=== PATIENT | female | born 1970 | race Caucasian/White ===

== ENCOUNTER 2017-11-26 14:14 | Outpatient (REF) | payer OTHER, SELFPAY ==
[2017-11-26 19:36] LABS: Glucose 91 mg/dL (70-100); TSH 1.47 uIU/mL (0.358-3.74)
[2017-11-29 11:56] LABS: Hepatitis B Surface Ag Negative (NEGAT)
[2017-11-29 13:11] LABS: HIV-1/2 Ag & Ab Screen Negative (NEGAT)
== END 2017-11-26 14:34 ==
LOC: NCHCN 14:14
PROVIDERS: PCP Nurse Practitioner Family; Visit Provider Nurse Practitioner Family
DX: Z00.00 Encounter for general adult medical examination without abnormal findings (principal); Z13.1 Encounter for screening for diabetes mellitus; Z13.29 Encounter for screening for other suspected endocrine disorder; Z11.59 Encounter for screening for other viral diseases; Z11.4 Encounter for screening for human immunodeficiency virus [HIV]
CPT/HCPCS: 82947; 87340; 87389; 84443

== ENCOUNTER 2018-01-07 01:08 | Outpatient (CLI) | payer OTHER, SELFPAY ==
--- NOTE | 2018-01-07 14:26 | DI.US_ITS ---
SYMPTOMS/DIAGNOSIS: PELVIC PAIN, BLOATING, R10.30, R14.0, VIK, DEBORAH OVARIES STILL PRESENT, HX ENDOMETRIOSIS PELVIC ULTRASOUND: Transabdominal and transvaginal examination was performed. The patient is status post hysterectomy. The ovaries were not visualized transabdominally or transvaginally. No adnexal masses, free pelvic fluid or hydronephrosis is identified. IMPRESSION: 1. Status post hysterectomy. 2. Nonvisualization of the ovaries. No pelvic mass is seen sonographically.
== END 2018-01-07 01:28 ==
PROVIDERS: PCP Nurse Practitioner Family; Visit Provider Nurse Practitioner Women's Health
DX: R10.2 Pelvic and perineal pain (principal); R10.30 Lower abdominal pain, unspecified; Z90.710 Acquired absence of both cervix and uterus
CPT/HCPCS: 76830; 76856

== ENCOUNTER 2018-04-29 14:53 | Outpatient (REF) | payer OTHER, SELFPAY ==
[2018-04-29 19:17] LABS: Abs Immature Grans 0.01 k/cumm (0.0-0.09); Absolute Basophil Count 0.04 k/cumm (0.0-0.2); Absolute Eosinophil Count 0.23 k/cumm (0.0-0.7); Absolute Lymphocyte Count 1.93 k/cumm (1.2-3.4); Absolute Monocyte Count 0.53 k/cumm (0.11-0.7); Absolute Neutrophil Count 2.71 k/cumm (1.2-6.7); Basophils % 0.7; Eosinophils % 4.2; HGB 13.4 g/dL (12.0-15.5); Immature Grans % 0.2; Lymphocytes % 35.4; Mean Corp. HGB Concentration 33.5 g/dL (32.0-36.0); Mean Corpuscular Hemoglobin 30.5 pg (27.0-33.0); Mean Corpuscular Volume 91.1 fL (80-95); Mean Platelet Volume 11.9 fL (8.0-11.0); Monocytes % 9.7; Neutrophils % 49.8; Platelet Count 234 x1000/uL (130-400); RBC 4.39 m/cumm (4.00-5.20); RBC Distribution Width 13.4 % (11.7-14.6); White Blood Cell Count 5.45 k/cumm (4.4-10.8)
[2018-04-29 19:32] LABS: ALT 21 U/L (12-78); AST 16 U/L (15-37); Albumin 3.6 g/dL (3.4-5.0); Alkaline Phosphatase 57 U/L (46-116); Anion Gap 8.3 mmol/L (3-11); BUN 18 mg/dL (7-18); Bilirubin, Total 0.2 mg/dL (0.2-1.0); CO2 27.7 mmol/L (21.0-32.0); CREATININE 1.09 mg/dL (0.55-1.02); Calcium 8.9 mg/dL (8.5-10.1); Chloride 107 mmol/L (98-107); Estimated GFR 53.35 (mL/min/1.73m2); Glucose 97 mg/dL (70-100); Potassium 4.9 mmol/L (3.5-5.1); Sodium 143 mmol/L (136-145); Total Protein 6.9 g/dL (6.4-8.2)
== END 2018-04-29 15:13 ==
LOC: NCHCN 14:53
PROVIDERS: PCP Nurse Practitioner Family; Visit Provider Nurse Practitioner Family
DX: R10.9 Unspecified abdominal pain (principal); K30 Functional dyspepsia
CPT/HCPCS: 80053; 85025

== ENCOUNTER 2018-05-07 11:14 | Outpatient (REF) | payer OTHER, SELFPAY ==
[2018-05-10 14:23] LABS: Helicobacter pylori Ag, Feces Negative (NEGAT)
== END 2018-05-07 11:34 ==
LOC: NCHCN 11:14
PROVIDERS: PCP Nurse Practitioner Family; Visit Provider Nurse Practitioner Family
DX: R10.9 Unspecified abdominal pain (principal)
CPT/HCPCS: 87338

== ENCOUNTER 2019-08-28 17:15 | Observation (INO) | payer OTHER, SELFPAY ==
[2019-08-28] VITALS (16 sets, daily range): BP systolic 106–136; BP diastolic 56–79; PULSE 61–79; RESP 13–25; TEMP 36.6–37.1; O2SAT 95–100
--- NOTE | 2019-08-28 17:32 | ED.GENADUL_ITS ---
Discharge Plan Disposition Patient Disposition: [facility] INPATIENT Condition: Serious Discharge Details Chief Complaint: RespSymp Clinical Impression: Non-ST elevation NV (NSTEMI) Admit Date/Time: 08/28/19 22:02 Admit Provider: oJse Mills Attending Provider: Jose Mills Primary Care Provider: Veronica Bello ED Provider: Jasiel Caicedo Hospital Course Hospital Course: Ms Guajardo is a 49 year old female with PMHx of seasonal allergies, asthma, MARYLOU, migraines, observed at [facility] from 08/28/2019 until 08/29/2019 while awaiting a bed at [facility] cardiology service where she was accepted by Dr Benitez for an NSTEMI, requiring interventional cardiology evaluation for a cardiac cath (unavailable at [facility]). She was treated with plavix, aspirin, heparin gtt. She did have chest pressure, which resolved SL nitroglycerin. Her Troponins have been 0.25->0.26->0.26. EKG is unchanged from prior (2016). She is symptom free at the time of transfer and is stable for transfer. For inpatient medications, please, look at MAR. Care for patient as well as completion of transfer summary on day of transfer took 40 minutes. Discharge Data Discharge Date/Time-TO BE ENTERED AT DEPARTURE: 08/28/19 23:20 Medical Decision Making <Pooja Iyer MD - Last Filed: 08/30/19 01:45> Indira Driver is a 49-year-old woman presenting to the emergency department with 2 weeks of cough, sinus pain/pressure, and shortness of breath with exertion. On exam patient is well and nontoxic-appearing with clear lungs to auscultation bilaterally. Concern for COVID, sinus infection, other viral res piratory infection, pneumonia. Less likely acute coronary syndrome, pulmonary embolism. Exam/history is not consistent with sepsis, acute aortic etiology. Plan for EKG, screening labs, chest x-ray. Will monitor and reassess. EKG with diffuse ST depression found on prior 2006, also with ST elevation in V1 and V2 of 1 mm, on prior EKG there was no ST elevation in V2 however morphology is unchanged. Labs reviewed, Pt with trop 0.25, indeterminate. On reassessment Pt reports that she feels quite well. She denies any pain including chest pain. Reviewed trop level with Pt, plan for admission vs transfer. Pt given ASA. [facility] transfer center contacted, EKGs faxed, awaiting callback from cardiology. Holding heparin, plavix for now pending cardiology recs given indeterminate trop and atypical presentation. Pt signed out to Dr. Caicedo pending labs, cxr, cardiology consult, dispo. Medical Records Medical records reviewed: Yes I reviewed the patient's medical records. Lab Data Lab results reviewed: Yes I reviewed the patient's lab results. ECG Data Attestation: I personally reviewed and interpreted this ECG (s) as follows: Interpretation: EKG shows sinus rhythm at 78, normal axis, diffuse ST depression seen on prior , [address] elevation in V1 seen on prior 2006, [address] elevation in V2 not seen on prior but with similar morphology to prior, no STEMI, nondiagnostic EKG <Jasiel Caicedo MD - Last Filed: 08/28/19 23:43> Received signout from Dr. Iyer. Please see her note regarding details of the the initial presentation and plan of care. Given the patient's elevated troponin and d-dimer, I discussed the case with on-call cardiology at [facility]. They agree that her EKG has not significantly changed versus comparison from 2006. Patient tentatively accepted in transfer to [facility] for tomorrow morning by Dr. Benitez. Second troponin was obtained and the patient was r eferred for CT scan of the chest to rule out PE. She was given 300 mg of Plavix and started on a heparin drip. CT revealed no pulmonary artery embolism, there is evidence of dilated main pulmonary artery and note of lower lobe groundglass infiltrates. Repeat troponin was 0.26. Patient admitted to Dr. Mills pending ongoing management and tentative plan for transfer to [facility] tomorrow. HPI <Pooja Iyer MD - Last Filed: 08/30/19 01:45> General Mode of arrival: ambulatory . Date/Time Provider Initiated Documentation: 08/28/19 17:32 . Limitations to Documentation: no limitations . Information obtained by: patient, RN notes reviewed and old records reviewed . HPI Narrative: Indira Driver is a 49-year-old woman with a history of asthma, depression, migraine presenting to the emergency department with 2 weeks of cough, sinus pain, and shortness of breath. Patient reports that she was tested for COVID in early August. She reports that she has had persistent but not worsening cough, sinus pressure, and shortness of breath. Patient reports that shortness of breath is worse with exertion. She denies any other pain other than sinus pain. She denies fever, lightheadedness, vomiting, diarrhea, numbness, weakness, rash. Patient reports that she has been eating and drinking as usual. Patient reports that she has had sinus infections in the past which this feels similar to, although she has not had similar persistent cough/shortness of breath prior to this episode. Related Data Home Medications Medication Instructions Recorded Confirmed sumatriptan succinate [Imitrex] 100 mg PO PRN #10 tab-cap 11/12/16 08/28/19 fluticasone propionate [Flonase 9.9 ml NS DAILY 12/23/16 08/28/19 Allergy Relief] hydroxyzine HCl 25 mg tablet 25 mg PO Q6H PRN #90 tab-cap 08/03/18 08/28/19 gabapentin 300 mg capsule 300 mg PO DIRECTED #60 cap 04/03/19 08/28/19 topiramate 100 mg tablet 50 mg PO as directed #90 tab-cap 08/15/19 08/28/19 duloxetine 60 mg capsule,delayed 60 mg PO DAILY #30 mg 08/21/19 08/28/19 release Previous Rx's Medication Instructions Recorded hydroxyzine HCl 25 mg tablet 25 mg PO Q6H PRN #90 tab-cap 08/03/18 gabapentin 300 mg capsule 300 mg PO DIRECTED #60 cap 04/03/19 topiramate 100 mg tablet 50 mg PO as directed #90 tab-cap 08/15/19 duloxetine 60 mg capsule,delayed 60 mg PO DAILY #30 mg 08/21/19 release Allergies Allergy/AdvReac Type Severity Reaction Status Date / Time clobetasol AdvReac Intermediate Skin Rash Verified 08/28/19 17:22 environmental Allergy Mild Uncoded 08/28/19 17:22 General Stated Complaint: RespSymp MIKAELA: 3 Review of Systems <Pooja Iyer MD - Last Filed: 08/30/19 01:45> Narrative: Constitutional: denies fevers Eyes: denies eye pain ENT: denies ear pain, dental pain, reports bilateral maxillary and frontal sinus pain, mild sore throat Cardiovascular: denies chest pain, edema, orthopnea, PND Respiratory: Reports SOB, cough GI: denies abdominal pain, vomiting, diarrhea : denies flank pain MSK: denies back pain, neck pain, arthralgias, myalgias Skin: denies rash Neuro: denies headaches, numbness, weakness PFSH <Pooja Iyer MD - Last Filed: 08/30/19 01:45> Medical History Asthma (Chronic) Depression (Chronic) Endometriosis (Chronic) Insomnia (Chronic) Migraine (Chronic) Migraine headache without aura (Acute) MARYLOU (obstructive sleep apnea) (Chronic) Overweight (Chronic) Surgical History History of partial hysterectomy (Resolved) Family History Daughter Migraines Mother Hypertension Father Heart disease Social History Smoking/Tobacco Use Status: Never Alcohol Intake: never Drug use: Never Do you feel safe at home: Yes Do you feel safe in your relationship?: Yes Female Reproductive History Menstrual Menopause type: surgical History History 2 Para 2 Hx # Term Pregnancies Multiple births Hx # Pregnancies Ectopic pregnancies AB induced Hx Number of Living Children AB spontaneous Exam <Pooja Iyer MD - Last Filed: 08/30/19 01:45> Narrative Exam Narrative: Constitutional: well and [id number], pleasant, conversing normally HENT: head atraumatic/normocephalic/normal inspection, mucous membranes moist Eyes: conjunctiva normal, sclera normal, pupils 3mm b/l Neck: no stridor, normal ROM, trachea midline Chest: normal inspection Resp: normal work of breathing, LCTAB Cardio: normal rate, normal rhythm, no murmur appreciated Back: normal inspection, no rash Skin: warm, dry, normal color, no rash Neuro: alert, not altered, grossly non-focal, normal tone Ext: no edema, no posterior calf tenderness to palpation Psych: normal mood, normal affect, normal behavior Course <Pooja Iyer MD - Last Filed: 08/30/19 01:45> Vital Signs Vital signs: Vital Signs Temperature 36.6 C 08/28/19 17:23 Pulse 79 08/28/19 17:23 Respiratory Rate 18 08/28/19 17:23 Blood Pressure 136/65 08/28/19 17:23 Pulse Oximetry 97 08/28/19 17:23 Temperature 36.6 C 08/28/19 17:23 Temperature Source Temporal Artery Scan 08/28/19 17:23 Pulse 79 08/28/19 17:23 Respiratory Rate 18 08/28/19 17:23 Respiratory Effort Non-Labored 08/28/19 17:29 Respiratory Depth Normal 08/28/19 17:29 Blood Pressure 136/65 08/28/19 17:23 Pulse Oximetry 97 08/28/19 17:23 Oxygen Delivery Method Room Air 08/28/19 17:23 Oxygen Flow Rate 0 08/28/19 17:23 Pain Level 8 08/28/19 17:23 Sign Out <Pooja Iyer MD - Last Filed: 08/30/19 01:45> Sign Out Data: Sign Out Comment: Patient signed out to Dr. Caicedo at time of shift change with labs, reassessment pending Last updated by Pooja Iyer MD at 08/28/19 20:18
--- NOTE | 2019-08-28 19:55 | DI.RAD_ITS ---
EXAM: XR PORTABLE CHEST AP CLINICAL HISTORY: SOB, cough TECHNIQUE: COMPARISON: CT CT CHEST PE CTA from 08/28/2019 FINDINGS: Single portable view obtained. Old right clavicular fracture noted. The lungs are grossly clear. N o pleural effusion. IMPRESSION: No evidence of acute process. Please see accompanying chest CT report.
--- NOTE | 2019-08-28 20:08 | DI.VRAD_ITS ---
PROCEDURE INFORMATION: Exam: XR Chest, 1 View Exam date and time: 08/28/2019 7:56 PM Age: 49 years old Clinical indication: Shortness of breath and other: Cough; Patient HX: Cough and SOB TECHNIQUE: Imaging protocol: XR of the chest Views: 1 view. COMPARISON: No relevant prior studies available. FINDINGS: Lungs: Unremarkable. No consolidation. Pleural space: Unremarkable. No pleural effusion. No pneumothorax. Heart/Mediastinum: Unremarkable. No cardiomegaly. Bones/joints: Unremarkable. IMPRESSION: No acute findings. Dictated and Authenticated by: Van Ribeiro MD. Ordering:JOHANA Patton MD
[2019-08-28 20:12] LABS: ALT 24 U/L (14-59); AST 25 U/L (15-37); Abs Immature Grans 0.02 k/cumm (0.0-0.09); Absolute Basophil Count 0.03 k/cumm (0.0-0.2); Absolute Eosinophil Count 0.44 k/cumm (0.0-0.7); Absolute Lymphocyte Count 1.52 k/cumm (1.2-3.4); Absolute Neutrophil Count 6.21 k/cumm (1.2-6.7); Albumin 4.1 g/dL (3.4-5.0); Alkaline Phosphatase 59 U/L (46-116); Anion Gap 12.7 mmol/L (3-11); BUN 14 mg/dL (7-18); Basophils % 0.3; Bilirubin, Total 0.6 mg/dL (0.2-1.0); CO2 22.3 mmol/L (21.0-32.0); Chloride 103 mmol/L (98-107); Eosinophils % 4.9; Estimated GFR 58.69 (mL/min/1.73m2); Glucose 88 mg/dL (74-106); HCT 43.7 % (36.0-46.0); HGB 14.4 g/dL (12.0-15.5); Immature Grans % 0.2 %; Lymphocytes % 16.9; Mean Corpuscular Hemoglobin 30.8 pg (27.0-33.0); Mean Corpuscular Volume 93.4 fL (80-95); Mean Platelet Volume 11.3 fL (8.0-11.0); Monocytes % 8.9; Neutrophils % 68.8; Platelet Count 248 x1000/uL (130-400); Potassium 3.9 mmol/L (3.5-5.1); RBC 4.68 m/cumm (4.00-5.20); RBC Distribution Width 14.3 % (11.7-14.6); Sodium 138 mmol/L (136-145); White Blood Cell Count 9.02 k/cumm (4.4-10.8)
[2019-08-28 20:13] LABS: Troponin I 0.25 ng/mL (<0.06)
[2019-08-28] MEDS: Normal Saline Flush 10 ML SYR IVP (20:29)
[2019-08-28] MEDS: Aspirin 81 MG CHEW 324 MG CH (20:33)
[2019-08-28 20:53] LABS: D-Dimer 1037 ng/mlFEU (<500)
--- NOTE | 2019-08-28 20:55 | NUR.NOTE ---
Assumed care of pt. Report from Debbie. Plan for EKG/trop at 2129. Pt reports several weeks of chest pain with coughing, SOB. Reports tight chest with cough that radiates to jaw and head with associated SOB, dizziness and diaphoresis, intermittent productive cough. Denies fevers. Pain 9/10 with cough.
--- NOTE | 2019-08-28 21:00 | DI.CT_ITS ---
EXAM: CT CHEST PE CTA CLINICAL HISTORY: exertional dyspnea, elev ddimer TECHNIQUE: COMPARISON: No exams were available for comparison FINDINGS: CT angiography of the chest was performed with bolus infusion of 100 cc of Omnipaque 350. Images obt ained through the upper abdomen shows grossly unremarkable appearance of visualized portions of liver , spleen, pancreas, adrenals, and kidneys Cardiac size is at the upper limits of normal. There is mild nonspecific enlargement of main pulmona ry artery. There is no evidence of pulmonary embolic disease. No gross abnormality of thoracic aort a and major branches. No mediastinal or hilar adenopathy. There are subtle ground-glass opacities versus mosaic attenuation of the lower lobes. No focal conso lidation seen. No pleural effusion or pneumothorax. Tracheobronchial tree appears intact. IMPRESSION: No evidence of pulmonary embolic disease. Question mild ground-glass nonspecific opacities versus mo saic attenuation of lower lobes.
[2019-08-28 21:19] LABS: NT-proBNP 2529 pg/mL (<300)
--- NOTE | 2019-08-28 21:40 | HPE_ITS ---
Date of service: 08/28/19 Time of Service: 21:40 Assessment and Plan Assessment and plan (1) Chest pain: Status: Acute Assessment and plan: Progressive exertional CP, fair possibility ACS (viz. [place]). Will complete troponins, and continue ASA, Plavix and heparin. Stress test in AM unless clear evidence by enzymes of definitive ACS, in which case would advise cath. Doubt PE but will await CTA. As to the cough, sinus congestion this is likely allergies but given duration would consider antibiotics for possible supervening sinusitis. She is disinclined to have any treatment at this point in this regard and will monitor. As to her fatigue, which appears to be related to poor sleep, she states she has MARYLOU and her CPAP is not working well. Would consider having RT look into this if she remains. History of Present Illness History of Present Illness Chief Complaint: CP Narrative: 49 female came in initially due to lingering cough and sinus congestion, typical for her seasonal allergies, but then reported 2 months of progressive exertional dyspnea associated with chest tightness, resolves in minutes with rest. Has been progressively limiting activities to avoid or limit symptoms. In ER findings of note for troponin 0.25, EKG showing more or less diffuse ST depressions but similar to baseline (2006). d-Dimer also 1037 and is enroute to CTA at present. 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 Received ASA 325 and Plavix 300 and heparin qtt being started. ER had discussed case with [facility] [place] [place] for possible transfer but no availability. Admitted to complete r/o series and then, if flat, stress test in AM. Only complaint at present moment is fatigue -- allows that she has been having trouble sleeping recently. But no CP as long as she remains at rest. Review of Systems All systems reviewed & are unremarkable except as noted in HPI and below PFSH Medical History Asthma (Chronic) Depression (Chronic) Endometriosis (Chronic) Insomnia (Chronic) Migraine (Chronic) Migraine headache without aura (Acute) MARYLOU (obstructive sleep apnea) (Chronic) Overweight (Chronic) Surgical History History of partial hysterectomy (Resolved) Family History Daughter Migraines Mother Hypertension Father Heart disease Social History Smoking/Tobacco Use Status: Never Alcohol Intake: never Drug use: Never Do you feel safe at home: Yes Do you feel safe in your relationship?: Yes Female Reproductive History Menstrual Menopause type: surgical History History 2 Para 2 Hx # Term Pregnancies Multiple births Hx # Pregnancies Ectopic pregnancies AB induced Hx Number of Living Children AB spontaneous Meds Home Medications and Allergies Home Medications Medication Instructions Recorded Confirmed Type sumatriptan succinate [Imitrex] 100 mg PO PRN #10 tab-cap 11/12/16 08/28/19 History fluticasone propionate [Flonase 9.9 ml NS DAILY 12/23/16 08/28/19 History Allergy Relief] hydroxyzine HCl 25 mg tablet 25 mg PO Q6H PRN #90 tab-cap 08/03/18 08/28/19 Rx gabapentin 300 mg capsule 300 mg PO DIRECTED #60 cap 04/03/19 08/28/19 Rx topiramate 100 mg tablet 50 mg PO as directed #90 tab-cap 08/15/19 08/28/19 Rx duloxetine 60 mg capsule,delayed 60 mg PO DAILY #30 mg 08/21/19 08/28/19 Rx release Allergies Allergy/AdvReac Type Severity Reaction Status Date / Time clobetasol AdvReac Intermediate Skin Rash Verified 08/28/19 17:22 environmental Allergy Mild Uncoded 08/28/19 17:22 Exam Narrative Exam Narrative: 113/70, 764, 37.1, 17,98%RA. HEENT unremarkable; neck supple w/o JVD; lungs few rhonchi right base, clear otherwise; heart RRR w/o MRG; abdomen soft and NT; extremities w/o edema, pulses 2+/=; neuro OLx3e, non-focal Results Labs Result diagrams: 08/28/19 19:45 08/28/19 19:45 Labs: Laboratory Results - last 24 hr 08/28/19 08/28/19 08/28/19 19:45 19:45 19:45 WBC 9.02 RBC 4.68 Hgb 14.4 Hct 43.7 MCV 93.4 MCH 30.8 MCHC 33.0 RDW 14.3 Plt Count 248 MPV 11.3 H Immature Gran % 0.2 Neutrophils % 68.8 Lymphocytes % 16.9 Monocytes % 8.9 Eosinophils % 4.9 Basophils % 0.3 Absolute Neutrophils 6.21 Absolute Lymphocytes 1.52 Absolute Monocytes 0.80 H Absolute Eosinophils 0.44 Absolute Basophils 0.03 D-Dimer 1037 H Sodium 138 Potassium 3.9 Chloride 103 Carbon Dioxide 22.3 Anion Gap 12.7 H BUN 14 Creatinine 1.00 Estimated GFR/1.73 m2 58.69 Glucose 88 Calcium 9.0 Total Bilirubin 0.6 AST 25 ALT 24 Alkaline Phosphatase 59 Troponin I 0.25 H* NT-Pro-B Natriuret Pep Total Protein 8.0 Albumin 4.1 08/28/19 19:45 WBC RBC Hgb Hct MCV MCH MCHC RDW Plt Count MPV Immature Gran % Neutrophils % Lymphocytes % Monocytes % Eosinophils % Basophils % Absolute Neutrophils Absolute Lymphocytes Absolute Monocytes Absolute Eosinophils Absolute Basophils D-Dimer Sodium Potassium Chloride Carbon Dioxide Anion Gap BUN Creatinine Estimated GFR/1.73 m2 Glucose Calcium Total Bilirubin AST ALT Alkaline Phosphatase Troponin I NT-Pro-B Natriuret Pep 2529 H Total Protein Albumin Last Vital Signs Temp 37.1 C 08/28/19 20:30 Pulse 64 08/28/19 21:37 Resp 17 08/28/19 21:37 BP 113/70 08/28/19 21:37 Pulse Ox 98 08/28/19 21:37 COVID-19 Screening In the past 14 days, have you traveled outside of [place]?: NO Had IN PERSON contact w/suspected or confirmed C-19 person: No
[2019-08-28] MEDS: Heparin 5,000 UNITS/ML VIAL 5800 UNITS IV (21:45)
[2019-08-28] MEDS: Clopidogrel 300 MG TAB PO (21:45)
[2019-08-28] MEDS: Omnipaque 350 MG/ML 100 ML BTL IJ (22:05)
[2019-08-28] MEDS: Normal Saline - Diluent 50 ML VIAL IV (22:06)
[2019-08-28 22:17] LABS: Troponin I 0.26 ng/mL (<0.06)
[2019-08-28 22:57] LABS: INR 1.1 (0.9-1.1); PTT Activated 28.6 sec (21.0-31.4); Prothrombin Time 10.6 sec (9.3-11.0)
--- NOTE | 2019-08-28 23:09 | DI.VRAD_ITS ---
PROCEDURE INFORMATION: Exam: CT Angiography Chest With Contrast Exam date and time: 08/28/2019 9:07 PM Age: 49 years old Clinical indication: Abnormal findings; Abnormal diagnostic tests; Elevated d-dimer; Patient HX: Exertional dyspnea, elevated ddimer TECHNIQUE: Imaging protocol: Computed tomographic angiography of the chest with intravenous contrast. 3D rendering: MIP and/or 3D reconstructed images were created by the technologist. COMPARISON: CR XR PORTABLE CHEST AP 08/28/2019 7:49 PM FINDINGS: Pulmonary arteries: Main pulmonary artery dilated to 3.5 cm. No pulmonary artery filling defects. Aorta: Unremarkable. No aortic aneurysm. No aortic dissection. Lungs: Subtle, patchy ground-glass infiltrates in lower lobes central airways patent. Pleural space: No pneumothorax. No pleural effusion. Heart: Heart normal in size. No pericardial effusion. No right ventricular strain pattern demonstrated. Lymph nodes: Mediastinal and hilar adenopathy. Bones/joints: The spine demonstrates mild degenerative changes at multiple levels. No acute fracture. Soft tissues: Unremarkable. IMPRESSION: 1. No pulmonary artery embolism demonstrated. 2. Bilateral lower lobe ground-glass infiltrates. 3. Dilated main pulmonary artery as could be seen with pulmonary hypertension. 4. Adenopathy. Dictated and Authenticated by: Van Ribeiro MD. Ordering:BRITTNEY Weathers MD
[2019-08-29] VITALS (14 sets, daily range): BP systolic 104–122; BP diastolic 38–67; PULSE 56–69; RESP 14–21; TEMP 36–36.6; O2SAT 91–98
[2019-08-29] MEDS: Zolpidem 5 MG TAB PO (00:20)
[2019-08-29] MEDS: Topiramate 100 MG TAB PO (00:20)
[2019-08-29] MEDS: DULoxetine 30 MG CAP 60 MG PO (00:20)
[2019-08-29 04:43] LABS: PTT Activated 80.6 sec (21.0-31.4)
[2019-08-29 04:45] LABS: Troponin I 0.26 ng/mL (<0.06)
--- NOTE | 2019-08-29 08:13 | W.PM.PROGNOT ---
Subjective Subjective Interval history since last seen: [place] [facility] [place]. Echo at 11. Needs an EKG this am. No CP overnight. No arrhythmias overnight. SR in the 70s this am. On heparin gtt, aspirin, plavix. Occasionally dizzy. Based on CT, she is a PUI. Objective Objective Clinical Data: Abnormal lab results 08/28/19 08/28/19 08/28/19 Range/Units 19:45 19:45 19:45 MPV 11.3 H (8.0-11.0) fL Absolute Monocytes 0.80 H (0.11-0.7) k/cumm APTT (21.0-31.4) sec D-Dimer 1037 H (<500) ng/mlFEU Anion Gap 12.7 H (3-11) mmol/L Troponin I 0.25 H* (<0.06) ng/mL NT-Pro-B Natriuret Pep (<300) pg/mL 08/28/19 08/28/19 08/29/19 Range/Units 19:45 21:50 04:10 MPV (8.0-11.0) fL Absolute Monocytes (0.11-0.7) k/cumm APTT (21.0-31.4) sec D-Dimer (<500) ng/mlFEU Anion Gap (3-11) mmol/L Troponin I 0.26 H* 0.26 H* (<0.06) ng/mL NT-Pro-B Natriuret Pep 2529 H (<300) pg/mL 08/29/19 Range/Units 04:10 MPV (8.0-11.0) fL Absolute Monocytes (0.11-0.7) k/cumm APTT 80.6 H* D (21.0-31.4) sec D-Dimer (<500) ng/mlFEU Anion Gap (3-11) mmol/L Troponin I (<0.06) ng/mL NT-Pro-B Natriuret Pep (<300) pg/mL Vital Signs Temperature 36.6 C 08/29/19 04:05 Temperature Source Temporal Artery Scan 08/29/19 04:05 Pulse 61 08/29/19 02:01 Pulse 58 L 08/29/19 03:30 Respiratory Rate 08/29/19 04:05 Respiratory Effort Non-Labored 08/29/19 04:05 Respiratory Depth Normal 08/29/19 04:05 Respiratory Pattern Normal 08/29/19 04:05 Blood Pressure 117/51 L 08/29/19 02:01 Blood Pressure Mean 67 08/29/19 02:01 Pulse Oximetry 98 08/29/19 04:05 Oxygen Delivery Method Room Air 08/29/19 04:05 Oxygen Flow Rate 0 08/29/19 04:05 Pain Level 0 08/29/19 04:05 Intake & Output 08/28/19 08/28/19 08/29/19 11:59 23:59 11:59 Intake Total 269.667 / 269.667 Balance 269.667 / 269.667 Weight 97.8 kg 95.8 kg Intake: IV 69.667 / 69.667 Oral 200 / 200 Laboratory Results WBC 9.02 k/cumm (4.4-10.8) 08/28/19 19:45 RBC 4.68 m/cumm (4.00-5.20) 08/28/19 19:45 Hgb 14.4 g/dL (12.0-15.5) 08/28/19 19:45 Hct 43.7 % (36.0-46.0) 08/28/19 19:45 MCV 93.4 fL (80-95) 08/28/19 19:45 MCH 30.8 pg (27.0-33.0) 08/28/19 19:45 MCHC 33.0 g/dL (32.0-36.0) 08/28/19 19:45 RDW 14.3 % (11.7-14.6) 08/28/19 19:45 Plt Count 248 x1000/uL (130-400) 08/28/19 19:45 MPV 11.3 fL (8.0-11.0) H 08/28/19 19:45 Immature Gran % 0.2 % 08/28/19 19:45 Neutrophils % 68.8 08/28/19 19:45 Lymphocytes % 16.9 08/28/19 19:45 Monocytes % 8.9 08/28/19 19:45 Eosinophils % 4.9 08/28/19 19:45 Basophils % 0.3 08/28/19 19:45 Absolute Neutrophils 6.21 k/cumm (1.2-6.7) 08/28/19 19:45 Absolute Lymphocytes 1.52 k/cumm (1.2-3.4) 08/28/19 19:45 Absolute Monocytes 0.80 k/cumm (0.11-0.7) H 08/28/19 19:45 Absolute Eosinophils 0.44 k/cumm (0.0-0.7) 08/28/19 19:45 Absolute Basophils 0.03 k/cumm (0.0-0.2) 08/28/19 19:45 PT 10.6 sec (9.3-11.0) 08/28/19 21:50 INR 1.1 (0.9-1.1) 08/28/19 21:50 APTT 80.6 sec (21.0-31.4) H* D 08/29/19 04:10 D-Dimer 1037 ng/mlFEU (<500) H 08/28/19 19:45 Sodium 138 mmol/L (136-145) 08/28/19 19:45 Potassium 3.9 mmol/L (3.5-5.1) 08/28/19 19:45 Chloride 103 mmol/L (98-107) 08/28/19 19:45 Carbon Dioxide 22.3 mmol/L (21.0-32.0) 08/28/19 19:45 Anion Gap 12.7 mmol/L (3-11) H 08/28/19 19:45 BUN 14 mg/dL (7-18) 08/28/19 19:45 Creatinine 1.00 mg/dL (0.55-1.02) 08/28/19 19:45 Estimated GFR/1.73 m2 58.69 (mL/min/1.73m2) 08/28/19 19:45 Glucose 88 mg/dL (74-106) 08/28/19 19:45 Calcium 9.0 mg/dL (8.5-10.1) 08/28/19 19:45 Total Bilirubin 0.6 mg/dL (0.2-1.0) 08/28/19 19:45 AST 25 U/L (15-37) 08/28/19 19:45 ALT 24 U/L (14-59) 08/28/19 19:45 Alkaline Phosphatase 59 U/L (46-116) 08/28/19 19:45 Troponin I 0.26 ng/mL (<0.06) H* 08/29/19 04:10 NT-Pro-B Natriuret Pep 2529 pg/mL (<300) H 08/28/19 19:45 Total Protein 8.0 g/dL (6.4-8.2) 08/28/19 19:45 Albumin 4.1 g/dL (3.4-5.0) 08/28/19 19:45
--- NOTE | 2019-08-29 08:25 | PDOC.CMIN ---
- If Service Date Differs Date of service: 08/29/19 Time of Service: 08:25 Care Management Initial Assess REASON FOR HOSPITALIZATION:: Chest pain PAST MEDICAL HISTORY/PAST SURGICAL HISTORY:: Medical History . Asthma (Chronic). Depression (Chronic). Endometriosis (Chronic). Insomnia (Chronic). Migraine (Chronic). Migraine headache without aura (Acute). MARYLOU (obstructive sleep apnea) (Chronic). Overweight (Chronic). Surgical History . History of partial hysterectomy (Resolved) PREVIOUS FUNCTIONAL STATUS/SOCIAL/FAMILY SUPPORTS:: Indira lives in [place] with her Boby. CURRENT FUNCTIONAL STATUS:: CM was unable to meet with Indira as she is designated a PUI and is on isolation. ADVANCE DIRECTIVES:: none on file CODE STATUS:: Full Code INSURANCE COVERAGE / FINANCIAL ISSUES:: [facility] PRIMARY CARE PHYSICIAN:: Veronica Bello POTENTIAL DISCHARGE NEEDS:: transfer to tertiary care facility PATIENT/FAMILY EDUCATION NEEDS:: Discharge plan, limitations, follow up plan, Ask Me Three TRANSPORTATION:: via ambulance PLAN:: Indira will be transferred to [facility] [place] when a bed is available. She will transport via ambulance coordinated by nursing psychiatric social worker supervisor. CM to continue to support patient and family.
[2019-08-29] MEDS: Aspirin E.C. 81 MG TABEC PO (09:58)
[2019-08-29] MEDS: Clopidogrel 75 MG TAB PO (09:58)
[2019-08-29] MEDS: Pantoprazole 40 MG VIAL IVP (09:58)
[2019-08-29] MEDS: Topiramate 50 MG TAB PO (09:58)
[2019-08-29] MEDS: Normal Saline Flush 10 ML SYR IVP (09:59)
[2019-08-29] MEDS: Fluticasone NASAL SPRAY 16 GM BTL NS (10:00)
[2019-08-29 11:39] LABS: Anion Gap 11.7 mmol/L (3-11); BUN 14 mg/dL (7-18); CO2 21.3 mmol/L (21.0-32.0); CREATININE 0.83 mg/dL (0.55-1.02); Calcium 8.6 mg/dL (8.5-10.1); Chloride 104 mmol/L (98-107); Glucose 92 mg/dL (74-106); Magnesium 2.1 mg/dL (1.8-2.4); Sodium 137 mmol/L (136-145)
[2019-08-29 11:56] LABS: PTT Activated 37.6 sec (21.0-31.4)
[2019-08-29 13:04] LABS: COVID-19 RT-PCR UVMMC Result Negative (Negative)
--- NOTE | 2019-08-29 13:15 | DSE_ITS ---
Date of service: 08/29/19 Time of Service: 13:15 DS: Diagnosis Discharge Diagnosis (1) Non-ST elevation OR (NSTEMI): Status: Acute (2) Chest pain: Status: Acute (3) Acute bronchitis: Status: Acute (4) COVID-19 ruled out: Status: Acute Discharge Plan Disposition Patient Disposition: [facility] Condition: Serious Discharge Details Chief Complaint: RespSymp Clinical Impression: Non-ST elevation OR (NSTEMI) Reason For Visit: CP Admit Date/Time: 08/28/19 22:02 Admit Provider: Jose Mills Attending Provider: Jose Mills Primary Care Provider: Veronica Bello ED Provider: Jasiel Caicedo Hospital Course Hospital Course: Ms Guajardo is a 49 year old female with PMHx of seasonal allergies, asthma, MARYLOU, migraines, observed at [facility] from 08/28/2019 until 08/29/2019 while awaiting a bed at [facility] [place] where she was accepted by Dr Benitez for an NSTEMI, requiring interventional cardiology evaluation for a cardiac cath (unavailable at [facility]). She was treated with plavix, aspirin, heparin gtt. She did have chest pressure, which resolved SL nitroglycerin. Her Troponins have been 0.25->0.26->0.26. EKG is unchanged from prior (2016). She is symptom free at the time of transfer and is stable for transfer. For inpatient medications, please, look at MAY. Care for patient as well as completion of transfer summary on day of transfer took 40 minutes. Home Meds and New Rx's Prescriptions: No Action hydroxyzine HCl 25 mg tablet 25 mg PO Q6H PRN (Reason: headaches) Qty: 90 RF: 6 gabapentin 300 mg capsule 300 mg PO DIRECTED Qty: 60 RF: 3 sumatriptan succinate [Imitrex] 100 MG tablet 100 mg PO PRN Qty: 10 RF: 3 fluticasone propionate [Flonase Allergy Relief] 9.9 ML spray,suspension 9.9 ml NS DAILY RF: 0 topiramate [Topamax] 100 mg tablet 50 mg PO as directed Qty: 90 RF: 11 duloxetine [Cymbalta] 60 mg capsule,delayed release(DR/EC) 60 mg PO DAILY Qty: 30 RF: 11 Discharge Instructions Activity:: bedrest Equipment/Supplies:: No Equipment Needed Diet:: NPO Discharge Orders Discharge Orders: Discharge Order (Routine); Ordered 08/29/19 Ordered By: Gale Trinh DS: Summary Status at Discharge Functional status at discharge: independent ambulation Overall status at discharge: patient is not back to baseline Mental Status: mental status grossly normal Speech and Movement: speech and movement normal Mood: congruent mood Affect: normal affect Exam Narrative Exam Narrative: General: Very pleasant obese female, A&Ox3, laying comfortably in bed HEENT: EOMI, MMM Heart: RRR, no m/r/g Lungs: rhonchi B Abdomen: soft, nontender, nondistended Extremities: no e/c/c BLE's Psych Mental Status: mental status grossly normal Speech and Movement: speech and movement normal Mood: congruent mood Affect: normal affect DS: Data Vitals/I&O Vitals and I&O: Vital Signs Temperature 36.0 C L 08/29/19 12:42 Temperature Source Temporal Artery Scan 08/29/19 12:42 Pulse 66 08/29/19 13:07 Pulse 68 08/29/19 13:07 Respiratory Rate 15 08/29/19 13:07 Respiratory Effort Non-Labored 08/29/19 12:42 Respiratory Depth Normal 08/29/19 12:42 Respiratory Pattern Normal 08/29/19 04:05 Blood Pressure 115/51 L 08/29/19 13:07 Blood Pressure Mean 68 08/29/19 13:07 Blood Pressure Position Supine 08/29/19 12:42 Pulse Oximetry 96 08/29/19 13:04 Oxygen Delivery Method Room Air 08/29/19 12:42 Oxygen Flow Rate 0 08/29/19 12:42 Pain Level 0 08/29/19 13:07 Intake & Output 08/28/19 08/29/19 08/29/19 23:59 11:59 23:59 Intake Total 269.667 / 269.667 Output Total 100 / 100 Balance 269.667 / 169.667 -100 / 169.667 Weight 97.8 kg 95.8 kg Intake: IV 69.667 / 69.667 Oral 200 / 200 Output: Urine 100 / 100 Other: Comment Mixed with stool Stool Size Small Stool Characteristics Soft Liquid Brown Voiding Methods Bedside Commode Data Completed and Pending Completed studies during hospitalization [Text1]: CXR: No evidence of acute process. Please see accompanying chest CT report. CTA chest: No evidence of pulmonary embolic disease. Question mild ground-glass nonspecific opacities versus mosaic attenuation of lower lobes. Labs on day of discharge: Labs from last 24 hours 08/29/19 08/29/19 08/29/19 11:15 11:15 04:10 WBC RBC Hgb Hct MCV MCH MCHC RDW Plt Count MPV Immature Gran % Neutrophils % Lymphocytes % Monocytes % Eosinophils % Basophils % Absolute Neutrophils Absolute Lymphocytes Absolute Monocytes Absolute Eosinophils Absolute Basophils PT INR APTT 37.6 H D 80.6 H* D D-Dimer Sodium 137 Potassium 4.0 Chloride 104 Carbon Dioxide 21.3 Anion Gap 11.7 H BUN 14 Creatinine 0.83 Estimated GFR/1.73 m2 >= 60.00 Glucose 92 Calcium 8.6 Magnesium 2.1 Total Bilirubin AST ALT Alkaline Phosphatase Troponin I NT-Pro-B Natriuret Pep Total Protein Albumin Triglycerides Pending Total Cholesterol Pending LDL Cholesterol, Calc Pending HDL Cholesterol Pending COVID-19 PCR Nasopharyn COVID-19 PCR Ref Test Perform Site 08/29/19 08/28/19 08/28/19 04:10 21:50 21:50 WBC RBC Hgb Hct MCV MCH MCHC RDW Plt Count MPV Immature Gran % Neutrophils % Lymphocytes % Monocytes % Eosinophils % Basophils % Absolute Neutrophils Absolute Lymphocytes Absolute Monocytes Absolute Eosinophils Absolute Basophils PT 10.6 INR 1.1 APTT 28.6 D-Dimer Sodium Potassium Chloride Carbon Dioxide Anion Gap BUN Creatinine Estimated GFR/1.73 m2 Glucose Calcium Magnesium Total Bilirubin AST ALT Alkaline Phosphatase Troponin I 0.26 H* NT-Pro-B Natriuret Pep Total Protein Albumin Triglycerides Total Cholesterol LDL Cholesterol, Calc HDL Cholesterol COVID-19 PCR Negative Nasopharyn COVID-19 PCR Not Applicable Ref Test Perform Site [facility] 08/28/19 08/28/19 08/28/19 21:50 19:45 19:45 WBC RBC Hgb Hct MCV MCH MCHC RDW Plt Count MPV Immature Gran % Neutrophils % Lymphocytes % Monocytes % Eosinophils % Basophils % Absolute Neutrophils Absolute Lymphocytes Absolute Monocytes Absolute Eosinophils Absolute Basophils PT INR APTT D-Dimer 1037 H Sodium Potassium Chloride Carbon Dioxide Anion Gap BUN Creatinine Estimated GFR/1.73 m2 Glucose Calcium Magnesium Total Bilirubin AST ALT Alkaline Phosphatase Troponin I 0.26 H* NT-Pro-B Natriuret Pep 2529 H Total Protein Albumin Triglycerides Total Cholesterol LDL Cholesterol, Calc HDL Cholesterol COVID-19 PCR Nasopharyn COVID-19 PCR Ref Test Perform Site 08/28/19 08/28/19 19:45 19:45 WBC 9.02 RBC 4.68 Hgb 14.4 Hct 43.7 MCV 93.4 MCH 30.8 MCHC 33.0 RDW 14.3 Plt Count 248 MPV 11.3 H Immature Gran % 0.2 Neutrophils % 68.8 Lymphocytes % 16.9 Monocytes % 8.9 Eosinophils % 4.9 Basophils % 0.3 Absolute Neutrophils 6.21 Absolute Lymphocytes 1.52 Absolute Monocytes 0.80 H Absolute Eosinophils 0.44 Absolute Basophils 0.03 PT INR APTT D-Dimer Sodium 138 Potassium 3.9 Chloride 103 Carbon Dioxide 22.3 Anion Gap 12.7 H BUN 14 Creatinine 1.00 Estimated GFR/1.73 m2 58.69 Glucose 88 Calcium 9.0 Magnesium Total Bilirubin 0.6 AST 25 ALT 24 Alkaline Phosphatase 59 Troponin I 0.25 H* NT-Pro-B Natriuret Pep Total Protein 8.0 Albumin 4.1 Triglycerides Total Cholesterol LDL Cholesterol, Calc HDL Cholesterol COVID-19 PCR Nasopharyn COVID-19 PCR Ref Test Perform Site [facility] Medical History Asthma (Chronic) Depression (Chronic) Endometriosis (Chronic) Insomnia (Chronic) Migraine (Chronic) Migraine headache without aura (Acute) MARYLOU (obstructive sleep apnea) (Chronic) Overweight (Chronic) Surgical History History of partial hysterectomy (Resolved) Family History Daughter Migraines Mother Hypertension Father Heart disease Social History Smoking/Tobacco Use Status: Never Alcohol Intake: never Drug use: Never Do you feel safe at home: Yes Do you feel safe in your relationship?: Yes Female Reproductive History Menstrual Menopause type: surgical History History 2 Para 2 Hx # Term Pregnancies Multiple births Hx # Pregnancies Ectopic pregnancies AB induced Hx Number of Living Children AB spontaneous
[2019-08-29 13:32] LABS: Calculated LDL 160 mg/dL (<100); Cholesterol 219 mg/dL (<200); HDL Cholesterol 33 mg/dL (40-60); Triglyceride 130 mg/dL (<150)
== END 2019-08-29 13:15 | disposition short-term general hospital (02) ==
LOC: ER 22:35 → ICU 23:24
PROVIDERS: Student in an Organized Health Care Education/Training Program; Admitting Provider General Practice; Emergency Provider Emergency Medicine; PCP Nurse Practitioner Family; Visit Provider General Practice
DX: I21.4 Non-ST elevation (NSTEMI) myocardial infarction (principal); J20.9 Acute bronchitis, unspecified; J45.909 Unspecified asthma, uncomplicated; G47.33 Obstructive sleep apnea (adult) (pediatric); G43.909 Migraine, unspecified, not intractable, without status migrainosus; R05 Cough; R06.02 Shortness of breath; E66.3 Overweight; Z68.36 Body mass index [BMI] 36.0-36.9, adult; F32.9 Major depressive disorder, single episode, unspecified; F51.04 Psychophysiologic insomnia
CPT/HCPCS: 36415; 71275; 80048; 80053; 80061; 93005; 96365; 96376; 99222; 99239; 99285; U0003; 71045; 83735; 83880; 84484; 85025; 85379; 85610; 85730; 93010; 99217; 99218; G0378; J1644; J3490

== ENCOUNTER 2019-09-13 10:06 | Outpatient (REF) | payer OTHER, SELFPAY ==
[2019-09-13 17:24] LABS: TSH (W/Ref FT4) 2.42 uIU/mL (0.36-3.74)
== END 2019-09-13 10:26 ==
LOC: NCHCN 10:06
PROVIDERS: PCP Nurse Practitioner Family; Visit Provider Nurse Practitioner
DX: Z00.00 Encounter for general adult medical examination without abnormal findings (principal); Z13.29 Encounter for screening for other suspected endocrine disorder
CPT/HCPCS: 84443

== ENCOUNTER 2019-12-28 15:42 | Outpatient (REF) | payer OTHER, SELFPAY ==
[2019-12-31 22:54] LABS: Patient Race White; SARS-CoV-2 RNA Undetected (Undetected); SARS-CoV-2 Specimen Source Nasal
== END 2019-12-28 16:02 ==
LOC: NCHCN 15:42
PROVIDERS: PCP Nurse Practitioner Family; Visit Provider Nurse Practitioner Family
DX: R05 Cough (principal)
CPT/HCPCS: U0003

== ENCOUNTER 2020-01-05 02:27 | Outpatient (CLI) | payer OTHER, SELFPAY ==
[2020-01-05 08:43] LABS: Ferritin 147 ng/mL (8-252)
== END 2020-01-05 02:47 ==
PROVIDERS: PCP Nurse Practitioner Family; Visit Provider Nurse Practitioner
DX: M25.551 Pain in right hip (principal); M25.552 Pain in left hip
CPT/HCPCS: 36415; 82728

== ENCOUNTER 2020-05-17 14:46 | Outpatient (REF) | payer OTHER, SELFPAY ==
[2020-05-17 18:56] LABS: HCT 40.6 % (36.0-46.0); HGB 13.6 g/dL (11.2-15.7); MCH 30.6 pg (27.0-33.0); MCHC 33.5 % (32.0-36.0); MCV 91.4 fL (80-95); MPV 11.6 fL (8.0-11.0); Platelet Count 259 10^3/uL (130-400); RBC 4.44 10^6/uL (3.93-5.22); RDW 12.8 % (11.7-14.6); RDW-SD 42.7 fL; WBC 5.85 10^3/uL (4.4-10.8)
[2020-05-17 19:06] LABS: ALT 26 U/L (14-59); AST 17 U/L (15-37); Albumin 3.8 g/dL (3.4-5.0); Alkaline Phosphatase 55 U/L (46-116); BUN 20 mg/dL (7-18); Bilirubin, Total 0.4 mg/dL (0.2-1.0); Calcium 9.1 mg/dL (8.5-10.1); Chloride 107 mmol/L (98-107); Estimated GFR 58.45 (mL/min/1.73m2); Glucose 90 mg/dL (74-106); Potassium 4.4 mmol/L (3.5-5.1); Sodium 141 mmol/L (136-145); TSH (W/Ref FT4) 2.45 uIU/mL (0.36-3.74); Total Protein 7.3 g/dL (6.4-8.2)
[2020-05-20 11:19] LABS: Hepatitis C Ab w Rflx HCV PCR Negative (Negative)
[2020-05-20 11:40] LABS: HIV-1/2 Ag & Ab Screen Negative (Negative)
[2020-05-20 13:26] LABS: IgA 283 mg/dL (85-499); Interpretation (See Note); Tissue Transglutaminase IgA <1.2 U/mL (<4.0)
== END 2020-05-17 14:47 | disposition home or self-care (01) ==
LOC: NCHCN 14:46
PROVIDERS: PCP Nurse Practitioner Family; Visit Provider Nurse Practitioner Family
DX: R19.7 Diarrhea, unspecified (principal); Z11.4 Encounter for screening for human immunodeficiency virus [HIV]; Z11.59 Encounter for screening for other viral diseases
CPT/HCPCS: 80053; 82784; 83516; 85027; 86803; 87389; 84443

== ENCOUNTER 2020-05-22 01:57 | Outpatient (CLI) | payer OTHER, SELFPAY ==
[2020-05-22 12:22] LABS: Source Nasal/Nares
[2020-05-22 20:02] LABS: COVID-19 PCR Negative (Negative)
== END 2020-05-22 01:58 | disposition home or self-care (01) ==
LOC: LBO 01:57
PROVIDERS: PCP Nurse Practitioner Family; Visit Provider Family Medicine
DX: Z20.822 Contact with and (suspected) exposure to COVID-19 (principal); Z01.818 Encounter for other preprocedural examination
CPT/HCPCS: 87635

== ENCOUNTER 2020-05-24 01:44 | Outpatient (CLI) | payer OTHER, SELFPAY ==
[2020-05-24] MEDS: Albuterol HFA 18 GM 200 PUFF INH IH (09:19)
[2020-05-24] MEDS: Inhaler, Assist Device 1 EACH MC (09:20)
--- NOTE | 2020-06-03 16:14 | W.PFT ---
Date of service: 05/24/20 Time of Service: 08:29 Pulmonary Function Test Result Interpretation Spirometry: no evidence of obstructive airway dosease, no bronchodilator response Lung Volumes: no restriction Diffusion Capacity: mildly reduced , which is normal when corrected to alveolar volume Airway Pressure: normal Impression borderline mild isolated diffusion defect , which is normal when corrected to alveolar volume. May represent a normal variant Clinical Correlation therefore is recommended.
== END 2020-05-24 01:45 | disposition home or self-care (01) ==
LOC: RT 01:44
PROVIDERS: PCP Nurse Practitioner Family; Visit Provider Family Medicine
DX: R06.09 Other forms of dyspnea (principal); R05 Cough
CPT/HCPCS: 94060; 94726; 94729

== ENCOUNTER 2020-06-21 08:27 | Emergency (ER) | payer OTHER, SELFPAY ==
[2020-06-21 08:30] VITALS: BP 127/68; PULSE 68; RESP 18; TEMP 36.7; O2SAT 98
--- OUTSIDE RECORDS SUMMARY | 2020-06-21 08:34 | XMS_ITS ---
:1970 Author Care Team Providers Name Role Phone SALVATORE CHAPPELL Primary Care Provider [phone] Allergies Code Code System Name Reaction Severity Status Onset NKDA ? Medications Name Status Start Date Stop Date ? ? Claritin 10 mg tablet Active ? Not availa ble Take 1 tablet every day by oral route. doxepin 10 mg capsule Completed ? 04/17/2020 take 1 PO QHS duloxetine 60 mg capsule,delayed release Active ? Not available Take 1 capsule every day by oral route. Flonase Allergy Relief Active ? Not avail able gabapentin 300 mg capsule Active ? Not av ailable Take 1 capsule 3 times a day by oral route. hydroxyzine HCl 25 mg tablet Active ? Not available Take 1 tablet 3 times a day by oral route. ropinirole 1 mg tablet Active ? Not avail able take 1 PO 2-3 hours before bedtime topiramate 100 mg tablet Active ? Not vasquez ilable Take 1 tablet twice a day by oral route. trazodone 50 mg tablet Active ? Not avail able take 1-2 PO QHS Problems Name Status Onset Date Source ? Restless Legs Active 10/25/2019 ? Insomnia Active ? History Obstructive Sleep Apnea Syndrome Active ? History Migraine with Aura Active ? History Procedures None recorded. Results Lab Results None recorded. Past Encounters 01/12/2020 Obstructive Sleep Apnea Syndrome; Restle ss Legs; Insomnia Lakesha Smith [employer]: [address], [place] [address], Ph. 10/25/2019 Obstructive Sleep Apnea Syndrome; Restle ss Legs; Insomnia; Hip Pain Lakesha Smith [employer]: [address], [place] [address], Ph. Social History Tobacco Smoking Status Never Smoker Vaccine List None recorded. Plan of Care Reminders Provider Appointments None ? ? recorded. Lab None ? ? recorded. Referral None ? ? recorded. Procedures None ? ? recorded. Surgeries None ? ? recorded. Imaging None ? ? recorded. Vitals 01/12/2020 12:30PM Office 30 Height Weight BMI Blood Pressure 162.56 cm 99.43 kg 37.6 kg/m2 118/67 mm[Hg] 10/25/2019 11:30AM Office 30 Height Weight BMI Blood Pressure 162.56 cm 90.72 kg 34.3 kg/m2 128/62 mm[Hg] 04/14/2016 Height Weight Blood Pressure 161.93 cm 87.72 kg 114/68 mm[Hg] 02/12/2016 Height Weight Blood Pressure 161.93 cm 86.66 kg 129/76 mm[Hg] 12/20/2015 Height Weight Blood Pressure 161.93 cm 85.45 kg 128/70 mm[Hg]
--- NOTE | 2020-06-21 08:49 | ED.GENADUL_ITS ---
Discharge Plan Disposition Patient Disposition: HOME Condition: Good Discharge Details Clinical Impression: Tendinitis Primary Care Provider: Tim Rogers ED Provider: Negar Martines Home Meds and New Rx's Prescriptions: New diclofenac sodium [Voltaren] 1 % gel 4 g topical ONCE Qty: 150 RF: 0 Continued gabapentin 600 mg tablet 600 mg PO QHS Qty: 90 RF: 1 budesonide-formoterol [Symbicort] 160-4.5 mcg/actuation HFA aerosol inhaler 2 puff inhalation BID RF: 0 Emgality Pen 120 mg/mL pen injector 240 mg subcut ONCE Qty: 2 RF: 0 ropinirole 1 mg tablet 1 mg PO QHS RF: 0 trazodone 50 mg tablet 50 mg PO QHS PRNRF: 0 fluticasone propionate [Flonase Allergy Relief] 9.9 ML spray,suspension 9.9 ml NS DAILY RF: 0 topiramate [Topamax] 100 mg tablet 50 mg PO as directed Qty: 90 RF: 11 duloxetine [Cymbalta] 60 mg capsule,delayed release(DR/EC) 60 mg PO DAILY Qty: 30 RF: 11 hydroxyzine HCl 25 mg tablet 25 mg PO Q6H PRN (Reason: headaches) Qty: 90 RF: 6 Discharge Instructions Instructions: Tendinitis (ED) Additional Instructions: Please follow-up with physical therapy return earlier with worsening pain,redness, fever, or with progressing complaints rest your thumb Stand Alone Forms: Physical Therapy Referral, Work Release Referrals: Pema Acuna [PHYSICAL THERAPIST] - Discharge Data Discharge Date/Time-TO BE ENTERED AT DEPARTURE: 06/21/20 09:28 Medical Decision Making Patient without obvious evidence gout, no erythema, no swelling, No evidence of infectious etiology, no erythema or edema, no crepitus Likely tendinitis given repetitive use injury, unlikely to be fracture given the affected area -Splint and referred to PT Work note supplied Return precautions discussed and pt expressed understanding Differential Diagnosis Differential Diagnosis: Tendinitis, fracture, arthritis, gout Medical Records Medical records reviewed: Yes I reviewed the patient's medical records. Lab Data Lab results reviewed: Yes I reviewed the patient's lab results. HPI This 50-year-old female with history of on non-ST elevation ND, bronchitis, and migraine headache presents with report of left thumb and wrist pain for the past several weeks. She states that it become worse twice she presented today. She denies any known trauma to the affected area. She does use her thumb repetitively during her workday and states the pain is worse at the end of the day. 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 She denies any fever or chills. She denies any sensation change to the affected area. She denies any chest pain or shortness of breath. She denies any weakness to the affected extremity. General Date/Time Provider Initiated Documentation: 06/21/20 08:34 . Related Data Home Medications Medication Instructions Recorded Confirmed fluticasone propionate [Flonase 9.9 ml NS DAILY 12/23/16 06/21/20 Allergy Relief] topiramate 100 mg tablet 50 mg PO as directed #90 tab-cap 08/15/19 06/21/20 duloxetine 60 mg capsule,delayed 60 mg PO DAILY #30 mg 08/21/19 06/21/20 release hydroxyzine HCl 25 mg tablet 25 mg PO Q6H PRN #90 tab-cap 09/27/19 06/21/20 gabapentin 600 mg tablet 600 mg PO QHS #90 tab 04/09/20 06/21/20 budesonide-formoterol HFA 160 2 puff INHALATION BID 06/12/20 06/21/20 mcg-4.5 mcg/actuation aerosol inhaler galcanezumab-gnlm 120 mg/mL 240 mg SUBCUT ONCE #2 ml 06/12/20 06/21/20 subcutaneous pen injector ropinirole 1 mg tablet 1 mg PO QHS 06/12/20 06/21/20 trazodone 50 mg tablet 50 mg PO QHS PRN 06/12/20 06/21/20 diclofenac sodium [Voltaren] 4 g TOPICAL ONCE #150 g 06/21/20 Previous Rx's Medication Instructions Recorded topiramate 100 mg tablet 50 mg PO as directed #90 tab-cap 08/15/19 duloxetine 60 mg capsule,delayed 60 mg PO DAILY #30 mg 08/21/19 release hydroxyzine HCl 25 mg tablet 25 mg PO Q6H PRN #90 tab-cap 09/27/19 gabapentin 600 mg tablet 600 mg PO QHS #90 tab 04/09/20 galcanezumab-gnlm 120 mg/mL 240 mg SUBCUT ONCE #2 ml 06/12/20 subcutaneous pen injector diclofenac sodium [Voltaren] 4 g TOPICAL ONCE #150 g 06/21/20 Allergies Allergy/AdvReac Type Severity Reaction Status Date / Time clobetasol AdvReac Intermediate Skin Rash Verified 06/21/20 08:33 environmental Allergy Mild Uncoded 06/21/20 08:33 General Stated Complaint: Orthopedic MIKAELA: 4 Review of Systems Narrative: Review of systems obtained x3 aside from where indicated in HPI PFSH Medical History Asthma Depression Endometriosis Insomnia Migraine Migraine headache without aura Non-ST elevation ND (NSTEMI) MARYLOU (obstructive sleep apnea) Overweight Surgical History History of partial hysterectomy Family History Daughter Migraines Mother Hypertension Father Heart disease Social History Smoking/Tobacco Use Status: Never Smoking risk assessment performed?: Yes Alcohol Intake: never Drug use: Never Substance use type: does not use Do you feel safe at home: Yes Do you feel safe in your relationship?: Yes Female Reproductive History Menstrual Menopause type: surgical History History 2 Para 2 Hx # Term Pregnancies Multiple births Hx # Pregnancies Ectopic pregnancies AB induced Hx Number of Living Children AB spontaneous Exam Skin General skin exam: no rashes or lesions noted Extrem Left lower extremity: normal capillary refill Other: Left with tenderness over anatomical snuffbox, no erythema, no crepitus, pain predominantly with extension No obvious weakness Course Vital Signs Vital signs: Vital Signs Temperature 36.7 C 06/21/20 08:30 Pulse 68 06/21/20 08:30 Respiratory Rate 18 06/21/20 08:30 Blood Pressure 127/68 06/21/20 08:30 Pulse Oximetry 98 06/21/20 08:30 Temperature 36.7 C 06/21/20 08:30 Temperature Source Skin 06/21/20 08:30 Pulse 68 06/21/20 08:30 Respiratory Rate 18 06/21/20 08:30 Blood Pressure 127/68 06/21/20 08:30 Blood Pressure Position Sitting 06/21/20 08:30 Pulse Oximetry 98 06/21/20 08:30 Oxygen Delivery Method Room Air 06/21/20 08:30 Oxygen Flow Rate 0 06/21/20 08:30 Pain Level 10 06/21/20 08:30
== END 2020-06-21 09:28 | disposition home or self-care (01) ==
PROVIDERS: Emergency Provider Physician Assistant; PCP Nurse Practitioner Family
DX: M70.842 Other soft tissue disorders related to use, overuse and pressure, left hand (principal)
CPT/HCPCS: 29125; 99283

== ENCOUNTER 2020-07-05 03:33 | Outpatient (CLI) | payer OTHER, SELFPAY ==
--- NOTE | 2020-07-05 | DI.MAMMO_ITS ---
Exam(s) MAMMO SCREENING EXAM: MAMMO SCREENING CLINICAL HISTORY: SCREENING,Z12.39 TECHNIQUE: Bilateral full field digital CC and MLO mammographic images were obtained with 3D tomosyn thesis and utilizing computer aided detection (CAD). COMPARISON: Available for comparison. FINDINGS: Masses/Architectural Distortion: None seen. Microcalcifications: No suspicious pleomorphic-type are seen. Skin Thickening/Nipple Retraction: None. IMPRESSION: 1. No significant interval change with no specific features of malignancy noted. 2. Unless there is more urgent need, screening mammography is recommended, as per [employer] guidelines. BI-RADS Category 1 - Negative Breast Density - Category B - Scattered areas of fibroglandular density Breast density category C or D implies that the patient has dense breast tissue. Dense breast tissue is very common and is not abnormal but dense breast tissue can make it harder to find cancer on a ma mmogram. Also, dense breast tissue may increase their breast cancer risk. This information about the result of the mammogram report was provided to the patient to raise their awareness. Use this report when you speak with the patient about their risks for breast cancer, which includes their family hist ory. At that time, you may recommend for more screening tests (Ultrasound or MRI) as they might be us eful based on their risk. A negative radiographic report should not delay biopsy if a dominant or clinically suspicious mass is present. Up to ten percent of cancers are not identified on mammography. A negative report may reinforce clinical impression. Adenosis and dense breasts may obscure an underlying neoplasm. False positive reports average 6 to 10%. Patient will receive a letter notifying them of these results.
== END 2020-07-05 03:53 ==
PROVIDERS: PCP Nurse Practitioner Family; Visit Provider Nurse Practitioner Family
DX: Z12.31 Encounter for screening mammogram for malignant neoplasm of breast (principal)
CPT/HCPCS: 77063; 77067

== ENCOUNTER 2020-09-05 20:36 | Outpatient (REF) | payer OTHER, SELFPAY ==
[2020-09-07 14:11] LABS: COVID-19 RT-PCR UVMMC Result Negative (Negative)
== END 2020-09-05 20:37 | disposition home or self-care (01) ==
LOC: NCHCN 20:36
PROVIDERS: PCP Nurse Practitioner Family; Visit Provider Physician Assistant
DX: R05 Cough (principal); Z20.822 Contact with and (suspected) exposure to COVID-19
CPT/HCPCS: U0003

== ENCOUNTER 2020-09-16 03:29 | Outpatient (CLI) | payer OTHER, SELFPAY ==
[2020-09-16 14:20] LABS: Abs Immature Grans 0.02 10^3/uL (0.0-0.06); Absolute Basophil Count 0.05 10^3/uL (0.0-0.2); Absolute Eosinophil Count 0.15 10^3/uL (0.0-0.7); Absolute Lymphocyte Count 1.61 10^3/uL (1.2-3.4); Absolute Monocyte Count 0.43 10^3/uL (0.1-0.8); Absolute Neutrophil Count 4.16 10^3/uL (1.2-6.7); Basophils % 0.8; Eosinophils % 2.3; HCT 41.9 % (36.0-46.0); Immature Grans % 0.3; Lymphocytes % 25.1; MCH 30.7 pg (27.0-33.0); MCHC 33.4 % (32.0-36.0); MCV 91.9 fL (80-95); MPV 11.4 fL (8.0-11.0); Monocytes % 6.7; Neutrophils % 64.8; Nucleated RBC 0 %; Platelet Count 260 10^3/uL (130-400); RBC 4.56 10^6/uL (3.93-5.22); RDW-SD 43.7 fL; WBC 6.42 10^3/uL (4.4-10.8)
[2020-09-16 15:13] LABS: Anion Gap 11.9 mmol/L (3-11); BUN 21 mg/dL (7-18); C-Reactive Protein 0.13 mg/dL (0.0-0.3); CO2 25.1 mmol/L (21.0-32.0); CREATININE 1.1 mg/dL (0.55-1.02); Calcium 9.4 mg/dL (8.5-10.1); Chloride 109 mmol/L (98-107); Estimated GFR 52.36 (mL/min/1.73m2); Glucose 112 mg/dL (74-106); Potassium 4.3 mmol/L (3.5-5.1); Sodium 146 mmol/L (136-145)
[2020-09-17 15:13] LABS: ANA Interpretation Positive (Negative); ANA Titer Pattern 1:160 Speckled
[2020-09-17 15:32] LABS: RNP Ab, IgG 1.5 Units (<20.0); SS-A Antibody 1.2 Units (<20.0); SS-B (La) Ab, IgG 4.9 Units (<20.0); Sm (Smith) Ab, IgG 3.4 Units (<20.0)
[2020-09-18 08:50] LABS: IgE 13 IU/mL (<158)
[2020-09-18 12:04] LABS: Myeloperoxidase Ab IgG <0.2 U; Proteinase 3 Ab (PR3) <0.2 U
[2020-09-18 14:19] LABS: Angiotensin Converting Enzyme 53 U/L (16 - 85)
[2020-09-18 16:10] LABS: c-ANCA Negative (Negative); p-ANCA Negative (Negative)
== END 2020-09-16 03:30 | disposition home or self-care (01) ==
LOC: LBO 03:29
PROVIDERS: PCP Nurse Practitioner Family; Visit Provider Internal Medicine Pulmonary Disease
DX: R06.09 Other forms of dyspnea (principal); R93.89 Abnormal findings on diagnostic imaging of other specified body structures; J01.91 Acute recurrent sinusitis, unspecified
CPT/HCPCS: 36415; 80048; 82164; 82784; 82785; 83516; 85025; 86038; 86140; 86235; 86255

== ENCOUNTER 2020-12-22 14:25 | Emergency (ER) | payer OTHER, SELFPAY ==
[2020-12-22 14:36] VITALS: BP 132/79; PULSE 63; RESP 16; TEMP 36.6; O2SAT 96
--- NOTE | 2020-12-22 15:00 | DI.CT_ITS ---
Exam(s) CT THORACIC SPINE WO EXAM: CT THORACIC SPINE WO CLINICAL HISTORY: tenderness t2-3. TECHNIQUE: Imaging Protocol: Axial computed tomography images with coronal and sagittal reformatted images were created and reviewed. COMPARISON: No exams were available for comparison FINDINGS: Bones: No fractures or dislocations are seen. The alignment of the spine is normal including the cerv icothoracic junction. Mild degenerative changes are seen in the thoracic spine. Soft tissues: The soft tissues of the chest are unremarkable. No large disk herniations are identifie d. IMPRESSION: No acute fracture or subluxation in the thoracic spine. RADIATION DOSE DELIVERED: 769.83mGy.cm Total DLP 769.83mGy.cm Total DLP DATA REPOSITORY: All CT scans at this facility are submitted to the National Radiology Data Registry (NRDR) Dose Index Registry (DIR) with the [employer] ([employer]). RADIATION OPTIMIZATION: All CT scans at this facility use at least one of these dose optimization te chniques: automated exposure control; mA and/or kV adjustment per patient size (includes targeted exa ms where dose is matched to clinical indication); or iterative reconstruction.
--- NOTE | 2020-12-22 15:00 | DI.CT_ITS ---
Exam(s) CT HEAD CERVICAL SPINE WO EXAM: CT HEAD CERVICAL SPINE WO CLINICAL HISTORY: fall, [place]. TECHNIQUE: Imaging Protocol: Axial computed tomography images with coronal and sagittal reformatted images were created and reviewed COMPARISON: No exams were available for comparison FINDINGS: CT Head: Ventricles and Extra axial spaces: Normal in size and morphology for the patient's age. Hemorrhage: None. Cerebral parenchyma: Normal. Midline shift: None. Brainstem/Cerebellum: Normal. Calvarium: Normal. Visualized Paranasal sinuses/Mastoids: Clear. Soft Tissues: Unremarkable. CT Cervical Spine: Bones: No acute fracture or subluxation. Degenerative changes are present. Soft Tissues: Unremarkable. Thyroid gland: Unremarkable. Lung Apices: Clear. IMPRESSION: 1. No acute intracranial process. 2. No acute fracture or subluxation in the cervical spine. RADIATION DOSE DELIVERED: 1,366.94mGy.cm Total DLP DATA REPOSITORY: All CT scans at this facility are submitted to the National Radiology Data Registry (NRDR) Dose Index Registry (DIR) with the [employer] ([employer]). RADIATION OPTIMIZATION: All CT scans at this facility use at least one of these dose optimization te chniques: automated exposure control; mA and/or kV adjustment per patient size (includes targeted exa ms where dose is matched to clinical indication); or iterative reconstruction.
--- NOTE | 2020-12-22 15:16 | ED.GENADUL_ITS ---
Discharge Plan Disposition Patient Disposition: HOME Condition: Stable Discharge Details Clinical Impression: CHI (closed head injury) Primary Care Provider: Polo Pearce ED Provider: Magda Johnson Home Meds and New Rx's Prescriptions: Continued ropinirole 1 mg tablet 1 mg PO QHS RF: 0 trazodone 50 mg tablet 50 mg PO QHS PRNRF: 0 topiramate [Topamax] 100 mg tablet 100 mg PO QHS Qty: 90 RF: 3 Aimovig Autoinjector 140 mg/mL auto-injector 140 mg subcut QMONTH Qty: 1 RF: 11 fluticasone propionate [Flonase Allergy Relief] 9.9 ML spray,suspension 9.9 ml NS DAILY RF: 0 duloxetine [Cymbalta] 60 mg capsule,delayed release(DR/EC) 60 mg PO DAILY Qty: 30 RF: 2 gabapentin 600 mg tablet See Rx Instructions PO QHS Qty: 90 RF: 3 No Action budesonide-formoterol [Symbicort] 160-4.5 mcg/actuation HFA aerosol inhaler 2 puff inhalation BID RF: 0 prochlorperazine maleate 5 mg tablet See Rx Instructions PO TID PRN (Reason: nausea and vomiting) Qty: 30 RF: 3 diclofenac sodium [Voltaren] 1 % gel 4 g topical ONCE Qty: 150 RF: 0 Discharge Instructions Instructions: Head Injury (ED) Additional Instructions: CT of the head neck and thoracic spine are all within normal limit, no acute fr acture. You have some degenerative changes in the thoracic spine. Follow up with primary care provider in 3-5 days. Return to ED sooner if any worsening headache, nausea vomiting, slurred speech, confusion or concerns. Increase oral fluids. May alternate ice and heat. It is okay to continue with physical therapy. Referrals: Polo Pearce [Primary Care Provider] - Return if symptoms worsen Discharge Data Discharge Date/Time-TO BE ENTERED AT DEPARTURE: 12/22/20 17:01 Medical Decision Making <JOCY Ivory - Last Filed: 12/23/20 10:25> Given mechanism of injury and pain complaints I ordered CT head and cervical spine. Patient also has significant tenderness to her T1-3, parathoracic spine CT as patient will be receiving cervical spine CT She is neurovascularly intact As she is allergic to ibuprofen and Tylenol and she drove herself to the emergency room for assessment, I did not order any analgesia here, she will likely benefit from a muscle relaxant should she have negative appearing CT scan David transferred to Magda Johnson, nurse practitioner pending CT interpretation Cervical collar will need to be renewed pending results of CT scan Patient would likely benefit from muscle relaxant for discharge should she have negative CT finding Medical Records Medical records reviewed: Yes I reviewed the patient's medical records. <Magda Johnson - Last Filed: 12/22/20 16:45> Care assumed from provider (JOCY Ivroy) Please see her initial HPI, PE, and documentation. Discussed patient details and case and pending workup and disposition. Patient is hemodynamically stable, and alert and oriented. Pending CT head C and T-spine. Exam: CT Head Without Contrast Exam date and time: 12/22/2020 3:15 PM No relevant prior studies available. FINDINGS: Brain: Normal. No hemorrhage. Unremarkable white matter. No mass effect. Cerebral ventricles: No ventriculomegaly. Paranasal sinuses: Visualized sinuses are unremarkable. No fluid levels. Mastoid air cells: Visualized mastoid air cells are well aerated. Bones/joints: Unremarkable. No acute fracture. Soft tissues: Unremarkable. IMPRESSION: No acute intracranial abnormality. Imaging protocol: Computed tomography images of the cervical spine without contrast. COMPARISON: No relevant prior studies available. FINDINGS: Bones/joints: No acute fracture. Normal alignment. Discs/Spinal canal/Neural foramina: No significant disc protrusion. No severe spinal canal stenosis. No significant neural foraminal narrowing. Lungs: Lung apices are normal. Soft tissues: Unremarkable. IMPRESSION: No acute findings. Thank you for allowing us to participate in the care of your patient. Dictated and Authenticated by: Misbah Fernandez DO Imaging protocol: Computed tomography images of the thoracic spine without contrast. COMPARISON: CT HEAD CERVICAL SPINE WO 12/22/2020 3:44 PM FINDINGS: Vertebrae: Minimal anterior endplate osteophyte formation in the thoracic spine. Discs/Spinal canal/Neural foramina: No significant disc protrusion. No severe spinal canal stenosis. No significant neural foraminal narrowing. Other bones/joints: The bones are demineralized. No fracture is identified. Soft tissues: Unremarkable. IMPRESSION: The bones are demineralized and there is minimal degenerative change in the thoracic spine. No fracture identified Thank you for allowing us to participate in the care of your patient. Dictated and Authenticated by: Jeanne Dwyer MD 1955: C-collar removed from patient discussed CT results. Discussed red flags and strict return instructions, follow-up care. Patient verbalized understanding. HPI <JOCY Ivory - Last Filed: 12/23/20 10:25> General Mode of arrival: ambulatory . Date/Time Provider Initiated Documentation: 12/22/20 14:27 . Limitations to Documentation: no limitations . Information obtained by: patient . HPI Narrative: This 50-year-old female pre sents with report of fall. Fall was mechanical, she has a history of pain from a ladder falling and hitting her a few years ago and Wednesday fell back tripping smacking her head and neck on follow-up with and he will without loss of consciousness. This was Wednesday. She states she has pain in her head and neck. She denies any chest pain or shortness of breath. She denies any strength or sensation change. Denies any dizziness. Denies any history of coagulopathy. Denies any nausea or vomiting. States the headache is constant. Denies any changes in bowel or bladder, different from her typical migraine headaches reportedly. Related Data Home Medications Medication Instructions Recorded Confirmed fluticasone propionate [Flonase 9.9 ml NS DAILY 12/23/16 12/22/20 Allergy Relief] budesonide-formoterol HFA 160 2 puff INHALATION BID 06/12/20 12/22/20 mcg-4.5 mcg/actuation aerosol inhaler ropinirole 1 mg tablet 1 mg PO QHS 06/12/20 12/22/20 trazodone 50 mg tablet 50 mg PO QHS PRN 06/12/20 12/22/20 diclofenac sodium [Voltaren] 4 g TOPICAL ONCE #150 g 06/21/20 12/22/20 duloxetine 60 mg capsule,delayed 60 mg PO DAILY #30 mg 08/19/20 12/22/20 release topiramate 100 mg tablet 100 mg PO QHS #90 tab-cap 10/01/20 12/22/20 erenumab-aooe 140 mg/mL 140 mg SUBCUT QMONTH #1 ml 12/03/20 12/22/20 subcutaneous auto-injector prochlorperazine maleate 5 mg See Rx Instructions PO TID PRN #30 12/03/20 12/22/20 tablet tab gabapentin 600 mg tablet See Rx Instructions PO QHS #90 tab 12/19/20 12/22/20 Previous Rx's Medication Instructions Recorded diclofenac sodium [Voltaren] 4 g TOPICAL ONCE #150 g 06/21/20 duloxetine 60 mg capsule,delayed 60 mg PO DAILY #30 mg 08/19/20 release topiramate 100 mg tablet 100 mg PO QHS #90 tab-cap 10/01/20 erenumab-aooe 140 mg/mL 140 mg SUBCUT QMONTH #1 ml 12/03/20 subcutaneous auto-injector prochlorperazine maleate 5 mg See Rx Instructions PO TID PRN #30 12/03/20 tablet tab gabapentin 600 mg tablet See Rx Instructions PO QHS #90 tab 12/19/20 Allergies Allergy/AdvReac Type Severity Reaction Status Date / Time clobetasol AdvReac Intermediate Skin Rash Verified 12/22/20 14:41 environmental Allergy Mild Uncoded 12/22/20 14:41 General Stated Complaint: Trauma MIKAELA: 3 Review of Systems <JOCY Ivory - Last Filed: 12/23/20 10:25> All systems reviewed & are unremarkable except as noted in HPI and below PFSH <JOCY Ivory - Last Filed: 12/23/20 10:25> Medical History Asthma Depression Endometriosis Insomnia Migraine Migraine headache without aura Non-ST elevation HI (NSTEMI) MARYLOU (obstructive sleep apnea) Overweight Surgical History History of partial hysterectomy Family History Daughter Migraines Mother Hypertension Father Heart disease Social History Smoking/Tobacco Use Status: Never Smoking risk assessment performed?: Yes Alcohol Intake: never Drug use: Never Substance use type: does not use Do you feel safe at home: Yes Do you feel safe in your relationship?: Yes Female Reproductive History Menstrual Menopause type: surgical History History 2 Para 2 Hx # Term Pregnancies Multiple births Hx # Pregnancies Ectopic pregnancies AB induced Hx Number of Living Children AB spontaneous Exam <JOCY Ivory - Last Filed: 12/23/20 10:25> Const General: cooperative, comfortable and no acute distress HENMT Head: normal to inspection and no palpable skull fracture Mouth: oral mucosae normal Other: Uvula midline, oropharynx patent no hemotympanum Eyes Pupils: PERRL Neck Other: No visible sign of trauma, midline and paraspinal tenderness Resp Effort & Inspection: normal respiratory effort Cardio Rate: regular rate Other: Distal pulses intact GI Inspection: normal to inspection Other: No abdominal tenderness, no visible evidence of trauma Back/Spine/Pelvis Back: no CVA tenderness and CVA tenderness Other: Thoracic tenderness, lumbar spine tenderness Neuro General: patient alert, patient oriented x3 and CN's II-XI intact bilaterally Motor: strength 5/5 throughout Sensory Exam: no sensory deficits noted Other: gcs 15 Extrem Other: strenth and sensation intact Course <JOCY Ivory - Last Filed: 12/23/20 10:25> Vital Signs Vital signs: Vital Signs Temperature 36.6 C 12/22/20 14:36 Pulse 63 12/22/20 14:36 Respiratory Rate 16 12/22/20 14:36 Blood Pressure 132/79 12/22/20 14:36 Pulse Oximetry 96 12/22/20 14:36 Temperature 36.6 C 12/22/20 14:36 Temperature Source Skin 12/22/20 14:36 Pulse 63 12/22/20 14:36 Respiratory Rate 16 12/22/20 14:36 Respiratory Effort 12/22/20 14:50 Respiratory Depth Normal 12/22/20 14:50 Respiratory Pattern Normal 12/22/20 14:50 Blood Pressure 132/79 12/22/20 14:36 Blood Pressure Position Sitting 12/22/20 14:36 Pulse Oximetry 96 12/22/20 14:36 Oxygen Delivery Method Room Air 12/22/20 14:36 Oxygen Flow Rate 0 12/22/20 14:36 Pain Level 10 12/22/20 14:36 Sign Out <JOCY Ivory - Last Filed: 12/23/20 10:25> Sign Out Data: Sign Out Comment: pending ct head/cer/thor interpretation and dispo Last updated by Negar Martines PA at 12/22/20 16:08
--- NOTE | 2020-12-22 16:05 | DI.VRAD_ITS ---
PROCEDURE INFORMATION: Exam: CT Head Without Contrast Exam date and time: 12/22/2020 3:15 PM Age: 50 years old Clinical indication: Injury or trauma; Fall; Blunt trauma (contusions or hematomas) TECHNIQUE: Imaging protocol: Computed tomography of the head without contrast. COMPARISON: No relevant prior studies available. FINDINGS: Brain: Normal. No hemorrhage. Unremarkable white matter. No mass effect. Cerebral ventricles: No ventriculomegaly. Paranasal sinuses: Visualized sinuses are unremarkable. No fluid levels. Mastoid air cells: Visualized mastoid air cells are well aerated. Bones/joints: Unremarkable. No acute fracture. Soft tissues: Unremarkable. IMPRESSION: No acute intracranial abnormality. PROCEDURE INFORMATION: Exam: CT Cervical Spine Without Contrast Exam date and time: 12/22/2020 3:15 PM Age: 50 years old Clinical indication: Injury or trauma; Fall; Blunt trauma (contusions or hematomas) TECHNIQUE: Imaging protocol: Computed tomography images of the cervical spine without contrast. COMPARISON: No relevant prior studies available. FINDINGS: Bones/joints: No acute fracture. Normal alignment. Discs/Spinal canal/Neural foramina: No significant disc protrusion. No severe spinal canal stenosis. No significant neural foraminal narrowing. Lungs: Lung apices are normal. Soft tissues: Unremarkable. IMPRESSION: No acute findings. Dictated and Authenticated by: Misbah Fernandez MD. Ordering:JANIE Bills MD
--- NOTE | 2020-12-22 16:39 | DI.VRAD_ITS ---
PROCEDURE INFORMATION: Exam: CT Thoracic Spine Without Contrast Exam date and time: 12/22/2020 3:48 PM Age: 50 years old Clinical indication: Injury or trauma; Fall; Blunt trauma (contusions or hematomas) TECHNIQUE: Imaging protocol: Computed tomography images of the thoracic spine without contrast. COMPARISON: CT HEAD CERVICAL SPINE WO 12/22/2020 3:44 PM FINDINGS: Vertebrae: Minimal anterior endplate osteophyte formation in the thoracic spine. Discs/Spinal canal/Neural foramina: No significant disc protrusion. No severe spinal canal stenosis. No significant neural foraminal narrowing. Other bones/joints: The bones are demineralized. No fracture is identified. Soft tissues: Unremarkable. IMPRESSION: The bones are demineralized and there is minimal degenerative change in the thoracic spine. No fracture identified Dictated and Authenticated by: Jeanne Dwyer MD. Ordering:JANIE Bills MD
[2020-12-22 17:01] VITALS: BP 116/68; PULSE 58; RESP 16; TEMP 36.6; O2SAT 96
== END 2020-12-22 17:01 | disposition home or self-care (01) ==
PROVIDERS: Emergency Provider Registered Nurse Emergency; PCP Physician Assistant
DX: S09.8XXA Other specified injuries of head, initial encounter (principal); G44.319 Acute post-traumatic headache, not intractable; M54.2 Cervicalgia; M54.6 Pain in thoracic spine; W01.198A Fall on same level from slipping, tripping and stumbling with subsequent striking against other object, initial encounter
CPT/HCPCS: 99284; 70450; 72125; 72128

== ENCOUNTER 2021-01-06 14:48 | Outpatient (REF) | payer OTHER, SELFPAY ==
[2021-01-08 12:50] LABS: COVID-19 RT-PCR UVMMC Result Negative (Negative)
== END 2021-01-06 14:49 | disposition home or self-care (01) ==
LOC: LBN 14:48
PROVIDERS: PCP Physician Assistant; Visit Provider Physician Assistant
DX: Z20.822 Contact with and (suspected) exposure to COVID-19 (principal); J06.9 Acute upper respiratory infection, unspecified
CPT/HCPCS: U0003

== ENCOUNTER 2021-02-03 15:53 | Outpatient (CLI) | payer OTHER, SELFPAY ==
--- NOTE | 2021-02-03 15:15 | DI.RAD_ITS ---
Exam(s) XR WRIST LT COMP NAVICULAR EXAM: XR WRIST LT COMP NAVICULAR CLINICAL HISTORY: eval left wrist. TECHNIQUE: 2D digital imaging was performed. COMPARISON: No exams were available for comparison FINDINGS: There is no evidence of fracture nor dislocation. Navicular view unremarkable. No significant ulnar variance. Bone density normal. No osseous lesions. IMPRESSION: No significant radiographic findings. DATA REPOSITORY: RADIATION DOSE DELIVERED:
== END 2021-02-03 15:54 | disposition home or self-care (01) ==
LOC: DIORS 15:53
PROVIDERS: PCP Physician Assistant; Referring Provider Physician Assistant; Visit Provider Student in an Organized Health Care Education/Training Program
DX: M25.532 Pain in left wrist (principal)
CPT/HCPCS: 73110

== ENCOUNTER 2021-03-23 13:29 | Emergency (ER) | payer OTHER, SELFPAY ==
[2021-03-23] VITALS (15 sets, daily range): BP systolic 104–155; BP diastolic 58–89; PULSE 66–88; RESP 16–25; TEMP 36.4–36.6; O2SAT 95–99
--- NOTE | 2021-03-23 14:00 | DI.RAD_ITS ---
Exam(s) XR PORTABLE CHEST AP EXAM: XR PORTABLE CHEST AP CLINICAL HISTORY: cough, r/o acute disease. TECHNIQUE: 2D digital imaging was performed. COMPARISON: CT CT CHEST PE CTA from 08/28/2019 CR,XR XR PORTABLE CHEST AP from 08/28/2019 FINDINGS: Heart size is upper normal. The mediastinum is not widened. Lungs are clear. No infiltrates nor obvious pleural effusions. IMPRESSION: No acute pulmonary findings on this single AP portable view of the chest. DATA REPOSITORY: RADIATION DOSE DELIVERED: All CT scans at this facility use at least one of these dose optimization techniques: automated exposure control; mA and/or kV adjustment per patient size (includes targeted e xams where dose is matched to clinical indication); or iterative reconstruction.
--- NOTE | 2021-03-23 15:13 | ED.GENADUL_ITS ---
Discharge Plan Disposition Patient Disposition: HOME Condition: Improving Discharge Details Clinical Impression: COVID-19 Primary Care Provider: Polo Pearce ED Provider: Candelaria Quigley Home Meds and New Rx's Prescriptions: Continued ropinirole 1 mg tablet 1 mg PO DIRECTED RF: 0 trazodone 50 mg tablet 50 mg PO QHS PRNRF: 0 Aimovig Autoinjector 140 mg/mL auto-injector 140 mg subcut QMONTH Qty: 1 RF: 11 fluticasone propionate [Flonase Allergy Relief] 9.9 ML spray,suspension 9.9 ml NS DAILY RF: 0 duloxetine [Cymbalta] 60 mg capsule,delayed release(DR/EC) 60 mg PO DAILY Qty: 30 RF: 2 gabapentin 600 mg tablet See Rx Instructions PO QHS Qty: 90 RF: 3 topiramate [Topamax] 100 mg tablet 100 mg PO QHS Qty: 90 RF: 3 diclofenac sodium [Voltaren] 1 % gel 4 g topical ONCE Qty: 150 RF: 0 Dulera 200-5 mcg/actuation HFA aerosol inhaler INHALATION PRN PRNRF: 0 naproxen sodium [Aleve] 220 mg Capsule 440 mg PO PRN PRNRF: 0 Discharge Instructions Instructions: COVID-19 (Coronavirus Disease 2019) (ED) Additional Instructions: Drink plenty of fluids and get plenty of rest. You can use your albuterol inhaler that you have at home as needed and directed for cough or shortness of breath. You can continue to take your naproxen that you have at home as needed and directed for pain or fever. Follow-up with your primary care doctor in 1 week. Return to the emergency department with any worsening or new concerning symptoms such as persistent vomiting, worsening shortness of breath or any other concerns. Discharge Data Discharge Physician: Candelaria Quigley Medical Decision Making 1500 -- 51-year-old female with a history of obesity, asthma, depression, migraine, sleep apnea presents for headache, body, fatigue, cough, shortness of breath and diarrhea for the past 2 days. She had 2 positive at-home COVID test yesterday. Her blood pressure is hypertensive, otherwise vitals within normal limits. Her oxygen saturation is 99% on room air and she is speaking in full sentences without signs of respiratory distress. Lungs clear bilaterally. Portable obtained and noted to be read as potential viral pneumonia per virtual radiology. Our in-house radiologist read the x-ray as unremarkable and negative for acute disease. As patient is obese and has a history of asthma but not requiring supplemental oxygen, I feel that she meets criteria for monoclonal antibody infusion to decrease risk of severe disease, hospitalization or . Will place an IV, give bolus IV fluids and a dose of IV Toradol. Patient states that she cannot take ibuprofen but can take naproxen and is agreeable to Toradol. She states she cannot take Tylenol. Do not see an indication for lab work. We will also give a DuoNeb for symptomatic shortness of breath. A FLUVID obtained and notes that she is COVID-positive, negative for flu and RSV. Monoclonal antibody infusion ordered. 1999 -- patient tolerated patient reassessed and she feels much better. Headache and shortness of breath significantly improved and she feels comfortable going home. She was observed for 1 hour after her antibody infusion and no complications. Advised to increase fluids, rest and to follow-up with her primary care doctor for reevaluation as needed. Usual and customary return precautions given prior to discharge. Medical Records Medical records reviewed: Yes I reviewed the patient's medical records. Imaging Data Radiologic Study: Radiologist's impression: XR PORTABLE CHEST AP CLINICAL HISTORY: cough, r/o acute disease. TECHNIQUE: 2D digital imaging was performed. COMPARISON: CT CT CHEST PE CTA from 08/28/2019 CR,XR XR PORTABLE CHEST AP from 08/28/2019 FINDINGS: Heart size is upper normal. The mediastinum is not widened. Lungs are clear. No infiltrates nor obvious pleural effusions. IMPRESSION: No acute pulmonary findings on this single AP portable view of the chest. Lab Data Lab results reviewed: Yes I reviewed the patient's lab results. HPI General Mode of arrival: ambulatory . Date/Time Provider Initiated Documentation: 03/23/21 13:40 . Limitations to Documentation: no limitations . Information obtained by: patient . HPI Narrative: Patient is a 51-year-old female with a history of obesity, asthma, migraine, depression, sleep apnea presents with 2 positive at-home COVID test yesterday with headache, cough, shortness of breath, body aches, diarrhea. Patient states her symptoms for started 2 days ago with headache, body aches and diarrhea. She states today she developed a sensation of fatigue and difficulty catching a deep breath mainly with ambulation. She denies any known fever or vomiting. She states she was mainly concerned for her breathing secondary to her history of asthma. She states she is fully vaccinated including a booster for COVID and she is unsure of how she may have contracted COVID. Related Data Home Medications Medication Instructions Recorded Confirmed fluticasone propionate [Flonase 9.9 ml NS DAILY 12/23/16 03/23/21 Allergy Relief] ropinirole 1 mg tablet 1 mg PO DIRECTED 06/12/20 03/23/21 trazodone 50 mg tablet 50 mg PO QHS PRN 06/12/20 03/23/21 diclofenac sodium [Voltaren] 4 g TOPICAL ONCE #150 g 06/21/20 02/04/21 duloxetine 60 mg capsule,delayed 60 mg PO DAILY #30 mg 08/19/20 03/23/21 release erenumab-aooe 140 mg/mL 140 mg SUBCUT QMONTH #1 ml 12/03/20 03/23/21 subcutaneous auto-injector gabapentin 600 mg tablet See Rx Instructions PO QHS #90 tab 12/19/20 03/23/21 topiramate 100 mg tablet 100 mg PO QHS #90 tab-cap 01/09/21 03/23/21 Dulera INHALATION PRN PRN 03/23/21 naproxen sodium [Aleve] 440 mg PO PRN PRN 03/23/21 03/23/21 Previous Rx's Medication Instructions Recorded diclofenac sodium [Voltaren] 4 g TOPICAL ONCE #150 g 06/21/20 duloxetine 60 mg capsule,delayed 60 mg PO DAILY #30 mg 08/19/20 release erenumab-aooe 140 mg/mL 140 mg SUBCUT QMONTH #1 ml 12/03/20 subcutaneous auto-injector gabapentin 600 mg tablet See Rx Instructions PO QHS #90 tab 12/19/20 topiramate 100 mg tablet 100 mg PO QHS #90 tab-cap 01/09/21 Allergies Allergy/AdvReac Type Severity Reaction Status Date / Time acetaminophen [From Tylenol] AdvReac Intermediate Unverified 03/23/21 13:56 clobetasol AdvReac Intermediate Skin Rash Verified 02/03/21 15:00 ibuprofen AdvReac Unverified 03/23/21 13:56 environmental Allergy Mild Uncoded 02/03/21 15:00 General Stated Complaint: Headache MIKAELA: 3 Review of Systems All systems reviewed & are unremarkable except as noted in HPI and below Constitutional Constitutional: Reports as per HPI, Reports body ache(s), Denies chills, Reports fatigue, Denies fever(s), Reports headache(s), Reports lethargy and Reports malaise Eyes Eyes: Denies blurry vision ENT Ears, Nose, Mouth, and Throat: Denies dizziness, Reports headache(s), Denies sore throat and Denies throat swelling Cardiovascular Cardiovascular: Denies chest pain and Reports dyspnea Respiratory Respiratory: Reports cough and Reports dyspnea Gastrointestinal Gastrointestinal: Denies abdominal pain, Reports diarrhea and Denies vomiting Genitourinary Genitourinary: Denies hematuria and Denies dysuria Musculoskeletal Musculoskeletal: Denies back pain and Denies numbness Integumentary/Breasts Skin/Breast: Denies lesions and Denies rash Neurologic Neurologic: Denies dizziness, Reports headache(s), Denies localized weakness and Denies numbness Endocrine Endocrine: Reports fatigue Allergic/Immunologic Allergic/Immunologic: Denies throat swelling [facility] All Active Problems (Updated 03/23/21 @ 19:40 by Candelaria Quigley DO) COVID-19 (Acute) Left lateral epicondylitis (Acute) Arthritis of carpometacarpal (CMC) joint of left thumb (Acute) Left wrist pain (Acute) CHI (closed head injury) (Acute) Tendinitis (Acute) Non-ST elevation TN (NSTEMI) (Acute) COVID-19 ruled out (Acute) Acute bronchitis (Acute) Chest pain (Acute) Migraine headache without aura (Acute) Lichen sclerosus (Acute) Migraine with aura and without status migrainosus, not intractable (Acute 02/24/16) Active Problem List Left wrist pain (Acute) CHI (closed head injury) (Acute) Tendinitis (Acute) Non-ST elevation TN (NSTEMI) (Acute) COVID-19 ruled out (Acute) Acute bronchitis (Acute) Chest pain (Acute) Migraine headache without aura (Acute) Lichen sclerosus (Acute) Migraine with aura and without status migrainosus, not intractable (Acute 02/24/16) Medical History Asthma Depression Endometriosis Insomnia Migraine MARYLOU (obstructive sleep apnea) Overweight Surgical History History of partial hysterectomy Family History Daughter Migraines Mother Hypertension Father Heart disease Social History Smoking/Tobacco Use Status: Never Smoking risk assessment performed?: Yes Alcohol Intake: never Drug use: Never Substance use type: does not use Do you feel safe at home: Yes Do you feel safe in your relationship?: Yes Female Reproductive History Menstrual Menopause type: surgical History History 2 Para 2 Hx # Term Pregnancies Multiple births Hx # Pregnancies Ectopic pregnancies AB induced Hx Number of Living Children AB spontaneous Exam Const General: cooperative, healthy appearing and no acute distress HENMT Head: normal to inspection Face and sinus: normal facial exam Eyes General: appearance normal, both eyes and all related structures Pupils: PERRL EOM: EOM intact bilaterally Neck Neck: normal visual inspection and No submandibular swelling Lymphatic: no lymphadenopathy noted Chest Chest: normal inspection of the chest and no tenderness Resp Effort & Inspection: normal respiratory effort and able to speak in complete sentences Auscultation: clear to auscultation bilaterally Cardio Rate: regular rate Rhythm: regular rhythm GI Inspection: normal to inspection Palpation: soft, not firm, not rigid and nontender Auscultation: normal bowel sounds Skin General skin exam: no rashes or lesions noted Neuro General: patient alert, patient awake and patient oriented x3 Cognition: normal cognition Speech: speech normal Motor: muscle tone normal throughout Sensory Exam: no sensory deficits noted Extrem General: normal to inspection, full ROM, capillary refill normal, no calf tenderness bilaterally and no edema Psych Appearance: grossly normal Mental Status: mental status grossly normal Speech and Movement: speech and movement normal Affect: normal affect Course Vital Signs Vital signs: Vital Signs Temperature 97.5 F L 03/23/21 13:49 Pulse 70 03/23/21 13:49 Respiratory Rate 16 03/23/21 13:49 Blood Pressure 155/80 H 03/23/21 13:49 Pulse Oximetry 99 03/23/21 13:49 Temperature 97.5 F L 03/23/21 13:49 Temperature Source Temporal Artery Scan 03/23/21 13:49 Pulse 70 03/23/21 13:49 Respiratory Rate 16 03/23/21 13:49 Blood Pressure 155/80 H 03/23/21 13:49 Blood Pressure Position Sitting 03/23/21 13:49 Pulse Oximetry 99 03/23/21 13:49 Oxygen Delivery Method Room Air 03/23/21 13:49 Oxygen Flow Rate 0 03/23/21 13:49 Pain Level 10 03/23/21 13:49
--- NOTE | 2021-03-23 15:27 | DI.VRAD_ITS ---
PROCEDURE INFORMATION: Exam: XR Chest Exam date and time: 03/23/2021 2:09 PM Age: 51 years old Clinical indication: Cough TECHNIQUE: Imaging protocol: XR of the chest. Views: 1 view. Total images: 1 COMPARISON: CT CHEST WO 04/26/2020 8:11 AM FINDINGS: Lungs: There are patchy peripheral airspace opacities. Pleural spaces: No pleural effusion. No pneumothorax. Heart/Mediastinum: Heart size is normal for technique. Bones/joints: No acute bone abnormality. IMPRESSION: Study is positive for airspace disease. Although nonspecific, findings may represent pneumonia including viral pneumonia. Dictated and Authenticated by: Víctor Borden MD. Ordering:DENNY Gaona MD
[2021-03-23 15:51] LABS: Source Nasal/Nares
[2021-03-23] MEDS: Normal Saline 1,000 ML 1000 ML IV (16:01)
[2021-03-23] MEDS: Ketorolac 30 MG/ML VIAL IVP (16:18)
[2021-03-23] MEDS: Albuterol/Ipratropium 3 ML UPD VIAL UPD (16:18)
[2021-03-23] MEDS: Dexamethasone 10 MG/ML VIAL IVP (16:19)
[2021-03-23 16:34] LABS: Influenza A PCR Negative (Negative); Influenza B PCR Negative (Negative); RSV PCR Negative (Negative)
[2021-03-23 16:36] LABS: COVID-19 PCR POSITIVE (Negative)
[2021-03-23] MEDS: Normal Saline Flush 10 ML SYR IVP (18:08)
[2021-03-23] MEDS: Normal Saline 100 ML 200 ML (18:09)
== END 2021-03-23 20:08 | disposition home or self-care (01) ==
PROVIDERS: Emergency Provider Physician Assistant; PCP Physician Assistant
DX: U07.1 COVID-19 (principal); R53.83 Other fatigue
CPT/HCPCS: 36415; 87637; 94640; 96361; 96365; 96375; 99284; Q0047; 71045; J1100; J1885; J7620

== ENCOUNTER 2021-04-23 15:07 | Outpatient (REF) | payer OTHER, SELFPAY ==
[2021-04-23 19:03] LABS: HCT 41.4 % (36.0-46.0); HGB 13.5 g/dL (11.2-15.7); MCH 30.7 pg (27.0-33.0); MCHC 32.6 % (32.0-36.0); MCV 94.1 fL (80-95); MPV 11.9 fL (8.0-11.0); Platelet Count 256 10^3/uL (130-400); RDW 13.5 % (11.7-14.6); RDW-SD 47.1 fL; WBC 6.41 10^3/uL (4.4-10.8)
== END 2021-04-23 15:08 | disposition home or self-care (01) ==
LOC: NCHCN 15:07
PROVIDERS: PCP Physician Assistant; Visit Provider Physician Assistant
DX: R05.8 Other specified cough (principal)
CPT/HCPCS: 85027

== ENCOUNTER 2021-05-02 02:29 | Outpatient (CLI) | payer OTHER, SELFPAY ==
--- NOTE | 2021-05-02 08:30 | DI.RAD_ITS ---
Exam(s) XR CHEST 2V PA LATERAL EXAM: XR CHEST 2V PA LATERAL CLINICAL HISTORY: COUGH, R05.8. TECHNIQUE: 2D digital imaging was performed. COMPARISON: No exams were available for comparison FINDINGS: Heart size unchanged. Mediastinum is not widened. The right lung is clear. There is subtle suggest ion of possible patchy infiltrate in the left upper lobe or superior segment left lower lobe. No pleural effusions. No pulmonary edema. No pneumothorax. IMPRESSION: Subtle possible infiltrate in the left upper lobe. Appropriate follow-up recommended. DATA REPOSITORY: RADIATION DOSE DELIVERED:
== END 2021-05-02 02:49 ==
PROVIDERS: PCP Physician Assistant; Visit Provider Physician Assistant
DX: R05.8 Other specified cough (principal); R91.8 Other nonspecific abnormal finding of lung field
CPT/HCPCS: 71046

== ENCOUNTER 2021-05-27 11:59 | Outpatient (CLI) | payer OTHER, SELFPAY ==
[2021-05-27] MEDS: Omnipaque 350 MG/ML 50 ML BTL PO (11:52)
[2021-05-27] MEDS: Breeza Beverage 473 ML BTL PO ×2 (11:52→11:53)
[2021-05-27] MEDS: Omnipaque 350 MG/ML 100 ML BTL IJ (13:46)
--- NOTE | 2021-05-27 13:48 | DI.CT_ITS ---
Exam(s) CT ABDOMEN PELVIS W EXAM: CT ABDOMEN PELVIS W CLINICAL HISTORY: ABD PAIN, R10.9. TECHNIQUE: Imaging Protocol: Axial computed tomography images with coronal and sagittal reformatted images were created and reviewed CONTRAST MATERIAL: Intravenous: Omnipaque 350 Contrast volume:100 ml Oral: yes / COMPARISON: CT CT CHEST PE CTA from 08/28/2019 CR XR CHEST 2V PA LATERAL from 05/02/2021 FINDINGS: ABDOMEN: Lung Bases: Pneumonia left lower lobe. No effusions. Heart appears enlarged. Small hiatal hernia. Liver: Appearance of passive venous congestion.. No measurable mass. Gallbladder and biliary tract: No radiodense calculus or dilation. Pancreas: Normal density, no abnormal calcifications or inflammatory process. Spleen: Normal. Kidneys: Normal size, contour and axis. No radiodense stones or obstructive uropathy. No masses seen. Adrenal glands: No masses seen. Abdominal Aorta: Abdominal portion non-dilated. Moderate atherosclerotic changes. PELVIS: Bladder: No gross wall thickening. No calculi.No focal mass. Bowel: Cecum projects toward the left upper quadrant, consistent with redundant mesentery. No obstru ction or bowel wall thickening. Appendix normal. Peritoneal cavity: No ascites, collection or mesenteric inflammatory response. Bones: Within normal limits for age. Reproductive organs: Status post hysterectomy. Ovaries within normal limits. Lymph nodes: Unremarkable. Impression: Left lower lobe pneumonia. No acute abnormality in the abdomen or pelvis. RADIATION DOSE DELIVERED: 1,188.76mGy.cm Total DLP DATA REPOSITORY: All CT scans at this facility are submitted to the National Radiology Data Registry (NRDR) Dose Index Registry (DIR) with the [employer] ([employer]). RADIATION OPTIMIZATION: All CT scans at this facility use at least one of these dose optimization te chniques: automated exposure control; mA and/or kV adjustment per patient size (includes targeted exa ms where dose is matched to clinical indication); or iterative reconstruction.
== END 2021-05-27 12:19 ==
LOC: DI 12:00
PROVIDERS: PCP Physician Assistant; Visit Provider Physician Assistant
DX: R10.9 Unspecified abdominal pain (principal); J18.9 Pneumonia, unspecified organism; K44.9 Diaphragmatic hernia without obstruction or gangrene; Z90.710 Acquired absence of both cervix and uterus
CPT/HCPCS: 74177; J3490; Q9967

== ENCOUNTER 2021-05-27 16:43 | Outpatient (REF) | payer OTHER, SELFPAY ==
[2021-05-27 13:35] LABS: HCT 39.8 % (36.0-46.0); HGB 12.8 g/dL (11.2-15.7); MCH 30.3 pg (27.0-33.0); MCHC 32.2 % (32.0-36.0); MCV 94.1 fL (80-95); MPV 11.7 fL (8.0-11.0); Platelet Count 320 10^3/uL (130-400); RBC 4.23 10^6/uL (3.93-5.22); RDW 13.3 % (11.7-14.6); RDW-SD 45.7 fL; WBC 11.52 10^3/uL (4.4-10.8)
[2021-05-27 13:44] LABS: ALT 32 U/L (14-59); AST 28 U/L (15-37); Albumin 3.3 g/dL (3.4-5.0); Alkaline Phosphatase 80 U/L (46-116); Anion Gap 14.6 mmol/L (3-11); BUN 14 mg/dL (7-18); Bilirubin, Total 0.5 mg/dL (0.2-1.0); CO2 18.4 mmol/L (21.0-32.0); Calcium 8.5 mg/dL (8.5-10.1); Chloride 103 mmol/L (98-107); Estimated GFR 58.22 (mL/min/1.73m2); Glucose 111 mg/dL (74-106); Potassium 4.2 mmol/L (3.5-5.1); Sodium 136 mmol/L (136-145); Total Protein 7.4 g/dL (6.4-8.2)
== END 2021-05-27 16:44 | disposition home or self-care (01) ==
LOC: NCHCN 16:43
PROVIDERS: PCP Physician Assistant; Visit Provider Physician Assistant
DX: R10.9 Unspecified abdominal pain (principal)
CPT/HCPCS: 80053; 85027

== ENCOUNTER 2021-06-06 13:32 | Inpatient (IN) | payer OTHER, SELFPAY ==
[2021-06-06] VITALS (35 sets, daily range): BP systolic 116–156; BP diastolic 73–96; PULSE 51–74; RESP 11–24; TEMP 36–36.2; O2SAT 94–100
--- NOTE | 2021-06-06 14:00 | DI.US_ITS ---
Exam(s) US ABDOMEN EXAM: US ABDOMEN CLINICAL HISTORY: RUQ pain nausea, concern for biliary pathology TECHNIQUE: Ultrasound abdomen performed using standard protocol. COMPARISON: No exams were available for comparison FINDINGS: ABDOMINAL AORTA AND IVC: Visualized portions normal caliber. PANCREAS: Normal where visualized. LIVER: Normal. Hepatopedal flow in the Portal Vein. GALLBLADDER:No evidence of cholelithiasis. No evidence of wall thickening. No pericholecystic fluid i dentified. BILIARY SYSTEM: Common bile duct measures < 7 mm. No intrahepatic biliary ductal dilation. BOSS'S SIGN: Negative. KIDNEYS: Kidneys are symmetric in size. No evidence of renal calculi. No evidence of hydronephrosis. No renal mass or cyst identified. SPLEEN: Not enlarged. ASCITES: None seen. IMPRESSION: Normal sonographic appearance of the upper abdomen. DATA REPOSITORY:
--- NOTE | 2021-06-06 14:05 | DI.RAD_ITS ---
Exam(s) XR CHEST 1V IN DI DEPT EXAM: XR CHEST 1V IN DI DEPT CLINICAL HISTORY: shortness of breath, recent L lower pneumonia TECHNIQUE: 2D digital imaging was performed of the chest. One image was obtained. An AP view was ob tained. COMPARISON: CR XR CHEST 2V PA LATERAL from 05/02/2021 FINDINGS: MEDIASTINUM: Normal. HEART: Normal. PULMONARY VASCULATURE: Normal. LUNGS: Clear. PLEURAL SPACE: No pleural effusion or pneumothorax. BONE:Within normal limits for the patient's age. OTHER FINDINGS:Normal. IMPRESSION: No acute pulmonary findings. DATA REPOSITORY: RADIATION DOSE DELIVERED:
--- NOTE | 2021-06-06 14:12 | W.ED.GENAD ---
Discharge Plan Disposition Patient Disposition: [facility] INPATIENT Condition: Serious Discharge Details Clinical Impression: Acute non-ST elevation myocardial infarction (NSTEMI), Left lower lobe pneumonia, Right upper quadrant abdominal pain Primary Care Provider: Polo Pearce ED Provider: Stuart Iyer Home Meds and New Rx's Prescriptions: No Action ropinirole 1 mg tablet 1 mg PO DIRECTED 0RF Rx Instructions: administer 1-3 hours before bedtime, and one at bed time trazodone 50 mg tablet 50 mg PO QHS PRN0RF Rx Instructions: 1-2 tabs qhs Aimovig Autoinjector 140 mg/mL auto-injector 140 mg subcut QMONTH Qty: 1 11RF fluticasone propionate [Flonase Allergy Relief] 9.9 ML spray,suspension 9.9 ml NS DAILY 0RF duloxetine [Cymbalta] 60 mg capsule,delayed release(DR/EC) 60 mg PO DAILY Qty: 30 2RF gabapentin 600 mg tablet See Rx Instructions PO QHS Qty: 90 3RF Rx Instructions: Take 300mg HS x 1week, then 600mg HS PO every day at bedtime; topiramate [Topamax] 100 mg tablet 100 mg PO QHS Qty: 90 3RF albuterol sulfate 90 mcg/actuation HFA aerosol inhaler 2 puff inhalation 6XD 0RF loratadine [Allergy Relief (loratadine)] 10 mg tablet 10 mg PO DAILY 0RF diclofenac sodium [Voltaren] 1 % gel 4 g topical ONCE Qty: 150 0RF Rx Instructions: apply to single knee, ankle, foot; for foot includes sole/toes/top of foot Dulera 200-5 mcg/actuation HFA aerosol inhaler INHALATION PRN PRN0RF Label Comments: Inhale 2 inhalations by mouth twice daily naproxen sodium [Aleve] 220 mg Capsule 440 mg PO PRN PRN0RF doxycycline hyclate 100 mg Tablet 100 mg PO BID 0RF Medical Decision Making 51-year-old female history of obesity endometriosis hysterectomy, recent diagnosis of left lower lobe pneumonia completing antibiotics presents with epigastric discomfort nausea heartburn sensation trouble breathing over the past several weeks, no peripheral edema patient is normoxic speaking full sentences clear lungs, subjective epigastric and right upper quadrant discomfort without guarding rebounding distention or organomegaly. Consider long-haul Covid symptomatology versus biliary colic versus less likely cholecystitis versus gastritis versus pancreatitis versus persistent pneumonia versus less likely ACS versus less likely PE. Screening labs chest x-ray ultrasound right upper quadrant fluids and Zofran 15: 49 patient resting comfortably mild persistent chest pain, elevated troponin and BNP, bedside ultrasound showing bilateral B-lines no appreciable pleural effusion, EKG showing sinus bradycardia with ST segment depressions inferior laterally, consider ACS versus new CHF versus must consider PE given sharp chest pain shortness of breath and new CHF symptomatology patient also endorsed prior left leg pain and swelling, no appreciable peripheral edema at this time, will proceed with CTA chest to assess for PE and lower extremity PT study. Admission likely consider admission versus transfer pending repeat troponin and imaging 1749 --accepted signout of this patient from Dr. Ovidio Moreland, please see his note above regarding initial ED presentation course. CT of the chest was interpreted by radiology: IMPRESSION: 1. No evidence of pulmonary embolism or thoracic aortic aneurysm. 2. Left lower lobe infiltrate. 3. Results of this exam have been verbally communicated with provider.? Ultrasound of the left lower extremity was interpreted by radiology: No DVT. Labs reviewed and delta troponin remains elevated at 411. BNP elevated at 4000. EKG was reviewed and does have ST depressions inferior lateral -I reviewed prior medical record including EKG from 08/29/2019 which revealST depressions in similar distribution. Plan to initiate treatment with heparin IV bolus and infusion. Patient has received aspirin. I reassessed patient who notes she continues to have some right upper quadrant abdominal discomfort but does not currently have retrosternal chest pain. She does note that with exertion she experiences chest pain. I have called [facility] transfer center to request transfer to cardiology for NSTEMI. 1800 --I spoke with Dr. Titus, [facility] infection preventionist, discussed ED presentation course including diagnostic, he agrees with starting heparin, recommend starting nitro if chest pain persist, also recommend diuresis as needed. Dr. Hallman will accept patient in transfer. Transfer center notes bed likely not available till tomorrow. Plan to admit here until able to transfer. 1849 --I spoke with Dr. Gaines, on-call hospitalist, discussed ED presentation course, he will admit the patient. Care transition to hospitalist service. I will order Plavix 300 mg p.o. as discussed. HPI General Date/Time Provider Initiated Documentation: 06/06/21 13:52. HPI Narrative: 51-year-old female history of Covid, migraines, obesity, endometriosis status post hysterectomy, presents with abdominal pain epigastric and right upper quadrant associated with postprandial discomfort and bloating some nausea without vomiting, intermittent chest discomfort and persistent shortness of breath for several weeks, was diagnosed with left lower lobe pneumonia is completing her course of antibiotics does not feel as if she is getting better. Denies exogenous estrogen use leg swelling or pain or history of thromboembolic phenomena Related Data Home Medications Medication Instructions Recorded Confirmed fluticasone propionate 50 9.9 ml NS DAILY 12/23/16 06/06/21 mcg/actuation nasal spray,suspension (Flonase Allergy Relief) ropinirole 1 mg tablet 1 mg PO DIRECTED 06/12/20 06/06/21 trazodone 50 mg tablet 50 mg PO QHS PRN 06/12/20 06/06/21 diclofenac sodium 1 % topical gel 4 g TOPICAL ONCE #150 g 06/21/20 06/06/21 (Voltaren) duloxetine 60 mg capsule,delayed 60 mg PO DAILY #30 mg 08/19/20 06/06/21 release (Cymbalta) erenumab-aooe 140 mg/mL 140 mg SUBCUT QMONTH #1 ml 12/03/20 06/06/21 subcutaneous auto-injector (Aimovig Autoinjector) gabapentin 600 mg tablet See Rx Instructions PO QHS #90 tab 12/19/20 06/06/21 topiramate 100 mg tablet (Topamax) 100 mg PO QHS #90 tab-cap 01/09/21 06/06/21 mometasone-formoterol HFA 200 INHALATION PRN PRN 03/23/21 04/08/21 mcg-5 mcg/actuation aerosol inhaler (Dulera) naproxen sodium 220 mg capsule 440 mg PO PRN PRN 03/23/21 06/06/21 (Aleve) albuterol sulfate 90 mcg/actuation 2 puff INHALATION 6XD 05/30/21 06/06/21 aerosol inhaler loratadine 10 mg tablet (Allergy 10 mg PO DAILY 05/30/21 06/06/21 Relief (loratadine)) doxycycline hyclate 100 mg tablet 100 mg PO BID 06/06/21 06/06/21 Previous Rx's Medication Instructions Recorded diclofenac sodium 1 % topical gel 4 g TOPICAL ONCE #150 g 06/21/20 (Voltaren) duloxetine 60 mg capsule,delayed 60 mg PO DAILY #30 mg 08/19/20 release (Cymbalta) erenumab-aooe 140 mg/mL 140 mg SUBCUT QMONTH #1 ml 12/03/20 subcutaneous auto-injector (Aimovig Autoinjector) gabapentin 600 mg tablet See Rx Instructions PO QHS #90 tab 12/19/20 topiramate 100 mg tablet (Topamax) 100 mg PO QHS #90 tab-cap 01/09/21 Allergies Allergy/AdvReac Type Severity Reaction Status Date / Time acetaminophen [From Tylenol] AdvReac Intermediate Unverified 06/06/21 13:44 clobetasol AdvReac Intermediate Skin Rash Verified 06/06/21 13:44 codeine AdvReac Mild Verified 06/06/21 13:44 ibuprofen AdvReac Unverified 06/06/21 13:44 environmental Allergy Mild Uncoded 06/06/21 13:44 General Stated Complaint: [facility]Medical MIKAELA: 3 Review of Systems Narrative: Review of Systems Constitutional: negative Eyes: negative ENT: negative Cardiovascular: negative Respiratory: Shortness of breath Gastrointestinal: Abdominal pain, nausea : negative Musculoskeletal: negative Skin: negative Neurologic: negative Psych: negative PFSH All Active Problems (Updated 06/06/21 @ 19:11 by Stuart Iyer MD) Acute non-ST elevation myocardial infarction (NSTEMI) (Acute) Left lower lobe pneumonia (Acute) Right upper quadrant abdominal pain (Acute) Restless legs syndrome (Acute) Rhinitis, nonallergic, chronic (Acute) COVID-19 (Acute) Left lateral epicondylitis (Acute) Arthritis of carpometacarpal (CMC) joint of left thumb (Acute) Left wrist pain (Acute) CHI (closed head injury) (Acute) Tendinitis (Acute) Non-ST elevation AL (NSTEMI) (Acute) COVID-19 ruled out (Acute) Acute bronchitis (Acute) Chest pain (Acute) Migraine headache without aura (Acute) Lichen sclerosus (Acute) Migraine with aura and without status migrainosus, not intractable (Acute 02/24/16) Medical History (Updated 06/06/21 @ 19:11 by Stuart Iyer MD) Asthma Chronic heart failure with preserved ejection fraction Depression Endometriosis Insomnia Migraine MARYLOU (obstructive sleep apnea) Overweight Surgical History History of partial hysterectomy Family History Daughter Migraines Mother Hypertension Father Heart disease Social History Smoking/Tobacco Use Status: Never Smoking risk assessment performed?: Yes Alcohol Intake: never Drug use: Never Substance use type: does not use Do you feel safe at home: Yes Do you feel safe in your relationship?: Yes Female Reproductive History Menstrual Menopause type: surgical History History 2 Para 2 Hx # Term Pregnancies Multiple births Hx # Pregnancies Ectopic pregnancies AB induced Hx Number of Living Children AB spontaneous Exam Narrative Exam Narrative: Physical Examination General: alert, awake, cooperative, resting comfortably, no acute distress HEENT: normocephalic, atraumatic; PERRL, EOM intact, conjunctiva normal; no nasal discharge; moist mucous membranes, oral and pharyngeal mucosa normal, tolerating secretions Neck: supple, trachea midline; full ROM Chest: normal to inspection Respiratory: normal respiratory effort, speaking in full sentences, clear to auscultation, no wheezing, rales or rhonchi Cardiac: regular rate, regular rhythm, S1S2 intact, no murmurs rubs or gallops GI: abdomen soft, non-tender, non-distended; no palpable mass or hepatosplenomegaly, no guarding or rebounding pacifically in the right upper quadrant epigastrium although does endorse subjective discomfort in these regions Skin: no lesions, rashes or trauma appreciated Neuro: AAOx3, normal speech, moving all extremities Extremities: No peripheral edema Psych: Appropriate mood and affect Course Vital Signs Vital signs: Vital Signs Temperature 36 C L 06/06/21 13:39 Pulse 74 06/06/21 13:39 Respiratory Rate 16 06/06/21 13:39 Blood Pressure 149/96 H 06/06/21 13:39 Pulse Oximetry 97 06/06/21 13:39 Temperature 36 C L 06/06/21 13:39 Temperature Source Skin 06/06/21 13:39 Pulse 74 06/06/21 13:39 Respiratory Rate 16 06/06/21 13:39 Respiratory Effort 06/06/21 13:39 Blood Pressure 149/96 H 06/06/21 13:39 Blood Pressure Position Sitting 06/06/21 13:39 Pulse Oximetry 97 06/06/21 13:39 Oxygen Delivery Method Room Air 06/06/21 13:39 Oxygen Flow Rate 0 06/06/21 13:39 Pain Level 9 06/06/21 13:39 Critical Care Time Critical Care Time Critical Care Time: Yes Total Critical Care Time: 40 Attestation: I spent greater than 40 minutes addressing this patient's immediate life threats. Please see MDM section of note. This time was spent engaged in work directly related to the patient's care, exclusive of separate procedures, and failure to initiate these interventions would have likely resulted in clinically significant or life threatening deterioration in the patient's condition. Sign Out Sign Out Data: Sign Out Comment: concern for new CHF in setting of ACS; pending CT PE, US lower ext, and repeat trop for admission v transfer Last updated by Antonio Sanchez MD at 06/06/21 16:14
[2021-06-06] MEDS: Normal Saline 500 ML 1000 ML IV (14:27)
[2021-06-06] MEDS: Ondansetron 4 MG/2 ML VIAL IVP (14:27)
[2021-06-06 14:35] LABS: Abs Immature Grans 0.06 10^3/uL (0.0-0.06); Absolute Basophil Count 0.06 10^3/uL (0.0-0.2); Absolute Eosinophil Count 0.19 10^3/uL (0.0-0.7); Absolute Monocyte Count 0.59 10^3/uL (0.1-0.8); Absolute Neutrophil Count 7.62 10^3/uL (1.2-6.7); Basophils % 0.6; Eosinophils % 1.8; HCT 40.8 % (36.0-46.0); HGB 13.4 g/dL (11.2-15.7); Immature Grans % 0.6; Lymphocytes % 20.5; MCH 30.5 pg (27.0-33.0); MCHC 32.8 % (32.0-36.0); MCV 92.9 fL (80-95); MPV 10.5 fL (8.0-11.0); Monocytes % 5.5; Nucleated RBC 0 %; Platelet Count 379 10^3/uL (130-400); RBC 4.39 10^6/uL (3.93-5.22); RDW 13.9 % (11.7-14.6); RDW-SD 46.6 fL; WBC 10.72 10^3/uL (4.4-10.8)
[2021-06-06 14:47] LABS: Bilirubin Negative (Negative); Blood Small (Negative); Clarity Clear (Clear); Glucose Negative (Negative); Ketones Negative (Negative); Leukocyte Esterase Trace (Negative); Nitrite Negative (Negative); Specific Gravity 1.015 (1.005-1.025); Urobilinogen 0.2 EU/dL (Up TO 0.2)
[2021-06-06 14:56] LABS: Bacteria Negative HPF (Negative); C & S Indicated? Yes; Casts Negative LPF (Negative); Crystals Negative HPF (Negative); Epithelial Cells Few HPF (Negative); Mucus Negative (Negative)
[2021-06-06 15:09] LABS: ALT 45 U/L (14-59); AST 31 U/L (15-37); Albumin 3.2 g/dL (3.4-5.0); Alkaline Phosphatase 75 U/L (46-116); Anion Gap 10.2 mmol/L (3-11); BUN 29 mg/dL (7-18); Bilirubin, Total 0.4 mg/dL (0.2-1.0); CO2 22.8 mmol/L (21.0-32.0); CREATININE 0.9 mg/dL (0.55-1.02); Calcium 8.6 mg/dL (8.5-10.1); Chloride 105 mmol/L (98-107); Glucose 85 mg/dL (74-106); NT-proBNP 4333 pg/mL (<300); Potassium 4.1 mmol/L (3.5-5.1); Sodium 138 mmol/L (136-145); TSH (W/Ref FT4) 10.94 uIU/mL (0.36-3.74)
[2021-06-06 15:13] LABS: Troponin I 406 ng/L (<or=60)
--- NOTE | 2021-06-06 15:15 | RT.EKG_ITS ---
APPROVED REPORT Exam: Resting ECG Reason for Exam: sob, elevated trop Patient Location: E HR:58 bpm ECG Measurements Heart Rate 58 AXIS WA 175 P 45 QRSd 87 QRS 65 QT 508 T 40 QTc 500 Conclusion Sinus bradycardia...rate< 60 Left atrial enlargement...P, P'>60mS, <-0.15mV V1 Abnrm R prog, consider ASMI or lead placement...Q >30mS, diminished R, V1-V2 Nonspecific ST depression...ST <-0.10mV, any 2 leads sinus bradycardia, normal axis, st segment depressions II III avF and subtle st depressions in latera l leads
--- NOTE | 2021-06-06 15:15 | DI.CT_ITS ---
Exam(s) CT CHEST PE CTA EXAM: CT CHEST PE CTA CLINICAL HISTORY: elevated trop, chest pain pleuritic. TECHNIQUE: Imaging Protocol: Axial CT angiography was performed with multi-slice acquisition and mu lti-planar and/or 3D reconstructions. CONTRAST MATERIAL: Intravenous: Omnipaque 350 Contrast volume:100 mL COMPARISON: CT CT CHEST PE CTA from 08/28/[address] ABDOMEN PELVIS W from 05/27/2021 CR XR CHEST 1V IN DI DEPT from 06/06/2021 FINDINGS: Tracheobronchial tree: Patent where visualized. Pulmonary parenchyma: There is poor inspiration. There is an infiltrate in the left lower lobe. No architectural distortion. Pulmonary Arteries: No evidence of filling defect to suggest pulmonary emboli. Mediastinum and Jessica: No dominant adenopathy or fluid collection. The esophagus is unremarkable. Visualized thyroid gland: Unremarkable. Pleura: No pneumothorax. Mild pleural thickening posteriorly. Tiny effusions cannot be excluded. Heart: Mild cardiomegaly. Coronary artery calcifications are present. No pericardial effusion. Aorta: Thoracic aorta non-dilated. Atherosclerosis. The thoracic aorta is not adequately opacified f or evaluation for thoracic dissection. Upper abdomen: Unremarkable. Soft tissues: Unremarkable. Bones: Within normal limits for the patient's age. IMPRESSION: 1. No evidence of pulmonary embolism or thoracic aortic aneurysm. 2. Left lower lobe infiltrate. 3. Results of this exam have been verbally communicated with provider. RADIATION DOSE DELIVERED: 654.85mGy.cm Total DLP DATA REPOSITORY: All CT scans at this facility are submitted to the National Radiology Data Registry (NRDR) Dose Index Registry (DIR) with the [employer] ([employer]). RADIATION OPTIMIZATION: All CT scans at this facility use at least one of these dose optimization te chniques: automated exposure control; mA and/or kV adjustment per patient size (includes targeted exa ms where dose is matched to clinical indication); or iterative reconstruction.
[2021-06-06 15:30] LABS: FREE T4 0.96 ng/dL (0.76-1.46)
[2021-06-06] MEDS: Aspirin 325 MG TAB PO (15:37)
--- NOTE | 2021-06-06 15:45 | DI.US_ITS ---
Exam(s) US LOWER EXTREMITY VENOUS LT EXAM: US LOWER EXTREMITY VENOUS LT CLINICAL HISTORY: subjective pain, recent swelling TECHNIQUE: Left lower extremity venous ultrasound performed using grayscale, color-flow, and spectra l Doppler analysis. COMPARISON: No exams were available for comparison FINDINGS: The left common femoral, femoral and popliteal veins demonstrate normal compressibility, augmentation , and color Doppler. The posterior tibial veins are patent. The saphenofemoral junction is unremarka ble. There is no evidence of a Tomlin cyst. The soft tissues are unremarkable. IMPRESSION: 1. No DVT. 2. Results of this exam have been verbally communicated with provider. DATA REPOSITORY:
[2021-06-06] MEDS: Omnipaque 350 MG/ML 100 ML BTL IJ (16:22)
[2021-06-06 16:39] LABS: Source Nasal/Nares
[2021-06-06 17:15] LABS: Troponin I 411 ng/L (<or=60)
[2021-06-06] MEDS: Clopidogrel 300 MG TAB PO (19:02)
[2021-06-06 19:20] LABS: COVID-19 PCR Negative (Negative)
[2021-06-06 19:38] LABS: PTT Activated 20.8 sec (21.0-27.5)
--- NOTE | 2021-06-06 20:52 | W.PM.HP.N ---
Assessment and Plan Assessment and plan (1) Acute non-ST elevation myocardial infarction (NSTEMI): Status: Acute Assessment and plan: Her troponins have been been slightly elevated. This will be rechecked tomorrow. Electrocardiograms x2 do not show any significant change from previous. She has been accepted for transfer to [facility] when a bed is available. Accepting doctor is Dr. Purdy (2) Left lower lobe pneumonia: Status: Acute Assessment and plan: She was recently treated for pneumonia. She has had persistent dyspnea since a Covid infection in March of this year. (3) Right upper quadrant abdominal pain: Status: Acute Assessment and plan: She had lab tests and a ultrasound of the abdomen today. No abnormalities were seen. I will check to see if a lipase has been done. If not I will order. (4) COVID-19 ruled out: Status: Acute Assessment and plan: Her Covid test is negative today. I wonder if she may have lung Covid. She is being followed by pulmonology. History of Present Illness History of Present Illness Chief Complaint: RUQ pain, dyspnea, chest pain on exertion Narrative: This 51-year-old female is here because of right upper quadrant pain, chest pain on exertion and persistent dyspnea. She was seen at [facility] about 2 years ago for chest pain and had a normal coronary catheterization. She has had persistent dyspnea since that time and has been seen a [facility] digital content marketing manager. She has been tried on various inhalers but has not helped. She did receive all 3 coronavirus vaccine doses but developed symptomatic Covid infection in March of this year. 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 She states she has felt horrible since she has had Covid and had treatment with Augmentin in April and last week was put on doxycycline for pneumonia. She is also been tried on prednisone but she does not think that has helped. When I asked her about the term lung Covid she said she has not heard that term. Her doctor at [facility] is trying to get her switched to our digital content marketing manager which will be closer to her. She has not missed work due to this illness. Her has MS and she is only one generating income. Her father had coronary artery disease with history of stents and a pacemaker. When she presented to the emergency department today she had an ultrasound of her abdomen and further evaluation showed that she had 2+ troponins. She has some abnormalities on electrocardiogram but similar to changes in the past. In emergency department she was given intravenous heparin. She is also given aspirin and clopidogrel. [facility] cardiology was consulted and she was accepted for transfer when a bed is available which could be tomorrow. A lung CT for PE was done and is negative for pulmonary emboli. She says that she has tried omeprazole and Tums for her persistent nausea and bloating after eating. She said she is burping bile and when I asked her what that means she said she can taste the bile. She has had no known fevers but she is cold frequently. She was having a headache but that has improved and she thinks she had a sinus infection. She had some urinary frequency but no dysuria. She says that there has been no diagnosis made in regards to her shortness of breath the last 2 years. He says a worth considering bronchoscopy or lung biopsy but she developed Covid. She says she feels very weak and when she eats her abdomen feels like it is full of cement. No one else has been ill at home. Review of Systems Constitutional Constitutional: Reports chills, Reports fatigue, Denies fever(s), Reports lethargy, Reports malaise and Reports weakness ENT Ears, Nose, Mouth, and Throat: Denies odynophagia Cardiovascular Cardiovascular: Reports chest pain with activity, Denies diaphoresis, Denies rapid heart rate, Denies radiating jaw, neck or arm pain, Denies palpitations, Reports dyspnea and Reports dyspnea on exertion Respiratory Respiratory: Denies cough, Denies pain on inspiration, Reports dyspnea, Reports dyspnea on exertion and Denies wheezing Gastrointestinal Gastrointestinal: Reports abdominal pain, Denies heartburn, Denies diarrhea, Denies nausea, Denies odynophagia and Denies vomiting Genitourinary Genitourinary: Denies urinary frequency, Denies difficulty voiding, Denies dysuria and Reports other (urine frequency) Neurologic Neurologic: Reports weakness Endocrine Endocrine: Reports fatigue and Denies palpitations Allergic/Immunologic Allergic/Immunologic: Denies wheezing PFSH All Active Problems (Updated 06/06/21 @ 19:11 by Stuart Iyer MD) Acute non-ST elevation myocardial infarction (NSTEMI) (Acute) Left lower lobe pneumonia (Acute) Right upper quadrant abdominal pain (Acute) Restless legs syndrome (Acute) Rhinitis, nonallergic, chronic (Acute) COVID-19 (Acute) Left lateral epicondylitis (Acute) Arthritis of carpometacarpal (CMC) joint of left thumb (Acute) Left wrist pain (Acute) CHI (closed head injury) (Acute) Tendinitis (Acute) Non-ST elevation [place] (NSTEMI) (Acute) COVID-19 ruled out (Acute) Acute bronchitis (Acute) Chest pain (Acute) Migraine headache without aura (Acute) Lichen sclerosus (Acute) Migraine with aura and without status migrainosus, not intractable (Acute 02/24/16) Medical History (Updated 06/06/21 @ 19:11 by Stuart Iyer MD) Asthma Chronic heart failure with preserved ejection fraction Depression Endometriosis Insomnia Migraine MARYLOU (obstructive sleep apnea) Overweight Surgical History History of partial hysterectomy Family History Daughter Migraines Mother Hypertension Father Heart disease Social History Smoking/Tobacco Use Status: Never Smoking risk assessment performed?: Yes Alcohol Intake: never Drug use: Never Substance use type: does not use Do you feel safe at home: Yes Do you feel safe in your relationship?: Yes Female Reproductive History Menstrual Menopause type: surgical History History 2 Para 2 Hx # Term Pregnancies Multiple births Hx # Pregnancies Ectopic pregnancies AB induced Hx Number of Living Children AB spontaneous Meds Allergies and Home Medications Allergies Allergy/AdvReac Type Severity Reaction Status Date / Time acetaminophen [From Tylenol] AdvReac Intermediate Unverified 06/06/21 13:44 clobetasol AdvReac Intermediate Skin Rash Verified 06/06/21 13:44 codeine AdvReac Mild Verified 06/06/21 13:44 ibuprofen AdvReac Unverified 06/06/21 13:44 environmental Allergy Mild Uncoded 06/06/21 13:44 Home Medications Medication Instructions Recorded Confirmed Type fluticasone propionate 50 9.9 ml NS DAILY 12/23/16 06/06/21 History mcg/actuation nasal spray,suspension (Flonase Allergy Relief) ropinirole 1 mg tablet 1 mg PO DIRECTED 06/12/20 06/06/21 History trazodone 50 mg tablet 50 mg PO QHS PRN 06/12/20 06/06/21 History diclofenac sodium 1 % topical gel 4 g TOPICAL ONCE #150 g 06/21/20 06/06/21 Rx (Voltaren) duloxetine 60 mg capsule,delayed 60 mg PO DAILY #30 mg 08/19/20 06/06/21 Rx release (Cymbalta) erenumab-aooe 140 mg/mL 140 mg SUBCUT QMONTH #1 ml 12/03/20 06/06/21 Rx subcutaneous auto-injector (Aimovig Autoinjector) gabapentin 600 mg tablet See Rx Instructions PO QHS #90 tab 12/19/20 06/06/21 Rx topiramate 100 mg tablet (Topamax) 100 mg PO QHS #90 tab-cap 01/09/21 06/06/21 Rx mometasone-formoterol HFA 200 INHALATION PRN PRN 03/23/21 04/08/21 History mcg-5 mcg/actuation aerosol inhaler (Dulera) naproxen sodium 220 mg capsule 440 mg PO PRN PRN 03/23/21 06/06/21 History (Aleve) albuterol sulfate 90 mcg/actuation 2 puff INHALATION 6XD 05/30/21 06/06/21 History aerosol inhaler loratadine 10 mg tablet (Allergy 10 mg PO DAILY 05/30/21 06/06/21 History Relief (loratadine)) doxycycline hyclate 100 mg tablet 100 mg PO BID 06/06/21 06/06/21 History Exam Const General: cooperative, healthy appearing, comfortable, no acute distress and not ill appearing Nutritional Appearance: overweight Neck Neck: normal visual inspection, no lymphadenopathy and no JVD Resp Auscultation: clear to auscultation bilaterally, no rales, no rhonchi and no wheezes Cardio Rate: regular rate Rhythm: regular rhythm Heart Sounds: S1 normal, S2 normal, no gallops and no murmurs GI Inspection: normal to inspection Palpation: soft, no hepatosplenomegaly, not firm and nontender Neuro General: patient alert, patient awake, patient oriented x3 and CN's II-XI intact bilaterally Speech: speech normal Extrem General: normal to inspection, no calf tenderness bilaterally, no cyanosis and no edema Results Labs Result diagrams: 06/06/21 14:30 06/06/21 14:30 Labs: Laboratory Results - last 24 hr 06/06/21 06/06/21 06/06/21 14:30 14:30 14:32 WBC 10.72 RBC 4.39 Hgb 13.4 Hct 40.8 MCV 92.9 MCH 30.5 MCHC 32.8 RDW 13.9 Plt Count 379 MPV 10.5 Immature Gran % 0.6 Neutrophils % 71.0 Lymphocytes % 20.5 Monocytes % 5.5 Eosinophils % 1.8 Basophils % 0.6 Nucleated RBC % 0 Absolute Neutrophils 7.62 H Absolute Lymphocytes 2.20 Absolute Monocytes 0.59 Absolute Eosinophils 0.19 Absolute Basophils 0.06 APTT Sodium 138 Potassium 4.1 Chloride 105 Carbon Dioxide 22.8 Anion Gap 10.2 BUN 29 H Creatinine 0.9 Estimated GFR/1.73 m2 >= 60.00 Glucose 85 Calcium 8.6 Total Bilirubin 0.4 AST 31 ALT 45 Alkaline Phosphatase 75 Troponin I 406 H* NT-Pro-B Natriuret Pep 4333 H Total Protein 7.0 Albumin 3.2 L TSH 10.94 H Free T4 0.96 Urine Color Yellow Urine Clarity Clear Urine pH 6.0 Ur Specific [place] 1.015 Urine Protein Negative Urine Ketones Negative Urine Blood Small H Urine Nitrite Negative Urine Bilirubin Negative Urine Urobilinogen 0.2 Ur Leukocyte Esterase Trace H Urine RBC 10-20 H Urine WBC 3-5 Ur Epithelial Cells Few Urine Crystals Negative Urine Bacteria Negative Urine Casts Negative Urine Mucus Negative Ur Culture Indicated? Yes Urine Glucose Negative COVID-19 Source SARS-CoV-2 (PCR) 06/06/21 06/06/21 06/06/21 16:34 16:34 19:00 WBC RBC Hgb Hct MCV MCH MCHC RDW Plt Count MPV Immature Gran % Neutrophils % Lymphocytes % Monocytes % Eosinophils % Basophils % Nucleated RBC % Absolute Neutrophils Absolute Lymphocytes Absolute Monocytes Absolute Eosinophils Absolute Basophils APTT 20.8 L Sodium Potassium Chloride Carbon Dioxide Anion Gap BUN Creatinine Estimated GFR/1.73 m2 Glucose Calcium Total Bilirubin AST ALT Alkaline Phosphatase Troponin I 411 H* NT-Pro-B Natriuret Pep Total Protein Albumin TSH Free T4 Urine Color Urine Clarity Urine pH Ur Specific [place] Urine Protein Urine Ketones Urine Blood Urine Nitrite Urine Bilirubin Urine Urobilinogen Ur Leukocyte Esterase Urine RBC Urine WBC Ur Epithelial Cells Urine Crystals Urine Bacteria Urine Casts Urine Mucus Ur Culture Indicated? Urine Glucose COVID-19 Source Nasal/Nares SARS-CoV-2 (PCR) Negative Last Vital Signs Temp 36 C L 06/06/21 13:39 Pulse 62 06/06/21 19:15 Resp 15 06/06/21 19:20 BP 116/80 06/06/21 19:15 Pulse Ox 100 06/06/21 19:20
[2021-06-06] MEDS: Gabapentin 600 MG TAB PO (22:04)
[2021-06-06] MEDS: Topiramate 100 MG TAB PO (22:04)
[2021-06-06] MEDS: rOPINIRole 0.5 MG TAB 1 MG PO (22:04)
[2021-06-06] MEDS: traZODone 50 MG TAB PO (22:04)
[2021-06-06] MEDS: Doxycycline Hyclate 100 MG CAP PO (22:04)
[2021-06-06 22:07] LABS: Lipase 82 U/L (73-393)
[2021-06-07] VITALS (49 sets, daily range): BP systolic 116–145; BP diastolic 73–83; PULSE 51–70; RESP 10–24; TEMP 35.8–36.6; O2SAT 89–99
[2021-06-07 01:10] LABS: PTT Activated 42.2 sec (21.0-27.5)
--- NOTE | 2021-06-07 05:30 | RT.EKG_ITS ---
APPROVED REPORT Exam: Resting ECG Reason for Exam: NSTEMI Patient Location: I HR:60 bpm ECG Measurements Heart Rate 60 AXIS MN 171 P 39 QRSd 92 QRS 55 QT 491 T 13 QTc 491 Conclusion Sinus rhythm...normal P axis, V-rate 50- 99 Left atrial enlargement...P, P'>60mS, <-0.15mV V1 Borderline ST depression, diffuse leads...ST <-0.07mV, ant/lat/inf Borderline prolonged QT interval...QTc >485mS
[2021-06-07] MEDS: Levothyroxine 25 MCG TAB PO (05:56)
[2021-06-07 07:35] LABS: Troponin I 378 ng/L (<or=60)
[2021-06-07 07:41] LABS: PTT Activated 88.7 sec (21.0-27.5)
[2021-06-07] MEDS: Doxycycline Hyclate 100 MG CAP PO (07:41)
[2021-06-07] MEDS: Loratidine 10 MG TAB PO (07:41)
[2021-06-07] MEDS: DULoxetine 30 MG CAP 60 MG PO (07:41)
[2021-06-07] MEDS: Aspirin 81 MG CHEW PO (07:41)
[2021-06-07] MEDS: Clopidogrel 75 MG TAB PO (07:41)
--- NOTE | 2021-06-07 08:15 | INITIAL_ITS ---
- If Service Date Differs Date of service: 06/07/21 Time of Service: 08:15 Care Management Initial Assess REASON FOR HOSPITALIZATION:: NSTEMI PAST MEDICAL HISTORY/PAST SURGICAL HISTORY:: Medical History (Updated 06/06/21 @ 19:11 by Stuart Iyer MD). Asthma. Chronic heart failure with preserved ejection fraction. Depression. Endometriosis. Insomnia. Migraine. MARYLOU (obstructive sleep apnea). Overweight. Surgical History . History of partial hysterectomy PREVIOUS FUNCTIONAL STATUS/SOCIAL/FAMILY SUPPORTS:: Mihaela lives in a single family home in [place] with her Boby. They have 2 adult children and 4 grandchildren, all in the area. Mihaela's mother and daughter live next door. 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 She is independent at baseline and receives no community services. CURRENT FUNCTIONAL STATUS:: Mihaela was sitting up in bed whjen SUGAR met with her. She was pleasant in interaction and engaged well with CM. Mihaela shared that her is disabled and she is the sole provider in the family. Her has MS and has been declining in the recent past. She shared that he cannot prepare meals or do much but is able to perform his own ADLs. Although her family helps when asked, Mihaela carries the brunt of responsibility for his care. She verbalized concern about missing work since hers is the only income. Mihaela is [place] [facility] it is possible that she has had an NSTEMI. ADVANCE DIRECTIVES:: None on file. After discussion with CM, was provided with 2 copies of the [employer] AD forms. Has patient been provided with info about the portal/API?: Yes Did the patient sign up for the portal?: Yes (previously) CODE STATUS:: Full Code INSURANCE COVERAGE / FINANCIAL ISSUES:: [place] Plan CURRENT HOME/COMMUNITY SERVICES/EQUIPMENT:: none PRIMARY CARE PHYSICIAN:: Polo Pearce POTENTIAL DISCHARGE NEEDS:: follow up with Cardiology and PCP PATIENT/FAMILY EDUCATION NEEDS:: Review of discharge instructions, limitations, activity, follow up plan, Ask Me Three TRANSPORTATION:: EMS coordinated by nursing supervisor dock PLAN:: Mihaela will be transferred [place] [facility] [place] soon as a [place] becomes available. She will transport vis ambulancer coordinated by the nursing supervisor dock. CM will continue to support Mihaela and assess for discharge planning concerns.
--- NOTE | 2021-06-07 10:12 | W.PM.PROGNOT ---
Date of Service Date of service: 06/07/21 Time of Service: 10:12 Assessment and Plan Assessment and plan (1) Elevated troponin I level: Status: Acute Assessment and plan: ddx: NSTEMI vs myocarditis/epimyocarditis; possible post-COVID inflammation; note patient reportedly had normal cardiac cath two years ago. Her troponin I levels while abnormal did not rise to a level I would have expected w/ an NSTEMI. Patient was put on heparin drip, ASA, Plavix for presumed NSTEMI. Her POCUS echo does not support any RWMA to suggest an ACS event. formal echo is not available on the weekend but patient has been accepted for transfer to [facility] to cardiology service of Dr. Mario Hallman. Patient is NPO pending transfer. (2) Right upper quadrant abdominal pain: Status: Acute Assessment and plan: No acute findings on physcial exam and no findings either on her abdominal US or her recent CT scan. (3) Infiltrate of lower lobe of left lung present on imaging study: Status: Acute Assessment and plan: clinically patient does not have signs or symptoms of pneumonia. She does have non-productive cough but no sputum production, fevers, rigors and no leukocytosis. Dr. Cobian, unemployment examiner chose not to treat w/ antibiotics and I agree w/ that decision. This may be residual radiologic findings from prior lung infection (COVID or bacterial pneumonitis). I think she needs pulmonary consult locally. She has a cab worker @ [facility] (dr. Beto Miller). Her POCUS of her lungs suggests a diffuse interstitial lung process. Her elevated BNP suggests a component of CHF however her POCUS echo does not support this. She needs formal echo complete w/ mitral inflow doppler readings and tissue doppler to assess diastology and she needs right heart pressure estimates from doppler interrogation of her RV inflow and outflow. Patient will have both cardiology and pulmonary available at [facility] upon transfer. Subjective Subjective Patient reports: still having pain and shortness of breath (None at rest but only with activity) Interval history since last seen: Patient is lying in the right lateral decubitus position sleeping and having sonorous respirations. I observed her for several minutes before I awakened her. I did not notice any apneic spells. Upon awakening she is alert and answering questions appropriately not in any acute distress. She states that she has an occasional nonproductive cough has had no fevers chills or rigors. She recently completed a couple courses of antibiotics including Augmentin and doxycycline for pneumonia. She still has not completely recovered from her Covid infection in March of this year. She states that her right upper quadrant was very painful last night and kept her awake most of the night. States she had a normal bowel movement yesterday has had no melena or hematochezia no nausea or vomiting. She denies any dysuria or hematuria. I reviewed the results of her CT of her chest from last night which shows no pulmonary embolism and no thoracic aortic aneurysm. There is a persistent left lower lobe infiltrate and mild cardiomegaly with coronary artery calcifications but no pericardial effusion. Upper abdomen was unremarkable. Chest x-ray showed no acute pulmonary findings. She had an abdominal ultrasound last night that showed normal IVC normal abdominal aorta normal portal vein blood flow and gallbladder showed no cholelithiasis and no gallbladder thickening or pericholecystic fluid and common bile duct appeared to be normal. Kidneys were normal in size with no hydronephrosis and no calculi. I told the patient I do not really have a good explanation for her right upper quadrant pain which radiates into her right flank. May be referred pain from her pleura where it may be a radiculopathy coming from her spine but there appear to be no acute intra-abdominal pathology on her abdominal ultrasound nor was there any on a recent CT scan performed 05/27/2021. With regard to her persistent left lower lobe infiltrate clinically she is not behaving like a pneumonia she has no sputum production and no hypoxemia although she does get exertional dyspnea and she has a dry cough. She is afebrile and has no leukocytosis. Exam Narrative Exam Narrative: Obese white female who is pleasant oriented person place time circumstance. In no acute respiratory distress. HEENT is unremarkable Neck is without JVD normal carotid pulses Lungs are clear anteriorly posteriorly heard some fine bibasilar rales no rhonchi or wheezing Heart is regular without appreciable murmur rub Abdomen is obese soft nondistended nontender to palpation without rebound tenderness or guarding and no bruits no organomegaly. Extremities without peripheral cyanosis or edema. Objective Last Vital Signs Temp 35.8 C L 06/07/21 07:48 Pulse 63 06/07/21 07:48 Resp 15 06/07/21 07:48 BP 138/79 06/07/21 07:48 Pulse Ox 97 06/07/21 07:48 Laboratory Results - last 24 hr 06/06/21 06/06/21 06/06/21 14:30 14:30 14:32 WBC 10.72 RBC 4.39 Hgb 13.4 Hct 40.8 MCV 92.9 MCH 30.5 MCHC 32.8 RDW 13.9 Plt Count 379 MPV 10.5 Immature Gran % 0.6 Neutrophils % 71.0 Lymphocytes % 20.5 Monocytes % 5.5 Eosinophils % 1.8 Basophils % 0.6 Nucleated RBC % 0 Absolute Neutrophils 7.62 H Absolute Lymphocytes 2.20 Absolute Monocytes 0.59 Absolute Eosinophils 0.19 Absolute Basophils 0.06 APTT Sodium 138 Potassium 4.1 Chloride 105 Carbon Dioxide 22.8 Anion Gap 10.2 BUN 29 H Creatinine 0.9 Estimated GFR/1.73 m2 >= 60.00 Glucose 85 Calcium 8.6 Total Bilirubin 0.4 AST 31 ALT 45 Alkaline Phosphatase 75 Troponin I 406 H* NT-Pro-B Natriuret Pep 4333 H Total Protein 7.0 Albumin 3.2 L Lipase TSH 10.94 H Free T4 0.96 Urine Color Yellow Urine Clarity Clear Urine pH 6.0 Ur Specific [place] 1.015 Urine Protein Negative Urine Ketones Negative Urine Blood Small H Urine Nitrite Negative Urine Bilirubin Negative Urine Urobilinogen 0.2 Ur Leukocyte Esterase Trace H Urine RBC 10-20 H Urine WBC 3-5 Ur Epithelial Cells Few Urine Crystals Negative Urine Bacteria Negative Urine Casts Negative Urine Mucus Negative Ur Culture Indicated? Yes Urine Glucose Negative COVID-19 Source SARS-CoV-2 (PCR) 06/06/21 06/06/21 06/06/21 16:30 16:34 16:34 WBC RBC Hgb Hct MCV MCH MCHC RDW Plt Count MPV Immature Gran % Neutrophils % Lymphocytes % Monocytes % Eosinophils % Basophils % Nucleated RBC % Absolute Neutrophils Absolute Lymphocytes Absolute Monocytes Absolute Eosinophils Absolute Basophils APTT Sodium Potassium Chloride Carbon Dioxide Anion Gap BUN Creatinine Estimated GFR/1.73 m2 Glucose Calcium Total Bilirubin AST ALT Alkaline Phosphatase Troponin I 411 H* NT-Pro-B Natriuret Pep Total Protein Albumin Lipase 82 TSH Free T4 Urine Color Urine Clarity Urine pH Ur Specific [place] Urine Protein Urine Ketones Urine Blood Urine Nitrite Urine Bilirubin Urine Urobilinogen Ur Leukocyte Esterase Urine RBC Urine WBC Ur Epithelial Cells Urine Crystals Urine Bacteria Urine Casts Urine Mucus Ur Culture Indicated? Urine Glucose COVID-19 Source Nasal/Nares SARS-CoV-2 (PCR) Negative 06/06/21 06/07/21 06/07/21 19:00 00:45 07:07 WBC RBC Hgb Hct MCV MCH MCHC RDW Plt Count MPV Immature Gran % Neutrophils % Lymphocytes % Monocytes % Eosinophils % Basophils % Nucleated RBC % Absolute Neutrophils Absolute Lymphocytes Absolute Monocytes Absolute Eosinophils Absolute Basophils APTT 20.8 L 42.2 H D Sodium Potassium Chloride Carbon Dioxide Anion Gap BUN Creatinine Estimated GFR/1.73 m2 Glucose Calcium Total Bilirubin AST ALT Alkaline Phosphatase Troponin I 378 H* NT-Pro-B Natriuret Pep Total Protein Albumin Lipase TSH Free T4 Urine Color Urine Clarity Urine pH Ur Specific [place] Urine Protein Urine Ketones Urine Blood Urine Nitrite Urine Bilirubin Urine Urobilinogen Ur Leukocyte Esterase Urine RBC Urine WBC Ur Epithelial Cells Urine Crystals Urine Bacteria Urine Casts Urine Mucus Ur Culture Indicated? Urine Glucose COVID-19 Source SARS-CoV-2 (PCR) 06/07/21 07:07 WBC RBC Hgb Hct MCV MCH MCHC RDW Plt Count MPV Immature Gran % Neutrophils % Lymphocytes % Monocytes % Eosinophils % Basophils % Nucleated RBC % Absolute Neutrophils Absolute Lymphocytes Absolute Monocytes Absolute Eosinophils Absolute Basophils APTT 88.7 H* D Sodium Potassium Chloride Carbon Dioxide Anion Gap BUN Creatinine Estimated GFR/1.73 m2 Glucose Calcium Total Bilirubin AST ALT Alkaline Phosphatase Troponin I NT-Pro-B Natriuret Pep Total Protein Albumin Lipase TSH Free T4 Urine Color Urine Clarity Urine pH Ur Specific [place] Urine Protein Urine Ketones Urine Blood Urine Nitrite Urine Bilirubin Urine Urobilinogen Ur Leukocyte Esterase Urine RBC Urine WBC Ur Epithelial Cells Urine Crystals Urine Bacteria Urine Casts Urine Mucus Ur Culture Indicated? Urine Glucose COVID-19 Source SARS-CoV-2 (PCR) Reviewed Pertinent PMH: Yes Objective Narrative Objective Narrative: Serial EKGs were reviewed including the one from last night and the repeat one this morning. Patient has sinus rhythm/bradycardia with persistent diffuse ST depression with upward sloping ST segments across the precordial leads in the inferior limb leads. EKG is unchanged since last night. Point of Care Ultrasound Note: Limited bedside echocardiogram was performed with views obtained in the parasternal long axis, parasternal short axis, apical four-chamber view, subxiphoid view. Patient appears to have left ventricular hypertrophy but no regional wall motion abnormalities were seen. RV is not dilated and contractility appears to be preserved. IVC does not appear to be dilated and appears to have adequate inspiratory contractility. I could not get the touch pad on the [employer] PX to work properly therefore cannot get measurements of her left ventricular or right ventricular wall size nor could I placed the proper gait at the mitral inflow hip pressure measurements. Likewise I cannot get measurements of her IVC but looking at it it did not appear to be grossly enlarged and appeared to be gavin with inspiration. 12 zone POCUS exam of the lungs was performed. She has a diffuse bilateral B-lines pattern. Small left pleural effusion was seen at the inferior posterior lateral space. No lung consolidation was seen. This is suggestive of an interstitial lung process such as CHF or interstitial lung inflammation possibly post COVID.
[2021-06-07 11:57] LABS: Lab Add On Test DONE
[2021-06-07 12:02] LABS: ESR 11 mm/hr (0-30)
[2021-06-07 12:07] LABS: C-Reactive Protein 0.57 mg/dL (0.0-0.3)
[2021-06-07 12:33] LABS: Procalcitonin < 0.1 ng/mL
[2021-06-07] MEDS: Pantoprazole 40 MG TABCR PO (12:48)
[2021-06-07] MEDS: Furosemide 20 MG/2 ML VIAL IVP (12:48)
--- NOTE | 2021-06-07 13:51 | W.PM.DS.N ---
Date of service: 06/07/21 Time of Service: 13:51 DS: Diagnosis Discharge Diagnosis (1) Elevated troponin I level: Status: Acute Asessment and Plan: ddx: myocarditis vs NSTEMI. Troponin I level peaked at 406 ng/L and has since declined to 378. Patient currently has no CP. Her EKG showed nonspecific ST-T upward sloping changes anterolateral precordial leads and inferior leads but no dynamic changes. Patient was treated w/ ASA, Plavix, heparin drip. POCUS echo did not show RWMA and her overall LV function appears normal. She does have LVH, particularly septal hypertrophy. CTA of her chest did not show P.E. nor any T.A.A. She has residual LLL infiltrate but clinically does not appear to have acute pneumonia (i.e. no fever, sputum production, normal WBC and normal procalcitonin, normal ESR). Patient is being transferred to cardiology at [facility] for further evaluation. (2) Right upper quadrant abdominal pain: Status: Acute Asessment and Plan: No pathology on recent CT of her abdomen and pelvis and none seen on her abdominal US last night. Unclear as to whether this is referred pain from pleura or a radiculopathy but it does not appear to be an acute GB or colon issue. (3) Infiltrate of lower lobe of left lung present on imaging study: Status: Acute Asessment and Plan: radiologic residual LLL infiltrate but w/out signs/symptoms of pneumonia. Patient has had two recent courses of antibiotics (Augmentin then doxycycline). We elected not to treat this but this will need follow up w/ pulmonary particularly in light of prior COVID infection in 2021. Discharge Plan Disposition Patient Disposition: [facility] Condition: Stable Discharge Details Reason For Visit: UNSTABLE ANGINA Admit Date/Time: 06/06/21 18:50 Admit Provider: Aaron Cobian Attending Provider: Aaron Cobian Primary Care Provider: Polo Pearce Hospital Course Hospital Course: 51-year-old female presented to the emergency department with complaints of right upper quadrant abdominal pain rating around her right flank along with exertional dyspnea and chest pain. Patient had previous cardiac work-up 2 years ago at [facility] for chest pain with a reportedly normal cardiac catheterization. She has been a experiencing exertional dyspnea this been going on for several months to over a year and has been followed by customer success advocate at [facility] Dr. Beto Miller. She could not give me a further clinical information as to what Dr. Miller impression of her exertional dyspnea secondary. Patient has been fully vaccinated against COVID-19 including 2 initial mRNA vaccines and a subsequent third dose for booster. Despite that she developed symptomatic Covid infection in March of this year. She has felt ill ever since that with progressively worsening dyspnea along with the right upper quadrant abdominal pain and chest pains. Work-up in the emergency department included a CTA of her chest as well as abdominal ultrasound EKG and routine labs and chest x-ray. EKG demonstrated sinus rhythm to sinus bradycardia with heart rates 58 to 60 bpm with nonspecific upward sloping ST depression in the inferior limb leads and across the anterolateral precordial leads. Serial ECGs were done in the emergency department and showed no dynamic changes in those ST changes. When compared to an ECG from August 29, 2019 ST changes are very similar. Initial troponin was elevated at 406 ng/L and peaked at 411 before declining down to 378 the next morning on 06/07/2021. Her proBNP was elevated at 4300 pg/mL. Her CBC was unremarkable and in particular did not show any leukocytosis or anemia. Her chemistry profile was unremarkable. Lipase was normal at 82. TSH was modestly elevated 10.94 with a normal free T4 0.96. Subsequent morning her troponin came down to 378 ng/L and procalcitonin and ESR and CRP were ordered. Procalcitonin level was less than 0.1 while CRP was mildly elevated at 0.57 but her ESR was normal at 11. Imaging was performed on admission including a chest x-ray that showed no acute pulmonary findings. In particular lungs were clear heart was normal in size and there was no pleural effusions. CT of the chest was performed and demonstrated a left lower lobe infiltrate although it was a poor inspiratory film. No pleural effusions were seen there is no adenopathy. Heart appeared to have mild cardiomegaly with coronary artery calcifications but no pericardial effusion. No thoracic aneurysm or pulmonary embolus was seen. Venous duplex scan of her left leg was ordered by the ER attending because of a history of prior left leg swelling. No DVT was seen. Abdominal ultrasound was also performed because of her complaints of right upper quadrant abdominal discomfort and this was a sonographically normal ultrasound of her abdomen. Kidneys were normal size with no calculi no hydronephrosis. Gallbladder had no stones or pericholecystic fluid and no gallbladder wall thickening. Pancreas appeared to be normal. Abdominal aorta and IVC appear to be normal. The ER attending Dr. Gay spoke w/ [facility] transfer center to request cardiology transfer for NSTEMI and he spoke w/ Dr. Titus who agreed w/ starting on heparin driop and if patient has persistent CP then starting NTG drip and recommended diuresis as needed . She was also started on ASA and Plavix. Patient was accepted for transfer to [facility] to service of Dr. Hallman but d/t lack of bed capacity she was admitted overnight to [facility]. Overnight patient stated that she had recurrent right upper quadrant abdominal pain but no chest pain. While she has no dyspnea at rest she says with any activity she gets short of breath. Patient was given a dose of Lasix 20 mg IV push as her [id number] ultrasound of her lung showed diffuse bilateral B-lines and there was suggestion of a small left posterior lateral pleural effusion. [id number] ultrasound of her heart showed overall preserved LV function but she has significant LVH in particular has septal hypertrophy. No pericardial effusion was seen. No regional wall motion abnormality was seen. Formal echocardiogram was not available on the weekend. At the time of my exam her abdomen was benign soft nontender with no masses or bruits. Patient was accepted at [facility] [place]. Hallman and transferred on June 07, 2021 in stable condition. Of note the left lower lobe infiltrate was not treated with any antibiotics as the patient had no signs or symptoms of pneumonia. Home Meds and New Rx's Prescriptions: No Action ropinirole 1 mg tablet 1 mg PO DIRECTED 0RF Rx Instructions: administer 1-3 hours before bedtime, and one at bed time trazodone 50 mg tablet 50 mg PO QHS PRN0RF Rx Instructions: 1-2 tabs qhs Aimovig Autoinjector 140 mg/mL auto-injector 140 mg subcut QMONTH Qty: 1 11RF fluticasone propionate [Flonase Allergy Relief] 9.9 ML spray,suspension 9.9 ml NS DAILY 0RF duloxetine [Cymbalta] 60 mg capsule,delayed release(DR/EC) 60 mg PO DAILY Qty: 30 2RF gabapentin 600 mg tablet See Rx Instructions PO QHS Qty: 90 3RF Rx Instructions: Take 300mg HS x 1week, then 600mg HS PO every day at bedtime; topiramate [Topamax] 100 mg tablet 100 mg PO QHS Qty: 90 3RF albuterol sulfate 90 mcg/actuation HFA aerosol inhaler 2 puff inhalation 6XD 0RF loratadine [Allergy Relief (loratadine)] 10 mg tablet 10 mg PO DAILY 0RF diclofenac sodium [Voltaren] 1 % gel 4 g topical ONCE Qty: 150 0RF Rx Instructions: apply to single knee, ankle, foot; for foot includes sole/toes/top of foot Dulera 200-5 mcg/actuation HFA aerosol inhaler INHALATION PRN PRN0RF Label Comments: Inhale 2 inhalations by mouth twice daily naproxen sodium [Aleve] 220 mg Capsule 440 mg PO PRN PRN0RF doxycycline hyclate 100 mg Tablet 100 mg PO BID 0RF Discharge Instructions Instructions: Chest Pain (DC) Activity:: bedrest Diet:: npo Discharge Orders Discharge Orders: Discharge Order (Routine); Ordered 06/07/21 Ordered By: Edwin Ball DS: Summary Time Spent with Patient providing and/or coordinating discharge services: Less than 30 minutes Specific discharge activities: Discharge summary and coordinating transfer with [facility] Status at Discharge Functional status at discharge: independent ambulation Overall status at discharge: patient is not back to baseline Mental Status: mental status grossly normal Speech and Movement: speech and movement normal Mood: congruent mood Affect: normal affect Exam Narrative Exam Narrative: Obese white female who is pleasant oriented person place time circumstance. In no acute respiratory distress. HEENT is unremarkable Neck is without JVD normal carotid pulses Lungs are clear anteriorly posteriorly heard some fine bibasilar rales no rhonchi or wheezing Heart is regular without appreciable murmur rub Abdomen is obese soft nondistended nontender to palpation without rebound tenderness or guarding and no bruits no organomegaly. Extremities without peripheral cyanosis or edema. Psych Mental Status: mental status grossly normal Speech and Movement: speech and movement normal Mood: congruent mood Affect: normal affect DS: Data Vitals/I&O Vitals and I&O: Vital Signs Temperature 36.6 C 06/07/21 12:48 Temperature Source Temporal Artery Scan 06/07/21 12:48 Pulse 64 06/07/21 12:48 Pulse 62 06/07/21 12:30 Respiratory Rate 21 06/07/21 12:48 Respiratory Effort 06/07/21 12:48 Respiratory Depth Normal 06/07/21 12:48 Respiratory Pattern Normal 06/07/21 12:48 Blood Pressure 133/75 06/07/21 12:48 Blood Pressure Mean 94 06/07/21 12:48 Blood Pressure Position Supine 06/07/21 12:48 Pulse Oximetry 98 06/07/21 12:48 Oxygen Delivery Method Room Air 06/07/21 12:48 Oxygen Flow Rate 0 06/07/21 12:48 Pain Level 0 06/07/21 12:48 Intake & Output 06/06/21 06/07/21 06/07/21 23:59 11:59 23:59 Intake Total 996.167 / 996.167 218.1 / 254.6 36.5 / 254.6 Output Total 500 / 500 1999 Balance 496.167 / 496.167 -1781.9 / -1745.4 36.5 / -1745.4 Weight 98.8 kg 99 kg Intake: IV 516.167 / 516.167 218.1 / 254.6 36.5 / 254.6 Oral 480 / 480 Output: Urine 500 / 500 1999 Other: Urine Color Yellow Yellow Urine Appearance Clear Mucous Threads Urine Odor Normal Normal Comment hysterectomy done Voiding Methods Bedside Commode Data Completed and Pending Labs on day of discharge: Labs from last 24 hours 06/07/21 06/07/21 06/07/21 14:00 07:07 07:07 WBC RBC Hgb Hct MCV MCH MCHC RDW Plt Count MPV Immature Gran % Neutrophils % Lymphocytes % Monocytes % Eosinophils % Basophils % Nucleated RBC % Absolute Neutrophils Absolute Lymphocytes Absolute Monocytes Absolute Eosinophils Absolute Basophils ESR 11 APTT Cancelled Sodium Potassium Chloride Carbon Dioxide Anion Gap BUN Creatinine Estimated GFR/1.73 m2 Glucose Calcium Total Bilirubin AST ALT Alkaline Phosphatase Troponin I C-Reactive Protein NT-Pro-B Natriuret Pep Total Protein Albumin Lipase Procalcitonin < 0.1 TSH Free T4 Urine Color Urine Clarity Urine pH Ur Specific [place] Urine Protein Urine Ketones Urine Blood Urine Nitrite Urine Bilirubin Urine Urobilinogen Ur Leukocyte Esterase Urine RBC Urine WBC Ur Epithelial Cells Urine Crystals Urine Bacteria Urine Casts Urine Mucus Ur Culture Indicated? Urine Glucose COVID-19 Source SARS-CoV-2 (PCR) Add-On Test Request 06/07/21 06/07/21 06/07/21 07:07 07:07 07:07 WBC RBC Hgb Hct MCV MCH MCHC RDW Plt Count MPV Immature Gran % Neutrophils % Lymphocytes % Monocytes % Eosinophils % Basophils % Nucleated RBC % Absolute Neutrophils Absolute Lymphocytes Absolute Monocytes Absolute Eosinophils Absolute Basophils ESR APTT 88.7 H* D Sodium Potassium Chloride Carbon Dioxide Anion Gap BUN Creatinine Estimated GFR/1.73 m2 Glucose Calcium Total Bilirubin AST ALT Alkaline Phosphatase Troponin I C-Reactive Protein 0.57 H NT-Pro-B Natriuret Pep Total Protein Albumin Lipase Procalcitonin TSH Free T4 Urine Color Urine Clarity Urine pH Ur Specific [place] Urine Protein Urine Ketones Urine Blood Urine Nitrite Urine Bilirubin Urine Urobilinogen Ur Leukocyte Esterase Urine RBC Urine WBC Ur Epithelial Cells Urine Crystals Urine Bacteria Urine Casts Urine Mucus Ur Culture Indicated? Urine Glucose COVID-19 Source SARS-CoV-2 (PCR) Add-On Test Request DONE 06/07/21 06/07/21 06/06/21 07:07 00:45 19:00 WBC RBC Hgb Hct MCV MCH MCHC RDW Plt Count MPV Immature Gran % Neutrophils % Lymphocytes % Monocytes % Eosinophils % Basophils % Nucleated RBC % Absolute Neutrophils Absolute Lymphocytes Absolute Monocytes Absolute Eosinophils Absolute Basophils ESR APTT 42.2 H D 20.8 L Sodium Potassium Chloride Carbon Dioxide Anion Gap BUN Creatinine Estimated GFR/1.73 m2 Glucose Calcium Total Bilirubin AST ALT Alkaline Phosphatase Troponin I 378 H* C-Reactive Protein NT-Pro-B Natriuret Pep Total Protein Albumin Lipase Procalcitonin TSH Free T4 Urine Color Urine Clarity Urine pH Ur Specific [place] Urine Protein Urine Ketones Urine Blood Urine Nitrite Urine Bilirubin Urine Urobilinogen Ur Leukocyte Esterase Urine RBC Urine WBC Ur Epithelial Cells Urine Crystals Urine Bacteria Urine Casts Urine Mucus Ur Culture Indicated? Urine Glucose COVID-19 Source SARS-CoV-2 (PCR) Add-On Test Request 06/06/21 06/06/21 06/06/21 16:34 16:34 16:30 WBC RBC Hgb Hct MCV MCH MCHC RDW Plt Count MPV Immature Gran % Neutrophils % Lymphocytes % Monocytes % Eosinophils % Basophils % Nucleated RBC % Absolute Neutrophils Absolute Lymphocytes Absolute Monocytes Absolute Eosinophils Absolute Basophils ESR APTT Sodium Potassium Chloride Carbon Dioxide Anion Gap BUN Creatinine Estimated GFR/1.73 m2 Glucose Calcium Total Bilirubin AST ALT Alkaline Phosphatase Troponin I 411 H* C-Reactive Protein NT-Pro-B Natriuret Pep Total Protein Albumin Lipase 82 Procalcitonin TSH Free T4 Urine Color Urine Clarity Urine pH Ur Specific [place] Urine Protein Urine Ketones Urine Blood Urine Nitrite Urine Bilirubin Urine Urobilinogen Ur Leukocyte Esterase Urine RBC Urine WBC Ur Epithelial Cells Urine Crystals Urine Bacteria Urine Casts Urine Mucus Ur Culture Indicated? Urine Glucose COVID-19 Source Nasal/Nares SARS-CoV-2 (PCR) Negative Add-On Test Request 06/06/21 06/06/21 06/06/21 14:32 14:30 14:30 WBC 10.72 RBC 4.39 Hgb 13.4 Hct 40.8 MCV 92.9 MCH 30.5 MCHC 32.8 RDW 13.9 Plt Count 379 MPV 10.5 Immature Gran % 0.6 Neutrophils % 71.0 Lymphocytes % 20.5 Monocytes % 5.5 Eosinophils % 1.8 Basophils % 0.6 Nucleated RBC % 0 Absolute Neutrophils 7.62 H Absolute Lymphocytes 2.20 Absolute Monocytes 0.59 Absolute Eosinophils 0.19 Absolute Basophils 0.06 ESR APTT Sodium 138 Potassium 4.1 Chloride 105 Carbon Dioxide 22.8 Anion Gap 10.2 BUN 29 H Creatinine 0.9 Estimated GFR/1.73 m2 >= 60.00 Glucose 85 Calcium 8.6 Total Bilirubin 0.4 AST 31 ALT 45 Alkaline Phosphatase 75 Troponin I 406 H* C-Reactive Protein NT-Pro-B Natriuret Pep 4333 H Total Protein 7.0 Albumin 3.2 L Lipase Procalcitonin TSH 10.94 H Free T4 0.96 Urine Color Yellow Urine Clarity Clear Urine pH 6.0 Ur Specific [place] 1.015 Urine Protein Negative Urine Ketones Negative Urine Blood Small H Urine Nitrite Negative Urine Bilirubin Negative Urine Urobilinogen 0.2 Ur Leukocyte Esterase Trace H Urine RBC 10-20 H Urine WBC 3-5 Ur Epithelial Cells Few Urine Crystals Negative Urine Bacteria Negative Urine Casts Negative Urine Mucus Negative Ur Culture Indicated? Yes Urine Glucose Negative COVID-19 Source SARS-CoV-2 (PCR) Add-On Test Request Preliminary micro results at discharge 06/06/21 14:32 Urine Culture - Preliminary Urine - Reflex from Ua Gram Positive [facility] CT scan - chest: Radiologist's impression: FINDINGS: Tracheobronchial tree: Patent where visualized. Pulmonary parenchyma: There is poor inspiration.? There is an infiltrate in the left lower lobe.? No architectural distortion. Pulmonary Arteries: No evidence of filling defect to suggest pulmonary emboli. Mediastinum and Jessica: No dominant adenopathy or fluid collection.? The esophagus is unremarkable.? Visualized thyroid gland: Unremarkable.? Pleura: No pneumothorax.? Mild pleural thickening posteriorly.? Tiny effusions cannot be excluded.? Heart: Mild cardiomegaly.? Coronary artery calcifications are present.? No pericardial effusion.? Aorta: Thoracic aorta non-dilated. Atherosclerosis.? The thoracic aorta is not adequately opacified for evaluation for thoracic dissection.? Upper abdomen:? Unremarkable. Soft tissues: Unremarkable.? Bones: Within normal limits for the patient's age. IMPRESSION: 1. No evidence of pulmonary embolism or thoracic aortic aneurysm. 2. Left lower lobe infiltrate. 3. Results of this exam have been verbally communicated with provider.? Lab and Radiology Reports: Laboratory Results WBC 10.72 10^3/uL (4.4-10.8) 06/06/21 14:30 RBC 4.39 10^6/uL (3.93-5.22) 06/06/21 14:30 Hgb 13.4 g/dL (11.2-15.7) 06/06/21 14:30 Hct 40.8 % (36.0-46.0) 06/06/21 14:30 MCV 92.9 fL (80-95) 06/06/21 14:30 MCH 30.5 pg (27.0-33.0) 06/06/21 14:30 MCHC 32.8 % (32.0-36.0) 06/06/21 14:30 RDW 13.9 % (11.7-14.6) 06/06/21 14:30 Plt Count 379 10^3/uL (130-400) 06/06/21 14:30 MPV 10.5 fL (8.0-11.0) 06/06/21 14:30 Immature Gran % 0.6 06/06/21 14:30 Neutrophils % 71.0 06/06/21 14:30 Lymphocytes % 20.5 06/06/21 14:30 Monocytes % 5.5 06/06/21 14:30 Eosinophils % 1.8 06/06/21 14:30 Basophils % 0.6 06/06/21 14:30 Nucleated RBC % 0 % 06/06/21 14:30 Absolute Neutrophils 7.62 10^3/uL (1.2-6.7) H 06/06/21 14:30 Absolute Lymphocytes 2.20 10^3/uL (1.2-3.4) 06/06/21 14:30 Absolute Monocytes 0.59 10^3/uL (0.1-0.8) 06/06/21 14:30 Absolute Eosinophils 0.19 10^3/uL (0.0-0.7) 06/06/21 14:30 Absolute Basophils 0.06 10^3/uL (0.0-0.2) 06/06/21 14:30 ESR 11 mm/hr (0-30) 06/07/21 07:07 APTT Cancelled 06/07/21 14:00 Sodium 138 mmol/L (136-145) 06/06/21 14:30 Potassium 4.1 mmol/L (3.5-5.1) 06/06/21 14:30 Chloride 105 mmol/L (98-107) 06/06/21 14:30 Carbon Dioxide 22.8 mmol/L (21.0-32.0) 06/06/21 14:30 Anion Gap 10.2 mmol/L (3-11) 06/06/21 14:30 BUN 29 mg/dL (7-18) H 06/06/21 14:30 Creatinine 0.9 mg/dL (0.55-1.02) 06/06/21 14:30 Estimated GFR/1.73 m2 >= 60.00 (mL/min/1.73m2) 06/06/21 14:30 Glucose 85 mg/dL (74-106) 06/06/21 14:30 Calcium 8.6 mg/dL (8.5-10.1) 06/06/21 14:30 Total Bilirubin 0.4 mg/dL (0.2-1.0) 06/06/21 14:30 AST 31 U/L (15-37) 06/06/21 14:30 ALT 45 U/L (14-59) 06/06/21 14:30 Alkaline Phosphatase 75 U/L (46-116) 06/06/21 14:30 Troponin I 378 ng/L (<or=60) H* 06/07/21 07:07 C-Reactive Protein 0.57 mg/dL (0.0-0.3) H 06/07/21 07:07 NT-Pro-B Natriuret Pep 4333 pg/mL (<300) H 06/06/21 14:30 Total Protein 7.0 g/dL (6.4-8.2) 06/06/21 14:30 Albumin 3.2 g/dL (3.4-5.0) L 06/06/21 14:30 Lipase 82 U/L (73-393) 06/06/21 16:30 Procalcitonin < 0.1 ng/mL 06/07/21 07:07 TSH 10.94 uIU/mL (0.36-3.74) H 06/06/21 14:30 Free T4 0.96 ng/dL (0.76-1.46) 06/06/21 14:30 Urine Color Yellow (Yellow) 06/06/21 14:32 Urine Clarity Clear (Clear) 06/06/21 14:32 Urine pH 6.0 (5-8) 06/06/21 14:32 Ur Specific [place] 1.015 (1.005-1.025) 06/06/21 14:32 Urine Protein Negative mg/dL (Negative) 06/06/21 14:32 Urine Ketones Negative mg/dL (Negative) 06/06/21 14:32 Urine Blood Small (Negative) H 06/06/21 14:32 Urine Nitrite Negative (Negative) 06/06/21 14:32 Urine Bilirubin Negative (Negative) 06/06/21 14:32 Urine Urobilinogen 0.2 EU/dL (Up TO 0.2) 06/06/21 14:32 Ur Leukocyte Esterase Trace (Negative) H 06/06/21 14:32 Urine RBC 10-20 HPF (0-2) H 06/06/21 14:32 Urine WBC 3-5 HPF (0-5) 06/06/21 14:32 Ur Epithelial Cells Few HPF (Negative) 06/06/21 14:32 Urine Crystals Negative HPF (Negative) 06/06/21 14:32 Urine Bacteria Negative HPF (Negative) 06/06/21 14:32 Urine Casts Negative LPF (Negative) 06/06/21 14:32 Urine Mucus Negative (Negative) 06/06/21 14:32 Ur Culture Indicated? Yes 06/06/21 14:32 Urine Glucose Negative mg/dL (Negative) 06/06/21 14:32 COVID-19 Source Nasal/Nares 06/06/21 16:34 SARS-CoV-2 (PCR) Negative (Negative) 06/06/21 16:34 Add-On Test Request DONE 06/07/21 07:07 US - abdomen: Radiologist's impression: Exam(s) US ABDOMEN EXAM:? US ABDOMEN CLINICAL HISTORY:? RUQ pain nausea, concern for biliary pathology TECHNIQUE:? Ultrasound abdomen performed using standard protocol. COMPARISON:? No exams were available for comparison FINDINGS: ABDOMINAL AORTA AND IVC: Visualized portions normal caliber.? PANCREAS: Normal where visualized. LIVER: Normal. Hepatopedal flow in the Portal Vein. GALLBLADDER:No evidence of cholelithiasis. No evidence of wall thickening. No pericholecystic fluid identified.? BILIARY SYSTEM: Common bile duct measures < 7 mm. No intrahepatic biliary ductal dilation. BOSS'S SIGN: Negative. KIDNEYS: Kidneys are symmetric in size. No evidence of renal calculi. No evidence of hydronephrosis. No renal mass or cyst identified. SPLEEN: Not enlarged. ASCITES: None seen. IMPRESSION: Normal sonographic appearance of the upper abdomen. Lab and Radiology Reports: Laboratory Results WBC 10.72 10^3/uL (4.4-10.8) 06/06/21 14:30 RBC 4.39 10^6/uL (3.93-5.22) 06/06/21 14:30 Hgb 13.4 g/dL (11.2-15.7) 06/06/21 14:30 Hct 40.8 % (36.0-46.0) 06/06/21 14:30 MCV 92.9 fL (80-95) 06/06/21 14:30 MCH 30.5 pg (27.0-33.0) 06/06/21 14:30 MCHC 32.8 % (32.0-36.0) 06/06/21 14:30 RDW 13.9 % (11.7-14.6) 06/06/21 14:30 Plt Count 379 10^3/uL (130-400) 06/06/21 14:30 MPV 10.5 fL (8.0-11.0) 06/06/21 14:30 Immature Gran % 0.6 06/06/21 14:30 Neutrophils % 71.0 06/06/21 14:30 Lymphocytes % 20.5 06/06/21 14:30 Monocytes % 5.5 06/06/21 14:30 Eosinophils % 1.8 06/06/21 14:30 Basophils % 0.6 06/06/21 14:30 Nucleated RBC % 0 % 06/06/21 14:30 Absolute Neutrophils 7.62 10^3/uL (1.2-6.7) H 06/06/21 14:30 Absolute Lymphocytes 2.20 10^3/uL (1.2-3.4) 06/06/21 14:30 Absolute Monocytes 0.59 10^3/uL (0.1-0.8) 06/06/21 14:30 Absolute Eosinophils 0.19 10^3/uL (0.0-0.7) 06/06/21 14:30 Absolute Basophils 0.06 10^3/uL (0.0-0.2) 06/06/21 14:30 ESR 11 mm/hr (0-30) 06/07/21 07:07 APTT Cancelled 06/07/21 14:00 Sodium 138 mmol/L (136-145) 06/06/21 14:30 Potassium 4.1 mmol/L (3.5-5.1) 06/06/21 14:30 Chloride 105 mmol/L (98-107) 06/06/21 14:30 Carbon Dioxide 22.8 mmol/L (21.0-32.0) 06/06/21 14:30 Anion Gap 10.2 mmol/L (3-11) 06/06/21 14:30 BUN 29 mg/dL (7-18) H 06/06/21 14:30 Creatinine 0.9 mg/dL (0.55-1.02) 06/06/21 14:30 Estimated GFR/1.73 m2 >= 60.00 (mL/min/1.73m2) 06/06/21 14:30 Glucose 85 mg/dL (74-106) 06/06/21 14:30 Calcium 8.6 mg/dL (8.5-10.1) 06/06/21 14:30 Total Bilirubin 0.4 mg/dL (0.2-1.0) 06/06/21 14:30 AST 31 U/L (15-37) 06/06/21 14:30 ALT 45 U/L (14-59) 06/06/21 14:30 Alkaline Phosphatase 75 U/L (46-116) 06/06/21 14:30 Troponin I 378 ng/L (<or=60) H* 06/07/21 07:07 C-Reactive Protein 0.57 mg/dL (0.0-0.3) H 06/07/21 07:07 NT-Pro-B Natriuret Pep 4333 pg/mL (<300) H 06/06/21 14:30 Total Protein 7.0 g/dL (6.4-8.2) 06/06/21 14:30 Albumin 3.2 g/dL (3.4-5.0) L 06/06/21 14:30 Lipase 82 U/L (73-393) 06/06/21 16:30 Procalcitonin < 0.1 ng/mL 06/07/21 07:07 TSH 10.94 uIU/mL (0.36-3.74) H 06/06/21 14:30 Free T4 0.96 ng/dL (0.76-1.46) 06/06/21 14:30 Urine Color Yellow (Yellow) 06/06/21 14:32 Urine Clarity Clear (Clear) 06/06/21 14:32 Urine pH 6.0 (5-8) 06/06/21 14:32 Ur Specific [place] 1.015 (1.005-1.025) 06/06/21 14:32 Urine Protein Negative mg/dL (Negative) 06/06/21 14:32 Urine Ketones Negative mg/dL (Negative) 06/06/21 14:32 Urine Blood Small (Negative) H 06/06/21 14:32 Urine Nitrite Negative (Negative) 06/06/21 14:32 Urine Bilirubin Negative (Negative) 06/06/21 14:32 Urine Urobilinogen 0.2 EU/dL (Up TO 0.2) 06/06/21 14:32 Ur Leukocyte Esterase Trace (Negative) H 06/06/21 14:32 Urine RBC 10-20 HPF (0-2) H 06/06/21 14:32 Urine WBC 3-5 HPF (0-5) 06/06/21 14:32 Ur Epithelial Cells Few HPF (Negative) 06/06/21 14:32 Urine Crystals Negative HPF (Negative) 06/06/21 14:32 Urine Bacteria Negative HPF (Negative) 06/06/21 14:32 Urine Casts Negative LPF (Negative) 06/06/21 14:32 Urine Mucus Negative (Negative) 06/06/21 14:32 Ur Culture Indicated? Yes 06/06/21 14:32 Urine Glucose Negative mg/dL (Negative) 06/06/21 14:32 COVID-19 Source Nasal/Nares 06/06/21 16:34 SARS-CoV-2 (PCR) Negative (Negative) 06/06/21 16:34 Add-On Test Request DONE 06/07/21 07:07 Venous US: Radiologist's impression: Exam(s) US LOWER EXTREMITY VENOUS LT EXAM:? US LOWER EXTREMITY VENOUS LT CLINICAL HISTORY:? subjective pain, recent swelling? TECHNIQUE:? Left lower extremity venous ultrasound performed using grayscale, color-flow, and spectral Doppler analysis. COMPARISON:? No exams were available for comparison FINDINGS: The left common femoral, femoral and popliteal veins demonstrate normal compressibility, augmentation, and color Doppler. The posterior tibial veins are patent.? The saphenofemoral junction is unremarkable.? There is no evidence of a Tomlin cyst.? The soft tissues are unremarkable. IMPRESSION: 1. No DVT. 2. Results of this exam have been verbally communicated with provider. Lab and Radiology Reports: Laboratory Results WBC 10.72 10^3/uL (4.4-10.8) 06/06/21 14:30 RBC 4.39 10^6/uL (3.93-5.22) 06/06/21 14:30 Hgb 13.4 g/dL (11.2-15.7) 06/06/21 14:30 Hct 40.8 % (36.0-46.0) 06/06/21 14:30 MCV 92.9 fL (80-95) 06/06/21 14:30 MCH 30.5 pg (27.0-33.0) 06/06/21 14:30 MCHC 32.8 % (32.0-36.0) 06/06/21 14:30 RDW 13.9 % (11.7-14.6) 06/06/21 14:30 Plt Count 379 10^3/uL (130-400) 06/06/21 14:30 MPV 10.5 fL (8.0-11.0) 06/06/21 14:30 Immature Gran % 0.6 06/06/21 14:30 Neutrophils % 71.0 06/06/21 14:30 Lymphocytes % 20.5 06/06/21 14:30 Monocytes % 5.5 06/06/21 14:30 Eosinophils % 1.8 06/06/21 14:30 Basophils % 0.6 06/06/21 14:30 Nucleated RBC % 0 % 06/06/21 14:30 Absolute Neutrophils 7.62 10^3/uL (1.2-6.7) H 06/06/21 14:30 Absolute Lymphocytes 2.20 10^3/uL (1.2-3.4) 06/06/21 14:30 Absolute Monocytes 0.59 10^3/uL (0.1-0.8) 06/06/21 14:30 Absolute Eosinophils 0.19 10^3/uL (0.0-0.7) 06/06/21 14:30 Absolute Basophils 0.06 10^3/uL (0.0-0.2) 06/06/21 14:30 ESR 11 mm/hr (0-30) 06/07/21 07:07 APTT Cancelled 06/07/21 14:00 Sodium 138 mmol/L (136-145) 06/06/21 14:30 Potassium 4.1 mmol/L (3.5-5.1) 06/06/21 14:30 Chloride 105 mmol/L (98-107) 06/06/21 14:30 Carbon Dioxide 22.8 mmol/L (21.0-32.0) 06/06/21 14:30 Anion Gap 10.2 mmol/L (3-11) 06/06/21 14:30 BUN 29 mg/dL (7-18) H 06/06/21 14:30 Creatinine 0.9 mg/dL (0.55-1.02) 06/06/21 14:30 Estimated GFR/1.73 m2 >= 60.00 (mL/min/1.73m2) 06/06/21 14:30 Glucose 85 mg/dL (74-106) 06/06/21 14:30 Calcium 8.6 mg/dL (8.5-10.1) 06/06/21 14:30 Total Bilirubin 0.4 mg/dL (0.2-1.0) 06/06/21 14:30 AST 31 U/L (15-37) 06/06/21 14:30 ALT 45 U/L (14-59) 06/06/21 14:30 Alkaline Phosphatase 75 U/L (46-116) 06/06/21 14:30 Troponin I 378 ng/L (<or=60) H* 06/07/21 07:07 C-Reactive Protein 0.57 mg/dL (0.0-0.3) H 06/07/21 07:07 NT-Pro-B Natriuret Pep 4333 pg/mL (<300) H 06/06/21 14:30 Total Protein 7.0 g/dL (6.4-8.2) 06/06/21 14:30 Albumin 3.2 g/dL (3.4-5.0) L 06/06/21 14:30 Lipase 82 U/L (73-393) 06/06/21 16:30 Procalcitonin < 0.1 ng/mL 06/07/21 07:07 TSH 10.94 uIU/mL (0.36-3.74) H 06/06/21 14:30 Free T4 0.96 ng/dL (0.76-1.46) 06/06/21 14:30 Urine Color Yellow (Yellow) 06/06/21 14:32 Urine Clarity Clear (Clear) 06/06/21 14:32 Urine pH 6.0 (5-8) 06/06/21 14:32 Ur Specific [place] 1.015 (1.005-1.025) 06/06/21 14:32 Urine Protein Negative mg/dL (Negative) 06/06/21 14:32 Urine Ketones Negative mg/dL (Negative) 06/06/21 14:32 Urine Blood Small (Negative) H 06/06/21 14:32 Urine Nitrite Negative (Negative) 06/06/21 14:32 Urine Bilirubin Negative (Negative) 06/06/21 14:32 Urine Urobilinogen 0.2 EU/dL (Up TO 0.2) 06/06/21 14:32 Ur Leukocyte Esterase Trace (Negative) H 06/06/21 14:32 Urine RBC 10-20 HPF (0-2) H 06/06/21 14:32 Urine WBC 3-5 HPF (0-5) 06/06/21 14:32 Ur Epithelial Cells Few HPF (Negative) 06/06/21 14:32 Urine Crystals Negative HPF (Negative) 06/06/21 14:32 Urine Bacteria Negative HPF (Negative) 06/06/21 14:32 Urine Casts Negative LPF (Negative) 06/06/21 14:32 Urine Mucus Negative (Negative) 06/06/21 14:32 Ur Culture Indicated? Yes 06/06/21 14:32 Urine Glucose Negative mg/dL (Negative) 06/06/21 14:32 COVID-19 Source Nasal/Nares 06/06/21 16:34 SARS-CoV-2 (PCR) Negative (Negative) 06/06/21 16:34 Add-On Test Request DONE 06/07/21 07:07 CT scan - abdomen: Radiologist's impression: FINDINGS: ABDOMEN: Lung Bases: Pneumonia left lower lobe.? No effusions.? Heart appears enlarged.? Small hiatal hernia. Liver: Appearance of passive venous congestion..? No measurable mass. Gallbladder and biliary tract: No radiodense calculus or dilation.? Pancreas: Normal density, no abnormal calcifications or inflammatory process. Spleen: Normal. Kidneys: Normal size, contour and axis. No radiodense stones or obstructive uropathy. No masses seen. Adrenal glands: No masses seen. Abdominal Aorta: Abdominal portion non-dilated. ? Moderate atherosclerotic changes. PELVIS:? Bladder:? No gross wall thickening. No calculi.No focal mass. Bowel: Cecum projects toward the left upper quadrant, consistent with redundant mesentery.? No obstruction or bowel wall thickening. Appendix normal. Peritoneal cavity: No ascites, collection or mesenteric inflammatory response. Bones: Within normal limits for age.? Reproductive organs: Status post hysterectomy.? Ovaries within normal limits. Lymph nodes: Unremarkable.? Impression: Left lower lobe pneumonia.? No acute abnormality in the abdomen or pelvis.? Lab and Radiology Reports: Laboratory Results WBC 10.72 10^3/uL (4.4-10.8) 06/06/21 14:30 RBC 4.39 10^6/uL (3.93-5.22) 06/06/21 14:30 Hgb 13.4 g/dL (11.2-15.7) 06/06/21 14:30 Hct 40.8 % (36.0-46.0) 06/06/21 14:30 MCV 92.9 fL (80-95) 06/06/21 14:30 MCH 30.5 pg (27.0-33.0) 06/06/21 14:30 MCHC 32.8 % (32.0-36.0) 06/06/21 14:30 RDW 13.9 % (11.7-14.6) 06/06/21 14:30 Plt Count 379 10^3/uL (130-400) 06/06/21 14:30 MPV 10.5 fL (8.0-11.0) 06/06/21 14: Immature Gran % 0.6 06/06/21 14:30 Neutrophils % 71.0 06/06/21 14:30 Lymphocytes % 20.5 06/06/21 14: Monocytes % 5.5 06/06/21 14:30 Eosinophils % 1.8 06/06/21 14:30 Basophils % 0.6 06/06/21 14:30 Nucleated RBC % 0 % 06/06/21 14:30 Absolute Neutrophils 7.62 10^3/uL (1.2-6.7) H 06/06/21 14:30 Absolute Lymphocytes 2.20 10^3/uL (1.2-3.4) 06/06/21 14:30 Absolute Monocytes 0.59 10^3/uL (0.1-0.8) 06/06/21 14:30 Absolute Eosinophils 0.19 10^3/uL (0.0-0.7) 06/06/21 14:30 Absolute Basophils 0.06 10^3/uL (0.0-0.2) 06/06/21 14:30 ESR 11 mm/hr (0-30) 06/07/21 07:07 APTT Cancelled 06/07/21 14:00 Sodium 138 mmol/L (136-145) 06/06/21 14:30 Potassium 4.1 mmol/L (3.5-5.1) 06/06/21 14:30 Chloride 105 mmol/L (98-107) 06/06/21 14:30 Carbon Dioxide 22.8 mmol/L (21.0-32.0) 06/06/21 14:30 Anion Gap 10.2 mmol/L (3-11) 06/06/21 14:30 BUN 29 mg/dL (7-18) H 06/06/21 14:30 Creatinine 0.9 mg/dL (0.55-1.02) 06/06/21 14:30 Estimated GFR/1.73 m2 >= 60.00 (mL/min/1.73m2) 06/06/21 14:30 Glucose 85 mg/dL (74-106) 06/06/21 14:30 Calcium 8.6 mg/dL (8.5-10.1) 06/06/21 14:30 Total Bilirubin 0.4 mg/dL (0.2-1.0) 06/06/21 14:30 AST 31 U/L (15-37) 06/06/21 14:30 ALT 45 U/L (14-59) 06/06/21 14:30 Alkaline Phosphatase 75 U/L (46-116) 06/06/21 14:30 Troponin I 378 ng/L (<or=60) H* 06/07/21 07:07 C-Reactive Protein 0.57 mg/dL (0.0-0.3) H 06/07/21 07:07 NT-Pro-B Natriuret Pep 4333 pg/mL (<300) H 06/06/21 14:30 Total Protein 7.0 g/dL (6.4-8.2) 06/06/21 14:30 Albumin 3.2 g/dL (3.4-5.0) L 06/06/21 14:30 Lipase 82 U/L (73-393) 06/06/21 16:30 Procalcitonin < 0.1 ng/mL 06/07/21 07:07 TSH 10.94 uIU/mL (0.36-3.74) H 06/06/21 14:30 Free T4 0.96 ng/dL (0.76-1.46) 06/06/21 14:30 Urine Color Yellow (Yellow) 06/06/21 14:32 Urine Clarity Clear (Clear) 06/06/21 14:32 Urine pH 6.0 (5-8) 06/06/21 14:32 Ur Specific [place] 1.015 (1.005-1.025) 06/06/21 14:32 Urine Protein Negative mg/dL (Negative) 06/06/21 14:32 Urine Ketones Negative mg/dL (Negative) 06/06/21 14:32 Urine Blood Small (Negative) H 06/06/21 14:32 Urine Nitrite Negative (Negative) 06/06/21 14:32 Urine Bilirubin Negative (Negative) 06/06/21 14:32 Urine Urobilinogen 0.2 EU/dL (Up TO 0.2) 06/06/21 14:32 Ur Leukocyte Esterase Trace (Negative) H 06/06/21 14:32 Urine RBC 10-20 HPF (0-2) H 06/06/21 14:32 Urine WBC 3-5 HPF (0-5) 06/06/21 14:32 Ur Epithelial Cells Few HPF (Negative) 06/06/21 14:32 Urine Crystals Negative HPF (Negative) 06/06/21 14:32 Urine Bacteria Negative HPF (Negative) 06/06/21 14:32 Urine Casts Negative LPF (Negative) 06/06/21 14:32 Urine Mucus Negative (Negative) 06/06/21 14:32 Ur Culture Indicated? Yes 06/06/21 14:32 Urine Glucose Negative mg/dL (Negative) 06/06/21 14:32 COVID-19 Source Nasal/Nares 06/06/21 16:34 SARS-CoV-2 (PCR) Negative (Negative) 06/06/21 16:34 Add-On Test Request DONE 06/07/21 07:07 PFSH All Active Problems Infiltrate of lower lobe of left lung present on imaging study (Acute) Elevated troponin I level (Acute) Acute non-ST elevation myocardial infarction (NSTEMI) (Acute) Left lower lobe pneumonia (Acute) Right upper quadrant abdominal pain (Acute) Restless legs syndrome (Acute) Rhinitis, nonallergic, chronic (Acute) COVID-19 (Acute) Left lateral epicondylitis (Acute) Arthritis of carpometacarpal (CMC) joint of left thumb (Acute) Left wrist pain (Acute) CHI (closed head injury) (Acute) Tendinitis (Acute) Non-ST elevation ID (NSTEMI) (Acute) COVID-19 ruled out (Acute) Acute bronchitis (Acute) Chest pain (Acute) Migraine headache without aura (Acute) Lichen sclerosus (Acute) Migraine with aura and without status migrainosus, not intractable (Acute 02/24/16) Medical History Asthma Chronic heart failure with preserved ejection fraction Depression Endometriosis Insomnia Migraine MARYLOU (obstructive sleep apnea) Overweight Surgical History History of partial hysterectomy Family History Daughter Migraines Mother Hypertension Father Heart disease Social History Smoking/Tobacco Use Status: Never Smoking risk assessment performed?: Yes Alcohol Intake: never Drug use: Never Substance use type: does not use Do you feel safe at home: Yes Do you feel safe in your relationship?: Yes Female Reproductive History Menstrual Menopause type: surgical History History 2 Para 2 Hx # Term Pregnancies Multiple births Hx # Pregnancies Ectopic pregnancies AB induced Hx Number of Living Children AB spontaneous
== END 2021-06-07 14:46 | disposition short-term general hospital (02) | DRG 280 ==
LOC: ER 18:15 → ICU 20:14
PROVIDERS: Emergency Medicine; Internal Medicine; Admitting Provider Family Medicine; Emergency Provider Student in an Organized Health Care Education/Training Program; PCP Physician Assistant; Visit Provider Family Medicine
DX: I21.4 Non-ST elevation (NSTEMI) myocardial infarction (principal); I40.9 Acute myocarditis, unspecified; I50.32 Chronic diastolic (congestive) heart failure; R10.31 Right lower quadrant pain; R06.00 Dyspnea, unspecified; U09.9 Post COVID-19 condition, unspecified; G25.81 Restless legs syndrome; J30.9 Allergic rhinitis, unspecified; G43.009 Migraine without aura, not intractable, without status migrainosus; L90.0 Lichen sclerosus et atrophicus; F32.A Depression, unspecified; N80.9 Endometriosis, unspecified; G47.33 Obstructive sleep apnea (adult) (pediatric); G47.00 Insomnia, unspecified; R91.8 Other nonspecific abnormal finding of lung field
CPT/HCPCS: 36415; 71275; 80053; 83690; 84145; 85652; 87635; 93005; 96361; 96365; 96366; 96375; 96376; 99285; 99291; 71045; 76700; 81003; 81015; 83880; 84439; 84443; 84484; 85025; 85730; 86140; 87086; 93010; 93971; 99222; 99238; J1941; J2405; J3490

== ENCOUNTER 2021-06-12 22:11 | Observation (INO) | payer OTHER, SELFPAY ==
[2021-06-12] VITALS (19 sets, daily range): BP systolic 100–111; BP diastolic 56–65; PULSE 55–82; RESP 12–24; TEMP 36.2; O2SAT 90–99
--- NOTE | 2021-06-12 22:00 | RT.EKG_ITS ---
APPROVED REPORT Exam: Resting ECG Reason for Exam: chest pain Patient Location: E HR:80 bpm ECG Measurements Heart Rate 80 AXIS MT 194 P 61 QRSd 94 QRS 63 QT 372 T -10 QTc 430 Conclusion Sinus rhythm. Probable left atrial enlargement. Repol abnrm.ST-T neg, ant/lat/inf, siimilar to previoius
--- NOTE | 2021-06-12 22:15 | DI.RAD_ITS ---
Exam(s) XR PORTABLE CHEST AP EXAM: XR PORTABLE CHEST AP CLINICAL HISTORY: tachycardia. TECHNIQUE: 2D digital imaging was performed. COMPARISON: CR XR CHEST 1V IN DI DEPT from 06/06/2021 FINDINGS: Single AP portable view. There is a cardiac monitoring device over the left side of the chest now evident. Heart size is upper normal. The mediastinum is not widened. Lungs are clear. No infiltrates nor obvious pleural effusions. IMPRESSION: No acute pulmonary findings on this single AP portable view of the chest. Recommend nonportable PA and lateral views when clinically possible for better evaluation of the true heart size. DATA REPOSITORY: RADIATION DOSE DELIVERED: All CT scans at this facility use at least one of these dose optimization techniques: automated exposure control; mA and/or kV adjustment per patient size (includes targeted e xams where dose is matched to clinical indication); or iterative reconstruction.
--- NOTE | 2021-06-12 22:25 | ED.GENADUL_ITS ---
Discharge Plan Disposition Patient Disposition: [facility] INPATIENT Condition: Stable Discharge Details Clinical Impression: Acute non-ST elevation myocardial infarction (NSTEMI) Admit Date/Time: 06/13/21 00:17 Admit Provider: Jose Monroy Attending Provider: Jose Monroy Primary Care Provider: Polo Pearce ED Provider: Jasiel Caicedo Medical Decision Making 51-year-old female presents from home via EMS. She was recently admitted to [facility] for elevated troponin, released on Wednesday. After eating dinner tonight she developed palpitations in her chest and felt nauseated and lightheaded. EMS responded and found her to be in a narrow complex rhythm felt to be SVT with a rate of 156. She was given 325 mg of aspirin, IV access was attempted but unsuccessful. On route in the ambulance patient spontaneously converted back to sinus rhythm. Patient arrives improved. I reviewed her discharge summary for date of service 06/09/2021. Patient was discharged with a weight of 95 kg / 209 pounds, she was sent home on Lasix 20 mg daily and Jardiance 10 mg daily both of which were new medications. She was discharged with a Zio patch and to follow-up with cardiology in 1 month. Patient had note of echocardiogram done June 08 which showed LV of normal size and wall thickness with LVEF of 61%. RV was of normal size. Patient underwent right heart catheterization for pulmonary hypertension which was graded as mild. The echo was notable for severely dilated left atrium. Note patient had a brain MRI June 08 which was normal. After arrival, patient placed on process maintenance technician, IV established, EKG obtained and she is referred for laboratory testing and chest x-ray. Labs note elevated troponin I of 629. BUN is 28 with creatinine of 1.1, chemistries reassuring, CBC unremarkable. Chest x-ray reveals mild cardiomegaly with mild vascular congestion similar to previous Case discussed with on-call cardiology at [facility], Dr. Mejia. He states the patient had clean coronary arteries when catheterized in 2019. He states she does likely have microvascular disease. He agrees with continuing heparin, with plan for admission for further trending of cardiac troponin and per his recommendation a nuclear stress test. Should the patient have rising troponin, develop recurrent chest discomfort, Dr. Mejia is available for sedation. HPI General Mode of arrival: ambulatory . Date/Time Provider Initiated Documentation: 06/12/21 22:17 . Limitations to Documentation: no limitations . Information obtained by: patient . History of Present Illness 51 year old F presents to the emergency department with the chief complaint of Palpitations and dizziness at home, described as moderate, Quality is described as dull, and is localized to the chest. Patient reports no radiation. Patient started experiencing this minute(s) and it has been now resolved. improves with No relieving factors improve symptom(s), No exacerbating factors reported . Patient notes loss of appetite and weakness. Patient did receive the following treatments prior to arrival, Aspirin Related Data Home Medications Medication Instructions Recorded Confirmed fluticasone propionate 50 9.9 ml NS DAILY 12/23/16 06/13/21 mcg/actuation nasal spray,suspension (Flonase Allergy Relief) ropinirole 1 mg tablet 1 mg PO DIRECTED 06/12/20 06/13/21 trazodone 50 mg tablet 50 mg PO QHS PRN 06/12/20 06/13/21 diclofenac sodium 1 % topical gel 4 g TOPICAL ONCE #150 g 06/21/20 06/13/21 (Voltaren) duloxetine 60 mg capsule,delayed 60 mg PO DAILY #30 mg 08/19/20 06/13/21 release (Cymbalta) gabapentin 600 mg tablet See Rx Instructions PO QHS #90 tab 12/19/20 06/13/21 topiramate 100 mg tablet (Topamax) 100 mg PO QHS #90 tab-cap 01/09/21 06/13/21 mometasone-formoterol HFA 200 INHALATION PRN PRN 03/23/21 06/10/21 mcg-5 mcg/actuation aerosol inhaler (Dulera) naproxen sodium 220 mg capsule 440 mg PO PRN PRN 03/23/21 06/13/21 (Aleve) albuterol sulfate 90 mcg/actuation 2 puff INHALATION 6XD 05/30/21 06/13/21 aerosol inhaler loratadine 10 mg tablet (Allergy 10 mg PO DAILY 05/30/21 06/13/21 Relief (loratadine)) aspirin 81 mg chewable tablet 81 mg PO DAILY 06/10/21 06/13/21 atorvastatin 80 mg tablet 80 mg PO QPM tab 06/10/21 06/13/21 empagliflozin 10 mg tablet 10 mg PO DAILY 06/10/21 06/13/21 erenumab-aooe 140 mg/mL 140 mg SUBCUT QMONTH #1 ml 06/10/21 06/13/21 subcutaneous auto-injector (Aimovig Autoinjector) lisinopril 2.5 mg tablet 2.5 mg PO DAILY 06/10/21 06/13/21 Previous Rx's Medication Instructions Recorded diclofenac sodium 1 % topical gel 4 g TOPICAL ONCE #150 g 06/21/20 (Voltaren) duloxetine 60 mg capsule,delayed 60 mg PO DAILY #30 mg 08/19/20 release (Cymbalta) gabapentin 600 mg tablet See Rx Instructions PO QHS #90 tab 12/19/20 topiramate 100 mg tablet (Topamax) 100 mg PO QHS #90 tab-cap 01/09/21 erenumab-aooe 140 mg/mL 140 mg SUBCUT QMONTH #1 ml 06/10/21 subcutaneous auto-injector (Aimovig Autoinjector) Allergies Allergy/AdvReac Type Severity Reaction Status Date / Time acetaminophen [From Tylenol] AdvReac Intermediate Unverified 06/12/21 22:29 clobetasol AdvReac Intermediate Skin Rash Verified 06/12/21 22:29 codeine AdvReac Mild Verified 06/12/21 22:29 ibuprofen AdvReac Unverified 06/12/21 22:29 environmental Allergy Mild Uncoded 06/12/21 22:29 General Stated Complaint: Chest Pain MIKAELA: 3 Review of Systems Narrative: Discharge to home on Wednesday from [facility]. Has lost weight, has been taking her medications. Denied to me recent illness. 7 systems reviewed and otherwise negative [facility] All Active Problems (Updated 06/13/21 @ 00:48 by Jose Monroy) Right-sided heart failure (Acute) PSVT (paroxysmal supraventricular tachycardia) (Acute) Acute non-ST elevation myocardial infarction (NSTEMI) (Acute) Infiltrate of lower lobe of left lung present on imaging study (Acute) Elevated troponin I level (Acute) Acute non-ST elevation myocardial infarction (NSTEMI) (Acute) Right upper quadrant abdominal pain (Acute) Restless legs syndrome (Acute) Rhinitis, nonallergic, chronic (Acute) COVID-19 (Acute) Left lateral epicondylitis (Acute) Arthritis of carpometacarpal (CMC) joint of left thumb (Acute) Left wrist pain (Acute) CHI (closed head injury) (Acute) Tendinitis (Acute) Non-ST elevation VA (NSTEMI) (Acute) Acute bronchitis (Acute) Chest pain (Acute) Migraine headache without aura (Acute) Lichen sclerosus (Acute) Migraine with aura and without status migrainosus, not intractable (Acute 02/24/16) Medical History Asthma Chronic heart failure with preserved ejection fraction Depression Endometriosis Insomnia Migraine MARYLOU (obstructive sleep apnea) Overweight Surgical History History of partial hysterectomy Family History Daughter Migraines Mother Hypertension Father Heart disease Social History Smoking/Tobacco Use Status: Never Smoking risk assessment performed?: Yes Alcohol Intake: never Drug use: Never Substance use type: does not use Do you feel safe at home: Yes Do you feel safe in your relationship?: Yes Female Reproductive History Menstrual Menopause type: surgical History History 2 Para 2 Hx # Term Pregnancies Multiple births Hx # Pregnancies Ectopic pregnancies AB induced Hx Number of Living Children AB spontaneous Exam Narrative Exam Narrative: GEN: awake, alert, oriented 3. Pleasant, well groomed, interactive. HEAD: Normocephalic, atraumatic ENT: Mucous membranes moist, oropharynx unremarkable, External ear exam unremarkable EYES: PERRL, EOMI NECK: Full ROM, no JO, no menigismus CHEST/RESP: Nontender, clear to auscultation bilateral, no wheeze/rhonchi/rales CARDIOVASCULAR: Anterior chest external process maintenance technician in place RRR, no murmur, rub simran. 2+ Rad pulse bilateral ABDOMEN: Soft, nontender, no mass. +Bowel sounds EXT: Full ROM, no edema, no rash Neuro: Grossly normal neurologic exam, conversant, interactive. Psych: Speech fluent, thoughts congruent, affect normal Course Vital Signs Vital signs: Vital Signs Temperature 36.2 C L 06/12/21 22:12 Pulse 82 06/12/21 22:12 Respiratory Rate 18 06/12/21 22:12 Blood Pressure 109/58 L 06/12/21 22:12 Pulse Oximetry 97 04/07/22 22:12 Temperature 36.2 C L 06/12/21 22:12 Temperature Source Skin 06/12/21 22:12 Pulse 82 06/12/21 22:12 Respiratory Rate 18 06/12/21 22:12 Blood Pressure 109/58 L 06/12/21 22:12 Blood Pressure Position Sitting 06/12/21 22:12 Pulse Oximetry 97 06/12/21 22:12 Oxygen Delivery Method Room Air 06/12/21 22:12 Oxygen Flow Rate 0 06/12/21 22:12 Pain Level 4 06/12/21 22:12
[2021-06-12 22:39] LABS: Abs Immature Grans 0.03 10^3/uL (0.0-0.06); Absolute Basophil Count 0.07 10^3/uL (0.0-0.2); Absolute Eosinophil Count 0.13 10^3/uL (0.0-0.7); Absolute Lymphocyte Count 1.41 10^3/uL (1.2-3.4); Absolute Monocyte Count 0.86 10^3/uL (0.1-0.8); Absolute Neutrophil Count 7.57 10^3/uL (1.2-6.7); Basophils % 0.7; Eosinophils % 1.3; HCT 47.4 % (36.0-46.0); HGB 14.7 g/dL (11.2-15.7); Immature Grans % 0.3; MCH 29.6 pg (27.0-33.0); MCV 95.6 fL (80-95); MPV 10.5 fL (8.0-11.0); Monocytes % 8.5; Neutrophils % 75.2; Nucleated RBC 0 %; Platelet Count 321 10^3/uL (130-400); RBC 4.96 10^6/uL (3.93-5.22); RDW 14.2 % (11.7-14.6); RDW-SD 49.5 fL; WBC 10.07 10^3/uL (4.4-10.8)
[2021-06-12 22:53] LABS: ALT 42 U/L (14-59); AST 43 U/L (15-37); Albumin 3.7 g/dL (3.4-5.0); Alkaline Phosphatase 87 U/L (46-116); BUN 28 mg/dL (7-18); Bilirubin, Total 0.4 mg/dL (0.2-1.0); CREATININE 1.1 mg/dL (0.55-1.02); Calcium 9.4 mg/dL (8.5-10.1); Chloride 103 mmol/L (98-107); Estimated GFR 52.16 (mL/min/1.73m2); Glucose 85 mg/dL (74-106); Magnesium 2.3 mg/dL (1.8-2.4); Potassium 3.7 mmol/L (3.5-5.1); Sodium 140 mmol/L (136-145)
--- NOTE | 2021-06-12 23:16 | DI.VRAD_ITS ---
PROCEDURE INFORMATION: Exam: XR Chest Exam date and time: 06/12/2021 22:30 Age: 51 years old Clinical indication: Other: Chest pain, tachycardia TECHNIQUE: Imaging protocol: XR of the chest. Views: 1 view. COMPARISON: CR XR CHEST 1V IN DI DEPT 06/06/2021 14:58 FINDINGS: Tubes, catheters and devices: Cardiac monitoring device projects over the left heart. Lungs: No airspace consolidation. Pleural spaces: No pleural effusion. No pneumothorax. Heart/Mediastinum: Mild cardiomegaly with mild vascular congestion similar to previous imaging. Bones/joints: No acute fracture. IMPRESSION: Mild cardiomegaly with mild vascular congestion similar to previous imaging. Dictated and Authenticated by: Noemi Hernandez MD. Ordering:BRITTNEY Weathers MD
[2021-06-13] VITALS (87 sets, daily range): BP systolic 80–118; BP diastolic 38–66; PULSE 45–67; RESP 10–19; TEMP 36–36.5; O2SAT 92–100
[2021-06-13 00:06] LABS: Source Nasal/Nares
--- NOTE | 2021-06-13 00:16 | HPE_ITS ---
Date of service: 06/13/21 Time of Service: 00:17 Assessment and Plan Assessment and plan (1) Acute non-ST elevation myocardial infarction (NSTEMI): Start date: 06/12/21 Status: Acute Assessment and plan: This is a 51-year-old lady who recently hospitalized with a non-STEMI and hospitalized at [facility] returning home and feeling more normal until presentation with this hospitalization having chest pain as an elephant was on her chest and an episode of PSVT witnessed by EMS. Her troponin was elevated higher than her previous hospitalization but [facility] thought that she could be treated medically with addition of beta-tiffanie and heparin infusion which was initiated in the ED. she also received aspirin. She is already on a high dose statin. She is remained in sinus rhythm since she self converted and transferred to the ambulance by EMS. She is not having palpitations or chest discomfort presently. This presentation was more typical of an episode of angina but the silk screen painter at [facility] thought a nuclear stress test would be adequate with observation and trending troponins on heparin infusion. Patient is a full code. (2) PSVT (paroxysmal supraventricular tachycardia): Start date: 06/12/21 Status: Acute Assessment and plan: Patient is on metoprolol and in normal sinus rhythm at this time. Continue to monitor and continue beta-blockade. Watch for hypotension with patient having soft blood pressure. She will be continued on low-dose RITCHIE inhibitor. (3) Right-sided heart failure: Start date: 06/12/21 Status: Chronic Assessment and plan: Continue Lasix and monitor labs. Follow-up imaging as needed. History of Present Illness History of Present Illness Chief Complaint: Palpitations with dizziness and chest discomfort Narrative: This is a 51 years old female was recently hospitalized at [facility] with a non-STEMI after having been transferred from this facility initially. Evaluation at [facility] with right-sided cardiac catheterization did reveal right-sided heart failure with preserved left ventricular ejection fraction and normal LV size and wall thickness. She was placed on Lasix and Jardiance which were new in her regimen. She was not placed on a beta-tiffanie. Her elevated troponins trended to normal and she did not have a left heart catheterization because of a normal catheterization in 2019 when she presented with elevated troponins but not having typical anginal symptoms. At that time she mostly had upper respiratory symptoms with a cough. The patient was sent home with a Zio patch. The patient was sitting at her table at home when she began to have chest palpitations and pressure as if an elephant was sitting on her chest with radiation into both jaws and into both shoulders. It did not radiate into her back. She also had a headache over the back of her head with a history of migraines. All this came on at the same time. She was diaphoretic and dyspneic. She did not have any na usea or vomiting. She called EMS when the symptoms began and was brought to the ED for further evaluation. She was found to have an elevated troponin higher than her previous measurement which was in the 400 range now at 629. There were no acute EKG changes. When EMS did pickle sorter the patient at her home, she was in a narrow complex tachycardic rhythm in the 150 range which looked like SVT. Whi le the patient was being put into the ambulance she converted back to sinus rhythm. In the emergency room she remained in sinus rhythm. The ED physician did talk to [facility] cardiology who advised treating with heparin infusion and trending troponins with no transfer for immediate cardiac catheterization needed at this time They did advise nuclear stress test to be done in the morning. If the patient had troponins trending upward or new EKG changes we would reconsult Dr. Mejia for possible transfer. Review of Systems Narrative: 13 point review of systems otherwise unrevealing or stable with patient being overweight and having chronic psychiatric and respiratory symptoms as well as musculoskeletal complaints with her obesity. PFSH All Active Problems (Updated 06/13/21 @ 03:00 by Jose Monroy) Right-sided heart failure (Chronic) PSVT (paroxysmal supraventricular tachycardia) (Acute) Acute non-ST elevation myocardial infarction (NSTEMI) (Acute) Infiltrate of lower lobe of left lung present on imaging study (Acute) Elevated troponin I level (Acute) Acute non-ST elevation myocardial infarction (NSTEMI) (Acute) Right upper quadrant abdominal pain (Acute) Restless legs syndrome (Acute) Rhinitis, nonallergic, chronic (Acute) COVID-19 (Acute) Left lateral epicondylitis (Acute) Arthritis of carpometacarpal (CMC) joint of left thumb (Acute) Left wrist pain (Acute) CHI (closed head injury) (Acute) Tendinitis (Acute) Non-ST elevation [place] (NSTEMI) (Acute) Acute bronchitis (Acute) Chest pain (Acute) Migraine headache without aura (Acute) Lichen sclerosus (Acute) Migraine with aura and without status migrainosus, not intractable (Acute 02/24/16) Medical History Asthma Chronic heart failure with preserved ejection fraction Depression Endometriosis Insomnia Migraine MARYLOU (obstructive sleep apnea) Overweight Surgical History History of partial hysterectomy Family History Daughter Migraines Mother Hypertension Father Heart disease Social History Smoking/Tobacco Use Status: Never Smoking risk assessment performed?: Yes Alcohol Intake: never Drug use: Never Substance use type: does not use Do you feel safe at home: Yes Do you feel safe in your relationship?: Yes Female Reproductive History Menstrual Menopause type: surgical History History 2 Para 2 Hx # Term Pregnancies Multiple births Hx # Pregnancies Ectopic pregnancies AB induced Hx Number of Living Children AB spontaneous Meds Allergies and Home Medications Allergies Allergy/AdvReac Type Severity Reaction Status Date / Time acetaminophen [From Tylenol] AdvReac Intermediate Unverified 06/12/21 22:29 clobetasol AdvReac Intermediate Skin Rash Verified 06/12/21 22:29 codeine AdvReac Mild Verified 06/12/21 22:29 ibuprofen AdvReac Unverified 06/12/21 22:29 environmental Allergy Mild Uncoded 06/12/21 22:29 Home Medications Medication Instructions Recorded Confirmed Type fluticasone propionate 50 9.9 ml NS DAILY 12/23/16 06/13/21 History mcg/actuation nasal spray,suspension (Flonase Allergy Relief) ropinirole 1 mg tablet 1 mg PO DIRECTED 06/12/20 06/13/21 History trazodone 50 mg tablet 50 mg PO QHS PRN 06/12/20 06/13/21 History diclofenac sodium 1 % topical gel 4 g TOPICAL ONCE #150 g 06/21/20 06/13/21 Rx (Voltaren) duloxetine 60 mg capsule,delayed 60 mg PO DAILY #30 mg 08/19/20 06/13/21 Rx release (Cymbalta) gabapentin 600 mg tablet See Rx Instructions PO QHS #90 tab 10/14/21 04/08/22 Rx topiramate 100 mg tablet (Topamax) 100 mg PO QHS #90 tab-cap 01/09/21 06/13/21 Rx mometasone-formoterol HFA 200 INHALATION PRN PRN 03/23/21 06/10/21 History mcg-5 mcg/actuation aerosol inhaler (Dulera) naproxen sodium 220 mg capsule 440 mg PO PRN PRN 03/23/21 06/13/21 History (Aleve) albuterol sulfate 90 mcg/actuation 2 puff INHALATION 6XD 05/30/21 06/13/21 History aerosol inhaler loratadine 10 mg tablet (Allergy 10 mg PO DAILY 05/30/21 06/13/21 History Relief (loratadine)) aspirin 81 mg chewable tablet 81 mg PO DAILY 06/10/21 06/13/21 History atorvastatin 80 mg tablet 80 mg PO QPM tab 06/10/21 06/13/21 History empagliflozin 10 mg tablet 10 mg PO DAILY 06/10/21 06/13/21 History erenumab-aooe 140 mg/mL 140 mg SUBCUT QMONTH #1 ml 06/10/21 06/13/21 Rx subcutaneous auto-injector (Aimovig Autoinjector) lisinopril 2.5 mg tablet 2.5 mg PO DAILY 06/10/21 06/13/21 History Exam Narrative Exam Narrative: General: Patient appears older than stated age, alert and oriented x3 and in no acute distress. She has a flattened affect with good eye contact. HEENT: Normocephalic, eyes with pupils equal and reactive light symmetrically, extraocular movement intact and sclera anicteric. Oropharynx with moist mucosa. Neck: Supple without JVD. Lungs: Clear to auscultation with no focalized rales or. Fair aeration. Heart: Regular rate and rhythm with no appreciable murmur or gallop. She does have an occasional irregularity to her rhythm. Breast: Exam deferred. Abdomen: Obese contour, soft nontender to palpation with no palpable hepatosplenomegaly. Bowel sounds positive in all quadrants. Genitalia/rectal: Exam deferred Extremities: Without clubbing, cyanosis or pitting edema. Good capillary refill and peripheral pulses intact. Skin: Normal color, warm and dry. Neuro: Cranial nerves II to XII grossly intact, no focalizing motor deficits. No tremor. Psych: Slightly depressed mood but normal affect. Normal thought processes. Remote and recent memory grossly intact. Results Imaging Imaging Studies: Exam: XR Chest Exam date and time: 06/12/2021 22:30 Age: 51 years old Clinical indication: Other: Chest pain, tachycardia TECHNIQUE: Imaging protocol: XR of the chest. Views: 1 view. COMPARISON: CR XR CHEST 1V IN DI DEPT 06/06/2021 14:58 FINDINGS: Tubes, catheters and devices: Cardiac monitoring device projects over the left heart. Lungs: No airspace consolidation. Pleural spaces: No pleural effusion. No pneumothorax. Heart/Mediastinum: Mild cardiomegaly with mild vascular congestion similar to previous imaging. Bones/joints: No acute fracture.? IMPRESSION: Mild cardiomegaly with mild vascular congestion similar to previous imaging. Dictated and Authenticated by: Noemi Hernandez MD. Labs Result diagrams: 06/12/21 22:31 06/12/21 22:31 Labs: Laboratory Results - last 24 hr 06/12/21 06/12/21 06/12/21 22:31 22:31 23:57 WBC 10.07 RBC 4.96 Hgb 14.7 Hct 47.4 H MCV 95.6 H MCH 29.6 MCHC 31.0 L RDW 14.2 Plt Count 321 MPV 10.5 Immature Gran % 0.3 Neutrophils % 75.2 Lymphocytes % 14.0 Monocytes % 8.5 Eosinophils % 1.3 Basophils % 0.7 Nucleated RBC % 0 Absolute Neutrophils 7.57 H Absolute Lymphocytes 1.41 Absolute Monocytes 0.86 H Absolute Eosinophils 0.13 Absolute Basophils 0.07 Sodium 140 Potassium 3.7 Chloride 103 Carbon Dioxide 24.0 Anion Gap 13.0 H BUN 28 H Creatinine 1.1 H Estimated GFR/1.73 m2 52.16 Glucose 85 Calcium 9.4 Magnesium 2.3 Total Bilirubin 0.4 AST 43 H ALT 42 Alkaline Phosphatase 87 Troponin I 629 H* Total Protein 8.0 Albumin 3.7 COVID-19 Source Nasal/Nares Last Vital Signs Temp 36.2 C L 06/12/21 22:12 Pulse 55 L 06/12/21 23:46 Resp 14 06/12/21 23:50 BP 103/63 06/12/21 23:46 Pulse Ox 97 06/12/21 23:50
[2021-06-13] MEDS: Metoprolol 12.5 MG TAB PO (00:26)
[2021-06-13 02:22] LABS: INR 1.1 (0.9-1.1); PTT Activated 26.8 sec (21.0-27.5); Prothrombin Time 11.1 sec (9.3-11.0)
[2021-06-13] MEDS: Topiramate 100 MG TAB PO (02:32)
[2021-06-13 02:37] LABS: NT-proBNP 1147 pg/mL (<300)
[2021-06-13 05:07] LABS: Abs Immature Grans 0.03 10^3/uL (0.0-0.06); Absolute Basophil Count 0.08 10^3/uL (0.0-0.2); Absolute Eosinophil Count 0.16 10^3/uL (0.0-0.7); Absolute Lymphocyte Count 2.17 10^3/uL (1.2-3.4); Absolute Monocyte Count 0.69 10^3/uL (0.1-0.8); Absolute Neutrophil Count 5.11 10^3/uL (1.2-6.7); Eosinophils % 1.9; HCT 46.1 % (36.0-46.0); HGB 14.6 g/dL (11.2-15.7); Immature Grans % 0.4; Lymphocytes % 26.3; MCH 30.1 pg (27.0-33.0); MCHC 31.7 % (32.0-36.0); MCV 95.1 fL (80-95); MPV 10.8 fL (8.0-11.0); Monocytes % 8.4; Nucleated RBC 0 %; Platelet Count 297 10^3/uL (130-400); RBC 4.85 10^6/uL (3.93-5.22); RDW 14.2 % (11.7-14.6); RDW-SD 49.7 fL; WBC 8.24 10^3/uL (4.4-10.8)
[2021-06-13 05:14] LABS: ALT 38 U/L (14-59); AST 46 U/L (15-37); Albumin 3.3 g/dL (3.4-5.0); Alkaline Phosphatase 78 U/L (46-116); Anion Gap 11.8 mmol/L (3-11); BUN 27 mg/dL (7-18); Bilirubin, Total 0.4 mg/dL (0.2-1.0); CO2 21.2 mmol/L (21.0-32.0); CREATININE 0.9 mg/dL (0.55-1.02); Calcium 8.9 mg/dL (8.5-10.1); Chloride 105 mmol/L (98-107); Glucose 99 mg/dL (74-106); Sodium 138 mmol/L (136-145); Total Protein 7.2 g/dL (6.4-8.2)
[2021-06-13 05:22] LABS: Troponin I 1702 ng/L (<or=60)
[2021-06-13 05:25] LABS: Troponin I 629 ng/L (<or=60)
[2021-06-13 05:25] LABS: Troponin I 946 ng/L (<or=60)
[2021-06-13 07:52] LABS: PTT Activated 76.7 sec (21.0-27.5)
--- NOTE | 2021-06-13 08:00 | RT.EKG_ITS ---
APPROVED REPORT Exam: Resting ECG Reason for Exam: EKG done Patient Location: I HR:47 bpm ECG Measurements Heart Rate 47 AXIS OR 220 P 5 QRSd 92 QRS 36 QT 533 T -85 QTc 472 Conclusion Sinus bradycardia...rate< 50 Prolonged OR interval...OR >220, V-rate 30- 49 Left atrial enlargement...P, P'>60mS, <-0.15mV V1 Nonspecific repol abnormality, diffuse leads...ST dep, T flat/neg, ant/lat/inf
[2021-06-13 08:15] LABS: COVID-19 PCR Negative (Negative)
[2021-06-13 08:17] LABS: Troponin I 1924 ng/L (<or=60)
[2021-06-13 08:21] LABS: TSH (W/Ref FT4) 13.35 uIU/mL (0.36-3.74)
--- NOTE | 2021-06-13 08:21 | INITIAL_ITS ---
- If Service Date Differs Date of service: 06/13/21 Time of Service: 08:21 Care Management Initial Assess REASON FOR HOSPITALIZATION:: Acute NSTEMI, PSVT PAST MEDICAL HISTORY/PAST SURGICAL HISTORY:: All Active Problems (Updated 06/13/21 @ 03:00 by Jsoe Monroy). Right-sided heart failure (Chronic). PSVT (paroxysmal supraventricular tachycardia) (Acute). Acute non-ST elevation myocardial infarction (NSTEMI) (Acute). Infiltrate of lower lobe of left lung present on imaging study (Acute). Elevated troponin I level (Acute). Acute non-ST elevation myocardial infarction (NSTEMI) (Acute). Right upper quadrant abdominal pain (Acute). Restless legs syndrome (Acute). Rhinitis, nonallergic, chronic (Acute). COVID-19 (Acute). Left lateral epicondylitis (Acute). Arthritis of carpometacarpal (CMC) joint of left thumb (Acute). Left wrist pain (Acute). CHI (closed head injury) (Acute). Tendinitis (Acute). Non-ST elevation [place] (NSTEMI) (Acute). Acute bronchitis (Acute). Chest pain (Acute). Migraine headache without aura (Acute). Lichen sclerosus (Acute). Migraine with aura and without status migrainosus, not intractable (Acute 02/24/16). Medical History . Asthma. Chronic heart failure with preserved ejection fraction. Depression. Endometriosis. Insomnia. Migraine. MARYLOU (obstructive sleep apnea). Overweight PREVIOUS FUNCTIONAL STATUS/SOCIAL/FAMILY SUPPORTS:: Indira lives in [facility] with her Marv. She has two adult children. 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 She drives and is independent at baseline. ADVANCE DIRECTIVES:: None on file, will offer forms. Has patient been provided with info about the portal/API?: Yes Did the patient sign up for the portal?: Yes (Prior to admission) CODE STATUS:: Full Code INSURANCE COVERAGE / FINANCIAL ISSUES:: To[employer] [place] [facility] Plan PRIMARY CARE PHYSICIAN:: Polo Pearce POTENTIAL DISCHARGE NEEDS:: Follow up appointments, cardiac event recorder PATIENT/FAMILY EDUCATION NEEDS:: Review discharge instructions, limitations, medications and plan to follow up with community providers. ask me three. TRANSPORTATION:: via private vehicle with family. PLAN:: Per Dr. Trinh, Mihaela has been accepted in transfer [place] [facility] [place]. Mihaela will remain in the ICU for close monitoring and medication management until transfer occurs. CM will continue to support discharge planning needs.
[2021-06-13 08:41] LABS: FREE T4 0.93 ng/dL (0.76-1.46)
[2021-06-13] MEDS: nitroGLYcerin 0.4 MG TAB SL ×2 (09:52→10:53)
[2021-06-13] MEDS: Pantoprazole 40 MG VIAL IVP (09:54)
[2021-06-13] MEDS: Aspirin 81 MG CHEW PO (09:55)
[2021-06-13] MEDS: DULoxetine 30 MG CAP 60 MG PO (09:56)
[2021-06-13] MEDS: Normal Saline Flush 10 ML SYR IVP (10:00)
[2021-06-13] MEDS: Lisinopril 5 MG TAB 2.5 MG PO (10:28)
--- NOTE | 2021-06-13 10:30 | DSE_ITS ---
Date of service: 06/13/21 Time of Service: 10:31 DS: Diagnosis Discharge Diagnosis (1) Acute non-ST elevation myocardial infarction (NSTEMI): Status: Acute (2) Atypical chest pain: Status: Acute Asessment and Plan: Abdominal discomfort and back discomfort radiating to the chest, resolved with nitroglycerin. Back pain was reproducible with palpation. (3) PSVT (paroxysmal supraventricular tachycardia): Status: Acute (4) Right-sided heart failure: Status: Chronic (5) Chronic heart failure with preserved ejection fraction: Discharge Plan Disposition Patient Disposition: [facility] Condition: Stable Discharge Details Reason For Visit: PSVT, Non-STEMI Admit Date/Time: 06/13/21 00:17 Admit Provider: Jose Monroy Attending Provider: Jose Monroy Primary Care Provider: Polo Pearce Hospital Course Hospital Course: Mr Driver is a 51 year old female with PMHx of CHFpEF and R-sided CHF, MARYLOU on nocturnal BiPAP, COVID-19 in March of 2021 and obesity with BMI of 36.1, who was admitted to [facility] hospitalist service on 06/13/21 and upgraded to ICU level of care having presented after a protracted episode of palpitations and vague abdominal and back discomfort radiating to the chest which persisted after the palpitations stopped. EMS suspected SVT with HR of 150s - however, no strips are available to confirm this at this time, and the arrhythmia had resolved by the time of presentation to [facility] ED. The patient's troponin I (high sensitivity) on presentation was 629 ng/L, trending up to 946, 1702, and now to 1924 at 07:20 this am. Her EKgs are unchanged, showing sinus bradycardia and inferior lateral borderline ST depressions. There is evidence of LA enlargement by EKG. The patient was initiated on heparin gtt and low dose metoprolol on admission. The abdominal and the back discomfort radiating to the chest both resolved with administration of nitroglycerin. Transfer [place] [facility] [place] sought overnight when the troponins were less elevated - at the time, it was felt that her troponinemia was due to demand of SVT and that the patient would be stable to remain at our facility for an MPI stress test. The patient had a negative L heart catheterization in 2019. She was recommended to remain on aspirin, statin, and heparin gtt. However, given ongoing elevations in troponin and patient's symptoms, transfer to [facility] was again pursued, and the patient was accepted in transfer to Dr Rodrigues's cardiology service for an evaluation for further ischemic workup, be that MPI stress test and/or a cardiac catheterization. Neither cardiology consultation service nor MPI stress test would be available at our facility for the next 72 hrs. The patient is in agreement to transfer and is stable for transfer. Of note, per [facility] cardiology's recommendation, the patient was not loaded with plavix on her stay with us. We appreciate the help of the [facility] clinical team and wish the patient well. Total Critical Care Time 60 minutes. The list of medications below reflects the patient's outpatient prescriptions. Please, look at MAR for list of her inpatient medications. Home Meds and New Rx's Prescriptions: No Action ropinirole 1 mg tablet 1 mg PO DIRECTED 0RF Rx Instructions: administer 1-3 hours before bedtime, and one at bed time trazodone 50 mg tablet 50 mg PO QHS [id number] Rx Instructions: 1-2 tabs qhs aspirin 81 mg tablet,chewable 81 mg PO DAILY 0RF atorvastatin 80 mg tablet 80 mg PO QPM 0RF empagliflozin 10 mg tablet 10 mg PO DAILY 0RF lisinopril 2.5 mg tablet 2.5 mg PO DAILY 0RF Aimovig Autoinjector 140 mg/mL auto-injector 140 mg subcut QMONTH Qty: 1 11RF fluticasone propionate [Flonase Allergy Relief] 9.9 ML spray,suspension 9.9 ml NS DAILY 0RF duloxetine [Cymbalta] 60 mg capsule,delayed release(DR/EC) 60 mg PO DAILY Qty: 30 2RF gabapentin 600 mg tablet See Rx Instructions PO QHS Qty: 90 3RF Rx Instructions: Take 300mg HS x 1week, then 600mg HS PO every day at bedtime; topiramate [Topamax] 100 mg tablet 100 mg PO QHS Qty: 90 3RF albuterol sulfate 90 mcg/actuation HFA aerosol inhaler 2 puff inhalation 6XD 0RF loratadine [Allergy Relief (loratadine)] 10 mg tablet 10 mg PO DAILY 0RF diclofenac sodium [Voltaren] 1 % gel 4 g topical ONCE Qty: 150 0RF Rx Instructions: apply to single knee, ankle, foot; for foot includes sole/toes/top of foot Dulera 200-5 mcg/actuation HFA aerosol inhaler INHALATION PRN PRN0RF Label Comments: Inhale 2 inhalations by mouth twice daily naproxen sodium [Aleve] 220 mg Capsule 440 mg PO PRN PRN0RF Discharge Instructions Referrals: Polo Pearce [Primary Care Provider] - Jose Rodrigues MD [MD CONSULTING PHYSICIAN] - Activity:: OOB to chair Diet:: NPO Discharge Orders Discharge Orders: Discharge Order (Routine); Ordered 06/13/21 Ordered By: Gale Trinh DS: Summary Time Spent with Patient providing and/or coordinating discharge services: Greater than 30 minutes Status at Discharge Functional status at discharge: independent ambulation Overall status at discharge: patient is not back to baseline Mental Status: mental status grossly normal Speech and Movement: speech and movement normal Mood: congruent mood Affect: normal affect Exam Narrative Exam Narrative: General: Pleasant mildly anxious obese female who is asleep, easily arousable, A&Ox3 HEENT: EOMI, MMM Heart: RRR, no m/r/g Lungs: CTAB Abdomen: soft, minimally tender in RUQ, nondistended. Extremities: no edema BLEs Psych Mental Status: mental status grossly normal Speech and Movement: speech and movement normal Mood: congruent mood Affect: normal affect DS: Data Vitals/I&O Vitals and I&O: Vital Signs Temperature 36.5 C 06/13/21 01:20 Temperature Source Tympanic 06/13/21 01:20 Pulse 48 L 06/13/21 06:06 Pulse 47 L 06/13/21 07:10 Respiratory Rate 11 L 06/13/21 01:35 Respiratory Effort 06/13/21 01:20 Respiratory Depth Normal 06/13/21 01:20 Respiratory Pattern Normal 06/13/21 01:20 Blood Pressure 104/66 06/13/21 06:06 Blood Pressure Mean 75 06/13/21 06:06 Blood Pressure Position Sitting 06/12/21 22:12 Pulse Oximetry 100 06/13/21 07:10 Oxygen Delivery Method Room Air 06/13/21 01:20 Oxygen Flow Rate 0 06/13/21 01:20 Pain Level 0 06/13/21 01:20 Intake & Output 0406/12/21 06/13/21 11:59 23:59 11:59 Intake Total 131.5 / 131.5 Output Total 575 / 575 Balance -443.5 / -443.5 Weight 94.347 kg 95.4 kg Intake: IV 81.5 / 81.5 Oral 50 / 50 Output: Urine 575 / 575 Other: Urine Color Yellow Urine Appearance Clear Urine Odor None Comment mixed with large BM Stool Occult Blood Negative Stool Size Large Stool Characteristics Formed Brown Voiding Methods Bedside Commode Data Completed and Pending Completed studies during hospitalization [Text1]: CXR: No acute pulmonary findings on this single AP portable view of the chest. Labs on day of discharge: Labs from last 24 hours 06/13/21 06/13/21 06/13/21 14:00 12:00 07:20 WBC RBC Hgb Hct MCV MCH MCHC RDW Plt Count MPV Immature Gran % Neutrophils % Lymphocytes % Monocytes % Eosinophils % Basophils % Nucleated RBC % Absolute Neutrophils Absolute Lymphocytes Absolute Monocytes Absolute Eosinophils Absolute Basophils PT INR APTT Cancelled Sodium Potassium Chloride Carbon Dioxide Anion Gap BUN Creatinine Estimated GFR/1.73 m2 Glucose Calcium Magnesium Total Bilirubin AST ALT Alkaline Phosphatase Troponin I Pending 1924 H* NT-Pro-B Natriuret Pep Total Protein Albumin TSH Free T4 COVID-19 Source SARS-CoV-2 (PCR) 06/13/21 06/13/21 06/13/21 07:20 07:20 04:32 WBC 8.24 RBC 4.85 Hgb 14.6 Hct 46.1 H MCV 95.1 H MCH 30.1 MCHC 31.7 L RDW 14.2 Plt Count 297 MPV 10.8 Immature Gran % 0.4 Neutrophils % 62.0 Lymphocytes % 26.3 Monocytes % 8.4 Eosinophils % 1.9 Basophils % 1.0 Nucleated RBC % 0 Absolute Neutrophils 5.11 Absolute Lymphocytes 2.17 Absolute Monocytes 0.69 Absolute Eosinophils 0.16 Absolute Basophils 0.08 PT INR APTT 76.7 H D Sodium Potassium Chloride Carbon Dioxide Anion Gap BUN Creatinine Estimated GFR/1.73 m2 Glucose Calcium Magnesium Total Bilirubin AST ALT Alkaline Phosphatase Troponin I NT-Pro-B Natriuret Pep Total Protein Albumin TSH 13.35 H Free T4 0.93 COVID-19 Source SARS-CoV-2 (PCR) 06/13/21 06/13/21 06/13/21 04:32 04:32 00:54 WBC RBC Hgb Hct MCV MCH MCHC RDW Plt Count MPV Immature Gran % Neutrophils % Lymphocytes % Monocytes % Eosinophils % Basophils % Nucleated RBC % Absolute Neutrophils Absolute Lymphocytes Absolute Monocytes Absolute Eosinophils Absolute Basophils PT INR APTT Sodium 138 Potassium 4.0 Chloride 105 Carbon Dioxide 21.2 Anion Gap 11.8 H BUN 27 H Creatinine 0.9 Estimated GFR/1.73 m2 >= 60.00 Glucose 99 Calcium 8.9 Magnesium Total Bilirubin 0.4 AST 46 H ALT 38 Alkaline Phosphatase 78 Troponin I 1702 H* 946 H* NT-Pro-B Natriuret Pep Total Protein 7.2 Albumin 3.3 L TSH Free T4 COVID-19 Source SARS-CoV-2 (PCR) 06/12/21 06/12/21 06/12/21 23:57 22:31 22:31 WBC RBC Hgb Hct MCV MCH MCHC RDW Plt Count MPV Immature Gran % Neutrophils % Lymphocytes % Monocytes % Eosinophils % Basophils % Nucleated RBC % Absolute Neutrophils Absolute Lymphocytes Absolute Monocytes Absolute Eosinophils Absolute Basophils PT 11.1 H INR 1.1 APTT 26.8 Sodium Potassium Chloride Carbon Dioxide Anion Gap BUN Creatinine Estimated GFR/1.73 m2 Glucose Calcium Magnesium Total Bilirubin AST ALT Alkaline Phosphatase Troponin I NT-Pro-B Natriuret Pep 1147 H Total Protein Albumin TSH Free T4 COVID-19 Source Nasal/Nares SARS-CoV-2 (PCR) Negative 06/12/21 06/12/21 22:31 22:31 WBC 10.07 RBC 4.96 Hgb 14.7 Hct 47.4 H MCV 95.6 H MCH 29.6 MCHC 31.0 L RDW 14.2 Plt Count 321 MPV 10.5 Immature Gran % 0.3 Neutrophils % 75.2 Lymphocytes % 14.0 Monocytes % 8.5 Eosinophils % 1.3 Basophils % 0.7 Nucleated RBC % 0 Absolute Neutrophils 7.57 H Absolute Lymphocytes 1.41 Absolute Monocytes 0.86 H Absolute Eosinophils 0.13 Absolute Basophils 0.07 PT INR APTT Sodium 140 Potassium 3.7 Chloride 103 Carbon Dioxide 24.0 Anion Gap 13.0 H BUN 28 H Creatinine 1.1 H Estimated GFR/1.73 m2 52.16 Glucose 85 Calcium 9.4 Magnesium 2.3 Total Bilirubin 0.4 AST 43 H ALT 42 Alkaline Phosphatase 87 Troponin I 629 H* NT-Pro-B Natriuret Pep Total Protein 8.0 Albumin 3.7 TSH Free T4 COVID-19 Source SARS-CoV-2 (PCR) PFSH All Active Problems (Updated 06/13/21 @ 10:31 by Gale Trinh MD) Atypical chest pain (Acute) Right-sided heart failure (Chronic) PSVT (paroxysmal supraventricular tachycardia) (Acute) Acute non-ST elevation myocardial infarction (NSTEMI) (Acute) Infiltrate of lower lobe of left lung present on imaging study (Acute) Elevated troponin I level (Acute) Acute non-ST elevation myocardial infarction (NSTEMI) (Acute) Right upper quadrant abdominal pain (Acute) Restless legs syndrome (Acute) Rhinitis, nonallergic, chronic (Acute) COVID-19 (Acute) Left lateral epicondylitis (Acute) Arthritis of carpometacarpal (CMC) joint of left thumb (Acute) Left wrist pain (Acute) CHI (closed head injury) (Acute) Tendinitis (Acute) Non-ST elevation DE (NSTEMI) (Acute) Acute bronchitis (Acute) Chest pain (Acute) Migraine headache without aura (Acute) Lichen sclerosus (Acute) Migraine with aura and without status migrainosus, not intractable (Acute 02/24/16) Medical History Asthma Chronic heart failure with preserved ejection fraction Depression Endometriosis Insomnia Migraine MARYLOU (obstructive sleep apnea) Overweight Surgical History History of partial hysterectomy Family History Daughter Migraines Mother Hypertension Father Heart disease Social History Smoking/Tobacco Use Status: Never Smoking risk assessment performed?: Yes Alcohol Intake: never Drug use: Never Substance use type: does not use Do you feel safe at home: Yes Do you feel safe in your relationship?: Yes Female Reproductive History Menstrual Menopause type: surgical History History 2 Para 2 Hx # Term Pregnancies Multiple births Hx # Pregnancies Ectopic pregnancies AB induced Hx Number of Living Children AB spontaneous
--- NOTE | 2021-06-13 10:51 | PDOC.CMDIS ---
- If Service Date Differs Date of service: 06/13/21 Time of Service: 10:51 LACE Index Scoring Tool - Questions: Length of Stay (in days): 1 Acuity (Admit via E.D.?): Yes Comorbidities: Previous M.I., Congestive Heart Failure, Chronic Pulmonary Disease E.D. Visits: 5 - Answers: Total Score: 13 Risk of Readmission: High Risk Care Management Discharge Reason for Hospitalization: Acute NSTEMI, PSVT Discharge Plan: Transfer to [facility] via EMS arranged by nursing user support analyst supervisor. Patient/Family Education Needs: Review discharge plan and transfer instructions. ask me three. Services Needed at Discharge: Transportation (via EMS, arranged by nursing user support analyst supervisor.)
== END 2021-06-13 11:20 | disposition short-term general hospital (02) | DRG 281 ==
LOC: ER 06-13 00:39 → ICU 06-13 09:26
PROVIDERS: Internal Medicine; Admitting Provider Family Medicine; Emergency Provider Emergency Medicine; PCP Physician Assistant; Visit Provider Family Medicine
DX: I21.4 Non-ST elevation (NSTEMI) myocardial infarction (principal); I47.1 Supraventricular tachycardia; I50.32 Chronic diastolic (congestive) heart failure; I50.810 Right heart failure, unspecified; G25.81 Restless legs syndrome; G43.009 Migraine without aura, not intractable, without status migrainosus; J45.909 Unspecified asthma, uncomplicated; F32.A Depression, unspecified; G47.00 Insomnia, unspecified; E66.9 Obesity, unspecified; G47.33 Obstructive sleep apnea (adult) (pediatric); Z68.36 Body mass index [BMI] 36.0-36.9, adult; Z86.16 Personal history of COVID-19
CPT/HCPCS: 36415; 80053; 87635; 93005; 96365; 96366; 96376; 99284; 99285; 71045; 83735; 83880; 84439; 84443; 84484; 85025; 85610; 85730; 93010; 99235; 99291; J3490

== ENCOUNTER 2021-07-30 20:06 | Outpatient (REF) | payer OTHER, SELFPAY ==
[2021-07-30 19:12] LABS: Anion Gap 12.5 mmol/L (3-11); BUN 23 mg/dL (7-18); CO2 21.5 mmol/L (21.0-32.0); CREATININE 1.2 mg/dL (0.55-1.02); Calcium 9.4 mg/dL (8.5-10.1); Chloride 108 mmol/L (98-107); Estimated GFR 47.18 (mL/min/1.73m2); Glucose 113 mg/dL (74-106); NT-proBNP 1347 pg/mL (<300); Sodium 142 mmol/L (136-145)
== END 2021-07-30 20:07 | disposition home or self-care (01) ==
LOC: NCHCN 20:06
PROVIDERS: PCP Physician Assistant; Visit Provider Physician Assistant
DX: I50.9 Heart failure, unspecified (principal)
CPT/HCPCS: 80048; 83880

== ENCOUNTER 2021-08-13 17:24 | Outpatient (REF) | payer OTHER, SELFPAY ==
[2021-08-13 18:22] LABS: ESR 5 mm/hr (0-30)
[2021-08-13 18:44] LABS: FREE T4 0.82 ng/dL (0.76-1.46); TSH 2.96 uIU/mL (0.36-3.74)
== END 2021-08-13 17:25 | disposition home or self-care (01) ==
LOC: NCHCN 17:24
PROVIDERS: PCP Physician Assistant; Visit Provider Physician Assistant
DX: E07.81 Sick-euthyroid syndrome (principal); M25.50 Pain in unspecified joint
CPT/HCPCS: 85652; 84439; 84443

== ENCOUNTER 2021-12-30 07:28 | Emergency (ER) | payer OTHER, SELFPAY ==
[2021-12-30 07:31] VITALS: BP 127/70; PULSE 58; RESP 16; TEMP 36.6; O2SAT 96
--- NOTE | 2021-12-30 08:00 | DI.RAD_ITS ---
Exam(s) XR FOOT RT COMPLETE EXAM: XR FOOT RT COMPLETE CLINICAL HISTORY: pain swelling lateral foot, r/o fx. TECHNIQUE: 2D digital imaging was performed. COMPARISON: No exams were available for comparison FINDINGS: 3 views No evidence of acute fracture nor diastasis of the Lisfranc joint. Bone density normal. No osseous lesions nor erosions. No radiopaque foreign body. IMPRESSION: No acute osseous findings in the foot. However, please see separate ankle report for findings of sig nificance. DATA REPOSITORY: RADIATION DOSE DELIVERED:
--- NOTE | 2021-12-30 08:00 | DI.RAD_ITS ---
Exam(s) XR ANKLE RT COMPLETE EXAM: XR ANKLE RT COMPLETE CLINICAL HISTORY: twisted ankle, pain/swelling lateral, r/o fx. TECHNIQUE: 2D digital imaging was performed. COMPARISON: No exams were available for comparison FINDINGS: 3 views There is soft tissue swelling laterally. Is a partially corticated 4 x 3 millimeter ossified density located 5 millimeters below the lateral malleolus and immediately adjacent to the lateral aspect of the talus. This is possibly avulsed fragment. No widening of the ankle mortise. Talar dome unremar kable. Medial and posterior malleoli unremarkable. No osseous tarsal coalition IMPRESSION: 4 x 3 millimeter osteophytic density seen laterally as described above. This is possibly an avulsion fragment off the lateral aspect of the talus and possibly related to anterior talofibular ligament i njury. There is overlying soft tissue swelling. DATA REPOSITORY: RADIATION DOSE DELIVERED:
--- NOTE | 2021-12-30 08:05 | W.ED.GENAD ---
Discharge Plan Disposition Patient Disposition: HOME Condition: Stable Discharge Details Clinical Impression: Avulsion fracture of right talus Primary Care Provider: Polo Pearce ED Provider: Candelaria Qugiley Home Meds and New Rx's Prescriptions: Continued ropinirole 1 mg tablet 1 mg PO DIRECTED Rx Instructions: administer 1-3 hours before bedtime, and one at bed time trazodone 50 mg tablet 50 mg PO QHS PRN Rx Instructions: 1-2 tabs qhs aspirin 81 mg tablet,chewable 81 mg PO DAILY atorvastatin 80 mg tablet 80 mg PO QPM empagliflozin 10 mg tablet 10 mg PO DAILY lisinopril 2.5 mg tablet 2.5 mg PO DAILY Aimovig Autoinjector 140 mg/mL auto-injector 140 mg subcut QMONTH Qty: 1 11RF topiramate [Topamax] 100 mg tablet 100 mg PO QHS Qty: 90 3RF gabapentin 600 mg tablet 600 mg PO QHS Qty: 90 3RF fluticasone propionate [Flonase Allergy Relief] 9.9 ML spray,suspension 9.9 ml NS DAILY duloxetine [Cymbalta] 60 mg capsule,delayed release(DR/EC) 60 mg PO DAILY Qty: 30 2RF albuterol sulfate 90 mcg/actuation HFA aerosol inhaler 2 puff inhalation 6XD loratadine [Allergy Relief (loratadine)] 10 mg tablet 10 mg PO DAILY nitroglycerin 0.4 mg tablet, sublingual 0.4 mg sublingual Q5M PRN Rx Instructions: do not exceed 3 doses per episode furosemide [Lasix] 20 mg tablet 20 mg PO DAILY prochlorperazine maleate 5 mg tablet See Rx Instructions PO PRN PRN Rx Instructions: 1-2 orally as needed PRN; diclofenac sodium [Voltaren] 1 % gel 4 g topical ONCE Qty: 150 0RF Rx Instructions: apply to single knee, ankle, foot; for foot includes sole/toes/top of foot Dulera 200-5 mcg/actuation HFA aerosol inhaler INHALATION PRN PRN Label Comments: Inhale 2 inhalations by mouth twice daily Discharge Instructions Instructions: Avulsion Fracture (ED) Additional Instructions: Your x-rays today reveal a avulsion fracture in your right ankle which is a small chip fracture and may be associated with a ligament injury in your ankle. You can bear weight on your right leg as tolerated. Try to limit weightbearing and rest and elevate your right leg as much as possible. Take Tylenol as needed and directed for pain. Take the tramadol as needed and directed for pain not relieved with Tylenol. You have been placed on orthopedics follow-up list for reevaluation. You can call the orthopedics office on the number provided to schedule or confirm your follow-up appointment. Return immediately to the emergency department if you develop any worsening or new concerning symptoms. Referrals: Thiago Celestin MD [ [facility]YSICIAN] - Discharge Data Discharge Physician: Candelaria Quigley Medical Decision Making 51-year-old female presents with right ankle and foot pain after twisting her ankle this morning. She has edema and tenderness to the right lateral malleolus and tenderness overlying the right dorsal lateral foot. She is neurovascularly intact. No deformity. She declines medication for pain. Will refer for x-rays. X-rays noted a likely avulsion fracture of the talus and possible anterior talofibular ligament injury. Patient states she cannot use crutches. Case discussed with Dr. Celestin who recommends walking boot and weightbearing as tolerated. Tall walking boot placed. Patient placed on orthopedic follow-up list. Advised to rest, ice and elevate as much as possible. Usual and customary return precautions given prior to discharge. Medical Records Medical records reviewed: Yes I reviewed the patient's medical records. Imaging Data Radiologic Study: Radiologist's impression: XR ANKLE RT COMPLETE CLINICAL HISTORY: ? twisted ankle, pain/swelling lateral, r/o fx. ? TECHNIQUE:? 2D digital imaging was performed. COMPARISON:? No exams were available for comparison FINDINGS: 3 views There is soft tissue swelling laterally.? Is a partially corticated 4 x 3 millimeter ossified density located 5 millimeters below the lateral malleolus and immediately adjacent to the lateral aspect of the talus.? This is possibly avulsed fragment.? No widening of the ankle mortise.? Talar dome unremarkable.? Medial and posterior malleoli unremarkable.? No osseous tarsal coalition IMPRESSION: 4 x 3 millimeter osteophytic density seen laterally as described above.? This is possibly an avulsion fragment off the lateral aspect of the talus and possibly related to anterior talofibular ligament injury.? There is overlying soft tissue swelling. XR FOOT RT COMPLETE CLINICAL HISTORY: ? pain swelling lateral foot, r/o fx. ? TECHNIQUE:? 2D digital imaging was performed. COMPARISON:? No exams were available for comparison FINDINGS: 3 views No evidence of acute fracture nor diastasis of the Lisfranc joint.? Bone density normal.? No osseous lesions nor erosions.? No radiopaque foreign body. IMPRESSION: No acute osseous findings in the foot.? However, please see separate ankle report for findings of significance. HPI General Mode of arrival: ambulatory. Date/Time Provider Initiated Documentation: 12/30/21 07:35. Limitations to Documentation: no limitations. Information obtained by: patient. HPI Narrative: Patient is a 51-year-old female who presents with right ankle and foot pain after twisting her ankle with walking. Patient states she was walking when she inverted her ankle this morning. Patient is complaining of pain in her right lateral ankle and right dorsal lateral foot. She has not taken any medication for pain. She states she cannot take Tylenol as it causes her to feel wired and cannot take ibuprofen as it causes a migraine. Related Data Home Medications Medication Instructions Recorded Confirmed fluticasone propionate 50 9.9 ml NS DAILY 12/23/16 12/30/21 mcg/actuation nasal spray,suspension (Flonase Allergy Relief) ropinirole 1 mg tablet 1 mg PO DIRECTED 06/12/20 12/30/21 trazodone 50 mg tablet 50 mg PO QHS PRN 06/12/20 12/30/21 diclofenac sodium 1 % topical gel 4 g topical ONCE #150 grams 06/21/20 12/30/21 (Voltaren) duloxetine 60 mg capsule,delayed 60 mg PO DAILY #30 mg 08/19/20 12/30/21 release (Cymbalta) mometasone-formoterol HFA 200 inhalation PRN PRN 03/23/21 11/24/21 mcg-5 mcg/actuation aerosol inhaler (Dulera) albuterol sulfate 90 mcg/actuation 2 puff inhalation 6XD 05/30/21 12/30/21 aerosol inhaler loratadine 10 mg tablet (Allergy 10 mg PO DAILY 05/30/21 12/30/21 Relief (loratadine)) aspirin 81 mg chewable tablet 81 mg PO DAILY 06/10/21 12/30/21 atorvastatin 80 mg tablet 80 mg PO QPM 06/10/21 12/30/21 empagliflozin 10 mg tablet 10 mg PO DAILY 06/10/21 12/30/21 erenumab-aooe 140 mg/mL 140 mg subcut QMONTH #1 mL 06/10/21 12/30/21 subcutaneous auto-injector (Aimovig Autoinjector) lisinopril 2.5 mg tablet 2.5 mg PO DAILY 06/10/21 12/30/21 furosemide 20 mg tablet (Lasix) 20 mg PO DAILY 09/25/21 12/30/21 nitroglycerin 0.4 mg sublingual 0.4 mg sublingual Q5M PRN 09/25/21 12/30/21 tablet prochlorperazine maleate 5 mg See Rx Instructions PO PRN PRN 09/25/21 12/30/21 tablet gabapentin 600 mg tablet 600 mg PO QHS #90 tabs 11/24/21 12/30/21 topiramate 100 mg tablet (Topamax) 100 mg PO QHS #90 tab-caps 11/24/21 12/30/21 Previous Rx's Medication Instructions Recorded diclofenac sodium 1 % topical gel 4 g topical ONCE #150 grams 06/21/20 (Voltaren) duloxetine 60 mg capsule,delayed 60 mg PO DAILY #30 mg 08/19/20 release (Cymbalta) erenumab-aooe 140 mg/mL 140 mg subcut QMONTH #1 mL 06/10/21 subcutaneous auto-injector (Aimovig Autoinjector) gabapentin 600 mg tablet 600 mg PO QHS #90 tabs 11/24/21 topiramate 100 mg tablet (Topamax) 100 mg PO QHS #90 tab-caps 11/24/21 Allergies Allergy/AdvReac Type Severity Reaction Status Date / Time acetaminophen [From Tylenol] AdvReac Intermediate Unverified 12/30/21 07:35 clobetasol AdvReac Intermediate Skin Rash Verified 12/30/21 07:35 codeine AdvReac Mild Verified 12/30/21 07:35 ibuprofen AdvReac Unverified 12/30/21 07:35 environmental Allergy Mild Uncoded 12/30/21 07:35 General Stated Complaint: Orthopedic MIKAELA: 4 Review of Systems All systems reviewed & are unremarkable except as noted in HPI and below Constitutional Constitutional: Reports as per HPI, Denies chills and Denies fever(s) Eyes Eyes: Denies blurry vision ENT Ears, Nose, Mouth, and Throat: Denies dizziness, Denies sore throat and Denies throat swelling Cardiovascular Cardiovascular: Denies chest pain and Denies dyspnea Respiratory Respiratory: Denies cough and Denies dyspnea Gastrointestinal Gastrointestinal: Denies abdominal pain, Denies diarrhea and Denies vomiting Genitourinary Genitourinary: Denies hematuria and Denies dysuria Musculoskeletal Musculoskeletal: Denies back pain and Denies numbness Comments: R ankle/foot Integumentary/Breasts Skin/Breast: Denies lesions and Denies rash Neurologic Neurologic: Denies dizziness, Denies localized weakness and Denies numbness Allergic/Immunologic Allergic/Immunologic: Denies throat swelling PFSH All Active Problems (Updated 12/30/21 @ 09:02 by Candelaria Quigley DO) Avulsion fracture of right talus (Acute) Bilateral carpal tunnel syndrome (Acute) Paresthesia of hand, bilateral (Acute) Abnormal chest CT (Acute) Pulmonary hypertension (Acute) Atypical chest pain (Acute) PSVT (paroxysmal supraventricular tachycardia) (Acute) Acute non-ST elevation myocardial infarction (NSTEMI) (Acute) Right upper quadrant abdominal pain (Acute) Restless legs syndrome (Acute) Rhinitis, nonallergic, chronic (Acute) Tendinitis (Acute) Chest pain (Acute) Migraine headache without aura (Acute) Lichen sclerosus (Acute) Migraine with aura and without status migrainosus, not intractable (Acute 02/24/16) Medical History (Updated 12/30/21 @ 09:02 by Candelaria Quigley DO) Acute bronchitis Acute non-ST elevation myocardial infarction (NSTEMI) Arthritis of carpometacarpal (CMC) joint of left thumb Asthma [facility] (closed head injury) Chronic heart failure with preserved ejection fraction COVID-19 Depression Elevated troponin I level Endometriosis Infiltrate of lower lobe of left lung present on imaging study Insomnia Left lateral epicondylitis Left wrist pain Migraine Non-ST elevation VT (NSTEMI) MARYLOU (obstructive sleep apnea) Overweight Surgical History History of partial hysterectomy Family History Daughter Migraines Mother Hypertension Father Heart disease Social History Smoking/Tobacco Use Status: Never Smoking risk assessment performed?: Yes Alcohol Intake: never Drug use: Never Substance use type: does not use Do you feel safe at home: Yes Do you feel safe in your relationship?: Yes Female Reproductive History Menstrual Menopause type: surgical History History 2 Para 2 Hx # Term Pregnancies Multiple births Hx # Pregnancies Ectopic pregnancies AB induced Hx Number of Living Children AB spontaneous Exam Const General: cooperative, healthy appearing and no acute distress Orientation: alert, awake and oriented x3 HENMT Head: normal to inspection Mouth: oral mucosae normal Eyes General: appearance normal, both eyes and all related structures Neck Neck: normal visual inspection Resp Effort & Inspection: normal respiratory effort and able to speak in complete sentences Cardio Rate: regular rate Skin General skin exam: no rashes or lesions noted Neuro General: patient alert, patient awake and patient oriented x3 Motor: muscle tone normal throughout Extrem Ankle/foot/toe images: 1. Moderate edema and tenderness to R lateral malleolus. Tenderness R dorsolateral foot. No tenderness R medial malleolus. R DP/PT pulses intact. Pain with plantar and dorsiflexion. No deformity. Psych Appearance: grossly normal Affect: normal affect Course Vital Signs Vital signs: Vital Signs Temperature 97.9 F 12/30/21 07:31 Pulse 58 L 12/30/21 07:31 Respiratory Rate 16 12/30/21 07:31 Blood Pressure 127/70 12/30/21 07:31 Pulse Oximetry 96 12/30/21 07:31 Temperature 97.9 F 12/30/21 07:31 Temperature Source Oral 12/30/21 07:31 Pulse 58 L 12/30/21 07:31 Respiratory Rate 16 12/30/21 07:31 Respiratory Effort Non-Labored 12/30/21 07:49 Blood Pressure 127/70 12/30/21 07:31 Blood Pressure Position Sitting 12/30/21 07:31 Pulse Oximetry 96 12/30/21 07:31 Oxygen Delivery Method Room Air 12/30/21 07:31 Oxygen Flow Rate 0 12/30/21 07:31 Pain Level 6 12/30/21 07:59
== END 2021-12-30 09:30 | disposition home or self-care (01) ==
PROVIDERS: Emergency Provider Physician Assistant; PCP Physician Assistant
DX: S92.151A Displaced avulsion fracture (chip fracture) of right talus, initial encounter for closed fracture (principal); I25.2 Old myocardial infarction; J45.909 Unspecified asthma, uncomplicated; Z79.51 Long term (current) use of inhaled steroids; Z86.16 Personal history of COVID-19; X50.1XXA Overexertion from prolonged static or awkward postures, initial encounter; Y93.01 Activity, walking, marching and hiking
CPT/HCPCS: 99283; 73610; 73630; 99284

== ENCOUNTER 2021-12-30 16:00 | Emergency (ER) | payer OTHER, SELFPAY ==
[2021-12-30] VITALS (7 sets, daily range): BP systolic 86–112; BP diastolic 55–92; PULSE 46–58; RESP 11–18; TEMP 36; O2SAT 98
--- NOTE | 2021-12-30 15:45 | RT.EKG_ITS ---
APPROVED REPORT Exam: Resting ECG Reason for Exam: chest pain Patient Location: E HR:55 bpm ECG Measurements Heart Rate 55 AXIS OR 182 P 31 QRSd 99 QRS 52 QT 521 T 90 QTc 498 Conclusion Sinus bradycardia...rate< 60 Left atrial enlargement...P, P'>60mS, <-0.15mV V1 Consider anteroseptal infarct...Q >30mS, dimin R, V1-V2 Nonspecific repol abnormality, diffuse leads...ST dep, T flat/neg, ant/lat/inf. Sinus. Normal axis. Prolonged QT. Slight increase in ST depression in inferior and anterolateral lead s compared to previous EKG. No STEMI.
--- NOTE | 2021-12-30 16:30 | DI.CT_ITS ---
Exam(s) CT CHEST PE CTA EXAM: CT CHEST PE CTA CLINICAL HISTORY: chest pain, palpitations, sob, r/o PE. TECHNIQUE: Imaging Protocol: Axial CT angiography was performed with multi-slice acquisition and mu lti-planar and/or 3D reconstructions. CONTRAST MATERIAL: Intravenous: Omnipaque 350 Contrast volume:structured data in ml COMPARISON: CT CT CHEST PE CTA from 06/06/2021 FINDINGS: CT angiography of the chest was performed with intravenous infusion of 100 cc of Omnipaque 350. The heart is enlarged. There are coronary calcifications. There is a trace pericardial effusion. The lungs show mild diffuse ground-glass opacity most prominent in the dependent portions consistent with mild pulmonary edema period. No pleural effusion. Tracheobronchial tree appears intact. No evidence of pulmonary embolic disease. Thoracic aorta is of normal diameter, no thoracic aortic an eurysm or dissection, major branch vessels appear intact. No mediastinal or hilar adenopathy. Images obtained through the upper abdomen show unremarkable appearance of the visualized portions of the liver, spleen, pancreas, adrenals, and kidneys. IMPRESSION: Probable mild CHF. No evidence of pulmonary embolic disease. RADIATION DOSE DELIVERED: 534.36mGy.cm Total DLP 534.36mGy.cm Total DLP !Error CTDIvol DATA REPOSITORY: All CT scans at this facility are submitted to the National Radiology Data Registry (NRDR) Dose Index Registry (DIR) with the [employer] ([employer]). RADIATION OPTIMIZATION: All CT scans at this facility use at least one of these dose optimization te chniques: automated exposure control; mA and/or kV adjustment per patient size (includes targeted exa ms where dose is matched to clinical indication); or iterative reconstruction.
--- NOTE | 2021-12-30 16:33 | W.ED.GENAD ---
Discharge Plan Disposition Patient Disposition: [facility] Condition: Serious Discharge Details Clinical Impression: NSTEMI (non-ST elevated myocardial infarction) Primary Care Provider: Polo Pearce ED Provider: Candelaria Quigley Home Meds and New Rx's Prescriptions: No Action ropinirole 1 mg tablet 1 mg PO DIRECTED Rx Instructions: administer 1-3 hours before bedtime, and one at bed time trazodone 50 mg tablet 50 mg PO QHS PRN Rx Instructions: 1-2 tabs qhs aspirin 81 mg tablet,chewable 81 mg PO DAILY atorvastatin 80 mg tablet 80 mg PO QPM empagliflozin 10 mg tablet 10 mg PO DAILY lisinopril 2.5 mg tablet 2.5 mg PO DAILY Aimovig Autoinjector 140 mg/mL auto-injector 140 mg subcut QMONTH Qty: 1 11RF topiramate [Topamax] 100 mg tablet 100 mg PO QHS Qty: 90 3RF gabapentin 600 mg tablet 600 mg PO QHS Qty: 90 3RF fluticasone propionate [Flonase Allergy Relief] 9.9 ML spray,suspension 9.9 ml NS DAILY duloxetine [Cymbalta] 60 mg capsule,delayed release(DR/EC) 60 mg PO DAILY Qty: 30 2RF albuterol sulfate 90 mcg/actuation HFA aerosol inhaler 2 puff inhalation 6XD loratadine [Allergy Relief (loratadine)] 10 mg tablet 10 mg PO DAILY nitroglycerin 0.4 mg tablet, sublingual 0.4 mg sublingual Q5M PRN Rx Instructions: do not exceed 3 doses per episode furosemide [Lasix] 20 mg tablet 20 mg PO DAILY prochlorperazine maleate 5 mg tablet See Rx Instructions PO PRN PRN Rx Instructions: 1-2 orally as needed PRN; diclofenac sodium [Voltaren] 1 % gel 4 g topical ONCE Qty: 150 0RF Rx Instructions: apply to single knee, ankle, foot; for foot includes sole/toes/top of foot Dulera 200-5 mcg/actuation HFA aerosol inhaler INHALATION PRN PRN Label Comments: Inhale 2 inhalations by mouth twice daily Discharge Data Discharge Date/Time-TO BE ENTERED AT DEPARTURE: 12/30/21 22:13 Medical Decision Making 2885 -- 51-year-old female with a history of obesity, pulmonary hypertension, NSTEMI, depression and CHF resulting from COVID-19 illness in March 2021 presents for 30-minute episode of palpitations, chest pain, shortness of breath, nausea and dizziness that has since resolved. Patient was seen here earlier today after a fall and diagnosed with a right ankle avulsion fracture and placed in a walking boot. Blood pressure 86/55 on arrival, now 94/56. Review of records notes that she is normally hypotensive, SBP 90s-100s. Heart rate 55 which appears her baseline. EKG notes a rate of 55, sinus with slight increase in ST depression in inferior and anterolateral leads compared to previous EKG but no STEMI. Will refer for screening labs, CT chest. 174 -- Labs reviewed. Troponin elevated at 581. Normal white blood cell count. Normal electrolytes. CT chest negative for PE. 1800 -- Case discussed with [facility] cardiology Dr. Lovell who accepts patient for transfer. Accepting physician Dr. Jimenez. She may have had an episode of SVT or AVRT. Agrees with plan for heparin bolus and drip, Plavix 600 mg. Medical Records Medical records reviewed: Yes I reviewed the patient's medical records. Imaging Data Radiologic Study: Radiologist's impression: CTA Chest With Contrast Exam date and time: 12/30/2021 5:23 PM Age: 51 years old Clinical indication: Other: Chest pain, palpitations, SOB, R/O pe TECHNIQUE: Imaging protocol: Computed tomographic angiography of the chest with contrast. 3D rendering (Not supervised by radiologist): MIP and/or 3D reconstructed images were created by the technologist. Contrast material: OMNIPAQUE 350; Contrast volume: 100 ml; Contrast route: INTRAVENOUS (IV);? COMPARISON: CT CHEST PE CTA 06/06/2021 3:50 PM FINDINGS: Pulmonary arteries: No evidence of pulmonary embolus to the segmental level. Aorta: No aneurysm of the aorta. No dissection of the aorta. Lungs: Ground-glass opacities throughout the lung teran may represent edema or atelectasis. Pleural spaces: Unremarkable. No pneumothorax. No pleural effusion. Heart: Cardiomegaly. Coronary artery calcifications may indicate coronary artery disease. Small pericardial effusion Lymph nodes: Pathologic the preaortic node 21 x 11 mm Bones/joints: Unremarkable. No acute fracture. Soft tissues: Unremarkable. IMPRESSION: 1. No evidence of pulmonary embolus to the segmental level. 2. No aneurysm of the aorta. 3. No dissection of the aorta. 4. Ground-glass opacities throughout the lung teran may represent edema or atelectasis. Lab Data Lab results reviewed: Yes I reviewed the patient's lab results. Labs: Laboratory Tests Range/Units 12/30/21 12/30/21 12/30/21 16:00 16:00 16:00 WBC (4.4-10.8) 10^3/uL 8.87 RBC (3.93-5.22) 10^6/uL 4.66 Hgb (11.2-15.7) g/dL 14.5 Hct (36.0-46.0) % 44.0 MCV (80-95) fL 94 MCH (27.0-33.0) pg 31.1 MCHC (32.0-36.0) % 33.0 RDW (11.7-14.6) % 12.7 Plt Count (130-400) 10^3/uL 248 MPV (8.0-11.0) fL 11.4 H Immature Gran % 0.2 Neutrophils % 63.7 Lymphocytes % 24.5 Monocytes % 7.7 Eosinophils % 3.2 Basophils % 0.7 Nucleated RBC % (0.0-0.3) % 0.0 Absolute Neutrophils (1.2-6.7) 10^3/uL 5.66 Absolute Lymphocytes (1.2-3.4) 10^3/uL 2.17 Absolute Monocytes (0.1-0.8) 10^3/uL 0.68 Absolute Eosinophils (0.0-0.7) 10^3/uL 0.28 Absolute Basophils (0.0-0.2) 10^3/uL 0.06 PT (9.3-11.0) sec 10.1 INR (0.9-1.1) 1.0 APTT (21.0-27.5) sec 25.6 Sodium (136-145) mmol/L 142 Potassium (3.5-5.1) mmol/L 3.9 Chloride (98-107) mmol/L 108 H Carbon Dioxide (21.0-32.0) mmol/L 24.1 Anion Gap (3-11) mmol/L 9.9 BUN (7-18) mg/dL 28 H Creatinine (0.55-1.02) mg/dL 1.2 H Est GFR (CKD-EPI 2020) (mL/min/1.73m2) 54.46 Glucose (74-106) mg/dL 78 Calcium (8.5-10.1) mg/dL 9.0 Magnesium (1.8-2.4) mg/dL 2.1 Total Bilirubin (0.2-1.0) mg/dL 0.4 AST (15-37) U/L 32 ALT (14-59) U/L 36 Alkaline Phosphatase (46-116) U/L 63 Troponin I (<or=60) ng/L 581 H* Total Protein (6.4-8.2) g/dL 7.8 Albumin (3.4-5.0) g/dL 4.0 COVID-19 Source SARS-CoV-2 (PCR) (Negative) Range/Units 12/30/21 16:40 WBC (4.4-10.8) 10^3/uL RBC (3.93-5.22) 10^6/uL Hgb (11.2-15.7) g/dL Hct (36.0-46.0) % MCV (80-95) fL MCH (27.0-33.0) pg MCHC (32.0-36.0) % RDW (11.7-14.6) % Plt Count (130-400) 10^3/uL MPV (8.0-11.0) fL Immature Gran % Neutrophils % Lymphocytes % Monocytes % Eosinophils % Basophils % Nucleated RBC % (0.0-0.3) % Absolute Neutrophils (1.2-6.7) 10^3/uL Absolute Lymphocytes (1.2-3.4) 10^3/uL Absolute Monocytes (0.1-0.8) 10^3/uL Absolute Eosinophils (0.0-0.7) 10^3/uL Absolute Basophils (0.0-0.2) 10^3/uL PT (9.3-11.0) sec INR (0.9-1.1) APTT (21.0-27.5) sec Sodium (136-145) mmol/L Potassium (3.5-5.1) mmol/L Chloride (98-107) mmol/L Carbon Dioxide (21.0-32.0) mmol/L Anion Gap (3-11) mmol/L BUN (7-18) mg/dL Creatinine (0.55-1.02) mg/dL Est GFR (CKD-EPI 2020) (mL/min/1.73m2) Glucose (74-106) mg/dL Calcium (8.5-10.1) mg/dL Magnesium (1.8-2.4) mg/dL Total Bilirubin (0.2-1.0) mg/dL AST (15-37) U/L ALT (14-59) U/L Alkaline Phosphatase (46-116) U/L Troponin I (<or=60) ng/L Total Protein (6.4-8.2) g/dL Albumin (3.4-5.0) g/dL COVID-19 Source Nasal/Nares SARS-CoV-2 (PCR) (Negative) Negative ECG Data Attestation: I personally reviewed and interpreted this ECG (s) as follows: Interpretation: rate of 44, sinus, 1mm ST depression in inferior and anterolateral leads, more pronounced compared to previous, no stemi. HPI General Mode of arrival: ambulatory. Date/Time Provider Initiated Documentation: 12/30/21 17:01. Limitations to Documentation: no limitations. Information obtained by: patient. HPI Narrative: Patient is a 51-year-old female with a history of hypertension, obesity, NSTEMI, CHF, migraine, asthma who presents for a 30-minute episode of palpitations, shortness of breath, nausea, dizziness and chest pain that started while at work. Patient states she was cleaning one of her rooms at work when she started with her symptoms. She states she felt a pounding in her neck and and chest followed by shortness of breath, nausea, and dizziness. She states she took 4 baby aspirin and nitro and applied oxygen while she was at work and had complete resolution of her symptoms. She was seen here earlier today after a fall and twisted her ankle resulting in an avulsion fracture with possible ligament injury. She had a walking boot placed and has been weightbearing as tolerated. Related Data Home Medications Medication Instructions Recorded Confirmed fluticasone propionate 50 9.9 ml NS DAILY 12/23/16 12/30/21 mcg/actuation nasal spray,suspension (Flonase Allergy Relief) ropinirole 1 mg tablet 1 mg PO DIRECTED 06/12/20 12/30/21 trazodone 50 mg tablet 50 mg PO QHS PRN 06/12/20 12/30/21 diclofenac sodium 1 % topical gel 4 g topical ONCE #150 grams 06/21/20 12/30/21 (Voltaren) duloxetine 60 mg capsule,delayed 60 mg PO DAILY #30 mg 08/19/20 12/30/21 release (Cymbalta) mometasone-formoterol HFA 200 inhalation PRN PRN 03/23/21 11/24/21 mcg-5 mcg/actuation aerosol inhaler (Dulera) albuterol sulfate 90 mcg/actuation 2 puff inhalation 6XD 05/30/21 12/30/21 aerosol inhaler loratadine 10 mg tablet (Allergy 10 mg PO DAILY 05/30/21 12/30/21 Relief (loratadine)) aspirin 81 mg chewable tablet 81 mg PO DAILY 06/10/21 12/30/21 atorvastatin 80 mg tablet 80 mg PO QPM 06/10/21 12/30/21 empagliflozin 10 mg tablet 10 mg PO DAILY 06/10/21 12/30/21 erenumab-aooe 140 mg/mL 140 mg subcut QMONTH #1 mL 06/10/21 12/30/21 subcutaneous auto-injector (Aimovig Autoinjector) lisinopril 2.5 mg tablet 2.5 mg PO DAILY 06/10/21 12/30/21 furosemide 20 mg tablet (Lasix) 20 mg PO DAILY 09/25/21 12/30/21 nitroglycerin 0.4 mg sublingual 0.4 mg sublingual Q5M PRN 09/25/21 12/30/21 tablet prochlorperazine maleate 5 mg See Rx Instructions PO PRN PRN 09/25/21 12/30/21 tablet gabapentin 600 mg tablet 600 mg PO QHS #90 tabs 11/24/21 12/30/21 topiramate 100 mg tablet (Topamax) 100 mg PO QHS #90 tab-caps 11/24/21 12/30/21 Previous Rx's Medication Instructions Recorded diclofenac sodium 1 % topical gel 4 g topical ONCE #150 grams 06/21/20 (Voltaren) duloxetine 60 mg capsule,delayed 60 mg PO DAILY #30 mg 08/19/20 release (Cymbalta) erenumab-aooe 140 mg/mL 140 mg subcut QMONTH #1 mL 06/10/21 subcutaneous auto-injector (Aimovig Autoinjector) gabapentin 600 mg tablet 600 mg PO QHS #90 tabs 11/24/21 topiramate 100 mg tablet (Topamax) 100 mg PO QHS #90 tab-caps 11/24/21 Allergies Allergy/AdvReac Type Severity Reaction Status Date / Time acetaminophen [From Tylenol] AdvReac Intermediate Unverified 12/30/21 07:35 clobetasol AdvReac Intermediate Skin Rash Verified 12/30/21 07:35 codeine AdvReac Mild Verified 12/30/21 07:35 ibuprofen AdvReac Unverified 12/30/21 07:35 environmental Allergy Mild Uncoded 12/30/21 07:35 General Stated Complaint: Chest Pain MIKAELA: 3 Review of Systems All systems reviewed & are unremarkable except as noted in HPI and below Constitutional Constitutional: Reports as per HPI, Denies chills and Denies fever(s) Eyes Eyes: Denies blurry vision ENT Ears, Nose, Mouth, and Throat: Denies dizziness, Denies sore throat and Denies throat swelling Cardiovascular Cardiovascular: Reports chest pain, Reports palpitations and Reports dyspnea Respiratory Respiratory: Denies cough and Reports dyspnea Gastrointestinal Gastrointestinal: Denies abdominal pain, Denies diarrhea, Reports nausea and Denies vomiting Genitourinary Genitourinary: Denies hematuria and Denies dysuria Musculoskeletal Musculoskeletal: Denies back pain and Denies numbness Integumentary/Breasts Skin/Breast: Denies lesions and Denies rash Neurologic Neurologic: Denies dizziness, Denies localized weakness and Denies numbness Endocrine Endocrine: Reports palpitations Allergic/Immunologic Allergic/Immunologic: Denies throat swelling PFSH All Active Problems (Updated 12/30/21 @ 17:57 by Candelaria Quigley DO) Avulsion fracture of right talus (Acute) NSTEMI (non-ST elevated myocardial infarction) (Acute) Bilateral carpal tunnel syndrome (Acute) Paresthesia of hand, bilateral (Acute) Abnormal chest CT (Acute) Pulmonary hypertension (Acute) Atypical chest pain (Acute) PSVT (paroxysmal supraventricular tachycardia) (Acute) Acute non-ST elevation myocardial infarction (NSTEMI) (Acute) Right upper quadrant abdominal pain (Acute) Restless legs syndrome (Acute) Rhinitis, nonallergic, chronic (Acute) Tendinitis (Acute) Chest pain (Acute) Migraine headache without aura (Acute) Lichen sclerosus (Acute) Migraine with aura and without status migrainosus, not intractable (Acute 02/24/16) Medical History (Updated 12/30/21 @ 17:57 by Candelaria Quigley DO) Acute bronchitis Acute non-ST elevation myocardial infarction (NSTEMI) Arthritis of carpometacarpal (CMC) joint of left thumb Asthma CHI (closed head injury) Chronic heart failure with preserved ejection fraction COVID-19 Depression Elevated troponin I level Endometriosis Infiltrate of lower lobe of left lung present on imaging study Insomnia Left lateral epicondylitis Left wrist pain Migraine Non-ST elevation WA (NSTEMI) MARYLOU (obstructive sleep apnea) Overweight Surgical History History of partial hysterectomy Family History Daughter Migraines Mother Hypertension Father Heart disease Social History Smoking/Tobacco Use Status: Never Smoking risk assessment performed?: Yes Alcohol Intake: never Drug use: Never Substance use type: does not use Do you feel safe at home: Yes Do you feel safe in your relationship?: Yes Female Reproductive History Menstrual Menopause type: surgical History History 2 Para 2 Hx # Term Pregnancies Multiple births Hx # Pregnancies Ectopic pregnancies AB induced Hx Number of Living Children AB spontaneous Exam Const General: cooperative, healthy appearing and no acute distress HENMT Head: normal to inspection Face and sinus: normal facial exam Eyes General: appearance normal, both eyes and all related structures Pupils: PERRL EOM: EOM intact bilaterally Neck Neck: normal visual inspection and No submandibular swelling Lymphatic: no lymphadenopathy noted Chest Chest: normal inspection of the chest and no tenderness Resp Effort & Inspection: normal respiratory effort and able to speak in complete sentences Auscultation: clear to auscultation bilaterally Cardio Rate: bradycardic Rhythm: regular rhythm GI Inspection: normal to inspection Palpation: soft, not firm, not rigid and nontender Auscultation: hypoactive bowel sounds Back/Spine/Pelvis Thoracic/Lumbar Spine: thoracic and lumbar spine normal to inspection Pelvis: no pain with anterior-posterior compression Skin General skin exam: no rashes or lesions noted Neuro General: patient alert, patient awake and patient oriented x3 Cognition: normal cognition Speech: speech normal Motor: muscle tone normal throughout Sensory Exam: no sensory deficits noted Extrem General: normal to inspection, full ROM, capillary refill normal, no calf tenderness bilaterally and no edema Other: R lower extremity in tall walking boot Psych Appearance: grossly normal Mental Status: mental status grossly normal Speech and Movement: speech and movement normal Affect: normal affect Course Vital Signs Vital signs: Vital Signs Temperature 96.8 F L 12/30/21 16:02 Pulse 55 L 12/30/21 16:02 Respiratory Rate 15 12/30/21 16:02 Blood Pressure 86/55 L 12/30/21 16:02 Pulse Oximetry 98 12/30/21 16:02 Temperature 96.8 F L 12/30/21 16:02 Temperature Source Tympanic 12/30/21 16:02 Pulse 55 L 12/30/21 16:02 Respiratory Rate 15 12/30/21 16:02 Respiratory Effort 12/30/21 16:10 Respiratory Depth Normal 12/30/21 16:10 Respiratory Pattern Normal 12/30/21 16:10 Blood Pressure 86/55 L 12/30/21 16:02 Blood Pressure Position Supine 12/30/21 16:02 Pulse Oximetry 98 12/30/21 16:02 Oxygen Delivery Method Room Air 12/30/21 16:02 Oxygen Flow Rate 0 12/30/21 16:02 Pain Level 0 12/30/21 16:02
[2021-12-30 16:34] LABS: Abs Immature Grans 0.02 10^3/uL (0.0-0.06); Absolute Basophil Count 0.06 10^3/uL (0.0-0.2); Absolute Eosinophil Count 0.28 10^3/uL (0.0-0.7); Absolute Lymphocyte Count 2.17 10^3/uL (1.2-3.4); Absolute Monocyte Count 0.68 10^3/uL (0.1-0.8); Absolute Neutrophil Count 5.66 10^3/uL (1.2-6.7); Basophils % 0.7; Eosinophils % 3.2; HGB 14.5 g/dL (11.2-15.7); Immature Grans % 0.2; Lymphocytes % 24.5; MCH 31.1 pg (27.0-33.0); MCV 94 fL (80-95); MPV 11.4 fL (8.0-11.0); Monocytes % 7.7; Neutrophils % 63.7; Platelet Count 248 10^3/uL (130-400); RBC 4.66 10^6/uL (3.93-5.22); RDW 12.7 % (11.7-14.6); RDW-SD 43.8 fL; WBC 8.87 10^3/uL (4.4-10.8)
[2021-12-30 16:46] LABS: Source Nasal/Nares
[2021-12-30 16:55] LABS: ALT 36 U/L (14-59); AST 32 U/L (15-37); Alkaline Phosphatase 63 U/L (46-116); Anion Gap 9.9 mmol/L (3-11); BUN 28 mg/dL (7-18); Bilirubin, Total 0.4 mg/dL (0.2-1.0); CO2 24.1 mmol/L (21.0-32.0); CREATININE 1.2 mg/dL (0.55-1.02); Chloride 108 mmol/L (98-107); Estimated GFR 54.46 (mL/min/1.73m2); Glucose 78 mg/dL (74-106); Magnesium 2.1 mg/dL (1.8-2.4); Potassium 3.9 mmol/L (3.5-5.1); Sodium 142 mmol/L (136-145); Total Protein 7.8 g/dL (6.4-8.2)
[2021-12-30 16:57] LABS: Troponin I 581 ng/L (<or=60)
[2021-12-30] MEDS: Normal Saline 1,000 ML 1000 ML IV (17:12)
[2021-12-30 17:18] LABS: COVID-19 PCR Negative (Negative)
[2021-12-30] MEDS: Omnipaque 350 MG/ML 500 ML BTL-Imaging package 100 ML IJ (17:28)
[2021-12-30] MEDS: Normal Saline Flush 10 ML SYR IVP (17:29)
--- NOTE | 2021-12-30 18:07 | DI.VRAD_ITS ---
PROCEDURE INFORMATION: Exam: CTA Chest With Contrast Exam date and time: 12/30/2021 5:23 PM Age: 51 years old Clinical indication: Other: Chest pain, palpitations, SOB, R/O pe TECHNIQUE: Imaging protocol: Computed tomographic angiography of the chest with contrast. 3D rendering (Not supervised by radiologist): MIP and/or 3D reconstructed images were created by the technologist. Contrast material: OMNIPAQUE 350; Contrast volume: 100 ml; Contrast route: INTRAVENOUS (IV); COMPARISON: CT CHEST PE CTA 06/06/2021 3:50 PM FINDINGS: Pulmonary arteries: No evidence of pulmonary embolus to the segmental level. Aorta: No aneurysm of the aorta. No dissection of the aorta. Lungs: Ground-glass opacities throughout the lung teran may represent edema or atelectasis. Pleural spaces: Unremarkable. No pneumothorax. No pleural effusion. Heart: Cardiomegaly. Coronary artery calcifications may indicate coronary artery disease. Small pericardial effusion Lymph nodes: Pathologic the preaortic node 21 x 11 mm Bones/joints: Unremarkable. No acute fracture. Soft tissues: Unremarkable. IMPRESSION: 1. No evidence of pulmonary embolus to the segmental level. 2. No aneurysm of the aorta. 3. No dissection of the aorta. 4. Ground-glass opacities throughout the lung teran may represent edema or atelectasis. Dictated and Authenticated by: Louann Reynolds MD. Ordering:DENNY Gaona MD
[2021-12-30] MEDS: Clopidogrel 300 MG TAB 600 MG PO (18:16)
[2021-12-30] MEDS: Heparin 5,000 UNITS/ML VIAL 5000 UNITS (18:16)
[2021-12-30 18:17] LABS: PTT Activated 25.6 sec (21.0-27.5); Prothrombin Time 10.1 sec (9.3-11.0)
--- NOTE | 2021-12-30 18:30 | RT.EKG_ITS ---
APPROVED REPORT Exam: Resting ECG Reason for Exam: chest pain Patient Location: E HR:53 bpm ECG Measurements Heart Rate [address] 195 P 55 QRSd 95 QRS 58 QT 449 T [id number] QTc 421 Conclusion Sinus bradycardia...rate< 60 Probable left atrial enlargement...P >50mS, <-0.10mV V1 Consider anteroseptal infarct...Q >30mS, dimin R, V1-V2 Nonspecific repol abnormality, diffuse leads...ST dep, T flat/neg, ant/lat/inf. Sinus. Normal axis. 1mm ST depression slightly more pronounced compared to previous EKG. No STEMI. I have reviewed and interpreted ECG and agree with software generated interpretation.
[2021-12-30 22:08] LABS: Troponin I 483 ng/L (<or=60)
== END 2021-12-30 22:13 | disposition short-term general hospital (02) ==
LOC: ER 18:26
PROVIDERS: Emergency Provider Physician Assistant; PCP Physician Assistant
DX: I21.4 Non-ST elevation (NSTEMI) myocardial infarction (principal); I11.0 Hypertensive heart disease with heart failure; I50.32 Chronic diastolic (congestive) heart failure; Z86.16 Personal history of COVID-19
CPT/HCPCS: 71275; 80053; 87635; 93005; 96361; 96365; 99285; 83735; 84484; 85025; 85610; 85730; 93010; J1644

== ENCOUNTER 2022-01-07 13:54 | Outpatient (CLI) | payer OTHER, SELFPAY ==
--- NOTE | 2022-01-07 13:30 | DI.RAD_ITS ---
Exam(s) XR ANKLE RT COMPLETE EXAM: XR ANKLE RT COMPLETE CLINICAL HISTORY: R ankle fx. TECHNIQUE: 2D digital imaging was performed. Three views. COMPARISON: CR XR ANKLE RT COMPLETE from 12/30/2021 FINDINGS: BONES: No change in position of small fracture fragment at the lateral border of the talus. No new a bnormalities. No bony destructive lesion is seen. JOINTS: The ankle mortise is normally aligned. SOFT TISSUE: Swelling beneath the lateral malleolus. IMPRESSION: No change avulsion fracture lateral talus. DATA REPOSITORY: RADIATION DOSE DELIVERED:
== END 2022-01-07 13:55 | disposition home or self-care (01) ==
LOC: DIORS 13:54
PROVIDERS: PCP Physician Assistant; Referring Provider Physician Assistant; Visit Provider Physician Assistant
DX: S92.151D Displaced avulsion fracture (chip fracture) of right talus, subsequent encounter for fracture with routine healing (principal); X58.XXXD Exposure to other specified factors, subsequent encounter
CPT/HCPCS: 73610

== ENCOUNTER 2022-01-26 16:16 | Outpatient (REF) | payer OTHER, SELFPAY ==
[2022-01-26 18:56] LABS: Anion Gap 11.1 mmol/L (3-11); BUN 26 mg/dL (7-18); CO2 22.9 mmol/L (21.0-32.0); CREATININE 1.1 mg/dL (0.55-1.02); Calcium 9.2 mg/dL (8.5-10.1); Chloride 105 mmol/L (98-107); Estimated GFR 60.46 (mL/min/1.73m2); Glucose 103 mg/dL (74-106); Potassium 4.2 mmol/L (3.5-5.1); Sodium 139 mmol/L (136-145)
== END 2022-01-26 16:17 | disposition home or self-care (01) ==
LOC: NCHCN 16:16
PROVIDERS: PCP Physician Assistant; Visit Provider Physician Assistant
DX: I50.9 Heart failure, unspecified (principal)
CPT/HCPCS: 80048

== ENCOUNTER 2022-02-11 13:59 | Outpatient (CLI) | payer OTHER, SELFPAY ==
--- NOTE | 2022-02-11 13:45 | DI.RAD_ITS ---
Exam(s) XR ANKLE RT COMPLETE EXAM: XR ANKLE RT COMPLETE CLINICAL HISTORY: RIGHT TALUS FX F/U TECHNIQUE: COMPARISON: No exams were available for comparison FINDINGS: Three views were obtained. Previously noted fracture of the lateral aspect of the talus is minimally visible on today's examination. No other change seen. IMPRESSION: RADIATION DOSE DELIVERED: Total DLP
== END 2022-02-11 14:00 | disposition home or self-care (01) ==
LOC: DIORS 13:59
PROVIDERS: PCP Physician Assistant; Referring Provider Physician Assistant; Visit Provider Student in an Organized Health Care Education/Training Program
DX: S92.151D Displaced avulsion fracture (chip fracture) of right talus, subsequent encounter for fracture with routine healing (principal); X58.XXXD Exposure to other specified factors, subsequent encounter
CPT/HCPCS: 73610

== ENCOUNTER 2022-03-07 14:22 | Emergency (ER) | payer OTHER, SELFPAY ==
[2022-03-07] VITALS (10 sets, daily range): BP systolic 94–109; BP diastolic 40–50; PULSE 46–57; RESP 18–20; TEMP 36.4; O2SAT 96–98
--- NOTE | 2022-03-07 14:15 | RT.EKG_ITS ---
APPROVED REPORT Exam: Resting ECG Reason for Exam: SOB Patient Location: E HR:51 bpm ECG Measurements Heart Rate 51 AXIS MO 175 P 37 QRSd 90 QRS 13 QT 517 T -9 QTc 478 Conclusion Sinus bradycardia...rate< 60 Probable left atrial enlargement...P >50mS, <-0.10mV V1 Probable inferior infarct, age indeterminate...Q>35mS, T neg, II III aVF Consider anteroseptal infarct...Q >30mS, dimin R, V1-V2 sinus rhythm, normal axis, normal intervals, subtle st depressions V3-V6 unchanged from prior
--- NOTE | 2022-03-07 14:45 | DI.RAD_ITS ---
Exam(s) XR PORTABLE CHEST AP EXAM: XR PORTABLE CHEST AP CLINICAL HISTORY: chest pain, hx of chf TECHNIQUE: 2D digital imaging was performed. COMPARISON: CT CT CHEST PE CTA from 12/30/2021 FINDINGS: Leads overlie the chest. LUNGS: Clear. No pleural abnormality seen. HEART: Normal size. AORTA: Normal diameter. BONES: Old right clavicle fracture Soft tissues: Unremarkable. IMPRESSION: No acute findings. DATA REPOSITORY: RADIATION DOSE DELIVERED:
--- NOTE | 2022-03-07 15:03 | ED.GENADUL_ITS ---
Discharge Plan Discharge Details Chief Complaint: Chest Pain Primary Care Provider: Polo Pearce ED Provider: Antonio Sanchez Home Meds and New Rx's Prescriptions: No Action ropinirole 1 mg tablet 1 mg PO DIRECTED Rx Instructions: administer 1-3 hours before bedtime, and one at bed time trazodone 50 mg tablet 50 mg PO QHS PRN Rx Instructions: 1-2 tabs qhs spironolactone 25 mg tablet 25 mg PO DAILY atorvastatin 80 mg tablet 80 mg PO QPM empagliflozin 10 mg tablet 10 mg PO DAILY Aimovig Autoinjector 140 mg/mL auto-injector 140 mg subcut QMONTH Qty: 1 11RF topiramate [Topamax] 100 mg tablet 100 mg PO QHS Qty: 90 3RF gabapentin 600 mg tablet 600 mg PO QHS Qty: 90 3RF fluticasone propionate [Flonase Allergy Relief] 9.9 ML spray,suspension 9.9 ml NS DAILY duloxetine [Cymbalta] 60 mg capsule,delayed release(DR/EC) 60 mg PO DAILY Qty: 30 2RF albuterol sulfate 90 mcg/actuation HFA aerosol inhaler 2 puff inhalation 6XD loratadine [Allergy Relief (loratadine)] 10 mg tablet 10 mg PO DAILY nitroglycerin 0.4 mg tablet, sublingual 0.4 mg sublingual Q5M PRN Rx Instructions: do not exceed 3 doses per episode furosemide [Lasix] 20 mg tablet 20 mg PO DAILY prochlorperazine maleate 5 mg tablet See Rx Instructions PO PRN PRN Rx Instructions: 1-2 orally as needed PRN; diclofenac sodium [Voltaren] 1 % gel 4 g topical ONCE Qty: 150 0RF Rx Instructions: apply to single knee, ankle, foot; for foot includes sole/toes/top of foot Dulera 200-5 mcg/actuation HFA aerosol inhaler INHALATION PRN PRN Label Comments: Inhale 2 inhalations by mouth twice daily Medical Decision Making 51-year-old female history of SVT, pulmonary hypertension, possible CHF presents with chest pain fatigue headache and body aches, patient is afebrile nontoxic normotensive normal sinus rhythm on EKG slight depressions of ST segments laterally and subtle ST elevation in lead III. Constellation of headache body ache and fatigue consistent more with viral syndrome however given patient's history must consider ACS versus CHF exacerbation versus electrolyte abnormality versus less likely pneumonia. Will obtain basic labs troponin BNP chest x-ray EKG. Will load with aspirin. Will swab for COVID flu RSV 20: 49 patient resting comfortably feeling better. Patient does have an elevated troponin which is slightly uptrending. Discussed admission for cardiac evaluation however patient is adamant that she wishes to go home as it is her [birth year] tomorrow. She is also feeling better. I have Cance patient to stay for a third troponin if troponin is downtrending she remains asymptomatic consider home with close cardiology follow-up. Otherwise discuss further admission. HPI General Date/Time Provider Initiated Documentation: 03/07/22 14:53 . HPI Narrative: 51-year-old female history of SVT pulmonary hypertension possible history of CHF presents with chest pain fatigue and headache over the past several days. Denies leg swelling however in the past her edema has been mainly abdominal region and upper extremities in nature. Related Data Home Medications Medication Instructions Recorded Confirmed fluticasone propionate 50 9.9 ml NS DAILY 12/23/16 02/11/22 mcg/actuation nasal spray,suspension (Flonase Allergy Relief) ropinirole 1 mg tablet 1 mg PO DIRECTED 06/12/20 02/11/22 trazodone 50 mg tablet 50 mg PO QHS PRN 06/12/20 02/11/22 diclofenac sodium 1 % topical gel 4 g topical ONCE #150 grams 06/21/20 02/11/22 (Voltaren) duloxetine 60 mg capsule,delayed 60 mg PO DAILY #30 mg 08/19/20 02/11/22 release (Cymbalta) mometasone-formoterol HFA 200 inhalation PRN PRN 03/23/21 02/11/22 mcg-5 mcg/actuation aerosol inhaler (Dulera) albuterol sulfate 90 mcg/actuation 2 puff inhalation 6XD 05/30/21 02/11/22 aerosol inhaler loratadine 10 mg tablet (Allergy 10 mg PO DAILY 05/30/21 02/11/22 Relief (loratadine)) atorvastatin 80 mg tablet 80 mg PO QPM 06/10/21 02/11/22 empagliflozin 10 mg tablet 10 mg PO DAILY 06/10/21 02/11/22 erenumab-aooe 140 mg/mL 140 mg subcut QMONTH #1 mL 06/10/21 02/11/22 subcutaneous auto-injector (Aimovig Autoinjector) furosemide 20 mg tablet (Lasix) 20 mg PO DAILY 09/25/21 02/11/22 nitroglycerin 0.4 mg sublingual 0.4 mg sublingual Q5M PRN 09/25/21 02/11/22 tablet prochlorperazine maleate 5 mg See Rx Instructions PO PRN PRN 09/25/21 02/11/22 tablet gabapentin 600 mg tablet 600 mg PO QHS #90 tabs 11/24/21 02/11/22 topiramate 100 mg tablet (Topamax) 100 mg PO QHS #90 tab-caps 11/24/21 02/11/22 spironolactone 25 mg tablet 25 mg PO DAILY 01/22/22 02/11/22 Previous Rx's Medication Instructions Recorded diclofenac sodium 1 % topical gel 4 g topical ONCE #150 grams 06/21/20 (Voltaren) duloxetine 60 mg capsule,delayed 60 mg PO DAILY #30 mg 08/19/20 release (Cymbalta) erenumab-aooe 140 mg/mL 140 mg subcut QMONTH #1 mL 06/10/21 subcutaneous auto-injector (Aimovig Autoinjector) gabapentin 600 mg tablet 600 mg PO QHS #90 tabs 11/24/21 topiramate 100 mg tablet (Topamax) 100 mg PO QHS #90 tab-caps 11/24/21 Allergies Allergy/AdvReac Type Severity Reaction Status Date / Time acetaminophen [From Tylenol] AdvReac Intermediate Unverified 02/11/22 13:50 clobetasol AdvReac Intermediate Skin Rash Verified 02/11/22 13:50 codeine AdvReac Mild Verified 02/11/22 13:50 ibuprofen AdvReac Unverified 02/11/22 13:50 environmental Allergy Mild Uncoded 02/11/22 13:50 General Stated Complaint: Chest Pain MIKAELA: 2 Review of Systems Narrative: Review of Systems Constitutional: negative Eyes: negative ENT: negative Cardiovascular: chest pain Respiratory: negative Gastrointestinal: negative : negative Musculoskeletal: negative Skin: negative Neurologic: Headache Psych: negative PFSH All Active Problems (Updated 02/11/22 @ 13:08 by Leonides Alex MD) Avulsion fracture of right talus (Acute 12/30/21) Arthritis of carpometacarpal (CMC) joint of left thumb (Acute) Bilateral carpal tunnel syndrome (Acute) Paresthesia of hand, bilateral (Acute) Abnormal chest CT (Acute) Pulmonary hypertension (Acute) Atypical chest pain (Acute) PSVT (paroxysmal supraventricular tachycardia) (Acute) Acute non-ST elevation myocardial infarction (NSTEMI) (Acute) Right upper quadrant abdominal pain (Acute) Restless legs syndrome (Acute) Rhinitis, nonallergic, chronic (Acute) Tendinitis (Acute) Chest pain (Acute) Migraine headache without aura (Acute) Lichen sclerosus (Acute) Migraine with aura and without status migrainosus, not intractable (Acute 02/24/16) Medical History (Updated 02/11/22 @ 13:08 by Leonides Alex MD) Acute bronchitis Acute non-ST elevation myocardial infarction (NSTEMI) Arthritis of carpometacarpal (CMC) joint of left thumb Asthma [facility] (closed head injury) Chronic heart failure with preserved ejection fraction COVID-19 Depression Elevated troponin I level Endometriosis Infiltrate of lower lobe of left lung present on imaging study Insomnia Left lateral epicondylitis Left wrist pain Migraine Non-ST elevation [place] (NSTEMI) MARYLOU (obstructive sleep apnea) Overweight Surgical History History of partial hysterectomy Family History Daughter Migraines Mother Hypertension Father Heart disease Social History Smoking/Tobacco Use Status: Never Smoking risk assessment performed?: Yes Alcohol Intake: never Drug use: Never Substance use type: does not use Current gender identity: female Do you feel safe at home: Yes Do you feel safe in your relationship?: Yes Female Reproductive History Menstrual Menopause type: surgical History History 2 Para 2 Hx # Term Pregnancies Multiple births Hx # Pregnancies Ectopic pregnancies AB induced Hx Number of Living Children AB spontaneous Exam Narrative Exam Narrative: Physical Examination General: alert, awake, cooperative, resting comfortably, no acute distress HEENT: normocephalic, atraumatic; PERRL, EOM intact, conjunctiva normal; no nasal discharge; moist mucous membranes, oral and pharyngeal mucosa normal, tolerating secretions Neck: supple, trachea midline; full ROM Chest: normal to inspection Respiratory: normal respiratory effort, speaking in full sentences, clear to auscultation, no wheezing, rales or rhonchi Cardiac: regular rate, regular rhythm, S1S2 intact, no murmurs rubs or gallops GI: abdomen soft, non-tender, non-distended; no palpable mass or hepatosplenomegaly Skin: no lesions, rashes or trauma appreciated Neuro: AAOx3, normal speech, moving all extremities Extremities: No peripheral edema Psych: Appropriate mood and affect Course Vital Signs Vital signs: Vital Signs Temperature 36.4 C L 03/07/22 14:38 Pulse 57 L 03/07/22 14:38 Respiratory Rate 20 03/07/22 14:38 Blood Pressure 94/49 L 03/07/22 14:38 Pulse Oximetry 98 03/07/22 14:38 Temperature 36.4 C L 03/07/22 14:38 Temperature Source Tympanic 03/07/22 14:38 Pulse 57 L 03/07/22 14:38 Respiratory Rate 18 03/07/22 14:46 Respiratory Effort Non-Labored 03/07/22 14:46 Respiratory Depth Normal 03/07/22 14:46 Respiratory Pattern Normal 03/07/22 14:46 Blood Pressure 94/49 L 03/07/22 14:38 Blood Pressure Position Supine 03/07/22 14:38 Pulse Oximetry 98 03/07/22 14:38 Oxygen Delivery Method Room Air 03/07/22 14:38 Oxygen Flow Rate 0 03/07/22 14:38 Pain Level 5 03/07/22 14:46
[2022-03-07] MEDS: Aspirin 81 MG CHEW 324 MG CH (15:07)
[2022-03-07 15:23] LABS: Abs Immature Grans 0.02 10^3/uL (0.0-0.06); Absolute Basophil Count 0.04 10^3/uL (0.0-0.2); Absolute Eosinophil Count 0.32 10^3/uL (0.0-0.7); Absolute Lymphocyte Count 1.18 10^3/uL (1.2-3.4); Absolute Monocyte Count 0.88 10^3/uL (0.1-0.8); Absolute Neutrophil Count 3.63 10^3/uL (1.2-6.7); Basophils % 0.7; Eosinophils % 5.3; HCT 43.8 % (36.0-46.0); HGB 14.2 g/dL (11.2-15.7); Immature Grans % 0.3; Lymphocytes % 19.4; MCH 30.9 pg (27.0-33.0); MCHC 32.4 % (32.0-36.0); MCV 95 fL (80-95); Monocytes % 14.5; Neutrophils % 59.8; Platelet Count 214 10^3/uL (130-400); RBC 4.59 10^6/uL (3.93-5.22); RDW 12.7 % (11.7-14.6); RDW-SD 44.5 fL; WBC 6.07 10^3/uL (4.4-10.8)
--- NOTE | 2022-03-07 15:42 | DI.VRAD_ITS ---
PROCEDURE INFORMATION: Exam: XR Chest Exam date and time: 03/07/2022 2:55 PM Age: 51 years old Clinical indication: Other: Unspecified; Patient HX: Chest pain, HX of chf TECHNIQUE: Imaging protocol: Radiologic exam of the chest. Views: 1 view. COMPARISON: CT CHEST PE CTA 12/30/2021 5:23 PM FINDINGS: Lungs: There is mild pulmonary venous congestion. There is mild diffuse interstitial edema. Underlying inflammatory or infectious process not excluded. Pleural spaces: There no pleural effusions. No evidence of pneumothorax. Heart/Mediastinum: The heart is moderately enlarged. There is mild prominence of the mediastinum. Bones/joints: The skeletal structures and soft tissues show no evidence of fracture or other acute processes. Soft tissues: The soft tissues of the extrathoracic region are unremarkable. IMPRESSION: Probable mild congestive heart failure. Underlying inflammatory or infectious process not excluded. Dictated and Authenticated by: Wilton Madrid MD. Ordering:NNEKA Alvarez MD
[2022-03-07 15:47] LABS: COVID-19 PCR Negative (Negative); Influenza A PCR Negative (Negative); Influenza B PCR Negative (Negative); RSV PCR Negative (Negative)
[2022-03-07 15:52] LABS: Source Nasopharynx
[2022-03-07 16:04] LABS: ALT 23 U/L (14-59); AST 19 U/L (15-37); Alkaline Phosphatase 64 U/L (46-116); Anion Gap 9.5 mmol/L (3-11); BUN 27 mg/dL (7-18); Bilirubin, Total 0.6 mg/dL (0.2-1.0); CO2 27.5 mmol/L (21.0-32.0); CREATININE 1.2 mg/dL (0.55-1.02); Calcium 9.2 mg/dL (8.5-10.1); Chloride 106 mmol/L (98-107); Estimated GFR 54.46 (mL/min/1.73m2); Glucose 97 mg/dL (74-106); Potassium 3.9 mmol/L (3.5-5.1); Sodium 143 mmol/L (136-145); Total Protein 7.5 g/dL (6.4-8.2)
[2022-03-07 16:06] LABS: Troponin I 518 ng/L (<or=60)
[2022-03-07 16:13] LABS: NT-proBNP 989 pg/mL (<300)
[2022-03-07 18:57] LABS: Troponin I 532 ng/L (<or=60)
[2022-03-07 22:15] LABS: Troponin I 511 ng/L (<or=60)
--- NOTE | 2022-03-07 22:18 | ED.PROG_ITS ---
Date of service: 03/07/22 Time of Service: 22:18 Medical Decision Making Received signout from Dr. Ovidio Moreland. Please see his note regarding details of the initial presentation, exam and plan of care. Patient's third troponin was 511, trending downwards. I again discussed the risks and benefits of admission with her. She continues to decline. She will be discharged AGAINST MEDICAL ADVICE but will follow up with her primary senior ui software engineer. Lab Data Lab results reviewed: Yes I reviewed the patient's lab results. Labs: Laboratory Results - last 24 hr 03/07/22 03/07/22 03/07/22 15:01 15:10 15:10 WBC 6.07 RBC 4.59 Hgb 14.2 Hct 43.8 MCV 95 MCH 30.9 MCHC 32.4 RDW 12.7 Plt Count 214 MPV 11.0 Immature Gran % 0.3 Neutrophils % 59.8 Lymphocytes % 19.4 Monocytes % 14.5 Eosinophils % 5.3 Basophils % 0.7 Nucleated RBC % 0.0 Absolute Neutrophils 3.63 Absolute Lymphocytes 1.18 L Absolute Monocytes 0.88 H Absolute Eosinophils 0.32 Absolute Basophils 0.04 Sodium 143 Potassium 3.9 Chloride 106 Carbon Dioxide 27.5 Anion Gap 9.5 BUN 27 H Creatinine 1.2 H Est GFR (CKD-EPI 2020) 54.46 Glucose 97 Calcium 9.2 Total Bilirubin 0.6 AST 19 ALT 23 Alkaline Phosphatase 64 Troponin I 518 H* NT-Pro-B Natriuret Pep 989 H Total Protein 7.5 Albumin 4.0 COVID-19 Source Nasopharynx SARS-CoV-2 (PCR) Negative Influenza Type A (PCR) Negative Influenza Type B (PCR) Negative RSV (PCR) Negative 03/07/22 03/07/22 18:27 21:44 WBC RBC Hgb Hct MCV MCH MCHC RDW Plt Count MPV Immature Gran % Neutrophils % Lymphocytes % Monocytes % Eosinophils % Basophils % Nucleated RBC % Absolute Neutrophils Absolute Lymphocytes Absolute Monocytes Absolute Eosinophils Absolute Basophils Sodium Potassium Chloride Carbon Dioxide Anion Gap BUN Creatinine Est GFR (CKD-EPI 2020) Glucose Calcium Total Bilirubin AST ALT Alkaline Phosphatase Troponin I 532 H* 511 H* NT-Pro-B Natriuret Pep Total Protein Albumin COVID-19 Source SARS-CoV-2 (PCR) Influenza Type A (PCR) Influenza Type B (PCR) RSV (PCR) Sign Out Sign Out Data: Sign Out Comment: elevated trop, resolving chest pain; pending third trop, if downtrending and patient remains chest pain free/stable, home with close followup; it is patients bday tomorrow and she does not want to be hospitalized at this point Last updated by Antonio Sanchez MD at 03/07/22 20:52 Discharge Plan Disposition Patient Disposition: Against Medical Advise Condition: Stable Discharge Details Clinical Impression: Elevated troponin Primary Care Provider: Polo Pearce ED Provider: Jasiel Caicedo Home Meds and New Rx's Prescriptions: Continued ropinirole 1 mg tablet 1 mg PO DIRECTED Rx Instructions: administer 1-3 hours before bedtime, and one at bed time trazodone 50 mg tablet 50 mg PO QHS PRN Rx Instructions: 1-2 tabs qhs spironolactone 25 mg tablet 25 mg PO DAILY atorvastatin 80 mg tablet 80 mg PO QPM empagliflozin 10 mg tablet 10 mg PO DAILY Aimovig Autoinjector 140 mg/mL auto-injector 140 mg subcut QMONTH Qty: 1 11RF topiramate [Topamax] 100 mg tablet 100 mg PO QHS Qty: 90 3RF gabapentin 600 mg tablet 600 mg PO QHS Qty: 90 3RF fluticasone propionate [Flonase Allergy Relief] 9.9 ML spray,suspension 9.9 ml NS DAILY duloxetine [Cymbalta] 60 mg capsule,delayed release(DR/EC) 60 mg PO DAILY Qty: 30 2RF albuterol sulfate 90 mcg/actuation HFA aerosol inhaler 2 puff inhalation 6XD loratadine [Allergy Relief (loratadine)] 10 mg tablet 10 mg PO DAILY nitroglycerin 0.4 mg tablet, sublingual 0.4 mg sublingual Q5M PRN Rx Instructions: do not exceed 3 doses per episode furosemide [Lasix] 20 mg tablet 20 mg PO DAILY prochlorperazine maleate 5 mg tablet See Rx Instructions PO PRN PRN Rx Instructions: 1-2 orally as needed PRN; diclofenac sodium [Voltaren] 1 % gel 4 g topical ONCE Qty: 150 0RF Rx Instructions: apply to single knee, ankle, foot; for foot includes sole/toes/top of foot Dulera 200-5 mcg/actuation HFA aerosol inhaler INHALATION PRN PRN Label Comments: Inhale 2 inhalations by mouth twice daily Discharge Instructions Additional Instructions: You have elected to leave against our medical advice. Please return at anytime for reevaluation. Your troponin today was elevated in the low 500 range. Follow-up with cardiology as you have planned.
== END 2022-03-07 22:27 | disposition left against medical advice (07) ==
PROVIDERS: Emergency Medicine; Emergency Provider Emergency Medicine; PCP Physician Assistant
DX: R77.8 Other specified abnormalities of plasma proteins (principal); J45.909 Unspecified asthma, uncomplicated; I25.2 Old myocardial infarction; Z53.29 Procedure and treatment not carried out because of patient's decision for other reasons; Z86.16 Personal history of COVID-19; Z20.822 Contact with and (suspected) exposure to COVID-19
CPT/HCPCS: 36415; 80053; 87637; 93005; 99284; 71045; 83880; 84484; 85025; 93010; 99285

== ENCOUNTER 2022-03-09 07:55 | Emergency (ER) | payer OTHER, SELFPAY ==
[2022-03-09 07:59] VITALS: BP 120/71; PULSE 60; RESP 18; TEMP 36.4; O2SAT 98
--- NOTE | 2022-03-09 08:23 | ED.GENADUL_ITS ---
Discharge Plan Disposition Patient Disposition: Home Condition: Stable Discharge Details Clinical Impression: Acute hemorrhagic cystitis Primary Care Provider: Polo Pearce ED Provider: Otis Rubi Home Meds and New Rx's Prescriptions: New cephalexin 500 mg tablet 500 mg PO TID 5 Days Qty: 15 0RF Continued ropinirole 1 mg tablet 1 mg PO DIRECTED Rx Instructions: administer 1-3 hours before bedtime, and one at bed time trazodone 50 mg tablet 50 mg PO QHS PRN Rx Instructions: 1-2 tabs qhs spironolactone 25 mg tablet 25 mg PO DAILY atorvastatin 80 mg tablet 80 mg PO QPM empagliflozin 10 mg tablet 10 mg PO DAILY Aimovig Autoinjector 140 mg/mL auto-injector 140 mg subcut QMONTH Qty: 1 11RF topiramate [Topamax] 100 mg tablet 100 mg PO QHS Qty: 90 3RF gabapentin 600 mg tablet 600 mg PO QHS Qty: 90 3RF fluticasone propionate [Flonase Allergy Relief] 9.9 ML spray,suspension 9.9 ml NS DAILY duloxetine [Cymbalta] 60 mg capsule,delayed release(DR/EC) 60 mg PO DAILY Qty: 30 2RF albuterol sulfate 90 mcg/actuation HFA aerosol inhaler 2 puff inhalation 6XD loratadine [Allergy Relief (loratadine)] 10 mg tablet 10 mg PO DAILY nitroglycerin 0.4 mg tablet, sublingual 0.4 mg sublingual Q5M PRN Rx Instructions: do not exceed 3 doses per episode furosemide [Lasix] 20 mg tablet 20 mg PO DAILY prochlorperazine maleate 5 mg tablet See Rx Instructions PO PRN PRN Rx Instructions: 1-2 orally as needed PRN; Dulera 200-5 mcg/actuation HFA aerosol inhaler 1 inh INHALATION PRN PRN Label Comments: Inhale 2 inhalations by mouth twice daily Discharge Instructions Additional Instructions: If you develop any fever chills, severe nausea vomiting, or significant worsening of your bloody urine please return to the emergency department for reassessment. Otherwise take your medication as prescribed and follow-up with your primary care provider for recheck of your symptoms. Referrals: Polo Pearce [Primary Care Provider] - 3 days Discharge Data Discharge Date/Time-TO BE ENTERED AT DEPARTURE: 03/09/22 10:44 Medical Decision Making Patient presenting to the emergency department for chief complaint of urinary bleeding. Patient states that this just started this morning when she woke up. Does state that she is pending a cardiac ablation does state some shortness of breath with activity but denies chest pain or other cardiac symptoms at this time. She does state that she has had some nausea and lower abdominal pain since this morning as well. Patient denies any recent sexual activity, vaginal bleeding or discharge. Does state about a week ago she had GI illness with some diarrhea. Physical exam shows diffuse nonfocal abdominal tenderness mainly to the lower quadrants, patient stating CVA tenderness but I feel this is very subjective and otherwise unremarkable exam. We will plan on checking urinalysis due to high suspicion of hemorrhagic cystitis. Patient denies any need for medication pending results. community health nurse staff did show me the urine specimen which was extremely bloody. Given that we will plan on checking labs and CT imaging. We will also give patient dose of Rocephin pending results. Reviewed labs and patient's CBC is overall unremarkable, CMP shows slightly increased chloride at 108, BUN of 22, creatinine 1.2 which are all at patient's baseline. CMP is otherwise negative. Urinalysis does show high specific gravity with significant amount of blood present but negative for nitrite and leukocyte Estrace. Reflective culture was automatically ordered. Review of CT imaging shows no acute findings noted. Discussed with patient risk versus benefit of continued antibiotic therapy as I still suspect hemorrhagic cystitis with no obvious cause beyond recent GI illness. Patient was agreeable to receiving oral antibiotics pending culture result. We will have patient referred to primary care provider for reassessment and referral to urology as needed or if not improving. After discussion of diagnosis and plan of care patient has no further needs, questions, or concerns and states clear under standing to return to the emergency department for any worsening symptoms. This documentation was generated using [employer] dictation system, please disregard any oddities of phrase or misspellings. Imaging Data Radiologic Study: Imaging: CT Scan Radiologist's impression: Exam: CT Abdomen And Pelvis Without Contrast Exam date and time: 03/09/2022 9:32 AM Age: 52 years old Clinical indication: Abdominal pain; Generalized; Prior surgery; Surgery date: 6+ months TECHNIQUE: Imaging protocol: Computed tomography of the abdomen and pelvis without contrast. COMPARISON: CT ABDOMEN PELVIS W 05/27/2021 1:46 PM FINDINGS: Liver: Normal. No mass. Gallbladder and bile ducts: Normal. No calcified stones. No ductal dilation. Pancreas: Normal. No ductal dilation. Spleen: Normal. No splenomegaly. Adrenal glands: Normal. No mass. Kidneys and ureters: Normal. No hydronephrosis. Stomach and bowel: Unremarkable. No obstruction. No mucosal thickening. Appendix: The appendix is not seen. Intraperitoneal space: Unremarkable. No free air. No significant fluid collection. Vasculature: Unremarkable. No abdominal aortic aneurysm. Lymph nodes: Unremarkable. No enlarged lymph nodes. Urinary bladder: Unremarkable as visualized. Reproductive: The uterus is surgically absent. Bones/joints: Unremarkable. No acute fracture. Soft tissues: Unremarkable. IMPRESSION: No acute abdominopelvic pathology. Post hysterectomy. Lab Data Lab results reviewed: Yes I reviewed the patient's lab results. HPI General Mode of arrival: ambulatory . Date/Time Provider Initiated Documentation: 03/09/22 08:03 . Limitations to Documentation: no limitations . Information obtained by: patient, RN notes reviewed and old records reviewed . History of Present Illness 52 year old F presents to the emergency department with the chief complaint of Bleeding with urination, described as moderate, Quality is described as aching, and is localized to the abdomen and pelvis. Patient reports no radiation. Patient started experiencing this hour(s) (2) and it has been intermittent. No relieving factors improve symptom(s), Other factors that worsen symptoms (Urination) . Patient notes no other symptoms.. Patient did receive the following treatments prior to arrival, none Related Data Home Medications Medication Instructions Recorded Confirmed fluticasone propionate 50 9.9 ml NS DAILY 12/23/16 03/09/22 mcg/actuation nasal spray,suspension (Flonase Allergy Relief) ropinirole 1 mg tablet 1 mg PO DIRECTED 06/12/20 03/09/22 trazodone 50 mg tablet 50 mg PO QHS PRN 06/12/20 03/09/22 duloxetine 60 mg capsule,delayed 60 mg PO DAILY #30 mg 08/19/20 03/09/22 release (Cymbalta) mometasone-formoterol HFA 200 1 inh inhalation PRN PRN 03/23/21 03/09/22 mcg-5 mcg/actuation aerosol inhaler (Dulera) albuterol sulfate 90 mcg/actuation 2 puff inhalation 6XD 05/30/21 03/09/22 aerosol inhaler loratadine 10 mg tablet (Allergy 10 mg PO DAILY 05/30/21 03/09/22 Relief (loratadine)) atorvastatin 80 mg tablet 80 mg PO QPM 06/10/21 03/09/22 empagliflozin 10 mg tablet 10 mg PO DAILY 06/10/21 03/09/22 erenumab-aooe 140 mg/mL 140 mg subcut QMONTH #1 mL 06/10/21 03/09/22 subcutaneous auto-injector (Aimovig Autoinjector) furosemide 20 mg tablet (Lasix) 20 mg PO DAILY 09/25/21 03/09/22 nitroglycerin 0.4 mg sublingual 0.4 mg sublingual Q5M PRN 09/25/21 03/09/22 tablet prochlorperazine maleate 5 mg See Rx Instructions PO PRN PRN 09/25/21 03/09/22 tablet gabapentin 600 mg tablet 600 mg PO QHS #90 tabs 11/24/21 03/09/22 topiramate 100 mg tablet (Topamax) 100 mg PO QHS #90 tab-caps 11/24/21 03/09/22 spironolactone 25 mg tablet 25 mg PO DAILY 01/22/22 03/09/22 cephalexin 500 mg tablet 500 mg PO TID 5 days #15 tabs 03/09/22 Previous Rx's Medication Instructions Recorded duloxetine 60 mg capsule,delayed 60 mg PO DAILY #30 mg 08/19/20 release (Cymbalta) erenumab-aooe 140 mg/mL 140 mg subcut QMONTH #1 mL 06/10/21 subcutaneous auto-injector (Aimovig Autoinjector) gabapentin 600 mg tablet 600 mg PO QHS #90 tabs 11/24/21 topiramate 100 mg tablet (Topamax) 100 mg PO QHS #90 tab-caps 11/24/21 cephalexin 500 mg tablet 500 mg PO TID 5 days #15 tabs 03/09/22 Allergies Allergy/AdvReac Type Severity Reaction Status Date / Time acetaminophen [From Tylenol] AdvReac Intermediate Unverified 03/09/22 08:02 clobetasol AdvReac Intermediate Skin Rash Verified 03/09/22 08:02 codeine AdvReac Mild Verified 03/09/22 08:02 ibuprofen AdvReac Unverified 03/09/22 08:02 environmental Allergy Mild Uncoded 03/09/22 08:02 General Stated Complaint: [employer] MIKAELA: 3 Review of Systems Constitutional Constitutional: Denies body ache(s), Denies chills, Denies fever(s), Reports malaise and Denies weakness Cardiovascular Cardiovascular: Denies chest pain and Reports dyspnea on exertion Respiratory Respiratory: Reports system reviewed and no additional complaints, except as documented and Reports dyspnea on exertion Gastrointestinal Gastrointestinal: Denies abdominal pain, Denies nausea and Denies vomiting Genitourinary Genitourinary: Reports as per HPI, Denies abnormal vaginal bleeding, Reports hematuria, Reports dysuria, Denies flank pain, Reports urinary urgency and Denies vaginal discharge Neurologic Neurologic: Denies confusion and Denies weakness Psychiatric Psychiatric: Denies confusion PFSH All Active Problems (Updated 03/09/22 @ 10:31 by Otis Rubi NP) Elevated troponin (Acute) Acute hemorrhagic cystitis (Acute) Avulsion fracture of right talus (Acute 12/30/21) Arthritis of carpometacarpal (CMC) joint of left thumb (Acute) Bilateral carpal tunnel syndrome (Acute) Paresthesia of hand, bilateral (Acute) Abnormal chest CT (Acute) Pulmonary hypertension (Acute) Atypical chest pain (Acute) PSVT (paroxysmal supraventricular tachycardia) (Acute) Acute non-ST elevation myocardial infarction (NSTEMI) (Acute) Right upper quadrant abdominal pain (Acute) Restless legs syndrome (Acute) Rhinitis, nonallergic, chronic (Acute) Tendinitis (Acute) Chest pain (Acute) Migraine headache without aura (Acute) Lichen sclerosus (Acute) Migraine with aura and without status migrainosus, not intractable (Acute 02/24/16) Medical History Acute bronchitis Acute non-ST elevation myocardial infarction (NSTEMI) Arthritis of carpometacarpal (CMC) joint of left thumb Asthma [facility] (closed head injury) Chronic heart failure with preserved ejection fraction COVID-19 Depression Elevated troponin I level Endometriosis Infiltrate of lower lobe of left lung present on imaging study Insomnia Left lateral epicondylitis Left wrist pain Migraine Non-ST elevation [place] (NSTEMI) MARYLOU (obstructive sleep apnea) Overweight Surgical History History of partial hysterectomy Family History Daughter Migraines Mother Hypertension Father Heart disease Social History Smoking/Tobacco Use Status: Never Smoking risk assessment performed?: Yes Alcohol Intake: never Drug use: Never Substance use type: does not use Current gender identity: female Do you feel safe at home: Yes Do you feel safe in your relationship?: Yes Female Reproductive History Menstrual Menopause type: surgical History History 2 Para 2 Hx # Term Pregnancies Multiple births Hx # Pregnancies Ectopic pregnancies AB induced Hx Number of Living Children AB spontaneous Exam Const General: cooperative Orientation: alert, awake and oriented x3 Resp Effort & Inspection: normal respiratory effort and able to speak in complete sentences Auscultation: clear to auscultation bilaterally Cardio Rate: regular rate Rhythm: regular rhythm Heart Sounds: S1 normal and S2 normal GI Palpation: soft, not firm, no guarding, no masses, no pulsatile masses, not rigid, no splenomegaly and tender suprapubicly Auscultation: normal bowel sounds Back/Spine/Pelvis Back: no CVA tenderness Neuro General: patient alert, patient awake, patient oriented x3, gait normal and moves all extremities Course Vital Signs Vital signs: Vital Signs Temperature 36.4 C L 03/09/22 07:59 Pulse 60 03/09/22 07:59 Respiratory Rate 18 03/09/22 07:59 Blood Pressure 120/71 03/09/22 07:59 Pulse Oximetry 98 03/09/22 07:59 Temperature 36.4 C L 03/09/22 07:59 Temperature Source Temporal Artery Scan 03/09/22 07:59 Pulse 60 03/09/22 07:59 Respiratory Rate 18 03/09/22 07:59 Respiratory Effort Non-Labored 03/09/22 08:02 Blood Pressure 120/71 03/09/22 07:59 Blood Pressure Position Supine 03/09/22 07:59 Pulse Oximetry 98 03/09/22 07:59 Oxygen Delivery Method Room Air 03/09/22 07:59 Oxygen Flow Rate 0 03/09/22 07:59
--- NOTE | 2022-03-09 08:45 | DI.CT_ITS ---
Exam(s) CT RENAL COLIC WO EXAM: CT RENAL COLIC WO CLINICAL HISTORY: Lower abdominal pain, hematuria. TECHNIQUE: Imaging Protocol: Axial computed tomography images with coronal and sagittal reformatted images were created and reviewed. CONTRAST MATERIAL: Noncontrast COMPARISON: CT CT ABDOMEN PELVIS W from 05/27/2021 CR,XR XR PORTABLE CHEST AP from 03/07/2022 FINDINGS: ABDOMEN: Lung Bases: Normal where visualized. Liver: Normal attenuation. No measurable mass. Gallbladder and biliary tract: No radiodense calculus or dilation. Pancreas: Normal density, no calcifications or inflammatory process. Spleen: Normal. Kidneys: Normal size, contour and axis. No radiodense stones or obstructive uropathy. No masses seen. Adrenal glands: No masses seen. Abdominal Aorta: Abdominal portion non-dilated. Moderate atherosclerotic changes. PELVIS: Bladder: Nearly empty, not well evaluated. No gross wall thickening. No evidence of stones.No visibl e mass. Bowel: No obstruction or bowel wall thickening. Appendix normal. Reproductive: Status post hysterectomy. Peritoneal cavity: No ascites, collection or mesenteric inflammatory response. Bones: Unremarkable for age.. IMPRESSION: No acute abnormality. RADIATION DOSE DELIVERED: 1,331.57mGy.cm Total DLP DATA REPOSITORY: All CT scans at this facility are submitted to the National Radiology Data Registry (NRDR) Dose Index Registry (DIR) with the [employer] (ACR). RADIATION OPTIMIZATION: All CT scans at this facility use at least one of these dose optimization te chniques: automated exposure control; mA and/or kV adjustment per patient size (includes targeted exa ms where dose is matched to clinical indication); or iterative reconstruction.
[2022-03-09 09:03] LABS: Bilirubin Small (Negative); Blood Large (Negative); Clarity Cloudy (Clear); Glucose >=1000 mg/dL (Negative); Ketones Trace mg/dL (Negative); Leukocyte Esterase Negative (Negative); Nitrite Negative (Negative); Specific Gravity >= 1.030 (1.005-1.025); Urobilinogen 0.2 EU/dL (Up TO 0.2); pH 5.5 (5-8)
[2022-03-09 09:06] LABS: Bacteria Few HPF (Negative); RBC >50 HPF (0-2)
[2022-03-09 09:07] LABS: C & S Indicated? Yes
[2022-03-09 09:16] LABS: Abs Immature Grans 0.02 10^3/uL (0.0-0.06); Absolute Basophil Count 0.05 10^3/uL (0.0-0.2); Absolute Eosinophil Count 0.29 10^3/uL (0.0-0.7); Basophils % 0.6; Eosinophils % 3.7; HCT 44.2 % (36.0-46.0); HGB 14.5 g/dL (11.2-15.7); Immature Grans % 0.3; MCH 31.3 pg (27.0-33.0); MCHC 32.8 % (32.0-36.0); MCV 95 fL (80-95); MPV 11.2 fL (8.0-11.0); Monocytes % 7.7; Neutrophils % 69.7; Platelet Count 225 10^3/uL (130-400); RBC 4.64 10^6/uL (3.93-5.22); RDW 12.7 % (11.7-14.6); RDW-SD 44.4 fL; WBC 7.76 10^3/uL (4.4-10.8)
[2022-03-09] MEDS: cefTRIAXone 1 GM/50 ML BAG IVPB (09:17)
[2022-03-09 09:30] LABS: ALT 29 U/L (14-59); AST 21 U/L (15-37); Alkaline Phosphatase 58 U/L (46-116); Anion Gap 8.5 mmol/L (3-11); BUN 22 mg/dL (7-18); Bilirubin, Total 0.6 mg/dL (0.2-1.0); CO2 23.5 mmol/L (21.0-32.0); CREATININE 1.2 mg/dL (0.55-1.02); Chloride 108 mmol/L (98-107); Estimated GFR 54.13 (mL/min/1.73m2); Glucose 105 mg/dL (74-106); Potassium 4.3 mmol/L (3.5-5.1); Sodium 140 mmol/L (136-145); Total Protein 7.8 g/dL (6.4-8.2)
[2022-03-09 09:55] VITALS: BP 116/68; PULSE 54; RESP 18; O2SAT 95
--- NOTE | 2022-03-09 10:02 | DI.VRAD_ITS ---
PROCEDURE INFORMATION: Exam: CT Abdomen And Pelvis Without Contrast Exam date and time: 03/09/2022 9:32 AM Age: 52 years old Clinical indication: Abdominal pain; Generalized; Prior surgery; Surgery date: 6+ months TECHNIQUE: Imaging protocol: Computed tomography of the abdomen and pelvis without contrast. COMPARISON: CT ABDOMEN PELVIS W 05/27/2021 1:46 PM FINDINGS: Liver: Normal. No mass. Gallbladder and bile ducts: Normal. No calcified stones. No ductal dilation. Pancreas: Normal. No ductal dilation. Spleen: Normal. No splenomegaly. Adrenal glands: Normal. No mass. Kidneys and ureters: Normal. No hydronephrosis. Stomach and bowel: Unremarkable. No obstruction. No mucosal thickening. Appendix: The appendix is not seen. Intraperitoneal space: Unremarkable. No free air. No significant fluid collection. Vasculature: Unremarkable. No abdominal aortic aneurysm. Lymph nodes: Unremarkable. No enlarged lymph nodes. Urinary bladder: Unremarkable as visualized. Reproductive: The uterus is surgically absent. Bones/joints: Unremarkable. No acute fracture. Soft tissues: Unremarkable. IMPRESSION: No acute abdominopelvic pathology. Post hysterectomy. Dictated and Authenticated by: Osorio Dalton MD. Ordering:RODOLFO Berg MD
[2022-03-09 10:40] VITALS: BP 106/62; PULSE 47; RESP 20; O2SAT 94
--- NOTE | 2022-03-09 11:32 | NUR.NOTE ---
Nursing Note: Referral faxed to PCP for hemorrhagic cystitis in 3 to 5 days.
== END 2022-03-09 10:44 | disposition home or self-care (01) ==
PROVIDERS: Emergency Provider Nurse Practitioner Family; PCP Physician Assistant
DX: N30.01 Acute cystitis with hematuria (principal); E87.8 Other disorders of electrolyte and fluid balance, not elsewhere classified; J45.909 Unspecified asthma, uncomplicated; I50.32 Chronic diastolic (congestive) heart failure; I25.2 Old myocardial infarction; Z86.16 Personal history of COVID-19; Z79.51 Long term (current) use of inhaled steroids; Z90.710 Acquired absence of both cervix and uterus
CPT/HCPCS: 36415; 80053; 87077; 96365; 99284; 74176; 81003; 81015; 85025; 87086; 87186; J0696

== ENCOUNTER 2022-03-10 10:05 | Emergency (ER) | payer OTHER, SELFPAY ==
[2022-03-10] VITALS (78 sets, daily range): BP systolic 87–146; BP diastolic 32–83; PULSE 38–71; RESP 10–18; TEMP 36.6; O2SAT 76–100
--- NOTE | 2022-03-10 10:15 | RT.EKG_ITS ---
APPROVED REPORT Exam: Resting ECG Reason for Exam: chest pain Patient Location: E HR:52 bpm ECG Measurements Heart Rate 52 AXIS ME 193 P 60 QRSd 103 QRS 71 QT 497 T 7 QTc 461 Conclusion Sinus bradycardia. Borderline ST depression.
[2022-03-10 10:31] LABS: Abs Immature Grans 0.01 10^3/uL (0.0-0.06); Absolute Basophil Count 0.03 10^3/uL (0.0-0.2); Absolute Eosinophil Count 0.21 10^3/uL (0.0-0.7); Absolute Lymphocyte Count 1.82 10^3/uL (1.2-3.4); Absolute Monocyte Count 0.43 10^3/uL (0.1-0.8); Absolute Neutrophil Count 4.37 10^3/uL (1.2-6.7); Basophils % 0.4; Eosinophils % 3.1; HCT 47.8 % (36.0-46.0); HGB 15.4 g/dL (11.2-15.7); Immature Grans % 0.1; Lymphocytes % 26.5; MCH 30.9 pg (27.0-33.0); MCHC 32.2 % (32.0-36.0); MCV 96 fL (80-95); MPV 11.1 fL (8.0-11.0); Monocytes % 6.3; Neutrophils % 63.6; Platelet Count 266 10^3/uL (130-400); RBC 4.98 10^6/uL (3.93-5.22); RDW 12.5 % (11.7-14.6); RDW-SD 44.5 fL; WBC 6.87 10^3/uL (4.4-10.8)
--- NOTE | 2022-03-10 10:36 | W.ED.GENAD ---
Discharge Plan Disposition Patient Disposition: Home Condition: Improving Discharge Details Clinical Impression: Abdominal pain, Elevated troponin Primary Care Provider: Polo Pearce ED Provider: Edwin Coulter Home Meds and New Rx's Prescriptions: New oxybutynin chloride 5 mg tablet 5 mg PO BID-TID PRNQty: 10 0RF Continued ropinirole 1 mg tablet 1 mg PO DIRECTED Rx Instructions: administer 1-3 hours before bedtime, and one at bed time trazodone 50 mg tablet 50 mg PO QHS PRN Rx Instructions: 1-2 tabs qhs spironolactone 25 mg tablet 25 mg PO DAILY atorvastatin 80 mg tablet 80 mg PO QPM empagliflozin 10 mg tablet 10 mg PO DAILY Aimovig Autoinjector 140 mg/mL auto-injector 140 mg subcut QMONTH Qty: 1 11RF topiramate [Topamax] 100 mg tablet 100 mg PO QHS Qty: 90 3RF gabapentin 600 mg tablet 600 mg PO QHS Qty: 90 3RF fluticasone propionate [Flonase Allergy Relief] 9.9 ML spray,suspension 9.9 ml NS DAILY duloxetine [Cymbalta] 60 mg capsule,delayed release(DR/EC) 60 mg PO DAILY Qty: 30 2RF albuterol sulfate 90 mcg/actuation HFA aerosol inhaler 2 puff inhalation 6XD loratadine [Allergy Relief (loratadine)] 10 mg tablet 10 mg PO DAILY nitroglycerin 0.4 mg tablet, sublingual 0.4 mg sublingual Q5M PRN Rx Instructions: do not exceed 3 doses per episode furosemide [Lasix] 20 mg tablet 20 mg PO DAILY prochlorperazine maleate 5 mg tablet See Rx Instructions PO PRN PRN Rx Instructions: 1-2 orally as needed PRN; cephalexin 500 mg tablet 500 mg PO TID 5 Days Qty: 15 0RF Dulera 200-5 mcg/actuation HFA aerosol inhaler 1 inh INHALATION PRN PRN Label Comments: Inhale 2 inhalations by mouth twice daily Discharge Instructions Additional Instructions: Work-up in the ER does not reveal any obvious emergent process. [facility] cardiology was consulted and they did not recommend any additional therapy at this time. Oxycodone and oxybutynin as directed, oxycodone may cause drowsiness and/or constipation. Please watch for new or worsening symptoms and return to the ER for any concerns. Lastly, please contact both your cardiology team at [facility] and your primary care provider tomorrow to discuss your ER visit and need for outpatient reevaluation. Continue the antibiotics recently prescribed for you for the potential hemorrhagic UTI as well. Discharge Data Discharge Date/Time-TO BE ENTERED AT DEPARTURE: 03/10/22 18:13 Medical Decision Making <Otis Rubi NP - Last Filed: 03/11/22 09:46> Patient presenting to the emergency department for lower pelvic abdominal pain. Patient was seen by myself yesterday and diagnosed with hemorrhagic cystitis with potential infectious cause given negative imaging and negative labs. Patient states all sudden this morning she started having significant worsening of pain in the lower pelvis radiating to her back. She does state since she was here and did have antibiotics she is had clear and normal urine and thought she was doing better until this pain started. She does state some chest pain with when her abdominal pain becomes severe denies all other symptoms. Physical exam shows lower pelvic pain to palpation of the external suprapubic area otherwise unremarkable exam. We will plan on checking labs including EKG and troponin given previous visit with elevated troponin. Also consider CTA imaging given pain radiating into her back with some chest pain. Pending results will give hydromorphone for pain control. Vital signs are completely stable, no significant tachycardia, blood pressure 127/64. Please see physician interpretation for full interpretation of EKG but patient does have some noted ST depression that is new since her previous visit so we will continue to monitor for any acute changes. Review of labs show an unremarkable CBC with no signs of anemia or infection, CMP shows baseline elevated BUN and creatinine with GFR 54, glucose 147 and negative lipase. Urinalysis again shows trace blood and glucose but otherwise no signs of infection. Patient's initial troponin was elevated at 615. Patient denies any change in condition so we will continue to monitor given review of history shows patient has continuous elevated troponin. Pending CT imaging results but after skin have been done patient did state some increase of chest pain. Gave patient 0.3 of nitro which did help resolve her pain. EKG was performed and did show sinus bradycardia and continued ST depressions but no significant change from EKG performed at initial presentation. Please see physician interpretation for full interpretation of EKG. Reassessed patient and she did state improvement of pain after single nitro and states she does not want any more. Did have slight hypotension so gave 500 mL fluid bolus. Spoke to radiologist in regards to preliminary CT imaging. 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 There was a abnormal loop of bowel which radiologist recommended oral contrast and rescanning. Discussed with patient risk first benefit of this and she stated that she was okay having repeat imaging. Order was placed.. Received second 3-hour troponin which was significantly lower at 478. I do feel this is reassuring but we will plan on speaking with [facility] cardiology. Spoke with [facility] cardiology and upon review of their records patient had similar EKG findings in 2020 and they did not appreciate much change in EKG. Also discussed troponins and again they felt reassured given that even in 2020 and additional visits patient had clear normal catheterization and no other worrisome findings noted. Will discuss with patient comfortability about following up with cardiology on an outpatient basis. Medical Records Medical records reviewed: Yes I reviewed the patient's medical records. Lab Data Lab results reviewed: Yes I reviewed the patient's lab results. <JOCY Cuevas - Last Filed: 03/10/22 18:49> Patient presenting to the emergency department for lower pelvic abdominal pain. Patient was seen by myself yesterday and diagnosed with hemorrhagic cystitis with potential infectious cause given negative imaging and negative labs. Patient states all sudden this morning she started having significant worsening of pain in the lower pelvis radiating to her back. She does state since she was here and did have antibiotics she is had clear and normal urine and thought she was doing better until this pain started. She does state some chest pain with when her abdominal pain becomes severe denies all other symptoms. Physical exam shows lower pelvic pain to palpation of the external suprapubic area otherwise unremarkable exam. We will plan on checking labs including EKG and troponin given previous visit with elevated troponin. Also consider CTA imaging given pain radiating into her back with some chest pain. Pending results will give hydromorphone for pain control. Vital signs are completely stable, no significant tachycardia, blood pressure 127/64. Please see physician interpretation for full interpretation of EKG but patient does have some noted ST depression that is new since her previous visit so we will continue to monitor for any acute changes. Review of labs show an unremarkable CBC with no signs of anemia or infection, CMP shows baseline elevated BUN and creatinine with GFR 54, glucose 147 and negative lipase. Urinalysis again shows trace blood and glucose but otherwise no signs of infection. Patient's initial troponin was elevated at 615. Patient denies any change in condition so we will continue to monitor given review of history shows patient has continuous elevated troponin. Pending CT imaging results but after skin have been done patient did state some increase of chest pain. Gave patient 0.3 of nitro which did help resolve her pain. EKG was performed and did show sinus bradycardia and continued ST depressions but no significant change from EKG performed at initial presentation. Please see physician interpretation for full interpretation of EKG. Reassessed patient and she did state improvement of pain after single nitro and states she does not want any more. Did have slight hypotension so gave 500 mL fluid bolus. Spoke to radiologist in regards to preliminary CT imaging. 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 There was a abnormal loop of bowel which radiologist recommended oral contrast and rescanning. Discussed with patient risk first benefit of this and she stated that she was okay having repeat imaging. Order was placed.. Received second 3-hour troponin which was significantly lower at 478. I do feel this is reassuring but we will plan on speaking with [facility] cardiology. Spoke with [facility] cardiology and upon review of their records patient had similar EKG findings in 2020 and they did not appreciate much change in EKG. Also discussed troponins and again they felt reassured given that even in 2020 and additional visits patient had clear normal catheterization and no other worrisome findings noted. Will discuss with patient comfortability about following up with cardiology on an outpatient basis. 1530: Edwin Coulter PA-C I assumed care of this 52-year-old female from my colleague TAYLOR Rubi, please see his initial HPI and examination. At time of signout awaiting abdomen and pelvis CT with oral contrast as requested by our radiology team. Patient appears to have chronic elevated troponin, [facility] cardiology was contacted and had no additional recommendations, felt as though outpatient follow-up was appropriate. With the patient, reports that she feels significant improvement after the IV Dilaudid. She is comfortable awaiting the results for the CT. She appears well, nontoxic, no acute distress, speaks in full sentences. Patient is tolerating p.o. intake. CT imaging does not reveal any significant acute findings of the abdomen and pelvis. Discussed findings with patient. She reports that her pain is mild but slowly coming back. She will continue taking the antibiotics prescribed during her last ER visit. I will give her a take-home pack of Percocet for discomfort to take as needed, and will provide a bladder antispasmodic as this may be the source of her discomfort. Patient is comfortable this plan and is comfortable being discharged home. Again, she appears well, nontoxic, no acute distress. Abdomen is nonsurgical. Upon discharge patient is ambulatory. Blood pressure 145/75, heart rate in the mid 50s. Standard discharge and return precautions were provided. Patient understands, is agreeable to this plan, and has no additional questions or concerns upon discharge. This documentation was generated using [employer] system, please disregard any oddities of phrase or misspellings. Imaging Data Radiologic Study: Attestation: I personally reviewed and interpreted this imaging study as follows: Imaging: CT Scan Radiologist's impression: Exam(s) CT ABDOMEN PELVIS WO EXAM: CT ABDOMEN PELVIS WO CLINICAL HISTORY: Abdominal pain. TECHNIQUE: Imaging Protocol: Axial computed tomography images with coronal and sagittal reformatted images were created and reviewed CONTRAST MATERIAL: Intravenous: none Oral: None COMPARISON: CT CT RENAL COLIC WO from 03/09/[address] THORAX ABD/PEL CTA from 03/10/2022 FINDINGS: VISUALIZED LUNG BASES: No nodules nor pleural effusions evident. ABDOMEN: There is no ascites. LIVER: There are no obvious focal hepatic lesions evident of this noninfused study. GALLBLADDER/BILIARY: No obvious gallbladder pathology. CBD is not dilated. PANCREAS: No evidence of pancreatic mass nor dilatation of the pancreatic duct. SPLEEN: Spleen is not enlarged. No obvious intrasplenic lesions. Tiny calcified granuloma in the anterior spleen noted. ADRENALS: There are no significant adrenal masses. KIDNEYS:No cysts evident. No solid renal masses. No calculi nor hydronephrosis. . ABDOMINAL AORTA: Calcified but not enlarged. LYMPH NODES: There is no retroperitoneal nor paraaortic adenopathy. ABDOMINAL WALL: No evidence of significant anterior abdominal wall nor inguinal hernia. GI: There is no evidence of bowel obstruction, free air, nor abscess. PELVIS: LYMPH NODES: There is no intrapelvic nor inguinal adenopathy. GI: The appendix is difficult to identify is separate structure. However, there is no evidence of obvious acute appendicitis. No evidence of acute sigmoid diverticulitis. URINARY BLADDER: No calculi nor obvious masses evident REPRODUCTIVE: Uterus is surgically absent. No abnormal adnexal masses. No free fluid in the pelvis. OSSEOUS: No significant osseous lesions. Unchanged most node invagination the anterior aspect of the superior endplate of L2 vertebral body. IMPRESSION: 1. No significant acute findings in the abdomen pelvis. 2. Uterus is again noted be surgically absent. No abnormal adnexal masses. No free fluid in the pelvis. HPI <Otis Rubi NP - Last Filed: 03/11/22 09:46> General Mode of arrival: ambulatory. Date/Time Provider Initiated Documentation: 03/10/22 10:06. Limitations to Documentation: no limitations. Information obtained by: patient, RN notes reviewed and old records reviewed. History of Present Illness 52 year old F presents to the emergency department with the chief complaint of lower Abdominal pain, described as severe, with intensity rated at >10. Quality is described as sharp, and is localized to the abdomen. Patient reports radiation to back. Patient started experiencing this hour(s) (2) and it has been constant. No relieving factors improve symptom(s), No exacerbating factors reported . Patient notes chest pain. Patient did receive the following treatments prior to arrival, NSAID Related Data Home Medications Medication Instructions Recorded Confirmed fluticasone propionate 50 9.9 ml NS DAILY 12/23/16 03/10/22 mcg/actuation nasal spray,suspension (Flonase Allergy Relief) ropinirole 1 mg tablet 1 mg PO DIRECTED 06/12/20 03/10/22 trazodone 50 mg tablet 50 mg PO QHS PRN 06/12/20 03/10/22 duloxetine 60 mg capsule,delayed 60 mg PO DAILY #30 mg 08/19/20 03/10/22 release (Cymbalta) mometasone-formoterol HFA 200 1 inh inhalation PRN PRN 03/23/21 03/10/22 mcg-5 mcg/actuation aerosol inhaler (Dulera) albuterol sulfate 90 mcg/actuation 2 puff inhalation 6XD 05/30/21 03/10/22 aerosol inhaler loratadine 10 mg tablet (Allergy 10 mg PO DAILY 05/30/21 03/10/22 Relief (loratadine)) atorvastatin 80 mg tablet 80 mg PO QPM 06/10/21 03/10/22 empagliflozin 10 mg tablet 10 mg PO DAILY 06/10/21 03/10/22 erenumab-aooe 140 mg/mL 140 mg subcut QMONTH #1 mL 06/10/21 03/10/22 subcutaneous auto-injector (Aimovig Autoinjector) furosemide 20 mg tablet (Lasix) 20 mg PO DAILY 09/25/21 03/10/22 nitroglycerin 0.4 mg sublingual 0.4 mg sublingual Q5M PRN 09/25/21 03/10/22 tablet prochlorperazine maleate 5 mg See Rx Instructions PO PRN PRN 09/25/21 03/10/22 tablet gabapentin 600 mg tablet 600 mg PO QHS #90 tabs 11/24/21 03/10/22 topiramate 100 mg tablet (Topamax) 100 mg PO QHS #90 tab-caps 11/24/21 03/10/22 spironolactone 25 mg tablet 25 mg PO DAILY 01/22/22 03/10/22 cephalexin 500 mg tablet 500 mg PO TID 5 days #15 tabs 03/09/22 03/10/22 oxybutynin chloride 5 mg tablet 5 mg PO BID-TID PRN #10 tabs 03/10/22 Previous Rx's Medication Instructions Recorded duloxetine 60 mg capsule,delayed 60 mg PO DAILY #30 mg 08/19/20 release (Cymbalta) erenumab-aooe 140 mg/mL 140 mg subcut QMONTH #1 mL 06/10/21 subcutaneous auto-injector (Aimovig Autoinjector) gabapentin 600 mg tablet 600 mg PO QHS #90 tabs 11/24/21 topiramate 100 mg tablet (Topamax) 100 mg PO QHS #90 tab-caps 11/24/21 cephalexin 500 mg tablet 500 mg PO TID 5 days #15 tabs 03/09/22 oxybutynin chloride 5 mg tablet 5 mg PO BID-TID PRN #10 tabs 03/10/22 Allergies Allergy/AdvReac Type Severity Reaction Status Date / Time acetaminophen [From Tylenol] AdvReac Intermediate Unverified 03/10/22 10:13 clobetasol AdvReac Intermediate Skin Rash Verified 03/10/22 10:13 codeine AdvReac Mild Verified 03/10/22 10:13 ibuprofen AdvReac Unverified 03/10/22 10:13 environmental Allergy Mild Uncoded 03/10/22 10:13 General Stated Complaint: Abd Prob MIKAELA: 3 Review of Systems <Otis Rubi NP - Last Filed: 03/11/22 09:46> Constitutional Constitutional: Denies chills, Denies fever(s), Reports malaise and Reports poor appetite ENT Ears, Nose, Mouth, and Throat: Denies neck pain Cardiovascular Cardiovascular: Reports chest pain (With patient stating secondary to lower abdominal pain), Denies syncope, Denies rapid heart rate and Denies dyspnea Respiratory Respiratory: Denies cough and Denies dyspnea Gastrointestinal Gastrointestinal: Reports as per HPI, Reports abdominal pain, Denies diarrhea, Reports nausea and Denies vomiting Genitourinary Genitourinary: Denies hematuria, Denies dysuria, Reports pelvic pain, Denies flank pain and Denies vaginal discharge Musculoskeletal Musculoskeletal: Reports back pain, Denies myalgias and Denies neck pain Integumentary/Breasts Skin/Breast: Denies rash Neurologic Neurologic: Denies syncope Psychiatric Psychiatric: Reports anxiety PFSH <Otis Rubi NP - Last Filed: 03/11/22 09:46> All Active Problems (Updated 03/10/22 @ 18:02 by JOCY Cuevas) Elevated troponin (Acute) Acute hemorrhagic cystitis (Acute) Abdominal pain (Acute) Elevated troponin (Acute) Avulsion fracture of right talus (Acute 12/30/21) Arthritis of carpometacarpal (CMC) joint of left thumb (Acute) Bilateral carpal tunnel syndrome (Acute) Paresthesia of hand, bilateral (Acute) Abnormal chest CT (Acute) Pulmonary hypertension (Acute) Atypical chest pain (Acute) PSVT (paroxysmal supraventricular tachycardia) (Acute) Acute non-ST elevation myocardial infarction (NSTEMI) (Acute) Right upper quadrant abdominal pain (Acute) Restless legs syndrome (Acute) Rhinitis, nonallergic, chronic (Acute) Tendinitis (Acute) Chest pain (Acute) Migraine headache without aura (Acute) Lichen sclerosus (Acute) Migraine with aura and without status migrainosus, not intractable (Acute 02/24/16) Medical History Acute bronchitis Acute non-ST elevation myocardial infarction (NSTEMI) Arthritis of carpometacarpal (CMC) joint of left thumb Asthma [facility] (closed head injury) Chronic heart failure with preserved ejection fraction COVID-19 Depression Elevated troponin I level Endometriosis Infiltrate of lower lobe of left lung present on imaging study Insomnia Left lateral epicondylitis Left wrist pain Migraine Non-ST elevation AK (NSTEMI) MARYLOU (obstructive sleep apnea) Overweight Surgical History History of partial hysterectomy Family History Daughter Migraines Mother Hypertension Father Heart disease Social History Smoking/Tobacco Use Status: Never Smoking risk assessment performed?: Yes Alcohol Intake: never Drug use: Never Substance use type: does not use Current gender identity: female Do you feel safe at home: Yes Do you feel safe in your relationship?: Yes Female Reproductive History Menstrual Menopause type: surgical History History 2 Para 2 Hx # Term Pregnancies Multiple births Hx # Pregnancies Ectopic pregnancies AB induced Hx Number of Living Children AB spontaneous Exam <Otis Rubi NP - Last Filed: 03/11/22 09:46> Const General: cooperative Orientation: alert, awake and oriented x3 Resp Effort & Inspection: normal respiratory effort and able to speak in complete sentences Auscultation: clear to auscultation bilaterally Cardio Rate: regular rate Rhythm: regular rhythm Heart Sounds: S1 normal and S2 normal GI Inspection: normal to inspection Palpation: soft, no hepatosplenomegaly, not firm, no guarding, no masses, no pulsatile masses, not rigid, no splenomegaly and tender suprapubicly; not at McBurney's point and Vaughn's sign negative Auscultation: normal bowel sounds Back/Spine/Pelvis Back: no CVA tenderness Thoracic/Lumbar Spine: No pain with thoraco-lumbar ROM and No lumbar spinal tenderness Neuro General: patient alert, patient awake, patient oriented x3, gait normal and moves all extremities Course <Otis Rubi NP - Last Filed: 03/11/22 09:46> Vital Signs Vital signs: Vital Signs Temperature 36.6 C 03/10/22 10:08 Pulse 58 L 03/10/22 10:08 Respiratory Rate 18 03/10/22 10:08 Blood Pressure 127/64 03/10/22 10:08 Pulse Oximetry 98 03/10/22 10:08 Temperature 36.6 C 03/10/22 10:08 Temperature Source Temporal Artery Scan 03/10/22 10:08 Pulse 58 L 03/10/22 10:08 Respiratory Rate 18 03/10/22 10:08 Blood Pressure 127/64 03/10/22 10:08 Blood Pressure Position Sitting 03/10/22 10:08 Pulse Oximetry 98 03/10/22 10:08 Oxygen Delivery Method Room Air 03/10/22 10:08 Oxygen Flow Rate 0 03/10/22 10:08 Lab/Test Results Lab/Test Results: Laboratory Tests Range/Units 03/10/22 10:25 WBC (4.4-10.8) 10^3/uL 6.87 RBC (3.93-5.22) 10^6/uL 4.98 Hgb (11.2-15.7) g/dL 15.4 Hct (36.0-46.0) % 47.8 H MCV (80-95) fL 96 H MCH (27.0-33.0) pg 30.9 MCHC (32.0-36.0) % 32.2 RDW (11.7-14.6) % 12.5 Plt Count (130-400) 10^3/uL 266 MPV (8.0-11.0) fL 11.1 H Immature Gran % 0.1 Neutrophils % 63.6 Lymphocytes % 26.5 Monocytes % 6.3 Eosinophils % 3.1 Basophils % 0.4 Nucleated RBC % (0.0-0.3) % 0.0 Absolute Neutrophils (1.2-6.7) 10^3/uL 4.37 Absolute Lymphocytes (1.2-3.4) 10^3/uL 1.82 Absolute Monocytes (0.1-0.8) 10^3/uL 0.43 Absolute Eosinophils (0.0-0.7) 10^3/uL 0.21 Absolute Basophils (0.0-0.2) 10^3/uL 0.03 Sign Out <Otis Rubi NP - Last Filed: 03/11/22 09:46> Sign Out Data: Sign Out Comment: Patient pending repeat CT abdomen results with oral contrast prior to disposition. Last updated by Otis Rubi NP at 03/10/22 16:13
[2022-03-10] MEDS: HYDROmorphone 2 MG/ML SYR 1 MG IVP (10:51)
[2022-03-10] MEDS: Ondansetron O.D.T. 4 MG TABEF PO (10:51)
[2022-03-10 11:00] LABS: ALT 30 U/L (14-59); AST 23 U/L (15-37); Albumin 4.4 g/dL (3.4-5.0); Alkaline Phosphatase 65 U/L (46-116); Anion Gap 10.6 mmol/L (3-11); BUN 29 mg/dL (7-18); Bilirubin, Total 0.6 mg/dL (0.2-1.0); CO2 23.4 mmol/L (21.0-32.0); CREATININE 1.2 mg/dL (0.55-1.02); Calcium 9.1 mg/dL (8.5-10.1); Chloride 107 mmol/L (98-107); Estimated GFR 54.13 (mL/min/1.73m2); Glucose 147 mg/dL (74-106); Lipase 89 U/L (73-393); Potassium 3.9 mmol/L (3.5-5.1); Sodium 141 mmol/L (136-145); Total Protein 8.5 g/dL (6.4-8.2)
--- NOTE | 2022-03-10 11:00 | DI.CT_ITS ---
Exam(s) CT THORAX ABD/PEL CTA EXAM: CT THORAX ABD/PEL CTA CLINICAL HISTORY: Abdominal pain radiating to back. TECHNIQUE: Imaging Protocol: Axial computed tomography images with coronal and sagittal reformatted images were created and reviewed CONTRAST MATERIAL: Intravenous: Omnipaque 350 Contrast volume:100 ml Oral: None COMPARISON: CT CT RENAL COLIC WO from 03/09/2022 FINDINGS: CHEST: AORTA: Ascending thoracic aorta exhibits normal diameter 3 cm. There is also no dilatation of the ao rtic arch and descending thoracic aorta and there is no evidence of aortic dissection. Abdominal aorta is moderately atherosclerotic without evidence of aneurysm. 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 There appears to be a stenosis at the origin of the right renal arter y. Left renal artery is patent The inferior mesenteric artery is patent. Some atherosclerotic disease is seen in the aorta at and d istal to the inferior mesenteric artery origin. Mild disease at the bifurcation of the aorta and ext ending into the origin of the left common iliac artery but there is no tight stenosis nor dissection at this level. Both common iliac arteries exhibit normal diameters throughout their length as do the external iliac arteries and both internal iliac arteries are patent and nonaneurysmal. Both common femoral arteries patent and not enlarged. LUNGS: There is mild increased haziness lower half of lung teran particularly left lower lobes inclu ding superior segment of the left lower lobe and basal segments both lungs. Probably related to air trapping. No pleural effusions. No ominous focal pulmonary nodules evident. There are no significa nt focal findings in the trachea and mainstem bronchi. There is no bronchiectasis.. MEDIASTINUM: Slightly enlarged subcarinal lymph nodes are noted. Also slightly enlarged left hilar l ymph nodes. No supraclavicular nor axillary adenopathy.Visualized thyroid appears unremarkable. CARDIAC: Heart size slightly prominent. Left atrial prominence no calcification of the mitral valve annulus. Pulmonary arteries: No central embolus. No obvious emboli more distally AORTA: Caliber of the thoracic aorta is within normal limits.There is no evidence of aortic dissectio n. ABDOMEN: There is no ascites. LIVER: Liver is diffusely hypodense implying steatosis. There is some fatty parenchymal sparing in t he right hepatic lobe evident. No discrete focal mass seen the liver. There are no dilated intrahep atic ducts. GALLBLADDER/BILIARY: No obvious gallbladder pathology. CBD is not dilated. PANCREAS: No evidence of pancreatic mass nor dilatation of the pancreatic duct. SPLEEN: Spleen is not enlarged. There are no intrasplenic lesions. Splenic and portal veins are white nt. ADRENALS: There are no significant adrenal masses. KIDNEYS: There is some scarring in the posterior cortex of the right kidney at midpole level. No clayton id lesions nor cysts in either kidney. No calculi nor hydronephrosis.. ABDOMINAL AORTA: See above. 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 No isch emic appearing bowel loops. LYMPH NODES: There is no retroperitoneal nor para-aortic adenopathy. No obvious mesenteric masses. ABDOMINAL WALL: No evidence of significant anterior abdominal wall hernia. GI: No ischemic appearing bowel loops, given the stenosis in the proximal superior mesenteric artery. The cecum is mobile and located in the left side of the abdomen. The appendix is not identified. No obvious evidence of appendicitis. PELVIS: LYMPH NODES: There is no intrapelvic nor inguinal adenopathy. GI: no evidence of sigmoid diverticulitis. URINARY BLADDER: No calculi nor masses evident REPRODUCTIVE: Uterus is surgically absent. There are no abnormal adnexal masses. No free fluid in t he pelvis. OSSEOUS: No significant osseous lesions. IMPRESSION: 1. Mild slightly asymmetric haziness/ground-glass pattern in both lower lobes. Doubtful for Covid 19 . There are slightly enlarged subcarinal and left hilar lymph nodes noted. 2. No evidence of aortic dissection, as per request. No evidence of abdominal aortic aneurysm althou gh the aorta is somewhat atherosclerotic in the abdomen. Also noted is approximately 80 percent sten osis in the proximal superior mesenteric artery. No evidence of filling defects more distally in thi s vessel to suggest emboli. There are no ischemic appearing bowel loops. 3. Cecum appears mobile, slightly prominent, and located in left side of the abdomen. Appendix is no t able to be identified. 4. Uterus is surgically absent. No abnormal adnexal masses. Recommend repeat scanning with oral contrast. Discussed by phone with ER provider RADIATION DOSE DELIVERED: 1,383.27mGy.cm Total DLP DATA REPOSITORY: All CT scans at this facility are submitted to the National Radiology Data Registry (NRDR) Dose Index Registry (DIR) with the [employer] (ACR). RADIATION OPTIMIZATION: All CT scans at this facility use at least one of these dose optimization te chniques: automated exposure control; mA and/or kV adjustment per patient size (includes targeted exa ms where dose is matched to clinical indication); or iterative reconstruction.
[2022-03-10 11:02] LABS: Bilirubin Negative (Negative); Blood Trace-lysed (Negative); Clarity Clear (Clear); Glucose >=1000 mg/dL (Negative); Ketones Negative (Negative); Leukocyte Esterase Negative (Negative); Nitrite Negative (Negative); Specific Gravity 1.025 (1.005-1.025); Urobilinogen 0.2 EU/dL (Up TO 0.2); pH 5.5 (5-8)
[2022-03-10 11:10] LABS: Troponin I 615 ng/L (<or=60)
[2022-03-10 11:20] LABS: Bacteria Negative HPF (Negative); C & S Indicated? No; Casts Negative LPF (Negative); Crystals Negative HPF (Negative); Epithelial Cells Few HPF (Negative); Mucus Negative (Negative); RBC 0-2 HPF (0-2); WBC Negative HPF (0-5)
[2022-03-10] MEDS: Omnipaque 350 MG/ML 100 ML BTL IJ (11:51)
--- NOTE | 2022-03-10 12:00 | RT.EKG_ITS ---
APPROVED REPORT Exam: Resting ECG Reason for Exam: chest pain Patient Location: E HR:48 bpm ECG Measurements Heart Rate 48 AXIS ND 196 P 45 QRSd 94 QRS 58 QT 532 T 31 QTc 478 Conclusion Sinus bradycardia...rate< 60 ST depr inferior leads...ST <-0.10mV, II III aVF. Nonspecific
[2022-03-10 12:21] LABS: Source Nasal/Nares
--- NOTE | 2022-03-10 12:45 | DI.CT_ITS ---
Exam(s) CT ABDOMEN PELVIS WO EXAM: CT ABDOMEN PELVIS WO CLINICAL HISTORY: Abdominal pain. TECHNIQUE: Imaging Protocol: Axial computed tomography images with coronal and sagittal reformatted images were created and reviewed CONTRAST MATERIAL: Intravenous: none Oral: None COMPARISON: CT CT RENAL COLIC WO from 03/09/[address] THORAX ABD/PEL CTA from 03/10/2022 FINDINGS: VISUALIZED LUNG BASES: No nodules nor pleural effusions evident. ABDOMEN: There is no ascites. LIVER: There are no obvious focal hepatic lesions evident of this noninfused study. GALLBLADDER/BILIARY: No obvious gallbladder pathology. CBD is not dilated. PANCREAS: No evidence of pancreatic mass nor dilatation of the pancreatic duct. SPLEEN: Spleen is not enlarged. No obvious intrasplenic lesions. Tiny calcified granuloma in the an terior spleen noted. ADRENALS: There are no significant adrenal masses. KIDNEYS:No cysts evident. No solid renal masses. No calculi nor hydronephrosis. . ABDOMINAL AORTA: Calcified but not enlarged. LYMPH NODES: There is no retroperitoneal nor paraaortic adenopathy. ABDOMINAL WALL: No evidence of significant anterior abdominal wall nor inguinal hernia. GI: There is no evidence of bowel obstruction, free air, nor abscess. PELVIS: LYMPH NODES: There is no intrapelvic nor inguinal adenopathy. GI: The appendix is difficult to identify is separate structure. However, there is no evidence of ob vious acute appendicitis. No evidence of acute sigmoid diverticulitis. URINARY BLADDER: No calculi nor obvious masses evident REPRODUCTIVE: Uterus is surgically absent. No abnormal adnexal masses. No free fluid in the pelvis. OSSEOUS: No significant osseous lesions. Unchanged most node invagination the anterior aspect of the superior endplate of L2 vertebral body. IMPRESSION: 1. No significant acute findings in the abdomen pelvis. 2. Uterus is again noted be surgically absent. No abnormal adnexal masses. No free fluid in the pel vis. Called by myself to ER provider. RADIATION DOSE DELIVERED: 1,278.31mGy.cm Total DLP DATA REPOSITORY: All CT scans at this facility are submitted to the National Radiology Data Registry (NRDR) Dose Index Registry (DIR) with the [employer] (ACR). RADIATION OPTIMIZATION: All CT scans at this facility use at least one of these dose optimization te chniques: automated exposure control; mA and/or kV adjustment per patient size (includes targeted exa ms where dose is matched to clinical indication); or iterative reconstruction.
[2022-03-10 12:52] LABS: COVID-19 PCR Negative (Negative)
[2022-03-10] MEDS: Normal Saline 500 ML IV (12:56)
[2022-03-10 13:47] LABS: Troponin I 478 ng/L (<or=60)
== END 2022-03-10 18:13 | disposition home or self-care (01) ==
PROVIDERS: Nurse Practitioner Family; Emergency Provider Physician Assistant; PCP Physician Assistant
DX: R10.30 Lower abdominal pain, unspecified (principal); R77.8 Other specified abnormalities of plasma proteins; M54.9 Dorsalgia, unspecified; F32.A Depression, unspecified; I95.9 Hypotension, unspecified; R00.1 Bradycardia, unspecified; I70.1 Atherosclerosis of renal artery; J45.909 Unspecified asthma, uncomplicated; I25.2 Old myocardial infarction; I50.32 Chronic diastolic (congestive) heart failure; Z86.16 Personal history of COVID-19; Z20.822 Contact with and (suspected) exposure to COVID-19
CPT/HCPCS: 71275; 80053; 83690; 86850; 86900; 86901; 87635; 93005; 96361; 96374; 99285; 74174; 74176; 81003; 81015; 84484; 85025; 93010; 99284; J1170; J3490

== ENCOUNTER 2022-04-27 17:18 | Outpatient (REF) | payer BC, SELFPAY ==
[2022-04-27 18:29] LABS: Anion Gap 12.9 mmol/L (3-11); BUN 19 mg/dL (7-18); CO2 21.1 mmol/L (21.0-32.0); CREATININE 1.2 mg/dL (0.55-1.02); Chloride 108 mmol/L (98-107); Estimated GFR 54.13 (mL/min/1.73m2); Glucose 101 mg/dL (74-106); Potassium 3.6 mmol/L (3.5-5.1); Sodium 142 mmol/L (136-145)
== END 2022-04-27 17:19 | disposition home or self-care (01) ==
LOC: NCHCN 17:18
PROVIDERS: PCP Physician Assistant; Visit Provider Physician Assistant
DX: I50.9 Heart failure, unspecified (principal)
CPT/HCPCS: 80048

== ENCOUNTER 2022-06-06 09:13 | Emergency (ER) | payer BC, SELFPAY ==
[2022-06-06 09:26] VITALS: BP 121/68; PULSE 66; RESP 17; TEMP 37.1; O2SAT 97
--- NOTE | 2022-06-06 09:45 | DI.RAD_ITS ---
Exam(s) XR CHEST 2V PA LATERAL EXAM: XR CHEST 2V PA LATERAL CLINICAL HISTORY: Cough. TECHNIQUE: 2D digital imaging was performed. COMPARISON: CR,XR XR PORTABLE CHEST AP from 03/07/2022 FINDINGS: 2 views: Heart size is normal. The mediastinum is not widened. Lungs are clear. No infiltrates nor pleural effusions. IMPRESSION: No acute pulmonary findings. DATA REPOSITORY: RADIATION DOSE DELIVERED:
--- NOTE | 2022-06-06 09:52 | ED.GENADUL_ITS ---
Discharge Plan Disposition Patient Disposition: Home Condition: Stable Discharge Details Clinical Impression: Viral URI Primary Care Provider: Polo Pearce ED Provider: Magda Johnson Home Meds and New Rx's Prescriptions: New benzonatate 100 mg capsule 100 mg PO BID-TID PRN (Reason: cough) Qty: 14 0RF Rx Instructions: Take 1 capsule by mouth 2 or 3 times a day as needed for cough Continued ropinirole 1 mg tablet 1 mg PO DIRECTED Rx Instructions: administer 1-3 hours before bedtime, and one at bed time trazodone 50 mg tablet 50 mg PO QHS PRN Rx Instructions: 1-2 tabs qhs spironolactone 25 mg tablet 50 mg PO DAILY atorvastatin 80 mg tablet 80 mg PO QPM empagliflozin 10 mg tablet 10 mg PO DAILY Aimovig Autoinjector 140 mg/mL auto-injector 140 mg subcut QMONTH Qty: 1 11RF topiramate [Topamax] 100 mg tablet 100 mg PO QHS Qty: 90 3RF gabapentin 600 mg tablet 600 mg PO QHS Qty: 90 3RF fluticasone propionate [Flonase Allergy Relief] 9.9 ML spray,suspension 9.9 ml NS DAILY duloxetine [Cymbalta] 60 mg capsule,delayed release(DR/EC) 60 mg PO DAILY Qty: 30 2RF albuterol sulfate 90 mcg/actuation HFA aerosol inhaler 2 puff inhalation 6XD loratadine [Allergy Relief (loratadine)] 10 mg tablet 10 mg PO DAILY nitroglycerin 0.4 mg tablet, sublingual 0.4 mg sublingual Q5M PRN Rx Instructions: do not exceed 3 doses per episode furosemide [Lasix] 20 mg tablet 20 mg PO DAILY prochlorperazine maleate 5 mg tablet See Rx Instructions PO PRN PRN Rx Instructions: 1-2 orally as needed PRN; Dulera 200-5 mcg/actuation HFA aerosol inhaler 1 inh INHALATION PRN PRN Patient Comments: Inhale 2 inhalations by mouth twice daily oxybutynin chloride 5 mg tablet 5 mg PO BID-TID PRNQty: 10 0RF Discharge Instructions Instructions: Upper Respiratory Infection (ED) Additional Instructions: No evidence of pneumonia on the chest x-ray. Please take the cough medicine as directed you may also take [id number] cough and cold medicine as directed. Follow up with primary care provider in 3-5 days. Return to ED sooner if any worsening or concerns. Increase oral fluids. No evidence for COVID. Referrals: Polo Pearce [Primary Care Provider] - 3 days Medical Decision Making 52-year-old female presents with URI type symptoms for the last 2 to 3 days. She does have sick contacts. She reports cough shortness of breath. She does have a past medical history of NSTEMI, hypertension, migraine, high cholesterol, bronchitis, sleep apnea. COVID swab ordered, will order chest x-ray. COVID-negative, chest x-ray within normal limits. Will give Tessalon Perles and instructed follow-up with PCP. Discuss strict return instructions. This text was generated using [employer] system, please disregard any oddities of phrase or misspellings. Lab Data Lab results reviewed: Yes I reviewed the patient's lab results. Lab results narrative: Laboratory Tests Range/Units 06/06/22 09:56 COVID-19 Source Nasal/Nares SARS-CoV-2 (PCR) (Negative) Negative HPI General Mode of arrival: ambulatory . Date/Time Provider Initiated Documentation: 06/06/22 09:40 . Limitations to Documentation: no limitations . Information obtained by: patient, RN notes reviewed and old records reviewed . HPI Narrative: 52-year-old female presents with URI type symptoms for the last 2 to 3 days. She does have sick contacts. She reports cough shortness of breath. She does have a past medical history of NSTEMI, hypertension, migraine, high cholesterol, bronchitis, sleep apnea. She reports body aches and chills. Related Data Home Medications Medication Instructions Recorded Confirmed fluticasone propionate 50 9.9 ml NS DAILY 12/23/16 06/06/22 mcg/actuation nasal spray,suspension (Flonase Allergy Relief) ropinirole 1 mg tablet 1 mg PO DIRECTED 06/12/20 06/06/22 trazodone 50 mg tablet 50 mg PO QHS PRN 06/12/20 06/06/22 duloxetine 60 mg capsule,delayed 60 mg PO DAILY #30 mg 08/19/20 06/06/22 release (Cymbalta) mometasone-formoterol HFA 200 1 inh inhalation PRN PRN 03/23/21 06/06/22 mcg-5 mcg/actuation aerosol inhaler (Dulera) albuterol sulfate 90 mcg/actuation 2 puff inhalation 6XD 05/30/21 06/06/22 aerosol inhaler loratadine 10 mg tablet (Allergy 10 mg PO DAILY 05/30/21 06/06/22 Relief (loratadine)) atorvastatin 80 mg tablet 80 mg PO QPM 06/10/21 06/06/22 empagliflozin 10 mg tablet 10 mg PO DAILY 06/10/21 06/06/22 erenumab-aooe 140 mg/mL 140 mg subcut QMONTH #1 mL 06/10/21 06/06/22 subcutaneous auto-injector (Aimovig Autoinjector) furosemide 20 mg tablet (Lasix) 20 mg PO DAILY 09/25/21 03/10/22 nitroglycerin 0.4 mg sublingual 0.4 mg sublingual Q5M PRN 09/25/21 06/06/22 tablet prochlorperazine maleate 5 mg See Rx Instructions PO PRN PRN 09/25/21 06/06/22 tablet gabapentin 600 mg tablet 600 mg PO QHS #90 tabs 11/24/21 06/06/22 topiramate 100 mg tablet (Topamax) 100 mg PO QHS #90 tab-caps 11/24/21 06/06/22 spironolactone 25 mg tablet 50 mg PO DAILY 01/22/22 06/06/22 oxybutynin chloride 5 mg tablet 5 mg PO BID-TID PRN #10 tabs 03/10/22 06/06/22 benzonatate 100 mg capsule 100 mg PO BID-TID PRN cough #14 06/06/22 caps Previous Rx's Medication Instructions Recorded duloxetine 60 mg capsule,delayed 60 mg PO DAILY #30 mg 08/19/20 release (Cymbalta) erenumab-aooe 140 mg/mL 140 mg subcut QMONTH #1 mL 06/10/21 subcutaneous auto-injector (Aimovig Autoinjector) gabapentin 600 mg tablet 600 mg PO QHS #90 tabs 11/24/21 topiramate 100 mg tablet (Topamax) 100 mg PO QHS #90 tab-caps 11/24/21 oxybutynin chloride 5 mg tablet 5 mg PO BID-TID PRN #10 tabs 03/10/22 benzonatate 100 mg capsule 100 mg PO BID-TID PRN cough #14 06/06/22 caps Allergies Allergy/AdvReac Type Severity Reaction Status Date / Time acetaminophen [From Tylenol] AdvReac Intermediate Unverified 06/06/22 09:31 clobetasol AdvReac Intermediate Skin Rash Verified 06/06/22 09:31 codeine AdvReac Mild Verified 06/06/22 09:31 ibuprofen AdvReac Unverified 06/06/22 09:31 environmental Allergy Mild Uncoded 06/06/22 09:31 General Stated Complaint: RespSymp MIKAELA: 4 Review of Systems All systems reviewed & are unremarkable except as noted in HPI and below Respiratory Respiratory: Reports as per HPI and Reports cough PFSH All Active Problems (Updated 06/06/22 @ 10:33 by Magda Johnson NP) Viral URI (Acute) Avulsion fracture of right talus (Acute 12/30/21) Arthritis of carpometacarpal (CMC) joint of left thumb (Acute) Bilateral carpal tunnel syndrome (Acute) Paresthesia of hand, bilateral (Acute) Abnormal chest CT (Acute) Pulmonary hypertension (Acute) Atypical chest pain (Acute) PSVT (paroxysmal supraventricular tachycardia) (Acute) Acute non-ST elevation myocardial infarction (NSTEMI) (Acute) Right upper quadrant abdominal pain (Acute) Restless legs syndrome (Acute) Rhinitis, nonallergic, chronic (Acute) Tendinitis (Acute) Chest pain (Acute) Migraine headache without aura (Acute) Lichen sclerosus (Acute) Migraine with aura and without status migrainosus, not intractable (Acute 02/24/16) Medical History Acute bronchitis Acute non-ST elevation myocardial infarction (NSTEMI) Arthritis of carpometacarpal (CMC) joint of left thumb Asthma [facility] (closed head injury) Chronic heart failure with preserved ejection fraction COVID-19 Depression Elevated troponin I level Endometriosis Infiltrate of lower lobe of left lung present on imaging study Insomnia Left lateral epicondylitis Left wrist pain Migraine Non-ST elevation FL (NSTEMI) MARYLOU (obstructive sleep apnea) Overweight Surgical History History of partial hysterectomy Family History Daughter Migraines Mother Hypertension Father Heart disease Social History Smoking/Tobacco Use Status: Never Smoking risk assessment performed?: Yes Alcohol Intake: never Drug use: Never Substance use type: does not use Current gender identity: female Do you feel safe at home: Yes Do you feel safe in your relationship?: Yes Female Reproductive History Menstrual Menopause type: surgical History History 2 Para 2 Hx # Term Pregnancies Multiple births Hx # Pregnancies Ectopic pregnancies AB induced Hx Number of Living Children AB spontaneous Exam Narrative Exam Narrative: Constitutional: Alert and oriented x3. Appears stated age. Normal body habitus. Head: Normocephalic, no trauma. Eyes: Pupils PERRL, Red reflex noted, EOM's intact. Eyelids symmetrical without lesions, discharge, or swelling. ENT: Bilateral TM's WNL, External ear normal to inspection, no mastoid TTP, swelling, or erythema, Nasal turbinates WNL, no nasal discharge. Normal dentition, Posterior pharynx WNL, no exudate. Chest: RRR, Normal S1, S2, distal pulses intact. Resp: Lungs clear to auscultation bilaterally, no wheezes, rales, or rhonchi. Abdomen: Soft, non-distended, Normoactive bowel sounds all 4 quads. Musculoskeletal: Normal gait, 5/5 strength to all four extremities. Skin: No suspicious rashes or lesions. Capillary refill less than 2 sec. Neurologic: Cranial nerves II-XII intact. Alert and oriented x 3. Motor: No deficits noted. Course Vital Signs Vital signs: Vital Signs Temperature 37.1 C 06/06/22 09:26 Pulse 66 06/06/22 09:26 Respiratory Rate 17 06/06/22 09:26 Blood Pressure 121/68 06/06/22 09:26 Pulse Oximetry 97 06/06/22 09:26 Temperature 37.1 C 06/06/22 09:26 Temperature Source Oral 06/06/22 09:26 Pulse 66 06/06/22 09:26 Respiratory Rate 17 06/06/22 09:26 Respiratory Effort Normal 06/06/22 09:28 Respiratory Depth Normal 06/06/22 09:28 Blood Pressure 121/68 06/06/22 09:26 Blood Pressure Position Sitting 06/06/22 09:26 Pulse Oximetry 97 06/06/22 09:26 Oxygen Delivery Method Room Air 06/06/22 09:26 Oxygen Flow Rate 0 06/06/22 09:26 Pain Level 7 06/06/22 09:26
--- NOTE | 2022-06-06 10:23 | DI.VRAD_ITS ---
PROCEDURE INFORMATION: Exam: XR Chest Exam date and time: 06/06/2022 10:09 AM Age: 52 years old Clinical indication: Cough TECHNIQUE: Imaging protocol: Radiologic exam of the chest. Views: 2 views. COMPARISON: XR PORTABLE CHEST AP 03/07/2022 2:55 PM FINDINGS: Lungs: Unremarkable. No consolidation. Pleural spaces: Unremarkable. No pleural effusion. No pneumothorax. Heart/Mediastinum: Unremarkable. No cardiomegaly. Bones/joints: Unremarkable. IMPRESSION: No acute findings. Dictated and Authenticated by: Louann Reynolds MD. Ordering:REECE Man MD
[2022-06-06 10:26] LABS: Source Nasal/Nares
[2022-06-06 10:59] LABS: COVID-19 PCR Negative (Negative)
[2022-06-06 11:18] VITALS: BP 115/61; PULSE 65; RESP 18; TEMP 37.2; O2SAT 98
[2022-06-06] MEDS: Benzonatate 100 MG CAP PO ×2 (11:23)
== END 2022-06-06 11:25 | disposition home or self-care (01) ==
PROVIDERS: Emergency Provider Registered Nurse Emergency; PCP Physician Assistant
DX: J06.9 Acute upper respiratory infection, unspecified (principal); I11.0 Hypertensive heart disease with heart failure; I50.32 Chronic diastolic (congestive) heart failure; I25.2 Old myocardial infarction; Z86.16 Personal history of COVID-19; J45.909 Unspecified asthma, uncomplicated; Z20.822 Contact with and (suspected) exposure to COVID-19; Z79.51 Long term (current) use of inhaled steroids
CPT/HCPCS: 87635; 99283; 71046; 99284

== ENCOUNTER 2022-07-27 10:16 | Observation (INO) | payer BC, SELFPAY ==
[2022-07-27] VITALS (7 sets, daily range): BP systolic 113–128; BP diastolic 58–72; PULSE 44–55; RESP 18; TEMP 36.4–37; O2SAT 95–100
--- NOTE | 2022-07-27 | DI.US_ITS ---
Exam(s) US EXTREMITY VENOUS BI EXAM: US EXTREMITY VENOUS BI CLINICAL HISTORY: pulmonary emboli. TECHNIQUE: Bilateral lower extremity venous ultrasound performed using grayscale, color-flow, and sp ectral Doppler analysis. COMPARISON: No exams were available for comparison FINDINGS: The right common femoral, femoral and popliteal veins demonstrate normal compressibility, augmentatio n, and color Doppler. The posterior tibial veins are patent. The saphenofemoral junction is unremarka ble. There is no evidence of a Tomlin's cyst. The soft tissues are unremarkable. The left common femoral, femoral and popliteal veins demonstrate normal compressibility, augmentation , and color Doppler. The posterior tibial veins are patent. The saphenofemoral junction is unremarkab le. There is no evidence of a Tomlin's cyst. The soft tissues are unremarkable. IMPRESSION: 1. No evidence of a right lower extremity DVT. 2. No evidence of a left lower extremity DVT. DATA REPOSITORY:
--- NOTE | 2022-07-27 10:15 | RT.EKG_ITS ---
APPROVED REPORT Exam: Resting ECG Reason for Exam: chest pain Patient Location: E HR:44 bpm ECG Measurements Heart Rate 44 AXIS SD 188 P 44 QRSd 87 QRS 59 QT 540 T 51 QTc 465 Conclusion Sinus bradycardia...rate< 60 Probable left atrial enlargement...P >50mS, <-0.10mV V1 Abnrm R prog, consider ASMI or lead placement...Q >30mS, diminished R, V1-V2 Minimal ST depression, diffuse leads...ST <-0.03mV, ant/lat/inf
--- NOTE | 2022-07-27 10:33 | W.ED.GENAD ---
Discharge Plan Disposition Patient Disposition: Admit to [facility] Condition: Poor Discharge Details Chief Complaint: Chest Pain Clinical Impression: Pulmonary emboli, Abnormal chest CT, Elevated troponin I level Admit Date/Time: 07/27/22 13:00 Admit Provider: Antonio Duncan Attending Provider: Antonio Duncan Primary Care Provider: Polo Pearce ED Provider: Michelle Dalal Discharge Data Discharge Date/Time-TO BE ENTERED AT DEPARTURE: 07/27/22 13:31 Medical Decision Making Patient is a pleasant 52-year-old female with past medical history pertinent for PSVT, NSTEMI, asthma, MARYLOU, presents today with chief complaint of chest pain and fatigue. Patient describes a chronic stable angina for quite some time. States that this has been unchanged. However, over recent days she has become profoundly fatigued to the point that she feels like she is ready go back to bed as soon as she wakes up. She states that she does have the exertional component to her chest pain. However, she also is now endorsing some pleuritic chest discomfort which is atypical for her. Says that some acid reflux which is normal for her. She states that she has been feeling short of breath and feels like this is associated with increased retention of fluid in her abdomen. She reports that she often has issues with ascites. Denies any liver dysfunction or history of alcohol abuse. She states that Ritts atypical, and followed by her phlebotomy services technician is that she often does not get lower extremity edema with this and tends to consolidate more in the abdomen. No recent change in her medications. Denies any fevers or chills. Denies any abdominal pain. On exam, patient appears nontoxic. Lungs are clear, normal cardiac exam. Abdomen is enlarged but is not frankly firm or tender. Small amount of fluid. No caput medusa. No lower extremity edema. No calf tenderness. 2+ distal pulses. Patient does report that she has family history of blood clot but is unclear exactly the history of this. Fairly broad differential at this time. Certainly concern for potential ACS although patient is describing more of a stable angina at this time. More concerned with this rather diffuse, nonexertional fatigue which is what prompted her to come in today. I did consider thyroid dysfunction. Also considered fluid overload and will obtain BNP for further evaluation, with her pleuritic discomfort and fatigue and shortness of breath, also consider potential PE but I do find this less likely. We will screen with a D-dimer. Discussed this plan with the patient is in agreement. She states that she did previously take aspirin has not been taking this recently. She has had chest pain today we will give her a of aspirin today. She does report tick exposure, with her vague symptoms also considered tick borne illness. ECG obtained and reviewed by Dr. Bautista. Patient has a sinus bradycardia but no acute ischemic changes. Labs reviewed. No leukocytosis. Stable H&H. D-dimer slightly elevated out of age-adjusted normal at 556. Discussed with the patient we will move forward with a CTA for potential PE. Creatinine is elevated 1.3 but this is baseline for the patient. Her BNP is elevated at 2300 which, while she has been this high before, is on the higher end for her. We will give a dose of Lasix. Her troponin is also elevated at 451 which appears to be baseline for the patient. Wondering if this could be associated with possible PE. Again, we will move forward with CTA, continue to monitor and will repeat troponin.Given full dose ASA Contacted by radiologist. Emboli in RUL, no infarct. Fidings of HF but no RV strain. Cardiomegally, thought to be unrelated. Ground glass but not consistent with covid, more like edema which correlates with history. Discussed findings with the patient. She and I discussed risks/benefits of anticoagulation. With her multitude of symptoms, HF exacerbation, PE, elevated troponin, fatigue, plan to admit for medical optimization and monitoring. Hwak is in agreement with this plan. Consulted with hospitalist and will begin the patient on Eliquis. She is in stable condition, resting comfortably without CP at tthis time. HPI General Date/Time Provider Initiated Documentation: 07/27/22 10:22. Limitations to Documentation: no limitations. Information obtained by: patient, RN notes reviewed and old records reviewed. History of Present Illness 52 year old F presents to the emergency department with the chief complaint of chest pain, fatigue, abdominal swelling, described as moderate and similar to prior episodes (CP is overall same as previous, does have new area of pleuritic pain), Quality is described as aching and sharp, and is localized to the chest. Patient reports no radiation. Patient started experiencing this unknown (has had chronic, stable angina but newer discomfort began last week) and it has been intermittent and now resolved. Immobilization improves symptom(s), Movement worsens symptoms . Patient notes chest pain, loss of appetite, malaise and shortness of breath (with exertion); denies cough, fever/chills, headaches, nausea/vomiting and rash. Patient did receive the following treatments prior to arrival, none Related Data Home Medications Medication Instructions Recorded Confirmed fluticasone propionate 50 2 spray NS DAILY 12/23/16 07/27/22 mcg/actuation nasal spray,suspension (Flonase Allergy Relief) ropinirole 1 mg tablet 1 mg PO BID 06/12/20 07/27/22 duloxetine 60 mg capsule,delayed 60 mg PO DAILY #30 mg 08/19/20 07/27/22 release (Cymbalta) albuterol sulfate 90 mcg/actuation 2 puff inhalation Q4H PRN 05/30/21 07/27/22 aerosol inhaler loratadine 10 mg tablet (Allergy 10 mg PO DAILY PRN 05/30/21 07/27/22 Relief (loratadine)) atorvastatin 80 mg tablet 80 mg PO QPM 06/10/21 07/27/22 empagliflozin 10 mg tablet 10 mg PO DAILY 06/10/21 07/27/22 erenumab-aooe 140 mg/mL 140 mg subcut QMONTH #1 mL 06/10/21 07/27/22 subcutaneous auto-injector (Aimovig Autoinjector) nitroglycerin 0.4 mg sublingual 0.4 mg sublingual Q5M PRN 09/25/21 07/27/22 tablet gabapentin 600 mg tablet 600 mg PO QHS #90 tabs 11/24/21 07/27/22 topiramate 100 mg tablet (Topamax) 100 mg PO QHS #90 tab-caps 11/24/21 07/27/22 bumetanide 1 mg tablet 1 mg PO DAILY 07/27/22 07/27/22 trazodone 100 mg tablet 100 mg PO HS 07/27/22 07/27/22 Previous Rx's Medication Instructions Recorded duloxetine 60 mg capsule,delayed 60 mg PO DAILY #30 mg 08/19/20 release (Cymbalta) erenumab-aooe 140 mg/mL 140 mg subcut QMONTH #1 mL 06/10/21 subcutaneous auto-injector (Aimovig Autoinjector) gabapentin 600 mg tablet 600 mg PO QHS #90 tabs 11/24/21 topiramate 100 mg tablet (Topamax) 100 mg PO QHS #90 tab-caps 11/24/21 Allergies Allergy/AdvReac Type Severity Reaction Status Date / Time acetaminophen [From Tylenol] AdvReac Intermediate Unverified 06/06/22 09:31 clobetasol AdvReac Intermediate Skin Rash Verified 06/06/22 09:31 codeine AdvReac Mild Verified 06/06/22 09:31 ibuprofen AdvReac Unverified 06/06/22 09:31 environmental Allergy Mild Uncoded 06/06/22 09:31 General Stated Complaint: Chest Pain MIKAELA: 2 Review of Systems Constitutional Constitutional: Reports as per HPI, Denies chills, Denies fever(s), Denies headache(s), Denies lethargy and Reports weight gain (reports hx of edema in abdomen) Eyes Eyes: Denies change in vision ENT Ears, Nose, Mouth, and Throat: Denies dizziness and Denies headache(s) Cardiovascular Cardiovascular: Reports as per HPI Respiratory Respiratory: Reports as per HPI, Denies chest congestion and Denies cough Gastrointestinal Gastrointestinal: Reports as per HPI, Denies abdominal pain, Denies diarrhea, Denies nausea and Denies vomiting Musculoskeletal Musculoskeletal: Reports as per HPI and Denies back pain Integumentary/Breasts Skin/Breast: Reports as per HPI and Denies rash Neurologic Neurologic: Reports as per HPI, Denies dizziness and Denies headache(s) PFSH All Active Problems (Updated 07/28/22 @ 08:10 by JOCY Sosa) Elevated troponin I level (Acute) Chronic heart failure with preserved ejection fraction (Chronic) MARYLOU (obstructive sleep apnea) (Chronic) Pulmonary emboli (Acute) Avulsion fracture of right talus (Acute 12/30/21) Arthritis of carpometacarpal (CMC) joint of left thumb (Acute) Bilateral carpal tunnel syndrome (Acute) Paresthesia of hand, bilateral (Acute) Abnormal chest CT (Acute) Pulmonary hypertension (Acute) Atypical chest pain (Acute) PSVT (paroxysmal supraventricular tachycardia) (Acute) Acute non-ST elevation myocardial infarction (NSTEMI) (Acute) Right upper quadrant abdominal pain (Acute) Restless legs syndrome (Acute) Rhinitis, nonallergic, chronic (Acute) Tendinitis (Acute) Chest pain (Acute) Migraine headache without aura (Acute) Lichen sclerosus (Acute) Migraine with aura and without status migrainosus, not intractable (Acute 02/24/16) Medical History Acute bronchitis Acute non-ST elevation myocardial infarction (NSTEMI) Arthritis of carpometacarpal (CMC) joint of left thumb Asthma [facility] (closed head injury) Chronic heart failure with preserved ejection fraction COVID-19 Depression Elevated troponin I level Endometriosis Infiltrate of lower lobe of left lung present on imaging study Insomnia Left lateral epicondylitis Left wrist pain Migraine Non-ST elevation [place] (NSTEMI) MARYLOU (obstructive sleep apnea) Overweight Surgical History History of partial hysterectomy Family History Daughter Migraines Mother Hypertension Father Heart disease Social History Smoking/Tobacco Use Status: Never Smoking risk assessment performed?: Yes Alcohol Intake: never Drug use: Never Substance use type: does not use Current gender identity: female Do you feel safe at home: Yes Do you feel safe in your relationship?: Yes Female Reproductive History Menstrual Menopause type: surgical History History 2 Para 2 Hx # Term Pregnancies Multiple births Hx # Pregnancies Ectopic pregnancies AB induced Hx Number of Living Children AB spontaneous Exam Const General: cooperative, healthy appearing, comfortable, no acute distress and well developed Nutritional Appearance: well nourished and obese Orientation: alert, awake and oriented x3 HENMT Head: normal to inspection Ears: hearing grossly normal bilaterally Mouth: moist mucous membranes Chest Chest: normal inspection of the chest, normal palpation of entire chest wall and no crepitus Resp Effort & Inspection: normal respiratory effort, able to speak in complete sentences and no respiratory distress Auscultation: clear to auscultation bilaterally, no rales, no rhonchi and no wheezes Cardio Rate: regular rate Rhythm: regular rhythm Heart Sounds: S1 normal and S2 normal GI Inspection: no edema, non-distended and obesity Palpation: soft, no hepatosplenomegaly, not firm, no guarding, not rigid and nontender Auscultation: normal bowel sounds Back/Spine/Pelvis Back: no CVA tenderness Thoracic/Lumbar Spine: thoracic and lumbar spine normal to inspection Skin General skin exam: no rashes or lesions noted Trauma: no lacerations or abrasions Neuro General: patient alert, patient awake and patient oriented x3 Cognition: normal cognition Speech: speech normal Gait: normal gait Extrem General: normal to inspection, capillary refill normal, no pedal edema, no calf tenderness and normal gait Psych Appearance: grossly normal and well kempt Mental Status: mental status grossly normal Speech and Movement: speech and movement normal Course Vital Signs Vital signs: Vital Signs Temperature 37.0 C 07/27/22 10:21 Pulse 45 L 07/27/22 10:21 Respiratory Rate 18 07/27/22 10:21 Blood Pressure 117/66 07/27/22 10:21 Pulse Oximetry 95 07/27/22 10:21 Temperature 37.0 C 07/27/22 10:21 Temperature Source Oral 07/27/22 10:21 Pulse 45 L 07/27/22 10:21 Respiratory Rate 18 07/27/22 10:21 Respiratory Effort Normal, Non-Labored 07/27/22 10:28 Blood Pressure 117/66 07/27/22 10:21 Blood Pressure Position Sitting 07/27/22 10:21 Pulse Oximetry 95 07/27/22 10:21 Oxygen Delivery Method Room Air 07/27/22 10:21 Oxygen Flow Rate 0 07/27/22 10:21
[2022-07-27 11:00] LABS: Abs Immature Grans 0.02 10^3/uL (0.0-0.06); Absolute Basophil Count 0.06 10^3/uL (0.0-0.2); Absolute Eosinophil Count 0.23 10^3/uL (0.0-0.7); Absolute Lymphocyte Count 2.13 10^3/uL (1.2-3.4); Absolute Monocyte Count 0.42 10^3/uL (0.1-0.8); Absolute Neutrophil Count 4.27 10^3/uL (1.2-6.7); Basophils % 0.8; Eosinophils % 3.2; HCT 44.1 % (36.0-46.0); HGB 14.3 g/dL (11.2-15.7); Immature Grans % 0.3; Lymphocytes % 29.9; MCH 31.1 pg (27.0-33.0); MCHC 32.4 % (32.0-36.0); MCV 96 fL (80-95); MPV 11.6 fL (8.0-11.0); Monocytes % 5.9; Neutrophils % 59.9; Platelet Count 256 10^3/uL (130-400); RDW 13.2 % (11.7-14.6); RDW-SD 46.2 fL; WBC 7.13 10^3/uL (4.4-10.8)
[2022-07-27] MEDS: Aspirin 81 MG CHEW 324 MG CH (11:05)
[2022-07-27 11:15] LABS: PTT Activated 26.1 sec (21.5-31.9); Prothrombin Time 9.8 sec (9.3-11.0)
[2022-07-27 11:39] LABS: D-Dimer 556 ng/mlFEU (<500)
--- NOTE | 2022-07-27 11:45 | DI.CT_ITS ---
Exam(s) CT CHEST PE CTA EXAM: CT CHEST PE CTA CLINICAL HISTORY: pleuritic pain, left side, elevated dimer. TECHNIQUE: Imaging Protocol: Axial CT angiography was performed with multi-slice acquisition and mu lti-planar and/or 3D reconstructions. CONTRAST MATERIAL: Intravenous: Omnipaque 350 contrast volume:100 mL COMPARISON: CT CT ABDOMEN PELVIS WO from 03/10/[address] THORAX ABD/PEL CTA from 03/10/2022 CR,XR XR CHEST 2V PA LATERAL from 06/06/2022 FINDINGS: Tracheobronchial tree: Patent where visualized. Pulmonary parenchyma: Diffuse ground-glass opacities in the lungs. No focal consolidating infiltrate s are seen. No architectural distortion. Pulmonary Arteries: There are filling defects seen to branches of the pulmonary arteries to the right upper lobe. No saddle embolus is seen. Mediastinum and Jessica: No dominant adenopathy or fluid collection. The esophagus is unremarkable. Visualized thyroid gland: Unremarkable. Pleura: No effusion or pneumothorax. Heart: Cardiomegaly. The RV to LV ratio is less than 1. No evidence of right heart strain. Mild co ronary artery calcification is present. No pericardial effusion. Aorta: Thoracic aorta non-dilated. The thoracic aorta is not well opacified. Atherosclerosis is pres ent. Upper abdomen: There is reflux of contrast seen in the IVC and hepatic veins. Soft tissues: Unremarkable. Bones: Within normal limits for the patient's age. IMPRESSION: 1. There are filling defects seen in branches of the pulmonary arteries to the right upper lobe consi stent with pulmonary emboli. The RV to LV ratio is less than 1. 2. Cardiomegaly and findings suggestive of heart failure. 3. Diffuse ground-glass opacities in the lungs. Differential considerations should include include i nfectious processes, chronic interstitial disease, pulmonary edema or hemorrhage. Please correlate c linically. 4. Findings were discussed with Michelle Dalal at 12:50 p.m. on 07/27/2022. RADIATION DOSE DELIVERED: 650.58mGy.cm Total DLP DATA REPOSITORY: All CT scans at this facility are submitted to the National Radiology Data Registry (NRDR) Dose Index Registry (DIR) with the [employer] (A[employer]). RADIATION OPTIMIZATION: All CT scans at this facility use at least one of these dose optimization te chniques: automated exposure control; mA and/or kV adjustment per patient size (includes targeted exa ms where dose is matched to clinical indication); or iterative reconstruction.
[2022-07-27 11:51] LABS: ALT 34 U/L (14-59); AST 26 U/L (15-37); Albumin 3.5 g/dL (3.4-5.0); Alkaline Phosphatase 52 U/L (46-116); Anion Gap 9.1 mmol/L (3-11); BUN 19 mg/dL (7-18); Bilirubin, Total 0.4 mg/dL (0.2-1.0); CO2 20.9 mmol/L (21.0-32.0); CREATININE 1.3 mg/dL (0.55-1.02); Calcium 8.5 mg/dL (8.5-10.1); Chloride 109 mmol/L (98-107); Estimated GFR 49.17 (mL/min/1.73m2); Glucose 106 mg/dL (74-106); NT-proBNP 2390 pg/mL (<300); Potassium 4.4 mmol/L (3.5-5.1); Sodium 139 mmol/L (136-145); TSH (W/Ref FT4) 2.65 uIU/mL (0.36-3.74)
[2022-07-27 11:53] LABS: Troponin I 451 ng/L (<or=60)
[2022-07-27] MEDS: Furosemide 20 MG/2 ML VIAL IVP (12:14)
[2022-07-27] MEDS: Omnipaque 350 MG/ML 100 ML BTL IJ (12:25)
[2022-07-27] MEDS: Normal Saline - Diluent 50 ML VIAL IJ (12:25)
[2022-07-27] MEDS: Apixaban 5 MG TAB 10 MG PO ×2 (13:20→22:25)
--- NOTE | 2022-07-27 13:32 | NUR.NOTE ---
pt to US then [facility] floor. no tele order at this time
--- NOTE | 2022-07-27 14:25 | W.PM.HP.N ---
Date of service: 07/27/22 Time of Service: 14:26 Assessment and Plan Assessment and plan (1) Pulmonary emboli: Status: Acute Assessment and plan: no evidence of right heart strain by CT scan. No oxygen requirements referred to observation on telemetry started on apixaban bilateral lower ext ultrasounds pending echo not available. no previous history or risk factors identified, other than ? long covid dx (2) MARYLOU (obstructive sleep apnea): Status: Chronic Assessment and plan: home cpap machine as directed (3) Chronic heart failure with preserved ejection fraction: Status: Chronic Assessment and plan: last EF received lasix in the ED monitor I&O, daily weights. continue home lasix, spironalactone and empaglifozin. (4) Elevated troponin I level: Status: Acute Assessment and plan: chest pain is pleuritic. history of elevated troponin in the past no acute ST segment changes. will trend to ensure not rising. discussed with Dr Duncan. Review of Systems All systems reviewed & are unremarkable except as noted in HPI and below PFSH All Active Problems (Updated 07/28/22 @ 08:10 by JOCY Sosa) Elevated troponin I level (Acute) Chronic heart failure with preserved ejection fraction (Chronic) MARYLOU (obstructive sleep apnea) (Chronic) Pulmonary emboli (Acute) Avulsion fracture of right talus (Acute 12/30/21) Arthritis of carpometacarpal (CMC) joint of left thumb (Acute) Bilateral carpal tunnel syndrome (Acute) Paresthesia of hand, bilateral (Acute) Abnormal chest CT (Acute) Pulmonary hypertension (Acute) Atypical chest pain (Acute) PSVT (paroxysmal supraventricular tachycardia) (Acute) Acute non-ST elevation myocardial infarction (NSTEMI) (Acute) Right upper quadrant abdominal pain (Acute) Restless legs syndrome (Acute) Rhinitis, nonallergic, chronic (Acute) Tendinitis (Acute) Chest pain (Acute) Migraine headache without aura (Acute) Lichen sclerosus (Acute) Migraine with aura and without status migrainosus, not intractable (Acute 02/24/16) Medical History Acute bronchitis Acute non-ST elevation myocardial infarction (NSTEMI) Arthritis of carpometacarpal (CMC) joint of left thumb Asthma [facility] (closed head injury) Chronic heart failure with preserved ejection fraction COVID-19 Depression Elevated troponin I level Endometriosis Infiltrate of lower lobe of left lung present on imaging study Insomnia Left lateral epicondylitis Left wrist pain Migraine Non-ST elevation [place] (NSTEMI) MARYLOU (obstructive sleep apnea) Overweight Surgical History History of partial hysterectomy Family History Daughter Migraines Mother Hypertension Father Heart disease Social History Smoking/Tobacco Use Status: Never Smoking risk assessment performed?: Yes Alcohol Intake: never Drug use: Never Substance use type: does not use Current gender identity: female Do you feel safe at home: Yes Do you feel safe in your relationship?: Yes Female Reproductive History Menstrual Menopause type: surgical History History 2 Para 2 Hx # Term Pregnancies Multiple births Hx # Pregnancies Ectopic pregnancies AB induced Hx Number of Living Children AB spontaneous Meds Allergies and Home Medications Allergies Allergy/AdvReac Type Severity Reaction Status Date / Time acetaminophen [From Tylenol] AdvReac Intermediate Unverified 06/06/22 09:31 clobetasol AdvReac Intermediate Skin Rash Verified 06/06/22 09:31 codeine AdvReac Mild Verified 06/06/22 09:31 ibuprofen AdvReac Unverified 06/06/22 09:31 environmental Allergy Mild Uncoded 06/06/22 09:31 Home Medications Medication Instructions Recorded Confirmed Type fluticasone propionate 50 2 spray NS DAILY 12/23/16 07/27/22 History mcg/actuation nasal spray,suspension (Flonase Allergy Relief) ropinirole 1 mg tablet 1 mg PO BID 06/12/20 07/27/22 History duloxetine 60 mg capsule,delayed 60 mg PO DAILY #30 mg 08/19/20 07/27/22 Rx release (Cymbalta) albuterol sulfate 90 mcg/actuation 2 puff inhalation Q4H PRN 05/30/21 07/27/22 History aerosol inhaler loratadine 10 mg tablet (Allergy 10 mg PO DAILY PRN 05/30/21 07/27/22 History Relief (loratadine)) atorvastatin 80 mg tablet 80 mg PO QPM 06/10/21 07/27/22 History empagliflozin 10 mg tablet 10 mg PO DAILY 06/10/21 07/27/22 History nitroglycerin 0.4 mg sublingual 0.4 mg sublingual Q5M PRN 09/25/21 07/27/22 History tablet gabapentin 600 mg tablet 600 mg PO QHS #90 tabs 11/24/21 07/27/22 Rx topiramate 100 mg tablet (Topamax) 100 mg PO QHS #90 tab-caps 11/24/21 07/27/22 Rx bumetanide 1 mg tablet 1 mg PO DAILY 07/27/22 07/27/22 History trazodone 100 mg tablet 100 mg PO HS 07/27/22 07/27/22 History apixaban 5 mg (74 tabs) tablets in 5 mg PO ONCE #74 dose pk 07/28/22 Rx a dose pack erenumab-aooe 140 mg/mL 140 mg subcut QMONTH #1 mL 07/28/22 Rx subcutaneous auto-injector (Aimovig Autoinjector) Exam Const General: cooperative and no acute distress Nutritional Appearance: overweight Orientation: alert, awake and oriented x3 HENMT Head: normal to inspection, normocephalic and atraumatic Face and sinus: normal facial exam Eyes General: appearance normal, both eyes and all related structures Pupils: PERRL EOM: EOM intact bilaterally Neck Neck: normal visual inspection Chest Chest: normal inspection of the chest and no tenderness Resp Effort & Inspection: normal respiratory effort and able to speak in complete sentences Auscultation: clear to auscultation bilaterally Cardio Rate: bradycardic Rhythm: regular rhythm GI Inspection: normal to inspection Palpation: soft and nontender Back/Spine/Pelvis Thoracic/Lumbar Spine: thoracic and lumbar spine normal to inspection Skin General skin exam: no rashes or lesions noted Neuro General: patient alert, patient awake and patient oriented x3 Cognition: normal cognition Speech: speech normal Motor: muscle tone normal throughout Sensory Exam: no sensory deficits noted Extrem General: normal to inspection, full ROM, capillary refill normal, no calf tenderness bilaterally and no edema Other: R lower extremity in tall walking boot Psych Appearance: grossly normal Mental Status: mental status grossly normal Speech and Movement: speech and movement normal Affect: normal affect Results Labs 07/27/22 10:39 07/27/22 11:09 Labs: Laboratory Results - last 24 hr 07/27/22 07/27/22 07/27/22 10:39 10:39 10:39 WBC 7.13 RBC 4.60 Hgb 14.3 Hct 44.1 MCV 96 H MCH 31.1 MCHC 32.4 RDW 13.2 Plt Count 256 MPV 11.6 H Immature Gran % 0.3 Neutrophils % 59.9 Lymphocytes % 29.9 Monocytes % 5.9 Eosinophils % 3.2 Basophils % 0.8 Nucleated RBC % 0.0 Absolute Neutrophils 4.27 Absolute Lymphocytes 2.13 Absolute Monocytes 0.42 Absolute Eosinophils 0.23 Absolute Basophils 0.06 PT 9.8 INR 1.0 APTT 26.1 D-Dimer 556 H Sodium Cancelled Potassium Cancelled Chloride Cancelled Carbon Dioxide Cancelled Anion Gap Cancelled BUN Cancelled Creatinine Cancelled Est GFR (CKD-EPI 2020) Cancelled Glucose Cancelled Calcium Cancelled Magnesium Cancelled Total Bilirubin Cancelled AST Cancelled ALT Cancelled Alkaline Phosphatase Cancelled Troponin I Cancelled NT-Pro-B Natriuret Pep Cancelled Total Protein Cancelled Albumin Cancelled TSH Cancelled 07/27/22 07/27/22 10:48 11:09 WBC RBC Hgb Hct MCV MCH MCHC RDW Plt Count MPV Immature Gran % Neutrophils % Lymphocytes % Monocytes % Eosinophils % Basophils % Nucleated RBC % Absolute Neutrophils Absolute Lymphocytes Absolute Monocytes Absolute Eosinophils Absolute Basophils PT INR APTT D-Dimer Sodium 139 Potassium 4.4 Chloride 109 H Carbon Dioxide 20.9 L Anion Gap 9.1 BUN 19 H Creatinine 1.3 H Est GFR (CKD-EPI 2020) 49.17 Glucose 106 Calcium 8.5 Magnesium 2.0 Total Bilirubin 0.4 AST 26 ALT 34 Alkaline Phosphatase 52 Troponin I 451 H* NT-Pro-B Natriuret Pep 2390 H Total Protein 7.0 Albumin 3.5 TSH Cancelled 2.65 Last Vital Signs Temp 36.4 C L 07/27/22 14:22 Pulse 55 L 07/27/22 14:22 Resp 18 07/27/22 14:22 BP 128/71 07/27/22 14:22 Pulse Ox 100 07/27/22 14:22 Time Spent Time spent with Patient: 40-54 minutes Time was spent: preparing to see the patient(eg.review tests), obtaining and/or reviewing separately otained hiistory, ordering medications,tests, procedures, indepentently interpreting results and counseling the patient
--- NOTE | 2022-07-27 18:23 | TELEP.MEDR_ITS ---
Date of service: 07/27/22 Time of Service: 18:23 [facility] Allergies Allergies: acetaminophen [From Tylenol] Adverse Reaction (Intermediate, Unverified 06/06/22 09:31) clobetasol Adverse Reaction (Intermediate, Verified 06/06/22 09:31) Skin Rash codeine Adverse Reaction (Mild, Verified 06/06/22 09:31) ibuprofen Adverse Reaction (Unverified 06/06/22 09:31) environmental Allergy (Mild, Uncoded 06/06/22 09:31) Interview Person Interviewed: * Patient Quality Quality of Interview/Accuracy of Medication List: Good Sources Sources used to compile medication list: [email or web address] Medication List and [employer] Changes made to Home Medication List: ADDITIONS: * Bumetanide 1mg PO daily DELETIONS: * Benzonatate * Dulera * Furosemide * Oxybutynin * Prochlorperazine * Spironolactone CHANGES: * Flonase 2 sprays EN daily * Loratadine 10mg PO daily PRN * Trazodone 100mg PO qHS Additional Notes Additional Notes: * none Recommended Changes Recommended Changes(reason for recommendation): * none Attestation: The home medication list is now updated to the best of my knowledge and is ready to be reconciled by the provider. Please contact the [facility] Medication Reconciliation Pharmacist at for any questions.
--- NOTE | 2022-07-27 18:23 | TELEP.MEDREC ---
Date of service: 07/27/22 Time of Service: 18:23 [facility] Allergies Allergies: acetaminophen [From Tylenol] Adverse Reaction (Intermediate, Unverified 06/06/22 09:31) clobetasol Adverse Reaction (Intermediate, Verified 06/06/22 09:31) Skin Rash codeine Adverse Reaction (Mild, Verified 06/06/22 09:31) ibuprofen Adverse Reaction (Unverified 06/06/22 09:31) environmental Allergy (Mild, Uncoded 06/06/22 09:31) Interview Person Interviewed: Patient Quality Quality of Interview/Accuracy of Medication List: Good Sources Sources used to compile medication list: [employer] Medication List and [email or web address] Changes made to Home Medication List: ADDITIONS: Bumetanide 1mg PO daily DELETIONS: Benzonatate Dulera Furosemide Oxybutynin Prochlorperazine Spironolactone CHANGES: Flonase 2 sprays EN daily Loratadine 10mg PO daily PRN Trazodone 100mg PO qHS Additional Notes Additional Notes: none Recommended Changes Recommended Changes(reason for recommendation): none Attestation: The home medication list is now updated to the best of my knowledge and is ready to be reconciled by the provider. [facility] Pharmacist at for any questions.
[2022-07-27 18:32] LABS: Troponin I 447 ng/L (<or=60)
[2022-07-27] MEDS: Topiramate 100 MG TAB PO (22:24)
[2022-07-27] MEDS: traZODone 50 MG TAB PO (22:25)
[2022-07-27] MEDS: Gabapentin 600 MG TAB PO (22:25)
[2022-07-27] MEDS: Atorvastatin 40 MG TAB 80 MG PO (22:25)
[2022-07-28 00:05] VITALS: PULSE 46
[2022-07-28] MEDS: rOPINIRole 1 MG TAB PO (00:42)
[2022-07-28] MEDS: DULoxetine 30 MG CAP 60 MG PO (00:42)
[2022-07-28 00:45] VITALS: BP 105/63; PULSE 51; RESP 16; TEMP 36.2; O2SAT 97
[2022-07-28 03:59] VITALS: BP 113/73; PULSE 51; RESP 18; TEMP 36.6; O2SAT 99
[2022-07-28 07:00] VITALS: PULSE 49
--- NOTE | 2022-07-28 08:43 | PDOC.CMIN ---
Date of service: 07/28/22 Time of Service: 08:43 Care Management Initial Assmt Initial Assessment REASON FOR HOSPITALIZATION:: Pulmonary emboli, Chronic heart failure with preserved ejection fraction PREVIOUS FUNCTIONAL STATUS/SOCIAL/FAMILY SUPPORTS:: Indira lives in [facility] with her Marv. She has two adult children. 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 She drives and is independent at baseline. ADVANCE DIRECTIVES:: None on file Has patient been provided with info about the portal/API?: Yes Did the patient sign up for the portal?: Yes (Prior to admission) CODE STATUS:: Full Code INSURANCE COVERAGE / FINANCIAL ISSUES:: [place] BS of [place] Medicaid CURRENT HOME/COMMUNITY SERVICES/EQUIPMENT:: CPAP PRIMARY CARE PHYSICIAN:: Polo Pearce POTENTIAL DISCHARGE NEEDS:: Discharge plan, close community follow up. PATIENT/FAMILY EDUCATION NEEDS:: Review discharge instructions, limitations, medications and plan to follow up with community providers. Discuss ask me three. ANTICIPATED BARRIERS TO DISCHARGE:: None identified at this time TRANSPORTATION:: Via private vehicle with family. PLAN:: Anticipate Mihaela will discharge home with [facility] services (if indicated). She will follow up with community providers and her discharge plan of care as prescribed. PFSH All Active Problems (Updated 07/28/22 @ 08:10 by JOCY Sosa) Elevated troponin I level (Acute) Chronic heart failure with preserved ejection fraction (Chronic) MARYLOU (obstructive sleep apnea) (Chronic) Pulmonary emboli (Acute) Avulsion fracture of right talus (Acute 12/30/21) Arthritis of carpometacarpal (CMC) joint of left thumb (Acute) Bilateral carpal tunnel syndrome (Acute) Paresthesia of hand, bilateral (Acute) Abnormal chest CT (Acute) Pulmonary hypertension (Acute) Atypical chest pain (Acute) PSVT (paroxysmal supraventricular tachycardia) (Acute) Acute non-ST elevation myocardial infarction (NSTEMI) (Acute) Right upper quadrant abdominal pain (Acute) Restless legs syndrome (Acute) Rhinitis, nonallergic, chronic (Acute) Tendinitis (Acute) Chest pain (Acute) Migraine headache without aura (Acute) Lichen sclerosus (Acute) Migraine with aura and without status migrainosus, not intractable (Acute 02/24/16) Medical History Acute bronchitis Acute non-ST elevation myocardial infarction (NSTEMI) Arthritis of carpometacarpal (CMC) joint of left thumb Asthma [facility] (closed head injury) Chronic heart failure with preserved ejection fraction COVID-19 Depression Elevated troponin I level Endometriosis Infiltrate of lower lobe of left lung present on imaging study Insomnia Left lateral epicondylitis Left wrist pain Migraine Non-ST elevation [place] (NSTEMI) MARYLOU (obstructive sleep apnea) Overweight Surgical History History of partial hysterectomy Family History Daughter Migraines Mother Hypertension Father Heart disease Social History Smoking/Tobacco Use Status: Never Smoking risk assessment performed?: Yes Alcohol Intake: never Drug use: Never Substance use type: does not use Current gender identity: female Do you feel safe at home: Yes Do you feel safe in your relationship?: Yes Female Reproductive History Menstrual Menopause type: surgical History History 2 Para 2 Hx # Term Pregnancies Multiple births Hx # Pregnancies Ectopic pregnancies AB induced Hx Number of Living Children AB spontaneous
[2022-07-28 09:00] VITALS: BP 108/60; PULSE 60; RESP 18; TEMP 37.6; O2SAT 98
[2022-07-28] MEDS: Empaglifozin 10 MG TAB PO (09:02)
[2022-07-28] MEDS: Apixaban 5 MG TAB 10 MG PO (09:02)
[2022-07-28] MEDS: Bumetanide 1 MG TAB PO (09:02)
[2022-07-28 10:41] LABS: Lyme Ab w Rflx to Lyme Confirm Negative (Negative)
--- NOTE | 2022-07-28 11:00 | DSE_ITS ---
Date of service: 07/28/22 Time of Service: 11:00 DS: Diagnosis Discharge Diagnosis (1) Pulmonary emboli: Status: Acute (2) MARYLOU (obstructive sleep apnea): Status: Chronic (3) Chronic heart failure with preserved ejection fraction: Status: Chronic (4) Elevated troponin I level: Status: Acute Discharge Plan Disposition Patient Disposition: Home Condition: Stable Discharge Details Reason For Visit: Pulminary Embolism Admit Date/Time: 07/27/22 13:00 Admit Provider: Antonio Duncan Attending Provider: Antonio Duncan Primary Care Provider: Polo Pearce Hospital Course Hospital Course: This is a 52 year old female with complex medical history including heart failure, elevated troponin, pulmonary hypertension, PSVT, who presented to the ED with 3 day history of cough, shortness of breath and pleuritic chest pain. Work up in the ED shows pulmonary embolism. she was not requiring oxygen, vitals stable and no evidence of right sided heart strain. she was also found to have elevated troponin with no acute st segment changes and remained flat. Her chest pain remained reproducible and pleuritic and improving. she was also thought to be in some mild chf and received IV lasix with good effect. she remained on telemetry in [facility]. Echo was not available and bilateral DVT studies negative. she was stable and ready for discharge to home. she will follow up outpatient with pcp for further work up and management. discharged to home with no services. discussed with DR Duncan. Home Meds and New Rx's Prescriptions: New apixaban 5 mg (74 tabs) tablets,dose pack 5 mg PO ONCE Qty: 74 0RF Continued ropinirole 1 mg tablet 1 mg PO BID Rx Instructions: @ 1600 and 2100 atorvastatin 80 mg tablet 80 mg PO QPM empagliflozin 10 mg tablet 10 mg PO DAILY topiramate [Topamax] 100 mg tablet 100 mg PO QHS Qty: 90 3RF gabapentin 600 mg tablet 600 mg PO QHS Qty: 90 3RF fluticasone propionate [Flonase Allergy Relief] 9.9 ML spray,suspension 2 spray NS DAILY duloxetine [Cymbalta] 60 mg capsule,delayed release(DR/EC) 60 mg PO DAILY Qty: 30 2RF albuterol sulfate 90 mcg/actuation HFA aerosol inhaler 2 puff inhalation Q4H PRN loratadine [Allergy Relief (loratadine)] 10 mg tablet 10 mg PO DAILY PRN nitroglycerin 0.4 mg tablet, sublingual 0.4 mg sublingual Q5M PRN Rx Instructions: do not exceed 3 doses per episode Aimovig Autoinjector 140 mg/mL auto-injector 140 mg subcut QMONTH Qty: 1 11RF bumetanide 1 mg tablet 1 mg PO DAILY Patient Comments: TAKE ONE TABLET BY MOUTH EVERY DAY trazodone 100 mg tablet 100 mg PO HS Patient Comments: TAKE ONE TABLET BY MOUTH AT BEDTIME Discharge Instructions Instructions: Pulmonary Embolism (DC) Additional Instructions: take apixaban 10 mg twice daily for one week, then take 5 mg twice daily thereafter until directed by pcp. Stand Alone Forms: Nursing Discharge Form Referrals: Polo Pearce [Primary Care Provider] - (Office will call you with follow up appointment. ) Activity:: Activity as Tolerated Equipment/Supplies:: No Equipment Needed Diet:: As Tolerated Discharge Orders Discharge Orders: Discharge Order (Routine); Ordered 07/28/22 Ordered By: Mary García Discharge Data Discharge Date/Time-TO BE ENTERED AT DEPARTURE: 07/28/22 12:58 DS: Summary Time Spent with Patient providing and/or coordinating discharge services: Less than 30 minutes Status at Discharge Functional status at discharge: independent ambulation Overall status at discharge: patient is back to baseline Mental Status: mental status grossly normal Speech and Movement: speech and movement normal Mood: congruent mood Affect: normal affect Exam Const General: cooperative and no acute distress Nutritional Appearance: overweight Orientation: alert, awake and oriented x3 HENMT Head: normal to inspection, normocephalic and atraumatic Face and sinus: normal facial exam Eyes General: appearance normal, both eyes and all related structures Pupils: PERRL EOM: EOM intact bilaterally Neck Neck: normal visual inspection Chest Chest: normal inspection of the chest and no tenderness Resp Effort & Inspection: normal respiratory effort and able to speak in complete sentences Auscultation: clear to auscultation bilaterally Cardio Rate: bradycardic Rhythm: regular rhythm GI Inspection: normal to inspection Palpation: soft and nontender Back/Spine/Pelvis Thoracic/Lumbar Spine: thoracic and lumbar spine normal to inspection Skin General skin exam: no rashes or lesions noted Neuro General: patient alert, patient awake and patient oriented x3 Cognition: normal cognition Speech: speech normal Motor: muscle tone normal throughout Sensory Exam: no sensory deficits noted Extrem General: normal to inspection, full ROM, capillary refill normal, no calf tenderness bilaterally and no edema Other: R lower extremity in tall walking boot Psych Appearance: grossly normal Mental Status: mental status grossly normal Speech and Movement: speech and movement normal Mood: congruent mood Affect: normal affect DS: Data Vitals/I&O Vitals and I&O: Vital Signs Temperature 37.6 C H 07/28/22 09:00 Temperature Source Tympanic 07/28/22 09:00 Pulse 60 07/28/22 09:00 Pulse Rhythm Regular 07/28/22 09:37 Respiratory Rate 18 07/28/22 09:00 Respiratory Effort Normal 07/28/22 09:37 Respiratory Depth Normal 07/28/22 09:37 Respiratory Pattern Normal 07/28/22 09:37 Blood Pressure 108/60 07/28/22 09:00 Blood Pressure Position Sitting 07/27/22 10:21 Pulse Oximetry 98 07/28/22 09:00 Oxygen Delivery Method Room Air 07/28/22 09:00 Oxygen Flow Rate 0 07/28/22 09:00 Pain Level 4 07/28/22 09:00 Intake & Output 07/27/22 07/27/22 07/28/22 11:59 23:59 11:59 Intake Total 240 / 240 Output Total 800 / 800 750 / 750 Balance -560 / -560 -750 / -750 Weight 100.244 kg 37.9 kg Intake: Oral 240 / 240 Output: Urine 800 / 800 750 / 750 Other: Urine Color Yellow Yellow Urine Appearance Clear Clear Urine Odor Normal Voiding Methods Toilet Toilet Data Completed and Pending Labs on day of discharge: Labs from last 24 hours 07/27/22 07/27/22 07/27/22 18:05 11:09 10:48 WBC RBC Hgb Hct MCV MCH MCHC RDW Plt Count MPV Immature Gran % Neutrophils % Lymphocytes % Monocytes % Eosinophils % Basophils % Nucleated RBC % Absolute Neutrophils Absolute Lymphocytes Absolute Monocytes Absolute Eosinophils Absolute Basophils PT INR APTT D-Dimer Sodium 139 Potassium 4.4 Chloride 109 H Carbon Dioxide 20.9 L Anion Gap 9.1 BUN 19 H Creatinine 1.3 H Est GFR (CKD-EPI 2020) 49.17 Glucose 106 Calcium 8.5 Magnesium 2.0 Total Bilirubin 0.4 AST 26 ALT 34 Alkaline Phosphatase 52 Troponin I 447 H* 451 H* NT-Pro-B Natriuret Pep 2390 H Total Protein 7.0 Albumin 3.5 TSH 2.65 Cancelled B. divergens/MO-1 PCR Babesia duncani (PCR) Babesia microti DNA PCR Lyme Disease Antibody E.chaffeensis DNA (PCR) E.ewingii/canis DNA PCR E.muris eauclairensis (PCR) A. phagocytophilum (PCR) Blood B. miyamotoi (PCR) 07/27/22 07/27/22 07/27/22 10:39 10:39 10:39 WBC 7.13 RBC 4.60 Hgb 14.3 Hct 44.1 MCV 96 H MCH 31.1 MCHC 32.4 RDW 13.2 Plt Count 256 MPV 11.6 H Immature Gran % 0.3 Neutrophils % 59.9 Lymphocytes % 29.9 Monocytes % 5.9 Eosinophils % 3.2 Basophils % 0.8 Nucleated RBC % 0.0 Absolute Neutrophils 4.27 Absolute Lymphocytes 2.13 Absolute Monocytes 0.42 Absolute Eosinophils 0.23 Absolute Basophils 0.06 PT 9.8 INR 1.0 APTT 26.1 D-Dimer 556 H Sodium Potassium Chloride Carbon Dioxide Anion Gap BUN Creatinine Est GFR (CKD-EPI 2020) Glucose Calcium Magnesium Total Bilirubin AST ALT Alkaline Phosphatase Troponin I NT-Pro-B Natriuret Pep Total Protein Albumin TSH B. divergens/MO-1 PCR Pending Babesia duncani (PCR) Pending Babesia microti DNA PCR Pending Lyme Disease Antibody Pending E.chaffeensis DNA (PCR) Pending E.ewingii/canis DNA PCR Pending E.muris eauclairensis (PCR) Pending A. phagocytophilum (PCR) Pending Blood B. miyamotoi (PCR) Pending 07/27/22 10:39 WBC RBC Hgb Hct MCV MCH MCHC RDW Plt Count MPV Immature Gran % Neutrophils % Lymphocytes % Monocytes % Eosinophils % Basophils % Nucleated RBC % Absolute Neutrophils Absolute Lymphocytes Absolute Monocytes Absolute Eosinophils Absolute Basophils PT INR APTT D-Dimer Sodium Cancelled Potassium Cancelled Chloride Cancelled Carbon Dioxide Cancelled Anion Gap Cancelled BUN Cancelled Creatinine Cancelled Est GFR (CKD-EPI 2020) Cancelled Glucose Cancelled Calcium Cancelled Magnesium Cancelled Total Bilirubin Cancelled AST Cancelled ALT Cancelled Alkaline Phosphatase Cancelled Troponin I Cancelled NT-Pro-B Natriuret Pep Cancelled Total Protein Cancelled Albumin Cancelled TSH Cancelled B. divergens/MO-1 PCR Babesia duncani (PCR) Babesia microti DNA PCR Lyme Disease Antibody E.chaffeensis DNA (PCR) E.ewingii/canis DNA PCR E.muris eauclairensis (PCR) A. phagocytophilum (PCR) Blood B. miyamotoi (PCR) PFSH All Active Problems (Updated 07/28/22 @ 08:10 by JOCY Sosa) Elevated troponin I level (Acute) Chronic heart failure with preserved ejection fraction (Chronic) MARYLOU (obstructive sleep apnea) (Chronic) Pulmonary emboli (Acute) Avulsion fracture of right talus (Acute 12/30/21) Arthritis of carpometacarpal (CMC) joint of left thumb (Acute) Bilateral carpal tunnel syndrome (Acute) Paresthesia of hand, bilateral (Acute) Abnormal chest CT (Acute) Pulmonary hypertension (Acute) Atypical chest pain (Acute) PSVT (paroxysmal supraventricular tachycardia) (Acute) Acute non-ST elevation myocardial infarction (NSTEMI) (Acute) Right upper quadrant abdominal pain (Acute) Restless legs syndrome (Acute) Rhinitis, nonallergic, chronic (Acute) Tendinitis (Acute) Chest pain (Acute) Migraine headache without aura (Acute) Lichen sclerosus (Acute) Migraine with aura and without status migrainosus, not intractable (Acute 02/24/16) Medical History Acute bronchitis Acute non-ST elevation myocardial infarction (NSTEMI) Arthritis of carpometacarpal (CMC) joint of left thumb Asthma [facility] (closed head injury) Chronic heart failure with preserved ejection fraction COVID-19 Depression Elevated troponin I level Endometriosis Infiltrate of lower lobe of left lung present on imaging study Insomnia Left lateral epicondylitis Left wrist pain Migraine Non-ST elevation [place] (NSTEMI) MARYLOU (obstructive sleep apnea) Overweight Surgical History History of partial hysterectomy Family History Daughter Migraines Mother Hypertension Father Heart disease Social History Smoking/Tobacco Use Status: Never Smoking risk assessment performed?: Yes Alcohol Intake: never Drug use: Never Substance use type: does not use Current gender identity: female Do you feel safe at home: Yes Do you feel safe in your relationship?: Yes Female Reproductive History Menstrual Menopause type: surgical History History 2 Para 2 Hx # Term Pregnancies Multiple births Hx # Pregnancies Ectopic pregnancies AB induced Hx Number of Living Children AB spontaneous Time Spent with Patient Time Spent with Patient: <45 minutes Time was spent: preparing to see the patient(eg.review tests), obtaining and/or reviewing separately otained hiistory, ordering medications,tests, procedures, indepentently interpreting results and counseling the patient
[2022-07-28 11:11] VITALS: BP 116/75; PULSE 60; RESP 18; TEMP 36.8; O2SAT 96
--- NOTE | 2022-07-28 11:41 | PDOC.CMDIS ---
Date of service: 07/28/22 Time of Service: 11:41 LACE Index Scoring Tool Questions: Length of Stay (in days): 1 Was the patient admitted via the E.D.?: Yes Comorbidities: Previous M.I. E.D. Visits: 5 Answers: Total Score: 9 Risk of Readmission: Low Risk Care Management Discharge Plan Reason for Hospitalization: Pulmonary emboli, Chronic heart failure with preserved ejection fraction Discharge Plan: Mihaela is discharged home via private vehicle with family. She will follow up with community providers and her discharge plan of care as ordered. No new services are ordered. Patient/Family Education Needs: Review discharge instructions, limitations and plan to follow up with community providers. Discuss ask me three.
[2022-07-29 18:26] LABS: Anaplasma phagocytophilum Negative (Negative); B. miyamotoi PCR Negative (Negative); Babesia divergens/MO-1 Negative (Negative); Babesia duncani Negative (Negative); Babesia microti Negative (Negative); Ehrlichia chaffeensis Negative (Negative); Ehrlichia ewingii/canis Negative (Negative); Ehrlichia muris eauclairensis Negative (Negative)
== END 2022-07-28 12:58 | disposition home or self-care (01) ==
LOC: ER 10:47 → MS 13:39
PROVIDERS: Admitting Provider Family Medicine; Emergency Provider Physician Assistant; PCP Physician Assistant; Visit Provider Family Medicine
DX: I26.99 Other pulmonary embolism without acute cor pulmonale (principal); I47.1 Supraventricular tachycardia; I25.2 Old myocardial infarction; J45.909 Unspecified asthma, uncomplicated; G47.33 Obstructive sleep apnea (adult) (pediatric); I50.32 Chronic diastolic (congestive) heart failure; G25.81 Restless legs syndrome; R74.8 Abnormal levels of other serum enzymes; G43.109 Migraine with aura, not intractable, without status migrainosus; F32.A Depression, unspecified; E66.9 Obesity, unspecified; Z68.37 Body mass index [BMI] 37.0-37.9, adult
CPT/HCPCS: 36415; 71275; 80053; 87798; 93005; 96374; 99285; 83735; 83880; 84443; 84484; 85025; 85379; 85610; 85730; 86618; 93010; 93970; 99223; 99238; G0378; J1941; J3490

== ENCOUNTER 2022-07-29 11:03 | Outpatient (CLI) | payer BC, SELFPAY ==
[2022-08-04 10:59] LABS: Factor V Leiden(R506Q) Mut Negative (Negative)
[2022-08-04 11:01] LABS: Prothrombin G20210A Mutation Negative (Negative)
[2022-08-05 12:01] LABS: Protein C, Functional 132 % (71-199); Protein S, Functional >150 % (64-147)
== END 2022-07-29 11:04 | disposition home or self-care (01) ==
LOC: LBO 11:04
PROVIDERS: PCP Physician Assistant; Visit Provider Physician Assistant
DX: I26.99 Other pulmonary embolism without acute cor pulmonale (principal)
CPT/HCPCS: 36415; 81240; 81241; 85306; 85307; 85303

== ENCOUNTER 2022-07-29 18:54 | Emergency (ER) | payer BC, SELFPAY ==
[2022-07-29] VITALS (45 sets, daily range): BP systolic 69–129; BP diastolic 42–111; PULSE 46–61; RESP 12–24; TEMP 36.6; O2SAT 93–99
--- NOTE | 2022-07-29 19:00 | RT.EKG_ITS ---
APPROVED REPORT Exam: Resting ECG Reason for Exam: chest pain Patient Location: E HR:57 bpm ECG Measurements Heart Rate 57 AXIS DE 188 P 36 QRSd 93 QRS 57 QT 492 T 55 QTc 479 Conclusion Sinus bradycardia...rate< 60 Probable left atrial enlargement...P >50mS, <-0.10mV V1 Borderline ST depression, diffuse leads...ST <-0.07mV, ant/lat/inf Narrow complex sinus bradycardia at a rate of 57. Intervals within normal limits. T wave inversion in aVL more pronounced compared to prior dated earlier this week. ST segment depressions in V3 throu gh V6 more pronounced compared to prior. Inferior leads also with ST segment flattening. No ST segm ent elevations.
--- NOTE | 2022-07-29 19:24 | ED.GENADUL_ITS ---
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 50% Primary Care Provider: Polo Pearce ED Provider: Aaron Rodriguez [place] Meds and New Rx's Prescriptions: New aspirin 81 mg capsule 81 mg PO DAILY Qty: 30 0RF Continued ropinirole 1 mg tablet 1 mg PO BID Rx Instructions: @ 1600 and 2100 atorvastatin 80 mg tablet 80 mg PO QPM empagliflozin 10 mg tablet 10 mg PO DAILY topiramate [Topamax] 100 mg tablet 100 mg PO QHS Qty: 90 3RF gabapentin 600 mg tablet 600 mg PO QHS Qty: 90 3RF fluticasone propionate [Flonase Allergy Relief] 9.9 ML spray,suspension 2 spray NS DAILY duloxetine [Cymbalta] 60 mg capsule,delayed release(DR/EC) 60 mg PO DAILY Qty: 30 2RF albuterol sulfate 90 mcg/actuation HFA aerosol inhaler 2 puff inhalation Q4H PRN loratadine [Allergy Relief (loratadine)] 10 mg tablet 10 mg PO DAILY PRN nitroglycerin 0.4 mg tablet, sublingual 0.4 mg sublingual Q5M PRN Rx Instructions: do not exceed 3 doses per episode Aimovig Autoinjector 140 mg/mL auto-injector 140 mg subcut QMONTH Qty: 1 11RF bumetanide 1 mg tablet 1 mg PO DAILY Patient Comments: TAKE ONE TABLET BY MOUTH EVERY DAY trazodone 100 mg tablet 100 mg PO HS Patient Comments: TAKE ONE TABLET BY MOUTH AT BEDTIME apixaban 5 mg (74 tabs) tablets,dose pack 5 mg PO ONCE Qty: 74 0RF Discharge Instructions Additional Instructions: Please read all of the information that accompanies these instructions. You were seen in the emergency department for your facial numbness. Your CAT scan showed no sign of any bleeding in your brain. As we discussed, you did have a narrowing in your carotid artery for which the vascular team at [facility] recommended taking 81 mg of aspirin a day and following up with your primary care provider within the next week. Please schedule an appointment with your primary care provider later this week. Please return to the emergency department if develop any weakness difficulty speaking or any chest pain. Medical Decision Making This is an overall very well-appearing normothermic and not tachycardic 52-year-old female with recent diagnosis of acute PE adherent with outpatient apixaban now in the emergency department in setting of left-sided facial numbness and neck numbness concerning for possibility of arterial thrombosis. Patient unfortunately was not able to have an echocardiogram during her recent hospitalization secondary to lack of tech availability. She did have bilateral negative DVT studies. Chart review from [facility] indicates the patient had an echocardiogram performed last fall. There was reportedly no evidence of a PFO at that point. Given no PFO my suspicion for cardioembolic phenomenon is low. Given, the unclear etiology of her left facial numbness we will plan on a CTA of the patient's head and neck and a repeat CTA to assess for any progression of her PE. She is having left neck and arm not plethoric to suggest SVC syndrome. She has no rash to her face or neck to suggest zoster. Given the distribution of her numbness throughout her left face and on her left neck I am not concerned for CVA and I do not feel that the patient is a candidate for tPA. Furthermore given her apixaban use she is ineligible for CVA. She has no neurological deficits beyond some left facial numbness and based on a the diffuse nature of her numbness my suspicion for CVA is low. I considered meningitis however the patient has no nuchal rigidity. I considered encephalitis however she is not altered. We will assess electrolytes to ensure the patient does not have any acute electrolyte abnormalities. She has a history of migraines and this certainly could be a possible diagnosis. No sudden onset headache to suggest subarachnoid hemorrhage. She is not recently to suggest increased risk for cerebral venous sinus thrombosis. Furthermore she is not on any outpatient hormones. 8:48 PM CKD but no CATIE. Mildly elevated anion gap. No hyperglycemia. Not consistent with DKA. Mildly elevated BUN similar to prior. Elevated troponin consistent with myocardial injury similar and slightly improved compared to prior dated 2 days ago. Reassuring normal magnesium. CBC lacks anemia thrombocytopenia and leukocytosis. 9:[address] head with no acute abnormalities. CT angiogram concerning for calcified pl aques at the left carotid bulb with moderate to severe stenosis. No large vessel occlusion. 10 PM I spoke with Dr. Calloway from vascular surgery at [facility]. She advised 81 mg ASA. She did not feel that the patient's numbness in her face and head were related to this stenosis. 10:45 PM I spoke with the patient and advised her of vascular surgery recommendation for 81 mg of aspirin a day. Her numbness had not resolved but had not worsened. We discussed her CT scan which was stable. She was having no chest pain and a repeat troponin had not yet resulted. Even if it is slightly higher than before I do not think that there is any indication for heparinization. I have spoken with health community outreach manager Mirtha and asked her to help arrange for primary care follow-up within the next week. I also advised patient that if she developed any difficulty speaking any weakness in her arms or or any periods of confusion that she should return to the emergency department. She understood her return indications and was discharged with an empiric trial of expectant outpatient management. Chronic conditions affecting the care of the patient: Right-sided heart failure History obtained from an outside historian: N/A External record review: [facility] EMR Diagnostic interpretations performed by me: [Per my independent interpretation chest x-ray shows:] N/A Per my independent interpretation EKG shows: Narrow complex sinus bradycardia at a rate of 57. Intervals within normal limits. T wave inversion in aVL more pronounced compared to prior dated earlier this week. ST segment depressions in V3 through V6 more pronounced compared to prior. Inferior leads also with ST segment flattening. No ST segment elevations. Medications: N/A Social determinants of health affecting disposition: N/A Management discussed with: Vascular at [facility] Treatment/interventions considered: Hospitalization but deferred Response to therapies provided: N/A HPI General Date/Time Provider Initiated Documentation: 07/29/22 19:24 . HPI Narrative: This is a 52-year-old female with a history of MARYLOU diastolic heart failure and recent diagnosis of pulmonary embolism on outpatient apixaban. Patient presented to the ED 3 days ago in the setting of chest pain and shortness of breath. She was hospitalized overnight. Bilateral duplexes were performed and were negative for DVT. She now endorses swelling on the left side of her head and neck. She said that this started this evening. She had seen her PCP in follow-up earlier today. She has a follow-up appoint with a dry janitor tomorrow. She has persistent left-sided chest pain and shortness of breath. She has had no fevers chills nausea nor vomiting. She also notes that her left arm feels tingling and abnormal. She also has pain in her left shoulder blade. She has not been nauseous nor vomiting. She has had no calf pain nor tenderness. She has been adherent with her apixaban but has not yet taken her nocturnal dose. No recent falls. She had gradual onset headache this afternoon. Related Data Home Medications Medication Instructions Recorded Confirmed fluticasone propionate 50 2 spray NS DAILY 12/23/16 07/27/22 mcg/actuation nasal spray,suspension (Flonase Allergy Relief) ropinirole 1 mg tablet 1 mg PO BID 06/12/20 07/27/22 duloxetine 60 mg capsule,delayed 60 mg PO DAILY #30 mg 08/19/20 07/27/22 release (Cymbalta) albuterol sulfate 90 mcg/actuation 2 puff inhalation Q4H PRN 05/30/21 07/27/22 aerosol inhaler loratadine 10 mg tablet (Allergy 10 mg PO DAILY PRN 05/30/21 07/27/22 Relief (loratadine)) atorvastatin 80 mg tablet 80 mg PO QPM 06/10/21 07/27/22 empagliflozin 10 mg tablet 10 mg PO DAILY 06/10/21 07/27/22 nitroglycerin 0.4 mg sublingual 0.4 mg sublingual Q5M PRN 09/25/21 07/27/22 tablet gabapentin 600 mg tablet 600 mg PO QHS #90 tabs 11/24/21 07/27/22 topiramate 100 mg tablet (Topamax) 100 mg PO QHS #90 tab-caps 11/24/21 07/27/22 bumetanide 1 mg tablet 1 mg PO DAILY 07/27/22 07/27/22 trazodone 100 mg tablet 100 mg PO HS 07/27/22 07/27/22 apixaban 5 mg (74 tabs) tablets in 5 mg PO ONCE #74 dose pk 07/28/22 a dose pack erenumab-aooe 140 mg/mL 140 mg subcut QMONTH #1 mL 07/28/22 subcutaneous auto-injector (Aimovig Autoinjector) aspirin 81 mg capsule 81 mg PO DAILY #30 caps 07/29/22 Previous Rx's Medication Instructions Recorded duloxetine 60 mg capsule,delayed 60 mg PO DAILY #30 mg 08/19/20 release (Cymbalta) gabapentin 600 mg tablet 600 mg PO QHS #90 tabs 11/24/21 topiramate 100 mg tablet (Topamax) 100 mg PO QHS #90 tab-caps 11/24/21 apixaban 5 mg (74 tabs) tablets in 5 mg PO ONCE #74 dose pk 07/28/22 a dose pack erenumab-aooe 140 mg/mL 140 mg subcut QMONTH #1 mL 07/28/22 subcutaneous auto-injector (Aimovig Autoinjector) aspirin 81 mg capsule 81 mg PO DAILY #30 caps 07/29/22 Allergies Allergy/AdvReac Type Severity Reaction Status Date / Time acetaminophen [From Tylenol] AdvReac Intermediate Unverified 06/06/22 09:31 clobetasol AdvReac Intermediate Skin Rash Verified 06/06/22 09:31 codeine AdvReac Mild Verified 06/06/22 09:31 ibuprofen AdvReac Unverified 06/06/22 09:31 environmental Allergy Mild Uncoded 06/06/22 09:31 General Stated Complaint: Chest Pain MIKAELA: 3 PFSH All Active Problems (Updated 07/29/22 @ 21:36 by Aaron Rodriguez MD) Myocardial injury (Acute) Left facial numbness (Acute) Stenosis of left carotid artery greater than 50% (Acute) Elevated troponin I level (Acute) Chronic heart failure with preserved ejection fraction (Chronic) MARYLOU (obstructive sleep apnea) (Chronic) Pulmonary emboli (Acute) Avulsion fracture of right talus (Acute 12/30/21) Arthritis of carpometacarpal (CMC) joint of left thumb (Acute) Bilateral carpal tunnel syndrome (Acute) Paresthesia of hand, bilateral (Acute) Abnormal chest CT (Acute) Pulmonary hypertension (Acute) Atypical chest pain (Acute) PSVT (paroxysmal supraventricular tachycardia) (Acute) Acute non-ST elevation myocardial infarction (NSTEMI) (Acute) Right upper quadrant abdominal pain (Acute) Restless legs syndrome (Acute) Rhinitis, nonallergic, chronic (Acute) Tendinitis (Acute) Chest pain (Acute) Migraine headache without aura (Acute) Lichen sclerosus (Acute) Migraine with aura and without status migrainosus, not intractable (Acute 02/24/16) Medical History Acute bronchitis Acute non-ST elevation myocardial infarction (NSTEMI) Arthritis of carpometacarpal (CMC) joint of left thumb Asthma [facility] (closed head injury) Chronic heart failure with preserved ejection fraction COVID-19 Depression Elevated troponin I level Endometriosis Infiltrate of lower lobe of left lung present on imaging study Insomnia Left lateral epicondylitis Left wrist pain Migraine Non-ST elevation DE (NSTEMI) MARYLOU (obstructive sleep apnea) Overweight Surgical History History of partial hysterectomy Family History Daughter Migraines Mother Hypertension Father Heart disease Social History Smoking/Tobacco Use Status: Never Smoking risk assessment performed?: Yes Alcohol Intake: never Drug use: Never Substance use type: does not use Current gender identity: female Do you feel safe at home: Yes Do you feel safe in your relationship?: Yes Female Reproductive History Menstrual Menopause type: surgical History History 2 Para 2 Hx # Term Pregnancies Multiple births Hx # Pregnancies Ectopic pregnancies AB induced Hx Number of Living Children AB spontaneous Exam Narrative Exam Narrative: General: Well-appearing in no acute distress speaking in complete sentences. Head: Normocephalic, atraumatic. Eye: Pupils equal, round reactive to light. Extraocular eye movements intact. No conjunctival injection. No scleral icterus. Ear, nose, mouth, throat: Grossly normal inspection. Normal voice, handling secretions normally. Neck: Trachea midline. Cardiovascular: Well-perfused distal extremities.Regular rate and rhythm. Respiratory: Nonlabored respiration. Clear lungs bilaterally. Gastrointestinal: Nondistended abdomen. Soft nontender abdomen. Musculoskeletal: No edema. Moving all 4 extremities spontaneously. Skin: Normal for age and race, grossly normal temperature and turgor. No acute rash. Neurologic: Alert and appropriate, no apparent acute deficits. GCS 15. 5 out of 5 bilateral upper and lower extremity strength. Cranial nerves II through XII intact grossly slightly decreased left-sided facial sensation V1 through V3 and decreased left posterior neck sensation. Psychiatric: Mood and manner are appropriate. Grooming and personal hygiene are appropriate. Course Vital Signs Vital signs: Vital Signs Temperature 36.6 C 07/29/22 19:05 Pulse 61 07/29/22 19:05 Respiratory Rate 16 07/29/22 19:05 Blood Pressure 102/62 07/29/22 19:05 Pulse Oximetry 95 07/29/22 19:05 Temperature 36.6 C 07/29/22 19:05 Pulse 61 07/29/22 19:05 Respiratory Rate 16 07/29/22 19:05 Respiratory Effort Normal 07/29/22 19:08 Blood Pressure 102/62 07/29/22 19:05 Pulse Oximetry 95 07/29/22 19:05 Pain Level 7 07/29/22 19:05
--- NOTE | 2022-07-29 19:49 | DI.CT_ITS ---
Exam(s) CT BRAIN NECK CTA EXAM: CT BRAIN NECK CTA CLINICAL HISTORY: Left-sided facial numbness. TECHNIQUE: Imaging Protocol: Axial CT angiography was performed with multi-slice acquisition and mu lti-planar and/or 3D reconstructions. CONTRAST MATERIAL: Intravenous: Omnipaque 350 contrast volume:85 mL COMPARISON: CT CT HEAD CERVICAL SPINE WO from 12/22/2020 FINDINGS: CT Head W/O and W: Ventricles and Extra axial spaces: Normal in size and morphology for the patient's age. Hemorrhage: None. Cerebral parenchyma: Normal. Midline shift: None. Brainstem/Cerebellum: Normal. Calvarium: Normal. Visualized Paranasal sinuses/Mastoids: Clear. Soft Tissues: Unremarkable. Enhancement: Unremarkable. CTA Neck W: Common Carotid: Right: No dissection, occlusion or significant stenosis. Left: No dissection, occlusion or significant stenosis. External Carotid: Right: No occlusion or significant stenosis. Left: No occlusion or significant stenosis. Internal Carotid: Right: No dissection, occlusion or significant stenosis. Left: No evidence of dissection or occlusion. There is calcific plaque at the carotid bulb causing moderate to severe stenosis at the origin of the left internal carotid artery. Vertebral Artery: Right: No dissection, occlusion or significant stenosis. Left: No dissection, occlusion or significant stenosis. Lung Apices: There are mild age-appropriate degenerative changes in the cervical spine. Bones: Within normal limits for the patient's age. Soft Tissues: Normal. Thyroid gland: Unremarkable. CTA Brain W: Internal Carotid Arteries: Mild atherosclerosis. No aneurysm, occlusion or significant stenosis. Anterior Cerebral Arteries: Right: No aneurysm, occlusion or significant stenosis. Left: No aneurysm, occlusion or significant stenosis. Middle Cerebral Arteries: Right: No aneurysm, occlusion or significant stenosis. Left: No aneurysm, occlusion or significant stenosis. Posterior Cerebral Arteries: Right: No aneurysm, occlusion or significant stenosis. Left: No aneurysm, occlusion or significant stenosis. Vertebral Arteries: Right: No aneurysm, occlusion or significant stenosis. Left: No aneurysm, occlusion or significant stenosis. Basilar Artery: No aneurysm, occlusion or significant stenosis. IMPRESSION: 1. No large vessel occlusion or significant stenosis on the CT angiography of the head. 2. No acute intracranial process. 3. Moderate to severe stenosis at the origin of the left internal carotid artery secondary to calcifi ed plaque. RADIATION DOSE DELIVERED: 1,878.63mGy.cm Total DLP DATA REPOSITORY: All CT scans at this facility are submitted to the National Radiology Data Registry (NRDR) Dose Index Registry (DIR) with the [employer] ([employer]). RADIATION OPTIMIZATION: All CT scans at this facility use at least one of these dose optimization te chniques: automated exposure control; mA and/or kV adjustment per patient size (includes targeted exa ms where dose is matched to clinical indication); or iterative reconstruction.
--- NOTE | 2022-07-29 19:49 | DI.CT_ITS ---
Exam(s) CT CHEST PE CTA EXAM: CT CHEST PE CTA CLINICAL HISTORY: History of PE with left-sided swelling. TECHNIQUE: Imaging Protocol: Axial CT angiography was performed with multi-slice acquisition and mu lti-planar and/or 3D reconstructions. CONTRAST MATERIAL: Intravenous: Omnipaque 350 contrast volume:85 mL COMPARISON: CT CT CHEST PE CTA from 07/27/2022 FINDINGS: Tracheobronchial tree: Patent where visualized. Pulmonary parenchyma: There again seen diffuse ground-glass opacities. No focal consolidations are p resent. No architectural distortion. Pulmonary Arteries: There is again seen filling defect to branches of the pulmonary arteries to the r ight upper lobe. No new pulmonary embolus are identified. Mediastinum and Jessica: Stable mediastinal lymph nodes. The esophagus is unremarkable. Visualized thyroid gland: Unremarkable. Pleura: No effusion or pneumothorax. Heart: Cardiomegaly. The RV to LV ratio is less than 1. Mild coronary artery calcification. No yuki cardial effusion. Aorta: Thoracic aorta non-dilated. No evidence of dissection. Atherosclerosis. Upper abdomen: Unremarkable. Soft tissues: Unremarkable. Bones: Within normal limits for the patient's age.There is a old nonunited right clavicular fracture. IMPRESSION: 1. Stable right upper lobe pulmonary embolus. No new pulmonary emboli. No evidence of right heart s train. 2. Persistent ground-glass opacities. Differential considerations include infectious process, chroni c interstitial lung disease, edema or hemorrhage. RADIATION DOSE DELIVERED: 582.7mGy.cm Total DLP DATA REPOSITORY: All CT scans at this facility are submitted to the National Radiology Data Registry (NRDR) Dose Index Registry (DIR) with the [employer] (ACR). RADIATION OPTIMIZATION: All CT scans at this facility use at least one of these dose optimization te chniques: automated exposure control; mA and/or kV adjustment per patient size (includes targeted exa ms where dose is matched to clinical indication); or iterative reconstruction.
[2022-07-29 20:15] LABS: Abs Immature Grans 0.02 10^3/uL (0.0-0.06); Absolute Basophil Count 0.05 10^3/uL (0.0-0.2); Absolute Eosinophil Count 0.25 10^3/uL (0.0-0.7); Absolute Lymphocyte Count 2.28 10^3/uL (1.2-3.4); Absolute Monocyte Count 0.61 10^3/uL (0.1-0.8); Basophils % 0.7; Eosinophils % 3.3; HCT 46.3 % (36.0-46.0); HGB 15.4 g/dL (11.2-15.7); Immature Grans % 0.3; MCH 31.2 pg (27.0-33.0); MCHC 33.3 % (32.0-36.0); MCV 94 fL (80-95); MPV 12.1 fL (8.0-11.0); Neutrophils % 57.7; Platelet Count 248 10^3/uL (130-400); RBC 4.93 10^6/uL (3.93-5.22); RDW 13.2 % (11.7-14.6); RDW-SD 44.9 fL; WBC 7.61 10^3/uL (4.4-10.8)
[2022-07-29] MEDS: Apixaban 5 MG TAB PO (20:16)
[2022-07-29 20:32] LABS: Anion Gap 12.2 mmol/L (3-11); BUN 22 mg/dL (7-18); CO2 22.8 mmol/L (21.0-32.0); CREATININE 1.3 mg/dL (0.55-1.02); Calcium 9.5 mg/dL (8.5-10.1); Chloride 105 mmol/L (98-107); Estimated GFR 49.17 (mL/min/1.73m2); Glucose 100 mg/dL (74-106); Magnesium 2.3 mg/dL (1.8-2.4); Potassium 3.8 mmol/L (3.5-5.1); Sodium 140 mmol/L (136-145)
[2022-07-29 20:34] LABS: Troponin I 430 ng/L (<or=60)
[2022-07-29] MEDS: Normal Saline Flush 10 ML SYR IVP (20:44)
[2022-07-29] MEDS: Normal Saline - Diluent 50 ML VIAL 100 ML IJ (20:44)
[2022-07-29] MEDS: Omnipaque 350 MG/ML 100 ML BTL IJ (20:45)
[2022-07-29] MEDS: Normal Saline 500 ML IV (21:15)
--- NOTE | 2022-07-29 21:51 | DI.VRAD_ITS ---
PROCEDURE INFORMATION: Exam: CT Head Without Contrast Exam date and time: 07/29/2022 8:50 PM Age: 52 years old Clinical indication: Numbness / parasthesia and weakness, facial and other: Left-sided facial numbness TECHNIQUE: Imaging protocol: Computed tomography of the head without contrast. COMPARISON: CT HEAD CERVICAL SPINE WO 12/22/2020 3:44 PM FINDINGS: Brain: Normal. No hemorrhage. Unremarkable white matter. No mass effect. Cerebral ventricles: No ventriculomegaly. Paranasal sinuses: Visualized sinuses are unremarkable. No fluid levels. Mastoid air cells: Visualized mastoid air cells are well aerated. Bones/joints: Unremarkable. No acute fracture. Soft tissues: Unremarkable. IMPRESSION: No acute intracranial abnormality. PROCEDURE INFORMATION: Exam: CTA Head With Contrast, Arteriography Exam date and time: 07/29/2022 8:50 PM Age: 52 years old Clinical indication: Numbness / parasthesia and weakness, facial and other: Left-sided facial numbness TECHNIQUE: Imaging protocol: Computed tomographic angiography of the head with contrast. Exam focused on the arteries. 3D rendering (Not supervised by radiologist): MIP and/or 3D reconstructed images were created by the technologist. Contrast material: OMNIPAQUE 350; Contrast volume: 85 ml; Contrast route: INTRAVENOUS (IV); COMPARISON: CT HEAD CERVICAL SPINE WO 12/22/2020 3:44 PM FINDINGS: ANTERIOR CIRCULATION: Right internal carotid artery: Intracranial segment is patent with no significant stenosis. No aneurysm. Right middle cerebral artery: No occlusion or significant stenosis. No aneurysm. Right anterior cerebral artery: No occlusion or significant stenosis. No aneurysm. Left internal carotid artery: Intracranial segment is patent with no significant stenosis. No aneurysm. Left middle cerebral artery: No occlusion or significant stenosis. No aneurysm. Left anterior cerebral artery: No occlusion or significant stenosis. No aneurysm. POSTERIOR CIRCULATION: Right vertebral artery: No occlusion or significant stenosis. No aneurysm. Left vertebral artery: No occlusion or significant stenosis. No aneurysm. Basilar artery: No occlusion or significant stenosis. No aneurysm. Right posterior cerebral artery: No occlusion or significant stenosis. No aneurysm. Left posterior cerebral artery: No occlusion or significant stenosis. No aneurysm. Brain: No definite mass, mass effect, or midline shift. Cerebral ventricles: No ventriculomegaly. Bones/joints: Unremarkable. No acute fracture. Soft tissues: Unremarkable. IMPRESSION: No large vessel stenosis or occlusion. PROCEDURE INFORMATION: Exam: CTA Neck With Contrast Exam date and time: 07/29/2022 8:50 PM Age: 52 years old Clinical indication: Numbness / parasthesia and weakness, facial and other: Left-sided facial numbness TECHNIQUE: Imaging protocol: Computed tomographic angiography of the neck with contrast. 3D rendering (Not supervised by radiologist): MIP and/or 3D reconstructed images were created by the technologist. Contrast material: OMNIPAQUE 350; Contrast volume: 85 ml; Contrast route: INTRAVENOUS (IV); COMPARISON: CT HEAD CERVICAL SPINE WO 12/22/2020 3:44 PM FINDINGS: Right common carotid artery: No stenosis. No dissection or occlusion. Right internal carotid artery: No stenosis of the extracranial segment. No dissection or occlusion. Right external carotid artery: No occlusion or stenosis of the origin. Left common carotid artery: No stenosis. No dissection or occlusion. Left internal carotid artery: Calcified plaque at the bulb with moderate to severe stenosis. No dissection or occlusion. Left external carotid artery: No occlusion or stenosis of the origin. Right vertebral artery: No stenosis. No dissection or occlusion. Left vertebral artery: No stenosis. No dissection or occlusion. Soft tissues: No significant soft tissue swelling. Bones/joints: No acute fracture. IMPRESSION: Calcified plaque at the left carotid bulb with moderate to severe stenosis No large vessel occlusion REFERENCES: NASCET CRITERIA. The degree of stenosis in the cervical segment of the internal carotid artery is based on NASCET criteria. Normal is no stenosis. Mild is less than 50% stenosis. Moderate is 50-69% stenosis. Severe is 70% to 99% stenosis. Total occlusion is no detectable patent lumen. Dictated and Authenticated by: Harry Pacheco MD. Ordering:KWASI Walker MD
--- NOTE | 2022-07-29 22:04 | DI.VRAD_ITS ---
PROCEDURE INFORMATION: Exam: CTA Chest With Contrast Exam date and time: 07/29/2022 9:15 PM Age: 52 years old Clinical indication: Other: History of pe with left-sided swelling; Patient HX: Dx dvt on Wednesday TECHNIQUE: Imaging protocol: Computed tomographic angiography of the chest with contrast. Exam focused on the arteries. 3D rendering (Not supervised by radiologist): MIP and/or 3D reconstructed images were created by the technologist. Radiation optimization: All CT scans at this facility use at least one of these dose optimization techniques: automated exposure control; mA and/or kV adjustment per patient size (includes targeted exams where dose is matched to clinical indication); or iterative reconstruction. Contrast material: OMNI 350; Contrast volume: 100 ml; Contrast route: INTRAVENOUS (IV); COMPARISON: CT CHEST PE CTA 07/27/2022 12:29 PM FINDINGS: Pulmonary arteries: Stable small right upper lobe pulmonary embolus. No new pulmonary emboli evident. Aorta: Unremarkable. No aortic aneurysm. No aortic dissection. Lungs: Stable diffuse ground-glass opacity throughout both lungs with areas of parenchymal sparing. Pleural spaces: Unremarkable. No pneumothorax. No pleural effusion. Heart: RV/LV ratio less than 1. No cardiomegaly. No pericardial effusion. Lymph nodes: There is stable mild mediastinal lymphadenopathy. Bones/joints: Unremarkable. No acute fracture. Soft tissues: Unremarkable. IMPRESSION: 1. Stable small right upper lobe pulmonary embolus. No new pulmonary emboli evident. No evidence of right heart strain (RV/LV ratio less than 1) 2. Persistent diffuse ground-glass opacity throughout both lungs. Differential diagnosis would include acute diffuse pneumonitis, chronic interstitial lung disease or acute pulmonary edema or hemorrhage. Dictated and Authenticated by: Lalo Perez MD. Ordering:KWASI Walker MD
--- NOTE | 2022-07-29 22:57 | NUR.NOTE ---
Nursing Note:referral faxed to [facility]
== END 2022-07-29 23:48 | disposition home or self-care (01) ==
PROVIDERS: Emergency Provider Emergency Medicine; PCP Physician Assistant
DX: R20.0 Anesthesia of skin (principal); S26.90XA Unspecified injury of heart, unspecified with or without hemopericardium, initial encounter; X58.XXXA Exposure to other specified factors, initial encounter; I65.22 Occlusion and stenosis of left carotid artery; I50.9 Heart failure, unspecified
CPT/HCPCS: 36415; 70496; 70498; 71275; 80048; 93005; 96360; 99285; 83735; 84484; 85025; 93010; 99284; J3490

== ENCOUNTER 2022-08-17 13:45 | Outpatient (CLI) | payer BC, SELFPAY ==
--- NOTE | 2022-08-17 12:34 | DI.US_ITS ---
APPROVED REPORT EXAM: Comprehensive 2D, Doppler, and color-flow Echocardiogram Patient Location: Out-Patient Physical Testing Supervisor: Grace Flynn RDCS (AE) Indications: Heart failure with preserved EF, Pulmonary embolism Other Information Study Quality: Fair. Technically limited study due to body habitus. Conclusion Mild concentric left ventricular hypertrophy. Ejection fraction is 50 to 55%. There are no segmenta l wall motion abnormalities. There is stage I diastolic dysfunction Normal right ventricular size and systolic function Both atria are borderline dilated Normal mitral valve with mild regurgitation Normal tricuspid valve with trace regurgitation. Right ventricular systolic pressure could not be es timated Mildly dilated ascending aorta measuring 3.42 cm Wall motion Left Ventricle The left ventricle is normal size. Left ventricular systolic function is mildly decreased. The left ventricular systolic function is normal. The left ventricular ejection fraction is within the normal range. Borderline concentric left ventricular hypertrophy. There are no segmental wall motion abnorm alities There is no ventricular septal defect visualized. LVEF is 50 to 55% Right Ventricle The right ventricle is normal size. Right ventricular systolic function is grossly normal. Atria Left atrium is borderline dilated. Right atrium is borderline dilated. The interatrial septum is inta ct with no evidence for an atrial septal defect. Aortic Valve The Aortic valve is sclerotic. Aortic valve is trileaflet. There is no aortic valvular stenosis. No a ortic regurgitation is present. Mitral Valve The mitral valve is normal in structure. No evidence of mitral valve stenosis. Mild mitral regurgita tion. Tricuspid Valve The tricuspid valve is normal in structure. There is no tricuspid valve stenosis. Trace tricuspid reg urgitation. Unable to assess PA pressure. Pulmonic Valve Pulmonic valve is not well visualized. There is no pulmonic valvular stenosis. There is no pulmonic v alvular regurgitation. Great Vessels The aortic root is normal in size. The ascending aorta is mildly dilated. Aortic arch is normal in ca liber. IVC is normal in size and collapses >50% with inspiration. Pericardium There is no pericardial effusion. 2D Dimensions IVSD d PLAX 1.09 cm F: 0.6-1.0 LV Vol A2C d MOD 81.9 mL LVPW d PLAX 1.08 cm F: 0.6 - 1.0 LV Vol A4C d MOD 72.3 mL LVID d PLAX 4.65 cm F: 3.8 - 5.2 LA vol/ BSA A4C s A-L 40.6 mL/m2 LVDs 3.55 cm F: 2.2 - 3.5 LA Area A4C s MOD 25.56 cm2 Ao Root d 2.62 cm F: 2.7 - 3.3 LV EF A4C MOD 45.9 % RA Area A4C 20.55 cm2 LV EF A2C MOD 45.5 % RA Vol/ BSA A4C s A-L 28.5 mL/m2 LV EF Biplane MOD 44.0 % Ao Asc Diam d 3.42 cm F: 2.3 - 3.1 SV 34.52 mL LV EF Teichholz 47.1 % SV Index 16.92 mL/m2 LVEF (Reyes's) 44.02 % F: 54 - 74 LV Volume 58.43 mL F: 46 - 106 LV Volume Index 28.64 mL/m2 F: 29 - 61 LV Vol Biplane MOD 78.4 mL FS 23.55 % LV Diastology MV E' medial 0.052 (>0.07 m/s) MV E Vmax 0.59 (0.4-1.3 m/s) LV E/e MED 11.30 (<14) MV E' lateral 0.048 (>0.1 m/s) LV E/e LAT 12.30 (<14) MV E/E' medial 11.34 MV E/E' lateral 12.31 Aortic Valve LVOT Area 3.01 cm2 AoV Area Vmax 3.02 cm2 LVOT Vmax 1.24 m/s AoV Area/ BSA (Vmax) 1.48 cm2/m2 LVOT Mean Ilir. 0.79 m/s MESFIN Mean Ilir. 2.72 cm2 LVOT Peak Grad 6.1 mmHg MESFIN Mean Ilir. Index 1.33 cm2/m2 LVOT Mean Grad 3.0 mmHg LVOT VTI 0.236 m LVOT Diam s 1.95 cm AoV Vmax 1.23 m/s Velocity Ratio 1.01 AoV Mean Ilir. 0.88 m/s AoV Peak Grad 6.1 mmHg LVOT SV 71.00 mL AoV Mean Grad 3.5 mmHg AoV VTI 0.242 m AoV Area VTI 2.94 cm2 AoV Area/ BSA (VTI) 1.44 cm/m2 Mitral Valve MV DT 132 (160-240 msec) MV PHT 38 msec MV Area PHT 5.76 cm2 Pulmonary Valve PV Vmax 1.05 (0.5-1.5 m/s) RVOT Peak Gr. 3.49 mmHg PV Peak Grad 4.4 mmHg RVOT Mean Gr. 1.95 mmHg PV Mean Grad 2.5 mmHg RVOT VTI 0.252 m PV VTI 0.257 m RVOT Vmax 0.93 m/s
== END 2022-08-17 14:05 ==
LOC: DI 13:45
PROVIDERS: PCP Physician Assistant; Visit Provider Internal Medicine Cardiovascular Disease
DX: I50.84 End stage heart failure (principal); I26.99 Other pulmonary embolism without acute cor pulmonale
CPT/HCPCS: 93306

== ENCOUNTER 2022-08-25 16:58 | Outpatient (CLI) | payer BC, SELFPAY ==
[2022-08-25 16:07] LABS: Hemoglobin A1C 5.4 % (<5.7)
== END 2022-08-25 16:59 | disposition home or self-care (01) ==
LOC: LBO 16:58
PROVIDERS: PCP Physician Assistant; Visit Provider Nurse Practitioner Adult Health
DX: I5A Non-ischemic myocardial injury (non-traumatic) (principal); R20.0 Anesthesia of skin
CPT/HCPCS: 36415; 83036

== ENCOUNTER 2022-08-31 07:35 | Emergency (ER) | payer BC, SELFPAY ==
[2022-08-31 07:44] VITALS: BP 118/72; PULSE 60; RESP 18; TEMP 37; O2SAT 99
--- NOTE | 2022-08-31 07:45 | DI.CT_ITS ---
Exam(s) CT ABDOMEN PELVIS W EXAM: CT ABDOMEN PELVIS W CLINICAL HISTORY: abd pain TECHNIQUE: Imaging Protocol: Axial computed tomography images with coronal and sagittal reformatted images were created and reviewed CONTRAST MATERIAL: Intravenous: Omnipaque 350 Contrast volume:100 mL Oral: No COMPARISON: CT CT ABDOMEN PELVIS WO from 03/10/[address] THORAX ABD/PEL CTA from 03/10/[address] CHEST PE CTA from 07/29/2022 FINDINGS: ABDOMEN: Lung Bases: There is a small hiatal hernia. There again seen ground-glass opacities in the lung base s which appears stable. No focal consolidating infiltrate is seen. Liver: Normal density. No measurable mass. Portal, Superior Mesenteric, and Splenic Veins: Unremarkable. Gallbladder and Biliary Tract: No radiodense calculus or dilation. Pancreas: Normal density, no abnormal calcifications or inflammatory process. Spleen: Normal. Adrenals: No masses seen. Kidneys: There is unchanged scarring in the right kidney. No radiodense stones or obstructive uropat hy. No masses seen. Abdominal Aorta: Abdominal portion non-dilated. Atherosclerosis. Bowel: No obstruction or bowel wall thickening. Appendix is unremarkable. The cecum crosses the midli ne and is located in the left abdomen. Peritoneal Cavity: No ascites, collection or mesenteric inflammatory response. No free air. Lymph Nodes: Within normal limits. Bones: Within normal limits for the patient's age. Soft Tissues: Unremarkable. PELVIS: Bladder: Symmetric distention, no gross wall thickening. Reproductive Organs: Status post hysterectomy. Lymph Nodes: Within normal limits. Bones: Within normal limits for the patient's age. IMPRESSION: 1. No acute abdominal or pelvic process. 2. There are stable ground-glass opacities in the lung bases. No focal consolidating infiltrates are seen. Differential considerations remain the same. There is no progression of the opacities. RADIATION DOSE DELIVERED: 1,351.51mGy.cm Total DLP DATA REPOSITORY: All CT scans at this facility are submitted to the National Radiology Data Registry (NRDR) Dose Index Registry (DIR) with the [employer] (A[employer]). RADIATION OPTIMIZATION: All CT scans at this facility use at least one of these dose optimization te chniques: automated exposure control; mA and/or kV adjustment per patient size (includes targeted exa ms where dose is matched to clinical indication); or iterative reconstruction.
--- NOTE | 2022-08-31 07:52 | ED.GENADUL_ITS ---
Discharge Plan Disposition Patient Disposition: Home Discharge Details Clinical Impression: Abdominal pain, Chest pain Primary Care Provider: Polo Pearce ED Provider: Leon Evans Kirkland Meds and New Rx's Prescriptions: New ondansetron 4 mg tablet,disintegrating 4 mg PO BID-TID PRN (Reason: nausea and vomiting) Qty: 10 0RF metoprolol succinate 25 mg tablet extended release 24 hr 12.5 mg PO DAILY Qty: 30 0RF Continued ropinirole 1 mg tablet 1 mg PO BID Rx Instructions: @ 1600 and 2100 lisinopril 5 mg tablet 5 mg PO DAILY Nurtec ODT 75 mg tablet,disintegrating 75 mg PO ONCE PRN (Reason: migraine headache) Qty: 10 3RF Rx Instructions: As a single dose. No more than one dose in 24 hours. atorvastatin 80 mg tablet 80 mg PO QPM empagliflozin 10 mg tablet 10 mg PO DAILY topiramate [Topamax] 100 mg tablet 100 mg PO QHS Qty: 90 3RF gabapentin 600 mg tablet 600 mg PO QHS Qty: 90 3RF fluticasone propionate [Flonase Allergy Relief] 9.9 ML spray,suspension 2 spray NS DAILY duloxetine [Cymbalta] 60 mg capsule,delayed release(DR/EC) 60 mg PO DAILY Qty: 30 2RF albuterol sulfate 90 mcg/actuation HFA aerosol inhaler 2 puff inhalation Q4H PRN loratadine [Allergy Relief (loratadine)] 10 mg tablet 10 mg PO DAILY PRN nitroglycerin 0.4 mg tablet, sublingual 0.4 mg sublingual Q5M PRN Rx Instructions: do not exceed 3 doses per episode Aimovig Autoinjector 140 mg/mL auto-injector 140 mg subcut QMONTH Qty: 1 11RF montelukast 10 mg tablet 10 mg PO DAILY spironolactone 50 mg tablet 50 mg PO DAILY clobetasol 0.05 % ointment 1 applic topical DIRECTED omeprazole 20 mg capsule,delayed release(DR/EC) 20 mg PO DAILY PRN prochlorperazine maleate 5 mg tablet See Rx Instructions PO BID PRN Rx Instructions: 1-2tabs orally twice a day PRN; bumetanide 1 mg tablet 1 mg PO DAILY Patient Comments: TAKE ONE TABLET BY MOUTH EVERY DAY trazodone 100 mg tablet 100 mg PO HS Patient Comments: TAKE ONE TABLET BY MOUTH AT BEDTIME apixaban 5 mg (74 tabs) tablets,dose pack 5 mg PO ONCE Qty: 74 0RF aspirin 81 mg capsule 81 mg PO DAILY Qty: 30 0RF Discontinued metoprolol succinate 25 mg tablet extended release 24 hr 25 mg PO DAILY Discharge Instructions Instructions: Chest Pain (ED), Abdominal Pain (ED) Additional Instructions: I spoke to cardiology, please decrease your Metoprolol dose to 12.5 mg from the 25 mg that you currently taking, and f/u with your doctor. HPI General Date/Time Provider Initiated Documentation: 08/31/22 07:35 . History of Present Illness described as severe, and is localized to the abdomen. Patient started experiencing this hour(s) and it has been constant. No relieving factors improve symptom(s), HPI Narrative: 52 year old female with PMHx PE on Eliquis, NSTEMI, Pulm HTN, CHF, migraines, presents to the ED with c/o waking up with diffuse abd pain and significant livia sea. She says that she felt fine yesterday and when she went to bed. No vomiting, no diarrhea, no known fevers/chills. No cp/sob. She denies any recent travel, no new foods, and no known sick contacts. Related Data Home Medications Medication Instructions Recorded Confirmed fluticasone propionate 50 2 spray NS DAILY 12/23/16 08/31/22 mcg/actuation nasal spray,suspension (Flonase Allergy Relief) ropinirole 1 mg tablet 1 mg PO BID 06/12/20 08/31/22 duloxetine 60 mg capsule,delayed 60 mg PO DAILY #30 mg 08/19/20 08/31/22 release (Cymbalta) albuterol sulfate 90 mcg/actuation 2 puff inhalation Q4H PRN 05/30/21 08/31/22 aerosol inhaler loratadine 10 mg tablet (Allergy 10 mg PO DAILY PRN 05/30/21 08/31/22 Relief (loratadine)) atorvastatin 80 mg tablet 80 mg PO QPM 06/10/21 08/31/22 empagliflozin 10 mg tablet 10 mg PO DAILY 06/10/21 08/31/22 nitroglycerin 0.4 mg sublingual 0.4 mg sublingual Q5M PRN 09/25/21 08/31/22 tablet gabapentin 600 mg tablet 600 mg PO QHS #90 tabs 11/24/21 08/31/22 topiramate 100 mg tablet (Topamax) 100 mg PO QHS #90 tab-caps 11/24/21 08/31/22 bumetanide 1 mg tablet 1 mg PO DAILY 07/27/22 08/31/22 trazodone 100 mg tablet 100 mg PO HS 07/27/22 08/31/22 apixaban 5 mg (74 tabs) tablets in 5 mg PO ONCE #74 dose pk 07/28/22 08/31/22 a dose pack erenumab-aooe 140 mg/mL 140 mg subcut QMONTH #1 mL 07/28/22 08/31/22 subcutaneous auto-injector (Edutor Autoinjector) aspirin 81 mg capsule 81 mg PO DAILY #30 caps 07/29/22 08/31/22 lisinopril 5 mg tablet 5 mg PO DAILY 08/25/22 08/31/22 rimegepant 75 mg disintegrating 75 mg PO ONCE PRN migraine 08/25/22 08/31/22 tablet (Nurtec ODT) headache #10 tabs montelukast 10 mg tablet 10 mg PO DAILY 08/27/22 08/31/22 spironolactone 50 mg tablet 50 mg PO DAILY 08/27/22 08/31/22 clobetasol 0.05 % topical ointment 1 applic topical DIRECTED 08/28/22 08/31/22 omeprazole 20 mg capsule,delayed 20 mg PO DAILY PRN 08/28/22 08/31/22 release prochlorperazine maleate 5 mg See Rx Instructions PO BID PRN 08/28/22 08/31/22 tablet metoprolol succinate 25 mg 12.5 mg PO DAILY #30 tabs 08/31/22 tablet,extended release 24 hr ondansetron 4 mg disintegrating 4 mg PO BID-TID PRN nausea and 08/31/22 tablet vomiting #10 tabs Previous Rx's Medication Instructions Recorded duloxetine 60 mg capsule,delayed 60 mg PO DAILY #30 mg 08/19/20 release (Cymbalta) gabapentin 600 mg tablet 600 mg PO QHS #90 tabs 11/24/21 topiramate 100 mg tablet (Topamax) 100 mg PO QHS #90 tab-caps 11/24/21 apixaban 5 mg (74 tabs) tablets in 5 mg PO ONCE #74 dose pk 07/28/22 a dose pack erenumab-aooe 140 mg/mL 140 mg subcut QMONTH #1 mL 07/28/22 subcutaneous auto-injector (Aimovig Autoinjector) aspirin 81 mg capsule 81 mg PO DAILY #30 caps 07/29/22 rimegepant 75 mg disintegrating 75 mg PO ONCE PRN migraine 08/25/22 tablet [facility] headache #10 tabs metoprolol succinate 25 mg 12.5 mg PO DAILY #30 tabs 08/31/22 tablet,extended release 24 hr ondansetron 4 mg disintegrating 4 mg PO BID-TID PRN nausea and 08/31/22 tablet vomiting #10 tabs Allergies Allergy/AdvReac Type Severity Reaction Status Date / Time acetaminophen [From Tylenol] AdvReac Intermediate Unverified 08/25/22 08:28 clobetasol AdvReac Intermediate Skin Rash Verified 08/25/22 08:28 codeine AdvReac Mild Verified 08/25/22 08:28 ibuprofen AdvReac Unverified 08/25/22 08:28 environmental Allergy Mild Uncoded 08/25/22 08:28 General Stated Complaint: Abd Prob MIKAELA: 3 Review of Systems Narrative: CONST: no fever or chills HEENT: no sore throat SKIN: no rashes PULM: no sob, no cough CARD: no cp, no palpitations ABD:+abd pain, +nausea EXTR: no swelling NEURO: No focal weakness PFSH All Active Problems (Updated 08/31/22 @ 14:26 by Loen Evans MD) Abdominal pain (Acute) Chest pain (Acute) Allergic asthma (Acute) intermittent, controlled Dyspnea (Acute) Diarrhea (Acute) Congestive heart failure (Chronic) Sick euthyroidism (Acute) Carpal tunnel syndrome (Acute) GERD (gastroesophageal reflux disease) (Chronic) Bilateral renal artery stenosis (Acute) Encounter for weight loss counseling (Acute) Migraine with aura and without status migrainosus, not intractable (Acute 02/24/16) MARYLOU (obstructive sleep apnea) (Chronic) Lichen sclerosus (Acute) Migraine headache without aura (Acute) Chest pain (Acute) Tendinitis (Acute) Rhinitis, nonallergic, chronic (Acute) Restless legs syndrome (Acute) Chronic heart failure with preserved ejection fraction (Chronic) Right upper quadrant abdominal pain (Acute) Elevated troponin I level (Acute) Acute non-ST elevation myocardial infarction (NSTEMI) (Acute) PSVT (paroxysmal supraventricular tachycardia) (Acute) Atypical chest pain (Acute) Pulmonary hypertension (Acute) Abnormal chest CT (Acute) Paresthesia of hand, bilateral (Acute) Bilateral carpal tunnel syndrome (Acute) Avulsion fracture of right talus (Acute 12/30/21) Arthritis of carpometacarpal (CMC) joint of left thumb (Acute) Pulmonary emboli (Acute) Medical History (Updated 08/31/22 @ 14:26 by Leon Evans MD) Acute bronchitis Acute non-ST elevation myocardial infarction (NSTEMI) Arthritis of carpometacarpal (CMC) joint of left thumb Asthma [facility] (closed head injury) COVID-19 Depression Endometriosis Hx of supraventricular tachycardia Infiltrate of lower lobe of left lung present on imaging study Insomnia Left lateral epicondylitis Left wrist pain Migraine Non-ST elevation PR (NSTEMI) Overweight Surgical History (Updated 08/28/22 @ 08:47 by Neli Rojo) History of partial hysterectomy Hx of tubal ligation Family History Daughter Migraines Mother Hypertension Father Heart disease Social History Smoking/Tobacco Use Status: Never Smoking risk assessment performed?: Yes Alcohol Intake: never Drug use: Never Substance use type: does not use Current gender identity: female Do you feel safe at home: Yes Do you feel safe in your relationship?: Yes Female Reproductive History Menstrual Menopause type: surgical History History 2 Para 2 Hx # Term Pregnancies Multiple births Hx # Pregnancies Ectopic pregnancies AB induced Hx Number of Living Children AB spontaneous Exam Narrative Exam Narrative: Const: uncomfortable, rubbing abd HEENT: normocephalic, atraumatic; MMM Lungs: CTA, no wheezing or rales Heart: RRR Abd: soft, diffusely tender Ext: well perfused Neuro: non-focal Skin: no rashes, clammy feeling Course 52 yo female presents to the ED after waking with diffuse abd pain, severe nausea. She is diffusely tender, difficult localizing. Prior hx of transvaginal hysterectomy, otherwise denies any abd surgeries. Will check UA, blood work, CT a/p, and meds for pain/nausea. Reevaluation(s) Initial Evaluation: 0841 - Pt with more pain, given another 2mg morphine. Cr 1.5, up from her baseline 1.3, 07/29/22. IVF being given. Waiting on CT. LFTs notably normal. Reevaluation: 0845 - pt c/o cp now, ordered ekg. Re-eval of pt, states she felt like her heart was squeezing, but is relaxing now. ekg - sinus morgan, ST depressions inferior and lateral leads, unchanged from priors 07/29/22 and 07/27/22. Reevaluation #2: 0944 - Pt still uncomfortable, says cp is under her left breast, really in her upper abd, and comes and goes, squeezing feeling, then lets up. Discussed available test results, CT a/p without any acute findings, and labs showed elevated trop at 644. She has what looks like a constant trop leak, always elevated some, but this is up from prior, was 400's last month. Will re- check ekg, trop. She has cardiac cath 2020 that was noted in prior records to be clean. Currently on Eliquis for PE in RUL. 2d echo 08/17/22 showed mild concentric LVH, EF 50-55%. no wall motion abnormalities. Stage 1 diastolic dysfunction. Normal RV and systolic fx. Additional Reevaluation(s): 1144 - pt resting comfortably, feeling much better. No pain currently. Waiting for repeat labs and ekg. Consultations Consultation #1: [id number] - spoke to [facility] cards, discussed all pertinent aspects of case, agrees does not sound acute, likely some demand. With her bradycardia she can cut metoprolol in 03/09, to 12.5 mg, can f/u with Dr. Mesa in a couple weeks for re- check. Vital Signs Vital signs: Vital Signs Temperature 37.0 C 08/31/22 07:44 Pulse 60 08/31/22 07:44 Respiratory Rate 18 08/31/22 07:44 Blood Pressure 118/72 08/31/22 07:44 Pulse Oximetry 99 08/31/22 07:44 Temperature 37.0 C 08/31/22 07:44 Temperature Source Oral 08/31/22 07:44 Pulse 60 08/31/22 07:44 Respiratory Rate 18 08/31/22 07:44 Blood Pressure 118/72 08/31/22 07:44 Blood Pressure Position Sitting 08/31/22 07:44 Pulse Oximetry 99 08/31/22 07:44 Oxygen Delivery Method Room Air 08/31/22 07:44 Oxygen Flow Rate 0 08/31/22 07:44 Pain Level 8 08/31/22 07:44
[2022-08-31] MEDS: MORPHine 4 MG/ML SYR 2 MG IVP ×2 (08:00→08:38)
[2022-08-31] MEDS: Ondansetron 4 MG/2 ML VIAL IVP (08:00)
[2022-08-31 08:01] LABS: Lactate 1.4 mmol/L (0.6-1.4)
[2022-08-31] MEDS: Normal Saline 1,000 ML 1000 ML IV (08:01)
[2022-08-31 08:02] LABS: HCT 44.3 % (36.0-46.0); HGB 14.9 g/dL (11.2-15.7); MCH 31.4 pg (27.0-33.0); MCHC 33.6 % (32.0-36.0); MCV 94 fL (80-95); MPV 10.5 fL (8.0-11.0); Platelet Count 267 10^3/uL (130-400); RBC 4.74 10^6/uL (3.93-5.22); RDW 12.5 % (11.7-14.6); RDW-SD 43.2 fL
--- NOTE | 2022-08-31 08:30 | RT.EKG_ITS ---
APPROVED REPORT Exam: Resting ECG Reason for Exam: cp Patient Location: E HR:56 bpm ECG Measurements Heart Rate 56 AXIS IL 175 P -2 QRSd 91 QRS 64 QT 473 T [id number] QTc 456 Conclusion Sinus bradycardia...rate< 60 Abnrm R prog, consider ASMI or lead placement...Q >30mS, diminished R, V1-V2 Nonspecific repol abnormality, diffuse leads...ST dep, T flat/neg, ant/lat/inf Sinus Rhythm. Unchanged from prior 07/29/22
[2022-08-31 08:39] LABS: ALT 24 U/L (14-59); AST 19 U/L (15-37); Albumin 4.2 g/dL (3.4-5.0); Alkaline Phosphatase 60 U/L (46-116); Anion Gap 13.2 mmol/L (3-11); BUN 32 mg/dL (7-18); Bilirubin, Total 0.4 mg/dL (0.2-1.0); CO2 23.8 mmol/L (21.0-32.0); CREATININE 1.5 mg/dL (0.55-1.02); Calcium 9.2 mg/dL (8.5-10.1); Chloride 101 mmol/L (98-107); Estimated GFR 41.41 (mL/min/1.73m2); Glucose 119 mg/dL (74-106); Lipase 27 U/L (16-77); Potassium 3.9 mmol/L (3.5-5.1); Sodium 138 mmol/L (136-145); Total Protein 8.2 g/dL (6.4-8.2)
[2022-08-31 08:49] VITALS: PULSE 56; RESP 18; O2SAT 99
[2022-08-31 08:50] VITALS: PULSE 56; RESP 14; O2SAT 99
[2022-08-31 09:00] VITALS: PULSE 55; RESP 16; O2SAT 97
[2022-08-31 09:03] LABS: Lab Add On Test DONE
[2022-08-31] MEDS: Omnipaque 350 MG/ML 500 ML BTL-Imaging package IJ (09:04)
[2022-08-31] MEDS: Normal Saline - Diluent 50 ML VIAL IJ (09:04)
[2022-08-31 09:21] LABS: Troponin I 644 ng/L (<or=60)
[2022-08-31] MEDS: LORazepam 2 MG/ML VIAL 0.5 MG IVP (10:15)
--- NOTE | 2022-08-31 10:15 | RT.EKG_ITS ---
APPROVED REPORT Exam: Resting ECG Reason for Exam: Patient Location: E HR:41 bpm ECG Measurements Heart Rate 41 AXIS GA 195 P 18 QRSd 90 QRS 46 QT 578 T 84 QTc 475 Conclusion Sinus bradycardia...rate< 60 Probable left atrial enlargement...P >50mS, <-0.10mV V1
[2022-08-31 11:58] LABS: Bilirubin Negative (Negative); Blood Trace-intact (Negative); Clarity Clear (Clear); Glucose >=1000 mg/dL (Negative); Ketones Negative (Negative); Leukocyte Esterase Trace (Negative); Nitrite Negative (Negative); Specific Gravity <= 1.005 (1.005-1.025); pH 5.5 (5-8)
[2022-08-31 12:22] LABS: Bacteria Negative HPF (Negative); C & S Indicated? Yes; Casts Negative LPF (Negative); Crystals Rare Uric Acid HPF (Negative); Epithelial Cells Rare HPF (Negative); Mucus Negative (Negative); Other Cells Rare Renal (Negative); RBC 0-2 HPF (0-2); WBC 0-2 HPF (0-5)
[2022-08-31 12:58] LABS: Troponin I 590 ng/L (<or=60)
== END 2022-08-31 15:24 | disposition home or self-care (01) ==
PROVIDERS: Emergency Provider Emergency Medicine; PCP Physician Assistant
DX: R10.9 Unspecified abdominal pain (principal); R07.9 Chest pain, unspecified; I50.9 Heart failure, unspecified; Z79.899 Other long term (current) drug therapy
CPT/HCPCS: 36410; 36415; 80053; 83690; 85027; 93005; 96361; 96374; 96375; 96376; 99285; 74177; 81003; 81015; 83605; 84484; 87086; 93010; 99284; J2060; J2270; J2405

== ENCOUNTER 2022-09-14 01:31 | Outpatient (CLI) | payer BC, SELFPAY ==
--- NOTE | 2022-09-14 14:15 | DI.MRI_ITS ---
Exam(s) MR BRAIN WO EXAM: MR BRAIN WO CLINICAL HISTORY: ? stroke, left facial and oral numbness,R20.0 TECHNIQUE: Multiplanar multisequence MRI of the brain was performed. COMPARISON: CT CT BRAIN NECK CTA from 07/29/2022 FINDINGS: CEREBRAL PARENCHYMA: There is no evidence of intracranial hemorrhage, mass effect, or shift of midline structures. There are no extra-axial fluid collections. Ventricles are not enlarged or shifted. On the FLAIR images there is some mild increased signal is seen in the lateral aspect of the right ce rebellar hemisphere, not evident on the other sequences and not exhibiting restricted diffusion on DW I. This may represent artifact. There is no abnormal signal abnormality in the periventricular white matter. There is no significant focal signal abnormality evident on diffusion imaging to suggest acute ischem ic event. No evidence of microhemorrhages on SWI. PITUITARY GLAND: No mass nor parasellar abnormality. No obvious abnormality in the cavernous sinuses. FLOW VOIDS: The expected flow void are noted. No evidence of obvious aneurysm nor obvious vascular ma lformation. PARANASAL SINUSES: The visualized paranasal sinuses appear unremarkable. No obvious finding ORBITS: No obvious findings. IMPRESSION: Subtle signal abnormality in the lateral aspect of the right cerebellar hemisphere seen only on FLAIR images. Suspect that this may represent artifact. There is no restricted diffusion at this level n or elsewhere in the brain. DATA REPOSITORY:
== END 2022-09-14 01:51 ==
LOC: DI 01:32
PROVIDERS: PCP Physician Assistant; Visit Provider Nurse Practitioner Adult Health
DX: R20.0 Anesthesia of skin (principal); R90.89 Other abnormal findings on diagnostic imaging of central nervous system
CPT/HCPCS: 70551

== ENCOUNTER 2022-09-26 06:49 | Emergency (ER) | payer BC, SELFPAY ==
[2022-09-26] VITALS (72 sets, daily range): BP systolic 77–113; BP diastolic 28–63; PULSE 45–113; RESP 10–28; TEMP 36.4; O2SAT 92–100
--- NOTE | 2022-09-26 06:45 | RT.EKG_ITS ---
APPROVED REPORT Exam: Resting ECG Reason for Exam: chest pain Patient Location: E HR:68 bpm ECG Measurements Heart Rate 68 AXIS MD 177 P 47 QRSd 92 QRS 77 QT 451 T 9 QTc 455 Conclusion Sinus rhythm...normal P axis, V-rate 60- 99 sinus rhythm, PACS, ST depressions inferiorlateral
--- NOTE | 2022-09-26 07:00 | DI.CT_ITS ---
Exam(s) CT CHEST PE CTA EXAM: CT CHEST PE CTA CLINICAL HISTORY: chest pain, hx of PE. TECHNIQUE: Imaging Protocol: Axial CT angiography was performed with multi-slice acquisition and mu lti-planar and/or 3D reconstructions. CONTRAST MATERIAL: Intravenous: Omnipaque 350 contrast volume:100 mL COMPARISON: CT CT CHEST PE CTA from 07/29/[address] ABDOMEN PELVIS W from 08/31/2022 FINDINGS: Tracheobronchial tree: Patent where visualized. Pulmonary parenchyma: No consolidation or dominant measurable mass. No architectural distortion. Pulmonary Arteries: No evidence of filling defect to suggest pulmonary emboli. Mediastinum and Jessica: No dominant adenopathy or fluid collection. The esophagus is unremarkable. Visualized thyroid gland: Unremarkable. Pleura: No effusion or pneumothorax. Heart: The heart is not dilated. Mild coronary artery calcification. No pericardial effusion. Aorta: Thoracic aorta non-dilated. Due to the bolus timing the aorta is not adequately opacified. Th ere is atherosclerosis present. Upper abdomen: Unremarkable. Soft tissues: Unremarkable. Bones: Within normal limits for the patient's age. IMPRESSION: 1. No evidence of pulmonary embolism or aneurysm. 2. No acute pulmonary process. RADIATION DOSE DELIVERED: 528.25mGy.cm Total DLP DATA REPOSITORY: All CT scans at this facility are submitted to the National Radiology Data Registry (NRDR) Dose Index Registry (DIR) with the [employer] ([employer]). RADIATION OPTIMIZATION: All CT scans at this facility use at least one of these dose optimization te chniques: automated exposure control; mA and/or kV adjustment per patient size (includes targeted exa ms where dose is matched to clinical indication); or iterative reconstruction.
[2022-09-26] MEDS: Aspirin 81 MG CHEW 324 MG CH (07:22)
[2022-09-26 07:23] LABS: Abs Immature Grans 0.01 10^3/uL (0.0-0.06); Absolute Basophil Count 0.04 10^3/uL (0.0-0.2); Absolute Eosinophil Count 0.17 10^3/uL (0.0-0.7); Absolute Lymphocyte Count 1.81 10^3/uL (1.2-3.4); Absolute Monocyte Count 0.57 10^3/uL (0.1-0.8); Absolute Neutrophil Count 4.19 10^3/uL (1.2-6.7); Basophils % 0.6; Eosinophils % 2.5; HCT 48.3 % (36.0-46.0); HGB 16.1 g/dL (11.2-15.7); Immature Grans % 0.1; Lymphocytes % 26.7; MCHC 33.3 % (32.0-36.0); MCV 93 fL (80-95); MPV 10.7 fL (8.0-11.0); Monocytes % 8.4; Neutrophils % 61.7; Platelet Count 248 10^3/uL (130-400); RBC 5.19 10^6/uL (3.93-5.22); RDW 12.5 % (11.7-14.6); WBC 6.79 10^3/uL (4.4-10.8)
[2022-09-26] MEDS: Normal Saline 1,000 ML 1000 ML IV (07:23)
[2022-09-26 07:38] LABS: PTT Activated 28.2 sec (21.5-31.9); Prothrombin Time 9.8 sec (9.3-11.0)
[2022-09-26 07:45] LABS: ALT 25 U/L (14-59); AST 18 U/L (15-37); Albumin 4.1 g/dL (3.4-5.0); Alkaline Phosphatase 63 U/L (46-116); Anion Gap 11.6 mmol/L (3-11); BUN 35 mg/dL (7-18); Bilirubin, Total 0.4 mg/dL (0.2-1.0); CO2 23.4 mmol/L (21.0-32.0); CREATININE 1.3 mg/dL (0.55-1.02); Calcium 9.4 mg/dL (8.5-10.1); Chloride 104 mmol/L (98-107); Estimated GFR 49.17 (mL/min/1.73m2); Glucose 99 mg/dL (74-106); NT-proBNP 913 pg/mL (<300); Potassium 3.5 mmol/L (3.5-5.1); Sodium 139 mmol/L (136-145); Total Protein 7.9 g/dL (6.4-8.2)
[2022-09-26 07:46] LABS: Troponin I 819 ng/L (<or=60)
--- NOTE | 2022-09-26 07:50 | ED.GENADUL_ITS ---
Discharge Plan Disposition Patient Disposition: Admit to [facility] Discharge Details Clinical Impression: Non-ST elevation [place] (NSTEMI) Primary Care Provider: Polo Pearce ED Provider: Aaron Rodriguez [place] Meds and New Rx's Prescriptions: No Action ropinirole 1 mg tablet 1 mg PO BID Rx Instructions: @ 1600 and 2100 lisinopril 5 mg tablet 5 mg PO DAILY Nurtec ODT 75 mg tablet,disintegrating 75 mg PO ONCE PRN (Reason: migraine headache) Qty: 10 3RF Rx Instructions: As a single dose. No more than one dose in 24 hours. atorvastatin 80 mg tablet 80 mg PO QPM empagliflozin 10 mg tablet 10 mg PO DAILY topiramate [Topamax] 100 mg tablet 100 mg PO QHS Qty: 90 3RF gabapentin 600 mg tablet 600 mg PO QHS Qty: 90 3RF fluticasone propionate [Flonase Allergy Relief] 9.9 ML spray,suspension 2 spray NS DAILY duloxetine [Cymbalta] 60 mg capsule,delayed release(DR/EC) 60 mg PO DAILY Qty: 30 2RF albuterol sulfate 90 mcg/actuation HFA aerosol inhaler 2 puff inhalation Q4H PRN loratadine [Allergy Relief (loratadine)] 10 mg tablet 10 mg PO DAILY PRN nitroglycerin 0.4 mg tablet, sublingual 0.4 mg sublingual Q5M PRN Rx Instructions: do not exceed 3 doses per episode Aimovig Autoinjector 140 mg/mL auto-injector 140 mg subcut QMONTH Qty: 1 11RF montelukast 10 mg tablet 10 mg PO DAILY spironolactone 50 mg tablet 50 mg PO DAILY clobetasol 0.05 % ointment 1 applic topical DIRECTED omeprazole 20 mg capsule,delayed release(DR/EC) 20 mg PO DAILY PRN prochlorperazine maleate 5 mg tablet See Rx Instructions PO BID PRN Rx Instructions: 1-2tabs orally twice a day PRN; bumetanide 1 mg tablet 1 mg PO DAILY Patient Comments: TAKE ONE TABLET BY MOUTH EVERY DAY trazodone 100 mg tablet 100 mg PO HS Patient Comments: TAKE ONE TABLET BY MOUTH AT BEDTIME apixaban 5 mg (74 tabs) tablets,dose pack 5 mg PO ONCE Qty: 74 0RF aspirin 81 mg capsule 81 mg PO DAILY Qty: 30 0RF ondansetron 4 mg tablet,disintegrating 4 mg PO BID-TID PRN (Reason: nausea and vomiting) Qty: 10 0RF metoprolol succinate 25 mg tablet extended release 24 hr 12.5 mg PO DAILY Qty: 30 0RF Medical Decision Making 52-year-old female history of NSTEMI, PE presents with chest pain and lightheadedness that began when she was helping her who had fallen. Showing ST segment depression inferior lateral with what appears to be partial right bundle branch block. Consider NSTEMI versus recurrent PE versus dehydration versus electrolyte abnormality versus vasovagal versus orthostasis. Screening labs CT PE, aspirin, fluids given relatively soft blood pressure on arrival. Admission likely 9: 21 patient has been fluid responsive initial blood pressures in the 80s to 90 systolic now 110/62, given symptoms EKG changes history concern for ACS versus vasospasm. Discussed case with Dr. Birch of cardiology who is excepted patient for transfer and likely catheterization. Excepting physician Dr. Hudson. There is no bed availability at [facility] currently although patient's been accepted we have been asked to wait to transfer patient until we get a call back which could take 24 hours. HPI General Date/Time Provider Initiated Documentation: 09/26/22 07:11 . HPI Narrative: 52-year-old female history of NSTEMI, PE presents with sharp chest pain left- sided in nature that began when she was helping her who had fallen. Related Data Home Medications Medication Instructions Recorded Confirmed fluticasone propionate 50 2 spray NS DAILY 12/23/16 09/26/22 mcg/actuation nasal spray,suspension (Flonase Allergy Relief) ropinirole 1 mg tablet 1 mg PO BID 06/12/20 09/26/22 duloxetine 60 mg capsule,delayed 60 mg PO DAILY #30 mg 08/19/20 09/26/22 release (Cymbalta) albuterol sulfate 90 mcg/actuation 2 puff inhalation Q4H PRN 05/30/21 09/26/22 aerosol inhaler loratadine 10 mg tablet (Allergy 10 mg PO DAILY PRN 05/30/21 09/26/22 Relief (loratadine)) atorvastatin 80 mg tablet 80 mg PO QPM 06/10/21 09/26/22 empagliflozin 10 mg tablet 10 mg PO DAILY 06/10/21 09/26/22 nitroglycerin 0.4 mg sublingual 0.4 mg sublingual Q5M PRN 09/25/21 09/26/22 tablet gabapentin 600 mg tablet 600 mg PO QHS #90 tabs 11/24/21 09/26/22 topiramate 100 mg tablet (Topamax) 100 mg PO QHS #90 tab-caps 11/24/21 09/26/22 bumetanide 1 mg tablet 1 mg PO DAILY 07/27/22 09/26/22 trazodone 100 mg tablet 100 mg PO HS 07/27/22 09/26/22 apixaban 5 mg (74 tabs) tablets in 5 mg PO ONCE #74 dose pk 07/28/22 09/26/22 a dose pack erenumab-aooe 140 mg/mL 140 mg subcut QMONTH #1 mL 07/28/22 09/26/22 subcutaneous auto-injector (Aimovig Autoinjector) aspirin 81 mg capsule 81 mg PO DAILY #30 caps 07/29/22 09/26/22 lisinopril 5 mg tablet 5 mg PO DAILY 08/25/22 09/26/22 rimegepant 75 mg disintegrating 75 mg PO ONCE PRN migraine 08/25/22 09/26/22 tablet (Nurtec ODT) headache #10 tabs montelukast 10 mg tablet 10 mg PO DAILY 08/27/22 09/26/22 spironolactone 50 mg tablet 50 mg PO DAILY 08/27/22 09/26/22 clobetasol 0.05 % topical ointment 1 applic topical DIRECTED 08/28/22 09/26/22 omeprazole 20 mg capsule,delayed 20 mg PO DAILY PRN 08/28/22 09/26/22 release prochlorperazine maleate 5 mg See Rx Instructions PO BID PRN 08/28/22 09/26/22 tablet metoprolol succinate 25 mg 12.5 mg PO DAILY #30 tabs 08/31/22 09/26/22 tablet,extended release 24 hr ondansetron 4 mg disintegrating 4 mg PO BID-TID PRN nausea and 08/31/22 09/26/22 tablet vomiting #10 tabs Previous Rx's Medication Instructions Recorded duloxetine 60 mg capsule,delayed 60 mg PO DAILY #30 mg 08/19/20 release (Cymbalta) gabapentin 600 mg tablet 600 mg PO QHS #90 tabs 11/24/21 topiramate 100 mg tablet (Topamax) 100 mg PO QHS #90 tab-caps 11/24/21 apixaban 5 mg (74 tabs) tablets in 5 mg PO ONCE #74 dose pk 07/28/22 a dose pack erenumab-aooe 140 mg/mL 140 mg subcut QMONTH #1 mL 07/28/22 subcutaneous auto-injector (Aimovig Autoinjector) aspirin 81 mg capsule 81 mg PO DAILY #30 caps 07/29/22 rimegepant 75 mg disintegrating 75 mg PO ONCE PRN migraine 08/25/22 tablet (Nurtec ODT) headache #10 tabs metoprolol succinate 25 mg 12.5 mg PO DAILY #30 tabs 08/31/22 tablet,extended release 24 hr ondansetron 4 mg disintegrating 4 mg PO BID-TID PRN nausea and 08/31/22 tablet vomiting #10 tabs Allergies Allergy/AdvReac Type Severity Reaction Status Date / Time acetaminophen [From Tylenol] AdvReac Intermediate Unverified 09/26/22 06:57 clobetasol AdvReac Intermediate Skin Rash Verified 09/26/22 06:57 codeine AdvReac Mild Verified 09/26/22 06:57 ibuprofen AdvReac Unverified 09/26/22 06:57 environmental Allergy Mild Uncoded 09/26/22 06:57 General Stated Complaint: Chest Pain MIKAELA: 2 Review of Systems Narrative: Review of Systems Constitutional: negative Eyes: negative ENT: negative Cardiovascular: Chest pain Respiratory: negative Gastrointestinal: negative : negative Musculoskeletal: negative Skin: negative Neurologic: negative Psych: negative PFSH All Active Problems (Updated 09/26/22 @ 09:25 by Antonio Sanchez MD) Migraine with aura and without status migrainosus, not intractable (Acute 02/24/16) MARYLOU (obstructive sleep apnea) (Chronic) Lichen sclerosus (Acute) Migraine headache without aura (Acute) Chest pain (Acute) Tendinitis (Acute) Rhinitis, nonallergic, chronic (Acute) Restless legs syndrome (Acute) Chronic heart failure with preserved ejection fraction (Chronic) Right upper quadrant abdominal pain (Acute) Elevated troponin I level (Acute) Acute non-ST elevation myocardial infarction (NSTEMI) (Acute) PSVT (paroxysmal supraventricular tachycardia) (Acute) Atypical chest pain (Acute) Pulmonary hypertension (Acute) Abnormal chest CT (Acute) Paresthesia of hand, bilateral (Acute) Bilateral carpal tunnel syndrome (Acute) Avulsion fracture of right talus (Acute 12/30/21) Arthritis of carpometacarpal (CMC) joint of left thumb (Acute) Pulmonary emboli (Acute) Encounter for weight loss counseling (Acute) Bilateral renal artery stenosis (Acute) GERD (gastroesophageal reflux disease) (Chronic) Carpal tunnel syndrome (Acute) Sick euthyroidism (Acute) Congestive heart failure (Chronic) Diarrhea (Acute) Dyspnea (Acute) Allergic asthma (Acute) intermittent, controlled Abdominal pain (Acute) Chest pain (Acute) Restrictive lung disease secondary to obesity (Acute) Non-ST elevation MA (NSTEMI) (Acute) Medical History (Updated 09/26/22 @ 09:25 by Antonio Sanchez MD) Acute bronchitis Acute non-ST elevation myocardial infarction (NSTEMI) Arthritis of carpometacarpal (CMC) joint of left thumb Asthma [facility] (closed head injury) COVID-19 Depression Endometriosis Hx of supraventricular tachycardia Infiltrate of lower lobe of left lung present on imaging study Insomnia Left lateral epicondylitis Left wrist pain Migraine Non-ST elevation MA (NSTEMI) Overweight Surgical History (Updated 08/28/22 @ 08:47 by Neli Rojo) History of partial hysterectomy Hx of tubal ligation Family History Daughter Migraines Mother Hypertension Father Heart disease Social History Smoking/Tobacco Use Status: Never Smoking risk assessment performed?: Yes Alcohol Intake: never Drug use: Never Substance use type: does not use Current gender identity: female Do you feel safe at home: Yes Do you feel safe in your relationship?: Yes Female Reproductive History Menstrual Menopause type: surgical History History 2 Para 2 Hx # Term Pregnancies Multiple births Hx # Pregnancies Ectopic pregnancies AB induced Hx Number of Living Children AB spontaneous Exam Narrative Exam Narrative: Physical Examination General: alert, awake, cooperative, resting comfortably, no acute distress HEENT: normocephalic, atraumatic; PERRL, EOM intact, conjunctiva normal; no nasal discharge; moist mucous membranes, oral and pharyngeal mucosa normal, tolerating secretions Neck: supple, trachea midline; full ROM Chest: normal to inspection Respiratory: normal respiratory effort, speaking in full sentences, clear to auscultation, no wheezing, rales or rhonchi Cardiac: regular rate, regular rhythm, S1S2 intact, no murmurs rubs or gallops GI: abdomen soft, non-tender, non-distended; no palpable mass or hepatosplenomegaly Skin: no lesions, rashes or trauma appreciated Neuro: AAOx3, normal speech, moving all extremities Extremities: No peripheral edema Psych: Appropriate mood and affect Course Vital Signs Vital signs: Vital Signs Temperature 36.4 C 09/26/22 06:52 Pulse 80 09/26/22 06:52 Respiratory Rate 19 09/26/22 06:52 Blood Pressure 106/51 L 09/26/22 06:52 Pulse Oximetry 99 09/26/22 06:52 Temperature 36.4 C 09/26/22 06:52 Temperature Source Oral 09/26/22 06:52 Pulse 80 09/26/22 06:52 Respiratory Rate 16 09/26/22 07:03 Respiratory Effort Normal, Short of Breath 09/26/22 07:03 Respiratory Depth Normal 09/26/22 07:03 Respiratory Pattern Normal 09/26/22 07:03 Blood Pressure 106/51 L 09/26/22 06:52 Blood Pressure Position Supine 09/26/22 06:52 Pulse Oximetry 99 09/26/22 06:52 Oxygen Delivery Method Room Air 09/26/22 06:52 Oxygen Flow Rate 0 09/26/22 06:52 Pain Level 6 09/26/22 07:03 Lab/Test Results Lab/Test Results: Laboratory Tests Range/Units 09/26/22 09/26/22 09/26/22 07:01 07:01 07:01 WBC (4.4-10.8) 10^3/uL 6.79 RBC (3.93-5.22) 10^6/uL 5.19 Hgb (11.2-15.7) g/dL 16.1 H Hct (36.0-46.0) % 48.3 H MCV (80-95) fL 93 MCH (27.0-33.0) pg 31.0 MCHC (32.0-36.0) % 33.3 RDW (11.7-14.6) % 12.5 Plt Count (130-400) 10^3/uL 248 MPV (8.0-11.0) fL 10.7 Immature Gran % 0.1 Neutrophils % 61.7 Lymphocytes % 26.7 Monocytes % 8.4 Eosinophils % 2.5 Basophils % 0.6 Nucleated RBC % (0.0-0.3) % 0.0 Absolute Neutrophils (1.2-6.7) 10^3/uL 4.19 Absolute Lymphocytes (1.2-3.4) 10^3/uL 1.81 Absolute Monocytes (0.1-0.8) 10^3/uL 0.57 Absolute Eosinophils (0.0-0.7) 10^3/uL 0.17 Absolute Basophils (0.0-0.2) 10^3/uL 0.04 PT (9.3-11.0) sec 9.8 INR (0.9-1.1) 1.0 APTT (21.5-31.9) sec 28.2 Sodium (136-145) mmol/L 139 Potassium (3.5-5.1) mmol/L 3.5 Chloride (98-107) mmol/L 104 Carbon Dioxide (21.0-32.0) mmol/L 23.4 Anion Gap (3-11) mmol/L 11.6 H BUN (7-18) mg/dL 35 H Creatinine (0.55-1.02) mg/dL 1.3 H Est GFR (CKD-EPI 2020) (mL/min/1.73m2) 49.17 Glucose (74-106) mg/dL 99 Calcium (8.5-10.1) mg/dL 9.4 Total Bilirubin (0.2-1.0) mg/dL 0.4 AST (15-37) U/L 18 ALT (14-59) U/L 25 Alkaline Phosphatase (46-116) U/L 63 Troponin I (<or=60) ng/L 819 H* NT-Pro-B Natriuret Pep (<300) pg/mL 913 H Total Protein (6.4-8.2) g/dL 7.9 Albumin (3.4-5.0) g/dL 4.1 Sign Out Sign Out Data: Sign Out Comment: exertional and non exertional left anterior chest pain; elevated trop, pending CT PE results; likely NSTEMI, awaiting [facility] cardiology call back; admission v transfer for cath Last updated by Antonio Sanchez MD at 09/26/22 08:56
--- NOTE | 2022-09-26 08:00 | NUR.NOTE ---
Nursing Note: Pt persistently hypotensive as per vitals charted. Dr. Gay aware, fluids ordered and infusing. Pt is alert and mentating appropriately.
[2022-09-26] MEDS: Ondansetron 4 MG/2 ML VIAL (08:08)
[2022-09-26] MEDS: Normal Saline - Diluent 50 ML VIAL IJ (08:10)
--- NOTE | 2022-09-26 08:10 | ED.PROG_ITS ---
Date of service: 09/26/22 Time of Service: 08:10 Medical Decision Making I received signout on this 62-year-old female with a history of NSTEMI now in the emergency department in the setting of chest pain. She is inferior ST segment depressions on her ECG and an elevated troponin above her baseline elevation. She is pending a CT angiogram of her chest to assess for PE. Her original provider will reach out to cardiology at [facility] if her CT scan does not show a large PE as she will likely benefit from left heart catheterization. 10:45 AM Patient was accepted by the hospitalist service with Dr. Trinh. Her repeat troponin down trended. She has also been accepted by [facility] but may not have a bed available to her for another 24 hours. Sign Out Sign Out Data: Sign Out Comment: exertional and non exertional left anterior chest pain; elevated trop, pending CT PE results; likely NSTEMI, awaiting [facility] cardiology call back; admission v transfer for cath Last updated by Antonio Sanchez MD at 09/26/22 08:56 Discharge Plan Disposition Patient Disposition: Transfer-Acute Inpatient Care Specific Acute Inpt Facility: [facility] Discharge Details Clinical Impression: Non-ST elevation [place] (NSTEMI) Primary Care Provider: Polo Pearce ED Provider: Aaron Rodriguez [place] Meds and New Rx's Prescriptions: No Action ropinirole 1 mg tablet 1 mg PO BID Rx Instructions: @ 1600 and 2100 lisinopril 5 mg tablet 5 mg PO DAILY Nurtec ODT 75 mg tablet,disintegrating 75 mg PO ONCE PRN (Reason: migraine headache) Qty: 10 3RF Rx Instructions: As a single dose. No more than one dose in 24 hours. atorvastatin 80 mg tablet 80 mg PO QPM empagliflozin 10 mg tablet 10 mg PO DAILY topiramate [Topamax] 100 mg tablet 100 mg PO QHS Qty: 90 3RF gabapentin 600 mg tablet 600 mg PO QHS Qty: 90 3RF fluticasone propionate [Flonase Allergy Relief] 9.9 ML spray,suspension 2 spray NS DAILY duloxetine [Cymbalta] 60 mg capsule,delayed release(DR/EC) 60 mg PO DAILY Qty: 30 2RF albuterol sulfate 90 mcg/actuation HFA aerosol inhaler 2 puff inhalation Q4H PRN loratadine [Allergy Relief (loratadine)] 10 mg tablet 10 mg PO DAILY PRN nitroglycerin 0.4 mg tablet, sublingual 0.4 mg sublingual Q5M PRN Rx Instructions: do not exceed 3 doses per episode Aimovig Autoinjector 140 mg/mL auto-injector 140 mg subcut QMONTH Qty: 1 11RF montelukast 10 mg tablet 10 mg PO DAILY spironolactone 50 mg tablet 50 mg PO DAILY clobetasol 0.05 % ointment 1 applic topical DIRECTED omeprazole 20 mg capsule,delayed release(DR/EC) 20 mg PO DAILY PRN prochlorperazine maleate 5 mg tablet See Rx Instructions PO BID PRN Rx Instructions: 1-2tabs orally twice a day PRN; bumetanide 1 mg tablet 1 mg PO DAILY Patient Comments: TAKE ONE TABLET BY MOUTH EVERY DAY trazodone 100 mg tablet 100 mg PO HS Patient Comments: TAKE ONE TABLET BY MOUTH AT BEDTIME apixaban 5 mg (74 tabs) tablets,dose pack 5 mg PO ONCE Qty: 74 0RF aspirin 81 mg capsule 81 mg PO DAILY Qty: 30 0RF ondansetron 4 mg tablet,disintegrating 4 mg PO BID-TID PRN (Reason: nausea and vomiting) Qty: 10 0RF metoprolol succinate 25 mg tablet extended release 24 hr 12.5 mg PO DAILY Qty: 30 0RF
--- NOTE | 2022-09-26 09:26 | DI.VRAD_ITS ---
PROCEDURE INFORMATION: Exam: CTA Chest With Contrast Exam date and time: 09/26/2022 8:09 AM Age: 52 years old Clinical indication: Other: Chest pain, HX pe TECHNIQUE: Imaging protocol: Computed tomographic angiography of the chest with contrast. Exam focused on the arteries. 3D rendering (Not supervised by radiologist): MIP and/or 3D reconstructed images were created by the technologist. Contrast volume: 100 ml; Contrast route: INTRAVENOUS (IV); COMPARISON: CT CHEST PE CTA 29/07/2022 20:54 FINDINGS: Pulmonary arteries: Normal. No pulmonary emboli. Aorta: Unremarkable. No aortic aneurysm. No aortic dissection. Lungs: Unremarkable. No consolidation. No masses. Pleural spaces: Unremarkable. No pneumothorax. No pleural effusion. Heart: Unremarkable. No cardiomegaly. No pericardial effusion. Lymph nodes: Unremarkable. No enlarged lymph nodes. Bones/joints: Unremarkable. No acute fracture. Soft tissues: Unremarkable. IMPRESSION: No acute findings. No evidence of pulmonary embolus. Dictated and Authenticated by: Jasiel Torres MD. Ordering:NNEKA Alvarez MD
[2022-09-26] MEDS: Enoxaparin 100 MG/ML SYR SC (09:30)
[2022-09-26 10:42] LABS: Troponin I 756 ng/L (<or=60)
--- NOTE | 2022-09-26 11:00 | RT.EKG_ITS ---
APPROVED REPORT Exam: Resting ECG Reason for Exam: f/u NSTEMI Patient Location: E HR:57 bpm ECG Measurements Heart Rate 57 AXIS GA 170 P 24 QRSd 94 QRS 47 QT 519 T 107 QTc 493 Conclusion Sinus bradycardia...rate< 60 Atrial premature complexes...SV complexes w/ short R-R intvls Narrow complex sinus bradycardia at a rate of 57 with PACs in a pattern of trigeminy. Normal axis. Mild improving ST segment depressions left lateral chest wall leads V4 through V6. T wave inversion in aVL similar to prior. No ST segment elevations. Improved inferior ST segment depressions. Prior dated earlier this morning.
--- NOTE | 2022-09-26 13:35 | ED.PROG_ITS ---
Date of service: 09/26/22 Time of Service: 13:36 Medical Decision Making Patient remained in the ED. A bed became available at [facility]. She was transferred via a civil process server. I updated the patient on her plan of care. Will order repeat troponin prior to transfer. Sign Out Sign Out Data: Sign Out Comment: exertional and non exertional left anterior chest pain; elevated trop, pending CT PE results; likely NSTEMI, awaiting [facility] cardiology call back; admission v transfer for cath Last updated by Antonio Sanchez MD at 09/26/22 08:56 Discharge Plan Disposition Patient Disposition: Transfer-Acute Inpatient Care Specific Acute Inpt Facility: [facility] Discharge Details Clinical Impression: Non-ST elevation [place] (NSTEMI) Primary Care Provider: Polo Pearce ED Provider: Aaron Rodriguez [place] Meds and New Rx's Prescriptions: No Action ropinirole 1 mg tablet 1 mg PO BID Rx Instructions: @ 1600 and 2100 lisinopril 5 mg tablet 5 mg PO DAILY Nurtec ODT 75 mg tablet,disintegrating 75 mg PO ONCE PRN (Reason: migraine headache) Qty: 10 3RF Rx Instructions: As a single dose. No more than one dose in 24 hours. atorvastatin 80 mg tablet 80 mg PO QPM empagliflozin 10 mg tablet 10 mg PO DAILY topiramate [Topamax] 100 mg tablet 100 mg PO QHS Qty: 90 3RF gabapentin 600 mg tablet 600 mg PO QHS Qty: 90 3RF fluticasone propionate [Flonase Allergy Relief] 9.9 ML spray,suspension 2 spray NS DAILY duloxetine [Cymbalta] 60 mg capsule,delayed release(DR/EC) 60 mg PO DAILY Qty: 30 2RF albuterol sulfate 90 mcg/actuation HFA aerosol inhaler 2 puff inhalation Q4H PRN loratadine [Allergy Relief (loratadine)] 10 mg tablet 10 mg PO DAILY PRN nitroglycerin 0.4 mg tablet, sublingual 0.4 mg sublingual Q5M PRN Rx Instructions: do not exceed 3 doses per episode Aimovig Autoinjector 140 mg/mL auto-injector 140 mg subcut QMONTH Qty: 1 11RF montelukast 10 mg tablet 10 mg PO DAILY spironolactone 50 mg tablet 50 mg PO DAILY clobetasol 0.05 % ointment 1 applic topical DIRECTED omeprazole 20 mg capsule,delayed release(DR/EC) 20 mg PO DAILY PRN prochlorperazine maleate 5 mg tablet See Rx Instructions PO BID PRN Rx Instructions: 1-2tabs orally twice a day PRN; bumetanide 1 mg tablet 1 mg PO DAILY Patient Comments: TAKE ONE TABLET BY MOUTH EVERY DAY trazodone 100 mg tablet 100 mg PO HS Patient Comments: TAKE ONE TABLET BY MOUTH AT BEDTIME apixaban 5 mg (74 tabs) tablets,dose pack 5 mg PO ONCE Qty: 74 0RF aspirin 81 mg capsule 81 mg PO DAILY Qty: 30 0RF ondansetron 4 mg tablet,disintegrating 4 mg PO BID-TID PRN (Reason: nausea and vomiting) Qty: 10 0RF metoprolol succinate 25 mg tablet extended release 24 hr 12.5 mg PO DAILY Qty: 30 0RF
[2022-09-26] MEDS: Normal Saline 500 ML 250 ML IV (14:10)
[2022-09-26 14:24] LABS: Troponin I 793 ng/L (<or=60)
== END 2022-09-26 14:36 | disposition short-term general hospital (02) ==
PROVIDERS: Emergency Medicine; Emergency Provider Emergency Medicine; PCP Physician Assistant
DX: R07.89 Other chest pain (principal); I21.4 Non-ST elevation (NSTEMI) myocardial infarction; I50.32 Chronic diastolic (congestive) heart failure; I25.2 Old myocardial infarction; I27.20 Pulmonary hypertension, unspecified; Z86.16 Personal history of COVID-19; Z86.711 Personal history of pulmonary embolism
CPT/HCPCS: 36415; 71275; 80053; 93005; 96360; 96372; 99285; 83880; 84484; 85025; 85610; 85730; 93010; J1650; J2405

== ENCOUNTER 2022-10-09 00:28 | Outpatient (CLI) | payer BC, SELFPAY ==
--- NOTE | 2022-10-09 08:15 | DI.MRI_ITS ---
Exam(s) MR BRAIN WO/W EXAM: MR BRAIN WO/W CLINICAL HISTORY: persist. left facial numbness r/o CN5 lesion, r20.0 TECHNIQUE: Multiplanar multisequence MRI of the brain was performed. Both noninfused and contrast i nfused sequences were performed. IV Contrast injected was 20 cc Dotarem. COMPARISON: MR MR BRAIN WO from 09/14/2022 FINDINGS: CEREBRAL PARENCHYMA: No evidence of intracranial hemorrhage, mass effect nor shift of midline structu re. No extraaxial fluid collections. Ventricles are not enlarged nor shifted. There is no significant focal signal abnormality in the cerebellar hemispheres nor within the denae, m idbrain, and thalami. There is no abnormal signal abnormality in the periventricular white matter. No evidence of demyelin ating disease. DWI: No areas of restricted diffusion to suggest acute ischemic event. SWI: No microhemorrhages evident. There are no ring enhancing lesions in the brain. There is no abnormal meningeal enhancement. IAC'S: There are no masses in the cerebellopontine angles. Also no evidence of intra canalicular aco ustic neuroma-schwannoma. The 7th and 8th cranial nerves appear unremarkable within the internal aud itory canals. SUB MM SLICE SEQUENCE: The 5th cranial nerves appear unremarkable bilaterally in the perimesencephalic cistern as they cours e of anteriorly towards Meckel's cave. No masses at these levels none. Cavernous sinuses appear unr emarkable. PITUITARY GLAND: No mass nor parasellar abnormality. No obvious abnormality in the cavernous sinuses. FLOW VOIDS: The expected flow void are noted. No evidence of obvious aneurysm nor obvious vascular ma lformation. The basilar artery is noted to be a thin vessel throughout its length. It is formed by t he left vertebral artery at the skull base. The right vertebral artery terminates at the skull base. There are posterior communicating arteries also noted at the rrgobl-mg-Cfyltc level adding flow to the posterior cerebral arteries. Therefore this relatively thin basilar artery is on developmental b asis. PARANASAL SINUSES: The visualized paranasal sinuses appear unremarkable. ORBITS: No obvious abnormal findings. IMPRESSION: 1. No significant intracranial findings on this MRI scan of the brain. 2. No abnormal enhancing intracranial findings. There are no ring enhancing lesions in the brain and there is no abnormal meningeal enhancement. 3. Other findings as above. DATA REPOSITORY:
[2022-10-09] MEDS: Gadoterate meglumine 20 ML VIAL IVP (14:12)
[2022-10-09] MEDS: Normal Saline Flush 10 ML SYR IVP (14:12)
== END 2022-10-09 00:48 ==
LOC: DI 00:29
PROVIDERS: PCP Physician Assistant; Visit Provider Nurse Practitioner Adult Health
DX: R20.0 Anesthesia of skin (principal)
CPT/HCPCS: 70553

== ENCOUNTER → 2023-01-01 00:45 | Outpatient (CLI) | payer BC, SELFPAY ==
--- NOTE | 2023-01-01 | DI.MAMMO_ITS ---
Exam(s) MAMMO SCREENING EXAM: MAMMO SCREENING CLINICAL HISTORY: SCREENING, Z12.39 TECHNIQUE: Mammograms were interpreted according to the usual protocol including computer analysis w Silk CAD system, tomosynthesis and C-view imaging. COMPARISON: 2016 and 2020 FINDINGS: The breasts are composed of scattered fibroglandular densities, Breast Density category B. No suspicious masses or suspicious microcalcifications are seen. No skin thickening or abnormal axillary lymph nodes are seen. There has been no significant change from prior exams. IMPRESSION: BI-RADS Category 1, Negative mammogram Yearly screening mammography is recommended. Breast Density - Category B, scattered fibroglandular densities. A negative radiographic report should not delay biopsy if a dominant or clinically suspicious mass is present. Up to ten percent of cancers are not identified on mammography. A negative report may reinforce clinical impression. Adenosis and dense breasts may obscure an underlying neoplasm. False positive reports average 6 to 10%. Patient will receive a letter notifying them of these results.
== END ==
PROVIDERS: PCP Physician Assistant; Visit Provider Physician Assistant
DX: Z12.31 Encounter for screening mammogram for malignant neoplasm of breast (principal); R92.323 Mammographic fibroglandular density, bilateral breasts
CPT/HCPCS: 77063; 77067

== ENCOUNTER 2023-02-08 11:28 | Emergency (ER) | payer BC, SELFPAY ==
[2023-02-08] VITALS (72 sets, daily range): BP systolic 94–123; BP diastolic 34–64; PULSE 51–80; RESP 8–27; TEMP 36.5–37.1; O2SAT 97–100
--- NOTE | 2023-02-08 11:30 | RT.EKG_ITS ---
APPROVED REPORT Exam: Resting ECG Reason for Exam: Patient Location: E HR:69 bpm ECG Measurements Heart Rate 69 AXIS NJ 178 P 29 QRSd 96 QRS 47 QT 481 T 33 QTc 515 Conclusion Sinus rhythm...normal P axis, V-rate 60- 99 Probable left atrial enlargement...P >50mS, <-0.10mV V1 Prolonged QT interval...QTc >510mS ST dep inf lat
[2023-02-08 12:59] LABS: Abs Immature Grans 0.01 10^3/uL (0.0-0.06); Absolute Basophil Count 0.07 10^3/uL (0.0-0.2); Absolute Eosinophil Count 0.22 10^3/uL (0.0-0.7); Absolute Lymphocyte Count 1.92 10^3/uL (1.2-3.4); Absolute Monocyte Count 0.74 10^3/uL (0.1-0.8); Absolute Neutrophil Count 4.39 10^3/uL (1.2-6.7); HCT 42.8 % (36.0-46.0); HGB 14.8 g/dL (11.2-15.7); Immature Grans % 0.1; Lymphocytes % 26.1; MCH 30.8 pg (27.0-33.0); MCHC 34.6 % (32.0-36.0); MCV 89 fL (80-95); MPV 10.8 fL (8.0-11.0); Monocytes % 10.1; Neutrophils % 59.7; Platelet Count 276 10^3/uL (130-400); RBC 4.81 10^6/uL (3.93-5.22); RDW 12.4 % (11.7-14.6); RDW-SD 40.6 fL; WBC 7.35 10^3/uL (4.4-10.8)
[2023-02-08 13:20] LABS: ALT 31 U/L (14-59); AST 28 U/L (15-37); Albumin 4.1 g/dL (3.4-5.0); Alkaline Phosphatase 73 U/L (46-116); Anion Gap 10.4 mmol/L (3-11); BUN 18 mg/dL (7-18); Bilirubin, Total 0.7 mg/dL (0.2-1.0); CO2 28.6 mmol/L (21.0-32.0); CREATININE 1.2 mg/dL (0.55-1.02); Chloride 102 mmol/L (98-107); Estimated GFR 54.13 (mL/min/1.73m2); Glucose 91 mg/dL (74-106); Magnesium 2.4 mg/dL (1.8-2.4); Potassium 3.2 mmol/L (3.5-5.1); Sodium 141 mmol/L (136-145); Total Protein 8.1 g/dL (6.4-8.2)
[2023-02-08 13:29] LABS: NT-proBNP 1256 pg/mL (<300)
[2023-02-08 13:30] LABS: D-Dimer 264 ng/mlFEU (<500)
[2023-02-08 13:32] LABS: Troponin I 638 ng/L (<or=60)
--- NOTE | 2023-02-08 13:34 | ED.GENADUL_ITS ---
Discharge Plan Disposition Patient Disposition: Admit to [facility] Condition: Serious Discharge Details Clinical Impression: Acute non-ST elevation myocardial infarction (NSTEMI) Primary Care Provider: Polo Pearce ED Provider: Stuart Iyer Home Meds and New Rx's Prescriptions: No Action ropinirole 1 mg tablet 1 mg PO BID Rx Instructions: @ 1600 and 2100 Nurtec ODT 75 mg tablet,disintegrating 75 mg PO ONCE PRN (Reason: migraine headache) Qty: 10 3RF Rx Instructions: As a single dose. No more than one dose in 24 hours. amlodipine 5 mg tablet 5 mg PO DAILY isosorbide mononitrate 30 mg tablet extended release 24 hr 30 mg PO DAILY atorvastatin 80 mg tablet 80 mg PO QPM empagliflozin 10 mg tablet 10 mg PO DAILY fluticasone propionate [Flonase Allergy Relief] 9.9 ML spray,suspension 2 spray NS DAILY duloxetine [Cymbalta] 60 mg capsule,delayed release(DR/EC) 60 mg PO DAILY Qty: 30 2RF albuterol sulfate 90 mcg/actuation HFA aerosol inhaler 2 puff inhalation Q4H PRN loratadine [Allergy Relief (loratadine)] 10 mg tablet 10 mg PO DAILY PRN nitroglycerin 0.4 mg tablet, sublingual 0.4 mg sublingual Q5M PRN Rx Instructions: do not exceed 3 doses per episode Aimovig Autoinjector 140 mg/mL auto-injector 140 mg subcut QMONTH Qty: 1 11RF montelukast 10 mg tablet 10 mg PO DAILY clobetasol 0.05 % ointment 1 applic topical DIRECTED omeprazole 20 mg capsule,delayed release(DR/EC) 20 mg PO DAILY PRN prochlorperazine maleate 5 mg tablet See Rx Instructions PO BID PRN Rx Instructions: 1-2tabs orally twice a day PRN; gabapentin 600 mg tablet 600 mg PO QHS Qty: 90 3RF topiramate [Topamax] 100 mg tablet 100 mg PO QHS Qty: 90 3RF trazodone 100 mg tablet 100 mg PO HS Patient Comments: TAKE ONE TABLET BY MOUTH AT BEDTIME apixaban 5 mg (74 tabs) tablets,dose pack 5 mg PO ONCE Qty: 74 0RF ondansetron 4 mg tablet,disintegrating 4 mg PO BID-TID PRN (Reason: nausea and vomiting) Qty: 10 0RF Medical Decision Making 135p --52-year-old female with multiple medical problems including history of NSTEMI in the past, here with left-sided chest pain. Patient is saturating well in no respiratory distress. Hemodynamically stable. Given pleuritic nature of pain, considered acute pulmonary embolism. Patient is on oral anticoagulant. Patient low risk by Wells criteria. D-dimer negative. EKG was reviewed and interpreted by me: Please report, sinus rhythm 69 bpm, ST depression noted inferior laterally, lead II, 3, aVF, V4 to V6. Subtle depressions were noted in the past on EKG 09/26/2022 in the same distribution. I am concerned about the potential for ACS. Initial labs reviewed and troponin is elevated at 638. Plan to initiate treatment with nitroglycerin and aspirin. 320p --hypokalemia noted. I will give potassium chloride. Repeat troponin remains elevated although slightly improved at 622. Patient reassessed and continues to have chest pain despite nitroglycerin sublingual. I will initiate nitroglycerin infusion. I called [facility] transfer center discussed case with cardiology. 355p -- Spoke with [facility] instructor warper Ericka - discussed ED presentation and course including diagnostics. She recommends starting heparin 12hr post last dose eliquis. She recommends loading with Plavix 600mg now. Dr. Calles will accept patient in transfer. Last dose of Eliquis was 9 AM this morning. Lab Data Lab results reviewed: Yes I reviewed the patient's lab results. Labs: Laboratory Tests Range/Units 02/08/23 02/08/23 12:48 14:49 WBC (4.4-10.8) 10^3/uL 7.35 RBC (3.93-5.22) 10^6/uL 4.81 Hgb (11.2-15.7) g/dL 14.8 Hct (36.0-46.0) % 42.8 MCV (80-95) fL 89 MCH (27.0-33.0) pg 30.8 MCHC (32.0-36.0) % 34.6 RDW (11.7-14.6) % 12.4 Plt Count (130-400) 10^3/uL 276 MPV (8.0-11.0) fL 10.8 Immature Gran % 0.1 Neutrophils % 59.7 Lymphocytes % 26.1 Monocytes % 10.1 Eosinophils % 3.0 Basophils % 1.0 Nucleated RBC % (0.0-0.3) % 0.0 Absolute Neutrophils (1.2-6.7) 10^3/uL 4.39 Absolute Lymphocytes (1.2-3.4) 10^3/uL 1.92 Absolute Monocytes (0.1-0.8) 10^3/uL 0.74 Absolute Eosinophils (0.0-0.7) 10^3/uL 0.22 Absolute Basophils (0.0-0.2) 10^3/uL 0.07 D-Dimer (<500) ng/mlFEU 264 Sodium (136-145) mmol/L 141 Potassium (3.5-5.1) mmol/L 3.2 L Chloride (98-107) mmol/L 102 Carbon Dioxide (21.0-32.0) mmol/L 28.6 Anion Gap (3-11) mmol/L 10.4 BUN (7-18) mg/dL 18 Creatinine (0.55-1.02) mg/dL 1.2 H Est GFR (CKD-EPI 2020) (mL/min/1.73m2) 54.13 Glucose (74-106) mg/dL 91 Calcium (8.5-10.1) mg/dL 9.0 Magnesium (1.8-2.4) mg/dL 2.4 Total Bilirubin (0.2-1.0) mg/dL 0.7 AST (15-37) U/L 28 ALT (14-59) U/L 31 Alkaline Phosphatase (46-116) U/L 73 Troponin I (<or=60) ng/L 638 H* 622 H* NT-Pro-B Natriuret Pep (<300) pg/mL 1256 H Total Protein (6.4-8.2) g/dL 8.1 Albumin (3.4-5.0) g/dL 4.1 HPI General Mode of arrival: ambulatory . Date/Time Provider Initiated Documentation: 02/08/23 11:40 . Limitations to Documentation: no limitations . Information obtained by: patient . HPI Narrative: 52-year-old female with multiple medical problems including history of congestive heart failure, pulmonary hypertension, coronary artery disease with NSTEMI in the past, here with chief complaint of chest pain. Patient notes pain in her left chest that radiates into her left arm and left jaw. Pain started this morning and has been intermittent. Pain is pleuritic in nature and worse with deep inspiration. She has associated nausea. Patient notes generally feeling unwell today. No associated leg swelling. No recent surgery, long distance travel or significant immobility. Related Data Home Medications Medication Instructions Recorded Confirmed fluticasone propionate 50 2 spray NS DAILY 12/23/16 02/08/23 mcg/actuation nasal spray,suspension (Flonase Allergy Relief) ropinirole 1 mg tablet 1 mg PO BID 06/12/20 02/08/23 duloxetine 60 mg capsule,delayed 60 mg PO DAILY #30 mg 08/19/20 02/08/23 release (Cymbalta) albuterol sulfate 90 mcg/actuation 2 puff inhalation Q4H PRN 05/30/21 02/08/23 aerosol inhaler loratadine 10 mg tablet (Allergy 10 mg PO DAILY PRN 05/30/21 02/08/23 Relief (loratadine)) atorvastatin 80 mg tablet 80 mg PO QPM 06/10/21 02/08/23 empagliflozin 10 mg tablet 10 mg PO DAILY 06/10/21 02/08/23 nitroglycerin 0.4 mg sublingual 0.4 mg sublingual Q5M PRN 09/25/21 02/08/23 tablet trazodone 100 mg tablet 100 mg PO HS 07/27/22 02/08/23 apixaban 5 mg (74 tabs) tablets in 5 mg PO ONCE #74 dose pk 07/28/22 02/08/23 a dose pack erenumab-aooe 140 mg/mL 140 mg subcut QMONTH #1 mL 07/28/22 02/08/23 subcutaneous auto-injector (Aimovig Autoinjector) rimegepant 75 mg disintegrating 75 mg PO ONCE PRN migraine 08/25/22 02/08/23 tablet (Nurtec ODT) headache #10 tabs montelukast 10 mg tablet 10 mg PO DAILY 08/27/22 02/08/23 clobetasol 0.05 % topical ointment 1 applic topical DIRECTED 08/28/22 02/08/23 omeprazole 20 mg capsule,delayed 20 mg PO DAILY PRN 08/28/22 02/08/23 release prochlorperazine maleate 5 mg See Rx Instructions PO BID PRN 08/28/22 02/08/23 tablet ondansetron 4 mg disintegrating 4 mg PO BID-TID PRN nausea and 08/31/22 02/08/23 tablet vomiting #10 tabs amlodipine 5 mg tablet 5 mg PO DAILY 10/06/22 02/08/23 isosorbide mononitrate 30 mg 30 mg PO DAILY 10/06/22 02/08/23 tablet,extended release 24 hr gabapentin 600 mg tablet 600 mg PO QHS #90 tabs 01/04/23 02/08/23 topiramate 100 mg tablet (Topamax) 100 mg PO QHS #90 tab-caps 01/18/23 02/08/23 Previous Rx's Medication Instructions Recorded duloxetine 60 mg capsule,delayed 60 mg PO DAILY #30 mg 08/19/20 release (Cymbalta) apixaban 5 mg (74 tabs) tablets in 5 mg PO ONCE #74 dose pk 07/28/22 a dose pack erenumab-aooe 140 mg/mL 140 mg subcut QMONTH #1 mL 07/28/22 subcutaneous auto-injector (Aimovig Autoinjector) rimegepant 75 mg disintegrating 75 mg PO ONCE PRN migraine 08/25/22 tablet (Nurtec ODT) headache #10 tabs ondansetron 4 mg disintegrating 4 mg PO BID-TID PRN nausea and 08/31/22 tablet vomiting #10 tabs gabapentin 600 mg tablet 600 mg PO QHS #90 tabs 01/04/23 topiramate 100 mg tablet (Topamax) 100 mg PO QHS #90 tab-caps 01/18/23 Allergies Allergy/AdvReac Type Severity Reaction Status Date / Time acetaminophen [From Tylenol] AdvReac Intermediate Unverified 02/08/23 11:37 clobetasol AdvReac Intermediate Skin Rash Verified 02/08/23 11:37 codeine AdvReac Mild Verified 02/08/23 11:37 ibuprofen AdvReac Unverified 02/08/23 11:37 environmental Allergy Mild Uncoded 02/08/23 11:37 General Stated Complaint: Chest Pain MIKAELA: 3 Review of Systems All systems reviewed & are unremarkable except as noted in HPI and below Constitutional Constitutional: Denies fever(s) and Reports lethargy PFSH All Active Problems (Updated 02/08/23 @ 16:04 by Stuart Iyer MD) Acute non-ST elevation myocardial infarction (NSTEMI) (Acute) Restrictive lung disease secondary to obesity (Acute) Allergic asthma (Acute) intermittent, controlled Dyspnea (Acute) Diarrhea (Acute) Congestive heart failure (Chronic) Sick euthyroidism (Acute) Carpal tunnel syndrome (Acute) GERD (gastroesophageal reflux disease) (Chronic) Bilateral renal artery stenosis (Acute) Encounter for weight loss counseling (Acute) Pulmonary emboli (Acute) Arthritis of carpometacarpal (CMC) joint of left thumb (Acute) Avulsion fracture of right talus (Acute 12/30/21) Bilateral carpal tunnel syndrome (Acute) Paresthesia of hand, bilateral (Acute) Abnormal chest CT (Acute) Pulmonary hypertension (Acute) Atypical chest pain (Acute) PSVT (paroxysmal supraventricular tachycardia) (Acute) Acute non-ST elevation myocardial infarction (NSTEMI) (Acute) Elevated troponin I level (Acute) Right upper quadrant abdominal pain (Acute) Chronic heart failure with preserved ejection fraction (Chronic) Restless legs syndrome (Acute) Rhinitis, nonallergic, chronic (Acute) Tendinitis (Acute) Chest pain (Acute) Migraine headache without aura (Acute) Lichen sclerosus (Acute) MARYLOU (obstructive sleep apnea) (Chronic) Migraine with aura and without status migrainosus, not intractable (Acute 02/24/16) Medical History Hx of supraventricular tachycardia Infiltrate of lower lobe of left lung present on imaging study Acute non-ST elevation myocardial infarction (NSTEMI) COVID-19 Left lateral epicondylitis Arthritis of carpometacarpal (CMC) joint of left thumb Left wrist pain CHI (closed head injury) Acute bronchitis Non-ST elevation SD (NSTEMI) Insomnia Asthma Migraine Overweight Endometriosis Depression Surgical History Hx of tubal ligation History of partial hysterectomy Family History Daughter Migraines Mother Hypertension Father Heart disease Social History Smoking/Tobacco Use Status: Never Smoking risk assessment performed?: Yes Alcohol Intake: never Drug use: Never Substance use type: does not use Current gender identity: female Do you feel safe at home: Yes Do you feel safe in your relationship?: Yes Female Reproductive History Menstrual Menopause type: surgical History History 2 Para 2 Hx # Term Pregnancies Multiple births Hx # Pregnancies Ectopic pregnancies AB induced Hx Number of Living Children AB spontaneous Exam Const General: cooperative and no acute distress HENMT Mouth: moist mucous membranes Eyes Conjunctivae: normal conjunctivae Sclera: normal sclerae Neck Neck: trachea midline Resp Auscultation: clear to auscultation bilaterally, no rales, no rhonchi and no whe ezes Cardio Rate: regular rate and not tachycardic Rhythm: regular rhythm GI Palpation: soft, not firm, no guarding, no masses, not rigid and nontender Skin General skin exam: no rashes or lesions noted Neuro General: patient alert, patient awake and tone normal Extrem General: no calf tenderness and no edema Psych Appearance: grossly normal Mental Status: mental status grossly normal Course Vital Signs Vital signs: Vital Signs Temperature 36.5 C 02/08/23 11:31 Pulse 66 02/08/23 11:31 Respiratory Rate 16 02/08/23 11:31 Blood Pressure 123/63 02/08/23 11:31 Pulse Oximetry 100 02/08/23 11:31 Temperature 36.7 C 02/08/23 11:53 Temperature Source Oral 02/08/23 11:53 Pulse 63 02/08/23 11:53 Respiratory Rate 16 02/08/23 11:53 Respiratory Effort Normal 02/08/23 11:47 Respiratory Depth Normal 02/08/23 11:47 Respiratory Pattern Normal 02/08/23 11:47 Blood Pressure 120/60 02/08/23 11:53 Blood Pressure Position Sitting 02/08/23 11:31 Pulse Oximetry 99 02/08/23 11:53 Oxygen Delivery Method Room Air 02/08/23 11:53 Oxygen Flow Rate 0 02/08/23 11:53 Pain Level 10 02/08/23 11:53 Lab/Test Results Lab/Test Results: Laboratory Tests Range/Units 02/08/23 12:48 WBC (4.4-10.8) 10^3/uL 7.35 RBC (3.93-5.22) 10^6/uL 4.81 Hgb (11.2-15.7) g/dL 14.8 Hct (36.0-46.0) % 42.8 MCV (80-95) fL 89 MCH (27.0-33.0) pg 30.8 MCHC (32.0-36.0) % 34.6 RDW (11.7-14.6) % 12.4 Plt Count (130-400) 10^3/uL 276 MPV (8.0-11.0) fL 10.8 Immature Gran % 0.1 Neutrophils % 59.7 Lymphocytes % 26.1 Monocytes % 10.1 Eosinophils % 3.0 Basophils % 1.0 Nucleated RBC % (0.0-0.3) % 0.0 Absolute Neutrophils (1.2-6.7) 10^3/uL 4.39 Absolute Lymphocytes (1.2-3.4) 10^3/uL 1.92 Absolute Monocytes (0.1-0.8) 10^3/uL 0.74 Absolute Eosinophils (0.0-0.7) 10^3/uL 0.22 Absolute Basophils (0.0-0.2) 10^3/uL 0.07 D-Dimer (<500) ng/mlFEU 264 Sodium (136-145) mmol/L 141 Potassium (3.5-5.1) mmol/L 3.2 L Chloride (98-107) mmol/L 102 Carbon Dioxide (21.0-32.0) mmol/L 28.6 Anion Gap (3-11) mmol/L 10.4 BUN (7-18) mg/dL 18 Creatinine (0.55-1.02) mg/dL 1.2 H Est GFR (CKD-EPI 2020) (mL/min/1.73m2) 54.13 Glucose (74-106) mg/dL 91 Calcium (8.5-10.1) mg/dL 9.0 Magnesium (1.8-2.4) mg/dL 2.4 Total Bilirubin (0.2-1.0) mg/dL 0.7 AST (15-37) U/L 28 ALT (14-59) U/L 31 Alkaline Phosphatase (46-116) U/L 73 Troponin I (<or=60) ng/L 638 H* NT-Pro-B Natriuret Pep (<300) pg/mL 1256 H Total Protein (6.4-8.2) g/dL 8.1 Albumin (3.4-5.0) g/dL 4.1 Critical Care Time Critical Care Time Critical Care Time: Yes Total Critical Care Time: 55 Attestation: I spent greater than 55 minutes addressing this patient's immediate life threats. Please see MDM section of note. This time was spent engaged in work directly related to the patient's care, exclusive of separate procedures, and failure to initiate these interventions would have likely resulted in clinically significant or life threatening deterioration in the patient's condition.
[2023-02-08] MEDS: Potassium Chloride 20 MEQ TABCR PO (13:52)
[2023-02-08] MEDS: Aspirin 325 MG TAB PO (13:52)
[2023-02-08] MEDS: nitroGLYcerin 0.4 MG TAB SL (13:53)
--- NOTE | 2023-02-08 14:26 | DI.RAD_ITS ---
Exam(s) XR CHEST 2V PA LATERAL EXAM: XR CHEST 2V PA LATERAL CLINICAL HISTORY: left sided chest pain TECHNIQUE: 2D digital imaging was performed. COMPARISON: No exams were available for comparison FINDINGS: HEART: Normal size. Aorta: Not dilated. PULMONARY VASCULATURE: Normal. LUNGS: Clear. PLEURAL SPACE: No pleural effusion or pneumothorax. BONE:Unremarkable for age. Soft tissues: Unremarkable. IMPRESSION: No acute abnormality. DATA REPOSITORY: RADIATION DOSE DELIVERED:
[2023-02-08 15:16] LABS: Troponin I 622 ng/L (<or=60)
[2023-02-08] MEDS: nitroGLYcerin in D5W 50 MG/250 ML BTL IV (15:38)
== END 2023-02-08 16:58 | disposition short-term general hospital (02) ==
PROVIDERS: Emergency Provider Student in an Organized Health Care Education/Training Program; PCP Physician Assistant
DX: I21.4 Non-ST elevation (NSTEMI) myocardial infarction (principal); R94.31 Abnormal electrocardiogram [ECG] [EKG]; E87.6 Hypokalemia; I25.10 Atherosclerotic heart disease of native coronary artery without angina pectoris; I25.2 Old myocardial infarction; Z79.01 Long term (current) use of anticoagulants
CPT/HCPCS: 80053; 93005; 99285; 71046; 83735; 83880; 84484; 85025; 85379; 93010; 99284

== ENCOUNTER 2023-02-24 11:03 | Outpatient (RCR) | payer BC, SELFPAY | END 2023-03-07 23:59 | disposition home or self-care (01) | LOC: CR 11:03 | PROVIDERS: PCP Physician Assistant; Visit Provider Family Medicine | DX: I25.2 Old myocardial infarction (principal); Z51.89 Encounter for other specified aftercare | CPT/HCPCS: S9472 ==

== ENCOUNTER 2023-02-25 14:15 | Outpatient (REF) | payer BC, SELFPAY ==
--- OUTSIDE RECORDS SUMMARY | 2023-02-25 14:16 | XMS_ITS | Continuity of Care Document ---
Author Name Unknown Organization [facility] Address [address] [place] [address] Care Team Providers Care Admitting Clerk Name Role Phone Ramses [facility]Polo Primary Care Physician Encounter [facility] [id number] Date(s): 02/23/23 - 02/23/23 [facility] [address] [place] [address] Discharge Disposition: Home Allergies, Adverse Reactions, Alerts No Known Medication Allergies Assessment and Plan Future Appointments Medications Trudy 24 Hour Allergy oral tablet 180 mg = 1 tab, Oral, Daily, # 30 tab, 0 Refill(s) Start Date: 06/01/22 Status: Ordered atorvastatin 20 mg oral tablet 20 mg = 1 tab, Oral, Daily, # 90 tab, 0 Refill(s) Start Date: 02/23/23 Status: Ordered DULoxetine 60 mg oral delayed release capsule 60 mg = 1 cap, Oral, Daily, do not crush or chew, # 30 cap, 0 Refill(s) Start Date: 06/01/22 Status: Ordered Eliquis 5 mg oral tablet 5 mg = 1 tab, Oral, Daily RT, # 60 tab, 0 Refill(s) Start Date: 02/23/23 Status: Ordered Flonase Allergy Relief 50 mcg/inh nasal spray 0 Refill(s) Start Date: 06/01/22 Status: Ordered gabapentin 300 mg oral capsule 300 mg = 1 cap, Oral, TID, # 30 cap, 0 Refill(s) Start Date: 06/01/22 Status: Ordered Jardiance 10 mg oral tablet 10 mg = 1 tab, Oral, every morning, # 30 tab, 0 Refill(s) Start Date: 02/23/23 Status: Ordered prochlorperazine 5 mg oral tablet See Instructions, 3 tab Oral, 0 Refill(s) Start Date: 06/01/22 Status: Ordered rOPINIRole 1 mg oral tablet See Instructions, take 1 PO at 4 pm and 8 pm, # 60 tab, 5 Refill(s), Pharmacy: [id number], 162.56, cm, 06/04/22 8:01:00 EDT, Height Start Date: 02/15/23 Status: Ordered spironolactone 25 mg oral tablet 25 mg = 1 tab, Oral, Daily, # 30 tab, 0 Refill(s) Start Date: 02/23/23 Status: Ordered topiramate 100 mg oral tablet 100 mg = 1 tab, Oral, BID, # 60 tab, 0 Refill(s) Start Date: 06/01/22 Status: Ordered torsemide 20 mg oral tablet 20 mg = 1 tab, Oral, Daily, # 30 tab, 0 Refill(s) Start Date: 02/23/23 Status: Ordered traZODone 100 mg oral tablet 100 mg = 1 tab, Oral, every night at bedtime, # 30 tab, 11 Refill(s), Pharmacy: [id number] Start Date: 06/04/22 Status: Ordered Problem List Condition Confirmation Course Effective Dates Status [facility] Informant A-fib Confirmed Active Insomnia Confirmed Active Migraine with aura Confirmed Active Obstructive sleep apnea syndrome Confirmed Active Restless legs Confirmed Active Social History Social History Type Response Tobacco Never tobacco user T obacco Use:. Sex Female Patient Care team information Care Team Personnel Name: Ramses [facility]Polo BOUDREAUX Position: No Access Member Role: Primary Care Physician Address: Address: [address]
[2023-02-25 15:59] LABS: Anion Gap 12.6 mmol/L (3-11); BUN 32 mg/dL (7-18); CO2 22.4 mmol/L (21.0-32.0); CREATININE 1.3 mg/dL (0.55-1.02); Calcium 9.3 mg/dL (8.5-10.1); Chloride 107 mmol/L (98-107); Estimated GFR 49.17 (mL/min/1.73m2); Glucose 107 mg/dL (74-106); Sodium 142 mmol/L (136-145); TSH (W/Ref FT4) 3.08 uIU/mL (0.36-3.74)
== END 2023-02-25 14:16 | disposition home or self-care (01) ==
LOC: NCHCN 14:15
PROVIDERS: PCP Physician Assistant; Visit Provider Nurse Practitioner Family
DX: R10.9 Unspecified abdominal pain (principal); E07.81 Sick-euthyroid syndrome
CPT/HCPCS: 80048; 84443

== ENCOUNTER 2023-03-29 13:05 | Outpatient (RCR) | payer BC, SELFPAY | END 2023-04-07 23:59 | disposition home or self-care (01) | LOC: CR 13:05 | PROVIDERS: PCP Physician Assistant; Visit Provider Internal Medicine Interventional Cardiology | DX: I25.2 Old myocardial infarction (principal); Z51.89 Encounter for other specified aftercare | CPT/HCPCS: S9472 ==

== ENCOUNTER 2023-04-12 13:20 | Outpatient (RCR) | payer BC, SELFPAY | END 2023-05-06 23:59 | disposition home or self-care (01) | LOC: CR 13:20 | PROVIDERS: PCP Physician Assistant; Visit Provider Internal Medicine Cardiovascular Disease | DX: I21.4 Non-ST elevation (NSTEMI) myocardial infarction (principal); Z51.89 Encounter for other specified aftercare | CPT/HCPCS: S9472 ==

== ENCOUNTER 2023-04-16 14:23 | Emergency (ER) | payer BC, SELFPAY ==
[2023-04-16] VITALS (61 sets, daily range): BP systolic 92–131; BP diastolic 31–74; PULSE 41–70; RESP 12–18; TEMP 36.5; O2SAT 88–99
--- NOTE | 2023-04-16 14:45 | DI.CT_ITS ---
Exam(s) CT CHEST PE CTA EXAM: CT CHEST PE CTA CLINICAL HISTORY: chest pain. TECHNIQUE: Imaging Protocol: Axial CT angiography was performed with multi-slice acquisition and mu lti-planar reconstructions as well as axial, coronal and sagittal MIP reconstructions. CONTRAST MATERIAL: Intravenous: Omnipaque 350 Contrast volume:100 ml COMPARISON: CR XR CHEST 2V PA LATERAL from 02/08/[address] RENAL COLIC WO from 03/25/2023 FINDINGS: Pulmonary Arteries: No evidence of filling defect to suggest pulmonary emboli. Prominent Tracheobronchial tree: No mucous plugging. Mediastinum and Jessica: No dominant adenopathy or fluid collection. Pulmonary parenchyma: Limited evaluation due to expiratory changes and respiratory motion. Diffuse b ilateral ground-glass infiltrates not excluded. No consolidation or dominant measurable mass. Pleura: No effusion or pneumothorax. Heart: The heart is umvo-qu-ebakjjbygl dilated. Mild coronary artery calcifications are seen. Smal l pericardial effusion. Aorta: Thoracic aorta non-dilated. No dissection. Upper abdomen: No acute findings. Bones: Unremarkable for age. Tubes, Catheters, and Lines: None Soft tissues: Unremarkable. IMPRESSION: No evidence of pulmonary embolism. Moderate cardiac dilatation, of the left atrium and left ventricle as well as right atrium. Small pe ricardial effusion. Question of diffuse bilateral ground-glass opacities versus expiratory changes. RADIATION DOSE DELIVERED: 543.09mGy.cm Total DLP DATA REPOSITORY: All CT scans at this facility are submitted to the National Radiology Data Registry (NRDR) Dose Index Registry (DIR) with the [employer] (A[employer]). RADIATION OPTIMIZATION: All CT scans at this facility use at least one of these dose optimization te chniques: automated exposure control; mA and/or kV adjustment per patient size (includes targeted exa ms where dose is matched to clinical indication); or iterative reconstruction.
--- NOTE | 2023-04-16 14:45 | RT.EKG_ITS ---
APPROVED REPORT Exam: Resting ECG Reason for Exam: chest pain Patient Location: E HR:57 bpm ECG Measurements Heart Rate 57 AXIS NJ 184 P 18 QRSd 91 QRS 44 QT 515 T 66 QTc 502 Conclusion Bradycardia with irregular rate...V-rate 47- 70, mean < 60 st dep inf, lat
--- NOTE | 2023-04-16 14:57 | W.ED.GENAD ---
HPI General Mode of arrival: ambulatory. Date/Time Provider Initiated Documentation: 04/16/23 14:39. Limitations to Documentation: no limitations. Information obtained by: patient. HPI Narrative: 53-year-old female with multiple medical including history of pulmonary embolism, coronary artery disease, A-fib status post ablation 2 weeks ago, here with chest tightness described as a squeezing of her chest. She notes chronic sensation of chest squeezing but worse over the past 1 week. No associated shortness of breath but symptoms do worsen with deep inspiration. No associated leg swelling or calf pain. She has been taking her Eliquis as prescribed. No associated abdominal pain. Patient has no chronic cough since having COVID in February. Seems to be progressive. Related Data Home Medications Medication Instructions Recorded Confirmed fluticasone propionate 50 2 spray NS DAILY 12/23/16 04/16/23 mcg/actuation nasal spray,suspension (Flonase Allergy Relief) ropinirole 1 mg tablet 1 mg PO BID 06/12/20 04/16/23 duloxetine 60 mg capsule,delayed 60 mg PO DAILY #30 mg 08/19/20 04/16/23 release (Cymbalta) albuterol sulfate 90 mcg/actuation 2 puff inhalation Q4H PRN 05/30/21 04/16/23 aerosol inhaler loratadine 10 mg tablet (Allergy 10 mg PO DAILY PRN 05/30/21 04/16/23 Relief (loratadine)) atorvastatin 80 mg tablet 80 mg PO QPM 06/10/21 04/16/23 empagliflozin 10 mg tablet 10 mg PO DAILY 06/10/21 04/16/23 nitroglycerin 0.4 mg sublingual 0.4 mg sublingual Q5M PRN 09/25/21 04/16/23 tablet apixaban 5 mg (74 tabs) tablets in 5 mg PO ONCE #74 dose pk 07/28/22 04/16/23 a dose pack erenumab-aooe 140 mg/mL 140 mg subcut QMONTH #1 mL 07/28/22 04/16/23 subcutaneous auto-injector (Aimovig Autoinjector) rimegepant 75 mg disintegrating 75 mg PO ONCE PRN migraine 08/25/22 04/16/23 tablet (Nurtec ODT) headache #10 tabs montelukast 10 mg tablet 10 mg PO DAILY 08/27/22 04/16/23 clobetasol 0.05 % topical ointment 1 applic topical DIRECTED 08/28/22 04/16/23 omeprazole 20 mg capsule,delayed 20 mg PO DAILY PRN 08/28/22 04/16/23 release amlodipine 5 mg tablet 5 mg PO DAILY 10/06/22 04/16/23 isosorbide mononitrate 30 mg 30 mg PO DAILY 10/06/22 04/16/23 tablet,extended release 24 hr gabapentin 600 mg tablet 600 mg PO QHS #90 tabs 01/04/23 04/16/23 topiramate 100 mg tablet (Topamax) 100 mg PO QHS #90 tab-caps 01/18/23 04/16/23 melatonin 10 mg capsule 10 mg PO HS PRN 04/16/23 04/16/23 Previous Rx's Medication Instructions Recorded duloxetine 60 mg capsule,delayed 60 mg PO DAILY #30 mg 08/19/20 release (Cymbalta) apixaban 5 mg (74 tabs) tablets in 5 mg PO ONCE #74 dose pk 07/28/22 a dose pack erenumab-aooe 140 mg/mL 140 mg subcut QMONTH #1 mL 07/28/22 subcutaneous auto-injector (Aimovig Autoinjector) rimegepant 75 mg disintegrating 75 mg PO ONCE PRN migraine 08/25/22 tablet (Nurtec ODT) headache #10 tabs gabapentin 600 mg tablet 600 mg PO QHS #90 tabs 01/04/23 topiramate 100 mg tablet (Topamax) 100 mg PO QHS #90 tab-caps 01/18/23 Allergies Allergy/AdvReac Type Severity Reaction Status Date / Time acetaminophen [From Tylenol] AdvReac Intermediate Other (See Unverified 04/16/23 14:30 Comment) clobetasol AdvReac Intermediate Skin Rash Verified 04/16/23 14:30 codeine AdvReac Mild Other (See Verified 04/16/23 14:30 Comment) ibuprofen AdvReac Other (See Unverified 04/16/23 14:30 Comment) environmental Allergy Mild Other (See Uncoded 04/16/23 14:30 Comment) General Stated Complaint: GenMedical MIKAELA: 3 Review of Systems Constitutional Constitutional: Denies fever(s) Cardiovascular Cardiovascular: Reports as per HPI Exam Const General: cooperative and no acute distress HENMT Mouth: moist mucous membranes Eyes Conjunctivae: normal conjunctivae Sclera: normal sclerae Neck Neck: trachea midline and supple Resp Auscultation: clear to auscultation bilaterally, no rales, no rhonchi and no wheezes Cardio Rate: regular rate and not tachycardic Rhythm: regular rhythm GI Palpation: soft, not firm, no guarding, no masses, not rigid and nontender Skin General skin exam: no rashes or lesions noted Neuro General: patient alert, patient awake and tone normal Extrem General: no edema Psych Appearance: grossly normal Mental Status: mental status grossly normal Course Vital Signs Vital signs: Vital Signs Temperature 36.5 C 04/16/23 14:27 Pulse 60 04/16/23 14:27 Respiratory Rate 18 04/16/23 14:27 Blood Pressure 126/69 04/16/23 14:27 Pulse Oximetry 98 04/16/23 14:27 Temperature 36.5 C 04/16/23 14:27 Temperature Source Skin 04/16/23 14:27 Pulse 60 04/16/23 14:27 Respiratory Rate 18 04/16/23 14:27 Respiratory Effort Normal, Non-Labored 04/16/23 14:48 Respiratory Depth Normal 04/16/23 14:48 Respiratory Pattern Normal 04/16/23 14:48 Blood Pressure 126/69 04/16/23 14:27 Blood Pressure Position Sitting 04/16/23 14:27 Pulse Oximetry 98 04/16/23 14:27 Oxygen Delivery Method Room Air 04/16/23 14:27 Oxygen Flow Rate 0 04/16/23 14:27 Pain Level 6 04/16/23 14:27 Medical Decision Making 1500 -- 53yo female with history of CAD, pulmonary embolism, A-fib status post recent ablation, here with chest discomfort, sensation like her ribs are being squeezed which is chronic although worse over the past 1 week. Worse kying flat. Patient is hemodynamically stable. Saturating well no respiratory distress. Given past medical history and risk factors, consider acute pulmonary embolism versus ACS versus pericardial effusion. Plan to obtain CT of the chest. EKG pending. 172 --I reviewed past medical record and note additional history of pulmonary hypertension, chronic heart failure with preserved ejection fraction. CT of the chest was interpreted by radiology: No pulmonary embolism, cardiac dilation of the left atrophia, left ventricle, right atria, small pericardial effusion. Diffuse groundglass opacities noted. Labs reviewed and patient has significantly elevated troponin. Of note, this has been elevated multiple times in the past. Patient also with elevated BNP of 1100. I spoke with [facility] [place] [facility] transfer center to discuss with cardiology for potential transfer. 1834 -- Patient had episode of chest pain radiating to neck. Nitro SL x1 resolved symptoms. Compazine IV for nausea. Repeat EKG was performed and reviewed and interpreted by me: Please report, no significant changes from prior. --Repeat troponin remains elevated. 1944 --I spoke with cardiology at [facility] [place], discussed ED presentation course, EKGs and CT imaging was sent for review. The recommend initiating treating for potential NSTEMI with heparin, no bolus, full dose aspirin and atorvastatin. They do not recommend Plavix at this time. They do note this could be pericarditis and suggest should she have recurrent. Consider colchicine. They will except the patient in transfer. Accepting physician is Dr. Gallegos. Unfortunately patient cannot be accepted tonight and expect bed availability tomorrow. Lab Data Lab results reviewed: Yes I reviewed the patient's lab results. Labs: Laboratory Tests Range/Units 04/16/23 04/16/23 04/16/23 15:30 15:30 17:18 WBC (4.4-10.8) 10^3/uL 6.59 RBC (3.93-5.22) 10^6/uL 4.93 Hgb (11.2-15.7) g/dL 14.9 Hct (36.0-46.0) % 44.6 MCV (80-95) fL 91 MCH (27.0-33.0) pg 30.2 MCHC (32.0-36.0) % 33.4 RDW (11.7-14.6) % 12.7 Plt Count (130-400) 10^3/uL 278 MPV (8.0-11.0) fL 10.9 Immature Gran % 0.3 Neutrophils % 56.5 Lymphocytes % 29.1 Monocytes % 9.0 Eosinophils % 4.2 Basophils % 0.9 Nucleated RBC % (0.0-0.3) % 0.0 Absolute Neutrophils (1.2-6.7) 10^3/uL 3.72 Absolute Lymphocytes (1.2-3.4) 10^3/uL 1.92 Absolute Monocytes (0.1-0.8) 10^3/uL 0.59 Absolute Eosinophils (0.0-0.7) 10^3/uL 0.28 Absolute Basophils (0.0-0.2) 10^3/uL 0.06 Sodium (136-145) mmol/L 141 Potassium (3.5-5.1) mmol/L 3.9 Chloride (98-107) mmol/L 104 Carbon Dioxide (21.0-32.0) mmol/L 25.3 Anion Gap (3-11) mmol/L 11.7 H BUN (7-18) mg/dL 22 H Creatinine (0.55-1.02) mg/dL 1.4 H Est GFR (CKD-EPI 2020) (mL/min/1.73m2) 44.71 Glucose (74-106) mg/dL 97 Calcium (8.5-10.1) mg/dL 9.2 Magnesium (1.8-2.4) mg/dL 2.4 Total Bilirubin (0.2-1.0) mg/dL 0.3 AST (15-37) U/L 12 L ALT (14-59) U/L 25 Alkaline Phosphatase (46-116) U/L 66 Troponin I Cancelled 589 H* NT-Pro-B Natriuret Pep (<300) pg/mL 1121 H Total Protein (6.4-8.2) g/dL 7.7 Albumin (3.4-5.0) g/dL 4.0 COVID-19 Source Nasal/Nares SARS-CoV-2 (PCR) (Negative) Negative Range/Units 04/16/23 18:25 WBC (4.4-10.8) 10^3/uL RBC (3.93-5.22) 10^6/uL Hgb (11.2-15.7) g/dL Hct (36.0-46.0) % MCV (80-95) fL MCH (27.0-33.0) pg MCHC (32.0-36.0) % RDW (11.7-14.6) % Plt Count (130-400) 10^3/uL MPV (8.0-11.0) fL Immature Gran % Neutrophils % Lymphocytes % Monocytes % Eosinophils % Basophils % Nucleated RBC % (0.0-0.3) % Absolute Neutrophils (1.2-6.7) 10^3/uL Absolute Lymphocytes (1.2-3.4) 10^3/uL Absolute Monocytes (0.1-0.8) 10^3/uL Absolute Eosinophils (0.0-0.7) 10^3/uL Absolute Basophils (0.0-0.2) 10^3/uL Sodium (136-145) mmol/L Potassium (3.5-5.1) mmol/L Chloride (98-107) mmol/L Carbon Dioxide (21.0-32.0) mmol/L Anion Gap (3-11) mmol/L BUN (7-18) mg/dL Creatinine (0.55-1.02) mg/dL Est GFR (CKD-EPI 2020) (mL/min/1.73m2) Glucose (74-106) mg/dL Calcium (8.5-10.1) mg/dL Magnesium (1.8-2.4) mg/dL Total Bilirubin (0.2-1.0) mg/dL AST (15-37) U/L ALT (14-59) U/L Alkaline Phosphatase (46-116) U/L Troponin I 533 H* NT-Pro-B Natriuret Pep (<300) pg/mL Total Protein (6.4-8.2) g/dL Albumin (3.4-5.0) g/dL COVID-19 Source SARS-CoV-2 (PCR) (Negative) Quality:SDOH Health Related Social Needs: No Data to Display Critical Care Time Critical Care Time Critical Care Time: Yes Total Critical Care Time: 60 Attestation: I spent greater than 60 minutes addressing this patient's immediate life threats. Please see MDM section of note. This time was spent engaged in work directly related to the patient's care, exclusive of separate procedures, and failure to initiate these interventions would have likely resulted in clinically significant or life threatening deterioration in the patient's condition. PFSH All Active Problems (Updated 04/16/23 @ 23:15 by Stuart Iyer MD) Ground glass opacity present on imaging of lung (Acute) Pericardial effusion (Acute) Non-ST elevation AK (NSTEMI) (Acute) Restrictive lung disease secondary to obesity (Acute) Allergic asthma (Acute) intermittent, controlled Dyspnea (Acute) Diarrhea (Acute) Congestive heart failure (Chronic) Sick euthyroidism (Acute) Carpal tunnel syndrome (Acute) GERD (gastroesophageal reflux disease) (Chronic) Bilateral renal artery stenosis (Acute) Encounter for weight loss counseling (Acute) Pulmonary emboli (Acute) Arthritis of carpometacarpal (CMC) joint of left thumb (Acute) Avulsion fracture of right talus (Acute 12/30/21) Bilateral carpal tunnel syndrome (Acute) Paresthesia of hand, bilateral (Acute) Abnormal chest CT (Acute) Pulmonary hypertension (Acute) Atypical chest pain (Acute) PSVT (paroxysmal supraventricular tachycardia) (Acute) Acute non-ST elevation myocardial infarction (NSTEMI) (Acute) Elevated troponin I level (Acute) Right upper quadrant abdominal pain (Acute) Chronic heart failure with preserved ejection fraction (Chronic) Restless legs syndrome (Acute) Rhinitis, nonallergic, chronic (Acute) Tendinitis (Acute) Chest pain (Acute) Migraine headache without aura (Acute) Lichen sclerosus (Acute) MARYLOU (obstructive sleep apnea) (Chronic) Migraine with aura and without status migrainosus, not intractable (Acute 02/24/16) Medical History Hx of supraventricular tachycardia Infiltrate of lower lobe of left lung present on imaging study Acute non-ST elevation myocardial infarction (NSTEMI) COVID-19 Left lateral epicondylitis Arthritis of carpometacarpal (CMC) joint of left thumb Left wrist pain CHI (closed head injury) Acute bronchitis Non-ST elevation AK (NSTEMI) Insomnia Asthma Migraine Overweight Endometriosis Depression Surgical History Hx of tubal ligation History of partial hysterectomy Family History Daughter Migraines Mother Hypertension Father Heart disease Social History Smoking/Tobacco Use Status: Never Smoking risk assessment performed?: Yes Alcohol Intake: never Drug use: Never Substance use type: does not use Housing: house Current gender identity: female Do you feel safe at home: Yes Do you feel safe in your relationship?: Yes Female Reproductive History Menstrual Menopause type: surgical History History 2 Para 2 Hx # Term Pregnancies Multiple births Hx # Pregnancies Ectopic pregnancies AB induced Hx Number of Living Children AB spontaneous Discharge Plan Disposition Patient Disposition: Transfer-Acute Inpatient Care Specific Acute Inpt Facility: [facility] Condition: Serious Discharge Details Chief Complaint: GenMedical Clinical Impression: Non-ST elevation AK (NSTEMI), Pericardial effusion, Ground glass opacity present on imaging of lung Primary Care Provider: Polo Pearce ED Provider: Stuart Iyer Home Meds and New Rx's Prescriptions: No Action ropinirole 1 mg tablet 1 mg PO BID Rx Instructions: @ 1600 and 2100 Nurtec ODT 75 mg tablet,disintegrating 75 mg PO ONCE PRN (Reason: migraine headache) Qty: 10 3RF Rx Instructions: As a single dose. No more than one dose in 24 hours. amlodipine 5 mg tablet 5 mg PO DAILY isosorbide mononitrate 30 mg tablet extended release 24 hr 30 mg PO DAILY atorvastatin 80 mg tablet 80 mg PO QPM empagliflozin 10 mg tablet 10 mg PO DAILY fluticasone propionate [Flonase Allergy Relief] 9.9 ML spray,suspension 2 spray NS DAILY duloxetine [Cymbalta] 60 mg capsule,delayed release(DR/EC) 60 mg PO DAILY Qty: 30 2RF albuterol sulfate 90 mcg/actuation HFA aerosol inhaler 2 puff inhalation Q4H PRN loratadine [Allergy Relief (loratadine)] 10 mg tablet 10 mg PO DAILY PRN nitroglycerin 0.4 mg tablet, sublingual 0.4 mg sublingual Q5M PRN Rx Instructions: do not exceed 3 doses per episode Aimovig Autoinjector 140 mg/mL auto-injector 140 mg subcut QMONTH Qty: 1 11RF montelukast 10 mg tablet 10 mg PO DAILY clobetasol 0.05 % ointment 1 applic topical DIRECTED omeprazole 20 mg capsule,delayed release(DR/EC) 20 mg PO DAILY PRN gabapentin 600 mg tablet 600 mg PO QHS Qty: 90 3RF topiramate [Topamax] 100 mg tablet 100 mg PO QHS Qty: 90 3RF apixaban 5 mg (74 tabs) tablets,dose pack 5 mg PO ONCE Qty: 74 0RF melatonin 10 mg capsule 10 mg PO HS PRN
[2023-04-16 15:35] LABS: Abs Immature Grans 0.02 10^3/uL (0.0-0.06); Absolute Basophil Count 0.06 10^3/uL (0.0-0.2); Absolute Eosinophil Count 0.28 10^3/uL (0.0-0.7); Absolute Lymphocyte Count 1.92 10^3/uL (1.2-3.4); Absolute Monocyte Count 0.59 10^3/uL (0.1-0.8); Absolute Neutrophil Count 3.72 10^3/uL (1.2-6.7); Basophils % 0.9; Eosinophils % 4.2; HCT 44.6 % (36.0-46.0); HGB 14.9 g/dL (11.2-15.7); Immature Grans % 0.3; Lymphocytes % 29.1; MCH 30.2 pg (27.0-33.0); MCHC 33.4 % (32.0-36.0); MCV 91 fL (80-95); MPV 10.9 fL (8.0-11.0); Neutrophils % 56.5; Platelet Count 278 10^3/uL (130-400); RBC 4.93 10^6/uL (3.93-5.22); RDW 12.7 % (11.7-14.6); RDW-SD 41.9 fL; WBC 6.59 10^3/uL (4.4-10.8)
[2023-04-16 15:53] LABS: ALT 25 U/L (14-59); AST 12 U/L (15-37); Alkaline Phosphatase 66 U/L (46-116); Anion Gap 11.7 mmol/L (3-11); BUN 22 mg/dL (7-18); Bilirubin, Total 0.3 mg/dL (0.2-1.0); CO2 25.3 mmol/L (21.0-32.0); CREATININE 1.4 mg/dL (0.55-1.02); Calcium 9.2 mg/dL (8.5-10.1); Chloride 104 mmol/L (98-107); Estimated GFR 44.71 (mL/min/1.73m2); Glucose 97 mg/dL (74-106); Magnesium 2.4 mg/dL (1.8-2.4); Potassium 3.9 mmol/L (3.5-5.1); Sodium 141 mmol/L (136-145); Total Protein 7.7 g/dL (6.4-8.2)
[2023-04-16 16:02] LABS: Troponin I 589 ng/L (< or =60)
[2023-04-16 16:35] LABS: NT-proBNP 1121 pg/mL (<300)
[2023-04-16] MEDS: Normal Saline - Diluent 50 ML VIAL IJ (16:48)
[2023-04-16] MEDS: Omnipaque 350 MG/ML 100 ML BTL IJ (16:49)
--- NOTE | 2023-04-16 17:00 | RT.EKG_ITS ---
APPROVED REPORT Exam: Resting ECG Reason for Exam: elevated troponin Patient Location: E HR:58 bpm ECG Measurements Heart Rate 58 AXIS GA 191 P 21 QRSd 92 QRS 33 QT 520 T 63 QTc 513 Conclusion Sinus bradycardia...rate< 60 Left atrial enlargement...P, P'>60mS, <-0.15mV V1 Abnrm R prog, consider ASMI or lead placement...Q >30mS, diminished R, V1-V2 Prolonged QT interval...QTc >510mS
[2023-04-16 17:22] LABS: Source Nasal/Nares
--- NOTE | 2023-04-16 17:45 | RT.EKG_ITS ---
APPROVED REPORT Exam: Resting ECG Reason for Exam: jaw, shoulder neck pain Patient Location: E HR:63 bpm ECG Measurements Heart Rate 63 AXIS ID 193 P 24 QRSd 91 QRS 37 QT 486 T 33 QTc 498 Conclusion Sinus rhythm...normal P axis, V-rate 60- 99 Ventricular premature complex...V complex w/ short R-R interval Aberrant conduction of SV complex(es)...aberrant shape, ID [id number] depression, diffuse leads...ST <-0.03mV, ant/lat/inf
[2023-04-16 17:53] LABS: COVID-19 PCR Negative (Negative)
[2023-04-16] MEDS: Prochlorperazine 10 MG/2 ML VIAL 5 MG IVP (18:27)
[2023-04-16 19:01] LABS: Troponin I 533 ng/L (< or =60)
[2023-04-16] MEDS: Atorvastatin 40 MG TAB 80 MG PO (20:14)
[2023-04-16] MEDS: Aspirin 325 MG TAB PO (20:15)
[2023-04-16 20:49] LABS: Troponin I 569 ng/L (< or =60)
[2023-04-16] MEDS: Heparin in 0.45% NaCl 25,000 UNIT/250 ML BAG 10 UNIT IV (21:04)
== END 2023-04-16 22:04 | disposition short-term general hospital (02) ==
PROVIDERS: Emergency Provider Student in an Organized Health Care Education/Training Program; PCP Physician Assistant
DX: I21.4 Non-ST elevation (NSTEMI) myocardial infarction (principal); I31.39 Other pericardial effusion (noninflammatory); R91.8 Other nonspecific abnormal finding of lung field; I25.10 Atherosclerotic heart disease of native coronary artery without angina pectoris; I25.2 Old myocardial infarction; I48.91 Unspecified atrial fibrillation; Z11.52 Encounter for screening for COVID-19; Z79.01 Long term (current) use of anticoagulants; Z86.711 Personal history of pulmonary embolism
CPT/HCPCS: 36415; 71275; 80053; 87635; 93005; 96374; 99285; 83735; 83880; 84484; 85025; 93010; J0780; J1644; J3490

== ENCOUNTER 2023-06-14 07:48 | Inpatient (IN) | payer BC, SELFPAY ==
[2023-06-14] VITALS (125 sets, daily range): BP systolic 90–133; BP diastolic 40–79; PULSE 49–72; RESP 7–29; TEMP 36.6; O2SAT 86–100
--- NOTE | 2023-06-14 07:45 | RT.EKG_ITS ---
APPROVED REPORT Exam: Resting ECG Reason for Exam: nausea,heart related Patient Location: E HR:68 bpm ECG Measurements Heart Rate 68 AXIS [place] 197 P 31 QRSd 98 QRS 41 QT 533 T 20 QTc 567 Conclusion Sinus rhythm...normal P axis, V-rate 60- 99 Atrial premature complexes in couplets...pair SV complexes w/ short R-R Repol abnrm suggests ischemia, anterolateral...ST dep, T neg, I aVL V2-V6 Prolonged QT interval...QTc >510mS
--- NOTE | 2023-06-14 08:25 | ED.GENADUL_ITS ---
Discharge Plan Disposition Patient Disposition: Admit to [facility] Condition: Serious Discharge Details Clinical Impression: CATIE (acute kidney injury), Elevated troponin, Ground glass opacity present on imaging of lung, Acute non-ST elevation myocardial infarction (NSTEMI), Acute hypokalemia, Hypermagnesemia Primary Care Provider: Polo Pearce ED Provider: Stuart Iyer Home Meds and New Rx's Prescriptions: No Action ropinirole 1 mg tablet 1 mg PO BID Rx Instructions: @ 1600 and 2100 Nurtec ODT 75 mg tablet,disintegrating 75 mg PO ONCE PRN (Reason: migraine headache) Qty: 10 3RF Rx Instructions: As a single dose. No more than one dose in 24 hours. amlodipine 5 mg tablet 5 mg PO DAILY isosorbide mononitrate 30 mg tablet extended release 24 hr 30 mg PO DAILY atorvastatin 80 mg tablet 80 mg PO QPM empagliflozin 10 mg tablet 10 mg PO DAILY fluticasone propionate [Flonase Allergy Relief] 9.9 ML spray,suspension 2 spray NS DAILY duloxetine [Cymbalta] 60 mg capsule,delayed release(DR/EC) 60 mg PO DAILY Qty: 30 2RF albuterol sulfate 90 mcg/actuation HFA aerosol inhaler 2 puff inhalation Q4H PRN loratadine [Allergy Relief (loratadine)] 10 mg tablet 10 mg PO DAILY PRN nitroglycerin 0.4 mg tablet, sublingual 0.4 mg sublingual Q5M PRN Rx Instructions: do not exceed 3 doses per episode Aimovig Autoinjector 140 mg/mL auto-injector 140 mg subcut QMONTH Qty: 1 11RF Hold Instructions: On Hold montelukast 10 mg tablet 10 mg PO DAILY clobetasol 0.05 % ointment 1 applic topical DIRECTED omeprazole 20 mg capsule,delayed release(DR/EC) 20 mg PO DAILY PRN gabapentin 600 mg tablet 600 mg PO QHS Qty: 90 3RF topiramate [Topamax] 100 mg tablet 100 mg PO QHS Qty: 90 3RF apixaban 5 mg (74 tabs) tablets,dose pack 5 mg PO ONCE Qty: 74 0RF melatonin 10 mg capsule 10 mg PO HS PRN metolazone 2.5 mg tablet 2.5 mg PO DAILY HPI General Mode of arrival: ambulatory . Date/Time Provider Initiated Documentation: 06/14/23 07:55 . Limitations to Documentation: no limitations . Information obtained by: patient . HPI Narrative: 53-year-old female with history of multiple medical problems including CHF, bilateral renal artery stenosis, pulmonary emboli, now on apixaban, atypical chest pain, here with chief complaint of chest pain. Patient notes chest pain over the past 1 week, worse over the past 2 days. Pain is now constant. She has associated shortness of breath. She notes when she takes a deep breath this worsens the pain. Pain is localized to left lateral chest, anterior chest on the left and left back. She has associated nausea, diaphoresis, and lightheadedness. Of note, patient had a clean cardiac catheterization 1 month ago. No calf pain. She does note some intermittent bilateral feet swelling. Related Data Home Medications Medication Instructions Recorded Confirmed fluticasone propionate 50 2 spray NS DAILY 12/23/16 06/14/23 mcg/actuation nasal spray,suspension (Flonase Allergy Relief) ropinirole 1 mg tablet 1 mg PO BID 06/12/20 06/14/23 duloxetine 60 mg capsule,delayed 60 mg PO DAILY #30 mg 08/19/20 06/14/23 release (Cymbalta) albuterol sulfate 90 mcg/actuation 2 puff inhalation Q4H PRN 05/30/21 06/14/23 aerosol inhaler loratadine 10 mg tablet (Allergy 10 mg PO DAILY PRN 05/30/21 06/14/23 Relief (loratadine)) atorvastatin 80 mg tablet 80 mg PO QPM 06/10/21 06/14/23 empagliflozin 10 mg tablet 10 mg PO DAILY 06/10/21 06/14/23 nitroglycerin 0.4 mg sublingual 0.4 mg sublingual Q5M PRN 09/25/21 06/14/23 tablet apixaban 5 mg (74 tabs) tablets in 5 mg PO ONCE #74 dose pk 07/28/22 06/14/23 a dose pack erenumab-aooe 140 mg/mL 140 mg subcut QMONTH #1 mL 07/28/22 06/14/23 subcutaneous auto-injector (Aimovig Autoinjector) rimegepant 75 mg disintegrating 75 mg PO ONCE PRN migraine 08/25/22 06/14/23 tablet (Nurtec ODT) headache #10 tabs montelukast 10 mg tablet 10 mg PO DAILY 08/27/22 06/14/23 clobetasol 0.05 % topical ointment 1 applic topical DIRECTED 08/28/22 06/14/23 omeprazole 20 mg capsule,delayed 20 mg PO DAILY PRN 08/28/22 06/14/23 release amlodipine 5 mg tablet 5 mg PO DAILY 10/06/22 06/14/23 isosorbide mononitrate 30 mg 30 mg PO DAILY 10/06/22 06/14/23 tablet,extended release 24 hr gabapentin 600 mg tablet 600 mg PO QHS #90 tabs 01/04/23 06/14/23 topiramate 100 mg tablet (Topamax) 100 mg PO QHS #90 tab-caps 01/18/23 06/14/23 melatonin 10 mg capsule 10 mg PO HS PRN 04/16/23 04/16/23 metolazone 2.5 mg tablet 2.5 mg PO DAILY 06/14/23 06/14/23 Previous Rx's Medication Instructions Recorded duloxetine 60 mg capsule,delayed 60 mg PO DAILY #30 mg 08/19/20 release (Cymbalta) apixaban 5 mg (74 tabs) tablets in 5 mg PO ONCE #74 dose pk 07/28/22 a dose pack erenumab-aooe 140 mg/mL 140 mg subcut QMONTH #1 mL 07/28/22 subcutaneous auto-injector (Aimovig Autoinjector) rimegepant 75 mg disintegrating 75 mg PO ONCE PRN migraine 08/25/22 [facility] headache #10 tabs gabapentin 600 mg tablet 600 mg PO QHS #90 tabs 01/04/23 topiramate 100 mg tablet (Topamax) 100 mg PO QHS #90 tab-caps 01/18/23 Allergies Allergy/AdvReac Type Severity Reaction Status Date / Time acetaminophen [From Tylenol] AdvReac Intermediate Other (See Unverified 06/14/23 08:55 Comment) clobetasol AdvReac Intermediate Skin Rash Verified 06/14/23 08:55 codeine AdvReac Mild Other (See Verified 06/14/23 08:55 Comment) ibuprofen AdvReac Other (See Unverified 06/14/23 08:55 Comment) environmental Allergy Mild Other (See Uncoded 06/14/23 08:55 Comment) General Stated Complaint: Chest Pain MIKAELA: 2 Review of Systems All systems reviewed & are unremarkable except as noted in HPI and below Constitutional Constitutional: Denies fever(s) Cardiovascular Cardiovascular: Reports as per HPI and Reports chest pain Gastrointestinal Gastrointestinal: Reports nausea and Denies vomiting Exam Const General: cooperative and no acute distress HENCO Head: normocephalic Mouth: moist mucous membranes Eyes Conjunctivae: normal conjunctivae Sclera: normal sclerae Neck Neck: trachea midline and supple Resp Auscultation: clear to auscultation bilaterally, no rales, no rhonchi and no wheezes Cardio Rate: regular rate and not tachycardic Rhythm: regular rhythm GI Palpation: soft, not firm, no guarding, no masses, not rigid and nontender Skin General skin exam: no rashes or lesions noted Neuro General: patient alert, patient awake and tone normal Extrem General: no calf tenderness and no edema Psych Appearance: grossly normal Mental Status: mental status grossly normal Course Vital Signs Vital signs: Vital Signs Temperature 36.6 C 06/14/23 07:50 Pulse 63 06/14/23 07:50 Respiratory Rate 16 06/14/23 07:50 Blood Pressure 128/75 06/14/23 07:50 Pulse Oximetry 99 06/14/23 07:50 Temperature 36.6 C 06/14/23 07:50 Temperature Source Tympanic 06/14/23 07:50 Pulse 63 06/14/23 07:50 Respiratory Rate 16 06/14/23 08:05 Respiratory Effort Normal, Non-Labored 06/14/23 08:05 Respiratory Depth Normal 06/14/23 08:05 Respiratory Pattern Normal 06/14/23 08:05 Blood Pressure 128/75 06/14/23 07:50 Blood Pressure Position Sitting 06/14/23 07:50 Pulse Oximetry 99 06/14/23 07:50 Oxygen Delivery Method Room Air 06/14/23 07:50 Oxygen Flow Rate 0 06/14/23 07:50 Pain Level 7 06/14/23 08:05 Medical Decision Making 834 --53-year-old female with multiple medical problems including history of atypical chest pain with clean catheterization approximately 1 month ago, pulmonary embolism, now on apixaban, here with pleuritic left-sided chest discomfort in the past 1 week that is been worse over the past 2 days with associated nausea, diaphoresis and lightheadedness. EKG was reviewed and interpreted by me: Sinus rhythm 68 bpm, atrial premature complexes couplets, anterior lateral ST depressions (these were present on prior EKG), prolonged QT interval of 567. Unlikely ACS given recent catheterization. Will check troponin. Consider acute pulmonary embolism. Plan to obtain CTA of the chest. --Initial labs reviewed and troponin is elevated. Her troponin has been elevated in the past although current elevation is higher than previous. BNP elevated. Hypermag and severe hypokalemia noted. Will give potassium replacement. CATIE noted. Plan to initiate treatment with nitroglycerin infusion. 954 --patient did recently have a severe sudden sharp chest pain episode that was brief. Will repeat EKG. Plan to proceed to CTA of the chest. Patient provided informed consent given GFR. --CTA was interpreted by radiology:1. No evidence of acute pulmonary emboli. No evidence of pulmonary infarction. However, there is again noted diffuse bilateral symmetrical ground-glass markings throughout both lung teran. Predominately involving all segments of both lower lobes. Milder involvement of the upper lobes and right middle lobe. 2. No intrathoracic adenopathy. No pleural effusions. Will start heparin infusion. Patient reassessed and feels nitroglycerin is helping pain. Maintaining low dose given blood pressure. 1200 -- I contacted [facility] transfer center to request transfer and received call back from nurse practitioner Sarah jones. Discussed ED presentation and course including diagnostics. She will accept the patient in transfer on behalf of Dr. Mesa. Unfortunately no beds immediately available at transfer center notes no bed available until tomorrow. Plan to hospitalize here until able to transfer. 1345 -- I spoke with Dr. Ball, discussed ED presentation course including diagnostics, he will admit the patient. ICU bed not immediately available. Lab Data Lab results reviewed: Yes I reviewed the patient's lab results. Labs: Laboratory Tests Range/Units 06/14/23 06/14/23 06/14/23 08:30 08:30 10:50 WBC (4.4-10.8) 10^3/uL 8.08 RBC (3.93-5.22) 10^6/uL 5.76 H Hgb (11.2-15.7) g/dL 17.9 H Hct (36.0-46.0) % 49.9 H MCV (80-95) fL 87 MCH (27.0-33.0) pg 31.1 MCHC (32.0-36.0) % 35.9 RDW (11.7-14.6) % 12.9 Plt Count (130-400) 10^3/uL 345 MPV (8.0-11.0) fL 10.6 Immature Gran % 0.1 Neutrophils % 62.2 Lymphocytes % 22.0 Monocytes % 12.4 Eosinophils % 2.7 Basophils % 0.6 Nucleated RBC % (0.0-0.3) % 0.0 Absolute Neutrophils (1.2-6.7) 10^3/uL 5.02 Absolute Lymphocytes (1.2-3.4) 10^3/uL 1.78 Absolute Monocytes (0.1-0.8) 10^3/uL 1.00 H Absolute Eosinophils (0.0-0.7) 10^3/uL 0.22 Absolute Basophils (0.0-0.2) 10^3/uL 0.05 PT (9.1-11.1) sec 11.0 INR (0.9-1.1) 1.1 APTT (23.6-32.8) sec 32.7 Sodium (136-145) mmol/L 134 L Potassium (3.5-5.1) mmol/L 2.2 L* Chloride (98-107) mmol/L 88 L Carbon Dioxide (21.0-32.0) mmol/L 32.9 H Anion Gap (3-11) mmol/L 13.1 H BUN (7-18) mg/dL 39 H Creatinine (0.55-1.02) mg/dL 2.1 H Est GFR (CKD-EPI 2020) (mL/min/1.73m2) 27.48 Glucose (74-106) mg/dL 132 H Calcium (8.5-10.1) mg/dL 9.7 Magnesium (1.8-2.4) mg/dL 2.9 H Total Bilirubin (0.2-1.0) mg/dL 0.7 AST (15-37) U/L 39 H ALT (14-59) U/L 41 Alkaline Phosphatase (46-116) U/L 89 Troponin I (< or =60) ng/L 886 H* 788 H* NT-Pro-B Natriuret Pep (<300) pg/mL 3815 H Cancelled Total Protein (6.4-8.2) g/dL 9.5 H Albumin (3.4-5.0) g/dL 4.6 Quality:SDOH Health Related Social Needs: No Data to Display PFSH All Active Problems (Updated 06/14/23 @ 13:49 by Stuart Iyer MD) Hypermagnesemia (Acute) Acute hypokalemia (Acute) Acute non-ST elevation myocardial infarction (NSTEMI) (Acute) Ground glass opacity present on imaging of lung (Acute) Elevated troponin (Acute) CATIE (acute kidney injury) (Acute) Restrictive lung disease secondary to obesity (Acute) Allergic asthma (Acute) intermittent, controlled Dyspnea (Acute) Diarrhea (Acute) Congestive heart failure (Chronic) Sick euthyroidism (Acute) Carpal tunnel syndrome (Acute) GERD (gastroesophageal reflux disease) (Chronic) Bilateral renal artery stenosis (Acute) Encounter for weight loss counseling (Acute) Pulmonary emboli (Acute) Arthritis of carpometacarpal (CMC) joint of left thumb (Acute) Avulsion fracture of right talus (Acute 12/30/21) Bilateral carpal tunnel syndrome (Acute) Paresthesia of hand, bilateral (Acute) Abnormal chest CT (Acute) Pulmonary hypertension (Acute) Atypical chest pain (Acute) PSVT (paroxysmal supraventricular tachycardia) (Acute) Acute non-ST elevation myocardial infarction (NSTEMI) (Acute) Elevated troponin I level (Acute) Right upper quadrant abdominal pain (Acute) Chronic heart failure with preserved ejection fraction (Chronic) Restless legs syndrome (Acute) Rhinitis, nonallergic, chronic (Acute) Tendinitis (Acute) Chest pain (Acute) Migraine headache without aura (Acute) Lichen sclerosus (Acute) MARYLOU (obstructive sleep apnea) (Chronic) Migraine with aura and without status migrainosus, not intractable (Acute 02/24/16) Medical History Hx of supraventricular tachycardia Infiltrate of lower lobe of left lung present on imaging study Acute non-ST elevation myocardial infarction (NSTEMI) COVID-19 Left lateral epicondylitis Arthritis of carpometacarpal (CMC) joint of left thumb Left wrist pain CHI (closed head injury) Acute bronchitis Non-ST elevation OR (NSTEMI) Insomnia Asthma Migraine Overweight Endometriosis Depression Surgical History Hx of tubal ligation History of partial hysterectomy Family History Daughter Migraines Mother Hypertension Father Heart disease Social History Smoking/Tobacco Use Status: Never Smoking risk assessment performed?: Yes Alcohol Intake: never Drug use: Never Substance use type: does not use Housing: house Current gender identity: female Do you feel safe at home: Yes Do you feel safe in your relationship?: Yes Female Reproductive History Menstrual Menopause type: surgical History History 2 Para 2 Hx # Term Pregnancies Multiple births Hx # Pregnancies Ectopic pregnancies AB induced Hx Number of Living Children AB spontaneous POCUS Exam (ED) Limited Cardiac Exam DATE OF EXAM: 06/14/23 TIME OF EXAM: 09:00 PROVIDER THAT PERFORMED THE STUDY: Stuart Iyer IS THIS A REPEAT EXAM DURING THIS ENCOUNTER: no REASON FOR EXAM: Chest pain VISUALIZED STRUCTURES: Left atrium, Left ventricle, LVOT and Right ventricle VIEW OBTAINED: Parasternal long-axis PERTINENT FINDINGS/IMPRESSION: No apparent abnormalities; No pericardial effusion Exam complete
[2023-06-14 08:36] LABS: Abs Immature Grans 0.01 10^3/uL (0.0-0.06); Absolute Basophil Count 0.05 10^3/uL (0.0-0.2); Absolute Eosinophil Count 0.22 10^3/uL (0.0-0.7); Absolute Lymphocyte Count 1.78 10^3/uL (1.2-3.4); Absolute Neutrophil Count 5.02 10^3/uL (1.2-6.7); Basophils % 0.6; Eosinophils % 2.7; HCT 49.9 % (36.0-46.0); HGB 17.9 g/dL (11.2-15.7); Immature Grans % 0.1; MCH 31.1 pg (27.0-33.0); MCHC 35.9 % (32.0-36.0); MCV 87 fL (80-95); MPV 10.6 fL (8.0-11.0); Monocytes % 12.4; Neutrophils % 62.2; Platelet Count 345 10^3/uL (130-400); RBC 5.76 10^6/uL (3.93-5.22); RDW 12.9 % (11.7-14.6); RDW-SD 40.4 fL; WBC 8.08 10^3/uL (4.4-10.8)
[2023-06-14] MEDS: Ondansetron 4 MG/2 ML VIAL IVP (08:37)
[2023-06-14 08:54] LABS: INR 1.1 (0.9-1.1); PTT Activated 32.7 sec (23.6-32.8)
[2023-06-14 09:01] LABS: ALT 41 U/L (14-59); AST 39 U/L (15-37); Albumin 4.6 g/dL (3.4-5.0); Alkaline Phosphatase 89 U/L (46-116); Anion Gap 13.1 mmol/L (3-11); BUN 39 mg/dL (7-18); Bilirubin, Total 0.7 mg/dL (0.2-1.0); CO2 32.9 mmol/L (21.0-32.0); CREATININE 2.1 mg/dL (0.55-1.02); Calcium 9.7 mg/dL (8.5-10.1); Chloride 88 mmol/L (98-107); Estimated GFR 27.48 (mL/min/1.73m2); Glucose 132 mg/dL (74-106); Magnesium 2.9 mg/dL (1.8-2.4); NT-proBNP 3815 pg/mL (<300); Sodium 134 mmol/L (136-145); Total Protein 9.5 g/dL (6.4-8.2)
[2023-06-14 09:02] LABS: Potassium 2.2 mmol/L (3.5-5.1)
[2023-06-14 09:03] LABS: Troponin I 886 ng/L (< or =60)
[2023-06-14] MEDS: POTASSIUM CHLORIDE 20 MEQ/100 ML BAG 50 MEQ IVINF (09:15)
[2023-06-14] MEDS: Potassium Chloride 20 MEQ TABCR PO (09:18)
[2023-06-14] MEDS: nitroGLYcerin in D5W 50 MG/250 ML BTL IV (09:30)
--- NOTE | 2023-06-14 09:42 | NUR.NOTE ---
Nitro started at 10mcg/min with great effect. Pt states pain has decreased from a 5 to a 3 with in 2-3 minutes.Nursing Note:
--- NOTE | 2023-06-14 09:45 | RT.EKG_ITS ---
APPROVED REPORT Exam: Resting ECG Reason for Exam: chest pain Patient Location: E HR:61 bpm ECG Measurements Heart Rate 61 AXIS NJ 198 P -2 QRSd 101 QRS 31 QT 534 T 3 QTc 514 Conclusion Sinus bradycardia...rate< 60 Repol abnrm suggests ischemia, inferior leads...ST dep, T neg, II III aVF Prolonged QT interval...QTc >510mS
[2023-06-14] MEDS: Omnipaque 350 MG/ML 100 ML BTL IJ (10:07)
--- NOTE | 2023-06-14 10:35 | DI.CT_ITS ---
Exam(s) CT CHEST PE CTA EXAM: CT CHEST PE CTA CLINICAL HISTORY: left chest pain, pleuritic. TECHNIQUE: Imaging Protocol: CT angiography of the chest was performed using pulmonary embolus franco col. Multi planar reconstructions were performed. CONTRAST MATERIAL: Intravenous: Omnipaque 350 Contrast volume: 100 cc COMPARISON: CT CT CHEST PE CTA from 04/16/2023 FINDINGS: CHEST: PULMONARY ARTERIES: There are no intraluminal filling defects to suggest acute pulmonary emboli.No ev idence of pulmonary infarction. LUNGS: Again noted are diffuse bilateral ground-glass infiltrates, most prominent in all segments of both lower lobes. No associated pleural effusions. No distinct ominous pulmonary nodules. Trachea and mainstem bronchi appear unremarkable.. MEDIASTINUM: There is no hilar nor mediastinal adenopathy. Visualized thyroid unremarkable.No supracl avicular nor axillary adenopathy evident. CARDIAC: Mild cardiomegaly again noted. No evidence of pericardial effusion. Caliber of the thoraci c aorta is within normal limits. No evidence of aortic dissection. There is no significant shift of the interventricular septum. PARTIALLY VISUALIZED UPPERMOST ABDOMEN: No adrenal masses. OSSEOUS: No significant osseous lesions.Fractures.. IMPRESSION: 1. No evidence of acute pulmonary emboli. No evidence of pulmonary infarction. However, there is ag ain noted diffuse bilateral symmetrical ground-glass markings throughout both lung teran. Predomina tely involving all segments of both lower lobes. Milder involvement of the upper lobes and right mid dle lobe. 2. No intrathoracic adenopathy. No pleural effusions. RADIATION DOSE DELIVERED: Total DLP DATA REPOSITORY: All CT scans at this facility are submitted to the National Radiology Data Registry (NRDR) Dose Index Registry (DIR) with the [employer] (ACR). RADIATION OPTIMIZATION: All CT scans at this facility use at least one of these dose optimization te chniques: automated exposure control; mA and/or kV adjustment per patient size (includes targeted exa ms where dose is matched to clinical indication); or iterative reconstruction.
[2023-06-14 11:33] LABS: Troponin I 788 ng/L (< or =60)
[2023-06-14] MEDS: Heparin in 0.45% NaCl 25,000 UNIT/250 ML BAG 10 UNIT IV (11:37)
[2023-06-14] MEDS: Aspirin 325 MG TAB PO (12:07)
--- NOTE | 2023-06-14 12:33 | NUR.NOTE ---
Checked in on Pt, resting comfortably, no complaints.Nursing Note:
--- NOTE | 2023-06-14 12:45 | DI.US_ITS ---
APPROVED REPORT EXAM: Comprehensive 2D, Doppler, and color-flow Echocardiogram Patient Location: ER Room/Bed: 3 General Administrator: Nick Corrigan RDCS (AE) Indications: Chest pain Conclusion Normal left ventricular wall thickness and chamber size. Ejection fraction is 60%. Equivocal small a nteroapical wall motion abnormality Normal right ventricular size and function Both atria are normal in size There is no structural or hemodynamically significant valvular disease Wall motion Left Ventricle The left ventricle is normal size. The left ventricular systolic function is normal. The left ventric ular ejection fraction is within the normal range. There is normal left ventricular wall thickness. T here is no ventricular septal defect visualized. LVEF is 60%. Right Ventricle The right ventricle is normal size. The right ventricular systolic function is normal. Atria The left atrium size is normal. The right atrium size is normal. The interatrial septum is intact wit h no evidence for an atrial septal defect. Aortic Valve The aortic valve is normal in structure. Aortic valve is trileaflet. There is no aortic valvular sten osis. No aortic regurgitation is present. Mitral Valve The mitral valve is normal in structure. No evidence of mitral valve stenosis. There is no mitral liane ve regurgitation noted. Tricuspid Valve The tricuspid valve is normal in structure. There is no tricuspid valve stenosis. Trace tricuspid reg urgitation. Pulmonic Valve The pulmonary valve is normal in structure. There is no pulmonic valvular stenosis. There is no pulmo neal valvular regurgitation. Great Vessels The aortic root is normal in size. The ascending aorta is normal in size. Aortic arch is not well vis ualized. IVC is normal in size and collapses >50% with inspiration. Pericardium There is no pericardial effusion. 2D Dimensions IVSD d PLAX 0.78 cm F: 0.6-1.0 Ao Root d 2.36 cm F: 2.7 - 3.3 LVPW d PLAX 0.79 cm F: 0.6 - 1.0 Ao Asc Diam d 2.43 cm F: 2.3 - 3.1 LVID d PLAX 4.62 cm F: 3.8 - 5.2 LVDs 3.04 cm F: 2.2 - 3.5 LV EF Teichholz 63.2 % FS 34.18 % LV EDV (Teich) 98.5 mL LV ESV (Teich) 36.2 mL Stroke Vol Index (Teich) 30.66 Auto EF LV EDV A4C 89.5 mL LV EDV A2C 113.7 mL LV EDV BP 100.9 mL LV ESV A4C 35.4 mL LV ESV A2C 45.6 mL LV ESV BP 40.5 mL LVEF(%) A4C 60.5 % LVEF(%) A2C 59.8 % LVEF(%) BP 59.9 % LV SV A4C 54.2 ml LV SV A2C 68.0 ml LV SV BP 60.4 ml LV CO A4C 2.7 L/min LV CO A2C 3.9 L/min LV CO BP 3.3 L/min HR A4C 49.93 BPM HR A2C 57.88 BPM LV EDV Index (BP) LA Volume LA Length A4C 5.4 cm LA Length A2C 5.7 cm LA Area A4C s 15.04 cm2 LA Area A2C s 18.73 cm2 LA Vol A4C A-L 35.62 mL LA Vol A2C A-L 52.53 mL LA Vol Biplane A-L 44.4 mL LA Vol/BSA A4C A-L LA Vol/BSA A2C A-L LA Vol/BSA BP A-L 21.8 mL/m2 LA Vol A4C MOD 34.4 mL LA Vol A2C MOD 50.4 mL LA Vol BP MOD 42.4 mL RA Volume RA Area A4C 10.5 cm2 RA ESV A4C (A-L) 20.2mL RA Vol/BSA A4C A-L RA Length A4C 4.6 cm RA ESV A4C (MOD) 19.1mL LV Diastology MV E Vmax 0.28 (0.4-1.3 m/s) MV A Vmax 0.55 (0.4-1.3 m/s) E/A Ratio 0.5 Aortic Valve AoV Vmax 1.43 m/s LVOT Vmax 0.97 m/s AoV Peak Grad 8.2 mmHg LVOT Peak Grad 3.8 mmHg AoV Area (Vmax) 1.51 cm2 LVOT VTI 0.197 m AoV VTI 0.268 m LVOT Mean Grad 2.0 mmHg AoV Mean Ilir. 0.85 m/s LVOT SV 43.87 mL AoV Mean Grad 3.6 mmHg LVOT Diam s 1.65 cm AoV Area (VTI) 1.64 cm2 Velocity Ratio 0.68 Mitral Valve MV DT 233 (160-240 msec) Pulmonary Valve PV Vmax 1.36 (0.5-1.5 m/s) RVOT Vmax 0.84 m/s PV Peak Grad 7.4 mmHg RVOT Peak Gr. 2.9 mmHg PV Mean Ilir 0.85 m/s RVOT VTI 0.164 m PV Mean Grad 3.6 mmHg RVOT Mean Gr. 1.6 mmHg Tricuspid Valve RA Pressure 3.00 mmHg TR Vmax 1.10 m/s TR Peak Grad 4.7 mmHg RVSP (TR) 7.8 mmHg
[2023-06-14] MEDS: Lactated Ringers 500 ML 1000 ML IV (14:01)
[2023-06-14 16:05] LABS: Source Nasal/Nares
[2023-06-14 16:36] LABS: COVID-19 PCR Negative (Negative)
--- NOTE | 2023-06-14 16:46 | W.PM.HP.N ---
Date of service: 06/14/23 Time of Service: 16:46 Assessment and Plan Assessment and plan (1) Acute non-ST elevation myocardial infarction (NSTEMI): Status: Suspected Assessment and plan: 53 yr old female w/ hx of PSVT s/p ablation earlier this year also w/ hx of prior NSTEMI but found to have non-hemodynamically significant CAD after cardica cath in the past couple months. now presented w/ 6 day hx of intermittent chest pain and pressure sometime associated w/ position (lying worse than sitting up) and sometime associated w/ deep breathing but symptoms became progressive over past 24 to 48 hours and she presented w/ new inferolateral ST-T depression and elevated troponin I of 800 whihc has now declined to 700. CP has been relieved w/ NTG and she is now on NTG drip. She has been on apixaban for prior PE (found nearly one year ago). CTA ruled her out for PE today and she was put on heparin drip per advice of [facility] cards, she has been accepted for transfer to [facility] to Dr. Kinsey service once a bed becomes available. (2) Elevated troponin: Status: Acute Assessment and plan: ddx: myocarditis; myoepicarditis, NSTEMI, demand ischemia (3) Ground glass opacity present on imaging of lung: Status: Acute Assessment and plan: question of whether or not this was sequelae of her prior COVID infections. may be a contributing factor to her dyspnea. (4) Acute hypokalemia: Status: Acute Assessment and plan: likely secondary to metolazone; will correct w/ po and iv replacments. (5) CATIE (acute kidney injury): Status: Acute Assessment and plan: acute on chronic renal failure; likely prerenal from her metolazone (6) Chronic kidney disease, stage III (moderate): Status: Acute Assessment and plan: likely d/t HTN and MARY ANNE Qualifiers: Chronic kidney disease stage 3 subtype: unspecified whether 3a or 3b Qualified Code(s): N18.30 - Chronic kidney disease, stage 3 unspecified (7) Pulmonary emboli: Status: Chronic Assessment and plan: no new acute P.E.; now on heparin in anticipation of cardiac cath. Qualifiers: Acute cor pulmonale presence: without acute cor pulmonale Chronicity: chronic Pulmonary embolism type: other Qualified Code(s): I27.82 - Chronic pulmonary embolism (8) Chronic heart failure with preserved ejection fraction: Status: Chronic Assessment and plan: does not appear to be in acute CHF. (9) Chest pain: Status: Acute Assessment and plan: ddx as outlined above Qualifiers: Chest pain type: chest pain on breathing Qualified Code(s): R07.1 - Chest pain on breathing History of Present Illness History of Present Illness Chief Complaint: chest pain, dyspnea Narrative: 53 yr old female non-smoker presents w/ intermittent chest pain/pressure and increasing dyspnea since last Wednesday (6 days ago). Patient states the her chest pains initially were worse at night and with lying down associated w/ feelings of being unable to catch her breath. As her symptoms worsened over the week and last night got to the point where she was unable to lie down at night, she presented today to the emergency room. She had similar complaints in April when she was worked up for a similar episode in April 16 2023 in which she had elevation of her troponin I into the 500's and was transferred to [facility] cardiology, Dr. Gallegos. She had cardiac cath that did not show any hemodynamically obstructive disease. Prior to that episode she was treated for atrial fibrillation w/ cardiac ablation. She has been chronically on Apixaban for prior PE of RUL 07/27/22. She has had couple prior episoded of COVID-19 and has had ground glass pulmonary densities since. Today she was evaluated w/ CTA chest (negative for any new P..E. but has persistent GGO in both lungs), labs c/w NSTEMI w/ troponin I of 886 which has been declining since her workup in the ED (now down to 712). EKG with inferolateral ST-T depression (II, III, F and V4-V6), her CP has been relieved w/ Ntg drip. Other pertinent labs include low K+ of 2.2 (patient has been on metazolone for HFPEF). She was given supplemental potassium 20 meq PO and 20 meq IV while in the ED. Dr. Iyer spoke w/ [facility] cardiology, A.P.P. who accepted the patient for transfer to [facility] to Dr. Kinsey. However d/t lack of bed capacity today, patient was boarded in our E.D. pending transfer. She will be admitted to ICU when a bed becomes available at [facility]. Patient is currently chest pain free and troponin I has levels off at 712. Echo was done today, report is pending but per my review shows no RWMA and w/ normal LV systolic function. Patient was begun on systemic heparin in lieu of her apixaban per cardiology recommendation (I assume in attempt to bridge her while she undergoes follow up cath). Review of Systems All systems reviewed & are unremarkable except as noted in HPI and below PFSH All Active Problems (Updated 06/14/23 @ 22:50 by Edwin Ball MD) Chronic kidney disease, stage III (moderate) (Acute) Hypokalemia (Acute) Hypermagnesemia (Acute) Acute hypokalemia (Acute) Ground glass opacity present on imaging of lung (Acute) Elevated troponin (Acute) CATIE (acute kidney injury) (Acute) Restrictive lung disease secondary to obesity (Acute) Allergic asthma (Acute) intermittent, controlled Dyspnea (Acute) Diarrhea (Acute) Congestive heart failure (Chronic) Sick euthyroidism (Acute) Carpal tunnel syndrome (Acute) GERD (gastroesophageal reflux disease) (Chronic) Bilateral renal artery stenosis (Acute) Encounter for weight loss counseling (Acute) Pulmonary emboli (Chronic) Arthritis of carpometacarpal (CMC) joint of left thumb (Acute) Avulsion fracture of right talus (Acute 12/30/21) Bilateral carpal tunnel syndrome (Acute) Paresthesia of hand, bilateral (Acute) Abnormal chest CT (Acute) Pulmonary hypertension (Acute) Atypical chest pain (Acute) PSVT (paroxysmal supraventricular tachycardia) (Acute) Acute non-ST elevation myocardial infarction (NSTEMI) (Acute) Elevated troponin I level (Acute) Right upper quadrant abdominal pain (Acute) Chronic heart failure with preserved ejection fraction (Chronic) Restless legs syndrome (Acute) Rhinitis, nonallergic, chronic (Acute) Tendinitis (Acute) Chest pain (Acute) Migraine headache without aura (Acute) Lichen sclerosus (Acute) MARYLOU (obstructive sleep apnea) (Chronic) Migraine with aura and without status migrainosus, not intractable (Acute 02/24/16) Medical History (Updated 06/14/23 @ 22:50 by Edwin Ball MD) Superior mesenteric artery stenosis (~03/10/22) see CTA abdomen and pelivs: 80% narrowing of SMA origin Renal artery stenosis (~03/10/22) right renal artery stenosis per CTA abomen/pelvis Hx of supraventricular tachycardia Infiltrate of lower lobe of left lung present on imaging study Acute non-ST elevation myocardial infarction (NSTEMI) COVID-19 Left lateral epicondylitis Arthritis of carpometacarpal (CMC) joint of left thumb Left wrist pain CHI (closed head injury) Acute bronchitis Non-ST elevation [place] (NSTEMI) Insomnia Asthma Migraine Overweight Endometriosis Depression Surgical History (Updated 06/14/23 @ 22:27 by Edwin Ball MD) History of radiofrequency ablation (RFA) procedure for cardiac arrhythmia Hx of tubal ligation History of partial hysterectomy Family History Daughter Migraines Mother Hypertension Father Heart disease Social History Smoking/Tobacco Use Status: Never Smoking risk assessment performed?: Yes Alcohol Intake: never Drug use: Never Substance use type: does not use Housing: house Current gender identity: female Do you feel safe at home: Yes Do you feel safe in your relationship?: Yes Female Reproductive History Menstrual Menopause type: surgical History History 2 Para 2 Hx # Term Pregnancies Multiple births Hx # Pregnancies Ectopic pregnancies AB induced Hx Number of Living Children AB spontaneous Meds Allergies and Home Medications Allergies Allergy/AdvReac Type Severity Reaction Status Date / Time acetaminophen [From Tylenol] AdvReac Intermediate Other (See Unverified 06/14/23 08:55 Comment) clobetasol AdvReac Intermediate Skin Rash Verified 06/14/23 08:55 codeine AdvReac Mild Other (See Verified 06/14/23 08:55 Comment) ibuprofen AdvReac Other (See Unverified 06/14/23 08:55 Comment) environmental Allergy Mild Other (See Uncoded 06/14/23 08:55 Comment) Home Medications Medication Instructions Recorded Confirmed Type fluticasone propionate 50 2 spray NS DAILY 12/23/16 06/14/23 History mcg/actuation nasal spray,suspension (Flonase Allergy Relief) ropinirole 1 mg tablet 1 mg PO BID 06/12/20 06/14/23 History duloxetine 60 mg capsule,delayed 60 mg PO DAILY #30 mg 08/19/20 06/14/23 Rx release (Cymbalta) albuterol sulfate 90 mcg/actuation 2 puff inhalation Q4H PRN 05/30/21 06/14/23 History aerosol inhaler loratadine 10 mg tablet (Allergy 10 mg PO DAILY PRN 05/30/21 06/14/23 History Relief (loratadine)) atorvastatin 80 mg tablet 80 mg PO QPM 06/10/21 06/14/23 History empagliflozin 10 mg tablet 10 mg PO DAILY 06/10/21 06/14/23 History nitroglycerin 0.4 mg sublingual 0.4 mg sublingual Q5M PRN 09/25/21 06/14/23 History tablet apixaban 5 mg (74 tabs) tablets in 5 mg PO ONCE #74 dose pk 07/28/22 06/14/23 Rx a dose pack erenumab-aooe 140 mg/mL 140 mg subcut QMONTH #1 mL 07/28/22 06/14/23 Rx subcutaneous auto-injector (Aimovig Autoinjector) rimegepant 75 mg disintegrating 75 mg PO ONCE PRN migraine 08/25/22 06/14/23 Rx tablet (Nurtec ODT) headache #10 tabs montelukast 10 mg tablet 10 mg PO DAILY 08/27/22 06/14/23 History clobetasol 0.05 % topical ointment 1 applic topical DIRECTED 08/28/22 06/14/23 History omeprazole 20 mg capsule,delayed 20 mg PO DAILY PRN 08/28/22 06/14/23 History release amlodipine 5 mg tablet 5 mg PO DAILY 10/06/22 06/14/23 History isosorbide mononitrate 30 mg 30 mg PO DAILY 10/06/22 06/14/23 History tablet,extended release 24 hr gabapentin 600 mg tablet 600 mg PO QHS #90 tabs 01/04/23 06/14/23 Rx topiramate 100 mg tablet (Topamax) 100 mg PO QHS #90 tab-caps 01/18/23 06/14/23 Rx melatonin 10 mg capsule 10 mg PO HS PRN 04/16/23 06/14/23 History metolazone 2.5 mg tablet 2.5 mg PO DAILY 06/14/23 06/14/23 History Exam Narrative Exam Narrative: Middle age white female lying on ER gueney currently pain free, does not appear to be in any acute respiratory distress, alert and oriented HEENT: urnremarkable Neck: no JVD, thryomegaly, normal carotid pulses Lungs: some bibasilar fine rales; no rhonchi or wheezing Heart: RRR, no m,r, g Abdomen: obese, soft, no bruits or organomegaly Extremities: no C/C/E Neuro: grossly intact w/ no focal CN or motor deficits. Results Imaging CT scan - chest: report reviewed EKG: image reviewed Imaging Studies: Echocardiogram images reviewed by myself, international exchange coordinator interpretation is pending Labs 06/14/23 08:30 06/14/23 18:05 Labs: Laboratory Results - last 24 hr 06/14/23 06/14/23 06/14/23 08:30 08:30 10:50 WBC 8.08 RBC 5.76 H Hgb 17.9 H Hct 49.9 H MCV 87 MCH 31.1 MCHC 35.9 RDW 12.9 Plt Count 345 MPV 10.6 Immature Gran % 0.1 Neutrophils % 62.2 Lymphocytes % 22.0 Monocytes % 12.4 Eosinophils % 2.7 Basophils % 0.6 Nucleated RBC % 0.0 Absolute Neutrophils 5.02 Absolute Lymphocytes 1.78 Absolute Monocytes 1.00 H Absolute Eosinophils 0.22 Absolute Basophils 0.05 PT 11.0 INR 1.1 APTT 32.7 Sodium 134 L Potassium 2.2 L* Chloride 88 L Carbon Dioxide 32.9 H Anion Gap 13.1 H BUN 39 H Creatinine 2.1 H Est GFR (CKD-EPI 2020) 27.48 Glucose 132 H Calcium 9.7 Magnesium 2.9 H Total Bilirubin 0.7 AST 39 H ALT 41 Alkaline Phosphatase 89 Troponin I 886 H* 788 H* NT-Pro-B Natriuret Pep 3815 H Cancelled Total Protein 9.5 H Albumin 4.6 COVID-19 Source SARS-CoV-2 (PCR) 06/14/23 16:01 WBC RBC Hgb Hct MCV MCH MCHC RDW Plt Count MPV Immature Gran % Neutrophils % Lymphocytes % Monocytes % Eosinophils % Basophils % Nucleated RBC % Absolute Neutrophils Absolute Lymphocytes Absolute Monocytes Absolute Eosinophils Absolute Basophils PT INR APTT Sodium Potassium Chloride Carbon Dioxide Anion Gap BUN Creatinine Est GFR (CKD-EPI 2020) Glucose Calcium Magnesium Total Bilirubin AST ALT Alkaline Phosphatase Troponin I NT-Pro-B Natriuret Pep Total Protein Albumin COVID-19 Source Nasal/Nares SARS-CoV-2 (PCR) Negative Last Vital Signs Temp 36.6 C 06/14/23 07:50 Pulse 54 L 06/14/23 16:31 Resp 11 L 06/14/23 16:31 BP 111/46 L 06/14/23 16:31 Pulse Ox 96 06/14/23 16:31 Time Spent Time spent with Patient: 55-74 minutes Time was spent: preparing to see the patient(eg.review tests), obtaining and/or reviewing separately otained hiistory, ordering medications,tests, procedures, referring, communicating with other health wound care coordinator, indepentently interpreting results, counseling the patient and care coordination
[2023-06-14 18:27] LABS: INR 1.1 (0.9-1.1); Prothrombin Time 11.1 sec (9.1-11.1)
[2023-06-14 18:32] LABS: Troponin I 712 ng/L (< or =60)
[2023-06-14 18:46] LABS: Potassium 2.6 mmol/L (3.5-5.1)
[2023-06-14 19:04] LABS: PTT Activated 107.5 sec (23.6-32.8)
[2023-06-14] MEDS: Normal Saline Flush 10 ML SYR IVP (20:26)
[2023-06-14] MEDS: Potassium Chloride 10 MEQ CAPCR 40 MEQ PO (20:26)
[2023-06-14] MEDS: Gabapentin 600 MG TAB PO (20:26)
[2023-06-14] MEDS: rOPINIRole 1 MG TAB PO (20:26)
[2023-06-14] MEDS: Atorvastatin 40 MG TAB 80 MG PO (20:26)
[2023-06-14] MEDS: POTASSIUM CHLORIDE 10 MEQ/100 ML BAG 100 MEQ IVINF (20:33)
--- NOTE | 2023-06-14 22:01 | DSE_ITS ---
Date of service: 06/14/23 Time of Service: 21:30 DS: Diagnosis Discharge Diagnosis (1) Acute non-ST elevation myocardial infarction (NSTEMI): Start date: 06/14/23 Status: Acute Asessment and Plan: Acute worsening of chest pain with patient having positive troponins. Continue IV heparin and nitroglycerin infusion. (2) Chest pain: Start date: 06/14/23 Status: Acute Asessment and Plan: Somewhat atypical but positive troponins with patient having recent cardiac catheterization being clean. Evaluated at [facility]. Patient is on nitroglycerin infusion which is helping her pain and heparin infusion for acute non-STEMI (3) Hypokalemia: Start date: 06/14/23 Status: Acute Asessment and Plan: Replete with IV potassium, patient is currently on metolazone. (4) Hypermagnesemia: Start date: 06/14/23 Status: Acute Asessment and Plan: Associated with CATIE. (5) CATIE (acute kidney injury): Start date: 06/14/23 Status: Acute Asessment and Plan: Monitor with IV fluids were given with drips. Follow-up echocardiogram if indicated if more aggressive fluid resuscitation needed. Patient did just have cardiac catheterization recently. Discharge Plan Disposition Patient Disposition: Transfer-Acute Inpatient Care Specific Acute In Facility: [facility] Condition: Serious Discharge Details Reason For Visit: NSTEMI Admit Date/Time: 06/14/23 14:33 Admit Provider: Edwin Ball Attending Provider: Edwin Ball Primary Care Provider: Polo Pearce Hospital Course Hospital Course: This is a 53-year-old lady presenting to the ED with chest pain which responded to nitroglycerin and had elevated troponins prompting consultation with [facility] for transfer. She was accepted to cardiology service under Dr. Mesa with bed availability not opening until the patient was admitted to ICU in the early evening. She was stable on her medical therapy with details per H&P. She was transferred out via ambulance to [facility] and is a full code. Of note she did have a recent cardiac catheterization which was unrevealing. She did not appear to have an acute PE which has been a problem in the past. She was stable at transfer. Home Meds and New Rx's Prescriptions: No Action ropinirole 1 mg tablet 1 mg PO BID Rx Instructions: @ 1600 and 2100 Nurtec ODT 75 mg tablet,disintegrating 75 mg PO ONCE PRN (Reason: migraine headache) Qty: 10 3RF Rx Instructions: As a single dose. No more than one dose in 24 hours. amlodipine 5 mg tablet 5 mg PO DAILY isosorbide mononitrate 30 mg tablet extended release 24 hr 30 mg PO DAILY atorvastatin 80 mg tablet 80 mg PO QPM empagliflozin 10 mg tablet 10 mg PO DAILY fluticasone propionate [Flonase Allergy Relief] 9.9 ML spray,suspension 2 spray NS DAILY duloxetine [Cymbalta] 60 mg capsule,delayed release(DR/EC) 60 mg PO DAILY Qty: 30 2RF albuterol sulfate 90 mcg/actuation HFA aerosol inhaler 2 puff inhalation Q4H PRN loratadine [Allergy Relief (loratadine)] 10 mg tablet 10 mg PO DAILY PRN nitroglycerin 0.4 mg tablet, sublingual 0.4 mg sublingual Q5M PRN Rx Instructions: do not exceed 3 doses per episode Aimovig Autoinjector 140 mg/mL auto-injector 140 mg subcut QMONTH Qty: 1 11RF Hold Instructions: On Hold montelukast 10 mg tablet 10 mg PO DAILY clobetasol 0.05 % ointment 1 applic topical DIRECTED omeprazole 20 mg capsule,delayed release(DR/EC) 20 mg PO DAILY PRN gabapentin 600 mg tablet 600 mg PO QHS Qty: 90 3RF topiramate [Topamax] 100 mg tablet 100 mg PO QHS Qty: 90 3RF apixaban 5 mg (74 tabs) tablets,dose pack 5 mg PO ONCE Qty: 74 0RF melatonin 10 mg capsule 10 mg PO HS PRN metolazone 2.5 mg tablet 2.5 mg PO DAILY Discharge Instructions Activity:: Bedrest Equipment/Supplies:: No Equipment Needed Diet:: NPO Discharge Data Discharge Date/Time-TO BE ENTERED AT DEPARTURE: 06/14/23 21:17 Discharge Comment: sent to [facility] for continuity of care DS: Summary Time Spent with Patient providing and/or coordinating discharge services: Less than 30 minutes Status at Discharge Functional status at discharge: bed bound Overall status at discharge: patient is not back to baseline Mental Status: mental status grossly normal Speech and Movement: speech and movement normal Mood: congruent mood Affect: normal affect Quality:SDOH Health Related Social Needs: No Data to Display Exam Narrative Exam Narrative: See ED and admission physical exam with patient not reexamined prior to transfer. Psych Mental Status: mental status grossly normal Speech and Movement: speech and movement normal Mood: congruent mood Affect: normal affect DS: Data Vitals/I&O Vitals and I&O: Vital Signs Temperature 36.6 C 06/14/23 20:13 Temperature Source Tympanic 06/14/23 20:13 Pulse 50 L 06/14/23 19:16 Pulse 57 L 06/14/23 20:10 Respiratory Rate 13 06/14/23 20:13 Respiratory Effort Normal, Non-Labored 06/14/23 20:13 Respiratory Depth Normal 06/14/23 20:13 Respiratory Pattern Normal 06/14/23 20:13 Blood Pressure 108/68 06/14/23 19:40 Blood Pressure Mean 80 06/14/23 19:40 Blood Pressure Position Sitting 06/14/23 07:50 Pulse Oximetry 100 06/14/23 20:13 Oxygen Delivery Method Room Air 06/14/23 07:50 Oxygen Flow Rate 0 06/14/23 07:50 Pain Level 0 06/14/23 21:13 Intake & Output 06/13/23 06/14/23 06/14/23 23:59 11:59 23:59 Intake Total 100 / 675.667 575.667 / 675.667 Balance 100 / 675.667 575.667 / 675.667 Weight 99.337 kg 99.337 kg Intake: IV 100 / 675.667 575.667 / 675.667 Data Completed and Pending Labs on day of discharge: Labs from last 24 hours 06/14/23 06/14/23 06/14/23 18:05 16:01 10:50 WBC RBC Hgb Hct MCV MCH MCHC RDW Plt Count MPV Immature Gran % Neutrophils % Lymphocytes % Monocytes % Eosinophils % Basophils % Nucleated RBC % Absolute Neutrophils Absolute Lymphocytes Absolute Monocytes Absolute Eosinophils Absolute Basophils PT 11.1 INR 1.1 APTT 107.5 H* Sodium Potassium 2.6 L* Chloride Carbon Dioxide Anion Gap BUN Creatinine Est GFR (CKD-EPI 2020) Glucose Calcium Magnesium Total Bilirubin AST ALT Alkaline Phosphatase Troponin I 712 H* 788 H* NT-Pro-B Natriuret Pep Total Protein Albumin COVID-19 Source Nasal/Nares SARS-CoV-2 (PCR) Negative 06/14/23 06/14/23 08:30 08:30 WBC 8.08 RBC 5.76 H Hgb 17.9 H Hct 49.9 H MCV 87 MCH 31.1 MCHC 35.9 RDW 12.9 Plt Count 345 MPV 10.6 Immature Gran % 0.1 Neutrophils % 62.2 Lymphocytes % 22.0 Monocytes % 12.4 Eosinophils % 2.7 Basophils % 0.6 Nucleated RBC % 0.0 Absolute Neutrophils 5.02 Absolute Lymphocytes 1.78 Absolute Monocytes 1.00 H Absolute Eosinophils 0.22 Absolute Basophils 0.05 PT 11.0 INR 1.1 APTT 32.7 Sodium 134 L Potassium 2.2 L* Chloride 88 L Carbon Dioxide 32.9 H Anion Gap 13.1 H BUN 39 H Creatinine 2.1 H Est GFR (CKD-EPI 2020) 27.48 Glucose 132 H Calcium 9.7 Magnesium 2.9 H Total Bilirubin 0.7 AST 39 H ALT 41 Alkaline Phosphatase 89 Troponin I 886 H* NT-Pro-B Natriuret Pep Cancelled 3815 H Total Protein 9.5 H Albumin 4.6 COVID-19 Source SARS-CoV-2 (PCR) Additional Comments Additional comments: Patient was accepted to [facility] under Dr. Mesa's cardiology service on IV nitroglycerin and heparin with acute non-STEMI and plans for possible reintervention. She is a full code. PFS All Active Problems Hypokalemia (Acute) Hypermagnesemia (Acute) Acute hypokalemia (Acute) Acute non-ST elevation myocardial infarction (NSTEMI) (Acute) Ground glass opacity present on imaging of lung (Acute) Elevated troponin (Acute) CATIE (acute kidney injury) (Acute) Restrictive lung disease secondary to obesity (Acute) Allergic asthma (Acute) intermittent, controlled Dyspnea (Acute) Diarrhea (Acute) Congestive heart failure (Chronic) Sick euthyroidism (Acute) Carpal tunnel syndrome (Acute) GERD (gastroesophageal reflux disease) (Chronic) Bilateral renal artery stenosis (Acute) Encounter for weight loss counseling (Acute) Pulmonary emboli (Acute) Arthritis of carpometacarpal (CMC) joint of left thumb (Acute) Avulsion fracture of right talus (Acute 12/30/21) Bilateral carpal tunnel syndrome (Acute) Paresthesia of hand, bilateral (Acute) Abnormal chest CT (Acute) Pulmonary hypertension (Acute) Atypical chest pain (Acute) PSVT (paroxysmal supraventricular tachycardia) (Acute) Acute non-ST elevation myocardial infarction (NSTEMI) (Acute) Elevated troponin I level (Acute) Right upper quadrant abdominal pain (Acute) Chronic heart failure with preserved ejection fraction (Chronic) Restless legs syndrome (Acute) Rhinitis, nonallergic, chronic (Acute) Tendinitis (Acute) Chest pain (Acute) Migraine headache without aura (Acute) Lichen sclerosus (Acute) MARYLOU (obstructive sleep apnea) (Chronic) Migraine with aura and without status migrainosus, not intractable (Acute 02/24/16) Medical History Hx of supraventricular tachycardia Infiltrate of lower lobe of left lung present on imaging study Acute non-ST elevation myocardial infarction (NSTEMI) COVID-19 Left lateral epicondylitis Arthritis of carpometacarpal (CMC) joint of left thumb Left wrist pain CHI (closed head injury) Acute bronchitis Non-ST elevation [place] (NSTEMI) Insomnia Asthma Migraine Overweight Endometriosis Depression Surgical History Hx of tubal ligation History of partial hysterectomy Family History Daughter Migraines Mother Hypertension Father Heart disease Social History Smoking/Tobacco Use Status: Never Smoking risk assessment performed?: Yes Alcohol Intake: never Drug use: Never Substance use type: does not use Housing: house Current gender identity: female Do you feel safe at home: Yes Do you feel safe in your relationship?: Yes Female Reproductive History Menstrual Menopause type: surgical History History 2 Para 2 Hx # Term Pregnancies Multiple births Hx # Pregnancies Ectopic pregnancies AB induced Hx Number of Living Children AB spontaneous Time Spent with Patient Time Spent with Patient: <45 minutes Time was spent: preparing to see the patient(eg.review tests), indepentently interpreting results and care coordination
== END 2023-06-14 21:17 | disposition short-term general hospital (02) | DRG 281 ==
LOC: ER 15:52 → ICU 19:38
PROVIDERS: Emergency Medicine; Registered Nurse Emergency; Admitting Provider Internal Medicine; Emergency Provider Student in an Organized Health Care Education/Training Program; PCP Physician Assistant; Visit Provider Internal Medicine
DX: I21.4 Non-ST elevation (NSTEMI) myocardial infarction (principal); I13.0 Hypertensive heart and chronic kidney disease with heart failure and stage 1 through stage 4 chronic kidney disease, or unspecified chronic kidney disease; N17.9 Acute kidney failure, unspecified; I27.82 Chronic pulmonary embolism; I50.32 Chronic diastolic (congestive) heart failure; I47.19 Other supraventricular tachycardia; I25.2 Old myocardial infarction; I25.10 Atherosclerotic heart disease of native coronary artery without angina pectoris; Z79.01 Long term (current) use of anticoagulants; E87.6 Hypokalemia; N18.30 Chronic kidney disease, stage 3 unspecified; K21.9 Gastro-esophageal reflux disease without esophagitis; G47.00 Insomnia, unspecified; J45.909 Unspecified asthma, uncomplicated; F32.A Depression, unspecified; E66.3 Overweight; R91.8 Other nonspecific abnormal finding of lung field; I70.1 Atherosclerosis of renal artery; G25.81 Restless legs syndrome; G43.009 Migraine without aura, not intractable, without status migrainosus; G47.33 Obstructive sleep apnea (adult) (pediatric); Z68.37 Body mass index [BMI] 37.0-37.9, adult; E83.41 Hypermagnesemia
CPT/HCPCS: 00123; 71275; 80053; 87635; 93005; 93308; 96365; 96366; 96367; 96375; 99291; 83735; 83880; 84132; 84484; 85025; 85610; 85730; 93010; 93306; 99223; J1644; J2305; J2405; J3480; J3490

== ENCOUNTER 2023-07-20 15:19 | Outpatient (REF) | payer BC, SELFPAY ==
[2023-07-20 15:00] LABS: Anion Gap 14.8 mmol/L (3-11); BUN 29 mg/dL (7-18); CO2 23.2 mmol/L (21.0-32.0); CREATININE 1.5 mg/dL (0.55-1.02); Chloride 101 mmol/L (98-107); Estimated GFR 41.16 (mL/min/1.73m2); Glucose 88 mg/dL (74-106); Potassium 3.8 mmol/L (3.5-5.1); Sodium 139 mmol/L (136-145)
== END 2023-07-20 15:20 | disposition home or self-care (01) ==
LOC: NCHCN 15:19
PROVIDERS: PCP Physician Assistant; Visit Provider Physician Assistant
DX: I50.9 Heart failure, unspecified (principal)
CPT/HCPCS: 80048

== ENCOUNTER 2023-08-28 10:15 | Emergency (ER) | payer BC, SELFPAY ==
[2023-08-28] VITALS (47 sets, daily range): BP systolic 67–145; BP diastolic 35–78; PULSE 47–80; RESP 8–18; TEMP 37; O2SAT 93–99
--- NOTE | 2023-08-28 10:15 | DI.CT_ITS ---
Exam(s) CT CHEST PE CTA EXAM: CT CHEST PE CTA CLINICAL HISTORY: chest pain, hx PE. TECHNIQUE: Imaging Protocol: Axial CT angiography was performed with multi-slice acquisition and mu lti-planar reconstructions as well as axial, coronal and sagittal MIP reconstructions. CONTRAST MATERIAL: Intravenous: Omnipaque 350 Contrast volume:100 ml COMPARISON: CT CT CHEST PE CTA from 06/14/2023 FINDINGS: Pulmonary Arteries: No evidence of filling defect to suggest pulmonary emboli. Pulmonary artery aga in noted to be dilated, likely indicating pulmonary hypertension. Tracheobronchial tree: No mucous plugging. Mediastinum and Jessica: Small lymph nodes, consistent with reactive lymph nodes. Pulmonary parenchyma: Mildly limited evaluation due to respiratory motion and expiratory changes. Ne julee diffuse bilateral ground-glass opacities, worsening from prior.. Findings consistent with viral pneumonitis. Pleura: No effusion or pneumothorax. Heart: The heart is mildly dilated. Mild coronary artery calcifications are seen. Aorta: Thoracic aorta non-dilated. No dissection. Upper abdomen: No acute findings. Bones: Unremarkable for age. Tubes, Catheters, and Lines: None Soft tissues: Unremarkable. IMPRESSION: No evidence of pulmonary embolism. Severe diffuse bilateral gland grass infiltrates consistent with viral pneumonitis. RADIATION DOSE DELIVERED: Total DLP DATA REPOSITORY: All CT scans at this facility are submitted to the National Radiology Data Registry (NRDR) Dose Index Registry (DIR) with the [employer] ([employer]). RADIATION OPTIMIZATION: All CT scans at this facility use at least one of these dose optimization te chniques: automated exposure control; mA and/or kV adjustment per patient size (includes targeted exa ms where dose is matched to clinical indication); or iterative reconstruction.
--- NOTE | 2023-08-28 10:15 | RT.EKG_ITS ---
APPROVED REPORT Exam: Resting ECG Reason for Exam: chest pain Patient Location: E HR:81 bpm ECG Measurements Heart Rate 81 AXIS DC 184 P 32 QRSd 95 QRS 51 QT 455 T 50 QTc 528 Conclusion Sinus rhythm...normal P axis, V-rate 60- 99 Probable left atrial enlargement...P >50mS, <-0.10mV V1 Borderline ST depression, diffuse leads...ST <-0.07mV, ant/lat/inf Prolonged QT interval...QTc >510mS sinus rhythm, normal axis, prolonged qtc, considerl st depression inferior lateral
--- NOTE | 2023-08-28 10:29 | W.ED.GENAD ---
Discharge Plan Disposition Patient Disposition: Transfer-Acute Inpatient Care Specific Acute Inpt Facility: [facility] Condition: Stable Discharge Details Chief Complaint: Chest Pain Clinical Impression: Non-ST elevation MD (NSTEMI) Primary Care Provider: Polo Pearce ED Provider: Antonio Sanchez Home Meds and New Rx's Prescriptions: No Action ropinirole 1 mg tablet 1 mg PO BID Rx Instructions: @ 1600 and 2100 Nurtec ODT 75 mg tablet,disintegrating 75 mg PO ONCE PRN (Reason: migraine headache) Qty: 10 3RF Rx Instructions: As a single dose. No more than one dose in 24 hours. isosorbide mononitrate 30 mg tablet extended release 24 hr 30 mg PO DAILY atorvastatin 80 mg tablet 80 mg PO QPM fluticasone propionate [Flonase Allergy Relief] 9.9 ML spray,suspension 2 spray NS DAILY duloxetine [Cymbalta] 60 mg capsule,delayed release(DR/EC) 60 mg PO DAILY Qty: 30 2RF albuterol sulfate 90 mcg/actuation HFA aerosol inhaler 2 puff inhalation Q4H PRN loratadine [Allergy Relief (loratadine)] 10 mg tablet 10 mg PO DAILY PRN nitroglycerin 0.4 mg tablet, sublingual 0.4 mg sublingual Q5M PRN Rx Instructions: do not exceed 3 doses per episode Aimovig Autoinjector 140 mg/mL auto-injector 140 mg subcut QMONTH Qty: 1 11RF Hold Instructions: On Hold montelukast 10 mg tablet 10 mg PO DAILY clobetasol 0.05 % ointment 1 applic topical DIRECTED omeprazole 20 mg capsule,delayed release(DR/EC) 20 mg PO DAILY PRN gabapentin 600 mg tablet 600 mg PO QHS Qty: 90 3RF topiramate [Topamax] 100 mg tablet 100 mg PO QHS Qty: 90 3RF amlodipine 2.5 mg tablet 2.5 mg PO DAILY apixaban 5 mg tablet 5 mg PO BID metoprolol succinate 25 mg tablet extended release 24 hr 25 mg PO DAILY Jardiance 10 mg tablet 10 mg PO DAILY ranolazine 1,000 mg tablet extended release 12 hr 1,000 mg PO BID spironolactone 25 mg tablet 25 mg PO DAILY torsemide 40 mg tablet 40 mg PO DAILY melatonin 10 mg capsule 10 mg PO HS PRN metolazone 2.5 mg tablet 2.5 mg PO DAILY HPI General Date/Time Provider Initiated Documentation: 08/28/23 10:18. HPI Narrative: 53-year-old female history of NSTEMI, PE on anticoagulation presents with a couple days of heaviness to her chest rating to her left arm associate with nausea Related Data Home Medications Medication Instructions Recorded Confirmed fluticasone propionate 50 2 spray NS DAILY 12/23/16 08/28/23 mcg/actuation nasal spray,suspension (Flonase Allergy Relief) ropinirole 1 mg tablet 1 mg PO BID 06/12/20 08/28/23 duloxetine 60 mg capsule,delayed 60 mg PO DAILY #30 mg 08/19/20 08/28/23 release (Cymbalta) albuterol sulfate 90 mcg/actuation 2 puff inhalation Q4H PRN 05/30/21 08/28/23 aerosol inhaler loratadine 10 mg tablet (Allergy 10 mg PO DAILY PRN 05/30/21 08/28/23 Relief (loratadine)) atorvastatin 80 mg tablet 80 mg PO QPM 06/10/21 08/28/23 nitroglycerin 0.4 mg sublingual 0.4 mg sublingual Q5M PRN 09/25/21 08/28/23 tablet erenumab-aooe 140 mg/mL 140 mg subcut QMONTH #1 mL 07/28/22 08/28/23 subcutaneous auto-injector (Aimovig Autoinjector) rimegepant 75 mg disintegrating 75 mg PO ONCE PRN migraine 08/25/22 08/28/23 tablet (Nurtec ODT) headache #10 tabs montelukast 10 mg tablet 10 mg PO DAILY 08/27/22 08/28/23 clobetasol 0.05 % topical ointment 1 applic topical DIRECTED 08/28/22 08/28/23 omeprazole 20 mg capsule,delayed 20 mg PO DAILY PRN 08/28/22 08/28/23 release isosorbide mononitrate 30 mg 30 mg PO DAILY 10/06/22 08/28/23 tablet,extended release 24 hr gabapentin 600 mg tablet 600 mg PO QHS #90 tabs 01/04/23 08/28/23 topiramate 100 mg tablet (Topamax) 100 mg PO QHS #90 tab-caps 01/18/23 08/28/23 melatonin 10 mg capsule 10 mg PO HS PRN 04/16/23 08/28/23 metolazone 2.5 mg tablet 2.5 mg PO DAILY 06/14/23 08/28/23 amlodipine 2.5 mg tablet 2.5 mg PO DAILY 08/13/23 08/28/23 apixaban 5 mg tablet 5 mg PO BID 08/13/23 08/28/23 empagliflozin 10 mg tablet 10 mg PO DAILY 08/13/23 08/28/23 (Jardiance) metoprolol succinate 25 mg 25 mg PO DAILY 08/13/23 08/28/23 tablet,extended release 24 hr ranolazine 1,000 mg 1,000 mg PO BID 08/13/23 08/28/23 tablet,extended release,12 hr spironolactone 25 mg tablet 25 mg PO DAILY 08/13/23 08/28/23 torsemide 40 mg tablet 40 mg PO DAILY 08/13/23 08/28/23 Previous Rx's Medication Instructions Recorded duloxetine 60 mg capsule,delayed 60 mg PO DAILY #30 mg 08/19/20 release (Cymbalta) erenumab-aooe 140 mg/mL 140 mg subcut QMONTH #1 mL 07/28/22 subcutaneous auto-injector (Aimovig Autoinjector) rimegepant 75 mg disintegrating 75 mg PO ONCE PRN migraine 08/25/22 tablet (Nurtec ODT) headache #10 tabs gabapentin 600 mg tablet 600 mg PO QHS #90 tabs 01/04/23 topiramate 100 mg tablet (Topamax) 100 mg PO QHS #90 tab-caps 01/18/23 Allergies Allergy/AdvReac Type Severity Reaction Status Date / Time acetaminophen [From Tylenol] AdvReac Intermediate jittery Unverified 08/28/23 10:33 like too much caffeine clobetasol AdvReac Intermediate Skin Rash Verified 08/28/23 10:24 codeine AdvReac Mild Not able Verified 08/28/23 10:33 to sleep ibuprofen AdvReac migraines Unverified 08/28/23 10:33 environmental Allergy Mild sneezing/triggers Uncoded 08/28/23 10:33 her asthma General Stated Complaint: Chest Pain MIKAELA: 2 Review of Systems Narrative: Review of Systems Constitutional: negative Eyes: negative ENT: negative Cardiovascular: Chest pain Respiratory: negative Gastrointestinal: negative : negative Musculoskeletal: negative Skin: negative Neurologic: negative Psych: negative Exam Narrative Exam Narrative: Physical Examination General: alert, awake, cooperative HEENT: normocephalic, atraumatic; PERRL, EOM intact, conjunctiva normal; no nasal discharge; moist mucous membranes, oral and pharyngeal mucosa normal, tolerating secretions Neck: supple, trachea midline; full ROM Chest: normal to inspection Respiratory: normal respiratory effort, speaking in full sentences, clear to auscultation, no wheezing, rales or rhonchi Cardiac: regular rate, regular rhythm, S1S2 intact, no murmurs rubs or gallops GI: abdomen soft, non-tender, non-distended; no palpable mass or hepatosplenomegaly Skin: no lesions, rashes or trauma appreciated Neuro: AAOx3, normal speech, moving all extremities Extremities: No peripheral edema Psych: Appropriate mood and affect Course Vital Signs Vital signs: Vital Signs Temperature 37.0 C 08/28/23 10:18 Pulse 80 08/28/23 10:18 Respiratory Rate 15 08/28/23 10:18 Blood Pressure 145/78 H 08/28/23 10:18 Pulse Oximetry 98 08/28/23 10:18 Temperature 37.0 C 08/28/23 10:18 Temperature Source Temporal Artery Scan 08/28/23 10:18 Pulse 80 08/28/23 10:18 Respiratory Rate 15 08/28/23 10:18 Blood Pressure 145/78 H 08/28/23 10:18 Blood Pressure Position Supine 08/28/23 10:18 Pulse Oximetry 98 08/28/23 10:18 Oxygen Delivery Method Room Air 08/28/23 10:18 Oxygen Flow Rate 0 08/28/23 10:18 Pain Level 5 08/28/23 10:18 Medical Decision Making 53-year-old female history of NSTEMI, PE presents with anterior chest pain rating to her arm associate with nausea over the past couple of days, denies history of cardiac stenting, patient does endorse exertional dyspnea over the past couple of days, alert oriented interactive nontoxic hemodynamically stable, nonhypoxic, EKG normal sinus rhythm normal axis normal intervals patient does have ST segment depressions inferior lateral leads must consider ACS versus PE lower suspicion for myocarditis or pericarditis lower suspicion for aortic pathology or pneumonia. Labs CT chest patient loaded with aspirin disposition pending reassessment and results 12: 29 evidence of NSTEMI, elevated troponin near 700, BNP over 3000, although no signs of pulmonary edema currently, patient resting comfortably alert oriented interactive no respiratory distress, did drop her pressure and her heart rate bradycardia to 57 blood pressure 88/46 moved cuff and repeated pressure with similar readings, consider component of sick sinus syndrome in the setting of right-sided NSTEMI, replating potassium, loaded with heparin and clopidogrel after speaking with cardiology at [facility] who is accepted patient for transfer accepting physician Dr. Angelo. Administering light fluid bolus of normal saline will reassess pressure consider atropine if patient is persistently bradycardic 12: 59 blood pressure improved 99/62, patient resting comfortably no acute distress. Quality:SDOH Health Related Social Needs: No Data to Display PFSH All Active Problems (Updated 08/28/23 @ 13:00 by Antonio Sanchez MD) Non-ST elevation MD (NSTEMI) (Acute) Chronic kidney disease, stage III (moderate) (Acute) Hypermagnesemia (Acute) Acute hypokalemia (Acute) Ground glass opacity present on imaging of lung (Acute) Elevated troponin (Acute) CATIE (acute kidney injury) (Acute) Restrictive lung disease secondary to obesity (Acute) Allergic asthma (Acute) intermittent, controlled Dyspnea (Acute) Diarrhea (Acute) Congestive heart failure (Chronic) Sick euthyroidism (Acute) Carpal tunnel syndrome (Acute) GERD (gastroesophageal reflux disease) (Chronic) Bilateral renal artery stenosis (Acute) Encounter for weight loss counseling (Acute) Pulmonary emboli (Chronic) Arthritis of carpometacarpal (CMC) joint of left thumb (Acute) Avulsion fracture of right talus (Acute 12/30/21) Bilateral carpal tunnel syndrome (Acute) Paresthesia of hand, bilateral (Acute) Abnormal chest CT (Acute) Pulmonary hypertension (Acute) Atypical chest pain (Acute) PSVT (paroxysmal supraventricular tachycardia) (Acute) Acute non-ST elevation myocardial infarction (NSTEMI) (Acute) Elevated troponin I level (Acute) Right upper quadrant abdominal pain (Acute) Chronic heart failure with preserved ejection fraction (Chronic) Restless legs syndrome (Acute) Rhinitis, nonallergic, chronic (Acute) Tendinitis (Acute) Chest pain (Acute) Migraine headache without aura (Acute) Lichen sclerosus (Acute) MARYLOU (obstructive sleep apnea) (Chronic) Migraine with aura and without status migrainosus, not intractable (Acute 02/24/16) Medical History (Updated 08/28/23 @ 13:00 by Antonio Sanchez MD) Myocardial infarction 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 Mild intermittent asthma Atherosclerosis of renal artery Heart failure Supraventricular tachycardia Atrial fibrillation Superior mesenteric artery stenosis (~03/10/22) see CTA abdomen and pelivs: 80% narrowing of SMA origin Renal artery stenosis (~03/10/22) right renal artery stenosis per CTA abomen/pelvis Hx of supraventricular tachycardia Infiltrate of lower lobe of left lung present on imaging study Acute non-ST elevation myocardial infarction (NSTEMI) COVID-19 Left lateral epicondylitis Arthritis of carpometacarpal (CMC) joint of left thumb Left wrist pain CHI (closed head injury) Acute bronchitis Non-ST elevation MD (NSTEMI) Insomnia Asthma Migraine Overweight Endometriosis Depression Surgical History (Updated 06/14/23 @ 22:27 by Edwin Ball MD) History of radiofrequency ablation (RFA) procedure for cardiac arrhythmia Hx of tubal ligation History of partial hysterectomy Family History Daughter Migraines Mother Hypertension Father Heart disease Social History Smoking/Tobacco Use Status: Never Smoking risk assessment performed?: Yes Alcohol Intake: never Drug use: Never Substance use type: does not use Housing: house Current gender identity: female Do you feel safe at home: Yes Do you feel safe in your relationship?: Yes Female Reproductive History Menstrual Menopause type: surgical History History 2 Para 2 Hx # Term Pregnancies Multiple births Hx # Pregnancies Ectopic pregnancies AB induced Hx Number of Living Children AB spontaneous
[2023-08-28] MEDS: Aspirin 81 MG CHEW 324 MG CH (10:35)
[2023-08-28 10:56] LABS: Abs Immature Grans 0.02 10^3/uL (0.0-0.06); Absolute Basophil Count 0.04 10^3/uL (0.0-0.2); Absolute Eosinophil Count 0.25 10^3/uL (0.0-0.7); Absolute Lymphocyte Count 1.28 10^3/uL (1.2-3.4); Absolute Monocyte Count 0.39 10^3/uL (0.1-0.8); Absolute Neutrophil Count 4.02 10^3/uL (1.2-6.7); Basophils % 0.7 %; Eosinophils % 4.2 %; HCT 41.6 % (36.0-46.0); HGB 13.8 g/dL (11.2-15.7); Immature Grans % 0.3 %; Lymphocytes % 21.3 %; MCH 31.7 pg (27.0-33.0); MCHC 33.2 % (32.0-36.0); MCV 96 fL (80-95); MPV 10.5 fL (8.0-11.0); Monocytes % 6.5 %; Platelet Count 223 10^3/uL (130-400); RBC 4.35 10^6/uL (3.93-5.22); RDW 13.1 % (11.7-14.6); RDW-SD 46.2 fL
[2023-08-28 11:05] LABS: INR 1.1 (0.9-1.1); PTT Activated 27.7 sec (23.6-32.8); Prothrombin Time 10.7 sec (9.1-11.1)
[2023-08-28] MEDS: Normal Saline - Diluent 50 ML VIAL IJ (11:07)
[2023-08-28] MEDS: Omnipaque 350 MG/ML 100 ML BTL IJ (11:08)
[2023-08-28] MEDS: Normal Saline Flush 10 ML SYR IVP (11:09)
[2023-08-28 11:21] LABS: ALT 37 U/L (14-59); AST 29 U/L (15-37); Albumin 3.7 g/dL (3.4-5.0); Alkaline Phosphatase 54 U/L (46-116); Anion Gap 13.1 mmol/L (3-11); BUN 26 mg/dL (7-18); Bilirubin, Total 0.61 mg/dL (0.2-1.0); CO2 23.9 mmol/L (21.0-32.0); CREATININE 1.3 mg/dL (0.55-1.02); Calcium 8.8 mg/dL (8.5-10.1); Chloride 105 mmol/L (98-107); Estimated GFR 48.87 (mL/min/1.73m2); Glucose 128 mg/dL (74-106); Magnesium 2.2 mg/dL (1.8-2.4); NT-proBNP 3164 pg/mL (<300); Sodium 142 mmol/L (136-145); TSH (W/Ref FT4) 4.35 uIU/mL (0.36-3.74); Total Protein 7.4 g/dL (6.4-8.2)
[2023-08-28 11:28] LABS: Troponin I 698 ng/L (< or =60)
[2023-08-28] MEDS: Normal Saline 250 ML IV (11:29)
[2023-08-28 11:45] LABS: FREE T4 0.91 ng/dL (0.76-1.46)
[2023-08-28] MEDS: POTASSIUM CHLORIDE 10 MEQ/100 ML BAG 100 MEQ IVINF (11:50)
--- NOTE | 2023-08-28 12:00 | RT.EKG_ITS ---
APPROVED REPORT Exam: Resting ECG Reason for Exam: chest pain Patient Location: E HR:59 bpm ECG Measurements Heart Rate 59 AXIS ME 171 P 24 QRSd 96 QRS 41 QT 586 T 35 QTc 581 Conclusion Sinus bradycardia...rate< 60 Prolonged QT interval...QTc >510mS sinus rhtyhm, normal axis, prolonged qtc, non ischemic
[2023-08-28] MEDS: Clopidogrel 300 MG TAB PO (12:23)
[2023-08-28] MEDS: Heparin in 0.45% NaCl 25,000 UNIT/250 ML BAG 10 UNIT IV (12:24)
--- NOTE | 2023-08-28 12:31 | DI.VRAD_ITS ---
PROCEDURE INFORMATION: Exam: CTA Chest With Contrast Exam date and time: 08/28/2023 11:04 AM Age: 53 years old Clinical indication: Other: Chest pain, HX pe TECHNIQUE: Imaging protocol: Computed tomographic angiography of the chest with contrast. Exam focused on the arteries. 3D rendering (Not supervised by radiologist): MIP and/or 3D reconstructed images were created by the technologist. Contrast material: OMNIPAQUE 350; Contrast volume: 100 ml; Contrast route: INTRAVENOUS (IV); COMPARISON: CT CHEST PE CTA 06/14/2023 10:08 AM FINDINGS: Pulmonary arteries: Pulmonary arteries are dilated may represent pulmonary hypertension. Main pulmonary artery is 4.0 cm. There is no pulmonary embolism visualized. Aorta: No aortic aneurysm. No aortic dissection. Lungs: Extensive bilateral ground-glass densities in the lungs with crazy paving pattern. Pleural spaces: . No pneumothorax. No pleural effusion. Heart: Heart is enlarged. Lymph nodes: There are nonspecific slightly prominent lymph nodes in the mediastinum in the left para-aortic, subaortic, subcarinal regions, probably reactive. Bones/joints: No acute fracture. Soft tissues: Unremarkable. IMPRESSION: 1. No pulmonary embolism or aortic dissection. 2. Pulmonary arteries are dilated and may represent pulmonary hypertension. 3. Diffuse ground-glass densities in the bilateral lungs suspicious of pulmonary edema versus pneumonia or diffuse inflammatory process Dictated and Authenticated by: Misbah Fernandez MD. Ordering:NNEKA Alvarez MD
[2023-08-28 14:03] LABS: Troponin I 669 ng/L (< or =60)
[2023-08-28 17:11] LABS: Troponin I 598 ng/L (< or =60)
[2023-08-28 18:52] LABS: INR 1.2 (0.9-1.1); Prothrombin Time 12.3 sec (9.1-11.1)
[2023-08-28] MEDS: DOPamine 400 MG/250 ML BAG 9.44 MG IV (18:57)
== END 2023-08-28 19:14 | disposition short-term general hospital (02) ==
PROVIDERS: Student in an Organized Health Care Education/Training Program; Emergency Provider Emergency Medicine; PCP Physician Assistant
DX: I21.4 Non-ST elevation (NSTEMI) myocardial infarction (principal); R07.9 Chest pain, unspecified; R06.02 Shortness of breath; R11.0 Nausea; M79.602 Pain in left arm
CPT/HCPCS: 36415; 71275; 80053; 93005; 96361; 96365; 96366; 99285; 83735; 83880; 84439; 84443; 84484; 85025; 85610; 85730; 93010; J1265; J1644; J3480; J3490

== ENCOUNTER 2023-09-20 14:12 | Inpatient (IN) | payer BC, SELFPAY ==
[2023-09-20] VITALS (44 sets, daily range): BP systolic 94–130; BP diastolic 30–70; PULSE 42–83; RESP 10–23; TEMP 36.3–36.6; O2SAT 89–100
--- NOTE | 2023-09-20 14:15 | RT.EKG_ITS ---
APPROVED REPORT Exam: Resting ECG Reason for Exam: Chest pain Patient Location: E HR:46 bpm ECG Measurements Heart Rate 46 AXIS AR 191 P 31 QRSd 107 QRS 0 QT 674 T [id number] QTc 593 Conclusion Sinus bradycardia. 46 normal axis prolonged QTc 593
--- OUTSIDE RECORDS SUMMARY | 2023-09-20 14:28 | XMS_ITS | Clinical Summary ---
Author Organization [facility] [place] [address] Care Team Providers Care Fire Services Plumber Name Role Phone Polo Pearce Primary Care Provider [phone] Allergies Active Allergy Reactions Criticality Noted Date Comments Acetaminophen Other (See Comments) Medium 04/18/2023 Makes her jittery, feel weird and cause swelling in upper/lower extremities Clobetasol Rash Medium 08/29/2019 Other reaction(s): Skin Rash Codeine Other (See Comments) High 06/14/2023 Per pt it causes severe jittery and uncomfortable feeling Medications Medication Sig Dispensed Refills Start Date End Date Status DULoxetine (CYMBALTA) 60 mg capsule Take 60 mg by mouth daily. 06/26/2010 Active albuterol (PROVENTIL HFA;VENTOLIN HFA) 90 mcg/Actuation inhaler Inhale 2 puffs into the lungs every 4 hours as needed. Use with spacer Active fluticasone propionate (FLONASE) 50 mcg/actuation Patterson, Suspension 1 spray by Each Nare route as needed. Active gabapentin (Neurontin) 300 mg Capsule Take 600 mg by mouth nightly. Active topiramate (TOPAMAX) 50 mg Tablet Take 100 mg by mouth nightly. Active rOPINIRole (Requip) 1 mg Tablet Take 2 mg by mouth 2 times daily. 07/16/2020 Active loratadine (Claritin) 10 mg Tablet Take 10 mg by mouth daily as needed. Active empagliflozin (Jardiance) 10 mg TabletIndications: ronic heart failure with preserved ejection fraction Take 1 tablet by mouth daily. 90 tablet 1 06/11/2021 Active melatonin 10 mg capsule Take 10 mg by mouth nightly as needed. Active spironolactone (Aldactone) 25 mg tablet Take 1 tablet by mouth daily. 90 tablet 3 02/12/2023 Active apixaban (Eliquis) 5 mg tablet Take 1 tablet by mouth 2 times daily. 60 tablet 11 04/04/2023 Active nitroGLYcerin (Nitrostat) 0.[address] 1 tablet under the tongue every 5 minutes as needed for Chest pain. 90 tablet 12 04/22/2023 Active rimegepant (Nurtec ODT) 75 mg disintegrating tablet Take 75 mg by mouth daily as needed. Active metOLazone (Zaroxolyn) 2.5 mg tablet Take 1 tablet by mouth as needed (take daily for weight gain + increasing shortness of breath. take 30-60 minutes prior to a dose of torsemide). 30 tablet 06/09/2023 Active atorvastatin (Lipitor) 40 mg tablet Take 1 tablet by mouth every evening. 90 tablet 3 07/09/2023 Active torsemide (Demadex) 20 mg tabletIndications:He art failure with preserved ejection fraction, unspecified HF chronicity Take 2 tablets by mouth 2 times daily. 180 tablet 07/14/2023 Active ranolazine ER (Ranexa) 1,000 mg ER 12 hr tablet Take 1 tablet by mouth 2 times daily. 180 tablet 3 07/26/2023 Active omeprazole (PriLOSEC) [address] capsuleIndications:G astroesophageal reflux disease, unspecified whether esophagitis present Take 1 capsule by mouth daily. 30 capsule 5 08/25/2023 08/24/2024 Active metoproloL tartrate (Lopressor) 25 mg tablet Take 1 tablet by mouth 2 times daily. 180 tablet 3 09/10/2023 Active potassium chloride ER (Klor-Con M) 20 mEq ER micro-encapsulated crystal tablet Take 2 tablets by mouth daily for 30 days. 60 tablet 09/10/2023 10/10/2023 Active Active Problems Problem Noted Date Diagnosed Date NSTEMI (non-ST elevated myocardial infarction) 0 08/28/2023 Endometriosis 03/18/2023 Stenosis of left carotid artery greater than 50% 03/18/2023 Restrictive lung disease secondary to obesity Paresthesia of hand, bilateral 03/18/2023 Paroxysmal atrial fibrillation 10/22/2022 Overview (11/17/2022): 10/20/2022: diagnosed in clinic (see EKG on same date) with c/o chest pain Assessment & Plan (07/29/2023 9:54 AM EDT): Remains in NSR - Strategy: paroxysmal rate. Continue not on avnb - OAC: eliquis 5 bid (this is more so for history of PE) - Reversible Causes: obesity Assessment & Plan (03/22/2023 4:58 PM EST): Remains in NSR - Strategy: paroxysmal rate. Continue not on avnb - OAC: eliquis 5 bid (this is more so for history of PE) - Reversible Causes: obesity Assessment & Plan (11/17/2022 9:40 AM EDT): Continues with paroxysms that are associated with the chest pain, confirmed at clinic visit last month. However, by history she may have episodes that correlated with the known AVNRT (which at one point she was in consideration to have an ablation of). I think its reasonable at this point to review with EP and reconsider ablation (perhaps AVNRT first, and then PVI if symptoms continue?). No room on HR to initiate AAD - Strategy: paroxysmal rate. 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 Started on toprol 03/2023: Successful AVNRT ablation Assessment & Plan (07/29/2023 9:54 AM EDT): No issues since ablation Assessment & Plan (03/22/2023 4:57 PM EST): I posit this is what is underlying many of the chest pain issues. She is excited for upcoming ablation Assessment & Plan (07/30/2022 10:09 AM EDT): No recent issues - continue toprol 25 Assessment & Plan (03/16/2022 3:44 PM EST): For ablation later this month - continue toprol 25; can likely d/c after ablation Assessment & Plan (07/23/2021 10:25 AM EDT): Having minimally symptomatic flutters. Reasonable to review options with EP. - continue toprol 25 - referral to EP already placed for discussion of svt ablation Chest pain 06/13/2021 Assessment & Plan (07/29/2023 9:57 AM EDT): This has been posited historically due to [place]. I posit this is in fact primarily from volume overload on times of presentation. However, the echocardiographic findings of regional wall motion, as well as infarct pattern on MRI, would not line up with this hypothesis. As per prior discussion, she has been referred to the good Dr Mcdaniels who is the local expertise in the aforementioned phenomenon. Looking forward to her insight. For now, will continue empiric treatment for the microvascular disease - ranexa 1g bid - toprol 12.5 (max tolerated) Obesity 06/07/2021 Dyslipidemia 06/07/2021 Obstructive sleep apnea syndrome 04/29/2020 Insomnia 04/29/2020 (HFpEF) heart failure with preserved ejection fr action 04/29/2020 Overview (07/26/2023): 05/2021: subacute, presented to [facility] with RUQ pain, weight gain, and progressive dyspnea. Noted to carry most fluid in abdomen - Multiple echos since then, including 09/2022, without significant finding 02/2023: Preserved EF with anterior HK 04/2023: Preserved EF with increase in HK (some [place] territories) 04/2023 Cath: non-obstructive disease. LVEDP 8 04/2023 CMR: normal EF, anterior HK. There is enhancement in the mid myocardium at the anterior wall 04/2023 PET (sarcoid): no sarcoid. Anterior scar pattern 06/2023: Admission at [facility] ([facility]). TTE with low-normal EF, though anterior HK resolved Assessment & Plan (07/29/2023 9:54 AM EDT): Weight stable, no failure on history/exam. Compreshensive evaluation regarding the cardiac biomarkers has been unremarkable. Most likely due to volume overload at the times of presentation - torsemide 40 bid - metolazone 2.5 QD PRN weight gain + increasing dyspnea - Jardiance 10 - aldactone 25 Assessment & Plan (05/10/2023 3:24 PM EST): This was the main focus of the visit today. We have no significant epicardial CAD, no sarcoid (even though this was the leading possibility based on the CMR), and no concomitant arrhythmias. Will perform rather comprehensive laboratory assessment, and if unremarkable consider referral to the clare Mcdaniels of [facility] expertise IN the meantime, increase torsemide to 40 BID. - KATHRINE - ASO - Lyme Ab's - SPEP, FLC - iron, tibc, ferritin Assessment & Plan (03/22/2023 4:58 PM EST): No failure by history nor exam - torsemide 20 QD - Jardiance 10 - aldactone 25 Assessment & Plan (11/17/2022 9:38 AM EDT): As predicted, much improved breathing and activity level since bumex increased. - continue bumex 2 bid - Jardiance 10 - continue efforts at substrate modification Assessment & Plan (10/08/2022 10:50 PM EDT): Reviewed that although vasospasm seems like an elegant diagnosis to put forth for symptoms, that she has not improved with anti-spasm medications, as well as her shortness of breath continuing (and not being paroxysmal) speaks against it. I think her symptoms remain as they are from volume overload. Will thus increase bumex to 2 bid. She will call next week with weight, UOP, and symptom check Reviewed importance of low sodium diet. Assessment & Plan (07/30/2022 10:15 AM EDT): Appears intravascularly euvolemic today. Will see if we can get the discharge summary and medication administration record from [facility] to see what was given to her to effect UOP positively - Diuresis: bumex 1 qd - Cardioprotection: - SGLT2i: jardiance - MRA: aldactone 25 Assessment & Plan (03/16/2022 3:43 PM EST): Likely with a bit of intravascular hypervolemia, and based on weight trends, likely total body up. Certainly diffuse subendocardial ischemia from elevated LVEDP could cause the presentation; will change lasix to bumex at double equivalent dose. Another possibility is of SCAD (as she fits the demographics for this), though this would be challenging to diagnose unless captured at the time of a presentation. If symptoms do not aravind with adequate diuresis, will perform CCTA - Diuresis: bumex 1 qd - Cardioprotection: - SGLT2i: jardiance - MRA: aldactone 25 Assessment & Plan (07/23/2021 10:24 AM EDT): No failure by history nor exam. - Diuresis: Lasix 20 - Cardioprotection: - SGLT2i: jardiance Restless legs 10/25/2019 Asthma 06/26/2010 Resolved Problems Problem Noted Date Diagnosed Date Resolved Date NSTEMI (non-ST elevated myoc ardial infarction) 06/15/2023 07/29/2023 NSTEMI (non-ST elevated myoc ardial infarction) 04/17/2023 05/06/2023 Left wrist pain 03/18/2023 03/18/2023 Left lateral epicondylitis 03/18/2023 0 03/18/2023 Left facial numbness 03/18/2023 024 Infiltrate of lower lobe of left lung present on imaging study 03/18/2023 03/18/2023 Hx of tubal ligation 03/18/2023 024 Hx of supraventricular tachycardia 03/18/2023 03/18/2023 GERD (gastroesophageal reflux disease) 03/18/2023 03/18/2023 Bilateral renal artery stenosis 03/18/2023 03/18/2023 Bilateral carpal tunnel syndrome 03/18/2023 03/18/2023 NSTEMI (non-ST elevated myoc ardial infarction) 02/08/2023 03/22/2023 NSTEMI (non-ST elevated myoc ardial infarction) 09/26/2022 10/08/2022 Pulmonary embolus 07/30/2022 05/10/2023 Overview (10/08/2022): 07/2022: right upper lobe. Started on eliquis 08/2022 TTE ([facility]): normal bi-v s/f. No significant VHD Assessment & Plan (03/22/2023 4:58 PM EST): No issues - eliquis 5 bid. This can be held for ablation 2 days prior and restarted as per EP guidance Assessment & Plan (11/17/2022 9:42 AM EDT): Met with vascular medicine; because PE is unprovoked, have recommended indefinite OAC - eliquis 5 bid. This can be held for completion of tattoo for 2 days prior and restarting next day. Assessment & Plan (07/30/2022 10:11 AM EDT): At this time, appears unprovoked. Will refer to vascular medicine for further consideration of hypercoagulability evaluation. Will also obtain echocardiogram to evaluate pulmonary pressure and right ventricular size/function - TTE NSTEMI (non-ST elevated myoc ardial infarction) 12/30/2021 03/16/2022 Pulmonary hypertension, mild 06/09/2021 07/23/2021 Elevated blood pressure read ing without diagnosis of hypertension 06/07/2021 07/23/2021 Non-ST elevation SD (NSTEMI) 08/29/2019 03/16/2022 Rhinitis, nonallergic, chronic 06/26/2010 07/30/2022 Encounters Date Type Department Care Team Description 08/28/2023 8:27 PM EDT - 09/10/2023 5:31 PM EDT Hospital Encounter Heart and Vascular Unit Level 3 Wing B at [place] [phone] Kia Angelo MD Etiwy, Muhammad, MD Ramachandra, Nayana, MD Callahan, Megan B, MD Campbell, Emily Y, MD Kussaga, Lloyd Gray MD Paresthesia of hand, bilateral; SVT (supraventricular tachycardia); Acute on chronic heart failure with preserved ejection fraction; Non-ST elevation myocardial infarction (NSTEMI); NSTEMI (non-ST elevated myocardial infarction); Heart failure with preserved ejection fraction, unspecified HF chronicity; Hypokalemia Discharge Disposition: Home 08/28/2023 1:05 PM EDT Ancillary Procedure Radiology Library at [place] [phone] Jaspreet Kinsey MD 08/28/2023 [place] [address] Ciro Lovell MD 08/28/2023 [place] [address] 08/25/2023 1:05 PM EDT Laboratory Appointment Lab 3L [place] [phone] Heart failure with preserved ejection fraction, unspecified HF chronicity; Chronic kidney disease, unspecified CKD stage; Altered bowel function; Depression, unspecified depression type 08/25/2023 12:55 PM EDT Laboratory Appointment Lab [address] [place] [address] 08/25/2023 10:00 AM EDT Office Visit Gastroenterology at [place] [phone] Mary Reyes APRN Altered bowel function; Depression, unspecified depression type; Gastroesophageal reflux disease, unspecified whether esophagitis present; Esophageal dysphagia; Nausea without vomiting; Early satiety 08/25/2023 Travel 08/17/2023 11:53 AM EDT - 08/17/2023 11:59 PM EDT Hospital Encounter Non-[place] [phone] Porsha Mcdaniels MD Chest pain, unspecified type Discharge Disposition: Home 08/17/2023 11:52 AM EDT Hospital Encounter [place] [phone] Porsha Mcdaniels MD Chest pain, unspecified type Discharge Disposition: Home 08/17/2023 Travel 08/03/2023 9:30 AM EDT Office [place] [phone] Judith Butler APRN Mesenteric ischemia 08/03/2023 8:30 AM EDT Tech [place] [phone] Eladio Boyer Mesenteric ischemia 08/03/2023 Travel 07/29/2023 8:00 AM EDT Office Visit Cardiology at [address] [phone] Porsha Mcdaniels MD Chest pain, unspecified type 07/29/2023 Travel 07/26/2023 3:20 PM EDT Office Visit Cardiology at [address] [phone] Jaspreet Kinsey MD Heart failure with preserved ejection fraction, unspecified HF chronicity; Paroxysmal atrial fibrillation; SVT (supraventricular tachycardia); Chest pain, unspecified type 07/26/2023 Travel 07/13/2023 Telephone Cardiology at [address] [phone] Sydney Gamez RN 07/12/2023 Refill Cardiology at [address] [phone] Jaspreet Kinsey MD 07/08/2023 [place] [phone] Porsha San MD Chronic abdominal pain 07/07/2023 2:05 PM EDT Anesthesia Event Gastroenterology at [place] [phone] Constantine Velez MD 07/07/2023 1:00 PM EDT - 07/07/2023 2:00 PM EDT Surgery Gastroenterology at [place] [phone] Lashonda Villa MD EGD WITH BIOPSY (WRVU 2.39) 07/02/2023 10:10 AM EDT - 07/02/2023 11:59 PM EDT Hospital Encounter Radiology at [place] [phone] Discharge Disposition: Home 06/28/2023 Orders Only Vascular Surgery at [address] [phone] Mamie Marx, ROM Mesenteric ischemia 06/22/2023 Travel 06/14/2023 11:01 PM EDT - 07/09/2023 4:44 PM EDT Hospital Encounter Heart and Vascular Unit Level 4 Wing B at [place] [phone] Jaspreet Kinsey MD Ruiz, MD Min Randall Nayana, MD Battula, MD Zuri Hoyt Frank M, MD Paroxysmal atrial fibrillation; Chest pain, unspecified type; NSTEMI (non-ST elevated myocardial infarction); Lower abdominal pain; Mesenteric artery stenosis; Heart failure with preserved ejection fraction, unspecified HF chronicity; Chronic kidney disease, unspecified CKD stage Discharge Disposition: Home with VNA from Last 3 Months Family History Medical History Relation Comments Arrhythmia Father Coronary Artery Disease Father Heart Surgery Father Myocardial Infarction Father Hypertension Mother Stomach Cancer Other Relation Status Comments Brother Alive Father Mother Alive Other Social History Tobacco Use Types Packs/Day Years Used Date Smoking Tobacco: Never Smokeless Tobacco: Never Alcohol Use Standard Drinks/Week Comments Never 0 (1 standard drink = 0.6 oz pur e alcohol) [facility] Utilities Answer Date Recorded In the past 12 months has e [email or web address], gas, oil, or water company threatened to shut off services in your home? No 08/30/2023 Hunger Vital Sign Answer Date Recorded Within the past 12 months, y ou worried that your food would run out before you got the money to buy more. Never true 08/30/19 24 Within the past 12 months, t he food you bought just didn't last and you didn't have money to get more. Never true 08/30/2023 PRAPARE - Transportation Answer Date Re corded In the past 12 months, has l ack of transportation kept you from medical appointments or from getting medications? No 08/07 In the past 12 months, has l ack of transportation kept you from meetings, work, or from getting things needed for daily living? No 08/30/2023 Housing Stability Vital Sign Answer Mitchell e Recorded In the last 12 months, was t here a time when you were not able to pay the mortgage or rent on time? Yes 06/15/2023 In the last 12 months, how many places have you lived? 1 06/15/2023 In the last 12 months, was t here a time when you did not have a steady place to sleep or slept in a mcfp (including now)? No 06/15/2023 Housing Stability Vital Sign Answer Mitchell e Recorded In the last 12 months, was t here a time when you were not able to pay the mortgage or rent on time? No 08/30/2023 In the past 12 months, how m any times have you moved where you were living? 1 08/30/2023 At any time in the past 12 m [place], were you homeless or living in a mcfp (including now)? No 08/30/2023 DH IPV Inpatient Questions Answer Date Recorded Does Anyone Try to Keep You From Having Contact with Others or Doing Things Outside Your Home? no 08/28/2023 Feels Threatened by Someone no 08/07 Feels Unsafe at Home or Work/School no 08/28/2023 Physical Signs of Abuse Present no 08/28/2023 Sex and Gender Information Value Date Recorded Sex Assigned at Not on file Gender Identity Not on file Sexual Orientation Not on file Last Filed Vital Signs Vital Sign Reading Time Taken Comments Blood Pressure 93/47 09/10/2023 12:09 PM EDT Pulse 49 09/10/2023 12:09 PM EDT Temperature 37.1 ??C (98.8 ??F) 09/10/2023 1 2:09 PM EDT Respiratory Rate 18 09/10/2023 12:0 9 PM EDT Oxygen Saturation 99% 09/10/2023 12: 09 PM EDT Inhaled Oxygen Concentration - - Weight 101.2 kg (223 lb 1.6 oz) 09/10/2023 6:31 AM EDT Height 162.6 cm (5' 4) 08/28/2023 8:34 PM EDT Body Mass Index 38.3 08/28/2023 8:34 PM EDT Plan of Treatment Upcoming Encounters Date Type Department Care Team (Late st Contact Info) Description 10/08/2023 8:30 AM EDT Tech [place] [phone] Jose Cook 10/08/2023 9:30 AM EDT Office [place] [phone] MD [facility] [place] [address] 10/21/2023 10:30 AM EDT Appointment [place] [phone] Mary Reyes APRN [facility] [place] [address] 10/21/2023 11:30 AM EDT Appointment [place] [phone] Mary Reyes APRN [facility] [place] [address] 10/21/2023 12:30 PM EDT Appointment [place] [phone] Mary Reyes APRN [facility] [place] [address] 10/21/2023 1:30 PM EDT Appointment Nuclear Medicine at [place] [phone] Mary Reyes DOG LICENSE OFFICER SUPERVISOR [facility] [place] [address] 10/21/2023 2:30 PM EDT Appointment [place] [phone] [address] [facility] [place] [address] 10/26/2023 4:00 PM EDT Office Visit Cardiology at [address] [phone] Jaspreet Kinsey MD [facility] [place] [address] 10/28/2023 9:00 AM EDT Office [place] [address] 10/29/2023 10:00 AM EDT Clinical Support [place] [address] 10/29/2023 10:15 AM EDT Procedure [place] [address] 11/01/2023 5:00 PM EDT Office [place] [phone] Selene Browning, PhD [facility] [place] [address] 11/22/2023 4:40 PM EDT Office Visit Cardiology at [address] [phone] Porsha Mcdaniels MD [facility] [place] [address] 12/13/2023 10:00 AM EDT Clinical [place] [phone] [facility] [place] [address] Health Maintenance Due Date Last Done Comments CT Colonography 1969 FIT DNA 1969 FIT 1969 Sigmoidoscopy 1969 Pneumococcal Vaccine: At-Ris k 5-64yrs (1 of 2 - PCV) 1975 HIV screen 1987 Hepatitis C Screening 1987 Hepatitis B vaccine (0-59 yr s) (1) 1988 Tdap adult 1988 Tetanus vaccine 1988 HPV test 1999 PAP Smear 1999 Breast Cancer Share Decision Needed 2009 Breast Cancer screening 2009 Zoster vaccine (1 of 2) 2019 Covid-19 Vaccine (3 - 2022-2 4 season) 2022 04/03/2020, 03/06/2020 Influenza (Flu) vaccine (1 o f 1 - Influenza standard series) 11/07/2023 Diabetes Screening (HgbA1C o r Glucose) 09/09/2026 09/10/2023, 09/09/2023, 09/08/2023, Additional history exists Colonoscopy 07/06/2033 07/07/2023, 07/07/2023 Colorectal Cancer Screening 07/06/2033 Sigmoidoscopy (10 year) with FIT yearly 07/06/2033 07/07/2023, 07/07/2023 Lipid Screening Discontinued 08/28/2023, 06/06, 04/18/2023, Additional history exists Medical Devices Implanted Type Area Remote Sensing Analyst Device Identifier Shelf Expiration Date Model / Serial / Lot Stent Graft [id number] cm Il Viabahn Vbx ([id number]) ([employer])-4/08/2023 Implanted:Qty : 1 on 07/02/[address] MD IMPLANTS [employer] - [employer] AN [id number] / / [id number] Description:sma stent placem ent Procedures Procedure Name Priority Date/Time Associated Diagnosis Comments SCAN DOC: TELEMETRY STRIPS 09/10/2023 8:40 AM EDT SCAN DOC: TELEMETRY STRIPS 09/10/2023 7:11 AM EDT DIFFERENTIAL, AUTOMATED Routine 09/10/19 4:17 AM EDT HEMOGRAM Routine 09/10/2023 4:17 AM EDT HC CBC,PLT & AUTO DIFF Routine 4:17 AM EDT BASIC METABOLIC PANEL (NON-FASTING) Routine 09/10/2023 4:17 AM EDT HC VENIPUNCTURE Routine 09/10/2023 4:17 AM EDT SCAN DOC: TELEMETRY STRIPS 09/09/2023 7:32 PM EDT SCAN DOC: TELEMETRY STRIPS 09/09/2023 8:15 AM EDT SCAN DOC: TELEMETRY STRIPS 09/09/2023 7:24 AM EDT DIFFERENTIAL, AUTOMATED Routine 09/09/19 5:10 AM EDT HEMOGRAM Routine 09/09/2023 5:10 AM EDT HC CBC,PLT & AUTO DIFF Routine 5:10 AM EDT BASIC METABOLIC PANEL (NON-FASTING) Routine 09/09/2023 5:10 AM EDT HC MAGNESIUM, SERUM Routine 09/09/2023 5 :10 AM EDT SCAN DOC: TELEMETRY STRIPS 09/08/2023 11:00 PM EDT SCAN DOC: TELEMETRY STRIPS 09/08/2023 7:56 PM EDT SCAN DOC: TELEMETRY STRIPS 09/08/2023 7:57 AM EDT SCAN DOC: TELEMETRY STRIPS 09/08/2023 7:32 AM EDT SCAN DOC: TELEMETRY STRIPS 09/08/2023 7:30 AM EDT EKG 12-LEAD Routine 09/08/2023 4:01 AM EDT Paresthesia of hand, bilateral SVT (supraventricular tachycardia) Acute on chronic heart failure with preserved ejection fraction DIFFERENTIAL, AUTOMATED Routine 09/08/19 2:22 AM EDT HEMOGRAM Routine 09/08/2023 2:22 AM EDT HC CBC,PLT & AUTO DIFF Routine 2:22 AM EDT BASIC METABOLIC PANEL (NON-FASTING) Routine 09/08/2023 2:22 AM EDT HC VENIPUNCTURE Routine 09/08/2023 2:22 AM EDT SCAN DOC: TELEMETRY STRIPS 09/07/2023 8:31 PM EDT SCAN DOC: TELEMETRY STRIPS 09/07/2023 12:02 PM EDT SCAN DOC: TELEMETRY STRIPS 09/07/2023 8:06 AM EDT SCAN DOC: TELEMETRY STRIPS 09/07/2023 7:41 AM EDT SCAN DOC: TELEMETRY STRIPS 09/07/2023 7:41 AM EDT SCAN DOC: TELEMETRY STRIPS 09/07/2023 7:41 AM EDT DIFFERENTIAL, AUTOMATED Routine 09/07/19 2:56 AM EDT HEMOGRAM Routine 09/07/2023 2:56 AM EDT HC CBC,PLT & AUTO DIFF Routine 2:56 AM EDT BASIC METABOLIC PANEL (NON-FASTING) Routine 09/07/2023 2:56 AM EDT HC MAGNESIUM, SERUM Routine 09/07/2023 2 :56 AM EDT SCAN DOC: TELEMETRY STRIPS 09/06/2023 11:05 PM EDT SCAN DOC: TELEMETRY STRIPS 09/06/2023 10:11 AM EDT SCAN DOC: TELEMETRY STRIPS 09/06/2023 8:29 AM EDT SCAN DOC: TELEMETRY STRIPS 09/06/2023 8:17 AM EDT DIFFERENTIAL, AUTOMATED Routine 09/06/19 2:44 AM EDT HEMOGRAM Routine 09/06/2023 2:44 AM EDT HC CBC,PLT & AUTO DIFF Routine 2:44 AM EDT BASIC METABOLIC PANEL (NON-FASTING) Routine 09/06/2023 2:44 AM EDT HC VENIPUNCTURE Routine 09/06/2023 2:44 AM EDT SCAN DOC: TELEMETRY STRIPS 09/05/2023 8:[address] ABDOMEN AND PELVIS W CONTRAST Routine 09/05/2023 4:25 PM EDT SCAN DOC: TELEMETRY STRIPS 09/05/2023 7:48 AM EDT SCAN DOC: TELEMETRY STRIPS 09/05/2023 7:34 AM EDT DIFFERENTIAL, AUTOMATED Routine 09/05/19 24 1:58 AM EDT HEMOGRAM Routine 09/05/2023 1:58 AM EDT MISCELLANEOUS LAB REQUEST Routine 09/05/2023 1:58 AM EDT HC IGG 4 Routine 09/05/2023 1:58 AM EDT HC CBC,PLT & AUTO DIFF Routine 1:58 AM EDT BASIC METABOLIC PANEL (NON-FASTING) Routine 09/05/2023 1:58 AM EDT HC VENIPUNCTURE Routine 09/05/2023 1:58 AM EDT SCAN DOC: TELEMETRY STRIPS 09/04/2023 7:58 PM EDT BASIC METABOLIC PANEL (NON-FASTING) Routine 09/04/2023 2:11 PM EDT SCAN DOC: TELEMETRY STRIPS 09/04/2023 1:10 PM EDT SCAN DOC: TELEMETRY STRIPS 09/04/2023 11:11 AM EDT SCAN DOC: TELEMETRY STRIPS 09/04/2023 9:41 AM EDT HC VENIPUNCTURE Routine 09/04/2023 9:13 AM EDT HC POTASSIUM Routine 09/04/2023 4:25 AM EDT DIFFERENTIAL, AUTOMATED Routine 09/04/19 3:03 AM EDT HEMOGRAM Routine 09/04/2023 3:03 AM EDT HC CBC,PLT & AUTO DIFF Routine 3:03 AM EDT BASIC METABOLIC PANEL (NON-FASTING) Routine 09/04/2023 3:03 AM EDT HC VENIPUNCTURE Routine 09/04/2023 3:03 AM EDT SCAN DOC: TELEMETRY STRIPS 09/03/2023 7:39 PM EDT SCAN DOC: TELEMETRY STRIPS 09/03/2023 8:34 AM EDT SCAN DOC: TELEMETRY STRIPS 09/03/2023 8:24 AM EDT EKG 12-LEAD Routine 09/03/2023 6:02 AM EDT EKG 12-LEAD STAT 09/03/2023 6:02 AM EDT Non-ST elevation myocardial infarction (NSTEMI) EKG 12-LEAD STAT 09/03/2023 3:05 AM EDT Non-ST elevation myocardial infarction (NSTEMI) DIFFERENTIAL, AUTOMATED Routine 09/03/19 2:39 AM EDT HEMOGRAM Routine 09/03/2023 2:39 AM EDT HC SERUM PROT. ELECTROPHORESIS Routine 09/03/2023 2:39 AM EDT HC CBC,PLT & AUTO DIFF Routine 2:39 AM EDT BASIC METABOLIC PANEL (NON-FASTING) Routine 09/03/2023 2:39 AM EDT HC MAGNESIUM, SERUM Routine 09/03/2023 2 :39 AM EDT SCAN DOC: TELEMETRY STRIPS 09/02/2023 11:18 PM EDT HC RANDOM URINE PEP Routine 09/02/2023 9 :30 PM EDT HC VENIPUNCTURE STAT 09/02/2023 8:16 PM EDT SCAN DOC: TELEMETRY STRIPS 09/02/2023 7:22 PM EDT SCAN DOC: TELEMETRY STRIPS 09/02/2023 7:22 PM EDT HC PROBNP Routine 09/02/2023 5:05 PM EDT HC TROPONIN T STAT 09/02/2023 5:05 PM EDT EKG 12-LEAD STAT 09/02/2023 2:42 PM EDT Non-ST elevation myocardial infarction (NSTEMI) EKG 12-LEAD Routine 09/02/2023 2:09 PM EDT HC TROPONIN T STAT 09/02/2023 9:05 AM EDT SCAN DOC: TELEMETRY STRIPS 09/02/2023 7:25 AM EDT EKG 12-LEAD Routine 09/02/2023 6:42 AM EDT DIFFERENTIAL, AUTOMATED Routine 09/02/19 3:18 AM EDT HEMOGRAM Routine 09/02/2023 3:18 AM EDT HC TROPONIN T STAT 09/02/2023 3:18 AM EDT HC CBC,PLT & AUTO DIFF Routine 3:18 AM EDT BASIC METABOLIC PANEL (NON-FASTING) Routine 09/02/2023 3:18 AM EDT HC VENIPUNCTURE Routine 09/02/2023 3:18 AM EDT EKG 12-LEAD Routine 09/02/2023 2:29 AM EDT SCAN DOC: TELEMETRY STRIPS 09/01/2023 9:05 PM EDT SCAN DOC: TELEMETRY STRIPS 09/01/2023 6:06 PM EDT EKG 12-LEAD Routine 09/01/2023 10:32 AM EDT SCAN DOC: TELEMETRY STRIPS 09/01/2023 7:58 AM EDT SCAN DOC: TELEMETRY STRIPS 09/01/2023 7:26 AM EDT DIFFERENTIAL, AUTOMATED Routine 09/01/19 3:08 AM EDT HEMOGRAM Routine 09/01/2023 3:08 AM EDT HC CBC,PLT & AUTO DIFF Routine 3:08 AM EDT BASIC METABOLIC PANEL (NON-FASTING) Routine 09/01/2023 3:08 AM EDT HC MAGNESIUM, SERUM Routine 09/01/2023 3 :08 AM EDT SCAN DOC: TELEMETRY STRIPS 08/31/2023 7:40 PM EDT HC MAGNESIUM, SERUM Routine 08/31/2023 5 :03 PM EDT HC PHOSPHORUS, SERUM Routine 08/31/2023 5:03 PM EDT BASIC METABOLIC PANEL (NON-FASTING) Routine 08/31/2023 5:03 PM EDT SCAN DOC: TELEMETRY STRIPS 08/31/2023 1:06 PM EDT SCAN DOC: TELEMETRY STRIPS 08/31/2023 7:21 AM EDT SCAN DOC: TELEMETRY STRIPS 08/31/2023 3:14 AM EDT DIFFERENTIAL, AUTOMATED Routine 08/31/19 2:18 AM EDT HEMOGRAM Routine 08/31/2023 2:18 AM EDT HC MAGNESIUM, SERUM Routine 08/31/2023 2 :18 AM EDT BASIC METABOLIC PANEL (NON-FASTING) Routine 08/31/2023 2:18 AM EDT HC VENIPUNCTURE Routine 08/31/2023 2:18 AM EDT SCAN DOC: TELEMETRY STRIPS 08/30/2023 7:25 PM EDT SCAN DOC: TELEMETRY STRIPS 08/30/2023 7:25 PM EDT SCAN DOC: TELEMETRY STRIPS 08/30/2023 11:33 AM EDT SCAN DOC: TELEMETRY STRIPS 08/30/2023 7:40 AM EDT SCAN DOC: TELEMETRY STRIPS 08/30/2023 7:18 AM EDT DIFFERENTIAL, AUTOMATED Routine 08/30/19 3:09 AM EDT HEMOGRAM Routine 08/30/2023 3:09 AM EDT HC UNFRACTIONATED HEPARIN (HEP UFH) Timed 08/30/2023 3:09 AM EDT HC MAGNESIUM, SERUM Routine 08/30/2023 3 :09 AM EDT BASIC METABOLIC PANEL (NON-FASTING) Routine 08/30/2023 3:09 AM EDT HC CBC,PLT & AUTO DIFF Routine 3:09 AM EDT SCAN DOC: TELEMETRY STRIPS 08/29/2023 10:55 PM EDT SCAN DOC: TELEMETRY STRIPS 08/29/2023 7:59 PM EDT HC UNFRACTIONATED HEPARIN (HEP UFH) Timed 08/29/2023 5:49 PM EDT EKG 12-LEAD Routine 08/29/2023 3:05 PM EDT Non-ST elevation myocardial infarction (NSTEMI) HC UNFRACTIONATED HEPARIN (HEP UFH) Timed 08/29/2023 11:48 AM EDT ECHO LMTD W CONTRAST W LMTD SPEC DOPP COLOR DOPP Routine 08/29/2023 11:35 AM EDT Non-ST elevation myocardial infarction (NSTEMI) SCAN DOC: TELEMETRY STRIPS 08/29/2023 8:03 AM EDT EKG 12-LEAD Routine 08/29/2023 6:04 AM EDT Non-ST elevation myocardial infarction (NSTEMI) CRP, ACUTE INFLAMMATION Routine 08/29/19 4:01 AM EDT SEDIMENTATION RATE Routine 08/29/2023 4: 01 AM EDT GREEN TUBE HOLD Routine 08/29/2023 4:01 AM EDT DIFFERENTIAL, AUTOMATED Routine 08/29/19 4:01 AM EDT HEMOGRAM Routine 08/29/2023 4:01 AM EDT HC UNFRACTIONATED HEPARIN (HEP UFH) Timed 08/29/2023 4:01 AM EDT BASIC METABOLIC PANEL (NON-FASTING) Routine 08/29/2023 4:01 AM EDT HC VENIPUNCTURE Routine 08/29/2023 4:01 AM EDT HC VENIPUNCTURE STAT 08/29/2023 12:31 AM EDT SCAN DOC: TELEMETRY STRIPS 08/28/2023 9:15 PM EDT DIFFERENTIAL, AUTOMATED STAT 08/28/19 9:07 PM EDT HEMOGRAM STAT 08/28/2023 9:07 PM EDT HC UNFRACTIONATED HEPARIN (HEP UFH) Timed 08/28/2023 9:07 PM EDT LIPID PANEL (REFLEX DIRECT LDL) Routine 08/28/2023 9:07 PM EDT HC PROBNP Routine 08/28/2023 9:07 PM EDT HC TROPONIN T STAT 08/28/2023 9:07 PM EDT HEPATIC FUNCTION PANEL Routine 9:07 PM EDT HC CBC,PLT & AUTO DIFF STAT 9:07 PM EDT BASIC METABOLIC PANEL (NON-FASTING) STAT 08/28/2023 9:07 PM EDT HC MAGNESIUM, SERUM STAT 08/28/2023 9 :07 PM EDT FILM LIBRARY STORAGE ONLY CT CHEST Routine 08/28/2023 1:00 PM EDT ECG SCAN Routine 08/28/2023 11:53 AM EDT HC IGA, SERUM Routine 08/25/2023 11:28 AM EDT Altered bowel function Depression, unspecified depression type HC IGG, SERUM Routine 08/25/2023 11:28 AM EDT Altered bowel function Depression, unspecified depression type HC TISSUE TRANSGLUTAMINASE AB Routine 08/25/2023 11:28 AM EDT Altered bowel function Depression, unspecified depression type BASIC METABOLIC PANEL (NON-FASTING) Routine 08/25/2023 11:28 AM EDT Chronic kidney disease, unspecified CKD stage HC DNA AB DS (TA[place]CROSS) Routine 08/25/2023 11:28 AM EDT Heart failure with preserved ejection fraction, unspecified HF chronicity HC SERUM PROT. ELECTROPHORESIS Routine 08/25/2023 11:28 AM EDT Heart failure with preserved ejection fraction, unspecified HF chronicity HC IMMUNOGLOBULIN FREE LIGHT CHAINS, SERUM Routine 08/25/2023 11:28 AM EDT Heart failure with preserved ejection fraction, unspecified HF chronicity HC IRON BINDING CAPACITY Routine 024 11:28 AM EDT Heart failure with preserved ejection fraction, unspecified HF chronicity HC FERRITIN, SERUM Routine 08/25/2023 11 :28 AM EDT Heart failure with preserved ejection fraction, unspecified HF chronicity HC LYME TOTAL (SCREEN) Routine 11:28 AM EDT Heart failure with preserved ejection fraction, unspecified HF chronicity HC PCH STRETOCOCCAL ANTIBIODIES Routine 08/25/2023 11:28 AM EDT Heart failure with preserved ejection fraction, unspecified HF chronicity NM PET CT CARDIAC PHARMACOLOGIC STRESS CT COMPONENT Routine 08/17/2023 2:38 PM EDT Chest pain, unspecified type NM PET CT CARDIAC PHARMACOLOGIC STRESS Routine 08/17/2023 2:38 PM EDT Chest pain, unspecified type NUCLEAR PHARMACOLOGIC STRESS CARDIOLOGY (PET CT MOBILE) Routine 08/17/2023 2:17 PM EDT Chest pain, unspecified type MESENTERIC COMPLETE Routine 08/03/2023 8 :36 AM EDT Mesenteric ischemia EKG 12-LEAD Routine 07/29/2023 8:47 AM EDT Chest pain, unspecified type EKG 12-LEAD Routine 07/26/2023 3:57 PM EDT SCAN DOC: TELEMETRY STRIPS 07/09/2023 8:28 AM EDT SCAN DOC: TELEMETRY STRIPS 07/09/2023 3:04 AM EDT DIFFERENTIAL, AUTOMATED Routine 07/09/19 24 3:03 AM EDT HEMOGRAM Routine 07/09/2023 3:03 AM EDT HC UNFRACTIONATED HEPARIN (HEP UFH) Timed 07/09/2023 3:03 AM EDT BASIC METABOLIC PANEL (NON-FASTING) Routine 07/09/2023 3:03 AM EDT HC PHOSPHORUS, SERUM Routine 07/09/2023 3:03 AM EDT HC MAGNESIUM, SERUM Routine 07/09/2023 3 :03 AM EDT HC CBC,PLT & AUTO DIFF Routine 3:03 AM EDT SCAN DOC: TELEMETRY STRIPS 07/08/2023 8:51 PM EDT SCAN DOC: TELEMETRY STRIPS 07/08/2023 7:39 PM EDT SCAN DOC: TELEMETRY STRIPS 07/08/2023 12:50 PM EDT HC UNFRACTIONATED HEPARIN (HEP UFH) Timed 07/08/2023 12:02 PM EDT EKG 12-LEAD STAT 07/08/2023 9:58 AM EDT Paroxysmal atrial fibrillation SCAN DOC: TELEMETRY STRIPS 07/08/2023 8:00 AM EDT DIFFERENTIAL, AUTOMATED Routine 07/08/19 5:52 AM EDT HEMOGRAM Routine 07/08/2023 5:52 AM EDT HC UNFRACTIONATED HEPARIN (HEP UFH) Timed 07/08/2023 5:52 AM EDT BASIC METABOLIC PANEL (NON-FASTING) Routine 07/08/2023 5:52 AM EDT HC PHOSPHORUS, SERUM Routine 07/08/2023 5:52 AM EDT HC MAGNESIUM, SERUM Routine 07/08/2023 5 :52 AM EDT HC CBC,PLT & AUTO DIFF Routine 5:52 AM EDT HC UNFRACTIONATED HEPARIN (HEP UFH) Timed 07/08/2023 12:00 AM EDT SCAN DOC: TELEMETRY STRIPS 07/07/2023 11:20 PM EDT SCAN DOC: TELEMETRY STRIPS 07/07/2023 8:49 PM EDT SCAN DOC: TELEMETRY STRIPS 07/07/2023 8:41 PM EDT SPECIMEN TO PATHOLOGY Routine 07/07/2023 2:55 PM EDT SPECIMEN TO PATHOLOGY Routine 07/07/2023 2:38 PM EDT SPECIMEN TO PATHOLOGY Routine 07/07/2023 2:38 PM EDT SURGICAL PATHOLOGY REPORT Routine 07/07/2023 2:25 PM EDT Colonoscopy, Biopsy ([id number]) 07/07/2023 2:10 PM EDT post prandial pain Upper Gi Endoscopy, Biopsy ([id number]) 07/07/2023 2:10 PM EDT post prandial pain UPPER GI ENDOSCOPY Routine 07/07/2023 1: 40 PM EDT COLONOSCOPY Routine 07/07/2023 1:39 PM EDT SHIGA TOXIN ASSAY Routine 07/07/2023 12: 10 PM EDT CAMPYLOBACTER ANTIGEN Routine 07/07/2023 12:10 PM EDT STOOL CULTURE Routine 07/07/2023 12:10 PM EDT SCAN DOC: TELEMETRY STRIPS 07/07/2023 8:29 AM EDT SCAN DOC: TELEMETRY STRIPS 07/07/2023 7:44 AM EDT DIFFERENTIAL, AUTOMATED Routine 07/07/19 3:51 AM EDT HEMOGRAM Routine 07/07/2023 3:51 AM EDT HC UNFRACTIONATED HEPARIN (HEP UFH) Timed 07/07/2023 3:51 AM EDT HEPATIC FUNCTION PANEL Routine 3:51 AM EDT BASIC METABOLIC PANEL (NON-FASTING) Routine 07/07/2023 3:51 AM EDT HC PHOSPHORUS, SERUM Routine 07/07/2023 3:51 AM EDT HC MAGNESIUM, SERUM Routine 07/07/2023 3 :51 AM EDT HC VENIPUNCTURE Routine 07/07/2023 3:51 AM EDT HC GIARDIA ANTIGEN VAIBHAV METHOD Routine 07/07/2023 12:38 AM EDT SCAN DOC: TELEMETRY STRIPS 07/06/2023 11:30 PM EDT SCAN DOC: TELEMETRY STRIPS 07/06/2023 8:29 PM EDT SCAN DOC: TELEMETRY STRIPS 07/06/2023 7:32 PM EDT HC VENIPUNCTURE Routine 07/06/2023 3:41 PM EDT SCAN DOC: TELEMETRY STRIPS 07/06/2023 8:00 AM EDT HEPATIC FUNCTION PANEL Routine 3:54 AM EDT DIFFERENTIAL, AUTOMATED Routine 07/06/19 24 3:54 AM EDT HEMOGRAM Routine 07/06/2023 3:54 AM EDT BASIC METABOLIC PANEL (NON-FASTING) Routine 07/06/2023 3:54 AM EDT HC PHOSPHORUS, SERUM Routine 07/06/2023 3:54 AM EDT HC MAGNESIUM, SERUM Routine 07/06/2023 3 :54 AM EDT HC CBC,PLT & AUTO DIFF Routine 3:54 AM EDT HC UNFRACTIONATED HEPARIN (HEP UFH) Timed 07/06/2023 3:54 AM EDT SCAN DOC: TELEMETRY STRIPS 07/05/2023 8:02 PM EDT HC AMYLASE Routine 07/05/2023 5:44 PM EDT HC LIPASE Routine 07/05/2023 5:44 PM EDT BASIC METABOLIC PANEL (NON-FASTING) Routine 07/05/2023 5:44 PM EDT MESENTERIC COMPLETE STAT 07/05/2023 9 :46 AM EDT Mesenteric artery stenosis SCAN DOC: TELEMETRY STRIPS 07/05/2023 8:04 AM EDT DIFFERENTIAL, AUTOMATED Routine 07/05/19 24 5:05 AM EDT HEMOGRAM Routine 07/05/2023 5:05 AM EDT HC VENIPUNCTURE Timed 07/05/2023 5:05 AM EDT BASIC METABOLIC PANEL (NON-FASTING) Routine 07/05/2023 5:05 AM EDT HC PHOSPHORUS, SERUM Routine 07/05/2023 5:05 AM EDT HC MAGNESIUM, SERUM Routine 07/05/2023 5 :05 AM EDT HC CBC,PLT & AUTO DIFF Routine 5:05 AM EDT SCAN DOC: TELEMETRY STRIPS 07/04/2023 8:46 PM EDT EKG 12-LEAD STAT 07/04/2023 11:41 AM EDT Paroxysmal atrial fibrillation SCAN DOC: TELEMETRY STRIPS 07/04/2023 8:58 AM EDT DIFFERENTIAL, AUTOMATED Routine 07/04/19 24 3:47 AM EDT HEMOGRAM Routine 07/04/2023 3:47 AM EDT HC VENIPUNCTURE Timed 07/04/2023 3:47 AM EDT BASIC METABOLIC PANEL (NON-FASTING) Routine 07/04/2023 3:47 AM EDT HC PHOSPHORUS, SERUM Routine 07/04/2023 3:47 AM EDT HC MAGNESIUM, SERUM Routine 07/04/2023 3 :47 AM EDT HC CBC,PLT & AUTO DIFF Routine 4 3:47 AM EDT EKG 12-LEAD STAT 07/03/2023 9:36 PM EDT Paroxysmal atrial fibrillation SCAN DOC: TELEMETRY STRIPS 07/03/2023 8:08 PM EDT HC MAGNESIUM, SERUM Routine 07/03/2023 6 :00 PM EDT BASIC METABOLIC PANEL (NON-FASTING) Routine 07/03/2023 6:00 PM EDT XR CHEST ONE VIEW Routine 07/03/2023 3:1 8 PM EDT EKG 12-LEAD Routine 07/03/2023 2:27 PM EDT SCAN DOC: TELEMETRY STRIPS 07/03/2023 10:21 AM EDT ARTERIAL DUPLEX LEG UNILA Routine 07/03/2023 9:34 AM EDT Mesenteric artery stenosis SCAN DOC: TELEMETRY STRIPS 07/03/2023 7:40 AM EDT DIFFERENTIAL, AUTOMATED Routine 07/03/19 3:07 AM EDT HEMOGRAM Routine 07/03/2023 3:07 AM EDT HC UNFRACTIONATED HEPARIN (HEP UFH) Timed 07/03/2023 3:07 AM EDT BASIC METABOLIC PANEL (NON-FASTING) Routine 07/03/2023 3:07 AM EDT HC PHOSPHORUS, SERUM Routine 07/03/2023 3:07 AM EDT HC MAGNESIUM, SERUM Routine 07/03/2023 3 :07 AM EDT HC CBC,PLT & AUTO DIFF Routine 3:07 AM EDT HC VENIPUNCTURE Timed 07/02/2023 8:58 PM EDT SCAN DOC: TELEMETRY STRIPS 07/02/2023 7:44 PM EDT VS ARTERIOGRAM MESENTERIC VASCULAR SURGERY Routine 07/02/2023 1:32 PM EDT SCAN DOC: TELEMETRY STRIPS 07/02/2023 8:19 AM EDT SCAN DOC: TELEMETRY STRIPS 07/02/2023 7:52 AM EDT DIFFERENTIAL, AUTOMATED Routine 07/02/19 3:58 AM EDT HEMOGRAM Routine 07/02/2023 3:58 AM EDT HC UNFRACTIONATED HEPARIN (HEP UFH) Timed 07/02/2023 3:58 AM EDT BASIC METABOLIC PANEL (NON-FASTING) Routine 07/02/2023 3:58 AM EDT HC PHOSPHORUS, SERUM Routine 07/02/2023 3:58 AM EDT HC MAGNESIUM, SERUM Routine 07/02/2023 3 :58 AM EDT HC VENIPUNCTURE Routine 07/02/2023 3:58 AM EDT SCAN DOC: TELEMETRY STRIPS 07/01/2023 7:55 PM EDT SCAN DOC: TELEMETRY STRIPS 07/01/2023 7:40 PM EDT SCAN DOC: TELEMETRY STRIPS 07/01/2023 12:33 PM EDT EKG 12-LEAD Routine 07/01/2023 12:08 PM EDT Chest pain, unspecified type SCAN DOC: TELEMETRY STRIPS 07/01/2023 9:48 AM EDT SCAN DOC: TELEMETRY STRIPS 07/01/2023 9:46 AM EDT SCAN DOC: TELEMETRY STRIPS 07/01/2023 8:17 AM EDT SCAN DOC: TELEMETRY STRIPS 07/01/2023 8:07 AM EDT DIFFERENTIAL, AUTOMATED Routine 07/01/19 2:56 AM EDT HEMOGRAM Routine 07/01/2023 2:56 AM EDT HC UNFRACTIONATED HEPARIN (HEP UFH) Timed 07/01/2023 2:56 AM EDT BASIC METABOLIC PANEL (NON-FASTING) Routine 07/01/2023 2:56 AM EDT HC PHOSPHORUS, SERUM Routine 07/01/2023 2:56 AM EDT HC MAGNESIUM, SERUM Routine 07/01/2023 2 :56 AM EDT HC CBC,PLT & AUTO DIFF Routine 2:56 AM EDT SCAN DOC: TELEMETRY STRIPS 06/30/2023 10:05 PM EDT EKG 12-LEAD Routine 06/30/2023 12:05 PM EDT HC VENIPUNCTURE Timed 06/30/2023 9:24 AM EDT SCAN DOC: TELEMETRY STRIPS 06/30/2023 8:50 AM EDT DIFFERENTIAL, AUTOMATED Routine 06/30/19 3:14 AM EDT HEMOGRAM Routine 06/30/2023 3:14 AM EDT HC UNFRACTIONATED HEPARIN (HEP UFH) Timed 06/30/2023 3:14 AM EDT BASIC METABOLIC PANEL (NON-FASTING) Routine 06/30/2023 3:14 AM EDT HC PHOSPHORUS, SERUM Routine 06/30/2023 3:14 AM EDT HC MAGNESIUM, SERUM Routine 06/30/2023 3 :14 AM EDT HC CBC,PLT & AUTO DIFF Routine 3:14 AM EDT SCAN DOC: TELEMETRY STRIPS 06/29/2023 9:39 PM EDT HC VENIPUNCTURE Timed 06/29/2023 8:47 PM EDT SCAN DOC: TELEMETRY STRIPS 06/29/2023 7:27 PM EDT SCAN DOC: TELEMETRY STRIPS 06/29/2023 3:19 PM EDT EKG 12-LEAD Routine 06/29/2023 12:55 PM EDT Paroxysmal atrial fibrillation HC UNFRACTIONATED HEPARIN (HEP UFH) Timed 06/29/2023 11:34 AM EDT SCAN DOC: TELEMETRY STRIPS 06/29/2023 8:40 AM EDT SCAN DOC: TELEMETRY STRIPS 06/29/2023 8:03 AM EDT DIFFERENTIAL, AUTOMATED Routine 06/29/19 2:39 AM EDT HEMOGRAM Routine 06/29/2023 2:39 AM EDT HC UNFRACTIONATED HEPARIN (HEP UFH) Timed 06/29/2023 2:39 AM EDT BASIC METABOLIC PANEL (NON-FASTING) Routine 06/29/2023 2:39 AM EDT HC PHOSPHORUS, SERUM Routine 06/29/2023 2:39 AM EDT HC MAGNESIUM, SERUM Routine 06/29/2023 2 :39 AM EDT HC CBC,PLT & AUTO DIFF Routine 2:39 AM EDT SCAN DOC: TELEMETRY STRIPS 06/28/2023 9:13 PM EDT SCAN DOC: TELEMETRY STRIPS 06/28/2023 9:13 PM EDT US ABDOMEN LIMITED Routine 06/28/2023 12 :22 PM EDT MESENTERIC COMPLETE Routine 06/28/2023 1 0:19 AM EDT Mesenteric artery stenosis SCAN DOC: TELEMETRY STRIPS 06/28/2023 8:14 AM EDT SCAN DOC: TELEMETRY STRIPS 06/28/2023 8:12 AM EDT DIFFERENTIAL, AUTOMATED Routine 06/28/19 1:52 AM EDT HEMOGRAM Routine 06/28/2023 1:52 AM EDT BASIC METABOLIC PANEL (NON-FASTING) Routine 06/28/2023 1:52 AM EDT HC PHOSPHORUS, SERUM Routine 06/28/2023 1:52 AM EDT HC MAGNESIUM, SERUM Routine 06/28/2023 1 :52 AM EDT HC VENIPUNCTURE Routine 06/28/2023 1:52 AM EDT BASIC METABOLIC PANEL (NON-FASTING) Routine 06/27/2023 8:06 PM EDT SCAN DOC: TELEMETRY STRIPS 06/27/2023 8:03 PM EDT SCAN DOC: TELEMETRY STRIPS 06/27/2023 4:42 PM EDT SCAN DOC: TELEMETRY STRIPS 06/27/2023 8:22 AM EDT SCAN DOC: TELEMETRY STRIPS 06/27/2023 8:20 AM EDT SCAN DOC: TELEMETRY STRIPS 06/27/2023 7:25 AM EDT HEPATIC FUNCTION PANEL Routine 4:34 AM EDT DIFFERENTIAL, AUTOMATED Routine 06/27/19 4:34 AM EDT HEMOGRAM Routine 06/27/2023 4:34 AM EDT BASIC METABOLIC PANEL (NON-FASTING) Routine 06/27/2023 4:34 AM EDT HC PHOSPHORUS, SERUM Routine 06/27/2023 4:34 AM EDT HC MAGNESIUM, SERUM Routine 06/27/2023 4 :34 AM EDT HC VENIPUNCTURE Routine 06/27/2023 4:34 AM EDT SCAN DOC: TELEMETRY STRIPS 06/26/2023 8:19 PM EDT BASIC METABOLIC PANEL (NON-FASTING) Routine 06/26/2023 4:58 PM EDT URINALYSIS MICROSCOPIC EXAM Routine 06/26/2023 11:09 AM EDT URINALYSIS WITH REFLEX CULTURE Routine 06/26/2023 11:09 AM EDT SCAN DOC: TELEMETRY STRIPS 06/26/2023 8:05 AM EDT SCAN DOC: TELEMETRY STRIPS 06/26/2023 7:45 AM EDT EKG 12-LEAD Routine 06/26/2023 6:04 AM EDT Paroxysmal atrial fibrillation Chest pain, unspecified type DIFFERENTIAL, AUTOMATED Routine 06/26/19 4:06 AM EDT HEMOGRAM Routine 06/26/2023 4:06 AM EDT BASIC METABOLIC PANEL (NON-FASTING) Routine 06/26/2023 4:06 AM EDT HC PHOSPHORUS, SERUM Routine 06/26/2023 4:06 AM EDT HC MAGNESIUM, SERUM Routine 06/26/2023 4 :06 AM EDT HC CBC,PLT & AUTO DIFF Routine 4:06 AM EDT SCAN DOC: TELEMETRY STRIPS 06/25/2023 8:19 PM EDT SCAN DOC: TELEMETRY STRIPS 06/25/2023 9:28 AM EDT DIFFERENTIAL, AUTOMATED Routine 06/25/19 1:50 AM EDT HEMOGRAM Routine 06/25/2023 1:50 AM EDT BASIC METABOLIC PANEL (NON-FASTING) Routine 06/25/2023 1:50 AM EDT HC PHOSPHORUS, SERUM Routine 06/25/2023 1:50 AM EDT HC MAGNESIUM, SERUM Routine 06/25/2023 1 :50 AM EDT HC CBC,PLT & AUTO DIFF Routine 1:50 AM EDT SCAN DOC: TELEMETRY STRIPS 06/24/2023 7:53 PM EDT SCAN DOC: TELEMETRY STRIPS 06/24/2023 10:25 AM EDT PRO-BRAIN NATRIURETIC PEPTIDE Routine 06/24/2023 3:38 AM EDT DIFFERENTIAL, AUTOMATED Routine 06/24/19 3:38 AM EDT HEMOGRAM Routine 06/24/2023 3:38 AM EDT HC UNFRACTIONATED HEPARIN (HEP UFH) Timed 06/24/2023 3:38 AM EDT BASIC METABOLIC PANEL (NON-FASTING) Routine 06/24/2023 3:38 AM EDT HC PHOSPHORUS, SERUM Routine 06/24/2023 3:38 AM EDT HC MAGNESIUM, SERUM Routine 06/24/2023 3 :38 AM EDT HC VENIPUNCTURE Routine 06/24/2023 3:38 AM EDT HC UNFRACTIONATED HEPARIN (HEP UFH) Timed 06/23/2023 9:24 PM EDT SCAN DOC: TELEMETRY STRIPS 06/23/2023 8:20 PM EDT SCAN DOC: TELEMETRY STRIPS 06/23/2023 7:35 PM EDT SCAN DOC: TELEMETRY STRIPS 06/23/2023 6:09 PM EDT MESENTERIC COMPLETE Routine 06/23/2023 3 :36 PM EDT Lower abdominal pain HC UNFRACTIONATED HEPARIN (HEP UFH) Timed 06/23/2023 3:01 PM EDT EKG 12-LEAD Routine 06/23/2023 9:54 AM EDT NSTEMI (non-ST elevated myocardial infarction) SCAN DOC: TELEMETRY STRIPS 06/23/2023 9:13 AM EDT DIFFERENTIAL, AUTOMATED Routine 06/23/19 4:12 AM EDT HEMOGRAM Routine 06/23/2023 4:12 AM EDT HC VENIPUNCTURE Timed 06/23/2023 4:12 AM EDT BASIC METABOLIC PANEL (NON-FASTING) Routine 06/23/2023 4:12 AM EDT HC PHOSPHORUS, SERUM Routine 06/23/2023 4:12 AM EDT HC MAGNESIUM, SERUM Routine 06/23/2023 4 :12 AM EDT HC CBC,PLT & AUTO DIFF Routine 4:12 AM EDT SCAN DOC: TELEMETRY STRIPS 06/22/2023 8:12 PM EDT SCAN DOC: TELEMETRY STRIPS 06/22/2023 6:17 PM EDT SCAN DOC: TELEMETRY STRIPS 06/22/2023 6:17 PM EDT ECHO LMTD W CONTRAST W LMTD SPEC DOPP COLOR DOPP Routine 06/22/2023 4:25 PM EDT Chest pain, unspecified type NSTEMI (non-ST elevated myocardial infarction) HC TROPONIN T STAT 06/22/2023 2:38 PM EDT DUPLEX FOR DVT, ARM, UNILAT Routine 06/22/2023 2:24 PM EDT Chest pain, unspecified type NSTEMI (non-ST elevated myocardial infarction) XR CHEST ONE VIEW STAT 06/22/2023 11: 42 AM EDT HC VENIPUNCTURE STAT 06/22/2023 11:24 AM EDT EKG 12-LEAD Routine 06/22/2023 11:13 AM EDT Chest pain, unspecified type EKG 12-LEAD Routine 06/22/2023 10:55 AM EDT Chest pain, unspecified type SCAN DOC: TELEMETRY STRIPS 06/22/2023 8:01 AM EDT DIFFERENTIAL, AUTOMATED Routine 06/22/19 4:34 AM EDT HEMOGRAM Routine 06/22/2023 4:34 AM EDT BASIC METABOLIC PANEL (NON-FASTING) Routine 06/22/2023 4:34 AM EDT HC PHOSPHORUS, SERUM Routine 06/22/2023 4:34 AM EDT HC MAGNESIUM, SERUM Routine 06/22/2023 4 :34 AM EDT HC CBC,PLT & AUTO DIFF Routine 4:34 AM EDT SCAN DOC: TELEMETRY STRIPS 06/21/2023 8:31 PM EDT SCAN DOC: TELEMETRY STRIPS 06/21/2023 8:31 PM EDT SCAN DOC: TELEMETRY STRIPS 06/21/2023 7:36 PM EDT SCAN DOC: TELEMETRY STRIPS 06/21/2023 5:54 PM EDT SCAN DOC: TELEMETRY STRIPS 06/21/2023 5:52 PM EDT SCAN DOC: TELEMETRY STRIPS 06/21/2023 5:52 PM EDT SCAN DOC: TELEMETRY STRIPS 06/21/2023 5:52 PM EDT SCAN DOC: TELEMETRY STRIPS 06/21/2023 5:[address] ABDOMEN AND PELVIS W CONTRAST Routine 06/21/2023 3:39 PM EDT EKG 12-LEAD Routine 06/21/2023 10:06 AM EDT Chest pain, unspecified type NSTEMI (non-ST elevated myocardial infarction) HC VENIPUNCTURE STAT 06/21/2023 9:45 AM EDT SCAN DOC: TELEMETRY STRIPS 06/21/2023 8:15 AM EDT PRO-BRAIN NATRIURETIC PEPTIDE Routine 06/21/2023 5:58 AM EDT HC VENIPUNCTURE Routine 06/21/2023 5:58 AM EDT DIFFERENTIAL, AUTOMATED Routine 06/21/19 3:25 AM EDT HEMOGRAM Routine 06/21/2023 3:25 AM EDT BASIC METABOLIC PANEL (NON-FASTING) Routine 06/21/2023 3:25 AM EDT HC PHOSPHORUS, SERUM Routine 06/21/2023 3:25 AM EDT HC MAGNESIUM, SERUM Routine 06/21/2023 3 :25 AM EDT HC VENIPUNCTURE Routine 06/21/2023 3:25 AM EDT from Last 3 Months Results * Scan Doc: Telemetry Strips (09/10/2023 8:40 AM EDT) Only the most recent of123 resultswithin the time period is included. Narrative 09/10/2023 8:40 AM EDT Ordered by an unspecified provider. Scanning Provider MEDIA MGR SCAN EXT O RDR/RSLT * (ABNORMAL) Hemogram (09/10/2023 4:17 AM EDT) Only the most recent of33 resultswithin the time period is included. WBC 7.6 4.0 - 9.5 x10(3)/[facility] LABORATORY RBC 4.15 4.00 - 5.21 x10(6)/[facility] LABORATORY Hemoglobin 13.0 11.7 - 15.5 g/dL [facility] Hematocrit 39.2 35.7 - 45.8 % [facility] MCV 94.5(H) 82.6 - 94.4 fL [facility] MCH 31.3 27.1 - 32.0 pg [facility] MCHC 33.2 31.7 - 35.0 g/dL [facility] Platelets 267 145 - 357 x10(3)/[facility] [place] [facility] [place] RDW[place] 44.6 37.0 - 46.0 fL [facility] [place] 13.1 11.5 - 14.1 % [facility] [place]PV 10.3 7.6 - 12.9 fL [facility] nRBC % Auto 0.0 % [facility] [place] nRBC Abs Auto 0.000 0.000 - 0.000 x10(3)/[facility] [place] [facility] [place] Blood 09/10/2023 4:17 AM EDT 09/10/2023 4:29 AM EDT Narrative Resulting Agency Comment Spec In Lab Eufemia Copeland MD HEMATOLOGY ORDERAB LES Performing Organization Address City/State/[facility] Co de Phone Number [facility] [place] [address] * Differential, Automated (09/10/2023 4:17 AM EDT) Only the most recent of33 resultswithin the time period is included. Neutrophils % 54.4 % [facility] Neutr Abs (ANC) 4.17 1.70 - 6.10 x10(3)/[facility] LABORATORY Lymphocytes % 33.2 % [facility] Lymphocytes Abs 2.5 0.9 - 3.2 x10(3)/[facility] LABORATORY Monocytes % 8.4 % [facility] Monocyte Abs 0.6 0.3 - 0.9 x10(3)/[facility] LABORATORY Eosinophils % 3.0 % [facility] Eosinophils Abs 0.2 0.0 - 0.4 x10(3)/[facility] LABORATORY Basophils % 0.7 % [facility] [place] Basophils Abs 0.0 0.0 - 0.1 x10(3)/[facility] LABORATORY Immature Gran % 0.30 % [facility] Comment: Immature granulocytes(IG's)percentage and absolute count will include metamyelocytes, myelocytes, and promyelocytes. Blood smears from CBCs yielding IG's will be scanned manually for concordance. If this scan disagrees with the automated IG or if promyelocytes are noted, a manual differential will be performed. Shonda Gran Abs 0.02 0.00 - 0.04 x10(3)/[facility] LABORATORY Blood 09/10/2023 4:17 AM EDT 09/10/2023 4:29 AM EDT Narrative Resulting Agency Comment Spec In Lab Eufemia Copeland MD HEMATOLOGY ORDERAB LES Performing Organization Address [facility] Co de Phone Number [facility] [place] [address] * Magnesium (09/10/2023 4:17 AM EDT) Only the most recent of34 resultswithin the time period is included. Magnesium 0.99 0.69 - 1.07 mmol/L [facility] Blood 09/10/2023 4:17 AM EDT 09/10/2023 4:29 AM EDT Narrative Resulting Agency Comment Spec In Lab Eufemia Copeland MD CHEMISTRY ORDERABL ES Performing Organization Address [facility] Co de Phone Number [facility] [place] [address] * (ABNORMAL) Basic Metabolic Panel (non-fasting) (09/10/2023 4:17 AM EDT) Only the most recent of40 resultswithin the time period is included. Glucose Lvl 92 65 - 199 mg/dL [facility] Comment:Diabetes: >=200 mg/d L plus symptoms BUN 27(H) 8 - 18 mg/dL [facility] Creatinine 1.39(H) 0.70 - 1.20 mg/dL [facility] Sodium 138 135 - 145 mmol/L [facility] Potassium 4.1 3.5 - 5.0 mmol/L [facility] Comment: Please note: ??Patients with WBC >100,000 may have falsely elevated Potassium levels. ??For accurate Potassium quantification in these patients send serum separator tube (gold top) for subsequent determinations. ??Contact the Clinical Chemistry Laboratory if there are any questions. Chloride 103 98 - 107 mmol/L [facility] CO2 24 22 - 31 mmol/L [facility] Anion Gap 11 5 - 15 mmol/L [facility] Calcium 9.4 8.5 - 10.5 mg/dL [facility] Estimated GFR 45(L) >=60 mL/min/1. 73 m?? [facility] Comment: This patient's estimated GFR was calculated using the 2020 CKD-EPI equation. The estimated GFR can vary from the measured GFR by up to 30% in the absence of rapidly changing kidney function. Assessment of the estimated GFR is not appropriate when creatinine concentrations are rapidly changing. For clinical situations in which a more precise estimate of GFR is necessary, consider alternative methods of GFR estimation such as a 24-hour urine creatinine clearance. Assignment of CKD stage 1-5 for patients with an eGFR near the transition point between stages may be based on clinical assessment of muscle mass and symptoms in addition to eGFR. Blood 09/10/2023 4:17 AM EDT 09/10/2023 4:29 AM EDT Narrative Resulting Agency Comment Spec In Lab Eufemia Copeland MD CHEMISTRY ORDERABL ES [facility] [place] [address] * EKG 12 Lead (09/08/2023 4:01 AM EDT) Only the most recent of24 resultswithin the time period is included. Ventricular rate 59 BPM MUSE SYSTEM Atrial Rate 59 BPM MUSE SYSTEM P-R Interval 192 ms MUSE SYSTEM QRS Duration 92 ms MUSE SYSTEM Q-T Interval 452 ms MUSE SYSTEM QTC Calculated (Bezet) 447 ms MUSE SYSTEM Calculated P [place] 38 degrees MUSE SYSTEM Calculated R [place] 51 degrees MUSE SYSTEM Calculated T [place] -18 degrees MUSE SYSTEM INTERPRETATION Sinus bradycardia Diffuse ST depression, consider subendocardial injury Abnormal ECG When compared with ECG of 03-SEP-2023 06:02, Premature atrial complexes are no longer Present QT has shortened I personally reviewed the tracing and edited the fellows interpretation Confirmed by fellow Vito Pearce ([id number]) on 09/08/2023 7:40:32 AM Confirmed by MD Angelo Danette ([id number]) on 09/08/2023 2:12:57 PM MUSE SYSTEM 09/08/2023 4:01 AM EDT 09/08/2023 2:12 PM EDT Eufemia Copeland MD ECG ORDERABLES MUSE SYSTEM * CT Abdomen & Pelvis w Contrast (09/05/2023 4:25 PM EDT) Only the most recent of2 resultswithin the time period is included. WORKSTATION ID [id number] DH RAD Anatomical Region Laterality Modality Abdomen, Pelvis Computed Tomogra phy Impressions 09/06/2023 9:47 AM EDT 1. ??No acute process in the abdomen or pelvis: Specifically, no CT evidence of mesenteric ischemia. 2. ??SMA stent is widely patent. I have personally reviewed the image(s) and the resident's interpretation and agree with the findings, Lalitha Sanders MD at 09/06/2023 9:47 AM Thank you for letting us participate in the care of this patient. ??If you are a health care provider and have any questions regarding this report, please contact the number below. ??For patients who have questions please contact the health acute care clinical nurse specialist that requested 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 ? Electronically signed by: Lalitha Sanders MD, [facility] ([phone]), at 09/06/2023 9:47 AM Narrative 09/06/2023 9:47 AM EDT EXAMINATION: CTA/CT ABDOMEN AND PELVIS W CONTRAST CLINICAL HISTORY: left sided abdominal pain with ambulation s/p SMA stent 07/02/23; tenderness elicited by left mid to lower abdominal palpation, please evaluate patency of stent and/or other intra-abdominal process which might explain pain Helical CT of the abdomen and pelvis following the intravenous administration of contrast. Administered 100.0 ml of VISIPAQUE 320.00 mg/ml. Imaging performed in the arterial and portal venous phases. Oral contrast was not administered. COMPARISON: CT abdomen pelvis 06/21/2023 FINDINGS: Lower chest: Small hiatal hernia. No basilar consolidation or effusion.. Liver: Normal size and attenuation without lesions. Widely patent hepatic and portal veins. Bile ducts: Nondilated. Gallbladder: No calcified gallstones. Normal caliber wall. Pancreas: Normal attenuation without ductal dilatation. Spleen: Normal. Adrenals: Normal. Kidneys: Symmetric nephrograms. Stable right interpolar scar. No hydronephrosis. Urinary Bladder: Normal. Vasculature: * ??Scattered calcified and noncalcified atheromatous plaque with normal caliber abdominal aorta. * ??The stented SMA is patent. Curvilinear calcified plaque adjacent the SMA stent, stable. * ??The celiac axis and renal arteries are widely patent. The FERNANDO is widely patent. * ??Widely patent bilateral common, external and internal iliac and common femoral arteries. * ??IVC is patent. Lymph Nodes: No enlarged lymph nodes. Bowel: Nondilated, no wall thickening. Normal appendix. Peritoneum and retroperitoneum: No free fluid or loculated fluid collection. No pneumoperitoneum. No mesenteric inflammation. Abdominal wall: Normal. No abdominal wall hernia. Reproductive organs: Absent uterus. Normal ovaries. No mass. Osseous structures: No acute osseous abnormality. Procedure Note Lalitha Sanders MD - 09/06/2023 EXAMINATION: CTA/CT ABDOMEN AND PELVIS W CONTRAST CLINICAL HISTORY: left sided abdominal pain with ambulation s/p SMAstent 07/02/23; tenderness elicited by left mid to lower abdominal palpation,please evaluate patency of stent and/or other intra-abdominal process whichmight explain pain Helical CT of the abdomen and pelvis following the intravenousadministration of contrast. Administered 100.0 ml of VISIPAQUE 320.00 mg/ml. Imagingperformed in the arterial and portal venous phases. Oral contrast was notadministered. COMPARISON: CT abdomen pelvis 06/21/2023 FINDINGS: Lower chest: Small hiatal hernia. No basilar consolidation or effusion.. Liver: Normal size and attenuation without lesions. Widely patent hepaticand portal veins. Bile ducts: Nondilated. Gallbladder: No calcified gallstones. Normal caliber wall. Pancreas: Normal attenuation without ductal dilatation. Spleen: Normal. Adrenals: Normal. Kidneys: Symmetric nephrograms. Stable right interpolar scar. Nohydronephrosis. Urinary Bladder: Normal. Vasculature: * Scattered calcified and noncalcified atheromatous plaque with normalcaliber abdominal aorta. * The stented SMA is patent. Curvilinear calcified plaque adjacent theSMA stent, stable. * The celiac axis and renal arteries are widely patent. The FERNANDO iswidely patent. * Widely patent bilateral common, external and internal iliac andcommon femoral arteries. * IVC is patent. Lymph Nodes: No enlarged lymph nodes. Bowel: Nondilated, no wall thickening. Normal appendix. Peritoneum and retroperitoneum: No free fluid or loculated fluidcollection. No pneumoperitoneum. No mesenteric inflammation. Abdominal wall: Normal. No abdominal wall hernia. Reproductive organs: Absent uterus. Normal ovaries. No mass. Osseous structures: No acute osseous abnormality. IMPRESSION 1. No acute process in the abdomen or pelvis: Specifically, no CTevidence of mesenteric ischemia. 2. SMA stent is widely patent. I have personally reviewed the image(s) and the resident's interpretationand agree with the findings, Lalitha Sanders MD at 09/06/2023 9:47 AM Thank you for letting us participate in the care of this patient. If youare a health care provider and have any questions regarding this report,please contact the number below. For patients who have questions please contactthe health acute care clinical nurse specialist that requested 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 Samantha Broussard MD IMG CT ORDERABLES * Miscellaneous Lab request (09/05/2023 1:58 AM EDT) Pathologist [facility] Lab Result Request received in lab. [facility] Blood 09/05/2023 1:58 AM EDT 09/05/2023 2:14 AM EDT Narrative Resulting Agency Comment Spec In Lab Samantha Broussard MD HEMATOLOGY ORDERABLE S [facility] [place] [address] * IgG 4 (09/05/2023 1:58 AM EDT) [facility] IgG 4 47.7 3.9 - 86.4 mg/dL [facility] Blood 09/05/2023 1:58 AM EDT 09/05/2023 2:13 AM EDT Narrative Resulting Agency Comment Spec In Lab Samantha Broussard MD IMMUNOLOGY ORDERABLE S Performing Organization Address City/[facility]/ZIP Co de Phone Number [facility] [place] [address] * (ABNORMAL) Potassium (09/04/2023 9:13 AM EDT) Only the most recent of3 resultswithin the time period is included. [facility] Potassium 3.2(L) 3.5 - 5.0 mmol/L [facility] Comment: Please note: ??Patients with WBC >100,000 may have falsely elevated Potassium levels. ??For accurate Potassium quantification in these patients send serum separator tube (gold top) for subsequent determinations. ??Contact the Clinical Chemistry Laboratory if there are any questions. Blood 09/04/2023 9:13 AM EDT 09/04/2023 9:28 AM EDT Narrative Resulting Agency Comment Spec In Lab Samantha Broussard MD CHEMISTRY ORDERABLES Performing Organization Address City/[facility]/ZIP Co de Phone Number [facility] [place] [address] * (ABNORMAL) Protein Electrophoresis, serum (09/03/2023 2:39 AM EDT) Only the most recent of2 resultswithin the time period is included. Total Prot Elec 7.9 6.1 - 8.0 g/dL [facility] Albumin Elect 4.87 3.20 - 5.20 g/dL [facility] Alpha1-Globul in 0.21 0.10 - 0.30 g/dL [facility] Alpha2-Globul in 1.03(H) 0.40 - 0.90 g/dL [facility] Beta Globulin 0.90 0.50 - 1.00 g/dL [facility] Gamma Globulin 0.88 0.50 - 1.30 g/dL [facility] M1 Band None Detected None Detected [facility] Blood 09/03/2023 2:39 AM EDT 09/03/2023 2:46 AM EDT Narrative Resulting Agency Comment Spec In Lab Lorna Herr MD CHEMISTRY ORDERABLES Performing Organization Address City/[facility]/ZIP Co de Phone Number [facility] [place] [address] * Protein Electrophoresis, urine, random (09/02/2023 9:30 PM EDT) Pathologist [facility] U Protein Ran <6 0 - 12 mg/dL [facility] U Albumin See Note [facility] Comment:No protein visible v ia electrophoresis due to a low urine total protein. U Globulin Not Perf [facility] Comment:No protein visible v ia electrophoresis due to a low urine total protein. U M Band Not Perf [facility] Comment:No protein visible v ia electrophoresis due to a low urine total protein. U PEP Comments See Note [facility] Comment: Total Protein concentration too low to fractionate using current electrophoretic technique. No protein visible via electrophoresis due to a low urine total protein. Urine 09/02/2023 9:30 PM EDT 09/02/2023 9:35 PM EDT Narrative Resulting Agency Comment Spec In Lab Lorna Herr MD URINE ORDERABLES [facility] [place] [address] * (ABNORMAL) Troponin (09/02/2023 8:16 PM EDT) Only the most recent of9 resultswithin the time period is included. Troponin-T HS 24(H) <=14 ng/L [facility] Comment: This patient's troponin T concentration was determined using the [employer]ron 5th Generation troponin T assay. The 99th percentile for Troponin T for this test is 14 ng/L for females, and 22 ng/L for males. According to the fourth universal definition of myocardial infarction, the term acute myocardial infarction should be used when there is acute myocardial injury with clinical evidence of acute myocardial ischemia and with detection of a rise and/or fall of cardiac troponin values with at least one value above the 99th percentile and at least one of the following: - Symptoms of myocardial ischemia; - New ischemic ECG changes; - Development of pathological Q waves; - Imaging evidence of new loss of viable myocardium or new regional wall motion abnormality in a pattern consistent with an ischemic etiology; - Identification of a coronary thrombus by angiography or autopsy (not for type 2 or 3 MIs) Serial measurement of troponin and the change in troponin concentration over time (delta) is crucial for the diagnosis of acute myocardial infarction. Guidance on the interpretation of the new 5th Generation Troponin T values and the delta troponin value can be found in the [facility] Test Catalog Troponin - [facility] Test Catalog Reference: Fourth [place] Definition of Myocardial Infarction. Journal of the [place] [employer] 2018;72:9259-2707 Blood 09/02/2023 8:16 PM EDT 09/02/2023 8:25 PM EDT Narrative Resulting Agency Comment Spec In Lab Lorna Herr MD CHEMISTRY ORDERABLES Performing Organization Address City/[facility]/ZIP Co de Phone Number [facility] [place] [address] * (ABNORMAL) pro-Brain Natriuretic Peptide (09/02/2023 5:05 PM EDT) Only the most recent of4 resultswithin the time period is included. ProBNP 985(H) <=124 pg/mL [facility] Blood 09/02/2023 5:05 PM EDT 09/02/2023 5:17 PM EDT Narrative Resulting Agency Comment Spec In Lab Lorna Herr MD CHEMISTRY ORDERABLES Performing Organization Address [facility] Co de Phone Number [facility] [place] [address] * Phosphorus (08/31/2023 5:03 PM EDT) Only the most recent of20 resultswithin the time period is included. Phosphorus 3.8 2.5 - 4.5 mg/dL [facility] Blood 08/31/2023 5:03 PM EDT 08/31/2023 5:08 PM EDT Narrative Resulting Agency Comment Spec In Lab Eufemia Copeland MD CHEMISTRY ORDERABL ES Performing Organization Address [facility] Co de Phone Number [facility] [place] [address] * Heparin (unfractionated) Level (08/30/2023 3:09 AM EDT) Only the most recent of26 resultswithin the time period is included. Heparin UFH Level 0.46 IU/mL [facility] Comment: Heparin (anti-Xa) levels should be determined in a plasma sample that has been drawn 6 hours after a dose change to approximate steady-state for continuous heparin infusions. Indication specific Heparin (anti-Xa) levels based on order set selection: Acute DVT or PE treatment: 0.3 ? 0.7 IU/mL Thrombosis Prevention (eg. atrial fibrillation, dary-procedural bridging, mechanical valves): 0.3 ? 0.7 IU/mL Acute Coronary Syndrome: 0.3 ? 0.7 IU/mL Stroke Indications: 0.3 ? 0.5 IU/mL Ultra-low intensity (select indications in cardiac surgery): 0.1 ? 0.3 IU/mL Blood 08/30/2023 3:09 AM EDT 08/30/2023 3:21 AM EDT Narrative Resulting Agency Comment Spec In Lab Archie Mcmanus MD HEMATOLOGY ORDERABLE S [facility] [place] [address] * ECHO LMTD W CONTRAST W LMTD SPEC DOPP COLOR DOPP (08/29/2023 11:35 AM EDT) EF 50 HEARTLAB SYSTEM Anatomical Region Laterality Modality Cardiac Other 08/29/2023 9:47 AM EDT Narrative 08/29/2023 12:27 PM EDT [address] [place] [address] ? Echocardiogram Report Name: LOIDA ROQUE ? Study Date: 08/29/2023 09:47 AMBP: 100/55 mmHg ? Patient Location: [address]: 1970 ? Height: 163 cm ? Account: [id number] Age: 53 yrs ? Weight: 102 kg Gender: Female ?BSA: 2.1 m2 Ordering Physician: ARCHIE MCMANUS Referring Physician: SKIP HUMPHREY Performed By: Nalini Alvares RDCS Exam Location: [facility]. Interpretation Summary Left ventricle is normal in size. There is low normal global systolic function, with focal hypokinesis in the anteroseptum as ascribed. Right ventricle is not well visualized. No hemodynamically significant valve disease. Compared to prior studies over the past 6 months, there has been stable global LV systolic function, with oscillating regional function of the anterior wall. Procedure Limited - [address]. Image enhancement Optison was used for left ventricular opacification. Suboptimal quality. Left Ventricle Left ventricle is of normal size. Wall thickness is mildly increased. The left ventricular ejection fraction is 50% by Reyes's biplane. There are segmental wall motion abnormalities. Right Ventricle The right ventricle is not well visualized. Left Atrium The left atrium is mildly dilated. Aortic Valve The aortic valve is tricuspid. There is no aortic stenosis. There is no aortic regurgitation. Mitral Valve The mitral valve is structurally normal. There is mild to moderate mitral regurgitation. Tricuspid Valve The tricuspid valve is structurally normal. There is mild tricuspid regurgitation. Pulmonic Valve The pulmonic valve is not well visualized. Venous Inferior vena cava is normal in size. Inferior vena cava collapse greater than 50% with respiration. Pericardium/Pleural There is a trivial pericardial effusion. A pericardial fat pad is present. Hemodynamics The peak right ventricular systolic pressure is 21.2 mmHg . The estimated right atrial pressure is 3mmHg. Left ventricular filling pressure is normal. Ejection Fraction ?2D Measurements ? Volumes EF(MOD-bp): 50.2 % ?IVSd: 1.3 cm ? EDV(MOD- bp) Indexed: ?LVIDd: 4.5 cm ?60.0 ml/m2 ?LVIDs: 3.6 cm ?ESV(MOD-bp) Indexed: ?LVPWd: 1.3 cm ?RWT: 0.60 {ratio} ?29.9 ml/m2 ?LV mass(C)d: 220.8 grams ?LV mass(C)dI: 107.6 grams/m2 Doppler MV E max sierra: 55.0 cm/sec MV A max sierra: 41.4 cm/sec MV E/A: 1.3 MV dec time: 0.08 sec Lat Peak E' Sierra: 5.5 cm/sec E/e' (lat): 9.9 Med Peak E' Sierra: 4.4 cm/sec E/e' (med): 12.6 E/e' Average: 11.3 TR max sierra: 213.4 cm/sec RVSP(TR): 21.2 mmHg I ?WMSI = 1.13 ? % Normal = 88 ?Segments ??Size X - Cannot ?? 1 - Normal ?? 2 - ? 3 - Akinetic 4 - ?1-2 ? small Interpret ? Hypokinetic ?Dyskinetic ?? 3-5 ? moderate 5 - ? 6-14 ?large Aneurysmal ?15-16 ?? diffuse Procedure Note Jaspreet Kinsey MD - 08/29/2023 [address] [place] [id number] Echocardiogram Report Name: LOIDA ROQUE Study Date: 409:47 AMBP: 100/55 mmHg Patient Location: [address] : 1970 Height: 163 cm Account: [id number] Age: 53 yrs Weight: 102 kg Gender: Female BSA: 2.1 m2 Ordering Physician: ARCHIE MCMANUS Referring Physician: SKIP HUMPHREY Performed By: Nalini Alvares RDCS Exam Location: [facility]. Interpretation Summary Left ventricle is normal in size. There is low normal global systolicfunction, with focal hypokinesis in the anteroseptum as ascribed. Right ventricle is not well visualized. No hemodynamically significant valve disease. Compared to prior studies over the past 6 months, there has been stableglobal LV systolic function, with oscillating regional function of the anteriorwall. Procedure Limited - 24512. Image enhancement Optison was used for left ventricular opacification. Suboptimal quality. Left Ventricle Left ventricle is of normal size. Wall thickness is mildly increased. Theleft ventricular ejection fraction is 50% by Reyes's biplane. There aresegmental wall motion abnormalities. Right Ventricle The right ventricle is not well visualized. Left Atrium The left atrium is mildly dilated. Aortic Valve The aortic valve is tricuspid. There is no aortic stenosis. There is noaortic regurgitation. Mitral Valve The mitral valve is structurally normal. There is mild to moderatemitral regurgitation. Tricuspid Valve The tricuspid valve is structurally normal. There is mild tricuspidregurgitation. Pulmonic Valve The pulmonic valve is not well visualized. Venous Inferior vena cava is normal in size. Inferior vena cava collapse greaterthan 50% with respiration. Pericardium/Pleural There is a trivial pericardial effusion. A pericardial fat pad ispresent. Hemodynamics The peak right ventricular systolic pressure is 21.2 mmHg . The estimatedright atrial pressure is 3mmHg. Left ventricular filling pressure is normal. Ejection Fraction 2D Measurements Volumes EF(MOD-bp): 50.2 % IVSd: 1.3 cm EDV(MOD-bp)Indexed: LVIDd: 4.5 cm 60.0 ml/m2 LVIDs: 3.6 cm ESV(MOD-bp)Indexed: LVPWd: 1.3 cm RWT: 0.60 {ratio} 29.9 ml/m2 LV mass(C)d: 220.8 grams LV mass(C)dI: 107.6 grams/m2 Doppler MV E max sierra: 55.0 cm/sec MV A max sierra: 41.4 cm/sec MV E/A: 1.3 MV dec time: 0.08 sec Lat Peak E' Sierra: 5.5 cm/sec E/e' (lat): 9.9 Med Peak E' Sierra: 4.4 cm/sec E/e' (med): 12.6 E/e' Average: 11.3 TR max sierra: 213.4 cm/sec RVSP(TR): 21.2 mmHg I WMSI = 1.13 % Normal = 88 SegmentsSize X - Cannot 1 - Normal 2 - 3 - Akinetic 4 - 1-2small Interpret Hypokinetic Dyskinetic 3-5moderate 5 - 6-14large Aneurysmal 15-16diffuse Archie Mcmanus MD ECHO ORDERABLES * CRP, acute inflammation (08/29/2023 4:01 AM EDT) Pathologist [facility] CRP <3.0 <=4.9 mg/L [facility] Blood Venous Draw / Unknown 08/29/2023 4:01 AM EDT 08/29/2023 4:13 AM EDT Narrative Resulting Agency Comment Spec In Lab Eufemia Copeland MD CHEMISTRY ORDERABL ES [facility] [place] [address] * Green Tube HOLD (08/29/2023 4:01 AM EDT) Pathologist [facility] Green Hold Sample in lab. [facility] Blood Venous Draw / Unknown 08/29/2023 4:01 AM EDT 08/29/2023 4:09 AM EDT Archie Mcmanus MD CHEMISTRY ORDERABLES [facility] [place] [address] * Sedimentation rate (08/29/2023 4:01 AM EDT) Sed Rate 11 2 - 39 mm/hr [facility] Comment: Effective February 15, 2019 new capillary photometric technology has resulted in a change in reference ranges. It is recommended that each ESR result be reviewed with its own age appropriate reference range. Blood Venous Draw / Unknown 08/29/2023 4:01 AM EDT 08/29/2023 4:08 AM EDT Narrative Resulting Agency Comment Spec In Lab Eufemia Copeland MD HEMATOLOGY ORDERAB LES Performing Organization Address City/[facility]/ZIP Co de Phone Number [facility] [place] [address] * (ABNORMAL) Hepatic Function Panel (08/28/2023 9:07 PM EDT) Only the most recent of5 resultswithin the time period is included. Total Protein 6.6 6.1 - 8.0 g/dL [facility] Albumin 4.2 3.2 - 5.2 g/dL [facility] AST 32(H) 0 - 30 unit/L [facility] ALT 28 0 - 30 unit/L [facility] Alk Phos 52 35 - 105 unit/L [facility] Total Bilirubin 0.6 0.2 - 1.3 mg/dL [facility] Bili, Direct 0.2 0.0 - 0.3 mg/dL [facility] Blood 08/28/2023 9:07 PM EDT 08/28/2023 9:12 PM EDT Narrative Resulting Agency Comment Spec In Lab Archie Mcmanus MD CHEMISTRY ORDERABLES Performing Organization Address [facility] Co de Phone Number [facility] [place] [address] * Lipid Panel (Reflex Direct LDL) (08/28/2023 9:07 PM EDT) Chol, Total 203 mg/dL [facility] Comment: Desirable: ? <200 mg/dL Borderline High: 200-239 mg/dL Higher: ?>gu=011 mg/dL Triglycerides 146 mg/dL [facility] Comment: Normal: ?<150 mg/dL Borderline High: 150-199 mg/dL High: ?200-499 mg/dL Very High: ? >kc=882 mg/dL HDL 52 mg/dL [facility] Comment: Females: High Risk: <50 mg/dL Males: High Risk: <40 mg/dL LDL Cholesterol 122 mg/dL [facility] Comment: Desirable: ? <100 mg/dL Above Desirable: 100-129 mg/dL Borderline High: 130-159 mg/dL High: ?160-189 mg/dL Very High: ? >sv=207 mg/dL Lipid Interpretation See Note [facility] Comment: It is important to review the results of your lipid panel with your health care provider. You can compare your lipid results to the ranges below and whether they are in the desirable range. These ranges are only meant to be used for people without known cardiac disease, history of stroke, or peripheral vascular disease (blockages in the leg arteries or diabetes). If ??you have one of these conditions, your desirable LDL-C (bad cholesterol) will likely be even lower. ACC/AHA Guidelines (most recently Ysabel et al. [facility] 12/09/21): For individuals with atherosclerotic cardiovascular disease (ASCVD)or LDL >bw=362 mg/dL, use a high-intensity statin (40-80 mg atorvastatin or 20-40 mg rosuvastatin with goal >or=50% LDL reduction) For individuals with diabetes, age 40-75 without ASCVD, moderate-intensity statin (goal 30-49% LDL reduction); consider high intensity statin for those with increased risk. For adults without diabetes or ASCVD, aged 40-75 with LDL 70-189 mg/dL, estimate 10 year ASCVD risk with smartphrase .ASCVDRISK or Dynamed Decisions. If 10 year risk is 7.5%-19.9% (intermediate risk), consider moderate intensity statin based on risk enhancers and patient preference. Consider coronary artery calcium test (CT) if there is concern regarding the benefit of a statin. If ten year risk is >or=20%, initiate high-intensity statin. Evaluate for secondary causes of triglycerides >500 mg/dL or LDL >190 mg/dL. Lifestyle modification is a critical component of ASCVD risk reduction. If not reaching LDL goals on maximally tolerated statin, consider ezetimibe and/or a PCSK9 inhibitor: Target for primary prevention: LDL<100 Target for those with ASCVD or diabetes and 10-year risk >or=20%: LDL<70 Target for those with very high risk ASCVD: LDL<55 (Very high risk being the presence of 2 or more of: recent acute coronary syndrome, past myocardial infarction, ischemic stroke, symptomatic peripheral artery disease) Blood 08/28/2023 9:07 PM EDT 08/28/2023 9:12 PM EDT Narrative Resulting Agency Comment Spec In Lab Archie Mcmanus MD CHEMISTRY ORDERABLES Performing Organization Address [facility] de Phone Number [facility] [place] [address] * Film Library- Storage Only CT Chest (08/28/2023 1:00 PM EDT) Narrative [facility] - 08/28/2023 1:00 PM EDT This exam is auto-finalizing. It's purpose is for storage only. Jaspreet Kinsey MD IMG FILM LIBRARY ORD ERABLES Performing Organization Address [facility] Co de Phone Number [place], [place] * Scan Doc: ECG (08/28/2023 11:53 AM EDT) Historical Provider MEDIA MGR SCAN EX T ORDR/RSLT * (ABNORMAL) Free Light Chains, Serum (08/25/2023 11:28 AM EDT) [place] Free Light Chain 3.09(H) 0.72 - 2.75 mg/dL [facility] Lambda Free Light Chain 1.65 0.57 - 2.15 mg/dL [facility] [place] Lambda FLC Ratio 1.8727 0.4000 - 2.5800 [facility] Blood 08/25/2023 11:2 8 AM EDT 08/25/2023 11:36 AM EDT Narrative Resulting Agency Comment Spec In Lab Jaspreet Kinsey MD CHEMISTRY ORDERABLES Performing Organization Address [facility]/ZIP Co de Phone Number [facility] [place] [address] * Lyme IgG & IgM Antibody (08/25/2023 11:28 AM EDT) Lyme Screening Antibody Negative Negative [facility] Lyme Ab Comment Negative result does not exclude possibility of infection. [facility] Comment: Please note that as of 07/14/2022 that this testing is performed by the Special Chemistry Laboratory at [facility]. This change in testing location is associated with a change in testing methodology. Blood 08/25/2023 11:2 8 AM EDT 08/26/2023 7:26 AM EDT Narrative Resulting Agency Comment Spec In Lab Jaspreet Kinsey MD IMMUNOLOGY ORDERABLE S Performing Organization Address [facility] Co de Phone Number [facility] [place] [address] * Iron and TIBC (08/25/2023 11:28 AM EDT) Iron 113 30 - 150 mcg/dL [facility] TIBC 338 250 - 450 mcg/dL [facility] Iron Saturation 33 20 - 50 % [facility] Blood 08/25/2023 11:2 8 AM EDT 08/25/2023 11:36 AM EDT Narrative Resulting Agency Comment Spec In Lab Jaspreet Kinsey MD CHEMISTRY ORDERABLES Performing Organization Address City/[facility]/ZIP Co de Phone Number [facility] [place] [address] * Tissue transglutaminase, IgA (08/25/2023 11:28 AM EDT) TTG IgA Ab 0.6 <=10.0 u/ml [facility] Comment: Negative: ??<7 units/mL Indeterminate: 7-10 units/mL Positive: ??>10 units/mL Blood 08/25/2023 11:2 8 AM EDT 08/26/2023 7:26 AM EDT Narrative Resulting Agency Comment Spec In Lab Mary Reyes DOG LICENSE OFFICER SUPERVISOR IMMUNOLOGY ORDERAB LES [facility] [place] [address] * Streptococcal Antibody Panel (08/25/2023 11:28 AM EDT) Pathologist [facility] ASO Titer 25 0 - 530 IU/mL [facility] Comment: Test Performed by: [facility] [place] [place] [address] Security And Compliance Project Manager: Nellie Haney Ph.D.; CLIA# [id number] DNase B Ab 146 0 - 300 unit/mL [facility] Comment: Test Performed by: [facility] [place] [place] [address] Security And Compliance Project Manager: Nellie Haney Ph.D.; CLIA# [id number] Blood 08/25/2023 11:2 8 AM EDT 08/25/2023 1:02 PM EDT Narrative Resulting Agency Comment Spec In Lab Jaspreet Kinsey MD IMMUNOLOGY ORDERABLE S [facility] [place] [address] * KATHRINE Antibody Screen (08/25/2023 11:28 AM EDT) Pathologist [facility] Antinuclear Ab Negative Negative [facility] Comment: This antinuclear antibody (KATHRINE) screen is a qualitative test performed using a fluoroenzyme immunoassay on the Phadia 250 analyzer. This screen is designed to detect antibodies to U1RNP, SS-A/Ro, SS-B/La, centromere B, Scl-70, Dasia-1, and Sm(Alcantar) proteins in serum samples. Antibodies to other nuclear antibodies will not be detected with this assay. This KATHRINE screen is also performed in concert with a quantitative for IgG antibodies to dsDNA. dsDNA Ab 1.0 <=15.0 IU/mL [facility] Comment: <10 negative 10-15 equivocal >15 positive This dsDNA antibody result was generated using a fluoroenzyme immunoassay on the Cooler Planetdia 250 analyzer. This quantitative test is designed to detect IgG antibodies directed against double stranded DNA in human serum. The presence of antibodies that recognize dsDNA is a highly specific marker for systemic lupus erythematosus. Please note that as of 12/30/2021 that this testing is performed by the Special Chemistry Laboratory at [facility]. This change in testing location is associated with a change is testing method and reference intervals. Please review the results of this test in association with the posted reference intervals. Blood 08/25/2023 11:2 8 AM EDT 08/26/2023 7:26 AM EDT Narrative Resulting Agency Comment Spec In Lab Jaspreet Kinsey MD IMMUNOLOGY ORDERABLE S Performing Organization Address City/[facility]/ZIP Co de Phone Number [facility] [place] [address] * IgA (08/25/2023 11:28 AM EDT) IgA 372 70 - 400 mg/dL [facility] Blood 08/25/2023 11:2 8 AM EDT 08/25/2023 11:37 AM EDT Narrative Resulting Agency Comment Spec In Lab Mary Reyes APRN IMMUNOLOGY ORDERAB LES Performing Organization Address City/[facility]/ZIP Co de Phone Number [facility] [place] [address] * IgG (08/25/2023 11:28 AM EDT) IgG 1,114 700 - 1,600 mg/dL [facility] Comment: Pediatric Reference Intervals obtained from the Caliper Reference Interval project. http://www.sickkids.ca/caliperproject/index.html Blood 08/25/2023 11:2 8 AM EDT 08/25/2023 11:37 AM EDT Narrative Resulting Agency Comment Spec In Lab Mary Reyes APRN IMMUNOLOGY ORDERAB LES Performing Organization Address [facility]/ZIP Co de Phone Number [facility] [place] [address] * Ferritin (08/25/2023 11:28 AM EDT) Pathologist [facility] Ferritin 110 11 - 328 ng/mL [facility] Comment: Please note that as of 02/10/2023, the reference intervals for Ferritin have been updated. Blood 08/25/2023 11:2 8 AM EDT 08/25/2023 11:37 AM EDT Narrative Resulting Agency Comment Spec In Lab Jaspreet Kinsey MD CHEMISTRY ORDERABLES Performing Organization Address [facility] Co de Phone Number [facility] [place] [address] * NM PET CT Cardiac Pharmacologic Stress CT Component (08/17/2023 2:38 PM EDT) WORKSTATION ID [id number] DH RAD Anatomical Region Laterality Modality Positron Emissio n Tomography (PET) Impressions 08/18/2023 2:49 PM EDT Moderate-sized scar in the apical septum and anterior wall. LVEF fails to augment appropriately with vasodilator stress. Globally reduced coronary flow reserve which could be consistent with microvascular dysfunction. I have personally reviewed the image(s) and the resident's interpretation and agree with the findings, Clay Stanton MD at 08/18/2023 2:49 PM Thank you for letting us participate in the care of this patient. ??If you are a health care provider and have any questions regarding this report, please contact the number below. ??For patients who have questions please contact the health acute care clinical nurse specialist that requested 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 ? Narrative 08/18/2023 2:49 PM EDT EXAMINATION: NM PET CT CARDIAC PHARMACOLOGIC STRESS AND REST, NM PET CT CARDIAC PHARMACOLOGIC STRESS CT COMPONENT CLINICAL HISTORY: ?microvascular dysfunction R07.9, Chest pain, unspecified TECHNIQUE: During rest, 35 mCi of rubidium-82 was administered intravenously. PET images of the heart were obtained with reconstruction in the short, vertical long and horizontal long axis. The patient then received regadenoson intravenously at a dose of 0.4 mg. Immediately following, 35 mCi of rubidium-82 was administered intravenously. Images of the heart were then again obtained with PET reconstruction. A low-dose CT scan was acquired for the purpose of attenuation correction COMPARISON: PET CT 04/30/23 FINDINGS: There is a moderate sized, severe intensity, fixed perfusion defect involving the apical septum and the majority of the anterior wall. Functional analysis Myocardial function: Mild global hypokinesis with apical akinesis. Rest Left ventricular ejection fraction: visually 45% Stress Left ventricular ejection fraction: visually ??45% Coronary flow reserve LAD territory: 1.14 Coronary flow reserve LCx territory: 1.07 Coronary flow reserve RCA territory: ??0.98 Coronary flow reserve total: 1.04 Patient was contacted about whether she had any caffeine within 24 hours prior to the test, but she denied consuming any caffeine related products recently. ANCILLARY CT FINDINGS: Descending aorta calcifications. Coronary calcifications. Bilateral ground glass opacities are [id number] Procedure Note Clay Stanton MD - 08/18/2023 EXAMINATION: NM PET CT CARDIAC PHARMACOLOGIC STRESS AND REST, NM PET CTCARDIAC PHARMACOLOGIC STRESS CT COMPONENT CLINICAL HISTORY: ?microvascular dysfunction R07.9, Chest pain, unspecified TECHNIQUE: During rest, 35 mCi of rubidium-82 was administeredintravenously. PET images of the heart were obtained with reconstruction in the short,vertical long and horizontal long axis. The patient then received regadenoson intravenously at a dose of 0.4 mg. Immediately following, 35 mCi of rubidium-82 was administeredintravenously. Images of the heart were then again obtained with PET reconstruction. A low-dose CT scan was acquired for the purpose of attenuationcorrection COMPARISON: PET CT 04/30/23 FINDINGS: There is a moderate sized, severe intensity, fixed perfusion defectinvolving the apical septum and the majority of the anterior wall. Functional analysis Myocardial function: Mild global hypokinesis with apical akinesis. Rest Left ventricular ejection fraction: visually 45% Stress Left ventricular ejection fraction: visually 45% Coronary flow reserve LAD territory: 1.14 Coronary flow reserve LCx territory: 1.07 Coronary flow reserve RCA territory: 0.98 Coronary flow reserve total: 1.04 Patient was contacted about whether she had any caffeine within 24 hoursprior to the test, but she denied consuming any caffeine related productsrecently. ANCILLARY CT FINDINGS: Descending aorta calcifications. Coronary calcifications. Bilateral ground glass opacities are IMPRESSION Moderate-sized scar in the apical septum and anterior wall. LVEF fails to augment appropriately with vasodilator stress. Globally reduced coronary flow reserve which could be consistent with microvascular dysfunction. I have personally reviewed the image(s) and the resident's interpretationand agree with the findings, Clay Stanton MD at 08/18/2023 2:49 PM Thank you for letting us participate in the care of this patient. If youare a health care provider and have any questions regarding this report,please contact the number below. For patients who have questions please contactthe health acute care clinical nurse specialist that requested 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 Porsha Mcfarlane MD IMG PET ORDERABLES * NM PET CT Cardiac Pharmacologic Stress and Rest (08/17/2023 2:38 PM EDT) WORKSTATION ID [id number] RAD Anatomical Region Laterality Modality Positron Emissio n Tomography (PET) Impressions 08/18/2023 2:49 PM EDT Moderate-sized scar in the apical septum and anterior wall. LVEF fails to augment appropriately with vasodilator stress. Globally reduced coronary flow reserve which could be consistent with microvascular dysfunction. I have personally reviewed the image(s) and the resident's interpretation and agree with the findings, Clay Stanton MD at 08/18/2023 2:49 PM Thank you for letting us participate in the care of this patient. ??If you are a health care provider and have any questions regarding this report, please contact the number below. ??For patients who have questions please contact the health acute care clinical nurse specialist that requested 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 ? Narrative 08/18/2023 2:49 PM EDT EXAMINATION: NM PET CT CARDIAC PHARMACOLOGIC STRESS AND REST, NM PET CT CARDIAC PHARMACOLOGIC STRESS CT COMPONENT CLINICAL HISTORY: ?microvascular dysfunction R07.9, Chest pain, unspecified TECHNIQUE: During rest, 35 mCi of rubidium-82 was administered intravenously. PET images of the heart were obtained with reconstruction in the short, vertical long and horizontal long axis. The patient then received regadenoson intravenously at a dose of 0.4 mg. Immediately following, 35 mCi of rubidium-82 was administered intravenously. Images of the heart were then again obtained with PET reconstruction. A low-dose CT scan was acquired for the purpose of attenuation correction COMPARISON: PET CT 04/30/23 FINDINGS: There is a moderate sized, severe intensity, fixed perfusion defect involving the apical septum and the majority of the anterior wall. Functional analysis Myocardial function: Mild global hypokinesis with apical akinesis. Rest Left ventricular ejection fraction: visually 45% Stress Left ventricular ejection fraction: visually ??45% Coronary flow reserve LAD territory: 1.14 Coronary flow reserve LCx territory: 1.07 Coronary flow reserve RCA territory: ??0.98 Coronary flow reserve total: 1.04 Patient was contacted about whether she had any caffeine within 24 hours prior to the test, but she denied consuming any caffeine related products recently. ANCILLARY CT FINDINGS: Descending aorta calcifications. Coronary calcifications. Bilateral ground glass opacities are [id number] Procedure Note Clay Stanton MD - 08/18/2023 EXAMINATION: ID PET CT CARDIAC PHARMACOLOGIC STRESS AND REST, ID PET CTCARDIAC PHARMACOLOGIC STRESS CT COMPONENT CLINICAL HISTORY: ?microvascular dysfunction R07.9, Chest pain, unspecified TECHNIQUE: During rest, 35 mCi of rubidium-82 was administeredintravenously. PET images of the heart were obtained with reconstruction in the short,vertical long and horizontal long axis. The patient then received regadenoson intravenously at a dose of 0.4 mg. Immediately following, 35 mCi of rubidium-82 was administeredintravenously. Images of the heart were then again obtained with PET reconstruction. A low-dose CT scan was acquired for the purpose of attenuationcorrection COMPARISON: PET CT 04/30/23 FINDINGS: There is a moderate sized, severe intensity, fixed perfusion defectinvolving the apical septum and the majority of the anterior wall. Functional analysis Myocardial function: Mild global hypokinesis with apical akinesis. Rest Left ventricular ejection fraction: visually 45% Stress Left ventricular ejection fraction: visually 45% Coronary flow reserve LAD territory: 1.14 Coronary flow reserve LCx territory: 1.07 Coronary flow reserve RCA territory: 0.98 Coronary flow reserve total: 1.04 Patient was contacted about whether she had any caffeine within 24 hoursprior to the test, but she denied consuming any caffeine related productsrecently. ANCILLARY CT FINDINGS: Descending aorta calcifications. Coronary calcifications. Bilateral ground glass opacities are [id number] IMPRESSION Moderate-sized scar in the apical septum and anterior wall. LVEF fails to augment appropriately with vasodilator stress. Globally reduced coronary flow reserve which could be consistent with microvascular dysfunction. I have personally reviewed the image(s) and the resident's interpretationand agree with the findings, Clay Stanton MD at 08/18/2023 2:49 PM Thank you for letting us participate in the care of this patient. If youare a health care provider and have any questions regarding this report,please contact the number below. For patients who have questions please contactthe health acute care clinical nurse specialist that requested 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 Porsha Mcfarlane MD IMG PET ORDERABLES * Nuclear Pharmacologic Stress Cardiology (PET CT Mobile) (08/17/2023 2:17 PM EDT) Anatomical Region Laterality Modality Other Porsha Mcfarlane MD CARDIAC SERVICES OR DERABLES * Duplex Study Visceral Arteries, Comp (08/03/2023 8:36 AM EDT) Only the most recent of4 resultswithin the time period is included. VB Text Report Department: Vascular Surgery Lab Patient: [id number] (LOIDA ROQUE) CPT: 38864 Referring Physician: MAMIE MARX ?? Phone: Indications: S/p SMA stenting (07/01) one month f/u, ? patency Findings: Unilateral ? Waveform ? PSV cm/s ??EDV cm/s ??Patent ?? Dary Visceral Aorta ? 71 ?14 ? Celiac Artery, Proximal ??[place]-Biphasic ? 100 ?22 ? Celiac Artery, Mid ? [place]-Biphasic ?99 ?19 ? Celiac Artery, Distal ?[place]-Biphasic ?94 ?18 ? Sup Mes Artery Proximal ??Bi-Triphasic ?316 ?39 ? Sup Mes Artery Middle ?Bi-Triphasic ?227 ?22 ? Sup Mes Artery Distal ?Triphasic ? 136 ? 0 ? Hepatic Artery ?No Vis ?? Splenic Artery ?No Vis ?? Inf Mes Artery ?No Vis ?? Interpretation: Limited visualization due to overlying bowel gas and body habitus. Patient was not fasting for today's exam. Patent stented superior mesenteric artery with slightly elevated peak systolic velocities just above threshold with a >50% stenosis. This is a slight increase when compared to the previous exam on 07/05/23. Patent celiac artery with no evidence of hemodynamically significant stenosis. No identifiable change when compared to the previous exam. Unable to visualize the hepatic, splenic and inferior mesenteric arteries on today's exam due to overlying bowel gas; cannot exclude elevated velocities/ stenosis here. Comment: Velocity threshold interpretation within mesenteric artery stents may differ from [place] arteries, with thresholds for diagnosis of significant stenosis likely being somewhat higher in stented arteries than [place].% To date, there is no evidence based consensus of stent velocity criteria. Therefore, the current interpretation is based on [place] artery thresholds. Previous Celiac/Mesenteric Studies: Date ? SMA PSV ?? EDV ?? Celiac PSV ?? EDV ? 427 ? 91 ?119 ? 26 ? 289 ? 27 ?116 ? 20 Current Exam ?? 316 ? 39 ?100 ? 22 Electronically Signed by: ANTONIETA CHAVEZ on 2023-08-05 02:20:17 PM [facility] VB Text Report End of Report [facility] 08/03/2023 8:36 AM EDT Mamie Marx APRN VASCULAR ORDERABLES [facility] * Specimen to Pathology (07/07/2023 2:55 PM EDT) Only the most recent of3 resultswithin the time period is included. AP Specimen 07/07/2023 2:55 PM EDT 07/07/2023 2:55 PM EDT Narrative [facility] - 07/07/2023 2:55 PM EDT Specimen requisition ordered. ??Separate Pathology report to follow Lloyd Keating MD PATHOLOGY/CYTOLOGY O RDERAFADUMO Performing Organization Address City/[facility] Co de Phone Number [facility] [place] [address] * Surgical Pathology Report (07/07/2023 2:25 PM EDT) Pathologist [facility] Surgical Pathology Report [id number] ? Location: L4WB; 0466; A The signing pathologist has (i) examined the relevant preparation(s) for the specimen(s) and (ii) rendered or confirmed the diagnosis(es). . ?Surgical Pathology DIAGNOSIS A - Duodenal biopsies rule out celiac disease, biopsy (Multiple): - ??Small intestinal mucosa within normal limits, including preserved villous architecture. B - Gastric biopsies rule out h. pylori, biopsy (Multiple): - ??Gastric antral gland mucosa with nonspecific reactive gastropathy. - ??Gastric body/fundic-typ e mucosa with parietal cell hyperplasia consistent with PPI effect. - H. pylori ??organisms ??are not seen. C - Non-targeted colon biopsies, biopsy (Multiple): - ??Colonic mucosa within normal limits. CR-PX Electronically signed by: ?Monie JOHN PhD, Sapna Verified: ??07/19/2023 13:25 ??Pathologist Performed at: ??-[facility] Dept. of Pathology, [place] [address] Liquid Chlorine Operator: Vangie Lu MD, AP, ??CLIA Certificate: [id number] SPECIMEN(S) SUBMITTED A - duodenal biopsies rule out celiac disease, biopsy (Multiple) B - gastric biopsies rule out h. pylori, biopsy (Multiple) C - non-targeted colon biopsies, biopsy (Multiple) CLINICAL INFORMATION 53-year-old female with abdominal pain and altered bowel habits, diarrhea SPECIMEN PROCESSING A - Labeled/Fixativ e: Duodenal biopsies rule out celiac disease, formalin. Quantity/Size: Three, ranging from 0.4 to 0.5 cm. Tissue Description: Soft, gann-pink tissues. Sections/Proces sing: Submitted in toto ??in 1 cassette labeled A1. B - Labeled/Fixativ e: Gastric biopsies rule out H. pylori, formalin. Quantity/Size: Four, ranging from 0.4 to 0.5 cm. Tissue Description: Soft, gann-pink tissues. Sections/Proces sing: Submitted in toto ??in 1 cassette labeled B1. C - Labeled/Fixativ e: Nontargeted colon biopsies, formalin. Quantity/Size: Multiple, ranging from 0.2 to 1.0 cm. Tissue Description: Soft, brown tissues. Sections/Proces sing: Submitted in toto ??in 2 cassettes labeled C1-C2. ??sdy [facility] 07/07/2023 2:25 PM EDT Lashonda Villa MD PATHOLOGY/CYTOLOGY O RUMA LASHONDA [facility] [place] [address] * UPPER GI ENDOSCOPY (07/07/2023 1:40 PM EDT) Pathologist [facility] UPPER GI ENDOSCOPY [facility] Endoscopy Procedure Date: 07/07/2023 1:40 PM ? Patient Name: Loida Rqoue ? N: [id number] ? Date of : 1970 ? Age: 53 ? Order #: [id number] ? Instrument Name: [id number] ? Procedure: ? Upper GI endoscopy Indications: ? Epigastric abdominal pain, Heartburn Providers: ? Lashonda Villa MD, Meadow ? Systrom, Mercedes Toledo, Bouchra Recinos MD: ?Lloyd Keating Medicines: ? Monitored Anesthesia Care Complications: ? No immediate complications. Procedure: ? Pre-Anesthesia Assessment: ? - Prior to the procedure, a History ? and Physical was performed, and ? patient medications and allergies ? were reviewed. The patient's ? tolerance of previous anesthesia ? was also reviewed. The risks and ? benefits of the procedure and the ? sedation options and risks were ? discussed with the patient. All ? questions were answered, and ? informed consent was obtained. ? Prior Anticoagulants: The patient ? has taken heparin, last dose was ? day of procedure. ASA Grade ? Assessment: III - A patient with ? severe systemic disease. After ? reviewing the risks and benefits, ? the patient was deemed in ? satisfactory condition to undergo ? the procedure. ? The procedure, indications, ? benefits, risks and alternatives ? were explained to the patient. ? Specifically discussed were ? potential complications including, ? but not limited to, bleeding, ? perforation, infection, missing a ? cancer, and adverse medication ? reactions. The Endoscope was ? introduced through the mouth, and ? advanced to the second part of ? duodenum The upper GI endoscopy was ? accomplished without difficulty. ? The patient tolerated the procedure ? well. ? Findings: ? Esophagogastric landmarks were identified: the Z-line ? was found at 36 cm and the upper extent of the ? gastric folds was found at 36 cm from the incisors. ? The examined esophagus was normal. ? The entire examined stomach was normal. Biopsies were ? taken with a cold forceps for histology ? The examined duodenum was normal. Biopsies for ? histology were taken with a cold forceps for ? evaluation of celiac disease. ? Moderate Sedation: ? Not applicable - See Anesthesia documentation Impression: ?- Esophagogastric landmarks ? identified. ? - Normal stomach. Biopsied. ? - Normal examined duodenum. ? Biopsied. Recommendation: ?- Await pathology results. ? Attending Participation: ? I was present and participated during the entire ? procedure, including non-chavis portions. ? Lashonda Villa MD Lashonda Villa MD 07/07/2023 2:35:32 PM This report has been signed electronically. Number of Addenda: 0 Note Initiated On: 07/07/2023 1:40 PM PROVATION 07/07/2023 1:40 PM EDT Lloyd Keating MD GENERAL SURGICAL ORD ERABLES PROVATION * COLONOSCOPY (07/07/2023 1:39 PM EDT) COLONOSCOPY [facility] Endoscopy Procedure Date: 07/07/2023 1:39 PM ? Patient Name: Loida Roque ? Date of : 1970 ? Age: 53 ? Order #: [id number] ? Instrument Name: [id number]- [id number] ? Procedure: ? Colonoscopy Indications: ? Abdominal pain, Diarrhea Providers: ? Lashonda Villa MD, Meadow ? Mercedes San Lori Agan Referring MD: ? Medicines: ? Monitored Anesthesia Care Complications: ? No immediate complications. Procedure: ? Pre-Anesthesia Assessment: ? - Prior to the procedure, a History ? and Physical was performed, and ? patient medications and allergies ? were reviewed. The patient's ? tolerance of previous anesthesia ? was also reviewed. The risks and ? benefits of the procedure and the ? sedation options and risks were ? discussed with the patient. All ? questions were answered, and ? informed consent was obtained. ? Prior Anticoagulants: The patient ? has taken heparin, last dose was ? day of procedure. ASA Grade ? Assessment: III - A patient with ? severe systemic disease. After ? reviewing the risks and benefits, ? the patient was deemed in ? satisfactory condition to undergo ? the procedure. ? The procedure, indications, ? benefits, risks and alternatives ? were explained to the patient. ? Specifically discussed were ? potential complications including, ? but not limited to, bleeding, ? perforation, infection, missing a ? cancer, and adverse medication ? reactions. The patient was placed ? in the left lateral decubitus ? position, and a digital rectal exam ? was performed. The Colonoscope was ? inserted in the anus and under ? direct visualization, advanced to ? the cecum, identified by ? appendiceal orifice and ileocecal ? valve. Careful inspection was made ? as the colonoscope was withdrawn. ? The colonoscopy was performed ? without difficulty. The patient ? tolerated the procedure well. The ? quality of the bowel preparation ? was evaluated using the BBPS ? ([place] Bowel Preparation Scale) ? with scores of: Right Colon = 3, ? Transverse Colon = 3 and Left Colon ? = 3 (entire mucosa seen well with ? no residual staining, small ? fragments of stool or opaque ? liquid). The total BBPS score ? equals 9. The ileocecal valve, ? appendiceal orifice, and rectum ? were photographed. ? Findings: ? The perianal and digital rectal examinations were ? normal. ? A diffuse area of mild melanosis was found in the ? entire colon. ? The sigmoid colon, descending colon, transverse ? colon, ascending colon and cecum appeared normal. ? Biopsies for histology were taken with a cold forceps ? from the entire colon for evaluation of microscopic ? colitis. Estimated blood loss: none. ? The retroflexed view of the distal rectum and anal ? verge was normal and showed no anal or rectal ? abnormalities. ? Moderate Sedation: ? Not applicable - See Anesthesia documentation Impression: ?- Melanosis in the colon. ? - The sigmoid colon, descending ? colon, transverse colon, ascending ? colon and cecum are normal. ? Biopsied. ? - The distal rectum and anal verge ? are normal on retroflexion view. Recommendation: ?- Await pathology results. ? - Return patient to hospital [facility] ? for ongoing care. ? - Resume heparin at prior dose ? today. Refer to managing physician ? for further adjustment of therapy. ? Procedure Code(s): ? --- Professional --- ? 66600, Colonoscopy, flexible; with ? biopsy, single or multiple CPT copyright 2021 [employer]. All rights reserved. The codes documented in this report are preliminary and upon woods overseer review may be revised to meet current compliance requirements. Attending Participation: ? I was present and participated during the entire ? procedure, including non-chavis portions. ? Lashonda Villa MD _ Lashonda Villa MD 07/07/2023 3:03:36 PM This report has been signed electronically. Number of Addenda: 0 Note Initiated On: 07/07/2023 1:39 PM PROVATION 07/07/2023 1:39 PM EDT Unknown GENERAL SURGICAL ORD ERABLES PROVATION * Campylobacter Antigen (07/07/2023 12:10 PM EDT) Campylobacter Ag Immunoassay Negative for Campylobacter Antigen [facility] Stool 07/07/2023 12:1 0 PM EDT 07/07/2023 12:53 PM EDT Narrative Resulting Agency Comment Spec In Lab Ailyn Knight MD MICROBIOLOGY - GENER AL ORDERABLES Performing Organization Address City/[facility]/ZIP Co de Phone Number [facility] [place] [address] * Shiga Toxin Detection (07/07/2023 12:10 PM EDT) Shiga Toxin Assay EIA Negative for Shiga Toxin 1 EIA Negative for Shiga Toxin 2 [facility] Stool 07/07/2023 12:1 0 PM EDT 07/07/2023 12:53 PM EDT Narrative Resulting Agency Comment Spec In Lab Ailyn Knight MD MICROBIOLOGY - GENER AL ORDERABLES Performing Organization Address [facility] Co de Phone Number [facility] [place] [address] * Stool culture (07/07/2023 12:10 PM EDT) Stool Culture No enteric pathogens isolated [facility] Stool 07/07/2023 12:1 0 PM EDT 07/07/2023 12:53 PM EDT Narrative Resulting Agency Comment Spec In Lab Ailyn Knight MD MICROBIOLOGY - GENER AL ORDERABLES Performing Organization Address City/[facility]/ZIP Co de Phone Number [facility] [place] [address] * Giardia/Cryptosporidium Antigens ([facility]P/APD/[facility]) (07/07/2023 12:38 AM EDT) Giardia Screen Negative Negative [facility] Comment:Examination for othe r intestinal parasites requires foreign travel history. Cryptosporidium Screen Negative Negative [facility] Stool 07/07/2023 12:3 8 AM EDT 07/07/2023 7:56 AM EDT Narrative Resulting Agency Comment Spec In Lab Ailyn Knight MD MICROBIOLOGY - GENER AL ORDERABLES [facility] [place] [address] * Lipase (07/05/2023 5:44 PM EDT) Pathologist [facility] Lipase 17 0 - 60 unit/L [facility] Blood 07/05/2023 5:44 PM EDT 07/05/2023 6:00 PM EDT Narrative Resulting Agency Comment Spec In Lab Lloyd Keating MD CHEMISTRY ORDERABLES Performing Organization Address City/[facility]/ZIP Co de Phone Number [facility] [place] [address] * Amylase (07/05/2023 5:44 PM EDT) Pathologist [facility] Amylase 35 28 - 100 unit/L [facility] Blood 07/05/2023 5:44 PM EDT 07/05/2023 6:00 PM EDT Narrative Resulting Agency Comment Spec In Lab Lloyd Keating MD CHEMISTRY ORDERABLES Performing Organization Address [facility] Co de Phone Number [facility] [place] [address] * XR Chest One View (07/03/2023 3:18 PM EDT) Only the most recent of2 resultswithin the time period is included. WORKSTATION ID [id number] DH RAD Anatomical Region Laterality Modality Chest N/A Digital Radiogra phy Impressions 07/03/2023 3:27 PM EDT No pulmonary edema or pleural effusion Thank you for letting us participate in the care of this patient. ??If you are a health care provider and have any questions regarding this report, please contact the number below. ??For patients who have questions please contact the health acute care clinical nurse specialist that requested 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 ? Narrative 07/03/2023 3:27 PM EDT EXAMINATION: XR CHEST ONE VIEW CLINICAL HISTORY: Acute onset shortness of breath, concern for CHF TECHNIQUE: Portable AP view of the chest COMPARISON: 06/22/2023 FINDINGS: The cardiac silhouette is enlarged The lungs are clear. No pleural effusion or pneumothorax Procedure Note Itz Hayward MD - 07/03/2023 EXAMINATION: XR CHEST ONE VIEW CLINICAL HISTORY: Acute onset shortness of breath, concern for CHF TECHNIQUE: Portable AP view of the chest COMPARISON: 06/22/2023 FINDINGS: The cardiac silhouette is enlarged The lungs are clear. No pleural effusion or pneumothorax IMPRESSION No pulmonary edema or pleural effusion Thank you for letting us participate in the care of this patient. If youare a health care provider and have any questions regarding this report,please contact the number below. For patients who have questions please contactthe health acute care clinical nurse specialist that requested 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 Lino Edmonds MD IMG DX ORDERABLES * Arterial Duplex Leg, Unil (07/03/2023 9:34 AM EDT) VB Text Report Department: Vascular Surgery Lab Patient: [id number] (LOIDA ROQUE) CPT: 01731 Referring Physician: LINO EDMONDS ?? Phone: Indications: ??right groin pain after femoral access, ? pseudoaneurysm Findings: Right ? PSV (cm/s) ??EDV ?? Common Femoral Artery, Proximal ?118 ?? 16 ?? Common Femoral Artery, Mid ?88 ?9 ?? Common femoral artery, Distal ? 97 ?? 12 ?? Profunda Femoris Artery, Proximal ? 70 ?5 ?? Superficial Femoral Artery, Proximal ? 120 ?0 ?? Interpretation: RIGHT: Patent common femoral, proximal profunda femoris and proximal superficial femoral arteries without evidence of stenosis, pseudoaneurysm or other arterial injury. There is no identifiable fluid collection within the right groin. Patent and fully compressible common femoral vein that responds normally to augmentation maneuvers. The common femoral vein is slightly pulsatile, however there is no evidence of an arteriovenous malformation. Comparison: No previous study in our vascular lab database for comparison. Notification: Dr. Gauri Vega was informed of these preliminary findings. Electronically Signed by: CARLOTA CONTRERAS MD on 2023-07-05 04:12:30 PM [facility] VB Text Report End of Report [facility] 07/03/2023 9:34 AM EDT Lino Edmonds MD VASCULAR ORDERABLES [facility] * VS Arteriogram Mesenteric Vascular Surgery (07/02/2023 1:32 PM EDT) Anatomical Region Laterality Modality X-Ray Angiograph y Narrative 07/07/2023 12:45 PM EDT Vascular Surgery Interventional Procedure Note Pre-Procedure Diagnosis: Mesenteric stenosis Post-Procedure Diagnosis: Same Procedure: - Rt. femoral ??arterial access with fluoroscopic and ultrasound guidance - second order selective catheterization of superior mesenteric artery -6 mm X 29 mm VBX placement in the superior mesenteric artery Surgeon(s): MD Henrietta Glover MD Intra-procedural Medications: Versed dose: 1.5 ??mg Fentanyl dose: 75 mcg Local anesthetic: 10 cc 1% lidocaine Heparin: Yes 93240 ?? Units Protamine: No ??mg Antibiotics: Ancef Fluoro Time: 9 min Contrast: 65 mL Sheath Size: ??7 Fr Findings: -Flush aortography of the visceral vasculature was performed. ??This demonstrated a widely patent celiac artery, and a patent mesenteric artery with stenosis in the most proximal portion. - The superior mesenteric artery was selectively cannulated, and a 8 mm X 29 mm VBX stent graft was deployed. ??No post dilation was performed. ??The mesenteric artery was free of any stenosis or dissection following stenting. Procedure in detail: The patient was properly identified in the pre-operative holding area. After discussions of the risks and benefits, operative consent was obtained. The patient was brought to the angiography suite and placed on the angio table. The patient was prepped and draped in the usual sterile fashion. A time-out was performed by the attending surgeon confirming the patient, the intended procedure, the side of intervention and equipment needed. Split doses of fentanyl and versed were administered for conscious sedation by the Interventional Radiology nurse ??during continuous monitoring of pulse, blood pressure and oxygen saturation. After injection of local anesthetic, percutaneous access was obtained via the Rt. femoral ?? artery under fluoroscopic and ultrasound guidance using a micro puncture technique. A cope wire was inserted and upsized to a 5French sheath over a J-wire. A 5F flush catheter was then advanced into the infrarenal aorta over the wire. Diagnostic arteriography was performed with the above findings. We exchanged the sheath for a 7 Portuguese side guider steerable sheath over a stiff wire. ??A Glidewire and Kumpe catheter were used to selectively cannulate the superior mesenteric artery. ??Direct angiography of the superior mesenteric artery was performed, confirming the results of the nonselective aortography performed. ??The lesion was predilated with a 4 mm x 40 mm Chester balloon, and then a 6 mm X 29 mm VBX stent graft was deployed. ??Selective mesenteric angiography demonstrated a satisfactory result with resolution of the lesion and no dissection or embolization in the mesenteric artery. Instrumentation was withdrawn. A Pro-glide was deployed. Manual pressure was then held for 10 minutes until adequate hemostasis was obtained. The wound was dressed with a sterile gauze and tegaderm. The patient was taken to the recovery room having suffered no apparent untoward event. Dr. Way was present for the entire procedure. Henrietta Judge MD 07/07/2023 10:48 AM Ailyn Knight MD IMG IR ORDERABLES * US Abdomen Limited (06/28/2023 12:22 PM EDT) WORKSTATION ID [id number] RAD Anatomical Region Laterality Modality Abdomen Ultrasound 06/28/2023 12:2 0 PM EDT Impressions 06/28/2023 2:08 PM EDT 1. ??Normal gallbladder. Specifically, no cholelithiasis or evidence of acute cholecystitis. No biliary ductal dilatation. 2. ??Normal sonographic appearance the liver and right kidney. 3. ??Limited evaluation of the pancreas, partially obscured by bowel gas. I have personally reviewed the image(s) and the resident's interpretation and agree with the findings, Sigrid Owens MD at 06/28/2023 2:02 PM Thank you for letting us participate in the care of this patient. If you are a health care provider and have any questions regarding this report, please contact the number above. For patients who have questions, please contact the health acute care clinical nurse specialist that requested 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 ?Sigrid Owens, E Space Buyer Electronically Signed Final Report ?? 06/28/2023 02:08 pm Narrative 06/28/2023 2:08 PM EDT Abdominal ? (Signed Final 06/28/2023 02:08 pm) PATIENT INFO: ID #: ? [id number] ?: ??[birth year] (53 yrs)(F) Name: ? LOIDA ?Visit Date: 06/28/2023 12:20 pm ? ROHAN PERFORMED BY: Attending: ?Graciela JOHN, Sigrid Munoz Resident: ? Karo JOHN, Rafaela Performed By: ? Rick STANFORD, ??Deena Referred By: ?AILYN KNIGHT Location: ? [place] SERVICE(S) PROVIDED: UABDLIM - Abdominal Limited Survey Single ? [id number] Organ or Quadrant - [id number] INDICATIONS: RUQ pain, R/o Gall bladder colic, cholelithiasis COMPARISON: CT Abdomen/Pelvis 06/21/23 ------ LIVER: ------ Right Lobe Length: ?? 16.2 ?? cm Echogenicity/Echotexture: ?? Normal Comment: ?No focal lesion seen. GALLBLADDER: Cholelithiasis: ?No stones visualized Wall Thickness: ?Normal wall thickness Focal Tenderness: ?Negative sonographic Vaughn's sign Comment: ?No pericholecystic fluid or wall hyperemia seen. BILIARY TRACT: Intrahepatic Ducts: ?? Normal Extrahepatic Ducts: ?? Normal Common Duct Size: ? 5.4 ? mm --------- PANCREAS: --------- Head: ?Limited visualization due to ?Size: ?overlying bowel Tail: ?Limited visualization due to ?Size: ?overlying bowel Body: ?Limited visualization due to ?Size: ?overlying bowel RIGHT KIDNEY: Size (cm) ?L: ??11.3 Cortical Thickness: ?Normal Cortical Echogenicity: ?? Normal Hydronephrosis: ?No sonographic evidence Comment: ?No renal calculi seen. ------ AORTA: ------ Measurements (cm): Proximal ? AP: ?? 2.1 Comment: ?Normal in caliber where visualized. ---- IVC: ---- Normal in caliber where visualized. FLUID COLLECTIONS: No ascites seen in the imaged RUQ Procedure Note Sigrid Owens MD - 06/28/2023 Abdominal (Signed Final 06/28/2023 02:08 pm) PATIENT INFO: ID #: [id number] : [birth year] (53 yrs)(F) Name: LOIDA Visit Date: 06/28/2023 12:20 pm ROHAN PERFORMED BY: Attending: Sigrid Owens MD Resident: Rafaela Huddleston MD Performed By: Deena Cabrera RDMS Referred By: AILYN KNIGHT Location: [place] SERVICE(S) PROVIDED: UABDLIM - Abdominal Limited Survey Single 99193 Organ or Quadrant - [id number] INDICATIONS: RUQ pain, R/o Gall bladder colic, cholelithiasis COMPARISON: CT Abdomen/Pelvis 06/21/23 ------ LIVER: ------ Right Lobe Length: 16.2 cm Echogenicity/Echotexture: Normal Comment: No focal lesion seen. GALLBLADDER: Cholelithiasis: No stones visualized Wall Thickness: Normal wall thickness Focal Tenderness: Negative sonographic Vaughn's sign Comment: No pericholecystic fluid or wall hyperemia seen. BILIARY TRACT: Intrahepatic Ducts: Normal Extrahepatic Ducts: Normal Common Duct Size: 5.4 mm --------- PANCREAS: --------- Head: Limited visualization due to Size: overlying bowel Tail: Limited visualization due to Size: overlying bowel Body: Limited visualization due to Size: overlying bowel RIGHT KIDNEY: Size (cm) L: 11.3 Cortical Thickness: Normal Cortical Echogenicity: Normal Hydronephrosis: No sonographic evidence Comment: No renal calculi seen. ------ AORTA: ------ Measurements (cm): Proximal AP: 2.1 Comment: Normal in caliber where visualized. ---- IVC: ---- Normal in caliber where visualized. FLUID COLLECTIONS: No ascites seen in the imaged RUQ IMPRESSION 1. Normal gallbladder. Specifically, no cholelithiasis or evidence of acute cholecystitis. No biliary ductal dilatation. 2. Normal sonographic appearance the liver and right kidney. 3. Limited evaluation of the pancreas, partially obscured by bowel gas. I have personally reviewed the image(s) and the resident's interpretation and agree with the findings, Sigrid Owens MD at 06/28/2023 2:02 PM Thank you for letting us participate in the care of this patient. If you are a health care provider and have any questions regarding this report, please contact the number above. For patients who have questions, please contact the health acute care clinical nurse specialist that requested 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 Sigrid Owens, E Space Buyer Electronically Signed Final Report 06/28/2023 02:08 pm Ailyn Knight MD IMG US GEN ORDERABLE S * Urinalysis Microscopic Exam (06/26/2023 11:09 AM EDT) RBC UA 0 0 - 4 /HPF [facility] WBC UA 3 0 - 5 /HPF [facility] Squam Epith UA 1 <=4 /HPF [facility] Hyaline Cast UA 1 0 - 2 /LPF [facility] Clean Catch Urine 06/26/2023 11:09 AM EDT 06/26/2023 5:45 PM EDT Narrative Resulting Agency Comment Spec In Lab Ailyn Knight MD URINE ORDERABLES [facility] [place] [address] * (ABNORMAL) Urinalysis with reflex Culture (06/26/2023 11:09 AM EDT) Glucose UA Negative Negative mg/dL [facility] Protein UA Negative Negative mg/dL [facility] Bilirubin UA Negative Negative mg/dL [facility] Comment: Clinical correlation required for positive Urine Bilirubin results as false positive may occur with some drugs and drug related products. If a false positive is suspected a serum total bilirubin should be considered if clinically indicated. Urobilinogen UA Normal Normal mg/dL [facility] pH UA 6.0 5.0 - 8.0 [facility] Blood UA Negative Negative mg/dL [facility] Ketones UA Negative Negative mg/dL [facility] Nitrite UA Negative Negative [facility] Leukocytes UA Trace(A) Negative [facility] Appearance UA Clear Clear [facility] Spec [place] UA 1.013 1.005 - 1.030 [facility] Color UA Yellow Yellow [facility] Culture Reflexed No [facility] Clean Catch Urine 06/26/2023 11:09 AM EDT 06/26/2023 5:45 PM EDT Narrative Resulting Agency Comment Spec In Lab Ailyn Knight MD URINE ORDERABLES [facility] [place] [address] * ECHO LMTD W CONTRAST W LMTD SPEC DOPP COLOR DOPP (06/22/2023 4:25 PM EDT) Anatomical Region Laterality Modality Cardiac Other 06/22/2023 2:49 PM EDT Narrative 06/22/2023 4:42 PM EDT [address] [place] [address] ? Echocardiogram Report Name: LOIDA ROQUE ?Study Date: 06/22/2023 02:49 PM ?Patient Location: [id number] 0466 A ??HR: 57 : 1970 ?Height: 162 cm ? Account: [id number] Age: 53 yrs ?Weight: 102 kg Gender: Female ? BSA: 2.1 m2 Ordering Physician: AILYN KNIGHT Referring Physician: HARTMAN, AJ J History: Chest pain Interpreting Fellow: Rogers Bradford. Interpretation Summary Normal left ventricle size with mildly reduced LV systolic function. Mild global hypokinesis. LV ejection fraction is approximately 50%. Normal right ventricle. No significant valvular abnormalities. On comparison to the prior echo dated 04/17/2023, there has been a slight decrease in LV systolic function. Procedure Complete-[id number]. Satisfactory quality. There is normal sinus rhythm. Left Ventricle Left ventricle is of normal size. Wall thickness is normal. Left ventricular systolic function is mildly reduced. The left ventricular ejection fraction is 50% by Reyes's biplane. There are no segmental wall motion abnormalities. There is no left ventricular thrombus. Right Ventricle The right ventricle is of normal size. Right ventricular systolic function is normal. Left Atrium The left atrium is mildly dilated. There is no evidence for a patent foramen ovale. Right Atrium The right atrium is normal. Aortic Valve The aortic valve is probably trileaflet. There is no aortic stenosis. There is no aortic regurgitation. Mitral Valve The mitral valve is structurally normal. There is mild mitral regurgitation. Tricuspid Valve The tricuspid valve is not well visualized. There is no tricuspid regurgitation. Pulmonic Valve There is no valvular pulmonic stenosis. There is no pulmonic valve regurgitation. Great Arteries The aortic root is not well visualized. The ascending aorta is not well visualized. Ejection Fraction ?2D Measurements ? Volumes EF(MOD-bp): 50.0 % ?IVSd: 1.0 cm ? LAV(MOD- bp) Indexed: ?LVIDd: 4.9 cm ?36.0 ml/m2 ?LVIDs: 3.0 cm ?EDV(MOD-bp) Indexed: ?LVPWd: 1.0 cm ?RWT: 0.41 {ratio} ?34.2 ml/m2 ?LV mass(C)d: 179.6 grams ? ESV(MOD- bp) Indexed: ? 17.1 ml/m2 ?LV mass(C)dI: 87.5 grams/m2 ?SV(LVOT): 30.9 ml ?LVOT diam: 1.5 cm ?TAPSE_phl: 1.3 cm ?SI(LVOT): 15.1 ml/m2 Doppler LV V1 VTI: 18.1 cm Ao V2 VTI: 23.0 cm Ao Max: 137.6 cm/sec Ao valve max: 7.6 mmHg Ao valve mean: 3.4 mmHg MV E max sierra: 58.8 cm/sec MV A max sierra: 30.9 cm/sec MV E/A: 1.9 MV dec time: 0.24 sec Lat Peak E' Sierra: 4.0 cm/sec E/ e' (lat): 14.6 Med Peak E' Sierra: 4.0 cm/sec E/e' (med): 14.6 E/e' Average: 14.6 MESFIN(I,D): 1.3 cm2 Dimensionless index Aov: 0.79 MR ERO: 0.14 cm2 MR PISA radius: 0.50 cm Mitral Regurgitation Volume: 23.0 ml MR volume: 22.6 ml I ?WMSI = 1.00 ? % Normal = 100 ?Segments ??Size X - Cannot ?2 - ?4 - ?1-2 ? small Interpret ?1 - Normal ?? Hypokinetic 3 - Akinetic Dyskinetic ?? 3-5 ? moderate 5 - ? 6-14 ?large Aneurysmal ?15-16 ?? diffuse Procedure Note Jose Gallegos MD - 06/22/2023 [address] [place] [id number] Echocardiogram Report Name: LOIDA ROQUE Study Date: 06/22/2023 02:49 PM Patient Location: [address] HR:57 : 1970 Height: 162 cmAccount: [id number] Age: 53 yrs Weight: 102 kg Gender: Female BSA: 2.1 m2 Ordering Physician: AILYN KNIGHT Referring Physician: AJ HARTMAN History: Chest pain Interpreting Fellow: Rogers Bradford. Interpretation Summary Normal left ventricle size with mildly reduced LV systolic function. Mildglobal hypokinesis. LV ejection fraction is approximately 50%. Normal right ventricle. No significant valvular abnormalities. On comparison to the prior echo dated 04/17/2023, there has been a slightdecrease in LV systolic function. Procedure Complete-[id number]. Satisfactory quality. There is normal sinus rhythm. Left Ventricle Left ventricle is of normal size. Wall thickness is normal. Leftventricular systolic function is mildly reduced. The left ventricular ejectionfraction is 50% by Reyes's biplane. There are no segmental wall motion abnormalities.There is no left ventricular thrombus. Right Ventricle The right ventricle is of normal size. Right ventricular systolic functionis normal. Left Atrium The left atrium is mildly dilated. There is no evidence for a patentforamen ovale. Right Atrium The right atrium is normal. Aortic Valve The aortic valve is probably trileaflet. There is no aortic stenosis.There is no aortic regurgitation. Mitral Valve The mitral valve is structurally normal. There is mild mitralregurgitation. Tricuspid Valve The tricuspid valve is not well visualized. There is no tricuspidregurgitation. Pulmonic Valve There is no valvular pulmonic stenosis. There is no pulmonic valveregurgitation. Great Arteries The aortic root is not well visualized. The ascending aorta is not well visualized. Ejection Fraction 2D Measurements Volumes EF(MOD-bp): 50.0 % IVSd: 1.0 cm LAV(MOD-bp)Indexed: LVIDd: 4.9 cm 36.0 ml/m2 LVIDs: 3.0 cm EDV(MOD-bp)Indexed: LVPWd: 1.0 cm RWT: 0.41 {ratio} 34.2 ml/m2 LV mass(C)d: 179.6 grams ESV(MOD-bp)Indexed: 17.1 ml/m2 LV mass(C)dI: 87.5 grams/m2 SV(LVOT): 30.9ml LVOT diam: 1.5 cm TAPSE_phl: 1.3 cm SI(LVOT): 15.1ml/m2 Doppler LV V1 VTI: 18.1 cm Ao V2 VTI: 23.0 cm Ao Max: 137.6 cm/sec Ao valve max: 7.6 mmHg Ao valve mean: 3.4 mmHg MV E max sierra: 58.8 cm/sec MV A max sierra: 30.9 cm/sec MV E/A: 1.9 MV dec time: 0.24 sec Lat Peak E' Sierra: 4.0 cm/sec E/ e' (lat): 14.6 Med Peak E' Sierra: 4.0 cm/sec E/e' (med): 14.6 E/e' Average: 14.6 MESFIN(I,D): 1.3 cm2 Dimensionless index Aov: 0.79 MR ERO: 0.14 cm2 MR PISA radius: 0.50 cm Mitral Regurgitation Volume: 23.0 ml MR volume: 22.6 ml I WMSI = 1.00 % Normal = 100 SegmentsSize X - Cannot 2 - 4 - 1-2small Interpret 1 - Normal Hypokinetic 3 - Akinetic Dyskinetic 3-5moderate 5 - 6-14large Aneurysmal 15-16diffuse Ailyn Knight MD ECHO ORDERABLES * Duplex for DVT, Arm, Unilat (06/22/2023 2:24 PM EDT) VB Text Report Department: Vascular Surgery Lab Patient: [id number] (LOIDA ROQUE) CPT: [id number] Referring Physician: AILYN KNIGHT ?? Phone: Indications: RIGHT UE swelling Findings: RIGHT: The axillary, brachial, cephalic and basilic veins are patent and fully compressible with no evidence of thrombus. The internal jugular vein is patent and fully compressible with no evidence of thrombus. While compression maneuvers cannot be performed on the subclavian or innominate veins, there is no pulsed Doppler or color Doppler evidence to suggest thrombus in these veins. Interpretation: RIGHT: No evidence of upper extremity deep or superficial venous thrombus. No evidence of internal jugular vein thrombus. Comparison: ?? No previous study in our vascular lab database for comparison. 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 Advance Directives and Livin g Will 02/11/2023 2:32 PM 02/11/23 * Attempt Cardiopulmonary Resuscitation - Inpatient (Latest Code Status on File) Date Activated Date Inactivated Comments 08/28/2023 8:49 PM 09/10/2023 7:32 PM Question Answer Comments Code Status decision made by: Patient * Attempt Cardiopulmonary Resuscitation - Inpatient Date Activated Date Inactivated Comments 06/15/2023 1:43 AM 07/09/2023 6:49 PM Question Answer Comments Code Status decision made by: Patient * Attempt Cardiopulmonary Resuscitation - Inpatient Date Activated Date Inactivated Comments 04/17/2023 1:50 AM 04/22/2023 8:01 PM Question Answer Comments Code Status decision made by: Patient * Attempt Cardiopulmonary Resuscitation - Inpatient Date Activated Date Inactivated Comments 02/08/2023 8:50 PM 02/11/2023 6:12 PM Question Answer Comments Code Status decision made by: Patient * Attempt Cardiopulmonary Resuscitation - Inpatient Date Activated Date Inactivated Comments 09/26/2022 4:23 PM 09/28/2022 7:15 PM Question Answer Comments Code Status decision made by: Patient Care Teams Fire Services Plumber Relationship Specialty Start Date End Date Polo Pearce PA [address] [place] [address] PCP - General Internal Medicine 06/09/21
--- OUTSIDE RECORDS SUMMARY | 2023-09-20 14:29 | XMS_ITS | Encounter Summary ---
Author Organization [facility], [facility] Address [facility] [place] [address] Care Team Providers Care Sports Development Officer Name Role Phone Polo Pearce Primary Care Provider [phone] Encounter Details Date Type Department Care Team (Latest Contact Info) Description 07/29/2023 Travel Social History Tobacco Use Types Packs/Day Years Used Date Smoking Tobacco: Never Smokeless Tobacco: Never Alcohol Use Standard Drinks/Week Comments Never 0 (1 standard drink = 0.6 oz pur e alcohol) [facility] Utilities Answer Date Recorded In the past 12 months has th e electric, gas, oil, or water company threatened to shut off services in your home? Yes 06/15/2023 Hunger Vital Sign Answer Date Recorded Within the past 12 months, y ou worried that your food would run out before you got the money to buy more. Sometimes true Within the past 12 months, t he food you bought just didn't last and you didn't have money to get more. Sometimes true 11/2023 PRAPARE - Transportation Answer Date Re corded In the past 12 months, has l ack of transportation kept you from medical appointments or from getting medications? Yes 11/2023 In the past 12 months, has l ack of transportation kept you from meetings, work, or from getting things needed for daily living? Yes 06/15/2023 Housing Stability Vital Sign Answer Mitchell [...] place to sleep or slept in a skilled nursing (including now)? No 06/15/2023 [facility] Inpatient Questions Answer Date Recorded Does Anyone Try to Keep You From Having Contact with Others or Doing Things Outside Your Home? no 06/14/2023 Feels Threatened by Someone no 10/2023 Feels Unsafe at Home or Work/School no 06/14/2023 Physical Signs of Abuse Present no 06/14/2023 Sex and Gender Information Value Date Recorded Sex Assigned at Not on file Gender Identity Not on file Sexual Orientation Not on file documented as of this encounter Plan of Treatment Upcoming Encounters Date Type Department Care Team (Late st Contact Info) Description 10/08/2023 8:30 AM EDT Tech [place] [address] Jose Cook 10/08/2023 9:30 AM EDT Office Visit [place] [address] MD [facility] [place] [address] 10/21/2023 10:30 AM EDT Appointment [place] [address] Mary Reyes [facility] [place] [address] 10/21/2023 11:30 AM EDT Appointment [place] [phone] Mary Reyes DEVELOPMENT MANAGER [facility] [place] [address] 10/21/2023 12:30 PM EDT Appointment [place] [address] Mary Reyes, [facility] [place] [address] 10/21/2023 1:30 PM EDT Appointment [place] [address] Mary Reyes, [facility] [place] [address] 10/21/2023 2:30 PM EDT Appointment [place] [address] Mary Reyes, [facility] [place] [address] 10/26/2023 4:00 PM EDT Office Visit Cardiology at [address] [phone] Jaspreet Kinsey MD [facility] [place] [address] 10/28/2023 9:00 AM EDT Office Visit [place] [address] 10/29/2023 10:00 AM EDT Clinical Support [place] [address] 10/29/2023 10:15 AM EDT Procedure visit [place] [address] 11/01/2023 5:00 PM EDT Office Visit [place] [address] Selene Browning, PhD [facility] [place] [address] 11/22/2023 4:40 PM EDT Office Visit Cardiology at [address] [phone] Porsha Mcdaniels MD [facility] [place] [address] 12/13/2023 10:00 AM EDT Clinical Support [place] [phone] [facility] [place] [address] documented as of this encounter Visit Diagnoses Not on filedocumented in this encounter Care Teams Sports Development Officer Relationship Specialty Start Date End Date Polo Pearce PA [address] [place] [address] PCP - General Internal Medicine 06/09/21 documented as of this encounter
--- OUTSIDE RECORDS SUMMARY | 2023-09-20 14:29 | XMS_ITS | Encounter Summary ---
Author Organization [facility] [place] [address] Care Team Providers Care Billet Assembler Name Role Phone Polo Pearce Primary Care Provider [phone] Encounter Details Date Type Department Care Team (Late st Contact Info) Description 07/13/2023 Telephone Cardiology at [address] [phone] Sydney Gamez RN Social History Tobacco Use Types Packs/Day Years Used Date Smoking Tobacco: Never Smokeless Tobacco: Never Alcohol Use Standard Drinks/Week Comments Never 0 (1 standard drink = 0.6 oz pur e alcohol) [facility] Utilities Answer Date Recorded In the past 12 months has e electric, gas, oil, or water company [...] place to sleep or slept in a penitentiary (including now)? No 06/15/2023 [facility] Inpatient Questions Answer Date Recorded [...] on file documented as of this encounter Miscellaneous Notes * Telephone Encounter - Sydney Gamez RN - 07/13/2023 12:41 PM EDT Pt called asking for a return to work letter - states she is followed by but also and . She stated she needs the letter to outline any restrictions and/or what she CAN do while at work. She would like the letter emailed to her at [email or web address] when completed. Will forward to her providers for advisement. She was treated for an NSTEMI on 06/14/23 by . The following restrictions were noted in her discharge summary: Patient Instructions Call your doctor if: Chest pain, shortness of breath, pain or swelling in legs occurs. If you have non-emergent questions between now and the time of your follow up appointments: During 8am-5pm Wednesday through Wednesday call [phone] to speak with a nurse in the cardiology clinic All other times call [phone] and ask to speak to the software licensing executive carbon dioxide operator. Return to work: One week Driving: No driving for 48 hours after catheterization. Follow up Appointments: PCP JOCY Franco [phone] 11:30am on July 19. Cardiology office will call you regarding your appointment with Dr. Kinsey. Will reach out to provider to see if additional restrictions are required beyond what is listed above, and respond to patient accordingly. documented in this encounter Plan of Treatment Upcoming Encounters Date Type Department Care Team (Late st Contact Info) Description 10/08/2023 8:30 AM EDT Tech Visit Vascular Lab at [place] [phone] Jose Cook 10/08/2023 9:30 AM EDT Office Visit [place] [address] MD [facility] [place] [address] 10/21/2023 10:30 AM EDT Appointment Nuclear Medicine at [place] [phone] Mary Reyes [facility] [place] [address] 10/21/2023 11:30 AM EDT Appointment [place] [phone] Mary Reyes [facility] [place] [address] 10/21/2023 12:30 PM EDT Appointment [place] [address] Mary Reyes [facility] [place] [address] 10/21/2023 1:30 PM EDT Appointment Nuclear Medicine at [place] [phone] Mary Reyes, ROM [facility] [address] 10/21/2023 2:30 PM EDT Appointment Nuclear Medicine at [place] [phone] Mary Reyes APRN [facility] [address] 10/26/2023 4:00 PM EDT Office Visit Cardiology at [address] [phone] Jaspreet Kinsey MD [facility] [place] [address] 10/28/2023 9:00 AM EDT Office Visit [place] [address] 10/29/2023 10:00 AM EDT Clinical Support [place] [address] 10/29/2023 10:15 AM EDT Procedure visit [place] [address] 11/01/2023 5:00 PM EDT Office Visit Gastroenterology at [place] [phone] Selene Browning, PhD [facility] [place] [address] 11/22/2023 4:40 PM EDT Office Visit Cardiology at [address] [phone] Porsha Mcdaniels MD [facility] [address] 12/13/2023 10:00 AM EDT Clinical Support [place] [address] Lucero Romero, [place] [facility] [address] documented as of this encounter Visit Diagnoses Not on filedocumented in this encounter Care Teams Billet Assembler Relationship Specialty Start Date End Date Polo Pearce PA [address] [place] [address] PCP - General Internal Medicine 06/09/21 documented as of this encounter
--- OUTSIDE RECORDS SUMMARY | 2023-09-20 14:29 | XMS_ITS | Encounter Summary ---
[place] [address] Care Team Providers Care Kilnman Name Role Phone Polo Pearce Primary Care Provider [phone] Encounter Details Date Type Department Care Team (Late st Contact Info) Description 08/03/2023 8:30 AM EDT Tech [place] [address] Eladio Boyer Mesenteric ischemia Social History Tobacco Use Types Packs/Day Years Used Date Smoking Tobacco: Never Smokeless Tobacco: Never Alcohol Use Standard Drinks/Week Comments Never 0 (1 standard drink = 0.6 oz pur e alcohol) [facility] Utilities Answer Date Recorded In the past 12 months has e [email or web address], gas, oil, or water [employer] threatened to shut off services in your [...] place to sleep or slept in a longterm (including now)? No 06/15/2023 IPV Inpatient Questions Answer Date Recorded Does [...] AM EDT Tech [place] [phone] Jose Cook 10/08/2023 9:30 AM EDT Office [place] [phone] MD [facility] [place] [address] 10/21/2023 10:30 AM EDT Appointment [place] [phone] Mary Reyes APRN [facility] [place] [address] 10/21/2023 11:30 AM EDT Appointment [place] [phone] Mary Reyes APRN [facility] [place] [address] 10/21/2023 12:30 PM EDT Appointment [place] [address] Mary Reyes [facility] [place] [address] 10/21/2023 1:30 PM EDT Appointment [place] [address] Mary Reyes, [facility] [place] [address] 10/21/2023 2:30 PM EDT Appointment [place] [address] Mary Reyes, [facility] [place] [address] 10/26/2023 4:00 PM EDT Office Visit Cardiology at [address] [phone] Jaspreet Kinsey MD [facility] [place] [address] 10/28/2023 9:00 AM EDT Office Visit [place] [address] 10/29/2023 10:00 AM EDT Clinical Support [place] [address] 10/29/2023 10:15 AM EDT Procedure visit [place] [address] 11/01/2023 5:00 PM EDT Office [place] [address] Selene Browning, PhD [facility] [place] [address] 11/22/2023 4:40 PM EDT Office Visit Cardiology at [address] [phone] Porsha Mcdaniels MD [facility] [place] [address] 12/13/2023 10:00 AM EDT Clinical Support Gastroenterology at [place] [phone] Lucero Romero, [place] [facility] [place] [address] documented as of this encounter Procedures Procedure Name Priority Date/Time Associated Diagnosis Comments MESENTERIC COMPLETE Routine 08/03/2023 8 :36 AM EDT Mesenteric ischemia documented in this encounter Results * Duplex Study Visceral Arteries, Comp (08/03/2023 8:36 AM EDT) VB Text Report Department: Vascular Surgery Lab Patient: [id number] (LOIDA ROQUE) CPT: [id number] Referring Physician: MAMIE MARX ?? Phone: Indications: S/p SMA stenting (07/01) one month f/u, ? patency Findings: Unilateral ? Waveform ? PSV cm/s ??EDV cm/s ??Patent ?? Dary Visceral Aorta ? 71 ?14 ? Celiac Artery, Proximal ??[place]-Biphasic ? 100 ?22 ? Celiac Artery, Mid ? [place]-Biphasic ?99 ?19 ? Celiac Artery, Distal ?[place]-Biphasic ?94 ?18 ? Sup Mes Artery Proximal [...] within mesenteric artery stents may differ from [place] arteries, with thresholds for diagnosis of significant stenosis likely being somewhat higher in stented arteries than [place].% To date, there is no evidence based consensus of stent velocity criteria. Therefore, the current interpretation is based on [place] artery thresholds. Previous Celiac/Mesenteric Studies: Date ? [...] AM EDT Mamie Marx APRN VASCULAR ORDERABLES Performing Organization Address City/State/[facility] Co de Phone Number VASCUBASE documented in this encounter Visit Diagnoses Diagnosis Mesenteric ischemia Unspecified vascular insufficiency of intestine documented in this encounter Care Teams Kilnman Relationship Specialty Start Date End Date Polo Pearce PA [address] [place] [address] PCP - General Internal Medicine 06/09/21 documented as of this encounter
--- OUTSIDE RECORDS SUMMARY | 2023-09-20 14:29 | XMS_ITS | Encounter Summary ---
[place] [address] Care Team Providers Care Ticket Printer Name Role Phone Polo Pearce Primary Care Provider [phone] Reason for Visit * Auth/Cert (Routine) Specialty Diagnoses / Procedures Referred By Jayant harris Referred To Contact Diagnoses NSTEMI (non-ST elevated myocardial infarction) NSTEMI Procedures [place] [address] [facility] Referral ID Status Reason Start Date Expiration Date Visits Re quested Visits Authorized [id number] 1 1 Encounter Details Date Type Department Care Team (Latest Contact Info) Description 08/25/2023 1:05 PM EDT Laboratory Appointment Lab [address]L [place] [address] Heart failure with preserved ejection fraction, unspecified HF chronicity; Chronic kidney disease, unspecified CKD stage; Altered bowel function; Depression, unspecified depression type Social History Tobacco Use Types Packs/Day Years Used Date Smoking Tobacco: Never Smokeless Tobacco: Never Alcohol Use Standard Drinks/Week Comments Never 0 (1 standard drink = 0.6 oz pur e alcohol) [facility] Utilities Answer Date Recorded In the past 12 months has [employer], gas, oil, or water company threatened [...] in a mcfp (including now)? No 06/15/2023 IPV Inpatient Questions [...] AM EDT Tech [place] [phone] Jose Cook 10/08/2023 9:30 AM EDT Office [place] [phone] MD [facility] [place] [address] 10/21/2023 10:30 AM EDT Appointment Nuclear Medicine at [place] [phone] Mary Reyes [facility] [place] [address] 10/21/2023 11:30 AM EDT Appointment Nuclear Medicine at [place] [phone] Mary Reyes [facility] [place] [address] 10/21/2023 12:30 PM EDT Appointment [place] [phone] Mary Reyes [facility] [place] [address] 10/21/2023 1:30 PM EDT Appointment Nuclear Medicine at [place] [phone] Mary Reyes [facility] [place] [address] 10/21/2023 2:30 PM EDT Appointment [place] [address] Mary Reyes [facility] [place] [address] 10/26/2023 4:00 PM EDT Office Visit Cardiology at [address] [phone] Jaspreet Kinsey MD [facility] [place] [address] 10/28/2023 9:00 AM EDT Office Visit [place] [address] 10/29/2023 10:00 AM EDT Clinical Support [place] [address] 10/29/2023 10:15 AM EDT Procedure visit [place] [address] 11/01/2023 5:00 PM EDT Office [place] [phone] Selene Browning, PhD [facility] [place] [address] 11/22/2023 4:40 PM EDT Office Visit Cardiology at [address] [phone] Porsha Mcdaniels MD [facility] [place] [address] 12/13/2023 10:00 AM EDT Clinical [place] [phone] Lucero Romero, ALVA [facility] [place] [address] documented as of this encounter Procedures Procedure Name Priority Date/Time Associated Diagnosis Comments HC IMMUNOGLOBULIN FREE LIGHT CHAINS, SERUM Routine 08/25/2023 11:28 AM EDT Heart failure with preserved ejection fraction, unspecified HF chronicity HC LYME TOTAL (SCREEN) Routine 11:28 AM EDT Heart failure with preserved ejection fraction, unspecified HF chronicity HC IRON BINDING CAPACITY Routine 024 11:28 AM EDT Heart failure with preserved ejection fraction, unspecified HF chronicity HC TISSUE TRANSGLUTAMINASE AB Routine 08/25/2023 11:28 AM EDT Altered bowel function Depression, unspecified depression type HC PCH STRETOCOCCAL ANTIBIODIES Routine 08/25/2023 11:28 AM EDT Heart failure with preserved ejection fraction, unspecified HF chronicity HC DNA AB DS ([place]AG) Routine 08/25/2023 11:28 AM EDT Heart failure with preserved ejection fraction, unspecified HF chronicity HC SERUM PROT. ELECTROPHORESIS Routine 08/25/2023 11:28 AM EDT Heart failure with preserved ejection fraction, unspecified HF chronicity HC IGA, SERUM Routine 08/25/2023 11:28 AM EDT Altered bowel function Depression, unspecified depression type HC IGG, SERUM Routine 08/25/2023 11:28 AM EDT Altered bowel function Depression, unspecified depression type HC FERRITIN, SERUM Routine 08/25/2023 11 :28 AM EDT Heart failure with preserved ejection fraction, unspecified HF chronicity BASIC METABOLIC PANEL (NON-FASTING) Routine 08/25/2023 11:28 AM EDT Chronic kidney disease, unspecified CKD stage documented in this encounter Results * IgA (08/25/2023 11:28 AM EDT) IgA 372 70 - 400 mg/dL [facility] Blood 08/25/2023 11:2 8 AM EDT 08/25/2023 11:37 AM EDT Narrative Resulting Agency Comment Spec In Lab Mary Reyes CRINKLING MACHINE OPERATOR IMMUNOLOGY ORDERAB LES [facility] [place] [address] * IgG (08/25/2023 11:28 AM EDT) Pathologist [facility] IgG 1,114 700 - 1,600 mg/dL [facility] Comment: Pediatric Reference Intervals obtained from the Caliper Reference Interval project. http://www.CardiaLen.ca/caliperproject/index.html Blood 08/25/2023 11:2 8 AM EDT 08/25/2023 11:37 AM EDT Narrative Resulting Agency Comment Spec In Lab Mary Reyes APRN IMMUNOLOGY ORDERAB LES Performing Organization Address [facility] Co de Phone Number [facility] [place] [address] * Tissue transglutaminase, IgA (08/25/2023 11:28 AM EDT) [facility] TTG IgA Ab 0.6 <=10.0 u/ml [facility] Comment: Negative: ??<7 units/mL Indeterminate: 7-10 units/mL Positive: ??>10 units/mL Blood 08/25/2023 11:2 8 AM EDT 08/26/2023 7:26 AM EDT Narrative Resulting Agency Comment Spec In Lab Mary Reyes APRN IMMUNOLOGY ORDERAB LES Performing Organization Address [facility] Co de Phone Number [facility] [place] [address] * (ABNORMAL) Basic Metabolic Panel (non-fasting) (08/25/2023 11:28 AM EDT) [facility] Glucose Lvl 111 65 - 199 mg/dL [facility] Comment:Diabetes: >=200 mg/d L plus symptoms BUN 29(H) 8 - 18 mg/dL [facility] Creatinine 1.41(H) 0.70 - 1.20 mg/dL [facility] Sodium 140 135 - 145 mmol/L [facility] Potassium 3.6 3.5 - 5.0 mmol/L [facility] Comment: Please note: ??Patients with WBC >100,000 may have falsely elevated Potassium levels. ??For accurate Potassium quantification in these patients send serum separator tube (gold top) for subsequent determinations. ??Contact the Clinical Chemistry Laboratory if there are any questions. Chloride 99 98 - 107 mmol/L [facility] CO2 29 22 - 31 mmol/L [facility] Anion Gap 12 5 - 15 mmol/L [facility] Calcium 10.0 8.5 - 10.5 mg/dL [facility] Estimated GFR 44(L) >=60 mL/min/1. 73 m?? [facility] Comment: This patient's estimated GFR [...] and symptoms in addition to eGFR. Blood 08/25/2023 11:2 8 AM EDT 08/25/2023 11:36 AM EDT Narrative Resulting Agency Comment Spec In Lab Lloyd Keating MD CHEMISTRY ORDERABLES [facility] [place] [address] * KATHRINE Antibody Screen (08/25/2023 11:28 AM EDT) Antinuclear Ab Negative Negative [facility] Comment: This antinuclear antibody (KATHRINE) screen is a qualitative test performed using a fluoroenzyme immunoassay on the Sensicore 250 analyzer. This screen is designed to detect antibodies to U1RNP, SS-A/Ro, SS-B/La, centromere B, Scl-70, Dasia-1, and Sm(Alcantar) proteins in serum samples. Antibodies to other nuclear antibodies will not be detected with this assay. This KATHRINE screen is also performed in concert with a quantitative for IgG antibodies to dsDNA. dsDNA Ab 1.0 <=15.0 IU/mL [facility] Comment: <10 negative 10-15 equivocal >15 positive This dsDNA antibody result was generated using a fluoroenzyme immunoassay on the Sensicore 250 analyzer. This quantitative test is designed to detect IgG antibodies directed against double stranded DNA in human serum. The presence of antibodies that recognize dsDNA is a highly specific marker for systemic lupus erythematosus. Please note that as of 12/30/2021 that this testing is performed by the Special Chemistry Laboratory at [facility]. This change in testing location is associated with a change is testing method and reference intervals. Please review the results of this test in association with the posted reference intervals. Blood 08/25/2023 11:2 8 AM EDT 08/26/2023 7:26 AM EDT Narrative Resulting Agency Comment Spec In Lab Jaspreet Kinsey MD IMMUNOLOGY ORDERABLE S [facility] [place] [address] * (ABNORMAL) Protein Electrophoresis, serum (08/25/2023 11:28 AM EDT) Total Prot Elec 7.5 6.1 - 8.0 g/dL [facility] Albumin Elect 4.62 3.20 - 5.20 g/dL [facility] Alpha1-Globul in 0.20 0.10 - 0.30 g/dL [facility] Alpha2-Globul in 0.92(H) 0.40 - 0.90 g/dL [facility] Beta Globulin 0.89 0.50 - 1.00 g/dL [facility] Gamma Globulin 0.88 0.50 - 1.30 g/dL [facility] M1 Band None Detected None Detected [facility] Blood 08/25/2023 11:2 8 AM EDT 08/25/2023 11:37 AM EDT Narrative Resulting Agency Comment Spec In Lab Jaspreet Kinsey MD CHEMISTRY ORDERABLES Performing Organization Address City/[facility]/ZIP Co de Phone Number [facility] [place] [address] * (ABNORMAL) Free Light Chains, Serum (08/25/2023 11:28 AM EDT) Sanger Free Light Chain 3.09(H) 0.72 - 2.75 mg/dL [facility] Lambda Free Light Chain 1.65 0.57 - 2.15 mg/dL [facility] Sanger Lambda FLC Ratio 1.8727 0.4000 - 2.5800 [facility] Blood 08/25/2023 11:2 8 AM EDT 08/25/2023 11:36 AM EDT Narrative Resulting Agency Comment Spec In Lab Jaspreet Kinsey MD CHEMISTRY ORDERABLES Performing Organization Address [facility]/ZIP Co de Phone Number [facility] [place] [address] * Iron and TIBC (08/25/2023 11:28 AM EDT) Iron 113 30 - 150 mcg/dL [facility] TIBC 338 250 - 450 mcg/dL [facility] Iron Saturation 33 20 - 50 % [facility] Blood 08/25/2023 11:2 8 AM EDT 08/25/2023 11:36 AM EDT Narrative Resulting Agency Comment Spec In Lab Jaspreet Kinsey MD CHEMISTRY ORDERABLES Performing Organization Address City/[facility]/ZIP Co de Phone Number [facility] [place] [address] * Ferritin (08/25/2023 11:28 AM EDT) Ferritin 110 11 - 328 ng/mL [facility] Comment: Please note that as of 02/10/2023, the reference intervals for Ferritin have been updated. Blood 08/25/2023 11:2 8 AM EDT 08/25/2023 11:37 AM EDT Narrative Resulting Agency Comment Spec In Lab Jaspreet Kinsey MD CHEMISTRY ORDERABLES Performing Organization Address [facility]/ZIP Co de Phone Number [facility] [place] [address] * Lyme IgG & IgM Antibody (08/25/2023 11:28 AM EDT) [facility] Lyme Screening Antibody Negative Negative [facility] Lyme Ab Comment Negative result does not exclude possibility of infection. [facility] Comment: Please note that as of 07/14/2022 that this testing is performed by the Special Chemistry Laboratory at [facility]. This change in testing location is associated with a change in testing methodology. Blood 08/25/2023 11:2 8 AM EDT 08/26/2023 7:26 AM EDT Narrative Resulting Agency Comment Spec In Lab Jaspreet Kinsey MD IMMUNOLOGY ORDERABLE S Performing Organization Address [facility] Co de Phone Number [facility] [place] [address] * Streptococcal Antibody Panel (08/25/2023 11:28 AM EDT) [facility] ASO Titer 25 0 - 530 IU/mL [facility] Comment: Test Performed by: [facility] [place] [address] Deal Architect: Nellie Haney Ph.D.; CLIA# [id number] DNase B Ab 146 0 - 300 unit/mL [facility] Comment: Test Performed by: [facility] [place] [address] Deal Architect: Nellie Haney Ph.D.; CLIA# [id number] Blood 08/25/2023 11:2 8 AM EDT 08/25/2023 1:02 PM EDT Narrative Resulting Agency Comment Spec In Lab Jaspreet Kinsey MD IMMUNOLOGY [place] [address] documented in this encounter Visit Diagnoses Diagnosis Heart failure with preserved ejection fraction, unspecified HF chronicity Chronic kidney disease, unspecified CKD stage Altered bowel function Other symptoms involving digestive system Depression, unspecified depression type documented in this encounter Care Teams Ticket Printer Relationship Specialty Start Date End Date Polo Pearce PA Sb [address] [place] [address] PCP - General Internal Medicine 06/09/21 documented as of this encounter
--- OUTSIDE RECORDS SUMMARY | 2023-09-20 14:29 | XMS_ITS | Encounter Summary ---
Author Organization [facility] Address [facility] [place] [address] Care Team Providers Care Vp Digital Marketing Name Role Phone Polo Pearce Primary Care Provider [phone] Encounter Details Date Type Department Care Team (Late st Contact Info) Description 07/12/2023 Refill Cardiology at [address] [place] [phone] Jasrpeet Kinsey MD [facility] [place] [address] Social History Tobacco Use Types Packs/Day Years Used Date Smoking Tobacco: Never Smokeless Tobacco: Never Alcohol Use Standard Drinks/Week Comments Never 0 (1 standard drink = 0.6 oz pur e alcohol) [facility] Utilities Answer Date Recorded In the past 12 months has [employer], gas, oil, or water [employer] threatened to shut off services in your [...] place to sleep or slept in a prison (including now)? No 06/15/2023 IPV Inpatient Questions [...] encounter Miscellaneous Notes * Telephone Encounter - Genoveva Glasgow - 07/12/2023 11:36 AM EDT Patient called @ 11:35 a.m. on 07/12/23. She said she would like a refill of her Torsemide 20 mg., 2-2x daily, none left. Patient uses [facility] in [place], [place]. She can be reached @ [phone]. documented in this encounter Plan of Treatment Upcoming Encounters Date Type Department Care Team (Late st Contact Info) Description 10/08/2023 8:30 AM EDT Tech [place] [phone] Jose Cook 10/08/2023 9:30 AM EDT Office Visit [place] [phone] MD [facility] [place] [place] [address] 10/21/2023 10:30 AM EDT Appointment [place] [phone] Mary Reyes, [facility] [place] [address] 10/21/2023 11:30 AM EDT Appointment [place] [phone] Mary Reyes, [facility] [place] [address] 10/21/2023 12:30 PM EDT Appointment [place] [phone] Mary Reyes, [facility] [place] [address] 10/21/2023 1:30 PM EDT Appointment [place] [phone] Mary Reyes, [facility] [place] [address] 10/21/2023 2:30 PM EDT Appointment [place] [phone] Mary Reyes, [facility] [place] [address] 10/26/2023 4:00 PM EDT Office Visit Cardiology at [address] [phone] Jaspreet Kinsey MD [facility] [place] [address] 10/28/2023 9:00 AM EDT Office [place] [address] 10/29/2023 10:00 AM EDT Clinical [place] [address] 10/29/2023 10:15 AM EDT Procedure [place] [address] 11/01/2023 5:00 PM EDT Office Visit Gastroenterology at [place] [phone] Selene Browning, PhD [facility] [place] [address] 11/22/2023 4:40 PM EDT Office Visit Cardiology at [address] [phone] Porsha Mcdaniels MD [facility] [place] [address] 12/13/2023 10:00 AM EDT Clinical Support [place] [phone] Lucero Romero, [facility] [place] [address] documented as of this encounter Visit Diagnoses Diagnosis Heart failure with preserved ejection fraction, unspecified HF chronicity documented in this encounter Care Teams Vp Digital Marketing Relationship Specialty Start Date End Date Polo Pearce PA Sb [address] [place] [address] PCP - General Internal Medicine 06/09/21 documented as of this encounter
--- OUTSIDE RECORDS SUMMARY | 2023-09-20 14:29 | XMS_ITS | Encounter Summary ---
Author Organization [facility] [place] [address] Care Team Providers Care Logging Equipment Operator Name Role Phone Polo Pearce Primary Care Provider [phone] Reason for Referral * Diagnostic Test (Routine) - New Request Specialty Diagnoses / Procedures Referred By Contjulita t Referred To Contact Cardiology Diagnoses Chest pain, unspecified type Procedures Nuclear Pharmacologic Stress Cardiology (PET CT Mobile) Porsha Mcdaniels MD [facility] [place] [address] [facility] [place] [address] Referral ID Status Reason Start Date Expiration Date Visits Requested Visits Authorized [id number] New Request Specialty Service Requested 07/29/2023 07/28/2024 1 1 Reason for Visit * Diagnostic Test (Routine) - New Request Specialty Diagnoses / Procedures Referred By Contac t Referred To Contact Cardiology Diagnoses Chest pain, unspecified type Procedures Nuclear Pharmacologic Stress Cardiology (PET CT Mobile) Porsha Mcdaniels MD [facility] [place] [address] [facility] [place] [address] Referral ID Status Reason Start Date Expiration Date Visits Requested Visits Authorized [id number] New Request Specialty Service Requested 07/29/2023 07/28/2024 1 1 Encounter Details Date Type Department Care Team (Latest Contact Info) Description 08/17/2023 11:53 AM EDT - 08/17/2023 11:59 PM EDT Hospital Encounter Non-Invasive Cardiology Lab [facility] [place] [address] [facility] [place] [address] Chest pain, unspecified type Discharge Disposition: Home Social History Tobacco Use Types Packs/Day Years Used Date Smoking Tobacco: Never Smokeless Tobacco: Never Alcohol Use Standard Drinks/Week Comments Never 0 (1 standard drink = 0.6 oz pur e alcohol) [facility] Utilities Answer Date Recorded In the past 12 months has th e [employer], gas, oil, or water [facility] threatened to shut off services in your [...] place to sleep or slept in a long term (including now)? No 06/15/2023 DH IPV Inpatient [...] on file documented as of this encounter Last Filed Vital Signs Vital Sign Reading Time Taken Comments Blood Pressure 120/68 08/17/2023 1:30 PM EDT Pulse 58 08/17/2023 1:30 PM EDT Temperature - - Respiratory Rate 18 08/17/2023 1:30 PM EDT Oxygen Saturation 96% 08/17/2023 1:30 PM EDT Inhaled Oxygen Concentration - - Weight 99.8 kg (220 lb 0.3 oz) 08/17/2023 1:30 P M EDT Height 162.6 cm (5' 4.02) 08/17/2023 1:30 PM ED T Body Mass Index 37.75 08/17/2023 1:30 PM EDT documented in this encounter Medications at Time of Discharge Medication Sig Dispensed Refills Start Date End Date ranolazine ER (Ranexa) 1,000 mg ER 12 hr tablet Take 1 tablet by mouth 2 times daily. 180 tablet 3 07/26/2023 torsemide (Demadex) 20 mg tabletIndications:Heart failure with preserved ejection fraction, unspecified HF chronicity Take 2 tablets by mouth 2 times daily. 180 tablet 07/14/2023 atorvastatin (Lipitor) 40 mg tablet Take 1 tablet by mouth every evening. 90 tablet 3 07/09/2023 metOLazone (Zaroxolyn) 2.5 mg tablet Take 1 tablet by mouth as needed (take daily for weight gain + increasing shortness of breath. take 30-60 minutes prior to a dose of torsemide). 30 tablet 06/09/2023 rimegepant (Nurtec ODT) 75 mg disintegrating tablet Take 75 mg by mouth daily as needed. nitroGLYcerin (Nitrostat) 0.[address] 1 tablet under the tongue every 5 minutes as needed for Chest pain. 90 tablet 12 04/22/2023 apixaban (Eliquis) 5 mg tablet Take 1 tablet by mouth 2 times daily. 60 tablet 11 04/04/2023 spironolactone (Aldactone) 25 mg tablet Take 1 tablet by mouth daily. 90 tablet 3 02/12/2023 melatonin 10 mg capsule Take 10 mg by mouth nightly as needed. empagliflozin (Jardiance) 10 mg TabletIndications:Chron ic heart failure with preserved ejection fraction Take 1 tablet by mouth daily. 90 tablet 1 06/11/2021 rOPINIRole (Requip) 1 mg Tablet Take 2 mg by mouth 2 times daily. 07/16/2020 loratadine (Claritin) 10 mg Tablet Take 10 mg by mouth daily as needed. fluticasone propionate (FLONASE) 50 mcg/actuation [place], Suspension 1 spray by Each Nare route as needed. gabapentin (Neurontin) 300 mg Capsule Take 600 mg by mouth nightly. topiramate (TOPAMAX) 50 mg Tablet Take 100 mg by mouth nightly. DULoxetine (CYMBALTA) 60 mg capsule Take 60 mg by mouth daily. 06/26/2010 albuterol (PROVENTIL HFA;VENTOLIN HFA) 90 mcg/Actuation inhaler Inhale 2 puffs into the lungs every 4 hours as needed. Use with spacer metoprolol succinate XL (Toprol-XL) 25 mg ER 24 hr tablet Take 0.5 tablets by mouth daily. 45 tablet 3 07/26/2023 09/10/2023 amLODIPine (Norvasc) 2.5 mg tablet Take 1 tablet by mouth daily. 90 tablet 3 04/23/2023 09/10/2023 omeprazole (PriLOSEC) 20 mg Capsule, Delayed Release(E.C.) Take 20 mg by mouth daily. Infrequent use 01/27/2022 08/25/2023 documented as of this encounter Plan of Treatment Upcoming Encounters Date Type Department Care Team (Late st Contact Info) Description 10/08/2023 8:30 AM EDT Tech [place] [address] Jose Cook 10/08/2023 9:30 AM EDT Office Visit V[place] [address] [facility] [place] [address] 10/21/2023 10:30 AM EDT Appointment Nuclear Medicine at [address] Reyes, [facility] [address] 10/21/2023 11:30 AM EDT Appointment Nuclear Medicine at [address] Reyes [facility] [place] [address] 10/21/2023 12:30 PM EDT Appointment [place] [address] Mary Reyes [facility] [place] [address] 10/21/2023 1:30 PM EDT Appointment [place] [address] Mary Reyes [facility] [place] [address] 10/21/2023 2:30 PM EDT Appointment [place] [address] Mary Reyes [facility] [place] [address] 10/26/2023 4:00 PM EDT Office Visit Cardiology at [address] [place] [address] Jaspreet Kinsey MD [facility] [place] [address] 10/28/2023 9:00 AM EDT Office Visit [place] [address] 10/29/2023 10:00 AM EDT Clinical Support [place] [address] 10/29/2023 10:15 AM EDT Procedure visit [place] [address] 11/01/2023 5:00 PM EDT Office Visit G[place] [phone] Selene Browning, PhD [facility] [place] [address] 11/22/2023 4:40 PM EDT Office Visit Cardiology at [address] [phone] [facility] [place] [address] 12/13/2023 10:00 AM EDT Clinical Support G[place] [address] [facility] [place] [address] documented as of this encounter Procedures Procedure Name Priority Date/Time Associated Diagnosis Comments NUCLEAR PHARMACOLOGIC STRESS CARDIOLOGY (PET CT MOBILE) Routine 08/17/2023 2:17 PM EDT Chest pain, unspecified type documented in this encounter Results * Nuclear Pharmacologic Stress Cardiology (PET CT Mobile) (08/17/2023 2:17 PM EDT) Anatomical Region Laterality Modality Other Porsha Mcfarlane MD CARDIAC SERVICES [facility] DERABLES documented in this encounter Visit Diagnoses Diagnosis Chest pain, unspecified type documented in this encounter Care Teams Logging Equipment Operator Relationship Specialty Start Date End Date Polo Pearce PA [address] [place] [address] PCP - General Internal Medicine 06/09/21 documented as of this encounter
--- OUTSIDE RECORDS SUMMARY | 2023-09-20 14:29 | XMS_ITS | Encounter Summary ---
[place] [address] Care Team Providers Care Transportation Dispatcher Name Role Phone Polo Pearce Primary Care Provider [phone] Reason for Referral * Consultation (Routine) - Authorized Specialty Diagnoses / Procedures Referred By Jayant harris Referred To Contact Cardiology Diagnoses NSTEMI (non-ST elevated myocardial infarction) [place] [address] Cardiac Rehab, [address] [place] [address] Referral ID Status Reason Start Date Expiration Date Visits Requested Visits Authorized [id number] Authorized Consult, Test & Treat Non PCP 09/10/2023 2024 36 36 Reason for Visit * Auth/Cert (Routine) Specialty Diagnoses / Procedures Referred By Jayant harris Referred To Contact Diagnoses NSTEMI (non-ST elevated myocardial infarction) NSTEMI Procedures EMERGENCY MICHELLEI [place] [address] [facility] Referral ID Status Reason Start Date Expiration Date Visits Re quested Visits Authorized [id number] 1 1 Encounter Details Date Type Department Care Team (Latest Contact Info) Description 08/28/2023 8:27 PM EDT - 09/10/2023 5:31 PM EDT Hospital Encounter Heart and Vascular Unit Level 3 Wing B at [place] [phone] Kia Angelo MD [facility] [place] [address] [place] [address] Eufemia Copeland MD [facility] [place] [address] Lorna Herr MD [facility] [place] [address] Samantha Broussard MD [facility] [place] [address] Lloyd Keating MD [facility] [place] [address] Paresthesia of hand, bilateral; SVT (supraventricular tachycardia); Acute on chronic heart failure with preserved ejection fraction; Non-ST elevation myocardial infarction (NSTEMI); NSTEMI (non-ST elevated myocardial infarction); Heart failure with preserved ejection fraction, unspecified HF chronicity; Hypokalemia Discharge Disposition: Home Social History Tobacco Use Types Packs/Day Years Used Date Smoking Tobacco: Never Smokeless Tobacco: Never Alcohol Use Standard Drinks/Week Comments Never 0 (1 standard drink = 0.6 oz pur e alcohol) [facility] Utilities Answer Date Recorded In the past 12 months has [employer], gas, oil, or water [employer] threatened to shut off services in your [...] place to sleep or slept in a assisted (including now)? No 06/15/2023 Housing Stability Vital Sign Answer Mitchell e Recorded In the last 12 months, was t here a time when you were not able to pay the mortgage or rent on time? No 08/30/2023 In the past 12 months, how m any times have you moved where you were living? 1 08/30/2023 At any time in the past 12 m [facility], were you homeless or living in a assisted (including now)? No 08/30/2023 [facility] IPV Inpatient [...] Mass Index 38.3 08/28/2023 8:34 PM EDT documented in this encounter Discharge Summaries * Lloyd Keating MD - 09/10/2023 5:31 PM EDT Discharge Summary Patient Name: Loida Madrigal Patient Age: 53 y.o. Language: Tanzanian Race: White Ethnicity: Not nor Admit date: 08/28/2023 Discharge date and time: 09/10/2023 4:15 PM Attending Physician: MD Lloyd Aly MD Discharge Physician: Lloyd Keating MD Follow-up Recommendations for Providers: - follow up with Dr. Kinsey and Dr. Mcdaniels within the next 1-2 months. - BMP in one week with PCP to check potassium and follow up kidney function Medication Changes - stop the amlodipine - start metoprolol tartrate 25 BID - empagliflozin - would trial a long-acting nitrate as a next step outpatient (the sabas could be stopped if BP room needed) - ropinirole is associated with AF and chest pain. consider stopping this - continue the spironolactone - continue the ranexa - continue torsemide 40 mg bid. Inpatient Provider Contact Information: For questions regarding this document or issues relating to this hospitalization on the Medical Service, please contact your inpatient physician through the [facility] Cust[facility] . Issues afterhours and on weekends will be handled by the Hospitalist staff on-call. Discharge Diagnoses (Hospital Problems) and Secondary Diagnoses (Chronic Problems): Active Hospital Problems Diagnosis NSTEMI (non-ST elevated myocardial infarction) Resolved Hospital Problems No resolved problems to display. Active Non-Hospital Problems Diagnosis Endometriosis Stenosis of left carotid artery greater than 50% Restrictive lung disease secondary to obesity Paresthesia of hand, bilateral Paroxysmal atrial fibrillation SVT (supraventricular tachycardia) Chest pain Obesity Dyslipidemia Obstructive sleep apnea syndrome Insomnia (HFpEF) heart failure with preserved ejection fraction Restless legs Asthma Operations/Major Procedures/Imaging: Results for orders placed or performed during the hospital encounter of 08/28/23 CT Abdomen & Pelvis w Contrast (Exam End: 09/05/2023 4:25 PM) Result Value WORKSTATION ID [id number] Narrative EXAMINATION: CTA/CT ABDOMEN AND PELVIS W CONTRAST [...] No hydronephrosis. Urinary Bladder: Normal. Vasculature: * Scattered calcified and noncalcified atheromatous plaque with normal caliber abdominal aorta. * The stented SMA is patent. Curvilinear calcified plaque adjacent the SMA stent, stable. * The celiac axis and renal arteries are widely patent. The FERNANDO is widely patent. * Widely patent bilateral common, external and internal iliac and common femoral arteries. * IVC is patent. Lymph Nodes: No enlarged lymph nodes. Bowel: Nondilated, no wall thickening. Normal appendix. Peritoneum and retroperitoneum: No free fluid or loculated fluid collection. No pneumoperitoneum. No mesenteric inflammation. Abdominal wall: Normal. No abdominal wall hernia. Reproductive organs: Absent uterus. Normal ovaries. No mass. Osseous structures: No acute osseous abnormality. Impression 1. No acute process in the abdomen or pelvis: Specifically, no CT evidence of mesenteric ischemia. 2. SMA stent is widely patent. I have personally reviewed the image(s) and the resident's interpretation and agree with the findings, Lalitha Sanders MD at 09/06/2023 9:47 AM Thank you for letting us participate in the care of this patient. If you are a health care provider and have any questions regarding this report, please contact the number below. For patients who have questions please contact the health wound care nurse that requested 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 08/29/23 Interpretation Summary Left ventricle is normal in size. There is low normal global systolic function, with focal hypokinesis in the anteroseptum as ascribed. Right ventricle is not well visualized. No hemodynamically significant valve disease. Compared to prior studies over the past 6 months, there has been stable global LV systolic function, with oscillating regional function of the anterior wall. History of Presentation per H&P 08/28/23: Loida Madrigal is a 53 y.o. female with a PMH of hx of mild nonobstructive mid LAD ASCVD on CCTA 09/2022, remote cardiac catheterization with normal coronaries 08/2019 with repeat LHC 04/2023 withnonobstructive CAD, PET 08/17/2023 showing septal, anterior wall scar with global reduction in MBFR (EKG portion showing diffuse ST-D), supraventricular tachycardia (AVNRT since 06/2021) s/p EPS and SVT ablation on 04/01/[address] Tovar, paroxysmal A-fib (diagnosed on 10/20/2022), HFpEF, pulmonary emboli on Eliquis, restrictive lung disease secondary to obesity, MARYLOU on CPAP, SMA artery stenosis, s/p stenting, GERD, and esophageal dysphagia (following with GI), who presented to the ED at OSH with c hest pain. The patient reports a few days of intermittent substernal chest pain radiating to the neck, along with a history of similar episodes. She also experiences shortness of breath on exertion and has noted weight gain. She denies experiencing fevers, chills, nausea, vomiting, urinary changes, or episodes of near-fainting or fainting. At OSH, vital signs were notable for bradycardia to 57, and hypotension 88/46. Lab tests tests werenotable for elevated troponin at 698 >>699>> 698 (reference less than 60), proBNP> 3000. EKG did not suggest an acute ischemic changes. Case discussed with cardiology, and recommended treatment for possible ACS, and transfer to [facility] for further management. Prior to transfer, patient was loaded with aspirin 324 mg, Plavix 300 mg, and started on heparin drip per ACS protocol. Hospital Course: #Acute Decompensated HFpEF #new/worsening left sided abdominal pain #SMA stenosis s/p stent 06/2023 #NSTEMI, type II iso ADHF #Concern for microvascular dysfunction Loida continues to experience intermittent chest pain despite robust medication regimen, titratedto the limits that her BP will allow. Creatinine normalized, schedule diuretics to resumed. Hypokalemia (presumed diuretic induced) improving with repletion. She reports hypokalemia has been an issuefor her with diuretics in the past so pending course may need regular potassium supplementation. CT abdomen/pelvis showed patent SMA stent. Dr. Lovell with the consult service had a long discussion with Loida today regarding microvascular disease, the importance of risk factor mitigation and goals of therapy. I have reiterated this. The patient is to follow up with Dr. Kinsey and Dr. Mcdaniels within the next 1-2 months. #Acute renal failure on chronic kidney disease (CKD) stage 3a without ATN, resolved. - Creatinine now back to fluctuating range - Follow up BPM within one week. - Outpatient PCP follow up. #Bradycardia #Hypotension - resolved #GERD #Esophageal dysphagia - Continue home PPI - outpatient esophagram and gastric emptying scan ordered #Restrictive lung disease secondary to obesity -Incentive spirometry -unclear if she's had repeat PFTs since 2020, would consider obtaining outpatient #Paroxysmal A-fib #Remote PE #Supraventricular tachycardia (AVNRT since 06/2021) AC as above #Hx Migraines #Restless Legs - continue home topiramate - continue home ropinarole - continue home duloxetine - continue home neurontin - iron studies normal #Vulvar tissue bleeding - aloe vesta ointment Vital Signs at Discharge: BP: 93/47, Heart Rate: (!) 49, Temp: 37.1 ??C (98.8 ??F), Resp: 18, BMI (Calculated): 38.48 Height: 162.6 cm (5' 4) (08/28/232033) Weight: 101.2 kg (223 lb 1.6 oz) (09/10/23630) Functional and Cognitive Status: alert and oriented. Stable for discharge. Important Studies and Lab Data: Labs: Last wbc, hgb, hct plt Recent Labs 09/10/23416 WBC 7.6 HGB 13.0 HCT 39.2 Last 3 wbc, hgb, hct plt Recent Labs 09/10/2341609/09/23 0510 09/08/23 022 WBC 7.6 7.4 8.6 HGB 13.0 13.0 12.8 HCT 39.2 39.2 37.4 PLATELET 267 267 274 Last 3 Lytes Recent Labs 09/10/2341609/09/23 0509/08/23221 NA 138 137 139 K 4.1 3.6 3.6 CL 103 100 103 CO2 24 25 24 BUN 27* 22* 19* CREATININE 1.39* 1.36* 1.41* Last 3 LFTs Recent Labs 08/28/23210607/07/23 03507/06/23 1541 AST 32* 15 20 ALT 28 20 22 ALKPHOS 52 54 58 BILITOT 0.6 0.4 0.4 BILIDIR 0.2 0.1 0.1 Last Ca, Mg, Phos Recent Labs 09/10/23416 CALCIUM 9.4 MAGNESIUM 0.99 Last 3 Coags No results for input(s): PT, INR, PTT in the last 168 hours. Last 3 ProBNP, Trop, CK No results for input(s): CK, TROPONINT, PROBNP in the last 168 hours. Last 3 TFT Recent Labs 06/15/2342704/17/2333202/08/23 2208 TSH 2.98 5.93* 4.00 Last 3 Lipids Recent Labs 08/28/23210606/16/23 03304/18/23 021 CHLPL 203 190 173 HDL 52 50 44 LDLCHOL 122 115 94 LDLDIRECT -- -- 105 TRIG 146 126 174 Last 3 HgbA1C Recent Labs 04/18/23 0210 HA1C 5.6 Last CRP, SEDRATE Recent Labs 08/29/23 0401 CRP <3.0 SEDRATE 11 Discharge Conditions/Prognosis: stable Discharge to: home Updated Allergies/ADRs: Allergies Allergen Reactions Codeine Other (See Comments) Per pt it causes severe jittery and uncomfortable feeling Acetaminophen Other (See Comments) Makes her jittery, feel weird and cause swelling in upper/lower extremities Clobetasol Rash Other reaction(s): Skin Rash Immunizations Given this Hospitalization: Immunization History Administered Date(s) Administered Moderna Covid-19 Monovalent 12Yr+ (Construction Engineering Manager 100mcg) 03/06/2020, 04/03/2020 Discharge Medications: Your Medications UNREVIEWED medications - Discuss With Your Provider Dose Details albuteroL 90 mcg/actuation inhaler (HFA) Inhale 2 puffs into the lungs every 4 hours as needed. Use with spacer 2 puff Refills: 0 amLODIPine 2.5 mg tablet Commonly known as: Norvasc Take 1 tablet by mouth daily. 2.5 mg Quantity: 90 tablet Refills: 3 apixaban 5 mg tablet Commonly known as: Eliquis Take 1 tablet by mouth 2 times daily. 5 mg Quantity: 60 tablet Refills: 11 atorvastatin 40 mg tablet Commonly known as: Lipitor Take 1 tablet by mouth every evening. 40 mg Quantity: 90 tablet Refills: [address] capsule Commonly known as: Cymbalta Take 60 mg by mouth daily. 60 mg Refills: 0 empagliflozin 10 mg tablet Commonly known as: Jardiance Take 1 tablet by mouth daily. 10 mg Quantity: 90 tablet Refills: 1 fluticasone propionate 50 mcg/actuation nasal spray, suspension Commonly known as: Flonase 1 spray by Each Nare route as needed. 1 spray Refills: 0 gabapentin 300 mg capsule Commonly known as: Neurontin Take 600 mg by mouth nightly. 600 mg Refills: 0 loratadine 10 mg Tablet Commonly known as: Claritin Take 10 mg by mouth daily as needed. 10 mg Refills: 0 melatonin 10 mg capsule Take 10 mg by mouth nightly as needed. 10 mg Refills: 0 metOLazone 2.5 mg tablet Commonly known as: Zaroxolyn Take 1 tablet by mouth as needed (take daily for weight gain + increasing shortness of breath. [id number] minutes prior to a dose of torsemide). 2.5 mg Quantity: 30 tablet Refills: 0 metoprolol succinate XL 25 mg ER 24 hr tablet Commonly known as: Toprol-XL Take 0.5 tablets by mouth daily. 12.5 mg Quantity: 45 tablet Refills: 3 nitroGLYcerin 0.4 mg sublingual tablet Commonly known as: Nitrostat Place 1 tablet under the tongue every 5 minutes as needed for Chest pain. 0.4 mg Quantity: 90 tablet Refills: 12 Nurtec ODT 75 mg disintegrating tablet Take 75 mg by mouth daily as needed. Generic drug: rimegepant 75 mg Refills: [address] capsule Commonly known as: PriLOSEC Take 1 capsule by mouth daily. 20 mg Quantity: 30 capsule Refills: 5 ranolazine ER 1,000 mg ER 12 hr tablet Commonly known as: Ranexa Take 1 tablet by mouth 2 times daily. 1,000 mg Quantity: 180 tablet Refills: 3 rOPINIRole 1 mg tablet Commonly known as: Requip Take 2 mg by mouth 2 times daily. 2 mg Refills: 0 spironolactone 25 mg tablet Commonly known as: Aldactone Take 1 tablet by mouth daily. 25 mg Quantity: 90 tablet Refills: 3 topiramate 50 mg tablet Commonly known as: Topamax Take 100 mg by mouth nightly. 100 mg Refills: 0 torsemide 20 mg tablet Commonly known as: Demadex Take 2 tablets by mouth 2 times daily. 40 mg Quantity: 180 tablet Refills: 0 Smoking Status at Discharge: Social History Tobacco Use Smoking Status Never Smokeless Tobacco Never Instructions Given to Patient at Discharge: Patient Instructions Your lab work, chest xray, and ultrasound of your heart indicated you were in congestive heart failure. You were started on , a diuretic to help remove fluid from your body. You were started on a beta tiffanie called metoprolol which will help reduce workload on your heart. You will need to limit sodium in your diet. We suggest you avoid adding salt to any of your food, and actively monitor the salt content on the labels of the food you buy. Your total salt intake in a 24 hour period should not exceed 2,000 grams. Once at home, you will need to weigh yourself without clothing at the same time each day. Record your weight. Call your doctor if you have a sudden weight gain, such as more than 2 to 3 pounds in a day or 5 pounds in a week. (Your doctor may suggest a different range of weight gain.) A sudden weight gain may mean that your heart failure is getting worse. Your weight on day of discharge is Wt Readings from Last 3 Encounters: 09/10/23 101.2 kg (223 lb 1.6 oz) 08/25/23 100.7 kg (222 lb) 08/17/23 99.8 kg (220 lb 0.3 oz) Call your doctor if: Chest pain, dyspnea, pain or swelling in legs occurs, or for weight gain of 2 pounds overnight or 5pounds in 5 days. If you have non-emergent questions, prior to your follow-up visit call: Wednesday-Wednesday between the hours of 8AM-5PM please call the Cardiology Clinic [phone] to speak with a nurse. All other hours please call the Hospital [facility] [phone] and ask to speak to the cardiovascular hospitalist on-call. Follow up Appointments: Doctor Where Phone # Date Time PCP [address] [place] [address] Please call to set up a follow up appointment. Cardiology Jaspreet Kinsey MD Cardiology at [place] Arrive at: [facility] [address] [phone] 10/26/2023 4:00 PM General Instructions None Future Appointments and Orders Future Appointments and Orders Future Appointments Provider Department Dept Phone 10/21/2023 10:30 AM [facility] ROOM 1 Nuclear Medicine at [facility] Arrive at: [facility] RAD[facility]OLOGY [phone] Please do not eat or drink anything for at least 6 hours prior to your appointment. 10/21/2023 11:30 AM [facility] ROOM 1 Nuclear Medicine at [facility] Arrive at: [facility] RAD[facility] [phone] Please do not eat or drink anything for at least 6 hours prior to your appointment. 10/21/2023 12:30 PM [facility] ROOM 1 Nuclear Medicine at [facility] Arrive at: [facility] RAD[facility] [phone] Please do not eat or drink anything for at least 6 hours prior to your appointment. 10/21/2023 1:30 PM [facility] ROOM 1 Nuclear Medicine at [facility] Arrive at: [facility] RAD[facility] [phone] Please do not eat or drink anything for at least 6 hours prior to your appointment. 10/21/2023 2:30 PM [facility] ROOM 1 Nuclear Medicine at [facility] Arrive at: [facility] RAD[facility] [phone] Please do not eat or drink anything for at least 6 hours prior to your appointment. 10/26/2023 4:00 PM Jaspreet Kinsey MD Cardiology at [place] Arrive at: [facility] [address] [phone] 10/28/2023 9:00 AM [facility] 2 Gastroenterology at [facility] Arrive at: [facility]T [phone] 10/29/2023 10:00 AM [facility] 2 Gastroenterology at [facility] Arrive at: [facility]T [phone] 10/29/2023 10:15 AM [facility] 2 Gastroenterology at [facility] Arrive at: [facility]T [phone] 11/22/2023 4:40 PM Porsha Mcdaniels MD Cardiology at [facility] Arrive at: [facility] [phone] 12/13/2023 10:[address] Gastroenterology at [facility] Arrive at: [facility] Discharge References/Attachments None Greater than 30 minutes was spent on this discharge including documentation, [id number] time withthe patient, patient education, order builder loader, coordination with pharmacy and other patient care. Lloyd Keating MD 09/10/2023 documented in this encounter Discharge Instructions * Patient Instructions* Lloyd Keating MD - 08/31/2023 6:45 PM EDT Your lab work, chest xray, and ultrasound of your heart indicated you were in congestive heart failure. You were started on , a diuretic to help remove fluid from your body. You were started on a beta tiffanie called metoprolol which will help reduce workload on your heart. You will need to limit sodium in your diet. We suggest you avoid adding salt to any of your food, and actively monitor the salt content on the labels of the food you buy. Your total salt intake in a 24 hour period should not exceed 2,000 grams. Once at home, you will need to weigh yourself without clothing at the same time each day. Record your weight. Call your doctor if you have a sudden weight gain, such as more than 2 to 3 pounds in a day or 5 pounds in a week. (Your doctor may suggest a different range of weight gain.) A sudden weight gain may mean that your heart failure is getting worse. Your weight on day of discharge is Wt Readings from Last 3 Encounters: 09/10/23 101.2 kg (223 lb 1.6 oz) 08/25/23 100.7 kg (222 lb) 08/17/23 99.8 kg (220 lb 0.3 oz) Call your doctor if: Chest pain, dyspnea, pain or swelling in legs occurs, or for weight gain of 2 pounds overnight or 5pounds in 5 days. If you have non-emergent questions, prior to your follow-up visit call: Wednesday-Wednesday between the hours of 8AM-5PM please call the Cardiology Clinic [phone] to speak with a nurse. All other hours please call the Hospital [facility]ust[facility] [phone] and ask to speak to the cardiovascular hospitalist on-call. Follow up Appointments: Doctor Where Phone # Date Time PCP J[address]Y [address] [place] [address] Please call to set up a follow up appointment. Cardiology Jaspreet Kinsey MD Cardiology at [place] Arrive at: [facility] [address] [phone] 10/26/2023 4:00 PM documented in this encounter Medications at Time of Discharge Medication Sig Dispensed Refills Start Date End Date metoproloL tartrate (Lopressor) 25 mg tablet Take 1 tablet by mouth 2 times daily. 180 tablet 3 09/10/2023 potassium chloride ER (Klor-Con M) 20 mEq ER micro-encapsulated crystal tablet Take 2 tablets by mouth daily for 30 days. 60 tablet 09/10/2023 10/10/2023 omeprazole (PriLOSEC) [address] capsuleIndications:Elmer roesophageal reflux disease, unspecified whether esophagitis present Take 1 capsule by mouth daily. 30 capsule 5 08/25/2023 08/24/2024 ranolazine ER (Ranexa) 1,000 mg ER 12 [...] as needed. fluticasone propionate (FLONASE) 50 mcg/actuation [place], Suspension 1 spray by Each Nare route [...] 4 hours as needed. Use with spacer documented as of this encounter Progress Notes * Edith Chandler RCP - 09/10/2023 10:43 AM EDT Respiratory Therapy NIV Note NIV Settings: NIV Mode: S/T IPAP (cmH20): 22 EPAP (cmH20): 16 FiO2 (%): 21 % O2 Bleed In (LPM): (none) NIV Measurements: Resp: 18 SpO2: 98 % Assessment: Pt is on RA. Unit is on standby in room. Will continue to monitor and support as tolerated. Edith Chandler RCP * Lloyd Keating MD - 09/09/2023 10:09 AM EDT Images from the original note were not included. [facility] Cardiovascular Medicine CV HOSPITALIST 1 - [facility] DAILY PROGRESS NOTE Page [phone] to reach a provider 28/09 Admit Date: 08/28/2023 Encounter Date September 09, 2023 Anticipated Discharge Date: 09/10/2023 Hospital Day: 12 Active Hospital Problems Diagnosis NSTEMI (non-ST elevated myocardial infarction) Resolved Hospital Problems No resolved problems to display. 24 Hour Events/Subjective: - NAEON - Reports ongoing chest pain. Reports abdominal pain with ambulation. - Good urine output with Torsemide 40 mg BID. Still appears fluid overload and is above target weight. Creatinine improved, which is reassuring. Medications: Scheduled Meds: torsemide 40 mg Oral BID miconazole nitrate Topical (Top) BID ranolazine ER 500 mg Oral BID apixaban 5 mg Oral BID gabapentin 600 mg Oral Nightly atorvastatin 40 mg Oral QPM DULoxetine DR 60 mg Oral Daily pantoprazole EC 40 mg Oral Daily rOPINIRole 2 mg Oral BID spironolactone 25 mg Oral Daily topiramate 100 mg Oral Nightly sodium chloride 0.9 % (flush) 5 mL Intravenous BID aspirin 81 mg Oral Daily Continuous Infusions: PRN Meds:.potassium chloride ER, LORazepam, zolpidem, polyethylene glycoL (MIRALAX) oral powder, ipratropium-albuteroL, nitroGLYcerin, sodium chloride 0.9 % (flush), lidocaine, melatonin Objective: Last value Range last 24 hrs Temp: 36.5 ??C (97.7 ??F) Temp: [35.9 ??C (96.6 ??F)-36.9 ??C (98.5 ??F)] Heart Rate: 53 Heart Rate from SpO2: 61 bpm Heart Rate: [50-65] BP: 118/60 BP: (93-120)/(55-79) Resp: 18 Resp: [16-20] SpO2: 100 % SpO2: [95 %-100 %] Height: 162.6 cm (5' 4) Weight: 101.4 kg (223 lb 9.6 oz) BMI (Calculated): 38.48 BMI Classification: Obese Admit weight: 101.7 kg Patient Vitals for the past 168 hrs: Weight 09/09/23 0406 101.4 kg (223 lb 9.6 oz) 09/08/23 0500 101.2 kg (223 lb) 09/07/23 0556 101.2 kg (223 lb) 09/06/23 0600 99.3 kg (218 lb 14.4 oz) 09/05/23 0533 99.7 kg (219 lb 11.2 oz) 09/04/23 0453 99 kg (218 lb 3.2 oz) 09/03/23 0536 98.2 kg (216 lb 9.6 oz) Intake/Output Summary (Last 24 hours) at 09/09/2023 1448 Last data filed at 09/09/2023 1200 Gross per 24 hour Intake 1061 ml Output 2200 ml Net -1139 ml Physical Exam: Gen: Sitting up in a chair, no acute distress, HEENT: NCAT, EOMI, PERRLA CV: RRR, no murmurs appreciated Resp: CTAB without wheezes, rales, rhonchi Abdomen: soft, tenderness elicited with palpation of the left mid and lower abdomen Extremities: bilateral pitting edema +1, warm and well perfused Skin: No rashes or lesions present on exposed skin Joints: No swelling, synovitis, or tenderness in any joints examined including hands, wrists, elbows, ankles, and feet. Labs: Recent Labs 09/09/23 0510 09/08/23 0222 09/07/23 0256 09/06/23 0244 09/05/23 0158 WBC 7.4 8.6 7.2 7.5 7.9 HGB 13.0 12.8 13.1 13.6 13.7 HCT 39.2 37.4 39.7 40.2 40.5 PLATELET 267 274 277 274 282 MCV 95.8* 94.0 95.4* 94.4 92.5 Recent Labs 09/09/23 0510 09/08/23 0222 09/07/23 0256 09/06/23 0244 09/05/23 0158 NA 137 139 137 137 136 CL 100 103 102 102 99 CO2 25 24 25 25 25 K 3.6 3.6 3.9 3.6 3.6 MAGNESIUM 0.97 0.91 0.96 0.95 1.02 CALCIUM 9.5 9.1 9.4 9.5 9.5 BUN 22* 19* 16 16 24* CREATININE 1.36* 1.41* 1.19 1.05 1.10 Coags No results for input(s): INR, PT, PTT, DDIMER in the last 168 hours. Cardiac Markers Recent Labs 09/02/23201509/02/23 1705 TROPONINTHS 24* 24* PROBNP -- 985* Endocrine Recent Labs 06/15/23 0428 04/18/23 0210 04/17/23 0333 02/08/23 2208 TSH 2.98 -- 5.93* 4.00 HA1C -- 5.6 -- -- No results for input(s): CHLPL, TRIG, HDL, LDLCHOL, CHOLHDL in the last 168 hours. Recent Labs 09/09/23 0510 09/08/23 0222 09/07/23 0256 GLUCOSE 97 98 97 Telemetry: I have personally reviewed and interpreted the telemetry from the last 24 hours. Resultsshow SR/SB. Imaging: No results found for this visit on 08/28/23 (from the past 24 hour(s)). Assessment: Loida Madrigal is a 53 y.o. female with a PMH of mild nonobstructive mid LAD ASCVD on CCTA 09/2022, remote cardiac catheterization with normal coronaries 08/2019 with repeat LHC 04/2023 with nonobstructive CAD, PET 08/17/2023 showing septal, anterior wall scar with global reduction in MBFR (EKG portion showing diffuse ST-D), supraventricular tachycardia (AVNRT since 06/2021) s/p EPS and SVT ablation on 04/01/[address] 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 Patient found to have acute exacerbation of HFpEF, likely d/t microvascular dysfunction. Cardiology consulted. Does not report chest pain or abdominal pain today. His creatinine has improved slightly with torsemide 40 mg BID. He is making more urine now. Her weight is still above target weight and appears euvolemic. She reports hypokalemia has been an issue for her with diuretics in the past so pending course may need regular potassium supplementation. CT abdomen/pelvis tshowed a patent SMA stent. Plan: #Acute Decompensated HFpEF -continue torsemide 40 mg bid. Continue to titrated diuretic dose while monitoring kidney fuction to obtain optimum dose. - continue home spironolactone - using NIV with naps and sleeping - work up for infiltrative conditions has been unrevealing #new/worsening left sided abdominal pain #SMA stenosis s/p stent 06/2023 - CT A/P with patent SMA stent. #NSTEMI, type I vs type II iso ADHF #Concern for microvascular dysfunction -Telemetry monitoring -Cardiology consulted -Continue ASA 81 mg daily s/p 324 mg at OSH -Plavix stopped -apixiban 5 mg po bid -amlodipine 2.5mg restarted -continue Atorvastatin 40mg PO daily -Continue ranolazine (started last admission but unclear how much it's been helping) -continue metoprolol today. - Cardiology consult placed. Appreciate recommendations. #Bradycardia #Hypotension - resolved #GERD #Esophageal dysphagia - Continue home PPI - outpatient esophagram and gastric emptying scan ordered #Restrictive lung disease secondary to obesity -Incentive spirometry -unclear if she's had repeat PFTs since 2020, would consider obtaining outpatient #Paroxysmal A-fib #Remote PE #Supraventricular tachycardia (AVNRT since 06/2021) AC as above #Hx Migraines #Restless Legs - continue home topiramate - continue home ropinarole - continue home duloxetine - continue home neurontin - iron studies normal #Vulvar tissue bleeding - aloe vesta ointment Diet: Daily Healthy Menu Choices/Cardiac diet ([facility]-Diet) DVT Prophylaxis: DOAC Code status: Attempt Cardiopulmonary Resuscitation - Inpatient Disposition: Discharge Location: [facility] Basic Mobility Raw Score: 19 PT: OT: PCP JOCY Franco [phone] Lloyd Keating MD 09/09/2023 * Florencia Ortez RN - 09/09/2023 8:14 AM EDT During VAS Purposeful Rounding, an assessment of your patient's venous access was performed fby theVascular Access Service. The following tasks were performed if needed and communicated to the bedside RN Choose all that apply: [] PIV(s) checked for patency if daily need for flush needs to be performed [] CVAD was checked for patency if daily flush needs to be performed [] IV tubing clamped or capped if needed [x] Visual inspection of your patient's central line dressing integrity [] Review of indications for vascular access [] A photo was taken of your patient's central line [] Visual inspection of your patient's IV dressing integrity [] Other While rounding an intervention was needed and communicated to the bedside RN Choose all that apply: [] Nonocclusive IV dressing addressed [] Nonocclusive CVAD dressing (please identify type of line) [] Infusion site leaking [] IV not patent and removed [] IV not indicated [] IV placed [] IV restarted [] Implanted Port, PICC or ML dressing changed if needed (either PRN or weekly) [] Other NONE * Edith Chandler RCP - 09/09/2023 7:18 AM EDT Respiratory Therapy NIV Note NIV Settings: NIV Mode: S/T IPAP (cmH20): 22 EPAP (cmH20): 16 Pressure Support (cm H2O): 6 FiO2 (%): 21 % O2 Bleed In (LPM): (none) NIV Measurements: Resp: 18 SpO2: 98 % Assessment: Received Pt on above settings. Pt tolerating well with SpO2 >95%. Plan to liberate Pt to RA when awake. Pt remains on RA- tolerating well. Will continue to monitor and support as tolerated. Edith Chandler RCP * Lloyd Keating MD - 09/08/2023 9:15 AM EDT Images from the original note were not included. [facility] - [facility] DAILY PROGRESS NOTE Page [phone] to reach a provider 28/09 Admit Date: 08/28/2023 Encounter Date September 08, 2023 Anticipated Discharge Date: 09/10/2023 Hospital Day: 11 Active Hospital Problems Diagnosis NSTEMI (non-ST elevated myocardial infarction) Resolved Hospital Problems No resolved problems to display. 24 Hour Events/Subjective: - NAEON - Reports ongoing chest pain. Reports abdominal pain with ambulation. - Has gained weight. was on torsemide 20 mg daily. Takes 40 mg torsemide bid at home. Increased to torsemide bid yesterday. Patient has developed some elevated creatinine. Medications: Scheduled Meds: torsemide 40 mg Oral BID miconazole nitrate Topical (Top) BID ranolazine ER 500 mg Oral BID apixaban 5 mg Oral BID gabapentin 600 mg Oral Nightly atorvastatin 40 mg Oral QPM DULoxetine DR 60 mg Oral Daily pantoprazole EC 40 mg Oral Daily rOPINIRole 2 mg Oral BID spironolactone 25 mg Oral Daily topiramate 100 mg Oral Nightly sodium chloride 0.9 % (flush) 5 mL Intravenous BID aspirin 81 mg Oral Daily Continuous Infusions: PRN Meds:.potassium chloride ER, LORazepam, zolpidem, polyethylene glycoL (MIRALAX) oral powder, ipratropium-albuteroL, nitroGLYcerin, sodium chloride 0.9 % (flush), lidocaine, melatonin Objective: Last value Range last 24 hrs Temp: 36.9 ??C (98.5 ??F) Temp: [36.3 ??C (97.4 ??F)-36.9 ??C (98.5 ??F)] Heart Rate: 62 Heart Rate from SpO2: 61 bpm Heart Rate: [46-70] BP: 120/68 BP: (90-120)/(55-68) Resp: 18 Resp: [16-18] SpO2: 95 % SpO2: [95 %-98 %] Height: 162.6 cm (5' 4) Weight: 101.2 kg (223 lb) BMI (Calculated): 38.48 BMI Classification: Obese Admit weight: 101.7 kg Patient Vitals for the past 168 hrs: Weight 09/08/23 0500 101.2 kg (223 lb) 09/07/23 0556 101.2 kg (223 lb) 09/06/23 0600 99.3 kg (218 lb 14.4 oz) 09/05/23 0533 99.7 kg (219 lb 11.2 oz) 09/04/23 0453 99 kg (218 lb 3.2 oz) 09/03/23 0536 98.2 kg (216 lb 9.6 oz) Intake/Output Summary (Last 24 hours) at 09/08/20232057 Last data filed at 09/08/2023 1700 Gross per 24 hour Intake 866 ml Output 2300 ml Net -1434 ml Physical Exam: Gen: Sitting up in a chair, no acute distress, HEENT: NCAT, EOMI, PERRLA CV: RRR, no murmurs appreciated Resp: CTAB without wheezes, rales, rhonchi Abdomen: soft, tenderness elicited with palpation of the left mid and lower abdomen Extremities: bilateral pitting edema +1, warm and well perfused Skin: No rashes or lesions present on exposed skin Joints: No swelling, synovitis, or tenderness in any joints examined including hands, wrists, elbows, ankles, and feet. Labs: Recent Labs 09/08/23 0222 09/07/23 0256 09/06/23 0244 09/05/23 0158 09/04/23 0303 WBC 8.6 7.2 7.5 7.9 8.2 HGB 12.8 13.1 13.6 13.7 14.8 HCT 37.4 39.7 40.2 40.5 41.8 PLATELET 274 277 274 282 306 MCV 94.0 95.4* 94.4 92.5 91.9 Recent Labs 09/08/23 0222 09/07/23 0256 09/06/23 0244 09/05/23 0158 09/04/23 1411 09/04/23 0425 09/04/23 0303 NA 139 137 137 136 136 -- 134* CL 103 102 102 99 96* -- 92* CO2 24 25 25 25 25 -- 26 K 3.6 3.9 3.6 3.6 3.7 < > Not Perf MAGNESIUM 0.91 0.96 0.95 1.02 -- -- 1.07 CALCIUM 9.1 9.4 9.5 9.5 9.6 -- 10.0 BUN 19* 16 16 24* 24* -- 28* CREATININE 1.41* 1.19 1.05 1.10 1.34* -- 1.32* < > = values in this interval not displayed. Coags No results for input(s): INR, PT, PTT, DDIMER in the last 168 hours. Cardiac Markers Recent Labs 09/02/23201509/02/23 1705 09/02/23 0905 09/02/23 0318 TROPONINTHS 24* 24* 22* 23* PROBNP -- 985* -- -- Endocrine Recent Labs 06/15/23 0428 04/18/23 0210 04/17/23 0333 02/08/23 2208 TSH 2.98 -- 5.93* 4.00 HA1C -- 5.6 -- -- No results for input(s): CHLPL, TRIG, HDL, LDLCHOL, CHOLHDL in the last 168 hours. Recent Labs 09/08/23 0222 09/07/23 0256 09/06/23 0244 GLUCOSE 98 97 100 Telemetry: I have personally reviewed and interpreted the telemetry from the last 24 hours. Resultsshow SR/SB. Imaging: No results found for this visit on 08/28/23 (from the past 24 hour(s)). Assessment: Loida Madrigal is a 53 y.o. female with a PMH of mild nonobstructive mid LAD ASCVD on CCTA 09/2022, remote cardiac catheterization with normal coronaries 08/2019 with repeat LHC 04/2023 with nonobstructive CAD, PET 08/17/2023 showing septal, anterior wall scar with global reduction in MBFR (EKG portion showing diffuse ST-D), supraventricular tachycardia (AVNRT since 06/2021) s/p EPS and SVT ablation on 04/01/[address] 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 Patient found to have acute exacerbation of HFpEF, likely d/t microvascular dysfunction. Cardiology consulted. Loida continues to experience chest pain despite robust medication regimen, titrated to the limits that her BP will allow. Creatinine normalized, schedule diuretics to resumed at Torsemide 20 mg. She has noted weight gain. She takes 40 mg bid of torsemide at home. Will uptitrate to 40 mg bid and monitor kidney function. She reports hypokalemia has been an issue for her with diuretics in the past so pending course may need regular potassium supplementation. CT abdomen/pelvis tshowed a patent SMA stent. Loida continues to express concerns that her discharge will not be successful due to ongoing symptoms. She will need robust outpatient support and would benefit from contact with the heart failure nursing team to help reduce likelihood of readmission. Plan: #Acute Decompensated HFpEF -on torsemide 20 mg daily (previous outpatient dose 40 mg BID). Increase to 40 mg bid yesterday with some elevated creatinine. Continue to titrated diuretic dose while monitoring kidney fuction to obtain optimum dose. - continue home spironolactone - using NIV with naps and sleeping - work up for infiltrative conditions has been unrevealing #new/worsening left sided abdominal pain #SMA stenosis s/p stent 06/2023 - CT A/P with patent SMA stent. #NSTEMI, type I vs type II iso ADHF #Concern for microvascular dysfunction -Telemetry monitoring -Cardiology consulted -Continue ASA 81 mg daily s/p 324 mg at OSH -Plavix stopped -apixiban 5 mg po bid -amlodipine 2.5mg restarted -continue Atorvastatin 40mg PO daily -Continue ranolazine (started last admission but unclear how much it's been helping) -continue metoprolol today. - Cardiology consult placed. Appreciate recommendations. #Bradycardia #Hypotension - resolved #GERD #Esophageal dysphagia - Continue home PPI - outpatient esophagram and gastric emptying scan ordered #Restrictive lung disease secondary to obesity -Incentive spirometry -unclear if she's had repeat PFTs since 2020, would consider obtaining outpatient #Paroxysmal A-fib #Remote PE #Supraventricular tachycardia (AVNRT since 06/2021) AC as above #Hx Migraines #Restless Legs - continue home topiramate - continue home ropinarole - continue home duloxetine - continue home neurontin - iron studies normal #Vulvar tissue bleeding - aloe vesta ointment Diet: Daily Healthy Menu Choices/Cardiac diet ([facility]-Diet) DVT Prophylaxis: DOAC Code status: Attempt Cardiopulmonary Resuscitation - Inpatient Disposition: Discharge Location: [facility] Basic Mobility Raw Score: 24 PT: OT: PCP JOCY Franco [phone] Lloyd Keating MD 09/08/2023 * Edith Chandler RCP - 09/08/2023 7:29 AM EDT Respiratory Therapy NIV Note NIV Settings: NIV Mode: S/T IPAP (cmH20): 22 EPAP (cmH20): 16 FiO2 (%): 21 % O2 Bleed In (LPM): (none) NIV Measurements: Resp: 18 SpO2: 97 % Assessment: Received Pt on RA. Pt was liberated from NOC Air Curve by nurse when awake. Unit is on standby in room. Pt remains on RA. Will continue to monitor and support as tolerated. Edith Chandler RCP * Dona Hanks RCP - 09/07/2023 10:42 PM EDT Respiratory Therapy NIV Note NIV Settings: NIV Mode: S/T IPAP (cmH20): 22 EPAP (cmH20): 16 Pressure Support (cm H2O): 6 FiO2 (%): 21 % O2 Bleed In (LPM): (none) NIV Measurements: Resp: 18 SpO2: 96 % Skin Assessment: NIV Skin Assessment WDL: WDL Mepilex Applied: No Nares Assessment WDL: WDL Assessment: Pt independent with taking on and off nocturnal NIV. Found pt on settings above. Pt compliant with NIV. Will continue to support Dona Hanks RCP * Marion Trevizo RCP - 09/07/2023 2:55 PM EDT 09/07/23 0725 Oxygen Therapy Patient Type Adult O2 Device RA (has aircurve for niv) SpO2 96 % Pt on room air seth well Pt has aircurve for NIV Will continue to monitor pt * Lorena Boyer - 09/07/2023 1:30 PM EDT [facility] offers Massage Therapy and Reiki. Shoulder massage by Corky Srivastava, Licensed Massage Therapist. Loida was very grateful. She shared that she has had a lot of shoulder pain int he past and this massage helped. [facility] will try to see 1x/week. Loida's Pain and Anxiety rating before and after the session: Pain Scale 0-10 Before: 5-10 After:1-5 Anxiety 0-10 Before: 1-2 After: 0 * Lloyd Keating MD - 09/07/2023 1:00 PM EDT Images from the original note were not included. [facility] - [facility] DAILY PROGRESS NOTE Page [phone] to reach a provider 28/09 Admit Date: 08/28/2023 Encounter Date September 07, 2023 Anticipated Discharge Date: 09/08/2023 Hospital Day: 10 Active Hospital Problems Diagnosis NSTEMI (non-ST elevated myocardial infarction) Resolved Hospital Problems No resolved problems to display. 24 Hour Events/Subjective: - NAEON - Reports ongoing chest pain. Reports abdominal pain with ambulation. - Has gained weight today. Now on torsemide 20 mg daily. Takes 40 mg torsemide bid at home. Medications: Scheduled Meds: torsemide 20 mg Oral Daily miconazole nitrate Topical (Top) BID ranolazine ER 500 mg Oral BID amLODIPine 2.5 mg Oral Daily apixaban 5 mg Oral BID gabapentin 600 mg Oral Nightly atorvastatin 40 mg Oral QPM DULoxetine DR 60 mg Oral Daily pantoprazole EC 40 mg Oral Daily rOPINIRole 2 mg Oral BID spironolactone 25 mg Oral Daily topiramate 100 mg Oral Nightly sodium chloride 0.9 % (flush) 5 mL Intravenous BID aspirin 81 mg Oral Daily Continuous Infusions: PRN Meds:.potassium chloride ER, LORazepam, zolpidem, polyethylene glycoL (MIRALAX) oral powder, ipratropium-albuteroL, nitroGLYcerin, sodium chloride 0.9 % (flush), lidocaine, melatonin Objective: Last value Range last 24 hrs Temp: 36.8 ??C (98.3 ??F) Temp: [36.4 ??C (97.5 ??F)-36.9 ??C (98.4 ??F)] Heart Rate: 56 Heart Rate from SpO2: 55 bpm Heart Rate: [51-67] BP: 120/69 BP: (91-136)/(48-77) Resp: 18 Resp: [16-18] SpO2: 96 % SpO2: [96 %-99 %] Height: 162.6 cm (5' 4) Weight: 101.2 kg (223 lb) BMI (Calculated): 38.48 BMI Classification: Obese Admit weight: 101.7 kg Patient Vitals for the past 168 hrs: Weight 09/07/23 0556 101.2 kg (223 lb) 07/01/24 0600 99.3 kg (218 lb 14.4 oz) 09/05/23 0533 99.7 kg (219 lb 11.2 oz) 09/04/23 0453 99 kg (218 lb 3.2 oz) 09/03/23 0536 98.2 kg (216 lb 9.6 oz) Intake/Output Summary (Last 24 hours) at 09/07/20232016 Last data filed at 09/07/20231951 Gross per 24 hour Intake 422 ml Output 2400 ml Net -1978 ml Physical Exam: Gen: Sitting up in a chair, no acute distress, HEENT: NCAT, EOMI, PERRLA CV: RRR, no murmurs appreciated Resp: CTAB without wheezes, rales, rhonchi Abdomen: soft, tenderness elicited with palpation of the left mid and lower abdomen Extremities: bilateral pitting edema +1, warm and well perfused Skin: No rashes or lesions present on exposed skin Joints: No swelling, synovitis, or tenderness in any joints examined including hands, wrists, elbows, ankles, and feet. Labs: Recent Labs 09/07/23 0256 09/06/23 0244 09/05/23 0158 09/04/23 0303 09/03/23 0239 WBC 7.2 7.5 7.9 8.2 8.6 HGB 13.1 13.6 13.7 14.8 15.2 HCT 39.7 40.2 40.5 41.8 45.4 PLATELET 277 274 282 306 295 MCV 95.4* 94.4 92.5 91.9 94.0 Recent Labs 09/07/23 0256 09/06/23 0244 09/05/23 0158 09/04/23 1411 09/04/23 0913 09/04/23 0425 09/04/23 0303 09/03/23 0239 NA 137 137 136 136 -- -- 134* 138 CL 102 102 99 96* -- -- 92* 93* CO2 25 25 25 25 -- -- 26 30 K 3.9 3.6 3.6 3.7 3.2* < > Not Perf 3.4* MAGNESIUM 0.96 0.95 1.02 -- -- -- 1.07 0.98 CALCIUM 9.4 9.5 9.5 9.6 -- -- 10.0 10.4 BUN 16 16 24* 24* -- -- 28* 23* CREATININE 1.19 1.05 1.10 1.34* -- -- 1.32* 1.53* < > = values in this interval not displayed. Coags No results for input(s): INR, PT, PTT, DDIMER in the last 168 hours. Cardiac Markers Recent Labs 09/02/23201509/02/23 1705 09/02/23 0905 09/02/23 0318 TROPONINTHS 24* 24* 22* 23* PROBNP -- 985* -- -- Endocrine Recent Labs 06/15/23 0428 04/18/23 0210 04/17/23 0333 02/08/23 2208 TSH 2.98 -- 5.93* 4.00 HA1C -- 5.6 -- -- No results for input(s): CHLPL, TRIG, HDL, LDLCHOL, CHOLHDL in the last 168 hours. Recent Labs 09/07/23 0256 09/06/23 0244 09/05/23 0158 GLUCOSE 97 100 103 Telemetry: I have personally reviewed and interpreted the telemetry from the last 24 hours. Resultsshow SR/SB. Imaging: No results found for this visit on 08/28/23 (from the past 24 hour(s)). Assessment: Loida Madrigal is a 53 y.o. female with a PMH of mild nonobstructive mid LAD ASCVD on CCTA 09/2022, remote cardiac catheterization with normal coronaries 08/2019 with repeat LHC 04/2023 with nonobstructive CAD, PET 08/17/2023 showing septal, anterior wall scar with global reduction in MBFR (EKG portion showing diffuse ST-D), supraventricular tachycardia (AVNRT since 06/2021) s/p EPS and SVT ablation on 04/01/[address] 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 Patient found to have acute exacerbation of HFpEF, likely d/t microvascular dysfunction. Cardiology consulted. Loida continues to experience chest pain despite robust medication regimen, titrated to the limits that her BP will allow. Creatinine normalized, schedule diuretics to resumed at Torsemide 20 mg. She has noted weight gain. She takes 40 mg bid of torsemide at home. Will uptitrate to 40 mg bid and monitor kidney function. She reports hypokalemia has been an issue for her with diuretics in the past so pending course may need regular potassium supplementation. CT abdomen/pelvis tshowed a patent SMA stent. Loida continues to express concerns that her discharge will not be successful due to ongoing symptoms. She will need robust outpatient support and would benefit from contact with the heart failure nursing team to help reduce likelihood of readmission. Plan: #Acute Decompensated HFpEF -on torsemide 20 mg daily (previous outpatient dose 40 mg BID). Increase to 40 mg bid today. - continue home spironolactone - using NIV with naps and sleeping - work up for infiltrative conditions has been unrevealing #new/worsening left sided abdominal pain #SMA stenosis s/p stent 06/2023 - CT A/P with patent SMA stent. #NSTEMI, type I vs type II iso ADHF #Concern for microvascular dysfunction -Telemetry monitoring -Cardiology consulted -Continue ASA 81 mg daily s/p 324 mg at OSH -Plavix stopped -apixiban 5 mg po bid -amlodipine 2.5mg restarted -continue Atorvastatin 40mg PO daily -Continue ranolazine (started last admission but unclear how much it's been helping) -restart metoprolol today. - Cardiology consult placed. Appreciate recommendations. #Bradycardia #Hypotension - resolved #GERD #Esophageal dysphagia - Continue home PPI - outpatient esophagram and gastric emptying scan ordered #Restrictive lung disease secondary to obesity -Incentive spirometry -unclear if she's had repeat PFTs since 2020, would consider obtaining outpatient #Paroxysmal A-fib #Remote PE #Supraventricular tachycardia (AVNRT since 06/2021) AC as above #Hx Migraines #Restless Legs - continue home topiramate - continue home ropinarole - continue home duloxetine - continue home neurontin - iron studies normal #Vulvar tissue bleeding - aloe vesta ointment Diet: Daily Healthy Menu Choices/Cardiac diet ([facility]-Diet) DVT Prophylaxis: DOAC Code status: Attempt Cardiopulmonary Resuscitation - Inpatient Disposition: Discharge Location: [facility] Basic Mobility Raw Score: 24 PT: OT: PCP JOCY Franco [phone] Lloyd Keating MD 09/07/2023 * Dona Hanks RCP - 09/06/2023 11:38 PM EDT Respiratory Therapy NIV Note NIV Settings: NIV Mode: S/T IPAP (cmH20): 22 EPAP (cmH20): 16 Pressure Support (cm H2O): 6 FiO2 (%): 21 % O2 Bleed In (LPM): (none) NIV Measurements: Resp: 16 SpO2: 98 % Skin Assessment: NIV Skin Assessment WDL: WDL Mepilex Applied: No Nares Assessment WDL: WDL Assessment: Pt independent with putting on and nocturnal NIV. Found pt on settings above. Pt compliant with nocturnal NIV. Will continue to support. Dona Hanks RCP * Marion Trevizo RCP - 09/06/2023 1:17 PM EDT 09/05/23 2350 Oxygen Therapy O2 Device RA SpO2 98 % Resp 17 Pt on room air seth well Pt has aircurve for NIV Will continue to monitor pt * Lloyd Keating MD - 09/06/2023 7:00 AM EDT Images from the original note were not included. [facility] Cardiovascular [facility] - [facility] DAILY PROGRESS NOTE Page [phone] to reach a provider 28/09 Admit Date: 08/28/2023 Encounter Date September 06, 2023 Anticipated Discharge Date: 09/08/2023 Hospital Day: 9 Active Hospital Problems Diagnosis NSTEMI (non-ST elevated myocardial infarction) Resolved Hospital Problems No resolved problems to display. 24 Hour Events/Subjective: - NAEON - Reports ongoing chest pain. Reports abdominal pain with ambulation. Medications: Scheduled Meds: torsemide 20 mg Oral Daily miconazole nitrate Topical (Top) BID ranolazine ER 500 mg Oral BID amLODIPine 2.5 mg Oral Daily apixaban 5 mg Oral BID gabapentin 600 mg Oral Nightly atorvastatin 40 mg Oral QPM DULoxetine DR 60 mg Oral Daily pantoprazole EC 40 mg Oral Daily rOPINIRole 2 mg Oral BID spironolactone 25 mg Oral Daily topiramate 100 mg Oral Nightly sodium chloride 0.9 % (flush) 5 mL Intravenous BID aspirin 81 mg Oral Daily Continuous Infusions: PRN Meds:.potassium chloride ER, LORazepam, zolpidem, polyethylene glycoL (MIRALAX) oral powder, ipratropium-albuteroL, nitroGLYcerin, sodium chloride 0.9 % (flush), lidocaine, melatonin Objective: Last value Range last 24 hrs Temp: 36.4 ??C (97.6 ??F) Temp: [36.4 ??C (97.6 ??F)-36.8 ??C (98.3 ??F)] Heart Rate: 55 Heart Rate from SpO2: 55 bpm Heart Rate: [51-66] BP: 105/53 BP: (95-121)/(52-66) Resp: 16 Resp: [16-18] SpO2: 98 % SpO2: [98 %-99 %] Height: 162.6 cm (5' 4) Weight: 99.3 kg (218 lb 14.4 oz) BMI (Calculated): 38.48 BMI Classification: Obese Admit weight: 101.7 kg Patient Vitals for the past 168 hrs: Weight 09/06/23 0600 99.3 kg (218 lb 14.4 oz) 09/05/23 0533 99.7 kg (219 lb 11.2 oz) 09/04/23 0453 99 kg (218 lb 3.2 oz) 09/03/23 0536 98.2 kg (216 lb 9.6 oz) Intake/Output Summary (Last 24 hours) at 09/06/20232017 Last data filed at 09/06/20232005 Gross per 24 hour Intake 900 ml Output 1500 ml Net -600 ml Physical Exam: Gen: Sitting up in a chair, no acute distress, HEENT: NCAT, EOMI, PERRLA CV: RRR, no murmurs appreciated Resp: CTAB without wheezes, rales, rhonchi Abdomen: soft, tenderness elicited with palpation of the left mid and lower abdomen Extremities: No swelling, warm and well perfused Skin: No rashes or lesions present on exposed skin Joints: No swelling, synovitis, or tenderness in any joints examined including hands, wrists, elbows, ankles, and feet. Labs: Recent Labs 09/06/23 0244 09/05/23 0158 09/04/23 0303 09/03/23 0239 09/02/23 0318 WBC 7.5 7.9 8.2 8.6 7.6 HGB 13.6 13.7 14.8 15.2 13.6 HCT 40.2 40.5 41.8 45.4 41.0 PLATELET 274 282 306 295 275 MCV 94.4 92.5 91.9 94.0 94.7* Recent Labs 09/06/23 0244 09/05/23 0158 09/04/23 1411 09/04/23 0913 09/04/23 0425 09/04/23 0303 09/03/23 0239 09/02/23 0318 09/01/23 0308 08/31/23 1703 NA 137 136 136 -- -- 134* 138 140 < > 138 CL 102 99 96* -- -- 92* 93* 101 < > 101 CO2 25 25 25 -- -- 26 30 25 < > 23 K 3.6 3.6 3.7 3.2* 2.9* Not Perf 3.4* 3.7 < > 3.8 MAGNESIUM 0.95 1.02 -- -- -- 1.07 0.98 0.91 < > 0.95 PHOS -- -- -- -- -- -- -- -- -- 3.8 CALCIUM 9.5 9.5 9.6 -- -- 10.0 10.4 9.5 < > 9.6 BUN 16 24* 24* -- -- 28* 23* 17 < > 17 CREATININE 1.05 1.10 1.34* -- -- 1.32* 1.53* 1.20 < > 1.14 < > = values in this interval not displayed. Coags No results for input(s): INR, PT, PTT, DDIMER in the last 168 hours. Cardiac Markers Recent Labs 09/02/23201509/02/23 1705 09/02/23 0905 09/02/23 0318 TROPONINTHS 24* 24* 22* 23* PROBNP -- 985* -- -- Endocrine Recent Labs 06/15/23 0428 04/18/23 0210 04/17/23 0333 02/08/23 2208 TSH 2.98 -- 5.93* 4.00 HA1C -- 5.6 -- -- No results for input(s): CHLPL, TRIG, HDL, LDLCHOL, CHOLHDL in the last 168 hours. Recent Labs 09/06/23 0244 09/05/23 0158 09/04/23 1411 GLUCOSE 100 103 104 Telemetry: I have personally reviewed and interpreted the telemetry from the last 24 hours. Resultsshow SR/SB. Imaging: No results found for this visit on 08/28/23 (from the past 24 hour(s)). Assessment: Loida Madrigal is a 53 y.o. female with a PMH of mild nonobstructive mid LAD ASCVD on CCTA 09/2022, remote cardiac catheterization with normal coronaries 08/2019 with repeat LHC 04/2023 with nonobstructive CAD, PET 08/17/2023 showing septal, anterior wall scar with global reduction in MBFR (EKG portion showing diffuse ST-D), supraventricular tachycardia (AVNRT since 06/2021) s/p EPS and SVT ablation on 04/01/[address] 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 Patient found to have acute exacerbation of HFpEF, likely d/t microvascular dysfunction. Cardiology consulted. Loida continues to experience chest pain despite robust medication regimen, titrated to the limits that her BP will allow. Creatinine normalized, schedule diuretics to resume today to start findingappropriate maintenance dose for discharge. Hypokalemia (presumed diuretic induced) improving with repletion. She reports hypokalemia has been an issue for her with diuretics in the past so pending course may need regular potassium supplementation. Obtaining CT abdomen/pelvis to evaluate patency of SMA stent and for additional pathology which might explain new/worsening left sided abdominal pain. Loida continues to express concerns that her discharge will not be successful due to ongoing symptoms. She will need robust outpatient support and would benefit from contact with the heart failure nursing team to help reduce likelihood of readmission. Plan: #Acute Decompensated HFpEF -torsemide 20 mg daily (previous outpatient dose 40 mg BID) will need optimization prior to discharge and ongoing active management at home - continue home spironolactone - using NIV with naps and sleeping - work up for infiltrative conditions has been unrevealing #new/worsening left sided abdominal pain #SMA stenosis s/p stent 06/2023 - CT A/P ordered #NSTEMI, type I vs type II iso ADHF #Concern for microvascular dysfunction -Telemetry monitoring -Cardiology consulted -Continue ASA 81 mg daily s/p 324 mg at OSH -Plavix stopped -apixiban 5 mg po bid -amlodipine 2.5mg restarted -continue Atorvastatin 40mg PO daily -Continue ranolazine (started last admission but unclear how much it's been helping) -consider low dose BB pending HR trend (mostly in the 60s today) #Bradycardia #Hypotension - resolved #GERD #Esophageal dysphagia - Continue home PPI - outpatient esophagram and gastric emptying scan ordered #Restrictive lung disease secondary to obesity -Incentive spirometry -unclear if she's had repeat PFTs since 2020, would consider obtaining outpatient #Paroxysmal A-fib #Remote PE #Supraventricular tachycardia (AVNRT since 06/2021) AC as above #Hx Migraines #Restless Legs - continue home topiramate - continue home ropinarole - continue home duloxetine - continue home neurontin - iron studies normal #Vulvar tissue bleeding - aloe vesta ointment Diet: Daily Healthy Menu Choices/Cardiac diet ([facility]-Diet) DVT Prophylaxis: DOAC Code status: Attempt Cardiopulmonary Resuscitation - Inpatient Disposition: Discharge Location: AM-PAC Basic Mobility Raw Score: 24 PT: OT: PCP JOCY Franco [phone] Lloyd Keating MD 09/06/2023 * Channing Montanez RCP - 09/05/2023 11:17 PM EDT Patient on NIV for the night. Patient appears comfortable, is knowledgeable on device, no assistance needed from RT 09/05/23 2210 IPASS Illness Severity Stable Non Invasive Ventilation Data NIV Device Air Curve 10 NIV Mode S/T NIV Charges $ NIV Mach. Subsequent Day Yes NIV Settings Patient Type Adult FiO2 (%) 21 % IPAP (cmH20) 22 EPAP (cmH20) 16 Pressure Support (cm H2O) 6 Trigger Type Auto Trak Sensitive NIV Humidifier Temp 1 NIV Humid. H2O Level 3/4 NIV Interface NIV Interface Options Face Mask Mask Size (ped / adult) Medium NIV Skin Assessment NIV Skin Assessment WDL WDL Mepilex Applied No * Samantha Broussard MD - 09/05/2023 4:16 PM EDT Inpatient Cardiology (CV1) - Progress Note Admit Date: 08/28/2023 Hospital Day 8 days ID: Loida Madrigal is a 53 y.o. female with a PMH of hx of mild nonobstructive mid LAD ASCVD onCCTA 09/2022, remote cardiac catheterization with normal coronaries 08/2019 with repeat LHC 04/2023 with nonobstructive CAD, PET 08/17/2023 showing septal, anterior wall scar with global reduction in MBFR (EKG portion showing diffuse ST-D), supraventricular tachycardia (AVNRT since 06/2021) s/p EPS andSVT ablation on 04/01/[address] Tovar, paroxysmal A-fib (diagnosed on 10/20/2022), HFpEF, pulmonaryemboli on Eliquis, restrictive lung disease secondary to obesity, MARYLOU on CPAP, SMA artery stenosis s/p stenting, GERD, and esophageal dysphagia (following with GI), who presented to the ED at OSH with chest pain, transferred to [facility] for further management of NSTEMI. On arrival, patient found to have acute exacerbation of HFpEF, likely d/t microvascular dysfunction. Cardiology consulted. Problem List: Active Hospital Problems Diagnosis NSTEMI (non-ST elevated myocardial infarction) Resolved Hospital Problems No resolved problems to display. Active Non-Hospital Problems Diagnosis Endometriosis Stenosis of left carotid artery greater than 50% Restrictive lung disease secondary to obesity Paresthesia of hand, bilateral Paroxysmal atrial fibrillation SVT (supraventricular tachycardia) Chest pain Obesity Dyslipidemia Obstructive sleep apnea syndrome Insomnia (HFpEF) heart failure with preserved ejection fraction Restless legs Asthma 24 Hour Events/Subjective: Continues to have frequent chest pain and heaviness HR trend 50s-60s Reports left sided abdominal pain which is worse with ambulation. This is felt to be increasing in intensity since July. Physical Exam: Last Set of Vitals and range of vitals over past 24 hours: Last value Range last 24 hrs Temperature Temp: 36.9 ??C (98.4 ??F) Temp: [36.5 ??C (97.7 ??F)-36.9 ??C (98.4 ??F)] Heart Rate Heart Rate: 53 Heart Rate: [41-120] Blood Pressure BP: 109/64 BP: (105-118)/(53-64) Respiratory Rate Resp: 16 Resp: [16-18] SpO2 SpO2: 98 % SpO2: [96 %-99 %] Physical Exam: Gen: Sitting up in a chair, no acute distress, but becomes tearful occasionally when discussing symptoms and medical history HEENT: NCAT, EOMI, PERRLA CV: RRR, no murmurs appreciated Resp: CTAB without wheezes, rales, rhonchi Abdomen: soft, tenderness elicited with palpation of the left mid and lower abdomen Extremities: No swelling, warm and well perfused Skin: No rashes or lesions present on exposed skin Joints: No swelling, synovitis, or tenderness in any joints examined including hands, wrists, elbows, ankles, and feet. Laboratory (Last 24 Hours): Recent Results (from the past 24 hour(s)) Magnesium Result Value Ref Range Magnesium 1.02 0.69 - 1.07 mmol/L Basic Metabolic Panel (non-fasting) Result Value Ref Range Glucose Lvl 103 65 - 199 mg/dL BUN 24 (H) 8 - 18 mg/dL Creatinine 1.10 0.70 - 1.20 mg/dL Sodium 136 135 - 145 mmol/L Potassium 3.6 3.5 - 5.0 mmol/L Chloride 99 98 - 107 mmol/L CO2 25 22 - 31 mmol/L Anion Gap 12 5 - 15 mmol/L Calcium 9.5 8.5 - 10.5 mg/dL Estimated GFR 60 >=60 mL/min/1.73 m?? Miscellaneous Lab request Result Value Ref Range [facility] Lab Result Request received in lab. Hemogram Result Value Ref Range WBC 7.9 4.0 - 9.5 x10(3)/mcL RBC 4.38 4.00 - 5.21 x10(6)/mcL Hemoglobin 13.7 11.7 - 15.5 g/dL Hematocrit 40.5 35.7 - 45.8 % MCV 92.5 82.6 - 94.4 fL MCH 31.3 27.1 - 32.0 pg MCHC 33.8 31.7 - 35.0 g/dL Platelets 282 145 - 357 x10(3)/mcL RDWSD 44.0 37.0 - 46.0 fL RDWCV 13.0 11.5 - 14.1 % MPV 10.4 7.6 - 12.9 fL nRBC % Auto 0.0 % nRBC Abs Auto 0.000 0.000 - 0.000 x10(3)/mcL Differential, Automated Result Value Ref Range Neutrophils % 54.5 % Neutr Abs (ANC) 4.32 1.70 - 6.10 x10(3)/mcL Lymphocytes % 30.5 % Lymphocytes Abs 2.4 0.9 - 3.2 x10(3)/mcL Monocytes % 11.4 % Monocyte Abs 0.9 0.3 - 0.9 x10(3)/mcL Eosinophils % 2.8 % Eosinophils Abs 0.2 0.0 - 0.4 x10(3)/mcL Basophils % 0.5 % Basophils Abs 0.0 0.0 - 0.1 x10(3)/mcL Immature Gran % 0.30 % Shonda Gran Abs 0.02 0.00 - 0.04 x10(3)/mcL Microbiology: No new Radiology: No new Other Studies: No new Assessment: Loida Madrigal is a 53 y.o. female with a PMH of hx of mild nonobstructive mid LAD ASCVD on CCTA 09/2022, remote cardiac catheterization with normal coronaries 08/2019 with repeat LHC 04/2023 with nonobstructive CAD, PET 08/17/2023 showing septal, anterior wall scar with global reduction in MBFR (EKG portion showing diffuse ST-D), supraventricular tachycardia (AVNRT since 06/2021) s/p EPS and SVTablation on 04/01/[address] 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 Patient found to have acute exacerbation of HFpEF, likely d/t microvascular dysfunction. Cardiology consulted. Loida continues to experience chest pain despite robust medication regimen, titrated to the limits that her BP will allow. Creatinine normalized today, will schedule diuretics to resume tomorrow tostart finding appropriate maintenance dose for discharge. Hypokalemia (presumed diuretic induced) improving with repletion. She reports hypokalemia has been an issue for her with diuretics in the past so pending course may need regular potassium supplementation. Obtaining CT abdomen/pelvis to evaluate patency of SMA stent and for additional pathology which might explain new/worsening left sided abdominal pain. Loida continues to express concerns that her discharge will not be successful due to ongoing symptoms. She will need robust outpatient support and would benefit from contact with the heart failure nursing team to help reduce likelihood of readmission. Plan: #Acute Decompensated HFpEF - continuing diuretic holiday after overdiuresis today, torsemide 20 mg ordered for tomorrow (previous outpatient dose 40 mg BID) will need optimization prior to discharge and ongoing active management at home - continue home spironolactone - using NIV with naps and sleeping - work up for infiltrative conditions has been unrevealing #new/worsening left sided abdominal pain #SMA stenosis s/p stent 06/2023 - CT A/P ordered #NSTEMI, type I vs type II iso ADHF #Concern for microvascular dysfunction -Telemetry monitoring -Cardiology consulted -Continue ASA 81 mg daily s/p 324 mg at OSH -Plavix stopped -apixiban 5 mg po bid -amlodipine 2.5mg restarted -continue Atorvastatin 40mg PO daily -Continue ranolazine (started last admission but unclear how much it's been helping) -consider low dose BB pending HR trend (mostly in the 60s today) #Bradycardia #Hypotension - resolved #GERD #Esophageal dysphagia - Continue home PPI - outpatient esophagram and gastric emptying scan ordered #Restrictive lung disease secondary to obesity -Incentive spirometry -unclear if she's had repeat PFTs since 2020, would consider obtaining outpatient #Paroxysmal A-fib #Remote PE #Supraventricular tachycardia (AVNRT since 06/2021) AC as above #Hx Migraines #Restless Legs - continue home topiramate - continue home ropinarole - continue home duloxetine - continue home neurontin - iron studies normal #Vulvar tissue bleeding - aloe vesta ointment Diet: Daily Healthy Menu Choices/Cardiac diet ([facility]-Diet) DVT Prophlaxis: DOAC Code status: Attempt Cardiopulmonary Resuscitation - Inpatient Samantha Broussard MD 09/05/2023 * Shilpa Schwab, DT - 09/05/2023 1:28 PM EDT Nutrition Services Note - Low Nutrition Acuity Loida Madrigal is a 53 y.o. female Reason for intervention: hospital day 9 Nutrition Plan: Continue current diet Encourage good PO Aldactone noted Previous lasix, toursemide, and imdur noted Support and encouragement provided Patient screened for hospital length of stay and administrative underwriter met patient at bedside. Patient states thattheir appetite is good, and UBW is 218 lbs. Patient denies difficulty chewing/swallowing or nausea/vomiting, and voiced she is able to finish all of her meals. Patient has excellent PO intakes recorded at 75-100% of the past 5 days and according to dining services ordered ~1574 kcal/day over the last 4 days. Weight loss observed by graph not c/s significant: see I/O's. Clinical to nutrition to monitor follow up. Active Orders Diet Daily Healthy Menu Choices/Cardiac diet ([facility]-Diet) Frequency: Effective Now Number of Occurrences: Until Specified Admit Weight: 101.7 kg Estimated body mass index is 37.71 kg/m?? as calculated from the following: Height as of this encounter: 162.6 cm (5' 4). Weight as of this encounter: 99.7 kg (219 lb 11.2 oz). Wt Readings from Last 5 Encounters: 09/05/23 99.7 kg (219 lb 11.2 oz) 08/25/23 100.7 kg (222 lb) 08/17/23 99.8 kg (220 lb 0.3 oz) 08/03/23 99.8 kg (220 lb) 07/29/23 101.6 kg (224 lb) Weight loss: not clinically significant Appetite: Excellent (75%-100%) Food allergies:no known food allergies Chewing/Swallowing difficulty: none Nausea/Vomiting: no nausea and no vomiting Last Bowel Movement: 09/02/23 Patient education / questions: all nutrition related questions answered at this time Nutrition services to follow weekly through hospital course unless consulted in the interim. LORNA [employer] Specialist * Samantha Broussard MD - 09/04/2023 8:35 AM EDT Inpatient Cardiology (CV1) - Progress Note Admit Date: 08/28/2023 Hospital Day 7 days ID: Loida Madrigal is a 53 y.o. female with a PMH of hx of mild nonobstructive mid LAD ASCVD onCCTA 09/2022, remote cardiac catheterization with normal coronaries 08/2019 with repeat LHC 04/2023 with nonobstructive CAD, PET 08/17/2023 showing septal, anterior wall scar with global reduction in MBFR (EKG portion showing diffuse ST-D), supraventricular tachycardia (AVNRT since 06/2021) s/p EPS andSVT ablation on 04/01/[address] Tovar, paroxysmal A-fib (diagnosed on 10/20/2022), HFpEF, pulmonaryemboli on Eliquis, restrictive lung disease secondary to obesity, MARYLOU on CPAP, SMA artery stenosis s/p stenting, GERD, and esophageal dysphagia (following with GI), who presented to the ED at OSH with chest pain, transferred to [facility] for further management of NSTEMI. On arrival, patient found to have acute exacerbation of HFpEF, likely d/t microvascular dysfunction. Cardiology consulted. Problem List: Active Hospital Problems Diagnosis NSTEMI (non-ST elevated myocardial infarction) Resolved Hospital Problems No resolved problems to display. Active Non-Hospital Problems Diagnosis Endometriosis Stenosis of left carotid artery greater than 50% Restrictive lung disease secondary to obesity Paresthesia of hand, bilateral Paroxysmal atrial fibrillation SVT (supraventricular tachycardia) Chest pain Obesity Dyslipidemia Obstructive sleep apnea syndrome Insomnia (HFpEF) heart failure with preserved ejection fraction Restless legs Asthma 24 Hour Events/Subjective: Continues to have frequent chest pain and heaviness which radiates to her back and her jaw and the sensation that her heart is under stress . HR blip to 108 noted on review of vitals. Reports that her heart races with minor activity Feels like she's beginning to retain fluid again Headache feels better today Physical Exam: Last Set of Vitals and range of vitals over past 24 hours: Last value Range last 24 hrs Temperature Temp: 36.5 ??C (97.7 ??F) Temp: [36.4 ??C (97.5 ??F)-36.9 ??C (98.5 ??F)] Heart Rate Heart Rate: 60 Heart Rate: [44-86] Blood Pressure BP: 121/63 BP: (101-125)/(59-69) Respiratory Rate Resp: 16 Resp: [16-18] SpO2 SpO2: 97 % SpO2: [96 %-99 %] Physical Exam: Gen: Sitting up in a chair, no acute distress, but becomes tearful occasionally when discussing symptoms and medical history HEENT: NCAT, EOMI, PERRLA CV: RRR, no murmurs appreciated Resp: CTAB without wheezes, rales, rhonchi Abdomen: soft, NTND Extremities: No swelling, warm and well perfused Skin: No rashes or lesions present on exposed skin Joints: No swelling, synovitis, or tenderness in any joints examined including hands, wrists, elbows, ankles, and feet. Laboratory (Last 24 Hours): Recent Results (from the past 24 hour(s)) Magnesium Result Value Ref Range Magnesium 1.07 0.69 - 1.07 mmol/L Basic Metabolic Panel (non-fasting) Result Value Ref Range Glucose Lvl 117 65 - 199 mg/dL BUN 28 (H) 8 - 18 mg/dL Creatinine 1.32 (H) 0.70 - 1.20 mg/dL Sodium 134 (L) 135 - 145 mmol/L Potassium Not Perf 3.5 - 5.0 Chloride 92 (L) 98 - 107 mmol/L CO2 26 22 - 31 mmol/L Anion Gap 16 (H) 5 - 15 mmol/L Calcium 10.0 8.5 - 10.5 mg/dL Estimated GFR 48 (L) >=60 mL/min/1.73 m?? Hemogram Result Value Ref Range WBC 8.2 4.0 - 9.5 x10(3)/mcL RBC 4.55 4.00 - 5.21 x10(6)/mcL Hemoglobin 14.8 11.7 - 15.5 g/dL Hematocrit 41.8 35.7 - 45.8 % MCV 91.9 82.6 - 94.4 fL MCH 32.5 (H) 27.1 - 32.0 pg MCHC 35.4 (H) 31.7 - 35.0 g/dL Platelets 306 145 - 357 x10(3)/mcL RDWSD 42.8 37.0 - 46.0 fL RDWCV 12.8 11.5 - 14.1 % MPV 10.2 7.6 - 12.9 fL nRBC % Auto 0.0 % nRBC Abs Auto 0.000 0.000 - 0.000 x10(3)/mcL Differential, Automated Result Value Ref Range Neutrophils % 59.0 % Neutr Abs (ANC) 4.85 1.70 - 6.10 x10(3)/mcL Lymphocytes % 26.3 % Lymphocytes Abs 2.2 0.9 - 3.2 x10(3)/mcL Monocytes % 10.4 % Monocyte Abs 0.8 0.3 - 0.9 x10(3)/mcL Eosinophils % 3.4 % Eosinophils Abs 0.3 0.0 - 0.4 x10(3)/mcL Basophils % 0.5 % Basophils Abs 0.0 0.0 - 0.1 x10(3)/mcL Immature Gran % 0.40 % Shonda Gran Abs 0.03 0.00 - 0.04 x10(3)/mcL Potassium Result Value Ref Range Potassium 2.9 (CRIT) 3.5 - 5.0 mmol/L Microbiology: No new Radiology: No new Other Studies: No new Assessment: Loida Madrigal is a 53 y.o. female with a PMH of hx of mild nonobstructive mid LAD ASCVD on CCTA 09/2022, remote cardiac catheterization with normal coronaries 08/2019 with repeat LHC 04/2023 with nonobstructive CAD, PET 08/17/2023 showing septal, anterior wall scar with global reduction in MBFR (EKG portion showing diffuse ST-D), supraventricular tachycardia (AVNRT since 06/2021) s/p EPS and SVTablation on 04/01/[address] Tovar, paroxysmal A-fib (diagnosed on 10/20/2022), HFpEF, pulmonary emboli on Eliquis, restrictive lung disease secondary to obesity, MARYLOU on CPAP, SMA artery stenosis, s/pstenting, GERD, and esophageal dysphagia (following with GI), who presented to the ED at OSH with ch est pain, found to have elevated NSTEMI, transferred to [facility] for further management of NSTEMI. Patient found to have acute exacerbation of HFpEF, likely d/t microvascular dysfunction. Cardiology consulted. Loida continues to experience chest pain despite robust medication regimen, titrated to the limits that her BP will allow. Creatinine improving and will allow diuretic holiday for one more day, anticipate beginning to find reasonable oral diuretic regimen tomorrow. Hypokalemia (presumed diuretic induced) improving with repletion. Plan: #Acute Decompensated HFpEF - continuing diuretic holiday after overdiuresis for one more day, anticipate oral diuretic tomorrow - continue home spironolactone - using NIV with naps and sleeping - work up for infiltrative conditions has been unrevealing #NSTEMI, type I vs type II iso ADHF #Concern for microvascular dysfunction -Telemetry monitoring -Cardiology consulted -Continue ASA 81 mg daily s/p 324 mg at OSH -Plavix stopped -apixiban 5 mg po bid -amlodipine 2.5mg restarted -continue Atorvastatin 40mg PO daily -Continue ranolazine - will decrease dose tonight however, as unclear to her if has been helping -consider low dose BB pending HR trend (mostly in the 60s today) #Bradycardia #Hypotension - resolved #GERD #Esophageal dysphagia - Continue home PPI - outpatient esophagram and gastric emptying scan ordered #Restrictive lung disease secondary to obesity -Incentive spirometry -unclear if she's had repeat PFTs since 2020, would consider obtaining outpatient #Paroxysmal A-fib #Remote PE #Supraventricular tachycardia (AVNRT since 06/2021) AC as above #Hx Migraines #Restless Legs - continue home topiramate - continue home ropinarole - continue home duloxetine - continue home neurontin #Vulvar tissue bleeding - aloe vesta ointment Diet: Daily Healthy Menu Choices/Cardiac diet ([facility]-Diet) DVT Prophlaxis: DOAC Code status: Attempt Cardiopulmonary Resuscitation - Inpatient Samantha Broussard MD 09/04/2023 * Lorna Herr MD - 09/03/2023 8:56 PM EDT Inpatient Cardiology ([facility]) - Progress Note Admit Date: 08/28/2023 Hospital Day 6 days Problem List: Active Hospital Problems Diagnosis NSTEMI (non-ST elevated myocardial infarction) Resolved Hospital Problems No resolved problems to display. Active Non-Hospital Problems Diagnosis Endometriosis Stenosis of left carotid artery greater than 50% Restrictive lung disease secondary to obesity Paresthesia of hand, bilateral Paroxysmal atrial fibrillation SVT (supraventricular tachycardia) Chest pain Obesity Dyslipidemia Obstructive sleep apnea syndrome Insomnia (HFpEF) heart failure with preserved ejection fraction Restless legs Asthma 24 Hour Events: Continues to have frequent chest pain Has TAM today Subjective: TAM and feeling unwell today (got imdur which may explain TAM) Tried ativan for nausea with some effect Physical Exam: Last Set of Vitals and range of vitals over past 24 hours: Last value Range last 24 hrs Temperature Temp: 36.9 ??C (98.4 ??F) Temp: [36.4 ??C (97.6 ??F)-36.9 ??C (98.5 ??F)] Heart Rate Heart Rate: 61 Heart Rate: [53-74] Blood Pressure BP: 116/69 BP: (101-132)/(59-81) Respiratory Rate Resp: 18 Resp: [16-18] SpO2 SpO2: 96 % SpO2: [96 %-99 %] Physical Exam Constitutional: Appearance: Normal appearance. HENT: Head: Normocephalic and atraumatic. Mouth/Throat: Mouth: Mucous membranes are moist. Pharynx: Oropharynx is clear. Eyes: Extraocular Movements: Extraocular movements intact. Pupils: Pupils are equal, round, and reactive to light. Cardiovascular: Rate and Rhythm: Normal rate and regular rhythm. Pulmonary: Effort: Pulmonary effort is normal. Breath sounds: Normal breath sounds. Abdominal: General: Bowel sounds are normal. Palpations: Abdomen is soft. Genitourinary: Comments: She had abrasions of her vulvar tissue bilaterally with blood visible on exam Musculoskeletal: General: No swelling. Normal range of motion. Skin: General: Skin is warm. Neurological: General: No focal deficit present. Mental Status: She is alert and oriented to person, place, and time. Mental status is at baseline. Psychiatric: Mood and Affect: Mood normal. Behavior: Behavior normal. Thought Content: Thought content normal. Judgment: Judgment normal. Laboratory (Last 24 Hours): Recent Results (from the past 24 hour(s)) Protein Electrophoresis, urine, random Result Value Ref Range U Protein Ran <6 0 - 12 mg/dL U Albumin See Note U Globulin Not Perf U M Band Not Perf U PEP Comments See Note Magnesium Result Value Ref Range Magnesium 0.98 0.69 - 1.07 mmol/L Basic Metabolic Panel (non-fasting) Result Value Ref Range Glucose Lvl 108 65 - 199 mg/dL BUN 23 (H) 8 - 18 mg/dL Creatinine 1.53 (H) 0.70 - 1.20 mg/dL Sodium 138 135 - 145 mmol/L Potassium 3.4 (L) 3.5 - 5.0 mmol/L Chloride 93 (L) 98 - 107 mmol/L CO2 30 22 - 31 mmol/L Anion Gap 15 5 - 15 mmol/L Calcium 10.4 8.5 - 10.5 mg/dL Estimated GFR 40 (L) >=60 mL/min/1.73 m?? Protein Electrophoresis, serum Result Value Ref Range Total Prot Elec 7.9 6.1 - 8.0 g/dL Albumin Elect 4.87 3.20 - 5.20 g/dL Alpha1-Globulin 0.21 0.10 - 0.30 g/dL Alpha2-Globulin 1.03 (H) 0.40 - 0.90 g/dL Beta Globulin 0.90 0.50 - 1.00 g/dL Gamma Globulin 0.88 0.50 - 1.30 g/dL M1 Band None Detected None Detected Hemogram Result Value Ref Range WBC 8.6 4.0 - 9.5 x10(3)/mcL RBC 4.83 4.00 - 5.21 x10(6)/mcL Hemoglobin 15.2 11.7 - 15.5 g/dL Hematocrit 45.4 35.7 - 45.8 % MCV 94.0 82.6 - 94.4 fL MCH 31.5 27.1 - 32.0 pg MCHC 33.5 31.7 - 35.0 g/dL Platelets 295 145 - 357 x10(3)/mcL RDWSD 44.1 37.0 - 46.0 fL RDWCV 12.8 11.5 - 14.1 % MPV 10.3 7.6 - 12.9 fL nRBC % Auto 0.0 % nRBC Abs Auto 0.000 0.000 - 0.000 x10(3)/mcL Differential, Automated Result Value Ref Range Neutrophils % 61.1 % Neutr Abs (ANC) 5.22 1.70 - 6.10 x10(3)/mcL Lymphocytes % 24.2 % Lymphocytes Abs 2.1 0.9 - 3.2 x10(3)/mcL Monocytes % 10.3 % Monocyte Abs 0.9 0.3 - 0.9 x10(3)/mcL Eosinophils % 3.6 % Eosinophils Abs 0.3 0.0 - 0.4 x10(3)/mcL Basophils % 0.6 % Basophils Abs 0.0 0.0 - 0.1 x10(3)/mcL Immature Gran % 0.20 % Shonda Gran Abs 0.02 0.00 - 0.04 x10(3)/mcL Microbiology: No new Radiology: No new Other Studies: No new Assessment: Loida Madrigal is a 53 y.o. female with a PMH of hx of mild nonobstructive mid LAD ASCVD on CCTA 09/2022, remote cardiac catheterization with normal coronaries 08/2019 with repeat LHC 04/2023 with nonobstructive CAD, PET 08/17/2023 showing septal, anterior wall scar with global reduction in MBFR (EKG portion showing diffuse ST-D), supraventricular tachycardia (AVNRT since 06/2021) s/p EPS and SVTablation on 04/01/[address] Tovar, paroxysmal A-fib (diagnosed on 10/20/2022), HFpEF, pulmonary emboli on Eliquis, restrictive lung disease secondary to obesity, MARYLOU on CPAP, SMA artery stenosis, s/pstenting, GERD, and esophageal dysphagia (following with GI), who presented to the ED at OSH with ch est pain, found to have elevated NSTEMI, transferred to [facility] for further management of NSTEMI. Patient found to have acute exacerbation of HFpEF, likely d/t microvascular dysfunction. Cardiology consulted, and patient undergoing IV diuresis. Plan: #Acute Decompensated HFpEF - unfortunately now appears overdiuresed, based on labs - hold loop diuretics today - continue home spironolactone - using NIV with naps and sleeping - reviewed all studies and considered other causes of infiltrative CMP - Sarcoid does not seem likely, but could be late onset Fabry's and amyloidosis. She does also have carpal tunnel syndrome. Her cardiac MRI looked more typical for sarcoid, less typical for amyloid, but follow up testing (NM PET) was negative for FDG update (therefore unlikely sarcoid). - UPEP - protein too low - Alpha 2 globulin elevated (not by much) on serum immunofixation. 08/24 she also had elevated kappafree light chains (again, not particularly high, but elevated) #NSTEMI, type I vs type II iso ADHF #Concern for microvascular dysfunction -Telemetry monitoring -Cardiology consulted -Continue ASA 81 mg daily s/p 324 mg at OSH -Plavix stopped -apixiban 5 mg po bid -amlodipine 2.5mg restarted -continue Atorvastatin 40mg PO daily -Continue ranolazine - will decrease dose tonight however, as unclear to her if has been helping -HR today has been trending a bit higher, might have room tomorrow to add low dose beta tiffanie #Bradycardia #Hypotension - patient noted to be bradycardic to HR 40s with MAPs 50s-60s at OSH. Briefly on dopamine, though weaned off prior to arrival - depending on status tomorrow, could try low dose beta tiffanie - monitor on tele #GERD #Esophageal dysphagia -Continue home PPI #Restrictive lung disease secondary to obesity -Incentive spirometry #Paroxysmal A-fib #Remote PE #Supraventricular tachycardia (AVNRT since 06/2021) AC as above #Hx Migraines #Restless Legs - continue home topiramate - continue home ropinarole - continue home duloxetine - continue home neurontin #Vulvar tissue bleeding - aloe vesta ointment Diet: Daily Healthy Menu Choices/Cardiac diet ([facility]-Diet) DVT Prophlaxis: DOAC Code status: Attempt Cardiopulmonary Resuscitation - Inpatient Lorna Herr MD 09/03/2023 * Lorna Herr MD - 09/02/2023 7:12 PM EDT Inpatient Cardiology ([facility]) - Progress Note Admit Date: 08/28/2023 Hospital Day 5 days Problem List: Active Hospital Problems Diagnosis NSTEMI (non-ST elevated myocardial infarction) Resolved Hospital Problems No resolved problems to display. Active Non-Hospital Problems Diagnosis Endometriosis Stenosis of left carotid artery greater than 50% Restrictive lung disease secondary to obesity Paresthesia of hand, bilateral Paroxysmal atrial fibrillation SVT (supraventricular tachycardia) Chest pain Obesity Dyslipidemia Obstructive sleep apnea syndrome Insomnia (HFpEF) heart failure with preserved ejection fraction Restless legs Asthma 24 Hour Events: Chest pain early in am, before I arrived, and then later in day as well Also noticed bleeding from vagina Subjective: Pain did recede over day Had long talk - she generally feels she is getting worse, keeps re-accumulating fluid more quickly than she expects and stress at home and lack of sleep is not helping Physical Exam: Last Set of Vitals and range of vitals over past 24 hours: Last value Range last 24 hrs Temperature Temp: 36.6 ??C (97.9 ??F) Temp: [36.4 ??C (97.5 ??F)-36.9 ??C (98.4 ??F)] Heart Rate Heart Rate: 57 Heart Rate: [44-63] Blood Pressure BP: 107/59 BP: (90-107)/(49-61) Respiratory Rate Resp: 18 Resp: [16-18] SpO2 SpO2: 99 % SpO2: [97 %-99 %] Physical Exam Constitutional: Appearance: Normal appearance. HENT: Head: Normocephalic and atraumatic. Mouth/Throat: Mouth: Mucous membranes are moist. Pharynx: Oropharynx is clear. Eyes: Extraocular Movements: Extraocular movements intact. Pupils: Pupils are equal, round, and reactive to light. Cardiovascular: Rate and Rhythm: Normal rate and regular rhythm. Pulmonary: Effort: Pulmonary effort is normal. Breath sounds: Normal breath sounds. Abdominal: General: Bowel sounds are normal. Palpations: Abdomen is soft. Genitourinary: Comments: She had abrasions of her vulvar tissue bilaterally with blood visible on exam Musculoskeletal: General: No swelling. Normal range of motion. Skin: General: Skin is warm. Neurological: General: No focal deficit present. Mental Status: She is alert and oriented to person, place, and time. Mental status is at baseline. Psychiatric: Mood and Affect: Mood normal. Behavior: Behavior normal. Thought Content: Thought content normal. Judgment: Judgment normal. Laboratory (Last 24 Hours): Recent Results (from the past 24 hour(s)) Magnesium Result Value Ref Range Magnesium 0.91 0.69 - 1.07 mmol/L Basic Metabolic Panel (non-fasting) Result Value Ref Range Glucose Lvl 121 65 - 199 mg/dL BUN 17 8 - 18 mg/dL Creatinine 1.20 0.70 - 1.20 mg/dL Sodium 140 135 - 145 mmol/L Potassium 3.7 3.5 - 5.0 mmol/L Chloride 101 98 - 107 mmol/L CO2 25 22 - 31 mmol/L Anion Gap 14 5 - 15 mmol/L Calcium 9.5 8.5 - 10.5 mg/dL Estimated GFR 54 (L) >=60 mL/min/1.73 m?? Troponin Result Value Ref Range Troponin-T HS 23 (H) <=14 ng/L Hemogram Result Value Ref Range WBC 7.6 4.0 - 9.5 x10(3)/mcL RBC 4.33 4.00 - 5.21 x10(6)/mcL Hemoglobin 13.6 11.7 - 15.5 g/dL Hematocrit 41.0 35.7 - 45.8 % MCV 94.7 (H) 82.6 - 94.4 fL MCH 31.4 27.1 - 32.0 pg MCHC 33.2 31.7 - 35.0 g/dL Platelets 275 145 - 357 x10(3)/mcL RDWSD 45.7 37.0 - 46.0 fL RDWCV 13.2 11.5 - 14.1 % MPV 10.7 7.6 - 12.9 fL nRBC % Auto 0.0 % nRBC Abs Auto 0.000 0.000 - 0.000 x10(3)/mcL Differential, Automated Result Value Ref Range Neutrophils % 58.4 % Neutr Abs (ANC) 4.40 1.70 - 6.10 x10(3)/mcL Lymphocytes % 28.2 % Lymphocytes Abs 2.1 0.9 - 3.2 x10(3)/mcL Monocytes % 8.3 % Monocyte Abs 0.6 0.3 - 0.9 x10(3)/mcL Eosinophils % 4.2 % Eosinophils Abs 0.3 0.0 - 0.4 x10(3)/mcL Basophils % 0.5 % Basophils Abs 0.0 0.0 - 0.1 x10(3)/mcL Immature Gran % 0.40 % Shonda Gran Abs 0.03 0.00 - 0.04 x10(3)/mcL Troponin Result Value Ref Range Troponin-T HS 22 (H) <=14 ng/L Troponin Result Value Ref Range Troponin-T HS 24 (H) <=14 ng/L pro-Brain Natriuretic Peptide Result Value Ref Range ProBNP 985 (H) <=124 pg/mL Microbiology: No new Radiology: No new Other Studies: No new Assessment: Loida Madrigal is a 53 y.o. female with a PMH of hx of mild nonobstructive mid LAD ASCVD on CCTA 09/2022, remote cardiac catheterization with normal coronaries 08/2019 with repeat LHC 04/2023 with nonobstructive CAD, PET 08/17/2023 showing septal, anterior wall scar with global reduction in MBFR (EKG portion showing diffuse ST-D), supraventricular tachycardia (AVNRT since 06/2021) s/p EPS and SVTablation on 04/01/[address] Tovar, paroxysmal A-fib (diagnosed on 10/20/2022), HFpEF, pulmonary emboli on Eliquis, restrictive lung disease secondary to obesity, MARYLOU on CPAP, SMA artery stenosis, s/pstenting, GERD, and esophageal dysphagia (following with GI), who presented to the ED at OSH with ch est pain, found to have elevated NSTEMI, transferred to [facility] for further management of NSTEMI. Patient found to have acute exacerbation of HFpEF, likely d/t microvascular dysfunction. Cardiology consulted, and patient undergoing IV diuresis. Plan: #Acute Decompensated HFpEF - torsemide 80 did not seem effective, gave another 40 this afternoon, metolazone 2.5, and evening dose of torsemide 80 - continue home spironolactone - using NIV with naps and sleeping - reviewed all studies and considered other causes of infiltrative CMP - Sarcoid does not seem likely, but late onset Fabry's and amyloidosis. She does also have carpal tunnel syndrome. Her cardiac MRI looked more typical for sarcoid, less typical for amyloid, but follow up testing (NM PET) was negative for FDG update (therefore unlikely sarcoid). - will discuss with HF team tomorrow - SPEP, UPEP ordered #NSTEMI, type I vs type II iso ADHF #Concern for microvascular dysfunction -Telemetry monitoring -Cardiology consulted -Continue ASA 81 mg daily s/p 324 mg at OSH -Plavix stopped -apixiban 5 mg po bid -amlodipine 2.5mg restarted -continue Atorvastatin 40mg PO daily -Continue ranolazine - will decreased dose tonight however, as unclear to her if has been helping -BB as below #Bradycardia #Hypotension - patient noted to be bradycardic to HR 40s with MAPs 50s-60s at OSH. Briefly on dopamine, though weaned off prior to arrival - depending on status tomorrow, could try low dose beta tiffanie- will decide in am - monitor on tele #GERD #Esophageal dysphagia -Continue home PPI #Restrictive lung disease secondary to obesity -Incentive spirometry #Paroxysmal A-fib #Remote PE #Supraventricular tachycardia (AVNRT since 06/2021) AC as above #Hx Migraines #Restless Legs - continue home topiramate - continue home ropinarole - continue home duloxetine - continue home neurontin Diet: Daily Healthy Menu Choices/Cardiac diet ([facility]-Diet) DVT Prophlaxis: DOAC Code status: Attempt Cardiopulmonary Resuscitation - Inpatient Lorna Herr MD 09/02/2023 * Calista Hernandez RT - 09/02/2023 1:01 AM EDT Respiratory Therapy NIV Note NIV Settings: NIV Mode: S/T IPAP (cmH20): 22 EPAP (cmH20): 16 Pressure Support (cm H2O): 6 FiO2 (%): 21 % O2 Bleed In (LPM): (none) Skin Assessment: NIV Skin Assessment WDL: WDL Mepilex Applied: No Assessment: Patient is independent with putting herself on and off cpap throughout the night. Plan: Continue to support patient Calista RT Elieser * Lorna Herr MD - 09/01/2023 6:42 PM EDT Inpatient Cardiology ([facility]) - Progress Note Admit Date: 08/28/2023 Hospital Day 4 days Problem List: Active Hospital Problems Diagnosis NSTEMI (non-ST elevated myocardial infarction) Resolved Hospital Problems No resolved problems to display. Active Non-Hospital Problems Diagnosis Endometriosis Stenosis of left carotid artery greater than 50% Restrictive lung disease secondary to obesity Paresthesia of hand, bilateral Paroxysmal atrial fibrillation SVT (supraventricular tachycardia) Chest pain Obesity Dyslipidemia Obstructive sleep apnea syndrome Insomnia (HFpEF) heart failure with preserved ejection fraction Restless legs Asthma 24 Hour Events: Had some chest pain early this am, before I called her Subjective: She says pain is getting better when I come to visit, and improved over day (I did several checks) Physical Exam: Last Set of Vitals and range of vitals over past 24 hours: Last value Range last 24 hrs Temperature Temp: 36.3 ??C (97.3 ??F) Temp: [36.3 ??C (97.3 ??F)-36.8 ??C (98.3 ??F)] Heart Rate Heart Rate: 56 Heart Rate: [47-96] Blood Pressure BP: 97/63 BP: (91-114)/(43-69) Respiratory Rate Resp: 18 Resp: [18-19] SpO2 SpO2: 100 % SpO2: [96 %-100 %] Physical Exam Constitutional: Appearance: Normal appearance. HENT: Head: Normocephalic and atraumatic. Mouth/Throat: Mouth: Mucous membranes are moist. Pharynx: Oropharynx is clear. Eyes: Extraocular Movements: Extraocular movements intact. Pupils: Pupils are equal, round, and reactive to light. Cardiovascular: Rate and Rhythm: Normal rate and regular rhythm. Pulmonary: Effort: Pulmonary effort is normal. Breath sounds: Normal breath sounds. Abdominal: General: Bowel sounds are normal. Palpations: Abdomen is soft. Musculoskeletal: General: No swelling. Normal range of motion. Skin: General: Skin is warm. Neurological: General: No focal deficit present. Mental Status: She is alert. Mental status is at baseline. She is disoriented. Psychiatric: Mood and Affect: Mood normal. Behavior: Behavior normal. Thought Content: Thought content normal. Judgment: Judgment normal. Laboratory (Last 24 Hours): Recent Results (from the past 24 hour(s)) Magnesium Result Value Ref Range Magnesium 0.98 0.69 - 1.07 mmol/L Basic Metabolic Panel (non-fasting) Result Value Ref Range Glucose Lvl 110 65 - 199 mg/dL BUN 20 (H) 8 - 18 mg/dL Creatinine 1.22 (H) 0.70 - 1.20 mg/dL Sodium 138 135 - 145 mmol/L Potassium 4.0 3.5 - 5.0 mmol/L Chloride 101 98 - 107 mmol/L CO2 23 22 - 31 mmol/L Anion Gap 14 5 - 15 mmol/L Calcium 9.7 8.5 - 10.5 mg/dL Estimated GFR 53 (L) >=60 mL/min/1.73 m?? Hemogram Result Value Ref Range WBC 7.0 4.0 - 9.5 x10(3)/mcL RBC 4.18 4.00 - 5.21 x10(6)/mcL Hemoglobin 13.6 11.7 - 15.5 g/dL Hematocrit 39.8 35.7 - 45.8 % MCV 95.2 (H) 82.6 - 94.4 fL MCH 32.5 (H) 27.1 - 32.0 pg MCHC 34.2 31.7 - 35.0 g/dL Platelets 232 145 - 357 x10(3)/mcL RDWSD 45.0 37.0 - 46.0 fL RDWCV 13.1 11.5 - 14.1 % MPV 10.2 7.6 - 12.9 fL nRBC % Auto 0.0 % nRBC Abs Auto 0.000 0.000 - 0.000 x10(3)/mcL Differential, Automated Result Value Ref Range Neutrophils % 57.1 % Neutr Abs (ANC) 4.00 1.70 - 6.10 x10(3)/mcL Lymphocytes % 26.9 % Lymphocytes Abs 1.9 0.9 - 3.2 x10(3)/mcL Monocytes % 11.4 % Monocyte Abs 0.8 0.3 - 0.9 x10(3)/mcL Eosinophils % 4.1 % Eosinophils Abs 0.3 0.0 - 0.4 x10(3)/mcL Basophils % 0.4 % Basophils Abs 0.0 0.0 - 0.1 x10(3)/mcL Immature Gran % 0.10 % Shonda Gran Abs 0.01 0.00 - 0.04 x10(3)/mcL Microbiology: No new Radiology: No new Other Studies: No new Assessment: Loida Madrigal is a 53 y.o. female with a PMH of hx of mild nonobstructive mid LAD ASCVD on CCTA 09/2022, remote cardiac catheterization with normal coronaries 08/2019 with repeat LHC 04/2023 with nonobstructive CAD, PET 08/17/2023 showing septal, anterior wall scar with global reduction in MBFR (EKG portion showing diffuse ST-D), supraventricular tachycardia (AVNRT since 06/2021) s/p EPS and SVTablation on 04/01/[address] Tovar, paroxysmal A-fib (diagnosed on 10/20/2022), HFpEF, pulmonary emboli on Eliquis, restrictive lung disease secondary to obesity, MARYLOU on CPAP, SMA artery stenosis, s/pstenting, GERD, and esophageal dysphagia (following with GI), who presented to the ED at OSH with ch est pain, found to have elevated NSTEMI, transferred to [facility] for further management of NSTEMI. Patient found to have acute exacerbation of HFpEF, likely d/t microvascular dysfunction. Cardiology consulted, and patient undergoing IV diuresis. Plan: #Acute Decompensated HFpEF - still seems slightly overloaded - Start torsemide 80 tomorrow - continue home spironolactone - using NIV with naps and sleeping #NSTEMI, type I vs type II iso ADHF #Concern for microvascular dysfunction -Telemetry monitoring -started on heparin gtt as OSH per ACS protocol -Cardiology consulted -Continue ASA 81 mg daily s/p 324 mg at OSH -Plavix stopped -apixiban 5 mg po bid -amlodipine 2.5mg restarted -continue Atorvastatin 40mg PO daily -Continue ranolazine -BB as below #Bradycardia #Hypotension - patient noted to be bradycardic to HR 40s with MAPs 50s-60s at OSH. Briefly on dopamine, though weaned off prior to arrival - holding metoprolol - monitor on tele #GERD #Esophageal dysphagia -Continue home PPI #Restrictive lung disease secondary to obesity -Incentive spirometry #Paroxysmal A-fib #Remote PE #Supraventricular tachycardia (AVNRT since 06/2021) AC as above #Hx Migraines #Restless Legs - continue home topiramate - continue home ropinarole - continue home duloxetine - continue home neurontin Diet: Daily Healthy Menu Choices/Cardiac diet ([facility]-Diet) DVT Prophlaxis: DOAC Code status: Attempt Cardiopulmonary Resuscitation - Inpatient Lorna Herr MD 09/01/2023 * Calista Hernandez RT - 09/01/2023 4:45 AM EDT Respiratory Therapy NIV Note NIV Settings: NIV Mode: S/T IPAP (cmH20): 22 EPAP (cmH20): 16 Pressure Support (cm H2O): 6 FiO2 (%): 21 % NIV Measurements: Resp: 18 SpO2: 99 % Skin Assessment: NIV Skin Assessment WDL: WDL Mepilex Applied: No Assessment: Patient placed on noc NIV noted above to rest overnight. Plan: Continue to support patient. RT Jonathon * Eufemia Copeland MD - 08/31/2023 7:25 AM EDT [facility] - [facility] DAILY PROGRESS NOTE Page [phone] to reach a provider 28/09 Admit Date: 08/28/2023 Encounter Date August 31, 2023 Anticipated Discharge Date: 08/31/2023 Hospital Day: 3 Active Hospital Problems Diagnosis NSTEMI (non-ST elevated myocardial infarction) Resolved Hospital Problems No resolved problems to display. 24 Hour Events/Subjective: Reports still feeling swelling of hands and unable to get rings off. Abd continues to feel mildly bloated. Net -829 yesterday with IV lasix 80 BID. Medications: Scheduled Meds: amLODIPine 2.5 mg Oral Daily apixaban 5 mg Oral BID gabapentin 600 mg Oral Nightly atorvastatin 40 mg Oral QPM DULoxetine DR 60 mg Oral Daily pantoprazole EC 40 mg Oral Daily ranolazine ER 1,000 mg Oral BID rOPINIRole 2 mg Oral BID spironolactone 25 mg Oral Daily topiramate 100 mg Oral Nightly sodium chloride 0.9 % (flush) 5 mL Intravenous BID aspirin 81 mg Oral Daily Continuous Infusions: PRN Meds:.polyethylene glycoL (MIRALAX) oral powder, ipratropium-albuteroL, nitroGLYcerin, sodium chloride 0.9 % (flush), lidocaine, melatonin Objective: Last value Range last 24 hrs Temp: 36.2 ??C (97.1 ??F) Temp: [35.8 ??C (96.4 ??F)-36.9 ??C (98.4 ??F)] Heart Rate: 51 Heart Rate from SpO2: 55 bpm Heart Rate: [47-75] BP: 96/54 BP: (94-128)/(51-67) Resp: 18 Resp: [14-20] SpO2: 100 % SpO2: [97 %-100 %] Height: 162.6 cm (5' 4) Weight: 100.8 kg (222 lb 3.2 oz) BMI (Calculated): 38.48 BMI Classification: Obese Admit weight: 101.7 kg Patient Vitals for the past 168 hrs: Weight 08/30/23 0507 100.8 kg (222 lb 3.2 oz) 08/29/23 0600 101.7 kg (224 lb 3.3 oz) 08/28/232033 101.7 kg (224 lb 3.3 oz) Intake/Output Summary (Last 24 hours) at 08/31/2023 0725 Last data filed at 08/31/2023 0325 Gross per 24 hour Intake 2271 ml Output 3100 ml Net -829 ml Physical Exam: Physical Exam HENT: Head: Normocephalic. Mouth/Throat: Mouth: Mucous membranes are moist. Eyes: Extraocular Movements: Extraocular movements intact. Cardiovascular: Rate and Rhythm: Normal rate and regular rhythm. Pulmonary: Effort: Pulmonary effort is normal. No respiratory distress. Abdominal: General: There is no distension. Palpations: Abdomen is soft. Musculoskeletal: Cervical back: Neck supple. No rigidity. Right lower leg: Edema present. Left lower leg: Edema present. Comments: improved Skin: General: Skin is warm. Neurological: Mental Status: She is alert. Labs: Recent Labs 08/31/23 0218 08/30/23 0309 08/29/23 0401 08/28/232106 WBC 7.8 7.8 8.0 6.8 HGB 12.6 10.5* 12.6 14.1 HCT 38.5 31.8* 37.6 42.2 PLATELET 218 176 197 234 MCV 97.0* 95.2* 96.2* 96.1* Recent Labs 08/31/23 0218 08/30/23 0309 08/29/23 [id number]/[id number]/25/23 1128 NA 137 145 141 140 140 CL 100 114* 107 105 99 CO2 25 19* 22 21* 29 K 3.8 3.7 3.5 3.5 3.6 MAGNESIUM 0.96 0.74 -- 1.05 -- CALCIUM 9.6 7.1* 8.8 9.3 10.0 BUN 18 16 24* 22* 29* CREATININE 1.37* 1.03 1.18 1.13 1.41* Coags No results for input(s): INR, PT, PTT, DDIMER in the last 168 hours. Cardiac Markers Recent Labs 08/29/23 0031 08/28/232106 TROPONINTHS 31* 31* PROBNP -- 2,854* Endocrine Recent Labs 06/15/23 0428 04/18/23 0210 04/17/23 0333 02/08/23 2208 TSH 2.98 -- 5.93* 4.00 HA1C -- 5.6 -- -- Recent Labs 08/28/232106 CHLPL 203 TRIG 146 HDL 52 LDLCHOL 122 Recent Labs 08/31/23 0218 08/30/23 0309 08/29/23 0401 GLUCOSE 114 99 106 Telemetry: I have personally reviewed and interpreted the telemetry from the last 24 hours. Resultsshow sinus, HR 50s-80s. Imaging: No results found for this visit on 08/28/23 (from the past 24 hour(s)). Assessment: Loida Madrigal is a 53 y.o. female with a PMH of hx of mild nonobstructive mid LAD ASCVD on CCTA 09/2022, remote cardiac catheterization with normal coronaries 08/2019 with repeat LHC 04/2023 with nonobstructive CAD, PET 08/17/2023 showing septal, anterior wall scar with global reduction in MBFR (EKG portion showing diffuse ST-D), supraventricular tachycardia (AVNRT since 06/2021) s/p EPS and SVTablation on 04/01/[address] Tovar, paroxysmal A-fib (diagnosed on 10/20/2022), HFpEF, pulmonary emboli on Eliquis, restrictive lung disease secondary to obesity, MARYLOU on CPAP, SMA artery stenosis, s/pstenting, GERD, and esophageal dysphagia (following with GI), who presented to the ED at OSH with ch est pain, found to have elevated NSTEMI, transferred to [facility] for further management of NSTEMI. Patient found to have acute exacerbation of HFpEF, likely d/t microvascular dysfunction. Cardiology consulted, and patient undergoing IV diuresis. Plan: #Acute Decompensated HFpEF - mildly hypervolemic on exam, pro-BNP elevated from prior - HOLD home torsemide 100 daily - spot dose IV lasix 80. Plan to transition to PO torsemide 80 tomorrow - continue home spironolactone #NSTEMI, type I vs type II iso ADHF #Concern for microvascular dysfunction -Telemetry monitoring -started on heparin gtt as OSH per ACS protocol -Cardiology consulted -Continue ASA 81 mg daily s/p 324 mg at OSH -Can dc Plavix 75 mg (s/p 300 mg at OSH) -switch heparin gtt back to DOAC 08/29 -reintroduce amlodipine 2.5mg daily as tolerated -continue Atorvastatin 40mg PO daily -Continue home atorvastatin and ranolazine -BB as below #Bradycardia #Hypotension - patient noted to be bradycardic to HR 40s with MAPs 50s-60s at OSH. Briefly on dopamine, though weaned off prior to arrival - HOLD metoprolol - monitor on tele #GERD #Esophageal dysphagia -Continue home PPI #Restrictive lung disease secondary to obesity -Incentive spirometry #Paroxysmal A-fib #Remote PE #Supraventricular tachycardia (AVNRT since 06/2021) AC as above #Hx Migraines #Restless Legs - continue home topiramate - continue home ropinarole - continue home duloxetine Diet: Daily Healthy Menu Choices/Cardiac diet ([facility]-Diet) DVT Prophlaxis: DOAC Code status: Attempt Cardiopulmonary Resuscitation - Inpatient Disposition: Discharge Planning: AM-PAC Basic Mobility Raw Score: 19 PT: OT: PCP JOCY Franco [phone] * Mary Castaneda RCP - 08/31/2023 5:18 AM EDT Respiratory Therapy NIV Note NIV Settings: NIV Mode: S/T IPAP (cmH20): 22 EPAP (cmH20): 16 Pressure Support (cm H2O): 6 FiO2 (%): 21 % NIV Measurements: Resp: 16 SpO2: 99 % Assessment: Patient compliant with our nocturnal BIPAP on her home settings 21% confirmed by the patient. Mary Castaneda RCP * Eufemia Copeland MD - 08/30/2023 9:11 PM EDT [facility]PITAL[facility] - [facility] DAILY PROGRESS NOTE Page [phone] to reach a provider 28/09 Admit Date: 08/28/2023 Encounter Date August 30, 2023 Anticipated Discharge Date: 08/31/2023 Hospital Day: 2 Active Hospital Problems Diagnosis NSTEMI (non-ST elevated myocardial infarction) Resolved Hospital Problems No resolved problems to display. 24 Hour Events/Subjective: - reports still having LE edema and upper extremity edema Medications: Scheduled Meds: amLODIPine 2.5 mg Oral Daily apixaban 5 mg Oral BID gabapentin 600 mg Oral Nightly atorvastatin 40 mg Oral QPM DUL[address] 60 mg Oral Daily pantoprazole EC 40 mg Oral Daily ranolazine ER 1,000 mg Oral BID rOPINIRole 2 mg Oral BID spironolactone 25 mg Oral Daily topiramate 100 mg Oral Nightly sodium chloride 0.9 % (flush) 5 mL Intravenous BID aspirin 81 mg Oral Daily Continuous Infusions: PRN Meds:.polyethylene glycoL (MIRALAX) oral powder, ipratropium-albuteroL, nitroGLYcerin, sodium chloride 0.9 % (flush), lidocaine, melatonin Objective: Last value Range last 24 hrs Temp: 36.7 ??C (98 ??F) Temp: [35.8 ??C (96.4 ??F)-36.9 ??C (98.4 ??F)] Heart Rate: 58 Heart Rate from SpO2: 55 bpm Heart Rate: [52-88] BP: 103/58 BP: (99-128)/(49-58) Resp: 16 Resp: [14-17] SpO2: 97 % SpO2: [93 %-99 %] Height: 162.6 cm (5' 4) Weight: 100.8 kg (222 lb 3.2 oz) BMI (Calculated): 38.48 BMI Classification: Obese Admit weight: 101.7 kg Patient Vitals for the past 168 hrs: Weight 08/30/23 0507 100.8 kg (222 lb 3.2 oz) 08/29/23 0600 101.7 kg (224 lb 3.3 oz) 08/28/23 2034 101.7 kg (224 lb 3.3 oz) Intake/Output Summary (Last 24 hours) at 08/30/2023 2111 Last data filed at 08/30/2023 1700 Gross per 24 hour Intake 1671 ml Output 2700 ml Net -1029 ml Physical Exam: Physical Exam HENT: Head: Normocephalic. Mouth/Throat: Mouth: Mucous membranes are moist. Eyes: Extraocular Movements: Extraocular movements intact. Cardiovascular: Rate and Rhythm: Normal rate and regular rhythm. Pulmonary: Effort: Pulmonary effort is normal. No respiratory distress. Abdominal: General: There is no distension. Palpations: Abdomen is soft. Musculoskeletal: Cervical back: Neck supple. No rigidity. Right lower leg: Edema present. Left lower leg: Edema present. Skin: General: Skin is warm. Neurological: Mental Status: She is alert. Labs: Recent Labs 08/30/23 0309 08/29/23 0401 08/28/232106 WBC 7.8 8.0 6.8 HGB 10.5* 12.6 14.1 HCT 31.8* 37.6 42.2 PLATELET 176 197 234 MCV 95.2* 96.2* 96.1* Recent Labs 08/30/23 0309 08/29/23 0401 08/28/23 21008/25/23 1128 NA 145 141 140 140 CL 114* 107 105 99 CO2 * 22 21* 29 K 3.7 3.5 3.5 3.6 MAGNESIUM 0.74 -- 1.05 -- CALCIUM 7.1* 8.8 9.3 10.0 BUN 16 24* 22* 29* CREATININE 1.03 1.18 1.13 1.41* Coags No results for input(s): INR, PT, PTT, DDIMER in the last 168 hours. Cardiac Markers Recent Labs 08/29/23 0031 08/28/232106 TROPONINTHS 31* 31* PROBNP -- 2,854* Endocrine Recent Labs 06/15/23 0428 04/18/23 0210 04/17/23 0333 02/08/23 2208 TSH 2.98 -- 5.93* 4.00 HA1C -- 5.6 -- -- Recent Labs 08/28/232106 CHLPL 203 TRIG 146 HDL 52 LDLCHOL 122 Recent Labs 08/30/23 0309 08/29/23 0401 08/28/23 210 GLUCOSE 99 106 95 Telemetry: I have personally reviewed and interpreted the telemetry from the last 24 hours. Resultsshow sinus, HR 50s-80s. Imaging: No results found for this visit on 08/28/23 (from the past 24 hour(s)). Assessment: Loida Madrigal is a 53 y.o. female with a PMH of hx of mild nonobstructive mid LAD ASCVD on CCTA 09/2022, remote cardiac catheterization with normal coronaries 08/2019 with repeat LHC 04/2023 with nonobstructive CAD, PET 08/17/2023 showing septal, anterior wall scar with global reduction in MBFR (EKG portion showing diffuse ST-D), supraventricular tachycardia (AVNRT since 06/2021) s/p EPS and SVTablation on 04/01/[address] Tovar, paroxysmal A-fib (diagnosed on 10/20/2022), HFpEF, pulmonary emboli on Eliquis, restrictive lung disease secondary to obesity, MARYLOU on CPAP, SMA artery stenosis, s/pstenting, GERD, and esophageal dysphagia (following with GI), who presented to the ED at OSH with ch est pain, found to have elevated NSTEMI, transferred to [facility] for further management of NSTEMI Plan: #Acute Decompensated HFpEF - mildly hypervolemic on exam, pro-BNP elevated from prior - HOLD home torsemide 100 daily - spot dose IV lasix 80 - continue home spironolactone #NSTEMI, type I vs type II iso ADHF #Concern for microvascular dysfunction -Telemetry monitoring -started on heparin gtt as OSH per ACS protocol -Cardiology consulted -Continue ASA 81 mg daily s/p 324 mg at OSH -Can dc Plavix 75 mg (s/p 300 mg at OSH) -switch heparin gtt back to DOAC -reintroduce amlodipine 2.5mg daily as tolerated -continue Atorvastatin 40mg PO daily -Continue home atorvastatin and ranolazine -BB as below #Bradycardia #Hypotension - patient noted to be bradycardic to HR 40s with MAPs 50s-60s at OSH. Briefly on dopamine, though weaned off prior to arrival - HOLD metoprolol - monitor on tele #GERD #Esophageal dysphagia -Continue home PPI #Restrictive lung disease secondary to obesity -Incentive spirometry #Paroxysmal A-fib #Remote PE #Supraventricular tachycardia (AVNRT since 06/2021) AC as above #Hx Migraines #Restless Legs - continue home topiramate - continue home ropinarole - continue home duloxetine Diet: Daily Healthy Menu Choices/Cardiac diet ([facility]-Diet) DVT Prophlaxis: DOAC Code status: Attempt Cardiopulmonary Resuscitation - Inpatient Disposition: Discharge Planning: AM-PAC Basic Mobility Raw Score: 19 PT: OT: PCP JOCY Franco [phone] * Neli Alcantar RN - 08/29/2023 3:25 PM EDT 1450- Patient experiencing increased chest/back pain, 09/14. A set of vitals were taken. 2L NC applied. 1457- Notified Eufemia Copeland MD of patients chest pain. Nitroglycerin held off for now due topatients low BP and symptom of TAM when she takes Nitroglycerin. EKG done. New orders placed. * Eufemia Copeland MD - 08/29/2023 7:07 AM EDT [facility]PITALIST 1 - [facility] DAILY PROGRESS NOTE Page [phone] to reach a provider 28/09 Admit Date: 08/28/2023 Encounter Date August 29, 2023 Anticipated Discharge Date: 08/31/2023 Hospital Day: 1 Active Hospital Problems Diagnosis NSTEMI (non-ST elevated myocardial infarction) Resolved Hospital Problems No resolved problems to display. 24 Hour Events/Subjective: - admitted overnight - reports CP present, lewis worse when laying down. Exertion also worsens pain. Medications: Scheduled Meds: clopidogreL 75 mg Oral Daily senna-docusate 2 tablet Oral Daily atorvastatin 40 mg Oral QPM DULoxetine DR 60 mg Oral Daily pantoprazole EC 40 mg Oral Daily ranolazine ER 1,000 mg Oral BID rOPINIRole 2 mg Oral BID spironolactone 25 mg Oral Daily topiramate 100 mg Oral Nightly sodium chloride 0.9 % (flush) 5 mL Intravenous BID aspirin 81 mg Oral Daily Continuous Infusions: heparin (porcine) infusion 400 Units/hr (08/29/23 1307) PRN Meds:.ipratropium-albuteroL, polyethylene glycoL (MIRALAX) oral powder, nitroGLYcerin, sodium chloride 0.9 % (flush), lidocaine, melatonin, heparin (porcine) infusion AND heparin (porcine) Objective: Last value Range last 24 hrs Temp: 36.9 ??C (98.4 ??F) Temp: [36.5 ??C (97.7 ??F)-36.9 ??C (98.4 ??F)] Heart Rate: 53 Heart Rate from SpO2: 55 bpm Heart Rate: [52-62] BP: 98/62 BP: (93-115)/(53-74) Resp: 16 Resp: [14-18] SpO2: 99 % SpO2: [97 %-100 %] Height: 162.6 cm (5' 4) Weight: 101.7 kg (224 lb 3.3 oz) BMI (Calculated): 38.48 BMI Classification: Obese Admit weight: 101.7 kg Patient Vitals for the past 168 hrs: Weight 08/29/23 0600 101.7 kg (224 lb 3.3 oz) 08/28/232033 101.7 kg (224 lb 3.3 oz) Intake/Output Summary (Last 24 hours) at 08/29/2023 1712 Last data filed at 08/29/2023 1600 Gross per 24 hour Intake 920.27 ml Output 2785 ml Net -1864.73 ml Physical Exam: Physical Exam HENT: Head: Normocephalic. Mouth/Throat: Mouth: Mucous membranes are moist. Eyes: Extraocular Movements: Extraocular movements intact. Cardiovascular: Rate and Rhythm: Normal rate and regular rhythm. Pulmonary: Effort: Pulmonary effort is normal. No respiratory distress. Abdominal: General: There is no distension. Palpations: Abdomen is soft. Musculoskeletal: Cervical back: Neck supple. No rigidity. Right lower leg: Edema present. Left lower leg: Edema present. Skin: General: Skin is warm. Neurological: Mental Status: She is alert. Labs: Recent Labs 08/29/23 04008/28/232106 WBC 8.0 6.8 HGB 12.6 14.1 HCT 37.6 42.2 PLATELET 197 234 MCV 96.2* 96.1* Recent Labs 08/29/23 0401 08/28/237 08/25/23 1128 NA 141 140 140 CL 107 105 99 CO2 22 21* 29 K 3.5 3.5 3.6 MAGNESIUM -- 1.05 -- CALCIUM 8.8 9.3 10.0 BUN 24* 22* 29* CREATININE 1.18 1.13 1.41* Coags No results for input(s): INR, PT, PTT, DDIMER in the last 168 hours. Cardiac Markers Recent Labs 08/29/23 0031 08/28/232106 TROPONINTHS 31* 31* PROBNP -- 2,854* Endocrine Recent Labs 06/15/23 0428 04/18/23 0210 04/17/23 0333 02/08/23 2208 TSH 2.98 -- 5.93* 4.00 HA1C -- 5.6 -- -- Recent Labs 08/28/23 2107 CHLPL 203 TRIG 146 HDL 52 LDLCHOL 122 Recent Labs 08/29/23 0401 08/28/23 2107 08/25/23 1128 GLUCOSE 106 95 111 Telemetry: I have personally reviewed and interpreted the telemetry from the last 24 hours. Resultsshow sinus, HR 50s-80s. Imaging: No results found for this visit on 08/28/23 (from the past 24 hour(s)). Assessment: Loida Madrigal is a 53 y.o. female with a PMH of hx of mild nonobstructive mid LAD ASCVD on CCTA 09/2022, remote cardiac catheterization with normal coronaries 08/2019 with repeat LHC 04/2023 with nonobstructive CAD, PET 08/17/2023 showing septal, anterior wall scar with global reduction in MBFR (EKG portion showing diffuse ST-D), supraventricular tachycardia (AVNRT since 06/2021) s/p EPS and SVTablation on 04/01/[address] Tovar, paroxysmal A-fib (diagnosed on 10/20/2022), HFpEF, pulmonary emboli on Eliquis, restrictive lung disease secondary to obesity, MARYLOU on CPAP, SMA artery stenosis, s/pstenting, GERD, and esophageal dysphagia (following with GI), who presented to the ED at OSH with ch est pain, found to have elevated NSTEMI, transferred to [facility] for further management of NSTEMI Plan: #Acute Decompensated HFpEF - mildly hypervolemic on exam, pro-BNP elevated from prior - HOLD home torsemide 100 daily - IV lasix 80 x1 given. Will assess response and re-dose PRN - continue home spironolactone #NSTEMI, type I vs type II iso ADHF #Concern for microvascular dysfunction -Telemetry monitoring -Continue heparin gtt per ACS protocol -Continue ASA 81 mg daily s/p 324 mg at OSH -Continue Plavix 75 mg s/p 300 mg at OSH -continue Atorvastatin 40mg PO daily -Continue home atorvastatin and ranolazine -BB as below #Bradycardia #Hypotension - patient noted to be bradycardic to HR 40s with MAPs 50s-60s at OSH. Briefly on dopamine, though weaned off prior to arrival - HOLD metoprolol - monitor on tele #GERD #Esophageal dysphagia -Continue home PPI #Restrictive lung disease secondary to obesity -Incentive spirometry #Paroxysmal A-fib #Remote PE #Supraventricular tachycardia (AVNRT since 06/2021) On heparin gtt. (On eliquis at home) #Hx Migraines #Restless Legs - continue home topiramate - continue home ropinarole - continue home duloxetine Diet: Daily Healthy Menu Choices/Cardiac diet ([facility]-Diet) DVT Prophlaxis: heparin gtt Code status: Attempt Cardiopulmonary Resuscitation - Inpatient Disposition: Discharge Planning: AM-PAC Basic Mobility Raw Score: 19 PT: OT: PCP JOCY Franco [phone] documented in this encounter H&P Notes * Archie Mcmanus MD - 08/28/2023 10:35 PM EDT Inpatient Hospital Medicine - Admission Note Problem List: Active Hospital Problems Diagnosis NSTEMI (non-ST elevated myocardial infarction) Resolved Hospital Problems No resolved problems to display. Active Non-Hospital Problems Diagnosis Endometriosis Stenosis of left carotid artery greater than 50% Restrictive lung disease secondary to obesity Paresthesia of hand, bilateral Paroxysmal atrial fibrillation SVT (supraventricular tachycardia) Chest pain Obesity Dyslipidemia Obstructive sleep apnea syndrome Insomnia (HFpEF) heart failure with preserved ejection fraction Restless legs Asthma History of Present Illness: Loida Madrigal is a 53 y.o. female with a PMH of hx of mild nonobstructive mid LAD ASCVD on CCTA 09/2022, remote cardiac catheterization with normal coronaries 08/2019 with repeat LHC 04/2023 with nonobstructive CAD, PET 08/17/2023 showing septal, anterior wall scar with global reduction in MBFR (EKG portion showing diffuse ST-D), supraventricular tachycardia (AVNRT since 06/2021) s/p EPS and SVTablation on 04/01/[address] Tovar, paroxysmal A-fib (diagnosed on 10/20/2022), HFpEF, pulmonary emboli on Eliquis, restrictive lung disease secondary to obesity, MARYLOU on CPAP, SMA artery stenosis, s/pstenting, GERD, and esophageal dysphagia (following with GI), who presented to the ED at OSH with ch est pain. The patient reports a few days of intermittent substernal chest pain radiating to the neck, along with a history of similar episodes. She also experiences shortness of breath on exertion and has noted weight gain. She denies experiencing fevers, chills, nausea, vomiting, urinary changes, or episodes of near-fainting or fainting. At OSH, vital signs were notable for bradycardia to 57, and hypotension 88/46. Lab tests tests werenotable for elevated troponin at 698 >>699>> 698 (reference less than 60), proBNP> 3000. EKG did not suggest an acute ischemic changes. Case discussed with cardiology, and recommended treatment for possible ACS, and transfer to [facility] for further management. Prior to transfer, patient was loaded with aspirin 324 mg, Plavix 300 mg, and started on heparin drip per ACS protocol. Review of Systems: Negative except as noted above Past Medical and Surgical History: Past Medical History: Diagnosis Date Asthma Atrial fibrillation Bilateral carpal tunnel syndrome 03/18/2023 Bilateral renal artery stenosis 03/18/2023 Depression Endometriosis S/p hysterectomy GERD (gastroesophageal reflux disease) 03/18/2023 Heart failure Hx of supraventricular tachycardia 03/18/2023 Infiltrate of lower lobe of left lung present on imaging study 03/18/2023 Insomnia Left facial numbness 03/18/2023 Left lateral epicondylitis 03/18/2023 Left wrist pain 03/18/2023 Migraine Obesity (BMI 30-39.9) MARYLOU on CPAP Seasonal allergies Past Surgical History: Procedure Laterality Date HYSTERECTOMY PRO COLONOSCOPY, BIOPSY N/A 07/07/2023 COLONOSCOPY FLEXIBLE, WITH BX (WRVU 3.56) performed by Lashonda Villa MD at [facility] ENDOSCOPY PRO UPPER GI ENDOSCOPY, BIOPSY N/A 07/07/2023 EGD WITH BIOPSY (WRVU 2.39) performed by Lashonda Villa MD at [facility] ENDOSCOPY VS ARTERIOGRAM MESENTERIC VASCULAR SURGERY 07/02/2023 VS Arteriogram Mesenteric Vascular Surgery 07/02/[address] MD [facility] INTERVENTIONL RAD Prior To Admission Medications: Medications Prior to Admission Medication Sig Dispense Refill Last Dose omeprazole (PriLOSEC) [address] capsule Take 1 capsule by mouth daily. 30 capsule 5 metoprolol succinate XL (Toprol-XL) 25 mg ER 24 hr tablet Take 0.5 tablets by mouth daily. 45 tablet 3 ranolazine ER (Ranexa) 1,000 mg ER 12 hr tablet Take 1 tablet by mouth 2 times daily. 180 tablet 3 torsemide (Demadex) 20 mg tablet Take 2 tablets by mouth 2 times daily. 180 tablet 0 atorvastatin (Lipitor) 40 mg tablet Take 1 tablet by mouth every evening. 90 tablet 3 metOLazone (Zaroxolyn) 2.5 mg tablet Take 1 tablet by mouth as needed (take daily for weight gain +increasing shortness of breath. take 30-60 minutes prior to a dose of torsemide). 30 tablet 0 rimegepant (Nurtec ODT) 75 mg disintegrating tablet Take 75 mg by mouth daily as needed. nitroGLYcerin (Nitrostat) 0.[address] 1 tablet under the tongue every 5 minutes as needed for Chest pain. 90 tablet 12 amLODIPine (Norvasc) 2.5 mg tablet Take 1 tablet by mouth daily. 90 tablet 3 apixaban (Eliquis) 5 mg tablet Take 1 tablet by mouth 2 times daily. 60 tablet 11 spironolactone (Aldactone) 25 mg tablet Take 1 tablet by mouth daily. 90 tablet 3 melatonin 10 mg capsule Take 10 mg by mouth nightly as needed. empagliflozin (Jardiance) 10 mg Tablet Take 1 tablet by mouth daily. 90 tablet 1 rOPINIRole (Requip) 1 mg Tablet Take 2 mg by mouth 2 times daily. loratadine (Claritin) 10 mg Tablet Take 10 mg by mouth daily as needed. fluticasone propionate (FLONASE) 50 mcg/actuation [place], Suspension 1 spray by Each Nare route as needed. gabapentin (Neurontin) 300 mg Capsule Take 600 mg by mouth nightly. topiramate (TOPAMAX) 50 mg Tablet Take 100 mg by mouth nightly. DULoxetine (CYMBALTA) 60 mg capsule Take 60 mg by mouth daily. albuterol (PROVENTIL HFA;VENTOLIN HFA) 90 mcg/Actuation inhaler Inhale 2 puffs into the lungs every4 hours as needed. Use with spacer Allergies: Allergies Allergen Reactions Codeine Other (See Comments) Per pt it causes severe jittery and uncomfortable feeling Acetaminophen Other (See Comments) Makes her jittery, feel weird and cause swelling in upper/lower extremities Clobetasol Rash Other reaction(s): Skin Rash Family History: Family History Problem Relation Age of Onset Hypertension Mother Arrhythmia Father Heart Surgery Father Myocardial Infarction Father Coronary Artery Disease Father Stomach Cancer Other Social History and Habits: Social History Socioeconomic History Marital status: Spouse name: Not on file Number of children: Not on file Years of education: Not on file Highest education level: Not on file Occupational History Not on file Tobacco Use Smoking status: Never Smokeless tobacco: Never Vaping Use Vaping status: Never Used Substance and Sexual Activity Alcohol use: Never Drug use: Never Sexual activity: Yes Other Topics Concern Not on file 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 History 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 , 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 Lives in [facility] Social Determinants of Health Financial Resource Strain: Not on file Food Insecurity: Food Insecurity Present (06/15/2023) Hunger Vital Sign Worried About Running Out of Food in the Last Year: Sometimes true Ran Out of Food in the Last Year: Sometimes true Transportation Needs: Unmet Transportation Needs (06/15/2023) PRAPARE - Transportation Lack of Transportation (Medical): Yes Lack of Transportation (Non-Medical): Yes Physical Activity: Not on file Intimate Partner Violence: Not At Risk (08/28/2023) DH IPV Inpatient Questions Prevent Contact with Others: no Feels Threatened by Someone: no Feels Unsafe at Home: no Physical Signs of Abuse Present: no Housing Stability: High Risk (06/15/2023) Housing Stability Vital Sign Unable to Pay for Housing in the Last Year: Yes Number of Places Lived in the Last Year: 1 Unstable Housing in the Last Year: No Immunizations: Immunization History Administered Date(s) Administered Moderna Covid-19 Monovalent 12Yr+ (Construction Engineering Manager 100mcg) 03/06/2020, 04/03/2020 Physical Exam: Last Set of Vitals and range of vitals over past 24 hours: Last value Range last 24 hrs Temperature Temp: 36.8 ??C (98.2 ??F) Temp: [36.5 ??C (97.7 ??F)-36.8 ??C (98.2 ??F)] Heart Rate Heart Rate: 56 Heart Rate: [52-61] Blood Pressure BP: 103/57 BP: (94-106)/(57-74) Respiratory Rate Resp: 14 Resp: [14-18] SpO2 SpO2: 98 % SpO2: [98 %-100 %] Body mass index is 38.49 kg/m??. Physical Exam Constitutional: General: She is not in acute distress. Appearance: She is obese. HENT: Head: Normocephalic and atraumatic. Mouth/Throat: Pharynx: Oropharynx is clear. Eyes: Extraocular Movements: Extraocular movements intact. Pupils: Pupils are equal, round, and reactive to light. Cardiovascular: Rate and Rhythm: Normal rate and regular rhythm. Pulmonary: Effort: No respiratory distress. Breath sounds: No wheezing. Abdominal: General: There is no distension. Tenderness: There is no abdominal tenderness. Musculoskeletal: Cervical back: No rigidity or tenderness. Right lower leg: No edema. Left lower leg: No edema. Skin: Coloration: Skin is not jaundiced. Findings: No bruising. Neurological: General: No focal deficit present. Cranial Nerves: No cranial nerve deficit. Motor: No weakness. Psychiatric: Mood and Affect: Mood normal. Laboratory (Last 24 Hours): Recent Results (from the past 24 hour(s)) Magnesium Result Value Ref Range Magnesium 1.05 0.69 - 1.07 mmol/L Basic Metabolic Panel (non-fasting) Result Value Ref Range Glucose Lvl 95 65 - 199 mg/dL BUN 22 (H) 8 - 18 mg/dL Creatinine 1.13 0.70 - 1.20 mg/dL Sodium 140 135 - 145 mmol/L Potassium 3.5 3.5 - 5.0 mmol/L Chloride 105 98 - 107 mmol/L CO2 21 (L) 22 - 31 mmol/L Anion Gap 14 5 - 15 mmol/L Calcium 9.3 8.5 - 10.5 mg/dL Estimated GFR 58 (L) >=60 mL/min/1.73 m?? Hepatic Function Panel Result Value Ref Range Total Protein 6.6 6.1 - 8.0 g/dL Albumin 4.2 3.2 - 5.2 g/dL AST 32 (H) 0 - 30 unit/L ALT 28 0 - 30 unit/L Alk Phos 52 35 - 105 unit/L Total Bilirubin 0.6 0.2 - 1.3 mg/dL Bili, Direct 0.2 0.0 - 0.3 mg/dL Troponin Result Value Ref Range Troponin-T HS 31 (H) <=14 ng/L pro-Brain Natriuretic Peptide Result Value Ref Range ProBNP 2,854 (H) <=124 pg/mL Lipid Panel (Reflex Direct LDL) Result Value Ref Range Chol, Total 203 mg/dL Triglycerides 146 mg/dL HDL 52 mg/dL LDL Cholesterol 122 mg/dL Lipid Interpretation See Note Heparin (unfractionated) Level Result Value Ref Range Heparin UFH Level 1.90 (CRIT) IU/mL Hemogram Result Value Ref Range WBC 6.8 4.0 - 9.5 x10(3)/mcL RBC 4.39 4.00 - 5.21 x10(6)/mcL Hemoglobin 14.1 11.7 - 15.5 g/dL Hematocrit 42.2 35.7 - 45.8 % MCV 96.1 (H) 82.6 - 94.4 fL MCH 32.1 (H) 27.1 - 32.0 pg MCHC 33.4 31.7 - 35.0 g/dL Platelets 234 145 - 357 x10(3)/mcL RDWSD 47.3 (H) 37.0 - 46.0 fL RDWCV 13.3 11.5 - 14.1 % MPV 10.3 7.6 - 12.9 fL nRBC % Auto 0.0 % nRBC Abs Auto 0.000 0.000 - 0.000 x10(3)/mcL Differential, Automated Result Value Ref Range Neutrophils % 59.8 % Neutr Abs (ANC) 4.06 1.70 - 6.10 x10(3)/mcL Lymphocytes % 28.8 % Lymphocytes Abs 2.0 0.9 - 3.2 x10(3)/mcL Monocytes % 5.7 % Monocyte Abs 0.4 0.3 - 0.9 x10(3)/mcL Eosinophils % 4.6 % Eosinophils Abs 0.3 0.0 - 0.4 x10(3)/mcL Basophils % 0.7 % Basophils Abs 0.0 0.0 - 0.1 x10(3)/mcL Immature Gran % 0.40 % Shonda Gran Abs 0.03 0.00 - 0.04 x10(3)/mcL Troponin Result Value Ref Range Troponin-T HS 31 (H) <=14 ng/L Basic Metabolic Panel (non-fasting) Result Value Ref Range Glucose Lvl 106 65 - 199 mg/dL BUN 24 (H) 8 - 18 mg/dL Creatinine 1.18 0.70 - 1.20 mg/dL Sodium 141 135 - 145 mmol/L Potassium 3.5 3.5 - 5.0 mmol/L Chloride 107 98 - 107 mmol/L CO2 22 22 - 31 mmol/L Anion Gap 12 5 - 15 mmol/L Calcium 8.8 8.5 - 10.5 mg/dL Estimated GFR 55 (L) >=60 mL/min/1.73 m?? Heparin (unfractionated) Level Result Value Ref Range Heparin UFH Level 1.04 (CRIT) IU/mL Hemogram Result Value Ref Range WBC 8.0 4.0 - 9.5 x10(3)/mcL RBC 3.91 (L) 4.00 - 5.21 x10(6)/mcL Hemoglobin 12.6 11.7 - 15.5 g/dL Hematocrit 37.6 35.7 - 45.8 % MCV 96.2 (H) 82.6 - 94.4 fL MCH 32.2 (H) 27.1 - 32.0 pg MCHC 33.5 31.7 - 35.0 g/dL Platelets 197 145 - 357 x10(3)/mcL RDWSD 46.7 (H) 37.0 - 46.0 fL RDWCV 13.3 11.5 - 14.1 % MPV 10.4 7.6 - 12.9 fL nRBC % Auto 0.0 % nRBC Abs Auto 0.000 0.000 - 0.000 x10(3)/mcL Differential, Automated Result Value Ref Range Neutrophils % 65.6 % Neutr Abs (ANC) 5.23 1.70 - 6.10 x10(3)/mcL Lymphocytes % 21.4 % Lymphocytes Abs 1.7 0.9 - 3.2 x10(3)/mcL Monocytes % 8.5 % Monocyte Abs 0.7 0.3 - 0.9 x10(3)/mcL Eosinophils % 4.0 % Eosinophils Abs 0.3 0.0 - 0.4 x10(3)/mcL Basophils % 0.4 % Basophils Abs 0.0 0.0 - 0.1 x10(3)/mcL Immature Gran % 0.10 % Shonda Gran Abs 0.01 0.00 - 0.04 x10(3)/mcL Green Tube HOLD Result Value Ref Range Green Hold Sample in lab. Assessment and plan: Loida Madrigal is a 53 y.o. female with a PMH of hx of mild nonobstructive mid LAD ASCVD on CCTA 09/2022, remote cardiac catheterization with normal coronaries 08/2019 with repeat LHC 04/2023 with nonobstructive CAD, PET 08/17/2023 showing septal, anterior wall scar with global reduction in MBFR (EKG portion showing diffuse ST-D), supraventricular tachycardia (AVNRT since 06/2021) s/p EPS and SVTablation on 04/01/[address] Tovar, paroxysmal A-fib (diagnosed on 10/20/2022), HFpEF, pulmonary emboli on Eliquis, restrictive lung disease secondary to obesity, MARYLOU on CPAP, SMA artery stenosis, s/pstenting, GERD, and esophageal dysphagia (following with GI), who presented to the ED at OSH with ch est pain, found to have elevated NSTEMI, transferred to [facility] for further management #NSTEMI, type I vs II #Concern for microvascular dysfunction -Telemetry monitoring -Continue heparin gtt per ACS protocol -Continue ASA 81 mg daily s/p 324 mg at OSH -Continue Plavix 75 mg s/p 300 mg at OSH -continue Atorvastatin 40mg PO daily -Continue home atorvastatin, metoprolol, and ranolazine #GERD #Esophageal dysphagia -Continue home PPI #HFpEF -Continue home torsemide and spironolactone #Restrictive lung disease secondary to obesity -Incentive spirometry #Paroxysmal A-fib #Remote PE #Supraventricular tachycardia (AVNRT since 06/2021) On heparin gtt. (On eliquis at home) Diet: NPO diet (Give Meds) DVT Prophylaxis: On heparin gtt. Code status: Attempt Cardiopulmonary Resuscitation - Inpatient A copy of this document will be sent to the patient's Primary Care Physician and/or Referring Physician. Archie Mcmanus MD 08/29/2023 documented in this encounter Miscellaneous Notes * Plan of Care - Tim Cardoza, RN - 09/10/2023 4:47 PM EDT Pt discharged to home. AVS reviewed with pt including; medications, follow up apts, and limitationsas well as answering any questions. Pt verbalized understanding. Problem: Adult Inpatient Plan of Care Goal: Plan of Care Review Outcome: Outcome (s) achieved Goal: Patient-Specific Goal (Individualized) Outcome: Outcome (s) achieved Goal: Absence of Hospital-Acquired Illness or Injury Outcome: Outcome (s) achieved Goal: Optimal Comfort and Wellbeing Outcome: Outcome (s) achieved Goal: Readiness for Transition of Care Outcome: Outcome (s) achieved Problem: Chest Pain Goal: Resolution of Chest Pain Symptoms Outcome: Outcome (s) achieved Problem: Pain Acute Goal: Acceptable Pain Control and Functional Ability Outcome: Outcome (s) achieved * Care Management Discharge - Jorge Veloz RN - 09/10/2023 3:04 PM EDT CARE MANAGEMENT FINAL DISCHARGE NOTE Chart reviewed, care reviewed with primary team and at interdisciplinary rounds. Patient is medically ready for discharge to home. Needs for Transition of Care: per discharge instructions Plan for discharge is: Home w/o Services Outpatient Agency/Support Group Needs: None Agency Referrals & Follow-up Care: per discharge instructions Transportation: family will provide transportation home Wheelchair van/Ambulance? No Functional status prior to admission: Independent Home Environment: Others in the home: spouse. Current Living Arrangements: home/apartment/condo. Accessibility Concerns:2 story home w/ 5 PANTERA and ramp; bedroom on second level. Current Functional Ability: Independent DME used at home: ramp, respiratory supplies, other (see comments) (BiPAP through [facility]) DME Needed at Discharge: N/A Patient is insured through: Primary Insurance: [employer] [place] Pay[place] [employer] [place] / Plan[place] / Product Type: *No Product type* / Secondary Insurance: N/A Prescription Coverage: Yes This plan was formulated with input from patient and team. All are in agreement with plan. * Plan of Care - Jo Ann Bello RN - 09/10/2023 6:28 AM EDT Problem: Adult Inpatient Plan of Care Goal: Plan of Care Review Outcome: Ongoing (Interventions Implemented as Appropriate) Goal: Patient-Specific Goal (Individualized) Outcome: Ongoing (Interventions Implemented as Appropriate) Goal: Absence of Hospital-Acquired Illness or Injury Outcome: Ongoing (Interventions Implemented as Appropriate) Goal: Optimal Comfort and Wellbeing Outcome: Ongoing (Interventions Implemented as Appropriate) Goal: Readiness for Transition of Care Outcome: Ongoing (Interventions Implemented as Appropriate) Problem: Chest Pain Goal: Resolution of Chest Pain Symptoms Outcome: Ongoing (Interventions Implemented as Appropriate) Problem: Pain Acute Goal: Acceptable Pain Control and Functional Ability Outcome: Ongoing (Interventions Implemented as Appropriate) * Plan of Care - Tim Cardoza RN - 09/09/2023 2:09 PM EDT OUTCOME EVALUATION NOTE: OUTCOME SUMMARY: A&Ox4, VSS (NSR/Rajiv MD aware), on RA. No complaints of CP or SOB. Pt reported 5/10 back pain,hot pack given. Ambulates to the bathroom and calls appropriately. Continuing to actively monitor. PLAN MOVING FORWARD: Q4 VS Discharge planning as appropriate INDIVIDUALIZED FALL PREVENTION INTERVENTIONS: Patient-specific fall risk factors per assessment: [current deficits]: unfamiliar environment, wires/cords/lines Assistance [level of assistance required for transfers and ambulation]: Independent Supervision [direct monitoring required during toileting and ADLs]: Independent Surveillance [continuous indirect monitoring]: Telemetry, pulse ox Patient-specific fall prevention interventions for sensory deficits provided, if applicable: Yes. Lighting adjusted, clutter free environment, non-slips on, call ghosh within reach and calls as appropriate. CPG GOAL OUTCOME EVALUATION: Ongoing Problem: Adult Inpatient Plan of Care Goal: Plan of Care Review Outcome: Ongoing (Interventions Implemented as Appropriate) Goal: Patient-Specific Goal (Individualized) Outcome: Ongoing (Interventions Implemented as Appropriate) Goal: Absence of Hospital-Acquired Illness or Injury Outcome: Ongoing (Interventions Implemented as Appropriate) Goal: Optimal Comfort and Wellbeing Outcome: Ongoing (Interventions Implemented as Appropriate) Goal: Readiness for Transition of Care Outcome: Ongoing (Interventions Implemented as Appropriate) Problem: Chest Pain Goal: Resolution of Chest Pain Symptoms Outcome: Ongoing (Interventions Implemented as Appropriate) Problem: Pain Acute Goal: Acceptable Pain Control and Functional Ability Outcome: Ongoing (Interventions Implemented as Appropriate) * Plan of Care - Jo Ann Bello RN - 09/09/2023 5:03 AM EDT Got some sleep. Woke with a little back pain. Declined heat pack. Ambulated around room. Problem: Adult Inpatient Plan of Care Goal: Plan of Care Review Outcome: Ongoing (Interventions Implemented as Appropriate) Goal: Patient-Specific Goal (Individualized) Outcome: Ongoing (Interventions Implemented as Appropriate) Goal: Absence of Hospital-Acquired Illness or Injury Outcome: Ongoing (Interventions Implemented as Appropriate) Goal: Optimal Comfort and Wellbeing Outcome: Ongoing (Interventions Implemented as Appropriate) Goal: Readiness for Transition of Care Outcome: Ongoing (Interventions Implemented as Appropriate) Problem: Chest Pain Goal: Resolution of Chest Pain Symptoms Outcome: Ongoing (Interventions Implemented as Appropriate) Problem: Pain Acute Goal: Acceptable Pain Control and Functional Ability Outcome: Ongoing (Interventions Implemented as Appropriate) * Plan of Care - Chayo Painting RN - 09/08/2023 5:42 PM EDT OUTCOME EVALUATION NOTE: OUTCOME SUMMARY: Pt denies CP and SOB. Pain from the night has subsided. Tingleness remains unchanged on left arm and leg, not any worse or less or has progressed elsewhere. Provider aware. Provider looking to refer to Heart Failure Team. Pt up ambulating in room and hallway. PLAN MOVING FORWARD: Heart Failure Team. INDIVIDUALIZED FALL PREVENTION INTERVENTIONS: Patient-specific fall risk factors per assessment: [current deficits]: generalized weakness Assistance [level of assistance required for transfers and ambulation]: independent Supervision [direct monitoring required during toileting and ADLs]: independent Surveillance [continuous indirect monitoring]: eyes only CARE PLAN GOAL OUTCOME EVALUATION: Problem: Adult Inpatient Plan of Care Goal: Plan of Care Review Outcome: Ongoing (Interventions Implemented as Appropriate) Goal: Patient-Specific Goal (Individualized) Outcome: Ongoing (Interventions Implemented as Appropriate) Goal: Absence of Hospital-Acquired Illness or Injury Outcome: Ongoing (Interventions Implemented as Appropriate) Goal: Optimal Comfort and Wellbeing Outcome: Ongoing (Interventions Implemented as Appropriate) Goal: Readiness for Transition of Care Outcome: Ongoing (Interventions Implemented as Appropriate) Problem: Chest Pain Goal: Resolution of Chest Pain Symptoms Outcome: Ongoing (Interventions Implemented as Appropriate) Problem: Pain Acute Goal: Acceptable Pain Control and Functional Ability Outcome: Ongoing (Interventions Implemented as Appropriate) * Consult Note - Anaya Hernandez LPN - 09/08/2023 2:40 PM EDT During VAS Purposeful Rounding, an assessment of your patient's venous access was performed fby theVascular Access Service. The following tasks were performed if needed and communicated to the bedside RN Choose all that apply: [x] PIV(s) checked for patency if daily need for flush needs to be performed [] CVAD was checked for patency if daily flush needs to be performed [x] IV tubing clamped or capped if needed [] Visual inspection of your patient's central line dressing integrity [x] Review of indications for vascular access [] A photo was taken of your patient's central line [x] Visual inspection of your patient's IV dressing integrity [] Other While rounding an intervention was needed and communicated to the bedside RN Choose all that apply: [] Nonocclusive IV dressing addressed [] Nonocclusive CVAD dressing (please identify type of line) [] Infusion site leaking [] IV not patent and removed [] IV not indicated [] IV placed [] IV restarted [] Implanted Port, PICC or ML dressing changed if needed (either PRN or weekly) [] Other * Plan of Care - Chayo Painting RN - 09/07/2023 6:18 PM EDT OUTCOME EVALUATION NOTE: OUTCOME SUMMARY: Pt denies CP or SOB. VSS. Pt bradycardic/NSR. Pt independent in room. Voiding clear yellow urine. Monitoring In/Out. Pt ambulating in room and in hallway. PLAN MOVING FORWARD: Ditahminae CARE PLAN GOAL OUTCOME EVALUATION: Problem: Adult Inpatient Plan of Care Goal: Plan of Care Review Outcome: Ongoing (Interventions Implemented as Appropriate) Goal: Patient-Specific Goal (Individualized) Outcome: Ongoing (Interventions Implemented as Appropriate) Goal: Absence of Hospital-Acquired Illness or Injury Outcome: Ongoing (Interventions Implemented as Appropriate) Goal: Optimal Comfort and Wellbeing Outcome: Ongoing (Interventions Implemented as Appropriate) Goal: Readiness for Transition of Care Outcome: Ongoing (Interventions Implemented as Appropriate) Problem: Chest Pain Goal: Resolution of Chest Pain Symptoms Outcome: Ongoing (Interventions Implemented as Appropriate) Problem: Pain Acute Goal: Acceptable Pain Control and Functional Ability Outcome: Ongoing (Interventions Implemented as Appropriate) * Consult Note - Ciro Lovell MD - 09/07/2023 2:31 PM EDT See my note from 08/27 and the many notes since then. I had a long discussion with Loida today regarding microvascular disease, the importance of risk factor mitigation and goals of therapy. As she has not responded much to the amlodipine (and she likely has disease rather than dysfunction given the PET), would stop this and switch to metoprolol tartrate 25 BID. This has been shown to be more beneficial for exertional symptoms. She also should be started on an sglt2i if she is not on one already. She has follow up with Dr. Kinsey and Dr. Mcdaniels within the next 1-2 months. Discharge recommendations - stop the amlodipine - start metoprolol tartrate 25 BID - start empagliflozin - ensure she has PRN nitro to go home with - would trial a long-acting nitrate as a next step outpatient (the sabas could be stopped if BP room needed) - ropinirole is associated with AF and chest pain - would consider stopping this - continue the spironolactone - continue the ranexa - I did discuss a GLP1, and she is willing to start this - would recommend initiating this as an outpatient - continue torsemide * Care Management - Jorge Veloz, RN - 09/07/2023 2:04 PM EDT OFFICE OF CARE MANAGEMENT PROGRESS NOTE LOS: Hospital Day 10 days Chart reviewed, care reviewed with primary team and at interdisciplinary rounds. Patient continues to meet inpatient level of care related to: NSTEMI Decision Maker: Self Functional status prior to admission: Independent Home Environment: Others in the home: spouse. Current Living Arrangements: home/apartment/condo. Accessibility Concerns: 2 story home w/ 5 [address] and ramp; bedroom on second level. Current Functional Ability: Independent DME used at home: ramp, respiratory supplies, other (see comments) (BiPAP through [facility]) DME Needed at Discharge: No Patient is insured through: Primary Insurance: [employer] [place] Pay[place] [employer] [place] / Plan[place] / Product Type: *No Product type* / Secondary Insurance: N/A Plan for discharge is: Home w/o Services Outpatient Agency/Support Group Needs: None Agency Referrals: pending hospital course, but none anticipated Transportation: family or friend will provide Barriers to discharge: Denies needs/concerns at this time Plan going forward: per the team, the pt continues to experience CP despite ongoing medication regimen titration. Pt has continued to express concerns regarding d/c home s/t her ongoing symptoms. Pt will be receiving Cardiac rehab at [facility] post discharge. D/c plan pending clinical course; anticipating d/c home with cardiac rehab when MR (potentially late today vs tomorrow). Care Management will continue to follow and assist with discharge planning and coordination of careas indicated. Anticipated Date of Discharge: 09/08/2023 * Consult Note - Anastasia Zaman RN - 09/06/2023 10:37 AM EDT Loida Madrigal was seen today by Cardiac Rehabilitation for: NSTEMI, HFpEF Educational packet regarding CAD, cardiac risk factors, and managing angina given to the patient. Reviewed managing angina /use of sl nitroglycerin. Mediterranean diet guidelines briefly reviewed. Given parameters for home exercise. Participation in an outpatient cardiac rehabilitation program at [facility] was discussed. Patient agrees to a referral to this program. She tells me she has participated in this program in the past, but was unable to complete it due to ongoing health concerns. She would like to try it again. The referral will be sent at discharge and the patient should be contacted by the Program within 1- 2 weeks from discharge. * Plan of Care - Aman Ayala RN - 09/06/2023 1:37 AM EDT Problem: Adult Inpatient Plan of Care Goal: Absence of Hospital-Acquired Illness or Injury Outcome: Ongoing (Interventions Implemented as Appropriate) Goal: Optimal Comfort and Wellbeing Outcome: Ongoing (Interventions Implemented as Appropriate) Problem: Chest Pain Goal: Resolution of Chest Pain Symptoms Outcome: Ongoing (Interventions Implemented as Appropriate) * Plan of Care - Aman yAala RN - 09/05/2023 1:37 AM EDT Problem: Adult Inpatient Plan of Care Goal: Absence of Hospital-Acquired Illness or Injury Outcome: Ongoing (Interventions Implemented as Appropriate) Goal: Optimal Comfort and Wellbeing Outcome: Ongoing (Interventions Implemented as Appropriate) Problem: Chest Pain Goal: Resolution of Chest Pain Symptoms Outcome: Ongoing (Interventions Implemented as Appropriate) * Plan of Care - Aman Ayala RN - 09/04/2023 2:01 AM EDT Problem: Adult Inpatient Plan of Care Goal: Absence of Hospital-Acquired Illness or Injury Outcome: Ongoing (Interventions Implemented as Appropriate) Goal: Optimal Comfort and Wellbeing Outcome: Ongoing (Interventions Implemented as Appropriate) Problem: Chest Pain Goal: Resolution of Chest Pain Symptoms Outcome: Ongoing (Interventions Implemented as Appropriate) Problem: Dysrhythmia Goal: Normalized Cardiac Rhythm Outcome: Ongoing (Interventions Implemented as Appropriate) Problem: Pain Acute Goal: Acceptable Pain Control and Functional Ability Outcome: Ongoing (Interventions Implemented as Appropriate) Problem: Infection Goal: Absence of Infection Signs and Symptoms Outcome: Ongoing (Interventions Implemented as Appropriate) * Plan of Care - Tim Cardoza RN - 09/02/2023 5:54 PM EDT OUTCOME EVALUATION NOTE: OUTCOME SUMMARY: A&Ox4, VSS, on RA. No complaints of SOB or pain. 7/10 CP this afternoon, EKG obtained, MD notified. Diuresing, using hat as appropriate. Continuing to actively monitor. PLAN MOVING FORWARD: Q4 VS Monitor I&Os INDIVIDUALIZED FALL PREVENTION INTERVENTIONS: Patient-specific fall risk factors per assessment: [current deficits]: unfamiliar environment, wires/cords/lines Assistance [level of assistance required for transfers and ambulation]: Independent Supervision [direct monitoring required during toileting and ADLs]: Independent Surveillance [continuous indirect monitoring]: Telemetry, pulse ox Patient-specific fall prevention interventions for sensory deficits provided, if applicable: Yes. Lighting adjusted, clutter free environment, non-slips on, call ghosh within reach and calls as appropriate. CPG GOAL OUTCOME EVALUATION: Ongoing Problem: Adult Inpatient Plan of Care Goal: Plan of Care Review Outcome: Ongoing (Interventions Implemented as Appropriate) Goal: Patient-Specific Goal (Individualized) Outcome: Ongoing (Interventions Implemented as Appropriate) Goal: Absence of Hospital-Acquired Illness or Injury Outcome: Ongoing (Interventions Implemented as Appropriate) Goal: Optimal Comfort and Wellbeing Outcome: Ongoing (Interventions Implemented as Appropriate) Goal: Readiness for Transition of Care Outcome: Ongoing (Interventions Implemented as Appropriate) Problem: Chest Pain Goal: Resolution of Chest Pain Symptoms Outcome: Ongoing (Interventions Implemented as Appropriate) Problem: Dysrhythmia Goal: Normalized Cardiac Rhythm Outcome: Ongoing (Interventions Implemented as Appropriate) Problem: Arrhythmia/Dysrhythmia (Cardiac Catheterization) Goal: Stable Heart Rate and Rhythm Outcome: Ongoing (Interventions Implemented as Appropriate) Problem: Bleeding (Cardiac Catheterization) Goal: Absence of Bleeding Outcome: Ongoing (Interventions Implemented as Appropriate) Problem: Contrast-Induced Injury Risk (Cardiac Catheterization) Goal: Absence of Contrast-Induced Injury Outcome: Ongoing (Interventions Implemented as Appropriate) Problem: Embolism (Cardiac Catheterization) Goal: Absence of Embolism Signs and Symptoms Outcome: Ongoing (Interventions Implemented as Appropriate) Problem: Ongoing Anesthesia/Sedation Effects (Cardiac Catheterization) Goal: Anesthesia/Sedation Recovery Outcome: Ongoing (Interventions Implemented as Appropriate) Problem: Pain (Cardiac Catheterization) Goal: Acceptable Pain Control Outcome: Ongoing (Interventions Implemented as Appropriate) Problem: Vascular Access Protection (Cardiac Catheterization) Goal: Absence of Vascular Access Complication Outcome: Ongoing (Interventions Implemented as Appropriate) Problem: Pain Acute Goal: Acceptable Pain Control and Functional Ability Outcome: Ongoing (Interventions Implemented as Appropriate) Problem: Infection Goal: Absence of Infection Signs and Symptoms Outcome: Ongoing (Interventions Implemented as Appropriate) * Plan of Care - Aman Ayala RN - 09/02/2023 12:59 AM EDT Problem: Adult Inpatient Plan of Care Goal: Absence of Hospital-Acquired Illness or Injury Outcome: Ongoing (Interventions Implemented as Appropriate) Goal: Optimal Comfort and Wellbeing Outcome: Ongoing (Interventions Implemented as Appropriate) Problem: Chest Pain Goal: Resolution of Chest Pain Symptoms Outcome: Ongoing (Interventions Implemented as Appropriate) Problem: Dysrhythmia Goal: Normalized Cardiac Rhythm Outcome: Ongoing (Interventions Implemented as Appropriate) Problem: Pain Acute Goal: Acceptable Pain Control and Functional Ability Outcome: Ongoing (Interventions Implemented as Appropriate) Problem: Infection Goal: Absence of Infection Signs and Symptoms Outcome: Ongoing (Interventions Implemented as Appropriate) * Plan of Care - Tim Cardoza RN - 09/01/2023 3:58 PM EDT OUTCOME EVALUATION NOTE: OUTCOME SUMMARY: A&Ox4, VSS, on RA. No complaints of SOB or pain. Pt reported CP, EKG taken, MD aware see DOC FLOWSHEETs. Continuing to actively monitor. PLAN MOVING FORWARD: Q4 VS Discharge planning as appropriate INDIVIDUALIZED FALL PREVENTION INTERVENTIONS: Patient-specific fall risk factors per assessment: [current deficits]: unfamiliar environment, wires/cords/lines Assistance [level of assistance required for transfers and ambulation]: Independent Supervision [direct monitoring required during toileting and ADLs]: Independent Surveillance [continuous indirect monitoring]: Telemetry, pulse ox Patient-specific fall prevention interventions for sensory deficits provided, if applicable: Yes. Lighting adjusted, clutter free environment, non-slips on, call ghosh within reach and calls as appropriate. CPG GOAL OUTCOME EVALUATION: Ongoing Problem: Adult Inpatient Plan of Care Goal: Plan of Care Review Outcome: Ongoing (Interventions Implemented as Appropriate) Goal: Patient-Specific Goal (Individualized) Outcome: Ongoing (Interventions Implemented as Appropriate) Goal: Absence of Hospital-Acquired Illness or Injury Outcome: Ongoing (Interventions Implemented as Appropriate) Goal: Optimal Comfort and Wellbeing Outcome: Ongoing (Interventions Implemented as Appropriate) Goal: Readiness for Transition of Care Outcome: Ongoing (Interventions Implemented as Appropriate) Problem: Chest Pain Goal: Resolution of Chest Pain Symptoms Outcome: Ongoing (Interventions Implemented as Appropriate) Problem: Dysrhythmia Goal: Normalized Cardiac Rhythm Outcome: Ongoing (Interventions Implemented as Appropriate) Problem: Arrhythmia/Dysrhythmia (Cardiac Catheterization) Goal: Stable Heart Rate and Rhythm Outcome: Ongoing (Interventions Implemented as Appropriate) Problem: Bleeding (Cardiac Catheterization) Goal: Absence of Bleeding Outcome: Ongoing (Interventions Implemented as Appropriate) Problem: Contrast-Induced Injury Risk (Cardiac Catheterization) Goal: Absence of Contrast-Induced Injury Outcome: Ongoing (Interventions Implemented as Appropriate) Problem: Embolism (Cardiac Catheterization) Goal: Absence of Embolism Signs and Symptoms Outcome: Ongoing (Interventions Implemented as Appropriate) Problem: Ongoing Anesthesia/Sedation Effects (Cardiac Catheterization) Goal: Anesthesia/Sedation Recovery Outcome: Ongoing (Interventions Implemented as Appropriate) Problem: Pain (Cardiac Catheterization) Goal: Acceptable Pain Control Outcome: Ongoing (Interventions Implemented as Appropriate) Problem: Vascular Access Protection (Cardiac Catheterization) Goal: Absence of Vascular Access Complication Outcome: Ongoing (Interventions Implemented as Appropriate) Problem: Pain Acute Goal: Acceptable Pain Control and Functional Ability Outcome: Ongoing (Interventions Implemented as Appropriate) Problem: Infection Goal: Absence of Infection Signs and Symptoms Outcome: Ongoing (Interventions Implemented as Appropriate) * Plan of Care - Tim Cardoza RN - 08/31/2023 4:46 PM EDT OUTCOME EVALUATION NOTE: OUTCOME SUMMARY: A&Ox4, VSS (sinus rajiv notified), on RA. No complaints of CP, pain, or SOB. Calls and ambulates appropriately, using bathroom. Diuresing see MAR. Continuing to actively monitor. PLAN MOVING FORWARD: Q4 VS Strict I&Os INDIVIDUALIZED FALL PREVENTION INTERVENTIONS: Patient-specific fall risk factors per assessment: [current deficits]: unfamiliar environment, wires/cords/lines Assistance [level of assistance required for transfers and ambulation]: Independent Supervision [direct monitoring required during toileting and ADLs]: Independent Surveillance [continuous indirect monitoring]: Telemetry, pulse ox Patient-specific fall prevention interventions for sensory deficits provided, if applicable: Yes. Lighting adjusted, clutter free environment, non-slips on, call ghosh within reach and calls as appropriate. CPG GOAL OUTCOME EVALUATION: Ongoing Problem: Adult Inpatient Plan of Care Goal: Plan of Care Review Outcome: Ongoing (Interventions Implemented as Appropriate) Goal: Patient-Specific Goal (Individualized) Outcome: Ongoing (Interventions Implemented as Appropriate) Goal: Absence of Hospital-Acquired Illness or Injury Outcome: Ongoing (Interventions Implemented as Appropriate) Goal: Optimal Comfort and Wellbeing Outcome: Ongoing (Interventions Implemented as Appropriate) Goal: Readiness for Transition of Care Outcome: Ongoing (Interventions Implemented as Appropriate) Problem: Chest Pain Goal: Resolution of Chest Pain Symptoms Outcome: Ongoing (Interventions Implemented as Appropriate) Problem: Dysrhythmia Goal: Normalized Cardiac Rhythm Outcome: Ongoing (Interventions Implemented as Appropriate) Problem: Arrhythmia/Dysrhythmia (Cardiac Catheterization) Goal: Stable Heart Rate and Rhythm Outcome: Ongoing (Interventions Implemented as Appropriate) Problem: Bleeding (Cardiac Catheterization) Goal: Absence of Bleeding Outcome: Ongoing (Interventions Implemented as Appropriate) Problem: Contrast-Induced Injury Risk (Cardiac Catheterization) Goal: Absence of Contrast-Induced Injury Outcome: Ongoing (Interventions Implemented as Appropriate) Problem: Embolism (Cardiac Catheterization) Goal: Absence of Embolism Signs and Symptoms Outcome: Ongoing (Interventions Implemented as Appropriate) Problem: Ongoing Anesthesia/Sedation Effects (Cardiac Catheterization) Goal: Anesthesia/Sedation Recovery Outcome: Ongoing (Interventions Implemented as Appropriate) Problem: Pain (Cardiac Catheterization) Goal: Acceptable Pain Control Outcome: Ongoing (Interventions Implemented as Appropriate) Problem: Vascular Access Protection (Cardiac Catheterization) Goal: Absence of Vascular Access Complication Outcome: Ongoing (Interventions Implemented as Appropriate) Problem: Pain Acute Goal: Acceptable Pain Control and Functional Ability Outcome: Ongoing (Interventions Implemented as Appropriate) Problem: Infection Goal: Absence of Infection Signs and Symptoms Outcome: Ongoing (Interventions Implemented as Appropriate) * Initial Assessments - Jorge Veloz RN - 08/30/2023 12:39 PM EDT Office of Care Management Initial Assessment Jorge Veloz RN reviewed record and discussed patient with Care Team. Source of Information: Team, bedside nurse, medical record, and Patient Introduced self/reviewed role; services accepted. Admitted From: Transfer from another hospital Location: [facility] Reason for Hospitalization: overall not feeling well and having chest discomfort Past medical History: Past Medical History: Diagnosis Date Asthma Atrial fibrillation Bilateral carpal tunnel syndrome 03/18/2023 Bilateral renal artery stenosis 03/18/2023 Depression Endometriosis S/p hysterectomy GERD (gastroesophageal reflux disease) 03/18/2023 Heart failure Hx of supraventricular tachycardia 03/18/2023 Infiltrate of lower lobe of left lung present on imaging study 03/18/2023 Insomnia Left facial numbness 03/18/2023 Left lateral epicondylitis 03/18/2023 Left wrist pain 03/18/2023 Migraine Obesity (BMI 30-39.9) MARYLOU on CPAP Seasonal allergies Hospitalizations Within the Past 30 Days: no previous admission in last 30 days Current Decision-Making Capacity: Self Advance Care Planning: Attempt Cardiopulmonary Resuscitation - Inpatient Received -Advanced Directive: Yes, on file Who is your DPOA-HC?: Child Current Coping/Education/Information Needs: pending clinical course Current Functional Ability: Independent Functional Status Prior to Admission: Independent Prior ADLs & IADLs: Independent with all ADLs & IADLs Home Environment: Others in the home: spouse. Current Living Arrangements: home/apartment/condo. Accessibility Concerns:2 story home w/ 5 PANTERA and ramp; bedroom on second level. In the last 12 months, was there a time when you were not able to pay the mortgage or rent on time?: No In the past 12 months, how many times have you moved where you were living?: 1 At any time in the past 12 months, were you homeless or living in a assisted (including now)?: No In the past 12 months has the electric, gas, oil, or water [employer] threatened to shut off services in your home?: No Within the past 12 months, you worried that your food would run out before you got the money to buymore.: Never true Within the past 12 months, the food you bought just didn't last and you didn't have money to get more.: Never true Resource / Environmental Concerns: Resource/Environmental Concerns: none In the past 12 months, has lack of transportation kept you from medical appointments or from getting medications?: No In the past 12 months, has lack of transportation kept you from meetings, work, or from getting things needed for daily living?: No Current DME: ramp, respiratory supplies, other (see comments) (Bi[facility] through [facility]) [address] [facility] [facility] [address] Social & Family Supports: All names listed below confirmed with patient as current and correct Extended Emergency Contact Information Primary Emergency Contact: JudeBoby Mobile Relation: Spouse Secondary Emergency Contact: BOOGIETOÑITOTALI Relation: Mother Current Care Provided by: self Provides Primary Care For: spouse (spouse has MS) Caregiver if needed: child(izzy), adult Quality of Family relationships: helpful, supportive Community Resources being provided currently: none Behavioral Health History: denies Substance Use/Abuse confirmed: Social History Tobacco Use Smoking Status Never Smokeless Tobacco Never In the past year have you used an illegal drug or used a prescription medication for non-medical reasons?: No 0 No problems reported 1-2 Low level 3-5 Moderate level 6-8 Substantial level 9- 10 Severe level In the past year have you had 4 or more drinks a day containing alcohol?: No 0 to 7 points: Low risk 8 to 15 points: Medium risk 16 to 19 points: High risk 20 to 40 points: Addiction likely Other Pertinent/Service Specific Information: N/A Health/Prescription Coverage: Primary Insurance: [employer] [place] Payor: [employer] [facility] [place] / Plan: [facility] [place] EXCHANGE / Product Type: *No Product type* / Secondary Insurance: N/A Prescription Coverage: Yes Preferred Pharmacy: [facility] [place], [place] - [address] [facility] [address] [facility] [address] [facility] - [place], [place] - [address] [facility] [address] [facility] [address] [facility] [address] [place] Status: Patient is a : No Primary Care Provider confirmed: JOCY Franco [phone] Patient/Caregiver Goals of Treatment: home when MR Potential Needs for Transition of Care: none Agency Referrals: Not Applicable Transportation: other (see comments) (Pt will need a ride home, as spouse has MS and cannot drive) Transportation Anticipated: taxi, other (see comments) (Pt will need assistance with a ride at d/c) Concerns to be Addressed: denies needs/concerns at this time Assessment: Patient is admitted to Cardiology [facility] 1 service for NSTEMI Plan going forward: d/c plan pending clinical course, but anticipating d/c home without needs when MR. Care Management team will continue to follow and assist with discharge planing and coordination of care as indicated. * Plan of Care - Lucina Biggs RN - 08/30/2023 9:52 AM EDTSummary: End of Shift Summary OUTCOME EVALUATION NOTE: OUTCOME SUMMARY: Loida Madrigal is a 53 y.o. female admitted for CP. Heparin gtt was D/C. Vital signs were stable. Heart rhythm was SB. She continued to be A+O x4. Patient is showing no signs or symptoms of distress. PLAN MOVING FORWARD: Continue to diurese D/C planning as appropriate CPG GOAL OUTCOME EVALUATION: Problem: Adult Inpatient Plan of Care Goal: Plan of Care Review Outcome: Ongoing (Interventions Implemented as Appropriate) Goal: Patient-Specific Goal (Individualized) Outcome: Ongoing (Interventions Implemented as Appropriate) Goal: Absence of Hospital-Acquired Illness or Injury Outcome: Ongoing (Interventions Implemented as Appropriate) Goal: Optimal Comfort and Wellbeing Outcome: Ongoing (Interventions Implemented as Appropriate) Goal: Readiness for Transition of Care Outcome: Ongoing (Interventions Implemented as Appropriate) Problem: Chest Pain Goal: Resolution of Chest Pain Symptoms Outcome: Ongoing (Interventions Implemented as Appropriate) Problem: Dysrhythmia Goal: Normalized Cardiac Rhythm Outcome: Ongoing (Interventions Implemented as Appropriate) Problem: Arrhythmia/Dysrhythmia (Cardiac Catheterization) Goal: Stable Heart Rate and Rhythm Outcome: Ongoing (Interventions Implemented as Appropriate) Problem: Bleeding (Cardiac Catheterization) Goal: Absence of Bleeding Outcome: Ongoing (Interventions Implemented as Appropriate) Problem: Contrast-Induced Injury Risk (Cardiac Catheterization) Goal: Absence of Contrast-Induced Injury Outcome: Ongoing (Interventions Implemented as Appropriate) Problem: Embolism (Cardiac Catheterization) Goal: Absence of Embolism Signs and Symptoms Outcome: Ongoing (Interventions Implemented as Appropriate) Problem: Ongoing Anesthesia/Sedation Effects (Cardiac Catheterization) Goal: Anesthesia/Sedation Recovery Outcome: Ongoing (Interventions Implemented as Appropriate) Problem: Pain (Cardiac Catheterization) Goal: Acceptable Pain Control Outcome: Ongoing (Interventions Implemented as Appropriate) Problem: Vascular Access Protection (Cardiac Catheterization) Goal: Absence of Vascular Access Complication Outcome: Ongoing (Interventions Implemented as Appropriate) Problem: Pain Acute Goal: Acceptable Pain Control and Functional Ability Outcome: Ongoing (Interventions Implemented as Appropriate) Problem: Infection Goal: Absence of Infection Signs and Symptoms Outcome: Ongoing (Interventions Implemented as Appropriate) Lucina Biggs RN * Consult Note - Otis Rader MD - 08/30/2023 9:00 AM EDT Images from the original note were not included. [facility] [place] [address] [address] INPATIENT CARDIOLOGY CONSULT NOTE Reason for Consult: Chest pain HPI: Loida Madrigal is a 53 y.o. 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 She was noted to be bradycardic (HR 57), briefly hypotensive (BP 88/46), have elevated troponin (698 -> 699 -> 698, ULN is <60), NT pro-BNP >3000 without ischemic EKG changes. She was loaded with aspirin, plavix, started on heparin gtt, and transferred here for further management. Here, high sensitivity trops 31 -> 31; NT pro-BNP 2854. Echo shows stable low normal global LV systolic function with focal hypokinesis in the anteroseptum. Cardiology is consulted for further management. Physical Exam: Last value Range last 8 hrs Temperature Temp: 36.9 ??C (98.4 ??F) Temp: [35.8 ??C (96.4 ??F)-36.9 ??C (98.4 ??F)] Heart Rate Heart Rate: 52 Heart Rate: [52-57] Blood Pressure BP: 109/58 BP: (100-109)/(51-58) Respiratory Rate Resp: 16 Resp: [16-17] SpO2 SpO2: 99 % SpO2: [98 %-99 %] General- No acute distress. HEENT- Atraumatic, normocephalic. Skin- Warm and dry. Neck- No JVD noted. Cardiovascular- Normal S1/S2, regular rate and rhythm. No murmur, rub or gallop. Lungs- Clear to auscultation bilaterally. Extremities- No edema. Neuro- A&Ox3, non-focal. Assessment: Loida Madrigal is a 53 y.o. 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 Given that patient has had multiple LHC (most recently 04/2023, demonstrating non-obstructive coronary artery disease), PET 08/17/2023 consistent with microvascular dysfunction, stable transthoracic echo, and only mildly elevated + flat troponins (31 -> 31), there is low suspicion for acute plaquerupture. Instead, would recommend medical management for microvascular disease and acute decompensated heart failure. Recommendations - Continue with aspirin 81 mg, stop clopidogrel - Can resume home DOAC for AF anticoagulation - Reasonable to hold metoprolol given bradycardic - Reintroduce amlodipine 2.5 mg as tolerated by blood pressure - Agree with ranolazine 1000 mg BID - Daily assessment of diuresis needs - Continue spironolactone and reinitiate home Jardiance in the coming days Discussed with attending physician Dr. Porsha Maxwell. Otis Rader MD Cardiovascular Medicine Fellow 08/30/2023 Associated attestation - Porsha Maxwell MD - 08/30/2023 7:05 PM EDT I saw and evaluated the patient with DR. Rader and agree with the assessment and plan documented below. 53 y.o. female p/w MINOCA in the setting of known microvascular disease, HFpEF and volume overload. Symptoms are improving with diuresis. Recommend ongoing aggressive treatment of diastolic dysfunction (loop diuretic, sabas, SGlt2-I) and microvascular disease (amlodipine, ranolazine). Consider initiation of GLP1 for weight loss. Porsha Maxwell MD Advanced Heart Disease and Pulmonary Hypertension * Plan of Care - Lillie Helm RN - 08/30/2023 6:41 AM EDT Pt had an uneventful night, denied chest pain, sob and discomfort. Pt has been NPO for possible cardiac cath in the morning. Problem: Adult Inpatient Plan of Care Goal: Plan of Care Review Outcome: Ongoing (Interventions Implemented as Appropriate) Goal: Patient-Specific Goal (Individualized) Outcome: Ongoing (Interventions Implemented as Appropriate) Goal: Absence of Hospital-Acquired Illness or Injury Outcome: Ongoing (Interventions Implemented as Appropriate) Goal: Optimal Comfort and Wellbeing Outcome: Ongoing (Interventions Implemented as Appropriate) Goal: Readiness for Transition of Care Outcome: Ongoing (Interventions Implemented as Appropriate) Problem: Chest Pain Goal: Resolution of Chest Pain Symptoms Outcome: Ongoing (Interventions Implemented as Appropriate) Problem: Dysrhythmia Goal: Normalized Cardiac Rhythm Outcome: Ongoing (Interventions Implemented as Appropriate) Problem: Arrhythmia/Dysrhythmia (Cardiac Catheterization) Goal: Stable Heart Rate and Rhythm Outcome: Ongoing (Interventions Implemented as Appropriate) Problem: Bleeding (Cardiac Catheterization) Goal: Absence of Bleeding Outcome: Ongoing (Interventions Implemented as Appropriate) Problem: Contrast-Induced Injury Risk (Cardiac Catheterization) Goal: Absence of Contrast-Induced Injury Outcome: Ongoing (Interventions Implemented as Appropriate) Problem: Embolism (Cardiac Catheterization) Goal: Absence of Embolism Signs and Symptoms Outcome: Ongoing (Interventions Implemented as Appropriate) Problem: Ongoing Anesthesia/Sedation Effects (Cardiac Catheterization) Goal: Anesthesia/Sedation Recovery Outcome: Ongoing (Interventions Implemented as Appropriate) Problem: Pain (Cardiac Catheterization) Goal: Acceptable Pain Control Outcome: Ongoing (Interventions Implemented as Appropriate) Problem: Vascular Access Protection (Cardiac Catheterization) Goal: Absence of Vascular Access Complication Outcome: Ongoing (Interventions Implemented as Appropriate) Problem: Pain Acute Goal: Acceptable Pain Control and Functional Ability Outcome: Ongoing (Interventions Implemented as Appropriate) Problem: Infection Goal: Absence of Infection Signs and Symptoms Outcome: Ongoing (Interventions Implemented as Appropriate) * Plan of Care - Neli Alcantar RN - 08/29/2023 1:57 PM EDT Problem: Adult Inpatient Plan of Care Goal: Plan of Care Review Outcome: Ongoing (Interventions Implemented as Appropriate) Goal: Patient-Specific Goal (Individualized) Outcome: Ongoing (Interventions Implemented as Appropriate) Goal: Absence of Hospital-Acquired Illness or Injury Outcome: Ongoing (Interventions Implemented as Appropriate) Goal: Optimal Comfort and Wellbeing Outcome: Ongoing (Interventions Implemented as Appropriate) Goal: Readiness for Transition of Care Outcome: Ongoing (Interventions Implemented as Appropriate) Problem: Chest Pain Goal: Resolution of Chest Pain Symptoms Outcome: Ongoing (Interventions Implemented as Appropriate) Problem: Dysrhythmia Goal: Normalized Cardiac Rhythm Outcome: Ongoing (Interventions Implemented as Appropriate) * Plan of Care - Jayson Menon RN - 08/28/2023 10:11 PM EDT Problem: Adult Inpatient Plan of Care Goal: Plan of Care Review Outcome: Ongoing (Interventions Implemented as Appropriate) Goal: Patient-Specific Goal (Individualized) Outcome: Ongoing (Interventions Implemented as Appropriate) Goal: Absence of Hospital-Acquired Illness or Injury Outcome: Ongoing (Interventions Implemented as Appropriate) Goal: Optimal Comfort and Wellbeing Outcome: Ongoing (Interventions Implemented as Appropriate) Goal: Readiness for Transition of Care Outcome: Ongoing (Interventions Implemented as Appropriate) Problem: Chest Pain Goal: Resolution of Chest Pain Symptoms Outcome: Ongoing (Interventions Implemented as Appropriate) Problem: Dysrhythmia Goal: Normalized Cardiac Rhythm Outcome: Ongoing (Interventions Implemented as Appropriate) documented in this encounter Plan of Treatment Upcoming Encounters Date Type Department Care Team (Late st Contact Info) Description 10/08/2023 8:30 AM EDT Tech Visit Vascular Lab at [place] [phone] Jose Cook 10/08/2023 9:30 AM EDT Office Visit Vascular Surgery at [place] [phone] MD [facility] [place] [address] 10/21/2023 10:30 AM EDT Appointment Nuclear Medicine at [address] Mary Reyes [facility] [place] [address] 10/21/2023 11:30 AM EDT Appointment Nuclear Medicine at [place] [phone] Mary Reyes [facility] [place] [address] 10/21/2023 12:30 PM EDT Appointment Nuclear Medicine at [place] [phone] Mary Reyes [facility] [place] [address] 10/21/2023 1:30 PM EDT Appointment Nuclear [place] [phone] Mary Reyes [facility] [place] [address] 10/21/2023 2:30 PM EDT Appointment Nuclear [place] [phone] Mary Reyes APRN [facility] [place] [address] 10/26/2023 4:00 PM EDT Office Visit Cardiology at [address] [phone] Jaspreet Kinsey MD [facility] [place] [address] 10/28/2023 9:00 AM EDT [place] [address] 10/29/2023 10:00 AM EDT Clinical [place] [address] 10/29/2023 10:15 AM EDT [place] [address] 11/01/2023 5:00 PM EDT Office Visit Gastroenterology at [place] [phone] Selene Browning, PhD [facility] [place] [address] 11/22/2023 4:40 PM EDT Office Visit Cardiology at [address] [phone] Porsha Mcdaniels MD [facility] [place] [address] 12/13/2023 10:00 AM EDT Clinical [place] [phone] [facility] [place] [address] Scheduled Orders Name Type Priority Associated Diagnoses Orde r Schedule EKG 12 Lead ECG STAT Non-ST elevation myocardial infarction (NSTEMI) One Time for 1 Occurrences starting 08/28/2023 until 08/28/2023 Basic Metabolic Panel (non-fasting) Lab Routine Heart failure with preserved ejection fraction, unspecified HF chronicity Hypokalemia Expected: 09/10/2023, Expires: 09/06/2024 Scheduled Referrals Name Type Priority Associated Diagnoses Orde r Schedule Referral to Cardiac Rehab Outpatient Referral Routine NSTEMI (non-ST elevated myocardial infarction) Ordered: 09/10/2023 documented as of this encounter Procedures Procedure Name Priority Date/Time Associated Diagnosis Comments HEMOGRAM Routine 09/10/2023 4:17 AM EDT DIFFERENTIAL, AUTOMATED Routine 09/10/19 4:17 AM EDT HC CBC,PLT & AUTO DIFF Routine 4:17 AM EDT HC VENIPUNCTURE Routine 09/10/2023 4:17 AM EDT BASIC METABOLIC PANEL (NON-FASTING) Routine 09/10/2023 4:17 AM EDT HEMOGRAM Routine 09/09/2023 5:10 AM EDT DIFFERENTIAL, AUTOMATED Routine 09/09/19 5:10 AM EDT HC CBC,PLT & AUTO DIFF Routine 5:10 AM EDT HC MAGNESIUM, SERUM Routine 09/09/2023 5 :10 AM EDT BASIC METABOLIC PANEL (NON-FASTING) Routine 09/09/2023 5:10 AM EDT EKG 12-LEAD Routine 09/08/2023 4:01 AM EDT Paresthesia of hand, bilateral SVT (supraventricular tachycardia) Acute on chronic heart failure with preserved ejection fraction HEMOGRAM Routine 09/08/2023 2:22 AM EDT DIFFERENTIAL, AUTOMATED Routine 09/08/19 2:22 AM EDT HC CBC,PLT & AUTO DIFF Routine 2:22 AM EDT HC VENIPUNCTURE Routine 09/08/2023 2:22 AM EDT BASIC METABOLIC PANEL (NON-FASTING) Routine 09/08/2023 2:22 AM EDT HEMOGRAM Routine 09/07/2023 2:56 AM EDT DIFFERENTIAL, AUTOMATED Routine 09/07/19 2:56 AM EDT HC CBC,PLT & AUTO DIFF Routine 2:56 AM EDT HC MAGNESIUM, SERUM Routine 09/07/2023 2 :56 AM EDT BASIC METABOLIC PANEL (NON-FASTING) Routine 09/07/2023 2:56 AM EDT HEMOGRAM Routine 09/06/2023 2:44 AM EDT DIFFERENTIAL, AUTOMATED Routine 09/06/19 2:44 AM EDT HC CBC,PLT & AUTO DIFF Routine 2:44 AM EDT HC VENIPUNCTURE Routine 09/06/2023 2:44 AM EDT BASIC METABOLIC PANEL (NON-FASTING) Routine 09/06/2023 2:[address] ABDOMEN AND PELVIS W CONTRAST Routine 09/05/2023 4:25 PM EDT MISCELLANEOUS LAB REQUEST Routine 09/05/2023 1:58 AM EDT HEMOGRAM Routine 09/05/2023 1:58 AM EDT DIFFERENTIAL, AUTOMATED Routine 06/30/20 24 1:58 AM EDT HC IGG 4 Routine 09/05/2023 1:58 AM EDT HC CBC,PLT & AUTO DIFF Routine 1:58 AM EDT HC VENIPUNCTURE Routine 09/05/2023 1:58 AM EDT BASIC METABOLIC PANEL (NON-FASTING) Routine 09/05/2023 1:58 AM EDT BASIC METABOLIC PANEL (NON-FASTING) Routine 09/04/2023 2:11 PM EDT HC VENIPUNCTURE Routine 09/04/2023 9:13 AM EDT HC POTASSIUM Routine 09/04/2023 4:25 AM EDT HEMOGRAM Routine 09/04/2023 3:03 AM EDT DIFFERENTIAL, AUTOMATED Routine 09/04/19 3:03 AM EDT HC CBC,PLT & AUTO DIFF Routine 3:03 AM EDT HC VENIPUNCTURE Routine 09/04/2023 3:03 AM EDT BASIC METABOLIC PANEL (NON-FASTING) Routine 09/04/2023 3:03 AM EDT EKG 12-LEAD STAT 09/03/2023 6:02 AM EDT Non-ST elevation myocardial infarction (NSTEMI) EKG 12-LEAD STAT 09/03/2023 3:05 AM EDT Non-ST elevation myocardial infarction (NSTEMI) HEMOGRAM Routine 09/03/2023 2:39 AM EDT DIFFERENTIAL, AUTOMATED Routine 09/03/19 24 2:39 AM EDT HC CBC,PLT & AUTO DIFF Routine 2:39 AM EDT HC SERUM PROT. ELECTROPHORESIS Routine 09/03/2023 2:39 AM EDT HC MAGNESIUM, SERUM Routine 09/03/2023 2 :39 AM EDT BASIC METABOLIC PANEL (NON-FASTING) Routine 09/03/2023 2:39 AM EDT HC RANDOM URINE PEP Routine 09/02/2023 9 :30 PM EDT HC VENIPUNCTURE STAT 09/02/2023 8:16 PM EDT HC TROPONIN T STAT 09/02/2023 5:05 PM EDT HC PROBNP Routine 09/02/2023 5:05 PM EDT EKG 12-LEAD STAT 09/02/2023 2:42 PM EDT Non-ST elevation myocardial infarction (NSTEMI) HC TROPONIN T STAT 09/02/2023 9:05 AM EDT HC TROPONIN T STAT 09/02/2023 3:18 AM EDT HEMOGRAM Routine 09/02/2023 3:18 AM EDT DIFFERENTIAL, AUTOMATED Routine 09/02/19 3:18 AM EDT HC CBC,PLT & AUTO DIFF Routine 3:18 AM EDT HC VENIPUNCTURE Routine 09/02/2023 3:18 AM EDT BASIC METABOLIC PANEL (NON-FASTING) Routine 09/02/2023 3:18 AM EDT HEMOGRAM Routine 09/01/2023 3:08 AM EDT DIFFERENTIAL, AUTOMATED Routine 09/01/19 3:08 AM EDT HC CBC,PLT & AUTO DIFF Routine 3:08 AM EDT HC MAGNESIUM, SERUM Routine 09/01/2023 3 :08 AM EDT BASIC METABOLIC PANEL (NON-FASTING) Routine 09/01/2023 3:08 AM EDT HC PHOSPHORUS, SERUM Routine 08/31/2023 5:03 PM EDT HC MAGNESIUM, SERUM Routine 08/31/2023 5 :03 PM EDT BASIC METABOLIC PANEL (NON-FASTING) Routine 08/31/2023 5:03 PM EDT HEMOGRAM Routine 08/31/2023 2:18 AM EDT DIFFERENTIAL, AUTOMATED Routine 08/31/19 2:18 AM EDT HC VENIPUNCTURE Routine 08/31/2023 2:18 AM EDT HC MAGNESIUM, SERUM Routine 08/31/2023 2 :18 AM EDT BASIC METABOLIC PANEL (NON-FASTING) Routine 08/31/2023 2:18 AM EDT HC UNFRACTIONATED HEPARIN (HEP UFH) Timed 08/30/2023 3:09 AM EDT HEMOGRAM Routine 08/30/2023 3:09 AM EDT DIFFERENTIAL, AUTOMATED Routine 08/30/19 3:09 AM EDT HC CBC,PLT & AUTO DIFF Routine 3:09 AM EDT HC MAGNESIUM, SERUM Routine 08/30/2023 3 :09 AM EDT BASIC METABOLIC PANEL (NON-FASTING) Routine 08/30/2023 3:09 AM EDT HC UNFRACTIONATED HEPARIN (HEP UFH) Timed 08/29/2023 5:49 PM EDT EKG 12-LEAD Routine 08/29/2023 3:05 PM EDT Non-ST elevation myocardial infarction (NSTEMI) HC UNFRACTIONATED HEPARIN (HEP UFH) Timed 08/29/2023 11:48 AM EDT ECHO LMTD W CONTRAST W LMTD SPEC DOPP COLOR DOPP Routine 08/29/2023 11:35 AM EDT Non-ST elevation myocardial infarction (NSTEMI) EKG 12-LEAD Routine 08/29/2023 6:04 AM EDT Non-ST elevation myocardial infarction (NSTEMI) CRP, ACUTE INFLAMMATION Routine 08/29/19 4:01 AM EDT HC UNFRACTIONATED HEPARIN (HEP UFH) Timed 08/29/2023 4:01 AM EDT HEMOGRAM Routine 08/29/2023 4:01 AM EDT DIFFERENTIAL, AUTOMATED Routine 08/29/19 4:01 AM EDT GREEN TUBE HOLD Routine 08/29/2023 4:01 AM EDT SEDIMENTATION RATE Routine 08/29/2023 4: 01 AM EDT HC VENIPUNCTURE Routine 08/29/2023 4:01 AM EDT BASIC METABOLIC PANEL (NON-FASTING) Routine 08/29/2023 4:01 AM EDT HC VENIPUNCTURE STAT 08/29/2023 12:31 AM EDT HC TROPONIN T STAT 08/28/2023 9:07 PM EDT HC UNFRACTIONATED HEPARIN (HEP UFH) Timed 08/28/2023 9:07 PM EDT HEMOGRAM STAT 08/28/2023 9:07 PM EDT DIFFERENTIAL, AUTOMATED STAT 08/28/19 9:07 PM EDT HC CBC,PLT & AUTO DIFF STAT 9:07 PM EDT HC PROBNP Routine 08/28/2023 9:07 PM EDT HC MAGNESIUM, SERUM STAT 08/28/2023 9 :07 PM EDT HEPATIC FUNCTION PANEL Routine 9:07 PM EDT LIPID PANEL (REFLEX DIRECT LDL) Routine 08/28/2023 9:07 PM EDT BASIC METABOLIC PANEL (NON-FASTING) STAT 08/28/2023 9:07 PM EDT documented in this encounter Results * Differential, Automated (09/10/2023 4:17 AM EDT) Neutrophils % 54.4 % [facility] Neutr Abs (ANC) 4.17 1.70 - 6.10 x10(3)/[facility] Lymphocytes % 33.2 % [facility] Lymphocytes Abs 2.5 0.9 - 3.2 x10(3)/[facility] Monocytes % 8.4 % [facility] Monocyte Abs 0.6 0.3 - 0.9 x10(3)/[facility] Eosinophils % 3.0 % [facility] Eosinophils Abs 0.2 0.0 - 0.4 x10(3)/[facility] Basophils % 0.7 % [facility] Basophils Abs 0.0 0.0 - 0.1 x10(3)/[facility] Immature Gran % 0.30 % [facility] Comment: Immature granulocytes(IG's)percentage and absolute count will include metamyelocytes, myelocytes, and promyelocytes. Blood smears from CBCs yielding IG's will be scanned manually for concordance. If this scan disagrees with the automated IG or if promyelocytes are noted, a manual differential will be performed. Shonda Gran Abs 0.02 0.00 - 0.04 x10(3)/[facility] Blood 09/10/2023 4:17 AM EDT 09/10/2023 4:29 AM EDT Narrative Resulting Agency Comment Spec In Lab Eufemia Copeland MD HEMATOLOGY ORDERAB LES [facility] [place] [address] * (ABNORMAL) Hemogram (09/10/2023 4:17 AM EDT) WBC 7.6 4.0 - 9.5 x10(3)/[facility] RBC 4.15 4.00 - 5.21 x10(6)/[facility] Hemoglobin 13.0 11.7 - 15.5 g/dL [facility] Hematocrit 39.2 35.7 - 45.8 % [facility] MCV 94.5(H) 82.6 - 94.4 [facility] MCH 31.3 27.1 - 32.0 pg [facility] MCHC 33.2 31.7 - 35.0 g/dL [facility] Platelets 267 145 - 357 x10(3)/[facility] RDWSD 44.6 37.0 - 46.0 [facility] RDWCV 13.1 11.5 - 14.1 % [facility] MPV 10.3 7.6 - 12.9 [facility] nRBC % Auto 0.0 % [facility] nRBC Abs Auto 0.000 0.000 - 0.000 x10(3)/[facility] Blood 09/10/2023 4:17 AM EDT 09/10/2023 4:29 AM EDT Narrative Resulting Agency Comment Spec In Lab Eufemia Copeland MD HEMATOLOGY ORDERAB LES [facility] [place] [address] * (ABNORMAL) Basic Metabolic Panel (non-fasting) (09/10/2023 4:17 AM EDT) Glucose Lvl 92 65 - 199 mg/dL [facility] Comment:Diabetes: >=200 mg/d L plus symptoms BUN 27(H) 8 - 18 mg/dL [facility] Creatinine 1.39(H) 0.70 - 1.20 mg/dL [facility] Sodium 138 135 - 145 mmol/L [facility] Potassium 4.1 3.5 - 5.0 mmol/L [facility] Comment: Please note: ??Patients with WBC >100,000 may have falsely elevated Potassium levels. ??For accurate Potassium quantification in these patients send serum separator tube (gold top) for subsequent determinations. ??Contact the Clinical Chemistry Laboratory if there are any questions. Chloride 103 98 - 107 mmol/L [facility] CO2 24 22 - 31 mmol/L [facility] Anion Gap 11 5 - 15 mmol/L [facility] Calcium 9.4 8.5 - 10.5 mg/dL [facility] Estimated GFR 45(L) >=60 mL/min/1. 73 m?? [facility] Comment: This patient's estimated GFR [...] MD CHEMISTRY ORDERABL ES Performing Organization Address City/[facility]/ZIP Co de Phone Number [facility] [place] [address] * Magnesium (09/10/2023 4:17 AM EDT) Magnesium 0.99 0.69 - 1.07 mmol/L [facility] Blood 09/10/2023 4:17 AM EDT 09/10/2023 4:29 AM EDT Narrative Resulting Agency Comment Spec In Lab Eufemia Copeland MD CHEMISTRY ORDERABL ES Performing Organization Address City/[facility] Co de Phone Number [facility] [place] [address] * Differential, Automated (09/09/2023 5:10 AM EDT) Neutrophils % 54.1 % [facility] Neutr Abs (ANC) 4.00 1.70 - 6.10 x10(3)/[facility] Lymphocytes % 31.7 % [facility] Lymphocytes Abs 2.3 0.9 - 3.2 x10(3)/[facility] Monocytes % 9.5 % [facility] Monocyte Abs 0.7 0.3 - 0.9 x10(3)/[facility] Eosinophils % 3.5 % [facility] Eosinophils Abs 0.3 0.0 - 0.4 x10(3)/[facility] Basophils % 0.8 % [facility] Basophils Abs 0.1 0.0 - 0.1 x10(3)/[facility] Immature Gran % 0.40 % [facility] Comment: Immature granulocytes(IG's)percentage and absolute count will include metamyelocytes, myelocytes, and promyelocytes. Blood smears from CBCs yielding IG's will be scanned manually for concordance. If this scan disagrees with the automated IG or if promyelocytes are noted, a manual differential will be performed. Shonda Gran Abs 0.03 0.00 - 0.04 x10(3)/[facility] Blood 09/09/2023 5:10 AM EDT 09/09/2023 5:19 AM EDT Narrative Resulting Agency Comment Spec In Lab Eufemia Copeland MD HEMATOLOGY ORDERAB LES [facility] [place] [address] * (ABNORMAL) Hemogram (09/09/2023 5:10 AM EDT) WBC 7.4 4.0 - 9.5 x10(3)/[facility] RBC 4.09 4.00 - 5.21 x10(6)/[facility] Hemoglobin 13.0 11.7 - 15.5 g/dL [facility] Hematocrit 39.2 35.7 - 45.8 % [facility] MCV 95.8(H) 82.6 - 94.4 fL [facility] MCH 31.8 27.1 - 32.0 pg [facility] MCHC 33.2 31.7 - 35.0 g/dL [facility] Platelets 267 145 - 357 x10(3)/[facility] RDWSD 45.3 37.0 - 46.0 fL [facility] RDWCV 12.9 11.5 - 14.1 % [facility] MPV 9.9 7.6 - 12.9 fL [facility] nRBC % Auto 0.0 % [facility] nRBC Abs Auto 0.000 0.000 - 0.000 x10(3)/mcL [facility] Blood 09/09/2023 5:10 AM EDT 09/09/2023 5:19 AM EDT Narrative Resulting Agency Comment Spec In Lab Eufemia Copeland MD HEMATOLOGY ORDERAB LES [facility] [place] [address] * (ABNORMAL) Basic Metabolic Panel (non-fasting) (09/09/2023 5:10 AM EDT) Glucose Lvl 97 65 - 199 mg/dL [facility] Comment:Diabetes: >=200 mg/d L plus symptoms BUN 22(H) 8 - 18 mg/dL [facility] Creatinine 1.36(H) 0.70 - 1.20 mg/dL [facility] Sodium 137 135 - 145 mmol/L [facility] Potassium 3.6 3.5 - 5.0 mmol/L [facility] Comment: Please note: ??Patients with WBC >100,000 may have falsely elevated Potassium levels. ??For accurate Potassium quantification in these patients send serum separator tube (gold top) for subsequent determinations. ??Contact the Clinical Chemistry Laboratory if there are any questions. Chloride 100 98 - 107 mmol/L [facility] CO2 25 22 - 31 mmol/L [facility] Anion Gap 12 5 - 15 mmol/L [facility] Calcium 9.5 8.5 - 10.5 mg/dL [facility] Estimated GFR 46(L) >=60 mL/min/1. 73 m?? [facility] Comment: This patient's estimated GFR [...] and symptoms in addition to eGFR. Blood 09/09/2023 5:10 AM EDT 09/09/2023 5:19 AM EDT Narrative Resulting Agency Comment Spec In Lab Eufemia Copeland MD CHEMISTRY ORDERABL ES Performing Organization Address [facility] Co de Phone Number [facility] [place] [address] * Magnesium (09/09/2023 5:10 AM EDT) Pathologist [facility] Magnesium 0.97 0.69 - 1.07 mmol/L [facility] Blood 09/09/2023 5:10 AM EDT 09/09/2023 5:19 AM EDT Narrative Resulting Agency Comment Spec In Lab Eufemia Copeland MD CHEMISTRY ORDERABL ES Performing Organization Address [facility] de Phone Number [facility] [place] [address] * EKG 12 Lead (09/08/2023 4:01 AM EDT) Ventricular rate 59 BPM MUSE SYSTEM Atrial Rate 59 BPM MUSE SYSTEM P-R Interval 192 ms MUSE SYSTEM QRS Duration 92 ms MUSE SYSTEM Q-T Interval 452 ms MUSE SYSTEM QTC Calculated (Bezet) 447 ms MUSE SYSTEM Calculated P [place] 38 degrees MUSE SYSTEM Calculated R [place] 51 degrees MUSE SYSTEM Calculated T [place] -18 degrees MUSE SYSTEM INTERPRETATION Sinus bradycardia Diffuse ST depression, consider subendocardial injury Abnormal ECG When compared with ECG of 03-SEP-2023 06:02, Premature atrial complexes are no longer Present QT has shortened I personally reviewed the tracing and edited the fellows interpretation Confirmed by fellow Vito Pearce ([id number]) on 09/08/2023 7:40:32 AM Confirmed by MD Angelo Danette ([id number]) on 09/08/2023 2:12:57 PM MUSE SYSTEM 09/08/2023 4:01 AM EDT 09/08/2023 2:12 PM EDT Eufemia Copeland MD ECG ORDERABLES MUSE SYSTEM * Differential, Automated (09/08/2023 2:22 AM EDT) Neutrophils % 55.2 % [facility] Neutr Abs (ANC) 4.74 1.70 - 6.10 x10(3)/[facility] Lymphocytes % 30.8 % [facility] Lymphocytes Abs 2.6 0.9 - 3.2 x10(3)/[facility] Monocytes % 9.5 % [facility] Monocyte Abs 0.8 0.3 - 0.9 x10(3)/[facility] Eosinophils % 3.6 % [facility] Eosinophils Abs 0.3 0.0 - 0.4 x10(3)/[facility] Basophils % 0.5 % [facility] Basophils Abs 0.0 0.0 - 0.1 x10(3)/[facility] Immature Gran % 0.40 % [facility] Comment: Immature granulocytes(IG's)percentage and absolute count will include metamyelocytes, myelocytes, and promyelocytes. Blood smears from CBCs yielding IG's will be scanned manually for concordance. If this scan disagrees with the automated IG or if promyelocytes are noted, a manual differential will be performed. Shonda Gran Abs 0.03 0.00 - 0.04 x10(3)/[facility] Blood 09/08/2023 2:22 AM EDT 09/08/2023 2:37 AM EDT Narrative Resulting Agency Comment Spec In Lab Eufemia Copeland MD HEMATOLOGY ORDERAB LES [facility] [place] [address] * (ABNORMAL) Hemogram (09/08/2023 2:22 AM EDT) Pathologist [facility] WBC 8.6 4.0 - 9.5 x10(3)/[facility] RBC 3.98(L) 4.00 - 5.21 x10(6)/[facility] Hemoglobin 12.8 11.7 - 15.5 g/dL [facility] Hematocrit 37.4 35.7 - 45.8 % [facility] MCV 94.0 82.6 - 94.4 fL [facility] MCH 32.2(H) 27.1 - 32.0 pg [facility] MCHC 34.2 31.7 - 35.0 g/dL [facility] Platelets 274 145 - 357 x10(3)/[facility] RDWSD 44.5 37.0 - 46.0 [facility] RDWCV 12.9 11.5 - 14.1 % [facility] MPV 10.4 7.6 - 12.9 [facility] nRBC % Auto 0.0 % [facility] nRBC Abs Auto 0.000 0.000 - 0.000 x10(3)/[facility] Blood 09/08/2023 2:22 AM EDT 09/08/2023 2:37 AM EDT Narrative Resulting Agency Comment Spec In Lab Eufemia Copeland MD HEMATOLOGY ORDERAB LES [facility] [place] [address] * (ABNORMAL) Basic Metabolic Panel (non-fasting) (09/08/2023 2:22 AM EDT) [facility] Glucose Lvl 98 65 - 199 mg/dL [facility] Comment:Diabetes: >=200 mg/d L plus symptoms BUN 19(H) 8 - 18 mg/dL [facility] Creatinine 1.41(H) 0.70 - 1.20 mg/dL [facility] Sodium 139 135 - 145 mmol/L [facility] Potassium 3.6 3.5 - 5.0 mmol/L [facility] Comment: Please note: ??Patients with WBC >100,000 may have falsely elevated Potassium levels. ??For accurate Potassium quantification in these patients send serum separator tube (gold top) for subsequent determinations. ??Contact the Clinical Chemistry Laboratory if there are any questions. Chloride 103 98 - 107 mmol/L [facility] CO2 24 22 - 31 mmol/L [facility] Anion Gap 12 5 - 15 mmol/L [facility] Calcium 9.1 8.5 - 10.5 mg/dL [facility] Estimated GFR 44(L) >=60 mL/min/1. 73 m?? [facility] Comment: This patient's estimated GFR [...] and symptoms in addition to eGFR. Blood 09/08/2023 2:22 AM EDT 09/08/2023 2:37 AM EDT Narrative Resulting Agency Comment Spec In Lab Eufemia Copeland MD CHEMISTRY ORDERABL ES [facility] [place] [address] * Magnesium (09/08/2023 2:22 AM EDT) Magnesium 0.91 0.69 - 1.07 mmol/L [facility] Blood 09/08/2023 2:22 AM EDT 09/08/2023 2:37 AM EDT Narrative Resulting Agency Comment Spec In Lab Eufemia Copeland MD CHEMISTRY ORDERABL ES [facility] [place] [address] * Differential, Automated (09/07/2023 2:56 AM EDT) Neutrophils % 52.3 % [facility] Neutr Abs (ANC) 3.74 1.70 - 6.10 x10(3)/[facility] Lymphocytes % 33.8 % [facility] Lymphocytes Abs 2.4 0.9 - 3.2 x10(3)/[facility] Monocytes % 9.4 % [facility] Monocyte Abs 0.7 0.3 - 0.9 x10(3)/[facility] Eosinophils % 3.6 % [facility] Eosinophils Abs 0.3 0.0 - 0.4 x10(3)/[facility] Basophils % 0.6 % [facility] Basophils Abs 0.0 0.0 - 0.1 x10(3)/[facility] Immature Gran % 0.30 % [facility] Comment: Immature granulocytes(IG's)percentage and absolute count will include metamyelocytes, myelocytes, and promyelocytes. Blood smears from CBCs yielding IG's will be scanned manually for concordance. If this scan disagrees with the automated IG or if promyelocytes are noted, a manual differential will be performed. Shonda Gran Abs 0.02 0.00 - 0.04 x10(3)/[facility] Blood 09/07/2023 2:56 AM EDT 09/07/2023 3:31 AM EDT Narrative Resulting Agency Comment Spec In Lab Eufemia Copeland MD HEMATOLOGY ORDERAB LES [facility] [place] [address] * (ABNORMAL) Hemogram (09/07/2023 2:56 AM EDT) [facility] WBC 7.2 4.0 - 9.5 x10(3)/[facility] RBC 4.16 4.00 - 5.21 x10(6)/[facility] Hemoglobin 13.1 11.7 - 15.5 g/dL [facility] Hematocrit 39.7 35.7 - 45.8 % [facility] MCV 95.4(H) 82.6 - 94.4 [facility] MCH 31.5 27.1 - 32.0 pg [facility] MCHC 33.0 31.7 - 35.0 g/dL [facility] Platelets 277 145 - 357 x10(3)/[facility] RDWSD 45.4 37.0 - 46.0 [facility] RDWCV 12.9 11.5 - 14.1 % [facility] MPV 10.6 7.6 - 12.9 [facility] nRBC % Auto 0.0 % [facility] nRBC Abs Auto 0.000 0.000 - 0.000 x10(3)/[facility] Blood 09/07/2023 2:56 AM EDT 09/07/2023 3:31 AM EDT Narrative Resulting Agency Comment Spec In Lab Eufemia Copeland MD HEMATOLOGY ORDERAB LES [facility] [place] [address] * (ABNORMAL) Basic Metabolic Panel (non-fasting) (09/07/2023 2:56 AM EDT) [facility] Glucose Lvl 97 65 - 199 mg/dL [facility] Comment:Diabetes: >=200 mg/d L plus symptoms BUN 16 8 - 18 mg/dL [facility] Creatinine 1.19 0.70 - 1.20 mg/dL [facility] Sodium 137 135 - 145 mmol/L [facility] Potassium 3.9 3.5 - 5.0 mmol/L [facility] Comment: Please note: ??Patients with WBC >100,000 may have falsely elevated Potassium levels. ??For accurate Potassium quantification in these patients send serum separator tube (gold top) for subsequent determinations. ??Contact the Clinical Chemistry Laboratory if there are any questions. Chloride 102 98 - 107 mmol/L [facility] CO2 25 22 - 31 mmol/L [facility] Anion Gap 10 5 - 15 mmol/L [facility] Calcium 9.4 8.5 - 10.5 mg/dL [facility] Estimated GFR 54(L) >=60 mL/min/1. 73 m?? [facility] Comment: This patient's estimated GFR [...] and symptoms in addition to eGFR. Blood 09/07/2023 2:56 AM EDT 09/07/2023 3:31 AM EDT Narrative Resulting Agency Comment Spec In Lab Eufemia Copeland MD CHEMISTRY ORDERABL ES [facility] [place] [address] * Magnesium (09/07/2023 2:56 AM EDT) Magnesium 0.96 0.69 - 1.07 mmol/L [facility] Blood 09/07/2023 2:56 AM EDT 09/07/2023 3:31 AM EDT Narrative Resulting Agency Comment Spec In Lab Eufemia Copeland MD CHEMISTRY ORDERABL ES [facility] [place] [address] * Differential, Automated (09/06/2023 2:44 AM EDT) Neutrophils % 53.7 % [facility] Neutr Abs (ANC) 4.01 1.70 - 6.10 x10(3)/[facility] Lymphocytes % 32.0 % [facility] Lymphocytes Abs 2.4 0.9 - 3.2 x10(3)/[facility] LABORATORY Monocytes % 10.0 % [facility] Monocyte Abs 0.8 0.3 - 0.9 x10(3)/[facility] LABOR[facility]ORY Eosinophils % 3.2 % [facility] Eosinophils Abs 0.2 0.0 - 0.4 x10(3)/[facility] LABORATORY Basophils % 0.7 % [facility] Basophils Abs 0.0 0.0 - 0.1 x10(3)/[facility] LABORATORY Immature Gran % 0.40 % [facility] Comment: Immature granulocytes(IG's)percentage and absolute count will include metamyelocytes, myelocytes, and promyelocytes. Blood smears from CBCs yielding IG's will be scanned manually for concordance. If this scan disagrees with the automated IG or if promyelocytes are noted, a manual differential will be performed. Shonda Gran Abs 0.03 0.00 - 0.04 x10(3)/[facility] LABORATORY Blood 09/06/2023 2:44 AM EDT 09/06/2023 2:58 AM EDT Narrative Resulting Agency Comment Spec In Lab Eufemia Copeland MD HEMATOLOGY ORDERAB LES [facility] [place] [address] * Hemogram (09/06/2023 2:44 AM EDT) WBC 7.5 4.0 - 9.5 x10(3)/[facility] LABORAT[facility] RBC 4.26 4.00 - 5.21 x10(6)/[facility] Hemoglobin 13.6 11.7 - 15.5 g/dL [facility] Hematocrit 40.2 35.7 - 45.8 % [facility] MCV 94.4 82.6 - 94.4 [facility] LABORATORY MCH 31.9 27.1 - 32.0 pg [facility] MCHC 33.8 31.7 - 35.0 g/dL [facility] Platelets 274 145 - 357 x10(3)/[facility] LABOR[facility]ORY RDWSD 44.3 37.0 - 46.0 [facility] LABORATORY RDWCV 12.9 11.5 - 14.1 % [facility] MPV 10.2 7.6 - 12.9 [facility] LABORATORY nRBC % Auto 0.0 % [facility] nRBC Abs Auto 0.000 0.000 - 0.000 x10(3)/[facility]OR[facility] Blood 09/06/2023 2:44 AM EDT 09/06/2023 2:58 AM EDT Narrative Resulting Agency Comment Spec In Lab Eufemia Copeland MD HEMATOLOGY ORDERAB LES [facility] [place] [address] * Basic Metabolic Panel (non-fasting) (09/06/2023 2:44 AM EDT) Glucose Lvl 100 65 - 199 mg/dL [facility] Comment:Diabetes: >=200 mg/d L plus symptoms BUN 16 8 - 18 mg/dL [facility] Creatinine 1.05 0.70 - 1.20 mg/dL [facility] Sodium 137 135 - 145 mmol/L [facility] Potassium 3.6 3.5 - 5.0 mmol/L [facility] Comment: Please note: ??Patients with WBC >100,000 may have falsely elevated Potassium levels. ??For accurate Potassium quantification in these patients send serum separator tube (gold top) for subsequent determinations. ??Contact the Clinical Chemistry Laboratory if there are any questions. Chloride 102 98 - 107 mmol/L [facility] CO2 25 22 - 31 mmol/L [facility] Anion Gap 10 5 - 15 mmol/L [facility] Calcium 9.5 8.5 - 10.5 mg/dL [facility] Estimated GFR 63 >=60 mL/min/1. 73 m?? [facility] Comment: This patient's estimated GFR [...] and symptoms in addition to eGFR. Blood 09/06/2023 2:44 AM EDT 09/06/2023 2:58 AM EDT Narrative Resulting Agency Comment Spec In Lab Eufemia Copeland MD CHEMISTRY ORDERABL ES [facility] [place] [address] * Magnesium (09/06/2023 2:44 AM EDT) Magnesium 0.95 0.69 - 1.07 mmol/L [facility] Blood 09/06/2023 2:44 AM EDT 09/06/2023 2:58 AM EDT Narrative Resulting Agency Comment Spec In Lab Eufemia Copeland MD CHEMISTRY ORDERABL ES [facility] [place] [address] * CT Abdomen & Pelvis w Contrast (09/05/2023 4:25 PM EDT) [facility] [employer] WORKSTATION ID [id number] [facility] Anatomical Region Laterality Modality Abdomen, Pelvis Computed [...] who have questions please contact the health wound care nurse that requested 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 ? Narrative 09/06/2023 9:47 AM EDT EXAMINATION: CTA/CT [...] patients who have questions please contactthe health wound care nurse that requested 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 Samantha Broussard MD IMG CT ORDERABLES * Differential, Automated (09/05/2023 1:58 AM EDT) Neutrophils % 54.5 % [facility] Neutr Abs (ANC) 4.32 1.70 - 6.10 x10(3)/[facility] Lymphocytes % 30.5 % [facility] Lymphocytes Abs 2.4 0.9 - 3.2 x10(3)/[facility] Monocytes % 11.4 % [facility] Monocyte Abs 0.9 0.3 - 0.9 x10(3)/[facility] Eosinophils % 2.8 % [facility] Eosinophils Abs 0.2 0.0 - 0.4 x10(3)/[facility] LAB[facility] Basophils % 0.5 % [facility] Basophils Abs 0.0 0.0 - 0.1 x10(3)/[facility]OR[facility] Immature Gran % 0.30 % [facility] Comment: Immature granulocytes(IG's)percentage and absolute count will include metamyelocytes, myelocytes, and promyelocytes. Blood smears from CBCs yielding IG's will be scanned manually for concordance. If this scan disagrees with the automated IG or if promyelocytes are noted, a manual differential will be performed. Shonda Gran Abs 0.02 0.00 - 0.04 x10(3)/[facility] Blood 09/05/2023 1:58 AM EDT 09/05/2023 2:13 AM EDT Narrative Resulting Agency Comment Spec In Lab Eufemia Copeland MD HEMATOLOGY ORDERAB LES [facility] [place] [address] * Hemogram (09/05/2023 1:58 AM EDT) WBC 7.9 4.0 - 9.5 x10(3)/[facility] LAB[facility] RBC 4.38 4.00 - 5.21 x10(6)/[facility] Hemoglobin 13.7 11.7 - 15.5 g/dL [facility] Hematocrit 40.5 35.7 - 45.8 % [facility] MCV 92.5 82.6 - 94.4 fL [facility] MCH 31.3 27.1 - 32.0 pg [facility] MCHC 33.8 31.7 - 35.0 g/dL [facility] Platelets 282 145 - 357 x10(3)/[facility] RDWSD 44.0 37.0 - 46.0 fL [facility] RDWCV 13.0 11.5 - 14.1 % [facility] MPV 10.4 7.6 - 12.9 fL [facility] nRBC % Auto 0.0 % [facility] nRBC Abs Auto 0.000 0.000 - 0.000 x10(3)/[facility] Blood 09/05/2023 1:58 AM EDT 09/05/2023 2:13 AM EDT Narrative Resulting Agency Comment Spec In Lab Eufemia Copeland MD HEMATOLOGY ORDERAB LES [facility] [place] [address] * (ABNORMAL) Basic Metabolic Panel (non-fasting) (09/05/2023 1:58 AM EDT) Glucose Lvl 103 65 - 199 mg/dL [facility] Comment:Diabetes: >=200 mg/d L plus symptoms BUN 24(H) 8 - 18 mg/dL [facility] Creatinine 1.10 0.70 - 1.20 mg/dL [facility] Sodium 136 135 - 145 mmol/L [facility] Potassium 3.6 3.5 - 5.0 mmol/L [facility] Comment: Please note: ??Patients with WBC >100,000 may have falsely elevated Potassium levels. ??For accurate Potassium quantification in these patients send serum separator tube (gold top) for subsequent determinations. ??Contact the Clinical Chemistry Laboratory if there are any questions. Chloride 99 98 - 107 mmol/L [facility] CO2 25 22 - 31 mmol/L [facility] Anion Gap 12 5 - 15 mmol/L [facility] Calcium 9.5 8.5 - 10.5 mg/dL [facility] Estimated GFR 60 >=60 mL/min/1. 73 m?? [facility] Comment: This patient's estimated GFR [...] and symptoms in addition to eGFR. Blood 09/05/2023 1:58 AM EDT 09/05/2023 2:13 AM EDT Narrative Resulting Agency Comment Spec In Lab Eufemia Copeland MD CHEMISTRY ORDERABL ES Performing Organization Address City/[facility]/ZIP Co de Phone Number [facility] [place] [address] * Magnesium (09/05/2023 1:58 AM EDT) Pathologist [facility] Magnesium 1.02 0.69 - 1.07 mmol/L [facility] Blood 09/05/2023 1:58 AM EDT 09/05/2023 2:13 AM EDT Narrative Resulting Agency Comment Spec In Lab Eufemia Copeland MD CHEMISTRY ORDERABL ES Performing Organization Address City/[facility]/ZIP Co de Phone Number [facility] [place] [address] * Miscellaneous Lab request (09/05/2023 1:58 AM EDT) Pathologist [facility] Misc Lab Result Request received in lab. [facility] Blood 09/05/2023 1:58 AM EDT 09/05/2023 2:14 AM EDT Narrative Resulting Agency Comment Spec In Lab Samantha Broussard MD HEMATOLOGY ORDERABLE S Performing Organization Address [facility]/ZIP Co de Phone Number [facility] [place] [address] * IgG 4 (09/05/2023 1:58 AM EDT) [facility] IgG 4 47.7 3.9 - 86.4 mg/dL [facility] Blood 09/05/2023 1:58 AM EDT 09/05/2023 2:13 AM EDT Narrative Resulting Agency Comment Spec In Lab Samantha Broussard MD IMMUNOLOGY ORDERABLE S Performing Organization Address City/[facility] Co de Phone Number [facility] [place] [address] * (ABNORMAL) Basic Metabolic Panel (non-fasting) (09/04/2023 2:11 PM EDT) [facility] Glucose Lvl 104 65 - 199 mg/dL [facility] Comment:Diabetes: >=200 mg/d L plus symptoms BUN 24(H) 8 - 18 mg/dL [facility] Creatinine 1.34(H) 0.70 - 1.20 mg/dL [facility] Sodium 136 135 - 145 mmol/L [facility] Potassium 3.7 3.5 - 5.0 mmol/L [facility] Comment: Please note: ??Patients with WBC >100,000 may have falsely elevated Potassium levels. ??For accurate Potassium quantification in these patients send serum separator tube (gold top) for subsequent determinations. ??Contact the Clinical Chemistry Laboratory if there are any questions. Chloride 96(L) 98 - 107 mmol/L [facility] CO2 25 22 - 31 mmol/L [facility] Anion Gap 15 5 - 15 mmol/L [facility] Calcium 9.6 8.5 - 10.5 mg/dL [facility] Estimated GFR 47(L) >=60 mL/min/1. 73 m?? [facility] Comment: This patient's estimated GFR [...] and symptoms in addition to eGFR. Blood 09/04/2023 2:11 PM EDT 09/04/2023 2:31 PM EDT Narrative Resulting Agency Comment Spec In Lab Archie Mcmanus MD CHEMISTRY ORDERABLES Performing Organization Address [facility] Co de Phone Number [facility] [place] [address] * (ABNORMAL) Potassium (09/04/2023 9:13 AM EDT) [facility] Signature Potassium 3.2(L) 3.5 - 5.0 mmol/L [facility] Comment: Please note: ??Patients with [...] Broussard MD CHEMISTRY ORDERABLES Performing Organization Address [facility]/ZIP Co de Phone Number [facility] [place] [address] * (ABNORMAL) Potassium (09/04/2023 4:25 AM EDT) Potassium 2.9(Criti edy) 3.5 - 5.0 mmol/L [facility] Comment: Called by: staci, Read back by: Katalina Mirza, Date/Time:09/04/23 05:17. Please note: ??Patients with WBC >100,000 may have falsely elevated Potassium levels. ??For accurate Potassium quantification in these patients send serum separator tube (gold top) for subsequent determinations. ??Contact the Clinical Chemistry Laboratory if there are any questions. Blood 09/04/2023 4:25 AM EDT 09/04/2023 4:33 AM EDT Narrative Resulting Agency Comment Spec In Lab Lorna Herr MD CHEMISTRY ORDERABLES [facility] [place] [address] * Differential, Automated (09/04/2023 3:03 AM EDT) Pathologist [facility] Neutrophils % 59.0 % [facility] Neutr Abs (ANC) 4.85 1.70 - 6.10 x10(3)/[facility] LABOR[facility]ORY Lymphocytes % 26.3 % [facility] Lymphocytes Abs 2.2 0.9 - 3.2 x10(3)/[facility]OR[facility] Monocytes % 10.4 % [facility] Monocyte Abs 0.8 0.3 - 0.9 x10(3)/[facility] Eosinophils % 3.4 % [facility] Eosinophils Abs 0.3 0.0 - 0.4 x10(3)/[facility] Basophils % 0.5 % [facility] Basophils Abs 0.0 0.0 - 0.1 x10(3)/[facility]OR[facility] Immature Gran % 0.40 % [facility] Comment: Immature granulocytes(IG's)percentage and absolute count will include metamyelocytes, myelocytes, and promyelocytes. Blood smears from CBCs yielding IG's will be scanned manually for concordance. If this scan disagrees with the automated IG or if promyelocytes are noted, a manual differential will be performed. Shonda Gran Abs 0.03 0.00 - 0.04 x10(3)/[facility] Blood 09/04/2023 3:03 AM EDT 09/04/2023 3:21 AM EDT Narrative Resulting Agency Comment Spec In Lab Eufemia Copeland MD HEMATOLOGY ORDERAB LES [facility] [place] [address] * (ABNORMAL) Hemogram (09/04/2023 3:03 AM EDT) WBC 8.2 4.0 - 9.5 x10(3)/[facility] LABOR[facility]ORY RBC 4.55 4.00 - 5.21 x10(6)/[facility] Hemoglobin 14.8 11.7 - 15.5 g/dL [facility] Hematocrit 41.8 35.7 - 45.8 % [facility] MCV 91.9 82.6 - 94.4 [facility] LABORATORY MCH 32.5(H) 27.1 - 32.0 pg [facility] MCHC 35.4(H) 31.7 - 35.0 g/dL [facility] Platelets 306 145 - 357 x10(3)/[facility]OR[facility]ORY RDWSD 42.8 37.0 - 46.0 [facility] LABORATORY RDWCV 12.8 11.5 - 14.1 % [facility] MPV 10.2 7.6 - 12.9 [facility] LABORATORY nRBC % Auto 0.0 % [facility] nRBC Abs Auto 0.000 0.000 - 0.000 x10(3)/[facility] Blood 09/04/2023 3:03 AM EDT 09/04/2023 3:21 AM EDT Narrative Resulting Agency Comment Spec In Lab Eufemia Copeland MD HEMATOLOGY ORDERAB LES [facility] [place] [address] * (ABNORMAL) Basic Metabolic Panel (non-fasting) (09/04/2023 3:03 AM EDT) Glucose Lvl 117 65 - 199 mg/dL [facility] Comment:Diabetes: >=200 mg/d L plus symptoms BUN 28(H) 8 - 18 mg/dL [facility] Creatinine 1.32(H) 0.70 - 1.20 mg/dL [facility] Sodium 134(L) 135 - 145 mmol/L [facility] Potassium Not Perf 3.5 - 5.0 [facility] Comment: Unable to quantitate due to sample hemolysis. ??Sample redraw suggested. Called by: staci, Read back by: Aman Ayala, Date/Time:09/04/23 04:14. Please note: ??Patients with WBC >100,000 may have falsely elevated Potassium levels. ??For accurate Potassium quantification in these patients send serum separator tube (gold top) for subsequent determinations. ??Contact the Clinical Chemistry Laboratory if there are any questions. Chloride 92(L) 98 - 107 mmol/L [facility] CO2 26 22 - 31 mmol/L [facility] Anion Gap 16(H) 5 - 15 mmol/L [facility] Calcium 10.0 8.5 - 10.5 mg/dL [facility] Estimated GFR 48(L) >=60 mL/min/1. 73 m?? [facility] Comment: This patient's estimated GFR [...] and symptoms in addition to eGFR. Blood 09/04/2023 3:03 AM EDT 09/04/2023 3:21 AM EDT Narrative Resulting Agency Comment Spec In Lab Eufemia Copeland MD CHEMISTRY ORDERABL ES Performing Organization Address [facility] Co de Phone Number [facility] [place] [address] * Magnesium (09/04/2023 3:03 AM EDT) Pathologist [facility] Magnesium 1.07 0.69 - 1.07 mmol/L [facility] Blood 09/04/2023 3:03 AM EDT 09/04/2023 3:21 AM EDT Narrative Resulting Agency Comment Spec In Lab Eufemia Copeland MD CHEMISTRY ORDERABL ES Performing Organization Address [facility] Co de Phone Number [facility] [place] [address] * EKG 12 Lead (09/03/2023 6:02 AM EDT) Ventricular rate 65 BPM MUSE SYSTEM Atrial Rate 65 BPM MUSE SYSTEM P-R Interval 196 ms MUSE SYSTEM QRS Duration 94 ms MUSE SYSTEM Q-T Interval 580 ms MUSE SYSTEM QTC Calculated (Bezet) 603 ms MUSE SYSTEM Calculated P [place] 39 degrees MUSE SYSTEM Calculated R [place] 28 degrees MUSE SYSTEM Calculated T [place] 35 degrees MUSE SYSTEM INTERPRETATION Sinus rhythm with Premature atrial complexes Possible Left atrial enlargement Nonspecific ST and T wave abnormality Abnormal ECG When compared with ECG of 03-SEP-2023 03:05, Nonspecific T wave abnormality no longer evident in Inferior leads Nonspecific T wave abnormality, improved in Anterolateral leads QT has lengthened Confirmed by fellow MD Santo Kajal ([id number]) on 09/06/2023 12:52:08 AM Confirmed by MD Lucia Jose ([id number]) on 09/06/2023 9:05:05 PM MUSE SYSTEM 09/03/2023 6:02 AM EDT 09/06/2023 9:05 PM EDT Archie Mcmanus MD ECG ORDERABLES Performing Organization Address [facility] de Phone Number MUSE SYSTEM * EKG 12 Lead (09/03/2023 3:05 AM EDT) Ventricular rate 62 BPM MUSE SYSTEM Atrial Rate 62 BPM MUSE SYSTEM P-R Interval 174 ms MUSE SYSTEM QRS Duration 90 ms MUSE SYSTEM Q-T Interval 486 ms MUSE SYSTEM QTC Calculated (Bezet) 493 ms MUSE SYSTEM Calculated P [place] 20 degrees MUSE SYSTEM Calculated R [place] 20 degrees MUSE SYSTEM Calculated T [place] -7 degrees MUSE SYSTEM INTERPRETATION Sinus rhythm with Premature atrial complexes Nonspecific ST and T wave abnormality Abnormal ECG When compared with ECG of 02-SEP-2023 14:42, Premature atrial complexes are now Present QT has lengthened Confirmed by fellow MD Hansa, Sindhu ([id number]) on 09/06/2023 12:50:25 AM Confirmed by MD Khari, Mikey ([id number]) on 09/06/2023 9:04:55 PM MUSE SYSTEM 09/03/2023 3:05 AM EDT 09/06/2023 9:04 PM EDT Archie Mcmanus MD ECG ORDERABLES Performing Organization Address [facility] Phone Number MUSE SYSTEM * Differential, Automated (09/03/2023 2:39 AM EDT) Neutrophils % 61.1 % [facility] Neutr Abs (ANC) 5.22 1.70 - 6.10 x10(3)/[facility] LABORATORY Lymphocytes % 24.2 % [facility] Lymphocytes Abs 2.1 0.9 - 3.2 x10(3)/[facility] LABOR[facility] Monocytes % 10.3 % [facility] Monocyte Abs 0.9 0.3 - 0.9 x10(3)/[facility]OR[facility] Eosinophils % 3.6 % [facility] Eosinophils Abs 0.3 0.0 - 0.4 x10(3)/[facility]OR[facility] Basophils % 0.6 % [facility] Basophils Abs 0.0 0.0 - 0.1 x10(3)/[facility]OR[facility] Immature Gran % 0.20 % [facility] Comment: Immature granulocytes(IG's)percentage and absolute count will include metamyelocytes, myelocytes, and promyelocytes. Blood smears from CBCs yielding IG's will be scanned manually for concordance. If this scan disagrees with the automated IG or if promyelocytes are noted, a manual differential will be performed. Shonda Gran Abs 0.02 0.00 - 0.04 x10(3)/[facility] Blood 09/03/2023 2:39 AM EDT 09/03/2023 2:46 AM EDT Narrative Resulting Agency Comment Spec In Lab Eufemia Copeland MD HEMATOLOGY ORDERAB LES [facility] [place] [address] * Hemogram (09/03/2023 2:39 AM EDT) WBC 8.6 4.0 - 9.5 x10(3)/[facility] LAB[facility] RBC 4.83 4.00 - 5.21 x10(6)/[facility] Hemoglobin 15.2 11.7 - 15.5 g/dL [facility] Hematocrit 45.4 35.7 - 45.8 % [facility] MCV 94.0 82.6 - 94.4 fL [facility] MCH 31.5 27.1 - 32.0 pg [facility] MCHC 33.5 31.7 - 35.0 g/dL [facility] Platelets 295 145 - 357 x10(3)/[facility] RDWSD 44.1 37.0 - 46.0 fL [facility] RDWCV 12.8 11.5 - 14.1 % [facility] MPV 10.3 7.6 - 12.9 fL [facility] nRBC % Auto 0.0 % [facility] nRBC Abs Auto 0.000 0.000 - 0.000 x10(3)/mcL [facility] Blood 09/03/2023 2:39 AM EDT 09/03/2023 2:46 AM EDT Narrative Resulting Agency Comment Spec In Lab Eufemia Copeland MD HEMATOLOGY ORDERAB LES [facility] [place] [address] * (ABNORMAL) Basic Metabolic Panel (non-fasting) (09/03/2023 2:39 AM EDT) Glucose Lvl 108 65 - 199 mg/dL [facility] Comment:Diabetes: >=200 mg/d L plus symptoms BUN 23(H) 8 - 18 mg/dL [facility] Creatinine 1.53(H) 0.70 - 1.20 mg/dL [facility] Sodium 138 135 - 145 mmol/L [facility] Potassium 3.4(L) 3.5 - 5.0 mmol/L [facility] Comment: Please note: ??Patients with WBC >100,000 may have falsely elevated Potassium levels. ??For accurate Potassium quantification in these patients send serum separator tube (gold top) for subsequent determinations. ??Contact the Clinical Chemistry Laboratory if there are any questions. Chloride 93(L) 98 - 107 mmol/L [facility] CO2 30 22 - 31 mmol/L [facility] Anion Gap 15 5 - 15 mmol/L [facility] Calcium 10.4 8.5 - 10.5 mg/dL [facility] Estimated GFR 40(L) >=60 mL/min/1. 73 m?? [facility] Comment: This patient's estimated GFR [...] and symptoms in addition to eGFR. Blood 09/03/2023 2:39 AM EDT 09/03/2023 2:46 AM EDT Narrative Resulting Agency Comment Spec In Lab Eufemia Copeland MD CHEMISTRY ORDERABL ES Performing Organization Address [facility] [facility] Co de Phone Number [facility] [place] [address] * Magnesium (09/03/2023 2:39 AM EDT) Magnesium 0.98 0.69 - 1.07 mmol/L [facility] Blood 09/03/2023 2:39 AM EDT 09/03/2023 2:46 AM EDT Narrative Resulting Agency Comment Spec In Lab Eufemia Copeland MD CHEMISTRY ORDERABL ES Performing Organization Address [facility] Co de Phone Number [facility] [place] [address] * (ABNORMAL) Protein Electrophoresis, serum (09/03/2023 2:39 AM EDT) Total Prot Elec 7.9 6.1 - 8.0 g/dL [facility] Albumin Elect 4.87 3.20 - 5.20 g/dL [facility] Alpha1-Globul in 0.21 0.10 - 0.30 g/dL [facility] Alpha2-Globul in 1.03(H) 0.40 - 0.90 g/dL [facility] Beta Globulin 0.90 0.50 - 1.00 g/dL [facility] Gamma Globulin 0.88 0.50 - 1.30 g/dL [facility] M1 Band None Detected None Detected [facility] Blood 09/03/2023 2:39 AM EDT 09/03/2023 2:46 AM EDT Narrative Resulting Agency Comment Spec In Lab Lorna Herr MD CHEMISTRY ORDERABLES Performing Organization Address [facility]/ZIP Co de Phone Number [facility] [place] [address] * Protein Electrophoresis, urine, random (09/02/2023 9:30 PM EDT) Pathologist [facility] U Protein Ran <6 0 - 12 mg/dL [facility] U Albumin See Note [facility] Comment:No protein visible v ia electrophoresis due to a low urine total protein. U Globulin Not Perf [facility] Comment:No protein visible v ia electrophoresis due to a low urine total protein. U M Band Not Perf [facility] Comment:No protein visible v ia electrophoresis due to a low urine total protein. U PEP Comments See Note [facility] Comment: Total Protein concentration too low to fractionate using current electrophoretic technique. No protein visible via electrophoresis due to a low urine total protein. Urine 09/02/2023 9:30 PM EDT 09/02/2023 9:35 PM EDT Narrative Resulting Agency Comment Spec In Lab Lorna Herr MD URINE ORDERABLES Performing Organization Address [facility]/ZIP Co de Phone Number [facility] [place] [address] * (ABNORMAL) Troponin (09/02/2023 8:16 PM EDT) Pathologist [facility] Troponin-T HS 24(H) <=14 ng/L [facility] Comment: This patient's troponin T concentration [...] troponin value can be found in the [facility] Laboratory Test Catalog Troponin - [facility] Laboratory Test Catalog Reference: Fourth [place] Definition of Myocardial Infarction. Journal of the [place] [employer] 2018;72:9251-6990 Blood 09/02/2023 8:16 PM EDT 09/02/2023 8:25 PM EDT Narrative Resulting Agency Comment Spec In Lab Lorna Herr MD CHEMISTRY ORDERABLES Performing Organization Address City/[facility]/ZIP Co de Phone Number [facility] [place] [address] * (ABNORMAL) pro-Brain Natriuretic Peptide (09/02/2023 5:05 PM EDT) ProBNP 985(H) <=124 pg/mL [facility] Blood 09/02/2023 5:05 PM EDT 09/02/2023 5:17 PM EDT Narrative Resulting Agency Comment Spec In Lab Lorna Herr MD CHEMISTRY ORDERABLES Performing Organization Address City/[facility]/ZIP Co de Phone Number [facility] [place] [address] * (ABNORMAL) Troponin (09/02/2023 5:05 PM EDT) Troponin-T HS 24(H) <=14 ng/L [facility] Comment: This patient's troponin T concentration [...] troponin value can be found in the [facility] Laboratory Test Catalog Troponin - [facility] Laboratory Test Catalog Reference: [place] Definition of Myocardial Infarction. Journal of the [place] [employer] 2018;72:7736-1742 Blood 09/02/2023 5:05 PM EDT 09/02/2023 5:17 PM EDT Narrative Resulting Agency Comment Spec In Lab Lorna Herr MD CHEMISTRY ORDERABLES [facility] [place] [address] * EKG 12 Lead (09/02/2023 2:42 PM EDT) Ventricular rate 60 BPM MUSE SYSTEM Atrial Rate 60 BPM MUSE SYSTEM P-R Interval 178 ms MUSE SYSTEM QRS Duration 88 ms MUSE SYSTEM Q-T Interval 434 ms MUSE SYSTEM QTC Calculated (Bezet) 434 ms MUSE SYSTEM Calculated P [place] 42 degrees MUSE SYSTEM Calculated R [place] 44 degrees MUSE SYSTEM INTERPRETATION Normal sinus rhythm Possible Lateral infarct , age undetermined Difuse repolarization abnormalities Abnormal ECG When compared with ECG of 02-SEP-2023 14:09, Criteria for Septal infarct are no longer Present T wave inversion less evident in Inferior leads Nonspecific T wave abnormality has replaced inverted T waves in Anterior leads Confirmed by MD Lucia Jose ([id number]) on 09/03/2023 12:21:02 PM MUSE SYSTEM 09/02/2023 2:42 PM EDT 09/03/2023 12:21 PM EDT Archie Mcmanus MD ECG ORDERABLES MUSE SYSTEM * (ABNORMAL) Troponin (09/02/2023 9:05 AM EDT) Troponin-T HS 22(H) <=14 ng/L [facility] Comment: This patient's troponin T concentration [...] troponin value can be found in the [facility] Laboratory Test Catalog Troponin - [facility] Laboratory Test Catalog Reference: [place] Definition of Myocardial Infarction. Journal of the [place] [employer] 2018;72:7308-1278 Blood 09/02/2023 9:05 AM EDT 09/02/2023 9:28 AM EDT Narrative Resulting Agency Comment Spec In Lab Archie Mcmanus MD CHEMISTRY ORDERABLES Performing Organization Address City/[facility]/ZIP Co de Phone Number [facility] [place] [address] * Differential, Automated (09/02/2023 3:18 AM EDT) Neutrophils % 58.4 % [facility] Neutr Abs (ANC) 4.40 1.70 - 6.10 x10(3)/[facility] Lymphocytes % 28.2 % [facility] Lymphocytes Abs 2.1 0.9 - 3.2 x10(3)/[facility] Monocytes % 8.3 % [facility] Monocyte Abs 0.6 0.3 - 0.9 x10(3)/[facility] Eosinophils % 4.2 % [facility] Eosinophils Abs 0.3 0.0 - 0.4 x10(3)/[facility] Basophils % 0.5 % [facility] Basophils Abs 0.0 0.0 - 0.1 x10(3)/[facility] LABOR[facility]ORY Immature Gran % 0.40 % [facility] Comment: Immature granulocytes(IG's)percentage and absolute count will include metamyelocytes, myelocytes, and promyelocytes. Blood smears from CBCs yielding IG's will be scanned manually for concordance. If this scan disagrees with the automated IG or if promyelocytes are noted, a manual differential will be performed. Shonda Gran Abs 0.03 0.00 - 0.04 x10(3)/[facility] Blood 09/02/2023 3:18 AM EDT 09/02/2023 3:55 AM EDT Narrative Resulting Agency Comment Spec In Lab Eufemia Copeland MD HEMATOLOGY ORDERAB LES Performing Organization Address City/[facility]/ZIP Co de Phone Number [facility] [place] [address] * (ABNORMAL) Hemogram (09/02/2023 3:18 AM EDT) Pathologist [facility] WBC 7.6 4.0 - 9.5 x10(3)/[facility] LAB[facility]ATORY RBC 4.33 4.00 - 5.21 x10(6)/[facility] Hemoglobin 13.6 11.7 - 15.5 g/dL [facility] Hematocrit 41.0 35.7 - 45.8 % [facility] MCV 94.7(H) 82.6 - 94.4 [facility]ORY MCH 31.4 27.1 - 32.0 pg [facility] MCHC 33.2 31.7 - 35.0 g/dL [facility] Platelets 275 145 - 357 x10(3)/[facility] LAB[facility]ORY RDWSD 45.7 37.0 - 46.0 [facility] RDWCV 13.2 11.5 - 14.1 % [facility] MPV 10.7 7.6 - 12.9 [facility] nRBC % Auto 0.0 % [facility] nRBC Abs Auto 0.000 0.000 - 0.000 x10(3)/[facility] Blood 09/02/2023 3:18 AM EDT 09/02/2023 3:55 AM EDT Narrative Resulting Agency Comment Spec In Lab Eufemia Copeland MD HEMATOLOGY ORDERAB LES [facility] [place] [address] * (ABNORMAL) Troponin (09/02/2023 3:18 AM EDT) Pathologist [facility] Troponin-T HS 23(H) <=14 ng/L [facility] Comment: This patient's troponin T concentration [...] troponin value can be found in the [facility] Laboratory Test Catalog Troponin - [facility] Test Catalog Reference: [place] Definition of Myocardial Infarction. Journal of the [place] [employer] 2018;72:[id number] Blood 09/02/2023 3:18 AM EDT 09/02/2023 3:55 AM EDT Narrative Resulting Agency Comment Spec In Lab Archie Mcmanus MD CHEMISTRY ORDERABLES [facility] [place] [address] * (ABNORMAL) Basic Metabolic Panel (non-fasting) (09/02/2023 3:18 AM EDT) Glucose Lvl 121 65 - 199 mg/dL [facility] Comment:Diabetes: >=200 mg/d L plus symptoms BUN 17 8 - 18 mg/dL [facility] Creatinine 1.20 0.70 - 1.20 mg/dL [facility] Sodium 140 135 - 145 mmol/L [facility] Potassium 3.7 3.5 - 5.0 mmol/L [facility] Comment: Please note: ??Patients with WBC >100,000 may have falsely elevated Potassium levels. ??For accurate Potassium quantification in these patients send serum separator tube (gold top) for subsequent determinations. ??Contact the Clinical Chemistry Laboratory if there are any questions. Chloride 101 98 - 107 mmol/L [facility] CO2 25 22 - 31 mmol/L [facility] Anion Gap 14 5 - 15 mmol/L [facility] Calcium 9.5 8.5 - 10.5 mg/dL [facility] Estimated GFR 54(L) >=60 mL/min/1. 73 m?? [facility] Comment: This patient's estimated GFR [...] and symptoms in addition to eGFR. Blood 09/02/2023 3:18 AM EDT 09/02/2023 3:55 AM EDT Narrative Resulting Agency Comment Spec In Lab Eufemia Copeland MD CHEMISTRY ORDERABL ES Performing Organization Address [facility]/ZIP Co de Phone Number [facility] [place] [address] * Magnesium (09/02/2023 3:18 AM EDT) Magnesium 0.91 0.69 - 1.07 mmol/L [facility] Blood 09/02/2023 3:18 AM EDT 09/02/2023 3:55 AM EDT Narrative Resulting Agency Comment Spec In Lab Eufemia Copeland MD CHEMISTRY ORDERABL ES Performing Organization Address City/[facility]/ZIP Co de Phone Number [facility] [place] [address] * Differential, Automated (09/01/2023 3:08 AM EDT) Pathologist [facility] Neutrophils % 57.1 % [facility] Neutr Abs (ANC) 4.00 1.70 - 6.10 x10(3)/[facility] LAB[facility]ORY Lymphocytes % 26.9 % [facility] Lymphocytes Abs 1.9 0.9 - 3.2 x10(3)/[facility] Monocytes % 11.4 % [facility] Monocyte Abs 0.8 0.3 - 0.9 x10(3)/[facility] Eosinophils % 4.1 % [facility] Eosinophils Abs 0.3 0.0 - 0.4 x10(3)/[facility] LAB[facility]ORY Basophils % 0.4 % [facility] Basophils Abs 0.0 0.0 - 0.1 x10(3)/[facility]ORY Immature Gran % 0.10 % [facility] Comment: Immature granulocytes(IG's)percentage and absolute count will include metamyelocytes, myelocytes, and promyelocytes. Blood smears from CBCs yielding IG's will be scanned manually for concordance. If this scan disagrees with the automated IG or if promyelocytes are noted, a manual differential will be performed. Shonda Gran Abs 0.01 0.00 - 0.04 x10(3)/[facility] Blood 09/01/2023 3:08 AM EDT 09/01/2023 3:18 AM EDT Narrative Resulting Agency Comment Spec In Lab Eufemia Copeland MD HEMATOLOGY ORDERAB LES [facility] [place] [address] * (ABNORMAL) Hemogram (09/01/2023 3:08 AM EDT) Pathologist [facility] WBC 7.0 4.0 - 9.5 x10(3)/[facility] LAB[facility]ORY RBC 4.18 4.00 - 5.21 x10(6)/[facility] Hemoglobin 13.6 11.7 - 15.5 g/dL [facility] Hematocrit 39.8 35.7 - 45.8 % [facility] MCV 95.2(H) 82.6 - 94.4 [facility] LAB[facility]ORY MCH 32.5(H) 27.1 - 32.0 pg [facility] MCHC 34.2 31.7 - 35.0 g/dL [facility] Platelets 232 145 - 357 x10(3)/[facility] LABORATORY RDWSD 45.0 37.0 - 46.0 [facility] LAB[facility]ORY RDWCV 13.1 11.5 - 14.1 % [facility] MPV 10.2 7.6 - 12.9 [facility] LABORATORY nRBC % Auto 0.0 % [facility] nRBC Abs Auto 0.000 0.000 - 0.000 x10(3)/[facility] Blood 09/01/2023 3:08 AM EDT 09/01/2023 3:18 AM EDT Narrative Resulting Agency Comment Spec In Lab Eufemia Copeland MD HEMATOLOGY ORDERAB LES [facility] [place] [address] * (ABNORMAL) Basic Metabolic Panel (non-fasting) (09/01/2023 3:08 AM EDT) Glucose Lvl 110 65 - 199 mg/dL [facility] Comment:Diabetes: >=200 mg/d L plus symptoms BUN 20(H) 8 - 18 mg/dL [facility] Creatinine 1.22(H) 0.70 - 1.20 mg/dL [facility] Sodium 138 135 - 145 mmol/L [facility] Potassium 4.0 3.5 - 5.0 mmol/L [facility] Comment: Please note: ??Patients with WBC >100,000 may have falsely elevated Potassium levels. ??For accurate Potassium quantification in these patients send serum separator tube (gold top) for subsequent determinations. ??Contact the Clinical Chemistry Laboratory if there are any questions. Chloride 101 98 - 107 mmol/L [facility] CO2 23 22 - 31 mmol/L [facility] Anion Gap 14 5 - 15 mmol/L [facility] Calcium 9.7 8.5 - 10.5 mg/dL [facility] Estimated GFR 53(L) >=60 mL/min/1. 73 m?? [facility] Comment: This patient's estimated GFR [...] and symptoms in addition to eGFR. Blood 09/01/2023 3:08 AM EDT 09/01/2023 3:18 AM EDT Narrative Resulting Agency Comment Spec In Lab Eufemia Copeland MD CHEMISTRY ORDERABL ES Performing Organization Address [facility]/ZIP Co de Phone Number [facility] [place] [address] * Magnesium (09/01/2023 3:08 AM EDT) Magnesium 0.98 0.69 - 1.07 mmol/L [facility] Blood 09/01/2023 3:08 AM EDT 09/01/2023 3:18 AM EDT Narrative Resulting Agency Comment Spec In Lab Eufemia Copeland MD CHEMISTRY ORDERABL ES Performing Organization Address City/[facility]/ZIP Co de Phone Number [facility] [place] [address] * Magnesium (08/31/2023 5:03 PM EDT) Magnesium 0.95 0.69 - 1.07 mmol/L [facility] Blood 08/31/2023 5:03 PM EDT 08/31/2023 5:08 PM EDT Narrative Resulting Agency Comment Spec In Lab Eufemia Copeland MD CHEMISTRY ORDERABL ES Performing Organization Address [facility]/ZIP Co de Phone Number [facility] [place] [address] * Phosphorus (08/31/2023 5:03 PM EDT) Pathologist [facility] Phosphorus 3.8 2.5 - 4.5 mg/dL [facility] Blood 08/31/2023 5:03 PM EDT 08/31/2023 5:08 PM EDT Narrative Resulting Agency Comment Spec In Lab Eufemia Copeland MD CHEMISTRY ORDERABL ES Performing Organization Address City/[facility]/ZIP Co de Phone Number [facility] [place] [address] * (ABNORMAL) Basic Metabolic Panel (non-fasting) (08/31/2023 5:03 PM EDT) Glucose Lvl 111 65 - 199 mg/dL [facility] Comment:Diabetes: >=200 mg/d L plus symptoms BUN 17 8 - 18 mg/dL [facility] Creatinine 1.14 0.70 - 1.20 mg/dL [facility] Sodium 138 135 - 145 mmol/L [facility] Potassium 3.8 3.5 - 5.0 mmol/L [facility] Comment: Please note: ??Patients with WBC >100,000 may have falsely elevated Potassium levels. ??For accurate Potassium quantification in these patients send serum separator tube (gold top) for subsequent determinations. ??Contact the Clinical Chemistry Laboratory if there are any questions. Chloride 101 98 - 107 mmol/L [facility] CO2 23 22 - 31 mmol/L [facility] Anion Gap 14 5 - 15 mmol/L [facility] Calcium 9.6 8.5 - 10.5 mg/dL [facility] Estimated GFR 57(L) >=60 mL/min/1. 73 m?? [facility] Comment: This patient's estimated GFR [...] and symptoms in addition to eGFR. Blood 08/31/2023 5:03 PM EDT 08/31/2023 5:08 PM EDT Narrative Resulting Agency Comment Spec In Lab Eufemia Copeland MD CHEMISTRY ORDERABL ES [facility] [place] [address] * Differential, Automated (08/31/2023 2:18 AM EDT) Neutrophils % 58.1 % [facility] Neutr Abs (ANC) 4.52 1.70 - 6.10 x10(3)/[facility] LAB[facility]ORY Lymphocytes % 25.8 % [facility] Lymphocytes Abs 2.0 0.9 - 3.2 x10(3)/[facility] Monocytes % 11.0 % [facility] Monocyte Abs 0.9 0.3 - 0.9 x10(3)/[facility] Eosinophils % 4.0 % [facility] Eosinophils Abs 0.3 0.0 - 0.4 x10(3)/[facility] Basophils % 0.6 % [facility] Basophils Abs 0.0 0.0 - 0.1 x10(3)/[facility] Immature Gran % 0.50 % [facility] Comment: Immature granulocytes(IG's)percentage and absolute count will include metamyelocytes, myelocytes, and promyelocytes. Blood smears from CBCs yielding IG's will be scanned manually for concordance. If this scan disagrees with the automated IG or if promyelocytes are noted, a manual differential will be performed. Shonda Gran Abs 0.04 0.00 - 0.04 x10(3)/[facility] Blood 08/31/2023 2:18 AM EDT 08/31/2023 2:23 AM EDT Narrative Resulting Agency Comment Spec In Lab Archie Mcmanus MD HEMATOLOGY ORDERABLE S Performing Organization Address City/State/[facility] Co de Phone Number [facility] [place] [address] * (ABNORMAL) Hemogram (08/31/2023 2:18 AM EDT) WBC 7.8 4.0 - 9.5 x10(3)/[facility] LAB[facility]ORY RBC 3.97(L) 4.00 - 5.21 x10(6)/[facility] Hemoglobin 12.6 11.7 - 15.5 g/dL [facility] Hematocrit 38.5 35.7 - 45.8 % [facility] MCV 97.0(H) 82.6 - 94.4 fL [facility] MCH 31.7 27.1 - 32.0 pg [facility] MCHC 32.7 31.7 - 35.0 g/dL [facility] Platelets 218 145 - 357 x10(3)/[facility] LABORATORY RDWSD 47.5(H) 37.0 - 46.0 fL [facility] RDWCV 13.2 11.5 - 14.1 % [facility] MPV 10.6 7.6 - 12.9 fL [facility] nRBC % Auto 0.0 % [facility] nRBC Abs Auto 0.000 0.000 - 0.000 x10(3)/mcL [facility] Blood 08/31/2023 2:18 AM EDT 08/31/2023 2:23 AM EDT Narrative Resulting Agency Comment Spec In Lab Archie Mcmanus MD HEMATOLOGY ORDERABLE S Performing Organization Address City/[facility]/ZIP Co de Phone Number [facility] [place] [address] * Magnesium (08/31/2023 2:18 AM EDT) Pathologist [facility] Magnesium 0.96 0.69 - 1.07 mmol/L [facility] Blood 08/31/2023 2:18 AM EDT 08/31/2023 2:23 AM EDT Narrative Resulting Agency Comment Spec In Lab Eufemia Copeland MD CHEMISTRY ORDERABL ES Performing Organization Address [facility] Co de Phone Number [facility] [place] [address] * (ABNORMAL) Basic Metabolic Panel (non-fasting) (08/31/2023 2:18 AM EDT) Glucose Lvl 114 65 - 199 mg/dL [facility] Comment:Diabetes: >=200 mg/d L plus symptoms BUN 18 8 - 18 mg/dL [facility] Creatinine 1.37(H) 0.70 - 1.20 mg/dL [facility] Sodium 137 135 - 145 mmol/L [facility] Comment:result rechecked-bz Potassium 3.8 3.5 - 5.0 mmol/L [facility] Comment: result rechecked-bz Please note: ??Patients with WBC >100,000 may have falsely elevated Potassium levels. ??For accurate Potassium quantification in these patients send serum separator tube (gold top) for subsequent determinations. ??Contact the Clinical Chemistry Laboratory if there are any questions. Chloride 100 98 - 107 mmol/L [facility] Comment:result rechecked-bz CO2 25 22 - 31 mmol/L [facility] Anion Gap 12 5 - 15 mmol/L [facility] Calcium 9.6 8.5 - 10.5 mg/dL [facility] Comment:result rechecked-bz Estimated GFR 46(L) >=60 mL/min/1. 73 m?? [facility] Comment: This patient's estimated GFR [...] and symptoms in addition to eGFR. Blood 08/31/2023 2:18 AM EDT 08/31/2023 2:23 AM EDT Narrative Resulting Agency Comment Spec In Lab Archie Mcmanus MD CHEMISTRY ORDERABLES Performing Organization Address City/State/[facility] Co de Phone Number [facility] [place] [address] * Differential, Automated (08/30/2023 3:09 AM EDT) Neutrophils % 67.5 % [facility] Neutr Abs (ANC) 5.26 1.70 - 6.10 x10(3)/[facility] LABORATORY Lymphocytes % 19.1 % [facility] Lymphocytes Abs 1.5 0.9 - 3.2 x10(3)/[facility] LABORATORY Monocytes % 9.4 % [facility] Monocyte Abs 0.7 0.3 - 0.9 x10(3)/[facility] [facility] Eosinophils % 3.2 % [facility] LABORATORY Eosinophils Abs 0.2 0.0 - 0.4 x10(3)/[facility] LABORATORY Basophils % 0.4 % [facility] LABORATORY Basophils Abs 0.0 0.0 - 0.1 x10(3)/[facility] LABORATORY Immature Gran % 0.40 % [facility] Comment: Immature granulocytes(IG's)percentage and absolute count will include metamyelocytes, myelocytes, and promyelocytes. Blood smears from CBCs yielding IG's will be scanned manually for concordance. If this scan disagrees with the automated IG or if promyelocytes are noted, a manual differential will be performed. Shonda Gran Abs 0.03 0.00 - 0.04 x10(3)/[facility] LABORATORY Blood 08/30/2023 3:09 AM EDT 08/30/2023 3:21 AM EDT Narrative Resulting Agency Comment Spec In Lab Archie Mcmanus MD HEMATOLOGY ORDERABLE S [facility] [place] [address] * (ABNORMAL) Hemogram (08/30/2023 3:09 AM EDT) WBC 7.8 4.0 - 9.5 x10(3)/[facility] LABORATORY RBC 3.34(L) 4.00 - 5.21 x10(6)/[facility] LABORATORY Hemoglobin 10.5(L) 11.7 - 15.5 g/dL [facility] Hematocrit 31.8(L) 35.7 - 45.8 % [facility] MCV 95.2(H) 82.6 - 94.4 fL [facility] MCH 31.4 27.1 - 32.0 pg [facility] MCHC 33.0 31.7 - 35.0 g/dL [facility] Platelets 176 145 - 357 x10(3)/[facility] LABORATORY RDWSD 46.5(H) 37.0 - 46.0 [facility] LABORATORY RDWCV 13.2 11.5 - 14.1 % [facility] LABORATORY MPV 10.9 7.6 - 12.9 [facility] LABORATORY nRBC % Auto 0.0 % [facility] LABORATORY nRBC Abs Auto 0.000 0.000 - 0.000 x10(3)/[facility] LABORATORY Blood 08/30/2023 3:09 AM EDT 08/30/2023 3:21 AM EDT Narrative Resulting Agency Comment Spec In Lab Archie Mcmanus MD HEMATOLOGY ORDERABLE S Performing Organization Address City/State/[facility] Co de Phone Number [facility] [place] [address] * Heparin (unfractionated) Level (08/30/2023 3:09 AM EDT) Heparin UFH Level 0.46 IU/mL [facility] Comment: Heparin (anti-Xa) levels should be determined in a plasma sample that has been drawn 6 hours after a dose change to approximate steady-state for continuous heparin infusions. Indication specific Heparin (anti-Xa) levels based on order set selection: Acute DVT or PE treatment: 0.3 ? 0.7 IU/mL Thrombosis Prevention (eg. atrial fibrillation, yuki-procedural bridging, mechanical valves): 0.3 ? 0.7 IU/mL Acute Coronary Syndrome: 0.3 ? 0.7 IU/mL Stroke Indications: 0.3 ? 0.5 IU/mL Ultra-low intensity (select indications in cardiac surgery): 0.1 ? 0.3 IU/mL Blood 08/30/2023 3:09 AM EDT 08/30/2023 3:21 AM EDT Narrative Resulting Agency Comment Spec In Lab Archie Mcmanus MD HEMATOLOGY ORDERABLE S [facility] [place] [address] * Magnesium (08/30/2023 3:09 AM EDT) Pathologist [facility] Magnesium 0.74 0.69 - 1.07 mmol/L [facility] Blood 08/30/2023 3:09 AM EDT 08/30/2023 3:20 AM EDT Narrative Resulting Agency Comment Spec In Lab Eufemia Copeland MD CHEMISTRY ORDERABL ES Performing Organization Address [facility] Co de Phone Number [facility] [place] [address] * (ABNORMAL) Basic Metabolic Panel (non-fasting) (08/30/2023 3:09 AM EDT) [facility] Glucose Lvl 99 65 - 199 mg/dL [facility] Comment:Diabetes: >=200 mg/d L plus symptoms BUN 16 8 - 18 mg/dL [facility] Creatinine 1.03 0.70 - 1.20 mg/dL [facility] Sodium 145 135 - 145 mmol/L [facility] Potassium 3.7 3.5 - 5.0 mmol/L [facility] Comment: Please note: ??Patients with WBC >100,000 may have falsely elevated Potassium levels. ??For accurate Potassium quantification in these patients send serum separator tube (gold top) for subsequent determinations. ??Contact the Clinical Chemistry Laboratory if there are any questions. Chloride 114(H) 98 - 107 mmol/L [facility] CO2 19(L) 22 - 31 mmol/L [facility] Anion Gap 12 5 - 15 mmol/L [facility] Calcium 7.1(L) 8.5 - 10.5 mg/dL [facility] Comment:result rechecked-mg Estimated GFR 65 >=60 mL/min/1. 73 m?? [facility] Comment: This patient's estimated GFR [...] and symptoms in addition to eGFR. Blood 08/30/2023 3:09 AM EDT 08/30/2023 3:20 AM EDT Narrative Resulting Agency Comment Spec In Lab Archie Mcmanus MD CHEMISTRY ORDERABLES Performing Organization Address [facility] Co de Phone Number [facility] [place] [address] * Heparin (unfractionated) Level (08/29/2023 5:49 PM EDT) Heparin UFH Level 0.52 IU/mL [facility] Comment: Heparin (anti-Xa) levels should be determined in a plasma sample that has been drawn 6 hours after a dose change to approximate steady-state for continuous heparin infusions. Indication specific Heparin (anti-Xa) levels based on order set selection: Acute DVT or PE treatment: 0.3 ? 0.7 IU/mL Thrombosis Prevention (eg. atrial fibrillation, yuki-procedural bridging, mechanical valves): 0.3 ? 0.7 IU/mL Acute Coronary Syndrome: 0.3 ? 0.7 IU/mL Stroke Indications: 0.3 ? 0.5 IU/mL Ultra-low intensity (select indications in cardiac surgery): 0.1 ? 0.3 IU/mL Blood 08/29/2023 5:49 PM EDT 08/29/2023 5:55 PM EDT Narrative Resulting Agency Comment Spec In Lab Archie Mcmanus MD HEMATOLOGY ORDERABLE S Performing Organization Address [facility]/ZIP Co de Phone Number [facility] [place] [address] * EKG 12 Lead (08/29/2023 3:05 PM EDT) Ventricular rate 56 BPM MUSE SYSTEM Atrial Rate 56 BPM MUSE SYSTEM P-R Interval 172 ms MUSE SYSTEM QRS Duration 86 ms MUSE SYSTEM Q-T Interval 560 ms MUSE SYSTEM QTC Calculated (Bezet) 540 ms MUSE SYSTEM Calculated P [place] 10 degrees MUSE SYSTEM Calculated R [place] 27 degrees MUSE SYSTEM Calculated T [place] 8 degrees MUSE SYSTEM INTERPRETATION Sinus bradycardia ??with intraatrial conduction disturbance Possible Lateral infarct (cited on or before 29-JUL-2023) Prolonged QT Abnormal ECG When compared with ECG of 29-AUG-2023 06:04, T wave inversion no longer evident in Lateral leads Confirmed by MD Khari, Mikey ([id number]) on 08/29/2023 9:24:58 PM MUSE SYSTEM 08/29/2023 3:05 PM EDT 08/29/2023 9:24 PM EDT Archie Mcmanus MD ECG ORDERABLES MUSE SYSTEM * Heparin (unfractionated) Level (08/29/2023 11:48 AM EDT) Heparin UFH Level 0.55 IU/mL [facility] Comment: Heparin (anti-Xa) levels should be determined in a plasma sample that has been drawn 6 hours after a dose change to approximate steady-state for continuous heparin infusions. Indication specific Heparin (anti-Xa) levels based on order set selection: Acute DVT or PE treatment: 0.3 ? 0.7 IU/mL Thrombosis Prevention (eg. atrial fibrillation, yuki-procedural bridging, mechanical valves): 0.3 ? 0.7 IU/mL Acute Coronary Syndrome: 0.3 ? 0.7 IU/mL Stroke Indications: 0.3 ? 0.5 IU/mL Ultra-low intensity (select indications in cardiac surgery): 0.1 ? 0.3 IU/mL Blood 08/29/2023 11:4 8 AM EDT 08/29/2023 11:59 AM EDT Narrative Resulting Agency Comment Spec In Lab Archie Mcmanus MD HEMATOLOGY ORDERABLE S [facility] [place] [address] * ECHO LMTD W CONTRAST W LMTD SPEC DOPP COLOR DOPP (08/29/2023 11:35 AM EDT) EF 50 HEARTLAB SYSTEM Anatomical Region Laterality Modality Cardiac Other 08/29/2023 9:47 AM EDT Narrative 08/29/2023 12:27 PM EDT [address] [place] [id number] ? Echocardiogram Report Name: JUDE, LOIDA ? Study Date: 08/29/2023 09:47 AMBP: 100/55 mmHg ? Patient Location: [place] 0483 A : 1970 ? Height: 163 cm ? Account: [id number] Age: 53 yrs ? Weight: 102 kg Gender: Female ?BSA: 2.1 m2 Ordering Physician: ARCHIE MCMANUS Referring Physician: SKIP HUMPHREY Performed By: Nalini Alvares RDCS Exam Location: [facility]. Interpretation Summary Left ventricle is normal in size. There is low normal global systolic function, with focal hypokinesis in the anteroseptum as ascribed. Right ventricle is not well visualized. No hemodynamically significant valve disease. Compared to prior studies over the past 6 months, there has been stable global LV systolic function, with oscillating regional function of the anterior wall. Procedure Limited - [id number]. Image enhancement Optison was used for left [...] Note Jaspreet Kinsey MD - 08/29/2023 [address] [place] [address] Echocardiogram Report Name: LOIDA MADRIGAL Study Date: 409:47 AMBP: 100/55 mmHg Patient Location: [address] : 1970 Height: 163 cm Account: [id number] Age: 53 yrs Weight: 102 kg Gender: Female BSA: 2.1 m2 Ordering Physician: ARCHIE MCMANUS Referring Physician: SKIP HUMPHREY Performed By: Nalini Alvares RDCS Exam Location: [facility]. Interpretation Summary Left ventricle is normal in size. There is low normal global systolicfunction, with focal hypokinesis in the anteroseptum as ascribed. Right ventricle is not well visualized. No hemodynamically significant valve disease. Compared to prior studies over the past 6 months, there has been stableglobal LV systolic function, with oscillating regional function of the anteriorwall. Procedure Limited - [id number]. Image enhancement Optison was used for left [...] 15-16diffuse Archie Mcmanus MD ECHO ORDERABLES * EKG 12 Lead (08/29/2023 6:04 AM EDT) Ventricular rate 56 BPM MUSE SYSTEM Atrial Rate 56 BPM MUSE SYSTEM P-R Interval 176 ms MUSE SYSTEM QRS Duration 90 ms MUSE SYSTEM Q-T Interval 566 ms MUSE SYSTEM QTC Calculated (Bezet) 546 ms MUSE SYSTEM Calculated P Montreat 21 degrees MUSE SYSTEM Calculated R [place] 21 degrees MUSE SYSTEM Calculated T [place]reat 0 degrees MUSE SYSTEM INTERPRETATION Sinus bradycardia Possible Lateral infarct (cited on or before 29-JUL-2023) Prolonged QT Abnormal ECG When compared with ECG of 29-JUL-2023 08:47, Premature atrial complexes are no longer Present Criteria for Septal infarct are no longer Present Nonspecific T wave abnormality, improved in Inferior leads QT has lengthened Confirmed by MD Kinsey Daniel ([id number]) on 08/29/2023 3:51:39 PM MUSE SYSTEM 08/29/2023 6:04 AM EDT 08/29/2023 3:51 PM EDT Archie Mcmanus MD ECG ORDERABLES MUSE SYSTEM * CRP, acute inflammation (08/29/2023 4:01 AM EDT) Pathologist [facility] CRP <3.0 <=4.9 mg/L [facility] Blood Venous Draw / Unknown 08/29/2023 4:01 AM EDT 08/29/2023 4:13 AM EDT Narrative Resulting Agency Comment Spec In Lab Eufemia Copeland MD CHEMISTRY ORDERABL ES [facility] [place] [address] * Sedimentation rate (08/29/2023 4:01 AM EDT) Pathologist [facility] Sed Rate 11 2 - 39 mm/hr [facility] Comment: Effective February 15, 2019 [...] MD HEMATOLOGY ORDERAB LES Performing Organization Address City/[facility]/ZIP Co de Phone Number [facility] [place] [address] * Green Tube HOLD (08/29/2023 4:01 AM EDT) Green Hold Sample in lab. [facility] Blood Venous Draw / Unknown 08/29/2023 4:01 AM EDT 08/29/2023 4:09 AM EDT Archie Mcmanus MD CHEMISTRY ORDERABLES Performing Organization Address City/[facility]/ZIP Co de Phone Number [facility] [place] [address] * Differential, Automated (08/29/2023 4:01 AM EDT) Neutrophils % 65.6 % [facility] LABORATORY Neutr Abs (ANC) 5.23 1.70 - 6.10 x10(3)/[facility] LABORATORY Lymphocytes % 21.4 % [facility]ORATORY Lymphocytes Abs 1.7 0.9 - 3.2 x10(3)/[facility] LABORATORY Monocytes % 8.5 % [facility]ORATORY Monocyte Abs 0.7 0.3 - 0.9 x10(3)/[facility] LABORATORY Eosinophils % 4.0 % [facility] Eosinophils Abs 0.3 0.0 - 0.4 x10(3)/[facility] LABORATORY Basophils % 0.4 % [facility] Basophils Abs 0.0 0.0 - 0.1 x10(3)/[facility] LABORATORY Immature Gran % 0.10 % [facility] Comment: Immature granulocytes(IG's)percentage and absolute count will include metamyelocytes, myelocytes, and promyelocytes. Blood smears from CBCs yielding IG's will be scanned manually for concordance. If this scan disagrees with the automated IG or if promyelocytes are noted, a manual differential will be performed. Shonda Gran Abs 0.01 0.00 - 0.04 x10(3)/[facility] LABORATORY Blood 08/29/2023 4:01 AM EDT 08/29/2023 4:08 AM EDT Narrative Resulting Agency Comment Spec In Lab Archie Mcmanus MD HEMATOLOGY ORDERABLE S [facility] [place] [address] * (ABNORMAL) Hemogram (08/29/2023 4:01 AM EDT) WBC 8.0 4.0 - 9.5 x10(3)/[facility] LABORATORY RBC 3.91(L) 4.00 - 5.21 x10(6)/[facility] LABORATORY Hemoglobin 12.6 11.7 - 15.5 g/dL [facility] Hematocrit 37.6 35.7 - 45.8 % [facility] MCV 96.2(H) 82.6 - 94.4 fL [facility] MCH 32.2(H) 27.1 - 32.0 pg [facility] MCHC 33.5 31.7 - 35.0 g/dL [facility] Platelets 197 145 - 357 x10(3)/[facility] LABORATORY RDWSD 46.7(H) 37.0 - 46.0 fL [facility] RDWCV 13.3 11.5 - 14.1 % [facility] MPV 10.4 7.6 - 12.9 [facility] LABORATORY nRBC % Auto 0.0 % [facility] nRBC Abs Auto 0.000 0.000 - 0.000 x10(3)/mcL [facility] Blood 08/29/2023 4:01 AM EDT 08/29/2023 4:08 AM EDT Narrative Resulting Agency Comment Spec In Lab Archie Mcmanus MD HEMATOLOGY ORDERABLE S Performing Organization Address [facility] Co de Phone Number [facility] [place] [address] * (ABNORMAL) Heparin (unfractionated) Level (08/29/2023 4:01 AM EDT) Heparin UFH Level 1.04(Crit ical) IU/mL [facility] Comment: Critical Result called by ?? BRIANAM CRITICAL Results read back by: ? jayson menon at 2023-08-29 04:34:33 Heparin (anti-Xa) levels should be determined in a plasma sample that has been drawn 6 hours after a dose change to approximate steady-state for continuous heparin infusions. Indication specific Heparin (anti-Xa) levels based on order set selection: Acute DVT or PE treatment: 0.3 ? 0.7 IU/mL Thrombosis Prevention (eg. atrial fibrillation, yuki-procedural bridging, mechanical valves): 0.3 ? 0.7 IU/mL Acute Coronary Syndrome: 0.3 ? 0.7 IU/mL Stroke Indications: 0.3 ? 0.5 IU/mL Ultra-low intensity (select indications in cardiac surgery): 0.1 ? 0.3 IU/mL Blood 08/29/2023 4:01 AM EDT 08/29/2023 4:08 AM EDT Narrative Resulting Agency Comment Spec In Lab Archie Mcmanus MD HEMATOLOGY ORDERABLE S Performing Organization Address [facility]/ZIP Co de Phone Number [facility] [place] [address] * (ABNORMAL) Basic Metabolic Panel (non-fasting) (08/29/2023 4:01 AM EDT) Glucose Lvl 106 65 - 199 mg/dL [facility] Comment:Diabetes: >=200 mg/d L plus symptoms BUN 24(H) 8 - 18 mg/dL [facility] Creatinine 1.18 0.70 - 1.20 mg/dL [facility] Sodium 141 135 - 145 mmol/L [facility] Potassium 3.5 3.5 - 5.0 mmol/L [facility] Comment: Please note: ??Patients with WBC >100,000 may have falsely elevated Potassium levels. ??For accurate Potassium quantification in these patients send serum separator tube (gold top) for subsequent determinations. ??Contact the Clinical Chemistry Laboratory if there are any questions. Chloride 107 98 - 107 mmol/L [facility] CO2 22 22 - 31 mmol/L [facility] Anion Gap 12 5 - 15 mmol/L [facility] Calcium 8.8 8.5 - 10.5 mg/dL [facility] Estimated GFR 55(L) >=60 mL/min/1. 73 m?? [facility] Comment: This patient's estimated GFR [...] and symptoms in addition to eGFR. Blood 08/29/2023 4:01 AM EDT 08/29/2023 4:08 AM EDT Narrative Resulting Agency Comment Spec In Lab Archie Mcmanus MD CHEMISTRY ORDERABLES [facility] [place] [address] * (ABNORMAL) Troponin (08/29/2023 12:31 AM EDT) Troponin-T HS 31(H) <=14 ng/L [facility] Comment: This patient's troponin T concentration [...] troponin value can be found in the [facility] Laboratory Test Catalog Troponin - [facility] Laboratory Test Catalog Reference: [place] Definition of Myocardial Infarction. Journal of the [place] [employer] 2018;72:5755-5538 Blood 08/29/2023 12:3 1 AM EDT 08/29/2023 12:35 AM EDT Narrative Resulting Agency Comment Spec In Lab Archie Mcmanus MD CHEMISTRY ORDERABLES [facility] [place] [address] * Differential, Automated (08/28/2023 9:07 PM EDT) Pathologist [facility] Neutrophils % 59.8 % [facility] Neutr Abs (ANC) 4.06 1.70 - 6.10 x10(3)/mcL [facility] Lymphocytes % 28.8 % [facility] Lymphocytes Abs 2.0 0.9 - 3.2 x10(3)/[facility] LABORATORY Monocytes % 5.7 % [facility] Monocyte Abs 0.4 0.3 - 0.9 x10(3)/[facility] LABORATORY Eosinophils % 4.6 % [facility] Eosinophils Abs 0.3 0.0 - 0.4 x10(3)/[facility] LABORATORY Basophils % 0.7 % [facility] Basophils Abs 0.0 0.0 - 0.1 x10(3)/[facility] LABORATORY Immature Gran % 0.40 % [facility] Comment: Immature granulocytes(IG's)percentage and absolute count will include metamyelocytes, myelocytes, and promyelocytes. Blood smears from CBCs yielding IG's will be scanned manually for concordance. If this scan disagrees with the automated IG or if promyelocytes are noted, a manual differential will be performed. Shonda Gran Abs 0.03 0.00 - 0.04 x10(3)/[facility] LABORATORY Blood 08/28/2023 9:07 PM EDT 08/28/2023 9:12 PM EDT Narrative Resulting Agency Comment Spec In Lab Archie Mcmanus MD HEMATOLOGY ORDERABLE S Performing Organization Address City/State/[facility] Co de Phone Number [facility] [place] [address] * (ABNORMAL) Hemogram (08/28/2023 9:07 PM EDT) WBC 6.8 4.0 - 9.5 x10(3)/[facility] LABORATORY RBC 4.39 4.00 - 5.21 x10(6)/[facility] LABORATORY Hemoglobin 14.1 11.7 - 15.5 g/dL [facility] Hematocrit 42.2 35.7 - 45.8 % [facility] MCV 96.1(H) 82.6 - 94.4 fL [facility] MCH 32.1(H) 27.1 - 32.0 pg [facility] MCHC 33.4 31.7 - 35.0 g/dL [facility] Platelets 234 145 - 357 x10(3)/[facility] LABORATORY RDWSD 47.3(H) 37.0 - 46.0 fL [facility] RDWCV 13.3 11.5 - 14.1 % [facility] MPV 10.3 7.6 - 12.9 [facility] LABORATORY nRBC % Auto 0.0 % [facility] nRBC Abs Auto 0.000 0.000 - 0.000 x10(3)/[facility] LABORATORY Blood 08/28/2023 9:07 PM EDT 08/28/2023 9:12 PM EDT Narrative Resulting Agency Comment Spec In Lab Archie Mcamnus MD HEMATOLOGY ORDERABLE S Performing Organization Address City/State/[facility] Co de Phone Number [facility] [place] [phone] * (ABNORMAL) Heparin (unfractionated) Level (08/28/2023 9:07 PM EDT) Heparin UFH Level 1.90(Crit ical) IU/mL [facility] Comment: Critical Result called by ?? JONI CRITICAL Results read back by: ? katalina mirza at 2023-08-28 21:43:34 Heparin (anti-Xa) levels should be determined in a plasma sample that has been drawn 6 hours after a dose change to approximate steady-state for continuous heparin infusions. Indication specific Heparin (anti-Xa) levels based on order set selection: Acute DVT or PE treatment: 0.3 ? 0.7 IU/mL Thrombosis Prevention (eg. atrial fibrillation, yuki-procedural bridging, mechanical valves): 0.3 ? 0.7 IU/mL Acute Coronary Syndrome: 0.3 ? 0.7 IU/mL Stroke Indications: 0.3 ? 0.5 IU/mL Ultra-low intensity (select indications in cardiac surgery): 0.1 ? 0.3 IU/mL Blood 08/28/2023 9:07 PM EDT 08/28/2023 9:12 PM EDT Narrative Resulting Agency Comment Spec In Lab Archie Mcmanus MD HEMATOLOGY ORDERABLE S [facility] [place] [address] * Lipid Panel (Reflex Direct LDL) (08/28/2023 9:07 PM EDT) Chol, Total 203 mg/dL [facility] Comment: Desirable: ? <200 mg/dL Borderline High: 200-239 mg/dL Higher: ?>gb=656 mg/dL Triglycerides 146 mg/dL [facility] Comment: Normal: ?<150 mg/dL Borderline High: 150-199 mg/dL High: ?200-499 mg/dL Very High: ? >ko=050 mg/dL HDL 52 mg/dL [facility] Comment: Females: High Risk: <50 mg/dL Males: High Risk: <40 mg/dL LDL Cholesterol 122 mg/dL [facility] Comment: Desirable: ? <100 mg/dL Above Desirable: 100-129 mg/dL Borderline High: 130-159 mg/dL High: ?160-189 mg/dL Very High: ? >as=026 mg/dL Lipid Interpretation See Note [facility] Comment: It is important to [...] ACC/AHA Guidelines (most recently Ysabel et al. [facility] 12/09/21): For individuals with atherosclerotic cardiovascular disease (ASCVD)or LDL >ch=500 mg/dL, use a high-intensity statin (40-80 mg [...] In Lab Archie Mcmanus MD CHEMISTRY ORDERABLES [facility] [place] [address] * (ABNORMAL) pro-Brain Natriuretic Peptide (08/28/2023 9:07 PM EDT) [facility] Signature ProBNP 2,854(H) <=124 pg/mL [facility] Blood 08/28/2023 9:07 PM EDT 08/28/2023 9:12 PM EDT Narrative Resulting Agency Comment Spec In Lab Archie Mcmanus MD CHEMISTRY ORDERABLES Performing Organization Address City/[facility]/ZIP Co de Phone Number [facility] [place] [address] * (ABNORMAL) Troponin (08/28/2023 9:07 PM EDT) Troponin-T HS 31(H) <=14 ng/L [facility] Comment: This patient's troponin T concentration [...] troponin value can be found in the [facility] Laboratory Test Catalog Troponin - [facility] Laboratory Test Catalog Reference: [place] Definition of Myocardial Infarction. Journal of the [place] [employer] 2018;72:9047-1151 Blood 08/28/2023 9:07 PM EDT 08/28/2023 9:12 PM EDT Narrative Resulting Agency Comment Spec In Lab Archie Mcmanus MD CHEMISTRY ORDERABLES [facility] [place] [address] * (ABNORMAL) Hepatic Function Panel (08/28/2023 9:07 PM EDT) Total Protein 6.6 6.1 - 8.0 g/dL [facility] Albumin 4.2 3.2 - 5.2 g/dL [facility] AST 32(H) 0 - 30 unit/L [facility] ALT 28 0 - 30 unit/L [facility] Alk Phos 52 35 - 105 unit/L [facility] Total Bilirubin 0.6 0.2 - 1.3 mg/dL [facility] Bili, Direct 0.2 0.0 - 0.3 mg/dL [facility] Blood 08/28/2023 9:07 PM EDT 08/28/2023 9:12 PM EDT Narrative Resulting Agency Comment Spec In Lab Archie Mcmanus MD CHEMISTRY ORDERABLES [facility] [place] [address] * (ABNORMAL) Basic Metabolic Panel (non-fasting) (08/28/2023 9:07 PM EDT) [facility] Glucose Lvl 95 65 - 199 mg/dL [facility] Comment:Diabetes: >=200 mg/d L plus symptoms BUN 22(H) 8 - 18 mg/dL [facility] Creatinine 1.13 0.70 - 1.20 mg/dL [facility] Sodium 140 135 - 145 mmol/L [facility] Potassium 3.5 3.5 - 5.0 mmol/L [facility] Comment: Please note: ??Patients with WBC >100,000 may have falsely elevated Potassium levels. ??For accurate Potassium quantification in these patients send serum separator tube (gold top) for subsequent determinations. ??Contact the Clinical Chemistry Laboratory if there are any questions. Chloride 105 98 - 107 mmol/L [facility] CO2 21(L) 22 - 31 mmol/L [facility] Anion Gap 14 5 - 15 mmol/L [facility] Calcium 9.3 8.5 - 10.5 mg/dL [facility] Estimated GFR 58(L) >=60 mL/min/1. 73 m?? [facility] Comment: This patient's estimated GFR [...] and symptoms in addition to eGFR. Blood 08/28/2023 9:07 PM EDT 08/28/2023 9:12 PM EDT Narrative Resulting Agency Comment Spec In Lab Archie Mcmanus MD CHEMISTRY ORDERABLES Performing Organization Address City/[facility]/ZIP Co de Phone Number [facility] [place] [address] * Magnesium (08/28/2023 9:07 PM EDT) Magnesium 1.05 0.69 - 1.07 mmol/L [facility] Blood 08/28/2023 9:07 PM EDT 08/28/2023 9:12 PM EDT Narrative Resulting Agency Comment Spec In Lab Archie Mcmanus MD CHEMISTRY ORDERABLES Performing Organization Address City/[facility]/ZIP Co de Phone Number [facility] [place] [address] documented in this encounter Visit Diagnoses Diagnosis Paresthesia of hand, bilateral SVT (supraventricular tachycardia) Other specified cardiac dysrhythmias Acute on chronic heart failure with preserved ejection fraction Non-ST elevation myocardial infarction (NSTEMI) Acute myocardial infarction, subendocardial infarction, episode of care unspecified NSTEMI (non-ST elevated myocardial infarction) Acute myocardial infarction, subendocardial infarction, episode of care unspecified Heart failure with preserved ejection fraction, unspecified HF chronicity Hypokalemia Hypopotassemia NSTEMI (non-ST elevated myocardial infarction) Acute myocardial infarction, subendocardial infarction, episode of care unspecified documented in this encounter Admitting Diagnoses Diagnosis NSTEMI (non-ST elevated myocardial infarction) Acute myocardial infarction, subendocardial infarction, episode of care unspecified documented in this encounter Administered Medications Inactive Administered Medications - up to 3 most recent administrations Medication Order MAR Action Action Date Dose Rate Site amLODIPine (Norvasc) tablet 2.5 mg 2.5 mg, Oral, DAILY, First dose on Wed08/30/23 at 1545, Until Discontinued, Routine Given 09/07/2023 9:22 AM EDT 2.5 mg Given 09/06/2023 8:05 AM EDT 2.5 mg Given 09/05/2023 8:38 AM EDT 2.5 mg apixaban (Eliquis) tablet 5 mg 5 mg, Oral, 2 TIMES DAILY, First dose on Wed08/30/23 at 1800, Until Discontinued, Anticoagulant, Routine, apixaban (Eliquis) Indication: Non-Valvular Atrial Fibrillation Given 09/10/2023 8:22 AM EDT 5 mg Given 09/09/2023 8:40 PM EDT 5 mg Given 09/09/2023 8:18 AM EDT 5 mg aspirin chewable tablet 81 mg 81 mg, Oral, DAILY, First dose on Wed08/29/23 at 0900, Until Discontinued, Routine Given 09/10/2023 8:21 AM EDT 81 mg Given 09/09/2023 8:18 AM EDT 81 mg Given 09/08/2023 8:39 AM EDT 81 mg atorvastatin (Lipitor) tablet 40 mg 40 mg, Oral, EVERY EVENING, First dose on [facility] 08/28/23 at 2145, Until Discontinued, Routine Given 09/09/2023 4:08 PM EDT 40 mg Given 09/08/2023 5:07 PM EDT 40 mg Given 09/07/2023 4:56 PM EDT 40 mg clopidogreL (Plavix) tablet 75 mg 75 mg, Oral, DAILY, First dose on Wed08/29/23 at 0900, Until Discontinued, Routine Given 08/30/2023 8:29 AM EDT 75 mg Given 08/29/2023 8:22 AM EDT [address] (Cymbalta) capsule 60 mg 60 mg, Oral, DAILY, First dose on Wed08/29/23 at 0900, Until Discontinued, Routine Given 09/10/2023 8:22 AM EDT 60 mg Given 09/09/2023 8:19 AM EDT 60 mg Given 09/08/2023 8:39 AM EDT 60 mg furosemide (Lasix) (10 mg/mL) injection 80 mg 80 mg, Intravenous, ONCE, 1 dose, On Wed08/29/23 at 1200 Given 08/29/2023 11:31 AM EDT 80 mg furosemide (Lasix) (10 mg/mL) injection 80 mg 80 mg, Intravenous, ONCE, 1 dose, On Wed08/30/23 at 0915 Given 08/30/2023 8:29 AM EDT 80 mg furosemide (Lasix) (10 mg/mL) injection 80 mg 80 mg, Intravenous, ONCE, 1 dose, On Wed08/30/23 at 1730 Given 08/30/2023 4:55 PM EDT 80 mg furosemide (Lasix) (10 mg/mL) injection 80 mg 80 mg, Intravenous, ONCE, 1 dose, On Wed08/31/23 at 1345 Given 08/31/2023 1:25 PM EDT 80 mg gabapentin (Neurontin) capsule 600 mg 600 mg, Oral, NIGHTLY, First dose on Wed08/29/23 at 2100, Until Discontinued, Routine Given 09/09/2023 8:40 PM EDT 600 mg Given 09/08/2023 9:00 PM EDT 600 mg Given 09/07/2023 9:04 PM EDT 600 mg heparin (porcine) 25,000 unit/500 mL (50 unit/mL) infusion 1 dose, Starting on 08/28/23 at 2038, Until Wed08/28/23 at 2030, Samantha Patino: cabinet override heparin (porcine) 50 units/mL in dextrose 5% 500 mL infusion 0-5,000 Units/hr (0-100 mL/hr), Intravenous, CONTINUOUS, Starting on 08/28/23 at 2145, Until Wed08/30/23 at 1735, Begin infusion at 1,000 units per hr (12 units/kg/hr). Maximum initial infusion rate is 1,000 units/hr. Infusion doses are rounded to the nearest 50 units. Target Heparin UFH Level (anti-Xa activity) = 0.3 - 0.7 international unit/mL Start adjustment schedule 6 hours after starting infusion. If Heparin UFH Level is: - Less than 0.1 international unit/mL: Administer PRN bolus and increase rate by 400 units per hr (4 units/kg/hr) - 0.1 - 0.19 international unit/mL: Administer PRN bolus and increase rate by 200 units per hr (2 units/kg/hr) - 0.2 - 0.29 international unit/mL: NO BOLUS and increase rate by 200 units per hr (2 units/kg/hr) - 0.3 - 0.7 international unit/mL: No change - 0.71 - 0.79 international unit/mL: NO BOLUS and decrease rate by 100 units per hr (1 units/kg/hr) - 0.8 - 0.99 international unit/mL: NO BOLUS and decrease rate by 200 units per hr (2 units/kg/hr) - Greater than or equal to 1.00 international unit/mL: Hold infusion for 60 minutes then decrease rate by 300 units per hour (3 units/kg/hr) Obtain Heparin UFH Level 6 hours after initiating heparin. Then 6 hours after each dose adjustment. When 2 consecutive Heparin UFH Level within target range of 0.3 - 0.7 international unit/mL, change Heparin UFH Level to once every 24 hours with A.M. labs while on heparin. RN to order required Heparin UFH Level - Per Protocol, Routine Rate/Dose Verify 08/29/2023 8:01 PM EDT 400 Units/hr 8 mL/hr Rate/Dose Verify 08/29/2023 1:07 PM EDT 400 Units/hr 8 mL/ hr Rate/Dose Verify 08/29/2023 6:00 AM EDT 400 Units/hr 8 mL/ hr iodixanoL (Visipaque) (320 mg/mL) injection solution 0-200 mL 0-200 mL, Intravenous, ONCE PRN, 1 dose, Starting on 09/05/23 at 1625, Until 09/05/23 at 1625, Per Protocol, Radiology Contrast, Routine Given 09/05/2023 4:25 PM EDT 100 mLs ipratropium-albuteroL (Duoneb) 0.5 mg-3 mg(2.5 mg base)/3 mL nebulizer solution 3 mL 3 mL, Nebulization, 4 TIMES DAILY PRN, Starting on Wed08/29/23 at 0549, Until Wed09/10/23 at 1932, Wheezing, Routine isosorbide mononitrate CR (Imdur) tablet 30 mg 30 mg, Oral, EVERY MORNING, First dose on Wed09/03/23 at 0400, Until Discontinued, DO NOT CRUSH OR OPEN, Routine Given 09/03/2023 3:28 AM EDT 30 mg LORazepam (Ativan) tablet 0.5 mg 0.5 mg, Oral, EVERY 6 HOURS PRN, Starting on Wed09/03/23 at 1049, Until Wed09/10/23 at 1932, Nausea, Vomiting, Routine Given 09/06/2023 8:04 AM EDT 0.5 mg Given 09/03/2023 6:51 PM EDT 0.5 mg Given 09/03/2023 10:53 AM EDT 0.5 mg melatonin tablet 3 mg 3 mg, Oral, NIGHTLY PRN, Starting on Wed08/28/23 at 2049, Until Wed09/10/23 at 1932, Sleep, Sleep, Routine Given 09/09/2023 8:40 PM EDT 3 mg Given 09/08/2023 9:01 PM EDT 3 mg Given 09/07/2023 9:08 PM EDT 3 mg metOLazone (Zaroxolyn) tablet 2.5 mg 2.5 mg, Oral, ONCE, 1 dose, On Wed09/02/23 at 1600, Routine Given 09/02/2023 3:38 PM EDT 2.5 mg miconazole nitrate (Remedy Phytoplex) 2 % ointment Topical (Top), 2 TIMES DAILY, First dose on Wed09/02/23 at 1130, Until Discontinued Given 09/08/2023 8:41 AM EDT 1 g Given 09/07/2023 9:09 PM EDT Given 09/07/2023 9:24 AM EDT 1 g morphine (2 mg/mL) injection 2 mg 2 mg, Intravenous, ONCE, 1 dose, On [place] 09/02/23 at 0400, Routine Given 09/02/2023 3:14 AM EDT 2 mg oxyCODONE (Roxicodone) tablet 5 mg 5 mg, Oral, ONCE, 1 dose, On 08/29/23 at 1600, Routine Given 08/29/2023 3:21 PM EDT 5 mg pantoprazole EC (Protonix) tablet 40 mg 40 mg, Oral, DAILY, First dose on 08/29/23 at 0900, Until Discontinued Given 09/10/2023 8:22 AM EDT 40 mg Given 09/09/2023 8:17 AM EDT 40 mg Given 09/08/2023 8:40 AM EDT 40 mg perflutren protein-A microsphers (Optison) (0.22 mg/mL) injection 0.5 mL 0.5 mL, Intravenous, ONCE PRN, 1 dose, Starting on Wed08/29/23 at 1135, Until Wed08/29/23 at 1002, for enhancement of sub-optimal echo images, Echo Lab (Intra-Procedure), Routine Given 08/29/2023 10:02 AM EDT 1.5 mLs polyethylene glycoL (Miralax) packet 17 g 17 g, Oral, DAILY PRN, Starting on 08/29/23 at 1459, Until Wed08/30/23 at 1210, Constipation, Routine Given 08/29/2023 4:34 PM EDT 17 g polyethylene glycoL (Miralax) packet 17 g 17 g, Oral, 2 TIMES DAILY PRN, Starting on Wed08/30/23 at 1208, Until Wed09/10/23 at 1932, Constipation, Routine Given 08/30/2023 12:23 PM EDT 17 g potassium chloride ER (Klor-Con M) crystal tablet 40 mEq 40 mEq, Oral, ONCE, 1 dose, On Wed08/29/23 at 1200, potassium chloride ER particle/crystal tablets (Klor-Con M) may be broken in half and each half swallowed separately. Tablets can be dissolved in ~4 ounces of water; allow ~2 minutes to dissolve, stir well and drink immediately. Do not crush, chew, or suck on tablet., Routine Given 08/29/2023 11:31 AM EDT 40 mEq potassium chloride ER (Klor-Con M) crystal tablet 40 mEq 40 mEq, Oral, ONCE, 1 dose, On Wed08/29/23 at 2100, potassium chloride ER particle/crystal tablets (Klor-Con M) may be broken in half and each half swallowed separately. Tablets can be dissolved in ~4 ounces of water; allow ~2 minutes to dissolve, stir well and drink immediately. Do not crush, chew, or suck on tablet., Routine Given 08/29/2023 9:00 PM EDT 40 mEq potassium chloride ER (Klor-Con M) crystal tablet 40 mEq 40 mEq, Oral, ONCE, 1 dose, On Wed09/03/23 at 0645, 20 mEq tablet may be dissolved in water for administration potassium chloride ER particle/crystal tablets (Klor-Con M) may be broken in half and each half swallowed separately. Tablets can be dissolved in ~4 ounces of water; allow ~2 minutes to dissolve, stir well and drink immediately. Do not crush, chew, or suck on tablet., Routine Given 09/03/2023 5:58 AM EDT 40 mEq potassium chloride ER (Klor-Con M) crystal tablet 40-60 mEq 40-60 mEq, Oral, PER POTASSIUM PROTOCOL, Starting on Wed09/04/23 at 0833, Until Wed09/10/23 at 1932, potassium replenishment, DO NOT CRUSH OR OPEN For serum potassium (mMol/L) of 3.3-3.8 administer Potassium oral liquid or ER tablets 40 mEq. For serum potassium (mMol/L) of 2.8-3.2 administer Potassium oral liquid or ER tablets 60 mEq. For serum potassium less than 2.8 Call provider for potassium dosing. potassium chloride ER particle/crystal tablets (Klor-Con M) may be broken in half and each half swallowed separately. Tablets can be dissolved in ~4 ounces of water; allow ~2 minutes to dissolve, stir well and drink immediately. Do not crush, chew, or suck on tablet., Routine Given 09/09/2023 8:40 PM EDT 40 mEq Given 09/08/2023 3:46 AM EDT 40 mEq Given 09/06/2023 6:18 AM EDT 40 mEq potassium chloride ER (Klor-Con M) crystal tablet 60 mEq 60 mEq, Oral, ONCE, 1 dose, On 09/04/23 at 0615, 20 mEq tablet may be dissolved in water for administration potassium chloride ER particle/crystal tablets (Klor-Con M) may be broken in half and each half swallowed separately. Tablets can be dissolved in ~4 ounces of water; allow ~2 minutes to dissolve, stir well and drink immediately. Do not crush, chew, or suck on tablet., Routine Given 09/04/2023 5:48 AM EDT 60 mEq ranolazine ER (Ranexa) tablet 1,000 mg 1,000 mg, Oral, 2 TIMES DAILY, First dose on 08/28/23 at 2145, Until Discontinued, DO NOT CRUSH OR OPEN. Baseline EKG required before administration., Routine, Has baseline EKG been obtained? Yes Given 09/02/2023 8:59 AM EDT 1,000 mg Given 09/01/2023 8:10 PM EDT 1,000 mg Given 09/01/2023 8:44 AM EDT 1,000 mg ranolazine ER (Ranexa) tablet 500 mg 500 mg, Oral, 2 TIMES DAILY, First dose (after last modification) on [place] 09/02/23 at 2100, Until Discontinued, DO NOT CRUSH OR OPEN. Baseline EKG required before administration., Routine, Has baseline EKG been obtained? Yes Given 09/10/2023 8:28 AM EDT 500 mg Given 09/09/2023 8:39 PM EDT 500 mg Given 09/09/2023 8:19 AM EDT 500 mg rOPINIRole (Requip) tablet 2 mg 2 mg, Oral, 2 TIMES DAILY, First dose on 08/28/23 at 2145, Until Discontinued, Routine Given 09/10/2023 8:21 AM EDT 2 mg Given 09/09/2023 8:39 PM EDT 2 mg Given 09/09/2023 8:17 AM EDT 2 mg sodium chloride 0.9 % (flush) (BD PosiFlush Normal Saline 0.9) flush 5 mL 5 mL, Intravenous, 2 TIMES DAILY, First dose on 08/28/23 at 2145, Until Discontinued, Routine Given 09/10/2023 8:29 AM EDT 5 mLs Given 09/09/2023 8:41 PM EDT 5 mLs Given 09/09/2023 8:23 AM EDT 5 mLs sodium chloride 0.9 % (flush) (BD PosiFlush Normal Saline 0.9) flush 5-20 mL 5-20 mL, Intravenous, EVERY 1 MIN PRN, Starting on 08/28/23 at 2049, Until Wed09/10/23 at 1932, flush, Flush pertains to all indwelling lines. Flush per protocol found in the job aid using the link provided on this medication record., Routine Given 08/28/2023 9:32 PM EDT 5 mLs spironolactone (Aldactone) tablet 25 mg 25 mg, Oral, DAILY, First dose on 08/29/23 at 0900, Until Discontinued, DO NOT SPLIT, CRUSH OR OPEN, Routine Given 09/10/2023 8:22 AM EDT 25 mg Given 09/09/2023 8:19 AM EDT 25 mg Given 09/08/2023 8:40 AM EDT 25 mg SUMAtriptan (Imitrex) tablet 25 mg 25 mg, Oral, ONCE, 1 dose, On 09/03/23 at 1845, Maximum dose: 200mg in 24 hours, Routine Given 09/03/2023 6:33 PM EDT 25 mg topiramate (Topamax) tablet 100 mg 100 mg, Oral, NIGHTLY, First dose on 08/28/23 at 2145, Until Discontinued, Routine Given 09/09/2023 8:38 PM EDT 100 mg Given 09/08/2023 8:59 PM EDT 100 mg Given 09/07/2023 9:04 PM EDT 100 mg torsemide (Demadex) tablet 20 mg 20 mg, Oral, DAILY, First dose on Wed09/06/23 at 0900, Until Discontinued, Routine Given 09/07/2023 9:22 AM EDT 20 mg Given 09/06/2023 8:04 AM EDT 20 mg torsemide (Demadex) tablet 40 mg 40 mg, Oral, 2 TIMES DAILY, First dose on 08/29/23 at 2100, Until Discontinued, Routine Given 08/29/2023 9:00 PM EDT 40 mg torsemide (Demadex) tablet 40 mg 40 mg, Oral, ONCE, 1 dose, On Wed09/02/23 at 1530, Routine Given 09/02/2023 2:57 PM EDT 40 mg torsemide (Demadex) tablet 40 mg 40 mg, Oral, 2 TIMES DAILY, First dose (after last modification) on Wed09/07/23 at 2115, Until Discontinued, Routine Given 09/10/2023 8:22 AM EDT 40 mg Given 09/09/2023 4:08 PM EDT 40 mg Given 09/09/2023 8:18 AM EDT 40 mg torsemide (Demadex) tablet 80 mg 80 mg, Oral, DAILY, First dose on Wed09/01/23 at 1945, Until Discontinued, Routine Given 09/02/2023 8:52 AM EDT 80 mg Given 09/01/2023 8:04 PM EDT 80 mg torsemide (Demadex) tablet 80 mg 80 mg, Oral, ONCE, 1 dose, On Wed09/02/23 at 1800, Routine Given 09/02/2023 5:40 PM EDT 80 mg zolpidem (Ambien) tablet 5 mg 5 mg, Oral, NIGHTLY PRN, Starting on Wed09/03/23 at 2125, Until Wed09/10/23 at 1932, Sleep, Give melatonin first and if after 30 minutes it is ineffective then give zolpidem, Routine Given 09/09/2023 8:40 PM EDT 5 mg Given 09/08/2023 9:01 PM EDT 5 mg Given 09/07/2023 9:08 PM EDT 5 mg documented in this encounter Active and Recently Administered Medications Times are shown in EDT. Scheduled Medication Order 09/08/2023 09/09/2023 09/10/2023 apixaban (Eliquis) tablet 5 mg 5 mg, Oral, 2 TIMES DAILY, First dose on Wed08/30/23 at 1800, Until Discontinued, Anticoagulant, Routine, apixaban (Eliquis) Indication: Non-Valvular Atrial Fibrillation 0839 (Given - Provider: Chayo Painting RN)2056 (Given - Provider: Jo Ann Bello RN) 08 (Given - Provider: Tim Cardoza RN)2039 (Given - Provider: Jo Ann Bello RN) 08 (Given - Provider: Tim Cardoza RN) aspirin chewable tablet 81 mg 81 mg, Oral, DAILY, First dose on 08/29/23 at 0900, Until Discontinued, Routine 0839 (Given - Provider: Chayo Painting RN) 0818 (Given - Provider: Tim Cardoza RN) 0821 (Given - Provider: Tmi Cardoza RN) atorvastatin (Lipitor) tablet 40 mg 40 mg, Oral, EVERY EVENING, First dose on 08/28/23 at 2145, Until Discontinued, Routine 1707 (Given - Provider: Chayo Painting RN) 1608 (Given - Provider: Tim Cardoza RN) 1700 (Due) DULoxetine DR (Cymbalta) capsule 60 mg 60 mg, Oral, DAILY, First dose on 08/29/23 at 0900, Until Discontinued, Routine 0839 (Given - Provider: Chayo Painting RN) 0819 (Given - Provider: Tim Cardoza RN) 0822 (Given - Provider: Tim Cardoza RN) gabapentin (Neurontin) capsule 600 mg 600 mg, Oral, NIGHTLY, First dose on 08/29/23 at 2100, Until Discontinued, Routine 2100 (Given - Provider: Jo Ann Bello RN) 2040 (Given - Provider: Jo Ann Bello RN) miconazole nitrate (Remedy Phytoplex) 2 % ointment Topical (Top), 2 TIMES DAILY, First dose on [place] 09/02/23 at 1130, Until Discontinued 0841 (Given - Provider: Chayo Painting RN)2100 (Not Given - Provider: Jo Ann Bello RN - Reason: Patient/family refused) 0822 (Not Given - Provider: Tim Cardoza RN - Reason: Patient/family refused)2100 (Not Given - Provider: Jo Ann Bello RN - Reason: Patient/family refused) 0900 (Not Given - Provider: Tim Cardoza RN - Reason: Patient/family refused) pantoprazole EC (Protonix) tablet 40 mg 40 mg, Oral, DAILY, First dose on 08/29/23 at 0900, Until Discontinued 0840 (Given - Provider: Chayo Painting RN) 0817 (Given - Provider: Tim Cardoza RN) 0822 (Given - Provider: Tim Cardoza RN) ranolazine ER (Ranexa) tablet 500 mg 500 mg, Oral, 2 TIMES DAILY, First dose (after last modification) on [place] 09/02/23 at 2100, Until Discontinued, DO NOT CRUSH OR OPEN. Baseline EKG required before administration., Routine, Has baseline EKG been obtained? Yes 0839 (Given - Provider: Chayo Painting RN)2099 (Given - Provider: Jo Ann Bello RN) 08 (Given - Provider: Tim Cardoza RN)2038 (Given - Provider: Jo Ann Bello RN) 08 (Given - Provider: Tim Cardoza RN) rOPINIRole (Requip) tablet 2 mg 2 mg, Oral, 2 TIMES DAILY, First dose on 08/28/23 at 2145, Until Discontinued, Routine 0839 (Given - Provider: Chayo Painting RN)2058 (Given - Provider: Jo Ann Bello RN) 08 (Given - Provider: Tim Cardoza RN)2038 (Given - Provider: Jo Ann Bello RN) 0821 (Given - Provider: Tim Cardoza RN) sodium chloride 0.9 % (flush) (BD PosiFlush Normal Saline 0.9) flush 5 mL 5 mL, Intravenous, 2 TIMES DAILY, First dose on 08/28/23 at 2145, Until Discontinued, Routine 0842 (Given - Provider: Chayo Painting RN)2100 (Given - Provider: Jo Ann Bello RN) 08 (Given - Provider: Tim Cardoza RN)2040 (Given - Provider: Jo Ann Bello RN) 0829 (Given - Provider: Tim Cardoza, ERWIN) spironolactone (Aldactone) tablet 25 mg 25 mg, Oral, DAILY, First dose on [place] 08/29/23 at 0900, Until Discontinued, DO NOT SPLIT, CRUSH OR OPEN, Routine 0840 (Given - Provider: Chayo Painting RN) 0819 (Given - Provider: Tim Cardoza RN) 0822 (Given - Provider: Tim Cardoza RN) topiramate (Topamax) tablet 100 mg 100 mg, Oral, NIGHTLY, First dose on Wed08/28/23 at 2145, Until Discontinued, Routine 2058 (Given - Provider: Jo Ann Bello RN) 2037 (Given - Provider: Jo Ann Bello, ERWIN) torsemide (Demadex) tablet 40 mg 40 mg, Oral, 2 TIMES DAILY, First dose (after last modification) on Wed09/07/23 at 2115, Until Discontinued, Routine 0839 (Given - Provider: Chayo Painting RN)1707 (Given - Provider: Chayo Painting RN) 0818 (Given - Provider: Tim Cardoza, ERWIN)1608 (Given - Provider: Tim Cardoza, ERWIN) 0822 (Given - Provider: Tim Cardoza RN)1700 (Due) PRN Medication Order 09/08/2023 09/09/2023 09/10/2023 ipratropium-albuteroL (Duoneb) 0.5 mg-3 mg(2.5 mg base)/3 mL nebulizer solution 3 mL 3 mL, Nebulization, 4 TIMES DAILY PRN, Starting on Wed08/29/23 at 0549, Until Wed09/10/23 at 1932, Wheezing, Routine lidocaine (Xylocaine) 1% (10 mg/mL) injection 3 mg 3 mg (0.3 mL), Subcutaneous, ONCE PRN, 1 dose, Starting on Wed08/28/23 at 204, Until Wed09/10/23 at 1932, for discomfort with PIV insertion, Routine LORazepam (Ativan) tablet 0.5 mg 0.5 mg, Oral, EVERY 6 HOURS PRN, Starting on Wed09/03/23 at 1049, Until Wed09/10/23 at 1932, Nausea, Vomiting, Routine melatonin tablet 3 mg 3 mg, Oral, NIGHTLY PRN, Starting on Wed08/28/23 at 2048, Until Wed09/10/23 at 193, Sleep, Sleep, Routine 2100 (Given - Provider: Jo Ann Bello, ERWIN) 2039 (Given - Provider: Jo Ann Bello, ERWIN) nitroGLYcerin (Nitrostat) disintegrating tablet 0.4 mg 0.4 mg, Sublingual, EVERY 5 MIN PRN, Starting on Wed08/28/23 at 204, Until Wed09/10/23 at 193, Chest pain, SL nitroglycerin may be repeated every 5 minutes as needed up to 3 doses, Routine polyethylene glycoL (Miralax) packet 17 g 17 g, Oral, 2 TIMES DAILY PRN, Starting on 08/30/23 at 1208, Until Wed09/10/23 at 1932, Constipation, Routine potassium chloride ER (Klor-Con M) crystal tablet 40-60 mEq 40-60 mEq, Oral, PER POTASSIUM PROTOCOL, Starting on 09/04/23 at 0833, Until Wed09/10/23 at 193, potassium replenishment, DO NOT CRUSH OR OPEN For serum potassium (mMol/L) of 3.3-3.8 administer Potassium oral liquid or ER tablets 40 mEq. For serum potassium (mMol/L) of 2.8-3.2 administer Potassium oral liquid or ER tablets 60 mEq. For serum potassium less than 2.8 Call provider for potassium dosing. potassium chloride ER particle/crystal tablets (Klor-Con M) may be broken in half and each half swallowed separately. Tablets can be dissolved in ~4 ounces of water; allow ~2 minutes to dissolve, stir well and drink immediately. Do not crush, chew, or suck on tablet., Routine 345 (Given - Provider: Guilherme Medina RN) 2039 (Given - Provider: Jo Ann Bello RN) sodium chloride 0.9 % (flush) (BD PosiFlush Normal Saline 0.9) flush 5-20 mL 5-20 mL, Intravenous, EVERY 1 MIN PRN, Starting on Wed08/28/23 at 204, Until Wed09/10/23 at 193, flush, Flush pertains to all indwelling lines. Flush per protocol found in the job aid using the link provided on this medication record., Routine zolpidem (Ambien) tablet 5 mg 5 mg, Oral, NIGHTLY PRN, Starting on Wed09/03/23 at 2125, Until Wed09/10/23 at 193, Sleep, Give melatonin first and if after 30 minutes it is ineffective then give zolpidem, Routine 2100 (Given - Provider: Jo Ann Bello RN) 2039 (Given - Provider: Jo Ann Bello, ERWIN) documented in this encounter Care Teams Transportation Dispatcher Relationship Specialty Start Date End Date Polo Pearce PA [address] [place] [address] PCP - General Internal Medicine 06/09/21 documented as of this encounter
--- OUTSIDE RECORDS SUMMARY | 2023-09-20 14:29 | XMS_ITS | Encounter Summary ---
Author Organization [facility] Address [facility] [address] Care Team Providers Care Asian Studies Program Chair Name Role Phone Polo Pearce Primary Care Provider [phone] Encounter Details Date Type Department Care Team (Latest Contact Info) Description 07/26/2023 Travel Social History Tobacco Use Types Packs/Day Years Used Date Smoking Tobacco: Never Smokeless Tobacco: Never Alcohol Use Standard Drinks/Week Comments Never 0 (1 standard drink = 0.6 oz pur e alcohol) [facility] Utilities Answer Date Recorded In the past [...] place to sleep or slept in a nursing home (including now)? No 06/15/2023 [facility] Inpatient Questions Answer Date Recorded Does Anyone [...] AM EDT Tech [place] [address] Jose Cook 10/08/2023 9:30 AM EDT Office Visit [place] [address] MD [facility] [place] [address] 10/21/2023 10:30 AM EDT Appointment [place] [address] Mary Reyes [facility] [place] [address] 10/21/2023 11:30 AM EDT Appointment [place] [phone] Mary Reyes SOFTWARE ENGINEER KERNEL [facility] [place] [address] 10/21/2023 12:30 PM EDT Appointment [place] [address] Mary Reyes, [facility] [place] [address] 10/21/2023 1:30 PM EDT Appointment [place] [address] Mary Reyes, [facility] [place] [address] 10/21/2023 2:30 PM EDT Appointment [place] [address] Mary Reyes, [facility] [place] [address] 10/26/2023 4:00 PM EDT Office Visit Cardiology at [address] [phone] Jaspreet Kinsey MD [facility] [place] [address] 10/28/2023 9:00 AM EDT Office [place] [address] 10/29/2023 10:00 AM EDT Clinical [place] [address] 10/29/2023 10:15 AM EDT Procedure [place] [address] 11/01/2023 5:00 PM EDT Office Visit [place] [address] Selene Browning, PhD [facility] [place] [address] 11/22/2023 4:40 PM EDT Office Visit Cardiology at [address] [phone] Porsha Mcdaniels MD [facility] [place] [place] [address] 12/13/2023 10:00 AM EDT Clinical Support [place] [phone] [facility] [place] [address] documented as of this encounter Visit Diagnoses Not on filedocumented in this encounter Care Teams Asian Studies Program Chair Relationship Specialty Start Date End Date Polo Pearce PA [address] [place] [address] PCP - General Internal Medicine 06/09/21 documented as of this encounter
--- OUTSIDE RECORDS SUMMARY | 2023-09-20 14:29 | XMS_ITS | Encounter Summary ---
Author Organization [facility] [place] [address] Care Team Providers Care Tig Welder Name Role Phone Polo Pearce Primary Care Provider [phone] Reason for Referral * Diagnostic Test (Routine) - Closed Specialty Diagnoses / Procedures Referred By Contac t Referred To Contact Radiology Diagnoses Chest pain, unspecified type Procedures NM PET CT Cardiac Pharmacologic Stress CT Component Porsha Mcdaniels MD [facility] [place] [address] [place] [address] Referral ID Status Reason Start Date Expiration Date V isits Requested Visits Authorized [id number] Closed Specialty Service Requested 08/03/2023 10/01/2023 1 1 * Diagnostic Test (Routine) - Closed Specialty Diagnoses / Procedures Referred By Contac t Referred To Contact Radiology Diagnoses Chest pain, unspecified type Procedures NM PET CT Cardiac Pharmacologic Stress and Rest Porsha Mcdaniels MD [facility] [place] [address] [place] [address] Referral ID Status Reason Start Date Expiration Date V isits Requested Visits Authorized [id number] Closed Specialty Service Requested 08/03/2023 10/01/2023 1 1 * Diagnostic Test (Routine) - New Request Specialty Diagnoses / Procedures Referred By Contac t Referred To Contact Cardiology Diagnoses Chest pain, unspecified type Procedures Nuclear Pharmacologic Stress Cardiology (PET CT Mobile) Porsha Mcdaniels MD [facility] [place] [address] [facility] [place] [address] Referral ID Status Reason Start Date Expiration Date Visits Requested Visits Authorized [id number] New Request Specialty Service Requested 07/29/2023 07/28/2024 1 1 Reason for Visit * Consultation (Routine) - Closed Specialty Diagnoses / Procedures Referred By Contac t Referred To Contact Cardiology Diagnoses Heart failure with preserved ejection fraction, unspecified HF chronicity MINOCA. thorough evaluation performed to date. Jaspreet Kinsey MD [facility] [place] [address] Porsha Mcdaniels MD [facility] [place] [address] Referral ID Status Reason Start Date Expiration Date V isits Requested Visits Authorized [id number] Closed Consult, Test & Treat 06/09/2023 06/08/2024 1 1 Encounter Details Date Type Department Care Team (Late st Contact Info) Description 07/29/2023 8:00 AM EDT Office Visit Cardiology at [address] [address] Porsha Mcdaniels MD [facility] [place] [address] Chest pain, unspecified type Social History Tobacco Use Types Packs/Day Years Used Date Smoking Tobacco: Never Smokeless Tobacco: Never Alcohol Use Standard Drinks/Week Comments Never 0 (1 standard drink = 0.6 oz pur e alcohol) [facility] Utilities Answer Date Recorded In the past [...] place to sleep or slept in a usp (including now)? No 06/15/2023 [facility] Inpatient [...] Sign Reading Time Taken Comments Blood Pressure 107/68 07/29/2023 7:48 AM EDT Pulse 51 07/29/2023 7:48 AM EDT Temperature - - Respiratory Rate - - Oxygen Saturation 98% 07/29/2023 7:48 AM EDT Inhaled Oxygen Concentration - - Weight 101.6 kg (224 lb) 07/29/2023 7:48 AM EDT Height 162.6 cm (5' 4) 07/29/2023 7:48 AM EDT Body Mass Index 38.45 07/29/2023 7:48 AM EDT documented in this encounter Progress Notes * Porsha Mcdaniels MD - 07/29/2023 8:00 AM EDT Images from the original note were not included. [facility] [place] [address] Referring Provider: Jaspreet Kinsey MD [facility] [place] [address] Reason for Consultation / Chief Complaint: MINOCA Past Cardiac History and Relevant Comorbidities: # HFpEF # pAfib (?not on AC) # SVT (AVNRT since 06/2021) s/p EPS and SVT ablation on 04/01/[address] Tovar) # AMRYLOU on CPAP # HLD # Left carotid stenosis HPI: Indira Roque is a 53 y.o. 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 She follows with Dr. Kinsey in [place]. She underwent CCTA 09/27 that showed mild disease in her LAD. She also had a cardiac cath in 2019 with normal cors. [facility] a [facility] from [facility] due to exertional chest pressure and breathlessness. Patient had positive troponin but flat, nonspecific EKG changes, elevated BNP. TTE on 04/17 showed progressing anterolateral motion normalities, preserved EF. She underwent left heart cath on 04/18 showed nonobstructive ASCVD. She was started on amlodipine 2.5 mg daily for possible microvascular disease. 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 The patientunderwent outpatient stress PET CT on 04/30/23 that showed no evidence of active myocardial inflammation but revealed a myocardial scar. The patient saw Dr. Kinsey on 05/10/23, and since she has no significant epicardial CAD, no sarcoid, and no concomitant arrhythmias Was admitted to [facility] early last month for malaise, chest pain and SOB. Going on for a few years now. Having squeezing chest pain associated with SOB. Occurs with minimal activity. Dad had stents and pacemaker Mom has Fhx of CAD Nitro helps a little bit Other Past Medical History: Patient Active Problem List Diagnosis Code Asthma J45.909 Obstructive sleep apnea syndrome G47.33 Restless legs G25.81 Insomnia G47.00 (HFpEF) heart failure with preserved ejection fraction I50.30 Obesity E66.9 Dyslipidemia E78.5 SVT (supraventricular tachycardia) I47.10 Paroxysmal atrial fibrillation I48.0 Endometriosis N80.9 Stenosis of left carotid artery greater than 50% I65.22 Restrictive lung disease secondary to obesity J98.4, E66.9 Paresthesia of hand, bilateral R20.2 NSTEMI (non-ST elevated myocardial infarction) I21.4 Social History: reports that she has never smoked. She has never used smokeless tobacco. She reports that she does not drink alcohol and does not use drugs. Family History: Family History Problem Relation Age of Onset Hypertension Mother Arrhythmia Father Heart Surgery Father Myocardial Infarction Father Coronary Artery Disease Father ALLERGIES: Allergies Allergen Reactions Codeine Other (See Comments) Per pt it causes severe jittery and uncomfortable feeling Acetaminophen Other (See Comments) Makes her jittery, feel weird and cause swelling in upper/lower extremities Clobetasol Rash Other reaction(s): Skin Rash MEDICATIONS: Current Outpatient Medications: metoprolol succinate XL (Toprol-XL) 25 mg ER 24 hr tablet, Take 0.5 tablets by mouth daily., Disp: 45 tablet, Rfl: 3 ranolazine ER (Ranexa) 1,000 mg ER 12 hr tablet, Take 1 tablet by mouth 2 times daily., Disp: 180 tablet, Rfl: 3 torsemide (Demadex) 20 mg tablet, Take 2 tablets by mouth 2 times daily., Disp: 180 tablet, Rfl: 0 atorvastatin (Lipitor) 40 mg tablet, Take 1 tablet by mouth every evening., Disp: 90 tablet, Rfl: 3 metOLazone (Zaroxolyn) 2.5 mg tablet, Take 1 tablet by mouth as needed (take daily for weight gain + increasing shortness of breath. take 30-60 minutes prior to a dose of torsemide)., Disp: 30 tablet, Rfl: 0 rimegepant (Nurtec ODT) 75 mg disintegrating tablet, Take 75 mg by mouth daily as needed., Disp: , Rfl: nitroGLYcerin (Nitrostat) 0.4 mg sublingual tablet, Place 1 tablet under the tongue every 5 minutesas needed for Chest pain., Disp: 90 tablet, Rfl: 12 amLODIPine (Norvasc) 2.5 mg tablet, Take 1 tablet by mouth daily., Disp: 90 tablet, Rfl: 3 apixaban (Eliquis) 5 mg tablet, Take 1 tablet by mouth 2 times daily., Disp: 60 tablet, Rfl: 11 spironolactone (Aldactone) 25 mg tablet, Take 1 tablet by mouth daily., Disp: 90 tablet, Rfl: 3 melatonin 10 mg capsule, Take 10 mg by mouth nightly as needed., Disp: , Rfl: omeprazole (PriLOSEC) 20 mg Capsule, Delayed Release(E.C.), Take 20 mg by mouth once as needed. Infrequent use, Disp: , Rfl: empagliflozin (Jardiance) 10 mg Tablet, Take 1 tablet by mouth daily., Disp: 90 tablet, Rfl: 1 rOPINIRole (Requip) 1 mg Tablet, Take 2 mg by mouth 2 times daily., Disp: , Rfl: loratadine (Claritin) 10 mg Tablet, Take 10 mg by mouth daily as needed., Disp: , Rfl: fluticasone propionate (FLONASE) 50 mcg/actuation [place], Suspension, 1 spray by Each Nare route as needed., Disp: , Rfl: gabapentin (Neurontin) 300 mg Capsule, Take 600 mg by mouth nightly., Disp: , Rfl: topiramate (TOPAMAX) 50 mg Tablet, Take 100 mg by mouth nightly., Disp: , Rfl: DULoxetine (CYMBALTA) 60 mg capsule, Take 60 mg by mouth daily., Disp: , Rfl: albuterol (PROVENTIL HFA;VENTOLIN HFA) 90 mcg/Actuation inhaler, Inhale 2 puffs into the lungs every 4 hours as needed. Use with spacer, Disp: , Rfl: ROS: As per HPI, otherwise the remainder of the ROS was either non-pertinent or negative. PHYSICAL EXAM: Vitals: 07/29/23 0748 BP: 107/68 Pulse: 51 SpO2: 98% Weight: 101.6 kg (224 lb) Height: 162.6 cm (5' 4) General: Pleasant. No distress. Skin: Warm and dry with no visible rashes or lesions HEENT: No scleral icterus or pale conjunctiva Neck: JVP was at 5cm H2O above the RA. No AJR. Carotid upstroke normal with no carotid bruits. Chest: Clear to auscultation bilaterally. Normal intensity of breath sounds with good air entry bilaterally Heart: RRR. S1 and S2 Normal and unobscured. No murmurs. No S3 or S4 appreciated. Abdomen: Non-distended. Soft. Nontender. Extremities: RLE:No LE edema, 2+ DP pulse LLE: No LE edema, 2+ DP pulse RUE: 2+ radial pulse LUE: 2+ radial pulse EMERGENCY DEPARTMENT NURSE: Normal mentation. Moves all extremities without limitation. Gait is normal. Psych: Appropriate affect. Mood appropriate. Thought process linear. TESTING: I have reviewed the pertinent outside records, laboratory data, and imaging studies. Labs: CBC: Recent Labs 07/09/23 0303 07/08/23 0552 07/07/23 0351 WBC 6.7 7.3 7.9 HGB 12.4 12.3 13.8 PLATELET 209 207 255 Chemistry: Recent Labs 07/09/23 0303 07/08/23 0552 07/07/23 0351 NA 138 139 135 K 4.2 3.2* 3.5 CL 104 101 96* CO2 22 25 23 BUN 12 14 18 CREATININE 1.24* 1.30* 1.30* GLUCOSE 100 102 101 Recent Labs 07/09/23 0303 07/08/23 0552 07/07/23 0351 CALCIUM 9.3 9.3 9.4 MAGNESIUM 0.91 0.89 0.87 PHOS 4.5 4.3 4.0 LFT's: Recent Labs 07/07/23 0351 07/06/23 1541 07/06/23 0354 BILITOT 0.4 0.4 0.4 BILIDIR 0.1 0.1 Not Perf ALBUMIN 4.4 4.3 4.3 ALKPHOS 54 58 58 ALT 20 22 25 AST 15 20 Not Perf Cardiac enzymes: Recent Labs 06/24/23 0338 06/21/23 0558 06/15/23 0428 PROBNP 1,239* 1,370* 1,953* Endocrine: Recent Labs 06/15/23 0428 04/17/23 03302/08/23 2208 TSH 2.98 5.93* 4.00 Lipid Panel Lab Results Component Value Date CHLPL 190 06/16/2023 HDL 50 06/16/2023 CHOLHDL 3.9 04/18/2023 TRIG 126 06/16/2023 LDLCHOL 115 06/16/2023 LDLDIRECT 105 04/18/2023 A/P: Indira Roque is a 53 y.o. female who presents for evaluation of the following cardiovascular issues: Diagnoses and all orders for this visit: Chest pain, unspecified type - Nuclear Pharmacologic Stress Cardiology (PET CT Mobile); Future - NM PET CT Cardiac Pharmacologic Stress and Rest; Future - NM PET CT Cardiac Pharmacologic Stress CT Component; Future - EKG 12 Lead; Future - EKG 12 Lead Recommendations: PET STRESS to evaluate for microvascular dysfunction Porsha Mcdaniels MD Section of Interventional Cardiology [facility] Newspaper Library Managersenior it specialist [facility] 07/29/2023 documented in this encounter Plan of Treatment Upcoming Encounters Date Type Department Care Team (Late st Contact Info) Description 10/08/2023 8:30 AM EDT Tech Visit [place] [phone] Jose Cook 10/08/2023 9:30 AM EDT Office Visit [place] [phone] MD [facility] [place] [place] [address] 10/21/2023 10:30 AM EDT Appointment [place] [phone] Mary Reyes, [facility] [place] [address] 10/21/2023 11:30 AM EDT Appointment Nuclear Medicine at [place] [phone] Mary Reyes [facility] [place] [place] [address] 10/21/2023 12:30 PM EDT Appointment [place] [phone] Mary Reyes [facility] [place] [place] [address] 10/21/2023 1:30 PM EDT Appointment [place] [address] Mary Reyes [facility] [place] [place] [address] 10/21/2023 2:30 PM EDT Appointment [place] [address] Mary Reyes [facility] [place] [place] [address] 10/26/2023 4:00 PM EDT Office Visit Cardiology at [address] [address] Jaspreet Kinsey MD [facility] [place] [address] 10/28/2023 9:00 AM EDT Office [place] [address] 10/29/2023 10:00 AM EDT Clinical [place] [address] 10/29/2023 10:15 AM EDT Procedure [place] [address] 11/01/2023 5:00 PM EDT Office Visit [place] [phone] Selene Browning, PhD [facility] [place] [address] 11/22/2023 4:40 PM EDT Office Visit Cardiology at [address] [phone] Porsha Mcdaniels MD [facility] [place] [address] 12/13/2023 10:00 AM EDT Clinical [place] [phone] [facility] [place] [address] documented as of this encounter Procedures Procedure Name Priority Date/Time Associated Diagnosis Comments EKG 12-LEAD Routine 07/29/2023 8:47 AM EDT Chest pain, unspecified type documented in this encounter Results * NM PET CT Cardiac Pharmacologic Stress CT Component (08/17/2023 2:38 PM EDT) [employer] Signature WORKSTATION ID [id number] [facility] Anatomical Region Laterality Modality Positron Emissio n [...] who have questions please contact the health body care manager that requested 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 ? Electronically signed by: Clay Stanton MD, [facility] ([phone]), at 08/18/2023 2:49 PM Narrative 08/18/2023 2:49 PM EDT EXAMINATION: NM [...] Coronary calcifications. Bilateral ground glass opacities are Procedure Note Clay Stanton MD - 08/18/2023 [...] patients who have questions please contactthe health body care manager that requested 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 Electronically signed by: Clay Stanton MD, [facility]([phone]), at 08/18/2023 2:49 PM Porsha Mcfarlane MD IM PET ORDERABLES * NM PET CT Cardiac Pharmacologic Stress and Rest (08/17/2023 2:38 PM EDT) WORKSTATION ID [id number] RAD Anatomical Region Laterality Modality Positron Emissio [...] who have questions please contact the health body care manager that requested 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 ? Electronically signed by: Clay Stanton MD, [facility] ([phone]), at 08/18/2023 2:49 PM Narrative 08/18/2023 2:49 PM EDT EXAMINATION: NM [...] Coronary calcifications. Bilateral ground glass opacities are [id number] Procedure Note Clay Stanton MD - 08/18/2023 EXAMINATION: AL PET CT CARDIAC PHARMACOLOGIC STRESS AND REST, AL PET CTCARDIAC PHARMACOLOGIC STRESS CT COMPONENT CLINICAL [...] Coronary calcifications. Bilateral ground glass opacities are [id number] IMPRESSION Moderate-sized scar in the apical septum [...] patients who have questions please contactthe health body care manager that requested 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 Electronically signed by: Clay Stanton MD, [facility]([phone]), at 08/18/2023 2:49 PM Porsha Mcfarlane MD IMG PET ORDERABLES * Nuclear Pharmacologic Stress Cardiology (PET CT Mobile) (08/17/2023 2:17 PM EDT) Anatomical Region Laterality Modality Other Porsha Mcfarlane MD CARDIAC SERVICES OR DERABLES * EKG 12 Lead (07/29/2023 8:47 AM EDT) Ventricular rate 51 BPM MUSE SYSTEM Atrial Rate 51 BPM MUSE SYSTEM P-R Interval 182 ms MUSE SYSTEM QRS Duration 92 ms MUSE SYSTEM Q-T Interval 454 ms MUSE SYSTEM QTC Calculated (Bezet) 418 ms MUSE SYSTEM Calculated P [place] 6 degrees MUSE SYSTEM Calculated R [place] 34 degrees MUSE SYSTEM Calculated T [place] -73 degrees MUSE SYSTEM INTERPRETATION Sinus bradycardia with Premature atrial complexes Poor R wave progression Possible Lateral infarct , age undetermined Abnormal ECG When compared with ECG of 26-JUL-2023 15:57, Nonspecific T wave abnormality now evident in Inferior leads T wave inversion now evident in Anterolateral leads Confirmed by MD NAILA, KAUSHIK ([id number]) on 07/29/2023 1:08:23 PM MUSE SYSTEM 07/29/2023 8:47 AM EDT 07/29/2023 1:08 PM EDT Porsha Mcfarlane MD ECG ORDERABLES MUSE SYSTEM documented in this encounter Visit Diagnoses Diagnosis Chest pain, unspecified type Chest pain, unspecified type documented in this encounter Care Teams Tig Welder Relationship Specialty Start Date End Date Polo Pearce PA [address] [place] [address] PCP - General Internal Medicine 06/09/21 documented as of this encounter
--- OUTSIDE RECORDS SUMMARY | 2023-09-20 14:29 | XMS_ITS | Encounter Summary ---
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 Scheduled Referrals Name Type Priority Associated Diagnoses Orde r Schedule Amb [facility] Outpatient Referral Routine Altered bowel function Depression, unspecified depression type Ordered: 08/25/2023 Referral to [facility] Outpatient Referral Routine Gastroesophageal reflux disease, unspecified whether esophagitis present Ordered: 08/25/2023 documented as of this encounter Results * Tissue transglutaminase, IgA (08/25/2023 11:28 AM EDT) TTG IgA Ab 0.6 <=10.0 u/ml [facility] Comment: Negative: ??<7 units/mL Indeterminate: 7-10 units/mL Positive: ??>10 units/mL Blood 08/25/2023 11:2 8 AM EDT 08/26/2023 7:26 AM EDT Narrative Resulting Agency Comment Spec In Lab Mary Reyes RECORDS MANAGEMENT ANALYST IMMUNOLOGY ORDERAB LES Performing Organization Address City/[facility]/ZIP Co de Phone Number [facility] [place] [address] * IgG (08/25/2023 11:28 AM EDT) IgG 1,114 700 - 1,600 mg/dL [facility] Comment: Pediatric Reference Intervals obtained from the Caliper Reference Interval project. http://www.Sonavation.ca/caliperproject/index.html Blood 08/25/2023 11:2 8 AM EDT 08/25/2023 11:37 AM EDT Narrative Resulting Agency Comment Spec In Lab Mary Reyes APRN IMMUNOLOGY ORDERAB LES Performing Organization Address City/[facility]/ZIP Co de Phone Number [facility] [place] [address] * IgA (08/25/2023 11:28 AM EDT) IgA 372 70 - 400 mg/dL [facility] Blood 08/25/2023 11:2 8 AM EDT 08/25/2023 11:37 AM EDT Narrative Resulting Agency Comment Spec In Lab Mary Reyes RECORDS MANAGEMENT ANALYST IMMUNOLOGY ORDERAB LES Performing Organization Address City/[facility]/ZIP Co de Phone Number [facility] [place] [address] documented in this encounter Visit Diagnoses Diagnosis Altered bowel function Other symptoms involving digestive system Depression, unspecified depression type Gastroesophageal reflux disease, unspecified whether esophagitis present Esophageal dysphagia Dysphagia, pharyngoesophageal phase Nausea without vomiting Early satiety documented in this encounter Care Teams Software Tools Developer Relationship Specialty Start Date End Date Polo Pearce PA [address] [place] [address] PCP - General Internal Medicine 06/09/21 documented as of this encounter
--- OUTSIDE RECORDS SUMMARY | 2023-09-20 14:29 | XMS_ITS | Encounter Summary ---
Author Organization [facility] Address [facility] [place] [address] Care Team Providers Care Content Specialist Name Role Phone Polo Pearce Primary Care Provider [phone] Reason for Visit * Reason Comments Congestive Heart Failure Atrial Fibrillation Encounter Details Date Type Department Care Team (Late st Contact Info) Description 07/26/2023 3:20 PM EDT Office Visit Cardiology at [address] [phone] Jaspreet Kinsey MD [facility] [place] [address] Heart failure with preserved ejection fraction, unspecified HF chronicity; Paroxysmal atrial fibrillation; SVT (supraventricular tachycardia); Chest pain, unspecified type Social History Tobacco Use Types Packs/Day Years Used Date Smoking Tobacco: Never Smokeless Tobacco: Never Alcohol Use Standard Drinks/Week Comments Never 0 (1 standard drink = 0.6 oz pur e alcohol) [facility] Utilities Answer Date Recorded In the past [...] place to sleep or slept in a custodial (including now)? No 06/15/2023 [facility] IPV Inpatient [...] Sign Reading Time Taken Comments Blood Pressure 110/60 07/26/2023 3:50 PM EDT Pulse 50 07/26/2023 3:50 PM EDT per e cg Temperature - - Respiratory Rate - - Oxygen Saturation - - Inhaled Oxygen Concentration - - Weight 100.7 kg (222 lb) 07/26/2023 3:50 PM EDT Height 162.6 cm (5' 4) 07/26/2023 3:50 PM EDT Body Mass Index 38.11 07/26/2023 3:50 PM EDT documented in this encounter Progress Notes * Jaspreet Kinsey MD - 07/26/2023 3:20 PM EDT Images from the original note were not included. Subjective: Patient ID: Indira Roque is a 53 y.o. female who presents on follow-up for: Chief Complaint Patient presents with Congestive Heart Failure Atrial Fibrillation HPI Last seen by ri 05/2023, at which time the comprehensive cardiac evaluation was reviewed. In addition, torsemide was increased to 40 BID. Intercurrently, she was admitted to 06/2023 through early 07/2023 with what seems to have been acute on chronic HFpEF. 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 On discharge, she weighed 222 lbs and was on stable torsemide dosage, a few days after having developed CATIE from initial diuresis (which would imply attaining intravascular hypovolemia) Since then, she has been very careful regarding her sodium intake, and this has led to her weight being stable. However, she is able to function better in terms of her work as well as physical activity at home. No orthopnea, pnd. She notes less nausea since the SMA stent No palpitations Current Outpatient Medications Medication Instructions albuterol (PROVENTIL HFA;VENTOLIN HFA) 90 mcg/Actuation inhaler 2 puffs, Inhalation, EVERY 4 HOURS PRN, Use with spacer amLODIPine (NORVASC) 2.5 mg, Oral, DAILY apixaban (ELIQUIS) 5 mg, Oral, 2 TIMES DAILY atorvastatin (LIPITOR) 40 mg, Oral, EVERY EVENING DULoxetine DR (CYMBALTA) 60 mg, DAILY empagliflozin (JARDIANCE) 10 mg, Oral, DAILY fluticasone propionate (FLONASE) 50 mcg/actuation [place], Suspension 1 spray, Each Nare, PRN gabapentin (NEURONTIN) 600 mg, Oral, NIGHTLY loratadine (CLARITIN) 10 mg, Oral, DAILY PRN melatonin 10 mg, Oral, NIGHTLY PRN metOLazone (ZAROXOLYN) 2.5 mg, Oral, PRN metoprolol succinate XL (TOPROL-XL) 12.5 mg, Oral, DAILY nitroGLYcerin (NITROSTAT) 0.4 mg, Sublingual, EVERY 5 MIN PRN Nurtec ODT 75 mg, Oral, DAILY PRN omeprazole (PRILOSEC) 20 mg, Oral, ONCE PRN, Infrequent use ranolazine ER (RANEXA) 1,000 mg, Oral, 2 TIMES DAILY rOPINIRole (REQUIP) 2 mg, Oral, 2 TIMES DAILY spironolactone (ALDACTONE) 25 mg, Oral, DAILY topiramate (TOPAMAX) 100 mg, Oral, NIGHTLY torsemide (DEMADEX) 40 mg, Oral, 2 TIMES DAILY Patient Active Problem List Diagnosis (HFpEF) heart failure with preserved ejection fraction 05/2021: subacute, presented to [facility] with RUQ pain, weight gain, and progressive [...] sarcoid. Anterior scar pattern 06/2023: Admission at [facility] ([facility]). 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 Gen: pleasant female in NAD Cor: rrady reg s1/s2 of nl character and amplitude, no pathologic m/r/g. Estimated RAP not elevated. Carotids with normal upstroke without bruit. Pulm: CTAB. Normal diaphragmatic movement without use of accessory muscles EKG: sb 50, non-specific ST-TW Assessment and Plan: (HFpEF) heart failure with preserved ejection fraction Weight stable, no failure on history/exam. Compreshensive evaluation regarding the cardiac biomarkers has been unremarkable. Most likely due to volume overload at the times of presentation - torsemide 40 bid - metolazone 2.5 QD PRN weight gain + increasing dyspnea - Jardiance 10 - aldactone 25 Paroxysmal atrial fibrillation Remains in NSR - Strategy: paroxysmal rate. Continue not on avnb - OAC: eliquis 5 bid (this is more so for history of PE) - Reversible Causes: obesity SVT (supraventricular tachycardia) No issues since ablation Chest pain This has been posited historically due to [place]. I posit this is in fact primarily from volume overload on times of presentation. However, the echocardiographic findings of regional wall motion, as well as infarct pattern on MRI, would not line up with this hypothesis. As per prior discussion, she has been referred to the clare Mcdaniels who is the local expertise in the aforementioned phenomenon. Looking forward to her insight. For now, will continue empiric treatment for the microvasculardisease - ranexa 1g bid - toprol 12.5 (max tolerated) RTC 3 months Jaspreet Kinsey MD documented in this encounter Miscellaneous Notes * Assessment & Plan Note - Jaspreet Kinsey MD - 07/29/2023 9:57 AM EDT Associated Problem(s): Chest pain This has been posited historically due to [place]. I posit this is in fact primarily from volume overload on times of presentation. However, the echocardiographic findings of regional wall motion, as well as infarct pattern on MRI, would not line up with this hypothesis. As per prior discussion, she has been referred to the clare Mcdaniels who is the local expertise in the aforementioned phenomenon. Looking forward to her insight. For now, will continue empiric treatment for the microvasculardisease - ranexa 1g bid - toprol 12.5 (max tolerated) * Assessment & Plan Note - Jaspreet Kinsey MD - 07/29/2023 9:54 AM EDT Associated Problem(s): SVT (supraventricular tachycardia) No issues since ablation * Assessment & Plan Note - Jaspreet Kinsey MD - 07/29/2023 9:54 AM EDT Associated Problem(s): Paroxysmal atrial fibrillation Remains in NSR - Strategy: paroxysmal rate. Continue not on avnb - OAC: eliquis 5 bid (this is more so for history of PE) - Reversible Causes: obesity * Assessment & Plan Note - Jaspreet Kinsey MD - 07/29/2023 9:53 AM EDT Associated Problem(s): (HFpEF) heart failure with preserved ejection fraction Weight stable, no failure on history/exam. Compreshensive evaluation regarding the cardiac biomarkers has been unremarkable. Most likely due to volume overload at the times of presentation - torsemide 40 bid - metolazone 2.5 QD PRN weight gain + increasing dyspnea - Jardiance 10 - aldactone 25 documented in this encounter Plan of Treatment Upcoming Encounters Date Type Department Care Team (Late st Contact Info) Description 10/08/2023 8:30 AM EDT Tech Visit Vascular Lab at [place] [phone] Jose Cook 10/08/2023 9:30 AM EDT Office [place] [phone] MD [facility] [place] [address] 10/21/2023 10:30 AM EDT Appointment [place] [address] Mary Reyes APRN [facility] [place] [address] 10/21/2023 11:30 AM EDT Appointment [place] [address] Mary Reyes, [facility] [place] [address] 10/21/2023 12:30 PM EDT Appointment [place] [address] Mary Reyes [facility] [place] [address] 10/21/2023 1:30 PM EDT Appointment [place] [address] Mary Reyes [facility] [place] [address] 10/21/2023 2:30 PM EDT Appointment [place] [address] Mary Reyes [facility] [place] [address] 10/26/2023 4:00 PM EDT Office Visit Cardiology at [address] [phone] Jaspreet Kinsey MD [facility] [place] [address] 10/28/2023 9:00 AM EDT Office [place] [address] 10/29/2023 10:00 AM EDT Clinical [place] [address] 10/29/2023 10:15 AM EDT Procedure [place] [address] 11/01/2023 5:00 PM EDT Office [place] [address] Selene Browning, PhD [facility] [place] [address] 11/22/2023 4:40 PM EDT Office Visit Cardiology at [place] [phone] Porsha Mcdaniels MD [facility] [place] [address] 12/13/2023 10:00 AM EDT Clinical [place] [phone] Lucero Romero, [place] [place] [address] documented as of this encounter Visit Diagnoses Diagnosis Heart failure with preserved ejection fraction, unspecified HF chronicity Paroxysmal atrial fibrillation Atrial fibrillation SVT (supraventricular tachycardia) Other specified cardiac dysrhythmias Chest pain, unspecified type documented in this encounter Care Teams Content Specialist Relationship Specialty Start Date End Date Polo Pearce PA [address] [place] [address] PCP - General Internal Medicine 06/09/21 documented as of this encounter
--- OUTSIDE RECORDS SUMMARY | 2023-09-20 14:29 | XMS_ITS | Encounter Summary ---
Author Organization [facility] Address [facility] [place] [address] Care Team Providers Care Loin Puller Name Role Phone Polo Pearce Primary Care Provider [phone] Encounter Details Date Type Department Care Team (Latest Contact Info) Description 08/25/2023 Travel Social History Tobacco Use Types Packs/Day Years Used Date Smoking Tobacco: Never Smokeless Tobacco: Never Alcohol Use Standard Drinks/Week Comments Never 0 (1 standard drink = 0.6 oz pur e alcohol) [facility] Utilities Answer Date Recorded In the [...] place to sleep or slept in a group home (including now)? No 06/15/2023 [facility] Inpatient Questions Answer Date Recorded Does Anyone [...] AM EDT Tech [place] [address] Jose Cook 10/08/2023 9:30 AM EDT Office Visit [place] [address] MD [facility] [place] [address] 10/21/2023 10:30 AM EDT Appointment [place] [address] [facility] [place] [address] 10/21/2023 11:30 AM EDT Appointment [place] [phone] Mary Reyes OCCUPATIONAL HEALTH NURSE SUPERVISOR [facility] [place] [address] 10/21/2023 12:30 PM EDT Appointment [place] [address] Mary Reyes, [facility] [place] [address] 10/21/2023 1:30 PM EDT Appointment [place] [address] Mary Reyes, [facility] [place] [address] 10/21/2023 2:30 PM EDT Appointment [place] [address] Mary Reyes, [facility] [place] [address] 10/26/2023 4:00 PM EDT Office Visit Cardiology at [address] [phone] Jaspreet Kinsey MD [facility] [place] [address] 10/28/2023 9:00 AM EDT Office Visit [place] [address] 10/29/2023 10:00 AM EDT Clinical Support [place] [address] 10/29/2023 10:15 AM EDT Procedure visit [place] [address] 11/01/2023 5:00 PM EDT Office Visit [place] [address] Selene Browning, PhD [facility] [place] [address] 11/22/2023 4:40 PM EDT Office Visit Cardiology at [address] [phone] Porsha Mcdaniels MD [facility] [place] [address] 12/13/2023 10:00 AM EDT Clinical Support [place] [phone] [facility] [place] [place] [address] documented as of this encounter Visit Diagnoses Not on filedocumented in this encounter Care Teams Loin Puller Relationship Specialty Start Date End Date Polo Pearce PA [address] [place] [address] PCP - General Internal Medicine 06/09/21 documented as of this encounter
--- OUTSIDE RECORDS SUMMARY | 2023-09-20 14:29 | XMS_ITS | Encounter Summary ---
Author Organization [facility] Address [facility] [address] Care Team Providers Care Veneer Grader Name Role Phone oPlo Pearce Primary Care Provider [phone] Encounter Details Date Type Department Care Team (Latest Contact Info) Description 08/17/2023 Travel Social History Tobacco Use Types Packs/Day [...] place to sleep or slept in a retirement (including now)? No 06/15/2023 [facility] Inpatient Questions Answer Date Recorded Does [...] AM EDT Tech [place] [address] Jose Cook 10/08/2023 9:30 AM EDT Office [place] [address] MD [facility] [place] [address] 10/21/2023 10:30 AM EDT Appointment [place] [address] Mary Reyes [facility] [place] [address] 10/21/2023 11:30 AM EDT Appointment [place] [phone] Mary Reyes DRY CLEANER HELPER [facility] [place] [address] 10/21/2023 12:30 PM EDT Appointment [place] [address] Mary Reyes, [facility] [place] [address] 10/21/2023 1:30 PM EDT Appointment [place] [address] Mary Reyes, [facility] [place] [address] 10/21/2023 2:30 PM EDT Appointment [place] [address] Mary Reyes, [facility] [place] [address] 10/26/2023 4:00 PM EDT Office Visit Cardiology at [address] [phone] Jaspreet Kinsey MD [facility] [place] [address] 10/28/2023 9:00 AM EDT Office [place] [address] 10/29/2023 10:00 AM EDT Clinical [place] [address] 10/29/2023 10:15 AM EDT Procedure [place] [address] 11/01/2023 5:00 PM EDT Office [place] [address] Selene Browning, PhD [facility] [place] [address] 11/22/2023 4:40 PM EDT Office Visit Cardiology at [address] [phone] Porsha Mcdaniels MD [facility] [place] [address] 12/13/2023 10:00 AM EDT Clinical [place] [phone] [facility] [place] [place] [address] documented as of this encounter Visit Diagnoses Not on filedocumented in this encounter Care Teams Veneer Grader Relationship Specialty Start Date End Date Polo Pearce PA [address] [place] [address] PCP - General Internal Medicine 06/09/21 documented as of this encounter
--- OUTSIDE RECORDS SUMMARY | 2023-09-20 14:29 | XMS_ITS | Encounter Summary ---
[place] [address] Care Team Providers Care Government Affairs Researcher Name Role Phone Polo Pearce Primary Care Provider [phone] Reason for Visit * Auth/Cert (Routine) Specialty Diagnoses / Procedures Referred By Jayant harris Referred To Contact Diagnoses NSTEMI (non-ST elevated myocardial infarction) NSTEMI Procedures EMERGENCY Felix [place] [address] [facility] Referral ID Status Reason Start Date Expiration Date Visits Re quested Visits Authorized [id number] 1 1 Encounter Details Date Type Department Care Team (Late st Contact Info) Description 08/25/2023 12:55 PM EDT Laboratory Appointment Lab [address] [place] [address] Social History Tobacco Use Types Packs/Day Years Used Date Smoking Tobacco: Never Smokeless Tobacco: Never Alcohol Use Standard Drinks/Week Comments Never 0 (1 standard drink = 0.6 oz pur e alcohol) [facility] Utilities Answer Date Recorded In the [...] place to sleep or slept in a [place] (including now)? No 06/15/2023 [facility] Inpatient Questions [...] AM EDT Tech [place] [address] Jose Cook 10/08/2023 9:30 AM EDT Office Visit [place] [address] MD [facility] [place] [address] 10/21/2023 10:30 AM EDT Appointment [place] [address] Mary Reyes [facility] [place] [address] 10/21/2023 11:30 AM EDT Appointment Nuclear Medicine at [place] [phone] Mary Reyes [facility] [place] [address] 10/21/2023 12:30 PM EDT Appointment Nuclear Medicine at [place] [phone] Mary Reyes [facility] [place] [address] 10/21/2023 1:30 PM EDT Appointment [place] [address] Mary Reyes [facility] [place] [address] 10/21/2023 2:30 PM EDT Appointment [place] [address] Mary Reyes [facility] [place] [address] 10/26/2023 4:00 PM EDT Office Visit Cardiology at [address] [phone] Jaspreet Kinsey MD [facility] [place] [address] 10/28/2023 9:00 AM EDT Office [place] [address] 10/29/2023 10:00 AM EDT Clinical [place] [address] 10/29/2023 10:15 AM EDT Procedure [place] [address] 11/01/2023 5:00 PM EDT Office Visit Gastroenterology at [place] [phone] Selene Browning, PhD [facility] [place] [address] 11/22/2023 4:40 PM EDT Office Visit Cardiology at [address] [phone] Porsha Mcdaniels MD [facility] [place] [address] 12/13/2023 10:00 AM EDT Clinical Support [place] [address] Lucero Romero, RD [facility] [place] [address] documented as of this encounter Visit Diagnoses Not on filedocumented in this encounter Care Teams Government Affairs Researcher Relationship Specialty Start Date End Date Polo Pearce PA [address] [place] [address] PCP - General Internal Medicine 06/09/21 documented as of this encounter
--- OUTSIDE RECORDS SUMMARY | 2023-09-20 14:29 | XMS_ITS | Encounter Summary ---
Author Organization [facility] [place] [address] Care Team Providers Care Complex Case Manager Name Role Phone Polo Pearce Primary Care Provider [phone] Reason for Referral * Diagnostic Test (Routine) - Closed Specialty Diagnoses / Procedures Referred By Contac t Referred To Contact Radiology Diagnoses Chest pain, unspecified type Procedures NM PET CT Cardiac Pharmacologic Stress CT Component Porsha Mcdaniels MD [facility] [place] [address] [place] [address] Referral ID Status Reason Start Date Expiration Date V isits Requested Visits Authorized [id number] Closed Specialty Service Requested 08/03/2023 10/01/2023 1 1 * Diagnostic Test (Routine) - Closed Specialty Diagnoses / Procedures Referred By Contac t Referred To Contact Radiology Diagnoses Chest pain, unspecified type Procedures NM PET CT Cardiac Pharmacologic Stress and Rest Porsha Mcdaniels MD [facility] [place] [address] [place] [address] Referral ID Status Reason Start Date Expiration Date V isits Requested Visits Authorized [id number] Closed Specialty Service Requested 08/03/2023 10/01/2023 1 1 Reason for Visit * Diagnostic Test (Routine) - Closed Specialty Diagnoses / Procedures Referred By Contac t Referred To Contact Radiology Diagnoses Chest pain, unspecified type Procedures NM PET CT Cardiac Pharmacologic Stress and Rest Porsha Mcdaniels MD [facility] [place] [address] [place] [address] Referral ID Status Reason Start Date Expiration Date V isits Requested Visits Authorized [id number] Closed Specialty Service Requested 08/03/2023 10/01/2023 1 1 Encounter Details Date Type Department Care Team (Latest Contact Info) Description 08/17/2023 11:52 AM EDT Hospital Encounter [place] [address] Porsha Mcdaniels MD [facility] [place] [address] Chest pain, unspecified type Discharge Disposition: Home Social History Tobacco Use Types Packs/Day Years Used Date Smoking Tobacco: Never Smokeless Tobacco: Never Alcohol Use Standard Drinks/Week Comments Never 0 (1 standard drink = 0.6 oz pur e alcohol) [facility] Utilities Answer Date Recorded In the past 12 months has [employer], gas, oil, or water company threatened [...] in a retirement (including now)? No 06/15/2023 DH IPV Inpatient [...] on file documented as of this encounter Medications at Time of Discharge [...] as needed. fluticasone propionate (FLONASE) 50 mcg/actuation [place], Suspension 1 spray by Each Nare route [...] AM EDT Tech [place] [address] Jose Cook 10/08/2023 9:30 AM EDT Office [place] [address] MD [facility] [place] [address] 10/21/2023 10:30 AM EDT Appointment Nuclear Medicine at [address] Mary Reyes, [facility] [address] 10/21/2023 11:30 AM EDT Appointment Nuclear Medicine at [address] Mary Reyes [facility] [place] [address] 10/21/2023 12:30 PM EDT Appointment [place] [address] Mary Reeys [facility] [place] [address] 10/21/2023 1:30 PM EDT Appointment [place] [address] Mary Reyes [facility] [place] [address] 10/21/2023 2:30 PM EDT Appointment [place] [address] Mary Reyes [facility] [place] [address] 10/26/2023 4:00 PM EDT Office Visit Cardiology at [address] [place] [address] Jaspreet Kinsey MD [facility] [place] [address] 10/28/2023 9:00 AM EDT Office Visit [place] [address] 10/29/2023 10:00 AM EDT Clinical Support [place] [address] 10/29/2023 10:15 AM EDT Procedure visit [place] [address] 11/01/2023 5:00 PM EDT Office [place] [address] Selene Browning, PhD [facility] [place] [address] 11/22/2023 4:40 PM EDT Office Visit Cardiology at [address] [phone] Porsha Mcdaniels MD [facility] [place] [place] [address] 12/13/2023 10:00 AM EDT Clinical [place] [phone] [facility] [place] [address] documented as of this encounter Procedures Procedure Name Priority Date/Time Associated Diagnosis Comments NM PET CT CARDIAC PHARMACOLOGIC STRESS CT COMPONENT Routine 08/17/2023 2:38 PM EDT Chest pain, unspecified type NM PET CT CARDIAC PHARMACOLOGIC STRESS Routine 08/17/2023 2:38 PM EDT Chest pain, unspecified type documented in this encounter Results * NM PET CT Cardiac Pharmacologic Stress CT Component (08/17/2023 2:38 PM EDT) WORKSTATION ID [id number] RAD Anatomical Region Laterality Modality Positron Emissio [...] who have questions please contact the health youth care worker that requested 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 ? Electronically signed by: Clay Stanton MD, [facility] ([phone]), at 08/18/2023 2:49 PM Narrative 08/18/2023 2:49 [...] Coronary calcifications. Bilateral ground glass opacities are [id number] Procedure Note Clay Stanton MD - 08/18/2023 EXAMINATION: OK PET CT CARDIAC PHARMACOLOGIC STRESS AND REST, OK PET CTCARDIAC PHARMACOLOGIC STRESS CT COMPONENT CLINICAL [...] Coronary calcifications. Bilateral ground glass opacities are [id number] IMPRESSION Moderate-sized scar in the apical septum [...] patients who have questions please contactthe health youth care worker that requested 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 Electronically signed by: Clay Stanton MD, [facility]([phone]), at 08/18/2023 2:49 PM Porsha Mcfarlane MD IMG PET ORDERABLES * NM PET CT Cardiac Pharmacologic Stress and Rest (08/17/2023 2:38 PM EDT) Hudl WORKSTATION ID [id number] [facility] Anatomical Region Laterality Modality Positron Emissio [...] who have questions please contact the health youth care worker that requested 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 ? Electronically signed by: Clay Stanton MD, [facility] ([phone]), at 08/18/2023 2:49 PM Narrative 08/18/2023 2:49 PM EDT EXAMINATION: [place] PET CT CARDIAC PHARMACOLOGIC STRESS AND REST, [place] PET CT CARDIAC PHARMACOLOGIC STRESS CT COMPONENT [...] Note Clay Stanton MD - 08/18/2023 EXAMINATION: [place] PET CT CARDIAC PHARMACOLOGIC STRESS AND REST, OK PET CTCARDIAC PHARMACOLOGIC STRESS CT COMPONENT CLINICAL [...] patients who have questions please contactthe health youth care worker that requested 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 Electronically signed by: Clay Stanton MD, [facility]([phone]), at 08/18/2023 2:49 PM Porsha Mcfarlane MD IMG PET ORDERABLES documented in this encounter Visit Diagnoses Diagnosis Chest pain, unspecified type documented in this encounter Administered Medications Inactive Administered Medications - up to 3 most recent administrations Medication Order MAR Action Action Date Dose Rate Site regadenoson (Lexiscan) injection 0.4 mg 0.4 mg, Intravenous, ONCE, 1 dose, On Wed08/17/23 at 1400, Radiology Contrast, Routine Given 08/17/2023 2:00 PM EDT 0.4 mg Right Arm rubidium (Rb-82) (Cardiogen) injection 1-50 mCi 1-50 mCi, Intravenous, 2 TIMES DAILY PRN, Starting on Wed08/17/23 at 1343, Until Wed08/18/23 at 0435, Per Protocol, Radiology Contrast, Routine Given 08/17/2023 2:00 PM EDT 35 mCi Right Arm Given 08/17/2023 1:49 PM EDT 35 mCi Ri ght Arm documented in this encounter Care Teams Complex Case Manager Relationship Specialty Start Date End Date Polo Pearce PA [address] [place] [address] PCP - General Internal Medicine 06/09/21 documented as of this encounter
--- OUTSIDE RECORDS SUMMARY | 2023-09-20 14:29 | XMS_ITS | Encounter Summary ---
Author Organization [facility] [address] Care Team Providers Care [employer] Program Coordinator Name Role Phone Polo Pearce Primary Care Provider [phone] Encounter Details Date Type Department Care Team (Late st Contact Info) Description 08/28/2023 External [place] [phone] Social History Tobacco Use Types Packs/Day Years Used Date Smoking Tobacco: Never Smokeless Tobacco: Never Alcohol Use Standard Drinks/Week Comments Never 0 (1 standard drink = 0.6 oz pur e alcohol) [facility] Utilities Answer Date Recorded In the past [...] place to sleep or slept in a correction (including now)? No 06/15/2023 Housing Stability Vital Sign Answer Mitchell e Recorded In the last 12 months, was t here a time when you were not able to pay the mortgage or rent on time? No 08/30/2023 In the past 12 months, how m any times have you moved where you were living? 1 08/30/2023 At any time in the past 12 m [facility], were you homeless or living in a correction (including now)? No 08/30/2023 IPV Inpatient Questions Answer Date Recorded Does [...] AM EDT Tech [place] [phone] Jose Cook 10/08/2023 9:30 AM EDT Office [place] [address] MD [facility] DR VASCULAR SURGERY [place], [place] [address] 10/21/2023 10:30 AM EDT Appointment [place] [address] Mary Reyes APRN [facility] [place] [address] 10/21/2023 11:30 AM EDT Appointment [place] [address] Mary Reyes, [facility] [place] [address] 10/21/2023 12:30 PM EDT Appointment [place] [address] Mary Reyes, [facility] [place] [address] 10/21/2023 1:30 PM EDT Appointment [place] [address] Mary Reyes, [facility] [place] [address] 10/21/2023 2:30 PM EDT Appointment [place] [address] Mary Reyes, [facility] [place] [address] 10/26/2023 4:00 PM EDT Office Visit Cardiology at [address] [place] [address] Jaspreet Kinsey MD [facility] [place] [address] 10/28/2023 9:00 AM EDT Office [place] [address] 10/29/2023 10:00 AM EDT Clinical [place] [address] 10/29/2023 10:15 AM EDT Procedure [place] [address] 11/01/2023 5:00 PM EDT Office Visit Gastroenterology at [place] [phone] Selene Browinng, PhD [facility] [place] [address] 11/22/2023 4:40 PM EDT Office Visit Cardiology at [place] [phone] Porsha Mcdaniels MD [facility] [place] [address] 12/13/2023 10:00 AM EDT Clinical [place] [address] [facility] [place] [address] documented as of this encounter Procedures Procedure Name Priority Date/Time Associated Diagnosis Comments ECG SCAN Routine 08/28/2023 11:53 AM EDT documented in this encounter Results * Scan Doc: ECG (08/28/2023 11:53 AM EDT) Historical Provider MD FLEMING MGR SCAN EX T ORDR/RSLT documented in this encounter Visit Diagnoses Not on filedocumented in this encounter Care Teams [employer] Program Coordinator Relationship Specialty Start Date End Date Polo Pearce PA [address] [place] [address] PCP - General Internal Medicine 06/09/21 documented as of this encounter
--- OUTSIDE RECORDS SUMMARY | 2023-09-20 14:29 | XMS_ITS | Encounter Summary ---
[place] [address] Care Team Providers Care Intraoperative Neuro Tech Name Role Phone Polo Pearce Primary Care Provider [phone] Reason for Referral * Diagnostic Test (Routine) - New Request Specialty Diagnoses / Procedures Referred By Jayant harris Referred To Contact Diagnoses Mesenteric ischemia Procedures Duplex Study Visceral Arteries, Comp Judith Butler APRN [facility] [place] [address] [facility] Vascular Lab [address] [place] [address] Referral ID Status Reason Start Date Expiration Date Visits Requested Visits Authorized [id number] New Request Specialty Service Requested 08/03/2023 08/02/2024 1 1 Encounter Details Date Type Department Care Team (Late st Contact Info) Description 08/03/2023 9:30 AM EDT Office [place] [address] Judith Butler APRN [facility] [place] [address] Mesenteric ischemia Social History Tobacco Use Types Packs/Day Years Used Date Smoking Tobacco: Never Smokeless Tobacco: Never Alcohol Use Standard Drinks/Week Comments Never 0 (1 standard drink = 0.6 oz pur e alcohol) [facility] Utilities Answer Date Recorded In [...] Sign Reading Time Taken Comments Blood Pressure 109/63 08/03/2023 9:25 AM EDT Pulse 58 08/03/2023 9:25 AM EDT Temperature - - Respiratory Rate - - Oxygen Saturation - - Inhaled Oxygen Concentration - - Weight 99.8 kg (220 lb) 08/03/2023 9:25 AM EDT Height 162.6 cm (5' 4) 08/03/2023 9:25 AM EDT Body Mass Index 37.76 08/03/2023 9:25 AM EDT documented in this encounter Progress Notes * Judith Butler, ROM - 08/03/2023 9:30 AM EDT Vascular Follow-Up Reason for Visit: Loida Roque is a 53 y.o. female presenting for post-op follow up. HPI: 53 y.o. female with PMH: non obstructive CAD (s/p cath 08/2019 with normal coronaries, cath 04/2023 with non obstructive CAD), SVT (s/p ablation), paroxysmal afib, HFpEF, pulmonary emboli (on Eliquis), abdominal pain s/p SMA stent 07/02/2023. Ms. Roque presents to clinic for post-op follow up with studies. She is s/p SMA stent on 07/02/2023. She reports improvement since her discharge with much less nausea than before. She continues to have post-prandial pain, dependent on what type of food she eats and portion size. For example, alarge bowl of fruit yesterday caused her to have pressure and gas only, whereas a plain hamburger on a bun last week caused extreme pain. She denies weight loss. She continues to monitor her weight, diet, and fluid intake as she manages her HFpEF. She reports irregular bowel movements that occur every 1 to 7 days and are challenging to pass. She reports having abdominal pain and high levels of gas for the past 1-2 years. Patient denies CVA or TIA since last clinic appointment. Denies episodes of unilateral extremity weakness, facial droop, acute change in vision or speech. No complaint of UE pain, tissue loss or fatigue. Denies BLE claudication, rest pain and tissue loss. Denies chest pain and dyspnea presently, but has had to take her SL nitroglycerin since her discharge (successfully relieving symptoms with 1 to 2 doses). Ms. Zuñiga takes daily statin and Eliquis (PE). Prior Vascular Hx: 07/02/2023: 6 mm X 29 mm VBX placement in the superior mesenteric artery (Alef) Atherosclerotic RF: DM (N) HTN (N) CAD (Y) CHF (Y) HLD (N) CVA (N) Tobacco (N) Problem List: Patient Active Problem List Diagnosis Code Asthma J45.909 Obstructive sleep apnea syndrome G47.33 Restless legs G25.81 Insomnia G47.00 (HFpEF) heart failure with preserved ejection fraction I50.30 Obesity E66.9 Dyslipidemia E78.5 Chest pain R07.9 SVT (supraventricular tachycardia) I47.10 Paroxysmal atrial fibrillation I48.0 Endometriosis N80.9 Stenosis of left carotid artery greater than 50% I65.22 Restrictive lung disease secondary to obesity J98.4, E66.9 Paresthesia of hand, bilateral R20.2 Medications: Current Outpatient Medications on File Prior to Visit Medication Sig Dispense Refill [...] Delayed Release(E.C.) Take 20 mg by mouth once as needed. Infrequent use empagliflozin (Jardiance) 10 mg Tablet Take 1 tablet by mouth daily. 90 tablet 1 rOPINIRole (Requip) 1 mg Tablet Take 2 mg by mouth 2 times daily. loratadine (Claritin) 10 mg Tablet Take 10 mg by mouth daily as needed. fluticasone propionate (FLONASE) 50 mcg/actuation [place], Suspension 1 spray by Each Nare route as needed. gabapentin (Neurontin) 300 mg Capsule Take 600 mg by mouth nightly. topiramate (TOPAMAX) 50 mg Tablet Take 100 mg by mouth nightly. DULoxetine (CYMBALTA) 60 mg capsule Take 60 mg by mouth daily. albuterol (PROVENTIL HFA;VENTOLIN HFA) 90 mcg/Actuation inhaler Inhale 2 puffs into the lungs every4 hours as needed. Use with spacer No current facility-administered medications on file prior to visit. Review of Systems: All other ROS negative except as noted in HPI. Physical Exam: BP 109/63 (BP Location (NBP): Left arm, Patient Position: Sitting, BP Cuff Sizes: Adult (25-34 cm)) Pulse 58 Ht 162.6 cm (5' 4) Wt 99.8 kg (220 lb) BMI 37.76 kg/m?? GEN: Alert and appears stated age. Cooperative. In NAD. HEENT: Normocephalic and atraumatic. CV: RRR. S1/S2 present. Pulm: Clear to auscultation bilaterally. Abd: No palpable aortic pulse or abdominal mass. Soft, non-distended, non-tender to palpation. Skin: Color, texture, turgor normal. No rashes or lesions. Neuro: No gross sensory or motor abnormality. Extremities: Bilateral UE and LE warm and pink. No edema. No wounds. Vascular Exam: R L Radial 2/2 2/2 DP 2/2 2/2 PT 2/2 2/2 Studies: Recent Results (from the past 72 hour(s)) Duplex Study Visceral Arteries, Comp Result Value Ref Range VB Text Report Department: Vascular Surgery Lab Patient: [id number] (ROHAN, MELINDA) CPT: 46994 Referring Physician: MAMIE LARRY Phone: Indications: S/p SMA stenting (07/01) one month f/u, ? patency Findings: Unilateral Waveform PSV cm/s EDV cm/s Patent Dary Visceral Aorta 71 14 Celiac Artery, Proximal [place]-Biphasic 100 22 Celiac Artery, Mid [place]-Biphasic 99 19 Celiac Artery, Distal [place]-Biphasic 94 18 Sup Mes Artery Proximal Bi-Triphasic 316 39 Sup Mes Artery Middle Bi-Triphasic 227 22 Sup Mes Artery Distal Triphasic 136 0 Hepatic Artery No Vis Splenic Artery No Vis Inf Mes Artery No Vis Interpretation: Limited visualization due to overlying bowel gas and body habitus. Patient was not fasting for today's exam. Patent stented superior mesenteric artery with slightly elevated peak systolic velocities just above threshold with a >50% stenosis. This is a new finding compared to the previous exam on 07/05/23. Patent celiac artery with no evidence of hemodynamically significant stenosis. No identifiable change when compared to the previous exam. Unable to visualize the hepatic, splenic and inferior mesenteric arteries on today's exam due to overlying bowel gas; cannot exclude elevated velocities/ stenosis here. Comment: Velocity threshold interpretation within mesenteric artery stents may differ from [place]nee arteries, with thresholds for diagnosis of significant stenosis likely being somewhat higher in stented arteries than shawnee.% To date, there is no evidence based consensus of stent velocity criteria. Therefore, the curre nt interpretation is based on [place] artery thresholds. Previous Celiac/Mesenteric Studies: Date SMA PSV EDV Celiac PSV EDV 427 91 808 27 3230/04/29 289 27 116 20 Current Exam 316 39 100 22 VB Text Report End of Report Assessment/Plan: 53 y.o. female with PMH of non obstructive CAD (s/p cath 08/2019 with normal coronaries, cath 04/2023 with non obstructive CAD), SVT (s/p ablation), paroxysmal afib, HFpEF, pulmonary emboli (on Eliquis), abdominal pain s/p SMA stent 07/02/2023. Ms. Zuñiga with slightly improved symptoms from before her stent placement. Duplex today was limited by bowel gas, which the patient states is a constant issue for her; she did not eat prior to the study. The peak systolic velocity in the SMA stent is 316, compared to 427 pre-stent and 289 with study in the days following stent placement. Ms. Roque has upcoming GI appointment to continue work up for her chronic GI issues. I will review the duplex results today with Dr. Way and amend note if the following plan changes. Plan: - Follow up with mesenteric duplex in 3 months. - Continue daily statin. - Go to ED with increasing abdominal pain. - Contact clinic with any questions or concerns prior to next appointment. Future Appointments Date Time Provider Department Center 08/17/2023 1:15 PM [facility] NM PET MOBILE MH Nuc Med [facility] Rad 08/25/2023 10:00 AM Mary Reyes APRN [facility] GASTRO [facility] 10/26/2023 4:00 PM Jaspreet Kinsey MD [facility] Cardio [facility] 11/22/2023 4:40 PM Porsha Mcdaniels MD [facility] CARD 4A [facility] Judith Butler APRN Department of Vascular Surgery documented in this encounter Plan of Treatment Upcoming Encounters Date Type Department Care Team (Late st Contact Info) Description 10/08/2023 8:30 AM EDT Tech [place] [address] Jose Cook 10/08/2023 9:30 AM EDT Office [place] [address] MD [facility] [place] [address] 10/21/2023 10:30 AM EDT Appointment [place] [address] Mary Reyes DENTAL LABORATORY WORKER [facility] [place] [address] 10/21/2023 11:30 AM EDT Appointment [place] [address] Mary Reyes [facility] [place] [address] 10/21/2023 12:30 PM EDT Appointment [place] [address] Mary Reyes, [facility] [place] [address] 10/21/2023 1:30 PM EDT Appointment [place] [address] Mary Reyes [facility] [place] [address] 10/21/2023 2:30 PM EDT Appointment [place] [address] Mary Reyes, [facility] [place] [address] 10/26/2023 4:00 PM EDT Office Visit Cardiology at [address] [phone] Jaspreet Kinsey MD [facility] [place] [address] 10/28/2023 9:00 AM EDT Office [place] [address] 10/29/2023 10:00 AM EDT Clinical [place] [address] 10/29/2023 10:15 AM EDT Procedure [place] [address] 11/01/2023 5:00 PM EDT Office [place] [address] Selene Browning, [facility] [place] [address] 11/22/2023 4:40 PM EDT Office Visit Cardiology at [address] [phone] Porsha Mcdaniels MD [facility] [place] [address] 12/13/2023 10:00 AM EDT Clinical [place] [address] [facility] [place] [address] documented as of this encounter Visit Diagnoses Diagnosis Mesenteric ischemia Unspecified vascular insufficiency of intestine documented in this encounter Care Teams Intraoperative Neuro Tech Relationship Specialty Start Date End Date Polo Pearce PA [address] [place] [address] PCP - General Internal Medicine 06/09/21 documented as of this encounter
--- OUTSIDE RECORDS SUMMARY | 2023-09-20 14:29 | XMS_ITS | Encounter Summary ---
Author Organization [facility] [place] [address] Care Team Providers Care School Vocational Educator Name Role Phone Polo Pearce Primary Care Provider [phone] Encounter Details Date Type Department Care Team (Late st Contact Info) Description 08/28/2023 [place] [phone] [place] [address] Social History Tobacco Use Types Packs/Day Years Used Date Smoking Tobacco: Never Smokeless Tobacco: Never Alcohol Use Standard Drinks/Week Comments Never 0 (1 standard drink = 0.6 oz pur e alcohol) [facility] Utilities Answer Date Recorded In the past 12 months has [employer], gas, oil, or water [employer] threatened to shut off services in your [...] place to sleep or slept in a care home (including now)? No 06/15/2023 [facility] Inpatient [...] encounter Miscellaneous Notes * Telephone Encounter - Ciro Lovell MD - 08/28/2023 12:06 PM EDT 53F with remote PE on eliquis, SVT ablation 03/2023, HF (LVEF 50, global HK, normal RV), severe PAD (limited to SMA it seems) with an SMA stent (recent duplex 07/2023 suggests > 50% stenosis), non-obstructive cors (cath 04/2023 below, LVEDP 8) and most recently with a PET 08/17/2023 showing septal, anterior wall scar with global reduction in MBFR (EKG portion showing diffuse ST-D) who [facility] few days of exertional RAVI, CP that progressed to sustained CP. While there, EKG shows ST-D rather diffusely which she has demonstrated before and vitals initially normotensive with SBP 100s and HR normal; Tn 700 and pBNP 3000. She's since had intermittent events of bradycardia and hypotension (SBP 70s-80s) without symptoms; chest pain has resolved without intervention. At the time ofmy call, she had only received ASA. She's been entirely adherent to her DOAC and she is not overtlyvolume up. Cr is 1.3 which is around her baseline. No concern for CTPE per provider there. Based on her history of the PET showing globally reduced MBFR in combination with a clean cath, herBMI 38, and age, this is most likely due to microvascular dysfunction +- HF exacerbation, and she needs aggressive risk factor modification. This is less likely microvascular spasm given the PET. I do not think she's had SCAD, though aware of her age and absence of CAD as well; however, her historyper OSH provider doesn't really resemble SCAD. Regarding the septal, anterior wall scar, this couldreflect her microvascular disease. To be safe rather than sorry, will treat her as an NSTEMI with plavix, asa, heparin; clearly she has risk for epicardial cad given the PAD. She's been adherent to he r eliquis and I do not think she's embolized something or has a recurrent PE. Regarding her bradycardia and hypotensive events, these do not seem to be related to pain or nausea - the provider there will attempt some fluids gently. He will call back should anything change. There was no concern for inadvertent AVN injury/ablation during her EP procedure, and she is sinus morgan rather than block onthe EKGs, but something to consider. TTE 06/22/23 Interpretation Summary Normal left ventricle size with mildly reduced LV systolic function. Mild global hypokinesis. LV ejection fraction is approximately 50%. Normal right ventricle. No significant valvular abnormalities. On comparison to the prior echo dated 04/17/2023, there has been a slight decrease in LV systolic function. [facility] 04/2023 Coronary Angiography: Dominance: Right Left Main There was mild diffuse (<=25% stenosis) disease of the entire vessel segment of the left main artery. Left Anterior Descending There was mild diffuse (<=25% stenosis) disease of the entire vessel segment of the left anterior descending artery (LAD). The ostial segment of the LAD had a single discrete 25% stenosis. Left Circumflex There was mild diffuse (<=25% stenosis) disease of the entire vessel segment of the left circumflex artery (LCX). Right Coronary Artery There was mild diffuse (<=25% stenosis) disease of the entire vessel segment of the right coronary artery (RCA). Vascular Access: Vascular Access Management: Mechanical Compression of the right radial artery access site was performed. Conclusions: * Nonobstructive coronary artery disease documented in this encounter Plan of Treatment Upcoming Encounters Date Type Department Care Team (Late st Contact Info) Description 10/08/2023 8:30 AM EDT Tech Visit [place] [phone] Jose Cook 10/08/2023 9:30 AM EDT Office [place] [address] MD [facility] [place] [address] 10/21/2023 10:30 AM EDT Appointment Nuclear Medicine at [place] [phone] Mary Reyes [facility] [place] [address] 10/21/2023 11:30 AM EDT Appointment [place] [phone] Mary Reyes [facility] [place] [address] 10/21/2023 12:30 PM EDT Appointment [place] [phone] Mary Reyes [facility] [place] [address] 10/21/2023 1:30 PM EDT Appointment [place] [phone] Mary Reyes [facility] [place] [address] 10/21/2023 2:30 PM EDT Appointment [place] [address] Mary Reyes APRN [facility] [address] 10/26/2023 4:00 PM EDT Office Visit Cardiology at [address] [phone] Jaspreet Kinsey MD [facility] [place] [address] 10/28/2023 9:00 AM EDT Office [place] [address] 10/29/2023 10:00 AM EDT Clinical [place] [address] 10/29/2023 10:15 AM EDT Procedure [place] [address] 11/01/2023 5:00 PM EDT Office [place] [phone] Selene Browning, [facility] [place] [address] 11/22/2023 4:40 PM EDT Office Visit Cardiology at [address] [phone] Porsha Mcdaniels MD [facility] [place] [address] 12/13/2023 10:00 AM EDT Clinical [place] [address] Lucero Romero, RD [facility] [place] [address] documented as of this encounter Visit Diagnoses Not on filedocumented in this encounter Care Teams School Vocational Educator Relationship Specialty Start Date End Date Polo Pearce PA [address] [place] [address] PCP - General Internal Medicine 06/09/21 documented as of this encounter
--- OUTSIDE RECORDS SUMMARY | 2023-09-20 14:29 | XMS_ITS | Encounter Summary ---
Author Organization [facility] Address [facility] [place] [address] Care Team Providers Care Machine Stripper Cutter Name Role Phone Polo Pearce Primary Care Provider [phone] Encounter Details Date Type Department Care Team (Latest Contact Info) Description 08/03/2023 Travel Social History Tobacco Use Types Packs/Day Years Used Date Smoking Tobacco: Never Smokeless Tobacco: Never Alcohol Use Standard Drinks/Week Comments Never 0 (1 standard drink = 0.6 oz pur e alcohol) [facility] Utilities Answer Date Recorded In the [...] in a longterm (including now)? No 06/15/2023 [facility] Inpatient Questions Answer Date Recorded Does [...] AM EDT Tech [place] [address] Jose Cook 10/08/2023 9:30 AM EDT Office Visit [place] [address] MD [facility] [place] [place] [address] 10/21/2023 10:30 AM EDT Appointment [place] [address] Mary Reyes [facility] [place] [place] [address] 10/21/2023 11:30 AM EDT Appointment [place] [phone] Mary Reyes GALVANIZER [facility] [place] [address] 10/21/2023 12:30 PM EDT Appointment [place] [address] Mary Reyes, [facility] [place] [address] 10/21/2023 1:30 PM EDT Appointment [place] [address] Mary Reyes, [facility] [place] [address] 10/21/2023 2:30 PM EDT Appointment [place] [address] Mary Reyes, [facility] [place] [address] 10/26/2023 4:00 PM EDT Office Visit Cardiology at [address] [phone] Jaspreet Kinsey MD [facility] [place] [address] 10/28/2023 9:00 AM EDT Office [place] [address] 10/29/2023 10:00 AM EDT Clinical Support [place] [address] 10/29/2023 10:15 AM EDT Procedure [place] [address] 11/01/2023 5:00 PM EDT Office Visit [place] [address] Selene Browning, PhD [facility] [place] [address] 11/22/2023 4:40 PM EDT Office Visit Cardiology at [address] [phone] Porsha Mcdaniels MD [facility] [place] [address] 12/13/2023 10:00 AM EDT Clinical Support [place] [phone] [facility] [place] [address] documented as of this encounter Visit Diagnoses Not on filedocumented in this encounter Care Teams Machine Stripper Cutter Relationship Specialty Start Date End Date Polo Pearce PA [address] [place] [address] PCP - General Internal Medicine 06/09/21 documented as of this encounter
--- OUTSIDE RECORDS SUMMARY | 2023-09-20 14:29 | XMS_ITS | Encounter Summary ---
Author Organization [facility] Address [facility] [place] [address] Care Team Providers Care Aspnet Developer Name Role Phone Polo Pearce Primary Care Provider [phone] Encounter Details Date Type Department Care Team (Late st Contact Info) Description 08/28/2023 1:05 PM EDT Ancillary Procedure [place] [address] Jaspreet Kinsey MD [facility] [place] [address] Social History Tobacco Use Types Packs/Day Years Used Date Smoking Tobacco: Never Smokeless Tobacco: Never Alcohol Use Standard Drinks/Week Comments Never 0 (1 standard drink = 0.6 oz pur e alcohol) [facility] Utilities Answer Date Recorded In the past 12 months has [employer], gas, oil, or water [employer] threatened to shut off services in your [...] AM EDT Tech [place] [phone] Jose Cook 10/08/2023 9:30 AM EDT Office [place] [address] MD [facility] [place] [address] 10/21/2023 10:30 AM EDT Appointment Nuclear Medicine at [place] [phone] Mary Reyes APRN [facility] [place] [address] 10/21/2023 11:30 AM EDT Appointment [place] [address] Mary Reyes, [facility] [place] [address] 10/21/2023 12:30 PM EDT Appointment [place] [address] Mary Reyes, [facility] [place] [address] 10/21/2023 1:30 PM EDT Appointment [place] [address] Mary Reyes, [facility] [place] [address] 10/21/2023 2:30 PM EDT Appointment [place] [address] Mary Reyes, [facility] [place] [place] [address] 10/26/2023 4:00 PM EDT Office Visit Cardiology at [address] [phone] Jaspreet Kinsey MD [facility] [place] [address] 10/28/2023 9:00 AM EDT Office [place] [address] 10/29/2023 10:00 AM EDT Clinical [place] [address] 10/29/2023 10:15 AM EDT Procedure [place] [address] 11/01/2023 5:00 PM EDT Office [place] [address] Selene Browning, PhD [facility] [place] [address] 11/22/2023 4:40 PM EDT Office Visit Cardiology at [place] [phone] Porsha Mcdaniels MD [facility] [place] [address] 12/13/2023 10:00 AM EDT Clinical [place] [address] [facility] [place] [address] documented as of this encounter Procedures Procedure Name Priority Date/Time Associated Diagnosis Comments FILM LIBRARY STORAGE ONLY CT CHEST Routine 08/28/2023 1:00 PM EDT documented in this encounter Results * Film Library- Storage Only CT Chest (08/28/2023 1:00 PM EDT) Narrative [facility] - 08/28/2023 1:00 PM EDT This exam is auto-finalizing. It's purpose is for storage only. Jaspreet Kinsey MD IMG FILM LIBRARY ORD ERABLES [place], [place] documented in this encounter Visit Diagnoses Not on filedocumented in this encounter Care Teams Aspnet Developer Relationship Specialty Start Date End Date Polo Pearce PA [address] [place] [address] PCP - General Internal Medicine 06/09/21 documented as of this encounter
--- OUTSIDE RECORDS SUMMARY | 2023-09-20 14:31 | XMS_ITS | Encounter Summary ---
Author Organization [facility] [place] [address] Care Team Providers Care Sales Service Representative Name Role Phone Polo Pearce Primary Care Provider [phone] Reason for Referral * Consultation (Routine) - Duplicate Referral Specialty Diagnoses / Procedures Referred By Jayant harris Referred To Contact Gastroenterology Diagnoses Mesenteric artery stenosis Terrence Keating MD [facility] [address] [facility] [address] [place] [address] Referral ID Status Reason Start Date Expiration Date Visits Requested Visits Authorized [id number] Duplicate Referral Consult, Test & Treat 07/09/2023 07/08/2024 1 1 * Home Health Care (Routine) - Authorized Specialty Diagnoses / Procedures Referred By Contjulita t Referred To Contact Diagnoses Paroxysmal atrial fibrillation Chest pain, unspecified type Heart failure with preserved ejection fraction, unspecified HF chronicity Terernce Keating MD [facility] [place] [address] Home Health & [address] [place] [address] Referral ID Status Reason Start Date Expiration Date Visits Requested Visits Authorized [id number] Authorized Consult, Test & Treat 07/09/2023 01/05/2024 999 999 Reason for Visit * Auth/Cert (Routine) Specialty Diagnoses / Procedures Referred By Contac t Referred To Contact Diagnoses NSTEMI (non-ST elevated myocardial infarction) NSTEMI Procedures ER IPI Terrence Keating MD [facility] [place] [address] [facility] Referral ID Status Reason Start Date Expiration Date Visits Re quested Visits Authorized [id number] 1 1 Encounter Details Date Type Department Care Team (Latest Contact Info) Description 06/14/2023 11:01 PM EDT - 07/09/2023 4:44 PM EDT Hospital Encounter Heart and Vascular Unit Level 4 Wing B at [place] [phone] Jaspreet Kinsey MD [facility] [place] [address] Lino Calles MD [facility] [place] [address] Eufemia Copeland MD [facility] [place] [address] Ailyn Irvin MD [facility] [place] [address] Terrence Keating MD [facility] [place] [address] Paroxysmal atrial fibrillation; Chest pain, unspecified type; NSTEMI (non-ST elevated myocardial infarction); Lower abdominal pain; Mesenteric artery stenosis; Heart failure with preserved ejection fraction, unspecified HF chronicity; Chronic kidney disease, unspecified CKD stage Discharge Disposition: Home with [facility] Social History Tobacco Use Types Packs/Day Years Used Date Smoking Tobacco: Never Smokeless Tobacco: Never Alcohol Use Standard Drinks/Week Comments Never 0 (1 standard drink = 0.6 oz pur e alcohol) [facility] Utilities Answer Date Recorded In [...] Sign Reading Time Taken Comments Blood Pressure 105/58 07/09/2023 3:09 PM EDT Pulse 55 07/09/2023 3:09 PM EDT Temperature 36.4 ??C (97.6 ??F) 07/09/2023 3:09 PM ED T Respiratory Rate 18 07/09/2023 3:09 PM EDT Oxygen Saturation 98% 07/09/2023 3:09 PM EDT Inhaled Oxygen Concentration - - Weight 101 kg (222 lb 9.6 oz) 07/09/2023 4:25 AM EDT Height 162.6 cm (5' 4) 06/14/2023 11:08 PM EDT Body Mass Index 38.21 06/14/2023 11:08 PM EDT documented in this encounter Discharge Summaries * Terrence Keating MD - 07/09/2023 3:40 PM EDT Discharge Summary Patient Name: Loida Roque Patient Age: 53 y.o. Language: Slovenian Race: White Ethnicity: Not nor Admit date: 06/14/2023 Discharge date and time: 07/09/2023 3:31 PM Attending Physician: Terrence Keating MD Discharge Physician: Terrence Keating MD Follow-up Recommendations for Providers: Inpatient Provider Contact Information: For questions regarding this document or issues relating to this hospitalization on the Medical Service, please contact your inpatient physician through the [facility] Trauma Registrar . Issues afterhours and on weekends will [...] bilateral Paroxysmal atrial fibrillation SVT (supraventricular tachycardia) Obesity Dyslipidemia Obstructive sleep apnea syndrome Insomnia (HFpEF) heart failure with preserved ejection fraction Restless legs Asthma Operations/Major Procedures/Imaging: Results for orders placed or performed during the hospital encounter of 06/14/23 XR Abdomen Flat & Upright (Exam End: 06/17/2023 11:44 AM) Narrative EXAMINATION: XR ABDOMEN FLAT AND UPRIGHT CLINICAL HISTORY: patient with foul odor from pallavi michelle. hx hysterectomy, LLQ tenderness, constipation TECHNIQUE: Supine and upright views the abdomen. COMPARISON: None. FINDINGS: There is a normal amount of stool and small amount of gas present scattered throughout a nondistended colon. There are no dilated loops of small bowel. No free air or pneumatosis. Impression Normal bowel gas pattern. Thank you for letting us participate in the care of this patient. If you are a health care provider and have any questions regarding this report, please contact the number below. For patients who have questions please contact the health professional healthcare representative that requested 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 Electronically signed by: Wilton Cabrera MD, [facility] ([phone]), at 06/17/2023 5:[address] Abdomen & Pelvis w Contrast (Exam End: 06/21/2023 3:39 PM) Narrative EXAMINATION: CT ABDOMEN AND PELVIS W CONTRAST CLINICAL HISTORY: Abdominal pain, acute, nonlocalized non-specific abd pain, epigastric tenderness, c/f non-cardiac chest pain TECHNIQUE: Helical CT of the abdomen and pelvis following the intravenous administration of contrast. Administered 120.0 ml of OMNIPAQUE 350.00 mg/ml. Oral contrast was administered. COMPARISON: None FINDINGS: Lower chest: Bibasilar groundglass opacities, possibly related to atelectasis given dependent predilection. Liver: Normal size and attenuation without lesions. Bile ducts: Nondilated. Gallbladder: No calcified gallstones. Normal caliber wall. Pancreas: Normal attenuation without ductal dilatation. Spleen: Normal. Adrenals: Normal. Kidneys: Normal. Urinary Bladder: Normal. Vasculature: No abdominal aortic aneurysm. Severe focal stenosis of the proximal SMA. The portal vein is patent. Lymph Nodes: No enlarged lymph nodes. Bowel: Nondilated small and large bowel. Normal appendix. Peritoneum and retroperitoneum: No free fluid or loculated fluid collection. No pneumoperitoneum. No mesenteric inflammation. Abdominal wall: Normal. Reproductive organs: Absent uterus. No adnexal mass. Osseous structures: No suspicious lesions. Impression 1. No acute process in the abdomen or pelvis. 2. Severe stenosis of the proximal SMA. 3. Bibasilar groundglass opacities, favored atelectasis given dependent predilection, however, a superimposed infectious/inflammatory process or alveolar edema is not excluded. Thank you for letting us participate in the care of this patient. If you are a health care provider and have any questions regarding this report, please contact the number below. For patients who have questions please contact the health professional healthcare representative that requested 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 Electronically signed by: RONDA DUFFY MD, [facility] ([phone]), at 06/22/2023 7:59 AM XR Chest One View (Exam End: 06/22/2023 11:42 AM) Narrative EXAMINATION: XR CHEST ONE VIEW CLINICAL HISTORY: Severe chest pain with shortness of breath TECHNIQUE: 1 view of the chest COMPARISON: 09/28/2022 FINDINGS: The cardiomediastinal silhouette is stable Decreased lung volumes. The lungs are clear. No pleural effusion or pneumothorax Impression No acute pulmonary findings Thank you for letting us participate in the care of this patient. If you are a health care provider and have any questions regarding this report, please contact the number below. For patients who have questions please contact the health professional healthcare representative that requested 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 Electronically signed by: Itz Hayward MD, [facility] ([phone]), at 06/22/2023 11:47 AM US Abdomen Limited (Exam End: 06/28/2023 12:22 PM) Result Value WORKSTATION ID [id number] Narrative Abdominal (Signed Final 06/28/2023 02:08 pm) PATIENT INFO: ID #: [id number] : [birth year] (53 yrs)(F) Name: LOIDA Visit Date: 06/28/2023 12:20 pm ROHAN PERFORMED BY: Attending: Sigrid Owens MD Resident: Rafaela Huddleston MD Performed By: Deena Cabrera RDMS Referred By: AILYN IRVIN Location: [place] SERVICE(S) PROVIDED: UABDLIM - Abdominal Limited Survey Single [id number] Organ or Quadrant - [id number] INDICATIONS: RUQ pain, R/o Gall bladder colic, [...] No ascites seen in the imaged RUQ Impression 1. Normal gallbladder. Specifically, no cholelithiasis or evidence of acute cholecystitis. No biliary ductal dilatation. 2. Normal sonographic appearance the liver and right kidney. 3. Limited evaluation of the pancreas, partially obscured by bowel gas. I have personally reviewed the image(s) and the resident's interpretation and agree with the findings, Sigrid Owens MD at 06/28/2023 2:02 PM Electronically signed by: Sigrid Owens MD, [facility] ([phone]), at 06/28/2023 2:02 PM Thank you for letting us participate in the care of this patient. If you are a health care provider and have any questions regarding this report, please contact the number above. For patients who have questions, please contact the health professional healthcare representative that requested 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 Sigrid Owens, [facility] Ocularist Electronically Signed Final Report 06/28/2023 02:08 pm VS Arteriogram Mesenteric Vascular Surgery (Exam End: 07/02/2023 1:32 PM) Narrative Vascular Surgery Interventional Procedure Note Pre-Procedure Diagnosis: Mesenteric stenosis Post-Procedure Diagnosis: Same Procedure: - Rt. femoral arterial access with fluoroscopic and ultrasound guidance - second order selective catheterization of superior mesenteric artery -6 mm X 29 mm VBX placement in the superior mesenteric artery Surgeon(s): MD Henrietta Glover MD Intra-procedural Medications: Versed dose: 1.5 mg Fentanyl dose: 75 mcg Local anesthetic: 10 cc 1% lidocaine Heparin: Yes 48644 Units Protamine: No mg Antibiotics: Ancef Fluoro Time: 9 min Contrast: 65 mL Sheath Size: 7 Fr Findings: -Flush aortography of the visceral vasculature was performed. This demonstrated a widely patent celiac artery, and a patent mesenteric artery with stenosis in the most proximal portion. - The superior mesenteric artery was selectively cannulated, and a 8 mm X 29 mm VBX stent graft was deployed. No post dilation was performed. The mesenteric artery was free of any stenosis [...] conscious sedation by the Interventional Radiology nurse during continuous monitoring of pulse, blood pressure and oxygen saturation. After injection of local anesthetic, percutaneous access was obtained via the Rt. femoral artery under fluoroscopic and ultrasound guidance using a micro puncture technique. A cope wire was inserted and upsized to a 5French sheath over a J-wire. A 5F flush catheter was then advanced into the infrarenal aorta over the wire. Diagnostic arteriography was performed with the above findings. We exchanged the sheath for a 7 Slovak roll contour grinder steerable sheath over a stiff wire. A Glidewire and Kumpe catheter were used to selectively cannulate the superior mesenteric artery. Direct angiography of the superior mesenteric artery was performed, confirming the results of the nonselective aortography performed. The lesion was predilated with a 4 mm x 40 mm Gallagher balloon, and then a 6 mm X 29 mm VBX stent graft was deployed. Selective mesenteric angiography demonstrated a satisfactory result with [...] procedure. Henrietta Judge MD 07/07/2023 10:48 AM XR Chest One View (Exam End: 07/03/2023 3:18 PM) Result Value WORKSTATION ID [id number] Narrative EXAMINATION: XR CHEST ONE VIEW CLINICAL HISTORY: Acute onset shortness of breath, concern for CHF TECHNIQUE: Portable AP view of the chest COMPARISON: 06/22/2023 FINDINGS: The cardiac silhouette is enlarged The lungs are clear. No pleural effusion or pneumothorax Impression No pulmonary edema or pleural effusion Thank you for letting us participate in the care of this patient. If you are a health care provider and have any questions regarding this report, please contact the number below. For patients who have questions please contact the health professional healthcare representative that requested 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 Electronically signed by: Itz Hayward MD, [facility] ([phone]), at 07/03/2023 3:27 PM Echocardiogram from 06/22/2023 with mild reduction in LV function of 50% with normal RV and no valve pathology. Diastolic dysfunction based on tissue doppler. Catheterization from 04/18/23 reviewed: Left Main There was mild diffuse (<=25% [...] segment of the right coronary artery (RCA). cMRI - 04/21/2023 - mid myocardial stripe of LGE PET sarcoid - negative for sarcoid with anterior appearance of scar History of Presentation: Per History and Physical 06/20/23 Loida Roque is a 53 y.o. female with hx of mild nonobstructive mid LAD ASCVD on CCTA 09/2022, remote cardiac catheterization with normal coronaries 08/2019, supraventricular tachycardia (AVNRT since 06/2021) s/p EPS and SVT ablation on 04/01/[address] Tovar, paroxysmal A-fib (diagnosed on 10/20/2022), HFpEF, pulmonary emboli on Eliquis, and restrictive lung disease secondary to obesity who presents with chest pain. The patient was recently admitted at [facility] from 04/16/23 to 04/19/2023 as a transfer from [facility] due to exertional chest pressure and breathlessness. Patient had positive troponin but flat, nonspecific EKG changes, elevated BNP. TTE on 04/17 showed progressing anterolateral motion normalities, preserved EF. She underwent left heart cath on 04/18 showed nonobstructive ASCVD. She was started on amlodipine2.5 mg daily for possible microvascular disease. 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 The patient underwent outpatient stress PET CT on 04/30/23 that showed no evidence of active myocardial inflammation but revealed a myocardial scar. The patient saw Dr. Hoang 05/10/23, and since she has no significant epicardial CAD, no sarcoid, and no concomitant arrhythmias, a comprehensive assessment was pursued, with the anticipation of referral to Dr. Salazar, a MINOCA expert, if workup unrevealing. Patient presented to the ED with malaise over the last week, evolving into severe chest pain, diaphoresis, shortness of breath over the last two days. The symptoms have been constant and worse with deep breathing. At OSH Vitals: HD EKG:HR 68, sinus rhythm with PACs, anterolateral ST depressions (c/w prior EKGs during chest pain episodes). Labs WBC WNL, proBNP 3800, and potassium 2.2 (being repleted). Troponin was markedly elevated > 800 (ULN 60). POCUS showed no effusion. Chest CTA showed no evidence of PE, but did show diffuse bilateral and symmetrical GG marking throughout both lung teran. Interventions: -Low dose NTG infusion -heparin infusion without bolus (on apixaban). Given her ongoing chest pain, markedly elevated troponin and proBNP without explanation for non-cardiac etiology, patient was accepted for transfer to [facility]. Brief Summary: Loida Roque is a 53 y.o. 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 Tovar, paroxysmal A-fib (diagnosed on 10/20/2022), HFpEF, pulmonary emboli on Eliquis, and restrictive lung disease secondary to obesity who presented to OSH with chest pain. Patient has recently undergone extensive workup for ACS (including cMRI and cardiac PET) that has been unrevealing. 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 The patient current presentation is different with positive cardiac markers. Patient transferred to [facility] for further work-up and evaluation. On arrival, patient does appear to be volume overloaded. Cardiology consulted for MINOCA, and rec diuresis. Course c/b profound hypokalemia (K 2.9 on arrival) requiring aggressive repletion. Patient diuresed well, with net negative 1L on IV lasix. dry weight <220lbs. Hospital Course: #NSTEMI, likely II #C/f MINOCA # Elevated troponins most likely demand. Underwent extensive cardia work last visit ,including cardiac cath, Cardiac MRI(shows evidence of sarcoid) however stress PET shows negative for sarcoid with anterior appearance of scar. -U tox - negative .Consulted general cardiology , her symptoms are chronic and due to a combination of microvascular dysfunction and HFpEF in the milieu of chronic metabolic disease, restrictive lung disease, anddeconditioning. She has atherosclerotic disease with evidence of infarct, but no obstructive epicardial coronary disease. . Very poor diastolic function based on tissue Doppler. Iso chronicity and extensive work up, decision was made to medically manage her chronic angina . Her anti anginal's were maximized with addition of ranolazine and increase doses, Imdur discontinued due to migraines. ASA 81mg PO daily, amlodipine 2.5mg , Atorvastatin 40mg PO daily, -Toprol XL12.5 daily,Ranolazine at 1000mg BD(Nomral Qtc ~450). - R/o arrhythmic burden contribution with zio on discharge. - Outpatient F/u with once euvolemic. #SMA artery stenosis S/p Mesenteric angiogram and stent patient reporting longstanding intermittent LLQ pain. , sometimes epigastric. Pain is consistent with post prandial worsening. - KUB no revealing findings.- CT A/P :Severe stenosis of the proximal SMA .duplex visceral arteries: Patent superior mesenteric artery with elevated velocities consistent with 50% or greater stenosis in the proximal segment. Patent proximal to mid celiac artery with no evidence of significant stenosis. RUQ negative for cholecystitis. Vascular was consulted iso worseningpost prandial pain.Underwent mesenteric angiogram with stent - Vascular will arrange outpatient follow up with mesenteric duplex, follow up currently scheduled on 08/02 #Abdominal pain The etiology of the patient's abdominal pain remains unclear. Initially suspected to be due to SMA stenosis, the pain has persisted despite SMA stenting. Pancreatitis is deemed unlikely given normal lipase levels, and liver function tests are unremarkable, as indicated by the RUQUS from 06/27. EGD co lonoscopy yielded few findings, although biopsies were taken from the stomach, duodenum, and colon.Continued supportive care is recommended, with follow-up pathology assessment. Scheduled antiemetics prior to meals are suggested to alleviate symptoms. - Supportive care - Scheduled anti emetics prior to meals - F/u path - Referral to GI clinic #Decompensated HFpEF ISO up trending weights and Very poor diastolic function based on tissue Doppler, Patient was diuresed with IV lasix as needed with adequate UO. Clinically she was at her baseline with SOB on exertion which is chronic. Her dc weight ~ <220 -resume robert torsemide #Bibasilar atelectasis #restrictive lung disease secondary to obesity CT A/P -Bibasilar groundglass opacities, favored atelectasis given dependent predilection, however,a superimposed infectious/inflammatory process or alveolar edema is not excluded.Received IV diuretics. Afebrile , No White count , ABX not indicated at this time Incentive spirometer in hospital. #pulmonary emboli on Eliquis #supraventricular tachycardia (AVNRT since 06/2021) #paroxysmal A-fib (diagnosed on 10/20/2022), - Transiently on heparin. - Resume home apixaban #Migraines - continue home nurtec q48hr dose adjusted after initiation of ranolazine - migraine cocktail PRN in hospital Vital Signs at Discharge: BP: 105/58, Heart Rate: 55, Temp: 36.4 ??C (97.6 ??F), Resp: 18, BMI (Calculated): 38.14 Height: 162.6 cm (5' 4) (06/14/23 2308) Weight: 101 kg (222 lb 9.6 oz) (07/09/23 0425) Functional and Cognitive Status: Aox4. Patient stable today. Reports feeling better. Discharge Conditions/Prognosis: stable Discharge to: home Updated Allergies/ADRs: Allergies Allergen Reactions Codeine Other (See Comments) Per pt it causes severe jittery and uncomfortable feeling Acetaminophen Other (See Comments) Makes her jittery, feel weird and cause swelling in upper/lower extremities Clobetasol Rash Other reaction(s): Skin Rash Immunizations Given this Hospitalization: Immunization History Administered Date(s) Administered Moderna Covid-19 Monovalent 12Yr+ (Filling Station Attendant 100mcg) 03/06/2020, 04/03/2020 Discharge Medications: Your Medications [...] weight gain + increasing shortness of breath. uflo05-09 minutes prior to a dose of torsemide). 2.5 mg Quantity: 30 tablet Refills: 0 nitroGLYcerin 0.4 mg sublingual tablet Commonly known as: Nitrostat Place 1 tablet under the tongue every 5 minutes as needed for Chest pain. 0.4 mg Quantity: 90 tablet Refills: 12 Nurtec ODT 75 mg disintegrating tablet Take 75 mg by mouth daily. Generic drug: rimegepant 75 mg Refills: [address] capsule Commonly known as: PriLOSEC Take 20 mg by mouth once as needed. Infrequent use 20 mg Refills: 0 rOPINIRole 1 mg tablet Commonly known as: [...] by mouth 2 times daily. 40 mg Refills: 0 Smoking Status at Discharge: Social History Tobacco Use Smoking Status Never Smokeless Tobacco Never Instructions Given to Patient at Discharge: Patient Instructions Call your doctor if: Chest pain, shortness of breath, pain or swelling in legs occurs. If you have non-emergent questions between now and the time of your follow up appointments: During 8am-5pm Wednesday through Wednesday call [phone] to speak with a nurse in the cardiology clinic All other times call [phone] and ask to speak to the manager of production business operations manager. Return to work: One week Driving: No driving for 48 hours after catheterization. Follow up Appointments: PCP JOCY Franco [phone] 11:30am on July 19. Cardiology office will call you regarding your appointment with Dr. Kinsey. General Instructions None Future Appointments and Orders Future Appointments and Orders Future Appointments Provider Department Dept Phone 07/26/2023 3:20 PM Jaspreet Kinsey MD Cardiology at [place] Arrive at: [facility] [address] [phone] 07/29/2023 8:00 AM Porsha Mcdaniels MD Cardiology at [facility] Arrive at: [place] [address] [phone] 08/03/2023 8:30 AM Eladio Boyer Vascular Lab at [facility] Arrive at: [place] [address] [phone] 08/03/2023 9:30 AM Judith Butler APRN Vascular Surgery at [facility] Arrive at: [place] [address] [phone] 09/02/2023 2:40 PM Jaspreet Kinsey MD Cardiology at [place] Arrive at: [facility] [address] [phone] Discharge References/Attachments None Greater than 30 minutes was spent on this discharge including documentation, [id number]-uq-[id number] time withthe patient, patient education, telephone order clerk, coordination with pharmacy and other patient care. Terrence Keating MD 07/09/2023 documented in this encounter Discharge Instructions * Patient Instructions* Terrence Keating MD - 07/09/2023 3:30 PM EDT Call your doctor if: Chest pain, shortness of breath, pain or swelling in legs occurs. If you have non-emergent questions between now and the time of your follow up appointments: During 8am-5pm Wednesday through Wednesday call [phone] to speak with a nurse in the cardiology clinic All other times call [phone] and ask to speak to the manager of production business operations manager. Return to work: One week Driving: No driving for 48 hours after catheterization. Follow up Appointments: PCP JOCY Franco [phone] 11:30am on July 19. Cardiology office will call you regarding your appointment with Dr. Kinsey. documented in this encounter Medications at Time of Discharge Medication Sig Dispensed Refills Start Date End Date atorvastatin (Lipitor) 40 mg tablet Take 1 [...] nightly as needed. empagliflozin (Jardiance) 10 mg TabletIndications:Chroni c heart failure with preserved ejection fraction Take 1 tablet by mouth daily. 90 tablet 1 06/11/2021 rOPINIRole (Requip) 1 mg Tablet Take 2 mg by mouth 2 times daily. 07/16/2020 loratadine (Claritin) 10 mg Tablet Take 10 mg by mouth daily as needed. fluticasone propionate (FLONASE) 50 mcg/actuation [place], Suspension 1 spray by Each Nare route [...] tablet Take 0.5 tablets by mouth daily. 30 tablet 12 07/10/2023 07/26/2023 ranolazine ER (Ranexa) 1,000 mg ER 12 hr tablet Take 1 tablet by mouth 2 times daily for 30 days. 60 tablet 07/09/2023 07/26/2023 torsemide (Demadex) 20 mg tablet Take 2 tablets by mouth 2 times daily. 05/10/2023 07/12/2023 amLODIPine (Norvasc) 2.5 mg tablet Take 1 tablet by mouth daily. 90 tablet 3 04/23/2023 09/10/2023 omeprazole (PriLOSEC) 20 mg Capsule, Delayed Release(E.C.) Take 20 mg by mouth daily. Infrequent use 01/27/2022 08/25/2023 documented as of this encounter Progress Notes * Heidy Paris RN - 07/09/2023 4:24 PM EDT Patient AVS reviewed, questions answered, PIV removed intact, VSS, patient discharge to home with VNA * Nani Mendoza RN - 07/09/2023 1:02 PM EDTSummary: DISCHARGE PLANNING Per team pt would benefit from VNA for an RN to ensure pt is managing her meds appropriate s/p NSTEMI and is using her CPAP at home. Pt should be able to d/c this afternoon and will need transport home at approximately 4pm, per the team. Please refer to: [facility] [address] [place] [address] PHONE: [phone] FAX: [phone] *For RN RICARDO: 07/09/23 Nani Mendoza MSN-Ed, RN ACM Cardiac Research Nurse and Neuro/Neurocrit/ENT Interim Controller. * Mary Castaneda RCP - 07/09/2023 4:37 AM EDT Respiratory Therapy NIV Note NIV Settings: NIV Mode: S/T BIPAP 22/16 21% per patient's chart. Patient confirmed settings sound correct. NIV Measurements: Resp: 14 Mve: 793 Leak (L/min): 16 L/min Vte: 849 SpO2: 97 % Skin Assessment: NIV Skin Assessment WDL: WDL Mepilex Applied: No Nares Assessment WDL: WDL Assessment: Received patient on RA. Patient stated that her oxygen levels have been decreasing at night on the CPAP of 12 that we have had her on. RN confirmed this from the previous night as well. Patient states that she wears BIPAP with high settings at home and not CPAP. Referencing an order from her chart during a previous admission shows 22/16 for ordered BIPAP settings. Patient states that 2 2/16 sounds correct. Spoke to provider to have order changed to BIPAP and placed patient on 22/16 21%. She was complaint with BIPAP overnight without incident/desaturation event. Plan: Continue to support with NIV Mary Castaneda RCP * Heidy Paris RN - 07/08/2023 5:49 PM EDT OUTCOME EVALUATION NOTE: OUTCOME SUMMARY: Patient AOx4, on RA, on tele, VSS. NO reports of CP, and SOB. Ambulated in room and around unit independently. Patient complained of new onset of chest pain in AM, followed by nausea. EKG was taken, 1 dose of SL nitro given and Zofran. Relieved of both back to patients stated baseline. PLAN MOVING FORWARD: Discharge Planning as appropriate INDIVIDUALIZED FALL PREVENTION INTERVENTIONS: Patient-specific fall risk factors per assessment: [current deficits]: unfamiliar environment, wires Assistance [level of assistance required for transfers and ambulation]: Independent Supervision [direct monitoring required during toileting and ADLs]: Independent Surveillance [continuous indirect monitoring]: frequent rounding. tele Patient-specific fall prevention interventions for sensory deficits provided, if applicable: Room near nurse station, call lombardo within reach, lighting adjusted, bed in lowest position. CPG GOAL OUTCOME EVALUATION: As above * Terrence Keating MD - 07/08/2023 1:00 PM EDT CV HOSPITALIST 2 - [facility] DAILY PROGRESS NOTE Page [phone] to reach a provider 28/09 Admit Date: 06/14/2023 Encounter Date July 08, 2023 Anticipated Discharge Date: 07/09/2023 Hospital Day: 24 Active Hospital Problems Diagnosis NSTEMI (non-ST elevated myocardial infarction) Resolved Hospital Problems No resolved problems to display. 24 Hour Events/Subjective: NAEON - Had an episode of chest pain that resovlved with nitro. - Weight 222 lb; net negative. -Cr stable. Medications: Scheduled Meds: lidocaine 1 patch Transdermal Q24H clopidogreL 75 mg Oral Daily ranolazine ER 1,000 mg Oral BID rimegepant 75 mg Oral Q48H metoprolol succinate XL 12.5 mg Oral Daily senna-docusate 2 tablet Oral BID polyethylene glycoL (MIRALAX) oral powder 17 g Oral Daily amLODIPine 2.5 mg Oral Daily atorvastatin 40 mg Oral QPM DULoxetine DR 60 mg Oral Daily rOPINIRole 2 mg Oral BID gabapentin 600 mg Oral Nightly melatonin 6 mg Oral Nightly topiramate 100 mg Oral Nightly spironolactone 25 mg Oral Daily pantoprazole EC 40 mg Oral Daily sodium chloride 0.9 % (flush) 5 mL Intravenous BID Continuous Infusions: heparin (porcine) infusion 1,050 Units/hr (07/08/23 0802) PRN Meds:.oxyCODONE-acetaminophen, acetaminophen, albuteroL, ondansetron, heparin (porcine) infusion AND heparin (porcine), nitroGLYcerin, simethicone, loratadine, sodium chloride 0.9 % (flush), lidocaine Objective: Last value Range last 24 hrs Temp: 37.2 ??C (98.9 ??F) Temp: [36.3 ??C (97.4 ??F)-37.2 ??C (98.9 ??F)] Heart Rate: 60 Heart Rate from SpO2: 53 bpm Heart Rate: [52-71] BP: 101/58 BP: (92-119)/(46-67) Resp: 17 Resp: [16-17] SpO2: 99 % SpO2: [95 %-100 %] Height: 162.6 cm (5' 4) Weight: 100.8 kg (222 lb 3.6 oz) BMI (Calculated): 38.14 BMI Classification: Obese Admit weight: 100.79 kg Patient Vitals for the past 168 hrs: Weight 07/08/23 0342 100.8 kg (222 lb 3.6 oz) 07/07/23 0602 100.8 kg (222 lb 4.8 oz) 07/06/23 0539 100.2 kg (220 lb 12.8 oz) 07/05/23 0405 100.7 kg (222 lb) 07/04/23 0334 102 kg (224 lb 12.8 oz) 07/03/23 0552 103.9 kg (229 lb) 07/02/23 0500 103.9 kg (229 lb 1.6 oz) Intake/Output Summary (Last 24 hours) at 07/08/20232019 Last data filed at 07/08/20231999 Gross per 24 hour Intake 300 ml Output 1300 ml Net -1000 ml Physical Exam: Physical Exam Constitutional: In no apparent distress. Cardiovascular: Rate and Rhythm: Normal rate and regular rhythm. Pulmonary: Effort: Pulmonary effort is normal. Breath sounds: Normal breath sounds. Abdominal: General: There is no distension. Palpations: Abdomen is soft. Tenderness: There is abdominal tenderness. There is no guarding or rebound. Musculoskeletal: Cervical back: Neck supple. No rigidity. Right lower leg: No edema. Left lower leg: No edema. Skin: General: Skin is warm and dry. Neurological: General: No focal deficit present. Mental Status: She is alert. Labs: Recent Labs 07/08/23 0552 07/07/23 0351 07/06/23 0354 07/05/23 0505 07/04/23 0347 WBC 7.3 7.9 7.7 8.9 8.2 HGB 12.3 13.8 14.7 13.7 13.5 HCT 36.3 41.0 43.8 41.4 40.0 PLATELET 207 255 243 245 219 MCV 92.1 92.8 94.8* 93.7 93.9 Recent Labs 07/08/23 0552 07/07/23 0351 07/06/23 0354 07/05/23 1744 07/05/23 0505 07/04/23 0347 NA 139 135 135 134* 134* 139 CL 101 96* 98 98 97* 102 CO2 25 23 23 21* 25 21* K 3.2* 3.5 3.9 3.7 3.8 3.8 MAGNESIUM 0.89 0.87 0.97 -- 1.01 1.05 PHOS 4.3 4.0 4.5 -- 5.0* 4.9* CALCIUM 9.3 9.4 10.0 9.6 10.0 9.5 BUN 14 18 16 17 19* 16 CREATININE 1.30* 1.30* 1.25* 1.30* 1.51* 1.28* Coags No results for input(s): INR, PT, PTT, DDIMER in the last 168 hours. Cardiac Markers No results for input(s): CK, TROPONINTHS, PROBNP in the last 168 hours. Endocrine Recent Labs 06/15/23 0428 04/18/23 0210 04/17/23 0333 02/08/23 2208 09/27/22 0307 TSH 2.98 -- 5.93* 4.00 -- HA1C -- 5.6 -- -- 5.6 No results for input(s): CHLPL, TRIG, HDL, LDLCHOL, CHOLHDL in the last 168 hours. Recent Labs 07/08/23 0552 07/07/23 0351 07/06/23 0354 GLUCOSE 102 101 107 Telemetry: I have personally reviewed and interpreted the telemetry from the last 24 hours. Resultsshow SR, Heart Rate: [52-65] Assessment: Loida Roque is a 53 y.o. 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 Tovar, paroxysmal A-fib (diagnosed on 10/20/2022), HFpEF, pulmonary emboli on Eliquis, and restrictive lung disease secondary to obesity who presented to OSH with chest pain . Patient has recently undergone extensive workup for ACS that has been unrevealing. 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 The patient current presentation is different with positive cardiac markers. Patient transferred to [facility] for further work-up and evaluation. Presented with abdominal pain that is deemed to be due to SMA stenosis seen on abdominal imaging. Now s/p SMA stenting on 07/01 without apparent complication. The patient has been having ongoing abdominal pain and nausea and vomiting. Duplex studies showed patent stent. EGD and colonoscopy melanosis in the colon. Biopsies are pending. Plan: #NSTEMI, likely II in setting of fluid overload #C/f MINOCA # Elevated troponins most likely demand. Underwent extensive cardia work last visit -ASA discontinued given preference for antiplatelet monotherapy with plavix as below -continue Atorvastatin 40mg PO daily -Cardiology consulted, no further ischemic evaluation at this time -Imdur discontinued due to migraines - r/o arrhythmic contribution with zio on discharge -Toprol XL12.5 daily -ranolazine at 1000mg BD(Nomral Qtc ~450) #abdominal pain #SMA artery stenosis, s/p stenting - patient reporting longstanding intermittent LLQ pain. Sometimes located lower abd, sometimes epigastric. - simethicone PRN. Miralax daily and senakot BID ordered - CT A/P :Severe stenosis of the proximal SMA -duplex visceral arteries: Patent superior mesenteric artery with elevated velocities consistent with 50% or greater stenosis in the proximal segment. Patent proximal to mid celiac artery with no evidence of significant stenosis. - S/p SMA stenting with Vascular Surgery 07/01 with interval improvement in abdominal discomfort -Continue plavix 75mg daily, no indication for triple therapy with ASA per Vascular - GI and vascular on board. Appreciate recommendations. #Decompensated HFpEF, now euvolemic - Hold torsemide due to CATIE, likely due to over diuresis. - Goal weight < 223 (admission weight) - Patient auto diuresing.with negative balance. - evaluate and consider resuming diuretics tomorrow. #CATIE Likely secondary to over diuresis and poor po intake. - hold torsemide today. #Bibasilar atelectasis #restrictive lung disease secondary to obesity CT A/P -Bibasilar groundglass opacities, favored atelectasis given dependent predilection, however, a superimposed infectious/inflammatory process or alveolar edema is not excluded. Afebrile , No White count , ABX not indicated at this time Incentive spirometer #pulmonary emboli on Eliquis #supraventricular tachycardia (AVNRT since 06/2021) #paroxysmal A-fib (diagnosed on 10/20/2022), - on heparin gtt. #Migraines - Home nurtec supply has run out, pt unable to have refill brought to hospital - migraine cocktail prn. Diet: Daily Healthy Menu Choices/Cardiac diet ([facility]-Diet) DVT Prophylaxis: DOAC heparin gtt. Code status: Attempt Cardiopulmonary Resuscitation - Inpatient Disposition: Discharge Location: AM-P[facility] Basic Mobility Raw Score: 24 PT: OT: PCP JOCY Franco [phone] Terrence Keating MD 07/08/2023 * Porsha San MD - 07/08/2023 6:16 AM EDT GASTROENTEROLOGY & HEPATOLOGY CONSULTATION Consult Progress Note Requesting Provider: Terrence Keating MD REASON FOR CONSULTATION Abdominal pain HISTORY OF PRESENT ILLNESS Loida Roque is a 53 y.o. 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 Patient's abdominal pain continues despite SMA stenting, prompting GI consultation for further evaluation and management. INTERVAL: - S/p EGD (normal, biopsies obtained from stomach and duodenum) and colonoscopy which was largely unrevealing (biopsies also taken) - Afebrile, HDS - Hgb normal, 12.3 - Feels okay this AM, has pain about 1 hr after eating ROS: 10 systems reviewed and positive for those in HPI, otherwise negative PAST MEDICAL/SURGICAL HISTORY: Past Medical History: Diagnosis Date Asthma Bilateral carpal tunnel syndrome 03/18/2023 Bilateral renal artery stenosis 03/18/2023 Depression Endometriosis S/p hysterectomy GERD (gastroesophageal reflux disease) 03/18/2023 Hx of supraventricular tachycardia 03/18/2023 Infiltrate of lower lobe of left lung present on imaging study 03/18/2023 Insomnia Left facial numbness 03/18/2023 Left lateral epicondylitis 03/18/2023 Left wrist pain 03/18/2023 Migraine Obesity (BMI 30-39.9) MARYLOU on CPAP Seasonal allergies MEDICATIONS lidocaine 1 patch Transdermal Q24H clopidogreL 75 mg Oral Daily ranolazine ER 1,000 mg Oral BID rimegepant 75 mg Oral Q48H metoprolol succinate XL 12.5 mg Oral Daily senna-docusate 2 tablet Oral BID polyethylene glycoL (MIRALAX) oral powder 17 g Oral Daily amLODIPine 2.5 mg Oral Daily atorvastatin 40 mg Oral QPM DULoxetine DR 60 mg Oral Daily rOPINIRole 2 mg Oral BID gabapentin 600 mg Oral Nightly melatonin 6 mg Oral Nightly topiramate 100 mg Oral Nightly spironolactone 25 mg Oral Daily pantoprazole EC 40 mg Oral Daily sodium chloride 0.9 % (flush) 5 mL Intravenous BID heparin (porcine) infusion Stopped (07/07/23 1300) oxyCODONE-acetaminophen, acetaminophen, albuteroL, ondansetron, heparin (porcine) infusion AND heparin (porcine), nitroGLYcerin, simethicone, loratadine, sodium chloride 0.9 % (flush), lidocaine ALLERGIES Allergies Allergen Reactions Codeine Other (See Comments) Per pt it causes severe jittery and uncomfortable feeling Acetaminophen Other (See Comments) Makes her jittery, feel weird and cause swelling in upper/lower extremities Clobetasol Rash Other reaction(s): Skin Rash SOCIAL HISTORY Social History Socioeconomic History Marital status: Spouse name: Not on file Number of children: Not on file Years of education: Not on file Highest education level: Not on file Occupational History Not on file Tobacco Use Smoking status: Never Smokeless tobacco: Never Vaping Use Vaping Use: Never used Substance and Sexual Activity Alcohol use: Never Drug use: Never Sexual activity: Yes Other Topics Concern Not on file 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 , 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 Lives in [facility] Social Determinants of Health Financial Resource [...] file Intimate Partner Violence: Not At Risk (06/14/2023) IPV Inpatient Questions Prevent Contact with Others: no Feels Threatened by Someone: no Feels Unsafe at Home: no Physical Signs of Abuse Present: no Housing Stability: High Risk (06/15/2023) Housing Stability Vital Sign Unable to Pay for Housing in the Last Year: Yes Number of Places Lived in the Last Year: 1 Unstable Housing in the Last Year: No FAMILY HISTORY Family History Problem Relation Age of Onset Hypertension Mother Arrhythmia Father Heart Surgery Father Myocardial Infarction Father Coronary Artery Disease Father Vitals: 07/07/23 1550 07/07/23 1551 07/07/23 1600 07/07/23 1615 BP: 115/63 115/63 110/56 104/58 BP Location (NBP): Right arm Patient Position: Pulse: 58 55 59 Resp: 18 Temp: 36.7 ??C (98.1 ??F) TempSrc: Axillary SpO2: 100% Weight: Height: PHYSICAL EXAM GENERAL: No acute distress, alert and oriented HEENT: AT/NC, sclerae anicteric, moist mucous membranes CHEST: CTA CARDIAC: RRR, normal S1/S2, no appreciable murmurs ABDOMEN: Soft, normoactive bowel sounds, non-tender, non-distended EXT: Warm, no edema NEURO: Grossly intact, moves all extremities, no asterixis SKIN: No jaundice LABS: Lab Results Component Value Date Sodium 135 07/07/2023 Potassium 3.5 07/07/2023 Chloride 96 (L) 07/07/2023 CO2 23 07/07/2023 BUN 18 07/07/2023 Creatinine 1.30 (H) 07/07/2023 Glucose Lvl 101 07/07/2023 CBC Lab Results Component Value Date WBC 7.9 07/07/2023 Hemoglobin 13.8 07/07/2023 Hematocrit 41.0 07/07/2023 Platelets 255 07/07/2023 LFT's Lab Results Component Value Date Alk Phos 54 07/07/2023 AST 15 07/07/2023 Albumin 4.4 07/07/2023 Bili, Direct 0.1 07/07/2023 Total Bilirubin 0.4 07/07/2023 ALT 20 07/07/2023 Total Protein 7.5 07/07/2023 IMAGING: Reviewed in [facility] ENDOSCOPY: Reviewed in [facility] IMPRESSION: Loida Roque is a 53 y.o. 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 Patient's abdominal pain continues despite SMA stenting, prompting GI consultation for further evaluation and management. Etiology of patient's abdominal pain has not been clear -was originally thought to be due to SMA stenosis, however, her pain has not improved with SMA stenting. Pancreatitis unlikely given normal lipase, and LFTs also unremarkable (as was RUQUS from 06/27). EGD colonoscopy largely unrevealing, though biopsies obtained from stomach, duodenum and colon. Recommend ongoing supportive care and will f/u path. Recommend trying scheduled anti emetics. prior to meals to help with sx. Should be referred to GI clinic RECOMMENDATIONS: - Supportive care - Scheduled anti emetics prior to meals - F/u path - Referral to GI clinic Patient seen with Dr. Allen San MD PGY5 Gastroenterology Associated attestation - Lashonda Villa MD - 07/08/2023 6:07 PM EDT Attending Addendum: I interviewed and examined the patient with Dr. San on rounds. I confirm the history and chavis physical findings outlined in this note. The assessment and plan were formulated in discussion with meat the time of this encounter, and I agree with them as documented. Lashonda Villa MD Gastroenterology and hepatology Pager: [phone] * Patricia Rosas RCP - 07/08/2023 4:10 AM EDT Respiratory Therapy NIV Note NIV Settings: NIV Mode: CPAP PEEP/CPAP (cm H2O): 12 cm H20 FiO2 (%): 21 % O2 Bleed In (LPM): 0 L/min NIV Measurements: Resp: 17 Mve: 14.5 Leak (L/min): 0 L/min Vte: 849 SpO2: 100 % Current Medications: Albuterol Q4 PRN Skin Assessment: NIV Skin Assessment WDL: WDL Mepilex Applied: No Nares Assessment WDL: WDL Breath Sounds: clear Assessment: Pt placed on CPAP for the night around 2145. Pt compliant with CPAP overnight, and cameoff around 0400. Plan: Continue nocturnal cpap Patricia Rosas RCP * Terrence Keating MD - 07/07/2023 9:00 AM EDT CV HOSPITALIST 2 - [facility] DAILY PROGRESS NOTE Page [phone] to reach a provider 28/09 Admit Date: 06/14/2023 Encounter Date July 07, 2023 Anticipated Discharge Date: 07/10/2023 Hospital Day: 23 Active Hospital Problems Diagnosis NSTEMI (non-ST elevated myocardial infarction) Resolved Hospital Problems No resolved problems to display. 24 Hour Events/Subjective: NAEON - still reports abdominal pain today - Weight 222 lb net negative positive. -Cr slightly uptrended Medications: Scheduled Meds: lidocaine 1 patch Transdermal Q24H clopidogreL 75 mg Oral Daily ranolazine ER 1,000 mg Oral BID rimegepant 75 mg Oral Q48H metoprolol succinate XL 12.5 mg Oral Daily senna-docusate 2 tablet Oral BID polyethylene glycoL (MIRALAX) oral powder 17 g Oral Daily amLODIPine 2.5 mg Oral Daily atorvastatin 40 mg Oral QPM DULoxetine DR 60 mg Oral Daily rOPINIRole 2 mg Oral BID gabapentin 600 mg Oral Nightly melatonin 6 mg Oral Nightly topiramate 100 mg Oral Nightly spironolactone 25 mg Oral Daily pantoprazole EC 40 mg Oral Daily sodium chloride 0.9 % (flush) 5 mL Intravenous BID Continuous Infusions: heparin (porcine) infusion 850 Units/hr (07/07/23 0127) PRN Meds:.oxyCODONE-acetaminophen, acetaminophen, albuteroL, ondansetron, heparin (porcine) infusion AND heparin (porcine), nitroGLYcerin, simethicone, loratadine, sodium chloride 0.9 % (flush), lidocaine Objective: Last value Range last 24 hrs Temp: 36.7 ??C (98 ??F) Temp: [36.4 ??C (97.6 ??F)-36.9 ??C (98.4 ??F)] Heart Rate: 58 Heart Rate from SpO2: (!) 48 bpm Heart Rate: [46-58] BP: 113/66 BP: (113-119)/(59-70) Resp: 18 Resp: [16-20] SpO2: 99 % SpO2: [96 %-100 %] Height: 162.6 cm (5' 4) Weight: 100.8 kg (222 lb 4.8 oz) BMI (Calculated): 38.14 BMI Classification: Obese Admit weight: 100.79 kg Patient Vitals for the past 168 hrs: Weight 07/07/23 0602 100.8 kg (222 lb 4.8 oz) 07/06/23 0539 100.2 kg (220 lb 12.8 oz) 07/05/23 0405 100.7 kg (222 lb) 07/04/23 0334 102 kg (224 lb 12.8 oz) 07/03/23 0552 103.9 kg (229 lb) 07/02/23 0500 103.9 kg (229 lb 1.6 oz) 07/01/23 0300 103.8 kg (228 lb 12.8 oz) Intake/Output Summary (Last 24 hours) at 07/07/2023 1306 Last data filed at 07/07/2023 1200 Gross per 24 hour Intake 2400 ml Output 600 ml Net 1800 ml Physical Exam: Physical Exam Constitutional: In no apparent distress. Cardiovascular: Rate and Rhythm: Normal rate and regular rhythm. Pulmonary: Effort: Pulmonary effort is normal. Breath sounds: Normal breath sounds. Abdominal: General: There is no distension. Palpations: Abdomen is soft. Tenderness: There is abdominal tenderness. There is no guarding or rebound. Musculoskeletal: Cervical back: Neck supple. No rigidity. Right lower leg: No edema. Left lower leg: No edema. Skin: General: Skin is warm and dry. Neurological: General: No focal deficit present. Mental Status: She is alert. Labs: Recent Labs 07/07/23 0351 07/06/23 0354 07/05/23 0505 07/04/23 0347 07/03/23 0307 WBC 7.9 7.7 8.9 8.2 8.2 HGB 13.8 14.7 13.7 13.5 12.5 HCT 41.0 43.8 41.4 40.0 38.5 PLATELET 255 243 245 219 203 MCV 92.8 94.8* 93.7 93.9 97.0* Recent Labs 07/07/23 0351 07/06/23 0354 07/05/23 1744 07/05/23 0505 07/04/23 0347 07/03/23 1800 07/03/23 0307 NA 135 135 134* 134* 139 137 138 CL 96* 98 98 97* 102 102 107 CO2 23 23 21* 25 21* 21* 20* K 3.5 3.9 3.7 3.8 3.8 4.1 4.2 MAGNESIUM 0.87 0.97 -- 1.01 1.05 0.89 0.93 PHOS 4.0 4.5 -- 5.0* 4.9* -- 3.6 CALCIUM 9.4 10.0 9.6 10.0 9.5 9.5 8.8 BUN 18 16 17 19* 16 16 16 CREATININE 1.30* 1.25* 1.30* 1.51* 1.28* 1.37* 1.20 Coags No results for input(s): INR, PT, PTT, DDIMER in the last 168 hours. Cardiac Markers No results for input(s): CK, TROPONINTHS, PROBNP in the last 168 hours. Endocrine Recent Labs 06/15/23 0428 04/18/23 0210 04/17/23 0333 02/08/23 2208 09/27/22 0307 TSH 2.98 -- 5.93* 4.00 -- HA1C -- 5.6 -- -- 5.6 No results for input(s): CHLPL, TRIG, HDL, LDLCHOL, CHOLHDL in the last 168 hours. Recent Labs 07/07/23 0351 07/06/23 0354 07/05/23 1744 GLUCOSE 101 107 130 Telemetry: I have personally reviewed and interpreted the telemetry from the last 24 hours. Resultsshow SR, Heart Rate: [46-58] Assessment: Loida Roque is a 53 y.o. 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 Tovar, paroxysmal A-fib (diagnosed on 10/20/2022), HFpEF, pulmonary emboli on Eliquis, and restrictive lung disease secondary to obesity who presented to OSH with chest pain . Patient has recently undergone extensive workup for ACS that has been unrevealing. 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 The patient current presentation is different with positive cardiac markers. Patient transferred to [facility] for further work-up and evaluation. Presented with abdominal pain that is deemed to be due to SMA stenosis seen on abdominal imaging. Now s/p SMA stenting on 07/01 without apparent complication. Today, patient complaining of abdominal pain, similar to prior to SMA stenting. Duplex studies showed patent stent. GI to evaluate for possible GI cause of abdominal pain. Plan: #NSTEMI, likely II in setting of fluid overload #C/f MINOCA # Elevated troponins most likely demand. Underwent extensive cardia work last visit -ASA discontinued given preference for antiplatelet monotherapy with plavix as below -continue Atorvastatin 40mg PO daily -Cardiology consulted, no further ischemic evaluation at this time -Imdur discontinued due to migraines - r/o arrhythmic contribution with zio on discharge -Toprol XL12.5 daily -ranolazine at 1000mg BD(Nomral Qtc ~450) #abdominal pain #SMA artery stenosis, s/p stenting - patient reporting longstanding intermittent LLQ pain. Sometimes located lower abd, sometimes epigastric. - simethicone PRN. Miralax daily and senakot BID ordered - CT A/P :Severe stenosis of the proximal SMA -duplex visceral arteries: Patent superior mesenteric artery with elevated velocities consistent with 50% or greater stenosis in the proximal segment. Patent proximal to mid celiac artery with no evidence of significant stenosis. - S/p SMA stenting with Vascular Surgery 07/01 with interval improvement in abdominal discomfort -Continue plavix 75mg daily, no indication for triple therapy with ASA per Vascular - NPO for EGD and colonoscopy today. - GI and vascular on board. Appreciate recommendations. #Decompensated HFpEF, now euvolemic - Hold torsemide due to CATIE, likely due to over diuresis. - Goal weight < 223 (admission weight) - consider resuming diuretics tomorrow. #CATIE Likely secondary to over diuresis and poor po intake. - hold torsemide today. #Bibasilar atelectasis #restrictive lung disease secondary to obesity CT A/P -Bibasilar groundglass opacities, favored atelectasis given dependent predilection, however, a superimposed infectious/inflammatory process or alveolar edema is not excluded. Afebrile , No White count , ABX not indicated at this time Incentive spirometer #pulmonary emboli on Eliquis #supraventricular tachycardia (AVNRT since 06/2021) #paroxysmal A-fib (diagnosed on 10/20/2022), - on heparin gtt. #Migraines - Home nurtec supply has run out, pt unable to have refill brought to hospital Diet: NPO diet (Give Meds) DVT Prophylaxis: DOAC heparin gtt. Code status: Attempt Cardiopulmonary Resuscitation - Inpatient Disposition: Discharge Location: AM-PAC Basic Mobility Raw Score: 24 PT: OT: PCP JOCY Franco [phone] Terrence Keating MD 07/07/2023 * Terrence Keating MD - 07/06/2023 11:00 AM EDT [facility]PITALIST 2 - [facility] DAILY PROGRESS NOTE Page [phone] to reach a provider 28/09 Admit Date: 06/14/2023 Encounter Date July 06, 2023 Anticipated Discharge Date: 07/07/2023 Hospital Day: Active Hospital Problems Diagnosis NSTEMI (non-ST elevated myocardial infarction) Resolved Hospital Problems No resolved problems to display. 24 Hour Events/Subjective: NAEON - reports 10 abdominal pain today - Weight 220lb downtrending, net negative 2.5L yesterday -Cr improving with holding diuretics Medications: Scheduled Meds: lidocaine 1 patch Transdermal Q24H clopidogreL 75 mg Oral Daily ranolazine ER 1,000 mg Oral BID rimegepant 75 mg Oral Q48H metoprolol succinate XL 12.5 mg Oral Daily senna-docusate 2 tablet Oral BID polyethylene glycoL (MIRALAX) oral powder 17 g Oral Daily amLODIPine 2.5 mg Oral Daily atorvastatin 40 mg Oral QPM DULoxetine DR 60 mg Oral Daily rOPINIRole 2 mg Oral BID gabapentin 600 mg Oral Nightly melatonin 6 mg Oral Nightly topiramate 100 mg Oral Nightly spironolactone 25 mg Oral Daily pantoprazole EC 40 mg Oral Daily sodium chloride 0.9 % (flush) 5 mL Intravenous BID Continuous Infusions: heparin (porcine) infusion 850 Units/hr (07/05/232025) PRN Meds:.oxyCODONE-acetaminophen, acetaminophen, albuteroL, ondansetron, heparin (porcine) infusion AND heparin (porcine), nitroGLYcerin, simethicone, loratadine, sodium chloride 0.9 % (flush), lidocaine Objective: Last value Range last 24 hrs Temp: 36.9 ??C (98.4 ??F) Temp: [36.4 ??C (97.5 ??F)-36.9 ??C (98.4 ??F)] Heart Rate: (!) 48 Heart Rate from SpO2: (!) 48 bpm Heart Rate: [46-57] BP: 114/67 BP: (101-115)/(58-68) Resp: 16 Resp: [16-18] SpO2: 98 % SpO2: [96 %-98 %] Height: 162.6 cm (5' 4) Weight: 100.2 kg (220 lb 12.8 oz) BMI (Calculated): 38.14 BMI Classification: Obese Admit weight: 100.79 kg Patient Vitals for the past 168 hrs: Weight 07/06/23 0539 100.2 kg (220 lb 12.8 oz) 07/05/23 0405 100.7 kg (222 lb) 07/04/23 0334 102 kg (224 lb 12.8 oz) 07/03/23 0552 103.9 kg (229 lb) 07/02/23 0500 103.9 kg (229 lb 1.6 oz) 07/01/23 0300 103.8 kg (228 lb 12.8 oz) 06/30/23 0325 103 kg (227 lb 1.6 oz) Intake/Output Summary (Last 24 hours) at 07/06/20232054 Last data filed at 07/06/2023 1600 Gross per 24 hour Intake 565 ml Output 1250 ml Net -685 ml Physical Exam: Physical Exam Constitutional: In no apparent distress. Cardiovascular: Rate and Rhythm: Normal rate and regular rhythm. Pulmonary: Effort: Pulmonary effort is normal. Breath sounds: Normal breath sounds. Abdominal: General: There is no distension. Palpations: Abdomen is soft. Tenderness: There is abdominal tenderness. There is no guarding or rebound. Musculoskeletal: Cervical back: Neck supple. No rigidity. Right lower leg: No edema. Left lower leg: No edema. Skin: General: Skin is warm and dry. Neurological: General: No focal deficit present. Mental Status: She is alert. Labs: Recent Labs 07/06/23 0354 07/05/23 0505 07/04/23 0347 07/03/23 0307 07/02/23 0358 WBC 7.7 8.9 8.2 8.2 7.6 HGB 14.7 13.7 13.5 12.5 12.9 HCT 43.8 41.4 40.0 38.5 39.5 PLATELET 243 245 219 203 200 MCV 94.8* 93.7 93.9 97.0* 95.9* Recent Labs 07/06/23 0354 07/05/23 1744 07/05/23 0505 07/04/23 0347 07/03/23 1800 07/03/23 0307 07/02/23 0358 NA 135 134* 134* 139 137 138 133* CL 98 98 97* 102 102 107 104 CO2 23 21* 25 21* 21* 20* 21* K 3.9 3.7 3.8 3.8 4.1 4.2 4.1 MAGNESIUM 0.97 -- 1.01 1.05 0.89 0.93 0.95 PHOS 4.5 -- 5.0* 4.9* -- 3.6 3.8 CALCIUM 10.0 9.6 10.0 9.5 9.5 8.8 8.8 BUN 16 17 19* 16 16 16 15 CREATININE 1.25* 1.30* 1.51* 1.28* 1.37* 1.20 1.21* Coags No results for input(s): INR, PT, PTT, DDIMER in the last 168 hours. Cardiac Markers No results for input(s): CK, TROPONINTHS, PROBNP in the last 168 hours. Endocrine Recent Labs 06/15/23 0428 04/18/23 0210 04/17/23 0333 02/08/23 2208 09/27/22 0307 TSH 2.98 -- 5.93* 4.00 -- HA1C -- 5.6 -- -- 5.6 No results for input(s): CHLPL, TRIG, HDL, LDLCHOL, CHOLHDL in the last 168 hours. Recent Labs 07/06/23 0354 07/05/23 1744 07/05/23 0505 GLUCOSE 107 130 114 Telemetry: I have personally reviewed and interpreted the telemetry from the last 24 hours. Resultsshow episodes of sinus morgan, Heart Rate: [48-51] Assessment: Loida Roque is a 53 y.o. 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 Tovar, paroxysmal A-fib (diagnosed on 10/20/2022), HFpEF, pulmonary emboli on Eliquis, and restrictive lung disease secondary to obesity who presented to OSH with chest pain . Patient has recently undergone extensive workup for ACS that has been unrevealing. 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 The patient current presentation is different with positive cardiac markers. Patient transferred to [facility] for further work-up and evaluation. Presented with abdominal pain that is deemed to be due to SMA stenosis seen on abdominal imaging. Now s/p SMA stenting on 07/01 without apparent complication. Today, patient complaining of 10/10 abdominal pain, similar to prior to SMA stenting. Duplex studies showed patent stent. Involve GI to evaluate for possible GI cause of abdominal pain. Plan: #NSTEMI, likely II in setting of fluid overload #C/f MINOCA # Elevated troponins most likely demand. Underwent extensive cardia work last visit -ASA discontinued given preference for antiplatelet monotherapy with plavix as below -continue Atorvastatin 40mg PO daily -Cardiology consulted, no further ischemic evaluation at this time -Imdur discontinued due to migraines - r/o arrhythmic contribution with zio on discharge -Toprol XL12.5 daily -ranolazine at 1000mg BD(Nomral Qtc ~450) #abdominal pain #SMA artery stenosis, s/p stenting - patient reporting longstanding intermittent LLQ pain. Sometimes located lower abd, sometimes epigastric. - simethicone PRN. Miralax daily and senakot BID ordered - CT A/P :Severe stenosis of the proximal SMA -duplex visceral arteries: Patent superior mesenteric artery with elevated velocities consistent with 50% or greater stenosis in the proximal segment. Patent proximal to mid celiac artery with no evidence of significant stenosis. - S/p SMA stenting with Vascular Surgery 07/01 with interval improvement in abdominal discomfort -Continue plavix 75mg daily, no indication for triple therapy with ASA per Vascular - consult Vascular surgery for re-evaluation. - Consider evaluation for non-vascular cause of abdominal pain as well. - GI consult today. Appreciate recommendations. #Decompensated HFpEF -Weight 229 lb today, up from 223 lb since admission - Hold torsemide due to CATIE, likely due to over diuresis. -Goal weight < 223 (admission weight) #CATIE Likely secondary to over diuresis and poor po intake. - hold torsemide today. #Bibasilar atelectasis #restrictive lung disease secondary to obesity CT A/P -Bibasilar groundglass opacities, favored atelectasis given dependent predilection, however, a superimposed infectious/inflammatory process or alveolar edema is not excluded. Afebrile , No White count , ABX not indicated at this time Incentive spirometer #pulmonary emboli on Eliquis #supraventricular tachycardia (AVNRT since 06/2021) #paroxysmal A-fib (diagnosed on 10/20/2022), - Continue with Eliquis. #Migraines - Home nurtec supply has run out, pt unable to have refill brought to hospital Diet: Daily Healthy Menu Choices/Cardiac diet ([facility]-Diet) NPO diet (Give Meds) DVT Prophylaxis: DOAC Code status: Attempt Cardiopulmonary Resuscitation - Inpatient Disposition: Discharge Location: AM-PAC Basic Mobility Raw Score: 24 PT: OT: PCP JOCY Franco [phone] Terrence Keating MD 07/06/2023 * Ana Paula Borja RN - 07/05/2023 1:16 PM EDT Assumed care of pt at 0700 from [facility]. Pt A&Ox4, no respiratory distress, skin normal temperature, color and condition. Pt c/o pain in abdomen like the pain that brought her in. No pain onpalpation. Notified , Duplex of visceral arteries ordered. Call lombardo within reach. Safety maintained. * Terrence Keating MD - 07/05/2023 11:00 AM EDT CV HOSPITALIST 2 - [facility] DAILY PROGRESS NOTE Page [phone] to reach a provider 28/09 Admit Date: 06/14/2023 Encounter Date July 05, 2023 Anticipated Discharge Date: 07/06/2023 Hospital Day: 21 Active Hospital Problems Diagnosis NSTEMI (non-ST elevated myocardial infarction) Resolved Hospital Problems No resolved problems to display. 24 Hour Events/Subjective: NAEON - reports 10/10 abdominal pain today - Weight 222lb downtrending, net negative 2.5L yesterday -has CATIE. Got torsemide yesterday. Medications: Scheduled Meds: lidocaine 1 patch Transdermal Q24H clopidogreL 75 mg Oral Daily ranolazine ER 1,000 mg Oral BID rimegepant 75 mg Oral Q48H metoprolol succinate XL 12.5 mg Oral Daily senna-docusate 2 tablet Oral BID polyethylene glycoL (MIRALAX) oral powder 17 g Oral Daily amLODIPine 2.5 mg Oral Daily atorvastatin 40 mg Oral QPM DULoxetine DR 60 mg Oral Daily rOPINIRole 2 mg Oral BID gabapentin 600 mg Oral Nightly melatonin 6 mg Oral Nightly topiramate 100 mg Oral Nightly spironolactone 25 mg Oral Daily pantoprazole EC 40 mg Oral Daily sodium chloride 0.9 % (flush) 5 mL Intravenous BID Continuous Infusions: heparin (porcine) infusion 850 Units/hr (07/04/23 1930) PRN Meds:.acetaminophen, albuteroL, ondansetron, heparin (porcine) infusion AND heparin (porcine), nitroGLYcerin, simethicone, loratadine, sodium chloride 0.9 % (flush), lidocaine Objective: Last value Range last 24 hrs Temp: 36.6 ??C (97.8 ??F) Temp: [36.3 ??C (97.4 ??F)-37.2 ??C (99 ??F)] Heart Rate: 50 Heart Rate from SpO2: (!) 48 bpm Heart Rate: [50-65] BP: 107/56 BP: (97-110)/(46-62) Resp: 20 Resp: [16-21] SpO2: 96 % SpO2: [95 %-98 %] Height: 162.6 cm (5' 4) Weight: 100.7 kg (222 lb) BMI (Calculated): 38.14 BMI Classification: Obese Admit weight: 100.79 kg Patient Vitals for the past 168 hrs: Weight 04/29/24 0405 100.7 kg (222 lb) 07/04/23 0334 102 kg (224 lb 12.8 oz) 07/03/23 0552 103.9 kg (229 lb) 07/02/23 0500 103.9 kg (229 lb 1.6 oz) 07/01/23 0300 103.8 kg (228 lb 12.8 oz) 06/30/23 0325 103 kg (227 lb 1.6 oz) 06/29/23 0333 102.5 kg (226 lb) Intake/Output Summary (Last 24 hours) at 07/05/2023 1702 Last data filed at 07/05/2023 1558 Gross per 24 hour Intake 954.5 ml Output 1250 ml Net -295.5 ml Physical Exam: Physical Exam Constitutional: In no apparent distress. Cardiovascular: Rate and Rhythm: Normal rate and regular rhythm. Pulmonary: Effort: Pulmonary effort is normal. Breath sounds: Normal breath sounds. Abdominal: General: There is no distension. Palpations: Abdomen is soft. Tenderness: There is abdominal tenderness. There is no guarding or rebound. Musculoskeletal: Cervical back: Neck supple. No rigidity. Right lower leg: No edema. Left lower leg: No edema. Skin: General: Skin is warm and dry. Neurological: General: No focal deficit present. Mental Status: She is alert. Labs: Recent Labs 07/05/23 0505 07/04/23 0347 07/03/23 0307 07/02/23 0358 07/01/23 0256 WBC 8.9 8.2 8.2 7.6 6.9 HGB 13.7 13.5 12.5 12.9 12.8 HCT 41.4 40.0 38.5 39.5 39.0 PLATELET 245 219 203 200 224 MCV 93.7 93.9 97.0* 95.9* 96.5* Recent Labs 07/05/23 0505 07/04/23 0347 07/03/23 1800 07/03/23 0307 07/02/23 0358 07/01/23 0256 NA 134* 139 137 138 133* 137 CL 97* 102 102 107 104 105 CO2 25 21* 21* 20* 21* 22 K 3.8 3.8 4.1 4.2 4.1 4.1 MAGNESIUM 1.01 1.05 0.89 0.93 0.95 0.95 PHOS 5.0* 4.9* -- 3.6 3.8 4.1 CALCIUM 10.0 9.5 9.5 8.8 8.8 9.0 BUN 19* 16 16 16 15 16 CREATININE 1.51* 1.28* 1.37* 1.20 1.21* 1.21* Coags No results for input(s): INR, PT, PTT, DDIMER in the last 168 hours. Cardiac Markers No results for input(s): CK, TROPONINTHS, PROBNP in the last 168 hours. Endocrine Recent Labs 06/15/23 0428 04/18/23 0210 04/17/23 0333 02/08/23 2208 09/27/22 0307 TSH 2.98 -- 5.93* 4.00 -- HA1C -- 5.6 -- -- 5.6 No results for input(s): CHLPL, TRIG, HDL, LDLCHOL, CHOLHDL in the last 168 hours. Recent Labs 07/05/23 0505 07/04/23 0347 07/03/23 1800 GLUCOSE 114 104 116 Telemetry: I have personally reviewed and interpreted the telemetry from the last 24 hours. Resultsshow episodes of sinus morgan, Heart Rate: [50-57] Assessment: Loida Roque is a 53 y.o. 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 Tovar, paroxysmal A-fib (diagnosed on 10/20/2022), HFpEF, pulmonary emboli on Eliquis, and restrictive lung disease secondary to obesity who presented to OSH with chest pain . Patient has recently undergone extensive workup for ACS that has been unrevealing. 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 The patient current presentation is different with positive cardiac markers. Patient transferred to [facility] for further work-up and evaluation. Presented with abdominal pain that is deemed to be due to SMA stenosis seen on abdominal imaging. Now s/p SMA stenting on 07/01 without apparent complication. Today, 07/04, patient complaining of 10/10 abdominal pain, similar to prior to SMA stenting. Plan: #NSTEMI, likely II in setting of fluid overload #C/f MINOCA # Elevated troponins most likely demand. Underwent extensive cardia work last visit -ASA discontinued given preference for antiplatelet monotherapy with plavix as below -continue Atorvastatin 40mg PO daily -Cardiology consulted, no further ischemic evaluation at this time -Imdur discontinued due to migraines - r/o arrhythmic contribution with zio on discharge -Toprol XL12.5 daily -ranolazine at 1000mg BD(Nomral Qtc ~450) #SMA artery stenosis, s/p stenting - patient reporting longstanding intermittent LLQ pain. Sometimes located lower abd, sometimes epigastric. - simethicone PRN. Miralax daily and senakot BID ordered - CT A/P :Severe stenosis of the proximal SMA -duplex visceral arteries: Patent superior mesenteric artery with elevated velocities consistent with 50% or greater stenosis in the proximal segment. Patent proximal to mid celiac artery with no evidence of significant stenosis. - S/p SMA stenting with Vascular Surgery 07/01 with interval improvement in abdominal discomfort -Continue plavix 75mg daily, no indication for triple therapy with ASA per Vascular - consult Vascular surgery for re-evaluation. - Consider evaluation for non-vascular cause of abdominal pain as well. #Decompensated HFpEF -Weight 229 lb today, up from 223 lb since admission - Hold torsemide due to CATIE, likely due to over diuresis. -Goal weight < 223 (admission weight) #CATIE Likely secondary to over diuresis and poor po intake. - hold torsemide today. #Bibasilar atelectasis #restrictive lung disease secondary to obesity CT A/P -Bibasilar groundglass opacities, favored atelectasis given dependent predilection, however, a superimposed infectious/inflammatory process or alveolar edema is not excluded. Afebrile , No White count , ABX not indicated at this time Incentive spirometer #pulmonary emboli on Eliquis #supraventricular tachycardia (AVNRT since 06/2021) #paroxysmal A-fib (diagnosed on 10/20/2022), - Continue with Eliquis. #Migraines - Home nurtec supply has run out, pt unable to have refill brought to hospital Diet: Daily Healthy Menu Choices/Cardiac diet ([facility]-Diet) DVT Prophylaxis: DOAC Code status: Attempt Cardiopulmonary Resuscitation - Inpatient Disposition: Discharge Location: AM-PAC Basic Mobility Raw Score: 24 PT: OT: PCP JOCY Franco [phone] Terrence Keating MD 07/05/2023 * Lino Calles MD - 07/04/2023 9:09 AM EDT CV HOSPITALIST 2 - [facility] DAILY PROGRESS NOTE Page [phone] to reach a provider 28/09 Admit Date: 06/14/2023 Encounter Date July 04, 2023 Anticipated Discharge Date: 07/05/2023 Hospital Day: 20 Active Hospital Problems Diagnosis NSTEMI (non-ST elevated myocardial infarction) Resolved Hospital Problems No resolved problems to display. 24 Hour Events/Subjective: NAEON - Weight 224 downtrending, net negative 2.5L yesterday -Episode of chest pain today, EKG stable. Received SLN x3 without resolution, spontaneously resolved. -Continued diuresis with 40mg torsemide this morning Medications: Scheduled Meds: diclofenac Topical (Top) 4 Times Daily lidocaine 1 patch Transdermal Q24H clopidogreL 75 mg Oral Daily ranolazine ER 1,000 mg Oral BID rimegepant 75 mg Oral Q48H metoprolol succinate XL 12.5 mg Oral Daily senna-docusate 2 tablet Oral BID polyethylene glycoL (MIRALAX) oral powder 17 g Oral Daily amLODIPine 2.5 mg Oral Daily atorvastatin 40 mg Oral QPM DULoxetine DR 60 mg Oral Daily rOPINIRole 2 mg Oral BID gabapentin 600 mg Oral Nightly melatonin 6 mg Oral Nightly topiramate 100 mg Oral Nightly spironolactone 25 mg Oral Daily pantoprazole EC 40 mg Oral Daily sodium chloride 0.9 % (flush) 5 mL Intravenous BID Continuous Infusions: heparin (porcine) infusion 850 Units/hr (07/03/23 1230) PRN Meds:.albuteroL, ondansetron, heparin (porcine) infusion AND heparin (porcine), nitroGLYcerin, simethicone, loratadine, sodium chloride 0.9 % (flush), lidocaine Objective: Last value Range last 24 hrs Temp: 37.1 ??C (98.7 ??F) Temp: [36.4 ??C (97.5 ??F)-37.3 ??C (99.2 ??F)] Heart Rate: 56 Heart Rate from SpO2: 56 bpm Heart Rate: [53-66] BP: 103/63 BP: (100-118)/(54-69) Resp: 17 Resp: [17-20] SpO2: 96 % SpO2: [84 %-98 %] Height: 162.6 cm (5' 4) Weight: 102 kg (224 lb 12.8 oz) BMI (Calculated): 38.14 BMI Classification: Obese Admit weight: 100.79 kg Patient Vitals for the past 168 hrs: Weight 07/04/23 0334 102 kg (224 lb 12.8 oz) 07/03/23 0552 103.9 kg (229 lb) 07/02/23 0500 103.9 kg (229 lb 1.6 oz) 07/01/23 0300 103.8 kg (228 lb 12.8 oz) 06/30/23 0325 103 kg (227 lb 1.6 oz) 06/29/23 0333 102.5 kg (226 lb) 06/28/23 0307 102.1 kg (225 lb) Intake/Output Summary (Last 24 hours) at 07/04/2023 1709 Last data filed at 07/04/2023 1600 Gross per 24 hour Intake 1693 ml Output 3150 ml Net -1457 ml Physical Exam: Physical Exam Constitutional: In no apparent distress. Cardiovascular: Rate and Rhythm: Normal rate and regular rhythm. Pulmonary: Effort: Pulmonary effort is normal. Breath sounds: Normal breath sounds. Abdominal: General: There is no distension. Palpations: Abdomen is soft. Tenderness: There is abdominal tenderness. There is no guarding or rebound. Musculoskeletal: Cervical back: Neck supple. No rigidity. Right lower leg: No edema. Left lower leg: No edema. Skin: General: Skin is warm and dry. Neurological: General: No focal deficit present. Mental Status: She is alert. Labs: Recent Labs 07/04/23 0347 07/03/23 0307 07/02/23 0358 07/01/23 0256 06/30/23 0314 WBC 8.2 8.2 7.6 6.9 8.0 HGB 13.5 12.5 12.9 12.8 13.1 HCT 40.0 38.5 39.5 39.0 39.5 PLATELET 219 203 200 224 235 MCV 93.9 97.0* 95.9* 96.5* 93.6 Recent Labs 07/04/23 0347 07/03/23 1800 07/03/23 0307 07/02/23 0358 07/01/23 0256 06/30/23 0314 NA 139 137 138 133* 137 137 CL 102 102 107 104 105 104 CO2 21* 21* 20* 21* 22 23 K 3.8 4.1 4.2 4.1 4.1 3.8 MAGNESIUM 1.05 0.89 0.93 0.95 0.95 0.94 PHOS 4.9* -- 3.6 3.8 4.1 4.4 CALCIUM 9.5 9.5 8.8 8.8 9.0 9.1 BUN 16 16 16 15 16 18 CREATININE 1.28* 1.37* 1.20 1.21* 1.21* 1.22* Coags No results for input(s): INR, PT, PTT, DDIMER in the last 168 hours. Cardiac Markers No results for input(s): CK, TROPONINTHS, PROBNP in the last 168 hours. Endocrine Recent Labs 06/15/23 0428 04/18/23 0210 04/17/23 0333 02/08/23 2208 09/27/22 0307 TSH 2.98 -- 5.93* 4.00 -- HA1C -- 5.6 -- -- 5.6 No results for input(s): CHLPL, TRIG, HDL, LDLCHOL, CHOLHDL in the last 168 hours. Recent Labs 07/04/23 0347 07/03/23 1800 07/03/23 0307 GLUCOSE 104 116 104 Telemetry: I have personally reviewed and interpreted the telemetry from the last 24 hours. Resultsshow episodes of sinus morgan, Heart Rate: [56-66] Assessment: Loida Roque is a 53 y.o. female with a PMH of hx of mild nonobstructive mid LAD ASCVD on CCTA 09/2022, remote cardiac catheterization with normal coronaries 08/2019 with recent repeat C 04/2023 with nonobstructive CAD, supraventricular tachycardia (AVNRT since 06/2021) s/p EPS and SVT ablation on 04/01/[address] Tovar, paroxysmal A-fib (diagnosed on 10/20/2022), HFpEF, pulmonary emboli on Eliquis, and restrictive lung disease secondary to obesity who presented to OSH with chest pain . Patient has recently undergone extensive workup for ACS that has been unrevealing. 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 The patient current presentation is different with positive cardiac markers. Patient transferred to [facility] for further work-up and evaluation. On arrival, patient does appear to be volume overloaded. Cardiology consulted for MINOCA, and rec diuresis. She reported abdominal pain that is deemed to be due to SMA stenosis seen on abdominal imaging. Nows/p SMA stenting on 07/01 without apparent complication. Plan: #NSTEMI, likely II in setting of fluid overload #C/f MINOCA # Elevated troponins most likely demand. Underwent extensive cardia work last visit -ASA discontinued given preference for antiplatelet monotherapy with plavix as below -continue Atorvastatin 40mg PO daily -Cardiology consulted, no further ischemic evaluation at this time -Imdur discontinued due to migraines - r/o arrhythmic contribution with zio on discharge -Toprol XL12.5 daily -ranolazine at 1000mg BD(Nomral Qtc ~450) #SMA artery stenosis, s/p stenting - patient reporting longstanding intermittent LLQ pain. Sometimes located lower abd, sometimes epigastric. - simethicone PRN. Miralax daily and senakot BID ordered - CT A/P :Severe stenosis of the proximal SMA -duplex visceral arteries: Patent superior mesenteric artery with elevated velocities consistent with 50% or greater stenosis in the proximal segment. Patent proximal to mid celiac artery with no evidence of significant stenosis. - S/p SMA stenting with Vascular Surgery 07/01 with interval improvement in abdominal discomfort -Continue plavix 75mg daily, no indication for triple therapy with ASA per Vascular #Decompensated HFpEF -Weight 229 lb today, up from 223 lb since admission - Torsemide 40mg this AM -Goal weight < 223 (admission weight) #Bibasilar atelectasis #restrictive lung disease secondary to obesity CT A/P -Bibasilar groundglass opacities, favored atelectasis given dependent predilection, however, a superimposed infectious/inflammatory process or alveolar edema is not excluded. Afebrile , No White count , ABX not indicated at this time Incentive spirometer #pulmonary emboli on Eliquis #supraventricular tachycardia (AVNRT since 06/2021) #paroxysmal A-fib (diagnosed on 10/20/2022), Eliquis Last taken at 7 pm on 06/13/23 - Transition back to Eliquis tomorrow pending stability following SMA stenting #Migraines - Home nurtec supply has run out, pt unable to have refill brought to hospital -TAM today 2/2 SLN, unlikely migraine Diet: Daily Healthy Menu Choices/Cardiac diet ([facility]-Diet) DVT Prophylaxis: DOAC Code status: Attempt Cardiopulmonary Resuscitation - Inpatient Disposition: Discharge Location: [facility] Basic Mobility Raw Score: 24 PT: OT: PCP JOCY Franco [phone] Lino Calles MD 07/04/2023 * Ana Paula Borja RN - 07/04/2023 7:48 AM EDT Assumed care of pt at 0700 from [facility]. Pt a&Ox4, no respiratory distress, skin normal temperature, color and condition. Pt c/o R knee pain, voltaren gel applied. PRN nebulizer given in am togood effect. Pt ambulated multiple times independently in hallway. At 1130 pt c/o 7/10 heart chestpain that woke her up from a nap that radiated down her L arm. Pt c/o nausea and chills. Provider p aged and SL NTG administered x3. EKG obtained. Call lombardo within reach. Safety maintained. Care handoff to [facility] without incident. * Marifer Painting RCP - 07/04/2023 3:47 AM EDT Respiratory Therapy NIV Note NIV Settings: NIV Mode: CPAP PEEP/CPAP (cm H2O): 12 cm H20 FiO2 (%): 21 % NIV Measurements: Resp: 20 Mve: 11 Leak (L/min): 4 L/min Vte: 471 SpO2: 98 % Skin Assessment: NIV Skin Assessment WDL: WDL Mepilex Applied: No Nares Assessment WDL: WDL Assessment: Loida was compliant with CPAP +12 overnight without issues. Plan: Continue NOC CPAP. Marifer Painting RCP * Lino Calles MD - 07/03/2023 8:59 AM EDT CV HOSPITALIST 2 - [facility] DAILY PROGRESS NOTE Page [phone] to reach a provider 28/09 Admit Date: 06/14/2023 Encounter Date July 03, 2023 Anticipated Discharge Date: 07/05/2023 Hospital Day: 19 Active Hospital Problems Diagnosis NSTEMI (non-ST elevated myocardial infarction) Resolved Hospital Problems No resolved problems to display. 24 Hour Events/Subjective: NAEON - Weight 229 lb, up from 223 since admission -Hgb stable following SMA stenting yesterday -She reports right leg pain that travels from right groin access site down right leg as well as to right flank -Per further discussion with her, flank discomfort is not new but chronic -Right pedal pulses intact -Pt reports interval resolution of prandial abdominal pain since stent placement -Dosed with metolazone 2.5mg, torsemide 40mg this AM -Bladder scan today with <100ml urine -Pt developed acute onset dyspnea while laying down this afternoon with associated chest pain -Remained non-hypoxic, vitals stable -Wheezing noted on exam, interval improvement in chest pain and dyspnea following duonebs treatment -CXR without acute pathology -EKG stable without acute ischemic changes Medications: Scheduled Meds: clopidogreL 75 mg Oral Daily ranolazine ER 1,000 mg Oral BID lidocaine 1 patch Transdermal Q24H rimegepant 75 mg Oral Q48H metoprolol succinate XL 12.5 mg Oral Daily senna-docusate 2 tablet Oral BID polyethylene glycoL (MIRALAX) oral powder 17 g Oral Daily amLODIPine 2.5 mg Oral Daily atorvastatin 40 mg Oral QPM DULoxetine DR 60 mg Oral Daily rOPINIRole 2 mg Oral BID gabapentin 600 mg Oral Nightly melatonin 6 mg Oral Nightly topiramate 100 mg Oral Nightly spironolactone 25 mg Oral Daily pantoprazole EC 40 mg Oral Daily sodium chloride 0.9 % (flush) 5 mL Intravenous BID aspirin EC 81 mg Oral Daily lidocaine 1 patch Transdermal Daily Continuous Infusions: heparin (porcine) infusion 850 Units/hr (07/03/23 1230) PRN Meds:.ipratropium-albuteroL, oxyCODONE-acetaminophen, ondansetron, heparin (porcine) infusion AND heparin (porcine), nitroGLYcerin, simethicone, loratadine, sodium chloride 0.9 % (flush), lidocaine Objective: Last value Range last 24 hrs Temp: 36.7 ??C (98.1 ??F) Temp: [36.7 ??C (98 ??F)-37.1 ??C (98.8 ??F)] Heart Rate: 56 Heart Rate from SpO2: 56 bpm Heart Rate: [50-64] BP: 115/61 BP: (94-117)/(48-66) Resp: 18 Resp: [18-20] SpO2: 96 % SpO2: [96 %-99 %] Height: 162.6 cm (5' 4) Weight: 103.9 kg (229 lb) BMI (Calculated): 38.14 BMI Classification: Obese Admit weight: 100.79 kg Patient Vitals for the past 168 hrs: Weight 07/03/23 0552 103.9 kg (229 lb) 07/02/23 0500 103.9 kg (229 lb 1.6 oz) 07/01/23 0300 103.8 kg (228 lb 12.8 oz) 06/30/23 0325 103 kg (227 lb 1.6 oz) 06/29/23 0333 102.5 kg (226 lb) 06/28/23 0307 102.1 kg (225 lb) 06/27/23 0343 103.2 kg (227 lb 9.6 oz) Intake/Output Summary (Last 24 hours) at 07/03/2023 1909 Last data filed at 07/03/2023 1800 Gross per 24 hour Intake 1384.6 ml Output 2850 ml Net -1465.4 ml Physical Exam: Physical Exam Constitutional: In no apparent distress. Cardiovascular: Rate and Rhythm: Normal rate and regular rhythm. Pulmonary: Effort: Pulmonary effort is normal. Breath sounds: Normal breath sounds. Abdominal: General: There is no distension. Palpations: Abdomen is soft. Tenderness: There is abdominal tenderness. There is no guarding or rebound. Musculoskeletal: Cervical back: Neck supple. No rigidity. Right lower leg: No edema. Left lower leg: No edema. Skin: General: Skin is warm and dry. Neurological: General: No focal deficit present. Mental Status: She is alert. Labs: Recent Labs 07/03/23 0307 07/02/23 0358 07/01/23 0256 06/30/23 0314 06/29/23 0239 WBC 8.2 7.6 6.9 8.0 8.3 HGB 12.5 12.9 12.8 13.1 13.2 HCT 38.5 39.5 39.0 39.5 38.9 PLATELET 203 200 224 235 237 MCV 97.0* 95.9* 96.5* 93.6 92.8 Recent Labs 07/03/23 1800 07/03/23 0307 07/02/23 0358 07/01/23 0256 06/30/23 0314 06/29/23 0239 NA 137 138 133* 137 137 138 CL 102 107 104 105 104 105 CO2 21* 20* 21* 22 23 22 K 4.1 4.2 4.1 4.1 3.8 3.9 MAGNESIUM 0.89 0.93 0.95 0.95 0.94 0.92 PHOS -- 3.6 3.8 4.1 4.4 4.0 CALCIUM 9.5 8.8 8.8 9.0 9.1 9.1 BUN 16 16 15 16 18 21* CREATININE 1.37* 1.20 1.21* 1.21* 1.22* 1.17 Coags No results for input(s): INR, PT, PTT, DDIMER in the last 168 hours. Cardiac Markers No results for input(s): CK, TROPONINTHS, PROBNP in the last 168 hours. Endocrine Recent Labs 06/15/23 0428 04/18/23 0210 04/17/23 0333 02/08/23 2208 09/27/22 0307 TSH 2.98 -- 5.93* 4.00 -- HA1C -- 5.6 -- -- 5.6 No results for input(s): CHLPL, TRIG, HDL, LDLCHOL, CHOLHDL in the last 168 hours. Recent Labs 07/03/23 1800 07/03/23 0307 07/02/23 0358 GLUCOSE 116 104 96 Telemetry: I have personally reviewed and interpreted the telemetry from the last 24 hours. Resultsshow episodes of sinus morgan, Heart Rate: [55-64] Assessment: Loida Roque is a 53 y.o. 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 Tovar, paroxysmal A-fib (diagnosed on 10/20/2022), HFpEF, pulmonary emboli on Eliquis, and restrictive lung disease secondary to obesity who presented to OSH with chest pain . Patient has recently undergone extensive workup for ACS that has been unrevealing. 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 The patient current presentation is different with positive cardiac markers. Patient transferred to [facility] for further work-up and evaluation. On arrival, patient does appear to be volume overloaded. Cardiology consulted for MINOCA, and rec diuresis. She reported abdominal pain that is deemed to be due to SMA stenosis seen on abdominal imaging. Nows/p SMA stenting on 07/01 without apparent complication. Plan: #NSTEMI, likely II in setting of fluid overload #C/f MINOCA # Elevated troponins most likely demand. Underwent extensive cardia work last visit -ASA discontinued given preference for antiplatelet monotherapy with plavix as below -continue Atorvastatin 40mg PO daily -Cardiology consulted, no further ischemic evaluation at this time -Imdur discontinued due to migraines - r/o arrhythmic contribution with zio on discharge -Toprol XL12.5 daily -ranolazine at 1000mg BD(Nomral Qtc ~450) #SMA artery stenosis, s/p stenting - patient reporting longstanding intermittent LLQ pain. Sometimes located lower abd, sometimes epigastric. - simethicone PRN. Miralax daily and senakot BID ordered - CT A/P :Severe stenosis of the proximal SMA -duplex visceral arteries: Patent superior mesenteric artery with elevated velocities consistent with 50% or greater stenosis in the proximal segment. Patent proximal to mid celiac artery with no evidence of significant stenosis. - S/p SMA stenting with Vascular Surgery 07/01 with interval improvement in abdominal discomfort -Continue plavix 75mg daily, no indication for triple therapy with ASA per Vascular #Decompensated HFpEF -Weight 229 lb today, up from 223 lb since admission - Metolazone 2.5mg followed by Torsemide 40mg this AM -Goal weight < 223 (admission weight) #Bibasilar atelectasis #restrictive lung disease secondary to obesity CT A/P -Bibasilar groundglass opacities, favored atelectasis given dependent predilection, however, a superimposed infectious/inflammatory process or alveolar edema is not excluded. Afebrile , No White count , ABX not indicated at this time Incentive spirometer #pulmonary emboli on Eliquis #supraventricular tachycardia (AVNRT since 06/2021) #paroxysmal A-fib (diagnosed on 10/20/2022), Eliquis Last taken at 7 pm on 06/13/23 - Transition back to Eliquis tomorrow pending stability following SMA stenting #Migraines - continue home nurtec q48hr dose adjusted - migraine cocktail PRN Diet: Daily Healthy Menu Choices/Cardiac diet ([facility]-Diet) DVT Prophylaxis: DOAC Code status: Attempt Cardiopulmonary Resuscitation - Inpatient Disposition: Discharge Location: [facility] Basic Mobility Raw Score: 24 PT: OT: PCP JOCY Franco [phone] Lino Calles MD 07/03/2023 * Van Muse MD - 07/02/2023 5:29 PM EDT Vascular Surgery Post Op Check Loida Roque is a 53 y.o. female status post a SMA VBX stent via R common femoral access withProglide . S: Reports no abdominal pain. Reports no right groin or leg pain, numbness, or weakness. Reports nofevers, chills, nausea, vomiting, chest pain, or shortness of breath. Offers no complaints O: Temp: [36.1 ??C (97 ??F)-36.9 ??C (98.5 ??F)] Heart Rate: [52-67] Resp: [11-18] BP: (82-131)/(32-67) SpO2: [90 %-100 %] Heart Rate from SpO2: [52 bpm-59 bpm] I/O last 3 completed shifts: In: 790 [P.O.:790] Out: 2400 [Urine:2400] I/O this shift: In: 211 [P.O.:211] Out: 1000 [Urine:1000] Physical Exam: GEN: Alert and appears stated age. Cooperative. In NAD. HEENT: Normocephalic and atraumatic. CV: Regular rate. Pulm: Breathing on room air. Abd: Soft, non-distended, non-tender to palpation. Skin: Color, texture, turgor normal. Neuro: Sensation and motor grossly intact. Able to wiggle toes, plantarflex, and dorsiflex feet. Extremities: R groin incision site with dressing with mild, dry staining, is intact and, no evidence of hematoma or active drainage. Vascular: Palpable DP/PT pulses bilaterally. Last wbc, hgb, hct plt Recent Labs 07/02/23 0358 WBC 7.6 HGB 12.9 HCT 39.5 AP Loida Roque is a 53 y.o. female status post a SMA VBX stent via R common femoral access with Proglide. She is currently in stable condition, pain is well controlled, and recovering well. - Continue aspirin, plavix, and statin - Hep gtt per primary team - Remainder of care per primary team Van Muse MD Vascular Surgery 07/02/23 [id number] * Lino Calles MD - 07/02/2023 9:55 AM EDT CV HOSPITALIST 2 - [facility] DAILY PROGRESS NOTE Page [phone] to reach a provider 28/09 Admit Date: 06/14/2023 Encounter Date July 02, 2023 Anticipated Discharge Date: 07/05/2023 Hospital Day: 18 Active Hospital Problems Diagnosis NSTEMI (non-ST elevated myocardial infarction) Resolved Hospital Problems No resolved problems to display. 24 Hour Events/Subjective: NAEON - Weight 229 lb, up from 223 since admission -S/p SMA stenting today with Vascular surgery -Pt underwent Plavix load following stenting per Vascular recs Medications: Scheduled Meds: [START ON 07/03/2023] clopidogreL 75 mg Oral Daily ranolazine ER 1,000 mg Oral BID lidocaine 1 patch Transdermal Q24H rimegepant 75 mg Oral Q48H metoprolol succinate XL 12.5 mg Oral Daily senna-docusate 2 tablet Oral BID polyethylene glycoL (MIRALAX) oral powder 17 g Oral Daily amLODIPine 2.5 mg Oral Daily atorvastatin 40 mg Oral QPM DULoxetine DR 60 mg Oral Daily rOPINIRole 2 mg Oral BID gabapentin 600 mg Oral Nightly melatonin 6 mg Oral Nightly topiramate 100 mg Oral Nightly spironolactone 25 mg Oral Daily pantoprazole EC 40 mg Oral Daily sodium chloride 0.9 % (flush) 5 mL Intravenous BID aspirin EC 81 mg Oral Daily lidocaine 1 patch Transdermal Daily Continuous Infusions: heparin (porcine) infusion 850 Units/hr (07/02/23 1512) PRN Meds:.oxyCODONE-acetaminophen, ondansetron, heparin (porcine) infusion AND heparin (porcine), nitroGLYcerin, simethicone, loratadine, sodium chloride 0.9 % (flush), lidocaine Objective: Last value Range last 24 hrs Temp: 37.1 ??C (98.7 ??F) Temp: [36.1 ??C (97 ??F)-37.1 ??C (98.7 ??F)] Heart Rate: 59 Heart Rate from SpO2: 58 bpm Heart Rate: [52-67] BP: 114/53 BP: (82-131)/(32-67) Resp: 18 Resp: [11-18] SpO2: 97 % SpO2: [90 %-100 %] Height: 162.6 cm (5' 4) Weight: 103.9 kg (229 lb 1.6 oz) BMI (Calculated): 38.14 BMI Classification: Obese Admit weight: 100.79 kg Patient Vitals for the past 168 hrs: Weight 07/02/23 0500 103.9 kg (229 lb 1.6 oz) 07/01/23 0300 103.8 kg (228 lb 12.8 oz) 06/30/23 0325 103 kg (227 lb 1.6 oz) 06/29/23 0333 102.5 kg (226 lb) 06/28/23 0307 102.1 kg (225 lb) 06/27/23 0343 103.2 kg (227 lb 9.6 oz) 06/26/23 0145 102.3 kg (225 lb 9.6 oz) Intake/Output Summary (Last 24 hours) at 07/02/20232144 Last data filed at 07/02/20232004 Gross per 24 hour Intake 696 ml Output 1900 ml Net -1204 ml Physical Exam: Physical Exam Constitutional: In no apparent distress. Cardiovascular: Rate and Rhythm: Normal rate and regular rhythm. Pulmonary: Effort: Pulmonary effort is normal. Breath sounds: Normal breath sounds. Abdominal: General: There is no distension. Palpations: Abdomen is soft. Tenderness: There is abdominal tenderness. There is no guarding or rebound. Musculoskeletal: Cervical back: Neck supple. No rigidity. Right lower leg: No edema. Left lower leg: No edema. Skin: General: Skin is warm and dry. Neurological: General: No focal deficit present. Mental Status: She is alert. Labs: Recent Labs 07/02/23 0358 07/01/23 0256 06/30/23 0314 06/29/23 0239 06/28/23 0152 WBC 7.6 6.9 8.0 8.3 8.1 HGB 12.9 12.8 13.1 13.2 13.4 HCT 39.5 39.0 39.5 38.9 40.6 PLATELET 200 224 235 237 238 MCV 95.9* 96.5* 93.6 92.8 94.4 Recent Labs 07/02/23 0358 07/01/23 0256 06/30/23 0314 06/29/23 0239 06/28/23 0152 NA 133* 137 137 138 138 CL 104 105 104 105 105 CO2 21* 22 23 22 21* K 4.1 4.1 3.8 3.9 4.0 MAGNESIUM 0.95 0.95 0.94 0.92 0.93 PHOS 3.8 4.1 4.4 4.0 4.5 CALCIUM 8.8 9.0 9.1 9.1 9.0 BUN 15 16 18 21* 24* CREATININE 1.21* 1.21* 1.22* 1.17 1.21* Coags No results for input(s): INR, PT, PTT, DDIMER in the last 168 hours. Cardiac Markers No results for input(s): CK, TROPONINTHS, PROBNP in the last 168 hours. Endocrine Recent Labs 06/15/23 0428 04/18/23 0210 04/17/23 0333 02/08/23 2208 09/27/22 0307 TSH 2.98 -- 5.93* 4.00 -- HA1C -- 5.6 -- -- 5.6 No results for input(s): CHLPL, TRIG, HDL, LDLCHOL, CHOLHDL in the last 168 hours. Recent Labs 07/02/23 0358 07/01/23 0256 06/30/23 0314 GLUCOSE 96 95 103 Telemetry: I have personally reviewed and interpreted the telemetry from the last 24 hours. Resultsshow episodes of sinus morgan, Heart Rate: [52-67] Assessment: Loida Roque is a 53 y.o. 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 Tovar, paroxysmal A-fib (diagnosed on 10/20/2022), HFpEF, pulmonary emboli on Eliquis, and restrictive lung disease secondary to obesity who presented to OSH with chest pain . Patient has recently undergone extensive workup for ACS that has been unrevealing. 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 The patient current presentation is different with positive cardiac markers. Patient transferred to [facility] for further work-up and evaluation. On arrival, patient does appear to be volume overloaded. Cardiology consulted for MINOCA, and rec diuresis. She reported abdominal pain that is deemed to be due to SMA stenosis seen on abdominal imaging. Nows/p SMA stenting on 07/01 without apparent complication. Plan: #NSTEMI, likely II #C/f MINOCA # Elevated troponins most likely demand. Underwent extensive cardia work last visit -ASA 81mg PO daily -continue Atorvastatin 40mg PO daily -Cardiology consulted, no further ischemic evaluation at this time -Imdur discontinued due to migraines - r/o arrhythmic contribution with zio on discharge -Toprol XL12.5 daily -ranolazine at 1000mg BD(Nomral Qtc ~450) #SMA artery stenosis, s/p stenting - patient reporting longstanding intermittent LLQ pain. Sometimes located lower abd, sometimes epigastric. - simethicone PRN. Miralax daily and senakot BID ordered - CT A/P :Severe stenosis of the proximal SMA -duplex visceral arteries: Patent superior mesenteric artery with elevated velocities consistent with 50% or greater stenosis in the proximal segment. Patent proximal to mid celiac artery with no evidence of significant stenosis. - S/p SMA stenting with Vascular Surgery today, appreciate recs #Decompensated HFpEF -Weight 229 lb today, up from 223 lb since admission - Plan to restart aggressive IV diuresis tomorrow #Bibasilar atelectasis #restrictive lung disease secondary to obesity CT A/P -Bibasilar groundglass opacities, favored atelectasis given dependent predilection, however, a superimposed infectious/inflammatory process or alveolar edema is not excluded. Afebrile , No White count , ABX not indicated at this time Incentive spirometer #pulmonary emboli on Eliquis #supraventricular tachycardia (AVNRT since 06/2021) #paroxysmal A-fib (diagnosed on 10/20/2022), Eliquis Last taken at 7 pm on 06/13/23 - Transition back to Eliquis tomorrow pending stability following SMA stenting #Migraines - continue home nurtec q48hr dose adjusted - migraine cocktail PRN Diet: Daily Healthy Menu Choices/Cardiac diet ([facility]-Diet) DVT Prophylaxis: DOAC Code status: Attempt Cardiopulmonary Resuscitation - Inpatient Disposition: Discharge Location: [facility] Basic Mobility Raw Score: 24 PT: OT: PCP JOCY Franco [phone] Lino Calles MD 07/02/2023 * Jaspreet Griffith [facility] - 07/02/2023 6:35 AM EDT Respiratory Care Non-Invasive Ventilation Note Indication: MARYLOU/CSA with High FiO2 requirement NIV Protocol: Yes NIV Settings: NIV Mode: CPAP 12 CPAP FiO2 (%): 21 % Interface: Mask: Face Mask Size: Medium Skin Integrity: WDL Mepilex: No NIV Measurements: Resp: 18 Vte: 628 Mve: 12.4 Leak (L/min): 1 L/min SpO2: 97 % Lung sounds: Clear Inhaled Medications: None Assessment: Pt complain with NOV overnight. * Terrence Keating MD - 07/01/2023 7:39 AM EDT CV HOSPITALIST 2 - [facility] DAILY PROGRESS NOTE Page [phone] to reach a provider 28/09 Admit Date: 06/14/2023 Encounter Date July 01, 2023 Anticipated Discharge Date: 07/02/2023 Hospital Day: 17 Active Hospital Problems Diagnosis NSTEMI (non-ST elevated myocardial infarction) Resolved Hospital Problems No resolved problems to display. 24 Hour Events/Subjective: NAEON - Still complains of abdominal pain, but controlled. - little appetitie. Afraid to eat a large meal. - Denies fever. Has good bowel movements. - Awaiting SMA stenting on Wednesday. Medications: Scheduled Meds: ranolazine ER 1,000 mg Oral BID lidocaine 1 patch Transdermal Q24H rimegepant 75 mg Oral Q48H metoprolol succinate XL 12.5 mg Oral Daily senna-docusate 2 tablet Oral BID polyethylene glycoL (MIRALAX) oral powder 17 g Oral Daily sertraline 25 mg Oral Daily amLODIPine 2.5 mg Oral Daily atorvastatin 40 mg Oral QPM DULoxetine DR 60 mg Oral Daily rOPINIRole 2 mg Oral BID gabapentin 600 mg Oral Nightly melatonin 6 mg Oral Nightly topiramate 100 mg Oral Nightly spironolactone 25 mg Oral Daily pantoprazole EC 40 mg Oral Daily sodium chloride 0.9 % (flush) 5 mL Intravenous BID aspirin EC 81 mg Oral Daily lidocaine 1 patch Transdermal Daily Continuous Infusions: heparin (porcine) infusion 850 Units/hr (06/30/23 2308) PRN Meds:.oxyCODONE-acetaminophen, ondansetron, heparin (porcine) infusion AND heparin (porcine), nitroGLYcerin, simethicone, loratadine, sodium chloride 0.9 % (flush), lidocaine Objective: Last value Range last 24 hrs Temp: 36.4 ??C (97.6 ??F) Temp: [36.3 ??C (97.3 ??F)-36.8 ??C (98.3 ??F)] Heart Rate: 54 Heart Rate: [45-62] BP: 103/54 BP: (94-107)/(48-62) Resp: 17 Resp: [16-22] SpO2: 97 % SpO2: [93 %-99 %] Height: 162.6 cm (5' 4) Weight: 103.8 kg (228 lb 12.8 oz) BMI (Calculated): 38.14 BMI Classification: Obese Admit weight: 100.79 kg Patient Vitals for the past 168 hrs: Weight 07/01/23 0300 103.8 kg (228 lb 12.8 oz) 06/30/23 0325 103 kg (227 lb 1.6 oz) 06/29/23 0333 102.5 kg (226 lb) 06/28/23 0307 102.1 kg (225 lb) 06/27/23 0343 103.2 kg (227 lb 9.6 oz) 06/26/23 0145 102.3 kg (225 lb 9.6 oz) 06/25/23 0357 101.4 kg (223 lb 9.6 oz) Intake/Output Summary (Last 24 hours) at 07/01/2023 0739 Last data filed at 07/01/2023 0400 Gross per 24 hour Intake 725 ml Output 1675 ml Net -950 ml Physical Exam: Physical Exam Constitutional: In no apparent distress. Cardiovascular: Rate and Rhythm: Normal rate and regular rhythm. Pulmonary: Effort: Pulmonary effort is normal. Breath sounds: Normal breath sounds. Abdominal: General: There is no distension. Palpations: Abdomen is soft. Tenderness: There is abdominal tenderness. There is no guarding or rebound. Musculoskeletal: Cervical back: Neck supple. No rigidity. Right lower leg: No edema. Left lower leg: No edema. Skin: General: Skin is warm and dry. Neurological: General: No focal deficit present. Mental Status: She is alert. Labs: Recent Labs 07/01/23 0256 06/30/23 0314 06/29/23 0239 06/28/23 0152 06/27/23 0434 WBC 6.9 8.0 8.3 8.1 7.6 HGB 12.8 13.1 13.2 13.4 12.9 HCT 39.0 39.5 38.9 40.6 39.0 PLATELET 224 235 237 238 245 MCV 96.5* 93.6 92.8 94.4 94.0 Recent Labs 07/01/23 0256 06/30/23 0314 06/29/23 0239 06/28/23 0152 06/27/23 2006 06/27/23 0434 NA 137 137 138 138 141 138 CL 105 104 105 105 106 105 CO2 22 23 22 21* 24 22 K 4.1 3.8 3.9 4.0 4.3 3.9 MAGNESIUM 0.95 0.94 0.92 0.93 -- 0.90 PHOS 4.1 4.4 4.0 4.5 -- 4.7* CALCIUM 9.0 9.1 9.1 9.0 9.3 9.1 BUN 16 18 21* 24* 24* 26* CREATININE 1.21* 1.22* 1.17 1.21* 1.28* 1.22* Coags No results for input(s): INR, PT, PTT, DDIMER in the last 168 hours. Cardiac Markers No results for input(s): CK, TROPONINTHS, PROBNP in the last 168 hours. Endocrine Recent Labs 06/15/23 0428 04/18/23 0210 04/17/23 0333 02/08/23 2208 09/27/22 0307 TSH 2.98 -- 5.93* 4.00 -- HA1C -- 5.6 -- -- 5.6 No results for input(s): CHLPL, TRIG, HDL, LDLCHOL, CHOLHDL in the last 168 hours. Recent Labs 07/01/23 0256 06/30/23 0314 06/29/23 0239 GLUCOSE 95 103 100 Telemetry: I have personally reviewed and interpreted the telemetry from the last 24 hours. Resultsshow episodes of sinus morgan, Heart Rate: [45-54] Assessment: Loida Roque is a 53 y.o. 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 Tovar, paroxysmal A-fib (diagnosed on 10/20/2022), HFpEF, pulmonary emboli on Eliquis, and restrictive lung disease secondary to obesity who presented to OSH with chest pain . Patient has recently undergone extensive workup for ACS that has been unrevealing. 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 The patient current presentation is different with positive cardiac markers. Patient transferred to [facility] for further work-up and evaluation. On arrival, patient does appear to be volume overloaded. Cardiology consulted for MINOCA, and rec diuresis. She reported abdominal pain that is deemed to be due to SMA stenosis seen on abdominal imaging. Patient is awaiting SMA stenting on Wednesday. Plan: #NSTEMI, likely II #C/f MINOCA # Elevated troponins most likely demand. Underwent extensive cardia work last visit -ASA 81mg PO daily -continue Atorvastatin 40mg PO daily, -U tox - negative -Cardiology consulted -Imdur discontinued due to migraines - r/o arrhythmic contribution with zio on discharge -Toprol XL12.5 daily -ranolazine at 1000mg BD(Nomral Qtc ~450) #SMA artery stenosis - patient reporting longstanding intermittent LLQ pain. Sometimes located lower abd, sometimes epigastric. - simethicone PRN. Miralax daily and senakot BID ordered - KUB no revealing findings - CT A/P :Severe stenosis of the proximal SMA -duplex visceral arteries: Patent superior mesenteric artery with elevated velocities consistent with 50% or greater stenosis in the proximal segment. Patent proximal to mid celiac artery with no evidence of significant stenosis. - Vascular planning SMA stenting on wednesday. - Keep NPO after midnight. #Decompensated HFpEF - HOLD home torsemide - Hold lasix due to CATIE today. #Bibasilar atelectasis #restrictive lung disease secondary to obesity CT A/P -Bibasilar groundglass opacities, favored atelectasis given dependent predilection, however, a superimposed infectious/inflammatory process or alveolar edema is not excluded. Afebrile , No White count , ABX not indicated at this time Incentive spirometer #pulmonary emboli on Eliquis #supraventricular tachycardia (AVNRT since 06/2021) #paroxysmal A-fib (diagnosed on 10/20/2022), Eliquis Last taken at 7 pm on 06/13/23 - switch to heparin on admission. #Migraines - continue home nurtec q48hr dose adjusted - migraine cocktail PRN Diet: Daily Healthy Menu Choices/Cardiac diet ([facility]-Diet) NPO diet (Give Meds) DVT Prophylaxis: DOAC Code status: Attempt Cardiopulmonary Resuscitation - Inpatient Disposition: Discharge Location: AM-PAC Basic Mobility Raw Score: 24 PT: OT: PCP JOCY Franco [phone] Terrence Keating MD 07/01/2023 * Terrence Keating MD - 06/30/2023 8:00 AM EDT [facility]ITALIST 2 - [facility] DAILY PROGRESS NOTE Page [phone] to reach a provider 28/09 Admit Date: 06/14/2023 Encounter Date June 30, 2023 Anticipated Discharge Date: 07/02/2023 Hospital Day: 16 Active Hospital Problems Diagnosis NSTEMI (non-ST elevated myocardial infarction) Resolved Hospital Problems No resolved problems to display. 24 Hour Events/Subjective: NAEON - Still complains of abdominal pain, but controlled. - little appetitie. Afraid to eat a large meal. - denies fever. Has good bowel movements. - awaiting SMA stenting possibly on pending availabilty Medications: Scheduled Meds: ranolazine ER 1,000 mg Oral BID lidocaine 1 patch Transdermal Q24H rimegepant 75 mg Oral Q48H metoprolol succinate XL 12.5 mg Oral Daily senna-docusate 2 tablet Oral BID polyethylene glycoL (MIRALAX) oral powder 17 g Oral Daily sertraline 25 mg Oral Daily amLODIPine 2.5 mg Oral Daily atorvastatin 40 mg Oral QPM DULoxetine DR 60 mg Oral Daily rOPINIRole 2 mg Oral BID gabapentin 600 mg Oral Nightly melatonin 6 mg Oral Nightly topiramate 100 mg Oral Nightly spironolactone 25 mg Oral Daily pantoprazole EC 40 mg Oral Daily sodium chloride 0.9 % (flush) 5 mL Intravenous BID aspirin EC 81 mg Oral Daily lidocaine 1 patch Transdermal Daily Continuous Infusions: heparin (porcine) infusion 850 Units/hr (06/29/232137) PRN Meds:.oxyCODONE-acetaminophen, ondansetron, heparin (porcine) infusion AND heparin (porcine), nitroGLYcerin, simethicone, loratadine, sodium chloride 0.9 % (flush), lidocaine Objective: Last value Range last 24 hrs Temp: 36.7 ??C (98.1 ??F) Temp: [36.3 ??C (97.3 ??F)-36.7 ??C (98.1 ??F)] Heart Rate: 50 Heart Rate: [43-62] BP: 94/51 BP: (93-106)/(48-65) Resp: 16 Resp: [16-20] SpO2: 93 % SpO2: [93 %-100 %] Height: 162.6 cm (5' 4) Weight: 103 kg (227 lb 1.6 oz) BMI (Calculated): 38.14 BMI Classification: Obese Admit weight: 100.79 kg Patient Vitals for the past 168 hrs: Weight 06/30/23 0325 103 kg (227 lb 1.6 oz) 06/29/23 0333 102.5 kg (226 lb) 06/28/23 0307 102.1 kg (225 lb) 06/27/23 0343 103.2 kg (227 lb 9.6 oz) 06/26/23 0145 102.3 kg (225 lb 9.6 oz) 06/25/23 0357 101.4 kg (223 lb 9.6 oz) 06/24/23 0600 103 kg (227 lb) Intake/Output Summary (Last 24 hours) at 06/30/2023 1607 Last data filed at 06/30/2023 1550 Gross per 24 hour Intake 865 ml Output 2575 ml Net -1710 ml Physical Exam: Physical Exam Constitutional: In no apparent distress. Cardiovascular: Rate and Rhythm: Normal rate and regular rhythm. Pulmonary: Effort: Pulmonary effort is normal. Breath sounds: Normal breath sounds. Abdominal: General: There is no distension. Palpations: Abdomen is soft. Tenderness: There is abdominal tenderness. There is no guarding or rebound. Musculoskeletal: Cervical back: Neck supple. No rigidity. Right lower leg: No edema. Left lower leg: No edema. Skin: General: Skin is warm and dry. Neurological: General: No focal deficit present. Mental Status: She is alert. Labs: Recent Labs 06/30/23 0314 06/29/23 0239 06/28/23 0152 06/27/23 0434 06/26/23 0406 WBC 8.0 8.3 8.1 7.6 8.4 HGB 13.1 13.2 13.4 12.9 14.0 HCT 39.5 38.9 40.6 39.0 43.6 PLATELET 235 237 238 245 258 MCV 93.6 92.8 94.4 94.0 96.5* Recent Labs 06/30/23 0314 06/29/23 0239 06/28/23 0152 06/27/23200506/27/23 0434 06/26/23 1658 06/26/23 0406 NA 137 138 138 141 138 < > 135 CL 104 105 105 106 105 < > 104 CO2 22 21* 24 22 < > 19* K 3.8 3.9 4.0 4.3 3.9 < > 4.2 MAGNESIUM 0.94 0.92 0.93 -- 0.90 -- 0.96 PHOS 4.4 4.0 4.5 -- 4.7* -- 4.3 CALCIUM 9.1 9.1 9.0 9.3 9.1 < > 9.6 BUN 18 21* 24* 24* 26* < > 25* CREATININE 1.22* 1.17 1.21* 1.28* 1.22* < > 1.24* < > = values in this interval not displayed. Coags No results for input(s): INR, PT, PTT, DDIMER in the last 168 hours. Cardiac Markers Recent Labs 06/24/23 0338 PROBNP 1,239* Endocrine Recent Labs 06/15/23 0428 04/18/23 0210 04/17/23 0333 02/08/23 2208 09/27/22 0307 TSH 2.98 -- 5.93* 4.00 -- HA1C -- 5.6 -- -- 5.6 No results for input(s): CHLPL, TRIG, HDL, LDLCHOL, CHOLHDL in the last 168 hours. Recent Labs 06/30/23 0314 06/29/23 0239 06/28/23 0152 GLUCOSE 103 100 101 Telemetry: I have personally reviewed and interpreted the telemetry from the last 24 hours. Resultsshow episodes of sinus morgan. Assessment: Loida Roque is a 53 y.o. 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 Tovar, paroxysmal A-fib (diagnosed on 10/20/2022), HFpEF, pulmonary emboli on Eliquis, and restrictive lung disease secondary to obesity who presented to OSH with chest pain. Patient has recently undergone extensive workup for ACS that has been unrevealing. 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 The patient current presentation is different with positive cardiac markers. Patient transferred to [facility] for further work-up and evaluation. On arrival, patient does appear to be volume overloaded. Cardiology consulted for MINOCA, and rec diuresis. Course c/b profound hypokalemia (K 2.9 on arrival) requiring aggressive repletion. Patient now diuresing well, with net negative 1L. Will aim for goal dry weight <220lbs. Given persistence of vague intermittent abd discomfort, will obtain CT AP w/ IV contrast to better assess for potential GI abnormalities. Plan: #NSTEMI, likely II #C/f MINOCA # Elevated troponins most likely demand. Underwent extensive cardia work last visit -ASA 81mg PO daily -continue Atorvastatin 40mg PO daily, -U tox - negative -Cardiology consulted -Imdur discontinued due to migraines - r/o arrhythmic contribution with zio on discharge -Toprol XL12.5 daily -ranolazine at 1000mg BD(Nomral Qtc ~450) #SMA artery stenosis - patient reporting longstanding intermittent LLQ pain. Sometimes located lower abd, sometimes epigastric. - simethicone PRN. Miralax daily and senakot BID ordered - KUB no revealing findings - CT A/P :Severe stenosis of the proximal SMA -duplex visceral arteries: Patent superior mesenteric artery with elevated velocities consistent with 50% or greater stenosis in the proximal segment. Patent proximal to mid celiac artery with no evidence of significant stenosis. - Vascular planning SMA stenting this week. - Keep NPO after midnight. #Decompensated HFpEF - HOLD home torsemide - Hold lasix due to CATIE today. #Bibasilar atelectasis #restrictive lung disease secondary to obesity CT A/P -Bibasilar groundglass opacities, favored atelectasis given dependent predilection, however, a superimposed infectious/inflammatory process or alveolar edema is not excluded. Afebrile , No White count , ABX not indicated at this time Incentive spirometer #pulmonary emboli on Eliquis #supraventricular tachycardia (AVNRT since 06/2021) #paroxysmal A-fib (diagnosed on 10/20/2022), Eliquis Last taken at 7 pm on 06/13/23 - switch to heparin on admission. #Migraines - continue home nurtec q48hr dose adjusted - migraine cocktail PRN Diet: Cardiac diet DVT Prophylaxis: DOAC Code status: Attempt Cardiopulmonary Resuscitation - Inpatient Disposition: Discharge Location: AM-PAC Basic Mobility Raw Score: 24 PT: OT: PCP JOCY Franco [phone] Terrence Keating MD 06/30/2023 * Terrence Keating MD - 06/29/2023 4:29 PM EDT [facility]PITALIST 2 - [facility] DAILY PROGRESS NOTE Page [phone] to reach a provider 24/7 Admit Date: 06/14/2023 Encounter Date June 29, 2023 Anticipated Discharge Date: 07/02/2023 Hospital Day: 15 Active Hospital Problems Diagnosis NSTEMI (non-ST elevated myocardial infarction) Resolved Hospital Problems No resolved problems to display. 24 Hour Events/Subjective: NAEON - Still complains of abdominal pain, but controlled. - little appetitie. Afraid to eat a large meal. - denies fever. Has good bowel movements. Medications: Scheduled Meds: ranolazine ER 1,000 mg Oral BID lidocaine 1 patch Transdermal Q24H rimegepant 75 mg Oral Q48H metoprolol succinate XL 12.5 mg Oral Daily senna-docusate 2 tablet Oral BID polyethylene glycoL (MIRALAX) oral powder 17 g Oral Daily sertraline 25 mg Oral Daily amLODIPine 2.5 mg Oral Daily atorvastatin 40 mg Oral QPM DULoxetine DR 60 mg Oral Daily rOPINIRole 2 mg Oral BID gabapentin 600 mg Oral Nightly melatonin 6 mg Oral Nightly topiramate 100 mg Oral Nightly spironolactone 25 mg Oral Daily pantoprazole EC 40 mg Oral Daily sodium chloride 0.9 % (flush) 5 mL Intravenous BID aspirin EC 81 mg Oral Daily lidocaine 1 patch Transdermal Daily Continuous Infusions: heparin (porcine) infusion 950 Units/hr (06/29/23 1342) PRN Meds:.oxyCODONE-acetaminophen, ondansetron, heparin (porcine) infusion AND heparin (porcine), nitroGLYcerin, simethicone, loratadine, sodium chloride 0.9 % (flush), lidocaine Objective: Last value Range last 24 hrs Temp: 36.6 ??C (97.9 ??F) Temp: [36.4 ??C (97.5 ??F)-36.6 ??C (97.9 ??F)] Heart Rate: (!) 49 Heart Rate: [49-69] BP: 98/57 BP: (98-116)/(44-88) Resp: 18 Resp: [16-18] SpO2: 98 % SpO2: [95 %-98 %] Height: 162.6 cm (5' 4) Weight: 102.5 kg (226 lb) BMI (Calculated): 38.14 BMI Classification: Obese Admit weight: 100.79 kg Patient Vitals for the past 168 hrs: Weight 06/29/23 0333 102.5 kg (226 lb) 06/28/23 0307 102.1 kg (225 lb) 06/27/23 0343 103.2 kg (227 lb 9.6 oz) 06/26/23 0145 102.3 kg (225 lb 9.6 oz) 06/25/23 0357 101.4 kg (223 lb 9.6 oz) 06/24/23 0600 103 kg (227 lb) 06/23/23 0340 102.1 kg (225 lb) Intake/Output Summary (Last 24 hours) at 06/29/2023 1631 Last data filed at 06/29/2023 1230 Gross per 24 hour Intake 2350.72 ml Output 2500 ml Net -149.28 ml Physical Exam: Physical Exam Constitutional: In no apparent distress. Cardiovascular: Rate and Rhythm: Normal rate and regular rhythm. Pulmonary: Effort: Pulmonary effort is normal. Breath sounds: Normal breath sounds. Abdominal: General: There is no distension. Palpations: Abdomen is soft. Tenderness: There is abdominal tenderness. There is no guarding or rebound. Musculoskeletal: Cervical back: Neck supple. No rigidity. Right lower leg: No edema. Left lower leg: No edema. Skin: General: Skin is warm and dry. Neurological: General: No focal deficit present. Mental Status: She is alert. Labs: Recent Labs 06/29/23 0239 06/28/23 0152 06/27/23 0434 06/26/23 0406 06/25/23 0150 WBC 8.3 8.1 7.6 8.4 7.2 HGB 13.2 13.4 12.9 14.0 14.4 HCT 38.9 40.6 39.0 43.6 42.9 PLATELET 237 238 245 258 241 MCV 92.8 94.4 94.0 96.5* 93.9 Recent Labs 06/29/23 02306/28/23 0152 06/27/23200506/27/23 0434 06/26/23 1658 06/26/23 0406 06/25/23 0150 NA 138 138 141 138 138 135 139 CL 105 105 106 105 104 104 102 CO2 22 21* 24 22 21* 19* 25 K 3.9 4.0 4.3 3.9 4.2 4.2 3.4* MAGNESIUM 0.92 0.93 -- 0.90 -- 0.96 0.99 PHOS 4.0 4.5 -- 4.7* -- 4.3 4.4 CALCIUM 9.1 9.0 9.3 9.1 9.1 9.6 9.4 BUN 21* 24* 24* 26* 24* 25* 20* CREATININE 1.17 1.21* 1.28* 1.22* 1.23* 1.24* 1.59* Coags No results for input(s): INR, PT, PTT, DDIMER in the last 168 hours. Cardiac Markers Recent Labs 06/24/23 0338 PROBNP 1,239* Endocrine Recent Labs 06/15/23 0428 04/18/23 0210 04/17/23 0333 02/08/23 2208 09/27/22 0307 TSH 2.98 -- 5.93* 4.00 -- HA1C -- 5.6 -- -- 5.6 No results for input(s): CHLPL, TRIG, HDL, LDLCHOL, CHOLHDL in the last 168 hours. Recent Labs 06/29/23 0239 06/28/23 0152 06/27/232005 GLUCOSE 100 101 94 Telemetry: I have personally reviewed and interpreted the telemetry from the last 24 hours. Resultsshow episodes of sinus morgan. Assessment: Loida Roque is a 53 y.o. 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 Tovar, paroxysmal A-fib (diagnosed on 10/20/2022), HFpEF, pulmonary emboli on Eliquis, and restrictive lung disease secondary to obesity who presented to OSH with chest pain. Patient has recently undergone extensive workup for ACS that has been unrevealing. 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 The patient current presentation is different with positive cardiac markers. Patient transferred to [facility] for further work-up and evaluation. On arrival, patient does appear to be volume overloaded. Cardiology consulted for MINOCA, and rec diuresis. Course c/b profound hypokalemia (K 2.9 on arrival) requiring aggressive repletion. Patient now diuresing well, with net negative 1L. Will aim for goal dry weight <220lbs. Given persistence of vague intermittent abd discomfort, will obtain CT AP w/ IV contrast to better assess for potential GI abnormalities. Plan: #NSTEMI, likely II #C/f MINOCA # Elevated troponins most likely demand. Underwent extensive cardia work last visit -ASA 81mg PO daily -continue Atorvastatin 40mg PO daily, -U tox - negative -Cardiology consulted -Imdur discontinued due to migraines - r/o arrhythmic contribution with zio on discharge -Toprol XL12.5 daily -ranolazine at 1000mg BD(Nomral Qtc ~450) #SMA artery stenosis - patient reporting longstanding intermittent LLQ pain. Sometimes located lower abd, sometimes epigastric. - simethicone PRN. Miralax daily and senakot BID ordered - KUB no revealing findings - CT A/P :Severe stenosis of the proximal SMA -duplex visceral arteries: Patent superior mesenteric artery with elevated velocities consistent with 50% or greater stenosis in the proximal segment. Patent proximal to mid celiac artery with no evidence of significant stenosis. - Vascular planning SMA stenting this week. #Decompensated HFpEF - HOLD home torsemide -IV lasix 40mg today #Bibasilar atelectasis #restrictive lung disease secondary to obesity CT A/P -Bibasilar groundglass opacities, favored atelectasis given dependent predilection, however, a superimposed infectious/inflammatory process or alveolar edema is not excluded. Afebrile , No White count , ABX not indicated at this time Incentive spirometer #pulmonary emboli on Eliquis #supraventricular tachycardia (AVNRT since 06/2021) #paroxysmal A-fib (diagnosed on 10/20/2022), Eliquis Last taken at 7 pm on 06/13/23 - switch to heparin on admission. Restart eliquis 06/15. #Migraines - continue home nurtec q48hr dose adjusted - migraine cocktail PRN Diet: Cardiac diet DVT Prophylaxis: DOAC Code status: Attempt Cardiopulmonary Resuscitation - Inpatient Disposition: Discharge Location: AM-PAC Basic Mobility Raw Score: 24 PT: OT: PCP JOCY Franco [phone] Terrence Keating MD 06/29/2023 * Jo Ann Sharpe - 06/29/2023 2:54 PM EDT Nutrition Services Note - Low Nutrition Acuity Loida Roque is a 53 y.o. female Reason for intervention: follow up Nutrition Plan: Continue current diet. Encourage good PO intake. Spironolactone noted. Abdominal pain after eating noted. Encouragement and support provided. Pt screened for follow-up visit and documentation writer met with Pt at bedside. Pt reported her appetite is okay and fluctuates between good and poor. When asked about food preferences, Pt stated due to her migraines she was choosing softer foods to eat, which has improved since admission. Pt reported she is able to eat and find foods to enjoy despite her abdominal pain. According to nutritional software, Pt ordered ~1,796 kcals/day and ~68 grams of Pro/day over the past 6 days. Per chart, Pt had variablePO intakes alternating between 0%/100% over the past week. Pt had no nutritional concerns or questions during visit. Nutrition services will continue to monitor and follow-up. Active Orders Diet Cardiac diet Frequency: Effective Now Number of Occurrences: Until Specified Admit Weight: 100.79 kg Estimated body mass index is 38.79 kg/m?? as calculated from the following: Height as of this encounter: 162.6 cm (5' 4). Weight as of this encounter: 102.5 kg (226 lb). Wt Readings from Last 5 Encounters: 06/29/23 102.5 kg (226 lb) 05/10/23 102.1 kg (225 lb) 04/22/23 98.5 kg (217 lb 1.6 oz) 04/19/23 97.2 kg (214 lb 4.6 oz) 04/01/23 102 kg (224 lb 12.8 oz) Weight loss: not clinically significant Appetite: Good (50%-75%) Food allergies:no known food allergies Chewing/Swallowing difficulty: none Nausea/Vomiting: nausea and no vomiting- nausea off and on, managing on own. Last Bowel Movement: 06/28/23 Patient education / questions: all nutrition related questions answered at this time Nutrition services to follow weekly through hospital course unless consulted in the interim. Jo Ann Sharpe Brass Finisher * Mary Castaneda RCP - 06/29/2023 3:55 AM EDT Respiratory Therapy NIV Note NIV Settings: NIV Mode: CPAP PEEP/CPAP (cm H2O): 12 cm H20 FiO2 (%): 21 % O2 Bleed In (LPM): 0 L/min NIV Measurements: Resp: 18 Mve: 8.1 Leak (L/min): 0 L/min Vte: 891 SpO2: 97 % Assessment: Patient complaint with CPAP overnight. Mary Castaneda RCP * Ailyn Irvin MD - 06/28/2023 1:53 PM EDT CV HOSPITALIST 2 - [facility] DAILY PROGRESS NOTE Page [phone] to reach a provider 28/09 Admit Date: 06/14/2023 Encounter Date June 28, 2023 Anticipated Discharge Date: 06/30/2023 Hospital Day: 14 Active Hospital Problems Diagnosis NSTEMI (non-ST elevated myocardial infarction) Resolved Hospital Problems No resolved problems to display. 24 Hour Events/Subjective: -NAEON -down trending weights and creatinine, appears euvolemic clinically , one more dose of lasix and transition to orals tomorrow -continues to have severe post prandial abdominal pain, percocet for pain , tentative plan for intervention this week , switched to heparin In anticipation for procedure Medications: Scheduled Meds: ranolazine ER 1,000 mg Oral BID apixaban 5 mg Oral BID lidocaine 1 patch Transdermal Q24H rimegepant 75 mg Oral Q48H metoprolol succinate XL 12.5 mg Oral Daily senna-docusate 2 tablet Oral BID polyethylene glycoL (MIRALAX) oral powder 17 g Oral Daily sertraline 25 mg Oral Daily amLODIPine 2.5 mg Oral Daily atorvastatin 40 mg Oral QPM DULoxetine DR 60 mg Oral Daily rOPINIRole 2 mg Oral BID gabapentin 600 mg Oral Nightly melatonin 6 mg Oral Nightly topiramate 100 mg Oral Nightly spironolactone 25 mg Oral Daily pantoprazole EC 40 mg Oral Daily sodium chloride 0.9 % (flush) 5 mL Intravenous BID aspirin EC 81 mg Oral Daily lidocaine 1 patch Transdermal Daily Continuous Infusions: PRN Meds:.nitroGLYcerin, simethicone, loratadine, sodium chloride 0.9 % (flush), lidocaine Objective: Last value Range last 24 hrs Temp: 36.6 ??C (97.8 ??F) Temp: [36.4 ??C (97.6 ??F)-36.6 ??C (97.8 ??F)] Heart Rate: (!) 47 Heart Rate: [44-58] BP: 102/60 BP: (89-107)/(46-70) Resp: 18 Resp: [13-18] SpO2: 100 % SpO2: [98 %-100 %] Height: 162.6 cm (5' 4) Weight: 102.1 kg (225 lb) BMI (Calculated): 38.14 BMI Classification: Obese Admit weight: 100.79 kg Patient Vitals for the past 168 hrs: Weight 06/28/23 0307 102.1 kg (225 lb) 06/27/23 0343 103.2 kg (227 lb 9.6 oz) 06/26/23 0145 102.3 kg (225 lb 9.6 oz) 06/25/23 0357 101.4 kg (223 lb 9.6 oz) 06/24/23 0600 103 kg (227 lb) 06/23/23 0340 102.1 kg (225 lb) 06/22/23 0353 102.1 kg (225 lb) Intake/Output Summary (Last 24 hours) at 06/28/2023 1353 Last data filed at 06/28/2023 1230 Gross per 24 hour Intake 641 ml Output 1050 ml Net -409 ml Physical Exam: Physical Exam Constitutional: Comments: Patient in mild distress in AM, improved to no distress after migraine cocktail HENT: Mouth/Throat: Mouth: Mucous membranes are moist. Eyes: Pupils: Pupils are equal, round, and reactive to light. Cardiovascular: Rate and Rhythm: Normal rate and regular rhythm. Pulmonary: Effort: Pulmonary effort is normal. Breath sounds: Normal breath sounds. Abdominal: General: There is no distension. Palpations: Abdomen is soft. Tenderness: There is abdominal tenderness. There is no guarding or rebound. Comments: Tenderness most pronounced epigastric deep palpation Musculoskeletal: Cervical back: Neck supple. No rigidity. Right lower leg: No edema. Left lower leg: No edema. Skin: General: Skin is warm and dry. Neurological: General: No focal deficit present. Mental Status: She is alert. Cranial Nerves: No cranial nerve deficit. Labs: Recent Labs 06/28/23 0152 06/27/23 0434 06/26/23 0406 06/25/23 0150 06/24/23 0338 WBC 8.1 7.6 8.4 7.2 6.9 HGB 13.4 12.9 14.0 14.4 13.6 HCT 40.6 39.0 43.6 42.9 40.7 PLATELET 238 245 258 241 220 MCV 94.4 94.0 96.5* 93.9 93.3 Recent Labs 06/28/23 0152 06/27/23 2006 06/27/23 0434 06/26/23 1658 06/26/23 0406 06/25/23 0150 06/24/23 0338 NA 138 141 138 138 135 139 138 CL 105 106 105 104 104 102 104 CO2 * 24 22 21* 19* 25 21* K 4.0 4.3 3.9 4.2 4.2 3.4* 4.2 MAGNESIUM 0.93 -- 0.90 -- 0.96 0.99 0.96 PHOS 4.5 -- 4.7* -- 4.3 4.4 4.1 CALCIUM 9.0 9.3 9.1 9.1 9.6 9.4 9.1 BUN 24* 24* 26* 24* 25* 20* 20* CREATININE 1.21* 1.28* 1.22* 1.23* 1.24* 1.59* 1.14 Coags No results for input(s): INR, PT, PTT, DDIMER in the last 168 hours. Cardiac Markers Recent Labs 06/24/23 0338 06/22/23 1438 06/22/23 1124 TROPONINTHS -- 22* 22* PROBNP 1,239* -- -- Endocrine Recent Labs 06/15/23 0428 04/18/23 0210 04/17/23 0333 02/08/23 2208 09/27/22 0307 TSH 2.98 -- 5.93* 4.00 -- HA1C -- 5.6 -- -- 5.6 No results for input(s): CHLPL, TRIG, HDL, LDLCHOL, CHOLHDL in the last 168 hours. Recent Labs 06/28/23 0152 06/27/23200506/27/23 0434 GLUCOSE 101 94 99 Telemetry: I have personally reviewed and interpreted the telemetry from the last 24 hours. Resultsshow sinus, HR 40s-50s at night, 50s-70s during the day, occasional PAC. Frequent movement artifact. Imaging: No results found for this visit on 06/14/23 (from the past 24 hour(s)). Assessment: Loida Roque is a 53 y.o. 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 Tovar, paroxysmal A-fib (diagnosed on 10/20/2022), HFpEF, pulmonary emboli on Eliquis, and restrictive lung disease secondary to obesity who presented to OSH with chest pain. Patient has recently undergone extensive workup for ACS that has been unrevealing. 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 The patient current presentation is different with positive cardiac markers. Patient transferred to [facility] for further work-up and evaluation. On arrival, patient does appear to be volume overloaded. Cardiology consulted for MINOCA, and rec diuresis. Course c/b profound hypokalemia (K 2.9 on arrival) requiring aggressive repletion. Patient now diuresing well, with net negative 1L. Will aim for goal dry weight <220lbs. Given persistence of vague intermittent abd discomfort, will obtain CT AP w/ IV contrast to better assess for potential GI abnormalities. Plan: #NSTEMI, likely II #C/f MINOCA # Elevated troponins most likely demand. Underwent extensive cardia work last visit -ASA 81mg PO daily -continue Atorvastatin 40mg PO daily, -U tox - negative -Cardiology consulted -Imdur discontinued due to migraines - r/o arrhythmic contribution with zio on discharge -Toprol XL12.5 daily -ranolazine at 1000mg BD(Nomral Qtc ~450) -IV lasix 40mg today #SMA artery stenosis - patient reporting longstanding intermittent LLQ pain. Sometimes located lower abd, sometimes epigastric. - simethicone PRN. Miralax daily and senakot BID ordered - KUB no revealing findings - CT A/P :Severe stenosis of the proximal SMA -Per vascular -since the pain is chronic, outpatient evaluation recommended. Reached out to vascular on 06/25 for worsening post prandial pain , pending recommendations -pending read for RUQ US. -duplex visceral arteries: Patent superior mesenteric artery with elevated velocities consistent with 50% or greater stenosis in the proximal segment. Patent proximal to mid celiac artery with no evidence of significant stenosis. #Decompensated HFpEF - HOLD home torsemide -IV lasix 40mg today #Bibasilar atelectasis #restrictive lung disease secondary to obesity CT A/P -Bibasilar groundglass opacities, favored atelectasis given dependent predilection, however, a superimposed infectious/inflammatory process or alveolar edema is not excluded. Afebrile , No White count , ABX not indicated at this time Incentive spirometer #pulmonary emboli on Eliquis #supraventricular tachycardia (AVNRT since 06/2021) #paroxysmal A-fib (diagnosed on 10/20/2022), Eliquis Last taken at 7 pm on 06/13/23 - switch to heparin on admission. Restart eliquis 06/15. #Migraines - continue home nurtec q48hr dose adjusted - migraine cocktail PRN Fluids: per migraine cocktail Electrolytes: replete as above Diet: Cardiac diet DVT Prophlaxis: eliquis Code status: Attempt Cardiopulmonary Resuscitation - Inpatient Disposition: Discharge Planning: AM-PAC Basic Mobility Raw Score: 24 PT: OT: PCP JOCY Franco [phone] * Ailyn Irvin MD - 06/27/2023 9:40 AM EDT [facility] - [facility] DAILY PROGRESS NOTE Page [phone] to reach a provider 28/09 Admit Date: 06/14/2023 Encounter Date June 27, 2023 Anticipated Discharge Date: 06/28/2023 Hospital Day: 13 Active Hospital Problems Diagnosis NSTEMI (non-ST elevated myocardial infarction) Resolved Hospital Problems No resolved problems to display. 24 Hour Events/Subjective: -NAEON -downtrending creatinine , patient feels her abdomen is still tight, up trending weight IV lasix 40mg today , Robust UO with IV lasix 40g yesterday -C/o severe post prandial abdominal pain, percocet for pain , reached out to vascular yesterday plan for vascaur IR guided stent iso worsening abdominal pain. -Ordered for RUQ US. Medications: Scheduled Meds: ranolazine ER 1,000 mg Oral BID apixaban 5 mg Oral BID lidocaine 1 patch Transdermal Q24H rimegepant 75 mg Oral Q48H metoprolol succinate XL 12.5 mg Oral Daily senna-docusate 2 tablet Oral BID polyethylene glycoL (MIRALAX) oral powder 17 g Oral Daily sertraline 25 mg Oral Daily amLODIPine 2.5 mg Oral Daily atorvastatin 40 mg Oral QPM DULoxetine DR 60 mg Oral Daily rOPINIRole 2 mg Oral BID gabapentin 600 mg Oral Nightly melatonin 6 mg Oral Nightly topiramate 100 mg Oral Nightly spironolactone 25 mg Oral Daily pantoprazole EC 40 mg Oral Daily sodium chloride 0.9 % (flush) 5 mL Intravenous BID aspirin EC 81 mg Oral Daily lidocaine 1 patch Transdermal Daily Continuous Infusions: PRN Meds:.nitroGLYcerin, simethicone, loratadine, sodium chloride 0.9 % (flush), lidocaine Objective: Last value Range last 24 hrs Temp: 36.5 ??C (97.7 ??F) Temp: [36.2 ??C (97.1 ??F)-36.7 ??C (98 ??F)] Heart Rate: (!) 43 Heart Rate: [43-64] BP: 99/64 BP: (94-126)/(56-76) Resp: 17 Resp: [16-18] SpO2: 99 % SpO2: [96 %-99 %] Height: 162.6 cm (5' 4) Weight: 103.2 kg (227 lb 9.6 oz) BMI (Calculated): 38.14 BMI Classification: Obese Admit weight: 100.79 kg Patient Vitals for the past 168 hrs: Weight 06/27/23 0343 103.2 kg (227 lb 9.6 oz) 06/26/23 0145 102.3 kg (225 lb 9.6 oz) 06/25/23 0357 101.4 kg (223 lb 9.6 oz) 06/24/23 0600 103 kg (227 lb) 06/23/23 0340 102.1 kg (225 lb) 06/22/23 0353 102.1 kg (225 lb) 06/21/23 0606 101.4 kg (223 lb 9.6 oz) Intake/Output Summary (Last 24 hours) at 06/27/2023 0940 Last data filed at 06/27/2023 0400 Gross per 24 hour Intake 305 ml Output 1850 ml Net -1545 ml Physical Exam: Physical Exam Constitutional: Comments: Patient in mild distress in AM, improved to no distress after migraine cocktail HENT: Mouth/Throat: Mouth: Mucous membranes are moist. Eyes: Pupils: Pupils are equal, round, and reactive to light. Cardiovascular: Rate and Rhythm: Normal rate and regular rhythm. Pulmonary: Effort: Pulmonary effort is normal. Breath sounds: Normal breath sounds. Abdominal: General: There is no distension. Palpations: Abdomen is soft. Tenderness: There is abdominal tenderness. There is no guarding or rebound. Comments: Tenderness most pronounced epigastric deep palpation Musculoskeletal: Cervical back: Neck supple. No rigidity. Right lower leg: No edema. Left lower leg: No edema. Skin: General: Skin is warm and dry. Neurological: General: No focal deficit present. Mental Status: She is alert. Cranial Nerves: No cranial nerve deficit. Labs: Recent Labs 06/27/23 0434 06/26/23 0406 06/25/23 0150 06/24/23 0338 06/23/23 0412 WBC 7.6 8.4 7.2 6.9 8.2 HGB 12.9 14.0 14.4 13.6 14.3 HCT 39.0 43.6 42.9 40.7 43.1 PLATELET 245 258 241 220 233 MCV 94.0 96.5* 93.9 93.3 93.9 Recent Labs 06/27/23 0434 06/26/23 1658 06/26/23 0406 06/25/23 0150 06/24/23 0338 06/23/23 0412 NA 138 138 135 139 138 137 CL 105 104 104 102 104 103 CO2 22 21* 19* 25 21* 22 K 3.9 4.2 4.2 3.4* 4.2 3.8 MAGNESIUM 0.90 -- 0.96 0.99 0.96 1.03 PHOS 4.7* -- 4.3 4.4 4.1 4.5 CALCIUM 9.1 9.1 9.6 9.4 9.1 9.3 BUN 26* 24* 25* 20* 20* 23* CREATININE 1.22* 1.23* 1.24* 1.59* 1.14 1.08 Coags No results for input(s): INR, PT, PTT, DDIMER in the last 168 hours. Cardiac Markers Recent Labs 06/24/23 0338 06/22/23 1438 06/22/23 1124 06/21/23 0945 06/21/23 0558 TROPONINTHS -- 22* 22* 22* -- PROBNP 1,239* -- -- -- 1,370* Endocrine Recent Labs 06/15/23 0428 04/18/23 0210 04/17/23 0333 02/08/23 2208 09/27/22 0307 TSH 2.98 -- 5.93* 4.00 -- HA1C -- 5.6 -- -- 5.6 No results for input(s): CHLPL, TRIG, HDL, LDLCHOL, CHOLHDL in the last 168 hours. Recent Labs 06/27/23 0434 06/26/23 1658 06/26/23 0406 GLUCOSE 99 106 100 Telemetry: I have personally reviewed and interpreted the telemetry from the last 24 hours. Resultsshow sinus, HR 40s-50s at night, 50s-70s during the day, occasional PAC. Frequent movement artifact. Imaging: No results found for this visit on 06/14/23 (from the past 24 hour(s)). Assessment: Loida Roque is a 53 y.o. 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 Tovar, paroxysmal A-fib (diagnosed on 10/20/2022), HFpEF, pulmonary emboli on Eliquis, and restrictive lung disease secondary to obesity who presented to OSH with chest pain. Patient has recently undergone extensive workup for ACS that has been unrevealing. 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 The patient current presentation is different with positive cardiac markers. Patient transferred to [facility] for further work-up and evaluation. On arrival, patient does appear to be volume overloaded. Cardiology consulted for MINOCA, and rec diuresis. Course c/b profound hypokalemia (K 2.9 on arrival) requiring aggressive repletion. Patient now diuresing well, with net negative 1L. Will aim for goal dry weight <220lbs. Given persistence of vague intermittent abd discomfort, will obtain CT AP w/ IV contrast to better assess for potential GI abnormalities. Plan: #NSTEMI, likely II #C/f MINOCA # Elevated troponins most likely demand. Underwent extensive cardia work last visit -ASA 81mg PO daily -continue Atorvastatin 40mg PO daily, -U tox - negative -Cardiology consulted -Imdur discontinued due to migraines - r/o arrhythmic contribution with zio on discharge -Toprol XL12.5 daily -ranolazine at 1000mg BD(Nomral Qtc ~450) #SMA artery stenosis - patient reporting longstanding intermittent LLQ pain. Sometimes located lower abd, sometimes epigastric. - simethicone PRN. Miralax daily and senakot BID ordered - KUB no revealing findings - CT A/P :Severe stenosis of the proximal SMA -Per vascular -since the pain is chronic, outpatient evaluation recommended. Reached out to vascular on 06/25 for worsening post prandial pain , pending recommendations #Decompensated HFpEF - HOLD home torsemide -IV lasix 40mg today #Bibasilar atelectasis #restrictive lung disease secondary to obesity CT A/P -Bibasilar groundglass opacities, favored atelectasis given dependent predilection, however, a superimposed infectious/inflammatory process or alveolar edema is not excluded. Afebrile , No White count , ABX not indicated at this time Incentive spirometer #pulmonary emboli on Eliquis #supraventricular tachycardia (AVNRT since 06/2021) #paroxysmal A-fib (diagnosed on 10/20/2022), Eliquis Last taken at 7 pm on 06/13/23 - switch to heparin on admission. Restart eliquis 06/15. #Migraines - continue home nurtec q48hr dose adjusted - migraine cocktail PRN Fluids: per migraine cocktail Electrolytes: replete as above Diet: Cardiac diet DVT Prophlaxis: eliquis Code status: Attempt Cardiopulmonary Resuscitation - Inpatient Disposition: Discharge Planning: AM-PAC Basic Mobility Raw Score: 24 PT: OT: PCP JOCY Franco [phone] * Ailyn Irvin MD - 06/26/2023 12:42 PM EDT [facility]ITAL[facility] 2 - [facility] DAILY PROGRESS NOTE Page [phone] to reach a provider 28/09 Admit Date: 06/14/2023 Encounter Date June 26, 2023 Anticipated Discharge Date: 06/28/2023 Hospital Day: 12 Active Hospital Problems Diagnosis NSTEMI (non-ST elevated myocardial infarction) Resolved Hospital Problems No resolved problems to display. 24 Hour Events/Subjective: -NAEON -downtrending creatinine , patient feels her abdomen is still tight, IV lasix 40mg today Medications: Scheduled Meds: ranolazine ER 1,000 mg Oral BID apixaban 5 mg Oral BID lidocaine 1 patch Transdermal Q24H rimegepant 75 mg Oral Q48H metoprolol succinate XL 12.5 mg Oral Daily senna-docusate 2 tablet Oral BID polyethylene glycoL (MIRALAX) oral powder 17 g Oral Daily sertraline 25 mg Oral Daily amLODIPine 2.5 mg Oral Daily atorvastatin 40 mg Oral QPM DULoxetine DR 60 mg Oral Daily rOPINIRole 2 mg Oral BID gabapentin 600 mg Oral Nightly melatonin 6 mg Oral Nightly topiramate 100 mg Oral Nightly spironolactone 25 mg Oral Daily pantoprazole EC 40 mg Oral Daily sodium chloride 0.9 % (flush) 5 mL Intravenous BID aspirin EC 81 mg Oral Daily lidocaine 1 patch Transdermal Daily Continuous Infusions: PRN Meds:.nitroGLYcerin, simethicone, loratadine, sodium chloride 0.9 % (flush), lidocaine Objective: Last value Range last 24 hrs Temp: 36.7 ??C (98 ??F) Temp: [36.5 ??C (97.7 ??F)-36.9 ??C (98.5 ??F)] Heart Rate: 64 Heart Rate: [50-64] BP: 126/76 BP: (99-126)/(45-76) Resp: 18 Resp: [15-18] SpO2: 98 % SpO2: [97 %-100 %] Height: 162.6 cm (5' 4) Weight: 102.3 kg (225 lb 9.6 oz) BMI (Calculated): 38.14 BMI Classification: Obese Admit weight: 100.79 kg Patient Vitals for the past 168 hrs: Weight 06/26/23 0145 102.3 kg (225 lb 9.6 oz) 06/25/23 0357 101.4 kg (223 lb 9.6 oz) 06/24/23 0600 103 kg (227 lb) 06/23/23 0340 102.1 kg (225 lb) 06/22/23 0353 102.1 kg (225 lb) 06/21/23 0606 101.4 kg (223 lb 9.6 oz) 06/20/23 0333 101.2 kg (223 lb) Intake/Output Summary (Last 24 hours) at 06/26/2023 1242 Last data filed at 06/26/2023 1200 Gross per 24 hour Intake 505 ml Output 1850 ml Net -1345 ml Physical Exam: Physical Exam Constitutional: Comments: Patient in mild distress in AM, improved to no distress after migraine cocktail HENT: Mouth/Throat: Mouth: Mucous membranes are moist. Eyes: Pupils: Pupils are equal, round, and reactive to light. Cardiovascular: Rate and Rhythm: Normal rate and regular rhythm. Pulmonary: Effort: Pulmonary effort is normal. Breath sounds: Normal breath sounds. Abdominal: General: There is no distension. Palpations: Abdomen is soft. Tenderness: There is abdominal tenderness. There is no guarding or rebound. Comments: Tenderness most pronounced epigastric deep palpation Musculoskeletal: Cervical back: Neck supple. No rigidity. Right lower leg: No edema. Left lower leg: No edema. Skin: General: Skin is warm and dry. Neurological: General: No focal deficit present. Mental Status: She is alert. Cranial Nerves: No cranial nerve deficit. Labs: Recent Labs 06/26/23 0406 06/25/23 0150 06/24/23 0338 06/23/23 0412 06/22/23 0434 WBC 8.4 7.2 6.9 8.2 7.5 HGB 14.0 14.4 13.6 14.3 12.8 HCT 43.6 42.9 40.7 43.1 39.1 PLATELET 258 241 220 233 225 MCV 96.5* 93.9 93.3 93.9 96.8* Recent Labs 06/26/23 0406 06/25/23 0150 06/24/23 0338 06/23/23 0412 06/22/23 0434 NA 135 139 138 137 138 CL 104 102 104 103 102 CO2 19* 25 21* 22 19* K 4.2 3.4* 4.2 3.8 3.9 MAGNESIUM 0.96 0.99 0.96 1.03 1.02 PHOS 4.3 4.4 4.1 4.5 4.9* CALCIUM 9.6 9.4 9.1 9.3 9.4 BUN 25* 20* 20* 23* 22* CREATININE 1.24* 1.59* 1.14 1.08 1.19 Coags No results for input(s): INR, PT, PTT, DDIMER in the last 168 hours. Cardiac Markers Recent Labs 06/24/23 0338 06/22/23 1438 06/22/23 1124 06/21/23 0945 06/21/23 0558 TROPONINTHS -- 22* 22* 22* -- PROBNP 1,239* -- -- -- 1,370* Endocrine Recent Labs 06/15/23 0428 04/18/23 0210 04/17/23 0333 02/08/23 2208 09/27/22 0307 TSH 2.98 -- 5.93* 4.00 -- HA1C -- 5.6 -- -- 5.6 No results for input(s): CHLPL, TRIG, HDL, LDLCHOL, CHOLHDL in the last 168 hours. Recent Labs 06/26/23 0406 06/25/23 0150 06/24/23 0338 GLUCOSE 100 99 96 Telemetry: I have personally reviewed and interpreted the telemetry from the last 24 hours. Resultsshow sinus, HR 40s-50s at night, 50s-70s during the day, occasional PAC. Frequent movement artifact. Imaging: No results found for this visit on 06/14/23 (from the past 24 hour(s)). Assessment: Loida Roque is a 53 y.o. 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 Tovar, paroxysmal A-fib (diagnosed on 10/20/2022), HFpEF, pulmonary emboli on Eliquis, and restrictive lung disease secondary to obesity who presented to OSH with chest pain. Patient has recently undergone extensive workup for ACS that has been unrevealing. 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 The patient current presentation is different with positive cardiac markers. Patient transferred to [facility] for further work-up and evaluation. On arrival, patient does appear to be volume overloaded. Cardiology consulted for MINOCA, and rec diuresis. Course c/b profound hypokalemia (K 2.9 on arrival) requiring aggressive repletion. Patient now diuresing well, with net negative 1L. Will aim for goal dry weight <220lbs. Given persistence of vague intermittent abd discomfort, will obtain CT AP w/ IV contrast to better assess for potential GI abnormalities. Plan: #NSTEMI, likely II #C/f MINOCA # Elevated troponins most likely demand. -ASA 81mg PO daily -continue Atorvastatin 40mg PO daily, -U tox - negative -Cardiology consulted -Imdur discontinued due to migraines - r/o arrhythmic contribution with zio on discharge -Toprol XL12.5 daily -ranolazine at 1000mg BD(Nomral Qtc ~450) #Abd Discomfort/Bloating #SMA artery stenosis - patient reporting longstanding intermittent LLQ pain. Sometimes located lower abd, sometimes epigastric. - simethicone PRN. Miralax daily and senakot BID ordered - KUB no revealing findings - CT A/P :Severe stenosis of the proximal SMA -Per vascular -since the pain is chronic, outpatient evaluation recommended. #Decompensated HFpEF - HOLD home torsemide -hold diuresis today #Bibasilar atelectasis #restrictive lung disease secondary to obesity CT A/P -Bibasilar groundglass opacities, favored atelectasis given dependent predilection, however, a superimposed infectious/inflammatory process or alveolar edema is not excluded. Afebrile , No White count , ABX not indicated at this time Incentive spirometer #pulmonary emboli on Eliquis #supraventricular tachycardia (AVNRT since 06/2021) #paroxysmal A-fib (diagnosed on 10/20/2022), Eliquis Last taken at 7 pm on 06/13/23 - switch to heparin on admission. Restart eliquis 06/15. #Migraines - continue home nurtec q48hr dose adjusted - migraine cocktail PRN Fluids: per migraine cocktail Electrolytes: replete as above Diet: Cardiac diet DVT Prophlaxis: eliquis Code status: Attempt Cardiopulmonary Resuscitation - Inpatient Disposition: Discharge Planning: AM-PAC Basic Mobility Raw Score: 24 PT: OT: PCP JOCY Franco [phone] * Mitali Manuel [facility] - 06/26/2023 5:43 AM EDT Respiratory Therapy NIV Note NIV Settings: NIV Mode: CPAP PEEP/CPAP (cm H2O): 12 cm H20 FiO2 (%): 21 % O2 Bleed In (LPM): 0 L/min NIV Measurements: Resp: 17 Mve: 6.5 Leak (L/min): 28 L/min Vte: 392 SpO2: 99 % Skin Assessment: NIV Skin Assessment WDL: WDL Mepilex Applied: No Nares Assessment WDL: WDL Assessment: Wore NIV for a couple hours tonight Plan: Continue Noc. NIV Mitali Manuel RCP * Ailyn Irvin MD - 06/25/2023 1:39 PM EDT [facility]PITALIST 2 - [facility] DAILY PROGRESS NOTE Page [phone] to reach a provider 28/09 Admit Date: 06/14/2023 Encounter Date June 25, 2023 Anticipated Discharge Date: 06/28/2023 Hospital Day: 11 Active Hospital Problems Diagnosis NSTEMI (non-ST elevated myocardial infarction) Resolved Hospital Problems No resolved problems to display. 24 Hour Events/Subjective: -NAEON -net negative of 1.7 liters with patient, with lasix IV BD 40/60 yesterday , creat at 1.5, appears euvolemic -will hold of diuresis today -down trending weights Medications: Scheduled Meds: ranolazine ER 1,000 mg Oral BID apixaban 5 mg Oral BID lidocaine 1 patch Transdermal Q24H rimegepant 75 mg Oral Q48H metoprolol succinate XL 12.5 mg Oral Daily senna-docusate 2 tablet Oral BID polyethylene glycoL (MIRALAX) oral powder 17 g Oral Daily sertraline 25 mg Oral Daily amLODIPine 2.5 mg Oral Daily atorvastatin 40 mg Oral QPM D[address] 60 mg Oral Daily rOPINIRole 2 mg Oral BID gabapentin 600 mg Oral Nightly melatonin 6 mg Oral Nightly topiramate 100 mg Oral Nightly spironolactone 25 mg Oral Daily pantoprazole EC 40 mg Oral Daily sodium chloride 0.9 % (flush) 5 mL Intravenous BID aspirin EC 81 mg Oral Daily lidocaine 1 patch Transdermal Daily Continuous Infusions: PRN Meds:.nitroGLYcerin, simethicone, loratadine, sodium chloride 0.9 % (flush), lidocaine Objective: Last value Range last 24 hrs Temp: 36.6 ??C (97.8 ??F) Temp: [36.4 ??C (97.6 ??F)-36.6 ??C (97.8 ??F)] Heart Rate: 60 Heart Rate: [45-64] BP: 110/56 BP: (97-112)/(48-61) Resp: 18 Resp: [16-23] SpO2: 98 % SpO2: [96 %-100 %] Height: 162.6 cm (5' 4) Weight: 101.4 kg (223 lb 9.6 oz) BMI (Calculated): 38.14 BMI Classification: Obese Admit weight: 100.79 kg Patient Vitals for the past 168 hrs: Weight 06/25/23 0357 101.4 kg (223 lb 9.6 oz) 06/24/23 0600 103 kg (227 lb) 06/23/23 0340 102.1 kg (225 lb) 06/22/23 0353 102.1 kg (225 lb) 06/21/23 0606 101.4 kg (223 lb 9.6 oz) 06/20/23 0333 101.2 kg (223 lb) 06/19/23 0327 101.2 kg (223 lb 3.2 oz) Intake/Output Summary (Last 24 hours) at 06/25/2023 1339 Last data filed at 06/25/2023 0830 Gross per 24 hour Intake 480 ml Output 1500 ml Net -1020 ml Physical Exam: Physical Exam Constitutional: Comments: Patient in mild distress in AM, improved to no distress after migraine cocktail HENT: Mouth/Throat: Mouth: Mucous membranes are moist. Eyes: Pupils: Pupils are equal, round, and reactive to light. Cardiovascular: Rate and Rhythm: Normal rate and regular rhythm. Pulmonary: Effort: Pulmonary effort is normal. Breath sounds: Normal breath sounds. Abdominal: General: There is no distension. Palpations: Abdomen is soft. Tenderness: There is abdominal tenderness. There is no guarding or rebound. Comments: Tenderness most pronounced epigastric deep palpation Musculoskeletal: Cervical back: Neck supple. No rigidity. Right lower leg: No edema. Left lower leg: No edema. Skin: General: Skin is warm and dry. Neurological: General: No focal deficit present. Mental Status: She is alert. Cranial Nerves: No cranial nerve deficit. Labs: Recent Labs 06/25/23 0150 06/24/23 0338 06/23/23 0412 06/22/23 0434 06/21/23 0325 WBC 7.2 6.9 8.2 7.5 9.3 HGB 14.4 13.6 14.3 12.8 14.9 HCT 42.9 40.7 43.1 39.1 44.2 PLATELET 241 220 233 225 279 MCV 93.9 93.3 93.9 96.8* 93.2 Recent Labs 06/25/23 0150 06/24/23 0338 06/23/23 0412 06/22/23 0434 06/21/23 0558 06/21/23 0325 NA 139 138 137 138 -- 138 CL 102 104 103 102 -- 100 CO2 25 21* 22 19* -- 26 K 3.4* 4.2 3.8 3.9 4.0 Not Perf MAGNESIUM 0.99 0.96 1.03 1.02 -- 1.04 PHOS 4.4 4.1 4.5 4.9* -- 5.1* CALCIUM 9.4 9.1 9.3 9.4 -- 9.7 BUN 20* 20* 23* 22* -- 27* CREATININE 1.59* 1.14 1.08 1.19 -- 1.11 Coags No results for input(s): INR, PT, PTT, DDIMER in the last 168 hours. Cardiac Markers Recent Labs 06/24/23 0338 06/22/23 1438 06/22/23 1124 06/21/23 0945 06/21/23 0558 TROPONINTHS -- 22* 22* 22* -- PROBNP 1,239* -- -- -- 1,370* Endocrine Recent Labs 06/15/23 0428 04/18/23 0210 04/17/23 0333 02/08/23 2208 09/27/22 0307 TSH 2.98 -- 5.93* 4.00 -- HA1C -- 5.6 -- -- 5.6 No results for input(s): CHLPL, TRIG, HDL, LDLCHOL, CHOLHDL in the last 168 hours. Recent Labs 06/25/23 0150 06/24/23 0338 06/23/23 0412 GLUCOSE 99 96 87 Telemetry: I have personally reviewed and interpreted the telemetry from the last 24 hours. Resultsshow sinus, HR 40s-50s at night, 50s-70s during the day, occasional PAC. Frequent movement artifact. Imaging: No results found for this visit on 06/14/23 (from the past 24 hour(s)). Assessment: Loida Roque is a 53 y.o. 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 Tovar, paroxysmal A-fib (diagnosed on 10/20/2022), HFpEF, pulmonary emboli on Eliquis, and restrictive lung disease secondary to obesity who presented to OSH with chest pain. Patient has recently undergone extensive workup for ACS that has been unrevealing. 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 The patient current presentation is different with positive cardiac markers. Patient transferred to [facility] for further work-up and evaluation. On arrival, patient does appear to be volume overloaded. Cardiology consulted for MINOCA, and rec diuresis. Course c/b profound hypokalemia (K 2.9 on arrival) requiring aggressive repletion. Patient now diuresing well, with net negative 1L. Will aim for goal dry weight <220lbs. Given persistence of vague intermittent abd discomfort, will obtain CT AP w/ IV contrast to better assess for potential GI abnormalities. Plan: #NSTEMI, likely II #C/f MINOCA # Elevated troponins most likely demand. -ASA 81mg PO daily -continue Atorvastatin 40mg PO daily, -U tox - negative -Cardiology consulted -Imdur discontinued due to migraines - r/o arrhythmic contribution with zio on discharge -Toprol XL12.5 daily -initiated ranolazine per cards. #Abd Discomfort/Bloating #SMA artery stenosis - patient reporting longstanding intermittent LLQ pain. Sometimes located lower abd, sometimes epigastric. - simethicone PRN. Miralax daily and senakot BID ordered - KUB no revealing findings - CT A/P :Severe stenosis of the proximal SMA -Per vascular -since the pain is chronic, outpatient evaluation recommended. #Decompensated HFpEF - HOLD home torsemide -hold diuresis today #Bibasilar atelectasis #restrictive lung disease secondary to obesity CT A/P -Bibasilar groundglass opacities, favored atelectasis given dependent predilection, however, a superimposed infectious/inflammatory process or alveolar edema is not excluded. Afebrile , No White count , ABX not indicated at this time Incentive spirometer #pulmonary emboli on Eliquis #supraventricular tachycardia (AVNRT since 06/2021) #paroxysmal A-fib (diagnosed on 10/20/2022), Eliquis Last taken at 7 pm on 06/13/23 - switch to heparin on admission. Restart eliquis 06/15. #Migraines - continue home nurtec q48hr dose adjusted - migraine cocktail PRN Fluids: per migraine cocktail Electrolytes: replete as above Diet: Cardiac diet DVT Prophlaxis: eliquis Code status: Attempt Cardiopulmonary Resuscitation - Inpatient Disposition: Discharge Planning: AM-PAC Basic Mobility Raw Score: 24 PT: OT: PCP JOCY Franco [phone] * Edith Chandler RCP - 06/24/2023 10:40 PM EDT Respiratory Therapy NIV Note NIV Settings: NIV Mode: CPAP PEEP/CPAP (cm H2O): 12 cm H20 FiO2 (%): 21 % O2 Bleed In (LPM): 0 L/min NIV Measurements: Resp: 18 Mve: 7.7 Leak (L/min): 2 L/min Vte: 396 SpO2: 97 % Assessment: Received Pt on RA. Pt tolerating well with Spo2 >92%. Transferred Pt to V60 on CPAP 12. Pt tolerating well. Pt remained on CPAP 12 overnight. Plan to return Pt to RA when awake. Will continue to monitor and support as tolerated. Edith Chandler RCP * Ailyn Irvin MD - 06/24/2023 4:38 PM EDT [facility]PITALIST 2 - [facility] DAILY PROGRESS NOTE Page [phone] to reach a provider 28/09 Admit Date: 06/14/2023 Encounter Date June 24, 2023 Anticipated Discharge Date: 06/26/2023 Hospital Day: 10 Active Hospital Problems Diagnosis NSTEMI (non-ST elevated myocardial infarction) Resolved Hospital Problems No resolved problems to display. 24 Hour Events/Subjective: -NAEON -Complains of mild epigastric pain and very vague abdominal pain, since her abdominal pain is chronic vascular surgery recommended outpatient evaluation and management for her SMA stenosis. -IV Lasix 1 dose this a.m, up trending weight,will do BD dosing -Switch to Eliquis tonmarsha. Medications: Scheduled Meds: lidocaine 1 patch Transdermal Q24H rimegepant 75 mg Oral Q48H ranolazine ER 500 mg Oral BID metoprolol succinate XL 12.5 mg Oral Daily senna-docusate 2 tablet Oral BID polyethylene glycoL (MIRALAX) oral powder 17 g Oral Daily sertraline 25 mg Oral Daily amLODIPine 2.5 mg Oral Daily atorvastatin 40 mg Oral QPM DULoxetine DR 60 mg Oral Daily rOPINIRole 2 mg Oral BID gabapentin 600 mg Oral Nightly melatonin 6 mg Oral Nightly topiramate 100 mg Oral Nightly spironolactone 25 mg Oral Daily pantoprazole EC 40 mg Oral Daily sodium chloride 0.9 % (flush) 5 mL Intravenous BID aspirin EC 81 mg Oral Daily lidocaine 1 patch Transdermal Daily Continuous Infusions: heparin (porcine) infusion 500 Units/hr (06/24/23 0515) PRN Meds:.nitroGLYcerin, heparin (porcine) infusion AND heparin (porcine), simethicone, loratadine, sodium chloride 0.9 % (flush), lidocaine Objective: Last value Range last 24 hrs Temp: 36.4 ??C (97.6 ??F) Temp: [36.3 ??C (97.4 ??F)-36.6 ??C (97.9 ??F)] Heart Rate: 64 Heart Rate: [47-64] BP: 112/61 BP: (100-113)/(51-77) Resp: 18 Resp: [16-18] SpO2: 99 % SpO2: [97 %-100 %] Height: 162.6 cm (5' 4) Weight: 103 kg (227 lb) BMI (Calculated): 38.14 BMI Classification: Obese Admit weight: 100.79 kg Patient Vitals for the past 168 hrs: Weight 06/24/23 0600 103 kg (227 lb) 06/23/23 0340 102.1 kg (225 lb) 06/22/23 0353 102.1 kg (225 lb) 06/21/23 0606 101.4 kg (223 lb 9.6 oz) 06/20/23 0333 101.2 kg (223 lb) 06/19/23 0327 101.2 kg (223 lb 3.2 oz) 06/18/23 0326 101.4 kg (223 lb 9.6 oz) Intake/Output Summary (Last 24 hours) at 06/24/2023 1638 Last data filed at 06/24/2023 1102 Gross per 24 hour Intake 780 ml Output 2950 ml Net -2170 ml Physical Exam: Physical Exam Constitutional: Comments: Patient in mild distress in AM, improved to no distress after migraine cocktail HENT: Mouth/Throat: Mouth: Mucous membranes are moist. Eyes: Pupils: Pupils are equal, round, and reactive to light. Cardiovascular: Rate and Rhythm: Normal rate and regular rhythm. Pulmonary: Effort: Pulmonary effort is normal. Breath sounds: Normal breath sounds. Abdominal: General: There is no distension. Palpations: Abdomen is soft. Tenderness: There is abdominal tenderness. There is no guarding or rebound. Comments: Tenderness most pronounced epigastric deep palpation Musculoskeletal: Cervical back: Neck supple. No rigidity. Right lower leg: No edema. Left lower leg: No edema. Skin: General: Skin is warm and dry. Neurological: General: No focal deficit present. Mental Status: She is alert. Cranial Nerves: No cranial nerve deficit. Labs: Recent Labs 06/24/23 0338 06/23/232 06/22/23 0434 06/21/23 0325 06/20/23 033 WBC 6.9 8.2 7.5 9.3 10.1* HGB 13.6 14.3 12.8 14.9 14.2 HCT 40.7 43.1 39.1 44.2 41.5 PLATELET 220 233 225 279 253 MCV 93.3 93.9 96.8* 93.2 90.8 Recent Labs 06/24/23 0338 06/23/23 0412 06/22/23 0434 06/21/23 0558 06/21/23 0325 06/20/23 033 NA 138 137 138 -- 138 137 CL 104 103 102 -- 100 102 CO2 21* 22 19* -- 26 22 K 4.2 3.8 3.9 4.0 Not Perf 3.7 MAGNESIUM 0.96 1.03 1.02 -- 1.04 1.00 PHOS 4.1 4.5 4.9* -- 5.1* 4.3 CALCIUM 9.1 9.3 9.4 -- 9.7 9.4 BUN 20* 23* 22* -- 27* 26* CREATININE 1.14 1.08 1.19 -- 1.11 1.12 Coags No results for input(s): INR, PT, PTT, DDIMER in the last 168 hours. Cardiac Markers Recent Labs 06/22/23 1438 06/22/23 1124 06/21/23 0945 06/21/23 0558 TROPONINTHS 22* 22* 22* -- PROBNP -- -- -- 1,370* Endocrine Recent Labs 06/15/23 0428 04/18/23 0210 04/17/23 0333 02/08/23 2208 09/27/22 0307 TSH 2.98 -- 5.93* 4.00 -- HA1C -- 5.6 -- -- 5.6 No results for input(s): CHLPL, TRIG, HDL, LDLCHOL, CHOLHDL in the last 168 hours. Recent Labs 06/24/23 0338 06/23/23 0412 06/22/23 0434 GLUCOSE 96 87 94 Telemetry: I have personally reviewed and interpreted the telemetry from the last 24 hours. Resultsshow sinus, HR 40s-50s at night, 50s-70s during the day, occasional PAC. Frequent movement artifact. Imaging: No results found for this visit on 06/14/23 (from the past 24 hour(s)). Assessment: Loida Roque is a 53 y.o. 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 Tovar, paroxysmal A-fib (diagnosed on 10/20/2022), HFpEF, pulmonary emboli on Eliquis, and restrictive lung disease secondary to obesity who presented to OSH with chest pain. Patient has recently undergone extensive workup for ACS that has been unrevealing. 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 The patient current presentation is different with positive cardiac markers. Patient transferred to [facility] for further work-up and evaluation. On arrival, patient does appear to be volume overloaded. Cardiology consulted for MINOCA, and rec diuresis. Course c/b profound hypokalemia (K 2.9 on arrival) requiring aggressive repletion. Patient now diuresing well, with net negative 1L. Will aim for goal dry weight <220lbs. Given persistence of vague intermittent abd discomfort, will obtain CT AP w/ IV contrast to better assess for potential GI abnormalities. Plan: #NSTEMI, likely II #C/f MINOCA # Elevated troponins most likely demand. -ASA 81mg PO daily -continue Atorvastatin 40mg PO daily, - Utox - negative - Cardiology consulted - IV diuresis -Imdur discontinued due to migraines - r/o arrhythmic contribution with zio on discharge -Toprol XL12.5 daily -initiated ranolazine per cards. #Abd Discomfort/Bloating #SMA artery stenosis - patient reporting longstanding intermittent LLQ pain. Sometimes located lower abd, sometimes epigastric. - simethicone PRN. Miralax daily and senakot BID ordered - KUB no revealing findings - CT A/P :Severe stenosis of the proximal SMA -Per vascular -since the pain is chronic, outpatient evaluation recommended. #Decompensated HFpEF - HOLD home torsemide -IV lasix today #Bibasilar atelectasis #restrictive lung disease secondary to obesity CT A/P -Bibasilar groundglass opacities, favored atelectasis given dependent predilection, however, a superimposed infectious/inflammatory process or alveolar edema is not excluded. Afebrile , No White count , ABX not indicated at this time Incentive spirometer #pulmonary emboli on Eliquis #supraventricular tachycardia (AVNRT since 06/2021) #paroxysmal A-fib (diagnosed on 10/20/2022), Eliquis Last taken at 7 pm on 06/13/23 - switch to heparin on admission. Restart eliquis 06/15. #Migraines - continue home nurtec q48hr dose adjusted - migraine cocktail PRN Fluids: per migraine cocktail Electrolytes: replete as above Diet: Cardiac diet DVT Prophlaxis: eliquis Code status: Attempt Cardiopulmonary Resuscitation - Inpatient Disposition: Discharge Planning: AM-PAC Basic Mobility Raw Score: 24 PT: OT: PCP JOCY Franco [phone] * Aaron Rosado RCP - 06/24/2023 1:55 AM EDT Respiratory Therapy NIV Note NIV Settings: NIV Mode: CPAP PEEP/CPAP (cm H2O): 12 cm H20 FiO2 (%): 21 % O2 Bleed In (LPM): 0 L/min NIV Measurements: Resp: 18 Mve: 7.7 Leak (L/min): 2 L/min Vte: 396 SpO2: 100 % Skin Assessment: NIV Skin Assessment WDL: WDL Mepilex Applied: No Nares Assessment WDL: WDL Assessment: Pt seen for use of NIV. Pt wearing the NIV the majority of the night. Requested to go on ~ 2230 Plan: Pt tolerating this well, support as needed for rest and HS. Aaron Rosado RCP * Ailyn Irvin MD - 06/23/2023 1:03 PM EDT CV HOSPITALIST 2 - [facility] DAILY PROGRESS NOTE Page [phone] to reach a provider 28/09 Admit Date: 06/14/2023 Encounter Date June 23, 2023 Anticipated Discharge Date: 06/25/2023 Hospital Day: 9 Active Hospital Problems Diagnosis NSTEMI (non-ST elevated myocardial infarction) Resolved Hospital Problems No resolved problems to display. 24 Hour Events/Subjective: -NAEON -initiated ranolazine yesterday (adjusted her nurtec dosing to Q48hr ) -Noted to be Bradycardic -40's sinus (chronic) and Hypotensive in HR 80's /60's with MAP >65 , repeat Bp at 100/60;s asymptomatic , -Appreciate vascular reccs, plan for inpatient stent once cleared by cardiology versus outpatient -Switched to heparin last night anticipating procedure -appears euvolemic -Holding diuresis ISO soft blood pressures Medications: Scheduled Meds: lidocaine 1 patch Transdermal Q24H rimegepant 75 mg Oral Q48H ranolazine ER 500 mg Oral BID metoprolol succinate XL 12.5 mg Oral Daily senna-docusate 2 tablet Oral BID polyethylene glycoL (MIRALAX) oral powder 17 g Oral Daily sertraline 25 mg Oral Daily amLODIPine 2.5 mg Oral Daily atorvastatin 40 mg Oral QPM DUL[address] 60 mg Oral Daily rOPINIRole 2 mg Oral BID gabapentin 600 mg Oral Nightly melatonin 6 mg Oral Nightly topiramate 100 mg Oral Nightly spironolactone 25 mg Oral Daily pantoprazole EC 40 mg Oral Daily sodium chloride 0.9 % (flush) 5 mL Intravenous BID aspirin EC 81 mg Oral Daily lidocaine 1 patch Transdermal Daily Continuous Infusions: heparin (porcine) infusion 700 Units/hr (06/23/23 0641) PRN Meds:.nitroGLYcerin, heparin (porcine) infusion AND heparin (porcine), simethicone, loratadine, sodium chloride 0.9 % (flush), lidocaine Objective: Last value Range last 24 hrs Temp: 36.7 ??C (98.1 ??F) Temp: [36.6 ??C (97.9 ??F)-36.7 ??C (98.1 ??F)] Heart Rate: 56 Heart Rate: [44-58] BP: 111/63 BP: (89-113)/(49-63) Resp: 16 Resp: [15-18] SpO2: 100 % SpO2: [94 %-100 %] Height: 162.6 cm (5' 4) Weight: 102.1 kg (225 lb) BMI (Calculated): 38.14 BMI Classification: Obese Admit weight: 100.79 kg Patient Vitals for the past 168 hrs: Weight 06/23/23 0340 102.1 kg (225 lb) 06/22/23 0353 102.1 kg (225 lb) 06/21/23 0606 101.4 kg (223 lb 9.6 oz) 06/20/23 0333 101.2 kg (223 lb) 06/19/23 0327 101.2 kg (223 lb 3.2 oz) 06/18/23 0326 101.4 kg (223 lb 9.6 oz) 06/17/23 0449 101.1 kg (222 lb 12.8 oz) Intake/Output Summary (Last 24 hours) at 06/23/2023 1303 Last data filed at 06/23/2023 1139 Gross per 24 hour Intake 1100 ml Output 1900 ml Net -800 ml Physical Exam: Physical Exam Constitutional: Comments: Patient in mild distress in AM, improved to no distress after migraine cocktail HENT: Mouth/Throat: Mouth: Mucous membranes are moist. Eyes: Pupils: Pupils are equal, round, and reactive to light. Cardiovascular: Rate and Rhythm: Normal rate and regular rhythm. Pulmonary: Effort: Pulmonary effort is normal. Breath sounds: Normal breath sounds. Abdominal: General: There is no distension. Palpations: Abdomen is soft. Tenderness: There is abdominal tenderness. There is no guarding or rebound. Comments: Tenderness most pronounced epigastric deep palpation Musculoskeletal: Cervical back: Neck supple. No rigidity. Right lower leg: No edema. Left lower leg: No edema. Skin: General: Skin is warm and dry. Neurological: General: No focal deficit present. Mental Status: She is alert. Cranial Nerves: No cranial nerve deficit. Labs: Recent Labs 06/23/2341106/22/2343306/21/2332406/20/2333106/19/23 032 WBC 8.2 7.5 9.3 10.1* 9.4 HGB 14.3 12.8 14.9 14.2 13.9 HCT 43.1 39.1 44.2 41.5 41.7 PLATELET 233 225 279 253 244 MCV 93.9 96.8* 93.2 90.8 93.1 Recent Labs 06/23/23 0412 06/22/23 0434 06/21/23 0558 06/21/2332406/20/2333106/19/23 1726 NA 137 138 -- 138 137 139 CL 103 102 -- 100 102 103 CO2 22 19* -- 26 22 22 K 3.8 3.9 4.0 Not Perf 3.7 3.9 MAGNESIUM 1.03 1.02 -- 1.04 1.00 0.98 PHOS 4.5 4.9* -- 5.1* 4.3 4.0 CALCIUM 9.3 9.4 -- 9.7 9.4 9.5 BUN 23* 22* -- 27* 26* 21* CREATININE 1.08 1.19 -- 1.11 1.12 1.06 Coags No results for input(s): INR, PT, PTT, DDIMER in the last 168 hours. Cardiac Markers Recent Labs 06/22/23 1438 06/22/23 1124 06/21/23 0945 06/21/23 0558 TROPONINTHS 22* 22* 22* -- PROBNP -- -- -- 1,370* Endocrine Recent Labs 06/15/23 0428 04/18/23 0210 04/17/23 0333 02/08/23 2208 09/27/22 0307 TSH 2.98 -- 5.93* 4.00 -- HA1C -- 5.6 -- -- 5.6 No results for input(s): CHLPL, TRIG, HDL, LDLCHOL, CHOLHDL in the last 168 hours. Recent Labs 06/23/23 0412 06/22/23 0434 06/21/23 0325 GLUCOSE 87 94 95 Telemetry: I have personally reviewed and interpreted the telemetry from the last 24 hours. Resultsshow sinus, HR 40s-50s at night, 50s-70s during the day, occasional PAC. Frequent movement artifact. Imaging: No results found for this visit on 06/14/23 (from the past 24 hour(s)). Assessment: Loida Roque is a 53 y.o. 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 Tovar, paroxysmal A-fib (diagnosed on 10/20/2022), HFpEF, pulmonary emboli on Eliquis, and restrictive lung disease secondary to obesity who presented to OSH with chest pain. Patient has recently undergone extensive workup for ACS that has been unrevealing. ESTER is suspected as the culprit. The patient current presentation is different with positive cardiac markers. Patient transferred to [facility] for further work-up and evaluation. On arrival, patient does appear to be volume overloaded. Cardiology consulted for MINOCA, and rec diuresis. Course c/b profound hypokalemia (K 2.9 on arrival) requiring aggressive repletion. Patient now diuresing well, with net negative 1L. Will aim for goal dry weight <220lbs. Given persistence of vague intermittent abd discomfort, will obtain CT AP w/ IV contrast to better assess for potential GI abnormalities. Plan: #NSTEMI, likely type I versus II #C/f MINOCA - ASA 81mg PO daily - continue Atorvastatin 40mg PO daily, check lipid panel - consider Utox - negative -trend trops today - Cardiology consulted - IV diuresis -Imdur discontinued due to migraines - r/o arrhythmic contribution with zio on discharge - consider starting sertraline > patient agreeable. Will start 25mg daily - decrease to Toprol XL12.5 daily -initiated ranolazine per cards #Abd Discomfort/Bloating - patient reporting longstanding intermittent LLQ pain. Sometimes located lower abd, sometimes epigastric. - simethicone PRN. Miralax daily and senakot BID ordered - KUB this admission with no revealing findings - CT A/P :Severe stenosis of the proximal SMA -Per vascular -Inpatient stent if cards clears versus outpatient #Decompensated HFpEF - HOLD home torsemide - Hold lasix today , ISO soft bp - daily weight, I&O #Bibasilar atelectasis #restrictive lung disease secondary to obesity CT A/P -Bibasilar groundglass opacities, favored atelectasis given dependent predilection, however, a superimposed infectious/inflammatory process or alveolar edema is not excluded. Afebrile , No White count , ABX not indicated at this time Incentive spirometer #pulmonary emboli on Eliquis #supraventricular tachycardia (AVNRT since 06/2021) #paroxysmal A-fib (diagnosed on 10/20/2022), Eliquis Last taken at 7 pm on 06/13/23 - switch to heparin on admission. Restart eliquis 06/15. -switched to heparin anticipating vascular procedure #Migraines - continue home nurtec q48hr dose adjusted - migraine cocktail PRN Fluids: per migraine cocktail Electrolytes: replete as above Diet: Cardiac diet DVT Prophlaxis: eliquis Code status: Attempt Cardiopulmonary Resuscitation - Inpatient Disposition: Discharge Planning: AM-PAC Basic Mobility Raw Score: 24 PT: OT: PCP JOCY Franco [phone] * Ciera Valdovinos, ALVA - 06/22/2023 2:38 PM EDT Nutrition Services Note - Low Nutrition Acuity Loida Roque is a 53 y.o. female Reason for intervention: hospital day 9 Nutrition Plan: Cardiac Diet Record % PO intake Monitor weight - diuresis noted Patient screened for hospital length of stay nutrition visit, documentation writer met with Loida at bedside. Loida reports excellent appetite, eating 100% of meals. She notes that she has not skipped any meals inpatient and has no current nutrition related questions. She notes UBW 217-218 lbs and says that current weight is higher than normal for her. Diuresis noted. Active Orders Diet Daily Healthy Menu Choices/Cardiac diet ([facility]-Diet) Frequency: Effective Now Number of Occurrences: Until Specified Admit Weight: 100.79 kg Estimated body mass index is 38.62 kg/m?? as calculated from the following: Height as of this encounter: 162.6 cm (5' 4). Weight as of this encounter: 102.1 kg (225 lb). Wt Readings from Last 5 Encounters: 06/22/23 102.1 kg (225 lb) 05/10/23 102.1 kg (225 lb) 04/22/23 98.5 kg (217 lb 1.6 oz) 04/19/23 97.2 kg (214 lb 4.6 oz) 04/01/23 102 kg (224 lb 12.8 oz) Weight loss: none Appetite: Excellent (75%-100%) Food allergies:no known food allergies Chewing/Swallowing difficulty: none Nausea/Vomiting: no nausea and no vomiting Last Bowel Movement: 06/22/23 (per patient) Patient education / questions: all nutrition related questions answered at this time Nutrition services to follow weekly through hospital course unless consulted in the interim. Ciera Valdovinos RD Clinical Dietitian * Ailyn Irvin MD - 06/22/2023 1:35 PM EDT CV HOSPITALIST 2 - [facility] DAILY PROGRESS NOTE Page [phone] to reach a provider 28/09 Admit Date: 06/14/2023 Encounter Date June 22, 2023 Anticipated Discharge Date: 06/24/2023 Hospital Day: 8 Active Hospital Problems Diagnosis NSTEMI (non-ST elevated myocardial infarction) Resolved Hospital Problems No resolved problems to display. 24 Hour Events/Subjective: -NAEON -C/o Chest pains 10/10 , radiating to Neck, worsens with inspiration , improved with nitro EKG withnon specific ST segment changes, pending trop and CXR,repeting ECHO, reached out to general cardiology ,HDS -CT A/P with severe SMA stenosis will reach out to vascular. Medications: Scheduled Meds: lidocaine 1 patch Transdermal Q24H metoprolol succinate XL 12.5 mg Oral Daily senna-docusate 2 tablet Oral BID polyethylene glycoL (MIRALAX) oral powder 17 g Oral Daily sertraline 25 mg Oral Daily apixaban 5 mg Oral BID amLODIPine 2.5 mg Oral Daily atorvastatin 40 mg Oral QPM DULoxetine DR 60 mg Oral Daily rOPINIRole 2 mg Oral BID gabapentin 600 mg Oral Nightly melatonin 6 mg Oral Nightly topiramate 100 mg Oral Nightly spironolactone 25 mg Oral Daily rimegepant 75 mg Oral Daily pantoprazole EC 40 mg Oral Daily sodium chloride 0.9 % (flush) 5 mL Intravenous BID aspirin EC 81 mg Oral Daily lidocaine 1 patch Transdermal Daily Continuous Infusions: PRN Meds:.nitroGLYcerin, simethicone, loratadine, sodium chloride 0.9 % (flush), lidocaine Objective: Last value Range last 24 hrs Temp: 36.5 ??C (97.7 ??F) Temp: [35.9 ??C (96.6 ??F)-36.7 ??C (98 ??F)] Heart Rate: (!) 49 Heart Rate: [42-81] BP: 104/62 BP: (101-149)/(51-84) Resp: 22 Resp: [17-22] SpO2: 97 % SpO2: [95 %-100 %] Height: 162.6 cm (5' 4) Weight: 102.1 kg (225 lb) BMI (Calculated): 38.14 BMI Classification: Obese Admit weight: 100.79 kg Patient Vitals for the past 168 hrs: Weight 06/22/23 0353 102.1 kg (225 lb) 06/21/23 0606 101.4 kg (223 lb 9.6 oz) 06/20/23 0333 101.2 kg (223 lb) 06/19/23 0327 101.2 kg (223 lb 3.2 oz) 06/18/23 0326 101.4 kg (223 lb 9.6 oz) 06/17/23 0449 101.1 kg (222 lb 12.8 oz) 06/16/23 0451 100.3 kg (221 lb 3.2 oz) Intake/Output Summary (Last 24 hours) at 06/22/2023 1335 Last data filed at 06/22/2023 1228 Gross per 24 hour Intake 180 ml Output 1200 ml Net -1020 ml Physical Exam: Physical Exam Constitutional: Comments: Patient in mild distress in AM, improved to no distress after migraine cocktail HENT: Mouth/Throat: Mouth: Mucous membranes are moist. Eyes: Pupils: Pupils are equal, round, and reactive to light. Cardiovascular: Rate and Rhythm: Normal rate and regular rhythm. Pulmonary: Effort: Pulmonary effort is normal. Breath sounds: Normal breath sounds. Abdominal: General: There is no distension. Palpations: Abdomen is soft. Tenderness: There is abdominal tenderness. There is no guarding or rebound. Comments: Tenderness most pronounced epigastric deep palpation Musculoskeletal: Cervical back: Neck supple. No rigidity. Right lower leg: No edema. Left lower leg: No edema. Skin: General: Skin is warm and dry. Neurological: General: No focal deficit present. Mental Status: She is alert. Cranial Nerves: No cranial nerve deficit. Labs: Recent Labs 06/22/23 0434 06/21/23 0325 06/20/23 0332 06/19/23 0322 06/18/23 0419 WBC 7.5 9.3 10.1* 9.4 8.4 HGB 12.8 14.9 14.2 13.9 14.5 HCT 39.1 44.2 41.5 41.7 42.8 PLATELET 225 279 253 244 258 MCV 96.8* 93.2 90.8 93.1 91.1 Recent Labs 06/22/23 0434 06/21/23 0558 06/21/23 0325 06/20/23 0332 06/19/23 1726 06/19/23 0322 NA 138 -- 138 137 139 137 CL 102 -- 100 102 103 100 CO2 19* -- 26 22 22 Not Perf K 3.9 4.0 Not Perf 3.7 3.9 3.6 MAGNESIUM 1.02 -- 1.04 1.00 0.98 1.00 PHOS 4.9* -- 5.1* 4.3 4.0 4.1 CALCIUM 9.4 -- 9.7 9.4 9.5 9.4 BUN 22* -- 27* 26* 21* 24* CREATININE 1.19 -- 1.11 1.12 1.06 1.04 Coags No results for input(s): INR, PT, PTT, DDIMER in the last 168 hours. Cardiac Markers Recent Labs 06/22/23 1124 06/21/23 0945 06/21/23 0558 TROPONINTHS 22* 22* -- PROBNP -- -- 1,370* Endocrine Recent Labs 06/15/23 0428 04/18/23 0210 04/17/23 0333 02/08/23 2208 09/27/22 0307 TSH 2.98 -- 5.93* 4.00 -- HA1C -- 5.6 -- -- 5.6 Recent Labs 06/16/23 0330 CHLPL 190 TRIG 126 HDL 50 LDLCHOL 115 Recent Labs 06/22/23 0434 06/21/23 0325 06/20/23 0332 GLUCOSE 94 95 99 Telemetry: I have personally reviewed and interpreted the telemetry from the last 24 hours. Resultsshow sinus, HR 40s-50s at night, 50s-70s during the day, occasional PAC. Frequent movement artifact. Imaging: Results for orders placed or performed during the hospital encounter of 06/14/23 (from the past 24 hour(s)) CT Abdomen & Pelvis w Contrast (Exam End: 06/21/2023 3:39 PM) Impression 1. No acute process in the abdomen or pelvis. 2. Severe stenosis of the proximal SMA. 3. Bibasilar groundglass opacities, favored atelectasis given dependent predilection, however, a superimposed infectious/inflammatory process or alveolar edema is not excluded. Thank you for letting us participate in the care of this patient. If you are a health care provider and have any questions regarding this report, please contact the number below. For patients who have questions please contact the health professional healthcare representative that requested 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 Electronically signed by: RONDA DUFFY MD, [facility] ([phone]), at 06/22/2023 7:59 AM XR Chest One View (Exam End: 06/22/2023 11:42 AM) Impression No acute pulmonary findings Thank you for letting us participate in the care of this patient. If you are a health care provider and have any questions regarding this report, please contact the number below. For patients who have questions please contact the health professional healthcare representative that requested 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 Electronically signed by: Itz Hayward MD, [facility] ([phone]), at 06/22/2023 11:47 AM Assessment: Loida Roque is a 53 y.o. 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 Tovar, paroxysmal A-fib (diagnosed on 10/20/2022), HFpEF, pulmonary emboli on Eliquis, and restrictive lung disease secondary to obesity who presented to OSH with chest pain. Patient has recently undergone extensive workup for ACS that has been unrevealing. 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 The patient current presentation is different with positive cardiac markers. Patient transferred to [facility] for further work-up and evaluation. On arrival, patient does appear to be volume overloaded. Cardiology consulted for MINOCA, and rec diuresis. Course c/b profound hypokalemia (K 2.9 on arrival) requiring aggressive repletion. Patient now diuresing well, with net negative 1L. Will aim for goal dry weight <220lbs. Given persistence of vague intermittent abd discomfort, will obtain CT AP w/ IV contrast to better assess for potential GI abnormalities. Plan: #NSTEMI, likely type I versus II #C/f MINOCA - ASA 81mg PO daily - continue Atorvastatin 40mg PO daily, check lipid panel - consider Utox - negative -trend trops today - Cardiology consulted - IV diuresis -Imdur discontinued due to migraines - r/o arrhythmic contribution with zio on discharge - consider starting sertraline > patient agreeable. Will start 25mg daily - decrease to Toprol XL12.5 daily #Abd Discomfort/Bloating - patient reporting longstanding intermittent LLQ pain. Sometimes located lower abd, sometimes epigastric. - simethicone PRN. Miralax daily and senakot BID ordered - KUB this admission with no revealing findings - CT A/P :Severe stenosis of the proximal SMA plan to reach out to vascular , No acute process #Decompensated HFpEF - HOLD home torsemide - IV lasix today - daily weight, I&O #Bibasilar atelectasis #restrictive lung disease secondary to obesity CT A/P -Bibasilar groundglass opacities, favored atelectasis given dependent predilection, however, a superimposed infectious/inflammatory process or alveolar edema is not excluded. Afebrile , No White count , ABX not indicated at this time Incentive spirometer Diuresis #pulmonary emboli on Eliquis #supraventricular tachycardia (AVNRT since 06/2021) #paroxysmal A-fib (diagnosed on 10/20/2022), Eliquis Last taken at 7 pm on 06/13/23 - switch to heparin on admission. Restart eliquis 06/15. #Migraines - continue home nurtec - migraine cocktail PRN Fluids: per migraine cocktail Electrolytes: replete as above Diet: Daily Healthy Menu Choices/Cardiac diet ([facility]-Diet) DVT Prophlaxis: eliquis Code status: Attempt Cardiopulmonary Resuscitation - Inpatient Disposition: Discharge Planning: AM-PAC Basic Mobility Raw Score: 24 PT: OT: PCP JOCY Franco [phone] * Eufemia Copeland MD - 06/21/2023 11:02 AM EDT [facility] - [facility] DAILY PROGRESS NOTE Page [phone] to reach a provider 28/09 Admit Date: 06/14/2023 Encounter Date June 21, 2023 Anticipated Discharge Date: 06/23/2023 Hospital Day: 7 Active Hospital Problems Diagnosis NSTEMI (non-ST elevated myocardial infarction) Resolved Hospital Problems No resolved problems to display. 24 Hour Events/Subjective: - net negative 1230cc on IV lasix TID, however weight not significantly changed/up trending today - continues to report abd discomfort and gas. Tenderness most pronounced on epigastric deep palpation. Medications: Scheduled Meds: metOLazone 2.5 mg Oral Once furosemide 40 mg Intravenous Once metoprolol succinate XL 12.5 mg Oral Daily senna-docusate 2 tablet Oral BID polyethylene glycoL (MIRALAX) oral powder 17 g Oral Daily sertraline 25 mg Oral Daily apixaban 5 mg Oral BID amLODIPine 2.5 mg Oral Daily atorvastatin 40 mg Oral QPM DULoxetine DR 60 mg Oral Daily rOPINIRole 2 mg Oral BID gabapentin 600 mg Oral Nightly melatonin 6 mg Oral Nightly topiramate 100 mg Oral Nightly spironolactone 25 mg Oral Daily rimegepant 75 mg Oral Daily pantoprazole EC 40 mg Oral Daily sodium chloride 0.9 % (flush) 5 mL Intravenous BID aspirin EC 81 mg Oral Daily lidocaine 1 patch Transdermal Daily Continuous Infusions: PRN Meds:.simethicone, loratadine, sodium chloride 0.9 % (flush), lidocaine Objective: Last value Range last 24 hrs Temp: 36.6 ??C (97.9 ??F) Temp: [36.4 ??C (97.5 ??F)-36.7 ??C (98 ??F)] Heart Rate: (!) 47 Heart Rate: [47-61] BP: 110/57 BP: (106-119)/(54-64) Resp: 20 Resp: [16-20] SpO2: 98 % SpO2: [98 %-100 %] Height: 162.6 cm (5' 4) Weight: 101.4 kg (223 lb 9.6 oz) BMI (Calculated): 38.14 BMI Classification: Obese Admit weight: 100.79 kg Patient Vitals for the past 168 hrs: Weight 06/21/23 0606 101.4 kg (223 lb 9.6 oz) 06/20/23 0333 101.2 kg (223 lb) 06/19/23 0327 101.2 kg (223 lb 3.2 oz) 06/18/23 0326 101.4 kg (223 lb 9.6 oz) 06/17/23 0449 101.1 kg (222 lb 12.8 oz) 06/16/23 0451 100.3 kg (221 lb 3.2 oz) 06/15/23 0509 100.7 kg (222 lb) 06/14/23 2308 100.8 kg (222 lb 3.2 oz) Intake/Output Summary (Last 24 hours) at 06/21/2023 1103 Last data filed at 06/21/2023 0606 Gross per 24 hour Intake 1070 ml Output 2650 ml Net -1580 ml Physical Exam: Physical Exam Constitutional: Comments: Patient in mild distress in AM, improved to no distress after migraine cocktail HENT: Mouth/Throat: Mouth: Mucous membranes are moist. Eyes: Pupils: Pupils are equal, round, and reactive to light. Cardiovascular: Rate and Rhythm: Normal rate and regular rhythm. Pulmonary: Effort: Pulmonary effort is normal. Breath sounds: Normal breath sounds. Abdominal: General: There is no distension. Palpations: Abdomen is soft. Tenderness: There is abdominal tenderness. There is no guarding or rebound. Comments: Tenderness most pronounced epigastric deep palpation Musculoskeletal: Cervical back: Neck supple. No rigidity. Right lower leg: No edema. Left lower leg: No edema. Skin: General: Skin is warm and dry. Neurological: General: No focal deficit present. Mental Status: She is alert. Cranial Nerves: No cranial nerve deficit. Labs: Recent Labs 06/21/23 0325 06/20/23 0332 06/19/23 0322 06/18/23 0419 06/17/23 0111 WBC 9.3 10.1* 9.4 8.4 9.5 HGB 14.9 14.2 13.9 14.5 14.2 HCT 44.2 41.5 41.7 42.8 43.0 PLATELET 279 253 244 258 256 MCV 93.2 90.8 93.1 91.1 93.5 Recent Labs 06/21/23 0558 06/21/23 0325 06/20/23 0332 06/19/23 1726 06/19/23 0322 06/18/23 1717 06/18/23 0419 NA -- 138 137 139 137 137 138 CL -- 100 102 103 100 101 102 CO2 -- 26 22 22 Not Perf 22 Not Perf K 4.0 Not Perf 3.7 3.9 3.6 4.2 4.2 MAGNESIUM -- 1.04 1.00 0.98 1.00 -- 1.02 PHOS -- 5.1* 4.3 4.0 4.1 -- 3.7 CALCIUM -- 9.7 9.4 9.5 9.4 9.6 9.5 BUN -- 27* 26* 21* 24* 22* 22* CREATININE -- 1.11 1.12 1.06 1.04 1.12 0.93 Coags Recent Labs 06/15/23 0428 INR 1.1 PT 12.7* Cardiac Markers Recent Labs 06/21/23 0945 06/21/23 0558 06/15/23 0818 06/15/23 0428 TROPONINTHS 22* -- 33* 34* PROBNP -- 1,370* -- 1,953* Endocrine Recent Labs 06/15/23 0428 04/18/23 0210 04/17/23 0333 02/08/23 2208 09/27/22 0307 TSH 2.98 -- 5.93* 4.00 -- HA1C -- 5.6 -- -- 5.6 Recent Labs 06/16/23 0330 CHLPL 190 TRIG 126 HDL 50 LDLCHOL 115 Recent Labs 06/21/23 0325 06/20/23 0332 06/19/23 1726 GLUCOSE 95 99 105 Telemetry: I have personally reviewed and interpreted the telemetry from the last 24 hours. Resultsshow sinus, HR 40s-50s at night, 50s-70s during the day, occasional PAC. Frequent movement artifact. Imaging: No results found for this visit on 06/14/23 (from the past 24 hour(s)). Assessment: Loida Roque is a 53 y.o. 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 Tovar, paroxysmal A-fib (diagnosed on 10/20/2022), HFpEF, pulmonary emboli on Eliquis, and restrictive lung disease secondary to obesity who presented to OSH with chest pain. Patient has recently undergone extensive workup for ACS that has been unrevealing. 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 The patient current presentation is different with positive cardiac markers. Patient transferred to [facility] for further work-up and evaluation. On arrival, patient does appear to be volume overloaded. Cardiology consulted for MINOCA, and rec diuresis. Course c/b profound hypokalemia (K 2.9 on arrival) requiring aggressive repletion. Patient now diuresing well, with net negative 1L. Will aim for goal dry weight <220lbs. Given persistence of vague intermittent abd discomfort, will obtain CT AP w/ IV contrast to better assess for potential GI abnormalities. Plan: #Abd Discomfort/Bloating - patient reporting longstanding intermittent LLQ pain. Sometimes located lower abd, sometimes epigastric. - simethicone PRN. Miralax daily and senakot BID ordered - KUB this admission with no revealing findings - CT A/P today #Decompensated HFpEF - HOLD home torsemide - will hold diuresis today pending abd imaging. May consider metolazone + IV lasix for PM - assess response and re-dose PRN - daily weight, I&O #NSTEMI, likely type II #C/f MINOCA - ASA 81mg PO daily - continue Atorvastatin 40mg PO daily, check lipid panel - Cardiology consulted - IV diuresis - consider Utox - negative - consider Imdur - discontinued due to migraines - r/o arrhythmic contribution with zio on discharge - consider starting sertraline > patient agreeable. Will start 25mg daily - decrease to Toprol XL12.5 daily #restrictive lung disease secondary to obesity #pulmonary emboli on Eliquis #supraventricular tachycardia (AVNRT since 06/2021) #paroxysmal A-fib (diagnosed on 10/20/2022), Eliquis Last taken at 7 pm on 06/13/23 - switch to heparin on admission. Restart eliquis 06/15. #Migraines - continue home nurte - migraine cocktail PRN Fluids: per migraine cocktail Electrolytes: replete as above Diet: Daily Healthy Menu Choices/Cardiac diet ([facility]-Diet) DVT Prophlaxis: eliquis Code status: Attempt Cardiopulmonary Resuscitation - Inpatient Disposition: Discharge Planning: AM-PAC Basic Mobility Raw Score: 24 PT: OT: PCP JOCY Franco [phone] * Eufemia Copeland MD - 06/20/2023 8:06 AM EDT [facility]ITALIST 2 - [facility] DAILY PROGRESS NOTE Page [phone] to reach a provider 28/09 Admit Date: 06/14/2023 Encounter Date June 20, 2023 Anticipated Discharge Date: 06/20/2023 Hospital Day: 6 Active Hospital Problems Diagnosis NSTEMI (non-ST elevated myocardial infarction) Resolved Hospital Problems No resolved problems to display. 24 Hour Events/Subjective: - net negative 1350cc on IV lasix BID, however weight not significantly changed - continues to report abd discomfort and gas (though NTTP on exam) Medications: Scheduled Meds: furosemide 40 mg Intravenous BID senna-docusate 2 tablet Oral BID polyethylene glycoL (MIRALAX) oral powder 17 g Oral Daily metoproloL tartrate 12.5 mg Oral 2 times per day sertraline 25 mg Oral Daily apixaban 5 mg Oral BID amLODIPine 2.5 mg Oral Daily atorvastatin 40 mg Oral QPM DULoxetine DR 60 mg Oral Daily rOPINIRole 2 mg Oral BID gabapentin 600 mg Oral Nightly melatonin 6 mg Oral Nightly topiramate 100 mg Oral Nightly spironolactone 25 mg Oral Daily rimegepant 75 mg Oral Daily pantoprazole EC 40 mg Oral Daily sodium chloride 0.9 % (flush) 5 mL Intravenous BID aspirin EC 81 mg Oral Daily lidocaine 1 patch Transdermal Daily Continuous Infusions: lactated Ringers 250 mL (06/17/23 1336) PRN Meds:.loratadine, sodium chloride 0.9 % (flush), lidocaine Objective: Last value Range last 24 hrs Temp: 36.4 ??C (97.5 ??F) Temp: [36.4 ??C (97.5 ??F)-36.6 ??C (97.8 ??F)] Heart Rate: 52 Heart Rate: [47-65] BP: 110/65 BP: (101-113)/(52-69) Resp: 17 Resp: [16-17] SpO2: 99 % SpO2: [96 %-99 %] Height: 162.6 cm (5' 4) Weight: 101.2 kg (223 lb) BMI (Calculated): 38.14 BMI Classification: Obese Admit weight: 100.79 kg Patient Vitals for the past 168 hrs: Weight 06/20/23 0333 101.2 kg (223 lb) 06/19/23 0327 101.2 kg (223 lb 3.2 oz) 06/18/23 0326 101.4 kg (223 lb 9.6 oz) 06/17/23 0449 101.1 kg (222 lb 12.8 oz) 06/16/23 0451 100.3 kg (221 lb 3.2 oz) 06/15/23 0509 100.7 kg (222 lb) 06/14/23 2308 100.8 kg (222 lb 3.2 oz) Intake/Output Summary (Last 24 hours) at 06/20/2023 0806 Last data filed at 06/20/2023 0342 Gross per 24 hour Intake 740 ml Output 2050 ml Net -1310 ml Physical Exam: Physical Exam Constitutional: Comments: Patient in mild distress in AM, improved to no distress after migraine cocktail HENT: Mouth/Throat: Mouth: Mucous membranes are moist. Eyes: Pupils: Pupils are equal, round, and reactive to light. Cardiovascular: Rate and Rhythm: Normal rate and regular rhythm. Pulmonary: Effort: Pulmonary effort is normal. Breath sounds: Normal breath sounds. Abdominal: General: There is no distension. Palpations: Abdomen is soft. Tenderness: There is no abdominal tenderness. There is no guarding or rebound. Musculoskeletal: Cervical back: Neck supple. No rigidity. Right lower leg: No edema. Left lower leg: No edema. Skin: General: Skin is warm and dry. Neurological: General: No focal deficit present. Mental Status: She is alert. Cranial Nerves: No cranial nerve deficit. Labs: Recent Labs 06/20/23 0332 06/19/23 0322 06/18/23 0419 06/17/23 0111 06/16/23 0330 WBC 10.1* 9.4 8.4 9.5 8.2 HGB 14.2 13.9 14.5 14.2 14.5 HCT 41.5 41.7 42.8 43.0 42.7 PLATELET 253 244 258 256 260 MCV 90.8 93.1 91.1 93.5 91.0 Recent Labs 06/20/23 0332 06/19/23 1726 06/19/23 0322 06/18/23 1717 06/18/23 0419 06/17/23 1426 NA 137 139 137 137 138 135 CL 102 103 100 101 102 97* CO2 22 22 Not Perf 22 Not Perf 24 K 3.7 3.9 3.6 4.2 4.2 3.7 MAGNESIUM 1.00 0.98 1.00 -- 1.02 1.01 PHOS 4.3 4.0 4.1 -- 3.7 2.8 CALCIUM 9.4 9.5 9.4 9.6 9.5 9.6 BUN 26* 21* 24* 22* 22* 21* CREATININE 1.12 1.06 1.04 1.12 0.93 1.07 Coags Recent Labs 06/15/23 0428 INR 1.1 PT 12.7* Cardiac Markers Recent Labs 06/15/23 0818 06/15/23 0428 TROPONINTHS 33* 34* PROBNP -- 1,953* Endocrine Recent Labs 06/15/23 0428 04/18/23 0210 04/17/23 0333 02/08/23 2208 09/27/22 0307 TSH 2.98 -- 5.93* 4.00 -- HA1C -- 5.6 -- -- 5.6 Recent Labs 06/16/23 0330 CHLPL 190 TRIG 126 HDL 50 LDLCHOL 115 Recent Labs 06/20/23 0332 06/19/23 1726 06/19/23 0322 GLUCOSE 99 105 101 Telemetry: I have personally reviewed and interpreted the telemetry from the last 24 hours. Resultsshow sinus, HR 40s-50s at night, 50s-80s during the day, occasional PAC Imaging: No results found for this visit on 06/14/23 (from the past 24 hour(s)). Assessment: Loida Roque is a 53 y.o. 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 Tovar, paroxysmal A-fib (diagnosed on 10/20/2022), HFpEF, pulmonary emboli on Eliquis, and restrictive lung disease secondary to obesity who presented to OSH with chest pain. Patient has recently undergone extensive workup for ACS that has been unrevealing. 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 The patient current presentation is different with positive cardiac markers. Patient transferred to [facility] for further work-up and evaluation. On arrival, patient does appear to be volume overloaded. Cardiology consulted for MINOCA, and rec diuresis. Course c/b profound hypokalemia (K 2.9 on arrival) requiring aggressive repletion. Patient now diuresing well, with net negative 1L. Will aim for goal dry weight <220lbs. Plan: #Decompensated HFpEF - HOLD home torsemide - increase IV lasix to 40 TID - will consider augmenting with thiazide, though will need to weigh risk hypokalemia - assess response and re-dose PRN - daily weight, I&O #NSTEMI, likely type II #C/f MINOCA - ASA 81mg PO daily - continue Atorvastatin 40mg PO daily, check lipid panel - Cardiology consulted - IV diuresis - consider Utox - negative - consider Imdur - discontinued due to migraines - r/o arrhythmic contribution with zio on discharge - consider starting sertraline > patient agreeable. Will start 25mg daily - continue lopressor 12.5 BID #Intermittent Abd Pain - patient reporting longstanding intermittent LLQ pain. Also c/o foul smelling discharge from umbilicus. No discharge noted on exam - will get KUB to assess for stool burden given harder stools - senakot and miralax daily #restrictive lung disease secondary to obesity #pulmonary emboli on Eliquis #supraventricular tachycardia (AVNRT since 06/2021) #paroxysmal A-fib (diagnosed on 10/20/2022), Eliquis Last taken at 7 pm on 06/13/23 - switch to heparin on admission. Restart eliquis 06/15. #Migraines - continue home nurtec - migraine cocktail PRN Fluids: per migraine cocktail Electrolytes: replete as above Diet: Daily Healthy Menu Choices/Cardiac diet ([facility]-Diet) DVT Prophlaxis: eliquis Code status: Attempt Cardiopulmonary Resuscitation - Inpatient Disposition: Discharge Planning: AM-PAC Basic Mobility Raw Score: 24 PT: OT: PCP JOCY Franco [phone] * Eufemia Copeland MD - 06/19/2023 10:00 AM EDT [facility]ITALIST 2 - [facility] DAILY PROGRESS NOTE Page [phone] to reach a provider 28/09 Admit Date: 06/14/2023 Encounter Date June 19, 2023 Anticipated Discharge Date: 06/20/2023 Hospital Day: 5 Active Hospital Problems Diagnosis NSTEMI (non-ST elevated myocardial infarction) Resolved Hospital Problems No resolved problems to display. 24 Hour Events/Subjective: - Patient with chest pain early AM today. Given ntg with subsequent migraine development. Given IV diphenhydramine and IV metoclopramide with relief - net -1615 today with IV lasix 40 BID yesterday. However weight with very little change. Discusseddry weight likely <220 - Denies chest pain, SOB, dizziness - reporting lower abd pain now, though mild. Not associated with nausea, BM, NTTP Medications: Scheduled Meds: furosemide 40 mg Intravenous BID senna-docusate 2 tablet Oral BID polyethylene glycoL (MIRALAX) oral powder 17 g Oral Daily metoproloL tartrate 12.5 mg Oral 2 times per day sertraline 25 mg Oral Daily apixaban 5 mg Oral BID amLODIPine 2.5 mg Oral Daily atorvastatin 40 mg Oral QPM DULoxetine DR 60 mg Oral Daily rOPINIRole 2 mg Oral BID gabapentin 600 mg Oral Nightly melatonin 6 mg Oral Nightly topiramate 100 mg Oral Nightly spironolactone 25 mg Oral Daily rimegepant 75 mg Oral Daily pantoprazole EC 40 mg Oral Daily sodium chloride 0.9 % (flush) 5 mL Intravenous BID aspirin EC 81 mg Oral Daily lidocaine 1 patch Transdermal Daily Continuous Infusions: lactated Ringers 250 mL (06/17/23 1336) PRN Meds:.loratadine, sodium chloride 0.9 % (flush), lidocaine Objective: Last value Range last 24 hrs Temp: 36.6 ??C (97.8 ??F) Temp: [36.6 ??C (97.8 ??F)-37.1 ??C (98.8 ??F)] Heart Rate: 51 Heart Rate: [51-62] BP: 101/54 BP: (96-118)/(52-73) Resp: 16 Resp: [16-18] SpO2: 97 % SpO2: [96 %-97 %] Height: 162.6 cm (5' 4) Weight: 101.2 kg (223 lb 3.2 oz) BMI (Calculated): 38.14 BMI Classification: Obese Admit weight: 100.79 kg Patient Vitals for the past 168 hrs: Weight 06/19/23 0327 101.2 kg (223 lb 3.2 oz) 06/18/23 0326 101.4 kg (223 lb 9.6 oz) 06/17/23 0449 101.1 kg (222 lb 12.8 oz) 06/16/23 0451 100.3 kg (221 lb 3.2 oz) 06/15/23 0509 100.7 kg (222 lb) 06/14/23 2308 100.8 kg (222 lb 3.2 oz) Intake/Output Summary (Last 24 hours) at 06/19/2023 1703 Last data filed at 06/19/2023 1600 Gross per 24 hour Intake 900 ml Output 1750 ml Net -850 ml Physical Exam: Physical Exam Constitutional: Comments: Patient in mild distress in AM, improved to no distress after migraine cocktail HENT: Mouth/Throat: Mouth: Mucous membranes are moist. Eyes: Pupils: Pupils are equal, round, and reactive to light. Cardiovascular: Rate and Rhythm: Normal rate and regular rhythm. Pulmonary: Effort: Pulmonary effort is normal. Breath sounds: Normal breath sounds. Abdominal: General: There is no distension. Palpations: Abdomen is soft. Tenderness: There is no abdominal tenderness. There is no guarding or rebound. Musculoskeletal: Cervical back: Neck supple. No rigidity. Right lower leg: No edema. Left lower leg: No edema. Skin: General: Skin is warm and dry. Neurological: General: No focal deficit present. Mental Status: She is alert. Cranial Nerves: No cranial nerve deficit. Labs: Recent Labs 06/19/23 0322 06/18/23 0419 06/17/23 0111 06/16/23 0330 06/15/23 0428 WBC 9.4 8.4 9.5 8.2 6.7 HGB 13.9 14.5 14.2 14.5 16.1* HCT 41.7 42.8 43.0 42.7 48.2* PLATELET 244 258 256 260 253 MCV 93.1 91.1 93.5 91.0 94.7* Recent Labs 06/19/23 0322 06/18/23 1717 06/18/23 0419 06/17/23 1426 06/17/23 0501 06/17/23 0111 06/16/23 0901 06/16/23 0330 06/15/23 0818 06/15/23 0428 NA 137 137 138 135 136 137 < > 135 < > 134* CL 100 101 102 97* 100 100 < > 90* < > 90* CO2 Not Perf 22 Not Perf 24 24 24 < > 33* < > 28 K 3.6 4.2 4.2 3.7 Not Perf 4.1 < > 2.7* < > 2.7* MAGNESIUM 1.00 -- 1.02 1.01 -- 0.96 -- 1.09* < > 1.22* PHOS 4.1 -- 3.7 2.8 -- -- -- -- -- 4.4 CALCIUM 9.4 9.6 9.5 9.6 9.5 9.2 < > 9.2 < > 9.7 9.7 BUN 24* 22* 22* 21* 24* 24* < > 28* < > 30* CREATININE 1.04 1.12 0.93 1.07 1.03 1.08 < > 1.20 < > 1.24* < > = values in this interval not displayed. Coags Recent Labs 04/09/24 0428 INR 1.1 PT 12.7* Cardiac Markers Recent Labs 06/15/23 0818 06/15/23 0428 TROPONINTHS 33* 34* PROBNP -- 1,953* Endocrine Recent Labs 06/15/23 0428 04/18/23 0210 04/17/23 0333 02/08/23 2208 09/27/22 0307 TSH 2.98 -- 5.93* 4.00 -- HA1C -- 5.6 -- -- 5.6 Recent Labs 06/16/23 0330 CHLPL 190 TRIG 126 HDL 50 LDLCHOL 115 Recent Labs 06/19/23 0322 06/18/23 1717 06/18/23 0419 GLUCOSE 101 115 96 Telemetry: I have personally reviewed and interpreted the telemetry from the last 24 hours. Resultsshow sinus, HR 50s-80, occasional PAC Imaging: No results found for this visit on 06/14/23 (from the past 24 hour(s)). Assessment: Loida Roque is a 53 y.o. 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 Tovar, paroxysmal A-fib (diagnosed on 10/20/2022), HFpEF, pulmonary emboli on Eliquis, and restrictive lung disease secondary to obesity who presented to OSH with chest pain. Patient has recently undergone extensive workup for ACS that has been unrevealing. 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 The patient current presentation is different with positive cardiac markers. Patient transferred to [facility] for further work-up and evaluation. On arrival, patient does appear to be volume overloaded. Cardiology consulted for MINOCA, and rec diuresis. Course c/b profound hypokalemia (K 2.9 on arrival) requiring aggressive repletion. Patient now diuresing well. Will aim for goal dry weight <220lbs. Plan: #Decompensated HFpEF, - HOLD home torsemide - continue IV lasix 40 BID - assess response and re-dose PRN - daily weight, I&O #NSTEMI, likely type II #C/f MINOCA - ASA 81mg PO daily - continue Atorvastatin 40mg PO daily, check lipid panel - Cardiology consulted - IV diuresis - consider Utox - negative - consider Imdur - discontinued due to migraines - r/o arrhythmic contribution with zio on discharge - consider starting sertraline > patient agreeable. Will start 25mg daily - continue lopressor 12.5 BID #Intermittent Abd Pain - patient reporting longstanding intermittent LLQ pain. Also c/o foul smelling discharge from umbilicus. No discharge noted on exam - will get KUB to assess for stool burden given harder stools - senakot and miralax daily #restrictive lung disease secondary to obesity #pulmonary emboli on Eliquis #supraventricular tachycardia (AVNRT since 06/2021) #paroxysmal A-fib (diagnosed on 10/20/2022), Eliquis Last taken at 7 pm on 06/13/23 - switch to heparin on admission. Restart eliquis 06/15. #Migraines - continue home nurtec - migraine cocktail PRN Fluids: per migraine cocktail Electrolytes: replete as above Diet: Daily Healthy Menu Choices/Cardiac diet ([facility]-Diet) DVT Prophlaxis: eliquis Code status: Attempt Cardiopulmonary Resuscitation - Inpatient Disposition: Discharge Planning: AM-PAC Basic Mobility Raw Score: 24 PT: OT: PCP JOCY Franco [phone] * Eufemia Copeland MD - 06/18/2023 9:02 AM EDT [facility] - [facility] DAILY PROGRESS NOTE Page [phone] to reach a provider 28/09 Admit Date: 06/14/2023 Encounter Date June 18, 2023 Anticipated Discharge Date: 06/19/2023 Hospital Day: 4 Active Hospital Problems Diagnosis NSTEMI (non-ST elevated myocardial infarction) Resolved Hospital Problems No resolved problems to display. 24 Hour Events/Subjective: - patient with migraine today afternoon as well. Will discontinue Imdur, as it may be contributing - D/w patient risks vs benefits of more aggressive diuresis. Patient agreeable for IV lasix BID today - Denies chest pain, SOB, dizziness Medications: Scheduled Meds: furosemide 40 mg Intravenous Once senna-docusate 2 tablet Oral BID polyethylene glycoL (MIRALAX) oral powder 17 g Oral Daily metoproloL tartrate 12.5 mg Oral 2 times per day sertraline 25 mg Oral Daily apixaban 5 mg Oral BID amLODIPine 2.5 mg Oral Daily atorvastatin 40 mg Oral QPM DULoxetine DR 60 mg Oral Daily rOPINIRole 2 mg Oral BID gabapentin 600 mg Oral Nightly melatonin 6 mg Oral Nightly topiramate 100 mg Oral Nightly spironolactone 25 mg Oral Daily rimegepant 75 mg Oral Daily pantoprazole EC 40 mg Oral Daily sodium chloride 0.9 % (flush) 5 mL Intravenous BID aspirin EC 81 mg Oral Daily lidocaine 1 patch Transdermal Daily Continuous Infusions: lactated Ringers 250 mL (06/17/23 1336) PRN Meds:.loratadine, nitroGLYcerin, sodium chloride 0.9 % (flush), lidocaine Objective: Last value Range last 24 hrs Temp: 36.7 ??C (98.1 ??F) Temp: [36.4 ??C (97.6 ??F)-36.7 ??C (98.1 ??F)] Heart Rate: 50 Heart Rate: [50-61] BP: 119/74 BP: (96-119)/(58-74) Resp: 18 Resp: [14-18] SpO2: 97 % SpO2: [95 %-99 %] Height: 162.6 cm (5' 4) Weight: 101.4 kg (223 lb 9.6 oz) BMI (Calculated): 38.14 BMI Classification: Obese Admit weight: 100.79 kg Patient Vitals for the past 168 hrs: Weight 06/18/23 0326 101.4 kg (223 lb 9.6 oz) 06/17/23 0449 101.1 kg (222 lb 12.8 oz) 06/16/23 0451 100.3 kg (221 lb 3.2 oz) 06/15/23 0509 100.7 kg (222 lb) 06/14/23 2308 100.8 kg (222 lb 3.2 oz) Intake/Output Summary (Last 24 hours) at 06/18/2023 1502 Last data filed at 06/18/2023 1300 Gross per 24 hour Intake 1767 ml Output 2250 ml Net -483 ml Physical Exam: Physical Exam Constitutional: Comments: Patient in mild distress in AM, improved to no distress after migraine cocktail HENT: Mouth/Throat: Mouth: Mucous membranes are moist. Eyes: Pupils: Pupils are equal, round, and reactive to light. Cardiovascular: Rate and Rhythm: Normal rate and regular rhythm. Pulmonary: Effort: Pulmonary effort is normal. Breath sounds: Normal breath sounds. Abdominal: General: There is no distension. Palpations: Abdomen is soft. Tenderness: There is no abdominal tenderness. There is no guarding or rebound. Musculoskeletal: Cervical back: Neck supple. No rigidity. Right lower leg: No edema. Left lower leg: No edema. Skin: General: Skin is warm and dry. Neurological: General: No focal deficit present. Mental Status: She is alert. Cranial Nerves: No cranial nerve deficit. Labs: Recent Labs 06/18/23 0419 06/17/23 0111 06/16/23 0330 06/15/23 0428 WBC 8.4 9.5 8.2 6.7 HGB 14.5 14.2 14.5 16.1* HCT 42.8 43.0 42.7 48.2* PLATELET 258 256 260 253 MCV 91.1 93.5 91.0 94.7* Recent Labs 06/18/23 0419 06/17/23 1426 06/17/23 0501 06/17/23 0111 06/16/23 2028 06/16/23 0901 06/16/23 0330 06/15/23 2133 06/15/23 1747 06/15/23 0818 06/15/23 0428 NA 138 135 136 137 137 < > 135 < > 134* < > 134* CL 102 97* 100 100 99 < > 90* < > 89* < > 90* CO2 Not Perf 24 24 24 26 < > 33* < > 29 < > 28 K 4.2 3.7 Not Perf 4.1 4.2 < > 2.7* < > 2.9* < > 2.7* MAGNESIUM 1.02 1.01 -- 0.96 -- -- 1.09* -- 1.10* -- 1.22* PHOS 3.7 2.8 -- -- -- -- -- -- -- -- 4.4 CALCIUM 9.5 9.6 9.5 9.2 9.3 < > 9.2 < > 9.1 < > 9.7 9.7 BUN 22* 21* 24* 24* 23* < > 28* < > 29* < > 30* CREATININE 0.93 1.07 1.03 1.08 1.21* < > 1.20 < > 1.20 < > 1.24* < > = values in this interval not displayed. Coags Recent Labs 06/15/23 0428 INR 1.1 PT 12.7* Cardiac Markers Recent Labs 06/15/23 0818 06/15/23 0428 TROPONINTHS 33* 34* PROBNP -- 1,953* Endocrine Recent Labs 06/15/23 0428 04/18/23 0210 04/17/23 0333 02/08/23 2208 09/27/22 0307 TSH 2.98 -- 5.93* 4.00 -- HA1C -- 5.6 -- -- 5.6 Recent Labs 06/16/23 0330 CHLPL 190 TRIG 126 HDL 50 LDLCHOL 115 Recent Labs 06/18/23 0419 06/17/23 1426 06/17/23 0501 GLUCOSE 96 103 100 Imaging: No results found for this visit on 06/14/23 (from the past 24 hour(s)). Assessment: Loida Roque is a 53 y.o. 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 Tovar, paroxysmal A-fib (diagnosed on 10/20/2022), HFpEF, pulmonary emboli on Eliquis, and restrictive lung disease secondary to obesity who presented to OSH with chest pain. Patient has recently undergone extensive workup for ACS that has been unrevealing. 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 The patient current presentation is different with positive cardiac markers. Patient transferred to [facility] for further work-up and evaluation. On arrival, patient does appear to be volume overloaded. Cardiology consulted for MINOCA, and rec diuresis. Course c/b profound hypokalemia (K 2.9 on arrival) requiring aggressive repletion. Plan: #NSTEMI, likely type II #C/f MINOCA - ASA 81mg PO daily - continue Atorvastatin 40mg PO daily, check lipid panel - NTG PRN chest pain or NTG drip if ongoing chest pain - Cardiology consulted - IV diuresis - consider Utox - negative - consider Imdur - discontinued due to migraines - r/o arrhythmic contribution with zio on discharge - consider starting sertraline > patient agreeable. Will start 25mg daily - continue lopressor 12.5 BID #Intermittent Abd Pain - patient reporting longstanding intermittent LLQ pain. Also c/o foul smelling discharge from umbilicus. No discharge noted on exam - will get KUB to assess for stool burden given harder stools - senakot and miralax daily #Decompensated HFpEF, - HOLD home torsemide - increase to IV lasix 40 BID - assess response and re-dose PRN - daily weight, I&O #restrictive lung disease secondary to obesity #pulmonary emboli on Eliquis #supraventricular tachycardia (AVNRT since 06/2021) #paroxysmal A-fib (diagnosed on 10/20/2022), Eliquis Last taken at 7 pm on 06/13/23 - switch to heparin on admission. Restart eliquis 06/15 #Migraines - continue home nurtec - migraine cocktail PRN Fluids: per migraine cocktail Electrolytes: replete as above Diet: Daily Healthy Menu Choices/Cardiac diet ([facility]-Diet) DVT Prophlaxis: eliquis Code status: Attempt Cardiopulmonary Resuscitation - Inpatient Disposition: Discharge Planning: AM-PAC Basic Mobility Raw Score: 24 PT: OT: PCP JOCY Franco [phone] * Eufemia Copeland MD - 06/17/2023 12:02 PM EDT [facility]ITAL[facility] 2 - [facility] DAILY PROGRESS NOTE Page [phone] to reach a provider 28/09 Admit Date: 06/14/2023 Encounter Date June 17, 2023 Anticipated Discharge Date: 06/20/2023 Hospital Day: 3 Active Hospital Problems Diagnosis NSTEMI (non-ST elevated myocardial infarction) Resolved Hospital Problems No resolved problems to display. 24 Hour Events/Subjective: - Reporting abd pain LLQ, has been present on and off for at least 2 weeks. Does report harder stools while inpatient. - Denies chest pains, SOB, dizziness - net negative [id number] yesterday with 1 dose IV lasix Medications: Scheduled Meds: senna-docusate 2 tablet Oral BID polyethylene glycoL (MIRALAX) oral powder 17 g Oral Daily metoproloL tartrate 12.5 mg Oral 2 times per day sertraline 25 mg Oral Daily apixaban 5 mg Oral BID amLODIPine 2.5 mg Oral Daily atorvastatin 40 mg Oral QPM DUL[address] DR 60 mg Oral Daily rOPINIRole 2 mg Oral BID gabapentin 600 mg Oral Nightly melatonin 6 mg Oral Nightly topiramate 100 mg Oral Nightly spironolactone 25 mg Oral Daily rimegepant 75 mg Oral Daily pantoprazole EC 40 mg Oral Daily sodium chloride 0.9 % (flush) 5 mL Intravenous BID aspirin EC 81 mg Oral Daily isosorbide mononitrate CR 30 mg Oral QAM lidocaine 1 patch Transdermal Daily Continuous Infusions: lactated Ringers 250 mL (06/17/23 1336) PRN Meds:.loratadine, nitroGLYcerin, sodium chloride 0.9 % (flush), lidocaine Objective: Last value Range last 24 hrs Temp: 36.6 ??C (97.9 ??F) Temp: [36.4 ??C (97.6 ??F)-37.3 ??C (99.2 ??F)] Heart Rate: 56 Heart Rate: [52-60] BP: 114/74 BP: (99-124)/(48-74) Resp: 18 Resp: [17-19] SpO2: 100 % SpO2: [97 %-100 %] Height: 162.6 cm (5' 4) Weight: 101.1 kg (222 lb 12.8 oz) BMI (Calculated): 38.14 BMI Classification: Obese Admit weight: 100.79 kg Patient Vitals for the past 168 hrs: Weight 06/17/23 0449 101.1 kg (222 lb 12.8 oz) 06/16/23 0451 100.3 kg (221 lb 3.2 oz) 06/15/23 0509 100.7 kg (222 lb) 06/14/23 2308 100.8 kg (222 lb 3.2 oz) Intake/Output Summary (Last 24 hours) at 06/17/2023 1603 Last data filed at 06/17/2023 1200 Gross per 24 hour Intake 845 ml Output 3700 ml Net -2855 ml Physical Exam: Physical Exam Constitutional: Comments: Patient in mild distress in AM, improved to no distress after migraine cocktail HENT: Mouth/Throat: Mouth: Mucous membranes are moist. Eyes: Pupils: Pupils are equal, round, and reactive to light. Cardiovascular: Rate and Rhythm: Normal rate and regular rhythm. Pulmonary: Effort: Pulmonary effort is normal. Breath sounds: Normal breath sounds. Abdominal: General: There is no distension. Palpations: Abdomen is soft. Tenderness: There is no guarding or rebound. Comments: Tender on deep palpation in LLQ Musculoskeletal: Cervical back: Neck supple. No rigidity. Right lower leg: No edema. Left lower leg: No edema. Skin: General: Skin is warm and dry. Neurological: General: No focal deficit present. Mental Status: She is alert. Cranial Nerves: No cranial nerve deficit. Labs: Recent Labs 06/17/23 0111 06/16/23 0330 06/15/23 0428 WBC 9.5 8.2 6.7 HGB 14.2 14.5 16.1* HCT 43.0 42.7 48.2* PLATELET 256 260 253 MCV 93.5 91.0 94.7* Recent Labs 06/17/23 1426 06/17/23 0501 06/17/23 0111 06/16/23202706/16/23 1429 06/16/23 0901 06/16/23 0330 06/15/23 2133 06/15/23 1747 06/15/23 0818 06/15/23 0428 NA 135 136 137 137 135 < > 135 < > 134* < > 134* CL 97* 100 100 99 96* < > 90* < > 89* < > 90* CO2 24 26 26 < > 33* < > 29 < > 28 K 3.7 Not Perf 4.1 4.2 3.9 < > 2.7* < > 2.9* < > 2.7* MAGNESIUM 1.01 -- 0.96 -- -- -- 1.09* -- 1.10* -- 1.22* PHOS 2.8 -- -- -- -- -- -- -- -- -- 4.4 CALCIUM 9.6 9.5 9.2 9.3 9.3 < > 9.2 < > 9.1 < > 9.7 9.7 BUN 21* 24* 24* 23* 25* < > 28* < > 29* < > 30* CREATININE 1.07 1.03 1.08 1.21* 1.27* < > 1.20 < > 1.20 < > 1.24* < > = values in this interval not displayed. Coags Recent Labs 06/15/23 0428 INR 1.1 PT 12.7* Cardiac Markers Recent Labs 06/15/23 0818 06/15/23 0428 TROPONINTHS 33* 34* PROBNP -- 1,953* Endocrine Recent Labs 06/15/23 0428 04/18/23 0210 04/17/23 0333 02/08/23 2208 09/27/22 0307 TSH 2.98 -- 5.93* 4.00 -- HA1C -- 5.6 -- -- 5.6 Recent Labs 06/16/23 0330 CHLPL 190 TRIG 126 HDL 50 LDLCHOL 115 Recent Labs 06/17/23 1426 06/17/23 0501 06/17/23 0111 GLUCOSE 103 100 102 Telemetry: I have personally reviewed and interpreted the telemetry from the last 24 hours. Resultsshow sinus/sinus morgan, HR 50s-90s, PACs. Imaging: No results found for this visit on 06/14/23 (from the past 24 hour(s)). Assessment: Loida Roque is a 53 y.o. 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 Tovar, paroxysmal A-fib (diagnosed on 10/20/2022), HFpEF, pulmonary emboli on Eliquis, and restrictive lung disease secondary to obesity who presented to OSH with chest pain. Patient has recently undergone extensive workup for ACS that has been unrevealing. 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 The patient current presentation is different with positive cardiac markers. Patient transferred to [facility] for further work-up and evaluation. On arrival, patient does appear to be volume overloaded. Cardiology consulted for MINOCA, and rec diuresis. Course c/b profound hypokalemia (K 2.9 on arrival) requiring aggressive repletion. Plan: #NSTEMI, likely type II #C/f MINOCA - ASA 81mg PO daily - continue Atorvastatin 40mg PO daily, check lipid panel - NTG PRN chest pain or NTG drip if ongoing chest pain - Cardiology consulted - IV diuresis - consider Utox - negative - consider Imdur - r/o arrhythmic contribution with zio on discharge - consider starting sertraline > patient agreeable. Will start 25mg daily - start low dose lopressor 12.5 BID today and assess response #Intermittent Abd Pain - patient reporting longstanding intermittent LLQ pain. Also c/o foul smelling discharge from umbilicus. No discharge noted on exam - will get KUB to assess for stool burden given harder stools - senakot and miralax daily #Decompensated HFpEF, - continue with IV lasix 40 - HOLD home torsemide - assess response and re-dose PRN - daily weight, I&O #restrictive lung disease secondary to obesity #pulmonary emboli on Eliquis #supraventricular tachycardia (AVNRT since 06/2021) #paroxysmal A-fib (diagnosed on 10/20/2022), Eliquis Last taken at 7 pm on 06/13/23 - switch to heparin on admission. Restart eliquis 06/15 #Migraines - continue home nurtec - migraine cocktail PRN Fluids: per migraine cocktail Electrolytes: replete as above Diet: Daily Healthy Menu Choices/Cardiac diet ([facility]-Diet) DVT Prophlaxis: eliquis Code status: Attempt Cardiopulmonary Resuscitation - Inpatient Disposition: Discharge Planning: AM-PAC Basic Mobility Raw Score: 24 PT: OT: PCP JOCY Franco [phone] * Calista Hernandez RT - 06/17/2023 4:36 AM EDT Respiratory Therapy NIV Note NIV Settings: NIV Mode: CPAP PEEP/CPAP (cm H2O): 12 cm H20 FiO2 (%): 21 % O2 Bleed In (LPM): 0 L/min NIV Measurements: Resp: 18 Mve: 8.9 Leak (L/min): 14 L/min Vte: 765 SpO2: 98 % Skin Assessment: NIV Skin Assessment WDL: WDL Mepilex Applied: No Nares Assessment WDL: WDL Assessment: Patient placed on noc NIV settings noted above to rest overnight. Plan: Continue to support patient Calista RT Elieser * Eufemia Copeland MD - 06/16/2023 3:25 PM EDT [facility]PITALIST 2 - [facility] DAILY PROGRESS NOTE Page [phone] to reach a provider 28/09 Admit Date: 06/14/2023 Encounter Date June 16, 2023 Anticipated Discharge Date: 06/18/2023 Hospital Day: 2 Active Hospital Problems Diagnosis NSTEMI (non-ST elevated myocardial infarction) Resolved Hospital Problems No resolved problems to display. 24 Hour Events/Subjective: - patient with 10/10 TAM in AM. Improved after migraine cocktail - discussed starting sertraline, patient agreeable - denies current chest pain, SOB, dizziness. Nausea only associated with migraine. Does report her belly feels like it has built up fluid. Medications: Scheduled Meds: sertraline 25 mg Oral Daily amLODIPine 2.5 mg Oral Daily atorvastatin 40 mg Oral QPM DULoxetine DR 60 mg Oral Daily rOPINIRole 2 mg Oral BID gabapentin 600 mg Oral Nightly melatonin 6 mg Oral Nightly topiramate 100 mg Oral Nightly spironolactone 25 mg Oral Daily rimegepant 75 mg Oral Daily pantoprazole EC 40 mg Oral Daily sodium chloride 0.9 % (flush) 5 mL Intravenous BID aspirin EC 81 mg Oral Daily isosorbide mononitrate CR 30 mg Oral QAM lidocaine 1 patch Transdermal Daily Continuous Infusions: lactated Ringers Stopped (06/16/23 1100) PRN Meds:.loratadine, nitroGLYcerin, sodium chloride 0.9 % (flush), lidocaine Objective: Last value Range last 24 hrs Temp: 37 ??C (98.6 ??F) Temp: [36.5 ??C (97.7 ??F)-37 ??C (98.6 ??F)] Heart Rate: 58 Heart Rate: [51-79] BP: 111/57 BP: (93-115)/(48-66) Resp: 16 Resp: [14-16] SpO2: 97 % SpO2: [94 %-99 %] Height: 162.6 cm (5' 4) Weight: 100.3 kg (221 lb 3.2 oz) BMI (Calculated): 38.14 BMI Classification: Obese Admit weight: 100.79 kg Patient Vitals for the past 168 hrs: Weight 06/16/23 0451 100.3 kg (221 lb 3.2 oz) 06/15/23 0509 100.7 kg (222 lb) 06/14/23 2308 100.8 kg (222 lb 3.2 oz) Intake/Output Summary (Last 24 hours) at 06/16/2023 1819 Last data filed at 06/16/2023 1752 Gross per 24 hour Intake 1331.4 ml Output 3300 ml Net -1968.6 ml Physical Exam: Physical Exam Constitutional: Comments: Patient in mild distress in AM, improved to no distress after migraine cocktail HENT: Mouth/Throat: Mouth: Mucous membranes are moist. Eyes: Pupils: Pupils are equal, round, and reactive to light. Cardiovascular: Rate and Rhythm: Normal rate and regular rhythm. Pulmonary: Effort: Pulmonary effort is normal. Breath sounds: Normal breath sounds. Abdominal: General: There is no distension. Palpations: Abdomen is soft. Tenderness: There is no abdominal tenderness. There is no guarding or rebound. Musculoskeletal: Cervical back: Neck supple. No rigidity. Right lower leg: No edema. Left lower leg: No edema. Skin: General: Skin is warm and dry. Neurological: General: No focal deficit present. Mental Status: She is alert. Cranial Nerves: No cranial nerve deficit. Labs: Recent Labs 06/16/23 0330 06/15/23 0428 WBC 8.2 6.7 HGB 14.5 16.1* HCT 42.7 48.2* PLATELET 260 253 MCV 91.0 94.7* Recent Labs 06/16/23 1429 06/16/23 0901 06/16/23 0330 06/15/23 2133 06/15/23 1747 06/15/23 0818 06/15/23 0428 NA 135 136 135 135 134* < > 134* CL 96* 91* 90* 92* 89* < > 90* CO2 26 32* 33* 31 29 < > 28 K 3.9 2.9* 2.7* 3.1* 2.9* < > 2.7* MAGNESIUM -- -- 1.09* -- 1.10* -- 1.22* PHOS -- -- -- -- -- -- 4.4 CALCIUM 9.3 9.7 9.2 9.4 9.1 < > 9.7 9.7 BUN 25* 27* 28* 29* 29* < > 30* CREATININE 1.27* 1.27* 1.20 1.38* 1.20 < > 1.24* < > = values in this interval not displayed. Coags Recent Labs 06/15/23 0428 INR 1.1 PT 12.7* Cardiac Markers Recent Labs 06/15/23 0818 06/15/23 0428 TROPONINTHS 33* 34* PROBNP -- 1,953* Endocrine Recent Labs 06/15/23 0428 04/18/23 0210 04/17/23 0333 02/08/23 2208 09/27/22 0307 TSH 2.98 -- 5.93* 4.00 -- HA1C -- 5.6 -- -- 5.6 Recent Labs 06/16/23 0330 CHLPL 190 TRIG 126 HDL 50 LDLCHOL 115 Recent Labs 06/16/23 1429 06/16/23 0901 06/16/23 0330 GLUCOSE 175 148 110 Telemetry: I have personally reviewed and interpreted the telemetry from the last 24 hours. Resultsshow sinus/sinus morgan, HR 50s-90s, PACs. Imaging: No results found for this visit on 06/14/23 (from the past 24 hour(s)). Assessment: Loida Roque is a 53 y.o. 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 Tovar, paroxysmal A-fib (diagnosed on 10/20/2022), HFpEF, pulmonary emboli on Eliquis, and restrictive lung disease secondary to obesity who presented to OSH with chest pain. Patient has recently undergone extensive workup for ACS that has been unrevealing. 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 The patient current presentation is different with positive cardiac markers. Patient transferred to [facility] for further work-up and evaluation. On arrival, patient does appear to be volume overloaded. Cardiology consulted for MINOCA, and rec diuresis. Course c/b profound hypokalemia (K 2.9 on arrival) requiring aggressive repletion. Plan: #NSTEMI, likely type II #C/f MINOCA - ASA 81mg PO daily - continue Atorvastatin 40mg PO daily, check lipid panel - NTG PRN chest pain or NTG drip if ongoing chest pain - Cardiology consulted - IV diuresis - consider Utox - negative - consider Imdur - r/o arrhythmic contribution with zio on discharge - consider starting sertraline > patient agreeable. Will start 25mg daily #Decompensated HFpEF, - IV lasix 40 given today - HOLD home torsemide - assess response and re-dose PRN - daily weight, I&O #restrictive lung disease secondary to obesity #pulmonary emboli on Eliquis #supraventricular tachycardia (AVNRT since 06/2021) #paroxysmal A-fib (diagnosed on 10/20/2022), Eliquis Last taken at 7 pm on 06/13/23 - switch to heparin on admission. Restart eliquis 06/15 #Migraines - continue home nurtec - migraine cocktail PRN Fluids: per migraine cocktail Electrolytes: replete as above Diet: Daily Healthy Menu Choices/Cardiac diet ([facility]-Diet) DVT Prophlaxis: eliquis Code status: Attempt Cardiopulmonary Resuscitation - Inpatient Disposition: Discharge Planning: AM-PAC Basic Mobility Raw Score: 24 PT: OT: PCP JOCY Franco [phone] documented in this encounter H&P Notes * Porsha San MD - 07/07/2023 6:00 AM EDT Gastroenterology and Hepatology Pre-Procedure History and Physical Exam Procedure: EGD: Colonoscopy: Indication: abd pain, burning, epigastric pain, altered bowel habits Patient Active Problem List Diagnosis Code Asthma [...] R20.2 NSTEMI (non-ST elevated myocardial infarction) I21.4 EXAM: HEENT: Airway examined, oropharynx clear Mallampati Score: II (soft palate, uvula, fauces visible) LUNGS: Clear to auscultation HEART: Regular rate and rhythm, normal S1, S2 ABDOMEN: Normal bowel sounds, soft, non tender, non distended A/P: Proceed with the planned endoscopic procedure. ASA 3 - Patient with moderate systemic disease with functional limitations Sedation Plan: anesthesia Risks and benefits of the procedure explained to the patient. Consent form signed and included in the patient's chart. Porsha San PGY-5, Gastroenterology * Terrence Keating MD - 06/15/2023 12:19 AM EDT Cardiology Admission H&P Patient Name: Loida Roque Date of : 1970 Age: 53 y.o. Hospital Admit Date: 06/14/2023 Inpatient Attending: Jaspreet Kinsey MD PCP: JOCY Franco Presenting Diagnosis/Chief Complaint: Chest pain. Active Problem List: There are no hospital problems to display for this patient. ESTEFANÍA Roque is a 53 y.o. female with hx of mild nonobstructive mid LAD ASCVD on CCTA 09/2022,remote cardiac catheterization with normal coronaries 08/2019, supraventricular tachycardia (AVNRT since 06/2021) s/p EPS and SVT ablation on 04/01/[address] Tovar, paroxysmal A-fib (diagnosed on 10/20/2022), HFpEF, pulmonary emboli on Eliquis, and restrictive lung disease secondary to obesity who presents with chest pain. The patient was recently admitted at [facility] from 04/16/23 to 04/19/2023 as a transfer from [facility] due to exertional chest pressure and breathlessness. Patient had positive troponin but flat, nonspecific EKG changes, elevated BNP. TTE on 04/17 showed progressing anterolateral motion normalities, preserved EF. She underwent left heart cath on 04/18 showed nonobstructive ASCVD. She was started on amlodipine2.5 mg daily for possible microvascular disease. 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 The patient underwent outpatient stress PET CT on 04/30/23 that showed no evidence of active myocardial inflammation but revealed a myocardial scar. The patient saw Dr. Hoang 05/10/23, and since she has no significant epicardial CAD, no sarcoid, and no concomitant arrhythmias, a comprehensive assessment was pursued, with the anticipation of referral to Dr. Salazar, a MINOCA expert, if workup unrevealing. Patient presented to the ED with malaise over the last week, evolving into severe chest pain, diaphoresis, shortness of breath over the last two days. The symptoms have been constant and worse with deep breathing. At OSH Vitals: HD EKG:HR 68, sinus rhythm with PACs, anterolateral ST depressions (c/w prior EKGs during chest pain episodes). Labs WBC WNL, proBNP 3800, and potassium 2.2 (being repleted). Troponin was markedly elevated > 800 (ULN 60). POCUS showed no effusion. Chest CTA showed no evidence of PE, but did show diffuse bilateral and symmetrical GG marking throughout both lung teran. Interventions: -Low dose NTG infusion -heparin infusion without bolus (on apixaban). Given her ongoing chest pain, markedly elevated troponin and proBNP without explanation for non-cardiac etiology, patient was accepted for transfer to [facility]. Past Medical History: Past Medical History: Diagnosis Date Asthma Bilateral carpal tunnel syndrome 03/18/2023 Bilateral renal artery stenosis 03/18/2023 Depression Endometriosis S/p hysterectomy GERD (gastroesophageal reflux disease) 03/18/2023 Hx of supraventricular tachycardia 03/18/2023 Infiltrate of lower lobe of left lung present on imaging study 03/18/2023 Insomnia Left facial numbness 03/18/2023 Left lateral epicondylitis 03/18/2023 Left wrist pain 03/18/2023 Migraine Obesity (BMI 30-39.9) MARYLOU on CPAP Seasonal allergies Surgical History/Problems: Past Surgical History: Procedure Laterality Date HYSTERECTOMY Significant Family History: Family History Problem Relation Age of Onset Hypertension Mother Arrhythmia Father Heart Surgery Father Myocardial Infarction Father Coronary Artery Disease Father Social History: Social History Socioeconomic History Marital status: Spouse name: Not on file Number of children: Not on file Years of education: Not on file Highest education level: Not on file Occupational History Not on file Tobacco Use Smoking status: Never Smokeless tobacco: Never Vaping Use Vaping Use: Never used Substance and Sexual Activity Alcohol use: Never Drug use: Never Sexual activity: Yes Other Topics Concern Not on file 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 , 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 Lives in [facility] Social Determinants of Health Financial Resource Strain: Not on file Food Insecurity: Food Insecurity Present (04/19/2023) Hunger Vital Sign Worried About Running Out of Food in the Last Year: Never true Ran Out of Food in the Last Year: Sometimes true Transportation Needs: Unmet Transportation Needs (04/19/2023) PRAPARE - Transportation Lack of Transportation (Medical): Yes Lack of Transportation (Non-Medical): Yes Physical Activity: Not on file Intimate Partner Violence: Not At Risk (06/14/2023) IPV Inpatient Questions Prevent Contact with Others: no Feels Threatened by Someone: no Feels Unsafe at Home: no Physical Signs of Abuse Present: no Housing Stability: High Risk (04/19/2023) Housing Stability Vital Sign Unable to Pay for Housing in the Last Year: Yes Number of Places Lived in the Last Year: 1 Unstable Housing in the Last Year: No REVIEW OF SYSTEMS: Review of Systems as per HPI but otherwise negative. Medications: Medications Prior to Admission Medication Sig Dispense Refill Last Dose metOLazone (Zaroxolyn) 2.5 mg tablet Take 1 tablet by mouth as needed (take daily for weight gain +increasing shortness of breath. take 30-60 minutes prior to a dose of torsemide). 30 tablet 0 rimegepant (Nurtec ODT) 75 mg disintegrating tablet Take 75 mg by mouth daily. torsemide (Demadex) 20 mg tablet Take 2 tablets by mouth 2 times daily. atorvastatin (Lipitor) 40 mg tablet Take 1 tablet by mouth every evening. (Patient taking differently: Take 40 mg by mouth 2 times daily.) 90 tablet 3 nitroGLYcerin (Nitrostat) 0.[address] [...] as needed. fluticasone propionate (FLONASE) 50 mcg/actuation [place], Suspension 1 spray by Each Nare route [...] extremities Clobetasol Rash Other reaction(s): Skin Rash PHYSICAL EXAM: Last set of vital signs: BP 133/69 (BP Location (NBP): Right arm, Patient Position: Lying) Pulse 59 Temp 36.7 ??C (98 ??F) Resp 18 Ht 162.6 cm (5' 4) Wt 100.8 kg (222 lb 3.2 oz) SpO2 96% BMI 38.14 kg/m?? General Appearance: No acute distress, lying in bed, HEENT: anicteric, mucous membranes moist Neck: Supple, no JVD Lungs: Clear to auscultation bilaterally. No wheezes/rhonchi/rales. No accessory muscle usage. Cardiac: irregular rate and rhythm. No murmurs, rubs or gallops. Abdomen: Soft, non-tender, non-distended. Normo-active bowel sounds. No organomegaly or masses noted Extremities: No edema. 2+ DP pulses. Neuro: Alert and oriented. Grossly non-focal. Conversant, moving all extremities. Skin: No rashes or lesions noted. ASSESSMENT and PLAN: Loida Roque is a 53 y.o. female with hx of mild nonobstructive mid LAD ASCVD on CCTA 09/2022,remote cardiac catheterization with normal coronaries 08/2019, supraventricular tachycardia (AVNRT since 06/2021) s/p EPS and SVT ablation on 04/01/[address] Tovar, paroxysmal A-fib (diagnosed on 10/20/2022), HFpEF, pulmonary emboli on Eliquis, and restrictive lung disease secondary to obesity who presents with chest pain. Patient has recently undergone extensive workup for ACS that has been unrevealing. 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 The patient current presentation is different with positive cardiac markers. Will admit and have a discussion with general cardiology in the am regarding ischemic radha and furtherworkup. #NSTEMI - EKG and troponin - ASA 81mg PO daily - Atorvastatin 80mg PO daily, check lipid panel - Consider Beta-tiffanie: Metoprolol 12.5mg PO bid (titrate to goal HR<70) (Hold if SBP<90 / cardiogenic shock) (Beware may actually worsen near-term mortality from shock, especially if use IV. Start prior to discharge) - NTG PRN chest pain or NTG drip if ongoing chest pain (Hold if hypotensive / cardiogenic shock / inferior NE / sildenafil within past 24 hours) - Anti-coagulation (Heparin drip per ACS protocol) - Card consult in the am - Keep NPO pending decions on further workup tomorrow. #compensated HFpEF, - continue torsemide 40 mg bid. - continue prn metolazone for weight gain. - daily weight, I&O #restrictive lung disease secondary to obesity #pulmonary emboli on Eliquis #supraventricular tachycardia (AVNRT since 06/2021) #paroxysmal A-fib (diagnosed on 10/20/2022), Eliquis Last taken at 7 pm on 06/13/23 - switch to heparin Full code Dvt ppx with heparin gtt. Terrence Keating MD 06/15/2023 documented in this encounter Miscellaneous Notes * Care Management Discharge - Nani Mendoza RN - 07/09/2023 1:40 PM EDT CARE MANAGEMENT FINAL DISCHARGE NOTE Chart reviewed, care reviewed with primary team and at interdisciplinary rounds. Patient is medically ready for discharge to home with family support, [facility] for RN and OP Cardi clinic for f/u. Needs for Transition of Care: Plan for discharge is: Home w/ Services Outpatient Agency/Support Group Needs: None Home Health Services: Registered Nurse Agency Referrals & Follow-up Care: Contact information for follow-up Home Health & Hospice, [facility] [address] [place] [address] Transportation: taxi voucher -Ride confirmed entrance #2 at 4pm today. Functional status prior to admission: Independent Home Environment: Others in the home: spouse (Mother lives close by). Current Living Arrangements: home/apartment/condo. Accessibility Concerns:Has 5 steps but also has a ramp / her bedroom is upstairs in her two level home. Current Functional Ability: Independent DME used at home: other (see comments) (Has CPAP provided through [facility]) DME Needed at Discharge: none Patient is insured through: Primary Insurance: [place] Payor: [employer] [place] / Plan[place] / Product Type: *No Product type* / Secondary Insurance: N/A Prescription Coverage: Yes This plan was formulated with input from patient, (please identify family/friend involved if applicable) and team. All are in agreement with plan. Nnai Mendoza MSN-Ed, RN ACM Cardiac Research Nurse and Neuro/Neurocrit/ENT Interim Controller. * Care Management - Dixie Patterson - 07/09/2023 1:38 PM EDT Transportation for discharge was scheduled and confirmed through [employer]. [employer] will have a line haul truck driver here at entrance #2 @4pm to bring patient home. OCM Managers aware of transportation or medication requirements for discharge. * Plan of Care - Machelle Busch RN - 07/09/2023 2:26 AM EDTSummary: Night Summary OUTCOME EVALUATION NOTE: OUTCOME SUMMARY: Loida Roque was admitted for abdominal and chest pain. Today, A&Ox4, VSS on RA - BiPAP while sleeping, NSR/SB. RT adjusted BiPAP settings, pt aware and able to make changes with home BiPAP. Replaced K. Pt is not displaying any signs or symptoms of distress. Heparin gtt 1050 units/hr - therapeutic PLAN MOVING FORWARD: AM UFH Possible discharge today C[facility] GOAL OUTCOME EVALUATION: Problem: Adult Inpatient [...] Outcome: Ongoing (Interventions Implemented as Appropriate) Problem: Fall Injury Risk Goal: Absence of Fall and Fall-Related Injury Outcome: Ongoing (Interventions Implemented as Appropriate) Problem: Infection Goal: Absence of Infection Signs and Symptoms Outcome: Ongoing (Interventions Implemented as Appropriate) Problem: Fluid Imbalance (Heart Failure) Goal: Fluid Balance Outcome: Ongoing (Interventions Implemented as Appropriate) Problem: Respiratory Compromise (Heart Failure) Goal: Effective Oxygenation and Ventilation Outcome: Ongoing (Interventions Implemented as Appropriate) * Plan of Care - Lorena Torres RN - 07/08/2023 5:08 AM EDT OUTCOME EVALUATION NOTE: OUTCOME SUMMARY: Pt continued to have some nausea and abd pain in the evening. Medicated with some relief. Bipap in place overnight. Tolerated well. Rested well between care. Heparin drip infusing. Up to BR independently. Call light in reach. Continue to monitor PLAN MOVING FORWARD: Med manage Discharge planning INDIVIDUALIZED FALL PREVENTION INTERVENTIONS: Patient-specific fall risk factors per assessment: [current deficits]: tubing, wires Assistance [level of assistance required for transfers and ambulation]: sba Supervision [direct monitoring required during toileting and ADLs]: independent Surveillance [continuous indirect monitoring]: hourly rounding, telemetry, oximetry Patient-specific fall prevention interventions for sensory deficits provided, if applicable: [X] N/A CPG GOAL OUTCOME EVALUATION: Problem: Adult Inpatient [...] Care Outcome: Ongoing (Interventions Implemented as Appropriate) * Consult Note - Gauri Vega MD - 07/07/2023 9:30 AM EDT Vascular Surgery Inpatient Consultation History of Present Illness: Loida Roque is a 53 y.o. female with non obstructive CAD (s/p cath 08/2019 with normal coronaries, cath 04/2023 with non obstructive CAD), SVT (s/p ablation), paroxysmal afib, HFpEF, pulmonary emboli (on Eliquis) who was admitted with chest and abdominal pain. The patient has undergone extensive workup for ACS and volume overload. She is being diuresed. She underwent a CT A/P for her abdominal pain which showed concern for SMA stenosis, for which vascular surgery is being consulted. Interval: - Patient states abdominal pain is slightly improved, although was awake overnight due to prep for colonoscopy today with GI - Denies any right leg pain at this time Physical Exam: Vital Signs: Temp: [36.4 ??C (97.6 ??F)-36.9 ??C (98.4 ??F)] Heart Rate: [46-58] Resp: [16-20] BP: (101-119)/(59-70) SpO2: [96 %-100 %] Heart Rate from SpO2: [48 bpm-51 bpm] BMI: Weight: 100.8 kg (222 lb 4.8 oz) BMI (Calculated): 38.14 BMI Classification: Obese General: alert, cooperative, NAD, resting comfortably HEENT: normocephalic, atraumatic CVS: Bradycardic Pulm: Breathing comfortably on RA Abd: Mildly tender to palpation, non distended Ext: Palpable DP/PT bilaterally. Right femoral access site with no evidence of hematoma or surrounding erythema Neuro: Grossly nonfocal, moving all extremities. Labs: Last 3 wbc, hgb, hct plt Recent Labs 07/07/23 0351 07/06/23 0354 07/05/23 0505 WBC 7.9 7.7 8.9 HGB 13.8 14.7 13.7 HCT 41.0 43.8 41.4 PLATELET 255 243 245 Last 3 Lytes Recent Labs 07/07/23 0351 07/06/23 0354 07/05/23 1744 NA 135 135 134* K 3.5 3.9 3.7 CL 96* 98 98 CO2 23 23 21* BUN 18 16 17 CREATININE 1.30* 1.25* 1.30* Last 3 Coags No results for input(s): PT, INR, PTT in the last 168 hours. Vascular Imaging: CT Abdomen Pelvis: IMPRESSION 1. No acute process in the abdomen or pelvis. 2. Severe stenosis of the proximal SMA. 3. Bibasilar groundglass opacities, favored atelectasis given dependent predilection, however, a superimposed infectious/inflammatory process or alveolar edema is not excluded. Mesenteric Duplex Findings: Unilateral Waveform PSV cm/s EDV cm/s Patent Dary Visceral Aorta 80 16 Celiac Artery, Proximal [place]-Biphasic 119 26 Celiac Artery, Mid [place]-Biphasic 115 21 Celiac Artery, Distal No Vis Sup Mes Artery Proximal Biphasic 427 91 Sup Mes Artery Middle [place]-Biphasic 100 17 Sup Mes Artery Distal [place]-Biphasic 64 15 Hepatic Artery No Vis Splenic Artery No Vis Inf Mes Artery No Vis Interpretation: Patent superior mesenteric artery with elevated velocities consistent with 50% or greater stenosis in the proximal segment. Patent proximal to mid celiac artery with no evidence of significant stenosis. Due to overlying bowel gas unable to visualize hepatic, splenic, inferior mesenteric, and distal celiac arteries cannot exclude elevated velocities/ stenosis here. Arterial Duplex 07/03/23: Findings: Right PSV (cm/s) EDV Common Femoral Artery, Proximal 118 16 Common Femoral Artery, Mid 88 9 Common femoral artery, Distal 97 12 Profunda Femoris Artery, Proximal 70 5 Superficial Femoral Artery, Proximal 120 0 Interpretation: RIGHT: Patent common femoral, proximal profunda [...] in our vascular lab database for comparison. EKG/Echo/Cath: Echo 06/22/23: Normal left ventricle size with mildly reduced LV systolic function. Mild global hypokinesis. LV ejection fraction is approximately 50%. Normal right ventricle. No significant valvular abnormalities. On comparison to the prior echo dated 04/17/2023, there has been a slight decrease in LV systolic function. Assessment: Loida Roque is a 53 y.o. female admitted with chest and abdominal pain. Her cardiac issues are being managed by cardiology and the cardiac hospitalist. The patient underwent a mesenteric duplex with placement of an SMA stent, however, her abdominal pain has returned. Based on the carotid duplex, the patient's stent is open, and her abdominal pain is not caused by mesenteric ischemia. Recommend evaluation of other causes of abdominal pain. Recommendation: - Consider alternate causes for abdominal pain, patient undergoing EGD and colonoscopy today - Patient can continue on heparin drip, from vascular surgery perspective, recommend plavix and anticoagulation on discharge (no ASA) -Will arrange for follow-up in 4 weeks with mesenteric duplex, follow up currently scheduled on 08/02 Vascular surgery will sign off at this time, please page [phone] with any questions or concerns. Discussed with Dr. Kamara. Gauri Vega MD 07/07/2023 9:30 AM * Consult Note - Gauri Vega MD - 07/06/2023 5:01 PM EDT Vascular Surgery Inpatient Consultation History of Present Illness: Loida Roque is a 53 y.o. female with non obstructive CAD (s/p cath 08/2019 with normal coronaries, cath 04/2023 with non obstructive CAD), SVT (s/p ablation), paroxysmal afib, HFpEF, pulmonary emboli (on Eliquis) who was admitted with chest and abdominal pain. The patient has undergone extensive workup for ACS and volume overload. She is being diuresed. She underwent a CT A/P for her abdominal pain which showed concern for SMA stenosis, for which vascular surgery is being consulted. Interval: - Underwent mesenteric angiogram and stent placement Wednesday - Patient continues to have abdominal pain and food fear, was only able to eat half a sandwich and a muffin yesterday - Mesenteric duplex revealed stent is patent - Leg pain is improved Physical Exam: Vital Signs: Temp: [36.4 ??C (97.5 ??F)-37.2 ??C (98.9 ??F)] Heart Rate: [45-57] Resp: [16-21] BP: (101-115)/(58-68) SpO2: [96 %-98 %] Heart Rate from SpO2: [43 bpm-51 bpm] BMI: Weight: 100.2 kg (220 lb 12.8 oz) BMI (Calculated): 38.14 BMI Classification: Obese General: alert, cooperative, NAD, resting comfortably HEENT: normocephalic, atraumatic CVS: Bradycardic Pulm: Breathing comfortably on RA Abd: Mildly tender to palpation, non distended Ext: Palpable DP/PT bilaterally. Right femoral access site with no evidence of hematoma or surrounding erythema Neuro: Grossly nonfocal, moving all extremities. Labs: Last 3 wbc, hgb, hct plt Recent Labs 07/06/23 0354 07/05/23 0505 07/04/23 0347 WBC 7.7 8.9 8.2 HGB 14.7 13.7 13.5 HCT 43.8 41.4 40.0 PLATELET 243 245 219 Last 3 Lytes Recent Labs 07/06/23 0354 07/05/23 1744 07/05/23 0505 NA 135 134* 134* K 3.9 3.7 3.8 CL 98 98 97* CO2 23 21* 25 BUN 16 17 19* CREATININE 1.25* 1.30* 1.51* Last 3 Coags No results for input(s): PT, INR, PTT in the last 168 hours. Vascular Imaging: CT Abdomen Pelvis: IMPRESSION 1. No acute process in the abdomen or pelvis. 2. Severe stenosis of the proximal SMA. 3. Bibasilar groundglass opacities, favored atelectasis given dependent predilection, however, a superimposed infectious/inflammatory process or alveolar edema is not excluded. Mesenteric Duplex Findings: Unilateral Waveform PSV cm/s EDV cm/s Patent Dary Visceral Aorta 80 16 Celiac Artery, Proximal [place]-Biphasic 119 26 Celiac Artery, Mid [place]-Biphasic 115 21 Celiac Artery, Distal No Vis Sup Mes Artery Proximal Biphasic 427 91 Sup Mes Artery Middle [place]-Biphasic 100 17 Sup Mes Artery Distal [place]-Biphasic 64 15 Hepatic Artery No Vis Splenic Artery No Vis Inf Mes Artery No Vis Interpretation: Patent superior mesenteric artery with elevated velocities consistent with 50% or greater stenosis in the proximal segment. Patent proximal to mid celiac artery with no evidence of significant stenosis. Due to overlying bowel gas unable to visualize hepatic, splenic, inferior mesenteric, and distal celiac arteries cannot exclude elevated velocities/ stenosis here. Arterial Duplex 07/03/23: Findings: Right PSV (cm/s) EDV Common Femoral Artery, Proximal 118 16 Common Femoral Artery, Mid 88 9 Common femoral artery, Distal 97 12 Profunda Femoris Artery, Proximal 70 5 Superficial Femoral Artery, Proximal 120 0 Interpretation: RIGHT: Patent common femoral, proximal profunda [...] in our vascular lab database for comparison. EKG/Echo/Cath: Echo 06/22/23: Normal left ventricle size with mildly reduced LV systolic function. Mild global hypokinesis. LV ejection fraction is approximately 50%. Normal right ventricle. No significant valvular abnormalities. On comparison to the prior echo dated 04/17/2023, there has been a slight decrease in LV systolic function. Assessment: Loida Roque is a 53 y.o. female admitted with chest and abdominal pain. Her cardiac issues are being managed by cardiology and the cardiac hospitalist. The patient underwent a mesenteric duplex with placement of an SMA stent, however, her abdominal pain has returned. Based on the carotid duplex, the patient's stent is open, and her abdominal pain is not caused by mesenteric ischemia. Recommend evaluation of other causes of abdominal pain. Recommendation: - Consider alternate causes for abdominal pain, could consider EGD/GI consult - Patient can continue on heparin drip, from vascular surgery perspective, recommend plavix and anticoagulation on discharge (no ASA) -Will arrange for follow-up in 4 weeks with mesenteric duplex Discussed with Dr. Kamara. Please page [phone] with any questions or concerns. Gauri Vega MD 07/06/2023 5:01 PM Associated attestation - Carlota Kamara MD - 07/06/2023 5:19 PM EDT I evaluated patient yesterday AM Noted worsening abdominal pain yesterday on AM on exam Mildly tender diffusely Mesenteric duplex ordered confirming widely patent SMA stent without stenosis. Continue plavix. At this time her mesenteric vessels all widely patent and pain not caused by mesenteric ischemia. Recommend evaluation of other causes of abdominal pain. Consider GI consultation forpossible endoscopy. Carlota Kamara MD * Consult Note - Sis Keenan MD - 07/06/2023 12:51 PM EDT GASTROENTEROLOGY & HEPATOLOGY CONSULTATION Initial Consult Note Requesting Provider: Terrence Keating MD REASON FOR CONSULTATION Abdominal pain HISTORY OF PRESENT ILLNESS Loida Roque is a 53 y.o. 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 Patient's abdominal pain continues despite SMA stenting, prompting GI consultation for further evaluation and management. Patient endorses 10/10 abdominal pain similar to her pain before SMA stenting. She states the pain is worse with eating. States that her pain originally started about a year ago and has been intermittent but has worsened over the last month. Pain localizes to her left and right lower quadrants and is associated with nausea and early satiety. She also notes recent loose stools over the last several weeks. Her workup was notable for a CT A/P on 06/20 that demonstrated severe stenosis of the proximal SMA but otherwise was negative for any acute process in the abdomen or pelvis. Right upper quadrant ultrasound on 06/27 demonstrated normal gallbladder without cholelithiasis, normal bile duct diameter. Lipase was normal yesterday, LFTs pending today. Patient denies any nausea or diarrhea currently. ROS: 10 systems reviewed and positive for those in HPI, otherwise negative PAST MEDICAL/SURGICAL HISTORY: Past Medical History: Diagnosis Date Asthma Bilateral carpal tunnel syndrome 03/18/2023 Bilateral renal artery stenosis 03/18/2023 Depression Endometriosis S/p hysterectomy GERD (gastroesophageal reflux disease) 03/18/2023 Hx of supraventricular tachycardia 03/18/2023 Infiltrate of lower lobe of left lung present on imaging study 03/18/2023 Insomnia Left facial numbness 03/18/2023 Left lateral epicondylitis 03/18/2023 Left wrist pain 03/18/2023 Migraine Obesity (BMI 30-39.9) MARYLOU on CPAP Seasonal allergies MEDICATIONS lidocaine 1 patch Transdermal Q24H clopidogreL 75 mg Oral Daily ranolazine ER 1,000 mg Oral BID rimegepant 75 mg Oral Q48H metoprolol succinate XL 12.5 mg Oral Daily senna-docusate 2 tablet Oral BID polyethylene glycoL (MIRALAX) oral powder 17 g Oral Daily amLODIPine 2.5 mg Oral Daily atorvastatin 40 mg Oral QPM DULoxetine DR 60 mg Oral Daily rOPINIRole 2 mg Oral BID gabapentin 600 mg Oral Nightly melatonin 6 mg Oral Nightly topiramate 100 mg Oral Nightly spironolactone 25 mg Oral Daily pantoprazole EC 40 mg Oral Daily sodium chloride 0.9 % (flush) 5 mL Intravenous BID heparin (porcine) infusion 850 Units/hr (07/05/232025) oxyCODONE-acetaminophen, acetaminophen, albuteroL, ondansetron, heparin (porcine) infusion AND heparin (porcine), nitroGLYcerin, simethicone, loratadine, sodium chloride 0.9 % (flush), lidocaine ALLERGIES Allergies Allergen Reactions Codeine Other (See Comments) Per pt it causes severe jittery and uncomfortable feeling Acetaminophen Other (See Comments) Makes her jittery, feel weird and cause swelling in upper/lower extremities Clobetasol Rash Other reaction(s): Skin Rash SOCIAL HISTORY Social History Socioeconomic History Marital status: Spouse name: Not on file Number of children: Not on file Years of education: Not on file Highest education level: Not on file Occupational History Not on file Tobacco Use Smoking status: Never Smokeless tobacco: Never Vaping Use Vaping Use: Never used Substance and Sexual Activity Alcohol use: Never Drug use: Never Sexual activity: Yes Other Topics Concern Not on file 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 , 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 Lives in [facility] Social Determinants of Health Financial Resource [...] file Intimate Partner Violence: Not At Risk (06/14/2023) IPV Inpatient Questions Prevent Contact with Others: no Feels Threatened by Someone: no Feels Unsafe at Home: no Physical Signs of Abuse Present: no Housing Stability: High Risk (06/15/2023) Housing Stability Vital Sign Unable to Pay for Housing in the Last Year: Yes Number of Places Lived in the Last Year: 1 Unstable Housing in the Last Year: No FAMILY HISTORY Family History Problem Relation Age of Onset Hypertension Mother Arrhythmia Father Heart Surgery Father Myocardial Infarction Father Coronary Artery Disease Father Vitals: 07/06/23 0517 07/06/23 0539 07/06/23 0711 07/06/23 1131 BP: 110/66 101/59 BP Location (NBP): Left arm Left arm Patient Position: Lying Lying Pulse: 57 51 Resp: 17 18 Temp: 36.4 ??C (97.5 ??F) 36.6 ??C (97.8 ??F) TempSrc: Oral Oral SpO2: 96% 96% 97% Weight: 100.2 kg (220 lb 12.8 oz) Height: PHYSICAL EXAM GENERAL: No acute distress, alert and oriented HEENT: AT/NC, sclerae anicteric, moist mucous membranes CHEST: CTA CARDIAC: RRR, normal S1/S2, no appreciable murmurs ABDOMEN: Soft, normoactive bowel sounds, non-tender, non-distended EXT: Warm, no edema NEURO: Grossly intact, moves all extremities, no asterixis SKIN: No jaundice LABS: Lab Results Component Value Date Sodium 135 07/06/2023 Potassium 3.9 07/06/2023 Chloride 98 07/06/2023 CO2 23 07/06/2023 BUN 16 07/06/2023 Creatinine 1.25 (H) 07/06/2023 Glucose Lvl 107 07/06/2023 CBC Lab Results Component Value Date WBC 7.7 07/06/2023 Hemoglobin 14.7 07/06/2023 Hematocrit 43.8 07/06/2023 Platelets 243 07/06/2023 LFT's No results found for: ALKPHOS, AST, ALBUMIN, BILIDIR, BILITOT, ALT, PROT IMAGING: Reviewed in [facility] ENDOSCOPY: Reviewed in [facility] IMPRESSION: Loida Roque is a 53 y.o. 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 Patient's abdominal pain continues despite SMA stenting, prompting GI consultation for further evaluation and management. Etiology of patient's abdominal pain is unclear--was originally thought to be due to SMA stenosis, however, her pain has not improved with SMA stenting. Pancreatitis is unlikely given her normal lipase and lack of epigastric pain. Would recommend sending LFTs to further evaluate for any liver pathology, although her RUQ US from 06/27 was unremarkable. She reports her pain is post prandial in nature which could be suggestive of gastritis/peptic ulcer disease although patient has not had any melena to suggest GI bleeding. Given her ongoing symptoms, we will plan for EGD and colonoscopy tomorrow for further evaluation. RECOMMENDATIONS: -Follow-up LFTs -Recommend sending infectious stool studies: C. difficile, Giardia, Cryptosporidium, stool culture -N.p.o. past midnight for EGD + colonoscopy COLONOSCOPY PREP - Clear liquid diet (no red-colored products) now - 2L golytely to start at 6pm and finish by 8pm, then 2L more golytely at 11pm to finish by 1am. Ptto drink 12oz every 10-15 minutes until the intended volume is completed. If patient is nauseous, treat with zofran and put prep on ice to be sipped through straw. - After prep begins, diet should be NPO other than prep/meds with sips. At [place], patient should be strict NPO. The plan as outlined above was discussed with Dr. Villa. Recommendations were discussed with primary team. Sis Keenan M.D. Fellow in Gastroenterology and Hepatology Pager #[phone] 07/06/2023 Associated attestation - Lashonda Villa MD - 07/06/2023 8:14 PM EDT Attending Addendum: I interviewed and examined the patient with Dr. Keenan on rounds. I confirm the history and keyphysical findings outlined in this note. The assessment and plan were formulated in discussion withme at the time of this encounter, and I agree with them as documented. Lashonda Villa MD Gastroenterology and hepatology Pager: [phone] * Plan of Care - Olive Hernandez RN - 07/06/2023 6:15 AM EDT Problem: Adult Inpatient Plan of [...] Outcome: Ongoing (Interventions Implemented as Appropriate) Problem: Fall Injury Risk Goal: Absence of Fall and Fall-Related Injury Outcome: Ongoing (Interventions Implemented as Appropriate) Problem: Infection Goal: Absence of Infection Signs and Symptoms Outcome: Ongoing (Interventions Implemented as Appropriate) Problem: Fluid Imbalance (Heart Failure) Goal: Fluid Balance Outcome: Ongoing (Interventions Implemented as Appropriate) Problem: Respiratory Compromise (Heart Failure) Goal: Effective Oxygenation and Ventilation Outcome: Ongoing (Interventions Implemented as Appropriate) * Plan of Care - Olive Hernandez RN - 07/05/2023 5:04 AM EDT Problem: Adult Inpatient Plan of [...] Outcome: Ongoing (Interventions Implemented as Appropriate) Problem: Fall Injury Risk Goal: Absence of Fall and Fall-Related Injury Outcome: Ongoing (Interventions Implemented as Appropriate) Problem: Infection Goal: Absence of Infection Signs and Symptoms Outcome: Ongoing (Interventions Implemented as Appropriate) Problem: Fluid Imbalance (Heart Failure) Goal: Fluid Balance Outcome: Ongoing (Interventions Implemented as Appropriate) Problem: Respiratory Compromise (Heart Failure) Goal: Effective Oxygenation and Ventilation Outcome: Ongoing (Interventions Implemented as Appropriate) * Consult Note - Gauri Vega MD - 07/04/2023 11:38 AM EDT Vascular Surgery Inpatient Consultation History of Present Illness: Loida Roque is a 53 y.o. female with non obstructive CAD (s/p cath 08/2019 with normal coronaries, cath 04/2023 with non obstructive CAD), SVT (s/p ablation), paroxysmal afib, HFpEF, pulmonary emboli (on Eliquis) who was admitted with chest and abdominal pain. The patient has undergone extensive workup for ACS and volume overload. She is being diuresed. She underwent a CT A/P for her abdominal pain which showed concern for SMA stenosis, for which vascular surgery is being consulted. Interval: - Underwent mesenteric angiogram and stent placement Wednesday - Patient states that abdominal pain with eating has significantly improved -Due to right leg pain, patient underwent arterial duplex which did not reveal any pseudoaneurysm or hematoma. The patient did have some pulsatile flow in her femoral vein -Patient states that she continues to have pain in her right leg however this is primarily centeredaround her ankle, knee, and hip and she believes that it may be related to positioning in the operating room -Endorsing some worsening dyspnea when lying flat -Creatinine 1.28 from 1.37 Physical Exam: Vital Signs: Temp: [36.4 ??C (97.5 ??F)-37.3 ??C (99.2 ??F)] Heart Rate: [53-64] Resp: [18-20] BP: (100-118)/(54-69) SpO2: [84 %-98 %] Heart Rate from SpO2: [55 bpm-56 bpm] BMI: Weight: 102 kg (224 lb 12.8 oz) BMI (Calculated): 38.14 BMI Classification: Obese General: alert, cooperative, NAD, resting comfortably HEENT: normocephalic, atraumatic CVS: Bradycardic Pulm: Breathing comfortably on RA Abd: Mildly tender to palpation, non distended Ext: Palpable DP/PT bilaterally. Right femoral access site with no evidence of hematoma or surrounding erythema Neuro: Grossly nonfocal, moving all extremities. Labs: Last 3 wbc, hgb, hct plt Recent Labs 07/04/23 0347 07/03/23 0307 07/02/23 0358 WBC 8.2 8.2 7.6 HGB 13.5 12.5 12.9 HCT 40.0 38.5 39.5 PLATELET 219 203 200 Last 3 Lytes Recent Labs 07/04/23 0347 07/03/23 1800 07/03/23 0307 NA 139 137 138 K 3.8 4.1 4.2 CL 102 102 107 CO2 21* 21* 20* BUN 16 16 16 CREATININE 1.28* 1.37* 1.20 Last 3 Coags No results for input(s): PT, INR, PTT in the last 168 hours. Vascular Imaging: CT Abdomen Pelvis: IMPRESSION 1. No acute process in the abdomen or pelvis. 2. Severe stenosis of the proximal SMA. 3. Bibasilar groundglass opacities, favored atelectasis given dependent predilection, however, a superimposed infectious/inflammatory process or alveolar edema is not excluded. Mesenteric Duplex Findings: Unilateral Waveform PSV cm/s EDV cm/s Patent Dary Visceral Aorta 80 16 Celiac Artery, Proximal [place]-Biphasic 119 26 Celiac Artery, Mid [place]-Biphasic 115 21 Celiac Artery, Distal No Vis Sup Mes Artery Proximal Biphasic 427 91 Sup Mes Artery Middle [place]-Biphasic 100 17 Sup Mes Artery Distal [place]-Biphasic 64 15 Hepatic Artery No Vis Splenic Artery No Vis Inf Mes Artery No Vis Interpretation: Patent superior mesenteric artery with elevated velocities consistent with 50% or greater stenosis in the proximal segment. Patent proximal to mid celiac artery with no evidence of significant stenosis. Due to overlying bowel gas unable to visualize hepatic, splenic, inferior mesenteric, and distal celiac arteries cannot exclude elevated velocities/ stenosis here. Arterial Duplex 07/03/23: Findings: Right PSV (cm/s) EDV Common Femoral Artery, Proximal 118 16 Common Femoral Artery, Mid 88 9 Common femoral artery, Distal 97 12 Profunda Femoris Artery, Proximal 70 5 Superficial Femoral Artery, Proximal 120 0 Interpretation: RIGHT: Patent common femoral, proximal profunda [...] in our vascular lab database for comparison. EKG/Echo/Cath: Echo 06/22/23: Normal left ventricle size with mildly reduced LV systolic function. Mild global hypokinesis. LV ejection fraction is approximately 50%. Normal right ventricle. No significant valvular abnormalities. On comparison to the prior echo dated 04/17/2023, there has been a slight decrease in LV systolic function. Assessment: Loida Roque is a 53 y.o. female admitted with chest and abdominal pain. Her cardiac issues are being managed by cardiology and the cardiac hospitalist. The patient underwent a mesenteric duplex with placement of an SMA stent and this has improved her postprandial abdominal pain. She is endorsing some pain in her right leg radiating to her flank, however has no evidence of a pseudoaneurysm or hematoma in her groin and her hemoglobin and vascular exam remains stable. She was noted to have some pulsatile flow in her femoral vein with no evidence of an AV fistula, this is mostlikely related to her heart failure and does not appear to be an access site complication. Recommendation: - Patient can continue on heparin drip, from vascular surgery perspective, recommend plavix and anticoagulation on discharge (no ASA) -Will arrange for follow-up in 4 weeks with mesenteric duplex Discussed with Dr. Kamara. Please page [phone] with any questions or concerns. Gauri Vega MD 07/04/2023 11:38 AM Associated attestation - Carlota Kamara MD - 07/06/2023 8:48 AM EDT I have seen and examined the patient, providing chavis components as outlined below. I have reviewed the resident???s above note; my evaluation of the patient is below: Worsening abdominal pain in AM on exam Mildly tender diffusely Mesenteric duplex ordered confirming widely patent SMA stent Continue plavix. At this time her mesenteric vessels all widely patent and pain not caused by mesenteric ischemia. Recommend evaluation of other causes of abdominal pain. Consider GI consultation forpossible endoscopy. Carlota Kamara MD * Plan of Care - Olive Hernandez RN - 07/03/2023 10:30 PM EDT Problem: Adult Inpatient Plan of [...] Outcome: Ongoing (Interventions Implemented as Appropriate) Problem: Fall Injury Risk Goal: Absence of Fall and Fall-Related Injury Outcome: Ongoing (Interventions Implemented as Appropriate) Problem: Infection Goal: Absence of Infection Signs and Symptoms Outcome: Ongoing (Interventions Implemented as Appropriate) Problem: Fluid Imbalance (Heart Failure) Goal: Fluid Balance Outcome: Ongoing (Interventions Implemented as Appropriate) Problem: Respiratory Compromise (Heart Failure) Goal: Effective Oxygenation and Ventilation Outcome: Ongoing (Interventions Implemented as Appropriate) * Plan of Care - Charu Torres RN - 07/03/2023 6:25 PM EDT Problem: Adult Inpatient Plan of [...] Outcome: Ongoing (Interventions Implemented as Appropriate) Problem: Fall Injury Risk Goal: Absence of Fall and Fall-Related Injury Outcome: Ongoing (Interventions Implemented as Appropriate) Problem: Infection Goal: Absence of Infection Signs and Symptoms Outcome: Ongoing (Interventions Implemented as Appropriate) Problem: Fluid Imbalance (Heart Failure) Goal: Fluid Balance Outcome: Ongoing (Interventions Implemented as Appropriate) Problem: Respiratory Compromise (Heart Failure) Goal: Effective Oxygenation and Ventilation Outcome: Ongoing (Interventions Implemented as Appropriate) * Consult Note - Gauri Vega MD - 07/03/2023 7:46 AM EDT Vascular Surgery Inpatient Consultation History of Present Illness: Loida Roque is a 53 y.o. female with non obstructive CAD (s/p cath 08/2019 with normal coronaries, cath 04/2023 with non obstructive CAD), SVT (s/p ablation), paroxysmal afib, HFpEF, pulmonary emboli (on Eliquis) who was admitted with chest and abdominal pain. The patient has undergone extensive workup for ACS and volume overload. She is being diuresed. She underwent a CT A/P for her abdominal pain which showed concern for SMA stenosis, for which vascular surgery is being consulted. Interval: - Underwent mesenteric angiogram and stent placement yesterday - Patient states that abdominal pain with eating has significantly improved - Endorsing some pain at access site radiating down leg and to right flank, remains motor and sensory intact with palpable pulses - Hgb 12.5 from 12.9 Physical Exam: Vital Signs: Temp: [36.7 ??C (98 ??F)-37.1 ??C (98.8 ??F)] Heart Rate: [50-67] Resp: [17-20] BP: (94-118)/(48-66) SpO2: [90 %-99 %] Heart Rate from SpO2: [53 bpm-63 bpm] BMI: Weight: 103.9 kg (229 lb) BMI (Calculated): 38.14 BMI Classification: Obese General: alert, cooperative, NAD, resting comfortably HEENT: normocephalic, atraumatic CVS: Bradycardic Pulm: Breathing comfortably on RA Abd: Mildly tender to palpation, non distended Ext: Palpable DP/PT bilaterally. Right femoral access site with no evidence of hematoma Neuro: Grossly nonfocal, moving all extremities. Labs: Last 3 wbc, hgb, hct plt Recent Labs 07/03/23 0307 07/02/23 0358 07/01/23 0256 WBC 8.2 7.6 6.9 HGB 12.5 12.9 12.8 HCT 38.5 39.5 39.0 PLATELET 203 200 224 Last 3 Lytes Recent Labs 07/03/23 0307 07/02/23 0358 07/01/23 0256 NA 138 133* 137 K 4.2 4.1 4.1 CL 107 104 105 CO2 20* 21* 22 BUN 16 15 16 CREATININE 1.20 1.21* 1.21* Last 3 Coags No results for input(s): PT, INR, PTT in the last 168 hours. Vascular Imaging: CT Abdomen Pelvis: IMPRESSION 1. No acute process in the abdomen or pelvis. 2. Severe stenosis of the proximal SMA. 3. Bibasilar groundglass opacities, favored atelectasis given dependent predilection, however, a superimposed infectious/inflammatory process or alveolar edema is not excluded. Mesenteric Duplex Findings: Unilateral Waveform PSV cm/s EDV cm/s Patent Dary Visceral Aorta 80 16 Celiac Artery, Proximal [place]-Biphasic 119 26 Celiac Artery, Mid [place]-Biphasic 115 21 Celiac Artery, Distal No Vis Sup Mes Artery Proximal Biphasic 427 91 Sup Mes Artery Middle [place]-Biphasic 100 17 Sup Mes Artery Distal [place]-Biphasic 64 15 Hepatic Artery No Vis Splenic Artery No Vis Inf Mes Artery No Vis Interpretation: Patent superior mesenteric artery with elevated velocities consistent with 50% or greater stenosis in the proximal segment. Patent proximal to mid celiac artery with no evidence of significant stenosis. Due to overlying bowel gas unable to visualize hepatic, splenic, inferior mesenteric, and distal celiac arteries cannot exclude elevated velocities/ stenosis here. Arterial Duplex 07/03/23: Findings: Right PSV (cm/s) EDV Common Femoral Artery, Proximal 118 16 Common Femoral Artery, Mid 88 9 Common femoral artery, Distal 97 12 Profunda Femoris Artery, Proximal 70 5 Superficial Femoral Artery, Proximal 120 0 Interpretation: RIGHT: Patent common femoral, proximal profunda [...] in our vascular lab database for comparison. EKG/Echo/Cath: Echo 06/22/23: Normal left ventricle size with mildly reduced LV systolic function. Mild global hypokinesis. LV ejection fraction is approximately 50%. Normal right ventricle. No significant valvular abnormalities. On comparison to the prior echo dated 04/17/2023, there has been a slight decrease in LV systolic function. Assessment: Loida Roque is a 53 y.o. female admitted with chest and abdominal pain. Her cardiac issues are being managed by cardiology and the cardiac hospitalist. The patient underwent a mesenteric duplex with placement of an SMA stent and this has improved her abdominal pain. She is endorsing some pain in her right leg radiating to her flank, however has no evidence of a pseudoaneurysm or hematoma in her groin and her hemoglobin and vascular exam remains stable. We will continue to monitor. Recommendation: - Patient can continue on heparin drip, from vascular surgery perspective, recommend plavix and anticoagulation on discharge (no ASA) Discussed with Dr. Kamara. Please page [phone] with any questions or concerns. Gauri Vega MD 07/03/2023 1:46 PM * Plan of Care - Olive Hernandez RN - 07/03/2023 12:54 AM EDT Problem: Adult Inpatient Plan of [...] Outcome: Ongoing (Interventions Implemented as Appropriate) Problem: Fall Injury Risk Goal: Absence of Fall and Fall-Related Injury Outcome: Ongoing (Interventions Implemented as Appropriate) Problem: Infection Goal: Absence of Infection Signs and Symptoms Outcome: Ongoing (Interventions Implemented as Appropriate) Problem: Fluid Imbalance (Heart Failure) Goal: Fluid Balance Outcome: Ongoing (Interventions Implemented as Appropriate) Problem: Respiratory Compromise (Heart Failure) Goal: Effective Oxygenation and Ventilation Outcome: Ongoing (Interventions Implemented as Appropriate) * Plan of Care - Chayo Painting RN - 07/02/2023 7:16 PM EDT OUTCOME EVALUATION NOTE: OUTCOME SUMMARY: Pt denies CP or SOB. VSS. Pt to IR for procedure. PLAN MOVING FORWARD: Pt rt femoral site is D+I. Pt has +pedal pulses. No hematoma noted. Drsg D+I. Pt complains of site soreness. Pt up in chair post bed rest. CARE PLAN GOAL OUTCOME EVALUATION: Problem: Adult [...] Outcome: Ongoing (Interventions Implemented as Appropriate) Problem: Fall Injury Risk Goal: Absence of Fall and Fall-Related Injury Outcome: Ongoing (Interventions Implemented as Appropriate) Problem: Infection Goal: Absence of Infection Signs and Symptoms Outcome: Ongoing (Interventions Implemented as Appropriate) Problem: Fluid Imbalance (Heart Failure) Goal: Fluid Balance Outcome: Ongoing (Interventions Implemented as Appropriate) Problem: Respiratory Compromise (Heart Failure) Goal: Effective Oxygenation and Ventilation Outcome: Ongoing (Interventions Implemented as Appropriate) * Consult Note - Gauri Vega MD - 07/02/2023 11:34 AM EDT Vascular Surgery Inpatient Consultation History of Present Illness: Loida Roque is a 53 y.o. female with non obstructive CAD (s/p cath 08/2019 with normal coronaries, cath 04/2023 with non obstructive CAD), SVT (s/p ablation), paroxysmal afib, HFpEF, pulmonary emboli (on Eliquis) who was admitted with chest and abdominal pain. The patient has undergone extensive workup for ACS and volume overload. She is being diuresed. She underwent a CT A/P for her abdominal pain which showed concern for SMA stenosis, for which vascular surgery is being consulted. Interval: - Patient's pain somewhat improved this morning, continues to avoid large meals - Creatinine 1.21 from 1.21 Physical Exam: Vital Signs: Temp: [36.4 ??C (97.6 ??F)-36.9 ??C (98.5 ??F)] Heart Rate: [48-67] Resp: [12-18] BP: (92-114)/(50-62) SpO2: [80 %-98 %] Heart Rate from SpO2: -- BMI: Weight: 103.9 kg (229 lb 1.6 oz) BMI (Calculated): 38.14 BMI Classification: Obese General: alert, cooperative, NAD, resting comfortably HEENT: normocephalic, atraumatic CVS: Bradycardic Pulm: Breathing comfortably on RA Abd: Mildly tender to palpation, non distended Ext: Palpable DP/PT bilaterally Neuro: Grossly nonfocal, moving all extremities. Labs: Last 3 wbc, hgb, hct plt Recent Labs 07/02/23 0358 07/01/23 0256 06/30/23 0314 WBC 7.6 6.9 8.0 HGB 12.9 12.8 13.1 HCT 39.5 39.0 39.5 PLATELET 200 224 235 Last 3 Lytes Recent Labs 07/02/23 0358 07/01/23 0256 06/30/23 0314 NA 133* 137 137 K 4.1 4.1 3.8 CL 104 105 104 CO2 21* 22 23 BUN 15 16 18 CREATININE 1.21* 1.21* 1.22* Last 3 Coags No results for input(s): PT, INR, PTT in the last 168 hours. Vascular Imaging: CT Abdomen Pelvis: IMPRESSION 1. No acute process in the abdomen or pelvis. 2. Severe stenosis of the proximal SMA. 3. Bibasilar groundglass opacities, favored atelectasis given dependent predilection, however, a superimposed infectious/inflammatory process or alveolar edema is not excluded. Mesenteric Duplex Findings: Unilateral Waveform PSV cm/s EDV cm/s Patent Dary Visceral Aorta 80 16 Celiac Artery, Proximal [place]-Biphasic 119 26 Celiac Artery, Mid [place]-Biphasic 115 21 Celiac Artery, Distal No Vis Sup Mes Artery Proximal Biphasic 427 91 Sup Mes Artery Middle [place]-Biphasic 100 17 Sup Mes Artery Distal [place]-Biphasic 64 15 Hepatic Artery No Vis Splenic Artery No Vis Inf Mes Artery No Vis Interpretation: Patent superior mesenteric artery with elevated velocities consistent with 50% or greater stenosis in the proximal segment. Patent proximal to mid celiac artery with no evidence of significant stenosis. Due to overlying bowel gas unable to visualize hepatic, splenic, inferior mesenteric, and distal celiac arteries cannot exclude elevated velocities/ stenosis here. EKG/Echo/Cath: Echo 06/22/23: Normal left ventricle size with mildly reduced LV systolic function. Mild global hypokinesis. LV ejection fraction is approximately 50%. Normal right ventricle. No significant valvular abnormalities. On comparison to the prior echo dated 04/17/2023, there has been a slight decrease in LV systolic function. Assessment: Loida Roque is a 53 y.o. female admitted with chest and abdominal pain. Her cardiac issues are being managed by cardiology and the cardiac hospitalist. Her presentation may be consistent with chronic mesenteric ischemia, however, the slices of the CT are wide and it was difficult to determine the nature of her SMA disease. Her celiac and FERNANDO appear to be widely patent. She underwent mesenteric duplex which did reveal increased velocities of the proximal SMA. As the patient's pain has worsened, we will plan for a mesenteric angiogram and intervention as indicated today. Per her primary cardiology team, she is optimized from a cardiac standpoint at this time. She continues to be slightly above her admission weight. Recommendation: - Continue heparin drip, holding DOAC. Hold heparin en route to OR - Plan for mesenteric angiogram today ASA III Mallampati III Creat Lab Results Component Value Date CREATININE 1.21 (H) 07/02/[address] Kamara. Please page [phone] with any questions or concerns. Gauri Vega MD 07/02/2023 11:34 AM * Plan of Care - Opal Traore RN - 07/02/2023 6:10 AM EDT OUTCOME EVALUATION NOTE: OUTCOME SUMMARY: Assumed care of patient at 1900. A&Ox4. VSS. Using CPAP overnight. NSR/SB on tele. No complaints of CP or abdominal pain overnight. Independent in room. Pt has been NPO for mesenteric angiogram today. Frequent rounding for comfort and safety, call light within reach. PLAN MOVING FORWARD: Discharge planning as appropriate [facility] GOAL OUTCOME EVALUATION: [...] Outcome: Ongoing (Interventions Implemented as Appropriate) Problem: Fall Injury Risk Goal: Absence of Fall and Fall-Related Injury Outcome: Ongoing (Interventions Implemented as Appropriate) Problem: Infection Goal: Absence of Infection Signs and Symptoms Outcome: Ongoing (Interventions Implemented as Appropriate) Problem: Fluid Imbalance (Heart Failure) Goal: Fluid Balance Outcome: Ongoing (Interventions Implemented as Appropriate) Problem: Respiratory Compromise (Heart Failure) Goal: Effective Oxygenation and Ventilation Outcome: Ongoing (Interventions Implemented as Appropriate) * Consult Note - Gauri Vega MD - 07/01/2023 11:44 AM EDT Vascular Surgery Inpatient Consultation History of Present Illness: Loida Roque is a 53 y.o. female with non obstructive CAD (s/p cath 08/2019 with normal coronaries, cath 04/2023 with non obstructive CAD), SVT (s/p ablation), paroxysmal afib, HFpEF, pulmonary emboli (on Eliquis) who was admitted with chest and abdominal pain. The patient has undergone extensive workup for ACS and volume overload. She is being diuresed. She underwent a CT A/P for her abdominal pain which showed concern for SMA stenosis, for which vascular surgery is being consulted. Interval: - Patient's pain somewhat improved this morning, although she states she had an episode of severe pain yesterday immediately following eating - Creatinine 1.21 from 1.22 Physical Exam: Vital Signs: Temp: [36.3 ??C (97.3 ??F)-36.8 ??C (98.3 ??F)] Heart Rate: [45-58] Resp: [16-22] BP: (94-107)/(48-65) SpO2: [93 %-98 %] Heart Rate from SpO2: -- BMI: Weight: 103.8 kg (228 lb 12.8 oz) BMI (Calculated): 38.14 BMI Classification: Obese General: alert, cooperative, NAD, resting comfortably HEENT: normocephalic, atraumatic CVS: Bradycardic Pulm: Breathing comfortably on RA Abd: Mildly tender to palpation, non distended Ext: Palpable DP/PT bilaterally Neuro: Grossly nonfocal, moving all extremities. Labs: Last 3 wbc, hgb, hct plt Recent Labs 07/01/23 0256 06/30/23 0314 06/29/23 0239 WBC 6.9 8.0 8.3 HGB 12.8 13.1 13.2 HCT 39.0 39.5 38.9 PLATELET 224 235 237 Last 3 Lytes Recent Labs 07/01/23 0256 06/30/23 0314 06/29/23 0239 NA 137 137 138 K 4.1 3.8 3.9 CL 105 104 105 CO2 22 23 22 BUN 16 18 21* CREATININE 1.21* 1.22* 1.17 Last 3 Coags No results for input(s): PT, INR, PTT in the last 168 hours. Vascular Imaging: CT Abdomen Pelvis: IMPRESSION 1. No acute process in the abdomen or pelvis. 2. Severe stenosis of the proximal SMA. 3. Bibasilar groundglass opacities, favored atelectasis given dependent predilection, however, a superimposed infectious/inflammatory process or alveolar edema is not excluded. Mesenteric Duplex Findings: Unilateral Waveform PSV cm/s EDV cm/s Patent Dary Visceral Aorta 80 16 Celiac Artery, Proximal [place]hasic 119 26 Celiac Artery, Mid [place]-Biphasic 115 21 Celiac Artery, Distal No Vis Sup Mes Artery Proximal Biphasic 427 91 Sup Mes Artery Middle [place]-Biphasic 100 17 Sup Mes Artery Distal [place]hasic 64 15 Hepatic Artery No Vis Splenic Artery No Vis Inf Mes Artery No Vis Interpretation: Patent superior mesenteric artery with elevated velocities consistent with 50% or greater stenosis in the proximal segment. Patent proximal to mid celiac artery with no evidence of significant stenosis. Due to overlying bowel gas unable to visualize hepatic, splenic, inferior mesenteric, and distal celiac arteries cannot exclude elevated velocities/ stenosis here. EKG/Echo/Cath: Echo 06/22/23: Normal left ventricle size with mildly reduced LV systolic function. Mild global hypokinesis. LV ejection fraction is approximately 50%. Normal right ventricle. No significant valvular abnormalities. On comparison to the prior echo dated 04/17/2023, there has been a slight decrease in LV systolic function. Assessment: Loida Roque is a 53 y.o. female admitted with chest and abdominal pain. Her cardiac issues are being managed by cardiology and the cardiac hospitalist. Her presentation may be consistent with chronic mesenteric ischemia, however, the slices of the CT are wide and it was difficult to determine the nature of her SMA disease. Her celiac and FERNANDO appear to be widely patent. She underwent mesenteric duplex which did reveal increased velocities of the proximal SMA. As the patient's pain has worsened, we will plan for a mesenteric angiogram and intervention as indicated tomorrow. Per her primary cardiology team, she is optimized from a cardiac standpoint at thistime. She continues to be slightly above her admission weight. Recommendation: - Continue heparin drip, holding DOAC - Plan for mesenteric angiogram tomorrow, please make NPO at midnight tonight Discussed with Dr. Kamara. Please page [phone] with any questions or concerns. Gauri Vega MD 07/01/2023 11:44 AM * Plan of Care - Opal Traore RN - 07/01/2023 5:58 AM EDT OUTCOME EVALUATION NOTE: OUTCOME SUMMARY: Assumed care of patient at 1900. A&Ox4. VSS. Using CPAP overnight. NSR/SB on tele. No complaints of CP or abdominal pain overnight. Independent in room. Frequent rounding for comfort and safety, call light within reach. PLAN MOVING FORWARD: Remind pt to eat small meals to avoid abd pain SMA stenting thurs or fri? CPG GOAL OUTCOME EVALUATION: Problem: Adult Inpatient [...] Outcome: Ongoing (Interventions Implemented as Appropriate) Problem: Fall Injury Risk Goal: Absence of Fall and Fall-Related Injury Outcome: Ongoing (Interventions Implemented as Appropriate) Problem: Infection Goal: Absence of Infection Signs and Symptoms Outcome: Ongoing (Interventions Implemented as Appropriate) Problem: Fluid Imbalance (Heart Failure) Goal: Fluid Balance Outcome: Ongoing (Interventions Implemented as Appropriate) Problem: Respiratory Compromise (Heart Failure) Goal: Effective Oxygenation and Ventilation Outcome: Ongoing (Interventions Implemented as Appropriate) * Plan of Care - Aaron Caban RN - 06/30/2023 6:49 PM EDT Assumed care of patient at 0700. At~1200 patient had complaints of chest pain, EKG obtained, 1 SLN nitro, and 1 Percocet was given. This relieved the symptoms, Dr. Keating notified. At ~1800 patient complained of 10/10 abdominal pain that was different from the previous pain. Gas-X and Percocet were administered, Dr. Copeland called to bedside. Medications relieved the pain. Directed to only give small snacks and meals at a time in order to avoid additional episodes of this pain. Otherwise patient had a restful shift, mild nausea and a headache persistent during shift. Vital signs stable, hypotensive. View assessment flowsheet for additional details. Problem: Adult Inpatient Plan of Care Goal: Plan of Care Review 06/30/20231848 by Aaron Caban RN Outcome: Ongoing (Interventions Implemented as Appropriate) 06/30/2023 1246 by Aaron Caban RN Outcome: Ongoing (Interventions Implemented as Appropriate) Goal: Patient-Specific Goal (Individualized) 06/30/20231848 by Aaron Caban RN Outcome: Ongoing (Interventions Implemented as Appropriate) 06/30/2023 1246 by Aaron Caban RN Outcome: Ongoing (Interventions Implemented as Appropriate) Goal: Absence of Hospital-Acquired Illness or Injury 06/30/20231848 by Aaron Caban RN Outcome: Ongoing (Interventions Implemented as Appropriate) 06/30/2023 1246 by Aaron Caban RN Outcome: Ongoing (Interventions Implemented as Appropriate) Goal: Optimal Comfort and Wellbeing 06/30/20231848 by Aaron Caban RN Outcome: Ongoing (Interventions Implemented as Appropriate) 06/30/2023 1246 by Aaron Caban RN Outcome: Ongoing (Interventions Implemented as Appropriate) Goal: Readiness for Transition of Care 06/30/20231848 by Aaron Caban RN Outcome: Ongoing (Interventions Implemented as Appropriate) 06/30/2023 1246 by Aaron Caban RN Outcome: Ongoing (Interventions Implemented as Appropriate) Problem: Chest Pain Goal: Resolution of Chest Pain Symptoms 06/30/20231848 by Aaron Caban RN Outcome: Ongoing (Interventions Implemented as Appropriate) 06/30/2023 1246 by Aaron Caban RN Outcome: Ongoing (Interventions Implemented as Appropriate) Problem: Fall Injury Risk Goal: Absence of Fall and Fall-Related Injury 06/30/20231848 by Aaron Caban RN Outcome: Ongoing (Interventions Implemented as Appropriate) 06/30/2023 1246 by Aaron Caban RN Outcome: Ongoing (Interventions Implemented as Appropriate) Problem: Infection Goal: Absence of Infection Signs and Symptoms 06/30/20231848 by Aaron Caban RN Outcome: Ongoing (Interventions Implemented as Appropriate) 06/30/2023 1246 by Aaron Caban RN Outcome: Ongoing (Interventions Implemented as Appropriate) Problem: Fluid Imbalance (Heart Failure) Goal: Fluid Balance 06/30/20231848 by Aaron Caban RN Outcome: Ongoing (Interventions Implemented as Appropriate) 06/30/2023 1246 by Aaron Caban RN Outcome: Ongoing (Interventions Implemented as Appropriate) Problem: Respiratory Compromise (Heart Failure) Goal: Effective Oxygenation and Ventilation 06/30/20231848 by Aaron Caban RN Outcome: Ongoing (Interventions Implemented as Appropriate) 06/30/2023 1246 by Aaron aCban RN Outcome: Ongoing (Interventions Implemented as Appropriate) * Consult Note - Gauri Vega MD - 06/30/2023 4:51 PM EDT Vascular Surgery Inpatient Consultation History of Present Illness: Loida Roque is a 53 y.o. female with non obstructive CAD (s/p cath 08/2019 with normal coronaries, cath 04/2023 with non obstructive CAD), SVT (s/p ablation), paroxysmal afib, HFpEF, pulmonary emboli (on Eliquis) who was admitted with chest and abdominal pain. The patient has undergone extensive workup for ACS and volume overload. She is being diuresed. She underwent a CT A/P for her abdominal pain which showed concern for SMA stenosis, for which vascular surgery is being consulted. Interval: - No change in abdominal pain this morning. Patient given percocet overnight to allow her to sleep,which she states was helpful - - Creatinine 1.22 Physical Exam: Vital Signs: Temp: [36.3 ??C (97.3 ??F)-36.7 ??C (98.1 ??F)] Heart Rate: [43-62] Resp: [16-20] BP: (93-106)/(48-65) SpO2: [93 %-100 %] Heart Rate from SpO2: -- BMI: Weight: 103 kg (227 lb 1.6 oz) BMI (Calculated): 38.14 BMI Classification: Obese General: alert, cooperative, NAD, resting comfortably HEENT: normocephalic, atraumatic CVS: Bradycardic Pulm: Breathing comfortably on RA Abd: Mildly tender to palpation, non distended Ext: Palpable DP/PT bilaterally Neuro: Grossly nonfocal, moving all extremities. Labs: Last 3 wbc, hgb, hct plt Recent Labs 06/30/23 0314 06/29/23 0239 06/28/23 0152 WBC 8.0 8.3 8.1 HGB 13.1 13.2 13.4 HCT 39.5 38.9 40.6 PLATELET 235 237 238 Last 3 Lytes Recent Labs 06/30/23 0314 06/29/23 0239 06/28/23 0152 NA 137 138 138 K 3.8 3.9 4.0 CL 104 105 105 CO2 23 22 21* BUN 18 21* 24* CREATININE 1.22* 1.17 1.21* Last 3 Coags No results for input(s): PT, INR, PTT in the last 168 hours. Vascular Imaging: CT Abdomen Pelvis: IMPRESSION 1. No acute process in the abdomen or pelvis. 2. Severe stenosis of the proximal SMA. 3. Bibasilar groundglass opacities, favored atelectasis given dependent predilection, however, a superimposed infectious/inflammatory process or alveolar edema is not excluded. Mesenteric Duplex Findings: Unilateral Waveform PSV cm/s EDV cm/s Patent Dary Visceral Aorta 80 16 Celiac Artery, Proximal [place]-Biphasic 119 26 Celiac Artery, Mid [place]-Biphasic 115 21 Celiac Artery, Distal No Vis Sup Mes Artery Proximal [place]ip[place]ic 427 91 Sup Mes Artery Middle [place]-Biphasic 100 17 Sup Mes Artery Distal [place]-Biphasic 64 15 Hepatic Artery No Vis Splenic Artery No Vis Inf Mes Artery No Vis Interpretation: Patent superior mesenteric artery with elevated velocities consistent with 50% or greater stenosis in the proximal segment. Patent proximal to mid celiac artery with no evidence of significant stenosis. Due to overlying bowel gas unable to visualize hepatic, splenic, inferior mesenteric, and distal celiac arteries cannot exclude elevated velocities/ stenosis here. EKG/Echo/Cath: Echo 06/22/23: Normal left ventricle size with mildly reduced LV systolic function. Mild global hypokinesis. LV ejection fraction is approximately 50%. Normal right ventricle. No significant valvular abnormalities. On comparison to the prior echo dated 04/17/2023, there has been a slight decrease in LV systolic function. Assessment: Loida Roque is a 53 y.o. female admitted with chest and abdominal pain. Her cardiac issues are being managed by cardiology and the cardiac hospitalist. Her presentation may be consistent with chronic mesenteric ischemia, however, the slices of the CT are wide and it was difficult to determine the nature of her SMA disease. Her celiac and FERNANDO appear to be widely patent. She underwent mesenteric duplex which did reveal increased velocities of the proximal SMA. As the patient's pain has worsened, we will plan for a mesenteric angiogram and intervention as indicated later this week. Per her primary cardiology team, she is optimized from a cardiac standpoint at this time. She continues to be slightly above her admission weight, and is undergoing IV diuresis. Recommendation: - Continue heparin drip, holding DOAC - Plan for mesenteric angiogram Wednesday, please make NPO at midnight Will discuss further with attending and primary team and update plan accordingly. Gauri Vega MD 06/30/2023 4:51 PM * Plan of Care - Opal Traore RN - 06/30/2023 6:00 AM EDT OUTCOME EVALUATION NOTE: OUTCOME SUMMARY: Assumed care of pt at 1900. A&Ox4. VSS on RA. Using CPAP overnight. NSR on tele. No CP or SOB. Independent in room. Hep gtt therapeutic x1. Frequent rounding for comfort and safety, call light within reach. CPG GOAL OUTCOME EVALUATION: Problem: Adult Inpatient [...] Outcome: Ongoing (Interventions Implemented as Appropriate) Problem: Fall Injury Risk Goal: Absence of Fall and Fall-Related Injury Outcome: Ongoing (Interventions Implemented as Appropriate) Problem: Infection Goal: Absence of Infection Signs and Symptoms Outcome: Ongoing (Interventions Implemented as Appropriate) Problem: Fluid Imbalance (Heart Failure) Goal: Fluid Balance Outcome: Ongoing (Interventions Implemented as Appropriate) Problem: Respiratory Compromise (Heart Failure) Goal: Effective Oxygenation and Ventilation Outcome: Ongoing (Interventions Implemented as Appropriate) * Plan of Care - Chilo Nickerson RN - 06/29/2023 6:35 PM EDT SHIFT EVALUATION NOTE: SHIFT SUMMARY: Pt AOx4. Bed/chair alarm maintained for high fall risk. VSS on RA, assessment as charted. Pt deniesCP or SOB. NSR on tele, see scanned documents. See flowsheets for I&O. Family stressors in AM, increased abd & CP, team aware, EKG obtained. Uneventful shift for pt, call lombardo within reach. PLAN MOVING FORWARD: Continue to monitor per protocol Discharge planning as appropriate INDIVIDUALIZED FALL PREVENTION INTERVENTIONS: Patient-specific fall risk factors per assessment: [current deficits]: Limited mobility, tele wires, SpO2 monitor wire, unfamiliar environment Assistance [level of assistance required for transfers and ambulation]: Independent Supervision [direct monitoring required during toileting and ADLs]: Independent Surveillance [continuous indirect monitoring]: Telemetry, continuous pulse oximetry Patient-specific fall prevention interventions for sensory deficits provided, if applicable: Lighting adjusted for specific tasks/activities, purposeful rounding, able to make needs known, non skid socks, bed in lowest/locked position, personal items within reach, call lombardo within reach CARE PLAN GOAL OUTCOME EVALUATION: Problem: Adult [...] Outcome: Ongoing (Interventions Implemented as Appropriate) Problem: Fall Injury Risk Goal: Absence of Fall and Fall-Related Injury Outcome: Ongoing (Interventions Implemented as Appropriate) Problem: Infection Goal: Absence of Infection Signs and Symptoms Outcome: Ongoing (Interventions Implemented as Appropriate) Problem: Fluid Imbalance (Heart Failure) Goal: Fluid Balance Outcome: Ongoing (Interventions Implemented as Appropriate) Problem: Respiratory Compromise (Heart Failure) Goal: Effective Oxygenation and Ventilation Outcome: Ongoing (Interventions Implemented as Appropriate) * Consult Note - Gauri Vega MD - 06/29/2023 6:52 AM EDT Vascular Surgery Inpatient Consultation History of Present Illness: Loida Roque is a 53 y.o. female with non obstructive CAD (s/p cath 08/2019 with normal coronaries, cath 04/2023 with non obstructive CAD), SVT (s/p ablation), paroxysmal afib, HFpEF, pulmonary emboli (on Eliquis) who was admitted with chest and abdominal pain. The patient has undergone extensive workup for ACS and volume overload. She is being diuresed. She underwent a CT A/P for her abdominal pain which showed concern for SMA stenosis, for which vascular surgery is being consulted. Interval: - Reports abdominal pain continues to worsen. Pain described as constant - Right upper quadrant ultrasound yesterday negative for cholelithiasis - Patient optimized per cardiology, continues diuresis - Creatinine 1.17 Physical Exam: Vital Signs: Temp: [36.4 ??C (97.5 ??F)-36.6 ??C (97.8 ??F)] Heart Rate: [47-74] Resp: [16-18] BP: (95-121)/(52-73) SpO2: [97 %-100 %] Heart Rate from SpO2: -- BMI: Weight: 102.5 kg (226 lb) BMI (Calculated): 38.14 BMI Classification: Obese General: alert, cooperative, NAD, resting comfortably HEENT: normocephalic, atraumatic CVS: Bradycardic Pulm: Breathing comfortably on RA Abd: Mildly tender to palpation, non distended Ext: Palpable DP/PT bilaterally Neuro: Grossly nonfocal, moving all extremities. Labs: Last 3 wbc, hgb, hct plt Recent Labs 06/29/23 0239 06/28/23 0152 06/27/23 0434 WBC 8.3 8.1 7.6 HGB 13.2 13.4 12.9 HCT 38.9 40.6 39.0 PLATELET 237 238 245 Last 3 Lytes Recent Labs 06/29/23 0239 06/28/23 0152 06/27/232005 NA 138 138 141 K 3.9 4.0 4.3 CL 105 105 106 CO2 * 24 BUN 21* 24* 24* CREATININE 1.17 1.21* 1.28* Last 3 Coags No results for input(s): PT, INR, PTT in the last 168 hours. Vascular Imaging: CT Abdomen Pelvis: IMPRESSION 1. No acute process in the abdomen or pelvis. 2. Severe stenosis of the proximal SMA. 3. Bibasilar groundglass opacities, favored atelectasis given dependent predilection, however, a superimposed infectious/inflammatory process or alveolar edema is not excluded. Mesenteric Duplex Findings: Unilateral Waveform PSV cm/s EDV cm/s Patent Dary Visceral Aorta 80 16 Celiac Artery, Proximal [place]ic 119 26 Celiac Artery, Mid [place]-Biphasic 115 21 Celiac Artery, Distal No Vis Sup Mes Artery Proximal [place] 427 91 Sup Mes Artery Middle [place] 100 17 Sup Mes Artery Distal [place] 64 15 Hepatic Artery No Vis Splenic Artery No Vis Inf Mes Artery No Vis Interpretation: Patent superior mesenteric artery with elevated velocities consistent with 50% or greater stenosis in the proximal segment. Patent proximal to mid celiac artery with no evidence of significant stenosis. Due to overlying bowel gas unable to visualize hepatic, splenic, inferior mesenteric, and distal celiac arteries cannot exclude elevated velocities/ stenosis here. EKG/Echo/Cath: Echo 06/22/23: Normal left ventricle size with mildly reduced LV systolic function. Mild global hypokinesis. LV ejection fraction is approximately 50%. Normal right ventricle. No significant valvular abnormalities. On comparison to the prior echo dated 04/17/2023, there has been a slight decrease in LV systolic function. Assessment: Loida Roque is a 53 y.o. female admitted with chest and abdominal pain. Her cardiac issues are being managed by cardiology and the cardiac hospitalist. Her presentation may be consistent with chronic mesenteric ischemia, however, the slices of the CT are wide and it was difficult to determine the nature of her SMA disease. Her celiac and FERNANDO appear to be widely patent. She underwent mesenteric duplex which did reveal increased velocities of the proximal SMA. As the patient's pain is worsening, we will plan for a mesenteric angiogram and intervention as indicated later this week. Per her primary cardiology team, she is optimized from a cardiac standpoint at this time. She continues to be slightly above her admission weight, and is undergoing IV diuresis. Recommendation: - Continue heparin drip, holding DOAC - Will schedule patient for mesenteric angiogram later this week Will discuss further with attending and primary team and update plan accordingly. Gauri Vega MD 06/29/2023 6:52 AM Associated attestation - Carlota Kamara MD - 06/29/2023 11:06 AM EDT I have seen and examined the patient, providing chavis components as outlined below. I have reviewed the resident???s above note; my evaluation of the patient is below: Pt with lower pelvic pain and L chest pain she reports is intermittent Still with post-prandial pain Offered SMA stent this week, unfortunately she was started on eliquis. Abd exam benign, WBC normal. Will monitor closely, however unless clinical change will wait for eliquis to clear. Currently scheduled for Wednesday for percutaneous SMA stent for high grade SMA stenosis and chronic mesenteric ischemia, if availability opens on OR schedule possible may be able to add on . Discussed with patient anticipate some of her symptoms may improve, however likely not all of her symptoms will be relieved w/treatment of stenosis. discussed r/b and agrees to proceed. Carlota Kamara MD * Plan of Care - Chilo Nickerson RN - 06/28/2023 6:16 PM EDT SHIFT EVALUATION NOTE: SHIFT SUMMARY: Pt AOx4. VSS on RA, assessment as charted. Pt denies CP or SOB. NSR on tele, see scanned documents.See flowsheets for I&O. Pt went for duplex of mesenteric arteries and abdominal ultrasound in AM. Uneventful shift for pt, call lombardo within reach. PLAN MOVING FORWARD: Continue to monitor per protocol Discharge planning as appropriate INDIVIDUALIZED FALL PREVENTION INTERVENTIONS: Patient-specific fall risk factors per assessment: [current deficits]: Limited mobility, tele wires, SpO2 monitor wire, unfamiliar environment Assistance [level of assistance required for transfers and ambulation]: Independent Supervision [direct monitoring required during toileting and ADLs]: Independent Surveillance [continuous indirect monitoring]: Telemetry, continuous pulse oximetry Patient-specific fall prevention interventions for sensory deficits provided, if applicable: Lighting adjusted for specific tasks/activities, purposeful rounding, able to make needs known, non skid socks, bed in lowest/locked position, personal items within reach CARE PLAN GOAL OUTCOME EVALUATION: Problem: Adult [...] Outcome: Ongoing (Interventions Implemented as Appropriate) Problem: Fall Injury Risk Goal: Absence of Fall and Fall-Related Injury Outcome: Ongoing (Interventions Implemented as Appropriate) Problem: Infection Goal: Absence of Infection Signs and Symptoms Outcome: Ongoing (Interventions Implemented as Appropriate) Problem: Fluid Imbalance (Heart Failure) Goal: Fluid Balance Outcome: Ongoing (Interventions Implemented as Appropriate) Problem: Respiratory Compromise (Heart Failure) Goal: Effective Oxygenation and Ventilation Outcome: Ongoing (Interventions Implemented as Appropriate) * Consult Note - Chayo Dominguez PA - 06/28/2023 8:52 AM EDT [facility] [place] Department of Cardiology Consult Progress Note Reason for consult: chest pain Brief Course: Loida Roque is a 53 y.o. female with history of non- obstructive CAD, recent SVT ablation (03/31), paroxysmal afib (on eliquis), HFpEF, history of PE, and obesity hypoventilation disease, who is admitted for progressive fatigue, SOB, and chest pain. She has undergone extensive testing for chronic chest pain and shortness of breath to include cardiac catheterization, numerous echocardiograms, cardiac MRI, cardiac PET sarcoid scan. No clear etiology has been found to date asidefrom HFpEF and possible microvascular dysfunction. S: - Continue to have chest pain almost constantly rated 2-3/10 and exacerbates to 5-6/10 intermittently (rest or exertion). - No perceived improvement in chest pain with ranolazine or low dose metoprolol - Chronic SOB and peripheral edema. - Reports gaining weight despite diuretics. Home weights had been ~215-217lb. EXAM / DATA Vitals reviewed: HR 40-50s, BP ~90/50s, SpO2 100% on room air. Wt: 225lbs (221 on admission) Exam notable for no acute distress, No JVD, normal S1 and S2 without extra heart sounds, no rales, distended abdomen, trace peripheral edema. Labs reviewed EKG reviewed. Imaging reviewed. Echocardiogram from 06/22/2023 reviewed: with mild reduction in LV function of 50% with normal RV and no valve pathology. Diastolic dysfunction based on tissue doppler. Catheterization from 04/18/23 reviewed: Left Main There was mild diffuse (<=25% [...] segment of the right coronary artery (RCA). cMRI - 04/21/2023 - mid myocardial stripe of LGE PET cardiac sarcoid 04/30/23 - negative for sarcoid with anterior appearance of scar ASSESSMENT AND PLAN Loida Roque is a 53 y.o. female with history as noted above who presents with chest pain perhaps secondary to volume overload and microvascular disease. We have trialed imdur though she developed severe headaches so it was discontinued. At this phase, we have started and will increase ranolazine for her microvascular disease and use diuretics to try and help her symptoms. Unfortunately, I am not sure that we will entirely relieve her chronic symptoms as the diagnosis remains elusive despite her extensive workup. Based on the cMRI and PET, sarcoid is not the most likely diagnosis and I think more likely she has chronic microvascular dysfunction and HFpEF. Our exam for volume assessment is difficult given body habitus. Aggressive diuresis resulted in CATIE(Cr 1.1 > 1.6). Would trial re-introduction of home PO torsemide. If volume status remains unclear a RHC could be done; however, at this point she is HDS without hypoxia or evidence of significantvolume overload and therefore would defer. 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 Vascular surgery following with plans for inpatient versus outpatient SMA stent. From a cardiac perspective no further pre-operative testing indicated. # Acute on Chronic HFpEF # Microvascular Angina # Volume Overload # SMA stenosis Recommendations: - Anti-anginals: continue ranolazine 1000mg BID, metoprolol succinate 12.5mg daily, and amlodipine 2.5mg daily. Did not tolerate Imdur. - Diuretic: trial transition back to home PO torsemide 40mg BID. Continue spironolactone 25mg daily. - Resume SGLT2i if no inpatient procedure planned. - No further diagnostic testing at this time. - Current cardiac status is considered optimized. - Follow up with Dr. Kinsey in the outpatient setting once euvolemic and on stable dose of diuretic. - Recommend participation in cardiac rehab or structured exercise program on discharge. Case was discussed with Dr. Henderson who agrees with recommendations as documented above. Consult service will continue to follow patient. x Recommendations are above, please page if further consultation required. JOCY [facility] Cardi[facility] Pager [phone] 06/28/2023 Associated attestation - Klarissa Henderson MD - 06/30/2023 6:25 AM EDT I saw and evaluated the patient with Chayo Dominguez PA and agree with the assessment and plan documented below. Klarissa Henderson MD Advanced Heart Failure and Cardiac Transplant * Plan of Care - Magda Ramirez RN - 06/28/2023 7:37 AM EDT Chronic chest and abdominal pain still persisting. Team aware. NPO for abdominal ultrasound at 10AM. Problem: Adult Inpatient Plan of Care Goal: Plan of Care Review Outcome: Ongoing (Interventions Implemented as Appropriate) Goal: Patient-Specific Goal (Individualized) Outcome: Ongoing (Interventions Implemented as Appropriate) Goal: Absence of Hospital-Acquired Illness or Injury Outcome: Ongoing (Interventions Implemented as Appropriate) Goal: Optimal Comfort and Wellbeing Outcome: Ongoing (Interventions Implemented as Appropriate) Goal: Readiness for Transition of Care Outcome: Ongoing (Interventions Implemented as Appropriate) * Consult Note - Gauri Vega MD - 06/28/2023 5:51 AM EDT Vascular Surgery Inpatient Consultation History of Present Illness: Loida Roque is a 53 y.o. female with non obstructive CAD (s/p cath 08/2019 with normal coronaries, cath 04/2023 with non obstructive CAD), SVT (s/p ablation), paroxysmal afib, HFpEF, pulmonary emboli (on Eliquis) who was admitted with chest and abdominal pain. The patient has undergone extensive workup for ACS and volume overload. She is being diuresed. She underwent a CT A/P for her abdominal pain which showed concern for SMA stenosis, for which vascular surgery is being consulted. Interval: - Patient states pain has been worsening over last few days, continues to be able to tolerate diet but pain worse after eating Physical Exam: Vital Signs: Temp: [36.4 ??C (97.5 ??F)-36.6 ??C (97.8 ??F)] Heart Rate: [47-74] Resp: [16-18] BP: (95-121)/(52-73) SpO2: [97 %-100 %] Heart Rate from SpO2: -- BMI: Weight: 102.5 kg (226 lb) BMI (Calculated): 38.14 BMI Classification: Obese General: alert, cooperative, NAD, resting comfortably HEENT: normocephalic, atraumatic CVS: Bradycardic Pulm: Breathing comfortably on RA Abd: not tender to palpation, non distended Ext: Palpable DP/PT bilaterally Neuro: Grossly nonfocal, moving all extremities. Labs: Last 3 wbc, hgb, hct plt Recent Labs 06/29/23 0239 06/28/23 0152 06/27/23 0434 WBC 8.3 8.1 7.6 HGB 13.2 13.4 12.9 HCT 38.9 40.6 39.0 PLATELET 237 238 245 Last 3 Lytes Recent Labs 06/29/23 0239 06/28/23 0152 06/27/232005 NA 138 138 141 K 3.9 4.0 4.3 CL 105 105 106 CO2 * 24 BUN 21* 24* 24* CREATININE 1.17 1.21* 1.28* Last 3 Coags No results for input(s): PT, INR, PTT in the last 168 hours. Vascular Imaging: CT Abdomen Pelvis: IMPRESSION 1. No acute process in the abdomen or pelvis. 2. Severe stenosis of the proximal SMA. 3. Bibasilar groundglass opacities, favored atelectasis given dependent predilection, however, a superimposed infectious/inflammatory process or alveolar edema is not excluded. EKG/Echo/Cath: Echo 06/22/23: Normal left ventricle size with mildly reduced LV systolic function. Mild global hypokinesis. LV ejection fraction is approximately 50%. Normal right ventricle. No significant valvular abnormalities. On comparison to the prior echo dated 04/17/2023, there has been a slight decrease in LV systolic function. Assessment: Loida Roque is a 53 y.o. female admitted with chest and abdominal pain. Her cardiac issues are being managed by cardiology and the cardiac hospitalist. Her presentation may be consistent with chronic mesenteric ischemia, however, the slices of the CT are wide and it was difficult to determine the nature of her SMA disease. Her celiac and FERNANDO appear to be widely patent. She underwent mesenteric duplex which did reveal increased velocities of the proximal SMA. As the patient's pain is worsening, we will plan for a mesenteric angiogram and intervention as indicated later this week. Per her primary cardiology team, she is optimized from a cardiac standpoint at this time. Recommendation: - Continue heparin drip, holding DOAC - Will schedule patient for mesenteric angiogram later this week Will discuss further with attending and primary team and update plan accordingly. Gauri Vega MD 06/29/2023 5:51 AM * Plan of Care - Charity Jackson RN - 06/27/2023 5:21 PM EDT SHIFT NOTE: Uneventful shift. Pt is A&O x4, VSS, c/o chest and abdominal pain. NSR on tele. Pt currently onRA O2. Ind in room. Head to toe as documented. Questions and concerns addressed, pt comfortable andshowing no signs of distress. Bed in lowest position, call lombardo within reach. Safety checks completed. PLAN MOVING FORWARD: Discharge planning ongoing accordingly. INDIVIDUALIZED FALL PREVENTION INTERVENTIONS: Patient-specific fall risk factors per assessment: [current deficits]: fatigue, pain, pain meds Assistance [level of assistance required for transfers and ambulation]: ind Supervision [direct monitoring required during toileting and ADLs]: ind Surveillance [continuous indirect monitoring]: Q2h safety checks completed Patient-specific fall prevention interventions for sensory deficits provided, if applicable: Purposeful Rounding, Hourly Rounding, Non-skid shoes or socks when OOB, Use of Assistance Devices, Call Lombardo Within Reach, Room Near Nurses Station, Door Open, Light Adjusted for Specific Tasks, Person Items Within Reach, Bed in Lowest and Locked Position CARE PLAN EVALUATION: Problem: Adult Inpatient Plan of Care [...] Outcome: Ongoing (Interventions Implemented as Appropriate) Problem: Fall Injury Risk Goal: Absence of Fall and Fall-Related Injury Outcome: Ongoing (Interventions Implemented as Appropriate) Problem: Infection Goal: Absence of Infection Signs and Symptoms Outcome: Ongoing (Interventions Implemented as Appropriate) Problem: Fluid Imbalance (Heart Failure) Goal: Fluid Balance Outcome: Ongoing (Interventions Implemented as Appropriate) Problem: Respiratory Compromise (Heart Failure) Goal: Effective Oxygenation and Ventilation Outcome: Ongoing (Interventions Implemented as Appropriate) * Consult Note - Chayo Calloway MD - 06/27/2023 9:29 AM EDT Vascular Surgery Inpatient Consultation History of Present Illness: Loida Roque is a 53 y.o. female with non obstructive CAD (s/p cath 08/2019 with normal coronaries, cath 04/2023 with non obstructive CAD), SVT (s/p ablation), paroxysmal afib, HFpEF, pulmonary emboli (on Eliquis) who was admitted with chest and abdominal pain. The patient has undergone extensive workup for ACS and volume overload. She is being diuresed. She underwent a CT A/P for her abdominal pain which showed concern for SMA stenosis, for which vascular surgery is being consulted. Interval: -NAEON -abdominal pain stable, not worse. Continues to tolerate a diet without issues. Physical Exam: Vital Signs: Temp: [36.2 ??C (97.1 ??F)-36.7 ??C (98 ??F)] Heart Rate: [43-64] Resp: [16-18] BP: (94-126)/(56-76) SpO2: [96 %-99 %] Heart Rate from SpO2: -- BMI: Weight: 103.2 kg (227 lb 9.6 oz) BMI (Calculated): 38.14 BMI Classification: Obese General: alert, cooperative, NAD, resting comfortably HEENT: normocephalic, atraumatic CVS: Bradycardic Pulm: Breathing comfortably on RA Abd: not tender to palpation, non distended Ext: Palpable DP/PT bilaterally Neuro: Grossly nonfocal, moving all extremities. Labs: Last 3 wbc, hgb, hct plt Recent Labs 06/27/23 0434 06/26/23 0406 06/25/23 0150 WBC 7.6 8.4 7.2 HGB 12.9 14.0 14.4 HCT 39.0 43.6 42.9 PLATELET 245 258 241 Last 3 Lytes Recent Labs 06/27/23 0434 06/26/23 1658 06/26/23 0406 NA 138 138 135 K 3.9 4.2 4.2 CL 105 104 104 CO2 22 21* 19* BUN 26* 24* 25* CREATININE 1.22* 1.23* 1.24* Last 3 Coags No results for input(s): PT, INR, PTT in the last 168 hours. Vascular Imaging: CT Abdomen Pelvis: IMPRESSION 1. No acute process in the abdomen or pelvis. 2. Severe stenosis of the proximal SMA. 3. Bibasilar groundglass opacities, favored atelectasis given dependent predilection, however, a superimposed infectious/inflammatory process or alveolar edema is not excluded. EKG/Echo/Cath: Echo 06/22/23: Normal left ventricle size with mildly reduced LV systolic function. Mild global hypokinesis. LV ejection fraction is approximately 50%. Normal right ventricle. No significant valvular abnormalities. On comparison to the prior echo dated 04/17/2023, there has been a slight decrease in LV systolic function. Assessment: Loida Roque is a 53 y.o. female admitted with chest and abdominal pain. Her cardiac issues are being managed by cardiology and the cardiac hospitalist. Her presentation may be consistent with chronic mesenteric ischemia, however, the slices of the CT are wide and it is difficult to determinethe nature of her SMA disease. Her celiac and FERNANDO appear to be widely patent. At this time, her coronary issues take precedence, as there is no indication for emergent vascular intervention. Mesenteric duplex was non-diagnostic. At this time, as her pain is relatively chronic and not contributing to her cardiac issues, will plan for short interval outpatient workup and management of SMA stenosis unless the patient's condition worsens. Today we will arrange attempted repeat mesenteric duplex and outpatient discussion of intervention, as needed. We will sign off at this time, however please call with questions. Recommendation: - Attempted to reach out to primary team to discuss further plans from a cardiac perspective. -As stated previously, her SMA stenosis is chronic in nature. Though this is not urgent, we can address this and place an SMA stent while inpatient, however, will need to make sure she is stable froma cardiac perspective. Will discuss further with attending and primary team and update plan accordingly. Chayo Calloway MD 06/27/2023 9:29 AM * Plan of Care - Magda Ramirez RN - 06/27/2023 5:24 AM EDT Pt states chronic chest and abdominal pains still present and worse when lying down especially for prolonged period of time. Team aware. HR dropped to 40's while asleep. MD notified. Problem: Adult Inpatient Plan of Care Goal: Plan of Care Review Outcome: Ongoing (Interventions Implemented as Appropriate) Goal: Patient-Specific Goal (Individualized) Outcome: Ongoing (Interventions Implemented as Appropriate) Goal: Absence of Hospital-Acquired Illness or Injury Outcome: Ongoing (Interventions Implemented as Appropriate) Goal: Optimal Comfort and Wellbeing Outcome: Ongoing (Interventions Implemented as Appropriate) Goal: Readiness for Transition of Care Outcome: Ongoing (Interventions Implemented as Appropriate) * Plan of Care - Charity Jackson RN - 06/26/2023 5:32 PM EDT SHIFT NOTE: Uneventful shift. Pt is A&O x4, VSS, c/o chest and abd pain after eating. No SOB. NSR on tele. Pt currently on RA O2. Ind in room. Head to toe as documented. Questions and concerns addressed, pt comfortable and showing no signs of distress. Bed in lowest position, call lombardo within reach. Safetychecks completed. PLAN MOVING FORWARD: Discharge planning ongoing accordingly. INDIVIDUALIZED FALL PREVENTION INTERVENTIONS: Patient-specific fall risk factors per assessment: [current deficits]: lines/wires, pain Assistance [level of assistance required for transfers and ambulation]: IND Supervision [direct monitoring required during toileting and ADLs]: IND Surveillance [continuous indirect monitoring]: Q2h safety checks completed Patient-specific fall prevention interventions for sensory deficits provided, if applicable: Purposeful Rounding, Hourly Rounding, Non-skid shoes or socks when OOB, Use of Assistance Devices, Call Lombardo Within Reach, Room Near Nurses Station, Door Open, Light Adjusted for Specific Tasks, Person Items Within Reach, Bed in Lowest and Locked Position CARE PLAN EVALUATION: Problem: Adult Inpatient Plan of Care [...] Outcome: Ongoing (Interventions Implemented as Appropriate) Problem: Fall Injury Risk Goal: Absence of Fall and Fall-Related Injury Outcome: Ongoing (Interventions Implemented as Appropriate) Problem: Infection Goal: Absence of Infection Signs and Symptoms Outcome: Ongoing (Interventions Implemented as Appropriate) Problem: Fluid Imbalance (Heart Failure) Goal: Fluid Balance Outcome: Ongoing (Interventions Implemented as Appropriate) Problem: Respiratory Compromise (Heart Failure) Goal: Effective Oxygenation and Ventilation Outcome: Ongoing (Interventions Implemented as Appropriate) * Plan of Care - Magda Ramirez RN - 06/26/2023 6:54 AM EDT Complained of chronic chest pain (documented problem) at shift start, MD completed bedside review. Ordered EKG, completed. Problem: Adult Inpatient Plan of Care Goal: Plan of Care Review Outcome: Ongoing (Interventions Implemented as Appropriate) Goal: Patient-Specific Goal (Individualized) Outcome: Ongoing (Interventions Implemented as Appropriate) Goal: Absence of Hospital-Acquired Illness or Injury Outcome: Ongoing (Interventions Implemented as Appropriate) Goal: Optimal Comfort and Wellbeing Outcome: Ongoing (Interventions Implemented as Appropriate) Goal: Readiness for Transition of Care Outcome: Ongoing (Interventions Implemented as Appropriate) * Consult Note - Henrietta Judge MD - 06/25/2023 4:16 PM EDT Vascular Surgery Inpatient Consultation History of Present Illness: Loida Roque is a 53 y.o. female with non obstructive CAD (s/p cath 08/2019 with normal coronaries, cath 04/2023 with non obstructive CAD), SVT (s/p ablation), paroxysmal afib, HFpEF, pulmonary emboli (on Eliquis) who was admitted with chest and abdominal pain. The patient has undergone extensive workup for ACS and volume overload. She is being diuresed. She underwent a CT A/P for her abdominal pain which showed concern for SMA stenosis, for which vascular surgery is being consulted. Interval: -1.7L yesterday, no further diuresis today - Endorses some abdominal pain, no tenderness - No N/V Physical Exam: Vital Signs: Temp: [36.4 ??C (97.6 ??F)-36.7 ??C (98 ??F)] Heart Rate: [45-64] Resp: [16-23] BP: (97-113)/(48-61) SpO2: [96 %-100 %] Heart Rate from SpO2: -- BMI: Weight: 101.4 kg (223 lb 9.6 oz) BMI (Calculated): 38.14 BMI Classification: Obese General: alert, cooperative, NAD, resting comfortably HEENT: normocephalic, atraumatic CVS: Bradycardic Pulm: Breathing comfortably on RA Abd: not tender to palpation, non distended Ext: Palpable DP/PT bilaterally Neuro: Grossly nonfocal, moving all extremities. Labs: Last 3 wbc, hgb, hct plt Recent Labs 06/25/23 0150 06/24/23 0338 06/23/23 0412 WBC 7.2 6.9 8.2 HGB 14.4 13.6 14.3 HCT 42.9 40.7 43.1 PLATELET 241 220 233 Last 3 Lytes Recent Labs 06/25/23 0150 06/24/23 0338 06/23/23 0412 NA 139 138 137 K 3.4* 4.2 3.8 CL 102 104 103 CO2 25 21* 22 BUN 20* 20* 23* CREATININE 1.59* 1.14 1.08 Last 3 Coags No results for input(s): PT, INR, PTT in the last 168 hours. Vascular Imaging: CT Abdomen Pelvis: IMPRESSION 1. No acute process in the abdomen or pelvis. 2. Severe stenosis of the proximal SMA. 3. Bibasilar groundglass opacities, favored atelectasis given dependent predilection, however, a superimposed infectious/inflammatory process or alveolar edema is not excluded. EKG/Echo/Cath: Echo 06/22/23: Normal left ventricle size with mildly reduced LV systolic function. Mild global hypokinesis. LV ejection fraction is approximately 50%. Normal right ventricle. No significant valvular abnormalities. On comparison to the prior echo dated 04/17/2023, there has been a slight decrease in LV systolic function. Assessment: Loida Roque is a 53 y.o. female admitted with chest and abdominal pain. Her cardiac issues are being managed by cardiology and the cardiac hospitalist. Her presentation may be consistent with chronic mesenteric ischemia, however, the slices of the CT are wide and it is difficult to determinethe nature of her SMA disease. Her celiac and FERNANDO appear to be widely patent. At this time, her coronary issues take precedence, as there is no indication for emergent vascular intervention. Mesenteric duplex was non-diagnostic. At this time, as her pain is relatively chronic and not contributing to her cardiac issues, will plan for short interval outpatient workup and management of SMA stenosis unless the patient's condition worsens. Today we will arrange attempted repeat mesenteric duplex and outpatient discussion of intervention, as needed. We will sign off at this time, however please call with questions. Recommendation: - Diet as tolerated from vascular surgery standpoint - Continue aspirin, statin, anticoagulation Henrietta Judge MD 06/25/2023 4:16 PM * Consult Note - Alejandro Tellez MD - 06/24/2023 2:14 PM EDT [facility] [place] Department of Cardiology Consult Progress Note Reason for consult: chest pain Brief Course: Loida Roque is a 53 y.o. female with history of non- obstructive CAD, recent SVT ablation (03/31), paroxysmal afib (on eliquis), HFpEF, history of PE, and obesity hypoventilation disease, who is admitted for progressive fatigue, SOB, and chest pain. She has undergone extensive testing for chronic chest pain and shortness of breath to include cardiac catheterization, numerous echocardiograms, cardiac MRI, cardiac PET sarcoid scan. No clear etiology has been found to date asidefrom HFpEF and possible microvascular dysfunction. S: - Continue to have chest pain intermittently - Reports gaining 5lbs in the last few days EXAM/ DATA Vitals reviewed. Wt: 227lbs (221 on admission) Exam notable for no acute distress, 8cm JVP elevation, s1 and s2 without extra heart sounds, no rales, distended abdomen, trace to 1+ peripheral edema. Labs reviewed EKG reviewed. Imaging reviewed. Echocardiogram from 06/22/2023 reviewed: with mild reduction in LV function of 50% with normal RV and no valve pathology. Diastolic dysfunction based on tissue doppler. Catheterization from 04/18/23 reviewed: Left Main There was mild diffuse (<=25% [...] segment of the right coronary artery (RCA). cMRI - 04/21/2023 - mid myocardial stripe of LGE PET sarcoid - negative for sarcoid with anterior appearance of scar ASSESSMENT AND PLAN Loida Roque is a 53 y.o. female with history as noted above who presents with chest pain perhaps secondary to volume overload and microvascular disease. We have trialed imdur though she developed severe headaches so it was discontinued. At this phase, we have started and will increase Ranolazine for her microvascular disease and use diuretics to try and help her symptoms. Unfortunately, I am not sure that we will entirely relieve her chronic symptoms as the diagnosis remains elusive despite her extensive workup. Based on the cMRI and PET, sarcoid is not the most likely diagnosis and I think more likely she has chronic microvascular dysfunction and HFpEF. #Acute on Chronic HFpEF #Microvascular Angina #Volume Overload Recommendations: -Increase Ranolazine to 1000mg BID -Lasix IV 60mg BID until euvolemic then transition or oral Torsemide -Goal negative 1L per day until appears euvolemic -No further diagnostic testing at this time -Follow up with Dr. Kinsey in the outpatient setting once euvolemic and on stable dose of diuretic Case was discussed with Dr. Gómez who agrees with recommendations as documented above. Consult service will continue to follow patient. x Recommendations are above, please page if further consultation required. Alejandro Tellez MD [employer] [id number] Associated attestation - Willy Gómez MD - 06/24/2023 9:16 PM EDT Patient seen with Dr. Tellez. I think that her symptoms are due to a combination of microvasculardysfunction and HFpEF in the milieu of chronic metabolic disease, restrictive lung disease, and deconditioning. She has atherosclerotic disease with evidence of infarct, but no obstructive epicardial coronary disease. I don't think she has cardiac sarcoidosis. Very poor diastolic function based on tissue Doppler. Elevated proBNP. Unable to tolerate nitrates due to headache. Personally reviewed extensive cardiac imaging. Recommend diuresis, increase of antianginal therapies including Ranexa and amlodipine, cardiac rehab or structure exercise on discharge. * Consult Note - Gauri Vega MD - 06/24/2023 1:38 PM EDT Vascular Surgery Inpatient Consultation History of Present Illness: Loida Roque is a 53 y.o. female with non obstructive CAD (s/p cath 08/2019 with normal coronaries, cath 04/2023 with non obstructive CAD), SVT (s/p ablation), paroxysmal afib, HFpEF, pulmonary emboli (on Eliquis) who was admitted with chest and abdominal pain. The patient has undergone extensive workup for ACS and volume overload. She is being diuresed. She underwent a CT A/P for her abdominal pain which showed concern for SMA stenosis, for which vascular surgery is being consulted. Interval: Patient started on heparin drip Mesenteric duplex yesterday, unable to visualize SMA due to bowel gas No change in abdominal pain this morning. Patient tolerated dinner last night with her usual amountof pain afterwards Physical Exam: Vital Signs: Temp: [36.3 ??C (97.4 ??F)-36.6 ??C (97.9 ??F)] Heart Rate: [47-60] Resp: [16-18] BP: (100-113)/(51-77) SpO2: [97 %-100 %] Heart Rate from SpO2: -- BMI: Weight: 103 kg (227 lb) BMI (Calculated): 38.14 BMI Classification: Obese General: alert, cooperative, NAD, resting comfortably HEENT: normocephalic, atraumatic CVS: Bradycardic Pulm: Breathing comfortably on RA Abd: not tender to palpation, non distended Ext: Palpable DP/PT bilaterally Neuro: Grossly nonfocal, moving all extremities. Labs: Last 3 wbc, hgb, hct plt Recent Labs 06/24/23 0338 06/23/23 0412 06/22/23 0434 WBC 6.9 8.2 7.5 HGB 13.6 14.3 12.8 HCT 40.7 43.1 39.1 PLATELET 220 233 225 Last 3 Lytes Recent Labs 06/24/23 0338 06/23/23 0412 06/22/23 0434 NA 138 137 138 K 4.2 3.8 3.9 CL 104 103 102 CO2 21* 22 19* BUN 20* 23* 22* CREATININE 1.14 1.08 1.19 Last 3 Coags No results for input(s): PT, INR, PTT in the last 168 hours. Vascular Imaging: CT Abdomen Pelvis: IMPRESSION 1. No acute process in the abdomen or pelvis. 2. Severe stenosis of the proximal SMA. 3. Bibasilar groundglass opacities, favored atelectasis given dependent predilection, however, a superimposed infectious/inflammatory process or alveolar edema is not excluded. EKG/Echo/Cath: Echo 06/22/23: Normal left ventricle size with mildly reduced LV systolic function. Mild global hypokinesis. LV ejection fraction is approximately 50%. Normal right ventricle. No significant valvular abnormalities. On comparison to the prior echo dated 04/17/2023, there has been a slight decrease in LV systolic function. Assessment: Loida Roque is a 53 y.o. female admitted with chest and abdominal pain. Her cardiac issues are being managed by cardiology and the cardiac hospitalist. Her presentation may be consistent with chronic mesenteric ischemia, however, the slices of the CT are wide and it is difficult to determinethe nature of her SMA disease. Her celiac and FERNANDO appear to be widely patent. At this time, her coronary issues take precedence, as there is no indication for emergent vascular intervention, however,further imaging of her SMA with a duplex would be helpful in guiding management. At this time, as her pain is relatively chronic and not contributing to her cardiac issues, will plan for short interval outpatient workup and management of SMA stenosis unless the patient's condition worsens. When patient is being discharged, vascular surgery can arrange for attempted repeat mesenteric duplex and outpatient discussion of intervention, as needed. Recommendation: - Diet as tolerated from vascular surgery standpoint - Continue aspirin, statin, anticoagulation Gauri Vega MD 06/24/2023 1:38 PM * Care Management - Arianna Villarreal RN - 06/24/2023 11:12 AM EDT OFFICE OF CARE MANAGEMENT PROGRESS NOTE LOS: Hospital Day 10 days Chart reviewed, care reviewed with primary team and at interdisciplinary rounds. Patient continues to meet inpatient level of care related to: anticipating Vascular surgery procedure for SMA stenosis. Decision Maker: Self Functional status prior to admission: Independent Home Environment: Others in the home: spouse (Mother lives close by). Current Living Arrangements: home/apartment/condo. Accessibility Concerns: Has 5 steps but also has a ramp / her bedroom is upstairs in her two level home. Current Functional Ability: Independent DME used at home: other (see comments) (Has CPAP provided through [employer]) DME Needed at Discharge: No Patient is insured through: Primary Insurance: [place] / Plan[place] / Product Type: *No Product type* / Secondary Insurance: N/A Plan for discharge is: Home w/o Services Outpatient Agency/Support Group Needs: None Agency Referrals: Not Applicable at this time. Transportation: taxi voucher Barriers to discharge: Discharge planning Plan going forward: Continue to monitor dc needs pending hospital course. Care Management will continue to follow and assist with discharge planning and coordination of careas indicated. Anticipated Date of Discharge: 06/26/2023 BEA Killian, RN Inpatient [employer]- Cardiology Office of Care Management Pager #: [phone] * Plan of Care - Alejandro Davenport RN - 06/24/2023 5:21 AM EDT Shift Summary: Assumed care of pt at 1900. See VS and assessments as charted. Patient Alert and Oriented x4. No complaints of CP or SOB. O2 CPAP at night, otherwise RA. NSR on tele, see scanned docs.Hep Gtt. Frequent rounding provided for comfort and safety, call light in reach. Plan of care ongoing. Plan Moving Forwards: NPO for mesenteric duplex this AM Care Plan Outcome Evaluation: Problem: Adult Inpatient Plan of Care Goal: [...] as Appropriate) * Plan of Care - Paradise Paz RN - 06/23/2023 6:16 PM EDT Problem: Adult Inpatient Plan of [...] Implemented as Appropriate) * Consult Note - Henrietta Judge MD - 06/23/2023 6:45 AM EDT Vascular Surgery Inpatient Consultation History of Present Illness: Loida Roque is a 53 y.o. female with non obstructive CAD (s/p cath 08/2019 with normal coronaries, cath 04/2023 with non obstructive CAD), SVT (s/p ablation), paroxysmal afib, HFpEF, pulmonary emboli (on Eliquis) who was admitted with chest and abdominal pain. The patient has undergone extensive workup for ACS and volume overload. She is being diuresed. She underwent a CT A/P for her abdominal pain which showed concern for SMA stenosis, for which vascular surgery is being consulted. Interval: Eliquis diiscontinued 06/21 NPO for mesenteric duplex this AM No abdominal pain this morning Physical Exam: Vital Signs: Temp: [36.3 ??C (97.4 ??F)-36.7 ??C (98.1 ??F)] Heart Rate: [44-60] Resp: [16-18] BP: (89-113)/(49-65) SpO2: [94 %-100 %] Heart Rate from SpO2: -- BMI: Weight: 102.1 kg (225 lb) BMI (Calculated): 38.14 BMI Classification: Obese General: alert, cooperative, NAD, resting comfortably HEENT: normocephalic, atraumatic CVS: Bradycardic Pulm: Breathing comfortably on RA Abd: not tender to palpation, non distended Ext: Palpable DP/PT bilaterally Neuro: Grossly nonfocal, moving all extremities. Labs: Last 3 wbc, hgb, hct plt Recent Labs 06/23/23 0412 06/22/23 0434 06/21/23 0325 WBC 8.2 7.5 9.3 HGB 14.3 12.8 14.9 HCT 43.1 39.1 44.2 PLATELET 233 225 279 Last 3 Lytes Recent Labs 06/23/23 0412 06/22/23 0434 06/21/23 0558 06/21/23 0325 NA 137 138 -- 138 K 3.8 3.9 4.0 Not Perf CL 103 102 -- 100 CO2 22 19* -- 26 BUN 23* 22* -- 27* CREATININE 1.08 1.19 -- 1.11 Last 3 Coags No results for input(s): PT, INR, PTT in the last 168 hours. Vascular Imaging: CT Abdomen Pelvis: IMPRESSION 1. No acute process in the abdomen or pelvis. 2. Severe stenosis of the proximal SMA. 3. Bibasilar groundglass opacities, favored atelectasis given dependent predilection, however, a superimposed infectious/inflammatory process or alveolar edema is not excluded. EKG/Echo/Cath: Echo 06/22/23: Normal left ventricle size with mildly reduced LV systolic function. Mild global hypokinesis. LV ejection fraction is approximately 50%. Normal right ventricle. No significant valvular abnormalities. On comparison to the prior echo dated 04/17/2023, there has been a slight decrease in LV systolic function. Assessment: Loida Roque is a 53 y.o. female admitted with chest and abdominal pain. Her cardiac issues are being managed by cardiology and the cardiac hospitalist. Her presentation may be consistent with chronic mesenteric ischemia, however, the slices of the CT are wide and it is difficult to determinethe nature of her SMA disease. Her celiac and FERNANDO appear to be widely patent. At this time, her coronary issues take precedence, as there is no indication for emergent vascular intervention, however,further imaging of her SMA with a duplex would be helpful in guiding management. Recommendation: - Mesenteric duplex this morning, but otherwise can have diet as tolerated from vascular surgery standpoint - Continue aspirin, statin, anticoagulation x Consult service will continue to follow patient. Recommendations are above, please page if further consultation required. Henrietta Judge MD 06/23/2023 9:08 PM * Plan of Care - Praadise Paz RN - 06/22/2023 6:43 PM EDT OUTCOME EVALUATION NOTE: OUTCOME SUMMARY: Patient A&OX4. OOB independently. Patient reporting 6/10 left breast pain after breakfast, worsening with activity to 10/10 after a BM. Diaphoretic, nausea, pain radiating to back and down left arm. Simethicone/BMX given. SL nitro X1 given, with some relief I'll take the nitro and worry about my migraines later if I get one. SBP 112 -[address] scan - SMA stenosis - vascular surg discussed with patient for inpatient vs. Outpatient procedure. Cardiology consulted. Skin - RUE with old OSH IV site, ecchymosis. C/O pain at site, red, swelling, warmth. Arm elevated, heat/ice applied with patient request this has happened in the past.. Duplex completed with pt hx. PLAN MOVING FORWARD: Pain control Ambulate Vasc Surg Cx CPG GOAL OUTCOME EVALUATION: Problem: Adult Inpatient Plan of Care Goal: Plan of Care Review 06/22/20231842 by Paradise Paz RN Outcome: Ongoing (Interventions Implemented as Appropriate) 06/22/20231841 by Paradise Paz RN Outcome: Ongoing (Interventions Implemented as Appropriate) Goal: Patient-Specific Goal (Individualized) 06/22/20231842 by Paradise Paz RN Outcome: Ongoing (Interventions Implemented as Appropriate) 06/22/20231841 by Paradise Paz RN Outcome: Ongoing (Interventions Implemented as Appropriate) Goal: Absence of Hospital-Acquired Illness or Injury 06/22/20231842 by aPradise Paz RN Outcome: Ongoing (Interventions Implemented as Appropriate) 06/22/20231841 by Paradise Paz RN Outcome: Ongoing (Interventions Implemented as Appropriate) Goal: Optimal Comfort and Wellbeing 06/22/20231842 by Paradise Paz RN Outcome: Ongoing (Interventions Implemented as Appropriate) 06/22/20231841 by Paradise Paz RN Outcome: Ongoing (Interventions Implemented as Appropriate) Goal: Readiness for Transition of Care 06/22/2023 184 by Paradise Paz RN Outcome: Ongoing (Interventions Implemented as Appropriate) 06/22/20231841 by Paradise Paz RN Outcome: Ongoing (Interventions Implemented as Appropriate) Problem: Chest Pain Goal: Resolution of Chest Pain Symptoms Outcome: Ongoing (Interventions Implemented as Appropriate) * Consult Note - Gauri Vega MD - 06/22/2023 4:08 PM EDT Patient Name: Loida Roque Patient Age: 53 y.o. Birthdate: 1970 Admit date: 06/14/2023 Attending Physician: Ailyn Irvin MD Vascular Surgery Inpatient Consultation Date of Consultation: 06/22/2023 Consult Service: Vascular Surgery Place of Service: ( ) Emergency Department (x) Inpatient Unit ( ) Critical care Responsible Attending: Dr. Kamara Reason for Consult: We are seeing Loida Roque at the request of Dr. Ailyn Irvin MD in consultation for chronic mesenteric ischemia. I have reviewed the available records, interviewed andexamined the patient. History of Present Illness: Loida Roque is a 53 y.o. female with non obstructive CAD (s/p cath 08/2019 with normal coronaries, cath 04/2023 with non obstructive CAD), SVT (s/p ablation), paroxysmal afib, HFpEF, pulmonary emboli (on Eliquis) who was admitted with chest and abdominal pain. The patient has undergone extensive workup for ACS and volume overload. She is being diuresed. She underwent a CT A/P for her abdominal pain which showed concern for SMA stenosis, for which vascular surgery is being consulted. The patient is unable to say how long she has had abdominal pain for, but believes it has been a few months. She denies any weight loss. The pain is diffuse and intermittent. She states it is worse with eating. She also endorses nausea, particularly after eating. She denies any melena or hematemesis. Her last bowel movement was this morning which she states was normal. She is also endorsing worsening chest pain although her troponins have been negative. She is getting a repeat echo today. 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 Started on toprol 03/2023: Successful AVNRT ablation Obesity Dyslipidemia Obstructive sleep apnea syndrome Insomnia (HFpEF) heart failure with preserved ejection fraction Overview Note: 05/2021: subacute, presented to [facility] with RUQ pain, weight gain, and progressive [...] PET (sarcoid): no sarcoid. Anterior scar pattern Restless legs Asthma Active Hospital Problems Diagnosis NSTEMI (non-ST elevated myocardial infarction) Resolved Hospital Problems No resolved problems to display. Active Non-Hospital Problems Diagnosis Endometriosis Stenosis of left carotid artery greater than 50% Restrictive lung disease secondary to obesity Paresthesia of hand, bilateral Paroxysmal atrial fibrillation SVT (supraventricular tachycardia) Obesity Dyslipidemia Obstructive sleep apnea syndrome Insomnia (HFpEF) heart failure with preserved ejection fraction Restless legs Asthma Review of Systems: A full review encompassing at least 10 organ systems including general, neuro, pulm, cardiac, GI, , MSK, Endo, and Psych was negative other than listed in the HPI. Past Medical History: Past Medical History: Diagnosis Date Asthma Bilateral carpal tunnel syndrome 03/18/2023 Bilateral renal artery stenosis 03/18/2023 Depression Endometriosis S/p hysterectomy GERD (gastroesophageal reflux disease) 03/18/2023 Hx of supraventricular tachycardia 03/18/2023 Infiltrate of lower lobe of left lung present on imaging study 03/18/2023 Insomnia Left facial numbness 03/18/2023 Left lateral epicondylitis 03/18/2023 Left wrist pain 03/18/2023 Migraine Obesity (BMI 30-39.9) MARYLOU on CPAP Seasonal allergies Past Surgical History: Past Surgical History: Procedure Laterality Date HYSTERECTOMY Social Hx: Social History Socioeconomic History Marital status: Spouse name: Not on file Number of children: Not on file Years of education: Not on file Highest education level: Not on file Occupational History Not on file Tobacco Use Smoking status: Never Smokeless tobacco: Never Vaping Use Vaping Use: Never used Substance and Sexual Activity Alcohol use: Never Drug use: Never Sexual activity: Yes Other Topics Concern Not on file 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 , 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 Lives in [facility] Social Determinants of Health Financial Resource [...] file Intimate Partner Violence: Not At Risk (06/14/2023) IPV Inpatient Questions Prevent Contact with Others: no Feels Threatened by Someone: no Feels Unsafe at Home: no Physical Signs of Abuse Present: no Housing Stability: High Risk (06/15/2023) Housing Stability Vital Sign Unable to Pay for Housing in the Last Year: Yes Number of Places Lived in the Last Year: 1 Unstable Housing in the Last Year: No Family Hx: Negative for Thrombosis, Bleeding Disorders, Family History Problem Relation Age of Onset Hypertension Mother Arrhythmia Father Heart Surgery Father Myocardial Infarction Father Coronary Artery Disease Father Medications: No current facility-administered medications on file prior to encounter. Current Outpatient Medications on File Prior to Encounter Medication Sig Dispense Refill metOLazone (Zaroxolyn) 2.5 mg tablet Take 1 tablet by mouth as needed (take daily for weight gain +increasing shortness of breath. take 30-60 minutes prior to a dose of torsemide). 30 tablet 0 rimegepant (Nurtec ODT) 75 mg disintegrating tablet Take 75 mg by mouth daily. torsemide (Demadex) 20 mg tablet Take 2 tablets by mouth 2 times daily. atorvastatin (Lipitor) 40 mg tablet Take 1 tablet by mouth every evening. (Patient taking differently: Take 40 mg by mouth 2 times daily.) 90 tablet 3 nitroGLYcerin (Nitrostat) 0.[address] [...] as needed. fluticasone propionate (FLONASE) 50 mcg/actuation [place], Suspension 1 spray by Each Nare route [...] extremities Clobetasol Rash Other reaction(s): Skin Rash Physical Exam: Vital Signs: Temp: [35.9 ??C (96.6 ??F)-36.7 ??C (98 ??F)] Heart Rate: [42-81] Resp: [16-22] BP: (101-149)/(51-84) SpO2: [95 %-100 %] Heart Rate from SpO2: -- BMI: Weight: 102.1 kg (225 lb) BMI (Calculated): 38.14 BMI Classification: Obese General: alert, cooperative, NAD, resting comfortably HEENT: normocephalic, atraumatic CVS: Bradycardic Pulm: Breathing comfortably on 3L NC Abd: soft, diffuse mild tenderness to palpation, non distended Ext: Palpable DP/PT bilaterally Neuro: Grossly nonfocal, moving all extremities. Labs: Last 3 wbc, hgb, hct plt Recent Labs 06/22/23 0434 06/21/23 0325 06/20/23 0332 WBC 7.5 9.3 10.1* HGB 12.8 14.9 14.2 HCT 39.1 44.2 41.5 PLATELET 225 279 253 Last 3 Lytes Recent Labs 06/22/23 0434 06/21/23 0558 06/21/235 06/20/23 0332 NA 138 -- 138 137 K 3.9 4.0 Not Perf 3.7 CL 102 -- 100 102 CO2 19* -- 26 22 BUN 22* -- 27* 26* CREATININE 1.19 -- 1.11 1.12 Last 3 Coags No results for input(s): PT, INR, PTT in the last 168 hours. Vascular Imaging: CT Abdomen Pelvis: IMPRESSION 1. No acute process in the abdomen or pelvis. 2. Severe stenosis of the proximal SMA. 3. Bibasilar groundglass opacities, favored atelectasis given dependent predilection, however, a superimposed infectious/inflammatory process or alveolar edema is not excluded. EKG/Echo/Cath: Echo 06/22/23: Normal left ventricle size with mildly reduced LV systolic function. Mild global hypokinesis. LV ejection fraction is approximately 50%. Normal right ventricle. No significant valvular abnormalities. On comparison to the prior echo dated 04/17/2023, there has been a slight decrease in LV systolic function. Assessment: Loida Roque is a 53 y.o. female admitted with chest and abdominal pain. Her cardiac issues are being managed by cardiology and the cardiac hospitalist. Her presentation may be consistent with chronic mesenteric ischemia, however, the slices of the CT are wide and it is difficult to determinethe nature of her SMA disease. Her celiac and FERNANDO appear to be widely patent. At this time, her coronary issues take precedence, as there is no indication for emergent vascular intervention, however,further imaging of her SMA with a duplex would be helpful in guiding management. Recommendation: - Mesenteric duplex to better characterize SMA stenosis, patient should be fasting for study but otherwise can have diet as tolerated from vascular surgery standpoint - Continue aspirin, statin, anticoagulation x Consult service will continue to follow patient. Recommendations are above, please page if further consultation required. Gauri Vega MD 06/22/2023 4:11 PM Associated attestation - Carlota Kamara MD - 06/23/2023 7:42 AM EDT I have seen and examined the patient, providing chavis components as outlined below. I have reviewed the resident???s above note; my evaluation of the patient is below: Pt admitted with CP and NSTEMI. Patient also complains of abdominal bloating, and postprandial pain approximately 30 minutes after eating. This has been ongoing for approximately a year according to the patient. She reports weight gain, no weight loss. She does report some food fear. On exam her abdomen is soft, nontender. Subjectively she notes diffuse aching in her abdomen at this time, she had just eaten an entire tray of food. CT reviewed noting high-grade stenosis of the proximal SMA, though the slices are thick, and difficult to fully delineate. The remainder of the SMA, celiac, and FERNANDO are widely patent. Difficult to distinguish robust collaterals between her celiac and SMA (GDA difficult to visualize) Discussed with her that did is possible she has a component of chronic mesenteric ischemia, though her weight gain, and tolerance of full trays of food is not entirely consistent, however given the lack of robust collaterals between her celiac and SMA and high-grade stenosis certainly suggest this possibility. High-grade SMA stenosis with likely chronic mesenteric ischemia. No evidence of acute mesenteric ischemia at this time. Plan for mesenteric duplex to further delineate the degree of stenosis (hold off on CTA) Discussed with her, would likely benefit from SMA stenting at interval. At this time I do not feel that this is driving her other underlying cardiac issues, I recommend continued ongoing workup from a cardiology standpoint. Reviewed with her that this could be done at a short interval as an outpatient versus potentially as an inpatient pending her course with from cardiac standpoint Carlota Kamara MD * Plan of Care - Alejandro Davenport, RN - 06/22/2023 3:16 AM EDT Shift Summary: Assumed care of pt at 1900. See VS and assessments as charted. Patient Alert and Oriented x4. No complaints of CP or SOB. O2 RA. NSR on tele, see scanned docs. Frequent rounding provided for comfort and safety, bed alarm on, call light in reach. Plan of care ongoing. Plan Moving Forwards: D/C planning asa appropriate Care Plan Outcome Evaluation: Problem: Adult Inpatient Plan of Care Goal: Plan of Care Review Outcome: Ongoing (Interventions Implemented as Appropriate) Goal: Patient-Specific Goal (Individualized) Outcome: Ongoing (Interventions Implemented as Appropriate) Goal: Absence of Hospital-Acquired Illness or Injury Outcome: Ongoing (Interventions Implemented as Appropriate) Goal: Optimal Comfort and Wellbeing Outcome: Ongoing (Interventions Implemented as Appropriate) Goal: Readiness for Transition of Care Outcome: Ongoing (Interventions Implemented as Appropriate) * Care Management - Jessee Lake RN - 06/21/2023 10:14 AM EDT OFFICE OF CARE MANAGEMENT PROGRESS NOTE LOS: Hospital Day 7 days Chart reviewed, care reviewed with primary team and at interdisciplinary rounds. Patient continues to meet inpatient level of care related to: chest pain Decision Maker: Self Functional status prior to admission: Independent Home Environment: Others in the home: spouse (Mother lives close by). Current Living Arrangements: home/apartment/condo. Accessibility Concerns: Has 5 steps but also has a ramp / her bedroom is upstairs in her two level home. Current Functional Ability: Independent DME used at home: other (see comments) (Has CPAP provided through [facility]) DME Needed at Discharge: No Patient is insured through: Primary Insurance: [place] Pay[place] / Plan[place] / Product Type: *No Product type* / Secondary Insurance: N/A Last Physical Therapy Recommendation: n/a Last Occupational Therapy Recommendation: n/a Plan for discharge is: Home w/o Services Agency Referrals: n/a Transportation: taxi voucher Barriers to discharge: Discharge planning Plan going forward: Patient not medically ready to discharge. Continues to need diuresing. Anticipate patient to discharge home when medically ready. Care Management will continue to follow and assist with discharge planning and coordination of careas indicated. Anticipated Date of Discharge: 06/23/2023 Jessee [place] RN Case Manager Pgr: [phone] * Plan of Care - Opal Traore RN - 06/21/2023 3:27 AM EDT OUTCOME EVALUATION NOTE: OUTCOME SUMMARY: Assumed care of pt at 1900. A&Ox4. VSS. SB on tele. Using CPAP while asleep. Heat packs appliedfor stomach cramping. PRN simethicone given. Voiding in hat. Frequent rounding for comfort and safety, call light within reach. PLAN MOVING FORWARD: D/c planning as appropriate CPG GOAL OUTCOME EVALUATION: [...] Care Outcome: Ongoing (Interventions Implemented as Appropriate) * Plan of Care - Bailey Green RN - 06/19/2023 5:11 PM EDT OUTCOME EVALUATION NOTE: OUTCOME SUMMARY: Assumed care at 0700. Pt A&Ox4. No reports of CP or SOB. Denies pain. Remains on RA O2. Ambulated in room independently. SB on tele. See scanned docs. Questions answered throughout shift. Call lombardo and personal belongings within reach. PLAN MOVING FORWARD: IV diuresis. D/C planning as appropriate. INDIVIDUALIZED FALL PREVENTION INTERVENTIONS: Patient-specific fall risk factors per assessment: [current deficits]: Tele wires, unfamiliar environment Assistance [level of assistance required for transfers and ambulation]: Independent Supervision [direct monitoring required during toileting and ADLs]: Independent Surveillance [continuous indirect monitoring]: Telemetry, purposeful rounding, call lombardo within reach CPG GOAL OUTCOME EVALUATION: Ongoing Problem: Adult [...] Care Outcome: Ongoing (Interventions Implemented as Appropriate) * Plan of Care - Aaron Caban RN - 06/19/2023 5:59 AM EDT Assumed care of patient at 1900. Patient had an uneventful shift until approximately 0415, patient began experiencing 7/10 chest pain, MD notified, EKG obtained, 3 SL nitro given which resolved the pain. Patient experienced a headache all throughout shift. Provider notified, medication ordered. Yobani tionally heat at the base of the neck seemed to help. Patient used CPAP while asleep. Vital signs stable throughout shift, view assessment flowsheet for additional details. Problem: Adult Inpatient Plan of Care Goal: Plan of Care Review 06/19/2023 0559 by Aaron Caban RN Outcome: Ongoing (Interventions Implemented as Appropriate) 06/19/2023245 by Aaron Caban RN Outcome: Ongoing (Interventions Implemented as Appropriate) Goal: Patient-Specific Goal (Individualized) 06/19/2023 0559 by Aaron Caban RN Outcome: Ongoing (Interventions Implemented as Appropriate) 06/19/2023245 by Aaron Caban RN Outcome: Ongoing (Interventions Implemented as Appropriate) Goal: Absence of Hospital-Acquired Illness or Injury 06/19/2023 0559 by Aaron Caban RN Outcome: Ongoing (Interventions Implemented as Appropriate)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 unspecified type HEMOGRAM Routine 06/26/2023 4:06 AM EDT DIFFERENTIAL, AUTOMATED Routine 06/26/2023 4:06 AM EDT HC CBC,PLT & AUTO DIFF Routine 4:06 AM EDT HC PHOSPHORUS, SERUM Routine 06/26/2023 4:06 AM EDT HC MAGNESIUM, SERUM Routine 06/26/2023 4 :06 AM EDT BASIC METABOLIC PANEL (NON-FASTING) Routine 06/26/2023 4:06 AM EDT HEMOGRAM Routine 06/25/2023 1:50 AM EDT DIFFERENTIAL, AUTOMATED Routine 06/25/2023 1:50 AM EDT HC CBC,PLT & AUTO DIFF Routine 1:50 AM EDT HC PHOSPHORUS, SERUM Routine 06/25/2023 1:50 AM EDT HC MAGNESIUM, SERUM Routine 06/25/2023 1 :50 AM EDT BASIC METABOLIC PANEL (NON-FASTING) Routine 06/25/2023 1:50 AM EDT HC UNFRACTIONATED HEPARIN (HEP UFH) Timed 06/24/2023 3:38 AM EDT HEMOGRAM Routine 06/24/2023 3:38 AM EDT DIFFERENTIAL, AUTOMATED Routine 06/24/2023 3:38 AM EDT HC VENIPUNCTURE Routine 06/24/2023 3:38 AM EDT HC PHOSPHORUS, SERUM Routine 06/24/2023 3:38 AM EDT PRO-BRAIN NATRIURETIC PEPTIDE Routine 06/24/2023 3:38 AM EDT HC MAGNESIUM, SERUM Routine 06/24/2023 3 :38 AM EDT BASIC METABOLIC PANEL (NON-FASTING) Routine 06/24/2023 3:38 AM EDT HC UNFRACTIONATED HEPARIN (HEP UFH) Timed 06/23/2023 9:24 PM EDT MESENTERIC COMPLETE Routine 06/23/2023 3 :36 PM EDT Lower abdominal pain HC UNFRACTIONATED HEPARIN (HEP UFH) Timed 06/23/2023 3:01 PM EDT EKG 12-LEAD Routine 06/23/2023 9:54 AM EDT NSTEMI (non-ST elevated myocardial infarction) HC VENIPUNCTURE Timed 06/23/2023 4:12 AM EDT HEMOGRAM Routine 06/23/2023 4:12 AM EDT DIFFERENTIAL, AUTOMATED Routine 06/23/2023 4:12 AM EDT HC CBC,PLT & AUTO DIFF Routine 4:12 AM EDT HC PHOSPHORUS, SERUM Routine 06/23/2023 4:12 AM EDT HC MAGNESIUM, SERUM Routine 06/23/2023 4 :12 AM EDT BASIC METABOLIC PANEL (NON-FASTING) Routine 06/23/2023 4:12 AM EDT ECHO LMTD W CONTRAST W [...] 10:55 AM EDT Chest pain, unspecified type HEMOGRAM Routine 06/22/2023 4:34 AM EDT DIFFERENTIAL, AUTOMATED Routine 06/22/2023 4:34 AM EDT HC CBC,PLT & AUTO DIFF Routine 4:34 AM EDT HC PHOSPHORUS, SERUM Routine 06/22/2023 4:34 AM EDT HC MAGNESIUM, SERUM Routine 06/22/2023 4 :34 AM EDT BASIC METABOLIC PANEL (NON-FASTING) Routine 06/22/2023 4:[address] ABDOMEN AND PELVIS W CONTRAST Routine 06/21/2023 3:39 PM EDT EKG 12-LEAD Routine 06/21/2023 10:06 AM EDT Chest pain, unspecified type NSTEMI (non-ST elevated myocardial infarction) HC VENIPUNCTURE STAT 06/21/2023 9:45 AM EDT HC VENIPUNCTURE Routine 06/21/2023 5:58 AM EDT PRO-BRAIN NATRIURETIC PEPTIDE Routine 06/21/2023 5:58 AM EDT HEMOGRAM Routine 06/21/2023 3:25 AM EDT DIFFERENTIAL, AUTOMATED Routine 06/21/2023 3:25 AM EDT HC VENIPUNCTURE Routine 06/21/2023 3:25 AM EDT HC PHOSPHORUS, SERUM Routine 06/21/2023 3:25 AM EDT HC MAGNESIUM, SERUM Routine 06/21/2023 3 :25 AM EDT BASIC METABOLIC PANEL (NON-FASTING) Routine 06/21/2023 3:25 AM EDT HEMOGRAM Routine 06/20/2023 3:32 AM EDT DIFFERENTIAL, AUTOMATED Routine 06/20/2023 3:32 AM EDT HC CBC,PLT & AUTO DIFF Routine 3:32 AM EDT HC PHOSPHORUS, SERUM Routine 06/20/2023 3:32 AM EDT HC MAGNESIUM, SERUM Routine 06/20/2023 3 :32 AM EDT BASIC METABOLIC PANEL (NON-FASTING) Routine 06/20/2023 3:32 AM EDT HC PHOSPHORUS, SERUM Routine 06/19/2023 5:26 PM EDT HC MAGNESIUM, SERUM Routine 06/19/2023 5 :26 PM EDT BASIC METABOLIC PANEL (NON-FASTING) Routine 06/19/2023 5:26 PM EDT EKG 12-LEAD STAT 06/19/2023 4:24 AM EDT Paroxysmal atrial fibrillation HEMOGRAM Routine 06/19/2023 3:22 AM EDT DIFFERENTIAL, AUTOMATED Routine 06/19/2023 3:22 AM EDT HC CBC,PLT & AUTO DIFF Routine 3:22 AM EDT HC PHOSPHORUS, SERUM Routine 06/19/2023 3:22 AM EDT HC MAGNESIUM, SERUM Routine 06/19/2023 3 :22 AM EDT BASIC METABOLIC PANEL (NON-FASTING) Routine 06/19/2023 3:22 AM EDT BASIC METABOLIC PANEL (NON-FASTING) Routine 06/18/2023 5:17 PM EDT HEMOGRAM Routine 06/18/2023 4:19 AM EDT DIFFERENTIAL, AUTOMATED Routine 06/18/2023 4:19 AM EDT HC VENIPUNCTURE Routine 06/18/2023 4:19 AM EDT HC PHOSPHORUS, SERUM Routine 06/18/2023 4:19 AM EDT HC MAGNESIUM, SERUM Routine 06/18/2023 4 :19 AM EDT BASIC METABOLIC PANEL (NON-FASTING) Routine 06/18/2023 4:19 AM EDT HC PHOSPHORUS, SERUM Timed 06/17/2023 2:26 PM EDT HC MAGNESIUM, SERUM Timed 06/17/2023 2 :26 PM EDT BASIC METABOLIC PANEL (NON-FASTING) Timed 06/17/2023 2:26 PM EDT XR ABDOMEN FLAT AND UPRIGHT Routine 06/17/2023 11:44 AM EDT BASIC METABOLIC PANEL (NON-FASTING) STAT 06/17/2023 5:01 AM EDT HEMOGRAM Routine 06/17/2023 1:11 AM EDT DIFFERENTIAL, AUTOMATED Routine 06/17/2023 1:11 AM EDT HC CBC,PLT & AUTO DIFF Routine 1:11 AM EDT HC MAGNESIUM, SERUM Routine 06/17/2023 1 :11 AM EDT BASIC METABOLIC PANEL (NON-FASTING) STAT 06/17/2023 1:11 AM EDT BASIC METABOLIC PANEL (NON-FASTING) STAT 06/16/2023 8:28 PM EDT BASIC METABOLIC PANEL (NON-FASTING) STAT 06/16/2023 2:29 PM EDT BASIC METABOLIC PANEL (NON-FASTING) STAT 06/16/2023 9:01 AM EDT HC VENIPUNCTURE Timed 06/16/2023 3:30 AM EDT HEMOGRAM Routine 06/16/2023 3:30 AM EDT DIFFERENTIAL, AUTOMATED Routine 06/16/2023 3:30 AM EDT HC CBC,PLT & AUTO DIFF Routine 3:30 AM EDT MAGNESIUM Routine 06/16/2023 3:30 AM EDT LIPID PANEL (REFLEX DIRECT LDL) Routine 06/16/2023 3:30 AM EDT BASIC METABOLIC PANEL (NON-FASTING) STAT 06/16/2023 3:30 AM EDT HC UNFRACTIONATED HEPARIN (HEP UFH) Timed 06/15/2023 9:33 PM EDT BASIC METABOLIC PANEL (NON-FASTING) STAT 06/15/2023 9:33 PM EDT MAGNESIUM STAT 06/15/2023 5:47 PM EDT BASIC METABOLIC PANEL (NON-FASTING) STAT 06/15/2023 5:47 PM EDT RAPID DRUG SCREEN, URINE (TEE REQUEST) Routine 06/15/2023 4:46 PM EDT RAPID DRUG SCREEN W/O CONFIRMATION, URINE Routine 06/15/2023 4:46 PM EDT HC VENIPUNCTURE Timed 06/15/2023 2:29 PM EDT BASIC METABOLIC PANEL (NON-FASTING) STAT 06/15/2023 2:29 PM EDT EKG 12-LEAD STAT 06/15/2023 10:50 AM EDT Paroxysmal atrial fibrillation HC TROPONIN T STAT 06/15/2023 8:18 AM EDT HC UNFRACTIONATED HEPARIN (HEP UFH) Timed 06/15/2023 8:18 AM EDT BASIC METABOLIC PANEL (NON-FASTING) STAT 06/15/2023 8:18 AM EDT HC TROPONIN T STAT 06/15/2023 4:28 AM EDT HEMOGRAM Routine 06/15/2023 4:28 AM EDT DIFFERENTIAL, AUTOMATED Routine 06/15/2023 4:28 AM EDT HC PROTHROMBIN TIME Routine 06/15/2023 4 :28 AM EDT HC CBC,PLT & AUTO DIFF Routine 4:28 AM EDT HC THYROID STIMULATING HORMONE, SERUM Routine 06/15/2023 4:28 AM EDT HC PHOSPHORUS, SERUM Routine 06/15/2023 4:28 AM EDT HC PROBNP Routine 06/15/2023 4:28 AM EDT HC MAGNESIUM, SERUM Routine 06/15/2023 4 :28 AM EDT HC CALCIUM, SERUM Routine 06/15/2023 4:2 8 AM EDT HEPATIC FUNCTION PANEL Routine 4:28 AM EDT BASIC METABOLIC PANEL (NON-FASTING) Routine 06/15/2023 4:28 AM EDT EKG 12-LEAD Routine 06/15/2023 2:17 AM EDT Chest pain, unspecified type documented in this encounter Results * (ABNORMAL) Basic Metabolic Panel (non-fasting) (08/25/2023 11:28 AM EDT) Glucose Lvl 111 65 - 199 mg/dL [facility] Comment:Diabetes: >=200 mg/d L plus symptoms BUN 29(H) 8 - 18 mg/dL [facility] Creatinine 1.41(H) 0.70 - 1.20 mg/dL [facility] Sodium 140 135 - 145 mmol/L [facility] Potassium 3.6 3.5 - 5.0 mmol/L [facility] Comment: Please note: ??Patients with WBC >100,000 may have falsely elevated Potassium levels. ??For accurate Potassium quantification in these patients send serum separator tube (gold top) for subsequent determinations. ??Contact the Clinical Chemistry Laboratory if there are any questions. Chloride 99 98 - 107 mmol/L [facility] CO2 29 22 - 31 mmol/L [facility] Anion Gap 12 5 - 15 mmol/L [facility] Calcium 10.0 8.5 - 10.5 mg/dL [facility] Estimated GFR 44(L) >=60 mL/min/1. 73 m?? [facility] Comment: This patient's estimated GFR was [...] Narrative Resulting Agency Comment Spec In Lab Terrence Keating MD CHEMISTRY ORDERABLES [facility] [place] [address] * Differential, Automated (07/09/2023 3:03 AM EDT) Neutrophils % 51.4 % [facility] Neutr Abs (ANC) 3.43 1.70 - 6.10 x10(3)/[facility] Lymphocytes % 31.4 % [facility] Lymphocytes Abs 2.1 0.9 - 3.2 x10(3)/[facility] Monocytes % 10.1 % [facility] Monocyte Abs 0.7 0.3 - 0.9 x10(3)/[facility] Eosinophils % 6.0 % [facility] Eosinophils Abs 0.4 0.0 - 0.4 x10(3)/[facility] Basophils % 0.8 % [facility] Basophils Abs 0.0 0.0 - 0.1 x10(3)/[facility] Immature Gran % 0.30 % [facility] Comment: Immature granulocytes(IG's)percentage and absolute count will include metamyelocytes, myelocytes, and promyelocytes. Blood smears from CBCs yielding IG's will be scanned manually for concordance. If this scan disagrees with the automated IG or if promyelocytes are noted, a manual differential will be performed. Shonda Gran Abs 0.02 0.00 - 0.04 x10(3)/[facility] Blood 07/09/2023 3:03 AM EDT 07/09/2023 3:14 AM EDT Narrative Resulting Agency Comment Spec In Lab Terrence Keating MD HEMATOLOGY ORDERABLE S [facility] [place] [address] * (ABNORMAL) Hemogram (07/09/2023 3:03 AM EDT) WBC 6.7 4.0 - 9.5 x10(3)/[facility] RBC 3.87(L) 4.00 - 5.21 x10(6)/[facility] Hemoglobin 12.4 11.7 - 15.5 g/dL [facility] Hematocrit 36.8 35.7 - 45.8 % [facility] MCV 95.1(H) 82.6 - 94.4 fL [facility] MCH 32.0 27.1 - 32.0 pg [facility] MCHC 33.7 31.7 - 35.0 g/dL [facility] Platelets 209 145 - 357 x10(3)/[facility] RDWSD 47.9(H) 37.0 - 46.0 fL [facility] RDWCV 13.7 11.5 - 14.1 % [facility] MPV 10.5 7.6 - 12.9 [facility] nRBC % Auto 0.0 % [facility] nRBC Abs Auto 0.000 0.000 - 0.000 x10(3)/[facility] Blood 07/09/2023 3:03 AM EDT 07/09/2023 3:14 AM EDT Narrative Resulting Agency Comment Spec In Lab Terrence Keating MD HEMATOLOGY ORDERABLE S [facility] [place] [address] * Heparin (unfractionated) Level (07/09/2023 3:03 AM EDT) Heparin UFH Level 0.52 IU/mL [facility] Comment: Heparin (anti-Xa) levels should be [...] cardiac surgery): 0.1 ? 0.3 IU/mL Blood 07/09/2023 3:03 AM EDT 07/09/2023 3:14 AM EDT Narrative Resulting Agency Comment Spec In Lab Ailyn Irvin MD HEMATOLOGY ORDERABLE S [facility] [place] [address] * (ABNORMAL) Basic Metabolic Panel (non-fasting) (07/09/2023 3:03 AM EDT) Glucose Lvl 100 65 - 199 mg/dL [facility] Comment:Diabetes: >=200 mg/d L plus symptoms BUN 12 8 - 18 mg/dL [facility] Creatinine 1.24(H) 0.70 - 1.20 mg/dL [facility] Sodium 138 135 - 145 mmol/L [facility] Potassium 4.2 3.5 - 5.0 mmol/L [facility] Comment: Please note: ??Patients with WBC >100,000 may have falsely elevated Potassium levels. ??For accurate Potassium quantification in these patients send serum separator tube (gold top) for subsequent determinations. ??Contact the Clinical Chemistry Laboratory if there are any questions. Chloride 104 98 - 107 mmol/L [facility] CO2 22 22 - 31 mmol/L [facility] Anion Gap 12 5 - 15 mmol/L [facility] Calcium 9.3 8.5 - 10.5 mg/dL [facility] Estimated GFR 52(L) >=60 mL/min/1. 73 m?? [facility] Comment: This patient's estimated GFR was [...] and symptoms in addition to eGFR. Blood 07/09/2023 3:03 AM EDT 07/09/2023 3:14 AM EDT Narrative Resulting Agency Comment Spec In Lab Eufemia Copeland MD CHEMISTRY ORDERABL ES Performing Organization Address City/[facility]/ZIP Co de Phone Number [facility] [place] [address] * Phosphorus (07/09/2023 3:03 AM EDT) Phosphorus 4.5 2.5 - 4.5 mg/dL [facility] Blood 07/09/2023 3:03 AM EDT 07/09/2023 3:14 AM EDT Narrative Resulting Agency Comment Spec In Lab Eufemia Copeland MD CHEMISTRY ORDERABL ES Performing Organization Address [facility] Co de Phone Number [facility] [place] [address] * Magnesium (07/09/2023 3:03 AM EDT) Magnesium 0.91 0.69 - 1.07 mmol/L [facility] Blood 07/09/2023 3:03 AM EDT 07/09/2023 3:14 AM EDT Narrative Resulting Agency Comment Spec In Lab Eufemia Copeland MD CHEMISTRY ORDERABL ES Performing Organization Address [facility] Co de Phone Number [facility] [place] [address] * Heparin (unfractionated) Level (07/08/2023 12:02 PM EDT) Heparin UFH Level 0.45 IU/mL [facility] Comment: Heparin (anti-Xa) levels should be [...] cardiac surgery): 0.1 ? 0.3 IU/mL Blood 07/08/2023 12:0 2 PM EDT 07/08/2023 12:42 PM EDT Narrative Resulting Agency Comment Spec In Lab Terrence Keating MD HEMATOLOGY ORDERABLE S Performing Organization Address City/[facility]/ZIP Co de Phone Number [facility] [place] [phone] * EKG 12 Lead (07/08/2023 9:58 AM EDT) Ventricular rate 66 BPM MUSE SYSTEM Atrial Rate 66 BPM MUSE SYSTEM P-R Interval 178 ms MUSE SYSTEM QRS Duration 92 ms MUSE SYSTEM Q-T Interval 486 ms MUSE SYSTEM QTC Calculated (Bezet) 509 ms MUSE SYSTEM Calculated P [place] 29 degrees MUSE SYSTEM Calculated R [place] 33 degrees MUSE SYSTEM Calculated T [place] 29 degrees MUSE SYSTEM INTERPRETATION Normal sinus rhythm Nonspecific ST and T wave abnormality Prolonged QT Abnormal ECG When compared with ECG of 04-JUL-2023 11:41, Criteria for Septal infarct are no longer Present I personally reviewed the tracing and edited the fellows interpretation Confirmed by fellow MD Keyshawn, Katalina ([id number]) on 07/08/2023 3:18:07 PM Confirmed by MD Henderson Katharine ([id number]) on 07/09/2023 6:15:21 AM MUSE SYSTEM 07/08/2023 9:58 AM EDT 07/09/2023 6:15 AM EDT Lisa Beck MD ECG ORDERABLES Performing Organization Address City/[facility]/ZIP Co de Phone Number MUSE SYSTEM * Differential, Automated (07/08/2023 5:52 AM EDT) Neutrophils % 60.6 % [facility] Neutr Abs (ANC) 4.42 1.70 - 6.10 x10(3)/[facility] Lymphocytes % 24.8 % [facility] Lymphocytes Abs 1.8 0.9 - 3.2 x10(3)/[facility] Monocytes % 9.2 % [facility] Monocyte Abs 0.7 0.3 - 0.9 x10(3)/[facility] Eosinophils % 4.5 % [facility] Eosinophils Abs 0.3 0.0 - 0.4 x10(3)/[facility] Basophils % 0.5 % [facility] Basophils Abs 0.0 0.0 - 0.1 x10(3)/[facility] Immature Gran % 0.40 % [facility] Comment: Immature granulocytes(IG's)percentage and absolute count will include metamyelocytes, myelocytes, and promyelocytes. Blood smears from CBCs yielding IG's will be scanned manually for concordance. If this scan disagrees with the automated IG or if promyelocytes are noted, a manual differential will be performed. Shonda Gran Abs 0.03 0.00 - 0.04 x10(3)/[facility] Blood 07/08/2023 5:52 AM EDT 07/08/2023 5:58 AM EDT Narrative Resulting Agency Comment Spec In Lab Terrence Keating MD HEMATOLOGY ORDERABLE S [facility] [place] [address] * (ABNORMAL) Hemogram (07/08/2023 5:52 AM EDT) WBC 7.3 4.0 - 9.5 x10(3)/[facility] RBC 3.94(L) 4.00 - 5.21 x10(6)/[facility] Hemoglobin 12.3 11.7 - 15.5 g/dL [facility] Hematocrit 36.3 35.7 - 45.8 % [facility] MCV 92.1 82.6 - 94.4 fL [facility] MCH 31.2 27.1 - 32.0 pg [facility] MCHC 33.9 31.7 - 35.0 g/dL [facility] Platelets 207 145 - 357 x10(3)/[facility] RDWSD 44.6 37.0 - 46.0 fL [facility] RDWCV 13.3 11.5 - 14.1 % [facility] MPV 10.5 7.6 - 12.9 [facility] nRBC % Auto 0.0 % [facility] nRBC Abs Auto 0.000 0.000 - 0.000 x10(3)/[facility] Blood 07/08/2023 5:52 AM EDT 07/08/2023 5:58 AM EDT Narrative Resulting Agency Comment Spec In Lab Terrence Keating MD HEMATOLOGY ORDERABLE S [facility] [place] [address] * Heparin (unfractionated) Level (07/08/2023 5:52 AM EDT) Heparin UFH Level 0.37 IU/mL [facility] Comment: Heparin (anti-Xa) levels should be [...] cardiac surgery): 0.1 ? 0.3 IU/mL Blood 07/08/2023 5:52 AM EDT 07/08/2023 5:58 AM EDT Narrative Resulting Agency Comment Spec In Lab Ailyn Irvin MD HEMATOLOGY ORDERABLE S [facility] [place] [address] * (ABNORMAL) Basic Metabolic Panel (non-fasting) (07/08/2023 5:52 AM EDT) Glucose Lvl 102 65 - 199 mg/dL [facility] Comment:Diabetes: >=200 mg/d L plus symptoms BUN 14 8 - 18 mg/dL [facility] Creatinine 1.30(H) 0.70 - 1.20 mg/dL [facility] Sodium 139 135 - 145 mmol/L [facility] Potassium 3.2(L) 3.5 - 5.0 mmol/L [facility] Comment: Please note: ??Patients with WBC >100,000 may have falsely elevated Potassium levels. ??For accurate Potassium quantification in these patients send serum separator tube (gold top) for subsequent determinations. ??Contact the Clinical Chemistry Laboratory if there are any questions. Chloride 101 98 - 107 mmol/L [facility] CO2 25 22 - 31 mmol/L [facility] Anion Gap 13 5 - 15 mmol/L [facility] Calcium 9.3 8.5 - 10.5 mg/dL [facility] Estimated GFR 49(L) >=60 mL/min/1. 73 m?? [facility] Comment: This patient's estimated GFR was [...] and symptoms in addition to eGFR. Blood 07/08/2023 5:52 AM EDT 07/08/2023 5:58 AM EDT Narrative Resulting Agency Comment Spec In Lab Eufemia Copeland MD CHEMISTRY ORDERABL ES Performing Organization Address [facility] Co de Phone Number [facility] [place] [address] * Phosphorus (07/08/2023 5:52 AM EDT) Phosphorus 4.3 2.5 - 4.5 mg/dL [facility] Blood 07/08/2023 5:52 AM EDT 07/08/2023 5:58 AM EDT Narrative Resulting Agency Comment Spec In Lab Eufemia Copeland MD CHEMISTRY ORDERABL ES Performing Organization Address [facility] Co de Phone Number [facility] [place] [address] * Magnesium (07/08/2023 5:52 AM EDT) Magnesium 0.89 0.69 - 1.07 mmol/L [facility] Blood 07/08/2023 5:52 AM EDT 07/08/2023 5:58 AM EDT Narrative Resulting Agency Comment Spec In Lab Eufemia Copeland MD CHEMISTRY ORDERABL ES Performing Organization Address [facility] Co de Phone Number [facility] [place] [address] * Heparin (unfractionated) Level (07/08/2023 12:00 AM EDT) Heparin UFH Level 0.22 IU/mL [facility] Comment: Heparin (anti-Xa) levels should be [...] cardiac surgery): 0.1 ? 0.3 IU/mL Blood 07/08/2023 07/08/2023 12: 06 AM EDT Narrative Resulting Agency Comment Spec In Lab Ailyn Irvin MD HEMATOLOGY ORDERABLE S Performing Organization Address [facility] de Phone Number [facility] [place] [address] * Specimen to Pathology (07/07/2023 2:55 PM EDT) AP Specimen 07/07/2023 2:55 PM EDT 07/07/2023 2:55 PM EDT Narrative [facility] - 07/07/2023 2:55 PM EDT Specimen requisition ordered. ??Separate Pathology report to follow Terrence Keating MD PATHOLOGY/CYTOLOGY O RUMA Performing Organization Address [facility] Co de Phone Number [facility] [place] [address] * Specimen to Pathology (07/07/2023 2:38 PM EDT) AP Specimen 07/07/2023 2:38 PM EDT 07/07/2023 2:38 PM EDT Narrative [facility] - 07/07/2023 2:38 PM EDT Specimen requisition ordered. ??Separate Pathology report to follow Terrence Keating MD PATHOLOGY/CYTOLOGY O RUMA Performing Organization Address [facility]/State/ZIP Co de Phone Number [facility] [place] [address] * Specimen to Pathology (07/07/2023 2:38 PM EDT) AP Specimen 07/07/2023 2:38 PM EDT 07/07/2023 2:38 PM EDT Narrative [facility] - 07/07/2023 2:38 PM EDT Specimen requisition ordered. ??Separate Pathology report to follow Terrence Keating MD PATHOLOGY/CYTOLOGY O RDERAFADUMO [facility] [place] [address] * Surgical Pathology Report (07/07/2023 2:25 PM EDT) Surgical Pathology Report [id number] ? Location: [facility]; [facility]; A The signing pathologist has (i) examined [...] Sapna Verified: ??07/19/2023 13:25 ??Pathologist Performed at: ??-[facility] Dept. of Pathology, [place] [address] Audit Clerk: Vangie Lu MD, FCAP, ??CLIA Certificate: [id number] SPECIMEN(S) SUBMITTED A - duodenal biopsies rule [...] toto ??in 2 cassettes labeled C1-C2. ??sdy [facility] 07/07/2023 2:25 PM EDT Lashonda Villa MD PATHOLOGY/CYTOLOGY O ALVAERAFADUMO [facility] [place] [address] * COLONOSCOPY (07/07/2023 1:39 PM EDT) COLONOSCOPY [facility] Endoscopy Procedure Date: 07/07/2023 1:39 PM ? Patient Name: Loida Roque ? Date of : 1970 ? Age: 53 ? Order #: [id number] ? Instrument Name: [id number]- [id number] ? Procedure: ? Colonoscopy Indications: ? Abdominal pain, Diarrhea Providers: ? Lashonda Villa MD, [place] ? Mercedes [place] Agan Referring MD: [...] ? was evaluated using the BBPS ? ([place] Bowel Preparation Scale) ? with scores of: [...] results. ? - Return patient to [facility] ? for ongoing care. ? - Resume heparin at prior dose ? today. Refer to managing physician ? for further adjustment of therapy. ? Procedure Code(s): ? --- Professional --- ? 91179, Colonoscopy, flexible; with ? biopsy, single or multiple CPT copyright 2021 [employer]. All rights reserved. The codes documented in this report are preliminary and upon compliance reviewer review may be revised to meet current [...] Unknown GENERAL SURGICAL ORD ERABLES [employer]ATION * Shiga Toxin Detection (07/07/2023 12:10 PM EDT) Shiga Toxin Assay EIA Negative for Shiga Toxin 1 EIA Negative for Shiga Toxin 2 [facility] Stool 07/07/2023 12:1 0 PM EDT 07/07/2023 12:53 PM EDT Narrative Resulting Agency Comment Spec In Lab Ailyn Irvin MD MICROBIOLOGY - GENER AL ORDERABLES Performing Organization Address [facility] de Phone Number [facility] [place] [address] * Campylobacter Antigen (07/07/2023 12:10 PM EDT) Campylobacter Ag Immunoassay Negative for Campylobacter Antigen [facility] Stool 07/07/2023 12:1 0 PM EDT 07/07/2023 12:53 PM EDT Narrative Resulting Agency Comment Spec In Lab Ailyn Irvin MD MICROBIOLOGY - GENER AL ORDERABLES Performing Organization Address [facility] Co de Phone Number [facility] [place] [address] * Stool culture (07/07/2023 12:10 PM EDT) Stool Culture No enteric pathogens isolated [facility] Stool 07/07/2023 12:1 0 PM EDT 07/07/2023 12:53 PM EDT Narrative Resulting Agency Comment Spec In Lab Ailyn Irvin MD MICROBIOLOGY - GENER AL ORDERABLES Performing Organization Address [facility] Co de Phone Number [facility] [place] [address] * (ABNORMAL) Differential, Automated (07/07/2023 3:51 AM EDT) Neutrophils % 58.9 % [facility] Neutr Abs (ANC) 4.67 1.70 - 6.10 x10(3)/[facility] Lymphocytes % 24.8 % [facility] Lymphocytes Abs 2.0 0.9 - 3.2 x10(3)/[facility] Monocytes % 9.4 % [facility] Monocyte Abs 0.7 0.3 - 0.9 x10(3)/[facility] Eosinophils % 6.1 % [facility] Eosinophils Abs 0.5(H) 0.0 - 0.4 x10(3)/[facility] Basophils % 0.5 % [facility] Basophils Abs 0.0 0.0 - 0.1 x10(3)/[facility] Immature Gran % 0.30 % [facility] Comment: Immature granulocytes(IG's)percentage and absolute count will include metamyelocytes, myelocytes, and promyelocytes. Blood smears from CBCs yielding IG's will be scanned manually for concordance. If this scan disagrees with the automated IG or if promyelocytes are noted, a manual differential will be performed. Shonda Gran Abs 0.02 0.00 - 0.04 x10(3)/[facility] Blood 07/07/2023 3:51 AM EDT 07/07/2023 4:08 AM EDT Narrative Resulting Agency Comment Spec In Lab Terrence Keating MD HEMATOLOGY ORDERABLE S [facility] [place] [address] * Hemogram (07/07/2023 3:51 AM EDT) WBC 7.9 4.0 - 9.5 x10(3)/[facility] RBC 4.42 4.00 - 5.21 x10(6)/[facility] Hemoglobin 13.8 11.7 - 15.5 g/dL [facility] Hematocrit 41.0 35.7 - 45.8 % [facility] MCV 92.8 82.6 - 94.4 [facility]ORY MCH 31.2 27.1 - 32.0 pg [facility] MCHC 33.7 31.7 - 35.0 g/dL [facility] Platelets 255 145 - 357 x10(3)/[facility] RDWSD 44.8 37.0 - 46.0 [facility] RDWCV 13.2 11.5 - 14.1 % [facility] MPV 10.6 7.6 - 12.9 [facility] nRBC % Auto 0.0 % [facility] nRBC Abs Auto 0.000 0.000 - 0.000 x10(3)/[facility] Blood 07/07/2023 3:51 AM EDT 07/07/2023 4:08 AM EDT Narrative Resulting Agency Comment Spec In Lab Terrence Keating MD HEMATOLOGY ORDERABLE S [facility] [place] [address] * Heparin (unfractionated) Level (07/07/2023 3:51 AM EDT) Heparin UFH Level 0.33 IU/mL [facility] Comment: Heparin (anti-Xa) levels should be [...] cardiac surgery): 0.1 ? 0.3 IU/mL Blood 07/07/2023 3:51 AM EDT 07/07/2023 4:08 AM EDT Narrative Resulting Agency Comment Spec In Lab Terrence Keating MD HEMATOLOGY ORDERABLE S [facility] [place] [address] * (ABNORMAL) Basic Metabolic Panel (non-fasting) (07/07/2023 3:51 AM EDT) Glucose Lvl 101 65 - 199 mg/dL [facility] Comment:Diabetes: >=200 mg/d L plus symptoms BUN 18 8 - 18 mg/dL [facility] Creatinine 1.30(H) 0.70 - 1.20 mg/dL [facility] Sodium 135 135 - 145 mmol/L [facility] Potassium 3.5 3.5 - 5.0 mmol/L [facility] Comment: Please note: ??Patients with WBC >100,000 may have falsely elevated Potassium levels. ??For accurate Potassium quantification in these patients send serum separator tube (gold top) for subsequent determinations. ??Contact the Clinical Chemistry Laboratory if there are any questions. Chloride 96(L) 98 - 107 mmol/L [facility] CO2 23 22 - 31 mmol/L [facility] Anion Gap 16(H) 5 - 15 mmol/L [facility] Calcium 9.4 8.5 - 10.5 mg/dL [facility] Estimated GFR 49(L) >=60 mL/min/1. 73 m?? [facility] Comment: This patient's estimated GFR was [...] and symptoms in addition to eGFR. Blood 07/07/2023 3:51 AM EDT 07/07/2023 4:08 AM EDT Narrative Resulting Agency Comment Spec In Lab Eufemia Copeland MD CHEMISTRY ORDERABL ES Performing Organization Address City/[facility]/ZIP Co de Phone Number [facility] [place] [address] * Phosphorus (07/07/2023 3:51 AM EDT) Phosphorus 4.0 2.5 - 4.5 mg/dL [facility] Blood 07/07/2023 3:51 AM EDT 07/07/2023 4:08 AM EDT Narrative Resulting Agency Comment Spec In Lab Eufemia Copeland MD CHEMISTRY ORDERABL ES Performing Organization Address [facility] Co de Phone Number [facility] [place] [address] * Magnesium (07/07/2023 3:51 AM EDT) Magnesium 0.87 0.69 - 1.07 mmol/L [facility] Blood 07/07/2023 3:51 AM EDT 07/07/2023 4:08 AM EDT Narrative Resulting Agency Comment Spec In Lab Eufemia Copeland MD CHEMISTRY ORDERABL ES Performing Organization Address [facility] Co de Phone Number [facility] [place] [address] * Hepatic Function Panel (07/07/2023 3:51 AM EDT) Total Protein 7.5 6.1 - 8.0 g/dL [facility] Albumin 4.4 3.2 - 5.2 g/dL [facility] AST 15 0 - 30 unit/L [facility] ALT 20 0 - 30 unit/L [facility] Alk Phos 54 35 - 105 unit/L [facility] Total Bilirubin 0.4 0.2 - 1.3 mg/dL [facility] Bili, Direct 0.1 0.0 - 0.3 mg/dL [facility] Blood 07/07/2023 3:51 AM EDT 07/07/2023 4:08 AM EDT Narrative Resulting Agency Comment Spec In Lab Ailyn Irvin MD CHEMISTRY ORDERABLES Performing Organization Address [facility] Co de Phone Number [facility] [place] [address] * Giardia/Cryptosporidium Antigens ([facility]/CGP/APD/NLH) (07/07/2023 12:38 AM EDT) Giardia Screen Negative Negative [facility] Comment:Examination for othe r intestinal parasites requires foreign travel history. Cryptosporidium Screen Negative Negative [facility] Stool 07/07/2023 12:3 8 AM EDT 07/07/2023 7:56 AM EDT Narrative Resulting Agency Comment Spec In Lab Ailyn Irvin MD MICROBIOLOGY - GENER AL ORDERABLES Performing Organization Address City/[facility]/ZIP Co de Phone Number [facility] [place] [address] * Hepatic Function Panel (07/06/2023 3:41 PM EDT) Total Protein 7.6 6.1 - 8.0 g/dL [facility] Albumin 4.3 3.2 - 5.2 g/dL [facility] AST 20 0 - 30 unit/L [facility] ALT 22 0 - 30 unit/L [facility] Alk Phos 58 35 - 105 unit/L [facility] Total Bilirubin 0.4 0.2 - 1.3 mg/dL [facility] Bili, Direct 0.1 0.0 - 0.3 mg/dL [facility] Blood 07/06/2023 3:41 PM EDT 07/06/2023 4:00 PM EDT Narrative Resulting Agency Comment Spec In Lab Terrence Keating MD CHEMISTRY ORDERABLES Performing Organization Address City/[facility] Co de Phone Number [facility] [place] [address] * Hepatic Function Panel (07/06/2023 3:54 AM EDT) Total Protein 7.6 6.1 - 8.0 g/dL [facility] Albumin 4.3 3.2 - 5.2 g/dL [facility] AST Not Perf 0 - 30 [facility] Comment: Unable to quantitate due to sample hemolysis. ??Sample redraw suggested. Called by: abimbola, Read back by: Ana Paula Borja, Date/Time:07/06/23 14:08. ALT 25 0 - 30 unit/L [facility] Alk Phos 58 35 - 105 unit/L [facility] Total Bilirubin 0.4 0.2 - 1.3 mg/dL [facility] Bili, Direct Not Perf 0.0 - 0.3 [facility] Blood Venous Draw / Unknown 07/06/2023 3:54 AM EDT 07/06/2023 4:18 AM EDT Narrative Resulting Agency Comment Spec In Lab Terrence Keating MD CHEMISTRY ORDERABLES Performing Organization Address City/[facility]/ZIP Co de Phone Number [facility] [place] [address] * (ABNORMAL) Differential, Automated (07/06/2023 3:54 AM EDT) Neutrophils % 56.6 % [facility] Neutr Abs (ANC) 4.34 1.70 - 6.10 x10(3)/[facility] Lymphocytes % 26.1 % [facility] Lymphocytes Abs 2.0 0.9 - 3.2 x10(3)/[facility] LAB[facility] Monocytes % 9.6 % [facility] Monocyte Abs 0.7 0.3 - 0.9 x10(3)/[facility] Eosinophils % 6.6 % [facility] Eosinophils Abs 0.5(H) 0.0 - 0.4 x10(3)/[facility] Basophils % 0.7 % [facility] Basophils Abs 0.0 0.0 - 0.1 x10(3)/[facility] LABOR[facility] Immature Gran % 0.40 % [facility] Comment: Immature granulocytes(IG's)percentage and absolute count will include metamyelocytes, myelocytes, and promyelocytes. Blood smears from CBCs yielding IG's will be scanned manually for concordance. If this scan disagrees with the automated IG or if promyelocytes are noted, a manual differential will be performed. Shonda Gran Abs 0.03 0.00 - 0.04 x10(3)/[facility] LAB[facility] Blood 07/06/2023 3:54 AM EDT 07/06/2023 4:12 AM EDT Narrative Resulting Agency Comment Spec In Lab Terrence Keating MD HEMATOLOGY ORDERABLE S [facility] [place] [address] * (ABNORMAL) Hemogram (07/06/2023 3:54 AM EDT) WBC 7.7 4.0 - 9.5 x10(3)/[facility] LAB[facility] RBC 4.62 4.00 - 5.21 x10(6)/[facility] Hemoglobin 14.7 11.7 - 15.5 g/dL [facility] Hematocrit 43.8 35.7 - 45.8 % [facility] MCV 94.8(H) 82.6 - 94.4 [facility] LABORATORY MCH 31.8 27.1 - 32.0 pg [facility] MCHC 33.6 31.7 - 35.0 g/dL [facility] Platelets 243 145 - 357 x10(3)/[facility] RDWSD 47.2(H) 37.0 - 46.0 [facility] LAB[facility]ORY RDWCV 13.5 11.5 - 14.1 % [facility] MPV 10.4 7.6 - 12.9 [facility] LAB[facility] nRBC % Auto 0.0 % [facility] nRBC Abs Auto 0.000 0.000 - 0.000 x10(3)/[facility] Blood 07/06/2023 3:54 AM EDT 07/06/2023 4:12 AM EDT Narrative Resulting Agency Comment Spec In Lab Terrence Keating MD HEMATOLOGY ORDERABLE S [facility] [place] [address] * (ABNORMAL) Basic Metabolic Panel (non-fasting) (07/06/2023 3:54 AM EDT) Glucose Lvl 107 65 - 199 mg/dL [facility] Comment:Diabetes: >=200 mg/d L plus symptoms BUN 16 8 - 18 mg/dL [facility] Creatinine 1.25(H) 0.70 - 1.20 mg/dL [facility] Sodium 135 135 - 145 mmol/L [facility] Potassium 3.9 3.5 - 5.0 mmol/L [facility] Comment: Please note: ??Patients with WBC >100,000 may have falsely elevated Potassium levels. ??For accurate Potassium quantification in these patients send serum separator tube (gold top) for subsequent determinations. ??Contact the Clinical Chemistry Laboratory if there are any questions. Chloride 98 98 - 107 mmol/L [facility] CO2 23 22 - 31 mmol/L [facility] Anion Gap 14 5 - 15 mmol/L [facility] Calcium 10.0 8.5 - 10.5 mg/dL [facility] Estimated GFR 51(L) >=60 mL/min/1. 73 m?? [facility] Comment: This patient's estimated GFR was [...] and symptoms in addition to eGFR. Blood 07/06/2023 3:54 AM EDT 07/06/2023 4:18 AM EDT Narrative Resulting Agency Comment Spec In Lab Eufemia Copeland MD CHEMISTRY ORDERABL ES Performing Organization Address [facility]/ZIP Co de Phone Number [facility] [place] [address] * Phosphorus (07/06/2023 3:54 AM EDT) Phosphorus 4.5 2.5 - 4.5 mg/dL [facility] Blood 07/06/2023 3:54 AM EDT 07/06/2023 4:18 AM EDT Narrative Resulting Agency Comment Spec In Lab Eufemia Copeland MD CHEMISTRY ORDERABL ES Performing Organization Address City/[facility]/ZIP Co de Phone Number [facility] [place] [address] * Magnesium (07/06/2023 3:54 AM EDT) Magnesium 0.97 0.69 - 1.07 mmol/L [facility] Blood 07/06/2023 3:54 AM EDT 07/06/2023 4:18 AM EDT Narrative Resulting Agency Comment Spec In Lab Eufemia Copeland MD CHEMISTRY ORDERABL ES Performing Organization Address [facility]/ZIP Co de Phone Number [facility] [place] [address] * Heparin (unfractionated) Level (07/06/2023 3:54 AM EDT) Pathologist [facility] Heparin UFH Level 0.31 IU/mL [facility] Comment: Heparin (anti-Xa) levels should be [...] cardiac surgery): 0.1 ? 0.3 IU/mL Blood 07/06/2023 3:54 AM EDT 07/06/2023 4:50 AM EDT Narrative Resulting Agency Comment Spec In Lab Ailyn Irvin MD HEMATOLOGY ORDERABLE S [facility] [place] [address] * Amylase (07/05/2023 5:44 PM EDT) Amylase 35 28 - 100 unit/L [facility] Blood 07/05/2023 5:44 PM EDT 07/05/2023 6:00 PM EDT Narrative Resulting Agency Comment Spec In Lab Terrence Keating MD CHEMISTRY ORDERABLES Performing Organization Address [facility] Co de Phone Number [facility] [place] [address] * Lipase (07/05/2023 5:44 PM EDT) Lipase 17 0 - 60 unit/L [facility] Blood 07/05/2023 5:44 PM EDT 07/05/2023 6:00 PM EDT Narrative Resulting Agency Comment Spec In Lab Terrence Keating MD CHEMISTRY ORDERABLES Performing Organization Address [facility] de Phone Number [facility] [place] [address] * (ABNORMAL) Basic Metabolic Panel (non-fasting) (07/05/2023 5:44 PM EDT) Glucose Lvl 130 65 - 199 mg/dL [facility] Comment:Diabetes: >=200 mg/d L plus symptoms BUN 17 8 - 18 mg/dL [facility] Creatinine 1.30(H) 0.70 - 1.20 mg/dL [facility] Sodium 134(L) 135 - 145 mmol/L [facility] Potassium 3.7 3.5 - 5.0 mmol/L [facility] Comment: Please note: ??Patients with WBC >100,000 may have falsely elevated Potassium levels. ??For accurate Potassium quantification in these patients send serum separator tube (gold top) for subsequent determinations. ??Contact the Clinical Chemistry Laboratory if there are any questions. Chloride 98 98 - 107 mmol/L [facility] CO2 21(L) 22 - 31 mmol/L [facility] Anion Gap 15 5 - 15 mmol/L [facility] Calcium 9.6 8.5 - 10.5 mg/dL [facility] Estimated GFR 49(L) >=60 mL/min/1. 73 m?? [facility] Comment: This patient's estimated GFR was [...] and symptoms in addition to eGFR. Blood 07/05/2023 5:44 PM EDT 07/05/2023 6:00 PM EDT Narrative Resulting Agency Comment Spec In Lab Terrence Keating MD CHEMISTRY ORDERABLES Performing Organization Address City/State/[facility] Co mn Phone Number [facility] [place] [address] * Duplex Study Visceral Arteries, Comp (07/05/2023 9:46 AM EDT) VB Text Report Department: Vascular Surgery Lab Patient: [id number] (LIODA ROQUE) CPT: [id number] Referring Physician: TERRENCE KEATING ?? Phone: Indications: S/p SMA stent (07/01) with abdominal pain ? patency Findings: Unilateral ? Waveform ? PSV cm/s ??EDV cm/s ?? Dary Renal Aorta ?60 ?14 ?? Celiac Artery, Proximal ??Bi-Triphasic ?116 ?18 ?? Celiac Artery, Mid ? Bi-Triphasic ?108 ?19 ?? Celiac Artery, Distal ?Bi-Triphasic ? 91 ?20 ?? Sup Mes Artery Proximal ??Bi-Triphasic ?166 ?26 ?? Sup Mes Artery Middle ?Bi-Triphasic ?289 ?27 ?? Sup Mes Artery Distal ?Bi-Triphasic ?101 ?11 ?? Hepatic Artery ? [place]-Biphasic ? 123 ?23 ?? Splenic Artery ? [place]-Biphasic ? 122 ?24 ?? Inf Mes Artery ? Bi-Triphasic ?180 ? 8 ?? Interpretation: Limited visualization due to bowel gas/body habitus. Patent stented superior mesenteric artery with no evidence of hemodynamically significant stenosis. The origin of the SMA was not well visualized and therefore unable to entirely exclude stenosis in this segment. Patent celiac, common hepatic, splenic and inferior mesenteric arteries with no evidence of significant stenosis. Comparison: Significant improvement of the SMA velocities s/p stent when compared to previous exam on 06/28/2023. Previous Celiac/Mesenteric Studies: Date ? SMA PSV ?? EDV ?? Celiac PSV ?? EDV ? 427 ? 91 ?119 ? 26 Current Exam ?? 289 ? 27 ?116 ? 20 Electronically Signed by: BRIANNA MCDOWELL on 2023-07-07 08:43:53 PM [facility] VB Text Report End of Report [facility] 07/05/2023 9:46 AM EDT Terrence Keating MD VASCULAR ORDERABLES [facility] * Differential, Automated (07/05/2023 5:05 AM EDT) Neutrophils % 63.0 % [facility] Neutr Abs (ANC) 5.59 1.70 - 6.10 x10(3)/[facility] LAB[facility] Lymphocytes % 22.4 % [facility] Lymphocytes Abs 2.0 0.9 - 3.2 x10(3)/[facility] Monocytes % 9.7 % [facility] Monocyte Abs 0.9 0.3 - 0.9 x10(3)/[facility] Eosinophils % 4.1 % [facility] Eosinophils Abs 0.4 0.0 - 0.4 x10(3)/[facility] Basophils % 0.6 % [facility] Basophils Abs 0.0 0.0 - 0.1 x10(3)/[facility] Immature Gran % 0.20 % [facility] Comment: Immature granulocytes(IG's)percentage and absolute count will include metamyelocytes, myelocytes, and promyelocytes. Blood smears from CBCs yielding IG's will be scanned manually for concordance. If this scan disagrees with the automated IG or if promyelocytes are noted, a manual differential will be performed. Shonda Gran Abs 0.02 0.00 - 0.04 x10(3)/[facility] Blood 07/05/2023 5:05 AM EDT 07/05/2023 5:17 AM EDT Narrative Resulting Agency Comment Spec In Lab Terrence Keatign MD HEMATOLOGY ORDERABLE S [facility] [place] [id number] * (ABNORMAL) Hemogram (07/05/2023 5:05 AM EDT) WBC 8.9 4.0 - 9.5 x10(3)/[facility] LABORATORY RBC 4.42 4.00 - 5.21 x10(6)/[facility] LABORATORY Hemoglobin 13.7 11.7 - 15.5 g/dL [facility] Hematocrit 41.4 35.7 - 45.8 % [facility] MCV 93.7 82.6 - 94.4 fL [facility] MCH 31.0 27.1 - 32.0 pg [facility] MCHC 33.1 31.7 - 35.0 g/dL [facility] Platelets 245 145 - 357 x10(3)/[facility] LABORATORY RDWSD 47.1(H) 37.0 - 46.0 fL [facility] RDWCV 13.7 11.5 - 14.1 % [facility] MPV 10.8 7.6 - 12.9 [facility] LABORATORY nRBC % Auto 0.0 % [facility] LABORATORY nRBC Abs Auto 0.000 0.000 - 0.000 x10(3)/[facility] LABORATORY Blood 07/05/2023 5:05 AM EDT 07/05/2023 5:17 AM EDT Narrative Resulting Agency Comment Spec In Lab Terrence Keating MD HEMATOLOGY ORDERABLE S Performing Organization Address City/State/[facility] Co de Phone Number [facility] [place] [address] * Heparin (unfractionated) Level (07/05/2023 5:05 AM EDT) Heparin UFH Level 0.35 IU/mL [facility] Comment: Heparin (anti-Xa) levels should be [...] cardiac surgery): 0.1 ? 0.3 IU/mL Blood 07/05/2023 5:05 AM EDT 07/05/2023 5:17 AM EDT Narrative Resulting Agency Comment Spec In Lab Ailyn Irvin MD HEMATOLOGY ORDERABLE S [facility] [place] [address] * (ABNORMAL) Basic Metabolic Panel (non-fasting) (07/05/2023 5:05 AM EDT) Glucose Lvl 114 65 - 199 mg/dL [facility] Comment:Diabetes: >=200 mg/d L plus symptoms BUN 19(H) 8 - 18 mg/dL [facility] Creatinine 1.51(H) 0.70 - 1.20 mg/dL [facility] Sodium 134(L) 135 - 145 mmol/L [facility] Potassium 3.8 3.5 - 5.0 mmol/L [facility] Comment: Please note: ??Patients with WBC >100,000 may have falsely elevated Potassium levels. ??For accurate Potassium quantification in these patients send serum separator tube (gold top) for subsequent determinations. ??Contact the Clinical Chemistry Laboratory if there are any questions. Chloride 97(L) 98 - 107 mmol/L [facility] CO2 25 22 - 31 mmol/L [facility] Anion Gap 12 5 - 15 mmol/L [facility] Calcium 10.0 8.5 - 10.5 mg/dL [facility] Estimated GFR 41(L) >=60 mL/min/1. 73 m?? [facility] Comment: This patient's estimated GFR was [...] and symptoms in addition to eGFR. Blood 07/05/2023 5:05 AM EDT 07/05/2023 5:17 AM EDT Narrative Resulting Agency Comment Spec In Lab Eufemia Copeland MD CHEMISTRY ORDERABL ES Performing Organization Address [facility]/ZIP Co de Phone Number [facility] [place] [address] * (ABNORMAL) Phosphorus (07/05/2023 5:05 AM EDT) Phosphorus 5.0(H) 2.5 - 4.5 mg/dL [facility] Blood 07/05/2023 5:05 AM EDT 07/05/2023 5:17 AM EDT Narrative Resulting Agency Comment Spec In Lab Eufemia Copeland MD CHEMISTRY ORDERABL ES Performing Organization Address [facility] Co de Phone Number [facility] [place] [address] * Magnesium (07/05/2023 5:05 AM EDT) Magnesium 1.01 0.69 - 1.07 mmol/L [facility] Blood 07/05/2023 5:05 AM EDT 07/05/2023 5:17 AM EDT Narrative Resulting Agency Comment Spec In Lab Eufemia Copeland MD CHEMISTRY ORDERABL ES Performing Organization Address [facility]/ZIP Co de Phone Number [facility] [place] [address] * EKG 12 Lead (07/04/2023 11:41 AM EDT) Ventricular rate 76 BPM MUSE SYSTEM Atrial Rate 76 BPM MUSE SYSTEM P-R Interval 174 ms MUSE SYSTEM QRS Duration 88 ms MUSE SYSTEM Q-T Interval 450 ms MUSE SYSTEM QTC Calculated (Bezet) 506 ms MUSE SYSTEM Calculated P [place] 36 degrees MUSE SYSTEM Calculated R [place] 35 degrees MUSE SYSTEM Calculated T [place] 37 degrees MUSE SYSTEM INTERPRETATION Normal sinus rhythm Possible Left atrial enlargement Septal infarct , age undetermined Prolonged QT Abnormal ECG When compared with ECG of 03-JUL-2023 21:36, ST no longer depressed in Anterior leads Nonspecific T wave abnormality now evident in Anterior leads Confirmed by MD Beatriz, Klarissa ([id number]) on 07/05/2023 6:21:29 AM MUSE SYSTEM 07/04/2023 11:4 1 AM EDT 07/05/2023 6:21 AM EDT Lisa Beck MD ECG ORDERABLES MUSE SYSTEM * Differential, Automated (07/04/2023 3:47 AM EDT) Pathologist [facility] Neutrophils % 63.5 % [facility] LAB[facility]AT[facility] Neutr Abs (ANC) 5.19 1.70 - 6.10 x10(3)/[facility] LABORATORY Lymphocytes % 24.4 % [facility] Lymphocytes Abs 2.0 0.9 - 3.2 x10(3)/[facility] LABORATORY Monocytes % 8.1 % [facility] Monocyte Abs 0.7 0.3 - 0.9 x10(3)/[facility] LABORATORY Eosinophils % 3.4 % [facility] Eosinophils Abs 0.3 0.0 - 0.4 x10(3)/[facility] LABORATORY Basophils % 0.4 % [facility] Basophils Abs 0.0 0.0 - 0.1 x10(3)/[facility] LABORATORY Immature Gran % 0.20 % [facility] Comment: Immature granulocytes(IG's)percentage and absolute count will include metamyelocytes, myelocytes, and promyelocytes. Blood smears from CBCs yielding IG's will be scanned manually for concordance. If this scan disagrees with the automated IG or if promyelocytes are noted, a manual differential will be performed. Shonda Gran Abs 0.02 0.00 - 0.04 x10(3)/[facility] LABORATORY Blood 07/04/2023 3:47 AM EDT 07/04/2023 4:15 AM EDT Narrative Resulting Agency Comment Spec In Lab Terrence Keating MD HEMATOLOGY ORDERABLE S [facility] [place] [address] * (ABNORMAL) Hemogram (07/04/2023 3:47 AM EDT) WBC 8.2 4.0 - 9.5 x10(3)/[facility] LABORATORY RBC 4.26 4.00 - 5.21 x10(6)/[facility] LABORATORY Hemoglobin 13.5 11.7 - 15.5 g/dL [facility] Hematocrit 40.0 35.7 - 45.8 % [facility] MCV 93.9 82.6 - 94.4 [facility] LABORATORY MCH 31.7 27.1 - 32.0 pg [facility] MCHC 33.8 31.7 - 35.0 g/dL [facility] Platelets 219 145 - 357 x10(3)/[facility] LABORATORY RDWSD 47.0(H) 37.0 - 46.0 [facility] LABORATORY RDWCV 13.7 11.5 - 14.1 % [facility] MPV 11.0 7.6 - 12.9 [facility] LABORATORY nRBC % Auto 0.0 % [facility] LABORATORY nRBC Abs Auto 0.000 0.000 - 0.000 x10(3)/[facility] LABORATORY Blood 07/04/2023 3:47 AM EDT 07/04/2023 4:15 AM EDT Narrative Resulting Agency Comment Spec In Lab Terrence Keating MD HEMATOLOGY ORDERABLE S Performing Organization Address [facility]/ZIP Co de Phone Number [facility] [place] [address] * Heparin (unfractionated) Level (07/04/2023 3:47 AM EDT) Heparin UFH Level 0.44 IU/mL [facility] Comment: Heparin (anti-Xa) levels should be [...] cardiac surgery): 0.1 ? 0.3 IU/mL Blood 07/04/2023 3:47 AM EDT 07/04/2023 4:15 AM EDT Narrative Resulting Agency Comment Spec In Lab Ailyn Irvin MD HEMATOLOGY ORDERABLE S Performing Organization Address [facility]/ZIP Co de Phone Number [facility] [place] [address] * (ABNORMAL) Basic Metabolic Panel (non-fasting) (07/04/2023 3:47 AM EDT) Glucose Lvl 104 65 - 199 mg/dL [facility] Comment:Diabetes: >=200 mg/d L plus symptoms BUN 16 8 - 18 mg/dL [facility] Creatinine 1.28(H) 0.70 - 1.20 mg/dL [facility] Sodium 139 135 - 145 mmol/L [facility] Potassium 3.8 3.5 - 5.0 mmol/L [facility] Comment: Please note: ??Patients with WBC >100,000 may have falsely elevated Potassium levels. ??For accurate Potassium quantification in these patients send serum separator tube (gold top) for subsequent determinations. ??Contact the Clinical Chemistry Laboratory if there are any questions. Chloride 102 98 - 107 mmol/L [facility] CO2 21(L) 22 - 31 mmol/L [facility] Anion Gap 16(H) 5 - 15 mmol/L [facility] Calcium 9.5 8.5 - 10.5 mg/dL [facility] Estimated GFR 50(L) >=60 mL/min/1. 73 m?? [facility] Comment: This patient's estimated GFR was [...] and symptoms in addition to eGFR. Blood 07/04/2023 3:47 AM EDT 07/04/2023 4:15 AM EDT Narrative Resulting Agency Comment Spec In Lab Eufemia Copeland MD CHEMISTRY ORDERABL ES [facility] [place] [address] * (ABNORMAL) Phosphorus (07/04/2023 3:47 AM EDT) Phosphorus 4.9(H) 2.5 - 4.5 mg/dL [facility] Blood 07/04/2023 3:47 AM EDT 07/04/2023 4:15 AM EDT Narrative Resulting Agency Comment Spec In Lab Eufemia Copeland MD CHEMISTRY ORDERABL ES Performing Organization Address City/[facility]/ZIP Co de Phone Number [facility] [place] [address] * Magnesium (07/04/2023 3:47 AM EDT) Magnesium 1.05 0.69 - 1.07 mmol/L [facility] Blood 07/04/2023 3:47 AM EDT 07/04/2023 4:15 AM EDT Narrative Resulting Agency Comment Spec In Lab Eufemia Copeland MD CHEMISTRY ORDERABL ES Performing Organization Address [facility] Co de Phone Number [facility] [place] [address] * EKG 12 Lead (07/03/2023 9:36 PM EDT) Ventricular rate 61 BPM MUSE SYSTEM Atrial Rate 61 BPM MUSE SYSTEM P-R Interval 188 ms MUSE SYSTEM QRS Duration 88 ms MUSE SYSTEM Q-T Interval 512 ms MUSE SYSTEM QTC Calculated (Bezet) 515 ms MUSE SYSTEM Calculated P [place] 56 degrees MUSE SYSTEM Calculated R [place] 69 degrees MUSE SYSTEM Calculated T [place] 29 degrees MUSE SYSTEM INTERPRETATION Normal sinus rhythm Possible Lateral infarct (cited on or before 30-JUN-2023) Marked ST abnormality, possible inferior subendocardial injury Prolonged QT Abnormal ECG When compared with ECG of 03-JUL-2023 14:27, Nonspecific T wave abnormality no longer evident in Anterior leads Confirmed by MD Henderson Katharine ([id number]) on 07/05/2023 6:21:08 AM MUSE SYSTEM 07/03/2023 9:36 PM EDT 07/05/2023 6:21 AM EDT Lisa Beck MD ECG ORDERABLES Performing Organization Address [facility] Co de Phone Number MUSE SYSTEM * Magnesium (07/03/2023 6:00 PM EDT) Magnesium 0.89 0.69 - 1.07 mmol/L [facility] Blood 07/03/2023 6:00 PM EDT 07/03/2023 6:07 PM EDT Narrative Resulting Agency Comment Spec In Lab Lino Calles MD CHEMISTRY ORDERABLES [facility] [place] [address] * (ABNORMAL) Basic Metabolic Panel (non-fasting) (07/03/2023 6:00 PM EDT) Glucose Lvl 116 65 - 199 mg/dL [facility] Comment:Diabetes: >=200 mg/d L plus symptoms BUN 16 8 - 18 mg/dL [facility] Creatinine 1.37(H) 0.70 - 1.20 mg/dL [facility] Sodium 137 135 - 145 mmol/L [facility] Potassium 4.1 3.5 - 5.0 mmol/L [facility] Comment: Please note: ??Patients with WBC >100,000 may have falsely elevated Potassium levels. ??For accurate Potassium quantification in these patients send serum separator tube (gold top) for subsequent determinations. ??Contact the Clinical Chemistry Laboratory if there are any questions. Chloride 102 98 - 107 mmol/L [facility] CO2 21(L) 22 - 31 mmol/L [facility] Anion Gap 14 5 - 15 mmol/L [facility] Calcium 9.5 8.5 - 10.5 mg/dL [facility] Estimated GFR 46(L) >=60 mL/min/1. 73 m?? [facility] Comment: This patient's estimated GFR was [...] and symptoms in addition to eGFR. Blood 07/03/2023 6:00 PM EDT 07/03/2023 6:07 PM EDT Narrative Resulting Agency Comment Spec In Lab Lino Calles [place] [address] * XR Chest One View (07/03/2023 3:18 PM EDT) WORKSTATION ID [id number] RAD Anatomical Region Laterality Modality Chest N/A Digital Radiogra phy Impressions 07/03/2023 3:27 PM EDT No pulmonary edema or pleural effusion Thank you for letting us participate in the care of this patient. ??If you are a health care provider and have any questions regarding this report, please contact the number below. ??For patients who have questions please contact the health professional healthcare representative that requested 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 ? Narrative [...] patients who have questions please contactthe health professional healthcare representative that requested 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 Electronically signed by: Itz Hayward MD, [facility]([phone]), at 07/03/2023 3:27 PM Lino Calles MD IMG DX ORDERABLES * Arterial Duplex Leg, Unil (07/03/2023 9:34 AM EDT) VB Text Report Department: Vascular Surgery Lab Patient: [id number] (LOIDA ROQUE) CPT: 37861 Referring Physician: LINO CALLES ?? Phone: Indications: ??right groin pain after [...] these preliminary findings. Electronically Signed by: CARLOTA KAMARA MD on 2023-07-05 04:12:30 PM VASCUBASE VB Text Report End of Report VASCUBASE 07/03/2023 9:34 AM EDT Lino Calles MD VASCULAR ORDERABLES VASCUBASE * Differential, Automated (07/03/2023 3:07 AM EDT) Neutrophils % 67.2 % [facility] Neutr Abs (ANC) 5.51 1.70 - 6.10 x10(3)/[facility] LABORATORY Lymphocytes % 20.7 % [facility] Lymphocytes Abs 1.7 0.9 - 3.2 x10(3)/[facility] LABORATORY Monocytes % 7.7 % [facility] Monocyte Abs 0.6 0.3 - 0.9 x10(3)/[facility] LABORATORY Eosinophils % 3.7 % [facility] Eosinophils Abs 0.3 0.0 - 0.4 x10(3)/[facility] LABORATORY Basophils % 0.5 % [facility] Basophils Abs 0.0 0.0 - 0.1 x10(3)/[facility] LABORATORY Immature Gran % 0.20 % [facility] Comment: Immature granulocytes(IG's)percentage and absolute count will include metamyelocytes, myelocytes, and promyelocytes. Blood smears from CBCs yielding IG's will be scanned manually for concordance. If this scan disagrees with the automated IG or if promyelocytes are noted, a manual differential will be performed. Shonda Gran Abs 0.02 0.00 - 0.04 x10(3)/[facility] LABORATORY Blood 07/03/2023 3:07 AM EDT 07/03/2023 3:15 AM EDT Narrative Resulting Agency Comment Spec In Lab Terrence Keating MD HEMATOLOGY ORDERABLE S [facility] [place] [address] * (ABNORMAL) Hemogram (07/03/2023 3:07 AM EDT) WBC 8.2 4.0 - 9.5 x10(3)/[facility] LABORATORY RBC 3.97(L) 4.00 - 5.21 x10(6)/[facility] LABORATORY Hemoglobin 12.5 11.7 - 15.5 g/dL [facility] Hematocrit 38.5 35.7 - 45.8 % [facility] MCV 97.0(H) 82.6 - 94.4 [facility] LABORATORY MCH 31.5 27.1 - 32.0 pg [facility] MCHC 32.5 31.7 - 35.0 g/dL [facility] Platelets 203 145 - 357 x10(3)/[facility] LABORATORY RDWSD 49.6(H) 37.0 - 46.0 [facility] LABORATORY RDWCV 13.7 11.5 - 14.1 % [facility] MPV 10.8 7.6 - 12.9 [facility] LABORATORY nRBC % Auto 0.0 % [facility] nRBC Abs Auto 0.000 0.000 - 0.000 x10(3)/[facility] LABORATORY Blood 07/03/2023 3:07 AM EDT 07/03/2023 3:15 AM EDT Narrative Resulting Agency Comment Spec In Lab Terrence Keating MD HEMATOLOGY ORDERABLE S [facility] [place] [address] * Heparin (unfractionated) Level (07/03/2023 3:07 AM EDT) Pathologist [facility] Heparin UFH Level 0.49 IU/mL [facility] Comment: Heparin (anti-Xa) levels should be [...] cardiac surgery): 0.1 ? 0.3 IU/mL Blood 07/03/2023 3:07 AM EDT 07/03/2023 3:15 AM EDT Narrative Resulting Agency Comment Spec In Lab Ailyn Irvin MD HEMATOLOGY ORDERABLE S [facility] [place] [address] * (ABNORMAL) Basic Metabolic Panel (non-fasting) (07/03/2023 3:07 AM EDT) [facility] Glucose Lvl 104 65 - 199 mg/dL [facility] Comment:Diabetes: >=200 mg/d L plus symptoms BUN 16 8 - 18 mg/dL [facility] Creatinine 1.20 0.70 - 1.20 mg/dL [facility] Sodium 138 135 - 145 mmol/L [facility] Potassium 4.2 3.5 - 5.0 mmol/L [facility] Comment: Please note: ??Patients with WBC >100,000 may have falsely elevated Potassium levels. ??For accurate Potassium quantification in these patients send serum separator tube (gold top) for subsequent determinations. ??Contact the Clinical Chemistry Laboratory if there are any questions. Chloride 107 98 - 107 mmol/L [facility] CO2 20(L) 22 - 31 mmol/L [facility] Anion Gap 11 5 - 15 mmol/L [facility] Calcium 8.8 8.5 - 10.5 mg/dL [facility] Estimated GFR 54(L) >=60 mL/min/1. 73 m?? [facility] Comment: This patient's estimated GFR was [...] and symptoms in addition to eGFR. Blood 07/03/2023 3:07 AM EDT 07/03/2023 3:15 AM EDT Narrative Resulting Agency Comment Spec In Lab Eufemia Copeland MD CHEMISTRY ORDERABL ES Performing Organization Address City/[facility]/ZIP Co de Phone Number [facility] [place] [address] * Phosphorus (07/03/2023 3:07 AM EDT) Phosphorus 3.6 2.5 - 4.5 mg/dL [facility] Blood 07/03/2023 3:07 AM EDT 07/03/2023 3:15 AM EDT Narrative Resulting Agency Comment Spec In Lab Eufemia Copeland MD CHEMISTRY ORDERABL ES Performing Organization Address City/[facility]/ZIP Co de Phone Number [facility] [place] [address] * Magnesium (07/03/2023 3:07 AM EDT) Magnesium 0.93 0.69 - 1.07 mmol/L [facility] Blood 07/03/2023 3:07 AM EDT 07/03/2023 3:15 AM EDT Narrative Resulting Agency Comment Spec In Lab Eufemia Copeland MD CHEMISTRY ORDERABL ES Performing Organization Address [facility] Co de Phone Number [facility] [place] [address] * Heparin (unfractionated) Level (07/02/2023 8:58 PM EDT) Heparin UFH Level 0.60 IU/mL [facility] Comment: Heparin (anti-Xa) levels should be [...] cardiac surgery): 0.1 ? 0.3 IU/mL Blood 07/02/2023 8:58 PM EDT 07/02/2023 9:04 PM EDT Narrative Resulting Agency Comment Spec In Lab Lino Calles MD HEMATOLOGY ORDERABLE S Performing Organization Address [facility]/ZIP Co de Phone Number [facility] [place] [address] * VS Arteriogram Mesenteric Vascular Surgery (07/02/2023 [...] anesthetic: 10 cc 1% lidocaine Heparin: Yes 46062 ?? Units Protamine: No ??mg Antibiotics: Ancef [...] We exchanged the sheath for a 7 Slovak roll contour grinder steerable sheath over a stiff wire. ??A Glidewire and Kumpe catheter were used to selectively cannulate the superior mesenteric artery. ??Direct angiography of the superior mesenteric artery was performed, confirming the results of the nonselective aortography performed. ??The lesion was predilated with a 4 mm x 40 mm Gallagher balloon, and then a 6 mm X [...] Henrietta Judge MD 07/07/2023 10:48 AM Ailyn Irvin MD IMG IR ORDERABLES * Differential, Automated (07/02/2023 3:58 AM EDT) Neutrophils % 61.3 % [facility] Neutr Abs (ANC) 4.67 1.70 - 6.10 x10(3)/[facility] LABORATORY Lymphocytes % 27.6 % [facility] Lymphocytes Abs 2.1 0.9 - 3.2 x10(3)/[facility] LABORATORY Monocytes % 6.4 % [facility] Monocyte Abs 0.5 0.3 - 0.9 x10(3)/[facility] LABORATORY Eosinophils % 3.9 % [facility] Eosinophils Abs 0.3 0.0 - 0.4 x10(3)/[facility] LABORATORY Basophils % 0.5 % [facility] Basophils Abs 0.0 0.0 - 0.1 x10(3)/[facility] LABORATORY Immature Gran % 0.30 % [facility] Comment: Immature granulocytes(IG's)percentage and absolute count will include metamyelocytes, myelocytes, and promyelocytes. Blood smears from CBCs yielding IG's will be scanned manually for concordance. If this scan disagrees with the automated IG or if promyelocytes are noted, a manual differential will be performed. Shonda Gran Abs 0.02 0.00 - 0.04 x10(3)/[facility] LABORATORY Blood 07/02/2023 3:58 AM EDT 07/02/2023 4:14 AM EDT Narrative Resulting Agency Comment Spec In Lab Terrence Keating MD HEMATOLOGY ORDERABLE S [facility] [place] [address] * (ABNORMAL) Hemogram (07/02/2023 3:58 AM EDT) Pathologist [facility] WBC 7.6 4.0 - 9.5 x10(3)/[facility] LABORATORY RBC 4.12 4.00 - 5.21 x10(6)/[facility] LABORATORY Hemoglobin 12.9 11.7 - 15.5 g/dL [facility] Hematocrit 39.5 35.7 - 45.8 % [facility] MCV 95.9(H) 82.6 - 94.4 [facility] LABORATORY MCH 31.3 27.1 - 32.0 pg [facility] MCHC 32.7 31.7 - 35.0 g/dL [facility] Platelets 200 145 - 357 x10(3)/[facility] LABORATORY RDWSD 47.4(H) 37.0 - 46.0 [facility] LABORATORY RDWCV 13.3 11.5 - 14.1 % [facility] MPV 10.8 7.6 - 12.9 [facility] LABORATORY nRBC % Auto 0.0 % [facility] nRBC Abs Auto 0.000 0.000 - 0.000 x10(3)/[facility] LABORATORY Blood 07/02/2023 3:58 AM EDT 07/02/2023 4:14 AM EDT Narrative Resulting Agency Comment Spec In Lab Terrence Keating MD HEMATOLOGY ORDERABLE S [facility] [place] [address] * Heparin (unfractionated) Level (07/02/2023 3:58 AM EDT) Pathologist [facility] Heparin UFH Level 0.57 IU/mL [facility] Comment: Heparin (anti-Xa) levels should be [...] cardiac surgery): 0.1 ? 0.3 IU/mL Blood 07/02/2023 3:58 AM EDT 07/02/2023 4:14 AM EDT Narrative Resulting Agency Comment Spec In Lab Ailyn Irvin MD HEMATOLOGY ORDERABLE S [facility] [place] [address] * (ABNORMAL) Basic Metabolic Panel (non-fasting) (07/02/2023 3:58 AM EDT) [facility] Glucose Lvl 96 65 - 199 mg/dL [facility] Comment:Diabetes: >=200 mg/d L plus symptoms BUN 15 8 - 18 mg/dL [facility] Creatinine 1.21(H) 0.70 - 1.20 mg/dL [facility] Sodium 133(L) 135 - 145 mmol/L [facility] Potassium 4.1 3.5 - 5.0 mmol/L [facility] Comment: Please note: ??Patients with WBC >100,000 may have falsely elevated Potassium levels. ??For accurate Potassium quantification in these patients send serum separator tube (gold top) for subsequent determinations. ??Contact the Clinical Chemistry Laboratory if there are any questions. Chloride 104 98 - 107 mmol/L [facility] CO2 21(L) 22 - 31 mmol/L [facility] Anion Gap 8 5 - 15 mmol/L [facility] Calcium 8.8 8.5 - 10.5 mg/dL [facility] Estimated GFR 53(L) >=60 mL/min/1. 73 m?? [facility] Comment: This patient's estimated GFR was [...] and symptoms in addition to eGFR. Blood 07/02/2023 3:58 AM EDT 07/02/2023 4:14 AM EDT Narrative Resulting Agency Comment Spec In Lab Eufemia Copeland MD CHEMISTRY ORDERABL ES Performing Organization Address City/[facility]/ZIP Co de Phone Number [facility] [place] [address] * Phosphorus (07/02/2023 3:58 AM EDT) Phosphorus 3.8 2.5 - 4.5 mg/dL [facility] Blood 07/02/2023 3:58 AM EDT 07/02/2023 4:14 AM EDT Narrative Resulting Agency Comment Spec In Lab Eufemia Copeland MD CHEMISTRY ORDERABL ES [facility] [place] [address] * Magnesium (07/02/2023 3:58 AM EDT) Magnesium 0.95 0.69 - 1.07 mmol/L [facility] Blood 07/02/2023 3:58 AM EDT 07/02/2023 4:14 AM EDT Narrative Resulting Agency Comment Spec In Lab Eufemia Copeland MD CHEMISTRY ORDERABL ES Performing Organization Address City/[facility]/ZIP Co de Phone Number [facility] [place] [address] * EKG 12 Lead (07/01/2023 12:08 PM EDT) Ventricular rate 48 BPM MUSE SYSTEM Atrial Rate 48 BPM MUSE SYSTEM P-R Interval 192 ms MUSE SYSTEM QRS Duration 92 ms MUSE SYSTEM Q-T Interval 474 ms MUSE SYSTEM QTC Calculated (Bezet) 423 ms MUSE SYSTEM Calculated P [place] 32 degrees MUSE SYSTEM Calculated R [place] 45 degrees MUSE SYSTEM Calculated T [place] 0 degrees MUSE SYSTEM INTERPRETATION Sinus bradycardia Lateral infarct (cited on or before 30-JUN-2023) Abnormal ECG When compared with ECG of 30-JUN-2023 12:05, Nonspecific T wave abnormality, worse in Inferior leads Nonspecific T wave abnormality, worse in Anterolateral leads QT has shortened Confirmed by MD NAILA, KAUSHIK ([id number]) on 07/01/2023 2:03:56 PM MUSE SYSTEM 07/01/2023 12:0 8 PM EDT 07/01/2023 2:03 PM EDT Terrence Keating MD ECG ORDERABLES Performing Organization Address [facility]/ZIP Co de Phone Number MUSE SYSTEM * Differential, Automated (07/01/2023 2:56 AM EDT) Neutrophils % 50.5 % [facility] Neutr Abs (ANC) 3.47 1.70 - 6.10 x10(3)/[facility] Lymphocytes % 36.5 % [facility] Lymphocytes Abs 2.5 0.9 - 3.2 x10(3)/[facility] Monocytes % 7.7 % [facility] Monocyte Abs 0.5 0.3 - 0.9 x10(3)/[facility] Eosinophils % 4.5 % [facility] Eosinophils Abs 0.3 0.0 - 0.4 x10(3)/[facility] Basophils % 0.7 % [facility] Basophils Abs 0.0 0.0 - 0.1 x10(3)/[facility] Immature Gran % 0.10 % [facility] Comment: Immature granulocytes(IG's)percentage and absolute count will include metamyelocytes, myelocytes, and promyelocytes. Blood smears from CBCs yielding IG's will be scanned manually for concordance. If this scan disagrees with the automated IG or if promyelocytes are noted, a manual differential will be performed. Shonda Gran Abs 0.01 0.00 - 0.04 x10(3)/[facility] Blood 07/01/2023 2:56 AM EDT 07/01/2023 3:22 AM EDT Narrative Resulting Agency Comment Spec In Lab Terrence Keating MD HEMATOLOGY ORDERABLE S [facility] [place] [address] * (ABNORMAL) Hemogram (07/01/2023 2:56 AM EDT) WBC 6.9 4.0 - 9.5 x10(3)/[facility] RBC 4.04 4.00 - 5.21 x10(6)/[facility] Hemoglobin 12.8 11.7 - 15.5 g/dL [facility] Hematocrit 39.0 35.7 - 45.8 % [facility] MCV 96.5(H) 82.6 - 94.4 fL [facility] MCH 31.7 27.1 - 32.0 pg [facility] MCHC 32.8 31.7 - 35.0 g/dL [facility] Platelets 224 145 - 357 x10(3)/[facility] RDWSD 47.8(H) 37.0 - 46.0 fL [facility] RDWCV 13.3 11.5 - 14.1 % [facility] MPV 11.1 7.6 - 12.9 fL [facility] nRBC % Auto 0.0 % [facility] nRBC Abs Auto 0.000 0.000 - 0.000 x10(3)/mcL [facility] Blood 07/01/2023 2:56 AM EDT 07/01/2023 3:22 AM EDT Narrative Resulting Agency Comment Spec In Lab Terrence Keating MD HEMATOLOGY ORDERABLE S Performing Organization Address [facility] Co de Phone Number [facility] [place] [address] * Heparin (unfractionated) Level (07/01/2023 2:56 AM EDT) Heparin UFH Level 0.56 IU/mL [facility] Comment: Heparin (anti-Xa) levels should be [...] cardiac surgery): 0.1 ? 0.3 IU/mL Blood 07/01/2023 2:56 AM EDT 07/01/2023 3:22 AM EDT Narrative Resulting Agency Comment Spec In Lab Ailyn Irvin MD HEMATOLOGY ORDERABLE S Performing Organization Address City/[facility]/ZIP Co de Phone Number [facility] [place] [address] * (ABNORMAL) Basic Metabolic Panel (non-fasting) (07/01/2023 2:56 AM EDT) Glucose Lvl 95 65 - 199 mg/dL [facility] Comment:Diabetes: >=200 mg/d L plus symptoms BUN 16 8 - 18 mg/dL [facility] Creatinine 1.21(H) 0.70 - 1.20 mg/dL [facility] Sodium 137 135 - 145 mmol/L [facility] Potassium 4.1 3.5 - 5.0 mmol/L [facility] Comment: Please note: ??Patients with WBC >100,000 may have falsely elevated Potassium levels. ??For accurate Potassium quantification in these patients send serum separator tube (gold top) for subsequent determinations. ??Contact the Clinical Chemistry Laboratory if there are any questions. Chloride 105 98 - 107 mmol/L [facility] CO2 22 22 - 31 mmol/L [facility] Anion Gap 10 5 - 15 mmol/L [facility] Calcium 9.0 8.5 - 10.5 mg/dL [facility] Estimated GFR 53(L) >=60 mL/min/1. 73 m?? [facility] Comment: This patient's estimated GFR was [...] and symptoms in addition to eGFR. Blood 07/01/2023 2:56 AM EDT 07/01/2023 3:22 AM EDT Narrative Resulting Agency Comment Spec In Lab Eufemia Copeland MD CHEMISTRY ORDERABL ES [facility] [place] [address] * Phosphorus (07/01/2023 2:56 AM EDT) Phosphorus 4.1 2.5 - 4.5 mg/dL [facility] Blood 07/01/2023 2:56 AM EDT 07/01/2023 3:22 AM EDT Narrative Resulting Agency Comment Spec In Lab Eufemia Copeland MD CHEMISTRY ORDERABL ES Performing Organization Address [facility] Co de Phone Number [facility] [place] [address] * Magnesium (07/01/2023 2:56 AM EDT) Magnesium 0.95 0.69 - 1.07 mmol/L [facility] Blood 07/01/2023 2:56 AM EDT 07/01/2023 3:22 AM EDT Narrative Resulting Agency Comment Spec In Lab Eufemia Copeland MD CHEMISTRY ORDERABL ES Performing Organization Address [facility] de Phone Number [facility] [place] [address] * Heparin (unfractionated) Level (06/30/2023 9:24 AM EDT) Heparin UFH Level 0.62 IU/mL [facility] Comment: Heparin (anti-Xa) levels should be [...] cardiac surgery): 0.1 ? 0.3 IU/mL Blood 06/30/2023 9:24 AM EDT 06/30/2023 9:39 AM EDT Narrative Resulting Agency Comment Spec In Lab Ailyn Irvin MD HEMATOLOGY ORDERABLE S [facility] [place] [address] * Differential, Automated (06/30/2023 3:14 AM EDT) Neutrophils % 49.5 % [facility] Neutr Abs (ANC) 3.96 1.70 - 6.10 x10(3)/[facility] Lymphocytes % 36.6 % [facility] Lymphocytes Abs 2.9 0.9 - 3.2 x10(3)/[facility] Monocytes % 8.6 % [facility] Monocyte Abs 0.7 0.3 - 0.9 x10(3)/[facility] Eosinophils % 4.1 % [facility] Eosinophils Abs 0.3 0.0 - 0.4 x10(3)/[facility] Basophils % 0.8 % [facility] Basophils Abs 0.1 0.0 - 0.1 x10(3)/[facility] Immature Gran % 0.40 % [facility] Comment: Immature granulocytes(IG's)percentage and absolute count will include metamyelocytes, myelocytes, and promyelocytes. Blood smears from CBCs yielding IG's will be scanned manually for concordance. If this scan disagrees with the automated IG or if promyelocytes are noted, a manual differential will be performed. Shonda Gran Abs 0.03 0.00 - 0.04 x10(3)/[facility] Blood 06/30/2023 3:14 AM EDT 06/30/2023 3:23 AM EDT Narrative Resulting Agency Comment Spec In Lab Terrence Keating MD HEMATOLOGY ORDERABLE S [facility] [place] [address] * Hemogram (06/30/2023 3:14 AM EDT) WBC 8.0 4.0 - 9.5 x10(3)/[facility] RBC 4.22 4.00 - 5.21 x10(6)/[facility] Hemoglobin 13.1 11.7 - 15.5 g/dL [facility] Hematocrit 39.5 35.7 - 45.8 % [facility] MCV 93.6 82.6 - 94.4 fL [facility] MCH 31.0 27.1 - 32.0 pg [facility] MCHC 33.2 31.7 - 35.0 g/dL [facility] Platelets 235 145 - 357 x10(3)/[facility] RDWSD 45.3 37.0 - 46.0 [facility] RDWCV 13.3 11.5 - 14.1 % [facility] MPV 11.0 7.6 - 12.9 [facility] nRBC % Auto 0.0 % [facility] nRBC Abs Auto 0.000 0.000 - 0.000 x10(3)/[facility] Blood 06/30/2023 3:14 AM EDT 06/30/2023 3:23 AM EDT Narrative Resulting Agency Comment Spec In Lab Terrence Keating MD HEMATOLOGY ORDERABLE S [facility] [place] [address] * Heparin (unfractionated) Level (06/30/2023 3:14 AM EDT) Pathologist [facility] Heparin UFH Level 0.70 IU/mL [facility] Comment: Heparin (anti-Xa) levels should be [...] cardiac surgery): 0.1 ? 0.3 IU/mL Blood 06/30/2023 3:14 AM EDT 06/30/2023 3:23 AM EDT Narrative Resulting Agency Comment Spec In Lab Terrence Keating MD HEMATOLOGY ORDERABLE S [facility] [place] [address] * (ABNORMAL) Basic Metabolic Panel (non-fasting) (06/30/2023 3:14 AM EDT) Glucose Lvl 103 65 - 199 mg/dL [facility] Comment:Diabetes: >=200 mg/d L plus symptoms BUN 18 8 - 18 mg/dL [facility] Creatinine 1.22(H) 0.70 - 1.20 mg/dL [facility] Sodium 137 135 - 145 mmol/L [facility] Potassium 3.8 3.5 - 5.0 mmol/L [facility] Comment: Please note: ??Patients with WBC >100,000 may have falsely elevated Potassium levels. ??For accurate Potassium quantification in these patients send serum separator tube (gold top) for subsequent determinations. ??Contact the Clinical Chemistry Laboratory if there are any questions. Chloride 104 98 - 107 mmol/L [facility] CO2 23 22 - 31 mmol/L [facility] Anion Gap 10 5 - 15 mmol/L [facility] Calcium 9.1 8.5 - 10.5 mg/dL [facility] Estimated GFR 53(L) >=60 mL/min/1. 73 m?? [facility] Comment: This patient's estimated GFR was [...] and symptoms in addition to eGFR. Blood 06/30/2023 3:14 AM EDT 06/30/2023 3:23 AM EDT Narrative Resulting Agency Comment Spec In Lab Eufemia Copeland MD CHEMISTRY ORDERABL ES Performing Organization Address [facility] Co de Phone Number [facility] [place] [address] * Phosphorus (06/30/2023 3:14 AM EDT) Phosphorus 4.4 2.5 - 4.5 mg/dL [facility] Blood 06/30/2023 3:14 AM EDT 06/30/2023 3:23 AM EDT Narrative Resulting Agency Comment Spec In Lab Eufemia Copeland MD CHEMISTRY ORDERABL ES Performing Organization Address City/[facility]/ZIP Co de Phone Number [facility] [place] [address] * Magnesium (06/30/2023 3:14 AM EDT) Magnesium 0.94 0.69 - 1.07 mmol/L [facility] Blood 06/30/2023 3:14 AM EDT 06/30/2023 3:23 AM EDT Narrative Resulting Agency Comment Spec In Lab Eufemia Copeland MD CHEMISTRY ORDERABL ES Performing Organization Address [facility] Co de Phone Number [facility] [place] [address] * Heparin (unfractionated) Level (06/29/2023 8:47 PM EDT) [facility] Heparin UFH Level 0.75 IU/mL [facility] Comment: Heparin (anti-Xa) levels should be [...] cardiac surgery): 0.1 ? 0.3 IU/mL Blood 06/29/2023 8:47 PM EDT 06/29/2023 8:51 PM EDT Narrative Resulting Agency Comment Spec In Lab Terrence Keating MD HEMATOLOGY ORDERABLE S Performing Organization Address [facility] Co de Phone Number [facility] [place] [address] * EKG 12 Lead (06/29/2023 12:55 PM EDT) [facility] Ventricular rate 53 BPM MUSE SYSTEM Atrial Rate 53 BPM MUSE SYSTEM P-R Interval 196 ms MUSE SYSTEM QRS Duration 90 ms MUSE SYSTEM Q-T Interval 564 ms MUSE SYSTEM QTC Calculated (Bezet) 529 ms MUSE SYSTEM Calculated P [place] 30 degrees MUSE SYSTEM Calculated R [place] 53 degrees MUSE SYSTEM Calculated T [place] 5 degrees MUSE SYSTEM INTERPRETATION Sinus bradycardia Marked ST abnormality, possible inferior subendocardial injury Prolonged QT Abnormal ECG When compared with ECG of 26-JUN-2023 06:04, Nonspecific T wave abnormality no longer evident in Anterolateral leads QT has lengthened Confirmed by MD Angelo Danette ([id number]) on 06/29/2023 8:34:43 PM MUSE SYSTEM 06/29/2023 12:5 5 PM EDT 06/29/2023 8:34 PM EDT Terrence Keating MD ECG ORDERABLES Performing Organization Address City/[facility]/ZIP Co de Phone Number MUSE SYSTEM * (ABNORMAL) Heparin (unfractionated) Level (06/29/2023 11:34 AM EDT) Heparin UFH Level 1.41(Crit ical) IU/mL [facility] Comment: Critical Result called by ?? SILLJR CRITICAL Results read back by: ? Chilo Nickerson at 2023-06-29 12:14:07 Heparin (anti-Xa) levels should be determined in [...] cardiac surgery): 0.1 ? 0.3 IU/mL Blood 06/29/2023 11:3 4 AM EDT 06/29/2023 11:59 AM EDT Narrative Resulting Agency Comment Spec In Lab Ailyn Irvin MD HEMATOLOGY ORDERABLE S [facility] [place] [address] * Differential, Automated (06/29/2023 2:39 AM EDT) Neutrophils % 53.8 % [facility] Neutr Abs (ANC) 4.46 1.70 - 6.10 x10(3)/mcL [facility] Lymphocytes % 33.5 % [facility] Lymphocytes Abs 2.8 0.9 - 3.2 x10(3)/[facility] Monocytes % 8.3 % [facility] Monocyte Abs 0.7 0.3 - 0.9 x10(3)/[facility] Eosinophils % 3.5 % [facility] Eosinophils Abs 0.3 0.0 - 0.4 x10(3)/[facility] Basophils % 0.5 % [facility] Basophils Abs 0.0 0.0 - 0.1 x10(3)/[facility] Immature Gran % 0.40 % [facility] Comment: Immature granulocytes(IG's)percentage and absolute count will include metamyelocytes, myelocytes, and promyelocytes. Blood smears from CBCs yielding IG's will be scanned manually for concordance. If this scan disagrees with the automated IG or if promyelocytes are noted, a manual differential will be performed. Shonda Gran Abs 0.03 0.00 - 0.04 x10(3)/[facility] Blood 06/29/2023 2:39 AM EDT 06/29/2023 3:33 AM EDT Narrative Resulting Agency Comment Spec In Lab Terrence Keating MD HEMATOLOGY ORDERABLE S [facility] [place] [address] * Hemogram (06/29/2023 2:39 AM EDT) WBC 8.3 4.0 - 9.5 x10(3)/[facility] RBC 4.19 4.00 - 5.21 x10(6)/[facility] Hemoglobin 13.2 11.7 - 15.5 g/dL [facility] Hematocrit 38.9 35.7 - 45.8 % [facility] MCV 92.8 82.6 - 94.4 fL [facility] MCH 31.5 27.1 - 32.0 pg [facility] MCHC 33.9 31.7 - 35.0 g/dL [facility] Platelets 237 145 - 357 x10(3)/[facility] RDWSD 45.3 37.0 - 46.0 fL [facility] RDWCV 13.3 11.5 - 14.1 % [facility] MPV 11.4 7.6 - 12.9 fL [facility] nRBC % Auto 0.0 % [facility] nRBC Abs Auto 0.000 0.000 - 0.000 x10(3)/[facility] Blood 06/29/2023 2:39 AM EDT 06/29/2023 3:33 AM EDT Narrative Resulting Agency Comment Spec In Lab Terrence Keating MD HEMATOLOGY ORDERABLE S Performing Organization Address City/State/[facility] Co de Phone Number [facility] [place] [address] * (ABNORMAL) Heparin (unfractionated) Level (06/29/2023 2:39 AM EDT) Heparin UFH Level 1.77(Crit ical) IU/mL [facility] Comment: Specimen drawn more than one hour prior to testing. Results may not be reliable for heparin monitoring. Result may be falsely low. Critical Result called by ?? MANA CRITICAL Results read back by: ? Guilherme Medina at 2023-06-29 03:54:18 Heparin (anti-Xa) levels should be determined in [...] cardiac surgery): 0.1 ? 0.3 IU/mL Blood 06/29/2023 2:39 AM EDT 06/29/2023 3:33 AM EDT Narrative Resulting Agency Comment Spec In Lab Ailyn Irvin MD HEMATOLOGY ORDERABLE S [facility] [place] [address] * (ABNORMAL) Basic Metabolic Panel (non-fasting) (06/29/2023 2:39 AM EDT) Glucose Lvl 100 65 - 199 mg/dL [facility] Comment:Diabetes: >=200 mg/d L plus symptoms BUN 21(H) 8 - 18 mg/dL [facility] Creatinine 1.17 0.70 - 1.20 mg/dL [facility] Sodium 138 135 - 145 mmol/L [facility] Potassium 3.9 3.5 - 5.0 mmol/L [facility] Comment: Please note: ??Patients with WBC >100,000 may have falsely elevated Potassium levels. ??For accurate Potassium quantification in these patients send serum separator tube (gold top) for subsequent determinations. ??Contact the Clinical Chemistry Laboratory if there are any questions. Chloride 105 98 - 107 mmol/L [facility] CO2 22 22 - 31 mmol/L [facility] Anion Gap 11 5 - 15 mmol/L [facility] Calcium 9.1 8.5 - 10.5 mg/dL [facility] Estimated GFR 55(L) >=60 mL/min/1. 73 m?? [facility] Comment: This patient's estimated GFR was [...] and symptoms in addition to eGFR. Blood 06/29/2023 2:39 AM EDT 06/29/2023 3:33 AM EDT Narrative Resulting Agency Comment Spec In Lab Eufemia Copeland MD CHEMISTRY ORDERABL ES Performing Organization Address [facility] Co de Phone Number [facility] [place] [address] * Phosphorus (06/29/2023 2:39 AM EDT) Phosphorus 4.0 2.5 - 4.5 mg/dL [facility] Blood 06/29/2023 2:39 AM EDT 06/29/2023 3:33 AM EDT Narrative Resulting Agency Comment Spec In Lab Eufemia Copeland MD CHEMISTRY ORDERABL ES Performing Organization Address [facility] Co de Phone Number [facility] [place] [address] * Magnesium (06/29/2023 2:39 AM EDT) Magnesium 0.92 0.69 - 1.07 mmol/L [facility] Blood 06/29/2023 2:39 AM EDT 06/29/2023 3:33 AM EDT Narrative Resulting Agency Comment Spec In Lab Eufemia Copeland MD CHEMISTRY ORDERABL ES Performing Organization Address [facility] Co de Phone Number [facility] [place] [address] * US Abdomen Limited (06/28/2023 12:22 PM EDT) WORKSTATION ID [id number] DH RAD Anatomical Region Laterality Modality Abdomen Ultrasound [...] Sigrid Owens MD at 06/28/2023 2:02 PM Electronically signed by: Sigrid Owens MD, [facility] ([phone]), at 06/28/2023 2:02 PM Thank you for letting us participate in the care of this patient. If you are a health care provider and have any questions regarding this report, please contact the number above. For patients who have questions, please contact the health professional healthcare representative that requested 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 ?Sigrid Owens, Esther Ocularist Electronically Signed Final Report ?? 06/28/2023 02:08 pm Narrative 06/28/2023 2:08 PM EDT Abdominal ? (Signed Final 06/28/2023 02:08 pm) PATIENT INFO: ID #: ? [id number] ?: ??[birth year] (53 yrs)(F) Name: ? LOIDA ?Visit Date: 06/28/2023 12:20 pm ? ROHAN PERFORMED BY: Attending: ?Sigrid Owens MD Resident: ? Karo JOHN, Rafaela Performed By: ? Rick STANFORD, ??Deena Referred By: ?AILYN IRVIN Location: ? [place] SERVICE(S) PROVIDED: UABDLIM - Abdominal Limited Survey Single ? [id number] Organ or Quadrant - [id number] INDICATIONS: RUQ pain, R/o Gall bladder colic, [...] 06/28/2023 02:08 pm) PATIENT INFO: ID #: [id number] : [birth year] (53 yrs)(F) Name: LOIDA Visit Date: 06/28/2023 12:20 pm ROHAN PERFORMED BY: Attending: Sigrid Owens MD Resident: Rafaela Huddleston MD Performed By: Deena Cabrera RDMS Referred By: AILYN IRVIN Location: [place] SERVICE(S) PROVIDED: UABDLIM - Abdominal Limited Survey Single 61991 Organ or Quadrant - [id number] INDICATIONS: RUQ pain, R/o Gall bladder colic, [...] Sigrid Owens MD at 06/28/2023 2:02 PM Electronically signed by: Sigrid Owens MD, [facility] ([phone]), at 06/28/2023 2:02 PM Thank you for letting us participate in the care of this patient. If you are a health care provider and have any questions regarding this report, please contact the number above. For patients who have questions, please contact the health professional healthcare representative that requested 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 Sigrid Owens, E Ocularist Electronically Signed Final Report 06/28/2023 02:08 pm Ailyn Irvin MD IMG US GEN ORDERABLE S * Duplex Study Visceral Arteries, Comp (06/28/2023 10:19 AM EDT) VB Text Report Department: Vascular Surgery Lab Patient: [id number] (LOIDA ROQUE) CPT: [id number] Referring Physician: HEIDY SULLIVAN ?? Indications: abdominal pain, ? patency/stenosi s Findings: Unilateral ? Waveform ? PSV cm/s ??EDV cm/s ??Patent ?? Dary Visceral Aorta ? 80 ?16 ? Celiac Artery, Proximal ??[place]-Biphasic ? 119 ?26 ? Celiac Artery, Mid ? [place]-Biphasic ? 115 ?21 ? Celiac Artery, Distal ? No Vis ?? Sup Mes Artery Proximal ??Biphasic ?427 ?91 ? Sup Mes Artery Middle ?[place]-Biphasic ? 100 ?17 ? Sup Mes Artery Distal ?[place]-Biphasic ?64 ?15 ? Hepatic Artery ?No Vis ?? Splenic Artery ?No Vis ?? Inf Mes Artery ?No Vis ?? 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 Patent proximal to mid celiac artery with no evidence of significant stenosis. Due to overlying bowel gas unable to visualize hepatic, splenic, inferior mesenteric, and distal celiac arteries cannot exclude elevated velocities/ stenosis here. Comparison: Previous exam on 06/23/23 was limited due to overlying bowel gas. Previous Celiac/Mesenter ic Studies: Date ? SMA PSV ?? EDV ?? Celiac PSV ?? EDV Current Exam ?? 427 ? 91 ?119 ? 26 Electronically Signed by: RAJ RAMSEY on 2023-06-28 01:35:55 PM VASCUBASE VB Text Report End of Report VASCUBASE 06/28/2023 10:1 9 AM EDT Heidy Sullivan APRN VASCULAR ORDERABLE S VASCU[facility] * Differential, Automated (06/28/2023 1:52 AM EDT) Neutrophils % 55.3 % [facility] Neutr Abs (ANC) 4.46 1.70 - 6.10 x10(3)/[facility] Lymphocytes % 30.6 % [facility] Lymphocytes Abs 2.5 0.9 - 3.2 x10(3)/[facility] Monocytes % 8.8 % [facility] Monocyte Abs 0.7 0.3 - 0.9 x10(3)/[facility] Eosinophils % 4.6 % [facility] Eosinophils Abs 0.4 0.0 - 0.4 x10(3)/[facility] Basophils % 0.5 % [facility] Basophils Abs 0.0 0.0 - 0.1 x10(3)/[facility] Immature Gran % 0.20 % [facility] Comment: Immature granulocytes(IG's)percentage and absolute count will include metamyelocytes, myelocytes, and promyelocytes. Blood smears from CBCs yielding IG's will be scanned manually for concordance. If this scan disagrees with the automated IG or if promyelocytes are noted, a manual differential will be performed. Shonda Gran Abs 0.02 0.00 - 0.04 x10(3)/[facility] Blood 06/28/2023 1:52 AM EDT 06/28/2023 2:05 AM EDT Narrative Resulting Agency Comment Spec In Lab Terrence Keating MD HEMATOLOGY ORDERABLE S [facility] [place] [address] * Hemogram (06/28/2023 1:52 AM EDT) WBC 8.1 4.0 - 9.5 x10(3)/[facility] RBC 4.30 4.00 - 5.21 x10(6)/[facility] Hemoglobin 13.4 11.7 - 15.5 g/dL [facility] Hematocrit 40.6 35.7 - 45.8 % [facility] MCV 94.4 82.6 - 94.4 [facility] MCH 31.2 27.1 - 32.0 pg [facility] MCHC 33.0 31.7 - 35.0 g/dL [facility] Platelets 238 145 - 357 x10(3)/[facility] RDWSD 45.7 37.0 - 46.0 [facility] RDWCV 13.2 11.5 - 14.1 % [facility] MPV 10.8 7.6 - 12.9 [facility] nRBC % Auto 0.0 % [facility] nRBC Abs Auto 0.000 0.000 - 0.000 x10(3)/[facility] Blood 06/28/2023 1:52 AM EDT 06/28/2023 2:05 AM EDT Narrative Resulting Agency Comment Spec In Lab Terrence Keating MD HEMATOLOGY ORDERABLE S [facility] [place] [address] * (ABNORMAL) Basic Metabolic Panel (non-fasting) (06/28/2023 1:52 AM EDT) Pathologist [facility] Glucose Lvl 101 65 - 199 mg/dL [facility] Comment:Diabetes: >=200 mg/d L plus symptoms BUN 24(H) 8 - 18 mg/dL [facility] Creatinine 1.21(H) 0.70 - 1.20 mg/dL [facility] Sodium 138 135 - 145 mmol/L [facility] Potassium 4.0 3.5 - 5.0 mmol/L [facility] Comment: Please note: ??Patients with WBC >100,000 may have falsely elevated Potassium levels. ??For accurate Potassium quantification in these patients send serum separator tube (gold top) for subsequent determinations. ??Contact the Clinical Chemistry Laboratory if there are any questions. Chloride 105 98 - 107 mmol/L [facility] CO2 21(L) 22 - 31 mmol/L [facility] Anion Gap 12 5 - 15 mmol/L [facility] Calcium 9.0 8.5 - 10.5 mg/dL [facility] Estimated GFR 53(L) >=60 mL/min/1. 73 m?? [facility] Comment: This patient's estimated GFR was [...] and symptoms in addition to eGFR. Blood 06/28/2023 1:52 AM EDT 06/28/2023 2:05 AM EDT Narrative Resulting Agency Comment Spec In Lab Eufemia Copeland MD CHEMISTRY ORDERABL ES [facility] [place] [address] * Phosphorus (06/28/2023 1:52 AM EDT) Phosphorus 4.5 2.5 - 4.5 mg/dL [facility] Blood 06/28/2023 1:52 AM EDT 06/28/2023 2:05 AM EDT Narrative Resulting Agency Comment Spec In Lab Eufemia Copeland MD CHEMISTRY ORDERABL ES Performing Organization Address [facility] Co de Phone Number [facility] [place] [address] * Magnesium (06/28/2023 1:52 AM EDT) Magnesium 0.93 0.69 - 1.07 mmol/L [facility] Blood 06/28/2023 1:52 AM EDT 06/28/2023 2:05 AM EDT Narrative Resulting Agency Comment Spec In Lab Eufemia Copeland MD CHEMISTRY ORDERABL ES Performing Organization Address [facility] de Phone Number [facility] [place] [address] * (ABNORMAL) Basic Metabolic Panel (non-fasting) (06/27/2023 8:06 PM EDT) Glucose Lvl 94 65 - 199 mg/dL [facility] Comment:Diabetes: >=200 mg/d L plus symptoms BUN 24(H) 8 - 18 mg/dL [facility] Creatinine 1.28(H) 0.70 - 1.20 mg/dL [facility] Sodium 141 135 - 145 mmol/L [facility] Potassium 4.3 3.5 - 5.0 mmol/L [facility] Comment: Please note: ??Patients with WBC >100,000 may have falsely elevated Potassium levels. ??For accurate Potassium quantification in these patients send serum separator tube (gold top) for subsequent determinations. ??Contact the Clinical Chemistry Laboratory if there are any questions. Chloride 106 98 - 107 mmol/L [facility] CO2 24 22 - 31 mmol/L [facility] Anion Gap 11 5 - 15 mmol/L [facility] Calcium 9.3 8.5 - 10.5 mg/dL [facility] Estimated GFR 50(L) >=60 mL/min/1. 73 m?? [facility] Comment: This patient's estimated GFR was [...] and symptoms in addition to eGFR. Blood 06/27/2023 8:06 PM EDT 06/27/2023 8:09 PM EDT Narrative Resulting Agency Comment Spec In Lab Ailyn Irvin MD CHEMISTRY ORDERABLES Performing Organization Address City/[facility]/ZIP Co de Phone Number [facility] [place] [address] * (ABNORMAL) Hepatic Function Panel (06/27/2023 4:34 AM EDT) Total Protein 6.4 6.1 - 8.0 g/dL [facility] Albumin 3.8 3.2 - 5.2 g/dL [facility] AST 21 0 - 30 unit/L [facility] ALT 22 0 - 30 unit/L [facility] Alk Phos 56 35 - 105 unit/L [facility] Total Bilirubin <0.2(L) 0.2 - 1.3 mg/dL [facility] Bili, Direct <0.1 0.0 - 0.3 mg/dL [facility] Blood Venous Draw / Unknown 06/27/2023 4:34 AM EDT 06/27/2023 4:53 AM EDT Narrative Resulting Agency Comment Spec In Lab Ailyn Irvin MD CHEMISTRY ORDERABLES [facility] [place] [address] * Differential, Automated (06/27/2023 4:34 AM EDT) Neutrophils % 52.7 % [facility] Neutr Abs (ANC) 4.01 1.70 - 6.10 x10(3)/[facility] Lymphocytes % 33.8 % [facility] Lymphocytes Abs 2.6 0.9 - 3.2 x10(3)/[facility] Monocytes % 8.8 % [facility] Monocyte Abs 0.7 0.3 - 0.9 x10(3)/[facility] Eosinophils % 3.8 % [facility] Eosinophils Abs 0.3 0.0 - 0.4 x10(3)/[facility] Basophils % 0.5 % [facility] Basophils Abs 0.0 0.0 - 0.1 x10(3)/[facility] Immature Gran % 0.40 % [facility] Comment: Immature granulocytes(IG's)percentage and absolute count will include metamyelocytes, myelocytes, and promyelocytes. Blood smears from CBCs yielding IG's will be scanned manually for concordance. If this scan disagrees with the automated IG or if promyelocytes are noted, a manual differential will be performed. Shonda Gran Abs 0.03 0.00 - 0.04 x10(3)/[facility] Blood 06/27/2023 4:34 AM EDT 06/27/2023 4:51 AM EDT Narrative Resulting Agency Comment Spec In Lab Terrence Keating MD HEMATOLOGY ORDERABLE S [facility] [place] [address] * Hemogram (06/27/2023 4:34 AM EDT) WBC 7.6 4.0 - 9.5 x10(3)/[facility] RBC 4.15 4.00 - 5.21 x10(6)/[facility] Hemoglobin 12.9 11.7 - 15.5 g/dL [facility] Hematocrit 39.0 35.7 - 45.8 % [facility] MCV 94.0 82.6 - 94.4 [facility] MCH 31.1 27.1 - 32.0 pg [facility] MCHC 33.1 31.7 - 35.0 g/dL [facility] Platelets 245 145 - 357 x10(3)/[facility] RDWSD 45.2 37.0 - 46.0 [facility] RDWCV 13.2 11.5 - 14.1 % [facility] MPV 11.2 7.6 - 12.9 [facility] nRBC % Auto 0.0 % [facility] nRBC Abs Auto 0.000 0.000 - 0.000 x10(3)/[facility] Blood 06/27/2023 4:34 AM EDT 06/27/2023 4:51 AM EDT Narrative Resulting Agency Comment Spec In Lab Terrence Keating MD HEMATOLOGY ORDERABLE S [facility] [place] [address] * (ABNORMAL) Basic Metabolic Panel (non-fasting) (06/27/2023 4:34 AM EDT) Glucose Lvl 99 65 - 199 mg/dL [facility] Comment:Diabetes: >=200 mg/d L plus symptoms BUN 26(H) 8 - 18 mg/dL [facility] Creatinine 1.22(H) 0.70 - 1.20 mg/dL [facility] Sodium 138 135 - 145 mmol/L [facility] Potassium 3.9 3.5 - 5.0 mmol/L [facility] Comment: Please note: ??Patients with WBC >100,000 may have falsely elevated Potassium levels. ??For accurate Potassium quantification in these patients send serum separator tube (gold top) for subsequent determinations. ??Contact the Clinical Chemistry Laboratory if there are any questions. Chloride 105 98 - 107 mmol/L [facility] CO2 22 22 - 31 mmol/L [facility] Anion Gap 11 5 - 15 mmol/L [facility] Calcium 9.1 8.5 - 10.5 mg/dL [facility] Estimated GFR 53(L) >=60 mL/min/1. 73 m?? [facility] Comment: This patient's estimated GFR was [...] and symptoms in addition to eGFR. Blood 06/27/2023 4:34 AM EDT 06/27/2023 4:51 AM EDT Narrative Resulting Agency Comment Spec In Lab Eufemia Copeland MD CHEMISTRY ORDERABL ES [facility] [place] [address] * (ABNORMAL) Phosphorus (06/27/2023 4:34 AM EDT) Phosphorus 4.7(H) 2.5 - 4.5 mg/dL [facility] Blood 06/27/2023 4:34 AM EDT 06/27/2023 4:51 AM EDT Narrative Resulting Agency Comment Spec In Lab Eufemia Copeland MD CHEMISTRY ORDERABL ES Performing Organization Address City/[facility]/ZIP Co de Phone Number [facility] [place] [address] * Magnesium (06/27/2023 4:34 AM EDT) Pathologist [facility] Magnesium 0.90 0.69 - 1.07 mmol/L [facility] Blood 06/27/2023 4:34 AM EDT 06/27/2023 4:51 AM EDT Narrative Resulting Agency Comment Spec In Lab Eufemia Copeland MD CHEMISTRY ORDERABL ES Performing Organization Address [facility] Co de Phone Number [facility] [place] [address] * (ABNORMAL) Basic Metabolic Panel (non-fasting) (06/26/2023 4:58 PM EDT) [facility] Glucose Lvl 106 65 - 199 mg/dL [facility] Comment:Diabetes: >=200 mg/d L plus symptoms BUN 24(H) 8 - 18 mg/dL [facility] Creatinine 1.23(H) 0.70 - 1.20 mg/dL [facility] Sodium 138 135 - 145 mmol/L [facility] Potassium 4.2 3.5 - 5.0 mmol/L [facility] Comment: Please note: ??Patients with WBC >100,000 may have falsely elevated Potassium levels. ??For accurate Potassium quantification in these patients send serum separator tube (gold top) for subsequent determinations. ??Contact the Clinical Chemistry Laboratory if there are any questions. Chloride 104 98 - 107 mmol/L [facility] CO2 21(L) 22 - 31 mmol/L [facility] Anion Gap 13 5 - 15 mmol/L [facility] Calcium 9.1 8.5 - 10.5 mg/dL [facility] Estimated GFR 52(L) >=60 mL/min/1. 73 m?? [facility] Comment: This patient's estimated GFR was [...] and symptoms in addition to eGFR. Blood 06/26/2023 4:58 PM EDT 06/26/2023 5:02 PM EDT Narrative Resulting Agency Comment Spec In Lab Ailyn Irvin MD CHEMISTRY ORDERABLES Performing Organization Address City/[facility]/ZIP Co de Phone Number [facility] [place] [address] * Urinalysis Microscopic Exam (06/26/2023 11:09 AM EDT) RBC UA 0 0 - 4 /HPF [facility] WBC UA 3 0 - 5 /HPF [facility] Squam Epith UA 1 <=4 /HPF [facility] Hyaline Cast UA 1 0 - 2 /LPF [facility] Clean Catch Urine 06/26/2023 11:09 AM EDT 06/26/2023 5:45 PM EDT Narrative Resulting Agency Comment Spec In Lab Ailyn Irvin MD URINE ORDERABLES Performing Organization Address City/[facility]/ZIP Co de Phone Number [facility] [place] [address] * (ABNORMAL) Urinalysis with reflex Culture (06/26/2023 11:09 AM EDT) Glucose UA Negative Negative mg/dL [facility] Protein UA Negative Negative mg/dL [facility] Bilirubin UA Negative Negative mg/dL [facility] Comment: Clinical correlation required for positive Urine Bilirubin results as false positive may occur with some drugs and drug related products. If a false positive is suspected a serum total bilirubin should be considered if clinically indicated. Urobilinogen UA Normal Normal mg/dL [facility] pH UA 6.0 5.0 - 8.0 [facility] Blood UA Negative Negative mg/dL [facility] Ketones UA Negative Negative mg/dL [facility] Nitrite UA Negative Negative [facility] Leukocytes UA Trace(A) Negative [facility] Appearance UA Clear Clear [facility] Spec [place] UA 1.013 1.005 - 1.030 [facility] Color UA Yellow Yellow [facility] Culture Reflexed No [facility] Clean Catch Urine 06/26/2023 11:09 AM EDT 06/26/2023 5:45 PM EDT Narrative Resulting Agency Comment Spec In Lab Ailyn Irvin MD URINE ORDERABLES [facility] [place] [address] * EKG 12 Lead (06/26/2023 6:04 AM EDT) Ventricular rate 46 BPM MUSE SYSTEM Atrial Rate 46 BPM MUSE SYSTEM P-R Interval 204 ms MUSE SYSTEM QRS Duration 90 ms MUSE SYSTEM Q-T Interval 466 ms MUSE SYSTEM QTC Calculated (Bezet) 407 ms MUSE SYSTEM Calculated P [place] 38 degrees MUSE SYSTEM Calculated R [place] 48 degrees MUSE SYSTEM Calculated T [place] 13 degrees MUSE SYSTEM INTERPRETATION Sinus bradycardia Nonspecific ST and T wave abnormality Abnormal ECG When compared with ECG of 23-JUN-2023 09:54, No significant change was found Confirmed by MD Dalia, Willy Huerta ([id number]) on 06/29/2023 6:09:20 AM MUSE SYSTEM 06/26/2023 6:04 AM EDT 06/29/2023 6:09 AM EDT Eufemia Copeland MD ECG ORDERABLES MUSE SYSTEM * Differential, Automated (06/26/2023 4:06 AM EDT) Neutrophils % 55.3 % [facility] Neutr Abs (ANC) 4.63 1.70 - 6.10 x10(3)/[facility] Lymphocytes % 32.6 % [facility] Lymphocytes Abs 2.7 0.9 - 3.2 x10(3)/[facility] Monocytes % 8.2 % [facility] Monocyte Abs 0.7 0.3 - 0.9 x10(3)/[facility] Eosinophils % 3.2 % [facility] Eosinophils Abs 0.3 0.0 - 0.4 x10(3)/[facility] Basophils % 0.5 % [facility] Basophils Abs 0.0 0.0 - 0.1 x10(3)/[facility] Immature Gran % 0.20 % [facility] Comment: Immature granulocytes(IG's)percentage and absolute count will include metamyelocytes, myelocytes, and promyelocytes. Blood smears from CBCs yielding IG's will be scanned manually for concordance. If this scan disagrees with the automated IG or if promyelocytes are noted, a manual differential will be performed. Shonda Gran Abs 0.02 0.00 - 0.04 x10(3)/[facility] Blood 06/26/2023 4:06 AM EDT 06/26/2023 4:18 AM EDT Narrative Resulting Agency Comment Spec In Lab Terrence Keating MD HEMATOLOGY ORDERABLE S [facility] [place] [address] * (ABNORMAL) Hemogram (06/26/2023 4:06 AM EDT) WBC 8.4 4.0 - 9.5 x10(3)/[facility] RBC 4.52 4.00 - 5.21 x10(6)/[facility] Hemoglobin 14.0 11.7 - 15.5 g/dL [facility] Hematocrit 43.6 35.7 - 45.8 % [facility] MCV 96.5(H) 82.6 - 94.4 [facility] MCH 31.0 27.1 - 32.0 pg [facility] MCHC 32.1 31.7 - 35.0 g/dL [facility] Platelets 258 145 - 357 x10(3)/[facility] RDWSD 46.7(H) 37.0 - 46.0 [facility] RDWCV 13.2 11.5 - 14.1 % [facility] MPV 11.1 7.6 - 12.9 [facility] nRBC % Auto 0.0 % [facility] nRBC Abs Auto 0.000 0.000 - 0.000 x10(3)/[facility] Blood 06/26/2023 4:06 AM EDT 06/26/2023 4:18 AM EDT Narrative Resulting Agency Comment Spec In Lab Terrence Keating MD HEMATOLOGY ORDERABLE S [facility] [place] [address] * (ABNORMAL) Basic Metabolic Panel (non-fasting) (06/26/2023 4:06 AM EDT) [facility] Glucose Lvl 100 65 - 199 mg/dL [facility] Comment:Diabetes: >=200 mg/d L plus symptoms BUN 25(H) 8 - 18 mg/dL [facility] Creatinine 1.24(H) 0.70 - 1.20 mg/dL [facility] Sodium 135 135 - 145 mmol/L [facility] Potassium 4.2 3.5 - 5.0 mmol/L [facility] Comment: Please note: ??Patients with WBC >100,000 may have falsely elevated Potassium levels. ??For accurate Potassium quantification in these patients send serum separator tube (gold top) for subsequent determinations. ??Contact the Clinical Chemistry Laboratory if there are any questions. Chloride 104 98 - 107 mmol/L [facility] CO2 19(L) 22 - 31 mmol/L [facility] Anion Gap 12 5 - 15 mmol/L [facility] Calcium 9.6 8.5 - 10.5 mg/dL [facility] Estimated GFR 52(L) >=60 mL/min/1. 73 m?? [facility] Comment: This patient's estimated GFR was [...] and symptoms in addition to eGFR. Blood 06/26/2023 4:06 AM EDT 06/26/2023 4:18 AM EDT Narrative Resulting Agency Comment Spec In Lab Eufemia Copeland MD CHEMISTRY ORDERABL ES [facility] [place] [address] * Phosphorus (06/26/2023 4:06 AM EDT) Phosphorus 4.3 2.5 - 4.5 mg/dL [facility] Blood 06/26/2023 4:06 AM EDT 06/26/2023 4:18 AM EDT Narrative Resulting Agency Comment Spec In Lab Eufemia Copeland MD CHEMISTRY ORDERABL ES Performing Organization Address City/[facility]/ZIP Co de Phone Number [facility] [place] [address] * Magnesium (06/26/2023 4:06 AM EDT) Magnesium 0.96 0.69 - 1.07 mmol/L [facility] Blood 06/26/2023 4:06 AM EDT 06/26/2023 4:18 AM EDT Narrative Resulting Agency Comment Spec In Lab Eufemia Copeland MD CHEMISTRY ORDERABL ES Performing Organization Address [facility] Co de Phone Number [facility] [place] [address] * Differential, Automated (06/25/2023 1:50 AM EDT) [facility] Neutrophils % 56.2 % [facility] Neutr Abs (ANC) 4.06 1.70 - 6.10 x10(3)/[facility] Lymphocytes % 30.5 % [facility] Lymphocytes Abs 2.2 0.9 - 3.2 x10(3)/[facility] Monocytes % 8.7 % [facility] Monocyte Abs 0.6 0.3 - 0.9 x10(3)/[facility] Eosinophils % 3.9 % [facility] Eosinophils Abs 0.3 0.0 - 0.4 x10(3)/[facility] Basophils % 0.6 % [facility] Basophils Abs 0.0 0.0 - 0.1 x10(3)/[facility] Immature Gran % 0.10 % [facility] Comment: Immature granulocytes(IG's)percentage and absolute count will include metamyelocytes, myelocytes, and promyelocytes. Blood smears from CBCs yielding IG's will be scanned manually for concordance. If this scan disagrees with the automated IG or if promyelocytes are noted, a manual differential will be performed. Shonda Gran Abs 0.01 0.00 - 0.04 x10(3)/[facility] Blood 06/25/2023 1:50 AM EDT 06/25/2023 2:16 AM EDT Narrative Resulting Agency Comment Spec In Lab Terrence Keating MD HEMATOLOGY ORDERABLE S [facility] [place] [address] * Hemogram (06/25/2023 1:50 AM EDT) WBC 7.2 4.0 - 9.5 x10(3)/[facility] LABORATORY RBC 4.57 4.00 - 5.21 x10(6)/[facility] LABORATORY Hemoglobin 14.4 11.7 - 15.5 g/dL [facility] Hematocrit 42.9 35.7 - 45.8 % [facility] MCV 93.9 82.6 - 94.4 fL [facility] MCH 31.5 27.1 - 32.0 pg [facility] MCHC 33.6 31.7 - 35.0 g/dL [facility] Platelets 241 145 - 357 x10(3)/[facility] LABORATORY RDWSD 44.7 37.0 - 46.0 [facility] LABORATORY RDWCV 13.2 11.5 - 14.1 % [facility] MPV 11.5 7.6 - 12.9 fL [facility] nRBC % Auto 0.0 % [facility]OR[facility] nRBC Abs Auto 0.000 0.000 - 0.000 x10(3)/[facility] LABORATORY Blood 06/25/2023 1:50 AM EDT 06/25/2023 2:16 AM EDT Narrative Resulting Agency Comment Spec In Lab Terrence Keating MD HEMATOLOGY ORDERABLE S [facility] [place] [address] * (ABNORMAL) Basic Metabolic Panel (non-fasting) (06/25/2023 1:50 AM EDT) Glucose Lvl 99 65 - 199 mg/dL [facility] Comment:Diabetes: >=200 mg/d L plus symptoms BUN 20(H) 8 - 18 mg/dL [facility] Creatinine 1.59(H) 0.70 - 1.20 mg/dL [facility] Sodium 139 135 - 145 mmol/L [facility] Potassium 3.4(L) 3.5 - 5.0 mmol/L [facility] Comment: Please note: ??Patients with WBC >100,000 may have falsely elevated Potassium levels. ??For accurate Potassium quantification in these patients send serum separator tube (gold top) for subsequent determinations. ??Contact the Clinical Chemistry Laboratory if there are any questions. Chloride 102 98 - 107 mmol/L [facility] CO2 25 22 - 31 mmol/L [facility] Anion Gap 12 5 - 15 mmol/L [facility] Calcium 9.4 8.5 - 10.5 mg/dL [facility] Estimated GFR 38(L) >=60 mL/min/1. 73 m?? [facility] Comment: This patient's estimated GFR was [...] and symptoms in addition to eGFR. Blood 06/25/2023 1:50 AM EDT 06/25/2023 2:16 AM EDT Narrative Resulting Agency Comment Spec In Lab Eufemia Copeland MD CHEMISTRY ORDERABL ES Performing Organization Address [facility] Co de Phone Number [facility] [place] [address] * Phosphorus (06/25/2023 1:50 AM EDT) Phosphorus 4.4 2.5 - 4.5 mg/dL [facility] Blood 06/25/2023 1:50 AM EDT 06/25/2023 2:16 AM EDT Narrative Resulting Agency Comment Spec In Lab Eufemia Copeland MD CHEMISTRY ORDERABL ES Performing Organization Address [facility] de Phone Number [facility] [place] [address] * Magnesium (06/25/2023 1:50 AM EDT) Magnesium 0.99 0.69 - 1.07 mmol/L [facility] Blood 06/25/2023 1:50 AM EDT 06/25/2023 2:16 AM EDT Narrative Resulting Agency Comment Spec In Lab Eufemia Copeland MD CHEMISTRY ORDERABL ES Performing Organization Address [facility] de Phone Number [facility] [place] [address] * (ABNORMAL) pro-Brain Natriuretic Peptide (06/24/2023 3:38 AM EDT) ProBNP 1,239(H) <=124 pg/mL [facility] Blood Venous Draw / Unknown 06/24/2023 3:38 AM EDT 06/24/2023 3:49 AM EDT Narrative Resulting Agency Comment Spec In Lab Ailyn Irvin MD CHEMISTRY ORDERABLES Performing Organization Address City/[facility]/ZIP Co de Phone Number [facility] [place] [address] * Differential, Automated (06/24/2023 3:38 AM EDT) Pathologist [facility] Neutrophils % 51.6 % [facility] Neutr Abs (ANC) 3.54 1.70 - 6.10 x10(3)/[facility] LABORATORY Lymphocytes % 36.0 % [facility] Lymphocytes Abs 2.5 0.9 - 3.2 x10(3)/[facility] LABORATORY Monocytes % 7.8 % [facility] Monocyte Abs 0.5 0.3 - 0.9 x10(3)/[facility] LABORATORY Eosinophils % 3.6 % [facility] Eosinophils Abs 0.2 0.0 - 0.4 x10(3)/[facility] LABORATORY Basophils % 0.7 % [facility] Basophils Abs 0.0 0.0 - 0.1 x10(3)/[facility] LABORATORY Immature Gran % 0.30 % [facility] Comment: Immature granulocytes(IG's)percentage and absolute count will include metamyelocytes, myelocytes, and promyelocytes. Blood smears from CBCs yielding IG's will be scanned manually for concordance. If this scan disagrees with the automated IG or if promyelocytes are noted, a manual differential will be performed. Shonda Gran Abs 0.02 0.00 - 0.04 x10(3)/[facility] LABORATORY Blood 06/24/2023 3:38 AM EDT 06/24/2023 3:49 AM EDT Narrative Resulting Agency Comment Spec In Lab Terrence Keating MD HEMATOLOGY ORDERABLE S Performing Organization Address City/[facility]/ZIP Co de Phone Number [facility] [place] [address] * Hemogram (06/24/2023 3:38 AM EDT) Pathologist [facility] WBC 6.9 4.0 - 9.5 x10(3)/[facility] LABORATORY RBC 4.36 4.00 - 5.21 x10(6)/[facility] LABORATORY Hemoglobin 13.6 11.7 - 15.5 g/dL [facility] Hematocrit 40.7 35.7 - 45.8 % [facility] MCV 93.3 82.6 - 94.4 fL [facility] MCH 31.2 27.1 - 32.0 pg [facility] MCHC 33.4 31.7 - 35.0 g/dL [facility] Platelets 220 145 - 357 x10(3)/[facility] RDWSD 44.5 37.0 - 46.0 [facility] LABORATORY RDWCV 13.0 11.5 - 14.1 % [facility]ORATORY MPV 10.8 7.6 - 12.9 [facility] LABORATORY nRBC % Auto 0.0 % [facility]OR[facility] nRBC Abs Auto 0.000 0.000 - 0.000 x10(3)/[facility] LABORATORY Blood 06/24/2023 3:38 AM EDT 06/24/2023 3:49 AM EDT Narrative Resulting Agency Comment Spec In Lab Terrence Keating MD HEMATOLOGY ORDERABLE S Performing Organization Address City/State/[facility] Co de Phone Number [facility] [place] [address] * Heparin (unfractionated) Level (06/24/2023 3:38 AM EDT) Heparin UFH Level 0.44 IU/mL [facility] Comment: Heparin (anti-Xa) levels should be [...] cardiac surgery): 0.1 ? 0.3 IU/mL Blood 06/24/2023 3:38 AM EDT 06/24/2023 3:49 AM EDT Narrative Resulting Agency Comment Spec In Lab Terrence Keating MD HEMATOLOGY ORDERABLE S [facility] [place] [address] * (ABNORMAL) Basic Metabolic Panel (non-fasting) (06/24/2023 3:38 AM EDT) Glucose Lvl 96 65 - 199 mg/dL [facility] Comment:Diabetes: >=200 mg/d L plus symptoms BUN 20(H) 8 - 18 mg/dL [facility] Creatinine 1.14 0.70 - 1.20 mg/dL [facility] Sodium 138 135 - 145 mmol/L [facility] Potassium 4.2 3.5 - 5.0 mmol/L [facility] Comment: Please note: ??Patients with WBC >100,000 may have falsely elevated Potassium levels. ??For accurate Potassium quantification in these patients send serum separator tube (gold top) for subsequent determinations. ??Contact the Clinical Chemistry Laboratory if there are any questions. Chloride 104 98 - 107 mmol/L [facility] CO2 21(L) 22 - 31 mmol/L [facility] Anion Gap 13 5 - 15 mmol/L [facility] Calcium 9.1 8.5 - 10.5 mg/dL [facility] Estimated GFR 57(L) >=60 mL/min/1. 73 m?? [facility] Comment: This patient's estimated GFR was [...] and symptoms in addition to eGFR. Blood 06/24/2023 3:38 AM EDT 06/24/2023 3:49 AM EDT Narrative Resulting Agency Comment Spec In Lab Eufemia Copeland MD CHEMISTRY ORDERABL ES Performing Organization Address [facility] Co de Phone Number [facility] [place] [address] * Phosphorus (06/24/2023 3:38 AM EDT) Phosphorus 4.1 2.5 - 4.5 mg/dL [facility] Blood 06/24/2023 3:38 AM EDT 06/24/2023 3:49 AM EDT Narrative Resulting Agency Comment Spec In Lab Eufemia Copeland MD CHEMISTRY ORDERABL ES Performing Organization Address [facility] Co de Phone Number [facility] [place] [address] * Magnesium (06/24/2023 3:38 AM EDT) Magnesium 0.96 0.69 - 1.07 mmol/L [facility] Blood 06/24/2023 3:38 AM EDT 06/24/2023 3:49 AM EDT Narrative Resulting Agency Comment Spec In Lab Eufemia Copeland MD CHEMISTRY ORDERABL ES Performing Organization Address [facility] Co de Phone Number [facility] [place] [address] * Heparin (unfractionated) Level (06/23/2023 9:24 PM EDT) Pathologist [facility] Heparin UFH Level 0.51 IU/mL [facility] Comment: Heparin (anti-Xa) levels should be [...] cardiac surgery): 0.1 ? 0.3 IU/mL Blood 06/23/2023 9:24 PM EDT 06/23/2023 9:30 PM EDT Narrative Resulting Agency Comment Spec In Lab Terrence Keating MD HEMATOLOGY ORDERABLE S Performing Organization Address City/State/[facility] Co de Phone Number [facility] [place] [address] * Duplex Study Visceral Arteries, Comp (06/23/2023 3:36 PM EDT) [facility] VB Text Report Department: Vascular Surgery Lab Patient: [id number] (LOIDA ROQUE) CPT: 16353 Referring Physician: AILYN IRVIN ?? Phone: Indications: SMA stenosis on CT Findings: Unilateral ? PSV cm/s ??EDV cm/s ??Patent ?? Dary Renal Aorta ?117 ?19 ? Celiac Artery, Proximal ?No Vis ?? Celiac Artery, Mid ? No Vis ?? Celiac Artery, Distal ?No Vis ?? Sup Mes Artery Proximal ?No Vis ?? Sup Mes Artery Middle ?No Vis ?? Sup Mes Artery Distal ?No Vis ?? Hepatic Artery ? No Vis ?? Splenic Artery ? No Vis ?? Inf Mes Artery ? No Vis ?? Interpretation : Exam limited by bowel gas and body habitus. Celiac, superior mesenteric, common hepatic, splenic, and inferior mesenteric arteries not visualized. Comparison: ??No previous study in our vascular lab database for comparison. Electronically Signed by: RAJ RAMSEY on 2023-06-23 07:53:56 AM [facility] VB Text Report End of Report [facility] 06/23/2023 3:36 PM EDT Ailyn Irvin MD VASCULAR ORDERABLES [facility] * Heparin (unfractionated) Level (06/23/2023 3:01 PM EDT) Heparin UFH Level 0.90 IU/mL [facility] Comment: Heparin (anti-Xa) levels should be [...] cardiac surgery): 0.1 ? 0.3 IU/mL Blood 06/23/2023 3:01 PM EDT 06/23/2023 3:10 PM EDT Narrative Resulting Agency Comment Spec In Lab Terrence Keating MD HEMATOLOGY ORDERABLE S [facility]ORAT[facility] [place] [id number] * EKG 12 Lead (06/23/2023 9:54 AM EDT) Ventricular rate 48 BPM MUSE SYSTEM Atrial Rate 48 BPM MUSE SYSTEM P-R Interval 192 ms MUSE SYSTEM QRS Duration 92 ms MUSE SYSTEM Q-T Interval 462 ms MUSE SYSTEM QTC Calculated (Bezet) 412 ms MUSE SYSTEM Calculated P [place] 21 degrees MUSE SYSTEM Calculated R [place] 20 degrees MUSE SYSTEM Calculated T [place] 16 degrees MUSE SYSTEM INTERPRETATION Sinus bradycardia Nonspecific ST and T wave abnormality Abnormal ECG When compared with ECG of 22-JUN-2023 11:13, Criteria for Septal infarct are no longer Present No significant change was found Confirmed by MD [place], Gus ([id number]) on 06/23/2023 12:59:50 PM MUSE SYSTEM 06/23/2023 9:54 AM EDT 06/23/2023 12:59 PM EDT Ailyn Irvin MD ECG ORDERABLES MUSE SYSTEM * Differential, Automated (06/23/2023 4:12 AM EDT) Neutrophils % 52.8 % [facility] Neutr Abs (ANC) 4.30 1.70 - 6.10 x10(3)/[facility] LABORATORY Lymphocytes % 33.9 % [facility] Lymphocytes Abs 2.8 0.9 - 3.2 x10(3)/[facility] LABORATORY Monocytes % 8.3 % [facility] Monocyte Abs 0.7 0.3 - 0.9 x10(3)/[facility] LABORATORY Eosinophils % 3.9 % [facility] Eosinophils Abs 0.3 0.0 - 0.4 x10(3)/[facility] LABORATORY Basophils % 0.7 % [facility] Basophils Abs 0.1 0.0 - 0.1 x10(3)/[facility] Immature Gran % 0.40 % [facility] Comment: Immature granulocytes(IG's)percentage and absolute count will include metamyelocytes, myelocytes, and promyelocytes. Blood smears from CBCs yielding IG's will be scanned manually for concordance. If this scan disagrees with the automated IG or if promyelocytes are noted, a manual differential will be performed. Shonda Gran Abs 0.03 0.00 - 0.04 x10(3)/[facility] LABORATORY Blood 06/23/2023 4:12 AM EDT 06/23/2023 4:38 AM EDT Narrative Resulting Agency Comment Spec In Lab Terrence Keating MD HEMATOLOGY ORDERABLE S [facility] [place] [address] * Hemogram (06/23/2023 4:12 AM EDT) WBC 8.2 4.0 - 9.5 x10(3)/[facility] LABORATORY RBC 4.59 4.00 - 5.21 x10(6)/[facility] LABORATORY Hemoglobin 14.3 11.7 - 15.5 g/dL [facility] Hematocrit 43.1 35.7 - 45.8 % [facility] MCV 93.9 82.6 - 94.4 fL [facility] MCH 31.2 27.1 - 32.0 pg [facility] MCHC 33.2 31.7 - 35.0 g/dL [facility] Platelets 233 145 - 357 x10(3)/[facility] LABORATORY RDWSD 44.2 37.0 - 46.0 fL [facility] RDWCV 13.0 11.5 - 14.1 % [facility] MPV 11.3 7.6 - 12.9 fL [facility] nRBC % Auto 0.0 % [facility] nRBC Abs Auto 0.000 0.000 - 0.000 x10(3)/[facility] LABORATORY Blood 06/23/2023 4:12 AM EDT 06/23/2023 4:38 AM EDT Narrative Resulting Agency Comment Spec In Lab Terrence Keating MD HEMATOLOGY ORDERABLE S [facility] [place] [id number] * (ABNORMAL) Heparin (unfractionated) Level (06/23/2023 4:12 AM EDT) Heparin UFH Level 1.95(Crit ical) IU/mL [facility] Comment: Critical Result called by ?Peter CASTILLO CRITICAL Results read back by: ? Rosa Mahajan at 2023-06-23 05:14:07 Heparin (anti-Xa) levels should be determined in [...] cardiac surgery): 0.1 ? 0.3 IU/mL Blood 06/23/2023 4:12 AM EDT 06/23/2023 4:38 AM EDT Narrative Resulting Agency Comment Spec In Lab Terrence Keating MD HEMATOLOGY ORDERABLE S [facility] [place] [address] * (ABNORMAL) Basic Metabolic Panel (non-fasting) (06/23/2023 4:12 AM EDT) Glucose Lvl 87 65 - 199 mg/dL [facility] Comment:Diabetes: >=200 mg/d L plus symptoms BUN 23(H) 8 - 18 mg/dL [facility] Creatinine 1.08 0.70 - 1.20 mg/dL [facility] Sodium 137 135 - 145 mmol/L [facility] Potassium 3.8 3.5 - 5.0 mmol/L [facility] Comment: Please note: ??Patients with WBC >100,000 may have falsely elevated Potassium levels. ??For accurate Potassium quantification in these patients send serum separator tube (gold top) for subsequent determinations. ??Contact the Clinical Chemistry Laboratory if there are any questions. Chloride 103 98 - 107 mmol/L [facility] CO2 22 22 - 31 mmol/L [facility] Anion Gap 12 5 - 15 mmol/L [facility] Calcium 9.3 8.5 - 10.5 mg/dL [facility] Estimated GFR 61 >=60 mL/min/1. 73 m?? [facility] Comment: This patient's estimated GFR was [...] and symptoms in addition to eGFR. Blood 06/23/2023 4:12 AM EDT 06/23/2023 4:38 AM EDT Narrative Resulting Agency Comment Spec In Lab Eufemia Copeland MD CHEMISTRY ORDERABL ES Performing Organization Address [facility] de Phone Number [facility] [place] [address] * Phosphorus (06/23/2023 4:12 AM EDT) Phosphorus 4.5 2.5 - 4.5 mg/dL [facility] Blood 06/23/2023 4:12 AM EDT 06/23/2023 4:38 AM EDT Narrative Resulting Agency Comment Spec In Lab Eufemia Copeland MD CHEMISTRY ORDERABL ES Performing Organization Address [facility] de Phone Number [facility] [place] [address] * Magnesium (06/23/2023 4:12 AM EDT) Magnesium 1.03 0.69 - 1.07 mmol/L [facility] Blood 06/23/2023 4:12 AM EDT 06/23/2023 4:38 AM EDT Narrative Resulting Agency Comment Spec In Lab Eufemia Copeland MD CHEMISTRY ORDERABL ES Performing Organization Address [facility] de Phone Number [facility] [place] [address] * ECHO LMTD W CONTRAST W LMTD SPEC DOPP COLOR DOPP (06/22/2023 4:25 PM EDT) Anatomical Region Laterality Modality Cardiac Other 06/22/2023 2:49 PM EDT Narrative 06/22/2023 4:42 PM EDT [address] [place] [address] ? Echocardiogram Report Name: LOIDA ROQUE ?Study Date: 06/22/2023 02:49 PM ?Patient Location: [place] [id number] A ??HR: 57 : 1970 ?Height: 162 cm ? Account: [id number] Age: 53 yrs ?Weight: 102 kg Gender: Female ? BSA: 2.1 m2 Ordering Physician: AILYN IRVIN Referring Physician: AJ IYER History: Chest pain Interpreting Fellow: Rogers Bradford. Interpretation Summary Normal left ventricle size with mildly reduced LV systolic function. Mild global hypokinesis. LV ejection fraction is approximately 50%. Normal right ventricle. No significant valvular abnormalities. On comparison to the prior echo dated 04/17/2023, there has been a slight decrease in LV systolic function. Procedure Complete-[id number]. Satisfactory quality. There is normal sinus rhythm. [...] Note Jose Gallegos MD - 06/22/2023 [address] [place] [address] Echocardiogram Report Name: LOIDA ROQUE Study Date: 06/22/2023 02:49 PM Patient Location: [place] [address] A HR:57 : 1970 Height: 162 cmAccount: [id number] Age: 53 yrs Weight: 102 kg Gender: Female BSA: 2.1 m2 Ordering Physician: AILYN IRVIN Referring Physician: AJ IYER History: Chest pain Interpreting Fellow: Rogers Bradford. Interpretation Summary Normal left ventricle size with mildly reduced LV systolic function. Mildglobal hypokinesis. LV ejection fraction is approximately 50%. Normal right ventricle. No significant valvular abnormalities. On comparison to the prior echo dated 04/17/2023, there has been a slightdecrease in LV systolic function. Procedure Complete-[id number]. Satisfactory quality. There is normal sinus rhythm. [...] 3-5moderate 5 - 6-14large Aneurysmal 15-16diffuse Ailyn Irvin MD ECHO ORDERABLES * (ABNORMAL) Troponin (06/22/2023 2:38 PM EDT) Troponin-T HS 22(H) <=14 ng/L [facility] Comment: This patient's troponin T [...] troponin value can be found in the [facility] Test Catalog Troponin - [facility] Test Catalog Reference: Fourth [place] Definition of Myocardial Infarction. Journal of the [place] [employer] 2018;72:6644-1625 Blood 06/22/2023 2:38 PM EDT 06/22/2023 2:50 PM EDT Narrative Resulting Agency Comment Spec In Lab Ailyn Irvin MD CHEMISTRY ORDERABLES Performing Organization Address City/[facility] Co de Phone Number [facility] [place] [address] * Duplex for DVT, Arm, Unilat (06/22/2023 2:24 PM EDT) VB Text Report Department: Vascular Surgery Lab Patient: [id number] (LOIDA ROQUE) CPT: 13269 Referring Physician: AILYN IRVIN ?? Phone: Indications: RIGHT UE swelling Findings: [...] database for comparison. Electronically Signed by: CARLOTA KAMARA MD on 2023-06-22 10:49:30 PM [facility] VB Text Report End of Report [facility] 06/22/2023 2:24 PM EDT Ailyn Irvin MD VASCULAR ORDERABLES Performing Organization Address [facility] Co de Phone Number [email or web address] * XR Chest One View (06/22/2023 11:42 AM EDT) Anatomical Region Laterality Modality Chest N/A Digital Radiogra phy Impressions 06/22/2023 11:47 AM EDT No acute pulmonary findings Thank you for letting us participate in the care of this patient. ??If you are a health care provider and have any questions regarding this report, please contact the number below. ??For patients who have questions please contact the health professional healthcare representative that requested 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 ? Electronically signed by: Itz Hayward MD, [facility] ??([phone]), at 06/22/2023 11:47 AM Narrative 06/22/2023 11:47 AM EDT EXAMINATION: XR CHEST ONE VIEW CLINICAL HISTORY: Severe chest pain with shortness of breath TECHNIQUE: 1 view of the chest COMPARISON: 09/28/2022 FINDINGS: The cardiomediastinal silhouette is stable Decreased lung volumes. The lungs are clear. No pleural effusion or pneumothorax Procedure Note Itz Hayward MD - 06/22/2023 EXAMINATION: XR CHEST ONE VIEW CLINICAL HISTORY: Severe chest pain with shortness of breath TECHNIQUE: 1 view of the chest COMPARISON: 09/28/2022 FINDINGS: The cardiomediastinal silhouette is stable Decreased lung volumes. The lungs are clear. No pleural effusion orpneumothorax IMPRESSION No acute pulmonary findings Thank you for letting us participate in the care of this patient. If youare a health care provider and have any questions regarding this report,please contact the number below. For patients who have questions please contactthe health professional healthcare representative that requested 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 Electronically signed by: Itz Hayward MD, [facility]([phone]), at 06/22/2023 11:47 AM Ailyn Irvin MD IMG DX ORDERABLES * (ABNORMAL) Troponin (06/22/2023 11:24 AM EDT) [facility] Signature Troponin-T HS 22(H) <=14 ng/L [facility] Comment: This patient's troponin T [...] troponin value can be found in the [facility] Test Catalog Troponin - [facility] Test Catalog Reference: Fourth [place] Definition of Myocardial Infarction. Journal of the [place] [employer] 2018;72:7588-4921 Blood 06/22/2023 11:2 4 AM EDT 06/22/2023 11:44 AM EDT Narrative Resulting Agency Comment Spec In Lab Ailyn Irvin MD CHEMISTRY ORDERABLES [facility] [place] [id number] * EKG 12 Lead (06/22/2023 11:13 AM EDT) Ventricular rate 63 BPM MUSE SYSTEM Atrial Rate 63 BPM MUSE SYSTEM P-R Interval 162 ms MUSE SYSTEM QRS Duration 86 ms MUSE SYSTEM Q-T Interval 382 ms MUSE SYSTEM QTC Calculated (Bezet) 390 ms MUSE SYSTEM Calculated P [place] 24 degrees MUSE SYSTEM Calculated R [place] 32 degrees MUSE SYSTEM Calculated T [place] -2 degrees MUSE SYSTEM INTERPRETATION Normal sinus rhythm Septal infarct (cited on or before 22-JUN-2023) Possible Lateral infarct , age undetermined ST & T wave abnormality, consider inferolateral ischemia Abnormal ECG When compared with ECG of 22-JUN-2023 10:55, No significant change was found Confirmed by MD Angelo Danette ([id number]) on 06/22/2023 3:56:31 PM MUSE SYSTEM 06/22/2023 11:1 3 AM EDT 06/22/2023 3:56 PM EDT Ailyn Irvin MD ECG ORDERABLES MUSE SYSTEM * EKG 12 Lead (06/22/2023 10:55 AM EDT) Ventricular rate 56 BPM MUSE SYSTEM Atrial Rate 56 BPM MUSE SYSTEM P-R Interval 168 ms MUSE SYSTEM QRS Duration 88 ms MUSE SYSTEM Q-T Interval 426 ms MUSE SYSTEM QTC Calculated (Bezet) 411 ms MUSE SYSTEM Calculated P [place] 22 degrees MUSE SYSTEM Calculated R [place] 20 degrees MUSE SYSTEM Calculated T [place] 10 degrees MUSE SYSTEM INTERPRETATION Sinus bradycardia Septal infarct , age undetermined ST & T wave abnormality, consider inferolateral ischemia Abnormal ECG When compared with ECG of 21-JUN-2023 10:06, Septal infarct is now Present Confirmed by MD Petey, Kia ([id number]) on 06/22/2023 3:55:53 PM MUSE SYSTEM 06/22/2023 10:5 5 AM EDT 06/22/2023 3:55 PM EDT Ailyn Irvin MD ECG ORDERABLES Performing Organization Address City/[facility] Co de Phone Number MUSE SYSTEM * Differential, Automated (06/22/2023 4:34 AM EDT) Neutrophils % 54.4 % [facility] Neutr Abs (ANC) 4.07 1.70 - 6.10 x10(3)/[facility] Lymphocytes % 30.6 % [facility] Lymphocytes Abs 2.3 0.9 - 3.2 x10(3)/[facility] Monocytes % 9.9 % [facility] Monocyte Abs 0.7 0.3 - 0.9 x10(3)/[facility] Eosinophils % 4.3 % [facility] Eosinophils Abs 0.3 0.0 - 0.4 x10(3)/[facility] Basophils % 0.7 % [facility] Basophils Abs 0.0 0.0 - 0.1 x10(3)/[facility] Immature Gran % 0.10 % [facility] Comment: Immature granulocytes(IG's)percentage and absolute count will include metamyelocytes, myelocytes, and promyelocytes. Blood smears from CBCs yielding IG's will be scanned manually for concordance. If this scan disagrees with the automated IG or if promyelocytes are noted, a manual differential will be performed. Shonda Gran Abs 0.01 0.00 - 0.04 x10(3)/[facility] Blood 06/22/2023 4:34 AM EDT 06/22/2023 4:42 AM EDT Narrative Resulting Agency Comment Spec In Lab Terrence Keating MD HEMATOLOGY ORDERABLE S [facility] [place] [address] * (ABNORMAL) Hemogram (06/22/2023 4:34 AM EDT) WBC 7.5 4.0 - 9.5 x10(3)/[facility] RBC 4.04 4.00 - 5.21 x10(6)/[facility] Hemoglobin 12.8 11.7 - 15.5 g/dL [facility] Hematocrit 39.1 35.7 - 45.8 % [facility] MCV 96.8(H) 82.6 - 94.4 fL [facility] MCH 31.7 27.1 - 32.0 pg [facility] MCHC 32.7 31.7 - 35.0 g/dL [facility] Platelets 225 145 - 357 x10(3)/[facility] RDWSD 45.9 37.0 - 46.0 [facility] RDWCV 13.0 11.5 - 14.1 % [facility] MPV 10.6 7.6 - 12.9 [facility] LABORATORY nRBC % Auto 0.0 % [facility] nRBC Abs Auto 0.000 0.000 - 0.000 x10(3)/mcL [facility] Blood 06/22/2023 4:34 AM EDT 06/22/2023 4:42 AM EDT Narrative Resulting Agency Comment Spec In Lab Terrence Keating MD HEMATOLOGY ORDERABLE S [facility] [place] [address] * (ABNORMAL) Basic Metabolic Panel (non-fasting) (06/22/2023 4:34 AM EDT) Glucose Lvl 94 65 - 199 mg/dL [facility] Comment:Diabetes: >=200 mg/d L plus symptoms BUN 22(H) 8 - 18 mg/dL [facility] Creatinine 1.19 0.70 - 1.20 mg/dL [facility] Sodium 138 135 - 145 mmol/L [facility] Potassium 3.9 3.5 - 5.0 mmol/L [facility] Comment: Please note: ??Patients with WBC >100,000 may have falsely elevated Potassium levels. ??For accurate Potassium quantification in these patients send serum separator tube (gold top) for subsequent determinations. ??Contact the Clinical Chemistry Laboratory if there are any questions. Chloride 102 98 - 107 mmol/L [facility] CO2 19(L) 22 - 31 mmol/L [facility] Anion Gap 17(H) 5 - 15 mmol/L [facility] Calcium 9.4 8.5 - 10.5 mg/dL [facility] Estimated GFR 54(L) >=60 mL/min/1. 73 m?? [facility] Comment: This patient's estimated GFR was [...] and symptoms in addition to eGFR. Blood 06/22/2023 4:34 AM EDT 06/22/2023 4:42 AM EDT Narrative Resulting Agency Comment Spec In Lab Eufemia Copeland MD CHEMISTRY ORDERABL ES Performing Organization Address City/[facility]/ZIP Co de Phone Number [facility] [place] [address] * (ABNORMAL) Phosphorus (06/22/2023 4:34 AM EDT) Phosphorus 4.9(H) 2.5 - 4.5 mg/dL [facility] Blood 06/22/2023 4:34 AM EDT 06/22/2023 4:42 AM EDT Narrative Resulting Agency Comment Spec In Lab Eufemia Copeland MD CHEMISTRY ORDERABL ES Performing Organization Address [facility]/ZIP Co de Phone Number [facility] [place] [address] * Magnesium (06/22/2023 4:34 AM EDT) Magnesium 1.02 0.69 - 1.07 mmol/L [facility] Blood 06/22/2023 4:34 AM EDT 06/22/2023 4:42 AM EDT Narrative Resulting Agency Comment Spec In Lab Eufemia Copeland MD CHEMISTRY ORDERABL ES Performing Organization Address [facility] Co de Phone Number [facility] [place] [address] * CT Abdomen & Pelvis w Contrast (06/21/2023 3:39 PM EDT) Anatomical Region Laterality Modality Abdomen, Pelvis Computed Tomogra phy Impressions 06/22/2023 7:59 AM EDT 1. ??No acute process in the abdomen or pelvis. 2. ??Severe stenosis of the proximal SMA. 3. ??Bibasilar groundglass opacities, favored atelectasis given dependent predilection, however, a superimposed infectious/inflammatory process or alveolar edema is not excluded. Thank you for letting us participate in the care of this patient. ??If you are a health care provider and have any questions regarding this report, please contact the number below. ??For patients who have questions please contact the health professional healthcare representative that requested 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 ? Electronically signed by: RONDA DUFFY MD, [facility] ([phone]), at 06/22/2023 7:59 AM Narrative 06/22/2023 7:59 AM EDT EXAMINATION: CT ABDOMEN AND PELVIS W CONTRAST CLINICAL HISTORY: Abdominal pain, acute, nonlocalized non-specific abd pain, epigastric tenderness, c/f non-cardiac chest pain TECHNIQUE: Helical CT of the abdomen and pelvis following the intravenous administration of contrast. Administered 120.0 ml of OMNIPAQUE 350.00 mg/ml. Oral contrast was administered. COMPARISON: None FINDINGS: Lower chest: Bibasilar groundglass opacities, possibly related to atelectasis given dependent predilection. Liver: Normal size and attenuation without lesions. Bile ducts: Nondilated. Gallbladder: No calcified gallstones. Normal caliber wall. Pancreas: Normal attenuation without ductal dilatation. Spleen: Normal. Adrenals: Normal. Kidneys: Normal. Urinary Bladder: Normal. Vasculature: No abdominal aortic aneurysm. Severe focal stenosis of the proximal SMA. The portal vein is patent. Lymph Nodes: No enlarged lymph nodes. Bowel: Nondilated small and large bowel. Normal appendix. Peritoneum and retroperitoneum: No free fluid or loculated fluid collection. No pneumoperitoneum. No mesenteric inflammation. Abdominal wall: Normal. Reproductive organs: Absent uterus. No adnexal mass. Osseous structures: No suspicious lesions. Procedure Note Ronda Duffy MD - 06/22/2023 EXAMINATION: CT ABDOMEN AND PELVIS W CONTRAST CLINICAL HISTORY: Abdominal pain, acute, nonlocalized non-specific abd pain, epigastric tenderness, c/f non-cardiac chest pain TECHNIQUE: Helical CT of the abdomen and pelvis following theintravenous administration of contrast. Administered 120.0 ml of OMNIPAQUE 350.00mg/ml. Oral contrast was administered. COMPARISON: None FINDINGS: Lower chest: Bibasilar groundglass opacities, possibly related toatelectasis given dependent predilection. Liver: Normal size and attenuation without lesions. Bile ducts: Nondilated. Gallbladder: No calcified gallstones. Normal caliber wall. Pancreas: Normal attenuation without ductal dilatation. Spleen: Normal. Adrenals: Normal. Kidneys: Normal. Urinary Bladder: Normal. Vasculature: No abdominal aortic aneurysm. Severe focal stenosis of theproximal SMA. The portal vein is patent. Lymph Nodes: No enlarged lymph nodes. Bowel: Nondilated small and large bowel. Normal appendix. Peritoneum and retroperitoneum: No free fluid or loculated fluidcollection. No pneumoperitoneum. No mesenteric inflammation. Abdominal wall: Normal. Reproductive organs: Absent uterus. No adnexal mass. Osseous structures: No suspicious lesions. IMPRESSION 1. No acute process in the abdomen or pelvis. 2. Severe stenosis of the proximal SMA. 3. Bibasilar groundglass opacities, favored atelectasis given dependent predilection, however, a superimposed infectious/inflammatory process or alveolar edema is not excluded. Thank you for letting us participate in the care of this patient. If youare a health care provider and have any questions regarding this report,please contact the number below. For patients who have questions please contactthe health professional healthcare representative that requested 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 Electronically signed by: RONDA DUFFY MD, [facility]([phone]), at 06/22/2023 7:59 AM Eufemia Copeland MD IMG CT ORDERABLES * EKG 12 Lead (06/21/2023 10:06 AM EDT) Ventricular rate 51 BPM MUSE SYSTEM Atrial Rate 51 BPM MUSE SYSTEM P-R Interval 176 ms MUSE SYSTEM QRS Duration 92 ms MUSE SYSTEM Q-T Interval 450 ms MUSE SYSTEM QTC Calculated (Bezet) 414 ms MUSE SYSTEM Calculated P [place] 17 degrees MUSE SYSTEM Calculated R [place] 35 degrees MUSE SYSTEM Calculated T [place] 13 degrees MUSE SYSTEM INTERPRETATION Sinus bradycardia Nonspecific ST and T wave abnormality Abnormal ECG When compared with ECG of 19-JUN-2023 04:24, T wave inversion now evident in Inferior leads T wave inversion now evident in Anterior leads QT has shortened Confirmed by MD [place], Gus ([id number]) on 06/21/2023 3:52:44 PM MUSE SYSTEM 06/21/2023 10:0 6 AM EDT 06/21/2023 3:52 PM EDT Eufemia Copeland MD ECG ORDERABLES MUSE SYSTEM * (ABNORMAL) Troponin (06/21/2023 9:45 AM EDT) Troponin-T HS 22(H) <=14 ng/L [facility] Comment: This patient's troponin T [...] troponin value can be found in the [facility] Test Catalog Troponin - [facility] Test Catalog Reference: Fourth [place] Definition of Myocardial Infarction. Journal of the [place] [employer] 2018;72:7540-2895 Blood 06/21/2023 9:45 AM EDT 06/21/2023 10:08 AM EDT Narrative Resulting Agency Comment Spec In Lab Eufemia Copeland MD CHEMISTRY ORDERABL ES Performing Organization Address City/[facility]/ZIP Co de Phone Number [facility] [place] [address] * (ABNORMAL) pro-Brain Natriuretic Peptide (06/21/2023 5:58 AM EDT) ProBNP 1,370(H) <=124 pg/mL [facility] Blood Venous Draw / Unknown 06/21/2023 5:58 AM EDT 06/21/2023 7:28 AM EDT Narrative Resulting Agency Comment Spec In Lab Eufemia Copeland MD CHEMISTRY ORDERABL ES Performing Organization Address [facility] Co de Phone Number [facility] [place] [address] * Potassium (06/21/2023 5:58 AM EDT) Potassium 4.0 3.5 - 5.0 mmol/L [facility] Comment: Please note: ??Patients with WBC >100,000 may have falsely elevated Potassium levels. ??For accurate Potassium quantification in these patients send serum separator tube (gold top) for subsequent determinations. ??Contact the Clinical Chemistry Laboratory if there are any questions. Blood 06/21/2023 5:58 AM EDT 06/21/2023 6:07 AM EDT Narrative Resulting Agency Comment Spec In Lab Eufemia Copeland MD CHEMISTRY ORDERABL ES Performing Organization Address City/[facility]/ZIP Co de Phone Number [facility] [place] [address] * Differential, Automated (06/21/2023 3:25 AM EDT) Neutrophils % 54.0 % [facility] Neutr Abs (ANC) 5.02 1.70 - 6.10 x10(3)/[facility] Lymphocytes % 31.8 % [facility] Lymphocytes Abs 3.0 0.9 - 3.2 x10(3)/[facility] Monocytes % 8.9 % [facility] Monocyte Abs 0.8 0.3 - 0.9 x10(3)/[facility] Eosinophils % 4.2 % [facility] Eosinophils Abs 0.4 0.0 - 0.4 x10(3)/[facility] Basophils % 0.8 % [facility] Basophils Abs 0.1 0.0 - 0.1 x10(3)/[facility] Immature Gran % 0.30 % [facility] Comment: Immature granulocytes(IG's)percentage and absolute count will include metamyelocytes, myelocytes, and promyelocytes. Blood smears from CBCs yielding IG's will be scanned manually for concordance. If this scan disagrees with the automated IG or if promyelocytes are noted, a manual differential will be performed. Shonda Gran Abs 0.03 0.00 - 0.04 x10(3)/[facility] Blood 06/21/2023 3:25 AM EDT 06/21/2023 3:45 AM EDT Narrative Resulting Agency Comment Spec In Lab Terrence Keating MD HEMATOLOGY ORDERABLE S [facility] [place] [address] * Hemogram (06/21/2023 3:25 AM EDT) WBC 9.3 4.0 - 9.5 x10(3)/[facility] RBC 4.74 4.00 - 5.21 x10(6)/[facility] Hemoglobin 14.9 11.7 - 15.5 g/dL [facility] Hematocrit 44.2 35.7 - 45.8 % [facility] MCV 93.2 82.6 - 94.4 [facility] MCH 31.4 27.1 - 32.0 pg [facility] MCHC 33.7 31.7 - 35.0 g/dL [facility] Platelets 279 145 - 357 x10(3)/[facility] RDWSD 44.7 37.0 - 46.0 [facility] RDWCV 13.1 11.5 - 14.1 % [facility] MPV 11.1 7.6 - 12.9 [facility]ORY nRBC % Auto 0.0 % [facility] nRBC Abs Auto 0.000 0.000 - 0.000 x10(3)/[facility] Blood 06/21/2023 3:25 AM EDT 06/21/2023 3:45 AM EDT Narrative Resulting Agency Comment Spec In Lab Terrence Keating MD HEMATOLOGY ORDERABLE S [facility] [place] [address] * (ABNORMAL) Basic Metabolic Panel (non-fasting) (06/21/2023 3:25 AM EDT) Glucose Lvl 95 65 - 199 mg/dL [facility] Comment:Diabetes: >=200 mg/d L plus symptoms BUN 27(H) 8 - 18 mg/dL [facility] Creatinine 1.11 0.70 - 1.20 mg/dL [facility] Sodium 138 135 - 145 mmol/L [facility] Potassium Not Perf 3.5 - 5.0 [facility] Comment: Unable to quantitate due to sample hemolysis. ??Sample redraw suggested. Called by: KEVAN, Read back by: CHAYO MUNGUIA, Date/Time:06/21/23 04:25. Please note: ??Patients with WBC >100,000 may have falsely elevated Potassium levels. ??For accurate Potassium quantification in these patients send serum separator tube (gold top) for subsequent determinations. ??Contact the Clinical Chemistry Laboratory if there are any questions. Chloride 100 98 - 107 mmol/L [facility] CO2 26 22 - 31 mmol/L [facility] Anion Gap 12 5 - 15 mmol/L [facility] Calcium 9.7 8.5 - 10.5 mg/dL [facility] Estimated GFR 59(L) >=60 mL/min/1. 73 m?? [facility] Comment: This patient's estimated GFR was [...] and symptoms in addition to eGFR. Blood 06/21/2023 3:25 AM EDT 06/21/2023 3:45 AM EDT Narrative Resulting Agency Comment Spec In Lab Eufemia Copeland MD CHEMISTRY ORDERABL ES [facility] [place] [address] * (ABNORMAL) Phosphorus (06/21/2023 3:25 AM EDT) Phosphorus 5.1(H) 2.5 - 4.5 mg/dL [facility] Blood 06/21/2023 3:25 AM EDT 06/21/2023 3:45 AM EDT Narrative Resulting Agency Comment Spec In Lab Eufemia Copeland MD CHEMISTRY ORDERABL ES Performing Organization Address City/[facility]/ZIP Co de Phone Number [facility] [place] [address] * Magnesium (06/21/2023 3:25 AM EDT) Pathologist [facility] Magnesium 1.04 0.69 - 1.07 mmol/L [facility] Blood 06/21/2023 3:25 AM EDT 06/21/2023 3:45 AM EDT Narrative Resulting Agency Comment Spec In Lab Eufemia Copeland MD CHEMISTRY ORDERABL ES Performing Organization Address [facility] Co de Phone Number [facility] [place] [address] * (ABNORMAL) Differential, Automated (06/20/2023 3:32 AM EDT) [facility] Neutrophils % 52.5 % [facility] Neutr Abs (ANC) 5.28 1.70 - 6.10 x10(3)/mc L [facility] Lymphocytes % 32.4 % [facility] Lymphocytes Abs 3.3(H) 0.9 - 3.2 x10(3)/mc L [facility] Monocytes % 9.7 % [facility] Monocyte Abs 1.0(H) 0.3 - 0.9 x10(3)/mc L [facility] Eosinophils % 4.3 % [facility] Eosinophils Abs 0.4 0.0 - 0.4 x10(3)/mc L [facility] Basophils % 0.7 % [facility] Basophils Abs 0.1 0.0 - 0.1 x10(3)/mc L [facility] Immature Gran % 0.40 % [facility] Comment: Immature granulocytes(IG's)percentage and absolute count will include metamyelocytes, myelocytes, and promyelocytes. Blood smears from CBCs yielding IG's will be scanned manually for concordance. If this scan disagrees with the automated IG or if promyelocytes are noted, a manual differential will be performed. Shonda Gran Abs 0.04 0.00 - 0.04 x10(3)/mc L [facility] Blood 06/20/2023 3:32 AM EDT 06/20/2023 3:47 AM EDT Narrative Resulting Agency Comment Spec In Lab Terrence Keating MD HEMATOLOGY ORDERABLE S [facility] [place] [address] * (ABNORMAL) Hemogram (06/20/2023 3:32 AM EDT) WBC 10.1(H) 4.0 - 9.5 x10(3)/[facility] RBC 4.57 4.00 - 5.21 x10(6)/[facility] Hemoglobin 14.2 11.7 - 15.5 g/dL [facility] Hematocrit 41.5 35.7 - 45.8 % [facility] MCV 90.8 82.6 - 94.4 [facility] MCH 31.1 27.1 - 32.0 pg [facility] MCHC 34.2 31.7 - 35.0 g/dL [facility] Platelets 253 145 - 357 x10(3)/[facility] RDWSD 43.7 37.0 - 46.0 [facility] RDWCV 13.2 11.5 - 14.1 % [facility] MPV 10.8 7.6 - 12.9 [facility] nRBC % Auto 0.0 % [facility] nRBC Abs Auto 0.000 0.000 - 0.000 x10(3)/[facility] Blood 06/20/2023 3:32 AM EDT 06/20/2023 3:47 AM EDT Narrative Resulting Agency Comment Spec In Lab Terrence Keating MD HEMATOLOGY ORDERABLE S [facility] [place] [address] * (ABNORMAL) Basic Metabolic Panel (non-fasting) (06/20/2023 3:32 AM EDT) Glucose Lvl 99 65 - 199 mg/dL [facility] Comment:Diabetes: >=200 mg/d L plus symptoms BUN 26(H) 8 - 18 mg/dL [facility] Creatinine 1.12 0.70 - 1.20 mg/dL [facility] Sodium 137 135 - 145 mmol/L [facility] Potassium 3.7 3.5 - 5.0 mmol/L [facility] Comment: Please note: ??Patients with WBC >100,000 may have falsely elevated Potassium levels. ??For accurate Potassium quantification in these patients send serum separator tube (gold top) for subsequent determinations. ??Contact the Clinical Chemistry Laboratory if there are any questions. Chloride 102 98 - 107 mmol/L [facility] CO2 22 22 - 31 mmol/L [facility] Anion Gap 13 5 - 15 mmol/L [facility] Calcium 9.4 8.5 - 10.5 mg/dL [facility] Estimated GFR 58(L) >=60 mL/min/1. 73 m?? [facility] Comment: This patient's estimated GFR was [...] and symptoms in addition to eGFR. Blood 06/20/2023 3:32 AM EDT 06/20/2023 3:47 AM EDT Narrative Resulting Agency Comment Spec In Lab Eufemia Copeland MD CHEMISTRY ORDERABL ES Performing Organization Address [facility] Co de Phone Number [facility] [place] [address] * Phosphorus (06/20/2023 3:32 AM EDT) Phosphorus 4.3 2.5 - 4.5 mg/dL [facility] Blood 06/20/2023 3:32 AM EDT 06/20/2023 3:47 AM EDT Narrative Resulting Agency Comment Spec In Lab Eufemia Copeland MD CHEMISTRY ORDERABL ES Performing Organization Address [facility] de Phone Number [facility] [place] [address] * Magnesium (06/20/2023 3:32 AM EDT) Magnesium 1.00 0.69 - 1.07 mmol/L [facility] Blood 06/20/2023 3:32 AM EDT 06/20/2023 3:47 AM EDT Narrative Resulting Agency Comment Spec In Lab Eufemia Copeland MD CHEMISTRY ORDERABL ES Performing Organization Address [facility] Co de Phone Number [facility] [place] [address] * Phosphorus (06/19/2023 5:26 PM EDT) Phosphorus 4.0 2.5 - 4.5 mg/dL [facility] Blood 06/19/2023 5:26 PM EDT 06/19/2023 5:32 PM EDT Narrative Resulting Agency Comment Spec In Lab Eufemia Copeland MD CHEMISTRY ORDERABL ES Performing Organization Address City/[facility]/ZIP Co de Phone Number [facility] [place] [address] * Magnesium (06/19/2023 5:26 PM EDT) Magnesium 0.98 0.69 - 1.07 mmol/L [facility] Blood 06/19/2023 5:26 PM EDT 06/19/2023 5:32 PM EDT Narrative Resulting Agency Comment Spec In Lab Eufemia Copeland MD CHEMISTRY ORDERABL ES Performing Organization Address [facility] Co de Phone Number [facility] [place] [address] * (ABNORMAL) Basic Metabolic Panel (non-fasting) (06/19/2023 5:26 PM EDT) Pathologist [facility] Glucose Lvl 105 65 - 199 mg/dL [facility] Comment:Diabetes: >=200 mg/d L plus symptoms BUN 21(H) 8 - 18 mg/dL [facility] Creatinine 1.06 0.70 - 1.20 mg/dL [facility] Sodium 139 135 - 145 mmol/L [facility] Potassium 3.9 3.5 - 5.0 mmol/L [facility] Comment: Please note: ??Patients with WBC >100,000 may have falsely elevated Potassium levels. ??For accurate Potassium quantification in these patients send serum separator tube (gold top) for subsequent determinations. ??Contact the Clinical Chemistry Laboratory if there are any questions. Chloride 103 98 - 107 mmol/L [facility] CO2 22 22 - 31 mmol/L [facility] Anion Gap 14 5 - 15 mmol/L [facility] Calcium 9.5 8.5 - 10.5 mg/dL [facility] Estimated GFR 62 >=60 mL/min/1. 73 m?? [facility] Comment: This patient's estimated GFR was [...] and symptoms in addition to eGFR. Blood 06/19/2023 5:26 PM EDT 06/19/2023 5:32 PM EDT Narrative Resulting Agency Comment Spec In Lab Eufemia Copeland MD CHEMISTRY ORDERABL ES Performing Organization Address [facility] de Phone Number [facility] [place] [address] * EKG 12 Lead (06/19/2023 4:24 AM EDT) Ventricular rate 66 BPM MUSE SYSTEM Atrial Rate 66 BPM MUSE SYSTEM P-R Interval 188 ms MUSE SYSTEM QRS Duration 92 ms MUSE SYSTEM Q-T Interval 484 ms MUSE SYSTEM QTC Calculated (Bezet) 507 ms MUSE SYSTEM Calculated P [place] 32 degrees MUSE SYSTEM Calculated R [place] 22 degrees MUSE SYSTEM Calculated T [place] 47 degrees MUSE SYSTEM INTERPRETATION Normal sinus rhythm Nonspecific ST abnormality Prolonged QT Abnormal ECG When compared with ECG of 15-JUN-2023 10:50, No significant change was found Confirmed by MD AKIRA, CINDY ([id number]) on 06/19/2023 2:42:42 PM MUSE SYSTEM 06/19/2023 4:24 AM EDT 06/19/2023 2:42 PM EDT Terrence Keating MD ECG ORDERABLES Performing Organization Address [facility] Co de Phone Number MUSE SYSTEM * (ABNORMAL) Basic Metabolic Panel (non-fasting) (06/19/2023 3:22 AM EDT) Glucose Lvl 101 65 - 199 mg/dL [facility] Comment:Diabetes: >=200 mg/d L plus symptoms BUN 24(H) 8 - 18 mg/dL [facility] Creatinine 1.04 0.70 - 1.20 mg/dL [facility] Sodium 137 135 - 145 mmol/L [facility] Potassium 3.6 3.5 - 5.0 mmol/L [facility] Comment: Please note: ??Patients with WBC >100,000 may have falsely elevated Potassium levels. ??For accurate Potassium quantification in these patients send serum separator tube (gold top) for subsequent determinations. ??Contact the Clinical Chemistry Laboratory if there are any questions. Chloride 100 98 - 107 mmol/L [facility] CO2 Not Perf - [facility] Comment:Add-on request. Flaca le too old to perform test. Anion Gap Unable to Calculate 5 - 15 mmol/L [facility] Calcium 9.4 8.5 - 10.5 mg/dL [facility] Estimated GFR 64 >=60 mL/min/1 .73 m?? [facility] Comment: This patient's estimated GFR was [...] and symptoms in addition to eGFR. Blood Venous Draw / Unknown 06/19/2023 3:22 AM EDT 06/19/2023 3:49 AM EDT Narrative Resulting Agency Comment Spec In Lab Eufemia Copeland MD CHEMISTRY ORDERABL ES [facility] [place] [address] * Differential, Automated (06/19/2023 3:22 AM EDT) Neutrophils % 54.0 % [facility] Neutr Abs (ANC) 5.08 1.70 - 6.10 x10(3)/[facility] Lymphocytes % 30.7 % [facility] Lymphocytes Abs 2.9 0.9 - 3.2 x10(3)/[facility] Monocytes % 10.0 % [facility] Monocyte Abs 0.9 0.3 - 0.9 x10(3)/[facility] Eosinophils % 4.5 % [facility] Eosinophils Abs 0.4 0.0 - 0.4 x10(3)/[facility] Basophils % 0.6 % [facility] Basophils Abs 0.1 0.0 - 0.1 x10(3)/[facility] Immature Gran % 0.20 % [facility] Comment: Immature granulocytes(IG's)percentage and absolute count will include metamyelocytes, myelocytes, and promyelocytes. Blood smears from CBCs yielding IG's will be scanned manually for concordance. If this scan disagrees with the automated IG or if promyelocytes are noted, a manual differential will be performed. Shonda Gran Abs 0.02 0.00 - 0.04 x10(3)/[facility] Blood 06/19/2023 3:22 AM EDT 06/19/2023 3:47 AM EDT Narrative Resulting Agency Comment Spec In Lab Terrence Keating MD HEMATOLOGY ORDERABLE S [facility] [place] [address] * Hemogram (06/19/2023 3:22 AM EDT) WBC 9.4 4.0 - 9.5 x10(3)/[facility] RBC 4.48 4.00 - 5.21 x10(6)/[facility] Hemoglobin 13.9 11.7 - 15.5 g/dL [facility] Hematocrit 41.7 35.7 - 45.8 % [facility] MCV 93.1 82.6 - 94.4 [facility] MCH 31.0 27.1 - 32.0 pg [facility] MCHC 33.3 31.7 - 35.0 g/dL [facility] Platelets 244 145 - 357 x10(3)/[facility] RDWSD 44.2 37.0 - 46.0 [facility] RDWCV 12.9 11.5 - 14.1 % [facility] MPV 10.9 7.6 - 12.9 [facility] nRBC % Auto 0.0 % [facility] nRBC Abs Auto 0.000 0.000 - 0.000 x10(3)/[facility] Blood 06/19/2023 3:22 AM EDT 06/19/2023 3:47 AM EDT Narrative Resulting Agency Comment Spec In Lab Terrence Keating MD HEMATOLOGY ORDERABLE S Performing Organization Address City/[facility]/ZIP Co de Phone Number [facility] [place] [address] * Phosphorus (06/19/2023 3:22 AM EDT) Phosphorus 4.1 2.5 - 4.5 mg/dL [facility] Blood 06/19/2023 3:22 AM EDT 06/19/2023 3:47 AM EDT Narrative Resulting Agency Comment Spec In Lab Eufemia Copeland MD CHEMISTRY ORDERABL ES Performing Organization Address City/[facility]/ZIP Co de Phone Number [facility] [place] [address] * Magnesium (06/19/2023 3:22 AM EDT) Magnesium 1.00 0.69 - 1.07 mmol/L [facility] Blood 06/19/2023 3:22 AM EDT 06/19/2023 3:47 AM EDT Narrative Resulting Agency Comment Spec In Lab Eufemia Copeland MD CHEMISTRY ORDERABL ES [facility] [place] [address] * (ABNORMAL) Basic Metabolic Panel (non-fasting) (06/18/2023 5:17 PM EDT) Glucose Lvl 115 65 - 199 mg/dL [facility] Comment:Diabetes: >=200 mg/d L plus symptoms BUN 22(H) 8 - 18 mg/dL [facility] Creatinine 1.12 0.70 - 1.20 mg/dL [facility] Sodium 137 135 - 145 mmol/L [facility] Potassium 4.2 3.5 - 5.0 mmol/L [facility] Comment: Please note: ??Patients with WBC >100,000 may have falsely elevated Potassium levels. ??For accurate Potassium quantification in these patients send serum separator tube (gold top) for subsequent determinations. ??Contact the Clinical Chemistry Laboratory if there are any questions. Chloride 101 98 - 107 mmol/L [facility] CO2 22 22 - 31 mmol/L [facility] Anion Gap 14 5 - 15 mmol/L [facility] Calcium 9.6 8.5 - 10.5 mg/dL [facility] Estimated GFR 58(L) >=60 mL/min/1. 73 m?? [facility] Comment: This patient's estimated GFR was [...] and symptoms in addition to eGFR. Blood 06/18/2023 5:17 PM EDT 06/18/2023 5:22 PM EDT Narrative Resulting Agency Comment Spec In Lab Eufemia Copeland MD CHEMISTRY ORDERABL ES [facility] [place] [address] * (ABNORMAL) Basic Metabolic Panel (non-fasting) (06/18/2023 4:19 AM EDT) Glucose Lvl 96 65 - 199 mg/dL [facility] Comment:Diabetes: >=200 mg/d L plus symptoms BUN 22(H) 8 - 18 mg/dL [facility] Creatinine 0.93 0.70 - 1.20 mg/dL [facility] Sodium 138 135 - 145 mmol/L [facility] Potassium 4.2 3.5 - 5.0 mmol/L [facility] Comment: Please note: ??Patients with WBC >100,000 may have falsely elevated Potassium levels. ??For accurate Potassium quantification in these patients send serum separator tube (gold top) for subsequent determinations. ??Contact the Clinical Chemistry Laboratory if there are any questions. Chloride 102 98 - 107 mmol/L [facility] CO2 Not Perf 22 - 31 [facility] Comment:Add-on request. Samp le too old to perform test. Anion Gap Unable to Calculate 5 - 15 mmol/L [facility] Calcium 9.5 8.5 - 10.5 mg/dL [facility] Estimated GFR 73 >=60 mL/min/1 .73 m?? [facility] Comment: This patient's estimated GFR was [...] and symptoms in addition to eGFR. Blood 06/18/2023 4:19 AM EDT 06/18/2023 4:42 AM EDT Narrative Resulting Agency Comment Spec In Lab Eufemia Copeland MD CHEMISTRY ORDERABL ES [facility] [place] [address] * Differential, Automated (06/18/2023 4:19 AM EDT) Neutrophils % 54.1 % [facility] Neutr Abs (ANC) 4.52 1.70 - 6.10 x10(3)/[facility] Lymphocytes % 31.0 % [facility] Lymphocytes Abs 2.6 0.9 - 3.2 x10(3)/[facility] Monocytes % 9.2 % [facility] Monocyte Abs 0.8 0.3 - 0.9 x10(3)/[facility] Eosinophils % 4.9 % [facility] Eosinophils Abs 0.4 0.0 - 0.4 x10(3)/[facility] Basophils % 0.6 % [facility] Basophils Abs 0.0 0.0 - 0.1 x10(3)/[facility] Immature Gran % 0.20 % [facility] Comment: Immature granulocytes(IG's)percentage and absolute count will include metamyelocytes, myelocytes, and promyelocytes. Blood smears from CBCs yielding IG's will be scanned manually for concordance. If this scan disagrees with the automated IG or if promyelocytes are noted, a manual differential will be performed. Shonda Gran Abs 0.02 0.00 - 0.04 x10(3)/[facility] Blood 06/18/2023 4:19 AM EDT 06/18/2023 4:40 AM EDT Narrative Resulting Agency Comment Spec In Lab Terrence Keating [place] [address] * Hemogram (06/18/2023 4:19 AM EDT) WBC 8.4 4.0 - 9.5 x10(3)/[facility] RBC 4.70 4.00 - 5.21 x10(6)/[facility] Hemoglobin 14.5 11.7 - 15.5 g/dL [facility] Hematocrit 42.8 35.7 - 45.8 % [facility] MCV 91.1 82.6 - 94.4 [facility] MCH 30.9 27.1 - 32.0 pg [facility] MCHC 33.9 31.7 - 35.0 g/dL [facility] Platelets 258 145 - 357 x10(3)/[facility] RDWSD 43.6 37.0 - 46.0 [facility] RDWCV 13.0 11.5 - 14.1 % [facility] MPV 10.7 7.6 - 12.9 [facility] nRBC % Auto 0.0 % [facility] nRBC Abs Auto 0.000 0.000 - 0.000 x10(3)/[facility] Blood 06/18/2023 4:19 AM EDT 06/18/2023 4:40 AM EDT Narrative Resulting Agency Comment Spec In Lab Terrence Keating MD HEMATOLOGY ORDERABLE S [facility] [place] [address] * Phosphorus (06/18/2023 4:19 AM EDT) Phosphorus 3.7 2.5 - 4.5 mg/dL [facility] Blood 06/18/2023 4:19 AM EDT 06/18/2023 4:40 AM EDT Narrative Resulting Agency Comment Spec In Lab Eufemia Copeland MD CHEMISTRY ORDERABL ES Performing Organization Address City/[facility]/ZIP Co de Phone Number [facility] [place] [address] * Magnesium (06/18/2023 4:19 AM EDT) Magnesium 1.02 0.69 - 1.07 mmol/L [facility] Blood 06/18/2023 4:19 AM EDT 06/18/2023 4:40 AM EDT Narrative Resulting Agency Comment Spec In Lab Eufemia Copeland MD CHEMISTRY ORDERABL ES Performing Organization Address City/[facility]/ZIP Co de Phone Number [facility] [place] [address] * Phosphorus (06/17/2023 2:26 PM EDT) Phosphorus 2.8 2.5 - 4.5 mg/dL [facility] Blood 06/17/2023 2:26 PM EDT 06/17/2023 2:36 PM EDT Narrative Resulting Agency Comment Spec In Lab Eufemia Copeland MD CHEMISTRY ORDERABL ES Performing Organization Address City/[facility]/ZIP Co de Phone Number [facility] [place] [address] * Magnesium (06/17/2023 2:26 PM EDT) Magnesium 1.01 0.69 - 1.07 mmol/L [facility] Blood 06/17/2023 2:26 PM EDT 06/17/2023 2:36 PM EDT Narrative Resulting Agency Comment Spec In Lab Eufemia Copeland MD CHEMISTRY ORDERABL ES [facility] [place] [address] * (ABNORMAL) Basic Metabolic Panel (non-fasting) (06/17/2023 2:26 PM EDT) Glucose Lvl 103 65 - 199 mg/dL [facility] Comment:Diabetes: >=200 mg/d L plus symptoms BUN 21(H) 8 - 18 mg/dL [facility] Creatinine 1.07 0.70 - 1.20 mg/dL [facility] Sodium 135 135 - 145 mmol/L [facility] Potassium 3.7 3.5 - 5.0 mmol/L [facility] Comment: Please note: ??Patients with WBC >100,000 may have falsely elevated Potassium levels. ??For accurate Potassium quantification in these patients send serum separator tube (gold top) for subsequent determinations. ??Contact the Clinical Chemistry Laboratory if there are any questions. Chloride 97(L) 98 - 107 mmol/L [facility] CO2 24 22 - 31 mmol/L [facility] Anion Gap 14 5 - 15 mmol/L [facility] Calcium 9.6 8.5 - 10.5 mg/dL [facility] Estimated GFR 62 >=60 mL/min/1. 73 m?? [facility] Comment: This patient's estimated GFR was [...] and symptoms in addition to eGFR. Blood 06/17/2023 2:26 PM EDT 06/17/2023 2:36 PM EDT Narrative Resulting Agency Comment Spec In Lab Eufemia Copeland MD CHEMISTRY ORDERABL ES [facility] [place] [address] * XR Abdomen Flat & Upright (06/17/2023 11:44 AM EDT) Anatomical Region Laterality Modality Abdomen N/A Digital Radiogra phy Impressions 06/17/2023 5:30 PM EDT Normal bowel gas pattern. Thank you for letting us participate in the care of this patient. ??If you are a health care provider and have any questions regarding this report, please contact the number below. ??For patients who have questions please contact the health professional healthcare representative that requested 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 ? Electronically signed by: Wilton Cabrera MD, [facility] ([phone]), at 06/17/2023 5:30 PM Narrative 06/17/2023 5:30 PM EDT EXAMINATION: XR ABDOMEN FLAT AND UPRIGHT CLINICAL HISTORY: patient with foul odor from belly botton. hx hysterectomy, LLQ tenderness, constipation TECHNIQUE: Supine and upright views the abdomen. COMPARISON: None. FINDINGS: There is a normal amount of stool and small amount of gas present scattered throughout a nondistended colon. There are no dilated loops of small bowel. No free air or pneumatosis. Procedure Note Wilton Cabrera MD - 06/17/2023 EXAMINATION: XR ABDOMEN FLAT AND UPRIGHT CLINICAL HISTORY: patient with foul odor from pallavi michelle. hx hysterectomy, LLQ tenderness, constipation TECHNIQUE: Supine and upright views the abdomen. COMPARISON: None. FINDINGS: There is a normal amount of stool and small amount of gas presentscattered throughout a nondistended colon. There are no dilated loops of smallbowel. No free air or pneumatosis. IMPRESSION Normal bowel gas pattern. Thank you for letting us participate in the care of this patient. If youare a health care provider and have any questions regarding this report,please contact the number below. For patients who have questions please contactthe health professional healthcare representative that requested 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 Electronically signed by: Wilton Cabrera MD, [facility]([phone]), at 06/17/2023 5:30 PM Eufemia Copeland MD IMG DX ORDERABLES * (ABNORMAL) Basic Metabolic Panel (non-fasting) (06/17/2023 5:01 AM EDT) Glucose Lvl 100 65 - 199 mg/dL [facility] Comment:Diabetes: >=200 mg/d L plus symptoms BUN 24(H) 8 - 18 mg/dL [facility] Creatinine 1.03 0.70 - 1.20 mg/dL [facility] Sodium 136 135 - 145 mmol/L [facility] Potassium Not Perf 3.5 - 5.0 [facility] Comment: Unable to quantitate due to sample hemolysis. ??Sample redraw suggested. Called by: PARRIS, Read back by: Oilve Hernandez, Date/Time:06/17/23 05:44. Please note: ??Patients with WBC >100,000 may have falsely elevated Potassium levels. ??For accurate Potassium quantification in these patients send serum separator tube (gold top) for subsequent determinations. ??Contact the Clinical Chemistry Laboratory if there are any questions. Chloride 100 98 - 107 mmol/L [facility] CO2 24 22 - 31 mmol/L [facility] Anion Gap 12 5 - 15 mmol/L [facility] Calcium 9.5 8.5 - 10.5 mg/dL [facility] Estimated GFR 65 >=60 mL/min/1. 73 m?? [facility] Comment: This patient's estimated GFR was [...] and symptoms in addition to eGFR. Blood 06/17/2023 5:01 AM EDT 06/17/2023 5:07 AM EDT Narrative Resulting Agency Comment Spec In Lab Terrence Keating MD CHEMISTRY ORDERABLES Performing Organization Address City/State/[facility] Co de Phone Number [facility] [place] [address] * Differential, Automated (06/17/2023 1:11 AM EDT) Neutrophils % 54.5 % [facility] Neutr Abs (ANC) 5.20 1.70 - 6.10 x10(3)/[facility] Lymphocytes % 31.4 % [facility] Lymphocytes Abs 3.0 0.9 - 3.2 x10(3)/[facility] Monocytes % 9.8 % [facility] Monocyte Abs 0.9 0.3 - 0.9 x10(3)/[facility] Eosinophils % 3.4 % [facility] Eosinophils Abs 0.3 0.0 - 0.4 x10(3)/[facility] Basophils % 0.5 % [facility] Basophils Abs 0.0 0.0 - 0.1 x10(3)/[facility] Immature Gran % 0.40 % [facility] Comment: Immature granulocytes(IG's)percentage and absolute count will include metamyelocytes, myelocytes, and promyelocytes. Blood smears from CBCs yielding IG's will be scanned manually for concordance. If this scan disagrees with the automated IG or if promyelocytes are noted, a manual differential will be performed. Shonda Gran Abs 0.04 0.00 - 0.04 x10(3)/[facility] Blood 06/17/2023 1:11 AM EDT 06/17/2023 1:16 AM EDT Narrative Resulting Agency Comment Spec In Lab Terrence Keating MD HEMATOLOGY ORDERABLE S [facility] [place] [address] * Hemogram (06/17/2023 1:11 AM EDT) WBC 9.5 4.0 - 9.5 x10(3)/[facility] RBC 4.60 4.00 - 5.21 x10(6)/[facility] Hemoglobin 14.2 11.7 - 15.5 g/dL [facility] Hematocrit 43.0 35.7 - 45.8 % [facility] MCV 93.5 82.6 - 94.4 fL [facility] MCH 30.9 27.1 - 32.0 pg [facility] MCHC 33.0 31.7 - 35.0 g/dL [facility] Platelets 256 145 - 357 x10(3)/[facility] RDWSD 45.0 37.0 - 46.0 fL [facility] RDWCV 13.2 11.5 - 14.1 % [facility] MPV 10.9 7.6 - 12.9 fL [facility] nRBC % Auto 0.0 % [facility] nRBC Abs Auto 0.000 0.000 - 0.000 x10(3)/[facility] Blood 06/17/2023 1:11 AM EDT 06/17/2023 1:16 AM EDT Narrative Resulting Agency Comment Spec In Lab Terrence Keating MD HEMATOLOGY ORDERABLE S Performing Organization Address [facility] Co de Phone Number [facility] [place] [address] * Magnesium (06/17/2023 1:11 AM EDT) Magnesium 0.96 0.69 - 1.07 mmol/L [facility] Blood 06/17/2023 1:11 AM EDT 06/17/2023 1:16 AM EDT Narrative Resulting Agency Comment Spec In Lab Eufemia Copeland MD CHEMISTRY ORDERABL ES Performing Organization Address [facility] Co de Phone Number [facility] [place] [address] * (ABNORMAL) Basic Metabolic Panel (non-fasting) (06/17/2023 1:11 AM EDT) Glucose Lvl 102 65 - 199 mg/dL [facility] Comment:Diabetes: >=200 mg/d L plus symptoms BUN 24(H) 8 - 18 mg/dL [facility] Creatinine 1.08 0.70 - 1.20 mg/dL [facility] Sodium 137 135 - 145 mmol/L [facility] Potassium 4.1 3.5 - 5.0 mmol/L [facility] Comment: Please note: ??Patients with WBC >100,000 may have falsely elevated Potassium levels. ??For accurate Potassium quantification in these patients send serum separator tube (gold top) for subsequent determinations. ??Contact the Clinical Chemistry Laboratory if there are any questions. Chloride 100 98 - 107 mmol/L [facility] CO2 24 22 - 31 mmol/L [facility] Anion Gap 13 5 - 15 mmol/L [facility] Calcium 9.2 8.5 - 10.5 mg/dL [facility] Estimated GFR 61 >=60 mL/min/1. 73 m?? [facility] Comment: This patient's estimated GFR was [...] and symptoms in addition to eGFR. Blood 06/17/2023 1:11 AM EDT 06/17/2023 1:16 AM EDT Narrative Resulting Agency Comment Spec In Lab Terrence Keating MD CHEMISTRY ORDERABLES [facility] [place] [address] * (ABNORMAL) Basic Metabolic Panel (non-fasting) (06/16/2023 8:28 PM EDT) Glucose Lvl 111 65 - 199 mg/dL [facility] Comment:Diabetes: >=200 mg/d L plus symptoms BUN 23(H) 8 - 18 mg/dL [facility] Creatinine 1.21(H) 0.70 - 1.20 mg/dL [facility] Sodium 137 135 - 145 mmol/L [facility] Potassium 4.2 3.5 - 5.0 mmol/L [facility] Comment: Please note: ??Patients with WBC >100,000 may have falsely elevated Potassium levels. ??For accurate Potassium quantification in these patients send serum separator tube (gold top) for subsequent determinations. ??Contact the Clinical Chemistry Laboratory if there are any questions. Chloride 99 98 - 107 mmol/L [facility] CO2 26 22 - 31 mmol/L [facility] Anion Gap 12 5 - 15 mmol/L [facility] Calcium 9.3 8.5 - 10.5 mg/dL [facility] Estimated GFR 53(L) >=60 mL/min/1. 73 m?? [facility] Comment: This patient's estimated GFR was [...] and symptoms in addition to eGFR. Blood 06/16/2023 8:28 PM EDT 06/16/2023 8:33 PM EDT Narrative Resulting Agency Comment Spec In Lab Eufemia Copeland MD CHEMISTRY ORDERABL ES [facility] [place] [address] * (ABNORMAL) Basic Metabolic Panel (non-fasting) (06/16/2023 2:29 PM EDT) Glucose Lvl 175 65 - 199 mg/dL [facility] Comment:Diabetes: >=200 mg/d L plus symptoms BUN 25(H) 8 - 18 mg/dL [facility] Creatinine 1.27(H) 0.70 - 1.20 mg/dL [facility] Sodium 135 135 - 145 mmol/L [facility] Potassium 3.9 3.5 - 5.0 mmol/L [facility] Comment: result rechecked-EL Please note: ??Patients with WBC >100,000 may have falsely elevated Potassium levels. ??For accurate Potassium quantification in these patients send serum separator tube (gold top) for subsequent determinations. ??Contact the Clinical Chemistry Laboratory if there are any questions. Chloride 96(L) 98 - 107 mmol/L [facility] CO2 26 22 - 31 mmol/L [facility] Anion Gap 13 5 - 15 mmol/L [facility] Calcium 9.3 8.5 - 10.5 mg/dL [facility] Estimated GFR 50(L) >=60 mL/min/1. 73 m?? [facility] Comment: This patient's estimated GFR was [...] and symptoms in addition to eGFR. Blood 06/16/2023 2:29 PM EDT 06/16/2023 2:40 PM EDT Narrative Resulting Agency Comment Spec In Lab Eufemia Copeland MD CHEMISTRY ORDERABL ES [facility] [place] [address] * (ABNORMAL) Basic Metabolic Panel (non-fasting) (06/16/2023 9:01 AM EDT) Glucose Lvl 148 65 - 199 mg/dL [facility] Comment:Diabetes: >=200 mg/d L plus symptoms BUN 27(H) 8 - 18 mg/dL [facility] Creatinine 1.27(H) 0.70 - 1.20 mg/dL [facility] Sodium 136 135 - 145 mmol/L [facility] Potassium 2.9(Criti edy) 3.5 - 5.0 mmol/L [facility] Comment: called by tmp /read back by (Malia Mcintyre)/ 06/16/23 @957 Please note: ??Patients with WBC >100,000 may have falsely elevated Potassium levels. ??For accurate Potassium quantification in these patients send serum separator tube (gold top) for subsequent determinations. ??Contact the Clinical Chemistry Laboratory if there are any questions. Chloride 91(L) 98 - 107 mmol/L [facility] CO2 32(H) 22 - 31 mmol/L [facility] Anion Gap 13 5 - 15 mmol/L [facility] Calcium 9.7 8.5 - 10.5 mg/dL [facility] Estimated GFR 50(L) >=60 mL/min/1. 73 m?? [facility] Comment: This patient's estimated GFR was [...] and symptoms in addition to eGFR. Blood 06/16/2023 9:01 AM EDT 06/16/2023 9:19 AM EDT Narrative Resulting Agency Comment Spec In Lab Eufemia Copeland MD CHEMISTRY ORDERABL ES [facility] [place] [address] * (ABNORMAL) Magnesium (06/16/2023 3:30 AM EDT) Magnesium 1.09(H) 0.69 - 1.07 mmol/L [facility] Blood Venous Draw / Unknown 06/16/2023 3:30 AM EDT 06/16/2023 3:38 AM EDT Narrative Resulting Agency Comment Spec In Lab Eufemia Copeland MD CHEMISTRY ORDERABL ES Performing Organization Address City/[facility]/ZIP Co de Phone Number [facility] [place] [address] * (ABNORMAL) Differential, Automated (06/16/2023 3:30 AM EDT) Neutrophils % 50.4 % [facility] Neutr Abs (ANC) 4.15 1.70 - 6.10 x10(3)/[facility] Lymphocytes % 33.7 % [facility] Lymphocytes Abs 2.8 0.9 - 3.2 x10(3)/[facility] Monocytes % 11.8 % [facility] Monocyte Abs 1.0(H) 0.3 - 0.9 x10(3)/[facility] Eosinophils % 3.3 % [facility] Eosinophils Abs 0.3 0.0 - 0.4 x10(3)/[facility] Basophils % 0.6 % [facility] Basophils Abs 0.0 0.0 - 0.1 x10(3)/[facility] Immature Gran % 0.20 % [facility] Comment: Immature granulocytes(IG's)percentage and absolute count will include metamyelocytes, myelocytes, and promyelocytes. Blood smears from CBCs yielding IG's will be scanned manually for concordance. If this scan disagrees with the automated IG or if promyelocytes are noted, a manual differential will be performed. Shonda Gran Abs 0.02 0.00 - 0.04 x10(3)/[facility] Blood 06/16/2023 3:30 AM EDT 06/16/2023 3:37 AM EDT Narrative Resulting Agency Comment Spec In Lab Terrence Keating MD HEMATOLOGY ORDERABLE S Performing Organization Address City/[facility]/ZIP Co de Phone Number [facility] [place] [address] * Hemogram (06/16/2023 3:30 AM EDT) [facility] WBC 8.2 4.0 - 9.5 x10(3)/[facility] RBC 4.69 4.00 - 5.21 x10(6)/[facility] Hemoglobin 14.5 11.7 - 15.5 g/dL [facility] Hematocrit 42.7 35.7 - 45.8 % [facility] MCV 91.0 82.6 - 94.4 [facility] MCH 30.9 27.1 - 32.0 pg [facility] MCHC 34.0 31.7 - 35.0 g/dL [facility] Platelets 260 145 - 357 x10(3)/[facility] RDWSD 43.5 37.0 - 46.0 [facility] RDWCV 13.0 11.5 - 14.1 % [facility] MPV 11.1 7.6 - 12.9 [facility] nRBC % Auto 0.0 % [facility] nRBC Abs Auto 0.000 0.000 - 0.000 x10(3)/[facility] Blood 06/16/2023 3:30 AM EDT 06/16/2023 3:37 AM EDT Narrative Resulting Agency Comment Spec In Lab Terrence Keating MD HEMATOLOGY ORDERABLE S [facility] [place] [address] * (ABNORMAL) Basic Metabolic Panel (non-fasting) (06/16/2023 3:30 AM EDT) Pathologist [facility] Glucose Lvl 110 65 - 199 mg/dL [facility] Comment:Diabetes: >=200 mg/d L plus symptoms BUN 28(H) 8 - 18 mg/dL [facility] Creatinine 1.20 0.70 - 1.20 mg/dL [facility] Sodium 135 135 - 145 mmol/L [facility] Potassium 2.7(Criti edy) 3.5 - 5.0 mmol/L [facility] Comment: called by KS /read back by Jolly Friedman / 06/16/23 1670 Please note: ??Patients with WBC >100,000 may have falsely elevated Potassium levels. ??For accurate Potassium quantification in these patients send serum separator tube (gold top) for subsequent determinations. ??Contact the Clinical Chemistry Laboratory if there are any questions. Chloride 90(L) 98 - 107 mmol/L [facility] CO2 33(H) 22 - 31 mmol/L [facility] Anion Gap 12 5 - 15 mmol/L [facility] Calcium 9.2 8.5 - 10.5 mg/dL [facility] Estimated GFR 54(L) >=60 mL/min/1. 73 m?? [facility] Comment: This patient's estimated GFR was [...] and symptoms in addition to eGFR. Blood 06/16/2023 3:30 AM EDT 06/16/2023 3:37 AM EDT Narrative Resulting Agency Comment Spec In Lab Eufemia Copeland MD CHEMISTRY ORDERABL ES [facility] [place] [address] * Heparin (unfractionated) Level (06/16/2023 3:30 AM EDT) Heparin UFH Level 0.64 IU/mL [facility] Comment: Heparin (anti-Xa) levels should be [...] cardiac surgery): 0.1 ? 0.3 IU/mL Blood 06/16/2023 3:30 AM EDT 06/16/2023 3:37 AM EDT Narrative Resulting Agency Comment Spec In Lab Terrence Keating MD HEMATOLOGY ORDERABLE S [facility] [place] [address] * Lipid Panel (Reflex Direct LDL) (06/16/2023 3:30 AM EDT) Chol, Total 190 mg/dL [facility] Comment: Desirable: ? <200 mg/dL Borderline High: 200-239 mg/dL Higher: ?>pe=986 mg/dL Triglycerides 126 mg/dL [facility] Comment: Normal: ?<150 mg/dL Borderline High: 150-199 mg/dL High: ?200-499 mg/dL Very High: ? >xu=220 mg/dL HDL 50 mg/dL [facility] Comment: Females: High Risk: <50 mg/dL Males: High Risk: <40 mg/dL LDL Cholesterol 115 mg/dL [facility] Comment: Desirable: ? <100 mg/dL Above Desirable: 100-129 mg/dL Borderline High: 130-159 mg/dL High: ?160-189 mg/dL Very High: ? >wq=442 mg/dL Lipid Interpretation See Note [facility] Comment: It is important to review [...] ACC/AHA Guidelines (most recently Ysabel et al. [facility] 12/09/21): For individuals with atherosclerotic cardiovascular disease (ASCVD)or LDL >an=124 mg/dL, use a high-intensity statin (40-80 mg [...] ischemic stroke, symptomatic peripheral artery disease) Blood 06/16/2023 3:30 AM EDT 06/16/2023 3:37 AM EDT Narrative Resulting Agency Comment Spec In Lab Terrence Keating MD CHEMISTRY ORDERABLES [facility] [place] [address] * (ABNORMAL) Basic Metabolic Panel (non-fasting) (06/15/2023 9:33 PM EDT) Glucose Lvl 120 65 - 199 mg/dL [facility] Comment:Diabetes: >=200 mg/d L plus symptoms BUN 29(H) 8 - 18 mg/dL [facility] Creatinine 1.38(H) 0.70 - 1.20 mg/dL [facility] Sodium 135 135 - 145 mmol/L [facility] Potassium 3.1(L) 3.5 - 5.0 mmol/L [facility] Comment: Please note: ??Patients with WBC >100,000 may have falsely elevated Potassium levels. ??For accurate Potassium quantification in these patients send serum separator tube (gold top) for subsequent determinations. ??Contact the Clinical Chemistry Laboratory if there are any questions. Chloride 92(L) 98 - 107 mmol/L [facility] CO2 31 22 - 31 mmol/L [facility] Anion Gap 12 5 - 15 mmol/L [facility] Calcium 9.4 8.5 - 10.5 mg/dL [facility] Estimated GFR 45(L) >=60 mL/min/1. 73 m?? [facility] Comment: This patient's estimated GFR was [...] and symptoms in addition to eGFR. Blood 06/15/2023 9:33 PM EDT 06/15/2023 9:39 PM EDT Narrative Resulting Agency Comment Spec In Lab Eufemia Copeland MD CHEMISTRY ORDERABL ES Performing Organization Address [facility] Co de Phone Number [facility] [place] [address] * Heparin (unfractionated) Level (06/15/2023 9:33 PM EDT) Heparin UFH Level 0.63 IU/mL [facility] Comment: Heparin (anti-Xa) levels should be [...] cardiac surgery): 0.1 ? 0.3 IU/mL Blood 06/15/2023 9:33 PM EDT 06/15/2023 9:39 PM EDT Narrative Resulting Agency Comment Spec In Lab Terrence Keating MD HEMATOLOGY ORDERABLE S Performing Organization Address City/[facility]/ZIP Co de Phone Number [facility] [place] [address] * (ABNORMAL) Magnesium (06/15/2023 5:47 PM EDT) Magnesium 1.10(H) 0.69 - 1.07 mmol/L [facility] Blood Venous Draw / Unknown 06/15/2023 5:47 PM EDT 06/15/2023 6:10 PM EDT Narrative Resulting Agency Comment Spec In Lab Terrence Keating MD CHEMISTRY ORDERABLES [facility] [place] [address] * (ABNORMAL) Basic Metabolic Panel (non-fasting) (06/15/2023 5:47 PM EDT) Glucose Lvl 147 65 - 199 mg/dL [facility] Comment:Diabetes: >=200 mg/d L plus symptoms BUN 29(H) 8 - 18 mg/dL [facility] Creatinine 1.20 0.70 - 1.20 mg/dL [facility] Sodium 134(L) 135 - 145 mmol/L [facility] Potassium 2.9(Criti edy) 3.5 - 5.0 mmol/L [facility] Comment: Called by: dm, Read back by: qamar ren, Date/Time:06/15/23 19:11. Please note: ??Patients with WBC >100,000 may have falsely elevated Potassium levels. ??For accurate Potassium quantification in these patients send serum separator tube (gold top) for subsequent determinations. ??Contact the Clinical Chemistry Laboratory if there are any questions. Chloride 89(L) 98 - 107 mmol/L [facility] CO2 29 22 - 31 mmol/L [facility] Anion Gap 16(H) 5 - 15 mmol/L [facility] Calcium 9.1 8.5 - 10.5 mg/dL [facility] Estimated GFR 54(L) >=60 mL/min/1. 73 m?? [facility] Comment: This patient's estimated GFR was [...] and symptoms in addition to eGFR. Blood 06/15/2023 5:47 PM EDT 06/15/2023 6:02 PM EDT Narrative Resulting Agency Comment Spec In Lab Eufemia Copeland MD CHEMISTRY ORDERABL ES [facility] [place] [address] * Rapid Drug Screen w/o Confirmation, Urine (06/15/2023 4:46 PM EDT) U Barbiturates Screen None Detected None Detected [facility] Comment: The barbiturate screen detects barbiturates at concentrations >200 ng/mL. Note: Not all barbiturates cross-react equally with antibody used in this screen. A ? Presumptive Positive? result indicates that the screening result was positive but has not yet been confirmed by a highly-specific method. As with any screen, occasional false positive results from cross-reacting substances may occur. Not for Medico-Legal Purposes. U Benzodiazepines Screen None Detected None Detected [facility] Comment: The benzodiazepines screen detects benzodiazepines at concentrations >100 ng/mL. Not all benzodiazepines cross-react equally with antibody used in this screen. Due to the low dosage of clonazepam, false negatives may be obtained due to low concentration of clonazepam metabolites. A ? Presumptive Positive? result indicates that the screening result was positive but has not yet been confirmed by a highly-specific method. As with any screen, occasional false positive results from cross-reacting substances may occur. Not for Medico-Legal Purposes. U Cocaine Screen None Detected None Detected [facility] Comment: The cocaine metabolites screen detects benzoylecgonine (Cocaine Metabolite) at concentrations >150 ng/mL. A ? Presumptive Positive? result indicates that the screening result was positive but has not yet been confirmed by a highly-specific method. As with any screen, occasional false positive results from cross-reacting substances may occur. Not for Medico-Legal Purposes. U Methadone Metabolites Screen None Detected None Detected [facility] Comment: The methadone metabolite screen detects EDDP (major methadone metabolite) at concentrations >100 ng/mL. A ? Presumptive Positive? result indicates that the screening result was positive but has not yet been confirmed by a highly-specific method. As with any screen, occasional false positive results from cross-reacting substances may occur. Not for Medico-Legal Purposes. U Opiate Screen None Detected None Detected [facility] Comment: The opiates screen detects opiates at concentrations >300 ng/mL. Please note that oxycodone, oxymorphone, fentanyl, tramadol, and other synthetic opioids are not detected by the opiate screen. A ? Presumptive Positive? result indicates that the screening result was positive but has not yet been confirmed by a highly-specific method. As with any screen, occasional false positive results from cross-reacting substances may occur. Not for Medico-Legal Purposes. U Cannabinoid Screen None Detected None Detected [facility] Comment: The marijuana metabolites screen detects the THC metabolite (59-nxn-7-carboxy-delta 9-THC) at concentrations >20 ng/mL. A ? Presumptive Positive? result indicates that the screening result was positive but has not yet been confirmed by a highly-specific method. As with any screen, occasional false positive results from cross-reacting substances may occur. Not for Medico-Legal Purposes. U Oxycodone Screen None Detected None Detected [facility] Comment: The oxycodone screen detects oxycodone and oxymorphone at concentrations >100 ng/mL. A ? Presumptive Positive? result indicates that the screening result was positive but has not yet been confirmed by a highly-specific method. As with any screen, occasional false positive results from cross-reacting substances may occur. Not for Medico-Legal Purposes. U Buprenorphine Screen None Detected None Detected [facility] Comment: The buprenorphine screen detects buprenorphine at concentrations >=5 ng/mL. A ? Presumptive Positive? result indicates that the screening result was positive but has not yet been confirmed by a highly-specific method. As with any screen, occasional false positive results from cross-reacting substances may occur. Not for Medico-Legal Purposes. This test has not been cleared by the [place] FDA. Performance characteristics of this test were determined by [facility] in accordance with CLIA requirements. This laboratory is qualified under CLIA to perform high-complexity testing. U Fentanyl Screen None Detected None Detected [facility] Comment: The fentanyl screen detects fentanyl at concentrations >=2 ng/mL. A ? Presumptive Positive? result indicates that the screening result was positive but has not yet been confirmed by a highly-specific method. As with any screen, occasional false positive results from cross-reacting substances may occur. Not for Medico-Legal Purposes. This test has not been cleared by the [place] FDA. Performance characteristics of this test were determined by [facility] in accordance with CLIA requirements. This laboratory is qualified under CLIA to perform high-complexity testing. U Tricyclics Screen None Detected None Detected [facility] Comment: The tricyclics screen detects tricyclic antidepressants at concentrations >=150 ng/mL. Not all tricyclics cross-react equally with the antibody used in this screen. A ? Presumptive Positive? result indicates that the screening result was positive but has not yet been confirmed by a highly-specific method. As with any screen, occasional false positive results from cross-reacting substances may occur. Not for Medico-Legal Purposes. This test has not been cleared by the [place] FDA. Performance characteristics of this test were determined by [facility] in accordance with CLIA requirements. This laboratory is qualified under CLIA to perform high-complexity testing. U Ethanol Screen None Detected None Detected [facility] Comment:This urine ethanol a ssay detects ethanol at concentrations >/= 100 mg/L. U Amphetamines Screen None Detected None Detected [facility] Comment: The amphetamine screen detects d-amphetamine and d-methamphetamine at concentrations >300 ng/mL. A ? Presumptive Positive? result indicates that the screening result was positive but has not yet been confirmed by a highly-specific method. As with any screen, occasional false positive results from cross-reacting substances may occur. Not for Medico-Legal Purposes. U Creat TEE 39 >=20 mg/dL [facility] U Chromate TEE <2.0 <=49.9 mg/L [facility] U Nitrite TEE <50 <=499 mg/L [facility] U Oxidant TEE 12 <=199 mg/L [facility] U pH TEE 5.4 3.0 - 10.9 [facility] U Adulterants Screen None Detected None Detected [facility] Comment:No adulteration of t his urine sample was detected. Urine 06/15/2023 4:46 PM EDT 06/15/2023 5:30 PM EDT Narrative Resulting Agency Comment Spec In Lab Eufemia Copeland MD CHEMISTRY ORDERABL ES Performing Organization Address [facility] Co de Phone Number [facility] [place] [address] * Rapid Drug Screen, Urine (TEE Request) (06/15/2023 4:46 PM EDT) TEE Conf Requested No [facility] TEE Requested See Comment [facility] Comment:Refer to Rapid Drug Screen w/o Confirmation, Urine for results. Urine 06/15/2023 4:46 PM EDT 06/15/2023 5:30 PM EDT Narrative Resulting Agency Comment Spec In Lab Eufemia Copeland MD URINE ORDERABLES Performing Organization Address [facility] Co de Phone Number [facility] [place] [address] * (ABNORMAL) Basic Metabolic Panel (non-fasting) (06/15/2023 2:29 PM EDT) Glucose Lvl 141 65 - 199 mg/dL [facility] Comment:Diabetes: >=200 mg/d L plus symptoms BUN 31(H) 8 - 18 mg/dL [facility] Creatinine 1.21(H) 0.70 - 1.20 mg/dL [facility] Sodium 132(L) 135 - 145 mmol/L [facility] Potassium 3.0(Criti edy) 3.5 - 5.0 mmol/L [facility] Comment: Called by: dm, Read back by: qamar ren, Date/Time:06/15/23 15:18. Please note: ??Patients with WBC >100,000 may have falsely elevated Potassium levels. ??For accurate Potassium quantification in these patients send serum separator tube (gold top) for subsequent determinations. ??Contact the Clinical Chemistry Laboratory if there are any questions. Chloride 89(L) 98 - 107 mmol/L [facility] CO2 32(H) 22 - 31 mmol/L [facility] Anion Gap 11 5 - 15 mmol/L [facility] Calcium 9.6 8.5 - 10.5 mg/dL [facility] Estimated GFR 53(L) >=60 mL/min/1. 73 m?? [facility] Comment: This patient's estimated GFR was [...] and symptoms in addition to eGFR. Blood 06/15/2023 2:29 PM EDT 06/15/2023 2:40 PM EDT Narrative Resulting Agency Comment Spec In Lab Eufemia Copeland MD CHEMISTRY ORDERABL ES [facility] [place] [address] * Heparin (unfractionated) Level (06/15/2023 2:29 PM EDT) Heparin UFH Level 0.93 IU/mL [facility] Comment: Heparin (anti-Xa) levels should be [...] cardiac surgery): 0.1 ? 0.3 IU/mL Blood 06/15/2023 2:29 PM EDT 06/15/2023 2:40 PM EDT Narrative Resulting Agency Comment Spec In Lab Terrence Keating MD HEMATOLOGY ORDERABLE S Performing Organization Address City/[facility]/ZIP Co de Phone Number [facility] [place] [address] * EKG 12 Lead (06/15/2023 10:50 AM EDT) Ventricular rate 55 BPM MUSE SYSTEM Atrial Rate 55 BPM MUSE SYSTEM P-R Interval 184 ms MUSE SYSTEM QRS Duration 96 ms MUSE SYSTEM Q-T Interval 590 ms MUSE SYSTEM QTC Calculated (Bezet) 565 ms MUSE SYSTEM Calculated P [place] 54 degrees MUSE SYSTEM Calculated R [place] 54 degrees MUSE SYSTEM Calculated T [place] 13 degrees MUSE SYSTEM INTERPRETATION Sinus bradycardia with sinus arrhythmia Marked ST abnormality, possible inferior subendocardial injury Long QT interval Abnormal ECG When compared with ECG of 15-JUN-2023 02:17, Nonspecific T wave abnormality has replaced inverted T waves in Lateral leads Confirmed by Kai Haider ([id number]) on 06/16/2023 3:52:04 PM MUSE SYSTEM 06/15/2023 10:5 0 AM EDT 06/16/2023 3:52 PM EDT Terrence Keating MD ECG ORDERABLES Performing Organization Address [facility] Co de Phone Number MUSE SYSTEM * (ABNORMAL) Basic Metabolic Panel (non-fasting) (06/15/2023 8:18 AM EDT) Glucose Lvl 113 65 - 199 mg/dL [facility] Comment:Diabetes: >=200 mg/d L plus symptoms BUN 29(H) 8 - 18 mg/dL [facility] Creatinine 1.22(H) 0.70 - 1.20 mg/dL [facility] Sodium 134(L) 135 - 145 mmol/L [facility] Potassium 2.5(Criti edy) 3.5 - 5.0 mmol/L [facility] Comment: Called by: cheryl, Read back by: eamon mckeon, Date/Time:06/15/23 09:34. Please note: ??Patients with WBC >100,000 may have falsely elevated Potassium levels. ??For accurate Potassium quantification in these patients send serum separator tube (gold top) for subsequent determinations. ??Contact the Clinical Chemistry Laboratory if there are any questions. Chloride 89(L) 98 - 107 mmol/L [facility] CO2 30 22 - 31 mmol/L [facility] Anion Gap 15 5 - 15 mmol/L [facility] Calcium 10.0 8.5 - 10.5 mg/dL [facility] Estimated GFR 53(L) >=60 mL/min/1. 73 m?? [facility] Comment: This patient's estimated GFR was [...] and symptoms in addition to eGFR. Blood 06/15/2023 8:18 AM EDT 06/15/2023 8:34 AM EDT Narrative Resulting Agency Comment Spec In Lab Eufemia Copeland MD CHEMISTRY ORDERABL ES [facility] [place] [address] * Heparin (unfractionated) Level (06/15/2023 8:18 AM EDT) Heparin UFH Level 0.70 IU/mL [facility] Comment: Heparin (anti-Xa) levels should be [...] cardiac surgery): 0.1 ? 0.3 IU/mL Blood 06/15/2023 8:18 AM EDT 06/15/2023 8:35 AM EDT Narrative Resulting Agency Comment Spec In Lab Terrence Keating MD HEMATOLOGY ORDERABLE S Performing Organization Address City/State/[facility] Co de Phone Number [facility] [place] [address] * (ABNORMAL) Troponin (06/15/2023 8:18 AM EDT) Troponin-T HS 33(H) <=14 ng/L [facility] Comment: This patient's troponin T [...] troponin value can be found in the [facility] Test Catalog Troponin - [facility] Test Catalog Reference: Fourth [place] Definition of Myocardial Infarction. Journal of the [place] [employer] 2018;72:8656-7491 Blood 06/15/2023 8:18 AM EDT 06/15/2023 8:34 AM EDT Narrative Resulting Agency Comment Spec In Lab Terrence Keating MD CHEMISTRY ORDERABLES [facility] [place] [address] * Differential, Automated (06/15/2023 4:28 AM EDT) Neutrophils % 48.0 % [facility] Neutr Abs (ANC) 3.20 1.70 - 6.10 x10(3)/[facility] Lymphocytes % 35.8 % [facility] Lymphocytes Abs 2.4 0.9 - 3.2 x10(3)/[facility] Monocytes % 11.4 % [facility] Monocyte Abs 0.8 0.3 - 0.9 x10(3)/[facility] Eosinophils % 3.7 % [facility] Eosinophils Abs 0.2 0.0 - 0.4 x10(3)/[facility] Basophils % 1.0 % [facility] Basophils Abs 0.1 0.0 - 0.1 x10(3)/[facility] Immature Gran % 0.10 % [facility] Comment: Immature granulocytes(IG's)percentage and absolute count will include metamyelocytes, myelocytes, and promyelocytes. Blood smears from CBCs yielding IG's will be scanned manually for concordance. If this scan disagrees with the automated IG or if promyelocytes are noted, a manual differential will be performed. Shonda Gran Abs 0.01 0.00 - 0.04 x10(3)/[facility] Blood 06/15/2023 4:28 AM EDT 06/15/2023 4:37 AM EDT Narrative Resulting Agency Comment Spec In Lab Terrence Keating MD HEMATOLOGY ORDERABLE S [facility] [place] [address] * (ABNORMAL) Hemogram (06/15/2023 4:28 AM EDT) WBC 6.7 4.0 - 9.5 x10(3)/[facility] RBC 5.09 4.00 - 5.21 x10(6)/[facility] Hemoglobin 16.1(H) 11.7 - 15.5 g/dL [facility] Hematocrit 48.2(H) 35.7 - 45.8 % [facility] MCV 94.7(H) 82.6 - 94.4 [facility] MCH 31.6 27.1 - 32.0 pg [facility] MCHC 33.4 31.7 - 35.0 g/dL [facility] Platelets 253 145 - 357 x10(3)/[facility] RDWSD 45.5 37.0 - 46.0 [facility] RDWCV 13.0 11.5 - 14.1 % [facility] MPV 10.6 7.6 - 12.9 [facility] nRBC % Auto 0.0 % [facility] nRBC Abs Auto 0.000 0.000 - 0.000 x10(3)/[facility] Blood 06/15/2023 4:28 AM EDT 06/15/2023 4:37 AM EDT Narrative Resulting Agency Comment Spec In Lab Terrence Keating MD HEMATOLOGY ORDERABLE S [facility] [place] [address] * (ABNORMAL) Troponin (06/15/2023 4:28 AM EDT) Pathologist [facility] Troponin-T HS 34(H) <=14 ng/L [facility] Comment: This patient's troponin T [...] troponin value can be found in the [facility] Test Catalog Troponin - [facility] Test Catalog Reference: Fourth [place] Definition of Myocardial Infarction. Journal of the [place] [employer] 2018;72:2776-0275 Blood 06/15/2023 4:28 AM EDT 06/15/2023 4:37 AM EDT Narrative Resulting Agency Comment Spec In Lab Terrence Keating MD CHEMISTRY ORDERABLES [facility] [place] [address] * (ABNORMAL) Prothrombin Time (06/15/2023 4:28 AM EDT) PT 12.7(H) 9.4 - 12.5 sec [facility] INR 1.1 [facility] Comment: An INR <2.0 indicates adequate procoagulant activity for hemostasis in most patients without underlying bleeding disorders, though the INR may not adequately reflect hemostatic capacity in patients with liver disease and synthetic impairment. The recommended target INR range for therapeutic anticoagulation is 2.0 ? 3.0 for most applications, though lower and higher ranges may be appropriate depending on clinical circumstances. Blood 06/15/2023 4:28 AM EDT 06/15/2023 4:37 AM EDT Narrative Resulting Agency Comment Spec In Lab Terrence Keating MD HEMATOLOGY ORDERABLE S Performing Organization Address City/[facility]/ZIP Co de Phone Number [facility] [place] [address] * (ABNORMAL) Hepatic Function Panel (06/15/2023 4:28 AM EDT) Total Protein 7.5 6.1 - 8.0 g/dL [facility] Albumin 4.3 3.2 - 5.2 g/dL [facility] AST 32(H) 0 - 30 unit/L [facility] ALT 26 0 - 30 unit/L [facility] Alk Phos 70 35 - 105 unit/L [facility] Total Bilirubin 0.8 0.2 - 1.3 mg/dL [facility] Bili, Direct 0.1 0.0 - 0.3 mg/dL [facility] Blood 06/15/2023 4:28 AM EDT 06/15/2023 4:37 AM EDT Narrative Resulting Agency Comment Spec In Lab Terrence Keating MD CHEMISTRY ORDERABLES Performing Organization Address City/[facility]/ZIP Co de Phone Number [facility] [place] [address] * (ABNORMAL) pro-Brain Natriuretic Peptide (06/15/2023 4:28 AM EDT) ProBNP 1,953(H) <=124 pg/mL [facility] Blood 06/15/2023 4:28 AM EDT 06/15/2023 4:37 AM EDT Narrative Resulting Agency Comment Spec In Lab Terrence Keating MD CHEMISTRY ORDERABLES Performing Organization Address [facility] Co de Phone Number [facility] [place] [address] * TSH (06/15/2023 4:28 AM EDT) TSH 2.98 0.27 - 4.20 mcIU/mL [facility] Comment: Reference Interval (mcIU/mL): Females: ??First Trimester: 0.23-3.88 ??Second Trimester: 0.22-3.90 ??Third Trimester: 0.44-4.66 Blood 06/15/2023 4:28 AM EDT 06/15/2023 4:37 AM EDT Narrative Resulting Agency Comment Spec In Lab Terrence Keating MD CHEMISTRY ORDERABLES Performing Organization Address [facility] Co de Phone Number [facility] [place] [address] * Phosphorus (06/15/2023 4:28 AM EDT) Phosphorus 4.4 2.5 - 4.5 mg/dL [facility] Blood 06/15/2023 4:28 AM EDT 06/15/2023 4:37 AM EDT Narrative Resulting Agency Comment Spec In Lab Terrence Keating MD CHEMISTRY ORDERABLES Performing Organization Address [facility] Co de Phone Number [facility] [place] [address] * (ABNORMAL) Magnesium (06/15/2023 4:28 AM EDT) Magnesium 1.22(H) 0.69 - 1.07 mmol/L [facility] Blood 06/15/2023 4:28 AM EDT 06/15/2023 4:37 AM EDT Narrative Resulting Agency Comment Spec In Lab Terrence Keating MD CHEMISTRY ORDERABLES Performing Organization Address City/[facility]/ZIP Co de Phone Number [facility] [place] [address] * Calcium (06/15/2023 4:28 AM EDT) Calcium 9.7 8.5 - 10.5 mg/dL [facility] Blood 06/15/2023 4:28 AM EDT 06/15/2023 4:37 AM EDT Narrative Resulting Agency Comment Spec In Lab Terrence Keating MD CHEMISTRY ORDERABLES Performing Organization Address [facility] Co de Phone Number [facility] [place] [address] * (ABNORMAL) Basic Metabolic Panel (non-fasting) (06/15/2023 4:28 AM EDT) Glucose Lvl 112 65 - 199 mg/dL [facility] Comment:Diabetes: >=200 mg/d L plus symptoms BUN 30(H) 8 - 18 mg/dL [facility] Creatinine 1.24(H) 0.70 - 1.20 mg/dL [facility] Sodium 134(L) 135 - 145 mmol/L [facility] Potassium 2.7(Criti edy) 3.5 - 5.0 mmol/L [facility] Comment: Called by: , Read back by: Olive Hernandez, Date/Time:06/15/23 05:16. Please note: ??Patients with WBC >100,000 may have falsely elevated Potassium levels. ??For accurate Potassium quantification in these patients send serum separator tube (gold top) for subsequent determinations. ??Contact the Clinical Chemistry Laboratory if there are any questions. Chloride 90(L) 98 - 107 mmol/L [facility] CO2 28 22 - 31 mmol/L [facility] Anion Gap 16(H) 5 - 15 mmol/L [facility] Calcium 9.7 8.5 - 10.5 mg/dL [facility] Estimated GFR 52(L) >=60 mL/min/1. 73 m?? [facility] Comment: This patient's estimated GFR was [...] and symptoms in addition to eGFR. Blood 06/15/2023 4:28 AM EDT 06/15/2023 4:37 AM EDT Narrative Resulting Agency Comment Spec In Lab Terrence Keating MD CHEMISTRY ORDERABLES [facility] [place] [address] * EKG 12 Lead (06/15/2023 2:17 AM EDT) Ventricular rate 57 BPM MUSE SYSTEM Atrial Rate 57 BPM MUSE SYSTEM P-R Interval 200 ms MUSE SYSTEM QRS Duration 94 ms MUSE SYSTEM Q-T Interval 606 ms MUSE SYSTEM QTC Calculated (Bezet) 591 ms MUSE SYSTEM Calculated P [place] 66 degrees MUSE SYSTEM Calculated R [place] 74 degrees MUSE SYSTEM Calculated T [place] -33 degrees MUSE SYSTEM INTERPRETATION Sinus bradycardia Possible Lateral infarct (cited on or before 17-APR-2023) Marked ST abnormality, possible inferior subendocardial injury Prolonged QTc Abnormal ECG When compared with ECG of 20-APR-2023 10:23, Nonspecific T wave changes QT has lengthened Confirmed by fellow MD Hansa, Sindhu ([id number]) on 06/15/2023 4:36:19 PM Confirmed by MD Angelo Danette ([id number]) on 06/15/2023 4:51:21 PM MUSE SYSTEM 06/15/2023 2:17 AM EDT 06/15/2023 4:51 PM EDT Terrence Keating MD ECG ORDERABLES [employer] SYSTEM documented in this encounter Visit Diagnoses Diagnosis Paroxysmal atrial fibrillation Atrial fibrillation Chest pain, unspecified type NSTEMI (non-ST elevated myocardial infarction) Acute myocardial infarction, subendocardial infarction, episode of care unspecified Lower abdominal pain Abdominal pain, other specified site Mesenteric artery stenosis Stricture of artery Heart failure with preserved ejection fraction, unspecified HF chronicity Chronic kidney disease, unspecified CKD stage NSTEMI (non-ST elevated myocardial infarction) Acute myocardial infarction, subendocardial infarction, episode of care unspecified documented in this encounter Admitting Diagnoses Diagnosis NSTEMI (non-ST elevated myocardial infarction) Acute myocardial infarction, subendocardial infarction, episode of care unspecified documented in this encounter Administered Medications Inactive Administered Medications - up to 3 most recent administrations Medication Order MAR Action Action Date Dose Rate Site acetaminophen (Tylenol) tablet 650 mg 650 mg, Oral, EVERY 6 HOURS PRN, Starting on 07/05/23 at 1522, Until Wed07/09/23 at 1844, Pain, Maximum dose of acetaminophen is 4,000 mg from all sources in 24 hours. When ordered for pain, acetaminophen should be given even when other ordered pain medications are indicated., Routine Given 07/05/2023 3:42 PM EDT 650 mg albuteroL (Proventil, Ventolin) (2.5 mg/3 mL) (0.083 %) nebulizer solution 2.5 mg 2.5 mg, Nebulization, EVERY 4 HOURS PRN, Starting on Wed07/04/23 at 0857, Until Wed07/09/23 at 1844, Wheezing, Routine Given 07/04/2023 1:09 PM EDT 2.5 mg Given 07/04/2023 9:02 AM EDT 2.5 mg alum-mag hydroxide-simeth (Maalox) (40 mg-40 mg-4 mg/mL) oral liquid 10 mL 10 mL, Oral, ONCE, 1 dose, On Wed07/04/23 at 1245, Routine Given 07/04/2023 11:59 AM EDT 10 mLs amLODIPine (Norvasc) tablet 2.5 mg 2.5 mg, Oral, DAILY, First dose on Wed06/15/23 at 0900, Until Discontinued, Routine Given 07/09/2023 9:31 AM E DT 2.5 mg Given 07/08/2023 8:56 AM EDT 2.5 mg Given 07/07/2023 8:54 AM EDT 2.5 mg apixaban (Eliquis) tablet 5 mg 5 mg, Oral, 2 TIMES DAILY, First dose on Wed06/16/23 at 2100, Until Discontinued, Anticoagulant, Routine, Restricted anticoagulant, choose the most appropriate response: Appoved indication of DVT and/or PE Given 06/22/2023 9:19 PM EDT 5 mg Given 06/22/2023 8:58 AM EDT 5 mg Given 06/21/2023 8:23 PM EDT 5 mg apixaban (Eliquis) tablet 5 mg 5 mg, Oral, 2 TIMES DAILY, First dose on Wed06/24/23 at 2115, Until Discontinued, Anticoagulant, Routine, Restricted anticoagulant, choose the most appropriate response: Approved indication of non-valvular atrial fibrillation Given 06/28/2023 9:36 AM EDT 5 mg Given 06/27/2023 8:28 PM EDT 5 mg Given 06/27/2023 9:28 AM EDT 5 mg apixaban (Eliquis) tablet 5 mg 5 mg, Oral, 2 TIMES DAILY, First dose on Wed07/09/23 at 2100, Until Discontinued, Anticoagulant, Routine, apixaban (Eliquis) Indication: Non-Valvular Atrial Fibrillation aspirin EC tablet 81 mg 81 mg, Oral, DAILY, First dose on Wed06/16/23 at 0900, Until Discontinued, Routine Given 07/03/2023 8:29 AM EDT 81 mg Given 07/02/2023 8:21 AM EDT 81 mg Given 07/01/2023 9:05 AM EDT 81 mg atorvastatin (Lipitor) tablet 40 mg 40 mg, Oral, EVERY EVENING, First dose on Wed06/15/23 at 1700, Until Discontinued, Routine Given 07/08/2023 5:08 PM EDT 40 mg Given 07/07/2023 4:56 PM EDT 40 mg Given 07/06/2023 5:49 PM EDT 40 mg clopidogreL (Plavix) tablet 300 mg 300 mg, Oral, ONCE, 1 dose, On Wed07/02/23 at 1415, STAT Given 07/02/2023 3:16 PM EDT 300 mg clopidogreL (Plavix) tablet 75 mg 75 mg, Oral, DAILY, First dose on 07/03/23 at 0900, Until Discontinued, Routine Given 07/09/2023 9:30 AM EDT 75 mg Given 07/08/2023 8:55 AM EDT 75 mg Given 07/07/2023 8:54 AM EDT 75 mg diclofenac (Voltaren) gel Topical (Top), 4 TIMES DAILY, First dose on 07/04/23 at 1000, 4 doses, Last dose on 07/04/23 at 2100, Apply topically to right knee. Total dose not to exceed 32 grams per day over all affected joints. Doses should be measured using the dosing cards supplied with the product., Where is this medication being applied? Please also specify in administration instructions. Knee, Dose of medication being applied? 4 gram dose Given 07/04/2023 4:45 PM EDT 8 g Given 07/04/2023 1:09 PM EDT 8 g Given 07/04/2023 9:44 AM EDT 8 g diphenhydrAMINE (Benadryl) (50 mg/mL) injection 25 mg 25 mg, Intravenous, ONCE, 1 dose, On Wed06/16/23 at 1115, Routine Given 06/16/2023 10:40 AM EDT 25 mg diphenhydrAMINE (Benadryl) (50 mg/mL) injection 25 mg 25 mg, Intravenous, ONCE, 1 dose, On Aura 06/17/23 at 1415, Routine Given 06/17/2023 1:40 PM EDT 25 mg diphenhydrAMINE (Benadryl) (50 mg/mL) injection 25 mg 25 mg, Intravenous, ONCE, 1 dose, On 06/19/23 at 0630, Routine Given 06/19/2023 5:50 AM EDT 25 mg diphenhydrAMINE (Benadryl) (50 mg/mL) injection 25 mg 25 mg, Intravenous, ONCE, 1 dose, On Tu06/22/23 at 2330, Routine Given 06/22/2023 11:25 PM EDT 25 mg diphenhydrAMINE (Benadryl) (50 mg/mL) injection 25 mg 25 mg, Intravenous, ONCE, 1 dose, On Wed07/01/23 at 1300, Routine Given 07/01/2023 12:37 PM EDT 25 mg diphenhydrAMINE/aluminum-magnesium hydroxide with simethicone/lidocaine (BMX) (6.67 mg-0.83 mg-13.33 mg-1.33 mg/mL) oral liquid 5 mL 5 mL, Oral, ONCE, 1 dose, On Wed06/22/23 at 1145, Each 5 mL contains equal parts of diphenhydramine (BENADYL), aluminum-magnesium hydroxide w/ simethicone (MAALOX), and lidocaine (XYLOCAINE), Routine Given 06/22/2023 10:49 AM EDT [address] (Cymbalta) capsule 60 mg 60 mg, Oral, DAILY, First dose on Wed06/15/23 at 0900, Until Discontinued, Routine Given 07/09/2023 9:31 AM EDT 60 mg Given 07/08/2023 8:56 AM EDT 60 mg Given 07/07/2023 8:53 AM EDT 60 mg furosemide (Lasix) (10 mg/mL) injection 40 mg 40 mg, Intravenous, ONCE, 1 dose, On Wed06/16/23 at 1615 Given 06/16/2023 5:07 PM EDT 40 mg furosemide (Lasix) (10 mg/mL) injection 40 mg 40 mg, Intravenous, ONCE, 1 dose, On Wed06/17/23 at 0845 Given 06/17/2023 9:02 AM EDT 40 mg furosemide (Lasix) (10 mg/mL) injection 40 mg 40 mg, Intravenous, ONCE, 1 dose, On Wed06/18/23 at 1045 Given 06/18/2023 10:55 AM EDT 40 mg furosemide (Lasix) (10 mg/mL) injection 40 mg 40 mg, Intravenous, ONCE, 1 dose, On Wed06/18/23 at 1645 Given 06/18/2023 4:47 PM EDT 40 mg furosemide (Lasix) (10 mg/mL) injection 40 mg 40 mg, Intravenous, 2 TIMES DAILY, First dose on Wed06/19/23 at 0945, Until Discontinued Given 06/19/2023 5:55 PM EDT 4 0 mg Given 06/19/2023 9:39 AM EDT 40 mg furosemide (Lasix) (10 mg/mL) injection 40 mg 40 mg, Intravenous, 2 TIMES DAILY, 2 doses, First dose (after last modification) on 06/20/23 at 0900, Last dose on 06/20/23 at 1700 Given 06/20/2023 8:30 AM EDT 40 mg furosemide (Lasix) (10 mg/mL) injection 40 mg 40 mg, Intravenous, EVERY 8 HOURS, 3 doses, First dose (after last modification) on 06/20/23 at 1630, Last dose on 06/21/23 at 0830 Given 06/20/2023 11:48 PM EDT 40 mg Given 06/20/2023 4:01 PM EDT 40 mg furosemide (Lasix) (10 mg/mL) injection 40 mg 40 mg, Intravenous, ONCE, 1 dose, On Aura 06/24/23 at 1500 Given 06/24/2023 4:23 PM EDT 40 mg furosemide (Lasix) (10 mg/mL) injection 40 mg 40 mg, Intravenous, ONCE, 1 dose, On 06/26/23 at 0945 Given 06/26/2023 9:47 AM EDT 40 mg furosemide (Lasix) (10 mg/mL) injection 40 mg 40 mg, Intravenous, ONCE, 1 dose, On 06/27/23 at 0800 Given 06/27/2023 9:30 AM EDT 40 mg furosemide (Lasix) (10 mg/mL) injection 40 mg 40 mg, Intravenous, ONCE, 1 dose, On 06/28/23 at 2000 Given 06/28/2023 8:19 PM EDT 40 mg furosemide (Lasix) (10 mg/mL) injection 40 mg 40 mg, Intravenous, ONCE, 1 dose, On 06/29/23 at 1745 Given 06/29/2023 5:33 PM EDT 40 mg furosemide (Lasix) (10 mg/mL) injection 60 mg 60 mg, Intravenous, ONCE, 1 dose, On Aura 06/24/23 at 2030 Given 06/24/2023 8:25 PM EDT 60 mg gabapentin (Neurontin) capsule 600 mg 600 mg, Oral, NIGHTLY, First dose on Wed06/15/23 at 0200, Until Discontinued, Routine Given 07/08/2023 9:16 PM E DT 600 mg Given 07/07/2023 9:37 PM EDT 600 mg Given 07/06/2023 8:51 PM EDT 600 mg heparin (porcine) 50 units/mL in dextrose 5% 500 mL infusion 0-5,000 Units/hr (0-100 mL/hr), Intravenous, CONTINUOUS, Starting on Wed06/15/23 at 0245, Until Wed06/16/23 at 1354, Begin infusion at 1,000 units per hr [...] Heparin UFH Level - Per Protocol, Routine New Bag 06/16/2023 6:05 AM EDT 800 Units/hr 16 mL/hr Rate/Dose Change 06/15/2023 3:01 PM EDT 800 Units/hr 16 mL /hr Rate/Dose Verify 06/15/2023 8:00 AM EDT 1,000 Units/hr 20 mL/hr heparin (porcine) 50 units/mL in dextrose 5% 500 mL infusion 0-5,000 Units/hr (0-100 mL/hr), Intravenous, CONTINUOUS, Starting on Wed06/22/23 at 2230, Until Wed06/24/23 at 2020, Begin infusion at 1,000 units per hr [...] Level - Per Protocol, Routine Rate/Dose Verify 06/24/2023 5:15 AM EDT 500 Units/hr 10 mL/hr Rate/Dose Verify 06/23/2023 10:12 PM EDT 500 Units/hr 10 m L/hr Rate/Dose Change 06/23/2023 3:34 PM EDT 500 Units/hr 10 mL /hr heparin (porcine) 50 units/mL in dextrose 5% 500 mL infusion 0-5,000 Units/hr (0-100 mL/hr), Intravenous, CONTINUOUS, Starting on 06/28/23 at 2100, Until Wed07/09/23 at 1409, Begin infusion at 1,550 units per hr (15 units/kg/hr). Maximum initial infusion rate is 2,000 units/hr Infusion doses are rounded to the nearest 50 units. Target Heparin UFH Level (anti-Xa activity) = 0.3 - 0.7 international unit/mL Start adjustment schedule 6 hours after starting infusion. If Heparin UFH Level is: -?Less than 0.1 international unit/mL:?Administer PRN bolus and increase rate by 400 units per hr (4 units/kg/hr) -?0.1 - 0.19 international unit/mL:? Administer PRN bolus and increase rate by 200 units per hr (2 units/kg/hr) -?0.2 - 0.29 international unit/mL:?NO BOLUS and increase rate by 200 units per hr (2 units/kg/hr) -?0.3 - 0.7 international unit/mL:?No change -?0.71 - 0.79 international unit/mL:?NO BOLUS and decrease rate by 100 units per hr (1 units/kg/hr) -?0.8 - 0.99 international unit/mL:?NO BOLUS and decrease rate by 200 units per hr (2 units/kg/hr) -?Greater than or equal to 1.00 international unit/mL:?Hold infusion for 60 minutes then decrease rate [...] Heparin UFH Level - Per Protocol, Routine New Bag 07/09/2023 6:35 AM EDT 1,050 Units/hr 21 mL/hr Rate/Dose Verify 07/09/2023 3:34 AM EDT 1,050 Units/hr 21 mL/hr Rate/Dose Verify 07/08/2023 9:21 PM EDT 1,050 Units/hr 21 mL/hr iohexoL (Omnipaque) (350 mg/mL) solution 0-200 mL 0-200 mL, Intravenous, ONCE PRN, 1 dose, Starting on Wed06/21/23 at 1539, Until Wed06/21/23 at 1539, Per Protocol, Warning Vesicant/Irritant Medication , Radiology Contrast, Routine Given 06/21/2023 3:39 PM EDT 120 mLs iohexoL (Omnipaque) (350 mg/mL) solution 0-50 mL 0-50 mL, Oral, ONCE PRN, 1 dose, Starting on Wed06/21/23 at 1539, Until Wed06/21/23 at 1539, Per Protocol, Warning Vesicant/Irritant Medication , Radiology Contrast, Routine Given 06/21/2023 3:39 PM EDT 50 mLs iohexoL (Omnipaque) radiology oral prep (50 mL of oral contrast) 240 mL, Oral, ONCE, 1 dose, On Wed06/21/23 at 1300, 8 ounce cup = 240 mL of contrast 3 hours before scan as tolerated. The patient should not eat food or drink any other liquids during the entire period in which they are drinking the contrast. Mix 1 bottle (50 mL) of Omnipaque 350 with 1 liter (1,000 mL) non-carbonated beverage (preferably water). Close cover and shake vigorously and then refrigerate, if desired. Dispose of any excess preparation in a sink. Properly dispose of container., Routine Given 06/21/2023 12:14 PM EDT 240 mLs iohexoL (Omnipaque) radiology oral prep (50 mL of oral contrast) 240 mL, Oral, ONCE, 1 dose, On Wed06/21/23 at 1330, 8 ounce cup = 240 mL of contrast 2 hours before scan as tolerated. The patient should not eat food or drink any other liquids during the entire period in which they are drinking the contrast. Mix 1 bottle (50 mL) of Omnipaque 350 with 1 liter (1,000 mL) non-carbonated beverage (preferably water). Close cover and shake vigorously and then refrigerate, if desired. Dispose of any excess preparation in a sink. Properly dispose of container., Routine Given 06/21/2023 12:45 PM EDT 240 mLs iohexoL (Omnipaque) radiology oral prep (50 mL of oral contrast) 240 mL, Oral, ONCE, 1 dose, On Wed06/21/23 at 1430, 8 ounce cup = 240 mL of contrast 1 hours before scan as tolerated. The patient should not eat food or drink any other liquids during the entire period in which they are drinking the contrast. Mix 1 bottle (50 mL) of Omnipaque 350 with 1 liter (1,000 mL) non-carbonated beverage (preferably water). Close cover and shake vigorously and then refrigerate, if desired. Dispose of any excess preparation in a sink. Properly dispose of container., Routine Given 06/21/2023 1:30 PM EDT 240 mLs iohexoL (Omnipaque) radiology oral prep (50 mL of oral contrast) 240 mL, Oral, ONCE, 1 dose, On Wed06/21/23 at 1500, 8 ounce cup = 240 mL of contrast 20 minutes before scan as tolerated. The patient should not eat food or drink any other liquids during the entire period in which they are drinking the contrast. Mix 1 bottle (50 mL) of Omnipaque 350 with 1 liter (1,000 mL) non-carbonated beverage (preferably water). Close cover and shake vigorously and then refrigerate, if desired. Dispose of any excess preparation in a sink. Properly dispose of container., Routine Given 06/21/2023 3:00 PM EDT 240 mLs ipratropium-albuteroL (Duoneb) 0.5 mg-3 mg(2.5 mg base)/3 mL nebulizer solution 3 mL 3 mL, Nebulization, EVERY 4 HOURS PRN, Starting on 07/03/23 at 1433, Until 07/04/23 at 0858, Wheezing, Routine Given 07/03/2023 9:19 PM EDT 3 mLs Given 07/03/2023 2:41 PM EDT 3 mLs isosorbide mononitrate CR (Imdur) tablet 30 mg 30 mg, Oral, EVERY MORNING, First dose on Wed06/15/23 at 0900, Until Discontinued, DO NOT CRUSH OR OPEN, Routine Given 06/18/2023 6:18 AM EDT 30 mg Given 06/17/2023 5:05 AM EDT 30 mg Given 06/16/2023 6:06 AM EDT 30 mg lactated ringers infusion 250 mL, at 1,000 mL/hr, Intravenous, CONTINUOUS, Starting on Wed06/16/23 at 1115, Until Wed06/17/23 at 1319 New Bag 06/16/2023 10:41 AM EDT 250 mLs 1000 mL/hr lactated ringers infusion 250 mL, at 1,000 mL/hr, Intravenous, CONTINUOUS, Starting on Wed06/17/23 at 1415, Until Wed06/20/23 at 0939 New Bag 06/17/2023 1:36 PM EDT 250 mLs 1000 mL/hr lactated ringers infusion 100 mL/hr, Intravenous, CONTINUOUS, Starting on Wed07/07/23 at 1415, Until Wed07/07/23 at 1548, Endoscopy (Intra-Procedure) New Bag 07/07/2023 2:10 PM EDT 100 mL/hr 100 mL/hr lidocaine (Lidoderm) 5% patch 1 patch 1 patch, Transdermal, Administer over 12 Hours, DAILY, First dose on Wed06/15/23 at 1115, Until Discontinued, Apply patch(es) for 12 hours, and then remove for 12 hours., Routine Patch Applied 06/24/2023 9:51 AM EDT 1 patch 11- Chest (Left) Patch Applied 06/23/2023 10:00 AM EDT 1 patch 06- Back Upper (Right) Patch Applied 06/22/2023 8:57 AM EDT 1 patch 12- Chest (Right) lidocaine (Lidoderm) 5% patch 1 patch 1 patch, Transdermal, Administer over 12 Hours, EVERY 24 HOURS, First dose on Wed06/22/23 at 1030, Until Discontinued, Apply patch(es) for 12 hours, and then remove for 12 hours.for neck area , Routine Patch Applied 06/24/2023 10:30 AM EDT 1 patch 03- Shoulder (Left) Patch Applied 06/23/2023 10:03 AM EDT 1 patch 12- Chest (Right) lidocaine (Lidoderm) 5% patch 1 patch 1 patch, Transdermal, Administer over 12 Hours, EVERY 24 HOURS, First dose (after last modification) on 07/04/23 at 1000, Until Discontinued, Apply patch(es) for 12 hours, and then remove for 12 hours.for right lower back, Routine Patch Applied 07/04/2023 9:03 AM EDT 1 patch 06- Back Upper (Right) magnesium sulfate 2 g in sterile water 50 mL infusion 2 g, Intravenous, ONCE, 1 dose, On 07/03/23 at 2045, Administer over 120 Minutes New Bag 07/03/2023 8:15 PM EDT 2 g 25 mL/hr melatonin tablet 6 mg 6 mg, Oral, NIGHTLY, First dose on Tu06/15/23 at 0200, Until Discontinued Given 07/08/2023 9:17 PM EDT 6 mg Given 07/07/2023 9:37 PM EDT 6 mg Given 07/06/2023 8:52 PM EDT 6 mg metoclopramide (Reglan) (5 mg/mL) injection 10 mg 10 mg, Intravenous, ONCE, 1 dose, On Wed06/16/23 at 1115, Doses greater than 10mg should be diluted into 50ml NS. Given 06/16/2023 10:40 AM EDT 10 mg metoclopramide (Reglan) (5 mg/mL) injection 10 mg 10 mg, Intravenous, ONCE, 1 dose, On Aura 06/17/23 at 1415, Doses greater than 10mg should be diluted into 50ml NS. Given 06/17/2023 1:40 PM EDT 10 mg metoclopramide (Reglan) (5 mg/mL) injection 10 mg 10 mg, Intravenous, ONCE, 1 dose, On 06/19/23 at 0630, Doses greater than 10mg should be diluted into 50ml NS. Given 06/19/2023 5:50 AM EDT 10 mg metoclopramide (Reglan) (5 mg/mL) injection 10 mg 10 mg, Intravenous, ONCE, 1 dose, On Wed06/23/23 at 0000, Doses greater than 10mg should be diluted into 50ml NS. Given 06/22/2023 11:26 PM EDT 10 mg metoclopramide (Reglan) (5 mg/mL) injection 10 mg 10 mg, Intravenous, ONCE, 1 dose, On Aura 06/24/23 at 2315, Doses greater than 10mg should be diluted into 50ml NS. Given 06/24/2023 10:58 PM EDT 10 mg metoclopramide (Reglan) (5 mg/mL) injection 10 mg 10 mg, Intravenous, ONCE, 1 dose, On Aura 07/01/23 at 1315, Doses greater than 10mg should be diluted into 50ml NS. Given 07/01/2023 12:38 PM EDT 10 mg metOLazone (Zaroxolyn) tablet 2.5 mg 2.5 mg, Oral, ONCE, 1 dose, On 07/03/23 at 0915, Routine Given 07/03/2023 8:34 AM EDT 2.5 mg metoprolol succinate XL (Toprol-XL) tablet 12.5 mg 12.5 mg, Oral, DAILY, First dose on 06/21/23 at 0900, Until Discontinued, DO NOT CRUSH OR OPEN Hold for HR <55 and Sbp <90, Routine Given 07/09/2023 9:30 AM EDT 12.5 mg Given 07/07/2023 8:54 AM EDT 12.5 mg Given 07/06/2023 9:15 AM EDT 12.5 mg metoprolol tartrate (Lopressor) tablet 12.5 mg 12.5 mg, Oral, EVERY 12 HOURS SCHEDULED (2 times per day), First dose on Aura 06/17/23 at 1415, Until Discontinued, Routine Given 06/20/2023 8:20 AM EDT 12.5 mg Given 06/19/2023 8:51 PM EDT 12.5 mg Given 06/19/2023 8:09 AM EDT 12.5 mg nitroGLYcerin (Nitrostat) disintegrating tablet 0.4 mg 0.4 mg, Sublingual, EVERY 5 MIN PRN, Starting on 06/15/23 at 0146, Until 06/19/23 at 0719, Chest pain, SL nitroglycerin may be repeated every 5 minutes as needed up to 3 doses. Please page service before giving nitro, Routine Given 06/19/2023 4:43 AM EDT 0.4 mg Given 06/19/2023 4:37 AM EDT 0.4 mg Given 06/19/2023 4:28 AM EDT 0.4 mg nitroGLYcerin (Nitrostat) disintegrating tablet 0.4 mg 0.4 mg, Sublingual, EVERY 5 MIN PRN, Starting on Wed06/22/23 at 1119, Until Wed07/09/23 at 1844, Chest pain, SL nitroglycerin may be repeated every 5 minutes as needed up to 3 doses, Routine Given 07/08/2023 9:51 AM EDT 0.4 mg Given 07/04/2023 11:43 AM EDT 0.4 mg Given 07/04/2023 11:36 AM EDT 0.4 mg ondansetron (pf) (Zofran) (2 mg/mL) injection 4 mg 4 mg, Intravenous, EVERY 8 HOURS PRN, Starting on Wed06/15/23 at 1014, Until Wed06/16/23 at 1014, Nausea Given 06/15/2023 10:40 AM EDT 4 mg Right Arm ondansetron (pf) (Zofran) (2 mg/mL) injection 4 mg 4 mg, Intravenous, EVERY 8 HOURS PRN, Starting on Wed06/29/23 at 1449, Until Wed07/09/23 at 1844, Nausea Given 07/09/2023 11:40 AM EDT 4 mg Given 07/08/2023 10:08 AM EDT 4 mg Given 07/07/2023 9:37 PM EDT 4 mg oxyCODONE-acetaminophen (Percocet) 5-325 mg per tablet 1 tablet 1 tablet, Oral, ONCE, 1 dose, On 06/26/23 at 1545, Maximum dose of acetaminophen is 4000 mg from all sources in 24 hours., Routine Given 06/26/2023 3:37 PM EDT 1 tablet oxyCODONE-acetaminophen (Percocet) 5-325 mg per tablet 1 tablet 1 tablet, Oral, ONCE, 1 dose, On 06/27/23 at 1245, Maximum dose of acetaminophen is 4000 mg from all sources in 24 hours., Routine Given 06/27/2023 12:21 PM EDT 1 tablet oxyCODONE-acetaminophen (Percocet) 5-325 mg per tablet 1 tablet 1 tablet, Oral, EVERY 6 HOURS PRN, Starting on Wed06/29/23 at 0120, Until Wed07/04/23 at 1709, Pain, Maximum dose of acetaminophen is 4000 mg from all sources in 24 hours., Routine Given 07/03/2023 9:31 PM EDT 1 tablet Given 07/03/2023 10:08 AM EDT 1 tablet Given 07/01/2023 12:39 PM EDT 1 tablet oxyCODONE-acetaminophen (Percocet) 5-325 mg per tablet 1 tablet 1 tablet, Oral, EVERY 6 HOURS PRN, Starting on Wed07/06/23 at 1020, Until Wed07/09/23 at 1844, Pain, for pain refractory to PRN acetaminophen, Maximum dose of acetaminophen is 4000 mg from all sources in 24 hours., Routine Given 07/08/2023 9:20 PM EDT 1 tablet Given 07/08/2023 8:55 AM EDT 1 tablet Given 07/07/2023 9:37 PM EDT 1 tablet pantoprazole EC (Protonix) tablet 40 mg 40 mg, Oral, DAILY, First dose on Wed06/15/23 at 0900, Until Discontinued Given 07/09/2023 9:31 AM EDT 40 mg Given 07/08/2023 8:56 AM EDT 40 mg Given 07/07/2023 8:54 AM EDT 40 mg perflutren protein-A microsphers (Optison) (0.22 mg/mL) injection 0.5 mL 0.5 mL, Intravenous, ONCE PRN, 1 dose, Starting on Wed06/22/23 at 1616, Until Wed06/22/23 at 1616, for enhancement of sub-optimal echo images, Echo Lab (Intra-Procedure), Routine Given 06/22/2023 4:16 PM EDT 0.5 mLs polyethylene glycoL (GoLYTELY) BOWEL PREP powder for solution JUG (236g diluted to 4000 mL) 2,000 mL 2,000 mL, Oral, ONCE, 1 dose, On Wed07/07/23 at 0730, To start now and drink until 1000am This package contains polyethylene glycol 236 g to be dissolved in 4000 mL., Routine Given 07/07/2023 8:49 AM EDT 2,000 mLs polyethylene glycoL (GoLYTELY) BOWEL PREP powder for solution JUG (236g diluted to 4000 mL) 4,000 mL 4,000 mL, Oral, ONCE, 1 dose, On Wed07/06/23 at 2000, - 2L golytely to start at 6pm and finish by 8pm, then 2L more golytely at 11pm to finish by 1am. Pt to drink 12oz every 10-15 minutes until the intended volume is completed. This package contains polyethylene glycol 236 g to be dissolved in 4000 mL., Routine Given 07/06/2023 8:00 PM EDT 4,000 mLs polyethylene glycoL (Miralax) packet 17 g 17 g, Oral, DAILY, First dose on Wed06/17/23 at 1100, Until Discontinued, Routine Given 07/04/2023 8:42 AM EDT 17 g Given 07/01/2023 9:04 AM EDT 17 g Given 06/30/2023 8:23 AM EDT 17 g potassium chloride 10 mEq in sterile water 100 mL infusion 10 mEq, Intravenous, EVERY HOUR, 8 doses, First dose on Wed06/15/23 at 1100, Last dose on Wed06/15/23 at 1800, Administer over 60 Minutes, Doses of 20 mEq or greater require a Central Line Warning Vesicant/Irritant Medication New Bag 06/15/2023 8:56 PM EDT 10 mEq 100 mL/hr New Bag 06/15/2023 6:53 PM EDT 10 mEq 100 mL/hr Ri ght Arm New Bag 06/15/2023 5:47 PM EDT 10 mEq 100 mL/hr potassium chloride 10 mEq in sterile water 100 mL infusion 10 mEq, Intravenous, EVERY HOUR, 8 doses, First dose (after last reorder) on Wed06/16/23 at 0900, Last dose on Wed06/16/23 at 1600, Administer over 60 Minutes, Doses of 20 mEq or greater require a Central Line Warning Vesicant/Irritant Medication New Bag 06/16/2023 4:43 PM EDT 10 mEq 100 mL/hr New Bag 06/16/2023 4:00 PM EDT 10 mEq 100 mL/hr New Bag 06/16/2023 3:31 PM EDT 10 mEq 100 mL/hr potassium chloride ER (Klor-Con M) crystal tablet 20 mEq 20 mEq, Oral, ONCE, 1 dose, On Wed06/16/23 at 0700, potassium chloride ER particle/crystal tablets (Klor-Con M) may be broken in half and each half swallowed separately. Tablets can be dissolved in ~4 ounces of water; allow ~2 minutes to dissolve, stir well and drink immediately. Do not crush, chew, or suck on tablet., Routine Given 06/16/2023 7:32 AM EDT 20 mEq potassium chloride ER (Klor-Con M) crystal tablet 20 mEq 20 mEq, Oral, ONCE, 1 dose, On Wed07/04/23 at 0930, potassium chloride ER particle/crystal tablets (Klor-Con M) may be broken in half and each half swallowed separately. Tablets can be dissolved in ~4 ounces of water; allow ~2 minutes to dissolve, stir well and drink immediately. Do not crush, chew, or suck on tablet., Routine Given 07/04/2023 8:48 AM EDT 20 mEq potassium chloride ER (Klor-Con M) crystal tablet 40 mEq 40 mEq, Oral, ONCE, 1 dose, On Wed06/15/23 at 0845, potassium chloride ER particle/crystal tablets (Klor-Con M) may be broken in half and each half swallowed separately. Tablets can be dissolved in ~4 ounces of water; allow ~2 minutes to dissolve, stir well and drink immediately. Do not crush, chew, or suck on tablet., Routine Given 06/15/2023 8:58 AM EDT 40 mEq potassium chloride ER (Klor-Con M) crystal tablet 40 mEq 40 mEq, Oral, ONCE, 1 dose, On Wed06/15/23 at 1045, potassium chloride ER particle/crystal tablets (Klor-Con M) may be broken in half and each half swallowed separately. Tablets can be dissolved in ~4 ounces of water; allow ~2 minutes to dissolve, stir well and drink immediately. Do not crush, chew, or suck on tablet., Routine Given 06/15/2023 2:58 PM EDT 40 mEq potassium chloride ER (Klor-Con M) crystal tablet 40 mEq 40 mEq, Oral, ONCE, 1 dose, On Wed06/16/23 at 0515, potassium chloride ER particle/crystal tablets (Klor-Con M) may be broken in half and each half swallowed separately. Tablets can be dissolved in ~4 ounces of water; allow ~2 minutes to dissolve, stir well and drink immediately. Do not crush, chew, or suck on tablet., Routine Given 06/16/2023 6:06 AM EDT 40 mEq potassium chloride ER (Klor-Con M) crystal tablet 40 mEq 40 mEq, Oral, ONCE, 1 dose, On Wed06/16/23 at 1045, potassium chloride ER particle/crystal tablets (Klor-Con M) may be broken in half and each half swallowed separately. Tablets can be dissolved in ~4 ounces of water; allow ~2 minutes to dissolve, stir well and drink immediately. Do not crush, chew, or suck on tablet., Routine Given 06/16/2023 11:24 AM EDT 40 mEq potassium chloride ER (Klor-Con M) crystal tablet 40 mEq 40 mEq, Oral, ONCE, 1 dose, On Wed06/16/23 at 1345, potassium chloride ER particle/crystal tablets (Klor-Con M) may be broken in half and each half swallowed separately. Tablets can be dissolved in ~4 ounces of water; allow ~2 minutes to dissolve, stir well and drink immediately. Do not crush, chew, or suck on tablet., Routine Given 06/16/2023 2:13 PM EDT 40 mEq potassium chloride ER (Klor-Con M) crystal tablet 40 mEq 40 mEq, Oral, ONCE, 1 dose, On Wed06/16/23 at 1615, potassium chloride ER particle/crystal tablets (Klor-Con M) may be broken in half and each half swallowed separately. Tablets can be dissolved in ~4 ounces of water; allow ~2 minutes to dissolve, stir well and drink immediately. Do not crush, chew, or suck on tablet., Routine Given 06/16/2023 5:07 PM EDT 40 mEq potassium chloride ER (Klor-Con M) crystal tablet 40 mEq 40 mEq, Oral, ONCE, 1 dose, On Aura 06/17/23 at 1700, potassium chloride ER particle/crystal tablets (Klor-Con M) may be broken in half and each half swallowed separately. Tablets can be dissolved in ~4 ounces of water; allow ~2 minutes to dissolve, stir well and drink immediately. Do not crush, chew, or suck on tablet., Routine Given 06/17/2023 4:22 PM EDT 40 mEq potassium chloride ER (Klor-Con M) crystal tablet 40 mEq 40 mEq, Oral, ONCE, 1 dose, On Wed06/19/23 at 0945, potassium chloride ER particle/crystal tablets (Klor-Con M) may be broken in half and each half swallowed separately. Tablets can be dissolved in ~4 ounces of water; allow ~2 minutes to dissolve, stir well and drink immediately. Do not crush, chew, or suck on tablet., Routine Given 06/19/2023 9:39 AM EDT 40 mEq potassium chloride ER (Klor-Con M) crystal tablet 40 mEq 40 mEq, Oral, ONCE, 1 dose, On Wed06/20/23 at 0730, potassium chloride ER particle/crystal tablets (Klor-Con M) may be broken in half and each half swallowed separately. Tablets can be dissolved in ~4 ounces of water; allow ~2 minutes to dissolve, stir well and drink immediately. Do not crush, chew, or suck on tablet., Routine Given 06/20/2023 6:39 AM EDT 40 mEq potassium chloride ER (Klor-Con M) crystal tablet 40 mEq 40 mEq, Oral, ONCE, 1 dose, On Wed06/25/23 at 0815, potassium chloride ER particle/crystal tablets (Klor-Con M) may be broken in half and each half swallowed separately. Tablets can be dissolved in ~4 ounces of water; allow ~2 minutes to dissolve, stir well and drink immediately. Do not crush, chew, or suck on tablet., Routine Given 06/25/2023 8:26 AM EDT 40 mEq potassium chloride ER (Klor-Con M) crystal tablet 40 mEq 40 mEq, Oral, ONCE, 1 dose, On Tu07/06/23 at 0500, potassium chloride ER particle/crystal tablets (Klor-Con M) may be broken in half and each half swallowed separately. Tablets can be dissolved in ~4 ounces of water; allow ~2 minutes to dissolve, stir well and drink immediately. Do not crush, chew, or suck on tablet., Routine Given 07/06/2023 6:16 AM EDT 40 mEq potassium chloride ER (Klor-Con M) crystal tablet 40 mEq 40 mEq, Oral, ONCE, 1 dose, On Wed07/08/23 at 2215, potassium chloride ER particle/crystal tablets (Klor-Con M) may be broken in half and each half swallowed separately. Tablets can be dissolved in ~4 ounces of water; allow ~2 minutes to dissolve, stir well and drink immediately. Do not crush, chew, or suck on tablet., Routine Given 07/08/2023 10:17 PM EDT 40 mEq potassium, sodium phosphates (Neutra-Phos) 280-160-250 mg oral packet 3 g 3 g, Oral, ONCE, 1 dose, On Wed06/17/23 at 1700, Take with full glass of water, Routine Given 06/17/2023 5:21 PM EDT 3 g ranolazine ER (Ranexa) tablet 1,000 mg 1,000 mg, Oral, 2 TIMES DAILY, First dose (after last modification) on Wed06/24/23 at 2100, Until Discontinued, DO NOT CRUSH OR OPEN. Baseline EKG required before administration., Routine, Has baseline EKG been obtained? Yes Given 07/09/2023 9:38 AM EDT 1,000 mg Given 07/08/2023 9:17 PM EDT 1,000 mg Given 07/08/2023 8:56 AM EDT 1,000 mg ranolazine ER (Ranexa) tablet 500 mg 500 mg, Oral, 2 TIMES DAILY, First dose on Wed06/22/23 at 2100, Until Discontinued, DO NOT CRUSH OR OPEN. Baseline EKG required before administration., Routine, Has baseline EKG been obtained? Yes Given 06/24/2023 9:46 AM EDT 500 mg Given 06/23/2023 8:30 PM EDT 500 mg Given 06/23/2023 11:20 AM EDT 500 mg rimegepant (Nurtec ODT) Tablet, Rapid Dissolve 75 mg 75 mg, Oral, DAILY, First dose on Wed06/15/23 at 0900, Until Discontinued Given 06/21/2023 9:19 AM EDT 75 mg Given 06/20/2023 8:22 AM EDT 75 mg Given 06/18/2023 2:44 PM EDT 75 mg rimegepant (Nurtec ODT) Tablet, Rapid Dissolve 75 mg 75 mg, Oral, EVERY 48 HOURS, First dose (after last modification) on Wed06/23/23 at 1000, Until Discontinued Given 06/25/2023 11:04 AM EDT 75 mg rOPINIRole (Requip) tablet 2 mg 2 mg, Oral, 2 TIMES DAILY, First dose on Wed06/15/23 at 0245, Until Discontinued, Routine Given 07/09/2023 9:31 AM EDT 2 mg Given 07/08/2023 9:16 PM EDT 2 mg Given 07/08/2023 8:56 AM EDT 2 mg senna-docusate (Pericolace) 8.6-50 mg per tablet 2 tablet 2 tablet, Oral, 2 TIMES DAILY, First dose on Wed06/17/23 at 1100, Until Discontinued, Routine Given 07/09/2023 9:00 AM EDT 2 tablets Given 07/08/2023 9:00 PM EDT 2 tablets Given 07/06/2023 9:00 PM EDT 2 tablets sertraline (Zoloft) tablet 25 mg 25 mg, Oral, DAILY, First dose on Wed06/16/23 at 1445, Until Discontinued, Routine Given 07/01/2023 9:06 AM EDT 25 mg Given 06/30/2023 9:00 AM EDT 25 mg Given 06/29/2023 10:14 AM EDT 25 mg simethicone (Gas-X Chew) 80 mg chewable tablet 80 mg 80 mg, Oral, EVERY 6 HOURS PRN, Starting on Wed06/20/23 at 0941, Until Wed07/09/23 at 1844, Cramping, Routine Given 07/08/2023 1:44 PM EDT 80 mg Given 07/06/2023 5:49 PM EDT 80 mg Given 07/05/2023 8:31 PM EDT 80 mg sodium chloride 0.9 % (flush) (BD PosiFlush Normal Saline 0.9) flush 5 mL 5 mL, Intravenous, 2 TIMES DAILY, First dose on Wed06/15/23 at 0245, Until Discontinued, Routine Given 07/09/2023 9:37 AM EDT 5 mLs Given 07/08/2023 9:16 PM EDT 5 mLs Given 07/08/2023 8:59 AM EDT 5 mLs spironolactone (Aldactone) tablet 25 mg 25 mg, Oral, DAILY, First dose on Wed06/15/23 at 0900, Until Discontinued, DO NOT SPLIT, CRUSH OR OPEN, Routine Given 07/09/2023 9:31 AM EDT 25 mg Given 07/08/2023 8:56 AM EDT 25 mg Given 07/07/2023 8:53 AM EDT 25 mg SUMAtriptan (Imitrex) tablet 50 mg 50 mg, Oral, ONCE, 1 dose, On Aura 06/24/23 at 2315, Maximum dose: 200mg in 24 hours, Routine Given 06/24/2023 10:57 PM EDT 50 mg topiramate (Topamax) tablet 100 mg 100 mg, Oral, NIGHTLY, First dose on Wed06/15/23 at 2100, Until Discontinued, Routine Given 07/08/2023 9:17 PM E DT 100 mg Given 07/07/2023 9:37 PM EDT 100 mg Given 07/06/2023 8:52 PM EDT 100 mg torsemide (Demadex) tablet 40 mg 40 mg, Oral, 2 TIMES DAILY, First dose on Wed06/15/23 at 0245, Until Discontinued, Routine Given 06/15/2023 8:56 PM EDT 40 mg Given 06/15/2023 8:59 AM EDT 40 mg torsemide (Demadex) tablet 40 mg 40 mg, Oral, ONCE, 1 dose, On 07/03/23 at 1015, Please give 1 hour AFTER metolazone dosing, Routine Given 07/03/2023 10:06 AM EDT 40 mg torsemide (Demadex) tablet 40 mg 40 mg, Oral, ONCE, 1 dose, On 07/04/23 at 0915, Routine Given 07/04/2023 8:48 AM EDT 40 mg documented in this encounter Active and Recently Administered Medications Times are shown in EDT. Scheduled Medication Order 07/07/2023 07/08/2023 07/09/2023 amLODIPine (Norvasc) tablet 2.5 mg 2.5 mg, Oral, DAILY, First dose on Wed06/15/23 at 0900, Until Discontinued, Routine 0854 (Given - Provider: Heidy Paris RN)1332 ([facility] Hold - Provider: Admin Adt - Reason: Transfer to a Procedural area)1548 ([facility] Unhold - Provider: Admin Adt) 0856 (Given - Provider: Heidy Paris RN) 0931 (Given - Provider: Heidy Paris RN) apixaban (Eliquis) tablet 5 mg 5 mg, Oral, 2 TIMES DAILY, First dose on Wed07/09/23 at 2100, Until Discontinued, Anticoagulant, Routine, apixaban (Eliquis) Indication: Non-Valvular Atrial Fibrillation atorvastatin (Lipitor) tablet 40 mg 40 mg, Oral, EVERY EVENING, First dose on Wed06/15/23 at 1700, Until Discontinued, Routine 1332 ([facility] Hold - Provider: Admin Adt - Reason: Transfer to a Procedural area)1548 ([facility] Unhold - Provider: Admin Adt)1656 (Given - Provider: Heidy Paris RN) 1708 (Given - Provider: Heidy Paris RN) clopidogreL (Plavix) tablet 75 mg (CANCELED) 75 mg, Oral, DAILY, First dose on Wed07/03/23 at 0900, Until Discontinued, Routine 0854 (Given - Provider: Heidy Paris RN)1332 ([facility] Hold - Provider: Admin Adt - Reason: Transfer to a Procedural area)1548 ([facility] Unhold - Provider: Admin Adt) 0855 (Given - Provider: Heidy Paris RN) 0930 (Given - Provider: Heidy Paris RN) DULoxetine DR (Cymbalta) capsule 60 mg 60 mg, Oral, DAILY, First dose on Wed06/15/23 at 0900, Until Discontinued, Routine 0853 (Given - Provider: Heidy Paris RN)1332 ([facility] Hold - Provider: Admin Adt - Reason: Transfer to a Procedural area)1548 ([facility] Unhold - Provider: Admin Adt) 0856 (Given - Provider: Heidy Paris RN) 0931 (Given - Provider: Heidy Paris RN) gabapentin (Neurontin) capsule 600 mg 600 mg, Oral, NIGHTLY, First dose on Wed06/15/23 at 0200, Until Discontinued, Routine 1332 (MA[facility] Hold - Provider: Admin Adt - Reason: Transfer to a Procedural area)1548 ([facility] Unhold - Provider: Admin Adt)2136 (Given - Provider: Lorena Torres, ERWIN) 2115 (Given - Provider: Machelle Busch, ERWIN) lidocaine (Lidoderm) 5% patch 1 patch 1 patch, Transdermal, Administer over 12 Hours, EVERY 24 HOURS, First dose (after last modification) on Wed07/04/23 at 1000, Until Discontinued, Apply patch(es) for 12 hours, and then remove for 12 hours.for right lower back, Routine 1000 (Not Given - Provider: Heidy Paris RN - Reason: Patient/family refused)1332 ([facility] Hold - Provider: Admin Adt - Reason: Transfer to a Procedural area)1548 ([facility] Unhold - Provider: Admin Adt) 1000 (Not Given - Provider: Heidy Paris RN - Reason: Patient/family refused) 1000 (Not Given - Provider: Heidy Paris RN - Reason: Patient/family refused) melatonin tablet 6 mg 6 mg, Oral, NIGHTLY, First dose on Wed06/15/23 at 0200, Until Discontinued 1332 ([facility] Hold - Provider: Admin Adt - Reason: Transfer to a Procedural area)1548 ([facility] [facility] Unhold - Provider: Admin Adt)2136 (Given - Provider: Lorena Torres, ERWIN) 2116 (Given - Provider: Machelle Bucsh, ERWIN) metoprolol succinate XL (Toprol-XL) tablet 12.5 mg 12.5 mg, Oral, DAILY, First dose on Wed06/21/23 at 0900, Until Discontinued, DO NOT CRUSH OR OPEN Hold for HR <55 and Sbp <90, Routine 0854 (Given - Provider: Heidy Paris RN)1332 ([facility] Hold - Provider: Admin Adt - Reason: Transfer to a Procedural area)1548 ([facility] Unhold - Provider: Admin Adt) 0900 (Not Given - Provider: Heidy Paris RN - Reason: Order parameters not met) 0930 (Given - Provider: Heidy Paris RN) pantoprazole EC (Protonix) tablet 40 mg 40 mg, Oral, DAILY, First dose on Wed06/15/23 at 0900, Until Discontinued 0854 (Given - Provider: Heidy Paris RN)1332 ([facility] Hold - Provider: Admin Adt - Reason: Transfer to a Procedural area)1548 ([facility] Unhold - Provider: Admin Adt) 0856 (Given - Provider: Heidy Paris RN) 0931 (Given - Provider: Heidy Paris RN) polyethylene glycoL (GoLYTELY) BOWEL PREP powder for solution JUG (236g diluted to 4000 mL) 2,000 mL (COMPLETED) 2,000 mL, Oral, ONCE, 1 dose, On Wed07/07/23 at 0730, To start now and drink until 1000am This package contains polyethylene glycol 236 g to be dissolved in 4000 mL., Routine 0849 (Given - Provider: Heidy Paris RN) polyethylene glycoL (Miralax) packet 17 g 17 g, Oral, DAILY, First dose on Wed06/17/23 at 1100, Until Discontinued, Routine 0900 (Not Given - Provider: Heidy Paris RN - Reason: Patient/family refused)1332 ([facility] Hold - Provider: Admin Adt - Reason: Transfer to a Procedural area)1548 ([facility] Unhold - Provider: Admin Adt) 0900 (Not Given - Provider: Heidy Paris RN - Reason: Patient/family refused) 0900 (Not Given - Provider: Heidy Paris RN - Reason: Patient/family refused) potassium chloride ER (Klor-Con M) crystal tablet 40 mEq (COMPLETED) 40 mEq, Oral, ONCE, 1 dose, On Wed07/08/23 at 2215, potassium chloride ER particle/crystal tablets (Klor-Con M) may be broken in half and each half swallowed separately. Tablets can be dissolved in ~4 ounces of water; allow ~2 minutes to dissolve, stir well and drink immediately. Do not crush, chew, or suck on tablet., Routine 2217 (Given - Provider: Machelle Busch RN) ranolazine ER (Ranexa) tablet 1,000 mg 1,000 mg, Oral, 2 TIMES DAILY, First dose (after last modification) on Wed06/24/23 at 2100, Until Discontinued, DO NOT CRUSH OR OPEN. Baseline EKG required before administration., Routine, Has baseline EKG been obtained? Yes 0853 (Given - Provider: Heidy Paris RN)1332 ([facility] Hold - Provider: Admin Adt - Reason: Transfer to a Procedural area)1548 ([facility] Unhold - Provider: Admin Adt)213 (Given - Provider: Lorena Torres, ERWIN) 0856 (Given - Provider: Heidy Paris RN)2116 (Given - Provider: Machelle Busch RN) 0938 (Given - Provider: Heidy Paris RN) rimegepant (Nurtec ODT) Tablet, Rapid Dissolve 75 mg 75 mg, Oral, EVERY 48 HOURS, First dose (after last modification) on Wed06/23/23 at 1000, Until Discontinued 1000 (Not Given - Provider: Heidy Paris RN - Reason: Patient/family refused)1332 ([facility] Hold - Provider: Admin Adt - Reason: Transfer to a Procedural area)1548 ([facility] Unhold - Provider: Admin Adt) 1000 (Not Given - Provider: Heidy Paris RN - Reason: Patient/family refused) rOPINIRole (Requip) tablet 2 mg 2 mg, Oral, 2 TIMES DAILY, First dose on Wed06/15/23 at 0245, Until Discontinued, Routine 0853 (Given - Provider: Heidy Paris RN)1332 ([facility] Hold - Provider: Admin Adt - Reason: Transfer to a Procedural area)1548 ([facility] Unhold - Provider: Admin Adt)2136 (Given - Provider: Lorena Torres RN) 0856 (Given - Provider: Heidy Paris, ERWIN)2115 (Given - Provider: Machelle Busch, ERWIN) 0931 (Given - Provider: Heidy Paris RN) senna-docusate (Pericolace) 8.6-50 mg per tablet 2 tablet 2 tablet, Oral, 2 TIMES DAILY, First dose on Wed06/17/23 at 1100, Until Discontinued, Routine 0900 (Not Given - Provider: Heidy Paris RN - Reason: Patient/family refused)1332 ([facility] Hold - Provider: Admin Adt - Reason: Transfer to a Procedural area)1548 ([facility] Unhold - Provider: Admin Adt)2100 (Not Given - Provider: Lorena Torres, RN - Reason: Contraindicated) 0900 (Not Given - Provider: Heidy Paris RN - Reason: Patient/family refused)2100 (Given - Provider: Machelle Busch RN) 0900 (Given - Provider: Heidy Paris RN) sodium chloride 0.9 % (flush) (BD PosiFlush Normal Saline 0.9) flush 5 mL 5 mL, Intravenous, 2 TIMES DAILY, First dose on Wed06/15/23 at 0245, Until Discontinued, Routine 0859 (Given - Provider: Heidy Paris RN)1332 ([facility] Hold - Provider: Admin Adt - Reason: Transfer to a Procedural area)1548 ([facility] Unhold - Provider: Admin Adt)2099 (Not Given - Provider: Lorena Torres RN - Reason: Contraindicated) 0859 (Given - Provider: Heidy Paris RN)2116 (Given - Provider: Machelle Busch RN) 0937 (Given - Provider: Heidy Paris RN) spironolactone (Aldactone) tablet 25 mg 25 mg, Oral, DAILY, First dose on Wed06/15/23 at 0900, Until Discontinued, DO NOT SPLIT, CRUSH OR OPEN, Routine 0853 (Given - Provider: Heidy Paris RN)1332 ([facility] Hold - Provider: Admin Adt - Reason: Transfer to a Procedural area)1548 ([facility] Unhold - Provider: Admin Adt) 0856 (Given - Provider: Heidy Paris RN) 0931 (Given - Provider: Heidy Paris RN) topiramate (Topamax) tablet 100 mg 100 mg, Oral, NIGHTLY, First dose on Wed06/15/23 at 2100, Until Discontinued, Routine 1332 ([facility] Hold - Provider: Admin Adt - Reason: Transfer to a Procedural area)1548 ([facility] Unhold - Provider: Admin Adt)2137 (Given - Provider: Lorena Torres, ERWIN) 2117 (Given - Provider: Machelle Busch RN) Continuous Medication Order 07/07/2023 07/08/202307/09/2023 heparin (porcine) 50 units/mL in dextrose 5% 500 mL infusion (CANCELED)(Linked Group 1) 0-5,000 Units/hr (0-100 mL/hr), Intravenous, CONTINUOUS, Starting on 06/28/23 at 2100, Until Wed07/09/23 at 1409, Begin infusion at 1,550 units per hr (15 units/kg/hr). Maximum initial infusion rate is 2,000 units/hr Infusion doses are rounded to the nearest 50 units. Target Heparin UFH Level (anti-Xa activity) = 0.3 - 0.7 international unit/mL Start adjustment schedule 6 hours after starting infusion. If Heparin UFH Level is: -?Less than 0.1 international unit/mL:?Administer PRN bolus and increase rate by 400 units per hr (4 units/kg/hr) -?0.1 - 0.19 international unit/mL:? Administer PRN bolus and increase rate by 200 units per hr (2 units/kg/hr) -?0.2 - 0.29 international unit/mL:?NO BOLUS and increase rate by 200 units per hr (2 units/kg/hr) -?0.3 - 0.7 international unit/mL:?No change -?0.71 - 0.79 international unit/mL:?NO BOLUS and decrease rate by 100 units per hr (1 units/kg/hr) -?0.8 - 0.99 international unit/mL:?NO BOLUS and decrease rate by 200 units per hr (2 units/kg/hr) -?Greater than or equal to 1.00 international unit/mL:?Hold infusion for 60 minutes then decrease rate [...] Heparin UFH Level - Per Protocol, Routine 0127 (New Bag - Provider: Bailey Green RN)1300 (Stopped - Provider: Heidy Paris, ERWIN)1332 ([facility] Hold - Provider: Admin Adt - Reason: Transfer to a Procedural area)1548 ([facility] Unhold - Provider: Admin Adt)1815 (Restarted - Provider: Heidy Paris RN - Comment: per MD order to restart after procedure) 0103 (Rate/Dose Change - Provider: Lorena Torres RN)0802 (New Bag - Provider: Heidy Paris RN)2121 (Rate/Dose Verify - Provider: Machelle Busch RN) 0334 (Rate/Dose Verify - Provider: Machelle Busch RN - Comment: ufh 0.52)0635 (New Bag - Provider: Machelle Busch RN)1500 (Stopped - Provider: Heidy Paris RN) lactated ringers infusion (CANCELED) 100 mL/hr, Intravenous, CONTINUOUS, Starting on Wed07/07/23 at 1415, Until Wed07/07/23 at 1548, Endoscopy (Intra-Procedure) 1410 (New Bag - Provider: Gisel Boyer RN) PRN Medication Order 07/07/2023 07/08/2023 07/09/2023 acetaminophen (Tylenol) tablet 650 mg 650 mg, Oral, EVERY 6 HOURS PRN, Starting on 07/05/23 at 1522, Until Wed07/09/23 at 1844, Pain, Maximum dose of acetaminophen is 4,000 mg from all sources in 24 hours. When ordered for pain, acetaminophen should be given even when other ordered pain medications are indicated., Routine 1332 ([facility] Hold - Provider: Admin Adt - Reason: Transfer to a Procedural area)1548 ([facility] Unhold - Provider: Admin Adt) albuteroL (Proventil, Ventolin) (2.5 mg/3 mL) (0.083 %) nebulizer solution 2.5 mg 2.5 mg, Nebulization, EVERY 4 HOURS PRN, Starting on Wed07/04/23 at 0857, Until Wed07/09/23 at 1844, Wheezing, Routine 1332 ([facility] Hold - Provider: Admin Adt - Reason: Transfer to a Procedural area)1548 ([facility] Unhold - Provider: Admin Adt) lidocaine (Xylocaine) 1% (10 mg/mL) injection 3 mg 3 mg (0.3 mL), Subcutaneous, ONCE PRN, 1 dose, Starting on Wed06/15/23 at 0146, Until Wed07/09/23 at 1844, for discomfort with PIV insertion, Routine 1332 ([facility] Hold - Provider: Admin Adt - Reason: Transfer to a Procedural area)1548 ([facility] Unhold - Provider: Admin Adt) loratadine (Claritin) tablet 10 mg 10 mg, Oral, DAILY PRN, Starting on Wed06/15/23 at 0146, Until Wed07/09/23 at 1844, allergies, Routine 1332 ([facility] Hold - Provider: Admin Adt - Reason: Transfer to a Procedural area)1548 ([facility] Unhold - Provider: Admin Adt) nitroGLYcerin (Nitrostat) disintegrating tablet 0.4 mg 0.4 mg, Sublingual, EVERY 5 MIN PRN, Starting on Wed06/22/23 at 1119, Until Wed07/09/23 at 1844, Chest pain, SL nitroglycerin may be repeated every 5 minutes as needed up to 3 doses, Routine 1332 ([facility] Hold - Provider: Admin Adt - Reason: Transfer to a Procedural area)1548 ([facility] Unhold - Provider: Admin Adt) 0951 (Given - Provider: Heidy Paris, ERWIN) ondansetron (pf) (Zofran) (2 mg/mL) injection 4 mg 4 mg, Intravenous, EVERY 8 HOURS PRN, Starting on Wed06/29/23 at 1449, Until Wed07/09/23 at 1844, Nausea 1332 ([facility] Hold - Provider: Admin Adt - Reason: Transfer to a Procedural area)1548 ([facility] Unhold - Provider: Admin Adt)2137 (Given - Provider: Lorena Torres RN) 1008 (Given - Provider: Heidy Paris, ERWIN) 1140 (Given - Provider: Heiyd Paris, ERWIN) oxyCODONE-acetaminophen (Percocet) 5-325 mg per tablet 1 tablet 1 tablet, Oral, EVERY 6 HOURS PRN, Starting on Wed07/06/23 at 1020, Until Wed07/09/23 at 1844, Pain, for pain refractory to PRN acetaminophen, Maximum dose of acetaminophen is 4000 mg from all sources in 24 hours., Routine 1332 ([facility] Hold - Provider: Admin Adt - Reason: Transfer to a Procedural area)1548 ([facility] Unhold - Provider: Admin Adt)2137 (Given - Provider: Lorena Torres, ERWIN) 0855 (Given - Provider: Heidy Paris, ERWIN)2120 (Given - Provider: Machelle Busch RN) simethicone (Gas-X Chew) 80 mg chewable tablet 80 mg 80 mg, Oral, EVERY 6 HOURS PRN, Starting on Wed06/20/23 at 0941, Until Wed07/09/23 at 1844, Cramping, Routine 1332 ([facility] Hold - Provider: Admin Adt - Reason: Transfer to a Procedural area)1548 ([facility] Unhold - Provider: Admin Adt) 1344 (Given - Provider: Heidy Paris RN) sodium chloride 0.9 % (flush) (BD PosiFlush Normal Saline 0.9) flush 5-20 mL 5-20 mL, Intravenous, EVERY 1 MIN PRN, Starting on Wed06/15/23 at 0146, Until Wed07/09/23 at 1844, flush, Flush pertains to all indwelling lines. Flush per protocol found in the job aid using the link provided on this medication record., Routine 1332 ([facility] Hold - Provider: Admin Adt - Reason: Transfer to a Procedural area)1548 ([facility] Unhold - Provider: Admin Adt) Linked Groups Order Group 1: heparin (porcine) 50 units/mL in dextrose 5% 500 mL infusion (CANCELED)Jump to med 0-5,000 Units/hr (0-100 mL/hr), Intravenous, CONTINUOUS, Starting on Wed06/28/23 at 2100, Until Wed07/09/23 at 1409, Begin infusion at 1,550 units per hr (15 units/kg/hr). Maximum initial infusion rate is 2,000 units/hr Infusion doses are rounded to the nearest 50 units. Target Heparin UFH Level (anti-Xa activity) = 0.3 - 0.7 international unit/mL Start adjustment schedule 6 hours after starting infusion. If Heparin UFH Level is: -?Less than 0.1 international unit/mL:?Administer PRN bolus and increase rate by 400 units per hr (4 units/kg/hr) -?0.1 - 0.19 international unit/mL:? Administer PRN bolus and increase rate by 200 units per hr (2 units/kg/hr) -?0.2 - 0.29 international unit/mL:?NO BOLUS and increase rate by 200 units per hr (2 units/kg/hr) -?0.3 - 0.7 international unit/mL:?No change -?0.71 - 0.79 international unit/mL:?NO BOLUS and decrease rate by 100 units per hr (1 units/kg/hr) -?0.8 - 0.99 international unit/mL:?NO BOLUS and decrease rate by 200 units per hr (2 units/kg/hr) -?Greater than or equal to 1.00 international unit/mL:?Hold infusion for 60 minutes then decrease rate [...] Heparin UFH Level - Per Protocol, Routine And heparin (porcine) (1,000 units/mL) injection 0-8,000 Units (CANCELED) 0-8,000 Units, Intravenous, BOLUS PER HEPARIN PROTOCOL, Starting on Wed06/28/23 at 1620, Until Wed07/09/23 at 1409, Per Protocol, START ADJUSTMENT SCHEDULE 6 HOURS AFTER STARTING INFUSION Bolus doses are rounded to the nearest 100 units. If Heparin UFH Level is: - Less than 0.1 international unit/mL: Bolus 70 units/kg (Maximum of 8,000 units) = Bolus 7,100 units - 0.1 - 0.19 International unit/mL: Bolus 35 units/kg (Maximum of 4,000 units) = Bolus 3,600 units - Equal to or greater than 0.2 international unit/mL: No Bolus, Routine documented in this encounter Care Teams Sales Service Representative Relationship Specialty Start Date End Date Polo Pearce PA [address] [place] [address] PCP - General Internal Medicine 06/09/21 documented as of this encounter
--- OUTSIDE RECORDS SUMMARY | 2023-09-20 14:31 | XMS_ITS | Encounter Summary ---
Author Organization [facility] [place] [address] Care Team Providers Care Heating Element Builder Name Role Phone Polo Pearce Primary Care Provider [phone] Reason for Referral * Consultation (Routine) - Closed Specialty Diagnoses / Procedures Referred By Jayant harris Referred To Contact Gastroenterology Diagnoses Chronic abdominal pain chronic abd pain after meals Porsha San MD [facility] GASTROENTER[place] [address] [facility] [address] [place] [address] Referral ID Status Reason Start Date Expiration Date V isits Requested Visits Authorized [id number] Closed Consult, Test & Treat 07/08/2023 07/07/2024 1 1 Encounter Details Date Type Department Care Team (Late st Contact Info) Description 07/08/2023 Orders [place] [address] Porsha San MD [facility] GASTROENTEROLOGY [place] [address] Chronic abdominal pain Social History Tobacco Use Types Packs/Day Years Used Date Smoking Tobacco: Never Smokeless Tobacco: Never Alcohol Use Standard Drinks/Week Comments Never 0 (1 standard drink = 0.6 oz pur e alcohol) [facility] Utilities Answer Date Recorded In [...] place to sleep or slept in a snf (including now)? No 06/15/2023 DH IPV Inpatient [...] AM EDT Tech [place] [phone] Jose Cook 10/08/2023 9:30 AM EDT Office Visit Vascular Surgery at [place] [phone] MD [facility] DR [place]ASCULAR [place] [address] 10/21/2023 10:30 AM EDT Appointment Nuclear Medicine at [address] Mary Reyes, [facility] [place] [address] 10/21/2023 11:30 AM EDT Appointment Nuclear Medicine at [place] [phone] Mary Reyes [facility] [place] [address] 10/21/2023 12:30 PM EDT Appointment Nuclear Medicine at [place] [phone] Mary Reyes [facility] [place] [address] 10/21/2023 1:30 PM EDT Appointment Nuclear Medicine at [place] [phone] Mary Reyes [facility] [place] [address] 10/21/2023 2:30 PM EDT Appointment [place] [address] Mary Reyes [facility] [place] [address] 10/26/2023 4:00 PM EDT Office Visit Cardiology at [address] [phone] Jaspreet Kinsey MD [facility] [place] [address] 10/28/2023 9:00 AM EDT Office [place] [address] 10/29/2023 10:00 AM EDT Clinical Support [place] [address] 10/29/2023 10:15 AM EDT Procedure [place] [address] 11/01/2023 5:00 PM EDT Office Visit Gastroenterology at [place] [phone] Selene Browning, PhD [facility] [place] [address] 11/22/2023 4:40 PM EDT Office Visit Cardiology at [address] [phone] Porsha Mcdaniels MD [facility] [place] [address] 12/13/2023 10:00 AM EDT Clinical [place] [address] [facility] [place] [address] Scheduled Referrals Name Type Priority Associated Diagnoses Order Schedule Referral to Gastroenterology Outpatient Referral Routine Chronic abdominal pain Ordered: 07/08/2023 documented as of this encounter Visit Diagnoses Diagnosis Chronic abdominal pain Abdominal pain, unspecified site documented in this encounter Care Teams Heating Element Builder Relationship Specialty Start Date End Date Polo Pearce PA [address] [place] [address] PCP - General Internal Medicine 06/09/21 documented as of this encounter
--- OUTSIDE RECORDS SUMMARY | 2023-09-20 14:32 | XMS_ITS | Encounter Summary ---
[place] [address] Care Team Providers Care Yard Truck Driver Name Role Phone Polo Pearce Primary Care Provider [phone] Reason for Visit * Auth/Cert (Routine) Specialty Diagnoses / Procedures Referred By Jayant t Referred To Contact Diagnoses NSTEMI (non-ST elevated myocardial infarction) NSTEMI Procedures ER Lloyd Pantoja MD [facility] [address] [facility] Referral ID Status Reason Start Date Expiration Date Visits Re quested Visits Authorized [id number] 1 1 Encounter Details Date Type Department Care Team (Late st Contact Info) Description 07/07/2023 2:05 PM EDT Anesthesia [place] [address] Constantine Velez MD [facility] [place] [address] Anesthesia Record Procedure Summary Procedure Name Responsible Anesthesiologist Anesthesia Start Time Anesthesia Stop Time EGD WITH BIOPSY (WRVU 2.39) (Trunk) Constantine Velez MD 07/07/23 1405 07/07/23 1512 Events Date Time Event Comment 07/07/2023 1405 AN Verify 1405 Start 1409 An Start Data 1414 An Induction 1415 An Intubation 1417 Anesthesia Ready 1505 Extubation/LMA Out 1508 an stop data 1511 Recovery or ICU Handoff Merissa ent care was transferred to the destination unit staff after review of the patient's medical history, current anesthetic/surgical status and plan, according to the Provider Handoff Checklist. 1512 Stop 1620 Meds Name Total IV Lidocaine 100 mg Propofol 220 mg ondansetron 4 mg succinylcholine 100 mg propofol INF 420.33 mg lactated ringers 0 mL * Agents No agents on file. * Blood No blood administrations on file. Lines, Drains, and Airways Type Details Placement Removal Incision 07/02/23; 1300; Righ t, anterior; hip; non-laparascopic puncture; Right Femoral Arterial sheath; (This site was previously removed on last admission); 08/29/23; 07 (This site was previously removed on last admission) 07/02/23 1300 by Deborah Ely RN 08/29/23 0719 by Jayson Menon RN ETT Mask Ventilation: No t Attempted (0); ETT Type: Cuffed; ETT Size: 7 mm; Indirect: Video; Notes: Asleep; Attempts: 1; Laryngoscopy Grade: 3; ETT Placement Verified By: Visual, Capnometry, Auscultation; Secured at Teeth: 22 cm; Removal Date: 07/07/23; Removal Time: 1505 07/07/23 1415 by Darío Barlow CRNA 07/07/23 1505 by Darío Barlow CRNA documented in this encounter Social History Tobacco Use Types Packs/Day Years Used Date Smoking Tobacco: Never Smokeless Tobacco: Never Alcohol Use Standard Drinks/Week Comments Never 0 (1 standard drink = 0.6 oz pur e alcohol) [facility] Utilities Answer Date Recorded In the past 12 months has [employer]brain, gas, oil, or water [employer] threatened to shut off services in your [...] in a assisted (including now)? No 06/15/2023 DH IPV Inpatient [...] on file documented as of this encounter OR Notes * Anesthesia Postprocedure Evaluation - Constantine Velez MD - 07/07/2023 4:20 PM EDT Department of Anesthesiology Post-procedure Note Patient: Indira Roque Procedure Summary Date: 07/07/23 Room / Location: [facility] 5 / [facility] Anesthesia Start: 1405 Anesthesia Stop: 151 Procedures: EGD WITH BIOPSY (WRVU 2.39) (Trunk) COLONOSCOPY FLEXIBLE, WITH BX (WRVU 3.56) (Trunk) Diagnosis: (post prandial pain) Surgeons: Lashonda Villa MD Responsible Provider: Constantine Velez MD Anesthesia Type: general ASA Status: 4 All Anesthesia Providers: Anesthesiologist: Constantine Velez MD SUPERVISOR ELECTRONIC TESTING: Darío Barlow CRNA Pyrometer Mechanic: Lawrence Lopez MD Vitals Value Taken Time BP 96/51 07/07/23 1530 Temp Pulse Resp SpO2 100 % 07/07/23 1537 Pain Level 1 07/07/23 1510 Vitals shown include unfiled device data. Patient Location: PACU/IAP Level of Consciousness: Awake and Alert Pain Management: Satisfactory Analgesia PONV: None Cardiovascular Status: At Baseline and Hemodynamically Stable Respiratory Status: At Baseline and Room Air Postoperative Fluid Status: Intravascular EUvolemia Possible Anesthetic Complications: NONE apparent at time of evaluation Final Primary Anesthesia Type: General (The anesthetic type performed was the same as planned.) Comments: CONSTANTINE VELEZ MD * Anesthesia Preprocedure Evaluation - Constantine Velez MD - 07/07/2023 10:02 AM EDT Pre-Anesthesia Evaluation for: Indira Roque a 53 y.o. female. Procedure(s): EGD, UPPER GI ENDOSCOPY (WRVU 2.09) COLONOSCOPY, DIAGNOSTIC (WRVU 3.26) Patient Active Problem List Diagnosis Date Noted ??? NSTEMI (non-ST elevated myocardial infarction) 06/15/2023 ??? Endometriosis 03/18/2023 ??? Stenosis of left carotid artery greater than 50% 03/18/2023 ??? Restrictive lung disease secondary to obesity 03/18/2023 ??? Paresthesia of hand, bilateral 03/18/2023 ??? Paroxysmal atrial fibrillation 10/22/2022 ??? SVT (supraventricular tachycardia) 07/23/2021 ??? Obesity 06/07/2021 ??? Dyslipidemia 06/07/2021 ??? Obstructive sleep apnea syndrome 04/29/2020 ??? Insomnia 04/29/2020 ??? (HFpEF) heart failure with preserved ejection fraction 04/29/2020 ??? Restless legs 10/25/2019 ??? Asthma 06/26/2010 Past Medical History: Diagnosis Date ??? Asthma ??? Bilateral carpal tunnel syndrome 03/18/2023 ??? Bilateral renal artery stenosis 03/18/2023 ??? Depression ??? Endometriosis S/p hysterectomy ??? GERD (gastroesophageal reflux disease) 03/18/2023 ??? Hx of supraventricular tachycardia 03/18/2023 ??? Infiltrate of lower lobe of left lung present on imaging study 03/18/2023 ??? Insomnia ??? Left facial numbness 03/18/2023 ??? Left lateral epicondylitis 03/18/2023 ??? Left wrist pain 03/18/2023 ??? Migraine ??? Obesity (BMI 30-39.9) ??? MARYLOU on CPAP ??? Seasonal allergies Past Surgical History: Procedure Laterality Date ??? HYSTERECTOMY Social History Tobacco Use ??? Smoking status: Never ??? Smokeless tobacco: Never Substance Use Topics ??? Alcohol use: Never Social History Substance and Sexual Activity Drug Use Never Allergies Allergen Reactions ??? Codeine Other (See Comments) Per pt it causes severe jittery and uncomfortable feeling ??? Acetaminophen Other (See Comments) Makes her jittery, feel weird and cause swelling in upper/lower extremities ??? Clobetasol Rash Other reaction(s): Skin Rash Medications: MAR and/or home medications have been reviewed. Physical Exam: Preprocedure Vitals Current as of 07/07/23 1002 BP: 113/66 Pulse: 58 Resp: 18 SpO2: 99 Temp: 36.7 ??C (98 ??F) Height: 162.6 cm (5' 4) (06/14/23) Weight: 100.8 kg (222 lb 4.8 oz) (07/07/23) BMI: 38.16 IBW: 54.7 kg (120 lb 10.7 oz) Last edited 07/07/23 0853 by EP Airway Assessment: Mallampati: II TM distance: >3 FB Neck ROM: full Cardiovascular Assessment: system normal Pulmonary Assessment: unlabored breathing Dental Assessment: - normal exam Misc Assessment: IV access: Peripheral line Last Filed Perioperative Cognitive Screening None Anesthesia Plan: ASA 4 general, with a(n) intravenous induction 53yoF, 101 kg (BMI 38) here for EGD to evaluate severe abdominal pain of unclear etilogy PMH includes CAD with current admission for CP, found to have NSTEMI about 3 wks ago, supraventricular tachycardia (AVNRT since 06/2021) s/p EPS and SVT ablation on 04/01/23, paroxysmal A-fib (diagnosed on 10/20/2022), HFpEF, pulmonary emboli on Eliquis, COPD/asthma, and obesity hypoventilation syndrome (CPAP). 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 Patient's abdominal pain continues despite SMA stenting, prompting GI consultation most recent EF59% 02/2023; no sig valve issues Patient is currently nauseas so was given a dose of zofran, this presents significant risk of aspiration, so plan changed from MAC to GA with ETT- Careful attention to hemodynamics and volume status - NSTEMI attributed to volume overload Region - Other Informed Consent: Anesthetic plan and risks discussed with patient. Anesthesia Screening documented in this encounter Plan of Treatment Upcoming Encounters Date Type Department Care Team (Late st Contact Info) Description 10/08/2023 8:30 AM EDT Tech [place] [phone] Jose Cook 10/08/2023 9:30 AM EDT Office [place] [address] MD [facility] [place] [address] 10/21/2023 10:30 AM EDT Appointment [place] [address] Mary Reyes [facility] [place] [address] 10/21/2023 11:30 AM EDT Appointment [place] [phone] Mary Reyes [facility] [place] [address] 10/21/2023 12:30 PM EDT Appointment [place] [address] Mary Reyes [facility] [place] [address] 10/21/2023 1:30 PM EDT Appointment [place] [address] Mary Reyes [facility] [place] [address] 10/21/2023 2:30 PM EDT Appointment [place] [address] Mary Reyes [facility] [place] [address] 10/26/2023 4:00 PM EDT Office Visit Cardiology at [address] [phone] Jaspreet Kinsey MD [facility] [place] [address] 10/28/2023 9:00 AM EDT Office [place] [address] 10/29/2023 10:00 AM EDT Clinical [place] [address] 10/29/2023 10:15 AM EDT Procedure [place] [address] 11/01/2023 5:00 PM EDT Office [place] [phone] Selene Browning, [facility] [place] [address] 11/22/2023 4:40 PM EDT Office Visit Cardiology at [address] [phone] Porsha Mcdaniels MD [facility] [place] [address] 12/13/2023 10:00 AM EDT Clinical [place] [phone] [facility] [place] [address] documented as of this encounter Visit Diagnoses Not on filedocumented in this encounter Administered Medications Inactive Administered Medications - up to 3 most recent administrations Medication Order MAR Action Action Date Dose Rate Site lactated ringers infusion Intravenous, CONTINUOUS PRN, Starting on Wed07/07/23 at 1339, Until Wed07/07/23 at 1515, Anesthesia Intra-op New Bag 07/07/2023 1:39 PM EDT lidocaine (pf) (Xylocaine) (20 mg/mL) 2% injection syringe Intravenous, PRN, Starting on Wed07/07/23 at 1414, Until Wed07/07/23 at 1515, Anesthesia Intra-op, Routine Given 07/07/2023 2:14 PM EDT 100 mg ondansetron (pf) (Zofran) (2 mg/mL) injection Intravenous, PRN, Starting on Wed07/07/23 at 1352, Until Wed07/07/23 at 1515, Anesthesia Intra-op, Routine Given 07/07/2023 1:52 PM EDT 4 mg propofoL (Diprivan) (10 mg/mL) infusion Intravenous, CONTINUOUS PRN, Starting on Wed07/07/23 at 1416, Until Wed07/07/23 at 1515, Anesthesia Intra-op, Routine New Bag 07/07/2023 2:16 PM EDT 125 mcg/kg/min 54.825 mL/hr propofoL (Diprivan) 10 mg/mL bolus injection (Anesthesia) Intravenous, PRN, Starting on Wed07/07/23 at 1414, Until Wed07/07/23 at 1515, Anesthesia Intra-op Given 07/07/2023 2:14 PM EDT 220 mg succinylcholine (Anectine;Quelicin) (20 mg/mL) injection Intravenous, PRN, Starting on Wed07/07/23 at 1414, Until Wed07/07/23 at 1515, Anesthesia Intra-op, Routine Given 07/07/2023 2:14 PM EDT 100 mg documented in this encounter Care Teams Yard Truck Driver Relationship Specialty Start Date End Date Polo Pearce PA [address] [place] [address] PCP - General Internal Medicine 06/09/21 documented as of this encounter
--- OUTSIDE RECORDS SUMMARY | 2023-09-20 14:33 | XMS_ITS | Encounter Summary ---
Author Organization Formerly [facility] [place] [address] Care Team Providers Care Immersion Metal Cleaner Name Role Phone Polo Pearce Primary Care Provider [phone] Reason for Visit * Auth/Cert (Routine) Specialty Diagnoses / Procedures Referred By Jayant harris Referred To Contact Diagnoses NSTEMI (non-ST elevated myocardial infarction) NSTEMI Procedures ER Terrence Pantoja MD [facility] [place] [address] [facility] Referral ID Status Reason Start Date Expiration Date Visits Re quested Visits Authorized [id number] 1 1 Encounter Details Date Type Department Care Team (Late st Contact Info) Description 07/07/2023 1:00 PM EDT - 07/07/2023 2:00 PM EDT Surgery Gastroenterology at [facility] [place] [address] Lashonda Villa MD [facility] [place] [address] EGD WITH BIOPSY (WRVU 2.39) Social History Tobacco Use Types Packs/Day Years Used Date Smoking Tobacco: Never Smokeless Tobacco: Never Alcohol Use Standard Drinks/Week Comments Never 0 (1 standard drink = 0.6 oz pur e alcohol) [facility] Utilities Answer Date Recorded In the past 12 months has th e electric, gas, oil, or water Key [employer] threatened to shut off services in your [...] in a mcfp (including now)? No 06/15/2023 DH IPV Inpatient [...] Sign Reading Time Taken Comments Blood Pressure 117/72 07/07/2023 1:35 PM EDT Pulse 68 07/07/2023 1:35 PM EDT Temperature 36.7 ??C (98 ??F) 07/07/2023 8:53 AM EDT Respiratory Rate 18 07/07/2023 8:53 AM EDT Oxygen Saturation 96% 07/07/2023 1:35 PM EDT Inhaled Oxygen Concentration - - Weight 100.8 kg (222 lb 4.8 oz) 07/07/2023 6:02 AM EDT Height 162.6 cm (5' 4) 06/14/2023 11:0 8 PM EDT Body Mass Index 38.21 06/14/2023 11:08 PM EDT documented in this encounter Discharge Summaries * Terrence Keating MD - 07/09/2023 3:40 PM EDT Discharge Summary Patient Name: Loida Roque Patient Age: 53 y.o. Language: Dominican Race: White Ethnicity: Not nor Admit date: 06/14/2023 Discharge date and time: 07/09/2023 3:31 PM Attending Physician: Terrence Keating MD Discharge Physician: Terrence Keating MD Follow-up Recommendations for Providers: Inpatient Provider Contact Information: For questions regarding this document or issues relating to this hospitalization on the Medical Service, please contact your inpatient physician through the [facility] Cigarette Seller . Issues afterhours and on weekends will [...] who have questions please contact the health health care aide that requested 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 Electronically signed by: Wilton Cabrera MD, [facility] ([phone]), at 06/17/2023 5:[address] Abdomen & [...] who have questions please contact the health health care aide that requested 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 Electronically signed by: RONDA DUFFY MD, [facility] ([phone]), at 06/22/2023 7:59 AM XR Chest One [...] who have questions please contact the health health care aide that requested 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 Electronically signed by: Itz Hayward MD, [facility] ([phone]), at 06/22/2023 11:47 AM US Abdomen Limited (Exam End: 06/28/2023 12:22 PM) Result Value WORKSTATION ID [id number] Narrative Abdominal (Signed Final 06/28/2023 02:08 pm) PATIENT INFO: ID #: [id number] : [birth year] (53 yrs)(F) Name: LOIDA Visit Date: 06/28/2023 12:20 pm JUDE PERFORMED BY: Attending: Sigrid Owens MD Resident: Rafaela Huddleston MD Performed By: Deena Cabrera RDMS Referred By: AILYN IRVIN Location: [place] SERVICE(S) PROVIDED: UABDLIM - Abdominal Limited Survey Single [id number] Organ or Quadrant - [id number] INDICATIONS: RUQ pain, R/o Gall bladder colic, [...] PM Electronically signed by: Sigrid Owens MD, [facility] ([phone]), at 06/28/2023 2:02 PM Thank you for letting us participate in the care of this patient. If you are a health care provider and have any questions regarding this report, please contact the number above. For patients who have questions, please contact the health health care aide that requested 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 Sigrid Owens, E Senior C Software Developer Electronically Signed Final Report 06/28/2023 02:08 pm [...] anesthetic: 10 cc 1% lidocaine Heparin: Yes 05747 Units Protamine: No mg Antibiotics: Ancef Fluoro [...] We exchanged the sheath for a 7 Occitan guide escort steerable sheath over a stiff wire. A Glidewire and Kumpe catheter were used to selectively cannulate the superior mesenteric artery. Direct angiography of the superior mesenteric artery was performed, confirming the results of the nonselective aortography performed. The lesion was predilated with a 4 mm x 40 mm [place] balloon, and then a 6 mm X [...] 07/03/2023 3:18 PM) Result Value WORKSTATION ID [id number] Narrative EXAMINATION: XR CHEST ONE VIEW CLINICAL [...] who have questions please contact the health health care aide that requested 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 Electronically signed by: Itz Hayward MD, [facility] ([phone]), at 07/03/2023 3:27 PM Echocardiogram from 06/22/2023 [...] pain. The patient was recently admitted at [facility] from 04/16/23 to 04/19/[address] [facility] due to exertional chest pressure and breathlessness. [...] etiology, patient was accepted for transfer to [facility]. Brief Summary: Loida Roque is a 53 [...] with positive cardiac markers. Patient transferred to [facility] for further work-up and evaluation. On arrival, [...] Administered Date(s) Administered Moderna Covid-19 Monovalent 12Yr+ (Bed Laborer 100mcg) 03/06/2020, 04/03/2020 Discharge Medications: Your Medications [...] weight gain + increasing shortness of breath. [id number] minutes prior to a dose of torsemide). [...] appointments: During 8am-5pm Wednesday through Wednesday call [phone] to speak with a nurse in the cardiology clinic All other times call [phone] and ask to speak to the office manager executive assistant electronics inspector. Return to work: One week Driving: No driving for 48 hours after catheterization. Follow up Appointments: PCP JOCY Franco [phone] 11:30am on July 19. Cardiology office will call you regarding your appointment with Dr. Kinsey. General Instructions None Future Appointments and Orders Future Appointments and Orders Future Appointments Provider Department Dept Phone 07/26/2023 3:20 PM Jaspreet Kinsey MD Cardiology at [place] Arrive at: [facility] [address] [phone] 07/29/2023 8:00 AM Porsha Mcdaniels MD Cardiology at [facility] Arrive at: [facility] [address] [phone] 08/03/2023 8:30 AM Eladio Boyer Vascular Lab at [facility] Arrive at: [facility] [address] [phone] 08/03/2023 9:30 AM Judith Butler APRN Vascular Surgery at [facility] Arrive at: [facility] [address] [phone] 09/02/2023 2:40 PM Jaspreet Kinsey MD Cardiology at [place] Arrive at: [facility] [address] [phone] Discharge References/Attachments None Greater than 30 minutes was spent on this discharge including documentation, [id number] time withthe patient, patient education, pharmacy order entry technician, coordination with pharmacy and other patient care. [...] appointments: During 8am-5pm Wednesday through Wednesday call [phone] to speak with a nurse in the cardiology clinic All other times call [phone] and ask to speak to the office manager executive assistant electronics inspector. Return to work: One week Driving: No driving for 48 hours after catheterization. Follow up Appointments: PCP JOCY Franco [phone] 11:30am on July 19. Cardiology office will [...] as needed. fluticasone propionate (FLONASE) 50 mcg/actuation Fajardo, Suspension 1 spray by Each Nare route [...] 4pm, per the team. Please refer to: [place] [address] [place] [address] PHONE: [phone] FAX: [phone] *For RN RICARDO: 07/09/23 Nani Mendoza MSN-Ed, RN ACM Cardiac Research Nurse and Neuro/Neurocrit/ENT Servicing Rep. * Mary Castaneda RCP - 07/09/2023 4:37 [...] 1:00 PM EDT CV HOSPITALIST 2 - [facility] PROGRESS NOTE Page [phone] to reach a provider 28/09 Admit Date: [...] hours) at 07/08/20232019 Last data filed at 07/08/2023 2000 Gross per 24 hour Intake 300 ml [...] 168 hours. Recent Labs 07/08/23 0552 07/07/23 03507/06/23 0354 GLUCOSE 102 101 107 Telemetry: I [...] with positive cardiac markers. Patient transferred to [facility] for further work-up and evaluation. Presented with [...] prn. Diet: Daily Healthy Menu Choices/Cardiac diet ([facility]-Diet) DVT Prophylaxis: DOAC heparin gtt. 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 Patient transferred to [facility] for further work-up and evaluation. Presented with [...] Score: 24 PT: OT: PCP JOCY Franco [phone] Terrence Keating MD 07/07/2023 * Terrence Keating MD - 07/06/2023 11:00 AM EDT [facility] H[facility]PITALIST 2 - [facility] PROGRESS NOTE Page [phone] to reach a provider 28/09 Admit Date: 06/14/2023 Encounter Date July 06, 2023 Anticipated Discharge Date: 07/07/2023 Hospital Day: 22 Active Hospital Problems Diagnosis NSTEMI (non-ST elevated myocardial infarction) Resolved Hospital Problems No resolved problems to display. 24 Hour Events/Subjective: NAEON - reports 12/15 abdominal pain today - Weight 220lb downtrending, [...] with positive cardiac markers. Patient transferred to [facility] for further work-up and evaluation. Presented with [...] hospital Diet: Daily Healthy Menu Choices/Cardiac diet ([facility]-Diet) NPO diet (Give Meds) DVT Prophylaxis: DOAC Code status: Attempt Cardiopulmonary Resuscitation - Inpatient Disposition: Discharge Location: AM-[facility] Basic Mobility Raw Score: 24 PT: OT: PCP JOCY Franco [phone] Terrence Keating MD 07/06/2023 * Ana Paula [...] 11:00 AM EDT [facility] H[facility]PITALIST 2 - [facility] PROGRESS NOTE Page [phone] to reach a provider 28/09 Admit Date: [...] Vitals for the past 168 hrs: Weight 07/05/23 0405 100.7 kg (222 lb) 07/04/23 [...] with positive cardiac markers. Patient transferred to [facility] for further work-up and evaluation. Presented with [...] hospital Diet: Daily Healthy Menu Choices/Cardiac diet ([facility]-Diet) DVT Prophylaxis: DOAC Code status: Attempt Cardiopulmonary Resuscitation - Inpatient Disposition: Discharge Location: AM-PAC Basic Mobility Raw Score: 24 PT: OT: PCP JOCY Franco [phone] Terrence Keating MD 07/05/2023 * Lino Calles MD - 07/04/2023 9:09 AM EDT [facility] H[facility]PITALIST 2 - [facility] PROGRESS NOTE Page [phone] to reach a provider 28/09 Admit Date: [...] with positive cardiac markers. Patient transferred to [facility] for further work-up and evaluation. On arrival, [...] migraine Diet: Daily Healthy Menu Choices/Cardiac diet ([facility]-Diet) DVT Prophylaxis: DOAC Code status: Attempt Cardiopulmonary Resuscitation - Inpatient Disposition: Discharge Location: AM-PAC Basic Mobility Raw Score: 24 PT: OT: PCP JOCY Franco [phone] Lino Calles MD 07/04/2023 * Ana Paula [...] 8:59 AM EDT [facility] H[facility]PITALIST 2 - [facility] PROGRESS NOTE Page [phone] to reach a provider 28/09 Admit Date: [...] 93.6 92.8 Recent Labs 07/03/23 1800 07/03/23 03007/02/23 0358 07/01/23 0256 06/30/23 0314 06/29/23 0239 [...] Labs 06/15/23 0428 04/18/23 0210 04/17/23 0333 02/08/238 09/27/22 0307 TSH 2.98 -- 5.93* 4.00 [...] with positive cardiac markers. Patient transferred to [facility] for further work-up and evaluation. On arrival, [...] PRN Diet: Daily Healthy Menu Choices/Cardiac diet ([facility]-Diet) DVT Prophylaxis: DOAC Code status: Attempt Cardiopulmonary Resuscitation - Inpatient Disposition: Discharge Location: AM-PAC Basic Mobility Raw Score: 24 PT: OT: PCP JOCY Franco [phone] Lino Calles MD 07/03/2023 * Van Muse [...] 9:55 AM EDT CV HOSPITALIST 2 - [facility] PROGRESS NOTE Page [phone] to reach a provider 28/09 Admit Date: [...] 94.4 Recent Labs 07/02/23 0358 07/01/23 0256 06/30/234 06/29/23 0239 06/28/23 0152 NA 133* 137 [...] with positive cardiac markers. Patient transferred to [facility] for further work-up and evaluation. On arrival, [...] PRN Diet: Daily Healthy Menu Choices/Cardiac diet ([facility]-Diet) DVT Prophylaxis: DOAC Code status: Attempt Cardiopulmonary Resuscitation - Inpatient Disposition: Discharge Location: AM-PAC Basic Mobility Raw Score: 24 PT: OT: PCP JOCY Franco [phone] Lino Calles MD 07/02/2023 * Jaspreet Griffith [facility] - 07/02/2023 6:35 AM EDT Respiratory Care [...] 7:39 AM EDT [facility] H[facility]PITALIST 2 - [facility] PROGRESS NOTE Page [phone] to reach a provider 28/09 Admit Date: [...] She is alert. Labs: Recent Labs 07/01/23 02506/30/2331306/29/2323806/28/2315106/27/23 0434 WBC 6.9 8.0 8.3 8.1 7.6 HGB 12.8 13.1 13.2 13.4 12.9 HCT 39.0 39.5 38.9 40.6 39.0 PLATELET 224 235 237 238 245 MCV 96.5* 93.6 92.8 94.4 94.0 Recent Labs 07/01/23 02506/30/2331306/29/2323806/28/2315106/27/23200506/27/23 0434 NA 137 137 138 138 141 [...] last 168 hours. Recent Labs 07/01/23 0256 06/30/2331306/29/23 0239 GLUCOSE 95 103 100 Telemetry: I [...] with positive cardiac markers. Patient transferred to [facility] for further work-up and evaluation. On arrival, [...] PRN Diet: Daily Healthy Menu Choices/Cardiac diet ([facility]-Diet) NPO diet (Give Meds) DVT Prophylaxis: DOAC Code status: Attempt Cardiopulmonary Resuscitation - Inpatient Disposition: Discharge Location: AM-[facility] Basic Mobility Raw Score: 24 PT: OT: PCP JOCY Franco [phone] Terrence Keating MD 07/01/2023 * Terrence Keating MD - 06/30/2023 8:00 AM EDT CV HOSPITALIST 2 - [facility] PROGRESS NOTE Page [phone] to reach a provider 28/09 Admit Date: [...] 0239 06/28/23 0152 06/27/23 2006 06/27/23 0434 06/26/23 1658 06/26/23 0406 NA 137 138 138 141 138 < > 135 CL 104 105 105 106 105 < > 104 CO2 23 22 21* 24 22 < > 19* [...] with positive cardiac markers. Patient transferred to [facility] for further work-up and evaluation. On arrival, [...] Cardiopulmonary Resuscitation - Inpatient Disposition: Discharge Location: AM-[facility] Basic Mobility Raw Score: 24 PT: OT: PCP JOCY Franco [phone] Terrence Keating MD 06/30/2023 * Terrence Keating MD - 06/29/2023 4:29 PM EDT CV HOSPITALIST 2 - [facility] PROGRESS NOTE Page [phone] to reach a provider 28/09 Admit Date: 06/14/2023 Encounter Date June 29, [...] 94.4 94.0 96.5* 93.9 Recent Labs 06/29/23 0239 06/28/23 0152 06/27/23200506/27/23 0434 06/26/23 [...] with positive cardiac markers. Patient transferred to [facility] for further work-up and evaluation. On arrival, [...] Score: 24 PT: OT: PCP JOCY Franco [phone] Terrence Keating MD 06/29/2023 * Jo Ann Sharpe - 06/29/2023 2:54 PM EDT Nutrition Services Note - Low Nutrition Acuity Loida Roque is a 53 y.o. female Reason for intervention: follow up Nutrition Plan: Continue current diet. Encourage good PO intake. Spironolactone noted. Abdominal pain after eating noted. Encouragement and support provided. Pt screened for follow-up visit and selling underwriter met with Pt at bedside. Pt reported [...] consulted in the interim. Jo Ann Sharpe Casualty Claims Supervisor * Mary Castaneda RCP - 06/29/2023 3:55 [...] 1:53 PM EDT CV HOSPITALIST 2 - [facility] PROGRESS NOTE Page [phone] to reach a provider 28/09 Admit Date: [...] 94.0 96.5* 93.9 93.3 Recent Labs 06/28/23 01506/27/23200506/27/23 0434 06/26/23 1658 06/26/23 0406 06/25/23 0150 06/24/23 0338 NA 138 141 138 138 135 139 138 CL 105 106 105 104 104 102 104 CO2 21* 24 22 21* 19* 25 21* K [...] with positive cardiac markers. Patient transferred to [facility] for further work-up and evaluation. On arrival, [...] Score: 24 PT: OT: PCP JOCY Franco [phone] * Ailyn Irvin MD - 06/27/2023 9:40 AM EDT CV HOSPITALIST 2 - [facility] PROGRESS NOTE Page [phone] to reach a provider 28/09 Admit Date: [...] with positive cardiac markers. Patient transferred to [facility] for further work-up and evaluation. On arrival, [...] Score: 24 PT: OT: PCP JOCY Franco [phone] * Ailyn Irvin MD - 06/26/2023 12:42 PM EDT CV HOSPITALIST 2 - [facility] PROGRESS NOTE Page [phone] to reach a provider 28/09 Admit Date: [...] with positive cardiac markers. Patient transferred to [facility] for further work-up and evaluation. On arrival, [...] Score: 24 PT: OT: PCP JOCY Franco [phone] * Mitali Manuel RCP - 06/26/2023 5:43 AM EDT Respiratory Therapy [...] 1:39 PM EDT CV HOSPITALIST 2 - [facility] PROGRESS NOTE Page [phone] to reach a provider 28/09 Admit Date: [...] deficit. Labs: Recent Labs 06/25/23 0150 06/24/23 03306/23/232 06/22/234 06/21/23 0325 WBC 7.2 6.9 8.2 7.5 [...] with positive cardiac markers. Patient transferred to [facility] for further work-up and evaluation. On arrival, [...] Score: 24 PT: OT: PCP JOCY Franco [phone] * Edith Chandler RCP - 06/24/2023 10:40 [...] 4:38 PM EDT CV HOSPITALIST 2 - [facility] PROGRESS NOTE Page [phone] to reach a provider 28/09 Admit Date: [...] trending weight,will do BD dosing -Switch to Trixie pope. Medications: Scheduled Meds: lidocaine 1 patch Transdermal [...] 06/20/23 0333 101.2 kg (223 lb) 06/19/23 032 101.2 kg (223 lb 3.2 oz) 06/18/23 [...] No cranial nerve deficit. Labs: Recent Labs 06/24/2333706/23/232 06/22/234 06/21/2332406/20/23 033 WBC 6.9 8.2 7.5 9.3 10.1* HGB 13.6 14.3 12.8 14.9 14.2 HCT 40.7 43.1 39.1 44.2 41.5 PLATELET 220 233 225 279 253 MCV 93.3 93.9 96.8* 93.2 90.8 Recent Labs 06/24/23 0338 06/23/23 0412 06/22/23 0434 06/21/23 0558 06/21/235 06/20/23 033 NA 138 137 138 -- [...] with positive cardiac markers. Patient transferred to [facility] for further work-up and evaluation. On arrival, [...] Mobility Raw Score: 24 PT: OT: PCP Polo Ramses, [place] [phone] * Aaron Rosado RCP - 06/24/2023 1:55 [...] 1:03 PM EDT CV HOSPITALIST 2 - [facility] PROGRESS NOTE Page [phone] to reach a provider 28/09 Admit Date: [...] No cranial nerve deficit. Labs: Recent Labs 06/23/23 0412 06/22/23 0434 06/21/23 0325 06/20/23 0332 06/19/23 0322 WBC 8.2 7.5 9.3 10.1* 9.4 HGB 14.3 12.8 14.9 14.2 13.9 HCT 43.1 39.1 44.2 41.5 41.7 PLATELET 233 225 279 253 244 MCV 93.9 96.8* 93.2 90.8 93.1 Recent Labs 06/23/23 0412 06/22/23 0434 06/21/23 0558 06/21/23 0325 06/20/23 0332 06/19/23 1726 NA 137 138 -- 138 137 [...] with positive cardiac markers. Patient transferred to [facility] for further work-up and evaluation. On arrival, [...] Score: 24 PT: OT: PCP JOCY Franco [phone] * Ciera Valdovinos RD - 06/22/2023 2:38 PM EDT Nutrition Services Note - Low Nutrition Acuity Loida Roque is a 53 y.o. female Reason for intervention: hospital day 9 Nutrition Plan: Cardiac Diet Record % PO intake Monitor weight - diuresis noted Patient screened for hospital length of stay nutrition visit, selling underwriter met with Loida at bedside. Loida reports excellent appetite, eating 100% of meals. She notes that she has not skipped any meals inpatient and has no current nutrition related questions. She notes UBW 217-218 lbs and says that current weight is higher than normal for her. Diuresis noted. Active Orders Diet Daily Healthy Menu Choices/Cardiac diet ([facility]-Diet) Frequency: Effective Now Number of Occurrences: Until [...] 1:35 PM EDT CV H[facility]PITALIST 2 - [facility] PROGRESS NOTE Page [phone] to reach a provider 28/09 Admit Date: [...] Recent Labs 06/22/23 0434 06/21/23 0325 06/20/23 03306/19/23 0322 06/18/23 0419 WBC 7.5 9.3 10.1* [...] who have questions please contact the health health care aide that requested 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 Electronically signed by: RONDA DUFFY MD, [facility] ([phone]), at 06/22/2023 7:59 AM XR Chest One View (Exam End: 06/22/2023 11:42 AM) Impression No acute pulmonary findings Thank you for letting us participate in the care of this patient. If you are a health care provider and have any questions regarding this report, please contact the number below. For patients who have questions please contact the health health care aide that requested 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 Electronically signed by: Itz Hayward MD, [facility] ([phone]), at 06/22/2023 11:47 AM Assessment: Loida Roque [...] with positive cardiac markers. Patient transferred to [facility] for further work-up and evaluation. On arrival, [...] above Diet: Daily Healthy Menu Choices/Cardiac diet ([facility]-Diet) DVT Prophlaxis: eliquis Code status: Attempt Cardiopulmonary Resuscitation - Inpatient Disposition: Discharge Planning: AM-PAC Basic Mobility Raw Score: 24 PT: OT: PCP JOCY Franco [phone] * Eufemia Copeland MD - 06/21/2023 11:02 AM EDT CV HOSPITALIST 2 - [facility] PROGRESS NOTE Page [phone] to reach a provider 28/09 Admit Date: [...] No cranial nerve deficit. Labs: Recent Labs 06/21/2332406/20/232 06/19/23 03206/18/23 0419 06/17/23 0111 WBC 9.3 10.1* 9.4 [...] with positive cardiac markers. Patient transferred to [facility] for further work-up and evaluation. On arrival, [...] above Diet: Daily Healthy Menu Choices/Cardiac diet ([facility]-Diet) DVT Prophlaxis: eliquis Code status: Attempt Cardiopulmonary Resuscitation - Inpatient Disposition: Discharge Planning: AM-PAC Basic Mobility Raw Score: 24 PT: OT: PCP JOCY Franco [phone] * Eufemia Copeland MD - 06/20/2023 8:06 AM EDT CV HOSPITALIST 2 - [facility] PROGRESS NOTE Page [phone] to reach a provider 28/09 Admit Date: [...] with positive cardiac markers. Patient transferred to [facility] for further work-up and evaluation. On arrival, [...] Restart eliquis 06/15. #Migraines - [facility] migraine cocktail PRN Fluids: per migraine cocktail Electrolytes: replete as above Diet: Daily Healthy Menu Choices/Cardiac diet ([facility]-Diet) DVT Prophlaxis: eliquis Code status: Attempt Cardiopulmonary Resuscitation - Inpatient Disposition: Discharge Planning: AM-PAC Basic Mobility Raw Score: 24 PT: OT: PCP JOCY Franco [phone] * Eufemia Copeland MD - 06/19/2023 10:00 AM EDT CV HOSPITALIST 2 - [facility] PROGRESS NOTE Page [phone] to reach a provider 28/09 Admit Date: [...] Continuous Infusions: lactated Ringers 250 mL (06/17/23 1286) PRN Meds:.loratadine, sodium chloride 0.9 % (flush), [...] 0322 06/18/23 0419 06/17/23 0111 06/16/23 0330 06/15/23427 WBC 9.4 8.4 9.5 8.2 6.7 HGB 13.9 14.5 14.2 14.5 16.1* HCT 41.7 42.8 43.0 42.7 48.2* PLATELET 244 258 256 260 253 MCV 93.1 91.1 93.5 91.0 94.7* Recent Labs 06/19/23 0322 06/18/23 1717 06/18/23 0419 06/17/23 1426 06/17/23 0501 06/17/23 0111 06/16/23 0901 06/16/23 0330 06/15/23 0806/15/23427 NA 137 137 138 135 136 137 [...] this interval not displayed. Coags Recent Labs 06/15/23427 INR 1.1 PT 12.7* Cardiac Markers Recent Labs 06/15/23 0818 06/15/23427 TROPONINTHS 33* 34* PROBNP -- 1,953* Endocrine Recent Labs 06/15/23 0428 04/18/23 0210 04/17/23 0333 02/08/23220709/27/22 0307 TSH 2.98 -- 5.93* 4.00 -- [...] with positive cardiac markers. Patient transferred to [facility] for further work-up and evaluation. On arrival, [...] above Diet: Daily Healthy Menu Choices/Cardiac diet ([facility]-Diet) DVT Prophlaxis: eliquis Code status: Attempt Cardiopulmonary Resuscitation - Inpatient Disposition: Discharge Planning: AM-PAC Basic Mobility Raw Score: 24 PT: OT: PCP JOCY Franco [phone] * Eufemia Copeland MD - 06/18/2023 9:02 AM EDT [facility] H[facility]PITALIST 2 - [facility] DAILY PROGRESS NOTE Page [phone] to reach a provider 28/09 Admit Date: [...] with positive cardiac markers. Patient transferred to [facility] for further work-up and evaluation. On arrival, [...] above Diet: Daily Healthy Menu Choices/Cardiac diet ([facility]-Diet) DVT Prophlaxis: eliquis Code status: Attempt Cardiopulmonary Resuscitation - Inpatient Disposition: Discharge Planning: AM-PAC Basic Mobility Raw Score: 24 PT: OT: PCP JOCY Franco [phone] * Eufemia Copeland MD - 06/17/2023 12:02 PM EDT CV HOSPITALIST 2 - [facility] DAILY PROGRESS NOTE Page [phone] to reach a provider 28/09 Admit Date: [...] Labs 06/17/23 1426 06/17/23 0501 06/17/23 0111 06/16/23 2028 06/16/23 1429 06/16/23 0901 06/16/23 0330 06/15/23 2133 06/15/23 1747 06/15/23 0818 06/15/23 0428 NA 135 136 137 137 135 < > 135 < > 134* < > 134* CL 97* 100 100 99 96* < > 90* < > 89* < > 90* CO2 24 24 26 26 < > 33* < [...] with positive cardiac markers. Patient transferred to [facility] for further work-up and evaluation. On arrival, [...] above Diet: Daily Healthy Menu Choices/Cardiac diet ([facility]-Diet) DVT Prophlaxis: eliquis Code status: Attempt Cardiopulmonary Resuscitation - Inpatient Disposition: Discharge Planning: AM-PAC Basic Mobility Raw Score: 24 PT: OT: PCP JOCY Franco [phone] * Calista Hernandez, RT - 06/17/2023 4:36 AM EDT Respiratory [...] rest overnight. Plan: Continue to support patient RT Jonathon * Eufemia Copeland MD - 06/16/2023 3:25 PM EDT CV HOSPITALIST 2 - [facility] DAILY PROGRESS NOTE Page [phone] to reach a provider 28/09 Admit Date: [...] this interval not displayed. Coags Recent Labs 06/15/238 INR 1.1 PT 12.7* Cardiac Markers Recent [...] with positive cardiac markers. Patient transferred to [facility] for further work-up and evaluation. On arrival, [...] Restart eliquis 06/15 #Migraines - continue home nurte - migraine cocktail PRN Fluids: per migraine cocktail Electrolytes: replete as above Diet: Daily Healthy Menu Choices/Cardiac diet ([facility]-Diet) DVT Prophlaxis: eliquis Code status: Attempt Cardiopulmonary Resuscitation - Inpatient Disposition: Discharge Planning: AM-PAC Basic Mobility Raw Score: 24 PT: OT: PCP JOCY Franco [phone] documented in this encounter H&P Notes * [...] hospital problems to display for this patient. HPI Loida Roque is a 53 y.o. female [...] pain. The patient was recently admitted at [facility] from 04/16/23 to 04/19/[address] [facility] due to exertional chest pressure and breathlessness. [...] etiology, patient was accepted for transfer to [facility]. 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 fluticasone propionate (FLONASE) 50 mcg/actuation Fajardo, Suspension 1 spray by Each Nare route [...] if hypotensive / cardiogenic shock / inferior MD / sildenafil within past 24 hours) - [...] for discharge to home with family support, [facility] for RN and OP Cardi clinic for f/u. Needs for Transition of Care: Plan for discharge is: Home w/ Services Outpatient Agency/Support Group Needs: None Home Health Services: Registered Nurse Agency Referrals & Follow-up Care: Contact information for follow-up Home Health & Hospice, [place] [address] [place] [address] Transportation: taxi voucher -Ride confirmed entrance #2 [...] other (see comments) (Has CPAP provided through [facility]) DME Needed at Discharge: none Patient is insured through: Primary Insurance: [employer] [place] Pay[place] [employer] [place] / Plan[place] / Product Type: *No Product type* / Secondary Insurance: N/A Prescription Coverage: Yes This plan was formulated with input from patient, (please identify family/friend involved if applicable) and team. All are in agreement with plan. Nani Mendoza MSN-Ed, RN ACM Cardiac Research Nurse and Neuro/Neurocrit/ENT Servicing Rep. * Care Management - Dixie Patterson - 07/09/2023 1:38 PM EDT Transportation for discharge was scheduled and confirmed through [employer]. [employer] will have a stock driver here at entrance #2 @4pm to bring patient home. OCM Managers aware of transportation or medication requirements for discharge. * Plan of Care - Mahcelle Busch RN - 07/09/2023 2:26 AM EDTSummary: [...] Visceral Aorta 80 16 Celiac Artery, Proximal [place]hasic 119 26 Celiac Artery, Mid [place] 115 21 Celiac Artery, Distal No Vis Sup Mes Artery Proximal [place]ic 427 91 Sup Mes Artery Middle [place]-B[place]has[place] 100 17 Sup Mes Artery Distal [place] 64 15 Hepatic Artery No Vis Splenic [...] sign off at this time, please page [phone] with any questions or concerns. Discussed with [...] Visceral Aorta 80 16 Celiac Artery, Proximal [place] 119 26 Celiac Artery, Mid [place] 115 21 Celiac Artery, Distal No Vis Sup Mes Artery Proximal [place]ic 427 91 Sup Mes Artery Middle [place] 100 17 Sup Mes Artery Distal [place] 64 15 Hepatic Artery No Vis Splenic [...] duplex Discussed with Dr. Kamara. Please page [phone] with any questions or concerns. 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 At [place], patient should be strict NPO. The plan as outlined above was discussed with Dr. Villa. Recommendations were discussed with primary team. Sis Keenan M.D. Fellow in Gastroenterology and Hepatology Pager #[phone] 07/06/2023 Associated attestation - Lashonda Villa MD [...] Lashonda Villa MD Gastroenterology and hepatology Pager: [phone] * Plan of Care - Olive Hernandez [...] Visceral Aorta 80 16 Celiac Artery, Proximal [place] 119 26 Celiac Artery, Mid [place] 115 21 Celiac Artery, Distal No Vis Sup Mes Artery Proximal [place] 427 91 Sup Mes Artery Middle [place] 100 17 Sup Mes Artery Distal [place] 64 15 Hepatic Artery No Vis Splenic [...] duplex Discussed with Dr. Kamara. Please page [phone] with any questions or concerns. Gauri Vega [...] Visceral Aorta 80 16 Celiac Artery, Proximal [place] 119 26 Celiac Artery, Mid [place] 115 21 Celiac Artery, Distal No Vis Sup Mes Artery Proximal [place] 427 91 Sup Mes Artery Middle [place] 100 17 Sup Mes Artery Distal [place] 64 15 Hepatic Artery No Vis Splenic [...] ASA) Discussed with Dr. Kamara. Please page [phone] with any questions or concerns. Gauri Vega [...] Visceral Aorta 80 16 Celiac Artery, Proximal [place] 119 26 Celiac Artery, Mid [place] 115 21 Celiac Artery, Distal No Vis Sup Mes Artery Proximal [place] 427 91 Sup Mes Artery Middle [place] 100 17 Sup Mes Artery Distal [place] 64 15 Hepatic Artery No Vis Splenic [...] 07/02/[address] Kamara. Please page [phone] with any questions or concerns. Gauri Vega [...] Visceral Aorta 80 16 Celiac Artery, Proximal [place] 119 26 Celiac Artery, Mid [place] 115 21 Celiac Artery, Distal No Vis Sup Mes Artery Proximal [place] 427 91 Sup Mes Artery Middle [place] 100 17 Sup Mes Artery Distal [place] 64 15 Hepatic Artery No Vis Splenic [...] decrease in LV systolic function. Assessment: Loida Jude is a 53 y.o. female admitted with [...] tonight Discussed with Dr. Kamara. Please page [phone] with any questions or concerns. Gauri Vega [...] Visceral Aorta 80 16 Celiac Artery, Proximal [place] 119 26 Celiac Artery, Mid [place] 115 21 Celiac Artery, Distal No Vis Sup Mes Artery Proximal [place] 427 91 Sup Mes Artery Middle [place] 100 17 Sup Mes Artery Distal [place] 64 15 Hepatic Artery No Vis Splenic [...] 4.0 4.3 CL 105 105 106 CO2 22 21* 24 BUN 21* 24* 24* CREATININE 1.17 [...] Visceral Aorta 80 16 Celiac Artery, Proximal [place] 119 26 Celiac Artery, Mid [place] 115 21 Celiac Artery, Distal No Vis Sup Mes Artery Proximal [place] 427 91 Sup Mes Artery Middle [place] 100 17 Sup Mes Artery Distal [place] 64 15 Hepatic Artery No Vis Splenic [...] Dominguez PA - 06/28/2023 8:52 AM EDT [facility] Department of Cardiology Consult Progress Note Reason [...] above, please page if further consultation required. SUHA LangstonC Cardiovascular Medicine Pager [phone] 06/28/2023 Associated attestation - Klarissa Henderson MD [...] 238 245 Last 3 Lytes Recent Labs 06/29/2323806/28/23 0152 06/27/232005 NA 138 138 141 K 3.9 4.0 4.3 CL 105 105 106 CO2 22 21* 24 BUN 21* 24* 24* CREATININE 1.17 [...] Tellez MD - 06/24/2023 2:14 PM EDT [facility] Department of Cardiology Consult Progress Note Reason [...] if further consultation required. Alejandro Tellez MD [place] [id number] Associated attestation - Willy Gómez MD [...] No Patient is insured through: Primary Insurance: [employer] [place] Payor: [facility] [place] / Plan[place] / [...] of Discharge: 06/26/2023 BEA Killian, RN Inpatient Technical Operations Specialist- Cardiology Office of Care Management Pager #: [phone] * Plan of Care - Alejandro Davenport [...] 9:08 PM * Plan of Care - Paradise Paz RN - 06/22/2023 6:43 PM EDT [...] of Hospital-Acquired Illness or Injury 06/22/20231842 by Paradise Paz RN Outcome: Ongoing [...] RN Outcome: Ongoing (Interventions Implemented as Appropriate) 06/22/2023 184 by Paradise Paz RN Outcome: Ongoing (Interventions Implemented as Appropriate) Problem: Chest Pain Goal: Resolution of Chest Pain Symptoms Outcome: Ongoing (Interventions Implemented as Appropriate) * Consult Note - Gauri eVga MD - 06/22/2023 4:08 PM EDT Patient [...] fraction Overview Note: 05/2021: subacute, presented to 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 fluticasone propionate (FLONASE) 50 mcg/actuation Fajardo, Suspension 1 spray by Each Nare route [...] hgb, hct plt Recent Labs 06/22/23 0434 06/21/235 06/20/23 0332 WBC 7.5 9.3 10.1* HGB 12.8 14.9 14.2 HCT 39.1 44.2 41.5 PLATELET 225 279 253 Last 3 Lytes Recent Labs 06/22/2343306/21/23 0558 06/21/2332406/20/23331 NA 138 -- 138 137 K 3.9 [...] other (see comments) (Has CPAP provided through [employer]) DME Needed at Discharge: No Patient is insured through: Primary Insurance: [employer] [place] Pay[place] [employer] [place] / Plan[place] / [...] Anticipated Date of Discharge: 06/23/2023 [place] plastics nurse Pgr: [phone] * Plan of Care - [...] of Care Goal: Plan of Care Review 06/19/2023558 by Aaron Caban RN Outcome: Ongoing (Interventions Implemented as Appropriate) 06/19/2023245 by Aaron Caban RN Outcome: Ongoing (Interventions Implemented as Appropriate) Goal: Patient-Specific Goal (Individualized) 06/19/2023558 by Aaron Caban RN Outcome: Ongoing (Interventions Implemented as Appropriate) 06/19/2023245 by Aaron Caban RN Outcome: Ongoing (Interventions Implemented as Appropriate) Goal: Absence of Hospital-Acquired Illness or Injury 06/19/2023558 by Aaron Caban RN Outcome: Ongoing (Interventions Implemented as Appropriate) 06/19/2023245 by Aaron Caban RN Outcome: Ongoing (Interventions Implemented as Appropriate) Goal: Optimal Comfort and Wellbeing 06/19/2023 05 by Aaron Caban RN Outcome: Ongoing (Interventions [...] other (see comments) (Has CPAP provided through [employer]) DME Needed at Discharge: No Patient is insured through: Primary Insurance: [employer] [place] [employer] [place] / Plan: [facility] [place] / Product Type: *No Product type* / Secondary Insurance: N/A Plan for discharge is: Home w/o Services Outpatient Agency/Support Group Needs: None Agency Referrals: Not Applicable at this time. Transportation: taxi voucher Barriers to discharge: Discharge planning Plan going forward: Pt to dc home with family without services once medically ready. Care Management will continue to follow and assist with discharge planning and coordination of careas indicated. Anticipated Date of Discharge: 06/19/2023 BEA Killian, RN Inpatient Technical Operations Specialist- Cardiology Office of Care Management Pager #: [phone] * Plan of Care - Olive Hernandez, ERWIN - 06/17/2023 5:57 AM EDT Problem: Adult [...] reports of CP or SOB. Expressed pain 12/15 d/t migrane, treated with pt's own Nurtec. [...] COVID test: Lab Results Component Value Date [id number] Not Detected 06/13/2021 Past medical History: Past [...] In the past 12 months has the Patient Home Monitoring, gas, oil, or water [employer] threatened to shut off services in your [...] other (see comments) (Has CPAP provided through [facility]) Home Address confirmed as: [address] [address] Social & Family Supports: All names listed [...] Specific Information: Has a CPAP provided by [employer]/Prescription Coverage: Primary Insurance: [employer] [place] Pay[place] [employer] [place] / Plan: [employer] [place] / Product Type: *No Product type* / Secondary Insurance: N/A ; Prescription Coverage: Yes Preferred Pharmacy: [facility] [address] [place] [address] [place] [address] [place], [place] - [address] [facility] [address] [facility] [address] [facility] [address] Status: Patient is a : No Primary Care Provider confirmed: JOCY Franco [phone] Patient/Caregiver Goals of Treatment: To figure out what is wrong Potential Needs for Transition of Care: other (see comments) ([facility] help) Agency Referrals: Not Applicable Transportation: no concerns Transportation Anticipated: agency ( can not drive , mother does not drive , Son does not have a car) Concerns to be Addressed: discharge planning Assessment: Patient is admitted to [facility] service for Chest pain Plan: May need [...] planning. Office of Care Management Float / maritime officer plastics nurse [email or web address] Pager #[phone] * Consult Note - Jackie Batres MD - 06/15/2023 11:04 AM EDT [facility] Department of Cardiology Initial Consult Note Patient: [...] her case. She has not had recent long term care administrator monitoring for arrhythmia, though unlikely, is possible [...] AM EDT Tech [place] [phone] Jose Cook 10/08/2023 9:30 AM EDT Office [place] [phone] MD [facility] [place] [address] 10/21/2023 10:30 AM EDT Appointment [place] [phone] Mary Reyes, ROM [facility] [place] [address] 10/21/2023 11:30 AM EDT Appointment Nuclear Medicine at [place] [phone] Mary Reyes, [facility] [place] [address] 10/21/2023 12:30 PM EDT Appointment [place] [address] Mary Reyes [facility] [place] [address] 10/21/2023 1:30 PM EDT Appointment [place] [address] Mary Reyes, [facility] [place] [address] 10/21/2023 2:30 PM EDT Appointment [place] [address] Mary Reyes [facility] [place] [address] 10/26/2023 4:00 PM EDT Office Visit Cardiology at [address] [place] [phone] Jaspreet Kinsey MD [facility] [place] [address] 10/28/2023 9:00 AM EDT Office [place] [address] 10/29/2023 10:00 AM EDT Clinical Support [place] [address] 10/29/2023 10:15 AM EDT Procedure visit [place] [address] 11/01/2023 5:00 PM EDT Office [place] [address] Selene Browning, PhD [facility] [place] [address] 11/22/2023 4:40 PM EDT Office Visit Cardiology at [address] [address] Porsha Mcdaniels MD [facility] [place] [address] 12/13/2023 10:00 AM EDT Clinical [place] [address] [facility] [place] [address] Scheduled Orders Name Type Priority Associated Diagnoses [...] HC CBC,PLT & AUTO DIFF Routine 4 3:03 AM EDT HC PHOSPHORUS, SERUM Routine [...] HC CBC,PLT & AUTO DIFF Routine 4 5:52 AM EDT HC PHOSPHORUS, SERUM Routine [...] Routine 07/07/2023 2:25 PM EDT Colonoscopy, Biopsy ([id number]) 07/07/2023 2:10 PM EDT post prandial pain Upper Gi Endoscopy, Biopsy ([id number]) 07/07/2023 2:10 PM EDT post prandial pain [...] Glucose Lvl 111 65 - 199 mg/dL [facility] Comment:Diabetes: >=200 mg/d L plus symptoms BUN 29(H) 8 - 18 mg/dL [facility] Creatinine 1.41(H) 0.70 - 1.20 mg/dL [facility] Sodium 140 135 - 145 mmol/L [facility] Potassium 3.6 3.5 - 5.0 mmol/L [facility] Comment: Please note: ??Patients with WBC >100,000 may have falsely elevated Potassium levels. ??For accurate Potassium quantification in these patients send serum separator tube (gold top) for subsequent determinations. ??Contact the Clinical Chemistry Laboratory if there are any questions. Chloride 99 98 - 107 mmol/L [facility] CO2 29 22 - 31 mmol/L [facility] Anion Gap 12 5 - 15 mmol/L [facility] Calcium 10.0 8.5 - 10.5 mg/dL [facility] Estimated GFR 44(L) >=60 mL/min/1. 73 m?? [facility] Comment: This patient's estimated GFR [...] In Lab Terrence Keating MD CHEMISTRY ORDERABLES [facility] [place] [address] * Differential, Automated (07/09/2023 3:03 AM EDT) Neutrophils % 51.4 % [facility] Neutr Abs (ANC) 3.43 1.70 - 6.10 x10(3)/[facility] Lymphocytes % 31.4 % [facility] Lymphocytes Abs 2.1 0.9 - 3.2 x10(3)/[facility] Monocytes % 10.1 % [facility] Monocyte Abs 0.7 0.3 - 0.9 x10(3)/[facility] Eosinophils % 6.0 % [facility] Eosinophils Abs 0.4 0.0 - 0.4 x10(3)/[facility] Basophils % 0.8 % [facility] Basophils Abs 0.0 0.0 - 0.1 x10(3)/[facility] Immature Gran % 0.30 % [facility] Comment: Immature granulocytes(IG's)percentage and absolute count will include metamyelocytes, myelocytes, and promyelocytes. Blood smears from CBCs yielding IG's will be scanned manually for concordance. If this scan disagrees with the automated IG or if promyelocytes are noted, a manual differential will be performed. Shonda Gran Abs 0.02 0.00 - 0.04 x10(3)/[facility] Blood 07/09/2023 3:03 AM EDT 07/09/2023 3:14 AM EDT Narrative Resulting Agency Comment Spec In Lab Terrence Keating MD HEMATOLOGY ORDERABLE S [facility] [place] [address] * (ABNORMAL) Hemogram (07/09/2023 3:03 AM EDT) WBC 6.7 4.0 - 9.5 x10(3)/[facility] RBC 3.87(L) 4.00 - 5.21 x10(6)/[facility] Hemoglobin 12.4 11.7 - 15.5 g/dL [facility] Hematocrit 36.8 35.7 - 45.8 % [facility] MCV 95.1(H) 82.6 - 94.4 fL [facility] MCH 32.0 27.1 - 32.0 pg [facility] MCHC 33.7 31.7 - 35.0 g/dL [facility] Platelets 209 145 - 357 x10(3)/[facility] RDWSD 47.9(H) 37.0 - 46.0 fL [facility] RDWCV 13.7 11.5 - 14.1 % [facility] MPV 10.5 7.6 - 12.9 fL [facility] nRBC % Auto 0.0 % [facility] nRBC Abs Auto 0.000 0.000 - 0.000 x10(3)/[facility] Blood 07/09/2023 3:03 AM EDT 07/09/2023 3:14 AM EDT Narrative Resulting Agency Comment Spec In Lab Terrence Keating MD HEMATOLOGY ORDERABLE S [facility] [place] [address] * Heparin (unfractionated) Level (07/09/2023 3:03 AM EDT) Heparin UFH Level 0.52 IU/mL [facility] Comment: Heparin (anti-Xa) levels should [...] Lab Ailyn Irvin MD HEMATOLOGY ORDERABLE S [facility] [place] [address] * (ABNORMAL) Basic Metabolic Panel (non-fasting) (07/09/2023 3:03 AM EDT) Glucose Lvl 100 65 - 199 mg/dL [facility] Comment:Diabetes: >=200 mg/d L plus symptoms BUN 12 8 - 18 mg/dL [facility] Creatinine 1.24(H) 0.70 - 1.20 mg/dL [facility] Sodium 138 135 - 145 mmol/L [facility] Potassium 4.2 3.5 - 5.0 mmol/L [facility] Comment: Please note: ??Patients with WBC >100,000 may have falsely elevated Potassium levels. ??For accurate Potassium quantification in these patients send serum separator tube (gold top) for subsequent determinations. ??Contact the Clinical Chemistry Laboratory if there are any questions. Chloride 104 98 - 107 mmol/L [facility] CO2 22 22 - 31 mmol/L [facility] Anion Gap 12 5 - 15 mmol/L [facility] Calcium 9.3 8.5 - 10.5 mg/dL [facility] Estimated GFR 52(L) >=60 mL/min/1. 73 m?? [facility] Comment: This patient's estimated GFR [...] MD CHEMISTRY ORDERABL ES Performing Organization Address [facility]/ZIP Co de Phone Number [facility] [place] [address] * Phosphorus (07/09/2023 3:03 AM EDT) Phosphorus 4.5 2.5 - 4.5 mg/dL [facility] Blood 07/09/2023 3:03 AM EDT 07/09/2023 3:14 AM EDT Narrative Resulting Agency Comment Spec In Lab Eufemia Copeland MD CHEMISTRY ORDERABL ES Performing Organization Address [facility] Co de Phone Number [facility] [place] [address] * Magnesium (07/09/2023 3:03 AM EDT) Magnesium 0.91 0.69 - 1.07 mmol/L [facility] Blood 07/09/2023 3:03 AM EDT 07/09/2023 3:14 AM EDT Narrative Resulting Agency Comment Spec In Lab Eufemia Copeland MD CHEMISTRY ORDERABL ES Performing Organization Address [facility] Co de Phone Number [facility] [place] [address] * Heparin (unfractionated) Level (07/08/2023 12:02 PM EDT) Heparin UFH Level 0.45 IU/mL [facility] Comment: Heparin (anti-Xa) levels should [...] Lab Terrence Keating MD HEMATOLOGY ORDERABLE S [facility] [place] [id number] * EKG 12 Lead (07/08/2023 9:58 AM EDT) Ventricular rate 66 BPM MUSE SYSTEM Atrial Rate 66 BPM MUSE SYSTEM P-R Interval 178 ms MUSE SYSTEM QRS Duration 92 ms MUSE SYSTEM Q-T Interval 486 ms MUSE SYSTEM QTC Calculated (Bezet) 509 ms MUSE SYSTEM Calculated P Marion 29 degrees MUSE SYSTEM Calculated R Marion 33 degrees MUSE SYSTEM Calculated T Marion 29 degrees MUSE SYSTEM INTERPRETATION Normal sinus rhythm Nonspecific ST and T wave abnormality Prolonged QT Abnormal ECG When compared with ECG of 04-JUL-2023 11:41, Criteria for Septal infarct are no longer Present I personally reviewed the tracing and edited the fellows interpretation Confirmed by fellow MD Keyshawn, Katalina ([id number]) on 07/08/2023 3:18:07 PM Confirmed by MD Beatriz, Klarissa ([id number]) on 07/09/2023 6:15:21 AM MUSE SYSTEM 07/08/2023 9:58 AM EDT 07/09/2023 6:15 AM EDT Lisa Beck MD ECG ORDERABLES Performing Organization Address City/[facility]/ZIP Co de Phone Number MUSE SYSTEM * Differential, Automated (07/08/2023 5:52 AM EDT) Neutrophils % 60.6 % [facility] Neutr Abs (ANC) 4.42 1.70 - 6.10 x10(3)/mcL [facility] Lymphocytes % 24.8 % [facility] Lymphocytes Abs 1.8 0.9 - 3.2 x10(3)/[facility] Monocytes % 9.2 % [facility] Monocyte Abs 0.7 0.3 - 0.9 x10(3)/[facility] Eosinophils % 4.5 % [facility] Eosinophils Abs 0.3 0.0 - 0.4 x10(3)/[facility] Basophils % 0.5 % [facility] Basophils Abs 0.0 0.0 - 0.1 x10(3)/[facility] Immature Gran % 0.40 % [facility] Comment: Immature granulocytes(IG's)percentage and absolute count will include metamyelocytes, myelocytes, and promyelocytes. Blood smears from CBCs yielding IG's will be scanned manually for concordance. If this scan disagrees with the automated IG or if promyelocytes are noted, a manual differential will be performed. Shonda Gran Abs 0.03 0.00 - 0.04 x10(3)/[facility] Blood 07/08/2023 5:52 AM EDT 07/08/2023 5:58 AM EDT Narrative Resulting Agency Comment Spec In Lab Terrence Keating MD HEMATOLOGY ORDERABLE S [facility] [place] [address] * (ABNORMAL) Hemogram (07/08/2023 5:52 AM EDT) WBC 7.3 4.0 - 9.5 x10(3)/[facility] RBC 3.94(L) 4.00 - 5.21 x10(6)/[facility] Hemoglobin 12.3 11.7 - 15.5 g/dL [facility] Hematocrit 36.3 35.7 - 45.8 % [facility] MCV 92.1 82.6 - 94.4 [facility] MCH 31.2 27.1 - 32.0 pg [facility] MCHC 33.9 31.7 - 35.0 g/dL [facility] Platelets 207 145 - 357 x10(3)/[facility] RDWSD 44.6 37.0 - 46.0 [facility] RDWCV 13.3 11.5 - 14.1 % [facility] MPV 10.5 7.6 - 12.9 [facility] nRBC % Auto 0.0 % [facility] nRBC Abs Auto 0.000 0.000 - 0.000 x10(3)/[facility] Blood 07/08/2023 5:52 AM EDT 07/08/2023 5:58 AM EDT Narrative Resulting Agency Comment Spec In Lab Terrence Keating MD HEMATOLOGY ORDERABLE S [facility] [place] [address] * Heparin (unfractionated) Level (07/08/2023 5:52 AM EDT) Heparin UFH Level 0.37 IU/mL [facility] Comment: Heparin (anti-Xa) levels should [...] Lab Ailyn Irvin MD HEMATOLOGY ORDERABLE S [facility] [place] [address] * (ABNORMAL) Basic Metabolic Panel (non-fasting) (07/08/2023 5:52 AM EDT) Glucose Lvl 102 65 - 199 mg/dL [facility] Comment:Diabetes: >=200 mg/d L plus symptoms BUN 14 8 - 18 mg/dL [facility] Creatinine 1.30(H) 0.70 - 1.20 mg/dL [facility] Sodium 139 135 - 145 mmol/L [facility] Potassium 3.2(L) 3.5 - 5.0 mmol/L [facility] Comment: Please note: ??Patients with WBC >100,000 may have falsely elevated Potassium levels. ??For accurate Potassium quantification in these patients send serum separator tube (gold top) for subsequent determinations. ??Contact the Clinical Chemistry Laboratory if there are any questions. Chloride 101 98 - 107 mmol/L [facility] CO2 25 22 - 31 mmol/L [facility] Anion Gap 13 5 - 15 mmol/L [facility] Calcium 9.3 8.5 - 10.5 mg/dL [facility] Estimated GFR 49(L) >=60 mL/min/1. 73 m?? [facility] Comment: This patient's estimated GFR [...] MD CHEMISTRY ORDERABL ES Performing Organization Address [facility] Co de Phone Number [facility] [place] [address] * Phosphorus (07/08/2023 5:52 AM EDT) Phosphorus 4.3 2.5 - 4.5 mg/dL [facility] Blood 07/08/2023 5:52 AM EDT 07/08/2023 5:58 AM EDT Narrative Resulting Agency Comment Spec In Lab Eufemia Copeland MD CHEMISTRY ORDERABL ES Performing Organization Address [facility] de Phone Number [facility] [place] [address] * Magnesium (07/08/2023 5:52 AM EDT) Magnesium 0.89 0.69 - 1.07 mmol/L [facility] Blood 07/08/2023 5:52 AM EDT 07/08/2023 5:58 AM EDT Narrative Resulting Agency Comment Spec In Lab Eufemia Copeland MD CHEMISTRY ORDERABL ES Performing Organization Address [facility] de Phone Number [facility] [place] [address] * Heparin (unfractionated) Level (07/08/2023 12:00 AM EDT) Heparin UFH Level 0.22 IU/mL [facility] Comment: Heparin (anti-Xa) levels should [...] MD HEMATOLOGY ORDERABLE S Performing Organization Address [facility]/ZIP Co de Phone Number [facility] [place] [address] * Specimen to Pathology (07/07/2023 2:55 PM EDT) AP Specimen 07/07/2023 2:55 PM EDT 07/07/2023 2:55 PM EDT Narrative [facility] - 07/07/2023 2:55 PM EDT Specimen requisition ordered. ??Separate Pathology report to follow Terrence Keating MD PATHOLOGY/CYTOLOGY O RUMA Performing Organization Address [facility]/ZIP Co de Phone Number [facility] [place] [address] * Specimen to Pathology (07/07/2023 2:38 PM EDT) AP Specimen 07/07/2023 2:38 PM EDT 07/07/2023 2:38 PM EDT Narrative [facility] - 07/07/2023 2:38 PM EDT Specimen requisition ordered. ??Separate Pathology report to follow Terrence Keating MD PATHOLOGY/CYTOLOGY O RUMA Performing Organization Address City/[facility]/ZIP Co de Phone Number [facility] [place] [address] * Specimen to Pathology (07/07/2023 2:38 PM EDT) AP Specimen 07/07/2023 2:38 PM EDT 07/07/2023 2:38 PM EDT Narrative [facility] - 07/07/2023 2:38 PM EDT Specimen requisition ordered. ??Separate Pathology report to follow Terrence Keating MD PATHOLOGY/CYTOLOGY Deyanira HENDRIX [facility] [place] [id number] * Surgical Pathology Report (07/07/2023 2:25 PM EDT) Surgical Pathology Report [id number] ? Location: [facility]; [facility]; A The signing pathologist has (i) examined [...] Sapna Verified: ??07/19/2023 13:25 ??Pathologist Performed at: ??-[facility] Dept. of Pathology, [place] [address] Multiple Spindle Screw Machine Operator: Vangie Lu MD, FCAP, ??CLIA Certificate: [id number] SPECIMEN(S) SUBMITTED A - duodenal biopsies rule [...] toto ??in 2 cassettes labeled C1-C2. ??sdy [facility] 07/07/2023 2:25 PM EDT Lashonda Villa MD PATHOLOGY/CYTOLOGY O RUMA [facility] [place] [address] * COLONOSCOPY (07/07/2023 1:39 PM EDT) COLONOSCOPY [facility] Procedure Date: 07/07/2023 1:39 PM ? Patient Name: Loida Roque ? Date of : 1970 ? Age: 53 ? Order #: [id number] ? Instrument Name: [id number] ? Procedure: ? Colonoscopy Indications: ? Abdominal pain, Diarrhea Providers: ? Lashonda Villa MD, [place] ? Mercedes San Lori Agan Referring MD: [...] ? was evaluated using the BBPS ? ([place] Bowel Preparation Scale) ? with scores of: [...] Procedure Code(s): ? --- Professional --- ? 17274, Colonoscopy, flexible; with ? biopsy, single or multiple CPT copyright 2021 [employer]. All rights reserved. The codes documented in this report are preliminary and upon electrotype molder review may be revised to meet current [...] 1 EIA Negative for Shiga Toxin 2 [facility] Stool 07/07/2023 12:1 0 PM EDT 07/07/2023 12:53 PM EDT Narrative Resulting Agency Comment Spec In Lab Ailny Irvin MD MICROBIOLOGY - GENER AL ORDERABLES Performing Organization Address [facility] de Phone Number [facility] [place] [address] * Campylobacter Antigen (07/07/2023 12:10 PM EDT) Campylobacter Ag Immunoassay Negative for Campylobacter Antigen [facility] Stool 07/07/2023 12:1 0 PM EDT 07/07/2023 12:53 PM EDT Narrative Resulting Agency Comment Spec In Lab Ailyn Irvin MD MICROBIOLOGY - GENER AL ORDERABLES Performing Organization Address [facility] de Phone Number [facility] [place] [address] * Stool culture (07/07/2023 12:10 PM EDT) Stool Culture No enteric pathogens isolated [facility] Stool 07/07/2023 12:1 0 PM EDT 07/07/2023 12:53 PM EDT Narrative Resulting Agency Comment Spec In Lab Ailyn Irvin MD MICROBIOLOGY - GENER AL ORDERABLES Performing Organization Address [facility] de Phone Number [facility] [address] * (ABNORMAL) Differential, Automated (07/07/2023 3:51 AM EDT) Neutrophils % 58.9 % [facility] Neutr Abs (ANC) 4.67 1.70 - 6.10 x10(3)/mc L [facility] Lymphocytes % 24.8 % [facility] Lymphocytes Abs 2.0 0.9 - 3.2 x10(3)/ L [facility] Monocytes % 9.4 % [facility] Monocyte Abs 0.7 0.3 - 0.9 x10(3)/[facility] LAB[facility] Eosinophils % 6.1 % [facility] Eosinophils Abs 0.5(H) 0.0 - 0.4 x10(3)/[facility] Basophils % 0.5 % [facility] Basophils Abs 0.0 0.0 - 0.1 x10(3)/[facility] Immature Gran % 0.30 % [facility] Comment: Immature granulocytes(IG's)percentage and absolute count will include metamyelocytes, myelocytes, and promyelocytes. Blood smears from CBCs yielding IG's will be scanned manually for concordance. If this scan disagrees with the automated IG or if promyelocytes are noted, a manual differential will be performed. Shonda Gran Abs 0.02 0.00 - 0.04 x10(3)/[facility] Blood 07/07/2023 3:51 AM EDT 07/07/2023 4:08 AM EDT Narrative Resulting Agency Comment Spec In Lab Terrence Keating MD HEMATOLOGY ORDERABLE S [facility] [place] [address] * Hemogram (07/07/2023 3:51 AM EDT) WBC 7.9 4.0 - 9.5 x10(3)/[facility] LABORATORY RBC 4.42 4.00 - 5.21 x10(6)/[facility] Hemoglobin 13.8 11.7 - 15.5 g/dL [facility] Hematocrit 41.0 35.7 - 45.8 % [facility] MCV 92.8 82.6 - 94.4 fL [facility] MCH 31.2 27.1 - 32.0 pg [facility] MCHC 33.7 31.7 - 35.0 g/dL [facility] Platelets 255 145 - 357 x10(3)/[facility] RDWSD 44.8 37.0 - 46.0 fL [facility] RDWCV 13.2 11.5 - 14.1 % [facility] MPV 10.6 7.6 - 12.9 [facility] nRBC % Auto 0.0 % [facility] nRBC Abs Auto 0.000 0.000 - 0.000 x10(3)/[facility] Blood 07/07/2023 3:51 AM EDT 07/07/2023 4:08 AM EDT Narrative Resulting Agency Comment Spec In Lab Terrence Keating MD HEMATOLOGY ORDERABLE S [facility] [place] [address] * Heparin (unfractionated) Level (07/07/2023 3:51 AM EDT) Heparin UFH Level 0.33 IU/mL [facility] Comment: Heparin (anti-Xa) levels should [...] Lab Terrence Keating MD HEMATOLOGY ORDERABLE S [facility] [place] [address] * (ABNORMAL) Basic Metabolic Panel (non-fasting) (07/07/2023 3:51 AM EDT) Glucose Lvl 101 65 - 199 mg/dL [facility] Comment:Diabetes: >=200 mg/d L plus symptoms BUN 18 8 - 18 mg/dL [facility] Creatinine 1.30(H) 0.70 - 1.20 mg/dL [facility] Sodium 135 135 - 145 mmol/L [facility] Potassium 3.5 3.5 - 5.0 mmol/L [facility] Comment: Please note: ??Patients with WBC >100,000 may have falsely elevated Potassium levels. ??For accurate Potassium quantification in these patients send serum separator tube (gold top) for subsequent determinations. ??Contact the Clinical Chemistry Laboratory if there are any questions. Chloride 96(L) 98 - 107 mmol/L [facility] CO2 23 22 - 31 mmol/L [facility] Anion Gap 16(H) 5 - 15 mmol/L [facility] Calcium 9.4 8.5 - 10.5 mg/dL [facility] Estimated GFR 49(L) >=60 mL/min/1. 73 m?? [facility] Comment: This patient's estimated GFR [...] MD CHEMISTRY ORDERABL ES Performing Organization Address [facility] de Phone Number [facility] [place] [address] * Phosphorus (07/07/2023 3:51 AM EDT) Phosphorus 4.0 2.5 - 4.5 mg/dL [facility] Blood 07/07/2023 3:51 AM EDT 07/07/2023 4:08 AM EDT Narrative Resulting Agency Comment Spec In Lab Eufemia Copeland MD CHEMISTRY ORDERABL ES Performing Organization Address [facility] Phone Number [facility] [place] [address] * Magnesium (07/07/2023 3:51 AM EDT) Magnesium 0.87 0.69 - 1.07 mmol/L [facility] Blood 07/07/2023 3:51 AM EDT 07/07/2023 4:08 AM EDT Narrative Resulting Agency Comment Spec In Lab Eufemia Copeland MD CHEMISTRY ORDERABL ES Performing Organization Address [facility] de Phone Number [facility] [place] [address] * Hepatic Function Panel (07/07/2023 3:51 AM EDT) Total Protein 7.5 6.1 - 8.0 g/dL [facility] Albumin 4.4 3.2 - 5.2 g/dL [facility] AST 15 0 - 30 unit/L [facility] ALT 20 0 - 30 unit/L [facility] Alk Phos 54 35 - 105 unit/L [facility] Total Bilirubin 0.4 0.2 - 1.3 mg/dL [facility] Bili, Direct 0.1 0.0 - 0.3 mg/dL [facility] Blood 07/07/2023 3:51 AM EDT 07/07/2023 4:08 AM EDT Narrative Resulting Agency Comment Spec In Lab Ailyn Irvin MD CHEMISTRY ORDERABLES Performing Organization Address City/[facility] Co de Phone Number [facility] [place] [address] * Giardia/Cryptosporidium Antigens ([facility]/CGP/APD/NLH) (07/07/2023 12:38 AM EDT) Pathologist [facility] Giardia Screen Negative Negative [facility] Comment:Examination for othe r intestinal parasites requires foreign travel history. Cryptosporidium Screen Negative Negative [facility] Stool 07/07/2023 12:3 8 AM EDT 07/07/2023 7:56 AM EDT Narrative Resulting Agency Comment Spec In Lab Ailyn Irvin MD MICROBIOLOGY - GENER AL ORDERABLES Performing Organization Address [facility] Co de Phone Number [facility] [address] * Hepatic Function Panel (07/06/2023 3:41 PM EDT) Total Protein 7.6 6.1 - 8.0 g/dL [facility] Albumin 4.3 3.2 - 5.2 g/dL [facility] AST 20 0 - 30 unit/L [facility] ALT 22 0 - 30 unit/L [facility] Alk Phos 58 35 - 105 unit/L [facility] Total Bilirubin 0.4 0.2 - 1.3 mg/dL [facility] Bili, Direct 0.1 0.0 - 0.3 mg/dL [facility] Blood 07/06/2023 3:41 PM EDT 07/06/2023 4:00 PM EDT Narrative Resulting Agency Comment Spec In Lab Terrence Keating MD CHEMISTRY ORDERABLES Performing Organization Address [facility] Co de Phone Number [facility] [place] [address] * Hepatic Function Panel (07/06/2023 3:54 AM EDT) [facility] Total Protein 7.6 6.1 - 8.0 g/dL [facility] Albumin 4.3 3.2 - 5.2 g/dL [facility] AST Not Perf 0 - 30 [facility] Comment: Unable to quantitate due to sample hemolysis. ??Sample redraw suggested. Called by: abimbola, Read back by: Ana Paula Borja, Date/Time:07/06/23 14:08. ALT 25 0 - 30 unit/L [facility] Alk Phos 58 35 - 105 unit/L [facility] Total Bilirubin 0.4 0.2 - 1.3 mg/dL [facility] Bili, Direct Not Perf 0.0 - 0.3 [facility] Blood Venous Draw / Unknown 07/06/2023 3:54 AM EDT 07/06/2023 4:18 AM EDT Narrative Resulting Agency Comment Spec In Lab Terrence Keating MD CHEMISTRY ORDERABLES Performing Organization Address City/[facility]/ZIP Co de Phone Number [facility] [address] * (ABNORMAL) Differential, Automated (07/06/2023 3:54 AM EDT) [facility] Neutrophils % 56.6 % [facility] Neutr Abs (ANC) 4.34 1.70 - 6.10 x10(3)/mc L [facility] Lymphocytes % 26.1 % [facility] Lymphocytes Abs 2.0 0.9 - 3.2 x10(3)/[facility] Monocytes % 9.6 % [facility] Monocyte Abs 0.7 0.3 - 0.9 x10(3)/[facility] Eosinophils % 6.6 % [facility] Eosinophils Abs 0.5(H) 0.0 - 0.4 x10(3)/[facility] Basophils % 0.7 % [facility] Basophils Abs 0.0 0.0 - 0.1 x10(3)/[facility] Immature Gran % 0.40 % [facility] Comment: Immature granulocytes(IG's)percentage and absolute count will include metamyelocytes, myelocytes, and promyelocytes. Blood smears from CBCs yielding IG's will be scanned manually for concordance. If this scan disagrees with the automated IG or if promyelocytes are noted, a manual differential will be performed. Shonda Gran Abs 0.03 0.00 - 0.04 x10(3)/[facility] Blood 07/06/2023 3:54 AM EDT 07/06/2023 4:12 AM EDT Narrative Resulting Agency Comment Spec In Lab Terrence Keating MD HEMATOLOGY ORDERABLE S [facility] [place] [address] * (ABNORMAL) Hemogram (07/06/2023 3:54 AM EDT) WBC 7.7 4.0 - 9.5 x10(3)/[facility] LABORATORY RBC 4.62 4.00 - 5.21 x10(6)/[facility] Hemoglobin 14.7 11.7 - 15.5 g/dL [facility] Hematocrit 43.8 35.7 - 45.8 % [facility] MCV 94.8(H) 82.6 - 94.4 fL [facility] MCH 31.8 27.1 - 32.0 pg [facility] MCHC 33.6 31.7 - 35.0 g/dL [facility] Platelets 243 145 - 357 x10(3)/[facility] RDWSD 47.2(H) 37.0 - 46.0 [facility] RDWCV 13.5 11.5 - 14.1 % [facility] MPV 10.4 7.6 - 12.9 [facility] nRBC % Auto 0.0 % [facility] nRBC Abs Auto 0.000 0.000 - 0.000 x10(3)/[facility] Blood 07/06/2023 3:54 AM EDT 07/06/2023 4:12 AM EDT Narrative Resulting Agency Comment Spec In Lab Terrence Keating MD HEMATOLOGY ORDERABLE S [facility] [place] [address] * (ABNORMAL) Basic Metabolic Panel (non-fasting) (07/06/2023 3:54 AM EDT) Glucose Lvl 107 65 - 199 mg/dL [facility] Comment:Diabetes: >=200 mg/d L plus symptoms BUN 16 8 - 18 mg/dL [facility] Creatinine 1.25(H) 0.70 - 1.20 mg/dL [facility] Sodium 135 135 - 145 mmol/L [facility] Potassium 3.9 3.5 - 5.0 mmol/L [facility] Comment: Please note: ??Patients with WBC >100,000 may have falsely elevated Potassium levels. ??For accurate Potassium quantification in these patients send serum separator tube (gold top) for subsequent determinations. ??Contact the Clinical Chemistry Laboratory if there are any questions. Chloride 98 98 - 107 mmol/L [facility] CO2 23 22 - 31 mmol/L [facility] Anion Gap 14 5 - 15 mmol/L [facility] Calcium 10.0 8.5 - 10.5 mg/dL [facility] Estimated GFR 51(L) >=60 mL/min/1. 73 m?? [facility] Comment: This patient's estimated GFR [...] MD CHEMISTRY ORDERABL ES Performing Organization Address City/[facility]/ZIP Co de Phone Number [facility] [place] [address] * Phosphorus (07/06/2023 3:54 AM EDT) Phosphorus 4.5 2.5 - 4.5 mg/dL [facility] Blood 07/06/2023 3:54 AM EDT 07/06/2023 4:18 AM EDT Narrative Resulting Agency Comment Spec In Lab Eufemia Copeland MD CHEMISTRY ORDERABL ES [facility] [place] [address] * Magnesium (07/06/2023 3:54 AM EDT) Magnesium 0.97 0.69 - 1.07 mmol/L [facility] Blood 07/06/2023 3:54 AM EDT 07/06/2023 4:18 AM EDT Narrative Resulting Agency Comment Spec In Lab Eufemia Copeland MD CHEMISTRY ORDERABL ES Performing Organization Address [facility] Co de Phone Number [facility] [place] [address] * Heparin (unfractionated) Level (07/06/2023 3:54 AM EDT) Heparin UFH Level 0.31 IU/mL [facility] Comment: Heparin (anti-Xa) levels should be determined in a plasma sample that has been drawn 6 hours after a dose change to approximate steady-state for continuous heparin infusions. Indication specific Heparin (anti-Xa) levels based on order set selection: Acute DVT or PE treatment: 0.3 ? 0.7 IU/mL Thrombosis Prevention (eg. atrial fibrillation, dayr-procedural bridging, mechanical valves): 0.3 ? 0.7 IU/mL Acute Coronary Syndrome: 0.3 ? 0.7 IU/mL Stroke Indications: 0.3 ? 0.5 IU/mL Ultra-low intensity (select indications in cardiac surgery): 0.1 ? 0.3 IU/mL Blood 07/06/2023 3:54 AM EDT 07/06/2023 4:50 AM EDT Narrative Resulting Agency Comment Spec In Lab Ailyn Irvin MD HEMATOLOGY ORDERABLE S Performing Organization Address City/[facility] Co de Phone Number [facility] [address] * Amylase (07/05/2023 5:44 PM EDT) Amylase 35 28 - 100 unit/L [facility] Blood 07/05/2023 5:44 PM EDT 07/05/2023 6:00 PM EDT Narrative Resulting Agency Comment Spec In Lab Terrence Keating MD CHEMISTRY ORDERABLES Performing Organization Address City/[facility]/ZIP Co de Phone Number [facility] [place] [address] * Lipase (07/05/2023 5:44 PM EDT) Lipase 17 0 - 60 unit/L [facility] Blood 07/05/2023 5:44 PM EDT 07/05/2023 6:00 PM EDT Narrative Resulting Agency Comment Spec In Lab Terrence Keating MD CHEMISTRY ORDERABLES [facility] [place] [address] * (ABNORMAL) Basic Metabolic Panel (non-fasting) (07/05/2023 5:44 PM EDT) Glucose Lvl 130 65 - 199 mg/dL [facility] Comment:Diabetes: >=200 mg/d L plus symptoms BUN 17 8 - 18 mg/dL [facility] Creatinine 1.30(H) 0.70 - 1.20 mg/dL [facility] Sodium 134(L) 135 - 145 mmol/L [facility] Potassium 3.7 3.5 - 5.0 mmol/L [facility] Comment: Please note: ??Patients with WBC >100,000 may have falsely elevated Potassium levels. ??For accurate Potassium quantification in these patients send serum separator tube (gold top) for subsequent determinations. ??Contact the Clinical Chemistry Laboratory if there are any questions. Chloride 98 98 - 107 mmol/L [facility] CO2 21(L) 22 - 31 mmol/L [facility] Anion Gap 15 5 - 15 mmol/L [facility] Calcium 9.6 8.5 - 10.5 mg/dL [facility] Estimated GFR 49(L) >=60 mL/min/1. 73 m?? [facility] Comment: This patient's estimated GFR [...] In Lab Terrence Keating MD CHEMISTRY ORDERABLES [facility] [address] * Duplex Study Visceral Arteries, Comp (07/05/2023 9:46 AM EDT) VB Text Report Department: Vascular Surgery Lab Patient: [id number] (LOIDA ROQUE) CPT: 51188 Referring Physician: TERRENCE KEATING ?? Phone: Indications: [...] ?Bi-Triphasic ?101 ?11 ?? Hepatic Artery ? Somervell-Biphasic ? 123 ?23 ?? Splenic Artery ? Somervell-Biphasic ? 122 ?24 ?? Inf Mes Artery [...] 5:05 AM EDT) Neutrophils % 63.0 % [facility] Neutr Abs (ANC) 5.59 1.70 - 6.10 x10(3)/mcL [facility] Lymphocytes % 22.4 % [facility] Lymphocytes Abs 2.0 0.9 - 3.2 x10(3)/[facility] Monocytes % 9.7 % [facility] Monocyte Abs 0.9 0.3 - 0.9 x10(3)/[facility] Eosinophils % 4.1 % [facility] Eosinophils Abs 0.4 0.0 - 0.4 x10(3)/[facility] Basophils % 0.6 % [facility] Basophils Abs 0.0 0.0 - 0.1 x10(3)/[facility] Immature Gran % 0.20 % [facility] Comment: Immature granulocytes(IG's)percentage and absolute count will include metamyelocytes, myelocytes, and promyelocytes. Blood smears from CBCs yielding IG's will be scanned manually for concordance. If this scan disagrees with the automated IG or if promyelocytes are noted, a manual differential will be performed. Shonda Gran Abs 0.02 0.00 - 0.04 x10(3)/[facility] Blood 07/05/2023 5:05 AM EDT 07/05/2023 5:17 AM EDT Narrative Resulting Agency Comment Spec In Lab Terrence Keating MD HEMATOLOGY ORDERABLE S [facility] [place] [address] * (ABNORMAL) Hemogram (07/05/2023 5:05 AM EDT) WBC 8.9 4.0 - 9.5 x10(3)/[facility] RBC 4.42 4.00 - 5.21 x10(6)/[facility] Hemoglobin 13.7 11.7 - 15.5 g/dL [facility] Hematocrit 41.4 35.7 - 45.8 % [facility] MCV 93.7 82.6 - 94.4 [facility] MCH 31.0 27.1 - 32.0 pg [facility] MCHC 33.1 31.7 - 35.0 g/dL [facility] Platelets 245 145 - 357 x10(3)/[facility] RDWSD 47.1(H) 37.0 - 46.0 fL [facility] RDWCV 13.7 11.5 - 14.1 % [facility] MPV 10.8 7.6 - 12.9 [facility] nRBC % Auto 0.0 % [facility] nRBC Abs Auto 0.000 0.000 - 0.000 x10(3)/[facility] Blood 07/05/2023 5:05 AM EDT 07/05/2023 5:17 AM EDT Narrative Resulting Agency Comment Spec In Lab Terrence Keating MD HEMATOLOGY ORDERABLE S [facility] [place] [address] * Heparin (unfractionated) Level (07/05/2023 5:05 AM EDT) Heparin UFH Level 0.35 IU/mL [facility] Comment: Heparin (anti-Xa) levels should [...] Lab Ailyn Irvin MD HEMATOLOGY ORDERABLE S [facility] [place] [address] * (ABNORMAL) Basic Metabolic Panel (non-fasting) (07/05/2023 5:05 AM EDT) Glucose Lvl 114 65 - 199 mg/dL [facility] Comment:Diabetes: >=200 mg/d L plus symptoms BUN 19(H) 8 - 18 mg/dL [facility] Creatinine 1.51(H) 0.70 - 1.20 mg/dL [facility] Sodium 134(L) 135 - 145 mmol/L [facility] Potassium 3.8 3.5 - 5.0 mmol/L [facility] Comment: Please note: ??Patients with WBC >100,000 may have falsely elevated Potassium levels. ??For accurate Potassium quantification in these patients send serum separator tube (gold top) for subsequent determinations. ??Contact the Clinical Chemistry Laboratory if there are any questions. Chloride 97(L) 98 - 107 mmol/L [facility] CO2 25 22 - 31 mmol/L [facility] Anion Gap 12 5 - 15 mmol/L [facility] Calcium 10.0 8.5 - 10.5 mg/dL [facility] Estimated GFR 41(L) >=60 mL/min/1. 73 m?? [facility] Comment: This patient's estimated GFR [...] MD CHEMISTRY ORDERABL ES Performing Organization Address [facility] de Phone Number [facility] [place] [address] * (ABNORMAL) Phosphorus (07/05/2023 5:05 AM EDT) Pathologist [facility] Phosphorus 5.0(H) 2.5 - 4.5 mg/dL [facility] Blood 07/05/2023 5:05 AM EDT 07/05/2023 5:17 AM EDT Narrative Resulting Agency Comment Spec In Lab Eufemia Copeland MD CHEMISTRY ORDERABL ES Performing Organization Address [facility] de Phone Number [facility] [place] [address] * Magnesium (07/05/2023 5:05 AM EDT) Pathologist [facility] Magnesium 1.01 0.69 - 1.07 mmol/L [facility] Blood 07/05/2023 5:05 AM EDT 07/05/2023 5:17 AM EDT Narrative Resulting Agency Comment Spec In Lab Eufemia Copeland MD CHEMISTRY ORDERABL ES Performing Organization Address [facility] de Phone Number [facility] [place] [address] * EKG 12 Lead (07/04/2023 11:41 AM EDT) Ventricular rate 76 BPM MUSE SYSTEM Atrial Rate 76 BPM MUSE SYSTEM P-R Interval 174 ms MUSE SYSTEM QRS Duration 88 ms MUSE SYSTEM Q-T Interval 450 ms MUSE SYSTEM QTC Calculated (Bezet) 506 ms MUSE SYSTEM Calculated P [place] 36 degrees MUSE SYSTEM Calculated R [place] 35 degrees MUSE SYSTEM Calculated T [place] 37 degrees MUSE SYSTEM INTERPRETATION Normal sinus rhythm Possible Left atrial enlargement Septal infarct , age undetermined Prolonged QT Abnormal ECG When compared with ECG of 03-JUL-2023 21:36, ST no longer depressed in Anterior leads Nonspecific T wave abnormality now evident in Anterior leads Confirmed by MD Henderson Katharine (Ashley) on 07/05/2023 6:21:29 AM MUSE SYSTEM 07/04/2023 11:4 1 AM EDT 07/05/2023 6:21 AM EDT Lisa Beck MD ECG ORDERABLES MUSE SYSTEM * Differential, Automated (07/04/2023 3:47 AM EDT) Neutrophils % 63.5 % [facility] Neutr Abs (ANC) 5.19 1.70 - 6.10 x10(3)/[facility] Lymphocytes % 24.4 % [facility] Lymphocytes Abs 2.0 0.9 - 3.2 x10(3)/[facility] Monocytes % 8.1 % [facility] Monocyte Abs 0.7 0.3 - 0.9 x10(3)/[facility] Eosinophils % 3.4 % [facility] Eosinophils Abs 0.3 0.0 - 0.4 x10(3)/[facility] Basophils % 0.4 % [facility] Basophils Abs 0.0 0.0 - 0.1 x10(3)/[facility] Immature Gran % 0.20 % [facility] Comment: Immature granulocytes(IG's)percentage and absolute count will include metamyelocytes, myelocytes, and promyelocytes. Blood smears from CBCs yielding IG's will be scanned manually for concordance. If this scan disagrees with the automated IG or if promyelocytes are noted, a manual differential will be performed. Shonda Gran Abs 0.02 0.00 - 0.04 x10(3)/[facility] Blood 07/04/2023 3:47 AM EDT 07/04/2023 4:15 AM EDT Narrative Resulting Agency Comment Spec In Lab Terrence Keating MD HEMATOLOGY ORDERABLE S [facility] [place] [address] * (ABNORMAL) Hemogram (07/04/2023 3:47 AM EDT) WBC 8.2 4.0 - 9.5 x10(3)/[facility] RBC 4.26 4.00 - 5.21 x10(6)/[facility] Hemoglobin 13.5 11.7 - 15.5 g/dL [facility] Hematocrit 40.0 35.7 - 45.8 % [facility] MCV 93.9 82.6 - 94.4 [facility] MCH 31.7 27.1 - 32.0 pg [facility] MCHC 33.8 31.7 - 35.0 g/dL [facility] Platelets 219 145 - 357 x10(3)/[facility] RDWSD 47.0(H) 37.0 - 46.0 [facility] RDWCV 13.7 11.5 - 14.1 % [facility] MPV 11.0 7.6 - 12.9 [facility] nRBC % Auto 0.0 % [facility] nRBC Abs Auto 0.000 0.000 - 0.000 x10(3)/[facility] Blood 07/04/2023 3:47 AM EDT 07/04/2023 4:15 AM EDT Narrative Resulting Agency Comment Spec In Lab Terrence Keating MD HEMATOLOGY ORDERABLE S [facility] [place] [address] * Heparin (unfractionated) Level (07/04/2023 3:47 AM EDT) Heparin UFH Level 0.44 IU/mL [facility] Comment: Heparin (anti-Xa) levels should [...] Lab Ailyn Irvin MD HEMATOLOGY ORDERABLE S [facility] [place] [address] * (ABNORMAL) Basic Metabolic Panel (non-fasting) (07/04/2023 3:47 AM EDT) [facility] Glucose Lvl 104 65 - 199 mg/dL [facility] Comment:Diabetes: >=200 mg/d L plus symptoms BUN 16 8 - 18 mg/dL [facility] Creatinine 1.28(H) 0.70 - 1.20 mg/dL [facility] Sodium 139 135 - 145 mmol/L [facility] Potassium 3.8 3.5 - 5.0 mmol/L [facility] Comment: Please note: ??Patients with WBC >100,000 may have falsely elevated Potassium levels. ??For accurate Potassium quantification in these patients send serum separator tube (gold top) for subsequent determinations. ??Contact the Clinical Chemistry Laboratory if there are any questions. Chloride 102 98 - 107 mmol/L [facility] CO2 21(L) 22 - 31 mmol/L [facility] Anion Gap 16(H) 5 - 15 mmol/L [facility] Calcium 9.5 8.5 - 10.5 mg/dL [facility] Estimated GFR 50(L) >=60 mL/min/1. 73 m?? [facility] Comment: This patient's estimated GFR [...] MD CHEMISTRY ORDERABL ES Performing Organization Address City/[facility]/ZIP Co de Phone Number [facility] [place] [address] * (ABNORMAL) Phosphorus (07/04/2023 3:47 AM EDT) Phosphorus 4.9(H) 2.5 - 4.5 mg/dL [facility] Blood 07/04/2023 3:47 AM EDT 07/04/2023 4:15 AM EDT Narrative Resulting Agency Comment Spec In Lab Eufemia Copeland MD CHEMISTRY ORDERABL ES [facility] [place] [address] * Magnesium (07/04/2023 3:47 AM EDT) Magnesium 1.05 0.69 - 1.07 mmol/L [facility] Blood 07/04/2023 3:47 AM EDT 07/04/2023 4:15 AM EDT Narrative Resulting Agency Comment Spec In Lab Eufemia Copeland MD CHEMISTRY ORDERABL ES Performing Organization Address [facility] [place] [address] * EKG 12 Lead (07/03/2023 9:36 PM EDT) Ventricular rate 61 BPM MUSE SYSTEM Atrial Rate 61 BPM MUSE SYSTEM P-R Interval 188 ms MUSE SYSTEM QRS Duration 88 ms MUSE SYSTEM Q-T Interval 512 ms MUSE SYSTEM QTC Calculated (Bezet) 515 ms MUSE SYSTEM Calculated P Marion 56 degrees MUSE SYSTEM Calculated R Marion 69 degrees MUSE SYSTEM Calculated T Marion 29 degrees MUSE SYSTEM INTERPRETATION Normal sinus rhythm Possible Lateral infarct (cited on or before 30-JUN-2023) Marked ST abnormality, possible inferior subendocardial injury Prolonged QT Abnormal ECG When compared with ECG of 03-JUL-2023 14:27, Nonspecific T wave abnormality no longer evident in Anterior leads Confirmed by MD Beatriz, Klarissa ([id number]) on 07/05/2023 6:21:08 AM MUSE SYSTEM 07/03/2023 9:36 PM EDT 07/05/2023 6:21 AM EDT Lisa Beck MD ECG ORDERABLES Performing Organization Address [facility] de Phone Number MUSE SYSTEM * Magnesium (07/03/2023 6:00 PM EDT) Magnesium 0.89 0.69 - 1.07 mmol/L [facility] Blood 07/03/2023 6:00 PM EDT 07/03/2023 6:07 PM EDT Narrative Resulting Agency Comment Spec In Lab Lino Calles MD CHEMISTRY ORDERABLES Performing Organization Address City/[facility]/ZIP Co de Phone Number [facility] [place] [address] * (ABNORMAL) Basic Metabolic Panel (non-fasting) (07/03/2023 6:00 PM EDT) Glucose Lvl 116 65 - 199 mg/dL [facility] Comment:Diabetes: >=200 mg/d L plus symptoms BUN 16 8 - 18 mg/dL [facility] Creatinine 1.37(H) 0.70 - 1.20 mg/dL [facility] Sodium 137 135 - 145 mmol/L [facility] Potassium 4.1 3.5 - 5.0 mmol/L [facility] Comment: Please note: ??Patients with WBC >100,000 may have falsely elevated Potassium levels. ??For accurate Potassium quantification in these patients send serum separator tube (gold top) for subsequent determinations. ??Contact the Clinical Chemistry Laboratory if there are any questions. Chloride 102 98 - 107 mmol/L [facility] CO2 21(L) 22 - 31 mmol/L [facility] Anion Gap 14 5 - 15 mmol/L [facility] Calcium 9.5 8.5 - 10.5 mg/dL [facility] Estimated GFR 46(L) >=60 mL/min/1. 73 m?? [facility] Comment: This patient's estimated GFR [...] In Lab Lino Calles MD CHEMISTRY ORDERABLES [facility] [place] [address] * XR Chest One View (07/03/2023 3:18 PM EDT) WORKSTATION ID [id number] RAD Anatomical Region Laterality Modality Chest N/A Digital Radiogra phy Impressions 07/03/2023 3:27 PM EDT No pulmonary edema or pleural effusion Thank you for letting us participate in the care of this patient. ??If you are a health care provider and have any questions regarding this report, please contact the number below. ??For patients who have questions please contact the health health care aide that requested 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 ? Electronically signed by: Itz Hayward MD, [facility] ??([phone]), at 07/03/2023 3:27 PM Narrative 07/03/2023 3:27 PM EDT EXAMINATION: XR [...] patients who have questions please contactthe health health care aide that requested 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 Electronically signed by: Itz Hayward MD, [facility]([phone]), at 07/03/2023 3:27 PM Lino Calles MD IMG DX ORDERABLES * Arterial Duplex Leg, Unil (07/03/2023 9:34 AM EDT) VB Text Report Department: Vascular Surgery Lab Patient: [id number] (LOIDA ROQUE) CPT: 25554 Referring Physician: LINO CALLES ?? Phone: Indications: [...] 3:07 AM EDT) Neutrophils % 67.2 % [facility] Neutr Abs (ANC) 5.51 1.70 - 6.10 x10(3)/[facility] Lymphocytes % 20.7 % [facility] Lymphocytes Abs 1.7 0.9 - 3.2 x10(3)/[facility] Monocytes % 7.7 % [facility] Monocyte Abs 0.6 0.3 - 0.9 x10(3)/[facility] Eosinophils % 3.7 % [facility] Eosinophils Abs 0.3 0.0 - 0.4 x10(3)/[facility] Basophils % 0.5 % [facility] Basophils Abs 0.0 0.0 - 0.1 x10(3)/[facility] Immature Gran % 0.20 % [facility] Comment: Immature granulocytes(IG's)percentage and absolute count will include metamyelocytes, myelocytes, and promyelocytes. Blood smears from CBCs yielding IG's will be scanned manually for concordance. If this scan disagrees with the automated IG or if promyelocytes are noted, a manual differential will be performed. Shonda Gran Abs 0.02 0.00 - 0.04 x10(3)/[facility] Blood 07/03/2023 3:07 AM EDT 07/03/2023 3:15 AM EDT Narrative Resulting Agency Comment Spec In Lab Terrence Keating MD HEMATOLOGY ORDERABLE S [facility] [place] [address] * (ABNORMAL) Hemogram (07/03/2023 3:07 AM EDT) Pathologist [facility] WBC 8.2 4.0 - 9.5 x10(3)/[facility] RBC 3.97(L) 4.00 - 5.21 x10(6)/[facility] Hemoglobin 12.5 11.7 - 15.5 g/dL [facility] Hematocrit 38.5 35.7 - 45.8 % [facility] MCV 97.0(H) 82.6 - 94.4 fL [facility] MCH 31.5 27.1 - 32.0 pg [facility] MCHC 32.5 31.7 - 35.0 g/dL [facility] Platelets 203 145 - 357 x10(3)/[facility] RDWSD 49.6(H) 37.0 - 46.0 [facility] RDWCV 13.7 11.5 - 14.1 % [facility] MPV 10.8 7.6 - 12.9 fL [facility] nRBC % Auto 0.0 % [facility] nRBC Abs Auto 0.000 0.000 - 0.000 x10(3)/[facility] Blood 07/03/2023 3:07 AM EDT 07/03/2023 3:15 AM EDT Narrative Resulting Agency Comment Spec In Lab Terrence Keating MD HEMATOLOGY ORDERABLE S [facility] [place] [address] * Heparin (unfractionated) Level (07/03/2023 3:07 AM EDT) Pathologist [facility] Heparin UFH Level 0.49 IU/mL [facility] Comment: Heparin (anti-Xa) levels should [...] Lab Ailyn Irvin MD HEMATOLOGY ORDERABLE S [facility] [address] * (ABNORMAL) Basic Metabolic Panel (non-fasting) (07/03/2023 3:07 AM EDT) Glucose Lvl 104 65 - 199 mg/dL [facility] Comment:Diabetes: >=200 mg/d L plus symptoms BUN 16 8 - 18 mg/dL [facility] Creatinine 1.20 0.70 - 1.20 mg/dL [facility] Sodium 138 135 - 145 mmol/L [facility] Potassium 4.2 3.5 - 5.0 mmol/L [facility] Comment: Please note: ??Patients with WBC >100,000 may have falsely elevated Potassium levels. ??For accurate Potassium quantification in these patients send serum separator tube (gold top) for subsequent determinations. ??Contact the Clinical Chemistry Laboratory if there are any questions. Chloride 107 98 - 107 mmol/L [facility] CO2 20(L) 22 - 31 mmol/L [facility] Anion Gap 11 5 - 15 mmol/L [facility] Calcium 8.8 8.5 - 10.5 mg/dL [facility] Estimated GFR 54(L) >=60 mL/min/1. 73 m?? [facility] Comment: This patient's estimated GFR [...] MD CHEMISTRY ORDERABL ES Performing Organization Address [facility] Co de Phone Number [facility] [place] [address] * Phosphorus (07/03/2023 3:07 AM EDT) Phosphorus 3.6 2.5 - 4.5 mg/dL [facility] Blood 07/03/2023 3:07 AM EDT 07/03/2023 3:15 AM EDT Narrative Resulting Agency Comment Spec In Lab Eufemia Copeland MD CHEMISTRY ORDERABL ES Performing Organization Address City/[facility] Co de Phone Number [facility] [place] [address] * Magnesium (07/03/2023 3:07 AM EDT) Magnesium 0.93 0.69 - 1.07 mmol/L [facility] Blood 07/03/2023 3:07 AM EDT 07/03/2023 3:15 AM EDT Narrative Resulting Agency Comment Spec In Lab Eufemia Copeland MD CHEMISTRY ORDERABL ES Performing Organization Address City/State/[facility] Co de Phone Number [facility] [place] [address] * Heparin (unfractionated) Level (07/02/2023 8:58 PM EDT) Heparin UFH Level 0.60 IU/mL [facility] Comment: Heparin (anti-Xa) levels should [...] MD HEMATOLOGY ORDERABLE S Performing Organization Address [facility] Co de Phone Number [facility] [place] [address] * VS Arteriogram Mesenteric Vascular Surgery (07/02/2023 [...] anesthetic: 10 cc 1% lidocaine Heparin: Yes 86629 ?? Units Protamine: No ??mg Antibiotics: Ancef [...] We exchanged the sheath for a 7 Occitan guide escort steerable sheath over a stiff wire. ??A Glidewire and Kumpe catheter were used to selectively cannulate the superior mesenteric artery. ??Direct angiography of the superior mesenteric artery was performed, confirming the results of the nonselective aortography performed. ??The lesion was predilated with a 4 mm x 40 mm [place] balloon, and then a 6 mm X [...] 3:58 AM EDT) Neutrophils % 61.3 % [facility] Neutr Abs (ANC) 4.67 1.70 - 6.10 x10(3)/[facility] Lymphocytes % 27.6 % [facility] Lymphocytes Abs 2.1 0.9 - 3.2 x10(3)/[facility] Monocytes % 6.4 % [facility] Monocyte Abs 0.5 0.3 - 0.9 x10(3)/[facility] Eosinophils % 3.9 % [facility] Eosinophils Abs 0.3 0.0 - 0.4 x10(3)/[facility] Basophils % 0.5 % [facility] Basophils Abs 0.0 0.0 - 0.1 x10(3)/[facility] Immature Gran % 0.30 % [facility] Comment: Immature granulocytes(IG's)percentage and absolute count will include metamyelocytes, myelocytes, and promyelocytes. Blood smears from CBCs yielding IG's will be scanned manually for concordance. If this scan disagrees with the automated IG or if promyelocytes are noted, a manual differential will be performed. Shonda Gran Abs 0.02 0.00 - 0.04 x10(3)/[facility] Blood 07/02/2023 3:58 AM EDT 07/02/2023 4:14 AM EDT Narrative Resulting Agency Comment Spec In Lab Terrence Keating MD HEMATOLOGY ORDERABLE S [facility] [place] [address] * (ABNORMAL) Hemogram (07/02/2023 3:58 AM EDT) Pathologist [facility] WBC 7.6 4.0 - 9.5 x10(3)/[facility] RBC 4.12 4.00 - 5.21 x10(6)/[facility] Hemoglobin 12.9 11.7 - 15.5 g/dL [facility] Hematocrit 39.5 35.7 - 45.8 % [facility] MCV 95.9(H) 82.6 - 94.4 [facility] MCH 31.3 27.1 - 32.0 pg [facility] MCHC 32.7 31.7 - 35.0 g/dL [facility] Platelets 200 145 - 357 x10(3)/[facility] RDWSD 47.4(H) 37.0 - 46.0 [facility] RDWCV 13.3 11.5 - 14.1 % [facility] MPV 10.8 7.6 - 12.9 [facility] nRBC % Auto 0.0 % [facility] nRBC Abs Auto 0.000 0.000 - 0.000 x10(3)/[facility] Blood 07/02/2023 3:58 AM EDT 07/02/2023 4:14 AM EDT Narrative Resulting Agency Comment Spec In Lab Terrence Keating MD HEMATOLOGY ORDERABLE S [facility] [place] [address] * Heparin (unfractionated) Level (07/02/2023 3:58 AM EDT) Pathologist [facility] Heparin UFH Level 0.57 IU/mL [facility] Comment: Heparin (anti-Xa) levels should [...] Lab Ailyn Irvin MD HEMATOLOGY ORDERABLE S [facility] [place] [address] * (ABNORMAL) Basic Metabolic Panel (non-fasting) (07/02/2023 3:58 AM EDT) Glucose Lvl 96 65 - 199 mg/dL [facility] Comment:Diabetes: >=200 mg/d L plus symptoms BUN 15 8 - 18 mg/dL [facility] Creatinine 1.21(H) 0.70 - 1.20 mg/dL [facility] Sodium 133(L) 135 - 145 mmol/L [facility] Potassium 4.1 3.5 - 5.0 mmol/L [facility] Comment: Please note: ??Patients with WBC >100,000 may have falsely elevated Potassium levels. ??For accurate Potassium quantification in these patients send serum separator tube (gold top) for subsequent determinations. ??Contact the Clinical Chemistry Laboratory if there are any questions. Chloride 104 98 - 107 mmol/L [facility] CO2 21(L) 22 - 31 mmol/L [facility] Anion Gap 8 5 - 15 mmol/L [facility] Calcium 8.8 8.5 - 10.5 mg/dL [facility] Estimated GFR 53(L) >=60 mL/min/1. 73 m?? [facility] Comment: This patient's estimated GFR [...] MD CHEMISTRY ORDERABL ES Performing Organization Address [facility] Co de Phone Number [facility] [place] [address] * Phosphorus (07/02/2023 3:58 AM EDT) Phosphorus 3.8 2.5 - 4.5 mg/dL [facility] Blood 07/02/2023 3:58 AM EDT 07/02/2023 4:14 AM EDT Narrative Resulting Agency Comment Spec In Lab Eufemia Copeland MD CHEMISTRY ORDERABL ES Performing Organization Address [facility] Co de Phone Number [facility] [place] [address] * Magnesium (07/02/2023 3:58 AM EDT) Magnesium 0.95 0.69 - 1.07 mmol/L [facility] Blood 07/02/2023 3:58 AM EDT 07/02/2023 4:14 AM EDT Narrative Resulting Agency Comment Spec In Lab Eufemia Copeland MD CHEMISTRY ORDERABL ES Performing Organization Address City/[facility] Co de Phone Number [facility] [place] [address] * EKG 12 Lead (07/01/2023 12:08 PM EDT) Ventricular rate 48 BPM MUSE SYSTEM Atrial Rate 48 BPM MUSE SYSTEM P-R Interval 192 ms MUSE SYSTEM QRS Duration 92 ms MUSE SYSTEM Q-T Interval 474 ms MUSE SYSTEM QTC Calculated (Bezet) 423 ms MUSE SYSTEM Calculated P Marion 32 degrees MUSE SYSTEM Calculated R Marion 45 degrees MUSE SYSTEM Calculated T Marion 0 degrees MUSE SYSTEM INTERPRETATION Sinus bradycardia [...] PM EDT Terrence Keating MD ECG ORDERABLES MUSE SYSTEM * Differential, Automated (07/01/2023 2:56 AM EDT) Pathologist [facility] Neutrophils % 50.5 % [facility] Neutr Abs (ANC) 3.47 1.70 - 6.10 x10(3)/[facility] Lymphocytes % 36.5 % [facility] Lymphocytes Abs 2.5 0.9 - 3.2 x10(3)/[facility] Monocytes % 7.7 % [facility] Monocyte Abs 0.5 0.3 - 0.9 x10(3)/[facility] Eosinophils % 4.5 % [facility] Eosinophils Abs 0.3 0.0 - 0.4 x10(3)/[facility] Basophils % 0.7 % [facility] Basophils Abs 0.0 0.0 - 0.1 x10(3)/[facility] Immature Gran % 0.10 % [facility] Comment: Immature granulocytes(IG's)percentage and absolute count will include metamyelocytes, myelocytes, and promyelocytes. Blood smears from CBCs yielding IG's will be scanned manually for concordance. If this scan disagrees with the automated IG or if promyelocytes are noted, a manual differential will be performed. Shonda Gran Abs 0.01 0.00 - 0.04 x10(3)/[facility] Blood 07/01/2023 2:56 AM EDT 07/01/2023 3:22 AM EDT Narrative Resulting Agency Comment Spec In Lab Terrence Keating MD HEMATOLOGY ORDERABLE S [facility] [place] [address] * (ABNORMAL) Hemogram (07/01/2023 2:56 AM EDT) WBC 6.9 4.0 - 9.5 x10(3)/[facility] RBC 4.04 4.00 - 5.21 x10(6)/[facility] Hemoglobin 12.8 11.7 - 15.5 g/dL [facility] Hematocrit 39.0 35.7 - 45.8 % [facility] MCV 96.5(H) 82.6 - 94.4 fL [facility] MCH 31.7 27.1 - 32.0 pg [facility] MCHC 32.8 31.7 - 35.0 g/dL [facility] Platelets 224 145 - 357 x10(3)/[facility] RDWSD 47.8(H) 37.0 - 46.0 fL [facility] RDWCV 13.3 11.5 - 14.1 % [facility] MPV 11.1 7.6 - 12.9 fL [facility] nRBC % Auto 0.0 % [facility] nRBC Abs Auto 0.000 0.000 - 0.000 x10(3)/mcL [facility] Blood 07/01/2023 2:56 AM EDT 07/01/2023 3:22 AM EDT Narrative Resulting Agency Comment Spec In Lab Terrence Keating MD HEMATOLOGY ORDERABLE S Performing Organization Address City/[facility]/ZIP Co de Phone Number [facility] [address] * Heparin (unfractionated) Level (07/01/2023 2:56 AM EDT) Heparin UFH Level 0.56 IU/mL [facility] Comment: Heparin (anti-Xa) levels should [...] Lab Ailyn Irvin MD HEMATOLOGY ORDERABLE S [facility] [place] [address] * (ABNORMAL) Basic Metabolic Panel (non-fasting) (07/01/2023 2:56 AM EDT) Glucose Lvl 95 65 - 199 mg/dL [facility] Comment:Diabetes: >=200 mg/d L plus symptoms BUN 16 8 - 18 mg/dL [facility] Creatinine 1.21(H) 0.70 - 1.20 mg/dL [facility] Sodium 137 135 - 145 mmol/L [facility] Potassium 4.1 3.5 - 5.0 mmol/L [facility] Comment: Please note: ??Patients with WBC >100,000 may have falsely elevated Potassium levels. ??For accurate Potassium quantification in these patients send serum separator tube (gold top) for subsequent determinations. ??Contact the Clinical Chemistry Laboratory if there are any questions. Chloride 105 98 - 107 mmol/L [facility] CO2 22 22 - 31 mmol/L [facility] Anion Gap 10 5 - 15 mmol/L [facility] Calcium 9.0 8.5 - 10.5 mg/dL [facility] Estimated GFR 53(L) >=60 mL/min/1. 73 m?? [facility] Comment: This patient's estimated GFR [...] Lab Eufemia Copeland MD CHEMISTRY ORDERABL ES [facility] [place] [address] * Phosphorus (07/01/2023 2:56 AM EDT) Phosphorus 4.1 2.5 - 4.5 mg/dL [facility] Blood 07/01/2023 2:56 AM EDT 07/01/2023 3:22 AM EDT Narrative Resulting Agency Comment Spec In Lab Eufemia Copeland MD CHEMISTRY ORDERABL ES Performing Organization Address [facility] Co de Phone Number [facility] [address] * Magnesium (07/01/2023 2:56 AM EDT) Magnesium 0.95 0.69 - 1.07 mmol/L [facility] Blood 07/01/2023 2:56 AM EDT 07/01/2023 3:22 AM EDT Narrative Resulting Agency Comment Spec In Lab Eufemia Copeland MD CHEMISTRY ORDERABL ES Performing Organization Address [facility] de Phone Number [facility] [place] [address] * Heparin (unfractionated) Level (06/30/2023 9:24 AM EDT) Heparin UFH Level 0.62 IU/mL [facility] Comment: Heparin (anti-Xa) levels should [...] MD HEMATOLOGY ORDERABLE S Performing Organization Address [facility] Co de Phone Number [place] [address] * Differential, Automated (06/30/2023 3:14 AM EDT) Neutrophils % 49.5 % [facility] Neutr Abs (ANC) 3.96 1.70 - 6.10 x10(3)/[facility] Lymphocytes % 36.6 % [facility] Lymphocytes Abs 2.9 0.9 - 3.2 x10(3)/[facility] Monocytes % 8.6 % [facility] Monocyte Abs 0.7 0.3 - 0.9 x10(3)/[facility] Eosinophils % 4.1 % [facility] Eosinophils Abs 0.3 0.0 - 0.4 x10(3)/[facility] Basophils % 0.8 % [facility] Basophils Abs 0.1 0.0 - 0.1 x10(3)/[facility] Immature Gran % 0.40 % [facility] Comment: Immature granulocytes(IG's)percentage and absolute count will include metamyelocytes, myelocytes, and promyelocytes. Blood smears from CBCs yielding IG's will be scanned manually for concordance. If this scan disagrees with the automated IG or if promyelocytes are noted, a manual differential will be performed. Shonda Gran Abs 0.03 0.00 - 0.04 x10(3)/[facility] Blood 06/30/2023 3:14 AM EDT 06/30/2023 3:23 AM EDT Narrative Resulting Agency Comment Spec In Lab Terrence Keating MD [place] [address] * Hemogram (06/30/2023 3:14 AM EDT) WBC 8.0 4.0 - 9.5 x10(3)/[facility] RBC 4.22 4.00 - 5.21 x10(6)/[facility] Hemoglobin 13.1 11.7 - 15.5 g/dL [facility] Hematocrit 39.5 35.7 - 45.8 % [facility] MCV 93.6 82.6 - 94.4 fL [facility] MCH 31.0 27.1 - 32.0 pg [facility] MCHC 33.2 31.7 - 35.0 g/dL [facility] Platelets 235 145 - 357 x10(3)/[facility] RDWSD 45.3 37.0 - 46.0 fL [facility] RDWCV 13.3 11.5 - 14.1 % [facility] MPV 11.0 7.6 - 12.9 fL [facility] nRBC % Auto 0.0 % [facility] nRBC Abs Auto 0.000 0.000 - 0.000 x10(3)/[facility] Blood 06/30/2023 3:14 AM EDT 06/30/2023 3:23 AM EDT Narrative Resulting Agency Comment Spec In Lab Terrence Keating MD HEMATOLOGY ORDERABLE S [facility] [place] [address] * Heparin (unfractionated) Level (06/30/2023 3:14 AM EDT) Heparin UFH Level 0.70 IU/mL [facility] Comment: Heparin (anti-Xa) levels should [...] Lab Terrence Keating MD HEMATOLOGY ORDERABLE S [facility] [place] [address] * (ABNORMAL) Basic Metabolic Panel (non-fasting) (06/30/2023 3:14 AM EDT) Glucose Lvl 103 65 - 199 mg/dL [facility] Comment:Diabetes: >=200 mg/d L plus symptoms BUN 18 8 - 18 mg/dL [facility] Creatinine 1.22(H) 0.70 - 1.20 mg/dL [facility] Sodium 137 135 - 145 mmol/L [facility] Potassium 3.8 3.5 - 5.0 mmol/L [facility] Comment: Please note: ??Patients with WBC >100,000 may have falsely elevated Potassium levels. ??For accurate Potassium quantification in these patients send serum separator tube (gold top) for subsequent determinations. ??Contact the Clinical Chemistry Laboratory if there are any questions. Chloride 104 98 - 107 mmol/L [facility] CO2 23 22 - 31 mmol/L [facility] Anion Gap 10 5 - 15 mmol/L [facility] Calcium 9.1 8.5 - 10.5 mg/dL [facility] Estimated GFR 53(L) >=60 mL/min/1. 73 m?? [facility] Comment: This patient's estimated GFR [...] MD CHEMISTRY ORDERABL ES Performing Organization Address [facility] Co de Phone Number [facility] [address] * Phosphorus (06/30/2023 3:14 AM EDT) Phosphorus 4.4 2.5 - 4.5 mg/dL [facility] Blood 06/30/2023 3:14 AM EDT 06/30/2023 3:23 AM EDT Narrative Resulting Agency Comment Spec In Lab Eufemia Copeland MD CHEMISTRY ORDERABL ES Performing Organization Address [facility] de Phone Number [facility] [address] * Magnesium (06/30/2023 3:14 AM EDT) Magnesium 0.94 0.69 - 1.07 mmol/L [facility] Blood 06/30/2023 3:14 AM EDT 06/30/2023 3:23 AM EDT Narrative Resulting Agency Comment Spec In Lab Eufemia Copeland MD CHEMISTRY ORDERABL ES Performing Organization Address [facility] Phone Number [facility] [address] * Heparin (unfractionated) Level (06/29/2023 8:47 PM EDT) Heparin UFH Level 0.75 IU/mL [facility] Comment: Heparin (anti-Xa) levels should [...] MD HEMATOLOGY ORDERABLE S Performing Organization Address City/[facility]/ZIP Co de Phone Number [facility] [address] * EKG 12 Lead (06/29/2023 12:55 PM EDT) Ventricular rate 53 BPM MUSE SYSTEM Atrial Rate 53 BPM MUSE SYSTEM P-R Interval 196 ms MUSE SYSTEM QRS Duration 90 ms MUSE SYSTEM Q-T Interval 564 ms MUSE SYSTEM QTC Calculated (Bezet) 529 ms MUSE SYSTEM Calculated P Marion 30 degrees MUSE SYSTEM Calculated R Marion 53 degrees MUSE SYSTEM Calculated T Marion 5 degrees MUSE SYSTEM INTERPRETATION Sinus bradycardia Marked ST abnormality, possible inferior subendocardial injury Prolonged QT Abnormal ECG When compared with ECG of 26-JUN-2023 06:04, Nonspecific T wave abnormality no longer evident in Anterolateral leads QT has lengthened Confirmed by MD Angelo Danette ([id number]) on 06/29/2023 8:34:43 PM MUSE SYSTEM 06/29/2023 12:5 5 PM EDT 06/29/2023 8:34 PM EDT Terrence Keating MD ECG ORDERABLES Performing Organization Address City/[facility]/ZIP Co de Phone Number MUSE SYSTEM * (ABNORMAL) Heparin (unfractionated) Level (06/29/2023 11:34 AM EDT) [facility] Heparin UFH Level 1.41(Crit ical) IU/mL [facility] Comment: Critical Result called by ?? OPAL CRITICAL Results read back by: ? Chilo PJessi Krishan at 2023-06-29 12:14:07 Heparin (anti-Xa) levels should [...] Lab Ailyn Irvin MD HEMATOLOGY ORDERABLE S [facility] [place] [address] * Differential, Automated (06/29/2023 2:39 AM EDT) [facility] Neutrophils % 53.8 % [facility] Neutr Abs (ANC) 4.46 1.70 - 6.10 x10(3)/[facility] Lymphocytes % 33.5 % [facility] Lymphocytes Abs 2.8 0.9 - 3.2 x10(3)/[facility] Monocytes % 8.3 % [facility] Monocyte Abs 0.7 0.3 - 0.9 x10(3)/[facility] Eosinophils % 3.5 % [facility] Eosinophils Abs 0.3 0.0 - 0.4 x10(3)/[facility] Basophils % 0.5 % [facility] Basophils Abs 0.0 0.0 - 0.1 x10(3)/[facility] Immature Gran % 0.40 % [facility] Comment: Immature granulocytes(IG's)percentage and absolute count will include metamyelocytes, myelocytes, and promyelocytes. Blood smears from CBCs yielding IG's will be scanned manually for concordance. If this scan disagrees with the automated IG or if promyelocytes are noted, a manual differential will be performed. Shonda Gran Abs 0.03 0.00 - 0.04 x10(3)/[facility] Blood 06/29/2023 2:39 AM EDT 06/29/2023 3:33 AM EDT Narrative Resulting Agency Comment Spec In Lab Terrence Keating MD HEMATOLOGY ORDERABLE S [facility] [place] [address] * Hemogram (06/29/2023 2:39 AM EDT) WBC 8.3 4.0 - 9.5 x10(3)/[facility] RBC 4.19 4.00 - 5.21 x10(6)/[facility] Hemoglobin 13.2 11.7 - 15.5 g/dL [facility] Hematocrit 38.9 35.7 - 45.8 % [facility] MCV 92.8 82.6 - 94.4 fL [facility] MCH 31.5 27.1 - 32.0 pg [facility] MCHC 33.9 31.7 - 35.0 g/dL [facility] Platelets 237 145 - 357 x10(3)/[facility] RDWSD 45.3 37.0 - 46.0 fL [facility] RDWCV 13.3 11.5 - 14.1 % [facility] MPV 11.4 7.6 - 12.9 fL [facility] nRBC % Auto 0.0 % [facility] nRBC Abs Auto 0.000 0.000 - 0.000 x10(3)/mcL [facility] Blood 06/29/2023 2:39 AM EDT 06/29/2023 3:33 AM EDT Narrative Resulting Agency Comment Spec In Lab Terrence Keating MD HEMATOLOGY ORDERABLE S [facility] [place] [address] * (ABNORMAL) Heparin (unfractionated) Level (06/29/2023 2:39 AM EDT) Heparin UFH Level 1.77(Crit ical) IU/mL [facility] Comment: Specimen drawn more than one hour prior to testing. Results may not be reliable for heparin monitoring. Result may be falsely low. Critical Result called by ?? LILIANA CRITICAL Results read back by: ? Guilherme [...] Lab Ailyn Irvin MD HEMATOLOGY ORDERABLE S [facility] [place] [address] * (ABNORMAL) Basic Metabolic Panel (non-fasting) (06/29/2023 2:39 AM EDT) Glucose Lvl 100 65 - 199 mg/dL [facility] Comment:Diabetes: >=200 mg/d L plus symptoms BUN 21(H) 8 - 18 mg/dL [facility] Creatinine 1.17 0.70 - 1.20 mg/dL [facility] Sodium 138 135 - 145 mmol/L [facility] Potassium 3.9 3.5 - 5.0 mmol/L [facility] Comment: Please note: ??Patients with WBC >100,000 may have falsely elevated Potassium levels. ??For accurate Potassium quantification in these patients send serum separator tube (gold top) for subsequent determinations. ??Contact the Clinical Chemistry Laboratory if there are any questions. Chloride 105 98 - 107 mmol/L [facility] CO2 22 22 - 31 mmol/L [facility] Anion Gap 11 5 - 15 mmol/L [facility] Calcium 9.1 8.5 - 10.5 mg/dL [facility] Estimated GFR 55(L) >=60 mL/min/1. 73 m?? [facility] Comment: This patient's estimated GFR [...] MD CHEMISTRY ORDERABL ES Performing Organization Address [facility] Co de Phone Number [facility] [address] * Phosphorus (06/29/2023 2:39 AM EDT) Phosphorus 4.0 2.5 - 4.5 mg/dL [facility] Blood 06/29/2023 2:39 AM EDT 06/29/2023 3:33 AM EDT Narrative Resulting Agency Comment Spec In Lab Eufemia Copeland MD CHEMISTRY ORDERABL ES Performing Organization Address [facility] de Phone Number [facility] [place] [address] * Magnesium (06/29/2023 2:39 AM EDT) Magnesium 0.92 0.69 - 1.07 mmol/L [facility] Blood 06/29/2023 2:39 AM EDT 06/29/2023 3:33 AM EDT Narrative Resulting Agency Comment Spec In Lab Eufemia Copeland MD CHEMISTRY ORDERABL ES Performing Organization Address [facility] de Phone Number [facility] [address] * US Abdomen Limited (06/28/2023 12:22 PM EDT) WORKSTATION ID [id number] RAD Anatomical Region Laterality Modality Abdomen Ultrasound [...] PM Electronically signed by: Sigrid Owens MD, [facility] ([phone]), at 06/28/2023 2:02 PM Thank you for letting us participate in the care of this patient. If you are a health care provider and have any questions regarding this report, please contact the number above. For patients who have questions, please contact the health health care aide that requested 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 ?Sigrid Owens, [facility] Senior C Software Developer Electronically Signed Final Report ?? 06/28/2023 02:08 pm Narrative 06/28/2023 2:08 PM EDT Abdominal ? (Signed Final 06/28/2023 02:08 pm) PATIENT INFO: ID #: ? [id number] ?: ??[birth year] (53 yrs)(F) Name: ? LOIDA ?Visit Date: 06/28/2023 12:20 pm ? JUDE PERFORMED BY: Attending: ?Sigrid Owens MD Resident: ? Rafaela Huddleston MD Performed By: ? Rick STANFORD, ??Deena Referred By: ?AILYN IRVIN Location: ? [facility] SERVICE(S) PROVIDED: UABDLIM - Abdominal Limited Survey Single ? 73534 Organ or Quadrant - [id number] INDICATIONS: RUQ pain, R/o Gall bladder colic, [...] 06/28/2023 02:08 pm) PATIENT INFO: ID #: [id number] : [birth year] (53 yrs)(F) Name: LOIDA Visit Date: 06/28/2023 12:20 pm JUDE PERFORMED BY: Attending: Sigrid Owens MD Resident: Rafaela Huddleston MD Performed By: Deena Cabrera RDMS Referred By: AILYN IRVIN Location: [facility] SERVICE(S) PROVIDED: UABDLIM - Abdominal Limited Survey Single [id number] Organ or Quadrant - [id number] INDICATIONS: RUQ pain, R/o Gall bladder colic, [...] PM Electronically signed by: Sigrid Owens MD, [facility] ([phone]), at 06/28/2023 2:02 PM Thank you for letting us participate in the care of this patient. If you are a health care provider and have any questions regarding this report, please contact the number above. For patients who have questions, please contact the health health care aide that requested 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 Sigrid Owens, E Senior C Software Developer Electronically Signed Final Report 06/28/2023 02:08 pm Ailyn Irvin MD IMG US GEN ORDERABLE S * Duplex Study Visceral Arteries, Comp (06/28/2023 10:19 AM EDT) VB Text Report Department: Vascular Surgery Lab Patient: [id number] (LOIDA ROQUE) CPT: 32677 Referring Physician: HEIDY SULLIVAN ?? Indications: abdominal pain, ? patency/stenosi s Findings: Unilateral ? Waveform ? PSV cm/s ??EDV cm/s ??Patent ?? Dary Visceral Aorta ? 80 ?16 ? Celiac Artery, Proximal ??Somervell-Biphasic ? 119 ?26 ? Celiac Artery, Mid ? [place]-Biphasic ? 115 ?21 ? Celiac Artery, Distal ? No Vis ?? Sup Mes Artery Proximal ??Biphasic ?427 ?91 ? Sup Mes Artery Middle ?[place]ell-Biphasic ? 100 ?17 ? Sup Mes Artery Distal ?[place]ell-Biphasic ?64 ?15 ? Hepatic Artery ?No Vis [...] 1:52 AM EDT) Neutrophils % 55.3 % [facility] Neutr Abs (ANC) 4.46 1.70 - 6.10 x10(3)/[facility] Lymphocytes % 30.6 % [facility] Lymphocytes Abs 2.5 0.9 - 3.2 x10(3)/[facility] Monocytes % 8.8 % [facility] Monocyte Abs 0.7 0.3 - 0.9 x10(3)/[facility] Eosinophils % 4.6 % [facility] Eosinophils Abs 0.4 0.0 - 0.4 x10(3)/[facility] Basophils % 0.5 % [facility] Basophils Abs 0.0 0.0 - 0.1 x10(3)/[facility] Immature Gran % 0.20 % [facility] Comment: Immature granulocytes(IG's)percentage and absolute count will include metamyelocytes, myelocytes, and promyelocytes. Blood smears from CBCs yielding IG's will be scanned manually for concordance. If this scan disagrees with the automated IG or if promyelocytes are noted, a manual differential will be performed. Shonda Gran Abs 0.02 0.00 - 0.04 x10(3)/[facility] Blood 06/28/2023 1:52 AM EDT 06/28/2023 2:05 AM EDT Narrative Resulting Agency Comment Spec In Lab Terrence Keating MD HEMATOLOGY ORDERABLE S [facility] [place] [address] * Hemogram (06/28/2023 1:52 AM EDT) WBC 8.1 4.0 - 9.5 x10(3)/[facility] RBC 4.30 4.00 - 5.21 x10(6)/[facility] Hemoglobin 13.4 11.7 - 15.5 g/dL [facility] Hematocrit 40.6 35.7 - 45.8 % [facility] MCV 94.4 82.6 - 94.4 [facility] MCH 31.2 27.1 - 32.0 pg [facility] MCHC 33.0 31.7 - 35.0 g/dL [facility] Platelets 238 145 - 357 x10(3)/[facility] RDWSD 45.7 37.0 - 46.0 [facility] RDWCV 13.2 11.5 - 14.1 % [facility] MPV 10.8 7.6 - 12.9 [facility] nRBC % Auto 0.0 % [facility] nRBC Abs Auto 0.000 0.000 - 0.000 x10(3)/[facility] Blood 06/28/2023 1:52 AM EDT 06/28/2023 2:05 AM EDT Narrative Resulting Agency Comment Spec In Lab Terrence Keating MD HEMATOLOGY ORDERABLE S [facility] [place] [address] * (ABNORMAL) Basic Metabolic Panel (non-fasting) (06/28/2023 1:52 AM EDT) Glucose Lvl 101 65 - 199 mg/dL [facility] Comment:Diabetes: >=200 mg/d L plus symptoms BUN 24(H) 8 - 18 mg/dL [facility] Creatinine 1.21(H) 0.70 - 1.20 mg/dL [facility] Sodium 138 135 - 145 mmol/L [facility] Potassium 4.0 3.5 - 5.0 mmol/L [facility] Comment: Please note: ??Patients with WBC >100,000 may have falsely elevated Potassium levels. ??For accurate Potassium quantification in these patients send serum separator tube (gold top) for subsequent determinations. ??Contact the Clinical Chemistry Laboratory if there are any questions. Chloride 105 98 - 107 mmol/L [facility] CO2 21(L) 22 - 31 mmol/L [facility] Anion Gap 12 5 - 15 mmol/L [facility] Calcium 9.0 8.5 - 10.5 mg/dL [facility] Estimated GFR 53(L) >=60 mL/min/1. 73 m?? [facility] Comment: This patient's estimated GFR [...] MD CHEMISTRY ORDERABL ES Performing Organization Address [facility]/ZIP Co de Phone Number [facility] [place] [address] * Phosphorus (06/28/2023 1:52 AM EDT) Phosphorus 4.5 2.5 - 4.5 mg/dL [facility] Blood 06/28/2023 1:52 AM EDT 06/28/2023 2:05 AM EDT Narrative Resulting Agency Comment Spec In Lab Eufemia Copeland MD CHEMISTRY ORDERABL ES Performing Organization Address City/[facility]/ZIP Co de Phone Number [facility] [place] [address] * Magnesium (06/28/2023 1:52 AM EDT) Magnesium 0.93 0.69 - 1.07 mmol/L [facility] Blood 06/28/2023 1:52 AM EDT 06/28/2023 2:05 AM EDT Narrative Resulting Agency Comment Spec In Lab Eufemia Copeland MD CHEMISTRY ORDERABL ES [facility] [address] * (ABNORMAL) Basic Metabolic Panel (non-fasting) (06/27/2023 8:06 PM EDT) Glucose Lvl 94 65 - 199 mg/dL [facility] Comment:Diabetes: >=200 mg/d L plus symptoms BUN 24(H) 8 - 18 mg/dL [facility] Creatinine 1.28(H) 0.70 - 1.20 mg/dL [facility] Sodium 141 135 - 145 mmol/L [facility] Potassium 4.3 3.5 - 5.0 mmol/L [facility] Comment: Please note: ??Patients with WBC >100,000 may have falsely elevated Potassium levels. ??For accurate Potassium quantification in these patients send serum separator tube (gold top) for subsequent determinations. ??Contact the Clinical Chemistry Laboratory if there are any questions. Chloride 106 98 - 107 mmol/L [facility] CO2 24 22 - 31 mmol/L [facility] Anion Gap 11 5 - 15 mmol/L [facility] Calcium 9.3 8.5 - 10.5 mg/dL [facility] Estimated GFR 50(L) >=60 mL/min/1. 73 m?? [facility] Comment: This patient's estimated GFR [...] Irvin MD CHEMISTRY ORDERABLES Performing Organization Address City/[facility]/ZIP Co de Phone Number [facility] [address] * (ABNORMAL) Hepatic Function Panel (06/27/2023 4:34 AM EDT) Total Protein 6.4 6.1 - 8.0 g/dL [facility] Albumin 3.8 3.2 - 5.2 g/dL [facility] AST 21 0 - 30 unit/L [facility] ALT 22 0 - 30 unit/L [facility] Alk Phos 56 35 - 105 unit/L [facility] Total Bilirubin <0.2(L) 0.2 - 1.3 mg/dL [facility] Bili, Direct <0.1 0.0 - 0.3 mg/dL [facility] Blood Venous Draw / Unknown 06/27/2023 4:34 AM EDT 06/27/2023 4:53 AM EDT Narrative Resulting Agency Comment Spec In Lab Ailyn Irvin MD CHEMISTRY ORDERABLES Performing Organization Address City/[facility]/ZIP Co de Phone Number [facility] [address] * Differential, Automated (06/27/2023 4:34 AM EDT) Neutrophils % 52.7 % [facility] Neutr Abs (ANC) 4.01 1.70 - 6.10 x10(3)/[facility] Lymphocytes % 33.8 % [facility] Lymphocytes Abs 2.6 0.9 - 3.2 x10(3)/[facility] Monocytes % 8.8 % [facility] Monocyte Abs 0.7 0.3 - 0.9 x10(3)/[facility] Eosinophils % 3.8 % [facility] Eosinophils Abs 0.3 0.0 - 0.4 x10(3)/[facility] Basophils % 0.5 % [facility] Basophils Abs 0.0 0.0 - 0.1 x10(3)/[facility] Immature Gran % 0.40 % [facility] Comment: Immature granulocytes(IG's)percentage and absolute count will include metamyelocytes, myelocytes, and promyelocytes. Blood smears from CBCs yielding IG's will be scanned manually for concordance. If this scan disagrees with the automated IG or if promyelocytes are noted, a manual differential will be performed. Shonda Gran Abs 0.03 0.00 - 0.04 x10(3)/[facility] Blood 06/27/2023 4:34 AM EDT 06/27/2023 4:51 AM EDT Narrative Resulting Agency Comment Spec In Lab Terrence Keating MD HEMATOLOGY ORDERABLE S [facility] [place] [address] * Hemogram (06/27/2023 4:34 AM EDT) WBC 7.6 4.0 - 9.5 x10(3)/[facility] RBC 4.15 4.00 - 5.21 x10(6)/[facility] Hemoglobin 12.9 11.7 - 15.5 g/dL [facility] Hematocrit 39.0 35.7 - 45.8 % [facility] MCV 94.0 82.6 - 94.4 fL [facility] MCH 31.1 27.1 - 32.0 pg [facility] MCHC 33.1 31.7 - 35.0 g/dL [facility] Platelets 245 145 - 357 x10(3)/[facility] RDWSD 45.2 37.0 - 46.0 fL [facility] RDWCV 13.2 11.5 - 14.1 % [facility] MPV 11.2 7.6 - 12.9 fL [facility] nRBC % Auto 0.0 % [facility] nRBC Abs Auto 0.000 0.000 - 0.000 x10(3)/[facility] Blood 06/27/2023 4:34 AM EDT 06/27/2023 4:51 AM EDT Narrative Resulting Agency Comment Spec In Lab Terrence Keating MD HEMATOLOGY ORDERABLE S [facility] [place] [address] * (ABNORMAL) Basic Metabolic Panel (non-fasting) (06/27/2023 4:34 AM EDT) Glucose Lvl 99 65 - 199 mg/dL [facility] Comment:Diabetes: >=200 mg/d L plus symptoms BUN 26(H) 8 - 18 mg/dL [facility] Creatinine 1.22(H) 0.70 - 1.20 mg/dL [facility] Sodium 138 135 - 145 mmol/L [facility] Potassium 3.9 3.5 - 5.0 mmol/L [facility] Comment: Please note: ??Patients with WBC >100,000 may have falsely elevated Potassium levels. ??For accurate Potassium quantification in these patients send serum separator tube (gold top) for subsequent determinations. ??Contact the Clinical Chemistry Laboratory if there are any questions. Chloride 105 98 - 107 mmol/L [facility] CO2 22 22 - 31 mmol/L [facility] Anion Gap 11 5 - 15 mmol/L [facility] Calcium 9.1 8.5 - 10.5 mg/dL [facility] Estimated GFR 53(L) >=60 mL/min/1. 73 m?? [facility] Comment: This patient's estimated GFR [...] MD CHEMISTRY ORDERABL ES Performing Organization Address [facility]/ZIP Co de Phone Number [facility] [place] [address] * (ABNORMAL) Phosphorus (06/27/2023 4:34 AM EDT) Phosphorus 4.7(H) 2.5 - 4.5 mg/dL [facility] Blood 06/27/2023 4:34 AM EDT 06/27/2023 4:51 AM EDT Narrative Resulting Agency Comment Spec In Lab Eufemia Copeland MD CHEMISTRY ORDERABL ES Performing Organization Address City/[facility]/ZIP Co de Phone Number [facility] [place] [address] * Magnesium (06/27/2023 4:34 AM EDT) Magnesium 0.90 0.69 - 1.07 mmol/L [facility] Blood 06/27/2023 4:34 AM EDT 06/27/2023 4:51 AM EDT Narrative Resulting Agency Comment Spec In Lab Eufemia Copeland MD CHEMISTRY ORDERABL ES [facility] [place] [address] * (ABNORMAL) Basic Metabolic Panel (non-fasting) (06/26/2023 4:58 PM EDT) Pathologist [facility] Glucose Lvl 106 65 - 199 mg/dL [facility] Comment:Diabetes: >=200 mg/d L plus symptoms BUN 24(H) 8 - 18 mg/dL [facility] Creatinine 1.23(H) 0.70 - 1.20 mg/dL [facility] Sodium 138 135 - 145 mmol/L [facility] Potassium 4.2 3.5 - 5.0 mmol/L [facility] Comment: Please note: ??Patients with WBC >100,000 may have falsely elevated Potassium levels. ??For accurate Potassium quantification in these patients send serum separator tube (gold top) for subsequent determinations. ??Contact the Clinical Chemistry Laboratory if there are any questions. Chloride 104 98 - 107 mmol/L [facility] CO2 21(L) 22 - 31 mmol/L [facility] Anion Gap 13 5 - 15 mmol/L [facility] Calcium 9.1 8.5 - 10.5 mg/dL [facility] Estimated GFR 52(L) >=60 mL/min/1. 73 m?? [facility] Comment: This patient's estimated GFR [...] Irvin MD CHEMISTRY ORDERABLES Performing Organization Address City/[facility]/ZIP Co de Phone Number [facility] [place] [address] * Urinalysis Microscopic Exam (06/26/2023 11:09 AM EDT) RBC UA 0 0 - 4 /HPF [facility] WBC UA 3 0 - 5 /HPF [facility] Squam Epith UA 1 <=4 /HPF [facility] Hyaline Cast UA 1 0 - 2 /LPF [facility] Clean Catch Urine 06/26/2023 11:09 AM EDT 06/26/2023 5:45 PM EDT Narrative Resulting Agency Comment Spec In Lab Ailyn Irvin MD URINE ORDERABLES Performing Organization Address [facility] Co de Phone Number [facility] [address] * (ABNORMAL) Urinalysis with reflex Culture (06/26/2023 11:09 AM EDT) Glucose UA Negative Negative mg/dL [facility] Protein UA Negative Negative mg/dL [facility] Bilirubin UA Negative Negative mg/dL [facility] Comment: Clinical correlation required for positive Urine Bilirubin results as false positive may occur with some drugs and drug related products. If a false positive is suspected a serum total bilirubin should be considered if clinically indicated. Urobilinogen UA Normal Normal mg/dL [facility] pH UA 6.0 5.0 - 8.0 [facility] Blood UA Negative Negative mg/dL [facility] Ketones UA Negative Negative mg/dL [facility] Nitrite UA Negative Negative [facility] Leukocytes UA Trace(A) Negative mcL [facility] Appearance UA Clear Clear [facility] Spec [place] UA 1.013 1.005 - 1.030 [facility] Color UA Yellow Yellow [facility] Culture Reflexed No [facility] Clean Catch Urine 06/26/2023 11:09 AM EDT 06/26/2023 5:45 PM EDT Narrative Resulting Agency Comment Spec In Lab Ailyn Irvin MD URINE ORDERABLES Performing Organization Address City/[facility] Co de Phone Number [facility] [place] [address] * EKG 12 Lead (06/26/2023 6:04 AM EDT) Ventricular rate 46 BPM MUSE SYSTEM Atrial Rate 46 BPM MUSE SYSTEM P-R Interval 204 ms MUSE SYSTEM QRS Duration 90 ms MUSE SYSTEM Q-T Interval 466 ms MUSE SYSTEM QTC Calculated (Bezet) 407 ms MUSE SYSTEM Calculated P [place] 38 degrees MUSE SYSTEM Calculated R [place] 48 degrees MUSE SYSTEM Calculated T [place] 13 degrees MUSE SYSTEM INTERPRETATION Sinus bradycardia Nonspecific ST and T wave abnormality Abnormal ECG When compared with ECG of 23-JUN-2023 09:54, No significant change was found Confirmed by MD Dalia, Willy Huerta ([id number]) on 06/29/2023 6:09:20 AM MUSE SYSTEM 06/26/2023 6:04 AM EDT 06/29/2023 6:09 AM EDT Eufemia Copeland MD ECG ORDERABLES Performing Organization Address City/[facility]/ZIP Co de Phone Number MUSE SYSTEM * Differential, Automated (06/26/2023 4:06 AM EDT) Neutrophils % 55.3 % [facility] Neutr Abs (ANC) 4.63 1.70 - 6.10 x10(3)/[facility] Lymphocytes % 32.6 % [facility] Lymphocytes Abs 2.7 0.9 - 3.2 x10(3)/[facility] Monocytes % 8.2 % [facility] Monocyte Abs 0.7 0.3 - 0.9 x10(3)/[facility] Eosinophils % 3.2 % [facility] Eosinophils Abs 0.3 0.0 - 0.4 x10(3)/[facility] Basophils % 0.5 % [facility] Basophils Abs 0.0 0.0 - 0.1 x10(3)/[facility] Immature Gran % 0.20 % [facility] Comment: Immature granulocytes(IG's)percentage and absolute count will include metamyelocytes, myelocytes, and promyelocytes. Blood smears from CBCs yielding IG's will be scanned manually for concordance. If this scan disagrees with the automated IG or if promyelocytes are noted, a manual differential will be performed. Shonda Gran Abs 0.02 0.00 - 0.04 x10(3)/[facility] Blood 06/26/2023 4:06 AM EDT 06/26/2023 4:18 AM EDT Narrative Resulting Agency Comment Spec In Lab Terrence Keating MD HEMATOLOGY ORDERABLE S [facility] [address] * (ABNORMAL) Hemogram (06/26/2023 4:06 AM EDT) WBC 8.4 4.0 - 9.5 x10(3)/[facility] RBC 4.52 4.00 - 5.21 x10(6)/[facility] Hemoglobin 14.0 11.7 - 15.5 g/dL [facility] Hematocrit 43.6 35.7 - 45.8 % [facility] MCV 96.5(H) 82.6 - 94.4 [facility] MCH 31.0 27.1 - 32.0 pg [facility] MCHC 32.1 31.7 - 35.0 g/dL [facility] Platelets 258 145 - 357 x10(3)/[facility] RDWSD 46.7(H) 37.0 - 46.0 [facility] RDWCV 13.2 11.5 - 14.1 % [facility] MPV 11.1 7.6 - 12.9 [facility] nRBC % Auto 0.0 % [facility] nRBC Abs Auto 0.000 0.000 - 0.000 x10(3)/[facility] Blood 06/26/2023 4:06 AM EDT 06/26/2023 4:18 AM EDT Narrative Resulting Agency Comment Spec In Lab Terrence Keating MD HEMATOLOGY ORDERABLE S Performing Organization Address City/State/[facility] Co de Phone Number [facility] [address] * (ABNORMAL) Basic Metabolic Panel (non-fasting) (06/26/2023 4:06 AM EDT) Glucose Lvl 100 65 - 199 mg/dL [facility] Comment:Diabetes: >=200 mg/d L plus symptoms BUN 25(H) 8 - 18 mg/dL [facility] Creatinine 1.24(H) 0.70 - 1.20 mg/dL [facility] Sodium 135 135 - 145 mmol/L [facility] Potassium 4.2 3.5 - 5.0 mmol/L [facility] Comment: Please note: ??Patients with WBC >100,000 may have falsely elevated Potassium levels. ??For accurate Potassium quantification in these patients send serum separator tube (gold top) for subsequent determinations. ??Contact the Clinical Chemistry Laboratory if there are any questions. Chloride 104 98 - 107 mmol/L [facility] CO2 19(L) 22 - 31 mmol/L [facility] Anion Gap 12 5 - 15 mmol/L [facility] Calcium 9.6 8.5 - 10.5 mg/dL [facility] Estimated GFR 52(L) >=60 mL/min/1. 73 m?? [facility] Comment: This patient's estimated GFR [...] MD CHEMISTRY ORDERABL ES Performing Organization Address [facility] Co de Phone Number [facility] [address] * Phosphorus (06/26/2023 4:06 AM EDT) Phosphorus 4.3 2.5 - 4.5 mg/dL [facility] Blood 06/26/2023 4:06 AM EDT 06/26/2023 4:18 AM EDT Narrative Resulting Agency Comment Spec In Lab Eufemia Copeland MD CHEMISTRY ORDERABL ES Performing Organization Address [facility]/ZIP Co de Phone Number [facility] [address] * Magnesium (06/26/2023 4:06 AM EDT) Magnesium 0.96 0.69 - 1.07 mmol/L [facility] Blood 06/26/2023 4:06 AM EDT 06/26/2023 4:18 AM EDT Narrative Resulting Agency Comment Spec In Lab Eufemia Copeland MD CHEMISTRY ORDERABL ES [facility] [place] [address] * Differential, Automated (06/25/2023 1:50 AM EDT) [facility] Neutrophils % 56.2 % [facility] Neutr Abs (ANC) 4.06 1.70 - 6.10 x10(3)/[facility] Lymphocytes % 30.5 % [facility] Lymphocytes Abs 2.2 0.9 - 3.2 x10(3)/[facility] Monocytes % 8.7 % [facility] Monocyte Abs 0.6 0.3 - 0.9 x10(3)/[facility] Eosinophils % 3.9 % [facility] Eosinophils Abs 0.3 0.0 - 0.4 x10(3)/[facility] Basophils % 0.6 % [facility] Basophils Abs 0.0 0.0 - 0.1 x10(3)/[facility] Immature Gran % 0.10 % [facility] Comment: Immature granulocytes(IG's)percentage and absolute count will include metamyelocytes, myelocytes, and promyelocytes. Blood smears from CBCs yielding IG's will be scanned manually for concordance. If this scan disagrees with the automated IG or if promyelocytes are noted, a manual differential will be performed. Shonda Gran Abs 0.01 0.00 - 0.04 x10(3)/[facility] Blood 06/25/2023 1:50 AM EDT 06/25/2023 2:16 AM EDT Narrative Resulting Agency Comment Spec In Lab Terrence Keating MD HEMATOLOGY ORDERABLE S [facility] [place] [address] * Hemogram (06/25/2023 1:50 AM EDT) WBC 7.2 4.0 - 9.5 x10(3)/[facility] RBC 4.57 4.00 - 5.21 x10(6)/[facility] Hemoglobin 14.4 11.7 - 15.5 g/dL [facility] Hematocrit 42.9 35.7 - 45.8 % [facility] MCV 93.9 82.6 - 94.4 [facility] MCH 31.5 27.1 - 32.0 pg [facility] MCHC 33.6 31.7 - 35.0 g/dL [facility] Platelets 241 145 - 357 x10(3)/[facility] RDWSD 44.7 37.0 - 46.0 [facility] RDWCV 13.2 11.5 - 14.1 % [facility] MPV 11.5 7.6 - 12.9 [facility] nRBC % Auto 0.0 % [facility] nRBC Abs Auto 0.000 0.000 - 0.000 x10(3)/[facility] Blood 06/25/2023 1:50 AM EDT 06/25/2023 2:16 AM EDT Narrative Resulting Agency Comment Spec In Lab Terrence Keating MD HEMATOLOGY ORDERABLE S [facility] [place] [address] * (ABNORMAL) Basic Metabolic Panel (non-fasting) (06/25/2023 1:50 AM EDT) Glucose Lvl 99 65 - 199 mg/dL [facility] Comment:Diabetes: >=200 mg/d L plus symptoms BUN 20(H) 8 - 18 mg/dL [facility] Creatinine 1.59(H) 0.70 - 1.20 mg/dL [facility] Sodium 139 135 - 145 mmol/L [facility] Potassium 3.4(L) 3.5 - 5.0 mmol/L [facility] Comment: Please note: ??Patients with WBC >100,000 may have falsely elevated Potassium levels. ??For accurate Potassium quantification in these patients send serum separator tube (gold top) for subsequent determinations. ??Contact the Clinical Chemistry Laboratory if there are any questions. Chloride 102 98 - 107 mmol/L [facility] CO2 25 22 - 31 mmol/L [facility] Anion Gap 12 5 - 15 mmol/L [facility] Calcium 9.4 8.5 - 10.5 mg/dL [facility] Estimated GFR 38(L) >=60 mL/min/1. 73 m?? [facility] Comment: This patient's estimated GFR [...] Lab Eufemia Copeland MD CHEMISTRY ORDERABL ES [facility] [place] [address] * Phosphorus (06/25/2023 1:50 AM EDT) Phosphorus 4.4 2.5 - 4.5 mg/dL [facility] Blood 06/25/2023 1:50 AM EDT 06/25/2023 2:16 AM EDT Narrative Resulting Agency Comment Spec In Lab Eufemia Copeland MD CHEMISTRY ORDERABL ES [facility] [place] [address] * Magnesium (06/25/2023 1:50 AM EDT) [facility] Magnesium 0.99 0.69 - 1.07 mmol/L [facility] Blood 06/25/2023 1:50 AM EDT 06/25/2023 2:16 AM EDT Narrative Resulting Agency Comment Spec In Lab Eufemia Copeland MD CHEMISTRY ORDERABL ES Performing Organization Address [facility]/ZIP Co de Phone Number [facility] [place] [address] * (ABNORMAL) pro-Brain Natriuretic Peptide (06/24/2023 3:38 AM EDT) Pathologist [facility] ProBNP 1,239(H) <=124 pg/mL [facility] Blood Venous Draw / Unknown 06/24/2023 3:38 AM EDT 06/24/2023 3:49 AM EDT Narrative Resulting Agency Comment Spec In Lab Ailyn Irvin MD CHEMISTRY ORDERABLES Performing Organization Address [facility]/ZIP Co de Phone Number [facility] [address] * Differential, Automated (06/24/2023 3:38 AM EDT) Pathologist [facility] Neutrophils % 51.6 % [facility] Neutr Abs (ANC) 3.54 1.70 - 6.10 x10(3)/[facility] Lymphocytes % 36.0 % [facility] Lymphocytes Abs 2.5 0.9 - 3.2 x10(3)/[facility] Monocytes % 7.8 % [facility] Monocyte Abs 0.5 0.3 - 0.9 x10(3)/[facility] Eosinophils % 3.6 % [facility] Eosinophils Abs 0.2 0.0 - 0.4 x10(3)/[facility] Basophils % 0.7 % [facility] Basophils Abs 0.0 0.0 - 0.1 x10(3)/[facility] Immature Gran % 0.30 % [facility] Comment: Immature granulocytes(IG's)percentage and absolute count will include metamyelocytes, myelocytes, and promyelocytes. Blood smears from CBCs yielding IG's will be scanned manually for concordance. If this scan disagrees with the automated IG or if promyelocytes are noted, a manual differential will be performed. Shonda Gran Abs 0.02 0.00 - 0.04 x10(3)/[facility] Blood 06/24/2023 3:38 AM EDT 06/24/2023 3:49 AM EDT Narrative Resulting Agency Comment Spec In Lab Terrence Keating MD HEMATOLOGY ORDERABLE S [facility] [place] [address] * Hemogram (06/24/2023 3:38 AM EDT) WBC 6.9 4.0 - 9.5 x10(3)/[facility] RBC 4.36 4.00 - 5.21 x10(6)/[facility] Hemoglobin 13.6 11.7 - 15.5 g/dL [facility] Hematocrit 40.7 35.7 - 45.8 % [facility] MCV 93.3 82.6 - 94.4 fL [facility] MCH 31.2 27.1 - 32.0 pg [facility] MCHC 33.4 31.7 - 35.0 g/dL [facility] Platelets 220 145 - 357 x10(3)/[facility] RDWSD 44.5 37.0 - 46.0 fL [facility] RDWCV 13.0 11.5 - 14.1 % [facility] MPV 10.8 7.6 - 12.9 fL [facility] nRBC % Auto 0.0 % [facility] nRBC Abs Auto 0.000 0.000 - 0.000 x10(3)/[facility] Blood 06/24/2023 3:38 AM EDT 06/24/2023 3:49 AM EDT Narrative Resulting Agency Comment Spec In Lab Terrence Keating MD HEMATOLOGY ORDERABLE S Performing Organization Address City/State/[facility] Co de Phone Number [facility] [place] [address] * Heparin (unfractionated) Level (06/24/2023 3:38 AM EDT) Heparin UFH Level 0.44 IU/mL [facility] Comment: Heparin (anti-Xa) levels should [...] Lab Terrence Keating MD HEMATOLOGY ORDERABLE S [facility] [place] [address] * (ABNORMAL) Basic Metabolic Panel (non-fasting) (06/24/2023 3:38 AM EDT) Glucose Lvl 96 65 - 199 mg/dL [facility] Comment:Diabetes: >=200 mg/d L plus symptoms BUN 20(H) 8 - 18 mg/dL [facility] Creatinine 1.14 0.70 - 1.20 mg/dL [facility] Sodium 138 135 - 145 mmol/L [facility] Potassium 4.2 3.5 - 5.0 mmol/L [facility] Comment: Please note: ??Patients with WBC >100,000 may have falsely elevated Potassium levels. ??For accurate Potassium quantification in these patients send serum separator tube (gold top) for subsequent determinations. ??Contact the Clinical Chemistry Laboratory if there are any questions. Chloride 104 98 - 107 mmol/L [facility] CO2 21(L) 22 - 31 mmol/L [facility] Anion Gap 13 5 - 15 mmol/L [facility] Calcium 9.1 8.5 - 10.5 mg/dL [facility] Estimated GFR 57(L) >=60 mL/min/1. 73 m?? [facility] Comment: This patient's estimated GFR [...] MD CHEMISTRY ORDERABL ES Performing Organization Address [facility]/ZIP Co de Phone Number [facility] [place] [address] * Phosphorus (06/24/2023 3:38 AM EDT) Phosphorus 4.1 2.5 - 4.5 mg/dL [facility] Blood 06/24/2023 3:38 AM EDT 06/24/2023 3:49 AM EDT Narrative Resulting Agency Comment Spec In Lab Eufemia Copeland MD CHEMISTRY ORDERABL ES Performing Organization Address [facility] Co de Phone Number [facility] [place] [address] * Magnesium (06/24/2023 3:38 AM EDT) Magnesium 0.96 0.69 - 1.07 mmol/L [facility] Blood 06/24/2023 3:38 AM EDT 06/24/2023 3:49 AM EDT Narrative Resulting Agency Comment Spec In Lab Eufemia Copeland MD CHEMISTRY ORDERABL ES Performing Organization Address [facility] Co de Phone Number [facility] [place] [address] * Heparin (unfractionated) Level (06/23/2023 9:24 PM EDT) Heparin UFH Level 0.51 IU/mL [facility] Comment: Heparin (anti-Xa) levels should [...] MD HEMATOLOGY ORDERABLE S Performing Organization Address City/State/[facility] Co de Phone Number [facility] [place] [address] * Duplex Study Visceral Arteries, Comp (06/23/2023 3:36 PM EDT) VB Text Report Department: Vascular Surgery Lab Patient: [id number] (LOIDA ROQUE) CPT: 72298 Referring Physician: AILYN IRVIN ?? Phone: Indications: [...] PM EDT) Heparin UFH Level 0.90 IU/mL [facility] Comment: Heparin (anti-Xa) levels should [...] MD HEMATOLOGY ORDERABLE S Performing Organization Address City/[facility]/ZIP Co de Phone Number [facility] [place] [address] * EKG 12 Lead (06/23/2023 9:54 AM EDT) Ventricular rate 48 BPM MUSE SYSTEM Atrial Rate 48 BPM MUSE SYSTEM P-R Interval 192 ms MUSE SYSTEM QRS Duration 92 ms MUSE SYSTEM Q-T Interval 462 ms MUSE SYSTEM QTC Calculated (Bezet) 412 ms MUSE SYSTEM Calculated P Marion 21 degrees MUSE SYSTEM Calculated R Marion 20 degrees MUSE SYSTEM Calculated T Marion 16 degrees MUSE SYSTEM INTERPRETATION Sinus bradycardia Nonspecific ST and T wave abnormality Abnormal ECG When compared with ECG of 22-JUN-2023 11:13, Criteria for Septal infarct are no longer Present No significant change was found Confirmed by MD [place], Gus ([id number]) on 06/23/2023 12:59:50 PM MUSE SYSTEM 06/23/2023 9:54 AM EDT 06/23/2023 12:59 PM EDT Ailyn Irvin MD ECG ORDERABLES Performing Organization Address [facility] Co de Phone Number MUSE SYSTEM * Differential, Automated (06/23/2023 4:12 AM EDT) Neutrophils % 52.8 % [facility] Neutr Abs (ANC) 4.30 1.70 - 6.10 x10(3)/[facility] Lymphocytes % 33.9 % [facility] Lymphocytes Abs 2.8 0.9 - 3.2 x10(3)/[facility] Monocytes % 8.3 % [facility] Monocyte Abs 0.7 0.3 - 0.9 x10(3)/[facility] Eosinophils % 3.9 % [facility] Eosinophils Abs 0.3 0.0 - 0.4 x10(3)/[facility] Basophils % 0.7 % [facility] Basophils Abs 0.1 0.0 - 0.1 x10(3)/[facility] Immature Gran % 0.40 % [facility] Comment: Immature granulocytes(IG's)percentage and absolute count will include metamyelocytes, myelocytes, and promyelocytes. Blood smears from CBCs yielding IG's will be scanned manually for concordance. If this scan disagrees with the automated IG or if promyelocytes are noted, a manual differential will be performed. Shonda Gran Abs 0.03 0.00 - 0.04 x10(3)/[facility] Blood 06/23/2023 4:12 AM EDT 06/23/2023 4:38 AM EDT Narrative Resulting Agency Comment Spec In Lab Terrence Keating MD HEMATOLOGY ORDERABLE S Performing Organization Address City/State/[facility] Co de Phone Number [facility] [place] [address] * Hemogram (06/23/2023 4:12 AM EDT) WBC 8.2 4.0 - 9.5 x10(3)/[facility] RBC 4.59 4.00 - 5.21 x10(6)/[facility] Hemoglobin 14.3 11.7 - 15.5 g/dL [facility] Hematocrit 43.1 35.7 - 45.8 % [facility] MCV 93.9 82.6 - 94.4 fL [facility] MCH 31.2 27.1 - 32.0 pg [facility] MCHC 33.2 31.7 - 35.0 g/dL [facility] Platelets 233 145 - 357 x10(3)/[facility] RDWSD 44.2 37.0 - 46.0 fL [facility] RDWCV 13.0 11.5 - 14.1 % [facility] MPV 11.3 7.6 - 12.9 fL [facility] nRBC % Auto 0.0 % [facility] nRBC Abs Auto 0.000 0.000 - 0.000 x10(3)/mcL [facility] Blood 06/23/2023 4:12 AM EDT 06/23/2023 4:38 AM EDT Narrative Resulting Agency Comment Spec In Lab Terrence Keating MD HEMATOLOGY ORDERABLE S Performing Organization Address [facility]/ZIP Co de Phone Number [facility] [place] [address] * (ABNORMAL) Heparin (unfractionated) Level (06/23/2023 4:12 AM EDT) Heparin UFH Level 1.95(Crit ical) IU/mL [facility] Comment: Critical Result called by ?? JONATHAN CRITICAL Results read back by: ? Rosa [...] MD HEMATOLOGY ORDERABLE S Performing Organization Address City/[facility]/ZIP Co de Phone Number [facility] [place] [address] * (ABNORMAL) Basic Metabolic Panel (non-fasting) (06/23/2023 4:12 AM EDT) Glucose Lvl 87 65 - 199 mg/dL [facility] Comment:Diabetes: >=200 mg/d L plus symptoms BUN 23(H) 8 - 18 mg/dL [facility] Creatinine 1.08 0.70 - 1.20 mg/dL [facility] Sodium 137 135 - 145 mmol/L [facility] Potassium 3.8 3.5 - 5.0 mmol/L [facility] Comment: Please note: ??Patients with WBC >100,000 may have falsely elevated Potassium levels. ??For accurate Potassium quantification in these patients send serum separator tube (gold top) for subsequent determinations. ??Contact the Clinical Chemistry Laboratory if there are any questions. Chloride 103 98 - 107 mmol/L [facility] CO2 22 22 - 31 mmol/L [facility] Anion Gap 12 5 - 15 mmol/L [facility] Calcium 9.3 8.5 - 10.5 mg/dL [facility] Estimated GFR 61 >=60 mL/min/1. 73 m?? [facility] Comment: This patient's estimated GFR [...] Lab Eufemia Copeland MD CHEMISTRY ORDERABL ES [facility] [place] [address] * Phosphorus (06/23/2023 4:12 AM EDT) Phosphorus 4.5 2.5 - 4.5 mg/dL [facility] Blood 06/23/2023 4:12 AM EDT 06/23/2023 4:38 AM EDT Narrative Resulting Agency Comment Spec In Lab Eufemia Copeland MD CHEMISTRY ORDERABL ES Performing Organization Address [facility] Co de Phone Number [facility] [place] [address] * Magnesium (06/23/2023 4:12 AM EDT) Magnesium 1.03 0.69 - 1.07 mmol/L [facility] Blood 06/23/2023 4:12 AM EDT 06/23/2023 4:38 AM EDT Narrative Resulting Agency Comment Spec In Lab Eufemia Copeland MD CHEMISTRY ORDERABL ES Performing Organization Address [facility] Co de Phone Number [facility] [place] [address] * ECHO LMTD W CONTRAST W LMTD SPEC DOPP COLOR DOPP (06/22/2023 4:25 PM EDT) Anatomical Region Laterality Modality Cardiac Other 06/22/2023 2:49 PM EDT Narrative 06/22/2023 4:42 PM EDT 1 [place] [address] ? Echocardiogram Report Name: LOIDA ROQUE ?Study Date: 06/22/2023 02:49 PM [facility] ??HR: 57 : 1970 ?Height: 162 cm ? Account: [id number] Age: 53 yrs ?Weight: 102 kg Gender: [...] slight decrease in LV systolic function. Procedure Complete-79197. Satisfactory quality. There is normal sinus rhythm. [...] Note Jose Gallegos MD - 06/22/2023 1 [place] [address] Echocardiogram Report Name: LOIDA ROQUE Study Date: 06/22/2023 02:49 PM Patient Location: [place] [address] A HR:57 : 1970 Height: 162 cmAccount: [id number] Age: 53 yrs Weight: 102 kg Gender: [...] a slightdecrease in LV systolic function. Procedure Complete-40221. Satisfactory quality. There is normal sinus rhythm. [...] PM EDT) Troponin-T HS 22(H) <=14 ng/L [facility] Comment: This patient's troponin T [...] troponin value can be found in the [facility] Laboratory Test Catalog Troponin - [facility] Laboratory Test Catalog Reference: Fourth [place] Definition of Myocardial Infarction. Journal of the [place] [employer] 2018;72:8216-6895 Blood 06/22/2023 2:38 PM EDT 06/22/2023 2:50 PM EDT Narrative Resulting Agency Comment Spec In Lab Ailyn Irvin MD CHEMISTRY ORDERABLES [facility] [place] [address] * Duplex for DVT, Arm, Unilat (06/22/2023 2:24 PM EDT) VB Text Report Department: Vascular Surgery Lab Patient: [id number] (LOIDA ROQUE) CPT: [id number] Referring Physician: AILYN IRVIN ?? Phone: Indications: [...] Ailyn Irvin MD VASCULAR ORDERABLES VASCUBASE * XR Chest One View (06/22/2023 [...] who have questions please contact the health health care aide that requested 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 ? Electronically signed by: Itz Hayward MD, [facility] ??([phone]), at 06/22/2023 11:47 AM Narrative 06/22/2023 11:47 AM EDT EXAMINATION: XR CHEST ONE VIEW CLINICAL HISTORY: Severe chest pain with shortness of breath TECHNIQUE: 1 view of the chest COMPARISON: 09/28/2022 FINDINGS: The cardiomediastinal silhouette is stable Decreased lung volumes. The lungs are clear. No pleural effusion or pneumothorax Procedure Note Itz aHyward MD - 06/22/2023 EXAMINATION: XR CHEST ONE [...] patients who have questions please contactthe health health care aide that requested 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 Electronically signed by: Itz Hayward MD, [facility]([phone]), at 06/22/2023 11:47 AM Ailyn Irvin MD IMG DX ORDERABLES * (ABNORMAL) Troponin (06/22/2023 11:24 AM EDT) Troponin-T HS 22(H) <=14 ng/L [facility] Comment: This patient's troponin T [...] troponin value can be found in the [facility] Laboratory Test Catalog Troponin - [facility] Laboratory Test Catalog Reference: Fourth [place] Definition of Myocardial Infarction. Journal of the [place] [employer] 2018;72:9369-8125 Blood 06/22/2023 11:2 4 AM EDT 06/22/2023 11:44 AM EDT Narrative Resulting Agency Comment Spec In Lab Ailyn Irvin MD CHEMISTRY ORDERABLES Performing Organization Address City/[facility]/ZIP Co de Phone Number [facility] [place] [address] * EKG 12 Lead (06/22/2023 11:13 AM EDT) Ventricular rate 63 BPM MUSE SYSTEM Atrial Rate 63 BPM MUSE SYSTEM P-R Interval 162 ms MUSE SYSTEM QRS Duration 86 ms MUSE SYSTEM Q-T Interval 382 ms MUSE SYSTEM QTC Calculated (Bezet) 390 ms MUSE SYSTEM Calculated P Marion 24 degrees MUSE SYSTEM Calculated R Marion 32 degrees MUSE SYSTEM Calculated T Marion -2 degrees MUSE SYSTEM INTERPRETATION Normal sinus rhythm Septal infarct (cited on or before 22-JUN-2023) Possible Lateral infarct , age undetermined ST & T wave abnormality, consider inferolateral ischemia Abnormal ECG When compared with ECG of 22-JUN-2023 10:55, No significant change was found Confirmed by MD Angelo Danette ([id number]) on 06/22/2023 3:56:31 PM MUSE SYSTEM 06/22/2023 11:1 3 AM EDT 06/22/2023 3:56 PM EDT Ailyn Irvin MD ECG ORDERABLES Performing Organization Address [facility]/ZIP Co de Phone Number MUSE SYSTEM * EKG 12 Lead (06/22/2023 10:55 AM EDT) Ventricular rate 56 BPM MUSE SYSTEM Atrial Rate 56 BPM MUSE SYSTEM P-R Interval 168 ms MUSE SYSTEM QRS Duration 88 ms MUSE SYSTEM Q-T Interval 426 ms MUSE SYSTEM QTC Calculated (Bezet) 411 ms MUSE SYSTEM Calculated P Marion 22 degrees MUSE SYSTEM Calculated R Marion 20 degrees MUSE SYSTEM Calculated T Marion 10 degrees MUSE SYSTEM INTERPRETATION Sinus bradycardia Septal infarct , age undetermined ST & T wave abnormality, consider inferolateral ischemia Abnormal ECG When compared with ECG of 21-JUN-2023 10:06, Septal infarct is now Present Confirmed by MD Angelo Danette ([id number]) on 06/22/2023 3:55:53 PM MUSE SYSTEM 06/22/2023 10:5 5 AM EDT 06/22/2023 3:55 PM EDT Ailyn Irvin MD ECG ORDERABLES MUSE SYSTEM * Differential, Automated (06/22/2023 4:34 AM EDT) Neutrophils % 54.4 % [facility] Neutr Abs (ANC) 4.07 1.70 - 6.10 x10(3)/[facility] Lymphocytes % 30.6 % [facility] Lymphocytes Abs 2.3 0.9 - 3.2 x10(3)/[facility] Monocytes % 9.9 % [facility] Monocyte Abs 0.7 0.3 - 0.9 x10(3)/[facility] Eosinophils % 4.3 % [facility] Eosinophils Abs 0.3 0.0 - 0.4 x10(3)/[facility] Basophils % 0.7 % [facility] Basophils Abs 0.0 0.0 - 0.1 x10(3)/[facility] Immature Gran % 0.10 % [facility] Comment: Immature granulocytes(IG's)percentage and absolute count will include metamyelocytes, myelocytes, and promyelocytes. Blood smears from CBCs yielding IG's will be scanned manually for concordance. If this scan disagrees with the automated IG or if promyelocytes are noted, a manual differential will be performed. Shonda Gran Abs 0.01 0.00 - 0.04 x10(3)/[facility] Blood 06/22/2023 4:34 AM EDT 06/22/2023 4:42 AM EDT Narrative Resulting Agency Comment Spec In Lab Terrence Keating MD HEMATOLOGY ORDERABLE S [facility] [place] [address] * (ABNORMAL) Hemogram (06/22/2023 4:34 AM EDT) WBC 7.5 4.0 - 9.5 x10(3)/[facility] RBC 4.04 4.00 - 5.21 x10(6)/[facility] Hemoglobin 12.8 11.7 - 15.5 g/dL [facility] Hematocrit 39.1 35.7 - 45.8 % [facility] MCV 96.8(H) 82.6 - 94.4 [facility] MCH 31.7 27.1 - 32.0 pg [facility] MCHC 32.7 31.7 - 35.0 g/dL [facility] Platelets 225 145 - 357 x10(3)/[facility] RDWSD 45.9 37.0 - 46.0 [facility] RDWCV 13.0 11.5 - 14.1 % [facility] MPV 10.6 7.6 - 12.9 [facility] nRBC % Auto 0.0 % [facility] nRBC Abs Auto 0.000 0.000 - 0.000 x10(3)/[facility] Blood 06/22/2023 4:34 AM EDT 06/22/2023 4:42 AM EDT Narrative Resulting Agency Comment Spec In Lab Terrence Keating MD HEMATOLOGY ORDERABLE S [facility] [place] [address] * (ABNORMAL) Basic Metabolic Panel (non-fasting) (06/22/2023 4:34 AM EDT) Glucose Lvl 94 65 - 199 mg/dL [facility] Comment:Diabetes: >=200 mg/d L plus symptoms BUN 22(H) 8 - 18 mg/dL [facility] Creatinine 1.19 0.70 - 1.20 mg/dL [facility] Sodium 138 135 - 145 mmol/L [facility] Potassium 3.9 3.5 - 5.0 mmol/L [facility] Comment: Please note: ??Patients with WBC >100,000 may have falsely elevated Potassium levels. ??For accurate Potassium quantification in these patients send serum separator tube (gold top) for subsequent determinations. ??Contact the Clinical Chemistry Laboratory if there are any questions. Chloride 102 98 - 107 mmol/L [facility] CO2 19(L) 22 - 31 mmol/L [facility] Anion Gap 17(H) 5 - 15 mmol/L [facility] Calcium 9.4 8.5 - 10.5 mg/dL [facility] Estimated GFR 54(L) >=60 mL/min/1. 73 m?? [facility] Comment: This patient's estimated GFR [...] MD CHEMISTRY ORDERABL ES Performing Organization Address [facility] Co de Phone Number [facility] [place] [address] * (ABNORMAL) Phosphorus (06/22/2023 4:34 AM EDT) Phosphorus 4.9(H) 2.5 - 4.5 mg/dL [facility] Blood 06/22/2023 4:34 AM EDT 06/22/2023 4:42 AM EDT Narrative Resulting Agency Comment Spec In Lab Eufemia Copeland MD CHEMISTRY ORDERABL ES Performing Organization Address [facility] de Phone Number [facility] [place] [address] * Magnesium (06/22/2023 4:34 AM EDT) Magnesium 1.02 0.69 - 1.07 mmol/L [facility] Blood 06/22/2023 4:34 AM EDT 06/22/2023 4:42 AM EDT Narrative Resulting Agency Comment Spec In Lab Eufemia Copeland MD CHEMISTRY ORDERABL ES Performing Organization Address [facility] Co de Phone Number [facility] [place] [address] * CT Abdomen & Pelvis w Contrast [...] who have questions please contact the health health care aide that requested 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 ? Electronically signed by: RONDA DUFFY MD, [facility] ([phone]), at 06/22/2023 7:59 AM Narrative 06/22/2023 7:59 [...] patients who have questions please contactthe health health care aide that requested 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 Electronically signed by: RONDA DUFFY MD, [facility]([phone]), at 06/22/2023 7:59 AM Eufemia Copeland MD IMG CT ORDERABLES * EKG 12 Lead (06/21/2023 10:06 AM EDT) Ventricular rate 51 BPM MUSE SYSTEM Atrial Rate 51 BPM MUSE SYSTEM P-R Interval 176 ms MUSE SYSTEM QRS Duration 92 ms MUSE SYSTEM Q-T Interval 450 ms MUSE SYSTEM QTC Calculated (Bezet) 414 ms MUSE SYSTEM Calculated P Marion 17 degrees MUSE SYSTEM Calculated R Marion 35 degrees MUSE SYSTEM Calculated T Marion 13 degrees MUSE SYSTEM INTERPRETATION Sinus bradycardia Nonspecific ST and T wave abnormality Abnormal ECG When compared with ECG of 19-JUN-2023 04:24, T wave inversion now evident in Inferior leads T wave inversion now evident in Anterior leads QT has shortened Confirmed by MD Salvador Jon ([id number]) on 06/21/2023 3:52:44 PM MUSE SYSTEM 06/21/2023 10:0 6 AM EDT 06/21/2023 3:52 PM EDT Eufemia Copeland MD ECG ORDERABLES MUSE SYSTEM * (ABNORMAL) Troponin (06/21/2023 9:45 AM EDT) Troponin-T HS 22(H) <=14 ng/L [facility] Comment: This patient's troponin T [...] troponin value can be found in the [facility] Laboratory Test Catalog Troponin - [facility] Laboratory Test Catalog Reference: Fourth [place] Definition of Myocardial Infarction. Journal of the [place] [employer] 2018;72:[id number] Blood 06/21/2023 9:45 AM EDT 06/21/2023 10:08 AM EDT Narrative Resulting Agency Comment Spec In Lab Eufemia Copeland MD CHEMISTRY ORDERABL ES Performing Organization Address [facility] Co de Phone Number [facility] [place] [address] * (ABNORMAL) pro-Brain Natriuretic Peptide (06/21/2023 5:58 AM EDT) ProBNP 1,370(H) <=124 pg/mL [facility] Blood Venous Draw / Unknown 06/21/2023 5:58 AM EDT 06/21/2023 7:28 AM EDT Narrative Resulting Agency Comment Spec In Lab Eufemia Copeland MD CHEMISTRY ORDERABL ES Performing Organization Address [facility] Co de Phone Number [facility] [place] [address] * Potassium (06/21/2023 5:58 AM EDT) Potassium 4.0 3.5 - 5.0 mmol/L [facility] Comment: Please note: ??Patients with [...] MD CHEMISTRY ORDERABL ES Performing Organization Address [facility]/ZIP Co de Phone Number [facility] [place] [address] * Differential, Automated (06/21/2023 3:25 AM EDT) Neutrophils % 54.0 % [facility] Neutr Abs (ANC) 5.02 1.70 - 6.10 x10(3)/mcL [facility] Lymphocytes % 31.8 % [facility] Lymphocytes Abs 3.0 0.9 - 3.2 x10(3)/[facility] Monocytes % 8.9 % [facility] Monocyte Abs 0.8 0.3 - 0.9 x10(3)/[facility] Eosinophils % 4.2 % [facility] Eosinophils Abs 0.4 0.0 - 0.4 x10(3)/[facility] Basophils % 0.8 % [facility] Basophils Abs 0.1 0.0 - 0.1 x10(3)/[facility] Immature Gran % 0.30 % [facility] Comment: Immature granulocytes(IG's)percentage and absolute count will include metamyelocytes, myelocytes, and promyelocytes. Blood smears from CBCs yielding IG's will be scanned manually for concordance. If this scan disagrees with the automated IG or if promyelocytes are noted, a manual differential will be performed. Shonda Gran Abs 0.03 0.00 - 0.04 x10(3)/[facility] Blood 06/21/2023 3:25 AM EDT 06/21/2023 3:45 AM EDT Narrative Resulting Agency Comment Spec In Lab Terrence Keating MD HEMATOLOGY ORDERABLE S [facility] [place] [address] * Hemogram (06/21/2023 3:25 AM EDT) WBC 9.3 4.0 - 9.5 x10(3)/[facility] RBC 4.74 4.00 - 5.21 x10(6)/[facility] Hemoglobin 14.9 11.7 - 15.5 g/dL [facility] Hematocrit 44.2 35.7 - 45.8 % [facility] MCV 93.2 82.6 - 94.4 fL [facility] MCH 31.4 27.1 - 32.0 pg [facility] MCHC 33.7 31.7 - 35.0 g/dL [facility] Platelets 279 145 - 357 x10(3)/[facility] RDWSD 44.7 37.0 - 46.0 fL [facility] RDWCV 13.1 11.5 - 14.1 % [facility] MPV 11.1 7.6 - 12.9 fL [facility] nRBC % Auto 0.0 % [facility] nRBC Abs Auto 0.000 0.000 - 0.000 x10(3)/[facility] Blood 06/21/2023 3:25 AM EDT 06/21/2023 3:45 AM EDT Narrative Resulting Agency Comment Spec In Lab Terrence Keating MD HEMATOLOGY ORDERABLE S [facility] [place] [address] * (ABNORMAL) Basic Metabolic Panel (non-fasting) (06/21/2023 3:25 AM EDT) Glucose Lvl 95 65 - 199 mg/dL [facility] Comment:Diabetes: >=200 mg/d L plus symptoms BUN 27(H) 8 - 18 mg/dL [facility] Creatinine 1.11 0.70 - 1.20 mg/dL [facility] Sodium 138 135 - 145 mmol/L [facility] Potassium Not Perf 3.5 - 5.0 [facility] Comment: Unable to quantitate due [...] questions. Chloride 100 98 - 107 mmol/L [facility] CO2 26 22 - 31 mmol/L [facility] Anion Gap 12 5 - 15 mmol/L [facility] Calcium 9.7 8.5 - 10.5 mg/dL [facility] Estimated GFR 59(L) >=60 mL/min/1. 73 m?? [facility] Comment: This patient's estimated GFR [...] MD CHEMISTRY ORDERABL ES Performing Organization Address [facility]/ZIP Co de Phone Number [facility] [place] [address] * (ABNORMAL) Phosphorus (06/21/2023 3:25 AM EDT) Phosphorus 5.1(H) 2.5 - 4.5 mg/dL [facility] Blood 06/21/2023 3:25 AM EDT 06/21/2023 3:45 AM EDT Narrative Resulting Agency Comment Spec In Lab Eufemia Copeland MD CHEMISTRY ORDERABL ES [facility] [place] [address] * Magnesium (06/21/2023 3:25 AM EDT) Magnesium 1.04 0.69 - 1.07 mmol/L [facility] Blood 06/21/2023 3:25 AM EDT 06/21/2023 3:45 AM EDT Narrative Resulting Agency Comment Spec In Lab Eufemia Copeland MD CHEMISTRY ORDERABL ES [facility] [address] * (ABNORMAL) Differential, Automated (06/20/2023 3:32 AM EDT) Pathologist [facility] Neutrophils % 52.5 % [facility] Neutr Abs (ANC) 5.28 1.70 - 6.10 x10(3)/ L [facility] Lymphocytes % 32.4 % [facility] Lymphocytes Abs 3.3(H) 0.9 - 3.2 x10(3)/mc L [facility] Monocytes % 9.7 % [facility] Monocyte Abs 1.0(H) 0.3 - 0.9 x10(3)/ L [facility] Eosinophils % 4.3 % [facility] Eosinophils Abs 0.4 0.0 - 0.4 x10(3)/ L [facility] Basophils % 0.7 % [facility] Basophils Abs 0.1 0.0 - 0.1 x10(3)/mc L [facility] Immature Gran % 0.40 % [facility] Comment: Immature granulocytes(IG's)percentage and absolute count will include metamyelocytes, myelocytes, and promyelocytes. Blood smears from CBCs yielding IG's will be scanned manually for concordance. If this scan disagrees with the automated IG or if promyelocytes are noted, a manual differential will be performed. Shonda Gran Abs 0.04 0.00 - 0.04 x10(3)/mc L [facility] Blood 06/20/2023 3:32 AM EDT 06/20/2023 3:47 AM EDT Narrative Resulting Agency Comment Spec In Lab Terrence Keating MD HEMATOLOGY ORDERABLE S [facility] [place] [address] * (ABNORMAL) Hemogram (06/20/2023 3:32 AM EDT) WBC 10.1(H) 4.0 - 9.5 x10(3)/[facility] LAB[facility]ATORY RBC 4.57 4.00 - 5.21 x10(6)/[facility] Hemoglobin 14.2 11.7 - 15.5 g/dL [facility] Hematocrit 41.5 35.7 - 45.8 % [facility] MCV 90.8 82.6 - 94.4 [facility] MCH 31.1 27.1 - 32.0 pg [facility] MCHC 34.2 31.7 - 35.0 g/dL [facility] Platelets 253 145 - 357 x10(3)/[facility] RDWSD 43.7 37.0 - 46.0 [facility] RDWCV 13.2 11.5 - 14.1 % [facility] MPV 10.8 7.6 - 12.9 [facility] nRBC % Auto 0.0 % [facility] nRBC Abs Auto 0.000 0.000 - 0.000 x10(3)/[facility] Blood 06/20/2023 3:32 AM EDT 06/20/2023 3:47 AM EDT Narrative Resulting Agency Comment Spec In Lab Terrence Keating MD HEMATOLOGY ORDERABLE S [facility] [place] [address] * (ABNORMAL) Basic Metabolic Panel (non-fasting) (06/20/2023 3:32 AM EDT) Glucose Lvl 99 65 - 199 mg/dL [facility] Comment:Diabetes: >=200 mg/d L plus symptoms BUN 26(H) 8 - 18 mg/dL [facility] Creatinine 1.12 0.70 - 1.20 mg/dL [facility] Sodium 137 135 - 145 mmol/L [facility] Potassium 3.7 3.5 - 5.0 mmol/L [facility] Comment: Please note: ??Patients with WBC >100,000 may have falsely elevated Potassium levels. ??For accurate Potassium quantification in these patients send serum separator tube (gold top) for subsequent determinations. ??Contact the Clinical Chemistry Laboratory if there are any questions. Chloride 102 98 - 107 mmol/L [facility] CO2 22 22 - 31 mmol/L [facility] Anion Gap 13 5 - 15 mmol/L [facility] Calcium 9.4 8.5 - 10.5 mg/dL [facility] Estimated GFR 58(L) >=60 mL/min/1. 73 m?? [facility] Comment: This patient's estimated GFR [...] MD CHEMISTRY ORDERABL ES Performing Organization Address City/[facility]/ZIP Co de Phone Number [facility] [place] [address] * Phosphorus (06/20/2023 3:32 AM EDT) Phosphorus 4.3 2.5 - 4.5 mg/dL [facility] Blood 06/20/2023 3:32 AM EDT 06/20/2023 3:47 AM EDT Narrative Resulting Agency Comment Spec In Lab Eufemia Copeland MD CHEMISTRY ORDERABL ES Performing Organization Address [facility]/ZIP Co de Phone Number [facility] [place] [address] * Magnesium (06/20/2023 3:32 AM EDT) Magnesium 1.00 0.69 - 1.07 mmol/L [facility] Blood 06/20/2023 3:32 AM EDT 06/20/2023 3:47 AM EDT Narrative Resulting Agency Comment Spec In Lab Eufemia Copeland MD CHEMISTRY ORDERABL ES Performing Organization Address [facility]/ZIP Co de Phone Number [facility] [place] [address] * Phosphorus (06/19/2023 5:26 PM EDT) Phosphorus 4.0 2.5 - 4.5 mg/dL [facility] Blood 06/19/2023 5:26 PM EDT 06/19/2023 5:32 PM EDT Narrative Resulting Agency Comment Spec In Lab Eufemia Copeland MD CHEMISTRY ORDERABL ES Performing Organization Address City/[facility]/ZIP Co de Phone Number [facility] [place] [address] * Magnesium (06/19/2023 5:26 PM EDT) Magnesium 0.98 0.69 - 1.07 mmol/L [facility] Blood 06/19/2023 5:26 PM EDT 06/19/2023 5:32 PM EDT Narrative Resulting Agency Comment Spec In Lab Eufemia Copeland MD CHEMISTRY ORDERABL ES [facility] [place] [address] * (ABNORMAL) Basic Metabolic Panel (non-fasting) (06/19/2023 5:26 PM EDT) Glucose Lvl 105 65 - 199 mg/dL [facility] Comment:Diabetes: >=200 mg/d L plus symptoms BUN 21(H) 8 - 18 mg/dL [facility] Creatinine 1.06 0.70 - 1.20 mg/dL [facility] Sodium 139 135 - 145 mmol/L [facility] Potassium 3.9 3.5 - 5.0 mmol/L [facility] Comment: Please note: ??Patients with WBC >100,000 may have falsely elevated Potassium levels. ??For accurate Potassium quantification in these patients send serum separator tube (gold top) for subsequent determinations. ??Contact the Clinical Chemistry Laboratory if there are any questions. Chloride 103 98 - 107 mmol/L [facility] CO2 22 22 - 31 mmol/L [facility] Anion Gap 14 5 - 15 mmol/L [facility] Calcium 9.5 8.5 - 10.5 mg/dL [facility] Estimated GFR 62 >=60 mL/min/1. 73 m?? [facility] Comment: This patient's estimated GFR [...] MD CHEMISTRY ORDERABL ES Performing Organization Address City/[facility]/ZIP Co de Phone Number [facility] [address] * EKG 12 Lead (06/19/2023 4:24 AM EDT) Ventricular rate 66 BPM MUSE SYSTEM Atrial Rate 66 BPM MUSE SYSTEM P-R Interval 188 ms MUSE SYSTEM QRS Duration 92 ms MUSE SYSTEM Q-T Interval 484 ms MUSE SYSTEM QTC Calculated (Bezet) 507 ms MUSE SYSTEM Calculated P [place] 32 degrees MUSE SYSTEM Calculated R [place] 22 degrees MUSE SYSTEM Calculated T Marion 47 degrees MUSE SYSTEM INTERPRETATION Normal sinus rhythm Nonspecific ST abnormality Prolonged QT Abnormal ECG When compared with ECG of 15-JUN-2023 10:50, No significant change was found Confirmed by MD AKIRA, CINDY ([id number]) on 06/19/2023 2:42:42 PM MUSE SYSTEM 06/19/2023 4:24 AM EDT 06/19/2023 2:42 PM EDT Terrence Keating MD ECG ORDERABLES MUSE SYSTEM * (ABNORMAL) Basic Metabolic Panel (non-fasting) (06/19/2023 3:22 AM EDT) Glucose Lvl 101 65 - 199 mg/dL [facility] Comment:Diabetes: >=200 mg/d L plus symptoms BUN 24(H) 8 - 18 mg/dL [facility] Creatinine 1.04 0.70 - 1.20 mg/dL [facility] Sodium 137 135 - 145 mmol/L [facility] Potassium 3.6 3.5 - 5.0 mmol/L [facility] Comment: Please note: ??Patients with WBC >100,000 may have falsely elevated Potassium levels. ??For accurate Potassium quantification in these patients send serum separator tube (gold top) for subsequent determinations. ??Contact the Clinical Chemistry Laboratory if there are any questions. Chloride 100 98 - 107 mmol/L [facility] CO2 Not Perf 22 - 31 [facility] Comment:Add-on request. Samparish le too old to perform test. Anion Gap Unable to Calculate 5 - 15 mmol/L [facility] Calcium 9.4 8.5 - 10.5 mg/dL [facility] Estimated GFR 64 >=60 mL/min/1 .73 m?? [facility] Comment: This patient's estimated GFR [...] Lab Eufemia Copeland MD CHEMISTRY ORDERABL ES [facility] [place] [place] [address] * Differential, Automated (06/19/2023 3:22 AM EDT) Neutrophils % 54.0 % [facility] Neutr Abs (ANC) 5.08 1.70 - 6.10 x10(3)/[facility] LABOR[facility] Lymphocytes % 30.7 % [facility] Lymphocytes Abs 2.9 0.9 - 3.2 x10(3)/[facility] Monocytes % 10.0 % [facility] Monocyte Abs 0.9 0.3 - 0.9 x10(3)/[facility] Eosinophils % 4.5 % [facility] Eosinophils Abs 0.4 0.0 - 0.4 x10(3)/[facility] Basophils % 0.6 % [facility] Basophils Abs 0.1 0.0 - 0.1 x10(3)/[facility] Immature Gran % 0.20 % [facility] Comment: Immature granulocytes(IG's)percentage and absolute count will include metamyelocytes, myelocytes, and promyelocytes. Blood smears from CBCs yielding IG's will be scanned manually for concordance. If this scan disagrees with the automated IG or if promyelocytes are noted, a manual differential will be performed. Shonda Gran Abs 0.02 0.00 - 0.04 x10(3)/[facility] Blood 06/19/2023 3:22 AM EDT 06/19/2023 3:47 AM EDT Narrative Resulting Agency Comment Spec In Lab Terrence Keating MD HEMATOLOGY ORDERABLE S [facility] [place] [place] [address] * Hemogram (06/19/2023 3:22 AM EDT) WBC 9.4 4.0 - 9.5 x10(3)/[facility] RBC 4.48 4.00 - 5.21 x10(6)/[facility] Hemoglobin 13.9 11.7 - 15.5 g/dL [facility] Hematocrit 41.7 35.7 - 45.8 % [facility] MCV 93.1 82.6 - 94.4 fL [facility] MCH 31.0 27.1 - 32.0 pg [facility] MCHC 33.3 31.7 - 35.0 g/dL [facility] Platelets 244 145 - 357 x10(3)/[facility] RDWSD 44.2 37.0 - 46.0 [facility] RDWCV 12.9 11.5 - 14.1 % [facility] MPV 10.9 7.6 - 12.9 [facility] nRBC % Auto 0.0 % [facility] nRBC Abs Auto 0.000 0.000 - 0.000 x10(3)/[facility] Blood 06/19/2023 3:22 AM EDT 06/19/2023 3:47 AM EDT Narrative Resulting Agency Comment Spec In Lab Terrence Keating MD HEMATOLOGY ORDERABLE S Performing Organization Address City/[facility]/ZIP Co de Phone Number [facility] [address] * Phosphorus (06/19/2023 3:22 AM EDT) Phosphorus 4.1 2.5 - 4.5 mg/dL [facility] Blood 06/19/2023 3:22 AM EDT 06/19/2023 3:47 AM EDT Narrative Resulting Agency Comment Spec In Lab Eufemia Copeland MD CHEMISTRY ORDERABL ES Performing Organization Address City/[facility]/ZIP Co de Phone Number [facility] [place] [address] * Magnesium (06/19/2023 3:22 AM EDT) Magnesium 1.00 0.69 - 1.07 mmol/L [facility] Blood 06/19/2023 3:22 AM EDT 06/19/2023 3:47 AM EDT Narrative Resulting Agency Comment Spec In Lab Eufemia Coepland MD CHEMISTRY ORDERABL ES [facility] [place] [address] * (ABNORMAL) Basic Metabolic Panel (non-fasting) (06/18/2023 5:17 PM EDT) Glucose Lvl 115 65 - 199 mg/dL [facility] Comment:Diabetes: >=200 mg/d L plus symptoms BUN 22(H) 8 - 18 mg/dL [facility] Creatinine 1.12 0.70 - 1.20 mg/dL [facility] Sodium 137 135 - 145 mmol/L [facility] Potassium 4.2 3.5 - 5.0 mmol/L [facility] Comment: Please note: ??Patients with WBC >100,000 may have falsely elevated Potassium levels. ??For accurate Potassium quantification in these patients send serum separator tube (gold top) for subsequent determinations. ??Contact the Clinical Chemistry Laboratory if there are any questions. Chloride 101 98 - 107 mmol/L [facility] CO2 22 22 - 31 mmol/L [facility] Anion Gap 14 5 - 15 mmol/L [facility] Calcium 9.6 8.5 - 10.5 mg/dL [facility] Estimated GFR 58(L) >=60 mL/min/1. 73 m?? [facility] Comment: This patient's estimated GFR [...] Lab Eufemia Copeland MD CHEMISTRY ORDERABL ES [facility] [place] [address] * (ABNORMAL) Basic Metabolic Panel (non-fasting) (06/18/2023 4:19 AM EDT) Glucose Lvl 96 65 - 199 mg/dL [facility] Comment:Diabetes: >=200 mg/d L plus symptoms BUN 22(H) 8 - 18 mg/dL [facility] Creatinine 0.93 0.70 - 1.20 mg/dL [facility] Sodium 138 135 - 145 mmol/L [facility] Potassium 4.2 3.5 - 5.0 mmol/L [facility] Comment: Please note: ??Patients with WBC >100,000 may have falsely elevated Potassium levels. ??For accurate Potassium quantification in these patients send serum separator tube (gold top) for subsequent determinations. ??Contact the Clinical Chemistry Laboratory if there are any questions. Chloride 102 98 - 107 mmol/L [facility] CO2 Not Perf 22 - 31 [facility] Comment:Add-on request. Flaca le too old to perform test. Anion Gap Unable to Calculate 5 - 15 mmol/L [facility] Calcium 9.5 8.5 - 10.5 mg/dL [facility] Estimated GFR 73 >=60 mL/min/1 .73 m?? [facility] Comment: This patient's estimated GFR [...] Lab Eufemia Copeland MD CHEMISTRY ORDERABL ES [facility] [address] * Differential, Automated (06/18/2023 4:19 AM EDT) Neutrophils % 54.1 % [facility] Neutr Abs (ANC) 4.52 1.70 - 6.10 x10(3)/[facility] Lymphocytes % 31.0 % [facility] Lymphocytes Abs 2.6 0.9 - 3.2 x10(3)/[facility] Monocytes % 9.2 % [facility] Monocyte Abs 0.8 0.3 - 0.9 x10(3)/[facility] Eosinophils % 4.9 % [facility] Eosinophils Abs 0.4 0.0 - 0.4 x10(3)/[facility] Basophils % 0.6 % [facility] Basophils Abs 0.0 0.0 - 0.1 x10(3)/[facility] Immature Gran % 0.20 % [facility] Comment: Immature granulocytes(IG's)percentage and absolute count will include metamyelocytes, myelocytes, and promyelocytes. Blood smears from CBCs yielding IG's will be scanned manually for concordance. If this scan disagrees with the automated IG or if promyelocytes are noted, a manual differential will be performed. Shonda Gran Abs 0.02 0.00 - 0.04 x10(3)/[facility] Blood 06/18/2023 4:19 AM EDT 06/18/2023 4:40 AM EDT Narrative Resulting Agency Comment Spec In Lab Terrence Keating MD HEMATOLOGY ORDERABLE S [facility] [place] [address] * Hemogram (06/18/2023 4:19 AM EDT) WBC 8.4 4.0 - 9.5 x10(3)/[facility] RBC 4.70 4.00 - 5.21 x10(6)/[facility] Hemoglobin 14.5 11.7 - 15.5 g/dL [facility] Hematocrit 42.8 35.7 - 45.8 % [facility] MCV 91.1 82.6 - 94.4 fL [facility] MCH 30.9 27.1 - 32.0 pg [facility] MCHC 33.9 31.7 - 35.0 g/dL [facility] Platelets 258 145 - 357 x10(3)/[facility] RDWSD 43.6 37.0 - 46.0 [facility] RDWCV 13.0 11.5 - 14.1 % [facility] MPV 10.7 7.6 - 12.9 [facility] nRBC % Auto 0.0 % [facility] nRBC Abs Auto 0.000 0.000 - 0.000 x10(3)/[facility] Blood 06/18/2023 4:19 AM EDT 06/18/2023 4:40 AM EDT Narrative Resulting Agency Comment Spec In Lab Terrence Keating MD HEMATOLOGY ORDERABLE S [facility] [place] [address] * Phosphorus (06/18/2023 4:19 AM EDT) Phosphorus 3.7 2.5 - 4.5 mg/dL [facility] Blood 06/18/2023 4:19 AM EDT 06/18/2023 4:40 AM EDT Narrative Resulting Agency Comment Spec In Lab Eufemia Copeland MD CHEMISTRY ORDERABL ES Performing Organization Address [facility] Co de Phone Number [facility] [place] [address] * Magnesium (06/18/2023 4:19 AM EDT) Magnesium 1.02 0.69 - 1.07 mmol/L [facility] Blood 06/18/2023 4:19 AM EDT 06/18/2023 4:40 AM EDT Narrative Resulting Agency Comment Spec In Lab Eufemia Copeland MD CHEMISTRY ORDERABL ES Performing Organization Address [facility] de Phone Number [facility] [place] [address] * Phosphorus (06/17/2023 2:26 PM EDT) Phosphorus 2.8 2.5 - 4.5 mg/dL [facility] Blood 06/17/2023 2:26 PM EDT 06/17/2023 2:36 PM EDT Narrative Resulting Agency Comment Spec In Lab Eufemia Copeland MD CHEMISTRY ORDERABL ES Performing Organization Address [facility] Co de Phone Number [facility] [address] * Magnesium (06/17/2023 2:26 PM EDT) Magnesium 1.01 0.69 - 1.07 mmol/L [facility] Blood 06/17/2023 2:26 PM EDT 06/17/2023 2:36 PM EDT Narrative Resulting Agency Comment Spec In Lab Eufemia Copeland MD CHEMISTRY ORDERABL ES [facility] [place] [address] * (ABNORMAL) Basic Metabolic Panel (non-fasting) (06/17/2023 2:26 PM EDT) Glucose Lvl 103 65 - 199 mg/dL [facility] Comment:Diabetes: >=200 mg/d L plus symptoms BUN 21(H) 8 - 18 mg/dL [facility] Creatinine 1.07 0.70 - 1.20 mg/dL [facility] Sodium 135 135 - 145 mmol/L [facility] Potassium 3.7 3.5 - 5.0 mmol/L [facility] Comment: Please note: ??Patients with WBC >100,000 may have falsely elevated Potassium levels. ??For accurate Potassium quantification in these patients send serum separator tube (gold top) for subsequent determinations. ??Contact the Clinical Chemistry Laboratory if there are any questions. Chloride 97(L) 98 - 107 mmol/L [facility] CO2 24 22 - 31 mmol/L [facility] Anion Gap 14 5 - 15 mmol/L [facility] Calcium 9.6 8.5 - 10.5 mg/dL [facility] Estimated GFR 62 >=60 mL/min/1. 73 m?? [facility] Comment: This patient's estimated GFR [...] Lab Eufemia Copeland MD CHEMISTRY ORDERABL ES [facility] [place] [address] * XR Abdomen Flat & Upright (06/17/2023 [...] who have questions please contact the health health care aide that requested 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 ? Electronically signed by: Wilton Cabrera MD, [facility] ([phone]), at 06/17/2023 5:30 PM Narrative 06/17/2023 5:30 PM EDT EXAMINATION: XR ABDOMEN FLAT AND UPRIGHT CLINICAL HISTORY: patient with foul odor from [facility]. hx hysterectomy, LLQ tenderness, constipation TECHNIQUE: Supine [...] CLINICAL HISTORY: patient with foul odor from [facility]. hx hysterectomy, LLQ tenderness, constipation TECHNIQUE: Supine [...] patients who have questions please contactthe health health care aide that requested 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 Electronically signed by: Wilton Cabrera MD, [facility]([phone]), at 06/17/2023 5:30 PM Eufemia Copeland MD IMG DX ORDERABLES * (ABNORMAL) Basic Metabolic Panel (non-fasting) (06/17/2023 5:01 AM EDT) Glucose Lvl 100 65 - 199 mg/dL [facility] Comment:Diabetes: >=200 mg/d L plus symptoms BUN 24(H) 8 - 18 mg/dL [facility] Creatinine 1.03 0.70 - 1.20 mg/dL [facility] Sodium 136 135 - 145 mmol/L [facility] Potassium Not Perf 3.5 - 5.0 [facility] Comment: Unable to quantitate due to sample hemolysis. ??Sample redraw suggested. Called by: , Read back by: Olive Hernandez, Date/Time:06/17/23 05:44. Please note: ??Patients with WBC >100,000 may have falsely elevated Potassium levels. ??For accurate Potassium quantification in these patients send serum separator tube (gold top) for subsequent determinations. ??Contact the Clinical Chemistry Laboratory if there are any questions. Chloride 100 98 - 107 mmol/L [facility] CO2 24 22 - 31 mmol/L [facility] Anion Gap 12 5 - 15 mmol/L [facility] Calcium 9.5 8.5 - 10.5 mg/dL [facility] Estimated GFR 65 >=60 mL/min/1. 73 m?? [facility] Comment: This patient's estimated GFR [...] In Lab Terrence Keating MD CHEMISTRY ORDERABLES [facility] [place] [address] * Differential, Automated (06/17/2023 1:11 AM EDT) Neutrophils % 54.5 % [facility] Neutr Abs (ANC) 5.20 1.70 - 6.10 x10(3)/[facility] Lymphocytes % 31.4 % [facility] Lymphocytes Abs 3.0 0.9 - 3.2 x10(3)/[facility] Monocytes % 9.8 % [facility] Monocyte Abs 0.9 0.3 - 0.9 x10(3)/[facility] Eosinophils % 3.4 % [facility] Eosinophils Abs 0.3 0.0 - 0.4 x10(3)/[facility] Basophils % 0.5 % [facility] Basophils Abs 0.0 0.0 - 0.1 x10(3)/[facility] Immature Gran % 0.40 % [facility] Comment: Immature granulocytes(IG's)percentage and absolute count will include metamyelocytes, myelocytes, and promyelocytes. Blood smears from CBCs yielding IG's will be scanned manually for concordance. If this scan disagrees with the automated IG or if promyelocytes are noted, a manual differential will be performed. Shonda Gran Abs 0.04 0.00 - 0.04 x10(3)/[facility] Blood 06/17/2023 1:11 AM EDT 06/17/2023 1:16 AM EDT Narrative Resulting Agency Comment Spec In Lab Terrence Keating MD HEMATOLOGY ORDERABLE S [facility] [place], [place] [address] * Hemogram (06/17/2023 1:11 AM EDT) WBC 9.5 4.0 - 9.5 x10(3)/[facility] LABORATORY RBC 4.60 4.00 - 5.21 x10(6)/[facility] LABORATORY Hemoglobin 14.2 11.7 - 15.5 g/dL [facility] Hematocrit 43.0 35.7 - 45.8 % [facility] MCV 93.5 82.6 - 94.4 fL [facility] MCH 30.9 27.1 - 32.0 pg [facility] MCHC 33.0 31.7 - 35.0 g/dL [facility] Platelets 256 145 - 357 x10(3)/[facility] LABORATORY RDWSD 45.0 37.0 - 46.0 fL [facility] RDWCV 13.2 11.5 - 14.1 % [facility] MPV 10.9 7.6 - 12.9 fL [facility] nRBC % Auto 0.0 % [facility]OR[facility] nRBC Abs Auto 0.000 0.000 - 0.000 x10(3)/[facility] LABORATORY Blood 06/17/2023 1:11 AM EDT 06/17/2023 1:16 AM EDT Narrative Resulting Agency Comment Spec In Lab Terrence Keating MD HEMATOLOGY ORDERABLE S [facility] [place] [address] * Magnesium (06/17/2023 1:11 AM EDT) Pathologist [facility] Magnesium 0.96 0.69 - 1.07 mmol/L [facility] Blood 06/17/2023 1:11 AM EDT 06/17/2023 1:16 AM EDT Narrative Resulting Agency Comment Spec In Lab Eufemia Copeland MD CHEMISTRY ORDERABL ES Performing Organization Address [facility]/ZIP Co de Phone Number [facility] [place] [address] * (ABNORMAL) Basic Metabolic Panel (non-fasting) (06/17/2023 1:11 AM EDT) Pathologist [facility] Glucose Lvl 102 65 - 199 mg/dL [facility] Comment:Diabetes: >=200 mg/d L plus symptoms BUN 24(H) 8 - 18 mg/dL [facility] Creatinine 1.08 0.70 - 1.20 mg/dL [facility] Sodium 137 135 - 145 mmol/L [facility] Potassium 4.1 3.5 - 5.0 mmol/L [facility] Comment: Please note: ??Patients with WBC >100,000 may have falsely elevated Potassium levels. ??For accurate Potassium quantification in these patients send serum separator tube (gold top) for subsequent determinations. ??Contact the Clinical Chemistry Laboratory if there are any questions. Chloride 100 98 - 107 mmol/L [facility] CO2 24 22 - 31 mmol/L [facility] Anion Gap 13 5 - 15 mmol/L [facility] Calcium 9.2 8.5 - 10.5 mg/dL [facility] Estimated GFR 61 >=60 mL/min/1. 73 m?? [facility] Comment: This patient's estimated GFR was calculated using the 2021 CKD-EPI equation. The estimated GFR can vary [...] In Lab Terrence Keating MD CHEMISTRY ORDERABLES [facility] [place] [place] [address] * (ABNORMAL) Basic Metabolic Panel (non-fasting) (06/16/2023 8:28 PM EDT) Glucose Lvl 111 65 - 199 mg/dL [facility] Comment:Diabetes: >=200 mg/d L plus symptoms BUN 23(H) 8 - 18 mg/dL [facility] Creatinine 1.21(H) 0.70 - 1.20 mg/dL [facility] Sodium 137 135 - 145 mmol/L [facility] Potassium 4.2 3.5 - 5.0 mmol/L [facility] Comment: Please note: ??Patients with WBC >100,000 may have falsely elevated Potassium levels. ??For accurate Potassium quantification in these patients send serum separator tube (gold top) for subsequent determinations. ??Contact the Clinical Chemistry Laboratory if there are any questions. Chloride 99 98 - 107 mmol/L [facility] CO2 26 22 - 31 mmol/L [facility] Anion Gap 12 5 - 15 mmol/L [facility] Calcium 9.3 8.5 - 10.5 mg/dL [facility] Estimated GFR 53(L) >=60 mL/min/1. 73 m?? [facility] Comment: This patient's estimated GFR [...] Lab Eufemia Copeland MD CHEMISTRY ORDERABL ES [facility] [place] [address] * (ABNORMAL) Basic Metabolic Panel (non-fasting) (06/16/2023 2:29 PM EDT) Glucose Lvl 175 65 - 199 mg/dL [facility] Comment:Diabetes: >=200 mg/d L plus symptoms BUN 25(H) 8 - 18 mg/dL [facility] Creatinine 1.27(H) 0.70 - 1.20 mg/dL [facility] Sodium 135 135 - 145 mmol/L [facility] Potassium 3.9 3.5 - 5.0 mmol/L [facility] Comment: result rechecked-EL Please note: ??Patients with WBC >100,000 may have falsely elevated Potassium levels. ??For accurate Potassium quantification in these patients send serum separator tube (gold top) for subsequent determinations. ??Contact the Clinical Chemistry Laboratory if there are any questions. Chloride 96(L) 98 - 107 mmol/L [facility] CO2 26 22 - 31 mmol/L [facility] Anion Gap 13 5 - 15 mmol/L [facility] Calcium 9.3 8.5 - 10.5 mg/dL [facility] Estimated GFR 50(L) >=60 mL/min/1. 73 m?? [facility] Comment: This patient's estimated GFR [...] Lab Eufemia Copeland MD CHEMISTRY ORDERABL ES [facility] [place] [id number] * (ABNORMAL) Basic Metabolic Panel (non-fasting) (06/16/2023 9:01 AM EDT) Glucose Lvl 148 65 - 199 mg/dL [facility] Comment:Diabetes: >=200 mg/d L plus symptoms BUN 27(H) 8 - 18 mg/dL [facility] Creatinine 1.27(H) 0.70 - 1.20 mg/dL [facility] Sodium 136 135 - 145 mmol/L [facility] Potassium 2.9(Criti edy) 3.5 - 5.0 mmol/L [facility] Comment: called by tmp /read back by (Malia Mcintyre)/ 06/16/23 @450 Please note: ??Patients with WBC >100,000 may have falsely elevated Potassium levels. ??For accurate Potassium quantification in these patients send serum separator tube (gold top) for subsequent determinations. ??Contact the Clinical Chemistry Laboratory if there are any questions. Chloride 91(L) 98 - 107 mmol/L [facility] CO2 32(H) 22 - 31 mmol/L [facility] Anion Gap 13 5 - 15 mmol/L [facility] Calcium 9.7 8.5 - 10.5 mg/dL [facility] Estimated GFR 50(L) >=60 mL/min/1. 73 m?? [facility] Comment: This patient's estimated GFR [...] Lab Eufemia Copeland MD CHEMISTRY ORDERABL ES [facility] [place] [address] * (ABNORMAL) Magnesium (06/16/2023 3:30 AM EDT) Magnesium 1.09(H) 0.69 - 1.07 mmol/L [facility] Blood Venous Draw / Unknown 06/16/2023 3:30 AM EDT 06/16/2023 3:38 AM EDT Narrative Resulting Agency Comment Spec In Lab Eufemia Copeland MD CHEMISTRY ORDERABL ES [facility] [place] [place] [address] * (ABNORMAL) Differential, Automated (06/16/2023 3:30 AM EDT) Neutrophils % 50.4 % [facility] Neutr Abs (ANC) 4.15 1.70 - 6.10 x10(3)/[facility] LABORATORY Lymphocytes % 33.7 % [facility] Lymphocytes Abs 2.8 0.9 - 3.2 x10(3)/[facility] LABORATORY Monocytes % 11.8 % [facility] Monocyte Abs 1.0(H) 0.3 - 0.9 x10(3)/[facility] LABORATORY Eosinophils % 3.3 % [facility] Eosinophils Abs 0.3 0.0 - 0.4 x10(3)/[facility] LABORATORY Basophils % 0.6 % [facility] Basophils Abs 0.0 0.0 - 0.1 x10(3)/[facility] LABORATORY Immature Gran % 0.20 % [facility] Comment: Immature granulocytes(IG's)percentage and absolute count will include metamyelocytes, myelocytes, and promyelocytes. Blood smears from CBCs yielding IG's will be scanned manually for concordance. If this scan disagrees with the automated IG or if promyelocytes are noted, a manual differential will be performed. Shonda Gran Abs 0.02 0.00 - 0.04 x10(3)/[facility] LABORATORY Blood 06/16/2023 3:30 AM EDT 06/16/2023 3:37 AM EDT Narrative Resulting Agency Comment Spec In Lab Terrence Keating MD HEMATOLOGY ORDERABLE S [facility] [place] [address] * Hemogram (06/16/2023 3:30 AM EDT) WBC 8.2 4.0 - 9.5 x10(3)/[facility] LABORATORY RBC 4.69 4.00 - 5.21 x10(6)/[facility] LABORATORY Hemoglobin 14.5 11.7 - 15.5 g/dL [facility] Hematocrit 42.7 35.7 - 45.8 % [facility] MCV 91.0 82.6 - 94.4 [facility] LABORATORY MCH 30.9 27.1 - 32.0 pg [facility] MCHC 34.0 31.7 - 35.0 g/dL [facility] Platelets 260 145 - 357 x10(3)/[facility] LABORATORY RDWSD 43.5 37.0 - 46.0 [facility] LABORATORY RDWCV 13.0 11.5 - 14.1 % [facility] MPV 11.1 7.6 - 12.9 [facility] LABORATORY nRBC % Auto 0.0 % [facility] nRBC Abs Auto 0.000 0.000 - 0.000 x10(3)/[facility] LABORATORY Blood 06/16/2023 3:30 AM EDT 06/16/2023 3:37 AM EDT Narrative Resulting Agency Comment Spec In Lab Terrence Keating MD HEMATOLOGY ORDERABLE S [facility] [place] [address] * (ABNORMAL) Basic Metabolic Panel (non-fasting) (06/16/2023 3:30 AM EDT) Glucose Lvl 110 65 - 199 mg/dL [facility] Comment:Diabetes: >=200 mg/d L plus symptoms BUN 28(H) 8 - 18 mg/dL [facility] Creatinine 1.20 0.70 - 1.20 mg/dL [facility] Sodium 135 135 - 145 mmol/L [facility] Potassium 2.7(Criti edy) 3.5 - 5.0 mmol/L [facility] Comment: called by [place] /read back by Jolly Friedman / 06/16/23 [id number] Please note: ??Patients with WBC >100,000 may have falsely elevated Potassium levels. ??For accurate Potassium quantification in these patients send serum separator tube (gold top) for subsequent determinations. ??Contact the Clinical Chemistry Laboratory if there are any questions. Chloride 90(L) 98 - 107 mmol/L [facility] CO2 33(H) 22 - 31 mmol/L [facility] Anion Gap 12 5 - 15 mmol/L [facility] Calcium 9.2 8.5 - 10.5 mg/dL [facility] Estimated GFR 54(L) >=60 mL/min/1. 73 m?? [facility] Comment: This patient's estimated GFR [...] MD CHEMISTRY ORDERABL ES Performing Organization Address City/State/[facility] Co de Phone Number [facility] [place] [address] * Heparin (unfractionated) Level (06/16/2023 3:30 AM EDT) Heparin UFH Level 0.64 IU/mL [facility] Comment: Heparin (anti-Xa) levels should [...] Lab Terrence Keating MD HEMATOLOGY ORDERABLE S [facility] [place] [address] * Lipid Panel (Reflex Direct LDL) (06/16/2023 3:30 AM EDT) Chol, Total 190 mg/dL [facility] Comment: Desirable: ? <200 mg/dL Borderline High: 200-239 mg/dL Higher: ?>ww=719 mg/dL Triglycerides 126 mg/dL [facility] Comment: Normal: ?<150 mg/dL Borderline High: 150-199 mg/dL High: ?200-499 mg/dL Very High: ? >kq=912 mg/dL HDL 50 mg/dL [facility] Comment: Females: High Risk: <50 mg/dL Males: High Risk: <40 mg/dL LDL Cholesterol 115 mg/dL [facility] Comment: Desirable: ? <100 mg/dL Above Desirable: 100-129 mg/dL Borderline High: 130-159 mg/dL High: ?160-189 mg/dL Very High: ? >ty=899 mg/dL Lipid Interpretation See Note [facility] Comment: It is important to [...] ACC/AHA Guidelines (most recently Ysabel et al. [facility] 12/09/21): For individuals with atherosclerotic cardiovascular disease (ASCVD)or LDL >nk=707 mg/dL, use a high-intensity statin (40-80 mg [...] In Lab Terrence Keating MD CHEMISTRY ORDERABLES [facility] [place] [place] [address] * (ABNORMAL) Basic Metabolic Panel (non-fasting) (06/15/2023 9:33 PM EDT) Glucose Lvl 120 65 - 199 mg/dL [facility] Comment:Diabetes: >=200 mg/d L plus symptoms BUN 29(H) 8 - 18 mg/dL [facility] Creatinine 1.38(H) 0.70 - 1.20 mg/dL [facility] Sodium 135 135 - 145 mmol/L [facility] Potassium 3.1(L) 3.5 - 5.0 mmol/L [facility] Comment: Please note: ??Patients with WBC >100,000 may have falsely elevated Potassium levels. ??For accurate Potassium quantification in these patients send serum separator tube (gold top) for subsequent determinations. ??Contact the Clinical Chemistry Laboratory if there are any questions. Chloride 92(L) 98 - 107 mmol/L [facility] CO2 31 22 - 31 mmol/L [facility] Anion Gap 12 5 - 15 mmol/L [facility] Calcium 9.4 8.5 - 10.5 mg/dL [facility] Estimated GFR 45(L) >=60 mL/min/1. 73 m?? [facility] Comment: This patient's estimated GFR [...] MD CHEMISTRY ORDERABL ES Performing Organization Address City/[facility]/ZIP Co de Phone Number [facility] [place] [address] * Heparin (unfractionated) Level (06/15/2023 9:33 PM EDT) Heparin UFH Level 0.63 IU/mL [facility] Comment: Heparin (anti-Xa) levels should [...] MD HEMATOLOGY ORDERABLE S Performing Organization Address [facility] Co de Phone Number [facility] [place] [address] * (ABNORMAL) Magnesium (06/15/2023 5:47 PM EDT) [facility] Magnesium 1.10(H) 0.69 - 1.07 mmol/L [facility] Blood Venous Draw / Unknown 06/15/2023 5:47 PM EDT 06/15/2023 6:10 PM EDT Narrative Resulting Agency Comment Spec In Lab Terrence Keating MD CHEMISTRY ORDERABLES Performing Organization Address [facility]/ZIP Co de Phone Number [facility] [address] * (ABNORMAL) Basic Metabolic Panel (non-fasting) (06/15/2023 5:47 PM EDT) Glucose Lvl 147 65 - 199 mg/dL [facility] Comment:Diabetes: >=200 mg/d L plus symptoms BUN 29(H) 8 - 18 mg/dL [facility] Creatinine 1.20 0.70 - 1.20 mg/dL [facility] Sodium 134(L) 135 - 145 mmol/L [facility] Potassium 2.9(Criti edy) 3.5 - 5.0 mmol/L [facility] Comment: Called by: dm, Read back by: qamar ren, Date/Time:06/15/23 19:11. Please note: ??Patients with WBC >100,000 may have falsely elevated Potassium levels. ??For accurate Potassium quantification in these patients send serum separator tube (gold top) for subsequent determinations. ??Contact the Clinical Chemistry Laboratory if there are any questions. Chloride 89(L) 98 - 107 mmol/L [facility] CO2 29 22 - 31 mmol/L [facility] Anion Gap 16(H) 5 - 15 mmol/L [facility] Calcium 9.1 8.5 - 10.5 mg/dL [facility] Estimated GFR 54(L) >=60 mL/min/1. 73 m?? [facility] Comment: This patient's estimated GFR [...] Lab Eufemia Copeland MD CHEMISTRY ORDERABL ES [facility] [place] [address] * Rapid Drug Screen w/o Confirmation, Urine (06/15/2023 4:46 PM EDT) U Barbiturates Screen None Detected None Detected [facility] Comment: The barbiturate screen detects barbiturates [...] U Benzodiazepines Screen None Detected None Detected [facility] Comment: The benzodiazepines screen detects benzodiazepines [...] U Cocaine Screen None Detected None Detected [facility] Comment: The cocaine metabolites screen detects benzoylecgonine (Cocaine Metabolite) at concentrations >150 ng/mL. A ? Presumptive Positive? result indicates that the screening result was positive but has not yet been confirmed by a highly-specific method. As with any screen, occasional false positive results from cross-reacting substances may occur. Not for Medico-Legal Purposes. U Methadone Metabolites Screen None Detected None Detected [facility] Comment: The methadone metabolite screen detects EDDP (major methadone metabolite) at concentrations >100 ng/mL. A ? Presumptive Positive? result indicates that the screening result was positive but has not yet been confirmed by a highly-specific method. As with any screen, occasional false positive results from cross-reacting substances may occur. Not for Medico-Legal Purposes. U Opiate Screen None Detected None Detected [facility] Comment: The opiates screen detects opiates [...] U Cannabinoid Screen None Detected None Detected [facility] Comment: The marijuana metabolites screen detects the THC metabolite (19-olr-1-carboxy-delta 9-THC) at concentrations >20 ng/mL. A ? Presumptive Positive? result indicates that the screening result was positive but has not yet been confirmed by a highly-specific method. As with any screen, occasional false positive results from cross-reacting substances may occur. Not for Medico-Legal Purposes. U Oxycodone Screen None Detected None Detected [facility] Comment: The oxycodone screen detects oxycodone and oxymorphone at concentrations >100 ng/mL. A ? Presumptive Positive? result indicates that the screening result was positive but has not yet been confirmed by a highly-specific method. As with any screen, occasional false positive results from cross-reacting substances may occur. Not for Medico-Legal Purposes. U Buprenorphine Screen None Detected None Detected [facility] Comment: The buprenorphine screen detects buprenorphine [...] characteristics of this test were determined by [facility] in accordance with CLIA requirements. This laboratory is qualified under CLIA to perform high-complexity testing. U Fentanyl Screen None Detected None Detected [facility] Comment: The fentanyl screen detects fentanyl [...] characteristics of this test were determined by [facility] in accordance with CLIA requirements. This laboratory is qualified under CLIA to perform high-complexity testing. U Tricyclics Screen None Detected None Detected [facility] Comment: The tricyclics screen detects tricyclic [...] characteristics of this test were determined by [facility] in accordance with CLIA requirements. This laboratory is qualified under CLIA to perform high-complexity testing. U Ethanol Screen None Detected None Detected [facility] Comment:This urine ethanol a ssay detects ethanol at concentrations >/= 100 mg/L. U Amphetamines Screen None Detected None Detected [facility] Comment: The amphetamine screen detects d-amphetamine and d-methamphetamine at concentrations >300 ng/mL. A ? Presumptive Positive? result indicates that the screening result was positive but has not yet been confirmed by a highly-specific method. As with any screen, occasional false positive results from cross-reacting substances may occur. Not for Medico-Legal Purposes. U Creat TEE 39 >=20 mg/dL [facility] U Chromate TEE <2.0 <=49.9 mg/L [facility] U Nitrite TEE <50 <=499 mg/L [facility] U Oxidant TEE 12 <=199 mg/L [facility] U pH TEE 5.4 3.0 - 10.9 [facility] U Adulterants Screen None Detected None Detected [facility] Comment:No adulteration of t his urine sample was detected. Urine 06/15/2023 4:46 PM EDT 06/15/2023 5:30 PM EDT Narrative Resulting Agency Comment Spec In Lab Eufemia Copeland MD CHEMISTRY ORDERABL ES Performing Organization Address [facility] Co de Phone Number [facility] [place] [address] * Rapid Drug Screen, Urine (TEE Request) (06/15/2023 4:46 PM EDT) ETE Conf Requested No [facility] TEE Requested See Comment [facility] Comment:Refer to Rapid Drug Screen w/o Confirmation, Urine for results. Urine 06/15/2023 4:46 PM EDT 06/15/2023 5:30 PM EDT Narrative Resulting Agency Comment Spec In Lab Eufemia Copeland MD URINE ORDERABLES Performing Organization Address [facility] Co de Phone Number [facility] [address] * (ABNORMAL) Basic Metabolic Panel (non-fasting) (06/15/2023 2:29 PM EDT) Glucose Lvl 141 65 - 199 mg/dL [facility] Comment:Diabetes: >=200 mg/d L plus symptoms BUN 31(H) 8 - 18 mg/dL [facility] Creatinine 1.21(H) 0.70 - 1.20 mg/dL [facility] Sodium 132(L) 135 - 145 mmol/L [facility] Potassium 3.0(Criti edy) 3.5 - 5.0 mmol/L [facility] Comment: Called by: dm, Read back by: qamar ren, Date/Time:06/15/23 15:18. Please note: ??Patients with WBC >100,000 may have falsely elevated Potassium levels. ??For accurate Potassium quantification in these patients send serum separator tube (gold top) for subsequent determinations. ??Contact the Clinical Chemistry Laboratory if there are any questions. Chloride 89(L) 98 - 107 mmol/L [facility] CO2 32(H) 22 - 31 mmol/L [facility] Anion Gap 11 5 - 15 mmol/L [facility] Calcium 9.6 8.5 - 10.5 mg/dL [facility] Estimated GFR 53(L) >=60 mL/min/1. 73 m?? [facility] Comment: This patient's estimated GFR [...] Lab Eufemia Copeland MD CHEMISTRY ORDERABL ES [facility] [place] [place] [address] * Heparin (unfractionated) Level (06/15/2023 2:29 PM EDT) Heparin UFH Level 0.93 IU/mL [facility] Comment: Heparin (anti-Xa) levels should [...] MD HEMATOLOGY ORDERABLE S Performing Organization Address City/[facility]/ZIP Co de Phone Number [facility] [address] * EKG 12 Lead (06/15/2023 10:50 AM EDT) Ventricular rate 55 BPM MUSE SYSTEM Atrial Rate 55 BPM MUSE SYSTEM P-R Interval 184 ms MUSE SYSTEM QRS Duration 96 ms MUSE SYSTEM Q-T Interval 590 ms MUSE SYSTEM QTC Calculated (Bezet) 565 ms MUSE SYSTEM Calculated P [place] 54 degrees MUSE SYSTEM Calculated R [place] 54 degrees MUSE SYSTEM Calculated T [place] 13 degrees MUSE SYSTEM INTERPRETATION Sinus bradycardia with sinus arrhythmia Marked ST abnormality, possible inferior subendocardial injury Long QT interval Abnormal ECG When compared with ECG of 15-JUN-2023 02:17, Nonspecific T wave abnormality has replaced inverted T waves in Lateral leads Confirmed by Kai Haider ([id number]) on 06/16/2023 3:52:04 PM MUSE SYSTEM 06/15/2023 10:5 0 AM EDT 06/16/2023 3:52 PM EDT Terrence Keating MD ECG ORDERABLES Performing Organization Address [facility] Co de Phone Number MUSE SYSTEM * (ABNORMAL) Basic Metabolic Panel (non-fasting) (06/15/2023 8:18 AM EDT) Glucose Lvl 113 65 - 199 mg/dL [facility] Comment:Diabetes: >=200 mg/d L plus symptoms BUN 29(H) 8 - 18 mg/dL [facility] Creatinine 1.22(H) 0.70 - 1.20 mg/dL [facility] Sodium 134(L) 135 - 145 mmol/L [facility] Potassium 2.5(Criti edy) 3.5 - 5.0 mmol/L [facility] Comment: Called by: cheryl, Read back by: eamon mckeon, Date/Time:06/15/23 09:34. Please note: ??Patients with WBC >100,000 may have falsely elevated Potassium levels. ??For accurate Potassium quantification in these patients send serum separator tube (gold top) for subsequent determinations. ??Contact the Clinical Chemistry Laboratory if there are any questions. Chloride 89(L) 98 - 107 mmol/L [facility] CO2 30 22 - 31 mmol/L [facility] Anion Gap 15 5 - 15 mmol/L [facility] Calcium 10.0 8.5 - 10.5 mg/dL [facility] Estimated GFR 53(L) >=60 mL/min/1. 73 m?? [facility] Comment: This patient's estimated GFR [...] Lab Eufemia Copeland MD CHEMISTRY ORDERABL ES [facility] [place] [address] * Heparin (unfractionated) Level (06/15/2023 8:18 AM EDT) Heparin UFH Level 0.70 IU/mL [facility] Comment: Heparin (anti-Xa) levels should [...] Lab Terrence Keating MD HEMATOLOGY ORDERABLE S [facility] [place] [address] * (ABNORMAL) Troponin (06/15/2023 8:18 AM EDT) Troponin-T HS 33(H) <=14 ng/L [facility] Comment: This patient's troponin T [...] troponin value can be found in the [facility] Laboratory Test Catalog Troponin - [facility] Laboratory Test Catalog Reference: Fourth [place] Definition of Myocardial Infarction. Journal of the [place] [employer] 2018;72:9682-5508 Blood 06/15/2023 8:18 AM EDT 06/15/2023 8:34 AM EDT Narrative Resulting Agency Comment Spec In Lab Terrence Keating MD CHEMISTRY ORDERABLES Performing Organization Address City/[facility] Co de Phone Number [facility] [place] [address] * Differential, Automated (06/15/2023 4:28 AM EDT) Neutrophils % 48.0 % [facility] Neutr Abs (ANC) 3.20 1.70 - 6.10 x10(3)/[facility] Lymphocytes % 35.8 % [facility] Lymphocytes Abs 2.4 0.9 - 3.2 x10(3)/[facility] Monocytes % 11.4 % [facility] Monocyte Abs 0.8 0.3 - 0.9 x10(3)/[facility] Eosinophils % 3.7 % [facility] Eosinophils Abs 0.2 0.0 - 0.4 x10(3)/[facility] Basophils % 1.0 % [facility] Basophils Abs 0.1 0.0 - 0.1 x10(3)/[facility] Immature Gran % 0.10 % [facility] Comment: Immature granulocytes(IG's)percentage and absolute count will include metamyelocytes, myelocytes, and promyelocytes. Blood smears from CBCs yielding IG's will be scanned manually for concordance. If this scan disagrees with the automated IG or if promyelocytes are noted, a manual differential will be performed. Shonda Gran Abs 0.01 0.00 - 0.04 x10(3)/[facility] Blood 06/15/2023 4:28 AM EDT 06/15/2023 4:37 AM EDT Narrative Resulting Agency Comment Spec In Lab Terrence Keating MD HEMATOLOGY ORDERABLE S [facility] [place] [address] * (ABNORMAL) Hemogram (06/15/2023 4:28 AM EDT) [facility] WBC 6.7 4.0 - 9.5 x10(3)/[facility] RBC 5.09 4.00 - 5.21 x10(6)/[facility] Hemoglobin 16.1(H) 11.7 - 15.5 g/dL [facility] Hematocrit 48.2(H) 35.7 - 45.8 % [facility] MCV 94.7(H) 82.6 - 94.4 [facility] MCH 31.6 27.1 - 32.0 pg [facility] MCHC 33.4 31.7 - 35.0 g/dL [facility] Platelets 253 145 - 357 x10(3)/[facility] RDWSD 45.5 37.0 - 46.0 [facility] RDWCV 13.0 11.5 - 14.1 % [facility] MPV 10.6 7.6 - 12.9 [facility] nRBC % Auto 0.0 % [facility] nRBC Abs Auto 0.000 0.000 - 0.000 x10(3)/[facility] Blood 06/15/2023 4:28 AM EDT 06/15/2023 4:37 AM EDT Narrative Resulting Agency Comment Spec In Lab Terrence Keating MD HEMATOLOGY ORDERABLE S [facility] [place] [address] * (ABNORMAL) Troponin (06/15/2023 4:28 AM EDT) Pathologist [facility] Troponin-T HS 34(H) <=14 ng/L [facility] Comment: This patient's troponin T [...] troponin value can be found in the [facility] Test Catalog Troponin - [facility] Test Catalog Reference: Fourth [place] Definition of Myocardial Infarction. Journal of the [place] [employer] 2018;72:3317-3701 Blood 06/15/2023 4:28 AM EDT 06/15/2023 4:37 AM EDT Narrative Resulting Agency Comment Spec In Lab Terrence Keating MD CHEMISTRY ORDERABLES [facility] [place] [address] * (ABNORMAL) Prothrombin Time (06/15/2023 4:28 AM EDT) PT 12.7(H) 9.4 - 12.5 sec [facility] INR 1.1 [facility] Comment: An INR <2.0 [...] Lab Terrence Keating MD HEMATOLOGY ORDERABLE S [facility] [place] [address] * (ABNORMAL) Hepatic Function Panel (06/15/2023 4:28 AM EDT) Total Protein 7.5 6.1 - 8.0 g/dL [facility] Albumin 4.3 3.2 - 5.2 g/dL [facility] AST 32(H) 0 - 30 unit/L [facility] ALT 26 0 - 30 unit/L [facility] Alk Phos 70 35 - 105 unit/L [facility] Total Bilirubin 0.8 0.2 - 1.3 mg/dL [facility] Bili, Direct 0.1 0.0 - 0.3 mg/dL [facility] Blood 06/15/2023 4:28 AM EDT 06/15/2023 4:37 AM EDT Narrative Resulting Agency Comment Spec In Lab Terrence Keating MD CHEMISTRY ORDERABLES Performing Organization Address [facility]/ZIP Co de Phone Number [facility] [place] [address] * (ABNORMAL) pro-Brain Natriuretic Peptide (06/15/2023 4:28 AM EDT) ProBNP 1,953(H) <=124 pg/mL [facility] Blood 06/15/2023 4:28 AM EDT 06/15/2023 4:37 AM EDT Narrative Resulting Agency Comment Spec In Lab Terrence Keating MD CHEMISTRY ORDERABLES [facility] [place] [address] * TSH (06/15/2023 4:28 AM EDT) TSH 2.98 0.27 - 4.20 mcIU/mL [facility] Comment: Reference Interval (mcIU/mL): Females: ??First Trimester: 0.23-3.88 ??Second Trimester: 0.22-3.90 ??Third Trimester: 0.44-4.66 Blood 06/15/2023 4:28 AM EDT 06/15/2023 4:37 AM EDT Narrative Resulting Agency Comment Spec In Lab Terrence Keating MD CHEMISTRY ORDERABLES Performing Organization Address City/[facility]/ZIP Co de Phone Number [facility] [place] [address] * Phosphorus (06/15/2023 4:28 AM EDT) Phosphorus 4.4 2.5 - 4.5 mg/dL [facility] Blood 06/15/2023 4:28 AM EDT 06/15/2023 4:37 AM EDT Narrative Resulting Agency Comment Spec In Lab Terrence Keating MD CHEMISTRY ORDERABLES Performing Organization Address City/[facility]/ZIP Co de Phone Number [facility] [address] * (ABNORMAL) Magnesium (06/15/2023 4:28 AM EDT) Magnesium 1.22(H) 0.69 - 1.07 mmol/L [facility] Blood 06/15/2023 4:28 AM EDT 06/15/2023 4:37 AM EDT Narrative Resulting Agency Comment Spec In Lab Terrence Keating MD CHEMISTRY ORDERABLES Performing Organization Address City/[facility]/ZIP Co de Phone Number [facility] [place] [address] * Calcium (06/15/2023 4:28 AM EDT) Calcium 9.7 8.5 - 10.5 mg/dL [facility] Blood 06/15/2023 4:28 AM EDT 06/15/2023 4:37 AM EDT Narrative Resulting Agency Comment Spec In Lab Terrence Keating MD CHEMISTRY ORDERABLES [facility] [address] [place] [address] * (ABNORMAL) Basic Metabolic Panel (non-fasting) (06/15/2023 4:28 AM EDT) Glucose Lvl 112 65 - 199 mg/dL [facility] Comment:Diabetes: >=200 mg/d L plus symptoms BUN 30(H) 8 - 18 mg/dL [facility] Creatinine 1.24(H) 0.70 - 1.20 mg/dL [facility] Sodium 134(L) 135 - 145 mmol/L [facility] Potassium 2.7(Criti edy) 3.5 - 5.0 mmol/L [facility] Comment: Called by: , Read back by: Olive Hernandez, Date/Time:06/15/23 05:16. Please note: ??Patients with WBC >100,000 may have falsely elevated Potassium levels. ??For accurate Potassium quantification in these patients send serum separator tube (gold top) for subsequent determinations. ??Contact the Clinical Chemistry Laboratory if there are any questions. Chloride 90(L) 98 - 107 mmol/L [facility] CO2 28 22 - 31 mmol/L [facility] Anion Gap 16(H) 5 - 15 mmol/L [facility] Calcium 9.7 8.5 - 10.5 mg/dL [facility] Estimated GFR 52(L) >=60 mL/min/1. 73 m?? [facility] Comment: This patient's estimated GFR [...] Keating MD CHEMISTRY ORDERABLES Performing Organization Address City/[facility] Co de Phone Number [facility] [place] [phone] * EKG 12 Lead (06/15/2023 2:17 AM EDT) Ventricular rate 57 BPM MUSE SYSTEM Atrial Rate 57 BPM MUSE SYSTEM P-R Interval 200 ms MUSE SYSTEM QRS Duration 94 ms MUSE SYSTEM Q-T Interval 606 ms MUSE SYSTEM QTC Calculated (Bezet) 591 ms MUSE SYSTEM Calculated P [place] 66 degrees MUSE SYSTEM Calculated R [place] 74 degrees MUSE SYSTEM Calculated T Marion -33 degrees MUSE SYSTEM INTERPRETATION Sinus bradycardia Possible Lateral infarct (cited on or before 17-APR-2023) Marked ST abnormality, possible inferior subendocardial injury Prolonged QTc Abnormal ECG When compared with ECG of 20-APR-2023 10:23, Nonspecific T wave changes QT has lengthened Confirmed by fellow MD Hansa, Sindhu ([id number]) on 06/15/2023 4:36:19 PM Confirmed by MD Angelo Danette ([id number]) on 06/15/2023 4:51:21 PM MUSE SYSTEM 06/15/2023 2:17 AM EDT 06/15/2023 4:51 PM EDT Terrence Keating MD ECG ORDERABLES Performing Organization Address City/[facility]/ZIP Co de Phone Number MUSE SYSTEM documented in this encounter Visit Diagnoses Not on filedocumented in this encounter Admitting Diagnoses Diagnosis NSTEMI (non-ST elevated myocardial infarction) Acute myocardial infarction, subendocardial infarction, episode of care unspecified documented in this encounter Administered Medications Inactive Administered Medications - up to 3 most recent administrations Medication Order MAR Action Action Date Dose Rate Site acetaminophen (Tylenol) tablet 650 mg 650 mg, Oral, EVERY 6 HOURS PRN, Starting on Wed07/05/23 at 1522, Until Wed07/09/23 at 1844, Pain, [...] Given 07/04/2023 9:02 AM EDT 2.5 mg amLODIPine (Norvasc) tablet 2.5 mg 2.5 mg, Oral, DAILY, First dose on Wed06/15/23 at 0900, Until Discontinued, Routine Given 07/09/2023 9:31 AM EDT 2.5 mg Given 07/08/2023 8:56 AM EDT [...] Given 07/06/2023 5:49 PM EDT [address] (Cymbalta) capsule 60 mg 60 mg, Oral, DAILY, First dose on Wed06/15/23 at 0900, Until Discontinued, Routine Given 07/09/2023 9:31 AM EDT 60 mg Given 07/08/2023 8:56 AM EDT 60 mg Given 07/07/2023 8:53 AM EDT 60 mg gabapentin (Neurontin) capsule 600 mg 600 mg, Oral, NIGHTLY, First dose on Wed06/15/23 at 0200, Until Discontinued, Routine Given 07/08/2023 9:16 PM E DT 600 mg Given 07/07/2023 9:37 PM EDT 600 mg Given 07/06/2023 8:51 PM EDT 600 mg lidocaine (Lidoderm) 5% patch 1 patch 1 patch, Transdermal, Administer over 12 Hours, EVERY 24 HOURS, First dose (after last modification) on Wed07/04/23 at 1000, Until Discontinued, Apply patch(es) for 12 hours, and then remove for 12 hours.for right lower back, Routine Patch Applied 07/04/2023 9:03 AM EDT 1 patch 06- Back Upper (Right) melatonin tablet 6 mg 6 mg, Oral, NIGHTLY, First dose on Wed06/15/23 at 0200, Until Discontinued Given 07/08/2023 9:17 PM EDT 6 mg Given 07/07/2023 9:37 PM EDT 6 mg Given 07/06/2023 8:52 PM EDT 6 mg metoprolol succinate XL (Toprol-XL) tablet 12.5 mg 12.5 mg, Oral, DAILY, First dose on Wed06/21/23 at 0900, Until Discontinued, DO NOT CRUSH OR OPEN Hold for HR <55 and Sbp <90, Routine Given 07/09/2023 9:30 AM EDT 12.5 mg Given 07/07/2023 8:54 AM EDT 12.5 mg Given 07/06/2023 9:15 AM EDT 12.5 mg nitroGLYcerin (Nitrostat) disintegrating [...] Given 07/07/2023 8:54 AM EDT 40 mg polyethylene glycoL (Miralax) packet 17 g 17 g, Oral, DAILY, First dose on Wed06/17/23 at 1100, Until Discontinued, Routine Given 07/04/2023 8:42 AM EDT 17 g Given 07/01/2023 9:04 AM EDT 17 g Given 06/30/2023 8:23 AM EDT 17 g ranolazine ER (Ranexa) tablet 1,000 mg 1,000 mg, Oral, 2 TIMES DAILY, First dose (after last modification) on Wed06/24/23 at 2100, Until Discontinued, DO NOT CRUSH OR OPEN. Baseline EKG required before administration., Routine, Has baseline EKG been obtained? Yes Given 07/09/2023 9:38 AM EDT 1,000 mg Given 07/08/2023 9:17 PM EDT 1,000 mg Given 07/08/2023 8:56 AM EDT 1,000 mg rimegepant (Nurtec ODT) Tablet, Rapid Dissolve [...] Given 07/06/2023 9:00 PM EDT 2 tablets simethicone (Gas-X Chew) 80 mg chewable tablet [...] Given 07/07/2023 8:53 AM EDT 25 mg topiramate (Topamax) tablet 100 mg 100 mg, Oral, NIGHTLY, First dose on Wed06/15/23 at 2100, Until Discontinued, Routine Given 07/08/2023 9:17 PM E DT 100 mg Given 07/07/2023 9:37 PM EDT 100 mg Given 07/06/2023 8:52 PM EDT 100 mg documented in this encounter Active and Recently Administered Medications Times are shown in EDT. Scheduled Medication Order 07/07/2023 07/08/2023 07/09/2023 amLODIPine (Norvasc) tablet 2.5 mg 2.5 mg, Oral, DAILY, First dose on Wed06/15/23 at 0900, Until Discontinued, Routine 0854 (Given - Provider: Heidy Paris RN)1332 (MAY Hold - Provider: Admin Adt - Reason: Transfer to a Procedural area)1548 (MAY Unhold - Provider: Admin Adt) 0856 (Given [...] Wed06/15/23 at 1700, Until Discontinued, Routine 1332 (MAY Hold - Provider: Admin Adt - Reason: Transfer to a Procedural area)1548 (MAY Unhold - Provider: Admin Adt)1656 (Given - Provider: Heidy Paris RN) 1708 (Given - Provider: Heidy Paris RN) clopidogreL (Plavix) tablet 75 mg (CANCELED) 75 mg, Oral, DAILY, First dose on Wed07/03/23 at 0900, Until Discontinued, Routine 0854 (Given - Provider: Heidy Paris, ERWIN)1332 (MAY Hold - Provider: Admin Adt - Reason: Transfer to a Procedural area)1548 ([facility] Unhold - Provider: Admin Adt) 0855 (Given - Provider: Heidy Paris, ERWIN) 0930 (Given - Provider: Heidy Paris, ERWIN) DULoxetine DR (Cymbalta) capsule 60 mg 60 mg, Oral, DAILY, First dose on Wed06/15/23 at 0900, Until Discontinued, Routine 0853 (Given - Provider: Heidy Paris, ERWIN)1332 ([facility] Hold - Provider: Admin Adt - Reason: Transfer to a Procedural area)1548 ([facility] Unhold - Provider: Admin Adt) 0856 (Given - Provider: Heidy Paris, ERWIN) 0931 (Given - Provider: Heidy Paris RN) gabapentin (Neurontin) capsule 600 mg 600 mg, Oral, NIGHTLY, First dose on Wed06/15/23 at 0200, Until Discontinued, Routine 1332 ([facility] Hold - Provider: Admin Adt - Reason: Transfer to a Procedural area)1548 ([facility] Unhold - Provider: Admin Adt)2136 (Given - Provider: Lorena Torres, ERWIN) 2115 (Given - Provider: Machelle Busch RN) lidocaine (Lidoderm) 5% patch 1 patch 1 patch, Transdermal, Administer over 12 Hours, EVERY 24 HOURS, First dose (after last modification) on Wed07/04/23 at 1000, Until Discontinued, Apply patch(es) for 12 hours, and then remove for 12 hours.for right lower back, Routine 1000 (Not Given - Provider: Heidy Paris RN - Reason: Patient/family refused)1332 ([facility] Hold - Provider: Admin Adt - Reason: Transfer to a Procedural area)1548 ([facility] Unhold - Provider: Admin Adt) 1000 (Not Given - Provider: Heidy Paris RN - Reason: Patient/family refused) 1000 (Not Given - Provider: Heidy Paris RN - Reason: Patient/family refused) melatonin tablet 6 mg 6 mg, Oral, NIGHTLY, First dose on Wed06/15/23 at 0200, Until Discontinued 1332 (MAY Hold - Provider: Admin Adt - Reason: Transfer to a Procedural area)1548 (MAY Unhold - Provider: Admin Adt)2136 (Given - Provider: Lorena Torres RN) 2116 (Given - Provider: Machelle Busch RN) metoprolol succinate XL (Toprol-XL) tablet 12.5 mg 12.5 mg, Oral, DAILY, First dose on Wed06/21/23 at 0900, Until Discontinued, DO NOT CRUSH OR OPEN Hold for HR <55 and Sbp <90, Routine 0854 (Given - Provider: Heidy Paris RN)1332 ([facility] Hold - Provider: Admin Adt - Reason: Transfer to a Procedural area)1548 ([facility] Unhold - Provider: Admin Adt) 0900 (Not Given - Provider: Heidy Paris RN - Reason: Order parameters not met) 0930 (Given - Provider: Heidy Paris RN) pantoprazole EC (Protonix) tablet 40 mg 40 mg, Oral, DAILY, First dose on Wed06/15/23 at 0900, Until Discontinued 0854 (Given - Provider: Heidy Paris RN)1332 ([facility] Hold - Provider: Admin Adt - Reason: Transfer to a Procedural area)1548 ([facility] Unhold - Provider: Admin Adt) [...] Heidy Paris RN - Reason: Patient/family refused)1332 ([facility] Hold - Provider: Admin Adt - Reason: Transfer to a Procedural area)1548 ([facility] Unhold - Provider: Admin Adt) [...] crush, chew, or suck on tablet., Routine 2216 (Given - Provider: Machelle Busch RN) ranolazine ER (Ranexa) tablet 1,000 mg 1,000 mg, Oral, 2 TIMES DAILY, First dose (after last modification) on Wed06/24/23 at 2100, Until Discontinued, DO NOT CRUSH OR OPEN. Baseline EKG required before administration., Routine, Has baseline EKG been obtained? Yes 0853 (Given - Provider: Heidy Paris RN)1332 ([facility] Hold - Provider: Admin Adt - Reason: Transfer to a Procedural area)1548 ([facility] Unhold - Provider: Admin Adt)2136 (Given - Provider: Lorena Torres RN) 0856 (Given - Provider: Heidy Paris RN)2117 (Given - Provider: Machelle Busch RN) 0938 (Given - Provider: Heidy Paris RN) rimegepant (Nurtec ODT) Tablet, Rapid Dissolve 75 mg 75 mg, Oral, EVERY 48 HOURS, First dose (after last modification) on Wed06/23/23 at 1000, Until Discontinued 1000 (Not Given - Provider: Heidy Paris RN - Reason: Patient/family refused)1332 ([facility] Hold - Provider: Admin Adt - Reason: Transfer to a Procedural area)1548 ([facility] Unhold - Provider: Admin Adt) 1000 (Not Given - Provider: Heidy Paris RN - Reason: Patient/family refused) rOPINIRole (Requip) tablet 2 mg 2 mg, Oral, 2 TIMES DAILY, First dose on Wed06/15/23 at 0245, Until Discontinued, Routine 0853 (Given - Provider: Heidy Paris RN)1332 (MAY Hold - Provider: Admin Adt - Reason: Transfer to a Procedural area)1548 ([facility] Unhold - Provider: Admin Adt)2137 (Given - Provider: Lorena Torres RN) 0856 (Given - Provider: Heidy Paris RN)211 (Given - Provider: Machelle Busch RN) 0931 (Given - Provider: Heidy Paris RN) senna-docusate (Pericolace) 8.6-50 mg per tablet 2 tablet 2 tablet, Oral, 2 TIMES DAILY, First dose on Wed06/17/23 at 1100, Until Discontinued, Routine 0900 (Not Given - Provider: Heidy Paris RN - Reason: Patient/family refused)1332 ([facility] Hold - Provider: Admin Adt - Reason: Transfer to a Procedural area)1548 ([facility] Unhold - Provider: Admin Adt)2100 (Not Given - Provider: Lorena Torres RN - Reason: Contraindicated) 0900 (Not Given [...] 0859 (Given - Provider: Heidy Paris RN)1332 ([facility] Hold - Provider: Admin Adt - Reason: Transfer to a Procedural area)1548 ([facility] Unhold - Provider: Admin Adt)2100 (Not Given - Provider: Lorena Torres RN - Reason: Contraindicated) 0859 (Given - Provider: Heidy Paris RN)2116 (Given - Provider: Machelle Busch RN) 0937 (Given - Provider: Heidy Paris RN) spironolactone (Aldactone) tablet 25 mg 25 mg, Oral, DAILY, First dose on Wed06/15/23 at 0900, Until Discontinued, DO NOT SPLIT, CRUSH OR OPEN, Routine 0853 (Given - Provider: Heidy Paris, ERWIN)1332 (MAY Hold - Provider: Admin Adt - Reason: Transfer to a Procedural area)1548 (MAY Unhold - Provider: Admin Adt) 0856 (Given - Provider: Heidy Paris, ERWIN) 0931 (Given - Provider: Heidy Paris RN) topiramate (Topamax) tablet 100 mg 100 mg, Oral, NIGHTLY, First dose on Wed06/15/23 at 2100, Until Discontinued, Routine 1332 (MAY Hold - Provider: Admin Adt - Reason: Transfer to a Procedural area)1548 (MAY Unhold - Provider: Admin Adt)2137 (Given - Provider: Lorena Torres RN) 211 (Given - Provider: Machelle Busch RN) Continuous Medication Order 07/07/2023 07/08/2023 07/09/2023 heparin (porcine) 50 units/mL in dextrose 5% [...] Bailey Green RN)1300 (Stopped - Provider: Heidy Paris RN)1332 (MAR Hold - Provider: Admin Adt - Reason: Transfer to a Procedural area)1548 (MAR Unhold - Provider: Admin Adt)1815 (Restarted - Provider: Heidy Paris RN - Comment: per MD order to restart after procedure) 0103 (Rate/Dose Change - Provider: Lorena Torres RN)0802 (New Bag - Provider: Heidy Paris RN)2121 (Rate/Dose Verify - Provider: Machelle Busch RN) 0334 (Rate/Dose Verify - Provider: Machelle Busch RN - Comment: ufh 0.52)0635 (New Bag - Provider: aMchelle Busch RN)1500 (Stopped - Provider: Heidy Paris RN) lactated ringers infusion (CANCELED) 100 mL/hr, Intravenous, CONTINUOUS, Starting on Wed07/07/23 at 1415, Until Wed07/07/23 at 1548, Endoscopy (Intra-Procedure) 1410 (New Bag - Provider: Gisel Boyer RN) PRN Medication Order 07/07/2023 07/08/2023 07/09/2023 acetaminophen (Tylenol) tablet 650 mg 650 mg, Oral, EVERY 6 HOURS PRN, Starting on Wed07/05/23 at 1522, Until Wed07/09/23 at 1844, Pain, Maximum dose of acetaminophen is 4,000 mg from all sources in 24 hours. When ordered for pain, acetaminophen should be given even when other ordered pain medications are indicated., Routine 1332 ([facility] Hold - Provider: Admin Adt - Reason: Transfer to a Procedural area)1548 ([facility] Unhold - Provider: Admin Adt) albuteroL (Proventil, Ventolin) (2.5 mg/3 mL) (0.083 %) nebulizer solution 2.5 mg 2.5 mg, Nebulization, EVERY 4 HOURS PRN, Starting on Wed07/04/23 at 0857, Until Wed07/09/23 at 1844, Wheezing, Routine 1332 ([facility] Hold - Provider: Admin Adt - Reason: Transfer to a Procedural area)1548 ([facility] Unhold - Provider: Admin Adt) lidocaine (Xylocaine) 1% (10 mg/mL) injection 3 mg 3 mg (0.3 mL), Subcutaneous, ONCE PRN, 1 dose, Starting on Wed06/15/23 at 0146, Until Wed07/09/23 at 1844, for discomfort with PIV insertion, Routine 1332 ([facility] Hold - Provider: Admin Adt - Reason: Transfer to a Procedural area)1548 ([facility] Unhold - Provider: Admin Adt) loratadine (Claritin) tablet 10 mg 10 mg, Oral, DAILY PRN, Starting on Wed06/15/23 at 0146, Until Wed07/09/23 at 1844, allergies, Routine 1332 ([facility] Hold - Provider: Admin Adt - Reason: Transfer to a Procedural area)1548 ([facility] Unhold - Provider: Admin Adt) nitroGLYcerin (Nitrostat) disintegrating tablet 0.4 mg 0.4 mg, Sublingual, EVERY 5 MIN PRN, Starting on Wed06/22/23 at 1119, Until Wed07/09/23 at 1844, Chest pain, SL nitroglycerin may be repeated every 5 minutes as needed up to 3 doses, Routine 1332 ([facility] Hold - Provider: Admin Adt - Reason: Transfer to a Procedural area)1548 ([facility] Unhold - Provider: Admin Adt) 0951 (Given - Provider: Heidy Paris, ERWIN) ondansetron (pf) (Zofran) (2 mg/mL) injection 4 mg 4 mg, Intravenous, EVERY 8 HOURS PRN, Starting on Wed06/29/23 at 1449, Until Wed07/09/23 at 1844, Nausea 1332 ([facility] Hold - Provider: Admin Adt - Reason: Transfer to a Procedural area)1548 ([facility] Unhold - Provider: Admin Adt)2137 (Given - Provider: Lorena Torres, ERWIN) 1008 (Given - Provider: Heidy Paris, ERWIN) 1140 (Given - Provider: Heidy Paris RN) oxyCODONE-acetaminophen (Percocet) 5-325 mg per tablet 1 tablet 1 tablet, Oral, EVERY 6 HOURS PRN, Starting on Wed07/06/23 at 1020, Until Wed07/09/23 at 1844, Pain, for pain refractory to PRN acetaminophen, Maximum dose of acetaminophen is 4000 mg from all sources in 24 hours., Routine 1332 ([facility] Hold - Provider: Admin Adt - Reason: Transfer to a Procedural area)1548 ([facility] Unhold - Provider: Admin Adt)2137 (Given - Provider: Lorena Torres, ERWIN) 0855 (Given - Provider: Heidy Paris RN)2120 (Given - Provider: Machelle Busch RN) simethicone (Gas-X Chew) 80 mg chewable tablet 80 mg 80 mg, Oral, EVERY 6 HOURS PRN, Starting on Wed06/20/23 at 0941, Until Wed07/09/23 at 1844, Cramping, Routine 1332 ([facility] Hold - Provider: Admin Adt - Reason: Transfer to a Procedural area)1548 (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
--- OUTSIDE RECORDS SUMMARY | 2023-09-20 14:33 | XMS_ITS | Encounter Summary ---
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 Referral ID Status Reason Start Date Expiration Date Visits Re quested Visits Authorized [id number] 1 1 Encounter Details Date Type Department Care Team (Latest Contact Info) Description 07/02/2023 10:10 AM EDT - 07/02/2023 11:59 PM EDT Hospital [place] [address] Discharge Disposition: Home Social History Tobacco Use Types Packs/Day Years Used Date Smoking Tobacco: Never Smokeless Tobacco: Never Alcohol Use Standard Drinks/Week Comments Never 0 (1 standard drink = 0.6 oz pur e alcohol) [facility] Utilities Answer Date Recorded In the past 12 months has [employer] electric, gas, oil, or water company threatened [...] Yes 06/15/2023 Housing Stability Vital Sign Answer Mitcehll e Recorded In the last 12 months, [...] place to sleep or slept in a halfway (including now)? No 06/15/2023 DH IPV Inpatient [...] Sign Reading Time Taken Comments Blood Pressure 106/56 07/02/2023 2:30 PM EDT Pulse 54 07/02/2023 1:25 PM EDT Temperature 36.1 ??C (97 ??F) 07/02/2023 1:35 PM EDT Respiratory Rate 14 07/02/2023 1:35 PM EDT Oxygen Saturation 95% 07/02/2023 2:30 PM EDT Inhaled Oxygen Concentration - - Weight - - Height - - Body Mass Index - - documented in this encounter Discharge Instructions * Discharge Instructions* Deborah Ely RN - 07/02/2023 1:15 PM EDT documented in this encounter Medications [...] as needed. fluticasone propionate (FLONASE) 50 mcg/actuation [place], Suspension 1 spray by Each Nare route [...] by mouth 2 times daily. 05/10/2023 07/12/2023 atorvastatin (Lipitor) 40 mg tablet Take 1 tablet by mouth every evening. 90 tablet 3 04/22/2023 07/09/2023 amLODIPine (Norvasc) 2.5 mg tablet Take 1 tablet by mouth daily. 90 tablet 3 04/23/2023 09/10/2023 omeprazole (PriLOSEC) 20 mg Capsule, Delayed Release(E.C.) Take 20 mg by mouth daily. Infrequent use 01/27/2022 08/25/2023 documented as of this encounter Progress Notes * Henrietta Judge MD - 07/02/2023 11:41 AM EDT Pre-VIR Progress Note Patient will proceed with mesenteric stent, other procedures as indicated today. Risks, benefits, and alternatives have been discussed and the patient is agreeable with proceeding. NPO since midnight. full code ordered. Henrietta Judge MD Vascular Surgery Pager: [phone] 07/02/23 ASA: 3 Mal: 3 Cr: Lab Results Component Value Date CREATININE 1.21 (H) 07/02/2023 * Deborah Ely RN - 07/02/2023 10:56 AM EDT ANGIO NURSING DATABASE Name: Indira Roque Date of : 1970 AGE: 53 y.o. Address: [address] [place] [phone] (home) [phone] (work) Mobile: Telephone Information: Referring Provider: Pat Knight REASON FOR VISIT: Mesenteric angiogram Order Questions Answers Access Site? Right common femoral Reason for exam and clinical history: SMA stenosis Is the patient on anticoagulant / antiplatelet therapy ? Heparin,Aspirin Is the patient ? No No data recorded Allergies Allergen Reactions Codeine Other (See Comments) Per pt it causes severe jittery and uncomfortable feeling Acetaminophen Other (See Comments) Makes her jittery, feel weird and cause swelling in upper/lower extremities Clobetasol Rash Other reaction(s): Skin Rash Pertinent PMH: Patient Active Problem List Diagnosis Code Asthma [...] R20.2 NSTEMI (non-ST elevated myocardial infarction) I21.4 Date/Procedure Meds Given/Comments 07/02/23 VS Mesenteric Angiogram w/Stenting and angioplasty Fentanyl 75 mcg/IV, Versed 1.5 mg/IV; heparin 10,000 units IV; Ancef 2 grams 11:29 to procedure room IR3 via stretcher. Onto table supine. All monitors, O2, safety strap in place. Meds per protocol. Arterial Puncture Post Procedure Time of Arterial Puncture: 1225 Site: Right groin Right Groin Closure device used: Pro Coleharbor Time sheath removed: 13:12 Time of hemostasis: 13:20 Hematoma present?: no Anticipated up time: 1520 Laboratory Results: Lab Results Component Value Date INR 1.1 06/15/2023 Lab Results Component Value Date CREATININE 1.21 (H) 07/02/2023 Lab Results Component Value Date K 4.1 07/02/2023 Lab Results Component Value Date PLATELET 200 07/02/2023 * Jo Ann Bsihop RN - 06/29/2023 8:58 AM EDT ANGIO NURSING DATABASE Name: Indira Roque Date of : 1970 AGE: 53 y.o. Address: [address] [place] [address] (home) [phone] (work) Mobile: Telephone Information: Referring Provider: Pat Knight REASON FOR VISIT: Order Questions Answers Access Site? Right common femoral Reason for exam and clinical history: SMA stenosis Is the patient on anticoagulant / antiplatelet therapy ? Heparin,Aspirin Is the patient ? No No data recorded Allergies Allergen Reactions Codeine Other (See Comments) Per pt it causes severe jittery and uncomfortable feeling Acetaminophen Other (See Comments) Makes her jittery, feel weird and cause swelling in upper/lower extremities Clobetasol Rash Other reaction(s): Skin Rash Pertinent PMH: Patient Active Problem List Diagnosis Code Asthma [...] R20.2 NSTEMI (non-ST elevated myocardial infarction) I21.4 Date/Procedure Meds Given/Comments None prior Arterial Puncture Post Procedure Time of Arterial Puncture: Site: Closure device used: Time sheath removed: Time of hemostasis: Hematoma present?: Anticipated up time: Laboratory Results: Lab Results Component Value Date INR 1.1 06/15/2023 Lab Results Component Value Date CREATININE 1.17 06/29/2023 Lab Results Component Value Date K 3.9 06/29/2023 Lab Results Component Value Date PLATELET 237 06/29/2023 documented in this encounter Plan of Treatment Upcoming Encounters Date Type Department Care Team (Late st Contact Info) Description 10/08/2023 8:30 AM EDT Tech [place] [address] Jose Cook 10/08/2023 9:30 AM EDT Office Visit Vascular Surgery at [place] [phone] MD [facility] [place] [address] 10/21/2023 10:30 AM EDT Appointment Nuclear Medicine at [address] Mary Reyes [facility] [place] [address] 10/21/2023 11:30 AM EDT Appointment Nuclear Medicine at [address] Mary Reyes [facility] [place] [address] 10/21/2023 12:30 PM EDT Appointment Nuclear Medicine at [place] [address] Mary Reyes [facility] [place] [address] 10/21/2023 1:30 PM EDT Appointment Nuclear Medicine at [place] [phone] Mary Reyes [facility] [address] 10/21/2023 2:30 PM EDT Appointment Nuclear Medicine at [place] [phone] Mary Reyes [facility] [address] 10/26/2023 4:00 PM EDT Office Visit Cardiology at [address] [phone] Jaspreet Kinsey MD [facility] [place] [address] 10/28/2023 9:00 AM EDT Office [place] [address] 10/29/2023 10:00 AM EDT Clinical [place] [address] 10/29/2023 10:15 AM EDT Procedure [place] [address] 11/01/2023 5:00 PM EDT Office Visit [place] [phone] Selene Browning, PhD [facility] [place] [address] 11/22/2023 4:40 PM EDT Office Visit Cardiology at [address] [phone] Porsha Mcdaniels MD [facility] [place] [address] 12/13/2023 10:00 AM EDT Clinical Support [place] [address] [facility] [place] [address] documented as of this encounter Procedures Procedure Name Priority Date/Time Associated Diagnosis Comments VS ARTERIOGRAM MESENTERIC VASCULAR SURGERY Routine 07/02/2023 1:32 PM EDT documented in this encounter Visit Diagnoses Not on filedocumented in this encounter Administered Medications Inactive Administered Medications - up to 3 most recent administrations Medication Order MAR Action Action Date Dose Rate Site ceFAZolin (Ancef) 2 g vial attach to sodium chloride 0.9% 100 mL Mini-Bag Plus 2 g, Intravenous, ONCE, 1 dose, On Wed07/02/23 at 1130, Administer over 30 Minutes, Redose every 4 hours if CrCl is greater than 20 mL/min. Redose every 8 hours if CrCl is less than 20 mL/min., Angio/IR (Day of Procedure), Indication for (Active or Suspected): Prophylaxis New Bag 07/02/2023 11:30 AM EDT 2 g 200 mL/hr fentaNYL (pf) (50 mcg/mL) multi-dose injection 25-50 mcg 25-50 mcg, Intravenous, EVERY 3 MIN PRN, Starting on Wed07/02/23 at 1114, Until Wed07/02/23 at 1447, Pain, per unit protocol, For use in Interventional Radiology (IR) only for procedural sedation with direct provider supervision and verbal order. - Start dose: 50 mcg (reduce dose to 25 mcg if history of sedation sensitivity). - Titration dose: 25-50 mcg IV, (based on patient response) every 3 minutes PRN to maintain procedural pain less than 2 per Pain Scale. Maximum dose: 50 mcg/dose, 250 mcg/hour, Angio/IR (Intra-Procedure), Routine Given 07/02/2023 12:46 PM EDT 25 mcg Given 07/02/2023 12:12 PM EDT 50 mcg iodixanoL (Visipaque) (320 mg/mL) injection solution 1-400 mL 1-400 mL, Intra-arterial, ONCE, 1 dose, On Wed07/02/23 at 1130, For intra-procedural use by proceduralist., Angio/IR (Intra-Procedure), Routine Given 07/02/2023 11:30 AM EDT 65 mLs midazolam (pf) (Versed) (1 mg/mL) multi-dose injection 0.5-1 mg 0.5-1 mg, Intravenous, EVERY 3 MIN PRN, Starting on Wed07/02/23 at 1114, Until Wed07/02/23 at 1447, Sedation, For use in Interventional Radiology (IR) only for procedural sedation with direct provider supervision and verbal order. - Start dose: 1 mg (Reduce dose to 0.5 mg if history of sedation sensitivity). - Titration dose: 0.5 mg - 1 mg (based on patient response) every 3 minutes PRN to obtain RASS score of -3. Maximum dose: 1 mg/dose, 5 mg/hour., Angio/IR (Intra-Procedure), Routine Given 07/02/2023 12:46 PM EDT 0.5 mg Given 07/02/2023 12:12 PM EDT 1 mg documented in this encounter Care Teams Mail Processing Equipment Mechanic Relationship Specialty Start Date End Date Polo Pearce PA [address] [place] [address] PCP - General Internal Medicine 06/09/21 documented as of this encounter
--- OUTSIDE RECORDS SUMMARY | 2023-09-20 14:34 | XMS_ITS | Encounter Summary ---
[place] [address] Care Team Providers Care Employment Programs Analyst Name Role Phone Polo Pearce Primary Care Provider [phone] Reason for Visit * Diagnostic Test (Routine) - Closed Specialty Diagnoses / Procedures Referred By Jayant harris Referred To Contact Radiology Diagnoses Chest pain, unspecified type Procedures NM PET CT Cardiac Sarcoid Maegan Mike [facility] [place] [address] [place] [address] Referral ID Status Reason Start Date Expiration Date V isits Requested Visits Authorized [id number] Closed Specialty Service Requested 04/22/2023 10/20/2024 4 4 Encounter Details Date Type Department Care Team (Latest Contact Info) Description 04/30/2023 11:02 AM EST - 04/30/2023 11:04 AM [facility] Hospital Encounter [place] [address] Maegan Mike [facility] [place] [address] Discharge Disposition: Home Social History Tobacco Use Types Packs/Day Years Used Date Smoking Tobacco: Never Smokeless Tobacco: Never Alcohol Use Standard Drinks/Week Comments Never 0 (1 standard drink = 0.6 oz pur e alcohol) [facility] Utilities Answer Date Recorded In the past 12 months has th e electric, gas, oil, or water company threatened to shut off services in your home? Yes 04/19/2023 Hunger Vital Sign Answer Date Recorded Within the past 12 months, y ou worried that your food would run out before you got the money to buy more. Never true Within the past 12 months, t he food you bought just didn't last and you didn't have money to get more. Sometimes true 02/2024 PRAPARE - Transportation Answer Date Re corded In the past 12 months, has l ack of transportation kept you from medical appointments or from getting medications? Yes 04/08 In the past 12 months, has l ack of transportation kept you from meetings, work, or from getting things needed for daily living? Yes 04/19/2023 Housing Stability Vital Sign Answer Mitchell e Recorded In the last 12 months, was t here a time when you were not able to pay the mortgage or rent on time? Yes 04/19/2023 In the last 12 months, how many places have you lived? 1 04/19/2023 In the last 12 months, was t here a time when you did not have a steady place to sleep or slept in a penitentiary (including now)? No 04/19/2023 DH IPV Inpatient Questions Answer Date Recorded Does Anyone Try to Keep You From Having Contact with Others or Doing Things Outside Your Home? no 04/17/2023 Feels Threatened by Someone no 04/08 Feels Unsafe at Home or Work/School no 04/17/2023 Physical Signs of Abuse Present no 04/17/2023 Sex and Gender Information Value Date Recorded Sex Assigned at Not on file Gender Identity Not on file Sexual Orientation Not on file documented as of this encounter Medications at Time of Discharge Medication Sig Dispensed Refills Start Date End Date nitroGLYcerin (Nitrostat) 0.[address] [...] nightly as needed. 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 90 tablet 1 06/11/2021 rOPINIRole (Requip) 1 mg Tablet Take 2 mg by mouth 2 times daily. 07/16/2020 loratadine (Claritin) 10 mg Tablet Take 10 mg by mouth daily as needed. fluticasone propionate (FLONASE) 50 mcg/actuation [place], Suspension 1 spray by Each Nare route [...] 4 hours as needed. Use with spacer atorvastatin (Lipitor) 40 mg tablet Take 1 tablet by mouth every evening. 90 tablet 3 04/22/2023 07/09/2023 amLODIPine (Norvasc) 2.5 mg tablet Take 1 tablet by mouth daily. 90 tablet 3 04/23/2023 09/10/2023 torsemide (Demadex) 20 mg tablet Take 1 tablet by mouth daily. 90 tablet 3 02/12/2023 05/10/2023 omeprazole (PriLOSEC) 20 mg Capsule, Delayed Release(E.C.) Take 20 mg by mouth daily. Infrequent use 01/27/2022 08/25/2023 prochlorperazine (Compazine) 5 mg tablet Take 5 mg by mouth every 6 hours as needed for Nausea. 05/10/2023 documented as of this encounter Plan of Treatment Upcoming Encounters Date Type Department Care Team (Late st Contact Info) Description 10/08/2023 8:30 AM EDT Tech [place] [phone] Jose Cook 10/08/2023 9:30 AM EDT Office Visit Vascular Surgery at [place] [phone] MD [facility] [place] [address] 10/21/2023 10:30 AM EDT Appointment Nuclear Medicine at [address] Reyes, [facility] [place] [address] 10/21/2023 11:30 AM EDT Appointment Nuclear Medicine at [address] Mary Reyes, [facility] [place] [address] 10/21/2023 12:30 PM EDT Appointment Nuclear Medicine at [place] [phone] Mary Reyes [facility] [place] [address] 10/21/2023 1:30 PM EDT Appointment Nuclear Medicine at [place] [phone] Mary Reyes [facility] [place] [address] 10/21/2023 2:30 PM EDT Appointment [place] [address] Mary Reyes [facility] [place] [address] 10/26/2023 4:00 PM EDT Office Visit Cardiology at [address] [phone] Jaspreet Kinsey MD [facility] [place] [address] 10/28/2023 9:00 AM EDT [place] [address] 10/29/2023 10:00 AM EDT Clinical [place] [address] 10/29/2023 10:15 AM EDT Procedure [place] [address] 11/01/2023 5:00 PM EDT Office [place] [phone] Selene Browning, PhD [facility] [place] [address] 11/22/2023 4:40 PM EDT Office Visit Cardiology at [address] [phone] Porsha Mcdaniels MD [facility] [place] [address] 12/13/2023 10:00 AM EDT Clinical [place] [address] [facility] [place] [address] documented as of this encounter Procedures Procedure Name Priority Date/Time Associated Diagnosis Comments NM PET CT CARDIAC SARCOID Routine 04/30/2023 1:45 PM EST Chest pain, unspecified type documented in this encounter Results * NM PET CT Cardiac Sarcoid (04/30/2023 1:45 PM EST) Anatomical Region Laterality Modality Nuclear Medicine Impressions 05/06/2023 11:09 AM EST 1. ??Severe rest perfusion defect in the basal to distal anterior wall extending into the distal anteroseptal wall and anterior apex, with no visible FDG uptake in this area. Findings is consistent with myocardial scar. 2. ??No evidence of active myocardial inflammation. Thank you for letting us participate in the care of this patient. ??If you are a health care provider and have any questions regarding this report, please contact the number below. ??For patients who have questions please contact the health insurance healthcare consultant that requested 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 ? 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 Following IV administration of 26.5 mCi technetium 99m sestamibi, SPECT-CT of the heart was obtained. Following IV injection of 8.8 mCi 19-atwdqw-1-deoxyglucose (FDG) and a standard uptake of approximately 60 minutes, a noncontrast CT scan followed by a PET scan were acquired from the base of the skull to mid thighs. The PET scan acquisition included a dedicated cardiac sarcoid protocol with a scan speed of 0.7 mm/sec over the heart and 1.2 mm/sec over the remainder of the body. The noncontrast CT was used for anatomic localization and photon attenuation correction of the PET scan. Blood glucose level: 79 (mg/dL) COMPARISON: Cardiac MR 04/21/2023 FINDINGS: REST MYOCARDIAL PERFUSION STUDY: Severe rest perfusion defect in the basal to distal anterior wall extending into the distal anteroseptal wall and anterior apex. Gated study: Poor visualization of the anterior wall which appears mildly hypokinetic.? LVEF is 51% CARDIAC FINDINGS: No visible tracer uptake in the myocardium. EXTRACARDIAC FINDINGS: Normal activity in all regions of the neck, chest, and upper abdomen. No adenopathy and no suspicious pulmonary nodule. Multivessel coronary calcifications present. 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 Following IV administration of 26.5 mCi technetium 99m sestamibi, SPECT-CTof the heart was obtained. Following IV injection of 8.8 mCi 83-luzmvj-6-deoxyglucose (FDG) and astandard uptake of approximately 60 minutes, a noncontrast CT scan followed by aPET scan were acquired from the base of the skull to mid thighs. The PET scanacquisition included a dedicated cardiac sarcoid protocol with a scan speed of 0.7mm/sec over the heart and 1.2 mm/sec over the remainder of the body. Thenoncontrast CT was used for anatomic localization and photon attenuation correction ofthe PET scan. Blood glucose level: 79 (mg/dL) COMPARISON: Cardiac MR 04/21/2023 FINDINGS: REST MYOCARDIAL PERFUSION STUDY: Severe rest perfusion defect in the basal to distal anterior wallextending into the distal anteroseptal wall and anterior apex. Gated study: Poor visualization of the anterior wall which appearsmildly hypokinetic.? LVEF is 51% CARDIAC FINDINGS: No visible tracer uptake in the myocardium. EXTRACARDIAC FINDINGS: Normal activity in all regions of the neck, chest, and upper abdomen. No adenopathy and no suspicious pulmonary nodule. Multivessel coronary calcifications present. IMPRESSION 1. Severe rest perfusion defect in the basal to distal anterior wallextending into the distal anteroseptal wall and anterior apex, with no visible FDGuptake in this area. Findings is consistent with myocardial scar. 2. No evidence of active myocardial inflammation. Thank you for letting us participate in the care of this patient. If youare a health care provider and have any questions regarding this report,please contact the number below. For patients who have questions please contactthe health insurance healthcare consultant that requested 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 Maegan Mike BENCH WORKER BINDING IMG PET ORDERABLE S documented in this encounter Visit Diagnoses Not on filedocumented in this encounter Care Teams Employment Programs Analyst Relationship Specialty Start Date End Date Polo Pearce PA [address] [place] [address] PCP - General Internal Medicine 06/09/21 documented as of this encounter
--- OUTSIDE RECORDS SUMMARY | 2023-09-20 14:34 | XMS_ITS | Encounter Summary ---
Author Organization [facility] Address [facility] [place] [address] Care Team Providers Care Labor Economist Name Role Phone Polo Pearce Primary Care Provider [phone] Encounter Details Date Type Department Care Team (Latest Contact Info) Description 05/10/2023 Travel Social History Tobacco Use Types Packs/Day Years Used Date Smoking Tobacco: Never Smokeless Tobacco: Never Alcohol Use Standard Drinks/Week Comments Never 0 (1 standard drink = 0.6 oz pur e alcohol) [facility] Utilities Answer Date Recorded In [...] slept in a halfway (including now)? No 04/19/2023 [facility] Inpatient Questions Answer Date Recorded Does [...] AM EDT Tech [place] [address] Jose Cook 10/08/2023 9:30 AM EDT Office Visit [place] [address] MD [facility] [place] [place] [address] 10/21/2023 10:30 AM EDT Appointment [place] [address] Mary Reyes [facility] [place] [place] [address] 10/21/2023 11:30 AM EDT Appointment [place] [phone] Mary Reyes OPTICAL ENGINEERING TECHNICIAN [facility] [place] [address] 10/21/2023 12:30 PM EDT Appointment [place] [address] Mary Reyes, [facility] [place] [address] 10/21/2023 1:30 PM EDT Appointment [place] [address] Mary Reyes, [facility] [place] [address] 10/21/2023 2:30 PM EDT Appointment [place] [address] Mary Reyes, [facility] [place] [address] 10/26/2023 4:00 PM EDT Office Visit Cardiology at [address] [phone] Jaspreet Kinsey MD [facility] [place] [address] 10/28/2023 9:00 AM EDT Office [place] [address] 10/29/2023 10:00 AM EDT Clinical [place] [address] 10/29/2023 10:15 AM EDT Procedure [place] [address] 11/01/2023 5:00 PM EDT Office Visit [place] [address] Selene rBowning, PhD [facility] [place] [address] 11/22/2023 4:40 PM EDT Office Visit Cardiology at [address] [phone] Porsha Mcdaniels MD [facility] [place] [address] 12/13/2023 10:00 AM EDT Clinical Support [place] [phone] [facility] [place] [address] documented as of this encounter Visit Diagnoses Not on filedocumented in this encounter Care Teams Labor Economist Relationship Specialty Start Date End Date Polo Pearce PA [address] [place] [address] PCP - General Internal Medicine 06/09/21 documented as of this encounter
--- OUTSIDE RECORDS SUMMARY | 2023-09-20 14:34 | XMS_ITS | Encounter Summary ---
[place] [address] Care Team Providers Care Material Flow Analyst Name Role Phone Polo Pearce Primary Care Provider [phone] Reason for Referral * Diagnostic Test (Routine) - Closed Specialty Diagnoses / Procedures Referred By Jayant harris Referred To Contact Radiology Diagnoses Chest pain, unspecified type Procedures NM PET CT Cardiac Sarcoid Maegan Mike [facility] [place] [address] [place] [address] Referral ID Status Reason Start Date Expiration Date V isits Requested Visits Authorized [id number] Closed Specialty Service Requested 04/22/2023 10/20/2024 4 4 Reason for Visit * Diagnostic Test (Routine) - Closed Specialty Diagnoses / Procedures Referred By Jayant harris Referred To Contact Radiology Diagnoses Chest pain, unspecified type Procedures NM PET CT Cardiac Sarcoid Maegan Mike [facility] [place] [address] [place] [address] Referral ID Status Reason Start Date Expiration Date V isits Requested Visits Authorized [id number] Closed Specialty Service Requested 04/22/2023 10/20/2024 4 4 Encounter Details Date Type Department Care Team (Latest Contact Info) Description 04/30/2023 11:01 AM EST Hospital Encounter [place] [phone] Maegan Mike, [facility] [place] [address] Chest pain, unspecified type Discharge Disposition: Home Social History Tobacco Use Types Packs/Day Years Used Date Smoking Tobacco: Never Smokeless Tobacco: Never Alcohol Use Standard Drinks/Week Comments Never 0 (1 standard drink = 0.6 oz pur e alcohol) [facility] Utilities Answer Date Recorded In [...] place to sleep or slept in a mcc (including now)? No 04/19/2023 [facility] IPV Inpatient [...] nightly as needed. empagliflozin (Jardiance) 10 mg TabletIndications:Conditioner Tender neal heart failure with preserved ejection fraction Take 1 tablet by mouth daily. 90 tablet 1 06/11/2021 rOPINIRole (Requip) 1 mg Tablet Take 2 mg by mouth 2 times daily. 07/16/2020 loratadine (Claritin) 10 mg Tablet Take 10 mg by mouth daily as needed. fluticasone propionate (FLONASE) 50 mcg/actuation [place], Suspension 1 spray by Each Nare route [...] AM EDT Tech Visit [place] [phone] Jose Cook 10/08/2023 9:30 AM EDT Office [place] [phone] MD [facility] [place] [address] 10/21/2023 10:30 AM EDT Appointment [place] [phone] Mary Reyes [facility] [place] [address] 10/21/2023 11:30 AM EDT Appointment [place] [address] Mary Reyes [facility] [place] [address] 10/21/2023 12:30 PM EDT Appointment [place] [phone] Mary Reyes [facility] [place] [address] 10/21/2023 1:30 PM EDT Appointment [place] [phone] Mary Reyes [facility] [place] [address] 10/21/2023 2:30 PM EDT Appointment [place] [address] Mary Reyes [facility] [place] [address] 10/26/2023 4:00 PM EDT Office Visit Cardiology at [address] [phone] Jaspreet Kinsey MD [facility] [place] [address] 10/28/2023 9:00 AM EDT Office [place] [address] 10/29/2023 10:00 AM EDT Clinical [place] [address] 10/29/2023 10:15 AM EDT Procedure [place] [address] 11/01/2023 5:00 PM EDT Office [place] [address] Selene Browning, PhD [facility] [place] [address] 11/22/2023 4:40 PM EDT Office Visit Cardiology at [address] [address] Porsha Mcdaniels MD [facility] [place] [address] 12/13/2023 10:00 AM EDT Clinical [place] [address] [facility] [place] [address] documented as of this encounter Procedures Procedure Name Priority Date/Time Associated Diagnosis Comments NM PET CT CARDIAC SARCOID Routine 04/30/2023 1:45 PM EST Chest pain, unspecified type POCT GLUCOSE Routine 04/30/2023 12:19 PM EST documented in this encounter Results * NM [...] who have questions please contact the health child care provider that requested 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 ? 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 Following IV administration of 26.5 mCi technetium 99m sestamibi, SPECT-CT of the heart was obtained. Following IV injection of 8.8 mCi 55-yvbwke-5-deoxyglucose (FDG) and a standard uptake of approximately [...] obtained. Following IV injection of 8.8 mCi 38-jtyhbw-7-deoxyglucose (FDG) and astandard uptake of approximately 60 [...] patients who have questions please contactthe health child care provider that requested 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 Electronically signed by: Humberto Qureshi MD, [facility]([phone]), at 05/06/2023 11:09 AM Maegan Mike APRN IMG PET ORDERABLE S * POCT Glucose (04/30/2023 12:19 PM EST) POC Glucose 79 65 - 199 mg/dL [facility] Comment: Supplemental ranges: <140 mg/dL before meals <180 mg/dL all other times of the day Blood 04/30/2023 12:1 9 PM EST 04/30/2023 12:19 PM EST Maegan Mike APRN POINT OF CARE LYNETTE T ORDERABLES [facility] [place] [address] documented in this encounter Visit Diagnoses Diagnosis Chest pain, unspecified type documented in this encounter Administered Medications Inactive Administered Medications - up to 3 most recent administrations Medication Order MAR Action Action Date Dose Rate Site technetium (Tc-99m) sestamibi injection 0-30 mCi 0-30 mCi, Intravenous, 2 TIMES DAILY PRN, 2 doses, Starting on Wed04/30/23 at 1139, Until 05/01/23 at 0439, Per Protocol, Radiology Contrast, Routine Given 04/30/2023 11:35 AM EST 26.5 mCi Right Arm documented in this encounter Care Teams Material Flow Analyst Relationship Specialty Start Date End Date Polo Pearce PA [address] [place] [address] PCP - General Internal Medicine 06/09/21 documented as of this encounter
--- OUTSIDE RECORDS SUMMARY | 2023-09-20 14:34 | XMS_ITS | Encounter Summary ---
Author Organization [facility] Address [facility] [place] [address] Care Team Providers Care Crop Insurance Claims Adjuster Name Role Phone Polo Pearce Primary Care Provider [phone] Encounter Details Date Type Department Care Team (Latest Contact Info) Description 06/22/2023 Travel Social History Tobacco Use Types Packs/Day Years Used Date Smoking Tobacco: Never Smokeless Tobacco: Never Alcohol Use Standard Drinks/Week Comments Never 0 (1 standard drink = 0.6 oz pur e alcohol) [facility] Utilities Answer Date Recorded In the [...] a nursing home (including now)? No 06/15/2023 [facility] Inpatient Questions Answer Date Recorded [...] AM EDT Tech Visit [place] [address] Jose Cook 10/08/2023 9:30 AM EDT Office [place] [address] MD [facility] [place] [address] 10/21/2023 10:30 AM EDT Appointment [place] [address] Mary Reyes [facility] [place] [address] 10/21/2023 11:30 AM EDT Appointment [place] [phone] Mary Reyes COMMUNICATIONS MARKETING INTERN [facility] [place] [address] 10/21/2023 12:30 PM EDT Appointment [place] [address] Mary Reyes, [facility] [place] [address] 10/21/2023 1:30 PM EDT Appointment [place] [address] Mary Reyes, [facility] [place] [address] 10/21/2023 2:30 PM EDT Appointment [place] [address] Mary Reyes, [facility] [place] [address] 10/26/2023 4:00 PM EDT Office Visit Cardiology at [address] [phone] Jaspreet Kinsey MD [facility] [place] [address] 10/28/2023 9:00 AM EDT Office Visit [place] [address] 10/29/2023 10:00 AM EDT Clinical Support [place] [address] 10/29/2023 10:15 AM EDT Procedure visit [place]astro[place] [address] 11/01/2023 5:00 PM EDT Office [place] [address] Selnee Browning, PhD [facility] [place] [address] 11/22/2023 4:40 PM EDT Office Visit Cardiology at [address] [phone] Porsha Mcdaniels MD [facility] [place] [place] [address] 12/13/2023 10:00 AM EDT Clinical [place] [phone] [facility] [place] [address] documented as of this encounter Visit Diagnoses Not on filedocumented in this encounter Care Teams Crop Insurance Claims Adjuster Relationship Specialty Start Date End Date Polo Pearce PA [address] [place] [address] PCP - General Internal Medicine 06/09/21 documented as of this encounter
--- OUTSIDE RECORDS SUMMARY | 2023-09-20 14:34 | XMS_ITS | Encounter Summary ---
Author Organization [facility] Address [facility] [place] [address] Care Team Providers Care Dryland Farmer Name Role Phone Polo Pearce Primary Care Provider [phone] Encounter Details Date Type Department Care Team (Late st Contact Info) Description 05/28/2023 Telephone Cardiology at [address] [place] [address] Jaspreet Kinsey MD [facility] [place] [address] Social History Tobacco Use Types Packs/Day Years Used Date Smoking Tobacco: Never Smokeless Tobacco: Never Alcohol Use Standard Drinks/Week Comments Never 0 (1 standard drink = 0.6 oz pur e alcohol) [facility] Utilities Answer Date Recorded In the past 12 months has Anne Fogarty, gas, oil, or water [employer] threatened to shut off services in your [...] encounter Miscellaneous Notes * Telephone Encounter - Aide Glass - 06/04/2023 9:43 AM EDT Patient called about her labs. She said she is more active but her weight has gone up. Please call her @ [phone] * Telephone Encounter - Nilda Mayes, RN - 06/04/2023 9:41 AM EDT Next office visit is scheduled Date Visit Type Department Provider 09/22/2023 3:00 PM FOLLOW UP VISIT Cardiology at [place] Arrive at: [facility] [address] Lissa Kinsey * Telephone Encounter - Aide Glass - 05/28/2023 10:53 AM EDT Patient had labs done recently. She would like to know what Dr Kinsey thinks about them and what if anything she should be doing. Please call her @ [phone] . documented in this encounter Plan of Treatment Upcoming Encounters Date Type Department Care Team (Late st Contact Info) Description 10/08/2023 8:30 AM EDT Tech Visit Vascular Lab at [place] [phone] Jose Cook 10/08/2023 9:30 AM EDT Office Visit Vascular Surgery at [place] [phone] MD [facility] [place] [address] 10/21/2023 10:30 AM EDT Appointment Nuclear Medicine at [place] [phone] [facility] [place] [address] 10/21/2023 11:30 AM EDT Appointment Nuclear Medicine at [place] [phone] [facility] [place] [address] 10/21/2023 12:30 PM EDT Appointment [place] [address] [address] [facility] [place] [address] 10/21/2023 1:30 PM EDT Appointment [place] [address]-[address] [facility] [place] [address] 10/21/2023 2:30 PM EDT Appointment [place] [address] Mary Reyes APRN [facility] [place] [address] 10/26/2023 4:00 PM EDT Office Visit Cardiology at [address] [phone] Jaspreet Kinsey MD [facility] [place] [address] 10/28/2023 9:00 AM EDT Office [place] [address] 10/29/2023 10:00 AM EDT Clinical Support [place] [address] 10/29/2023 10:15 AM EDT Procedure [place] [address] 11/01/2023 5:00 PM EDT Office Visit Gastroenterology at [place] [phone] Selene Browning, PhD [facility] [place] [address] 11/22/2023 4:40 PM EDT Office Visit Cardiology at [address] [phone] Porsha Mcdaniels MD [facility] [place] [place] [address] 12/13/2023 10:00 AM EDT Clinical Support [place] [phone] Lucero Romero, [facility] [place] [address] documented as of this encounter Visit Diagnoses Not on filedocumented in this encounter Care Teams Dryland Farmer Relationship Specialty Start Date End Date Polo Pearce PA [address] [place] [address] PCP - General Internal Medicine 06/09/21 documented as of this encounter
--- OUTSIDE RECORDS SUMMARY | 2023-09-20 14:34 | XMS_ITS | Encounter Summary ---
[place] [address] Care Team Providers Care Founder And Chief Executive Officer Name Role Phone Polo Pearce Primary Care Provider [phone] Reason for Visit * Diagnostic Test (Routine) - Closed Specialty Diagnoses / Procedures Referred By Jayant harris Referred To Contact Radiology Diagnoses Chest pain, unspecified type Procedures NM PET CT Cardiac Sarcoid Maegan Mike [facility] [place] [address] [place] [address] Referral ID Status Reason Start Date Expiration Date V isits Requested Visits Authorized [id number] Closed Specialty Service Requested 04/22/2023 10/20/2024 4 4 Encounter Details Date Type Department Care Team (Latest Contact Info) Description 04/30/2023 11:05 AM EST - 04/30/2023 11:59 PM [facility] Hospital En[place] [address] Maegan Mike [facility] [place] [address] Discharge Disposition: Home Social History Tobacco Use Types Packs/Day Years Used Date Smoking Tobacco: Never Smokeless Tobacco: Never Alcohol Use Standard Drinks/Week Comments Never 0 (1 standard drink = 0.6 oz pur e alcohol) [facility] Utilities Answer Date Recorded In the [...] place to sleep or slept in a intermediate (including now)? No 04/19/2023 [facility] IPV Inpatient [...] nightly as needed. empagliflozin (Jardiance) 10 mg TabletIndications:Mortgage Loan Assistant neal heart failure with preserved ejection fraction Take 1 tablet by mouth daily. 90 tablet 1 06/11/2021 rOPINIRole (Requip) 1 mg Tablet Take 2 mg by mouth 2 times daily. 07/16/2020 loratadine (Claritin) 10 mg Tablet Take 10 mg by mouth daily as needed. fluticasone propionate (FLONASE) 50 mcg/actuation [place], Suspension 1 spray by Each Nare route [...] AM EDT Tech [place] [address] Jose Cook 10/08/2023 9:30 AM EDT Office Visit Vascular Surgery at [place] [phone] MD [facility] [place] [address] 10/21/2023 10:30 AM EDT Appointment Nuclear Medicine at [address] Mary Reyes, [facility] [place] [address] 10/21/2023 11:30 AM EDT Appointment Nuclear Medicine at [address] Mary Reyes, [facility] [place] [address] 10/21/2023 12:30 PM EDT Appointment Nuclear Medicine at [place] [phone] Mary Reyes [facility] [place] [address] 10/21/2023 1:30 PM EDT Appointment Nuclear Medicine at [place] [phone] Mary Reyes [facility] [place] [address] 10/21/2023 2:30 PM EDT Appointment [place] [address] Mary Reyes [facility] [place] [address] 10/26/2023 4:00 PM EDT Office Visit Cardiology at [address] [phone] Jaspreet Kinsey MD [facility] [place] [address] 10/28/2023 9:00 AM EDT Office [place] [address] 10/29/2023 10:00 AM EDT Clinical [place] [address] 10/29/2023 10:15 AM EDT Procedure [place] [address] 11/01/2023 5:00 PM EDT Office [place] [phone] Selene Browning, PhD [facility] [place] [address] 11/22/2023 4:40 PM EDT Office Visit Cardiology at [address] [phone] Porsha Mcdaniels MD [facility] [place] [address] 12/13/2023 10:00 AM EDT Clinical [place] [address] [facility] [place] [address] documented as of this encounter Procedures Procedure [...] who have questions please contact the health care consultant that requested 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 ? Electronically signed by: Humberto Qureshi MD, [facility] ([phone]), at 05/06/2023 11:09 AM Narrative 05/06/2023 11:09 AM EST EXAMINATION: NM PET CT CARDIAC SARCOID CLINICAL HISTORY: 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 Following IV administration of 26.5 mCi technetium 99m sestamibi, SPECT-CT of the heart was obtained. Following IV injection of 8.8 mCi 82-polxhy-3-deoxyglucose (FDG) and a standard uptake of approximately [...] obtained. Following IV injection of 8.8 mCi 61-iedvdc-8-deoxyglucose (FDG) and astandard uptake of approximately 60 [...] patients who have questions please contactthe health care consultant that requested 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 Electronically signed by: Humberto Qureshi MD, [facility]([phone]), at 05/06/2023 11:09 AM Maegan Mike [employer] IMG PET ORDERABLE S documented in this encounter Visit Diagnoses Not on filedocumented in this encounter Care Teams Founder And Chief Executive Officer Relationship Specialty Start Date End Date Polo Pearce PA [address] [place] [address] PCP - General Internal Medicine 06/09/21 documented as of this encounter
--- OUTSIDE RECORDS SUMMARY | 2023-09-20 14:34 | XMS_ITS | Encounter Summary ---
Author Organization [facility] [place] [address] Care Team Providers Care Manager Commercial Sales Name Role Phone Polo Pearce Primary Care Provider [phone] Encounter Details Date Type Department Care Team (Latest Contact Info) Description 04/30/2023 Travel Social History Tobacco Use Types Packs/Day Years Used Date Smoking Tobacco: Never Smokeless Tobacco: Never Alcohol Use Standard Drinks/Week Comments Never 0 (1 standard drink = 0.6 oz pur e alcohol) [facility] Utilities Answer Date Recorded In the past [...] in a care home (including now)? No 04/19/2023 [facility] Inpatient Questions Answer Date Recorded Does [...] AM EDT Tech [place] [address] Jose Cook 10/08/2023 9:30 AM EDT Office [place] [address] MD [facility] [place] [place] [address] 10/21/2023 10:30 AM EDT Appointment [place] [address] Mary Reyes [facility] [place] [place] [address] 10/21/2023 11:30 AM EDT Appointment [place] [phone] Mary Reyes SHREDDER/GRANULATOR OPERATOR [facility] [place] [address] 10/21/2023 12:30 PM EDT Appointment [place] [address] Mary Reyes, [facility] [place] [address] 10/21/2023 1:30 PM EDT Appointment [place] [address] Mary Reyes, [facility] [place] [address] 10/21/2023 2:30 PM EDT Appointment [place] [address] Mary Reyes, [facility] [place] [address] 10/26/2023 4:00 PM EDT Office Visit Cardiology at [address] [phone] Jaspreet Kinsey MD [facility] [place] [address] 10/28/2023 9:00 AM EDT Office [place] [address] 10/29/2023 10:00 AM EDT Clinical Support [place] [address] 10/29/2023 10:15 AM EDT Procedure [place] [address] 11/01/2023 5:00 PM EDT Office [place] [address] Selene Browning, PhD [facility] [place] [address] 11/22/2023 4:40 PM EDT Office Visit Cardiology at [address] [phone] Porsha Mcdaniels MD [facility] [place] [address] 12/13/2023 10:00 AM EDT Clinical [place] [phone] [facility] [place] [address] documented as of this encounter Visit Diagnoses Not on filedocumented in this encounter Care Teams Manager Commercial Sales Relationship Specialty Start Date End Date Polo Pearce PA [address] [place] [address] PCP - General Internal Medicine 06/09/21 documented as of this encounter
--- OUTSIDE RECORDS SUMMARY | 2023-09-20 14:34 | XMS_ITS | Encounter Summary ---
Author Organization [facility] Address [facility] [place] [address] Care Team Providers Care Gear Inspector Name Role Phone Polo Pearce Primary Care Provider [phone] Reason for Referral * Consultation (Routine) - Closed Specialty Diagnoses / Procedures Referred By Jayant harris Referred To Contact Cardiology Diagnoses Heart failure with preserved ejection fraction, unspecified HF chronicity MIN[place]. thorough evaluation performed to date. Jaspreet Kinsey MD [facility] [place] [address] Porsha Mcdaniels MD [facility] [place] [address] Referral ID Status Reason Start Date Expiration Date V isits Requested Visits Authorized [id number] Closed Consult, Test & Treat 06/09/2023 06/08/2024 1 1 Encounter Details Date Type Department Care Team (Late st Contact Info) Description 06/09/2023 Telephone Cardiology at [address] [place] [address] [address] [facility] [place] [address] Social History Tobacco Use Types Packs/Day Years Used Date Smoking Tobacco: Never Smokeless Tobacco: Never Alcohol Use Standard Drinks/Week Comments Never 0 (1 standard drink = 0.6 oz pur e alcohol) [facility] Utilities Answer Date Recorded In the [...] slept in a correction (including now)? No 04/19/2023 [facility] IPV Inpatient [...] encounter Miscellaneous Notes * Telephone Encounter - Nilda Mayes, RN - 06/09/2023 10:55 AM EDT Call to Indira with Dr Kinsey' assessment and recommendations. * Telephone Encounter - Jaspreet Kinsey MD - 06/09/2023 9:57 AM EDT Labs reviewed; all were unremarkable. If she's having a good response to torsemide and keeping on low sodium diet, unsure how she would be gaining fluid. Will send prescription for metolazone to take PRN weight gain to the pharmacy. Havejean pierreo placed referral to cardiology at 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 * Telephone Encounter - Genoveva Glasgow - 06/09/2023 9:24 AM EDT Patient called @ 9:20 a.m. on 06/09/23. She said she called on 06/04/23 and was told someone would call her back this week. She would like to know the results of her recent labs. She stated she is also having trouble with weight gain and overall not feeling well. She said she had to leave work early on 06/08/23 and go home and take a Nitro. She would like a call back today. documented in this encounter Plan of Treatment Upcoming Encounters Date Type Department Care Team (Late st Contact Info) Description 10/08/2023 8:30 AM EDT Tech [place] [address] Jose Cook 10/08/2023 9:30 AM EDT Office Visit [place] [address] MD [facility] [place] [address] 10/21/2023 10:30 AM EDT Appointment [place] [address] Mary Reyes [facility] [place] [address] 10/21/2023 11:30 AM EDT Appointment Nuclear Medicine at [place] [phone] Mary Reyes [facility] [place] [address] 10/21/2023 12:30 PM EDT Appointment Nuclear Medicine at [place] [phone] Mary Reyes [facility] [place] [place] [address] 10/21/2023 1:30 PM EDT Appointment [place] [address] Mary Reyes [facility] [place] [place] [address] 10/21/2023 2:30 PM EDT Appointment [place] [address] Mary Reyes [facility] [place] [place] [address] 10/26/2023 4:00 PM EDT Office Visit Cardiology at [address] [phone] [facility] [place] [address] 10/28/2023 9:00 AM EDT Office [place] [address] 10/29/2023 10:00 AM EDT Clinical [place] [address] 10/29/2023 10:15 AM EDT Procedure [place] [address] 11/01/2023 5:00 PM EDT Office Visit Gastroenterology at [place] [phone] Selene Browning, PhD [facility] [place] [address] 11/22/2023 4:40 PM EDT Office Visit Cardiology at [address] [address] Porsha Mcdaniels MD [facility] [place] [address] 12/13/2023 10:00 AM EDT Clinical Support [place] [address] Lucero Romero, RD [facility] [place] [address] Scheduled Referrals Name Type Priority Associated Diagnoses Orde r Schedule Referral to Cardiology Outpatient Referral Routine Heart failure with preserved ejection fraction, unspecified HF chronicity Ordered: 06/09/2023 documented as of this encounter Visit Diagnoses Diagnosis Heart failure with preserved ejection fraction, unspecified HF chronicity documented in this encounter Care Teams Gear Inspector Relationship Specialty Start Date End Date Polo Pearce PA [address] [place] [address] PCP - General Internal Medicine 06/09/21 documented as of this encounter
--- OUTSIDE RECORDS SUMMARY | 2023-09-20 14:34 | XMS_ITS | Encounter Summary ---
Author Organization [facility] Address [facility] [place] [address] Care Team Providers Care Art Class Model Name Role Phone Polo Pearce Primary Care Provider [phone] Reason for Visit * Reason Comments Cardiomyopathy Encounter Details Date Type Department Care Team (Late st Contact Info) Description 05/10/2023 2:40 PM EST Office Visit Cardiology at [address] [place] [address] Jaspreet Kinsey MD [facility] [place] [place] [address] Heart failure with preserved ejection fraction, unspecified HF chronicity (Primary Dx); SVT (supraventricular tachycardia) Social History Tobacco Use Types Packs/Day Years Used Date Smoking Tobacco: Never Smokeless Tobacco: Never Alcohol Use Standard Drinks/Week Comments Never 0 (1 standard drink = 0.6 oz pur e alcohol) [facility] Utilities Answer Date Recorded In the past 12 months has [employer] electric, gas, oil, or water company threatened [...] in a halfway (including now)? No 04/19/2023 [facility] IPV Inpatient [...] Sign Reading Time Taken Comments Blood Pressure 113/58 05/10/2023 2:44 PM EST Pulse 61 05/10/2023 2:44 PM EST Temperature - - Respiratory Rate - - Oxygen Saturation - - Inhaled Oxygen Concentration - - Weight 102.1 kg (225 lb) 05/10/2023 2:44 PM EST Height 162.6 cm (5' 4) 05/10/2023 2:44 PM EST Body Mass Index 38.62 05/10/2023 2:44 PM EST documented in this encounter Progress Notes * Jaspreet Kinsey MD - 05/10/2023 2:40 PM EST Images from the original note were not included. Subjective: Patient ID: Indira Roque is a 53 y.o. female who presents on follow-up for: Chief Complaint Patient presents with Cardiomyopathy HPI Last seen by me 03/2023, at which time no changes were made In the interval, she had a successful ablation of the SVT. She was shortly thereafter admitted withnste-acs, where and since a comprehensive evaluation has been performed (as per problem list) Since the cardiac PET she has gained about 12 lbs, without change in diet nor medication non-compliance. No angina/cp To recalls no common issues surrounding her recent chest pain episodes. She has migraines, but she never had them concomitant nor did she use any migrane PRNs near in time to those admissions. No joints with excessive rubor/calor. No bleeding on eliquis + lingering dry cough Current Outpatient Medications Medication Instructions albuterol (PROVENTIL HFA;VENTOLIN HFA) 90 mcg/Actuation inhaler 2 puffs, Inhalation, EVERY 4 HOURS PRN, Use with spacer amLODIPine (NORVASC) 2.5 mg, Oral, DAILY apixaban (ELIQUIS) 5 mg, Oral, 2 TIMES DAILY atorvastatin (LIPITOR) 40 mg, Oral, EVERY EVENING DULoxetine DR (CYMBALTA) 60 mg, DAILY empagliflozin (JARDIANCE) 10 mg, Oral, DAILY fluticasone propionate (FLONASE) 50 mcg/actuation [place], Suspension 1 spray, Each Nare, PRN gabapentin (NEURONTIN) 600 mg, Oral, NIGHTLY loratadine (CLARITIN) 10 mg, Oral, DAILY PRN melatonin 10 mg, Oral, NIGHTLY PRN nitroGLYcerin (NITROSTAT) 0.4 mg, Sublingual, EVERY 5 MIN PRN Nurtec ODT 75 mg, Oral, DAILY omeprazole (PRILOSEC) 20 mg, Oral, ONCE PRN, Infrequent use rOPINIRole (REQUIP) 2 mg, Oral, 2 TIMES DAILY spironolactone (ALDACTONE) 25 mg, Oral, DAILY topiramate (TOPAMAX) 100 mg, Oral, NIGHTLY torsemide (DEMADEX) 40 mg, Oral, 2 TIMES DAILY Patient Active Problem List Diagnosis Paroxysmal atrial fibrillation 10/20/2022: diagnosed in clinic (see EKG on same date) with c/o chest pain 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 Anterior scar pattern Endometriosis Stenosis of left carotid artery greater than 50% Restrictive lung disease secondary to obesity Paresthesia of hand, bilateral Obesity Dyslipidemia Obstructive sleep apnea syndrome Insomnia Restless legs Asthma Objective: BP 113/58 (BP Location (NBP): Right arm, Patient Position: Sitting, BP Cuff Sizes: Adult (25-34 cm)) Pulse 61 Ht 162.6 cm (5' 4) Wt 102.1 kg (225 lb) BMI 38.62 kg/m?? Gen: pleasant female in NAD Cor: rrr, s1/s2 of nl character and amplitude, no pathologic m/r/g. Estimated RAP 11. Carotids withnormal upstroke without bruit. Pulm: CTAB. Normal diaphragmatic movement without use of accessory muscles Assessment and Plan: (HFpEF) heart failure with preserved ejection fraction This was the main focus of the visit today. We have no significant epicardial CAD, no sarcoid (eventhough this was the leading possibility based on the CMR), and no concomitant arrhythmias. Will perform rather comprehensive laboratory assessment, and if unremarkable consider referral to the clare Mcdaniels of [facility] expertise IN the meantime, increase torsemide to 40 BID. - KATHRINE - ASO - Lyme Ab's - SPEP, FLC - iron, tibc, ferritin RTC pending evaluation. Jaspreet Kinsey MD documented in this encounter Miscellaneous Notes * Assessment & Plan Note - Jaspreet Kinsey MD - 05/10/2023 3:23 PM EST Associated Problem(s): (HFpEF) heart failure with preserved ejection fraction This was the main focus of the visit today. We have no significant epicardial CAD, no sarcoid (eventhough this was the leading possibility based on the CMR), and no concomitant arrhythmias. Will perform rather comprehensive laboratory assessment, and if unremarkable consider referral to the good Dr Mcdaniels of [place] expertise IN the meantime, increase torsemide to 40 BID. - KATHRINE - ASO - Lyme Ab's - SPEP, FLC - iron, tibc, ferritin documented in this encounter Plan of Treatment Upcoming Encounters Date Type Department Care Team (Late st Contact Info) Description 10/08/2023 8:30 AM EDT Tech [place] [address] Jose Cook 10/08/2023 9:30 AM EDT Office [place] [address] MD [facility] [place] [address] 10/21/2023 10:30 AM EDT Appointment [place] [phone] Mary Reyes [facility] [place] [address] 10/21/2023 11:30 AM EDT Appointment [place] [phone] Mary Reyes [facility] [place] [address] 10/21/2023 12:30 PM EDT Appointment [place] [phone] Mary Reyes [facility] [place] [address] 10/21/2023 1:30 PM EDT Appointment [place] [address] Mary Reyes SHEET METAL JOURNEYMAN [facility] [place] [address] 10/21/2023 2:30 PM EDT Appointment [place] [address] Mary Reyes SHEET METAL JOURNEYMAN [facility] [place] [place] [address] 10/26/2023 4:00 PM EDT Office Visit Cardiology at [address] [phone] Jaspreet Kinsey MD [facility] [place] [address] 10/28/2023 9:00 AM EDT Office [place] [address] 10/29/2023 10:00 AM EDT Clinical [place] [address] 10/29/2023 10:15 AM EDT Procedure [place] [address] 11/01/2023 5:00 PM EDT Office [place] [address] Selene Browning, PhD [facility] [place] [address] 11/22/2023 4:40 PM EDT Office Visit Cardiology at [address] [address] Porsha Mcdaniels MD [facility] [place] [address] 12/13/2023 10:00 AM EDT Clinical Support [facility] [place] [address] [facility] [place] [address] documented as of this encounter Results * Streptococcal Antibody Panel (08/25/2023 11:28 AM EDT) [facility] ASO Titer 25 0 - 530 IU/mL [facility] Comment: Test Performed by: [place] [address] Child Care Nurse: Nellie Haney Ph.D.; CLIA# [id number] DNase B Ab 146 0 - 300 unit/mL [facility] Comment: Test Performed by: [place] [address] Child Care Nurse: Nellie Haney Ph.D.; CLIA# [id number] Blood 08/25/2023 11:2 8 AM EDT 08/25/2023 1:02 PM EDT Narrative Resulting Agency Comment Spec In Lab Jaspreet Kinsey MD IMMUNOLOGY ORDERABLE S [facility] [place] [place] [address] * Lyme IgG & IgM Antibody (08/25/2023 11:28 AM EDT) [facility] Lyme Screening Antibody Negative Negative [facility] Lyme Ab Comment Negative result does not exclude possibility of infection. [facility] Comment: Please note that as of 07/14/2022 that this testing is performed by the Special Chemistry Laboratory at [facility]. This change in testing location is associated with a change in testing methodology. Blood 08/25/2023 11:2 8 AM EDT 08/26/2023 7:26 AM EDT Narrative Resulting Agency Comment Spec In Lab Jaspreet Kinsey MD IMMUNOLOGY ORDERABLE S Performing Organization Address [facility] Co de Phone Number [facility] [place] [place] [address] * Ferritin (08/25/2023 11:28 AM EDT) Ferritin 110 11 - 328 ng/mL [facility] Comment: Please note that as of 02/10/2023, the reference intervals for Ferritin have been updated. Blood 08/25/2023 11:2 8 AM EDT 08/25/2023 11:37 AM EDT Narrative Resulting Agency Comment Spec In Lab Jaspreet Kinsey MD CHEMISTRY ORDERABLES Performing Organization Address [facility] Co de Phone Number [facility] [place] [place] [address] * Iron and TIBC (08/25/2023 11:28 AM EDT) Iron 113 30 - 150 mcg/dL [facility] TIBC 338 250 - 450 mcg/dL [facility] Iron Saturation 33 20 - 50 % [facility] Blood 08/25/2023 11:2 8 AM EDT 08/25/2023 11:36 AM EDT Narrative Resulting Agency Comment Spec In Lab Jaspreet Kinsey MD CHEMISTRY ORDERABLES Performing Organization Address [facility] Co de Phone Number [facility] [place] [address] * (ABNORMAL) Free Light Chains, Serum (08/25/2023 11:28 AM EDT) [place] Free Light Chain 3.09(H) 0.72 - 2.75 mg/dL [facility] Lambda Free Light Chain 1.65 0.57 - 2.15 mg/dL [facility] [place] Lambda FLC Ratio 1.8727 0.4000 - 2.5800 [facility] Blood 08/25/2023 11:2 8 AM EDT 08/25/2023 11:36 AM EDT Narrative Resulting Agency Comment Spec In Lab Jaspreet Kinsey MD CHEMISTRY ORDERABLES Performing Organization Address [facility] Co de Phone Number [facility] [place] [place] [address] * (ABNORMAL) Protein Electrophoresis, serum (08/25/2023 11:28 AM EDT) Pathologist [facility] Total Prot Elec 7.5 6.1 - 8.0 g/dL [facility] Albumin Elect 4.62 3.20 - 5.20 g/dL [facility] Alpha1-Globul in 0.20 0.10 - 0.30 g/dL [facility] Alpha2-Globul in 0.92(H) 0.40 - 0.90 g/dL [facility] Beta Globulin 0.89 0.50 - 1.00 g/dL [facility] Gamma Globulin 0.88 0.50 - 1.30 g/dL [facility] M1 Band None Detected None Detected [facility] Blood 08/25/2023 11:2 8 AM EDT 08/25/2023 11:37 AM EDT Narrative Resulting Agency Comment Spec In Lab Jaspreet Kinsey MD CHEMISTRY ORDERABLES Performing Organization Address [facility]/ZIP Co de Phone Number [facility] [place] [place] [address] * KATHRINE Antibody Screen (08/25/2023 11:28 AM EDT) Pathologist [facility] Antinuclear Ab Negative Negative [facility] Comment: This antinuclear antibody (KATHRINE) screen is a qualitative test performed using a fluoroenzyme immunoassay on the Digiboo 250 analyzer. This screen is designed to detect antibodies to U1RNP, SS-A/Ro, SS-B/La, centromere B, Scl-70, Dasia-1, and Sm([place]ar) proteins in serum samples. Antibodies to other nuclear antibodies will not be detected with this assay. This KATHRINE screen is also performed in concert with a quantitative for IgG antibodies to dsDNA. dsDNA Ab 1.0 <=15.0 IU/mL [facility] Comment: <10 negative 10-15 equivocal >15 positive This dsDNA antibody result was generated using a fluoroenzyme immunoassay on the [place] 250 analyzer. This quantitative test is designed to detect IgG antibodies directed against double stranded DNA in human serum. The presence of antibodies that recognize dsDNA is a highly specific marker for systemic lupus erythematosus. Please note that as of 12/30/2021 that this testing is performed by the Special Chemistry Laboratory at [facility]. This change in testing location is associated with a change is testing method and reference intervals. Please review the results of this test in association with the posted reference intervals. Blood 08/25/2023 11:2 8 AM EDT 08/26/2023 7:26 AM EDT Narrative Resulting Agency Comment Spec In Lab Jaspreet Kinsey MD IMMUNOLOGY ORDERABLE S [facility] [place] [phone] documented in this encounter Visit Diagnoses Diagnosis Heart failure with preserved ejection fraction, unspecified HF chronicity- Primary SVT (supraventricular tachycardia) Other specified cardiac dysrhythmias documented in this encounter Care Teams Art Class Model Relationship Specialty Start Date End Date Polo Pearce PA [address] [place] [address] PCP - General Internal Medicine 06/09/21 documented as of this encounter
--- OUTSIDE RECORDS SUMMARY | 2023-09-20 14:34 | XMS_ITS | Encounter Summary ---
[place] [address] Care Team Providers Care Dehairing Machine Tender Name Role Phone Polo Pearce Primary Care Provider [phone] Reason for Visit * Diagnostic Test (Routine) - Closed Specialty Diagnoses / Procedures Referred By Jayant harris Referred To Contact Radiology Diagnoses Chest pain, unspecified type Procedures NM PET CT Cardiac Sarcoid Maegan Mike [facility] [address] [place] [address] Referral ID Status Reason Start Date Expiration Date V isits Requested Visits Authorized [id number] Closed Specialty Service Requested 04/22/2023 10/20/2024 4 4 Encounter Details Date Type Department Care Team (Latest Contact Info) Description 04/30/2023 11:05 AM EST Hospital Encounter [place] [address] Maegan Mike [facility] [place] [address] Discharge Disposition: Home Social History Tobacco Use Types Packs/Day Years Used Date Smoking Tobacco: Never Smokeless Tobacco: Never Alcohol Use Standard Drinks/Week Comments Never 0 (1 standard drink = 0.6 oz pur e alcohol) [facility] Utilities Answer Date Recorded In the [...] place to sleep or slept in a alf (including now)? No 04/19/2023 DH IPV Inpatient [...] nightly as needed. 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 90 tablet 1 06/11/2021 rOPINIRole (Requip) 1 mg Tablet Take 2 mg by mouth 2 times daily. 07/16/2020 loratadine (Claritin) 10 mg Tablet Take 10 mg by mouth daily as needed. fluticasone propionate (FLONASE) 50 mcg/actuation [place], Suspension 1 spray by Each Nare route [...] AM EDT Tech [place] [address] Jose Cook 10/08/2023 9:30 AM EDT Office [place] [address] MD [facility] [place] [address] 10/21/2023 10:30 AM EDT Appointment Nuclear Medicine at [place] [phone] Mary Reyes, [facility] [address] 10/21/2023 11:30 AM EDT Appointment Nuclear Medicine at [place] [phone] Mary Reyes [facility] [place] [address] 10/21/2023 12:30 PM EDT Appointment [place] [address] Mary Reyes [facility] [place] [address] 10/21/2023 1:30 PM EDT Appointment [place] [address] Mary Reyes [facility] [place] [address] 10/21/2023 2:30 PM EDT Appointment [place] [address] Mary Reyes [facility] [place] [address] 10/26/2023 4:00 PM EDT Office Visit Cardiology at [address] [place] [address] Jaspreet Kinsey MD [facility] [place] [address] 10/28/2023 9:00 AM EDT Office [place] [address] 10/29/2023 10:00 AM EDT Clinical [place] [address] 10/29/2023 10:15 AM EDT Procedure [place] [address] 11/01/2023 5:00 PM EDT Office [place] [phone] Selene Browning, [facility] [place] [address] 11/22/2023 4:40 PM EDT Office Visit Cardiology at [address] [phone] Porsha Mcdaniels MD [facility] [place] [address] 12/13/2023 10:00 AM EDT Clinical [place] [phone] [facility] [place] [address] documented as of this encounter Procedures Procedure Name Priority Date/Time Associated Diagnosis Comments NM PET CT CARDIAC SARCOID Routine 04/30/2023 1:45 PM EST Chest pain, unspecified type documented in this encounter Visit Diagnoses Not on filedocumented in this encounter Administered Medications Inactive Administered Medications - up to 3 most recent administrations Medication Order MAR Action Action Date Dose Rate Site fludeoxyglucose (F-18) FDG injection 0-20 mCi 0-20 mCi, Intravenous, ONCE PRN, 1 dose, Starting on Wed04/30/23 at 1228, Until Wed04/30/23 at 1223, Per Protocol, Radiology Contrast, Routine Given 04/30/2023 12:23 PM EST 9.8 mCi documented in this encounter Care Teams Dehairing Machine Tender Relationship Specialty Start Date End Date Polo Pearce PA [address] [place] [address] PCP - General Internal Medicine 06/09/21 documented as of this encounter
--- OUTSIDE RECORDS SUMMARY | 2023-09-20 14:34 | XMS_ITS | Encounter Summary ---
[place] [address] Care Team Providers Care Manufacturing Software Engineer Name Role Phone Polo Pearce Primary Care Provider [phone] Encounter Details Date Type Department Care Team (Late st Contact Info) Description 06/14/2023 External [place] [phone] Social History Tobacco Use Types Packs/Day Years Used Date Smoking Tobacco: Never Smokeless Tobacco: Never Alcohol Use Standard Drinks/Week Comments Never 0 (1 standard drink = 0.6 oz pur e alcohol) [facility] Utilities Answer Date Recorded In the [...] in a penitentiary (including now)? No 06/15/2023 IPV Inpatient Questions [...] AM EDT Tech Visit Vascular Lab at [place] [phone] Jose Cook 10/08/2023 9:30 AM EDT Office Visit Vascular Surgery at [place] [phone] MD [facility] [place] [address] 10/21/2023 10:30 AM EDT Appointment Nuclear Medicine at [place] [phone] Mary Reyes APRN [facility] [place] [address] 10/21/2023 11:30 AM EDT Appointment [place] [phone] Mary Reyes APRN [facility] [place] [address] 10/21/2023 12:30 PM EDT Appointment [place] [address] Mary Reyes [facility] [place] [address] 10/21/2023 1:30 PM EDT Appointment [place] [address] Mary Reyes [facility] [place] [address] 10/21/2023 2:30 PM EDT Appointment [place] [address] Mary Reyes, [facility] [place] [address] 10/26/2023 4:00 PM EDT Office Visit Cardiology at [address] [phone] Jaspreet Kinsey MD [facility] [place] [address] 10/28/2023 9:00 AM EDT Office [place] [address] 10/29/2023 10:00 AM EDT Clinical [place] [address] 10/29/2023 10:15 AM EDT Procedure [place] [address] 11/01/2023 5:00 PM EDT Office Visit [place] [address] Selene Browning, PhD [facility] [place] [address] 11/22/2023 4:40 PM EDT Office Visit Cardiology at [address] [phone] Porsha Mcdaniels MD [facility] [place] [address] 12/13/2023 10:00 AM EDT Clinical Support [place] [address] Lucero Romero, [facility] [place] [address] documented as of this encounter Procedures Procedure Name Priority Date/Time Associated Diagnosis Comments ECG SCAN Routine 06/14/2023 11:24 AM EDT documented in this encounter Results * Scan Doc: ECG (06/14/2023 11:24 AM EDT) Historical Provider MD FLEMING MGTalia SCAN EX T ORDR/RSLT documented in this encounter Visit Diagnoses Not on filedocumented in this encounter Care Teams Manufacturing Software Engineer Relationship Specialty Start Date End Date Polo Pearce PA [address] [place] [address] PCP - General Internal Medicine 06/09/21 documented as of this encounter
--- OUTSIDE RECORDS SUMMARY | 2023-09-20 14:34 | XMS_ITS | Encounter Summary ---
Author Organization [facility] Address [facility] [place] [address] Care Team Providers Care Band Director Name Role Phone Polo Pearce Primary Care Provider [phone] Encounter Details Date Type Department Care Team (Late st Contact Info) Description 06/14/2023 Telephone Cardiology at [address] [place] [address] Sarah Kahn, ENTRY LEVEL MANUFACTURING ENGINEER [place] [address] Social History Tobacco Use Types Packs/Day Years Used Date Smoking Tobacco: Never Smokeless Tobacco: Never Alcohol Use Standard Drinks/Week Comments Never 0 (1 standard drink = 0.6 oz pur e alcohol) [facility] Utilities Answer Date Recorded In the past 12 months has [facility], gas, oil, or water [employer] threatened to shut off services in your [...] place to sleep or slept in a fdc (including now)? No 06/15/2023 DH IPV Inpatient [...] encounter Miscellaneous Notes * Telephone Encounter - Sarah Kahn APRN - 06/14/2023 11:38 AM EDT 06/14/2023 Indira Roque Initial Contact Date: 06/14/2023 Initial contact time: 11:38 AM Referring Provider: Dr. Iyer Patient Location: [facility] Past Medical History: Mild, nonobstructive CAD, s/p [facility] 04/2023 for similar presentation SVT s/p EPS and SVT ablation on 04/01/[address] Tovar Paroxysmal A-fib (diagnosed on 10/20/2022) HFpEF Pulmonary emboli on Eliquis Restrictive lung disease secondary to obesity Presenting Symptoms / OSH Course: Patient presented to the ED with malaise over the last week, evolving into severe chest pain, diaphoresis, shortness of breath over the last two days. The symptoms have been constant and worse with deep breathing. On presentation, she was hemodynamically stable. EKG showed HR 68, sinus rhythm with PACs, anterolateral ST depressions (c/w prior EKGs during chest pain episodes). Troponin was markedly elevated > 800 (ULN 60). She was started on a low dose NTG infusion (currently 10 mcg/min) and a heparin infusion without bolus (on apixaban). She has an CATIE (Cr 2.1, baseline is 1.4), but benefit of chest CTA to rule out PE given her history was felt to outweigh risks. Chest CTA showed no evidence of PE, but did show diffuse bilateral and symmetrical GG marking throughout both lung teran.Labs were also notable for WBC WNL, proBNP 3800, and potassium 2.2 (being repleted). She does not appear to be volume overloaded. POCUS showed no effusion. She was admitted in Apr 2023 for ACS/NSTEMI with LHC showing mild, non- obstructive CAD. Cardiac MRIwas c/f sarcoid, but subsequent PET scan showed no evidence of inflammation/sarcoid. Troponin at [facility] at the time of her event in Apr was in the 580s. Recent vitals: BP 127/57, HR 57, RR 16, spO2 90% RA, temp 36.6 Plan: Etiology of chest pain and elevated troponin is unclear, as she just had extensive, unremarkable work up two months ago for a similar presentation. Regardless, given her ongoing chest pain, markedly elevated troponin and proBNP without explanation for non-cardiac etiology, will accept for transfer for higher level of care and further work up/management of NSTEMI. She is on heparin and low dose nitro infusions. Recommended aspirin load and echocardiogram while she awaits bed placement (may not be until tomorrow). She is currently hemodynamically stable, but I have asked Dr. Iyer to call backif her situation changes. Encouraged the OSH to call back with any updates or questions. The above recommendations were based on my discussion with Dr. Iyer; I have not personally interviewed or examined this patient. Sarah Kahn, MICHELL, SALES AND DISTRIBUTION CLERK-BC, ENTRY LEVEL MANUFACTURING ENGINEER [facility] documented in this encounter Plan of Treatment Upcoming Encounters Date Type Department Care Team (Late st Contact Info) Description 10/08/2023 8:30 AM EDT Tech [place] [phone] Jose Cook 10/08/2023 9:30 AM EDT Office Visit Vascular Surgery at [place] [phone] MD [facility] [place] [address] 10/21/2023 10:30 AM EDT Appointment Nuclear Medicine at [address] Mary Reyes [facility] [place] [address] 10/21/2023 11:30 AM EDT Appointment Nuclear Medicine at [place] [phone] Mary Reyes [facility] [place] [address] 10/21/2023 12:30 PM EDT Appointment Nuclear Medicine at [place] [phone] Mary Reyes [facility] [place] [address] 10/21/2023 1:30 PM EDT Appointment Nuclear Medicine at [place] [phone] Mary Reyes [facility] [place] [address] 10/21/2023 2:30 PM EDT Appointment [place] [address] Mary Reyes [facility] [place] [address] 10/26/2023 4:00 PM EDT Office Visit Cardiology at [address] [place] [phone] Jaspreet Kinsey MD [facility] [place] [address] 10/28/2023 9:00 AM EDT Office [place] [address] 10/29/2023 10:00 AM EDT Clinical [place] [address] 10/29/2023 10:15 AM EDT Procedure [place] [address] 11/01/2023 5:00 PM EDT Office Visit Gastroenterology at [place] [phone] Selene Browning, PhD [facility] [place] [address] 11/22/2023 4:40 PM EDT Office Visit Cardiology at [address] [phone] Porsha Mcdaniels MD [facility] [place] [address] 12/13/2023 10:00 AM EDT Clinical Support [place] [address] [facility] [place] [address] documented as of this encounter Visit Diagnoses Not on filedocumented in this encounter Care Teams Band Director Relationship Specialty Start Date End Date Polo Pearce PA [address] [place] [address] PCP - General Internal Medicine 06/09/21 documented as of this encounter
--- OUTSIDE RECORDS SUMMARY | 2023-09-20 14:34 | XMS_ITS | Encounter Summary ---
[place] [address] Care Team Providers Care Job Setter Honing Name Role Phone Polo Pearce Primary Care Provider [phone] Reason for Referral * Diagnostic Test (Routine) - Authorized Specialty Diagnoses / Procedures Referred By Jayant harris Referred To Contact Diagnoses Mesenteric ischemia Procedures Duplex Study Visceral Arteries, Comp Mamie Marx APRN [facility] [place] [address] [facility] Vascular Lab [address] [place] [phone] Referral ID Status Reason Start Date Expiration Date Visits Requested Visits Authorized [id number] Authorized Specialty Service Requested 06/28/2023 06/27/2024 1 1 Encounter Details Date Type Department Care Team (Late st Contact Info) Description 06/28/2023 Orders Only Vascular Surgery at [address] [address] Mamie Marx APRN [facility] [place] [address] Mesenteric ischemia Social History Tobacco Use Types Packs/Day Years Used Date Smoking Tobacco: Never Smokeless Tobacco: Never Alcohol Use Standard Drinks/Week Comments Never 0 (1 standard drink = 0.6 oz pur e alcohol) [facility] Utilities Answer Date Recorded In the [...] in a retirement (including now)? No 06/15/2023 IPV Inpatient Questions [...] AM EDT Tech [place] [address] Jose Cook 10/08/2023 9:30 AM EDT Office Visit [place] [phone] MD [facility] [place] [address] 10/21/2023 10:30 AM EDT Appointment [place] [address] Mary Reyes, [facility] [place] [address] 10/21/2023 11:30 AM EDT Appointment [place] [address] [facility] [address] 10/21/2023 12:30 PM EDT Appointment [place] [address] [facility] [address] 10/21/2023 1:30 PM EDT Appointment [place] [address] [facility] [address] 10/21/2023 2:30 PM EDT Appointment [place] [address] [facility] [place] [address] 10/26/2023 4:00 PM EDT Office Visit Cardiology at [address] [address] Jaspreet Kinsey MD [facility] [place] [address] 10/28/2023 9:00 AM EDT Office [place] [address] 10/29/2023 10:00 AM EDT Clinical [place] [address] 10/29/2023 10:15 AM EDT Procedure [place] [address] 11/01/2023 5:00 PM EDT Office Visit Gastroenterology at [place] [phone] Selene Browning, [facility] [place] [address] 11/22/2023 4:40 PM EDT Office Visit Cardiology at [place] [phone] Porsha Mcdaniels MD [facility] [place] [address] 12/13/2023 10:00 AM EDT Clinical Support Gastroenterology at [place] [phone] [facility] [place] [address] documented as of this encounter Results * Duplex Study Visceral Arteries, Comp (08/03/2023 8:36 AM EDT) VB Text Report Department: Vascular Surgery Lab Patient: [id number] (ROHAN, MELINDA) CPT: 58315 Referring Physician: MAMIE MARX ?? Phone: Indications: S/p SMA stenting (4/26) one month f/u, ? patency Findings: Unilateral ? Waveform ? PSV cm/s ??EDV cm/s ??Patent ?? Dary Visceral Aorta ? 71 ?14 ? Celiac Artery, Proximal ??Payne-Biphasic ? 100 ?22 ? Celiac Artery, Mid ? Payne-Biphasic ?99 ?19 ? Celiac Artery, Distal ?Payne-Biphasic ?94 ?18 ? Sup Mes Artery Proximal [...] within mesenteric artery stents may differ from big sandy arteries, with thresholds for diagnosis of significant stenosis likely being somewhat higher in stented arteries than big sandy.% To date, there is no evidence based consensus of stent velocity criteria. Therefore, the current interpretation is based on big sandy artery thresholds. Previous Celiac/Mesenteric Studies: Date ? [...] EDT Mamie Marx APRN [facility] documented in this encounter Visit Diagnoses Diagnosis Mesenteric ischemia Unspecified vascular insufficiency of intestine documented in this encounter Care Teams Job Setter Honing Relationship Specialty Start Date End Date Polo Pearce PA [address] [place] [address] PCP - General Internal Medicine 06/09/21 documented as of this encounter
--- OUTSIDE RECORDS SUMMARY | 2023-09-20 14:35 | XMS_ITS | Encounter Summary ---
Author Organization [facility] [place] [address] Care Team Providers Care Line Installer Name Role Phone Polo Pearce Primary Care Provider [phone] Reason for Visit * Auth/Cert (Routine) Specialty Diagnoses / Procedures Referred By Jayant harris Referred To Contact Diagnoses NSTEMI (non-ST elevated myocardial infarction) NSTEMI Procedures ER Terrence Pantoja MD [facility] [place] [place] [address] [facility] Referral ID Status Reason Start Date Expiration Date Visits Re quested Visits Authorized [id number] 1 1 Encounter Details Date Type Department Care Team (Late st Contact Info) Description 04/18/2023 9:00 AM EST - 04/18/2023 10:04 AM [place] [address] Dustin Carrasco MD [facility] [place] [address] CARDIAC CATHETERIZATION Social History Tobacco Use Types Packs/Day Years Used Date Smoking Tobacco: Never Smokeless Tobacco: Never Alcohol Use Standard Drinks/Week Comments Never 0 (1 standard drink = 0.6 oz pur e alcohol) [facility] Utilities Answer Date Recorded In the past 12 months has [place], oil, or water [employer] threatened to shut off services in your [...] slept in a usp (including now)? No 04/19/2023 DH IPV Inpatient [...] Sign Reading Time Taken Comments Blood Pressure 101/49 04/18/2023 7:46 AM EST Pulse 53 04/18/2023 7:46 AM EST Temperature 36.6 ??C (97.8 ??F) 04/18/2023 7:46 AM ES T Respiratory Rate 18 04/18/2023 7:46 AM EST Oxygen Saturation 97% 04/18/2023 7:46 AM EST Inhaled Oxygen Concentration - - Weight 98.4 kg (217 lb) 04/18/2023 5:00 AM EST Height 160 cm (5' 3) 04/17/2023 12:09 AM EST Body Mass Index 38.46 04/19/2023 2:10 PM EST documented in this encounter Discharge Summaries * Eufemia Copeland MD - 04/22/2023 7:48 AM EST Discharge Summary Patient Name: Loida Madrigal Patient Age: 53 y.o. Language: [place] Leonean Admit date: 04/16/2023 Discharge date and time: 04/19/2023 4:20 PM Attending Physician: Ailyn Knight MD. MD Eufemia Aly MD Discharge Physician: Terrence Maloney MD ID & follow-up Recommendations for Providers: 53 y.o. female with h/o mild nonobstructive mid LAD ASCVD on CCTA 09/2022, remote cardiac catheterization with normal coronaries 08/2019, supraventricular tachycardia (AVNRT since 06/2021) s/p EPS and SVT ablation on 04/01/[address] Tovar, paroxysmal A-fib (diagnosed on 10/20/2022), HFpEF, pulmonary emboli on Eliquis, and restrictive lung disease secondary to obesity transferred from [facility] for further evaluation of exertional chest pressure and breathlessness. Abnormal OSH troponin 500 and repeat HS Trop at [facility] peak 27 with flat trend and elevated proBNP 867, both similar to prior presentations. TTE 04/17 with progressing anterior wall motion abnormality. LHC 04/18 showed non-obstructive ASCVD. Underwent cardiac MRI 04/22/23 which was concerning for sarcoidosis. Patient will requiring PET sarcoidosis imaging outpatient #ASCVD nonoobstructive #Potential microvascular angina -added amlodipine 2.5mg daily. -plan for PET sarcoidosis imaging outpatient -f/u with Dr. Kinsey arranged prior to discharge Inpatient Provider Contact Information: Cardiovascular Medicine [phone] Discharge Diagnoses (Hospital Problems) and Secondary Diagnoses (Chronic Problems): Active Hospital Problems Diagnosis NSTEMI (non-ST elevated myocardial infarction) Resolved Hospital Problems No resolved problems to display. Active Non-Hospital Problems Diagnosis Endometriosis Stenosis of left carotid artery greater than 50% Restrictive lung disease secondary to obesity Paresthesia of hand, bilateral Paroxysmal atrial fibrillation Pulmonary embolus SVT (supraventricular tachycardia) Obesity Dyslipidemia Obstructive sleep apnea syndrome Insomnia (HFpEF) heart failure with preserved ejection fraction Restless legs Asthma Operations/Major Procedures and CV studies: Cardiac MRI 04/21/2023 Normal size of the left ventricle. Abnormal thinning in the left ventricular anterior wall and mild myocardial hypertrophy of the interventricular septum. There is abnormal enhancement in the left ventricular anterior wall which appears to be predominantly mid myocardial with some subendocardial sparing. In addition, there is patchy enhancement in the interventricular septum. Findings are most concerning for an infiltrative disease like sarcoidosis; less typical for amyloidosis or sequela of myocarditis. Hypokinesis of the left ventricular anterior wall. Low normal left ventricular ejection fraction of 55%. Dilated main pulmonary artery can be an indirect sign of pulmonary hypertension. Duplex for DVT, RUE 04/20/2023 RIGHT: Chronic appearing, focal superficial vein thrombosis of the cephalic vein in the distal upper arm/antecubital fossa. No evidence of upper extremity deep venous thrombus. No evidence of internal jugular vein thrombus. Arterial Duplex RUE 04/19/2023 RIGHT: Widely patent brachial, radial and ulnar arteries with triphasic Doppler waveforms and no evidence of stenosis/occlusion. Procedure(s): CARDIAC CATHETERIZATION 04/18/2023 Hemodynamics: Left Heart Pressures Resting: Syst Diast EDP a v m Ao 100 58 74 LV 97 8 Coronary Angiography: Dominance: Right Left Main There [...] segment of the right coronary artery (RCA). Conclusions: * Nonobstructive coronary artery disease TTE 04/17/2023 Left ventricle is normal in size and wall thickness. Normal global systolic function with regional wall motion abnormalities as ascribed on the anterior/anterolateral aspect. Right ventricle is normal in size and systolic function. No significant cardiac valve findings. No pericardial effusion. Compared to prior study dated 02/09/2023, the extent of the anterior abnormal wall motion has increased. CTA PE protocol at [facility]- no PE but showed small pericardial effusion and some GG opacities. History of Presentation: Loida Madrigal is a 53 y.o. with hx of paroxysmal A-fib (diagnosed on 10/20/2022), pulmonary emboli on Eliquis, HFpEF (EF of 59%), supraventricular tachycardia (AVNRT since 06/2021) s/p EPS and SVTablation on 04/01/[address] Tovar on [facility], restrictive lung disease secondary to obesity presents from [facility] with complains of chest discomfort that started overnight. The patient has been experiencing ongoing chest pain, prompting admission on 02/11/23 primarily due to concerns about a NSTEMI indicated by elevated troponin levels and EKG changes noted at OSH. However, the observed EKG changes remained largely consistent with previous recordings. Troponin levels at [facility] showed a plateau at 23 > 27. Notably, a CT coronary scan conducted in 09/2022 revealed non-obstructive coronary arteries. A TTE provided reassurance with a preserved ejection fraction of 59%. There were concerns about segmental wall motion abnormalities, which were absent in prior examinations. Despite ongoing chest pain throughout the admission, the discomfort was responsive to nitroglycerin. The patient's pre-admission amlodipine was discontinued due to hypotension and lower extremity edema, with ranolazine initiated on 02/10, which was later discontinued due to fogginess. Given the atypical presentation of chest pain exacerbated by deep breaths and alleviated by leaning forward, an ESRand CRP were obtained to explore the possibility of pericarditis. However, both inflammatory markers returned within normal ranges (ESR 15 and CRP < 3.0), excluding an inflammatory etiology for the chest pain. She was discharged to cardiac rehab and had been doing well. It was postulated that her tachyarrythmia is what underlies her chest pain. The patient presents with chest pain again 10/15, improving with sublingua Nitro. At [facility] Vitals: HR 48, BP 115/42, O2 96% on room air Troponin ~ 500 EKG: SR with nonspecific ST-T changes. CTA PE protocol: no PE but showed small pericardial effusion and some GG opacities. The patient hadCOVID 19 in February and has had chronic cough since then. The pateint has been loaded with ASA, Atorvastatin 80 mg , and Heparin gtt. Hospital Course: # Chest pain: undifferentiated # Anterior wall motion abnormality # NSTEMI II #Acute on chronic HFpEF Patient presented to [facility] on 04/16 with chest pain responsive to SL NTG. Troponin ~500x2. Transferredto [facility] for further evaluation. Troponin at [facility], 24>23 w/ repeat peak 27->26. She reported exertional chest pressure and dyspnea which had been progressing over the recent weeks and more pronounced over the days leading up to presentation. Some chest pain episodes with associated jaw and left arm discomfort along with nausea which sublingual nitroglycerin relieves. At times, chest discomfort with body position changes such as lying flat and deep inspiration along with orthopnea. Some of her discomforts are reproducible with palpitation. Abnormal troponin with flat trend similar to prior admissions, EKG with nonspecific changes, elevated BNP, negative inflammatory markers. TTE 04/17 with progressing anterior wall motion abnormality, preserved EF, and no pericardial effusion. She underwent LHC on 04/18 which showed non-obstructive ASCVD. Consider microvascular disease and started amlodipine 2.5mg daily. Underwent cardiac MRI to further evaluate for myocarditis (background covid infx 02/2023) or sarcoidosis (given presence of aneurysmal changes on TTE, hx of atrial/supraventricular arrhythmias). 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 Patient to obtain PET Cardiac Sarcoid Outpatient and follow-up with Dr. Kinsey arranged prior to discharge. #Hx of pAfib #Hx of AVNRT sp EPS and Ablation #Hx of PE Resumed on Eliquis 5 mg BID once no further procedures planned. Was on IV Heparin for procedural planning. # RUE edema Right forearm edematous and tender extending from antecubital fossa distally to phalanges on 2/12 AM. Arterial duplex without occlusion. RUE DVT duplex showed Chronic appearing, focal superficial vein thrombosis of the cephalic vein in the distal upper arm/antecubital fossa. No evidence of upper extremity deep venous thrombus. No evidence of internal jugular vein thrombus. Functional and Cognitive Status: awake, alert, ambulating well without assistance. No LE edema Important Studies and Lab Data: Labs: Lab Results Component Value Date WBC 7.5 04/19/2023 HGB 14.8 04/19/2023 HCT 45.5 04/19/2023 PLATELET 240 04/19/2023 Recent Labs 04/17/23 0333 INR 1.2 Lab Results Component Value Date NA 139 04/19/2023 K 4.0 04/19/2023 CL 105 04/19/2023 CO2 20 (L) 04/19/2023 BUN 22 (H) 04/19/2023 CREATININE 1.11 04/19/2023 Recent Labs 04/17/23 0333 TSH 5.93* Recent Labs 04/18/23 0210 HA1C 5.6 Recent Labs 04/17/23 0643 04/17/23 0333 TROPONINTHS 23* 24* Lab Results Component Value Date CHLPL 173 04/18/2023 HDL 44 04/18/2023 CHOLHDL 3.9 04/18/2023 TRIG 174 04/18/2023 LDLCHOL 94 04/18/2023 LDLDIRECT 105 04/18/2023 Latest Reference Range & Units 02/09/23 03:55 04/17/23 03:33 Sed Rate 2 - 39 mm/hr 15 12 CRP <=4.9 mg/L <3.0 <3.0 Prior CV studies Coronary CTA 09/24/2022 1. Coronary calcium score of 182 . 98%-ile rank based on age, race/ethnicity, and gender. 2. CAD-RADS 2. Mild mid-LAD stenosis (25-49%) secondary to calcific plaque. Calcium blooming may overestimate degree of stenosis. Otherwise, minimal diffuse atherosclerotic changes. 3. No evidence of acute aortopathy. 4. No acute pulmonary findings. RHC 06/09/2021-RA 4, PA 38/15 (24) PCWP 11, CO/CI 3.14/1.6. C 08/30/2019-normal coronary arteries. Cardiac MRI 04/21/23 Normal size of the left ventricle. Abnormal thinning in the left ventricular anterior wall and mild myocardial hypertrophy of the interventricular septum. There is abnormal enhancement in the left ventricular anterior wall which appears to be predominantly mid myocardial with some subendocardial sparing. In addition, there is patchy enhancement in the interventricular septum. Findings are most concerning for an infiltrative disease like sarcoidosis; less typical for amyloidosis or sequela of myocarditis. Hypokinesis of the left ventricular anterior wall. Low normal left ventricular ejection fraction of 55%. Dilated main pulmonary artery can be an indirect sign of pulmonary hypertension. Pending Studies and Lab Data: None [ ] PET CT Cardiac Sarcoid ordered, to be completed outpatient Discharge Conditions/Prognosis: stable Discharge to: home Updated Allergies/ADRs: Allergies Allergen Reactions Clobetasol Rash Other reaction(s): Skin Rash Acetaminophen Other (See Comments) Makes her jittery and feel weird Immunizations Given this Hospitalization: There is no immunization history on file for this patient. Discharge Medications: Your Medications UNREVIEWED medications - Discuss With Your Provider Dose Details albuteroL 90 mcg/actuation HFA Aerosol Inhaler Inhale 2 puffs into the lungs every 4 hours as needed. Use with spacer 2 puff Refills: 0 apixaban 5 mg tablet Commonly known as: Eliquis Take 1 tablet by mouth 2 times daily. 5 mg Quantity: 60 tablet Refills: 11 atorvastatin 80 mg tablet Commonly known as: Lipitor Take 1 tablet by mouth every evening. 80 mg Quantity: 90 tablet Refills: [address] capsule Commonly known as: Cymbalta Take 60 mg by mouth daily. 60 mg Refills: 0 empagliflozin 10 mg tablet Commonly known as: Jardiance Take 1 tablet by mouth daily. 10 mg Quantity: 90 tablet Refills: 1 erenumab-aooe 70 mg/mL Auto-Injector Commonly known as: Aimovig Autoinjector Inject subcutaneously every 30 days. Refills: 0 fluticasone propionate 50 mcg/actuation [place], Suspension Commonly known as: Flonase 1 spray by [...] nightly as needed. 10 mg Refills: [address] capsule Commonly known as: PriLOSEC Take 20 mg by mouth once as needed. Infrequent use 20 mg Refills: 0 prochlorperazine 5 mg tablet Commonly known as: Compazine Take 5 mg by mouth every 6 hours as needed for Nausea. 5 mg Refills: 0 rOPINIRole 1 mg tablet [...] mg tablet Commonly known as: Demadex Take 1 tablet by mouth daily. 20 mg Quantity: 90 tablet Refills: 3 Smoking Status at Discharge: Social History Tobacco Use Smoking Status Never Smokeless Tobacco Never Instructions Given to Patient at Discharge: There are no outpatient Patient Instructions on file for this admission. General Instructions None Future Appointments and Orders Future Appointments and Orders Future Appointments Provider Department Dept Phone 05/10/2023 9:40 AM Jaspreet Kinsey MD Cardiology at [facility]rive at: [facility] [address] [phone] 09/21/2023 3:00 PM Jaspreet Kinsey MD Cardiology at [facility] at: [facility] [address] [phone] Discharge References/Attachments None Greater than 30 minutes was spent on this discharge including documentation, [id number] time withthe patient, patient education, telephone order dispatcher, coordination with pharmacy and other patient care. documented in this encounter Discharge Instructions * Patient Instructions* Eufemia Copeland MD - 04/20/2023 7:59 AM EST You were hospitalized for evaluation and management of your chest pain. Your blood tests showed evidence of a low grade heart injury, though not due to a blockage of one of your heart arteries. We did check your heart function by way of echocardiogram (ultrasound of the heart), which showed overall normal heart pump function, however with regional wall motion abnormalities. You underwent a heart catheterization which showed non-obstructive coronary artery disease You were started on amlodipine to help with anginal pain. We have also done a cardiac MRI which wasconcerning for sarcoidosis. You will need additional PET CT scan for confirming diagnosis You were provided with a supply of sublingual nitroglycerin. Keep it with you at all times. If you have angina symptoms, such as chest pain or pressure, sit down and rest. Take the first dose of nitroglycerin and let it melt under your tongue. Please check your BP before AND after administering your first dose of nitroglycerin. Do not take if your SBP is <90 as this medication can lower your BP further. If symptoms go away, do not take any additional. If your symptoms get worse or are not getting better within 5 minutes, take a second nitro tab and call 911 right away. Stay on the phone. The emergency water operator will tell you what to do. Nitroglycerin is an emergency use medication. If you are taking this more than once in a week please alert your provider. Nitroglycerin in the original bottle is good for 1 year once the bottle is opened or until the date on the bottle is not used. If the bottom of the bottle is obscured by powder,or the label falls of discard the nitroglycerin and get a new bottle. You may resume light activity such as walking after your discharge. Do not do any strenuous activity for the first week after your catheterization, including no lifting anything over 10 lbs. This is to help protect your cardiac cath access site and to continue to let it heal properly. You may shower, but do not submerge your cardiac cath access site in water for 1 week (no tubs, hot tubs, lakes, or pools). Call your doctor if: Chest pain, dyspnea, pain or swelling in legs occurs, or for weight gain of 2 pounds overnight or 5pounds in 5 days. If you have non-emergent questions, prior to your follow-up visit call: Wednesday-Wednesday between the hours of 8AM-5PM please call the Cardiology Clinic [phone] to speak with a nurse. All other hours please call the Hospital Camera Engineer [phone] and ask to speak to the health occupations teacher on-call. Return to work: One week Follow up Appointments: Doctor Where Phone # Date Time PCP [address] [place] [address] 04/28/2023 7:30 [address] Kinsey [facility] A 05/10/2023 9:40 AM * Attachments The following attachments cannot be sent through Care Everywhere. * Coronary Angiogram: Post-op ([place]an) documented in this encounter Medications at Time [...] nightly as needed. empagliflozin (Jardiance) 10 mg TabletIndications:Customer Care Manager neal heart failure with preserved ejection fraction Take 1 tablet by mouth daily. 90 tablet 1 06/11/2021 rOPINIRole (Requip) 1 mg Tablet Take 2 mg by mouth 2 times daily. 07/16/2020 loratadine (Claritin) 10 mg Tablet Take 10 mg by mouth daily as needed. fluticasone propionate (FLONASE) 50 mcg/actuation [place], Suspension 1 spray by Each Nare route [...] Nausea. 05/10/2023 documented as of this encounter Progress Notes * Charity Jackson RN - 04/22/2023 5:44 PM EST Patient is 53 year old female. Patient A&0x4, VSS, and no complaint of chest pain or SOB. Patient on RA O2. Safety checks performed every 2 hours. Questions and concerns addressed. Patient showing no signs of distress and is subjectively comfortable and in no pain. Bed in lowest position, call lombardo in reach, environment surveillance provided. Patient discharged - questions and concerns addressed. AVS reviewed with pt, pt wheeled to d/c [facility]. I agree with the information in this note - Charity Jackson RN, BSN * Dixie Patterson - 04/22/2023 4:10 PM EST Transportation for discharge was scheduled and confirmed through [employer] transportation service. [employer] driving service will have a car here at entrance #2 (inpatient visitor entrance) at ~5:15pm to bring her home. OCM Managers aware of transportation or medication requirements for discharge. * Eufemia Copeland MD - 04/22/2023 8:01 AM EST Images from the original note were not included. CARDIOLOGY APP1 - [facility] DAILY PROGRESS NOTE Page [phone] to reach a provider 28/09 Admit Date: 04/16/2023 Encounter Date April 22, 2023 Anticipated Discharge Date: 04/22/2023 Hospital Day: 6 Active Hospital Problems Diagnosis NSTEMI (non-ST elevated myocardial infarction) Resolved Hospital Problems No resolved problems to display. 24 Hour Events/Subjective: -NAEON. -cMRI suggested of cardiac sarcoid. PET scan order to assess for sarcoid activity and direct tx; radiology scheduling and started low carb diet for scan. -Progressing cough. Lower edema improved w/ additional torsemide dose. - Patient reporting intermittent episodes hot flashes. No exacerbating factors identified. Spontaneously improves. Occurs ~1-2x/day - Denies further episodes of angina. Medications: Scheduled Meds: amLODIPine 2.5 mg Oral Daily atorvastatin 40 mg Oral QPM apixaban 5 mg Oral BID DULoxetine DR 60 mg Oral Daily gabapentin 600 mg Oral Nightly pantoprazole EC 40 mg Oral Daily spironolactone 25 mg Oral Daily topiramate 100 mg Oral Nightly torsemide 20 mg Oral Daily sodium chloride 0.9 % (flush) 5 mL Intravenous BID rOPINIRole 2 mg Oral BID Continuous Infusions: PRN Meds:.atropine, acetaminophen, loratadine, sodium chloride 0.9 % (flush), lidocaine, nitroGLYcerin Objective: Last value Range last 24 hrs Temp: 36.5 ??C (97.7 ??F) Temp: [36.5 ??C (97.7 ??F)-36.8 ??C (98.2 ??F)] Heart Rate: 53 Heart Rate: [53-58] BP: 107/69 BP: (104-118)/(57-69) Resp: 16 Resp: [15-20] SpO2: 98 % SpO2: [97 %-100 %] Height: 160 cm (5' 3) Weight: 98.5 kg (217 lb 1.6 oz) BMI (Calculated): 37.69 BMI Classification: Obese Admit weight: 99.61 kg Patient Vitals for the past 168 hrs: Weight 04/22/23 0534 98.5 kg (217 lb 1.6 oz) 04/21/23 0608 99.1 kg (218 lb 6.4 oz) 04/20/23 0608 98.7 kg (217 lb 9.6 oz) 04/19/23 0612 97.2 kg (214 lb 3.2 oz) 04/18/23 0500 98.4 kg (217 lb) 04/17/23 0500 98.4 kg (217 lb 0.3 oz) 04/16/23 2321 99.6 kg (219 lb 9.6 oz) Intake/Output Summary (Last 24 hours) at 04/22/2023 0801 Last data filed at 04/22/2023 0432 Gross per 24 hour Intake 1200 ml Output 2300 ml Net -1100 ml Physical Exam: Physical Exam Constitutional: General: She is not in acute distress. Appearance: She is well-developed. HENT: Head: Normocephalic and atraumatic. Nose: Nose normal. Eyes: General: Right eye: No discharge. Left eye: No discharge. Conjunctiva/sclera: Conjunctivae normal. Neck: Vascular: No JVD. Cardiovascular: Rate and Rhythm: Normal rate and regular rhythm. Heart sounds: Normal heart sounds. No murmur heard. No friction rub. No gallop. Pulmonary: Effort: Pulmonary effort is normal. Breath sounds: Normal breath sounds. No wheezing or rales. Abdominal: General: Bowel sounds are normal. There is no distension. Palpations: Abdomen is soft. Tenderness: There is no abdominal tenderness. There is no guarding. Musculoskeletal: Cervical back: Neck supple. Right lower leg: No edema. Left lower leg: No edema. Comments: B/l trace edema at ankles Skin: General: Skin is warm and dry. Comments: R forearm with edema extending distally to phalanges. No numbness or parasthesia. Appearsimproved from prior Neurological: Mental Status: She is alert and oriented to person, place, and time. Psychiatric: Behavior: Behavior normal. Labs: Recent Labs 04/21/2333904/20/2331004/19/2323904/18/2320904/17/23 0333 WBC 7.1 6.6 7.5 6.7 7.4 HGB 14.4 14.2 14.8 15.2 14.8 HCT 43.0 42.7 45.5 44.9 44.3 PLATELET 221 231 240 233 233 MCV 93.7 93.0 93.6 91.1 92.5 Recent Labs 04/21/2333904/20/2331004/19/2323904/18/23 02104/17/23 0333 NA 138 139 139 143 141 CL 106 106 105 107 106 CO2 22 21* 20* 24 22 K 3.8 3.6 4.0 3.6 4.0 MAGNESIUM 0.90 0.91 0.97 1.02 0.99 PHOS -- -- -- -- 4.1 CALCIUM 9.2 9.3 9.5 9.2 9.4 BUN 20* 20* 22* 23* 19* CREATININE 1.14 1.05 1.11 1.18 1.19 Coags Recent Labs 04/17/23 0333 INR 1.2 PT 13.3* PTT 40* Cardiac Markers Recent Labs 04/20/23 1644 04/20/23 1347 04/20/23 1048 04/17/23 0643 04/17/23 0333 TROPONINTHS 26* 27* 24* 23* 24* PROBNP -- -- -- -- 867* Endocrine Recent Labs 04/18/23 0210 04/17/23 0333 02/08/23 2208 09/27/22 0307 09/26/22 1750 TSH -- 5.93* 4.00 -- 3.02 HA1C 5.6 -- -- 5.6 -- Recent Labs 04/18/23 021 CHLPL 173 TRIG 174 HDL 44 LDLCHOL 94 CHOLHDL 3.9 Recent Labs 04/17/23 1944 04/17/23332 GLUCOSE -- 89 POCGLU 128 -- Latest Reference Range & Units 02/09/23 03:55 04/17/23 03:33 Sed Rate 2 - 39 mm/hr 15 12 CRP <=4.9 mg/L <3.0 <3.0 OSH [facility] troponin ~500. Telemetry: I have personally reviewed and interpreted the telemetry from the last 24 hours. Resultsshow sinus bradycardia/sinus arrhythmia with HR 50s-60s, HR augments w/ activity, PVCs, 15 beat NSVT. Imaging: Reviewed Cardiac MRI 04/21/2023 Normal size of the left ventricle. Abnormal thinning in the left ventricular anterior wall and mild myocardial hypertrophy of the interventricular septum. There is abnormal enhancement in the left ventricular anterior wall which appears to be predominantly mid myocardial with some subendocardial sparing. In addition, there is patchy enhancement in the interventricular septum. Findings are most concerning for an infiltrative disease like sarcoidosis; less typical for amyloidosis or sequela of myocarditis. Hypokinesis of the left ventricular anterior wall. Low normal left ventricular ejection fraction of 55%. Dilated main pulmonary artery can be an indirect sign of pulmonary hypertension. Assessment & Plan: Loida Madrigal is a 53 y.o. female with h/o mild nonobstructive mid LAD ASCVD on CCTA 09/2022, remote cardiac catheterization 08/2019 with normal coronaries, SVT (AVNRT since 06/2021) s/p EPS and SVT ablation on 04/01/[address] Tovar, paroxysmal A-fib (diagnosed on 10/20/2022), HFpEF, PE on Eliquis, MARYLOU on CPAP, and restrictive lung disease secondary to obesity who presented to [facility] on 04/16 with chest pain responsive to SL NTG. Troponin ~500x2. Transfer[place] [facility] [place] Troponin at [facility], 24>23. Reports exertional chest pressure and dyspnea which had been progressing over the recent weeks and more pronounced over the days leading up to presentation. Some chest pain episodes with associated jaw and left arm discomfort along with nausea which sublingual nitroglycerin relieves. At times, chest discomfort with body position changes such as lying flat and deep inspiration along with orthopnea. Some of her discomforts are reproducible with palpitation. Abnormal troponin with flat trend similar to prior, EKG with nonspecific changes, elevated BNP, negative inflammatory markers. TTE 04/17 with progressing anterior wall motion abnormality, preserved EF, and no pericardial effusion. She underw ent [facility] on 04/18 which showed non-obstructive ASCVD. Initiated amlodipine for potential microvascular ds. Cardiac MRI 04/21 c/f sarcoidosis. 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 Most appropriate as inpt scan; radiology scheduling and low card diet started. Consider tx w/ steroids. Continue Lipitor 40 mg daily Started on amlodipine 2.5 mg daily for anti-anginal and potential microvascular ds Patient on torsemide 20 daily; additional tab prn. Cardiology consult team following. Telemetry #Hx of pAfib #Hx of AVNRT sp EPS and Ablation #sinus bradycardia #NSVT Continue home Eliquis 5 mg BID; temporarily held while on hep gtt leading up to cath and resumed 2/12 AM. Avoiding AV makayla agents w/ bradycardia. - EP consult once further along w/ cardiac sarcoidosis dx/work-up to consider ICD. # RUE edema; stable/improved right forearm edema/tender from antecubital fossa distally to phalanges w/o numbness or parasthesias, adial pulse present. RUE venous duplex with superficial vein thrombosis (chronic appearing) # Urinary discomfort- Reports straining with urination. Ucx with mixed elmer c/w mucosal contamination. Not treating with abx. # Hx of PE- Eliquis as above #MARYLOU- auto titrate CPAP ordered. # Migraine- uses home nurtec which is not on formulary and she does not have home med (if home med becomes available she would need to fill out release of liability form). other alternatives typically contain apap which she does not want due to adr jitteriness&weird w/ apap. Consider neurology if sig migraines occur Diet: Carb Control diet CHO counting level 1 High Protein DVT Prophylaxis: DOAC Code status: Attempt Cardiopulmonary Resuscitation - Inpatient Disposition: Discharge Location: AM-[facility] Basic Mobility Raw Score: 24 PT: OT: PCP JOCY rFanco [phone] Discussed with MD Kurt Ray PA-C APP1 pager [phone] 04/22/2023 CV HOSPITALIST ADDENDUM Date of Service: 04/22/2023 Date of Admission: 04/16/2023 Length of Stay Hospital Day 6 days Please see above note by Kurt Silveira PA for details of the patient history of presentation and data. I have interviewed and examined the patient independently and I concur with the assessment and plan as documented, with exceptions/additions/emphases as noted below. Please see separate discharge summary from today for further details. * Eufemia Copeland MD - 04/21/2023 6:10 PM EST CARDIOLOGY APP1 - [facility] DAILY PROGRESS NOTE Page [phone] to reach a provider 28/09 Admit Date: 04/16/2023 Encounter Date April 21, 2023 Anticipated Discharge Date: 04/22/2023 Hospital Day: 5 Active Hospital Problems Diagnosis NSTEMI (non-ST elevated myocardial infarction) Resolved Hospital Problems No resolved problems to display. 24 Hour Events/Subjective: - Patient reporting intermittent episodes hot flashes. No exacerbating factors identified. Spontaneously improves. Occurs ~1-2x/day - Denies any more additional episodes of chest pain today - reports increased ankle edema today Medications: Scheduled Meds: amLODIPine 2.5 mg Oral Daily atorvastatin 40 mg Oral QPM apixaban 5 mg Oral BID DULoxetine DR 60 mg Oral Daily gabapentin 600 mg Oral Nightly pantoprazole EC 40 mg Oral Daily spironolactone 25 mg Oral Daily topiramate 100 mg Oral Nightly torsemide 20 mg Oral Daily sodium chloride 0.9 % (flush) 5 mL Intravenous BID rOPINIRole 2 mg Oral BID Continuous Infusions: PRN Meds:.atropine, acetaminophen, loratadine, sodium chloride 0.9 % (flush), lidocaine, nitroGLYcerin Objective: Last value Range last 24 hrs Temp: 36.8 ??C (98.2 ??F) Temp: [35.7 ??C (96.3 ??F)-36.8 ??C (98.2 ??F)] Heart Rate: 55 Heart Rate: [48-62] BP: 116/63 BP: (102-118)/(56-83) Resp: 20 Resp: [12-20] SpO2: 97 % SpO2: [95 %-100 %] Height: 160 cm (5' 3) Weight: 99.1 kg (218 lb 6.4 oz) BMI (Calculated): 37.69 BMI Classification: Obese Admit weight: 99.61 kg Patient Vitals for the past 168 hrs: Weight 04/21/23 0608 99.1 kg (218 lb 6.4 oz) 04/20/23 0608 98.7 kg (217 lb 9.6 oz) 04/19/23 0612 97.2 kg (214 lb 3.2 oz) 04/18/23 0500 98.4 kg (217 lb) 04/17/23 0500 98.4 kg (217 lb 0.3 oz) 04/16/23 2321 99.6 kg (219 lb 9.6 oz) Intake/Output Summary (Last 24 hours) at 04/21/2023 1811 Last data filed at 04/21/2023 1700 Gross per 24 hour Intake 1700 ml Output 2480 ml Net -780 ml Physical Exam: Physical Exam Constitutional: General: She is not in acute distress. Appearance: She is well-developed. HENT: Head: Normocephalic and atraumatic. Nose: Nose normal. Eyes: General: Right eye: No discharge. Left eye: No discharge. Conjunctiva/sclera: Conjunctivae normal. Neck: Vascular: No JVD. Cardiovascular: Rate and Rhythm: Normal rate and regular rhythm. Heart sounds: Normal heart sounds. No murmur heard. No friction rub. No gallop. Pulmonary: Effort: Pulmonary effort is normal. Breath sounds: Normal breath sounds. No wheezing or rales. Abdominal: General: Bowel sounds are normal. There is no distension. Palpations: Abdomen is soft. Tenderness: There is no abdominal tenderness. There is no guarding. Musculoskeletal: Cervical back: Neck supple. Comments: BLE with 1+ edema at ankles Skin: General: Skin is warm and dry. Comments: R forearm with edema extending distally to phalanges. No numbness or parasthesia. Appearsimproved from prior Neurological: Mental Status: She is alert and oriented to person, place, and time. Psychiatric: Behavior: Behavior normal. Labs: Recent Labs 04/21/23 0340 04/20/23 0311 04/19/23 0240 04/18/23 0210 04/17/23 0333 WBC 7.1 6.6 7.5 6.7 7.4 HGB 14.4 14.2 14.8 15.2 14.8 HCT 43.0 42.7 45.5 44.9 44.3 PLATELET 221 231 240 233 233 MCV 93.7 93.0 93.6 91.1 92.5 Recent Labs 04/21/23 0340 04/20/23 0311 04/19/23 0240 04/18/23 0210 04/17/23 0333 NA 138 139 139 143 141 CL 106 106 105 107 106 CO2 22 21* 20* 24 22 K 3.8 3.6 4.0 3.6 4.0 MAGNESIUM 0.90 0.91 0.97 1.02 0.99 PHOS -- -- -- -- 4.1 CALCIUM 9.2 9.3 9.5 9.2 9.4 BUN 20* 20* 22* 23* 19* CREATININE 1.14 1.05 1.11 1.18 1.19 Coags Recent Labs 04/17/23 0333 INR 1.2 PT 13.3* PTT 40* Cardiac Markers Recent Labs 04/20/23 1644 04/20/23 1347 04/20/23 1048 04/17/23 0643 04/17/23 0333 TROPONINTHS 26* 27* 24* 23* 24* PROBNP -- -- -- -- 867* Endocrine Recent Labs 04/18/23 0210 04/17/23 0333 02/08/23 2208 09/27/22 0307 09/26/22 1750 TSH -- 5.93* 4.00 -- 3.02 HA1C 5.6 -- -- 5.6 -- Recent Labs 04/18/23 0210 CHLPL 173 TRIG 174 HDL 44 LDLCHOL 94 CHOLHDL 3.9 Recent Labs 04/17/23 1944 04/17/23 0333 GLUCOSE -- 89 POCGLU 128 -- Latest Reference Range & Units 02/09/23 03:55 04/17/23 03:33 Sed Rate 2 - 39 mm/hr 15 12 CRP <=4.9 mg/L <3.0 <3.0 OSH [facility] troponin ~500. Telemetry: I have personally reviewed and interpreted the telemetry from the last 24 hours. Resultsshow sinus bradycardia/sinus arrhythmia with HR 50s-60s, PVCs, heart rate climbs to 70s with activity.. Imaging: reviewed Assessment & Plan: Loida Madrigal is a 53 y.o. female with h/o mild nonobstructive mid LAD ASCVD on CCTA 09/2022, remote cardiac catheterization 08/2019 with normal coronaries, SVT (AVNRT since 06/2021) s/p EPS and SVT ablation on 04/01/[address] Tovar, paroxysmal A-fib (diagnosed on 10/20/2022), HFpEF, PE on Eliquis, MARYLOU on CPAP, and restrictive lung disease secondary to obesity who presented to [facility] on 04/16 with chest pain responsive to SL NTG. Troponin ~500x2. Transferred to [facility] [place]. Troponin at [facility], 24>23. Reports exertional chest pressure and dyspnea which had been progressing over the recent weeks and more pronounced over the days leading up to presentation. Some chest pain episodes with associated jaw and left arm discomfort along with nausea which sublingual nitroglycerin relieves. At times, chest discomfort with body position changes such as lying flat and deep inspiration along with orthopnea. Some of her discomforts are reproducible with palpitation. Abnormal troponin with flat trend similar to prior, EKG with nonspecific changes, elevated BNP, negative inflammatory markers. TTE 04/17 with progressing anterior wall motion abnormality, preserved EF, and no pericardial effusion. She underw ent [facility] on 04/18 which showed non-obstructive ASCVD. Unclear etiology of presentation. Low suspicionfor pericarditis given negative inflammatory markers, no effusion on TTE, EKG changes not consistent with pericarditis. ?microvascular dysfunction. Formal consult to cardiology to help guide further management. # Chest pain: undifferentiated # Anterior wall motion abnormality # NSTEMI type I versus II #Acute on chronic HFpEF Telemetry TTE with pLVEF, progressing anterior WMAs S/p LHC 04/18 with non-obstructive ASCVD IV heparin and ASA stopped Continue Lipitor 40 mg daily Started on amlodipine 2.5 mg daily for anti-anginal and potential microvascular dz Patient on torsemide 20 daily. Will give additional PM dose tonight for bilat ankle swelling Formal general cardiology consult cMRI today #Hx of pAfib #Hx of AVNRT sp EPS and Ablation Resume Eliquis 5 mg BID 2 AM # RUE edema Right forearm edematous and tender extending from antecubital fossa distally to phalanges No numbness or parasthesias Radial pulse present RUE venous duplex with superficial vein thrombosis (chronic appearing) # Urinary discomfort Reports straining with urination UA ordered; Ucx with mixed elmer c/w mucosal contamination Will hold off on abx # Hx of PE- Eliquis as above #MARYLOU- auto titrate CPAP ordered. # Migraine- uses home nurtec which is not on formulary and she does not have home med (if home med becomes available she would need to fill out release of liability form). other alternatives typically contain apap which she does not want due to adr jitteriness&weird w/ apap. Consider neurology if sig migraines occur Diet: Daily Healthy Menu Choices/Cardiac diet ([facility]iet) 2 GM NA DVT Prophylaxis: DOAC Code status: Attempt Cardiopulmonary Resuscitation - Inpatient Disposition: Discharge Location: [facility] Basic Mobility Raw Score: 22 PT: OT: PCP JOCY Franco [phone] * Eufemia Copeland MD - 04/20/2023 4:34 PM EST CARDIOLOGY APP1 - [facility] DAILY PROGRESS NOTE Page [phone] to reach a provider 28/09 Admit Date: 04/16/2023 Encounter Date April 20, 2023 Anticipated Discharge Date: 04/20/2023 Hospital Day: 4 Active Hospital Problems Diagnosis NSTEMI (non-ST elevated myocardial infarction) Resolved Hospital Problems No resolved problems to display. 24 Hour Events/Subjective: - 1 episode C today when up walking. +Radiating down L arm and jaw. +nausea. Trending trop to peak - plan for CMR tomorrow - denies SOB, dizziness. Medications: Scheduled Meds: amLODIPine 2.5 mg Oral Daily atorvastatin 40 mg Oral QPM apixaban 5 mg Oral BID DULoxetine DR 60 mg Oral Daily gabapentin 600 mg Oral Nightly pantoprazole EC 40 mg Oral Daily spironolactone 25 mg Oral Daily topiramate 100 mg Oral Nightly torsemide 20 mg Oral Daily sodium chloride 0.9 % (flush) 5 mL Intravenous BID rOPINIRole 2 mg Oral BID Continuous Infusions: PRN Meds:.atropine, acetaminophen, loratadine, sodium chloride 0.9 % (flush), lidocaine, nitroGLYcerin Objective: Last value Range last 24 hrs Temp: 36.7 ??C (98 ??F) Temp: [36.6 ??C (97.8 ??F)-37 ??C (98.6 ??F)] Heart Rate: 55 Heart Rate: [52-59] BP: 124/68 BP: (106-129)/(50-84) Resp: 17 Resp: [11-17] SpO2: 97 % SpO2: [96 %-99 %] Height: 160 cm (5' 3) Weight: 98.7 kg (217 lb 9.6 oz) BMI (Calculated): 37.69 BMI Classification: Obese Admit weight: 99.61 kg Patient Vitals for the past 168 hrs: Weight 04/20/23 0608 98.7 kg (217 lb 9.6 oz) 04/19/23 0612 97.2 kg (214 lb 3.2 oz) 04/18/23 0500 98.4 kg (217 lb) 04/17/23 0500 98.4 kg (217 lb 0.3 oz) 04/16/23 2321 99.6 kg (219 lb 9.6 oz) Intake/Output Summary (Last 24 hours) at 04/20/2023 1635 Last data filed at 04/20/2023 1145 Gross per 24 hour Intake 846 ml Output 1053 ml Net -207 ml Physical Exam: Physical Exam Constitutional: General: She is not in acute distress. Appearance: She is well-developed. HENT: Head: Normocephalic and atraumatic. Nose: Nose normal. Eyes: General: Right eye: No discharge. Left eye: No discharge. Conjunctiva/sclera: Conjunctivae normal. Neck: Vascular: No JVD. Cardiovascular: Rate and Rhythm: Normal rate and regular rhythm. Heart sounds: Normal heart sounds. No murmur heard. No friction rub. No gallop. Pulmonary: Effort: Pulmonary effort is normal. Breath sounds: Normal breath sounds. No wheezing or rales. Abdominal: General: Bowel sounds are normal. There is no distension. Palpations: Abdomen is soft. Tenderness: There is no abdominal tenderness. There is no guarding. Musculoskeletal: Cervical back: Neck supple. Comments: Anterior chest reproducible discomfort with palpation Skin: General: Skin is warm and dry. Comments: R forearm with edema extending distally to phalanges. No numbness or parasthesia. Mild tenderness noted. Neurological: Mental Status: She is alert and oriented to person, place, and time. Psychiatric: Behavior: Behavior normal. Labs: Recent Labs 04/20/2331004/19/2323904/18/2320904/17/23 0333 WBC 6.6 7.5 6.7 7.4 HGB 14.2 14.8 15.2 14.8 HCT 42.7 45.5 44.9 44.3 PLATELET 231 240 233 233 MCV 93.0 93.6 91.1 92.5 Recent Labs 04/20/2331004/19/23 0240 04/18/23 0210 04/17/23 0333 NA 139 139 143 141 CL 106 105 107 106 CO2 21* 20* 24 22 K 3.6 4.0 3.6 4.0 MAGNESIUM 0.91 0.97 1.02 0.99 PHOS -- -- -- 4.1 CALCIUM 9.3 9.5 9.2 9.4 BUN 20* 22* 23* 19* CREATININE 1.05 1.11 1.18 1.19 Coags Recent Labs 04/17/23 033 INR 1.2 PT 13.3* PTT 40* Cardiac Markers Recent Labs 04/20/23 1347 04/20/23 1048 04/17/23 0643 04/17/23332 TROPONINTHS 27* 24* 23* 24* PROBNP -- -- -- 867* Endocrine Recent Labs 04/18/23 0210 04/17/23 0333 02/08/23 2208 09/27/22 0307 09/26/22 1750 TSH -- 5.93* 4.00 -- 3.02 HA1C 5.6 -- -- 5.6 -- Recent Labs 04/18/23209 CHLPL 173 TRIG 174 HDL 44 LDLCHOL 94 CHOLHDL 3.9 Recent Labs 04/17/23 1944 04/17/23332 GLUCOSE -- 89 POCGLU 128 -- Latest Reference Range & Units 02/09/23 03:55 04/17/23 03:33 Sed Rate 2 - 39 mm/hr 15 12 CRP <=4.9 mg/L <3.0 <3.0 OSH [facility] troponin ~500. Telemetry: I have personally reviewed and interpreted the telemetry from the last 24 hours. Resultsshow sinus bradycardia/sinus arrhythmia with HR 50s, PVCs, heart rate climbs to 70s with activity.. Imaging: reviewed Assessment & Plan: Loida Madrigal is a 53 y.o. female with h/o mild nonobstructive mid LAD ASCVD on CCTA 09/2022, remote cardiac catheterization 08/2019 with normal coronaries, SVT (AVNRT since 06/2021) s/p EPS and SVT ablation on 04/01/[address] Tovar, paroxysmal A-fib (diagnosed on 10/20/2022), HFpEF, PE on Eliquis, MARYLOU on CPAP, and restrictive lung disease secondary to obesity who presented to [facility] on 04/16 with chest pain responsive to SL NTG. Troponin ~500x2. Transferred to [facility] [place] further [place]. Troponin at [facility], 24>23. Reports exertional chest pressure and dyspnea which had been progressing over the recent weeks and more pronounced over the days leading up to presentation. Some chest pain episodes with associated jaw and left arm discomfort along with nausea which sublingual nitroglycerin relieves. At times, chest discomfort with body position changes such as lying flat and deep inspiration along with orthopnea. Some of her discomforts are reproducible with palpitation. Abnormal troponin with flat trend similar to prior, EKG with nonspecific changes, elevated BNP, negative inflammatory markers. TTE 04/17 with progressing anterior wall motion abnormality, preserved EF, and no pericardial effusion. She underw ent [facility] on 04/18 which showed non-obstructive ASCVD. Unclear etiology of presentation. Low suspicionfor pericarditis given negative inflammatory markers, no effusion on TTE, EKG changes not consistent with pericarditis. ?microvascular dysfunction. Formal consult to cardiology to help guide further management. # Chest pain: undifferentiated # Anterior wall motion abnormality # NSTEMI type I versus II #Acute on chronic HFpEF Telemetry TTE with pLVEF, progressing anterior WMAs S/p LHC 04/18 with non-obstructive ASCVD IV heparin and ASA stopped Continue Lipitor 40 mg daily Started on amlodipine 2.5 mg daily for anti-anginal and potential microvascular dz Formal general cardiology consult cMRI likely tomorrow #Hx of pAfib #Hx of AVNRT sp EPS and Ablation Resume Eliquis 5 mg BID 04/19 AM # RUE edema Right forearm edematous and tender extending from antecubital fossa distally to phalanges No numbness or parasthesias Radial pulse present RUE venous duplex with superficial vein thrombosis (chronic appearing) # Urinary discomfort Reports straining with urination UA ordered; Ucx with mixed elmer c/w mucosal contamination Will hold off on abx # Hx of PE- Eliquis as above #MARYLOU- auto titrate CPAP ordered. # Migraine- uses home nurtec which is not on formulary and she does not have home med (if home med becomes available she would need to fill out release of liability form). other alternatives typically contain apap which she does not want due to adr jitteriness&weird w/ apap. Consider neurology if sig migraines occur Diet: Daily Healthy Menu Choices/Cardiac diet ([facility]Diet) 2 GM NA; 2000 mL FLUID DVT Prophylaxis: DOAC Code status: Attempt Cardiopulmonary Resuscitation - Inpatient Disposition: Discharge Location: [facility] Basic Mobility Raw Score: 24 PT: OT: PCP JOCY Franco [phone] * Carrol La PA - 04/19/2023 12:32 PM EST CARDIOLOGY APP1 - [facility] DAILY PROGRESS NOTE Page [phone] to reach a provider 28/09 Admit Date: 04/16/2023 Encounter Date April 19, 2023 Anticipated Discharge Date: 04/20/2023 Hospital Day: 3 Active Hospital Problems Diagnosis NSTEMI (non-ST elevated myocardial infarction) Resolved Hospital Problems No resolved problems to display. 24 Hour Events/Subjective: Underwent LHC yesterday which showed non-obstructive ASCVD Formal cardiology consult to help assist with further management Reports right forearm swelling extending to fingers. No numbness, parasthesias. Mild tenderness. Noerythema. Arterial duplex ordered. Right IV functioning ok. Reports chest discomfort while lying flat. Had Cp during cath procedure. Reporting urinary discomfort; UA ordered Worsening cough with hot flashes; viral panel ordered Medications: Scheduled Meds: amLODIPine 2.5 mg Oral Daily atorvastatin 40 mg Oral QPM apixaban 5 mg Oral BID DULoxetine DR 60 mg Oral Daily gabapentin 600 mg Oral Nightly pantoprazole EC 40 mg Oral Daily spironolactone 25 mg Oral Daily topiramate 100 mg Oral Nightly torsemide 20 mg Oral Daily sodium chloride 0.9 % (flush) 5 mL Intravenous BID rOPINIRole 2 mg Oral BID aspirin 81 mg Oral Daily Continuous Infusions: PRN Meds:.atropine, acetaminophen, loratadine, sodium chloride 0.9 % (flush), lidocaine, nitroGLYcerin Objective: Last value Range last 24 hrs Temp: 36.7 ??C (98.1 ??F) Temp: [35.6 ??C (96 ??F)-36.8 ??C (98.3 ??F)] Heart Rate: 54 Heart Rate: [44-76] BP: 104/57 BP: (92-118)/(41-92) Resp: 17 Resp: [15-17] SpO2: 98 % SpO2: [95 %-98 %] Height: 160 cm (5' 3) Weight: 97.2 kg (214 lb 3.2 oz) BMI (Calculated): 37.69 BMI Classification: Obese Admit weight: 99.61 kg Patient Vitals for the past 168 hrs: Weight 04/19/23 0612 97.2 kg (214 lb 3.2 oz) 04/18/23 0500 98.4 kg (217 lb) 04/17/23 0500 98.4 kg (217 lb 0.3 oz) 04/16/23 2321 99.6 kg (219 lb 9.6 oz) Intake/Output Summary (Last 24 hours) at 04/19/2023 1232 Last data filed at 04/19/2023 1200 Gross per 24 hour Intake 680 ml Output 1500 ml Net -820 ml Physical Exam: Physical Exam Constitutional: General: She is not in acute distress. Appearance: She is well-developed. HENT: Head: Normocephalic and atraumatic. Nose: Nose normal. Eyes: General: Right eye: No discharge. Left eye: No discharge. Conjunctiva/sclera: Conjunctivae normal. Neck: Vascular: No JVD. Cardiovascular: Rate and Rhythm: Normal rate and regular rhythm. Heart sounds: Normal heart sounds. No murmur heard. No friction rub. No gallop. Pulmonary: Effort: Pulmonary effort is normal. Breath sounds: Normal breath sounds. No wheezing or rales. Abdominal: General: Bowel sounds are normal. There is no distension. Palpations: Abdomen is soft. Tenderness: There is no abdominal tenderness. There is no guarding. Musculoskeletal: Cervical back: Neck supple. Comments: Anterior chest reproducible discomfort with palpation Skin: General: Skin is warm and dry. Comments: R forearm with edema extending distally to phalanges. No numbness or parasthesia. Mild tenderness noted. Neurological: Mental Status: She is alert and oriented to person, place, and time. Psychiatric: Behavior: Behavior normal. Labs: Recent Labs 04/19/23 0240 04/18/23 0210 04/17/23 0333 WBC 7.5 6.7 7.4 HGB 14.8 15.2 14.8 HCT 45.5 44.9 44.3 PLATELET 240 233 233 MCV 93.6 91.1 92.5 Recent Labs 04/19/23 0240 04/18/23 0210 04/17/23 0333 NA 139 143 141 CL 105 107 106 CO2 20* 24 22 K 4.0 3.6 4.0 MAGNESIUM 0.97 1.02 0.99 PHOS -- -- 4.1 CALCIUM 9.5 9.2 9.4 BUN 22* 23* 19* CREATININE 1.11 1.18 1.19 Coags Recent Labs 04/17/23 0333 INR 1.2 PT 13.3* PTT 40* Cardiac Markers Recent Labs 04/17/23 0643 04/17/23332 TROPONINTHS * 24* PROBNP -- 867* Endocrine Recent Labs 04/18/23 0210 04/17/23 0333 02/08/23 2208 09/27/22 0307 09/26/22 1750 TSH -- 5.93* 4.00 -- 3.02 HA1C 5.6 -- -- 5.6 -- Recent Labs 04/18/23209 CHLPL 173 TRIG 174 HDL 44 LDLCHOL 94 CHOLHDL 3.9 Recent Labs 04/17/23 1944 04/17/23332 GLUCOSE -- 89 POCGLU 128 -- Latest Reference Range & Units 02/09/23 03:55 04/17/23 03:33 Sed Rate 2 - 39 mm/hr 15 12 CRP <=4.9 mg/L <3.0 <3.0 OSH [facility] troponin ~500. EKG: Sinus bradycardia, 47 bpm, PAC, possible left atrial enlargement, possible lateral infarct, QTc 511. Telemetry: I have personally reviewed and interpreted the telemetry from the last 24 hours. Resultsshow sinus bradycardia with HR 50s, PVCs, heart rate climbs to 70s with activity.. Imaging: [facility] 04/18/23 Conclusions: * Nonobstructive coronary artery disease TTE 04/17/2023 Left ventricle is normal in size and wall thickness. Normal global systolic function with regional wall motion abnormalities as ascribed on the anterior/anterolateral aspect. Right ventricle is normal in size and systolic function. No significant cardiac valve findings. No pericardial effusion. Compared to prior study dated 02/09/2023, the extent of the anterior abnormal wall motion has increased. CTA PE protocol at [facility]- no PE but showed small pericardial effusion and some GG opacities. Prior CV studies Coronary CTA 09/24/2022 1. Coronary calcium score of 182 . 98%-ile rank based on age, race/ethnicity, and gender. 2. CAD-RADS 2. Mild mid-LAD stenosis (25-49%) secondary to calcific plaque. Calcium blooming may overestimate degree of stenosis. Otherwise, minimal diffuse atherosclerotic changes. 3. No evidence of acute aortopathy. 4. No acute pulmonary findings. [facility] 06/09/2021-RA 4, PA 38/15 (24) PCWP 11, CO/CI 3.14/1.6. [facility] 08/30/2019-normal coronary arteries. Assessment & Plan: Loida Madrigal is a 53 y.o. female with h/o mild nonobstructive mid LAD ASCVD on CCTA 09/2022, remote cardiac catheterization 08/2019 with normal coronaries, SVT (AVNRT since 06/2021) s/p EPS and SVT ablation on 04/01/[address] Tovar, paroxysmal A-fib (diagnosed on 10/20/2022), HFpEF, PE on Eliquis, MARYLOU on CPAP, and restrictive lung disease secondary to obesity who presented to [facility] on 04/16 with chest pain responsive to SL NTG. Troponin ~500x2. Transferred to [facility] for further evaluation. Troponin at [facility], 24>23. Reports exertional chest pressure and dyspnea which had been progressing over the recent weeks and more pronounced over the days leading up to presentation. Some chest pain episodes with associated jaw and left arm discomfort along with nausea which sublingual nitroglycerin relieves. At times, chest discomfort with body position changes such as lying flat and deep inspiration along with orthopnea. Some of her discomforts are reproducible with palpitation. Abnormal troponin with flat trend similar to prior, EKG with nonspecific changes, elevated BNP, negative inflammatory markers. TTE 04/17 with progressing anterior wall motion abnormality, preserved EF, and no pericardial effusion. She underw ent [facility] on 04/18 which showed non-obstructive ASCVD. Unclear etiology of presentation. Low suspicionfor pericarditis given negative inflammatory markers, no effusion on TTE, EKG changes not consistent with pericarditis. ?microvascular dysfunction. Formal consult to cardiology to help guide further management. # Chest pain: undifferentiated # Anterior wall motion abnormality # NSTEMI type I versus II #Acute on chronic HFpEF Telemetry TTE with pLVEF, progressing anterior WMAs S/p C 04/18 with non-obstructive ASCVD IV heparin and ASA stopped Continue Lipitor 40 mg daily Started on amlodipine 2.5 mg daily for anti-anginal and potential microvascular dz Formal general cardiology consult Consider cMRI and/or PET stress #Hx of pAfib #Hx of AVNRT sp EPS and Ablation Resume Eliquis 5 mg BID 2/12 AM # RUE edema Right forearm edematous and tender extending from antecubital fossa distally to phalanges No numbness or parasthesias Radial pulse present Arterial duplex ordered # Urinary discomfort Reports straining with urination UA ordered # Hx of PE- Eliquis as above #MARYLOU- auto titrate CPAP ordered. # Migraine- uses home nurtec which is not on formulary and she does not have home med (if home med becomes available she would need to fill out release of liability form). other alternatives typically contain apap which she does not want due to adr jitteriness&weird w/ apap. Consider neurology curbside if significant migraine continues. Diet: Daily Healthy Menu Choices/Cardiac diet ([facility]-Diet) 2 GM NA; 2000 mL FLUID DVT Prophylaxis: DOAC Code status: Attempt Cardiopulmonary Resuscitation - Inpatient Disposition: Discharge Location: AM[facility] Basic Mobility Raw Score: 24 PT: OT: PCP JOCY Franco [phone] Discussed with MD Carrol Aly PA-C APP1 Pager: [phone] 04/19/2023 IE * Nikkie Lew RCP - 04/18/2023 10:10 PM EST Respiratory Therapy NIV Note NIV Settings: NIV Mode: CPAP PEEP/CPAP (cm H2O): 16 cm H20 (16-22 home settings) FiO2 (%): 21 % NIV Measurements: Resp: 16 Mve: 7.6 Vte: 10 SpO2: 98 % Skin Assessment: NIV Skin Assessment WDL: WDL Mepilex Applied: No Assessment: Pt compliant with nocturnal CPAP Plan: Continue CPAP for nocturnal use as tolerated NIKKIE LEW RCP IE * Kurt Silveira PA - 04/18/2023 8:27 AM EST Images from the original note were not included. CARDIOLOGY APP1 - [facility] DAILY PROGRESS NOTE Page [phone] to reach a provider 28/09 Admit Date: 04/16/2023 Encounter Date April 18, 2023 Anticipated Discharge Date: 04/20/2023 Hospital Day: 2 Active Hospital Problems Diagnosis NSTEMI (non-ST elevated myocardial infarction) Resolved Hospital Problems No resolved problems to display. 24 Hour Events/Subjective: NAEON Migraine with prior history of open requesting home nurtec; reviewing with pharmacy availability/suitability. Denies further chest discomfort or breathlessness. Awaiting cardiac catheterization potentially today if [employer] availability allows.She remains on ACS therapies. Medications: Scheduled Meds: potassium chloride ER 40 mEq Oral Once atorvastatin 80 mg Oral QPM DULoxetine DR 60 mg Oral Daily gabapentin 600 mg Oral Nightly pantoprazole EC 40 mg Oral Daily spironolactone 25 mg Oral Daily topiramate 100 mg Oral Nightly torsemide 20 mg Oral Daily sodium chloride 0.9 % (flush) 5 mL Intravenous BID rOPINIRole 2 mg Oral BID aspirin 81 mg Oral Daily Continuous Infusions: heparin (porcine) infusion 600 Units/hr (04/18/23 0404) PRN Meds:.loratadine, sodium chloride 0.9 % (flush), lidocaine, nitroGLYcerin, heparin (porcine) infusion AND heparin (porcine) Objective: Last value Range last 24 hrs Temp: 36.6 ??C (97.8 ??F) Temp: [36.5 ??C (97.7 ??F)-36.8 ??C (98.2 ??F)] Heart Rate: 53 Heart Rate: [53-64] BP: 101/49 BP: (101-123)/(49-62) Resp: 18 Resp: [16-18] SpO2: 97 % SpO2: [94 %-98 %] Height: 160 cm (5' 3) Weight: 98.4 kg (217 lb) BMI (Calculated): 37.69 BMI Classification: Obese Admit weight: 99.61 kg Patient Vitals for the past 168 hrs: Weight 04/18/23 0500 98.4 kg (217 lb) 04/17/23 0500 98.4 kg (217 lb 0.3 oz) 04/16/23 2321 99.6 kg (219 lb 9.6 oz) Intake/Output Summary (Last 24 hours) at 04/18/2023 0827 Last data filed at 04/18/2023 0600 Gross per 24 hour Intake 888.1 ml Output 950 ml Net -61.9 ml Physical Exam: Physical Exam Constitutional: General: She is not in acute distress. Appearance: She is well-developed. HENT: Head: Normocephalic and atraumatic. Nose: Nose normal. Eyes: General: Right eye: No discharge. Left eye: No discharge. Conjunctiva/sclera: Conjunctivae normal. Neck: Vascular: No JVD. Cardiovascular: Rate and Rhythm: Normal rate and regular rhythm. Heart sounds: Normal heart sounds. No murmur heard. No friction rub. No gallop. Pulmonary: Effort: Pulmonary effort is normal. Breath sounds: Normal breath sounds. No wheezing or rales. Abdominal: General: Bowel sounds are normal. There is no distension. Palpations: Abdomen is soft. Tenderness: There is no abdominal tenderness. There is no guarding. Musculoskeletal: Cervical back: Neck supple. Comments: Anterior chest reproducible discomfort with palpation Skin: General: Skin is warm and dry. Neurological: Mental Status: She is alert and oriented to person, place, and time. Psychiatric: Behavior: Behavior normal. Labs: Recent Labs 04/18/2320904/17/23332 WBC 6.7 7.4 HGB 15.2 14.8 HCT 44.9 44.3 PLATELET 233 233 MCV 91.1 92.5 Recent Labs 04/18/2320904/17/23332 NA 143 141 CL 107 106 CO2 24 22 K 3.6 4.0 MAGNESIUM 1.02 0.99 PHOS -- 4.1 CALCIUM 9.2 9.4 BUN 23* 19* CREATININE 1.18 1.19 Coags Recent Labs 04/17/23332 INR 1.2 PT 13.3* PTT 40* Cardiac Markers Recent Labs 04/17/23 0643 04/17/23 033 TROPONINTHS 23* 24* PROBNP -- 867* Endocrine Recent Labs 04/18/23 02104/17/23 0333 02/08/23 2208 09/27/22 0307 09/26/22 1750 TSH -- 5.93* 4.00 -- 3.02 HA1C 5.6 -- -- 5.6 -- Recent Labs 04/18/23 0210 CHLPL 173 TRIG 174 HDL 44 LDLCHOL 94 CHOLHDL 3.9 Recent Labs 04/17/23 1944 04/17/23 0333 GLUCOSE -- 89 POCGLU 128 -- Latest Reference Range & Units 02/09/23 03:55 04/17/23 03:33 Sed Rate 2 - 39 mm/hr 15 12 CRP <=4.9 mg/L <3.0 <3.0 OSH [facility] troponin ~500. EKG: Sinus bradycardia, 47 bpm, PAC, possible left atrial enlargement, possible lateral infarct, QTc 511. Telemetry: I have personally reviewed and interpreted the telemetry from the last 24 hours. Resultsshow sinus bradycardia with HR 50s, PVCs, heart rate climbs to 70s with activity.. Imaging: No results found for this visit on 04/16/23 (from the past 24 hour(s)). TTE 04/17/2023 Left ventricle is normal in size and wall thickness. Normal global systolic function with regional wall motion abnormalities as ascribed on the anterior/anterolateral aspect. Right ventricle is normal in size and systolic function. No significant cardiac valve findings. No pericardial effusion. Compared to prior study dated 02/09/2023, the extent of the anterior abnormal wall motion has increased. CTA PE protocol at [facility]- no PE but showed small pericardial effusion and some GG opacities. Prior CV studies Coronary CTA 09/24/2022 1. Coronary calcium score of 182 . 98%-ile rank based on age, race/ethnicity, and gender. 2. CAD-RADS 2. Mild mid-LAD stenosis (25-49%) secondary to calcific plaque. Calcium blooming may overestimate degree of stenosis. Otherwise, minimal diffuse atherosclerotic changes. 3. No evidence of acute aortopathy. 4. No acute pulmonary findings. [facility] 06/09/2021-RA 4, PA 38/15 (24) PCWP 11, CO/CI 3.14/1.6. [facility] 08/30/2019-normal coronary arteries. Assessment & Plan: Loida Madrigal is a 53 y.o. female with h/o mild nonobstructive mid LAD ASCVD on CCTA 09/2022, remote cardiac catheterization 08/2019 with normal coronaries , supraventricular tachycardia (AVNRT since 06/2021) s/p EPS and SVT ablation on 04/01/[address] Tovar, paroxysmal A-fib (diagnosed on 10/20/2022), HFpEF, pulmonary emboli on Eliquis, MARYLOU on CPAP, and restrictive lung disease secondary to obesity presents from [facility] with complains of exertional chest pressure and dyspnea which has been progressing over the recent weeks and more pronounced over the days leading up to presentation.Some chest pain episodes with associated jaw and left arm discomfort along with nausea which sublingual nitroglycerin relieves. At times chest discomfort with body position changes such as lying flatand deep inspiration along with orthopnea. Some of her discomforts are reproducible with palpitation. Abnormal troponin with flat trend similar to prior, EKG with nonspecific changes, elevated BNP, normal inflammatory markers, and TTE 04/17 with progressing anterior wall motion abnormality, preserved EF, and no pericardial effusion. Concern for unstable angina and treating for ACS. # Potential unstable angina # Anterior wall motion abnormality # NSTEMI type I versus II #Acute on chronic HFpEF - ACS therapies with heparin infusion, ASA 81mg PO daily (initial 324mg at osh), high intensity atorvastatin 80mg PO daily, and not using beta-tiffanie with sinus bradycardia. Sublingual NTG as needed and if recurrent discomforts not responding, consider NTG infusion. - NTG + morphine PRN chest pain or NTG drip if ongoing chest pain -[facility] 04/18 depending on [employer] availability. #Hx of pAfib #Hx of AVNRT sp EPS and Ablation - hold eliquis. Last taken on 04/16/23 am. - Continue IV heparin. # Hx of PE- continue with IV heparin #MARYLOU- auto titrate CPAP ordered. # Migraine- uses home nurtec which is not on formulary and she does not have home med (if home med becomes available she would need to fill out release of liability form). other alternatives typically contain apap which she does not want due to adr jitteriness&weird w/ apap. Consider neurology curbside if significant migraine continues. Diet: NPO diet (Give Meds) DVT Prophylaxis: DOAC Code status: Attempt Cardiopulmonary Resuscitation - Inpatient Disposition: Discharge Location: AM-[facility] Basic Mobility Raw Score: 24 PT: OT: PCP JOCY Franco [phone] Discussed with MD Kurt Sheppard PA-C APP1 pager [phone] 04/18/2023 * Kurt Silveira PA - 04/17/2023 7:15 AM EST Images from the original note were not included. CARDIOLOGY APP1 - [facility] DAILY PROGRESS NOTE Page [phone] to reach a provider 28/09 Admit Date: 04/16/2023 Encounter Date April 17, 2023 Anticipated Discharge Date: 04/20/2023 Hospital Day: 1 Active Hospital Problems Diagnosis NSTEMI (non-ST elevated myocardial infarction) Resolved Hospital Problems No resolved problems to display. 24 Hour Events/Subjective: NAEON Chest discomfort improved following sublingual nitroglycerin. She describes exertional chest discomfort/pressure which radiated to her jaw and left arm with associated breathlessness and an episode of nausea. Some of her discomforts are reproducible with palpation of the anterior chest. TTE 04/17 shows progressing anterior wall motion abnormalities and preserved LV systolic function. She remains on ACS therapies. Currently chest pain free. Home weights had trended up 3 pounds (220 pounds). Medications: Scheduled Meds: atorvastatin 80 mg Oral QPM DULoxetine DR 60 mg Oral Daily gabapentin 600 mg Oral Nightly pantoprazole EC 40 mg Oral Daily spironolactone 25 mg Oral Daily topiramate 100 mg Oral Nightly torsemide 20 mg Oral Daily sodium chloride 0.9 % (flush) 5 mL Intravenous BID rOPINIRole 2 mg Oral BID Continuous Infusions: heparin (porcine) infusion Stopped (04/17/23 1313) PRN Meds:.loratadine, sodium chloride 0.9 % (flush), lidocaine, nitroGLYcerin, heparin (porcine) infusion AND heparin (porcine) Objective: Last value Range last 24 hrs Temp: 36.6 ??C (97.9 ??F) Temp: [36.4 ??C (97.5 ??F)-36.9 ??C (98.4 ??F)] Heart Rate: 53 Heart Rate: [41-65] BP: 123/61 BP: (101-123)/(56-64) Resp: 17 Resp: [16-17] SpO2: 94 % SpO2: [94 %-99 %] Height: 160 cm (5' 3) Weight: 98.4 kg (217 lb 0.3 oz) BMI (Calculated): 37.69 BMI Classification: Obese Admit weight: 99.61 kg Patient Vitals for the past 168 hrs: Weight 04/17/23 0500 98.4 kg (217 lb 0.3 oz) 04/16/23 2321 99.6 kg (219 lb 9.6 oz) Intake/Output Summary (Last 24 hours) at 04/17/2023 1326 Last data filed at 04/17/2023 0800 Gross per 24 hour Intake 0 ml Output 600 ml Net -600 ml Physical Exam: Physical Exam Constitutional: General: She is not in acute distress. Appearance: She is well-developed. HENT: Head: Normocephalic and atraumatic. Nose: Nose normal. Eyes: General: Right eye: No discharge. Left eye: No discharge. Conjunctiva/sclera: Conjunctivae normal. Neck: Vascular: No JVD. Cardiovascular: Rate and Rhythm: Normal rate and regular rhythm. Heart sounds: Normal heart sounds. No murmur heard. No friction rub. No gallop. Pulmonary: Effort: Pulmonary effort is normal. Breath sounds: Normal breath sounds. No wheezing or rales. Abdominal: General: Bowel sounds are normal. There is no distension. Palpations: Abdomen is soft. Tenderness: There is no abdominal tenderness. There is no guarding. Musculoskeletal: Cervical back: Neck supple. Comments: Anterior chest reproducible discomfort with palpation Skin: General: Skin is warm and dry. Neurological: Mental Status: She is alert and oriented to person, place, and time. Psychiatric: Behavior: Behavior normal. Labs: Recent Labs 04/17/23 0333 WBC 7.4 HGB 14.8 HCT 44.3 PLATELET 233 MCV 92.5 Recent Labs 04/17/23 0333 NA 141 CL 106 CO2 22 K 4.0 MAGNESIUM 0.99 PHOS 4.1 CALCIUM 9.4 BUN 19* CREATININE 1.19 Coags Recent Labs 04/17/23 0333 INR 1.2 PT 13.3* PTT 40* Cardiac Markers Recent Labs 04/17/23 0643 04/17/233 TROPONINTHS 23* 24* PROBNP -- 867* Endocrine Recent Labs 04/17/23 0333 02/08/23 2208 09/27/22 0307 09/26/22 1750 TSH 5.93* 4.00 -- 3.02 HA1C -- -- 5.6 -- No results for input(s): CHLPL, TRIG, HDL, LDLCHOL, CHOLHDL in the last 168 hours. Recent Labs 04/17/23332 GLUCOSE 89 Latest Reference Range & Units 02/09/23 03:55 04/17/23 03:33 Sed Rate 2 - 39 mm/hr 15 12 CRP <=4.9 mg/L <3.0 <3.0 OSH [facility] troponin ~500. EKG: Sinus bradycardia, 47 bpm, PAC, possible left atrial enlargement, possible lateral infarct, QTc 511. Telemetry: I have personally reviewed and interpreted the telemetry from the last 24 hours. Resultsshow sinus bradycardia with HR 50s, PVCs, heart rate climbs to 70s with activity.. Imaging: No results found for this visit on 04/16/23 (from the past 24 hour(s)). TTE 04/17/2023 Left ventricle is normal in size and wall thickness. Normal global systolic function with regional wall motion abnormalities as ascribed on the anterior/anterolateral aspect. Right ventricle is normal in size and systolic function. No significant cardiac valve findings. No pericardial effusion. Compared to prior study dated 02/09/2023, the extent of the anterior abnormal wall motion has increased. CTA PE protocol at [facility]- no PE but showed small pericardial effusion and some GG opacities. Prior CV studies Coronary CTA 09/24/2022 1. Coronary calcium score of 182 . 98%-ile rank based on age, race/ethnicity, and gender. 2. CAD-RADS 2. Mild mid-LAD stenosis (25-49%) secondary to calcific plaque. Calcium blooming may overestimate degree of stenosis. Otherwise, minimal diffuse atherosclerotic changes. 3. No evidence of acute aortopathy. 4. No acute pulmonary findings. [facility] 06/09/2021-RA 4, PA 38/15 (24) PCWP 11, CO/CI 3.14/1.6. [facility] 08/30/2019-normal coronary arteries. Assessment & Plan: Loida Madrigal is a 53 y.o. female with h/o mild nonobstructive mid LAD ASCVD on CCTA 09/2022, remote cardiac catheterization with normal coronaries 08/2019, supraventricular tachycardia (AVNRT since 06/2021) s/p EPS and SVT ablation on 04/01/[address] Tovar,, paroxysmal A-fib (diagnosed on 10/20/2022), HFpEF, pulmonary emboli on Eliquis, and restrictive lung disease secondary to obesity presents from [facility] with complains of exertional chest pressure and dyspnea which has been progressing over the recent weeks and more pronounced over the days leading up to presentation. Some chest pain episodes with associated jaw and left arm discomfort along with nausea which sublingual nitroglycerin relieves. At times chest discomfort with body position changes such as lying flat and deep inspiration along with orthopnea. Some of her discomforts are reproducible with palpitation. Abnormal troponin with flat trend similar to prior, EKG with nonspecific changes, elevated BNP, and normal infl ammatory markers. Treating for ACS. TTE 04/17 with progressing anterior wall motion abnormality, preserved EF, and no pericardial effusion. Concern for unstable angina. # Potential unstable angina # Anterior wall motion abnormality # NSTEMI type I versus II #Acute on chronic HFpEF - ACS therapies with heparin infusion, ASA 81mg PO daily (initial 324mg at osh), high intensity atorvastatin 80mg PO daily, and holding beta-tiffanie with sinus bradycardia. Sublingual NTG as needed and if recurrent discomforts not responding, consider NTG infusion. - NTG + morphine PRN chest pain or NTG drip if ongoing chest pain -[facility] 04/18 or 04/19 depending on [employer] availability. #Hx of pAfib #Hx of AVNRT sp EPS and Ablation - hold eliquis. Last taken on 04/16/23 am. - Continue IV heparin. # Hx of PE- continue with IV heparin Diet: No diet orders on file DVT Prophylaxis: DOAC Code status: Attempt Cardiopulmonary Resuscitation - Inpatient Disposition: Discharge Location: [facility] Basic Mobility Raw Score: 14 PT: OT: PCP JOCY Franco [phone] Discussed with MD Kurt Sheppard PA-C APP1 pager [phone] 04/17/2023 documented in this encounter H&P Notes * Terrence Maloney MD - 04/16/2023 11:38 PM EST Cardiology Admission H&P Patient Name: Loida Madrigal Date of : 1970 Age: 53 y.o. Hospital Admit Date: 04/16/2023 Inpatient Attending: Jose Gallegos MD PCP: JOCY Franco Presenting Diagnosis/Chief Complaint: NSTEMI/ Pericarditis Active Problem List: There are no hospital problems to display for this patient. History of Present Illness: Loida Madrigal is a 53 y.o. with hx of paroxysmal A-fib (diagnosed on 10/20/2022), pulmonary emboli on Eliquis, HFpEF (EF of 59%), supraventricular tachycardia (AVNRT since 06/2021) s/p EPS and SVTablation on 04/01/[address] Tovar on [facility], restrictive lung disease secondary to obesity presents from [facility] with complains of chest discomfort that started overnight. The patient has been experiencing ongoing chest pain, prompting admission on 02/11/23 primarily due to concerns about a NSTEMI indicated by elevated troponin levels and EKG changes noted at OSH. However, the observed EKG changes remained largely consistent with previous recordings. Troponin levels at [facility] showed a plateau at 23 > 27. Notably, a CT coronary scan conducted in 09/2022 revealed non-obstructive coronary arteries. A TTE provided reassurance with a preserved ejection fraction of 59%. There were concerns about segmental wall motion abnormalities, which were absent in prior examinations. Despite ongoing chest pain throughout the admission, the discomfort was responsive to nitroglycerin. The patient's pre-admission amlodipine was discontinued due to hypotension and lower extremity edema, with ranolazine initiated on 02/10, which was later discontinued due to fogginess. Given the atypical presentation of chest pain exacerbated by deep breaths and alleviated by leaning forward, an ESRand CRP were obtained to explore the possibility of pericarditis. However, both inflammatory markers returned within normal ranges (ESR 15 and CRP < 3.0), excluding an inflammatory etiology for the chest pain. She was discharged to cardiac rehab and had been doing well. It was postulated that her tachyarrythmia is what underlies her chest pain. The patient presents with chest pain again 10/15, improving with sublingua Nitro. At [facility] Vitals: HR 48, BP 115/42, O2 96% on room air Troponin ~ 500 EKG: SR with nonspecific ST-T changes. CTA PE protocol: no PE but showed small pericardial effusion and some GG opacities. The patient hadCOVID 19 in February and has had chronic cough since then. The pateint has been loaded with ASA, Atorvastatin 80 mg , and Heparin gtt. 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 Lives in [facility] Social Determinants of Health Financial Resource Strain: Not on file Food Insecurity: No Food Insecurity (02/10/2023) Hunger Vital Sign Worried About Running Out of Food in the Last Year: Never true Ran Out of Food in the Last Year: Never true Transportation Needs: No Transportation Needs (02/10/2023) PRAPARE - Transportation Lack of Transportation (Medical): No Lack of Transportation (Non-Medical): No Physical Activity: Not on file Intimate Partner Violence: Not At Risk (04/16/2023) IPV Inpatient Questions Prevent Contact with Others: no Feels Threatened by Someone: no Feels Unsafe at Home: no Physical Signs of Abuse Present: no Housing Stability: Low Risk (02/10/2023) Housing Stability Vital Sign Unable to Pay for Housing in the Last Year: No Number of Places Lived in the Last Year: 1 Unstable Housing in the Last Year: No REVIEW OF SYSTEMS: Review of Systems as per HPI otherwise negative. Medications: Medications Prior to Admission Medication Sig Dispense Refill Last Dose apixaban (Eliquis) 5 mg tablet Take 1 tablet by mouth 2 times daily. 60 tablet 11 spironolactone (Aldactone) 25 mg tablet Take 1 tablet by mouth daily. 90 tablet 3 torsemide (Demadex) 20 mg tablet Take 1 tablet by mouth daily. 90 tablet 3 melatonin 10 mg capsule Take 10 mg by mouth nightly as needed. atorvastatin (Lipitor) 80 mg tablet Take 1 tablet by mouth every evening. 90 tablet 3 omeprazole (PriLOSEC) 20 mg Capsule, Delayed Release(E.C.) Take 20 mg by mouth once as needed. Infrequent use prochlorperazine (Compazine) 5 mg tablet Take 5 mg by mouth every 6 hours as needed for Nausea. erenumab-aooe (Aimovig Autoinjector) 70 mg/mL Auto-Injector Inject subcutaneously every 30 days. empagliflozin (Jardiance) 10 mg Tablet Take 1 tablet by mouth daily. 90 tablet 1 rOPINIRole (Requip) 1 mg Tablet Take 2 mg by mouth 2 times daily. loratadine (Claritin) 10 mg Tablet Take 10 mg by mouth daily as needed. fluticasone propionate (FLONASE) 50 mcg/actuation [place], Suspension 1 spray by Each Nare route [...] Use with spacer Allergies: Allergies Allergen Reactions Clobetasol Rash Other reaction(s): Skin Rash PHYSICAL EXAM: Last set of vital signs: BP 105/56 (BP Location (NBP): Left arm, Patient Position: Lying) Pulse 65 Temp 36.7 ??C (98.1 ??F) (Oral) Resp 17 Ht 162.6 cm (5' 4) Wt 99.6 kg (219 lb 9.6 oz) SpO2 98% BMI 37.69 kg/m?? General Appearance: No acute distress, lying in bed, HEENT: anicteric, mucous membranes moist Neck: Supple, no JVD Lungs: Clear to auscultation bilaterally. No wheezes/rhonchi/rales. Cardiac: irregular rate and rhythm. Systolic murmur Abdomen: Soft, non-tender, non-distended. Normo-active bowel sounds. No organomegaly or masses noted Extremities: No edema. Warm extremitites. Neuro: Alert and oriented. Grossly non-focal. Conversant, moving all extremities. Skin: No rashes or lesions noted. LABS: No results found for this or any previous visit (from the past 24 hour(s)). ASSESSMENT: Loida Madrigal is a 53 y.o. with hx of paroxysmal A-fib (diagnosed on 10/20/2022), pulmonary emboli on Eliquis, HFpEF (EF of 59%), supraventricular tachycardia (AVNRT since 06/2021) s/p EPS and SVTablation on 04/01/[address] Tovar on [facility], restrictive lung disease secondary to obesity presents from [facility] with complains of chest discomfort that started overnight. The patient presents with chest pain, a positive troponin, and an EKG displaying non-specific ST changes, hinting at the potential for NSTEMI type 1. Notably, her description of chest pain worsening in the supine position and alleviating with forward leaning raises concerns for pericarditis #Chest pain NSTEMI type 1 vs Pericarditis - EKG and troponin - ASA 81mg PO daily (initial 324mg at osh) - Atorvastatin 80mg PO daily, check lipid panel - NTG + morphine PRN chest pain or NTG drip if ongoing chest pain - Consider metoprolol. (Hold if hypotensive / cardiogenic shock / inferior NM / sildenafil within past 24 hours) - Anti-coagulation (Heparin drip per ACS protocol) - TTEcho in am. - NPO for possible ischemic eval in the am. #Hx of pAfib #Hx of AVNRT sp EPS and Ablation - hold eliquis. Last taken on 04/9223 in the am. - Continue IV heparin. # Hx of PE - continue with IV heparin Full code Cardiac diet Heparin for DVT ppx.. Terrence Maloney MD 04/16/2023 documented in this encounter Miscellaneous Notes * Care Management Discharge - Jorge Veloz RN - 04/22/2023 4:21 PM EST CARE MANAGEMENT FINAL DISCHARGE NOTE Chart reviewed, care reviewed with primary team and at interdisciplinary rounds. Patient is medically ready for discharge to home. Needs for Transition of Care: per discharge instructions Plan for discharge is: Home w/o Services Outpatient Agency/Support Group Needs: None Agency Referrals & Follow-up Care: Transportation: RS assisted with coordinating transportation home through [employer] driving service, who will have a car here at entrance #2 (inpatient visitor entrance) at 5:15pm to bring the patient home Wheelchair van/Ambulance? No Functional status prior to admission: Independent Home Environment: Others in the home: spouse. Current Living Arrangements: home/apartment/condo. Accessibility Concerns:1.5 story home w/ full basement; 4 PANTERA; no home accessibility concerns. Current Functional Ability: Independent DME used at home: respiratory supplies, other (see comments), grab bar - tub/shower (CPAP [facility]) DME Needed at Discharge: N/A Patient is insured through: Primary Insurance: [employer] [place] Payor: [employer] [place] / Plan: [place] / Product Type: *No Product type* / Secondary Insurance: N/A Prescription Coverage: Yes This plan was formulated with input from patient and team. All are in agreement with plan. * Consult Note - Maegan Mike APRN - 04/22/2023 10:38 AM EST Images from the original note were not included. [facility] [place] [address] [id number] INPATIENT CARDIOLOGY CONSULT PROGRESS NOTE Interval events: Since the initial cardiology consult note done on 04/19/2023 the patient has underwent cardiac MRI. Cardiac MRI was concerning for an infiltrative disease like sarcoidosis which would be less typical for amyloidosis or sequelae of myocarditis. Based on these findings a sarcoid PET scan will be needed. This will require a 48-hour change of diet which is low-carb and higher in fat content and will be ordered as an outpatient. The patient is feeling well. Out of bed ambulating in the hallway without dizziness, lightheadedness after starting low dose amlodipine at 2.5 mg daily. Additional dose of torsemide resolved lower leg edema present yesterday. Current inpatient CV meds - amlodipine 2.5 mg, apixaban 5 mg BID, ASA 81 mg, Atorvastatin 40 qHS, spironolactone 25 mg, torsemide 20 mg Physical Exam: Last value Range last 8 hrs Temperature Temp: 36.6 ??C (97.8 ??F) Temp: [36.5 ??C (97.7 ??F)-36.6 ??C (97.8 ??F)] Heart Rate Heart Rate: 71 Heart Rate: [53-71] Blood Pressure BP: 131/68 BP: (107-131)/(68-69) Respiratory Rate Resp: 14 Resp: [14-16] SpO2 SpO2: 99 % SpO2: [98 %-99 %] General- No acute distress. HEENT- Atraumatic, normocephalic. Skin- Warm and dry. Neck- No JVD noted. Cardiovascular- Normal S1/S2, regular rate and rhythm. No murmur, rub or gallop. Lungs- Clear to auscultation bilaterally. Extremities- No edema in bilateral lower extremities. Some resolving edema in right forearm (reportedly from IV infiltrate earlier in the week) Neuro- A&Ox3, non-focal. Tests: Cardiac MRI 04/21/23 Normal size of the left ventricle. Abnormal thinning in the left ventricular anterior wall and mild myocardial hypertrophy of the interventricular septum. There is abnormal enhancement in the left ventricular anterior wall which appears to be predominantly mid myocardial with some subendocardial sparing. In addition, there is patchy enhancement in the interventricular septum. Findings are most concerning for an infiltrative disease like sarcoidosis; less typical for amyloidosis or sequela of myocarditis. Hypokinesis of the left ventricular anterior wall. Low normal left ventricular ejection fraction of 55%. Dilated main pulmonary artery can be an indirect sign of pulmonary hypertension. Telemetry review: Assessment/Recommendations: Loida Madrigal is a 53 y.o. female, history of paroxysmal A-fib (diagnosed on 10/20/2022), chronic diastolic heart failure (LVEF 59%), supraventricular tachycardia (AVNRT since 06/2021) s/p EPS andSVT ablation on 04/01/[address] Tovar, MARYLOU on CPAP, restrictive lung disease secondary to obesity,pulmonary emboli on Eliquis, presenting with chest pain and admitted for further management of NSTEMI. 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 Considered in the differential are microvascular disease, myocarditis (recent Covid infection in February 2023), and sarcoidosis (given presence of aneurysmal changes on TTE, hx of atrial/supraventricular arrhythmias). Telemetry review shows some SVT with retrograde P waves present, longest run observed was 11 beats.Recent history of SVT ablation with Dr. Tovar and is intolerant of beta tiffanie. Cardiac MRI has indicated the there is possible sarcoid. Will plan for sarcoid PET scan as an outpatient to further delineate these findings. Keep amlodipine 2.5 mg daily. Discussed with attending physician Dr. Jaspreet Kinsey, please see his attestation for further insights. Discussed with MD Maegan De Leon, DOOR TO DOOR SELLING AGENT Pager [phone] 04/22/2023 Associated attestation - Jaspreet Kinsey MD - 04/22/2023 5:27 PM EST I have seen and examined the patient, have reviewed labs, pertinent images, and EKGs. I agree with the H&P, formulation, and plan as directed by the Maegan Mike MRI demonstrates possible sarcoid. Will undergo outpatient nuclear scan to confirm/refute this hypothesis, with further management pending result Has brief atrial arrhythmias- expectant management of these. * Plan of Care - Zoila Rooney RN - 04/22/2023 7:48 AM EST Problem: Adult Inpatient Plan of Care Goal: [...] Outcome: Ongoing (Interventions Implemented as Appropriate) Problem: Adjustment to Illness (Heart Failure) Goal: Optimal Coping Outcome: Ongoing (Interventions Implemented as Appropriate) Problem: Cardiac Output Decreased (Heart Failure) Goal: Optimal Cardiac Output Outcome: Ongoing (Interventions Implemented as Appropriate) Problem: Dysrhythmia (Heart Failure) Goal: Stable Heart Rate and Rhythm Outcome: Ongoing (Interventions Implemented as Appropriate) Problem: Fluid Imbalance (Heart Failure) Goal: Fluid Balance Outcome: Ongoing (Interventions Implemented as Appropriate) Problem: Functional Ability Impaired (Heart Failure) Goal: Optimal Functional Ability Outcome: Ongoing (Interventions Implemented as Appropriate) Problem: Oral Intake Inadequate (Heart Failure) Goal: Optimal Nutrition Intake Outcome: Ongoing (Interventions Implemented as Appropriate) Problem: Respiratory Compromise (Heart Failure) Goal: Effective Oxygenation and Ventilation Outcome: Ongoing (Interventions Implemented as Appropriate) Problem: Sleep Disordered Breathing (Heart Failure) Goal: Effective Breathing Pattern During Sleep Outcome: Ongoing (Interventions Implemented as Appropriate) Problem: [...] Complication Outcome: Ongoing (Interventions Implemented as Appropriate) * Plan of Care - Charity Jackson RN - 04/21/2023 5:47 PM EST SHIFT NOTE: Uneventful shift. Pt is A&O x4, VSS, no c/o pain. No CP or SOB. NSR/SB on tele. Pt currently onRA O2. IND in room. Head to toe as documented. Questions and concerns addressed, pt comfortable andshowing no signs of distress. Bed in lowest position, call lombardo within reach. Safety checks completed. Pt went for cardiac MRI today. PLAN MOVING FORWARD: Discharge planning ongoing accordingly. INDIVIDUALIZED FALL PREVENTION INTERVENTIONS: Patient-specific fall risk factors per assessment: [current deficits]: lines and wires. Unfamiliar environment Assistance [level of assistance required for transfers and ambulation]: Ind Supervision [direct monitoring required during toileting and ADLs]: Ind Surveillance [continuous indirect monitoring]: Q2h safety checks [...] Outcome: Ongoing (Interventions Implemented as Appropriate) Problem: Adjustment to Illness (Heart Failure) Goal: Optimal Coping Outcome: Ongoing (Interventions Implemented as Appropriate) Problem: Cardiac Output Decreased (Heart Failure) Goal: Optimal Cardiac Output Outcome: Ongoing (Interventions Implemented as Appropriate) Problem: Dysrhythmia (Heart Failure) Goal: Stable Heart Rate and Rhythm Outcome: Ongoing (Interventions Implemented as Appropriate) Problem: Fluid Imbalance (Heart Failure) Goal: Fluid Balance Outcome: Ongoing (Interventions Implemented as Appropriate) Problem: Functional Ability Impaired (Heart Failure) Goal: Optimal Functional Ability Outcome: Ongoing (Interventions Implemented as Appropriate) Problem: Oral Intake Inadequate (Heart Failure) Goal: Optimal Nutrition Intake Outcome: Ongoing (Interventions Implemented as Appropriate) Problem: Respiratory Compromise (Heart Failure) Goal: Effective Oxygenation and Ventilation Outcome: Ongoing (Interventions Implemented as Appropriate) Problem: Sleep Disordered Breathing (Heart Failure) Goal: Effective Breathing Pattern During Sleep Outcome: Ongoing (Interventions Implemented as Appropriate) Problem: [...] Complication Outcome: Ongoing (Interventions Implemented as Appropriate) * Plan of Care - Zoila Rooney RN - 04/21/2023 6:33 AM EST Problem: Adult Inpatient Plan of Care Goal: [...] Outcome: Ongoing (Interventions Implemented as Appropriate) Problem: Adjustment to Illness (Heart Failure) Goal: Optimal Coping Outcome: Ongoing (Interventions Implemented as Appropriate) Problem: Cardiac Output Decreased (Heart Failure) Goal: Optimal Cardiac Output Outcome: Ongoing (Interventions Implemented as Appropriate) Problem: Dysrhythmia (Heart Failure) Goal: Stable Heart Rate and Rhythm Outcome: Ongoing (Interventions Implemented as Appropriate) * Plan of Care - Chilo Nickerson RN - 04/20/2023 6:49 PM EST SHIFT EVALUATION NOTE: SHIFT SUMMARY: Pt AOx4. VSS on RA, assessment as charted. Pt denies CP or SOB. SB/NSR on tele, see scanned documents. See flowsheets for I&O. Ultrasound of RUE in AM @bedside. New swelling in LUE, team notified. Chest pressure radiating up to left jaw after walking, team notified, EKG obtained, trops trended (See Results Review). Potassium repleted (See EMAR). MRI scheduled for tomorrow (04/21). Uneventful sh ift for pt, call lombardo within reach. PLAN [...] Outcome: Ongoing (Interventions Implemented as Appropriate) Problem: Adjustment to Illness (Heart Failure) Goal: Optimal Coping Outcome: Ongoing (Interventions Implemented as Appropriate) Problem: Cardiac Output Decreased (Heart Failure) Goal: Optimal Cardiac Output Outcome: Ongoing (Interventions Implemented as Appropriate) Problem: Dysrhythmia (Heart Failure) Goal: Stable Heart Rate and Rhythm Outcome: Ongoing (Interventions Implemented as Appropriate) Problem: Fluid Imbalance (Heart Failure) Goal: Fluid Balance Outcome: Ongoing (Interventions Implemented as Appropriate) Problem: Functional Ability Impaired (Heart Failure) Goal: Optimal Functional Ability Outcome: Ongoing (Interventions Implemented as Appropriate) Problem: Oral Intake Inadequate (Heart Failure) Goal: Optimal Nutrition Intake Outcome: Ongoing (Interventions Implemented as Appropriate) Problem: Respiratory Compromise (Heart Failure) Goal: Effective Oxygenation and Ventilation Outcome: Ongoing (Interventions Implemented as Appropriate) Problem: Sleep Disordered Breathing (Heart Failure) Goal: Effective Breathing Pattern During Sleep Outcome: Ongoing (Interventions Implemented as Appropriate) Problem: [...] Complication Outcome: Ongoing (Interventions Implemented as Appropriate) * Consult Note - Zoraida Tatum MSW - 04/20/2023 2:22 PM EST CLUTCH OPERATOR received a consult to support patient with financial concerns. CLUTCH OPERATOR met with patient and introduced self. Patient stated due to hospitalization, she has been out of work and feeling stress around not being able to pay bills. I have a car payment and other bills and it's like I have to choose which one to pay and which one not to pay. CLUTCH OPERATOR validated patient's stress around financial concerns. CLUTCH OPERATOR asked patient if she has applied for [employer] or any other state benefits. Patient stated that she has, but is over the household income criteria to qualify for benefits. Patient shared that she owns her home outright and mainly concerned about making her car payment and transportation home. MSWstated that care management will help arrange for a ride, if needed. CLUTCH OPERATOR provided patient with community resources such as the [facility] Food Directory, the [facility] Community Action phone number, and the [facility] [place] contact info. CLUTCH OPERATOR available to support patient should anything else rise. * Consult Note - Tiffany Flores RN - 04/20/2023 7:47 AM EST VAS routine assessment of PIV sites without s/s local complications noted but pt states that 'swelling in right arm continues, with right hand and forearm noted to be slightly more edematous than left. CSM intact to right hand. PIV in RAC removed. Right forearm and hand elevated on 2 pillows and pt encouraged to keep right arm elevated while in bed or sitting in chair. Pt currently undergoing ultrasound of RUE. * Plan of Care - Zoila Rooney RN - 04/20/2023 7:20 AM EST Problem: Adult Inpatient Plan of Care Goal: [...] Outcome: Ongoing (Interventions Implemented as Appropriate) Problem: Adjustment to Illness (Heart Failure) Goal: Optimal Coping Outcome: Ongoing (Interventions Implemented as Appropriate) Problem: Cardiac Output Decreased (Heart Failure) Goal: Optimal Cardiac Output Outcome: Ongoing (Interventions Implemented as Appropriate) Problem: Dysrhythmia (Heart Failure) Goal: Stable Heart Rate and Rhythm Outcome: Ongoing (Interventions Implemented as Appropriate) Problem: Fluid Imbalance (Heart Failure) Goal: Fluid Balance Outcome: Ongoing (Interventions Implemented as Appropriate) Problem: Functional Ability Impaired (Heart Failure) Goal: Optimal Functional Ability Outcome: Ongoing (Interventions Implemented as Appropriate) Problem: Oral Intake Inadequate (Heart Failure) Goal: Optimal Nutrition Intake Outcome: Ongoing (Interventions Implemented as Appropriate) * Plan of Care - Chilo Nickerson RN - 04/19/2023 6:32 PM EST SHIFT EVALUATION NOTE: SHIFT SUMMARY: Pt AOx4. VSS on RA, assessment as charted. Pt denies CP or SOB. SB/NSR on tele, see scanned documents. See flowsheets for I&O. Pt RUE swollen/painful, team notified. Arterial duplex of RUE done @bedside. Respiratory panel collected, resulted negative (See Results Review). UA collected (See results Review). Consult to Social Work added. Uneventful shift for pt, call lombardo within [...] Outcome: Ongoing (Interventions Implemented as Appropriate) Problem: Adjustment to Illness (Heart Failure) Goal: Optimal Coping Outcome: Ongoing (Interventions Implemented as Appropriate) Problem: Cardiac Output Decreased (Heart Failure) Goal: Optimal Cardiac Output Outcome: Ongoing (Interventions Implemented as Appropriate) Problem: Dysrhythmia (Heart Failure) Goal: Stable Heart Rate and Rhythm Outcome: Ongoing (Interventions Implemented as Appropriate) Problem: Fluid Imbalance (Heart Failure) Goal: Fluid Balance Outcome: Ongoing (Interventions Implemented as Appropriate) Problem: Functional Ability Impaired (Heart Failure) Goal: Optimal Functional Ability Outcome: Ongoing (Interventions Implemented as Appropriate) Problem: Oral Intake Inadequate (Heart Failure) Goal: Optimal Nutrition Intake Outcome: Ongoing (Interventions Implemented as Appropriate) Problem: Respiratory Compromise (Heart Failure) Goal: Effective Oxygenation and Ventilation Outcome: Ongoing (Interventions Implemented as Appropriate) Problem: Sleep Disordered Breathing (Heart Failure) Goal: Effective Breathing Pattern During Sleep Outcome: Ongoing (Interventions Implemented as Appropriate) Problem: [...] Complication Outcome: Ongoing (Interventions Implemented as Appropriate) * Initial Assessments - Jorge Veloz RN - 04/19/2023 12:44 PM EST Office of Care Management Initial Assessment Jorge Veloz RN reviewed record and discussed patient with Care Team. Source of Information: Team, bedside nurse, medical record, and Patient Introduced self/reviewed role; services accepted. Admitted From: Transfer from another hospital Location: [facility] Reason for Hospitalization: chest pain and cough Covid Vaccination Status: 1st, 2nd & booster Last COVID test: Lab Results Component Value Date [id number] Not Detected 06/13/2021 Past medical History: Past [...] is your DPOA-HC?: Child Current Coping/Education/Information Needs: Current Functional Ability: Independent Functional Status Prior to Admission: Independent Prior ADLs & IADLs: Independent with all ADLs & IADLs Bathing: Independent with Bathing Dressing: Independent with Dressing Home Environment: Others in the home: spouse. Current Living Arrangements: home/apartment/condo. Accessibility Concerns:1.5 story home w/ full basement; 4 PANTERA; no home accessibility concerns. In the last 12 months, was there a time when you were not able to pay the mortgage or rent on time?: Yes (pt provides the only income for the home; struggling with finances. has MS, but receives no disability benefits.) In the last 12 months, how many places have you lived?: 1 In the last 12 months, was there a time when you did not have a steady place to sleep or slept in ashelter (including now)?: No In the past 12 months has the electric, gas, oil, or water company threatened to shut off services in your home?: Yes ([employer] is currently threatening to shut off electricity within next week or two) Within the past 12 months, you worried that your food would run out before you got the money to buymore.: Never true Within the past 12 months, the food you bought just didn't last and you didn't have money to get more.: Sometimes true (pt has been combining resources with her ,other (who lives next door) to make ends meet and have enough food) Resource / Environmental Concerns: Resource/Environmental Concerns: financial In the past 12 months, has lack of transportation kept you from medical appointments or from getting medications?: Yes (pt states she is behind on her car lease s/t hospitalization and being out of work); pt has limited money to pay for brissa to get home. In the past 12 months, has lack of transportation kept you from meetings, work, or from getting things needed for daily living?: Yes (pt states she is behind on her car lease s/t hospitalization and being out of work) Current DME: respiratory supplies, other (see comments), grab bar - tub/shower (CPAP [facility]) Home Address confirmed as: [facility] [address] Social & Family Supports: All names listed below confirmed with patient as current and correct Extended Emergency Contact Information Primary Emergency Contact: Boby Madrigal Mobile Relation: Spouse Secondary Emergency Contact: TALI SHAH Relation: Mother Current Care Provided by: self Provides Primary Care For: spouse (spouse has progressive MS; was denies disability benefits twice) Caregiver if needed: parent(s) Quality of Family relationships: supportive Community Resources being provided currently: none Behavioral Health History: Substance Use/Abuse confirmed: Social History Tobacco Use [...] Specific Information: N/A Health/Prescription Coverage: Primary Insurance: [employer] Payor: [employer] [place] / Plan: [place]ANGE / Product Type: *No Product type* / Secondary Insurance: N/A ; Prescription Coverage: Yes Preferred Pharmacy: [id number] - [facility], [place] - [address] [id number] [facility] [place], [place] - [address] [facility] [address] [place] Status: Patient is a : No Primary Care Provider confirmed: JOCY Franco [phone] Patient/Caregiver Goals of Treatment: home w / family when MR Potential Needs for Transition of Care: other (see comments) (CLUTCH OPERATOR support; pt's spouse was denied twice for disability; pt provides the only income for the family) Agency Referrals: Not Applicable Transportation: friend or family will provide; pt will need gas cards to get home; she is the sole income provider for the family, and states that, as she has not been working, money is very tight. Her is disabled (progressive MS) Transportation Anticipated: family or friend will provide Concerns to be Addressed: financial/insurance, discharge planning; CLUTCH OPERATOR consult placed to discuss available resources Assessment: Patient is admitted to [facility] [place] service for NSTEMI Plan: pending clinical course, but likely home w/o services when MR A member of the Care Management team will continue to monitor progress, follow for continuity of care and assist with transition of care planning. * Consult Note - Otis Rader MD - 04/19/2023 10:00 AM EST Images from the original note were not included. [facility] [place] [address] [address] INPATIENT CARDIOLOGY CONSULT NOTE Reason for Consult: Abnormal echo in setting of non-obstructive CAD on cath HPI: Loida Madrigal is a 53 y.o. female, history of paroxysmal A-fib (diagnosed on 10/20/2022), chronic diastolic heart failure (LVEF 59%), supraventricular tachycardia (AVNRT since 06/2021) s/p EPS andSVT ablation on 04/01/[address] Tovar, MARYLOU on CPAP, restrictive lung disease secondary to obesity,pulmonary emboli on Eliquis, who presented with several weeks of progressive exertional chest pressure that sometimes radiates to jaw/left arm and in other occasions are worse with supine positioning/inspiration, with relief from nitroglycerin. These were associated with dyspnea and orthopnea. Cardiac workup included EKG with nonspecific changes; high sensitivity troponins 24 -> 23; proBNP 867; normal inflammatory markers; and TTE 04/17 with progressing anterior wall motion abnormality, preserved EF, and no pericardial effusion. Treated as ACS with DAPT and heparin prior to [facility] 04/18, which was negative for any obstructive CAD. We are consulted regarding abnormal echo findings in setting of no clear culprit coronary artery disease. Current inpatient CV meds - amlodipine 2.5 mg, apixaban 5 mg BID, ASA 81 mg, Atorvastatin 40 qHS, spironolactone 25 mg, torsemide 20 mg Physical Exam: Last value Range last 8 hrs Temperature Temp: 36.7 ??C (98 ??F) Temp: [36.7 ??C (98 ??F)] Heart Rate Heart Rate: 56 Heart Rate: [50-56] Blood Pressure BP: 115/72 BP: (115-118)/(72-92) Respiratory Rate Resp: 17 Resp: [15-17] SpO2 SpO2: 98 % SpO2: [96 %-98 %] General- No acute distress. HEENT- Atraumatic, normocephalic. Skin- Warm and dry. Neck- No JVD noted. Cardiovascular- Normal S1/S2, regular rate and rhythm. No murmur, rub or gallop. Lungs- Clear to auscultation bilaterally. Extremities- No edema. Neuro- A&Ox3, non-focal. Assessment/Recommendations: Loida Madrigal is a 53 y.o. female, history of paroxysmal A-fib (diagnosed on 10/20/2022), chronic diastolic heart failure (LVEF 59%), supraventricular tachycardia (AVNRT since 06/2021) s/p EPS andSVT ablation on 04/01/[address] Tovar, MARYLOU on CPAP, restrictive lung disease secondary to obesity,pulmonary emboli on Eliquis, presenting with chest pain and admitted for further management of NSTEMI. 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 Considered in the differential are microvascular disease, myocarditis (recent Covid infection in February 2023), and sarcoidosis (given presence of aneurysmal changes on TTE, hx of atrial/supraventricular arrhythmias). Therefore, a cardiac MRI with late gadolinium enhancement would be useful to clarify the underlyingetiology and guide subsequent management. Discussed with attending physician Dr. Jaspreet Kinsey, please see his attestation for further insights. Otis Rader MD Cardiovascular Medicine Fellow 04/19/2023 Associated attestation - Jaspreet Kinsey MD - 04/19/2023 5:07 PM EST I have seen and examined the patient, have reviewed labs, pertinent images, and EKGs. I agree with the H&P, formulation, and plan as directed by Dr Rader I reviewed thoughts with patient when she had her cardiac catheterization. Unclear cause of echocardiographic findings and transient but not infrequent chest pain episodes. Obtain CMR (inpatient versus outpatient). If negative, will obtain cardiac PET. Depending on results, will refer to the good Dr Mcdaniels for further discussion of possible MIN[place]A. Of note, in the pastthis diagnosis was suggested, but patient had had either volume overload versus atrial fibrillationversus SVT as a culprit. This encounter, none of these were seen. * Plan of Care - Sudhakar Smith RN - 04/19/2023 4:18 AM EST Pt remains hemodynamically stable. VSS are within range. Pt's tele- monitoring in SR and SB. No pain reported. CPAP applied by the RT. Right ulna site dressing clean and dried. No swelling or bleeding noted. No chest pain reported. Problem: Adult Inpatient Plan of Care Goal: Plan of Care Review Outcome: Ongoing (Interventions Implemented as Appropriate) Problem: Adult Inpatient Plan of Care Goal: Absence of Hospital-Acquired Illness or Injury Outcome: Ongoing (Interventions Implemented as Appropriate) Problem: Pain Acute Goal: Acceptable Pain Control and Functional Ability Outcome: Ongoing (Interventions Implemented as Appropriate) Problem: Chest Pain Goal: Resolution of Chest Pain Symptoms Outcome: Ongoing (Interventions Implemented as Appropriate) Problem: Adjustment to Illness (Heart Failure) Goal: Optimal Coping Outcome: Ongoing (Interventions Implemented as Appropriate) * Plan of Care - Kurt Silveira PA - 04/18/2023 5:37 PM EST Images from the original note were not included. Post Cardiac Cath Note S: Patient reports no chest pain or shortness of breath. Patient reports no right wrist pain. O: No active bleeding noted at cath site, right radial. No hematoma, or tenderness noted. Radial pulse intact. Last value Range last 12 hrs Temperature Temp: 36.5 ??C (97.7 ??F) Temp: [36.5 ??C (97.7 ??F)-36.7 ??C (98 ??F)] Heart Rate Heart Rate: 55 Heart Rate: [47-58] Blood Pressure BP: 92/41 BP: (92-134)/(41-78) Respiratory Rate Resp: 16 Resp: [16-18] SpO2 SpO2: 97 % SpO2: [95 %-97 %] A/P. Post cardiac cath without complications. Kurt Silveira PA-C 04/18/2023 * Plan of Care - Malia Mcintyre RN - 04/18/2023 1:47 PM EST OUTCOME EVALUATION NOTE: OUTCOME SUMMARY: VSS on RA, SB - on and off junctional rhythm on tele. Independent in room. C/o migraine headache (posterior, left side) 12/15, states she usually takes Nurtec for rescue headache. APAP offered but per pt, it makes her jittery and feel weird. Provider made aware, unfortunately Nurtec is non-formulary and pt is unable to have someone bring it from home. Will continue to monitor for now. Went to cathlab, came back ~1115am, s/p [facility] with no coronary artery disease seen. Right ulnar access with TR band in place, inflated with 13 cc of air. Radial/Ulnar pulse palpable 1/2, no c/o numbness and tingling. Ongoing saline infusion 100 ml/hr x2 hrs. TR band out @ 1330pm, no hematoma/bleeding noted, radial/ulnar pulses palpable 2/2, dry dressing with transparent film applied. PLAN MOVING FORWARD: - monitor BP/fluid volume status - monitor migraine headache CPG GOAL OUTCOME EVALUATION: Problem: Adult Inpatient [...] Outcome: Ongoing (Interventions Implemented as Appropriate) Problem: Adjustment to Illness (Heart Failure) Goal: Optimal Coping Outcome: Ongoing (Interventions Implemented as Appropriate) Problem: Cardiac Output Decreased (Heart Failure) Goal: Optimal Cardiac Output Outcome: Ongoing (Interventions Implemented as Appropriate) Problem: Dysrhythmia (Heart Failure) Goal: Stable Heart Rate and Rhythm Outcome: Ongoing (Interventions Implemented as Appropriate) Problem: Fluid Imbalance (Heart Failure) Goal: Fluid Balance Outcome: Ongoing (Interventions Implemented as Appropriate) Problem: Functional Ability Impaired (Heart Failure) Goal: Optimal Functional Ability Outcome: Ongoing (Interventions Implemented as Appropriate) Problem: Oral Intake Inadequate (Heart Failure) Goal: Optimal Nutrition Intake Outcome: Ongoing (Interventions Implemented as Appropriate) Problem: Respiratory Compromise (Heart Failure) Goal: Effective Oxygenation and Ventilation Outcome: Ongoing (Interventions Implemented as Appropriate) Problem: Sleep Disordered Breathing (Heart Failure) Goal: Effective Breathing Pattern During Sleep Outcome: Ongoing (Interventions Implemented as Appropriate) Problem: [...] Complication Outcome: Ongoing (Interventions Implemented as Appropriate) * Plan of Care - Sudhakar Smith RN - 04/18/2023 2:12 AM EST Pt is hemodynamically stable. Alert and oriented X4. Heparin held due to UFH > 1. Restarted heparin @ 20:08 Heparin is infusing @ a 600U/kg/hr. Next UFH is due @ 02:08. UFH - reported therapeutic @0.50. Repeat lab is due @ 08:10am. . No bleeding reported. Vital sign found in SB- heart rate ranging between 55 to 58bpm. Patient is receiving 1 liter of o2 during sleep. SPO @ 88 when asleep. Problem: Adult Inpatient Plan of Care Goal: Patient-Specific Goal (Individualized) Outcome: Ongoing (Interventions Implemented as Appropriate) Problem: Adult Inpatient Plan of Care Goal: Absence of Hospital-Acquired Illness or Injury Outcome: Ongoing (Interventions Implemented as Appropriate) Problem: Pain Acute Goal: Acceptable Pain Control and Functional Ability Outcome: Ongoing (Interventions Implemented as Appropriate) Problem: Chest Pain Goal: Resolution of Chest Pain Symptoms Outcome: Ongoing (Interventions Implemented as Appropriate) * Plan of Care - Kurt Silveira PA - 04/17/2023 1:55 PM EST Images from the original note were not included. Cardiac cath Pre Procedure Note The indications, expected benefits and potential risks of heart catheterization were reviewed in detail with the patient. The potential for , heart attack, stroke, kidney failure, hemorrhage, allergic reaction, vascular complications and infection were reviewed in detail. The possibility of stenting and other percutaneous intervention with associated risk was reviewed. The possible need for emergent coronary artery bypass surgery was reviewed. After a discussion about the above, and havinganswered all questions posed, the patient was provided with a consent which was reviewed and signed. ASA: 2: Patient with mild systemic disease Mallampati: III: only the base of the uvula can be seen Sedation Plan: moderate (conscious sedation) Assessment and Plan: Proceed with cardiac cath, see progress note from today for further details. JOCY Marie 04/17/2023 Pager [phone] * Plan of Care - Sudhakar Smith RN - 04/17/2023 5:48 AM EST Pt admitted from OSH. Alert and oriented X4. Pt's SP02@ 86 during sleep.1 liter of oxygen administered. Heart rhythm is monitoring SB. EKG completed as ordered. All other vitals signs are stable, No chest pain reported. Heparin infusing @ 1500U/KG/HR. No bleeding noted. UFH due 09:15 am. Pending ECHO, CT chest and Heart Cath. Pt is NPO for heart cath. AST sample is hemolyzed. MD notified. He advised that the sample will be reorder. Problem: Pain Acute Goal: Acceptable Pain Control and Functional Ability Outcome: Ongoing (Interventions Implemented as Appropriate) Problem: Chest Pain Goal: Resolution of Chest Pain Symptoms Outcome: Ongoing (Interventions Implemented as Appropriate) Problem: Adjustment to Illness (Heart Failure) Goal: Optimal Coping Outcome: Ongoing (Interventions Implemented as Appropriate) documented in this encounter Plan of Treatment Upcoming Encounters Date Type Department Care Team (Late st Contact Info) Description 10/08/2023 8:30 AM EDT Tech [place] [address] Jose Cook 10/08/2023 9:30 AM EDT Office Visit Vascular Surgery at [address] MD [facility] [place] [address] 10/21/2023 10:30 AM EDT Appointment Nuclear Medicine at [address]yes, [facility] [address] 10/21/2023 11:30 AM EDT Appointment Nuclear Medicine at [place] [phone] Mary Reyes, [facility] [place] [address] 10/21/2023 12:30 PM EDT Appointment Nuclear Medicine at [place] [phone] Mary Reyes [facility] [place] [address] 10/21/2023 1:30 PM EDT Appointment Nuclear Medicine at [place] [phone] Mary Reyes [facility] [place] [address] 10/21/2023 2:30 PM EDT Appointment Nuclear Medicine at [place] [phone] Mary Reyes, [facility] [place] [address] 10/26/2023 4:00 PM EDT Office Visit Cardiology at [address] [phone] Jaspreet Kinsey MD [facility] [place] [address] 10/28/2023 9:00 AM EDT Office Visit [place] [address] 10/29/2023 10:00 AM EDT Clinical Support [place] [address] 10/29/2023 10:15 AM EDT Procedure visit [place] [address] 11/01/2023 5:00 PM EDT Office [place] [phone] Selene Browning, PhD [facility] [place] [address] 11/22/2023 4:40 PM EDT Office Visit Cardiology at [address] [phone] Porsha Mcdaniels MD [facility] [place] [address] 12/13/2023 10:00 AM EDT Clinical Support [place] [phone] [facility] [place] [address] documented as of this encounter Procedures Procedure Name Priority Date/Time Associated Diagnosis Comments MRI CARDIAC MORPHOLOGY FUNCTION WWO CONTRAST Routine 04/21/2023 12:45 PM EST BMP W/FASTING GLUCOSE Routine 04/21/2023 3:40 AM EST HC HEMOGRAM Routine 04/21/2023 3:40 AM EST HC MAGNESIUM, SERUM Routine 04/21/2023 3 :40 AM EST HC TROPONIN T STAT 04/20/2023 4:44 PM EST DUPLEX FOR DVT, ARM, UNILAT Routine 04/20/2023 4:22 PM EST Arm edema HC TROPONIN T STAT 04/20/2023 1:47 PM EST HC VENIPUNCTURE STAT 04/20/2023 10:48 AM EST EKG 12-LEAD STAT 04/20/2023 10:23 AM EST Chest pain, unspecified type BMP W/FASTING GLUCOSE Routine 04/20/2023 3:11 AM EST HC HEMOGRAM Routine 04/20/2023 3:11 AM EST HC VENIPUNCTURE Routine 04/20/2023 3:11 AM EST RESPIRATORY PANEL PCR Routine 04/19/2023 2:05 PM EST URINALYSIS MICROSCOPIC EXAM Routine 04/19/2023 10:25 AM EST URINALYSIS WITH REFLEX CULTURE Routine 04/19/2023 10:25 AM EST URINE CULTURE Routine 04/19/2023 10:25 AM EST ARTERIAL DUPLEX ARM, UNILAT Routine 04/19/2023 9:40 AM EST Swelling of hand, unspecified laterality BMP W/FASTING GLUCOSE Routine 04/19/2023 2:40 AM EST HC HEMOGRAM Routine 04/19/2023 2:40 AM EST HC VENIPUNCTURE Routine 04/19/2023 2:40 AM EST CARDIAC CATHETERIZATION Routine 04/18/19 11:05 AM EST HC VENIPUNCTURE Timed 04/18/2023 8:23 AM EST HC VENIPUNCTURE Timed 04/18/2023 2:10 AM EST BMP W/FASTING GLUCOSE Routine 04/18/2023 2:10 AM EST HEMOGRAM Routine 04/18/2023 2:10 AM EST DIFFERENTIAL, AUTOMATED Routine 04/18/19 2:10 AM EST HC CBC,PLT & AUTO DIFF Routine 2:10 AM EST HC MAGNESIUM, SERUM Routine 04/18/2023 2 :10 AM EST HC LDL CHOLESTEROL, DIRECT Routine 04/18/2023 2:10 AM EST HC HEMOGLOBIN A1C Routine 04/18/2023 2:1 0 AM EST LIPID PANEL (REFLEX DIRECT LDL) Routine 04/18/2023 2:10 AM EST POCT GLUCOSE Routine 04/17/2023 7:44 PM EST HC UNFRACTIONATED HEPARIN (HEP UFH) Timed 04/17/2023 6:01 PM EST HC UNFRACTIONATED HEPARIN (HEP UFH) Timed 04/17/2023 12:45 PM EST ECHO LMTD W CONTRAST W LMTD SPEC DOPP COLOR DOPP Routine 04/17/2023 11:59 AM EST Chest pain, unspecified type Non-ST elevation myocardial infarction (NSTEMI) HC TROPONIN T STAT 04/17/2023 6:43 AM EST HC UNFRACTIONATED HEPARIN (HEP UFH) Timed 04/17/2023 6:43 AM EST EKG 12-LEAD Routine 04/17/2023 3:41 AM EST Chest pain, unspecified type HC TROPONIN T STAT 04/17/2023 3:33 AM EST HC C-REACTIVE PROTEIN Routine 04/17/2023 3:33 AM EST HEMOGRAM Routine 04/17/2023 3:33 AM EST DIFFERENTIAL, AUTOMATED Routine 04/17/19 24 3:33 AM EST HC PARTIAL THROMBOPLASTIN TIME Routine 04/17/2023 3:33 AM EST HC ESR-SEDIMENTATION RATE, BLOOD Routine 04/17/2023 3:33 AM EST HC PROTHROMBIN TIME Routine 04/17/2023 3 :33 AM EST HC CBC,PLT & AUTO DIFF Routine 3:33 AM EST HC THYROID STIMULATING HORMONE, SERUM Routine 04/17/2023 3:33 AM EST HC PHOSPHORUS, SERUM Routine 04/17/2023 3:33 AM EST HC PROBNP Routine 04/17/2023 3:33 AM EST HC MAGNESIUM, SERUM Routine 04/17/2023 3 :33 AM EST HEPATIC FUNCTION PANEL Routine 3:33 AM EST BASIC METABOLIC PANEL (NON-FASTING) STAT 04/17/2023 3:33 AM EST FILM LIBRARY STORAGE ONLY CT CHEST Routine 04/16/2023 12:00 AM EST documented in this encounter Results * [...] who have questions please contact the health animal caretaker that requested 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 ? 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 Following IV administration of 26.5 mCi technetium 99m sestamibi, SPECT-CT of the heart was obtained. Following IV injection of 8.8 mCi 07-xfloas-5-deoxyglucose (FDG) and a standard uptake of approximately [...] obtained. Following IV injection of 8.8 mCi 57-kjneue-2-deoxyglucose (FDG) and astandard uptake of approximately 60 [...] patients who have questions please contactthe health animal caretaker that requested 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 Electronically signed by: Humberto Qureshi MD, [facility]([phone]), at 05/06/2023 11:09 AM Maegan Mike DOOR TO DOOR SELLING AGENT IMG PET ORDERABLE S * MRI Cardiac Morphology Function wwo Contrast (04/21/2023 12:45 PM EST) Anatomical Region Laterality Modality Magnetic Resonan ce Impressions 04/21/2023 5:33 PM EST Normal size of the left ventricle. Abnormal thinning in the left ventricular anterior wall and mild myocardial hypertrophy of the interventricular septum. There is abnormal enhancement in the left ventricular anterior wall which appears to be predominantly mid myocardial with some subendocardial sparing. In addition, there is patchy enhancement in the interventricular septum. Findings are most concerning for an infiltrative disease like sarcoidosis; less typical for amyloidosis or sequela of myocarditis. Hypokinesis of the left ventricular anterior wall. Low normal left ventricular ejection fraction of 55%. Dilated main pulmonary artery can be an indirect sign of pulmonary hypertension. I have personally reviewed the image(s) and the resident's interpretation and agree with the findings, Karon Nur MD at 04/21/2023 5:33 PM Thank you for letting us participate in the care of this patient. ??If you are a health care provider and have any questions regarding this report, please contact the number below. ??For patients who have questions please contact the health animal caretaker that requested 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 ? Narrative 04/21/2023 5:33 PM EST EXAMINATION: MRI CARDIAC MORPHOLOGY FUNCTION WWO CONTRAST CLINICAL HISTORY: Cardiomyopathy, follow up Chest pain. TTE with progressive anterior WMA, non-obstructive LHC. COMPARISON: None. TECHNIQUE: Axial HASTE without contrast. Short and long axis cine steady-state free precession without contrast. ?? Short and long axis rest perfusion and delayed enhancement after intravenous administration of 40 cc of Dotarem Post-processing performed on an independent computer workstation. Patient's calculated body surface area: 2.1 m^2 FINDINGS: Chambers Left ventricle: Normal size of the left ventricle. Mild abnormal thickening of the interventricular septum measures up to 17 mm in end-diastole. Myocardial thinning in the anterior wall of the left ventricle. Right ventricle: Normal morphology and structure. Atria: Moderate dilatation of the left atrium. Borderline size to mild dilatation of the right atrium. Myocardium Non-contrast series: No abnormal myocardial signal on non-contrast imaging. Post-contrast series: Patchy abnormal enhancement in the thickened interventricular septum. In addition, there is diffuse myocardial enhancement in the basilar, mid, and distal anterior wall of the left ventricle which appears to be mid myocardial on the 2-chamber images with some subendocardial sparing. Wall motion abnormalities: The left ventricular anterior wall is hypokinetic. Valves: Mild mitral regurgitation. Pericardium: No pericardial thickening or effusion. Aorta: Normal contour and caliber. Other thoracic great vessels: Dilated main pulmonary artery measures 38 mm. Non-cardiovascular structures: No significant findings. QUANTITATIVE DATA: LEFT VENTRICLE: LV Mass: 103 g LV End-Diastolic Volume: 138 mL LV End-Systolic Volume: 62 mL Stroke Volume: 76 mL LV Ejection Fraction: 55% Cardiac Output: 4.5 L/min Anteroseptal Wall Thickness: 10 mm Posterolateral Wall Thickness: 7 mm End-Diastolic Dimension: 5.7 cm End-Systolic Dimension: 4.2 cm RIGHT VENTRICLE: RV End-Diastolic Volume: 93 mL RV End-Systolic Volume: 31 mL RV Stroke Volume: 62 mL RV Ejection Fraction: 66% Procedure Note Karon Solis MD - 04/21/2023 EXAMINATION: MRI CARDIAC MORPHOLOGY FUNCTION WWO CONTRAST CLINICAL HISTORY: Cardiomyopathy, follow up Chest pain. TTE with progressive anterior WMA, non-obstructive LHC. COMPARISON: None. TECHNIQUE: Axial HASTE without contrast. Short and long axis cine steady-state free precession without contrast. Short and long axis rest perfusion and delayed enhancement afterintravenous administration of 40 cc of Dotarem Post-processing performed on an independent computer workstation. Patient's calculated body surface area: 2.1 m^2 FINDINGS: Chambers Left ventricle: Normal size of the left ventricle. Mild abnormalthickening of the interventricular septum measures up to 17 mm in end-diastole.Myocardial thinning in the anterior wall of the left ventricle. Right ventricle: Normal morphology and structure. Atria: Moderate dilatation of the left atrium. Borderline size to mild dilatation of the right atrium. Myocardium Non-contrast series: No abnormal myocardial signal on non-contrastimaging. Post-contrast series: Patchy abnormal enhancement in the thickened interventricular septum. In addition, there is diffuse myocardialenhancement in the basilar, mid, and distal anterior wall of the left ventricle whichappears to be mid myocardial on the 2-chamber images with some subendocardialsparing. Wall motion abnormalities: The left ventricular anterior wall ishypokinetic. Valves: Mild mitral regurgitation. Pericardium: No pericardial thickening or effusion. Aorta: Normal contour and caliber. Other thoracic great vessels: Dilated main pulmonary artery measures 38mm. Non-cardiovascular structures: No significant findings. QUANTITATIVE DATA: LEFT VENTRICLE: LV Mass: 103 g LV End-Diastolic Volume: 138 mL LV End-Systolic Volume: 62 mL Stroke Volume: 76 mL LV Ejection Fraction: 55% Cardiac Output: 4.5 L/min Anteroseptal Wall Thickness: 10 mm Posterolateral Wall Thickness: 7 mm End-Diastolic Dimension: 5.7 cm End-Systolic Dimension: 4.2 cm RIGHT VENTRICLE: RV End-Diastolic Volume: 93 mL RV End-Systolic Volume: 31 mL RV Stroke Volume: 62 mL RV Ejection Fraction: 66% IMPRESSION Normal size of the left ventricle. Abnormal thinning in the leftventricular anterior wall and mild myocardial hypertrophy of the interventricularseptum. There is abnormal enhancement in the left ventricular anterior wallwhich appears to be predominantly mid myocardial with some subendocardialsparing. In addition, there is patchy enhancement in the interventricular septum.Findings are most concerning for an infiltrative disease like sarcoidosis; lesstypical for amyloidosis or sequela of myocarditis. Hypokinesis of the left ventricular anterior wall. Low normal leftventricular ejection fraction of 55%. Dilated main pulmonary artery can be an indirect sign of pulmonaryhypertension. I have personally reviewed the image(s) and the resident's interpretationand agree with the findings, Karon Nur MD at 04/21/2023 5:33PM Thank you for letting us participate in the care of this patient. If youare a health care provider and have any questions regarding this report,please contact the number below. For patients who have questions please contactthe health animal caretaker that requested 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 Terrence Maloney MD IMG MRI ORDERABLES * Hemogram (04/21/2023 3:40 AM EST) WBC 7.1 4.0 - 9.5 x10(3)/[facility] LABORATORY RBC 4.59 4.00 - 5.21 x10(6)/[facility] LABORATORY Hemoglobin 14.4 11.7 - 15.5 g/dL [facility] Hematocrit 43.0 35.7 - 45.8 % [facility] MCV 93.7 82.6 - 94.4 fL [facility] MCH 31.4 27.1 - 32.0 pg [facility] MCHC 33.5 31.7 - 35.0 g/dL [facility] Platelets 221 145 - 357 x10(3)/[facility] LABORATORY RDWSD 43.5 37.0 - 46.0 [facility] LABORATORY RDWCV 12.6 11.5 - 14.1 % [facility] MPV 11.1 7.6 - 12.9 fL [facility] nRBC % Auto 0.0 % [facility] nRBC Abs Auto 0.000 0.000 - 0.000 x10(3)/mcL [facility] Blood 04/21/2023 3:40 AM EST 04/21/2023 3:58 AM EST Narrative Resulting Agency Comment Spec In Lab Ailyn Knight MD HEMATOLOGY ORDERABLE S Performing Organization Address City/State/[facility] Co de Phone Number [facility] [place] [address] * (ABNORMAL) BMP w/fasting Glucose (04/21/2023 3:40 AM EST) Glucose Fasting 107(H) 65 - 99 mg/dL [facility] Comment: ?Fasting* Glucose Interpretive Criteria Normal ?65-99 mg/dL Impaired Fasting glucose ?100-125 mg/dL Consistent with Diabetes Mellitus ? >or= 126 mg/dL *Fasting is defined as no caloric intake for at least 8 hours In the absence of unequivocal hyperglycemia a plasma glucose value of >or= 126 mg/dL should be repeated on a subsequent day. Diagnosis and Classification of Diabetes Mellitus, Position Statement from the [place] [employer]. ??Diabetes Care, Volume 33, Supplement 1, Mar 2009 BUN 20(H) 8 - 18 mg/dL [facility] Creatinine 1.14 0.70 - 1.20 mg/dL [facility] Sodium 138 135 - 145 mmol/L [facility] Potassium 3.8 3.5 - 5.0 mmol/L [facility] Comment: Please note: ??Patients with WBC >100,000 may have falsely elevated Potassium levels. ??For accurate Potassium quantification in these patients send serum separator tube (gold top) for subsequent determinations. ??Contact the Clinical Chemistry Laboratory if there are any questions. Chloride 106 98 - 107 mmol/L [facility] CO2 22 22 - 31 mmol/L [facility] Anion Gap 10 5 - 15 mmol/L [facility] Calcium 9.2 8.5 - 10.5 mg/dL [facility] Estimated GFR 57(L) >=60 mL/min/1. 73 m?? [facility] Comment: This patient's estimated [...] and symptoms in addition to eGFR. Blood 04/21/2023 3:40 AM EST 04/21/2023 3:58 AM EST Narrative Resulting Agency Comment Spec In Lab Ailyn Knight MD CHEMISTRY ORDERABLES [facility] [place] [place] [address] * Magnesium (04/21/2023 3:40 AM EST) Magnesium 0.90 0.69 - 1.07 mmol/L [facility] Blood 04/21/2023 3:40 AM EST 04/21/2023 3:58 AM EST Narrative Resulting Agency Comment Spec In Lab Ailyn Knight MD CHEMISTRY ORDERABLES Performing Organization Address City/[facility]/ZIP Co de Phone Number [facility] [place] [address] * (ABNORMAL) Troponin (04/20/2023 4:44 PM EST) Troponin-T HS 26(H) <=14 ng/L [facility] Comment: [...] troponin value can be found in the [facility] Laboratory Test Catalog Troponin - [facility] Laboratory Test Catalog Reference: Fourth [place] Definition of Myocardial Infarction. Journal of the [place] [employer] 2018;72:4735-9009 Blood 04/20/2023 4:44 PM EST 04/20/2023 4:53 PM EST Narrative Resulting Agency Comment Spec In Lab Eufemia Copeland MD CHEMISTR[place] [address] * Duplex for DVT, Arm, Unilat (04/20/2023 4:22 PM EST) Text Report Department: Vascular Surgery Lab Patient: [id number] (NEISHA LOIDA) CPT: [id number] Referring Physician: TERRENCE MALONEY ?? Phone: Indications: Right arm edema and tenderness ? DVT Findings: RIGHT: There is non-occlusive thrombus of mixed echogenicity in the cephalic vein in the distal upper arm/antecubital fossa. The axillary, brachial, basilic and forearm cephalic veins are patent and fully compressible with no evidence of thrombus. The internal jugular vein is patent and fully compressible with no evidence of thrombus. While compression maneuvers cannot be performed on the subclavian or innominate veins, there is no pulsed Doppler or color Doppler evidence to suggest thrombus in these veins. 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 No evidence of upper extremity deep venous thrombus. No evidence of internal jugular vein thrombus. Comparison: ?? No previous study in our vascular lab database for comparison. Electronically Signed by: CARLOTA CONTRERAS MD on 2023-04-23 07:33:37 AM VASCUBASE VB Text Report End of Report VASCUBASE 04/20/2023 4:22 PM EST Terrence Maloney MD VASCULAR ORDERABLES VASCUBASE * (ABNORMAL) Troponin (04/20/2023 1:47 PM EST) Troponin-T HS 27(H) <=14 ng/L [facility] Comment: [...] troponin value can be found in the [facility] Test Catalog Troponin - [facility] Test Catalog Reference: Fourth [place] Definition of Myocardial Infarction. Journal of the [place] [employer] 2018;72:0812-2052 Blood 04/20/2023 1:47 PM EST 04/20/2023 2:18 PM EST Narrative Resulting Agency Comment Spec In Lab Eufemia Copeland MD CHEMISTRY ORDERABL ES Performing Organization Address City/[facility]/ZIP Co de Phone Number [facility] [place] [place] [address] * (ABNORMAL) Troponin (04/20/2023 10:48 AM EST) Troponin-T HS 24(H) <=14 ng/L [facility] Comment: [...] troponin value can be found in the [facility] Test Catalog Troponin - [facility] Test Catalog Reference: Fourth [place] Definition of Myocardial Infarction. Journal of the [place] [employer] 2018;72:6398-5441 Blood 04/20/2023 10:4 8 AM EST 04/20/2023 11:03 AM EST Narrative Resulting Agency Comment Spec In Lab Eufemia Copeland MD CHEMISTRY ORDERABL ES Performing Organization Address City/[facility]/ZIP Co de Phone Number [facility] [place] [place] [address] * EKG 12 Lead (04/20/2023 10:23 AM EST) Pathologist [facility] Ventricular rate 60 BPM MUSE SYSTEM Atrial Rate 60 BPM MUSE SYSTEM P-R Interval 170 ms MUSE SYSTEM QRS Duration 86 ms MUSE SYSTEM Q-T Interval 470 ms MUSE SYSTEM QTC Calculated (Bezet) 470 ms MUSE SYSTEM Calculated P [place] 39 degrees MUSE SYSTEM Calculated R [place] 63 degrees MUSE SYSTEM Calculated T [place] -16 degrees MUSE SYSTEM INTERPRETATION Normal sinus rhythm Possible Lateral infarct (cited on or before 17-APR-2023) Marked ST abnormality, possible inferior subendocardial injury Abnormal ECG When compared with ECG of 17-APR-2023 03:41, Premature atrial complexes are no longer Present ST now depressed in Anterior leads ST now depressed in Inferior leads Nonspecific T wave abnormality, worse in Lateral leads Confirmed by MD Eli, Manish [place] ([id number]) on 04/22/2023 12:10:07 PM MUSE SYSTEM 04/20/2023 10:2 3 AM EST 04/22/2023 12:10 PM EST Terrence Maloney MD ECG ORDERABLES MUSE SYSTEM * Hemogram (04/20/2023 3:11 AM EST) [facility] WBC 6.6 4.0 - 9.5 x10(3)/[facility] LABORATORY RBC 4.59 4.00 - 5.21 x10(6)/[facility] LABORATORY Hemoglobin 14.2 11.7 - 15.5 g/dL [facility] Hematocrit 42.7 35.7 - 45.8 % [facility] MCV 93.0 82.6 - 94.4 fL [facility] MCH 30.9 27.1 - 32.0 pg [facility] MCHC 33.3 31.7 - 35.0 g/dL [facility] Platelets 231 145 - 357 x10(3)/[facility] LABORATORY RDWSD 43.6 37.0 - 46.0 fL [facility] RDWCV 12.6 11.5 - 14.1 % [facility] MPV 11.0 7.6 - 12.9 fL [facility] nRBC % Auto 0.0 % [facility] nRBC Abs Auto 0.000 0.000 - 0.000 x10(3)/mcL [facility] Blood 04/20/2023 3:11 AM EST 04/20/2023 3:24 AM EST Narrative Resulting Agency Comment Spec In Lab Ailyn Knight MD HEMATOLOGY ORDERABLE S Performing Organization Address City/State/[facility] Co de Phone Number [facility] [place] [address] * (ABNORMAL) BMP w/fasting Glucose (04/20/2023 3:11 AM EST) Glucose Fasting 107(H) 65 - 99 mg/dL [facility] Comment: ?Fasting* Glucose Interpretive Criteria Normal ?65-99 mg/dL Impaired Fasting glucose ?100-125 mg/dL Consistent with Diabetes Mellitus ? >or= 126 mg/dL *Fasting is defined as no caloric intake for at least 8 hours In the absence of unequivocal hyperglycemia a plasma glucose value of >or= 126 mg/dL should be repeated on a subsequent day. Diagnosis and Classification of Diabetes Mellitus, Position Statement from the [place] [employer]. ??Diabetes Care, Volume 33, Supplement 1, Mar 2009 BUN 20(H) 8 - 18 mg/dL [facility] Creatinine 1.05 0.70 - 1.20 mg/dL [facility] Sodium 139 135 - 145 mmol/L [facility] Potassium 3.6 3.5 - 5.0 mmol/L [facility] Comment: Please note: ??Patients with WBC >100,000 may have falsely elevated Potassium levels. ??For accurate Potassium quantification in these patients send serum separator tube (gold top) for subsequent determinations. ??Contact the Clinical Chemistry Laboratory if there are any questions. Chloride 106 98 - 107 mmol/L [facility] CO2 21(L) 22 - 31 mmol/L [facility] Anion Gap 12 5 - 15 mmol/L [facility] Calcium 9.3 8.5 - 10.5 mg/dL [facility] Estimated GFR 63 >=60 mL/min/1. 73 m?? [facility] Comment: This patient's estimated [...] and symptoms in addition to eGFR. Blood 04/20/2023 3:11 AM EST 04/20/2023 3:24 AM EST Narrative Resulting Agency Comment Spec In Lab Ailyn Knight MD CHEMISTRY ORDERABLES Performing Organization Address City/[facility]/ZIP Co de Phone Number [facility] [place] [address] * Magnesium (04/20/2023 3:11 AM EST) Magnesium 0.91 0.69 - 1.07 mmol/L [facility] Blood 04/20/2023 3:11 AM EST 04/20/2023 3:24 AM EST Narrative Resulting Agency Comment Spec In Lab Ailyn Knight MD CHEMISTRY ORDERABLES Performing Organization Address City/[facility]/ZIP Co de Phone Number [facility] [place] [address] * Respiratory Panel PCR (04/19/2023 2:05 PM EST) Resp Panel Source [employer] Swab [facility] Resp Panel PCR Negative Negative [facility] Comment: Respiratory Panels are performed on the authorGEN, using multiplexed PCR nucleic acid detection. ??Negative results do not preclude respiratory infection and should not be used as the sole basis for diagnosis, treatment or other management decisions. Adenovirus Not Detected Not Detected [facility] Coronavirus HKU1 Not Detected Not Detected [facility] Coronavirus NL63 Not Detected Not Detected [facility] Coronavirus 229E Not Detected Not Detected [facility] Coronavirus OC43 Not Detected Not Detected [facility] SARS-CoV-2 Not Detected Not Detected [facility] Comment: Testing for SARS-CoV-2 (Severe acute respiratory syndrome coronavirus 2) to aid in the diagnosis of COVID-19 is performed using the [employer] Respiratory Panel 2.1 ([employer]) as authorized by the FDA issued Emergency Use Authorization (EUA). This panel also tests for multiple other viral and bacterial pathogens. This assay is intended for In-vitro Diagnostic (IVD) use with nasopharyngeal swabs in viral transport media. The assay is performed based on the instructions for use and additional guidance provided by the FDA. Testing is performed in laboratories within the [facility], each of which is certified under the Clinical Laboratory Improvement Amendments of 1988 (CLIA), 42 U.S.C. section 263a, to perform high-complexity tests. Assay performance has been verified according to clinical laboratory regulatory requirements. The test result for SARS-CoV-2 provided above should be interpreted in combination with the clinical observation, patient history and epidemiological information. For testing of asymptomatic individuals, assay performance characteristics and clinical utility have not been evaluated. ??A result of Not Detected indicates that the viral RNA target is not present but does not preclude SARS-CoV-2 infection. False negative results may occur if a specimen is improperly collected, transported or handled; if amplification inhibitors are present; or if inadequate numbers of viral particles are present in the specimen. When a diagnostic test is negative, the possibility of a false negative result should be considered in the context of a patient's recent exposures and the presence of clinical signs and symptoms consistent with COVID-19. A result of Detected suggests a current or recent infection. Positive and negative predictive values for this test are dependent on disease prevalence. A result of Invalid indicates the inability to conclusively determine the presence or absence of SARS-CoV-2 RNA in the sample which can be due to a variety of factors. ??Collection of a new sample for repeat testing is recommended in the case of an invalid result. CDC COVID-19 criteria for testing on human specimens and clinical management guidance information are available at the CDC Coronavirus Disease 2019 (COVID-19) webpage under Information for Healthcare Professionals (https://www.cdc.gov/coronavirus/2019-ncov/hcp/index.html). Additional information about this and other EUA tests can be found in provider and patient fact sheets at the following FDA website: https://www.fda.gov/medical-devices/vlumusqtvnf-ftxhcqf-8767-ipfif-12-nipmacuhk- use-a zsuumawkedusu-bvctdru-kvdtnxy/tinlh-nxwruvvwtcz-xgeu Human Metapneumovirus Not Detected Not Detected [facility] Human Rhino/Enterovirus Not Detected Not Detected [facility] Influenza A Not Detected Not Detected [facility] Influenza B Not Detected Not Detected [facility] Parainfluenza 1 Not Detected Not Detected [facility] Parainfluenza 2 Not Detected Not Detected [facility] Parainfluenza 3 Not Detected Not Detected [facility] Parainfluenza 4 Not Detected Not Detected [facility] Respiratory Syncytial Virus Not Detected Not Detected [facility] Chlamydophila pneumoniae Not Detected Not Detected [facility] Mycoplasma pneumoniae Not Detected Not Detected [facility] Nasopharyngeal Swab Other / Unknown 04/19 2:05 PM EST 04/19/2023 3:16 PM EST Narrative Resulting Agency Comment Spec In Lab Carrol SANDRA MICROBIOLOGY - GENER AL ORDERABLES [facility] [place] [place] [address] * (ABNORMAL) Urine culture (04/19/2023 10:25 AM EST) Urine Culture 10,000-49,000 cfu/ml mixed mucosal elmer Note: Culture shows multiple bacterial species suggesting mucosal contamination. (A) [facility] Clean Catch Urine 04/19/2023 10:25 AM EST 04/19/2023 12:49 PM EST Narrative Resulting Agency Comment Spec In Lab Carrol SANDRA MICROBIOLOGY - GENER AL ORDERABLES Performing Organization Address City/[facility]/ZIP Co de Phone Number [facility] [place] [address] * (ABNORMAL) Urinalysis Microscopic Exam (04/19/2023 10:25 AM EST) RBC UA 1 0 - 4 /HPF [facility] WBC UA 10(H) 0 - 5 /HPF [facility] Squam Epith UA 4 <=4 /HPF [facility] Hyaline Cast UA 1 0 - 2 /LPF [facility] Clean Catch Urine 04/19/2023 10:25 AM EST 04/19/2023 11:08 AM EST Narrative Resulting Agency Comment Spec In Lab Carrol SANDRA URINE ORDERABLES [facility] [place] [address] * (ABNORMAL) Urinalysis with reflex Culture (04/19/2023 10:25 AM EST) Glucose UA >=1000(Crit ical) Negative mg/dL [facility] Comment: Urinalysis result NOT critical without a combination of Glucose greater than or equal to 500 mg/dL AND Ketones greater than or equal to 80 mg/dL Protein UA Negative Negative mg/dL [facility] Bilirubin UA Negative Negative mg/dL [facility] Comment: Clinical correlation required for positive Urine Bilirubin results as false positive may occur with some drugs and drug related products. If a false positive is suspected a serum total bilirubin should be considered if clinically indicated. Urobilinogen UA Normal Normal mg/dL [facility] pH UA 5.5 5.0 - 8.0 [facility] Blood UA Negative Negative mg/dL [facility] Ketones UA Negative Negative mg/dL [facility] Nitrite UA Negative Negative [facility] Leukocytes UA Small(A) Negative [facility] Appearance UA Clear Clear [facility] Spec [place] UA 1.024 1.005 - 1.030 [facility] Color UA Yellow Yellow [facility] Culture Reflexed Yes [facility] Clean Catch Urine 04/19/2023 10:25 AM EST 04/19/2023 11:08 AM EST Narrative Resulting Agency Comment Spec In Lab Ailyn Knight MD URINE ORDERABLES [facility] [place] [address] * Arterial Duplex Arm, Unilat (04/19/2023 9:40 AM EST) VB Text Report Department: Vascular Surgery Lab Patient: [id number] (LOIDA MADRIGAL) CPT: 77111 Referring Physician: AILYN KNIGHT ?? Phone: Indications: Arm tenderness post cardiac cath in right ulnar artery, ? post cath occlusion Findings: Right ?PSV (cm/s) ??EDV (cm/s) ?? Brachial Artery, Proximal ? 141 ?18 ?? Brachial Artery, Mid ?125 ?14 ?? Brachial Artery, Distal ? 107 ?13 ?? Radial Artery, Proximal ?42 ? 4 ?? Radial Artery, ??Mid ?37 ? 5 ?? Radial Artery, Distal ?25 ? 4 ?? Ulnar Artery, Proximal ?108 ?22 ?? Ulnar Artery, Mid ?79 ?15 ?? Ulnar Artery, Distal ? 81 ?19 ?? Interpretation : RIGHT: Widely patent brachial, radial and ulnar arteries with triphasic Doppler waveforms and no evidence of stenosis/occlu mike. Comparison: ??No previous study in our vascular lab database for comparison. Electronically Signed by: BRIANNA MCDOWELL on 2023-04-26 01:08:34 AM VASCUBASE VB Text Report End of Report VASCUBASE 04/19/2023 9:40 AM EST Ailyn Knight MD VASCULAR ORDERABLES VASCUBASE * Hemogram (04/19/2023 2:40 AM EST) WBC 7.5 4.0 - 9.5 x10(3)/[facility] LABORATORY RBC 4.86 4.00 - 5.21 x10(6)/[facility] LABORATORY Hemoglobin 14.8 11.7 - 15.5 g/dL [facility] Hematocrit 45.5 35.7 - 45.8 % [facility] MCV 93.6 82.6 - 94.4 fL [facility] MCH 30.5 27.1 - 32.0 pg [facility] MCHC 32.5 31.7 - 35.0 g/dL [facility] Platelets 240 145 - 357 x10(3)/[facility] LABORATORY RDWSD 43.8 37.0 - 46.0 [facility] LABORATORY RDWCV 12.7 11.5 - 14.1 % [facility] MPV 11.0 7.6 - 12.9 [facility] LABORATORY nRBC % Auto 0.0 % [facility] nRBC Abs Auto 0.000 0.000 - 0.000 x10(3)/[facility] LABORATORY Blood 04/19/2023 2:40 AM EST 04/19/2023 2:57 AM EST Narrative Resulting Agency Comment Spec In Lab Ailyn Knight MD HEMATOLOGY ORDERABLE S Performing Organization Address City/State/[facility] Co de Phone Number [facility] [place] [address] * (ABNORMAL) BMP w/fasting Glucose (04/19/2023 2:40 AM EST) Glucose Fasting 106(H) 65 - 99 mg/dL [facility] Comment: ?Fasting* Glucose Interpretive Criteria Normal ?65-99 mg/dL Impaired Fasting glucose ?100-125 mg/dL Consistent with Diabetes Mellitus ? >or= 126 mg/dL *Fasting is defined as no caloric intake for at least 8 hours In the absence of unequivocal hyperglycemia a plasma glucose value of >or= 126 mg/dL should be repeated on a subsequent day. Diagnosis and Classification of Diabetes Mellitus, Position Statement from the [place] [employer]. ??Diabetes Care, Volume 33, Supplement 1, Mar 2009 BUN 22(H) 8 - 18 mg/dL [facility] Creatinine 1.11 0.70 - 1.20 mg/dL [facility] Sodium 139 135 - 145 mmol/L [facility] Potassium 4.0 3.5 - 5.0 mmol/L [facility] Comment: Please note: ??Patients with WBC >100,000 may have falsely elevated Potassium levels. ??For accurate Potassium quantification in these patients send serum separator tube (gold top) for subsequent determinations. ??Contact the Clinical Chemistry Laboratory if there are any questions. Chloride 105 98 - 107 mmol/L [facility] CO2 20(L) 22 - 31 mmol/L [facility] Anion Gap 14 5 - 15 mmol/L [facility] Calcium 9.5 8.5 - 10.5 mg/dL [facility] Estimated GFR 59(L) >=60 mL/min/1. 73 m?? [facility] Comment: This patient's estimated [...] and symptoms in addition to eGFR. Blood 04/19/2023 2:40 AM EST 04/19/2023 2:57 AM EST Narrative Resulting Agency Comment Spec In Lab Ailyn Knight MD CHEMISTRY ORDERABLES [facility] [place] [place] [address] * Magnesium (04/19/2023 2:40 AM EST) Magnesium 0.97 0.69 - 1.07 mmol/L [facility] Blood 04/19/2023 2:40 AM EST 04/19/2023 2:57 AM EST Narrative Resulting Agency Comment Spec In Lab Ailyn Knight MD CHEMISTRY ORDERABLES Performing Organization Address [facility]/ZIP Co de Phone Number [facility] [place] [address] * CARDIAC CATHETERIZATION (04/18/2023 11:05 AM EST) Anatomical Region Laterality Modality Other Narrative 04/19/2023 6:57 AM EST ?[facility] ? Cardiac Catheterization/Intervention Report ? Patient Name: Neisha, Loida ? Procedure Date: 04/18/2023 ? A #: [id number] ? Primary Physician: Young, Dustin N ? Case #: [id number] ? File Name: [id number] ? Catheterization Order Number: [id number] ? [facility] ? Final Report [place], [place] ? Patient Name: ? Loida Neisha ? ID#: ?[id number] ? : ?1970 ? Procedure Date: ? April 18, 2023 ?Case #: ? [id number] ? Room: ? 6 ? Case Physician: ? Dustin Carrasco M.D. ?Start: ?10:26 ? Admission: ??04/16/2023 ? Referring Physician: ??Stuart Iyer, M.D. ? Procedures: ?* Coronary Angiography ?* Left Heart Catheterization ? History ?Loida Madrigal is a 53 year old woman. She has hypertension. The ?patient's smoking status is Never. She has hypercholesterolemia managed ?with lipid therapy. The patient is status post an acute non-ST elevation ?myocardial infarction as well as a remote myocardial infarction. She has ?a history of atrial fibrillation/atrial flutter. The patient also has a ?history of chronic obstructive pulmonary disease. Prior to the initiation ?of this procedure, the patient was designated as ASA Class III. The CSHA ?clinical frailty scale is 4: Vulnerable. ? Diagnostic Tests: ?Prior Coronary Angiography: ? Prior coronary angiography was performed on 08/30/2019 and showed no ? CAD. LV ejection fraction within 6 months is 61%. ?Electrocardiography: ? EKG was assessed by ECG. EKG was Abnormal. EKG showed other ? abnormality. ?Stress or Imaging Studies: ? A cardiac CT angiogram was performed on 09/28/2022 and showed ? non-obstructive CAD. Cardiac calcium score was performed on ? 09/28/2022 and showed a calcium score of 182. ?Medications Prior to Procedure: ? Aspirin and Statin. ? Indications for Diagnostic Cath: ?The priority of the diagnostic procedure was Urgent. 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 Chest pain symptom ?assessment was: Typical Angina. ? Technique: ?A 6 SLFr sheath was inserted in the right ulnar artery utilizing the ?Seldinger technique. The right coronary artery was injected utilizing a ?5Fr JR 4 catheter. A 5Fr EBU 3.5 catheter was used to inject the left ?coronary artery. Left ventricular pressure was performed utilizing a 5Fr ?JR 4 catheter. 5,000 units of heparin were administered. A total of 100cc ?of Omnipaque were opened, 65cc of Omnipaque were administered and 35cc of ?Omnipaque were wasted. Radiation: Fluoro time was 9.5 minutes, dose area ?product was 45.00 Gy/cm2 and air kerma was 576 mGY. See the case log for ?additional details. ?The patient received the following medications prior to and during the ?procedure: ? Unfractionated Heparin. ? Hemodynamics: ?Left Heart Pressures ? Resting: ? Syst Diast ? EDP ?a ?v ? m ?Ao 100 ?? 58 ?74 ?LV 97 ?8 ? Coronary Angiography: ?Dominance: Right ?Left Main ? There was mild diffuse (<=25% stenosis) disease of the entire vessel ? segment of the left main artery. ?Left Anterior Descending ? There was mild diffuse (<=25% stenosis) disease of the entire vessel ? segment of the left anterior descending artery (LAD). ??The ostial ? segment of the LAD had a single discrete 25% stenosis. ?Left Circumflex ? There was mild diffuse (<=25% stenosis) disease of the entire vessel ? segment of the left circumflex artery (LCX). ?Right Coronary Artery ? There was mild diffuse (<=25% stenosis) disease of the entire vessel ? segment of the right coronary artery (RCA). ? Vascular Access: ?Vascular Access Management: ? Mechanical Compression of the right radial artery access site was ? performed. ? Conclusions: ?* Nonobstructive coronary artery disease ? Complications/Events: ?The patient had no complications during these procedures. ? Post Procedure Fluid Recommendations: ?IV fluid at 490 mL/hr for 4 hours for a total of 1,960 mL. These ?recommendations are made at the time of the procedure. Patient and ?provider preferences or a changing clinical situation may require ?modification of this regimen. ?The attending physician was present for the entire procedure. ?Dr. Dustin Carrasco M.D. was present during the moderate sedation ?intraservice time as documented by the sedation nurse. ??Case time = 00:28. ?Dr. Dustin Carrasco M.D. performed the coronary angiography and left heart ?catheterization. ? Dustin Carrasco M.D. ? Electronically Signed by: Dustin Carrasco M.D. ? Report Finalized: 04/18/2023 ??12:13 ? Report Last Ammended: 05/03/2023 ??07:49 ? Procedure Note Dustin Carrasco MD - 05/03/2023 [facility] Cardiac Catheterization/Intervention Report Patient Name: Loida Madrigal Procedure Date: 04/18/2023 A #: [id number] Primary Physician: Dustin Carrasco Case #: [id number] File Name: [id number] Catheterization Order Number: [id number] [facility] FinalReport [place], [place] Patient Name: Loida Madrigal ID#:[id number] :1970 Procedure Date: April 18, 2023 Case #: [id number] Room: 6 Case Physician: Dustin Carrasco M.D. Start: 10: Admission:04/16/2023 Referring Physician: Stuart Iyer M.D. Procedures: * Coronary Angiography * Left Heart Catheterization History Loida Madrigal is a 53 year old woman. She has hypertension. The patient's smoking status is Never. She has hypercholesterolemiamanaged with lipid therapy. The patient is status post an acute non-STelevation myocardial infarction as well as a remote myocardial infarction. Shehas a history of atrial fibrillation/atrial flutter. The patient alsohas a history of chronic obstructive pulmonary disease. Prior to theinitiation of this procedure, the patient was designated as ASA Class III. [facility]: Vulnerable. Diagnostic Tests: Prior Coronary Angiography: Prior coronary angiography was performed on 08/30/2019 andshowed no CAD. LV ejection fraction within 6 months is 61%. Electrocardiography: EKG was assessed by ECG. EKG was Abnormal. EKG showed other abnormality. Stress or Imaging Studies: A cardiac CT angiogram was performed on 09/28/2022 and showed non-obstructive CAD. Cardiac calcium score was performed on 09/28/2022 and showed a calcium score of 182. Medications Prior to Procedure: Aspirin and Statin. Indications for Diagnostic Cath: The priority of the diagnostic procedure was Urgent. 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 Chest pain symptom assessment was: Typical Angina. Technique: A 6 SLFr sheath was inserted in the right ulnar artery utilizing the Seldinger technique. The right coronary artery was injectedutilizing a 5Fr JR 4 catheter. A 5Fr EBU 3.5 catheter was used to inject theleft coronary artery. Left ventricular pressure was performed utilizing a5Fr JR 4 catheter. 5,000 units of heparin were administered. A total op285rs of Omnipaque were opened, 65cc of Omnipaque were administered egf94dq of Omnipaque were wasted. Radiation: Fluoro time was 9.5 minutes, dosearea product was 45.00 Gy/cm2 and air kerma was 576 mGY. See the case logfor additional details. The patient received the following medications prior to and duringthe procedure: Unfractionated Heparin. Hemodynamics: Left Heart Pressures Resting: Syst Diast EDP a v m Ao 100 58 74 LV 97 8 Coronary Angiography: Dominance: Right Left Main There was mild diffuse (<=25% stenosis) disease of the entirevessel segment of the left main artery. Left Anterior Descending There was mild diffuse (<=25% stenosis) disease of the entirevessel segment of the left anterior descending artery (LAD). Theostial segment of the LAD had a single discrete 25% stenosis. Left Circumflex There was mild diffuse (<=25% stenosis) disease of the entirevessel segment of the left circumflex artery (LCX). Right Coronary Artery There was mild diffuse (<=25% stenosis) disease of the entirevessel segment of the right coronary artery (RCA). Vascular Access: Vascular Access Management: Mechanical Compression of the right radial artery access sitewas performed. Conclusions: * Nonobstructive coronary artery disease Complications/Events: The patient had no complications during these procedures. Post Procedure Fluid Recommendations: IV fluid at 490 mL/hr for 4 hours for a total of 1,960 mL. These recommendations are made at the time of the procedure. Patient and provider preferences or a changing clinical situation may require modification of this regimen. The attending physician was present for the entire procedure. Dr. Dustin Carrasco M.D. was present during the moderate sedation intraservice time as documented by the sedation nurse. Case time =00:28. Dr. Dustin Carrasco M.D. performed the coronary angiography and leftheart catheterization. Dustin Carrasco M.D. Electronically Signed by: Dustin Carrasco M.D. Report Finalized: 04/18/2023 12:13 Report Last Ammended: 05/03/2023 07:49 Dustin Carrasco MD CARDIAC CATH ORDERAB LES * Heparin (unfractionated) Level (04/18/2023 8:23 AM EST) Heparin UFH Level 0.39 IU/mL [facility] Comment: Heparin (anti-Xa) levels [...] cardiac surgery): 0.1 ? 0.3 IU/mL Blood 04/18/2023 8:23 AM EST 04/18/2023 8:59 AM EST Narrative Resulting Agency Comment Spec In Lab Terrence Maloney MD HEMATOLOGY ORDERABLE S [facility] [place] [address] * Differential, Automated (04/18/2023 2:10 AM EST) Neutrophils % 51.4 % [facility] Neutr Abs (ANC) 3.43 1.70 - 6.10 x10(3)/[facility] Lymphocytes % 33.8 % [facility] Lymphocytes Abs 2.2 0.9 - 3.2 x10(3)/[facility] Monocytes % 9.9 % [facility] Monocyte Abs 0.7 0.3 - 0.9 x10(3)/[facility] Eosinophils % 3.9 % [facility] Eosinophils Abs 0.3 0.0 - 0.4 x10(3)/[facility] Basophils % 0.8 % [facility] Basophils Abs 0.0 0.0 - 0.1 x10(3)/[facility] Immature Gran % 0.20 % [facility] Comment: Immature granulocytes(IG's)percentage and absolute count will include metamyelocytes, myelocytes, and promyelocytes. Blood smears from CBCs yielding IG's will be scanned manually for concordance. If this scan disagrees with the automated IG or if promyelocytes are noted, a manual differential will be performed. Shonda Gran Abs 0.01 0.00 - 0.04 x10(3)/[facility] Blood 04/18/2023 2:10 AM EST 04/18/2023 2:44 AM EST Narrative Resulting Agency Comment Spec In Lab Terrence Maloney MD HEMATOLOGY ORDERABLE S Performing Organization Address City/[facility] Co de Phone Number [facility] [place] [address] * Hemogram (04/18/2023 2:10 AM EST) WBC 6.7 4.0 - 9.5 x10(3)/[facility] RBC 4.93 4.00 - 5.21 x10(6)/[facility] Hemoglobin 15.2 11.7 - 15.5 g/dL [facility] Hematocrit 44.9 35.7 - 45.8 % [facility] MCV 91.1 82.6 - 94.4 fL [facility] MCH 30.8 27.1 - 32.0 pg [facility] MCHC 33.9 31.7 - 35.0 g/dL [facility] Platelets 233 145 - 357 x10(3)/[facility] RDWSD 42.0 37.0 - 46.0 [facility] RDWCV 12.8 11.5 - 14.1 % [facility] MPV 11.3 7.6 - 12.9 [facility] nRBC % Auto 0.0 % [facility] nRBC Abs Auto 0.000 0.000 - 0.000 x10(3)/[facility] Blood 04/18/2023 2:10 AM EST 04/18/2023 2:44 AM EST Narrative Resulting Agency Comment Spec In Lab Terrence Maloney MD HEMATOLOGY ORDERABLE S [facility] [place] [address] * Heparin (unfractionated) Level (04/18/2023 2:10 AM EST) Heparin UFH Level 0.50 IU/mL [facility] Comment: Heparin (anti-Xa) levels [...] cardiac surgery): 0.1 ? 0.3 IU/mL Blood 04/18/2023 2:10 AM EST 04/18/2023 2:44 AM EST Narrative Resulting Agency Comment Spec In Lab Terrence Maloney MD HEMATOLOGY ORDERABLE S Performing Organization Address [facility] Co de Phone Number [facility] [place] [address] * (ABNORMAL) BMP w/fasting Glucose (04/18/2023 2:10 AM EST) Glucose Fasting 98 65 - 99 mg/dL [facility] Comment: ?Fasting* Glucose Interpretive Criteria Normal ?65-99 mg/dL Impaired Fasting glucose ?100-125 mg/dL Consistent with Diabetes Mellitus ? >or= 126 mg/dL *Fasting is defined as no caloric intake for at least 8 hours In the absence of unequivocal hyperglycemia a plasma glucose value of >or= 126 mg/dL should be repeated on a subsequent day. Diagnosis and Classification of Diabetes Mellitus, Position Statement from the [place] [employer]. ??Diabetes Care, Volume 33, Supplement 1, Mar 2009 BUN 23(H) 8 - 18 mg/dL [facility] Creatinine 1.18 0.70 - 1.20 mg/dL [facility] Sodium 143 135 - 145 mmol/L [facility] Potassium 3.6 3.5 - 5.0 mmol/L [facility] Comment: Please note: ??Patients with WBC >100,000 may have falsely elevated Potassium levels. ??For accurate Potassium quantification in these patients send serum separator tube (gold top) for subsequent determinations. ??Contact the Clinical Chemistry Laboratory if there are any questions. Chloride 107 98 - 107 mmol/L [facility] CO2 24 22 - 31 mmol/L [facility] Anion Gap 12 5 - 15 mmol/L [facility] Calcium 9.2 8.5 - 10.5 mg/dL [facility] Estimated GFR 55(L) >=60 mL/min/1. 73 m?? [facility] Comment: This patient's estimated [...] and symptoms in addition to eGFR. Blood 04/18/2023 2:10 AM EST 04/18/2023 2:44 AM EST Narrative Resulting Agency Comment Spec In Lab Ailyn Knight MD CHEMISTRY ORDERABLES [facility] [place] [address] * Magnesium (04/18/2023 2:10 AM EST) Magnesium 1.02 0.69 - 1.07 mmol/L [facility] Blood 04/18/2023 2:10 AM EST 04/18/2023 2:44 AM EST Narrative Resulting Agency Comment Spec In Lab Ailyn Knight MD CHEMISTRY ORDERABLES Performing Organization Address City/[facility] Co de Phone Number [facility] [place] [address] * LDL Cholesterol, Direct (04/18/2023 2:10 AM EST) LDL Chol Direct 105 mg/dL [facility] Comment: Lowest Risk: <100 mg/dL Lower Risk: 100-129 mg/dL Borderline High Risk: 130-159 mg/dL High Risk: 160-189 mg/dL Very High Risk: >wx=161 mg/dL Blood 04/18/2023 2:10 AM EST 04/18/2023 2:44 AM EST Narrative Resulting Agency Comment Spec In Lab Terrence Maloney MD CHEMISTRY ORDERABLES Performing Organization Address City/[facility] Co de Phone Number [facility] [place] [address] * Hemoglobin A1c (04/18/2023 2:10 AM EST) Pathologist [facility] Hemoglobin A1C 5.6 4.3 - 5.6 % [facility] Comment: Reference Range: 4.3 - 5.6% 5.7 - 6.4% - Increased Risk of Developing Diabetes Mellitus >= 6.5% - Consistent with diagnosis of Diabetes Mellitus In the absence of hyperglycemia (i.e. plasma glucose > 200 mg/dL) or classic symptoms of hyperglycemia a repeat measurement of HbA1c should be performed on a separate sample to confirm the diagnosis. Diagnosis and Classification of Diabetes Mellitus, Diabetes Care 2013; 36: Suppl. 1, S67-14 Est Avg Gluc 115 mg/dL [facility] Blood 04/18/2023 2:10 AM EST 04/18/2023 2:44 AM EST Narrative Resulting Agency Comment Spec In Lab Terrence Maloney MD CHEMISTRY ORDERABLES [facility] [place] [address] * Lipid Panel (Reflex Direct LDL) (04/18/2023 2:10 AM EST) Chol, Total 173 mg/dL [facility] Comment: Lower Risk: <200 mg/dL Average Risk: 200-239 mg/dL Higher Risk: >ur=715 mg/dL Triglycerides 174 mg/dL [facility] Comment: Average Risk/Lower Risk: <150 mg/dL Borderline High Risk: 150-199 mg/dL High Risk: 200-499 mg/dL Very High Risk: >ti=315 mg/dL HDL 44 mg/dL [facility] Comment: Males: ?? Higher Risk: <40 mg/dL Females: ?? Higher Risk: <50 mg/dL LDL Cholesterol 94 mg/dL [facility] Comment: Lowest Risk: <100 mg/dL Lower Risk: 100-129 mg/dL Borderline High Risk: 130-159 mg/dL High Risk: 160-189 mg/dL Very High Risk: >ln=814 mg/dL Chol/HDL Ratio 3.9 ratio [facility] Lipid Interpretation See Note [facility] Comment: Lipid management should be guided by a patient? s ASCVD risk, goals and preferences. ACC/AHA Guidelines recommend high intensity statin if clinical ASCVD or LDL greater than or equal to 190 mg/dL. http://Kaola100url.com/XNF-JSS-Skemriate Adults aged 40-75 with LDL 70-189 mg/dL should have their 10 year ASCVD risk estimated with the ACC/AHA ASCVD risk triple air valve tester http://tools.acc.org/SEJXU-Eqnm-Bmcjsykpw/ Statin should be discussed if risk greater than or equal to 7.5% in non-diabetics. With diabetes, moderate intensity statin is recommended if risk less than 7.5%, high intensity if risk greater than or equal to 7.5%. Annual lipid monitoring on statins is not necessary. Evaluate secondary causes of Triglycerides greater than 500 mg/dL or LDL greater than 190 mg/dL: See table 6 of ACC/AHA Guideline. Lifestyle modification is a critical component of ASCVD risk reduction. Blood 04/18/2023 2:10 AM EST 04/18/2023 2:44 AM EST Narrative Resulting Agency Comment Spec In Lab Terrenec Maloney MD CHEMISTRY ORDERABLES Performing Organization Address [facility] Co de Phone Number [facility] [place] [address] * POCT Glucose (04/17/2023 7:44 PM EST) POC Glucose 128 65 - 199 mg/dL [facility] Comment: Supplemental ranges: <140 mg/dL before meals <180 mg/dL all other times of the day Blood 04/17/2023 7:44 PM EST 04/17/2023 7:44 PM EST Ailyn Knight MD POINT OF CARE TEST O RDERABLES Performing Organization Address [facility] Co de Phone Number [facility] [place] [address] * (ABNORMAL) Heparin (unfractionated) Level (04/17/2023 6:01 PM EST) Heparin UFH Level 1.14(Crit ical) IU/mL [facility] Comment: Critical Result called by ?? MARY CRITICAL Results read back by: ? Marta Callaway at 2023-04-17 19:03:08 Heparin (anti-Xa) levels should be determined in [...] cardiac surgery): 0.1 ? 0.3 IU/mL Blood 04/17/2023 6:01 PM EST 04/17/2023 6:05 PM EST Narrative Resulting Agency Comment Spec In Lab Terrence Maloney MD HEMATOLOGY ORDERABLE S Performing Organization Address City/[facility]/ZIP Co de Phone Number [facility] [place] [address] * (ABNORMAL) Heparin (unfractionated) Level (04/17/2023 12:45 PM EST) Heparin UFH Level 1.39(Crit ical) IU/mL [facility] Comment: Critical Result called by ?? KAFLCASSI CRITICAL Results read back by: ? Marta Callaway at 2023-04-17 13:10:45 Heparin (anti-Xa) levels should be determined in [...] cardiac surgery): 0.1 ? 0.3 IU/mL Blood 04/17/2023 12:4 5 PM EST 04/17/2023 12:52 PM EST Narrative Resulting Agency Comment Spec In Lab Ailyn Knight MD HEMATOLOGY ORDERABLE S Performing Organization Address [facility]/ZIP Co de Phone Number [facility] [place] [address] * ECHO LMTD W CONTRAST W LMTD SPEC DOPP COLOR DOPP (04/17/2023 11:59 AM EST) EF 58 HEART[facility] SYSTEM Anatomical Region Laterality Modality Cardiac Other 04/17/2023 10:2 4 AM EST Narrative 04/17/2023 12:09 PM EST [address] [place] [address] ? Echocardiogram Report Name: LOIDA MADRIGAL ? Study Date: 04/17/2023 10:24 AMBP: 114/64 mmHg ? Patient Location: 4A : 1970 ? Height: 160 cm ? Account: [id number] Age: 53 yrs ? Weight: 98 kg Gender: Female ?BSA: 2.0 m2 Ordering Physician: TERRENCE MALONEY Referring Physician: TERRENCE MALONEY Performed By: HAIM Becerra Reason For Study: Chest pain; NSTEMI Exam Location: [facility]. Interpretation Summary Left ventricle is normal in size and wall thickness. Normal global systolic function with regional wall motion abnormalities as ascribed on the anterior/anterolateral aspect. Right ventricle is normal in size and systolic function. No significant cardiac valve findings. No pericardial effusion. Compared to prior study dated 02/09/2023, the extent of the anterior abnormal wall motion has increased. Procedure Limited - 227[address]. Image enhancement Optison was used for left ventricular opacification. Suboptimal quality. This study is limited because of body habitus. There is sinus bradycardia. Left Ventricle Left ventricle is of normal size. Wall thickness is normal. There is no ventricular septal defect. Left ventricular systolic function is normal. The left ventricular ejection fraction is 58% by Reyes's biplane. There are segmental wall motion abnormalities. Right Ventricle The right ventricle is of normal size. Right ventricular systolic function is normal. Left Atrium The left atrium is normal. There is no evidence for a patent foramen ovale. Right Atrium The right atrium is normal. Aortic Valve The aortic valve is not well visualized. There is no aortic stenosis. There is no aortic regurgitation. Mitral Valve The mitral valve is structurally normal. There is no mitral stenosis. There is mild mitral regurgitation. Tricuspid Valve The tricuspid valve is structurally normal. There is no tricuspid stenosis. There is trace tricuspid regurgitation. Pulmonic Valve The pulmonic valve is not well visualized. There is no valvular pulmonic stenosis. There is no pulmonic valve regurgitation. Great Arteries The aortic root is not well visualized. Ascending aorta is normal in size. The pulmonary artery is not well visualized. Venous Inferior vena cava is normal in size. Inferior vena cava collapse greater than 50% with respiration. Pericardium/Pleural There is no pericardial effusion. Hemodynamics Pulmonary artery hypertension could not be assessed due to inadequate tricuspid regurgitation jet. Left ventricular diastolic function is indeterminate. Ejection Fraction ?2D Measurements ? Volumes EF(MOD-bp): 55.1 % ?IVSd: 1.1 cm ? LAV(MOD- bp) Indexed: ?LVIDd: 4.6 cm ?LVPWd: 0.95 cm ? 26.8 ml/m2 ?LV mass(C)d: 169.1 grams ? EDV(MOD- bp) Indexed: ? 52.8 ml/m2 ?LV mass(C)dI: 84.6 grams/m2 ?ESV(MOD- bp) Indexed: ?asc Aorta Diam: 2.5 cm ?LVOT diam: 1.5 cm ?23.7 ml/m2 ?TAPSE_phl: 2.0 cm ?SV(LVOT): 38.1 ml ? SI(LVOT): 19.1 ml/m2 Doppler LV V1 VTI: 20.9 cm Lat Peak E' Ilir: 3.3 cm/sec Med Peak E' Ilir: 2.9 cm/sec I ?WMSI = 1.56 ? % Normal = 81 ?Segments ??Size X - Cannot ?? 1 - Normal ?? 2 - ? 3 - Akinetic 4 - ?1-2 ? small Interpret ? Hypokinetic ?Dyskinetic ?? 3-5 ? moderate 5 - ? 6-14 ?large Aneurysmal ?15-16 ?? diffuse Procedure Note Jaspreet Kinsey MD - 04/17/2023 [address] [place] [address] Echocardiogram Report Name: NEISHA LOIDA Study Date: 0:24 AMBP: 114/64 mmHg Patient Location: : 1970 Height: 160 cm Account: [id number] Age: 53 yrs Weight: 98 kg Gender: Female BSA: 2.0 m2 Ordering Physician: TERRENCE MALONEY Referring Physician: TERRENCE MALONEY Performed By: HAIM Becerra Reason For Study: Chest pain; NSTEMI Exam Location: [facility]. Interpretation Summary Left ventricle is normal in size and wall thickness. Normal globalsystolic function with regional wall motion abnormalities as ascribed on the anterior/anterolateral aspect. Right ventricle is normal in size and systolic function. No significant cardiac valve findings. No pericardial effusion. Compared to prior study dated 02/09/2023, the extent of the anteriorabnormal wall motion has increased. Procedure Limited - [id number]. Image enhancement Optison was used for left ventricular opacification. Suboptimal quality. This study is limited because of bodyhabitus. There is sinus bradycardia. Left Ventricle Left ventricle is of normal size. Wall thickness is normal. There is no ventricular septal defect. Left ventricular systolic function is normal.The left ventricular ejection fraction is 58% by Reyes's biplane. There aresegmental wall motion abnormalities. Right Ventricle The right ventricle is of normal size. Right ventricular systolic functionis normal. Left Atrium The left atrium is normal. There is no evidence for a patent foramenovale. Right Atrium The right atrium is normal. Aortic Valve The aortic valve is not well visualized. There is no aortic stenosis.There is no aortic regurgitation. Mitral Valve The mitral valve is structurally normal. There is no mitral stenosis.There is mild mitral regurgitation. Tricuspid Valve The tricuspid valve is structurally normal. There is no tricuspidstenosis. There is trace tricuspid regurgitation. Pulmonic Valve The pulmonic valve is not well visualized. There is no valvular pulmonicstenosis. There is no pulmonic valve regurgitation. Great Arteries The aortic root is not well visualized. Ascending aorta is normal in size.The pulmonary artery is not well visualized. Venous Inferior vena cava is normal in size. Inferior vena cava collapse greaterthan 50% with respiration. Pericardium/Pleural There is no pericardial effusion. Hemodynamics Pulmonary artery hypertension could not be assessed due to inadequatetricuspid regurgitation jet. Left ventricular diastolic function is indeterminate. Ejection Fraction 2D Measurements Volumes EF(MOD-bp): 55.1 % IVSd: 1.1 cm LAV(MOD-bp)Indexed: LVIDd: 4.6 cm LVPWd: 0.95 cm 26.8 ml/m2 LV mass(C)d: 169.1 grams EDV(MOD-bp)Indexed: 52.8 ml/m2 LV mass(C)dI: 84.6 grams/m2 ESV(MOD-bp)Indexed: asc Aorta Diam: 2.5 cm LVOT diam: 1.5 cm 23.7 ml/m2 TAPSE_phl: 2.0 cm SV(LVOT): 38.1ml SI(LVOT): 19.1ml/m2 Doppler LV V1 VTI: 20.9 cm Lat Peak E' Ilir: 3.3 cm/sec Med Peak E' Ilir: 2.9 cm/sec I WMSI = 1.56 % Normal = 81 SegmentsSize X - Cannot 1 - Normal 2 - 3 - Akinetic 4 - 1-2small Interpret Hypokinetic Dyskinetic 3-5moderate 5 - 6-14large Aneurysmal 15-16diffuse Terrence Maloney MD ECHO ORDERABLES * (ABNORMAL) Heparin (unfractionated) Level (04/17/2023 6:43 AM EST) Heparin UFH Level 1.41(Crit ical) IU/mL [facility] Comment: Critical Result called by ?? ANASTACIO CRITICAL Results read back by: ? Marta Callaway at 2023-04-17 07:36:05 Heparin (anti-Xa) levels should be determined in [...] cardiac surgery): 0.1 ? 0.3 IU/mL Blood 04/17/2023 6:43 AM EST 04/17/2023 6:52 AM EST Narrative Resulting Agency Comment Spec In Lab Terrence Maloney MD HEMATOLOGY ORDERABLE S Performing Organization Address City/[facility]/ZIP Co de Phone Number [facility] [place] [place] [address] * (ABNORMAL) Troponin (04/17/2023 6:43 AM EST) Troponin-T HS 23(H) <=14 ng/L [facility] Comment: [...] troponin value can be found in the [facility] Test Catalog Troponin - [facility] Test Catalog Reference: Fourth [place] Definition of Myocardial Infarction. Journal of the [place] [employer] 2018;72:4545-3234 Blood 04/17/2023 6:43 AM EST 04/17/2023 6:52 AM EST Narrative Resulting Agency Comment Spec In Lab Terrence Maloney MD CHEMISTRY ORDERABLES Performing Organization Address City/[facility]/ZIP Co de Phone Number [facility] [place] [address] * EKG 12 Lead (04/17/2023 3:41 AM EST) Ventricular rate 47 BPM MUSE SYSTEM Atrial Rate 47 BPM MUSE SYSTEM P-R Interval 186 ms MUSE SYSTEM QRS Duration 90 ms MUSE SYSTEM Q-T Interval 578 ms MUSE SYSTEM QTC Calculated (Bezet) 511 ms MUSE SYSTEM Calculated P [place] 24 degrees MUSE SYSTEM Calculated R [place] 23 degrees MUSE SYSTEM Calculated T [place] 27 degrees MUSE SYSTEM INTERPRETATION Sinus bradycardia with Premature atrial complexes Possible Left atrial enlargement Possible Lateral infarct , age undetermined Prolonged QT Abnormal ECG When compared with ECG of 01-APR-2023 12:28, Premature atrial complexes are now Present Vent. rate has decreased BY ??33 BPM Nonspecific T wave abnormality, improved in Anterior leads Confirmed by MD Angelo Danette ([id number]) on 04/20/2023 8:28:40 PM MUSE SYSTEM 04/17/2023 3:41 AM EST 04/20/2023 8:28 PM EST Terrence Maloney MD ECG ORDERABLES MUSE SYSTEM * Differential, Automated (04/17/2023 3:33 AM EST) Neutrophils % 54.4 % [facility] Neutr Abs (ANC) 4.02 1.70 - 6.10 x10(3)/[facility] Lymphocytes % 32.0 % [facility] Lymphocytes Abs 2.4 0.9 - 3.2 x10(3)/[facility] Monocytes % 8.7 % [facility] Monocyte Abs 0.6 0.3 - 0.9 x10(3)/[facility] Eosinophils % 3.9 % [facility] Eosinophils Abs 0.3 0.0 - 0.4 x10(3)/[facility] Basophils % 0.7 % [facility] Basophils Abs 0.0 0.0 - 0.1 x10(3)/[facility] Immature Gran % 0.30 % [facility] Comment: Immature granulocytes(IG's)percentage and absolute count will include metamyelocytes, myelocytes, and promyelocytes. Blood smears from CBCs yielding IG's will be scanned manually for concordance. If this scan disagrees with the automated IG or if promyelocytes are noted, a manual differential will be performed. Shonda Gran Abs 0.02 0.00 - 0.04 x10(3)/[facility] Blood 04/17/2023 3:33 AM EST 04/17/2023 3:42 AM EST Narrative Resulting Agency Comment Spec In Lab Terrence Maloney MD HEMATOLOGY ORDERABLE S [facility] [place] [address] * Hemogram (04/17/2023 3:33 AM EST) WBC 7.4 4.0 - 9.5 x10(3)/[facility] RBC 4.79 4.00 - 5.21 x10(6)/[facility] Hemoglobin 14.8 11.7 - 15.5 g/dL [facility] Hematocrit 44.3 35.7 - 45.8 % [facility] MCV 92.5 82.6 - 94.4 fL [facility] MCH 30.9 27.1 - 32.0 pg [facility] MCHC 33.4 31.7 - 35.0 g/dL [facility] Platelets 233 145 - 357 x10(3)/[facility] RDWSD 43.4 37.0 - 46.0 fL [facility] RDWCV 12.7 11.5 - 14.1 % [facility] MPV 11.0 7.6 - 12.9 fL [facility] nRBC % Auto 0.0 % [facility] nRBC Abs Auto 0.000 0.000 - 0.000 x10(3)/[facility] Blood 04/17/2023 3:33 AM EST 04/17/2023 3:42 AM EST Narrative Resulting Agency Comment Spec In Lab Terrence Maloney MD HEMATOLOGY ORDERABLE S Performing Organization Address [facility] Co de Phone Number [facility] [place] [address] * Sedimentation rate (04/17/2023 3:33 AM EST) Sed Rate 12 2 - 39 mm/hr [facility] Comment: Effective February 15, 2019 new capillary photometric technology has resulted in a change in reference ranges. It is recommended that each ESR result be reviewed with its own age appropriate reference range. Blood 04/17/2023 3:33 AM EST 04/17/2023 3:42 AM EST Narrative Resulting Agency Comment Spec In Lab Terrence Maloney MD HEMATOLOGY ORDERABLE S Performing Organization Address [facility] Co de Phone Number [facility] [place] [address] * CRP, acute inflammation (04/17/2023 3:33 AM EST) Pathologist [facility] CRP <3.0 <=4.9 mg/L [facility] Blood 04/17/2023 3:33 AM EST 04/17/2023 3:42 AM EST Narrative Resulting Agency Comment Spec In Lab Terrence Maloney MD CHEMISTRY ORDERABLES Performing Organization Address [facility] Co de Phone Number [facility] [place] [address] * (ABNORMAL) Troponin (04/17/2023 3:33 AM EST) Troponin-T HS 24(H) <=14 ng/L [facility] Comment: [...] troponin value can be found in the [facility] Test Catalog Troponin - [facility] Test Catalog Reference: Fourth [place] Definition of Myocardial Infarction. Journal of the [place] [employer] 2018;72:9222-5964 Blood 04/17/2023 3:33 AM EST 04/17/2023 3:42 AM EST Narrative Resulting Agency Comment Spec In Lab Terrence Maloney MD CHEMISTRY ORDERABLES Performing Organization Address [facility] Co de Phone Number [facility] [place] [address] * (ABNORMAL) APTT (04/17/2023 3:33 AM EST) PTT 40(H) 25 - 37 sec [facility] Comment: The PTT is NOT appropriate for heparin monitoring. Use the Anti-Xa level for heparin monitoring (HEP UFH) or LMWH monitoring (HEP LMW). A PTT less than 37 seconds generally indicates adequate hemostasis. Blood 04/17/2023 3:33 AM EST 04/17/2023 3:42 AM EST Narrative Resulting Agency Comment Spec In Lab Terrence Maloney MD HEMATOLOGY ORDERABLE S Performing Organization Address [facility] Co de Phone Number [facility] [place] [address] * (ABNORMAL) Prothrombin Time (04/17/2023 3:33 AM EST) PT 13.3(H) 9.4 - 12.5 sec [facility] INR 1.2 [facility] Comment: An INR <2.0 indicates adequate procoagulant activity for hemostasis in most patients without underlying bleeding disorders, though the INR may not adequately reflect hemostatic capacity in patients with liver disease and synthetic impairment. The recommended target INR range for therapeutic anticoagulation is 2.0 ? 3.0 for most applications, though lower and higher ranges may be appropriate depending on clinical circumstances. Blood 04/17/2023 3:33 AM EST 04/17/2023 3:42 AM EST Narrative Resulting Agency Comment Spec In Lab Terrence Maloney MD HEMATOLOGY ORDERABLE S Performing Organization Address [facility] Co de Phone Number [facility] [place] [address] * Hepatic Function Panel (04/17/2023 3:33 AM EST) Total Protein 6.9 6.1 - 8.0 g/dL [facility] Albumin 4.2 3.2 - 5.2 g/dL [facility] AST Not Perf 0 - 30 [facility] Comment: Unable to quantitate due to sample hemolysis. ??Sample redraw suggested. Called by: Danny Bowles, Read back by: Nyla Cassidy, Date/Time:04/17/23 05:06. ALT 17 0 - 30 unit/L [facility] Alk Phos 59 35 - 105 unit/L [facility] Total Bilirubin 0.4 0.2 - 1.3 mg/dL [facility] Bili, Direct 0.1 0.0 - 0.3 mg/dL [facility] Blood 04/17/2023 3:33 AM EST 04/17/2023 3:42 AM EST Narrative Resulting Agency Comment Spec In Lab Terrence Maloney MD CHEMISTRY ORDERABLES Performing Organization Address [facility] Co de Phone Number [facility] [place] [address] * (ABNORMAL) pro-Brain Natriuretic Peptide (04/17/2023 3:33 AM EST) ProBNP 867(H) <=124 pg/mL [facility] Blood 04/17/2023 3:33 AM EST 04/17/2023 3:42 AM EST Narrative Resulting Agency Comment Spec In Lab Terrence Maloney MD CHEMISTRY ORDERABLES Performing Organization Address City/[facility] Co de Phone Number [facility] [place] [address] * (ABNORMAL) TSH (04/17/2023 3:33 AM EST) TSH 5.93(H) 0.27 - 4.20 mcIU/mL [facility] Comment: Reference Interval (mcIU/mL): Females: ??First Trimester: 0.23-3.88 ??Second Trimester: 0.22-3.90 ??Third Trimester: 0.44-4.66 Blood 04/17/2023 3:33 AM EST 04/17/2023 3:42 AM EST Narrative Resulting Agency Comment Spec In Lab Terrence Maloney MD CHEMISTRY ORDERABLES Performing Organization Address [facility] Co de Phone Number [facility] [place] [address] * Phosphorus (04/17/2023 3:33 AM EST) Phosphorus 4.1 2.5 - 4.5 mg/dL [facility] Blood 04/17/2023 3:33 AM EST 04/17/2023 3:42 AM EST Narrative Resulting Agency Comment Spec In Lab Terrence Maloney MD CHEMISTRY ORDERABLES Performing Organization Address [facility] Co de Phone Number [facility] [place] [address] * Magnesium (04/17/2023 3:33 AM EST) Magnesium 0.99 0.69 - 1.07 mmol/L [facility] Blood 04/17/2023 3:33 AM EST 04/17/2023 3:42 AM EST Narrative Resulting Agency Comment Spec In Lab Terrence Maloney MD CHEMISTRY ORDERABLES [facility] [place] [address] * (ABNORMAL) Basic Metabolic Panel (non-fasting) (04/17/2023 3:33 AM EST) Glucose Lvl 89 65 - 199 mg/dL [facility] Comment:Diabetes: >=200 mg/d L plus symptoms BUN 19(H) 8 - 18 mg/dL [facility] Creatinine 1.19 0.70 - 1.20 mg/dL [facility] Sodium 141 135 - 145 mmol/L [facility] Potassium 4.0 3.5 - 5.0 mmol/L [facility] Comment: Please note: ??Patients with WBC >100,000 may have falsely elevated Potassium levels. ??For accurate Potassium quantification in these patients send serum separator tube (gold top) for subsequent determinations. ??Contact the Clinical Chemistry Laboratory if there are any questions. Chloride 106 98 - 107 mmol/L [facility] CO2 22 22 - 31 mmol/L [facility] Anion Gap 13 5 - 15 mmol/L [facility] Calcium 9.4 8.5 - 10.5 mg/dL [facility] Estimated GFR 54(L) >=60 mL/min/1. 73 m?? [facility] Comment: This patient's estimated [...] and symptoms in addition to eGFR. Blood 04/17/2023 3:33 AM EST 04/17/2023 3:42 AM EST Narrative Resulting Agency Comment Spec In Lab Terrence Maloney MD CHEMISTRY ORDERABLES [facility] [place] [address] * Film Library- Storage Only CT Chest (04/16/2023 12:00 AM EST) Narrative Dicom, Auditing User - 04/17/2023 3:00 AM EST This exam is auto-finalizing. It's purpose is for storage only. Polo SANDRA IMKadi FILM LIBRARY ORD ERABLES documented in this encounter Visit Diagnoses Not on filedocumented in this encounter Admitting Diagnoses Diagnosis NSTEMI (non-ST elevated myocardial infarction) Acute myocardial infarction, subendocardial infarction, episode of care unspecified documented in this encounter Administered Medications Inactive Administered Medications - up to 3 most recent administrations Medication Order MAR Action Action Date Dose Rate Site acetaminophen (Tylenol) tablet 975 mg 975 mg, Oral, EVERY 8 HOURS PRN, Starting on Wed04/19/23 at 0951, Until Aura 04/22/23 at 1956, Pain, Maximum dose of acetaminophen is 4,000 mg from all sources in 24 hours. When ordered for pain, acetaminophen should be given even when other ordered pain medications are indicated., Routine Given 04/19/2023 11:02 AM EST 975 mg amLODIPine (Norvasc) tablet 2.5 mg 2.5 mg, Oral, DAILY, First dose on Wed04/19/23 at 0900, Until Discontinued, Routine Given 04/22/2023 9:24 AM EST 2.5 mg Given 04/21/2023 8:13 AM EST 2.5 mg Given 04/20/2023 8:28 AM EST 2.5 mg apixaban (Eliquis) tablet 5 mg 5 mg, Oral, 2 TIMES DAILY, First dose on Wed04/19/23 at 1030, Until Discontinued, Anticoagulant, Routine, Restricted anticoagulant, choose the most appropriate response: Appoved indication of DVT and/or PE Given 04/22/2023 9:24 AM EST 5 mg Given 04/21/2023 9:01 PM EST 5 mg Given 04/21/2023 8:11 AM EST 5 mg atorvastatin (Lipitor) tablet 40 mg 40 mg, Oral, EVERY EVENING, First dose (after last modification) on 04/19/23 at 1700, Until Discontinued, Routine Given 04/21/2023 5:36 PM EST 40 mg Given 04/20/2023 4:18 PM EST 40 mg Given 04/19/2023 5:40 PM EST 40 mg atropine (0.1 mg/mL) injection 1 mg 1 mg, Intravenous, EVERY 5 MIN PRN, 2 doses, Starting on 04/19/23 at 0431, Until Aura 04/22/23 at 1956, Other, vasovagal episode, Call interventional MD. , Cath (Recovery-Hospital Unit), Routine DULoxetine DR (Cymbalta) capsule 60 mg 60 mg, Oral, DAILY, First dose on 04/17/23 at 0900, Until Discontinued, Routine Given 04/22/2023 9:23 AM EST 60 mg Given 04/21/2023 8:12 AM EST 60 mg Given 04/20/2023 8:30 AM EST 60 mg fentaNYL (pf) (50 mcg/mL) multi-dose injection PRN, Starting on 04/18/23 at 1014, Until 04/18/23 at 1100, Intra-Operative (Intra-Procedure), Routine Given 04/18/2023 10:20 AM EST 25 mcg Righ t Arm Given 04/18/2023 10:14 AM EST 25 mcg R ight Arm gabapentin (Neurontin) capsule 600 mg 600 mg, Oral, NIGHTLY, First dose on 04/17/23 at 2100, Until Discontinued, Routine Given 04/21/2023 9:01 PM EST 600 mg Given 04/20/2023 8:10 PM EST 600 mg Given 04/19/2023 8:00 PM EST 600 mg heparin (porcine) (1,000 units/mL) injection PRN, Starting on 04/18/23 at 1030, Until 04/18/23 at 1100, Intra-Operative (Intra-Procedure), Routine Given 04/18/2023 10:30 AM EST 5,000 Units Right Arm iohexoL (Omnipaque) (350 mg/mL) solution PRN, Starting on 04/18/23 at 1100, Until 04/18/23 at 1100, Intra-Operative (Intra-Procedure), Routine Given 04/18/2023 11:00 AM EST 65 mLs midazolam (pf) (Versed) (1 mg/mL) injection PRN, Starting on 04/18/23 at 1014, Until 04/18/23 at 1100, Intra-Operative (Intra-Procedure), Routine Given 04/18/2023 10:14 AM EST 1 mg Right Arm nitroGLYcerin 100 mcg/mL intracoronary dilution PRN, Starting on 04/18/23 at 1027, Until 04/18/23 at 1100, Intra-Operative (Intra-Procedure), Routine Given 04/18/2023 10:27 AM EST 100 mcg pantoprazole EC (Protonix) tablet 40 mg 40 mg, Oral, DAILY, First dose on 04/17/23 at 0900, Until Discontinued Given 04/22/2023 9:25 AM EST 40 mg Given 04/21/2023 8:11 AM EST 40 mg Given 04/20/2023 8:30 AM EST 40 mg rOPINIRole (Requip) tablet 2 mg 2 mg, Oral, 2 TIMES DAILY, First dose on 04/17/23 at 0900, Until Discontinued, Routine Given 04/22/2023 9:25 AM EST 2 mg Given 04/21/2023 9:01 PM EST 2 mg Given 04/21/2023 8:12 AM EST 2 mg sodium chloride 0.9 % (flush) (BD PosiFlush Normal Saline 0.9) flush 5 mL 5 mL, Intravenous, 2 TIMES DAILY, First dose on 04/17/23 at 0900, Until Discontinued, Routine Given 04/22/2023 9:27 AM EST 5 mLs Given 04/21/2023 9:01 PM EST 5 mLs Given 04/21/2023 8:18 AM EST 5 mLs spironolactone (Aldactone) tablet 25 mg 25 mg, Oral, DAILY, First dose on 04/17/23 at 0900, Until Discontinued, DO NOT SPLIT, CRUSH OR OPEN, Routine Given 04/22/2023 9:25 AM EST 25 mg Given 04/21/2023 8:12 AM EST 25 mg Given 04/20/2023 8:29 AM EST 25 mg topiramate (Topamax) tablet 100 mg 100 mg, Oral, NIGHTLY, First dose on 04/17/23 at 2100, Until Discontinued, Routine Given 04/21/2023 9:01 PM EST 100 mg Given 04/20/2023 8:11 PM EST 100 mg Given 04/19/2023 8:00 PM EST 100 mg torsemide (Demadex) tablet 20 mg 20 mg, Oral, DAILY, First dose on 04/17/23 at 0900, Until Discontinued, Routine Given 04/22/2023 9:24 AM EST 20 mg Given 04/21/2023 8:12 AM EST 20 mg Given 04/20/2023 8:30 AM EST 20 mg verapamiL (Isoptin) (2.5 mg/mL) injection PRN, Starting on 04/18/23 at 1027, Until 04/18/23 at 1100, Administer over 2 Minutes, Intra-Operative (Intra-Procedure) Given 04/18/2023 10:[address] 2.5 mg documented in this encounter Active and Recently Administered Medications Times are shown in EST. Scheduled Medication Order 04/20/2023 04/21/2023 04/22/2023 amLODIPine (Norvasc) tablet 2.5 mg 2.5 mg, Oral, DAILY, First dose on 04/19/23 at 0900, Until Discontinued, Routine 0828 (Given - Provider: Chilo Nickerson RN) 812 (Given - Provider: Charity Jackson RN) 923 (Given - Provider: China Myers) apixaban (Eliquis) tablet 5 mg 5 mg, Oral, 2 TIMES DAILY, First dose on Wed04/19/23 at 1030, Until Discontinued, Anticoagulant, Routine, Restricted anticoagulant, choose the most appropriate response: Appoved indication of DVT and/or PE 08 (Given - Provider: Chilo Nickerson RN)2010 (Given - Provider: Zoila Rooney RN) 810 (Given - Provider: Charity Jackson RN)2100 (Given - Provider: Zoila Rooney RN) 923 (Given - Provider: China Myers) atorvastatin (Lipitor) tablet 40 mg 40 mg, Oral, EVERY EVENING, First dose (after last modification) on Wed04/19/23 at 1700, Until Discontinued, Routine 1618 (Given - Provider: Chilo Nickerson RN) 1736 (Given - Provider: Charity Jackson RN) 1700 (Due) DULoxetine DR (Cymbalta) capsule 60 mg 60 mg, Oral, DAILY, First dose on 04/17/23 at 0900, Until Discontinued, Routine 08 (Given - Provider: Chilo Nickerson RN) 08 (Given - Provider: Charity Jackson RN) 09 (Given - Provider: China Myers) gabapentin (Neurontin) capsule 600 mg 600 mg, Oral, NIGHTLY, First dose on Wed04/17/23 at 2100, Until Discontinued, Routine 2009 (Given - Provider: Zoila Rooney RN) 2100 (Given - Provider: Zoila Rooney RN) pantoprazole EC (Protonix) tablet 40 mg 40 mg, Oral, DAILY, First dose on Wed04/17/23 at 0900, Until Discontinued 829 (Given - Provider: Chilo Nickerson RN) 08 (Given - Provider: Charity Jackson RN) 09 (Given - Provider: China Myers) potassium chloride ER (Klor-Con M) crystal tablet 40 mEq (COMPLETED) 40 mEq, Oral, ONCE, 1 dose, On Wed04/20/23 at 0900, potassium chloride ER particle/crystal tablets (Klor-Con M) may be broken in half and each half swallowed separately. Tablets can be dissolved in ~4 ounces of water; allow ~2 minutes to dissolve, stir well and drink immediately. Do not crush, chew, or suck on tablet., Routine 0830 (Given - Provider: Chilo Nickerson RN) rOPINIRole (Requip) tablet 2 mg 2 mg, Oral, 2 TIMES DAILY, First dose on 04/17/23 at 0900, Until Discontinued, Routine 0828 (Given - Provider: Chilo Nickerson RN)2010 (Given - Provider: Zoila Rooney RN) 811 (Given - Provider: Charity Jackson RN)2100 (Given - Provider: Zoila Rooney RN) 924 (Given - Provider: China Myres) sodium chloride 0.9 % (flush) (BD PosiFlush Normal Saline 0.9) flush 5 mL 5 mL, Intravenous, 2 TIMES DAILY, First dose on 04/17/23 at 0900, Until Discontinued, Routine 0831 (Given - Provider: Chilo Nickerson RN)2010 (Given - Provider: Zoila Rooney RN) 817 (Given - Provider: Charity Jackson RN)2100 (Given - Provider: Zoila Rooney RN) 926 (Given - Provider: China Myers) spironolactone (Aldactone) tablet 25 mg 25 mg, Oral, DAILY, First dose on 04/17/23 at 0900, Until Discontinued, DO NOT SPLIT, CRUSH OR OPEN, Routine 08 (Given - Provider: Chilo Nickerson RN) 811 (Given - Provider: Charity Jackson RN) 924 (Given - Provider: China Myers) topiramate (Topamax) tablet 100 mg 100 mg, Oral, NIGHTLY, First dose on 04/17/23 at 2100, Until Discontinued, Routine 2010 (Given - Provider: Zoila Rooney RN) 2100 (Given - Provider: Zoila Rooney RN) torsemide (Demadex) tablet 20 mg 20 mg, Oral, DAILY, First dose on 04/17/23 at 0900, Until Discontinued, Routine 829 (Given - Provider: Chilo Nickerson RN) 811 (Given - Provider: Charity Jackson RN) 923 (Given - Provider: China Myres) torsemide (Demadex) tablet 20 mg (COMPLETED) 20 mg, Oral, ONCE, 1 dose, On Wed04/21/23 at 1500, Routine 1518 (Given - Provider: Charity Jackson RN) PRN Medication Order 04/20/2023 04/21/2023 04/22/2023 acetaminophen (Tylenol) tablet 975 mg 975 mg, Oral, EVERY 8 HOURS PRN, Starting on 04/19/23 at 0951, Until Aura 04/22/23 at 1956, Pain, Maximum dose of acetaminophen is 4,000 mg from all sources in 24 hours. When ordered for pain, acetaminophen should be given even when other ordered pain medications are indicated., Routine atropine (0.1 mg/mL) injection 1 mg 1 mg, Intravenous, EVERY 5 MIN PRN, 2 doses, Starting on 04/19/23 at 0431, Until Aura 04/22/23 at 195, Other, vasovagal episode, Call interventional MD. , Cath (Recovery-Hospital Unit), Routine gadoterate meglumine (Dotarem) (0.5 mMol/mL) injection solution 0-100 mL (COMPLETED) 0-100 mL, Intravenous, ONCE PRN, 1 dose, Starting on Wed04/21/23 at 1245, Until Wed04/21/23 at 1205, Per Protocol, Radiology Contrast, Routine 1205 (Given - Provider: Rigoberto Hernandes) lidocaine (Xylocaine) 1% (10 mg/mL) injection 3 mg 3 mg (0.3 mL), Subcutaneous, ONCE PRN, 1 dose, Starting on 04/17/23 at 0304, Until Aura 04/22/23 at 1956, for discomfort with PIV insertion, Routine loratadine (Claritin) tablet 10 mg 10 mg, Oral, DAILY PRN, Starting on 04/17/23 at 0304, Until Aura 04/22/23 at 1956, allergy, Routine nitroGLYcerin (Nitrostat) disintegrating tablet 0.4 mg 0.4 mg, Sublingual, EVERY 5 MIN PRN, Starting on 04/17/23 at 0304, Until Aura 04/22/23 at 195, Chest pain, May repeat every 5 minutes for a total of three doses. Notify provider if chest pain not relieved with nitroglycerin. Do not administer nitroglycerin if the patient has received or taken phosphodiesterase (PDE-5) inhibitors such as sildenafil, tadalafil or vardenafil within the last 24 to 72 hours., Routine sodium chloride 0.9 % (flush) (BD PosiFlush Normal Saline 0.9) flush 5-20 mL 5-20 mL, Intravenous, EVERY 1 MIN PRN, Starting on 04/17/23 at 0304, Until Aura 04/22/23 at 1956, flush, Flush pertains to all indwelling lines. Flush per protocol found in the job aid using the link provided on this medication record., Routine documented in this encounter Additional Health Concerns Infection Onset Date Last Indicated Resolved Time Rule Out Respiratory 04/19/2023 04/19/2023 024 12:32 PM EST Rule Out COVID-19 04/19/2023 04/19/2023 04/19/2023 12:32 PM EST Rule Out Respiratory 04/19/2023 04/19/2023 024 4:21 PM EST Rule Out COVID-19 04/19/2023 04/19/2023 04/19/2023 4:21 PM EST documented as of this encounter Care Teams Line Installer Relationship Specialty Start Date End Date Polo Pearce PA [address] [place] [address] PCP - General Internal Medicine 06/09/21 documented as of this encounter
--- OUTSIDE RECORDS SUMMARY | 2023-09-20 14:35 | XMS_ITS | Encounter Summary ---
Author Organization [facility] [place] [address] Care Team Providers Care Highway Painter Name Role Phone Polo Pearce Primary Care Provider [phone] Encounter Details Date Type Department Care Team (Late st Contact Info) Description 04/16/2023 Telephone Cardiology at [address] [phone] Vaishnavi Pratt MD [facility] [place] [address] Social History Tobacco Use Types Packs/Day Years Used Date Smoking Tobacco: Never Smokeless Tobacco: Never Alcohol Use Standard Drinks/Week Comments Never 0 (1 standard drink = 0.6 oz pur e alcohol) [facility] Utilities Answer Date Recorded In the past 12 months has [employer] gas, oil, or water [employer] threatened to shut off services in your [...] place to sleep or slept in a detention (including now)? No 06/15/2023 IPV Inpatient Questions [...] AM EDT Tech Visit Vascular Lab at [place] [phone] Jose Cook 10/08/2023 9:30 AM EDT Office [place] [phone] MD [facility] [place] [address] 10/21/2023 10:30 AM EDT Appointment Nuclear Medicine at [place] [phone] Mary Reyes APRN [facility] [place] [address] 10/21/2023 11:30 AM EDT Appointment Nuclear Medicine at [facility] [place] [address] Mary Reyes [facility] [place] [address] 10/21/2023 12:30 PM EDT Appointment Nuclear Medicine at [place] [phone] Mary Reyes [facility] [place] [address] 10/21/2023 1:30 PM EDT Appointment [place] [address] Mary Reyes [facility] [place] [address] 10/21/2023 2:30 PM EDT Appointment [place] [address] Mary Reyes [facility] [place] [address] 10/26/2023 4:00 PM EDT Office Visit Cardiology at [address] [phone] Jaspreet Kinsey MD [facility] [place] [address] 10/28/2023 9:00 AM EDT Office [place] [address] 10/29/2023 10:00 AM EDT Clinical [place] [address] 10/29/2023 10:15 AM EDT Procedure [place] [address] 11/01/2023 5:00 PM EDT Office Visit Gastroenterology at [place] [phone] Selene Browning, PhD [facility] [place] [address] 11/22/2023 4:40 PM EDT Office Visit Cardiology at [place] [phone] Porsha Mcdaniels MD [facility] [place] [address] 12/13/2023 10:00 AM EDT Clinical [place] [phone] [facility] [place] [place] [address] documented as of this encounter Visit Diagnoses Not on filedocumented in this encounter Additional Health Concerns Infection Onset Date Last Indicated Resolved Time Rule Out Respiratory 04/19/2023 04/19/2023 024 12:32 PM EST Rule Out COVID-19 04/19/2023 04/19/2023 04/19/2023 12:32 PM EST Rule Out Respiratory 04/19/2023 04/19/2023 024 4:21 PM EST Rule Out COVID-19 04/19/2023 04/19/2023 04/19/2023 4:21 PM EST documented as of this encounter Care Teams Highway Painter Relationship Specialty Start Date End Date Polo Pearce PA [address] [place] [address] PCP - General Internal Medicine 06/09/21 documented as of this encounter
--- OUTSIDE RECORDS SUMMARY | 2023-09-20 14:35 | XMS_ITS | Encounter Summary ---
[place] [address] Care Team Providers Care Trains Dispatcher Supervisor Name Role Phone Polo Pearce Primary Care Provider [phone] Encounter Details Date Type Department Care Team (Late st Contact Info) Description 04/16/2023 External [place] [phone] Social History Tobacco Use Types Packs/Day Years Used Date Smoking Tobacco: Never Smokeless Tobacco: Never Alcohol Use Standard Drinks/Week Comments Never 0 (1 standard drink = 0.6 oz pur e alcohol) [facility] Utilities Answer Date Recorded In [...] in a intermediate (including now)? No 04/19/2023 IPV Inpatient Questions Answer Date Recorded Does [...] AM EDT Tech Visit Vascular Lab at [place] [phone] Jose Cook 10/08/2023 9:30 AM EDT Office Visit Vascular Surgery at [place] [phone] MD [facility] [place] [address] 10/21/2023 10:30 AM EDT Appointment Nuclear Medicine at [place] [phone] Mary Reyes APRN [facility] [place] [address] 10/21/2023 11:30 AM EDT Appointment [place] [phone] Mary Reyes APRN [facility] [place] [address] 10/21/2023 12:30 PM EDT Appointment [place] [address] Mary Reyes, [facility] [place] [address] 10/21/2023 1:30 PM EDT Appointment [place] [address] [facility] [place] [address] 10/21/2023 2:30 PM EDT Appointment [place] [address] Mary Reyes, [facility] [place] [address] 10/26/2023 4:00 PM EDT Office Visit Cardiology at [address] [phone] Jaspreet Kinsey MD [facility] [place] [address] 10/28/2023 9:00 AM EDT Office [place] [address] 10/29/2023 10:00 AM EDT Clinical [place] [address] 10/29/2023 10:15 AM EDT Procedure [place] [address] 11/01/2023 5:00 PM EDT Office Visit [place] [address] Selene Browning, PhD [facility] [place] [address] 11/22/2023 4:40 PM EDT Office Visit Cardiology at [place] [phone] Porsha Mcdaniels MD [facility] [place] [address] 12/13/2023 10:00 AM EDT Clinical Support [place] [phone] Lucero Romero, [place] [facility] [place] [address] documented as of this encounter Procedures Procedure Name Priority Date/Time Associated Diagnosis Comments ECG SCAN Routine 04/16/2023 6:11 PM EST documented in this encounter Results * Scan Doc: ECG (04/16/2023 6:11 PM EST) Historical Provider MD F[facility]ING MGR SCAN EX T ORDR/RSLT documented in this encounter Visit Diagnoses Not on filedocumented in this encounter Care Teams Trains Dispatcher Supervisor Relationship Specialty Start Date End Date Polo Pearce PA [address] [place] [address] PCP - General Internal Medicine 06/09/21 documented as of this encounter
--- OUTSIDE RECORDS SUMMARY | 2023-09-20 14:35 | XMS_ITS | Encounter Summary ---
Author Organization [facility] [place] [address] Care Team Providers Care National Account Executive Name Role Phone Polo Pearce Primary Care Provider [phone] Reason for Visit * Auth/Cert (Routine) Specialty Diagnoses / Procedures Referred By Jayant harris Referred To Contact Diagnoses Supraventricular tachycardia, unspecified SVT (supraventricular tachycardia) [I47.10] Procedures PRO COMPREHENSIVE EP EVAL ABLATION 3D MAPPING TREATMENT SVT PRO INTRACARDIAC CATHETER ABLATION ARRHYTHMIA ADD ON PRO INTRACARD ELECTROPHYS 3-DIMENS MAPPING PRG ELECTROPHYS EV, L A-V PACE/REC, W INDUCT PRG ELECTROPHYS EV, L A-V PACE/REC, W/O INDUCT PRG STIM/PACING HEART POST IV DRUG INFU PRG INTRACARD ECHO, THER/DX INTERVENT ELECTROPHYSIOLOGY PROCEDURE Jed Tovar MD [facility] [place] [address] [facility] Referral ID Status Reason Start Date Expiration Date Visits Re quested Visits Authorized [id number] 1 1 Encounter Details Date Type Department Care Team (Late st Contact Info) Description 04/01/2023 7:30 AM EST - 04/01/2023 12:00 PM EST Surgery Electrophysiology Lab at [facility] [place] [address] Jed Tovar MD [facility] [place] [address] ELECTROPHYSIOLOGY PROCEDURE Social History Tobacco Use Types Packs/Day Years Used Date Smoking Tobacco: Never Smokeless Tobacco: Never Alcohol Use Standard Drinks/Week Comments Never 0 (1 standard drink = 0.6 oz pur e alcohol) [facility] Utilities Answer Date Recorded In the past 12 months has th e electric, gas, oil, or water company threatened to shut off services in your home? No 02/10/2023 Hunger Vital Sign Answer Date Recorded Within the past 12 months, y ou worried that your food would run out before you got the money to buy more. Never true 02/11/20 23 Within the past 12 months, t he food you bought just didn't last and you didn't have money to get more. Never true 02/10/2023 PRAPARE - Transportation Answer Date Re corded In the past 12 months, has l ack of transportation kept you from medical appointments or from getting medications? No 08/2022 In the past 12 months, has l ack of transportation kept you from meetings, work, or from getting things needed for daily living? No 02/10/2023 Housing Stability Vital Sign Answer Mitchell e Recorded In the last 12 months, was t here a time when you were not able to pay the mortgage or rent on time? No 02/10/2023 In the last 12 months, how many places have you lived? 1 02/10/2023 In the last 12 months, was t here a time when you did not have a steady place to sleep or slept in a penitentiary (including now)? No 02/10/2023 Sex and Gender Information Value Date Recorded Sex Assigned at Not on file Gender Identity Not on file Sexual Orientation Not on file documented as of this encounter Last Filed Vital Signs Vital Sign Reading Time Taken Comments Blood Pressure 97/53 04/01/2023 12:00 PM EST Pulse 77 04/01/2023 12:00 PM EST Temperature 36.8 ??C (98.2 ??F) 04/01/2023 11:[address] Respiratory Rate 12 04/01/2023 12:00 PM EST Oxygen Saturation 99% 04/01/2023 12:00 PM EST Inhaled Oxygen Concentration - - Weight 102 kg (224 lb 12.8 oz) 04/01/2023 6:37 A M EST Height 162.6 cm (5' 4) 04/01/2023 6:37 AM EST Body Mass Index 38.59 04/01/2023 6:37 AM EST documented in this encounter Discharge Summaries * Jaspreet Grimm MD - 04/01/2023 11:48 AM EST Cardiac Electrophysiology Discharge Summary Patient Name: Indira Roque Patient Age: 53 y.o. Language: Chinese Race: White Ethnicity: Not nor Admit date: 04/01/2023 Discharge date and time: 04/01/23 Attending Physician: Jed Tovar MD Discharge Physician: Jed Tovar MD Follow-up Recommendations for Providers: - s/p uncomplicated EP study and SVT ablation - Resume anticoagulation with apixaban in 48 hours - No changes to medications - See below for wound care instructions - A follow up appointment with Dr. 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 Discharge Diagnoses (Hospital Problems) and Secondary Diagnoses (Chronic Problems): There are no hospital problems to display for this patient. Active Non-Hospital Problems Diagnosis Endometriosis Stenosis of left carotid artery greater than 50% Restrictive lung disease secondary to obesity Paresthesia of hand, bilateral Paroxysmal atrial fibrillation Pulmonary embolus SVT (supraventricular tachycardia) Obesity Dyslipidemia Obstructive sleep apnea syndrome Insomnia (HFpEF) heart failure with preserved ejection fraction Restless legs Asthma Operations/Major Procedures: Operations: Procedure(s): ELECTROPHYSIOLOGY PROCEDURE History of Presentation: Indira Roque is a 53 y.o. woman with paroxysmal atrial fibrillation, heart failure with preserved EF, and chronic angina with non-obstructive ASCVD but significant calcifications per coronary CTA. She has documented sustained narrow complex tachycardia on 06/13/2021 in the context of hospitalization at [facility] for NSTEMI. 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 Hospital Course: See procedure note. Same day discharge. 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 Vital Signs at Discharge: BP: 108/70, Heart Rate: 77, Temp: 36.8 ??C (98.2 ??F), Resp: 15, BMI (Calculated): 38.58 Height: 162.6 cm (5' 4) (04/01/23636) Weight: 102 kg (224 lb 12.8 oz) (04/01/23636) Admission Diagnoses: SVT (supraventricular tachycardia) [I47.10] Discharge Diagnoses: SVT (supraventricular tachycardia) [I47.10] Discharge Exam: No changes. Discharge to: home Updated Allergies/ADRs: Allergies Allergen Reactions Clobetasol Rash Other reaction(s): Skin Rash Discharge Medications: Your Medications Continued medications with new dosing Dose Details apixaban 5 mg tablet Commonly known as: Eliquis Take 1 tablet by mouth 2 times daily. Start taking on: April 04, 2023 What changed: These instructions start on April 04, 2023. If you are unsure what to do until then, ask your doctor or other care provider. 5 mg Quantity: 60 tablet Refills: 11 Continued medications, unchanged Dose Details albuteroL 90 mcg/actuation HFA Aerosol Inhaler Inhale 2 puffs into the lungs every 4 hours as needed. Use with spacer 2 puff Refills: 0 atorvastatin 80 mg tablet Commonly known as: [...] days. Refills: 0 fluticasone propionate 50 mcg/actuation [place], Suspension Commonly known as: Flonase 1 spray [...] 20 mg Quantity: 90 tablet Refills: 3 Instructions Given to Patient at Discharge: Patient Instructions DISCHARGE INSTRUCTIONS FOLLOWING YOUR ABLATION Catheter Insertion Area Care - You may take a shower if you wish the morning after the procedure. Wash the area with soap and water. - Look for signs of infection over the next several days. - A little spot of blood at the catheter insertion area is not unusual. A bruise or a small lump under the skin is normal; they generally disappear in three or four days. In some cases you may develop a larger bruise that may appear to extend somewhat down your thigh; this is normal and will resolve, generally within 1-2 weeks. - Expect some mild tenderness over the area where the catheter was inserted. This should improve during the 24 to 48nhours after the procedure. - Take Tylenol if needed and contact your doctor if the discomfort worsens. Avoid higher-dose ibuprofen (greater than 400mg twice daily) due to increased bleeding risk while on blood thinners (does not include aspirin). Problems to Watch For If there is bright red blood flowing from the catheter insertion area STOP what you are doing and lie down. Hold pressure steadily on the area for fifteen minutes. Call for help. If the bleeding does not stop in fifteen minutes, call 911. If there is rapid swelling with a ???black and blue?? color at the catheter insertion area, there may be bleeding inside. Call your doctor if there is any increase in size. Check the insertion site for the next few days at home. Signs of infection are: Redness Swelling Yellow, white, green or brown, foul smelling drainage Increased soreness If you think there is an infection, take your temperature. Then call your doctor. The limb on the side where you had the catheter inserted should look and feel normal in its color, sensation and temperature. If your leg becomes cool, pale, blue or changing color with numbness and tingling, contact your doctor. If you feel faint or dizzy, lie down with your feet elevated. Have someone call the doctor. If you are alert, drink fluids. Activity - Do not bend over, strain or lift heavy objects for 48 hours after the procedure. - Do not participate in active sports for 1 week. - Avoid heavy lifting (greater than 10 pounds) for one week following your procedure. Additional discharge instructions: Pt advised to be vigilant for any of the following clinical findings (or anything else out of the ordinary): Chest discomfort. Inflammation in the form of pericarditis may result in chest pain, which is not uncommon after an ablation procedure for atrial fibrillation. It often may be position-dependent, or will be exacerbated by ventilatory movement. If the patient experiences chest discomfort, it should be medically evaluated to ascertain the significance, and to assess for more serious alternative considerations requiring urgent intervention. If it otherwise is pericarditis, it commonly responds well to anti-inflammatory medication. Fever or sweats, significant malaise. Possibly a consequence of infection. This requires that the Cardiac Electrophysiology Service be contacted, or otherwise an urgent medical assessment should be obtained. Shortness of breath, increased exertional intolerance. A variety of pulmonary or cardiac processes could be responsible for this. This requires that the Cardiac Electrophysiology Service be contacted, or otherwise an urgent medical assessment should be obtained. This is not an exhaustive list. If the patient experiences anything out of the ordinary post-procedure, he/she is encouraged to contact his/her physician or the Cardiac Electrophysiology Service . General Instructions None Future Appointments and Orders Future Appointments and Orders Future Appointments Provider Department Dept Phone 09/21/2023 3:00 PM Jaspreet Kinsey MD Cardiology at [place] Arrive at: [facility] [address] [phone] Discharge References/Attachments None documented in this encounter Discharge Instructions * Patient Instructions* Jaspreet Grimm MD - 04/01/2023 7:38 AM EST DISCHARGE INSTRUCTIONS FOLLOWING YOUR ABLATION Catheter Insertion Area Care - You may take a shower if you wish the morning after the procedure. Wash the area with soap and water. - Look for signs of infection over the next several days. - A little spot of blood at the catheter insertion area is not unusual. A bruise or a small lump under the skin is normal; they generally disappear in three or four days. In some cases you may develop a larger bruise that may appear to extend somewhat down your thigh; this is normal and will resolve, generally within 1-2 weeks. - Expect some mild tenderness over the area where the catheter was inserted. This should improve during the 24 to 48nhours after the procedure. - Take Tylenol if needed and contact your doctor if the discomfort worsens. Avoid higher-dose ibuprofen (greater than 400mg twice daily) due to increased bleeding risk while on blood thinners (does not include aspirin). Problems to Watch For If there is bright red blood flowing from the catheter insertion area STOP what you are doing and lie down. Hold pressure steadily on the area for fifteen minutes. Call for help. If the bleeding does not stop in fifteen minutes, call 911. If there is rapid swelling with a ???black and blue?? color at the catheter insertion area, there may be bleeding inside. Call your doctor if there is any increase in size. Check the insertion site for the next few days at home. Signs of infection are: Redness Swelling Yellow, white, green or brown, foul smelling drainage Increased soreness If you think there is an infection, take your temperature. Then call your doctor. The limb on the side where you had the catheter inserted should look and feel normal in its color, sensation and temperature. If your leg becomes cool, pale, blue or changing color with numbness and tingling, contact your doctor. If you feel faint or dizzy, lie down with your feet elevated. Have someone call the doctor. If you are alert, drink fluids. Activity - Do not bend over, strain or lift heavy objects for 48 hours after the procedure. - Do not participate in active sports for 1 week. - Avoid heavy lifting (greater than 10 pounds) for one week following your procedure. Additional discharge instructions: Pt advised to be vigilant for any of the following clinical findings (or anything else out of the ordinary): Chest discomfort. Inflammation in the form of pericarditis may result in chest pain, which is not uncommon after an ablation procedure for atrial fibrillation. It often may be position-dependent, or will be exacerbated by ventilatory movement. If the patient experiences chest discomfort, it should be medically evaluated to ascertain the significance, and to assess for more serious alternative considerations requiring urgent intervention. If it otherwise is pericarditis, it commonly responds well to anti-inflammatory medication. Fever or sweats, significant malaise. Possibly a consequence of infection. This requires that the Cardiac Electrophysiology Service be contacted, or otherwise an urgent medical assessment should be obtained. Shortness of breath, increased exertional intolerance. A variety of pulmonary or cardiac processes could be responsible for this. This requires that the Cardiac Electrophysiology Service be contacted, or otherwise an urgent medical assessment should be obtained. This is not an exhaustive list. If the patient experiences anything out of the ordinary post-procedure, he/she is encouraged to contact his/her physician or the Cardiac Electrophysiology Service . documented in this encounter Medications at Time of Discharge Medication Sig Dispensed Refills Start Date End Date apixaban (Eliquis) 5 mg tablet Take 1 tablet by mouth 2 times daily. 60 tablet 11 04/04/2023 spironolactone (Aldactone) 25 mg tablet Take 1 tablet by mouth daily. 90 tablet 3 02/12/2023 melatonin 10 mg capsule Take 10 mg by mouth nightly as needed. empagliflozin (Jardiance) 10 mg TabletIndications:Ch ronic heart failure with preserved ejection fraction Take 1 tablet by mouth daily. 90 tablet 1 06/11/2021 rOPINIRole (Requip) 1 mg Tablet Take 2 mg by mouth 2 times daily. 07/16/2020 loratadine (Claritin) 10 mg Tablet Take 10 mg by mouth daily as needed. fluticasone propionate (FLONASE) 50 mcg/actuation [place], Suspension 1 spray by Each Nare route [...] 4 hours as needed. Use with spacer torsemide (Demadex) 20 mg tablet Take 1 tablet by mouth daily. 90 tablet 3 02/12/2023 05/10/2023 atorvastatin (Lipitor) 80 mg tablet Take 1 tablet by mouth every evening. 90 tablet 3 09/28/2022 04/22/2023 omeprazole (PriLOSEC) 20 mg Capsule, Delayed Release(E.C.) Take 20 mg by mouth daily. Infrequent use 01/27/2022 08/25/2023 prochlorperazine (Compazine) 5 mg tablet Take 5 mg by mouth every 6 hours as needed for Nausea. 05/10/2023 erenumab-aooe (Aimovig Autoinjector) 70 mg/mL Auto-Injector Inject subcutaneously every 30 days. 08/13/2020 04/22/2023 documented as of this encounter Progress Notes * Gianna Bland RN - 04/01/2023 3:51 PM EST Pt up to bathroom Tolerated well, voided without difficulty. No bleeding noted from groin sites. Ptdischarged with mom via wc to eat in cafeteria. Told not to walk and pt stated understanding. * Gianna Bland RN - 04/01/2023 3:38 PM EST Pt awake and alert, tolerating HOB at 90 degrees, VSS Mom at bedside. Given discharge instructions,verbalized understanding. Pt in NAD documented in this encounter H&P Notes * Jed Tovar MD - 04/01/2023 7:21 AM EST EP PRE-PROCEDURE H&P Referring Provider: Jaspreet Kinsey MD [facility] [place] [address] [address] Attending Provider: Jed Tovar MD Planned Procedure: EP study and SVT ablation Background and rationale for the procedure: Indira Roque is a 53 y.o. woman with paroxysmal atrial fibrillation, heart failure with preserved EF, and chronic angina with non-obstructive ASCVD but significant calcifications per coronary CTA. She has documented sustained narrow complex tachycardia on 06/13/2021 in the context of hospitalization at [facility] for NSTEMI. 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 Anesthesia: General anesthesia as per the anesthesiology service. Anticoagulation status: Chronically anticoagulated with apixaban without any missed doses in the past 3 weeks, except as instructed prior to this procedure. Last dose of anticoagulation was on 03/28/23. No chronic anticoagulation on board. DARYN will not be needed. Lab Results Component Value Date PT 14.3 (H) 09/26/2022 PTT 39 (H) 09/26/2022 Infection risk & Prophylaxis: No new cough, no fevers, no chills. Allergies Allergen Reactions Clobetasol Rash Other reaction(s): Skin Rash Post-op Plan: Discharge home Interval history: *No new or concerning events or symptoms. Physical Exam: Patient Vitals for the past 24 hrs: Temp Pulse Resp BP SpO2 04/01/23 0637 36.2 ??C (97.2 ??F) 52 16 116/75 97 % Well appearing with no acute symptoms Normal jugular venous pulse Moist mucosae without lesions Regular S1/S2 with no murmur Lungs are clear throughout Palpable femoral pulses bilaterally No peripheral edema, no open wounds or ulcers No current facility-administered medications on file prior to encounter. Current Outpatient Medications on File Prior to Encounter Medication Sig Dispense Refill spironolactone (Aldactone) 25 mg tablet Take 1 tablet by mouth daily. 90 tablet 3 torsemide (Demadex) 20 mg tablet Take 1 tablet by mouth daily. 90 tablet 3 melatonin 10 mg capsule Take 10 mg by mouth nightly as needed. atorvastatin (Lipitor) 80 mg tablet Take 1 tablet by mouth every evening. 90 tablet 3 rOPINIRole (Requip) 1 mg Tablet Take 2 mg by mouth 2 times daily. gabapentin (Neurontin) 300 mg Capsule Take 600 mg by mouth nightly. topiramate (TOPAMAX) 50 mg Tablet Take 100 mg by mouth nightly. DULoxetine (CYMBALTA) 60 mg capsule Take 60 mg by mouth daily. apixaban (Eliquis) 5 mg tablet Take 1 tablet by mouth 2 times daily. 60 tablet 11 omeprazole (PriLOSEC) 20 mg Capsule, Delayed Release(E.C.) Take 20 mg by mouth once as needed. Infrequent use prochlorperazine (Compazine) 5 mg tablet Take 5 mg by mouth every 6 hours as needed for Nausea. erenumab-aooe (Aimovig Autoinjector) 70 mg/mL Auto-Injector Inject subcutaneously every 30 days. empagliflozin (Jardiance) 10 mg Tablet Take 1 tablet by mouth daily. 90 tablet 1 loratadine (Claritin) 10 mg Tablet Take 10 mg by mouth daily as needed. fluticasone propionate (FLONASE) 50 mcg/actuation [place], Suspension 1 spray by Each Nare route as needed. albuterol (PROVENTIL HFA;VENTOLIN HFA) 90 mcg/Actuation inhaler Inhale 2 puffs into the lungs every4 hours as needed. Use with spacer Lab Results Component Value Date WBC 6.5 02/11/2023 HGB 14.4 02/11/2023 HCT 42.9 02/11/2023 MCV 94.3 02/11/2023 PLATELET 240 02/11/2023 Lab Results Component Value Date NA 138 02/11/2023 K 4.0 02/11/2023 CL 109 (H) 02/11/2023 CO2 17 (L) 02/11/2023 BUN 23 (H) 02/11/2023 CREATININE 1.07 02/11/2023 GLUCOSE 97 02/11/2023 GLUCFASTING 103 (H) 06/09/2021 CALCIUM 9.1 02/11/2023 ESTGFR 62 02/11/2023 Lab Results Component Value Date MAGNESIUM 0.91 02/11/2023 I met with the patient today and independently confirmed the history, physical exam, and testing. Ipersonally reviewed and interpreted the available ECGs and additional cardiac testing (echo), as well as the labs. I agree with the detailed management plan as written in the fellow note today. I discussed this plan with the patient, who is also in agreement. Dr. Jed Tovar, electrophysiology attending ([id number]) documented in this encounter Procedure Notes * Heidy Ng RN - 04/01/2023 12:14 PM EST 1130 Patient admitted to PACU. Hand off received from Merlin Lozoya MD and EP RN care assumed. Assessments as documented. Monitors on, alarms audible and individualized to patient. Duoneb given forwheezing 1145 Wheezing still present bu improved 1200 states 5/10 chest pain I feel like someone is sitting on my chest. EP team notified 1220 ECG done 1230 pt declines tylenol- states it makes her jittery Break coverage by Luiza Peña RN [phone]. PACU D/C criteria met at 1300 1345 Hand off to ERWIN Gomez SDP documented in this encounter Miscellaneous Notes * Brief Op Note - Jed Tovar MD - 04/01/2023 11:07 AM EST Brief Operative Note Patient Name: Indira Roque : [id number] MR#: [id number] Case Date: 04/01/2023 Surgeon: Surgeon(s) and Role: * Jed Tovar MD - Primary Preoperative diagnosis: SVT (supraventricular tachycardia) [I47.10] Postoperative diagnosis: AVNRT. 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 Successful ablation of the slow pathway. Double echos remained post ablation. NO sustained tachycardia was seen post ablation. Complications: none Intake: Intraprocedure Crystalloid Total Intake lactated ringers infusion 700.00 mL Total Intake 700 mL Output Blood Loss 10 mL Total Output 10 mL Net Net Volume 690 mL Transfusion No data found in the last 1 encounters. Output: Estimated Blood Loss: 10 mL Urine Output:: (no urine output recorded) Other Output: (no other output recorded) Drains: none Specimens removed during surgery: None Disposition: awakened from anesthesia, extubated and taken to the recovery room in a stable condition, having suffered no apparent untoward event. Condition: doing well without problems Attestation: Jed Tovar MD Case Date: 04/01/2023 I was present and I participated during the entire procedure (does not need to include opening and closing). (Please see the Surgical Encounter Summary for any Implant and Specimen details pertinent to this patient.) Surgical Infection Prevention Bundle Used? N/A documented in this encounter Plan of Treatment Upcoming Encounters Date Type Department Care Team (Late st Contact Info) Description 10/08/2023 8:30 AM EDT Tech [place] [phone] Jose Cook 10/08/2023 9:30 AM EDT Office [place] [phone] Thiago Wya MD [facility] [place] [address] 10/21/2023 10:30 AM EDT Appointment Nuclear [place] [phone] Mary Reyes [facility] [place] [address] 10/21/2023 11:30 AM EDT Appointment Nuclear [place] [phone] Mary Reyes [facility] [place] [address] 10/21/2023 12:30 PM EDT Appointment [place] [address] Mary Reyes, [facility] [place] [address] 10/21/2023 1:30 PM EDT Appointment [place] [address] Mary Reyes, [facility] [place] [address] 10/21/2023 2:30 PM EDT Appointment [place] [address] Mary Reyes, [facility] [place] [address] 10/26/2023 4:00 PM EDT Office Visit Cardiology at [address] [phone] Jaspreet Kinsey MD [facility] [place] [address] 10/28/2023 9:00 AM EDT [place] [address] 10/29/2023 10:00 AM EDT Clinical [place] [address] 10/29/2023 10:15 AM EDT [place] [address] 11/01/2023 5:00 PM EDT Office [place] [id number] Selene Browning, PhD [facility] [address] [place] [id number] 11/22/2023 4:40 PM EDT Office Visit Cardiology at [address] [phone] Porsha Mcdaniels MD [facility] [place] [address] 12/13/2023 10:00 AM EDT Clinical [place] [phone] [facility] [place] [address] documented as of this encounter Procedures Procedure Name Priority Date/Time Associated Diagnosis Comments EKG 12-LEAD STAT 04/01/2023 12:28 PM EST SVT (supraventricular tachycardia) ELECTROPHYSIOLOGY PROCEDURE Routine 04/01/2023 8:05 AM EST SVT (supraventricular tachycardia) EKG 12-LEAD Routine 04/01/2023 7:31 AM EST PAF (paroxysmal atrial fibrillation) BMP W/FASTING GLUCOSE STAT 04/01/2023 7:20 AM EST HEMOGRAM STAT 04/01/2023 7:20 AM EST DIFFERENTIAL, AUTOMATED STAT 04/01/19 7:20 AM EST HC CBC,PLT & AUTO DIFF STAT 7:20 AM EST documented in this encounter Results * EKG 12 Lead (04/01/2023 12:28 PM EST) Ventricular rate 80 BPM MUSE SYSTEM Atrial Rate 80 BPM MUSE SYSTEM P-R Interval 182 ms MUSE SYSTEM QRS Duration 88 ms MUSE SYSTEM Q-T Interval 450 ms MUSE SYSTEM QTC Calculated (Bezet) 519 ms MUSE SYSTEM Calculated P Dafter 44 degrees MUSE SYSTEM Calculated R Dafter 41 degrees MUSE SYSTEM Calculated T Dafter 36 degrees MUSE SYSTEM INTERPRETATION Normal sinus rhythm Possible Left atrial enlargement Nonspecific ST and T wave abnormality Prolonged QT Abnormal ECG When compared with ECG of 01-APR-2023 07:31, (unconfirmed) Nonspecific T wave abnormality now evident in Anterior leads Confirmed by MD YOO SALVATORE ([id number]) on 04/01/2023 1:23:14 PM MUSE SYSTEM 04/01/2023 12:2 8 PM EST 04/01/2023 1:23 PM EST Jed Tovar MD ECG ORDERABLES MUSE SYSTEM * ELECTROPHYSIOLOGY PROCEDURE (04/01/2023 8:05 AM EST) Anatomical Region Laterality Modality Other Narrative 04/03/2023 11:13 AM EST Table formatting from the original result was not included. Images from the original result were not included. ELECTROPHYSIOLOGY STUDY AND SVT ABLATION Ecosystem Ecology Professor: Jed Tovar MD Fellow: Jaspreet Grimm MD Referring: Jaspreet Kinsey MD Patient History: Indira Roque is a 53 y.o. woman with one episode of paroxysmal atrial fibrillation, heart failure with preserved EF, and chronic angina with non-obstructive ASCVD but significant calcifications per coronary CTA. She has documented sustained narrow complex tachycardia on 06/13/2021 in the context of hospitalization at [facility] for NSTEMI. 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 ?? She has frequent palpitations that are identical to the symptoms she has had with those documented episodes of SVT. She presents for EP study and SVT ablation. Procedure: The patient was brought to the Cardiac Electrophysiology laboratory in a post-absorptive, fasting state. Informed consent was obtained. A peripheral IV was in place. Continuous electrocardiographic, blood pressure, oxygen saturation and carbon dioxide monitoring was initiated. Self-adhesive cardioversion patches were positioned on the chest. The patient was administered general anesthesia and intubated. The patient was then prepped and draped in the usual sterile fashion. Both groins were infiltrated with a 50/50 mixture of 2% lidocaine and 0.5% bupivicaine. Sheaths and catheters were placed as follows: Sheath Catheter Insertion site Site 5.5-Fr short exchanged for 8.5-Fr SR0 long sheath ?? 8-Fr [address]/SF ablation catheter Right femoral vein Right atrium 6.5-Fr short 6-Fr decapolar Inquiry catheter Right femoral vein Coronary sinus 6.5-Fr long 4-Fr quadripolar CRD catheter Left femoral vein High lateral right atrium ?? 6.5-Fr short 4-Fr quadripolar CRD-2 catheter Left femoral vein His bundle area 6.5-Fr short 4-Fr quadripolar CRD catheter Left femoral vein Right ventricular apex Pacing and recording was performed from the above catheters, with intervals and refractory periods as documented in the tables below. Tachycardia was elicited with programmed stimulation on and off isoproterenol. Once the tachycardia was induced, various maneuvers were performed to determine its mechanism. These included atrial extrastimuli, atrial burst pacing and ventricular burst pacing. Studies were performed at baseline and on cardio-active drug. The chambers of interest were mapped to identify the abnormal tissue. 3D electroanatomic mapping of the right atrium and coronary sinus was performed with Carto. The ablation catheter was placed adjacent to the abnormal tissue and RF energy was delivered until the abnormal tissue was eliminated. At the conclusion of the procedure, the catheters were removed and hemostasis obtained. The right sided femoral vein access sites were closed using the Vascade MVP closure device. This device delivers a collagen plug into the tissue above the venotomy. It is latex free, MRI compatible and bioabsorbable. Nothing needs to be removed from the body or followed up. The left sided sheaths were removed and hemostasis was achieved via manual compression. The patient was hemodynamically stable, tolerated the procedure well and was transferred in stable condition. Dr. Tovar was present for and participated in the entire procedure. Conduction Intervals (ms) Interval Name Interval length (milliseconds) MO 260 QRS 97 QT 531 AH 159 HV 47 Refractory Periods Atrial ERP 700/300 AV Makayla Conduction AV Wenckebach 360 ms Retrograde Wenckebach 470 ms Medication Summary (drug, amount, route) Isoproterenol at 2-4 mcg/kg/min Radiology Summary Total Fluoro time (min) 1.4 DAP (cGycm2) 53 Findings: 1. The baseline EKG revealed sinus rhythm with prolonged MO and long AH, but otherwise normal intervals and no pre-excitation. 2. The intracardiac intervals were normal (HV = ??47 ms) 3. AV makayla function was abnormal. Dual AV makayla physiology with a AH jump, Theresa sign and multiple echos was demonstrated pre-ablation. 4. VA conduction during pacing from the RV apex was concentric and decremental. No jump in VA time was observed. 5. SVT was induced with extrastimulus pacing and isoproterenol infusion. Tachycardia cycle length was 340 ms. VA time was 40 ms. The activation pattern of the tachycardia was midline with earliest activation seen at the His. Termination of ventricular pacing during ventricular overdrive pacing of the atrium demonstrated a VAHV response, thus ruling out an atrial tachycardia. PPI-TCL was 200 ms. The tachycardia spontaneously terminated with an A. 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 6. RF energy was applied to the area of the slow pathway. Double echos were seen after the first ablation at which point further ablation was performed, again achieving an expected response of slow junctional beats. Double echos continued to be seen after ablation but no further ablation was performed in order to prevent iatrogenic heart block. Immediately following the last application and after a waiting period of 30 minutes, sustained tachycardia could no longer be induced either at baseline or during isoproterenol infusion. Right anterior oblique projection of the right atrium showing His bundle area (yellow) and ablation lesions in the slow pathway zone. Left anterior oblique projection of the right atrium showing His bundle area (yellow) and ablation lesions in the slow pathway zone. Conclusions: 1. 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 2. Successful AVNRT ablation. 3. Resume apixaban in 2 days 4. Follow up with Dr. Tovar in 1-3 ??months at [facility] 5. 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 Procedures performed: SVT ablation (cpt 55949); induce post IV drug (cpt 43373-42-31) I have read, edited and approve of this report: Jed Tovar MD S Cardiac Electrophysiology 04/03/2023 11:10 AM Jed Tovar MD EP PROCEDURE ORDERAB LES * EKG 12 Lead (04/01/2023 7:31 AM EST) Ventricular rate 59 BPM MUSE SYSTEM Atrial Rate 59 BPM MUSE SYSTEM P-R Interval 190 ms MUSE SYSTEM QRS Duration 84 ms MUSE SYSTEM Q-T Interval 528 ms MUSE SYSTEM QTC Calculated (Bezet) 522 ms MUSE SYSTEM Calculated P Dafter 50 degrees MUSE SYSTEM Calculated R Dafter 69 degrees MUSE SYSTEM Calculated T Dafter 16 degrees MUSE SYSTEM INTERPRETATION Sinus bradycardia Lateral infarct , age undetermined Prolonged QT Abnormal ECG When compared with ECG of 22-MAR-2023 16:45, (unconfirmed) T wave inversion no longer evident in Anterior leads QT has lengthened I personally reviewed the tracing and edited the fellows interpretation Confirmed by fellow MD Nas, Max ([id number]) on 04/01/2023 3:35:42 PM Confirmed by MD NAILA, KAUSHIK ([id number]) on 04/02/2023 8:28:26 AM MUSE SYSTEM 04/01/2023 7:31 AM EST 04/02/2023 8:28 AM EST Jed Tovar MD ECG ORDERABLES MUSE SYSTEM * Differential, Automated (04/01/2023 7:20 AM EST) Neutrophils % 53.2 % [facility] Neutr Abs (ANC) 3.51 1.70 - 6.10 x10(3)/[facility] Lymphocytes % 32.4 % [facility] Lymphocytes Abs 2.1 0.9 - 3.2 x10(3)/[facility] Monocytes % 8.7 % [facility] Monocyte Abs 0.6 0.3 - 0.9 x10(3)/[facility] Eosinophils % 4.6 % [facility] Eosinophils Abs 0.3 0.0 - 0.4 x10(3)/[facility] Basophils % 0.8 % [facility] Basophils Abs 0.0 0.0 - 0.1 x10(3)/[facility] Immature Gran % 0.30 % [facility] Comment: Immature granulocytes(IG's)percentage and absolute count will include metamyelocytes, myelocytes, and promyelocytes. Blood smears from CBCs yielding IG's will be scanned manually for concordance. If this scan disagrees with the automated IG or if promyelocytes are noted, a manual differential will be performed. Shonda Gran Abs 0.02 0.00 - 0.04 x10(3)/[facility] Blood 04/01/2023 7:20 AM EST 04/01/2023 7:33 AM EST Narrative Resulting Agency Comment Spec In Lab Jed Tovar MD HEMATOLOGY ORDERABLE S [facility] [place] [address] * (ABNORMAL) Hemogram (04/01/2023 7:20 AM EST) WBC 6.6 4.0 - 9.5 x10(3)/[facility] RBC 4.56 4.00 - 5.21 x10(6)/[facility] Hemoglobin 14.1 11.7 - 15.5 g/dL [facility] Hematocrit 43.1 35.7 - 45.8 % [facility] MCV 94.5(H) 82.6 - 94.4 fL [facility] MCH 30.9 27.1 - 32.0 pg [facility] MCHC 32.7 31.7 - 35.0 g/dL [facility] Platelets 229 145 - 357 x10(3)/[facility] RDWSD 44.7 37.0 - 46.0 [facility] RDWCV 12.7 11.5 - 14.1 % [facility] MPV 11.7 7.6 - 12.9 [facility] nRBC % Auto 0.0 % [facility] nRBC Abs Auto 0.000 0.000 - 0.000 x10(3)/[facility] Blood 04/01/2023 7:20 AM EST 04/01/2023 7:33 AM EST Narrative Resulting Agency Comment Spec In Lab Jed Tovar MD HEMATOLOGY ORDERABLE S [facility] [place] [address] * (ABNORMAL) BMP w/fasting Glucose (04/01/2023 7:20 AM EST) Glucose Fasting 99 65 - 99 mg/dL [facility] Comment: ?Fasting* Glucose Interpretive [...] of Diabetes Mellitus, Position Statement from the [place] [employer]. ??Diabetes Care, Volume 33, Supplement 1, Mar 2009 BUN 22(H) 8 - 18 mg/dL [facility] Creatinine 1.10 0.70 - 1.20 mg/dL [facility] Sodium 139 135 - 145 mmol/L [facility] Potassium 4.2 3.5 - 5.0 mmol/L [facility] Comment: Please note: ??Patients with WBC >100,000 may have falsely elevated Potassium levels. ??For accurate Potassium quantification in these patients send serum separator tube (gold top) for subsequent determinations. ??Contact the Clinical Chemistry Laboratory if there are any questions. Chloride 108(H) 98 - 107 mmol/L [facility] CO2 22 22 - 31 mmol/L [facility] Anion Gap 9 5 - 15 mmol/L [facility] [...] and symptoms in addition to eGFR. Blood 04/01/2023 7:20 AM EST 04/01/2023 7:33 AM EST Narrative Resulting Agency Comment Spec In Lab Jed Tovar MD CHEMISTRY ORDERABLES Performing Organization Address City/State/[facility] [[email or web address]] Co de Phone Number [facility] [place] [address] documented in this encounter Visit Diagnoses Diagnosis SVT (supraventricular tachycardia) Other specified cardiac dysrhythmias PAF (paroxysmal atrial fibrillation) Atrial fibrillation SVT (supraventricular tachycardia) Other specified cardiac dysrhythmias documented in this encounter Administered Medications Inactive Administered Medications - up to 3 most recent administrations Medication Order MAR Action Action Date Dose Rate Site acetaminophen (Tylenol) tablet 975 mg 975 mg, Oral, ONCE, 1 dose, On Aura 04/01/23 at 0715, Administer with a SIP of water only. Maximum dose of acetaminophen is 4,000 mg from all sources in 24 hours., Day of Surgery (Day of Procedure), Routine Given 04/01/2023 7:26 AM EST 975 mg fentaNYL (pf) (50 mcg/mL) multi-dose injection 25 mcg 25 mcg, Intravenous, EVERY 5 MIN PRN, Starting on Aura 04/01/23 at 1112, Until Aura 04/01/23 at 1558, Pain, Mild to moderate pain (1-5 out of 10), Hold for respiratory rate less than 10 per minute. Maximum dose 200 mcg over one hour, including OR administration. If ordered with HYDROmorphone or morphine, give HYDROmorphone or morphine first and use fentaNYL for breakthrough pain., PACU Recovery, Routine Given 04/01/2023 2:13 PM EST 25 mcg Given 04/01/2023 2:00 PM EST 25 mcg ipratropium-albuteroL (Duoneb) 0.5 mg-3 mg(2.5 mg base)/3 mL nebulizer solution 3 mL 3 mL, Nebulization, EVERY 4 HOURS, First dose on Aura 04/01/23 at 1200, Until Discontinued, Routine Given 04/01/2023 11:46 AM EST 3 mLs documented in this encounter Active and Recently Administered Medications Times are shown in EST. Scheduled Medication Order 03/30/2023 03/31/2023 04/01/2023 acetaminophen (Tylenol) tablet 975 mg (COMPLETED) 975 mg, Oral, ONCE, 1 dose, On Aura 04/01/23 at 0715, Administer with a SIP of water only. Maximum dose of acetaminophen is 4,000 mg from all sources in 24 hours., Day of Surgery (Day of Procedure), Routine 0726 (Given - Provid er: Patricia Singer RN) ipratropium-albuteroL (Duoneb) 0.5 mg-3 mg(2.5 mg base)/3 mL nebulizer solution 3 mL 3 mL, Nebulization, EVERY 4 HOURS, First dose on Aura 04/01/23 at 1200, Until Discontinued, Routine 1146 (Given - Provid er: Heidy Ng RN)1600 (Due) Continuous Medication Order 03/30/2023 03/31/2023 04/01/2023 lactated ringers infusion (CANCELED) 1,000 mL, at 100 mL/hr, Intravenous, CONTINUOUS, Starting on Aura 04/01/23 at 0715, Until Aura 04/01/23 at 1558, Day of Surgery (Day of Procedure) 0739 (New Bag - Prov ider: Jaspreet Perry CRNA)1056 (Anesthesia Volume Adjustment - Provider: Jaspreet Perry CRNA) PRN Medication Order 03/30/2023 03/31/2023 04/01/2023 acetaminophen (Tylenol) tablet 650 mg 650 mg, Oral, EVERY 4 HOURS PRN, Starting on Aura 04/01/23 at 1132, Until Aura 04/01/23 at 1800, Pain, Fever, Mild-moderate pain (1-6), Maximum dose of acetaminophen is 4000 mg from all sources in 24 hours. When ordered for pain, acetaminophen should be given even when other ordered pain medications are indicated., Recovery (Recovery-Hospital Unit), Routine fentaNYL (pf) (50 mcg/mL) multi-dose injection 25 mcg (CANCELED)(Linked Group 1) 25 mcg, Intravenous, EVERY 5 MIN PRN, Starting on Aura 04/01/23 at 1112, Until Aura 04/01/23 at 1558, Pain, Mild to moderate pain (1-5 out of 10), Hold for respiratory rate less than 10 per minute. Maximum dose 200 mcg over one hour, including OR administration. If ordered with HYDROmorphone or morphine, give HYDROmorphone or morphine first and use fentaNYL for breakthrough pain., PACU Recovery, Routine 1400 (Given - Provid er: Patricia Singer RN)1413 (Given - Provider: Patricia Singer RN) Linked Groups Order Group 1: fentaNYL (pf) (50 mcg/mL) multi-dose injection 25 mcg (CANCELED)Jump to med 25 mcg, Intravenous, EVERY 5 MIN PRN, Starting on Aura 04/01/23 at 1112, Until Aura 04/01/23 at 1558, Pain, Mild to moderate pain (1-5 out of 10), Hold for respiratory rate less than 10 per minute. Maximum dose 200 mcg over one hour, including OR administration. If ordered with HYDROmorphone or morphine, give HYDROmorphone or morphine first and use fentaNYL for breakthrough pain., PACU Recovery, Routine Or fentaNYL (pf) (50 mcg/mL) multi-dose injection 50 mcg (CANCELED) 50 mcg, Intravenous, EVERY 5 MIN PRN, Starting on Aura 04/01/23 at 1112, Until Aura 04/01/23 at 1558, Pain, Moderate to severe pain (6-10 out of 10), Hold for respiratory rate less than 10 per minute. Maximum dose 200 mcg over one hour, including OR administration. If ordered with HYDROmorphone or morphine, give HYDROmorphone or morphine first and use fentaNYL for breakthrough pain., PACU Recovery, Routine documented in this encounter Care Teams National Account Executive Relationship Specialty Start Date End Date Polo Pearce PA [address] [place] [address] PCP - General Internal Medicine 06/09/21 documented as of this encounter
--- OUTSIDE RECORDS SUMMARY | 2023-09-20 14:35 | XMS_ITS | Encounter Summary ---
Author Organization [facility] [place] [address] Care Team Providers Care Furnace Process Supervisor Name Role Phone Polo Pearce Primary Care Provider [phone] Encounter Details Date Type Department Care Team (Late st Contact Info) Description 04/16/2023 Telephone Cardiology at [address] [phone] Vaishnavi Pratt MD [facility] [place] [address] Social History Tobacco Use Types Packs/Day Years Used Date Smoking Tobacco: Never Smokeless Tobacco: Never Alcohol Use Standard Drinks/Week Comments Never 0 (1 standard drink = 0.6 oz pur e alcohol) [facility] Utilities Answer Date Recorded In the past 12 months has [employer], gas, oil, or water [employer] threatened to shut off services in your [...] in a nursing home (including now)? No 02/10/2023 IPV Inpatient Questions Answer Date Recorded Does [...] encounter Miscellaneous Notes * Telephone Encounter - Vaishnavi Pratt MD - 04/16/2023 7:40 PM EST Images from the original note were not included. Initial Contact Date: 04/16/23 Referring Provider: Jaylon Patient Location: [facility] HPI: 53 y.o. 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 Preceding this, she has documented sustained narrow complex tachycardia on 06/13/2021 in the context of hospitalization at [facility] for NSTEMI. 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 So she was transferred to [facility] for EPS and ablation. She now presents to [facility] with chest discomfortthat started overnight. Upon chart review of Rn notes, patient reports that prior to the procedure she was having chest pain, worse with laying flat. She continued to have feelings of warmth and diaphoresis which improvedmildly immediately after procedure but resumed a few days after. Patient also had an admission to [facility] for chest pain on 02/11/23 and it was felt that her CP was likely pericarditis but her inflammatory markers were normal. CT coronaries were completed for workup. At OSH patient presented with chest pain 8/10 which improved with SL NTGL. Vital signs were stable:HR: 48 BP: 115/[address] was completed. CT shows no PE, but shows a small pericardial effusion and some ground glass opacities. Had COVID in February and chronic cough since then. Troponin is ~500 and ~500. Pertinent Diagnostic Findings: 02/09/23 Left ventricular systolic function is normal. The left ventricular ejection fraction is 59% by Reyes's biplane. There are segmental wall motion abnormalities present; the mid-anterior segment appears hypokinetic. The right ventricle is of normal size. Right ventricular systolic function is normal. Mild biatrial enlargement. No hemodynamically significant valvular disease. When compared to the prior study that was done by the on-call overnight coordinate measuring machine programmer, there is no significant change in biventricular function. 09/28/22 CT coronaries: 1. Coronary calcium score of 182 . 98%-ile rank based on age, race/ethnicity, and gender. 2. CAD-RADS 2. Mild mid-LAD stenosis (25-49%) secondary to calcific plaque. Calcium blooming may overestimate degree of stenosis. Otherwise, minimal diffuse atherosclerotic changes. 3. No evidence of acute aortopathy. 4. No acute pulmonary findings Assessment: 53 y.o. woman with paroxysmal atrial fibrillation, heart failure with preserved EF, and chronic angina with non-obstructive ASCVD but significant calcifications per coronary CTA, who had an AVNRT successful ablation after EPS on 04/01/23 presents to [facility] with CP and elevated troponins. EKG shows Std on inferolateral leads unchanged from prior. CP is left sided with radiation down L arm and L neck, and improves with SL NTGL. I have low suspicion that this CP is related to the recent ablation given that patient was having similar chest pain prior to procedure as well. She has evidence of coronary calcfications although CTfrom 6 months ago shows nonobstructive CAD. Given this concerning chest pain and elevated troponinswould recommend treating this presentation as NSTEMI until proven otherwise. Would recommend Heparin gtt, atorva 80, and Asa load. Will accept patient to [facility] for further workup. Although history sounds suspicious for pericarditis, recent ESR/CRP were normal. Suspect at [facility] patient will need to complete ischemic workup. Recommendations: Heparin gtt, Asa load, High intensity statin Transfer to [facility] Above recommendations were based on my discussion with OSH; I have not personally interviewed or examined this patient. Advised to call the transfer center back with any changes in the patient condition. Vaishnavi Pratt MD It Associate documented in this encounter Plan of Treatment Upcoming Encounters Date Type Department Care Team (Late st Contact Info) Description 10/08/2023 8:30 AM EDT Tech Visit Vascular Lab at [place] [phone] Jose Cook 10/08/2023 9:30 AM EDT Office [place] [phone] MD [facility] [place] [address] 10/21/2023 10:30 AM EDT Appointment [place] [address] Mary Reyes [facility] [place] [address] 10/21/2023 11:30 AM EDT Appointment [place] [address] Mary Reyes [facility] [place] [address] 10/21/2023 12:30 PM EDT Appointment [place] [phone] Mary Reyes, FARROWING WORKER [facility] [place] [address] 10/21/2023 1:30 PM EDT Appointment [place] [address] Mary Reyes [facility] [place] [address] 10/21/2023 2:30 PM EDT Appointment [place] [address] Mary Reyes, [facility] [place] [address] 10/26/2023 4:00 PM EDT Office Visit Cardiology at [address] [phone] Jaspreet Kinsey MD [facility] [place] [address] 10/28/2023 9:00 AM EDT Office Visit [place] [address] 10/29/2023 10:00 AM EDT Clinical Support [place] [address] 10/29/2023 10:15 AM EDT Procedure visit [place] [address] 11/01/2023 5:00 PM EDT Office [place] [address] Selene Browning, PhD [facility] [place] [place] [address] 11/22/2023 4:40 PM EDT Office Visit Cardiology at [address] [address] Porsha Mcdaniels MD [facility] [place] [address] 12/13/2023 10:00 AM EDT Clinical [place] [address] [facility] [place] [address] documented as of this encounter Visit Diagnoses Not on filedocumented in this encounter Care Teams Furnace Process Supervisor Relationship Specialty Start Date End Date Polo Pearce PA [address] [place] [id number] PCP - General Internal Medicine 06/09/21 documented as of this encounter
--- OUTSIDE RECORDS SUMMARY | 2023-09-20 14:35 | XMS_ITS | Encounter Summary ---
Author Organization [facility] [place] [address] Care Team Providers Care Armored Machine Operator Name Role Phone Polo Pearce Primary Care Provider [phone] Reason for Visit * Reason Onset Date Comments Post Procedure Call 04/08/2023 Encounter Details Date Type Department Care Team (Late st Contact Info) Description 04/08/2023 Notes Only Cardiology at [address] [phone] Mary Motta, RN Post Procedure Call Social History Tobacco Use Types Packs/Day Years Used Date Smoking Tobacco: Never Smokeless Tobacco: Never Alcohol Use Standard Drinks/Week Comments Never 0 (1 standard drink = 0.6 oz pur e alcohol) [facility] Utilities Answer Date Recorded In the past 12 months has e [employer], gas, oil, or water [employer] threatened to shut off services in your [...] slept in a long-term (including now)? No 02/10/2023 Sex and Gender Information Value Date Recorded Sex Assigned at Not on file Gender Identity Not on file Sexual Orientation Not on file documented as of this encounter Progress Notes * Mary Motta RN - 04/08/2023 8:07 AM ESTSummary: Post Procedure Call: SVT Ablation EP RN Post-Procedure Note: Date of Follow Up Call: 04/08/2023 Spoke With: Patient Procedure Type (choose all that apply): Ablation Ablation Type (Choose all that apply): SVT Performing MD: La Date of Procedure: 04/01/2023 Date of Discharge: 04/01/2023 Follow Up EP Visit Scheduled?: Yes Date of EP Visit: 05/10/2023 Intra or Post Procedure Event: Did any Intra or Post Procedure Events Occur?: No Medications at Hospital Discharge: Aspirin: No P2Y12 Inhibitor: No Other Antiplatelet: No Warfarin: No DOAC: Yes Other Anticoagulant: No Beta Shu (any): No Digoxin: No Diltiazem/Verapamil: No Amiodarone: No Dofetilide: No Dronedarone: No Flecainide: No Propafenone: No Sotalol: No PPI: Yes Other Antiarrhythmic: No Assessment: Access Site Assessment (Choose all that apply): None of the above UTI symptoms (Choose all that apply): None of the above Signs and Symptoms of Infection (Choose all that apply): Other Headaches: No Complaints of: (choose all that apply): Chest Pain Free Text Note: Patient Assessment: Pt reports continued chest discomfort post op. Had it prior to procedure, but has worsened after procedure & since discharge. Occurs when laying flat (laying on L side is very uncomfortable, has a lot of pressure so she props herself up with her adjustable bed Notes that at times her heart feels like it wants to go into SVT but it doesn't. When up & moving HR in 70's, at rest HR at baseline of 50's First few days (2-3) after discharge reports she felt like she was overheating from the inside out. Notes she felt cool on the outside ut on the inside she felt hot and was pouring sweat. This has improved a bit since discharge,and at no point was she febrile Will notify Dr. Tovar & seek advisement. Follow-up Recommendations for Providers: - s/p uncomplicated EP study and SVT ablation - Resume anticoagulation with apixaban in 48 hours - No changes to medications - See below for wound care instructions - A follow up appointment with Dr. Tovar has been requested -Follow up with Dr. Tovar in 1-3 months at [facility] Catheter Insertion Area Care - You may [...] If there is rapid swelling with a black and blue color at the catheter insertion area, there [...] (or anything else out of the ordinary): Bleeding, pain, or swelling at any sheath/catheter insertion site. Sometimes this may develop even days after discharge, and there may then be a need to examine this and alter the anticoagulation medications. It is good to be up and around after the ablation procedure, but heavy lifting and straingshould be avoided for the first 3-5 days. Chest discomfort. Inflammation in the form of [...] it commonly responds well to anti-inflammatory medication. Atrial dysrhythmias (flutter, fibrillation, tachycardia). Post-procedure atrial dysrhythmias on thebasis of temporary inflammation are not uncommon, and are not necessarily indicative of an ineffective procedure... if the dysrhythmia is due to inflammtion, the dysrhythmias likely will cease as theinflammation resolves. The first 1-2 months are the most likely time during which this matter is rel evant. If the patient experiences dysrhythmias, the Cardiac Electrtophysiology Service should be contacted. Side effects of any new medications initiated at the [facility]. The patient should be aware and informed of any significant potential side effects that may be incurred as a result of being on new medication... Sudden weakness, sensory loss, altered behavior or speech. This might be a consequence of a cerbrovascular event (stroke or TIA). This requires urgent and immediate medical attention. Fever or sweats, significant malaise. Possibly a [...] an urgent medical assessment should be obtained. Difficulty swallowing, or pain with swallowing. While remote, there nonetheless is a ablation procedural risk of injury to the esophagus; if these symptoms emerge, immediate medical evaluation is urged (with no oral intake pending medical evaluation). This is not an exhaustive list. If the patient experiences anything out of the ordinary post-procedure, he/she is encouraged to contact his/her physician or the Cardiac Electrophysiology Service ([phone]). documented in this encounter Plan of Treatment Upcoming Encounters Date Type Department Care Team (Late st Contact Info) Description 10/08/2023 8:30 AM EDT Tech [place] [address] Jose Cook 10/08/2023 9:30 AM EDT Office [place] [phone] MD [facility] [place] [address] 10/21/2023 10:30 AM EDT Appointment [place] [address] Mary Reyes APRN [facility] [place] [address] 10/21/2023 11:30 AM EDT Appointment [place] [address] Mary Reyes APRN [facility] [place] [address] 10/21/2023 12:30 PM EDT Appointment [place] [address] Mary Reyes [facility] [place] [address] 10/21/2023 1:30 PM EDT Appointment [place] [address] Mary Reyes, [facility] [place] [address] 10/21/2023 2:30 PM EDT Appointment [place] [address] Mary Reyes, [facility] [place] [address] 10/26/2023 4:00 PM EDT Office Visit Cardiology at [address] [phone] Jaspreet Kinsey MD [facility] [place] [address] 10/28/2023 9:00 AM EDT Office Visit [place] [address] 10/29/2023 10:00 AM EDT Clinical Support [place] [address] 10/29/2023 10:15 AM EDT Procedure visit [place] [address] 11/01/2023 5:00 PM EDT Office Visit Gastroenterology at [place] [phone] Selene Browning, PhD [facility] [place] [address] 11/22/2023 4:40 PM EDT Office Visit Cardiology at [address] Porsha Mcdaniels MD [facility] [place] [address] 12/13/2023 10:00 AM EDT Clinical Support Gastroenterology at [place] [phone] Lucero Romero, [place] [facility] [place] [address] documented as of this encounter Visit Diagnoses Not on filedocumented in this encounter Care Teams Armored Machine Operator Relationship Specialty Start Date End Date Polo Pearce PA Sb [address] [place] [address] PCP - General Internal Medicine 06/09/21 documented as of this encounter
--- OUTSIDE RECORDS SUMMARY | 2023-09-20 14:35 | XMS_ITS | Encounter Summary ---
Author Organization [facility] [address] Care Team Providers Care Chemical Analyst Name Role Phone Polo Pearce Primary Care Provider [phone] Encounter Details Date Type Department Care Team (Late st Contact Info) Description 04/02/2023 Telephone Cardiology at [address] [phone] Ambreen Cartagena Social History Tobacco Use Types Packs/Day Years Used Date Smoking Tobacco: Never Smokeless Tobacco: Never Alcohol Use Standard Drinks/Week Comments Never 0 (1 standard drink = 0.6 oz pur e alcohol) [facility] Utilities Answer Date Recorded In the [...] place to sleep or slept in a senior care (including now)? No 02/10/2023 Sex and Gender Information Value Date Recorded Sex Assigned at Not on file Gender Identity Not on file Sexual Orientation Not on file documented as of this encounter Miscellaneous Notes * Telephone Encounter - Ambreen Cartagena - 04/02/2023 9:[address] Tovar would like to see this patient in follow up at [facility] in 2-3 months. She had SVT ablation 04/01/23. Message sent Mary at [facility] to get pt scheduled there for f/up. Ambreen Cartagena Sr. Clinical Procedure Sims/Assistant Operations Manager documented in this encounter Plan of Treatment Upcoming Encounters Date Type Department Care Team (Late st Contact Info) Description 10/08/2023 8:30 AM EDT Tech Visit [place] [address] Jose Cook 10/08/2023 9:30 AM EDT Office Visit [place] [phone] MD [facility] [place] [address] 10/21/2023 10:30 AM EDT Appointment [place] [phone] Mary Reyes APRN [facility] [place] [address] 10/21/2023 11:30 AM EDT Appointment [place] [address] Mary Reyes, [facility] [place] [address] 10/21/2023 12:30 PM EDT Appointment [place] [address] Mary Reyes, [facility] [place] [address] 10/21/2023 1:30 PM EDT Appointment [place] [address] Mary Reyes, [facility] [place] [address] 10/21/2023 2:30 PM EDT Appointment [place] [address] Mary Reyes, [facility] [place] [address] 10/26/2023 4:00 PM EDT Office Visit Cardiology at [address] [phone] Jaspreet Kinsey MD [facility] [place] [address] 10/28/2023 9:00 AM EDT Office [place] [address] 10/29/2023 10:00 AM EDT Clinical Support [place] [address] 10/29/2023 10:15 AM EDT Procedure [place] [address] 11/01/2023 5:00 PM EDT Office [place] [address] Selene Browning, PhD [facility] [place] [address] 11/22/2023 4:40 PM EDT Office [place] [address] Porsha Mcdaniels MD [facility] [place] [address] 12/13/2023 10:00 AM EDT Clinical Support Gastroenterology at [place] [phone] Lucero Romero, [place] [facility] [place] [address] documented as of this encounter Visit Diagnoses Not on filedocumented in this encounter Care Teams Chemical Analyst Relationship Specialty Start Date End Date Polo Pearce PA S[address] [place] [address] PCP - General Internal Medicine 06/09/21 documented as of this encounter
--- OUTSIDE RECORDS SUMMARY | 2023-09-20 14:35 | XMS_ITS | Encounter Summary ---
[place] [address] Care Team Providers Care Crankshaft Grinder Name Role Phone Polo Pearce Primary Care Provider [phone] Reason for Referral * Diagnostic Test (Routine) - Closed Specialty Diagnoses / Procedures Referred By Jayant harris Referred To Contact Radiology Diagnoses Chest pain, unspecified type Procedures NM PET CT Cardiac Sarcoid Maegan Mike APRN [facility] [address] [place] [address] Referral ID Status Reason Start Date Expiration Date V isits Requested Visits Authorized [id number] Closed Specialty Service Requested 04/22/2023 10/20/2024 4 4 Reason for Visit * Auth/Cert (Routine) Specialty Diagnoses / Procedures Referred By Jayant harris Referred To Contact Diagnoses NSTEMI (non-ST elevated myocardial infarction) NSTEMI Procedures ER Terrence Pantoja MD [facility] [place] [address] [facility] Referral ID Status Reason Start Date Expiration Date Visits Re quested Visits Authorized [id number] 1 1 Encounter Details Date Type Department Care Team (Latest Contact Info) Description 04/16/2023 11:15 PM EST - 04/22/2023 5:15 PM EST Hospital Encounter Heart and Vascular Unit Level 4 Wing B at [facility] [place] [address] Jose Gallegos MD [facility] [place] [address] Ailyn Knight MD [facility] [place] [address] Terrence Maloney MD [facility] [place] [address] Eufemia Copeland MD [facility] [place] [address] Chest pain, unspecified type; Non-ST elevation myocardial infarction (NSTEMI); Swelling of hand, unspecified laterality; Arm edema Discharge Disposition: Home Social History Tobacco Use Types Packs/Day Years Used Date Smoking Tobacco: Never Smokeless Tobacco: Never Alcohol Use Standard Drinks/Week Comments Never 0 (1 standard drink = 0.6 oz pur e alcohol) [facility] Utilities Answer Date Recorded In the past 12 months has [facility] [employer], gas, oil, or water [employer] threatened to shut off services in your [...] Sign Reading Time Taken Comments Blood Pressure 115/67 04/22/2023 12:27 PM EST Pulse 50 04/22/2023 12:27 PM EST Temperature 36.6 ??C (97.8 ??F) 04/22/2023 9:27 AM ES T Respiratory Rate 16 04/22/2023 12:27 PM EST Oxygen Saturation 98% 04/22/2023 12:27 PM EST Inhaled Oxygen Concentration - - Weight 98.5 kg (217 lb 1.6 oz) 04/22/2023 5:34 A M EST Height 160 cm (5' 3) 04/17/2023 12:09 AM EST Body Mass Index 38.46 04/19/2023 2:10 PM EST documented in this encounter Discharge Summaries * Eufemia Copeland MD - 04/22/2023 7:48 AM EST Discharge Summary Patient Name: Loida Madrigal Patient Age: 53 y.o. Language: Cymro Admit date: 04/16/2023 Discharge date and time: [...] lung disease secondary to obesity transferred from [facility] for further evaluation of exertional chest pressure and breathlessness. Abnormal OSH troponin 500 and repeat HS Trop at [facility] peak 27 with flat trend and elevated [...] discharge Inpatient Provider Contact Information: Cardiovascular Medicine [phone] Discharge Diagnoses (Hospital Problems) and Secondary Diagnoses [...] motion has increased. CTA PE protocol at [facility]- no PE but showed small pericardial effusion and some GG opacities. History of Presentation: Loida Madrigal is a 53 y.o. with hx of paroxysmal A-fib (diagnosed on 10/20/2022), pulmonary emboli on Eliquis, HFpEF (EF of 59%), supraventricular tachycardia (AVNRT since 06/2021) s/p EPS and SVTablation on 04/01/[address] Tovar on [facility], restrictive lung disease secondary to obesity presents from [facility] with complains of chest discomfort that started overnight. The patient has been experiencing ongoing chest pain, prompting admission on 02/11/23 primarily due to concerns about a NSTEMI indicated by elevated troponin levels and EKG changes noted at OSH. However, the observed EKG changes remained largely consistent with previous recordings. Troponin levels at [facility] showed a plateau at 23 > 27. [...] again 10/15, improving with sublingua Nitro. At [facility] Vitals: HR 48, BP 115/42, O2 96% [...] #Acute on chronic HFpEF Patient presented to [facility] on 04/16 with chest pain responsive to SL NTG. Troponin ~500x2. [facility]red[facility] for further evaluation. Troponin at [facility], 24>23 w/ repeat peak 27->26. She reported [...] from antecubital fossa distally to phalanges on 04/19 AM. Arterial duplex without occlusion. RUE DVT [...] PA 38/15 (24) PCWP 11, CO/CI 3.14/1.6. [facility] 08/30/2019-normal coronary arteries. Cardiac MRI 04/21/23 Normal [...] days. Refills: 0 fluticasone propionate 50 mcg/actuation [place], Suspension Commonly known as: Flonase 1 spray [...] 9:40 AM Jaspreet Kinsey MD Cardiology at [place] Arrive at: [facility] [address] [phone] 09/21/2023 3:00 PM Jaspreet Kinsey MD Cardiology at [place] Arrive at: [facility] [address] [phone] Discharge References/Attachments None Greater than 30 minutes was spent on this discharge including documentation, [id number] time withthe patient, patient education, order make up clerk, coordination with pharmacy and other patient [...] away. Stay on the phone. The emergency warehouse operator will tell you what to do. [...] of 8AM-5PM please call the Cardiology Clinic [phone] to speak with a nurse. All other hours please call the Hospital Copying Machine Mechanic [phone] and ask to speak to the embossing calender operator on-call. Return to work: One week Follow up Appointments: Doctor Where Phone # Date Time PCP JOCY Franco [address] [place] [address] 04/28/2023 7:30 AM [address] Kinsey [facility] [address] 05/10/2023 9:40 AM * Attachments The following attachments cannot be sent through Care Everywhere. * Coronary Angiogram: Post-op (Cymro) documented in this encounter Medications at Time [...] nightly as needed. empagliflozin (Jardiance) 10 mg TabletIndications:Blender Operator neal heart failure with preserved ejection fraction Take 1 tablet by mouth daily. 90 tablet 1 06/11/2021 rOPINIRole (Requip) 1 mg Tablet Take 2 mg by mouth 2 times daily. 07/16/2020 loratadine (Claritin) 10 mg Tablet Take 10 mg by mouth daily as needed. fluticasone propionate (FLONASE) 50 mcg/actuation [place], Suspension 1 spray by Each Nare route [...] of this encounter Progress Notes * Charity Jackson, RN - 04/22/2023 5:44 PM EST Patient [...] reviewed with pt, pt wheeled to d/c [facility]. I agree with the information in this [...] note were not included. CARDIOLOGY APP1 - [facility] DAILY PROGRESS NOTE Page [phone] to reach a provider 28/09 Admit Date: [...] normal. Labs: Recent Labs 04/21/23 0340 04/20/23 03104/19/23 0240 04/18/23 02104/17/23 0333 WBC 7.1 6.6 7.5 6.7 7.4 HGB 14.4 14.2 14.8 15.2 14.8 HCT 43.0 42.7 45.5 44.9 44.3 PLATELET 221 231 240 233 233 MCV 93.7 93.0 93.6 91.1 92.5 Recent Labs 04/21/23 0340 04/20/23 03104/19/23 0240 04/18/23 0210 04/17/23 0333 NA 138 [...] 12 CRP <=4.9 mg/L <3.0 <3.0 OSH [facility] troponin ~500. Telemetry: I have personally reviewed [...] disease secondary to obesity who presented to [facility] on 04/16 with chest pain responsive to SL NTG. Troponin ~500x2. Transferred to [facility] for further evaluation. Troponin at [facility], 24>23. Reports exertional chest pressure and dyspnea [...] LHC on 04/18 which showed non-obstructive ASCVD. Initiated [...] Score: 24 PT: OT: PCP JOCY Franco [phone] Discussed with MD Kurt Ray PA-C APP1 pager [phone] 04/22/2023 CV HOSPITALIST ADDENDUM Date of Service: [...] 04/21/2023 6:10 PM EST CARDIOLOGY APP1 - [facility] DAILY PROGRESS NOTE Page [phone] to reach a provider 28/09 Admit Date: [...] Psychiatric: Behavior: Behavior normal. Labs: Recent Labs 04/21/2333904/20/2331004/19/23 0240 04/18/23 0210 04/17/23 0333 WBC 7.1 6.6 7.5 6.7 7.4 HGB 14.4 14.2 14.8 15.2 14.8 HCT 43.0 42.7 45.5 44.9 44.3 PLATELET 221 231 240 233 233 MCV 93.7 93.0 93.6 91.1 92.5 Recent Labs 04/21/2333904/20/2331004/19/2323904/18/2320904/17/23 0333 NA 138 139 139 143 141 [...] 12 CRP <=4.9 mg/L <3.0 <3.0 OSH [facility] troponin ~500. Telemetry: I have personally reviewed [...] disease secondary to obesity who presented to [facility] on 04/16 with chest pain responsive to SL NTG. Troponin ~500x2. Transferred to [facility] for further evaluation. Troponin at [facility], 24>23. Reports exertional chest pressure and dyspnea [...] and no pericardial effusion. She underw ent [facility] on 04/18 which showed non-obstructive ASCVD. [...] TTE with pLVEF, progressing anterior WMAs S/p [facility] 04/18 with non-obstructive ASCVD IV heparin and [...] occur Diet: Daily Healthy Menu Choices/Cardiac diet ([facility]-Diet) 2 GM NA DVT Prophylaxis: DOAC Code status: Attempt Cardiopulmonary Resuscitation - Inpatient Disposition: Discharge Location: AM-[facility] Basic Mobility Raw Score: 22 PT: OT: PCP JOCY Franco [phone] * Eufemia Copeland MD - 04/20/2023 4:34 PM EST CARDIOLOGY APP1 - [facility] DAILY PROGRESS NOTE Page [phone] to reach a provider 28/09 Admit Date: [...] Psychiatric: Behavior: Behavior normal. Labs: Recent Labs 04/20/23 03104/19/23 02404/18/2320904/17/23332 WBC 6.6 7.5 6.7 7.4 HGB 14.2 14.8 15.2 14.8 HCT 42.7 45.5 44.9 44.3 PLATELET 231 240 233 233 MCV 93.0 93.6 91.1 92.5 Recent Labs 04/20/23 03104/19/23 0240 04/18/2320904/17/23 033 NA 139 139 143 141 CL 106 [...] Labs 04/20/23 1347 04/20/23 1048 04/17/23 0643 04/17/23 033 TROPONINTHS 27* 24* 23* 24* PROBNP -- [...] 12 CRP <=4.9 mg/L <3.0 <3.0 OSH [facility] troponin ~500. Telemetry: I have personally reviewed [...] disease secondary to obesity who presented to [facility] on 04/16 with chest pain responsive to SL NTG. Troponin ~500x2. Transferred to [facility] for further evaluation. Troponin at [facility], 24>23. Reports exertional chest pressure and dyspnea [...] and no pericardial effusion. She underw ent [facility] on 04/18 which showed non-obstructive ASCVD. [...] occur Diet: Daily Healthy Menu Choices/Cardiac diet ([facility]-Diet) 2 GM NA; 2000 mL FLUID DVT Prophylaxis: DOAC Code status: Attempt Cardiopulmonary Resuscitation - Inpatient Disposition: Discharge Location: AM-PAC Basic Mobility Raw Score: 24 PT: OT: PCP JOCY Franco [phone] * Carrol La PA - 04/19/2023 12:32 PM EST CARDIOLOGY APP1 - [facility] DAILY PROGRESS NOTE Page [phone] to reach a provider 28/09 Admit Date: [...] Psychiatric: Behavior: Behavior normal. Labs: Recent Labs 04/19/2323904/18/2320904/17/23332 WBC 7.5 6.7 7.4 HGB 14.8 15.2 14.8 HCT 45.5 44.9 44.3 PLATELET 240 233 233 MCV 93.6 91.1 92.5 Recent Labs 04/19/23 02404/18/2320904/17/23332 NA 139 143 141 CL 105 107 106 CO2 * 24 22 K 4.0 3.6 4.0 MAGNESIUM 0.97 1.02 0.99 PHOS -- -- 4.1 CALCIUM 9.5 9.2 9.4 BUN 22* 23* 19* CREATININE 1.11 1.18 1.19 Coags Recent Labs 04/17/23 033 INR 1.2 PT 13.3* PTT 40* Cardiac Markers Recent Labs 04/17/23 0643 04/17/23 033 TROPONINTHS * 24* PROBNP -- 867* Endocrine [...] 12 CRP <=4.9 mg/L <3.0 <3.0 OSH [facility] troponin ~500. EKG: Sinus bradycardia, 47 bpm, PAC, possible left atrial enlargement, possible lateral infarct, QTc 511. Telemetry: I have personally reviewed and interpreted the telemetry from the last 24 hours. Resultsshow sinus bradycardia with HR 50s, PVCs, heart rate climbs to 70s with activity.. Imaging: [facility] 04/18/23 Conclusions: * Nonobstructive coronary artery [...] motion has increased. CTA PE protocol at [facility]- no PE but showed small pericardial effusion [...] acute aortopathy. 4. No acute pulmonary findings. [facility] 06/09/2021-RA 4, PA 38/15 (24) PCWP 11, CO/CI 3.14/1.6. [facility] 08/30/2019-normal coronary arteries. Assessment & Plan: [...] disease secondary to obesity who presented to [facility] on 04/16 with chest pain responsive to SL NTG. Troponin ~500x2. Transferred to [facility] for further evaluation. Troponin at [facility], 24>23. Reports exertional chest pressure and dyspnea [...] TTE with pLVEF, progressing anterior WMAs S/p [facility] 04/18 with non-obstructive ASCVD IV heparin and [...] continues. Diet: Daily Healthy Menu Choices/Cardiac diet ([facility]-Diet) 2 GM NA; 2000 mL FLUID DVT Prophylaxis: DOAC Code status: Attempt Cardiopulmonary Resuscitation - Inpatient Disposition: Discharge Location: AM-PAC Basic Mobility Raw Score: 24 PT: OT: PCP JOCY Franco [phone] Discussed with MD Carrol Aly PA-C APP1 Pager: [phone] 04/19/2023 * Nikkie Lew RCP - 04/18/2023 10:10 [...] nocturnal use as tolerated NIKKIE LEW RCP * Kurt Silveira PA - 04/18/2023 8:27 AM EST Images from the original note were not included. CARDIOLOGY APP1 - [facility] DAILY PROGRESS NOTE Page [phone] to reach a provider 28/09 Admit Date: [...] breathlessness. Awaiting cardiac catheterization potentially today if Investment Director availability allows.She remains on ACS therapies. Medications: [...] Psychiatric: Behavior: Behavior normal. Labs: Recent Labs 04/18/2320904/17/23 0333 WBC 6.7 7.4 HGB 15.2 14.8 HCT 44.9 44.3 PLATELET 233 233 MCV 91.1 92.5 Recent Labs 04/18/2320904/17/23 0333 NA 143 141 CL 107 106 CO2 24 22 K 3.6 4.0 MAGNESIUM 1.02 0.99 PHOS -- 4.1 CALCIUM 9.2 9.4 BUN 23* 19* CREATININE 1.18 1.19 Coags Recent Labs 04/17/23 0333 INR 1.2 PT 13.3* PTT 40* Cardiac Markers Recent Labs 04/17/23 0643 04/17/23 0333 TROPONINTHS 23* 24* PROBNP -- 867* Endocrine [...] mg/L <3.0 <3.0 OSH [facility] troponin ~500. EKG: Sinus bradycardia, 47 bpm, [...] motion has increased. CTA PE protocol at [facility]- no PE but showed small pericardial effusion [...] lung disease secondary to obesity presents from [facility] with complains of exertional chest pressure [...] or NTG drip if ongoing chest pain -[facility] 04/18 depending on Investment Director availability. #Hx of pAfib #Hx of AVNRT [...] Resuscitation - Inpatient Disposition: Discharge Location: AM-[facility] Basic Mobility Raw Score: 24 PT: OT: PCP JOCY Franco [phone] Discussed with MD Kurt Sheppard PA-C APP1 pager [phone] 04/18/2023 IE * Kurt Silveira PA - 04/17/2023 7:15 AM EST Images from the original note were not included. CARDIOLOGY APP1 - [facility] DAILY PROGRESS NOTE Page [phone] to reach a provider 28/09 Admit Date: 04/16/2023 Encounter Date April 17, 2023 Anticipated Discharge Date: 04/20/2023 Hospital Day: 1 Active Hospital Problems Diagnosis NSTEMI (non-ST elevated myocardial infarction) Resolved Hospital Problems No resolved problems to display. 24 Hour Events/Subjective: HITESH Chest discomfort improved following sublingual nitroglycerin. She [...] Psychiatric: Behavior: Behavior normal. Labs: Recent Labs 04/17/23332 WBC 7.4 HGB 14.8 HCT 44.3 PLATELET 233 MCV 92.5 Recent Labs 04/17/23332 NA 141 CL 106 CO2 22 K 4.0 MAGNESIUM 0.99 PHOS 4.1 CALCIUM 9.4 BUN 19* CREATININE 1.19 Coags Recent Labs 04/17/23332 INR 1.2 PT 13.3* PTT 40* Cardiac Markers Recent Labs 04/17/23 0643 04/17/23332 TROPONINTHS 23* 24* PROBNP -- 867* Endocrine Recent Labs 04/17/2333202/08/23 2208 09/27/22 0307 09/26/22 1750 TSH 5.93* 4.00 -- 3.02 HA1C -- -- 5.6 -- No results for input(s): CHLPL, TRIG, HDL, LDLCHOL, CHOLHDL in the last 168 hours. Recent Labs 04/17/23332 GLUCOSE 89 Latest Reference Range & Units 02/09/23 03:55 04/17/23 03:33 Sed Rate 2 - 39 mm/hr 15 12 CRP <=4.9 mg/L <3.0 <3.0 OSH [facility] troponin ~500. EKG: Sinus bradycardia, 47 bpm, [...] motion has increased. CTA PE protocol at [facility]- no PE but showed small pericardial effusion [...] acute aortopathy. 4. No acute pulmonary findings. [facility] 06/09/2021-RA 4, PA 38/15 (24) PCWP 11, CO/CI 3.14/1.6. [facility] 08/30/2019-normal coronary arteries. Assessment & Plan: [...] lung disease secondary to obesity presents from [facility] with complains of exertional chest pressure [...] or NTG drip if ongoing chest pain -[facility] 04/18 or 04/19 depending on Investment Director availability. #Hx of pAfib #Hx of AVNRT sp EPS and Ablation - hold eliquis. Last taken on 04/16/23 am. - Continue IV heparin. # Hx of PE- continue with IV heparin Diet: No diet orders on file DVT Prophylaxis: DOAC Code status: Attempt Cardiopulmonary Resuscitation - Inpatient Disposition: Discharge Location: [facility] Basic Mobility Raw Score: 14 PT: OT: PCP JOYC Franco [phone] Discussed with MD Kurt Sheppard PA-C APP1 pager [phone] 04/17/2023 documented in this encounter H&P Notes [...] Tovar on [facility], restrictive lung disease secondary to obesity presents from [facility] with complains of chest discomfort that started overnight. The patient has been experiencing ongoing chest pain, prompting admission on 02/11/23 primarily due to concerns about a NSTEMI indicated by elevated troponin levels and EKG changes noted at OSH. However, the observed EKG changes remained largely consistent with previous recordings. Troponin levels at [facility] showed a plateau at 23 > 27. [...] again 10/15, improving with sublingua Nitro. 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 fluticasone propionate (FLONASE) 50 mcg/actuation [place], Suspension 1 spray by Each Nare route [...] Tovar on [facility], restrictive lung disease secondary to obesity presents from [facility] with complains of chest discomfort that [...] if hypotensive / cardiogenic shock / inferior [place] / sildenafil within past 24 hours) - [...] Concerns:1.5 story home w/ full basement; 4 ADAN; no home accessibility concerns. Current Functional Ability: Independent DME used at home: respiratory supplies, other (see comments), grab bar - tub/shower (CP[employer]) DME Needed at Discharge: N/A Patient is insured through: Primary Insurance: [employer] [place] [employer] [place] / Plan[place] / Product Type: *No Product type* / Secondary Insurance: N/A Prescription Coverage: Yes This plan was formulated with input from patient and team. All are in agreement with plan. * Consult Note - Maegan Mkie APRN - 04/22/2023 10:38 AM EST Images from the original note were not included. [facility] [place] [phone] INPATIENT CARDIOLOGY CONSULT PROGRESS NOTE Interval events: [...] insights. Discussed with MD Maegan De Leon, ROM Pager [phone] 04/22/2023 Associated attestation - Jaspreet Kinsey MD [...] Tatum MSW - 04/20/2023 2:22 PM EST DIESEL TECHNICIAN MECHANIC received a consult to support patient with financial concerns. DIESEL TECHNICIAN MECHANIC met with patient and introduced self. Patient stated due to hospitalization, she has been out of work and feeling stress around not being able to pay bills. I have a car payment and other bills and it's like I have to choose which one to pay and which one not to pay. DIESEL TECHNICIAN MECHANIC validated patient's stress around financial concerns. DIESEL TECHNICIAN MECHANIC asked patient if she has applied for [employer] or any other state benefits. Patient stated that she has, but is over the household income criteria to qualify for benefits. Patient shared that she owns her home outright and mainly concerned about making her car payment and transportation home. MSWstated that care management will help arrange for a ride, if needed. DIESEL TECHNICIAN MECHANIC provided patient with community resources such as the [employer], the [facility] Community Action phone number, and the [facility] [place] on Aging contact info. DIESEL TECHNICIAN MECHANIC available to support patient should anything else [...] Admitted From: Transfer from another hospital Location: [facility] Reason for Hospitalization: chest pain and cough Covid Vaccination Status: 1st, 2nd & booster Last COVID test: Lab Results Component Value Date [id number] Not Detected 06/13/2021 Past medical History: Past [...] Concerns:1.5 story home w/ full basement; 4 ADAN; no home accessibility concerns. In the last [...] In the past 12 months has the [employer], gas, oil, or water [employer] threatened to shut off services in your home?: Yes ([employer] is currently threatening to shut off electricity [...] (see comments), grab bar - tub/shower (CPAP [employer]) Home Address confirmed as: [address] [facility] [address] Social & Family Supports: All names listed below confirmed with patient as current and correct Extended Emergency Contact Information Primary Emergency Contact: Boby Madrigal Greats Relation: Spouse Secondary Emergency Contact: TALI SHAH [...] Specific Information: N/A Health/Prescription Coverage: Primary Insurance: [employer] [facility] [place] Payor: [employer] [facility] [place] / Plan: [place] EX[place] / Product Type: *No Product type* / Secondary Insurance: N/A ; Prescription Coverage: Yes Preferred Pharmacy: [id number] - [place], [place] - [address] [facility] [id number] [facility] - [place], [place] - [address] [facility] [address] [facility] [address] [facility] [address] Status: Patient is a : No Primary Care Provider confirmed: JOCY Franco [phone] Patient/Caregiver Goals of Treatment: home w / family when MR Potential Needs for Transition of Care: other (see comments) (DIESEL TECHNICIAN MECHANIC support; pt's spouse was denied twice for [...] Concerns to be Addressed: financial/insurance, discharge planning; DIESEL TECHNICIAN MECHANIC consult placed to discuss available resources Assessment: Patient is admitted to APP1 service for NSTEMI Plan: pending clinical course, but likely home w/o services when MR A member of the Care Management team will continue to monitor progress, follow for continuity of care and assist with transition of care planning. * Consult Note - Otis Rader MD - 04/19/2023 10:00 AM EST Images from the original note were not included. [facility] [address] [place], [place] [address] INPATIENT CARDIOLOGY CONSULT NOTE Reason for Consult: [...] ACS with DAPT and heparin prior to [facility] 04/18, which was negative for any [...] Went to cathlab, came back ~1115am, s/p [facility] with no coronary artery disease seen. [...] for further details. JOCY Marie 04/17/2023 Pager [phone] * Plan of Care - Sudhakar Smith, RN - 04/17/2023 5:48 AM EST Pt [...] AM EDT Tech [place] [address] Jose Cook 10/08/2023 9:30 AM EDT Office [place] [address] [facility] DR VASCULAR SURGERY [place], [place] [id number] 10/21/2023 10:30 AM EDT Appointment [place] [address] Mary Reyes, ROM [facility] [place] [address] 10/21/2023 11:30 AM EDT App[place]ment [place] [address] Mary Reyes, [facility] [place] [address] 10/21/2023 12:30 PM EDT App[place] [address] Mary Reyes, [facility] [place] [address] 10/21/2023 1:30 PM EDT App[place] [address] Mary Reyes, [facility] [place] [address] 10/21/2023 2:30 PM EDT Appoint[place] [address] Mary Reyes, [facility] [place] [address] 10/26/2023 4:00 PM EDT Office Visit Cardiology at [address] [place] [phone] Jaspreet Kinsey MD [facility] [place] [address] 10/28/2023 9:00 AM EDT Office [place] [address] 10/29/2023 10:00 AM EDT Clinical [place] [address] 10/29/2023 10:15 AM EDT Procedure [place] [address] 11/01/2023 5:00 PM EDT Office [place] [phone] Selene Browning, PhD [facility] [place] [address] 11/22/2023 4:40 PM EDT Office Visit Cardiology at [address] [phone] Porsha Mcdaniels MD [facility] [place] [address] 12/13/2023 10:00 AM EDT Clinical [place] [address] [facility] [place] [address] documented as of this encounter Procedures Procedure [...] who have questions please contact the health intensive care medicine specialist that requested 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 ? 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 Following IV administration of 26.5 mCi technetium 99m sestamibi, SPECT-CT of the heart was obtained. Following IV injection of 8.8 mCi 41-emedmy-8-deoxyglucose (FDG) and a standard uptake of approximately [...] obtained. Following IV injection of 8.8 mCi 97-lezrbi-8-deoxyglucose (FDG) and astandard uptake of approximately 60 [...] patients who have questions please contactthe health intensive care medicine specialist that requested 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 Electronically signed by: Humberto Qureshi MD, [facility]([phone]), at 05/06/2023 11:09 AM Maegan Mike MASTER COSMETOLOGIST IMG PET ORDERABLE S * MRI Cardiac [...] who have questions please contact the health intensive care medicine specialist that requested 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 ? Electronically signed by: Karon Nur MD, [facility] ([phone]), at 04/21/2023 5:33 PM Narrative 04/21/2023 5:33 PM EST EXAMINATION: MRI [...] patients who have questions please contactthe health intensive care medicine specialist that requested 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 Terrence Maloney MD IMG MRI ORDERABLES * Hemogram (04/21/2023 3:40 AM EST) WBC 7.1 4.0 - 9.5 x10(3)/[facility] RBC 4.59 4.00 - 5.21 x10(6)/[facility] Hemoglobin 14.4 11.7 - 15.5 g/dL [facility] Hematocrit 43.0 35.7 - 45.8 % [facility] MCV 93.7 82.6 - 94.4 [facility] MCH 31.4 27.1 - 32.0 pg [facility] MCHC 33.5 31.7 - 35.0 g/dL [facility] Platelets 221 145 - 357 x10(3)/[facility] RDWSD 43.5 37.0 - 46.0 [facility] RDWCV 12.6 11.5 - 14.1 % [facility] MPV 11.1 7.6 - 12.9 [facility] nRBC % Auto 0.0 % [facility] nRBC Abs Auto 0.000 0.000 - 0.000 x10(3)/[facility] Blood 04/21/2023 3:40 AM EST 04/21/2023 3:58 AM EST Narrative Resulting Agency Comment Spec In Lab Ailyn Knight MD HEMATOLOGY ORDERABLE S [facility] [place] [address] * (ABNORMAL) BMP w/fasting Glucose (04/21/2023 3:40 AM EST) [facility] Glucose Fasting 107(H) 65 - 99 mg/dL [facility] Comment: ?Fasting* Glucose Interpretive Criteria [...] of Diabetes Mellitus, Position Statement from the [place] [employer]. ??Diabetes Care, Volume 33, Supplement 1, Mar 2009 BUN 20(H) 8 - 18 mg/dL [facility] Creatinine 1.14 0.70 - 1.20 mg/dL [facility] Sodium 138 135 - 145 mmol/L [facility] Potassium 3.8 3.5 - 5.0 mmol/L [facility] Comment: Please note: ??Patients with WBC >100,000 may have falsely elevated Potassium levels. ??For accurate Potassium quantification in these patients send serum separator tube (gold top) for subsequent determinations. ??Contact the Clinical Chemistry Laboratory if there are any questions. Chloride 106 98 - 107 mmol/L [facility] CO2 22 22 - 31 mmol/L [facility] Anion Gap 10 5 - 15 mmol/L [facility] Calcium 9.2 8.5 - 10.5 mg/dL [facility] Estimated GFR 57(L) >=60 mL/min/1. 73 m?? [facility] [...] Knight MD CHEMISTRY ORDERABLES Performing Organization Address City/[facility] Co de Phone Number [facility] [place] [address] * Magnesium (04/21/2023 3:40 AM EST) Magnesium 0.90 0.69 - 1.07 mmol/L [facility] Blood 04/21/2023 3:40 AM EST 04/21/2023 3:58 AM EST Narrative Resulting Agency Comment Spec In Lab Ailyn Knight MD CHEMISTRY ORDERABLES Performing Organization Address City/[facility] Co de Phone Number [facility] [place] [address] * (ABNORMAL) Troponin (04/20/2023 4:44 PM EST) Troponin-T HS 26(H) <=14 ng/L [facility] Comment: This patient's troponin T [...] troponin value can be found in the [facility] Test Catalog Troponin - [facility] Test Catalog Reference: [place] Definition of Myocardial Infarction. Journal of the [place] [employer] 2018;72:6369-7460 Blood 04/20/2023 4:44 PM EST 04/20/2023 4:53 PM EST Narrative Resulting Agency Comment Spec In Lab Eufemia Copeland MD CHEMISTRY ORDERABL ES [facility] [place] [id number] * Duplex for DVT, Arm, Unilat (04/20/2023 4:22 PM EST) VB Text Report Department: Vascular Surgery Lab Patient: [id number] (LOIDA MADRIGAL) CPT: 82812 Referring Physician: TERRENCE MALONEY ?? Phone: Indications: [...] PM EST) Troponin-T HS 27(H) <=14 ng/L [facility] Comment: This patient's troponin T [...] troponin value can be found in the [facility] Test Catalog Troponin - [facility] Test Catalog Reference: [place] Definition of Myocardial Infarction. Journal of the [place] [employer] 2018;72:2191-2500 Blood 04/20/2023 1:47 PM EST 04/20/2023 2:18 PM EST Narrative Resulting Agency Comment Spec In Lab Eufemia Copeland MD CHEMISTRY ORDERABL ES [facility] [place] [address] * (ABNORMAL) Troponin (04/20/2023 10:48 AM EST) Troponin-T HS 24(H) <=14 ng/L [facility] Comment: This patient's troponin T [...] troponin value can be found in the [facility] Test Catalog Troponin - [facility] Test Catalog Reference: [place] Definition of Myocardial Infarction. Journal of the [place] [employer] 2018;72:3563-8914 Blood 04/20/2023 10:4 8 AM EST 04/20/2023 11:03 AM EST Narrative Resulting Agency Comment Spec In Lab Eufemia Copeland MD CHEMISTRY ORDERABL ES [facility] [place] [address] * EKG 12 Lead (04/20/2023 10:23 AM EST) Ventricular rate 60 BPM MUSE SYSTEM Atrial Rate 60 BPM MUSE SYSTEM P-R Interval 170 ms MUSE SYSTEM QRS Duration 86 ms MUSE SYSTEM Q-T Interval 470 ms MUSE SYSTEM QTC Calculated (Bezet) 470 ms MUSE SYSTEM Calculated P [place] 39 degrees MUSE SYSTEM Calculated R [place] 63 degrees MUSE SYSTEM Calculated T [place] -16 degrees MUSE SYSTEM INTERPRETATION Normal sinus [...] leads Confirmed by MD Eli, Manish [place] ([id number]) on 04/22/2023 12:10:07 PM MUSE SYSTEM 04/20/2023 10:2 3 AM EST 04/22/2023 12:10 PM EST Terrence Maloney MD ECG ORDERABLES MUSE SYSTEM * Hemogram (04/20/2023 3:11 AM EST) WBC 6.6 4.0 - 9.5 x10(3)/[facility] RBC 4.59 4.00 - 5.21 x10(6)/[facility] Hemoglobin 14.2 11.7 - 15.5 g/dL [facility] Hematocrit 42.7 35.7 - 45.8 % [facility] MCV 93.0 82.6 - 94.4 fL [facility] MCH 30.9 27.1 - 32.0 pg [facility] MCHC 33.3 31.7 - 35.0 g/dL [facility] Platelets 231 145 - 357 x10(3)/[facility] RDWSD 43.6 37.0 - 46.0 fL [facility] RDWCV 12.6 11.5 - 14.1 % [facility] MPV 11.0 7.6 - 12.9 fL [facility] nRBC % Auto 0.0 % [facility] nRBC Abs Auto 0.000 0.000 - 0.000 x10(3)/[facility] Blood 04/20/2023 3:11 AM EST 04/20/2023 3:24 AM EST Narrative Resulting Agency Comment Spec In Lab Ailyn Knight MD HEMATOLOGY ORDERABLE S [facility] [place] [address] * (ABNORMAL) BMP w/fasting Glucose (04/20/2023 3:11 AM EST) Glucose Fasting 107(H) 65 - 99 mg/dL [facility] Comment: ?Fasting* Glucose Interpretive Criteria [...] of Diabetes Mellitus, Position Statement from the [place] [employer]. ??Diabetes Care, Volume 33, Supplement 1, Mar 2009 BUN 20(H) 8 - 18 mg/dL [facility] Creatinine 1.05 0.70 - 1.20 mg/dL [facility] Sodium 139 135 - 145 mmol/L [facility] Potassium 3.6 3.5 - 5.0 mmol/L [facility] Comment: Please note: ??Patients with WBC >100,000 may have falsely elevated Potassium levels. ??For accurate Potassium quantification in these patients send serum separator tube (gold top) for subsequent determinations. ??Contact the Clinical Chemistry Laboratory if there are any questions. Chloride 106 98 - 107 mmol/L [facility] CO2 21(L) 22 - 31 mmol/L [facility] Anion Gap 12 5 - 15 mmol/L [facility] Calcium 9.3 8.5 - 10.5 mg/dL [facility] Estimated GFR 63 >=60 mL/min/1. 73 m?? [facility] [...] Address [facility] Co de Phone Number [facility] [place] [address] * Magnesium (04/20/2023 3:11 AM EST) Pathologist [facility] Magnesium 0.91 0.69 - 1.07 mmol/L [facility] Blood 04/20/2023 3:11 AM EST 04/20/2023 3:24 AM EST Narrative Resulting Agency Comment Spec In Lab Ailyn Knight MD CHEMISTRY ORDERABLES Performing Organization Address City/[facility] Co de Phone Number [facility] [place] [address] * Respiratory Panel PCR (04/19/2023 2:05 PM EST) Pathologist [facility] Resp Panel Source OPERATIONS LIAISON Swab MA RY [facility] Resp Panel PCR Negative Negative [facility] Comment: Respiratory Panels are performed on the [employer]Flash, using multiplexed PCR nucleic acid detection. ??Negative results do not preclude respiratory infection and should not be used as the sole basis for diagnosis, treatment or other management decisions. Adenovirus Not Detected Not Detected [facility] Coronavirus HKU1 Not Detected Not Detected [facility] Coronavirus NL63 Not Detected Not Detected [facility] Coronavirus 229E Not Detected Not Detected [facility] Coronavirus OC43 Not Detected Not Detected [facility] SARS-CoV-2 Not Detected Not Detected [facility] Comment: Testing for SARS-CoV-2 (Severe acute respiratory syndrome coronavirus 2) to aid in the diagnosis of COVID-19 is performed using the BioFire Respiratory Panel 2.1 (GENWI) as authorized by the FDA issued Emergency Use Authorization (EUA). This panel also tests for multiple other viral and bacterial pathogens. This assay is intended for In-vitro Diagnostic (IVD) use with nasopharyngeal swabs in viral transport media. The assay is performed based on the instructions for use and additional guidance provided by the FDA. Testing is performed in laboratories within the [facility], each of which is certified under [...] fact sheets at the following FDA website: https://www.fda.gov/medical-devices/lffhxijqxdn-rhodxvk-9552-hhscq-15-smugibisa- use-a nncxyuqwxgptd-whjvnus-biemozj/hgqgy-xmpebgehyre-rbrl Human Metapneumovirus Not Detected Not Detected [facility] Human Rhino/Enterovirus Not Detected Not Detected [facility] Influenza A Not Detected Not Detected [facility] Influenza B Not Detected Not Detected [facility] Parainfluenza 1 Not Detected Not Detected [facility] Parainfluenza 2 Not Detected Not Detected [facility] Parainfluenza 3 Not Detected Not Detected [facility] Parainfluenza 4 Not Detected Not Detected [facility] Respiratory Syncytial Virus Not Detected Not Detected [facility] Chlamydophila pneumoniae Not Detected Not Detected [facility] Mycoplasma pneumoniae Not Detected Not Detected [facility] Nasopharyngeal Swab Other / Unknown 04/19 2:05 PM EST 04/19/2023 3:16 PM EST Narrative Resulting Agency Comment Spec In Lab Carrol SANDRA MICROBIOLOGY - GENER AL ORDERABLES Performing Organization Address City/[facility] Co de Phone Number [facility] [place] [address] * (ABNORMAL) Urine culture (04/19/2023 10:25 AM EST) Urine Culture 10,000-49,000 cfu/ml mixed mucosal elmer Note: Culture shows multiple bacterial species suggesting mucosal contamination. (A) [facility] Clean Catch Urine 04/19/2023 10:25 AM EST 04/19/2023 12:49 PM EST Narrative Resulting Agency Comment Spec In Lab Carrol SANDRA MICROBIOLOGY - GENER AL ORDERABLES Performing Organization Address City/[facility]/ZIP Co de Phone Number [facility] [place] [address] * (ABNORMAL) Urinalysis Microscopic Exam (04/19/2023 10:25 AM EST) RBC UA 1 0 - 4 /HPF [facility] WBC UA 10(H) 0 - 5 /HPF [facility] Squam Epith UA 4 <=4 /HPF [facility] Hyaline Cast UA 1 0 - 2 /LPF [facility] Clean Catch Urine 04/19/2023 10:25 AM EST 04/19/2023 11:08 AM EST Narrative Resulting Agency Comment Spec In Lab Carrol SANDRA URINE ORDERABLES Performing Organization Address [facility] Co de Phone Number [facility] [place] [address] * (ABNORMAL) Urinalysis with reflex Culture (04/19/2023 10:25 AM EST) Glucose UA >=1000(Crit ical) Negative mg/dL [facility] Comment: Urinalysis result NOT critical without a combination of Glucose greater than or equal to 500 mg/dL AND Ketones greater than or equal to 80 mg/dL Protein UA Negative Negative mg/dL [facility] Bilirubin UA Negative Negative mg/dL [facility] Comment: Clinical correlation required for positive Urine Bilirubin results as false positive may occur with some drugs and drug related products. If a false positive is suspected a serum total bilirubin should be considered if clinically indicated. Urobilinogen UA Normal Normal mg/dL [facility] pH UA 5.5 5.0 - 8.0 [facility] Blood UA Negative Negative mg/dL [facility] Ketones UA Negative Negative mg/dL [facility] Nitrite UA Negative Negative [facility] Leukocytes UA Small(A) Negative [facility] Appearance UA Clear Clear [facility] Spec Varney UA 1.024 1.005 - 1.030 [facility] Color UA Yellow Yellow [facility] Culture Reflexed Yes LAZARUS Y [facility] Clean Catch Urine 04/19/2023 10:25 AM EST 04/19/2023 11:08 AM EST Narrative Resulting Agency Comment Spec In Lab Ailyn Knight MD URINE ORDERABLES [facility] [place] [address] * Arterial Duplex Arm, Unilat (04/19/2023 9:40 AM EST) VB Text Report Department: Vascular Surgery Lab Patient: [id number] (LOIDA MADRIGAL) CPT: 49280 Referring Physician: AILYN KNIGHT ?? Phone: Indications: [...] AM EST) WBC 7.5 4.0 - 9.5 x10(3)/[facility] RBC 4.86 4.00 - 5.21 x10(6)/[facility] Hemoglobin 14.8 11.7 - 15.5 g/dL [facility] Hematocrit 45.5 35.7 - 45.8 % [facility] MCV 93.6 82.6 - 94.4 [facility] MCH 30.5 27.1 - 32.0 pg [facility] MCHC 32.5 31.7 - 35.0 g/dL [facility] Platelets 240 145 - 357 x10(3)/[facility] RDWSD 43.8 37.0 - 46.0 [facility] RDWCV 12.7 11.5 - 14.1 % [facility] MPV 11.0 7.6 - 12.9 [facility] nRBC % Auto 0.0 % [facility] nRBC Abs Auto 0.000 0.000 - 0.000 x10(3)/mcL [facility] Blood 04/19/2023 2:40 AM EST 04/19/2023 2:57 AM EST Narrative Resulting Agency Comment Spec In Lab Ailyn Knight MD HEMATOLOGY ORDERABLE S [facility] [place] [address] * (ABNORMAL) BMP w/fasting Glucose (04/19/2023 2:40 AM EST) Glucose Fasting 106(H) 65 - 99 mg/dL [facility] Comment: ?Fasting* Glucose Interpretive Criteria [...] of Diabetes Mellitus, Position Statement from the [place] [employer]. ??Diabetes Care, Volume 33, Supplement 1, Mar 2009 BUN 22(H) 8 - 18 mg/dL [facility] Creatinine 1.11 0.70 - 1.20 mg/dL [facility] Sodium 139 135 - 145 mmol/L [facility] Potassium 4.0 3.5 - 5.0 mmol/L [facility] Comment: Please note: ??Patients with WBC >100,000 may have falsely elevated Potassium levels. ??For accurate Potassium quantification in these patients send serum separator tube (gold top) for subsequent determinations. ??Contact the Clinical Chemistry Laboratory if there are any questions. Chloride 105 98 - 107 mmol/L [facility] CO2 20(L) 22 - 31 mmol/L [facility] Anion Gap 14 5 - 15 mmol/L [facility] Calcium 9.5 8.5 - 10.5 mg/dL [facility] Estimated GFR 59(L) >=60 mL/min/1. 73 m?? [facility] [...] Address [facility] Co de Phone Number [facility] [place] [address] * Magnesium (04/19/2023 2:40 AM EST) Magnesium 0.97 0.69 - 1.07 mmol/L [facility] Blood 04/19/2023 2:40 AM EST 04/19/2023 2:57 AM EST Narrative Resulting Agency Comment Spec In Lab Ailyn Knight MD CHEMISTRY ORDERABLES Performing Organization Address [facility] Co de Phone Number [facility] [place] [address] * CARDIAC CATHETERIZATION (04/18/2023 11:05 AM EST) Anatomical Region Laterality Modality Other Narrative 04/19/2023 6:57 AM EST ?[facility] ? Cardiac Catheterization/Intervention Report ? Patient Name: Neisha, Loida ? Procedure Date: 04/18/2023 ? A #: [id number] ? Primary Physician: Young, Dustin N ? Case #: [id number] ? File Name: [id number] ? Catheterization Order Number: [id number] ? [facility] ? Final Report [place], [place] ? Patient Name: ? Loida Neisha ? ID#: ?[id number] ? : ?1970 ? Procedure Date: ? April 18, 2023 ?Case #: ? [id number] ? Room: ? 6 ? Case Physician: ? Dustin Carrasco M.D. ?Start: ?10:26 ? Admission: ??04/16/2023 ? Referring Physician: ??Stuart Iyer M.D. ? Procedures: ?* Coronary Angiography ?* [...] procedure was Urgent. 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 [...] Procedure Note Dustin Carrasco MD - 05/03/2023 [facility] Cardiac Catheterization/Intervention Report Patient Name: Loida Madrigal Procedure Date: 04/18/2023 A #: [id number] Primary Physician: Dustin Carrasco Case #: [id number] File Name: [id number] Catheterization Order Number: [id number] [facility] FinalReport [place], [place] Patient Name: Loida Madrigal ID#:[id number] :1970 Procedure Date: April 18, 2023 Case #: [id number] Room: 6 Case Physician: Dustin Carrasco M.D. Start: 10:26 Admission:04/16/2023 Referring Physician: Stuart Iyer M.D. Procedures: [...] patient was designated as ASA Class III. [facility] 4: Vulnerable. Diagnostic [...] diagnostic procedure was Urgent. 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 [...] units of heparin were administered. A total [id number] of Omnipaque were opened, 65cc of Omnipaque were administered [id number] of Omnipaque were wasted. Radiation: Fluoro time [...] AM EST) Heparin UFH Level 0.39 IU/mL [facility] Comment: Heparin [...] Lab Terrence Maloney MD HEMATOLOGY ORDERABLE S [facility] [place] [address] * Differential, Automated (04/18/2023 2:10 AM EST) Neutrophils % 51.4 % [facility] Neutr Abs (ANC) 3.43 1.70 - 6.10 x10(3)/[facility] Lymphocytes % 33.8 % [facility] Lymphocytes Abs 2.2 0.9 - 3.2 x10(3)/[facility] Monocytes % 9.9 % [facility] Monocyte Abs 0.7 0.3 - 0.9 x10(3)/[facility] Eosinophils % 3.9 % [facility] Eosinophils Abs 0.3 0.0 - 0.4 x10(3)/[facility] Basophils % 0.8 % [facility] Basophils Abs 0.0 0.0 - 0.1 x10(3)/[facility] Immature Gran % 0.20 % [facility] Comment: Immature granulocytes(IG's)percentage and absolute count will include metamyelocytes, myelocytes, and promyelocytes. Blood smears from CBCs yielding IG's will be scanned manually for concordance. If this scan disagrees with the automated IG or if promyelocytes are noted, a manual differential will be performed. Shonda Gran Abs 0.01 0.00 - 0.04 x10(3)/[facility] Blood 04/18/2023 2:10 AM EST 04/18/2023 2:44 AM EST Narrative Resulting Agency Comment Spec In Lab Terrence Maloney MD HEMATOLOGY ORDERABLE S [facility] [place] [address] * Hemogram (04/18/2023 2:10 AM EST) WBC 6.7 4.0 - 9.5 x10(3)/[facility] RBC 4.93 4.00 - 5.21 x10(6)/[facility] Hemoglobin 15.2 11.7 - 15.5 g/dL [facility] Hematocrit 44.9 35.7 - 45.8 % [facility] MCV 91.1 82.6 - 94.4 fL [facility] MCH 30.8 27.1 - 32.0 pg [facility] MCHC 33.9 31.7 - 35.0 g/dL [facility] Platelets 233 145 - 357 x10(3)/[facility] RDWSD 42.0 37.0 - 46.0 [facility]ATORY RDWCV 12.8 11.5 - 14.1 % [facility] MPV 11.3 7.6 - 12.9 [facility] LABORATORY nRBC % Auto 0.0 % [facility] nRBC Abs Auto 0.000 0.000 - 0.000 x10(3)/[facility] Blood 04/18/2023 2:10 AM EST 04/18/2023 2:44 AM EST Narrative Resulting Agency Comment Spec In Lab Terrence Maloney MD HEMATOLOGY ORDERABLE S Performing Organization Address City/State/[facility] Co de Phone Number [facility] [place] [address] * Heparin (unfractionated) Level (04/18/2023 2:10 AM EST) Heparin UFH Level 0.50 IU/mL [facility] Comment: Heparin [...] Lab Terrence Maloney MD HEMATOLOGY ORDERABLE S [facility] [place] [address] * (ABNORMAL) BMP w/fasting Glucose (04/18/2023 2:10 AM EST) Glucose Fasting 98 65 - 99 mg/dL [facility] Comment: ?Fasting* Glucose Interpretive Criteria [...] of Diabetes Mellitus, Position Statement from the [place] [employer]. ??Diabetes Care, Volume 33, Supplement 1, Mar 2009 BUN 23(H) 8 - 18 mg/dL [facility] Creatinine 1.18 0.70 - 1.20 mg/dL [facility] Sodium 143 135 - 145 mmol/L [facility] Potassium 3.6 3.5 - 5.0 mmol/L [facility] Comment: Please note: ??Patients with WBC >100,000 may have falsely elevated Potassium levels. ??For accurate Potassium quantification in these patients send serum separator tube (gold top) for subsequent determinations. ??Contact the Clinical Chemistry Laboratory if there are any questions. Chloride 107 98 - 107 mmol/L [facility] CO2 24 22 - 31 mmol/L [facility] Anion Gap 12 5 - 15 mmol/L [facility] Calcium 9.2 8.5 - 10.5 mg/dL [facility] Estimated GFR 55(L) >=60 mL/min/1. 73 m?? [facility] Knight MD CHEMISTRY ORDERABLES Performing Organization Address City/[facility] Co de Phone Number [facility] [place] [address] * Magnesium (04/18/2023 2:10 AM EST) Magnesium 1.02 0.69 - 1.07 mmol/L [facility] Blood 04/18/2023 2:10 AM EST 04/18/2023 2:44 AM EST Narrative Resulting Agency Comment Spec In Lab Ailyn Knight MD CHEMISTRY ORDERABLES Performing Organization Address City/[facility]/ZIP Co de Phone Number [facility] [place] [address] * LDL Cholesterol, Direct (04/18/2023 2:10 AM EST) LDL Chol Direct 105 mg/dL [facility] Comment: Lowest Risk: <100 mg/dL Lower Risk: 100-129 mg/dL Borderline High Risk: 130-159 mg/dL High Risk: 160-189 mg/dL Very High Risk: >dt=080 mg/dL Blood 04/18/2023 2:10 AM EST 04/18/2023 2:44 AM EST Narrative Resulting Agency Comment Spec In Lab Terrence Maloney MD CHEMISTRY ORDERABLES Performing Organization Address [facility] Co de Phone Number [facility] [place] [address] * Hemoglobin A1c (04/18/2023 2:10 AM EST) Hemoglobin A1C 5.6 4.3 - 5.6 % [facility] Comment: Reference Range: 4.3 - [...] Mellitus, Diabetes Care 2013; 36: Suppl. 1, W77-04 Est Avg Gluc 115 mg/dL [facility] Blood 04/18/2023 2:10 AM EST 04/18/2023 2:44 AM EST Narrative Resulting Agency Comment Spec In Lab Terrence Maloney MD CHEMISTRY ORDERABLES Performing Organization Address [facility] Co de Phone Number [facility] [place] [address] * Lipid Panel (Reflex Direct LDL) (04/18/2023 2:10 AM EST) Chol, Total 173 mg/dL [facility] Comment: Lower Risk: <200 mg/dL Average Risk: 200-239 mg/dL Higher Risk: >xb=210 mg/dL Triglycerides 174 mg/dL [facility] Comment: Average Risk/Lower Risk: <150 mg/dL Borderline High Risk: 150-199 mg/dL High Risk: 200-499 mg/dL Very High Risk: >gq=391 mg/dL HDL 44 mg/dL [facility] Comment: Males: ?? Higher Risk: <40 mg/dL Females: ?? Higher Risk: <50 mg/dL LDL Cholesterol 94 mg/dL [facility] Comment: Lowest Risk: <100 mg/dL Lower Risk: 100-129 mg/dL Borderline High Risk: 130-159 mg/dL High Risk: 160-189 mg/dL Very High Risk: >gx=717 mg/dL Chol/HDL Ratio 3.9 ratio [facility] Lipid Interpretation See Note [facility] Comment: Lipid management should be guided by a patient? s ASCVD risk, goals and preferences. ACC/AHA Guidelines recommend high intensity statin if clinical ASCVD or LDL greater than or equal to 190 mg/dL. http://[employer].com/XML-JZZ-Guaihoamx Adults aged 40-75 with LDL 70-189 mg/dL should have their 10 year ASCVD risk estimated with the ACC/AHA ASCVD risk hat checker http://tools.acc.org/LMYYR-Ydwo-Xkrvamszn/ Statin should be discussed if risk greater [...] In Lab Terrence Maloney MD CHEMISTRY ORDERABLES [facility] [place] [address] * POCT Glucose (04/17/2023 7:44 PM EST) POC Glucose 128 65 - 199 mg/dL [facility] Comment: Supplemental ranges: <140 mg/dL before meals <180 mg/dL all other times of the day Blood 04/17/2023 7:44 PM EST 04/17/2023 7:44 PM EST Ailyn Knight MD POINT OF CARE TEST O RDERABLES Performing Organization Address [facility] Co de Phone Number [facility] [place] [address] * (ABNORMAL) Heparin (unfractionated) Level (04/17/2023 6:01 PM EST) [facility] Heparin UFH Level 1.14(Crit ical) IU/mL [facility] Comment: Critical Result called by [...] Address [facility] Co de Phone Number [facility] [place] [address] * (ABNORMAL) Heparin (unfractionated) Level (04/17/2023 12:45 PM EST) Heparin UFH Level 1.39(Crit ical) IU/mL [facility] Comment: Critical Result called by [...] Lab Ailyn Knight MD HEMATOLOGY ORDERABLE S [facility] [place] [address] * ECHO LMTD W CONTRAST W LMTD SPEC DOPP COLOR DOPP (04/17/2023 11:59 AM EST) EF 58 HEARTLAB SYSTEM Anatomical Region Laterality Modality Cardiac Other 04/17/2023 10:2 4 AM EST Narrative 04/17/2023 12:09 PM EST [address] [place] [address] ? Echocardiogram Report Name: LOIDA MADRIGAL ? Study Date: 04/17/2023 10:24 AMBP: 114/64 mmHg ? Patient Location: : 1970 ? Height: 160 cm ? Account: [id number] Age: 53 yrs ? Weight: 98 kg Gender: Female ?BSA: 2.0 m2 Ordering Physician: TERRENCE MALONEY Referring Physician: TERRENCE MALONEY Performed By: HAIM Becerra Reason For Study: Chest pain; NSTEMI Exam Location: [facility]. Interpretation Summary Left ventricle is normal in size and wall thickness. Normal global systolic function with regional wall motion abnormalities as ascribed on the anterior/anterolateral aspect. Right ventricle is normal in size and systolic function. No significant cardiac valve findings. No pericardial effusion. Compared to prior study dated 02/09/2023, the extent of the anterior abnormal wall motion has increased. Procedure Limited - 42747. Image enhancement Optison was used for left [...] Note Jaspreet Kinsey MD - 04/17/2023 [address] [place] [address] Echocardiogram Report Name: LOIDA MADRIGAL Study Date: 0:24 AMBP: 114/64 mmHg Patient Location: : 1970 Height: 160 cm Account: [id number] Age: 53 yrs Weight: 98 kg Gender: Female BSA: 2.0 m2 Ordering Physician: TERRENCE MALONEY Referring Physician: TERRENCE MALONEY Performed By: HAIM Becerra Reason For Study: Chest pain; NSTEMI Exam Location: [facility]. Interpretation Summary Left ventricle is normal in size and wall thickness. Normal globalsystolic function with regional wall motion abnormalities as ascribed on the anterior/anterolateral aspect. Right ventricle is normal in size and systolic function. No significant cardiac valve findings. No pericardial effusion. Compared to prior study dated 02/09/2023, the extent of the anteriorabnormal wall motion has increased. Procedure Limited - 84032. Image enhancement Optison was used for left [...] EST) Heparin UFH Level 1.41(Crit ical) IU/mL [facility] Comment: Critical Result called by [...] Lab Terrence Maloney MD HEMATOLOGY ORDERABLE S [facility] [place] [address] * (ABNORMAL) Troponin (04/17/2023 6:43 AM EST) Troponin-T HS 23(H) <=14 ng/L [facility] Comment: This patient's troponin T [...] troponin value can be found in the [facility] Test Catalog Troponin - [facility] Test Catalog Reference: Fourth [place] Definition of Myocardial Infarction. Journal of the [place] [employer] 2018;72:5452-4804 Blood 04/17/2023 6:43 AM EST 04/17/2023 6:52 AM EST Narrative Resulting Agency Comment Spec In Lab Terrence Maloney MD CHEMISTRY ORDERABLES [facility] [place] [id number] * EKG 12 Lead (04/17/2023 3:41 AM EST) Ventricular rate 47 BPM MUSE SYSTEM Atrial Rate 47 BPM MUSE SYSTEM P-R Interval 186 ms MUSE SYSTEM QRS Duration 90 ms MUSE SYSTEM Q-T Interval 578 ms MUSE SYSTEM QTC Calculated (Bezet) 511 ms MUSE SYSTEM Calculated P [place] 24 degrees MUSE SYSTEM Calculated R [place] 23 degrees MUSE SYSTEM Calculated T [place] 27 degrees MUSE SYSTEM INTERPRETATION Sinus bradycardia with Premature atrial complexes Possible Left atrial enlargement Possible Lateral infarct , age undetermined Prolonged QT Abnormal ECG When compared with ECG of 01-APR-2023 12:28, Premature atrial complexes are now Present Vent. rate has decreased BY ??33 BPM Nonspecific T wave abnormality, improved in Anterior leads Confirmed by MD Angelo Danette ([id number]) on 04/20/2023 8:28:40 PM MUSE SYSTEM 04/17/2023 3:41 AM EST 04/20/2023 8:28 PM EST Terrence Maloney MD ECG ORDERABLES MUSE SYSTEM * Differential, Automated (04/17/2023 3:33 AM EST) Neutrophils % 54.4 % [facility] Neutr Abs (ANC) 4.02 1.70 - 6.10 x10(3)/[facility] Lymphocytes % 32.0 % [facility] Lymphocytes Abs 2.4 0.9 - 3.2 x10(3)/[facility] Monocytes % 8.7 % [facility] Monocyte Abs 0.6 0.3 - 0.9 x10(3)/[facility] Eosinophils % 3.9 % [facility] Eosinophils Abs 0.3 0.0 - 0.4 x10(3)/[facility] Basophils % 0.7 % [facility] Basophils Abs 0.0 0.0 - 0.1 x10(3)/[facility] Immature Gran % 0.30 % [facility] Comment: Immature granulocytes(IG's)percentage and absolute count will include metamyelocytes, myelocytes, and promyelocytes. Blood smears from CBCs yielding IG's will be scanned manually for concordance. If this scan disagrees with the automated IG or if promyelocytes are noted, a manual differential will be performed. Shonda Gran Abs 0.02 0.00 - 0.04 x10(3)/[facility] Blood 04/17/2023 3:33 AM EST 04/17/2023 3:42 AM EST Narrative Resulting Agency Comment Spec In Lab Terrence Maloney MD HEMATOLOGY ORDERABLE S [facility] [place] [address] * Hemogram (04/17/2023 3:33 AM EST) WBC 7.4 4.0 - 9.5 x10(3)/[facility] RBC 4.79 4.00 - 5.21 x10(6)/[facility] Hemoglobin 14.8 11.7 - 15.5 g/dL [facility] Hematocrit 44.3 35.7 - 45.8 % [facility] MCV 92.5 82.6 - 94.4 fL [facility] MCH 30.9 27.1 - 32.0 pg [facility] MCHC 33.4 31.7 - 35.0 g/dL [facility] Platelets 233 145 - 357 x10(3)/[facility] RDWSD 43.4 37.0 - 46.0 [facility] RDWCV 12.7 11.5 - 14.1 % [facility] MPV 11.0 7.6 - 12.9 [facility] nRBC % Auto 0.0 % [facility] nRBC Abs Auto 0.000 0.000 - 0.000 x10(3)/[facility] Blood 04/17/2023 3:33 AM EST 04/17/2023 3:42 AM EST Narrative Resulting Agency Comment Spec In Lab Terrence Maloney MD HEMATOLOGY ORDERABLE S [facility] [place] [address] * Sedimentation rate (04/17/2023 3:33 AM EST) Sed Rate 12 2 - 39 mm/hr [facility] MD HEMATOLOGY ORDERABLE S Performing Organization Address City/[facility]/ZIP Co de Phone Number [facility] [place] [address] * CRP, acute inflammation (04/17/2023 3:33 AM EST) CRP <3.0 <=4.9 mg/L [facility] Blood 04/17/2023 3:33 AM EST 04/17/2023 3:42 AM EST Narrative Resulting Agency Comment Spec In Lab Terrence Maloney MD CHEMISTRY ORDERABLES Performing Organization Address [facility] Co de Phone Number [facility] [place] [address] * (ABNORMAL) Troponin (04/17/2023 3:33 AM EST) Troponin-T HS 24(H) <=14 ng/L [facility] Comment: This patient's troponin T [...] troponin value can be found in the [facility] Test Catalog Troponin - [facility] Test Catalog Reference: Fourth [place] Definition of Myocardial Infarction. Journal of the [place] [employer] 2018;72:1382-5696 Blood 04/17/2023 3:33 AM EST 04/17/2023 3:42 AM EST Narrative Resulting Agency Comment Spec In Lab Terrence Maloney MD CHEMISTRY ORDERABLES Performing Organization Address [facility] Co de Phone Number [facility] [place] [address] * (ABNORMAL) APTT (04/17/2023 3:33 AM EST) PTT 40(H) 25 - 37 sec [facility] Comment: The PTT is NOT appropriate for heparin monitoring. Use the Anti-Xa level for heparin monitoring (HEP UFH) or LMWH monitoring (HEP LMW). A PTT less than 37 seconds generally indicates adequate hemostasis. Blood 04/17/2023 3:33 AM EST 04/17/2023 3:42 AM EST Narrative Resulting Agency Comment Spec In Lab Terrence Maloney MD HEMATOLOGY ORDERABLE S Performing Organization Address [facility] de Phone Number [facility] [place] [address] * (ABNORMAL) Prothrombin Time (04/17/2023 3:33 AM EST) PT 13.3(H) 9.4 - 12.5 sec [facility] INR 1.2 [facility] Comment: An INR [...] MD HEMATOLOGY ORDERABLE S Performing Organization Address City/[facility] Co de Phone Number [facility] [place] [address] * Hepatic Function Panel (04/17/2023 3:33 AM EST) [facility] Total Protein 6.9 6.1 - 8.0 g/dL [facility] Albumin 4.2 3.2 - 5.2 g/dL [facility] AST Not Perf 0 - 30 [facility] Comment: Unable to quantitate due to sample hemolysis. ??Sample redraw suggested. Called by: Danny Bowles, Read back by: Nyla Cassidy, Date/Time:04/17/23 05:06. ALT 17 0 - 30 unit/L [facility] Alk Phos 59 35 - 105 unit/L [facility] Total Bilirubin 0.4 0.2 - 1.3 mg/dL [facility] Bili, Direct 0.1 0.0 - 0.3 mg/dL [facility] Blood 04/17/2023 3:33 AM EST 04/17/2023 3:42 AM EST Narrative Resulting Agency Comment Spec In Lab Terrence Maloney MD CHEMISTRY ORDERABLES Performing Organization Address City/[facility]/ZIP Co de Phone Number [facility] [place] [address] * (ABNORMAL) pro-Brain Natriuretic Peptide (04/17/2023 3:33 AM EST) [facility] ProBNP 867(H) <=124 pg/mL [facility] Blood 04/17/2023 3:33 AM EST 04/17/2023 3:42 AM EST Narrative Resulting Agency Comment Spec In Lab Terrence Maloney MD CHEMISTRY ORDERABLES Performing Organization Address City/[facility]/ZIP Co de Phone Number [facility] [place] [address] * (ABNORMAL) TSH (04/17/2023 3:33 AM EST) TSH 5.93(H) 0.27 - 4.20 mcIU/mL [facility] Comment: Reference Interval (mcIU/mL): Females: ??First Trimester: 0.23-3.88 ??Second Trimester: 0.22-3.90 ??Third Trimester: 0.44-4.66 Blood 04/17/2023 3:33 AM EST 04/17/2023 3:42 AM EST Narrative Resulting Agency Comment Spec In Lab Terrence Maloney MD CHEMISTRY ORDERABLES Performing Organization Address [facility] Co de Phone Number [facility] [place] [address] * Phosphorus (04/17/2023 3:33 AM EST) Pathologist [facility] Phosphorus 4.1 2.5 - 4.5 mg/dL [facility] Blood 04/17/2023 3:33 AM EST 04/17/2023 3:42 AM EST Narrative Resulting Agency Comment Spec In Lab Terrence Maloney MD CHEMISTRY ORDERABLES Performing Organization Address [facility] Co de Phone Number [facility] [place] [address] * Magnesium (04/17/2023 3:33 AM EST) Pathologist [facility] Magnesium 0.99 0.69 - 1.07 mmol/L [facility] Blood 04/17/2023 3:33 AM EST 04/17/2023 3:42 AM EST Narrative Resulting Agency Comment Spec In Lab Terrence Maloney MD CHEMISTRY ORDERABLES Performing Organization Address [facility] Co de Phone Number [facility] [place] [address] * (ABNORMAL) Basic Metabolic Panel (non-fasting) (04/17/2023 3:33 AM EST) Pathologist [facility] Glucose Lvl 89 65 - 199 mg/dL [facility] Comment:Diabetes: >=200 mg/d L plus symptoms BUN 19(H) 8 - 18 mg/dL [facility] Creatinine 1.19 0.70 - 1.20 mg/dL [facility] Sodium 141 135 - 145 mmol/L [facility] Potassium 4.0 3.5 - 5.0 mmol/L [facility] Comment: Please note: ??Patients with WBC >100,000 may have falsely elevated Potassium levels. ??For accurate Potassium quantification in these patients send serum separator tube (gold top) for subsequent determinations. ??Contact the Clinical Chemistry Laboratory if there are any questions. Chloride 106 98 - 107 mmol/L [facility] CO2 22 22 - 31 mmol/L [facility] Anion Gap 13 5 - 15 mmol/L [facility] Calcium 9.4 8.5 - 10.5 mg/dL [facility] Estimated GFR 54(L) >=60 mL/min/1. 73 m?? [facility] [...] In Lab Terrence Maloney MD CHEMISTRY ORDERABLES [facility] [place] [address] * Film Library- Storage Only CT Chest (04/16/2023 12:00 AM EST) Narrative Dicom, Auditing User - 04/17/2023 3:00 AM EST This exam is auto-finalizing. It's purpose is for storage only. Pol[facility] FILM LIBRARY ORD ERABLES documented in this encounter Visit Diagnoses Diagnosis Chest pain, unspecified type Non-ST elevation myocardial infarction (NSTEMI) Acute myocardial infarction, subendocardial infarction, episode of care unspecified Swelling of hand, unspecified laterality Arm edema Edema NSTEMI (non-ST elevated myocardial infarction) Acute myocardial infarction, subendocardial infarction, episode of care unspecified Chest pain, unspecified type documented in this encounter Admitting Diagnoses Diagnosis [...] on 04/19/23 at 0900, Until Discontinued, Routine Given 04/22/2023 9:24 AM EST 2.5 mg Given 04/21/2023 8:13 AM EST 2.5 mg Given 04/20/2023 8:28 AM EST 2.5 mg apixaban (Eliquis) tablet 5 mg 5 mg, Oral, 2 TIMES DAILY, First dose on 04/19/23 at 1030, Until Discontinued, Anticoagulant, Routine, Restricted anticoagulant, choose the most appropriate response: Appoved indication of DVT and/or PE Given 04/22/2023 9:24 AM EST 5 mg Given 04/21/2023 9:01 PM EST 5 mg Given 04/21/2023 8:11 AM EST 5 mg aspirin chewable tablet 81 mg 81 mg, Oral, DAILY, First dose on [facility] 04/17/23 at 1430, Until Discontinued, Routine Given 04/19/2023 8:33 AM EST 81 mg Given 04/18/2023 8:36 AM EST 81 mg Given 04/17/2023 2:19 PM EST 81 mg atorvastatin (Lipitor) tablet 40 mg 40 mg, Oral, EVERY EVENING, First dose (after last modification) on 04/19/23 at 1700, Until Discontinued, Routine Given 04/21/2023 5:36 PM EST 40 mg Given 04/20/2023 4:18 PM EST 40 mg Given 04/19/2023 5:40 PM EST 40 mg atorvastatin (Lipitor) tablet 80 mg 80 mg, Oral, EVERY EVENING, First dose on 04/17/23 at 1700, Until Discontinued, Routine Given 04/18/2023 5:33 PM EST 80 mg Given 04/17/2023 6:55 PM EST 80 mg atropine (0.1 mg/mL) injection 1 mg 1 mg, Intravenous, EVERY 5 MIN PRN, 2 doses, Starting on 04/19/23 at 0431, Until Aura 04/22/23 at 1956, Other, vasovagal episode, Call interventional MDJessi , Cath (Rec[facility]), Routine DULoxetine DR (Cymbalta) capsule 60 mg 60 mg, Oral, DAILY, First dose on 04/17/23 at 0900, Until Discontinued, Routine Given 04/22/2023 9:23 AM EST 60 mg Given 04/21/2023 8:12 AM EST 60 mg Given 04/20/2023 8:30 AM EST 60 mg gabapentin (Neurontin) capsule 600 mg 600 mg, Oral, NIGHTLY, First dose on 04/17/23 at 2100, Until Discontinued, Routine Given 04/21/2023 9:01 PM EST 600 mg Given 04/20/2023 8:10 PM EST 600 mg Given 04/19/2023 8:00 PM EST 600 mg gadoterate meglumine (Dotarem) (0.5 mMol/mL) injection solution 0-100 mL 0-100 mL, Intravenous, ONCE PRN, 1 dose, Starting on 04/21/23 at 1245, Until 04/21/23 at 1205, Per Protocol, Radiology Contrast, Routine Given 04/21/2023 12:05 PM EST 40 mLs heparin (porcine) 50 units/mL in dextrose 5% 500 mL infusion 0-5,000 Units/hr (0-100 mL/hr), Intravenous, CONTINUOUS, Starting on 04/17/23 at 0400, Until 04/18/23 at 1833, Begin infusion at 1,500 units per hr (15 units/kg/hr). Maximum initial [...] Level - Per Protocol, Routine New Bag 04/18/2023 4:04 AM EST 600 Units/hr 12 mL/hr Rate/Dose Verify 04/18/2023 2:10 AM EST 600 Units/hr 12 mL /hr New Bag 04/17/2023 8:12 PM EST 600 Units/hr 12 mL/hr pantoprazole EC (Protonix) tablet 40 mg 40 mg, Oral, DAILY, First dose on Wed04/17/23 at 0900, Until Discontinued Given 04/22/2023 9:25 AM EST 40 mg Given 04/21/2023 8:11 AM EST 40 mg Given 04/20/2023 8:30 AM EST 40 mg potassium chloride ER (Klor-Con M) crystal tablet 40 mEq 40 mEq, Oral, ONCE, 1 dose, On 04/18/23 at 0815, potassium chloride ER particle/crystal tablets (Klor-Con M) may be broken in half and each half swallowed separately. Tablets can be dissolved in ~4 ounces of water; allow ~2 minutes to dissolve, stir well and drink immediately. Do not crush, chew, or suck on tablet., Routine Given 04/18/2023 8:36 AM EST 40 mEq potassium chloride ER (Klor-Con M) crystal tablet 40 mEq 40 mEq, Oral, ONCE, 1 dose, On 04/20/23 at 0900, potassium chloride ER particle/crystal tablets (Klor-Con M) may be broken in half and each half swallowed separately. Tablets can be dissolved in ~4 ounces of water; allow ~2 minutes to dissolve, stir well and drink immediately. Do not crush, chew, or suck on tablet., Routine Given 04/20/2023 8:30 AM EST 40 mEq rOPINIRole (Requip) tablet 2 mg 2 mg, Oral, 2 TIMES DAILY, First dose on 04/17/23 at 0900, Until Discontinued, Routine Given 04/22/2023 9:25 AM EST 2 mg Given 04/21/2023 9:01 PM EST 2 mg Given 04/21/2023 8:12 AM EST 2 mg sodium chloride 0.9 % (flush) (BD PosiFlush Normal Saline 0.9) flush 5 mL 5 mL, Intravenous, 2 TIMES DAILY, First dose on Wed04/17/23 at 0900, Until Discontinued, Routine Given 04/22/2023 9:27 AM EST 5 mLs Given 04/21/2023 9:01 PM EST 5 mLs Given 04/21/2023 8:18 AM EST 5 mLs sodium chloride 0.9% infusion 100 mL/hr, Intravenous, CONTINUOUS, Starting on 04/18/23 at 1215, Until 04/18/23 at 1414, Recovery (Recovery-Hospital Unit) New Bag 04/18/2023 11:37 AM EST 100 mL/hr 100 m L/hr spironolactone (Aldactone) tablet 25 mg 25 mg, [...] Given 04/20/2023 8:30 AM EST 20 mg torsemide (Demadex) tablet 20 mg 20 mg, Oral, ONCE, 1 dose, On Wed04/21/23 at 1500, Routine Given 04/21/2023 3:18 PM EST 20 mg documented in this encounter Active and Recently Administered Medications Times are shown in EST. Scheduled Medication Order 04/20/2023 04/21/2023 04/22/2023 amLODIPine (Norvasc) tablet 2.5 mg 2.5 mg, Oral, DAILY, First dose on 04/19/23 at 0900, Until Discontinued, Routine 08 (Given - Provider: Chilo Nickerson RN) 08 (Given - Provider: Charity Jackson RN) 0924 (Given - Provider: China Myers) apixaban (Eliquis) tablet 5 mg 5 mg, Oral, 2 TIMES DAILY, First dose on Wed04/19/23 at 1030, Until Discontinued, Anticoagulant, Routine, Restricted anticoagulant, choose the most appropriate response: Appoved indication of DVT and/or PE 829 (Given - Provider: Chilo Nickerson RN)2010 (Given - Provider: Zoila Rooney RN) 810 (Given - Provider: Charity Jackson RN)2100 (Given - Provider: Zoila Rooney RN) 923 (Given - Provider: China Myers) atorvastatin (Lipitor) tablet 40 mg 40 mg, Oral, EVERY EVENING, First dose (after last modification) on Wed04/19/23 at 1700, Until Discontinued, Routine 161 (Given - Provider: Chilo Nickerson RN) 1736 (Given - Provider: Charity Jackson RN) 1700 (Due) DULoxetine DR (Cymbalta) capsule 60 mg 60 mg, Oral, DAILY, First dose on 04/17/23 at 0900, Until Discontinued, Routine 829 (Given - Provider: Chilo Nickerson RN) 811 (Given - Provider: Charity Jackson RN) 922 (Given - Provider: China Myers) gabapentin (Neurontin) capsule 600 mg 600 mg, Oral, NIGHTLY, First dose on 04/17/23 at 2100, Until Discontinued, Routine 2009 (Given - Provider: Zoila Rooney RN) 2100 (Given - Provider: Zoila Rooney RN) pantoprazole EC (Protonix) tablet 40 mg 40 mg, Oral, DAILY, First dose on 04/17/23 at 0900, Until Discontinued 829 (Given - Provider: Chilo Nickerson RN) 810 (Given - Provider: Charity Jackson RN) 924 (Given - Provider: China Myers) potassium chloride [...] crush, chew, or suck on tablet., Routine 829 (Given - Provider: Chilo Nickerson RN) rOPINIRole (Requip) tablet 2 mg 2 mg, Oral, 2 TIMES DAILY, First dose on 04/17/23 at 0900, Until Discontinued, Routine 827 (Given - Provider: Chilo Nickerson RN)2010 (Given - Provider: Zoila Rooney RN) 811 (Given - Provider: Charity Jackson, ERWIN)2100 (Given - Provider: Zoila Rooney RN) 924 (Given - Provider: China Myers) sodium chloride 0.9 % (flush) (BD PosiFlush Normal Saline 0.9) flush 5 mL 5 mL, Intravenous, 2 TIMES DAILY, First dose on 04/17/23 at 0900, Until Discontinued, Routine 830 (Given - Provider: Chilo Nickerson RN)2010 (Given - Provider: Zoila Rooney RN) 817 (Given - Provider: Charity Jackson RN)2100 (Given - Provider: Zoila Rooney RN) 926 (Given - Provider: China Myers) spironolactone (Aldactone) tablet 25 mg 25 mg, Oral, DAILY, First dose on 04/17/23 at 0900, Until Discontinued, DO NOT SPLIT, CRUSH OR OPEN, Routine 828 (Given - Provider: Chilo Nickerson RN) 811 (Given - Provider: Charity Jackson, ERWIN) 924 (Given - Provider: China Myers) topiramate (Topamax) tablet 100 mg 100 mg, Oral, NIGHTLY, First dose on 04/17/23 at 2100, Until Discontinued, Routine 2010 (Given - Provider: Zoila Rooney RN) 2100 (Given - Provider: Zoila Rooney RN) torsemide (Demadex) tablet 20 mg 20 mg, Oral, DAILY, First dose on 04/17/23 at 0900, Until Discontinued, Routine 0830 (Given - Provider: Chilo Nickerson RN) 0812 (Given - Provider: Charity Jackson, ERWIN) 0924 (Given - Provider: China Myers) torsemide (Demadex) tablet 20 mg (COMPLETED) 20 [...] at 0304, Until Aura 04/22/23 at 1956, Chest pain, May repeat every 5 minutes [...] documented as of this encounter Care Teams Crankshaft Grinder Relationship Specialty Start Date End Date Polo Pearce PA [address] [place] [address] PCP - General Internal Medicine 06/09/21 documented as of this encounter
--- OUTSIDE RECORDS SUMMARY | 2023-09-20 14:35 | XMS_ITS | Encounter Summary ---
Author [place] [address] Care Team Providers Care Jira Developer Name Role Phone Polo Pearce Primary Care Provider [phone] Reason for Visit * Auth/Cert (Routine) Specialty Diagnoses / Procedures Referred By Jayant harris Referred To Contact Diagnoses NSTEMI (non-ST elevated myocardial infarction) NSTEMI Procedures ER Lloyd Pantoja MD [facility] [place] [address] [facility] Referral ID Status Reason Start Date Expiration Date Visits Re quested Visits Authorized [id number] 1 1 Encounter Details Date Type Department Care Team (Latest Contact Info) Description 04/17/2023 9:15 AM EST - 04/17/2023 11:59 PM EST Hospital Encounter Non-Invasive [place] [address] Discharge Disposition: Home Social History Tobacco Use Types Packs/Day Years Used Date Smoking Tobacco: Never Smokeless Tobacco: Never Alcohol Use Standard Drinks/Week Comments Never 0 (1 standard drink = 0.6 oz pur e alcohol) [facility] Utilities Answer Date Recorded In the [...] slept in a assisted (including now)? No 02/10/2023 DH IPV Inpatient Questions Answer Date Recorded [...] as needed. fluticasone propionate (FLONASE) 50 mcg/actuation [place], Suspension 1 spray by Each Nare route [...] 08/13/2020 04/22/2023 documented as of this encounter Plan of Treatment Upcoming Encounters Date Type Department Care Team (Late st Contact Info) Description 10/08/2023 8:30 AM EDT Tech Visit [place] [address] Jose Cook 10/08/2023 9:30 AM EDT Office [place] [address] [facility] [place] [address] 10/21/2023 10:30 AM EDT Appointment Nuclear Medicine at [address] Mary Reyes, [facility] [place] [address] 10/21/2023 11:30 AM EDT Appointment Nuclear Medicine at [address] Mary Reyes [facility] [place] [address] 10/21/2023 12:30 PM EDT Appointment [place] [address] Mary Reyes [facility] [place] [address] 10/21/2023 1:30 PM EDT Appointment [place] [address] Mary Reyes [facility] [place] [address] 10/21/2023 2:30 PM EDT Appointment [place] [address] Mary Reyes [facility] [place] [address] 10/26/2023 4:00 PM EDT Office Visit Cardiology at [address] [place] [address] Jaspreet Kinsey MD [facility] [place] [address] 10/28/2023 9:00 AM EDT Office Visit [place] [address] 10/29/2023 10:00 AM EDT Clinical Support [place] [address] 10/29/2023 10:15 AM EDT Procedure visit G[place] [address] 11/01/2023 5:00 PM EDT Office [place] [phone] Selene Browning, PhD [facility] [place] [address] 11/22/2023 4:40 PM EDT Office Visit Cardiology at [address] [phone] [address] [facility] [place] [address] 12/13/2023 10:00 AM EDT Clinical [place] [phone] [facility] [place] [address] documented as of this encounter Procedures Procedure Name Priority Date/Time Associated Diagnosis Comments ECHO LMTD W CONTRAST W LMTD SPEC DOPP COLOR DOPP Routine 04/17/2023 11:59 AM EST Chest pain, unspecified type Non-ST elevation myocardial infarction (NSTEMI) documented in this encounter Visit Diagnoses Not on filedocumented in this encounter Administered Medications Inactive Administered Medications - up to 3 most recent administrations Medication Order MAR Action Action Date Dose Rate Site perflutren protein-A microsphers (Optison) (0.22 mg/mL) injection 0.5 mL 0.5 mL, Intravenous, ONCE PRN, 1 dose, Starting on 04/17/23 at 1200, Until 04/17/23 at 1100, for enhancement of sub-optimal echo images, Echo Lab (Intra-Procedure), Routine Given 04/17/2023 11:00 AM EST 0.5 mLs documented in this encounter Care Teams Jira Developer Relationship Specialty Start Date End Date Polo Pearce PA [address] [place] [address] PCP - General Internal Medicine 06/09/21 documented as of this encounter
--- OUTSIDE RECORDS SUMMARY | 2023-09-20 14:35 | XMS_ITS | Encounter Summary ---
Author Organization [facility] [place] [address] Care Team Providers Care Laundry Or Dry Cleaners Counter Clerk Name Role Phone Polo Pearce Primary Care Provider [phone] Reason for Visit * Auth/Cert (Routine) Specialty [...] THER/DX INTERVENT ELECTROPHYSIOLOGY PROCEDURE Jed Tovar MD [facility] [place] [address] [facility] Referral ID Status Reason Start Date Expiration Date Visits Re quested Visits Authorized [id number] 1 1 Encounter Details Date Type Department Care Team (Late st Contact Info) Description 04/01/2023 7:39 AM EST Anesthesia Event Electrophys[place] [phone] Merlin Lozoya MD [facility] [place] [address] Anesthesia Record Procedure Summary Procedure Name Responsible Anesthesiologist Anesthesia Start Time Anesthesia Stop Time ELECTROPHYSIOLOGY PROCEDURE Merlin Lozoya MD 04/01/23 0739 04/01/23 1131 Events Date Time Event Comment 04/01/2023 0714 0738 AN Verify 0739 Start 0739 An Start Data 0748 Quick Note Bp cuff failure 0750 An Induction 0750 An Intubation 0750 Quick Note Anesthesia mach ine checked within the last 24 hours. Leak test performed and passed immediatly prior to the case. Pt preoxygenated with 100% O2. Smooth IV induction. Eyes taped. Airway placed without incident. Atraumatic. Teeth as before. Airway secured with tape. Refer to the airway note for additional details. 0755 Anesthesia Ready 0800 Quick Note Bp cuff failure 0808 Procedure Start 0844 Quick Note Intermittent pa cing for svt mapping 0849 Break/Relief In I assumed ca re for Break Relief before which we: 1. Identified the patient 2. Identified the responsible provider(s) 3. Reviewed the pertinent medical history 4. Discussed the surgical plan and course 5. Reviewed intra-op anesthesia management and issues during anesthesia 6. Set expectations for the relief (and/or post-procedure) period 7. Allowed opportunity for questions and acknowledgement of understanding Mercedes Dupont CRNA 0908 Break/Relief Out 0921 Quick Note EP team request ing to lighten the anesthetic to help induce svt 1114 Extubation/LMA Out 1120 an stop data 1131 Stop Meds Name Total fentaNYL 100 mcg Propofol 220 mg Rocuronium 90 mg PHENYLephrine 160 mcg ePHEDrine 35 mg Ondansetron 4 mg Dexamethasone 4 mg PHENYLephrine INF 8,800 mcg isoproterenoL (IsupreL) (4 mcg/mL) in de xtrose 5% 250 mL infusion 120 mcg sugammadex 200 mg lactated ringers infusion 700 mL * Agents Name O2 * Blood No blood administrations on file. Lines, Drains, and Airways Type Details Placement Removal PIV 04/01/23; 07; 20 gauge; cephalic vein (lateral side of arm), left; distraction, intradermal injection, tolerated well; 04/01/23; 1532 04/01/23 0723 by Patricia Singer RN 04/01/23 153 by Gianna Bland, RN ETT Mask Ventilation: Adjunct (2); ETT Type: Cuffed; ETT Size: 7.5 mm; Mac Blade: 3; Notes: Asleep, Pre-O2, Stylette; Attempts: 1; Laryngoscopy Grade: 1; ETT Placement Verified By: Auscultation, Visual, Capnometry; Secured at Teeth: 22 cm; Inserted by: tanja; Removal Date: 04/01/23; Removal Time: 11104/01/23 0750 by Jaspreet Perry, RECREATION ENGINEER 04/01/23 1119 by Merlin Lozoya MD PIV 04/01/23; 0754; 18 gauge; dorsal arch vein (top of hand), right; Anatomical Landmarks; tanja; no longer indicated; 04/01/23; 1551 04/01/23 0754 by Jaspreet Perry, RECREATION ENGINEER 04/01/23 1551 by Gianna Bland RN LDA Cath/EP Sheath 04/01/23; 0823; 6.5 Cypriot (Fr); Left, Anterior; Femoral; Venous 04/01/23 0823 by Mary Herman RN 04/01/23 1056 by Mary Herman RN LDA Cath/EP Sheath 04/01/23; 0825; 6.5 Cypriot (Fr); Left, Anterior; Femoral; Venous 04/01/23 0825 by Mary Herman RN 04/01/23 1057 by Mary Herman RN LDA Cath/EP Sheath 04/01/23; 0825; 6.5 Cypriot (Fr); Left, Anterior; Femoral; Venous 04/01/23 0825 by Mary Herman RN 04/01/23 1057 by aMry Herman RN LDA Cath/EP Sheath 04/01/23; 0827; 6.5 Cypriot (Fr); Right, Anterior; Femoral; Venous 04/01/23 0827 by Mary Herman RN 04/01/23 1057 by Mary Herman RN LDA Cath/EP Sheath 04/01/23; 0833; 5.5 Cypriot (Fr); Right, Anterior; Femoral; Venous 04/01/23 0833 by Mary Herman RN 04/01/23 1058 by Mary Herman RN documented in this encounter Social History Tobacco Use Types Packs/Day Years Used Date Smoking Tobacco: Never Smokeless Tobacco: Never Alcohol Use Standard Drinks/Week Comments Never 0 (1 standard drink = 0.6 oz pur e alcohol) [facility] Utilities Answer Date Recorded [...] place to sleep or slept in a residential (including now)? No 02/10/2023 Sex and Gender Information Value Date Recorded Sex Assigned at Not on file Gender Identity Not on file Sexual Orientation Not on file documented as of this encounter OR Notes * Anesthesia Postprocedure Evaluation - Merlin Lozoya MD - 04/01/2023 7:00 PM EST Department of Anesthesiology Post-procedure Note Patient: Indira Roque Procedure Summary Date: 04/01/23 Room / Location: [facility] B-LAB ROOM 4 / [facility] Anesthesia Start: 738 Anesthesia Stop: 1130 Procedure: ELECTROPHYSIOLOGY PROCEDURE Diagnosis: SVT (supraventricular tachycardia) (SVT (supraventricular tachycardia) [I47.10]) Providers: Jed Tovar MD Responsible Provider: Merlin Lozoya MD Anesthesia Type: general ASA Status: 3 All Anesthesia Providers: Anesthesiologist: Merlin Lozoya MD RECREATION ENGINEER: Jaspreet Perry CRNA Vitals Value Taken Time BP 104/58 04/01/23 1345 Temp 36.4 ??C (97.5 ??F) 04/01/23 1315 Pulse 66 04/01/23 1346 Resp 14 04/01/23 1346 SpO2 96 % 04/01/23 1346 Pain Level Vitals shown include unfiled device data. Patient Location: PACU/LOCATED WITHIN [facility] Level of Consciousness: Awake and Alert Pain Management: Satisfactory Analgesia PONV: None Cardiovascular Status: Hemodynamically Stable Respiratory Status: At Baseline Postoperative Fluid Status: Intravascular EUvolemia Possible Anesthetic Complications: NONE apparent at time of evaluation Final Primary Anesthesia Type: General (The anesthetic type performed was the same as planned.) Comments: Awake, conversant and comfortable at time of handoff in PACU * Anesthesia Preprocedure Evaluation - Merlin Lozoya MD - 03/31/2023 8:30 PM EST Pre-Anesthesia Evaluation for: Indira Roque a 53 y.o. female. Procedure(s): ELECTROPHYSIOLOGY PROCEDURE Patient Active Problem List Diagnosis Date Noted ??? Endometriosis 03/18/2023 ??? Stenosis of left carotid artery greater than 50% 03/18/2023 ??? Restrictive lung disease secondary to obesity 03/18/2023 ??? Paresthesia of hand, bilateral 03/18/2023 ??? Paroxysmal atrial fibrillation 10/22/2022 ??? Pulmonary embolus 07/30/2022 ??? SVT (supraventricular tachycardia) 07/23/2021 ??? Obesity [...] Drug Use Never Allergies Allergen Reactions ??? Clobetasol Rash Other reaction(s): Skin Rash Medications: MAR and/or home medications have been reviewed. Physical Exam: Preprocedure Vitals Current as of 03/31/23 2030 No BP, pulse, respiration, SpO2, or temperature recorded. Height: 162.6 cm (5' 4) (02/16/23) Weight: 98.7 kg (217 lb 8 oz) (02/16/23) BMI: 37.33 IBW: 54.7 kg (120 lb 10.7 oz) Airway Assessment: Mallampati: II TM distance: <3 FB Neck ROM: full Cardiovascular Assessment: Rhythm: regular Rate: normal Pulmonary Assessment: breath sounds clear to auscultation Dental Assessment: - normal exam Misc Assessment: Last Filed Perioperative Cognitive Screening None Anesthesia Plan: ASA 3 general, with a(n) intravenous induction Addendum 04/01/2023 (MD Devora): 53yo for SVT ablation. BMI 38, COPD/asthma, MARYLOU (CPAP), HFpEF (most recent EF59% 02/2023; no sig valve issues); pAF, PE (07/2022->apixaban). No interval change. Pt requests to proceed Region - Intrathoracic Cardiac Informed Consent: Anesthetic plan and risks discussed with patient. Plan discussed with RECREATION ENGINEER. Anesthesia Screening documented in this encounter Plan of Treatment Upcoming Encounters Date Type Department Care Team (Late st Contact Info) Description 10/08/2023 8:30 AM EDT Tech Visit Vascular Lab at [place] [phone] Jose Cook 10/08/2023 9:30 AM EDT Office Visit [place] [address] MD [facility] [place] [address] 10/21/2023 10:30 AM EDT Appointment Nuclear Medicine at [place] [phone] Mary Reyes [facility] [place] [address] 10/21/2023 11:30 AM EDT Appointment [place] [address] Mary Reyes [facility] [place] [address] 10/21/2023 12:30 PM EDT Appointment [place] [address] Mary Reyes [facility] [place] [address] 10/21/2023 1:30 PM EDT Appointment [place] [phone] Mary Reyes [facility] [place] [address] 10/21/2023 2:30 PM EDT Appointment [place] [phone] Mary Reyes APRN [facility] [place] [address] 10/26/2023 4:00 PM EDT Office Visit Cardiology at [address] [phone] Jaspreet Kinsey MD [facility] [place] [address] 10/28/2023 9:00 AM EDT Office [place] [address] 10/29/2023 10:00 AM EDT Clinical [place] [address] 10/29/2023 10:15 AM EDT Procedure [place] [address] 11/01/2023 5:00 PM EDT Office Visit Gastroenterology at [place] [phone] Selene Browning, PhD [facility] [place] [address] 11/22/2023 4:40 PM EDT Office Visit Cardiology at [place] [phone] Porsha Mcdaniels MD [facility] [place] [address] 12/13/2023 10:00 AM EDT Clinical Support [place] [phone] [facility] [place] [address] documented as of this encounter Visit Diagnoses Not on filedocumented in this encounter Administered Medications Inactive Administered Medications - up to 3 most recent administrations Medication Order MAR Action Action Date Dose Rate Site dexAMETHasone (Decadron) injection Intravenous, PRN, Starting on Aura 04/01/23 at 0750, Until Aura 04/01/23 at 1135, Anesthesia Intra-op, Routine Given 04/01/2023 7:50 AM EST 4 mg ePHEDrine sulfate (5 mg/mL) multi-dose injection Intravenous, PRN, Starting on Aura 04/01/23 at 0750, Until Aura 04/01/23 at 1135, Anesthesia Intra-op, Routine Given 04/01/2023 8:22 AM EST 10 mg Given 04/01/2023 8:09 AM EST 10 mg Given 04/01/2023 8:06 AM EST 10 mg fentaNYL (pf) (50 mcg/mL) multi-dose injection Intravenous, PRN, Starting on Aura 04/01/23 at 0757, Until Aura 04/01/23 at 1135, Anesthesia Intra-op, Routine Given 04/01/2023 7:57 AM EST 50 mcg Given 04/01/2023 7:50 AM EST 50 mcg isoproterenoL (IsupreL) (4 mcg/mL) in dextrose 5% 250 mL infusion Intravenous, CONTINUOUS PRN, Starting on Aura 04/01/23 at 0910, Until Aura 04/01/23 at 1135, Anesthesia Intra-op Restarted 04/01/2023 10:39 AM EST 4 mcg/min 60 m L/hr Restarted 04/01/2023 10:03 AM EST 4 mcg/min 60 mL/hr Restarted 04/01/2023 9:57 AM EST 4 mcg/min 60 mL/hr lactated ringers infusion 1,000 mL, at 100 mL/hr, Intravenous, CONTINUOUS, Starting on Aura 04/01/23 at 0715, Until Aura 04/01/23 at 1558, Day of Surgery (Day of Procedure) New Bag 04/01/2023 7:39 AM EST ondansetron (pf) (Zofran) (2 mg/mL) injection Intravenous, PRN, Starting on Aura 04/01/23 at 1050, Until Aura 04/01/23 at 1135, Anesthesia Intra-op, Routine Given 04/01/2023 10:50 AM EST 4 mg PHENYLephrine (Shyam-Synephrine) (80 mcg/mL) in sodium chloride 0.9% 250 mL infusion Intravenous, CONTINUOUS PRN, Starting on Aura 04/01/23 at 0818, Until Aura 04/01/23 at 1135, Anesthesia Intra-op, Routine Rate/Dose Change 04/01/2023 10:58 AM EST 15 mcg/min 11.25 mL/hr Rate/Dose Change 04/01/2023 10:30 AM EST 30 mcg/min 22.5 m L/hr Rate/Dose Change 04/01/2023 8:22 AM EST 60 mcg/min 45 mL/h r PHENYLephrine in NS (PF) (SHYAM-SYNEPHRINE) 0.8 mg/10 mL (80 mcg/mL) multi-dose injection Syringe Intravenous, PRN, Starting on Aura 04/01/23 at 0811, Until Aura 04/01/23 at 1135, Anesthesia Intra-op, Routine Given 04/01/2023 8:11 AM EST 80 mcg Given 04/01/2023 8:09 AM EST 80 mcg propofoL (Diprivan) 10 mg/mL bolus injection (Anesthesia) Intravenous, PRN, Starting on Aura 04/01/23 at 0750, Until Aura 04/01/23 at 1135, Anesthesia Intra-op Given 04/01/2023 7:51 AM EST 20 mg Given 04/01/2023 7:50 AM EST 200 mg rocuronium (Zemuron) (10 mg/mL) multi-dose injection Intravenous, PRN, Starting on Aura 04/01/23 at 0750, Until Aura 04/01/23 at 1135, Anesthesia Intra-op, Routine Given 04/01/2023 9:22 AM EST 10 mg Given 04/01/2023 7:50 AM EST 80 mg sugammadex (Bridion) 100 mg/mL injection Intravenous, PRN, Starting on Aura 04/01/23 at 1109, Until Aura 04/01/23 at 1135, Anesthesia Intra-op, Routine Given 04/01/2023 11:09 AM EST 200 mg documented in this encounter Care Teams Laundry Or Dry Cleaners Counter Clerk Relationship Specialty Start Date End Date Polo Pearce PA [address] [place] [address] PCP - General Internal Medicine 06/09/21 documented as of this encounter
--- OUTSIDE RECORDS SUMMARY | 2023-09-20 14:35 | XMS_ITS | Encounter Summary ---
Author Organization [facility] [place] [address] Care Team Providers Care Parking Meter Servicer Name Role Phone Polo Pearce Primary Care Provider [phone] Reason for Visit * Reason Onset Date Comments Follow-up 04/08/2023 Encounter Details Date Type Department Care Team (Late st Contact Info) Description 04/08/2023 Telephone Cardiology at [address] [phone] Mary Motta, RN Follow-up Social History Tobacco Use Types Packs/Day Years Used Date Smoking Tobacco: Never Smokeless Tobacco: Never Alcohol Use Standard Drinks/Week Comments Never 0 (1 standard drink = 0.6 oz pur e alcohol) [facility] Utilities Answer Date Recorded In the past 12 months has e [employer], gas, oil, or water [employer] threatened to shut off services in your [...] slept in a custodial (including now)? No 02/10/2023 Sex and Gender Information Value Date Recorded Sex Assigned at Not on file Gender Identity Not on file Sexual Orientation Not on file documented as of this encounter Miscellaneous Notes * Telephone Encounter - Mary Motta RN - 04/08/2023 5:10 PM EST F/u call to post op call that took place today post SVT ablation with Dr. Tovar last week. Pt listed the following concerns that were outlined in post op note earlier this AM: Pt reports continued chest discomfort post op. [...] discharge,and at no point was she febrile Dr. Tovar was notified & reports that feeling of going into SVT but not is quite common afterablations. He is unsure as to what chest pain & temperature changes are due to, but is reassured that chest discomfort is the same as prior to procedure. Recommended pt continue to monitor herself for any new or worsening symptoms and report to ED if severe symptoms develop. Verbalized understanding & agreeable w/ advisement. documented in this encounter Plan of Treatment Upcoming Encounters Date Type Department Care Team (Late st Contact Info) Description 10/08/2023 8:30 AM EDT Tech Visit Vascular Lab at [place] [phone] Jose Cook 10/08/2023 9:30 AM EDT Office [place] [address] MD [facility] [place] [address] 10/21/2023 10:30 AM EDT Appointment [place] [address] Mary Reyes [facility] [place] [address] 10/21/2023 11:30 AM EDT Appointment Nuclear Medicine at [place] [phone] Mary Reyes [facility] [place] [address] 10/21/2023 12:30 PM EDT Appointment Nuclear Medicine at [place] [phone] Mary Reyes [facility] [place] [address] 10/21/2023 1:30 PM EDT Appointment [place] [phone] Mary Reyes [facility] [place] [address] 10/21/2023 2:30 PM EDT Appointment Nuclear Medicine at [address] Mary Reyes APRN [facility] [place] [address] 10/26/2023 4:00 PM EDT Office Visit Cardiology at [address] [phone] Jaspreet Kinsey MD [facility] [place] [address] 10/28/2023 9:00 AM EDT Office Visit [place] [address] 10/29/2023 10:00 AM EDT Clinical Support [place] [address] 10/29/2023 10:15 AM EDT Procedure visit [place] [address] 11/01/2023 5:00 PM EDT Office Visit Gastroenterology at [address] Selene Browning, PhD [facility] [place] [address] 11/22/2023 4:40 PM EDT Office Visit Cardiology at [place] [phone] Porsha Mcdaniels MD [facility] [place] [address] 12/13/2023 10:00 AM EDT Clinical [place] [phone] [facility] [address] [place] [address] documented as of this encounter Visit Diagnoses Not on filedocumented in this encounter Care Teams Parking Meter Servicer Relationship Specialty Start Date End Date Polo Pearce PA [address] [place] [address] PCP - General Internal Medicine 06/09/21 documented as of this encounter
--- OUTSIDE RECORDS SUMMARY | 2023-09-20 14:35 | XMS_ITS | Encounter Summary ---
Author [place] [address] Care Team Providers Care Bullet Assembly Press Setter Operator Name Role Phone Polo Pearce Primary Care Provider [phone] Encounter Details Date Type Department Care Team (Late st Contact Info) Description 04/16/2023 Ancillary Procedure [place] [address] Social History Tobacco Use Types Packs/Day Years Used Date Smoking Tobacco: Never Smokeless Tobacco: Never Alcohol Use Standard Drinks/Week Comments Never 0 (1 standard drink = 0.6 oz pur e alcohol) [facility] Utilities Answer Date Recorded In [...] in a group home (including now)? No 02/10/2023 IPV Inpatient [...] AM EDT Tech Visit Vascular Lab at [place] [phone] Jose Cook 10/08/2023 9:30 AM EDT Office [place] [phone] MD [facility] [place] [address] 10/21/2023 10:30 AM EDT Appointment [place] [phone] Mary Reyes APRN [facility] GASTROENTEROLOGY [place] [phone] 10/21/2023 11:30 AM EDT Appointment [place] [phone] Mary Reyes APRN [facility] [place] [address] 10/21/2023 12:30 PM EDT Appointment [place] [address] Mary Reyes [facility] [place] [address] 10/21/2023 1:30 PM EDT Appointment [place] [address] Mary Reyes [facility] [place] [address] 10/21/2023 2:30 PM EDT Appointment [place] [address] Mary Reyes [facility] [place] [address] 10/26/2023 4:00 PM EDT Office Visit Cardiology at [address] [phone] Jaspreet Kinsey MD [facility] [place] [address] 10/28/2023 9:00 AM EDT Office [place] [address] 10/29/2023 10:00 AM EDT Clinical [place] [address] 10/29/2023 10:15 AM EDT Procedure [place] [address] 11/01/2023 5:00 PM EDT Office Visit [place] [phone] Selene Browning, PhD [facility] [place] [address] 11/22/2023 4:40 PM EDT Office Visit Cardiology at [address] [phone] Porsha Mcdaniels MD [facility] [place] [address] 12/13/2023 10:00 AM EDT Clinical Support Gastroenterology at [place] [phone] Lucero Romero, RD [facility] [address] [place] [phone] documented as of this encounter Procedures Procedure Name Priority Date/Time Associated Diagnosis Comments FILM LIBRARY STORAGE ONLY CT CHEST Routine 04/16/2023 12:00 AM EST documented in this encounter Results * Film Library- Storage Only CT Chest (04/16/2023 12:00 AM EST) Narrative D[employer], Auditing User - 04/17/2023 3:00 AM EST This exam is auto-finalizing. It's purpose is for storage only. Polo SANDRA Kadi FILM LIBRARY ORD ERABLES documented in this encounter Visit Diagnoses Not on filedocumented in this encounter Care Teams Bullet Assembly Press Setter Operator Relationship Specialty Start Date End Date Polo Pearce PA [address] [place] [address] PCP - General Internal Medicine 06/09/21 documented as of this encounter
--- OUTSIDE RECORDS SUMMARY | 2023-09-20 14:36 | XMS_ITS | Encounter Summary ---
Author Organization [facility] [place] [address] Care Team Providers Care Shoe Stainer Name Role Phone Polo Pearce Primary Care Provider [phone] Reason for Referral * Consultation (Routine) - Closed Specialty Diagnoses / Procedures Referred By Jayant harris Referred To Contact Cardiology Diagnoses Non-ST elevation myocardial infarction (NSTEMI) Itz Bhardwaj MD [facility] [place] [address] Cardiac Rehab, [address] [place] [address] Referral ID Status Reason Start Date Expiration Date V isits Requested Visits Authorized [id number] Closed Consult, Test & Treat Non PCP 02/18/2023 08/17/2023 36 36 Encounter Details Date Type Department Care Team (Late st Contact Info) Description 02/18/2023 Orders [place] [address] Jazmin Levine RN Non-ST elevation myocardial infarction (NSTEMI) Social History Tobacco Use Types Packs/Day Years Used Date Smoking Tobacco: Never Smokeless Tobacco: Never Alcohol Use Standard Drinks/Week Comments Never 0 (1 standard drink = 0.6 oz pur e alcohol) [facility] Utilities Answer Date Recorded In the [...] a group home (including now)? No 02/10/2023 Sex and Gender Information Value Date Recorded Sex Assigned at Not on file Gender Identity Not on file Sexual Orientation Not on file documented as of this encounter Plan of Treatment Upcoming Encounters Date Type Department Care Team (Late st Contact Info) Description 10/08/2023 8:30 AM EDT Tech [place] [address] Jose Cook 10/08/2023 9:30 AM EDT Office [place] [phone] [address] MD [facility] [place] [address] 10/21/2023 10:30 AM EDT Appointment [place] [address] Mary Reyes [facility] [place] [address] 10/21/2023 11:30 AM EDT Appointment [place] [address] Mary Reyes [facility] [place] [address] 10/21/2023 12:30 PM EDT Appointment [place] [address] Mary Reyes [facility] [place] [address] 10/21/2023 1:30 PM EDT Appointment [place] [address] Mary Reyes [facility] [place] [address] 10/21/2023 2:30 PM EDT Appointment [place] [address] Mary Reyes [facility] [place] [address] 10/26/2023 4:00 PM EDT Office Visit Cardiology at [address] [phone] Jaspreet Kinsey MD [facility] [place] [address] 10/28/2023 9:00 AM EDT Office [place] [address] 10/29/2023 10:00 AM EDT Clinical [place] [address] 10/29/2023 10:15 AM EDT Procedure [place] [address] 11/01/2023 5:00 PM EDT Office Visit Gastroenterology at [place] [phone] Selene Browning, PhD [facility] [place] [address] 11/22/2023 4:40 PM EDT Office Visit Cardiology at [place] [phone] Porsha Mcdaniels MD [facility] [address] 12/13/2023 10:00 AM EDT Clinical Support Gastroenterology at [address]1000 Lucero Romero, RD [facility] [place] [address] Scheduled Referrals Name Type Priority Associated Diagnoses Orde r Schedule Referral to Cardiac Rehab Outpatient Referral Routine Non-ST elevation myocardial infarction (NSTEMI) Ordered: 02/18/2023 documented as of this encounter Visit Diagnoses Diagnosis Non-ST elevation myocardial infarction (NSTEMI) Acute myocardial infarction, subendocardial infarction, episode of care unspecified documented in this encounter Care Teams Shoe Stainer Relationship Specialty Start Date End Date Polo Pearce PA [address] [place] [address] PCP - General Internal Medicine 06/09/21 documented as of this encounter
--- OUTSIDE RECORDS SUMMARY | 2023-09-20 14:36 | XMS_ITS | Encounter Summary ---
Author Organization [facility] Address [facility] [place] [address] Care Team Providers Care Web Operations Specialist Name Role Phone Polo Pearce Primary Care Provider [phone] Encounter Details Date Type Department Care Team (Late st Contact Info) Description 02/16/2023 11:20 AM EST Office Visit Cardiology at [address] [place] [address] Jed Tovar MD [facility] [place] [address] PAF (paroxysmal atrial fibrillation); SVT (supraventricular tachycardia) Social History Tobacco Use Types Packs/Day Years Used Date Smoking Tobacco: Never Smokeless Tobacco: Never Alcohol Use Standard Drinks/Week Comments Never 0 (1 standard drink = 0.6 oz pur e alcohol) [facility] Utilities Answer Date Recorded In the past 12 months has [employer], gas, oil, or water [employer] threatened to shut off services in your [...] slept in a alf (including now)? No 02/10/2023 Sex and Gender Information Value Date Recorded Sex Assigned at Not on file Gender Identity Not on file Sexual Orientation Not on file documented as of this encounter Last Filed Vital Signs Vital Sign Reading Time Taken Comments Blood Pressure 106/59 02/16/2023 11:02 AM EST Pulse 55 02/16/2023 11:02 AM EST Temperature - - Respiratory Rate - - Oxygen Saturation 99% 02/16/2023 11:02 AM EST Inhaled Oxygen Concentration - - Weight 98.7 kg (217 lb 8 oz) 02/16/2023 11:02 AM EST Height 162.6 cm (5' 4) 02/16/2023 11:02 AM EST Body Mass Index 37.33 02/16/2023 11:02 AM EST documented in this encounter Progress Notes * Jed Tovar MD - 02/16/2023 11:20 AM EST Images from the original note were not included. Section of Cardiology/Cardiac Electrophysiology Clinical Cardiac Electrophysiology Follow Up Patient ID Indira Roque [id number] Indira Roque is following up in EP clinic C/c: SVT History Ms. Roque is a 52 year old woman who is following up with me re SVT. She met my colleague JOCY Rangel, last year for a discussion of palpitations and SVT. Umberto recommended ablation with me. I spoke with her over the phone immediately prior to her scheduled ablation---at that time she was having chest pain and so the procedure was postponed so her chest pain could be worked up. Since then, she has had several admissions to hospital for chest pain. The thorough workup has ruled out obstructive epicardial coronary artery disease. She is being treated for vasospasm. She reports occasional episodes of tachycardia that she is usually able to terminate with cold to the face or neck massage. She has not needed hospitalization for SVT recently but she has in the past. Her metoprolol has been stopped. She is taking ranolazine at the moment, primarily for her chest pa in. She had atrial fibrillation detected on EKG in October. AF self-terminated while she was on a diltiazem infusion. LVEF is normal. Problem List Patient Active Problem List Diagnosis NSTEMI (non-ST elevated myocardial infarction) Paroxysmal atrial fibrillation 10/20/2022: diagnosed in clinic (see EKG on same date) with c/o chest pain Pulmonary embolus 07/2022: right upper lobe. Started on eliquis 08/2022 TTE ([facility]): normal bi-v s/f. 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 Started on toprol Obesity Dyslipidemia Obstructive sleep apnea syndrome Insomnia (HFpEF) heart failure with preserved ejection fraction 05/2021: subacute, presented to [facility] with RUQ pain, weight gain, and progressive dyspnea. Noted to carry most fluid in abdomen - Multiple echos since then, including 09/2022, without significant finding Restless legs Asthma Review of Systems ROS See above. All other review of systems negative. Meds Current Outpatient Medications Medication Sig Dispense Refill apixaban (Eliquis) 5 mg tablet Take 1 tablet by mouth 2 times daily. 60 tablet 11 ranolazine ER (Ranexa) 500 mg ER 12 hr tablet Take 1 [...] as needed. fluticasone propionate (FLONASE) 50 mcg/actuation [place], Suspension 1 spray by Each Nare route daily. gabapentin (Neurontin) 300 mg Capsule Take 600 mg by mouth nightly. topiramate (TOPAMAX) 50 mg Tablet Take 100 mg by mouth nightly. DULoxetine (CYMBALTA) 60 mg capsule Take 60 mg by mouth daily. albuterol (PROVENTIL HFA;VENTOLIN HFA) 90 mcg/Actuation inhaler Inhale 2 puffs into the lungs every4 hours as needed. Use with spacer No current facility-administered medications for this visit. 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 Lives in [place] [...] Not on file Intimate Partner Violence: Not on file Housing Stability: Low Risk (02/10/2023) Housing Stability Vital Sign Unable to Pay for Housing in the Last Year: No Number of Places Lived in the Last Year: 1 Unstable Housing in the Last Year: No Family History Family History Problem Relation Age of Onset Hypertension Mother Arrhythmia Father Heart Surgery Father Myocardial Infarction Father Coronary Artery Disease Father Exam Patient Vitals for the past 24 hrs: Pulse BP SpO2 02/16/23 1102 55 106/59 99 % @EXAM@ GEN: patient appears well and in no apparent distress, alert and oriented ENT: extraocular movements with full range of motion NECK: normal JVP CHEST: clear to auscultation with no wheeze, rhonchi or rales. Symmetric chest movement COR: S1S2, irregular rhythm, bradycardia. no discernible murmurs, rubs or gallops. ABDOMEN: soft, nontender, nondistended, normal bowel sounds EXTREMITIES: no edema, warm, well perfused NEUROLOGICAL: alert and oriented to person, place and time. CN 2-12 grossly intact. I have personally reviewed the ECG: sinus rhythm at 56 bpm, MA 182 ms. I have personally reviewed all pertinent labs, cardiac rhythm monitors and imaging Impression/Plan Ms. Roque has symptomatic, paroxysmal SVT. Ablation is indicated to prevent future symptoms and to simplify her cardiac situation. Ablation can be done safely for her. The catheter ablation procedure including the risks (bleeding, infection, deep venous thrombosis, pulmonary emboli, hemothorax, pneumothorax, cardiac perforation and tamponade, the potential for inducing complete heart block requiring a permanent pacemaker insertion, and the risk of stroke/RI/deathshould left-sided access be required) were reviewed in detail. The patient was informed that catheter ablation is successful in approximately 95 percent of cases of AVNRT with a slightly lower success rate in cases of atrial tachycardia or orthrodromic reentrant tachycardia. Finally, the use of sedation and the potential for general anesthesia with the additional risks of airway and dental traumawas discussed. All questions were answered. She wants to proceed with ablation. Will schedule. Jed Tovar MD 30 total minutes were spent on this encounter for patient counseling, medical record review, note entry, physical exam, scheduling of procedure Cc: JOCY Franco documented in this encounter Plan of Treatment Upcoming Encounters Date Type Department Care Team (Late st Contact Info) Description 10/08/2023 8:30 AM EDT Tech Visit [place] [address] Jose Cook 10/08/2023 9:30 AM EDT Office [place] [address] MD [facility] [place] [address] 10/21/2023 10:30 AM EDT Appointment Nuclear Medicine at [address]1000 Mary Reyes, [facility] [address] 10/21/2023 11:30 AM EDT Appointment Nuclear Medicine at [address]1000 Mary Reyes [facility] [address] 10/21/2023 12:30 PM EDT Appointment [place] [address] Mary Reyes [facility] [address] 10/21/2023 1:30 PM EDT Appointment [place] [address] Mary Reyes [facility] [address] 10/21/2023 2:30 PM EDT Appointment [place] [address] Mary Reyes [facility] [place] [address] 10/26/2023 4:00 PM EDT Office Visit Cardiology at [address] [place] [address] Jaspreet Kinsey MD [facility] [place] [address] 10/28/2023 9:00 AM EDT Office [place] [address] 10/29/2023 10:00 AM EDT Clinical [place] [address] 10/29/2023 10:15 AM EDT Procedure [place] [address] 11/01/2023 5:00 PM EDT Office [place] [phone] Selene Browning, PhD [facility] [place] [address] 11/22/2023 4:40 PM EDT Office Visit Cardiology at [address] [phone] Porsha Mcdaniels MD [facility] [place] [address] 12/13/2023 10:00 AM EDT Clinical [place] [address] [facility] [place] [address] Scheduled Orders Name Type Priority Associated Diagnoses Orde r Schedule EKG 12 Lead ECG Routine PAF (paroxysmal atrial fibrillation) Expected: 02/16/2023, Expires: 08/18/2023 documented as of this encounter Procedures Procedure Name Priority Date/Time Associated Diagnosis Comments EKG 12-LEAD Routine 02/16/2023 11:37 AM EST documented in this encounter Results * EKG 12 Lead (02/16/2023 11:37 AM EST) Ventricular rate 56 BPM MUSE SYSTEM Atrial Rate 56 BPM MUSE SYSTEM P-R Interval 182 ms MUSE SYSTEM QRS Duration 88 ms MUSE SYSTEM Q-T Interval 530 ms MUSE SYSTEM QTC Calculated (Bezet) 511 ms MUSE SYSTEM Calculated P [place] 24 degrees MUSE SYSTEM Calculated R [place] 35 degrees MUSE SYSTEM Calculated T [place] 14 degrees MUSE SYSTEM INTERPRETATION Sinus bradycardia Possible Lateral infarct (cited on or before 08-FEB-2023) Prolonged QT Abnormal ECG When compared with ECG of 11-FEB-2023 06:07, QT has lengthened Confirmed by MD Hans, Porsha ([id number]) on 02/16/2023 2:07:10 PM MUSE SYSTEM 02/16/2023 11:3 7 AM EST 02/16/2023 2:07 PM EST Unknown ECG ORDERABLES MUSE SYSTEM documented in this encounter Visit Diagnoses Diagnosis PAF (paroxysmal atrial fibrillation) Atrial fibrillation SVT (supraventricular tachycardia) Other specified cardiac dysrhythmias documented in this encounter Care Teams Web Operations Specialist Relationship Specialty Start Date End Date Polo Pearce PA [address] [place] [address] PCP - General Internal Medicine 06/09/21 documented as of this encounter
--- OUTSIDE RECORDS SUMMARY | 2023-09-20 14:36 | XMS_ITS | Encounter Summary ---
Author Organization [facility] Address [facility] [place] [address] Care Team Providers Care Claims Vice President Name Role Phone Polo Pearce Primary Care Provider [phone] Reason for Visit * Reason Comments Palpitations SVT Encounter Details Date Type Department Care Team (Late st Contact Info) Description 03/22/2023 4:20 PM EST Office Visit Cardiology at [address] [phone] Jaspreet Kinsey MD [facility] [place] [address] SVT (supraventricular tachycardia); Pulmonary embolism without acute cor pulmonale, unspecified chronicity, unspecified pulmonary embolism type; Paroxysmal atrial fibrillation; Heart failure with preserved ejection fraction, unspecified HF chronicity Social History Tobacco Use Types Packs/Day Years Used Date Smoking Tobacco: Never Smokeless Tobacco: Never Alcohol Use Standard Drinks/Week Comments Never 0 (1 standard drink = 0.6 oz pur e alcohol) [facility] Utilities Answer Date Recorded In the past 12 months has [employer] electric, gas, oil, or water [employer] threatened to shut off services in your [...] Sign Reading Time Taken Comments Blood Pressure 116/57 03/22/2023 4:41 PM EST Pulse 52 03/22/2023 4:41 PM EST per e cg Temperature - - Respiratory Rate - - Oxygen Saturation - - Inhaled Oxygen Concentration - - Weight 98.4 kg (217 lb) 03/22/2023 4:41 PM EST Height 162.6 cm (5' 4) 03/22/2023 4:41 PM EST Body Mass Index 37.25 03/22/2023 4:41 PM EST documented in this encounter Progress Notes * Jaspreet Kinsey MD - 03/22/2023 4:20 PM EST Images from the original note were not included. Subjective: Patient ID: Indira Roque is a 53 y.o. female who presents on follow-up for: Chief Complaint Patient presents with Palpitations SVT HPI Last seen by me 11/2022, at which time no changes were made Intercurrently, patient had an episode of CP and elevated biomarker in early February; she was transferred to [facility]. At that interface, amlodipine was discontinued due to mild peripheral edema, and bumex was changed to torsemide ( the latter for unclear reason). Ranexa was also initiated, as was aldactone; the latter to preserve eukalemia. The former was discontinued due to fogginess/dizziness, with quick resolution of symptoms. Since then, she has been doing well. She has been participating in cardiac rehab at [facility] and finds herself making gains in exertional capacity. Finds using her legs most (such as on the bike) is whatprovokes a functional in crease in HR. Bp well controlled No bleeding on eliquis Has been finding an increase in tachypalpitations sugey to historic SVT. Last a few mintues and dissipate with relaxation- no abortive maneuvers. Current Outpatient Medications Medication Instructions albuterol (PROVENTIL HFA;VENTOLIN HFA) 90 mcg/Actuation inhaler 2 puffs, Inhalation, EVERY 4 HOURS PRN, Use with spacer apixaban (ELIQUIS) 5 mg, Oral, 2 TIMES DAILY atorvastatin (LIPITOR) 80 mg, Oral, EVERY EVENING DULoxetine DR (CYMBALTA) 60 mg, DAILY empagliflozin (JARDIANCE) 10 mg, Oral, DAILY erenumab-aooe (Aimovig Autoinjector) 70 mg/mL Auto-Injector Subcutaneous, EVERY 30 DAYS fluticasone propionate (FLONASE) 50 mcg/actuation [place], Suspension 1 spray, Each Nare, DAILY gabapentin (NEURONTIN) 600 mg, Oral, NIGHTLY loratadine (CLARITIN) 10 mg, Oral, DAILY PRN melatonin 10 mg, Oral, NIGHTLY PRN omeprazole (PRILOSEC) 20 mg, Oral, ONCE PRN, Infrequent use prochlorperazine (COMPAZINE) 5 mg, Oral, EVERY 6 HOURS PRN rOPINIRole (REQUIP) 2 mg, Oral, 2 TIMES DAILY spironolactone (ALDACTONE) 25 mg, Oral, DAILY topiramate (TOPAMAX) 100 mg, Oral, NIGHTLY torsemide (DEMADEX) 20 mg, Oral, DAILY Patient Active Problem List Diagnosis Paroxysmal atrial fibrillation 10/20/2022: diagnosed in clinic (see EKG on same date) with c/o chest pain Pulmonary embolus 07/2022: right upper lobe. Started on eliquis 08/2022 TTE ([facility]): normal bi-v s/f. No significant VHD (HFpEF) heart failure with preserved ejection fraction 05/2021: subacute, presented to [facility] with RUQ pain, weight gain, and progressive dyspnea. 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 Started on toprol Obesity Dyslipidemia Obstructive sleep apnea syndrome Insomnia Restless legs Asthma Objective: BP 116/57 (BP Location (NBP): Left arm, Patient Position: Sitting, BP Cuff Sizes: Large Adult (32-43 cm)) Pulse 52 Comment: per ecg Ht 162.6 cm (5' 4) Wt 98.4 kg (217 lb) BMI 37.25 kg/m?? Gen: pleasant female in NAD Cor: rrr, s1/s2 of nl character and amplitude, no pathologic m/r/g. Estimated RAP not elevated. Carotids with normal upstroke without bruit. Pulm: CTAB. Normal diaphragmatic movement without use of accessory muscles EKG: sb via 1* AVNB 52, nssttw Assessment and Plan: SVT (supraventricular tachycardia) I posit this is what is underlying many of the chest pain issues. She is excited for upcoming ablation Pulmonary embolus No issues - eliquis 5 bid. This can be held for ablation 2 days prior and restarted as per EP guidance Paroxysmal atrial fibrillation Remains in NSR - Strategy: paroxysmal rate. Continue not on avnb - OAC: eliquis 5 bid (this is more so for history of PE) - Reversible Causes: obesity (HFpEF) heart failure with preserved ejection fraction No failure by history nor exam - torsemide 20 QD - Jardiance 10 - aldactone 25 RTC 6 months Jaspreet Kinsey MD documented in this encounter Miscellaneous Notes * Assessment & Plan Note - Jaspreet Kinsey MD - 03/22/2023 4:58 PM EST Associated Problem(s): (HFpEF) heart failure with preserved ejection fraction No failure by history nor exam - torsemide 20 QD - Jardiance 10 - aldactone 25 * Assessment & Plan Note - Jaspreet Kinsey MD - 03/22/2023 4:58 PM EST Associated Problem(s): Paroxysmal atrial fibrillation Remains in NSR - Strategy: paroxysmal rate. Continue not on avnb - OAC: eliquis 5 bid (this is more so for history of PE) - Reversible Causes: obesity * Assessment & Plan Note - Jaspreet Kinsey MD - 03/22/2023 4:58 PM EST Associated Problem(s): Pulmonary embolus (Resolved 05/10/2023) No issues - eliquis 5 bid. This can be held for ablation 2 days prior and restarted as per EP guidance * Assessment & Plan Note - Jaspreet Kinsey MD - 03/22/2023 4:57 PM EST Associated Problem(s): SVT (supraventricular tachycardia) I posit this is what is underlying many of the chest pain issues. She is excited for upcoming ablation documented in this encounter Plan of Treatment Upcoming Encounters Date Type Department Care Team (Late st Contact Info) Description 10/08/2023 8:30 AM EDT Tech Visit [place] [phone] Jose Cook 10/08/2023 9:30 AM EDT Office [place] [phone] MD [facility] [place] [place] [address] 10/21/2023 10:30 AM EDT Appointment [place] [address] Mary Reyes [facility] [place] [address] 10/21/2023 11:30 AM EDT Appointment Nuclear Medicine at [place] [phone] Mary Reyes [facility] [place] [address] 10/21/2023 12:30 PM EDT Appointment Nuclear Medicine at [address] Mary Reyes [facility] [place] [address] 10/21/2023 1:30 PM EDT Appointment [place] [address] Mary Reyes [facility] [place] [address] 10/21/2023 2:30 PM EDT Appointment [place] [address] Mary Reyes [facility] [place] [address] 10/26/2023 4:00 PM EDT Office Visit Cardiology at [address] [phone] Jaspreet Kinsey MD [facility] [place] [address] 10/28/2023 9:00 AM EDT Office [place] [address] 10/29/2023 10:00 AM EDT Clinical [place] [address] 10/29/2023 10:15 AM EDT Procedure [place] [address] 11/01/2023 5:00 PM EDT Office Visit Gastroenterology at [place] [phone] Selene Browning, PhD [facility] [place] [address] 11/22/2023 4:40 PM EDT Office Visit Cardiology at [address] [phone] Porsha Mcdaniels MD [facility] [place] [address] 12/13/2023 10:00 AM EDT Clinical [place] [address] Lucero Romero, RD [facility] [place] [address] documented as of this encounter Visit Diagnoses Diagnosis SVT (supraventricular tachycardia) Other specified cardiac dysrhythmias Pulmonary embolism without acute cor pulmonale, unspecified chronicity, unspecified pulmonary embolism type Paroxysmal atrial fibrillation Atrial fibrillation Heart failure with preserved ejection fraction, unspecified HF chronicity documented in this encounter Care Teams Claims Vice President Relationship Specialty Start Date End Date Polo Pearce PA [address] [place] [id number] PCP - General Internal Medicine 06/09/21 documented as of this encounter
--- OUTSIDE RECORDS SUMMARY | 2023-09-20 14:36 | XMS_ITS | Encounter Summary ---
[place] [address] Care Team Providers Care Etcher Aircraft Name Role Phone Polo Pearce Primary Care Provider [phone] Encounter Details Date Type Department Care Team (Late st Contact Info) Description 02/08/2023 [place] [phone] Unknown None Social History Tobacco Use Types Packs/Day Years Used Date Smoking Tobacco: Never Smokeless Tobacco: Never Alcohol Use Standard Drinks/Week Comments Never 0 (1 standard drink = 0.6 oz pur e alcohol) [facility] Utilities Answer Date Recorded In the past [...] [place] [facility] [place] No 02/10/2023 Sex and Gender Information Value Date Recorded Sex Assigned at Not on file Gender Identity Not on file Sexual Orientation Not on file documented as of this encounter Plan of Treatment Upcoming Encounters Date Type Department Care Team (Late st Contact Info) Description 10/08/2023 8:30 AM EDT Tech [place] [phone] Jose Cook 10/08/2023 9:30 AM EDT Office [place] [phone] MD [facility] [place] [place] [address] 10/21/2023 10:30 AM EDT Appointment [place] [phone] Mary Reyes APRN [facility] [place] [address] 10/21/2023 11:30 AM EDT Appointment [place] [phone] Mary Reyes APRN [facility] [place] [address] 10/21/2023 12:30 PM EDT Appointment [place] [phone] Mary Reyes APRN [facility] [place] [address] 10/21/2023 1:30 PM EDT Appointment [place] [address] Mary Reyes [facility] [address] 10/21/2023 2:30 PM EDT Appointment [place] [address] Mary Reyes, [facility] [address] 10/26/2023 4:00 PM EDT Office Visit Cardiology at [address] [phone] Jaspreet Kinsey MD [facility] [place] [address] 10/28/2023 9:00 AM EDT Office [place] [address] 10/29/2023 10:00 AM EDT Clinical [place] [address] 10/29/2023 10:15 AM EDT Procedure [place] [address] 11/01/2023 5:00 PM EDT Office [place] [phone] Selene Browning, PhD [facility] [address] [place] [address] 11/22/2023 4:40 PM EDT Office Visit Cardiology at [address] [phone] Porsha Mcdaniels MD [facility] [place] [address] 12/13/2023 10:00 AM EDT Clinical [place] [phone] Lucero Romero RD [facility] [place] [address] documented as of this encounter Procedures Procedure Name Priority Date/Time Associated Diagnosis Comments ECHOCARDIOGRAM TRANSTHORACIC Routine 02/08/2023 11:40 PM EST documented in this encounter Results * Echocardiogram Transthoracic (02/08/2023 11:40 PM EST) Anatomical Region Laterality Modality Cardiac Other 02/08/2023 11:4 0 PM EST Narrative 02/10/2023 3:09 PM EST [address] [place] [address] ? Echocardiogram Report Name: LOIDA ROQUE ?Study Date: 02/08/2023 11:40 PM : 1970 Age: 52 yrs Gender: Female Performed By: Vaishnavi Pratt MD Reason For Study: Chest pain Interpreting Fellow: Vaishnavi Pratt. Interpretation Summary -This is a sub-optimal fellow-performed TTE overnight to evaluate for possible pericardial effusion. Technically limited study, without apical or subcostal views. -Left ventricular systolic function is likely normal. Left ventricular ejection fraction is estimated visually at 55%. -The left atrium is severely dilated. -There is no valve disease. -There is a pericardial fat pad seen without a pericardial effusion. Procedure Limited - 86306. Suboptimal quality. There is normal sinus rhythm. Left Ventricle The left ventricle is not well visualized. Global left ventricular systolic function is probably normal. Unable to assess regional wall motion due to technically limited images. Right Ventricle The right ventricle is probably normal in size. Left Atrium The left atrium is severely dilated. Right Atrium The right atrium is not well visualized. Aortic Valve The aortic valve is probably trileaflet. There is no aortic stenosis. There is no aortic regurgitation. Mitral Valve The mitral valve is structurally and functionally normal. Tricuspid Valve The tricuspid valve is not well visualized. Pulmonic Valve The pulmonic valve is not well visualized. Pericardium/Pleural A pericardial fat pad is present. There is no pericardial effusion. ? 2D Measurements ?IVSd: 0.80 cm ?LVIDd: 5.6 cm ?LVPWd: 0.89 cm ?LV mass(C)d: 175.9 grams Doppler TR max sierra: 93.8 cm/sec I ?WMSI = 1.00 ? % Normal = 100 ?Segments ??Size X - Cannot ?2 - ?4 - ?1-2 ? small Interpret ?1 - Normal ?? Hypokinetic 3 - Akinetic Dyskinetic ?? 3-5 ? moderate 5 - ? 6-14 ?large Aneurysmal ?15-16 ?? diffuse Procedure Note Willy Gómez MD - 02/10/2023 [address] [place] [address] Echocardiogram Report Name: LOIDA ROQUE Study Date: 02/08/2023 11:40PM : 1970 Age: 52 yrs Gender: Female Performed By: Vaishnavi Pratt MD Reason For Study: Chest pain Interpreting Fellow: Vaishnavi Pratt. Interpretation Summary -This is a sub-optimal fellow-performed TTE overnight to evaluate forpossible pericardial effusion. Technically limited study, without apical orsubcostal views. -Left ventricular systolic function is likely normal. Left ventricularejection fraction is estimated visually at 55%. -The left atrium is severely dilated. -There is no valve disease. -There is a pericardial fat pad seen without a pericardial effusion. Procedure Limited - 83429. Suboptimal quality. There is normal sinus rhythm. Left Ventricle The left ventricle is not well visualized. Global left ventricularsystolic function is probably normal. Unable to assess regional wall motion dueto technically limited images. Right Ventricle The right ventricle is probably normal in size. Left Atrium The left atrium is severely dilated. Right Atrium The right atrium is not well visualized. Aortic Valve The aortic valve is probably trileaflet. There is no aortic stenosis.There is no aortic regurgitation. Mitral Valve The mitral valve is structurally and functionally normal. Tricuspid Valve The tricuspid valve is not well visualized. Pulmonic Valve The pulmonic valve is not well visualized. Pericardium/Pleural A pericardial fat pad is present. There is no pericardial effusion. 2D Measurements IVSd: 0.80 cm LVIDd: 5.6 cm LVPWd: 0.89 cm LV mass(C)d: 175.9 grams Doppler TR max sierra: 93.8 cm/sec I WMSI = 1.00 % Normal = 100 SegmentsSize X - Cannot 2 - 4 - 1-2small Interpret 1 - Normal Hypokinetic 3 - Akinetic Dyskinetic 3-5moderate 5 - 6-14large Aneurysmal 15-16diffuse Unknown ECHO ORDERABLES documented in this encounter Visit Diagnoses Not on filedocumented in this encounter Care Teams Etcher Aircraft Relationship Specialty Start Date End Date Polo Pearce PA [address] [place] [address] PCP - General Internal Medicine 06/09/21 documented as of this encounter
--- OUTSIDE RECORDS SUMMARY | 2023-09-20 14:36 | XMS_ITS | Encounter Summary ---
Author Organization [facility] [place] [address] Care Team Providers Care Boat Ride Operator Name Role Phone Polo Pearce Primary Care Provider [phone] Reason for Visit * Auth/Cert (Routine) Specialty [...] THER/DX INTERVENT ELECTROPHYSIOLOGY PROCEDURE Jed Tovar MD [facility] [place] [address] [facility] Referral ID Status Reason Start Date Expiration Date Visits Re quested Visits Authorized [id number] 1 1 Encounter Details Date Type Department Care Team (Latest Contact Info) Description 04/01/2023 6:20 AM EST - 04/01/2023 4:00 PM EST Hospital [place] [address] Jed Tovar MD [facility] [place] [address] SVT (supraventricular tachycardia); PAF (paroxysmal atrial fibrillation) Discharge Disposition: Home Social History Tobacco Use Types Packs/Day Years Used Date Smoking Tobacco: Never Smokeless Tobacco: Never Alcohol Use Standard Drinks/Week Comments Never 0 (1 standard drink = 0.6 oz pur e alcohol) [facility] Utilities Answer Date Recorded In [...] in a care home (including now)? No 02/10/2023 Sex and Gender Information Value Date Recorded Sex Assigned at Not on file Gender Identity Not on file Sexual Orientation Not on file documented as of this encounter Last Filed Vital Signs Vital Sign Reading Time Taken Comments Blood Pressure 104/62 04/01/2023 3:41 PM EST Pulse 68 04/01/2023 1:55 PM EST Temperature 36.7 ??C (98.1 ??F) 04/01/2023 1:55 PM ES T Respiratory Rate 16 04/01/2023 3:41 PM EST Oxygen Saturation 96% 04/01/2023 3:41 PM EST Inhaled Oxygen Concentration - - [...] Indira Roque Patient Age: 53 y.o. Language: Peruvian Race: White Ethnicity: Not nor Admit date: [...] Cardiac Electrophysiology - Weekends and holidays call [phone]; ask for clinical medical assistant it web development consultant. Discharge Diagnoses (Hospital Problems) and Secondary Diagnoses [...] 06/13/2021 in the context of hospitalization at [facility] for NSTEMI. A rapidly conducted narrow [...] days. Refills: 0 fluticasone propionate 50 mcg/actuation [place], Suspension Commonly known as: Flonase 1 spray [...] 3:00 PM Jaspreet Kinsey MD Cardiology at [place] Arrive at: [facility] [address] [phone] Discharge References/Attachments None documented in this encounter [...] as needed. fluticasone propionate (FLONASE) 50 mcg/actuation [place], Suspension 1 spray by Each Nare route [...] PRE-PROCEDURE H&P Referring Provider: Jaspreet Kinsey MD [facility] [place] [address] Attending Provider: Jed Tovar MD Planned Procedure: EP study and SVT ablation Background and rationale for the procedure: Indira Roque is a 53 y.o. woman with paroxysmal atrial fibrillation, heart failure with preserved EF, and chronic angina with non-obstructive ASCVD but significant calcifications per coronary CTA. She has documented sustained narrow complex tachycardia on 06/13/2021 in the context of hospitalization at [facility] for NSTEMI. A rapidly conducted narrow [...] as needed. fluticasone propionate (FLONASE) 50 mcg/actuation [place], Suspension 1 spray by Each Nare route [...] in agreement. Dr. Jed Tovar, electrophysiology attending ([id number]) documented in this encounter Procedure Notes * [...] jittery Break coverage by Luiza Peña RN [phone]. PACU D/C criteria met at 1300 1345 Hand off to ERWIN Gomez SDP documented in this encounter Miscellaneous Notes * Brief Op Note - Jed Tovar MD - 04/01/2023 11:07 AM EST Brief Operative Note Patient Name: Indira Roque : [id number] MR#: [id number] Case Date: 04/01/2023 Surgeon: Surgeon(s) and Role: [...] AM EDT Tech Visit Vascular Lab at [place] [phone] Jose Cook 10/08/2023 9:30 AM EDT Office Visit Vascular Surgery at [place] [phone] MD [facility] [place] [address] 10/21/2023 10:30 AM EDT Appointment Nuclear Medicine at [place] [phone] Mary Reyes BULLET CHARGING MACHINE OPERATOR [facility] [place] [address] 10/21/2023 11:30 AM EDT Appointment [place] [address] Mary Reyes BULLET CHARGING MACHINE OPERATOR [facility] [place] [address] 10/21/2023 12:30 PM EDT Appointment [place] [address] Mary Reyes [facility] [place] [address] 10/21/2023 1:30 PM EDT Appointment [place] [address] Mary Reyes [facility] [place] [address] 10/21/2023 2:30 PM EDT Appointment [place] [address] Mary Reyes, [facility] [place] [address] 10/26/2023 4:00 PM EDT Office Visit Cardiology at [address] [phone] Jaspreet Kinsey MD [facility] [place] [address] 10/28/2023 9:00 AM EDT Office [place] [address] 10/29/2023 10:00 AM EDT Clinical [place] [address] 10/29/2023 10:15 AM EDT Procedure [place] [address] 11/01/2023 5:00 PM EDT Office [place] [phone] Selene Browning, PhD [facility] [place] [address] 11/22/2023 4:40 PM EDT Office Visit Cardiology at [address] [phone] Porsha Mcdaniels MD [facility] [place] [address] 12/13/2023 10:00 AM EDT Clinical [place] [address] [facility] [place] [address] documented as of this encounter Procedures Procedure [...] (Bezet) 519 ms MUSE SYSTEM Calculated P [place] 44 degrees MUSE SYSTEM Calculated R [place] 41 degrees MUSE SYSTEM Calculated T [place] 36 degrees MUSE SYSTEM INTERPRETATION Normal sinus rhythm Possible Left atrial enlargement Nonspecific ST and T wave abnormality Prolonged QT Abnormal ECG When compared with ECG of 01-APR-2023 07:31, (unconfirmed) Nonspecific T wave abnormality now evident in Anterior leads Confirmed by MD NAILA, KAUSHIK ([id number]) on 04/01/2023 1:23:14 PM MUSE SYSTEM 04/01/2023 12:2 8 PM EST 04/01/2023 1:23 PM EST Jed Tovar MD ECG ORDERABLES MUSE SYSTEM * ELECTROPHYSIOLOGY PROCEDURE (04/01/2023 8:05 AM EST) Anatomical Region Laterality Modality Other Narrative 04/03/2023 11:13 AM EST Table formatting from the original result was not included. Images from the original result were not included. ELECTROPHYSIOLOGY STUDY AND SVT ABLATION Coal Weigher: Jed Tovar MD Fellow: Jaspreet Grimm MD Referring: Jaspreet Kinsey MD Patient History: Indira Roque is a 53 y.o. woman with one episode of paroxysmal atrial fibrillation, heart failure with preserved EF, and chronic angina with non-obstructive ASCVD but significant calcifications per coronary CTA. She has documented sustained narrow complex tachycardia on 06/13/2021 in the context of hospitalization at [facility] for NSTEMI. A rapidly conducted narrow [...] Intervals (ms) Interval Name Interval length (milliseconds) KS 260 QRS 97 QT 531 AH 159 HV 47 Refractory Periods Atrial ERP 700/300 AV Makayla Conduction AV Wenckebach 360 ms Retrograde Wenckebach 470 ms Medication Summary (drug, amount, route) Isoproterenol at 2-4 mcg/kg/min Radiology Summary Total Fluoro time (min) 1.4 DAP (cGycm2) 53 Findings: 1. The baseline EKG revealed sinus rhythm with prolonged KS and long AH, but otherwise normal intervals [...] with Dr. Tovar in 1-3 ??months at [facility] 5. 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 Procedures performed: SVT ablation (cpt 47663); induce post IV drug (cpt 04922-27-94) I have read, edited and approve of [...] (Bezet) 522 ms MUSE SYSTEM Calculated P [place] 50 degrees MUSE SYSTEM Calculated R [place] 69 degrees MUSE SYSTEM Calculated T [place] 16 degrees MUSE SYSTEM INTERPRETATION Sinus bradycardia Lateral infarct , age undetermined Prolonged QT Abnormal ECG When compared with ECG of 22-MAR-2023 16:45, (unconfirmed) T wave inversion no longer evident in Anterior leads QT has lengthened I personally reviewed the tracing and edited the fellows interpretation Confirmed by fellow MD Nas, Max ([id number]) on 04/01/2023 3:35:42 PM Confirmed by MD NAILA, KAUSHIK () on 04/02/2023 8:28:26 AM MUSE SYSTEM 04/01/2023 7:31 AM EST 04/02/2023 8:28 AM EST Jed Tovar MD ECG ORDERABLES MUSE SYSTEM * Differential, Automated (04/01/2023 7:20 AM EST) Pathologist [facility] Neutrophils % 53.2 % [facility] Neutr Abs (ANC) 3.51 1.70 - 6.10 x10(3)/[facility] Lymphocytes % 32.4 % [facility] Lymphocytes Abs 2.1 0.9 - 3.2 x10(3)/[facility] Monocytes % 8.7 % [facility] Monocyte Abs 0.6 0.3 - 0.9 x10(3)/[facility] Eosinophils % 4.6 % [facility] Eosinophils Abs 0.3 0.0 - 0.4 x10(3)/[facility] Basophils % 0.8 % [facility] Basophils Abs 0.0 0.0 - 0.1 x10(3)/[facility] Immature Gran % 0.30 % [facility] Comment: Immature granulocytes(IG's)percentage and absolute count will include metamyelocytes, myelocytes, and promyelocytes. Blood smears from CBCs yielding IG's will be scanned manually for concordance. If this scan disagrees with the automated IG or if promyelocytes are noted, a manual differential will be performed. Shonda Gran Abs 0.02 0.00 - 0.04 x10(3)/[facility] Blood 04/01/2023 7:20 AM EST 04/01/2023 7:33 AM EST Narrative Resulting Agency Comment Spec In Lab Jed Tovar MD HEMATOLOGY ORDERABLE S [facility] [place] [address] * (ABNORMAL) Hemogram (04/01/2023 7:20 AM EST) WBC 6.6 4.0 - 9.5 x10(3)/[facility] RBC 4.56 4.00 - 5.21 x10(6)/[facility] Hemoglobin 14.1 11.7 - 15.5 g/dL [facility] Hematocrit 43.1 35.7 - 45.8 % [facility] MCV 94.5(H) 82.6 - 94.4 fL [facility] MCH 30.9 27.1 - 32.0 pg [facility] MCHC 32.7 31.7 - 35.0 g/dL [facility] Platelets 229 145 - 357 x10(3)/[facility] RDWSD 44.7 37.0 - 46.0 fL [facility] RDWCV 12.7 11.5 - 14.1 % [facility] MPV 11.7 7.6 - 12.9 fL [facility] nRBC % Auto 0.0 % [facility] nRBC Abs Auto 0.000 0.000 - 0.000 x10(3)/mcL [facility] Blood 04/01/2023 7:20 AM EST 04/01/2023 7:33 AM EST Narrative Resulting Agency Comment Spec In Lab Jed Tovar MD HEMATOLOGY ORDERABLE S [facility] [place] [address] * (ABNORMAL) BMP w/fasting Glucose (04/01/2023 7:20 AM EST) Glucose Fasting 99 65 - 99 mg/dL [facility] Comment: ?Fasting* Glucose Interpretive Criteria Normal [...] of Diabetes Mellitus, Position Statement from the [place] [employer]. ??Diabetes Care, Volume 33, Supplement 1, Mar 2009 BUN 22(H) 8 - 18 mg/dL [facility] Creatinine 1.10 0.70 - 1.20 mg/dL [facility] Sodium 139 135 - 145 mmol/L [facility] Potassium 4.2 3.5 - 5.0 mmol/L [facility] Comment: Please note: ??Patients with WBC >100,000 may have falsely elevated Potassium levels. ??For accurate Potassium quantification in these patients send serum separator tube (gold top) for subsequent determinations. ??Contact the Clinical Chemistry Laboratory if there are any questions. Chloride 108(H) 98 - 107 mmol/L [facility] CO2 22 22 - 31 mmol/L [facility] Anion Gap 9 5 - 15 mmol/L [facility] Calcium 9.6 8.5 - 10.5 mg/dL [facility] Estimated GFR 60 >=60 mL/min/1. 73 m?? [facility] Comment: This patient's estimated [...] In Lab Jed Tovar MD CHEMISTRY ORDERABLES [facility] [place] [address] documented in this encounter Visit Diagnoses Diagnosis [...] EVERY 5 MIN PRN, Starting on Aura 24 at 1112, Until Aura 124 at 1558, Pain, Moderate to severe pain (6-10 out of 10), Hold for respiratory rate less than 10 per minute. Maximum dose 200 mcg over one hour, including OR administration. If ordered with HYDROmorphone or morphine, give HYDROmorphone or morphine first and use fentaNYL for breakthrough pain., PACU Recovery, Routine documented in this encounter Care Teams Boat Ride Operator Relationship Specialty Start Date End Date Polo Pearce PA [address] [place] [address] PCP - General Internal Medicine 06/09/21 documented as of this encounter
--- OUTSIDE RECORDS SUMMARY | 2023-09-20 14:36 | XMS_ITS | Encounter Summary ---
Author Organization [facility] [place] [address] Care Team Providers Care Activity Therapy Teacher Name Role Phone Polo Pearce Primary Care Provider [phone] Reason for Visit * Reason Onset Date Comments Pre Procedure Call 03/16/2023 Encounter Details Date Type Department Care Team (Late st Contact Info) Description 03/16/2023 Telephone Cardiology at [address] [phone] Mary Motta, RN Pre Procedure Call Social History Tobacco Use Types Packs/Day Years Used Date Smoking Tobacco: Never Smokeless Tobacco: Never Alcohol Use Standard Drinks/Week Comments Never 0 (1 standard drink = 0.6 oz pur e alcohol) [facility] Utilities Answer Date Recorded In the past 12 months has e baseclick, gas, oil, or water [employer] threatened to shut off services in your [...] slept in a snf (including now)? No 02/10/2023 Sex and Gender Information Value Date Recorded Sex Assigned at Not on file Gender Identity Not on file Sexual Orientation Not on file documented as of this encounter Miscellaneous Notes * Telephone Encounter - Mary Motta RN - 03/16/2023 12:32 PM ESTSummary: Pre Procedure Call: SVT Ablation EP DIRECTOR OF INSTITUTIONAL RESEARCH COORDINATION CHECKLIST Patient Name: Indira Roque Patient Performing Team Leader: Jed Tovar Referring Provider: Jaspreet Kinsey Date of Procedure: 04/01/23 Arrival Time/ Case Time: 6:00 am / 7:30 am Check In Location: Student Admissions Clerk Desk 4W Date Patient was Called: 04/01/23 Procedure: SVT Ablation Company: [email or web address] Type: RF Orders: Yes Lab Orders: Yes Anesthesia: GA Discharge Plan/Disposition: OVERNIGHT/SSU (may go home same day) Med Instructions: DIURETIC - hold spironolactone & torsemide the AM of procedure OTHER - stop Jardiance & Ranexa (ranolazine) beginning 3 days prior to procedure (no doses from 03/29-04/01) Anticoag Type: Eliquis (apixaban) Anticoag Instructions: Hold Eliquis for 3 days prior to procedure (no doses from 03/29 - 04/01) Imaging: N/A Contrast Allergy: N/A DM: N/A Coming from an assisted living facility?: No Any recent S/S of infection (fevers, on oral ABX)?: No Other Instructions: Clear liquids (water, apple juice, radha annita) OK up until 2 hrs prior to procedure, nothing to eatafter midnight on day of procedure.Same Day will call 03/31. If applicable will bring CPAP from home. Will be staying overnight , understands that they will need speedboat driver on day of discharge Notified pt that Esqueda catheter may be placed on day of procedure depending on type & duration of case. documented in this encounter Plan of Treatment Upcoming Encounters Date Type Department Care Team (Late st Contact Info) Description 10/08/2023 8:30 AM EDT Tech Visit [place] [phone] Jose Cook 10/08/2023 9:30 AM EDT Office Visit [place] [phone] MD [facility] [place] [address] 10/21/2023 10:30 AM EDT Appointment [place] [phone] Mary Reyes [facility] [place] [address] 10/21/2023 11:30 AM EDT Appointment [place] [phone] Mary Reyes [facility] [place] [address] 10/21/2023 12:30 PM EDT Appointment [place] [phone] Mary Reyes [facility] [place] [address] 10/21/2023 1:30 PM EDT Appointment Nuclear [place] [address] Mary Reyes APRN [facility] [place] [address] 10/21/2023 2:30 PM EDT Appointment Nuclear Medicine at [place] [phone] Mary Reyes APRN [facility] [address] 10/26/2023 4:00 PM EDT Office Visit Cardiology at [address] [phone] Jaspreet Kinsey MD [facility] [place] [address] 10/28/2023 9:00 AM EDT Office [place] [address] 10/29/2023 10:00 AM EDT Clinical [place] [address] 10/29/2023 10:15 AM EDT Procedure [place] [address] 11/01/2023 5:00 PM EDT Office Visit Gastroenterology at [place] [phone] Selene Browning, PhD [facility] [place] [address] 11/22/2023 4:40 PM EDT Office Visit Cardiology at [place] [phone] Porsha Mcdaniels MD [facility] [place] [address] 12/13/2023 10:00 AM EDT Clinical Support [place] [address] Lucero Romero, [place] [facility] [place] [address] documented as of this encounter Visit Diagnoses Not on filedocumented in this encounter Care Teams Activity Therapy Teacher Relationship Specialty Start Date End Date Polo Pearce PA [address] [place] [address] PCP - General Internal Medicine 06/09/21 documented as of this encounter
--- OUTSIDE RECORDS SUMMARY | 2023-09-20 14:36 | XMS_ITS | Encounter Summary ---
[place] [address] Care Team Providers Care Passenger Tire Builder Name Role Phone Polo Pearce Primary Care Provider [phone] Encounter Details Date Type Department Care Team (Late st Contact Info) Description 10/20/2022 Telephone Cardiology at [address] [phone] Gianna Day, RN Social History Tobacco Use Types Packs/Day Years Used Date Smoking Tobacco: Never Smokeless Tobacco: Never Alcohol Use Standard Drinks/Week Comments Never 0 (1 standard drink = 0.6 oz pur e alcohol) Sex and Gender Information Value Date Recorded Sex Assigned at Not on file Gender Identity Not on file Sexual Orientation Not on file documented as of this encounter Miscellaneous Notes * Telephone Encounter - Gianna Day RN - 10/20/2022 11:40 AM EDT Opened in error documented in this encounter Plan of Treatment Upcoming Encounters Date Type Department Care Team (Late st Contact Info) Description 10/08/2023 8:30 AM EDT Tech [place] [address] Jose Cook 10/08/2023 9:30 AM EDT Office [place] [address] [facility] [place] [address] 10/21/2023 10:30 AM EDT Appointment Nuclear Medicine at [address] Mary Reyes, [facility] [place] [address] 10/21/2023 11:30 AM EDT Appointment Nuclear Medicine at [address] Mary Reyes [facility] [place] [address] 10/21/2023 12:30 PM EDT Appointment Nuclear Medicine at [place] [phone] Mary Reyes [facility] [place] [address] 10/21/2023 1:30 PM EDT Appointment Nuclear Medicine at [place] [phone] Mary Reyes [facility] [place] [address] 10/21/2023 2:30 PM EDT Appointment [place] [address] Mary Reyes [facility] [place] [address] 10/26/2023 4:00 PM EDT Office Visit Cardiology at [address] [place] [address] Jaspreet Kinsey MD [facility] [place] [address] 10/28/2023 9:00 AM EDT Office [place] [address] 10/29/2023 10:00 AM EDT Clinical [place] [address] 10/29/2023 10:15 AM EDT Procedure [place] [address] 11/01/2023 5:00 PM EDT Office Visit Gastroenterology at [place] [phone] Selene Browning, [facility] [place] [address] 11/22/2023 4:40 PM EDT Office Visit Cardiology at [place] [phone] Porsha Mcdaniels MD [facility] [place] [place] [address] 12/13/2023 10:00 AM EDT Clinical [place] [phone] [facility] [place] [address] documented as of this encounter Visit Diagnoses Not on filedocumented in this encounter Care Teams Passenger Tire Builder Relationship Specialty Start Date End Date Polo Pearce PA [address] [place] [address] PCP - General Internal Medicine 06/09/21 documented as of this encounter
--- OUTSIDE RECORDS SUMMARY | 2023-09-20 14:36 | XMS_ITS | Encounter Summary ---
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 Name Role Phone Polo Pearce Primary Care Provider [phone] Reason for Visit * Auth/Cert (Routine) Specialty Diagnoses / Procedures Referred By Jayant harris Referred To Contact Diagnoses NSTEMI (non-ST elevated myocardial infarction) NSTEMI NSTEMI (non-ST elevated myocardial infarction) [I21.4] [I21.4] NSTEMI (non-ST elevated myocardial infarction) Procedures EMERGENCY IPI Itz Bhardwaj MD [facility] [place] [address] [place] [address] [facility] Referral ID Status Reason Start Date Expiration Date Visits Re quested Visits Authorized [id number] 1 1 Encounter Details Date Type Department Care Team (Latest Contact Info) Description 02/08/2023 6:34 PM EST - 02/11/2023 3:45 PM EST Hospital Encounter Heart and Vascular Unit Level 4 [place] [id number] Bobby Edmonds MD [facility] [place] [place] [address] Itz Bhardwaj MD [facility] [place] [address] Chest pain, unspecified type; NSTEMI (non-ST elevated myocardial infarction) Discharge Disposition: Home Social History Tobacco Use [...] slept in a prison (including now)? No 02/10/2023 Sex and Gender Information Value Date Recorded Sex Assigned at Not on file Gender Identity Not on file Sexual Orientation Not on file documented as of this encounter Last Filed Vital Signs Vital Sign Reading Time Taken Comments Blood Pressure 111/61 02/11/2023 11:41 AM EST Pulse 53 02/11/2023 11:41 AM EST Temperature 36.5 ??C (97.7 ??F) 02/11/2023 11:[address] Respiratory Rate 18 02/11/2023 4:09 AM EST Oxygen Saturation 96% 02/11/2023 11:41 AM EST Inhaled Oxygen Concentration - - Weight 99 kg (218 lb 4.1 oz) 02/11/2023 4:09 AM EST Height 162.6 cm (5' 4) 02/10/2023 1:00 PM EST Body Mass Index 37.46 02/10/2023 1:00 PM EST documented in this encounter Discharge Summaries * Itz Bhardwaj MD - 02/11/2023 12:43 PM EST Images from the original note were not included. Discharge Summary Patient Name: Loida Madrigal Patient Age: 52 y.o. Language: Pashto Race: White Ethnicity: Not nor Admit date: 02/08/2023 Discharge date and time: 02/11/2023 Attending Physician: Itz Bhardwaj MD Discharge Physician: Itz Bhardwaj MD PCP: JOCY Franco [phone]) ID: Loida Madrigal is a 52 y.o. female w/ PMH of NSTEMI (2019, no coronary disease identified),HTN, HLD, HFpEF, PE, AVNRT, and Afib on eliquis, admitted to [facility] on 02/08/2023 for a total of 3 days, for chest pain and shortness of breath. Recommendations for Providers: FYI please follow up on patient's sleep apnea and if this warrants further work up. Make sure she is compliant with BiPAP. FYI obtained UA prior to discharge and it showed moderate amount of calcium oxalate. Advised patient to stay adequately hydrated for possible kidney stones. If symptoms worsen, please pursue further work up with noncontrast CT. Please monitor Qtc regularly as she is now taking ranolazine, which can prolong Qtc Please check BMP to make sure her potassium levels are wnl #Chavis Med Changes: - Discontinued: Amlodipine, Bumetanide - New Medications: Torsemide 20 mg, Spironolactone 25 mg qd, Ranolazine 500 mg BID #Lab checks - Please check BMP to monitor for any electrolyte abnormalities - Please consider checking thyroid panel (TSH on admission is 4.00 which is higher end of normal) Pending Studies and Lab Data: none Discharge Diagnoses (Hospital Problems) and Secondary Diagnoses (Chronic Problems): Active Hospital Problems Diagnosis NSTEMI (non-ST elevated myocardial infarction) Resolved Hospital Problems No resolved problems to display. Active Non-Hospital Problems Diagnosis Paroxysmal atrial fibrillation 10/20/2022: diagnosed in clinic (see EKG on same date) with c/o chest pain Pulmonary embolus 07/2022: right upper lobe. Started on eliquis 08/2022 TTE ([facility]): normal bi-v s/f. 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 Noted to carry most fluid in abdomen - Multiple echos since then, including 09/2022, without significant finding Restless legs Asthma History of Presentation (per 02/08/2023 Admission H&P): Mrs. Madrigal reports an approximate 1 week history of worsening shortness of breath and mild chest pain, which she notes is worse when lying back and improved with leaning forward. This was stableuntil this morning, when she noted worsening 10/10 left-sided chest pressure with radiation into the left arm and neck/jaw. This pain is present at rest and made worse both with deep breathing and palpation of the chest wall. Pain is also present in the epigastric and periumbilical areas of the abdomen.In addition, she noted acute onset of fatigue and nausea, but denies vomiting. At this time, she presented to the [facility] ED. In the [facility] ED, initial troponin was elevated at 622ng/L. D-Dimer was 264 and K was 3.2. Pro-BNP was elevated at 1256. CXR did not show acute process. An EKG was performed and showed ST-depressions in leads II, III, aVF, and V4-V6. She was given several doses of sublingual nitroglycerin without significant reduction in chest pain. Given her elevated troponin and EKG changes, cardiology at [facility] was contacted for transfer. She was loaded with aspirin and started on a heparin gtt prior to transfer. On my interview today, Loida reports significant improvement in chest pain with nitroglycerin gttat 10, though she does endorse mild residual chest pain. She states that she has had several similar episodes in the past characterized by chest pain, elevated troponin, and EKG changes. A LHC was performed in 2019 which did not show CAD. A RHC was performed in June 2021 which showed mild pulmonary hypertension. Denies productive cough, fevers, chills. She denies recent viral illness or sick contacts. Hospital Course: Loida Madrigal was admitted to the Hospital Medicine Service on 02/08/2023. The following issueswere addressed and she was discharged on 02/11/2023. #Chest Pain There was initial concern for NSTEMI given troponin elevations and EKG changes from OSH. However, the EKG changes are largely unchanged from prior EKGs. Her troponins at [facility] are flat 23 > 27. Additionally, she had a CT coronary in 09/2022 which showed non-obstructive coronary arteries. Her TTE was reassuring with EF 59% with concern for segmental wall motion abnormalities that were not present prior. Her chest pain is likely not related to ACS. She did continue to have chest pain throughoutadmission that responded to nitro. Her COLLEGE DIRECTOR amlodipine was discontinued due to hypotension and LE edema. Ranolazine was started on 02/10. Given her atypical presentation with CP that is exacerbated with deep breaths and improves with leaning forward, an ESR and CRP obtained to shed light on possible pericarditis. Her inflammatory markers were normal (ESR 15 and CRP < 3.0). Cardiac Risk Stratification HbA1c: 5.6 TSH: 4.00 Lipid Panel: Total chol 228, HDL 33, LDL 151 #Hypokalemia During hospital admission, she did have a K+ 2.9 which was repleted. Likely in the setting of home bumex use. Started her on spironolactone 25 mg qd to maintain potassium levels. On discharge, her K+was 4.0. #Paroxysmal Atrial fibrlilation #Pulmonary Embolism During hospital admission, her home eliquis was held as she was on a heparin gtt, which was stoppedafter it was felt that there was low likelihood of ACS. On 02/09, her eliquis was resumed. Vitals: Last value Range last 24 hrs Temperature Temp: 36.5 ??C (97.7 ??F) Temp: [36.4 ??C (97.5 ??F)-36.8 ??C (98.3 ??F)] Heart Rate Heart Rate: 53 Heart Rate: [47-53] Blood Pressure BP: 111/61 BP: (93-120)/(52-92) Art Line BP BP (Arterial Line): -- MAP (NBP): [64 mmHg-102 mmHg] Respiratory Rate Resp: 18 Resp: [16-18] SpO2 SpO2: 96 % SpO2: [94 %-98 %] Oxygen Delivery Oxygen Therapy O2 Device: None (Room air) Physical Exam: General: Awake, alert, no acute distress HEENT: Anicteric, no conjunctival injection CV: RRR, no murmurs/rubs/gallops, 2+ radial/DP pulses Pulm: Normal respiratory effort, CTA with good air entry bilaterally, no rales/rhonchi/wheezes Abdomen: Non-distended, normal active bowel sounds, soft, non-tender, no masses, no guarding Extremities: No lower extremity edema. No clubbing or cyanosis Psych/Neuro: Appropriate affect and cognition AOx3 Skin: Warm, dry, no rashes Important Studies and Lab Data: CBC: Recent Labs 02/11/2334002/10/2334502/09/23 0355 WBC 6.5 6.7 6.8 HGB 14.4 14.4 14.2 HCT 42.9 42.2 41.2 PLATELET 240 246 237 NEUTROABS 3.50 4.01 3.66 Chemistry: Recent Labs 02/11/2334002/10/2334502/09/23 1446 02/09/23 0355 NA 138 141 -- 142 K 4.0 3.4* 4.0 2.9* CL 109* 105 -- 103 CO2 17* 23 -- 24 BUN 23* 20* -- 19* CREATININE 1.07 1.31* -- 1.13 GLUCOSE 97 103 -- 103 ANIONGAP 12 13 -- 15 Recent Labs 02/11/2334002/10/23 0346 02/09/23 0355 CALCIUM 9.1 9.2 9.4 MAGNESIUM 0.91 1.01 1.04 Cardiac enzymes: Recent Labs 02/08/23220709/26/22 1750 PROBNP 850* 1,069* Troponins: 23 > 27 Endocrine: Recent Labs 02/08/23220709/26/22 1750 TSH 4.00 3.02 Recent Labs 09/27/22 0307 HA1C 5.6 CRP, Sed Rate Recent Labs 02/09/23 0355 CRP <3.0 SEDRATE 15 Lipids: Lab Results Component Value Date CHLPL 228 09/27/2022 HDL 33 09/27/2022 CHOLHDL 6.9 09/27/2022 TRIG 221 09/27/2022 LDLCHOL 151 09/27/2022 LDLDIRECT 165 08/30/2019 Urinalysis 02/11/2023: 500 glucose UA, trace ketones, negative blood, moderate leukocytes, WBC 29, moderate CaOx Imaging/Diagnostics TTE 02/09/2023 Interpretation Summary Left ventricular systolic function is normal. The left ventricular ejection fraction is 59% by Reyes's biplane. There are segmental wall motion abnormalities present; the mid-anterior segment appears hypokinetic. The right ventricle is of normal size. Right ventricular systolic function is normal. Mild biatrial enlargement. No hemodynamically significant valvular disease. When compared to the prior study that was done by the on-call overnight manager army, there is no significant change in biventricular function. Discharge Conditions/Prognosis: Upon discharge the pt is hemodynamically stable, afebrile, fully ambulatory without requiring supplemental oxygen, holding down food/drink, and pain free controlled with stable oral regimen. Discharge to: home. Discharge Medications: Your Medications New Medications Dose Details ranolazine ER 500 mg ER 12 hr tablet Commonly known as: Ranexa Take 1 tablet by mouth 2 times daily. 500 mg Quantity: 60 tablet Refills: 11 spironolactone 25 mg tablet Commonly known as: Aldactone Take 1 tablet by mouth daily. Start taking on: February 12, 2023 25 mg Quantity: 90 tablet Refills: 3 torsemide 20 mg tablet Commonly known as: Demadex Take 1 tablet by mouth daily. Start taking on: February 12, 2023 20 mg Quantity: 90 tablet Refills: 3 Continued medications, unchanged Dose Details albuteroL 90 [...] days. Refills: 0 fluticasone propionate 50 mcg/actuation [place], Suspension Commonly known as: Flonase 1 spray by Each Nare route daily. 1 spray Refills: 0 gabapentin 300 mg [...] 2 times daily. 2 mg Refills: 0 topiramate 50 mg tablet Commonly known as: Topamax Take 100 mg by mouth nightly. 100 mg Refills: 0 STOPPED Medications amLODIPine 5 mg tablet Commonly known as: Norvasc bumetanide 2 mg tablet Commonly known as: Bumex Updated Allergies/ADRs: Allergies Allergen Reactions Clobetasol Rash Other reaction(s): Skin Rash Instructions Given to Patient at Discharge: Patient Instructions Patient Instructions on Discharge to Home You were hospitalized because - you were having chest pain and changes on your EKG. It seems that this is similar to your prior admissions for chest pain. Since you had a reassuring heart catheterization in [address] scan in 2021, the decision was made not to pursue any invasive testing. You were started on spironolactone, which should help to protect your heart in the long-term. Amlodipine was stopped due to low blood pressures. Given your atrial fibrillation, we highly recommend discussing management of your sleep apnea with your PCP. Optimal treatment of this condition could help to improve your symptoms and lower atrial fibrillation burden. Please stay hydrated. New Medications Start Taking: - Spironolactone 25 mg daily to help protect your heart and maintain your potassium levels - Ranolazine 500 mg twice daily to help your anginal symptoms - Torsemide 20 mg daily as your new diuretic Stop Taking: - Amlodipine, since it was making your blood pressure too low - Bumetanide Call Your Doctor If: You develop chest pain, shortness of breath, heart palpitations, lightheadedness, dizziness, fevers(> 100.4 F), swelling in your legs, rapid weight gain, or difficulty urinating. Activity level: As tolerated. Diet: As before. We recommend a low-sodium diet to help prevent excess fluid retention. Driving: Please do not drive if you are feeling dizzy, have blurry vision, feel tired, or feel ill in any way. Shower/Bath: No restrictions Exercise: Exercise 5-7 days per week as tolerated with gradual increase to 30 minutes per day. Home oxygen therapy: N/A Arrangements for VNA/home care: none Follow up Appointments: Electrophysiology: Dr. Tovar on February 16 at 11:20 a.m. PCP: JOCY Franco on February 25 at 9:30 a.m. Cardiology: Dr. Kinsey on March 04 at 4:00 p.m. General Instructions None Future Appointments and Orders Future Appointments and Orders Future Appointments Provider Department Dept Phone 02/16/2023 11:20 AM Jed Tovar MD Cardiology at [facility] Arrive at: [employer] [facility] [phone] 03/04/2023 4:00 PM Jaspreet Kinsey MD Cardiology at [place] Arrive at: [facility] [address] [phone] Provider Contact Information: JOCY Franco [address] / [facility] [id number] Discharge References/Attachments: Discharge References/Attachments None Addendum: The congestive heart failure was mild, acute on chronic, diastolic. documented in this encounter Discharge Instructions * Patient Instructions* Heidy Walker DO - 02/09/2023 9:56 AM EST Patient Instructions on Discharge to Home You were hospitalized because - you were having chest pain and changes on your EKG. It seems that this is similar to your prior admissions for chest pain. Since you had a reassuring heart catheterization in [address] scan in 2021, the decision was made not to pursue any invasive testing. You were started on spironolactone, which should help to protect your heart in the long-term. Amlodipine was stopped due to low blood pressures. Given your atrial fibrillation, we highly recommend discussing management of your sleep apnea with your PCP. Optimal treatment of this condition could help to improve your symptoms and lower atrial fibrillation burden. Please stay hydrated. New Medications Start Taking: - Spironolactone 25 mg daily to help protect your heart and maintain your potassium levels - Ranolazine 500 mg twice daily to help your anginal symptoms - Torsemide 20 mg daily as your new diuretic Stop Taking: - Amlodipine, since it was making your blood pressure too low - Bumetanide Call Your Doctor If: You develop chest pain, shortness of breath, heart palpitations, lightheadedness, dizziness, fevers(> 100.4 F), swelling in your legs, rapid weight gain, or difficulty urinating. Activity level: As tolerated. Diet: As before. We recommend a low-sodium diet to help prevent excess fluid retention. Driving: Please do not drive if you are feeling dizzy, have blurry vision, feel tired, or feel ill in any way. Shower/Bath: No restrictions Exercise: Exercise 5-7 days per week as tolerated with gradual increase to 30 minutes per day. Home oxygen therapy: N/A Arrangements for VNA/home care: none Follow up Appointments: Electrophysiology: Dr. Tovar on February 16 at 11:20 a.m. PCP: JOCY Franco on February 25 at 9:30 a.m. Cardiology: Dr. Kinsey on March 04 at 4:00 p.m. documented in this encounter Medications at Time of Discharge Medication Sig Dispensed Refills Start Date End Date spironolactone (Aldactone) 25 mg tablet Take 1 [...] as needed. fluticasone propionate (FLONASE) 50 mcg/actuation [place], Suspension 1 spray by Each Nare route [...] 4 hours as needed. Use with spacer apixaban (Eliquis) 5 mg tablet Take 1 tablet by mouth 2 times daily. 60 tablet 11 02/11/2023 04/01/2023 ranolazine ER (Ranexa) 500 mg ER 12 hr tablet Take 1 tablet by mouth 2 times daily. 60 tablet 11 02/11/2023 03/22/2023 torsemide (Demadex) 20 mg tablet Take 1 [...] of this encounter Progress Notes * Heidy Walker DO - 02/10/2023 6:23 AM EST Inpatient Cardiology Progress Note Patient Name: Loida Madrigal Date of Admission: 02/08/2023 ( Hospital Day 2 days ) Service: S2 ID: Loida Madrigal is a 52 y.o. female with PMHx NSTEMI (2019, no coronary disease identified),HTN, HLD, HFpEF, AVNRT, hx of PE, and Afib on eliquis who initially presented to [facility] with chest pain and shortness of breath. Active Problems: Active Hospital Problems Diagnosis NSTEMI (non-ST elevated myocardial infarction) Resolved Hospital Problems No resolved problems to display. 24 hr events: - No acute events overnight - Walked yesterday and had 2/10 chest pain that radiated to jaw and shoulder - states she had constant chest discomfort throughout the night with radiation to her back, states it is worse lying flat - also reports she has had decreased appetite and feels bloated and full very easily This AM: - K+ 3.4, PO 40 mEq x2 - CP rated 4/10 s/p SL NTG x1 and now improved to 2/10 ROS: Denies CP, SOB, palpitations, PND, Orthopnea, dizziness/LH, LE swelling or pain, n/v, abd pain. Physical Exam: Last value Range last 24 hrs Temperature Temp: 36.5 ??C (97.7 ??F) Temp: [36 ??C (96.8 ??F)-36.7 ??C (98.1 ??F)] Heart Rate Heart Rate: 57 Heart Rate: [50-57] Blood Pressure BP: 106/56 BP: (97-106)/(44-66) Respiratory Rate Resp: 16 Resp: [16-18] SpO2 SpO2: 94 % SpO2: [93 %-98 %] Telemetry: Sinus bradycardia. Weight: Patient Vitals for the past 168 hrs: Weight 02/10/23 0603 98.2 kg (216 lb 9.6 oz) 02/09/23 0237 98.5 kg (217 lb 3.2 oz) 02/08/23 1837 98 kg (216 lb) Admit Weight: 97.98 kg Intake/Output Summary (Last 24 hours) at 02/10/2023 1036 Last data filed at 02/10/2023 1000 Gross per 24 hour Intake 1760 ml Output 2425 ml Net -665 ml Patient Vitals for the past 168 hrs: Weight 02/10/23 0603 98.2 kg (216 lb 9.6 oz) 02/09/23 0237 98.5 kg (217 lb 3.2 oz) 02/08/23 1837 98 kg (216 lb) General: Pleasant, alert, appropriate, in NAD. Appears stated age. HEENT: EOMI, PERRL, anicteric sclera. Oropharynx clear w/o lesions. Moist mucous membranes. Neck: Supple with normal ROM. No obvious LAD. JVP ~8. Cardiac: Distant heart sounds w/ normal S1 and S2; Bradycardic rate and rhythm; No murmurs/gallops/rubs. Respiratory: Nonlabored. Clear to auscultation bilaterally; No wheezes/ rhonchi/ rales. Abd: + BS; soft, non-tender, non-distended, no obvious masses. Ext: WWP without le edema, cyanosis or clubbing. DPP 2+ bilaterally. Neuro: Alert and oriented without gross focal deficits. Appropriate. Skin: No rashs, no lesions, no petechiae Labs Recent Labs 02/10/23 0346 02/09/23 0355 02/08/232207 WBC 6.7 6.8 7.7 HGB 14.4 14.2 15.6* HCT 42.2 41.2 46.9* PLATELET 246 237 201 Recent Labs 02/10/23 0346 02/09/23 1446 02/09/23 0355 02/08/23 220 NA 141 -- 142 151* K 3.4* 4.0 2.9* 3.4* CL 105 -- 103 91* CO2 23 -- 24 12* BUN 20* -- 19* 17 CREATININE 1.31* -- 1.13 0.96 No results for input(s): AST, ALT, ALKPHOS, BILITOT, BILIDIR in the last 168 hours. Recent Labs 02/10/23 0346 02/09/23 0355 02/08/23 220 CALCIUM 9.2 9.4 8.9 MAGNESIUM 1.01 1.04 1.15* Troponin 23 Pro BNP 850 (down from 1,069 prior) Telemetry: Sinus bradycardia. Imaging/Studies: OSH EKG demonstrating ST-depressions in II/aVF and V4-V6. CXR Performed at OSH; no acute cardiopulmonary process. Most recent TTE 09/27/22; - Left ventricular systolic function is normal. Left ventricular ejection fraction is estimated visually at 60%. There are no segmental wall motion abnormalities. -The right ventricle is of normal size. Right ventricular systolic function is normal. -The left atrium is severely dilated. -There is no valve disease. -There is a large pericardial fat pad without a pericardial effusion. -Compared with the previous echo performed on 12/31/21, there is no significant change. TTE 02/09/2023: Interpretation Summary Left ventricular systolic function is normal. The left ventricular ejection fraction is 59% by Reyes's biplane. There are segmental wall motion abnormalities present; the mid-anterior segment appears hypokinetic. The right ventricle is of normal size. Right ventricular systolic function is normal. Mild biatrial enlargement. No hemodynamically significant valvular disease. When compared to the prior study that was done by the on-call overnight manager army, there is no significant change in biventricular function. Assessment: Loida Madrigal is a 52 y.o. female with a PMHx NSTEMI (2019, no coronary disease identified), HTN, HLD, HFpEF, and Afib on [facility] who initially presented to [facility] with chest pain and shortness ofbreath. There was initial concern for NSTEMI (with elevated trop and EKG changes at OSH). Her troponins here are flat 23 > 27. Additionally, she had a recent coronary CT in 09/2022 with coronary calcium score of 182 and CAD-RADS 2. Her TTE with LV EF 59% with segmental wall motion abnormalities in mid-anterior segment. Her clinical presentation (CP improving with leaning forward and worsening with deep breaths) was suggestive of possible pericarditis. However, ESR and CRP wnl. 02/10: Started ranolazine 500 mg BID for anti-anginal and will check EKG tomorrow AM. Discontinued bumex 2 mg BID (she already received 1 dose). Will start torsemide 20 mg qd tomorrow. Plan: #Chest pain #HLD #HFpEF #History of SVT #History of PE - Trop 23 > 27 - Anti-anginal - start ranolazine - SL Nitro PRN. - Maintain telemetry. - D/c home bumex 2mg bid - Start torsemide 20 mg qd tomorrow - Hold jardiance 10mg. - CRP and ESR wnl - c/w atorvastatin 80mg QD. #CATIE - CTM #Hypokalemia - K+ 2.9 > 3.4 - Likely in setting of home Bumex use - Started spironolactone 25 mg Cardiac Risk Stratification HbA1c: 5.6 TSH: 4.00 Lipid: Total Chol 228, HDL 33, LDL 151 #Paroxysmal Atrial fibrillation #Pulmonary Embolus - resume eliquis 5mg BID #Home Medications - Continue home duloxetine 60mg QD. - Continue home topiramate 100mg QD. #Other - DVT ppx: doac - GI ppx: n/a - Diet: Cardiac diet #Dispo: Pending clinical course. Code Status: Attempt Cardiopulmonary Resuscitation - Inpatient Heidy Walker DO Internal Medicine PGY-1 Pager [phone], M1-S2 Service Associated attestation - Itz Bhardwaj MD - 02/10/2023 3:26 PM EST I have seen and examined the patient, providing chavis components as outlined below. I have reviewed the resident???s above note; my evaluation of the patient is below: Her HFpEF is improving. She has had a good diuresis. Her BUN and creatinine are slightly increased today, so I think we have reached the limits of diuresis. I am going to change her loop diuretic to torsemide 20 mg once daily for convenience and probably also more appropriate dosing. She will continue the spironolactone. She continues to have anginal quality chest pain despite normal epicardial vessels. This was not helped by amlodipine. I doubt spasm is a etiology. We need to consider microvascular disease. I am going to trial her on ranolazine. * Heidy Walker DO - 02/09/2023 6:29 AM EST Inpatient Cardiology Progress Note Patient Name: Loida Madrigal Date of Admission: 02/08/2023 ( Hospital Day 1 day ) Service: S2 ID: Loida Madrigal is a 52 y.o. female with PMHx NSTEMI (2019, no coronary disease identified),HTN, HLD, HFpEF, AVNRT, hx of PE, and Afib on eliquis who initially presented to [facility] with chest pain and shortness of breath. Active Problems: Active Hospital Problems Diagnosis NSTEMI (non-ST elevated myocardial infarction) Resolved Hospital Problems No resolved problems to display. 24 hr events: - No acute events overnight - Transferred from OSH for concern for NSTEMI (elevated troponin and EKG changes) This AM: - feeling improved from yesterday - K+ 2.9, PO 40 mEq x3 ROS: Denies CP, SOB, palpitations, PND, Orthopnea, dizziness/LH, LE swelling or pain, n/v, abd pain. Physical Exam: Last value Range last 24 hrs Temperature Temp: 36.3 ??C (97.3 ??F) Temp: [36.3 ??C (97.3 ??F)-36.6 ??C (97.9 ??F)] Heart Rate Heart Rate: 57 Heart Rate: [50-60] Blood Pressure BP: 95/54 BP: (94-114)/(45-79) Respiratory Rate Resp: 16 Resp: [16] SpO2 SpO2: 97 % SpO2: [96 %-98 %] Telemetry: Sinus bradycardia. Weight: Patient Vitals for the past 168 hrs: Weight 02/09/23236 98.5 kg (217 lb 3.2 oz) 02/08/23 183 98 kg (216 lb) Admit Weight: 97.98 kg Intake/Output Summary (Last 24 hours) at 02/09/2023 0747 Last data filed at 02/09/2023 0551 Gross per 24 hour Intake 127.17 ml Output 350 ml Net -222.83 ml Patient Vitals for the past 168 hrs: Weight 02/09/23 0237 98.5 kg (217 lb 3.2 oz) 02/08/23 183 98 kg (216 lb) General: Pleasant, alert, appropriate, in NAD. Appears stated age. HEENT: EOMI, PERRL, anicteric sclera. Oropharynx clear w/o lesions. Moist mucous membranes. Neck: Supple with normal ROM. No obvious LAD. JVP ~8. Cardiac: Distant heart sounds w/ normal S1 and S2; Bradycardic rate and rhythm; No murmurs/gallops/rubs. Respiratory: Nonlabored. Clear to auscultation bilaterally; No wheezes/ rhonchi/ rales. Abd: + BS; soft, non-tender, non-distended, no obvious masses. Ext: WWP without le edema, cyanosis or clubbing. DPP 2+ bilaterally. Neuro: Alert and oriented without gross focal deficits. Appropriate. Skin: No rashs, no lesions, no petechiae Labs Recent Labs 02/09/2335402/08/232207 WBC 6.8 7.7 HGB 14.2 15.6* HCT 41.2 46.9* PLATELET 237 201 Recent Labs 02/09/2335402/08/232207 NA 142 151* K 2.9* 3.4* CL 103 91* CO2 24 12* BUN 19* 17 CREATININE 1.13 0.96 No results for input(s): AST, ALT, ALKPHOS, BILITOT, BILIDIR in the last 168 hours. Recent Labs 02/09/2335402/08/232207 CALCIUM 9.4 8.9 MAGNESIUM 1.04 1.15* Troponin 23 Pro BNP 850 (down from 1,069 prior) No results for input(s): INR, PT, PTT in the last 168 hours. No results for input(s): CK, TROPONINT in the last 168 hours. Telemetry: Sinus bradycardia. Imaging/Studies: OSH EKG demonstrating ST-depressions in II/aVF and V4-V6. CXR Performed at OSH; no acute cardiopulmonary process. Most recent TTE 09/27/22; - Left ventricular systolic function is normal. Left ventricular ejection fraction is estimated visually at 60%. There are no segmental wall motion abnormalities. -The right ventricle is of normal size. Right ventricular systolic function is normal. -The left atrium is severely dilated. -There is no valve disease. -There is a large pericardial fat pad without a pericardial effusion. -Compared with the previous echo performed on 12/31/21, there is no significant change. TTE 02/09/2023: Interpretation Summary Left ventricular systolic function is normal. The left ventricular ejection fraction is 59% by Reyes's biplane. There are segmental wall motion abnormalities present; the mid-anterior segment appears hypokinetic. The right ventricle is of normal size. Right ventricular systolic function is normal. Mild biatrial enlargement. No hemodynamically significant valvular disease. When compared to the prior study that was done by the on-call overnight manager army, there is no significant change in biventricular function. Cardiac Catheterization: Pending. Assessment: Loida Madrigal is a 52 y.o. female with a PMHx NSTEMI (2019, no coronary disease identified), HTN, HLD, HFpEF, and Afib on eliquis who initially presented to [facility] with chest pain and shortness ofbreath. There was initial concern for NSTEMI (with elevated trop and EKG changes at OSH). Her troponins here are flat 23 > 27. Additionally, she had a recent coronary CT in 09/2022 with coronary calcium score of 182 and CAD-RADS 2. Her TTE with LV EF 59% with segmental wall motion abnormalities in mid-anterior segment. Her clinical presentation (CP improving with leaning forward and worsening with deep breaths) was suggestive of possible pericarditis. However, ESR and CRP wnl. Plan: #Chest pain #HLD #HFpEF #History of SVT #History of PE - Trop 23 > 27 - SL Nitro PRN. - Maintain telemetry. - Hold home bumex 2mg, jardiance 10mg. - CRP and ESR wnl - c/w atorvastatin 80mg QD. #Hypokalemia - K+ 2.9 - Likely in setting of home Bumex use - Started spironolactone 25 mg Cardiac Risk Stratification HbA1c: 5.6 TSH: 4.00 Lipid: Total Chol 228, HDL 33, LDL 151 #Paroxysmal Atrial fibrillation #Pulmonary Embolus - resume eliquis 5mg BID #Home Medications - Continue home duloxetine 60mg QD. - Continue home topiramate 100mg QD. #Other - DVT ppx: doac - GI ppx: n/a - Diet: Cardiac diet #Dispo: Pending clinical course. Code Status: Attempt Cardiopulmonary Resuscitation - Inpatient Heidy Walker DO Internal Medicine PGY-1 Pager [phone], M1-S2 Service documented in this encounter H&P Notes * German Bianchi MD - 02/08/2023 10:05 PM EST Images from the original note were not included. Cardiology Admission History and Physical Patient Name: Loida Madrigal Service: M1-S1 Responsible Attending: Bobby Edmonds MD PCP: JOCY Franco PCP phone #: [phone] ID/Chief Complaint: Loida Madrigal is a 52 y.o. female with a PMHx NSTEMI (2019, no coronary disease identified), HTN, HLD, HFpEF, PE, AVNRT, and Afib on eliquis who initially presented to [facility] with chest pain and shortness of breath, now transferred to [facility] for management of presumed NSTEMI. History of Present Illness: Mrs. Madrigal reports an approximate 1 week history of worsening shortness of breath and mild chest pain, which she notes is worse when lying back and improved with leaning forward. This was stableuntil this morning, when she noted worsening 10/10 left-sided chest pressure with radiation into the left arm and neck/jaw. This pain is present at rest and made worse both with deep breathing and palpation of the chest wall. Pain is also present in the epigastric and periumbilical areas of the abdomen.In addition, she noted acute onset of fatigue and nausea, but denies vomiting. At this time, she presented to the [facility] ED. In the [facility] ED, initial troponin was elevated at 622ng/L. D-Dimer was 264 and K was 3.2. Pro-BNP was elevated at 1256. CXR did not show acute process. An EKG was performed and showed ST-depressions in leads II, III, aVF, and V4-V6. She was given several doses of sublingual nitroglycerin without significant reduction in chest pain. Given her elevated troponin and EKG changes, cardiology at [facility] was contacted for transfer. She was loaded with aspirin and started on a heparin gtt prior to transfer. On my interview today, Loida reports significant improvement in chest pain with nitroglycerin gttat 10, though she does endorse mild residual chest pain. She states that she has had several similar episodes in the past characterized by chest pain, elevated troponin, and EKG changes. A LHC was performed in 2019 which did not show CAD. A RHC was performed in June 2021 which showed mild pulmonary hypertension. Denies productive cough, fevers, chills. She denies recent viral illness or sick contacts. Review of Systems: GENERAL HEENT CV PULM All negative All negative All negative All negative Weight loss X Headache X Chest Pain Non-productive cough Weight gain Vision change Palpitations Productive cough Fevers Sinus congestion X Orthopnea Wheezing Chills Hoarseness LE edema Hemoptysis Night sweats Epistaxis PND X Pleuritic pain X Fatigue Syncope X SOB Claudication RAVI MSK RENAL ENDO GI X All negative X All negative X All negative All negative Arthralgias Frequency Heat intolerance Blood in stool Myalgias Urgency Cold intolerance Dysphagia Weakness Hematuria Polydipsia Odynophagia Stiffness Flank pain Polyphagia X Abdominal discomfort Dysuria Cushingoid Constipation Foamy urine Diarrhea Discharge X Nausea/Vomiting LYMPH SKIN NEURO PSYCH X All negative X All negative X All negative X All negative Swollen nodes Rash Seizures Depressed affect Tender nodes Ulcers Tremors Occupational stress Diffuse nodes Bruising Spasticity Anxiety Local nodes Tanned skin Focal weakness Insomnia Night sweats Telangiectasias Diplopia Paresthesias Dizziness Problem List/Past Medical History Patient Active Problem List Diagnosis NSTEMI (non-ST elevated myocardial infarction) Paroxysmal atrial fibrillation 10/20/2022: diagnosed in clinic (see EKG on same date) with c/o chest pain Pulmonary embolus 07/2022: right upper lobe. Started on eliquis 08/2022 TTE ([facility]): normal bi-v s/f. 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 Noted to carry most fluid in abdomen - Multiple echos since then, including 09/2022, without significant finding Restless legs Asthma Past Medical History: Diagnosis Date Asthma Depression Endometriosis S/p hysterectomy Insomnia Migraine Obesity (BMI 30-39.9) MARYLOU on CPAP Seasonal allergies Meds: No current facility-administered medications on file prior to encounter. Current Outpatient Medications on File Prior to Encounter Medication Sig Dispense Refill melatonin 10 mg capsule Take 10 mg by mouth nightly as needed. bumetanide (Bumex) 2 mg tablet Take 1 tablet by mouth 2 times daily. 180 tablet 3 atorvastatin (Lipitor) 80 mg tablet Take 1 tablet by mouth every evening. 90 tablet 3 Eliquis 5 mg tablet TAKE TWO TABLETS BY MOUTH TWICE A DAY FOR 7 DAYS THEN TAKE ONE TABLET BY MOUTH TWO TIMES A DAY omeprazole (PriLOSEC) 20 mg Capsule, Delayed Release(E.C.) [...] as needed. fluticasone propionate (FLONASE) 50 mcg/actuation [place], Suspension 1 spray by Each Nare route daily. gabapentin (Neurontin) 300 mg Capsule Take 600 mg by mouth nightly. topiramate (TOPAMAX) 50 mg Tablet Take 100 mg by mouth nightly. DULoxetine (CYMBALTA) 60 mg capsule Take 60 mg by mouth daily. albuterol (PROVENTIL HFA;VENTOLIN HFA) 90 mcg/Actuation inhaler Inhale 2 puffs into the lungs every4 hours as needed. Use with spacer amLODIPine (Norvasc) 5 mg tablet Take 1 tablet by mouth daily. 90 tablet 3 Allergies: Allergies Allergen Reactions Clobetasol Rash Other reaction(s): Skin Rash Family History: Mother: history of stroke. Father: history of AK in father. Siblings: none. Social History: Tobacco: non-smoker. EtOH: does not drink. Illicits: none. Vitals: Last value Range last 24 hrs Temperature Temp: 36.6 ??C (97.9 ??F) Temp: [36.4 ??C (97.6 ??F)-36.6 ??C (97.9 ??F)] Heart Rate Heart Rate: 50 Heart Rate: [50-60] Blood Pressure BP: 114/79 BP: (111-114)/(68-79) Respiratory Rate Resp: 16 Resp: [16] SpO2 SpO2: 96 % SpO2: [96 %-98 %] Examination: General: Pleasant, alert, appropriate, in NAD. Appears stated age. HEENT: EOMI, PERRL, anicteric sclera. Oropharynx clear w/o lesions. Moist mucous membranes. Neck: Supple with normal ROM. No obvious LAD. JVP ~8. Cardiac: Distant heart sounds w/ normal S1 and S2; Regular rate and rhythm; No murmurs/gallops/rubs. Respiratory: Nonlabored. Clear to auscultation bilaterally; No wheezes/ rhonchi/ rales. Abd: + BS; soft, non-tender, non-distended, no obvious masses. Ext: WWP without le edema, cyanosis or clubbing. DPP 2+ bilaterally. Neuro: Alert and oriented without gross focal deficits. Appropriate. Skin: No rashs, no lesions, no petechiae Laboratory: Recent Labs 02/08/23 2208 WBC 7.7 HGB 15.6* HCT 46.9* PLATELET 201 No results for input(s): NA, K, CL, CO2, BUN, CREATININE in the last 168 hours. No results for input(s): AST, ALT, ALKPHOS, BILITOT, BILIDIR in the last 168 hours. No results for input(s): CALCIUM, PHOS in the last 168 hours. No results for input(s): CK, TROPONINT in the last 168 hours. No results for input(s): PT, PTT, INR in the last 168 hours. Microbiology: None. Diagnostic Studies: EKG OSH EKG demonstrating ST-depressions in II/aVF and V4-V6. CXR Performed at OSH; no acute cardiopulmonary process. Most recent TTE 09/27/22; - Left ventricular systolic function is normal. Left ventricular ejection fraction is estimated visually at 60%. There are no segmental wall motion abnormalities. -The right ventricle is of normal size. Right ventricular systolic function is normal. -The left atrium is severely dilated. -There is no valve disease. -There is a large pericardial fat pad without a pericardial effusion. -Compared with the previous echo performed on 12/31/21, there is no significant change. ASSESSMENT: Loida Madrigal is a 52 y.o. female with a PMHx NSTEMI (2019, no coronary disease identified), HTN, HLD, HFpEF, and Afib on eliquis who initially presented to [facility] with chest pain and shortness of breath, now transferred to [facility] for management of presumed NSTEMI. Mrs. Madrigal presents with acute onset chest pain in the setting of subacute worsening shortnessof breath. Troponin was elevated to 622 at OSH (will trend to peak here) with inferolateral ST depressions in leads II, aVF, and V4-V6. She does meet criteria for NSTEMI, but will plan for non-urgentevaluation of coronary artery disease tomorrow given hemodynamic and clinical stability. Will complete load of 2nd antiplatelet w/ 600mg plavix and continue heparin GTT. Will also perform bedside TTEtonight prior to formal TTE tomorrow AM. While I am concerned for NSTEMI in this patient, there are also several factors in Loida's presentation that may indicate alternate or additional diagnoses. Her current presentation appears to be acute on subacute vs chronic, as she reports at least a week of symptoms preceding worsening chest pain. Chart review shows several hospitalizations for similar in the past, most recently in September 2022.Would query alternative causes of episodic chest pain including AVNRT, vasospasm. PLAN: # Admit to Cardiology S2 service #NSTEMI #HLD #HFpEF #History of SVT #History of PE - Trending troponin to peak. - Risk stratification w/ TSH, lipid profile, A1c. - Loaded with plavix 600mg. - S/p aspirin load at OSH. - Continue heparin GTT; holding home apixaban. - SL Nitro PRN. - Maintain telemetry. - Daily CBC, BMP. - Hold home bumex 2mg, jardiance 10mg. - Formal TTE ordered. - Continue atorvastatin 80mg QD. - NPO for possible cath. #Home Medications - Continue home duloxetine 60mg QD. - Continue home topiramate 100mg QD. Diet: NPO. Code status: full code. DVT ppx: heparin gtt GI ppx: none. German Bianchi MD, PGY-2 Cardiology M1-S2, Team Pager [phone] 02/08/2023 Associated attestation - Itz Bhardwaj MD - 02/09/2023 2:37 PM EST I have seen and examined the patient, providing chavis components as outlined below. I have reviewed the resident???s above note; my evaluation of the patient is below: This is a patient with known minimally diseased coronary arteries based on prior coronary angiography, both catheter and CT. The CT angiogram was fairly recent. She has ruled out for AK with low-level not increasing troponins and her EKG is at baseline. I see no evidence for ACS. We have diuresed her for her mild congestive heart failure. Because of the hypokalemia I am going to add spironolactone in place of the amlodipine which was causing swelling. She should be ready for discharge shortly. documented in this encounter Miscellaneous Notes * Plan of Care - Malia Mcintyre, RN - 02/11/2023 2:37 PM EST OUTCOME EVALUATION NOTE: OUTCOME SUMMARY: Received pt A&Ox4, Sinus bradycardia on tele, otherwise VSS on RA, denies chest pain/SOB, did report pain on flank area which resolved when she got up. Urine specimen sent, bladder scanned random= 99, post void = 0. Due meds given. Med education done. Discharge instructions given, pt verbalized understanding. 1545h - discharged in stable condition via wheelchair, A&Ox4, accompanied by daughter. CPG GOAL OUTCOME EVALUATION: Problem: Chest Pain Goal: Resolution of Chest Pain Symptoms Outcome: Outcome (s) achieved Problem: Dysrhythmia Goal: Normalized Cardiac Rhythm Outcome: Outcome (s) achieved Problem: Fall Injury Risk Goal: Absence of Fall and Fall-Related Injury Outcome: Outcome (s) achieved Problem: Adult Inpatient Plan of Care Goal: Plan of Care Review Outcome: Outcome (s) achieved Goal: Patient-Specific Goal (Individualized) Outcome: Outcome (s) achieved Goal: Absence of Hospital-Acquired Illness or Injury Outcome: Outcome (s) achieved Goal: Optimal Comfort and Wellbeing Outcome: Outcome (s) achieved Goal: Readiness for Transition of Care Outcome: Outcome (s) achieved * Consult Note - Anastasia Zaman RN - 02/11/2023 10:22 AM EST Loida Madrigal was seen today by Cardiac Rehabilitation for: NSTEMI Activity evaluation - Patient has been ambulating with nursing staff Educational packet regarding CAD, cardiac risk factors, and managing angina given to the patient. Reviewed managing angina /use of sl nitroglycerin. Mediterranean diet guidelines briefly reviewed. Given parameters for home exercise. Participation in an outpatient cardiac rehabilitation program at [facility] was discussed. Patient agrees to a referral to this program. The referral will be sent at discharge and the patient should be contacted by the Program within 1- 2 weeks from discharge. * Plan of Care - Zoila Bhatt RN - 02/11/2023 7:42 AM EST Problem: Chest Pain Goal: Resolution of Chest [...] Implemented as Appropriate) * Initial Assessments - Zoraida Tatum MSW - 02/10/2023 1:38 PM EST Office of Care Management Initial Assessment Medical record reviewed. Plan of care and patient status discussed with direct care Registered Nurse and/or Care Team in multidisciplinary rounds. Reason for Hospitalization: Chest Pain Last COVID test: Lab Results Component Value Date [id number] Not Detected 06/13/2021 Present on Admission: NSTEMI (non-ST elevated myocardial infarction) Hospitalizations Within the Past 30 Days: no previous admission in last 30 days Patient receiving hospital care under Inpatient status. Admission order reviewed. Health/Prescription Coverage: Primary Insurance: [employer] [facility] [place] Payor: [facility] [place] / Plan: [facility] [place] EXCHANGE / Product Type: *No Product type* / Secondary Insurance: N/A ; Prescription Coverage: Yes Preferred Pharmacy: [id number] - [place], [place] - [address] [facility] [address] [facility] - [place], [place] - [address] [facility] [address] Advance Care Planning: Attempt Cardiopulmonary Resuscitation - Inpatient <no information> -Advanced Directive: No, need to discuss (Referral sent to O[facility] - Copy Center Operator) Current Functional Ability: Independent Functional Status Prior to Admission: Independent Home Environment: Others in the home: spouse (Lives w/ (Boby)). Current Living Arrangements: home/apartment/condo. Accessibility Concerns:1.5 story home (steps w/ railings). 5-6 PANTERA home. No concerns. Current DME: respiratory supplies ([employer] ([employer])) [address] [facility] [id number] Social & Family Supports: All names listed below confirmed with patient as current and correct Extended Emergency Contact Information Primary Emergency Contact: Boby Madrigal Mobile Relation: Spouse Secondary Emergency Contact: TALI SHAH Relation: Mother Current Care Provided by: self Transportation: no concerns Transportation Anticipated: family or friend will provide (Tasha (daughter) will provide a ride) Assessment: Patient with no apparent RNCM/SW needs at this time. No housing, transportation, insurance, resources concerns identified at this time. Supports in place to achieve a safe post-hospital transition. No identified barriers to accessing necessary care and/or follow-up after discharge. Plan: Patient to d/c to home via Tasha aguayo, when medically ready. Registered Nurse Wet Process Head Miller / Shop Tech will continue to follow patient???s progress and remain available if situation changes for coordination of care, psychosocial support and/or discharge planning. Office of Care Management TASIA Melendez * Plan of Care - Opal Traore RN - 02/10/2023 1:24 PM EST OUTCOME EVALUATION NOTE: OUTCOME SUMMARY: AOx4. VSS on RA. NSR/sinus morgan. Ranolazine started today. Ambulated around unit and room. Safety rounding completed, nonskid socks when oob, call light within reach. PLAN MOVING FORWARD: D/c planning as appropriate CPG GOAL OUTCOME EVALUATION: Problem: Chest Pain Goal: Resolution of Chest [...] Appropriate) * Plan of Care - Zoila Bhatt RN - 02/10/2023 6:44 AM EST Problem: Chest Pain Goal: Resolution of Chest [...] as Appropriate) * Plan of Care - Opal Traore RN - 02/09/2023 2:27 PM EST OUTCOME EVALUATION NOTE: OUTCOME SUMMARY: AOx4. VSS on RA. Ambulated in cheney x6 and C/O 2/10 CP jaw pain, and pain up the arm while walking. Stating she felt very fatigued after. Team notified. Safety rounding check completed, call ghosh and personal belongings within reach, nonskid socks when OOB. PLAN MOVING FORWARD: D/C planning as appropriate CPG GOAL OUTCOME EVALUATION: Problem: Chest Pain Goal: Resolution of Chest [...] Appropriate) * Plan of Care - Zoila Bhatt RN - 02/09/2023 6:36 AM EST Pt admitted to [facility]U Room 467 for SOB & CP. Through the night, pt denies SOB & CP at rest however she does have some minimal CP with exertion. A&Ox4, on RA, SA/bradycardic on tele. Pt loaded with 600 mg Plavix. Heparin gtt infusing. Bedside echo & EKG done. Arias JOHN made aware of K2.9; repleted w/ 40mEq KCl Q4. NPO for LHC. Fall and safety precautions in placed. Hourly rounding ongoing. Problem: Chest Pain Goal: Resolution of Chest Pain Symptoms Outcome: Ongoing (Interventions Implemented as Appropriate) Problem: Dysrhythmia Goal: Normalized Cardiac Rhythm Outcome: Ongoing (Interventions Implemented as Appropriate) Problem: Fall Injury Risk Goal: Absence of Fall and Fall-Related Injury Outcome: Ongoing (Interventions Implemented as Appropriate) documented in this encounter Plan of Treatment Upcoming Encounters Date Type Department Care Team (Late st Contact Info) Description 10/08/2023 8:30 AM EDT Tech Visit Vascular Lab at [place] [phone] Jose Cook 10/08/2023 9:30 AM EDT Office Visit Vascular Surgery at [place] [phone] MD [facility] [place] [address] 10/21/2023 10:30 AM EDT Appointment Nuclear Medicine at [place] [phone] Mary Reyes [facility] [place] [address] 10/21/2023 11:30 AM EDT Appointment [place] [phone] Mary Reyes [facility] [place] [address] 10/21/2023 12:30 PM EDT Appointment [place] [phone] Mary Reyes [facility] [place] [address] 10/21/2023 1:30 PM EDT Appointment Nuclear Medicine at [place] [phone] Mary Reyes [facility] [place] [address] 10/21/2023 2:30 PM EDT Appointment [place] [phone] Mary Reyes, [facility] [place] [address] 10/26/2023 4:00 PM EDT Office Visit Cardiology at [address] [phone] Jaspreet Kinsey MD [facility] [place] [id number] 10/28/2023 9:00 AM EDT Office [place] [address] 10/29/2023 10:00 AM EDT Clinical [place] [address] 10/29/2023 10:15 AM EDT Procedure [place] [address] 11/01/2023 5:00 PM EDT Office Visit [place] [phone] Selene Browning, PhD [facility] [place] [address] 11/22/2023 4:40 PM EDT Office Visit Cardiology at [address] [phone] Porsha Mcdaniels MD [facility] [place] [address] 12/13/2023 10:00 AM EDT Clinical Support Gastroenterology at [facility] [place] [phone] [facility] [id number] documented as of this encounter Procedures Procedure Name Priority Date/Time Associated Diagnosis Comments URINALYSIS MICROSCOPIC EXAM Routine 02/11/2023 9:30 AM EST URINALYSIS WITH REFLEX CULTURE Routine 02/11/2023 9:30 AM EST URINE CULTURE Routine 02/11/2023 9:30 AM EST EKG 12-LEAD Routine 02/11/2023 6:07 AM EST Chest pain, unspecified type HEMOGRAM Routine 02/11/2023 3:41 AM EST DIFFERENTIAL, AUTOMATED Routine 02/11/2023 3:41 AM EST HC VENIPUNCTURE Routine 02/11/2023 3:41 AM EST HC MAGNESIUM, SERUM Routine 02/11/2023 3 :41 AM EST BASIC METABOLIC PANEL (NON-FASTING) Routine 02/11/2023 3:41 AM EST HEMOGRAM Routine 02/10/2023 3:46 AM EST DIFFERENTIAL, AUTOMATED Routine 02/10/2023 3:46 AM EST HC CBC,PLT & AUTO DIFF Routine 3:46 AM EST HC MAGNESIUM, SERUM Routine 02/10/2023 3 :46 AM EST BASIC METABOLIC PANEL (NON-FASTING) Routine 02/10/2023 3:46 AM EST HC POTASSIUM Routine 02/09/2023 2:46 PM EST ECHO LMTD W CONTRAST W LMTD SPEC DOPP COLOR DOPP Routine 02/09/2023 9:01 AM EST NSTEMI (non-ST elevated myocardial infarction) HC TROPONIN T STAT 02/09/2023 8:01 AM EST CRP, ACUTE INFLAMMATION Routine 02/09/2023 3:55 AM EST HC UNFRACTIONATED HEPARIN (HEP UFH) Timed 02/09/2023 3:55 AM EST HEMOGRAM Routine 02/09/2023 3:55 AM EST DIFFERENTIAL, AUTOMATED Routine 02/09/2023 3:55 AM EST SEDIMENTATION RATE Routine 02/09/2023 3: 55 AM EST HC CBC,PLT & AUTO DIFF Routine 3:55 AM EST HC MAGNESIUM, SERUM Routine 02/09/2023 3 :55 AM EST BASIC METABOLIC PANEL (NON-FASTING) Routine 02/09/2023 3:55 AM EST HC TROPONIN T Routine 02/08/2023 10:08 PM EST HEMOGRAM Routine 02/08/2023 10:08 PM EST DIFFERENTIAL, AUTOMATED Routine 02/08/2023 10:08 PM EST HC VENIPUNCTURE Routine 02/08/2023 10:08 PM EST HC THYROID STIMULATING HORMONE, SERUM Routine 02/08/2023 10:08 PM EST HC PROBNP Routine 02/08/2023 10:08 PM EST HC MAGNESIUM, SERUM Routine 02/08/2023 1 0:08 PM EST BASIC METABOLIC PANEL (NON-FASTING) Routine 02/08/2023 10:08 PM EST EKG 12-LEAD Routine 02/08/2023 6:38 PM EST documented in this encounter Results * (ABNORMAL) Urine culture (02/11/2023 9:30 AM EST) Pathologist [facility] Urine Culture 10,000-49,000 cfu/ml mixed mucosal elmer Note: Culture shows multiple bacterial species suggesting mucosal contamination. (A) [facility] Urine 02/11/2023 9:30 AM EST 02/11/2023 1:19 PM EST Narrative Resulting Agency Comment Spec In Lab Heidy Walker MD MICROBIOLOGY - GENER AL ORDERABLES Performing Organization Address [facility] Co de Phone Number [facility] [place] [address] * (ABNORMAL) Urinalysis Microscopic Exam (02/11/2023 9:30 AM EST) Pathologist [facility] RBC UA 1 0 - 4 /HPF [facility] WBC UA 29(H) 0 - 5 /HPF [facility] Bacteria UA Few(A) None /HPF [facility] Squam Epith UA 1 <=4 /HPF [facility] Trans Epith UA 2(H) <=1 /HPF [facility] Hyaline Cast UA 2 0 - 2 /LPF [facility] CaOx Mattie UA Moderate(A ) None /HPF [facility] Urine Urine / Unknown 02/11/2023 9 :30 AM EST 02/11/2023 10:33 AM EST Narrative Resulting Agency Comment Spec In Lab Heidy Walker MD URINE ORDERABLES Performing Organization Address [facility]/ZIP Co de Phone Number [facility] [place] [address] * (ABNORMAL) Urinalysis with reflex Culture (02/11/2023 9:30 AM EST) Pathologist [facility] Glucose UA 500(Critica l) Negative mg/dL [facility] Comment: Urinalysis result NOT critical without a combination of Glucose greater than or equal to 500 mg/dL AND Ketones greater than or equal to 80 mg/dL Protein UA Negative Negative mg/dL [facility] Bilirubin UA Negative Negative mg/dL [facility] Comment: Clinical correlation required for positive Urine Bilirubin results as false positive may occur with some drugs and drug related products. If a false positive is suspected a serum total bilirubin should be considered if clinically indicated. Urobilinogen UA Normal Normal mg/dL [facility] pH UA 5.5 5.0 - 8.0 [facility] Blood UA Negative Negative mg/dL [facility] Ketones UA Trace(A) Negative mg/dL [facility] Nitrite UA Negative Negative [facility] Leukocytes UA Moderate(A) Negative mcL [facility] Appearance UA Cloudy(A) Clear [facility] Spec [place] UA 1.029 1.005 - 1.030 [facility] Color UA Dark Yellow Yellow [facility] Culture Reflexed Yes [facility] Urine Urine / Unknown 02/11/2023 9 :30 AM EST 02/11/2023 10:32 AM EST Narrative Resulting Agency Comment Spec In Lab Heidy Walker MD URINE ORDERABLES [facility] [place] [address] * EKG 12 Lead (02/11/2023 6:07 AM EST) Ventricular rate 47 BPM MUSE SYSTEM Atrial Rate 47 BPM MUSE SYSTEM P-R Interval 200 ms MUSE SYSTEM QRS Duration 88 ms MUSE SYSTEM Q-T Interval 522 ms MUSE SYSTEM QTC Calculated (Bezet) 461 ms MUSE SYSTEM Calculated P [place] 36 degrees MUSE SYSTEM Calculated R [place] 48 degrees MUSE SYSTEM Calculated T [place] 12 degrees MUSE SYSTEM INTERPRETATION Sinus bradycardia Possible Left atrial enlargement Possible Lateral infarct (cited on or before 08-FEB-2023) Long QT interval Abnormal ECG When compared with ECG of 10-FEB-2023 11:44, No significant change was found I personally reviewed the tracing and edited the fellows interpretation Confirmed by fellow MD Rosalinda, Alejandro ([id number]) on 02/11/2023 2:15:46 PM Confirmed by Kai Haider ([id number]) on 02/11/2023 4:16:20 PM MUSE SYSTEM 02/11/2023 6:07 AM EST 02/11/2023 4:16 PM EST Itz Bhardwaj MD ECG ORDERABLES MUSE SYSTEM * Differential, Automated (02/11/2023 3:41 AM EST) Neutrophils % 53.9 % [facility] Neutr Abs (ANC) 3.50 1.70 - 6.10 x10(3)/[facility] Lymphocytes % 31.5 % [facility] Lymphocytes Abs 2.0 0.9 - 3.2 x10(3)/[facility] Monocytes % 8.9 % [facility] Monocyte Abs 0.6 0.3 - 0.9 x10(3)/[facility] Eosinophils % 4.9 % [facility] Eosinophils Abs 0.3 0.0 - 0.4 x10(3)/[facility] Basophils % 0.6 % [facility] Basophils Abs 0.0 0.0 - 0.1 x10(3)/[facility] Immature Gran % 0.20 % [facility] Comment: Immature granulocytes(IG's)percentage and absolute count will include metamyelocytes, myelocytes, and promyelocytes. Blood smears from CBCs yielding IG's will be scanned manually for concordance. If this scan disagrees with the automated IG or if promyelocytes are noted, a manual differential will be performed. Shonda Gran Abs 0.01 0.00 - 0.04 x10(3)/[facility] Blood 02/11/2023 3:41 AM EST 02/11/2023 4:01 AM EST Narrative Resulting Agency Comment Spec In Lab German Bianchi MD HEMATOLOGY ORDERABL ES [facility] [place] [address] * Hemogram (02/11/2023 3:41 AM EST) WBC 6.5 4.0 - 9.5 x10(3)/[facility] RBC 4.55 4.00 - 5.21 x10(6)/[facility] Hemoglobin 14.4 11.7 - 15.5 g/dL [facility] Hematocrit 42.9 35.7 - 45.8 % [facility] MCV 94.3 82.6 - 94.4 fL [facility] MCH 31.6 27.1 - 32.0 pg [facility] MCHC 33.6 31.7 - 35.0 g/dL [facility] Platelets 240 145 - 357 x10(3)/[facility] RDWSD 42.9 37.0 - 46.0 fL [facility] RDWCV 12.4 11.5 - 14.1 % [facility] MPV 11.0 7.6 - 12.9 fL [facility] nRBC % Auto 0.0 % [facility] nRBC Abs Auto 0.000 0.000 - 0.000 x10(3)/[facility] Blood 02/11/2023 3:41 AM EST 02/11/2023 4:01 AM EST Narrative Resulting Agency Comment Spec In Lab German Bianchi MD HEMATOLOGY ORDERABL ES Performing Organization Address [facility]/ZIP Co de Phone Number [facility] [place] [address] * Magnesium (02/11/2023 3:41 AM EST) Pathologist [facility] Magnesium 0.91 0.69 - 1.07 mmol/L [facility] Blood 02/11/2023 3:41 AM EST 02/11/2023 4:01 AM EST Narrative Resulting Agency Comment Spec In Lab Bobby Edmonds MD CHEMISTRY ORDERABLES Performing Organization Address [facility] Co de Phone Number [facility] [place] [address] * (ABNORMAL) Basic Metabolic Panel (non-fasting) (02/11/2023 3:41 AM EST) Pathologist [facility] Glucose Lvl 97 65 - 199 mg/dL [facility] Comment:Diabetes: >=200 mg/d L plus symptoms BUN 23(H) 8 - 18 mg/dL [facility] Creatinine 1.07 0.70 - 1.20 mg/dL [facility] Sodium 138 135 - 145 mmol/L [facility] Potassium 4.0 3.5 - 5.0 mmol/L [facility] Comment: Please note: ??Patients with WBC >100,000 may have falsely elevated Potassium levels. ??For accurate Potassium quantification in these patients send serum separator tube (gold top) for subsequent determinations. ??Contact the Clinical Chemistry Laboratory if there are any questions. Chloride 109(H) 98 - 107 mmol/L [facility] CO2 17(L) 22 - 31 mmol/L [facility] Anion Gap 12 5 - 15 mmol/L [facility] Calcium 9.1 8.5 - 10.5 mg/dL [facility] Estimated GFR 62 >=60 mL/min/1. 73 m?? [facility] Comment: This patient's [...] and symptoms in addition to eGFR. Blood 02/11/2023 3:41 AM EST 02/11/2023 4:01 AM EST Narrative Resulting Agency Comment Spec In Lab Bobby Edmonds MD CHEMISTRY ORDERABLES [facility] [place] [address] * Differential, Automated (02/10/2023 3:46 AM EST) Neutrophils % 59.8 % [facility] Neutr Abs (ANC) 4.01 1.70 - 6.10 x10(3)/[facility] Lymphocytes % 27.5 % [facility] Lymphocytes Abs 1.8 0.9 - 3.2 x10(3)/[facility] Monocytes % 8.5 % [facility] Monocyte Abs 0.6 0.3 - 0.9 x10(3)/[facility] Eosinophils % 3.7 % [facility] Eosinophils Abs 0.2 0.0 - 0.4 x10(3)/[facility] Basophils % 0.4 % [facility] Basophils Abs 0.0 0.0 - 0.1 x10(3)/[facility] Immature Gran % 0.10 % [facility] Comment: Immature granulocytes(IG's)percentage and absolute count will include metamyelocytes, myelocytes, and promyelocytes. Blood smears from CBCs yielding IG's will be scanned manually for concordance. If this scan disagrees with the automated IG or if promyelocytes are noted, a manual differential will be performed. Shonda Gran Abs 0.01 0.00 - 0.04 x10(3)/[facility] Blood 02/10/2023 3:46 AM EST 02/10/2023 4:12 AM EST Narrative Resulting Agency Comment Spec In Lab German Bianchi MD HEMATOLOGY ORDERABL ES [facility] [place] [address] * Hemogram (02/10/2023 3:46 AM EST) WBC 6.7 4.0 - 9.5 x10(3)/[facility] RBC 4.60 4.00 - 5.21 x10(6)/[facility] Hemoglobin 14.4 11.7 - 15.5 g/dL [facility] Hematocrit 42.2 35.7 - 45.8 % [facility] MCV 91.7 82.6 - 94.4 fL [facility] MCH 31.3 27.1 - 32.0 pg [facility] MCHC 34.1 31.7 - 35.0 g/dL [facility] Platelets 246 145 - 357 x10(3)/[facility] RDWSD 42.3 37.0 - 46.0 fL [facility] RDWCV 12.6 11.5 - 14.1 % [facility] MPV 11.1 7.6 - 12.9 fL [facility] nRBC % Auto 0.0 % [facility] nRBC Abs Auto 0.000 0.000 - 0.000 x10(3)/[facility] Blood 02/10/2023 3:46 AM EST 02/10/2023 4:12 AM EST Narrative Resulting Agency Comment Spec In Lab German Bianchi MD HEMATOLOGY ORDERABL ES Performing Organization Address City/[facility]/ZIP Co de Phone Number [facility] [place] [address] * Magnesium (02/10/2023 3:46 AM EST) Magnesium 1.01 0.69 - 1.07 mmol/L [facility] Blood 02/10/2023 3:46 AM EST 02/10/2023 4:12 AM EST Narrative Resulting Agency Comment Spec In Lab Bobby Edmonds MD CHEMISTRY ORDERABLES Performing Organization Address [facility] Co de Phone Number [facility] [place] [address] * (ABNORMAL) Basic Metabolic Panel (non-fasting) (02/10/2023 3:46 AM EST) Glucose Lvl 103 65 - 199 mg/dL [facility] Comment:Diabetes: >=200 mg/d L plus symptoms BUN 20(H) 8 - 18 mg/dL [facility] Creatinine 1.31(H) 0.70 - 1.20 mg/dL [facility] Sodium 141 135 - 145 mmol/L [facility] Potassium 3.4(L) 3.5 - 5.0 mmol/L [facility] Comment: Please note: ??Patients with WBC >100,000 may have falsely elevated Potassium levels. ??For accurate Potassium quantification in these patients send serum separator tube (gold top) for subsequent determinations. ??Contact the Clinical Chemistry Laboratory if there are any questions. Chloride 105 98 - 107 mmol/L [facility] CO2 23 22 - 31 mmol/L [facility] Anion Gap 13 5 - 15 mmol/L [facility] Calcium 9.2 8.5 - 10.5 mg/dL [facility] Estimated GFR 49(L) >=60 mL/min/1. 73 m?? [facility] Comment: This patient's [...] and symptoms in addition to eGFR. Blood 02/10/2023 3:46 AM EST 02/10/2023 4:12 AM EST Narrative Resulting Agency Comment Spec In Lab Bobby Edmonds MD CHEMISTRY ORDERABLES Performing Organization Address [facility] Co de Phone Number [facility] [place] [address] * Potassium (02/09/2023 2:46 PM EST) [facility] Potassium 4.0 3.5 - 5.0 mmol/L [facility] Comment: Please note: ??Patients with WBC >100,000 may have falsely elevated Potassium levels. ??For accurate Potassium quantification in these patients send serum separator tube (gold top) for subsequent determinations. ??Contact the Clinical Chemistry Laboratory if there are any questions. Blood 02/09/2023 2:46 PM EST 02/09/2023 2:58 PM EST Narrative Resulting Agency Comment Spec In Lab Itz Bhardwaj MD CHEMISTRY ORDERABL ES Performing Organization Address [facility] Co de Phone Number [facility] [place] [address] * ECHO LMTD W CONTRAST W LMTD SPEC DOPP COLOR DOPP (02/09/2023 9:01 AM EST) Anatomical Region Laterality Modality Cardiac Other 02/09/2023 8:19 AM EST Narrative 02/09/2023 9:39 AM EST [address] [place] [address] ? Echocardiogram Report Name: LOIDA MADRIGAL ? Study Date: 02/09/2023 08:19 AMBP: 98/57 mmHg ? Patient Location: [facility] : 1970 ? Height: 163 cm ? Account: [id number] Age: 52 yrs ? Weight: 99 kg Gender: Female ?BSA: 2.0 m2 Ordering Physician: BOBBY EDMONDS Referring Physician: AJ HARTMAN Performed By: Aaron Herr RDCS Reason For Study: NSTEMI (non-ST elevated myocardial infarction) Interpreting Fellow: Ciro Lovell. Exam Location: [facility]. Interpretation Summary Left ventricular systolic function is normal. The left ventricular ejection fraction is 59% by Reyes's biplane. There are segmental wall motion abnormalities present; the mid-anterior segment appears hypokinetic. The right ventricle is of normal size. Right ventricular systolic function is normal. Mild biatrial enlargement. No hemodynamically significant valvular disease. When compared to the prior study that was done by the on-call overnight manager army, there is no significant change in biventricular function. Procedure Limited - [address]. Image enhancement Definity was used for left ventricular opacification. Suboptimal quality. This study is limited because of body habitus. Bradycardia. Left Ventricle Left ventricle is of normal size. Wall thickness is normal. Left ventricular systolic function is normal. The left ventricular ejection fraction is 59% by Reyes's biplane. There are segmental wall motion abnormalities. Right Ventricle The right ventricle is of normal size. Right ventricular systolic function is normal. Left Atrium The left atrium is mildly dilated. LAESV Index 40 ml/m2. There is no evidence for a patent foramen ovale. Right Atrium The right atrium is mildly dilated. Aortic Valve The aortic valve is tricuspid. There is no aortic stenosis. There is no aortic regurgitation. Mitral Valve The mitral valve is structurally normal. There is no mitral stenosis. There is mild mitral regurgitation. Tricuspid Valve The tricuspid valve is structurally normal. There is no tricuspid stenosis. There is trace tricuspid regurgitation. Pulmonic Valve The pulmonic valve appears to be structurally normal. There is no valvular pulmonic stenosis. There is trace pulmonic valve regurgitation. Venous Inferior vena cava is normal in size. Inferior vena cava collapse greater than 50% with respiration. Pericardium/Pleural The pericardium appears normal. Epicardial fat is present. Hemodynamics Pulmonary artery hypertension could not be assessed due to inadequate tricuspid regurgitation jet. The estimated right atrial pressure is 3mmHg. Left ventricular diastolic function is abnormal. Ejection Fraction ?2D Measurements ? Volumes EF(MOD-bp): 58.5 % ?IVSd: 0.96 cm ?LAV(MOD- bp) Indexed: ?LVIDd: 5.2 cm ?40.0 ml/m2 ?LVIDs: 3.4 cm ?LVPWd: 0.94 cm ? RA A4Cs_phl: 19.5 cm2 ?LV mass(C)d: 180.1 grams ? EDV(MOD- bp) Indexed: ? 48.6 ml/m2 ?LV mass(C)dI: 88.5 grams/m2 ?ESV(MOD- bp) Indexed: ?TAPSE_phl: 2.0 cm ? 20.2 ml/m2 Doppler MV E max ilir: 42.1 cm/sec Lat Peak E' Ilir: 5.4 cm/sec E/ e' (lat): 7.9 Med Peak E' Ilir: 3.8 cm/sec E/e' (med): 11.0 E/e' Average: 9.4 I ?WMSI = 1.06 ? % Normal = 94 ?Segments ??Size X - Cannot ?? 1 - Normal ?? 2 - ? 3 - Akinetic 4 - ?1-2 ? small Interpret ? Hypokinetic ?Dyskinetic ?? 3-5 ? moderate 5 - ? 6-14 ?large Aneurysmal ?15-16 ?? diffuse Procedure Note Manish Benitez MD - 02/09/2023 [address] [place] [address] Echocardiogram Report Name: LOIDA MADRIGAL Study Date: 308:19 AMBP: 98/57 mmHg Patient Location: [address] : 1970 Height: 163 cm Account: [id number] Age: 52 yrs Weight: 99 kg Gender: Female BSA: 2.0 m2 Ordering Physician: BOBBY EDMONDS Referring Physician: AJ HARTMAN Performed By: Aaron Herr RDCS Reason For Study: NSTEMI (non-ST elevated myocardial infarction) Interpreting Fellow: Ciro Lovell. Exam Location: [facility]. Interpretation Summary Left ventricular systolic function is normal. The left ventricularejection fraction is 59% by Reyes's biplane. There are segmental wall motion abnormalities present; the mid-anterior segment appears hypokinetic. The right ventricle is of normal size. Right ventricular systolic functionis normal. Mild biatrial enlargement. No hemodynamically significant valvular disease. When compared to the prior study that was done by the on-call overnightcardiology fellow, there is no significant change in biventricular function. Procedure Limited - 96[address]. Image enhancement Definity was used for leftventricular opacification. Suboptimal quality. This study is limited because of bodyhabitus. Bradycardia. Left Ventricle Left ventricle is of normal size. Wall thickness is normal. Leftventricular systolic function is normal. The left ventricular ejection fraction is 59%by Reyes's biplane. There are segmental wall motion abnormalities. Right Ventricle The right ventricle is of normal size. Right ventricular systolic functionis normal. Left Atrium The left atrium is mildly dilated. LAESV Index 40 ml/m2. There is noevidence for a patent foramen ovale. Right Atrium The right atrium is mildly dilated. Aortic Valve The aortic valve is tricuspid. There is no aortic stenosis. There is noaortic regurgitation. Mitral Valve The mitral valve is structurally normal. There is no mitral stenosis.There is mild mitral regurgitation. Tricuspid Valve The tricuspid valve is structurally normal. There is no tricuspidstenosis. There is trace tricuspid regurgitation. Pulmonic Valve The pulmonic valve appears to be structurally normal. There is novalvular pulmonic stenosis. There is trace pulmonic valve regurgitation. Venous Inferior vena cava is normal in size. Inferior vena cava collapse greaterthan 50% with respiration. Pericardium/Pleural The pericardium appears normal. Epicardial fat is present. Hemodynamics Pulmonary artery hypertension could not be assessed due to inadequatetricuspid regurgitation jet. The estimated right atrial pressure is 3mmHg. Leftventricular diastolic function is abnormal. Ejection Fraction 2D Measurements Volumes EF(MOD-bp): 58.5 % IVSd: 0.96 cm LAV(MOD-bp)Indexed: LVIDd: 5.2 cm 40.0 ml/m2 LVIDs: 3.4 cm LVPWd: 0.94 cm RA A4Cs_phl: 19.5cm2 LV mass(C)d: 180.1 grams EDV(MOD-bp)Indexed: 48.6 ml/m2 LV mass(C)dI: 88.5 grams/m2 ESV(MOD-bp)Indexed: TAPSE_phl: 2.0 cm 20.2 ml/m2 Doppler MV E max ilir: 42.1 cm/sec Lat Peak E' Ilir: 5.4 cm/sec E/ e' (lat): 7.9 Med Peak E' Ilir: 3.8 cm/sec E/e' (med): 11.0 E/e' Average: 9.4 I WMSI = 1.06 % Normal = 94 SegmentsSize X - Cannot 1 - Normal 2 - 3 - Akinetic 4 - 1-2small Interpret Hypokinetic Dyskinetic 3-5moderate 5 - 6-14large Aneurysmal 15-16diffuse Bobby Edmonds MD ECHO ORDERABLES * (ABNORMAL) Troponin (02/09/2023 8:01 AM EST) Troponin-T HS 27(H) <=14 ng/L [facility] [...] troponin value can be found in the [facility] Test Catalog Troponin - [facility] Test Catalog Reference: Fourth [place] Definition of Myocardial Infarction. Journal of the [place] [employer] 2018;72:5018-9372 Blood 02/09/2023 8:01 AM EST 02/09/2023 8:06 AM EST Narrative Resulting Agency Comment Spec In Lab Itz Bhardwaj MD CHEMISTRY ORDERABL ES Performing Organization Address [facility] Co de Phone Number [facility] [place] [address] * CRP, acute inflammation (02/09/2023 3:55 AM EST) CRP <3.0 <=4.9 mg/L [facility] Blood Venous Draw / Unknown 02/09/2023 3:55 AM EST 02/09/2023 4:07 AM EST Narrative Resulting Agency Comment Spec In Lab Grady Metcalf MD CHEMISTRY ORDERABLES Performing Organization Address [facility] de Phone Number [facility] [place] [address] * Sedimentation rate (02/09/2023 3:55 AM EST) Sed Rate 15 2 - 39 mm/hr [facility] Comment: Effective February 15, 2019 new capillary photometric technology has resulted in a change in reference ranges. It is recommended that each ESR result be reviewed with its own age appropriate reference range. Blood Venous Draw / Unknown 02/09/2023 3:55 AM EST 02/09/2023 4:06 AM EST Narrative Resulting Agency Comment Spec In Lab Grady Metcalf MD HEMATOLOGY ORDERABLE S Performing Organization Address [facility] Co de Phone Number [facility] [place] [address] * Differential, Automated (02/09/2023 3:55 AM EST) Neutrophils % 54.3 % [facility] Neutr Abs (ANC) 3.66 1.70 - 6.10 x10(3)/mcL [facility] Lymphocytes % 32.4 % [facility] Lymphocytes Abs 2.2 0.9 - 3.2 x10(3)/[facility] Monocytes % 8.3 % [facility] Monocyte Abs 0.6 0.3 - 0.9 x10(3)/[facility] Eosinophils % 4.1 % [facility] Eosinophils Abs 0.3 0.0 - 0.4 x10(3)/[facility] Basophils % 0.6 % [facility] Basophils Abs 0.0 0.0 - 0.1 x10(3)/[facility] Immature Gran % 0.30 % [facility] Comment: Immature granulocytes(IG's)percentage and absolute count will include metamyelocytes, myelocytes, and promyelocytes. Blood smears from CBCs yielding IG's will be scanned manually for concordance. If this scan disagrees with the automated IG or if promyelocytes are noted, a manual differential will be performed. Shonda Gran Abs 0.02 0.00 - 0.04 x10(3)/[facility] Blood 02/09/2023 3:55 AM EST 02/09/2023 4:06 AM EST Narrative Resulting Agency Comment Spec In Lab German Bianchi MD HEMATOLOGY ORDERABL ES Performing Organization Address City/State/[facility] Co de Phone Number [facility] [place] [address] * Hemogram (02/09/2023 3:55 AM EST) WBC 6.8 4.0 - 9.5 x10(3)/[facility] RBC 4.53 4.00 - 5.21 x10(6)/[facility] Hemoglobin 14.2 11.7 - 15.5 g/dL [facility] Hematocrit 41.2 35.7 - 45.8 % [facility] MCV 90.9 82.6 - 94.4 fL [facility] MCH 31.3 27.1 - 32.0 pg [facility] MCHC 34.5 31.7 - 35.0 g/dL [facility] Platelets 237 145 - 357 x10(3)/[facility] RDWSD 41.1 37.0 - 46.0 fL [facility] RDWCV 12.4 11.5 - 14.1 % [facility] MPV 11.2 7.6 - 12.9 [facility] nRBC % Auto 0.0 % [facility] nRBC Abs Auto 0.000 0.000 - 0.000 x10(3)/[facility] Blood 02/09/2023 3:55 AM EST 02/09/2023 4:06 AM EST Narrative Resulting Agency Comment Spec In Lab German Bianchi MD HEMATOLOGY ORDERABL ES [facility] [place] [id number] * (ABNORMAL) Heparin (unfractionated) Level (02/09/2023 3:55 AM EST) Heparin UFH Level 1.44(Crit ical) IU/mL [facility] Comment: Critical Result called by ?? HERMILO CRITICAL Results read back by: ? ZOILA BHATT at 2023-02-09 04:33:01 Heparin (anti-Xa) levels should be determined in [...] cardiac surgery): 0.1 ? 0.3 IU/mL Blood 02/09/2023 3:55 AM EST 02/09/2023 4:06 AM EST Narrative Resulting Agency Comment Spec In Lab Bobby Edmonds MD HEMATOLOGY ORDERABLE S Performing Organization Address [facility] Co de Phone Number [facility] [place] [address] * Magnesium (02/09/2023 3:55 AM EST) Magnesium 1.04 0.69 - 1.07 mmol/L [facility] Blood 02/09/2023 3:55 AM EST 02/09/2023 4:06 AM EST Narrative Resulting Agency Comment Spec In Lab Bobby Edmonds MD CHEMISTRY ORDERABLES Performing Organization Address [facility] Co de Phone Number [facility] [place] [address] * (ABNORMAL) Basic Metabolic Panel (non-fasting) (02/09/2023 3:55 AM EST) Glucose Lvl 103 65 - 199 mg/dL [facility] Comment:Diabetes: >=200 mg/d L plus symptoms BUN 19(H) 8 - 18 mg/dL [facility] Creatinine 1.13 0.70 - 1.20 mg/dL [facility] Sodium 142 135 - 145 mmol/L [facility] Comment:result rechecked- Potassium 2.9(Criti edy) 3.5 - 5.0 mmol/L [facility] Comment: Called by: , Read back by: Zoila Bhatt, Date/Time:02/09/23 04:43. Please note: ??Patients with WBC >100,000 may have falsely elevated Potassium levels. ??For accurate Potassium quantification in these patients send serum separator tube (gold top) for subsequent determinations. ??Contact the Clinical Chemistry Laboratory if there are any questions. Chloride 103 98 - 107 mmol/L [facility] Comment:result rechecked-GH CO2 24 22 - 31 mmol/L [facility] Comment:result rechecked-GH Anion Gap 15 5 - 15 mmol/L [facility] Calcium 9.4 8.5 - 10.5 mg/dL [facility] Estimated GFR 58(L) >=60 mL/min/1. 73 m?? [facility] Comment: This patient's [...] and symptoms in addition to eGFR. Blood 02/09/2023 3:55 AM EST 02/09/2023 4:06 AM EST Narrative Resulting Agency Comment Spec In Lab Bobby Edmonds MD CHEMISTRY ORDERABLES [facility] [place] [address] * Differential, Automated (02/08/2023 10:08 PM EST) Neutrophils % 55.7 % [facility] Neutr Abs (ANC) 4.29 1.70 - 6.10 x10(3)/[facility] Lymphocytes % 33.0 % [facility] Lymphocytes Abs 2.5 0.9 - 3.2 x10(3)/[facility] Monocytes % 7.7 % [facility] Monocyte Abs 0.6 0.3 - 0.9 x10(3)/[facility] Eosinophils % 2.9 % [facility] Eosinophils Abs 0.2 0.0 - 0.4 x10(3)/[facility] Basophils % 0.6 % [facility] Basophils Abs 0.0 0.0 - 0.1 x10(3)/[facility] Immature Gran % 0.10 % [facility] Comment: Immature granulocytes(IG's)percentage and absolute count will include metamyelocytes, myelocytes, and promyelocytes. Blood smears from CBCs yielding IG's will be scanned manually for concordance. If this scan disagrees with the automated IG or if promyelocytes are noted, a manual differential will be performed. Shonda Gran Abs 0.01 0.00 - 0.04 x10(3)/[facility] Blood 02/08/2023 10:0 8 PM EST 02/08/2023 10:18 PM EST Narrative Resulting Agency Comment Spec In Lab German Bianchi MD HEMATOLOGY ORDERABL ES [facility] [place] [address] * (ABNORMAL) Hemogram (02/08/2023 10:08 PM EST) WBC 7.7 4.0 - 9.5 x10(3)/[facility] RBC 4.93 4.00 - 5.21 x10(6)/[facility] Hemoglobin 15.6(H) 11.7 - 15.5 g/dL [facility] Hematocrit 46.9(H) 35.7 - 45.8 % [facility] MCV 95.1(H) 82.6 - 94.4 fL [facility] MCH 31.6 27.1 - 32.0 pg [facility] MCHC 33.3 31.7 - 35.0 g/dL [facility] Platelets 201 145 - 357 x10(3)/[facility] RDWSD 45.0 37.0 - 46.0 fL [facility] RDWCV 12.8 11.5 - 14.1 % [facility] MPV 11.3 7.6 - 12.9 fL [facility] nRBC % Auto 0.0 % [facility] nRBC Abs Auto 0.000 0.000 - 0.000 x10(3)/mcL [facility] Blood 02/08/2023 10:0 8 PM EST 02/08/2023 10:18 PM EST Narrative Resulting Agency Comment Spec In Lab German Bianchi MD HEMATOLOGY ORDERABL ES [facility] [place] [address] * (ABNORMAL) Troponin (02/08/2023 10:08 PM EST) Troponin-T HS 23(H) <=14 ng/L [facility] [...] troponin value can be found in the [facility] Test Catalog Troponin - [facility] Test Catalog Reference: Fourth [place] Definition of Myocardial Infarction. Journal of the [place] [employer] 2018;72:9378-4669 Blood 02/08/2023 10:0 8 PM EST 02/08/2023 10:18 PM EST Narrative Resulting Agency Comment Spec In Lab Bobby Edmonds MD CHEMISTRY ORDERABLES Performing Organization Address City/[facility] Co de Phone Number [facility] [place] [address] * (ABNORMAL) Magnesium (02/08/2023 10:08 PM EST) Magnesium 1.15(H) 0.69 - 1.07 mmol/L [facility] Blood 02/08/2023 10:0 8 PM EST 02/08/2023 10:18 PM EST Narrative Resulting Agency Comment Spec In Lab Bobby Edmonds MD CHEMISTRY ORDERABLES Performing Organization Address [facility] Co de Phone Number [facility] [place] [address] * (ABNORMAL) Basic Metabolic Panel (non-fasting) (02/08/2023 10:08 PM EST) Glucose Lvl 106 65 - 199 mg/dL [facility] Comment:Diabetes: >=200 mg/d L plus symptoms BUN 17 8 - 18 mg/dL [facility] Creatinine 0.96 0.70 - 1.20 mg/dL [facility] Sodium 151(H) 135 - 145 mmol/L [facility] Potassium 3.4(L) 3.5 - 5.0 mmol/L [facility] Comment: Please note: ??Patients with WBC >100,000 may have falsely elevated Potassium levels. ??For accurate Potassium quantification in these patients send serum separator tube (gold top) for subsequent determinations. ??Contact the Clinical Chemistry Laboratory if there are any questions. Chloride 91(L) 98 - 107 mmol/L [facility] CO2 12(L) 22 - 31 mmol/L [facility] Anion Gap 48(H) 5 - 15 mmol/L [facility] Calcium 8.9 8.5 - 10.5 mg/dL [facility] Estimated GFR 71 >=60 mL/min/1. 73 m?? [facility] Comment: This patient's [...] and symptoms in addition to eGFR. Blood 02/08/2023 10:0 8 PM EST 02/08/2023 10:18 PM EST Narrative Resulting Agency Comment Spec In Lab Bobby Edmonds MD CHEMISTRY ORDERABLES Performing Organization Address City/[facility]/ZIP Co de Phone Number [facility] [place] [address] * (ABNORMAL) pro-Brain Natriuretic Peptide (02/08/2023 10:08 PM EST) ProBNP 850(H) <=124 pg/mL [facility] Blood 02/08/2023 10:0 8 PM EST 02/08/2023 10:18 PM EST Narrative Resulting Agency Comment Spec In Lab Bobby Edmonds MD CHEMISTRY ORDERABLES Performing Organization Address City/[facility]/ZIP Co de Phone Number [facility] [place] [address] * TSH (02/08/2023 10:08 PM EST) TSH 4.00 0.27 - 4.20 mcIU/mL [facility] Comment: Reference Interval (mcIU/mL): Females: ??First Trimester: 0.23-3.88 ??Second Trimester: 0.22-3.90 ??Third Trimester: 0.44-4.66 Blood 02/08/2023 10:0 8 PM EST 02/08/2023 10:18 PM EST Narrative Resulting Agency Comment Spec In Lab Bobby Edmonds MD CHEMISTRY ORDERABLES [facility] [place] [id number] * EKG 12 Lead (02/08/2023 6:38 PM EST) Ventricular rate 56 BPM MUSE SYSTEM Atrial Rate 56 BPM MUSE SYSTEM P-R Interval 182 ms MUSE SYSTEM QRS Duration 88 ms MUSE SYSTEM Q-T Interval 498 ms MUSE SYSTEM QTC Calculated (Bezet) 480 ms MUSE SYSTEM Calculated P [place] 27 degrees MUSE SYSTEM Calculated R [place] 40 degrees MUSE SYSTEM Calculated T [place] 15 degrees MUSE SYSTEM INTERPRETATION Sinus bradycardia Possible Lateral infarct , age undetermined ST & T wave abnormality, consider inferior ischemia Abnormal ECG When compared with ECG of 17-NOV-2022 09:19, T wave inversion less evident in Inferior leads Nonspecific T wave abnormality, improved in Anterolateral leads QT has lengthened Confirmed by MD NAILA, KAUSHIK ([id number]) on 02/09/2023 2:20:32 PM MUSE SYSTEM 02/08/2023 6:38 PM EST 02/09/2023 2:20 PM EST Unknown ECG ORDERABLES Performing Organization Address [facility] Co de Phone Number MUSE SYSTEM documented in this encounter Visit Diagnoses Diagnosis Chest pain, unspecified type NSTEMI (non-ST elevated [...] MAR Action Action Date Dose Rate Site apixaban (Eliquis) tablet 5 mg 5 mg, Oral, 2 TIMES DAILY, First dose on Wed02/09/23 at 2100, Until Discontinued, Anticoagulant, Routine, Restricted anticoagulant, choose the most appropriate response: Appoved indication of DVT and/or PE Given 02/11/2023 8:58 AM EST 5 mg Given 02/10/2023 9:11 PM EST 5 mg Given 02/10/2023 9:00 AM EST 5 mg atorvastatin (Lipitor) tablet 80 mg 80 mg, Oral, EVERY EVENING, First dose on Wed02/09/23 at 1700, Until Discontinued, Routine Given 02/10/2023 9:11 PM EST 80 mg Given 02/09/2023 9:03 PM EST 80 mg bumetanide (Bumex) tablet 2 mg 2 mg, Oral, 2 TIMES DAILY, First dose on Wed02/09/23 at 1000, Until Discontinued, Routine Given 02/10/2023 9:00 AM EST 2 mg Given 02/09/2023 9:03 PM EST 2 mg Given 02/09/2023 9:37 AM EST 2 mg clopidogreL (Plavix) tablet 600 mg 600 mg, Oral, ONCE, 1 dose, On Wed02/08/23 at 2300, Routine Given 02/08/2023 10:35 PM EST [address] (Cymbalta) capsule 60 mg 60 mg, Oral, DAILY, First dose on Wed02/09/23 at 0900, Until Discontinued, Routine Given 02/10/2023 9:11 PM EST 60 mg Given 02/09/2023 9:04 PM EST 60 mg Given 02/08/2023 10:05 PM EST 60 mg gabapentin (Neurontin) capsule 600 mg 600 mg, Oral, NIGHTLY, First dose on Wed02/09/23 at 2100, Until Discontinued, Routine Given 02/10/2023 9:11 PM EST 600 mg Given 02/09/2023 9:03 PM EST 600 mg Given 02/08/2023 10:06 PM EST 600 mg heparin (porcine) (1,000 units/mL) injection 4,000 Units 4,000 Units, Intravenous, ONCE, 1 dose, On Wed02/08/23 at 2300, INITIAL LOADING DOSE Maximum loading dose 4,000 units, Routine Given 02/08/2023 10:23 PM EST 4,000 Units heparin (porcine) 50 units/mL in dextrose 5% 500 mL infusion 0-5,000 Units/hr (0-100 mL/hr), Intravenous, CONTINUOUS, Starting on Wed02/08/23 at 2300, Until Wed02/09/23 at 0957, Begin infusion at 1,000 units per hr [...] Heparin UFH Level - Per Protocol, Routine Restarted 02/09/2023 5:36 AM EST 700 Units/hr 14 mL/hr New Bag 02/08/2023 10:23 PM EST 1,000 Units/hr 20 mL/hr melatonin tablet 6 mg 6 mg, Oral, NIGHTLY, First dose on Wed02/08/23 at 2215, Until Discontinued Given 02/10/2023 9:11 PM EST 6 mg Given 02/09/2023 9:03 PM EST 6 mg Given 02/08/2023 10:05 PM EST 6 mg nitroGLYcerin (Nitrostat) disintegrating tablet 0.4 mg 0.4 mg, Sublingual, EVERY 5 MIN PRN, Starting on Wed02/08/23 at 1836, Until Aura 02/11/23 at 1807, Chest pain, May repeat every 5 minutes for a total of three doses. Notify provider if chest pain not relieved with nitroglycerin. Do not administer nitroglycerin if the patient has received or taken phosphodiesterase (PDE-5) inhibitors such as sildenafil, tadalafil or vardenafil within the last 24 to 72 hours., Routine Given 02/10/2023 8:58 AM EST 0.4 mg Given 02/09/2023 7:45 PM EST 0.4 mg perflutren lipid microspheres (Definity) injection 1.2 mL 1.2 mL, Intravenous, ONCE PRN, 1 dose, Starting on Wed02/09/23 at 0901, Until Wed02/09/23 at 0901, Other, Routine Given 02/09/2023 9:01 AM EST 1.2 mLs potassium chloride ER (Klor-Con M) crystal tablet 40 mEq 40 mEq, Oral, EVERY 4 HOURS, 3 doses, First dose (after last modification) on Wed02/09/23 at 0615, Last dose on Wed02/09/23 at 1415, potassium chloride ER particle/crystal tablets (Klor-Con M) may be broken in half and each half swallowed separately. Tablets can be dissolved in ~4 ounces of water; allow ~2 minutes to dissolve, stir well and drink immediately. Do not crush, chew, or suck on tablet., Routine Given 02/09/2023 2:02 PM EST 40 mEq Given 02/09/2023 9:37 AM EST 40 mEq Given 02/09/2023 5:35 AM EST 40 mEq potassium chloride ER (Klor-Con M) crystal tablet 40 mEq 40 mEq, Oral, EVERY 4 HOURS, 2 doses, First dose on Wed02/10/23 at 0615, Last dose on Wed02/10/23 at 1015, potassium chloride ER particle/crystal tablets (Klor-Con M) may be broken in half and each half swallowed separately. Tablets can be dissolved in ~4 ounces of water; allow ~2 minutes to dissolve, stir well and drink immediately. Do not crush, chew, or suck on tablet., Routine Given 02/10/2023 10:23 AM EST 40 mEq Given 02/10/2023 5:31 AM EST 40 mEq ranolazine ER (Ranexa) tablet 500 mg 500 mg, Oral, 2 TIMES DAILY, First dose on Wed02/10/23 at 1130, Until Discontinued, DO NOT CRUSH OR OPEN. Baseline EKG required before administration., Routine, Has baseline EKG been obtained? Yes Given 02/11/2023 9:01 AM EST 500 mg Given 02/10/2023 9:11 PM EST 500 mg Given 02/10/2023 12:01 PM EST 500 mg rOPINIRole (Requip) tablet 2 mg 2 mg, Oral, USER SPECIFIED (2 times per day), First dose on Wed02/08/23 at 2200, Until Discontinued, Routine Given 02/10/2023 9:11 PM EST 2 mg Given 02/10/2023 4:07 PM EST 2 mg Given 02/09/2023 9:03 PM EST 2 mg sodium chloride 0.9 % (flush) (BD PosiFlush Normal Saline 0.9) flush 5 mL 5 mL, Intravenous, 2 TIMES DAILY, First dose on Wed02/08/23 at 2215, Until Discontinued, Routine Given 02/11/2023 8:59 AM EST 5 mLs Given 02/10/2023 9:12 PM EST 5 mLs Given 02/10/2023 9:02 AM EST 5 mLs spironolactone (Aldactone) tablet 25 mg 25 mg, Oral, DAILY, First dose on Wed02/09/23 at 1015, Until Discontinued, DO NOT SPLIT, CRUSH OR OPEN, Routine Given 02/11/2023 8:58 AM EST 25 mg Given 02/10/2023 9:00 AM EST 25 mg Given 02/09/2023 9:37 AM EST 25 mg topiramate (Topamax) tablet 100 mg 100 mg, Oral, NIGHTLY, First dose on Wed02/09/23 at 2100, Until Discontinued, Routine Given 02/10/2023 9:11 PM EST 100 mg Given 02/09/2023 9:03 PM EST 100 mg Given 02/08/2023 10:05 PM EST 100 mg torsemide (Demadex) tablet 20 mg 20 mg, Oral, DAILY, First dose on Wed02/11/23 at 0900, Until Discontinued, Routine Given 02/11/2023 8:58 AM EST 20 mg documented in this encounter Active and Recently Administered Medications Times are shown in EST. Scheduled Medication Order 02/09/2023 02/10/2023 02/11/2023 apixaban (Eliquis) tablet 5 mg 5 mg, Oral, 2 TIMES DAILY, First dose on Wed02/09/23 at 2100, Until Discontinued, Anticoagulant, Routine, Restricted anticoagulant, choose the most appropriate response: Appoved indication of DVT and/or PE 2103 (Given - Provider: Zoila Bhatt RN) 899 (Given - Provider: Opal Traore RN)2110 (Given - Provider: Zoila Bhatt, ERWIN) 08 (Given - Provider: Malia Mcintyre RN) atorvastatin (Lipitor) tablet 80 mg 80 mg, Oral, EVERY EVENING, First dose on Wed02/09/23 at 1700, Until Discontinued, Routine 2102 (Given - Provider: Zoila Bhatt RN) 2110 (Given - Provider: Zoila Bhatt, ERWIN) bumetanide (Bumex) tablet 2 mg (CANCELED) 2 mg, Oral, 2 TIMES DAILY, First dose on Wed02/09/23 at 1000, Until Discontinued, Routine 09 (Given - Provider: Opal Traore, ERWIN)2102 (Given - Provider: Zoila Bhatt RN) 09 (Given - Provider: Opal Traore, ERWIN) DULoxetine DR (Cymbalta) capsule 60 mg 60 mg, Oral, DAILY, First dose on Wed02/09/23 at 0900, Until Discontinued, Routine 2103 (Given - Provider: Zoila Bhatt RN) 2110 (Given - Provider: Zoila Bhatt, ERWIN) gabapentin (Neurontin) capsule 600 mg 600 mg, Oral, NIGHTLY, First dose on Wed02/09/23 at 2100, Until Discontinued, Routine 2102 (Given - Provider: Zoila Bhatt, ERWIN) 2110 (Given - Provider: Zoila Bhatt, ERWIN) melatonin tablet 6 mg 6 mg, Oral, NIGHTLY, First dose on Wed02/08/23 at 2215, Until Discontinued 2102 (Given - Provider: Zoila Bhatt RN) 2110 (Given - Provider: Zoila Bhatt RN) potassium chloride ER (Klor-Con M) crystal tablet 40 mEq (COMPLETED) 40 mEq, Oral, EVERY 4 HOURS, 3 doses, First dose (after last modification) on Wed02/09/23 at 0615, Last dose on Wed02/09/23 at 1415, potassium chloride ER particle/crystal tablets (Klor-Con M) may be broken in half and each half swallowed separately. Tablets can be dissolved in ~4 ounces of water; allow ~2 minutes to dissolve, stir well and drink immediately. Do not crush, chew, or suck on tablet., Routine 0535 (Given - Provider: Zoila Bhatt RN)0937 (Given - Provider: Opal Traore RN)1402 (Given - Provider: Opal Traore RN) potassium chloride ER (Klor-Con M) crystal tablet 40 mEq (COMPLETED) 40 mEq, Oral, EVERY 4 HOURS, 2 doses, First dose on Wed02/10/23 at 0615, Last dose on Wed02/10/23 at 1015, potassium chloride ER particle/crystal tablets (Klor-Con M) may be broken in half and each half swallowed separately. Tablets can be dissolved in ~4 ounces of water; allow ~2 minutes to dissolve, stir well and drink immediately. Do not crush, chew, or suck on tablet., Routine 0531 (Given - Provider: Zoila Bhatt RN)1023 (Given - Provider: Oapl Traore RN) ranolazine ER (Ranexa) tablet 500 mg 500 mg, Oral, 2 TIMES DAILY, First dose on Wed02/10/23 at 1130, Until Discontinued, DO NOT CRUSH OR OPEN. Baseline EKG required before administration., Routine, Has baseline EKG been obtained? Yes 120 (Given - Provider: Opal Traore RN)2110 (Given - Provider: Zoila Bhatt RN) 900 (Given - Provider: Malia Mcintyre RN) rOPINIRole (Requip) tablet 2 mg 2 mg, Oral, USER SPECIFIED (2 times per day), First dose on Wed02/08/23 at 2200, Until Discontinued, Routine 1538 (Given - Provider: Opal Traore RN)2102 (Given - Provider: Zoila Bhatt RN) 160 (Given - Provider: Opal Traore RN)2110 (Given - Provider: Zoila Bhatt RN) sodium chloride 0.9 % (flush) (BD PosiFlush Normal Saline 0.9) flush 5 mL 5 mL, Intravenous, 2 TIMES DAILY, First dose on Wed02/08/23 at 2215, Until Discontinued, Routine 0942 (Given - Provider: Opal Traore RN)210 (Given - Provider: Zoila Bhatt RN) 09 (Given - Provider: Opal Traore RN)2111 (Given - Provider: Zoila Bhatt RN) 0859 (Given - Provider: Malia Mcintyre, ERWIN) spironolactone (Aldactone) tablet 25 mg 25 mg, Oral, DAILY, First dose on Wed02/09/23 at 1015, Until Discontinued, DO NOT SPLIT, CRUSH OR OPEN, Routine 0937 (Given - Provider: Opal Traore, ERWIN) 09 (Given - Provider: Opal Traore RN) 0858 (Given - Provider: Malia Mcintyre, ERWIN) topiramate (Topamax) tablet 100 mg 100 mg, Oral, NIGHTLY, First dose on Wed02/09/23 at 2100, Until Discontinued, Routine 2102 (Given - Provider: Zoila Bhatt RN) 2110 (Given - Provider: Zoila Bhatt RN) torsemide (Demadex) tablet 20 mg 20 mg, Oral, DAILY, First dose on Wed02/11/23 at 0900, Until Discontinued, Routine 0858 (Given - Provider: Malia Mcintyre RN) Continuous Medication Order 02/09/2023 02/10/2023 02/11/2023 heparin (porcine) 50 units/mL in dextrose 5% 500 mL infusion (CANCELED)(Linked Group 1) 0-5,000 Units/hr (0-100 mL/hr), Intravenous, CONTINUOUS, Starting on Wed02/08/23 at 2300, Until Wed02/09/23 at 0957, Begin infusion at 1,000 units per hr [...] Heparin UFH Level - Per Protocol, Routine 1034 (Hold - Provider: Zoila Bhatt RN - Reason: See comment - Comment: UFH 1.44)0555 (Restarted - Provider: Zoila Bhatt RN)1124 (Stopped - Provider: Opal Traore RN - Comment: verbal order to stop) PRN Medication Order 02/09/2023 02/10/2023 02/11/2023 lidocaine (Xylocaine) 1% (10 mg/mL) injection 3 mg 3 mg (0.3 mL), Subcutaneous, ONCE PRN, 1 dose, Starting on Wed02/08/23 at 2122, Until Wed02/11/23 at 1807, for discomfort with PIV insertion, Routine nitroGLYcerin (Nitrostat) disintegrating tablet 0.4 mg 0.4 mg, Sublingual, EVERY 5 MIN PRN, Starting on Wed02/08/23 at 1836, Until Wed02/11/23 at 1807, Chest pain, May repeat every 5 minutes for a total of three doses. Notify provider if chest pain not relieved with nitroglycerin. Do not administer nitroglycerin if the patient has received or taken phosphodiesterase (PDE-5) inhibitors such as sildenafil, tadalafil or vardenafil within the last 24 to 72 hours., Routine 1944 (Given - Provider: Zoila Bhatt RN) 08 (Given - Provider: Opal Traore RN - Comment: 06/15 CPBP 106/56) perflutren lipid microspheres (Definity) injection 1.2 mL (COMPLETED) 1.2 mL, Intravenous, ONCE PRN, 1 dose, Starting on Wed02/09/23 at 0901, Until Wed02/09/23 at 0901, Other, Routine 09 (Given - Provider: Aaron Herr) sodium chloride 0.9 % (flush) (BD PosiFlush Normal Saline 0.9) flush 5-20 mL 5-20 mL, Intravenous, EVERY 1 MIN PRN, Starting on Wed02/08/23 at 2122, Until Wed02/11/23 at 1807, flush, Flush pertains to all indwelling lines. Flush per protocol found in the job aid using the link provided on this medication record., Routine Linked Groups Order Group 1: heparin (porcine) 50 units/mL in dextrose 5% 500 mL infusion (CANCELED)Jump to med 0-5,000 Units/hr (0-100 mL/hr), Intravenous, CONTINUOUS, Starting on Wed02/08/23 at 2300, Until Wed02/09/23 at 0957, Begin infusion at 1,000 units per hr [...] Routine And heparin (porcine) (1,000 units/mL) injection 0-4,000 Units (CANCELED) 0-4,000 Units, Intravenous, BOLUS PER HEPARIN PROTOCOL, Starting on Wed02/08/23 at 2210, Until Wed02/09/23 at 0957, Per Protocol, START ADJUSTMENT SCHEDULE 6 HOURS AFTER STARTING INFUSION Bolus doses are rounded to the nearest 100 units. If Heparin UFH Level is: - Less than 0.1 international unit/mL: Bolus 60 units/kg (Maximum of 4,000 units) = Bolus 4,000 units - 0.1 - 0.19 International unit/mL: Bolus 30 units/kg (Maximum of 2,000 units) = Bolus 2,000 units - Equal to or greater than 0.2 international unit/mL: No Bolus, Routine documented in this encounter Care Teams Teacher Kindergarten Relationship Specialty Start Date End Date Polo Pearce PA [address] [place] [address] PCP - General Internal Medicine 06/09/21 documented as of this encounter
--- OUTSIDE RECORDS SUMMARY | 2023-09-20 14:36 | XMS_ITS | Encounter Summary ---
Author Organization [facility] Address [facility] [place] [address] Care Team Providers Care Car Greaser Name Role Phone Polo Pearce Primary Care Provider [phone] Encounter Details Date Type Department Care Team (Latest Contact Info) Description 03/22/2023 Travel Social History Tobacco Use Types Packs/Day [...] place to sleep or slept in a fpc (including now)? No 02/10/2023 Sex and Gender Information Value Date Recorded Sex Assigned at Not on file Gender Identity Not on file Sexual Orientation Not on file documented as of this encounter Plan of Treatment Upcoming Encounters Date Type Department Care Team (Late st Contact Info) Description 10/08/2023 8:30 AM EDT Tech [place] [phone] Jose Cook 10/08/2023 9:30 AM EDT Office [place] [phone] MD [facility] [place] [address] 10/21/2023 10:30 AM EDT Appointment Nuclear Medicine at [place] [phone] Mary Reyes [facility] [place] [address] 10/21/2023 11:30 AM EDT Appointment [place] [phone] Mary Reyes EMBEDDED DEVELOPER [facility] [place] [address] 10/21/2023 12:30 PM EDT Appointment [place] [address]-1000 Mary Reyes EMBEDDED DEVELOPER [facility] [place] [address] 10/21/2023 1:30 PM EDT Appointment Nuclear Medicine at [place] [phone] Mary Reyes [facility] [place] [address] 10/21/2023 2:30 PM EDT Appointment [place] [phone] Mary Reyes EMBEDDED DEVELOPER [facility] [place] [address] 10/26/2023 4:00 PM EDT Office Visit Cardiology at [address] [phone] Jaspreet Kinsey MD [facility] [place] [address] 10/28/2023 9:00 AM EDT Office Visit [place] [address] 10/29/2023 10:00 AM EDT Clinical Support [place] [address] 10/29/2023 10:15 AM EDT Procedure visit [place] [address] 11/01/2023 5:00 PM EDT Office [place] [address] Selene Browning, PhD [facility] [place] [address] 11/22/2023 4:40 PM EDT Office Visit Cardiology at [address] [phone] Porsha Mcdaniels MD [facility] [place] [address] 12/13/2023 10:00 AM EDT Clinical Support [place] [phone] Lucero Romero, ALVA [facility] [place] [address] documented as of this encounter Visit Diagnoses Not on filedocumented in this encounter Care Teams Car Greaser Relationship Specialty Start Date End Date Polo Pearce PA [address] [place] [address] PCP - General Internal Medicine 06/09/21 documented as of this encounter
--- OUTSIDE RECORDS SUMMARY | 2023-09-20 14:36 | XMS_ITS | Encounter Summary ---
Author Organization [facility] Address [facility] [place] [address] Care Team Providers Care Dispatcher Radioactive Waste Disposal Name Role Phone Polo Pearce Primary Care Provider [phone] Encounter Details Date Type Department Care Team (Late st Contact Info) Description 12/22/2022 Telephone Cardiology at [address] [place] [address] Jaspreet Kinsey MD [facility] [place] [address] Social History Tobacco Use Types Packs/Day Years [...] encounter Miscellaneous Notes * Telephone Encounter - Trey Tsai RN - 12/22/2022 9:35 AM EDT Patient called asking if a referral has been put into system for EP referral to discuss ablation? She was last seen on 11/17/22. documented in this encounter Plan of Treatment Upcoming Encounters Date Type Department Care Team (Late st Contact Info) Description 10/08/2023 8:30 AM EDT Tech [place] [phone] Jose Cook 10/08/2023 9:30 AM EDT Office Visit Vascular Surgery at [place] [phone] MD [facility] [place] [address] 10/21/2023 10:30 AM EDT Appointment Nuclear Medicine at [address] Mary Reyes [facility] [place] [address] 10/21/2023 11:30 AM EDT Appointment Nuclear Medicine at [place] [phone] Mary Reyes [facility] [place] [address] 10/21/2023 12:30 PM EDT Appointment [place] [phone] Mary Reyes [facility] [place] [address] 10/21/2023 1:30 PM EDT Appointment [place] [phone] Mary Reyes [facility] [place] [address] 10/21/2023 2:30 PM EDT Appointment [place] [phone] Mary Reyes APRN [facility] [place] [address] 10/26/2023 4:00 PM EDT Office Visit Cardiology at [address] [phone] Jaspreet Kinsey MD [facility] [place] [address] 10/28/2023 9:00 AM EDT Office [place] [address] 10/29/2023 10:00 AM EDT Clinical [place] [address] 10/29/2023 10:15 AM EDT Procedure [place] [address] 11/01/2023 5:00 PM EDT Office Visit Gastroenterology at [place] [phone] Selene Browning, PhD [facility] [place] [place] [address] 11/22/2023 4:40 PM EDT Office Visit Cardiology at [address] [phone] Porsha Mcdaniels MD [facility] [place] [address] 12/13/2023 10:00 AM EDT Clinical Support [place] [phone] [facility] [place] [address] documented as of this encounter Visit Diagnoses Not on filedocumented in this encounter Care Teams Dispatcher Radioactive Waste Disposal Relationship Specialty Start Date End Date Polo Pearce PA [address] [place] [address] PCP - General Internal Medicine 06/09/21 documented as of this encounter
--- OUTSIDE RECORDS SUMMARY | 2023-09-20 14:36 | XMS_ITS | Encounter Summary ---
Author Organization [facility] [place] [address] Care Team Providers Care Records Clerk Name Role Phone Polo Pearce Primary Care Provider [phone] Encounter Details Date Type Department Care Team (Late st Contact Info) Description 03/10/2023 Telephone Cardiology at [address] [place] [address] Nilda Mayes, RN Social History Tobacco Use Types Packs/Day Years Used Date Smoking Tobacco: Never Smokeless Tobacco: Never Alcohol Use Standard Drinks/Week Comments Never 0 (1 standard drink = 0.6 oz pur e alcohol) [facility] Utilities Answer Date Recorded In the past 12 months has e electric, gas, oil, or water [employer] threatened to shut off services in your [...] place to sleep or slept in a chcf (including now)? No 02/10/2023 Sex and Gender Information Value Date Recorded Sex Assigned at Not on file Gender Identity Not on file Sexual Orientation Not on file documented as of this encounter Miscellaneous Notes * Telephone Encounter - Nilda Mayes, RN - 03/10/2023 9:42 AM EST Indira wanting to confirm she could keep Mar 11 appointment. However, we have postponed it to Mar 22 to ymptoms of communicable illness - recent COVID 19 positive test and current symptoms documented in this encounter Plan of Treatment Upcoming Encounters Date Type Department Care Team (Late st Contact Info) Description 10/08/2023 8:30 AM EDT Tech Visit [place] [phone] Jose Cook 10/08/2023 9:30 AM EDT Office Visit [place] [address] MD [facility] [place] [address] 10/21/2023 10:30 AM EDT Appointment [place] [address] Mary Reyes APRN [facility] [place] [address] 10/21/2023 11:30 AM EDT Appointment [place] [address] Mary Reyes [facility] [place] [address] 10/21/2023 12:30 PM EDT Appointment [place] [address] [address] Re[address] [facility] [place] [address] 10/21/2023 1:30 PM EDT Appointment [place] [address] Mary Reyes [facility] [place] [address] 10/21/2023 2:30 PM EDT Appointment [place] [address] Mary Reyes [facility] [place] [address] 10/26/2023 4:00 PM EDT Office Visit Cardiology at [address] [place] [phone] Jaspreet Kinsey MD [facility] [place] [address] 10/28/2023 9:00 AM EDT Office [place] [address] 10/29/2023 10:00 AM EDT Clinical [place] [address] 10/29/2023 10:15 AM EDT Procedure [place] [address] 11/01/2023 5:00 PM EDT Office Visit Gastroenterology at [place] [phone] Selene Browning, PhD [facility] [place] [address] 11/22/2023 4:40 PM EDT Office Visit Cardiology at [address] [phone] Porsha Mcdaniels MD [facility] [place] [address] 12/13/2023 10:00 AM EDT Clinical Support [place] [phone] Lucero Romero, ALVA [facility] [place] [address] documented as of this encounter Visit Diagnoses Not on filedocumented in this encounter Care Teams Records Clerk Relationship Specialty Start Date End Date Polo Pearce PA [address] [place] [address] PCP - General Internal Medicine 06/09/21 documented as of this encounter
--- OUTSIDE RECORDS SUMMARY | 2023-09-20 14:36 | XMS_ITS | Encounter Summary ---
Author Organization [facility] Address [facility] [place] [address] Care Team Providers Care Chief Analytics Officer Name Role Phone Polo Pearce Primary Care Provider [phone] Encounter Details Date Type Department Care Team (Latest Contact Info) Description 02/16/2023 Travel Social History Tobacco Use Types Packs/Day Years Used Date Smoking Tobacco: Never Smokeless Tobacco: Never Alcohol Use Standard Drinks/Week Comments Never 0 (1 standard drink = 0.6 oz pur e alcohol) [facility] Utilities Answer Date Recorded In [...] slept in a longterm (including now)? No 02/10/2023 Sex and Gender Information Value Date Recorded Sex Assigned at Not on file Gender Identity Not on file Sexual Orientation Not on file documented as of this encounter Plan of Treatment Upcoming Encounters Date Type Department Care Team (Late st Contact Info) Description 10/08/2023 8:30 AM EDT Tech [place] [phone] Jose Cook 10/08/2023 9:30 AM EDT Office Visit [place] [phone] MD [facility] [place] [address] 10/21/2023 10:30 AM EDT Appointment Nuclear Medicine at [place] [phone] Mary Reyes [facility] [place] [address] 10/21/2023 11:30 AM EDT Appointment [place] [phone] Mary Reyes BIRTH CERTIFICATE CLERK [facility] [place] [address] 10/21/2023 12:30 PM EDT Appointment [place] [phone] Mary Reyes BIRTH CERTIFICATE CLERK [facility] [place] [address] 10/21/2023 1:30 PM EDT Appointment Nuclear Medicine at [place] [phone] Mary Reyes [facility] [place] [address] 10/21/2023 2:30 PM EDT Appointment [place] [phone] Mary Reyes BIRTH CERTIFICATE CLERK [facility] [place] [address] 10/26/2023 4:00 PM EDT Office Visit Cardiology at [address] [phone] Jaspreet Kinsey MD [facility] [place] [address] 10/28/2023 9:00 AM EDT Office Visit [place] [address] 10/29/2023 10:00 AM EDT Clinical Support [place] [address] 10/29/2023 10:15 AM EDT Procedure visit [place] [address] 11/01/2023 5:00 PM EDT Office Visit [place] [address] Selene Browning, PhD [facility] [place] [address] 11/22/2023 4:40 PM EDT Office Visit Cardiology at [address] [phone] Porsha Mcdaniels MD [facility] [place] [address] 12/13/2023 10:00 AM EDT Clinical Support [place] [phone] Lucero Romero, ALVA [facility] [place] [place] [address] documented as of this encounter Visit Diagnoses Not on filedocumented in this encounter Care Teams Chief Analytics Officer Relationship Specialty Start Date End Date Polo Pearce PA [address] [place] [address] PCP - General Internal Medicine 06/09/21 documented as of this encounter
--- OUTSIDE RECORDS SUMMARY | 2023-09-20 14:36 | XMS_ITS | Encounter Summary ---
Author Organization [facility] [place] [address] Care Team Providers Care Boat Tester Name Role Phone Polo Pearce Primary Care Provider [phone] Encounter Details Date Type Department Care Team (Latest Contact Info) Description 10/20/2022 Travel Social History Tobacco Use Types Packs/Day [...] AM EDT Tech [place] [phone] Jose Cook 10/08/2023 9:30 AM EDT Office [place] [phone] MD [facility] [place] [address] 10/21/2023 10:30 AM EDT Appointment [place] [address] Mary Reyes [facility] [place] [address] 10/21/2023 11:30 AM EDT Appointment Nuclear Medicine at [place] [phone] Mary Reyes [facility] [place] [address] 10/21/2023 12:30 PM EDT Appointment Nuclear Medicine at [place] [phone] Mary Reyes [facility] [place] [address] 10/21/2023 1:30 PM EDT Appointment [place] [address] Mary Reyes [facility] [place] [address] 10/21/2023 2:30 PM EDT Appointment [place] [address] Mary Reyes [facility] [place] [address] 10/26/2023 4:00 PM EDT Office Visit Cardiology at [address] [phone] Jaspreet Kinsey MD [facility] [place] [address] 10/28/2023 9:00 AM EDT Office [place] [address] 10/29/2023 10:00 AM EDT Clinical [place] [address] 10/29/2023 10:15 AM EDT Procedure [place] [address] 11/01/2023 5:00 PM EDT Office Visit Gastroenterology at [place] [phone] Selene Browning, PhD [facility] [place] [address] 11/22/2023 4:40 PM EDT Office Visit Cardiology at [address] [address] Porsha Mcdaniels MD [facility] [place] [address] 12/13/2023 10:00 AM EDT Clinical Support [place] [address] Lucero Romero, ALVA [facility] [place] [address] documented as of this encounter Visit Diagnoses Not on filedocumented in this encounter Care Teams Boat Tester Relationship Specialty Start Date End Date Polo Pearce PA [address] [place] [address] PCP - General Internal Medicine 06/09/21 documented as of this encounter
--- OUTSIDE RECORDS SUMMARY | 2023-09-20 14:36 | XMS_ITS | Encounter Summary ---
Author Organization [facility] Address [facility] [place] [address] Care Team Providers Care Regenerator Operator Name Role Phone Polo Pearce Primary Care Provider [phone] Encounter Details Date Type Department Care Team (Late st Contact Info) Description 02/16/2023 Telephone Cardiology at [address] [place] [address] Jaspreet Kinsey MD [facility] [place] [address] Social History Tobacco Use Types Packs/Day Years Used Date Smoking Tobacco: Never Smokeless Tobacco: Never Alcohol Use Standard Drinks/Week Comments Never 0 (1 standard drink = 0.6 oz pur e alcohol) [facility] Utilities Answer Date Recorded In the past 12 months has [employer], gas, oil, or water [employer] threatened to shut off services in your [...] Telephone Encounter - Trey Tsai RN - 02/16/2023 2:46 PM EST Discussed with Dr. Kinsey, he said she can stop her Ranolazine (Ranexa). * Telephone Encounter - Trey Tsai RN - 02/16/2023 2:31 PM EST Patient called with questions about her Ranalazone And torsemide that she was started on recently. She says that since she has started it she has beenvery sleepy and has dizziness with head movements. She has an appointment scheduled with Dr. Hoang 03/04. * Telephone Encounter - Aide Glass - 02/16/2023 1:27 PM EST Patient called because she some of her meds are causing her problems. Please call her back @ [phone] documented in this encounter Plan of Treatment Upcoming Encounters Date Type Department Care Team (Late st Contact Info) Description 10/08/2023 8:30 AM EDT Tech Visit [place] [address] Jose Cook 10/08/2023 9:30 AM EDT Office Visit Vascular Surgery at [place] [phone] MD [facility] [place] [address] 10/21/2023 10:30 AM EDT Appointment Nuclear Medicine at [address]1000 Mary Reyes [facility] [place] [address] 10/21/2023 11:30 AM EDT Appointment Nuclear Medicine at [place] [phone] Mary Reyes [facility] [place] [address] 10/21/2023 12:30 PM EDT Appointment Nuclear Medicine at [place] [phone] Mary Reyes [facility] [place] [address] 10/21/2023 1:30 PM EDT Appointment [place] [address] Mary Reyes [facility] [place] [address] 10/21/2023 2:30 PM EDT Appointment [place] [address] Mary Reyes APRN [facility] [place] [address] 10/26/2023 4:00 PM EDT Office Visit Cardiology at [address] [phone] Jaspreet Kinsey MD [facility] [place] [address] 10/28/2023 9:00 AM EDT Office [place] [address] 10/29/2023 10:00 AM EDT Clinical [place] [address] 10/29/2023 10:15 AM EDT Procedure [place] [address] 11/01/2023 5:00 PM EDT Office Visit [place] [phone] Selene Browning, PhD [facility] [place] [address] 11/22/2023 4:40 PM EDT Office Visit Cardiology at [address] [phone] Porsha Mcdaniels MD [facility] [place] [address] 12/13/2023 10:00 AM EDT Clinical Support [place] [phone] [facility] [place] [place] [address] documented as of this encounter Visit Diagnoses Not on filedocumented in this encounter Care Teams Regenerator Operator Relationship Specialty Start Date End Date Polo Pearce PA [address] [place] [address] PCP - General Internal Medicine 06/09/21 documented as of this encounter
--- OUTSIDE RECORDS SUMMARY | 2023-09-20 14:36 | XMS_ITS | Encounter Summary ---
Author Organization Formerly [facility] Address [facility] [place] [address] Care Team Providers Care Non Destructive Evaluation Manager Name Role Phone Polo Pearce Primary Care Provider [phone] Encounter Details Date Type Department Care Team (Late st Contact Info) Description 02/08/2023 Telephone Cardiology at [address] [phone] Ericka Brenner PA [facility] [place] [address] Social History Tobacco Use Types Packs/Day Years [...] encounter Miscellaneous Notes * Telephone Encounter - Ericka Brenner PA - 02/08/2023 4:05 PM EST Images from the original note were not included. 02/08/2023 Indira Roque Initial Contact Date: 02/08/2023 Contact time: 4:05 PM Referring Provider: Dr. Iyer Patient Location: COUNTS INCLUDE 234 BEDS AT THE [facility] Brief History 52 year old female with history of prior NSTEMI with normal coronaries 2019, recent coronary CTA with ca score 198), HTN, HLD, HFpEF, Afib (on Eliquis) who is presenting with chest pain. Left sided at times can be pleuritic. Ddimer negative, not hypoxic or tachycardia. BNP elevated but does not appear to be in HF per OSH provider. Sl nitro provided brief relief of chest pain which has since returned and plan to start nitro gtt. Vital sign: VSS Pertinent Diagnostic Findings: Labs: HS trop 638 - 622 ; Creat 1.2 ; Hgb, WBC, Hct, plts wnl Past cardiac studies: EKG: NSR ; st depressions inferolaterally TTE 09/2022: Interpretation Summary - Left ventricular systolic function is normal. [...] on 12/31/21, there is no significant change. CTA coronaries 09/2022: IMPRESSION 1. Coronary calcium score of 182 . 98%-ile rank based on age, race/ethnicity, and gender. 2. CAD-RADS 2. Mild mid-LAD stenosis (25-49%) secondary to calcific plaque. Calcium blooming may overestimate degree of stenosis. Otherwise, minimal diffuse atherosclerotic changes. 3. No evidence of acute aortopathy. 4. No acute pulmonary findings. [facility] 08/2019: Conclusions: * Normal coronary arteries OSH Interventions: Sl nitro Full dose ASA Assessment & Plan: 52 year old female with history of prior NSTEMI with normal coronaries 2019, recent coronary CTA with ca score 198), HTN, HLD, HFpEF, Afib (on Eliquis) who is presenting with chest pain. Has had similar presentation in 2019 with a [facility] demonstrating normal coronaries at that time. However a recent CTA coronaries in 09/2022 does show calcium score 182 with mid LAD stenosis. Given her negative ddimer and on Eliquis a PE is less likely. Possibly pericarditis given some pleuritic nature of pain but there are no positional symptoms. Potentially a HFpEF exacerbation is playing a part in her symptomsgiven her elevated BNP but per OSH provider she seems compensated on exam. Given elevated troponin,new EKG ST depressions, and CTA coronary in September with ASCVD will treat as type 1 NSTEMI and transfer to [facility] for further evaluation. - agree with nitro gtt if not chest pain free - if persistent chest pain with nitro gtt would load Plavix 600mg - start IV heparin gtt 12 hours post last dose of Eliquis - BB as able, HI statin - transfer to [facility] 02/08/23 Above recommendations were based on my discussion with Dr. Iyer; I have not personally interviewed or examined this patient. I encouraged them to contact us if there is any change in symptoms, decision- making, or further need for guidance in management. Ericka Brenner PA-C Access Pager [phone] 02/08/2023 documented in this encounter Plan of Treatment Upcoming Encounters Date Type Department Care Team (Late st Contact Info) Description 10/08/2023 8:30 AM EDT Tech Visit Vascular Lab at [place] [phone] Jose Cook 10/08/2023 9:30 AM EDT Office Visit Vascular Surgery at [place] [phone] MD [facility] [place] [address] 10/21/2023 10:30 AM EDT Appointment Nuclear Medicine at [place] [phone] Mary Reyes [facility] [place] [address] 10/21/2023 11:30 AM EDT Appointment Nuclear Medicine at [place] [phone] Mary Reyes CONVEYOR BELT REPAIRER [facility] [place] [address] 10/21/2023 12:30 PM EDT Appointment [place] [address] Mary Reyes, [facility] [place] [address] 10/21/2023 1:30 PM EDT Appointment [place] [address] Mary Reyes, [facility] [place] [address] 10/21/2023 2:30 PM EDT Appointment [place] [address] Mary Reyes, [facility] [place] [address] 10/26/2023 4:00 PM EDT Office Visit Cardiology at [address] [phone] Jaspreet Kinsey MD [facility] [place] [address] 10/28/2023 9:00 AM EDT Office [place] [address] 10/29/2023 10:00 AM EDT Clinical [place] [address] 10/29/2023 10:15 AM EDT Procedure [place] [address] 11/01/2023 5:00 PM EDT Office [place] [address] Selene Browning, PhD [facility] [place] [address] 11/22/2023 4:40 PM EDT Office Visit Cardiology at [address] [phone] Porsha Mcdaniels MD [facility] CARDIOLOGY [place], [place] [phone] 12/13/2023 10:00 AM EDT Clinical Support [place] [address] [facility] [place] [address] documented as of this encounter Visit Diagnoses Not on filedocumented in this encounter Care Teams Non Destructive Evaluation Manager Relationship Specialty Start Date End Date Polo Pearce PA Sb MOTT [address] [place] [address] PCP - General Internal Medicine 06/09/21 documented as of this encounter
--- OUTSIDE RECORDS SUMMARY | 2023-09-20 14:36 | XMS_ITS | Encounter Summary ---
Author Organization [facility] Address [facility] [place] [address] Care Team Providers Care Microelectronics Engineer Name Role Phone Polo Pearce Primary Care Provider [phone] Reason for Visit * Reason Comments Congestive Heart Failure HFpEF Atrial Fibrillation Encounter Details Date Type Department Care Team (Late st Contact Info) Description 11/17/2022 9:00 AM EDT Office Visit Cardiology at [address] [phone] Jaspreet Kinsey MD [facility] [place] [address] Paroxysmal atrial fibrillation; Heart failure with preserved ejection fraction, unspecified HF chronicity; Pulmonary embolism without acute cor pulmonale, unspecified chronicity, unspecified pulmonary embolism type; Chronic heart failure with preserved ejection fraction Social History Tobacco Use Types Packs/Day Years [...] Sign Reading Time Taken Comments Blood Pressure 102/65 11/17/2022 9:09 AM EDT Pulse 56 11/17/2022 9:09 AM EDT per e cg Temperature - - Respiratory Rate - - Oxygen Saturation - - Inhaled Oxygen Concentration - - Weight 98 kg (216 lb) 11/17/2022 9:09 AM EDT Height 162.6 cm (5' 4) 11/17/2022 9:09 AM EDT Body Mass Index 37.08 11/17/2022 9:09 AM EDT documented in this encounter Progress Notes * Jaspreet Kinsey MD - 11/17/2022 9:00 AM EDT Images from the original note were not included. Subjective: Patient ID: Indira Roque is a 52 y.o. female who presents on follow-up for: Chief Complaint Patient presents with Congestive Heart Failure HFpEF Atrial Fibrillation HPI Last seen by me 10/08/2022, at which time bumex was increased to 2 mg BID, and ASA and imdur were stopped (the former because of lack of obstructive disease, the latter because of lack of benefit/presence of headaches). In the interim, she was seen at [facility] vascular clinic and whilst having an episode of chest pressurein clinic she was found to be with atrial fibrillation. No changes were made at that time Since then, she has had a few very brief paroxysms of (posited) afib, lasting several minutes, a/w the chest pain that has been riddling her diagnosis for such. She states these episodes dissipate ifshe drinks something cold or relaxes No bleeding on eliquis. Would like to complete tattoo Bp well controlled No further headaches off imdur Breathing improved; weight is down 9 lbs. No angina. Can do 2 flights of stairs without stopping Current Outpatient Medications Medication Instructions albuterol (PROVENTIL HFA;VENTOLIN HFA) 90 mcg/Actuation inhaler 2 puffs, Inhalation, EVERY 4 HOURS PRN, Use with spacer amLODIPine (NORVASC) 5 mg, Oral, DAILY atorvastatin (LIPITOR) 80 mg, Oral, EVERY EVENING bumetanide (BUMEX) 2 mg, Oral, [address] (CYMBALTA) 60 mg, DAILY Eliquis 5 mg tablet TAKE TWO TABLETS BY MOUTH TWICE A DAY FOR 7 DAYS THEN TAKE ONE TABLET BY MOUTH TWO TIMES A DAY empagliflozin (JARDIANCE) 10 mg, Oral, DAILY erenumab-aooe (Aimovig Autoinjector) 70 mg/mL Auto-Injector Subcutaneous, EVERY 30 DAYS fluticasone propionate (FLONASE) 50 mcg/actuation [place], Suspension 1 spray, Each Nare, DAILY gabapentin (NEURONTIN) 600 mg, Oral, NIGHTLY loratadine (CLARITIN) 10 mg, Oral, DAILY PRN melatonin 10 mg, Oral, NIGHTLY PRN omeprazole (PRILOSEC) 20 mg, Oral, ONCE PRN, Infrequent use prochlorperazine (COMPAZINE) 5 mg, Oral, EVERY 6 HOURS PRN rOPINIRole (REQUIP) 2 mg, Oral, 2 TIMES DAILY topiramate (TOPAMAX) 100 mg, Oral, NIGHTLY Patient Active Problem List Diagnosis Paroxysmal atrial fibrillation 10/20/2022: diagnosed in clinic (see EKG on same date) with c/o chest pain Pulmonary embolus 07/2022: right upper lobe. Started on eliquis 08/2022 TTE ([facility]): normal bi-v s/f. No significant VHD (HFpEF) heart failure with preserved ejection fraction 05/2021: subacute, presented to [facility] with RUQ pain, weight gain, and progressive dyspnea. 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 Gen: pleasant female in NAD Cor: rrr, s1/s2 of nl character and amplitude, no m/r/g. Estimated RAP not elevated. Carotids with normal upstroke without bruit. Pulm: CTAB. Normal diaphragmatic movement without use of accessory muscles EKG: sb 56, nssttw Assessment and Plan: (HFpEF) heart failure with preserved ejection fraction As predicted, much improved breathing and activity level since bumex increased. - continue bumex 2 bid - Jardiance 10 - continue efforts at substrate modification Paroxysmal atrial fibrillation Continues with paroxysms that are associated with the chest pain, confirmed at clinic visit last month. However, by history she may have episodes that correlated with the known AVNRT (which at one point she was in consideration to have an ablation of). I think its reasonable at this point to reviewwith EP and reconsider ablation (perhaps AVNRT first, and then PVI if symptoms continue?). No room on HR to initiate AAD - Strategy: paroxysmal rate. Continue not on avnb - OAC: eliquis 5 bid (this is more so for history of PE) - Reversible Causes: obesity Pulmonary embolus Met with vascular medicine; because PE is unprovoked, have recommended indefinite OAC - eliquis 5 bid. This can be held for completion of tattoo for 2 days prior and restarting next day. At this point, I think we have well refuted the charted claim of a so-called minoca phenomenon, as symptoms have clearly been related to either volume overload or tachyarrhythmia (afib/SVT). She has not benefited from empiric treatment of the diagnosis, and in fact was met by significant untowardside effects of it. I feel strongly that it should not be carried forward in chart raphael. RTC pending patient's FUV with EP Jaspreet Kinsey MD documented in this encounter Miscellaneous Notes * Assessment & Plan Note - Jaspreet Kinsey MD - 11/17/2022 9:42 AM EDT Associated Problem(s): Pulmonary embolus (Resolved 05/10/2023) Met with vascular medicine; because PE is unprovoked, have recommended indefinite OAC - eliquis 5 bid. This can be held for completion of tattoo for 2 days prior and restarting next day. * Assessment & Plan Note - Jaspreet Kinsey MD - 11/17/2022 9:40 AM EDT Associated Problem(s): Paroxysmal atrial fibrillation Continues with paroxysms that are associated with the chest pain, confirmed at clinic visit last month. However, by history she may have episodes that correlated with the known AVNRT (which at one point she was in consideration to have an ablation of). I think its reasonable at this point to reviewwith EP and reconsider ablation (perhaps AVNRT first, and then PVI if symptoms continue?). No room on HR to initiate AAD - Strategy: paroxysmal rate. Continue not on avnb - OAC: eliquis 5 bid (this is more so for history of PE) - Reversible Causes: obesity * Assessment & Plan Note - Jaspreet Kinsey MD - 11/17/2022 9:37 AM EDT Associated Problem(s): (HFpEF) heart failure with preserved ejection fraction As predicted, much improved breathing and activity level since bumex increased. - continue bumex 2 bid - Jardiance 10 - continue efforts at substrate modification documented in this encounter Plan of Treatment Upcoming Encounters Date Type Department Care Team (Late st Contact Info) Description 10/08/2023 8:30 AM EDT Tech Visit [place] [phone] Jose Cook 10/08/2023 9:30 AM EDT Office Visit [place] [phone] MD [facility] [place] [address] 10/21/2023 10:30 AM EDT Appointment [place] [phone] Mary Reyes APRN [facility] [place] [address] 10/21/2023 11:30 AM EDT Appointment [place] [address] Mary Reyes, [facility] [place] [address] 10/21/2023 12:30 PM EDT Appointment [place] [address] Mary Reyes, [facility] [place] [address] 10/21/2023 1:30 PM EDT Appointment [place] [address] Mary Reyes, [facility] [place] [address] 10/21/2023 2:30 PM EDT Appointment [place] [address] Mary Reyes, [facility] [place] [address] 10/26/2023 4:00 PM EDT Office Visit Cardiology at [address] [phone] Jaspreet Kinsey MD [facility] [place] [address] 10/28/2023 9:00 AM EDT Office [place] [address] 10/29/2023 10:00 AM EDT Clinical [place] [address] 10/29/2023 10:15 AM EDT Procedure [place] [address] 11/01/2023 5:00 PM EDT Office Visit Gastroenterology at [address] Selene Browning, PhD [facility] [place] [address] 11/22/2023 4:40 PM EDT Office Visit Cardiology at [address] Porsha Mcdaniels MD [facility] [place] [address] 12/13/2023 10:00 AM EDT Clinical Support Gastroenterology at [place] [phone] [facility] [place] [address] documented as of this encounter Visit Diagnoses Diagnosis Paroxysmal atrial fibrillation Atrial fibrillation Heart failure with preserved ejection fraction, unspecified HF chronicity Pulmonary embolism without acute cor pulmonale, unspecified chronicity, unspecified pulmonary embolism type Chronic heart failure with preserved ejection fraction documented in this encounter Care Teams Microelectronics Engineer Relationship Specialty Start Date End Date Polo Pearce PA S[address] [place] [address] PCP - General Internal Medicine 06/09/21 documented as of this encounter
--- OUTSIDE RECORDS SUMMARY | 2023-09-20 14:36 | XMS_ITS | Encounter Summary ---
Author Organization Formerly [facility] [place] [address] Care Team Providers Care Flour Blender Helper Name Role Phone Polo Pearce Primary Care Provider [phone] Encounter Details Date Type Department Care Team (Late st Contact Info) Description 02/08/2023 External [place] [phone] Social History Tobacco Use Types Packs/Day Years [...] slept in a mcc (including now)? No 02/10/2023 Sex and Gender Information Value Date Recorded Sex Assigned at Not on file Gender Identity Not on file Sexual Orientation Not on file documented as of this encounter Plan of Treatment Upcoming Encounters Date Type Department Care Team (Late st Contact Info) Description 10/08/2023 8:30 AM EDT Tech Visit Vascular Lab at [place] [phone] Jose Cook 10/08/2023 9:30 AM EDT Office [place] [phone] MD [facility] [place] [address] 10/21/2023 10:30 AM EDT Appointment Nuclear Medicine at [place] [phone] Mary Reyes APRN [facility] [place] [address] 10/21/2023 11:30 AM EDT Appointment [place] [address] Mary Reyes CABINET ASSEMBLER [facility] [place] [address] 10/21/2023 12:30 PM EDT Appointment [place] [phone] Mary Reyes APRN [facility] [place] [address] 10/21/2023 1:30 PM EDT Appointment [place] [address] Mary Reyes, [facility] [place] [address] 10/21/2023 2:30 PM EDT Appointment [place] [address] Mary Reyes, [facility] [place] [address] 10/26/2023 4:00 PM EDT Office Visit Cardiology at [address] [phone] Jaspreet Kinsey MD [facility] [place] [address] 10/28/2023 9:00 AM EDT Office Visit [place] [address] 10/29/2023 10:00 AM EDT Clinical Support [place] [address] 10/29/2023 10:15 AM EDT Procedure visit [place] [address] 11/01/2023 5:00 PM EDT Office [place] [phone] Selene Browning, PhD [facility] [place] [address] 11/22/2023 4:40 PM EDT Office Visit Cardiology at [address] [phone] Porsha Mcdaniels MD [facility] [place] [address] 12/13/2023 10:00 AM EDT Clinical Support Gastroenterology at [facility] [place] [address] [facility] [place] [address] documented as of this encounter Procedures Procedure Name Priority Date/Time Associated Diagnosis Comments ECG SCAN Routine 02/08/2023 3:27 PM EST documented in this encounter Results * Scan Doc: ECG (02/08/2023 3:27 PM EST) Historical Provider MD FLEMING MGR SCAN EX T ORDR/RSLT documented in this encounter Visit Diagnoses Not on filedocumented in this encounter Care Teams Flour Blender Helper Relationship Specialty Start Date End Date Polo Pearce PA S[address] [place] [address] PCP - General Internal Medicine 06/09/21 documented as of this encounter
--- OUTSIDE RECORDS SUMMARY | 2023-09-20 14:36 | XMS_ITS | Encounter Summary ---
Author Organization [facility] Address [facility] [place] [address] Care Team Providers Care Elementary Esl Teacher Name Role Phone Polo Pearce Primary Care Provider [phone] Encounter Details Date Type Department Care Team (Late st Contact Info) Description 10/20/2022 Telephone Cardiology at [address] [place] [address] Jaspreet Kinsey MD [facility] [place] [address] Social History Tobacco Use Types Packs/Day Years [...] Miscellaneous Notes * Telephone Encounter - Nilda Mayes RN - 10/23/2022 9:57 AM EDT Telephone follow up with Indira. She is not able to accept an opening for cardiology appt on Wednesday afternoon. She is feeling somewhat better and feels she has had a good response to diuretic. Plan: continue self-care and self-monitoring at home. Update provider if changes between now and next appointment. * Telephone Encounter - Gianna Day RN - 10/20/2022 11:41 AM EDT Indira calls to update office that she was at [facility] this morning as a follow up for her bloodclot. She says she went into Afib during her appointment; her doctor there obtained an EKG and observed her for a time before she left. She states she still fells like her heart wants to act up. She denies any illness or increased caffeine intake. She is aware to seek urgent/emergency care if symptoms worsen or if heart rate is sustained at a high rate. documented in this encounter Plan of Treatment Upcoming Encounters Date Type Department Care Team (Late st Contact Info) Description 10/08/2023 8:30 AM EDT Tech [place] [address] Jose Cook 10/08/2023 9:30 AM EDT Office Visit [place] [phone] MD [facility] [place] [address] 10/21/2023 10:30 AM EDT Appointment [place] [address] Mary Reyes [facility] [place] [address] 10/21/2023 11:30 AM EDT Appointment [place] [phone] Mary Reyes [facility] [place] [address] 10/21/2023 12:30 PM EDT Appointment [place] [address] Mary Reyes, [facility] [place] [address] 10/21/2023 1:30 PM EDT Appointment [place] [address] Mary Reyes, [facility] [place] [address] 10/21/2023 2:30 PM EDT Appointment [place] [address] Mary Reyes, [facility] [place] [address] 10/26/2023 4:00 PM EDT Office Visit Cardiology at [address] [phone] Jaspreet Kinsey MD [facility] [place] [address] 10/28/2023 9:00 AM EDT Office [place] [address] 10/29/2023 10:00 AM EDT Clinical [place] [address] 10/29/2023 10:15 AM EDT Procedure [place] [address] 11/01/2023 5:00 PM EDT Office [place] [phone] Selene Browning, PhD [facility] [place] [address] 11/22/2023 4:40 PM EDT Office Visit Cardiology at [address] [phone] Porsha Mcdaniels MD [facility] [place] [address] 12/13/2023 10:00 AM EDT Clinical [place] [phone] [facility] [place] [address] documented as of this encounter Visit Diagnoses Not on filedocumented in this encounter Care Teams Elementary Esl Teacher Relationship Specialty Start Date End Date Polo Pearce PA Sb MOTT [address] [place] [address] PCP - General Internal Medicine 06/09/21 documented as of this encounter
--- OUTSIDE RECORDS SUMMARY | 2023-09-20 14:36 | XMS_ITS | Encounter Summary ---
Author Organization Formerly [facility] [place] [address] Care Team Providers Care Hardware Installation Coordinator Name Role Phone Polo Pearce Primary Care Provider [phone] Reason for Visit * Consultation (Routine) - Closed Specialty Diagnoses / Procedures Referred By Jayant harris Referred To Contact Vascular Surgery Diagnoses Pulmonary embolism, unspecified chronicity, unspecified pulmonary embolism type, unspecified whether acute cor pulmonale present ROUTINE, SALVATORE, BLE DVT Vascular medicine PE clinic: seemingly unprovoked small PE. review consideration of hypercoagulability testing Jaspreet Kinsey MD [facility] [place] [address] Elvin Maya MD [facility] [place] [address] Referral ID Status Reason Start Date Expiration Date V isits Requested Visits Authorized [id number] Closed Consult, Test & Treat 07/30/2022 07/30/2023 1 1 Encounter Details Date Type Department Care Team (Late st Contact Info) Description 10/20/2022 9:00 AM EDT Office [place] [address] Umberto Abbott MD [facility] CARDIOLOGY DEPT [place] [phone] Pulmonary embolism, unspecified chronicity, unspecified pulmonary embolism type, unspecified whether acute cor pulmonale present (Primary Dx); PAF (paroxysmal atrial fibrillation) Social History Tobacco Use Types Packs/Day Years [...] Sign Reading Time Taken Comments Blood Pressure 125/72 10/20/2022 8:58 AM EDT Pulse 69 10/20/2022 8:57 AM EDT Temperature - - Respiratory Rate - - Oxygen Saturation - - Inhaled Oxygen Concentration - - Weight 98.3 kg (216 lb 12.8 oz) 10/20/2022 8:57 AM EDT Height 162.6 cm (5' 4) 10/20/2022 8:57 AM EDT Body Mass Index 37.21 10/20/2022 8:57 AM EDT documented in this encounter Progress Notes * Sindhu Santo MD - 10/20/2022 9:00 AM EDT Images from the original note were not included. [facility] [place] [address] VASCULAR MEDICINE CLINIC NOTE PRIMARY CARE PROVIDER: JOCY Franco REFERRING PROVIDER: Jaspreet Kinsey PROBLEM LIST: Patient Active Problem List Diagnosis Pulmonary embolus 07/2022: right upper lobe. Started on eliquis 08/2022 TTE ([facility]): normal bi-v s/f. 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 Started on toprol Obesity Dyslipidemia Obstructive sleep apnea syndrome Insomnia (HFpEF) heart failure with preserved ejection fraction 05/2021: subacute, presented to [facility] with RUQ pain, weight gain, and progressive dyspnea. Noted to carry most fluid in abdomen - Multiple echos since then, including 09/2022, without significant finding Restless legs Asthma Subjective: Patient ID: Indira Driver is a 52 y.o. female with the following vascular issues: Unprovoked PE, 07/2022 Ms. 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 She states she has felt poorly over the past several years - significant dyspnea, chest pain, lower+upper extremity MSK pain that limits her functionally. She has had frequent episodes of chest discomfort with a work up that included a cardiac cath and multiple CTAs, which have been unrevealing for obstructive CAD. In July 2022, she had a CTPA for an acute worsening of her dyspnea and chest pressure, which revealed a right sided PE. Subsequent TTE showed normal RV size and function. She has been compliant with Eliquis 5mg BID. Regarding risk factors - she does not smoke or use tobacco products, she was not on any hormonal (estrogen) based medications, she has no personal or family history of clots. She had no prior long period of inactivity and she does not have a diagnosis of malignancy. She is obese. She noted that she has a history of paroxysmal atrial fibrillation. She was seen recently by her primary Photogrammetrist, Dr. Kinsey, and he had uptitrated her diuretics for HFpEF. She notes significant improvement in lower extremity swelling and volume status on her current regimen of Bumex 2mg BID. Current cardiac medications: - Eliquis 5mg BID - Bumex 2mg BID Family history: Noncontributory Social history: Tobacco: No Illicits: No Lives with her . He has MS. Objective: Vitals: 10/20/22 0857 10/20/22 0858 BP: 135/80 125/72 BP Location (NBP): Right arm Left arm Patient Position: Sitting Sitting Pulse: 69 Weight: 98.3 kg (216 lb 12.8 oz) Height: 162.6 cm (5' 4) Physical Exam Constitutional: Appearance: Normal appearance. HENT: Head: Normocephalic and atraumatic. Cardiovascular: Rate and Rhythm: Normal rate and regular rhythm. Heart sounds: No murmur heard. Pulmonary: Effort: Pulmonary effort is normal. No respiratory distress. Breath sounds: No stridor. No wheezing or rhonchi. Abdominal: General: Abdomen is flat. Musculoskeletal: General: No swelling. Skin: General: Skin is warm. Neurological: Mental Status: She is alert. Last wbc, hgb, hct plt No results for input(s): WBC, HGB, HCT in the last 72 hours. Invalid input(s): PLT Last 3 Lytes Recent Labs 09/28/22 0349 09/27/22 0307 09/26/22 1750 NA 137 138 140 K 4.4 4.3 4.2 CL 108* 108* 108* CO2 18* 18* 19* BUN 26* 31* 28* CREATININE 1.01 1.19 1.02 Last 3 LFTs No results for input(s): AST, ALT, ALKPHOS, BILITOT, BILIDIR in the last 7068 hours. Last Ca, Mg, Phos No results for input(s): CALCIUM, PHOS, MAGNESIUM in the last 168 hours. Last 3 TFT Recent Labs 09/26/22 1750 12/31/21 0020 TSH 3.02 7.36* Cardiac Studies: Prior cath, coronary CTA, and echo reports, Duplex study reviewed EKG today: Atrial fibrillation 96 bpm, inferolateral ST depressions. When compared with ECG of 08-OCT-2022 16:19, Atrial fibrillation has replaced Sinus rhythm Assessment and Plan: Ms. 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 She is doing well from a respiratory perspective and she is tolerating her anticoagulation without issues. She continues to have her chest pain episodes, which are atypical for angina.. #Unprovoked PE, 07/2022 - No DVT noted - Echo without RV dilation or dysfunction - Continue indefinite AC; currently on apixaban 5mg BID #Atrial fibrillation, paroxysmal and rate controlled - Seen on EKG today - Already on AC and BB. She is stable and no change in meds is indicated at this time - Follow up with Dr. Kinsey, who has beennotified Thank you for the opportunity to participate in this patient's cardiovascular care. All questions were answered. Hereafter, she will be followed for these cardiovascular issues by Dr. Kinsey, but welcome to return to Vascular Clinic as needed. Sindhu Santo MD After School Program Assistant, PGY5 #[id number] Cardiovascular Medicine Attending I have interviewed and examined the patient and reviewed the information in this note. I agree withthe details as written. The assessment and plan were formulated in discussion with me and I agree with them as documented. Umberto Abbott MD documented in this encounter Plan of Treatment Upcoming Encounters Date Type Department Care Team (Late st Contact Info) Description 10/08/2023 8:30 AM EDT Tech Visit Vascular Lab at [place] [phone] Jose Cook 10/08/2023 9:30 AM EDT Office Visit Vascular Surgery at [place] [phone] MD [facility] [place] [address] 10/21/2023 10:30 AM EDT Appointment Nuclear Medicine at [address] Mary Reyse [facility] [place] [address] 10/21/2023 11:30 AM EDT Appointment Nuclear Medicine at [place] [phone] Mary Reyes [facility] [place] [address] 10/21/2023 12:30 PM EDT Appointment Nuclear Medicine at [place] [phone] Mary Reyes [facility] [place] [address] 10/21/2023 1:30 PM EDT Appointment [place] [phone] Mary Reyes [employer] [facility] [place] [address] 10/21/2023 2:30 PM EDT Appointment [place] [phone] Mary Reyes [employer] [facility] [place] [address] 10/26/2023 4:00 PM EDT Office Visit Cardiology at [address] [phone] Jaspreet Kinsey MD [facility] [place] [address] 10/28/2023 9:00 AM EDT Office [place] [address] 10/29/2023 10:00 AM EDT Clinical Support [place] [address] 10/29/2023 10:15 AM EDT Procedure visit [place] [address] 11/01/2023 5:00 PM EDT Office Visit [place] [phone] Selene Browning, PhD [facility] [place] [address] 11/22/2023 4:40 PM EDT Office Visit Cardiology at [address] [phone] Porsha Mcdaniels MD [facility] [place] [address] 12/13/2023 10:00 AM EDT Clinical Support [place] [address] Lucero Romero, [facility] [address] documented as of this encounter Visit Diagnoses Diagnosis Pulmonary embolism, unspecified chronicity, unspecified pulmonary embolism type, unspecified whether acute cor pulmonale present- Primary PAF (paroxysmal atrial fibrillation) Atrial fibrillation documented in this encounter Care Teams Hardware Installation Coordinator Relationship Specialty Start Date End Date Polo Pearce PA [address] [place] [address] PCP - General Internal Medicine 06/09/21 documented as of this encounter
--- OUTSIDE RECORDS SUMMARY | 2023-09-20 14:37 | XMS_ITS | Encounter Summary ---
Author Organization [place] [address] Care Team Providers Care Marketing Manager Name Role Phone Polo Pearce Primary Care Provider [phone] Encounter Details Date Type Department Care Team (Late st Contact Info) Description 08/31/2022 Telephone Cardiology at [address] [phone] Carrol La PA [facility] [address] Social History Tobacco Use Types Packs/Day Years [...] encounter Miscellaneous Notes * Telephone Encounter - Carrol La PA - 08/31/2022 2:04 PM EDT Images from the original note were not included. 08/31/2022 Indira FloydDougall Initial Contact Date: 08/31/2022 Contact time: 2:04 PM Referring Provider: Dr. Evans Patient Location: [facility] Brief History Lyubov Roque is a 52 y.o female with PMH of HFpEF, SVT, PE on Eliquis, HLD who presented to the OSH with nausea, diffuse abdominal pain. Developed chest pain that OSH provider reports was LUQ pain under left breast. Sterling like a sharp, intermittent squeeze. Patient is tender to palpation overwhole abdomen. No dyspnea, lightheadedness, diaphoresis. CT abdomen WNL. No exertional CP. Troponin 644 -> 590 Vital sign: VSS Pertinent Diagnostic Findings: Labs: Cr 1.5 (Baseline 1.2) Past cardiac studies: EKG 08/31/2022 EKG 07/2022: TTE 08/17/2022 C 08/2019 Conclusions: * Normal coronary arteries OSH Interventions: IVF Assessment & Plan: Lyubov Roque is a 52 y.o female with PMH of HFpEF, SVT, PE on Eliquis, HLD who presented to the OSH with nausea and diffuse abdominal pain. Patient reported chest pain that OSH provider reports was LUQ abdominal pain under left breast. Sterling like a sharp, intermittent squeeze that resolved spo ntaneously. Per outside provider, patient is tender to palpation over whole abdomen. No dyspnea, lightheadedness, diaphoresis or other concerning CV symptoms. CT abdomen WNL. No exertional CP. Troponin 644 -> 590. EKG copied and pasted above; sinus bradycardia, diffuse STD that are unchanged from prior. Patient had a TTE ~2 weeks ago without concerning findings. In addition, underwent cardiac catheterization in 08/2019 with normal coronary arteries. She also has a mild CATIE with creatinine 1.5, baseline ~1.1-1.2. Received IVF for this. Outside provider also notes that patient has a chronically elevated troponin in 300's range on prior lab checks in [facility] system. ACS seems unlikely at this time based on my discussion with Dr. Evans as her symptoms seem GI in origin. This may represent a type II NSTEMI in setting of CATIE and acute GI illness. I recommended close follow up with Dr. Kinsey, primary mower operator who can consider stress testing. In addition, bradycardic to the 40-50's. Prior EKGs with HR in 50's. Patient is on metoprolol succinate 25 mg daily for hx of SVT. I recommended reducing to 12.5 mg daily. Above recommendations were based on my discussion with Dr. Evans; I have not personally interviewed or examined this patient. I encouraged them to contact us if there is any change in symptoms, decision- making, or further need for guidance in management. Carrol La PA-C Access Pager [phone] 08/31/2022 documented in this encounter Plan of Treatment Upcoming Encounters Date Type Department Care Team (Late st Contact Info) Description 10/08/2023 8:30 AM EDT Tech Visit Vascular Lab at [place] [phone] Jose Cook 10/08/2023 9:30 AM EDT Office Visit Vascular Surgery at [place] [phone] MD [facility] [place] [address] 10/21/2023 10:30 AM EDT Appointment Nuclear Medicine at [place] [phone] Mary Reyes [facility] [place] [address] 10/21/2023 11:30 AM EDT Appointment [place] [phone] Mary Reyes [facility] [place] [place] [address] 10/21/2023 12:30 PM EDT Appoint[place] [phone] Mary Reyes [facility] [place] [place] [address] 10/21/2023 1:30 PM EDT Appointment Nuclear Medicine at [facility] [place] [address] Mary Reyes APRN [facility] [place] [address] 10/21/2023 2:30 PM EDT Appointment Nuclear Medicine at [place] [phone] Mary Reyes APRN [facility] [place] [address] 10/26/2023 4:00 PM EDT Office Visit Cardiology at [address] [phone] Jaspreet Kinsey MD [facility] [place] [address] 10/28/2023 9:00 AM EDT Office [place] [address] 10/29/2023 10:00 AM EDT Clinical Support [place] [address] 10/29/2023 10:15 AM EDT Procedure [place] [address] 11/01/2023 5:00 PM EDT Office Visit Gastroenterology at [place] [phone] Selene Browning, PhD [facility] [place] [address] 11/22/2023 4:40 PM EDT Office Visit Cardiology at [place] [phone] Porsha Mcdaniels MD [facility] [place] [address] 12/13/2023 10:00 AM EDT Clinical [place] [address] Lucero Romero, [place] [facility] [place] [address] documented as of this encounter Visit Diagnoses Not on filedocumented in this encounter Care Teams Marketing Manager Relationship Specialty Start Date End Date Polo Pearce PA [address] [place] [address] PCP - General Internal Medicine 06/09/21 documented as of this encounter
--- OUTSIDE RECORDS SUMMARY | 2023-09-20 14:37 | XMS_ITS | Encounter Summary ---
Author Organization [facility] Address [facility] [place] [address] Care Team Providers Care Patch Sander Name Role Phone Polo Pearce Primary Care Provider [phone] Reason for Referral * Consultation (Routine) - Closed Specialty Diagnoses / Procedures Referred By Jayant harris Referred To Contact Vascular Surgery Diagnoses Pulmonary embolism, unspecified chronicity, unspecified pulmonary embolism type, unspecified whether acute cor pulmonale present ROUTINE, SALVATORE, BLE DVT Vascular medicine PE clinic: seemingly unprovoked small PE. review consideration of hypercoagulability testing Jaspreet Kinsey MD [facility] [place] [address] Elvin Maya MD [facility] [place] [address] Referral ID Status Reason Start Date Expiration Date V isits Requested Visits Authorized [id number] Closed Consult, Test & Treat 07/30/2022 07/30/2023 1 1 Reason for Visit * Reason Comments Coronary Artery Disease Congestive Heart Failure HFpEF Chest Pain Encounter Details Date Type Department Care Team (Late st Contact Info) Description 07/30/2022 9:20 AM EDT Office Visit Cardiology at [address] [place] [address] Jaspreet Kinsey MD [facility] [place] [address] Heart failure with preserved ejection fraction, unspecified HF chronicity; Pulmonary embolism, unspecified chronicity, unspecified pulmonary embolism type, unspecified whether acute cor pulmonale present; SVT (supraventricular tachycardia) Social History Tobacco Use [...] Sign Reading Time Taken Comments Blood Pressure 118/66 07/30/2022 9:27 AM EDT Pulse 56 07/30/2022 9:27 AM EDT Temperature - - Respiratory Rate - - Oxygen Saturation - - Inhaled Oxygen Concentration - - Weight 100.4 kg (221 lb 4.8 oz) 07/30/2022 9:27 AM EDT Height 162.6 cm (5' 4) 07/30/2022 9:27 AM EDT Body Mass Index 37.99 07/30/2022 9:27 AM EDT documented in this encounter Progress Notes * Jaspreet Kinsey MD - 07/30/2022 9:20 AM EDT Images from the original note were not included. Subjective: Patient ID: Indira Roque is a 52 y.o. female who presents on follow-up for: Chief Complaint Patient presents with ??? Coronary Artery Disease ??? Congestive Heart Failure HFpEF ??? Chest Pain HPI Last seen by me 03/2022, at which time lasix was changed to bumex for intravascular hypervolemia. Inaddition, a CCTA was arranged for atypical chest pain. This had not been completed Intercurrently, patient presented earlier this week to [facility] with an abrupt increase in fatigue/dyspnea x 2 days. She was found to have RUL PE without DVT. She was appropriately started on Eliquis. Norecent travel, surgery. No FHX VTE Since then, she notes her breathing is a bit better, though remaining nyha ii- iii. She also notes weight gain, but doesn't think hr caloric intake matches it When she was switched to bumex from lasix, did not notice a significant increase in UOP; however, at [facility] notes they gave me something that they said would make me pee, and it really worked. No bleeding on eliquis No palpitations Current Outpatient Medications Medication Instructions ??? albuterol (PROVENTIL HFA;VENTOLIN HFA) 90 mcg/Actuation inhaler 2 puffs, Inhalation, EVERY 4 HOURS PRN, Use with spacer ??? atorvastatin (LIPITOR) 80 mg, Oral, EVERY EVENING ??? bumetanide (BUMEX) 1 mg, Oral, DAILY ??? diclofenac (VOLTAREN) 1 % Gel APPLY TO SINGLE KNEE ANKLE OR FOOT SOLES TOES TOP OF FOOT ONCE DAILY ??? DULoxetine DR (CYMBALTA) 60 mg, DAILY ??? Eliquis 5 mg tablet TAKE TWO TABLETS BY MOUTH TWICE A DAY FOR 7 DAYS THEN TAKE ONE TABLET BY MOUTH TWO TIMES A DAY ??? empagliflozin (JARDIANCE) 10 mg, Oral, DAILY ??? erenumab-aooe (Aimovig Autoinjector) 70 mg/mL Auto-Injector Subcutaneous, EVERY 30 DAYS ??? fluticasone propionate (FLONASE) 50 mcg/actuation [place], Suspension 1 spray, Each Nare, DAILY ??? gabapentin (NEURONTIN) 600 mg, Oral, NIGHTLY ??? lisinopriL (Zestril) 5 mg tablet No dose, route, or frequency recorded. ??? loratadine (CLARITIN) 10 mg, Oral, DAILY PRN ??? metoprolol succinate XL (TOPROL-XL) 25 mg, Oral, DAILY ??? nitroGLYcerin (NITROSTAT) 0.4 mg, Sublingual, EVERY 5 MIN PRN ??? omeprazole (PRILOSEC) 20 mg, Oral, ONCE PRN, Infrequent use ??? prochlorperazine (COMPAZINE) 5 mg, Oral, EVERY 6 HOURS PRN ??? rOPINIRole (REQUIP) 2 mg, Oral, 2 TIMES DAILY ??? spironolactone (ALDACTONE) 25 mg, Oral, DAILY ??? topiramate (TOPAMAX) 100 mg, Oral, NIGHTLY ??? traZODone (Desyrel) 50 mg Tablet TAKE 1 TO 2 TABLETS BY MOUTH AT BEDTIME Patient Active Problem List Diagnosis ??? Pulmonary embolus 07/2022: right upper lobe. Started on eliquis ??? 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 Started on toprol ??? Obesity ??? Dyslipidemia ??? Obstructive sleep apnea syndrome ??? Insomnia ??? (HFpEF) heart failure with preserved ejection fraction 05/2021: subacute, presented to [facility] with RUQ pain, weight gain, and progressive dyspnea. Noted to carry most fluid in abdomen ??? Restless legs ??? Asthma Objective: BP 118/66 (BP Location (NBP): Left arm, Patient Position: Sitting, BP Cuff Sizes: Adult (25-34 cm)) Pulse 56 Ht 162.6 cm (5' 4) Wt 100.4 kg (221 lb 4.8 oz) BMI 37.99 kg/m?? Gen: pleasant female in NAD Cor: morgan reg, s1/s2 of nl character and amplitude, no m/r/g. Estimated RAP not elevated. Carotidswith normal upstroke without bruit. Pulm: CTAB. Normal diaphragmatic movement without use of accessory muscles EKG: sinus bradycardia 51 Assessment and Plan: (HFpEF) heart failure with preserved ejection fraction Appears intravascularly euvolemic today. Will see if we can get the discharge summary and medication administration record from [facility] to see what was given to her to effect UOP positively - Diuresis: bumex 1 qd - Cardioprotection: - SGLT2i: jardiance - MRA: aldactone 25 SVT (supraventricular tachycardia) No recent issues - continue toprol 25 Pulmonary embolus At this time, appears unprovoked. Will refer to vascular medicine for further consideration of hypercoagulability evaluation. Will also obtain echocardiogram to evaluate pulmonary pressure and right ventricular size/function - TTE RTC 2-3 months Jaspreet Kinsey MD documented in this encounter Miscellaneous Notes * Assessment & Plan Note - Jaspreet Kinsey MD - 07/30/2022 10:09 AM EDT Associated Problem(s): Pulmonary embolus (Resolved 05/10/2023) At this time, appears unprovoked. Will refer to vascular medicine for further consideration of hypercoagulability evaluation. Will also obtain echocardiogram to evaluate pulmonary pressure and right ventricular size/function - TTE * Assessment & Plan Note - Jaspreet Kinsey MD - 07/30/2022 10:08 AM EDT Associated Problem(s): SVT (supraventricular tachycardia) No recent issues - continue toprol 25 * Assessment & Plan Note - Jaspreet Kinsey MD - 07/30/2022 10:08 AM EDT Associated Problem(s): (HFpEF) heart failure with preserved ejection fraction Appears intravascularly euvolemic today. Will see if we can get the discharge summary and medication administration record from [facility] to see what was given to her to effect UOP positively - Diuresis: bumex 1 qd - Cardioprotection: - SGLT2i: jardiance - MRA: aldactone 25 documented in this encounter Plan of Treatment Upcoming Encounters Date Type Department Care Team (Late st Contact Info) Description 10/08/2023 8:30 AM EDT Tech Visit [place] [phone] Jose Cook 10/08/2023 9:30 AM EDT Office Visit [place] [phone] MD [facility] [place] [address] 10/21/2023 10:30 AM EDT Appointment [place] [address] Mary Reyes [facility] [place] [address] 10/21/2023 11:30 AM EDT Appointment Nuclear Medicine at [place] [address] Mary Reyes [facility] [place] [address] 10/21/2023 12:30 PM EDT Appointment Nuclear Medicine at [place] [address] Mary Reyes [facility] [place] [address] 10/21/2023 1:30 PM EDT Appointment Nuclear Medicine at [place] [phone] Mary Reyes [facility] [place] [address] 10/21/2023 2:30 PM EDT Appointment [place] [address] Mary Reyes [facility] [place] [address] 10/26/2023 4:00 PM EDT Office Visit Cardiology at [address] [phone] Jaspreet Kinsey MD [facility] [place] [address] 10/28/2023 9:00 AM EDT Office Visit [place] [address] 10/29/2023 10:00 AM EDT Clinical Support [place] [address] 10/29/2023 10:15 AM EDT Procedure visit [place] [address] 11/01/2023 5:00 PM EDT Office [place] [address] Selene Browning, PhD [facility] [address] 11/22/2023 4:40 PM EDT Office Visit Cardiology at [place] [phone] Porsha Mcdaniels MD [facility] [address] 12/13/2023 10:00 AM EDT Clinical Support [place] [address] Lucero Romero, [place] [facility] [place] [address] Scheduled Referrals Name Type Priority Associated Diagnoses Orde r Schedule Referral to Cardiology Outpatient Referral Routine Pulmonary embolism, unspecified chronicity, unspecified pulmonary embolism type, unspecified whether acute cor pulmonale present Ordered: 07/30/2022 documented as of this encounter Visit Diagnoses Diagnosis Heart failure with preserved ejection fraction, unspecified HF chronicity Pulmonary embolism, unspecified chronicity, unspecified pulmonary embolism type, unspecified whether acute cor pulmonale present SVT (supraventricular tachycardia) Other specified cardiac dysrhythmias documented in this encounter Care Teams Patch Sander Relationship Specialty Start Date End Date Polo Pearce PA [address] [place] [address] PCP - General Internal Medicine 4/4/22 documented as of this encounter
--- OUTSIDE RECORDS SUMMARY | 2023-09-20 14:37 | XMS_ITS | Encounter Summary ---
Author Organization [facility] Address [facility] [place] [address] Care Team Providers Care Seasonal Clerk Name Role Phone Polo Pearce Primary Care Provider [phone] Encounter Details Date Type Department Care Team (Late st Contact Info) Description 07/07/2022 Telephone Cardiology at [address] [place] [address] Jaspreet Kinsey MD [facility] [place] [address] Social History Tobacco Use Types Packs/Day Years [...] encounter Miscellaneous Notes * Telephone Encounter - Brenda Callahan - 07/07/2022 11:03 AM EDT Pt called asking what we were trying to do for her I read the last telephone note in her chart and it looks like the was talk of ccta, I did let the pt know that what I could see there was an appt scheduled for July 30 at 10. She was unaware of this. documented in this encounter Plan of Treatment Upcoming Encounters Date Type Department Care Team (Late st Contact Info) Description 10/08/2023 8:30 AM EDT Tech Visit Vascular Lab at [place] [phone] Jose Cook 10/08/2023 9:30 AM EDT Office [place] [address] MD [facility] [place] [address] 10/21/2023 10:30 AM EDT Appointment Nuclear Medicine at [place] [phone] Mary Reyes [facility] [place] [address] 10/21/2023 11:30 AM EDT Appointment [place] [phone] Mary Reyes [facility] [address] 10/21/2023 12:30 PM EDT Appointment [place] [phone] Mary Reyes [facility] [address] 10/21/2023 1:30 PM EDT Appointment [place] [phone] Mary Reyes [facility] [address] 10/21/2023 2:30 PM EDT Appointment [place] [phone] Mary Reyes APRN [facility] [place] [address] 10/26/2023 4:00 PM EDT Office Visit Cardiology at [address] [phone] Jaspreet Kinsey MD [facility] [place] [address] 10/28/2023 9:00 AM EDT Office Visit [place] [address] 10/29/2023 10:00 AM EDT Clinical Support [place] [address] 10/29/2023 10:15 AM EDT Procedure visit [place] [address] 11/01/2023 5:00 PM EDT Office Visit Gastroenterology at [place] [phone] Selene Browning, PhD [facility] [place] [address] 11/22/2023 4:40 PM EDT Office Visit Cardiology at [address] [address] Porsha Mcdaniels MD [facility] [place] [address] 12/13/2023 10:00 AM EDT Clinical [place] [phone] [facility] [place] [address] documented as of this encounter Visit Diagnoses Not on filedocumented in this encounter Care Teams Seasonal Clerk Relationship Specialty Start Date End Date Polo Pearce PA [address] [place] [address] PCP - General Internal Medicine 06/09/21 documented as of this encounter
--- OUTSIDE RECORDS SUMMARY | 2023-09-20 14:37 | XMS_ITS | Encounter Summary ---
Author Organization [facility] Address [facility] [place] [address] Care Team Providers Care Bobbin Disker Name Role Phone Polo Pearce Primary Care Provider [phone] Encounter Details Date Type Department Care Team (Late st Contact Info) Description 04/16/2022 Refill Cardiology at [address] [place] [address] Jaspreet Kinsey MD [facility] [place] [address] Social History Tobacco Use Types Packs/Day Years [...] Telephone Encounter - Nilda Mayes RN - 04/17/2022 8:25 AM EST Called to leave for Indira. Refill order was placed. ??Order for CCTA placed by Dr. Kinsey. [facility] will contact you for scheduling. * Telephone Encounter - Brenda Callahan - 04/16/2022 4:19 PM EST Pt called needing a refill on: Bumetanide 1 mg 30 tabs in bottle 1 x daily [facility] [place] Pt states she is having a lot of pain and a lot of issues and would like to figure out what to do.She is not sleeping well and she has to sleep upright because it hurts to lay down. She said this was a trial point for her that Dr. Kinsey wanted to try and she would like to know if he wants her tocontinue on this. Phone # Is [phone] documented in this encounter Plan of Treatment Upcoming Encounters Date Type Department Care Team (Late st Contact Info) Description 10/08/2023 8:30 AM EDT Tech Visit Vascular Lab at [place] [phone] Jose Cook 10/08/2023 9:30 AM EDT Office [place] [phone] MD [facility] [place] [place] [address] 10/21/2023 10:30 AM EDT Appointment Nuclear Medicine at [place] [phone] Mary Reyes [employer] DES[employer] [facility] [place] [address] 10/21/2023 11:30 AM EDT Appointment [place] [phone] Mary Reyes [facility] [address] 10/21/2023 12:30 PM EDT Appointment [place] [address] Mary Reyes [employer] DES[employer] [facility] [place] [address] 10/21/2023 1:30 PM EDT Appointment [place] [phone] Mary Reyes [employer] TE[employer] DES[employer] [facility] [place] [address] 10/21/2023 2:30 PM EDT Appointment [place] [phone] Mary Reyes, [facility] [place] [address] 10/26/2023 4:00 PM EDT Office Visit Cardiology at [address] [phone] Jaspreet Kinsey MD [facility] [place] [address] 10/28/2023 9:00 AM EDT Office [place] [address] 10/29/2023 10:00 AM EDT Clinical [place] [address] 10/29/2023 10:15 AM EDT Procedure [place] [address] 11/01/2023 5:00 PM EDT Office [place] [phone] Selene Browning, PhD [facility] [place] [address] 11/22/2023 4:40 PM EDT Office Visit Cardiology at [address] [phone] Porsha Mcdaniels MD [facility] [address] 12/13/2023 10:00 AM EDT Clinical [place] [phone] [facility] [place] [address] documented as of this encounter Visit Diagnoses Diagnosis Chronic heart failure with preserved ejection fraction Chest pain, unspecified type documented in this encounter Care Teams Bobbin Disker Relationship Specialty Start Date End Date Polo Pearce PA [address] [place] [address] PCP - General Internal Medicine 06/09/21 documented as of this encounter
--- OUTSIDE RECORDS SUMMARY | 2023-09-20 14:37 | XMS_ITS | Encounter Summary ---
Author Organization [facility] Address [facility] [place] [address] Care Team Providers Care Patient Transporter Name Role Phone Polo Pearce Primary Care Provider [phone] Reason for Visit * Reason Comments Medication Refill Encounter Details Date Type Department Care Team (Late st Contact Info) Description 07/24/2022 Refill Cardiology at [address] [phone] Deja Zaidi PA [facility] [place] [address] Medication Refill Social History Tobacco Use Types Packs/Day Years [...] AM EDT Tech [place] [phone] Jose Cook 10/08/2023 9:30 AM EDT Office Visit [place] [address] Thiago Miller MD [facility] [address] 10/21/2023 10:30 AM EDT Appointment Nuclear Medicine at [address] Mary Reyes [facility] [place] [address] 10/21/2023 11:30 AM EDT Appointment Nuclear Medicine at [address] Mary Reyes [facility] [place] [address] 10/21/2023 12:30 PM EDT Appointment Nuclear Medicine at [place] [phone] Mary Reyes [facility] [place] [address] 10/21/2023 1:30 PM EDT Appointment [place] [phone] Mary Reyes [facility] [place] [address] 10/21/2023 2:30 PM EDT Appointment [place] [phone] Mary Reyes [facility] [place] [address] 10/26/2023 4:00 PM EDT Office Visit Cardiology at [address] [phone] Jaspreet Kinsey MD [facility] [place] [address] 10/28/2023 9:00 AM EDT Office [place] [address] 10/29/2023 10:00 AM EDT Clinical [place] [address] 10/29/2023 10:15 AM EDT Procedure [place] [address] 11/01/2023 5:00 PM EDT Office Visit Gastroenterology at [place] [phone] Selene Browning, PhD [facility] [place] [address] 11/22/2023 4:40 PM EDT Office Visit Cardiology at [address] [phone] Porsha Mcdaniels MD [facility] [place] [address] 12/13/2023 10:00 AM EDT Clinical Support [place] [phone] Lucero Romero, [place] [facility] [place] [address] documented as of this encounter Visit Diagnoses Diagnosis Chronic heart failure with preserved ejection fraction documented in this encounter Care Teams Patient Transporter Relationship Specialty Start Date End Date Polo Pearce PA [address] [place] [address] PCP - General Internal Medicine 06/09/21 documented as of this encounter
--- OUTSIDE RECORDS SUMMARY | 2023-09-20 14:37 | XMS_ITS | Encounter Summary ---
Author Organization [facility] Address [facility] [place] [address] Care Team Providers Care Blemish Remover Name Role Phone Polo Pearce Primary Care Provider [phone] Encounter Details Date Type Department Care Team (Late st Contact Info) Description 06/24/2022 Telephone Cardiology at [address] [place] [address] Jaspreet Kisney MD [facility] [place] [address] Social History Tobacco Use Types Packs/Day Years [...] Telephone Encounter - Nilda Mayes RN - 07/01/2022 11:[address] angiogram is scheduled July 30, 2022 at 10 am BMP order and instructions still to be done * Telephone Encounter - Trey Tsai RN - 06/30/2022 3:[address] Kinsey: Order for ccta rewritten * Telephone Encounter - Aide Glass - 06/30/2022 11:54 AM EDT [facility] is faxing over her ER visits since late February. She has been there four times. * Telephone Encounter - Brenda Callahan - 06/24/2022 11:41 AM EDT Pt called wanting to know what is going on with a referral Dr. Kinsey had mentioned. She said she has been waiting for someone to tell her what is next but nothing has happened. She does not know what her next steps are and she would like to know. Best # to reach her is work [phone] documented in this encounter Plan of Treatment Upcoming Encounters Date Type Department Care Team (Late st Contact Info) Description 10/08/2023 8:30 AM EDT Tech Visit [place] [phone] Jose Cook 10/08/2023 9:30 AM EDT Office [place] [phone] MD [facility] [place] [address] 10/21/2023 10:30 AM EDT Appointment [place] [phone] Mary Reyes APRN [facility] [place] [address] 10/21/2023 11:30 AM EDT App[place]ment [place] [address] Mary Reyes, [facility] [place] [address] 10/21/2023 12:30 PM EDT Appointment [place] [address] Mary Reyes, [facility] [place] [address] 10/21/2023 1:30 PM EDT Appoint[place] [address] Mary Reyes, [facility] [place] [address] 10/21/2023 2:30 PM EDT Appointment [place] [address] Mary Reyes, [facility] [place] [address] 10/26/2023 4:00 PM EDT Office Visit Cardiology at [address] [phone] Jaspreet Kinsey MD [facility] [place] [address] 10/28/2023 9:00 AM EDT Office Visit [place] [address] 10/29/2023 10:00 AM EDT Clinical Support [place] [address] 10/29/2023 10:15 AM EDT Procedure visit [place] [address] 11/01/2023 5:00 PM EDT Office Visit Gastroenterology at [place] [phone] Selene Browning, PhD [facility] [place] [address] 11/22/2023 4:40 PM EDT [place] [address] Porsha Mcdaniels MD [facility] [place] [address] 12/13/2023 10:00 AM EDT Clinical [place] [address] Lucero Romero, [place] [facility] [place] [address] documented as of this encounter Visit Diagnoses Not on filedocumented in this encounter Care Teams Blemish Remover Relationship Specialty Start Date End Date Polo Pearce PA [address] [place] [address] PCP - General Internal Medicine 06/09/21 documented as of this encounter
--- OUTSIDE RECORDS SUMMARY | 2023-09-20 14:37 | XMS_ITS | Encounter Summary ---
Author Organization [facility] Address [facility] [place] [address] Care Team Providers Care Freelance Copywriter Name Role Phone Polo Pearce Primary Care Provider [phone] Reason for Visit * Reason Comments Congestive Heart Failure HFpEF Encounter Details Date Type Department Care Team (Late st Contact Info) Description 10/08/2022 4:00 PM EDT Office Visit Cardiology at [address] [phone] Jaspreet Kinsey MD [facility] [place] [address] Pulmonary embolism, unspecified chronicity, unspecified pulmonary embolism type, unspecified whether acute cor pulmonale present; Heart failure with preserved ejection fraction, unspecified HF chronicity; Chronic heart failure with preserved ejection fraction [...] Sign Reading Time Taken Comments Blood Pressure 111/65 10/08/2022 4:12 PM EDT Pulse 60 10/08/2022 4:12 PM EDT Temperature - - Respiratory Rate - - Oxygen Saturation - - Inhaled Oxygen Concentration - - Weight 101.8 kg (224 lb 8 oz) 10/08/2022 4:12 PM EDT Height 162.6 cm (5' 4) 10/08/2022 4:12 PM EDT Body Mass Index 38.54 10/08/2022 4:12 PM EDT documented in this encounter Patient Instructions * Patient Instructions* Jaspreet Kinsey MD - 10/08/2022 4:00 PM EDT - I think your symptoms are due to having too much fluid on board - Stop imdur- it is probably causing your headaches - Stop aspirin - Increase Bumex (the water pill) to 2 mg twice a day until symptoms resolve - Call next week with urine output, weight, and symptoms - Limit daily sodium intake to less than 2000 mg * Attachments The following attachments cannot be sent through Care Everywhere. * Low Sodium Diet ([place]) * Low Sodium Foods: General Info ([place]) documented in this encounter Progress Notes * Jaspreet Kinsey MD - 10/08/2022 4:00 PM EDT Images from the original note were not included. Subjective: Patient ID: Indira Roque is a 52 y.o. female who presents on follow-up for: Chief Complaint Patient presents with Congestive Heart Failure HFpEF HPI Last seen by me 07/2022, at which time TTE was obtained to evaluate right sided structures due to the recent PE. It was unremarkable. PA pressure could not be estimated Intercurrently, patient was admitted to [facility] 09/2022. She presented after developing acute worseningof ongoing nyha ii-iii dyspnea after lifting her from the floor (he has multiple sclerosis and going through significnat difficulty with it). Initial evaluation demonstrated elevated biomarkers, worsening of baseline non-specific EKG changes, and ongoing shortness of breath associated with chest pain (these symptoms which have not changed significantly). Echocardiography demonstrated normal global and regional systolic function, no significant valve disease, and an IVC that is dilated and plethoric. She had a CCTA that demonstrated mild luminal disease, and was started on ASA for highcalcium score She was diagnosed as having vasospasm, and initiated on norvasc and imdur. Since discharge, she has had daily headaches which worsening upon laying flat. She has had no reprieve from dyspnea nor change in chest pain. She is quite exertionally fatigued. No bleeding on eliquis Notes reasonable UOP from bumex, but weight does not change. Admits that she does not monitor sodium intake. Current Outpatient Medications Medication Instructions albuterol (PROVENTIL HFA;VENTOLIN HFA) 90 mcg/Actuation inhaler 2 puffs, Inhalation, EVERY 4 HOURS PRN, Use with spacer amLODIPine (NORVASC) 5 mg, Oral, DAILY atorvastatin (LIPITOR) 80 mg, Oral, EVERY EVENING bumetanide (BUMEX) 2 mg, Oral, 2 TIMES DAILY diclofenac (VOLTAREN) 1 % Gel APPLY TO SINGLE KNEE ANKLE OR FOOT SOLES TOES TOP OF FOOT ONCE DAILY DULoxetine DR (CYMBALTA) 60 mg, DAILY Eliquis 5 mg tablet TAKE TWO TABLETS BY MOUTH TWICE A DAY FOR 7 DAYS THEN TAKE ONE TABLET BY MOUTH TWO TIMES A DAY empagliflozin (JARDIANCE) 10 mg, Oral, DAILY erenumab-aooe (Aimovig Autoinjector) 70 mg/mL Auto-Injector Subcutaneous, EVERY 30 DAYS fluticasone propionate (FLONASE) 50 mcg/actuation [place], Suspension 1 spray, Each Nare, DAILY gabapentin (NEURONTIN) 600 mg, Oral, NIGHTLY loratadine (CLARITIN) 10 mg, Oral, DAILY PRN nitroGLYcerin (NITROSTAT) 0.4 mg, Sublingual, EVERY 5 MIN PRN omeprazole (PRILOSEC) 20 mg, Oral, ONCE PRN, Infrequent use prochlorperazine (COMPAZINE) 5 mg, Oral, EVERY 6 HOURS PRN rOPINIRole (REQUIP) 2 mg, Oral, 2 TIMES DAILY topiramate (TOPAMAX) 100 mg, Oral, NIGHTLY traZODone (Desyrel) 50 mg Tablet TAKE 1 TO 2 TABLETS BY MOUTH AT BEDTIME Patient Active Problem List Diagnosis Pulmonary embolus 07/2022: right upper lobe. Started on eliquis 08/2022 TTE ([facility]): normal bi-v s/f. 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 Noted to carry most fluid in abdomen - Multiple echos since then, including 09/2022, without significant finding Restless legs Asthma Objective: BP 111/65 (BP Location (NBP): Left arm, Patient Position: Sitting, BP Cuff Sizes: Adult (25-34 cm)) Pulse 60 Ht 162.6 cm (5' 4) Wt 101.8 kg (224 lb 8 oz) BMI 38.54 kg/m?? Gen: pleasant female in NAD Cor: reg irreg, s1/s2 of nl character and amplitude, no m/r/g. Estimated RAP 11. Carotids with normal upstroke without bruit. Pulm: CTAB. Normal diaphragmatic movement without use of accessory muscles EKG: sinus with atrial bigeminy. Nssttw Assessment and Plan: (HFpEF) heart failure with preserved ejection fraction Reviewed that although vasospasm seems like an [...] week with weight, UOP, and symptom check Recommended she discontinue imdur, as not only is it not beneficial, but it is leading to daily headaches which seem classic for low-pressure type. She will also stop ASA, as although she has a high relative degree of coronary calcium, she does not have obstructive disease, and since ASA has littlerole for primary prevention and she is already on OAC, the risk:benefit was not in ASA's favor Regarding the PE, it does seem unprovoked, as she reports no evident inciting factor at the time. Will have a SDM regarding management on followup in January (which will be 6 months of OAC) RTC 1 months Jaspreet Kinsey MD documented in this encounter Miscellaneous Notes * Assessment & Plan Note - Jaspreet Kinsey MD - 10/08/2022 10:43 PM EDT Associated Problem(s): (HFpEF) heart failure with preserved ejection fraction Reviewed that although vasospasm seems like an [...] check Reviewed importance of low sodium diet. documented in this encounter Plan of Treatment Upcoming Encounters Date Type Department Care Team (Late st Contact Info) Description 10/08/2023 8:30 AM EDT Tech [place] [phone] Jose Cook 10/08/2023 9:30 AM EDT Office [place] [phone] MD [facility] [place] [place] [address] 10/21/2023 10:30 AM EDT Appointment [place] [address] Mary Reyes [facility] [place] [address] 10/21/2023 11:30 AM EDT Appointment [place] [address] Mary Reyes [facility] [place] [address] 10/21/2023 12:30 PM EDT Appointment [place] [address] Mary Reyes RN SUPPLEMENTAL [facility] [place] [address] 10/21/2023 1:30 PM EDT Appointment Nuclear Medicine at [place] [phone] Mary Reyes [facility] [place] [address] 10/21/2023 2:30 PM EDT Appointment Nuclear [place] [phone] Mary Reyes [facility] [place] [address] 10/26/2023 4:00 PM EDT Office Visit Cardiology at [address] [phone] Jaspreet Kinsey MD [facility] [place] [address] 10/28/2023 9:00 AM EDT Office Visit [place] [address] 10/29/2023 10:00 AM EDT Clinical Support [place] [address] 10/29/2023 10:15 AM EDT Procedure visit [place] [address] 11/01/2023 5:00 PM EDT Office [place] [phone] Selene Browning, PhD [facility] [place] [address] 11/22/2023 4:40 PM EDT Office Visit Cardiology at [address] [address] Porsha Mcdaniels MD [facility] [address] 12/13/2023 10:00 AM EDT Clinical Support [place] [phone] [facility] [place] [address] documented as of this encounter Visit Diagnoses Diagnosis Pulmonary embolism, unspecified chronicity, unspecified pulmonary embolism type, unspecified whether acute cor pulmonale present Heart failure with preserved ejection fraction, unspecified HF chronicity Chronic heart failure with preserved ejection fraction documented in this encounter Care Teams Freelance Copywriter Relationship Specialty Start Date End Date Polo Pearce PA [address] [place] [address] PCP - General Internal Medicine 06/09/21 documented as of this encounter
--- OUTSIDE RECORDS SUMMARY | 2023-09-20 14:37 | XMS_ITS | Encounter Summary ---
Author Organization [facility] [place] [address] Care Team Providers Care Senior Cytogenetic Technologist Name Role Phone Polo Pearce Primary Care Provider [phone] Encounter Details Date Type Department Care Team (Late st Contact Info) Description 07/29/2022 9:45 PM EDT Ancillary Procedure [place] [phone] Marcia Kamara MD [facility] [place] [address] Social History Tobacco Use Types Packs/Day Years [...] [place] [phone] Jose Cook 10/08/2023 9:30 AM EDT Office [place] [phone] MD [facility] [place] [address] 10/21/2023 10:30 AM EDT Appointment Nuclear Medicine at [address] Mary Reyes, [facility] [place] [address] 10/21/2023 11:30 AM EDT Appointment Nuclear Medicine at [address] Mary Reyes [facility] [place] [address] 10/21/2023 12:30 PM EDT Appointment Nuclear Medicine at [place] [phone] Mary Reyes [facility] [place] [address] 10/21/2023 1:30 PM EDT Appointment [place] [phone] Mary Reyes [facility] [place] [address] 10/21/2023 2:30 PM EDT Appointment [place] [phone] Mary Reyes [facility] [place] [address] 10/26/2023 4:00 PM EDT Office Visit Cardiology at [address] [phone] Jaspreet Kinsey MD [facility] [place] [address] 10/28/2023 9:00 AM EDT Office [place] [address] 10/29/2023 10:00 AM EDT Clinical [place] [address] 10/29/2023 10:15 AM EDT Procedure [place] [address] 11/01/2023 5:00 PM EDT Office Visit Gastroenterology at [place] [phone] Selene Browning, PhD [facility] [place] [place] [address] 11/22/2023 4:40 PM EDT Office Visit Cardiology at [address] [phone] Porsha Mcdaniels MD [facility] [place] [address] 12/13/2023 10:00 AM EDT Clinical [place] [phone] Lucero Romero, [facility] [place] [address] documented as of this encounter Procedures Procedure Name Priority Date/Time Associated Diagnosis Comments FILM LIBRARY STORAGE ONLY CT CHEST Routine 07/29/2022 9:43 PM EDT documented in this encounter Results * Film Library- Storage Only CT Chest (07/29/2022 9:43 PM EDT) Narrative [facility] - 07/29/2022 9:43 PM EDT This exam is auto-finalizing. It's purpose is for storage only. Marcia Kamara MD IMG FILM LIBRARY ORD ERABLES [facility] [place], [place] documented in this encounter Visit Diagnoses Not on filedocumented in this encounter Care Teams Senior Cytogenetic Technologist Relationship Specialty Start Date End Date Polo Pearce PA [address] [place] [address] PCP - General Internal Medicine 06/09/21 documented as of this encounter
--- OUTSIDE RECORDS SUMMARY | 2023-09-20 14:37 | XMS_ITS | Encounter Summary ---
Author Organization [facility] [place] [address] Care Team Providers Care Aluminum Molding Machine Operator Name Role Phone Polo Pearce Primary Care Provider [phone] Encounter Details Date Type Department Care Team (Late st Contact Info) Description 09/26/2022 [place] [address] Paulo Ramachandran Jr., MD [facility] [place] [address] Social History Tobacco Use Types Packs/Day Years [...] encounter Miscellaneous Notes * Telephone Encounter - Paulo Ramachandran Jr., MD - 09/26/2022 9:05 AM EDT Contacted by [facility] ED for cardiology consultation. History taking and objective data are per the OSH ED provider/staff member. Indira Roque 52 y.o. w / a pmh sig for obesity, DLD, HFpEF, HTN, and recurrent NSTEMI who presented with anterior to lest sided chest pain. The pain apparently began after helping her up off the floor, and has not completely resolved. It worsens with activity, and improves with rest, but has not actually gone away. The pain does not change with position or respiration, and there is no apparent chest wall tenderness. On presentation her vitals were notable for BP ranging in the mid to low 90s/50s, and this seemed to improve marginally with fluids. Troponin: Initial >800 EKG: sinus morgan w/ inferolateral ST segment depressions, that seem to be more prominent than prior A/P: The pts presentation is a bit odd. She has had recurrent episodes of chest pain and troponin elevation. About 3 years ago she underwent a cardiac cath in the setting of SOB and exertional angina, and this demonstrated normal coronaries. It is certainly possible todays presentation represents coronary vasospasm rather than a true Type I IA, however, given degree of troponin rise and the patients risk factors she will be accepted in transfer for further work up. The OSH provider will give full dose aspirin and therapeutic lovenox, and will consider SL nitro should her BP allow for it. documented in this encounter Plan of Treatment Upcoming Encounters Date Type Department Care Team (Late st Contact Info) Description 10/08/2023 8:30 AM EDT Tech Visit Vascular Lab at [place] [phone] Jose Cook 10/08/2023 9:30 AM EDT Office [place] [address] MD [facility] DR VASCULAR SURGERY [place], [place] [phone] 10/21/2023 10:30 AM EDT Appointment Nuclear Medicine at [place] [phone] Mary Reyes APRN [facility] [place] [address] 10/21/2023 11:30 AM EDT Appointment [place] [address] Mary Reyes [facility] [place] [address] 10/21/2023 12:30 PM EDT Appointment [place] [address] Mary Reyes [facility] [place] [address] 10/21/2023 1:30 PM EDT Appointment [place] [address] Mary Reyes [facility] [place] [address] 10/21/2023 2:30 PM EDT Appointment [place] [address] Mary Reyes [facility] [place] [address] 10/26/2023 4:00 PM EDT Office Visit Cardiology at [address] [place] [phone] Jaspreet Kinsey MD [facility] [place] [address] 10/28/2023 9:00 AM EDT Office [place] [address] 10/29/2023 10:00 AM EDT Clinical Support [place] [address] 10/29/2023 10:15 AM EDT Procedure [place] [address] 11/01/2023 5:00 PM EDT Office Visit Gastroenterology at [place] [phone] Selene Browning, PhD [facility] [place] [address] 11/22/2023 4:40 PM EDT Office Visit Cardiology at [place] [phone] Porsha Mcdaniels MD [facility] [place] [address] 12/13/2023 10:00 AM EDT Clinical [place] [phone] Lucero Romero, [place] [facility] [place] [address] documented as of this encounter Visit Diagnoses Not on filedocumented in this encounter Care Teams Aluminum Molding Machine Operator Relationship Specialty Start Date End Date Polo Pearce PA [address] [place] [address] PCP - General Internal Medicine 06/09/21 documented as of this encounter
--- OUTSIDE RECORDS SUMMARY | 2023-09-20 14:37 | XMS_ITS | Encounter Summary ---
Author Organization [facility] [place] [address] Care Team Providers Care Treasury Assistant Name Role Phone Polo Pearce Primary Care Provider [phone] Encounter Details Date Type Department Care Team (Late st Contact Info) Description 09/26/2022 External Results [place] [address] Social History Tobacco Use Types Packs/Day Years [...] AM EDT Tech [place] [phone] Jose Cook 10/08/2023 9:30 AM EDT Office [place] [phone] MD [facility] [place] [address] 10/21/2023 10:30 AM EDT Appointment [place] [address] Mary Reyes [facility] [place] [address] 10/21/2023 11:30 AM EDT Appointment Nuclear Medicine at [place] [phone] Mary Reyes [facility] [place] [address] 10/21/2023 12:30 PM EDT Appointment Nuclear Medicine at [address] Mary Reyes [facility] [place] [address] 10/21/2023 1:30 PM EDT Appointment [place] [address] Mary Reyes [facility] [place] [address] 10/21/2023 2:30 PM EDT Appointment [place] [address] Mary Reyes [facility] [place] [address] 10/26/2023 4:00 PM EDT Office Visit Cardiology at [address] [phone] Jaspreet Kinsey MD [facility] [place] [address] 10/28/2023 9:00 AM EDT Office [place] [address] 10/29/2023 10:00 AM EDT Clinical [place] [address] 10/29/2023 10:15 AM EDT Procedure [place] [address] 11/01/2023 5:00 PM EDT Office Visit Gastroenterology at [place] [phone] Selene Browning, PhD [facility] [place] [address] 11/22/2023 4:40 PM EDT Office Visit Cardiology at [address] [phone] Porsha Mcdaniels MD [facility] [place] [address] 12/13/2023 10:00 AM EDT Clinical Support Gastroenterology at [place] [phone] Lucero Romero, RD [facility] [place] [address] documented as of this encounter Procedures Procedure Name Priority Date/Time Associated Diagnosis Comments ECG SCAN Routine 09/26/2022 8:40 AM EDT documented in this encounter Results * Scan Doc: ECG (09/26/2022 8:40 AM EDT) Historical Provider MD LONNIE PRAKASH SCAN EX T ORDR/RSLT documented in this encounter Visit Diagnoses Not on filedocumented in this encounter Care Teams Treasury Assistant Relationship Specialty Start Date End Date Polo Pearce PA [address] [place] [address] PCP - General Internal Medicine 06/09/21 documented as of this encounter
--- OUTSIDE RECORDS SUMMARY | 2023-09-20 14:37 | XMS_ITS | Encounter Summary ---
[place] [address] Care Team Providers Care Ball Mill Operator Name Role Phone Polo Pearce Primary Care Provider [phone] Encounter Details Date Type Department Care Team (Late st Contact Info) Description 10/20/2022 8:00 AM EDT Tech [place] [phone] Florencia Callahan, [place] Pulmonary embolism, unspecified chronicity, unspecified pulmonary embolism type, unspecified whether acute cor pulmonale present Social History Tobacco Use Types Packs/Day Years [...] AM EDT Tech [place] [address]-1000 Jose Cook 10/08/2023 9:30 AM EDT Office [place] [phone] MD [facility] [place] [address] 10/21/2023 10:30 AM EDT Appointment Nuclear Medicine at [place] [phone] Mary Reyes, [facility] [address] 10/21/2023 11:30 AM EDT Appointment [place] [phone] Mary Reyes [facility] [address] 10/21/2023 12:30 PM EDT Appointment [place] [phone] Mary Reyes [facility] [place] [address] 10/21/2023 1:30 PM EDT Appointment [place] [phone] Mary Reyes [facility] [address] 10/21/2023 2:30 PM EDT Appointment [place] [address]-1000 Mary Reyes [facility] [address] 10/26/2023 4:00 PM EDT Office Visit Cardiology at [address] [phone] Jaspreet Kinsey MD [facility] [place] [address] 10/28/2023 9:00 AM EDT Office [place] [address] 10/29/2023 10:00 AM EDT Clinical [place] [address] 10/29/2023 10:15 AM EDT Procedure [place] [address] 11/01/2023 5:00 PM EDT Office Visit Gastroenterology at [place] [phone] Selene Browning, PhD [facility] [address] [place]NE [place] [phone] 11/22/2023 4:40 PM EDT Office Visit Cardiology at [address] [phone] Porsha Mcdaniels MD [facility] [place] [address] 12/13/2023 10:00 AM EDT Clinical Support [place] [phone] [facility] [place] [address] documented as of this encounter Procedures Procedure Name Priority Date/Time Associated Diagnosis Comments EKG 12-LEAD Routine 10/20/2022 10:03 AM EDT DUPLEX FOR DVT BILAT LEGS Routine 10/20/2022 8:06 AM EDT Pulmonary embolism, unspecified chronicity, unspecified pulmonary embolism type, unspecified whether acute cor pulmonale present documented in this encounter Results * EKG 12 Lead (10/20/2022 10:03 AM EDT) Ventricular rate 96 BPM MUSE SYSTEM QRS Duration 84 ms MUSE SYSTEM Q-T Interval 416 ms MUSE SYSTEM QTC Calculated (Bezet) 525 ms MUSE SYSTEM Calculated R [place] 41 degrees MUSE SYSTEM Calculated T [place] 40 degrees MUSE SYSTEM INTERPRETATION Atrial fibrillation Nonspecific ST and T wave abnormality Prolonged QTc Abnormal ECG When compared with ECG of 08-OCT-2022 16:19, Atrial fibrillation has replaced Sinus rhythm Vent. rate has increased BY ??34 BPM Nonspecific T wave abnormality, improved in Inferior leads QT has lengthened I personally reviewed the tracing and edited the fellows interpretation Confirmed by fellow Otis Rader ([id number]) on 10/20/2022 3:03:05 PM Confirmed by MD Hans, Porsha ([id number]) on 10/20/2022 7:08:19 PM MUSE SYSTEM 10/20/2022 10:0 3 AM EDT 10/20/2022 7:08 PM EDT Unknown ECG ORDERABLES MUSE SYSTEM * Duplex Study for DVT, Bilat legs (10/20/2022 8:06 AM EDT) Pathologist [facility] VB Text Report Department: Vascular Surgery Lab Patient: [id number] (LOIDA ROQUE) CPT: [id number] Referring Physician: MAMIE MARX ?? Phone: Indications: ??History PE, ? lower extremity DVT. ??Patient being anticoagulated. Findings: RIGHT: Patent common femoral vein and popliteal vein with spontaneous, respirophasic Doppler waveforms that respond normally to augmentation maneuvers. The common femoral vein, saphenofemoral junction, femoral vein through the thigh and popliteal vein are fully compressible. Patent posterior tibial and peroneal veins with no evidence of thrombus. LEFT: Patent common femoral vein and popliteal vein with spontaneous, respirophasic Doppler waveforms that respond normally to augmentation maneuvers. The common femoral vein, saphenofemoral junction, femoral vein through the thigh and popliteal vein are fully compressible. Patent posterior tibial and peroneal veins with no evidence of thrombus. Interpretation: RIGHT: ??No evidence of lower extremity deep venous thrombosis. LEFT: ??No evidence of lower extremity deep venous thrombosis. Comparison: ?? No previous study in our vascular lab database for comparison. Electronically Signed by: ANTONIETA CHAVEZ on 2022-10-20 04:05:07 PM [facility] VB Text Report End of Report [facility] 10/20/2022 8:06 AM EDT Mamie Marx APRN VASCULAR ORDERABLES [facility] documented in this encounter Visit Diagnoses Diagnosis Pulmonary embolism, unspecified chronicity, unspecified pulmonary embolism type, unspecified whether acute cor pulmonale present documented in this encounter Care Teams Ball Mill Operator Relationship Specialty Start Date End Date Polo Pearce PA [address] [place] [address] PCP - General Internal Medicine 06/09/21 documented as of this encounter
--- OUTSIDE RECORDS SUMMARY | 2023-09-20 14:37 | XMS_ITS | Encounter Summary ---
Author Organization [facility] Address [facility] [place] [address] Care Team Providers Care Gallery Or Museum Technician Name Role Phone Polo Pearce Primary Care Provider [phone] Encounter Details Date Type Department Care Team (Late st Contact Info) Description 07/28/2022 Telephone Cardiology at [address] [place] [address] Jaspreet Kinsey MD [facility] [place] [address] Social History Tobacco Use Types Packs/Day Years [...] Telephone Encounter - Nilda Mayes RN - 07/29/2022 11:01 AM EDT Indira accepts an appointment with Dr. Kinsey at 9:20 am tomorrow. * Telephone Encounter - Aide Glass - 07/29/2022 10:18 AM EDT Patient called and would like a call back @ [phone] * Telephone Encounter - Nilda Mayes, RN - 07/28/2022 10:57 AM EDT Indira says she is being discharged to home from [facility] today. Home diuretic therapy isn't working well. When I'm in the hospital, it really comes down again. She asks if the fluid pill needs to be changed. Plan: to request discharge records from [facility] when available. * Telephone Encounter - Brenda Callahan - 07/28/2022 10:44 AM EDT PT called she was advised to call this office. She has a few questions. Prior notes in chart she has been at [facility]. She would like a call back from a nurse please. [phone] documented in this encounter Plan of Treatment Upcoming Encounters Date Type Department Care Team (Late st Contact Info) Description 10/08/2023 8:30 AM EDT Tech [place] [phone] Jose Cook 10/08/2023 9:30 AM EDT Office Visit [place] [phone] MD [facility] [place] [address] 10/21/2023 10:30 AM EDT Appointment [place] [address] Mary Reyes APRN [facility] [place] [address] 10/21/2023 11:30 AM EDT Appointment Nuclear Medicine at [place] [phone] Mary Reyes, [facility] [place] [address] 10/21/2023 12:30 PM EDT Appointment Nuclear Medicine at [place] [phone] Mary Reyes [facility] [place] [address] 10/21/2023 1:30 PM EDT Appointment [place] [phone] Mary Reyes, [facility] [place] [address] 10/21/2023 2:30 PM EDT Appointment [place] [phone] Mary Reyes, [facility] [place] [address] 10/26/2023 4:00 PM EDT Office Visit Cardiology at [address] [phone] Jasperet Kinsey MD [facility] [place] [address] 10/28/2023 9:00 AM EDT Office [place] [address] 10/29/2023 10:00 AM EDT Clinical [place] [address] 10/29/2023 10:15 AM EDT Procedure [place] [address] 11/01/2023 5:00 PM EDT Office Visit Gastroenterology at [place] [phone] Selene Browning, PhD [facility] [place] [address] 11/22/2023 4:40 PM EDT [place] [address] Porsha Mcdaniels MD [facility] [place] [address] 12/13/2023 10:00 AM EDT Clinical Support Gastroenterology at [place] [phone] Lucero Romero, [place] [facility] [place] [address] documented as of this encounter Visit Diagnoses Not on filedocumented in this encounter Care Teams Gallery Or Museum Technician Relationship Specialty Start Date End Date Polo Pearce PA [address] [place] [address] PCP - General Internal Medicine 06/09/21 documented as of this encounter
--- OUTSIDE RECORDS SUMMARY | 2023-09-20 14:37 | XMS_ITS | Encounter Summary ---
Author Organization [facility] Address [facility] [place] [address] Care Team Providers Care Wireless Architect Name Role Phone Polo Pearce Primary Care Provider [phone] Reason for Visit * Reason Onset Date Comments Ascites 07/28/2022 Chest Pain 07/28/2022 Encounter Details Date Type Department Care Team (Late st Contact Info) Description 07/28/2022 Telephone Cardiology at [address] [phone] Jaspreet Kinsey MD [facility] [place] [address] Ascites; Chest Pain Social History Tobacco Use Types Packs/Day Years [...] Telephone Encounter - Nilda Mayes RN - 07/28/2022 10:10 AM EDT Indira is inpatient at [facility] today. Nurse Madison indicates she is alert and very cognizant of the situation. Tele - sinus morgan Chest pain - not severe chest pain, more like pressure Abdominal pain - severe due to ASCITES, comfort measures with warm packs OAC - Eliquis 10 mg bid Trop 1 previously 451 now 447 Metabolic panel results normal for Pot, Sod, Cl, Ca BUN 19 Creat 1.3 Plan: will remain inpatient at [facility] Outpatient CT heart planned on July 30 - cancel and reschedule (notified [facility] card lab [place]) documented in this encounter Plan of Treatment Upcoming Encounters Date Type Department Care Team (Late st Contact Info) Description 10/08/2023 8:30 AM EDT Tech Visit Vascular Lab at [place] [phone] Jose Cook 10/08/2023 9:30 AM EDT Office Visit Vascular Surgery at [place] [phone] MD [facility] [place] [address] 10/21/2023 10:30 AM EDT Appointment Nuclear Medicine at [address]1000 Mary Reyes [facility] [place] [address] 10/21/2023 11:30 AM EDT Appointment Nuclear Medicine at [place] [phone] Mary Reyes [facility] [place] [address] 10/21/2023 12:30 PM EDT Appointment Nuclear Medicine at [place] [phone] Mary Reyes [facility] [place] [address] 10/21/2023 1:30 PM EDT Appointment [place] [phone] Mary Reyes BLOOD TESTER [facility] [place] [address] 10/21/2023 2:30 PM EDT Appointment [place] [phone] Mary Reyes BLOOD TESTER [facility] [place] [address] 10/26/2023 4:00 PM EDT Office Visit Cardiology at [address] [phone] Jaspreet Kinsey MD [facility] [place] [address] 10/28/2023 9:00 AM EDT Office [place] [address] 10/29/2023 10:00 AM EDT Clinical [place] [address] 10/29/2023 10:15 AM EDT Procedure [place] [address] 11/01/2023 5:00 PM EDT Office Visit [place] [address] Selene Browning, PhD [facility] [place] [address] 11/22/2023 4:40 PM EDT Office Visit Cardiology at [address] [address] Porsha Mcdaniels MD [facility] [place] [address] 12/13/2023 10:00 AM EDT Clinical Support [place] [phone] Lucero Romero, [place] [facility] [place] [address] documented as of this encounter Visit Diagnoses Not on filedocumented in this encounter Care Teams Wireless Architect Relationship Specialty Start Date End Date Polo Pearce PA [address] [place] [address] PCP - General Internal Medicine 06/09/21 documented as of this encounter
--- OUTSIDE RECORDS SUMMARY | 2023-09-20 14:37 | XMS_ITS | Encounter Summary ---
[place] [address] Care Team Providers Care Cable Spooler Name Role Phone Polo Pearce Primary Care Provider [phone] Reason for Referral * Diagnostic Test (Routine) - Closed Specialty Diagnoses / Procedures Referred By Jayant harris Referred To Contact Diagnoses Pulmonary embolism, unspecified chronicity, unspecified pulmonary embolism type, unspecified whether acute cor pulmonale present Procedures Duplex Study for DVT, Bilat legs Mamie Marx APRN [facility] [place] [address] [facility] Vascular Lab [address], [place] [address] Referral ID Status Reason Start Date Expiration Date V isits Requested Visits Authorized [id number] Closed Specialty Service Requested 07/31/2022 07/31/2023 1 1 Encounter Details Date Type Department Care Team (Late st Contact Info) Description 07/31/2022 Orders [place] [address] Mamie Marx APRN [facility] [place] [address] Pulmonary embolism, unspecified chronicity, unspecified pulmonary embolism [...] AM EDT Tech Visit Vascular Lab at [place] [phone] Jose Cook 10/08/2023 9:30 AM EDT Office Visit Vascular Surgery at [place] [phone] MD [facility] [place] [address] 10/21/2023 10:30 AM EDT Appointment Nuclear Medicine at [place] [phone] Mary Reyes [facility] [place] [address] 10/21/2023 11:30 AM EDT Appointment Nuclear Medicine at [place] [phone] Mary Reyes [facility] [place] [address] 10/21/2023 12:30 PM EDT Appointment [place] [phone] Mary Reyes [facility] [place] [address] 10/21/2023 1:30 PM EDT Appointment [place] [address] Mary Reyes APRN [facility] [place] [address] 10/21/2023 2:30 PM EDT Appointment [place] [address] Mary Reyes APRN [facility] [place] [address] 10/26/2023 4:00 PM EDT Office Visit Cardiology at [address] [phone] Jaspreet Kinsey MD [facility] [place] [address] 10/28/2023 9:00 AM EDT Office Visit [place] [address] 10/29/2023 10:00 AM EDT Clinical Support [place] [address] 10/29/2023 10:15 AM EDT Procedure visit [place] [address] 11/01/2023 5:00 PM EDT Office [place] [address] Selene Browning, PhD [facility] [place] [address] 11/22/2023 4:40 PM EDT Office Visit Cardiology at [address] [address] Porsha Mcdaniels MD [facility] [place] [address] 12/13/2023 10:00 AM EDT Clinical Support Gastroenterology at [facility] [place] [address] [facility] [place] [address] documented as of this encounter Results * Duplex Study for DVT, Bilat legs (10/20/2022 8:06 AM EDT) VB Text Report Department: Vascular Surgery Lab Patient: [id number] (LOIDA ROQUE) CPT: [id number] Referring Physician: MAMIE MARX ?? Phone: Indications: [...] present documented in this encounter Care Teams Cable Spooler Relationship Specialty Start Date End Date Polo Pearce PA [address] [facility] 1 [place] [address] PCP - General Internal Medicine 06/09/21 documented as of this encounter
--- OUTSIDE RECORDS SUMMARY | 2023-09-20 14:37 | XMS_ITS | Encounter Summary ---
Author Organization [facility] Address [facility] [place] [address] Care Team Providers Care Tungsten Tender Name Role Phone Polo Pearce Primary Care Provider [phone] Reason for Visit * Reason Onset Date Comments Chest Pain 07/27/2022 Shortness of Breath 07/27/2022 Fatigue 07/27/2022 Encounter Details Date Type Department Care Team (Late st Contact Info) Description 07/27/2022 Telephone Cardiology at [address] [phone] Jaspreet Kinsey MD [facility] [place] [address] Chest Pain; Shortness of Breath; Fatigue Social History Tobacco Use Types Packs/Day Years [...] Telephone Encounter - Nilda Mayes RN - 07/27/2022 4:17 PM EDT Florencia has been admitted inpatient at [facility]. * Telephone Encounter - Aide Glass Talia - 07/27/2022 3:35 PM EDT Patient called and said she is now in [facility]. She said they did a CT scan and found blood clots on her lungs. She also has a fluid buildup. Please call her @ [phone] * Telephone Encounter - Nilda Mayes RN - 07/27/2022 10:04 AM EDT Indira called at 10 am to report that for 3 days she has had severe chest pain every day. Wednesdayand Wednesday it was worst and she took nitroglycerine without relief. She says at its worst yesterdayshe had abdominal pain with the chest pain. She is unable to tolerate a very short walk on same level to her car. She feels very weak right now. Recommendation: For chest pain that is unremitting, please go to nearest emergency department for assessment. Plan: Florencia will go to [facility] for evaluation. documented in this encounter Plan of Treatment Upcoming Encounters Date Type Department Care Team (Late st Contact Info) Description 10/08/2023 8:30 AM EDT Tech [place] [address] Jose Cook 10/08/2023 9:30 AM EDT Office Visit [place] [phone] MD [facility] [place] [address] 10/21/2023 10:30 AM EDT Appointment [place] [phone] Mary Reyes, [facility] [place] [address] 10/21/2023 11:30 AM EDT Appointment [place] [address] Mary Reyes, [facility] [place] [address] 10/21/2023 12:30 PM EDT Appointment [place] [address] Mary Reyes, [facility] [place] [address] 10/21/2023 1:30 PM EDT Appointment [place] [address] Mary Reyes, [facility] [place] [address] 10/21/2023 2:30 PM EDT Appointment [place] [address] Mary Reyes, [facility] [place] [address] 10/26/2023 4:00 PM EDT Office Visit Cardiology at [address] [phone] Jaspreet Kinsey MD [facility] [place] [address] 10/28/2023 9:00 AM EDT Office [place] [address] 10/29/2023 10:00 AM EDT Clinical [place] [address] 10/29/2023 10:15 AM EDT Procedure [place] [address] 11/01/2023 5:00 PM EDT Office Visit Gastroenterology at [place] [phone] Selene Browning, PhD [facility] [place] [address] 11/22/2023 4:40 PM EDT Office Visit Cardiology at [place] [phone] Porsha Mcdaniels MD [facility] [place] [address] 12/13/2023 10:00 AM EDT Clinical Support Gastroenterology at [place] [phone] Lucero Romero, [place] [facility] [place] [address] documented as of this encounter Visit Diagnoses Not on filedocumented in this encounter Care Teams Tungsten Tender Relationship Specialty Start Date End Date Polo Pearce PA [address] [place] [address] PCP - General Internal Medicine 06/09/21 documented as of this encounter
--- OUTSIDE RECORDS SUMMARY | 2023-09-20 14:37 | XMS_ITS | Encounter Summary ---
Author Organization Formerly [facility], 1928–1983 Address [facility] [place] [address] Care Team Providers Care Crew Team Member Name Role Phone Polo Pearce Primary Care Provider [phone] Reason for Visit * Reason Onset Date Comments Results 08/17/2022 Encounter Details Date Type Department Care Team (Late st Contact Info) Description 08/17/2022 Telephone Cardiology at [address] [phone] Jaspreet Kinsey MD [facility] [place] [address] Results Social History Tobacco Use Types Packs/Day Years [...] Telephone Encounter - Trey Tsai RN - 08/18/2022 9:[address] Kinsey: Echo reviewed. Looks good- normal pump function of both ventricles. Study suggests that there is noextra volume on board- would encourage to melisa today's weight as target Called patient and let her know. * Telephone Encounter - Nilda Mayes, RN - 08/17/2022 5:09 PM EDT ----- Message from Aide Glass sent at 08/17/2022 4:03 PM EDT ----- Echo done today is scanned. documented in this encounter Plan of Treatment Upcoming Encounters Date Type Department Care Team (Late st Contact Info) Description 10/08/2023 8:30 AM EDT Tech Visit [place] [phone] Jose Cook 10/08/2023 9:30 AM EDT Office [place] [phone] MD [facility] [place] [address] 10/21/2023 10:30 AM EDT Appointment Nuclear Medicine at [place] [phone] Mary Reyes [facility] [place] [address] 10/21/2023 11:30 AM EDT Appointment [place] [phone] Mary Reyes [facility] [place] [address] 10/21/2023 12:30 PM EDT Appointment [place] [phone] Mary Reyes [facility] [place] [address] 10/21/2023 1:30 PM EDT Appointment Nuclear Medicine at [place] [phone] Mary Reyes [facility] [address] 10/21/2023 2:30 PM EDT Appointment [place] [phone] Mary Reyes, [facility] [address] 10/26/2023 4:00 PM EDT Office Visit Cardiology at [address] [phone] Jaspreet Kinsey MD [facility] [place] [address] 10/28/2023 9:00 AM EDT Office Visit [place] [address] 10/29/2023 10:00 AM EDT Clinical Support [place] [address] 10/29/2023 10:15 AM EDT Procedure visit [place] [address] 11/01/2023 5:00 PM EDT Office [place] [phone] Selene Browning, PhD [facility] [place] [address] 11/22/2023 4:40 PM EDT Office Visit Cardiology at [address] [phone] Porsha Mcdaniels MD [facility] [place] [address] 12/13/2023 10:00 AM EDT Clinical [place] [phone] Lucero Romero RD [facility] [place] [address] documented as of this encounter Visit Diagnoses Not on filedocumented in this encounter Care Teams Crew Team Member Relationship Specialty Start Date End Date Polo Pearce PA Sb [address] [place] [address] PCP - General Internal Medicine 06/09/21 documented as of this encounter
--- OUTSIDE RECORDS SUMMARY | 2023-09-20 14:37 | XMS_ITS | Encounter Summary ---
[place] [address] Care Team Providers Care Compounding Technician Name Role Phone Polo Pearce Primary Care Provider [phone] Reason for Visit * Auth/Cert (Routine) Specialty Diagnoses / Procedures Referred By Jayant harris Referred To Contact Diagnoses NSTEMI (non-ST elevated myocardial infarction) NSTEMI Procedures EMERGENCY IPI Susannah Gómez MD [facility] [place] [address] [facility] Referral ID Status Reason Start Date Expiration Date Visits Re quested Visits Authorized [id number] 1 1 Encounter Details Date Type Department Care Team (Latest Contact Info) Description 09/26/2022 3:42 PM EDT - 09/28/2022 5:02 PM EDT Hospital Encounter Heart and Vascular Unit Level 4 [place] [address] Susannah Gómez MD [facility] [place] [address] Non-ST elevation myocardial infarction (NSTEMI) Discharge Disposition: Home Social History Tobacco Use [...] Sign Reading Time Taken Comments Blood Pressure 97/52 09/28/2022 2:10 PM EDT Pulse 58 09/28/2022 2:10 PM EDT Temperature 36.4 ??C (97.6 ??F) 09/28/2022 1 1:39 AM EDT Respiratory Rate 18 09/28/2022 2:10 PM EDT Oxygen Saturation 96% 09/28/2022 2:10 PM EDT Inhaled Oxygen Concentration - - Weight 101.7 kg (224 lb 1.6 oz) 09/28/2022 6:21 AM EDT Height 162.6 cm (5' 4) 09/26/2022 6:52 PM EDT Body Mass Index 38.47 09/26/2022 6:52 PM EDT documented in this encounter Discharge Summaries * Susannah Gómez MD - 09/28/2022 11:27 AM EDT Inpatient - Discharge Summary Patient Name: Loida Madrigal Patient Age: 52 y.o. Birthdate: 1970 Admit date: 09/26/2022 Discharge date and time: 09/28/2022 Attending Physician: Susannah Gómez MD Code Status: Full Code Follow-up Recommendations for Providers: -Patient had significant coronary calcium on coronary CT. Patient was discharged on aspirin and home apixiban. -Consider addition of further anti-anginals (imdur) if blood pressure tolerates and patient has continued chest pain. Discharge Diagnoses (Hospital Problems) and Secondary Diagnoses (Chronic Problems): Active Hospital Problems Diagnosis NSTEMI (non-ST elevated myocardial infarction) Resolved Hospital Problems No resolved problems to display. Procedures: Operations: * No surgery found * History of Presentation (per 09/26/2022 Admission H&P): Patient reports twinges of sharp pain that had occurred throughout the day yesterday, and severe pain in her chest that started around 4 AM this morning. She reports that her with MS fell overnight, when she was helping to lift her she developed severe chest pain. She reports takinga nitro tab which did not resolve the pain. The pain alleviated slightly and then worsened to the point that she presented to [facility] at around 630 or 7 AM this morning. At OSH: Patient presented with soft blood pressures of 90s/50s which improved with fluids. Initial troponins above 800. EKG with sinus bradycardia with inferolateral ST segment depressions, possibly increased from prior. OSH provider loaded full dose aspirin and started therapeutic Lovenox prior to transfer. On presentation to [facility] patient notes some constant chest pain that is approx 5/10 in severity centered over left chest. She has no shortness of breath or PND. On a regular day patient could walk about 30 feet on a flat surface before becoming shortness of breath. 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 She is under a considerable amount of stress taking care of her with MS and 2 young grandchildren. Hospital Course: Loida Madrigal was admitted to the Cardiology Service on 09/26/2022. The following acute and chronic medical issues were identified during this phase of their hospitalization, and managed as summarized below by problem: #Concern for coronary vasospasm vs Type I NSTEMI, type I non-STEMI ruled out #HLD #Nonobstructive CAD #Chronic HFpEF Patient was initially admitted to the Cardiology service with concern for possible NSTEMI. EKG at outside hospital showed significant inferolateral ST depressions. On arrival patient was feeling slightly improved with resolution of chest pain. She proceeded to have intermittent episodes of chest pain during the admission that were intermittently responsive to nitro. Troponin trend was 29-35-30. She underwent a coronary CT scan on 09/28 to evaluate for possible obstructive component. The CT scan revealed significant coronary calcium without obvious obstructive coronary disease. It was thought that her ischemic changes on EKG and troponin elevation were likely related to coronary vasospasm. She was started on amlodipine for vasospasm prevention. She was also started on aspirin due to significant CAD burden. Her metoprolol was stopped due to bradycardia and her lisinopril was stopped to make blood pressure room for amlodipine. DISCHARGE BASIC LABS Recent Labs 09/28/22 0349 09/27/22 0307 09/26/22 1750 WBC 6.4 6.1 5.4 HGB 13.7 13.3 14.5 HCT 41.6 40.9 42.4 PLATELET 224 223 182 Recent Labs 09/28/22 0349 09/27/22 0307 09/26/22 1750 NA 137 138 140 K 4.4 4.3 4.2 CL 108* 108* 108* CO2 18* 18* 19* BUN 26* 31* 28* CREATININE 1.01 1.19 1.02 MAGNESIUM -- -- 0.89 No results for input(s): BILITOT, BILIDIR, AST, ALT, ALKPHOS in the last 168 hours. Recent Labs 09/26/22 1750 INR 1.3 PTT 39* Pertinent radiology/diagnostic studies: CTA coronary showed mild obstructive CAD, moderate coronary calcification based on coronary calciumscore. Discharge Conditions/Prognosis: Upon discharge the pt is hemodynamically stable, fully ambulatory without requiring supplemental oxygen, afebrile and pain free Discharge to: home without services Discharge Medications: Your Medications New Medications Dose Details amLODIPine 5 mg tablet Commonly known as: Norvasc Take 1 tablet by mouth daily. Start taking on: September 29, 2022 5 mg Quantity: 90 tablet Refills: 3 aspirin 81 mg chewable tablet Take 81 mg by mouth daily. Start taking on: September 29, 2022 81 mg Quantity: 30 tablet Refills: 3 isosorbide mononitrate CR 30 mg ER 24 hr tablet Commonly known as: Imdur Take 1 tablet by mouth daily. 30 mg Quantity: 30 tablet Refills: 12 Continued medications, unchanged Dose Details albuteroL 90 mcg/actuation HFA Aerosol Inhaler Inhale 2 puffs into the lungs every 4 hours as needed. Use with spacer 2 puff Refills: 0 atorvastatin 80 mg tablet Commonly known as: Lipitor Take 1 tablet by mouth every evening. 80 mg Quantity: 90 tablet Refills: 3 bumetanide 1 mg tablet Commonly known as: Bumex Take 1 tablet by mouth daily. 1 mg Quantity: 90 tablet Refills: 1 diclofenac 1 % Gel Commonly known as: Voltaren APPLY TO SINGLE KNEE ANKLE OR FOOT SOLES TOES TOP OF FOOT ONCE DAILY Refills: [address] capsule Commonly known as: Cymbalta Take 60 mg by mouth daily. 60 mg Refills: 0 Eliquis 5 mg tablet TAKE TWO TABLETS BY MOUTH TWICE A DAY FOR 7 DAYS THEN TAKE ONE TABLET BY MOUTH TWO TIMES A DAY Generic drug: apixaban Refills: 0 empagliflozin 10 mg tablet Commonly known as: Jardiance Take 1 tablet by mouth daily. 10 mg Quantity: 90 tablet Refills: 1 erenumab-aooe 70 mg/mL Auto-Injector Commonly known as: Aimovig Autoinjector Inject subcutaneously every 30 days. Refills: 0 fluticasone propionate 50 mcg/actuation [place], Suspension Commonly known as: Flonase 1 spray by Each Nare route daily. 1 spray Refills: 0 gabapentin 300 mg capsule Commonly known as: Neurontin Take 600 mg by mouth nightly. 600 mg Refills: 0 loratadine 10 mg Tablet Commonly known as: Claritin Take 10 mg by mouth daily as needed. 10 mg Refills: 0 nitroGLYcerin 0.4 mg sublingual tablet Commonly known as: Nitrostat Place 1 tablet under the tongue every 5 minutes as needed for Chest pain. 0.4 mg Quantity: 30 tablet Refills: [address] capsule Commonly known [...] by mouth nightly. 100 mg Refills: 0 traZODone 50 mg tablet Commonly known as: Desyrel TAKE 1 TO 2 TABLETS BY MOUTH AT BEDTIME Refills: 0 STOPPED Medications lisinopriL 5 mg tablet Commonly known as: Zestril metoprolol succinate XL 25 mg ER 24 hr tablet Commonly known as: Toprol-XL spironolactone 25 mg tablet Commonly known as: Aldactone Updated Allergies/ADRs: Allergies Allergen Reactions Clobetasol Rash Other reaction(s): Skin Rash Instructions Given to Patient at Discharge: Patient Instructions You were admitted to the hospital due to chest pain and a CT scan of your heart arteries did not show significant blockages. We believe this chest pain is from spasm of your heart arteries. For this reason, we have started you on two medications, amlodipine and imdur, which will help prevent this from happening. These medications can affect your blood pressure; therefore, we have also stopped your metoprolol, lisinopril and spironolactone. You will have follow up with Dr. Kinsey outpatient. MEDICATION INSTRUCTIONS: At discharge, START - amlodipine (norvasc) 5 mg daily - imdur (isosorbide mononitrate) 30 mg daily - aspirin 81 mg daily Please continue your bumex 1 mg daily. At discharge, STOP - metoprolol - lisinopril - spironolactone General Instructions None Future Appointments and Orders Future Appointments and Orders Future Appointments Provider Department Dept Phone 10/08/2022 4:00 PM Jaspreet Kinsey MD Cardiology at [place] Arrive at: [facility] [address] [phone] 10/20/2022 8:00 AM Florencia Callahan [place] Vascular Lab at [facility] Arrive at: [facility] [address]V [phone] 10/20/2022 9:00 AM Umberto Abbott MD Vascular Surgery at [facility] Arrive at: [facility] [address] [phone] Provider Contact Information: J[address] [facility] [id number] Discharge References/Attachments: Discharge References/Attachments None documented in this encounter Discharge Instructions * Patient Instructions* Ciro Lovell Domingo - 09/28/2022 3:35 PM EDT You were admitted to the hospital due to chest pain and a CT scan of your heart arteries did not show significant blockages. We believe this chest pain is from spasm of your heart arteries. For this reason, we have started you on two medications, amlodipine and imdur, which will help prevent this from happening. These medications can affect your blood pressure; therefore, we have also stopped your metoprolol, lisinopril and spironolactone. You will have follow up with Dr. Kinsey outpatient (youhave an appointment scheduled on October 08, 2022 at 4:00 pm in [place]). MEDICATION INSTRUCTIONS: At discharge, START - amlodipine (norvasc) 5 mg daily - imdur (isosorbide mononitrate) 30 mg daily - aspirin 81 mg daily Please continue your bumex 1 mg daily. At discharge, STOP - metoprolol - lisinopril - spironolactone documented in this encounter Medications at Time of Discharge Medication Sig Dispensed Refills Start Date End Date empagliflozin (Jardiance) 10 mg TabletIndications:Ch ronic heart failure with preserved ejection fraction Take 1 tablet by mouth daily. 90 tablet 1 06/11/2021 rOPINIRole (Requip) 1 mg Tablet Take 2 mg by mouth 2 times daily. 07/16/2020 loratadine (Claritin) 10 mg Tablet Take 10 mg by mouth daily as needed. fluticasone propionate (FLONASE) 50 mcg/actuation [place], Suspension 1 spray by Each Nare route [...] 4 hours as needed. Use with spacer amLODIPine (Norvasc) 5 mg tablet Take 1 tablet by mouth daily. 90 tablet 3 09/29/2022 02/11/2023 aspirin 81 mg chewable tablet Take 81 mg by mouth daily. 30 tablet 3 09/29/2022 10/08/2022 isosorbide mononitrate CR (Imdur) 30 mg ER 24 hr tablet Take 1 tablet by mouth daily. 30 tablet 12 09/28/2022 10/08/2022 atorvastatin (Lipitor) 80 mg tablet Take 1 tablet by mouth every evening. 90 tablet 3 09/28/2022 04/22/2023 Eliquis 5 mg tablet TAKE TWO TABLETS BY MOUTH TWICE A DAY FOR 7 DAYS THEN TAKE ONE TABLET BY MOUTH TWO TIMES A DAY 07/28/2022 02/11/2023 bumetanide (Bumex) 1 mg TabletIndications:Ch ronic heart failure with preserved ejection fraction Take 1 tablet by mouth daily. 90 tablet 1 04/16/2022 10/08/2022 omeprazole (PriLOSEC) 20 mg Capsule, Delayed Release(E.C.) Take 20 mg by mouth daily. Infrequent use 01/27/2022 08/25/2023 prochlorperazine (Compazine) 5 mg tablet Take 5 mg by mouth every 6 hours as needed for Nausea. 05/10/2023 erenumab-aooe (Aimovig Autoinjector) 70 mg/mL Auto-Injector Inject subcutaneously every 30 days. 08/13/2020 04/22/2023 nitroGLYcerin (Nitrostat) 0.4 mg Tablet, Sublingual Place 1 tablet under the tongue every 5 minutes as needed for Chest pain. 30 tablet 1 06/14/2021 11/17/2022 traZODone (Desyrel) 50 mg Tablet TAKE 1 TO 2 TABLETS BY MOUTH AT BEDTIME 07/05/2020 11/17/2022 diclofenac (VOLTAREN) 1 % Gel APPLY TO SINGLE KNEE ANKLE OR FOOT SOLES TOES TOP OF FOOT ONCE DAILY 06/21/2020 11/17/2022 documented as of this encounter Progress Notes * Susannah Gómez MD - 09/27/2022 10:30 AM EDT CARDIOLOGY S2 Daily Progress Note Pager [phone] Admit Date: 09/26/2022 Encounter Date: September 27, 2022 Anticipated Discharge Date: Hospital Day: 1 ID: Loida Madrigal is a 52 y.o. female w/ PMH of MARYLOU (bipap), never smoker, PE in 07/2022 on eliquis, SVT, HFpEF, RLS, carpel tunnel, asthma who is presenting with chest pain concerning for possible NSTEMI with ST depressions on OSH EKG and slightly elevated troponin. 24 Hour Events/Subjective: Yesterday: Admitted yesterday evening. Troponin 29-35-30. Chest pain improved en route to [facility], some improvement with nitro. Overnight: No acute events, pt requesting home ropinerole Today: Patient reports she is still having intermittent episodes of chest pain. Less severe than yesterday, slightly worse with sitting up/leaning forward. Otherwise feels about her baseline. Objective: Last value Range last 24 hrs Temp: 36.2 ??C (97.2 ??F) Temp: [36.2 ??C (97.2 ??F)-36.6 ??C (97.9 ??F)] Heart Rate: 58 Heart Rate from SpO2: 58 bpm Heart Rate: [46-58] BP: 118/74 BP: (92-118)/(56-74) Resp: 16 Resp: [16-19] SpO2: 96 % SpO2: [94 %-97 %] Height: 162.6 cm (5' 4) Weight: 101.5 kg (223 lb 12.8 oz) BMI (Calculated): 37.76 BMI Classification: Obese Intake/Output Summary (Last 24 hours) at 09/27/2022 1031 Last data filed at 09/27/2022 0721 Gross per 24 hour Intake 440 ml Output -- Net 440 ml Patient Vitals for the past 72 hrs: Weight 09/27/22 0439 101.5 kg (223 lb 12.8 oz) 09/26/22 1852 99.8 kg (220 lb) EXAM: Physical Exam Constitutional: Appearance: She is obese. HENT: Nose: Nose normal. Mouth/Throat: Mouth: Mucous membranes are moist. Pharynx: Oropharynx is clear. Eyes: Conjunctiva/sclera: Conjunctivae normal. Cardiovascular: Rate and Rhythm: Normal rate and regular rhythm. Pulses: Normal pulses. Heart sounds: Normal heart sounds. Comments: No chest wall tenderness Pulmonary: Effort: Pulmonary effort is normal. Breath sounds: No wheezing or rales. Abdominal: General: Abdomen is flat. Palpations: Abdomen is soft. Musculoskeletal: Right lower leg: No edema. Left lower leg: No edema. Skin: General: Skin is warm and dry. Capillary Refill: Capillary refill takes 2 to 3 seconds. Neurological: General: No focal deficit present. Mental Status: She is alert and oriented to person, place, and time. Assessment: Loida Madrigal is a 52 y.o. female w/ PMH of MARYLOU (bipap), never smoker, PE in 07/2022 on eliquis, SVT, HFpEF, RLS, carpel tunnel, asthma on HD# 0 for chest pain with radiation to the L neck/jaw with concern for vasospastic angina. Overall high suspicion for possible vasospastic angina. She does have true ischemic changes seen onEKG at OSH on 09/26 with corresponding rise in troponin. Last LHC was clear 3 years ago, and it is unlikely she would develop significant coronary disease in this timeframe. Regardless she will need a coronary evaluation. Suspect that she has a vasospastic component given high stress triggers and long-standing history of chest pain. 09/27/22 Plan to stop patient's lisinopril and up-titrate amlodipine to maximize anti- vasospastic component.Can consider addition of long acting nitrates if needed for chest pain control. Will plan for coronary CT tomorrow to evaluate for ischemic component. Otherwise patient is doing well and chest pain has improved since admission. Plan: #Concern for Prinzmental angina vs Type I NSTEMI #HLD Continue atorvastatin 80 mg daily S/p aspirin load, aspirin 81 mg daily (consider stopping after CTA on Wednesday) Coronary CTA this admission, possibly Wednesday TTE done, follow-up formal read Consider introducing Imdur 30 mg as blood pressure allows Increase amlodipine to 5mg tomorrow Anticoagulation Therapeutic Lovenox twice daily CRP 3 #HFpEF Stop home lisinopril 5 mg Held Bumex 1 mg Held home spironolactone 25 mg Hold home Jardiance 10 mg #History of PE Held home apixaban 5 mg twice daily #History of SVT Home metoprolol 12.5mg XL #Home Medications Continued home gabapentin 600 mg nightly Continue home topiramate 100 mg nightly Continue home duloxetine 60 mg daily Diet: Cardiac diet Last BM documented: 09/25/22 DVT Prophylaxis: LMWH DOAC Cardiology Staff Addendum Loida Madrigal is a 52 y.o. female whom I saw today with Dr. Leon. I have personally interviewed and examined the patient and reviewed appropriate data, including labs, ECGs, and other diagnostic studies. I agree with the principal findings documented above, with additions and exceptions as below. The assessment and plan were formulated in discussion with me. In brief, patient with chronic chest pain, ASCVD risk factors but normal coronaries on cath in 2019who presents with chest pain, elevated troponin, and inferolateral ST segment depression. Currentlychest pain-free. Adherent to anticoagulation, so likelihood of PE low. In addition, despite dynamicECG changes, ACS seems clinically unlikely. Treating currently with anticoagulation, high intensitystatin, aspirin. To my assessment, MIN[place]A as a result of vasospasm seems most likely. Initiate amlodipine, to which the patient is na??ve. Likely coronary CTA tomorrow, and would anticipate dischargehome if that is unremarkable. Susannah Gómez MD, ALEXEI, FACC, FACP, FASE Cardiovascular Medicine documented in this encounter H&P Notes * Susannah Gómez MD - 09/26/2022 4:01 PM EDT Cardiology Admission H&P PATIENT INFORMATION Name: Loida Madrigal : 1970 Date of Admission: 09/26/2022 Reason for Cardiology Admission: Chest pain HISTORY OF PRESENT ILLNESS ID: Loida Madrigal is a 52 y.o. female w/ PMH of MARYLOU (bipap), never smoker, PE in 07/2022 on eliquis, SVT, HFpEF, RLS, carpel tunnel, asthma who is presenting with chest pain with radiation to theL neck/jaw. HPI: Patient reports twinges of sharp pain that had occurred throughout the day yesterday, and severe pain in her chest that started around 4 AM this morning. She reports that her with MS fell overnight, when she was helping to lift her she developed severe chest pain. She reports takinga nitro tab which did not resolve the pain. The pain alleviated slightly and then worsened to the point that she presented to [facility] at around 630 or 7 AM this morning. At OSH: Patient presented with soft blood pressures of 90s/50s which improved with fluids. Initial troponins above 800. EKG with sinus bradycardia with inferolateral ST segment depressions, possibly increased from prior. OSH provider loaded full dose aspirin and started therapeutic Lovenox prior to transfer. On presentation to [facility] patient notes some constant chest pain that is approx 5/10 in severity centered over left chest. She has no shortness of breath or PND. On a regular day patient could walk about 30 feet on a flat surface before becoming shortness of breath. 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 She is under a considerable amount of stress taking care of her with MS and 2 young grandchildren. ROS (positive bolded): GEN: fever, chills HEENT: headache, dizziness, vertigo, vision changes CV: chest pain, shortness of breath, dyspnea on exertion, palpitations, orthopnea, paroxysmal nocturnal dyspnea PULM: cough, wheezing, phlegm production GI: nausea, vomiting, abd pain : dysuria, urgency, frequency NEURO: motor/sensation changes PERTINENT HISTORY PMH Past Medical History: Diagnosis Date Asthma Depression Endometriosis S/p hysterectomy Insomnia Migraine Obesity (BMI 30-39.9) MARYLOU on CPAP Seasonal allergies PSH Past Surgical History: Procedure Laterality Date HYSTERECTOMY Family History Family History Problem Relation Age of Onset Hypertension Mother Arrhythmia Father Heart Surgery Father Myocardial Infarction Father Coronary Artery Disease Father Social History Tobacco, alcohol, no IVDU, no other substance Allergies Allergies Allergen Reactions Clobetasol Rash Other reaction(s): Skin Rash Home Meds Current Outpatient Medications Medication Instructions albuterol (PROVENTIL HFA;VENTOLIN HFA) 90 mcg/Actuation inhaler 2 puffs, Inhalation, EVERY 4 HOURS PRN, Use with spacer atorvastatin (LIPITOR) 80 mg, Oral, EVERY EVENING bumetanide (BUMEX) 1 mg, Oral, DAILY diclofenac (VOLTAREN) 1 % Gel APPLY [...] 30 DAYS fluticasone propionate (FLONASE) 50 mcg/actuation [place], Suspension 1 spray, Each Nare, DAILY gabapentin (NEURONTIN) 600 mg, Oral, NIGHTLY lisinopriL (Zestril) 5 mg tablet No dose, route, or frequency recorded. loratadine (CLARITIN) 10 mg, Oral, DAILY PRN metoprolol succinate XL (TOPROL-XL) 25 mg, Oral, DAILY nitroGLYcerin (NITROSTAT) 0.4 mg, [...] TO 2 TABLETS BY MOUTH AT BEDTIME OBJECTIVES Vitals Last value Range last 24 hrs Temperature Temp: 36.5 ??C (97.7 ??F) Temp: [36.5 ??C (97.7 ??F)] Heart Rate Heart Rate: 52 Heart Rate: [52-55] Blood Pressure BP: 100/56 BP: (100-104)/(56-64) Art Line BP BP (Arterial Line): -- MAP (NBP): [68 mmHg-76 mmHg] Respiratory Rate Resp: 17 Resp: [17] SpO2 SpO2: 96 % SpO2: [96 %] Oxygen Delivery Oxygen Therapy Reason for Oxygen: Patient currently on room air No intake or output data in the 24 hours ending 09/26/221806 No data found. Physical Exam GENERAL: NAD. AAO x 3 HEENT: NCAT. EOMI CARDIAC: RRR, S1S2, No M/R/G. JVP 8 cm. Trace LE Edema PULMONARY: Normal work of breathing. CTAB. No crackles/wheezes/rhonchi ABDOMINAL: +BS, NDNT SKIN: No skin lesions noted NEURO: Moving all 4 extremities, motor sensation grossly intact PSYCH: Mood appropriate Labs: pending hsTrop: Troponin I 793 at OSH, EK09/26/[address] and T wave abnormality, consider inferior ischemia TTE: in AM ASSESSMENT & PLAN Loida Madrigal is a 52 y.o. female w/ PMH of MARYLOU (bipap), never smoker, PE in 07/2022 on eliquis, SVT, HFpEF, RLS, carpel tunnel, asthma on HD# 0 for chest pain with radiation to the L neck/jaw with concern for vasospastic angina. Patient presented initially to outside hospital with symptoms of chest pain with radiation to the left neck. Pain has persistent at a 5 out of 10, and decreased to 3 out of 10 currently. Patient had a prior heart catheterization approximately 3 years ago which revealed clean coronary arteries. Patient reports being under a significant amount of stress. It is possible that vasospastic angina couldplay a part in her transient ST depressions on EKG and mild troponin elevations. Trending troponinsto monitor for ACS. Patient received sublingual nitroglycerin and had improvement in her pain. We will consider placing patient on nitroglycerin drip if pain recurs. #Type 1 NSTEMI vs Prinzmental angina #HLD Labs: CBC, BMP, A1c, lipids, CRP, troponins, TSH, proBNP, coags Continued atorvastatin 80 mg daily S/p aspirin load, aspirin 81 mg daily Coronary CTA this admission, possibly Wednesday TTE tomorrow AM As needed nitro for chest pain Consider introducing Imdur 30 mg as blood pressure allows Starting amlodipine 2.5 mg tonight for afterload reduction and coronary artery stabilization Anticoagulation Therapeutic Lovenox twice daily CRP pending for evaluation of myopericarditis #HFpEF Hold home lisinopril 5 mg Held Bumex 1 mg Held home spironolactone 25 mg Hold home Jardiance 10 mg #History of PE Held home apixaban 5 mg twice daily #History of SVT continue home metoprolol succinate 25 mg #Home Medications Continued home gabapentin 600 mg nightly Continue home topiramate 100 mg nightly Continue home duloxetine 60 mg daily #Routine: DVT PPx: Therapeutic lovenox GI PPx: none Diet: Cardiac diet Code Status: Full code Vimal Holman MD Internal Medicine, PGY-1 Cardiology M1-S1, #3011 Cardiology M1-S2, #1211 09/26/2022, 6:07 PM Cardiology Staff Addendum Loida Madrigal is a 52 y.o. female whom I saw today with Dr. Holman. I have personally interviewed and examined the patient and reviewed appropriate data, including labs, ECGs, and other diagnostic studies. I agree with the principal findings documented above, with additions and exceptions as below. The assessment and plan were formulated in discussion with me. In brief, patient with chronic chest pain, ASCVD risk factors but normal coronaries on cath in 2019who presents with chest pain, elevated troponin, and inferolateral ST segment depression. Currentlychest pain-free. Adherent to anticoagulation, so likelihood of PE low. In addition, despite dynamicECG changes, ACS seems clinically unlikely. Treating currently with anticoagulation, high intensitystatin, aspirin. To my assessment, MINOCA as a result of vasospasm seems most likely. Initiate amlodipine, to which the patient is na??ve. Likely coronary CTA tomorrow, and would anticipate dischargehome if that is unremarkable. Susannah Gómez MD, ALEXEI, FACC, FACP, FASE Cardiovascular Medicine documented in this encounter Miscellaneous Notes * Initial Assessments - Axel Lozano RN - 09/28/2022 3:50 PM EDT Office of Care Management Initial Assessment/Discharge Note Medical record reviewed. Plan of care and patient status discussed with direct care Registered Nurse and/or Care Team in multidisciplinary rounds. Reason for Hospitalization: shortness of breath and shoulder pain Last COVID test: Lab Results Component Value Date [id number] Not Detected 06/13/2021 Present on Admission: NSTEMI (non-ST elevated myocardial infarction) Hospitalizations Within the Past 30 Days: no previous admission in last 30 days Patient receiving hospital care under Inpatient status. Admission order reviewed. Health/Prescription Coverage: Primary Insurance: [employer] [place] Payor: [employer] [place] / Plan: [place] EXCHANGE / Product Type: *No Product type* / Secondary Insurance: N/A ; Prescription Coverage: Preferred Pharmacy: [id number] - [place], [place] - [address] [place] [address] [place] [address] [place], [place] - [address] [address] [facility] [address] [facility] [address] Advance Care Planning: Attempt Cardiopulmonary Resuscitation - Inpatient <no information> - Current Functional Ability: Independent Functional Status Prior to Admission: Home Environment: . Current Living Arrangements: home/apartment/condo. Accessibility Concerns: . Current DME: [address] [facility] [phone] Social & Family Supports: All names listed below confirmed with patient as current and correct Extended Emergency Contact Information Primary Emergency Contact: Boby Madrigal Mobile Relation: Spouse Secondary Emergency Contact: LIZETTMANDICINDYIE Mobile Relation: Mother Current Care Provided by: Transportation: no concerns Transportation Anticipated: family or friend will provide Assessment: Patient with no apparent RNCM/SW needs at this time. No housing, transportation, insurance, resources concerns identified at this time. Supports in place to achieve a safe post-hospital transition. No identified barriers to accessing necessary care and/or follow-up after discharge. Plan: Patient to d/c to home via private vehicle when medically ready. Registered Nurse Teacher Citizenship / General Office Dispatcher will continue to follow patient???s progress and remain available if situation changes for coordination of care, psychosocial support and/or discharge planning. Office of Care Management Fab Lozano MSN, RN CM Case Management [phone] * Plan of Care - Antonio Swann RN - 09/28/2022 3:43 PM EDT Patient discharged to entrance 2, vitals as charted. No complaints of dizziness, or SOB. Some angina still present, provider spoke with Loida about goals of treatment and new medication changes which will hopefully address angina. AVS reviewed with patient and all questions answered. Home in private vehicle with services. documented in this encounter Plan of Treatment Upcoming Encounters Date Type Department Care Team (Late st Contact Info) Description 10/08/2023 8:30 AM EDT Tech Visit Vascular Lab at [place] [phone] Jose Cook 10/08/2023 9:30 AM EDT Office [place] [phone] MD [facility] [place] [address] 10/21/2023 10:30 AM EDT Appointment Nuclear Medicine at [address] Mary Reyes, [facility] [place] [address] 10/21/2023 11:30 AM EDT Appointment Nuclear Medicine at [place] [phone] Mary Reyes, [facility] [place] [address] 10/21/2023 12:30 PM EDT Appointment Nuclear Medicine at [place] [phone] Mary Reyes, [facility] [place] [address] 10/21/2023 1:30 PM EDT Appointment [place] [phone] Mary Reyes [facility] [place] [address] 10/21/2023 2:30 PM EDT Appointment [place] [address] Mary Reyes APRN [facility] [place] [address] 10/26/2023 4:00 PM EDT Office Visit Cardiology at [address] [phone] Jaspreet Kinsey MD [facility] [place] [address] 10/28/2023 9:00 AM EDT Office Visit [place] [address] 10/29/2023 10:00 AM EDT Clinical Support [place] [address] 10/29/2023 10:15 AM EDT Procedure visit [place] [address] 11/01/2023 5:00 PM EDT Office [place] [phone] Selene Browning, PhD [facility] [place] [address] 11/22/2023 4:40 PM EDT Office Visit Cardiology at [address] [phone] Porsha Mcdaniels MD [facility] [place] [address] 12/13/2023 10:00 AM EDT Clinical Support [place] [phone] [facility] [place] [address] documented as of this encounter Procedures Procedure Name Priority Date/Time Associated Diagnosis Comments BLOOD GAS VENOUS ([facility]) Routine 3:39 PM EDT EKG 12-LEAD STAT 09/28/2022 1:58 PM EDT Non-ST elevation myocardial infarction (NSTEMI) CT ANGIOGRAM CORONARY ARTERIES Routine 09/28/2022 8:37 AM EDT HC VENIPUNCTURE STAT 09/28/2022 6:56 AM EDT HC TROPONIN T STAT 09/28/2022 3:49 AM EDT HEMOGRAM Routine 09/28/2022 3:49 AM EDT DIFFERENTIAL, AUTOMATED Routine 09/29/19 3:49 AM EDT HC VENIPUNCTURE Routine 09/28/2022 3:49 AM EDT BASIC METABOLIC PANEL (NON-FASTING) Routine 09/28/2022 3:49 AM EDT XR CHEST ONE VIEW Routine 09/28/2022 3:3 7 AM EDT EKG 12-LEAD Routine 09/28/2022 3:11 AM EDT Non-ST elevation myocardial infarction (NSTEMI) ECHO COMPLETE W CONTRAST Routine 09/27/2022 9:42 AM EDT Non-ST elevation myocardial infarction (NSTEMI) HC TROPONIN T STAT 09/27/2022 3:07 AM EDT HEMOGRAM Routine 09/27/2022 3:07 AM EDT DIFFERENTIAL, AUTOMATED Routine 09/28/19 3:07 AM EDT HC CBC,PLT & AUTO DIFF Routine 3:07 AM EDT HC HEMOGLOBIN A1C Routine 09/27/2022 3:0 7 AM EDT LIPID PANEL (REFLEX DIRECT LDL) Routine 09/27/2022 3:07 AM EDT BASIC METABOLIC PANEL (NON-FASTING) Routine 09/27/2022 3:07 AM EDT HC TROPONIN T STAT 09/26/2022 8:55 PM EDT HEMOGRAM Routine 09/26/2022 5:50 PM EDT DIFFERENTIAL, AUTOMATED Routine 09/27/19 5:50 PM EDT GOLD TUBE HOLD Routine 09/26/2022 5:50 PM EDT HC PARTIAL THROMBOPLASTIN TIME Routine 09/26/2022 5:50 PM EDT HC PROTHROMBIN TIME Routine 09/26/2022 5 :50 PM EDT HC VENIPUNCTURE Routine 09/26/2022 5:50 PM EDT HC THYROID STIMULATING HORMONE, SERUM Routine 09/26/2022 5:50 PM EDT HC PROBNP Routine 09/26/2022 5:50 PM EDT HC MAGNESIUM, SERUM Routine 09/26/2022 5 :50 PM EDT HC CALCIUM, SERUM Routine 09/26/2022 5:5 0 PM EDT BASIC METABOLIC PANEL (NON-FASTING) Routine 09/26/2022 5:50 PM EDT EKG 12-LEAD Routine 09/26/2022 5:33 PM EDT HC TROPONIN T STAT 09/26/2022 5:01 PM EDT CRP, ACUTE INFLAMMATION STAT 09/27/19 5:01 PM EDT documented in this encounter Results * Blood Gas Venous ([facility]) (09/28/2022 3:39 PM EDT) pH Salbador 7.32 7.32 - 7.42 [facility] pCO2 [place] 45 41 - 51 mmHg [facility] pO2 [place] 30 25 - 40 mmHg [facility] HCO3 [place] 22.8 mmol/L [facility] BE [place] -3.3 mmol/L [facility] Hgb Blood Gas 15.2 11.7 - 15.5 g/dL [facility] O2HB [place] 52.4 % [facility] COHB [place] 1.0 % [facility] Comment: Nonsmokers: 0.5-1.5% COHB Smokers: Variable, but usually less than 10% Toxic: 20-30% COHB Lethal: Greater than 60% COHB METHB [place] 0.3 <=1.5 % [facility] Na Whole Blood 139 135 - 145 mmol/L [facility] K Whole Blood 4.6 3.5 - 5.0 mmol/L [facility] Comment: Please note: Patients with WBC >100,000 may have falsely elevated Potassium levels. Contact the Clinical Chemistry Laboratory if there are any questions. ICa Whole Blood 1.23 1.15 - 1.33 mmol/L [facility] Comment: Note: ??Total bilirubin higher than 20 mg/dL may lead to falsely low ionized calcium. CL Whole Blood 104 98 - 107 mmol/L [facility] Gluc Whole Bld 87 65 - 199 mg/dL [facility] Comment:Diabetes: >=200 mg/d L plus symptoms Lactate WB 1.3 0.5 - 2.2 mmol/L [facility] BGas Source Venous [facility] Blood Venous Draw / Unknown 09/28/2022 3:39 PM EDT 09/28/2022 3:50 PM EDT Narrative Resulting Agency Comment Spec In Lab Ciro Lovell MD CHEMISTRY ORDERABLES [facility] [place] [address] * EKG 12 Lead (09/28/2022 1:58 PM EDT) Ventricular rate 57 BPM MUSE SYSTEM Atrial Rate 57 BPM MUSE SYSTEM P-R Interval 180 ms MUSE SYSTEM QRS Duration 86 ms MUSE SYSTEM Q-T Interval 414 ms MUSE SYSTEM QTC Calculated (Bezet) 402 ms MUSE SYSTEM Calculated P [place] 40 degrees MUSE SYSTEM Calculated R [place] 67 degrees MUSE SYSTEM Calculated T [place] -56 degrees MUSE SYSTEM INTERPRETATION Sinus bradycardia with Premature supraventricular complexes Possible Lateral infarct , age undetermined Marked ST abnormality, possible inferior subendocardial injury Abnormal ECG When compared with ECG of 28-SEP-2022 03:11, Premature supraventricular complexes are now Present T wave inversion now evident in Inferior leads Nonspecific T wave abnormality now evident in Anterior leads QT has shortened Confirmed by MD [place], Gus ([id number]) on 09/28/2022 3:16:41 PM MUSE SYSTEM 09/28/2022 1:58 PM EDT 09/28/2022 3:16 PM EDT Susannah Gómez MD ECG ORDERABLES MUSE SYSTEM * CT Angiogram Coronary Arteries (09/28/2022 8:37 AM EDT) Anatomical Region Laterality Modality Cardiac Computed Tomogra phy Impressions 09/28/2022 4:58 PM EDT 1. ??Coronary calcium score of 182 . ??98%-ile rank based on age, race/ethnicity, and gender. 2. ??CAD-RADS 2. ??Mild mid-LAD stenosis (25-49%) secondary to calcific plaque. Calcium blooming may overestimate degree of stenosis. ??Otherwise, minimal diffuse atherosclerotic changes. 3. ??No evidence of acute aortopathy. 4. ??No acute pulmonary findings. Thank you for letting us participate in the care of this patient. ??If you are a health care provider and have any questions regarding this report, please contact the number below. ??For patients who have questions please contact the health care companion that requested 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 ? Electronically signed by: Jose Gallegos MD, [facility] ([phone]), at 09/28/2022 4:58 PM Narrative 09/28/2022 4:58 PM EDT EXAMINATION: CTA Coronary Arteries CLINICAL HISTORY: Chest pain/anginal equiv, ECGs or troponins abnormal COMPARISON: CT Chest dated 07/29/2022 TECHNIQUE: 3 mm thick axial contiguous sections through the heart were obtained via ECG-gated axial mode acquisition without intravenous contrast. After time bolus, 0.6 mm thick axial contiguous sections were obtained through the heart via ECG-gated helical acquisition during intravenous administration of 117 cc Omnipaque 350. Post-processing was performed on an independent computer workstation including curved multiplanar reformats, coronary calcium scoring, and 3D reconstructions. FINDINGS: Artifacts: No significant artifacts. CORONARY CALCIUM SCORE: Left Main: ??Agatston score: 15; Left Anterior Descending: ??Agatston score: 98; Left Circumflex: ??Agatston score: 69; Right Coronary: ??Agatston score: 0; TOTAL: ??Agatston score: 182; Volume score: 166; Mass: 41.06 g Percentile rank, based on age, race/ethnicity, and gender:98%-ile. Reference: Johanna RL, Silva H, Ashish R, et al. ??Distribution of coronary artery calcium by race, gender, and age: results from the Multi-Ethnic Study of Atherosclerosis (DELONG). Circulation. 2006;113(1):30-37. CORONARY ARTERIES: Left Main: The left main arises from the left coronary cusp. It bifurcates into the left anterior descending and circumflex arteries. Minimal (punctate) calcific changes of the LM ostium; otherwise, no identifiable plaque or stenosis. Left Anterior Descending: The left anterior descending courses anteriorly to the apex. It gives off 2 patent diagonal branches. There is mild (25-49% luminal diameter narrowing) stenosis of the mid-LAD secondary to calcific plaque. ??There are minimal luminal irregularities in the diagonal branches. Left Circumflex: Nondominant. The left circumflex courses in the AV groove and gives off one patent obtuse marginal branch. There is minimal (punctate) calcific changes of the ostium of the LCx. ??.There is minimal (1-24% luminal diameter) narrowing of the mid-LCx secondary to calcific plaque. Right Coronary: Dominant vessel. The right coronary arises from the right coronary cusp. It terminates as the posterior descending and right posterior lateral branch. There are minimal diffuse luminal irregularities secondary to atherosclerotic changes. OTHER FINDINGS: Cardiac Chambers: ??The left ventricle is normal in size. No evidence of previous infarct. Interventricular septum appears intact. Biatrial enlargement. The left atrial appendage is without thrombus. 4 pulmonary veins are seen entering the left atrium. Interatrial septum appears intact. Pericardium. ??Normal. ??No pericardial effusion. Aorta: The visualized thoracic aorta is normal in course, caliber, and contour. No acute aortopathy visualized. Pulmonary Arteries: ??Visualized portions of the proximal pulmonary arteries are without thrombus, although timing not optimized for pulmonary embolism assessment. Pulmonary Parenchyma: ??No masses. ??No consolidation. Airways: ??No significant findings. Pleura: ??No significant findings. Upper Abdomen: ??No significant findings. Skeletal Structures: ??No significant findings. ??Diffuse degenerative changes. Procedure Note Jose Gallegos MD - 09/28/2022 EXAMINATION: CTA Coronary Arteries CLINICAL HISTORY: Chest pain/anginal equiv, ECGs or troponins abnormal COMPARISON: CT Chest dated 07/29/2022 TECHNIQUE: 3 mm thick axial contiguous sections through the heart wereobtained via ECG-gated axial mode acquisition without intravenous contrast. Aftertime bolus, 0.6 mm thick axial contiguous sections were obtained through theheart via ECG-gated helical acquisition during intravenous administration of 117cc Omnipaque 350. Post-processing was performed on an independent computer workstation including curved multiplanar reformats, coronary calciumscoring, and 3D reconstructions. FINDINGS: Artifacts: No significant artifacts. CORONARY CALCIUM SCORE: Left Main: Agatston score: 15; Left Anterior Descending: Agatston score: 98; Left Circumflex: Agatston score: 69; Right Coronary: Agatston score: 0; TOTAL: Agatston score: 182; Volume score: 166; Mass: 41.06 g Percentile rank, based on age, race/ethnicity, and gender:98%-ile. Reference: Johanna RL, Ricardo H, Ashish R, et al. ??Distribution ofcoronary artery calcium by race, gender, and age: results from the Multi-EthnicStudy of Atherosclerosis (DELONG). Circulation. 2006;113(1):30-37. CORONARY ARTERIES: Left Main: The left main arises from the left coronary cusp. It bifurcatesinto the left anterior descending and circumflex arteries. Minimal (punctate) calcific changes of the LM ostium; otherwise, no identifiable plaque or stenosis. Left Anterior Descending: The left anterior descending courses anteriorlyto the apex. It gives off 2 patent diagonal branches. There is mild (25-49%luminal diameter narrowing) stenosis of the mid-LAD secondary to calcific plaque.There are minimal luminal irregularities in the diagonal branches. Left Circumflex: Nondominant. The left circumflex courses in the AV grooveand gives off one patent obtuse marginal branch. There is minimal (punctate) calcific changes of the ostium of the LCx. .There is minimal (1-24%luminal diameter) narrowing of the mid-LCx secondary to calcific plaque. Right Coronary: Dominant vessel. The right coronary arises from theright coronary cusp. It terminates as the posterior descending and rightposterior lateral branch. There are minimal diffuse luminal irregularities secondaryto atherosclerotic changes. OTHER FINDINGS: Cardiac Chambers: The left ventricle is normal in size. No evidence ofprevious infarct. Interventricular septum appears intact. Biatrial enlargement. Theleft atrial appendage is without thrombus. 4 pulmonary veins are seen enteringthe left atrium. Interatrial septum appears intact. Pericardium. Normal. No pericardial effusion. Aorta: The visualized thoracic aorta is normal in course, caliber, andcontour. No acute aortopathy visualized. Pulmonary Arteries: Visualized portions of the proximal pulmonaryarteries are without thrombus, although timing not optimized for pulmonary embolism assessment. Pulmonary Parenchyma: No masses. No consolidation. Airways: No significant findings. Pleura: No significant findings. Upper Abdomen: No significant findings. Skeletal Structures: No significant findings. Diffuse degenerativechanges. IMPRESSION 1. Coronary calcium score of 182 . 98%-ile rank based on age,race/ethnicity, and gender. 2. CAD-RADS 2. Mild mid-LAD stenosis (25-49%) secondary to calcificplaque. Calcium blooming may overestimate degree of stenosis. Otherwise,minimal diffuse atherosclerotic changes. 3. No evidence of acute aortopathy. 4. No acute pulmonary findings. Thank you for letting us participate in the care of this patient. If youare a health care provider and have any questions regarding this report,please contact the number below. For patients who have questions please contactthe health care companion that requested 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 Electronically signed by: Jose Gallegos MD, [facility]([phone]), at 09/28/2022 4:58 PM Susannah Gómez MD IMG CT ORDERABLES * (ABNORMAL) Troponin (09/28/2022 6:56 AM EDT) Troponin-T HS 21(H) <=14 ng/L [facility] Comment: This patient's troponin [...] troponin value can be found in the [facility] Test Catalog Troponin - [facility] Test Catalog Reference: Fourth [place] Definition of Myocardial Infarction. Journal of the [employer] [place] [employer] 2018;72:2485-9734 Blood 09/28/2022 6:56 AM EDT 09/28/2022 7:01 AM EDT Narrative Resulting Agency Comment Spec In Lab Susannah Gómez MD CHEMISTRY ORDERABLES [facility] [place] [address] * Differential, Automated (09/28/2022 3:49 AM EDT) Neutrophils % 45.9 % [facility] Neutr Abs (ANC) 2.92 1.70 - 6.10 x10(3)/[facility] Lymphocytes % 40.5 % [facility] Lymphocytes Abs 2.6 0.9 - 3.2 x10(3)/[facility] Monocytes % 8.9 % [facility] Monocyte Abs 0.6 0.3 - 0.9 x10(3)/[facility] Eosinophils % 3.3 % [facility] Eosinophils Abs 0.2 0.0 - 0.4 x10(3)/[facility] Basophils % 1.1 % [facility] Basophils Abs 0.1 0.0 - 0.1 x10(3)/[facility] Immature Gran % 0.30 % [facility] Comment: Immature granulocytes(IG's)percentage and absolute count will include metamyelocytes, myelocytes, and promyelocytes. Blood smears from CBCs yielding IG's will be scanned manually for concordance. If this scan disagrees with the automated IG or if promyelocytes are noted, a manual differential will be performed. Shonda Gran Abs 0.02 0.00 - 0.04 x10(3)/[facility] Blood 09/28/2022 3:49 AM EDT 09/28/2022 4:11 AM EDT Narrative Resulting Agency Comment Spec In Lab Vimal Holman MD HEMATOLOGY ORDERABLE S [facility] [place] [address] * (ABNORMAL) Hemogram (09/28/2022 3:49 AM EDT) [facility] WBC 6.4 4.0 - 9.5 x10(3)/[facility] RBC 4.37 4.00 - 5.21 x10(6)/[facility] Hemoglobin 13.7 11.7 - 15.5 g/dL [facility] Hematocrit 41.6 35.7 - 45.8 % [facility] MCV 95.2(H) 82.6 - 94.4 [facility] MCH 31.4 27.1 - 32.0 pg [facility] MCHC 32.9 31.7 - 35.0 g/dL [facility] Platelets 224 145 - 357 x10(3)/[facility] RDWSD 43.1 37.0 - 46.0 [facility] RDWCV 12.3 11.5 - 14.1 % [facility] MPV 11.3 7.6 - 12.9 [facility] nRBC % Auto 0.0 % [facility] nRBC Abs Auto 0.000 0.000 - 0.000 x10(3)/[facility] Blood 09/28/2022 3:49 AM EDT 09/28/2022 4:11 AM EDT Narrative Resulting Agency Comment Spec In Lab Vimal Holman MD HEMATOLOGY ORDERABLE S [facility] [place] [address] * (ABNORMAL) Troponin (09/28/2022 3:49 AM EDT) Pathologist [facility] Troponin-T HS 25(H) <=14 ng/L [facility] Comment: This patient's troponin [...] troponin value can be found in the [facility] Test Catalog Troponin - [facility] Test Catalog Reference: Fourth [place] Definition of Myocardial Infarction. Journal of the [employer]iology 2018;72:5332-4784 Blood 09/28/2022 3:49 AM EDT 09/28/2022 4:11 AM EDT Narrative Resulting Agency Comment Spec In Lab Susannah Gómez MD CHEMISTRY ORDERABLES [facility] [place] [address] * (ABNORMAL) Basic Metabolic Panel (non-fasting) (09/28/2022 3:49 AM EDT) Glucose Lvl 97 65 - 199 mg/dL [facility] Comment:Diabetes: >=200 mg/d L plus symptoms BUN 26(H) 8 - 18 mg/dL [facility] Creatinine 1.01 0.70 - 1.20 mg/dL [facility] Sodium 137 135 - 145 mmol/L [facility] Potassium 4.4 3.5 - 5.0 mmol/L [facility] Comment: Please note: ??Patients with WBC >100,000 may have falsely elevated Potassium levels. ??For accurate Potassium quantification in these patients send serum separator tube (gold top) for subsequent determinations. ??Contact the Clinical Chemistry Laboratory if there are any questions. Chloride 108(H) 98 - 107 mmol/L [facility] CO2 18(L) 22 - 31 mmol/L [facility] Anion Gap 11 5 - 15 mmol/L [facility] Calcium 9.0 8.5 - 10.5 mg/dL [facility] Estimated GFR 67 >=60 mL/min/1. 73 m?? [facility] Comment: This patient's estimated GFR [...] and symptoms in addition to eGFR. Blood 09/28/2022 3:49 AM EDT 09/28/2022 4:11 AM EDT Narrative Resulting Agency Comment Spec In Lab Susannah Gómez MD CHEMISTRY ORDERABLES [facility] [place] [address] * XR Chest One View (09/28/2022 3:37 AM EDT) Anatomical Region Laterality Modality Chest N/A Digital Radiogra phy Impressions 09/28/2022 8:27 AM EDT Mild pulmonary vascular congestion. I have personally reviewed the image(s) and the resident's interpretation and agree with the findings, Elina Valdez MD at 09/28/2022 8:27 AM Thank you for letting us participate in the care of this patient. ??If you are a health care provider and have any questions regarding this report, please contact the number below. ??For patients who have questions please contact the health care companion that requested 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 ? Electronically signed by: Elina Valdez MD, [facility] ??([phone]), at 09/28/2022 8:27 AM Narrative 09/28/2022 8:27 AM EDT EXAMINATION: XR CHEST ONE VIEW CLINICAL HISTORY: chest pain TECHNIQUE: Portable AP view of the chest , one image COMPARISON: CT chest 07/29/2022. Chest radiograph 06/13/2021. FINDINGS: Multiple leads overlie the patient. The cardiac, mediastinal, and hilar contours are normal. Mild pulmonary vascular congestion with cephalization. No focal airspace opacities. No pleural effusion or pneumothorax. No acute osseous findings. Procedure Note Elina Valdez MD - 09/28/2022 EXAMINATION: XR CHEST ONE VIEW CLINICAL HISTORY: chest pain TECHNIQUE: Portable AP view of the chest , one image COMPARISON: CT chest 07/29/2022. Chest radiograph 06/13/2021. FINDINGS: Multiple leads overlie the patient. The cardiac, mediastinal, and hilar contours are normal. Mild pulmonaryvascular congestion with cephalization. No focal airspace opacities. No pleuraleffusion or pneumothorax. No acute osseous findings. IMPRESSION Mild pulmonary vascular congestion. I have personally reviewed the image(s) and the resident's interpretationand agree with the findings, Elina Valdez MD at 09/28/2022 8:27 AM Thank you for letting us participate in the care of this patient. If youare a health care provider and have any questions regarding this report,please contact the number below. For patients who have questions please contactthe health care companion that requested 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 Electronically signed by: Elina Valdez MD, [facility]([phone]), at 09/28/2022 8:27 AM Susannah Gómez MD IMG DX ORDERABLES * EKG 12 Lead (09/28/2022 3:11 AM EDT) Ventricular rate 45 BPM MUSE SYSTEM Atrial Rate 45 BPM MUSE SYSTEM P-R Interval 196 ms MUSE SYSTEM QRS Duration 90 ms MUSE SYSTEM Q-T Interval 554 ms MUSE SYSTEM QTC Calculated (Bezet) 479 ms MUSE SYSTEM Calculated P [place] 33 degrees MUSE SYSTEM Calculated R [place] 28 degrees MUSE SYSTEM Calculated T [place] 58 degrees MUSE SYSTEM INTERPRETATION Sinus bradycardia Nonspecific ST and T wave abnormality Abnormal ECG When compared with ECG of 26-SEP-2022 17:33, QT has lengthened Confirmed by fellow Vaishnavi Pratt ([id number]) on 09/28/2022 9:30:13 AM Confirmed by MD [place], Gus ([id number]) on 09/28/2022 3:06:42 PM MUSE SYSTEM 09/28/2022 3:11 AM EDT 09/28/2022 3:06 PM EDT Susannah Gómez MD ECG ORDERABLES MUSE SYSTEM * ECHO COMPLETE W CONTRAST (09/27/2022 9:42 AM EDT) EF 60 HEARTLAB SYSTEM Anatomical Region Laterality Modality Cardiac Other 09/27/2022 9:04 AM EDT Narrative 09/27/2022 12:04 PM EDT ? Echocardiogram Report Name: LOIDA MADRIGAL ? Study Date: 09/27/2022 09:04 AMBP: 92/56 mmHg ? Patient Location: : 1970 ? Height: 163 cm ? Account: [id number] Age: 52 yrs ? Weight: 102 kg Gender: Female ?BSA: 2.1 m2 Ordering Physician: SUSANNAH GÓMEZ Referring Physician: SUSANNAH GÓMEZ Performed By: HAIM Arnold Reason For Study: NSTEMI Exam Location: [facility]. Interpretation Summary - Left ventricular systolic function [...] on 12/31/21, there is no significant change. Procedure Complete-[id number]. Image enhancement Optison was used for left ventricular opacification. Suboptimal quality. Atrial ectopy occurs frequently during the study. There is sinus bradycardia. Left Ventricle Left ventricle is of normal size. Mildly increased thickness of the basal septum with no obstruction to LV outflow. There is no ventricular septal defect. Left ventricular systolic function is normal. Left ventricular ejection fraction is estimated visually at 60%. There are no segmental wall motion abnormalities. Right Ventricle The right ventricle is of normal size. Right ventricular systolic function is normal. Left Atrium The left atrium is severely dilated. There is no evidence for a patent foramen ovale. Right Atrium The right atrium is moderately dilated. Aortic Valve The aortic valve is tricuspid. There is no aortic stenosis. There is no aortic regurgitation. Mitral Valve The mitral valve is structurally normal. There is no mitral stenosis. There is trace mitral regurgitation. Tricuspid Valve The tricuspid valve is structurally normal. There is no tricuspid stenosis. There is trace tricuspid regurgitation. Pulmonic Valve The pulmonic valve is not well visualized. There is no valvular pulmonic stenosis. There is no pulmonic valve regurgitation. Great Arteries The aortic root is of normal size. No abnormalities are identified. Ascending aorta is normal in size. No abnormalities of the pulmonary artery are identified. Venous Inferior vena cava is dilated. Inferior vena cava collapse less than 50% with respiration. Pericardium/Pleural There is no pericardial effusion. A pericardial fat pad is present. Hemodynamics Pulmonary artery hypertension could not be assessed due to inadequate tricuspid regurgitation jet. The estimated right atrial pressure is 15mmHg. Left ventricular filling pressure is indeterminate. ? 2D Measurements ? Volumes ?IVSd: 1.3 cm ? LAV(MOD-bp) Indexed: ?LVIDd: 4.6 cm ?LVIDs: 2.9 cm ?41.5 ml/m2 ?LVPWd: 1.1 cm ?RA A4Cs_phl: 29.1 cm2 ? SV(LVOT): 43.2 ml ?LV mass(C)d: 198.3 grams ?LV mass(C)dI: 96.3 grams/m2 ?SI(LVOT): 21.0 ml/m2 ?Ao root diam: 2.6 cm ?Ao root diam index: 1.3 ?asc Aorta Diam: 3.1 cm ?LVOT diam: 1.6 cm Doppler LV V1 VTI: 21.6 cm MV E max ilir: 53.7 cm/sec MV A max ilir: 28.8 cm/sec MV E/A: 1.9 MV dec time: 0.13 sec Lat Peak E' Ilir: 3.7 cm/sec E/ e' (lat): 14.6 Med Peak E' Ilir: 4.1 cm/sec E/e' (med): 13.0 E/e' Average: 13.8 I ?WMSI = 1.00 ? % Normal = 100 ?Segments ??Size X - Cannot ?2 - ?4 - ?1-2 ? small Interpret ?1 - Normal ?? Hypokinetic 3 - Akinetic Dyskinetic ?? 3-5 ? moderate 5 - ? 6-14 ?large Aneurysmal ?15-16 ?? diffuse Procedure Note Susannah Gómez MD - 09/27/2022 Echocardiogram Report Name: LOIDA MADRIGAL Study Date: 309:04 AMBP: 92/56 mmHg Patient Location: : 1970 Height: 163 cm Account: [id number] Age: 52 yrs Weight: 102 kg Gender: Female BSA: 2.1 m2 Ordering Physician: SUSANNAH GÓMEZ Referring Physician: SUSANNAH GÓMEZ Performed By: HAIM Arnold Reason For Study: NSTEMI Exam Location: [facility]. Interpretation Summary - Left ventricular systolic function is normal. Left ventricular ejectionfraction is estimated visually at 60%. There are no segmental wall motionabnormalities. -The right ventricle is of normal size. Right ventricular systolicfunction is normal. -The left atrium is severely dilated. -There is no valve disease. -There is a large pericardial fat pad without a pericardial effusion. -Compared with the previous echo performed on 12/31/21, there is nosignificant change. Procedure Complete-[id number]. Image enhancement Optison was used for left ventricular opacification. Suboptimal quality. Atrial ectopy occurs frequently duringthe study. There is sinus bradycardia. Left Ventricle Left ventricle is of normal size. Mildly increased thickness of the basalseptum with no obstruction to LV outflow. There is no ventricular septal defect.Left ventricular systolic function is normal. Left ventricular ejectionfraction is estimated visually at 60%. There are no segmental wall motionabnormalities. Right Ventricle The right ventricle is of normal size. Right ventricular systolic functionis normal. Left Atrium The left atrium is severely dilated. There is no evidence for a patentforamen ovale. Right Atrium The right atrium is moderately dilated. Aortic Valve The aortic valve is tricuspid. There is no aortic stenosis. There is noaortic regurgitation. Mitral Valve The mitral valve is structurally normal. There is no mitral stenosis.There is trace mitral regurgitation. Tricuspid Valve The tricuspid valve is structurally normal. There is no tricuspidstenosis. There is trace tricuspid regurgitation. Pulmonic Valve The pulmonic valve is not well visualized. There is no valvular pulmonicstenosis. There is no pulmonic valve regurgitation. Great Arteries The aortic root is of normal size. No abnormalities are identified.Ascending aorta is normal in size. No abnormalities of the pulmonary artery areidentified. Venous Inferior vena cava is dilated. Inferior vena cava collapse less than 50%with respiration. Pericardium/Pleural There is no pericardial effusion. A pericardial fat pad is present. Hemodynamics Pulmonary artery hypertension could not be assessed due to inadequatetricuspid regurgitation jet. The estimated right atrial pressure is 15mmHg. Leftventricular filling pressure is indeterminate. 2D Measurements Volumes IVSd: 1.3 cm LAV(MOD-bp)Indexed: LVIDd: 4.6 cm LVIDs: 2.9 cm 41.5 ml/m2 LVPWd: 1.1 cm RA A4Cs_phl: 29.1cm2 SV(LVOT): 43.2ml LV mass(C)d: 198.3 grams LV mass(C)dI: 96.3 grams/m2 SI(LVOT): 21.0ml/m2 Ao root diam: 2.6 cm Ao root diam index: 1.3 asc Aorta Diam: 3.1 cm LVOT diam: 1.6 cm Doppler LV V1 VTI: 21.6 cm MV E max ilir: 53.7 cm/sec MV A max ilir: 28.8 cm/sec MV E/A: 1.9 MV dec time: 0.13 sec Lat Peak E' Ilir: 3.7 cm/sec E/ e' (lat): 14.6 Med Peak E' Ilir: 4.1 cm/sec E/e' (med): 13.0 E/e' Average: 13.8 I WMSI = 1.00 % Normal = 100 SegmentsSize X - Cannot 2 - 4 - 1-2small Interpret 1 - Normal Hypokinetic 3 - Akinetic Dyskinetic 3-5moderate 5 - 6-14large Aneurysmal 15-16diffuse Susannah Gómez MD ECHO ORDERABLES * Differential, Automated (09/27/2022 3:07 AM EDT) Neutrophils % 49.4 % [facility] Neutr Abs (ANC) 3.02 1.70 - 6.10 x10(3)/[facility] Lymphocytes % 36.4 % [facility] Lymphocytes Abs 2.2 0.9 - 3.2 x10(3)/[facility] Monocytes % 10.3 % [facility] Monocyte Abs 0.6 0.3 - 0.9 x10(3)/[facility] Eosinophils % 3.0 % [facility] Eosinophils Abs 0.2 0.0 - 0.4 x10(3)/[facility] Basophils % 0.7 % [facility] Basophils Abs 0.0 0.0 - 0.1 x10(3)/[facility] Immature Gran % 0.20 % [facility] Comment: Immature granulocytes(IG's)percentage and absolute count will include metamyelocytes, myelocytes, and promyelocytes. Blood smears from CBCs yielding IG's will be scanned manually for concordance. If this scan disagrees with the automated IG or if promyelocytes are noted, a manual differential will be performed. Shonda Gran Abs 0.01 0.00 - 0.04 x10(3)/[facility] Blood 09/27/2022 3:07 AM EDT 09/27/2022 3:18 AM EDT Narrative Resulting Agency Comment Spec In Lab Vimal Holman MD HEMATOLOGY ORDERABLE S [facility] [place] [address] * (ABNORMAL) Hemogram (09/27/2022 3:07 AM EDT) WBC 6.1 4.0 - 9.5 x10(3)/[facility] RBC 4.20 4.00 - 5.21 x10(6)/[facility] Hemoglobin 13.3 11.7 - 15.5 g/dL [facility] Hematocrit 40.9 35.7 - 45.8 % [facility] MCV 97.4(H) 82.6 - 94.4 fL [facility] MCH 31.7 27.1 - 32.0 pg [facility] MCHC 32.5 31.7 - 35.0 g/dL [facility] Platelets 223 145 - 357 x10(3)/[facility] RDWSD 45.0 37.0 - 46.0 [facility] RDWCV 12.7 11.5 - 14.1 % [facility] MPV 10.5 7.6 - 12.9 [facility] nRBC % Auto 0.0 % [facility] nRBC Abs Auto 0.000 0.000 - 0.000 x10(3)/[facility] Blood 09/27/2022 3:07 AM EDT 09/27/2022 3:18 AM EDT Narrative Resulting Agency Comment Spec In Lab Vimal Holman MD HEMATOLOGY ORDERABLE S Performing Organization Address City/[facility]/ZIP Co de Phone Number [facility] [place] [address] * (ABNORMAL) Troponin (09/27/2022 3:07 AM EDT) Troponin-T HS 30(H) <=14 ng/L [facility] Comment: This patient's troponin [...] troponin value can be found in the [facility] Test Catalog Troponin - [facility] Test Catalog Reference: Fourth [place] Definition of Myocardial Infarction. Journal of the [employer] 2018;72:6560-8933 Blood 09/27/2022 3:07 AM EDT 09/27/2022 3:18 AM EDT Narrative Resulting Agency Comment Spec In Lab Susannah Gómez MD CHEMISTRY ORDERABLES Performing Organization Address City/[facility]/ZIP Co de Phone Number [facility] [place] [address] * (ABNORMAL) Basic Metabolic Panel (non-fasting) (09/27/2022 3:07 AM EDT) Glucose Lvl 88 65 - 199 mg/dL [facility] Comment:Diabetes: >=200 mg/d L plus symptoms BUN 31(H) 8 - 18 mg/dL [facility] Creatinine 1.19 0.70 - 1.20 mg/dL [facility] Sodium 138 135 - 145 mmol/L [facility] Potassium 4.3 3.5 - 5.0 mmol/L [facility] Comment: Please note: ??Patients with WBC >100,000 may have falsely elevated Potassium levels. ??For accurate Potassium quantification in these patients send serum separator tube (gold top) for subsequent determinations. ??Contact the Clinical Chemistry Laboratory if there are any questions. Chloride 108(H) 98 - 107 mmol/L [facility] CO2 18(L) 22 - 31 mmol/L [facility] Anion Gap 12 5 - 15 mmol/L [facility] Calcium 8.9 8.5 - 10.5 mg/dL [facility] Estimated GFR 55(L) >=60 mL/min/1. 73 m?? [facility] Comment: This patient's estimated GFR [...] and symptoms in addition to eGFR. Blood 09/27/2022 3:07 AM EDT 09/27/2022 3:18 AM EDT Narrative Resulting Agency Comment Spec In Lab Susannah Gómez MD CHEMISTRY ORDERABLES [facility] [place] [address] * Hemoglobin A1c (09/27/2022 3:07 AM EDT) Hemoglobin A1C 5.6 4.3 - 5.6 % [facility] Comment: Reference Range: 4.3 - [...] Mellitus, Diabetes Care 2013; 36: Suppl. 1, S67-74 Est Avg Gluc 114 mg/dL [facility] Comment: eAG equivalents for HbA1c percentages: HbA1c(%) ?eAG(mg/dL) 6.0 ?126 6.5 ?140 7.0 ?154 7.5 ?169 8.0 ?183 8.5 ?197 9.0 ?212 9.5 ?226 10.0 ? 240 Limitations: The eAG calculation has not been validated on women, individuals below 18 years old and above 70 years old, and individuals with hemoglobinopathies. Additional resources are available on the ADA website. Luis PANIAGUA, Ema J, Charity R, et al. ??Translating the A1C assay into estimated average glucose values. ??Diabetes Care 2008:31(8):2253-8710. Blood 09/27/2022 3:07 AM EDT 09/27/2022 3:18 AM EDT Narrative Resulting Agency Comment Spec In Lab Susannah Gómez MD CHEMISTRY ORDERABLES [facility] [place] [address] * Lipid Panel (Reflex Direct LDL) (09/27/2022 3:07 AM EDT) Chol, Total 228 mg/dL [facility] Comment: Lower Risk: <200 mg/dL Average Risk: 200-239 mg/dL Higher Risk: >ar=604 mg/dL Triglycerides 221 mg/dL [facility] Comment: Average Risk/Lower Risk: <150 mg/dL Borderline High Risk: 150-199 mg/dL High Risk: 200-499 mg/dL Very High Risk: >fy=744 mg/dL HDL 33 mg/dL [facility] Comment: Males: ?? Higher Risk: <40 mg/dL Females: ?? Higher Risk: <50 mg/dL LDL Cholesterol 151 mg/dL [facility] Comment: Lowest Risk: <100 mg/dL Lower Risk: 100-129 mg/dL Borderline High Risk: 130-159 mg/dL High Risk: 160-189 mg/dL Very High Risk: >dh=908 mg/dL Chol/HDL Ratio 6.9 ratio [facility] Lipid Interpretation See Note [facility] Comment: Lipid management should be guided by a patient? s ASCVD risk, goals and preferences. ACC/AHA Guidelines recommend high intensity statin if clinical ASCVD or LDL greater than or equal to 190 mg/dL. http://Ecolibriumurl.com/MUI-XIE-Hvuoxkmqz Adults aged 40-75 with LDL 70-189 mg/dL should have their 10 year ASCVD risk estimated with the ACC/AHA ASCVD risk immigration associate http://tools.acc.org/MKUPM-Kkpp-Mbqfremlw/ Statin should be discussed if risk greater [...] critical component of ASCVD risk reduction. Blood 09/27/2022 3:07 AM EDT 09/27/2022 3:18 AM EDT Narrative Resulting Agency Comment Spec In Lab Susannah Gómez MD CHEMISTRY ORDERABLES [facility] [place] [address] * (ABNORMAL) Troponin (09/26/2022 8:55 PM EDT) Troponin-T HS 35(H) <=14 ng/L [facility] Comment: This patient's troponin [...] troponin value can be found in the [facility] Test Catalog Troponin - [facility] Test Catalog Reference: Fourth [place] Definition of Myocardial Infarction. Journal of the [employer] 2018;72:4940-8637 Blood 09/26/2022 8:55 PM EDT 09/26/2022 8:59 PM EDT Narrative Resulting Agency Comment Spec In Lab Susannah Gómez MD CHEMISTRY ORDERABLES [facility] [place] [address] * Gold Tube HOLD (09/26/2022 5:50 PM EDT) Gold Hold Sample in lab. [facility] Blood Venous Draw / Unknown 09/26/2022 5:50 PM EDT 09/26/2022 6:13 PM EDT Vimal Holman MD CHEMISTRY ORDERABLES Performing Organization Address City/[facility]/ZIP Co de Phone Number [facility] [place] [address] * Differential, Automated (09/26/2022 5:50 PM EDT) Neutrophils % 53.9 % [facility] Neutr Abs (ANC) 2.93 1.70 - 6.10 x10(3)/[facility] Lymphocytes % 34.3 % [facility] Lymphocytes Abs 1.9 0.9 - 3.2 x10(3)/[facility] Monocytes % 8.3 % [facility] Monocyte Abs 0.4 0.3 - 0.9 x10(3)/[facility] Eosinophils % 2.4 % [facility] Eosinophils Abs 0.1 0.0 - 0.4 x10(3)/[facility] Basophils % 0.7 % [facility] Basophils Abs 0.0 0.0 - 0.1 x10(3)/[facility] Immature Gran % 0.40 % [facility] Comment: Immature granulocytes(IG's)percentage and absolute count will include metamyelocytes, myelocytes, and promyelocytes. Blood smears from CBCs yielding IG's will be scanned manually for concordance. If this scan disagrees with the automated IG or if promyelocytes are noted, a manual differential will be performed. Shonda Gran Abs 0.02 0.00 - 0.04 x10(3)/[facility] Blood 09/26/2022 5:50 PM EDT 09/26/2022 6:12 PM EDT Narrative Resulting Agency Comment Spec In Lab Vimal Holman MD HEMATOLOGY ORDERABLE S [facility] [place] [address] * Hemogram (09/26/2022 5:50 PM EDT) WBC 5.4 4.0 - 9.5 x10(3)/[facility] RBC 4.58 4.00 - 5.21 x10(6)/[facility] Hemoglobin 14.5 11.7 - 15.5 g/dL [facility] Hematocrit 42.4 35.7 - 45.8 % [facility] MCV 92.6 82.6 - 94.4 fL [facility] MCH 31.7 27.1 - 32.0 pg [facility] MCHC 34.2 31.7 - 35.0 g/dL [facility] Platelets 182 145 - 357 x10(3)/[facility] RDWSD 43.2 37.0 - 46.0 [facility] RDWCV 12.6 11.5 - 14.1 % [facility] MPV 11.3 7.6 - 12.9 fL [facility] nRBC % Auto 0.0 % [facility] nRBC Abs Auto 0.000 0.000 - 0.000 x10(3)/[facility] Blood 09/26/2022 5:50 PM EDT 09/26/2022 6:12 PM EDT Narrative Resulting Agency Comment Spec In Lab Vimal Holman MD HEMATOLOGY ORDERABLE S [facility] [place] [address] * (ABNORMAL) Basic Metabolic Panel (non-fasting) (09/26/2022 5:50 PM EDT) Glucose Lvl 81 65 - 199 mg/dL [facility] Comment:Diabetes: >=200 mg/d L plus symptoms BUN 28(H) 8 - 18 mg/dL [facility] Creatinine 1.02 0.70 - 1.20 mg/dL [facility] Sodium 140 135 - 145 mmol/L [facility] Potassium 4.2 3.5 - 5.0 mmol/L [facility] Comment: Please note: ??Patients with WBC >100,000 may have falsely elevated Potassium levels. ??For accurate Potassium quantification in these patients send serum separator tube (gold top) for subsequent determinations. ??Contact the Clinical Chemistry Laboratory if there are any questions. Chloride 108(H) 98 - 107 mmol/L [facility] CO2 19(L) 22 - 31 mmol/L [facility] Anion Gap 13 5 - 15 mmol/L [facility] Calcium 9.0 8.5 - 10.5 mg/dL [facility] Estimated GFR 66 >=60 mL/min/1. 73 m?? [facility] Comment: This patient's estimated GFR [...] and symptoms in addition to eGFR. Blood 09/26/2022 5:50 PM EDT 09/26/2022 6:12 PM EDT Narrative Resulting Agency Comment Spec In Lab Susannah Gómez MD CHEMISTRY ORDERABLES Performing Organization Address City/[facility]/ZIP Co de Phone Number [facility] [place] [address] * Magnesium (09/26/2022 5:50 PM EDT) Magnesium 0.89 0.69 - 1.07 mmol/L [facility] Blood 09/26/2022 5:50 PM EDT 09/26/2022 6:12 PM EDT Narrative Resulting Agency Comment Spec In Lab Susannah Gómez MD CHEMISTRY ORDERABLES Performing Organization Address [facility] Co de Phone Number [facility] [place] [address] * Calcium (09/26/2022 5:50 PM EDT) Calcium 9.0 8.5 - 10.5 mg/dL [facility] Blood 09/26/2022 5:50 PM EDT 09/26/2022 6:12 PM EDT Narrative Resulting Agency Comment Spec In Lab Susannah Gómez MD CHEMISTRY ORDERABLES Performing Organization Address [facility] Co de Phone Number [facility] [place] [address] * (ABNORMAL) Prothrombin Time (09/26/2022 5:50 PM EDT) PT 14.3(H) 9.4 - 12.5 sec [facility] INR 1.3 [facility] Comment: [...] be appropriate depending on clinical circumstances. Blood 09/26/2022 5:50 PM EDT 09/26/2022 6:12 PM EDT Narrative Resulting Agency Comment Spec In Lab Susannah Gómez MD HEMATOLOGY ORDERABLE S Performing Organization Address City/[facility]/ZIP Co de Phone Number [facility] [place] [address] * (ABNORMAL) APTT (09/26/2022 5:50 PM EDT) PTT 39(H) 25 - 37 sec [facility] Comment: The PTT is NOT appropriate for heparin monitoring. Use the Anti-Xa level for heparin monitoring (HEP UFH) or LMWH monitoring (HEP LMW). A PTT less than 37 seconds generally indicates adequate hemostasis. Blood 09/26/2022 5:50 PM EDT 09/26/2022 6:12 PM EDT Narrative Resulting Agency Comment Spec In Lab Susannah Gómez MD HEMATOLOGY ORDERABLE S Performing Organization Address [facility]/ZIP Co de Phone Number [facility] [place] [address] * (ABNORMAL) pro-Brain Natriuretic Peptide (09/26/2022 5:50 PM EDT) ProBNP 1,069(H) <=124 pg/mL [facility] Blood 09/26/2022 5:50 PM EDT 09/26/2022 6:12 PM EDT Narrative Resulting Agency Comment Spec In Lab Susannah Gómez MD CHEMISTRY ORDERABLES Performing Organization Address City/[facility]/ZIP Co de Phone Number [facility] [place] [address] * TSH (09/26/2022 5:50 PM EDT) TSH 3.02 0.27 - 4.20 mcIU/mL [facility] Comment: Reference Interval (mcIU/mL): Females: ??First Trimester: 0.23-3.88 ??Second Trimester: 0.22-3.90 ??Third Trimester: 0.44-4.66 Blood 09/26/2022 5:50 PM EDT 09/26/2022 6:12 PM EDT Narrative Resulting Agency Comment Spec In Lab Susannah Gómez MD CHEMISTRY ORDERABLES Performing Organization Address [facility] Co de Phone Number [facility] [place] [address] * EKG 12 Lead (09/26/2022 5:33 PM EDT) Ventricular rate 54 BPM MUSE SYSTEM Atrial Rate 54 BPM MUSE SYSTEM P-R Interval 180 ms MUSE SYSTEM QRS Duration 84 ms MUSE SYSTEM Q-T Interval 438 ms MUSE SYSTEM QTC Calculated (Bezet) 415 ms MUSE SYSTEM Calculated P [place] 20 degrees MUSE SYSTEM Calculated R [place] 21 degrees MUSE SYSTEM Calculated T [place] -28 degrees MUSE SYSTEM INTERPRETATION Sinus bradycardia ST & T wave abnormality, consider inferior ischemia Abnormal ECG When compared with ECG of 30-JUL-2022 09:33, T wave inversion now evident in Inferior leads Nonspecific T wave abnormality, worse in Anterolateral leads QT has shortened Confirmed by MD Hans, Armstrong ([id number]) on 10/02/2022 11:07:34 AM MUSE SYSTEM 09/26/2022 5:33 PM EDT 10/02/2022 11:07 AM EDT Unknown ECG ORDERABLES Performing Organization Address [facility] Co de Phone Number MUSE SYSTEM * CRP, acute inflammation (09/26/2022 5:01 PM EDT) CRP <3.0 <=4.9 mg/L [facility] Blood Venous Draw / Unknown 09/26/2022 5:01 PM EDT 09/26/2022 5:33 PM EDT Narrative Resulting Agency Comment Spec In Lab Paulo Ramachandran Jr., MD CHEMISTRY ORDEsther PONCE Performing Organization Address City/[facility]/ZIP Co de Phone Number [facility] [place] [address] * (ABNORMAL) Troponin (09/26/2022 5:01 PM EDT) Troponin-T HS 29(H) <=14 ng/L [facility] Comment: This patient's troponin [...] troponin value can be found in the [facility] Laboratory Test Catalog Troponin - [facility] Laboratory Test Catalog Reference: Fourth [place]zibah Definition of Myocardial Infarction. Journal of the [employer] 2018;72:4237-9572 Blood 09/26/2022 5:01 PM EDT 09/26/2022 5:12 PM EDT Narrative Resulting Agency Comment Spec In Lab Susannah Gómez MD CHEMISTRY ORDERABLES Performing Organization Address [facility]/ZIP Co de Phone Number [facility] [place] [address] documented in this encounter Visit Diagnoses Diagnosis Non-ST elevation [...] 2.5 mg, Oral, DAILY, First dose on 09/26/22 at 1830, Until Discontinued, Routine Given 09/27/2022 9:00 AM EDT 2.5 mg Given 09/26/2022 6:30 PM EDT 2.5 mg amLODIPine (Norvasc) tablet 5 mg 5 mg, Oral, DAILY, First dose (after last modification) on 09/28/22 at 0900, Until Discontinued, Routine Given 09/28/2022 9:31 AM EDT 5 mg aspirin chewable tablet 81 mg 81 mg, Oral, DAILY, First dose on Wed09/27/22 at 0900, Until Discontinued, Routine Given 09/28/2022 9:31 AM EDT 81 mg Given 09/27/2022 8:47 AM EDT 81 mg atorvastatin (Lipitor) tablet 80 mg 80 mg, Oral, EVERY EVENING, First dose on 09/26/22 at 1745, Until Discontinued, Routine Given 09/27/2022 5:39 PM EDT 80 mg Given 09/26/2022 5:14 PM EDT 80 mg bumetanide (Bumex) tablet 1 mg 1 mg, Oral, DAILY, First dose on 09/28/22 at 1545, Until Discontinued, Routine DULoxetine DR (Cymbalta) capsule 60 mg 60 mg, Oral, DAILY, First dose on 09/26/22 at 1745, Until Discontinued, Routine Given 09/28/2022 9:31 AM EDT 60 mg Given 09/27/2022 8:47 AM EDT 60 mg Given 09/26/2022 5:14 PM EDT 60 mg enoxaparin (Lovenox) (100 mg/1 mL) subcutaneous injection 100 mg 100 mg, Subcutaneous, EVERY 12 HOURS SCHEDULED (2 times per day), First dose on 09/26/22 at 2100, Until Discontinued, Routine Given 09/28/2022 9:31 AM EDT 100 mg Given 09/27/2022 9:09 PM EDT 100 mg Given 09/27/2022 8:47 AM EDT 100 mg gabapentin (Neurontin) capsule 600 mg 600 mg, Oral, NIGHTLY, First dose on 09/26/22 at 2100, Until Discontinued, Routine Given 09/27/2022 9:09 PM EDT 600 mg Given 09/26/2022 8:03 PM EDT 600 mg iohexoL (Omnipaque) (350 mg/mL) solution 0-200 mL 0-200 mL, Intravenous, ONCE PRN, 1 dose, Starting on 09/28/22 at 0849, Until Wed09/28/22 at 0849, Per Protocol, Warning Vesicant/Irritant Medication , Radiology Contrast, Routine Given 09/28/2022 8:49 AM EDT 117 mLs melatonin tablet 6 mg 6 mg, Oral, NIGHTLY, First dose on 09/27/22 at 2230, Until Discontinued, Routine Given 09/27/2022 9:52 PM EDT 6 mg metoprolol succinate XL (Toprol-XL) tablet 25 mg 25 mg, Oral, DAILY, First dose on 09/26/22 at 1845, Until Discontinued, DO NOT CRUSH OR OPEN, Routine Given 09/27/2022 8:46 AM EDT 25 mg Given 09/26/2022 6:50 PM EDT 25 mg nitroGLYcerin (Nitrostat) disintegrating tablet 0.4 mg 0.4 mg, Sublingual, EVERY 5 MIN PRN, Starting on 09/26/22 at 1647, Until 09/28/22 at 1910, Chest pain, SL nitroglycerin may be repeated every 5 minutes as needed up to 3 doses, Routine Given 09/28/2022 1:59 PM EDT 0.4 mg Given 09/28/2022 3:49 AM EDT 0.4 mg Given 09/28/2022 2:43 AM EDT 0.4 mg sodium chloride 0.9 % (flush) (BD PosiFlush Normal Saline 0.9) flush 5 mL 5 mL, Intravenous, 2 TIMES DAILY, First dose on 09/26/22 at 2100, Until Discontinued, Routine Given 09/28/2022 9:31 AM EDT 5 mLs Given 09/27/2022 8:47 AM EDT 5 mLs Given 09/26/2022 8:04 PM EDT 5 mLs sodium chloride 0.9 % (flush) (BD PosiFlush Normal Saline 0.9) flush 5 mL 5 mL, Intravenous, 2 TIMES DAILY, First dose on 09/26/22 at 2100, Until Discontinued, Routine Given 09/28/2022 9:31 AM EDT 5 mLs Given 09/27/2022 9:10 PM EDT 5 mLs Given 09/27/2022 8:47 AM EDT 5 mLs topiramate (Topamax) tablet 100 mg 100 mg, Oral, NIGHTLY, First dose on 09/26/22 at 2100, Until Discontinued, DO NOT SPLIT, CRUSH OR OPEN, Routine Given 09/27/2022 9:09 PM EDT 100 mg Given 09/26/2022 8:02 PM EDT 100 mg documented in this encounter Active and Recently Administered Medications Times are shown in EDT. Scheduled Medication Order 09/26/2022 09/27/2022 09/28/2022 amLODIPine (Norvasc) tablet 2.5 mg (CANCELED) 2.5 mg, Oral, DAILY, First dose on 09/26/22 at 1830, Until Discontinued, Routine 1830 (Given - Provider: Kathleen Brown RN) 0900 (Given - Provider: Asya Michele RN) amLODIPine (Norvasc) tablet 5 mg 5 mg, Oral, DAILY, First dose (after last modification) on 09/28/22 at 0900, Until Discontinued, Routine 0931 (Given - Provider: Antonio Swann RN) aspirin chewable tablet 81 mg 81 mg, Oral, DAILY, First dose on 09/27/22 at 0900, Until Discontinued, Routine 0847 (Given - Provider: Asya Michele RN) 0931 (Given - Provider: Antonio Swann RN) atorvastatin (Lipitor) tablet 80 mg 80 mg, Oral, EVERY EVENING, First dose on 09/26/22 at 1745, Until Discontinued, Routine 1714 (Given - Provider: Mona Ogden RN) 1739 (Given - Provider: Asya Michele RN) 1700 (Due) bumetanide (Bumex) tablet 1 mg 1 mg, Oral, DAILY, First dose on 09/28/22 at 1545, Until Discontinued, Routine 1545 (Not Given - Provider: Antonio Swann RN - Reason: See comment - Comment: patient wanted to take after getting home to avoid frequent stops on the way) DULoxetine DR (Cymbalta) capsule 60 mg 60 mg, Oral, DAILY, First dose on 09/26/22 at 1745, Until Discontinued, Routine 1713 (Given - Provider: Mona Ogden RN) 0847 (Given - Provider: Asya Michele RN) 0931 (Given - Provider: Antonio Swann, ERWIN) enoxaparin (Lovenox) (100 mg/1 mL) subcutaneous injection 100 mg 100 mg, Subcutaneous, EVERY 12 HOURS SCHEDULED (2 times per day), First dose on 09/26/22 at 2100, Until Discontinued, Routine 2002 (Given - Provider: Kathleen Brown RN) 0847 (Given - Provider: Asya Michele RN)2108 (Given - Provider: Samantha Patino RN) 0931 (Given - Provider: Antonio Swann RN) gabapentin (Neurontin) capsule 600 mg 600 mg, Oral, NIGHTLY, First dose on 09/26/22 at 2100, Until Discontinued, Routine 2002 (Given - Provider: Kathleen Brown RN) 2108 (Given - Provider: Samantha Patino RN) melatonin tablet 6 mg 6 mg, Oral, NIGHTLY, First dose on Wed09/27/22 at 2230, Until Discontinued, Routine 2151 (Given - Provider: Samantha Patino RN) metoprolol succinate XL (Toprol-XL) tablet 25 mg (CANCELED) 25 mg, Oral, DAILY, First dose on 09/26/22 at 1845, Until Discontinued, DO NOT CRUSH OR OPEN, Routine 185 (Given - Provider: Mona Ogden RN) 0846 (Given - Provider: Asya Michele RN) sodium chloride 0.9 % (flush) (BD PosiFlush Normal Saline 0.9) flush 5 mL 5 mL, Intravenous, 2 TIMES DAILY, First dose on 09/26/22 at 2100, Until Discontinued, Routine 2003 (Given - Provider: Kahtleen Brown, ERWIN) 0847 (Given - Provider: Asya Michele, ERWIN)2099 (Not Given - Provider: Samantha Patino, ERWIN - Reason: See comment - Comment: duplicate) 0931 (Given - Provider: Antonio Swann, RN) sodium chloride 0.9 % (flush) (BD PosiFlush Normal Saline 0.9) flush 5 mL 5 mL, Intravenous, 2 TIMES DAILY, First dose on 09/26/22 at 2100, Until Discontinued, Routine 2002 (Given - Provider: Kathleen Brown RN) 08 (Given - Provider: Asya Michele RN)2109 (Given - Provider: Samantha Patino, ERWIN) 0931 (Given - Provider: Antonio Swann, ERWIN) topiramate (Topamax) tablet 100 mg 100 mg, Oral, NIGHTLY, First dose on 09/26/22 at 2100, Until Discontinued, DO NOT SPLIT, CRUSH OR OPEN, Routine 2001 (Given - Provider: Kathleen Brown RN) 2108 (Given - Provider: Samantha Patino, ERWIN) PRN Medication Order 09/26/2022 09/27/2022 09/28/2022 iohexoL (Omnipaque) (350 mg/mL) solution 0-200 mL (COMPLETED) 0-200 mL, Intravenous, ONCE PRN, 1 dose, Starting on Wed09/28/22 at 0849, Until Wed09/28/22 at 0849, Per Protocol, Warning Vesicant/Irritant Medication , Radiology Contrast, Routine 0849 (Given - Provider: Leah Buckley - Comment: tlc wnl after-redressing IV) lidocaine (Xylocaine) 1% (10 mg/mL) injection 3 mg 3 mg (0.3 mL), Subcutaneous, ONCE PRN, 1 dose, Starting on 09/26/22 at 1647, Until 09/28/22 at 1910, for discomfort with PIV insertion, Routine nitroGLYcerin (Nitrostat) disintegrating tablet 0.4 mg 0.4 mg, Sublingual, EVERY 5 MIN PRN, Starting on 09/26/22 at 1647, Until Wed09/28/22 at 1910, Chest pain, SL nitroglycerin may be repeated every 5 minutes as needed up to 3 doses, Routine 1731 (Given - Provider: Mona Ogden, ERWIN) 1000 (Given - Provider: Asya Michele, ERWIN) 0243 (Given - Provider: Samantha Patino, ERWIN)0349 (Given - Provider: Samantha Patino, ERWIN)1359 (Given - Provider: Antonio Swann RN) sodium chloride 0.9 % (flush) (BD PosiFlush Normal Saline 0.9) flush 5-20 mL 5-20 mL, Intravenous, EVERY 1 MIN PRN, Starting on 09/26/22 at 1647, Until Wed09/28/22 at 1910, flush, Flush pertains to all indwelling lines. Flush per protocol found in the job aid using the link provided on this medication record., Routine sodium chloride 0.9 % (flush) (BD PosiFlush Normal Saline 0.9) flush 5-20 mL 5-20 mL, Intravenous, EVERY 1 MIN PRN, Starting on 09/26/22 at 1647, Until 09/28/22 at 1910, flush, Flush pertains to all indwelling lines. Flush per protocol found in the job aid using the link provided on this medication record., Routine documented in this encounter Care Teams Compounding Technician Relationship Specialty Start Date End Date Polo Pearce PA [address] [place] [address] PCP - General Internal Medicine 06/09/21 documented as of this encounter
--- OUTSIDE RECORDS SUMMARY | 2023-09-20 14:37 | XMS_ITS | Encounter Summary ---
Author Organization [facility] Address [facility] [place] [address] Care Team Providers Care Coal Unloader Name Role Phone Polo Pearce Primary Care Provider [phone] Encounter Details Date Type Department Care Team (Late st Contact Info) Description 03/17/2022 Telephone Cardiology at [address] [place] [address] Jaspreet Kinsey MD [facility] [place] [address] Social History Tobacco Use Types Packs/Day Years [...] Telephone Encounter - Trey Tsai RN - 03/17/2022 10:49 AM EST Called and clarified with patient that she was to stop the lasix and start the Bumex- per Dr. Kinsey. * Telephone Encounter - Aide Glass - 03/17/2022 10:35 AM EST Patient was in yesterday for an appointment. She was ordered a new fluid pill. She would like to know if she is still to take the fluid pills she was taking or just the new one. Please call her @ [phone]. documented in this encounter Plan of Treatment Upcoming Encounters Date Type Department Care Team (Late st Contact Info) Description 10/08/2023 8:30 AM EDT Tech Visit [place] [phone] Jose Cook 10/08/2023 9:30 AM EDT Office Visit [place] [phone] MD [facility] [place] [address] 10/21/2023 10:30 AM EDT Appointment [place] [phone] Mary Reyes [facility] [place] [address] 10/21/2023 11:30 AM EDT Appointment [place] [phone] Mary Reyes [facility] [place] [address] 10/21/2023 12:30 PM EDT Appointment [place] [phone] Mary Reyes [facility] [place] [address] 10/21/2023 1:30 PM EDT Appointment [place] [address] Mary Reyes [employer]ATIVE CHAIRMAN [facility] [place] [address] 10/21/2023 2:30 PM EDT Appointment [place] [address] Mary Reyes APRN [facility] [place] [address] 10/26/2023 4:00 PM EDT Office Visit Cardiology at [address] [phone] Jaspreet Kinsey MD [facility] [place] [address] 10/28/2023 9:00 AM EDT Office [place] [address] 10/29/2023 10:00 AM EDT Clinical Support [place] [address] 10/29/2023 10:15 AM EDT Procedure [place] [address] 11/01/2023 5:00 PM EDT Office Visit [place] [address] Selene Browning, PhD [facility] [place] [place] [address] 11/22/2023 4:40 PM EDT Office Visit Cardiology at [address] [phone] Porsha Mcdaniels MD [facility] [place] [place] [address] 12/13/2023 10:00 AM EDT Clinical Support [place] [address] Lucero Romero, RD [facility] [place] [address] documented as of this encounter Visit Diagnoses Not on filedocumented in this encounter Care Teams Coal Unloader Relationship Specialty Start Date End Date Polo Pearce PA [address] [place] [address] PCP - General Internal Medicine 06/09/21 documented as of this encounter
--- OUTSIDE RECORDS SUMMARY | 2023-09-20 14:37 | XMS_ITS | Encounter Summary ---
[place] [address] Care Team Providers Care Loan Servicing Specialist Name Role Phone Polo Pearce Primary Care Provider [phone] Reason for Visit * Auth/Cert (Routine) Specialty Diagnoses / Procedures Referred By Jayant harris Referred To Contact Diagnoses NSTEMI (non-ST elevated myocardial infarction) NSTEMI Procedures EMERGENCY Willy Olivera MD [facility] [place] [address] [facility] Referral ID Status Reason Start Date Expiration Date Visits Re quested Visits Authorized [id number] 1 1 Encounter Details Date Type Department Care Team (Latest Contact Info) Description 09/27/2022 6:50 AM EDT - 09/27/2022 11:59 PM EDT Hospital Encounter [place] [address] Discharge Disposition: Home Social History Tobacco Use [...] as needed. fluticasone propionate (FLONASE) 50 mcg/actuation [place], Suspension 1 spray by Each Nare route [...] MOUTH TWO TIMES A DAY 07/28/2022 02/11/2023 lisinopriL (Zestril) 5 mg tablet 07/29/2022 09/28/2022 bumetanide (Bumex) 1 mg TabletIndications:Ch ronic heart failure with preserved ejection fraction Take 1 tablet by mouth daily. 90 tablet 1 04/16/2022 10/08/2022 omeprazole (PriLOSEC) 20 mg Capsule, Delayed Release(E.C.) Take 20 mg by mouth daily. Infrequent use 01/27/2022 08/25/2023 spironolactone (Aldactone) 25 mg Tablet Take 25 mg by mouth daily. 01/13/2022 09/28/2022 prochlorperazine (Compazine) 5 mg tablet Take 5 mg by mouth every 6 hours as needed for Nausea. 05/10/2023 erenumab-aooe (Aimovig Autoinjector) 70 mg/mL Auto-Injector Inject subcutaneously every 30 days. 08/13/2020 04/22/2023 metoprolol succinate XL (Toprol-XL) 25 mg Tablet Sustained Release 24 hr Take 1 tablet by mouth daily. 30 tablet 2 06/14/2021 09/28/2022 nitroGLYcerin (Nitrostat) 0.4 mg Tablet, Sublingual Place 1 tablet under the tongue every 5 minutes as needed for Chest pain. 30 tablet 1 06/14/2021 11/17/2022 atorvastatin (Lipitor) 80 mg Tablet Take 1 tablet by mouth every evening. 90 tablet 3 06/09/2021 09/28/2022 traZODone (Desyrel) 50 mg Tablet TAKE 1 TO 2 TABLETS BY MOUTH AT BEDTIME 07/05/2020 11/17/2022 diclofenac (VOLTAREN) 1 % Gel APPLY TO SINGLE KNEE ANKLE OR FOOT SOLES TOES TOP OF FOOT ONCE DAILY 06/21/2020 11/17/2022 documented as of this encounter Plan of Treatment Upcoming Encounters Date Type Department Care Team (Late st Contact Info) Description 10/08/2023 8:30 AM EDT Tech [place] [phone] Jose Cook 10/08/2023 9:30 AM EDT Office [place] [phone] MD [facility] [place] [address] 10/21/2023 10:30 AM EDT Appointment [place] [phone] Mary Reyes APRN [facility] [place] [address] 10/21/2023 11:30 AM EDT Appointment Nuclear Medicine at [place] [phone] Mary Reyes, [facility] [place] [address] 10/21/2023 12:30 PM EDT Appointment Nuclear Medicine at [place] [phone] Mary Reyes [facility] [place] [address] 10/21/2023 1:30 PM EDT Appointment [place] [phone] Mary Reyes, [facility] [place] [address] 10/21/2023 2:30 PM EDT Appointment [place] [phone] Mary Reyes, [facility] [place] [address] 10/26/2023 4:00 PM EDT Office Visit Cardiology at [address] [phone] Jaspreet Kinsey MD [facility] [place] [address] 10/28/2023 9:00 AM EDT Office [place] [address] 10/29/2023 10:00 AM EDT Clinical [place] [address] 10/29/2023 10:15 AM EDT Procedure [place] [address] 11/01/2023 5:00 PM EDT Office [place] [phone] Selene Browning, PhD [facility] [place] [address] 11/22/2023 4:40 PM EDT Office Visit Cardiology at [address] [phone] Porsha Mcdaniels MD [facility] [place] [address] 12/13/2023 10:00 AM EDT Clinical [place] [phone] Lucero Romero, ALVA [facility] [place] [address] documented as of this encounter Procedures Procedure Name Priority Date/Time Associated Diagnosis Comments ECHO COMPLETE W CONTRAST Routine 09/27/2022 9:42 AM EDT Non-ST elevation myocardial infarction (NSTEMI) documented in this encounter Visit Diagnoses Not on filedocumented in this encounter Administered Medications Inactive Administered Medications - up to 3 most recent administrations Medication Order MAR Action Action Date Dose Rate Site perflutren protein-A microsphers (Optison) (0.22 mg/mL) injection 0.5 mL 0.5 mL, Intravenous, ONCE PRN, 1 dose, Starting on 09/27/22 at 0943, Until 09/27/22 at 0900, for enhancement of sub-optimal echo images, Echo Lab (Intra-Procedure), Routine Given 09/27/2022 9:00 AM EDT 0.5 mLs documented in this encounter Care Teams Loan Servicing Specialist Relationship Specialty Start Date End Date Polo Pearce PA [facility] [address] [place] [address] PCP - General Internal Medicine 06/09/21 documented as of this encounter
--- OUTSIDE RECORDS SUMMARY | 2023-09-20 14:37 | XMS_ITS | Encounter Summary ---
Author Organization [facility] [place] [address] Care Team Providers Care Flow Manager Name Role Phone Polo Pearce Primary Care Provider [phone] Encounter Details Date Type Department Care Team (Late st Contact Info) Description 08/31/2022 External [place] [address] Social History Tobacco Use Types Packs/Day Years [...] Tech [place] [phone] Jose Cook 10/08/2023 9:30 AM EDT Office [place] [phone] MD [facility] [place] [address] 10/21/2023 10:30 AM EDT Appointment [place] [address] Mary Reyes [facility] [place] [address] 10/21/2023 11:30 AM EDT Appointment Nuclear Medicine at [address] Mary Reyes [facility] [place] [address] 10/21/2023 12:30 PM EDT Appointment Nuclear Medicine at [address] Mary Reyes [facility] [place] [address] 10/21/2023 1:30 PM EDT Appointment [place] [address] Mary Reyes [facility] [place] [address] 10/21/2023 2:30 PM EDT Appointment [place] [address] Mary Reyes [facility] [place] [address] 10/26/2023 4:00 PM EDT Office Visit Cardiology at [address] [phone] Jaspreet Kinsey MD [facility] [place] [address] 10/28/2023 9:00 AM EDT Office [place] [address] 10/29/2023 10:00 AM EDT Clinical [place] [address] 10/29/2023 10:15 AM EDT Procedure [place] [address] 11/01/2023 5:00 PM EDT Office Visit Gastroenterology at [place] [phone] Selene Browning, PhD [facility] [place] [address] 11/22/2023 4:40 PM EDT Office Visit Cardiology at [address] [phone] Porsha Mcdaniels MD [facility] [place] [address] 12/13/2023 10:00 AM EDT Clinical Support Gastroenterology at [place] [phone] Lucero Romero, RD [facility] [place] [address] documented as of this encounter Procedures Procedure Name Priority Date/Time Associated Diagnosis Comments ECG SCAN Routine 08/31/2022 2:00 PM EDT documented in this encounter Results * Scan Doc: ECG (08/31/2022 2:00 PM EDT) Historical Provider MD LONNIE PRAKASH SCAN EX T ORDR/RSLT documented in this encounter Visit Diagnoses Not on filedocumented in this encounter Care Teams Flow Manager Relationship Specialty Start Date End Date Polo Pearce PA [address] [place] [address] PCP - General Internal Medicine 06/09/21 documented as of this encounter
--- OUTSIDE RECORDS SUMMARY | 2023-09-20 14:37 | XMS_ITS | Encounter Summary ---
Author Organization Formerly [facility] [place] [address] Care Team Providers Care Maintenance Painter Apprentice Name Role Phone Polo Pearce Primary Care Provider [phone] Encounter Details Date Type Department Care Team (Late st Contact Info) Description 06/30/2022 Orders Only Cardiology at [address] [address] Jaspreet Kinsey MD [facility] [place] [address] Chest pain, unspecified type Social History Tobacco [...] AM EDT Tech [place] [phone] Jose Cook 10/08/2023 9:30 AM EDT Office [place] [phone] MD [facility] [place] [address] 10/21/2023 10:30 AM EDT Appointment Nuclear Medicine at [place] [phone] Mary Reyes, [facility] [place] [address] 10/21/2023 11:30 AM EDT Appointment [place] [phone] Mary Reyes [facility] [place] [address] 10/21/2023 12:30 PM EDT Appointment [place] [phone] Mary Reyes [facility] [place] [address] 10/21/2023 1:30 PM EDT Appointment [place] [phone] Mary Reyes [facility] [place] [address] 10/21/2023 2:30 PM EDT Appointment [place] [phone] Mary Reyes [facility] [place] [address] 10/26/2023 4:00 PM EDT Office Visit Cardiology at [address] [place] [phone] Jaspreet Kinsey MD [facility] [place] [address] 10/28/2023 9:00 AM EDT Office [place] [address] 10/29/2023 10:00 AM EDT Clinical [place] [address] 10/29/2023 10:15 AM EDT Procedure [place] [address] 11/01/2023 5:00 PM EDT Office [place] [address] Selene Browning, PhD [facility] [place] [address] 11/22/2023 4:40 PM EDT Office Visit Cardiology at [address] [phone] Porsha Mcdaniels MD [facility] [place] [address] 12/13/2023 10:00 AM EDT Clinical [place] [phone] Lucero Romero, ALVA [facility] [place] [address] documented as of this encounter Visit Diagnoses Diagnosis Chest pain, unspecified type documented in this encounter Care Teams Maintenance Painter Apprentice Relationship Specialty Start Date End Date Polo Pearce PA [address] [place] [address] PCP - General Internal Medicine 06/09/21 documented as of this encounter
--- OUTSIDE RECORDS SUMMARY | 2023-09-20 14:37 | XMS_ITS | Encounter Summary ---
Author Organization Formerly [facility] Address [facility] [place] [address] Care Team Providers Care Official Court Interpreter Name Role Phone Polo Pearce Primary Care Provider [phone] Encounter Details Date Type Department Care Team (Late st Contact Info) Description 03/19/2022 Telephone Cardiology at [address] [place] [address] Jed Tovar MD [facility] [place] [address] Social History Tobacco Use Types Packs/Day Years [...] encounter Miscellaneous Notes * Telephone Encounter - Jed Tovar MD - 03/19/2022 1:26 PM EST I spoke with Ms. Roque over the phone. She has been having constant chest pain that radiates to left arm and jaw for two weeks. Has been admitted to [facility] ED for this with rule out of aorta dissection. However, pain continues. Dr. Kinsey of [facility] cardiology has just begun diuretic therapy, in aneffort to treat the pain. If this does not produce improvement, then he will continue to monitor and treat as appropriate. In the meantime, it is prudent to postpone her SVT ablation scheduled in a few days, until her chest pain is diagnosed and treated. She agrees. Will cancel and follow up per Dr. Kinsey. Jed Tovar MD S Cardiac Electrophysiology 03/19/2022 1:27 PM documented in this encounter Plan of Treatment Upcoming Encounters Date Type Department Care Team (Late st Contact Info) Description 10/08/2023 8:30 AM EDT Tech [place] [phone] Jose Cook 10/08/2023 9:30 AM EDT Office [place] [phone] MD [facility] [place] [address] 10/21/2023 10:30 AM EDT Appointment [place] [phone] Mary Reyes [facility] [place] [address] 10/21/2023 11:30 AM EDT Appointment [place] [phone] Mary Reyes [facility] [place] [address] 10/21/2023 12:30 PM EDT Appointment [place] [address]-1000 Mary Reyes [facility] [place] [address] 10/21/2023 1:30 PM EDT Appointment [place] [address]-1000 Mary Reyes [facility] [place] [address] 10/21/2023 2:30 PM EDT Appointment [place] [address]-1000 Mary Reyes [facility] [place] [address] 10/26/2023 4:00 PM EDT Office Visit Cardiology at [address] [phone] Jaspreet Kinsey MD [facility] [place] [address] 10/28/2023 9:00 AM EDT Office [place] [address] 10/29/2023 10:00 AM EDT Clinical [place] [address] 10/29/2023 10:15 AM EDT Procedure [place] [address] 11/01/2023 5:00 PM EDT Office [place] [address] Selene Browning, PhD [facility] [place] [address] 11/22/2023 4:40 PM EDT Office Visit Cardiology at [address] [address] Porsha Mcdaniels MD [facility] [place] [address] 12/13/2023 10:00 AM EDT Clinical [place] [phone] Lucero Romero, [place] [facility] [place] [address] documented as of this encounter Visit Diagnoses Not on filedocumented in this encounter Care Teams Official Court Interpreter Relationship Specialty Start Date End Date Polo Pearce PA [address] [place] [address] PCP - General Internal Medicine 06/09/21 documented as of this encounter
--- OUTSIDE RECORDS SUMMARY | 2023-09-20 14:37 | XMS_ITS | Encounter Summary ---
[place] [address] Care Team Providers Care Rod Tape Operator Name Role Phone Polo Pearce Primary Care Provider [phone] Reason for Visit * Reason Onset Date Comments Follow-up 03/18/2022 Encounter Details Date Type Department Care Team (Late st Contact Info) Description 03/18/2022 Telephone Cardiology at [address] [phone] Mary Motta, RN Follow-up Social History Tobacco [...] Miscellaneous Notes * Telephone Encounter - Mary Motta, RN - 03/18/2022 11:44 AM ESTSummary: Follow Up Call TC to pt as f/u to pre-procedural call last week (03/11) in prep for upcoming SVT ablation procedure on 03/[address] Tovar Pt saw Dr. Kinsey (primary glaucoma specialist on 03/16) where pt was known to have FVO, at OV Bumex 1 mg QDwas added. Today is second day of being on new diuretic. Reports she is still having pain in stomach & back shoulder area. It is a bit less however it is still present. Will pass this along to Dr. Tovar for further recommendation documented in this encounter Plan of Treatment Upcoming Encounters Date Type Department Care Team (Late st Contact Info) Description 10/08/2023 8:30 AM EDT Tech Visit Vascular Lab at [place] [phone] Jose Cook 10/08/2023 9:30 AM EDT Office [place] [phone] MD [facility] [place] [address] 10/21/2023 10:30 AM EDT Appointment Nuclear Medicine at [place] [phone] Mary Reyes [facility] [place] [address] 10/21/2023 11:30 AM EDT Appointment Nuclear Medicine at [place] [phone] Mary Reyes [facility] [place] [address] 10/21/2023 12:30 PM EDT Appointment [place] [address]-1000 Mary Reyes [facility] [place] [address] 10/21/2023 1:30 PM EDT Appointment [place] [phone] Mary Reyes [facility] [place] [address] 10/21/2023 2:30 PM EDT Appointment Nuclear Medicine at [place] [phone] Mary Reyes APRN [facility] [place] [address] 10/26/2023 4:00 PM EDT Office Visit Cardiology at [address] [phone] Jaspreet Kinsey MD [facility] [place] [address] 10/28/2023 9:00 AM EDT Office [place] [address] 10/29/2023 10:00 AM EDT Clinical Support [place] [address] 10/29/2023 10:15 AM EDT Procedure visit [place] [address] 11/01/2023 5:00 PM EDT Office Visit Gastroenterology at [place] [phone] Selene Browning, PhD [facility] [place] [address] 11/22/2023 4:40 PM EDT Office Visit Cardiology at [address] [phone] Porsha Mcdaniels MD [facility] [place] [address] 12/13/2023 10:00 AM EDT Clinical Support [place] [address] Lucero Romero, [place] [facility] DR [place] [address] documented as of this encounter Visit Diagnoses Not on filedocumented in this encounter Care Teams Rod Tape Operator Relationship Specialty Start Date End Date Polo Pearce PA [facility] [address] [place] [address] PCP - General Internal Medicine 06/09/21 documented as of this encounter
--- OUTSIDE RECORDS SUMMARY | 2023-09-20 14:37 | XMS_ITS | Encounter Summary ---
Author Organization [facility] [place] [address] Care Team Providers Care Spot Worker Name Role Phone Polo Pearce Primary Care Provider [phone] Encounter Details Date Type Department Care Team (Late st Contact Info) Description 07/29/2022 9:50 PM EDT Ancillary Procedure [place] [phone] Marcia Kamara MD [facility] [place] [address] Social History Tobacco Use Types Packs/Day Years [...] AM EDT Tech [place] [address]-1000 Jose Cook 10/08/2023 9:30 AM EDT Office [place] [phone] MD [facility] [place] [address] 10/21/2023 10:30 AM EDT Appointment Nuclear Medicine at [address] Mary Reyes, [facility] [place] [address] 10/21/2023 11:30 AM EDT Appointment Nuclear Medicine at [address] [facility] [place] [address] 10/21/2023 12:30 PM EDT Appointment Nuclear Medicine at [place] [phone] [facility] [place] [address] 10/21/2023 1:30 PM EDT Appointment [place] [phone] [facility] [place] [address] 10/21/2023 2:30 PM EDT Appointment [place] [address]-[address] [facility] [place] [address] 10/26/2023 4:00 PM EDT Office Visit Cardiology at [address] [phone] Jaspreet Kinsey MD [facility] [place] [address] 10/28/2023 9:00 AM EDT Office [place] [address] 10/29/2023 10:00 AM EDT Clinical [place] [address] 10/29/2023 10:15 AM EDT Procedure [place] [address] 11/01/2023 5:00 PM EDT Office Visit Gastroenterology at [place] [phone] Selene Browning, PhD [facility] DR [place] [phone] 11/22/2023 4:40 PM EDT Office Visit Cardiology at [address] [address] Porsha Mcdaniels MD [facility] [place] [address] 12/13/2023 10:00 AM EDT Clinical [place] [phone] Lucero Romero, ALVA [facility] [place] [address] documented as of this encounter Procedures Procedure Name Priority Date/Time Associated Diagnosis Comments FILM LIBRARY STORAGE ONLY CT HEAD AND SPINE Routine 07/29/2022 9:45 PM EDT documented in this encounter Results * Film Library- Storage Only CT Head And Spine (07/29/2022 9:45 PM EDT) Narrative [facility] - 07/29/2022 9:45 PM EDT This exam is auto-finalizing. It's purpose is for storage only. Marcia Kamara MD IMG FILM LIBRARY ORD ERABLES [facility] [place], [place] documented in this encounter Visit Diagnoses Not on filedocumented in this encounter Care Teams Spot Worker Relationship Specialty Start Date End Date Polo Pearce PA [address] [place] [address] PCP - General Internal Medicine 06/09/21 documented as of this encounter
--- OUTSIDE RECORDS SUMMARY | 2023-09-20 14:38 | XMS_ITS | Encounter Summary ---
Author Organization Formerly [facility] Address [facility] [place] [address] Care Team Providers Care Interlocker Maintainer Name Role Phone Polo Pearce Primary Care Provider [phone] Encounter Details Date Type Department Care Team (Late st Contact Info) Description 09/16/2021 Telephone Cardiology at [address] [place] [address] Jaspreet Kinsey [place] [facility] [place] [address] Social History Tobacco Use Types Packs/Day Years [...] Telephone Encounter - Trey Tsai RN - 09/16/2021 2:[address] Kinsey: I would not find it necessary Called patient and let her know. * Telephone Encounter - Aide Glass - 09/16/2021 9:52 AM EDT Patient called because a stress test was ordered for her before she saw Dr Kinsey as a new patient. She has not had a stress test yet and would like to know if she needs one. And if so can she have it here at [facility]. She left her work number for calling her back during the day: [phone]. Or you may leave a message on her cell phone: [phone]. documented in this encounter Plan of Treatment Upcoming Encounters Date Type Department Care Team (Late st Contact Info) Description 10/08/2023 8:30 AM EDT Tech Visit Vascular Lab at [place] [phone] Jose Cook 10/08/2023 9:30 AM EDT Office Visit [place] [phone] MD [facility] [place] [address] 10/21/2023 10:30 AM EDT Appointment Nuclear Medicine at [place] [phone] Mary Reyes [facility] [place] [address] 10/21/2023 11:30 AM EDT Appointment [place] [address] Mary Reyes AIX ADMINISTRATOR [facility] [place] [address] 10/21/2023 12:30 PM EDT Appointment [place] [address] Mary Reyes AIX ADMINISTRATOR [facility] [place] [address] 10/21/2023 1:30 PM EDT Appointment Nuclear Medicine at [place] [phone] Mary Reyes, [facility] [place] [address] 10/21/2023 2:30 PM EDT Appointment [place] [address] Mary Reyes [facility] [place] [address] 10/26/2023 4:00 PM EDT Office Visit Cardiology at [address] [phone] Jaspreet Kinsey MD [facility] [place] [address] 10/28/2023 9:00 AM EDT Office Visit [place] [address] 10/29/2023 10:00 AM EDT Clinical Support [place] [address] 10/29/2023 10:15 AM EDT Procedure visit [place] [address] 11/01/2023 5:00 PM EDT Office Visit [place] [address] Selene Browning, PhD [facility] [place] [address] 11/22/2023 4:40 PM EDT Office Visit Cardiology at [address] [phone] Porsha Mcdaniels MD [facility] [place] [address] 12/13/2023 10:00 AM EDT Clinical Support [place] [phone] [facility] [place] [address] documented as of this encounter Visit Diagnoses Not on filedocumented in this encounter Care Teams Interlocker Maintainer Relationship Specialty Start Date End Date Polo Pearce PA [address] [place] [address] PCP - General Internal Medicine 06/09/21 documented as of this encounter
--- OUTSIDE RECORDS SUMMARY | 2023-09-20 14:38 | XMS_ITS | Encounter Summary ---
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 Sandy Serna MD [facility] [place] [address] [facility] Cardiology [address] [place] [phone] Referral ID Status Reason Start Date Expiration Date V isits Requested Visits Authorized [id number] Closed Consult, Test & Treat 06/14/2021 06/14/2022 1 1 Reason for Visit * Auth/Cert Specialty Diagnoses / Procedures Referred By Jayant harris Referred To Contact Diagnoses NSTEMI (non-ST elevated myocardial infarction) NSTEMI Procedures EMERGENCY IPI Referral ID Status Reason Start Date Expiration Date Visits Re quested Visits Authorized [id number] 1 1 Encounter Details Date Type Department Care Team (Latest Contact Info) Description 06/13/2021 12:35 PM EDT - 06/14/2021 1:22 PM EDT Hospital Encounter Card[facility] [place] [address] Jose Rodrigues MD [facility] [place] [address] Chest pain, unspecified type; Supraventricular tachycardia; Chest pain due to myocardial ischemia, unspecified ischemic chest pain type Discharge Disposition: Home Social History Tobacco [...] Sign Reading Time Taken Comments Blood Pressure 117/64 06/14/2021 9:42 AM EDT Pulse 47 06/14/2021 7:55 AM EDT Temperature 36.4 ??C (97.5 ??F) 06/14/2021 7:55 AM ED T Respiratory Rate 12 06/14/2021 7:55 AM EDT Oxygen Saturation 98% 06/14/2021 7:55 AM EDT Inhaled Oxygen Concentration - - Weight 94.5 kg (208 lb 5.4 oz) 06/13/2021 12:37 PM EDT Height 162.6 cm (5' 4) 06/13/2021 11:00 PM EDT Body Mass Index 35.76 06/13/2021 12:37 PM EDT documented in this encounter Discharge Summaries * Jose Rodrigues MD - 06/14/2021 1:22 PM EDT Cardiology - Discharge Summary Patient Name: Indira Roque Patient Age: 51 y.o. Birthdate: 1970 Admit date: 06/13/2021 Discharge date and time: 06/14/2021 Attending Physician: Tiffanie att. providers found Follow-up Recommendations for Providers: - Initiated on metoprolol XL 25 mg qd for suppression of SVT(AVNRT) - f/u for sx of bradycardia as patient's HR on discharge was in the low 50s but asymptomatic - Ordered for outpatient stress PET - Referral given for EP follow up for catheter ablation of AVNRT. Discharge Diagnoses (Hospital Problems) and Secondary Diagnoses (Chronic Problems): Active Hospital Problems Diagnosis ??? Chest pain Resolved Hospital Problems No resolved problems to display. History of Present Illness: Indira Roque is a 51yo female with a pmhx of diastolic HFpEF, dyslipidemia, MARYLOU (home BiPAP),migraines, depression who is transferred from OSH for suspected type II demand ischemia in the setting of microvascular disease. The patient was sitting after finishing dinner last night when she hadsudden onset of dyspnea and chest pain radiating to her jaw line and shoulder. She also felt like her heart was racing. This lasted approximately 2 hours. She also felt pre-syncopic, chilled and nauseas. After EMS arrived on scene, SVT was captured on EKG with fast rhythm before spontaneously terminating. Her chest pain resolved when her rhythm flipped back into sinus. ?? Her evaluation at the OSH was significant for elevated HS troponin and ST depressions on EKG. Indira was transferred [place] [facility] [place]. ?? Of note, the patient was just released from [facility] [place] chest pain on Wednesday06/09/2021. During that hospitalization she presented for chest pain, borderline troponins and ST changes on EKG. She underwentRHC showing mildly elevated PA pressures and a TTE showing normal EF. She was sent home with ziopatch which she is wearing now. She has been taking all of her medications at home this week. ?? Here on exam the patient denies all symptoms. She has not had any chest pain since the ambulance last night. She is laying in the bed comfortably. ?? Previous Cardiac Testing: TTE on 06/08/2021: 1. Left ventricle is of normal size. Wall thickness is normal. The left ventricular ejection fraction is 61% by Reyes's biplane. Left ventricular systolic function is normal. There are no segmental wall motion abnormalities.Left ventricular filling pressure is normal. 2. The right ventricle is of normal size. Right ventricular systolic function is normal. Pulmonary artery hypertension could not be assessed due to inadequate tricuspid regurgitation jet. 3. The atria are not well seen but the left atrium appears at least moderately dilated. 4. No significant valve disease. ?? Right Heart Cath on 06/09/2021 Hemodynamics: ?Right Heart Pressures ?Resting: ?Syst Diast ?EDP ?a ?v ?m ?RA ?8 ?5 ?4 ?RV 40 ?7 ?PA 38 ?15 ?24 ?PCW ?15 ?13 ?11 ?Hemodynamic Profile: ?Prof ile 1 ?CO ?3.14 ?CI ?1.57 ?TPR ?611 ?PVR ?331 ? Oximetry: ?Location ?%Sat ?Location ?%Sat ?Superior Vena Cava ?55.0 ?Main Pulmonary Artery ?56.0 ?Pulmonary Capillary ?89.0 ?peripheral pulse ox ?97.0 ?Wedge ? Left heart coronary angiogram 08/30/2019 Coronary Angiography: ?Dominance: Right ?Left Main ?The left main was normal, free of disease. ?Left Anterior Descending ?The left anterior descending (LAD) was normal, free of disease. ?Left Circumflex ?The left circumflex (LCX) was normal, free of disease. ?Right Coronary Artery ?The right coronary artery (RCA) was normal, free of disease. ?? Hospital Course: Upon transfer, patient had no further anginal sx or dyspnea and troponins were trended and remainedflat at 0.04 consistent with myocardial injury pattern. [facility] was not pursued as the patient was CP free, has suspected microvascular disease from [facility] 18 months ago and episode was triggered by SVT. She was initiated on metoprolol tartrate 12.5 mg PO bid an uptitrated to 25mg BID. She was continued on home antihypertensive regimen. Patient was monitored for 24 hours without recurrence of SVT or anginal sx and remained in sinus bradycardia. EP was consulted and recommended outpatient follow up forpossible SVT ablation. Pt was discharged with EP referral as well outpatient stress cardiac PET to assess for new ischemia and confirm diagnosis of microvascular disease. She was discharged on metoprolol succinate 25 mg and was stable and ambulatory on discharge. Important Studies and Lab Data: Discharge Labs: Recent Labs 06/14/21 0513 06/13/21 1526 06/09/21 0337 06/08/2144006/07/21 1726 WBC 7.0 6.3 7.9 11.3* 12.0* HGB 15.2 16.1* 15.2 13.9 14.5 PLATELET 252 237 334 312 346 Recent Labs 06/14/21 0506/13/21 15206/09/21 0337 06/08/2144006/07/21 1726 NA 138 137 137 138 137 K 4.2 4.4 4.1 4.1 4.3 CL 106 102 102 103 101 CO2 19* 17* 22 22 24 BUN 21* 20* 23* 21* 18 CREATININE 0.80 0.88 0.86 0.87 1.07 GLUCOSE 98 77 -- -- -- Recent Labs 06/14/2151206/13/21 1526 06/09/21336 CALCIUM 9.0 9.2 9.3 MAGNESIUM 0.90 0.93 -- PHOS -- 3.6 -- Recent Labs 06/14/21 0513 06/13/21 2141 06/13/21 1840 06/13/21 1526 06/08/21 1158 06/08/2144006/07/21 1726 CK -- -- -- -- 30 -- 33 TROPONINT 0.04* 0.04* 0.04* < > -- < > -- < > = values in this interval not displayed. Recent Labs 06/13/21 152 AST 44* ALT 31* ALKPHOS 70 BILITOT 0.4 BILIDIR 0.1 Recent Labs 06/13/211525 INR 1.1 Lab Results Component Value Date CHLPL 164 06/07/2021 HDL 44 06/07/2021 CHOLHDL 3.7 06/07/2021 TRIG 144 06/07/2021 LDLCHOL 91 06/07/2021 LDLDIRECT 165 08/30/2019 Recent Labs 06/07/21 1704 HA1C 5.6 Pending Studies and Lab Data: OP Stress PET Scan Discharge Conditions/Prognosis: Stable Discharge to: Home Discharge Medications: Your Medications New Medications Dose Details metoprolol succinate XL 25 mg Tablet sr Commonly known as: Toprol-XL Take 1 tablet by mouth daily. 25 mg Quantity: 30 tablet Refills: 2 nitroGLYcerin 0.4 mg Subl Commonly known as: Nitrostat Place 1 tablet under the tongue every 5 minutes as needed for Chest pain. 0.4 mg Quantity: 30 tablet Refills: 1 Continued medications, unchanged Dose Details albuteroL 90 mcg/actuation Hfaa Inhale 2 puffs into the lungs every 4 hours as needed. Use with spacer 2 puff Refills: 0 aspirin 81 mg Chew Take 81 mg by mouth daily. 81 mg Quantity: 30 tablet Refills: 3 atorvastatin 80 mg Tab Commonly known as: Lipitor Take 1 tablet by mouth every evening. 80 mg Quantity: 90 tablet Refills: 3 budesonide-formoteroL 160-4.5 mcg/actuation Hfaa Commonly known as: Symbicort Inhale into the lungs. Refills: 0 diclofenac 1 % Gel Commonly known as: Voltaren APPLY TO SINGLE KNEE ANKLE OR FOOT SOLES TOES TOP OF FOOT ONCE DAILY Refills: [address] 60 mg Cpdr Commonly known as: Cymbalta Take 60 mg by mouth daily. 60 mg Refills: 0 Emgality Pen 120 mg/mL Pnij INJECT 2ML ONCE SINGLE DOSE ONCE Generic drug: galcanezumab-gnlm Refills: 0 empagliflozin 10 mg Tab Commonly known as: Jardiance Take 1 tablet by mouth daily. 10 mg Quantity: 90 tablet Refills: 1 fluticasone propionate 50 mcg/actuation Spsn Commonly known as: Flonase 1 spray by Each Nare route daily. 1 spray Refills: 0 furosemide 20 mg Tab Commonly known as: Lasix Take 1 tablet by mouth daily. 20 mg Quantity: 30 tablet Refills: 3 gabapentin 300 mg Cap Commonly known as: Neurontin Take 300 mg by mouth 2 times daily. 300 mg Refills: 0 hydrOXYzine 25 mg Tab Commonly known as: Atarax Take 25 mg by mouth every 6 hours as needed (Headache). 25 mg Refills: 0 lisinopriL 2.5 mg Tab Commonly known as: Zestril Take 1 tablet by mouth daily. 2.5 mg Quantity: 90 tablet Refills: 3 loratadine 10 mg Tab Commonly known as: Claritin Daily. Refills: 0 rOPINIRole 1 mg Tab Commonly known as: Requip TAKE 1 TABLET BY MOUTH 2 3 HOURS BEFORE BEDTIME Refills: 0 SUMAtriptan 100 mg Tab Commonly known as: Imitrex Take 100 mg by mouth as needed for Migraine. Initial dose: 25 mg, 50 mg, or 100 mg (take with fluids). May repeat dose after 2 hours. Max daily dose: 200 mg 100 mg Refills: 0 topiramate 50 mg Tab Commonly known as: TOPAMAX Take 50 mg by mouth 2 times daily. 50 mg in the morning, 100 mg at bedtime 50 mg Refills: 0 traZODone 50 mg Tab Commonly known as: Desyrel TAKE 1 TO 2 TABLETS BY MOUTH AT BEDTIME Refills: 0 zafirlukast 20 mg Tab Commonly known as: Accolate TAKE ONE TABLET BY MOUTH TWICE A DAY Refills: 0 Updated Allergies/ADRs: Allergies Allergen Reactions ??? Clobetasol Rash Future Appointments and Orders Future Appointments and Orders Future Appointments Provider Department Dept Phone 07/23/2021 8:20 AM Jaspreet Kinsey MD Cardiology at [facility] at: [facility] [address] [phone] Future Orders Complete By Expires NM PET CT Cardiac Pharmacologic Stress and Rest [[id number] Custom] 06/14/2021 10/14/2021 Process Instructions: Scheduling Instructions: Questions: Where will study be performed?: [facility] Radiology Reason for exam and clinical history: concern for microvascular disease vs CAD Clinical information / chavis questions for radiologist: Is the patient ?: No Initial treatment or subsequent treatment?: Stat read required?: Does patient require sedation?: GA rationale: Date of injury if applicable: Requested Time: NM PET CT Cardiac Pharmacologic Stress CT Component [[id number] Custom] 06/14/2021 10/14/2021 Process Instructions: Scheduling Instructions: Questions: Where will study be performed?: [facility] Radiology Reason for exam and clinical history: Study performed for attenuation correction of the stress test. Nuclear Pharmacologic Stress Cardiology (PET CT Mobile) [[id number] CPT(R)] 06/14/2021 10/14/2021 Process Instructions: Order [id number], NM myocardial perfussion scan, pharmacologic, should also be placed for the radiologyportion of the test. Scheduling Instructions: Cardiac perfusion (Stress and Lexiscan) - NPO after midnight, medication instructions per referringphysician. Avoidance of all caffeinated and decaffeinated products (No coffee, teas, chocolate, or cola drinks) for at least 12 hours prior to exam. Questions: Where will study be performed?: [facility] Does the patient have a device?: No Pre-op COVID Testing Needed?: Is this test for Pre-Op evaluation?: No Referral to Cardiac Electrophysiology [REF11 Custom] As directed Process Instructions: If no progress note charted, please enter Clinical details in comments. 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 This caused an injury to your heart causing your symptoms, however was treated with a medication called metoprolol, a beta tiffanie than protects your heart from abnormal rhythms. Youwill continue this treatment at home as well. We have given you a referral for electrophysiology so that can discuss a possible ablation treatment to prevent you from having a recurrence of this rhythm. We recommend you follow up with an outpatient stress test that has been ordered for you as well. You will be contacted regarding scheduling. Call your doctor or seek medical attention if you develop the following - chest pain, shortness of breath, feeling dizzy upon standing, passing out, diarrhea, constipation lasting longer than 2 days,fevers (temperature over 100.3), chills, abdominal pain, vomiting, difficulty or discomfort when urinating, bloody or black bowel movements, or any other acute or concerning symptom. Activity level - No restrictions Diet - No change in previous diet Driving - As before hospitalization Shower/Bath - Permitted Wound Care - None Home Oxygen therapy - Not necessary Your Discharge Medication List Your Medications New Medications Dose Details metoprolol succinate XL 25 mg Tablet sr Commonly known as: Toprol-XL Take 1 tablet by mouth daily. 25 mg Quantity: 30 tablet Refills: 2 nitroGLYcerin 0.4 mg Subl Commonly known as: Nitrostat Place 1 tablet under the tongue every 5 minutes as needed for Chest pain. 0.4 mg Quantity: 30 tablet Refills: 1 Continued medications, unchanged Dose Details albuteroL 90 mcg/actuation Hfaa Inhale 2 puffs into the lungs every 4 hours as needed. Use with spacer 2 puff Refills: 0 aspirin 81 mg Chew Take 81 mg by mouth daily. 81 mg Quantity: 30 tablet Refills: 3 atorvastatin 80 mg Tab Commonly known as: Lipitor Take 1 tablet by mouth every evening. 80 mg Quantity: 90 tablet Refills: 3 budesonide-formoteroL 160-4.5 mcg/actuation Hfaa Commonly known as: Symbicort Inhale into the lungs. Refills: 0 diclofenac 1 % Gel Commonly known as: Voltaren APPLY TO SINGLE KNEE ANKLE OR FOOT SOLES TOES TOP OF FOOT ONCE DAILY Refills: [address] 60 mg Cpdr Commonly known as: Cymbalta Take 60 mg by mouth daily. 60 mg Refills: 0 Emgality Pen 120 mg/mL Pnij INJECT 2ML ONCE SINGLE DOSE ONCE Generic drug: galcanezumab-gnlm Refills: 0 empagliflozin 10 mg Tab Commonly known as: Jardiance Take 1 tablet by mouth daily. 10 mg Quantity: 90 tablet Refills: 1 fluticasone propionate 50 mcg/actuation Spsn Commonly known as: Flonase 1 spray by Each Nare route daily. 1 spray Refills: 0 furosemide 20 mg Tab Commonly known as: Lasix Take 1 tablet by mouth daily. 20 mg Quantity: 30 tablet Refills: 3 gabapentin 300 mg Cap Commonly known as: Neurontin Take 300 mg by mouth 2 times daily. 300 mg Refills: 0 hydrOXYzine 25 mg Tab Commonly known as: Atarax Take 25 mg by mouth every 6 hours as needed (Headache). 25 mg Refills: 0 lisinopriL 2.5 mg Tab Commonly known as: Zestril Take 1 tablet by mouth daily. 2.5 mg Quantity: 90 tablet Refills: 3 loratadine 10 mg Tab Commonly known as: Claritin Daily. Refills: 0 rOPINIRole 1 mg Tab Commonly known as: Requip TAKE 1 TABLET BY MOUTH 2 3 HOURS BEFORE BEDTIME Refills: 0 SUMAtriptan 100 mg Tab Commonly known as: Imitrex Take 100 mg by mouth as needed for Migraine. Initial dose: 25 mg, 50 mg, or 100 mg (take with fluids). May repeat dose after 2 hours. Max daily dose: 200 mg 100 mg Refills: 0 topiramate 50 mg Tab Commonly known as: TOPAMAX Take 50 mg by mouth 2 times daily. 50 mg in the morning, 100 mg at bedtime 50 mg Refills: 0 traZODone 50 mg Tab Commonly known as: Desyrel TAKE 1 TO 2 TABLETS BY MOUTH AT BEDTIME Refills: 0 zafirlukast 20 mg Tab Commonly known as: Accolate TAKE ONE TABLET BY MOUTH TWICE A DAY Refills: 0 Follow-up: You will be contacted regarding follow up appointments with your primary care provider, cardiology, and electrophysiology. Please be sure to keep these appointments and if you have not heard from your primary care provider in one week, call them to schedule an appointment. Future Appointments Date Time Provider Department Center 07/23/2021 8:20 AM Jaspreet Kinsey MD [facility] Cardio [facility] Your Inpatient Medical Team at [facility] Name(s) of your inpatient provider(s): Attending - Jose Rodrigues MD Fellow - Brody Bernard MD Resident - Sandy Serna MD Marketing Professional - Sha Vale MD Your Primary Care Provider: JOCY Franco [phone] For questions regarding this document or issues relating to this hospitalization on the Medical Service, please contact your inpatient physician through the [facility] . Issues afterhours and on weekends will be handled by the Hospitalist staff on-call. For questions regarding this document or issues relating to this hospitalization on the Medical Service, please contact your inpatient physician through the [facility] . Issues afterhours and on weekends will be handled by the [facility] Houseperson staff on-call. Signed: Sandy Serna Internal Medicine PGY-3 Cardiovascular Medicine S2 Team Pager [phone] documented in this encounter Discharge Instructions * Patient Instructions* Sandy Serna MD - 06/14/2021 11:04 AM EDT Instructions on Discharge to Home Why you were hospitalized - You were hospitalized for an abnormal rhythm called SVT or supraventricular tachycardia. This caused an injury to your heart causing your symptoms, however was treated with a medication called metoprolol, a beta tiffanie than protects your heart from abnormal rhythms. Youwill continue this treatment at home as well. We have given you a referral for electrophysiology so that can discuss a possible ablation treatment to prevent you from having a recurrence of this rhythm. We recommend you follow up with an outpatient stress test that has been ordered for you as well. You will be contacted regarding scheduling. Call your doctor or seek medical attention if you develop the following - chest pain, shortness of breath, feeling dizzy upon standing, passing out, diarrhea, constipation lasting longer than 2 days,fevers (temperature over 100.3), chills, abdominal pain, vomiting, difficulty or discomfort when urinating, bloody or black bowel movements, or any other acute or concerning symptom. Activity level - No restrictions Diet - No change in previous diet Driving - As before hospitalization Shower/Bath - Permitted Wound Care - None Home Oxygen therapy - Not necessary Your Discharge Medication List Your Medications New Medications Dose Details metoprolol succinate XL 25 mg Tablet sr Commonly known as: Toprol-XL Take 1 tablet by mouth daily. 25 mg Quantity: 30 tablet Refills: 2 nitroGLYcerin 0.4 mg Subl Commonly known as: Nitrostat Place 1 tablet under the tongue every 5 minutes as needed for Chest pain. 0.4 mg Quantity: 30 tablet Refills: 1 Continued medications, unchanged Dose Details albuteroL 90 mcg/actuation Hfaa Inhale 2 puffs into the lungs every 4 hours as needed. Use with spacer 2 puff Refills: 0 aspirin 81 mg Chew Take 81 mg by mouth daily. 81 mg Quantity: 30 tablet Refills: 3 atorvastatin 80 mg Tab Commonly known as: Lipitor Take 1 tablet by mouth every evening. 80 mg Quantity: 90 tablet Refills: 3 budesonide-formoteroL 160-4.5 mcg/actuation Hfaa Commonly known as: Symbicort Inhale into the lungs. Refills: 0 diclofenac 1 % Gel Commonly known as: Voltaren APPLY TO SINGLE KNEE ANKLE OR FOOT SOLES TOES TOP OF FOOT ONCE DAILY Refills: [address] 60 mg Cpdr Commonly known as: Cymbalta Take 60 mg by mouth daily. 60 mg Refills: 0 Emgality Pen 120 mg/mL Pnij INJECT 2ML ONCE SINGLE DOSE ONCE Generic drug: galcanezumab-gnlm Refills: 0 empagliflozin 10 mg Tab Commonly known as: Jardiance Take 1 tablet by mouth daily. 10 mg Quantity: 90 tablet Refills: 1 fluticasone propionate 50 mcg/actuation Spsn Commonly known as: Flonase 1 spray by Each Nare route daily. 1 spray Refills: 0 furosemide 20 mg Tab Commonly known as: Lasix Take 1 tablet by mouth daily. 20 mg Quantity: 30 tablet Refills: 3 gabapentin 300 mg Cap Commonly known as: Neurontin Take 300 mg by mouth 2 times daily. 300 mg Refills: 0 hydrOXYzine 25 mg Tab Commonly known as: Atarax Take 25 mg by mouth every 6 hours as needed (Headache). 25 mg Refills: 0 lisinopriL 2.5 mg Tab Commonly known as: Zestril Take 1 tablet by mouth daily. 2.5 mg Quantity: 90 tablet Refills: 3 loratadine 10 mg Tab Commonly known as: Claritin Daily. Refills: 0 rOPINIRole 1 mg Tab Commonly known as: Requip TAKE 1 TABLET BY MOUTH 2 3 HOURS BEFORE BEDTIME Refills: 0 SUMAtriptan 100 mg Tab Commonly known as: Imitrex Take 100 mg by mouth as needed for Migraine. Initial dose: 25 mg, 50 mg, or 100 mg (take with fluids). May repeat dose after 2 hours. Max daily dose: 200 mg 100 mg Refills: 0 topiramate 50 mg Tab Commonly known as: TOPAMAX Take 50 mg by mouth 2 times daily. 50 mg in the morning, 100 mg at bedtime 50 mg Refills: 0 traZODone 50 mg Tab Commonly known as: Desyrel TAKE 1 TO 2 TABLETS BY MOUTH AT BEDTIME Refills: 0 zafirlukast 20 mg Tab Commonly known as: Accolate TAKE ONE TABLET BY MOUTH TWICE A DAY Refills: 0 Follow-up: You will be contacted regarding follow up appointments with your primary care provider, cardiology, and electrophysiology. Please be sure to keep these appointments and if you have not heard from your primary care provider in one week, call them to schedule an appointment. Future Appointments Date Time Provider Department Center 07/23/2021 8:20 AM Jaspreet Kinsey MD [facility] Cardio [facility] Your Inpatient Medical Team at [facility] Name(s) of your inpatient provider(s): Attending - Jose Rodrigues MD Fellow - Brody Bernard MD Resident - Sandy Serna MD Marketing Professional - Sha Vale MD Your Primary Care Provider: JOCY Franco [phone] For questions regarding this document or issues relating to this hospitalization on the Medical Service, please contact your inpatient physician through the [facility] . Issues afterhours and on weekends will be handled by the Hospitalist staff on-call. documented in this encounter Medications at Time [...] as needed. fluticasone propionate (FLONASE) 50 mcg/actuation [place], Suspension 1 spray by Each Nare route [...] 4 hours as needed. Use with spacer erenumab-aooe (Aimovig Autoinjector) 70 mg/mL Auto-Injector Inject subcutaneously every 30 days. 08/13/2020 04/22/2023 metoprolol succinate XL (Toprol-XL) 25 mg Tablet Sustained Release 24 hr Take 1 tablet by mouth daily. 30 tablet 2 06/14/2021 09/28/2022 nitroGLYcerin (Nitrostat) 0.4 mg Tablet, Sublingual Place 1 tablet under the tongue every 5 minutes as needed for Chest pain. 30 tablet 1 06/14/2021 11/17/2022 aspirin 81 mg Tablet, Chewable Take 81 mg by mouth daily. 30 tablet 3 06/10/2021 01/01/2022 atorvastatin (Lipitor) 80 mg Tablet Take 1 tablet by mouth every evening. 90 tablet 3 06/09/2021 09/28/2022 furosemide (Lasix) 20 mg Tablet Take 1 tablet by mouth daily. 30 tablet 3 06/10/2021 03/16/2022 lisinopriL (Zestril) 2.5 mg Tablet Take 1 tablet by mouth daily. 90 tablet 3 06/10/2021 01/01/2022 Emgality Pen 120 mg/mL Pen Injector INJECT 2ML ONCE SINGLE DOSE ONCE 06/28/2020 07/23/2021 traZODone (Desyrel) 50 mg Tablet TAKE 1 TO 2 TABLETS BY MOUTH AT BEDTIME 07/05/2020 11/17/2022 zafirlukast (Accolate) 20 mg Tablet TAKE ONE TABLET BY MOUTH TWICE A DAY 04/10/2020 07/23/2021 budesonide-formotero L (SYMBICORT) 160-4.5 mcg/actuation HFA Aerosol Inhaler Inhale into the lungs. 06/12/2020 diclofenac (VOLTAREN) 1 % Gel APPLY TO SINGLE KNEE ANKLE OR FOOT SOLES TOES TOP OF FOOT ONCE DAILY 06/21/2020 11/17/2022 hydrOXYzine (Atarax) 25 mg Tablet Take 25 mg by mouth every 6 hours as needed (Headache). 07/23/2021 SUMAtriptan (Imitrex) 100 mg Tablet Take 100 mg by mouth as needed for Migraine. Initial dose: 25 mg, 50 mg, or 100 mg (take with fluids). May repeat dose after 2 hours. Max daily dose: 200 mg 07/23/2021 documented as of this encounter Progress Notes * Katalina Wilkinson RN - 06/14/2021 12:06 PM EDT Pt to d/c home with family. AVS discussed with patient, all questions answered by RN pt verbalized understanding. Tele and ivs removed, all belongings to pt. * Dee Raymond RN - 06/14/2021 6:00 AM EDT OUTCOME SUMMARY: Pt A+Ox4. SB on telemetry, HR 45-60s, no reports of chest pain or SOB, CPAP on overnight. Heparin gtt maintained per protocol. See flowsheet for VS and I/O. Call ghosh within reach. PLAN MOVING FORWARD: possible cardiac cath pain management monitor manager monitoring I/O discharge planning as appropriate INDIVIDUALIZED FALL PREVENTION INTERVENTIONS: Patient-specific fall risk factors per assessment: [current deficits]: telemetry, IV tubing, CPAP Assistance [level of assistance required for transfers and ambulation]: SBA Supervision [direct monitoring required during toileting and ADLs]: SBA Surveillance [continuous indirect monitoring]: telemetry, call ghosh in reach, hourly rounding Patient-specific fall prevention interventions for sensory deficits provided, if applicable: N/A GOAL OUTCOME EVALUATION: ongoing assessment Dee Raymond RN * Rick Steele RRT - 06/14/2021 4:47 AM EDT Respiratory Care Nocturnal NIV Note Compliant Indication: Diagnosed MARYLOU Settings: NIV Mode: Auto BiLevel (V30) / Interface: Mask: Patient's own Size: Medium Skin Integrity: WDL Measurements: Resp: 11 Vte: 360 Mve: 5.6 Leak (L/min): 30 L/min SpO2: 98 % Assessment: Indira Roque was compliant with nocturnal non-invasive ventilation therapy t/o the night Plan: Continue NIV use when asleep. * Katalina Wilkinson RN - 06/13/2021 5:46 PM EDT Pt arrived safely to unit via ambulance from OSH. Restarted on heparin gtt, trending q6 trops see MAR and results. Flowsheets for I/O. Per provider note on admission possible stress test Wednesday. Safety maintained. documented in this encounter H&P Notes * Sha Vale MD - 06/13/2021 1:23 PM EDT Cardiology Admission History and Physical Patient Name: Indira Roque Service: cardiology S2 Team Responsible Attending: Dr. Ravi JOHN PCP: JOCY Franco PCP phone #: [phone] ID/Chief Complaint: Indira Roque is a 51 y.o. with hx of HFpEF, MARYLOU, who is admitted from [facility] with associated chest pain last night History of Present Illness: Indira Roque is a 51yo female with a pmhx of diastolic HFpEF, dyslipidemia, MARYLOU (home BiPAP),migraines, depression who is transferred from OSH for suspected type II demand ischemia in the setting of microvascular disease. The patient was sitting after finishing dinner last night when she hadsudden onset of dyspnea and chest pain radiating to her jaw line and shoulder. She also felt like her heart was racing. This lasted approximately 2 hours. She also felt pre-syncopic, chilled and nauseas. After EMS arrived on scene, SVT was captured on EKG with fast rhythm before spontaneously terminating. Her chest pain resolved when her rhythm flipped back into sinus. Her evaluation at the OSH was significant for elevated HS troponin and ST depressions on EKG. Indira [place] [facility] [place]. Of note, the patient was just [place] [facility] [place] pain on Wednesday06/09/2021. During that hospitalization she presented for chest pain, borderline troponins and ST changes on EKG. She underwentRHC showing mildly elevated PA pressures and a TTE showing normal EF. She was sent home with ziopatch which she is wearing now. She has been taking all of her medications at home this week. Here on exam the patient denies all symptoms. She has not had any chest pain since the ambulance last night. She is laying in the bed comfortably. Previous Cardiac Testing: TTE on 06/08/2021: 1. Left ventricle is of normal size. Wall thickness is normal. The left ventricular ejection fraction is 61% by Reyes's biplane. Left ventricular systolic function is normal. There are no segmental wall motion abnormalities.Left ventricular filling pressure is normal. 2. The right ventricle is of normal size. Right ventricular systolic function is normal. Pulmonary artery hypertension could not be assessed due to inadequate tricuspid regurgitation jet. 3. The atria are not well seen but the left atrium appears at least moderately dilated. 4. No significant valve disease. Right Heart Cath on 06/09/2021 Hemodynamics: Right Heart Pressures Resting: Syst Diast EDP a v m RA 8 5 4 RV 40 7 PA 38 15 24 PCW 15 13 11 Hemodynamic Profile: Profile 1 CO 3.14 CI 1.57 TPR 611 PVR 331 Oximetry: Location %Sat Location %Sat Superior Vena Cava 55.0 Main Pulmonary Artery 56.0 Pulmonary Capillary 89.0 peripheral pulse ox 97.0 Wedge Left heart coronary angiogram 08/30/2019 Coronary Angiography: Dominance: Right Left Main The left main was normal, free of disease. Left Anterior Descending The left anterior descending (LAD) was normal, free of disease. Left Circumflex The left circumflex (LCX) was normal, free of disease. Right Coronary Artery The right coronary artery (RCA) was normal, free of disease. Cardiac Medications: Lasix 20mg oral od Asa 81 od Atorvastatin 80mg od empagliflozin 10mg od Lisinopril 2.5 od Review of Systems: ROS negative unless otherwise noted above Problem List/Past Medical History Patient Active Problem List Diagnosis ??? Chest pain ??? Pulmonary hypertension, mild ??? Obesity ??? Dyslipidemia ??? Elevated blood pressure reading without diagnosis of hypertension ??? MARYLOU on CPAP ??? Restless leg syndrome ??? Insomnia ??? Chronic heart failure with preserved ejection fraction ??? Asthma ??? Rhinitis, nonallergic, chronic Meds: Current Outpatient Medications Medication Instructions ??? albuterol (PROVENTIL HFA;VENTOLIN HFA) 90 mcg/Actuation inhaler 2 puffs, Inhalation, EVERY 4 HOURS PRN, Use with spacer ??? aspirin 81 mg, Oral, DAILY ??? atorvastatin (LIPITOR) 80 mg, Oral, EVERY EVENING ??? budesonide-formoteroL (SYMBICORT) 160-4.5 mcg/actuation HFA Aerosol Inhaler Inhalation ??? diclofenac (VOLTAREN) 1 % Gel APPLY TO SINGLE KNEE ANKLE OR FOOT SOLES TOES TOP OF FOOT ONCE DAILY ??? DULoxetine DR (CYMBALTA) 60 mg, DAILY ??? Emgality Pen 120 mg/mL Pen Injector INJECT 2ML ONCE SINGLE DOSE ONCE ??? empagliflozin (JARDIANCE) 10 mg, Oral, DAILY ??? fluticasone propionate (FLONASE) 50 mcg/actuation [place], Suspension 1 spray, Each Nare, DAILY ??? furosemide (LASIX) 20 mg, Oral, DAILY ??? gabapentin (NEURONTIN) 300 mg, Oral, 2 TIMES DAILY ??? hydrOXYzine (ATARAX) 25 mg, Oral, EVERY 6 HOURS PRN ??? lisinopriL (ZESTRIL) 2.5 mg, Oral, DAILY ??? loratadine (Claritin) 10 mg Tablet DAILY ??? rOPINIRole (Requip) 1 mg Tablet TAKE 1 TABLET BY MOUTH 2 3 HOURS BEFORE BEDTIME ??? SUMAtriptan (IMITREX) 100 mg, Oral, PRN, Initial dose: 25 mg, 50 mg, or 100 mg (take with fluids). May repeat dose after 2 hours. Max daily dose: 200 mg ??? topiramate (TOPAMAX) 50 mg, Oral, 2 TIMES DAILY, 50 mg in the morning, 100 mg at bedtime ??? traZODone (Desyrel) 50 mg Tablet TAKE 1 TO 2 TABLETS BY MOUTH AT BEDTIME ??? zafirlukast (Accolate) 20 mg Tablet TAKE ONE TABLET BY MOUTH TWICE A DAY Allergies: Allergies Allergen Reactions ??? Clobetasol Rash Family History: Father from [place] s/p multiple coronary stents at Social History: Tobacco: never EtOH: never Living Situation: lives at home alone with who has MS and is not able to drive Vitals: Last value Range last 24 hrs Temperature Temp: 36.6 ??C (97.9 ??F) Temp: [36.6 ??C (97.9 ??F)] Heart Rate Heart Rate: (!) 49 Heart Rate: [49] Blood Pressure BP: 112/68 BP: (112)/(68) Respiratory Rate Resp: 12 Resp: [12] SpO2 SpO2: 99 % SpO2: [99 %] Examination: General: NAD, Well-appearing, well-nourished Head: NCAT Eyes: EOMI,no scleral icterus Oropharynx: MMM, no erythema, exudates, or lesions, good dentition Neck: Supple, trachea midline, no thyromegaly Lungs: CTAB Heart: RRR w/o M/R/G/C Abdomen: Soft, NT/ND, NABS : deferred Extremities: No edema or gross deformities Neuro: Cranial Nerves 2-12 grossly intact; no gross focal deficits Skin: No gross rashes, lesions, or ecchymoses Lymphatics: No cervical or clavicular LAD Laboratory: CBC: Recent Labs 06/09/21 0337 06/08/21 0441 06/07/21 1726 WBC 7.9 11.3* 12.0* HGB 15.2 13.9 14.5 PLATELET 334 312 346 Chemistry: Recent Labs 06/09/21 0337 06/08/21 0441 06/07/21 1726 NA 137 138 137 K 4.1 4.1 4.3 CL 102 103 101 CO2 22 22 24 BUN 23* 21* 18 CREATININE 0.86 0.87 1.07 Recent Labs 06/09/21 0337 06/08/21 0441 06/07/21 1726 CALCIUM 9.3 8.7 9.1 Cardiac enzymes: Recent Labs 06/08/21 1158 06/08/21 0441 06/07/21 1726 06/07/21 1704 TROPONINT -- <0.01 -- <0.01 CK 30 -- 33 -- Endocrine: Recent Labs 06/07/21 1726 TSH 5.83* Diagnostic Studies: EKG at OSH- ST segment depressions ekg here- pending Trop pending EKG pending Bmp, mag, phos pending Coag panel pending bnp pending TSH pending ASSESSMENT: Indira Roque is a 51 yo female with a history of diastolic HFpEF, MARYLOU on home BiPAP who is admitted after having anginal chest pain last night during a run of SVT. The differential diagnosis on this admission is epicardial artery disease versus microangiopathic disease leading to type II demand ischemia in the setting of SVT. Pt is clinically stable with no further anginal sx or sx of dyspnea. We will monitor troponins, start 48 hrs of therapeutic heparin and reassess for outpatient cardiac PET versus inpatient coronary catheterization and angiography for definitive diagnosis. Despite sinus morgan, we will start 12.5BID of metop for AV makayla blockade to decrease likelihood offurther SVT. PLAN: #diastolic HFpEF #mild pulmonary HTN #dyslipidemia (total cholesterol 164 with LDL 91) #suspected microvascular disease with type II demand ischemia NSTEMI in setting of SVT Continue home ASA 81 Continue home lasix 20mg daily Continue home lisinopril Continue home atorvastatin 80mg od Continue home jardiance 10mg PO daily Start 48 hrs of therapeutic heparin with monitoring Trend troponins Q6hrs Start metoprolol tartrate 12.5mg BID Monitor telemetry Baseline EKG Currently wearing ziopatch placed on 06/09 Daily weights #MARYLOU on home BiPAP RT consult for nocturnal BiPAP (home settings 20/02) #migraines Continue home topomax 50 mg AM and 100 mg PM Hold home sumatriptan #depression Continue home cymbalta and trazodone nightly #asthma Continue home duoneb PRN #restless leg syndrome Continue home ropinirole #insomnia Other: - DVT prophylaxis: therapeutic heparin for 48 hrs, SCD's - GI prophylaxis: N/A - Diet: NPO - Code Status: Full code - Dispo: floor status Sha Vale MD Cardiology service, PGY-1 Associated attestation - Jose Rodrigues MD - 06/13/2021 4:18 PM EDT Cardiology Attending Addendum I have personally interviewed and examined the patient and reviewed appropriate data, including labs, ECGs and other diagnostic studies. I agree with the principal findings documented herein. The assessment and plan were formulated in discussion with me. Story is consistent with SVT and type II NSTEMI in the setting of known microvascular disease. Patient feels better but not back to baseline. Will continue to trend trops and decide about possible HCvs outpatient PET to look at coronary flow reserve Jose Rodrigues MD, [facility] Section of Cardiovascular Medicine [facility] Investor Relations Analystcompound filler [facility] documented in this encounter Plan of Treatment Upcoming Encounters Date Type Department Care Team (Late st Contact Info) Description 10/08/2023 8:30 AM EDT Tech Visit Vascular Lab at [place] [phone] Jose Cook 10/08/2023 9:30 AM EDT Office [place] [phone] MD [facility] [place] [address] 10/21/2023 10:30 AM EDT Appointment Nuclear Medicine at [place] [phone] Mary Reyes [facility] [place] [address] 10/21/2023 11:30 AM EDT Appointment [place] [phone] Mary Reyes [facility] [place] [address] 10/21/2023 12:30 PM EDT Appointment [place] [phone] Mary Reyes [facility] [place] [address] 10/21/2023 1:30 PM EDT Appointment [place] [phone] Mary Reyes [facility] [place] [address] 10/21/2023 2:30 PM EDT Appointment [place] [phone] Mary Reyes APRN [facility] [place] [address] 10/26/2023 4:00 PM EDT Office Visit Cardiology at [address] [phone] Jaspreet Kinsey MD [facility] [place] [address] 10/28/2023 9:00 AM EDT Office [place] [address] 10/29/2023 10:00 AM EDT Clinical [place] [address] 10/29/2023 10:15 AM EDT Procedure [place] [address] 11/01/2023 5:00 PM EDT Office Visit Gastroenterology at [place] [phone] Selene Browning, PhD [facility] [place] [address] 11/22/2023 4:40 PM EDT Office Visit Cardiology at [place] [phone] Porsha Mcdaniels MD [facility] [place] [address] 12/13/2023 10:00 AM EDT Clinical Support [place] [phone] [facility] [place] [address] Scheduled Referrals Name Type Priority Associated Diagnoses Order Schedule Referral to Cardiac Electrophysiology Outpatient Referral Routine Supraventricular tachycardia Ordered: 06/14/2021 documented as of this encounter Procedures Procedure Name Priority Date/Time Associated Diagnosis Comments HC UNFRACTIONATED HEPARIN (HEP UFH) Routine 06/14/2021 5:13 AM EDT HEMOGRAM Routine 06/14/2021 5:13 AM EDT DIFFERENTIAL, AUTOMATED Routine 06/14/2021 5:13 AM EDT HC VENIPUNCTURE Routine 06/14/2021 5:13 AM EDT HC TROPONIN T STAT 06/14/2021 5:13 AM EDT MAGNESIUM Routine 06/14/2021 5:13 AM EDT BASIC METABOLIC PANEL (NON-FASTING) Routine 06/14/2021 5:13 AM EDT HC UNFRACTIONATED HEPARIN (HEP UFH) Routine 06/13/2021 9:41 PM EDT HC TROPONIN T STAT 06/13/2021 9:41 PM EDT XR CHEST PA AND LATERAL Routine 06/13/2021 8:12 PM EDT HC VENIPUNCTURE STAT 06/13/2021 6:40 PM EDT HC THYROID STIMULATING HORMONE, SERUM Routine 06/13/2021 3:26 PM EDT HEPARIN (UNFRACTIONATED) LEVEL Routine 06/13/2021 3:26 PM EDT BILIRUBIN, DIRECT STAT 06/13/2021 3:2 6 PM EDT HEMOGRAM Routine 06/13/2021 3:26 PM EDT DIFFERENTIAL, AUTOMATED Routine 06/13/2021 3:26 PM EDT HC PARTIAL THROMBOPLASTIN TIME Routine 06/13/2021 3:26 PM EDT HC PROTHROMBIN TIME Routine 06/13/2021 3 :26 PM EDT HC VENIPUNCTURE Routine 06/13/2021 3:26 PM EDT HC TROPONIN T STAT 06/13/2021 3:26 PM EDT T4, FREE Routine 06/13/2021 3:26 PM EDT PHOSPHORUS STAT 06/13/2021 3:26 PM EDT PRO-BRAIN NATRIURETIC PEPTIDE STAT 06/13/2021 3:26 PM EDT MAGNESIUM STAT 06/13/2021 3:26 PM EDT COMPREHENSIVE METABOLIC PANEL (NON-FASTING) STAT 06/13/2021 3:26 PM EDT EKG 12-LEAD Routine 06/13/2021 2:18 PM EDT Chest pain, unspecified type RAPID COVID-19 PCR ([facility]) Routine 06/13/2021 1:09 PM EDT documented in this encounter Results * Magnesium (06/14/2021 5:13 AM EDT) Magnesium 0.90 0.69 - 1.07 mmol/L [facility] Blood Venous Draw / Unknown 06/14/2021 5:13 AM EDT 06/14/2021 5:25 AM EDT Narrative Resulting Agency Comment Spec In Lab Sandy Serna MD CHEMISTRY ORDER ARABELLA [facility] [place] [address] * (ABNORMAL) Troponin (06/14/2021 5:13 AM EDT) Troponin-T 0.04(H) 0.00 - 0.00 ng/mL [facility] Comment: The 99th percentile for Troponin T is less than 0.01 ng/mL, any detectable cTnT concentration using this assay should be considered elevated. According to the third universal definition of myocardial infarction the following criteria with a clinical presentation consistent with acute myocardial ischemia meets the diagnosis for a myocardial infarction (MS). Detection of a rise and/or fall of cTnT, with at least one value greater than the 99th percentile (> or = 0.01) and with at least one of the following ?? Symptoms of ischemia ?? New or presumed new significant SW-nmkmmyz-U wave (ST-T) changes or new left bundle branch block (LBBB) ?? Development of pathologic Q waves in the ECG ?? Imaging evidence of new loss of viable myocardium or new regional wall motion abnormality ?? Identification of an intracoronary thrombus by angiography or autopsy Samples for cTnT testing should be obtained serially upon first assessment and again 3 to 6 hours later. If the clinical suspicion is high and previous samples have been negative an additional sample may be indicated. Reference: Third [place] Definition of Myocardial Infarction. Journal of the [place] [employer] 2012;60:1581-98 Blood 06/14/2021 5:13 AM EDT 06/14/2021 5:19 AM EDT Narrative Resulting Agency Comment Spec In Lab Jose Rodrigues MD CHEMISTRY ORDERABLES Performing Organization Address City/State/[facility] Co de Phone Number [facility] [place] [address] * Heparin (unfractionated) Level (06/14/2021 5:13 AM EDT) Heparin UFH Level 0.66 IU/mL [facility] Comment: Heparin (anti-Xa) [...] cardiac surgery): 0.1 ? 0.3 IU/mL Blood 06/14/2021 5:13 AM EDT 06/14/2021 5:19 AM EDT Narrative Resulting Agency Comment Spec In Lab Jose Rodrigues MD HEMATOLOGY ORDERABLE S [facility] [place] [address] * Differential, Automated (06/14/2021 5:13 AM EDT) Neutrophils % 62.5 % [facility] Neutr Abs (ANC) 4.36 1.70 - 6.10 x10(3)/[facility] Lymphocytes % 24.1 % [facility] Lymphocytes Abs 1.7 0.9 - 3.2 x10(3)/[facility] Monocytes % 9.2 % [facility] Monocyte Abs 0.6 0.3 - 0.9 x10(3)/[facility] Eosinophils % 2.9 % [facility] Eosinophils Abs 0.2 0.0 - 0.4 x10(3)/[facility] Basophils % 1.0 % [facility] Basophils Abs 0.1 0.0 - 0.1 x10(3)/[facility] Immature Gran % 0.30 % [facility] Comment: Immature granulocytes(IG's)percentage and absolute count will include metamyelocytes, myelocytes, and promyelocytes. Blood smears from CBCs yielding IG's will be scanned manually for concordance. If this scan disagrees with the automated IG or if promyelocytes are noted, a manual differential will be performed. Shonda Gran Abs 0.02 0.00 - 0.04 x10(3)/[facility] Blood 06/14/2021 5:13 AM EDT 06/14/2021 5:19 AM EDT Narrative Resulting Agency Comment Spec In Lab Sha Vale MD HEMATOLOGY ORDERABLE S [facility] [place] [address] * (ABNORMAL) Hemogram (06/14/2021 5:13 AM EDT) WBC 7.0 4.0 - 9.5 x10(3)/[facility] RBC 4.94 4.00 - 5.21 x10(6)/[facility] Hemoglobin 15.2 11.7 - 15.5 g/dL [facility] Hematocrit 46.5(H) 35.7 - 45.8 % [facility] MCV 94.1 82.6 - 94.4 [facility] MCH 30.8 27.1 - 32.0 pg [facility] MCHC 32.7 31.7 - 35.0 g/dL [facility] Platelets 252 145 - 357 x10(3)/[facility] RDWSD 48.5(H) 37.0 - 46.0 [facility] RDWCV 14.2(H) 11.5 - 14.1 % [facility] MPV 10.4 7.6 - 12.9 [facility] nRBC % Auto 0.0 % [facility] nRBC Abs Auto 0.000 0.000 - 0.000 x10(3)/[facility] Blood 06/14/2021 5:13 AM EDT 06/14/2021 5:19 AM EDT Narrative Resulting Agency Comment Spec In Lab Sha Vale MD HEMATOLOGY ORDERABLE S [facility] [place] [address] * (ABNORMAL) Basic Metabolic Panel (non-fasting) (06/14/2021 5:13 AM EDT) Glucose Lvl 98 65 - 199 mg/dL [facility] Comment:Diabetes: >=200 mg/d L plus symptoms BUN 21(H) 8 - 18 mg/dL [facility] Creatinine 0.80 0.70 - 1.20 mg/dL [facility] Sodium 138 135 - 145 mmol/L [facility] Potassium 4.2 3.5 - 5.0 mmol/L [facility] Comment: Please note: ??Patients with WBC >100,000 may have falsely elevated Potassium levels. ??For accurate Potassium quantification in these patients send serum separator tube (gold top) for subsequent determinations. ??Contact the Clinical Chemistry Laboratory if there are any questions. Chloride 106 98 - 107 mmol/L [facility] CO2 19(L) 22 - 31 mmol/L [facility] Anion Gap 13 5 - 15 mmol/L [facility] Calcium 9.0 8.5 - 10.5 mg/dL [facility] Estimated GFR 85 >=60 mL/min/1. 73 m?? [facility] Comment: This patient? s estimated glomerular filtration rate (eGFR) is between 85 mL/min/1.73 m2 (patients with less muscle mass) and 98 mL/min/1.73 m2 (patients with more muscle mass) as determined by the CKD-EPI equation. Assessment of eGFR is not appropriate when creatinine concentrations are rapidly changing. For clinical decisions where creatinine clearance will affect therapy, a 24-hour urine creatinine clearance may be advised. Assignment of CKD stage 1 - 5 for patients with an eGFR near the transition point between stages may be based on clinical assessment of muscle mass and symptoms in addition to eGFR. Blood 06/14/2021 5:13 AM EDT 06/14/2021 5:19 AM EDT Narrative Resulting Agency Comment Spec In Lab Jose Rodrigues MD CHEMISTRY ORDERABLES [facility] [place] [address] * (ABNORMAL) Troponin (06/13/2021 9:41 PM EDT) Troponin-T 0.04(H) 0.00 - 0.00 ng/mL [facility] Comment: The 99th percentile for Troponin T is less than 0.01 ng/mL, any detectable cTnT concentration using this assay should be considered elevated. According to the third universal definition of myocardial infarction the following criteria with a clinical presentation consistent with acute myocardial ischemia meets the diagnosis for a myocardial infarction (MS). Detection of a rise and/or fall of cTnT, with at least one value greater than the 99th percentile (> or = 0.01) and with at least one of the following ?? Symptoms of ischemia ?? New or presumed new significant SO-gquyaae-J wave (ST-T) changes or new left bundle branch block (LBBB) ?? Development of pathologic Q waves in the ECG ?? Imaging evidence of new loss of viable myocardium or new regional wall motion abnormality ?? Identification of an intracoronary thrombus by angiography or autopsy Samples for cTnT testing should be obtained serially upon first assessment and again 3 to 6 hours later. If the clinical suspicion is high and previous samples have been negative an additional sample may be indicated. Reference: Third [place] Definition of Myocardial Infarction. Journal of the [place] [employer] 2012;60:1581-98 Blood 06/13/2021 9:41 PM EDT 06/13/2021 9:55 PM EDT Narrative Resulting Agency Comment Spec In Lab Jose Rodriguse MD CHEMISTRY ORDERABLES Performing Organization Address City/[facility]/ZIP Co de Phone Number [facility] [place] [address] * Heparin (unfractionated) Level (06/13/2021 9:41 PM EDT) Pathologist [facility] Heparin UFH Level 0.33 IU/mL [facility] Comment: Heparin (anti-Xa) [...] cardiac surgery): 0.1 ? 0.3 IU/mL Blood 06/13/2021 9:41 PM EDT 06/13/2021 9:55 PM EDT Narrative Resulting Agency Comment Spec In Lab Jose Rodrigues MD HEMATOLOGY ORDERABLE S [facility] [place] [address] * XR Chest PA & Lateral (Generic) (06/13/2021 8:12 PM EDT) Anatomical Region Laterality Modality Chest N/A Digital Radiogra phy Impressions 06/14/2021 8:08 AM EDT Interval resolution of previously seen left lower lobe opacity. No acute process. Thank you for letting us participate in the care of this patient. ??If you are a health care provider and have any questions regarding this report, please contact the number below. ??For patients who have questions please contact the health wound care rn that requested 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 ? Narrative 06/14/2021 8:08 AM EDT EXAMINATION: XR CHEST PA AND LATERAL (GENERIC) CLINICAL HISTORY: f/u of prior opacity TECHNIQUE: 2 view chest. COMPARISON: 06/08/2021. FINDINGS: The lungs are clear. The previously visualized left lower lobe opacity is no longer identified. There is no pneumothorax or pleural effusion. There are no focal regions of concern for consolidation. The cardiomediastinal silhouette is unremarkable. Left-sided loop recorder. There is no acute osseous abnormality. Procedure Note Zenaida Tavares MD - 06/14/2021 EXAMINATION: XR CHEST PA AND LATERAL (GENERIC) CLINICAL HISTORY: f/u of prior opacity TECHNIQUE: 2 view chest. COMPARISON: 06/08/2021. FINDINGS: The lungs are clear. The previously visualized left lower lobe opacity isno longer identified. There is no pneumothorax or pleural effusion. There areno focal regions of concern for consolidation. The cardiomediastinalsilhouette is unremarkable. Left-sided loop recorder. There is no acute osseous abnormality. IMPRESSION Interval resolution of previously seen left lower lobe opacity. No acute process. Thank you for letting us participate in the care of this patient. If youare a health care provider and have any questions regarding this report,please contact the number below. For patients who have questions please contactthe health wound care rn that requested 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 Electronically signed by: ZENAIDA TAVARES [facility] ([phone]),at 06/14/2021 8:08 AM Jose Rodrigues MD IMG DX ORDERABLES * (ABNORMAL) Troponin (06/13/2021 6:40 PM EDT) Troponin-T 0.04(H) 0.00 - 0.00 ng/mL [facility] Comment: The 99th percentile for Troponin T is less than 0.01 ng/mL, any detectable cTnT concentration using this assay should be considered elevated. According to the third universal definition of myocardial infarction the following criteria with a clinical presentation consistent with acute myocardial ischemia meets the diagnosis for a myocardial infarction (MS). Detection of a rise and/or fall of cTnT, with at least one value greater than the 99th percentile (> or = 0.01) and with at least one of the following ?? Symptoms of ischemia ?? New or presumed new significant PB-etilwuq-I wave (ST-T) changes or new left bundle branch block (LBBB) ?? Development of pathologic Q waves in the ECG ?? Imaging evidence of new loss of viable myocardium or new regional wall motion abnormality ?? Identification of an intracoronary thrombus by angiography or autopsy Samples for cTnT testing should be obtained serially upon first assessment and again 3 to 6 hours later. If the clinical suspicion is high and previous samples have been negative an additional sample may be indicated. Reference: Third [place] Definition of Myocardial Infarction. Journal of the [place] [employer] 2012;60:1581-98 Blood 06/13/2021 6:40 PM EDT 06/13/2021 6:46 PM EDT Narrative Resulting Agency Comment Spec In Lab Jose Rodrigues MD CHEMISTRY ORDERABLES Performing Organization Address [facility]/ZIP Co de Phone Number [facility] [place] [address] * T4, free (06/13/2021 3:26 PM EDT) Free T4 1.08 0.93 - 1.70 ng/dL [facility] Comment: Reference Interval (ng/dL): Females: ??First Trimester: 0.97-1.68 ??Second Trimester: 0.77-1.51 ??Third Trimester: 0.77-1.49 Blood 06/13/2021 3:26 PM EDT 06/13/2021 3:52 PM EDT Narrative Resulting Agency Comment Spec In Lab Sha Vale MD CHEMISTRY ORDERABLES Performing Organization Address [facility]/ZIP Co de Phone Number [facility] [place] [address] * Heparin (unfractionated) Level (06/13/2021 3:26 PM EDT) Heparin UFH Level <0.04 IU/mL [facility] Comment: Specimen drawn more than one hour prior to testing. Results may not be reliable for heparin monitoring. Result may be falsely low. Heparin (anti-Xa) levels should be determined in [...] cardiac surgery): 0.1 ? 0.3 IU/mL Blood Venous Draw / Unknown 06/13/2021 3:26 PM EDT 06/13/2021 3:36 PM EDT Narrative Resulting Agency Comment Spec In Lab Jose Rodrigues MD HEMATOLOGY ORDERABLE S Performing Organization Address City/[facility]/ZIP Co de Phone Number [facility] [place] [address] * Bilirubin, Direct (06/13/2021 3:26 PM EDT) Bili, Direct 0.1 0.0 - 0.3 mg/dL [facility] Blood Venous Draw / Unknown 06/13/2021 3:26 PM EDT 06/13/2021 3:39 PM EDT Narrative Resulting Agency Comment Spec In Lab Sha Vale MD CHEMISTRY ORDERABLES Performing Organization Address [facility]/ZIP Co de Phone Number [facility] [place] [address] * (ABNORMAL) Comprehensive metabolic panel (non-fasting) (06/13/2021 3:26 PM EDT) Glucose Lvl 77 65 - 199 mg/dL [facility] Comment:Diabetes: >=200 mg/d L plus symptoms BUN 20(H) 8 - 18 mg/dL [facility] Creatinine 0.88 0.70 - 1.20 mg/dL [facility] Sodium 137 135 - 145 mmol/L [facility] Potassium 4.4 3.5 - 5.0 mmol/L [facility] Comment: Please note: ??Patients with WBC >100,000 may have falsely elevated Potassium levels. ??For accurate Potassium quantification in these patients send serum separator tube (gold top) for subsequent determinations. ??Contact the Clinical Chemistry Laboratory if there are any questions. Chloride 102 98 - 107 mmol/L [facility] CO2 17(L) 22 - 31 mmol/L [facility] Anion Gap 18(H) 5 - 15 mmol/L [facility] Calcium 9.2 8.5 - 10.5 mg/dL [facility] Total Protein 7.4 6.1 - 8.0 g/dL [facility] Albumin 4.0 3.2 - 5.2 g/dL [facility] AST 44(H) 0 - 30 unit/L [facility] ALT 31(H) 0 - 30 unit/L [facility] Alk Phos 70 35 - 105 unit/L [facility] Total Bilirubin 0.4 0.2 - 1.3 mg/dL [facility] Estimated GFR 76 >=60 mL/min/1. 73 m?? [facility] Comment: This patient? s estimated glomerular filtration rate (eGFR) is between 76 mL/min/1.73 m2 (patients with less muscle mass) and 88 mL/min/1.73 m2 (patients with more muscle mass) as determined by the CKD-EPI equation. Assessment of eGFR is not appropriate when creatinine concentrations are rapidly changing. For clinical decisions where creatinine clearance will affect therapy, a 24-hour urine creatinine clearance may be advised. Assignment of CKD stage 1 - 5 for patients with an eGFR near the transition point between stages may be based on clinical assessment of muscle mass and symptoms in addition to eGFR. Blood Venous Draw / Unknown 06/13/2021 3:26 PM EDT 06/13/2021 3:39 PM EDT Narrative Resulting Agency Comment Spec In Lab Sha Vale MD CHEMISTRY ORDERABLES [facility] [place] [address] * (ABNORMAL) pro-Brain Natriuretic Peptide (06/13/2021 3:26 PM EDT) ProBNP 2,479(H) <=124 pg/mL [facility] Blood Venous Draw / Unknown 06/13/2021 3:26 PM EDT 06/13/2021 3:39 PM EDT Narrative Resulting Agency Comment Spec In Lab Sha Vale MD CHEMISTRY ORDERABLES Performing Organization Address [facility]/ZIP Co de Phone Number [facility] [place] [address] * Magnesium (06/13/2021 3:26 PM EDT) Magnesium 0.93 0.69 - 1.07 mmol/L [facility] Blood Venous Draw / Unknown 06/13/2021 3:26 PM EDT 06/13/2021 3:39 PM EDT Narrative Resulting Agency Comment Spec In Lab Sha Vale MD CHEMISTRY ORDERABLES Performing Organization Address [facility]/ZIP Co de Phone Number [facility] [place] [address] * Phosphorus (06/13/2021 3:26 PM EDT) Phosphorus 3.6 2.5 - 4.5 mg/dL [facility] Blood Venous Draw / Unknown 06/13/2021 3:26 PM EDT 06/13/2021 3:39 PM EDT Narrative Resulting Agency Comment Spec In Lab hSa Vale MD CHEMISTRY ORDERABLES Performing Organization Address City/[facility]/ZIP Co de Phone Number [facility] [place] [address] * APTT (06/13/2021 3:26 PM EDT) PTT 29 25 - 37 sec [facility] Comment: The PTT is NOT appropriate for heparin monitoring. Use the Anti-Xa level for heparin monitoring (HEP UFH) or LMWH monitoring (HEP LMW). A PTT less than 37 seconds generally indicates adequate hemostasis. Blood 06/13/2021 3:26 PM EDT 06/13/2021 3:36 PM EDT Narrative Resulting Agency Comment Spec In Lab Jose Rodrigues MD HEMATOLOGY ORDERABLE S Performing Organization Address [facility] de Phone Number [facility] [place] [address] * Prothrombin Time (06/13/2021 3:26 PM EDT) PT 12.4 9.4 - 12.5 sec [facility] INR 1.1 [facility] Comment: An INR <2.0 [...] be appropriate depending on clinical circumstances. Blood 06/13/2021 3:26 PM EDT 06/13/2021 3:36 PM EDT Narrative Resulting Agency Comment Spec In Lab Jose Rodrigues MD HEMATOLOGY ORDERABLE S Performing Organization Address [facility] Co de Phone Number [facility] [place] [address] * (ABNORMAL) TSH Wise (06/13/2021 3:26 PM EDT) TSH 6.47(H) 0.27 - 4.20 mcIU/mL [facility] Comment: Reference Interval (mcIU/mL): Females: ??First Trimester: 0.23-3.88 ??Second Trimester: 0.22-3.90 ??Third Trimester: 0.44-4.66 Blood 06/13/2021 3:26 PM EDT 06/13/2021 3:37 PM EDT Narrative Resulting Agency Comment Spec In Lab Jose Rodrigues MD CHEMISTRY ORDERABLES [facility] [place] [address] * Differential, Automated (06/13/2021 3:26 PM EDT) Neutrophils % 64.4 % [facility] Neutr Abs (ANC) 4.05 1.70 - 6.10 x10(3)/[facility] Lymphocytes % 22.6 % [facility] Lymphocytes Abs 1.4 0.9 - 3.2 x10(3)/[facility] Monocytes % 10.0 % [facility] Monocyte Abs 0.6 0.3 - 0.9 x10(3)/[facility] Eosinophils % 1.8 % [facility] Eosinophils Abs 0.1 0.0 - 0.4 x10(3)/[facility] Basophils % 1.0 % [facility] Basophils Abs 0.1 0.0 - 0.1 x10(3)/[facility] Immature Gran % 0.20 % [facility] Comment: Immature granulocytes(IG's)percentage and absolute count will include metamyelocytes, myelocytes, and promyelocytes. Blood smears from CBCs yielding IG's will be scanned manually for concordance. If this scan disagrees with the automated IG or if promyelocytes are noted, a manual differential will be performed. Shonda Gran Abs 0.01 0.00 - 0.04 x10(3)/[facility] Blood 06/13/2021 3:26 PM EDT 06/13/2021 3:37 PM EDT Narrative Resulting Agency Comment Spec In Lab Sha Vale MD HEMATOLOGY ORDERABLE S [facility] [place] [address] * (ABNORMAL) Hemogram (06/13/2021 3:26 PM EDT) Pathologist [facility] WBC 6.3 4.0 - 9.5 x10(3)/[facility] RBC 5.27(H) 4.00 - 5.21 x10(6)/[facility] Hemoglobin 16.1(H) 11.7 - 15.5 g/dL [facility] Hematocrit 49.7(H) 35.7 - 45.8 % [facility] MCV 94.3 82.6 - 94.4 [facility] MCH 30.6 27.1 - 32.0 pg [facility] MCHC 32.4 31.7 - 35.0 g/dL [facility] Platelets 237 145 - 357 x10(3)/[facility] RDWSD 49.1(H) 37.0 - 46.0 [facility] RDWCV 14.2(H) 11.5 - 14.1 % [facility] MPV 11.3 7.6 - 12.9 [facility] nRBC % Auto 0.0 % [facility] nRBC Abs Auto 0.000 0.000 - 0.000 x10(3)/[facility] Blood 06/13/2021 3:26 PM EDT 06/13/2021 3:37 PM EDT Narrative Resulting Agency Comment Spec In Lab Sha Vale MD HEMATOLOGY ORDERABLE S [facility] [place] [address] * (ABNORMAL) Troponin (06/13/2021 3:26 PM EDT) Pathologist [facility] Troponin-T 0.04(H) 0.00 - 0.00 ng/mL [facility] Comment: The 99th percentile for Troponin T is less than 0.01 ng/mL, any detectable cTnT concentration using this assay should be considered elevated. According to the third universal definition of myocardial infarction the following criteria with a clinical presentation consistent with acute myocardial ischemia meets the diagnosis for a myocardial infarction (MS). Detection of a rise and/or fall of cTnT, with at least one value greater than the 99th percentile (> or = 0.01) and with at least one of the following ?? Symptoms of ischemia ?? New or presumed new significant FS-ycrgeuf-I wave (ST-T) changes or new left bundle branch block (LBBB) ?? Development of pathologic Q waves in the ECG ?? Imaging evidence of new loss of viable myocardium or new regional wall motion abnormality ?? Identification of an intracoronary thrombus by angiography or autopsy Samples for cTnT testing should be obtained serially upon first assessment and again 3 to 6 hours later. If the clinical suspicion is high and previous samples have been negative an additional sample may be indicated. Reference: Third [place] Definition of Myocardial Infarction. Journal of the [place] [employer] 2012;60:1581-98 Blood 06/13/2021 3:26 PM EDT 06/13/2021 3:37 PM EDT Narrative Resulting Agency Comment Spec In Lab Jose Rodrigues MD CHEMISTRY ORDERABLES [facility] [place] [address] * EKG 12 Lead (06/13/2021 2:18 PM EDT) Ventricular rate 48 BPM MUSE SYSTEM Atrial Rate 48 BPM MUSE SYSTEM P-R Interval 196 ms MUSE SYSTEM QRS Duration 84 ms MUSE SYSTEM Q-T Interval 498 ms MUSE SYSTEM QTC Calculated (Bezet) 444 ms MUSE SYSTEM Calculated P [place] 1 degrees MUSE SYSTEM Calculated R [place] 27 degrees MUSE SYSTEM Calculated T [place] -27 degrees MUSE SYSTEM INTERPRETATION Sinus bradycardia Nonspecific ST and T wave abnormality Abnormal ECG When compared with ECG of 07-JUN-2021 16:33, No significant change was found I personally reviewed the tracing and edited the fellows interpretation Confirmed by fellow Jaspreet Grimm ([id number]) on 06/16/2021 1:34:45 PM Confirmed by MD Angelo Danette ([id number]) on 06/16/2021 1:39:20 PM MUSE SYSTEM 06/13/2021 2:18 PM EDT 06/16/2021 1:39 PM EDT Jose Rodrigues MD ECG ORDERABLES MUSE SYSTEM * COVID-19 PCR (06/13/2021 1:09 PM EDT) SARS-CoV-2 RNA PCR Not Detected Not Detected [facility] Comment: This result should be interpreted in combination with the clinical observations, patient history and epidemiological information. For testing of asymptomatic individuals, assay performance characteristics and clinical utility have not been evaluated. Testing for SARS-CoV-2 (Severe acute respiratory syndrome coronavirus 2, formerly known as 2019 novel coronavirus or 2019-nCoV) to aid in the diagnosis of COVID-19 is performed using the Simplexa COVID-19 Direct Assay by [employer] as authorized by the FDA issued Emergency Use Authorization (EUA). This assay is intended for In-vitro Diagnostic (IVD) use with nasopharyngeal swabs collected from individuals meeting the CDC criteria for testing. The assay is performed based on the instructions for use and additional guidance provided by the FDA. Testing is performed in the Microbiology Laboratory within the Department of Pathology and Laboratory Medicine at [facility], certified under the Clinical Laboratory Improvement Amendments of 1988 (CLIA), 42 U.S.C. section 263a, to perform high complexity tests. Assay performance has been verified according to clinical laboratory regulatory requirements. Test results are provided above. A result of Not Detected indicates that the viral RNA target is not present but does not preclude SARS-CoV-2 infection. False negative results may occur if a specimen is improperly collected, transported or handled; if amplification inhibitors are present; or if inadequate numbers of viral particles are present in the specimen. A result of Detected suggests a current or recent infection and the patient is presumed to be infected. Positive and negative predictive values for this test are highly dependent on disease prevalence. A result of Invalid indicates the inability to conclusively determine the presence or absence of SARS-CoV-2 RNA in the sample which can be due to a variety of factors. Recollection is recommended in the case of an invalid result. CDC COVID-19 criteria for testing on human specimens and clinical management guidance information are available at the CDC Coronavirus Disease 2019 (COVID-19) webpage under Information for Healthcare Professionals (https://www.cdc.gov/coronavirus/2019-ncov/hcp/index.html). Additional information about this and other EUA tests can be found in provider and patient fact sheets at the following FDA website: https://www.fda.gov/medical-devices/irggnbsjfym-xplyrwc-0318-mjmwa-46-mwappmzsn- use-a jtrehrrheiyrt-jkizqtt-qxmtnfc/knhig-zpejqkynhsd-twho SARS-CoV-2 Source DIRECTOR [employer] Swab [facility] Nasopharyngeal Swab 06/14/19 1:09 PM EDT 06/13/2021 1:45 PM EDT Comment:Symptoms->Surveillan ce Narrative Resulting Agency Comment Spec In Lab Jose Rodrigues MD MICROBIOLOGY - GENER AL ORDERABLES [facility] [place] [address] documented in this encounter Visit Diagnoses Diagnosis Chest pain, unspecified type Supraventricular tachycardia Other specified cardiac dysrhythmias Chest pain due to myocardial ischemia, unspecified ischemic chest pain type Chest pain Chest pain, unspecified documented in this encounter Admitting Diagnoses Diagnosis Chest pain Chest pain, unspecified documented in this encounter Administered Medications Inactive Administered Medications - up to 3 most recent administrations Medication Order MAR Action Action Date Dose Rate Site aspirin chewable tablet 81 mg 81 mg, Oral, DAILY, First dose on Wed06/13/21 at 1430, Until Discontinued, Routine Given 06/14/2021 9:42 AM EDT 81 mg Given 06/13/2021 2:16 PM EDT 81 mg atorvastatin (Lipitor) tablet 80 mg 80 mg, Oral, EVERY EVENING, First dose on Wed06/13/21 at 1700, Until Discontinued, Routine Given 06/13/2021 5:26 PM EDT [address] (Cymbalta) capsule 60 mg 60 mg, Oral, DAILY, First dose on Wed06/13/21 at 1430, Until Discontinued, Routine Given 06/14/2021 9:42 AM EDT 60 mg empagliflozin (Jardiance) Tab 10 mg 10 mg, Oral, DAILY, First dose on Wed06/14/21 at 0900, Until Discontinued, Routine Given 06/14/2021 9:48 AM EDT 10 mg furosemide (Lasix) tablet 20 mg 20 mg, Oral, DAILY, First dose on Wed06/13/21 at 1430, Until Discontinued, Routine Given 06/14/2021 9:42 AM EDT 20 mg Given 06/13/2021 2:17 PM EDT 20 mg gabapentin (Neurontin) capsule 300 mg 300 mg, Oral, 2 TIMES DAILY, First dose on Wed06/13/21 at 2100, Until Discontinued, Routine Given 06/14/2021 9:42 AM EDT 300 mg Given 06/13/2021 8:57 PM EDT 300 mg heparin (porcine) 50 units/mL in sodium chloride 0.45% 500 mL infusion 0-5,000 Units/hr (0-100 mL/hr), Intravenous, CONTINUOUS, Starting on Wed06/13/21 at 1530, Until Wed06/14/21 at 0917, Begin infusion at 1,000 units per hr [...] by 300 units per hour (3 units/kg/hr) Repeat Heparin UFH Level 6 hours after initiating heparin. Then 6 hours after each dose adjustment. When 2 consecutive Heparin UFH Level within target range of 0.3 - 0.7 international unit/mL, change Heparin UFH Level to once every 24 hours with A.M. labs while on heparin. RN to order required Heparin UFH Level - Per Protocol, Routine Rate/Dose Verify 06/14/2021 6:00 AM EDT 1,000 Units/hr 20 mL/hr Rate/Dose Verify 06/14/2021 5:13 AM EDT 1,000 Units/hr 20 mL/hr Rate/Dose Verify 06/14/2021 4:00 AM EDT 1,000 Units/hr 20 mL/hr lidocaine (Xylocaine) 1% (10 mg/mL) injection 3 mg 3 mg (0.3 mL), Subcutaneous, ONCE PRN, 1 dose, Starting on Wed06/13/21 at 1345, Until 06/14/21 at 1522, for discomfort with PIV insertion, Routine lisinopriL (Zestril) tablet 2.5 mg 2.5 mg, Oral, DAILY, First dose on Wed06/13/21 at 1430, Until Discontinued, Routine Given 06/14/2021 9:42 AM EDT 2.5 mg Given 06/13/2021 2:16 PM EDT 2.5 mg metoprolol tartrate (Lopressor) tablet 12.5 mg 12.5 mg, Oral, EVERY 12 HOURS SCHEDULED (2 times per day), First dose on Wed06/13/21 at 2100, Until Discontinued, Hold for sbp<90, hr<60, Routine Given 06/14/2021 10:22 AM EDT 12.5 mg Given 06/13/2021 8:57 PM EDT 12.5 mg nitroGLYcerin (Nitrostat) disintegrating tablet 0.4 mg 0.4 mg, Sublingual, EVERY 5 MIN PRN, Starting on Wed06/13/21 at 1345, Until 06/14/21 at 1522, Chest pain, May repeat every 5 minutes for a total of three doses. Notify provider if chest pain not relieved with nitroglycerin. Do not administer nitroglycerin if the patient has received or taken phosphodiesterase (PDE-5) inhibitors such as sildenafil, tadalafil or vardenafil within the last 24 to 72 hours., Routine rOPINIRole (Requip) tablet 2 mg 2 mg, Oral, NIGHTLY, First dose (after last modification) on Wed06/13/21 at 2100, Until Discontinued, Routine Given 06/13/2021 9:01 PM EDT 2 mg sodium chloride 0.9 % (flush) (BD PosiFlush Normal Saline 0.9) flush 5 mL 5 mL, Intravenous, 2 TIMES DAILY, First dose on Wed06/13/21 at 1445, Until Discontinued, Routine Given 06/14/2021 9:47 AM EDT 5 mLs Given 06/13/2021 9:02 PM EDT 5 mLs Given 06/13/2021 2:17 PM EDT 5 mLs sodium chloride 0.9 % (flush) (BD PosiFlush Normal Saline 0.9) flush 5-20 mL 5-20 mL, Intravenous, EVERY 1 MIN PRN, Starting on Wed06/13/21 at 1345, Until 06/14/21 at 1522, flush, Flush pertains to all indwelling lines. Flush per protocol found in the job aid using the link provided on this medication record., Routine topiramate (Topamax) tablet 100 mg 100 mg, Oral, DAILY, First dose on Wed06/13/21 at 2100, Until Discontinued, DO NOT SPLIT, CRUSH OR OPEN, Routine Given 06/13/2021 8:57 PM EDT 100 mg topiramate (Topamax) tablet 50 mg 50 mg, Oral, DAILY, First dose (after last modification) on Wed06/14/21 at 0900, Until Discontinued, Routine Given 06/14/2021 9:42 AM EDT 50 mg traZODone (Desyrel) tablet 50 mg 50 mg, Oral, NIGHTLY, First dose (after last modification) on Wed06/13/21 at 2100, Until Discontinued, Routine Given 06/13/2021 9:01 PM EDT 50 mg documented in this encounter Active and Recently Administered Medications Times are shown in EDT. Scheduled Medication Order 06/12/2021 06/13/2021 06/14/2021 aspirin chewable tablet 81 mg 81 mg, Oral, DAILY, First dose on Wed06/13/21 at 1430, Until Discontinued, Routine 1416 (Given - Provider: Katalina Wilkinson RN) 0942 (Given - Provider: Katalina Wilkinson RN) atorvastatin (Lipitor) tablet 80 mg 80 mg, Oral, EVERY EVENING, First dose on Wed06/13/21 at 1700, Until Discontinued, Routine 1726 (Given - Provider: Katalina Wilkinson RN) DULoxetine DR (Cymbalta) capsule 60 mg 60 mg, Oral, DAILY, First dose on Wed06/13/21 at 1430, Until Discontinued, Routine 1417 (Not Given - Provider: Katalina Wilkinson RN - Reason: See comment - Comment: pt states given at OSH) 0942 (Given - Provider: Katalina Wilkinson RN) empagliflozin (Jardiance) Tab 10 mg 10 mg, Oral, DAILY, First dose on Wed06/14/21 at 0900, Until Discontinued, Routine 0948 (Given - Provid er: Katalina Wilkinson RN) furosemide (Lasix) tablet 20 mg 20 mg, Oral, DAILY, First dose on Wed06/13/21 at 1430, Until Discontinued, Routine 1417 (Given - Provider: Katalina Wilkinson RN) 0942 (Given - Provider: Katalina Wilkinson RN) gabapentin (Neurontin) capsule 300 mg 300 mg, Oral, 2 TIMES DAILY, First dose on Wed06/13/21 at 2100, Until Discontinued, Routine 205 (Given - Provider: Dee Raymond RN) 0942 (Given - Provider: Katalina Wilkinson RN) lisinopriL (Zestril) tablet 2.5 mg 2.5 mg, Oral, DAILY, First dose on Wed06/13/21 at 1430, Until Discontinued, Routine 1416 (Given - Provider: Katalina Wilkinson RN) 0942 (Given - Provider: Katalina Wilkinson RN) metoprolol tartrate (Lopressor) tablet 12.5 mg 12.5 mg, Oral, EVERY 12 HOURS SCHEDULED (2 times per day), First dose on Wed06/13/21 at 2100, Until Discontinued, Hold for sbp<90, hr<60, Routine 2057 (Given - Provider: Dee Raymond RN) 1022 (Given - Provider: Katalina Wilkinson RN - Comment: nba osborne/ fiorella) rOPINIRole (Requip) tablet 2 mg 2 mg, Oral, NIGHTLY, First dose (after last modification) on Wed06/13/21 at 2100, Until Discontinued, Routine 2100 (Given - Provider: Dee Raymond RN) sodium chloride 0.9 % (flush) (BD PosiFlush Normal Saline 0.9) flush 5 mL 5 mL, Intravenous, 2 TIMES DAILY, First dose on Wed06/13/21 at 1445, Until Discontinued, Routine 1416 (Given - Provider: Katalina Wilkinson RN)2101 (Given - Provider: Dee Raymond RN) 09 (Given - Provider: Katalina Wilkinson RN) topiramate (Topamax) tablet 100 mg 100 mg, Oral, DAILY, First dose on Wed06/13/21 at 2100, Until Discontinued, DO NOT SPLIT, CRUSH OR OPEN, Routine 2056 (Given - Provider: Dee Raymond RN) topiramate (Topamax) tablet 50 mg 50 mg, Oral, DAILY, First dose (after last modification) on 06/14/21 at 0900, Until Discontinued, Routine 941 (Given - Provid er: Katalina Wilkinson RN) traZODone (Desyrel) tablet 50 mg 50 mg, Oral, NIGHTLY, First dose (after last modification) on Wed06/13/21 at 2100, Until Discontinued, Routine 2100 (Given - Provider: Dee Raymond RN) Continuous Medication Order 06/12/2021 06/13/2021 06/14/2021 heparin (porcine) 50 units/mL in sodium chloride 0.45% 500 mL infusion (CANCELED)(Linked Group 1) 0-5,000 Units/hr (0-100 mL/hr), Intravenous, CONTINUOUS, Starting on Wed06/13/21 at 1530, Until 06/14/21 at 0917, Begin infusion at 1,000 units per hr [...] by 300 units per hour (3 units/kg/hr) Repeat Heparin UFH Level 6 hours after initiating heparin. Then 6 hours after each dose adjustment. When 2 consecutive Heparin UFH Level within target range of 0.3 - 0.7 international unit/mL, change Heparin UFH Level to once every 24 hours with A.M. labs while on heparin. RN to order required Heparin UFH Level - Per Protocol, Routine 1536 (New Bag - Provider: Katalina Wilkinson RN)2000 (Rate/Dose Verify - Provider: Dee Raymond RN)2141 (Rate/Dose Verify - Provider: Dee Raymond RN)2200 (Rate/Dose Verify - Provider: Dee Raymond RN) 0000 (Rate/Dose Verify - Provider: Annalisa Chris)0200 (Rate/Dose Verify - Provider: Annalisa Chris)0400 (Rate/Dose Verify - Provider: Annalisa Chris)0513 (Rate/Dose Verify - Provider: Dee Raymond RN)0600 (Rate/Dose Verify - Provider: Dee Raymond RN)0930 (Stopped - Provider: Katalina Wilkinson RN) PRN Medication Order 06/12/2021 06/13/2021 06/14/2021 hydrOXYzine (Atarax) tablet 25 mg 25 mg, Oral, EVERY 6 HOURS PRN, Starting on Wed06/13/21 at 1343, Until 06/14/21 at 1522, Headache, Routine ipratropium-albuteroL (Duoneb) 0.5 mg-3 mg(2.5 mg base)/3 mL nebulizer solution 3 mL 3 mL, Nebulization, 4 TIMES DAILY PRN, Starting on Wed06/13/21 at 1343, Until 06/14/21 at 1522, Wheezing, Routine lidocaine (Xylocaine) 1% (10 mg/mL) injection 3 mg 3 mg (0.3 mL), Subcutaneous, ONCE PRN, 1 dose, Starting on Wed06/13/21 at 1345, Until 06/14/21 at 1522, for discomfort with PIV insertion, Routine nitroGLYcerin (Nitrostat) disintegrating tablet 0.4 mg 0.4 mg, Sublingual, EVERY 5 MIN PRN, Starting on Wed06/13/21 at 1345, Until 06/14/21 at 1522, Chest pain, May repeat every 5 minutes [...] Intravenous, EVERY 1 MIN PRN, Starting on Wed06/13/21 at 1345, Until 06/14/21 at 1522, flush, Flush pertains to all indwelling lines. Flush per protocol found in the job aid using the link provided on this medication record., Routine Linked Groups Order Group 1: heparin (porcine) 50 units/mL in sodium chloride 0.45% 500 mL infusion (CANCELED)Jump to med 0-5,000 Units/hr (0-100 mL/hr), Intravenous, CONTINUOUS, Starting on Wed06/13/21 at 1530, Until 06/14/21 at 0917, Begin infusion at 1,000 units per hr [...] by 300 units per hour (3 units/kg/hr) Repeat Heparin UFH Level 6 hours after initiating [...] Intravenous, BOLUS PER HEPARIN PROTOCOL, Starting on Wed06/13/21 at 1431, Until 06/14/21 at 0917, Per Protocol, START ADJUSTMENT SCHEDULE 6 HOURS [...] Routine documented in this encounter Care Teams Engine Inspector Relationship Specialty Start Date End Date Polo Pearce PA [address] [place] [address] PCP - General Internal Medicine 06/09/21 documented as of this encounter
--- OUTSIDE RECORDS SUMMARY | 2023-09-20 14:38 | XMS_ITS | Encounter Summary ---
Author Organization Formerly [facility] [place] [address] Care Team Providers Care Navigation Teacher Name Role Phone Ramses Polo SANDRA Primary Care Provider [phone] Encounter Details Date Type Department Care Team (Late st Contact Info) Description 03/11/2022 Orders Only Cardiology at [address] [phone] Jed Tovar MD [facility] [place] [address] SVT (supraventricular tachycardia) Social History Tobacco Use [...] Tech [place] [address] Jose Cook 10/08/2023 9:30 AM EDT Office [place] [address] MD [facility] [place] [address] 10/21/2023 10:30 AM EDT Appointment [place] [phone] Mary Reyes, [facility] [place] [address] 10/21/2023 11:30 AM EDT Appointment [place] [phone] Mary Reyes, [facility] [place] [address] 10/21/2023 12:30 PM EDT Appointment [place] [phone] Mary Reyes, [facility] [place] [address] 10/21/2023 1:30 PM EDT Appointment [place] [phone] Mary Reyes, [facility] [place] [address] 10/21/2023 2:30 PM EDT Appointment [place] [phone] Mary Reyes, [facility] [place] [address] 10/26/2023 4:00 PM EDT Office Visit Cardiology at [address] [phone] Jaspreet Kinsey MD [facility] [place] [address] 10/28/2023 9:00 AM EDT Office [place] [address] 10/29/2023 10:00 AM EDT Clinical [place] [address] 10/29/2023 10:15 AM EDT Procedure [place] [address] 11/01/2023 5:00 PM EDT Office Visit Gastroenterology at [place] [phone] Selene Browning, PhD [facility] [place] [address] 11/22/2023 4:40 PM EDT Office Visit Cardiology at [address] [phone] Porsha Mcdaniels MD [facility] [place] [address] 12/13/2023 10:00 AM EDT Clinical [place] [phone] Lucero Romero, [place] [facility] [place] [address] documented as of this encounter Visit Diagnoses Diagnosis SVT (supraventricular tachycardia) Other specified cardiac dysrhythmias documented in this encounter Care Teams Navigation Teacher Relationship Specialty Start Date End Date Polo Pearce PA [address] [place] [address] PCP - General Internal Medicine 06/09/21 documented as of this encounter
--- OUTSIDE RECORDS SUMMARY | 2023-09-20 14:38 | XMS_ITS | Encounter Summary ---
Author Organization [facility] Address [facility] [place] [address] Care Team Providers Care Artificial Intelligence Specialist Name Role Phone Polo Pearce Primary Care Provider [phone] Encounter Details Date Type Department Care Team (Late st Contact Info) Description 09/17/2021 Telephone Cardiology at [address] [place] [address] Jaspreet Kinsey MD [facility] [place] [address] Social History Tobacco Use Types Packs/Day Years [...] Telephone Encounter - Nilda Mayes RN - 09/22/2021 9:50 AM EDT Left VM for Florencia that Dr. Kinsey indicated recovery from the viral URI will take a bit more time. * Telephone Encounter - Nilda Mayes RN - 09/19/2021 4:48 PM EDT Call back to Indira about her symptoms she reported. Indira reports she had been feeling better and tolerated more activity until she got a viral illness from August to early September. The most problematic respiratory symptoms were coughing, feeling shortof breath, and decreased energy and ability to climb stairs. She was told it was a viral illness but was not told what the virus name was. She was prescribed benzonatate but she felt that was unhelpful. She has found the albuterol inhaler unhelpful. Currently: she still gets very tired by the middle of the day. She often has fatigue with sense of difficulty breathing and a (non-specific) chest pain. Climbing stairs quickly will trigger this. Relief is experienced if she stops and rests. Med list reviewed. Remarkable: she reports taking Toprol 50 mg daily (not 25 mg daily) for past 6-12 months. Med list updated / reconciled to reflect this. Indira is not expecting an immediate response. Dr. Kinsey is at another work site but will return to this clinic on Wednesday. Discussion Viral illnesses can make you have sustained fatigue and symptoms for many weeks after the acute stage. This may be running its course as she recovers. The concerns / symptoms are also possibly related to cardiac condition and will be brought to Dr. Kinsey' attention. Follow up call back will likely be on Wednesday * Telephone Encounter - Aide Glass - 09/17/2021 9:18 AM EDT Patient called to check on her next appointment. Also, she said she is having chest issues everyday. The pain comes most days but is not unbearable. Please call on her work phone @ [phone]. Or you may leave a message on her cell phone @ [phone] documented in this encounter Plan of Treatment Upcoming Encounters Date Type Department Care Team (Late st Contact Info) Description 10/08/2023 8:30 AM EDT Tech [place] [address] Jose Cook 10/08/2023 9:30 AM EDT Office Visit Vascular Surgery at [address] MD [facility] [place] [place] [address] 10/21/2023 10:30 AM EDT Appointment Nuclear Medicine at [address] Mary Reyes [facility] [address] 10/21/2023 11:30 AM EDT Appointment Nuclear Medicine at [address] Mary Reyes [facility] [place] [address] 10/21/2023 12:30 PM EDT Appointment Nuclear Medicine at [address] Mary Reyes [facility] [place] [address] 10/21/2023 1:30 PM EDT Appointment Nuclear Medicine at [place] [phone] Mary Reyes [facility] [address] 10/21/2023 2:30 PM EDT Appointment Nuclear Medicine at [place] [phone] Mary Reyes [facility] [place] [address] 10/26/2023 4:00 PM EDT Office Visit Cardiology at [address] [place] [phone] Jaspreet Kinsey MD [facility] [place] [address] 10/28/2023 9:00 AM EDT Office Visit [place] [address] 10/29/2023 10:00 AM EDT Clinical [place] [address] 10/29/2023 10:15 AM EDT Procedure visit [place] [address] 11/01/2023 5:00 PM EDT Office Visit Gastroenterology at [place] [phone] Selene Browning, PhD [facility] [place] [address] 11/22/2023 4:40 PM EDT Office Visit Cardiology at [address] [phone] Porsha Mcdaniels MD [facility] [place] [address] 12/13/2023 10:00 AM EDT Clinical Support [place] [phone] [facility] [place] [address] documented as of this encounter Visit Diagnoses Not on filedocumented in this encounter Care Teams Artificial Intelligence Specialist Relationship Specialty Start Date End Date [place] [address] PCP - General Internal Medicine 06/09/21 documented as of this encounter
--- OUTSIDE RECORDS SUMMARY | 2023-09-20 14:38 | XMS_ITS | Encounter Summary ---
Author Organization [facility] Address [facility] [place] [address] Care Team Providers Care Nuclear Control Operator Name Role Phone Polo Pearce Primary Care Provider [phone] Encounter Details Date Type Department Care Team (Late st Contact Info) Description 12/31/2021 Orders Only Cardiology at [address] [phone] Umberto Joy PA [facility] [place] [address] SVT (supraventricular tachycardia) Social History Tobacco Use [...] AM EDT Tech [place] [phone] Jose Cook 10/08/2023 9:30 AM EDT Office Visit [place] [phone] MD [facility] [place] [address] 10/21/2023 10:30 AM EDT Appointment Nuclear Medicine at [address] Mary Reyes [facility] [place] [address] 10/21/2023 11:30 AM EDT Appointment Nuclear Medicine at [address]1000 Mary Reyes [facility] [address] 10/21/2023 12:30 PM EDT Appointment Nuclear Medicine at [place] [phone] Mary Reyes [facility] [address] 10/21/2023 1:30 PM EDT Appointment [place] [phone] Mary Reyes [facility] [place] [address] 10/21/2023 2:30 PM EDT Appointment [place] [phone] Mary Reyes [facility] [place] [address] 10/26/2023 4:00 PM EDT Office Visit Cardiology at [address] [phone] Jaspreet Kinsey MD [facility] [place] [address] 10/28/2023 9:00 AM EDT Office Visit Gastroenterology at [place] [phone] 10/29/2023 10:00 AM EDT Clinical [place] [address] 10/29/2023 10:15 AM EDT Procedure visit [place] [address] 11/01/2023 5:00 PM EDT Office Visit Gastroenterology at [place] [phone] Selene Browning, PhD [facility] [place] [address] 11/22/2023 4:40 PM EDT Office Visit Cardiology at [address] [phone] Porsha Mcdaniels MD [facility] [place] [address] 12/13/2023 10:00 AM EDT Clinical Support [place] [phone] [facility] [place] [address] documented as of this encounter Procedures Procedure Name Priority Date/Time Associated Diagnosis Comments ECHOCARDIOGRAM TRANSTHORACIC Routine 12/30/2021 11:29 PM EDT documented in this encounter Results * Echocardiogram Transthoracic (12/30/2021 11:29 PM EDT) Anatomical Region Laterality Modality Cardiac Other 12/30/2021 11:2 9 PM EDT Narrative 01/05/2022 4:39 AM EDT ? Echocardiogram Report Name: MONIQUE ROQUEA ?Study Date: 12/30/2021 11:29 PM : 1970 Age: 51 yrs Gender: Female Interpreting Fellow: Ciro Lovell. Interpretation Summary Limited echocardiogram performed by commissioning editor fellow. 1. LV appears globally hypokinetic. Visually estimated LVEF 40%. 2. RV is not well visualized, but appears mildly reduced in global systolic function. Recommend comprehensive echo. Procedure Note Willy Gómez MD - 01/05/2022 Echocardiogram Report Name: LOIDA ROQUE Study Date: 12/30/2021 11:29PM : 1970 Age: 51 yrs Gender: Female Interpreting Fellow: Ciro Lovell. Interpretation Summary Limited echocardiogram performed by commissioning editor fellow. 1. LV appears globally hypokinetic. Visually estimated LVEF 40%. 2. RV is not well visualized, but appears mildly reduced in globalsystolic function. Recommend comprehensive echo. Unknown ECHO ORDERABLES documented in this encounter Visit Diagnoses Diagnosis SVT (supraventricular tachycardia) Other specified cardiac dysrhythmias documented in this encounter Care Teams Nuclear Control Operator Relationship Specialty Start Date End Date Polo Pearce PA [address] [place] [address] PCP - General Internal Medicine 06/09/21 documented as of this encounter
--- OUTSIDE RECORDS SUMMARY | 2023-09-20 14:38 | XMS_ITS | Encounter Summary ---
[place] [address] Care Team Providers Care Web Site Developer Name Role Phone Polo Pearce Primary Care Provider [phone] Encounter Details Date Type Department Care Team (Late st Contact Info) Description 03/10/2022 Telephone Cardiology at [address] [phone] Maegan Mike APRN [facility] [place] [address] Social History Tobacco Use Types Packs/Day Years [...] encounter Miscellaneous Notes * Telephone Encounter - Maegan Mike APRN - 03/10/2022 3:42 PM EST Images from the original note were not included. 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 She has the above-mentioned history. 03/07/2022 she presented with respiratory symptoms of cough, cold and complaints of her chest hurting. She ruled out for viral panel. Found to have elevated troponin at 510, 548, 511. She refused admission and left AGAINST MEDICAL ADVICE. On March 09/2023 she presented with hemorrhagic cystitis with lower abdominal pain. She denied chest pain at that time was treated andreleased from the ER. Today on 03/10/2022 she comes in with lower abdominal pain that when it gets bad spikes up to her chest. Relieved with a single sl nitroglycerin. Troponins today are 615 down to 478. (Of note the patient has always had a positive high-sensitivity troponin since the assay was adjusted in June 2021. Her lowest reading has been 370 since that time but all have been positive above the upper limit of normal at 60.) ST depressions noted inferior and lateral which are similar toher ECG changes noted in 2019 when she had a normal cardiac catheterization. Calling for discussionabout this patients cardiac history. 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 Dilated loop of bowel will be further evaluated with an oral contrast CT scan that is currently pending Past cardiac studies: EKG: HR [address] sinus [address] with diffuse ST/T wave abnormalities Echo: 12/2021 Interpretation Summary -Left ventricle is of normal size. Wall thickness is mildly increased. There is no ventricular septal defect. Left ventricular systolic function is normal. The left ventricular ejection fraction is 60% by Reyes's biplane. There are no segmental wall motion abnormalities. -The right ventricle is of normal size. Right ventricular systolic function is normal. -The LA is severely dilated -No significant valvular regurgitation noted on this study. -There is evidence of elevated left sided pressures -No significant change compared to the prior study from 06/09/21 Stress: Cath: Normal coronaries in 2019 OSH Interventions: CT scan of her abdomen Sublingual nitroglycerin Plan: Patient's chest pain seems to be referred after abdominal pain on presentation today. Her chronically elevated troponins are difficult to interpret but she had normal coronary arteries in 2019 and similar ECG changes at that time. She does not describe a typical anginal pattern for her symptoms at this time. Possible NSTEMI type II in the setting of her cystitis and upper respiratory symptoms. She has SVT ablation planned for March 23, 2022--we will make Dr. Tovar aware of her recent ED visits Above recommendations were based on my discussion with Otis Rubi APRN; I have not personally interviewed or examined this patient. Advised to call the transfer center back with any changes in the patient condition. Maegan Mike APRN Pager [phone] 03/10/2022 documented in this encounter Plan of Treatment Upcoming Encounters Date Type Department Care Team (Late st Contact Info) Description 10/08/2023 8:30 AM EDT Tech Visit Vascular Lab at [place] [phone] Jose Cook 10/08/2023 9:30 AM EDT Office Visit Vascular Surgery at [place] [phone] MD [facility] [place] [address] 10/21/2023 10:30 AM EDT Appointment Nuclear Medicine at [place] [phone] Mary Reyes MONOGRAM AND LETTER PASTER [facility] [place] [address] 10/21/2023 11:30 AM EDT Appointment Nuclear Medicine at [place] [phone] Mary Reyes [employer] AND LETTER PASTER [facility] [place] [address] 10/21/2023 12:30 PM EDT Appointment [place] [address] Mary Reyes, [facility] [place] [address] 10/21/2023 1:30 PM EDT Appointment [place] [address] Mary Reyes, [facility] [place] [address] 10/21/2023 2:30 PM EDT Appointment [place] [address] Mary Reyes, [facility] [place] [address] 10/26/2023 4:00 PM EDT Office Visit Cardiology at [address] [phone] Jaspreet Kinsey MD [facility] [place] [address] 10/28/2023 9:00 AM EDT Office Visit [place]ology [place] [address] 10/29/2023 10:00 AM EDT Clinical Support [place] [address] 10/29/2023 10:15 AM EDT Procedure visit Gastro[place] [address] 11/01/2023 5:00 PM EDT Office Visit [place] [address] Selene Browning, PhD [facility] [place] [address] 11/22/2023 4:40 PM EDT Office Visit Cardiology at [address] [phone] Porsha Mcdaniels MD [facility] [place] [address] 12/13/2023 10:00 AM EDT Clinical Support [place] [phone] [facility] [place] [place] [address] documented as of this encounter Visit Diagnoses Not on filedocumented in this encounter Care Teams Web Site Developer Relationship Specialty Start Date End Date Polo Pearce PA Sb MOTT [address] [place] [id number] PCP - General Internal Medicine 06/09/21 documented as of this encounter
--- OUTSIDE RECORDS SUMMARY | 2023-09-20 14:38 | XMS_ITS | Encounter Summary ---
Author Organization [facility] Address [facility] [email or web address] [address] Care Team Providers Care String Laster Name Role Phone Polo Pearce Primary Care Provider [phone] Reason for Visit * Reason Comments Congestive Heart Failure HFpEF Palpitations SVT/AVNRT * Consultation (Routine) - Closed Specialty Diagnoses / Procedures Referred By Contac t Referred To Contact Cardiology Diagnoses HFp EF Procedures NEW PATIENT Mario Hallman MD [facility] [place] [address] Jaspreet Kinsey MD [facility] [place] [address] Referral ID Status Reason Start Date Expiration Date Visits Re quested Visits Authorized [id number] Closed 07/23/2021 07/23/2022 1 1 Encounter Details Date Type Department Care Team (Late st Contact Info) Description 07/23/2021 8:20 AM EDT Office Visit Cardiology at [address] [phone] Jaspreet Kinsey MD [facility] [place] [address] Heart failure with preserved ejection fraction, unspecified HF chronicity; SVT (supraventricular tachycardia) Social History Tobacco Use [...] Sign Reading Time Taken Comments Blood Pressure 106/52 07/23/2021 8:42 AM EDT Pulse 52 07/23/2021 8:42 AM EDT per e kg Temperature - - Respiratory Rate - - Oxygen Saturation - - Inhaled Oxygen Concentration - - Weight 97.1 kg (214 lb) 07/23/2021 8:42 AM EDT Height 162.6 cm (5' 4) 07/23/2021 8:42 AM EDT Body Mass Index 36.73 07/23/2021 8:42 AM EDT documented in this encounter Progress Notes * Jaspreet Kinsey MD - 07/23/2021 8:20 AM EDT Images from the original note were not included. CARDIOLOGY NEW OUTPATIENT PRIMARY CARE PROVIDER: JOCY Franco PROBLEM LIST: Patient Active Problem List Diagnosis ??? 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 Started on toprol ??? Obesity ??? Dyslipidemia ??? MARYLOU on CPAP ??? Restless leg syndrome ??? Insomnia ??? (HFpEF) heart failure with preserved ejection fraction 05/2021: subacute, presented to [facility] with RUQ pain, weight gain, and progressive dyspnea. Noted to caryr most fluid in abdomen ??? Asthma ??? Rhinitis, nonallergic, chronic MEDICATIONS: Current Outpatient Medications Medication Sig Dispense Refill ??? erenumab-aooe (Aimovig Autoinjector) 70 mg/mL Auto-Injector Inject subcutaneously. ??? metoprolol succinate XL (Toprol-XL) 25 mg Tablet Sustained Release 24 hr Take 1 tablet by mouthdaily. 30 tablet 2 ??? nitroGLYcerin (Nitrostat) 0.4 mg Tablet, Sublingual Place 1 tablet under the tongue every 5 minutes as needed for Chest pain. 30 tablet 1 ??? empagliflozin (Jardiance) 10 mg Tablet Take 1 tablet by mouth daily. 90 tablet 1 ??? aspirin 81 mg Tablet, Chewable Take 81 mg by mouth daily. 30 tablet 3 ??? atorvastatin (Lipitor) 80 mg Tablet Take 1 tablet by mouth every evening. 90 tablet 3 ??? furosemide (Lasix) 20 mg Tablet Take 1 tablet by mouth daily. 30 tablet 3 ??? lisinopriL (Zestril) 2.5 mg Tablet Take 1 tablet by mouth daily. 90 tablet 3 ??? rOPINIRole (Requip) 1 mg Tablet TAKE 1 TABLET BY MOUTH 2 3 HOURS BEFORE BEDTIME ??? traZODone (Desyrel) 50 mg Tablet TAKE 1 TO 2 TABLETS BY MOUTH AT BEDTIME ??? diclofenac (VOLTAREN) 1 % Gel APPLY TO SINGLE KNEE ANKLE OR FOOT SOLES TOES TOP OF FOOT ONCE DAILY ??? loratadine (Claritin) 10 mg Tablet Take 10 mg by mouth daily as needed. ??? fluticasone propionate (FLONASE) 50 mcg/actuation [place], Suspension 1 spray by Each Nare route daily. ??? gabapentin (Neurontin) 300 mg Capsule Take 300 mg by mouth 2 times daily. ??? topiramate (TOPAMAX) 50 mg Tablet Take 50 mg by mouth 2 times daily. 50 mg in the morning, 100 mg at bedtime ??? DULoxetine (CYMBALTA) 60 mg capsule Take 60 mg by mouth daily. ??? albuterol (PROVENTIL HFA;VENTOLIN HFA) 90 mcg/Actuation inhaler Inhale 2 puffs into the lungs every 4 hours as needed. Use with spacer No current facility-administered medications for this visit. Subjective: Patient ID: Indira Roque is a 51 y.o. female. HPI: 51 F presents to establish cardiovascular care for hfpef and svt She presented to [facility] end of May with subacute RUQ pain and worsening dyspnea (nyha ii). She was found to have subacute decompensation diastolic HF, and was diuresed with significant improvement ofsymptoms. She was started on jardiance, lasix 20. About a week later, she had an episode of SVT with + biomarkers. It aborted itself. She was started on toprol 25 at that time Since then, she has noted a significant reduction in palpitations; feels light ephemeral flutters now She notes that with all the medication changes, her exercise capacity is the best it has been. No issues with excellent activity, aside from nyha I dyspnea. No angina Objective: BP 106/52 (BP Location (NBP): Left arm, Patient Position: Sitting) Pulse 52 Comment: per ekg Ht162.6 cm (5' 4) Wt 97.1 kg (214 lb) BMI 36.73 kg/m?? Gen: pleasant female in NAD Cor: rrr, s1/s2 of nl character and amplitude, no m/r/g. Estimated RAP not elevated. Carotids without bruit. Pulm: CTAB. Normal diaphragmatic movement without use of accessory muscles Last 3 Lipids Recent Labs 06/07/21 1726 CHLPL 164 HDL 44 LDLCHOL 91 TRIG 144 EKG: nsr, nssttw TTE: 06/2021 1. Left ventricle is of normal size. [...] moderately dilated. 4. No significant valve disease. Assessment and Plan: (HFpEF) heart failure with preserved ejection fraction No failure by history nor exam. - Diuresis: Lasix 20 - Cardioprotection: - SGLT2i: jardiance SVT (supraventricular tachycardia) Having minimally symptomatic flutters. Reasonable to review options with EP. - continue toprol 25 - referral to EP already placed for discussion of svt ablation She has a PET stress test ordered already. Reasonable to continue with this to confirm/refute presence of microvascular disease. I think there are other causes of her presentation that have resolved RTC 6 months Jaspreet Kinsey MD Between 45-59 minutes were spent doing patient care, chart care/review (today), and care coordination. documented in this encounter Miscellaneous Notes * Assessment & Plan Note - Jaspreet Kinsey MD - 07/23/2021 10:24 AM EDT Associated Problem(s): SVT (supraventricular tachycardia) Having minimally symptomatic flutters. Reasonable to review options with EP. - continue toprol 25 - referral to EP already placed for discussion of svt ablation * Assessment & Plan Note - Jaspreet Kinsey MD - 07/23/2021 10:23 AM EDT Associated Problem(s): (HFpEF) heart failure with preserved ejection fraction No failure by history nor exam. - Diuresis: Lasix 20 - Cardioprotection: - SGLT2i: jardiance documented in this encounter Plan of Treatment Upcoming Encounters Date Type Department Care Team (Late st Contact Info) Description 10/08/2023 8:30 AM EDT Tech Visit [place] [phone] Jose Cook 10/08/2023 9:30 AM EDT Office [place] [phone] MD [facility] [place] [address] 10/21/2023 10:30 AM EDT Appointment [place] [phone] Mary Reyes [facility] [place] [address] 10/21/2023 11:30 AM EDT Appoint[place] [phone] Mary Reyes [facility] [place] [address] 10/21/2023 12:30 PM EDT Appoint[place] [address] Mary Reyes, [facility] [place] [address] 10/21/2023 1:30 PM EDT Appointment [place] [address] Mary Reyes, [facility] [place] [address] 10/21/2023 2:30 PM EDT Appoint[place] [address] Mary Reyes, [facility] [place] [address] 10/26/2023 4:00 PM EDT Office Visit Cardiology at [address] [phone] Jaspreet Kinsey MD [facility] [place] [address] 10/28/2023 9:00 AM EDT Office [place] [address] 10/29/2023 10:00 AM EDT Clinical [place] [address] 10/29/2023 10:15 AM EDT Procedure [place] [address] 11/01/2023 5:00 PM EDT Office [place] [address] Selene Browning, PhD [facility] [place] [address] 11/22/2023 4:40 PM EDT Office Visit Cardiology at [address] [phone] Porsha Mcdaniels MD [facility] [place] [address] 12/13/2023 10:00 AM EDT Clinical [place] [phone] [facility] [place] [address] documented as of this encounter Visit Diagnoses Diagnosis Heart failure with preserved ejection fraction, unspecified HF chronicity SVT (supraventricular tachycardia) Other specified cardiac dysrhythmias documented in this encounter Care Teams String Laster Relationship Specialty Start Date End Date Polo Pearce PA Sb M[address] [place] [address] PCP - General Internal Medicine 06/09/21 documented as of this encounter
--- OUTSIDE RECORDS SUMMARY | 2023-09-20 14:38 | XMS_ITS | Encounter Summary ---
Author Organization [facility] [place] [address] Care Team Providers Care Training And Development Specialist Name Role Phone Polo Pearce Primary Care Provider [phone] Encounter Details Date Type Department Care Team (Late st Contact Info) Description 12/30/2021 8:00 PM EDT Ancillary Procedure [place] [phone] Jaspreet Kinsey MD [facility] [place] [address] Social History Tobacco Use Types Packs/Day Years [...] AM EDT Tech Visit [place] [phone] Jose Cook 10/08/2023 9:30 AM EDT Office Visit [place] [phone] MD [facility] [place] [address] 10/21/2023 10:30 AM EDT Appointment Nuclear Medicine at [address] Mary Reyes, [facility] [place] [address] 10/21/2023 11:30 AM EDT Appointment Nuclear Medicine at [place] [phone] Mary Reyes [facility] [place] [address] 10/21/2023 12:30 PM EDT Appointment [place] [phone] Mary Reyes [facility] [place] [address] 10/21/2023 1:30 PM EDT Appointment [place] [phone] Mary Reyes [facility] [place] [address] 10/21/2023 2:30 PM EDT Appointment [place] [phone] Mary Reyes [facility] [place] [address] 10/26/2023 4:00 PM EDT Office Visit Cardiology at [address] [phone] Jaspreet Kinsey MD [facility] [place] [address] 10/28/2023 9:00 AM EDT Office Visit Gastroenterology at [place] [phone] 10/29/2023 10:00 AM EDT Clinical Support [place] [address] 10/29/2023 10:15 AM EDT Procedure [place] [address] 11/01/2023 5:00 PM EDT Office Visit Gastroenterology at [place] [phone] Selene Browning, PhD [facility] [place] [address] 11/22/2023 4:40 PM EDT Office Visit Cardiology at [address] [phone] Porsha Mcdaniels MD [facility] [place] [address] 12/13/2023 10:00 AM EDT Clinical Support [place] [phone] Lucero Romero, [facility] [place] [address] documented as of this encounter Procedures Procedure Name Priority Date/Time Associated Diagnosis Comments FILM LIBRARY STORAGE ONLY CT CHEST Routine 12/30/2021 7:55 PM EDT documented in this encounter Results * Film Library- Storage Only CT Chest (12/30/2021 7:55 PM EDT) Narrative [facility] - 12/30/2021 7:55 PM EDT This exam is auto-finalizing. It's purpose is for storage only. Jaspreet Kinsey MD IMG FILM LIBRARY ORD ERABLES [place], [place] documented in this encounter Visit Diagnoses Not on filedocumented in this encounter Care Teams Training And Development Specialist Relationship Specialty Start Date End Date Polo Pearce PA [address] [place] [address] PCP - General Internal Medicine 06/09/21 documented as of this encounter
--- OUTSIDE RECORDS SUMMARY | 2023-09-20 14:38 | XMS_ITS | Encounter Summary ---
Author Organization [facility] [place] [address] Care Team Providers Care Mud Logger Name Role Phone Polo Pearce Primary Care Provider [phone] Encounter Details Date Type Department Care Team (Late st Contact Info) Description 12/30/2021 Telephone Cardiology at [address] [phone] Ciro Lovell MD [facility] [place] [address] Social History Tobacco Use Types Packs/Day Years [...] Notes * Telephone Encounter - Ciro Lovell - 12/30/2021 6:10 PM EDT Telephone Note 51 year old female with mild PAH ([facility] 06/2021) without e/o parenchymal lung disease or L-sided dysfunction, ? Prior NC, C2 obesity, spastic lung disease and MARYLOU/HS on pap. 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 This was accompanied by pounding sensations in her lateral neck which, per provider, she's felt before. There was associated SOB and light headedness. 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 EMS was called and brought her to the ED . Interestingly, she was discharged from the same hospital this AM following a mechanical fall with subsequent ankle fracture. In the ED, her vitals were notable for BP 86/55 initially --> repeat SBP 90s, HR 50s able to tolerate RA. EKG showed anterolateral ST-T abnormality, initial hs Tn was 500s. She was without chest pain. At the time of my discussion with provider, she was going to CT scan her chest. Pertinent prior studies below TTE 06/2021 Interpretation Summary 1. Left ventricle is of normal size. [...] moderately dilated. 4. No significant valve disease. No significant change from prior in 08/2019. CT chest 04/2020 - no read, but focal calcification of proximal LCx; no blatant lung disease present. Mosaic attenuation diffusely, maybe airway trapping or fluid PFTs 07/2020 mild restriction, normal diffusion; no volumes done [facility] 2019 clean coronaries RHC 06/2021 Hemodynamics: Right Heart Pressures Resting: Syst Diast EDP a v m RA 8 5 4 RV 40 7 PA 38 15 24 PCW 15 13 11 Hemodynamic Profile: Profile 1 CO 3.14 CI 1.57 TPR 611 PVR 331 Oximetry: Location %Sat Location %Sat Superior Vena Cava 55.0 Main Pulmonary Artery 56.0 Pulmonary Capillary 89.0 peripheral pulse ox 97.0 Wedge Recommendations She was bradycardic when she got to ED and palpitations resolved prior to EMS. It was unclear whether the chest pain came before or after the palpitations/neck sensation; however, the sensation of neck pounding strongly suggests SVT, usually AVNRT. Her symptoms, subsequently, may be secondary to that SVT with demand ischemia accounting for the trop, the sl ntg contributing to her SBPs (on review of her vitals back to June, her SBP is generally mid 90s - 115). She had a clean cath in [address] chest 2020 shows focal calcification vs stent in the LCx. However, given the Tn and the symptoms, will treat as ACS for now - I asked that the provider there startheparin, load with asa, and load with plavix 600. She will be transferred here for evaluation. Ciro Lovell documented in this encounter Plan of Treatment Upcoming Encounters Date Type Department Care Team (Late st Contact Info) Description 10/08/2023 8:30 AM EDT Tech [place] [phone] Jose Cook 10/08/2023 9:30 AM EDT Office [place] [phone] MD [facility] [place] [address] 10/21/2023 10:30 AM EDT Appointment [place] [phone] Mary Reyes APRN [facility] [place] [address] 10/21/2023 11:30 AM EDT Appointment [place] [phone] Mary Reyes APRN [facility] [place] [address] 10/21/2023 12:30 PM EDT Appointment [place] [phone] Mary Reyes, [facility] [place] [address] 10/21/2023 1:30 PM EDT Appointment [place] [address] Mary Reyes [facility] [place] [address] 10/21/2023 2:30 PM EDT Appointment [place] [phone] Mary Reyes, [facility] [place] [address] 10/26/2023 4:00 PM EDT Office Visit Cardiology at [address] [phone] Jaspreet Kinsey MD [facility] [place] [address] 10/28/2023 9:00 AM EDT Office [place] [address] 10/29/2023 10:00 AM EDT Clinical Support [place] [address] 10/29/2023 10:15 AM EDT Procedure [place] [address] 11/01/2023 5:00 PM EDT Office [place] [phone] Selene Browning, PhD [facility] [place] [address] 11/22/2023 4:40 PM EDT Office Visit Cardiology at [address] [phone] Porsha Mcdaniels MD [facility] [place] [address] 12/13/2023 10:00 AM EDT Clinical [place] [phone] [facility] [place] [address] documented as of this encounter Visit Diagnoses Not on filedocumented in this encounter Care Teams Mud Logger Relationship Specialty Start Date End Date Polo Pearce PA Sb MOTT [address] [place] [id number] PCP - General Internal Medicine 06/09/21 documented as of this encounter
--- OUTSIDE RECORDS SUMMARY | 2023-09-20 14:38 | XMS_ITS | Encounter Summary ---
Author Organization [facility] Address [facility] [place] [address] Care Team Providers Care Children Librarian Name Role Phone Polo Pearce Primary Care Provider [phone] Encounter Details Date Type Department Care Team (Late st Contact Info) Description 06/13/2021 Telephone Cardiology at [address] [place] [address] [place] [facility] [address] Social History Tobacco Use Types Packs/Day Years [...] encounter Miscellaneous Notes * Telephone Encounter - Chayo Dominguez PA - 06/13/2021 8:57 AM EDT Images from the original note were not included. 06/13/2021 Indira Roque Initial Contact Date: 06/13/2021 Initial contact time: 8:57 AM Referring Provider: Dr. Gale Trinh Patient Location: [facility] See Dr. Mejia's telephone encounter note for presenting details. Patient continues to have an unsettling abdomen with ?chest pain (back pain radiating to anteriorchest that is reproducible on palpation of back). Provider plans to trial NTG. However, is more concerned with her epigastric discomfort representing angina. As noted by Dr. Mejia, patient found to be in probable SVT by EMS. There has been no recurrence of arrhythmia and she is tolerating low dose beta tiffanie. Dr. Mejia recommended stress test and trending of troponin/EKGs. EKG unchanged. Troponin-I HS trend: 629 > 946 > 1702 > 1924 (ULN 50) She remains on aspirin, heparin, statin, beta tiffanie No cardiology consult available and no stress test available. Provider also does not feel comfortable stressing this patient with ongoing symptoms and up trending troponin. Provider notes no evidence of volume overload and patient appears euvolemic. Assessment & Plan: Indira Roque is a 51 year old female with a history of HTN, HLD, ?microvascular disease, SVT,HFpEF, asthma, depression and MARYLOU on CPAP who presented to the OSH with palpitations, epigastric and chest/back discomfort. Of note, she was recently admitted to [facility] for evaluation of angina and discharged 06/08/21. At that time she initially presented to [facility] where she was noted to have a troponin I of 406 which was flat at 411 on repeat and an elevated BNP. EKG showed nonspecific ST changes in the inferolateral leads. She was transferred to [facility] for further evaluation where she underwent a TTE which showed preserved ejection fraction and had negative troponins here. EKGs were again nondiagnostic for ischemia. On review of the chart she had a left heart catheterization done in 2019 where she was noted to have clean coronary vessels with possible slow flow with possible microvascular disease. She was started on Lasix and Jardiance given evidence of diastolic heart failure with volume overload and had a Zio patch placed. She was found to be in possible SVT by EMS, however converted to NSR prior to arrival to the ER nathaniel in NSR with stable vital signs at this time. She continues to have epigastric discomfort and back/chest pain. Her back pain seems to be radiating to her chest and is reproducible on exam. However, her epigastric pain has persisted and may represent angina. No other underlying abdominal process noted by provider. Troponin-I HS has up-trended from 629 to 1925 (prior at their facility was 400). EKG without acute changes. Initial presentation thought to be symptoms in setting of probable SVT with elevated troponin due to the tachycardia. However, symptoms persist despite NSR and she has an up trending troponin trend. OSH does not have cardiology consult available and are unable to accommodate a stress test. Patient accepted for transfer for further ischemic evaluation. She remains on ASA, heparin, beta tiffanie and statin. No P2Y12i at this time. Patient is agreeable to transfer and understands if a stress test is recommended this will not be done until Wednesday. The above recommendations were based on my discussion with Dr. Trinh; I have not personally interviewed or examined this patient; I have not personally reviewed EKGs. I encouraged Dr. Trinh to contact us if there is any change in symptoms, decision-making, or further need for guidance in management. Chayo Chappell PA-C Cardiovascular Medicine Pager [phone] 06/13/2021 documented in this encounter Plan of Treatment Upcoming Encounters Date Type Department Care Team (Late st Contact Info) Description 10/08/2023 8:30 AM EDT Tech [place] [phone] Jose Cook 10/08/2023 9:30 AM EDT Office [place] [phone] MD [facility] [place] [address] 10/21/2023 10:30 AM EDT Appointment [place] [phone] Mary Reyes APRN [facility] [place] [address] 10/21/2023 11:30 AM EDT Appointment [place] [address] Mary Reyes APRN [facility] [place] [address] 10/21/2023 12:30 PM EDT Appointment [place] [address] Mary Reyes [facility] [place] [address] 10/21/2023 1:30 PM EDT Appointment [place] [address] Mary Reyes, [facility] [place] [address] 10/21/2023 2:30 PM EDT Appointment [place] [address] Mary Reyes [facility] [place] [address] 10/26/2023 4:00 PM EDT Office Visit Cardiology at [address] [phone] Jaspreet Kinsey MD [facility] [place] [address] 10/28/2023 9:00 AM EDT Office [place] [address] 10/29/2023 10:00 AM EDT Clinical [place] [address] 10/29/2023 10:15 AM EDT Procedure [place] [address] 11/01/2023 5:00 PM EDT Office Visit Gastroenterology at [place] [phone] Selene Browning, PhD [facility] [place] [address] 11/22/2023 4:40 PM EDT Office Visit Cardiology at [address] Porsha Mcdaniels MD [facility] [place] [address] 12/13/2023 10:00 AM EDT Clinical Support Gastroenterology at [place] [phone] Lucero Romero, [facility] [place] [address] documented as of this encounter Visit Diagnoses Not on filedocumented in this encounter Care Teams Children Librarian Relationship Specialty Start Date End Date Polo Pearce PA Sb [address] [place] [address] PCP - General Internal Medicine 06/09/21 documented as of this encounter
--- OUTSIDE RECORDS SUMMARY | 2023-09-20 14:38 | XMS_ITS | Encounter Summary ---
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 Name Role Phone Polo Pearce Primary Care Provider [phone] Reason for Visit * Auth/Cert Specialty Diagnoses / Procedures Referred By Jayant harris Referred To Contact Diagnoses NSTEMI (non-ST elevated myocardial infarction) Chest Pain Procedures EMERGENCY IPI Sobeida Jimenez MD [facility] [place] [address] [facility] Referral ID Status Reason Start Date Expiration Date Visits Re quested Visits Authorized [id number] 1 1 Encounter Details Date Type Department Care Team (Latest Contact Info) Description 12/30/2021 10:41 PM EDT - 01/01/2022 2:24 PM EDT Hospital Encounter [place] [address] Sobeida Jimenez MD [facility] [address] [place], [place] [id number] SVT (supraventricular tachycardia); Non-ST elevation ME (NSTEMI); NSTEMI (non-ST elevated myocardial infarction); Acute on chronic heart failure with preserved ejection fraction Discharge Disposition: Home Social History Tobacco Use [...] Sign Reading Time Taken Comments Blood Pressure 121/61 01/01/2022 11:38 AM EDT Pulse 56 01/01/2022 11:38 AM EDT Temperature 36.6 ??C (97.9 ??F) 01/01/2022 11:38 AM E DT Respiratory Rate 16 01/01/2022 7:39 AM EDT Oxygen Saturation 97% 01/01/2022 11:38 AM EDT Inhaled Oxygen Concentration - - Weight 98 kg (216 lb 0.8 oz) 01/01/2022 6:00 AM EDT Height 162.6 cm (5' 4) 12/30/2021 10:00 PM EDT Body Mass Index 37.09 12/30/2021 10:00 PM EDT documented in this encounter Discharge Summaries * Deven Guerra Jr., MD - 01/01/2022 2:22 PM EDT Discharge Summary Patient Name: Loida Madrigal Patient Age: 51 y.o. Language: Mauritian Race: White Ethnicity: Not nor Admit date: 12/30/2021 Discharge date and time: 01/01/2022 Attending Physician: Sobeida Jimenez MD Discharge Physician: Sobeida Jimenez MD ID: Loida Madrigal is a 51 y.o. female w/ PMH of AVNRT, HFpEF, asthma, MARYLOU, obesity, mild PAH([facility] 06/2021) who presents today in transfer for evaluation of chest pain. Follow-up Recommendations for Providers: 1) Fluid status - Patient was diuresed effectively with lasix 20 mg IV while inpatient and down 2.2kg for admission. Discharge weight was 98 kg. 2) Ankle Injury- Patient reported hurting her ankle prior to her admission. X- rays were obtained while inpatient, pending official read. Per patient, she has orthopedic follow up. PCP Contact Information: JOCY Franco [address] / [facility] [id number] Pending Studies and Lab Data: Official Ankle X-Ray Read Discharge Diagnoses (Hospital Problems) and Secondary Diagnoses (Chronic Problems): Active Hospital Problems Diagnosis ??? NSTEMI (non-ST elevated myocardial infarction) Resolved Hospital Problems No resolved problems to display. Active Non-Hospital Problems Diagnosis ??? 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 Started on toprol ??? Obesity ??? Dyslipidemia ??? Obstructive sleep apnea syndrome ??? Insomnia ??? (HFpEF) heart failure with preserved ejection fraction 05/2021: subacute, presented to [facility] with RUQ pain, weight gain, and progressive dyspnea. Noted to caryr most fluid in abdomen ??? Restless legs ??? Non-ST elevation ME (NSTEMI) ??? Asthma ??? Rhinitis, nonallergic, chronic History of Presentation (per 12/30/2021 Admission H&P): Pt reports earlier at work today when she was walking around cleaning she started having palpitations with pounding sensation in her left lateral neck with associated nausea, diaphoresis and lightheadedness. She subsequently later developed chest pain described like a heaviness and pressure that was left sided and substernal with some associated shortness of breathe. 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 EMS was called and brought her to the ED .Reports duration from intial symptom onset until chest pain resolution was ~45 mins. ?? Over the last month pt also report diminished exercise tolerance; will have shortness of breathe onexertion and chest pain that improves after resting for 2-3 mins. Was previously able to go up the stair without issues.She has also had worsening abdominal distention/ discomfort and orthopnea. Pt thinks her dry weight is 211, and reports over last month has weight increased to 220 despite taking lasix as prescribed. In the ED, her vitals were notable for BP 86/55 initially with repeat improved to 90s (baseline 90-110's), HR 50s, sating well on room air. EKG showed anterolateral ST-T abnormality, initial hs Tn was 500s. No chest pain since ~3pm. CT PE negative, ground glass opacities consistent with edema or ate lectasis. Started on heparin drip, ASA 325 and plavix 600 with plan to transfer to [facility] for furthermanagement. Pertinent prior studies below: ?? TTE 06/2021 Interpretation Summary 1. Left ventricle [...] No significant change from prior in 08/2019. ?? CT chest 04/2020??- no read, but focal calcification of proximal LCx; no blatant lung disease present. Mosaic attenuation diffusely, maybe airway trapping or fluid. ?? PFTs 07/2020 mild restriction, normal diffusion; no volumes done ?? LHC 2019 clean coronaries ?? RHC 06/2021?? Hemodynamics: ?Right Heart Pressures ?Resting: ?Syst Diast ?EDP ?a ?v ?m ?RA ?8 ?5 ?4 ?RV 40 ?7 ?PA 38 ?15 ?24 ?PCW ?15 ?13 ?11 ?Hemodynamic Profile: ?Prof ile 1 ?CO ?3.14 ?CI ?1.57 ?TPR ?611 ?PVR ?331 ? Hospital Course: Loida Jude was admitted to the Cardiology service on 12/30/2021. The following issues were addressed and she was discharged on 01/01/2022. #NSTEMI, Type II Patient initially presented to the [facility] ED on 12/30 with chest pain. Initial EKG demonstrated anterolateral ST-T abnormality. They were loaded with ASA, plavix and were temporarily on a heparin GTT. Labs notable for: TroponinT peak 500s, HbA1c??5.7, TSH??7.36??, Lipids: TC 122, HDL 35, Chol/HDL 3.5, Triglycerides 111, LDL 65. ?? #AVNRT The patient's home beta tiffanie was held 2/2 to her bradycardia. EP team was consulted who decided against ablation while inpatient and planned to follow up in the outpatient setting instead. She wasresumed on her home metoprolol on day of discharge. #acute on chronic HFpEF Patient was diuresed effectively with lasix 20 mg IV while inpatient and down 2.2 kg for admission.Discharge weight was 98 kg. TTE on 12/30 revealed biatrial enlargement, particularly left atrial enlargement, LVH, severely elevated LA pressure (E/A >2, and severely decreased e' 5 cm/sec) (full report included below). She was continued on her home empagliflozin. Her home lisinopril and aspirinwere discontinued. #Ankle Injury Patient reported rolling her ankle and injuring it prior to her admission. The site was monitored for any swelling and on day of discharge, she had an X-ray completed that revealed only soft tissue swelling without fracture. Procedures: Operations: * No surgery found * Name: LOIDA MADRIGAL Study Date: 12/31/2021 06:52 AMBP: 109/62 mmHg Patient Location: [facility]^C450^B : 1970 Height: 163 cm Account: [id number] Age: 51 yrs Weight: 100 kg Gender: Female BSA: 2.0 m2 Ordering Physician: SOBEIDA JIMENEZ Referring Physician: KARIN ESPINOSA Performed By: HAIM Harris Reason For Study: Acute on chronic heart failure with preserved ejection fraction Exam Location: [facility]. Interpretation Summary -Left ventricle is of normal size. Wall thickness is mildly increased. There is no ventricular septal defect. Left ventricular systolic function is normal. The left ventricular ejection fraction is 60% by Reyes's biplane. There are no segmental wall motion abnormalities. -The right ventricle is of normal size. Right ventricular systolic function is normal. -The LA is severly dilated -No significant valvular regurgitation noted on this study. -There is evidence of elevated left sided pressures -No significant change compared to the prior study from 06/09/21 ?? Procedure Complete-[id number]. Satisfactory quality. There is sinus bradycardia. ?? Left Ventricle Left ventricle is of normal size. Wall thickness is mildly increased. There is no ventricular septal defect. Left ventricular systolic function is normal. The left ventricular ejection fraction is 60% by Reyes's biplane. There are no segmental wall motion abnormalities. ?? Right Ventricle The right ventricle is of normal size. Right ventricular systolic function is normal. ?? Left Atrium The left atrium is severely dilated. There is no evidence for a patent foramen ovale. ?? Right Atrium The right atrium is normal. ?? Aortic Valve The aortic valve is probably trileaflet. The aortic valve is mildly thickened. There is no aortic stenosis. There is no aortic regurgitation. ?? Mitral Valve The mitral valve is structurally normal. There is no mitral stenosis. There is mild mitral regurgitation. ?? Tricuspid Valve The tricuspid valve is structurally normal. There is no tricuspid stenosis. There is trace tricuspid regurgitation. ?? Pulmonic Valve The pulmonic valve is not well visualized. There is no valvular pulmonic stenosis. There is no pulmonic valve regurgitation. ?? Great Arteries The aortic root is of normal size. No abnormalities are identified. Ascending aorta is normal in size. ?? Venous Inferior vena cava is normal in size. Inferior vena cava collapse greater than 50% with respiration. ?? Pericardium/Pleural There is a trivial pericardial effusion. The pericardial effusion is circumferential. A pericardial fat pad is present. Epicardial fat is present. ?? Hemodynamics Pulmonary artery hypertension could not be assessed due to inadequate tricuspid regurgitation jet. Left ventricular filling pressure is increased. Ejection Fraction 2D Measurements Volumes LV Biplane EF: 60.1 % IVSd: 1.2 cm LA Volume Index: LVIDd: 4.6 cm LVIDs: 3.2 cm 52.6 ml/m2 LVPWd: 0.91 cm EDV Biplane: 62.5 ml EDV Biplane Index: 30.6 LV mass(C)d: 172.4 grams ESV Biplane: 25.0 ml LV mass(C)dI: 84.4 grams/m2 ESV Biplane Index: 12.2 Ao root diam: 2.4 cm SV(LVOT): 47.5 ml Ao root diam index: 1.2 LV Stroke Volume: 47.5 ml asc Aorta Diam: 3.2 cm LVOT diam: 1.7 cm SI(LVOT): 23.3 ml/m2 TAPSE_phl: 1.7 cm ?? Doppler LV V1 VTI: 21.6 cm LVOT max Velocity: 101.1 cm/sec Lat Peak E' Ilir: 4.3 cm/sec Med Peak E' Ilir: 3.9 cm/sec ?? I WMSI = 1.00 % Normal = 100 ?? Segments Size X - Cannot 1 - Normal 2 - 3 - Akinetic 4 - 1-2 small Interpret Hypokinetic Dyskinetic 3-5 moderate 5 - 6-14 large Aneurysmal 15-16 diffuse ?? Important Studies and Lab Data: Recent Labs 01/01/225 12/31/21 0020 WBC 6.2 7.9 HGB 13.9 13.3 HCT 41.3 39.1 PLATELET 204 209 Recent Labs 01/01/22 0856 01/01/225 12/31/21 0020 NA -- 137 140 K -- 4.0 4.1 CL -- 109* 110* CO2 -- 15* 17* BUN -- * 22* CREATININE -- 1.04 0.95 MAGNESIUM 0.96 -- 0.87 PHOS -- -- 3.5 No results for input(s): BILITOT, BILIDIR, AST, ALT, ALKPHOS in the last 168 hours. Recent Labs 12/31/21 002 INR 1.1 PTT 90* Recent Labs 12/31/21 002 HA1C 5.7* Recent Labs 12/31/21 002 TSH 7.36* Recent Labs 12/31/21 0020 HDL 35 LDLCHOL 65 CHOLHDL 3.5 TRIG 111 CHLPL 122 Microbiology Results (Last 30 days) No results found for the last 720 hours. Imaging: Results for orders placed or performed during the hospital encounter of 12/30/21 XR Ankle Min 3 views Right (Generic) (Exam End: 01/01/2022 11:13 AM) Impression Soft tissue swelling over the lateral malleolus and small tibiotalar effusion are present. No underlying fracture is seen. I have personally reviewed the image(s) and the resident's interpretation and agree with the findings, Olive Barrera MD at 01/01/2022 1:56 PM Thank you for letting us participate in the care of this patient. If you are a health care provider and have any questions regarding this report, please contact the number below. For patients who have questions please contact the health career services director that requested 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 Discharge Conditions/Prognosis: Upon discharge the patientis hemodynamically stable, afebrile, fully ambulatory without requiring supplemental oxygen, holding down food/drink, and pain free. Vital Signs: Last value Range last 24 hrs Temperature Temp: 36.6 ??C (97.9 ??F) Temp: [36.6 ??C (97.9 ??F)-36.7 ??C (98.1 ??F)] Heart Rate Heart Rate: 56 Heart Rate: [49-56] Blood Pressure BP: 121/61 BP: (116-125)/(61-70) Respiratory Rate Resp: 16 Resp: [16-18] SpO2 SpO2: 97 % SpO2: [95 %-98 %] Exam: Gen: in bed in NAD; alert, oriented, conversant HEENT: anicteric, EOMI intact, CV: RRR, no murmurs/rubs/gallops Resp: CTAB, no crackles/wheezes/ronchi, normal work of breathing Abd: normal bowel sounds, soft, non-tender to palpation, no rebound or guarding Ext: 2+ distal pulses, no pedal edema Neuro: no focal deficits noted, moves all extremities spontaneously Skin: no rashes, lesions, or ulcerations noted Discharge to: home without services Discharge Medications: Your Medications Continued medications with new dosing Dose Details metoprolol succinate XL 25 mg Tablet sr Commonly known as: Toprol-XL Take 1 tablet by mouth daily. What changed: ?? how much to take ?? additional instructions 25 mg Quantity: 30 tablet Refills: 2 Continued medications, unchanged Dose Details albuteroL 90 mcg/actuation Hfaa Inhale 2 puffs into the lungs every 4 hours as needed. Use with spacer 2 puff Refills: 0 atorvastatin 80 mg Tab Commonly known as: Lipitor Take 1 tablet by mouth every evening. 80 mg Quantity: 90 tablet Refills: 3 diclofenac 1 % Gel Commonly known as: Voltaren APPLY TO SINGLE KNEE ANKLE OR FOOT SOLES TOES TOP OF FOOT ONCE DAILY Refills: [address] 60 mg Cpdr Commonly known as: Cymbalta Take 60 mg by mouth daily. 60 mg Refills: 0 empagliflozin 10 mg Tab Commonly known as: Jardiance Take 1 tablet by mouth daily. 10 mg Quantity: 90 tablet Refills: 1 erenumab-aooe 70 mg/mL Atin Commonly known as: Aimovig Autoinjector Inject subcutaneously every 30 days. Refills: 0 fluticasone propionate 50 mcg/actuation Spsn Commonly known as: Flonase 1 spray by Each Nare route daily. 1 spray Refills: 0 furosemide 20 mg Tab Commonly known as: Lasix Take 1 tablet by mouth daily. 20 mg Quantity: 30 tablet Refills: 3 gabapentin 300 mg Cap Commonly known as: Neurontin Take 300 mg by mouth 2 times daily. 300 mg Refills: 0 loratadine 10 mg Tab Commonly known as: Claritin Take 10 mg by mouth daily as needed. 10 mg Refills: 0 nitroGLYcerin 0.4 mg Subl Commonly known as: Nitrostat Place 1 tablet under the tongue every 5 minutes as needed for Chest pain. 0.4 mg Quantity: 30 tablet Refills: 1 rOPINIRole 1 mg Tab Commonly known as: Requip 2 times daily. Refills: 0 topiramate 50 mg Tab Commonly known as: TOPAMAX Take 50 mg by mouth See Admin Instructions. 50 mg Refills: 0 traZODone 50 mg Tab Commonly known as: Desyrel TAKE 1 TO 2 TABLETS BY MOUTH AT BEDTIME Refills: 0 STOPPED Medications aspirin 81 mg Chew lisinopriL 2.5 mg Tab Commonly known as: Zestril Updated Allergies/ADRs: Allergies Allergen Reactions ??? Clobetasol Rash Other reaction(s): Skin Rash Instructions Given to Patient at Discharge: Patient Instructions Patient Instructions on Discharge to Home Why you were hospitalized: You were hospitalized because you had a heart failure exacerbation. While you were here, we diuresed you to remove the excess fluid and observed you for any additional symptoms. 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 Stop These Medications: - Aspirin 81 mg - Lisinopril 2.5 mg When to call your doctor: - Chest pain, worsening shortness of breath, fatigue with usual exertion, or new rest/night time symptoms. - Weigh yourself daily and record; if you note an increase of more than 2-3 pounds in 2 days, or 5 pounds over a week, contact your health care provider. - If you become short of breath, cannot lie down to sleep, or have swelling in your legs/ankles or abdomen, contact your health care provider. - Call if you have reduced urination during the day or increased urination at night. If you have non-emergent questions between now and the time of your follow up appointments: During 8am-5pm Wednesday through Wednesday call [phone] to speak with a nurse in the cardiology clinic All other times call [phone] and ask to speak to the fusion juncture grinder blood donor recruiter. Follow up Appointments: Future Appointments Date Time Provider Department Center 01/21/2022 9:00 AM Jaspreet Knisey MD [facility] 01/12/2022, Appointment with Mr. Polo Pearce Quality Control Clerk: Dr. Jaspreet Kinsey PCP: JOCY Franco at [phone] Your Inpatient Doctor(s) at [facility]: Sobeida Jimenez MD - Attending physician Dr. Paris Guerra MD - Resident Physician Dr. Yoselin Gómez DO, Resident Physician Dr. Edwin Mcghee MD, Fellow Physician Your Primary Care Provider: JOCY Franco DR [facility] / [facility] [id number] For questions regarding issues relating to your hospitalization on the Hospital Medicine Service, please contact your inpatient physician through the [facility] Dental Prosthetist [phone]. Issues after hours and on weekends will be handled by the Hospitalist staff on-call. General Instructions None Future Appointments and Orders Future Appointments and Orders Future Appointments Provider Department Dept Phone 01/21/2022 9:00 AM Jaspreet Kinsey MD Cardiology at [place] Arrive at: [facility] [address] [phone] Inpatient Provider Contact Information: Deven Guerra Jr, MD Internal Medicine, PGY-3 [facility], pager [phone] Discharge References/Attachments: Discharge References/Attachments None documented in this encounter Discharge Instructions * Patient Instructions* Yoselin Gómez DO - 01/01/2022 10:29 AM EDT Patient Instructions on Discharge to Home Why you were hospitalized: You were hospitalized because you had a heart failure exacerbation. While you were here, we diuresed you to remove the excess fluid and observed you for any additional symptoms. 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 Stop These Medications: - Aspirin 81 mg - Lisinopril 2.5 mg When to call your doctor: - Chest pain, worsening shortness of breath, fatigue with usual exertion, or new rest/night time symptoms. - Weigh yourself daily and record; if you note an increase of more than 2-3 pounds in 2 days, or 5 pounds over a week, contact your health care provider. - If you become short of breath, cannot lie down to sleep, or have swelling in your legs/ankles or abdomen, contact your health care provider. - Call if you have reduced urination during the day or increased urination at night. If you have non-emergent questions between now and the time of your follow up appointments: During 8am-5pm Wednesday through Wednesday call [phone] to speak with a nurse in the cardiology clinic All other times call [phone] and ask to speak to the fusion juncture grinder blood donor recruiter. Follow up Appointments: Future Appointments Date Time Provider Department Center 01/21/2022 9:00 AM Jaspreet Kinsey MD [facility] 01/12/2022, Appointment with Mr. Polo Pearce Quality Control Clerk: Dr. Jaspreet Kinsey PCP: JOCY Franco at [phone] Your Inpatient Doctor(s) at [facility]: Sobeida Jimenez MD - Attending physician Dr. Pairs Guerra MD - Resident Physician Dr. Yoselin Gómez DO, Resident Physician Dr. Edwin Mcghee MD, Fellow Physician Your Primary Care Provider: JOCY Franco [address] / [facility] [id number] For questions regarding issues relating to your hospitalization on the Hospital Medicine Service, please contact your inpatient physician through the [facility] Dental Prosthetist [phone]. Issues after hours and on weekends will be handled by [...] as needed. fluticasone propionate (FLONASE) 50 mcg/actuation Reeds, Suspension 1 spray by Each Nare route [...] mouth daily. 30 tablet 3 06/10/2021 03/16/2022 traZODone (Desyrel) 50 mg Tablet TAKE 1 TO 2 TABLETS BY MOUTH AT BEDTIME 07/05/2020 11/17/2022 diclofenac (VOLTAREN) 1 % Gel APPLY TO SINGLE KNEE ANKLE OR FOOT SOLES TOES TOP OF FOOT ONCE DAILY 06/21/2020 11/17/2022 documented as of this encounter Progress Notes * Deven Guerra Jr., MD - 01/01/2022 2:10 PM EDT To whom it may concern, Ms. Madrigal may return to work without restrictions. May return to work slowly, with activities limited to symptoms over the first few days. Thank you. Deven Guerra Jr, MD 01/01/22 2:12 PM * Demli Kim RCP - 12/31/2021 2:44 AM EDTSummary: NIV Pt provided with hospital NIV unit Pt said that she wears a BiPAP at home with high settings Initiated the following settings AUTO BILEVEL IPAP max 20 EPAP min 8 Pressure Support Max 8 Pressure Support Min 4 Pt tolerating these settings well documented in this encounter H&P Notes * Lorna Haider MD - 12/31/2021 12:16 AM EDT Images from the original note were not included. Cardiology H&P Patient info: Name: Loida Madrigal : 1970 PCP: JOCY Franco PCP phone number: [phone] Date of Admission: 12/30/2021 ( Hospital Day 1 day ) Attending:Sobeida Jimenez MD ID: Loida Madrigal is a 51 y.o. female w/ PMH of AVNRT, HFpEF, asthma, MARYLOU, obesity, mild PAH([facility] 06/2021) who presents today in transfer for evaluation of chest pain. Patient Active Problem List Diagnosis ??? NSTEMI (non-ST elevated myocardial infarction) ??? 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 Obesity ??? Dyslipidemia ??? Obstructive sleep apnea syndrome ??? Insomnia ??? (HFpEF) heart failure with preserved ejection fraction Overview Note: 05/2021: subacute, presented to [facility] with RUQ pain, weight gain, and progressive dyspnea. Noted to caryr most fluid in abdomen ??? Restless legs ??? Non-ST elevation ME (NSTEMI) ??? Asthma ??? Rhinitis, nonallergic, chronic Overview Note: HPI: Pt reports earlier at work today when she was walking around cleaning she started having palpitations with pounding sensation in her left lateral neck with associated nausea, diaphoresis and lightheadedness. She subsequently later developed chest pain described like a heaviness and pressure that was left sided and substernal with some associated shortness of breathe. 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 EMS was called and brought her to the ED .Reports duration from intial symptom onset until chest pain resolution was ~45 mins. Over the last month pt also report diminished exercise tolerance; will have shortness of breathe onexertion and chest pain that improves after resting for 2-3 mins. Was previously able to go up the stair without issues.She has also had worsening abdominal distention/ discomfort and orthopnea. Pt thinks her dry weight is 211, and reports over last month has weight increased to 220 despite taking lasix as prescribed. In the ED, her vitals were notable for BP 86/55 initially with repeat improved to 90s (baseline 90-110's), HR 50s, sating well on room air. EKG showed anterolateral ST-T abnormality, initial hs Tn was 500s. No chest pain since ~3pm. CT PE negative, ground glass opacities consistent with edema or ate lectasis. Started on heparin drip, ASA 325 and plavix 600 with plan to transfer to [facility] for furthermanagement. Pertinent prior studies below: ?? TTE 06/2021 Interpretation Summary 1. Left ventricle [...] No significant change from prior in 08/2019. ?? CT chest 04/2020 - no read, but focal calcification of proximal LCx; no blatant lung disease present. Mosaic attenuation diffusely, maybe airway trapping or fluid. ?? PFTs 07/2020 mild restriction, normal diffusion; no volumes done ?? LHC 2020 clean coronaries ?? RHC 06/2021 Hemodynamics: ?Right Heart Pressures ?Resting: ?Syst Diast ?EDP ?a ?v ?m ?RA ?8 ?5 ?4 ?RV 40 ?7 ?PA 38 ?15 ?24 ?PCW ?15 ?13 ?11 ?Hemodynamic Profile: ?Prof ile 1 ?CO ?3.14 ?CI ?1.57 ?TPR ?611 ?PVR ?331 ? Review of Systems: As per HPI PMH Past Medical History: Diagnosis Date ??? Asthma ??? Depression ??? Endometriosis S/p hysterectomy ??? Insomnia ??? Migraine ??? Obesity (BMI 30-39.9) ??? MARYLOU on CPAP ??? Seasonal allergies PSH Past Surgical History: Procedure Laterality Date ??? HYSTERECTOMY Family History Family History Problem Relation Age of Onset ??? Hypertension Mother ??? Arrhythmia Father ??? Heart Surgery Father ??? Myocardial Infarction Father ??? Coronary Artery Disease Father Social History Social History Socioeconomic History ??? Marital status: Spouse name: Not on file ??? Number of children: Not on file ??? Years of education: Not on file ??? Highest education level: Not on file Occupational History ??? Not on file Tobacco Use ??? Smoking status: Never Smoker ??? Smokeless tobacco: Never Used Vaping Use ??? Vaping Use: Never used Substance and Sexual Activity ??? Alcohol use: Never ??? Drug use: Never ??? Sexual activity: Not on file Other Topics Concern ??? 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 Clobetasol Rash Other reaction(s): Skin Rash Meds No current facility-administered medications on file prior to encounter. Current Outpatient Medications on File Prior to Encounter Medication Sig Dispense Refill ??? erenumab-aooe (Aimovig Autoinjector) 70 mg/mL Auto-Injector Inject subcutaneously every 30 days. ??? metoprolol succinate XL (Toprol-XL) 25 mg Tablet Sustained Release 24 hr Take 1 tablet by mouthdaily. (Patient taking differently: Take 50 mg by mouth daily. 09/19/21 Loida reports taking 50 mgonce daily for 6-12 months) 30 tablet 2 ??? nitroGLYcerin (Nitrostat) 0.4 [...] 3 ??? rOPINIRole (Requip) 1 mg Tablet 2 times daily. ??? traZODone (Desyrel) 50 mg Tablet TAKE 1 TO 2 TABLETS BY MOUTH AT BEDTIME ??? loratadine (Claritin) 10 mg Tablet Take 10 mg by mouth daily as needed. ??? fluticasone propionate (FLONASE) 50 mcg/actuation Reeds, Suspension 1 spray by Each Nare route daily. ??? gabapentin (Neurontin) 300 mg Capsule Take 300 mg by mouth 2 times daily. ??? topiramate (TOPAMAX) 50 mg Tablet Take 50 mg by mouth See Admin Instructions. ??? DULoxetine (CYMBALTA) 60 mg capsule Take 60 mg by mouth daily. ??? albuterol (PROVENTIL HFA;VENTOLIN HFA) 90 mcg/Actuation inhaler Inhale 2 puffs into the lungs every 4 hours as needed. Use with spacer ??? diclofenac (VOLTAREN) 1 % Gel APPLY TO SINGLE KNEE ANKLE OR FOOT SOLES TOES TOP OF FOOT ONCE DAILY Objective: Vitals Last value Range last 24 hrs Temperature Temp: -- Heart Rate Heart Rate: (!) 46 Heart Rate: [46-50] Blood Pressure BP: 109/62 BP: (109-123)/(48-65) Art Line BP BP (Arterial Line): -- MAP (NBP): [69 mmHg-80 mmHg] Respiratory Rate Resp: 12 Resp: [12-17] SpO2 SpO2: 95 % SpO2: [95 %-98 %] Oxygen Delivery Intake/Output Summary (Last 24 hours) at 12/31/2021 0710 Last data filed at 12/31/2021 0400 Gross per 24 hour Intake 0 ml Output 500 ml Net -500 ml Patient Vitals for the past 168 hrs: Weight 12/31/21 0600 99.8 kg (220 lb 0.3 oz) 12/30/21 2200 100.2 kg (220 lb 14.4 oz) Physical Exam: Gen: No acute distress, resting comfortably in bed. HEENT: PERRLA, EOMI, no icterus CV: Regular rate and rhythm, no murmurs. Pulm: Normal respiratory effort, CTA with good air entery bilaterally, no crackles. Abd: Soft, distended, non-tender. No guarding or rebound. Ext: No pedal edema. Air cast on RLE. Neuro: Cranially nerves intact. Moving all four extremities. AAOx3 Labs: Recent Labs 12/31/21 0020 WBC 7.9 HGB 13.3 HCT 39.1 PLATELET 209 MCV 92.2 Recent Labs 12/31/21 0020 NA 140 CL 110* CO2 17* K 4.1 MAGNESIUM 0.87 PHOS 3.5 CALCIUM 8.5 BUN 22* CREATININE 0.95 LFTs No results for input(s): PROT, ALBUMIN, AST, ALT, ALKPHOS, BILITOT, BILIDIR in the last 168 hours. Coags Recent Labs 12/31/21 0020 INR 1.1 PT 12.5 PTT 90* Cardiac Enzymes Recent Labs 12/31/21 0020 PROBNP 2,515* Endocrine Recent Labs 12/31/21 0020 06/13/21 1526 06/07/21 1726 TSH 7.36* 6.47* 5.83* No results for input(s): TROPONINT in the last 168 hours. Latest Reference Range & Units 12/31/21 00:20 12/31/21 03:28 Troponin-T HS <=14 ng/L 19 (H) 21 (H) (H): Data is abnormally high No results for input(s): POCGLU in the last 168 hours. Microbiology: none Imaging: No results found for this visit on 12/30/21. Medications Scheduled Meds: ??? aspirin 81 mg Oral Daily ??? atorvastatin 80 mg Oral QPM ??? DULoxetine DR 60 mg Oral Daily ??? lisinopriL 2.5 mg Oral Daily ??? gabapentin 300 mg Oral Nightly ??? clopidogreL 75 mg Oral Daily ??? empagliflozin 10 mg Oral Daily ??? rOPINIRole 1 mg Oral BID ??? traZODone 50 mg Oral Nightly ??? sodium chloride 0.9 % (flush) 5 mL Intravenous BID Continuous Infusions: ??? heparin (porcine) infusion 1,000 Units/hr (12/30/21 3789) PRN Meds: lidocaine, nitroGLYcerin, sodium chloride 0.9 % (flush), heparin (porcine) infusion AND heparin (porcine) Assessment & Plan: Loida Madrigal is a 51 y.o. female w/ PMH of AVNRT, HFpEF, asthma, MARYLOU, obesity who presents astransfer for evaluation of chest pain. Pt is currently hemodynamically stable and chest pain free. Troponin-I 580 at OSH; repeat on admission 19, EKG with anterolateral ST-T abnormality. Given chest pain started after 20-30 minutes of palpitations; possibly NSTEMI in setting of demand from SVT vs secondary to symptomatic SVT. Bedside echo without obvious WMA and given troponin now 19; will discontinue ACS protocol Pt also has had progressively worsening dyspnea on exertion, 9lb weight gain/ abdominal distention,elevated pro-BNP; will diuresis with 20IV lasix. Repeat TTE pending Will consult EP regarding if ablation for AVNRT should be pursued at this time given recurrent symptomatic episodes. Rest of plan as detailed below: #NSTEMI, type 2 --s/p ASA load -- discontinue --s/p plavix load -- discontinue -- discontinue heparin ggt --Atorvastatin 80mg qd --Telemetry --Nitroglycerin 0.4mg prn chest pain --EKG prn chest pain Cardiac Risk Stratification --HbA1c pending --TSH pending --Lipids pending #AVNRT - Hold metoprolol (2/2 bradycardia) - consult EP - continue tele - K>4, Mg >2 #HFpEF - last TTE (06/2021): EF 61%, normal LV size. - Home lasix 20mg PO - s/p 20mg IV lasix - continue empagliflozin 10mg QD - discontinue lisinopril 2.5mg QD - hold metoprolol - Strict I+O - daily weights - repeat TTE pending #Restless leg syndrome #chronic pain - Ropinerole 1mg BID - gabapentin 300mg - duloxetine 60mg #MARYLOU -continue nightly bipap #Routine Diet: NPO diet (Give Meds) DVT Prophylaxis:heparin gtt GI Prophylaxis: NA Code Status: Attempt Cardiopulmonary Resuscitation - Inpatient Dispo: Pending clinical course Lorna Haider MD Internal Medicine, PGY2 Cardiology, M1-S1, #[id number] 12/31/21 7:10 AM Associated attestation - Sobeida Jimenez MD - 12/31/2021 2:17 PM EDT I have seen and examined the patient, providing chavis components as outlined below. I have reviewed the resident???s above note; my evaluation of the patient is below: 51 yo F history of HFpEF, astham, MARYLOU on CPAP, obesity, AVNRT presented with CP and palpitations LH 2019: normal cors [facility] 2021: mild PHTN, mPA 24, CI 1.57 proBNP 2,515 TSH 7.36 Hs trop 19 >> 21 Was given BB for AVNRT and palpitation with an initial relief of symptoms, however, recently she has been feeling more palpitations and fatigue She was noted to have sinus morgan HR 40-50 TTE reviewed: biatrial enlargement, particularly left atrial enlargement, LVH, severely elevated LApressure (E/A >2, and severely decreased e' 5 cm/sec). Agree with SGLT2i, which she is already on. Gentle diuresis X-ray of right ankle DVT prophylaxis Symptoms suggestive of HFpEF, not ACS Consult EP Re: AVNRT and bradycardia 2 to BB, ? Ablation documented in this encounter Miscellaneous Notes * Plan of Care - Angelina Oquendo RN - 01/01/2022 12:40 PM EDT A&Ox4. VSS see flowsheet. On RA. IV and tele removed from pt. Questions and concerns addressed and answered. Pt had boot on R. Leg. AVS reviewed and completed w/ pt. Awaiting d/c off unit. * Care Management Discharge - Gisel De Oliveira RN - 01/01/2022 10:39 AM EDT CARE MANAGEMENT FINAL DISCHARGE NOTE Chart reviewed, care reviewed with primary team and at interdisciplinary rounds. Patient is medically ready for discharge to home. Needs for Transition of Care: Per discharge instructions. Plan for discharge is: Home w/o Services Outpatient Agency/Support Group Needs: None Agency Referrals & Follow-up Care: Per discharge instructions. Transportation: family or friend will provide Wheelchair van/Ambulance? 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 Current Living Arrangements: home/apartment/condo. Accessibility Concerns:no concerns. Current Functional Ability: Independent DME used at home: none DME Needed at Discharge: None Patient is insured through: Primary Insurance: MVP Payor: MVP / Plan: MVP [place] / Product Type: *No Product type* / Secondary Insurance: N/A Prescription Coverage: This plan was formulated with input from patient, (please identify family/friend involved if applicable) and team. All are in agreement with plan. * Plan of Care - Angelina Oquendo RN - 12/31/2021 3:34 PM EDT OUTCOME EVALUATION NOTE: OUTCOME SUMMARY: A&Ox4. VSS see flowsheet. SB see tele report. Pt had run of PACs today. Pt reports random palpations throughout the day. Pt denies CP/SOB. On RA. Pain reported in right ankle. Boot on R. Ankle because of recent injury. R. Ankle was elevated and Iced today. Pt has no PRN meds for pain, MD made aware and no orders put in. TTE done at bedside today. BM today. Pt up to toilet. Diet order placed, cardiac/[facility] diet. PRN ibuprofen ordered and given to pt @1623. PLAN MOVING FORWARD: EP consult for possible ablation D/c home when medically ready INDIVIDUALIZED FALL PREVENTION INTERVENTIONS: Patient-specific fall risk factors per assessment: [current deficits]: Tele Spo2 Boot on R. leg Assistance [level of assistance required for transfers and ambulation]: SBA Supervision [direct monitoring required during toileting and ADLs]: SBA Surveillance [continuous indirect monitoring]: Tele Spo2 Safety rounds Patient-specific fall prevention interventions for sensory deficits provided, if applicable: Call ghosh within reach Nonskid socks Room near nurse station Safety rounds CARE PLAN GOAL OUTCOME EVALUATION: Pt was supposed to have cath today but wasn't able to. Diet ordered and pt ate lunch. TTE done at bedside today. EP consult. Diuresing w/ Lasix. Monitoring I&Os. Monitoring for CP/SOB. MonitoringVS. Problem: Fluid Imbalance (Heart Failure) Goal: Fluid Balance Outcome: Ongoing (Interventions Implemented as Appropriate) Problem: Cardiac Output Decreased (Heart Failure) Goal: Optimal Cardiac Output Outcome: Ongoing (Interventions Implemented as Appropriate) * Initial Assessments - Marta Diamond RN - 12/31/2021 10:22 AM EDT Office of Care Management Initial Assessment Medical record reviewed. Plan of care and patient status discussed with direct care Registered Nurse and/or Care Team in multidisciplinary rounds. Reason for Hospitalization: NSTEMI SVT Last COVID test: Lab Results Component Value Date [id number] Not Detected 06/13/2021 Present on Admission: ??? NSTEMI (non-ST elevated myocardial infarction) Hospitalizations Within the Past 30 Days: no previous admission in last 30 days Patient receiving hospital care under Inpatient status. Admission order reviewed. Health/Prescription Coverage: Primary Insurance: MVP Payor: MVP / Plan: MVP [place] / Product Type: *No Product type* / Secondary Insurance: N/A ; Why not?: n/a Prescription Coverage: Preferred Pharmacy: [facility] [address] [place] [id number] [facility] [place], [place] - [address] [facility] [address] Advance Care Planning: Attempt Cardiopulmonary Resuscitation - Inpatient <no information> -Advanced Directive: No, need to discuss Current Functional Ability: Independent 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 Current Living Arrangements: home/apartment/condo. Accessibility Concerns:no concerns. Current DME: none [address] [facility] [phone] Social & Family Supports: Extended Emergency Contact Information Primary Emergency Contact: Boby Madrigal Mobile Relation: Spouse Secondary Emergency Contact: TALI SHAH Mobile Relation: Mother Current Care Provided by: self [...] Plan: Patient to d/c to home via spouse/ private car when medically ready. Registered Nurse Varnish Blender / Human Services Worker will continue to follow patient???s progress and remain available if situation changes for coordination of care, psychosocial support and/or discharge planning. Office of Care Management documented in this encounter Plan of Treatment Upcoming Encounters Date Type Department Care Team (Late st Contact Info) Description 10/08/2023 8:30 AM EDT Tech [place] [phone] Jose Cook 10/08/2023 9:30 AM EDT Office [place] [phone] MD [facility] [place] [address] 10/21/2023 10:30 AM EDT Appointment Nuclear Medicine at [place] [address] Mary Reyes, [facility] [place] [address] 10/21/2023 11:30 AM EDT Appointment Nuclear Medicine at [address] Mary Reyes [facility] [place] [address] 10/21/2023 12:30 PM EDT Appointment Nuclear Medicine at [place] [phone] Mary Reyes [facility] [place] [address] 10/21/2023 1:30 PM EDT Appointment Nuclear Medicine at [place] [phone] Mary Reyes [facility] [place] [address] 10/21/2023 2:30 PM EDT Appointment [place] [phone] Mary Reyes [facility] [place] [address] 10/26/2023 4:00 PM EDT Office Visit Cardiology at [address] [phone] Jaspreet Kinsey MD [facility] [place] [address] 10/28/2023 9:00 AM EDT Office Visit [place] [address] 10/29/2023 10:00 AM EDT Clinical Support [place] [address] 10/29/2023 10:15 AM EDT Procedure visit [place] [address] 11/01/2023 5:00 PM EDT Office [place] [phone] Selene Browning, PhD [facility] [address] [place] [id number] 11/22/2023 4:40 PM EDT Office Visit Cardiology at [address] [phone] Porsha Mcdaniels MD [facility] [address] 12/13/2023 10:00 AM EDT Clinical [place] [phone] [facility] [place] [address] documented as of this encounter Procedures Procedure Name Priority Date/Time Associated Diagnosis Comments XR ANKLE MIN 3 VIEWS RIGHT Routine 01/01/2022 11:13 AM EDT HC VENIPUNCTURE Routine 01/01/2022 8:56 AM EDT HEMOGRAM Routine 01/01/2022 4:15 AM EDT DIFFERENTIAL, AUTOMATED Routine 01/02/20 4:15 AM EDT HC CBC,PLT & AUTO DIFF Routine 4:15 AM EDT HC VENIPUNCTURE Routine 01/01/2022 4:15 AM EDT ECHO COMPLETE Routine 12/31/2021 8:02 AM EDT Acute on chronic heart failure with preserved ejection fraction HC UNFRACTIONATED HEPARIN (HEP UFH) Routine 12/31/2021 7:01 AM EDT HC VENIPUNCTURE Routine 12/31/2021 7:01 AM EDT HC VENIPUNCTURE STAT 12/31/2021 3:28 AM EDT EKG 12-LEAD Routine 12/31/2021 3:23 AM EDT NSTEMI (non-ST elevated myocardial infarction) HC TROPONIN T STAT 12/31/2021 12:20 AM EDT HC UNFRACTIONATED HEPARIN (HEP UFH) Routine 12/31/2021 12:20 AM EDT HEMOGRAM Routine 12/31/2021 12:20 AM EDT DIFFERENTIAL, AUTOMATED Routine 01/01/20 12:20 AM EDT HC PARTIAL THROMBOPLASTIN TIME Routine 12/31/2021 12:20 AM EDT HC PROTHROMBIN TIME Routine 12/31/2021 1 2:20 AM EDT HC CBC,PLT & AUTO DIFF Routine 12:20 AM EDT HC THYROID STIMULATING HORMONE, SERUM Routine 12/31/2021 12:20 AM EDT HC PHOSPHORUS, SERUM Routine 12/31/2021 12:20 AM EDT HC PROBNP Routine 12/31/2021 12:20 AM EDT HC MAGNESIUM, SERUM Routine 12/31/2021 1 2:20 AM EDT HC HEMOGLOBIN A1C Routine 12/31/2021 12: 20 AM EDT LIPID PANEL (REFLEX DIRECT LDL) Routine 12/31/2021 12:20 AM EDT BASIC METABOLIC PANEL (NON-FASTING) Routine 12/31/2021 12:20 AM EDT documented in this encounter Results * XR Ankle Min 3 views Right (Generic) (01/01/2022 11:13 AM EDT) Anatomical Region Laterality Modality Ankle Right Digital Radiogra phy Impressions 01/01/2022 1:56 PM EDT Soft tissue swelling over the lateral malleolus and small tibiotalar effusion are present. No underlying fracture is seen. I have personally reviewed the image(s) and the resident's interpretation and agree with the findings, Olive Barrera MD at 01/01/2022 1:56 PM Thank you for letting us participate in the care of this patient. ??If you are a health care provider and have any questions regarding this report, please contact the number below. ??For patients who have questions please contact the health career services director that requested 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 ? Narrative 01/01/2022 1:56 PM EDT EXAMINATION: XR ANKLE MIN 3 VIEWS RIGHT (GENERIC) CLINICAL HISTORY: R foot pain after fall, assess for fracture (as entered by ordering provider in the order requisition) TECHNIQUE: Nonweightbearing AP, mortise, and lateral views of the right ankle. COMPARISON: None FINDINGS: No acute fracture. Joint spaces are preserved. The talar dome is intact. Ankle mortise is congruent on these nonweightbearing views. Soft tissue swelling is noted at the lateral malleolus. Small tibiotalar effusion is present. No radiopaque foreign body or subcutaneous gas. Procedure Note Olive Barrera MD - 01/01/2022 EXAMINATION: XR ANKLE MIN 3 VIEWS RIGHT (GENERIC) CLINICAL HISTORY: R foot pain after fall, assess for fracture (as enteredby ordering provider in the order requisition) TECHNIQUE: Nonweightbearing AP, mortise, and lateral views of the right ankle. COMPARISON: None FINDINGS: No acute fracture. Joint spaces are preserved. The talar dome is intact.Ankle mortise is congruent on these nonweightbearing views. Soft tissue swellingis noted at the lateral malleolus. Small tibiotalar effusion is present. No radiopaque foreign body or subcutaneous gas. IMPRESSION Soft tissue swelling over the lateral malleolus and small tibiotalareffusion are present. No underlying fracture is seen. I have personally reviewed the image(s) and the resident's interpretationand agree with the findings, Olive Barrera MD at 01/01/2022 1:56 PM Thank you for letting us participate in the care of this patient. If youare a health care provider and have any questions regarding this report,please contact the number below. For patients who have questions please contactthe health career services director that requested 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 Sobeida Jimenez MD IMG DX ORDERABLES * Magnesium (01/01/2022 8:56 AM EDT) Magnesium 0.96 0.69 - 1.07 mmol/L [facility] Blood 01/01/2022 8:56 AM EDT 01/01/2022 9:19 AM EDT Narrative Resulting Agency Comment Spec In Lab Sobeida Jimenez [place] [address] * Differential, Automated (01/01/2022 4:15 AM EDT) Neutrophils % 59.8 % [facility] Neutr Abs (ANC) 3.72 1.70 - 6.10 x10(3)/[facility] Lymphocytes % 26.0 % [facility] Lymphocytes Abs 1.6 0.9 - 3.2 x10(3)/[facility] Monocytes % 8.7 % [facility] Monocyte Abs 0.5 0.3 - 0.9 x10(3)/[facility] Eosinophils % 4.5 % [facility] Eosinophils Abs 0.3 0.0 - 0.4 x10(3)/[facility] Basophils % 0.8 % [facility] Basophils Abs 0.0 0.0 - 0.1 x10(3)/[facility] Immature Gran % 0.20 % [facility] Comment: Immature granulocytes(IG's)percentage and absolute count will include metamyelocytes, myelocytes, and promyelocytes. Blood smears from CBCs yielding IG's will be scanned manually for concordance. If this scan disagrees with the automated IG or if promyelocytes are noted, a manual differential will be performed. Shonda Gran Abs 0.01 0.00 - 0.04 x10(3)/[facility] Blood 01/01/2022 4:15 AM EDT 01/01/2022 4:23 AM EDT Narrative Resulting Agency Comment Spec In Lab Lorna Haider MD HEMATOLOGY ORDERABL ES Performing Organization Address City/[facility]/[place] [address] * Hemogram (01/01/2022 4:15 AM EDT) WBC 6.2 4.0 - 9.5 x10(3)/[facility] RBC 4.43 4.00 - 5.21 x10(6)/[facility] Hemoglobin 13.9 11.7 - 15.5 g/dL [facility] Hematocrit 41.3 35.7 - 45.8 % [facility] MCV 93.2 82.6 - 94.4 fL [facility] MCH 31.4 27.1 - 32.0 pg [facility] MCHC 33.7 31.7 - 35.0 g/dL [facility] Platelets 204 145 - 357 x10(3)/[facility] RDWSD 43.4 37.0 - 46.0 [facility] RDWCV 12.6 11.5 - 14.1 % [facility] MPV 10.6 7.6 - 12.9 [facility] nRBC % Auto 0.0 % [facility] nRBC Abs Auto 0.000 0.000 - 0.000 x10(3)/[facility] Blood 01/01/2022 4:15 AM EDT 01/01/2022 4:23 AM EDT Narrative Resulting Agency Comment Spec In Lab Lorna Haider MD HEMATOLOGY ORDERABL ES [facility] [place] [address] * (ABNORMAL) Basic Metabolic Panel (non-fasting) (01/01/2022 4:15 AM EDT) Pathologist [facility] Glucose Lvl 103 65 - 199 mg/dL [facility] Comment:Diabetes: >=200 mg/d L plus symptoms BUN 26(H) 8 - 18 mg/dL [facility] Creatinine 1.04 0.70 - 1.20 mg/dL [facility] Sodium 137 135 - 145 mmol/L [facility] Potassium 4.0 3.5 - 5.0 mmol/L [facility] Comment: Please note: ??Patients with WBC >100,000 may have falsely elevated Potassium levels. ??For accurate Potassium quantification in these patients send serum separator tube (gold top) for subsequent determinations. ??Contact the Clinical Chemistry Laboratory if there are any questions. Chloride 109(H) 98 - 107 mmol/L [facility] CO2 15(L) 22 - 31 mmol/L [facility] Anion Gap 13 5 - 15 mmol/L [facility] Calcium 8.9 8.5 - 10.5 mg/dL [facility] Estimated GFR 65 >=60 mL/min/1. 73 m?? [facility] Comment: This patient's [...] and symptoms in addition to eGFR. Blood 01/01/2022 4:15 AM EDT 01/01/2022 4:27 AM EDT Narrative Resulting Agency Comment Spec In Lab Sobeida Jimenez MD CHEMISTRY ORDERABLES [facility] [place] [address] * ECHO COMPLETE (12/31/2021 8:02 AM EDT) Anatomical Region Laterality Modality Cardiac Other 12/31/2021 6:52 AM EDT Narrative 12/31/2021 8:30 AM EDT ? Echocardiogram Report Name: LOIDA MADRIGAL ? Study Date: 12/31/2021 06:52 AMBP: 109/62 mmHg ? [facility] 1970 ? Height: 163 cm ? Account: [id number] Age: 51 yrs ? Weight: 100 kg Gender: Female ?BSA: 2.0 m2 Ordering Physician: SOBEIDA JIMENEZ Referring Physician: KARIN ESPINOSA Performed By: HAIM Harris Reason For Study: Acute on chronic heart failure with preserved ejection fraction Exam Location: [facility]. Interpretation Summary -Left ventricle is of normal size. Wall thickness is mildly increased. There is no ventricular septal defect. Left ventricular systolic function is normal. The left ventricular ejection fraction is 60% by Reyes's biplane. There are no segmental wall motion abnormalities. -The right ventricle is of normal size. Right ventricular systolic function is normal. -The LA is severly dilated -No significant valvular regurgitation noted on this study. -There is evidence of elevated left sided pressures -No significant change compared to the prior study from 06/09/21 Procedure Complete-[id number]. Satisfactory quality. There is sinus bradycardia. Left Ventricle Left [...] Valve The aortic valve is probably trileaflet. The aortic valve is mildly thickened. There is no aortic stenosis. There is [...] identified. Ascending aorta is normal in size. Venous Inferior vena cava is normal in size. Inferior vena cava collapse greater than 50% with respiration. Pericardium/Pleural There is a trivial pericardial effusion. The pericardial effusion is circumferential. A pericardial fat pad is present. Epicardial fat is present. Hemodynamics Pulmonary artery hypertension could not be assessed due to inadequate tricuspid regurgitation jet. Left ventricular filling pressure is increased. Ejection Fraction ?2D Measurements ? Volumes LV Biplane EF: 60.1 % ? IVSd: 1.2 cm ? LA Volume Index: ?LVIDd: 4.6 cm ?LVIDs: 3.2 cm ?52.6 ml/m2 ?LVPWd: 0.91 cm ? EDV Biplane: 62.5 ml ? EDV Biplane Index: 30.6 ?LV mass(C)d: 172.4 grams ? ESV Biplane: 25.0 ml ?LV mass(C)dI: 84.4 grams/m2 ?ESV Biplane Index: 12.2 ?Ao root diam: 2.4 cm ? SV(LVOT): 47.5 ml ?Ao root diam index: 1.2 ?LV Stroke Volume: 47.5 ml ?asc Aorta Diam: 3.2 cm ?LVOT diam: 1.7 cm ?SI(LVOT): 23.3 ml/m2 ?TAPSE_phl: 1.7 cm Doppler LV V1 VTI: 21.6 cm LVOT max Velocity: 101.1 cm/sec Lat Peak E' Ilir: 4.3 cm/sec Med Peak E' Ilir: 3.9 cm/sec I ?WMSI = 1.00 ? % Normal = 100 ?Segments ??Size X - Cannot ?? 1 - Normal ?? 2 - ? 3 - Akinetic 4 - ?1-2 ? small Interpret ? Hypokinetic ?Dyskinetic ?? 3-5 ? moderate 5 - ? 6-14 ?large Aneurysmal ?15-16 ?? diffuse Procedure Note Jose Chambers MD - 12/31/2021 Echocardiogram Report Name: JUDE, MELINDA Study Date: 206:52 AMBP: 109/62 mmHg Patient Location[facility]^C450^B : 1970 Height: 163 cm Account: [id number] Age: 51 yrs Weight: 100 kg Gender: Female BSA: 2.0 m2 Ordering Physician: SOBEIDA JIMENEZ Referring Physician: KARIN ESPINOSA Performed By: HAIM Harris Reason For Study: Acute on chronic heart failure with preserved ejectionfraction Exam Location: [facility]. Interpretation Summary -Left ventricle is of normal size. Wall thickness is mildly increased.There is no ventricular septal defect. Left ventricular systolic function is normal.The left ventricular ejection fraction is 60% by Reyes's biplane. There are nosegmental wall motion abnormalities. -The right ventricle is of normal size. Right ventricular systolicfunction is normal. -The LA is severly dilated -No significant valvular regurgitation noted on this study. -There is evidence of elevated left sided pressures -No significant change compared to the prior study from 06/09/21 Procedure Complete-[id number]. Satisfactory quality. There is sinus bradycardia. Left Ventricle Left ventricle is of normal size. Wall thickness is mildly increased.There is no ventricular septal defect. Left ventricular systolic function is normal.The left ventricular ejection fraction is 60% by Reyes's biplane. There are nosegmental wall motion abnormalities. Right Ventricle The right ventricle is of normal size. Right ventricular systolic functionis normal. Left Atrium The left atrium is severely dilated. There is no evidence for a patentforamen ovale. Right Atrium The right atrium is normal. Aortic Valve The aortic valve is probably trileaflet. The aortic valve is mildlythickened. There is no aortic stenosis. There is [...] are identified.Ascending aorta is normal in size. Venous Inferior vena cava is normal in size. Inferior vena cava collapse greaterthan 50% with respiration. Pericardium/Pleural There is a trivial pericardial effusion. The pericardial effusion is circumferential. A pericardial fat pad is present. Epicardial fat ispresent. Hemodynamics Pulmonary artery hypertension could not be assessed due to inadequatetricuspid regurgitation jet. Left ventricular filling pressure is increased. Ejection Fraction 2D Measurements Volumes LV Biplane EF: 60.1 % IVSd: 1.2 cm LA VolumeIndex: LVIDd: 4.6 cm LVIDs: 3.2 cm 52.6 ml/m2 LVPWd: 0.91 cm EDV Biplane: 62.5ml EDV BiplaneIndex: 30.6 LV mass(C)d: 172.4 grams ESV Biplane: 25.0ml LV mass(C)dI: 84.4 grams/m2 ESV BiplaneIndex: 12.2 Ao root diam: 2.4 cm SV(LVOT): 47.5ml Ao root diam index: 1.2 LV Stroke Volume:47.5 ml asc Aorta Diam: 3.2 cm LVOT diam: 1.7 cm SI(LVOT): 23.3ml/m2 TAPSE_phl: 1.7 cm Doppler LV V1 VTI: 21.6 cm LVOT max Velocity: 101.1 cm/sec Lat Peak E' Ilir: 4.3 cm/sec Med Peak E' Ilir: 3.9 cm/sec I WMSI = 1.00 % Normal = 100 SegmentsSize X - Cannot 1 - Normal 2 - 3 - Akinetic 4 - 1-2small Interpret Hypokinetic Dyskinetic 3-5moderate 5 - 6-14large Aneurysmal 15-16diffuse Sobeida Jimenez MD ECHO ORDERABLES * Heparin (unfractionated) Level (12/31/2021 7:01 AM EDT) Heparin UFH Level 0.43 IU/mL [facility] Comment: Heparin (anti-Xa) [...] cardiac surgery): 0.1 ? 0.3 IU/mL Blood 12/31/2021 7:01 AM EDT 12/31/2021 7:11 AM EDT Narrative Resulting Agency Comment Spec In Lab Sobeida Jimenez MD HEMATOLOGY ORDERABLE S Performing Organization Address [facility] de Phone Number [facility] [place] [address] * T4, free (12/31/2021 7:01 AM EDT) Free T4 1.16 0.93 - 1.70 ng/dL [facility] Comment: Reference Interval (ng/dL): Females: ??First Trimester: 0.97-1.68 ??Second Trimester: 0.77-1.51 ??Third Trimester: 0.77-1.49 Blood 12/31/2021 7:01 AM EDT 12/31/2021 7:11 AM EDT Narrative Resulting Agency Comment Spec In Lab Sobeida Jimenez MD CHEMISTRY ORDERABLES Performing Organization Address [facility] de Phone Number [facility] [place] [address] * (ABNORMAL) Troponin (12/31/2021 3:28 AM EDT) Pathologist [facility] Troponin-T HS 21(H) <=14 ng/L [facility] troponin value can be found in the [facility] Laboratory Test Catalog Troponin - [facility] Laboratory Test Catalog Reference: Fourth Uneeda Definition of Myocardial Infarction. Journal of the [place] [employer] 2018;72:8389-1517 Blood 12/31/2021 3:28 AM EDT 12/31/2021 4:31 AM EDT Narrative Resulting Agency Comment Spec In Lab Sobeida Jimenez [place] [address] * EKG 12 Lead (12/31/2021 3:23 AM EDT) Ventricular rate 44 BPM MUSE SYSTEM Atrial Rate 44 BPM MUSE SYSTEM P-R Interval 190 ms MUSE SYSTEM QRS Duration 86 ms MUSE SYSTEM Q-T Interval 562 ms MUSE SYSTEM QTC Calculated (Bezet) 480 ms MUSE SYSTEM Calculated P [place] 32 degrees MUSE SYSTEM Calculated R [place] 58 degrees MUSE SYSTEM Calculated T [place] 24 degrees MUSE SYSTEM INTERPRETATION Marked sinus bradycardia Possible Lateral infarct (cited on or before 30-DEC-2021) Nonspecific ST and T wave abnormality Prolonged QT Abnormal ECG When compared with ECG of 30-DEC-2021 22:45, No significant change was found I personally reviewed the tracing and edited the fellows interpretation Confirmed by fellow MD Rosalinda, Alejandro ([id number]) on 12/31/2021 9:13:46 PM Confirmed by MD Angelo Danette ([id number]) on 01/01/2022 7:24:12 AM MUSE SYSTEM 12/31/2021 3:23 AM EDT 01/01/2022 7:24 AM EDT Sobeida Jimenez MD ECG ORDERABLES MUSE SYSTEM * Heparin (unfractionated) Level (12/31/2021 12:20 AM EDT) Pathologist [facility] Heparin UFH Level 0.40 IU/mL [facility] Comment: Specimen drawn [...] cardiac surgery): 0.1 ? 0.3 IU/mL Blood 12/31/2021 12:2 0 AM EDT 12/31/2021 12:41 AM EDT Narrative Resulting Agency Comment Spec In Lab Sobeida Jimenez MD HEMATOLOGY ORDERABLE S Performing Organization Address City/[facility]/ZIP Co de Phone Number [facility] [place] [phone] * Differential, Automated (12/31/2021 12:20 AM EDT) Pathologist [facility] Neutrophils % 57.0 % [facility] Neutr Abs (ANC) 4.48 1.70 - 6.10 x10(3)/[facility] Lymphocytes % 32.4 % [facility] Lymphocytes Abs 2.6 0.9 - 3.2 x10(3)/[facility] Monocytes % 6.4 % [facility] Monocyte Abs 0.5 0.3 - 0.9 x10(3)/[facility] Eosinophils % 3.3 % [facility] Eosinophils Abs 0.3 0.0 - 0.4 x10(3)/[facility] Basophils % 0.5 % [facility] Basophils Abs 0.0 0.0 - 0.1 x10(3)/[facility] Immature Gran % 0.40 % [facility] Comment: Immature granulocytes(IG's)percentage and absolute count will include metamyelocytes, myelocytes, and promyelocytes. Blood smears from CBCs yielding IG's will be scanned manually for concordance. If this scan disagrees with the automated IG or if promyelocytes are noted, a manual differential will be performed. Shonda Gran Abs 0.03 0.00 - 0.04 x10(3)/[facility] Blood 12/31/2021 12:2 0 AM EDT 12/31/2021 12:41 AM EDT Narrative Resulting Agency Comment Spec In Lab Lorna Haider MD HEMATOLOGY ORDERABL ES [facility] [place] [address] * Hemogram (12/31/2021 12:20 AM EDT) WBC 7.9 4.0 - 9.5 x10(3)/[facility] RBC 4.24 4.00 - 5.21 x10(6)/[facility] Hemoglobin 13.3 11.7 - 15.5 g/dL [facility] Hematocrit 39.1 35.7 - 45.8 % [facility] MCV 92.2 82.6 - 94.4 fL [facility] MCH 31.4 27.1 - 32.[address] [facility] MCHC 34.0 31.7 - 35.0 g/dL [facility] Platelets 209 145 - 357 x10(3)/[facility] RDWSD 43.2 37.0 - 46.0 fL [facility] RDWCV 12.8 11.5 - 14.1 % [facility] MPV 11.2 7.6 - 12.9 fL [facility] nRBC % Auto 0.0 % [facility] nRBC Abs Auto 0.000 0.000 - 0.000 x10(3)/mcL [facility] Blood 12/31/2021 12:2 0 AM EDT 12/31/2021 12:41 AM EDT Narrative Resulting Agency Comment Spec In Lab Lorna Haider MD HEMATOLOGY ORDERABL ES [facility] [place] [address] * (ABNORMAL) Troponin (12/31/2021 12:20 AM EDT) Troponin-T HS 19(H) <=14 ng/L [facility] Comment: [...] troponin value can be found in the [facility] Laboratory Test Catalog Troponin - [facility] Laboratory Test Catalog Reference: Fourth Uneeda Definition of Myocardial Infarction. Journal of the [place] [employer] 2018;72:1086-4922 Blood 12/31/2021 12:2 0 AM EDT 12/31/2021 12:41 AM EDT Narrative Resulting Agency Comment Spec In Lab Sobeida Jimenez MD CHEMISTRY ORDERABLES [facility] [place] [address] * (ABNORMAL) Hemoglobin A1c (12/31/2021 12:20 AM EDT) Hemoglobin A1C 5.7(H) 4.3 - 5.6 % [facility] Comment: Reference Range: 4.3 - 5.6% [...] 36: Suppl. 1, S67-74 Est Avg Gluc 118 mg/dL [facility] Comment: eAG equivalents for HbA1c [...] into estimated average glucose values. ??Diabetes Care 2008:31(8):3276-1784. Blood 12/31/2021 12:2 0 AM EDT 12/31/2021 12:42 AM EDT Narrative Resulting Agency Comment Spec In Lab Sobeida Jimenez MD CHEMISTRY ORDERABLES [facility] [place] [address] * Lipid Panel (Reflex Direct LDL) (12/31/2021 12:20 AM EDT) Chol, Total 122 mg/dL [facility] Comment: Lower Risk: <200 mg/dL Average Risk: 200-239 mg/dL Higher Risk: >yv=225 mg/dL Triglycerides 111 mg/dL [facility] Comment: Average Risk/Lower Risk: <150 mg/dL Borderline High Risk: 150-199 mg/dL High Risk: 200-499 mg/dL Very High Risk: >tm=211 mg/dL HDL 35 mg/dL [facility] Comment: Males: ?? Higher Risk: <40 mg/dL Females: ?? Higher Risk: <50 mg/dL LDL Cholesterol 65 mg/dL [facility] Comment: Lowest Risk: <100 mg/dL Lower Risk: 100-129 mg/dL Borderline High Risk: 130-159 mg/dL High Risk: 160-189 mg/dL Very High Risk: >us=879 mg/dL Chol/HDL Ratio 3.5 ratio [facility] Lipid Interpretation See Note [facility] Comment: Lipid management should be guided by a patient? s ASCVD risk, goals and preferences. ACC/AHA Guidelines recommend high intensity statin if clinical ASCVD or LDL greater than or equal to 190 mg/dL. http://Allurenturl.com/WRU-QMS-Vyinygsag Adults aged 40-75 with LDL 70-189 mg/dL should have their 10 year ASCVD risk estimated with the ACC/AHA ASCVD risk timber estimator http://tools.acc.org/QKQSQ-Nakg-Jjmughhzm/ Statin should be discussed if risk greater [...] critical component of ASCVD risk reduction. Blood 12/31/2021 12:2 0 AM EDT 12/31/2021 12:41 AM EDT Narrative Resulting Agency Comment Spec In Lab Sobeida Jimenez MD CHEMISTRY ORDERABLES Performing Organization Address [facility] Co de Phone Number [facility] [place] [address] * (ABNORMAL) APTT (12/31/2021 12:20 AM EDT) PTT 90(H) 25 - 37 sec [facility] Comment: The PTT is NOT appropriate for heparin monitoring. Use the Anti-Xa level for heparin monitoring (HEP UFH) or LMWH monitoring (HEP LMW). A PTT less than 37 seconds generally indicates adequate hemostasis. Blood 12/31/2021 12:2 0 AM EDT 12/31/2021 12:41 AM EDT Narrative Resulting Agency Comment Spec In Lab Sobeida Jimenez MD HEMATOLOGY ORDERABLE S Performing Organization Address [facility] Co de Phone Number [facility] [place] [address] * Prothrombin Time (12/31/2021 12:20 AM EDT) PT 12.5 9.4 - 12.5 sec [facility] INR 1.1 [facility] Comment: An INR <2.0 indicates [...] be appropriate depending on clinical circumstances. Blood 12/31/2021 12:2 0 AM EDT 12/31/2021 12:41 AM EDT Narrative Resulting Agency Comment Spec In Lab Sobeida Jimenez MD HEMATOLOGY ORDERABLE S Performing Organization Address City/[facility]/ZIP Co de Phone Number [facility] [place] [address] * (ABNORMAL) pro-Brain Natriuretic Peptide (12/31/2021 12:20 AM EDT) ProBNP 2,515(H) <=124 pg/mL [facility] Blood 12/31/2021 12:2 0 AM EDT 12/31/2021 12:41 AM EDT Narrative Resulting Agency Comment Spec In Lab Sobeida Jimenez MD CHEMISTRY ORDERABLES Performing Organization Address [facility] Co de Phone Number [facility] [place] [address] * (ABNORMAL) TSH (12/31/2021 12:20 AM EDT) TSH 7.36(H) 0.27 - 4.20 mcIU/mL [facility] Comment: Reference Interval (mcIU/mL): Females: ??First Trimester: 0.23-3.88 ??Second Trimester: 0.22-3.90 ??Third Trimester: 0.44-4.66 Blood 12/31/2021 12:2 0 AM EDT 12/31/2021 12:41 AM EDT Narrative Resulting Agency Comment Spec In Lab Sobeida Jimenez MD CHEMISTRY ORDERABLES Performing Organization Address [facility]/ZIP Co de Phone Number [facility] [place] [address] * Phosphorus (12/31/2021 12:20 AM EDT) Phosphorus 3.5 2.5 - 4.5 mg/dL [facility] Blood 12/31/2021 12:2 0 AM EDT 12/31/2021 12:41 AM EDT Narrative Resulting Agency Comment Spec In Lab Sobeida Jimenez MD CHEMISTRY ORDERABLES Performing Organization Address City/[facility]/ZIP Co de Phone Number [facility] [place] [address] * Magnesium (12/31/2021 12:20 AM EDT) Pathologist [facility] Magnesium 0.87 0.69 - 1.07 mmol/L [facility] Blood 12/31/2021 12:2 0 AM EDT 12/31/2021 12:41 AM EDT Narrative Resulting Agency Comment Spec In Lab Sobeida Jimenez MD CHEMISTRY ORDERABLES Performing Organization Address City/[facility]/ZIP Co de Phone Number [facility] [place] [address] * (ABNORMAL) Basic Metabolic Panel (non-fasting) (12/31/2021 12:20 AM EDT) Pathologist [facility] Glucose Lvl 88 65 - 199 mg/dL [facility] Comment:Diabetes: >=200 mg/d L plus symptoms BUN 22(H) 8 - 18 mg/dL [facility] Creatinine 0.95 0.70 - 1.20 mg/dL [facility] Sodium 140 135 - 145 mmol/L [facility] Potassium 4.1 3.5 - 5.0 mmol/L [facility] Comment: Please note: ??Patients with WBC >100,000 may have falsely elevated Potassium levels. ??For accurate Potassium quantification in these patients send serum separator tube (gold top) for subsequent determinations. ??Contact the Clinical Chemistry Laboratory if there are any questions. Chloride 110(H) 98 - 107 mmol/L [facility] CO2 17(L) 22 - 31 mmol/L [facility] Anion Gap 13 5 - 15 mmol/L [facility] Calcium 8.5 8.5 - 10.5 mg/dL [facility] Estimated GFR 72 >=60 mL/min/1. 73 m?? [facility] Comment: This patient's [...] and symptoms in addition to eGFR. Blood 12/31/2021 12:2 0 AM EDT 12/31/2021 12:41 AM EDT Narrative Resulting Agency Comment Spec In Lab Sobeida Jimenez MD CHEMISTRY ORDERABLES [facility] [place] [address] documented in this encounter Visit Diagnoses Diagnosis SVT (supraventricular tachycardia) Other specified cardiac dysrhythmias Non-ST elevation ME (NSTEMI) Acute myocardial infarction, unspecified site, episode of care unspecified NSTEMI (non-ST elevated myocardial infarction) Acute myocardial infarction, subendocardial infarction, episode of care unspecified Acute on chronic heart failure with preserved ejection fraction NSTEMI (non-ST elevated myocardial infarction) Acute myocardial infarction, subendocardial infarction, episode of care unspecified documented in this encounter Admitting Diagnoses Diagnosis NSTEMI (non-ST elevated myocardial infarction) Acute myocardial infarction, subendocardial infarction, episode of care unspecified documented in this encounter Administered Medications Inactive Administered Medications - up to 3 most recent administrations Medication Order MAR Action Action Date Dose Rate Site atorvastatin (Lipitor) tablet 80 mg 80 mg, Oral, EVERY EVENING, First dose on Wed12/31/21 at 0115, Until Discontinued, Routine Given 12/31/2021 4:12 PM EDT 80 mg Given 12/31/2021 2:15 AM EDT [address] (Cymbalta) capsule 60 mg 60 mg, Oral, DAILY, First dose on Wed12/31/21 at 0900, Until Discontinued, Routine Given 01/01/2022 9:05 AM EDT 60 mg Given 12/31/2021 9:40 AM EDT 60 mg empagliflozin (Jardiance) tablet 10 mg 10 mg, Oral, DAILY, First dose on Wed12/31/21 at 0900, Until Discontinued, This medication should not be given with reduced PO intake/fluid loss, severe illness, or in patients with ketonemia or ketouria. , Routine, This medication should be held for 3 days prior to surgery. Is there a planned procedure within 3 days? No, Indication for empagliflozin: heart failure (HFpEF or HFrEF), Is this a new initiation for patients with heart failure (HFpEF or HFrEF) with or without diabetes? No Given 01/01/2022 9:05 AM EDT 10 mg Given 12/31/2021 9:40 AM EDT 10 mg furosemide (Lasix) (10 mg/mL) injection 20 mg 20 mg, Intravenous, ONCE, 1 dose, On Wed12/31/21 at 0115 Given 12/31/2021 2:16 AM EDT 20 mg furosemide (Lasix) (10 mg/mL) injection 20 mg 20 mg, Intravenous, DAILY, First dose (after last reorder) on Wed01/01/22 at 0900, Until Discontinued Given 01/01/2022 9:05 AM EDT 20 mg gabapentin (Neurontin) capsule 300 mg 300 mg, Oral, NIGHTLY, First dose on Wed12/31/21 at 0130, Until Discontinued, Routine Given 12/31/2021 8:3 2 PM EDT 300 mg Given 12/31/2021 2:16 AM EDT 300 mg heparin (porcine) 50 units/mL in sodium chloride 0.45% 500 mL infusion 0-5,000 Units/hr (0-100 mL/hr), Intravenous, CONTINUOUS, Starting on Wed12/30/21 at 2345, Until Wed12/31/21 at 0725, Begin infusion at 1,000 units per hr [...] Level - Per Protocol, Routine New Bag 12/30/2021 11:18 PM EDT 1,000 Units/hr 20 mL/hr ibuprofen (Advil) tablet 600 mg 600 mg, Oral, EVERY 6 HOURS PRN, Starting on Wed12/31/21 at 1614, Until Aura 01/01/22 at 1624, Pain, Administer orally with milk or food to minimize GI irritation. Maximum dose of 3,200 mg from all sources in 24 hours, Routine Given 12/31/2021 4:23 PM EDT 600 mg rOPINIRole (Requip) tablet 1 mg 1 mg, Oral, 2 TIMES DAILY, First dose (after last modification) on Wed12/31/21 at 1600, Until Discontinued, Routine Given 12/31/2021 8:32 PM EDT 1 mg Given 12/31/2021 4:12 PM EDT 1 mg sodium chloride 0.9 % (flush) (BD PosiFlush Normal Saline 0.9) flush 5 mL 5 mL, Intravenous, 2 TIMES DAILY, First dose on Wed12/30/21 at 2345, Until Discontinued, Routine Given 01/01/2022 9:06 AM EDT 5 mLs Given 12/31/2021 9:00 PM EDT 5 mLs Given 12/31/2021 9:40 AM EDT 5 mLs sodium chloride 0.9 % (flush) (BD PosiFlush Normal Saline 0.9) flush 5 mL 5 mL, Intravenous, 2 TIMES DAILY, First dose on Wed12/30/21 at 2345, Until Discontinued, Routine Given 12/31/2021 2:18 AM EDT 5 mLs topiramate (Topamax) tablet 100 mg 100 mg, Oral, NIGHTLY, First dose on Wed12/31/21 at 2100, Until Discontinued, DO NOT SPLIT, CRUSH OR OPEN, Routine Given 12/31/2021 8:43 PM EDT 100 mg traZODone (Desyrel) tablet 50 mg 50 mg, Oral, NIGHTLY, First dose (after last modification) on Wed12/31/21 at 0230, Until Discontinued, Routine Given 12/31/2021 8:32 PM EDT 50 mg Given 12/31/2021 2:25 AM EDT 50 mg documented in this encounter Active and Recently Administered Medications Times are shown in EDT. Scheduled Medication Order 12/30/2021 12/31/2021 01/01/2022 atorvastatin (Lipitor) tablet 80 mg 80 mg, Oral, EVERY EVENING, First dose on Wed12/31/21 at 0115, Until Discontinued, Routine 0215 (Given - Provider: Patricia Jacobs RN)1612 (Given - Provider: Angelina Oquendo, ERWIN) DULoxetine DR (Cymbalta) capsule 60 mg 60 mg, Oral, DAILY, First dose on Wed12/31/21 at 0900, Until Discontinued, Routine 0940 (Given - Provider: Angelina Oquendo RN) 0905 (Given - Provider: Angelina Oquendo RN) empagliflozin (Jardiance) tablet 10 mg 10 mg, Oral, DAILY, First dose on Wed12/31/21 at 0900, Until Discontinued, This medication should not be given with reduced PO intake/fluid loss, severe illness, or in patients with ketonemia or ketouria. , Routine, This medication should be held for 3 days prior to surgery. Is there a planned procedure within 3 days? No, Indication for empagliflozin: heart failure (HFpEF or HFrEF), Is this a new initiation for patients with heart failure (HFpEF or HFrEF) with or without diabetes? No 0940 (Given - Provider: Angelina Oquendo RN) 09 (Given - Provider: Angelina Oquendo RN) furosemide (Lasix) (10 mg/mL) injection 20 mg (COMPLETED) 20 mg, Intravenous, ONCE, 1 dose, On Wed12/31/21 at 0115 021 (Given - Provider: Patricia Jacobs RN) furosemide (Lasix) (10 mg/mL) injection 20 mg 20 mg, Intravenous, DAILY, First dose (after last reorder) on Wed01/01/22 at 0900, Until Discontinued 904 (Given - Provid er: Angelina Oquendo RN) gabapentin (Neurontin) capsule 300 mg 300 mg, Oral, NIGHTLY, First dose on Wed12/31/21 at 0130, Until Discontinued, Routine 021 (Given - Provider: Patricia Jacobs RN)2031 (Given - Provider: Patricia Jacobs RN) rOPINIRole (Requip) tablet 1 mg 1 mg, Oral, 2 TIMES DAILY, First dose (after last modification) on Wed12/31/21 at 1600, Until Discontinued, Routine 1612 (Given - Provider: Angelina Oquendo RN)2031 (Given - Provider: Patricia Jacobs RN) sodium chloride 0.9 % (flush) (BD PosiFlush Normal Saline 0.9) flush 5 mL 5 mL, Intravenous, 2 TIMES DAILY, First dose on Wed12/30/21 at 2345, Until Discontinued, Routine 0219 (Given - Provider: Patricia Jacobs RN)09 (Given - Provider: Angelina Oquendo RN)2099 (Given - Provider: Patricia Jacobs RN) 0906 (Given - Provider: Angelina Oquendo RN) sodium chloride 0.9 % (flush) (BD PosiFlush Normal Saline 0.9) flush 5 mL (CANCELED) 5 mL, Intravenous, 2 TIMES DAILY, First dose on Wed12/30/21 at 2345, Until Discontinued, Routine 0218 (Given - Provider: Patricia Jacobs RN) topiramate (Topamax) tablet 100 mg 100 mg, Oral, NIGHTLY, First dose on Wed12/31/21 at 2100, Until Discontinued, DO NOT SPLIT, CRUSH OR OPEN, Routine 2042 (Given - Provider: Patricia Jacobs RN) traZODone (Desyrel) tablet 50 mg 50 mg, Oral, NIGHTLY, First dose (after last modification) on Wed12/31/21 at 0230, Until Discontinued, Routine 224 (Given - Provider: Patricia Jacobs RN)2031 (Given - Provider: Patricia Jacobs RN) Continuous Medication Order 12/30/2021 12/31/2021 01/01/2022 heparin (porcine) 50 units/mL in sodium chloride 0.45% 500 mL infusion (CANCELED)(Linked Group 1) 0-5,000 Units/hr (0-100 mL/hr), Intravenous, CONTINUOUS, Starting on Wed12/30/21 at 2345, Until Wed12/31/21 at 0725, Begin infusion at 1,000 units per hr [...] Heparin UFH Level - Per Protocol, Routine 9130 (New Bag - Provider: Patricia Jacobs RN) 0719 (Stopped - Provider: Angelina Oquendo RN) PRN Medication Order 12/30/2021 12/31/2021 01/01/2022 ibuprofen (Advil) tablet 600 mg 600 mg, Oral, EVERY 6 HOURS PRN, Starting on Wed12/31/21 at 1614, Until Aura 01/01/22 at 1624, Pain, Administer orally with milk or food to minimize GI irritation. Maximum dose of 3,200 mg from all sources in 24 hours, Routine 1623 (Given - Provider: Angelina Oquendo, ERWIN) lidocaine (Xylocaine) 1% (10 mg/mL) injection 3 mg 3 mg (0.3 mL), Subcutaneous, ONCE PRN, 1 dose, Starting on Wed12/30/21 at 2252, Until Aura 01/01/22 at 1624, for discomfort with PIV insertion, Routine nitroGLYcerin (Nitrostat) disintegrating tablet 0.4 mg 0.4 mg, Sublingual, EVERY 5 MIN PRN, Starting on Wed12/30/21 at 2252, Until Aura 01/01/22 at 1624, Chest pain, May repeat every 5 minutes [...] Intravenous, EVERY 1 MIN PRN, Starting on Wed12/30/21 at 2252, Until Wed01/01/22 at 1624, flush, Flush pertains to all indwelling lines. 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
--- OUTSIDE RECORDS SUMMARY | 2023-09-20 14:38 | XMS_ITS | Encounter Summary ---
Author Organization [place] [address] Care Team Providers Care Financial Management Name Role Phone Polo Pearce Primary Care Provider [phone] Encounter Details Date Type Department Care Team (Late st Contact Info) Description 12/30/2021 External [place] [address] Social History Tobacco Use Types Packs/Day Years [...] AM EDT Tech [place] [phone] Jose Cook 10/08/2023 9:30 AM EDT Office Visit [place] [phone] MD [facility] [place] [address] 10/21/2023 10:30 AM EDT Appointment [place] [address] Mary Reyes [facility] [address] 10/21/2023 11:30 AM EDT Appointment Nuclear Medicine at [place] [phone] Mary Reyes [facility] [place] [address] 10/21/2023 12:30 PM EDT Appointment Nuclear Medicine at [address] Mary Reyes [facility] [place] [address] 10/21/2023 1:30 PM EDT Appointment [place] [address] Mary Reyes [facility] [place] [address] 10/21/2023 2:30 PM EDT Appointment [place] [address] Mary Reyes [facility] [place] [address] 10/26/2023 4:00 PM EDT Office Visit Cardiology at [address] [phone] Jaspreet Kinsey MD [facility] [place] [address] 10/28/2023 9:00 AM EDT Office Visit [place] [address] 10/29/2023 10:00 AM EDT Clinical Support [place] [address] 10/29/2023 10:15 AM EDT Procedure visit [place] [address] 11/01/2023 5:00 PM EDT Office Visit Gastroenterology at [place] [phone] Selene Browning, PhD [facility] [place] [address] 11/22/2023 4:40 PM EDT Office Visit Cardiology at [place] [phone] Porsha Mcdaniels MD [facility] [place] [address] 12/13/2023 10:00 AM EDT Clinical Support Gastroenterology at [place] [phone] Lucero Romero, RD [facility] [place] [place] [address] documented as of this encounter Procedures Procedure Name Priority Date/Time Associated Diagnosis Comments ECG SCAN Routine 12/30/2021 documented in this encounter Results * Scan Doc: ECG (12/30/2021) Historical Provider MD FLEMING MGR SCAN EX T ORDR/RSLT documented in this encounter Visit Diagnoses Not on filedocumented in this encounter Care Teams Financial Management Relationship Specialty Start Date End Date Polo Pearce PA [address] [place] [address] PCP - General Internal Medicine 06/09/21 documented as of this encounter
--- OUTSIDE RECORDS SUMMARY | 2023-09-20 14:38 | XMS_ITS | Encounter Summary ---
Author Organization [facility] [place] [address] Care Team Providers Care Sanitation Truck Driver Name Role Phone Polo Pearce Primary Care Provider [phone] Encounter Details Date Type Department Care Team (Late st Contact Info) Description 03/10/2022 External [place] [address] Social History Tobacco Use Types Packs/Day Years [...] AM EDT Tech [place] [phone] Jose Cook 10/08/2023 9:30 AM EDT Office Visit Vascular [place] [phone] MD [facility] [place] [address] 10/21/2023 10:30 AM EDT Appointment Nuclear [place] [address] Mary Reyes [facility] [place] [address] 10/21/2023 11:30 AM EDT Appointment Nuclear Medicine at [address] aMry Reyes [facility] [address] 10/21/2023 12:30 PM EDT Appointment Nuclear Medicine at [address]1000 Mary Reyes [facility] [address] 10/21/2023 1:30 PM EDT Appointment [place] [address] Mary Reyes [facility] [place] [address] 10/21/2023 2:30 PM EDT Appointment [place] [address] Mary Reyes [facility] [place] [address] 10/26/2023 4:00 PM EDT Office Visit Cardiology at [address] [phone] Jaspreet Kinsey MD [facility] [place] [address] 10/28/2023 9:00 AM EDT Office [place] [address] 10/29/2023 10:00 AM EDT Clinical [place] [address] 10/29/2023 10:15 AM EDT Procedure [place] [address] 11/01/2023 5:00 PM EDT Office Visit Gastroenterology at [place] [phone] Selene Browning, PhD [facility] [place] [address] 11/22/2023 4:40 PM EDT Office Visit Cardiology at [address] [phone] Porsha Mcdaniels MD [facility] [place] [address] 12/13/2023 10:00 AM EDT Clinical Support Gastroenterology at [place] [phone] Lucero Romero, RD [facility] [place] [address] documented as of this encounter Procedures Procedure Name Priority Date/Time Associated Diagnosis Comments ECG SCAN Routine 03/10/2022 documented in this encounter Results * Scan Doc: ECG (03/10/2022) Historical Provider MEDIA MGR SCAN EX T ORDR/RSLT documented in this encounter Visit Diagnoses Not on filedocumented in this encounter Care Teams Sanitation Truck Driver Relationship Specialty Start Date End Date Polo Pearce PA [address] [place] [address] PCP - General Internal Medicine 4/4/22 documented as of this encounter
--- OUTSIDE RECORDS SUMMARY | 2023-09-20 14:38 | XMS_ITS | Encounter Summary ---
[place] [address] Care Team Providers Care Political Geographer Name Role Phone Polo Pearce Primary Care Provider [phone] Encounter Details Date Type Department Care Team (Late st Contact Info) Description 03/11/2022 Telephone Cardiology at [address] [phone] Mary Motta, RN Social History Tobacco Use Types Packs/Day [...] Telephone Encounter - Mary Motta RN - 03/11/2022 8:40 AM ESTSummary: Pre Procedure Call: SVT Ablation EP PRESS OPERATOR [employer] BLOCKS COORDINATION CHECKLIST Patient Name: Indira Roque Patient Performing Neuroscientist: Jed Tovar Referring Provider: Sobeida Jimenez Date of Procedure: 03/23/22 Arrival Time/ Case Time: 6:00 am / 7:30 am Check In Location: [facility] Machine Operator Desk 4W Date Patient was Called: 03/11/22 Procedure: SVT Ablation Company: [employer] Type: RF Orders: Yes Lab Orders: Yes - orders pended for Dr. Tovar's signature Anesthesia: GA Discharge Plan/Disposition: OVERNIGHT/SSU Med Instructions: DIURETIC - hold Lasix & spironolactone the AM of procedure BB/CCB - hold metoprolol beginning 5 days prior to procedure (03/18 - 03/23) OTHER - hold Jardiance for 72 hrs prior to procedure (03/20-03/23) Anticoag Type: N/A COVID TEST?: No Contrast Allergy: No DM: No Coming from an assisted living facility?: No Any recent S/S of infection (fevers, on oral ABX)?: No Other Instructions: Clear liquids (water, apple juice, radha annita) OK up until 2 hrs prior to procedure, nothing to eatafter midnight on day of procedure.Same Day will call 03/20/22. If applicable will bring CPAP from home. Will be staying overnight , understands that they will need delivery driver/customer service on day of discharge Notified pt that Esqueda catheter may be placed on day of procedure depending on type & duration of case. Special Notes/Considerations: Given fequent ED visits to [facility] within the past 4 days, will contact pt next week (03/18) to see howsymptoms are progressing. If still having pain, issues will need to reschedule procedure per Dr. Tovar documented in this encounter Plan of Treatment Upcoming Encounters Date Type Department Care Team (Late st Contact Info) Description 10/08/2023 8:30 AM EDT Tech [place] [address] Jose Cook 10/08/2023 9:30 AM EDT Office [place] [phone] MD [facility] [place] [address] 10/21/2023 10:30 AM EDT Appointment [place] [address] Calvino, Mary M, [facility] [place] [address] 10/21/2023 11:30 AM EDT Appointment Nuclear Medicine at [place] [phone] Mary Reyes [facility] [address] 10/21/2023 12:30 PM EDT Appointment Nuclear Medicine at [place] [phone] Mary Reyes [facility] [place] [address] 10/21/2023 1:30 PM EDT Appointment Nuclear Medicine at [place] [phone] Mary Reyes [facility] [place] [address] 10/21/2023 2:30 PM EDT Appointment [place] [address] Mary Reyes [facility] [place] [address] 10/26/2023 4:00 PM EDT Office Visit Cardiology at [address] [phone] Jaspreet Kinsey MD [facility] [place] [address] 10/28/2023 9:00 AM EDT Office [place] [address] 10/29/2023 10:00 AM EDT Clinical Support [place] [address] 10/29/2023 10:15 AM EDT Procedure [place] [address] 11/01/2023 5:00 PM EDT Office [place] [phone] Selene Browning, PhD [facility] [place] [address] 11/22/2023 4:40 PM EDT Office Visit Cardiology at [address] [phone] Porsha Mcdaniels MD [facility] [place] [place] [address] 12/13/2023 10:00 AM EDT Clinical [place] [address] Lucero Romero, [place] [facility] [place] [address] documented as of this encounter Visit Diagnoses Not on filedocumented in this encounter Care Teams Political Geographer Relationship Specialty Start Date End Date Polo Pearce PA [address] [place] [address] PCP - General Internal Medicine 06/09/21 documented as of this encounter
--- OUTSIDE RECORDS SUMMARY | 2023-09-20 14:38 | XMS_ITS | Encounter Summary ---
Author Organization [facility] Address [facility] [place] [address] Care Team Providers Care Printer Maintainer Name Role Phone Polo Pearce Primary Care Provider [phone] Encounter Details Date Type Department Care Team (Late st Contact Info) Description 08/08/2021 Orders Only Cardiology at [address] [phone] Umberto Joy PA [facility] [place] [address] AVNRT (AV makayla re-entry tachycardia) (Primary Dx); Heart failure with preserved ejection fraction, unspecified [...] AM EDT Tech [place] [address] Jose Cook 10/08/2023 9:30 AM EDT Office Visit [place] [phone] MD [facility] [place] [address] 10/21/2023 10:30 AM EDT Appointment Nuclear Medicine at [address]1000 Mary Reyes [facility] [place] [address] 10/21/2023 11:30 AM EDT Appointment Nuclear Medicine at [address]1000 Mary Reyes [facility] [place] [address] 10/21/2023 12:30 PM EDT Appointment Nuclear Medicine at [place] [phone] Mary Reyes [facility] [place] [address] 10/21/2023 1:30 PM EDT Appointment Nuclear Medicine at [place] [phone] Mary Reyes [facility] [place] [address] 10/21/2023 2:30 PM EDT Appointment [place] [address] Mary Reyes [facility] [place] [address] 10/26/2023 4:00 PM EDT Office Visit Cardiology at [address] [place] [address] Jaspreet Kinsey MD [facility] [place] [address] 10/28/2023 9:00 AM EDT Office [place] [address] 10/29/2023 10:00 AM EDT Clinical [place] [address] 10/29/2023 10:15 AM EDT Procedure [place] [address] 11/01/2023 5:00 PM EDT Office Visit [place] [phone] Selene Browning, PhD [facility] [place] [address] 11/22/2023 4:40 PM EDT Office Visit Cardiology at [address] [phone] Porsha Mcdaniels MD [facility] [place] [address] 12/13/2023 10:00 AM EDT Clinical Support [place] [address] [facility] [place] [address] documented as of this encounter Visit Diagnoses Diagnosis AVNRT (AV makayla re-entry tachycardia)- Primary Other specified cardiac dysrhythmias Heart failure with preserved ejection fraction, unspecified HF chronicity SVT (supraventricular tachycardia) Other specified cardiac dysrhythmias documented in this encounter Care Teams Printer Maintainer Relationship Specialty Start Date End Date Polo Pearce PA [address] [place] [address] PCP - General Internal Medicine 06/09/21 documented as of this encounter
--- OUTSIDE RECORDS SUMMARY | 2023-09-20 14:38 | XMS_ITS | Encounter Summary ---
Author Organization [facility] [place] [address] Care Team Providers Care Process Design Chemical Engineer Name Role Phone Polo Pearce Primary Care Provider [phone] Reason for Visit * Consultation (Routine) - Closed Specialty Diagnoses / Procedures Referred By Contact Referred To Contact Electrophysiology / Cardiology Diagnoses Supraventricular tachycardia evaluation for AVNRT ablation due to symptomatic SVT with myocardial injury Sandy Serna MD [facility] [place] [address] [facility] Cardiology [address] [place] [phone] Referral ID Status Reason Start Date Expiration Date V isits Requested Visits Authorized [id number] Closed Consult, Test & Treat 06/14/2021 06/14/2022 1 1 Encounter Details Date Type Department Care Team (Late st Contact Info) Description 08/19/2021 3:00 PM EDT Office Visit Cardiology at [address] [phone] Umberto Joy PA [facility] [place] [address] AVNRT (AV makayla re-entry tachycardia) Social History Tobacco Use Types Packs/Day [...] Sign Reading Time Taken Comments Blood Pressure 103/53 08/19/2021 2:44 PM EDT Pulse 56 08/19/2021 2:44 PM EDT Temperature - - Respiratory Rate - - Oxygen Saturation 98% 08/19/2021 2:44 PM EDT Inhaled Oxygen Concentration - - Weight 95.3 kg (210 lb) 08/19/2021 2:44 PM EDT Height 162.6 cm (5' 4) 08/19/2021 2:44 PM EDT Body Mass Index 36.05 08/19/2021 2:44 PM EDT documented in this encounter Progress Notes * Umberto Joy PA - 08/19/2021 3:00 PM EDT Images from the original note were not included. Subjective Patient ID: Indira Roque is a 51 y.o. female. HPI 51yo woman referred by Dr. Kinsey for evaluation and treatment of SVT. She was seen by Dr. Kinsey in follow up to recent hospitalization(06/13/2021) for Type II NSTEMI thought to have been provoked by rapidly conducted SVT that terminated spontaneously. At that time she was started on metoprolol succinate 25mg PO daily. She has not had recurrence since then but has some interest in definitive management. She has had some palpitations in the past, without sustained episodes. June 2021 Zio revealed episodes of SVT, c/w AVNRT and no atrial fibrillation or flutter. She has a hx of some episodes of chest tightness and RAVI, with abnormal EKGs(ST T-wave abnormalities) but clean cors at [facility] in 2019 and essentially normal echocardiogram(LVEF 61%, LA mildly dilated). Other hx is significant for HFpEF, exercise induced asthma, depression, endometriosis s/p hysterectomy, insomnia, migraines, obesity and obstructive sleep apnea using CPAP. She denies any known cardiac disease or documented risk factors but does report a strong family history of CAD in her father(stents and pacemaker placement). ??An NM PET scan is anticipated in the future. She lives in [place], [place] and has seen Dr. Kinsey in [place]. Patient Active Problem List Diagnosis ??? 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 Obesity ??? Dyslipidemia ??? MARYLOU on CPAP ??? Restless leg syndrome ??? Insomnia ??? (HFpEF) heart failure with preserved ejection fraction Overview Note: 05/2021: subacute, presented to [facility] with RUQ pain, weight gain, and progressive dyspnea. Noted to caryr most fluid in abdomen ??? Asthma ??? Rhinitis, nonallergic, chronic Overview Note: Review of Systems Constitutional: Negative for chills, diaphoresis, fatigue and fever. Respiratory: Negative for chest tightness and shortness of breath. Cardiovascular: Positive for palpitations. Negative for chest pain and leg swelling. Gastrointestinal: Negative for diarrhea, nausea and vomiting. Genitourinary: Negative for dysuria and frequency. Neurological: Positive for light-headedness. Negative for syncope. Social History Socioeconomic History ??? 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 ??? fluticasone propionate (FLONASE) 50 mcg/actuation Murray, Suspension 1 spray by Each Nare route [...] 4 hours as needed. Use with spacer Physical Exam Vitals and nursing note reviewed. Constitutional: Appearance: Normal appearance. Cardiovascular: Rate and Rhythm: Normal rate and regular rhythm. Pulses: Normal pulses. Heart sounds: Normal heart sounds. Pulmonary: Effort: Pulmonary effort is normal. Breath sounds: Normal breath sounds. Skin: General: Skin is warm and dry. Neurological: General: No focal deficit present. Mental Status: She is alert and oriented to person, place, and time. 12 lead EK08/19/2021 Sinus bradycardia @ 57; MI 176; QRS 84; QTc 443ms Zio: 06/09/2021 Predominant rhythm : sinus rhythm , Range 38-108 BPM , Average rate 57 BPM Atrial fibrillation : None seen Ectopic beats: There were rare atrial premature beats, couplets and triplets (<1% each) There were 21 supraventricular runs the fastest lasting 1 hour 49 mins with a max rate of 184 bpm (avg 153 bpm); the fastest run was also the longest. 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 Left ventricle is of normal size. [...] No significant change from prior in 08/2019. LHC: 08/2019 Clean coronaries Assessment and Plan 51yo woman with hx of intermittent palpitations and recent more prolonged episode found to be narrow complex tachycardia @ 150bpm that terminated spontaneously. This is reported to have been c/w possible AVNRT. She sustained a Type II NSTEMI with this and was treated with metoprolol. Zio patch revealed narrowcomplex short R-P tachycardia c/w AVNRT. Left heart catheterization in 2019 demonstrated clean coronaries and June 2021 echocardiogrma revealed preserved LVEF of 61% with normal valvular function and moderate LA dilation. We reviewed her history and diagnostic findings with emphasis on teletypesetter monitor data. We also discussed risk/benefit of EPS/ablation and she is interested though I think would be useful to obtain NM PET data prior to proceeding. Plan: EP clinic follow up in 2-3 months with EP attending. Telehealth OK. Provider JOCY Viera EP Consult attending physician: Eric Tovar MD documented in this encounter Plan of Treatment Upcoming Encounters Date Type Department Care Team (Late st Contact Info) Description 10/08/2023 8:30 AM EDT Tech [place] [address] Jose Cook 10/08/2023 9:30 AM EDT Office Visit Vascular Surgery at [place] [phone] MD [facility] [place] [address] 10/21/2023 10:30 AM EDT Appointment Nuclear Medicine at [address] Mary Reyes [facility] [place] [address] 10/21/2023 11:30 AM EDT Appointment Nuclear Medicine at [place] [phone] Mary Reyes [facility] [place] [address] 10/21/2023 12:30 PM EDT Appointment Nuclear Medicine at [place] [phone] Mary Reyes [facility] [place] [address] 10/21/2023 1:30 PM EDT Appointment [place] [address] Mary Reyes [facility] [place] [address] 10/21/2023 2:30 PM EDT Appointment [place] [address] Mary Reyes [facility] [place] [address] 10/26/2023 4:00 PM EDT Office Visit Cardiology at [address] [phone] Jaspreet Kinsey MD [facility] [place] [address] 10/28/2023 9:00 AM EDT Office [place] [address] 10/29/2023 10:00 AM EDT Clinical Support [place] [address] 10/29/2023 10:15 AM EDT Procedure [place] [address] 11/01/2023 5:00 PM EDT Office [place] [phone] Selene Browning, PhD [facility] [place] [address] 11/22/2023 4:40 PM EDT Office Visit Cardiology at [address] [phone] Porsha Mcdaniels MD [facility] [address] 12/13/2023 10:00 AM EDT Clinical [place] [phone] [facility] [place] [address] documented as of this encounter Procedures Procedure Name Priority Date/Time Associated Diagnosis Comments EKG 12-LEAD Routine 08/19/2021 2:54 PM EDT AVNRT (AV makayla re-entry tachycardia) documented in this encounter Results * EKG 12 Lead (08/19/2021 2:54 PM EDT) Ventricular rate 57 BPM MUSE SYSTEM Atrial Rate 57 BPM MUSE SYSTEM P-R Interval 176 ms MUSE SYSTEM QRS Duration 84 ms MUSE SYSTEM Q-T Interval 456 ms MUSE SYSTEM QTC Calculated (Bezet) 443 ms MUSE SYSTEM Calculated P Bayard 49 degrees MUSE SYSTEM Calculated R Bayard 63 degrees MUSE SYSTEM Calculated T Bayard -60 degrees MUSE SYSTEM INTERPRETATION Sinus bradycardia Possible Left atrial enlargement Marked ST abnormality, possible inferior subendocardial injury Abnormal ECG When compared with ECG of 23-JUL-2021 09:02, Nonspecific T wave abnormality now evident in Inferior leads T wave inversion now evident in Anterior leads Confirmed by MD Maximino, Clay ([id number]) on 08/19/2021 3:53:23 PM MUSE SYSTEM 08/19/2021 2:54 PM EDT 08/19/2021 3:53 PM EDT Dave Tavares MD ECG ORDERABLES MUSE SYSTEM documented in this encounter Visit Diagnoses Diagnosis AVNRT (AV makayla re-entry tachycardia) Other specified cardiac dysrhythmias documented in this encounter Care Teams Process Design Chemical Engineer Relationship Specialty Start Date End Date Polo Pearce PA [address] [place] [address] PCP - General Internal Medicine 06/09/21 documented as of this encounter
--- OUTSIDE RECORDS SUMMARY | 2023-09-20 14:38 | XMS_ITS | Encounter Summary ---
Author Organization [facility] [place] [address] Care Team Providers Care Buyer Broker Name Role Phone Polo Pearce Primary Care Provider [phone] Encounter Details Date Type Department Care Team (Late st Contact Info) Description 06/13/2021 [place] [address] Ralf Mejia MD [facility] [place] [address] Social History Tobacco Use Types Packs/Day Years [...] encounter Miscellaneous Notes * Telephone Encounter - Ralf Mejia MD - 06/13/2021 12:05 AM EDT Telephone Triage Note Initial contact date: 06/13/2021 Initial contact time: 12:05 AM Referring provider: Jasiel Caicedo MD Patient location: [facility] Past medical history: HLD HTN Asthma Depression ?Micrvascular disease SVT MARYLOU Diastolic heart failure History 51-year-old female with history as noted above who is just admitted to [facility] for evaluation of angina with discharge 06/08/2021. At that time she initially presented to [facility] where she was noted to have a troponin I of 406 which was flat at 411 on repeat and an elevated BNP. EKG showed nonspecific ST changes in the inferolateral leads. She was transferred to [facility] for further evaluation where [...] Jardiance given evidence of diastolic heart failure withvolume overload and had a Zio patch placed. Today she had acute onset of chest pain for which EMS was called. On arrival there they did A telemetry strip showing SVT at a rate of 150. This was a single lead strip. This resolved by the time she arrived to the emergency room at which point her chest pain had also resolved. EKG showed similar nonspecific changes to her last EKG. Her troponin was elevated slightly more than her prior visit there with a troponin I of 629. Pertinent diagnostic findings: Vitals: BP 109/58 HR 82 RR 12 SaO2 97% room air EKG: Upsloping inferolateral ST depressions unchanged from prior, normal sinus rhythm with a rate of 80 bpm. Troponin 629 (ULN 50) Discussed with emergency room physician that given her resolution of chest pain in the clear SVT noted at the time of her symptoms with a mildly elevated troponin I and her recent work-up here at [facility] which did not include an ischemic evaluation but did include a transesophageal echocardiogramserial EKGs and serial negative troponins that further work-up at [facility] may be appropriate. Suspect that her symptoms are driven by her SVT given the rate of 150 may be atrial flutter versus an AVNRT.I do not clearly see any preceding P waves and thus atrial tachycardia is less likely. A stress test may be appropriate to rule out large vessel ischemia although suspect this is less likely given her clean coronary cath back in 2019. Would be reasonable start her on metoprolol for this SVT as wellas possible microvascular angina. Plan: -Continue management at [facility]. -Recommend stress test at [facility]. -Start metoprolol succinate 25 mg daily with follow-up with cardiology and up titration. -Continue medications as prescribed from her recent discharge. -Planning to get serial troponins and EKGs. If these are markedly changing can reassess and consider transfer to [facility] for further evaluation. Ralf Mejia MD 06/13/2021 12:05 AM documented in this encounter Plan of Treatment Upcoming Encounters Date Type Department Care Team (Late st Contact Info) Description 10/08/2023 8:30 AM EDT Tech Visit Vascular Lab at [place] [phone] Jose Cook 10/08/2023 9:30 AM EDT Office Visit [place] [phone] MD [facility] [place] [address] 10/21/2023 10:30 AM EDT Appointment Nuclear Medicine at [place] [phone] Mary Reyes [facility] [place] [address] 10/21/2023 11:30 AM EDT Appointment [place] [phone] Mary Reyes [facility] [place] [address] 10/21/2023 12:30 PM EDT Appointment [place] [phone] Mary Reyes [facility] [place] [address] 10/21/2023 1:30 PM EDT Appointment [place] [phone] Mary Reyes APRN [facility] [place] [address] 10/21/2023 2:30 PM EDT Appointment Nuclear Medicine at [place] [phone] Mary Reyes APRN [facility] [place] [address] 10/26/2023 4:00 PM EDT Office Visit Cardiology at [address] [phone] Jaspreet Kinsey MD [facility] [place] [address] 10/28/2023 9:00 AM EDT Office Visit [place] [address] 10/29/2023 10:00 AM EDT Clinical Support [place] [address] 10/29/2023 10:15 AM EDT Procedure visit [place] [address] 11/01/2023 5:00 PM EDT Office Visit Gastroenterology at [place] [phone] Selene Browning, PhD [facility] [place] [address] 11/22/2023 4:40 PM EDT Office Visit Cardiology at [address] [phone] Porsha Mcdaniels MD [facility] [place] [address] 12/13/2023 10:00 AM EDT Clinical Support [place] [address] Lucero Romero, ALVA [facility] [place] [address] documented as of this encounter Visit Diagnoses Not on filedocumented in this encounter Care Teams Buyer Broker Relationship Specialty Start Date End Date Polo Pearce PA [address] [place] [address] PCP - General Internal Medicine 06/09/21 documented as of this encounter
--- OUTSIDE RECORDS SUMMARY | 2023-09-20 14:38 | XMS_ITS | Encounter Summary ---
Author Organization [facility] Address [facility] [place] [address] Care Team Providers Care Medical Microbiologist Name Role Phone Polo Pearce Primary Care Provider [phone] Reason for Visit * Reason Comments Congestive Heart Failure Encounter Details Date Type Department Care Team (Late st Contact Info) Description 03/16/2022 3:20 PM EST Office Visit Cardiology at [address] [phone] Jaspreet Kinsey MD [facility] [place] [address] Heart failure with preserved ejection fraction, unspecified [...] Sign Reading Time Taken Comments Blood Pressure 114/64 03/16/2022 3:03 PM EST Pulse 51 03/16/2022 3:03 PM EST Temperature - - Respiratory Rate - - Oxygen Saturation - - Inhaled Oxygen Concentration - - Weight 98.9 kg (218 lb) 03/16/2022 3:03 PM EST Height 162.6 cm (5' 4) 03/16/2022 3:03 PM EST Body Mass Index 37.42 03/16/2022 3:03 PM EST documented in this encounter Progress Notes * Jaspreet Kinsey MD - 03/16/2022 3:20 PM EST Images from the original note were not included. Subjective: Patient ID: Indira Roque is a 52 y.o. female who presents on follow-up for: Chief Complaint Patient presents with ??? Congestive Heart Failure HPI Last seen by me 07/2021, at which time referral to EP was placed for consideration of SVT ablation. Since then, she has had multiple admission to the hospital with multiple symptoms including abdominal pain, left hemithorax pain, and nyha iii dyspnea. She states when she was discharged from [facility] inOctober she felt OK, but shortly thereafter started redeveloping significant dyspnea, accompanied by weight gain. States she does not think she has significant UOP compared to baseline with lasix 20mg Current Outpatient Medications: ??? omeprazole (PriLOSEC) 20 mg Capsule, Delayed Release(E.C.), Take 20 mg by mouth once as needed.Infrequent use, Disp: , Rfl: ??? spironolactone (Aldactone) 25 mg Tablet, Take 25 mg by mouth daily., Disp: , Rfl: ??? prochlorperazine (Compazine) 5 mg Tablet, Take 5 mg by mouth every 6 hours as needed for Nausea., Disp: , Rfl: ??? erenumab-aooe (Aimovig Autoinjector) 70 mg/mL Auto-Injector, Inject subcutaneously every 30 days., Disp: , Rfl: ??? metoprolol succinate XL (Toprol-XL) 25 mg Tablet Sustained Release 24 hr, Take 1 tablet by mouth daily., Disp: 30 tablet, Rfl: 2 ??? nitroGLYcerin (Nitrostat) 0.4 mg Tablet, Sublingual, Place 1 tablet under the tongue every 5 minutes as needed for Chest pain., Disp: 30 tablet, Rfl: 1 ??? empagliflozin (Jardiance) 10 mg Tablet, Take 1 tablet by mouth daily., Disp: 90 tablet, Rfl: 1 ??? atorvastatin (Lipitor) 80 mg Tablet, Take 1 tablet by mouth every evening., Disp: 90 tablet, Rfl: 3 ??? rOPINIRole (Requip) 1 mg Tablet, 2 times daily., Disp: , Rfl: ??? traZODone (Desyrel) 50 mg Tablet, TAKE 1 TO 2 TABLETS BY MOUTH AT BEDTIME, Disp: , Rfl: ??? diclofenac (VOLTAREN) 1 % Gel, APPLY TO SINGLE KNEE ANKLE OR FOOT SOLES TOES TOP OF FOOT ONCE DAILY, Disp: , Rfl: ??? loratadine (Claritin) 10 mg Tablet, Take 10 mg by mouth daily as needed., Disp: , Rfl: ??? fluticasone propionate (FLONASE) 50 mcg/actuation Kiron, Suspension, 1 spray by Each Nare routedaily., Disp: , Rfl: ??? gabapentin (Neurontin) 300 mg Capsule, Take 600 mg by mouth nightly., Disp: , Rfl: ??? topiramate (TOPAMAX) 50 mg Tablet, Take 100 mg by mouth nightly., Disp: , Rfl: ??? DULoxetine (CYMBALTA) 60 mg capsule, Take 60 mg by mouth daily., Disp: , Rfl: ??? albuterol (PROVENTIL HFA;VENTOLIN HFA) 90 mcg/Actuation inhaler, Inhale 2 puffs into the lungs every 4 hours as needed. Use with spacer, Disp: , Rfl: ??? bumetanide (Bumex) 1 mg Tablet, Take 1 tablet by mouth daily., Disp: 30 tablet, Rfl: 0 Patient Active Problem List Diagnosis ??? 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 Started on toprol ??? Obesity ??? Dyslipidemia ??? Obstructive sleep apnea syndrome ??? Insomnia ??? (HFpEF) heart failure with preserved ejection fraction 05/2021: subacute, presented to [facility] with RUQ pain, weight gain, and progressive dyspnea. Noted to caryr most fluid in abdomen ??? Restless legs ??? Asthma ??? Rhinitis, nonallergic, chronic Objective: BP 114/64 (BP Location (NBP): Left arm, Patient Position: Sitting, BP Cuff Sizes: Adult (25-34 cm)) Pulse 51 Ht 162.6 cm (5' 4) Wt 98.9 kg (218 lb) BMI 37.42 kg/m?? Gen: pleasant female in NAD Cor: morgan reg, s1/s2 of nl character and amplitude, no m/r/g. Estimated RAP 10- 11. Carotids with normal upstroke without bruit. Pulm: CTAB. Normal diaphragmatic movement without use of accessory muscles Assessment and Plan: (HFpEF) heart failure with preserved ejection fraction Likely with a bit of intravascular hypervolemia, [...] - MRA: aldactone 25 SVT (supraventricular tachycardia) For ablation later this month - continue toprol 25; can likely d/c after ablation RTC pending response to bumex Jaspreet Kinsey MD documented in this encounter Miscellaneous Notes * Assessment & Plan Note - Jaspreet Kinsey MD - 03/16/2022 3:43 PM EST Associated Problem(s): SVT (supraventricular tachycardia) For ablation later this month - continue toprol 25; can likely d/c after ablation * Assessment & Plan Note - Jaspreet Kinsey MD - 03/16/2022 3:40 PM EST Associated Problem(s): (HFpEF) heart failure with preserved ejection fraction Likely with a bit of intravascular hypervolemia, [...] AM EDT Tech Visit Vascular Lab at [place] [phone] Jose Cook 10/08/2023 9:30 AM EDT Office Visit Vascular Surgery at [place] [phone] MD [facility] [place] [address] 10/21/2023 10:30 AM EDT Appointment Nuclear Medicine at [address] Mary Reyes [facility] [place] [address] 10/21/2023 11:30 AM EDT Appointment Nuclear Medicine at [place] [phone] Mary Reyes [facility] [place] [address] 10/21/2023 12:30 PM EDT Appointment Nuclear Medicine at [place] [phone] Mary Reyes [facility] [place] [address] 10/21/2023 1:30 PM EDT Appointment [place] [address] Mary Reyes APRN [facility] [place] [address] 10/21/2023 2:30 PM EDT Appointment Nuclear Medicine at [place] [phone] Mary Reyes APRN [facility] [place] [address] 10/26/2023 4:00 PM EDT Office Visit Cardiology at [address] [phone] Jaspreet Kinsey MD [facility] [place] [address] 10/28/2023 9:00 AM EDT Office Visit G[place]ology [place] [address] 10/29/2023 10:00 AM EDT Clinical Support [place] [address] 10/29/2023 10:15 AM EDT Procedure visit Gastro[place]ology [place] [address] 11/01/2023 5:00 PM EDT Office Visit Gastroenterology at [place] [phone] Selene Browning, PhD [facility] [place] [address] 11/22/2023 4:40 PM EDT Office Visit Cardiology at [place] [phone] Porsha Mcdaniels MD [facility] [place] [address] 12/13/2023 10:00 AM EDT Clinical [place] [address] Lucero Romero, [place] [place] [address] documented as of this encounter Visit Diagnoses Diagnosis Heart failure with preserved ejection fraction, unspecified HF chronicity SVT (supraventricular tachycardia) Other specified cardiac dysrhythmias documented in this encounter Care Teams Medical Microbiologist Relationship Specialty Start Date End Date Polo Pearce PA [address] [place] [address] PCP - General Internal Medicine 06/09/21 documented as of this encounter
--- OUTSIDE RECORDS SUMMARY | 2023-09-20 14:38 | XMS_ITS | Encounter Summary ---
Author Organization [facility] Address [facility] [place] [address] Care Team Providers Care Hog Handler Name Role Phone Polo Pearce Primary Care Provider [phone] Reason for Visit * Reason Onset Date Comments Chest Pain 03/11/2022 Encounter Details Date Type Department Care Team (Late st Contact Info) Description 03/11/2022 Telephone Cardiology at [address] [phone] Jaspreet Kinsey MD [facility] [place] [address] Chest Pain Social History Tobacco Use Types [...] Telephone Encounter - Nilda Mayes RN - 03/12/2022 8:25 AM EST Verification of recent ER encounters for chest pain, UTI, URI symptoms Requesting discharge summary(s) from [facility] from this week. Plan: to determine the indication and goals for this follow up cardiology appointment. From consultation by [facility] with Vianey Mike on 03/10/2021: Patient's chest pain seems to be referred [...] has SVT ablation planned for March 23, 2022-- * Telephone Encounter - Brenda Callahan - 03/11/2022 4:08 PM EST Pt called to reschedule her missed appt in Jan with Dr. Kinsey. She is now on for Wednesday. She also said she has been in the hospital frequently for her heart. I asked her what was going on and when she was there. She said she was there Wednesday, Wednesday, and Wednesday with Troponin off the charts, chest pain, and blood in urine. Her number is [phone] should you have any questions. I looked in the chart and looks like we still need those records documented in this encounter Plan of Treatment Upcoming Encounters Date Type Department Care Team (Late st Contact Info) Description 10/08/2023 8:30 AM EDT Tech [place] [phone] Jose Cook 10/08/2023 9:30 AM EDT Office [place] [phone] MD [facility] [place] [address] 10/21/2023 10:30 AM EDT Appointment [place] [phone] Mary Reyes, [facility] [place] [address] 10/21/2023 11:30 AM EDT Appointment [place] [address] Mary Reyes [facility] [place] [address] 10/21/2023 12:30 PM EDT Appointment [place] [address] Mary Reyes [facility] [place] [address] 10/21/2023 1:30 PM EDT Appointment [place] [address] Mary Reyes, [facility] [place] [address] 10/21/2023 2:30 PM EDT Appointment [place] [address] Mary Reyes [facility] [place] [address] 10/26/2023 4:00 PM EDT Office Visit Cardiology at [address] [phone] Jaspreet Kinsey MD [facility] [place] [address] 10/28/2023 9:00 AM EDT Office [place] [address] 10/29/2023 10:00 AM EDT Clinical Support [place] [address] 10/29/2023 10:15 AM EDT Procedure visit [place] [address] 11/01/2023 5:00 PM EDT Office Visit Gastroenterology at [place] [phone] Selene Browning, PhD [facility] [address] 11/22/2023 4:40 PM EDT Office Visit Cardiology at [place] [phone] Porsha Mcdaniels MD [facility] [place] [address] 12/13/2023 10:00 AM EDT Clinical [place] [phone] Lucero Romero, [place] [place] [address] documented as of this encounter Visit Diagnoses Not on filedocumented in this encounter Care Teams Hog Handler Relationship Specialty Start Date End Date Polo Pearce PA [address] [place] [address] PCP - General Internal Medicine 06/09/21 documented as of this encounter
--- OUTSIDE RECORDS SUMMARY | 2023-09-20 14:39 | XMS_ITS | Encounter Summary ---
Author Organization [facility] Address [facility] [place] [address] Care Team Providers Care Sheeter Operator Name Role Phone Tim Rogers DNP Primary Care Provider [phone] Encounter Details Date Type Department Care Team (Latest Contact Info) Description 05/30/2021 9:30 AM EDT TH Visit (TeleHealth) [place] [address] Beto Miller MD [facility] [place] [address] Pleurisy with effusion; *History of COVID-19; Chronic cough; RAVI (dyspnea on exertion) Social History Tobacco Use Types Packs/Day Years Used Date Smoking Tobacco: Never Smokeless Tobacco: Never Alcohol Use Standard Drinks/Week Comments Never 0 (1 standard drink = 0.6 oz pur e alcohol) Sex and Gender Information Value Date Recorded Sex Assigned at Not on file Gender Identity Not on file Sexual Orientation Not on file documented as of this encounter Progress Notes * Beto Miller MD - 05/30/2021 9:30 AM EDT Images from the original note were not included. Pulmonary Telehealth Follow-Up Visit This visit replaces an in person visit due to the COVID-19 pandemic. Patient verbally consents to this visit and understands that this visit may be billed, similar to a clinic office visit. Date of Encounter: 05/30/21 PCP: Polo Pearce and Tim Rogers, AREA MANAGER [address] [place] [address] Pulmonary Background: ?? Cough, dyspnea, wheeze and intermittent sinusitis with peripheral eosinophilia and mediastinal adenopathy in August 2019. Some improvement by early 2020. Subjective: Last Visit My last contact with Indira was in October 2020. During that call we reviewed her chavis pulmonary test so far including: ?? CT chest from April 2020 largely unremarkable - the adenopathy seen on her August 2019 CT looksto have improved. ?? PFTs July 2020 mild restriction but normal diffusion ?? No clinical response to a trial of corticosteroid ?? Recent lab work shows resolution of the previously seen eosinophilia, KATHRINE 1: 80, normal SSA, SSB, Alcantar antibody, [employer] antibody, ANCA, MPO antibody, IA-3 antibody, serum RITCHIE, CBC, BMP and CRP ?? Echocardiogram shows severe dilatation of the left atrium August 2019 ?? Normal coronary arteries on cardiac catheterization August 2019 After this phone call I ordered a Ziopatch recoring but this resulted as The ziopatch was lost. Nodata collected. Interval History: Although symptoms were okay when we spoke last summer it sounds like pulmonary symptoms got worse almost immediately before began. Indira describes recurrent episodes of bronchitis and then a numberof pulmonary problems since. We reviewed these chronologically. In March 2021 she tested positive for Covid. I reviewed the chest x-ray done at [facility] at the time which showed bilateral hazy opacities (mild). Debbie was not hospitalized for Covid and seemed to make a short-term recovery but by late April was again struggling. She describes increased cough and dyspnea and went to the emergency room at [facility] May 02. I do not have that x-ray but Indira tells me it showed a left upper lobe opacity and she was treated with Augmentin. Things improved transiently but deteriorated again in May. She tells me most of May has been terrible. Headache, dyspnea, cough productive of white to yellow sputum and pleuritic left-sided chest pain which starts in the back and radiates around to the front. She says she can barely eat, cannot sleep has no energy and just feels awful. She also had some a bdominal pain and saw her primary care physician on May 27. She was sent to the emergency room and had a CT scan of the abdomen. I do not have these reports or images yet but apparently this showeda left pleural effusion. She was treated with doxycycline and sent home. Oxygen levels have been okay. Indira describes feeling cold and chills but has not checked her temperature. Doxycycline over t he last 2 or 3 days has made no difference. Examination: No formal examination as this was a telehealth visit. By phone patient speaking comfortably in fullsentences. Data Review: Decision Making/Plan: Impression: 1. Pleurisy with effusion 2. *History of COVID-19 Really hard to know what is going on here at present. Brandon had some pulmonary symptoms for about 18 months and despite a number of tests I do not have a definitive diagnosis. She seemed to be doing better in mid 2020 but the last 3 months in particular have been characterized by COVID-19 infection and now abnormal chest imaging. I think it is really important to get hold of the CT images and review. With these I can comment barbara likely diagnosis and make a management plan. In the short-term I think a short course of prednisone may help with her pleuritic pain which is her major symptom at present. Plan: ??? Continue doxycycline as prescribed by primary care practitioner ??? Add prednisone 40 mg daily for 5 days ??? I will ask our secretarial team to get hold of the May 27 CT chest images from [facility] and her April chest x-ray images ??? Once I have reviewed these I will contact the patient and potentially involve local manager critical care unit, Ryanne Wilson, who I do not think is ever seen the patient but may be a useful local resourcegiven Indira's complicated history Outpatient Established Visits Time MDM 74521 10-19 Straightforward 56369 20-29 X Low 42707 30-39 Moderate 16520 40-54 High 48595 + 15 mins Beto Miller MD documented in this encounter Plan of Treatment Upcoming Encounters Date Type Department Care Team (Late st Contact Info) Description 10/08/2023 8:30 AM EDT Tech Visit Vascular Lab at [facility] [place] [address] Jose Cook 10/08/2023 9:30 AM EDT Office Visit Vascular Surgery at [address] MD [facility] [place] [address] 10/21/2023 10:30 AM EDT Appointment Nuclear Medicine at [address] Mary Reyes [facility] [place] [address] 10/21/2023 11:30 AM EDT Appointment Nuclear Medicine at [address] Mary Reyes [facility] [place] [address] 10/21/2023 12:30 PM EDT Appointment Nuclear Medicine at [place] [phone] Mary Reyes [facility] [place] [address] 10/21/2023 1:30 PM EDT Appointment Nuclear Medicine at [place] [phone] Mary Reyes [facility] [place] [address] 10/21/2023 2:30 PM EDT Appointment Nuclear Medicine at [place] [phone] Mary Reyes [facility] [place] [address] 10/26/2023 4:00 PM EDT Office Visit Cardiology at [address] [phone] Jaspreet Kinsey MD [facility] [place] [address] 10/28/2023 9:00 AM EDT Office Visit [place] [address] 10/29/2023 10:00 AM EDT Clinical Support [place] [address] 10/29/2023 10:15 AM EDT Procedure visit [place] [address] 11/01/2023 5:00 PM EDT Office [place] [phone] Selnee Browning, PhD [facility] [place] [address] 11/22/2023 4:40 PM EDT Office Visit Cardiology at [address] [phone] Porsha Mcdaniels MD [facility] [place] [address] 12/13/2023 10:00 AM EDT Clinical [place] [phone] [facility] [place] [address] documented as of this encounter Visit Diagnoses Diagnosis Pleurisy with effusion Unspecified pleural effusion History of COVID-19 Chronic cough Cough RAVI (dyspnea on exertion) Other dyspnea and respiratory abnormality documented in this encounter Care Teams Sheeter Operator Relationship Specialty Start Date End Date Tim Rogers DNP PCP - General Family Medicine 08/28/19 06/08/21 documented as of this encounter
--- OUTSIDE RECORDS SUMMARY | 2023-09-20 14:39 | XMS_ITS | Encounter Summary ---
Author Organization [facility] [place] [address] Care Team Providers Care Animal Surgeon Name Role Phone Polo Pearce Primary Care Provider [phone] Reason for Referral * Diagnostic Test (Routine) - Closed Specialty Diagnoses / Procedures Referred By Jayant harris Referred To Contact Cardiology Diagnoses Elevated blood pressure reading without diagnosis of hypertension Procedures Ziopatch 48 Hrs-15 Days Deja Zaidi PA [facility] [place] [address] [facility] [place] [address] Referral ID Status Reason Start Date Expiration Date V isits Requested Visits Authorized [id number] Closed Specialty Service Requested 06/09/2021 12/09/2021 1 1 Reason for Visit * Auth/Cert Specialty Diagnoses / Procedures Referred By Jayant harris Referred To Contact Diagnoses NSTEMI (non-ST elevated myocardial infarction) NSTEMI Procedures EMERGENCY OBSVO Referral ID Status Reason Start Date Expiration Date Visits Re quested Visits Authorized [id number] 1 1 Encounter Details Date Type Department Care Team (Latest Contact Info) Description 06/07/2021 3:49 PM EDT - 06/09/2021 3:25 PM EDT Hospital Encounter Intermediate [place] [address] Mario Hallman MD [facility] [place] [address] NSTEMI (non-ST elevated myocardial infarction); Elevated blood pressure reading without diagnosis of hypertension; Dyslipidemia Discharge Disposition: Home Social History Tobacco Use [...] Sign Reading Time Taken Comments Blood Pressure 98/51 06/09/2021 11:16 AM EDT Pulse 63 06/09/2021 11:16 AM EDT Temperature 36.2 ??C (97.2 ??F) 06/09/2021 11:16 AM E DT Respiratory Rate 16 06/09/2021 11:16 AM EDT Oxygen Saturation 95% 06/09/2021 11:16 AM EDT Inhaled Oxygen Concentration - - Weight 95 kg (209 lb 7 oz) 06/09/2021 3:45 AM ED T Height 162.6 cm (5' 4) 06/07/2021 3:53 PM EDT Body Mass Index 35.95 06/07/2021 3:53 PM EDT documented in this encounter Discharge Summaries * Mario Hallman MD - 06/08/2021 1:24 PM EDT Discharge Summary Patient Name: Loida Roque Patient Age: 51 y.o. Language: Hungarian Race: White Ethnicity: Not nor Admit date: 06/07/2021 Discharge date and time: 06/09/2021 Attending Physician: No att. providers found Discharge Physician: Dr. Hallman Follow-up Recommendations for Providers: ?? Weight at discharge 95 KG (209 pounds) ?? Home on lasix 20 mg PO daily and Jardiance 10 mg PO daily (both new) ?? Weight loss to be addressed as an out patient ?? SOB due to HFpEF, MARYLOU, mild pulmonary HTN, obesity and possible microvascular CAD ?? Ziopatch placed at discharge on 06/09/2021 ?? PCP to see in a week ?? Cardiology to see in a month ?? Lasix is new, please check BMP in a week and prn ?? Consider [place] as an out patient Inpatient Provider Contact Information: Dr. Mario Zaidi PA-C [phone] Discharge Diagnoses (Hospital Problems) and Secondary Diagnoses (Chronic Problems): Active Hospital Problems Diagnosis ??? Chronic heart failure with preserved ejection fraction ??? Pulmonary hypertension, mild ??? Obesity ??? MARYLOU on CPAP ??? Asthma ??? Dyslipidemia ??? Elevated blood pressure reading without diagnosis of hypertension ??? Insomnia Resolved Hospital Problems Diagnosis Date Resolved ??? NSTEMI (non-ST elevated myocardial infarction) 06/09/2021 Active Non-Hospital Problems Diagnosis ??? Restless leg syndrome ??? Rhinitis, nonallergic, chronic Operations/Major Procedures: ECHOCARDIOGRAM 06/08/2020 Interpretation Summary 1. Left ventricle is of [...] significant change from prior in 08/2019. ?? Procedure Complete-[id number]. Image enhancement Definity was used for left ventricular opacification. Suboptimal quality. This study is limited because of body habitus. There is normal sinus rhythm. ?? Left Ventricle Left ventricle is of normal size. Wall thickness is normal. The left ventricular ejection fraction is 61% by Reyes's biplane. Left ventricular systolic function is normal. There are no segmental wall motion abnormalities. ?? Right Ventricle The right ventricle is of normal size. Right ventricular systolic function is normal. ?? Left Atrium The left atrium is severely dilated. LAESV Index 73 ml/m2. The left atrium is not well visualized. No abnormality of the interatrial septum is identified. There is no evidence for a patent foramen ovale. ?? Right Atrium The right atrium is not well visualized. ?? Aortic Valve The aortic valve is tricuspid. There is no aortic stenosis. There is no aortic regurgitation. ?? Mitral Valve The mitral valve is structurally normal. There is no mitral stenosis. There is mild mitral regurgitation. ?? Tricuspid Valve The tricuspid valve is structurally normal. There is no tricuspid stenosis. There is trace tricuspid regurgitation. ?? Pulmonic Valve The pulmonic valve appears to be structurally normal. There is no valvular pulmonic stenosis. There is trace pulmonic valve regurgitation. ?? Great Arteries The aortic root is of normal size. No abnormalities are identified. Ascending aorta is normal in size. ?? Venous Inferior vena cava is normal in size. Inferior vena cava collapse greater than 50% with respiration. ?? Pericardium/Pleural The pericardium appears normal. There is no pericardial effusion. ?? Hemodynamics Pulmonary artery hypertension could not be assessed due to inadequate tricuspid regurgitation jet. Left ventricular diastolic function is indeterminate. Left ventricular filling pressure is normal. Ejection Fraction 2D Measurements Volumes LV Biplane EF: 60.7 % Ao root diam: 2.4 cm LA Volume Index: Ao root diam index: 1.2 asc Aorta Diam: 3.4 cm 73.0 ml/m2 LVOT diam: 1.7 cm EDV Biplane: 95.0 ml EDV Biplane Index: 47.6 ESV Biplane: 37.3 ml ESV Biplane Index: 18.7 ?? Doppler MV E max ilir: 39.0 cm/sec MV A max ilir: 20.9 cm/sec MV E/A: 1.9 MV dec time: 0.22 sec Lat Peak E' Ilir: 4.5 cm/sec E/ e' (lat): 8.6 ?? Med Peak E' Ilir: 4.4 cm/sec E/e' (med): 8.9 E/e' Average: 8.8 Right Heart Catheterization 06/09/2021 Hemodynamics: Right Heart Pressures Resting: Syst Diast EDP a v m RA 8 5 4 RV 40 7 PA 38 15 24 PCW 15 13 11 Hemodynamic Profile: Profile 1 CO 3.14 CI 1.57 TPR 611 PVR 331 Oximetry: Location %Sat Location %Sat Superior Vena Cava 55.0 Main Pulmonary Artery 56.0 Pulmonary Capillary 89.0 peripheral pulse ox 97.0 Wedge No evidence of a significant shunt was noted. Indication for Selected Procedures: Right Heart catheterization was initiated for Pulmonary hypertension, unspecified (I27.20). Vascular Access: Vascular Access Management: Manual Compression of the right median antecubital vein access site was performed. Conclusions: * No evidence of a significant shunt * Mild pulmonary hypertension Brain MRI 06/08/2021 TECHNIQUE: MRI of the brain performed without intravenous contrast administration. ?? COMPARISON: None ?? FINDINGS: Cerebral and cerebellar volume are normal. No areas of restricted diffusion are identified. No magnetic susceptibility abnormalities are identified. FLAIR images show no significant areas of abnormal signal intensity. The T2-weighted images reveal a normal appearance of the major flow voids, brain parenchyma and extra-axial spaces. ?? IMPRESSION Normal noncontrast brain MRI. ?? Thank you for letting us participate in the care of this patient. If you are a health care provider and have any questions regarding this report, please contact the number below. For patients who have questions please contact the health care aid that requested 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 CXR 06/08/2021 TECHNIQUE: PA and lateral standing chest ?? COMPARISON: Multiple priors, most recent 05/02/2021 ?? FINDINGS: Examination demonstrates a subtle patchy opacity in the left retrocardiac region. The right lung is clear. The cardiomediastinal silhouette is stable. No pleural effusion. No pneumothorax. Posttraumatic deformity right clavicle. No acute osseous lesion. ?? IMPRESSION Impression: Subtle airspace opacity left lower lobe; differential includes atelectasis, aspiration, early pneumonia. Right lung is clear. No effusion. No pneumothorax. ?? Josecharline 06/09/2021 History of Presentation: 51 Y O F with multiple medical problems including MARYLOU, Obesity, HTN, Dyslipidemia, Asthma, Depression, endometriosis, s/p hysterectomy, Insomnia, and migraine who presents to [facility] with RUQ pain that radiated to her back and gradually worsening RAVI. The pain has not improved with anything she reports. Patient received plavix 300 mg PO x 1 on 06/06 in the ER, then 75 mg PO daily 06/07, She got ASA 324 x1 on 06/06 and then ASA 81 mg PO daily today. Her CT scan showed coronary calcification, her RUQ US did not show GB pathology. She did not have a DVT. Patient has had an Echo in 2019 that showed a preserved LVEF of 62% and no WMAs. Her Cardiac cath in 2019 showed an LVEDP of 17 and normal coronaries.Of note, Patient had COVID in March 2021. Her EKG shows non-specific ST-T abnormalities and her Trop are borderline elevated. Her BNP is elevated as well. She was recently given IV lasix and treated for LLL pneumonia. Her labs on 06/06/2021 show: WBC 10.7, Hb 13.4, HCT 40.8, PLT 379, Na 138, K 4.1,Cl 105, C02 22, BUn 29 and creat is 0.9. Trop I was 378, BNP is over 4,000 (it was 1200 in 2019), TSH is 10.94, and BP was 138/79, HR 63 and RR 15. ?? Hospital Course: On admission to [facility], the patient had no complaints of chest pain or shortness of breath at rest.Telemetry was attached which showed normal sinus rhythm. Heparin drip was infusing. [facility] records/transfer records were reviewed. Baseline labs were checked and/or drawn. Chest Pain, MA ruled out, Echo showed preserved LVEF Given the patient's risk factors, chronic non-specific ST-T changes on ECG, and here at [facility] normaltroponin as well as reproducible chest tenderness and right paravertebral low thoracic tenderness it was not felt that her chest pain was anginal. An Echocardiogram showed a preserved LVEF and no WMAs. Review of the coronary angiogram of 2019 showed angiographically normal coronaries (one of our interventionalists wondered about slow coronary outflow while another one felt is was normal for radial access and nitroglycerine administration). We did not feel that another coronary angiogram would be helpful at this point. HFpEF, LVEF 61% A primary symptom the patient reported was gradually increasing SOB with exertion. She has known asthma but her inhalers did not seem to help that much. Her proBNP was more elevated on admission thatin 2019, her echocardiogram was notable for a severely dilated left atrium, low e' velocities and an L wave, all suggestive of diastolic dysfunction. She felt improved after several days of gentle diuresis (as per pt she lost significant weight, however during her stay at [facility] now she lost only 0.9 kg, to 95 kg. On her day of discharge a R heart catheterization found normal PCW pressure (possibly normalized bydiuresis), however mild pulmonary HTN and a low cardiac index of 1.6 L/min, supported by mixed venous oxygen saturation of 56% (inspite of the normal LVEF on echocardiogram and normal end-diastolic volume by echo). Her proBNP had improved on the day of discharge from 2.7k to 0.9k. Her increased pulmonary artery resistance and mild pulmonary HTN even with normal PCW suggests thather MARYLOU (on CPAP), obesity, and/or s/p COVID and asthma may be playing a role. Assuming that HFpEF is at least in part responsible for her gradually worsening RAVI, we also started patient on empagliflozin 10 mg every morning, and we explained to patient increased risk of UTIs as one possible side effect. In the future, addition of spironolactone 12.5 mg/day could be considered. Since she has been started on furosemide we we suggest to follow up with BMP in a week from now andprn. Hyperlipidemia Lipid profile showed total cholesterol 164 with LDL 91. Patient has been on lipitor here and will continue this. Hypertension The patient's blood pressure in the 24 hours prior to discharge has been BP: (98-119)/(51-63) . Monitor as an out patient. Routine screening labs revealed the following: HA1c 5.6 TSH 5.8 Smoking cessation was advised & discussed. The patient was evaluated by the cardiac rehab team. The patient tolerated supervised ambulation inthe hallway and up/downstairs with no anginal symptoms. It was recommended that the patient return home and participate in a supervised cardiac rehab program. The patient was discharged home in stable condition. Functional and Cognitive Status: stable Important Studies and Lab Data: Labs: Lab Results Component Value Date WBC 7.9 06/09/2021 HGB 15.2 06/09/2021 HCT 46.5 (H) 06/09/2021 PLATELET 334 06/09/2021 No results for input(s): INR in the last 168 hours. Lab Results Component Value Date NA 137 06/09/2021 K 4.1 06/09/2021 CL 102 06/09/2021 CO2 22 06/09/2021 BUN 23 (H) 06/09/2021 CREATININE 0.86 06/09/2021 Recent Labs 06/07/21 1726 TSH 5.83* Recent Labs 06/07/21 1704 HA1C 5.6 Recent Labs 06/08/21 1158 06/08/21 0441 06/07/21 1726 06/07/21 1704 CK 30 -- 33 -- TROPONINT -- <0.01 -- <0.01 Latest Reference Range & Units 08/29/19 15:10 06/07/21 17:26 06/09/21 03:37 ProBNP <=124 pg/mL 1,242 (H) 2,701 (H) 911 (H) (H): Data is abnormally high Lab Results Component Value Date CHLPL 164 06/07/2021 HDL 44 06/07/2021 CHOLHDL 3.7 06/07/2021 TRIG 144 06/07/2021 LDLCHOL 91 06/07/2021 LDLDIRECT 165 08/30/2019 Discharge Conditions/Prognosis: stable Discharge to: Home with family Updated Allergies/ADRs: Allergies Allergen Reactions ??? Clobetasol Rash Immunizations Given this Hospitalization: There is no immunization history on file for this patient. Discharge Medications: Your Medications New Medications Dose Details aspirin 81 mg Chew Take 81 mg by mouth daily. Start taking on: June 10, 2021 81 mg Quantity: 30 tablet Refills: 3 atorvastatin 80 mg Tab Commonly known as: Lipitor Take 1 tablet by mouth every evening. 80 mg Quantity: 90 tablet Refills: 3 empagliflozin 10 mg Tab Commonly known as: Jardiance Take 1 tablet by mouth daily. Start taking on: June 10, 2021 10 mg Quantity: 30 tablet Refills: 3 furosemide 20 mg Tab Commonly known as: Lasix Take 1 tablet by mouth daily. Start taking on: June 10, 2021 20 mg Quantity: 30 tablet Refills: 3 lisinopriL 2.5 mg Tab Commonly known as: Zestril Take 1 tablet by mouth daily. Start taking on: June 10, 2021 2.5 mg Quantity: 90 tablet Refills: 3 Continued medications, unchanged Dose Details albuteroL 90 mcg/actuation Hfaa Inhale 2 puffs into the lungs every 4 hours as needed. Use with spacer 2 puff Refills: 0 budesonide-formoteroL 160-4.5 mcg/actuation Hfaa Commonly known as: Symbicort Inhale into the lungs. Refills: 0 Claritin 10 mg Tab Daily. Generic drug: loratadine Refills: 0 diclofenac 1 % Gel Commonly known as: Voltaren APPLY TO SINGLE KNEE ANKLE OR FOOT SOLES TOES TOP OF FOOT ONCE DAILY Refills: [address] 60 mg Cpdr Commonly known as: Cymbalta Take 60 mg by mouth daily. 60 mg Refills: 0 Emgality Pen 120 mg/mL Pnij INJECT 2ML ONCE SINGLE DOSE ONCE Generic drug: galcanezumab-gnlm Refills: 0 fluticasone propionate 50 mcg/actuation Spsn Commonly known as: Flonase 1 spray by Each Nare route daily. 1 spray Refills: 0 gabapentin 300 mg Cap Commonly known as: Neurontin Take 300 mg by mouth 2 times daily. 300 mg Refills: 0 hydrOXYzine 25 mg Tab Commonly known as: Atarax Take 25 mg by mouth every 6 hours as needed (Headache). 25 mg Refills: 0 rOPINIRole 1 mg Tab Commonly [...] BY MOUTH TWICE A DAY Refills: 0 Smoking Status at Discharge: Social History Tobacco Use Smoking Status Never Smoker Smokeless Tobacco Never Used Instructions Given to Patient at Discharge: There are no outpatient Patient Instructions on file for this admission. General Instructions Return to work: One week Driving: as needed Follow up Appointments: PCP Tim Rogers, VIDEO NETWORK ENGINEER [phone] to see you in a week (patient to set this up) Mel placed on 06/09/2021 Cardiology to see in a month and prn. Dr. Kinsey to see the patient in [place] on July 23 at 920 am. Please call [phone] with questions. Home oxygen therapy: N/A Arrangements for VNA/home care: none Future Appointments and Orders Future Appointments and Orders Future Appointments Provider Department Dept Phone 07/23/2021 8:20 AM Jaspreet Kinsey MD Cardiology at [place] Arrive at: [facility] [address] [phone] Future Orders Complete By Expires Mel 48 Hrs-15 Days [ICJ1035 CPT(R)] 06/09/2021 12/09/2021 Process Instructions: Scheduling Instructions: Questions: Does the patient have a pacemaker? If yes provide HI/LO settings: Apply for 7 or 14 days?: 14 Where will study be performed?: [facility] Clin[facility] Basic Metabolic Panel (non-fasting) [LAB15 Custom] 06/16/2021 (Approximate) 06/09/2022 Process Instructions: INCLUDES: Calcium, BUN, Creat, GFR, Glucose, Lytes Scheduling Instructions: Comments: Questions: Discharge References/Attachments None documented in this encounter Discharge Instructions * Discharge Instructions* Deja Zaidi PA - 06/08/2021 1:56 PM EDT Return to work: One week Driving: as needed Follow up Appointments: PCP Tim Rogers, VIDEO NETWORK ENGINEER [phone] to see you in a week (patient to set this up) Mel placed on 06/09/2021 Cardiology to see in a month and prn. Dr. Kinsey to see the patient in [place] on July 23 at 920 am. Please call [phone] with questions. Home oxygen therapy: N/A Arrangements for VNA/home care: none documented in this encounter Medications at Time of Discharge Medication Sig Dispensed Refills Start Date End Date rOPINIRole (Requip) 1 mg Tablet Take 2 mg by mouth 2 times daily. 07/16/2020 loratadine (Claritin) 10 mg Tablet Take 10 mg by mouth daily as needed. fluticasone propionate (FLONASE) 50 mcg/actuation [place], Suspension 1 spray by Each Nare route [...] Inject subcutaneously every 30 days. 08/13/2020 04/22/2023 aspirin 81 mg Tablet, Chewable Take 81 [...] mouth daily. 90 tablet 3 06/10/2021 01/01/2022 empagliflozin (Jardiance) 10 mg Tablet Take 1 tablet by mouth daily. 30 tablet 3 06/10/2021 06/10/2021 Emgality Pen 120 mg/mL Pen Injector INJECT [...] as of this encounter Progress Notes * Rocio Rosenthal - 06/09/2021 1:31 PM EDT Nutrition Services Note - Low Nutrition Acuity Loida Roque is a 51 y.o. female Reason for intervention: education Nutrition Plan: Pt seen for Na2gm diet. National Coverage Specialist informed pt of current diet orders and their restrictions. Pt expressed understanding and informed this comic book writer that she tries to limit salt use at home. National Coverage Specialist and pt discussed common sources of sodium (pre-prepared foods) and alternatives (fresh/frozen veggies). Provided educational material and encouraged pt to reach out with any questions or concerns. Will continue to monitor and follow up. Continue current diet. Monitor weight. Encourage good oral intake. Support and encouragement provided. Discussed case with Clinical Dietitian Active Orders Diet Daily Healthy Menu Choices/Cardiac diet ([facility]-Diet) 2 GM NA Frequency: Effective Now Number of Occurrences: Until Specified Admit Weight: 95.9 kg Estimated body mass index is 35.95 kg/m?? as calculated from the following: Height as of this encounter: 162.6 cm (5' 4). Weight as of this encounter: 95 kg (209 lb 7 oz). 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 Rocio Rosenthal Pager: [phone] * Deja Zaidi PA - 06/09/2021 9:14 AM EDT Inpatient Cardiology Discharge Day Note Patient Name: Loida Roque Service: FOOD RUNNER / PA Responsible Attending: Mario Hallman MD Reason for continued hospitalization: RH today Brain MRI Telemetry monitoring NPO for cath Active Problems: Active Hospital Problems Diagnosis ??? NSTEMI (non-ST elevated myocardial infarction) ??? Obesity ??? Dyslipidemia ??? Elevated blood pressure reading without diagnosis of hypertension ??? MARYLOU on CPAP ??? Insomnia ??? Chronic heart failure with preserved ejection fraction ??? Asthma Resolved Hospital Problems No resolved problems to display. Interval History: Patient is getting a RHC today. She got a brain MRI to evaluate her garbled speech a week ago and this was fine. Plans are to send her home with a ZIOPATCH at discharge. She is under a lot of stress at home taking care of her with MS, mother and working (only one earning money at the moment). Review of Systems: Review of Systems Constitutional: Negative. HENT: Negative. Eyes: Negative. Respiratory: Positive for chest tightness and shortness of breath. Cardiovascular: Positive for chest pain, palpitations and leg swelling. Gastrointestinal: Negative. Endocrine: Negative. Genitourinary: Negative. Musculoskeletal: Negative. Skin: Negative. Allergic/Immunologic: Negative. Neurological: Negative. Hematological: Negative. Psychiatric/Behavioral: Negative. Telemetry: HR: 54 sinus bradycardia Meds: Scheduled Meds: ??? [MAY Hold] empagliflozin 10 mg Oral Daily ??? [MAY Hold] budesonide-formoteroL 2 Inhalation Inhalation BID ??? [MAY Hold] DULoxetine DR 60 mg Oral Daily ??? [MAY Hold] fluticasone propionate 1 spray Each Nare Daily ??? [MAY Hold] gabapentin 300 mg Oral BID ??? [MAY Hold] loratadine 5 mg Oral Daily ??? [MAY Hold] rOPINIRole 1 mg Oral Nightly ??? [MAY Hold] topiramate 50 mg Oral BID ??? [MAY Hold] montelukast 10 mg Oral Nightly ??? [MAY Hold] metoprolol tartrate 12.5 mg Oral 2 times per day ??? [MAY Hold] lisinopriL 2.5 mg Oral Daily ??? [MAY Hold] atorvastatin 80 mg Oral QPM ??? [MAY Hold] aspirin 81 mg Oral Daily ??? [MAY Hold] furosemide 20 mg Oral Daily ??? [MAY Hold] traZODone 100 mg Oral Nightly Continuous Infusions: PRN Meds:midazolam (PF), atropine, fentaNYL (PF), [MAY Hold] acetaminophen, [MAY Hold] traMADoL, [MAY Hold] hydrOXYzine, [MAY Hold] albuteroL Physical Exam: Vital Signs: Last value Range last 24 hrs Temperature Temp: 36.2 ??C (97.2 ??F) Temp: [36 ??C (96.8 ??F)-37.1 ??C (98.8 ??F)] Heart Rate Heart Rate: 52 Heart Rate: [46-62] Blood Pressure BP: 114/63 BP: (101-138)/(51-86) Respiratory Rate Resp: 14 Resp: [14-18] SpO2 SpO2: 97 % SpO2: [92 %-100 %] Physical Exam Constitutional: Appearance: Normal appearance. HENT: Head: Normocephalic and atraumatic. Nose: Nose normal. Mouth/Throat: Mouth: Mucous membranes are moist. Eyes: Pupils: Pupils are equal, round, and reactive to light. Cardiovascular: Rate and Rhythm: Normal rate. Pulses: Normal pulses. Pulmonary: Effort: Pulmonary effort is normal. Abdominal: General: Abdomen is flat. Musculoskeletal: General: Normal range of motion. Cervical back: Normal range of motion. Skin: General: Skin is warm. Neurological: General: No focal deficit present. Mental Status: She is alert. Psychiatric: Mood and Affect: Mood normal. Lab Comments: Recent Results (from the past 24 hour(s)) urine, qualitative ([place]/[facility]/CGP/NL) Result Value Ref Range Spec [place] UA 1.010 1.006 - 1.030 HCG Qual Negative Heparin (unfractionated) Level Result Value Ref Range Heparin UFH Level 0.77 IU/mL Sedimentation rate Result Value Ref Range Sed Rate 53 (H) 2 - 39 mm/hr CK Result Value Ref Range CK, Total 30 0 - 160 unit/L CRP, acute inflammation Result Value Ref Range CRP 28.1 (H) <=4.9 mg/L Heparin (unfractionated) Level Result Value Ref Range Heparin UFH Level <0.04 IU/mL BMP w/fasting Glucose Result Value Ref Range Glucose Fasting 103 (H) 65 - 99 mg/dL BUN 23 (H) 8 - 18 mg/dL Creatinine 0.86 0.70 - 1.20 mg/dL Sodium 137 135 - 145 mmol/L Potassium 4.1 3.5 - 5.0 mmol/L Chloride 102 98 - 107 mmol/L CO2 22 22 - 31 mmol/L Anion Gap 13 5 - 15 mmol/L Calcium 9.3 8.5 - 10.5 mg/dL Estimated GFR 78 >=60 mL/min/1.73 m?? Hemogram Result Value Ref Range WBC 7.9 4.0 - 9.5 x10(3)/mcL RBC 4.88 4.00 - 5.21 x10(6)/mcL Hemoglobin 15.2 11.7 - 15.5 g/dL Hematocrit 46.5 (H) 35.7 - 45.8 % MCV 95.3 (H) 82.6 - 94.4 fL MCH 31.1 27.1 - 32.0 pg MCHC 32.7 31.7 - 35.0 g/dL Platelets 334 145 - 357 x10(3)/mcL RDWSD 49.2 (H) 37.0 - 46.0 fL RDWCV 14.5 (H) 11.5 - 14.1 % MPV 10.2 7.6 - 12.9 fL nRBC % Auto 0.0 % nRBC Abs Auto 0.000 0.000 - 0.000 x10(3)/mcL Differential, Automated Result Value Ref Range Neutrophils % 64.9 % Neutr Abs (ANC) 5.12 1.70 - 6.10 x10(3)/mcL Lymphocytes % 21.9 % Lymphocytes Abs 1.7 0.9 - 3.2 x10(3)/mcL Monocytes % 8.6 % Monocyte Abs 0.7 0.3 - 0.9 x10(3)/mcL Eosinophils % 3.4 % Eosinophils Abs 0.3 0.0 - 0.4 x10(3)/mcL Basophils % 0.8 % Basophils Abs 0.1 0.0 - 0.1 x10(3)/mcL Immature Gran % 0.40 % Shonda Gran Abs 0.03 0.00 - 0.04 x10(3)/mcL Pertinent Radiographic/Diagnostic Results: ECHO: LVEF is 61% BRAIN MRI - fine per report Assessment: Loida Roque is a 51 y.o. female with multiple cardiac risk factors including HTN, Dyslipidemia, MARYLOU, Obesity, and calcification seen on recent CT scan presents to [facility] from [facility] with a NSTEMI. She has an elevated trop, BNP and lateral EKG changes. Patient is now awaiting an Echo and cardiac cath. Neurology consult called in to determine if she needs imaging prior to her Echo andcath given garbled speech a week ago. Stable at this time. ?? TREATMENT PLAN: NSTEMI Continue telemetry monitoring Serial enzymes and EKGs Echocardiogram shows a preserved LVEF Neurology consult for recent garbled speech a week ago that resolved (MRI was fine) RHC today Lipitor, asa, plavix, metoprolol, lisinopril Check TSH, HBAIC, lipids and LFTS Check CPK, CRP and ESR Likely ZIOPATCH upon discharge home?? Dyslipidemia Continue lipitor Check lipids and LFTS ?? HTN Continue metop and lisinopril Monitor trends ?? RUQ pain Check amylase and lipase Worse after eating she said Follow ?? Obesity Cardiac rehab Lifestyle modifications ?? FULL CODE ?? Patient seen and discussed with Dr. Hallman. ?? JOCY Hernandez Pager [phone] JOCY MCKOY 06/09/2021 Associated attestation - Mario Hallman MD - 06/09/2021 9:37 PM EDT Cardiology Attending Addendum I shared this visit with JOCY Zaidi and guided the medical decision- making. I explained to patient the findings of echo, R heart catheterization and our diagnostic impression and medications (furosemide and empagliflozin) and possible adverse events. More than 30 minutes were spent in [id number] contact with patient and with arranging discharge and coordinating follow-up. * Silvino Robles RCP - 06/09/2021 5:48 AM EDT Respiratory Therapy NIV Note NIV Settings: NIV Mode: Auto CPAP (V30) NIV Measurements: Resp: 18 SpO2: 97 % Skin Assessment: NIV Skin Assessment WDL: WDL Mepilex Applied: No Assessment: Pt compliant with nocturnal CPAP -per pt home settings are Auto CPAP 16-22 Plan: Continue to support pt with CPAP for MARYLOU Silvino Robles RCP * Jaspreet Pardo - 06/08/2021 8:34 PM EDT Retail Management Keyholder Encounter Note Patient Name: Loida Roque : [id number] MR#: [id number] Admit Date: 06/07/2021 3:49 PM Hospital Day 0 days Narrative: Initial rounding visit to introduce [employer] and to assess patient interest. Patient welcomed visit. Patient was sitting up in chair and just beginning her dinner. Assessment: Patient was displaying a big smile. Patient expressed appreciation for the visit and began eating and watching TV. Intervention and Outcome: Patient declined spiritual care at this time, but shared that that she is well and has a large support system through her co-workers via their chat room. Follow-up: No further visits planned at this time Time in Direct Care: 5 minutes Jaspreet Pardo 06/08/2021 * Deja Zaidi PA - 06/08/2021 10:42 AM EDT Images from the original note were not included. Inpatient Cardiology Discharge Day Note Patient Name: Loida Roque Service: FOOD RUNNER / PA Responsible Attending: Mario Hallman MD Reason for continued hospitalization: awaiting Echo Brain MRI Telemetry monitoring Active Problems: Active Hospital Problems Diagnosis ??? NSTEMI (non-ST elevated myocardial infarction) ??? Obesity ??? Dyslipidemia ??? Elevated blood pressure reading without diagnosis of hypertension ??? MARYLOU on CPAP ??? Insomnia ??? Chronic heart failure with preserved ejection fraction ??? Asthma Resolved Hospital Problems No resolved problems to display. Interval History: Patient is getting an Echo today. She will also get a brain MRI to evaluate her garbled speech a week ago. Plans are to send her home with a ZIOPATCH at discharge. She is under a lot of stress at home taking care of her with MS, mother and working (only one earning money at the moment). Review of Systems: Review of Systems Constitutional: Negative. HENT: Negative. Eyes: Negative. Respiratory: Positive for chest tightness and shortness of breath. Cardiovascular: Positive for chest pain, palpitations and leg swelling. Gastrointestinal: Negative. Endocrine: Negative. Genitourinary: Negative. Musculoskeletal: Negative. Skin: Negative. Allergic/Immunologic: Negative. Neurological: Negative. Hematological: Negative. Psychiatric/Behavioral: Negative. Telemetry: HR: 54 sinus bradycardia Meds: Scheduled Meds: ??? budesonide-formoteroL 2 Inhalation Inhalation BID ??? DULoxetine DR 60 mg Oral Daily ??? fluticasone propionate 1 spray Each Nare Daily ??? gabapentin 300 mg Oral BID ??? loratadine 5 mg Oral Daily ??? rOPINIRole 1 mg Oral Nightly ??? topiramate 50 mg Oral BID ??? montelukast 10 mg Oral Nightly ??? metoprolol tartrate 12.5 mg Oral 2 times per day ??? lisinopriL 2.5 mg Oral Daily ??? atorvastatin 80 mg Oral QPM ??? clopidogreL 75 mg Oral Daily ??? aspirin 81 mg Oral Daily ??? furosemide 20 mg Oral Daily ??? traZODone 100 mg Oral Nightly Continuous Infusions: ??? heparin (porcine) infusion 1,100 Units/hr (06/08/21 0719) PRN Meds:hydrOXYzine, heparin (porcine) infusion AND heparin (porcine), albuteroL Physical Exam: Vital Signs: Last value Range last 24 hrs Temperature Temp: 36 ??C (96.8 ??F) Temp: [36 ??C (96.8 ??F)-36.9 ??C (98.4 ??F)] Heart Rate Heart Rate: 53 Heart Rate: [50-58] Blood Pressure BP: 109/69 BP: (106-139)/(61-72) Respiratory Rate Resp: 19 Resp: [17-19] SpO2 SpO2: 100 % SpO2: [94 %-100 %] Physical Exam Constitutional: Appearance: Normal appearance. HENT: Head: Normocephalic and atraumatic. Nose: Nose normal. Mouth/Throat: Mouth: Mucous membranes are moist. Eyes: Pupils: Pupils are equal, round, and reactive to light. Cardiovascular: Rate and Rhythm: Normal rate. Pulses: Normal pulses. Pulmonary: Effort: Pulmonary effort is normal. Abdominal: General: Abdomen is flat. Musculoskeletal: General: Normal range of motion. Cervical back: Normal range of motion. Skin: General: Skin is warm. Neurological: General: No focal deficit present. Mental Status: She is alert. Psychiatric: Mood and Affect: Mood normal. Lab Comments: Recent Results (from the past 24 hour(s)) COVID-19 PCR Specimen: Nasopharyngeal Swab Symptoms->Surveillance Result Value Ref Range SARS-CoV-2 RNA PCR Not Detected Not Detected SARS-CoV-2 Source FOOD RUNNER Swab Troponin Result Value Ref Range Troponin-T <0.01 0.00 - 0.00 ng/mL Hemoglobin A1c Result Value Ref Range Hemoglobin A1C 5.6 4.3 - 5.6 % Est Avg Gluc 114 mg/dL CK Result Value Ref Range CK, Total 33 0 - 160 unit/L Lipid Panel (Reflex Direct LDL) Result Value Ref Range Chol, Total 164 mg/dL Triglycerides 144 mg/dL HDL 44 mg/dL LDL Cholesterol 91 mg/dL Chol/HDL Ratio 3.7 ratio Lipid Interpretation See Note Amylase Result Value Ref Range Amylase 39 28 - 100 unit/L Lipase Result Value Ref Range Lipase 18 0 - 60 unit/L TSH Result Value Ref Range TSH 5.83 (H) 0.27 - 4.20 mcIU/mL T4 Total Result Value Ref Range T4, total 6.8 5.3 - 11.6 mcg/dL T3 Total Result Value Ref Range T3, Total 134 80 - 200 ng/dL BMP w/fasting Glucose Result Value Ref Range Glucose Fasting 90 65 - 99 mg/dL BUN 18 8 - 18 mg/dL Creatinine 1.07 0.70 - 1.20 mg/dL Sodium 137 135 - 145 mmol/L Potassium 4.3 3.5 - 5.0 mmol/L Chloride 101 98 - 107 mmol/L CO2 24 22 - 31 mmol/L Anion Gap 12 5 - 15 mmol/L Calcium 9.1 8.5 - 10.5 mg/dL Estimated GFR 60 >=60 mL/min/1.73 m?? Hemogram Result Value Ref Range WBC 12.0 (H) 4.0 - 9.5 x10(3)/mcL RBC 4.72 4.00 - 5.21 x10(6)/mcL Hemoglobin 14.5 11.7 - 15.5 g/dL Hematocrit 44.0 35.7 - 45.8 % MCV 93.2 82.6 - 94.4 fL MCH 30.7 27.1 - 32.0 pg MCHC 33.0 31.7 - 35.0 g/dL Platelets 346 145 - 357 x10(3)/mcL RDWSD 47.2 (H) 37.0 - 46.0 fL RDWCV 14.4 (H) 11.5 - 14.1 % MPV 10.6 7.6 - 12.9 fL nRBC % Auto 0.0 % nRBC Abs Auto 0.000 0.000 - 0.000 x10(3)/mcL Differential, Automated Result Value Ref Range Neutrophils % 74.6 % Neutr Abs (ANC) 8.97 (H) 1.70 - 6.10 x10(3)/mcL Lymphocytes % 15.9 % Lymphocytes Abs 1.9 0.9 - 3.2 x10(3)/mcL Monocytes % 6.0 % Monocyte Abs 0.7 0.3 - 0.9 x10(3)/mcL Eosinophils % 2.6 % Eosinophils Abs 0.3 0.0 - 0.4 x10(3)/mcL Basophils % 0.5 % Basophils Abs 0.1 0.0 - 0.1 x10(3)/mcL Immature Gran % 0.40 % [place] Gran Abs 0.05 (H) 0.00 - 0.04 x10(3)/mcL pro-Brain Natriuretic Peptide Result Value Ref Range ProBNP 2,701 (H) <=124 pg/mL Heparin (unfractionated) Level Result Value Ref Range Heparin UFH Level 0.08 IU/mL BMP w/fasting Glucose Result Value Ref Range Glucose Fasting 95 65 - 99 mg/dL BUN 21 (H) 8 - 18 mg/dL Creatinine 0.87 0.70 - 1.20 mg/dL Sodium 138 135 - 145 mmol/L Potassium 4.1 3.5 - 5.0 mmol/L Chloride 103 98 - 107 mmol/L CO2 22 22 - 31 mmol/L Anion Gap 13 5 - 15 mmol/L Calcium 8.7 8.5 - 10.5 mg/dL Estimated GFR 77 >=60 mL/min/1.73 m?? Troponin Result Value Ref Range Troponin-T <0.01 0.00 - 0.00 ng/mL Heparin (unfractionated) Level Result Value Ref Range Heparin UFH Level 1.06 (CRIT) IU/mL Hemogram Result Value Ref Range WBC 11.3 (H) 4.0 - 9.5 x10(3)/mcL RBC 4.64 4.00 - 5.21 x10(6)/mcL Hemoglobin 13.9 11.7 - 15.5 g/dL Hematocrit 43.0 35.7 - 45.8 % MCV 92.7 82.6 - 94.4 fL MCH 30.0 27.1 - 32.0 pg MCHC 32.3 31.7 - 35.0 g/dL Platelets 312 145 - 357 x10(3)/mcL RDWSD 47.4 (H) 37.0 - 46.0 fL RDWCV 14.3 (H) 11.5 - 14.1 % MPV 10.8 7.6 - 12.9 fL nRBC % Auto 0.0 % nRBC Abs Auto 0.000 0.000 - 0.000 x10(3)/mcL Differential, Automated Result Value Ref Range Neutrophils % 71.8 % Neutr Abs (ANC) 8.09 (H) 1.70 - 6.10 x10(3)/mcL Lymphocytes % 18.0 % Lymphocytes Abs 2.0 0.9 - 3.2 x10(3)/mcL Monocytes % 5.7 % Monocyte Abs 0.6 0.3 - 0.9 x10(3)/mcL Eosinophils % 3.5 % Eosinophils Abs 0.4 0.0 - 0.4 x10(3)/mcL Basophils % 0.6 % Basophils Abs 0.1 0.0 - 0.1 x10(3)/mcL Immature Gran % 0.40 % Shonda Gran Abs 0.05 (H) 0.00 - 0.04 x10(3)/mcL Heparin (unfractionated) Level Result Value Ref Range Heparin UFH Level 1.20 (CRIT) IU/mL Pertinent Radiographic/Diagnostic Results: ECHO: Assessment: Loida Roque is a 51 y.o. female with multiple cardiac risk factors including HTN, Dyslipidemia, MARYLOU, Obesity, and calcification seen on recent CT scan presents to [facility] from [facility] with a NSTEMI. She has an elevated trop, BNP and lateral EKG changes. Patient is now awaiting an Echo and cardiac cath. Neurology consult called in to determine if she needs imaging prior to her Echo andcath given garbled speech a week ago. Stable at this time. ?? TREATMENT PLAN: NSTEMI Continue telemetry monitoring Serial enzymes and EKGs Echocardiogram Neurology consult for recent garbled speech a week ago that resolved Consider cath at later date Continue heparin gtt Lipitor, asa, plavix, metoprolol, lisinopril Check TSH, HBAIC, lipids and LFTS Check CPK, CRP and ESR Brain MRI today Likely ZIOPATCH upon discharge home?? Dyslipidemia Continue lipitor Check lipids and LFTS ?? HTN Continue metop and lisinopril Monitor trends ?? RUQ pain Check amylase and lipase Worse after eating she said Follow ?? Obesity Cardiac rehab Lifestyle modifications ?? FULL CODE ?? Patient seen and discussed with Dr. Hallman. ?? JOCY Hernandez Pager [phone] JOCY MCKOY 06/08/2021 Associated attestation - Mario Hallman MD - 06/08/2021 6:12 PM EDT Cardiology Attending Addendum I shared this visit with JOCY Zaidi and guided the medical decision- making. I reviewed coronary angiogram of with Dr Wright who feels that coronary run off is delayed. This, together with her elevated proBNP, low lateral s1 on echo, severe LA dilation all are consistent with HFpEF. Interest ingly here heart does not appear particularly hypertrophic. Will consider RHC to assess for pulmonary HTN and PCW pressure tomorrow. Pt feels improved since she has been getting some furosemide here with mild weight reduction. Microvascular disease certainly is also an option and consistent with HFpEF. We also discussed empagliflozine as helpful for diastolic heart failure and increased risk of UTIs.However, if her PCW is normal on RHC tomorrow, then we may need to reconsider this. * Olive Anne RN - 06/08/2021 6:55 AM EDT 06/07/21 2350 06/08/21 0527 Adult Vital Signs Resp -- 18 SpO2 99 % 94 % Visual Checks Awake;In bed Awake;In bed Pulse Oximetry Probe Reposition Probe Placed On (Pulse Ox) Right:;finger Right:;finger Probe Removed From (Pulse Ox) Right:;finger Right:;finger Oxygen Therapy O2 Device NRB NRB paged for PM CPAP/BIPAP- no order present. Patient requesting mask. NRB placed. * Olive Anne RN - 06/08/2021 5:34 AM EDT Latest Reference Range & Units 06/07/21 21:55 06/08/21 04:41 Heparin UFH Level IU/mL 0.08 [1] 1.06 !! [2] MD notified. Repeat draw requested and sent to lab at 0530. documented in this encounter H&P Notes * Deja Zaidi PA - 06/07/2021 4:37 PM EDT Images from the original note were not included. Cardiology Admission H&P Patient Name: Loida Roque Date of : 1970 Age: 51 y.o. Hospital Admit Date: 06/07/2021 Inpatient Attending: Mario Hallman MD PCP: Tim Rogers APRN Presenting Diagnosis/Chief Complaint: 10/10 RUQ pain radiating to her back, constant for several days Active Problem List: Active Hospital Problems Diagnosis ??? NSTEMI (non-ST elevated myocardial infarction) ??? Obesity ??? Dyslipidemia ??? Elevated blood pressure reading without diagnosis of hypertension ??? MARYLOU on CPAP ??? Insomnia ??? Chronic heart failure with preserved ejection fraction ??? Asthma Resolved Hospital Problems No resolved problems to display. History of Present Illness: HPI 51 Y O F with multiple medical problems including MARYLOU, Obesity, HTN, Dyslipidemia, Asthma, Depression, endometriosis, s/p hysterectomy, Insomnia, and migraine who presents to [facility] with RUQ pain that radiated to her back. The pain has not improved with anything she reports. Patient received plavix 300 mg PO x 1 on 06/06 in the ER, then 75 mg PO daily 06/07, She got ASA 324 x 1 on 06/06 and then ASA 81 mgPO daily today. Her CT scan showed coronary calcification, her RUQ US did not show GB pathology. She did not have a DVT. Patient has had an Echo in 2019 that showed a preserved LVEF of 62% and no WMAs. Her Cardiac cath in 2019 showed an LVEDP of 17 and normal cors. Of note, Patient had COVID in March. At this time she is having 10/10 RUQ pain that radiated to her back. She has been NPO since 9 pm last night. Her EKG shows new changes with ST depression laterally and her Trop are elevated. HerBNP is elevated as well. She was recently given IV lasix and treated for LLL pneumonia. Her labs on06/06/2021 show: WBC 10.7, Hb 13.4, HCT 40.8, PLT 379, Na 138, K 4.1, Cl 105, C02 22, BUn 29 and creat is 0.9. Trop I was 378, BNP is over 4,000 (it was 1200 in 2020), TSH is 10.94, and BP was 138/79, HR 63 and RR 15. Echo 2020 BP: 120/74 ?? SUMMARY: ?? 1. Technically limited study. 2. The left ventricular chamber size is normal. Moderate concentric left ventricular hypertrophy is observed. Basal septal hypertrophy is observed. There is no evidence of LVOT obstruction. There are no left ventricular segmental wall motion abnormalities. The quantitative left ventricular ejection fraction by biplane Reyes's method is 62%. Left sided filling pressure could not be assessed by Doppler. 3. The right ventricle is probably normal in size. There is mild right ventricular hypertrophy observed. Right ventricular global systolic function is normal. 4. The left atrium is severely dilated. The right atrium appears normal. 5. There is no hemodynamically significant valve disease. 6. Pulmonary artery hypertension could not be assessed due to inadequate tricuspid regurgitation jet. 7. See remainder of report for additional findings. Cardiac Cath 2019 Hemodynamics: Left Heart Pressures Resting: Syst Diast EDP a v m Ao 108 70 85 LV 111 17 Coronary Angiography: Dominance: Right Left Main The left main was normal, free of disease. Left Anterior Descending The left anterior descending (LAD) was normal, free of disease. Left Circumflex The left circumflex (LCX) was normal, free of disease. Right Coronary Artery The right coronary artery (RCA) was normal, free of disease. Vascular Access: Vascular Access Management: Mechanical Compression of the right radial artery access site was performed. Conclusions: * Normal coronary arteries Past Medical History: Past Medical History: Diagnosis Date ??? Asthma ??? Depression ??? Endometriosis S/p hysterectomy ??? Insomnia ??? Migraine ??? Obesity (BMI 30-39.9) ??? MARYLOU on CPAP ??? Seasonal allergies Surgical History/Problems: No past surgical history on file. Significant Family History: No family history on file. Social History: Social History Socioeconomic History ??? 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 Financial Resource Strain: Not on file Food Insecurity: Not on file Transportation Needs: Not on file Physical Activity: Not on file Housing Stability: Not on file REVIEW OF SYSTEMS: Review of Systems Constitutional: Negative. HENT: Negative. Eyes: Negative. Respiratory: Positive for chest tightness. Cardiovascular: Positive for chest pain and palpitations. Gastrointestinal: Negative. Endocrine: Negative. Genitourinary: Negative. Musculoskeletal: Negative. Allergic/Immunologic: Negative. Neurological: Negative. Hematological: Negative. Psychiatric/Behavioral: Negative. Medications: Medications Prior to Admission Medication Sig Dispense Refill Last Dose ??? Emgality Pen 120 mg/mL Pen Injector INJECT 2ML ONCE SINGLE DOSE ONCE ??? rOPINIRole (Requip) 1 mg Tablet TAKE 1 TABLET BY MOUTH 2 3 HOURS BEFORE BEDTIME ??? traZODone (Desyrel) 50 mg Tablet TAKE 1 TO 2 TABLETS BY MOUTH AT BEDTIME ??? zafirlukast (Accolate) 20 mg Tablet TAKE ONE TABLET BY MOUTH TWICE A DAY ??? budesonide-formoteroL (SYMBICORT) 160-4.5 mcg/actuation HFA Aerosol Inhaler Inhale into the lungs. ??? diclofenac (VOLTAREN) 1 % Gel APPLY TO SINGLE KNEE ANKLE OR FOOT SOLES TOES TOP OF FOOT ONCE DAILY ??? loratadine (Claritin) 10 mg Tablet Daily. ??? fluticasone propionate (FLONASE) 50 mcg/actuation [place], Suspension 1 spray by Each Nare route daily. ??? gabapentin (Neurontin) 300 mg Capsule Take 300 mg by mouth 2 times daily. ??? hydrOXYzine (Atarax) 25 mg Tablet Take 25 mg by mouth every 6 hours as needed (Headache). ??? SUMAtriptan (Imitrex) 100 mg Tablet Take 100 mg by mouth as needed for Migraine. Initial dose: 25 mg, 50 mg, or 100 mg (take with fluids). May repeat dose after 2 hours. Max daily dose: 200 mg ??? topiramate (TOPAMAX) 50 mg Tablet Take 50 mg by mouth 2 times daily. 50 mg in the morning, 100 mg at bedtime ??? DULoxetine (CYMBALTA) 60 mg capsule Take 60 mg by mouth daily. ??? albuterol (PROVENTIL HFA;VENTOLIN HFA) 90 mcg/Actuation inhaler Inhale 2 puffs into the lungs every 4 hours as needed. Use with spacer Allergies: Allergies Allergen Reactions ??? Clobetasol Rash PHYSICAL EXAM: Last set of vital signs: Blood Pressure 139/72 (BP Location (NBP): Right arm, Patient Position: Sitting) Pulse 53 Temperature 36.4 ??C (97.5 ??F) (Oral) Respiration 17 Height 162.6 cm (5' 4) Weight 95.9 kg (211 lb 6.7 oz) Oxygen Saturation 96% Body Mass Index 36.29 kg/m?? Physical Exam Constitutional: Appearance: Normal appearance. HENT: Head: Normocephalic and atraumatic. Nose: Nose normal. Eyes: Pupils: Pupils are equal, round, and reactive to light. Cardiovascular: Rate and Rhythm: Normal rate. Pulses: Normal pulses. Heart sounds: S1 normal and S2 normal. Pulmonary: Effort: Pulmonary effort is normal. Abdominal: General: Abdomen is flat. Musculoskeletal: General: Normal range of motion. Skin: General: Skin is warm. Neurological: General: No focal deficit present. Mental Status: She is alert. Psychiatric: Mood and Affect: Mood normal. Diagnostics: Cardiac Cath: ECHO: LABS: No results found for this or any previous visit (from the past 24 hour(s)). ASSESSMENT: 51 Y O F with multiple cardiac risk factors including HTN, Dyslipidemia, MARYLOU, Obesity, and calcification seen on recent CT scan presents to [facility] from [facility] with a NSTEMI. She has an elevated trop, BNP and lateral EKG changes. Patient is now awaiting an Echo and cardiac cath. Neurology consult called in to determine if she needs imaging prior to her Echo and cath given garbled speech a week ago. Stable at this time. TREATMENT PLAN: NSTEMI Admit to [facility] for telemetry monitoring Serial enzymes and EKGs Echocardiogram Neurology consult for recent garbled speech a week ago that resolved NPO after MN for cath Continue heparin gtt Lipitor, asa, plavix, metoprolol, lisinopril Check TSH, HBAIC, lipids and LFTS Dyslipidemia Continue lipitor Check lipids and LFTS HTN Continue metop and lisinopril Monitor trends RUQ pain Check amylase and lipase Worse after eating she said Follow Obesity Cardiac rehab Lifestyle modifications FULL CODE Patient seen and discussed with Dr. Hallman. JOCY Hernandez 06/07/2021 Provider: JOCY MCKOY Pager [phone] 06/07/2021 Associated attestation - Mario Hallman MD - 06/07/2021 7:52 PM EDT Cardiology Attending Addendum I shared this visit with JOCY Zaidi and guided the medical decision- making. Her troponin-T here is negative, proBNP 2.7k, has had some anterior chest and R abdominal discomfort with respirophasic pattern since she had COVID in March 2021. An acute coronary syndrome does not appear likely. She likely does have some HFpEF, based on SOB, proBNP which was already elevated 08/29/2019 with nl LVEF (LVEDP on 08/30/2019 only mildly high with 17 mmHg though). Furthermore, she reports occasional episodes of tachycardic palpitations, which may last for quite some time and describes an episode of garbled speech lasting a few minutes, never had this before or since. Will obtain echocardiogram tomorrow and monitor rhythm. Echo should be done with agitated saline injection to assess for shunt. Since her intermittent tachycardic palpitations could have been afib/flutter and her recent garbledspeech episode, would likely benefit from brain imaging to assess for embolic event. documented in this encounter Miscellaneous Notes * Initial Assessments - Gisel De Oliveira RN - 06/09/2021 9:16 AM EDT Office of Care Management Initial Assessment Medical record reviewed. Plan of care and patient status discussed with direct care Registered Nurse and/or Care Team in multidisciplinary rounds. Reason for Hospitalization: Last COVID test: Lab Results Component Value Date [id number] Not Detected 06/07/2021 Present on Admission: ??? NSTEMI (non-ST elevated myocardial infarction) ??? Asthma ??? MARYLOU on CPAP ??? Insomnia ??? Chronic heart failure with preserved ejection fraction Hospitalizations Within the Past 30 Days: no previous admission in last 30 days Patient receiving hospital care under Observation status. Admission order reviewed. Primary Insurance on file: [employer] Secondary Insurance on file:@ Primary care provider on file: Tim Rogers APRN [phone] Pharmacy: [id number] - [place], [place] - [address] [facility] [address] [facility] [address] Advance Care Planning: Attempt Cardiopulmonary Resuscitation - Inpatient <no information> -Advanced Directive: No, declines (Boby (spouse) SDM) Current Functional Ability: Independent Functional Status Prior to Admission: Independent Home Environment: Others in the home: spouse. Current Living Arrangements: home/apartment/condo. Accessibility Concerns: . Current DME: none [address] [facility] [id number] Social & Family Supports: All names listed [...] private vehicle when medically ready. Registered Nurse Plant And Instrument Engineer / Pl Sql Programmer will continue to follow patient???s progress and remain available if situation changes for coordination of care, psychosocial support and/or discharge planning. Office of Care Management * Plan of Care - Colette Medina RN - 06/09/2021 1:06 AM EDT OUTCOME EVALUATION NOTE: OUTCOME SUMMARY: PT A+Ox4.PT c/o RUQ pain/lower back pain.Tramadol given for pain. BIPAP set up for patient. PT in SB 40s-50s. See tele report. PLAN MOVING FORWARD: NPO for cath INDIVIDUALIZED FALL PREVENTION INTERVENTIONS: Patient-specific fall risk factors per assessment: [current deficits]: Tele,BIPAP Assistance [level of assistance required for transfers and ambulation]: IND Supervision [direct monitoring required during toileting and ADLs]: IND Surveillance [continuous indirect monitoring]: Tele Patient-specific fall prevention interventions for sensory deficits provided, if applicable: Clutter free environment, bed in lowest position, call ghosh within reach CPG GOAL OUTCOME EVALUATION: Ongoing * Consult Note - Melany Kahn MD - 06/08/2021 12:02 AM EDT Neurology Admission History and Physical Patient name: Loida Roque Date of : 1970 PCP: Tim Rogers APRN Stroke Assessment: Date last well known:: 05/26/21 Time last well known:: 09 Date of discovery of symptoms:: 05/27/21 Time of discovery of symptoms:: 09 Date acute stroke team was at bedside:: 06/07/21 Time acute stroke team was at bedside:: 1900 CC: Transient garbled speech HPI: Loida Roque is a 51 y.o. female with pmhx of Migraine w/ Aura, Depression, HTN, MARYLOU who is admitted to the cardiology service for presumed NSTEMI. Neurology is consulted due to an episode of garbled speech the past had 1-2 weeks ago. Please see cardiology H&P on details of her current admission. Regarding the garbled speech, she states that she was speaking with her granddaughters and mother about a week or two ago and she noticed that her speech started to sound like giberish. It was like she knew what to say but the words were nonsensical. This lasted about a minute and does state that she had a terrible headache that day. She has a history of migraines that have been ongoing for many years wherein she sees bright white lights and then gets the headache. She has had a change in severity and frequency of the headache since her COVID infection and states that she has had a chronic daily headache for about three months now. She denied any past history of stroke-like symptoms, TIA, numbness/tingling, weakness of one side of her body or changes in her vision, hearing or swallowing ability. Home Medications: No current facility-administered medications on file prior to encounter. Current Outpatient Medications on File Prior to Encounter Medication Sig Dispense Refill ??? Emgality Pen 120 mg/mL Pen Injector INJECT 2ML ONCE SINGLE DOSE ONCE ??? rOPINIRole (Requip) 1 mg Tablet TAKE 1 TABLET BY MOUTH 2 3 HOURS BEFORE BEDTIME ??? traZODone (Desyrel) 50 mg Tablet TAKE 1 TO 2 TABLETS BY MOUTH AT BEDTIME ??? zafirlukast (Accolate) 20 mg Tablet TAKE ONE TABLET BY MOUTH TWICE A DAY ??? budesonide-formoteroL (SYMBICORT) 160-4.5 mcg/actuation HFA Aerosol Inhaler Inhale into the lungs. ??? diclofenac (VOLTAREN) 1 % Gel APPLY TO SINGLE KNEE ANKLE OR FOOT SOLES TOES TOP OF FOOT ONCE DAILY ??? loratadine (Claritin) 10 mg Tablet Daily. ??? fluticasone propionate (FLONASE) 50 mcg/actuation [place], Suspension 1 spray by Each Nare route daily. ??? gabapentin (Neurontin) 300 mg Capsule Take 300 mg by mouth 2 times daily. ??? hydrOXYzine (Atarax) 25 mg Tablet Take 25 mg by mouth every 6 hours as needed (Headache). ??? SUMAtriptan (Imitrex) 100 mg Tablet Take 100 mg by mouth as needed for Migraine. Initial dose: 25 mg, 50 mg, or 100 mg (take with fluids). May repeat dose after 2 hours. Max daily dose: 200 mg ??? topiramate (TOPAMAX) 50 mg Tablet Take 50 mg by mouth 2 times daily. 50 mg in the morning, 100 mg at bedtime ??? DULoxetine (CYMBALTA) 60 mg capsule Take 60 mg by mouth daily. ??? albuterol (PROVENTIL HFA;VENTOLIN HFA) 90 mcg/Actuation inhaler Inhale 2 puffs into the lungs every 4 hours as needed. Use with spacer Current Medications: Scheduled Meds: Past Medical & Surgical History: Past Medical History: Diagnosis Date ??? Asthma ??? Depression ??? Endometriosis S/p hysterectomy ??? Insomnia ??? Migraine ??? Obesity (BMI 30-39.9) ??? MARYLOU on CPAP ??? Seasonal allergies No past surgical history on file. Allergy: Allergies Allergen Reactions ??? Clobetasol Rash Family History: No family history on file. Social History: Social History Socioeconomic History ??? 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 Financial Resource Strain: Not on file Food Insecurity: Not on file Transportation Needs: Not on file Physical Activity: Not on file Housing Stability: Not on file Review of systems: Constitutional: No fevers or chills Eyes: No vision changes, no diplopia, no blurry vision ENT: No rhinorrhea or pharyngitis, no meningismus CV: + chest pain or palpitations Resp: No cough, no shortness of breath GI: No nausea, vomiting, diarrhea or constipation : No dysuria, no incontinence Heme: No bleeding or bruising Endo: No polyuria or cold intolerance Neuro: See HPI Psych: No depression, normal sleep [x] Review of systems otherwise negative Physical Exam: GCS Scale Vitals: Temp: [36.4 ??C (97.5 ??F)-36.8 ??C (98.2 ??F)] Heart Rate: [53-58] Resp: [17-18] BP: (118-139)/(62-72) SpO2: [95 %-96 %] Heart Rate from SpO2: -- Gen: Patient of apparent stated age, well nourished, well developed, awake, alert, NAD Ext: No edema. No bony deformity Neuro Exam: MS: [id number], clear language, no dysarthria, follows commands CN: PERRL, EOMI, visual teran full Facial sensation intact, no facial asymmetry, she does have asymmetric eye closure with blinking Hearing intact to finger rub Palate elevates symmetrically, tongue protrudes midline SCM and trap strength intact Motor: Normal bulk and tone. UE: 5/5 R, 5/5 L Arm abduction at shoulder 5/5 R, 5/5 L Elbow extension 5/5 R, 5/5 L Elbow flexion 5/5 R, 5/5 L Communication Equipment Mechanic LE: 5/5 R, 5/5 L Hip flexion 5/5 R, 5/5 L Knee extension 5/5 R, 5/5 L Knee flexion 5/5 R, 5/5 L Foot dorsiflexion 5/5 R, 5/5 L Foot plantar flexion Sensation: Intact to light touch Toes - R down, L down Coordination: Finger to nose intact, no dysmetria Rapid alternating movements & finger tapping smooth and symmetric Heel-fagan intact No tremor Gait: Deferred NIH Stroke Scale NIH Stroke Scale Date 06/07/21 NIH Stroke Scale Time 1900 Level of Consciousness 0 LOC Questions 0 LOC Commands 0 Best Gaze 0 Vision 0 Facial Palsy 0 Motor Arm, Left 0 Motor Arm, Right 0 Motor Leg, Left 0 Motor Leg, Right 0 Limb Ataxia 0 Sensory 0 Best Language 0 Dysarthria 0 Extinction and Inattention: 0 NIH Total Score 0 Labs: Recent Results (from the past 24 hour(s)) COVID-19 PCR Specimen: Nasopharyngeal Swab Symptoms->Surveillance Result Value Ref Range SARS-CoV-2 RNA PCR Not Detected Not Detected SARS-CoV-2 Source FOOD RUNNER Swab Troponin Result Value Ref Range Troponin-T <0.01 0.00 - 0.00 ng/mL Hemoglobin A1c Result Value Ref Range Hemoglobin A1C 5.6 4.3 - 5.6 % Est Avg Gluc 114 mg/dL CK Result Value Ref Range CK, Total 33 0 - 160 unit/L Lipid Panel (Reflex Direct LDL) Result Value Ref Range Chol, Total 164 mg/dL Triglycerides 144 mg/dL HDL 44 mg/dL LDL Cholesterol 91 mg/dL Chol/HDL Ratio 3.7 ratio Lipid Interpretation See Note Amylase Result Value Ref Range Amylase 39 28 - 100 unit/L Lipase Result Value Ref Range Lipase 18 0 - 60 unit/L TSH Result Value Ref Range TSH 5.83 (H) 0.27 - 4.20 mcIU/mL T4 Total Result Value Ref Range T4, total 6.8 5.3 - 11.6 mcg/dL T3 Total Result Value Ref Range T3, Total 134 80 - 200 ng/dL BMP w/fasting Glucose Result Value Ref Range Glucose Fasting 90 65 - 99 mg/dL BUN 18 8 - 18 mg/dL Creatinine 1.07 0.70 - 1.20 mg/dL Sodium 137 135 - 145 mmol/L Potassium 4.3 3.5 - 5.0 mmol/L Chloride 101 98 - 107 mmol/L CO2 24 22 - 31 mmol/L Anion Gap 12 5 - 15 mmol/L Calcium 9.1 8.5 - 10.5 mg/dL Estimated GFR 60 >=60 mL/min/1.73 m?? Hemogram Result Value Ref Range WBC 12.0 (H) 4.0 - 9.5 x10(3)/mcL RBC 4.72 4.00 - 5.21 x10(6)/mcL Hemoglobin 14.5 11.7 - 15.5 g/dL Hematocrit 44.0 35.7 - 45.8 % MCV 93.2 82.6 - 94.4 fL MCH 30.7 27.1 - 32.0 pg MCHC 33.0 31.7 - 35.0 g/dL Platelets 346 145 - 357 x10(3)/mcL RDWSD 47.2 (H) 37.0 - 46.0 fL RDWCV 14.4 (H) 11.5 - 14.1 % MPV 10.6 7.6 - 12.9 fL nRBC % Auto 0.0 % nRBC Abs Auto 0.000 0.000 - 0.000 x10(3)/mcL Differential, Automated Result Value Ref Range Neutrophils % 74.6 % Neutr Abs (ANC) 8.97 (H) 1.70 - 6.10 x10(3)/mcL Lymphocytes % 15.9 % Lymphocytes Abs 1.9 0.9 - 3.2 x10(3)/mcL Monocytes % 6.0 % Monocyte Abs 0.7 0.3 - 0.9 x10(3)/mcL Eosinophils % 2.6 % Eosinophils Abs 0.3 0.0 - 0.4 x10(3)/mcL Basophils % 0.5 % Basophils Abs 0.1 0.0 - 0.1 x10(3)/mcL Immature Gran % 0.40 % Shonda Gran Abs 0.05 (H) 0.00 - 0.04 x10(3)/mcL pro-Brain Natriuretic Peptide Result Value Ref Range ProBNP 2,701 (H) <=124 pg/mL Heparin (unfractionated) Level Result Value Ref Range Heparin UFH Level 0.08 IU/mL Assessment and Plan: Loida Roque is a 51 y.o. female with pmhx of Migraine w/ Aura, Depression, HTN, MARYLOU who is admitted to the cardiology service for presumed NSTEMI. Neurology is consulted due to an episode of garbled speech the past had 1-2 weeks ago. Her neurological exam at this time is nonfocal. She does have some asymmetric eye closure at rest but equal when purposeful. Her symptoms of the garbled speech can be see with severe migraines especially in the setting of no other focal neurological deficits. Other things that can be on the differential would be a TIA as she does have risk factors or a seizure. It is reassuring that this has not recurred. Given a normal exam, you can consider CTH for baseline imaging prior to cardiac cath if there is a concern that her episode was more in like with a stroke (although less likely). Feel free to contact if she has new focal neurological deficits. Alteplase: Alteplase decision time: 1899 Was Alteplase given?: No Other reasons (Hospital related or other factors). Select all that apply: Other (specify) Specify other reason(s) for no IV thrombolytic: No stroke Recommendations -Can obtain baseline CTH Melany Kahn MD Vascular Neurology Standard [facility] Swallow Screen: This screen is to be used to document a Swallow Screen prior to ingestion of water and /or oral medications for patients with possible stroke (Ischemic or Hemorrhagic). Exclusion Criteria: A swallow screen is not to be performed on patients who: ?? have a decreased level of consciousness. ?? are not able to follow simple commands. ?? are hypoxic, or have increasing O2 needs or may need to be intubated. ?? have a G/J tube for nutrition. ?? have a recent history of a swallowing disorder *These patients should remain NPO (HOLD MEDS) and the physician notified for further orders. Swallow Screen Using Water: None of the Exclusion Criteria as mentioned above is present? Patient is alert and sitting upright? Able to close lips and tongue is midline? Able to cough, manage oral secretions with dry voice? ONLY IF ABOVE ALL YES, Able to swallow 30 ml of water without coughing, displaying a wet voice or choking? Repeat Twice. ??? If YES to all responses, proceed with water and oral medications as well as diet as medical provider deems appropriate. Consider INSURANCE REPRESENTATIVE consult for full evaluation and diet recommendations. ??? If NO to any of the responses, stop immediately, keep patient NPO and notify physician. Associated attestation - Rosa Sullivan MD - 06/08/2021 10:24 AM EDT I saw and evaluated the patient with the resident. I have reviewed the medical records and the patient's history during the visit and I agree with the details as written. My physical examination confirms the findings. The assessment and plan were formulated in discussion with me at the time of the visit and I agree with them as documented. Rosa Sullivan MD * Plan of Care - Luiza Armstrong RN - 06/07/2021 6:25 PM EDT OUTCOME EVALUATION NOTE: OUTCOME SUMMARY: Pt arrived to unit around 1545. A+Ox4, on RA. SB on tele- see scanned docs.Reports abdominal pain radiating to lower back that she describes as steady and constant pain. Team aware. Denies need forany pain-relieving medication at this time. Heparin gtt running per protocol. PLAN MOVING FORWARD: NPO at midnight for cath 06/08 ECHO [facility] due at 2200 INDIVIDUALIZED FALL PREVENTION INTERVENTIONS: Patient-specific fall risk factors per assessment: [current deficits]: tele wires, unfamiliar environment, IV tubing Assistance [level of assistance required for transfers and ambulation]: SBA Supervision [direct monitoring required during toileting and ADLs]: Eyes on Surveillance [continuous indirect monitoring]: tele, purposeful rounding, call ghosh within reach Patient-specific fall prevention interventions for sensory deficits provided, if applicable: Room near RN station, door open, non-skids socks on when OOB, lighting adjusted for specific tasks/activities, bed in lowest locked position. CPG GOAL OUTCOME EVALUATION: Ongoing * Plan of Care - Deja Zaidi PA - 06/07/2021 5:46 PM EDT Images from the original note [...] consent which was reviewed and signed. ASA: 3: Patient with severe systemic disease Mallampati: II: tonsillar pillars are blocked by the tongue Sedation Plan: moderate (conscious sedation) Assessment and Plan: Proceed with cardiac cath today, see progress note from today for further details. JOCY MCKOY 06/07/2021 Pager [phone] documented in this encounter Plan of Treatment Upcoming Encounters Date Type Department Care Team (Late st Contact Info) Description 10/08/2023 8:30 AM EDT Tech [place] [phone] Jose Cook 10/08/2023 9:30 AM EDT Office [place] [phone] MD [facility] [place] [address] 10/21/2023 10:30 AM EDT Appointment [place] [phone] Mary Reyes, ROM [facility] GASTROENTEROLOGY [place], [place] [phone] 10/21/2023 11:30 AM EDT Appointment [place] [address] Mary Reyes [facility] [place] [address] 10/21/2023 12:30 PM EDT Appointment [place] [address] Mary Reyes [facility] [place] [address] 10/21/2023 1:30 PM EDT Appointment [place] [address] Mary Reyes [facility] [place] [address] 10/21/2023 2:30 PM EDT Appointment [place] [address] Mary Reyes [facility] [place] [address] 10/26/2023 4:00 PM EDT Office Visit Cardiology at [address] [phone] Jaspreet Kinsey MD [facility] [place] [address] 10/28/2023 9:00 AM EDT Office Visit [place] [address] 10/29/2023 10:00 AM EDT Clinical Support [place] [address] 10/29/2023 10:15 AM EDT Procedure visit [place] [address] 11/01/2023 5:00 PM EDT Office [place] [address] Selene Browning, PhD [facility] [place] [address] 11/22/2023 4:40 PM EDT Office Visit Cardiology at [address] [phone] Porsha Mcdaniels MD [facility] [place] [address] 12/13/2023 10:00 AM EDT Clinical [place] [address] Lucero Romero, [place] [facility] [place] [address] documented as of this encounter Procedures Procedure Name Priority Date/Time Associated Diagnosis Comments CARDIAC CATHETERIZATION Routine 06/10/19 9:05 AM EDT HC VENIPUNCTURE Routine 06/09/2021 3:37 AM EDT HEMOGRAM Routine 06/09/2021 3:37 AM EDT DIFFERENTIAL, AUTOMATED Routine 06/10/19 3:37 AM EDT HC CBC,PLT & AUTO DIFF Routine 3:37 AM EDT PRO-BRAIN NATRIURETIC PEPTIDE Routine 06/09/2021 3:37 AM EDT HC UNFRACTIONATED HEPARIN (HEP UFH) Routine 06/08/2021 4:07 PM EDT XR CHEST PA AND LATERAL Routine 06/09/19 3:36 PM EDT MRI BRAIN WO CONTRAST Routine 06/08/2021 1:05 PM EDT HC C-REACTIVE PROTEIN Routine 06/08/2021 11:58 AM EDT HC UNFRACTIONATED HEPARIN (HEP UFH) Routine 06/08/2021 11:58 AM EDT HC ESR-SEDIMENTATION RATE, BLOOD Routine 06/08/2021 11:58 AM EDT HC CREATINE PHOSPHOKINASE, SERUM Routine 06/08/2021 11:58 AM EDT HC TEST, QUAL, URINE Routine 06/08/2021 11:51 AM EDT ECHO COMPLETE W CONTRAST Routine 06/08/2021 11:09 AM EDT NSTEMI (non-ST elevated myocardial infarction) HC UNFRACTIONATED HEPARIN (HEP UFH) STAT 06/08/2021 5:54 AM EDT HC UNFRACTIONATED HEPARIN (HEP UFH) Routine 06/08/2021 4:41 AM EDT HC VENIPUNCTURE Routine 06/08/2021 4:41 AM EDT HEMOGRAM Routine 06/08/2021 4:41 AM EDT DIFFERENTIAL, AUTOMATED Routine 06/09/19 4:41 AM EDT HC CBC,PLT & AUTO DIFF Routine 4:41 AM EDT HC TROPONIN T STAT 06/08/2021 4:41 AM EDT HC UNFRACTIONATED HEPARIN (HEP UFH) Routine 06/07/2021 9:55 PM EDT BMP W/FASTING GLUCOSE STAT 06/07/2021 5:26 PM EDT HEMOGRAM STAT 06/07/2021 5:26 PM EDT DIFFERENTIAL, AUTOMATED STAT 06/08/19 5:26 PM EDT HC CBC,PLT & AUTO DIFF STAT 5:26 PM EDT HC TOTAL T3 Routine 06/07/2021 5:26 PM EDT HC THYROID STIMULATING HORMONE, SERUM Routine 06/07/2021 5:26 PM EDT HC TOTAL T4 Routine 06/07/2021 5:26 PM EDT PRO-BRAIN NATRIURETIC PEPTIDE Routine 06/07/2021 5:26 PM EDT HC LIPASE Routine 06/07/2021 5:26 PM EDT HC CREATINE PHOSPHOKINASE, SERUM Routine 06/07/2021 5:26 PM EDT HC AMYLASE Routine 06/07/2021 5:26 PM EDT LIPID PANEL (REFLEX DIRECT LDL) Routine 06/07/2021 5:26 PM EDT HC TROPONIN T STAT 06/07/2021 5:04 PM EDT HC HEMOGLOBIN A1C Routine 06/07/2021 5:0 4 PM EDT EKG 12-LEAD Routine 06/07/2021 4:33 PM EDT NSTEMI (non-ST elevated myocardial infarction) RAPID COVID-19 PCR (MH/APD/NLH) Routine 06/07/2021 4:30 PM EDT documented in this encounter Results * Ziopatch 48 Hrs-15 Days (06/09/2021 3:48 PM EDT) Anatomical Region Laterality Modality Other Narrative 07/01/2021 9:29 AM EDT [facility] ? Zio Patch? Ambulatory Cardiac Event Monitor Report Study Dates: 06/09/21, 03:44pm to 06/22/21, 07:33pm Study available for interpretation 06/30/21 Analysis Time: 12 days and 19 hours (after artifact removed) Indication(s) provided: elevated BP Summary Data Predominant rhythm : sinus rhythm ??, Range 38-108 BPM , Average rate 57 BPM Atrial fibrillation : ??None seen Ectopic beats There were rare atrial premature beats, couplets and triplets (<1% each) ?? There were 21 supraventricular runs the fastest lasting 1 hour 49 mins with a max rate of 184 bpm (avg 153 bpm); the fastest run was also the longest. 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 Triggered and Patient Diary Events There were no patient-triggered events. There was a single patient diary entry made on 06/13/21 at 07:45pm reporting skipped/irregular beat(s), short of breath, pounding, lightheaded, chest pain/pressure, pain/tingling (in neck or arm) while sitting which showed sinus rhythm at 50 BPM without ectopy. Conclusion(s): ?? Predominant sinus rhythm averaging 57 BPM. 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 Kurt Larose MD, PhD, [facility] Cardiac Electrophysiology Mario Hallman MD CARDIAC SERVICES ORD ERABLES * CARDIAC CATHETERIZATION (06/09/2021 9:05 AM EDT) Anatomical Region Laterality Modality Other Narrative 06/09/2021 9:09 AM EDT ?[facility] ? Cardiac Catheterization/Intervention Report ? Patient Name: Neisha, Loida ? Procedure Date: 06/09/2021 ? A #: [id number] ? Primary Physician: Aaron Ash ? Case #: [id number] ? File Name: [id number] ? Catheterization Order Number: [id number] ? [facility] ? Final Report [place], [place] ? Patient Name: ? Loida Neisha ? ID#: ?[id number] ? : ?1970 ? Procedure Date: ? June 09, 2021 ?Case #: ? [id number] ? Room: ? 1 ? Case Physician: ? Aaron Ash M.D. ? Start: ?08:31 ?Fellow: ? Poncho Yates M.D. ?Admission: ??06/07/2021 ? Procedures: ?* Right Heart Catheterization ?* Oximetry ? History ?Loida Roque is a 51 year old woman. She has hypertension. The ?patient's smoking status is Never. She has hypercholesterolemia managed ?with lipid therapy. The patient is also status post a remote myocardial ?infarction. Prior to the initiation of this procedure, the patient was ?designated as ASA Class III. The CSHA clinical frailty scale is 2: Well. ? Diagnostic Tests: ?Prior Coronary Angiography: ? Prior coronary angiography was performed on 08/30/2019 and showed no ? CAD. LV ejection fraction within 6 months is 61%. ?Electrocardiography: ? EKG was assessed by ECG. EKG was Abnormal. EKG showed other ? abnormality. ?Medications Prior to Procedure: ? Angiotensin Converting Enzyme Inhibitor, Aspirin, Beta Shu and ? Statin. ? Indications for Diagnostic Cath: ?The priority of the diagnostic procedure was Urgent. The indication for ?the general labor visit is other indication. Chest pain symptom assessment ?was: Asymptomatic. ? Technique: ?A 6Fr sheath was inserted in the right median antecubital vein utilizing ?the Seldinger technique. Right heart catheterization was performed ?utilizing a 6Fr BALLOON WEDGE catheter. A total of 50cc of Omnipaque were ?opened, 1cc of Omnipaque were administered and 49cc of Omnipaque were ?wasted. Radiation: Fluoro time was 2.1 minutes, dose area product was ?4,120 mGYcm2 and air kerma was 17 mGY. See the case log for additional ?details. ?The patient received the following medications prior to and during the ?procedure: ? Low Molecular Weight Heparin. ? Hemodynamics: ?Right Heart Pressures ? Resting: ? Syst Diast ? EDP ?a ?v ? m ?RA ? 8 ?5 ? 4 ?RV 40 ?7 ?PA 38 ?15 ?24 ?PCW ?15 ?13 ?11 ? Hemodynamic Profile: ?Profile 1 ?CO ? 3.14 ?CI ? 1.57 ?TPR ?611 ?PVR ?331 ? Oximetry: ?Location ? %Sat ?Location ?%Sat ?Superior Vena Cava ? 55.0 ?Main Pulmonary Artery ?? 56.0 ?Pulmonary Capillary ?89.0 ?peripheral pulse ox ? 97.0 ?Wedge ?No evidence of a significant shunt was noted. ? Indication for Selected Procedures: ?Right Heart catheterization was initiated for Pulmonary hypertension, ?unspecified (I27.20). ? Vascular Access: ?Vascular Access Management: ? Manual Compression of the right median antecubital vein access site ? was performed. ? Conclusions: ?* No evidence of a significant shunt ?* Mild pulmonary hypertension ? Complications/Events: ?The patient had no complications during these procedures. ?The attending physician was present for the entire procedure. ?Dr. Aaron Ash M.D. performed the right heart catheterization and ?oximetry. ? Aaron Ash M.D. ? Electronically Signed by: Aaron sAh M.D. ? Report Finalized: 06/09/2021 ??09:01 ? Report Last Ammended: 06/23/2021 ??09:51 ? Procedure Note Aaron Ash MD - 06/23/2021 [facility] Cardiac Catheterization/Intervention Report Patient Name: Loida Roque Procedure Date: 06/09/2021 A #: [id number] Primary Physician: Aaron Ash Case #: [id number] File Name: [id number] Catheterization Order Number: [id number] [facility] FinalReport [place], [place] Patient Name: Loida Roque ID#:[id number] :1970 Procedure Date: June 09, 2021 Case #: [id number] Room: 1 Case Physician: Aaron Ash M.D. Start: 08: Fellow: Poncho Yates M.D. Admission:06/07/2021 Procedures: * Right Heart Catheterization * Oximetry History Loida Roque is a 51 year old woman. She has hypertension. The patient's smoking status is Never. She has hypercholesterolemiamanaged with lipid therapy. The patient is also status post a remotemyocardial infarction. Prior to the initiation of this procedure, the patientwas designated as ASA Class III. The [facility] clinical frailty scale is 2:Well. Diagnostic Tests: Prior Coronary Angiography: Prior coronary angiography was performed on 08/30/2019 andshowed no CAD. LV ejection fraction within 6 months is 61%. Electrocardiography: EKG was assessed by ECG. EKG was Abnormal. EKG showed other abnormality. Medications Prior to Procedure: Angiotensin Converting Enzyme Inhibitor, Aspirin, Beta Blockerand Statin. Indications for Diagnostic Cath: The priority of the diagnostic procedure was Urgent. The indicationfor the general labor visit is other indication. Chest pain symptomassessment was: Asymptomatic. Technique: A 6Fr sheath was inserted in the right median antecubital veinutilizing the Seldinger technique. Right heart catheterization was performed utilizing a 6Fr BALLOON WEDGE catheter. A total of 50cc of Omnipaquewere opened, 1cc of Omnipaque were administered and 49cc of Omnipaquewere wasted. Radiation: Fluoro time was 2.1 minutes, dose area productwas 4,120 mGYcm2 and air kerma was 17 mGY. See the case log foradditional details. The patient received the following medications prior to and duringthe procedure: Low Molecular Weight Heparin. Hemodynamics: Right Heart Pressures Resting: Syst Diast EDP a v m RA 8 5 4 RV 40 7 PA 38 15 24 PCW 15 13 11 Hemodynamic Profile: Profile 1 CO 3.14 CI 1.57 TPR 611 PVR 331 Oximetry: Location %Sat Location %Sat Superior Vena Cava 55.0 Main Pulmonary Artery 56.0 Pulmonary Capillary 89.0 peripheral pulse ox 97.0 Wedge No evidence of a significant shunt was noted. Indication for Selected Procedures: Right Heart catheterization was initiated for Pulmonaryhypertension, unspecified (I27.20). Vascular Access: Vascular Access Management: Manual Compression of the right median antecubital vein accesssite was performed. Conclusions: * No evidence of a significant shunt * Mild pulmonary hypertension Complications/Events: The patient had no complications during these procedures. The attending physician was present for the entire procedure. Dr. Aaron Ash M.D. performed the right heart catheterization and oximetry. Aaron Ash M.D. Electronically Signed by: Aaron Ash M.D. Report Finalized: 06/09/2021 09:01 Report Last Ammended: 06/23/2021 09:51 Aaron Ash MD CARDIAC CATH ORDERAB LES * (ABNORMAL) pro-Brain Natriuretic Peptide (06/09/2021 3:37 AM EDT) Pathologist [facility] ProBNP 911(H) <=124 pg/mL [facility] Blood Venous Draw / Unknown 06/09/2021 3:37 AM EDT 06/09/2021 3:59 AM EDT Narrative Resulting Agency Comment Spec In Lab Deja SANDRA CHEMISTRY ORDERABLES [facility] [place] [address] * Differential, Automated (06/09/2021 3:37 AM EDT) [facility] Neutrophils % 64.9 % [facility] Neutr Abs (ANC) 5.12 1.70 - 6.10 x10(3)/[facility] Lymphocytes % 21.9 % [facility] Lymphocytes Abs 1.7 0.9 - 3.2 x10(3)/[facility] Monocytes % 8.6 % [facility] Monocyte Abs 0.7 0.3 - 0.9 x10(3)/[facility] Eosinophils % 3.4 % [facility] Eosinophils Abs 0.3 0.0 - 0.4 x10(3)/[facility] Basophils % 0.8 % [facility] Basophils Abs 0.1 0.0 - 0.1 x10(3)/[facility] Immature Gran % 0.40 % [facility] Comment: Immature granulocytes(IG's)percentage and absolute count will include metamyelocytes, myelocytes, and promyelocytes. Blood smears from CBCs yielding IG's will be scanned manually for concordance. If this scan disagrees with the automated IG or if promyelocytes are noted, a manual differential will be performed. Shonda Gran Abs 0.03 0.00 - 0.04 x10(3)/[facility] Blood 06/09/2021 3:37 AM EDT 06/09/2021 3:58 AM EDT Narrative Resulting Agency Comment Spec In Lab Deja SANDRA HEMATOLOGY ORDERABLE S [facility] [place] [address] * (ABNORMAL) Hemogram (06/09/2021 3:37 AM EDT) WBC 7.9 4.0 - 9.5 x10(3)/[facility] RBC 4.88 4.00 - 5.21 x10(6)/[facility] Hemoglobin 15.2 11.7 - 15.5 g/dL [facility] Hematocrit 46.5(H) 35.7 - 45.8 % [facility] MCV 95.3(H) 82.6 - 94.4 [facility] MCH 31.1 27.1 - 32.0 pg [facility] MCHC 32.7 31.7 - 35.0 g/dL [facility] Platelets 334 145 - 357 x10(3)/[facility] RDWSD 49.2(H) 37.0 - 46.0 [facility] RDWCV 14.5(H) 11.5 - 14.1 % [facility] MPV 10.2 7.6 - 12.9 [facility] nRBC % Auto 0.0 % [facility] nRBC Abs Auto 0.000 0.000 - 0.000 x10(3)/[facility] Blood 06/09/2021 3:37 AM EDT 06/09/2021 3:58 AM EDT Narrative Resulting Agency Comment Spec In Lab Deja SANDRA HEMATOLOGY ORDERABLE S [facility] [place] [address] * (ABNORMAL) BMP w/fasting Glucose (06/09/2021 3:37 AM EDT) Glucose Fasting 103(H) 65 - 99 mg/dL [facility] Comment: ?Fasting* Glucose Interpretive Criteria [...] of Diabetes Mellitus, Position Statement from the [place] [employer]. ??Diabetes Care, Volume 33, Supplement 1, Mar 2009 BUN 23(H) 8 - 18 mg/dL [facility] Creatinine 0.86 0.70 - 1.20 mg/dL [facility] Sodium 137 135 - 145 mmol/L [facility] Potassium 4.1 3.5 - 5.0 mmol/L [facility] Comment: Please note: ??Patients with WBC >100,000 may have falsely elevated Potassium levels. ??For accurate Potassium quantification in these patients send serum separator tube (gold top) for subsequent determinations. ??Contact the Clinical Chemistry Laboratory if there are any questions. Chloride 102 98 - 107 mmol/L [facility] CO2 22 22 - 31 mmol/L [facility] Anion Gap 13 5 - 15 mmol/L [facility] Calcium 9.3 8.5 - 10.5 mg/dL [facility] Estimated GFR 78 >=60 mL/min/1. 73 m?? [facility] Comment: This patient? s estimated glomerular filtration rate (eGFR) is between 78 mL/min/1.73 m2 (patients with less muscle mass) and 90 mL/min/1.73 m2 (patients with more muscle mass) [...] and symptoms in addition to eGFR. Blood 06/09/2021 3:37 AM EDT 06/09/2021 3:58 AM EDT Narrative Resulting Agency Comment Spec In Lab Mario Hallman MD CHEMISTRY ORDERABLES [facility] [place] [address] * Heparin (unfractionated) Level (06/08/2021 4:07 PM EDT) Heparin UFH Level <0.04 IU/mL [facility] Comment: Heparin (anti-Xa) levels should [...] cardiac surgery): 0.1 ? 0.3 IU/mL Blood 06/08/2021 4:07 PM EDT 06/08/2021 4:11 PM EDT Narrative Resulting Agency Comment Spec In Lab Mario Hallman MD HEMATOLOGY ORDERABLE S [facility] [place] [address] * XR Chest PA & Lateral (Generic) (06/08/2021 3:36 PM EDT) Anatomical Region Laterality Modality Chest N/A Digital Radiogra phy Impressions 06/08/2021 6:00 PM EDT Impression: Subtle airspace opacity left lower lobe; differential includes atelectasis, aspiration, early pneumonia. Right lung is clear. No effusion. No pneumothorax. Thank you for letting us participate in the care of this patient. ??If you are a health care provider and have any questions regarding this report, please contact the number below. ??For patients who have questions please contact the health care aid that requested 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 ? Narrative 06/08/2021 6:00 PM EDT EXAMINATION: XR CHEST PA AND LATERAL (GENERIC) CLINICAL HISTORY: HF TECHNIQUE: PA and lateral standing chest COMPARISON: Multiple priors, most recent 05/02/2021 FINDINGS: Examination demonstrates a subtle patchy opacity in the left retrocardiac region. The right lung is clear. The cardiomediastinal silhouette is stable. No pleural effusion. No pneumothorax. Posttraumatic deformity right clavicle. No acute osseous lesion. Procedure Note Magda Machado MD - 06/08/2021 EXAMINATION: XR CHEST PA AND LATERAL (GENERIC) CLINICAL HISTORY: HF TECHNIQUE: PA and lateral standing chest COMPARISON: Multiple priors, most recent 05/02/2021 FINDINGS: Examination demonstrates a subtle patchy opacity in the left retrocardiac region. The right lung is clear. The cardiomediastinalsilhouette is stable. No pleural effusion. No pneumothorax. Posttraumatic deformityright clavicle. No acute osseous lesion. IMPRESSION Impression: Subtle airspace opacity left lower lobe; differential includesatelectasis, aspiration, early pneumonia. Right lung is clear. No effusion. Nopneumothorax. Thank you for letting us participate in the care of this patient. If youare a health care provider and have any questions regarding this report,please contact the number below. For patients who have questions please contactthe health care aid that requested 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 Electronically signed by: Magda Machado MD, [facility] ([phone]), at 06/08/2021 6:00 PM Mario Hallman MD IMG DX ORDERABLES * MRI Brain wo Contrast (06/08/2021 1:05 PM EDT) Anatomical Region Laterality Modality Head Magnetic Resonan ce Impressions 06/08/2021 2:35 PM EDT Normal noncontrast brain MRI. Thank you for letting us participate in the care of this patient. ??If you are a health care provider and have any questions regarding this report, please contact the number below. ??For patients who have questions please contact the health care aid that requested 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 ? Narrative 06/08/2021 2:35 PM EDT EXAMINATION: MRI BRAIN WO CONTRAST CLINICAL HISTORY: Dizziness, non-specific patient had garbled speech a week ago. Now resolved TECHNIQUE: MRI of the brain performed without intravenous contrast administration. COMPARISON: None FINDINGS: Cerebral and cerebellar volume are normal. No areas of restricted diffusion are identified. No magnetic susceptibility abnormalities are identified. FLAIR images show no significant areas of abnormal signal intensity. The T2-weighted images reveal a normal appearance of the major flow voids, brain parenchyma and extra-axial spaces. Procedure Note Kiran Cantor MD - 06/08/2021 EXAMINATION: MRI BRAIN WO CONTRAST CLINICAL HISTORY: Dizziness, non-specific patient had garbled speech a week ago. Now resolved TECHNIQUE: MRI of the brain performed without intravenous contrast administration. COMPARISON: None FINDINGS: Cerebral and cerebellar volume are normal. No areas of restricteddiffusion are identified. No magnetic susceptibility abnormalities are identified.FLAIR images show no significant areas of abnormal signal intensity. TheT2-weighted images reveal a normal appearance of the major flow voids, brainparenchyma and extra-axial spaces. IMPRESSION Normal noncontrast brain MRI. Thank you for letting us participate in the care of this patient. If youare a health care provider and have any questions regarding this report,please contact the number below. For patients who have questions please contactthe health care aid that requested 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 Mario Hallman MD IMG MRI ORDERABLES * (ABNORMAL) CRP, acute inflammation (06/08/2021 11:58 AM EDT) CRP 28.1(H) <=4.9 mg/L [facility] Blood 06/08/2021 11:5 8 AM EDT 06/08/2021 12:04 PM EDT Narrative Resulting Agency Comment Spec In Lab Mario Hallman MD CHEMISTRY ORDERABLES [facility] [place] [place] [address] * CK (06/08/2021 11:58 AM EDT) Pathologist [facility] CK, Total 30 0 - 160 unit/L [facility] Blood 06/08/2021 11:5 8 AM EDT 06/08/2021 12:04 PM EDT Narrative Resulting Agency Comment Spec In Lab Mario Hallman MD CHEMISTRY ORDERABLES Performing Organization Address [facility] Co de Phone Number [facility] [place] [address] * (ABNORMAL) Sedimentation rate (06/08/2021 11:58 AM EDT) [facility] Sed Rate 53(H) 2 - 39 mm/hr [facility] Comment: Effective February 15, 2019 new capillary photometric technology has resulted in a change in reference ranges. It is recommended that each ESR result be reviewed with its own age appropriate reference range. Blood 06/08/2021 11:5 8 AM EDT 06/08/2021 12:04 PM EDT Narrative Resulting Agency Comment Spec In Lab Mario Hallman MD HEMATOLOGY ORDERABLE S Performing Organization Address [facility] de Phone Number [facility] [place] [address] * Heparin (unfractionated) Level (06/08/2021 11:58 AM EDT) [facility] Heparin UFH Level 0.77 IU/mL [facility] Comment: Heparin (anti-Xa) levels should [...] cardiac surgery): 0.1 ? 0.3 IU/mL Blood 06/08/2021 11:5 8 AM EDT 06/08/2021 12:04 PM EDT Narrative Resulting Agency Comment Spec In Lab Mario Hallman MD HEMATOLOGY ORDERABLE S Performing Organization Address [facility] Co de Phone Number [facility] [place] [address] * urine, qualitative ([place]/[facility]) (06/08/2021 11:51 AM EDT) Spec [place] UA 1.010 1.006 - 1.030 [facility] HCG Qual Negative [facility] Comment: Dilute urine samples can result in a false negative test. Repeat testing on a first morning sample or a plasma quantitative hCG measurement is recommended. Urine 06/08/2021 11:5 1 AM EDT 06/08/2021 12:32 PM EDT Narrative Resulting Agency Comment Spec In Lab Mario Hallman MD URINE ORDERABLES Performing Organization Address [facility] de Phone Number [facility] [place] [address] * ECHO COMPLETE W CONTRAST (06/08/2021 11:09 AM EDT) Anatomical Region Laterality Modality Other 06/08/2021 9:35 AM EDT Narrative 06/08/2021 12:42 PM EDT ?[facility] ?[address] ? [place] [address] ?Voice: ?Fax: ? Echocardiogram Report Name: NEISHA, LOIDA ? Study Date: 06/08/2021 09:35 AMBP: 109/69 mmHg ? Patient Location: ICCU^432^A : 1970 ? Height: 163 cm ? Account: [id number] Age: 51 yrs ? Weight: 95 kg Gender: Female ?BSA: 2.0 m2 Ordering Physician: DONALD Referring Physician: AJ HARTMAN Performed By: Aaron Herr RDCS Reason For Study: NSTEMI (non-ST elevated myocardial infarction) Exam Location: [facility]. Interpretation Summary 1. Left ventricle is of [...] No significant change from prior in 08/2019. Procedure Complete-[id number]. Image enhancement Definity was used for left ventricular opacification. Suboptimal quality. This study is limited because of body habitus. There is normal sinus rhythm. Left Ventricle Left ventricle is of normal size. Wall thickness is normal. The left ventricular ejection fraction is 61% by Reyes's biplane. Left ventricular systolic function is normal. There are no segmental wall motion abnormalities. Right Ventricle The right ventricle is of normal size. Right ventricular systolic function is normal. Left Atrium The left atrium is severely dilated. LAESV Index 73 ml/m2. The left atrium is not well visualized. No abnormality of the interatrial septum is identified. There is no evidence for a patent foramen ovale. Right Atrium The right atrium is not well visualized. Aortic Valve The aortic valve is tricuspid. [...] stenosis. There is trace pulmonic valve regurgitation. Great Arteries The aortic root is of normal size. No abnormalities are identified. Ascending aorta is normal in size. Venous Inferior vena cava is normal in size. Inferior vena cava collapse greater than 50% with respiration. Pericardium/Pleural The pericardium appears normal. There is no pericardial effusion. Hemodynamics Pulmonary artery hypertension could not be assessed due to inadequate tricuspid regurgitation jet. Left ventricular diastolic function is indeterminate. Left ventricular filling pressure is normal. Ejection Fraction ?2D Measurements ? Volumes LV Biplane EF: 60.7 % ? Ao root diam: 2.4 cm ? LA Volume Index: ?Ao root diam index: 1.2 ?asc Aorta Diam: 3.4 cm ? 73.0 ml/m2 ?LVOT diam: 1.7 cm ?EDV Biplane: 95.0 ml ? EDV Biplane Index: 47.6 ? ESV Biplane: 37.3 ml ? ESV Biplane Index: 18.7 Doppler MV E max ilir: 39.0 cm/sec MV A max ilir: 20.9 cm/sec MV E/A: 1.9 MV dec time: 0.22 sec Lat Peak E' Ilir: 4.5 cm/sec E/ e' (lat): 8.6 Med Peak E' Ilir: 4.4 cm/sec E/e' (med): 8.9 E/e' Average: 8.8 I ?WMSI = 1.00 ? % Normal = 100 ?Segments ??Size X - Cannot ?? 1 - Normal ?? 2 - ? 3 - Akinetic 4 - ?1-2 ? small Interpret ? Hypokinetic ?Dyskinetic ?? 3-5 ? moderate 5 - ? 6-14 ?large Aneurysmal ?15-16 ?? diffuse Procedure Note Kai Haider MD - 06/08/2021 [facility] [address] [place] [address] Voice: Fax: Echocardiogram Report Name: LOIDA ROQUE Study Date: 209:35 AMBP: 109/69 mmHg Patient Location:[address] : 1970 Height: 163 cm Account: [id number] Age: 51 yrs Weight: 95 kg Gender: Female BSA: 2.0 m2 Ordering Physician: DONALD Referring Physician: AJ HARTMAN Performed By: Aaron Herr RDCS Reason For Study: NSTEMI (non-ST elevated myocardial infarction) Exam Location: [facility]. Interpretation Summary 1. Left ventricle is of normal size. Wall thickness is normal. The left ventricular ejection fraction is 61% by Reyes's biplane. Leftventricular systolic function is normal. There are no segmental wall motionabnormalities.Left ventricular filling pressure is normal. 2. The right ventricle is of normal size. Right ventricular systolicfunction is normal. Pulmonary artery hypertension could not be assessed due toinadequate tricuspid regurgitation jet. 3. The atria are not well seen but the left atrium appears at leastmoderately dilated. 4. No significant valve disease. No significant change from prior in 08/2019. Procedure Complete-[id number]. Image enhancement Definity was used for left ventricular opacification. Suboptimal quality. This study is limited because of bodyhabitus. There is normal sinus rhythm. Left Ventricle Left ventricle is of normal size. Wall thickness is normal. The leftventricular ejection fraction is 61% by Reyes's biplane. Left ventricular systolicfunction is normal. There are no segmental wall motion abnormalities. Right Ventricle The right ventricle is of normal size. Right ventricular systolic functionis normal. Left Atrium The left atrium is severely dilated. LAESV Index 73 ml/m2. The left atriumis not well visualized. No abnormality of the interatrial septum is identified.There is no evidence for a patent foramen ovale. Right Atrium The right atrium is not well visualized. Aortic Valve The aortic valve is tricuspid. [...] stenosis. There is trace pulmonic valve regurgitation. Great Arteries The aortic root is of normal size. No abnormalities are identified.Ascending aorta is normal in size. Venous Inferior vena cava is normal in size. Inferior vena cava collapse greaterthan 50% with respiration. Pericardium/Pleural The pericardium appears normal. There is no pericardial effusion. Hemodynamics Pulmonary artery hypertension could not be assessed due to inadequatetricuspid regurgitation jet. Left ventricular diastolic function is indeterminate.Left ventricular filling pressure is normal. Ejection Fraction 2D Measurements Volumes LV Biplane EF: 60.7 % Ao root diam: 2.4 cm LA VolumeIndex: Ao root diam index: 1.2 asc Aorta Diam: 3.4 cm 73.0 ml/m2 LVOT diam: 1.7 cm EDV Biplane: 95.0ml EDV BiplaneIndex: 47.6 ESV Biplane: 37.3ml ESV BiplaneIndex: 18.7 Doppler MV E max ilir: 39.0 cm/sec MV A max ilir: 20.9 cm/sec MV E/A: 1.9 MV dec time: 0.22 sec Lat Peak E' Ilir: 4.5 cm/sec E/ e' (lat): 8.6 Med Peak E' Ilir: 4.4 cm/sec E/e' (med): 8.9 E/e' Average: 8.8 I WMSI = 1.00 % Normal = 100 SegmentsSize X - Cannot 1 - Normal 2 - 3 - Akinetic 4 - 1-2small Interpret Hypokinetic Dyskinetic 3-5moderate 5 - 6-14large Aneurysmal 15-16diffuse Mario Hallman MD ECHO ORDERABLES * (ABNORMAL) Heparin (unfractionated) Level (06/08/2021 5:54 AM EDT) Heparin UFH Level 1.20(Crit ical) IU/mL [facility] Comment: Critical Result called by ?? TESSA CRITICAL Results read back by: ? Veronica Rossi at 2021-06-08 06:18:02 Heparin (anti-Xa) levels should be determined in [...] cardiac surgery): 0.1 ? 0.3 IU/mL Blood 06/08/2021 5:54 AM EDT 06/08/2021 6:05 AM EDT Narrative Resulting Agency Comment Spec In Lab Edie Costello MD HEMATOLOGY ORDERABLE S [facility] [place] [address] * (ABNORMAL) Differential, Automated (06/08/2021 4:41 AM EDT) Neutrophils % 71.8 % [facility] Neutr Abs (ANC) 8.09(H) 1.70 - 6.10 x10(3)/mc L [facility] Lymphocytes % 18.0 % [facility] Lymphocytes Abs 2.0 0.9 - 3.2 x10(3)/mc L [facility] Monocytes % 5.7 % [facility] Monocyte Abs 0.6 0.3 - 0.9 x10(3)/mc L [facility] Eosinophils % 3.5 % [facility] Eosinophils Abs 0.4 0.0 - 0.4 x10(3)/mc L [facility] Basophils % 0.6 % [facility] Basophils Abs 0.1 0.0 - 0.1 x10(3)/mc L [facility] Immature Gran % 0.40 % [facility] Comment: Immature granulocytes(IG's)percentage and absolute count will include metamyelocytes, myelocytes, and promyelocytes. Blood smears from CBCs yielding IG's will be scanned manually for concordance. If this scan disagrees with the automated IG or if promyelocytes are noted, a manual differential will be performed. Shonda Gran Abs 0.05(H) 0.00 - 0.04 x10(3)/mc L [facility] Blood 06/08/2021 4:41 AM EDT 06/08/2021 5:11 AM EDT Narrative Resulting Agency Comment Spec In Lab Deja SANDRA HEMATOLOGY ORDERABLE S Performing Organization Address City/State/[facility] Co de Phone Number [facility] [place] [address] * (ABNORMAL) Hemogram (06/08/2021 4:41 AM EDT) WBC 11.3(H) 4.0 - 9.5 x10(3)/[facility] RBC 4.64 4.00 - 5.21 x10(6)/[facility] Hemoglobin 13.9 11.7 - 15.5 g/dL [facility] Hematocrit 43.0 35.7 - 45.8 % [facility] MCV 92.7 82.6 - 94.4 fL [facility] MCH 30.0 27.1 - 32.0 pg [facility] MCHC 32.3 31.7 - 35.0 g/dL [facility] Platelets 312 145 - 357 x10(3)/[facility] RDWSD 47.4(H) 37.0 - 46.0 fL [facility] RDWCV 14.3(H) 11.5 - 14.1 % [facility] MPV 10.8 7.6 - 12.9 fL [facility] nRBC % Auto 0.0 % [facility] nRBC Abs Auto 0.000 0.000 - 0.000 x10(3)/mcL [facility] Blood 06/08/2021 4:41 AM EDT 06/08/2021 5:11 AM EDT Narrative Resulting Agency Comment Spec In Lab Deja SANDRA HEMATOLOGY ORDERABLE S [facility] [place] [address] * (ABNORMAL) Heparin (unfractionated) Level (06/08/2021 4:41 AM EDT) Heparin UFH Level 1.06(Crit ical) IU/mL [facility] Comment: Critical Result called by ?? [facility]ES[facility] CRITICAL Results read back by: ? Veronica Rossi at 2021-06-08 05:30:32 Heparin (anti-Xa) levels should be determined in [...] cardiac surgery): 0.1 ? 0.3 IU/mL Blood 06/08/2021 4:41 AM EDT 06/08/2021 5:12 AM EDT Narrative Resulting Agency Comment Spec In Lab Mario Hallman MD HEMATOLOGY ORDERABLE S [facility] [place] [address] * (ABNORMAL) BMP w/fasting Glucose (06/08/2021 4:41 AM EDT) Glucose Fasting 95 65 - 99 mg/dL [facility] Comment: ?Fasting* Glucose Interpretive Criteria [...] of Diabetes Mellitus, Position Statement from the [place] [employer]. ??Diabetes Care, Volume 33, Supplement 1, Mar 2009 BUN 21(H) 8 - 18 mg/dL [facility] Creatinine 0.87 0.70 - 1.20 mg/dL [facility] Sodium 138 135 - 145 mmol/L [facility] Potassium 4.1 3.5 - 5.0 mmol/L [facility] Comment: Please note: ??Patients with WBC >100,000 may have falsely elevated Potassium levels. ??For accurate Potassium quantification in these patients send serum separator tube (gold top) for subsequent determinations. ??Contact the Clinical Chemistry Laboratory if there are any questions. Chloride 103 98 - 107 mmol/L [facility] CO2 22 22 - 31 mmol/L [facility] Anion Gap 13 5 - 15 mmol/L [facility] Calcium 8.7 8.5 - 10.5 mg/dL [facility] Estimated GFR 77 >=60 mL/min/1. 73 m?? [facility] Comment: This patient? s estimated glomerular filtration rate (eGFR) is between 77 mL/min/1.73 m2 (patients with less muscle mass) and 89 mL/min/1.73 m2 (patients with more muscle mass) [...] and symptoms in addition to eGFR. Blood 06/08/2021 4:41 AM EDT 06/08/2021 5:12 AM EDT Narrative Resulting Agency Comment Spec In Lab Mario Hallman MD CHEMISTRY ORDERABLES [facility] [place] [address] * Troponin (06/08/2021 4:41 AM EDT) Troponin-T <0.01 0.00 - 0.00 ng/mL [facility] Comment: The 99th percentile for Troponin T is less than 0.01 ng/mL, any detectable cTnT concentration using this assay should be considered elevated. According to the third universal definition of myocardial infarction the following criteria with a clinical presentation consistent with acute myocardial ischemia meets the diagnosis for a myocardial infarction (MA). Detection of a rise and/or fall of cTnT, with at least one value greater than the 99th percentile (> or = 0.01) and with at least one of the following ?? Symptoms of ischemia ?? New or presumed new significant HK-anqwmbg-P wave (ST-T) changes or new left bundle [...] additional sample may be indicated. Reference: Third Charlotte Definition of Myocardial Infarction. Journal of the [place] [employer] 2012;60:1581-98 Blood 06/08/2021 4:41 AM EDT 06/08/2021 5:12 AM EDT Narrative Resulting Agency Comment Spec In Lab Mario Hallman MD CHEMISTRY ORDERABLES [facility] [place] [address] * Heparin (unfractionated) Level (06/07/2021 9:55 PM EDT) [facility] Heparin UFH Level 0.08 IU/mL [facility] Comment: Heparin (anti-Xa) levels should [...] cardiac surgery): 0.1 ? 0.3 IU/mL Blood 06/07/2021 9:55 PM EDT 06/07/2021 10:05 PM EDT Narrative Resulting Agency Comment Spec In Lab Mario Hallman MD HEMATOLOGY ORDERABLE S [facility] [place] [address] * (ABNORMAL) pro-Brain Natriuretic Peptide (06/07/2021 5:26 PM EDT) [facility] ProBNP 2,701(H) <=124 pg/mL [facility] Blood Venous Draw / Unknown 06/07/2021 5:26 PM EDT 06/07/2021 5:44 PM EDT Narrative Resulting Agency Comment Spec In Lab Deja SANDRA CHEMISTRY ORDERABLES [facility] [place] [address] * (ABNORMAL) Differential, Automated (06/07/2021 5:26 PM EDT) [facility] Neutrophils % 74.6 % [facility] Neutr Abs (ANC) 8.97(H) 1.70 - 6.10 x10(3)/[facility] Lymphocytes % 15.9 % [facility] Lymphocytes Abs 1.9 0.9 - 3.2 x10(3)/[facility] Monocytes % 6.0 % [facility] Monocyte Abs 0.7 0.3 - 0.9 x10(3)/[facility] Eosinophils % 2.6 % [facility] Eosinophils Abs 0.3 0.0 - 0.4 x10(3)/[facility] Basophils % 0.5 % [facility] Basophils Abs 0.1 0.0 - 0.1 x10(3)/[facility] Immature Gran % 0.40 % [facility] Comment: Immature granulocytes(IG's)percentage and absolute count will include metamyelocytes, myelocytes, and promyelocytes. Blood smears from CBCs yielding IG's will be scanned manually for concordance. If this scan disagrees with the automated IG or if promyelocytes are noted, a manual differential will be performed. Shonda Gran Abs 0.05(H) 0.00 - 0.04 x10(3)/[facility] Blood 06/07/2021 5:26 PM EDT 06/07/2021 5:36 PM EDT Narrative Resulting Agency Comment Spec In Lab Deja SANDRA HEMATOLOGY ORDERABLE S [facility] [place] [address] * (ABNORMAL) Hemogram (06/07/2021 5:26 PM EDT) WBC 12.0(H) 4.0 - 9.5 x10(3)/[facility] RBC 4.72 4.00 - 5.21 x10(6)/[facility] Hemoglobin 14.5 11.7 - 15.5 g/dL [facility] Hematocrit 44.0 35.7 - 45.8 % [facility] MCV 93.2 82.6 - 94.4 fL [facility] MCH 30.7 27.1 - 32.0 pg [facility] MCHC 33.0 31.7 - 35.0 g/dL [facility] Platelets 346 145 - 357 x10(3)/[facility] LABORATORY RDWSD 47.2(H) 37.0 - 46.0 [facility] LAB[facility]ATORY RDWCV 14.4(H) 11.5 - 14.1 % [facility] MPV 10.6 7.6 - 12.9 [facility] nRBC % Auto 0.0 % [facility] nRBC Abs Auto 0.000 0.000 - 0.000 x10(3)/[facility] Blood 06/07/2021 5:26 PM EDT 06/07/2021 5:36 PM EDT Narrative Resulting Agency Comment Spec In Lab Deja SANDRA HEMATOLOGY ORDERABLE S [facility] [place] [address] * BMP w/fasting Glucose (06/07/2021 5:26 PM EDT) Glucose Fasting 90 65 - 99 mg/dL [facility] Comment: ?Fasting* Glucose Interpretive Criteria [...] of Diabetes Mellitus, Position Statement from the [place] [employer]. ??Diabetes Care, Volume 33, Supplement 1, Mar 2009 BUN 18 8 - 18 mg/dL [facility] Creatinine 1.07 0.70 - 1.20 mg/dL [facility] Sodium 137 135 - 145 mmol/L [facility] Potassium 4.3 3.5 - 5.0 mmol/L [facility] Comment: Please note: ??Patients with WBC >100,000 may have falsely elevated Potassium levels. ??For accurate Potassium quantification in these patients send serum separator tube (gold top) for subsequent determinations. ??Contact the Clinical Chemistry Laboratory if there are any questions. Chloride 101 98 - 107 mmol/L [facility] CO2 24 22 - 31 mmol/L [facility] Anion Gap 12 5 - 15 mmol/L [facility] Calcium 9.1 8.5 - 10.5 mg/dL [facility] Estimated GFR 60 >=60 mL/min/1. 73 m?? [facility] Comment: This patient? s estimated glomerular filtration rate (eGFR) is between 60 mL/min/1.73 m2 (patients with less muscle mass) and 69 mL/min/1.73 m2 (patients with more muscle mass) [...] and symptoms in addition to eGFR. Blood 06/07/2021 5:26 PM EDT 06/07/2021 5:36 PM EDT Narrative Resulting Agency Comment Spec In Lab Mario Hallman MD CHEMISTRY ORDERABLES [facility] [place] [address] * T3 Total (06/07/2021 5:26 PM EDT) T3, Total 134 80 - 200 ng/dL [facility] Blood 06/07/2021 5:26 PM EDT 06/07/2021 5:36 PM EDT Narrative Resulting Agency Comment Spec In Lab Mario Hallman MD CHEMISTRY ORDERABLES Performing Organization Address [facility] de Phone Number [facility] [place] [address] * T4 Total (06/07/2021 5:26 PM EDT) T4, total 6.8 5.3 - 11.6 mcg/dL [facility] Comment: Reference Interval (mcg/dL): Females: ??First Trimester: 6.3-13.5 ??Second Trimester: 7.1-14.3 ??Third Trimester: 6.9-14.1 Blood 06/07/2021 5:26 PM EDT 06/07/2021 5:36 PM EDT Narrative Resulting Agency Comment Spec In Lab Mario Hallman MD CHEMISTRY ORDERABLES Performing Organization Address [facility] de Phone Number [facility] [place] [address] * (ABNORMAL) TSH (06/07/2021 5:26 PM EDT) Pathologist [facility] TSH 5.83(H) 0.27 - 4.20 mcIU/mL [facility] Comment: Reference Interval (mcIU/mL): Females: ??First Trimester: 0.23-3.88 ??Second Trimester: 0.22-3.90 ??Third Trimester: 0.44-4.66 Blood 06/07/2021 5:26 PM EDT 06/07/2021 5:36 PM EDT Narrative Resulting Agency Comment Spec In Lab Mario Hallman MD CHEMISTRY ORDERABLES Performing Organization Address City/[facility] Co de Phone Number [facility] [place] [address] * Lipase (06/07/2021 5:26 PM EDT) Lipase 18 0 - 60 unit/L [facility] Blood 06/07/2021 5:26 PM EDT 06/07/2021 5:36 PM EDT Narrative Resulting Agency Comment Spec In Lab Mario Hallman MD CHEMISTRY ORDERABLES Performing Organization Address City/[facility]/ZIP Co de Phone Number [facility] [place] [address] * Amylase (06/07/2021 5:26 PM EDT) Amylase 39 28 - 100 unit/L [facility] Blood 06/07/2021 5:26 PM EDT 06/07/2021 5:36 PM EDT Narrative Resulting Agency Comment Spec In Lab Mario Hallman MD CHEMISTRY ORDERABLES Performing Organization Address City/[facility]/ZIP Co de Phone Number [facility] [place] [address] * Lipid Panel (Reflex Direct LDL) (06/07/2021 5:26 PM EDT) Chol, Total 164 mg/dL [facility] Comment: Lower Risk: <200 mg/dL Average Risk: 200-239 mg/dL Higher Risk: >qr=134 mg/dL Triglycerides 144 mg/dL [facility] Comment: Average Risk/Lower Risk: <150 mg/dL Borderline High Risk: 150-199 mg/dL High Risk: 200-499 mg/dL Very High Risk: >ol=125 mg/dL HDL 44 mg/dL [facility] Comment: Males: ?? Higher Risk: <40 mg/dL Females: ?? Higher Risk: <50 mg/dL LDL Cholesterol 91 mg/dL [facility] Comment: Lowest Risk: <100 mg/dL Lower Risk: 100-129 mg/dL Borderline High Risk: 130-159 mg/dL High Risk: 160-189 mg/dL Very High Risk: >xn=970 mg/dL Chol/HDL Ratio 3.7 ratio [facility] Lipid Interpretation See Note [facility] Comment: Lipid management should be guided by a patient? s ASCVD risk, goals and preferences. ACC/AHA Guidelines recommend high intensity statin if clinical ASCVD or LDL greater than or equal to 190 mg/dL. http://Jugo.com/ZUY-PAO-Zswmalmqg Adults aged 40-75 with LDL 70-189 mg/dL should have their 10 year ASCVD risk estimated with the ACC/AHA ASCVD risk gold plater http://tools.acc.org/IKRXQ-Lsuz-Zkoxhfrvg/ Statin should be discussed if risk greater [...] critical component of ASCVD risk reduction. Blood 06/07/2021 5:26 PM EDT 06/07/2021 5:36 PM EDT Narrative Resulting Agency Comment Spec In Lab Mario Hallman MD CHEMISTRY ORDERABLES Performing Organization Address City/[facility]/ZIP Co de Phone Number [facility] [place] [address] * CK (06/07/2021 5:26 PM EDT) CK, Total 33 0 - 160 unit/L [facility] Blood 06/07/2021 5:26 PM EDT 06/07/2021 5:36 PM EDT Narrative Resulting Agency Comment Spec In Lab Mario Hallman MD CHEMISTRY ORDERABLES Performing Organization Address City/[facility]/ZIP Co de Phone Number [facility] [place] [address] * Hemoglobin A1c (06/07/2021 5:04 PM EDT) Hemoglobin A1C 5.6 4.3 - 5.6 % [facility] Comment: Reference Range: 4.3 - [...] 1, S67-74 Est Avg Gluc 114 mg/dL [facility] Comment: eAG equivalents for HbA1c [...] into estimated average glucose values. ??Diabetes Care 2008:31(8):9380-2451. Blood 06/07/2021 5:04 PM EDT 06/07/2021 5:36 PM EDT Narrative Resulting Agency Comment Spec In Lab Mario Hallman MD CHEMISTRY ORDERABLES Performing Organization Address City/[facility]/ZIP Co de Phone Number [facility] [place] [address] * Troponin (06/07/2021 5:04 PM EDT) [facility] Troponin-T <0.01 0.00 - 0.00 ng/mL [facility] Comment: The 99th percentile for Troponin T is less than 0.01 ng/mL, any detectable cTnT concentration using this assay should be considered elevated. According to the third universal definition of myocardial infarction the following criteria with a clinical presentation consistent with acute myocardial ischemia meets the diagnosis for a myocardial infarction (MA). Detection of a rise and/or fall of cTnT, with at least one value greater than the 99th percentile (> or = 0.01) and with at least one of the following ?? Symptoms of ischemia ?? New or presumed new significant AY-ieysfst-Z wave (ST-T) changes or new left bundle [...] additional sample may be indicated. Reference: Third [place] Definition of Myocardial Infarction. Journal of the [place] [employer] 2012;60:1581-98 Blood 06/07/2021 5:04 PM EDT 06/07/2021 5:36 PM EDT Narrative Resulting Agency Comment Spec In Lab Mario Hallman MD CHEMISTRY ORDERABLES Performing Organization Address [facility]/ZIP Co de Phone Number [facility] [place] [address] * EKG 12 Lead (06/07/2021 4:33 PM EDT) [facility] Ventricular rate 54 BPM MUSE SYSTEM Atrial Rate 54 BPM MUSE SYSTEM P-R Interval 166 ms MUSE SYSTEM QRS Duration 86 ms MUSE SYSTEM Q-T Interval 514 ms MUSE SYSTEM QTC Calculated (Bezet) 487 ms MUSE SYSTEM Calculated P [place] 30 degrees MUSE SYSTEM Calculated R [place] 22 degrees MUSE SYSTEM Calculated T [place] 18 degrees MUSE SYSTEM INTERPRETATION Sinus bradycardia Left atrial enlargement Cannot rule out Lateral infarct , age undetermined Abnormal ECG When compared with ECG of 31-AUG-2019 07:05, No significant change was found Confirmed by MD Dalia, Willy Huerta ([id number]) on 06/09/2021 4:36:27 PM MUSE SYSTEM 06/07/2021 4:33 PM EDT 06/09/2021 4:36 PM EDT Mario Hallman MD ECG ORDERABLES MUSE SYSTEM * COVID-19 PCR (06/07/2021 4:30 PM EDT) SARS-CoV-2 RNA PCR Not Detected Not Detected [facility] Comment: This result should be interpreted [...] using the Simplexa COVID-19 Direct Assay by [employer] as authorized by the FDA issued Emergency [...] Department of Pathology and Laboratory Medicine at [facility], certified under the Clinical Laboratory Improvement Amendments [...] fact sheets at the following FDA website: https://www.fda.gov/medical-devices/xxhfkgiequt-gjbtsuz-5461-bxedk-97-vqvuhlvgk- use-a zwhkxyhnjpwks-pkmgtmz-qwblwkr/flbvs-rascnvzluyk-qdhs SARS-CoV-2 Source [employer] Swab [facility] Nasopharyngeal Swab 06/08/19 4:30 PM EDT 06/07/2021 4:45 PM EDT Comment:Symptoms->Surveillan ce Narrative Resulting Agency Comment Spec In Lab Mario Hallman MD MICROBIOLOGY - [facility] ORDERABLES [facility] [place] [address] documented in this encounter Visit Diagnoses Diagnosis NSTEMI (non-ST elevated myocardial infarction) Acute myocardial infarction, subendocardial infarction, episode of care unspecified Elevated blood pressure reading without diagnosis of hypertension Dyslipidemia Other and unspecified hyperlipidemia NSTEMI (non-ST elevated myocardial infarction) Acute myocardial infarction, subendocardial infarction, episode of care unspecified Obesity Obesity, unspecified Asthma Unspecified asthma MARYLOU on CPAP Obstructive sleep apnea (adult) (pediatric) Insomnia Insomnia, unspecified Chronic heart failure with preserved ejection fraction Dyslipidemia Other and unspecified hyperlipidemia Elevated blood pressure reading without diagnosis of hypertension Pulmonary hypertension, mild Other chronic pulmonary heart diseases Elevated blood pressure reading without diagnosis of hypertension documented in this encounter Admitting Diagnoses Diagnosis NSTEMI (non-ST elevated myocardial infarction) Acute myocardial infarction, subendocardial infarction, episode of care unspecified documented in this encounter Administered Medications Inactive Administered Medications - up to 3 most recent administrations Medication Order MAR Action Action Date Dose Rate Site acetaminophen (Tylenol) tablet 650 mg 650 mg, Oral, EVERY 6 HOURS PRN, Starting on 06/08/21 at 2053, Until Wed06/09/21 at 1531, Headaches albuteroL (Proventil) nebulizer solution 2.5 mg 2.5 mg, Nebulization, EVERY 4 HOURS PRN, Starting on 06/07/21 at 1808, Until Wed06/09/21 at 1531, Shortness of Breath, Routine aspirin chewable tablet 81 mg 81 mg, Oral, DAILY, First dose on 06/07/21 at 1845, Until Discontinued, Routine Given 06/09/2021 9:39 AM EDT 81 mg Given 06/08/2021 9:08 AM EDT 81 mg atorvastatin (Lipitor) tablet 80 mg 80 mg, Oral, EVERY EVENING, First dose on 06/07/21 at 1845, Until Discontinued, Routine Given 06/08/2021 5:01 PM EDT 80 mg atropine (0.1 mg/mL) injection 1 mg 1 mg, Intravenous, Administer over 4 Hours, EVERY 5 MIN PRN, 2 doses, Starting on Wed06/09/21 at 0859, Until Wed06/09/21 at 1531, Other, vasovagal episode, Call interventional MD. , Cath (Recovery-Hospital Unit), Routine budesonide-formoteroL (Symbicort) 160-4.5 mcg/actuation inhaler 2 Inhalation 2 Inhalation , Inhalation, 2 TIMES DAILY, First dose on 06/07/21 at 2100, Until Discontinued, Routine Given 06/07/2021 8:25 PM EDT 2 Inhalati on clopidogreL (Plavix) tablet 75 mg 75 mg, Oral, DAILY, First dose on Wed06/08/21 at 0900, Until Discontinued, Routine Given 06/08/2021 9:08 AM EDT [address] (Cymbalta) capsule 60 mg 60 mg, Oral, DAILY, First dose on 06/07/21 at 1845, Until Discontinued, Routine Given 06/08/2021 9:02 PM EDT 60 mg Given 06/07/2021 9:00 PM EDT 60 mg empagliflozin (Jardiance) Tab 10 mg 10 mg, Oral, DAILY, First dose on 06/08/21 at 1545, Until Discontinued, Routine Given 06/09/2021 9:40 AM EDT 10 mg Given 06/08/2021 5:17 PM EDT 10 mg fentaNYL (PF) (50 mcg/mL) injection 25 mcg 25 mcg, Intravenous, Administer over 4 Hours, EVERY 30 MIN PRN, 4 doses, Starting on 06/09/21 at 0859, Until 06/09/21 at 1531, Pain, sheath removal, May repeat once while in Cath Recovery Unit , Cath (Recovery-Hospital Unit), Routine furosemide (Lasix) (10 mg/mL) injection 40 mg 40 mg, Intravenous, ONCE, 1 dose, On 06/08/21 at 1545 Given 06/08/2021 5:01 PM EDT 40 mg furosemide (Lasix) tablet 20 mg 20 mg, Oral, DAILY, First dose on 06/07/21 at 1845, Until Discontinued, Routine Given 06/09/2021 9:39 AM EDT 20 mg Given 06/08/2021 9:08 AM EDT 20 mg gabapentin (Neurontin) capsule 300 mg 300 mg, Oral, 2 TIMES DAILY, First dose on 06/07/21 at 2100, Until Discontinued, Routine Given 06/09/2021 9:40 AM EDT 300 mg Given 06/08/2021 9:01 PM EDT 300 mg Given 06/08/2021 9:08 AM EDT 300 mg heparin (porcine) (1,000 units/mL) injection 0-4,000 Units 0-4,000 Units, Intravenous, BOLUS PER HEPARIN PROTOCOL, Starting on 06/07/21 at 1744, Until [place] 06/08/21 at 1300, Per Protocol, START ADJUSTMENT SCHEDULE 6 HOURS [...] than 0.2 international unit/mL: No Bolus, Routine Given 06/07/2021 10:29 PM EDT 4,000 Units heparin (porcine) 25,000 unit/500 mL infusion 1 dose, Starting on 06/07/21 at 1610, Until 06/07/21 at 1614, Luiza Armstrong: cabinet override heparin (porcine) 50 units/mL in sodium chloride 0.45% 500 mL infusion 0-5,000 Units/hr (0-100 mL/hr), Intravenous, CONTINUOUS, Starting on 06/07/21 at 1845, Until 06/08/21 at 1300, Begin infusion at 1,000 units per hr [...] UFH Level - Per Protocol, Routine Rate/Dose Change 06/08/2021 7:19 AM EDT 1,100 Units/hr 22 mL/hr Rate/Dose Change 06/07/2021 10:29 PM EDT 1,400 Units/hr 28 mL/hr New Bag 06/07/2021 4:14 PM EDT 1,000 Units 20 mL/hr lisinopriL (Zestril) tablet 2.5 mg 2.5 mg, Oral, DAILY, First dose on 06/07/21 at 1845, Until Discontinued, Routine Given 06/09/2021 9:39 AM EDT 2.5 mg Given 06/08/2021 9:08 AM EDT 2.5 mg metoprolol tartrate (Lopressor) tablet 12.5 mg 12.5 mg, Oral, EVERY 12 HOURS SCHEDULED (2 times per day), First dose on 06/07/21 at 2100, Until Discontinued, Routine Given 06/08/2021 9:10 AM EDT 12.5 mg midazolam (pf) (Versed) (1 mg/mL) injection 1 mg 1 mg, Intravenous, Administer over 4 Hours, EVERY 1 HOUR PRN, 2 doses, Starting on 06/09/21 at 0859, Until Wed06/09/21 at 1531, For sheath removal, May repeat once while in Cath Recovery Unit. , Cath (Recovery-Hospital Unit), Routine montelukast (Singulair) tablet 10 mg 10 mg, Oral, NIGHTLY, First dose on 06/07/21 at 2100, Until Discontinued Given 06/08/2021 8:59 PM EDT 10 mg Given 06/07/2021 8:26 PM EDT 10 mg perflutren lipid microspheres (Definity) injection 1.2 mL 1.2 mL, Intravenous, ONCE PRN, 1 dose, Starting on 06/08/21 at 1109, Until 06/08/21 at 1109, Other, Routine Given 06/08/2021 11:09 AM EDT 1.2 mLs rOPINIRole (Requip) tablet 1 mg 1 mg, Oral, NIGHTLY, First dose on 06/07/21 at 2100, Until Discontinued, Routine Given 06/08/2021 8:59 PM EDT 1 mg Given 06/07/2021 8:26 PM EDT 1 mg topiramate (Topamax) tablet 50 mg 50 mg, Oral, 2 TIMES DAILY, First dose on 06/07/21 at 2100, Until Discontinued, Routine Given 06/09/2021 12:54 PM EDT 50 mg Given 06/08/2021 9:11 PM EDT 50 mg Given 06/08/2021 10:09 AM EDT 50 mg traMADoL (Ultram) tablet 25 mg 25 mg, Oral, EVERY 6 HOURS PRN, Starting on 06/08/21 at 2107, Until 06/09/21 at 1531, Pain, Routine Given 06/08/2021 9:16 PM EDT 25 mg traZODone (Desyrel) tablet 100 mg 100 mg, Oral, NIGHTLY, First dose (after last reorder) on 06/07/21 at 2115, Until Discontinued, Routine Given 06/08/2021 9:00 PM EDT 100 mg Given 06/07/2021 9:00 PM EDT 100 mg documented in this encounter Active and Recently Administered Medications Times are shown in EDT. Scheduled Medication Order 06/07/2021 06/08/2021 06/09/2021 aspirin chewable tablet 81 mg 81 mg, Oral, DAILY, First dose on 06/07/21 at 1845, Until Discontinued, Routine 1845 (Not Given - Provider: Luiza Armstrong RN - Reason: See comment - Comment: pt took at [facility]) 0908 (Given - Provider: Jo Ann Maldonado RN) 0853 (MAY Hold - Provider: Admin Adt - Reason: Transfer to a Procedural area)0900 (Automatically Held - Provider: Admin Adt)0929 (MAR Unhold - Provider: Admin Adt)0939 (Given - Provider: Jo Ann Maldonado RN) atorvastatin (Lipitor) tablet 80 mg 80 mg, Oral, EVERY EVENING, First dose on 06/07/21 at 1845, Until Discontinued, Routine 1845 (Not Given - Provider: Luiza Armstrong RN - Reason: See comment - Comment: per pt, took at [facility]SH) 1701 (Given - Provider: Jo Ann Maldonado RN) 0853 (MAR Hold - Provider: Admin Adt - Reason: Transfer to a Procedural area)0929 (MAR Unhold - Provider: Admin Adt) budesonide-formoteroL (Symbicort) 160-4.5 mcg/actuation inhaler 2 Inhalation 2 Inhalation , Inhalation, 2 TIMES DAILY, First dose on 06/07/21 at 2100, Until Discontinued, Routine 2024 (Given - Provider: Olive Anne RN) 0900 (Not Given - Provider: Jo Ann Maldonado RN - Reason: Patient/family refused)2100 (Not Given - Provider: Colette Medina RN - Reason: Patient/family refused) 0853 (MAR Hold - Provider: Admin Adt - Reason: Transfer to a Procedural area)0900 (Automatically Held - Provider: Admin Adt)0929 (MAR Unhold - Provider: Admin Adt) clopidogreL (Plavix) tablet 75 mg (CANCELED) 75 mg, Oral, DAILY, First dose on 06/08/21 at 0900, Until Discontinued, Routine 09 (Given - Provider: Jo Ann Maldonado RN) DULoxetine DR (Cymbalta) capsule 60 mg 60 mg, Oral, DAILY, First dose on 06/07/21 at 1845, Until Discontinued, Routine 2100 (Given - Provider: Olive Anne RN) 2101 (Given - Provider: Colette Medina RN) 0853 (MAR Hold - Provider: Admin Adt - Reason: Transfer to a Procedural area)0929 (MAR Unhold - Provider: Admin Adt) empagliflozin (Jardiance) Tab 10 mg 10 mg, Oral, DAILY, First dose on 06/08/21 at 1545, Until Discontinued, Routine 171 (Given - Provider: Jo Ann Maldonado RN - Comment: awaiting medication from pharmacy) 0853 (MAR Hold - Provider: Admin Adt - Reason: Transfer to a Procedural area)0900 (Automatically Held - Provider: Admin Adt)0929 (MAR Unhold - Provider: Admin Adt)0940 (Given - Provider: Jo Ann Maldonado, ERWIN) fluticasone propionate (Flonase) 50 mcg/actuation nasal spray 1 spray 1 spray, Each Nare, DAILY, First dose on 06/07/21 at 1845, Until Discontinued, Routine 184 (Not Given - Provider: Luiza Armstrong RN - Reason: Patient/family refused - Comment: patient takes this medication as needed) 0900 (Not Given - Provider: Jo Ann Maldonado RN - Reason: Patient/family refused - Comment: Patient states she only takes this as needed.) 0853 (MAY Hold - Provider: Admin Adt - Reason: Transfer to a Procedural area)0900 (Automatically Held - Provider: Admin Adt)0929 ([facility] Unhold - Provider: Admin Adt) furosemide (Lasix) (10 mg/mL) injection 40 mg (COMPLETED) 40 mg, Intravenous, ONCE, 1 dose, On 06/08/21 at 1545 1701 (Given - Provider: Jo Ann Maldonado, ERWIN) furosemide (Lasix) tablet 20 mg 20 mg, Oral, DAILY, First dose on 06/07/21 at 1845, Until Discontinued, Routine 1844 (Not Given - Provider: Luiza Armstrong RN - Reason: See comment - Comment: patient took this medication at the [facility] this morning) 0908 (Given - Provider: Jo Ann Maldonado RN) 0853 ([facility] Hold - Provider: Admin Adt - Reason: Transfer to a Procedural area)0900 (Automatically Held - Provider: Admin Adt)0929 ([facility] Unhold - Provider: Admin Adt)0939 (Given - Provider: Jo Ann Maldonado RN) gabapentin (Neurontin) capsule 300 mg 300 mg, Oral, 2 TIMES DAILY, First dose on 06/07/21 at 2100, Until Discontinued, Routine 2026 (Given - Provider: Olive Anne RN) 0908 (Given - Provider: Jo Ann Maldonado RN)210 (Given - Provider: Colette Medina RN) 0853 ([facility] Hold - Provider: Admin Adt - Reason: Transfer to a Procedural area)0900 (Automatically Held - Provider: Admin Adt)0929 ([facility] Unhold - Provider: Admin Adt)0940 (Given - Provider: Jo Ann Maldonado RN) lisinopriL (Zestril) tablet 2.5 mg 2.5 mg, Oral, DAILY, First dose on 06/07/21 at 1845, Until Discontinued, Routine 1844 (Not Given - Provider: Olive Anne RN - Reason: See comment - Comment: dose in AM) 0908 (Given - Provider: Jo Ann Maldonado RN) 0853 ([facility] Hold - Provider: Admin Adt - Reason: Transfer to a Procedural area)0900 (Automatically Held - Provider: Admin Adt)0929 ([facility] Unhold - Provider: Admin Adt)0939 (Given - Provider: Jo Ann Maldonado RN) loratadine (Claritin) tablet 5 mg 5 mg, Oral, DAILY, First dose on 06/07/21 at 1845, Until Discontinued, Routine 1844 (Not Given - Provider: Luiza Armstrong RN - Reason: Patient/family refused - Comment: patient takes this medication as needed. denies need at this time) 0900 (Not Given - Provider: Jo Ann Maldonado RN - Reason: Patient/family refused - Comment: Pateient states she takes this as needed for allergies.) 0853 ([facility] Hold - Provider: Admin Adt - Reason: Transfer to a Procedural area)0900 (Not Given - Provider: Jo Ann Maldonado RN - Reason: Patient/family refused - Comment: only takes as needed)0929 ([facility] Unhold - Provider: Admin Adt) metoprolol tartrate (Lopressor) tablet 12.5 mg 12.5 mg, Oral, EVERY 12 HOURS SCHEDULED (2 times per day), First dose on 06/07/21 at 2100, Until Discontinued, Routine 2025 (Not Given - Provider: Olive Anne RN - Reason: Order parameters not met - Comment: HR <60) 0910 (Given - Provider: Jo Ann Maldonado RN)2099 (Not Given - Provider: Colette Medina RN - Reason: Order parameters not met - Comment: HR 56) 0853 ([facility] Hold - Provider: Admin Adt - Reason: Transfer to a Procedural area)0900 (Not Given - Provider: Jo Ann Maldonado RN - Reason: Order parameters not met - Comment: HR 48)0929 ([facility] Unhold - Provider: Admin Adt) montelukast (Singulair) tablet 10 mg 10 mg, Oral, NIGHTLY, First dose on 06/07/21 at 2100, Until Discontinued 2025 (Given - Provider: Olive Anne RN) 2058 (Given - Provider: Colette Medina RN) 0853 ([facility] Hold - Provider: Admin Adt - Reason: Transfer to a Procedural area)0929 ([facility] Unhold - Provider: Admin Adt) rOPINIRole (Requip) tablet 1 mg 1 mg, Oral, NIGHTLY, First dose on 06/07/21 at 2100, Until Discontinued, Routine 2025 (Given - Provider: Olive Anne RN) 2058 (Given - Provider: Colette Medina, ERWIN) 0853 (MAY Hold - Provider: Admin Adt - Reason: Transfer to a Procedural area)0929 (MAY Unhold - Provider: Admin Adt) topiramate (Topamax) tablet 50 mg 50 mg, Oral, 2 TIMES DAILY, First dose on 06/07/21 at 2100, Until Discontinued, Routine 2024 (Given - Provider: Olive Anne RN) 1009 (Given - Provider: Jo Ann Maldonado, ERWIN - Comment: awaiting medication from pharmacy)2110 (Given - Provider: Colette Medina RN) 0853 (MAY Hold - Provider: Admin Adt - Reason: Transfer to a Procedural area)0929 (MAY Unhold - Provider: Admin Adt)1254 (Given - Provider: Jo Ann Maldonado RN - Comment: awaiting medication from pharmacy) traZODone (Desyrel) tablet 100 mg 100 mg, Oral, NIGHTLY, First dose (after last reorder) on 06/07/21 at 2115, Until Discontinued, Routine 2099 (Given - Provider: Olive Anne RN) 2100 (Given - Provider: Colette Medina, ERWIN) 0853 (MAY Hold - Provider: Admin Adt - Reason: Transfer to a Procedural area)0929 (MAY Unhold - Provider: Admin Adt) Continuous Medication Order 06/07/2021 06/08/2021 06/09/2021 heparin (porcine) 50 units/mL in sodium chloride 0.45% 500 mL infusion (CANCELED)(Linked Group 1) 0-5,000 Units/hr (0-100 mL/hr), Intravenous, CONTINUOUS, Starting on 06/07/21 at 1845, Until 06/08/21 at 1300, Begin infusion at 1,000 units per hr [...] Heparin UFH Level - Per Protocol, Routine 1614 (New Bag - Provider: Luiza Armstrong RN - Comment: restarting at 1000 units/hr (was running at [facility]))2229 (Rate/Dose Change - Provider: Olive Anne RN - Comment: UFH 0.08) 0619 (Paused - Provider: Olive Anne RN)0719 (Rate/Dose Change - Provider: Olive Anne RN)1300 (Stopped - Provider: Jo Ann Maldonado RN) PRN Medication Order 06/07/2021 06/08/2021 06/09/2021 acetaminophen (Tylenol) tablet 650 mg 650 mg, Oral, EVERY 6 HOURS PRN, Starting on 06/08/21 at 2053, Until 06/09/21 at 1531, Headaches 0853 (MAY Hold - Provider: Admin Adt - Reason: Transfer to a Procedural area)0929 (MAY Unhold - Provider: Admin Adt) albuteroL (Proventil) nebulizer solution 2.5 mg 2.5 mg, Nebulization, EVERY 4 HOURS PRN, Starting on 06/07/21 at 1808, Until Mon 4/22 at 1531, Shortness of Breath, Routine 0853 (MAY Hold - Provider: Admin Adt - Reason: Transfer to a Procedural area)928 (MAY Unhold - Provider: Admin Adt) atropine (0.1 mg/mL) injection 1 mg 1 mg, Intravenous, Administer over 4 Hours, EVERY 5 MIN PRN, 2 doses, Starting on 06/09/21 at 0859, Until Wed06/09/21 at 1531, Other, vasovagal episode, Call interventional MD. , Cath (Recovery-Hospital Unit), Routine fentaNYL (PF) (50 mcg/mL) injection 25 mcg 25 mcg, Intravenous, Administer over 4 Hours, EVERY 30 MIN PRN, 4 doses, Starting on Wed06/09/21 at 0859, Until Wed06/09/21 at 1531, Pain, sheath removal, May repeat once while in Cath Recovery Unit , Cath (Recovery-Hospital Unit), Routine heparin (porcine) (1,000 units/mL) injection 0-4,000 Units (CANCELED)(Linked Group 1) 0-4,000 Units, Intravenous, BOLUS PER HEPARIN PROTOCOL, Starting on 06/07/21 at 1744, Until 06/08/21 at 1300, Per Protocol, START ADJUSTMENT SCHEDULE 6 HOURS [...] than 0.2 international unit/mL: No Bolus, Routine 2229 (Given - Provider: Olive Anne RN) hydrOXYzine (Atarax) tablet 25 mg 25 mg, Oral, EVERY 6 HOURS PRN, Starting on 06/07/21 at 1744, Until 06/09/21 at 1531, Headache, Routine 0853 (MAY Hold - Provider: Admin Adt - Reason: Transfer to a Procedural area)09 (MAY Unhold - Provider: Admin Adt) midazolam (pf) (Versed) (1 mg/mL) injection 1 mg 1 mg, Intravenous, Administer over 4 Hours, EVERY 1 HOUR PRN, 2 doses, Starting on 06/09/21 at 0859, Until 06/09/21 at 1531, For sheath removal, May repeat once while in Cath Recovery Unit. , Cath (Recovery-Hospital Unit), Routine perflutren lipid microspheres (Definity) injection 1.2 mL (COMPLETED) 1.2 mL, Intravenous, ONCE PRN, 1 dose, Starting on 06/08/21 at 1109, Until 06/08/21 at 1109, Other, Routine 1109 (Given - Provider: Aaron Herr) traMADoL (Ultram) tablet 25 mg 25 mg, Oral, EVERY 6 HOURS PRN, Starting on 06/08/21 at 2107, Until 06/09/21 at 1531, Pain, Routine 2116 (Given - Provider: Colette Medina RN) 0853 (MAY Hold - Provider: Admin Adt - Reason: Transfer to a Procedural area)0929 (MAY Unhold - Provider: Admin Adt) Linked Groups Order Group 1: heparin (porcine) 50 units/mL in sodium chloride 0.45% 500 mL infusion (CANCELED)Jump to med 0-5,000 Units/hr (0-100 mL/hr), Intravenous, CONTINUOUS, Starting on 06/07/21 at 1845, Until 06/08/21 at 1300, Begin infusion at 1,000 units per hr [...] heparin (porcine) (1,000 units/mL) injection 0-4,000 Units (CANCELED)Jump to med 0-4,000 Units, Intravenous, BOLUS PER HEPARIN PROTOCOL, Starting on 06/07/21 at 1744, Until 06/08/21 at 1300, Per Protocol, START ADJUSTMENT SCHEDULE 6 HOURS [...] Routine documented in this encounter Care Teams Animal Surgeon Relationship Specialty Start Date End Date Polo Pearce PA [address] [place] [address] PCP - General Internal Medicine 06/09/21 documented as of this encounter
--- OUTSIDE RECORDS SUMMARY | 2023-09-20 14:39 | XMS_ITS | Encounter Summary ---
[place] [address] Care Team Providers Care Fraud Analyst Name Role Phone Polo Pearce Primary Care Provider [phone] Encounter Details Date Type Department Care Team (Late st Contact Info) Description 06/10/2021 Telephone Cardiology at [address] [phone] Lashonda Menjivar, RN Social History Tobacco Use Types Packs/Day [...] encounter Miscellaneous Notes * Telephone Encounter - Lashonda Menjivar RN - 06/10/2021 3:13 PM EDT RTC to Mrs Roque regarding her request for JOCY Jaeger to send her prescription for 90 days of Jardiance, to [facility]. Prescription pended. Lashonda Menjivar RN (Jodie), BSN Cardiology Amb[facility] documented in this encounter Plan of Treatment Upcoming Encounters Date Type Department Care Team (Late st Contact Info) Description 10/08/2023 8:30 AM EDT Tech Visit Vascular Lab at [place] [phone] Jose Cook 10/08/2023 9:30 AM EDT Office Visit Vascular Surgery at [address] MD [facility] [place] [address] 10/21/2023 10:30 AM EDT Appointment Nuclear Medicine at [place] [address] Mary Reyes [facility] [place] [address] 10/21/2023 11:30 AM EDT Appointment Nuclear Medicine at [place] [address] Mary Reyes [facility] [place] [address] 10/21/2023 12:30 PM EDT Appointment Nuclear Medicine at [place] [phone] Mary Reyes [facility] [place] [address] 10/21/2023 1:30 PM EDT Appointment [place] [address] Mary Reyes [facility] [place] [address] 10/21/2023 2:30 PM EDT Appointment [place] [address] Mary Reyes [facility] [place] [address] 10/26/2023 4:00 PM EDT Office Visit Cardiology at [address] [phone] Jaspreet Kinsey MD [facility] [place] [address] 10/28/2023 9:00 AM EDT Office [place] [address] 10/29/2023 10:00 AM EDT Clinical [place] [address] 10/29/2023 10:15 AM EDT Procedure [place] [address] 11/01/2023 5:00 PM EDT Office [place] [phone] Selene Browning, PhD [facility] [place] [address] 11/22/2023 4:40 PM EDT Office Visit Cardiology at [address] [phone] Porsha Mcdaniels MD [facility] [place] [address] 12/13/2023 10:00 AM EDT Clinical Support [place] [phone] Lucero Romero, RD [facility] [place] [address] documented as of this encounter Visit Diagnoses Not on filedocumented in this encounter Care Teams Fraud Analyst Relationship Specialty Start Date End Date Polo Pearce PA [address] [place] [address] PCP - General Internal Medicine 06/09/21 documented as of this encounter
--- OUTSIDE RECORDS SUMMARY | 2023-09-20 14:39 | XMS_ITS | Encounter Summary ---
[place] [address] Care Team Providers Care Applied Exercise Physiologist Name Role Phone Tim Rogers DNP Primary Care Provider [phone] Encounter Details Date Type Department Care Team (Late st Contact Info) Description 05/28/2021 Telephone [place] [phone] Beryl Grider Social History Tobacco Use Types Packs/Day Years [...] encounter Miscellaneous Notes * Telephone Encounter - Beryl Grider - 05/28/2021 3:28 PM EDT Pt called in response to message left by [place] with appt availability 05/[address] Miller. Slot no longer avail & appreciated the opportunity. Keeping TOV on 05/30 documented in this encounter Plan of Treatment Upcoming Encounters Date Type Department Care Team (Late st Contact Info) Description 10/08/2023 8:30 AM EDT Tech Visit Vascular Lab at [facility] [address] Jose Cook 10/08/2023 9:30 AM EDT Office Visit Vascular Surgery at [address] MD [facility] [place] [place] [address] 10/21/2023 10:30 AM EDT Appointment Nuclear Medicine at [address] Mary Reyes [facility] [place] [address] 10/21/2023 11:30 AM EDT Appointment Nuclear Medicine at [place] [phone] Mary Reyes [facility] [place] [address] 10/21/2023 12:30 PM EDT Appointment Nuclear Medicine at [place] [phone] Mary Reyes [facility] [place] [address] 10/21/2023 1:30 PM EDT Appointment Nuclear Medicine at [place] [phone] Mary Reyes [facility] [place] [address] 10/21/2023 2:30 PM EDT Appointment Nuclear Medicine at [place] [phone] Mary Reyes [facility] [place] [address] 10/26/2023 4:00 PM EDT Office Visit Cardiology at [address] [phone] Jaspreet Kinsey MD [facility] [place] [address] 10/28/2023 9:00 AM EDT Office Visit [place] [address] 10/29/2023 10:00 AM EDT Clinical Support [place] [address] 10/29/2023 10:15 AM EDT Procedure visit [place] [address] 11/01/2023 5:00 PM EDT Office [place] [phone] Selene Browning, PhD [facility] [place] [address] 11/22/2023 4:40 PM EDT Office Visit Cardiology at [address] [phone] Porsha Mcdaniels MD [facility] [place] [address] 12/13/2023 10:00 AM EDT Clinical Support [place] [phone] [facility] [place] [address] documented as of this encounter Visit Diagnoses Not on filedocumented in this encounter Care Teams Applied Exercise Physiologist Relationship Specialty Start Date End Date Tim Rogers DNP PCP - General Family Medicine 08/28/19 06/08/21 documented as of this encounter
--- OUTSIDE RECORDS SUMMARY | 2023-09-20 14:39 | XMS_ITS | Encounter Summary ---
[place] [address] Care Team Providers Care Traveling Sales Representative Name Role Phone Polo Pearce Primary Care Provider [phone] Encounter Details Date Type Department Care Team (Late st Contact Info) Description 06/12/2021 External [place] [phone] Social History Tobacco Use Types Packs/Day Years [...] AM EDT Tech [place] [phone] Jose Cook 10/08/2023 9:30 AM EDT Office [place] [phone] MD [facility] [place] [address] 10/21/2023 10:30 AM EDT Appointment [place] [phone] Mary Reyes [facility] [place] [address] 10/21/2023 11:30 AM EDT Appointment [place] [address] Mary Reyes, [facility] [place] [address] 10/21/2023 12:30 PM EDT Appointment Nuclear Medicine at [place] [phone] Mary Reyes [facility] [place] [address] 10/21/2023 1:30 PM EDT Appointment [place] [address] Mary Reyes [facility] [place] [address] 10/21/2023 2:30 PM EDT Appointment [place] [address] Mary Reyes [facility] [place] [address] 10/26/2023 4:00 PM EDT Office Visit Cardiology at [address] [phone] Jaspreet Kinsey MD [facility] [place] [address] 10/28/2023 9:00 AM EDT Office Visit [place] [address] 10/29/2023 10:00 AM EDT Clinical Support [place] [address] 10/29/2023 10:15 AM EDT Procedure visit [place] [address] 11/01/2023 5:00 PM EDT Office Visit Gastroenterology at [place] [phone] Selene Browning, PhD [facility] [place] [address] 11/22/2023 4:40 PM EDT Office Visit Cardiology at [place] [phone] Porsha Mcdaniels MD [facility] [place] [address] 12/13/2023 10:00 AM EDT Clinical [place] [phone] Lucero Romero, [facility] [place] [address] documented as of this encounter Procedures Procedure Name Priority Date/Time Associated Diagnosis Comments ECG SCAN Routine 06/12/2021 documented in this encounter Results * Scan Doc: ECG (06/12/2021) Historical Provider MD FLEMING MGR SCAN EX T ORDR/RSLT documented in this encounter Visit Diagnoses Not on filedocumented in this encounter Care Teams Traveling Sales Representative Relationship Specialty Start Date End Date Polo Pearce PA Sb MOTT [address] [place] [address] PCP - General Internal Medicine 06/09/21 documented as of this encounter
--- OUTSIDE RECORDS SUMMARY | 2023-09-20 14:39 | XMS_ITS | Encounter Summary ---
[place] [address] Care Team Providers Care Chief Informatics Officer Name Role Phone Polo Pearce Primary Care Provider [phone] Reason for Referral * Diagnostic Test (Routine) - Closed Specialty Diagnoses / Procedures Referred By Jayant harris Referred To Contact Cardiology Diagnoses Elevated blood pressure reading without diagnosis of hypertension Procedures Ziopatch 48 Hrs-15 Days Deja Zaidi PA [facility] [place] [address] [facility] [place] [address] Referral ID Status Reason Start Date Expiration Date V isits Requested Visits Authorized [id number] Closed Specialty Service Requested 06/09/2021 12/09/2021 1 1 Reason for Visit * Diagnostic Test (Routine) - Closed Specialty Diagnoses / Procedures Referred By Jayant harris Referred To Contact Cardiology Diagnoses Elevated blood pressure reading without diagnosis of hypertension Procedures Ziopatch 48 Hrs-15 Days Deja Zaidi PA [facility] [place] [address] [facility] [place] [address] Referral ID Status Reason Start Date Expiration Date V isits Requested Visits Authorized [id number] Closed Specialty Service Requested 06/09/2021 12/09/2021 1 1 Encounter Details Date Type Department Care Team (Latest Contact Info) Description 06/09/2021 3:00 PM EDT - 06/09/2021 11:59 PM EDT Hospital Encounter Non-[place] [phone] Elevated blood pressure reading without diagnosis of hypertension Discharge Disposition: Home Social History Tobacco Use [...] as needed. fluticasone propionate (FLONASE) 50 mcg/actuation [place], Suspension 1 spray by Each Nare route [...] mg 07/23/2021 documented as of this encounter Plan of Treatment Upcoming Encounters Date Type Department Care Team (Late st Contact Info) Description 10/08/2023 8:30 AM EDT Tech [place] [phone] Jose Cook 10/08/2023 9:30 AM EDT Office [place] [phone] MD [facility] [place] [address] 10/21/2023 10:30 AM EDT Appointment Nuclear Medicine at [address] [facility] [place] [address] 10/21/2023 11:30 AM EDT Appointment Nuclear Medicine at [address] [facility] [place] [address] 10/21/2023 12:30 PM EDT Appointment Nuclear Medicine at [place] [phone] Mary Reyes [facility] [place] [address] 10/21/2023 1:30 PM EDT Appointment Nuclear Medicine at [place] [phone] Mary [address]yes [facility] [place] [address] 10/21/2023 2:30 PM EDT Appointment [place] [phone] [address] [facility] [place] [address] 10/26/2023 4:00 PM EDT Office Visit Cardiology at [address] [phone] Jaspreet Kinsey MD [facility] [place] [address] 10/28/2023 9:00 AM EDT Office Visit [place] [address] 10/29/2023 10:00 AM EDT Clinical Support [place] [address] 10/29/2023 10:15 AM EDT Procedure visit [place] [address] 11/01/2023 5:00 PM EDT Office [place] [phone] Selene Browning, PhD [facility] [place] [address] 11/22/2023 4:40 PM EDT Office Visit Cardiology at [address] [phone] Porsha Mcdaniels MD [facility] [place] [address] 12/13/2023 10:00 AM EDT Clinical [place] [address] [facility] [place] [address] documented as of this encounter Procedures Procedure Name Priority Date/Time Associated Diagnosis Comments ZIOPATCH 48 HRS-15 DAYS Routine 06/09/2021 3:48 PM EDT Elevated blood pressure reading without diagnosis of hypertension documented in this encounter Results * Ziopatch 48 Hrs-15 Days (06/09/2021 3:48 PM EDT) Anatomical Region Laterality Modality Other Narrative 07/01/2021 9:29 AM EDT [facility] ? Zio Patch? Ambulatory Cardiac Event Monitor [...] atrial premature beat conducted with a prolonged ID interval, strongly suggestive of atrioventricular makayla reentrant [...] as described ?? Kurt Larose MD, PhD, [facility] Cardiac Electrophysiology Mario Hallman MD CARDIAC SERVICES ORD ERABLES documented in this encounter Visit Diagnoses Diagnosis Elevated blood pressure reading without diagnosis of hypertension documented in this encounter Care Teams Chief Informatics Officer Relationship Specialty Start Date End Date Polo Pearce PA [address] [place] [address] PCP - General Internal Medicine 06/09/21 documented as of this encounter
--- OUTSIDE RECORDS SUMMARY | 2023-09-20 14:39 | XMS_ITS | Encounter Summary ---
[place] [address] Care Team Providers Care Machine Builder Name Role Phone Polo Pearce Primary Care Provider [phone] Reason for Visit * Auth/Cert Specialty Diagnoses / Procedures Referred By Jayant harris Referred To Contact Diagnoses NSTEMI (non-ST elevated myocardial infarction) NSTEMI Procedures EMERGENCY OBSVO Referral ID Status Reason Start Date Expiration Date Visits Re quested Visits Authorized [id number] 1 1 Encounter Details Date Type Department Care Team (Late st Contact Info) Description 06/09/2021 8:15 AM EDT - 06/09/2021 9:15 AM EDT [place] [phone] Aaron Ash MD [facility] [place] [address] CARDIAC CATHETERIZATION Social History Tobacco Use Types [...] Sign Reading Time Taken Comments Blood Pressure 114/63 06/09/2021 8:40 AM EDT Pulse 52 06/09/2021 8:40 AM EDT Temperature 36.2 ??C (97.2 ??F) 06/09/2021 8:00 AM ED T Respiratory Rate 14 06/09/2021 8:00 AM EDT Oxygen Saturation 97% 06/09/2021 8:40 AM EDT Inhaled Oxygen Concentration - - Weight 95 kg (209 lb 7 oz) 06/09/2021 3:45 AM ED T Height 162.6 cm (5' 4) 06/07/2021 3:53 PM EDT Body Mass Index 35.95 06/07/2021 3:53 PM EDT documented in this encounter Discharge Summaries * Mario Hallman MD - 06/08/2021 1:24 PM EDT Discharge Summary Patient Name: Loida Roque Patient Age: 51 y.o. Language: Romansh Race: White Ethnicity: Not nor Admit date: [...] in a week and prn ?? Consider [facility] as an out patient Inpatient Provider Contact Information: Dr. Mario Zaidi PA-C [phone] Discharge Diagnoses (Hospital Problems) and Secondary Diagnoses [...] change from prior in 08/2019. ?? Procedure Complete-04365. Image enhancement Definity was used for left [...] who have questions please contact the health rn patient care that requested 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 CXR 06/08/2021 [...] is clear. No effusion. No pneumothorax. ?? Mel 06/09/2021 History of Presentation: 51 Y O [...] 15. ?? Hospital Course: On admission to [facility], the patient had no complaints of chest pain or shortness of breath at rest.Telemetry was attached which showed normal sinus rhythm. Heparin drip was infusing. [facility] records/transfer records were reviewed. Baseline labs were checked and/or drawn. Chest Pain, MA ruled out, Echo showed preserved LVEF Given the patient's risk factors, chronic non-specific ST-T changes on ECG, and here at [facility] normaltroponin as well as reproducible chest tenderness [...] significant weight, however during her stay at [facility] now she lost only 0.9 kg, to [...] needed Follow up Appointments: PCP Tim Rogers, OIL SPREADER OPERATOR [phone] to see you in a week (patient to set this up) Mel placed on 06/09/2021 Cardiology to see in a month and prn. Dr. Kinsey to see the patient in [place] on July 23 at 920 am. Please call [phone] with questions. Home oxygen therapy: N/A Arrangements for VNA/home care: none Future Appointments and Orders Future Appointments and Orders Future Appointments Provider Department Dept Phone 07/23/2021 8:20 AM Jaspreet Kinsey MD Cardiology at [place] Arrive at: [facility] [address] [phone] Future Orders Complete By Expires Ziopatch 48 Hrs-15 Days [CPC3946 CPT(R)] 06/09/2021 12/09/2021 Process Instructions: Scheduling Instructions: Questions: Does the patient have a pacemaker? If yes provide HI/LO settings: Apply for 7 or 14 days?: 14 Where will study be performed?: [facility] Clinics Basic Metabolic Panel (non-fasting) [LAB15 Custom] 06/16/2021 (Approximate) 06/09/2022 Process Instructions: INCLUDES: Calcium, BUN, Creat, GFR, Glucose, Lytes Scheduling Instructions: Comments: Questions: Discharge References/Attachments None documented in this encounter Discharge Instructions * Discharge Instructions* Deja Zaidi PA - 06/08/2021 1:56 PM EDT Return to work: One week Driving: as needed Follow up Appointments: PCP Tim Rogers, OIL SPREADER OPERATOR [phone] to see you in a week (patient to set this up) Ziopatch placed on 06/09/2021 Cardiology to see in a month and prn. Dr. Kinsey to see the patient in [place] on July 23 at 920 am. Please call [phone] with questions. Home oxygen therapy: N/A Arrangements for VNA/home care: none documented in this encounter Medications at Time of Discharge Medication Sig Dispensed Refills Start Date End Date rOPINIRole (Requip) 1 mg Tablet Take 2 mg by mouth 2 times daily. 07/16/2020 loratadine (Claritin) 10 mg Tablet Take 10 mg by mouth daily as needed. fluticasone propionate (FLONASE) 50 mcg/actuation [place], Suspension 1 spray by Each Nare route [...] this encounter Progress Notes * Rocio Rosenthal T - 06/09/2021 1:31 PM EDT Nutrition Services Note - Low Nutrition Acuity Loida Roque is a 51 y.o. female Reason for intervention: education Nutrition Plan: Pt seen for Na2gm diet. Charge Rn informed pt of current diet orders and their restrictions. Pt expressed understanding and informed this mortgage underwriter that she tries to limit salt use at home. Charge Rn and pt discussed common sources of sodium (pre-prepared foods) and alternatives (fresh/frozen veggies). Provided educational material and encouraged pt to reach out with any questions or concerns. Will continue to monitor and follow up. Continue current diet. Monitor weight. Encourage good oral intake. Support and encouragement provided. Discussed case with Clinical Dietitian Active Orders Diet Daily Healthy Menu Choices/Cardiac diet ([facility]-Diet) 2 GM NA Frequency: Effective Now Number [...] nausea and no vomiting Last Bowel Movement: (ELECTRIC RANGE SERVICER) Patient education / questions: provided diet order education and patient with good understanding, written education and contact information provided and all nutrition related questions answered at this time Nutrition services to follow weekly through hospital course unless consulted in the interim. Rocio Rosenthal Pager: [phone] * Deja Zaidi PA - 06/09/2021 9:14 AM EDT Inpatient Cardiology Discharge Day Note Patient Name: Loida Roque Service: ESE TEACHER / PA Responsible Attending: Mario Hallman MD Reason for continued hospitalization: RHC today Brain MRI Telemetry monitoring NPO for [...] Hold] topiramate 50 mg Oral BID ??? [MAR Hold] montelukast 10 mg Oral Nightly ??? [May] metoprolol tartrate 12.5 mg Oral 2 times per day ??? [May] lisinopriL 2.5 mg Oral Daily ??? [May] atorvastatin 80 mg Oral QPM ??? [MAY Hold] aspirin 81 mg Oral Daily ??? [May] furosemide 20 mg Oral Daily ??? [May] traZODone 100 mg Oral Nightly Continuous Infusions: PRN Meds:midazolam (PF), atropine, fentaNYL (PF), [May] acetaminophen, [MAY Hold] traMADoL, [May] hydrOXYzine, [May] albuteroL Physical Exam: Vital Signs: Last value [...] (from the past 24 hour(s)) urine, qualitative ([facility]/P/NL) Result Value Ref Range Spec [place] UA 1.010 1.006 - 1.030 HCG Qual [...] seen on recent CT scan presents to [facility] from [facility] with a [...] with Dr. Hallman. ?? JOCY Hernandez Pager [phone] JOCY MCKOY 06/09/2021 Associated attestation - Mario Hallman MD - 06/09/2021 9:37 PM EDT Cardiology Attending Addendum I shared this visit with JOCY Zaidi and guided the medical decision- making. I explained to patient the findings of echo, R heart catheterization and our diagnostic impression and medications (furosemide and empagliflozin) and possible adverse events. More than 30 minutes were spent in szzz-[id number] contact with patient and with arranging discharge [...] Jaspreet Pardo - 06/08/2021 8:34 PM EDT Machine Repairman Encounter Note Patient Name: Loida Roque : [id number] MR#: [id number] Admit Date: 06/07/2021 3:49 PM Hospital Day 0 days Narrative: Initial rounding visit to introduce ux ui designer services and to assess patient interest. Patient [...] Day Note Patient Name: Loida Roque Service: ESE TEACHER / PA Responsible Attending: Mario Hallman MD [...] ??? heparin (porcine) infusion 1,100 Units/hr (06/08/21 0763) PRN Meds:hydrOXYzine, heparin (porcine) infusion AND heparin [...] PCR Not Detected Not Detected SARS-CoV-2 Source ESE TEACHER Swab Troponin Result Value Ref Range Troponin-T [...] seen on recent CT scan presents to [facility] from [facility] with a [...] with Dr. Hallman. ?? JOCY Hernandez Pager [phone] JOCY MCKOY 06/08/2021 Associated attestation - Mario [...] Level IU/mL 0.08 [1] 1.06 !! [2] notified. Repeat draw requested and sent to lab at 0530. documented in this encounter H&P Notes * Deja Zaidi PA - 06/07/2021 4:37 PM EDT Images from the original note were not included. Cardiology Admission H&P Patient Name: Loida Roque Date of : 1970 Age: 51 y.o. Hospital Admit Date: 06/07/2021 Inpatient Attending: Mario Hallman MD PCP: Tim Rogers APRN Presenting Diagnosis/Chief Complaint: 12/15 RUQ pain radiating to her back, constant [...] 138/79, HR 63 and RR 15. Echo 2019 BP: 120/74 ?? SUMMARY: ?? 1. 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 ??? fluticasone propionate (FLONASE) 50 mcg/actuation [place], Suspension 1 spray by Each Nare route [...] seen on recent CT scan presents to [facility] from [facility] with a NSTEMI. She has an elevated trop, BNP and lateral EKG changes. Patient is now awaiting an Echo and cardiac cath. Neurology consult called in to determine if she needs imaging prior to her Echo and cath given garbled speech a week ago. Stable at this time. TREATMENT PLAN: NSTEMI Admit to [facility] for telemetry monitoring Serial enzymes and [...] JOCY Hernandez 06/07/2021 Provider: JOCY MCKOY Pager [phone] 06/07/2021 Associated attestation - Mario Hallman MD [...] COVID test: Lab Results Component Value Date JUNNIIPPRF2I Not Detected 06/07/2021 Present on Admission: ??? NSTEMI (non-ST elevated myocardial infarction) ??? Asthma ??? MARYLOU on CPAP ??? Insomnia ??? Chronic heart failure with preserved ejection fraction Hospitalizations Within the Past 30 Days: no previous admission in last 30 days Patient receiving hospital care under Observation status. Admission order reviewed. Primary Insurance on file: [facility] Secondary Insurance on file:@ Primary care provider on file: Tim Rogers, OIL SPREADER OPERATOR [phone] Pharmacy: [facility] - [facility], [place] - [address] [address] Advance Care Planning: Attempt Cardiopulmonary Resuscitation - Inpatient <no information> -Advanced Directive: No, declines (Boby (spouse) SDM) Current Functional Ability: Independent Functional Status Prior to Admission: Independent Home Environment: Others in the home: spouse. Current Living Arrangements: home/apartment/condo. Accessibility Concerns: . Current DME: none [address] [place] [address] Social & Family Supports: All names listed [...] private vehicle when medically ready. Registered Nurse Aquatic Biologist / Blindstitch Machine Operator will continue to follow patient???s progress and [...] well known:: 05/26/21 Time last well known:: 899 Date of discovery of symptoms:: 05/27/21 Time [...] Daily. ??? 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 No bony deformity Neuro Exam: MS: AAOx4, clear language, no dysarthria, follows commands CN: [...] L Elbow flexion 5/5 R, 5/5 L Surtass Analyst LE: 5/5 R, 5/5 L Hip flexion [...] PCR Not Detected Not Detected SARS-CoV-2 Source ESE TEACHER Swab Troponin Result Value Ref Range Troponin-T [...] CTH Melany Kahn MD Vascular Neurology Standard [facility] Swallow Screen: This screen is to be [...] diet as medical provider deems appropriate. Consider COMPENSATION COORDINATOR consult for full evaluation and diet recommendations. [...] NPO at midnight for cath 06/08 ECHO UFH due at 2200 INDIVIDUALIZED FALL PREVENTION INTERVENTIONS: [...] for further details. JOCY MCKOY 06/07/2021 Pager [phone] documented in this encounter Plan of Treatment Upcoming Encounters Date Type Department Care Team (Late st Contact Info) Description 10/08/2023 8:30 AM EDT Tech Visit [place] [phone] Jose oCok 10/08/2023 9:30 AM EDT Office Visit [place] [phone] MD [facility] [place] [address] 10/21/2023 10:30 AM EDT Appointment [place] [phone] Mary Reyes [facility] [place] [address] 10/21/2023 11:30 AM EDT Appointment [place] [phone] Mary Reyes [facility] [place] [address] 10/21/2023 12:30 PM EDT Appointment [place] [phone] Mary Reyes [facility] [place] [address] 10/21/2023 1:30 PM EDT Appointment [place] [address] Mary Reyes APRN [facility] [place] [address] 10/21/2023 2:30 PM EDT Appointment [place] [address] Mary Reyes APRN [facility] [place] [address] 10/26/2023 4:00 PM EDT Office Visit Cardiology at [address] [phone] Jaspreet Kinsey MD [facility] [place] [address] 10/28/2023 9:00 AM EDT Office [place] [address] 10/29/2023 10:00 AM EDT Clinical [place] [address] 10/29/2023 10:15 AM EDT Procedure [place] [address] 11/01/2023 5:00 PM EDT Office [place] [address] Selene Browning, PhD [facility] [place] [place] [address] 11/22/2023 4:40 PM EDT Office Visit Cardiology at [address] [phone] Porsha Mcdaniels MD [facility] [place] [address] 12/13/2023 10:00 AM EDT Clinical Support Gastroenterology at [facility] [place] [address] Lucero Romero, AL[place] [facility] [place] [address] documented as of this encounter Procedures Procedure [...] (non-ST elevated myocardial infarction) RAPID COVID-19 PCR ([facility]/APD/[facility]) Routine 06/07/2021 4:30 PM EDT documented in this encounter Results * Ziopatch 48 Hrs-15 Days (06/09/2021 3:48 PM EDT) Anatomical Region Laterality Modality Other Narrative 07/01/2021 9:[address] [facility] ? Zio Patch? Ambulatory Cardiac Event Monitor [...] atrial premature beat conducted with a prolonged ND interval, strongly suggestive of atrioventricular makayla reentrant [...] as described ?? Kurt Larose MD, PhD, [facility] Cardiac Electrophysiology Mario Hallman MD CARDIAC SERVICES ORD ERABLES * CARDIAC CATHETERIZATION (06/09/2021 9:05 AM EDT) Anatomical Region Laterality Modality Other Narrative 06/09/2021 9:09 AM EDT ?[facility] ? Cardiac Catheterization/Intervention Report ? Patient Name: Neisha, Loida ? Procedure Date: 06/09/2021 ? A #: [id number] ? Primary Physician: Nilsa, Aaron Santana ? Case #: [id number] ? File Name: [id number] ? Catheterization Order Number: [id number] ? [facility] ? Final Report [place], [place] ? Patient Name: ? Loida Neisha ? ID#: ?[id number] ? : ?1970 ? Procedure Date: ? June 09, 2021 ?Case #: ? [id number] ? Room: ? 1 ? Case Physician: [...] procedure was Urgent. The indication for ?the slab off mill tender visit is other indication. Chest pain symptom [...] Ash M.D. ? Electronically Signed by: Aaron Ash M.D. ? Report Finalized: 06/09/2021 ??09:01 ? Report Last Ammended: 06/23/2021 ??09:51 ? Procedure Note Aaron Ash MD - 06/23/2021 [facility] Cardiac Catheterization/Intervention Report Patient Name: Loida Roque Procedure Date: 06/09/2021 A #: [id number] Primary Physician: Aaron Ash Case #: [id number] File Name: [id number] Catheterization Order Number: [id number] [facility] FinalReport [place], [place] Patient Name: Loida Roque ID#:[id number] :1970 Procedure Date: June 09, 2021 Case #: [id number] Room: 1 Case Physician: Aaron Ash M.D. Start: 08:31 Fellow: Poncho Yates M.D. Admission:06/07/2021 Procedures: * Right Heart Catheterization * Oximetry History Loida Roque is a 51 year old woman. She has hypertension. The patient's smoking status is Never. She has hypercholesterolemiamanaged with lipid therapy. The patient is also status post a remotemyocardial infarction. Prior to the initiation of this procedure, the patientwas designated as ASA Class III. The [facility] clinical frailty scale is 2:Well. Diagnostic Tests: [...] diagnostic procedure was Urgent. The indicationfor the slab off mill tender visit is other indication. Chest pain symptomassessment [...] pro-Brain Natriuretic Peptide (06/09/2021 3:37 AM EDT) ProBNP 911(H) <=124 pg/mL [facility] Blood Venous Draw / Unknown 06/09/2021 3:37 AM EDT 06/09/2021 3:59 AM EDT Narrative Resulting Agency Comment Spec In Lab Deja SANDRA CHEMISTRY ORDERABLES [facility] [place] [address] * Differential, Automated (06/09/2021 3:37 AM EDT) Pathologist [facility] Neutrophils % 64.9 % [facility] Neutr Abs (ANC) 5.12 1.70 - 6.10 x10(3)/[facility] Lymphocytes % 21.9 % [facility] Lymphocytes Abs 1.7 0.9 - 3.2 x10(3)/[facility] Monocytes % 8.6 % [facility] Monocyte Abs 0.7 0.3 - 0.9 x10(3)/[facility] Eosinophils % 3.4 % [facility] Eosinophils Abs 0.3 0.0 - 0.4 x10(3)/[facility] Basophils % 0.8 % [facility] Basophils Abs 0.1 0.0 - 0.1 x10(3)/[facility] Immature Gran % 0.40 % [facility] Comment: Immature granulocytes(IG's)percentage and absolute count will include metamyelocytes, myelocytes, and promyelocytes. Blood smears from CBCs yielding IG's will be scanned manually for concordance. If this scan disagrees with the automated IG or if promyelocytes are noted, a manual differential will be performed. Shonda Gran Abs 0.03 0.00 - 0.04 x10(3)/[facility] Blood 06/09/2021 3:37 AM EDT 06/09/2021 3:58 AM EDT Narrative Resulting Agency Comment Spec In Lab Deja SANDRA HEMATOLOGY ORDERABLE S [facility] [place] [address] * (ABNORMAL) Hemogram (06/09/2021 3:37 AM EDT) Pathologist [facility] WBC 7.9 4.0 - 9.5 x10(3)/[facility] RBC 4.88 4.00 - 5.21 x10(6)/[facility] Hemoglobin 15.2 11.7 - 15.5 g/dL [facility] Hematocrit 46.5(H) 35.7 - 45.8 % [facility] MCV 95.3(H) 82.6 - 94.4 [facility] MCH 31.1 27.1 - 32.0 pg [facility] MCHC 32.7 31.7 - 35.0 g/dL [facility] Platelets 334 145 - 357 x10(3)/[facility] RDWSD 49.2(H) 37.0 - 46.0 [facility] RDWCV 14.5(H) 11.5 - 14.1 % [facility] MPV 10.2 7.6 - 12.9 [facility] nRBC % Auto 0.0 % [facility] nRBC Abs Auto 0.000 0.000 - 0.000 x10(3)/[facility] Blood 06/09/2021 3:37 AM EDT 06/09/2021 3:58 AM EDT Narrative Resulting Agency Comment Spec In Lab Deja SANDRA HEMATOLOGY ORDERABLE S [facility] [place] [address] * (ABNORMAL) BMP w/fasting Glucose (06/09/2021 3:37 AM EDT) Glucose Fasting 103(H) 65 - 99 mg/dL [facility] [...] of Diabetes Mellitus, Position Statement from the [employer]. ??Diabetes Care, Volume 33, Supplement 1, Mar 2009 BUN 23(H) 8 - 18 mg/dL [facility] Creatinine 0.86 0.70 - 1.20 mg/dL [facility] Sodium 137 135 - 145 mmol/L [facility] Potassium 4.1 3.5 - 5.0 mmol/L [facility] Comment: Please note: ??Patients with WBC >100,000 may have falsely elevated Potassium levels. ??For accurate Potassium quantification in these patients send serum separator tube (gold top) for subsequent determinations. ??Contact the Clinical Chemistry Laboratory if there are any questions. Chloride 102 98 - 107 mmol/L [facility] CO2 22 22 - 31 mmol/L [facility] Anion Gap 13 5 - 15 mmol/L [facility] Calcium 9.3 8.5 - 10.5 mg/dL [facility] Estimated GFR 78 >=60 mL/min/1. 73 m?? [facility] Comment: This patient? s estimated [...] Hallman MD CHEMISTRY ORDERABLES Performing Organization Address [facility] Co de Phone Number [facility] [place] [address] * Heparin (unfractionated) Level (06/08/2021 4:07 PM EDT) Heparin UFH Level <0.04 IU/mL [facility] Comment: Heparin [...] MD HEMATOLOGY ORDERABLE S Performing Organization Address [facility] Co de Phone Number [facility] [place] [address] * XR Chest PA & Lateral (Generic) [...] who have questions please contact the health rn patient care that requested 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 ? Narrative [...] patients who have questions please contactthe health rn patient care that requested 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 Electronically signed by: Magda Machado MD, [facility] ([phone]), at 06/08/2021 6:00 PM Mario Hallman MD [...] who have questions please contact the health rn patient care that requested 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 ? Narrative [...] patients who have questions please contactthe health rn patient care that requested 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 Mario Hallman MD IMG MRI ORDERABLES * (ABNORMAL) CRP, acute inflammation (06/08/2021 11:58 AM EDT) Pathologist [facility] CRP 28.1(H) <=4.9 mg/L [facility] Blood 06/08/2021 11:5 8 AM EDT 06/08/2021 12:04 PM EDT Narrative Resulting Agency Comment Spec In Lab Mario Hallman MD CHEMISTRY ORDERABLES Performing Organization Address City/[facility]/ZIP Co de Phone Number [facility] [place] [address] * CK (06/08/2021 11:58 AM EDT) Pathologist [facility] CK, Total 30 0 - 160 unit/L [facility] Blood 06/08/2021 11:5 8 AM EDT 06/08/2021 12:04 PM EDT Narrative Resulting Agency Comment Spec In Lab Mario Hallman MD CHEMISTRY ORDERABLES Performing Organization Address [facility]/ZIP Co de Phone Number [facility] [place] [address] * (ABNORMAL) Sedimentation rate (06/08/2021 11:58 AM EDT) Pathologist [facility] Sed Rate 53(H) 2 - 39 mm/hr [facility] [...] MD HEMATOLOGY ORDERABLE S Performing Organization Address [facility] Co de Phone Number [facility] [place] [address] * Heparin (unfractionated) Level (06/08/2021 11:58 AM EDT) Heparin UFH Level 0.77 IU/mL [facility] Comment: Heparin [...] MD HEMATOLOGY ORDERABLE S Performing Organization Address [facility]/ZIP Co de Phone Number [facility] [place] [address] * urine, qualitative ([place]/[facility]/CGP/NLH) (06/08/2021 11:51 AM EDT) Spec [place] UA 1.010 1.006 - 1.030 [facility] HCG Qual Negative [facility] Comment: Dilute urine samples can result in a false negative test. Repeat testing on a first morning sample or a plasma quantitative hCG measurement is recommended. Urine 06/08/2021 11:5 1 AM EDT 06/08/2021 12:32 PM EDT Narrative Resulting Agency Comment Spec In Lab Mario Hallman MD URINE ORDERABLES Performing Organization Address [facility]/State/ZIP Co de Phone Number [facility] [place] [address] * ECHO COMPLETE W CONTRAST (06/08/2021 11:09 AM EDT) Anatomical Region Laterality Modality Other 06/08/2021 9:35 AM EDT Narrative 06/08/2021 12:42 PM EDT ?[facility] ?[address] ? [place] [address] ?Voice: ?Fax: ? Echocardiogram Report Name: LOIDA ROQUE ? Study Date: 06/08/2021 09:35 AMBP: 109/69 mmHg ? Patient Location: [facility]^432^A : 1970 ? Height: 163 cm ? Account: [id number] Age: 51 yrs ? Weight: 95 kg Gender: Female ?BSA: 2.0 m2 Ordering Physician: DONALD Referring Physician: AJ HARTMAN Performed By: Aaron Herr RDCS Reason For Study: NSTEMI (non-ST elevated myocardial infarction) Exam Location: [facility]. Interpretation Summary 1. Left ventricle is [...] significant change from prior in 08/2019. Procedure Complete-[id number]. Image enhancement Definity was used for left [...] Procedure Note Kai Haider MD - 06/08/2021 [place] [address] Voice: Fax: Echocardiogram Report Name: LOIDA ROQUE Study Date: 209:35 AMBP: 109/69 mmHg Patient Location:[place] [address]^A : 1970 Height: 163 cm Account: [id number] Age: 51 yrs Weight: 95 kg Gender: Female BSA: 2.0 m2 Ordering Physician: DONALD Referring Physician: AJ HARTMAN Performed By: Aaron eHrr RDCS Reason For Study: NSTEMI (non-ST elevated myocardial infarction) Exam Location: [facility]. Interpretation Summary 1. Left ventricle is [...] significant change from prior in 08/2019. Procedure Complete-[id number]. Image enhancement Definity was used for left [...] EDT) Heparin UFH Level 1.20(Crit ical) IU/mL [facility] Comment: [...] Lab Edie Costello MD HEMATOLOGY ORDERABLE S Performing Organization Address City/[facility]/ZIP Co de Phone Number [facility] [place] [address] * (ABNORMAL) Differential, Automated (06/08/2021 4:41 AM EDT) Neutrophils % 71.8 % [facility] Neutr Abs (ANC) 8.09(H) 1.70 - 6.10 x10(3)/mc L [facility] Lymphocytes % 18.0 % [facility] Lymphocytes Abs 2.0 0.9 - 3.2 x10(3)/ L [facility] Monocytes % 5.7 % [facility] Monocyte Abs 0.6 0.3 - 0.9 x10(3)/ L [facility] Eosinophils % 3.5 % [facility] Eosinophils Abs 0.4 0.0 - 0.4 x10(3)/[facility] LABORATORY Basophils % 0.6 % [facility] Basophils Abs 0.1 0.0 - 0.1 x10(3)/[facility] LABORATORY Immature Gran % 0.40 % [facility] Comment: Immature granulocytes(IG's)percentage and absolute count will include metamyelocytes, myelocytes, and promyelocytes. Blood smears from CBCs yielding IG's will be scanned manually for concordance. If this scan disagrees with the automated IG or if promyelocytes are noted, a manual differential will be performed. Shonda Gran Abs 0.05(H) 0.00 - 0.04 x10(3)/ L [facility] Blood 06/08/2021 4:41 AM EDT 06/08/2021 5:11 AM EDT Narrative Resulting Agency Comment Spec In Lab Deja SANDRA HEMATOLOGY ORDERABLE S Performing Organization Address City/[facility]/ZIP Co de Phone Number [facility] [place] [address] * (ABNORMAL) Hemogram (06/08/2021 4:41 AM EDT) WBC 11.3(H) 4.0 - 9.5 x10(3)/[facility] LABORATORY RBC 4.64 4.00 - 5.21 x10(6)/[facility] LABORATORY Hemoglobin 13.9 11.7 - 15.5 g/dL [facility] Hematocrit 43.0 35.7 - 45.8 % [facility] MCV 92.7 82.6 - 94.4 [facility] LABORATORY MCH 30.0 27.1 - 32.0 pg [facility] MCHC 32.3 31.7 - 35.0 g/dL [facility] Platelets 312 145 - 357 x10(3)/[facility] RDWSD 47.4(H) 37.0 - 46.0 [facility] LABORATORY RDWCV 14.3(H) 11.5 - 14.1 % [facility] MPV 10.8 7.6 - 12.9 [facility] LABORATORY nRBC % Auto 0.0 % [facility] nRBC Abs Auto 0.000 0.000 - 0.000 x10(3)/[facility] LABORATORY Blood 06/08/2021 4:41 AM EDT 06/08/2021 5:11 AM EDT Narrative Resulting Agency Comment Spec In Lab Deja SANDRA HEMATOLOGY ORDERABLE S [facility] [place] [address] * (ABNORMAL) Heparin (unfractionated) Level (06/08/2021 4:41 AM EDT) Heparin UFH Level 1.06(Crit ical) IU/mL [facility] Comment: [...] Lab Mario Hallman MD HEMATOLOGY ORDERABLE S [facility] [place] [address] * (ABNORMAL) BMP w/fasting Glucose (06/08/2021 4:41 AM EDT) Glucose Fasting 95 65 - 99 mg/dL [facility] [...] of Diabetes Mellitus, Position Statement from the [employer]. ??Diabetes Care, Volume 33, Supplement 1, Mar 2009 BUN 21(H) 8 - 18 mg/dL [facility] Creatinine 0.87 0.70 - 1.20 mg/dL [facility] [...] 15 mmol/L [facility] Calcium 8.7 8.5 - 10.5 mg/dL [facility] Estimated GFR 77 >=60 mL/min/1. 73 m?? [facility] Comment: This patient? s estimated [...] In Lab Mario Hallman MD CHEMISTRY ORDERABLES [facility] [place] [address] * Troponin (06/08/2021 4:41 AM EDT) Troponin-T <0.01 0.00 - 0.00 ng/mL [facility] Comment: The 99th percentile for [...] ischemia ?? New or presumed new significant ZA-cyffokk-W wave (ST-T) changes or new left bundle [...] additional sample may be indicated. Reference: [place] Definition of Myocardial Infarction. Journal of the [employer] College [employer] 2012;60:1581-98 Blood 06/08/2021 4:41 AM EDT 06/08/2021 5:12 AM EDT Narrative Resulting Agency Comment Spec In Lab Mario Hallman MD CHEMISTRY ORDERABLES [facility] [place] [address] * Heparin (unfractionated) Level (06/07/2021 9:55 PM EDT) Heparin UFH Level 0.08 IU/mL [facility] Comment: Heparin [...] Lab Mario Hallman MD HEMATOLOGY ORDERABLE S [facility] [place] [address] * (ABNORMAL) pro-Brain Natriuretic Peptide (06/07/2021 5:26 PM EDT) Pathologist [facility] ProBNP 2,701(H) <=124 pg/mL [facility] Blood Venous Draw / Unknown 06/07/2021 5:26 PM EDT 06/07/2021 5:44 PM EDT Narrative Resulting Agency Comment Spec In Lab Deja SANDRA CHEMISTRY ORDERABLES Performing Organization Address [facility]/ZIP Co de Phone Number [facility] [place] [address] * (ABNORMAL) Differential, Automated (06/07/2021 5:26 PM EDT) [facility] Neutrophils % 74.6 % [facility] Neutr Abs (ANC) 8.97(H) 1.70 - 6.10 x10(3)/mc L [facility] Lymphocytes % 15.9 % [facility] Lymphocytes Abs 1.9 0.9 - 3.2 x10(3)/mc L [facility] Monocytes % 6.0 % [facility] Monocyte Abs 0.7 0.3 - 0.9 x10(3)/mc L [facility] Eosinophils % 2.6 % [facility] Eosinophils Abs 0.3 0.0 - 0.4 x10(3)/[facility] LABORATORY Basophils % 0.5 % [facility] Basophils Abs 0.1 0.0 - 0.1 x10(3)/mc L [facility] Immature Gran % 0.40 % [facility] Comment: Immature granulocytes(IG's)percentage and absolute count will include metamyelocytes, myelocytes, and promyelocytes. Blood smears from CBCs yielding IG's will be scanned manually for concordance. If this scan disagrees with the automated IG or if promyelocytes are noted, a manual differential will be performed. Shonda Gran Abs 0.05(H) 0.00 - 0.04 x10(3)/mc L [facility] Blood 06/07/2021 5:26 PM EDT 06/07/2021 5:36 PM EDT Narrative Resulting Agency Comment Spec In Lab Deja SANDRA HEMATOLOGY ORDERABLE S Performing Organization Address City/State/[facility] Co de Phone Number [facility] [place] [address] * (ABNORMAL) Hemogram (06/07/2021 5:26 PM EDT) WBC 12.0(H) 4.0 - 9.5 x10(3)/[facility] LABORATORY RBC 4.72 4.00 - 5.21 x10(6)/[facility] LABORATORY Hemoglobin 14.5 11.7 - 15.5 g/dL [facility] Hematocrit 44.0 35.7 - 45.8 % [facility] MCV 93.2 82.6 - 94.4 fL [facility] MCH 30.7 27.1 - 32.0 pg [facility] MCHC 33.0 31.7 - 35.0 g/dL [facility] Platelets 346 145 - 357 x10(3)/[facility] LABORATORY RDWSD 47.2(H) 37.0 - 46.0 [facility] LABORATORY RDWCV 14.4(H) 11.5 - 14.1 % [facility] MPV 10.6 7.6 - 12.9 fL [facility] nRBC % Auto 0.0 % [facility] nRBC Abs Auto 0.000 0.000 - 0.000 x10(3)/mcL [facility] Blood 06/07/2021 5:26 PM EDT 06/07/2021 5:36 PM EDT Narrative Resulting Agency Comment Spec In Lab Deja SANDRA HEMATOLOGY ORDERABLE S [facility] [place] [address] * BMP w/fasting Glucose (06/07/2021 5:26 PM EDT) Glucose Fasting 90 65 - 99 mg/dL [facility] [...] of Diabetes Mellitus, Position Statement from the [employer]. ??Diabetes Care, Volume 33, Supplement 1, Mar 2009 BUN 18 8 - 18 mg/dL [facility] Creatinine 1.07 0.70 - 1.20 mg/dL [facility] Sodium 137 135 - 145 mmol/L [facility] Potassium 4.3 3.5 - 5.0 mmol/L [facility] Comment: Please note: ??Patients with WBC >100,000 may have falsely elevated Potassium levels. ??For accurate Potassium quantification in these patients send serum separator tube (gold top) for subsequent determinations. ??Contact the Clinical Chemistry Laboratory if there are any questions. Chloride 101 98 - 107 mmol/L [facility] CO2 24 22 - 31 mmol/L [facility] Anion Gap 12 5 - 15 mmol/L [facility] Calcium 9.1 8.5 - 10.5 mg/dL [facility] Estimated GFR 60 >=60 mL/min/1. 73 m?? [facility] Comment: This patient? s estimated [...] Hallman MD CHEMISTRY ORDERABLES Performing Organization Address [facility]/ZIP Co de Phone Number [facility] [place] [address] * T3 Total (06/07/2021 5:26 PM EDT) T3, Total 134 80 - 200 ng/dL [facility] Blood 06/07/2021 5:26 PM EDT 06/07/2021 5:36 PM EDT Narrative Resulting Agency Comment Spec In Lab Mario Hallman MD CHEMISTRY ORDERABLES Performing Organization Address [facility]/ZIP Co de Phone Number [facility] [place] [address] * T4 Total (06/07/2021 5:26 PM EDT) T4, total 6.8 5.3 - 11.6 mcg/dL [facility] Comment: Reference Interval (mcg/dL): Females: ??First Trimester: 6.3-13.5 ??Second Trimester: 7.1-14.3 ??Third Trimester: 6.9-14.1 Blood 06/07/2021 5:26 PM EDT 06/07/2021 5:36 PM EDT Narrative Resulting Agency Comment Spec In Lab Mario Hallman MD CHEMISTRY ORDERABLES [facility] [place] [address] * (ABNORMAL) TSH (06/07/2021 5:26 PM EDT) TSH 5.83(H) 0.27 - 4.20 mcIU/mL [facility] Comment: Reference Interval (mcIU/mL): Females: ??First Trimester: 0.23-3.88 ??Second Trimester: 0.22-3.90 ??Third Trimester: 0.44-4.66 Blood 06/07/2021 5:26 PM EDT 06/07/2021 5:36 PM EDT Narrative Resulting Agency Comment Spec In Lab Mario Hallman MD CHEMISTRY ORDERABLES Performing Organization Address City/[facility]/ZIP Co de Phone Number [facility] [place] [address] * Lipase (06/07/2021 5:26 PM EDT) Lipase 18 0 - 60 unit/L [facility] Blood 06/07/2021 5:26 PM EDT 06/07/2021 5:36 PM EDT Narrative Resulting Agency Comment Spec In Lab Mario Hallman MD CHEMISTRY ORDERABLES [facility] [place] [address] * Amylase (06/07/2021 5:26 PM EDT) Amylase 39 28 - 100 unit/L [facility] Blood 06/07/2021 5:26 PM EDT 06/07/2021 5:36 PM EDT Narrative Resulting Agency Comment Spec In Lab Mario Hallman MD CHEMISTRY ORDERABLES [facility] [place] [address] * Lipid Panel (Reflex Direct LDL) (06/07/2021 5:26 PM EDT) Chol, Total 164 mg/dL [facility] Comment: Lower Risk: <200 mg/dL Average Risk: 200-239 mg/dL Higher Risk: >jg=426 mg/dL Triglycerides 144 mg/dL [facility] Comment: Average Risk/Lower Risk: <150 mg/dL Borderline High Risk: 150-199 mg/dL High Risk: 200-499 mg/dL Very High Risk: >ys=754 mg/dL HDL 44 mg/dL [facility] Comment: Males: ?? Higher Risk: <40 mg/dL Females: ?? Higher Risk: <50 mg/dL LDL Cholesterol 91 mg/dL [facility] Comment: Lowest Risk: <100 mg/dL Lower Risk: 100-129 mg/dL Borderline High Risk: 130-159 mg/dL High Risk: 160-189 mg/dL Very High Risk: >td=271 mg/dL Chol/HDL Ratio 3.7 ratio [facility] Lipid Interpretation See Note [facility] Comment: Lipid management should be guided by a patient? s ASCVD risk, goals and preferences. ACC/AHA Guidelines recommend high intensity statin if clinical ASCVD or LDL greater than or equal to 190 mg/dL. http://MovableInkurl.com/ATO-XRB-Hkzwrwlmj Adults aged 40-75 with LDL 70-189 mg/dL should have their 10 year ASCVD risk estimated with the ACC/AHA ASCVD risk mechanical estimator http://tools.acc.org/TKZWV-Wlfm-Ngruikfmh/ Statin should be discussed if risk greater [...] Hallman MD CHEMISTRY ORDERABLES Performing Organization Address [facility] Co de Phone Number [facility] [place] [address] * CK (06/07/2021 5:26 PM EDT) CK, Total 33 0 - 160 unit/L [facility] Blood 06/07/2021 5:26 PM EDT 06/07/2021 5:36 PM EDT Narrative Resulting Agency Comment Spec In Lab Mario Hallman MD CHEMISTRY ORDERABLES Performing Organization Address [facility] de Phone Number [facility] [place] [address] * Hemoglobin A1c (06/07/2021 5:04 PM EDT) [...] 1, S67-74 Est Avg Gluc 114 mg/dL [facility] Comment: eAG equivalents for HbA1c percentages: [...] into estimated average glucose values. ??Diabetes Care 2008:31(8):6864-0283. Blood 06/07/2021 5:04 PM EDT 06/07/2021 5:36 PM EDT Narrative Resulting Agency Comment Spec In Lab Mario Hallman MD CHEMISTRY ORDERABLES [facility] [place] [address] * Troponin (06/07/2021 5:04 PM EDT) Troponin-T <0.01 0.00 - 0.00 ng/mL [facility] Comment: The 99th percentile for [...] ischemia ?? New or presumed new significant BO-pwgjrjg-S wave (ST-T) changes or new left bundle [...] additional sample may be indicated. Reference: [place] Definition of Myocardial Infarction. Journal of the [employer] College of Cardiology 2012;60:1581-98 Blood 06/07/2021 5:04 PM EDT 06/07/2021 5:36 PM EDT Narrative Resulting Agency Comment Spec In Lab Mario Hallman MD CHEMISTRY ORDERABLES Performing Organization Address [facility] Co de Phone Number [facility] [place] [address] * EKG 12 Lead (06/07/2021 4:33 PM EDT) Ventricular rate 54 BPM MUSE SYSTEM Atrial Rate 54 BPM MUSE SYSTEM P-R Interval 166 ms MUSE SYSTEM QRS Duration 86 ms MUSE SYSTEM Q-T Interval 514 ms MUSE SYSTEM QTC Calculated (Bezet) 487 ms MUSE SYSTEM Calculated P [place] 30 degrees MUSE SYSTEM Calculated R [place] 22 degrees MUSE SYSTEM Calculated T [place] 18 degrees MUSE SYSTEM INTERPRETATION Sinus bradycardia Left atrial enlargement Cannot rule out Lateral infarct , age undetermined Abnormal ECG When compared with ECG of 31-AUG-2019 07:05, No significant change was found Confirmed by MD Dalia, Willy Huerta ([id number]) on 06/09/2021 4:36:27 PM MUSE SYSTEM 06/07/2021 4:33 PM EDT 06/09/2021 4:36 PM EDT Mario Hallman MD ECG ORDERABLES Performing Organization Address [facility] Co de Phone Number MUSE SYSTEM * COVID-19 PCR (06/07/2021 4:30 PM EDT) SARS-CoV-2 RNA PCR Not Detected Not Detected [facility] Comment: This result should be [...] using the Simplexa COVID-19 Direct Assay by [employer] as authorized by the FDA issued Emergency [...] Department of Pathology and Laboratory Medicine at [facility], certified under the Clinical Laboratory Improvement [...] fact sheets at the following FDA website: https://www.fda.gov/medical-devices/yrssymshirv-yaorthh-0641-akcmq-86-tzmlxhpdt- use-a gzemrqqldchga-knysofy-yofaens/hhxie-byjqlmvegqi-eaji SARS-CoV-2 Source 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 Swab [facility] Nasopharyngeal Swab 06/08/19 4:30 PM EDT 06/07/2021 4:45 PM EDT Comment:Symptoms->Surveillan ce Narrative Resulting Agency Comment Spec In Lab Mario Hallman MD MICROBIOLOGY - GENER AL ORDERABLES Performing Organization Address City/State/[facility] Co de Phone Number [facility] [place] [address] documented in this encounter Visit Diagnoses Not [...] Inhalation, 2 TIMES DAILY, First dose on [facility] 06/07/21 at 2100, Until Discontinued, Routine Given 06/07/2021 8:25 PM EDT 2 Inhalati on clopidogreL (Plavix) tablet 75 mg 75 mg, Oral, DAILY, First dose on [place] 06/08/21 at 0900, Until Discontinued, Routine Given 06/08/2021 9:08 AM EDT [address] (Cymbalta) capsule 60 mg 60 mg, Oral, DAILY, First dose on [facility] 06/07/21 at 1845, Until Discontinued, Routine Given 06/08/2021 9:02 PM EDT 60 mg Given 06/07/2021 9:00 PM EDT 60 mg empagliflozin (Jardiance) Tab 10 mg 10 mg, Oral, DAILY, First dose on [place] 06/08/21 at 1545, Until Discontinued, Routine Given [...] 40 mg, Intravenous, ONCE, 1 dose, On [place] 06/08/21 at 1545 Given 06/08/2021 5:01 PM EDT 40 mg furosemide (Lasix) tablet 20 mg 20 mg, Oral, DAILY, First dose on [facility] 06/07/21 at 1845, Until Discontinued, Routine Given 06/09/2021 9:39 AM EDT 20 mg Given 06/08/2021 9:08 AM EDT 20 mg gabapentin (Neurontin) capsule 300 mg 300 mg, Oral, 2 TIMES DAILY, First dose on [facility] 06/07/21 at 2100, Until Discontinued, Routine Given [...] 1610, Until 06/07/21 at 1614, Luiza Armstrong: aimeeinet override heparin (porcine) 50 units/mL in sodium [...] Admin Adt)0939 (Given - Provider: Jo Ann Maldonado, ERWIN) atorvastatin (Lipitor) tablet 80 mg 80 mg, [...] 0900 (Not Given - Provider: Jo Ann Mladonado RN - Reason: Patient/family refused)2100 (Not Given - Provider: Colette Medina RN - Reason: Patient/family refused) 0853 (MAR Hold - Provider: Admin Adt - Reason: Transfer to a Procedural area)0900 (Automatically Held - Provider: Admin Adt)0929 (MAR Unhold - Provider: Admin Adt) clopidogreL (Plavix) tablet 75 mg (CANCELED) 75 mg, Oral, DAILY, First dose on 06/08/21 at 0900, Until Discontinued, Routine 0908 (Given - Provider: Jo Ann Maldonado RN) DULoxetine DR (Cymbalta) capsule 60 mg 60 mg, Oral, DAILY, First dose on 06/07/21 at 1845, Until Discontinued, Routine 2100 (Given - Provider: Olive Anne RN) 2102 (Given - Provider: Colette Medina RN) 0853 (MAR Hold - Provider: Admin Adt - Reason: Transfer to a Procedural area)0929 (MAR Unhold - Provider: Admin Adt) empagliflozin (Jardiance) Tab 10 mg 10 mg, Oral, DAILY, First dose on 06/08/21 at 1545, Until Discontinued, Routine 1717 (Given - Provider: Jo Ann Maldonado RN - Comment: awaiting medication from pharmacy) 0853 (MAR Hold - Provider: Admin Adt - Reason: Transfer to a Procedural area)0900 (Automatically Held - Provider: Admin Adt)0929 ([facility] Unhold - Provider: Admin Adt)0940 (Given - Provider: Jo Ann Maldonado RN) fluticasone propionate (Flonase) 50 mcg/actuation nasal spray [...] she only takes this as needed.) 0853 ([facility] Hold - Provider: Admin Adt - Reason: Transfer to a Procedural area)0900 (Automatically Held - Provider: Admin Adt)0929 ([facility] Unhold - Provider: Admin Adt) furosemide (Lasix) (10 mg/mL) injection 40 mg (COMPLETED) 40 mg, Intravenous, ONCE, 1 dose, On 06/08/21 at 1545 1701 (Given - Provider: Jo Ann Maldonado RN) furosemide (Lasix) tablet 20 mg 20 mg, Oral, DAILY, First dose on 06/07/21 at 1845, Until Discontinued, Routine 184 (Not Given - Provider: Luiza Armstrong RN - Reason: See comment - Comment: patient took this medication at the [facility] this morning) 0908 (Given - Provider: Jo Ann Maldonado RN) 0853 ([facility] Hold - Provider: Admin Adt - Reason: Transfer to a Procedural area)0900 (Automatically Held - Provider: Admin Adt)0929 ([facility] Unhold - Provider: Admin Adt)0939 (Given - Provider: Jo Ann Maldonado RN) gabapentin (Neurontin) capsule 300 mg 300 mg, Oral, 2 TIMES DAILY, First dose on 06/07/21 at 2100, Until Discontinued, Routine 2026 (Given - Provider: Olive Anne RN) 0908 (Given - Provider: Jo Ann Maldonado RN)210 (Given - Provider: Colette Medina RN) 0853 ([facility] Hold - Provider: Admin Adt - Reason: Transfer to a Procedural area)0900 (Automatically Held - Provider: Admin Adt)0929 (MAR Unhold - Provider: Admin Adt)0940 (Given - Provider: Jo Ann Maldonado RN) lisinopriL (Zestril) tablet 2.5 mg 2.5 mg, Oral, DAILY, First dose on 06/07/21 at 1845, Until Discontinued, Routine 184 (Not Given - Provider: Olive Anne RN - Reason: See comment - Comment: dose in AM) 0908 (Given - Provider: Jo Ann Maldonado RN) 0853 (MAY Hold - Provider: Admin Adt - Reason: Transfer to a Procedural area)0900 (Automatically Held - Provider: Admin Adt)0929 ([facility] Unhold - Provider: Admin Adt)0939 (Given - [...] takes this as needed for allergies.) 0853 ([facility] Hold - Provider: Admin Adt - Reason: Transfer to a Procedural area)0900 (Not Given - Provider: Jo Ann Maldonado RN - Reason: Patient/family refused - Comment: only takes as needed)0929 ([facility] Unhold - Provider: Admin Adt) metoprolol tartrate (Lopressor) tablet 12.5 mg 12.5 mg, Oral, EVERY 12 HOURS SCHEDULED (2 times per day), First dose on 06/07/21 at 2100, Until Discontinued, Routine 2025 (Not Given - Provider: Olive Anne RN - Reason: Order parameters not met - Comment: HR <60) 0910 (Given - Provider: Jo Ann Maldonado RN)2100 (Not Given - Provider: Colette Medina RN - Reason: Order parameters not met - Comment: HR 56) 0853 ([facility] Hold - Provider: Admin Adt - Reason: Transfer to a Procedural area)0900 (Not Given - Provider: Jo Ann Maldonado RN - Reason: Order parameters not met - Comment: HR 48)0929 ([facility] Unhold - Provider: Admin Adt) montelukast (Singulair) tablet 10 mg 10 mg, Oral, NIGHTLY, First dose on 06/07/21 at 2100, Until Discontinued 2025 (Given - Provider: Olive Anne RN) 2058 (Given - Provider: Colette Medina RN) 0853 ([facility] Hold - Provider: Admin Adt - Reason: Transfer to a Procedural area)0929 ([facility] Unhold - Provider: Admin Adt) rOPINIRole (Requip) tablet 1 mg 1 mg, Oral, NIGHTLY, First dose on 06/07/21 at 2099, Until Discontinued, Routine 2025 (Given - Provider: Olive Anne RN) 2058 (Given - Provider: Colette Medina RN) 0853 ([facility] Hold - Provider: Admin Adt - Reason: Transfer to a Procedural area)0929 ([facility] Unhold - Provider: Admin Adt) topiramate (Topamax) tablet 50 mg 50 mg, Oral, 2 TIMES DAILY, First dose on 06/07/21 at 2100, Until Discontinued, Routine 2024 (Given - Provider: Olive Anne RN) 100 (Given - Provider: Jo Ann Maldonado RN - Comment: awaiting medication from pharmacy)2110 (Given - Provider: Colette Medina RN) 0853 ([facility] Hold - Provider: Admin Adt - Reason: Transfer to a Procedural area)0929 ([facility] Unhold - Provider: Admin Adt)1254 (Given - Provider: Jo Ann Maldonado RN - Comment: awaiting medication from pharmacy) traZODone (Desyrel) tablet 100 mg 100 mg, Oral, NIGHTLY, First dose (after last reorder) on 06/07/21 at 2114, Until Discontinued, Routine 2099 (Given - Provider: Olive Anne RN) 2099 (Given - Provider: Colette Medina RN) 0853 ([facility] Hold - Provider: Admin Adt - Reason: Transfer to a Procedural area)0929 ([facility] Unhold - Provider: Admin Adt) Continuous Medication [...] UFH 0.08) 0619 (Paused - Provider: Olive N Snow, RN)0719 (Rate/Dose Change - Provider: Olive Anne [...] PRN, Starting on 06/07/21 at 1808, Until 06/09/21 at 1531, Shortness of Breath, Routine 0853 ([facility] Hold - Provider: Admin Adt - Reason: Transfer to a Procedural area)0929 ([facility] Unhold - Provider: Admin Adt) atropine (0.1 mg/mL) injection 1 mg 1 mg, Intravenous, Administer over 4 Hours, EVERY 5 MIN PRN, 2 doses, Starting on 06/09/21 at 0859, Until 06/09/21 at 1531, Other, vasovagal episode, Call interventional [...] than 0.2 international unit/mL: No Bolus, Routine 2228 (Given - Provider: Olive Anne RN) hydrOXYzine [...] area)09 ([facility] Unhold - Provider: Admin Adt) Linked [...] documented in this encounter Care Teams Machine Builder Relationship Specialty Start Date End Date Polo Pearce PA [address] [place] [address] PCP - General Internal Medicine 06/09/21 documented as of this encounter
--- OUTSIDE RECORDS SUMMARY | 2023-09-20 14:39 | XMS_ITS | Encounter Summary ---
[place] [address] Care Team Providers Care Corn Sheller Name Role Phone Tim Rogers DNP Primary Care Provider [phone] Encounter Details Date Type Department Care Team (Late st Contact Info) Description 05/30/2021 Telephone [place] [phone] Beryl Grider Social History Tobacco Use Types [...] * Telephone Encounter - Beryl Grider - 05/30/2021 11:10 AM EDTSummary: [facility] Per Dr. Miller via [place], needs images sent to our PACS system for mutual pt. Called PCP's (Polo Pearce) office at [facility] & Nayeli Martin in Radiology to Assist in sending images of chest x- ray from May [address] CT scan of abdomen ( maybe chest) from May 27 to our PACS system with Pulm # [phone] opt 1 documented in this encounter Plan of Treatment Upcoming Encounters Date Type Department Care Team (Late st Contact Info) Description 10/08/2023 8:30 AM EDT Tech Visit Vascular Lab at [place] [phone] Jose Cook 10/08/2023 9:30 AM EDT Office Visit [place] [address] MD [facility] [place] [address] 10/21/2023 10:30 AM EDT Appointment Nuclear Medicine at [place] [phone] Mary Reyes [facility] [place] [address] 10/21/2023 11:30 AM EDT Appointment Nuclear Medicine at [place] [phone] Mary Reyes [facility] [place] [address] 10/21/2023 12:30 PM EDT Appointment [place] [phone] Mary Reyes [facility] [place] [address] 10/21/2023 1:30 PM EDT Appointment [place] [phone] Mary Reyes [facility] [address] 10/21/2023 2:30 PM EDT Appointment [place] [address] Mary Reyes APRN [facility] [place] [address] 10/26/2023 4:00 PM EDT Office Visit Cardiology at [address] [phone] Jaspreet Kinsey MD [facility] [place] [address] 10/28/2023 9:00 AM EDT Office [place] [address] 10/29/2023 10:00 AM EDT Clinical [place] [address] 10/29/2023 10:15 AM EDT Procedure [place] [address] 11/01/2023 5:00 PM EDT Office Visit Gastroenterology at [place] [phone] Selene Browning, PhD [facility] [place] [address] 11/22/2023 4:40 PM EDT Office Visit Cardiology at [address] [address] Porsha Mcdaniels MD [facility] [place] [address] 12/13/2023 10:00 AM EDT Clinical Support [place] [phone] [facility] [address] [facility] [place] [address] documented as of this encounter Visit Diagnoses Not on filedocumented in this encounter Care Teams Corn Sheller Relationship Specialty Start Date End Date Tim Rogers DNP PCP - General Family Medicine 08/28/19 06/08/21 documented as of this encounter
--- OUTSIDE RECORDS SUMMARY | 2023-09-20 14:39 | XMS_ITS | Encounter Summary ---
Author Organization [facility] [place] [address] Care Team Providers Care Gut Dropper Name Role Phone Tim Rogers DNP Primary Care Provider [phone] Encounter Details Date Type Department Care Team (Late st Contact Info) Description 06/06/2021 Telephone [place] [address] Paulo Ramachandran Jr., MD [facility] [place] [address] Social History Tobacco Use Types Packs/Day Years [...] encounter Miscellaneous Notes * Telephone Encounter - aPulo Ramachandran Jr., MD - 06/06/2021 5:59 PM EDT Contacted by [facility] ED for cardiology consultation. History taking and objective data are per the OSH ED provider/staff member. Referring Provider: Stuart Iyer MD [address] [place] [address] [place] [address] Indira Roque 51 y.o. w / a pmh sig for obesity, HFpEF, asthma, MARYLOU, and restless leg presenting w/ chest discomfort that progressed today. The pt was dx'd w/ LLL PNA about a week ago, and has had persistent SOB, which has worsened today. Chest pain is mostly burning and radiates to her epigastrium and back. A CTA was performed which showed no PE or dissection, but residual signs of LLL PNA were present. On further history taking the pt reported intermittent chest pain over a few weeks. Repeat troponin 406 to 411 BNP >4000 138/82 HR 60 RR 16 100% RA Troponin: 406 (ULN 50) --> 3hr repeat 411. BNP: > 4000 EKG: SR at 58 bpm, normal axis, inferolateral up-sloping STD, no sig change from prior. A/P: Given above history, presentation, and data, this episode most likely represents NSTEMI type I. In setting of multiple risk factors and recent PNA ACS is not uncommon. CHF exacerbation also on the differential. Given atypical nature of chest pain, recommended only aspirin and heparin, and the pt has been accepted for transfer to [facility] tomorrow. I asked the provider to contact us again if there is change in clinical status. documented in this encounter Plan of Treatment Upcoming Encounters Date Type Department Care Team (Late st Contact Info) Description 10/08/2023 8:30 AM EDT Tech [place] [address] Jose Cook 10/08/2023 9:30 AM EDT Office Visit [place] [address] MD [facility] VASCULAR SURGERY [place], [place] [phone] 10/21/2023 10:30 AM EDT Appointment [place] [address] Mary Reyes APRN [facility] [place] [address] 10/21/2023 11:30 AM EDT Appointment [place] [address] Mary Reyes, [facility] [place] [address] 10/21/2023 12:30 PM EDT Appointment [place] [address] Mary Reyes [facility] [place] [address] 10/21/2023 1:30 PM EDT Appointment [place] [address] Mary Reyes [facility] [place] [address] 10/21/2023 2:30 PM EDT Appointment [place] [address] Mary Reyes, [facility] [place] [address] 10/26/2023 4:00 PM EDT Office Visit Cardiology at [address] [phone] Jaspreet Kinsey MD [facility] [place] [address] 10/28/2023 9:00 AM EDT Office [place] [address] 10/29/2023 10:00 AM EDT Clinical [place] [address] 10/29/2023 10:15 AM EDT Procedure [place] [address] 11/01/2023 5:00 PM EDT Office Visit [place] [phone] Selene Browning, PhD [facility] [place] [address] 11/22/2023 4:40 PM EDT Office Visit Cardiology at [address] [phone] Porsha Mcdaniels MD [facility] [place] [address] 12/13/2023 10:00 AM EDT Clinical Support [place] [phone] Lucero Romero, RD [facility] [place] [address] documented as of this encounter Visit Diagnoses Not on filedocumented in this encounter Care Teams Gut Dropper Relationship Specialty Start Date End Date Tim Rogers DNP PCP - General Family Medicine 08/28/19 06/08/21 documented as of this encounter
--- OUTSIDE RECORDS SUMMARY | 2023-09-20 14:39 | XMS_ITS | Encounter Summary ---
Author Organization [facility] [place] [address] Care Team Providers Care Mechanic/Welder Name Role Phone Polo Pearce Primary Care Provider [phone] Encounter Details Date Type Department Care Team (Late st Contact Info) Description 06/11/2021 Telephone Cardiology at [address] [address] Deja Zaidi PA [facility] [place] [address] Social History Tobacco Use Types Packs/Day Years [...] encounter Miscellaneous Notes * Telephone Encounter - Deja Zaidi PA - 06/11/2021 2:48 PM EDT Images from the original note were not included. Called patient at home and told her to get the book ALWAYS HUNGRY by Jose Tuttle as per Dr. Hallman. ( Patient had called on the phone and asked the name and author) JOCY Hernandez 06/11/2021 JOCY Hernandez 06/11/2021 Pager [phone] documented in this encounter Plan of Treatment Upcoming Encounters Date Type Department Care Team (Late st Contact Info) Description 10/08/2023 8:30 AM EDT Tech Visit [place] [address] Jose Cook 10/08/2023 9:30 AM EDT Office [place] [phone] MD [facility] [place] [place] [address] 10/21/2023 10:30 AM EDT Appointment Nuclear Medicine at [place] [phone] Mary Reyes [facility] [address] 10/21/2023 11:30 AM EDT Appointment [place] [phone] Mary Reyes [facility] [address] 10/21/2023 12:30 PM EDT Appointment [place] [phone] Mary Reyes [facility] [place] [address] 10/21/2023 1:30 PM EDT Appointment [place] [phone] Mary Reyes [facility] [address] 10/21/2023 2:30 PM EDT Appointment [place] [phone] Mary Reyes APRN [facility] [place] [address] 10/26/2023 4:00 PM EDT Office Visit Cardiology at [address] [phone] Jaspreet Kinsey MD [place] [address] 10/28/2023 9:00 AM EDT Office Visit [place] [address] 10/29/2023 10:00 AM EDT Clinical Support [place] [address] 10/29/2023 10:15 AM EDT Procedure [place] [address] 11/01/2023 5:00 PM EDT Office Visit Gastroenterology at [place] [phone] Selene Browning, [facility] [place] [address] 11/22/2023 4:40 PM EDT Office Visit Cardiology at [address] [address] Porsha Mcdaniels MD [facility] [address] 12/13/2023 10:00 AM EDT Clinical [place] [address] [facility] [place] [address] documented as of this encounter Visit Diagnoses Not on filedocumented in this encounter Care Teams Mechanic/Welder Relationship Specialty Start Date End Date Polo Pearce PA [address] [place] [address] PCP - General Internal Medicine 06/09/21 documented as of this encounter
--- OUTSIDE RECORDS SUMMARY | 2023-09-20 14:39 | XMS_ITS | Encounter Summary ---
Author Organization [facility] [place] [address] Care Team Providers Care Environmental Engineering Manager Name Role Phone Polo Pearce Primary Care Provider [phone] Reason for Visit * Reason Onset Date Comments Medication Refill 06/10/2021 Jardiance Encounter Details Date Type Department Care Team (Late st Contact Info) Description 06/10/2021 Refill Cardiology at [address] [phone] Deja Zaidi PA [facility] [place] [address] Medication Refill (Jardiance) Social History Tobacco Use Types Packs/Day Years [...] Tech [place] [address] Jose Cook 10/08/2023 9:30 AM EDT Office [place] [address] MD [facility] [place] [address] 10/21/2023 10:30 AM EDT Appointment Nuclear Medicine at [place] [phone] Mary Reyes, [facility] [place] [address] 10/21/2023 11:30 AM EDT Appointment Nuclear Medicine at [address]1000 Mary Reyes [facility] [place] [address] 10/21/2023 12:30 PM EDT Appointment [place] [address] Mary Reyes [facility] [place] [address] 10/21/2023 1:30 PM EDT Appointment [place] [address] Mary Reyes [facility] [place] [address] 10/21/2023 2:30 PM EDT Appointment [place] [address] Mary Reyes [facility] [place] [address] 10/26/2023 4:00 PM EDT Office Visit Cardiology at [address] [place] [address] Jaspreet Kinsey MD [facility] [place] [address] 10/28/2023 9:00 AM EDT Office Visit [place] [address] 10/29/2023 10:00 AM EDT Clinical Support [place] [address] 10/29/2023 10:15 AM EDT Procedure visit Gastro[place] [address] 11/01/2023 5:00 PM EDT Office Visit Gastroenterology at [place] [phone] Selene Browning, PhD [facility] [place] [address] 11/22/2023 4:40 PM EDT Office Visit Cardiology at [place] [phone] Porsha Mcdaniels MD [facility] [place] [address] 12/13/2023 10:00 AM EDT Clinical Support Gastroenterology at [place] [phone] [facility] [place] [place] [address] documented as of this encounter Visit Diagnoses Diagnosis Chronic heart failure with preserved ejection fraction documented in this encounter Care Teams Environmental Engineering Manager Relationship Specialty Start Date End Date Polo Pearce PA [address] MOTT [address] [place] [address] PCP - General Internal Medicine 06/09/21 documented as of this encounter
--- OUTSIDE RECORDS SUMMARY | 2023-09-20 14:39 | XMS_ITS | Encounter Summary ---
[place] [address] Care Team Providers Care Reproductive Healthcare Assistant Name Role Phone Tim Rogers DNP Primary Care Provider [phone] Encounter Details Date Type Department Care Team (Late st Contact Info) Description 05/27/2021 Ancillary Procedure [place] [phone] Tim Rogers DNP [address] [facility] [place], [place] [phone] Social History Tobacco Use Types Packs/Day Years [...] AM EDT Tech [place] [address] Jose Cook 10/08/2023 9:30 AM EDT Office Visit [place] [phone] MD [facility] [place] [address] 10/21/2023 10:30 AM EDT Appointment Nuclear Medicine at [address] Mary Reyes, [facility] [place] [address] 10/21/2023 11:30 AM EDT Appointment Nuclear Medicine at [place] [phone] Mary Reyes [facility] [place] [address] 10/21/2023 12:30 PM EDT Appointment [place] [phone] Mary Reyes [facility] [place] [address] 10/21/2023 1:30 PM EDT Appointment [place] [phone] Mary Reyes [facility] [place] [address] 10/21/2023 2:30 PM EDT Appointment [place] [phone] Mary Reyes [facility] [place] [address] 10/26/2023 4:00 PM EDT Office Visit Cardiology at [address] [phone] Jaspreet Kinsey MD [facility] [place] [address] 10/28/2023 9:00 AM EDT Office Visit [place] [address] 10/29/2023 10:00 AM EDT Clinical Support [place] [address] 10/29/2023 10:15 AM EDT Procedure visit [place] [address] 11/01/2023 5:00 PM EDT Office Visit Gastroenterology at [place] [phone] Selene Browning, PhD [facility] [place] [address] 11/22/2023 4:40 PM EDT Office Visit Cardiology at [address] [address] Porsha Mcdaniels MD [facility] [place] [address] 12/13/2023 10:00 AM EDT Clinical Support [place] [phone] Lucero Romero, [facility] [place] [place] [address] documented as of this encounter Procedures Procedure Name Priority Date/Time Associated Diagnosis Comments FILM LIBRARY STORAGE ONLY CT ABDOMEN AND PELVIS Routine 05/27/2021 12:00 AM EDT documented in this encounter Results * Film Library- Storage Only CT Abdomen & Pelvis (05/27/2021 12:00 AM EDT) Narrative [facility] - 05/30/2021 2:30 PM EDT This exam is auto-finalizing. It's purpose is for storage only. Tim Rogers DNP IMG FILM LIBRARY OR DERABLES [place], [place] documented in this encounter Visit Diagnoses Not on filedocumented in this encounter Care Teams Reproductive Healthcare Assistant Relationship Specialty Start Date End Date Tim Rogers DNP PCP - General Family Medicine 08/28/19 06/08/21 documented as of this encounter
--- OUTSIDE RECORDS SUMMARY | 2023-09-20 14:40 | XMS_ITS | Encounter Summary ---
Author Organization [facility] [place] [address] Care Team Providers Care Electrocardiograph Operator Name Role Phone Tim Rogers DNP Primary Care Provider [phone] Encounter Details Date Type Department Care Team (Late st Contact Info) Description 08/02/2020 Telephone [place] [phone] Olive Frazier Social History Tobacco Use Types Packs/Day Years [...] AM EDT Tech [place] [address] Jose Cook 10/08/2023 9:30 AM EDT Office Visit [place] [address] MD [facility] [place] [address] 10/21/2023 10:30 AM EDT Appointment [place] [address] Mary Reyes [facility] [place] [address] 10/21/2023 11:30 AM EDT Appointment Nuclear Medicine at [address]1000 Mary Reyes, [facility] [place] [address] 10/21/2023 12:30 PM EDT Appointment Nuclear Medicine at [place] [phone] Mary Reyes [facility] [place] [address] 10/21/2023 1:30 PM EDT Appointment [place] [address] Mary Reyes [facility] [place] [address] 10/21/2023 2:30 PM EDT Appointment [place] [address] Mary Reyes [facility] [place] [address] 10/26/2023 4:00 PM EDT Office Visit Cardiology at [address] [phone] Jaspreet Knisey MD [facility] [place] [address] 10/28/2023 9:00 AM EDT Office Visit [place] [address] 10/29/2023 10:00 AM EDT Clinical Support [place] [address] 10/29/2023 10:15 AM EDT Procedure [place] [address] 11/01/2023 5:00 PM EDT Office Visit [place] [address] Selene Browning, PhD [facility] [place] [address] 11/22/2023 4:40 PM EDT Office Visit Cardiology at [address] [phone] Porsha Mcdaniels MD [facility] [place] [address] 12/13/2023 10:00 AM EDT Clinical Support [place] [phone] Lucero Romero, [facility] [place] [address] documented as of this encounter Visit Diagnoses Not on filedocumented in this encounter Care Teams Electrocardiograph Operator Relationship Specialty Start Date End Date Tim Rogers DNP PCP - General Family Medicine 08/28/19 06/08/21 documented as of this encounter
--- OUTSIDE RECORDS SUMMARY | 2023-09-20 14:40 | XMS_ITS | Encounter Summary ---
Author Organization [facility] [place] [address] Care Team Providers Care Cna Hha Name Role Phone Tim Rogers DNP Primary Care Provider [phone] Encounter Details Date Type Department Care Team (Late st Contact Info) Description 07/12/2020 Telephone [place] [phone] Jo Ann Colon Social History Tobacco Use Types Packs/Day Years [...] AM EDT Tech [place] [phone] Jose Cook 10/08/2023 9:30 AM EDT Office [place] [address] MD [facility] [place] [address] 10/21/2023 10:30 AM EDT Appointment Nuclear [place] [address] Mary Reyes [facility] [place] [address] 10/21/2023 11:30 AM EDT Appointment Nuclear Medicine at [address] Mary Reyes, [facility] [place] [address] 10/21/2023 12:30 PM EDT Appointment Nuclear Medicine at [place] [phone] Mary Reyes [facility] [place] [address] 10/21/2023 1:30 PM EDT Appointment Nuclear [place] [address] Mary Reyes [facility] [place] [address] 10/21/2023 2:30 PM EDT Appointment Nuclear [place] [address] Mary Reyes [facility] [place] [address] 10/26/2023 4:00 PM EDT Office Visit Cardiology at [address] [phone] Jaspreet Kinsey MD [facility] [place] [address] 10/28/2023 9:00 AM EDT Office [place] [address] 10/29/2023 10:00 AM EDT Clinical [place] [address] 10/29/2023 10:15 AM EDT Procedure [place] [address] 11/01/2023 5:00 PM EDT Office [place] [address] Selene Browning, PhD [facility] [place] [address] 11/22/2023 4:40 PM EDT Office Visit Cardiology at [address] [address] Porsha Mcdaniels MD [facility] [place] [address] 12/13/2023 10:00 AM EDT Clinical [place] [address] Lucero Romero, [facility] [place] [address] documented as of this encounter Visit Diagnoses Not on filedocumented in this encounter Care Teams Cna Hha Relationship Specialty Start Date End Date iTm Rogers DNP PCP - General Family Medicine 08/28/19 06/08/21 documented as of this encounter
--- OUTSIDE RECORDS SUMMARY | 2023-09-20 14:40 | XMS_ITS | Encounter Summary ---
[place] [address] Care Team Providers Care Lowerator Operator Name Role Phone Tim Rogers DNP Primary Care Provider [phone] Reason for Visit * Reason Onset Date Comments Appointment 09/12/2020 Follow up Encounter Details Date Type Department Care Team (Late st Contact Info) Description 09/12/2020 [place] [phone] Renetta Graham RN Appointment (Follow up) Social History Tobacco Use Types Packs/Day Years [...] encounter Miscellaneous Notes * Telephone Encounter - Renetta Graham RN - 09/12/2020 2:51 PM EDT Images from the original note were not included. RN rec'd message from Paul Bess Graham T, MD to Me ?? 09/09/20 10:40 AM John Chan, could you call Indira on Wednesday or and make sure she is received the lab slips. ??Also I wonder if you could schedule her for a telephone follow-up appointment with me at noon on September 26 if that works for her? RN attempted to call patient at work for offer of appointment, and RN was notified that she was currently with patient. RN left pager number for call back. RN later called home number on file, and LMOM requesting call back re: lab slips and offered telehealth appointment on 09/26/2020 @ 1200. Left RN voicemail and pager number. documented in this encounter Plan of Treatment Upcoming Encounters Date Type Department Care Team (Late st Contact Info) Description 10/08/2023 8:30 AM EDT Tech [place] [phone] Jose Cook 10/08/2023 9:30 AM EDT Office [place] [phone] MD [facility] [place] [address] 10/21/2023 10:30 AM EDT Appointment [place] [address] [facility] [place] [address] 10/21/2023 11:30 AM EDT Appointment [place] [address] Mary Reyes APRN [facility] [place] [address] 10/21/2023 12:30 PM EDT Appointment [place] [address] Calvino, Mary M, [facility] [place] [address] 10/21/2023 1:30 PM EDT Appointment [place] [address] [facility] [place] [address] 10/21/2023 2:30 PM EDT Appointment [place] [address] [facility] [place] [address] 10/26/2023 4:00 PM EDT Office Visit Cardiology at [address] [phone] Jaspreet Kinsey MD [facility] [place] [address] 10/28/2023 9:00 AM EDT Office [place] [address] 10/29/2023 10:00 AM EDT Clinical [place] [address] 10/29/2023 10:15 AM EDT Procedure [place] [address] 11/01/2023 5:00 PM EDT Office [place] [phone] Selene Browning, PhD [facility] [place] [address] 11/22/2023 4:40 PM EDT Office Visit Cardiology at [address] [address] Porsha Mcdaniels MD [facility] [place] [address] 12/13/2023 10:00 AM EDT Clinical [place] [address] [facility] [address] [place] [address] documented as of this encounter Visit Diagnoses Not on filedocumented in this encounter Care Teams Lowerator Operator Relationship Specialty Start Date End Date Tim Rogers DNP PCP - General Family Medicine 08/28/19 06/08/21 documented as of this encounter
--- OUTSIDE RECORDS SUMMARY | 2023-09-20 14:40 | XMS_ITS | Encounter Summary ---
[place] [address] Care Team Providers Care Editorial Director Name Role Phone Tim Rogers DNP Primary Care Provider [phone] Encounter Details Date Type Department Care Team (Late st Contact Info) Description 03/23/2021 Ancillary Procedure [place] [phone] Tim Rogers DNP [address] [facility] [place] [place] [id number] Social History Tobacco Use Types Packs/Day Years [...] AM EDT Tech Visit [place] [phone] Jose Cook 10/08/2023 9:30 AM EDT Office [place] [phone] MD [facility] [place] [address] 10/21/2023 10:30 AM EDT Appointment Nuclear Medicine at [address] Mary Reyes, [facility] [place] [address] 10/21/2023 11:30 AM EDT Appointment Nuclear Medicine at [place] [phone] Mary Reyes [facility] [place] [address] 10/21/2023 12:30 PM EDT Appointment [place] [phone] Mary Reyes [facility] [place] [address] 10/21/2023 1:30 PM EDT Appointment [place] [phone] Mary Reyes [facility] [place] [address] 10/21/2023 2:30 PM EDT Appointment [place] [phone] Mary Reyes [facility] [place] [address] 10/26/2023 4:00 PM EDT Office Visit Cardiology at [address] [phone] Jaspreet Kinsey MD [facility] [place] [address] 10/28/2023 9:00 AM EDT Office [place] [address] 10/29/2023 10:00 AM EDT Clinical [place] [address] 10/29/2023 10:15 AM EDT Procedure [place] [address] 11/01/2023 5:00 PM EDT Office Visit Gastroenterology at [place] [phone] Selene Browning, PhD [facility] [place] [address] 11/22/2023 4:40 PM EDT Office Visit Cardiology at [address] [address] Porsha Mcdaniels MD [facility] [place] [address] 12/13/2023 10:00 AM EDT Clinical [place] [phone] Lucero Romero, [facility] [place] [address] documented as of this encounter Procedures Procedure Name Priority Date/Time Associated Diagnosis Comments FILM LIBRARY STORAGE ONLY DX CHEST Routine 03/23/2021 12:00 AM EST documented in this encounter Results * Film Library- Storage Only DX Chest (03/23/2021 12:00 AM EST) Narrative [facility] - 04/03/2021 11:45 AM EST This exam is auto-finalizing. It's purpose is for storage only. Tim Rogers DNP IMG FILM LIBRARY OR DERABLES [place], [place] documented in this encounter Visit Diagnoses Not on filedocumented in this encounter Care Teams Editorial Director Relationship Specialty Start Date End Date Tim Rogers DNP PCP - General Family Medicine 08/28/19 06/08/21 documented as of this encounter
--- OUTSIDE RECORDS SUMMARY | 2023-09-20 14:40 | XMS_ITS | Encounter Summary ---
Author Organization [facility] [place] [address] Care Team Providers Care Lab Nurse Name Role Phone Tim Rogers DNP Primary Care Provider [phone] Reason for Visit * Auth/Cert Specialty Diagnoses / Procedures Referred By Jayant harris Referred To Contact Diagnoses NSTEMI (non-ST elevated myocardial infarction) NSTEMI Procedures EMERGNECY IPI Referral ID Status Reason Start Date Expiration Date Visits Re quested Visits Authorized [id number] 1 1 Encounter Details Date Type Department Care Team (Latest Contact Info) Description 08/29/2019 2:38 PM EDT - 08/31/2019 6:24 PM EDT Hospital Encounter Intermediate [place] [id number] Manish Benitez MD [facility] [place] [address] Non-ST elevation myocardial infarction (NSTEMI); SOB (shortness of breath) Discharge Disposition: Home Social History Tobacco Use [...] Sign Reading Time Taken Comments Blood Pressure 112/67 08/31/2019 4:15 PM EDT Pulse 53 08/30/2019 4:00 PM EDT Temperature 36.7 ??C (98.1 ??F) 08/31/2019 4:15 PM ED T Respiratory Rate 18 08/31/2019 4:15 PM EDT Oxygen Saturation 99% 08/31/2019 4:15 PM EDT Inhaled Oxygen Concentration - - Weight 94.5 kg (208 lb 5.4 oz) 08/31/2019 5:00 A M EDT Height 162.6 cm (5' 4) 08/29/2019 2:47 PM EDT Body Mass Index 35.76 08/29/2019 2:47 PM EDT documented in this encounter Discharge Summaries * Natalia Urbina, MASON TENDER - 08/30/2019 5:18 PM EDT Images from the original note were not included. Discharge Summary Patient Name: Loida Roque Patient Age: 49 y.o. Language: [place] Islander Race: White Ethnicity: Not nor Admit date: 08/29/2019 Discharge date and time: 08/31/2019 4:45 PM Attending Physician: Manish Benitez MD Discharge Physician: Manish Benitez MD Follow-up Recommendations for Providers: 1. Discharge weight 94.5kg. 2. Cardiac catheterization with normal coronaries. No new medications were prescribed. 3. Bedside PFTs completed. FEV1/FVC ratio is 106% of predicted value. 4. Please consider referral to pulmonology to evaluate for causes of dyspnea and cough. Inpatient Provider Contact Information: MD Abeba Chávez PA-C Discharge Diagnoses (Hospital Problems) and Secondary Diagnoses (Chronic Problems): Active Hospital Problems Diagnosis ??? NSTEMI (non-ST elevated myocardial infarction) Resolved Hospital Problems No resolved problems to display. Active Non-Hospital Problems Diagnosis ??? Asthma ??? Rhinitis, nonallergic, chronic Operations/Major Procedures: Operations: Procedure(s): CARDIAC CATHETERIZATION Hemodynamics: Left Heart Pressures Resting: Syst Diast [...] was performed. Conclusions: * Normal coronary arteries Other Major Procedures: Echo: SUMMARY: 1. Technically limited study. 2. The left [...] See remainder of report for additional findings. ?? History of Presentation: This is a 49 yo female with a PMH of exercise induced asthma, depression, endometriosis s/p hysterectomy, insomnia, migraines, obesity and obstructive sleep apnea using CPAP. Otherwise, no known cardiac disease or documented risk factors such as DM, HTN, HLD but with strong family history of CAD inher father although unspecified other than stents and pacemaker placement. She presents with a 2 month h/o progressive dyspnea on exertion with chest tightness that resolves with rest. ?? She reports known post nasal drip, sinus infections, bronchitis, PNA. Patient with congested cough for at least several weeks. Decided due to congested cough that she should be evaluated in the ED. When interviewed, she identified a long h/o RAVI. ~3 weeks ago, she was up all night with severe chestpain and shortness of breath. She did not seek evaluation. Thought this was asthma related. Still symptomatic in the morning. She continued to suffer with chest pain. She started nebulizing and thought that it helped to some degree. Chest discomfort described as someone sitting on chest. She is nowlimiting activity as a result of symptoms of both chest discomfort and SOB that have persisted since that episode. Also notably fatigued. ?? In the ED, her EKG was abnormal with diffuse STTW abnormalities but unchanged from prior EKG in 2006. Troponin I positive at 0.25 (ULN 0.06). Vitals stable and patient asymptomatic at rest. DDimer positive at [address]-PE protocol completed, see below. No PE or acute aortic pathology. ?? COVID 19 negative by nasopharyngeal swab. ?? OSH Course: VS - T 36.6, 67 bpm, 136/65, resps 18, 97% on RA WBC 9.02 H/H 14.4/43.7 Plts 248 INR 1.1 D dimer 1037 Na 138 K 3.9 Bun/Cr 14/1.00 Mag 2.1 Troponin I 0.25->0.26->0.26 ProBNP 2529 AST/ALT COVID 19 negative via nasopharyngeal swab ?? EKG - SR, ST depression diffuse (seen on prior EKGs) CT Chest - No PE, question mild ground glass non-specific opacities vs mosaic attenuation of lower lobes CXR - No evidence of acute process ?? Meds Administered: Aspirin 324/81 Plavix 300/75 Cymbalta 60 mg qhs Gabapentin 300 mg qhs Heparin gtt Pantoprazole 40 mg IVP Topamax 100 mg qhs Topamax 50 mg daily Hospital Course: #NSTEMI Loida Roque is a 49 y.o. female with a 2 month h/o progressive dyspnea on exertion with chest tightness that resolves with rest, in addition, an episode of severe chest pain overnight ~3 weeksago concerning for missed NV. ??In the ED, her EKG was abnormal with diffuse STTW abnormalities butunchanged from prior EKG in 2006.?Troponin??I??positive at 0.25 (ULN 0.06). ??Vitals stable and p atient asymptomatic at rest. ??DDimer positive at 1037 thus??CT-PE protocol??completed. ??No PE or acute aortic pathology. ??She as transferred for further work up of NSTEMI. She was admitted to 4E. Telemetry attached showing sinus rhythm. Heparin drip infusing. Transfer records reviewed. Troponin n egative x3 sets. An echocardiogram was performed showing a preserved EF, no wall motion abnormalities and no hemodynamically significant valve disease. Decision made to proceed with coronary angiography. This revealed normal coronary arteries. Aspirin, Plavix, heparin and statin discontinued. With her marked shortness of breath, we decided to obtain bedside PFTs. FEV1/FVC ratio is 106% of predicted value. Etiology of dyspnea and cough remain unclear. Recommend PCP consider alternative etiologies of patient's dyspnea and cough and can even consider a referral to outpatient pulmonology. Patientambulated the unit without difficulty and was discharged home on 08/31/19 in stable condition. ?? Functional and Cognitive Status: A+Ox3, ambulates independently Important Studies and Lab Data: Labs: Lab Results Component Value Date WBC 6.0 08/31/2019 HGB 15.7 (H) 08/31/2019 HCT 47.0 (H) 08/31/2019 PLATELET 255 08/31/2019 Recent Labs 08/29/19 1510 INR 1.2 Lab Results Component Value Date NA 136 08/31/2019 K 4.2 08/31/2019 CL 105 08/31/2019 CO2 18 (L) 08/31/2019 BUN 21 (H) 08/31/2019 CREATININE 0.91 08/31/2019 Recent Labs 08/29/19 1510 TSH 1.87 Recent Labs 08/30/19 0253 HA1C 5.4 Recent Labs 08/30/19 0253 08/29/19 2030 08/29/19 1510 CK 82 94 96 TROPONINT <0.01 <0.01 <0.01 Lab Results Component Value Date CHLPL 220 08/30/2019 HDL 34 08/30/2019 CHOLHDL 6.5 08/30/2019 TRIG 203 08/30/2019 LDLDIRECT 165 08/30/2019 Pending Studies and Lab Data: None Discharge Conditions/Prognosis: A+Ox3, ambulates independently Discharge to: Home Updated Allergies/ADRs: Allergies Allergen Reactions ??? Clobetasol Rash Immunizations Given this Hospitalization: There is no immunization history on file for this patient. Discharge Medications: Your Medications Continued medications, unchanged Dose Details albuteroL 90 mcg/actuation Hfaa Inhale 2 puffs into the lungs every 4 hours as needed. Use with spacer 2 puff Refills: [address] 60 mg Cpdr Commonly known as: Cymbalta Take 60 mg by mouth daily. 60 mg Refills: 0 fluticasone propionate 50 mcg/actuation Spsn Commonly known as: FLONASE 1 spray by Each Nare route daily. 1 spray Refills: 0 gabapentin 300 mg Cap Commonly known as: Neurontin Take 300 mg by mouth 2 times daily. 300 mg Refills: 0 hydrOXYzine 25 mg Tab Commonly known as: Atarax Take 25 mg by mouth every 6 hours as needed (Headache). 25 mg Refills: 0 SUMAtriptan 100 mg Tab Commonly [...] mg at bedtime 50 mg Refills: 0 Smoking Status at Discharge: Social History Tobacco Use Smoking Status Never Smoker Smokeless Tobacco Never Used Instructions Given to Patient at Discharge: There are no outpatient Patient Instructions on file for this admission. General Instructions Call your doctor if: Chest pain, dyspnea, pain or swelling in legs occurs. If you have non-emergent questions, prior to your follow-up visit please call one of the metal tank builder on Wednesday-Wednesday between the hours of 8A- 5PM. Cardiology Clinic number @ [phone] If off hours contact the cardiac fellow on- call. Hospital President Celebrity Acquistion can help you. Hospital phone number [phone] Return to work: In 1 week Drivin hours post catheterization Follow up Appointments: Doctor Where Phone # Date Time Bouchra Frias APRN [address] / [facility] [id number] 09/13/19 8:30 Discharge References/Attachments None Discussed with MD Natalia Lira APRN Pager [phone] 08/31/2019 documented in this encounter Discharge Instructions * Discharge Instructions* Natalia Urbina APRN - 08/31/2019 3:54 PM EDT Call your doctor if: Chest pain, dyspnea, pain or swelling in legs occurs. If you have non-emergent questions, prior to your follow-up visit please call one of the metal tank builder on Wednesday-Wednesday between the hours of 8A- 5PM. Cardiology Clinic number @ [phone] If off hours contact the cardiac fellow on- call. Hospital President Celebrity Acquistion can help you. Hospital phone number [phone] Return to work: In 1 week Drivin hours post catheterization Follow up Appointments: Doctor Where Phone # Date Time Bouchra Frias APRN [address] / [facility] [id number] 09/13/19 8:30 * Attachments The following attachments cannot be sent through Care Everywhere. * Cardiac Catheterization: Left ([place]) documented in this encounter Medications at Time of Discharge Medication Sig Dispensed Refills Start Date End Date fluticasone propionate (FLONASE) 50 mcg/actuation [place], Suspension 1 spray by Each Nare route [...] 4 hours as needed. Use with spacer hydrOXYzine (Atarax) 25 mg Tablet Take 25 mg by mouth every 6 hours as needed (Headache). 07/23/2021 SUMAtriptan (Imitrex) 100 mg Tablet Take 100 mg by mouth as needed for Migraine. Initial dose: 25 mg, 50 mg, or 100 mg (take with fluids). May repeat dose after 2 hours. Max daily dose: 200 mg 07/23/2021 documented as of this encounter Progress Notes * Tadeo Roman RCP - 08/31/2019 6:03 PM EDT Respiratory Therapy Bedside Spirometry Patient Loida Roque 49 y.o. 1970 [id number] Spirometry Spirometry performed successfully. Waiting for read by Pulmonology. Position: Patient position: Sitting up in bed. Effort: Patient Effort: Good Nose clips: Yes Comments Patient states it is hard to exhale. * Maia Vásquez RN - 08/31/2019 5:44 PM EDT Pt went through pulmonary test this afternoon. Pt ambulated in cheney with stand- by assist without any breathing or mobility difficulty. NSR on tele, VSS. Pt reviewed post cath restrictions and pulmonary follow-up appointment. Pt verbalized a good understanding. Pt's daughter at the [facility]. Pt wheeled out of the unit with SENIOR TRAINING SPECIALIST. * Leonardo Jolly - 08/31/2019 12:25 PM EDT Nutrition Services Note - Low Nutrition Acuity Loida Roque is a 49 y.o. female Reason for intervention: education [facility] + NA Nutrition Plan: Patient states that she follows a low sodium restriction a home. Educational Material Guidelines for a Heart Healthy Lifestyle provided. Continue current diet. Educational Material provided. Monitor weight. Encourage good oral intake. Support and encouragement provided. Nutrition will continue to monitor and follow up with patient as needed. Active Orders Diet Daily Healthy Menu Choices/Cardiac diet ([facility]-Diet) Frequency: Effective Now Number of Occurrences: Until Specified Admit Weight: 94.3 kg Estimated body mass index is 35.76 kg/m?? as calculated from the following: Height as of this encounter: 162.6 cm (5' 4). Weight as of this encounter: 94.5 kg (208 lb 5.4 oz). Wt Readings from Last 5 Encounters: 08/31/19 94.5 kg (208 lb 5.4 oz) 06/26/10 83.9 kg (185 lb) Weight loss: none Appetite: Excellent (75%-100%) Food allergies:no known food allergies Chewing/Swallowing difficulty: none Nausea/Vomiting: no nausea and no vomiting Last Bowel Movement: 08/30/19 Patient education / questions: all nutrition related questions answered at this time Nutrition services to follow weekly through hospital course unless consulted in the interim. Leonardo Marina Jolly Pager: [phone] * Manish Benitez MD - 08/31/2019 9:33 AM EDT Images from the original note were not included. Inpatient Cardiology Progress Note Patient Name: Loida Roque Service: CANINE DEPUTY / PA Responsible Attending: Manish Benitez MD Reason for continued hospitalization: Evaluation and management of NSTEMI S/p cardiac catherization Bedside PFTs Active Problems: Active Hospital Problems Diagnosis ??? NSTEMI (non-ST elevated myocardial infarction) Resolved Hospital Problems No resolved problems to display. Interval History: Troponin negative x3 sets at . Echo with EF 62% and no WMAs. LHC with normal cors, LVEDP 15. No new complaints this morning. Review of Systems: Review of Systems Constitutional: Negative. Respiratory: Positive for cough. Negative for shortness of breath. Cardiovascular: Negative for chest pain, palpitations and leg swelling. Neurological: Negative for syncope and light-headedness. All other systems reviewed and are negative. Telemetry: HR: 50-60s, SR Meds: Scheduled Meds: ??? heparin (Porcine) 5,000 Units Subcutaneous 2 times per day ??? DULoxetine DR 60 mg Oral Nightly ??? gabapentin 300 mg Oral BID ??? topiramate 50 mg Oral Daily ??? topiramate 100 mg Oral Nightly Continuous Infusions: PRN Meds:nitroGLYcerin, acetaminophen, zolpidem Physical Exam: Vital Signs: Last value Range last 12 hrs Temperature Temp: 36.8 ??C (98.2 ??F) Temp: [36.8 ??C (98.2 ??F)] Heart Rate Heart Rate: 53 Heart Rate: -- Blood Pressure BP: 125/72 BP: (111-125)/(57-72) Respiratory Rate Resp: 18 Resp: [17-18] SpO2 SpO2: 100 % SpO2: [98 %-100 %] Patient Vitals for the past 168 hrs: Weight 08/31/19 0500 94.5 kg (208 lb 5.4 oz) 08/30/19 0644 96.1 kg (211 lb 13.8 oz) 08/29/19 1447 94.3 kg (207 lb 14.3 oz) Physical Exam Constitutional: She is oriented to person, place, and time. She appears well- developed and well-nourished. HENT: Head: Normocephalic and atraumatic. Cardiovascular: Normal rate and regular rhythm. Pulmonary/Chest: Effort normal and breath sounds normal. Musculoskeletal: General: No edema. Neurological: She is alert and oriented to person, place, and time. Skin: Skin is warm and dry. Nursing note and vitals reviewed. Lab Comments: Recent Labs 08/31/19 04108/30/19 02508/29/192029 WBC 6.0 7.4 6.3 HGB 15.7* 14.8 15.3 HCT 47.0* 44.8 46.4* PLATELET 255 272 267 Recent Labs 08/29/19 1510 INR 1.2 Recent Labs 08/31/19 0412 08/30/19 0253 08/29/19 1510 NA 136 139 138 K 4.2 3.8 4.2 CL 105 103 105 CO2 18* 19* 19* BUN 21* 18 15 CREATININE 0.91 1.09 0.84 Recent Labs 08/29/19 1510 AST 25 ALT 19 ALKPHOS 49 BILITOT 0.7 BILIDIR 0.1 Recent Labs 08/31/19 0412 08/30/19 0253 08/29/19 1510 CALCIUM 9.4 9.0 9.2 MAGNESIUM 0.92 0.90 -- Recent Labs 08/30/19 0253 08/29/19 2030 08/29/19 1510 CK 82 94 96 TROPONINT <0.01 <0.01 <0.01 Pertinent Radiographic/Diagnostic Results: Echo 08/29 SUMMARY: 1. Technically limited study. 2. The left [...] See remainder of report for additional findings. [facility] 08/29 Preliminary findings: Right dominant Normal coronary arteries LVEDP 15 Assessment: Loida Roque is a 49 y.o. female with a PMH of exercise induced asthma, depression, endometriosis s/p hysterectomy, insomnia, migraines, obesity and obstructive sleep apnea using CPAP. ??Otherwise, no known cardiac disease or documented risk factors such as DM, HTN, HLD but with strong familyhistory of CAD in her father although unspecified other than stents and pacemaker placement. ??She presents with a 2 month h/o progressive dyspnea on exertion with chest tightness that resolves with rest, in addition, an episode of severe chest pain overnight ~3 weeks ago concerning for missed NV. ??In the ED, her EKG was abnormal with diffuse STTW abnormalities but unchanged from prior EKG in 200 7.?Troponin??I??positive at 0.25 (ULN 0.06). ??Vitals stable and patient asymptomatic at rest. ??DDimer positive at 1037 thus??CT-PE protocol??completed. ??No PE or acute aortic pathology. ??She is transferred for further work up of NSTEMI. ??EF 62% and no wall motions seen on echo. [facility] with normal cors and LVEDP 15. Will obtain bedside PFTs today to evaluate pulmonary function and likely refer to pulmonology as an outpatient. ?? Plan: #NSTEMI Admitted to cardiology Troponin??negative x3 sets at ProBNP 1242; Admit weight 207 lbs; Lasix 40 mg IVP x 1 Aspirin 324/81mg Discontinued plavix and heparin drip No beta tiffanie due to baseline bradycardia Atorvastatin 80 mg nightly (TC 220, HDL 34, TG 203, direct LDL 165) Echo with EF 62% and no [facility] with normal cors A1C 5.4% Bedside PFTs today ?? FULL CODE Discussed with Manish Benitez MD Natalia Urbina, ROM Pager [phone] 08/31/2019 Cardiology Attending Note I interviewed and examined the patient during comprehensive bedside rounds. I concur with the summary of interval events, active hospital-focused problem list and plan of care as described in the note below. I personally reviewed the medications, laboratory results, treatment decisions and updated the patient. Manish Benitez MD, FACP, FAC Section of Cardiovascular Medicine [facility] Air Quality Specialistcurb builder [facility] This patient meets or has met medical criteria to require an inpatient level of care, i.e. a minimum of two midnights in the hospital with multiple complex problems. * Lorena Garcia RCP - 08/31/2019 5:40 AM EDT Respiratory Therapy NIV Note NIV Settings: NIV Mode: CPAP PEEP/CPAP (cm H2O): 6 cm H20 NIV Measurements: Resp: 18 Mve: 8.1 Leak (L/min): 18 L/min Vte: 380 SpO2: 98 % Skin Assessment: WDL Assessment: Pt is compliant with CPAP. Plan: Continue to follow. LORENA GARCIA RCP * Fabienne Camacho RCP - 08/30/2019 6:08 PM EDT Attempted bedside spirometry-pt unable to perform due to reactive cough. Plan to re-evaluate when patient is able to perform test. * Manish Benitez MD - 08/30/2019 9:23 AM EDT Images from the original note were not included. Inpatient Cardiology Progress Note Patient Name: Loida Roque Service: CANINE DEPUTY / PA Responsible Attending: Manish Benitez MD Reason for continued hospitalization: Evaluation and management of NSTEMI Awaiting cardiac catherization Active Problems: Active Hospital Problems Diagnosis ??? NSTEMI (non-ST elevated myocardial infarction) Resolved Hospital Problems No resolved problems to display. Interval History: Patient resting comfortably this morning. CPAP used overnight. Troponin negative x3 sets at . Plan for echocardiogram and likely R/LHC later today. Review of Systems: Review of Systems Constitutional: Positive for fatigue. Respiratory: Negative for shortness of breath. Cardiovascular: Negative for chest pain, palpitations and leg swelling. All other systems reviewed and are negative. Telemetry: HR: Heart Rate: [51-64] sinus rhythm, sinus bradycardia and 4 beat atrial burst Meds: Scheduled Meds: ??? atorvastatin 80 mg Oral QPM ??? aspirin EC 81 mg Oral Daily ??? clopidogreL 75 mg Oral Daily ??? DULoxetine DR 60 mg Oral Nightly ??? gabapentin 300 mg Oral BID ??? topiramate 50 mg Oral Daily ??? topiramate 100 mg Oral Nightly Continuous Infusions: ??? heparin 900 Units/hr (08/29/19 1445) PRN Meds:heparin (porcine) AND heparin, nitroGLYcerin, acetaminophen, zolpidem Physical Exam: Vital Signs: Last value Range last 24 hrs Temperature Temp: 36.5 ??C (97.7 ??F) Temp: [36.5 ??C (97.7 ??F)-36.8 ??C (98.2 ??F)] Heart Rate Heart Rate: 51 Heart Rate: [51-67] Blood Pressure BP: 98/59 BP: (98-131)/(56-78) Respiratory Rate Resp: 18 Resp: [18-24] SpO2 SpO2: 99 % SpO2: [96 %-100 %] Patient Vitals for the past 168 hrs: Weight 08/30/19 0644 96.1 kg (211 lb 13.8 oz) 08/29/19 1447 94.3 kg (207 lb 14.3 oz) Intake/Output Summary (Last 24 hours) at 08/30/2019 0950 Last data filed at 08/30/2019 0900 Gross per 24 hour Intake 660.5 ml Output 1250 ml Net -589.5 ml Physical Exam Constitutional: She is oriented to person, place, and time. She appears well- developed and well-nourished. No distress. HENT: Head: Normocephalic and atraumatic. Neck: Normal range of motion. Neck supple. No JVD present. Cardiovascular: Normal rate, regular rhythm and normal heart sounds. No murmur heard. Pulmonary/Chest: Effort normal and breath sounds normal. She has no rales. Abdominal: Soft. Bowel sounds are normal. She exhibits no distension. There is no abdominal tenderness. Musculoskeletal: Normal range of motion. General: No edema. Neurological: She is alert and oriented to person, place, and time. Skin: Skin is warm and dry. She is not diaphoretic. Psychiatric: She has a normal mood and affect. Her behavior is normal. Lab Comments: Recent Labs 08/30/1925208/29/19202908/29/19 1510 WBC 7.4 6.3 6.5 HGB 14.8 15.3 14.1 HCT 44.8 46.4* 43.8 PLATELET 272 267 235 Recent Labs 08/29/19 1510 INR 1.2 Recent Labs 08/30/1925208/29/19 1510 NA 139 138 K 3.8 4.2 CL 103 105 CO2 19* 19* BUN 18 15 CREATININE 1.09 0.84 Recent Labs 08/29/19 1510 AST 25 ALT 19 ALKPHOS 49 BILITOT 0.7 BILIDIR 0.1 Recent Labs 08/30/19 0253 08/29/19 1510 CALCIUM 9.0 9.2 MAGNESIUM 0.90 -- Recent Labs 08/30/19 02508/29/19202908/29/19 1510 CK 82 94 96 TROPONINT <0.01 <0.01 <0.01 Pertinent Radiographic/Diagnostic Results: No new tests Assessment: Loida Roque is a 49 y.o. female with a PMH of exercise induced asthma, depression, endometriosis s/p hysterectomy, insomnia, migraines, obesity and obstructive sleep apnea using CPAP. Otherwise, no known cardiac disease or documented risk factors such as DM, HTN, HLD but with strong family history of CAD in her father although unspecified other than stents and pacemaker placement. She presents with a 2 month h/o progressive dyspnea on exertion with chest tightness that resolves with rest, in addition, an episode of severe chest pain overnight ~3 weeks ago concerning for missed NV. In the ED, her EKG was abnormal with diffuse STTW abnormalities but unchanged from prior EKGin 2006. Troponin I positive at 0.25 (ULN 0.06). Vitals stable and patient asymptomatic at rest. DDimer positive at [address]-PE protocol completed. No PE or acute aortic pathology. She is transferred for further work up of NSTEMI. Plan Echo and coronary angiography. Plan: #NSTEMI Admitted to cardiology Troponin negative x3 sets at ProBNP 1242; Admit weight 207 lbs; Lasix 40 mg IVP ; net negative 450 ml; await [facility] Aspirin 324/81mg Plavix 300/75 mg Heparin drip Hold on beta tiffanie therapy until Echo imaging obtained Atorvastatin 80 mg nightly (TC 220, HDL 34, TG 203, direct LDL 165) SLNTG prn Echo imaging to start and then likely R and L HC A1C 5.4 ?? FULL CODE This patient was discussed with Manish Benitez MD. Abeba Conway PA-C 08/30/2019 Cardiology Attending Note I interviewed and examined the patient during comprehensive bedside rounds. I concur with the summary of interval events, active hospital-focused problem list and plan of care as described in the note below. I personally reviewed the medications, laboratory results, treatment decisions and updated the patient. Manish Benitez MD, FACP, FAC Section of Cardiovascular Medicine [facility] Air Quality Specialistcurb builder [facility] at [facility] This patient meets or has met medical criteria to require an inpatient level of care, i.e. a minimum of two midnights in the hospital with multiple complex problems. * Polo Pantoja RCP - 08/30/2019 3:54 AM EDT 08/30/19 0315 Non Invasive Ventilation Data NIV Device V30 Respironics NIV Mode CPAP (V30) NIV Settings PEEP/CPAP (cm H2O) 6 cm H20 C-Flex 2 NIV Humidifier Temp 2 NIV Measurements Resp 20 Mve 9.8 Vte 490 Leak (L/min) 31 L/min NIV Interface NIV Interface Options Face Mask Mask Size (ped / adult) Medium NIV Skin Assessment NIV Skin Assessment WDL WDL Nares Assessment WDL WDL PT placed on nocturnal NIV this shift on the above settings. She rested comfortably overnight without complications or noted events. ??Will continue to follow and encourage therapy. ?? documented in this encounter H&P Notes * Manish Benitez MD - 08/29/2019 2:41 PM EDT Images from the original note were not included. Cardiology Admission H&P Patient Name: Loida Roque Date of : 1970 Age: 49 y.o. Hospital Admit Date: 08/29/2019 Inpatient Attending: Manish Benitez MD PCP: Dustin Nino MD (Inactive) Presenting Diagnosis/Chief Complaint: RAVI, CP, NSTEMI Active Problem List: Active Hospital Problems Diagnosis ??? NSTEMI (non-ST elevated myocardial infarction) Resolved Hospital Problems No resolved problems to display. History of Present Illness: HPI This is a 49 yo female with a PMH of exercise induced asthma, depression, endometriosis s/p hysterectomy, insomnia, migraines, obesity and obstructive sleep apnea using CPAP. Otherwise, no known cardiac disease or documented risk factors such as DM, HTN, HLD but with strong family history of CAD in her father although unspecified other than stents and pacemaker placement. She presents with a 2 month h/o progressive dyspnea on exertion with chest tightness that resolves with rest. She reports known post nasal drip, sinus infections, bronchitis, PNA. Patient with congested cough for at least several weeks. Decided due to congested cough that she should be evaluated in the ED. When interviewed, she identified a long h/o RAVI. ~3 weeks ago, she was up all night with severe chestpain and shortness of breath. She did not seek evaluation. Thought this was asthma related. Still symptomatic in the morning. She continued to suffer with chest pain. She started nebulizing and thought that it helped to some degree. Chest discomfort described as someone sitting on chest. She is nowlimiting activity as a result of symptoms of both chest discomfort and SOB that have persisted since that episode. Also notably fatigued. In the ED, her EKG was abnormal with diffuse STTW abnormalities but unchanged from prior EKG in 2006. Troponin I positive at 0.25 (ULN 0.06). Vitals stable and patient asymptomatic at rest. DDimer positive at [address]-PE protocol completed, see below. No PE or acute aortic pathology. COVID 19 negative by nasopharyngeal swab. OSH Course: VS - T 36.6, 67 bpm, 136/65, resps 18, 97% on RA WBC 9.02 H/H 14.4/43.7 Plts 248 INR 1.1 D dimer 1037 Na 138 K 3.9 Bun/Cr 14/1.00 Mag 2.1 Troponin I 0.25->0.26->0.26 ProBNP 2529 AST/ALT 25/24 COVID 19 negative via nasopharyngeal swab EKG - SR, ST depression diffuse (seen on prior EKGs) CT Chest - No PE, question mild ground glass non-specific opacities vs mosaic attenuation of lower lobes CXR - No evidence of acute process Meds Administered: Aspirin 324/81 Plavix 300/75 Cymbalta 60 mg qhs Gabapentin 300 mg qhs Heparin gtt Pantoprazole 40 mg IVP Topamax 100 mg qhs Topamax 50 mg daily Past Medical History: Past Medical History: Diagnosis [...] file Occupational History ??? Not on file Social Needs ??? Financial resource strain: Not on file ??? Food insecurity Worry: Not on file Inability: Not on file ??? Transportation needs Medical: Not on file Non-medical: Not on file Tobacco Use ??? Smoking status: Never Smoker ??? Smokeless tobacco: Never Used Substance and Sexual Activity ??? Alcohol use: Never Frequency: Never ??? Drug use: Never ??? Sexual activity: Not on file Lifestyle ??? Physical activity Days per week: Not on file Minutes per session: Not on file ??? Stress: Not on file Relationships ??? Social connections Talks on phone: Not on file Gets together: Not on file Attends congregation service: Not on file Active member of club or organization: Not on file Attends meetings of clubs or organizations: Not on file Relationship status: Not on file ??? Intimate partner violence Fear of current or ex partner: Not on file Emotionally abused: Not on file Physically abused: Not on file Forced sexual activity: Not on file Other Topics Concern ??? 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 Negative for diaphoresis. HENT: Positive for congestion. Respiratory: Positive for cough. Cardiovascular: Positive for chest pain and palpitations (with exertion). Negative for leg swelling. Gastrointestinal: Negative for abdominal distention and abdominal pain. Neurological: Negative for dizziness, syncope and light-headedness. All other systems reviewed and are negative. Medications: Medications Prior to Admission Medication Sig Dispense Refill Last Dose ??? fluticasone propionate (FLONASE) 50 mcg/actuation [place], Suspension 1 spray by Each Nare route [...] capsule Take 60 mg by mouth daily. Taking ??? albuterol (PROVENTIL HFA;VENTOLIN HFA) 90 mcg/Actuation inhaler Inhale 2 puffs into the lungs every 4 hours as needed. Use with spacer Allergies: Allergies Allergen Reactions ??? Clobetasol Rash PHYSICAL EXAM: Last set of vital signs: BP 131/78 (BP Location (NBP): Right arm, Patient Position: Sitting) Pulse 58 Temp 36.8 ??C (98.2 ??F) (Oral) Resp 19 Ht 162.6 cm (5' 4) Wt 94.3 kg (207 lb 14.3 oz) SpO2 100% BMI 35.68 kg/m?? Physical Exam Constitutional: Appearance: Normal appearance. HENT: Head: Normocephalic and atraumatic. Cardiovascular: Rate and Rhythm: Normal rate and regular rhythm. Heart sounds: No murmur. Pulmonary: Effort: Pulmonary effort is normal. Breath sounds: Rhonchi (scattered mid to upper lung field) present. No rales. Comments: Congested cough Abdominal: General: Abdomen is flat. Bowel sounds are normal. Palpations: Abdomen is soft. Musculoskeletal: Normal range of motion. Right lower leg: No edema. Left lower leg: No edema. Skin: General: Skin is warm and dry. Neurological: General: No focal deficit present. Mental Status: She is alert. Psychiatric: Mood and Affect: Mood normal. Behavior: Behavior normal. Diagnostics: I have independently visualized the following studies: ECG: NSR at 67 bpm, ST-T abnormality, non-specific and unchanged LABS: Recent Results (from the past 24 hour(s)) Basic Metabolic Panel (non-fasting) Result Value Ref Range Glucose Lvl 83 65 - 199 mg/dL BUN 15 8 - 18 mg/dL Creatinine 0.84 0.70 - 1.20 mg/dL Sodium 138 135 - 145 mmol/L Potassium 4.2 3.5 - 5.0 mmol/L Chloride 105 98 - 107 mmol/L CO2 19 (L) 22 - 31 mmol/L Anion Gap 14 5 - 15 mmol/L Calcium 9.2 8.5 - 10.5 mg/dL eGFR 81 >=60 mL/min/1.73 m?? eGFR 94 >=60 mL/min/1.73 m?? Prothrombin Time Result Value Ref Range PT 13.3 (H) 9.4 - 12.5 sec INR 1.2 APTT Result Value Ref Range PTT 132 (CRIT) 25 - 37 sec Troponin Result Value Ref Range Troponin-T <0.01 0.00 - 0.00 ng/mL CK Result Value Ref Range CK, Total 96 0 - 160 unit/L pro-Brain Natriuretic Peptide Result Value Ref Range ProBNP 1,242 (H) <=125 pg/mL TSH Result Value Ref Range TSH 1.87 0.27 - 4.20 mcIU/mL Hepatic Function Panel Result Value Ref Range Total Protein 7.1 6.1 - 8.0 gm/dL Albumin 4.0 3.2 - 5.2 gm/dL AST 25 0 - 30 unit/L ALT 19 0 - 30 unit/L Alk Phos 49 35 - 105 unit/L Total Bilirubin 0.7 0.2 - 1.3 mg/dL Bili, Direct 0.1 0.0 - 0.3 mg/dL Hemogram Result Value Ref Range WBC 6.5 4.0 - 9.5 x10(3)/mcL RBC 4.69 4.00 - 5.21 x10(6)/mcL Hemoglobin 14.1 11.7 - 15.5 gm/dL Hematocrit 43.8 35.7 - 45.8 % MCV 93.4 82.6 - 94.4 fL MCH 30.1 27.1 - 32.0 pg MCHC 32.2 31.7 - 35.0 gm/dL Platelets 235 145 - 357 x10(3)/mcL RDWSD 47.2 (H) 37.0 - 46.0 fL RDWCV 13.7 11.5 - 14.1 % MPV 11.5 7.6 - 12.9 fL nRBC % Auto 0.0 % nRBC Abs Auto 0.000 0.000 - 0.000 x10(3)/mcL Differential, Automated Result Value Ref Range Neutrophils % 58.3 % Neutr Abs (ANC) 3.79 1.70 - 6.10 x10(3)/mcL Lymphocytes % 22.7 % Lymphocytes Abs 1.5 0.9 - 3.2 x10(3)/mcL Monocytes % 10.3 % Monocyte Abs 0.7 0.3 - 0.9 x10(3)/mcL Eosinophils % 7.8 % Eosinophils Abs 0.5 (H) 0.0 - 0.4 x10(3)/mcL Basophils % 0.6 % Basophils Abs 0.0 0.0 - 0.1 x10(3)/mcL Immature Gran % 0.30 % Shonda Gran Abs 0.02 0.00 - 0.04 x10(3)/mcL ASSESSMENT: This is a 49 yo female with a PMH of exercise induced asthma, depression, endometriosiss/p hysterectomy, insomnia, migraines, obesity and obstructive sleep apnea using CPAP. Otherwise, no known cardiac disease or documented risk factors such as DM, HTN, HLD but with strong family history of CAD in her father although unspecified other than stents and pacemaker placement. She presentswith a 2 month h/o progressive dyspnea on exertion with chest tightness that resolves with rest, inaddition, an episode of severe chest pain overnight ~3 weeks ago concerning for missed NV. In the ED, her EKG was abnormal with diffuse STTW abnormalities but unchanged from prior EKG in 2006. Troponin I positive at 0.25 (ULN 0.06). Vitals stable and patient asymptomatic at rest. DDimer positive [id number] thus CT-PE protocol completed. No PE or acute aortic pathology. She is transferred for furtherwork up of NSTEMI. Plan Echo and coronary angiography. TREATMENT PLAN: #NSTEMI Admit to cardiology Trend troponin - 1st negative at [facility] ProBNP 1242; Admit weight 207 lbs; Lasix 40 mg IVP x1 Aspirin 324/81mg Plavix 300/75 mg Heparin drip Hold on beta tiffanie therapy until Echo imaging obtained Start atorvastatin 80 mg nightly SLNTG prn Echo imaging to start and then likely R and L HC Check am lipids and A1C FULL CODE This patient was discussed with Manish Benitez MD. Abeba Conway PA-C 08/29/2019 Cardiology Attending Note I interviewed and examined the patient during comprehensive bedside rounds. I concur with the summary of interval events, active hospital-focused problem list and plan of care as described in the note below. I personally reviewed the medications, laboratory results, treatment decisions and updated the patient. Manish Benitez MD, FACP, FACC Section of Cardiovascular Medicine [facility] Air Quality Specialistcurb builder [facility] at [facility] This patient meets or has met medical criteria to require an inpatient level of care, i.e. a minimum of two midnights in the hospital with multiple complex problems. documented in this encounter Procedure Notes * Zoe Morocho MD - 08/31/2019 6:24 PM EDTAssociated Order(s): BEDSIDE SPIROMETRY W/O BRONCHODIALATOR Pulmonary Function Test Interpretation FEV1 is normal. FVC is reduced. The FEV1/FVC ratio is normal. 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%) Zoe Morocho MD documented in this encounter Miscellaneous Notes * Plan of Care - Gauri Arroyo RN - 08/30/2019 11:52 PM EDT OUTCOME EVALUATION NOTE: OUTCOME SUMMARY: Patient is alert and oriented x 4. No c/o pain, denies SOB/chest pressure, tele insinus morgan w/ rates 50-60s otherwise VSS on CPAP overnight. PIV removed d/t symptomatic site. Independent in the room. No acute events, will continue to monitor and notify MD of any changes. PLAN MOVING FORWARD: Pulm consult Tele D/c planning INDIVIDUALIZED FALL PREVENTION INTERVENTIONS: Patient-specific fall risk factors per assessment: [current deficits]: Hospital environment Assistance [level of assistance required for transfers and ambulation]: Independent Supervision [direct monitoring required during toileting and ADLs]: Independent Surveillance [continuous indirect monitoring]: Tele, room near unit station, call ghosh within reach, purposeful rounding Patient-specific fall prevention interventions for sensory deficits provided, if applicable: n/a CPG GOAL OUTCOME EVALUATION: Ongoing * Plan of Care - Mark Nick RN - 08/30/2019 5:32 PM EDT Problem: Patient Care Overview Goal: Plan of Care Review Outcome: Ongoing (Interventions Implemented as Appropriate) 08/30/19 0539 08/30/19 0809 Coping/Psychosocial Plan Of Care Reviewed With -- patient Plan of Care Review Progress progress towards functional goals is fair -- OUTCOME EVALUATION NOTE: OUTCOME SUMMARY: Pt A&Ox4. Vitals as documented. See chart for tele report. Pt denies SOB or CP. Pt had good day, went to cath. Will continue to monitor. PLAN MOVING FORWARD: D/C as necessary INDIVIDUALIZED FALL PREVENTION INTERVENTIONS: Patient-specific fall risk factors per assessment: [current deficits]: Hospital environment, tele Assistance [level of assistance required for transfers and ambulation]: Ind Supervision [direct monitoring required during toileting and ADLs]: Ind Surveillance [continuous indirect monitoring]: Purposeful hourly rounding, call ghosh within reach, tele Patient-specific fall prevention interventions for sensory deficits provided, if applicable: No CPG GOAL OUTCOME EVALUATION: Ongoing * Initial Assessments - Angela Loving RN - 08/30/2019 4:37 PM EDT Office of Care Management Assessment Medical record reviewed. Plan of care and patient status discussed with direct care RN and/or Care Team in multidisciplinary rounds. Screenin y.o. female here for left heart cath today . Present on Admission: ??? NSTEMI (non-ST elevated myocardial infarction) Patient has not been admitted to a hospital within the last 30 days. Patient receiving hospital care under Inpatient status. Admission order reviewed. Primary Insurance on file: MVP Secondary Insurance on file: N/A Primary care provider on file: Tim Rogers, [employer]ON TENDER [phone] Advance Directive on file and Code Status: Full Code Patient???s Functional Status: Independent w/o device Living Situation: lives with Boby Roque (Spouse) [phone] (M) at [address] [place] [address] Supports: Boby, Mother son and daughter Assessment: Patient with no apparent RNCM/SW needs at this time. No housing, transportation, insurance, resources concerns identified at this time. Supports in place to achieve a safe post-hospital transition. No identified barriers to accessing necessary care and/or follow-up after discharge. Plan: Patient to d/c to home when medically ready. detail sergeant/Pediatric Neuropsychologist will continue to follow patient???s progress and remain available if situation changes for coordination of care, psychosocial support and/or discharge planning. Angela Loving RN * Brief Op Note - Jessee Malone MD - 08/30/2019 2:31 PM EDT Preliminary Cardiac Catheterization Procedure Note: Patient Name: Loida Roque : [id number] MR#: [id number] Case Date: 08/30/2019 President Celebrity Acquistion: Surgeon(s) and Role: * Jessee Malone MD - Primary * Luis Tatum PA - Fellow Preoperative diagnosis: ?CAD Postoperative diagnosis: * CAD * Procedure(s) performed: [facility] Coronary angio Access: Right radial A time-out was conducted prior to the start of the procedure to verify the correct patient and procedure, procedure location, and all relevant critical information. Preliminary findings: Right dominant Normal coronary arteries LVEDP 15 The patient tolerated the procedures smoothly and was transferred from the cardiac catheterization lab to the next level of care in stable condition. No evident early complications. Full report to follow. Jessee Malone MD * Plan of Care - Abeba Conway PA - 08/30/2019 9:55 AM EDT Images from the original note [...] 2: Patient with mild systemic disease Mallampati: II: tonsillar pillars are blocked by the tongue Sedation Plan: moderate (conscious sedation) Assessment and Plan: Proceed with cardiac cath today, see progress note from today for further details. JOCY Montaño 08/30/2019 Pager [phone] * Plan of Care - Efrain Verma RN - 08/30/2019 5:44 AM EDT Problem: Patient Care Overview Goal: Plan of Care Review Outcome: Ongoing (Interventions Implemented as Appropriate) 08/30/19 0539 Coping/Psychosocial Plan Of Care Reviewed With patient Plan of Care Review Progress progress towards functional goals is fair OUTCOME EVALUATION NOTE: OUTCOME SUMMARY: Pt reports no SOB/CP, SR/SB on tele, HR 50-85. NPO after MN, SP02 mid to high 90s on RA. Heparin gtt maintained. Respiratory paged for CPAP, pt resting comfortably will continue to monitor. PLAN MOVING FORWARD: ECHO 08/29, possible cath INDIVIDUALIZED FALL PREVENTION INTERVENTIONS: Patient-specific fall risk factors per assessment: [current deficits]: None Assistance [level of assistance required for transfers and ambulation]: Ind Supervision [direct monitoring required during toileting and ADLs]: Int Surveillance [continuous indirect monitoring]: Tele Patient-specific fall prevention interventions for sensory deficits provided, if applicable: None CPG GOAL OUTCOME EVALUATION: Ongoing * Plan of Care - Mark Nick RN - 08/29/2019 5:33 PM EDT Problem: Patient Care Overview Goal: Plan of Care Review Outcome: Ongoing (Interventions Implemented as Appropriate) 08/29/19 1732 Coping/Psychosocial Plan Of Care Reviewed With patient Plan of Care Review Progress no change OUTCOME EVALUATION NOTE: OUTCOME SUMMARY: Pt A&Ox4. Vitals as documented. See chart for tele report. Pt denies SOB or CP. Pt had good day, arrived to unit this afternoon. Heparin gtt maintained. NPO for cath tomorrow. Will continue to monitor. PLAN MOVING FORWARD: Cath ECHO D/C as necessary INDIVIDUALIZED FALL PREVENTION INTERVENTIONS: Patient-specific fall risk factors per assessment: [current deficits]: Hospital environment, tele Assistance [level of assistance required for transfers and ambulation]: Ind Supervision [direct monitoring required during toileting and ADLs]: Ind Surveillance [continuous indirect monitoring]: Purposeful hourly rounding, call ghosh within reach, tele Patient-specific fall prevention interventions for sensory deficits provided, if applicable: No CPG GOAL OUTCOME EVALUATION: Ongoing documented in this encounter Plan of Treatment Upcoming Encounters Date Type Department Care Team (Late st Contact Info) Description 10/08/2023 8:30 AM EDT Tech [place] [phone] Jose Cook 10/08/2023 9:30 AM EDT Office [place] [phone] MD [facility] [address] 10/21/2023 10:30 AM EDT Appointment [place] [phone] [address] [facility] [place] [address] 10/21/2023 11:30 AM EDT Appointment Nuclear Medicine at [place] [phone] Mary Reyes [facility] [place] [address] 10/21/2023 12:30 PM EDT Appointment [place] [address] Mary Reyes [facility] [place] [address] 10/21/2023 1:30 PM EDT Appointment [place] [address] Mary Reyes [facility] [place] [address] 10/21/2023 2:30 PM EDT Appointment [place] [address] Mary Reyes [facility] [place] [address] 10/26/2023 4:00 PM EDT Office Visit Cardiology at [address] [phone] Jaspreet Kinsey MD [facility] [place] [address] 10/28/2023 9:00 AM EDT Office [place] [address] 10/29/2023 10:00 AM EDT Clinical [place] [address] 10/29/2023 10:15 AM EDT Procedure [place] [address] 11/01/2023 5:00 PM EDT Office [place] [address] Selene Browning, PhD [facility] [address] 11/22/2023 4:40 PM EDT Office Visit Cardiology at [address] [phone] Porsha Mcdaniels MD [facility] [address] 12/13/2023 10:00 AM EDT Clinical [place] [address] Lucero Romero, ALVA [facility] [place] [address] documented as of this encounter Procedures Procedure Name Priority Date/Time Associated Diagnosis Comments BEDSIDE SPIROMETRY W/O BRONCHODIALATOR Routine 08/31/2019 6:24 PM EDT SOB (shortness of breath) EKG 12-LEAD Routine 08/31/2019 7:05 AM EDT Non-ST elevation myocardial infarction (NSTEMI) HC VENIPUNCTURE Routine 08/31/2019 4:12 AM EDT HEMOGRAM Routine 08/31/2019 4:12 AM EDT DIFFERENTIAL, AUTOMATED Routine 08/31/19 20 4:12 AM EDT HC CBC,PLT & AUTO DIFF Routine 0 4:12 AM EDT HC MAGNESIUM, SERUM Routine 08/31/2019 4 :12 AM EDT CARDIAC CATHETERIZATION Routine 08/30/19 2:40 PM EDT ECHO COMPLETE W CONTRAST Routine 08/30/2019 12:23 PM EDT Non-ST elevation myocardial infarction (NSTEMI) EKG 12-LEAD Routine 08/30/2019 10:28 AM EDT Non-ST elevation myocardial infarction (NSTEMI) HC UNFRACTIONATED HEPARIN (HEP UFH) STAT 08/30/2019 2:53 AM EDT BMP W/FASTING GLUCOSE Routine 08/30/2019 2:53 AM EDT HEMOGRAM Routine 08/30/2019 2:53 AM EDT DIFFERENTIAL, AUTOMATED Routine 08/30/19 2:53 AM EDT HC CBC,PLT & AUTO DIFF Routine 0 2:53 AM EDT HC TROPONIN T STAT 08/30/2019 2:53 AM EDT HC TRIGLYCERIDES Routine 08/30/2019 2:53 AM EDT HC MAGNESIUM, SERUM Routine 08/30/2019 2 :53 AM EDT HC LDL CHOLESTEROL, DIRECT Routine 08/30/2019 2:53 AM EDT HC CHOLESTEROL Routine 08/30/2019 2:53 AM EDT HC HEMOGLOBIN A1C Routine 08/30/2019 2:5 3 AM EDT HC CREATINE PHOSPHOKINASE, SERUM Routine 08/30/2019 2:53 AM EDT HC VENIPUNCTURE STAT 08/29/2019 8:30 PM EDT HEMOGRAM Routine 08/29/2019 8:30 PM EDT DIFFERENTIAL, AUTOMATED Routine 08/29/19 20 8:30 PM EDT HC CBC,PLT & AUTO DIFF Routine 0 8:30 PM EDT HC TROPONIN T STAT 08/29/2019 8:30 PM EDT HC CREATINE PHOSPHOKINASE, SERUM Routine 08/29/2019 8:30 PM EDT EKG 12-LEAD STAT 08/29/2019 4:19 PM EDT Non-ST elevation myocardial infarction (NSTEMI) HEMOGRAM STAT 08/29/2019 3:10 PM EDT DIFFERENTIAL, AUTOMATED STAT 08/29/19 20 3:10 PM EDT HC PARTIAL THROMBOPLASTIN TIME STAT 08/29/2019 3:10 PM EDT HC PROTHROMBIN TIME STAT 08/29/2019 3 :10 PM EDT HC CBC,PLT & AUTO DIFF STAT 0 3:10 PM EDT HC TROPONIN T STAT 08/29/2019 3:10 PM EDT HC THYROID STIMULATING HORMONE, SERUM Routine 08/29/2019 3:10 PM EDT HC PROBNP STAT 08/29/2019 3:10 PM EDT HC CREATINE PHOSPHOKINASE, SERUM Routine 08/29/2019 3:10 PM EDT HEPATIC FUNCTION PANEL Routine 0 3:10 PM EDT HC VENIPUNCTURE STAT 08/29/2019 3:10 PM EDT documented in this encounter Results * Bedside spirometry WITHOUT bronchodialator (08/31/2019 6:24 PM EDT) Narrative Zoe Morocho MD - 08/31/2019 6:24 PM EDT Zoe Morocho MD ? 09/04/2019 ??3:14 PM Pulmonary Function Test Interpretation FEV1 is normal. FVC is reduced. ??The FEV1/FVC ratio is normal. 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%) Zoe Morocho MD Natalia Urbina [employer]ON TENDER PFT ORDERABLES * EKG 12 Lead (08/31/2019 7:05 AM EDT) Ventricular rate 51 BPM MUSE SYSTEM Atrial Rate 51 BPM MUSE SYSTEM P-R Interval 186 ms MUSE SYSTEM QRS Duration 82 ms MUSE SYSTEM Q-T Interval 546 ms MUSE SYSTEM QTC Calculated (Bezet) 503 ms MUSE SYSTEM Calculated P Bighorn 18 degrees MUSE SYSTEM Calculated R B[place]orn 52 degrees MUSE SYSTEM Calculated T Bighorn 13 degrees MUSE SYSTEM INTERPRETATION Sinus bradycardia Possible Left atrial enlargement Nonspecific ST and T wave abnormality Prolonged QT Abnormal ECG When compared with ECG of 30-AUG-2019 10:28, T wave inversion no longer evident in Inferior leads Nonspecific T wave abnormality, worse in Lateral leads Confirmed by MD NAILA, KAUSHIK ([id number]) on 08/31/2019 2:46:56 PM MUSE SYSTEM 08/31/2019 7:05 AM EDT 08/31/2019 2:46 PM EDT Manish Benitez MD ECG ORDERABLES MUSE SYSTEM * (ABNORMAL) Differential, Automated (08/31/2019 4:12 AM EDT) Neutrophils % 45.2 % [facility] Neutr Abs (ANC) 2.73 1.70 - 6.10 x10(3)/mc L [facility] Lymphocytes % 34.8 % [facility] Lymphocytes Abs 2.1 0.9 - 3.2 x10(3)/mc L [facility] Monocytes % 10.1 % [facility] Monocyte Abs 0.6 0.3 - 0.9 x10(3)/[facility] LABORATORY Eosinophils % 8.9 % [facility] Eosinophils Abs 0.5(H) 0.0 - 0.4 x10(3)/[facility] LABORATORY Basophils % 0.8 % [facility] Basophils Abs 0.0 0.0 - 0.1 x10(3)/[facility] LABORATORY Immature Gran % 0.20 % [facility] Comment: Immature granulocytes(IG's)percentage and absolute count will include metamyelocytes, myelocytes, and promyelocytes. Blood smears from CBCs yielding IG's will be scanned manually for concordance. If this scan disagrees with the automated IG or if promyelocytes are noted, a manual differential will be performed. Shonda Gran Abs 0.01 0.00 - 0.04 x10(3)/[facility] LABORATORY Blood specimen (specimen) 08/31/2019 4:12 AM EDT 08/31/2019 4:29 AM EDT Narrative Resulting Agency Comment Spec In Lab Abeba SANDRA HEMATOLOGY ORDERABLE S [facility] [place] [address] * (ABNORMAL) Hemogram (08/31/2019 4:12 AM EDT) WBC 6.0 4.0 - 9.5 x10(3)/[facility] LABORATORY RBC 5.08 4.00 - 5.21 x10(6)/[facility] LABORATORY Hemoglobin 15.7(H) 11.7 - 15.5 gm/dL [facility] Hematocrit 47.0(H) 35.7 - 45.8 % [facility] [place]CV 92.5 82.6 - 94.4 fL [facility] MCH 30.9 27.1 - 32.0 pg [facility] MCHC 33.4 31.7 - 35.0 gm/dL [facility] Platelets 255 145 - 357 x10(3)/[facility] LABORATORY RDWSD 45.3 37.0 - 46.0 fL [facility] RDWCV 13.2 11.5 - 14.1 % [facility] MPV 11.4 7.6 - 12.9 fL [facility] nRBC % Auto 0.0 % [facility] nRBC Abs Auto 0.000 0.000 - 0.000 x10(3)/[facility] LABORATORY Blood specimen (specimen) 08/31/2019 4:12 AM EDT 08/31/2019 4:29 AM EDT Narrative Resulting Agency Comment Spec In Lab Abeba SANDRA HEMATOLOGY ORDERABLE S Performing Organization Address [facility] Co de Phone Number [facility] [place] [address] * Magnesium (08/31/2019 4:12 AM EDT) Magnesium 0.92 0.69 - 1.07 mmol/L [facility] Blood specimen (specimen) 08/31/2019 4:12 AM EDT 08/31/2019 4:29 AM EDT Narrative Resulting Agency Comment Spec In Lab Manish Benitez MD CHEMISTRY ORDERABL ES Performing Organization Address [facility] Co de Phone Number [facility] [place] [address] * (ABNORMAL) BMP w/fasting Glucose (08/31/2019 4:12 AM EDT) Glucose Fasting 91 65 - 99 mg/dL [facility] Comment: ?Fasting* Glucose Interpretive Criteria [...] of Diabetes Mellitus, Position Statement from the [place] [employer]. ??Diabetes Care, Volume 33, Supplement 1, Mar 2009 BUN 21(H) 8 - 18 mg/dL [facility] Creatinine 0.91 0.70 - 1.20 mg/dL [facility] [...] 107 mmol/L [facility] CO2 18(L) 22 - 31 mmol/L [facility] Anion Gap 13 5 - 15 mmol/L [facility] Calcium 9.4 8.5 - 10.5 mg/dL [facility] Estimated GFR 74 >=60 mL/min/1. 73 m?? [facility] Comment: The eGFR was calculated using the CKD-EPI equation. As with all creatinine based estimates of kidney function, eGFR values calculated with the CKD-EPI equation are not accurate in patients with acute kidney failure, extremes of body mass or the acutely ill. [email or web address] eGFR 85 >=60 mL/min/1. 73 m?? [facility] Comment: The eGFR was calculated using the CKD-EPI equation. As with all creatinine based estimates of kidney function, eGFR values calculated with the CKD-EPI equation are not accurate in patients with acute kidney failure, extremes of body mass or the acutely ill. [email or web address] Blood specimen (specimen) 08/31/2019 4:12 AM EDT 08/31/2019 4:29 AM EDT Narrative Resulting Agency Comment Spec In Lab Manish Benitez MD CHEMISTRY ORDERABL ES Performing Organization Address [facility]/ZIP Co de Phone Number [facility] [place] [address] * CARDIAC CATHETERIZATION (08/30/2019 2:40 PM EDT) Anatomical Region Laterality Modality Other Narrative 08/30/2019 2:59 PM EDT ?[facility] ? Cardiac Catheterization/Intervention Report ? Patient Name: Neisha, Loida ? Procedure Date: 08/30/2019 ? A #: [id number] ? Primary Physician: Kira, Jessee T ? Case #: [id number] ? File Name: [id number] ? Catheterization Order Number: [id number] ? [facility] ? Final Report [place], [place] ? Patient Name: ? Loida Neisha ? ID#: ?[id number] ? : ?1970 ? Procedure Date: ? August 30, 2019 ?Case #: ? [id number] ? Room: ? 5 ? Case Physician: ? Jessee Malone M.D. ?Start: ?14:11 ? Admission: ??08/29/2019 ? Referring Physician: ??Pooja Iyer ? Procedures: ?* Coronary Angiography ?* Left Heart Catheterization ? History ?Loida Roque is a 49 year old woman. The patient's smoking status ?is Never. The patient is also status post an acute non-ST elevation ?myocardial infarction. Prior to the initiation of this procedure, the ?patient was designated as ASA Class III. The CSHA clinical frailty scale ?is 2: Well. ? Diagnostic Tests: ?Prior Coronary Angiography: ? LV ejection fraction within 6 months is 65%. ?Medications Prior to Procedure: ? Aspirin. ? Indications for Diagnostic Cath: ?The priority of the diagnostic procedure was Urgent. 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 Chest pain ?symptom assessment was: Typical Angina. ? Technique: ?A 6 SLFr sheath was inserted in the right radial artery utilizing the ?Seldinger technique. The left coronary artery was injected utilizing a ?5Fr EBU 3.0 catheter. A 5Fr VERONICA RADIAL catheter was used to inject the ?right coronary artery. Left ventricular pressure was performed with a 5Fr ?VERONICA RADIAL catheter. A total of 100cc of Omnipaque were opened, 55cc of ?Omnipaque were administered and 45cc of Omnipaque were wasted. Radiation: ?Fluoro time was 4.5 minutes, dose area product was 38,106 mGYcm2 and air ?kerma was 780 mGY. See the case log for additional details. ?The patient received the following medications prior to and during the ?procedure: ? Unfractionated Heparin and Clopidogrel. ? Hemodynamics: ?Left Heart Pressures ? Resting: ? Syst Diast ? EDP ?a ?v ? m ?Ao 108 ?? 70 ?85 ?LV 111 ? 17 ? Coronary Angiography: ?Dominance: Right ?Left Main ? The left main was normal, free of disease. ?Left Anterior Descending ? The left anterior descending (LAD) was normal, free of disease. ?Left Circumflex ? The left circumflex (LCX) was normal, free of disease. ?Right Coronary Artery ? The right coronary artery (RCA) was normal, free of disease. ? Vascular Access: ?Vascular Access Management: ? Mechanical Compression of the right radial artery access site was ? performed. ? Conclusions: ?* Normal coronary arteries ? Complications/Events: ?The patient had no complications during these procedures. ?The attending physician was present for the entire procedure. ?Dr. Jessee Malone M.D. was present during the moderate sedation ?intraservice time as documented by the sedation nurse. ??Case time = 00:18. ?Dr. Jessee Malone M.D. performed the coronary angiography and left heart ?catheterization. ? Jessee Malone M.D. ? Electronically Signed by: Jessee Malone M.D. ? Report Finalized: 08/30/2019 ??14:56 ? Procedure Note Jessee Malone MD - 08/30/2019 [facility] Cardiac Catheterization/Intervention Report Patient Name: Loida Roque Procedure Date: 08/30/2019 A #: [id number] Primary Physician: Jessee Malone Case #: [id number] File Name: [id number] Catheterization Order Number: [id number] [facility] [place], [place] Patient Name: Loida Roque ID#:[id number] :1970 Procedure Date: August 30, 2019 Case #: [id number] Room: 5 Case Physician: Jessee Malone M.D. Start: 14:11 Admission:08/29/2019 Referring Physician: Pooja Iyer Procedures: * Coronary Angiography * Left Heart Catheterization History Loida Roque is a 49 year old woman. The patient's smokingstatus is Never. The patient is also status post an acute non-ST elevation myocardial infarction. Prior to the initiation of this procedure,the patient was designated as ASA Class III. The [facility] clinical frailtyscale is 2: Well. Diagnostic Tests: Prior Coronary Angiography: LV ejection fraction within 6 months is 65%. Medications Prior to Procedure: Aspirin. Indications for Diagnostic Cath: The priority of the diagnostic procedure was Urgent. 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 Chest pain symptom assessment was: Typical Angina. Technique: A 6 SLFr sheath was inserted in the right radial artery utilizingthe Seldinger technique. The left coronary artery was injected utilizinga 5Fr EBU 3.0 catheter. A 5Fr VERONICA RADIAL catheter was used to injectthe right coronary artery. Left ventricular pressure was performed witha 5Fr VERONICA RADIAL catheter. A total of 100cc of Omnipaque were opened,55cc of Omnipaque were administered and 45cc of Omnipaque were wasted.Radiation: Fluoro time was 4.5 minutes, dose area product was 38,106 mGYcm2 andair kerma was 780 mGY. See the case log for additional details. The patient received the following medications prior to and duringthe procedure: Unfractionated Heparin and Clopidogrel. Hemodynamics: Left Heart Pressures Resting: Syst Diast [...] radial artery access sitewas performed. Conclusions: * Normal coronary arteries Complications/Events: The patient had no complications during these procedures. The attending physician was present for the entire procedure. Dr. Jessee Malone M.D. was present during the moderate sedation intraservice time as documented by the sedation nurse. Case time =00:18. Dr. Jessee Malone M.D. performed the coronary angiography and leftheart catheterization. Jessee Malone M.D. Electronically Signed by: Jessee Malone M.D. Report Finalized: 08/30/2019 14:56 Jessee Malone MD CARDIAC CATH ORDERAB LES * ECHO COMPLETE W CONTRAST (08/30/2019 12:23 PM EDT) EF 62 HEARTLAB SYSTEM Anatomical Region Laterality Modality Other 08/30/2019 Narrative 08/30/2019 2:22 PM EDT Procedure: ?Transthoracic Echocardiogram Patient: ?NEISHA LOIDA ?(Age): 1970(49y) Med Rec#: ? [id number] ?Sex: ?F ? Site Loc: ? [facility] ?Ht / Wt: ??163(cm)/94(kg) Pt. Loc: ?Adult Floor ? BSA: ?1.99 Study Date: ?? 08/30/2019 ?Pt. Type: Inpatient Tape: ? Referring: POOJA IYER J Reading: Jose Chambers ([id number]) Safety Grooving Machine Operator: Jaspreet Oneil [facility] Interpreting Fellow: Poncho Yates ([id number]) Diagnosis: *Non-ST elevation (NSTEMI) myocardial infarction (I21.4) BP: ? 120/74 SUMMARY: 1. Technically limited study. 2. The left [...] There is mild right ventricular hypertrophy observed. ??Right ventricular global systolic function is normal. 4. The left atrium is severely dilated. The right atrium appears normal. 5. There is no hemodynamically significant valve disease. 6. Pulmonary artery hypertension could not be assessed due to inadequate tricuspid regurgitation jet. 7. See remainder of report for additional findings. Findings ? : Study Quality: ? Technically limited Left Ventricle: ? The left ventricular chamber size is normal. ?Moderate concentric left ventricular hypertrophy is observed. ?Basal septal hypertrophy is observed. ?There is no evidence of LVOT obstruction. ?No ventricular septal defect is visualized. ?The quantitative left ventricular ejection fraction by biplane Reyes's method is 62%. ?There are no left ventricular segmental wall motion abnormalities. ?Left sided filling pressure could not be assessed by Doppler. Left Atrium: ? The left atrium is severely dilated.49 ml/m2 Right Ventricle: ? The right ventricle is probably normal in size. ?There is mild right ventricular hypertrophy observed. ?Right ventricular global systolic function is normal. ?Pulmonary artery hypertension could not be assessed due to inadequate tricuspid regurgitation jet. Right Atrium: ? The right atrium appears normal. Aortic Valve: ? The aortic valve is not well visualized. ?The aortic valve is probably tricuspid. ?Systolic excursion of the aortic valve is normal. ?There is no evidence of aortic valve stenosis. ?There is no evidence of aortic regurgitation. Mitral Valve: ? The mitral valve leaflets are mildly thickened. ?There is no evidence of mitral stenosis. ?There is trace mitral regurgitation present. Tricuspid Valve: ? The tricuspid valve appears normal in structure and function. ?There is trace tricuspid regurgitation present. Pulmonic Valve: ? The pulmonic valve is not well visualized. ?The pulmonic valve is probably normal. Pericardium: ? A pericardial fat pad is visualized. ?There is no echo evidence of pericardial tamponade. Aorta: ? The aortic root is normal in size. ?The ascending aorta is normal in size. Pulmonary Artery: ? The main pulmonary artery is not well visualized. Venous: ? The inferior vena cava appears normal in size. ?There is less than 50% respiratory change in the inferior vena cava dimension consistent with elevated right atrial pressure. Misc: ? Two-dimensional echo, spectral Doppler and color Doppler performed. ?Optison contrast (one 3 ml vial) was used to enhance endocardial definition. Excess contrast was discarded. Chambers 2D ?Value ?Units (Range) ? IVSd (2D) ? 1.71 ? cm ? LVPWd (2D) ?1.59 ? cm ? IVS:LVPW ratio (2D) 1.08 ? ratio ? RWT (2D) ?0.72 ? ratio ? RWT PW (2D) ? 0.7 ?ratio ? LVIDd (2D) ?4.56 ? cm ? LVIDs (2D) ?3.03 ? cm ? LVIDd (2D) index ?2.29 ? cm/m2 ? LVIDs (2D) index ?1.52 ? cm/m2 ? LV FS (2D) ?33.55 ?% ? EF Teichholz (2D) ?? 62.4 ? % ? Ao root diameter (2D2.5 ?cm (2.1 - 3.6) ? Ascending Ao ?2.9 ?cm (2 - 3.5) ? Volumes/Mass ?Value ?Units (Range) ? LA Area 4 CH ?31 ? cm2 (<21) ? RA AREA 4CH ? 15 ? cm2 ? LA ESV BP (MOD) inde48.6 ? ml/m2 ? LV ESV SP 4CH (MOD) 35.6 ? ml ? LV ESV SP 2CH (MOD) 38.2 ? ml ? LV EDV BP ? 94 ? ml ? LV ESV BP ? 36.2 ? ml ? LV EDV BP index ? 47.24 ?ml/m2 ? LV ESV BP index ? 18.19 ?ml/m2 ? BP EF (MOD) ? 61.49 ?% ? LV mass (2D) ?325.72 ? g ? LV mass (2D) index ??163.71 ? g/m2 ? Diastolic/Systolic Function ?Value ?Units (Range) ? MV E-wave Vmax ?0.35 ? m/sec ? MV deceleration [id number] ?msec ? MV A-wave Vmax ?0.25 ? m/sec ? MV E:A ratio ?1.42 ? ratio ? LV septal e' Vmax ?? 0.03 ? m/sec ? LV lateral e' Vmax ??0.03 ? m/sec ? LV average e' Vmax ??0.03 ? m/sec ? LV E:e' septal ratio11.63 ?ratio ? LV E:e' lateral rati11.63 ?ratio ? LV average E:e' rati11.63 ?ratio ? Wall Motion: Segment Name ?Rest ? Base-Anteroseptal ?? Normal ? Base-Anterior ? Normal ? Base-Anterolateral ??Normal ? Base-Posterolateral Normal ? Base-Inferior ? Normal ? Base-Inferoseptal ?? Normal ? Mid-Anteroseptal ?Normal ? Mid-Anterior ?Normal ? Mid-Anterolateral ?? Normal ? Mid-Posterolateral ??Normal ? Mid-Inferior ?Normal ? Mid-Inferoseptal ?Normal ? Matteson-Septal ? Normal ? Matteson-Anterior ? Normal ? Matteson-Lateral ?Normal ? Matteson-Inferior ? Normal ? Matteson-Tip ?Normal ? This report has been electronically signed by: Jose Chambers MD ? 08/30/2019 14:21:57 Images reviewed and interpretation verified [facility] Cardiac [facility]ound [facility] Procedure Note Jose Chambers MD - 08/30/2019 Procedure: Transthoracic Echocardiogram Patient: NEISHA VÁSQUEZ(Age): 1970(49y) Med Rec#: [id number] Sex: F Site Loc: [facility] Ht / Wt: 163(cm)/94(kg) Pt. Loc: Adult Floor BSA: 1.99 Study Date: 08/30/2019 Pt. Type: Inpatient Tape: Referring: POOJA IYER J Reading: Jose Chambers ([id number]) Safety Grooving Machine Operator: Jaspreet Oneil RDCS Interpreting Fellow: Poncho Yates ([id number]) Diagnosis: *Non-ST elevation (NSTEMI) myocardial infarction (I21.4) BP: 120/74 SUMMARY: 1. Technically limited study. 2. The left [...] See remainder of report for additional findings. Findings : Study Quality: Technically limited Left Ventricle: The left ventricular chamber size is normal. Moderate concentric left ventricular hypertrophy is observed. Basal septal hypertrophy is observed. There is no evidence of LVOT obstruction. No ventricular septal defect is visualized. The quantitative left ventricular ejection fraction by biplane Reyes's method is 62%. There are no left ventricular segmental wall motion abnormalities. Left sided filling pressure could not be assessed by Doppler. Left Atrium: The left atrium is severely dilated.49 ml/m2 Right Ventricle: The right ventricle is probably normal in size. There is mild right ventricular hypertrophy observed. Right ventricular global systolic function is normal. Pulmonary artery hypertension could not be assessed due to inadequate tricuspid regurgitation jet. Right Atrium: The right atrium appears normal. Aortic Valve: The aortic valve is not well visualized. The aortic valve is probably tricuspid. Systolic excursion of the aortic valve is normal. There is no evidence of aortic valve stenosis. There is no evidence of aortic regurgitation. Mitral Valve: The mitral valve leaflets are mildly thickened. There is no evidence of mitral stenosis. There is trace mitral regurgitation present. Tricuspid Valve: The tricuspid valve appears normal in structure and function. There is trace tricuspid regurgitation present. Pulmonic Valve: The pulmonic valve is not well visualized. The pulmonic valve is probably normal. Pericardium: A pericardial fat pad is visualized. There is no echo evidence of pericardial tamponade. Aorta: The aortic root is normal in size. The ascending aorta is normal in size. Pulmonary Artery: The main pulmonary artery is not well visualized. Venous: The inferior vena cava appears normal in size. There is less than 50% respiratory change in the inferior vena cava dimension consistent with elevated right atrial pressure. Misc: Two-dimensional echo, spectral Doppler and color Doppler performed. Optison contrast (one 3 ml vial) was used to enhance endocardial definition. Excess contrast was discarded. Chambers 2D Value Units (Range) IVSd (2D) 1.71 cm LVPWd (2D) 1.59 cm IVS:LVPW ratio (2D) 1.08 ratio RWT (2D) 0.72 ratio RWT PW (2D) 0.7 ratio LVIDd (2D) 4.56 cm LVIDs (2D) 3.03 cm LVIDd (2D) index 2.29 cm/m2 LVIDs (2D) index 1.52 cm/m2 LV FS (2D) 33.55 % EF Teichholz (2D) 62.4 % Ao root diameter (2D2.5 cm (2.1 - 3.6) Ascending Ao 2.9 cm (2 - 3.5) Volumes/Mass Value Units (Range) LA Area 4 CH 31 cm2 (<21) RA AREA 4CH 15 cm2 LA ESV BP (MOD) inde48.6 ml/m2 LV ESV SP 4CH (MOD) 35.6 ml LV ESV SP 2CH (MOD) 38.2 ml LV EDV BP 94 ml LV ESV BP 36.2 ml LV EDV BP index 47.24 ml/m2 LV ESV BP index 18.19 ml/m2 BP EF (MOD) 61.49 % LV mass (2D) 325.72 g LV mass (2D) index 163.71 g/m2 Diastolic/Systolic Function Value Units (Range) MV E-wave Vmax 0.35 m/sec MV deceleration [id number] msec MV A-wave Vmax 0.25 m/sec MV E:A ratio 1.42 ratio LV septal e' Vmax 0.03 m/sec LV lateral e' Vmax 0.03 m/sec LV average e' Vmax 0.03 m/sec LV E:e' septal ratio11.63 ratio LV E:e' lateral rati11.63 ratio LV average E:e' rati11.63 ratio Wall Motion: Segment Name Rest Base-Anteroseptal Normal Base-Anterior Normal Base-Anterolateral Normal Base-Posterolateral Normal Base-Inferior Normal Base-Inferoseptal Normal Mid-Anteroseptal Normal Mid-Anterior Normal Mid-Anterolateral Normal Mid-Posterolateral Normal Mid-Inferior Normal Mid-Inferoseptal Normal Matteson-Septal Normal Matteson-Anterior Normal Matteson-Lateral Normal Matteson-Inferior Normal Matteson-Tip Normal This report has been electronically signed by: Jose Chambers MD 08/30/2019 14:21:57 Images reviewed and interpretation verified [facility] Cardiac Ultrasound [facility] Manish Benitez MD ECHO ORDERABLES * EKG 12 Lead (08/30/2019 10:28 AM EDT) Ventricular rate 52 BPM MUSE SYSTEM Atrial Rate 52 BPM MUSE SYSTEM P-R Interval 162 ms MUSE SYSTEM QRS Duration 84 ms MUSE SYSTEM Q-T Interval 536 ms MUSE SYSTEM QTC Calculated (Bezet) 498 ms MUSE SYSTEM Calculated P Bighorn -9 degrees MUSE SYSTEM Calculated R Bighorn 43 degrees MUSE SYSTEM Calculated T Bighorn -27 degrees MUSE SYSTEM INTERPRETATION Sinus bradycardia Possible Lateral infarct , age undetermined ST & T wave abnormality, consider inferior ischemia Abnormal ECG When compared with ECG of 29-AUG-2019 16:19, (unconfirmed) Electronic demand pacing is no longer Present ??(may have been artifact) Premature ventricular complexes are no longer Present T wave inversion no longer evident in Anterior leads Confirmed by MD NAILA, KAUSHIK ([id number]) on 08/30/2019 4:45:49 PM MUSE SYSTEM 08/30/2019 10:2 8 AM EDT 08/30/2019 4:45 PM EDT Manish Benitez MD ECG ORDERABLES MUSE SYSTEM * Heparin (unfractionated) Level (08/30/2019 2:53 AM EDT) Heparin UFH Level 0.44 IU/mL [facility] Comment: Guidelines for therapeutic unfractionated heparin levels are summarized below. Heparin (Anti-Xa) levels should be determined in a plasma sample that has been drawn 6 hours after a dose change i.e., steady-state has been reached. DRUG ?Dosing Schedule ? Target Peak Steady-State ?Heparin (Anti-Xa) Levels (Units/mL) Unfractionated ?Continuous infusion ?0.3-0.7 Heparin ?0.3-0.6 for some neurology indications Blood specimen (specimen) 08/30/2019 2:53 AM EDT 08/30/2019 3:01 AM EDT Narrative Resulting Agency Comment Spec In Lab Manish Benitez MD HEMATOLOGY ORDERAB LES [facility] [place] [address] * (ABNORMAL) Differential, Automated (08/30/2019 2:53 AM EDT) Neutrophils % 52.4 % [facility] Neutr Abs (ANC) 3.85 1.70 - 6.10 x10(3)/[facility] LABORATORY Lymphocytes % 29.3 % [facility] Lymphocytes Abs 2.2 0.9 - 3.2 x10(3)/[facility] LABORATORY Monocytes % 9.1 % [facility] Monocyte Abs 0.7 0.3 - 0.9 x10(3)/[facility] LABORATORY Eosinophils % 8.6 % [facility] Eosinophils Abs 0.6(H) 0.0 - 0.4 x10(3)/[facility] LABORATORY Basophils % 0.5 % [facility] Basophils Abs 0.0 0.0 - 0.1 x10(3)/[facility] LABORATORY Immature Gran % 0.10 % [facility] Comment: Immature granulocytes(IG's)percentage and absolute count will include metamyelocytes, myelocytes, and promyelocytes. Blood smears from CBCs yielding IG's will be scanned manually for concordance. If this scan disagrees with the automated IG or if promyelocytes are noted, a manual differential will be performed. Shonda Gran Abs 0.01 0.00 - 0.04 x10(3)/ L [facility] Blood specimen (specimen) 08/30/2019 2:53 AM EDT 08/30/2019 3:01 AM EDT Narrative Resulting Agency Comment Spec In Lab Abeba SANDRA HEMATOLOGY ORDERABLE S [facility] [place] [address] * (ABNORMAL) Hemogram (08/30/2019 2:53 AM EDT) WBC 7.4 4.0 - 9.5 x10(3)/[facility] LABORATORY RBC 4.84 4.00 - 5.21 x10(6)/[facility] LABORATORY Hemoglobin 14.8 11.7 - 15.5 gm/dL [facility] Hematocrit 44.8 35.7 - 45.8 % [facility] MCV 92.6 82.6 - 94.4 [facility] LABORATORY MCH 30.6 27.1 - 32.0 pg [facility] MCHC 33.0 31.7 - 35.0 gm/dL [facility] Platelets 272 145 - 357 x10(3)/[facility] LABORATORY RDWSD 46.2(H) 37.0 - 46.0 [facility] LABORATORY RDWCV 13.5 11.5 - 14.1 % [facility] MPV 10.9 7.6 - 12.9 [facility] LABORATORY nRBC % Auto 0.0 % [facility] nRBC Abs Auto 0.000 0.000 - 0.000 x10(3)/[facility] Blood specimen (specimen) 08/30/2019 2:53 AM EDT 08/30/2019 3:01 AM EDT Narrative Resulting Agency Comment Spec In Lab Abeba SANDRA HEMATOLOGY ORDERABLE S [facility] [place] [address] * Magnesium (08/30/2019 2:53 AM EDT) Magnesium 0.90 0.69 - 1.07 mmol/L [facility] Blood specimen (specimen) 08/30/2019 2:53 AM EDT 08/30/2019 3:01 AM EDT Narrative Resulting Agency Comment Spec In Lab Manish Benitez MD CHEMISTRY ORDERABL ES [facility] [place] [address] * (ABNORMAL) BMP w/fasting Glucose (08/30/2019 2:53 AM EDT) Glucose Fasting 102(H) 65 - 99 mg/dL [facility] Comment: ?Fasting* Glucose Interpretive Criteria [...] of Diabetes Mellitus, Position Statement from the [place] Diabetes Association. ??Diabetes Care, Volume 33, Supplement 1, Mar 2009 BUN 18 8 - 18 mg/dL [facility] Creatinine 1.09 0.70 - 1.20 mg/dL [facility] [...] 73 m?? [facility] Comment: The eGFR was calculated using the CKD-EPI equation. As with all creatinine based estimates of kidney function, eGFR values calculated with the CKD-EPI equation are not accurate in patients with acute kidney failure, extremes of body mass or the acutely ill. [email or web address] eGFR 69 >=60 mL/min/1. 73 m?? [facility] Comment: The eGFR was calculated using the CKD-EPI equation. As with all creatinine based estimates of kidney function, eGFR values calculated with the CKD-EPI equation are not accurate in patients with acute kidney failure, extremes of body mass or the acutely ill. [email or web address] Blood specimen (specimen) 08/30/2019 2:53 AM EDT 08/30/2019 3:01 AM EDT Narrative Resulting Agency Comment Spec In Lab Manish Benitez MD CHEMISTRY ORDERABL ES Performing Organization Address [facility] Co de Phone Number [facility] [place] [address] * Triglyceride (08/30/2019 2:53 AM EDT) Triglycerides 203 mg/dL [facility] Comment: Average Risk/Lower Risk: <150 mg/dL Borderline High Risk: 150-199 mg/dL High Risk: 200-499 mg/dL Very High Risk: >ap=646 mg/dL Blood specimen (specimen) 08/30/2019 2:53 AM EDT 08/30/2019 3:01 AM EDT Narrative Resulting Agency Comment Spec In Lab Manish Benitez MD CHEMISTRY ORDERABL ES Performing Organization Address City/[facility]/ZIP Co de Phone Number [facility] [place] [address] * HDL/Cholesterol Profile (08/30/2019 2:53 AM EDT) Chol, Total 220 mg/dL [facility] Comment: Lower Risk: <200 mg/dL Average Risk: 200-239 mg/dL Higher Risk: >ld=628 mg/dL HDL 34 mg/dL [facility] Comment: Males: ?? Higher Risk: <40 mg/dL Females: ?? HIgher Risk: <50 mg/dL Chol/HDL Ratio 6.5 ratio [facility] Chol/HDL Interpretation See Note [facility] Comment: Lipid management should be guided by a patient? s ASCVD risk, goals and preferences. ACC/AHA Guidelines recommend high intensity statin if clinical ASCVD or LDL greater than or equal to 190 mg/dL. [email or web address] Measure LDL if Total Cholesterol minus HDL Cholesterol is greater than 220 mg/dL. Adults aged 40-75 with LDL 70-189 mg/dL should have their 10 year ASCVD risk estimated with the ACC/AHA ASCVD risk mottle lay up operator http://tools.acc.org/EVJOB-Ilsr-Zemirhelc/ Statin should be discussed if risk greater than or equal to 7.5% in non-diabetics. With diabetes, moderate intensity statin is recommended if risk less than 7.5%, high intensity if risk greater than or equal to 7.5%. Annual lipid monitoring on statins is not necessary. Lifestyle modification is a critical component of ASCVD risk reduction. Blood specimen (specimen) 08/30/2019 2:53 AM EDT 08/30/2019 3:01 AM EDT Narrative Resulting Agency Comment Spec In Lab Manish Benitez MD CHEMISTRY ORDERABL ES [facility] [place] [address] * LDL Cholesterol, Direct (08/30/2019 2:53 AM EDT) LDL Chol Direct 165 mg/dL [facility] Comment: Lowest Risk: <100 mg/dL Lower Risk: 100-129 mg/dL Borderline High Risk: 130-159 mg/dL High Risk: 160-189 mg/dL Very High Risk: >zk=976 mg/dL Blood specimen (specimen) 08/30/2019 2:53 AM EDT 08/30/2019 3:01 AM EDT Narrative Resulting Agency Comment Spec In Lab Manish Benitez MD CHEMISTRY ORDERABL ES [facility] [place] [address] * Hemoglobin A1c (08/30/2019 2:53 AM EDT) Hemoglobin A1C 5.4 4.3 - 5.6 % [facility] Comment: Reference Range: 4.3 - [...] 36: Suppl. 1, S67-74 Est Avg Gluc 108 mg/dL [facility] Comment: eAG equivalents for HbA1c [...] into estimated average glucose values. ??Diabetes Care 2008:31(8):1543-9800. Blood specimen (specimen) 08/30/2019 2:53 AM EDT 08/30/2019 3:01 AM EDT Narrative Resulting Agency Comment Spec In Lab Manish Benitez MD CHEMISTRY ORDERABL ES Performing Organization Address [facility] Co de Phone Number [facility] [place] [address] * CK (08/30/2019 2:53 AM EDT) CK, Total 82 0 - 160 unit/L [facility] Blood specimen (specimen) 08/30/2019 2:53 AM EDT 08/30/2019 3:01 AM EDT Narrative Resulting Agency Comment Spec In Lab Manish Benitez MD CHEMISTRY ORDERABL ES Performing Organization Address [facility] de Phone Number [facility] [place] [address] * Troponin (08/30/2019 2:53 AM EDT) Troponin-T <0.01 0.00 - 0.00 ng/mL [facility] Comment: The 99th percentile for Troponin T is less than 0.01 ng/mL, any detectable cTnT concentration using this assay should be considered elevated. According to the third universal definition of myocardial infarction the following criteria with a clinical presentation consistent with acute myocardial ischemia meets the diagnosis for a myocardial infarction (NV). Detection of a rise and/or fall of cTnT, with at least one value greater than the 99th percentile (> or = 0.01) and with at least one of the following ?? Symptoms of ischemia ?? New or presumed new significant VC-qxvaxvr-F wave (ST-T) changes or new left bundle [...] additional sample may be indicated. Reference: Third [place] Definition of Myocardial Infarction. Journal of the [place] College [employer]iology 2012;60:1581-98 Blood specimen (specimen) 08/30/2019 2:53 AM EDT 08/30/2019 3:01 AM EDT Narrative Resulting Agency Comment Spec In Lab Manish Benitez MD CHEMISTRY ORDERABL ES [facility] [place] [address] * (ABNORMAL) Differential, Automated (08/29/2019 8:30 PM EDT) Neutrophils % 56.5 % [facility] Neutr Abs (ANC) 3.58 1.70 - 6.10 x10(3)/mc L [facility] Lymphocytes % 25.9 % [facility] Lymphocytes Abs 1.6 0.9 - 3.2 x10(3)/mc L [facility] Monocytes % 8.8 % [facility] Monocyte Abs 0.6 0.3 - 0.9 x10(3)/mc L [facility] Eosinophils % 7.7 % [facility] Eosinophils Abs 0.5(H) 0.0 - 0.4 x10(3)/mc L [facility] Basophils % 0.8 % [facility] Basophils Abs 0.0 0.0 - 0.1 x10(3)/mc L [facility] Immature Gran % 0.30 % [facility] Comment: Immature granulocytes(IG's)percentage and absolute count will include metamyelocytes, myelocytes, and promyelocytes. Blood smears from CBCs yielding IG's will be scanned manually for concordance. If this scan disagrees with the automated IG or if promyelocytes are noted, a manual differential will be performed. Shonda Gran Abs 0.02 0.00 - 0.04 x10(3)/ L [facility] Blood specimen (specimen) 08/29/2019 8:30 PM EDT 08/29/2019 9:11 PM EDT Narrative Resulting Agency Comment Spec In Lab Abeba SANDRA HEMATOLOGY ORDERABLE S [facility] [place] [address] * (ABNORMAL) Hemogram (08/29/2019 8:30 PM EDT) WBC 6.3 4.0 - 9.5 x10(3)/[facility] RBC 5.03 4.00 - 5.21 x10(6)/[facility] Hemoglobin 15.3 11.7 - 15.5 gm/dL [facility] Hematocrit 46.4(H) 35.7 - 45.8 % [facility] MCV 92.2 82.6 - 94.4 [facility] MCH 30.4 27.1 - 32.0 pg [facility] MCHC 33.0 31.7 - 35.0 gm/dL [facility] Platelets 267 145 - 357 x10(3)/[facility] RDWSD 46.4(H) 37.0 - 46.0 [facility] RDWCV 13.6 11.5 - 14.1 % [facility] MPV 11.3 7.6 - 12.9 [facility] nRBC % Auto 0.0 % [facility] nRBC Abs Auto 0.000 0.000 - 0.000 x10(3)/[facility] Blood specimen (specimen) 08/29/2019 8:30 PM EDT 08/29/2019 9:11 PM EDT Narrative Resulting Agency Comment Spec In Lab Abeba SANDRA HEMATOLOGY ORDERABLE S Performing Organization Address [facility] de Phone Number [facility] [place] [address] * Heparin (unfractionated) Level (08/29/2019 8:30 PM EDT) Heparin UFH Level 0.46 IU/mL [facility] Comment: Guidelines for therapeutic unfractionated heparin levels are summarized below. Heparin (Anti-Xa) levels should be determined in a plasma sample that has been drawn 6 hours after a dose change i.e., steady-state has been reached. DRUG ?Dosing Schedule ? Target Peak Steady-State ?Heparin (Anti-Xa) Levels (Units/mL) Unfractionated ?Continuous infusion ?0.3-0.7 Heparin ?0.3-0.6 for some neurology indications Blood specimen (specimen) 08/29/2019 8:30 PM EDT 08/29/2019 9:11 PM EDT Narrative Resulting Agency Comment Spec In Lab Manish Benitez MD HEMATOLOGY ORDERAB LES Performing Organization Address [facility]/ZIP Co de Phone Number [facility] [place] [address] * CK (08/29/2019 8:30 PM EDT) CK, Total 94 0 - 160 unit/L [facility] Blood specimen (specimen) 08/29/2019 8:30 PM EDT 08/29/2019 9:11 PM EDT Narrative Resulting Agency Comment Spec In Lab Manish Benitez MD CHEMISTRY ORDERABL ES Performing Organization Address [facility] Co de Phone Number [facility] [place] [address] * Troponin (08/29/2019 8:30 PM EDT) [facility] Troponin-T <0.01 0.00 - 0.00 ng/mL [facility] Comment: The 99th percentile for Troponin T is less than 0.01 ng/mL, any detectable cTnT concentration using this assay should be considered elevated. According to the third universal definition of myocardial infarction the following criteria with a clinical presentation consistent with acute myocardial ischemia meets the diagnosis for a myocardial infarction (NV). Detection of a rise and/or fall of cTnT, with at least one value greater than the 99th percentile (> or = 0.01) and with at least one of the following ?? Symptoms of ischemia ?? New or presumed new significant WV-smghtzj-I wave (ST-T) changes or new left bundle [...] additional sample may be indicated. Reference: Third [place] Definition of Myocardial Infarction. Journal of the [place] College of Cardiology 2012;60:1581-98 Blood specimen (specimen) 08/29/2019 8:30 PM EDT 08/29/2019 9:11 PM EDT Narrative Resulting Agency Comment Spec In Lab Manish Benitez MD CHEMISTRY ORDERABL ES Performing Organization Address [facility] Co de Phone Number [facility] [place] [address] * EKG 12 Lead (08/29/2019 4:19 PM EDT) Ventricular rate 67 BPM MUSE SYSTEM Atrial Rate 67 BPM MUSE SYSTEM P-R Interval 164 ms MUSE SYSTEM QRS Duration 80 ms MUSE SYSTEM Q-T Interval 478 ms MUSE SYSTEM QTC Calculated (Bezet) 505 ms MUSE SYSTEM Calculated P Bighorn 34 degrees MUSE SYSTEM Calculated R Bighorn 30 degrees MUSE SYSTEM Calculated T Bighorn -29 degrees MUSE SYSTEM INTERPRETATION Demand pacemaker; interpretation is based on intrinsic rhythm Sinus rhythm Occasional Premature ventricular complexes Possible Left atrial enlargement ST & T wave abnormality, consider inferolateral ischemia Prolonged QT Abnormal ECG No previous ECGs available Confirmed by MD YOO SALVATORE ([id number]) on 08/30/2019 4:45:14 PM MUSE SYSTEM 08/29/2019 4:19 PM EDT 08/30/2019 4:45 PM EDT Manish Benitez MD ECG ORDERABLES MUSE SYSTEM * (ABNORMAL) Differential, Automated (08/29/2019 3:10 PM EDT) Pathologist [facility] Neutrophils % 58.3 % [facility] Neutr Abs (ANC) 3.79 1.70 - 6.10 x10(3)/mc L [facility] Lymphocytes % 22.7 % [facility] Lymphocytes Abs 1.5 0.9 - 3.2 x10(3)/mc L [facility] Monocytes % 10.3 % [facility] Monocyte Abs 0.7 0.3 - 0.9 x10(3)/mc L [facility] Eosinophils % 7.8 % [facility] Eosinophils Abs 0.5(H) 0.0 - 0.4 x10(3)/mc L [facility] Basophils % 0.6 % [facility] Basophils Abs 0.0 0.0 - 0.1 x10(3)/mc L [facility] Immature Gran % 0.30 % [facility] Comment: Immature granulocytes(IG's)percentage and absolute count will include metamyelocytes, myelocytes, and promyelocytes. Blood smears from CBCs yielding IG's will be scanned manually for concordance. If this scan disagrees with the automated IG or if promyelocytes are noted, a manual differential will be performed. Shonda Gran Abs 0.02 0.00 - 0.04 x10(3)/mc L [facility] Blood specimen (specimen) 08/29/2019 3:10 PM EDT 08/29/2019 3:50 PM EDT Narrative Resulting Agency Comment Spec In Lab Abeba SANDRA HEMATOLOGY ORDERABLE S [facility] [place] [address] * (ABNORMAL) Hemogram (08/29/2019 3:10 PM EDT) WBC 6.5 4.0 - 9.5 x10(3)/[facility] RBC 4.69 4.00 - 5.21 x10(6)/[facility] Hemoglobin 14.1 11.7 - 15.5 gm/dL [facility] Hematocrit 43.8 35.7 - 45.8 % [facility] MCV 93.4 82.6 - 94.4 [facility] MCH 30.1 27.1 - 32.0 pg [facility] MCHC 32.2 31.7 - 35.0 gm/dL [facility] Platelets 235 145 - 357 x10(3)/[facility] RDWSD 47.2(H) 37.0 - 46.0 [facility] RDWCV 13.7 11.5 - 14.1 % [facility] MPV 11.5 7.6 - 12.9 [facility] nRBC % Auto 0.0 % [facility] nRBC Abs Auto 0.000 0.000 - 0.000 x10(3)/[facility] Blood specimen (specimen) 08/29/2019 3:10 PM EDT 08/29/2019 3:50 PM EDT Narrative Resulting Agency Comment Spec In Lab Abeba SANDRA HEMATOLOGY ORDERABLE S Performing Organization Address [facility]/ZIP Co de Phone Number [facility] [place] [address] * Hepatic Function Panel (08/29/2019 3:10 PM EDT) Total Protein 7.1 6.1 - 8.0 gm/dL [facility] Albumin 4.0 3.2 - 5.2 gm/dL [facility] AST 25 0 - 30 unit/L [facility] ALT 19 0 - 30 unit/L [facility] Alk Phos 49 35 - 105 unit/L [facility] Total Bilirubin 0.7 0.2 - 1.3 mg/dL [facility] Bili, Direct 0.1 0.0 - 0.3 mg/dL [facility] Blood specimen (specimen) 08/29/2019 3:10 PM EDT 08/29/2019 3:52 PM EDT Narrative Resulting Agency Comment Spec In Lab Manish Benitez MD CHEMISTRY ORDERABL ES Performing Organization Address [facility] Co de Phone Number [facility] [place] [address] * TSH (08/29/2019 3:10 PM EDT) Pathologist [facility] TSH 1.87 0.27 - 4.20 mcIU/mL [facility] Blood specimen (specimen) 08/29/2019 3:10 PM EDT 08/29/2019 3:52 PM EDT Narrative Resulting Agency Comment Spec In Lab Manish Benitez MD CHEMISTRY ORDERABL ES Performing Organization Address [facility]/ZIP Co de Phone Number [facility] [place] [address] * (ABNORMAL) pro-Brain Natriuretic Peptide (08/29/2019 3:10 PM EDT) [facility] ProBNP 1,242(H) <=125 pg/mL [facility] Blood specimen (specimen) 08/29/2019 3:10 PM EDT 08/29/2019 3:52 PM EDT Narrative Resulting Agency Comment Spec In Lab Manish Benitez MD CHEMISTRY ORDERABL ES Performing Organization Address [facility] Co de Phone Number [facility] [place] [address] * CK (08/29/2019 3:10 PM EDT) [facility] CK, Total 96 0 - 160 unit/L [facility] Blood specimen (specimen) 08/29/2019 3:10 PM EDT 08/29/2019 3:52 PM EDT Narrative Resulting Agency Comment Spec In Lab Manish Benitez MD CHEMISTRY ORDERABL ES Performing Organization Address [facility] de Phone Number [facility] [place] [address] * Troponin (08/29/2019 3:10 PM EDT) [facility] Troponin-T <0.01 0.00 - 0.00 ng/mL [facility] Comment: The 99th percentile for Troponin T is less than 0.01 ng/mL, any detectable cTnT concentration using this assay should be considered elevated. According to the third universal definition of myocardial infarction the following criteria with a clinical presentation consistent with acute myocardial ischemia meets the diagnosis for a myocardial infarction (NV). Detection of a rise and/or fall of cTnT, with at least one value greater than the 99th percentile (> or = 0.01) and with at least one of the following ?? Symptoms of ischemia ?? New or presumed new significant EE-vqwaudq-V wave (ST-T) changes or new left bundle [...] additional sample may be indicated. Reference: Third [place] Definition of Myocardial Infarction. Journal of the [place] College of [employer]iology 2012;60:1581-98 Blood specimen (specimen) 08/29/2019 3:10 PM EDT 08/29/2019 3:52 PM EDT Narrative Resulting Agency Comment Spec In Lab Manish Benitez MD CHEMISTRY ORDERABL ES Performing Organization Address [facility] de Phone Number [facility] [place] [address] * (ABNORMAL) APTT (08/29/2019 3:10 PM EDT) PTT 132(Criti edy) 25 - 37 sec [facility] Comment: Critical Result called by ?? HERIBERTO CRITICAL Results read back by: ? Doretha Reed at 2019-08-29 16:30:19 The PTT is NOT appropriate for heparin monitoring. Use the Anti-Xa level for heparin monitoring (HEP UFH) or LMWH monitoring (HEP LMW). A PTT less than 37 seconds generally indicates adequate hemostasis. Blood specimen (specimen) 08/29/2019 3:10 PM EDT 08/29/2019 3:50 PM EDT Narrative Resulting Agency Comment Spec In Lab Manish Benitez MD HEMATOLOGY ORDERAB LES Performing Organization Address [facility] Co de Phone Number [facility] [place] [address] * (ABNORMAL) Prothrombin Time (08/29/2019 3:10 PM EDT) PT 13.3(H) 9.4 - 12.5 sec [facility] INR 1.2 [facility] Comment: An INR <2.0 [...] be appropriate depending on clinical circumstances. Blood specimen (specimen) 08/29/2019 3:10 PM EDT 08/29/2019 3:50 PM EDT Narrative Resulting Agency Comment Spec In Lab Manish Benitez MD HEMATOLOGY ORDERAB LES [facility] [place] [address] * (ABNORMAL) Basic Metabolic Panel (non-fasting) (08/29/2019 3:10 PM EDT) Glucose Lvl 83 65 - 199 mg/dL [facility] Comment:Diabetes: >=200 mg/d L plus symptoms BUN 15 8 - 18 mg/dL [facility] Creatinine 0.84 0.70 - 1.20 mg/dL [facility] [...] mg/dL [facility] Estimated GFR 81 >=60 mL/min/1. 73 m?? [facility] Comment: The eGFR was calculated using the CKD-EPI equation. As with all creatinine based estimates of kidney function, eGFR values calculated with the CKD-EPI equation are not accurate in patients with acute kidney failure, extremes of body mass or the acutely ill. [email or web address] eGFR 94 >=60 mL/min/1. 73 m?? [facility] Comment: The eGFR was calculated using the CKD-EPI equation. As with all creatinine based estimates of kidney function, eGFR values calculated with the CKD-EPI equation are not accurate in patients with acute kidney failure, extremes of body mass or the acutely ill. [email or web address] Blood specimen (specimen) 08/29/2019 3:10 PM EDT 08/29/2019 3:52 PM EDT Narrative Resulting Agency Comment Spec In Lab Manish Benitez MD CHEMISTRY ORDERABL ES [facility] [place] [address] documented in this encounter Visit Diagnoses Diagnosis Non-ST elevation myocardial infarction (NSTEMI) Acute myocardial infarction, subendocardial infarction, episode of care unspecified SOB (shortness of breath) Shortness of breath NSTEMI (non-ST elevated myocardial infarction) Acute myocardial infarction, subendocardial infarction, episode of care unspecified documented in this encounter Admitting Diagnoses Diagnosis NSTEMI (non-ST elevated myocardial infarction) Acute myocardial infarction, subendocardial infarction, episode of care unspecified documented in this encounter Administered Medications Inactive Administered Medications - up to 3 most recent administrations Medication Order MAR Action Action Date Dose Rate Site aspirin EC tablet 81 mg 81 mg, Oral, DAILY, First dose on Wed08/30/19 at 0900, Until Discontinued, Routine Given 08/30/2019 8:42 AM EDT 81 mg atorvastatin (Lipitor) tablet 80 mg 80 mg, Oral, EVERY EVENING, First dose on Wed08/29/19 at 1715, Until Discontinued, Routine Given 08/29/2019 5:01 PM EDT 80 mg clopidogreL (Plavix) tablet 75 mg 75 mg, Oral, DAILY, First dose on Wed08/30/19 at 0900, Until Discontinued, Routine Given 08/30/2019 8:42 AM EDT [address] (Cymbalta) capsule 60 mg 60 mg, Oral, NIGHTLY, First dose on Wed08/29/19 at 2100, Until Discontinued, Routine Given 08/30/2019 8:30 PM EDT 60 mg Given 08/29/2019 8:48 PM EDT 60 mg furosemide (LASIX) injection 40 mg 40 mg, Intravenous, ONCE, 1 dose, On Wed08/29/19 at 1800, Routine Given 08/29/2019 5:24 PM EDT 40 mg gabapentin (Neurontin) capsule 300 mg 300 mg, Oral, 2 TIMES DAILY, First dose on Wed08/29/19 at 2100, Until Discontinued, Routine Given 08/31/2019 8:18 AM EDT 300 mg Given 08/30/2019 8:30 PM EDT 300 mg Given 08/30/2019 8:42 AM EDT 300 mg heparin (porcine) 25,000 unit/500 mL infusion 1 dose, Starting on Wed08/29/19 at 1439, Until Wed08/29/19 at 1445, Mark Nick: aimeeinesteven override heparin (Porcine) subcutaneous injection 5,000 Units 5,000 Units, Subcutaneous, EVERY 12 HOURS SCHEDULED (2 times per day), First dose on Wed08/30/19 at 2100, Until Discontinued, Routine Given 08/31/2019 8:18 AM EDT 5,000 Units Given 08/30/2019 8:31 PM EDT 5,000 Units heparin 25,000 units in sodium chloride 0.45% 500 mL infusion 0-5,000 Units/hr (0-100 mL/hr), Intravenous, CONTINUOUS, Starting on Wed08/29/19 at 1715, Until Wed08/30/19 at 1555, BEGIN infusion at 1,000 units per hr (12 units/kg/hr). MAX INITIAL infusion rate is 1,000 units/hr. Target Heparin UFH Level (anti-Xa activity) = 0.3 - 0.7 IU/mL Start adjustment schedule 6 hours after starting infusion. If Heparin UFH Level is: - less than 0.1 IU/mL, administer PRN bolus and increase rate by 400 units per hr (4 units/kg/hr) - 0.1 - 0.29 IU/mL, administer PRN bolus and increase rate by 200 units per hr (2 units/kg/hr) - 0.3 - 0.7 IU/mL, No Change - 0.71 - 0.85 IU/mL, decrease rate by 100 units per hr (1 units/kg/hr) - 0.86 - 1.05 IU/mL, stop infusion for 30 minutes, then decrease rate by 200 units per hr (2 units/kg/hr) - Greater than 1.05 IU/mL, stop infusion for 60 minutes, then decrease rate by 300 units per hour (3 units/kg/hr) Repeat Heparin UFH Level 6 hours after initiating heparin. Then 6 hours after each dose adjustment. When 2 consecutive Heparin UFH Level within target range of 0.3 - 0.7 IU/mL, change Heparin UFH Level to once every 24 hours with A.M. labs while on heparin. RN to order required Heparin UFH Level - Per Protocol, Routine, Indication: ACS (STEMI vs NSTEMI vs UA) New Bag 08/29/2019 2:45 PM EDT 900 Units/hr 18 mL/hr perflutren protein-A microspheres (OPTISON) 0.22 mg/mL injection 0.5 mL 0.5 mL, Intravenous, ONCE PRN, 1 dose, Starting on Wed08/30/19 at 1223, Until Wed08/30/19 at 0900, for enhancement of sub-optimal echo images, Echo Lab (Intra-Procedure), Routine Given 08/30/2019 9:00 AM EDT 2.5 mLs potassium chloride ER (K-Dur/Klor-Con) tablet 40 mEq 40 mEq, Oral, ONCE, 1 dose, On Wed08/30/19 at 1045, 20 mEq tablet may be dissolved in water for administration, Routine Given 08/30/2019 10:27 AM EDT 40 mEq sodium chloride 0.9% infusion 100 mL/hr, Intravenous, CONTINUOUS, Starting on Wed08/30/19 at 1515, Until Wed08/30/19 at 1714, Recovery (Recovery-Hospital Unit) New Bag 08/30/2019 3:15 PM EDT 100 mL/hr 100 mL/hr topiramate (Topamax) tablet 100 mg 100 mg, Oral, NIGHTLY, First dose on Wed08/29/19 at 2100, Until Discontinued, DO NOT SPLIT, CRUSH OR OPEN, Routine Given 08/30/2019 8:31 PM EDT 100 mg Given 08/29/2019 8:48 PM EDT 100 mg topiramate (Topamax) tablet 50 mg 50 mg, Oral, DAILY, First dose on Wed08/30/19 at 0900, Until Discontinued, Routine Given 08/31/2019 8:17 AM EDT 50 mg Given 08/30/2019 8:43 AM EDT 50 mg documented in this encounter Active and Recently Administered Medications Times are shown in EDT. Scheduled Medication Order 08/29/2019 08/30/2019 08/31/2019 aspirin EC tablet 81 mg (CANCELED) 81 mg, Oral, DAILY, First dose on Wed08/30/19 at 0900, Until Discontinued, Routine 0842 (Given - Provider: Mark Nick RN)1357 (BANNER Hold - Provider: Admin Adt - Reason: Transfer to a Procedural area)1530 (BANNER Unhold - Provider: Admin Adt) atorvastatin (Lipitor) tablet 80 mg (CANCELED) 80 mg, Oral, EVERY EVENING, First dose on Wed08/29/19 at 1715, Until Discontinued, Routine 1701 (Given - Provider: Mark Nick RN) 1357 (BANNER Hold - Provider: Admin Adt - Reason: Transfer to a Procedural area)1530 (BANNER Unhold - Provider: Admin Adt) clopidogreL (Plavix) tablet 75 mg (CANCELED) 75 mg, Oral, DAILY, First dose on Wed08/30/19 at 0900, Until Discontinued, Routine 0842 (Given - Provider: Mark Nick RN)1357 ([facility]ANNER Hold - Provider: Admin Adt - Reason: Transfer to a Procedural area)1530 (BANNER Unhold - Provider: Admin Adt) DULoxetine DR (Cymbalta) capsule 60 mg 60 mg, Oral, NIGHTLY, First dose on Wed08/29/19 at 2100, Until Discontinued, Routine 2048 (Given - Provider: Efrain Verma RN) 1357 ([facility]ANNER Hold - Provider: Admin Adt - Reason: Transfer to a Procedural area)1530 (BANNER Unhold - Provider: Admin Adt)2030 (Given - Provider: Gauri Arroyo RN) furosemide (LASIX) injection 40 mg (COMPLETED) 40 mg, Intravenous, ONCE, 1 dose, On Wed08/29/19 at 1800, Routine 1724 (Given - Provider: Mark Nick RN) gabapentin (Neurontin) capsule 300 mg 300 mg, Oral, 2 TIMES DAILY, First dose on Wed08/29/19 at 2100, Until Discontinued, Routine 2048 (Given - Provider: Efrain Verma RN) 0842 (Given - Provider: Mark Nick RN)1357 (MAY Hold - Provider: Admin Adt - Reason: Transfer to a Procedural area)153 (MAY Unhold - Provider: Admin Adt)2029 (Given - Provider: Gauri Arroyo, ERWIN) 0818 (Given - Provider: Maia Vásquez, ERWIN) heparin (Porcine) subcutaneous injection 5,000 Units 5,000 Units, Subcutaneous, EVERY 12 HOURS SCHEDULED (2 times per day), First dose on Wed08/30/19 at 2100, Until Discontinued, Routine 2030 (Given - Provider: Gauri Arroyo RN) 0818 (Given - Provider: Maia Vásquez RN) potassium chloride ER (K-Dur/Klor-Con) tablet 40 mEq (COMPLETED) 40 mEq, Oral, ONCE, 1 dose, On Wed08/30/19 at 1045, 20 mEq tablet may be dissolved in water for administration, Routine 1027 (Given - Provider: Mark Nick RN) topiramate (Topamax) tablet 100 mg 100 mg, Oral, NIGHTLY, First dose on Wed08/29/19 at 2100, Until Discontinued, DO NOT SPLIT, CRUSH OR OPEN, Routine 2047 (Given - Provider: Efrain Verma RN) 1357 (MAY Hold - Provider: Admin Adt - Reason: Transfer to a Procedural area)153 (BANNER Unhold - Provider: Admin Adt)2030 (Given - Provider: Gauri Arroyo, EWRIN) topiramate (Topamax) tablet 50 mg 50 mg, Oral, DAILY, First dose on Wed08/30/19 at 0900, Until Discontinued, Routine 0843 (Given - Provider: Mark Nick RN)1357 (MAY Hold - Provider: Admin Adt - Reason: Transfer to a Procedural area)1530 (MAY Unhold - Provider: Admin Adt) 0817 (Given - Provider: Maia Vásquez RN) Continuous Medication Order 08/29/2019 08/30/2019 08/31/2019 heparin 25,000 units in sodium chloride 0.45% 500 mL infusion (CANCELED)(Linked Group 1) 0-5,000 Units/hr (0-100 mL/hr), Intravenous, CONTINUOUS, Starting on Wed08/29/19 at 1715, Until Wed08/30/19 at 1555, BEGIN infusion at 1,000 units per hr (12 units/kg/hr). MAX INITIAL infusion rate is 1,000 units/hr. Target Heparin UFH Level (anti-Xa activity) = 0.3 - 0.7 IU/mL Start adjustment schedule 6 hours after starting infusion. If Heparin UFH Level is: - less than 0.1 IU/mL, administer PRN bolus and increase rate by 400 units per hr (4 units/kg/hr) - 0.1 - 0.29 IU/mL, administer PRN bolus and increase rate by 200 units per hr (2 units/kg/hr) - 0.3 - 0.7 IU/mL, No Change - 0.71 - 0.85 IU/mL, decrease rate by 100 units per hr (1 units/kg/hr) - 0.86 - 1.05 IU/mL, stop infusion for 30 minutes, then decrease rate by 200 units per hr (2 units/kg/hr) - Greater than 1.05 IU/mL, stop infusion for 60 minutes, then decrease rate by 300 units per hour (3 units/kg/hr) Repeat Heparin UFH Level 6 hours after initiating heparin. Then 6 hours after each dose adjustment. When 2 consecutive Heparin UFH Level within target range of 0.3 - 0.7 IU/mL, change Heparin UFH Level to once every 24 hours with A.M. labs while on heparin. RN to order required Heparin UFH Level - Per Protocol, Routine, Indication: ACS (STEMI vs NSTEMI vs UA) 1445 (New Bag - Provider: Mark Nick RN) 1350 (Stopped - Provider: Mark Nick RN)1357 (MAY Hold - Provider: Admin Adt - Reason: Transfer to a Procedural area)1530 (MAY Unhold - Provider: Admin Adt) sodium chloride 0.9% infusion () 100 mL/hr, Intravenous, CONTINUOUS, Starting on Wed08/30/19 at 1515, Until Wed08/30/19 at 1714, Recovery (Recovery-Hospital Unit) 1515 (New Bag - Provider: Mark Nick RN)1715 (Stopped - Provider: Mark Nick RN) PRN Medication Order 08/29/2019 08/30/2019 08/31/2019 acetaminophen (Tylenol) tablet 650 mg 650 mg, Oral, EVERY 4 HOURS PRN, Starting on Wed08/29/19 at 1632, Until Wed08/31/19 at 2024, Pain, Headaches, Maximum dose of acetaminophen is 4000 mg from all sources in 24 hours., Routine 1357 (MAY Hold - Provider: Admin Adt - Reason: Transfer to a Procedural area)1530 (MAY Unhold - Provider: Admin Adt) fentaNYL 50 mcg/mL multi-dose injection (CANCELED) ONCE PRN, Starting on Wed08/30/19 at 1405, Until Wed08/30/19 at 1530, Intra-Operative (Intra-Procedure), Routine 1405 (Given - Provider: Bro King RN) iohexoL (OMNIPAQUE) 350 mg/mL solution (CANCELED) ONCE PRN, Starting on Wed08/30/19 at 1428, Until Wed08/30/19 at 1530, Cath (Intra-Procedure), Routine 1428 (Given - Provider: Jessee Malone MD) midazolam (PF) (VERSED) multi-dose injection (CANCELED) ONCE PRN, Starting on Wed08/30/19 at 1404, Until Wed08/30/19 at 1530, Cath (Intra-Procedure), Routine 1404 (Given - Provider: Bro King RN) nitroGLYcerin (Nitrostat) disintegrating tablet 0.4 mg 0.4 mg, Sublingual, EVERY 5 MIN PRN, Starting on Wed08/29/19 at 1632, Until Wed08/31/19 at 2024, Chest pain, May repeat every 5 minutes for a total of three doses. Notify provider if chest pain not relieved with nitroglycerin. Do not administer nitroglycerin if the patient has received or taken phosphodiesterase (PDE-5) inhibitors such as sildenafil, tadalafil or vardenafil within the last 24 to 72 hours., Routine 1357 (MAY Hold - Provider: Admin Adt - Reason: Transfer to a Procedural area)1530 (MAY Unhold - Provider: Admin Adt) perflutren protein-A microspheres (OPTISON) 0.22 mg/mL injection 0.5 mL (COMPLETED) 0.5 mL, Intravenous, ONCE PRN, 1 dose, Starting on Wed08/30/19 at 1223, Until Wed08/30/19 at 0900, for enhancement of sub-optimal echo images, Echo Lab (Intra-Procedure), Routine 0900 (Given - Provider: Jaspreet Oneil) verapamiL (ISOPTIN) injection (CANCELED) ONCE PRN, Starting on Wed08/30/19 at 1414, Until Wed08/30/19 at 1530, Administer over 2 Minutes, Cath (Intra-Procedure) 1414 (Given - Provider: Jessee Malone MD) zolpidem (Ambien) tablet 5 mg 5 mg, Oral, NIGHTLY PRN, Starting on Wed08/29/19 at 1632, Until Wed08/31/19 at 2025, Sleep, insomnia, Routine 1357 (MAY Hold - Provider: Admin Adt - Reason: Transfer to a Procedural area)1530 (MAY Unhold - Provider: Admin Adt) Linked Groups Order Group 1: heparin (porcine) injection 0-4,000 Units (CANCELED) 0-4,000 Units, Intravenous, BOLUS PER HEPARIN PROTOCOL, Starting on Wed08/29/19 at 1616, Until Wed08/30/19 at 1555, Per Protocol, START ADJUSTMENT SCHEDULE 6 HOURS AFTER STARTING INFUSION Heparin UFH Level between 0.1 - 0.29 IU/mL: Bolus 2,000 units Heparin UFH Level less than 0.1 IU/mL: Bolus 4,000 units, Routine And heparin 25,000 units in sodium chloride 0.45% 500 mL infusion (CANCELED)Jump to med 0-5,000 Units/hr (0-100 mL/hr), Intravenous, CONTINUOUS, Starting on Wed08/29/19 at 1715, Until Wed08/30/19 at 1555, BEGIN infusion at 1,000 units per hr (12 units/kg/hr). MAX INITIAL infusion rate is 1,000 units/hr. Target Heparin UFH Level (anti-Xa activity) = 0.3 - 0.7 IU/mL Start adjustment schedule 6 hours after starting infusion. If Heparin UFH Level is: - less than 0.1 IU/mL, administer PRN bolus and increase rate by 400 units per hr (4 units/kg/hr) - 0.1 - 0.29 IU/mL, administer PRN bolus and increase rate by 200 units per hr (2 units/kg/hr) - 0.3 - 0.7 IU/mL, No Change - 0.71 - 0.85 IU/mL, decrease rate by 100 units per hr (1 units/kg/hr) - 0.86 - 1.05 IU/mL, stop infusion for 30 minutes, then decrease rate by 200 units per hr (2 units/kg/hr) - Greater than 1.05 IU/mL, stop infusion for 60 minutes, then decrease rate by 300 units per hour (3 units/kg/hr) Repeat Heparin UFH Level 6 hours after initiating heparin. Then 6 hours after each dose adjustment. When 2 consecutive Heparin UFH Level within target range of 0.3 - 0.7 IU/mL, change Heparin UFH Level to once every 24 hours with A.M. labs while on heparin. RN to order required Heparin UFH Level - Per Protocol, Routine, Indication: ACS (STEMI vs NSTEMI vs UA) documented in this encounter Care Teams Lab Nurse Relationship Specialty Start Date End Date Tim Rogers DNP PCP - General Family Medicine 08/28/19 06/08/21 documented as of this encounter
--- OUTSIDE RECORDS SUMMARY | 2023-09-20 14:40 | XMS_ITS | Encounter Summary ---
Author Organization [facility] [place] [address] Care Team Providers Care [employer] Name Role Phone Tim Rogers DNP Primary Care Provider [phone] Encounter Details Date Type Department Care Team (Late st Contact Info) Description 10/21/2020 [place] [phone] Beto Miller MD [facility] [place] [address] Social History Tobacco Use Types Packs/Day Years [...] encounter Miscellaneous Notes * Telephone Encounter - Beto Miller MD - 10/21/2020 3:48 PM EDT Pulmonary Telephone call with Indira Roque on Wednesday 10/18. Ongoing dyspnea on exertion along with new lightheadedness and palpitations. We reviewed her chavis pulmonary test so far including ?? CT chest from April 2020 largely unremarkable - the adenopathy seen on her August 2019 CT looksto have improved. ?? PFTs July 2020 mild restriction but normal diffusion ?? No clinical response to a trial of corticosteroid ?? Recent lab work shows resolution of the previously seen eosinophilia, KATHRINE 1: 80, normal SSA, SSB, Alcantar antibody, POACHER OPERATOR antibody, ANCA, MPO antibody, MA-3 antibody, serum RITCHIE, CBC, BMP and CRP ?? Echocardiogram shows severe dilatation of the left atrium August 2019 ?? Normal coronary arteries on cardiac catheterization August 2019 The bottom line is that I do not have a satisfactory explanation for Indira's ongoing dyspnea on exertion. New symptom of palpitations and lightheadedness makes me wonder about the possibility of arrhythmia as a component to her symptoms. There are many tests we could consider here including cardiac rhythm monitoring, right heart catheterization and cardiopulmonary exercise test. I think it makes sense to start with a noninvasive testsuch as rhythm monitoring followed by an exercise test and a right heart cath if still in doubt about etiology of symptoms. I will contact her with the results of the Zio patch recording Orders Placed This Encounter Procedures ??? Ziopatch 48 Hrs-15 Days Standing Status: Future Standing Expiration Date: 04/23/2021 Scheduling Instructions: Please call patient to schedule Order Specific Question: Where will study be performed? Answer: [facility] Order Specific Question: Apply for 7 or 14 days? Answer: 14 Beto Miller MD documented in this encounter Plan of Treatment Upcoming Encounters Date Type Department Care Team (Late st Contact Info) Description 10/08/2023 8:30 AM EDT Tech [place] [phone] Jose Cook 10/08/2023 9:30 AM EDT Office [place] [phone] MD [facility] [place] [place] [address] 10/21/2023 10:30 AM EDT Appointment [place] [phone] Mary Reyes APRN [facility] [place] [address] 10/21/2023 11:30 AM EDT Appointment Nuclear Medicine at [place] [phone] Mary Reyes [facility] [place] [address] 10/21/2023 12:30 PM EDT Appointment [place] [address] Mary Reyes [facility] [place] [address] 10/21/2023 1:30 PM EDT Appointment [place] [address] Mary Reyes [facility] [place] [address] 10/21/2023 2:30 PM EDT Appointment [place] [address] Mary Reyes [facility] [place] [address] 10/26/2023 4:00 PM EDT Office Visit Cardiology at [address] [phone] Jaspreet Kinsey MD [facility] [place] [address] 10/28/2023 9:00 AM EDT Office [place] [address] 10/29/2023 10:00 AM EDT Clinical Support [place] [address] 10/29/2023 10:15 AM EDT Procedure [place] [address] 11/01/2023 5:00 PM EDT Office Visit Gastroenterology at [place] [phone] Selene Browning, PhD [facility] [address] 11/22/2023 4:40 PM EDT Office Visit Cardiology at [place] [phone] Porsha Mcdaniels MD [facility] [address] 12/13/2023 10:00 AM EDT Clinical [place] [phone] Lucero Romero, [place] [facility] [place] [address] documented as of this encounter Visit Diagnoses Diagnosis Palpitations documented in this encounter Care Teams [employer] Relationship Specialty Start Date End Date Tim Rogers DNP PCP - General Family Medicine 08/28/19 06/08/21 documented as of this encounter
--- OUTSIDE RECORDS SUMMARY | 2023-09-20 14:40 | XMS_ITS | Encounter Summary ---
Author Organization [facility] [place] [address] Care Team Providers Care Silviculture Forester Name Role Phone Tim Rogers DNP Primary Care Provider Encounter Details Date Type Department Care Team (Late st Contact Info) Description 04/26/2020 Orders [place] [phone] Bull Fitzgerald MD [facility] [place] [address] Dyspnea, unspecified type (Primary Dx) Social History Tobacco Use Types Packs/Day Years [...] AM EDT Tech [place] [phone] Jose Cook 10/08/2023 9:30 AM EDT Office [place] [phone] MD [facility] [place] [address] 10/21/2023 10:30 AM EDT Appointment Nuclear Medicine at [address] Mary Reyes [facility] [place] [address] 10/21/2023 11:30 AM EDT Appointment Nuclear Medicine at [address] Mary Reyes [facility] [place] [address] 10/21/2023 12:30 PM EDT Appointment Nuclear Medicine at [place] [phone] Mary Reyes [facility] [place] [address] 10/21/2023 1:30 PM EDT Appointment [place] [phone] Mary Reyes [facility] [place] [address] 10/21/2023 2:30 PM EDT Appointment [place] [phone] Mary Reyes [facility] [place] [address] 10/26/2023 4:00 PM EDT Office Visit Cardiology at [address] [phone] Jaspreet Kinsey MD [facility] [place] [address] 10/28/2023 9:00 AM EDT Office [place] [address] 10/29/2023 10:00 AM EDT Clinical [place] [address] 10/29/2023 10:15 AM EDT Procedure [place] [address] 11/01/2023 5:00 PM EDT Office [place] [phone] Selene Browning, PhD [facility] [place] [address] 11/22/2023 4:40 PM EDT Office Visit Cardiology at [address] [phone] Porsha Mcdaniels MD [facility] [place] [address] 12/13/2023 10:00 AM EDT Clinical [place] [phone] Lucero Romero, ALVA [facility] [place] [address] documented as of this encounter Results * Pulmonary Function Testing (08/01/2020 12:32 PM EDT) FVC Actual Pre-BD 2.68 L COMPAS PFT FVC Pre-BD % of Predicted 77 % COMPAS PFT FVC Predicted 3.49 L COMPAS PFT FVC Pre-BD Z-Score -1.73 COMPAS PFT FVC Lower Limits of Normal 2.72 L COMPAS PFT FEV1 Actual Pre-BD 2.29 L COMPAS PFT FEV1 Pre-BD % of Predicted 82 % COMPAS PFT FEV1 Predicted 2.78 L COMPAS PFT FEV1 Pre-BD Z-Score -1.31 COMPAS PFT FEV1 Lower Limits of Normal 2.16 L COMPAS PFT FEV1 / FVC Actual Pre-BD 85 % COMPAS PFT FEV1/FVC Pre-BD Z-Score 0.84 COMPAS PFT FEV1 / FVC LLN 69 % COMPAS PFT [id number] Actual Pre-BD 3.14 L/s COMPAS PFT [id number] Pre-BD % of Predicted 116 % COMPAS PFT [id number] Predicted 2.70 L/s COMPAS PFT [id number] Pre-BD Z-Score 0.51 COMPAS PFT FVC Actual Post-BD 2.54 L COMPAS PFT FVC Post-BD % of Predicted 73 % COMPAS PFT FVC Post-BD Z-Score -2.04 COMPAS PFT FEV1 Actual Post-BD 2.31 L COMPAS PFT FEV1 Post-BD % of Predicted 83 % COMPAS PFT FEV1 Post-BD Z-Score -1.25 COMPAS PFT FEV1 / FVC Actual Post-BD 91 % COMPAS PFT FEV1 / FVC LLN 69 % COMPAS PFT FEV1/FVC Post-BD Z-Score 1.94 COMPAS PFT [id number] Actual Post-BD 4.26 L/s COMPAS PFT [id number] Post-BD % of Predicted 158 % COMPAS PFT [id number] Post-BD Z-Score 1.67 COMPAS PFT DLCO Hb Actual Pre-BD 17.05 mL/min/mmHg COMPAS PFT DLCO Hb Pre-BD % of Predicted 80 % COMPAS PFT DLCO Hb Pre-BD Z-Score -1.40 COMPAS PFT DLCO Hb Predicted 21.35 mL/min/mmHg COMPAS PFT DLCO UNC ACT PRE-BD 17.05 mL/min/mmHg COMPAS PFT DLCO UNC PRE-BD % of PRED 80 % COMPAS PFT DLCO UNC PRE-BD Z-SCORE -1.40 % COMPAS PFT DLCO UNC Predicted 21.35 mL/min/mmHg COMPAS PFT DLCO/VA Actual Pre-BD 4.35 mL/min/mmHg /L COMPAS PFT DLCO/VA Pre-BD % of Predicted 101 % COMPAS PFT DLCO/VA Pre-BD Z-Score 0.05 COMPAS PFT DLCO/VA Predicted 4.32 mL/min/mmHg /L COMPAS PFT Narrative COMPAS PFT - 08/01/2020 12:32 PM EDT FINDINGS: FEV1 and FEV1/FVC are normal, FVC is reduced. Diffusion capacity is normal. IMPRESSION: Spirometry suggests a mild restrictive defect, which could be confirmed by measurement of lung volumes, if clinically indicated. ??There was no significant change postbronchodilator. ??Compared to the last study on 08/31/2019, the FVC and FEV1 are not significantly changed. Procedure Note NEW, GLATT - 08/01/2020 FINDINGS: FEV1 and FEV1/FVC are normal, FVC is reduced. Diffusion capacityis normal. IMPRESSION: Spirometry suggests a mild restrictive defect, which could beconfirmed by measurement of lung volumes, if clinically indicated. There was nosignificant change postbronchodilator. Compared to the last study on 08/31/2019, the FVC andFEV1 are not significantly changed. Bull Fitzgerald MD PFT ORDERABLES COMPAS PFT documented in this encounter Visit Diagnoses Diagnosis Dyspnea, unspecified type- Primary Dyspnea, unspecified type documented in this encounter Care Teams [employer]ure [employer] Relationship Specialty Start Date End Date Tim Rogers DNP PCP - General Family Medicine 08/28/19 06/08/21 documented as of this encounter
--- OUTSIDE RECORDS SUMMARY | 2023-09-20 14:40 | XMS_ITS | Encounter Summary ---
[place] [address] Care Team Providers Care Crushing Foreman Name Role Phone Tim Rogers DNP Primary Care Provider [phone] Reason for Visit * Reason Onset Date Comments Other 10/25/2020 Regarding Ziopat ch Encounter Details Date Type Department Care Team (Late st Contact Info) Description 10/25/2020 Telephone [place] [phone] Olive Gonzales RN Other (Regarding Ziopatch) Social History Tobacco Use Types Packs/Day Years [...] encounter Miscellaneous Notes * Telephone Encounter - Olive Gonzales RN - 10/25/2020 1:11 PM EDT I have received a VM from Pt in regards to Ziopatch orders placed by Dr. Miller. I have attempted to call Pt back at both numbers on file. I have LVM for Pt informing her that she has to call Cardiology, Cardiology will not reach out to Pt. Pt must call [phone] to request Ziopatch. Olive Gonzales RN Department of Pulmonary 5C, [facility] / Pager: [phone] documented in this encounter Plan of Treatment Upcoming Encounters Date Type Department Care Team (Late st Contact Info) Description 10/08/2023 8:30 AM EDT Tech Visit Vascular Lab at [place] [phone] Jose Cook 10/08/2023 9:30 AM EDT Office [place] [phone] [facility] [place] [place] [address] 10/21/2023 10:30 AM EDT Appointment Nuclear Medicine at [place] [phone] Mary Reyes [facility] [place] [address] 10/21/2023 11:30 AM EDT Appointment Nuclear Medicine at [place] [phone] Mary Reyes [facility] [place] [address] 10/21/2023 12:30 PM EDT Appointment Nuclear Medicine at [place] [phone] Mary Reyes [facility] [place] [address] 10/21/2023 1:30 PM EDT Appointment Nuclear Medicine at [place] [phone] Mary Reyes, [facility] [place] [address] 10/21/2023 2:30 PM EDT Appointment Nuclear Medicine at [place] [phone] [facility] [place] [address] 10/26/2023 4:00 PM EDT Office Visit Cardiology at [address] [phone] Jaspreet Kinsey MD [facility] [place] [address] 10/28/2023 9:00 AM EDT Office [place] [address] 10/29/2023 10:00 AM EDT Clinical [place] [address] 10/29/2023 10:15 AM EDT Procedure [place] [address] 11/01/2023 5:00 PM EDT Office Visit Gastroenterology at [place] [phone] Selene Browning, PhD [facility] [place] [address] 11/22/2023 4:40 PM EDT Office Visit Cardiology at [address] [phone] [facility] [place] [address] 12/13/2023 10:00 AM EDT Clinical Support [place] [address] Lucero Romero, [facility] [address] documented as of this encounter Visit Diagnoses Not on filedocumented in this encounter Care Teams Crushing Foreman Relationship Specialty Start Date End Date Tim Rogers DNP PCP - General Family Medicine 08/28/19 06/08/21 documented as of this encounter
--- OUTSIDE RECORDS SUMMARY | 2023-09-20 14:40 | XMS_ITS | Encounter Summary ---
Author Organization [facility] [place] [address] Care Team Providers Care Sock Knitting Machine Operator Name Role Phone Tim Rogers DNP Primary Care Provider [phone] Encounter Details Date Type Department Care Team (Latest Contact Info) Description 08/01/2020 11:42 AM EDT - 08/01/2020 11:59 PM EDT Hospital En[place] [phone] Dyspnea, unspecified type Discharge Disposition: Home Social History [...] as needed. fluticasone propionate (FLONASE) 50 mcg/actuation [place], Suspension 1 spray by Each Nare route [...] 4 hours as needed. Use with spacer predniSONE (Deltasone) 20 mg TabletIndications:Asthma, chronic, moderate persistent, uncomplicated Take 2 tablets by mouth daily for 5 days. 10 tablet 1 08/01/2020 08/06/2020 Emgality Pen 120 mg/mL Pen Injector INJECT 2ML ONCE SINGLE DOSE ONCE 06/28/2020 07/23/2021 traZODone (Desyrel) 50 mg Tablet TAKE 1 TO 2 TABLETS BY MOUTH AT BEDTIME 07/05/2020 11/17/2022 zafirlukast (Accolate) 20 mg Tablet TAKE ONE TABLET BY MOUTH TWICE A DAY 04/10/2020 07/23/2021 budesonide-formoteroL (SYMBICORT) 160-4.5 mcg/actuation HFA Aerosol Inhaler Inhale into the lungs. 06/12/2020 07/23/2021 diclofenac (VOLTAREN) 1 % Gel APPLY TO [...] AM EDT Tech [place] [phone] Jose Cook 10/08/2023 9:30 AM EDT Office [place] [address] MD [facility] DR [place] [address] 10/21/2023 10:30 AM EDT Appointment Nuclear Medicine at [place] [address] Mary Reyes, [facility] [place] [address] 10/21/2023 11:30 AM EDT Appointment Nuclear Medicine at [address] Mary Reyes, [facility] [address] 10/21/2023 12:30 PM EDT Appointment Nuclear Medicine at [place] [phone] Mary Reyes [facility] [place] [address] 10/21/2023 1:30 PM EDT Appointment Nuclear Medicine at [place] [phone] Mary Reyes, [facility] [place] [address] 10/21/2023 2:30 PM EDT Appointment [place] [address] Mary Reyes [facility] [address] 10/26/2023 4:00 PM EDT Office Visit Cardiology at [address] [phone] Jaspreet Kinsey MD [facility] [place] [address] 10/28/2023 9:00 AM EDT Office [place] [address] 10/29/2023 10:00 AM EDT Clinical [place] [address] 10/29/2023 10:15 AM EDT Procedure [place] [address] 11/01/2023 5:00 PM EDT Office [place] [phone] Selene Browning, PhD [facility] [place] [address] 11/22/2023 4:40 PM EDT Office Visit Cardiology at [address] [phone] Porsha Mcdaniels MD [facility] [place] [address] 12/13/2023 10:00 AM EDT Clinical [place] [phone] Lucero Romero, [facility] [place] [address] documented as of this encounter Procedures Procedure Name Priority Date/Time Associated Diagnosis Comments COMMON PULMONARY FUNCTION TEST Routine 08/01/2020 12:32 PM EDT Dyspnea, unspecified type documented in this encounter Results * Pulmonary Function Testing [...] / FVC LLN 69 % COMPAS PFT UCS16-94 Actual Pre-BD 3.14 L/s COMPAS PFT QKX96-73 Pre-BD % of Predicted 116 % COMPAS PFT VPT21-79 Predicted 2.70 L/s COMPAS PFT RMF94-78 Pre-BD Z-Score 0.51 COMPAS PFT FVC Actual [...] PFT FEV1/FVC Post-BD Z-Score 1.94 COMPAS PFT DIY06-90 Actual Post-BD 4.26 L/s COMPAS PFT LUT55-36 Post-BD % of Predicted 158 % COMPAS PFT QAB41-01 Post-BD Z-Score 1.67 COMPAS PFT DLCO Hb [...] this encounter Visit Diagnoses Diagnosis Dyspnea, unspecified type documented in this encounter Care Teams Sock Knitting Machine Operator Relationship Specialty Start Date End Date Tim Rogers DNP PCP - General Family Medicine 08/28/19 06/08/21 documented as of this encounter
--- OUTSIDE RECORDS SUMMARY | 2023-09-20 14:40 | XMS_ITS | Encounter Summary ---
[place] [address] Care Team Providers Care Senior Sales Operations Analyst Name Role Phone Tim Rogers DNP Primary Care Provider [phone] Reason for Visit * Reason Onset Date Comments Other 10/18/2020 Pt requesting ca ll back from MD Encounter Details Date Type Department Care Team (Late st Contact Info) Description 10/18/2020 Telephone [place] [phone] Olive Gonzlaes RN Other (Pt requesting call back from MD) Social History Tobacco Use Types Packs/Day Years [...] Telephone Encounter - Olive Gonzales RN - 10/18/2020 10:30 AM EDT Pt has called and LVM in regards to recent lab work that has be done requested by Dr. Miller. Pt isrequesting a call back to get the results of lab work. She requests call back on work phone. Olive Gonzales RN Department of Pulmonary 5C, [facility] / Pager: [phone] documented in this encounter Plan of Treatment Upcoming Encounters Date Type Department Care Team (Late st Contact Info) Description 10/08/2023 8:30 AM EDT Tech Visit Vascular Lab at [place] [phone] Jose Cook 10/08/2023 9:30 AM EDT Office Visit [place] [phone] MD [facility] [place] [address] 10/21/2023 10:30 AM EDT Appointment Nuclear Medicine at [place] [phone] Mary Reyes [facility] [place] [address] 10/21/2023 11:30 AM EDT Appointment Nuclear Medicine at [place] [phone] Mary Reyes [facility] [place] [address] 10/21/2023 12:30 PM EDT Appointment [place] [phone] Mary Reyes [facility] [place] [address] 10/21/2023 1:30 PM EDT Appointment [place] [phone] [address] [facility] [place] [address] 10/21/2023 2:30 PM EDT Appointment Nuclear Medicine at [place] [phone] Mary Reyes APRN [facility] [place] [place] [address] 10/26/2023 4:00 PM EDT Office Visit Cardiology at [address] [phone] Jaspreet Kinsey MD [facility] [place] [address] 10/28/2023 9:00 AM EDT Office [place] [address] 10/29/2023 10:00 AM EDT Clinical [place] [address] 10/29/2023 10:15 AM EDT Procedure [place] [address] 11/01/2023 5:00 PM EDT Office Visit Gastroenterology at [place] [phone] Selene Browning, PhD [facility] [place] [address] 11/22/2023 4:40 PM EDT Office Visit Cardiology at [address] [phone] Porsha Mcdaniels MD [facility] [place] [address] 12/13/2023 10:00 AM EDT Clinical Support [place] [address] Lucero Romero, [facility] [place] [address] documented as of this encounter Visit Diagnoses Not on filedocumented in this encounter Care Teams Senior Sales Operations Analyst Relationship Specialty Start Date End Date Tim Rogers DNP PCP - General Family Medicine 08/28/19 06/08/21 documented as of this encounter
--- OUTSIDE RECORDS SUMMARY | 2023-09-20 14:40 | XMS_ITS | Encounter Summary ---
Author Organization [facility] [place] [address] Care Team Providers Care Music Promoter Name Role Phone Tim Rogers DNP Primary Care Provider Encounter Details Date Type Department Care Team (Late st Contact Info) Description 05/06/2020 Telephone [place] [phone] Virginia Marc Social History Tobacco Use Types Packs/Day Years [...] AM EDT Tech [place] [phone] Jose Cook 10/08/2023 9:30 AM EDT Office [place] [phone] MD [facility] [place] [address] 10/21/2023 10:30 AM EDT Appointment [place] [address] Mary Reyes [facility] [place] [address] 10/21/2023 11:30 AM EDT Appointment [place] [address] Mary Reyes [facility] [place] [address] 10/21/2023 12:30 PM EDT Appointment [place] [address] Mary Reyes [facility] [place] [address] 10/21/2023 1:30 PM EDT Appointment [place] [address] Mary Reyes [facility] [place] [address] 10/21/2023 2:30 PM EDT Appointment [place] [address] Mary Reyes [facility] [place] [address] 10/26/2023 4:00 PM EDT Office Visit Cardiology at [address] [phone] Jaspreet Kinsey MD [facility] [place] [address] 10/28/2023 9:00 AM EDT Office Visit [place] [address] 10/29/2023 10:00 AM EDT Clinical Support [place] [address] 10/29/2023 10:15 AM EDT Procedure visit [place] [address] 11/01/2023 5:00 PM EDT Office [place] [address] Selene Browning, PhD [facility] [place] [address] 11/22/2023 4:40 PM EDT Office Visit Cardiology at [address] [phone] Porsha Mcdaniels MD [facility] [place] [address] 12/13/2023 10:00 AM EDT Clinical [place] [address] Lucero Romero, [facility] [place] [address] documented as of this encounter Visit Diagnoses Not on filedocumented in this encounter Care Teams Music Promoter Relationship Specialty Start Date End Date Tim Rogers DNP PCP - General Family Medicine 08/28/19 06/08/21 documented as of this encounter
--- OUTSIDE RECORDS SUMMARY | 2023-09-20 14:40 | XMS_ITS | Encounter Summary ---
Author Organization [facility] [place] [address] Care Team Providers Care Ignition Specialist Name Role Phone Tim Rogers DNP Primary Care Provider [phone] Reason for Visit * Reason Comments Referral Dyspnea On Exertion * Consultation (Routine) - Specialty Diagnoses / Procedures Referred By Jayant harris Referred To Contact Pulmonology Diagnoses Other forms of dyspnea Virginia Neal MD [facility] [address] [place] [address] [facility] Pulmonology [address] [place] [phone] Referral ID Status Reason Start Date Expiration Date V isits Requested Visits Authorized [id number] Consult, [facility] PCP Updated and/or Approved 04/05/2020 10/02/2020 6 6 Encounter Details Date Type Department Care Team (Latest Contact Info) Description 08/01/2020 1:00 PM EDT Office [place] [address] Beto Miller MD [facility] [place] [address] Asthma, chronic, moderate persistent, uncomplicated Social History Tobacco Use Types Packs/Day Years [...] Sign Reading Time Taken Comments Blood Pressure 116/63 08/01/2020 1:12 PM EDT Pulse 74 08/01/2020 1:12 PM EDT Temperature 36.2 ??C (97.1 ??F) 08/01/2020 1:12 PM ED T Respiratory Rate 24 08/01/2020 1:12 PM EDT Oxygen Saturation 100% 08/01/2020 1:12 PM EDT Inhaled Oxygen Concentration - - Weight 102 kg (224 lb 13.9 oz) 08/01/2020 1:12 P M EDT Height 164 cm (5' 4.57) 08/01/2020 1:12 PM EDT Body Mass Index 37.92 08/01/2020 1:12 PM EDT documented in this encounter Progress Notes * Beto Miller MD - 08/01/2020 1:00 PM EDT [facility] Section of Pulmonary Medicine Outpatient Consultation Date of Encounter: 08/01/2020 Referring Provider: Virginia Neal Md [address] [place] [address] PCP: Tim Rogers APRN [address] [place] [address] Reason for Consult: I was asked to evaluate this patient for dyspnea on exertion I have personally interviewed and examined the patient. I have independently viewed her radiographic studies, pulmonary function testing and laboratory data. HPI: I met Loida in the office today. She describes an approximately 10-year history of seasonal allergies including a runny nose, itchy eyes, nasal congestion all occurring in the spring and the fall. She had some allergy testing -skin prick -around 2010 and I reviewed these data. Interestingly those were negative but her seasonal allergies have persisted and in fact it got worse over time. She also describes sensitivity to some animals such as certain cats and occasionally has atopic symptoms when around strong fragrances. 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 In the last couple of years she has increasing chronic cough productive of a small amount of white or yellow sputum. She is increasingly dyspneic on exertion and on a bad day is short of breath to the point of not being able to talk after climbing 1-2 flights of stairs. For a provisional diagnosis of asthma she has tried a couple of medications including zafirlukast (which does not seem to have helped much) and albuterol. Albuterol if taken, at the time when her symptoms are most severe, does seem to help a little bit but using it regularly does not help much. We reviewed an episode in August 2019 when her symptoms were most severe. She went to a local emergency room being unable to breathe and was sent to [facility] for the possibility of non-ST elevation myocardial infarction. Her BNP was slightly elevated but her troponin and CK were normal and she was discharged. Interestingly her lab work of the time was significant for 7 to 9% peripheral eosinophilia. She said she felt no better after a couple of days in the hospital and she was not given any steroid therapy. She does have a history of obstructive sleep apnea and uses CPAP on a regular basis. She has had a couple of CT scans in the last year one of which I could review today Review of Systems: A total of 10 systems were reviewed and were negative other than as listed below: Past Medical History: Past Medical History: Diagnosis Date ??? Asthma ??? Depression ??? Endometriosis S/p hysterectomy ??? Insomnia ??? Migraine ??? Obesity (BMI 30-39.9) ??? MARYLOU on CPAP ??? Seasonal allergies Past Surgical History: No past surgical history on file. Medications: Current Outpatient Medications Medication Sig Dispense Refill ??? Emgality Pen 120 mg/mL Pen Injector INJECT 2ML ONCE SINGLE DOSE ONCE ??? fluticasone propionate (FLONASE) 50 mcg/actuation [place], Suspension 1 spray by Each Nare route daily. ??? gabapentin (Neurontin) 300 mg Capsule Take 300 mg by mouth 2 times daily. ??? hydrOXYzine (Atarax) 25 mg Tablet Take 25 mg by mouth every 6 hours as needed (Headache). ??? topiramate (TOPAMAX) 50 mg Tablet Take 50 mg by mouth 2 times daily. 50 mg in the morning, 100 mg at bedtime ??? DULoxetine (CYMBALTA) 60 mg capsule Take 60 mg by mouth daily. ??? albuterol (PROVENTIL HFA;VENTOLIN HFA) 90 mcg/Actuation inhaler Inhale 2 puffs into the lungs every 4 hours as needed. Use with spacer ??? SUMAtriptan (Imitrex) 100 mg Tablet Take 100 mg by mouth as needed for Migraine. Initial dose: 25 mg, 50 mg, or 100 mg (take with fluids). May repeat dose after 2 hours. Max daily dose: 200 mg No current facility-administered medications for this visit. Allergies: Clobetasol Social History: Social History Tobacco Use ??? Smoking status: Never Smoker ??? Smokeless tobacco: Never Used Vaping Use ??? Vaping Use: Never used Substance Use Topics ??? Alcohol use: Never ??? Drug use: Never Family History: No family history on file. Immunizations: There is no immunization history on file for this patient. Examination: BP 116/63 Pulse 74 Temp 36.2 ??C (97.1 ??F) (Temporal) Resp 24 Ht 164 cm (5' 4.57) Wt 102 kg (224 lb 13.9 oz) SpO2 100% BMI 37.92 kg/m?? General: Comfortable at rest HEENT: No cervical lymphadenopathy, no oral thrush Mallampati 3 Resp: Chest expansion equal Resonant to percussion with vesicular breath sounds throughout No crackles or wheeze CV: S1 + S2 + O GI: Abdomen soft and non-tender, no organomegaly Skin: No rash Extremities: No clubbing, no cyanosis, no edema, calves soft and non tender Neurologic: No obvious cranial nerve palsy or limb weakness, normal gait Psych: Normal mood and affect Labs: Lab Results Component Value Date WBC 6.0 08/31/2019 HGB 15.7 (H) 08/31/2019 HCT 47.0 (H) 08/31/2019 PLATELET 255 08/31/2019 Results for ROHAN, LOIDA ( ) as of 08/01/2020 13:09 08/29/2019 08/29/2019 08/30/2019 08/31/2019 Eosinophils % 7.8 7.7 8.6 8.9 Eosinophils Abs 0.5 (H) 0.5 (H) 0.6 (H) 0.5 (H) Imaging: Available CT Chest images were viewed personally and reports were reviewed. I agree with the radiology reads. I reviewed a CT scan of the chest (PET scan) from August 2019 which shows a dilated pulmonary trunk and bilateral main pulmonary arteries, no PE, borderline mediastinal and hilar adenopathy and possible bibasal groundglass opacities although there is considerable motion artifact I believe there is another more recent CT scan of the chest performed in [facility]. I will ask for those images to be sent to the system Pulmonary Function Tests: July 2020 FVC 77% -> 73% FEV1 82% -> 83% DLCO 80% No significant response to bronhodilators I personally reviewed these pulmonary function tests and they are most consistent with a mild restrictive disorder Cardiac Testing: Echocardiogram August 2019 showed left atrial dilatation, concentric LVH, mild RVH and no significantvalvular disease. An estimate of PASP could not be obtained Assessment: ?? Mild restrictive lung disease, perhaps secondary to obesity Body mass index is 37.92 kg/m??. ?? Moderate persistent asthma: symptoms and peripheral eosinophilia consistent with this diagnosis ?? Obstructive sleep apnea ?? 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 She has been prescribed Symbicort but has not taken it yet and asks whether this medication would be helpful. Really think it will be infected like to start her off with a short course of oral corticosteroid to try and get optimal control of eosinophilia upfront. For now I think she should continue the Zafirlukast -this is likely to be more effective in combination with Symbicort. Inhaler technique was reviewed with Loida today. Plan: ?? Prednisone 40 mg for 5 days now ?? Start Symbicort 2 puffs twice daily, use spacer and rinse mouth after use ?? Continue zafirlukast ?? Albuterol as needed - can use before physical activity Medication ordered or changed during this encounter, will not show discontinued medications Medications ??? predniSONE (Deltasone) 20 mg Tablet Sig: Take 2 tablets by mouth daily for 5 days. Dispense: 10 tablet Refill: 1 Follow up: By phone in about 3 weeks time (08/26) Thank you for the referral Beto Miller MD Pulmonary and Critical Care Medicine Pager #[phone] documented in this encounter Plan of Treatment Upcoming Encounters Date Type Department Care Team (Late st Contact Info) Description 10/08/2023 8:30 AM EDT Tech Visit [place] [address] Jose Cook 10/08/2023 9:30 AM EDT Office Visit [place] [address] MD [facility] [place] [address] 10/21/2023 10:30 AM EDT Appointment [place] [address] Mary Reyes [facility] [place] [address] 10/21/2023 11:30 AM EDT Appointment [place] [address] Mary Reyes [facility] [place] [address] 10/21/2023 12:30 PM EDT Appointment [place] [address] Mary Reyes, [facility] [place] [address] 10/21/2023 1:30 PM EDT Appointment [place] [address] Mary Reyes, [facility] [place] [address] 10/21/2023 2:30 PM EDT Appointment [place] [address] Mary Reyes, [facility] [place] [address] 10/26/2023 4:00 PM EDT Office Visit Cardiology at [address] [phone] Jaspreet Kinsey MD [facility] [place] [address] 10/28/2023 9:00 AM EDT Office [place] [address] 10/29/2023 10:00 AM EDT Clinical [place] [address] 10/29/2023 10:15 AM EDT Procedure [place] [address] 11/01/2023 5:00 PM EDT Office Visit [place] [address] Selene Browning, PhD [facility] [place] [address] 11/22/2023 4:40 PM EDT Office Visit Cardiology at [address] [phone] Porsha Mcdaniels MD [facility] [place] [address] 12/13/2023 10:00 AM EDT Clinical Support [place] [phone] [facility] [place] [address] documented as of this encounter Visit Diagnoses Diagnosis Asthma, chronic, moderate persistent, uncomplicated documented in this encounter Care Teams Ignition Specialist Relationship Specialty Start Date End Date Tim Rogers DNP PCP - General Family Medicine 08/28/19 06/08/21 documented as of this encounter
--- OUTSIDE RECORDS SUMMARY | 2023-09-20 14:40 | XMS_ITS | Encounter Summary ---
[place] [address] Care Team Providers Care Laser Print Operator Name Role Phone Tim Rogers DNP Primary Care Provider [phone] Reason for Visit * Reason Onset Date Comments Nasal Congestion 09/02/2020 Cough 09/02/2020 Shortness of Breath 09/02/2020 Anorexia 09/02/2020 Lack of appetite Encounter Details Date Type Department Care Team (Late st Contact Info) Description 09/02/2020 Telephone [place] [phone] Renetta Graham RN Nasal Congestion; Cough; Shortness of Breath; Anorexia (Lack of appetite) Social History Tobacco Use Types Packs/Day Years [...] Telephone Encounter - Renetta Graham RN - 09/02/2020 3:20 PM EDT Rec'd page from patient, seeking to connect with Dr. Miller. Patient reports that she continues to have symptoms, and had not heard back from Dr. Miller as expected. She reports the following positive symptoms: + Increased congestion + Thick white secretions like kid's slime toys. + Increased cough, worsening through out day and into night. + Headache + Sinus congestion + No hunger + needed to use her CPAP to breathe, + Labored breathing + Chest discomfort from cough + Running nose, PND. + Decreased exercise tolerance, especially with stairs. + Constant thirst She notes having a similar occurrence with the same symptoms one year prior. Medication Review: Patient notes that she is currently using her Symbicort inhaler, and when used with prednisone, shehas not seen a positive effect. She continues to use Flonase nasal spray, and using saline nasal lavage in am and afternoon. Continues zafirlukast, albuterol PRN. She notes that she is not using Mucinex when asked. Patient notes that she has been attempting to increase fluids by drinking mostly plain water, with occasional radha annita. Return Contact Number: Work - [phone], ask for Mihaela Preferred Pharmacy: [facility] on file. documented in this encounter Plan of Treatment Upcoming Encounters Date Type Department Care Team (Late st Contact Info) Description 10/08/2023 8:30 AM EDT Tech [place] [phone] Jose Cook 10/08/2023 9:30 AM EDT Office [place] [address] MD [facility] [place] [address] 10/21/2023 10:30 AM EDT Appointment [place] [phone] Mary Reyes APRN [facility] [address] 10/21/2023 11:30 AM EDT Appointment [place] [address] Mary Reyes [facility] [place] [address] 10/21/2023 12:30 PM EDT Appointment [place] [address] Mary Reyes [facility] [place] [address] 10/21/2023 1:30 PM EDT Appointment [place] [address] Mary Reyes [facility] [place] [address] 10/21/2023 2:30 PM EDT Appointment [place] [address] Mary Reyes [facility] [place] [address] 10/26/2023 4:00 PM EDT Office Visit Cardiology at [address] [place] [phone] Jaspreet Kinsey MD [facility] [place] [address] 10/28/2023 9:00 AM EDT Office Visit [place] [address] 10/29/2023 10:00 AM EDT Clinical Support [place] [address] 10/29/2023 10:15 AM EDT Procedure visit [place] [address] 11/01/2023 5:00 PM EDT Office Visit Gastroenterology at [place] [phone] Selene Browning, PhD [facility] [place] [address] 11/22/2023 4:40 PM EDT Office Visit Cardiology at [address] [phone] Porsha Mcdaniels MD [facility] [place] [address] 12/13/2023 10:00 AM EDT Clinical Support [place] [phone] Lucero Romero, [place] [facility] [place] [address] documented as of this encounter Visit Diagnoses Not on filedocumented in this encounter Care Teams Laser Print Operator Relationship Specialty Start Date End Date Tim Rogers DNP PCP - General Family Medicine 08/28/19 06/08/21 documented as of this encounter
--- OUTSIDE RECORDS SUMMARY | 2023-09-20 14:40 | XMS_ITS | Encounter Summary ---
[place] [address] Care Team Providers Care Director Of Quality Control Name Role Phone Tim Rogers DNP Primary Care Provider Encounter Details Date Type Department Care Team (Late st Contact Info) Description 05/02/2021 Ancillary Procedure [place] [phone] Tim Rogers DNP [address] [place], [place] [id number] Social History Tobacco Use Types Packs/Day Years [...] AM EDT Tech [place] [phone] Jose Cook 10/08/2023 9:30 AM EDT Office Visit [place] [phone] MD [facility] [place] [address] 10/21/2023 10:30 AM EDT Appointment Nuclear Medicine at [address] Mary Reyes, [facility] [address] 10/21/2023 11:30 AM EDT Appointment Nuclear Medicine at [place] [phone] Mary Reyes [facility] [address] 10/21/2023 12:30 PM EDT Appointment [place] [phone] Mary Reyes [facility] [address] 10/21/2023 1:30 PM EDT Appointment [place] [phone] Mary Reyes [facility] [address] 10/21/2023 2:30 PM EDT Appointment [place] [phone] Mary Reyes [facility] [place] [address] 10/26/2023 4:00 PM EDT Office Visit Cardiology at [address] [phone] Jaspreet Kinsey MD [facility] [place] [address] 10/28/2023 9:00 AM EDT Office [place] [address] 10/29/2023 10:00 AM EDT Clinical Support [place] [address] 10/29/2023 10:15 AM EDT Procedure [place] [address] 11/01/2023 5:00 PM EDT Office Visit Gastroenterology at [place] [phone] Selene Browning, PhD [facility] [place] [address] 11/22/2023 4:40 PM EDT Office Visit Cardiology at [address] [address] Porsha Mcdaniels MD [facility] [place] [address] 12/13/2023 10:00 AM EDT Clinical Support [place] [phone] Lucero Romero, [place] [facility] [place] [address] documented as of this encounter Procedures Procedure Name Priority Date/Time Associated Diagnosis Comments FILM LIBRARY STORAGE ONLY DX CHEST Routine 05/02/2021 12:00 AM EST documented in this encounter Results * Film Library- Storage Only DX Chest (05/02/2021 12:00 AM EST) Narrative [facility] - 05/30/2021 2:33 PM EDT This exam is auto-finalizing. It's purpose is for storage only. Tim Rogers DNP IMG FILM LIBRARY OR DERABLES [place], [place] documented in this encounter Visit Diagnoses Not on filedocumented in this encounter Care Teams Director Of Quality Control Relationship Specialty Start Date End Date Tim Rogers DNP PCP - General Family Medicine 08/28/19 06/08/21 documented as of this encounter
--- OUTSIDE RECORDS SUMMARY | 2023-09-20 14:40 | XMS_ITS | Encounter Summary ---
Author Organization [facility] [place] [address] Care Team Providers Care Health Communications Specialist Name Role Phone Tim Rogers DNP Primary Care Provider [phone] Reason for Visit * - Closed Specialty Diagnoses / Procedures Referred By Jayant harris Referred To Contact Procedures Film Library- Storage Only CT Chest Tim Rogers DNP [address] [place] [address] Referral ID Status Reason Start Date Expiration Date Visits Re quested Visits Authorized [id number] Closed 08/02/2020 08/02/2021 1 1 Encounter Details Date Type Department Care Team (Late Contact Info) Description 04/26/2020 Ancillary Procedure [place] [address] Tim Rogers DNP [address] [place], [place] [id number] Social History Tobacco Use Types Packs/Day Years [...] Tech Visit Vascular Lab at [place] [phone] Jose Cook 10/08/2023 9:30 AM EDT Office Visit Vascular Surgery at [place] [phone] MD [facility] [place] [address] 10/21/2023 10:30 AM EDT Appointment Nuclear Medicine at [address] Mary Reyes [facility] [place] [address] 10/21/2023 11:30 AM EDT Appointment Nuclear Medicine at [place] [phone] Mary Reyes [facility] [place] [address] 10/21/2023 12:30 PM EDT Appointment [place] [phone] Mary Reyes [facility] [place] [address] 10/21/2023 1:30 PM EDT Appointment [place] [phone] Mary Reyes [facility] [place] [address] 10/21/2023 2:30 PM EDT Appointment Nuclear Medicine at [facility] [place] [phone] Mary Reyes APRN [facility] [place] [address] 10/26/2023 4:00 PM EDT Office Visit Cardiology at [address] [phone] Jaspreet Kinsey MD [facility] [place] [address] 10/28/2023 9:00 AM EDT Office [place] [address] 10/29/2023 10:00 AM EDT Clinical [place] [address] 10/29/2023 10:15 AM EDT Procedure [place] [address] 11/01/2023 5:00 PM EDT Office Visit Gastroenterology at [address] Selene Browning, PhD [facility] [place] [address] 11/22/2023 4:40 PM EDT [place] [address] Porsha Mcdaniels MD [facility] [place] [address] 12/13/2023 10:00 AM EDT Clinical Support Gastroenterology at [place] [phone] [facility] [place] [address] documented as of this encounter Procedures Procedure Name Priority Date/Time Associated Diagnosis Comments FILM LIBRARY STORAGE ONLY CT CHEST Routine 04/26/2020 12:00 AM EST documented in this encounter Results * Film Library- Storage Only CT Chest (04/26/2020 12:00 AM EST) Narrative [facility] - 08/02/2020 9:42 AM EDT This exam is auto-finalizing. It's purpose is for storage only. Tim Rogers DNP [facility] FILM LIBRARY OR DERABLES Performing Organization Address City/State/[facility] Co de Phone Number [place], [place] documented in this encounter Visit Diagnoses Not on filedocumented in this encounter Care Teams Health Communications Specialist Relationship Specialty Start Date End Date Tim Rogers DNP PCP - General Family Medicine 08/28/19 06/08/21 documented as of this encounter
--- OUTSIDE RECORDS SUMMARY | 2023-09-20 14:40 | XMS_ITS | Encounter Summary ---
Author Organization [facility] [place] [address] Care Team Providers Care Composite Science Teacher Name Role Phone Tim Rogers DNP Primary Care Provider [phone] Encounter Details Date Type Department Care Team (Late st Contact Info) Description 09/09/2020 Telephone [place] [address] Beto Miller MD [facility] [place] [address] Social History Tobacco Use Types Packs/Day Years [...] Telephone Encounter - Beto Miller MD - 09/09/2020 10:19 AM EDT Images from the original note were not included. Pulmonary Telephone call with Indira yesterday. She has a 1 year history of cough, dyspnea, wheezing, intermittent sinusitis. I met her in the pulmonary offices about a month ago and thought asthma likely diagnosis typically given persistent peripheral eosinophilia of 8 to 9%, AEC 0.5-0.6. in August 2019. I prescribed a course of prednisone and encouraged her to use Symbicort on the expectation she willsee a significant benefit. Unfortunately this medication did not help and if anything her pulmonaryand sinus symptoms deteriorated requiring a 5-day course of azithromycin over the last week or so. I reviewed the chavis data ?? PFTs earlier this year showed mild restrictive disease with normal range diffusing capacity. ?? I reviewed CT scans performed in [facility] in 2019 (w/contrast) and April 2020 (w/o contrast). These were reported as showing bilateral lower lobe groundglass opacities and mediastinal andhilar adenopathy. ?? I agree there is some modest hilar and mediastinal adenopathy on the August 2019 CT but it is a little harder to be sure about the severity and distribution of the groundglass opacities on the 2020 CT given the motion artifacts. 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 I think it is worth checking some serologic tests for connective tissue disease, particular eGPA and seeing if eosinophilia is still present. If the labs below do not suggest a specific diagnosis I would consider proceeding with bronchoscopy with bronchoalveolar lavage and endobronchial ultrasound-guided biopsy of the lymph nodes to exclude granulomatous disease. I discussed the plans with Indira and we agreed to talk by phone few weeks after the blood work. Given her sinus symptoms have not resolved completely I sent a course of Augmentin to her pharmacy that she could start in the event of symptoms worsening in the coming week. Beto Miller MD Medication ordered or changed during this encounter, will not show discontinued medications Medications ??? amoxicillin-clavulanate (Augmentin) 875-125 mg Tablet Sig: Take 1 tablet by mouth 2 times daily for 7 days. Dispense: 14 tablet Refill: 0 Orders Placed This Encounter Procedures ??? CBC (with Diff) Please fax results to Dr Miller [phone] Standing Status: Future Standing Expiration Date: 03/11/2021 ??? Basic Metabolic Panel (non-fasting) Please fax results to Dr Miller [phone] Standing Status: Future Standing Expiration Date: 03/11/2021 ??? KATHRINE ([facility] [place]/CGP/APD/NLH) Please fax results to Dr Miller [phone] Standing Status: Future Standing Expiration Date: 03/11/2021 ??? Extractable Nuclear Antigen (JENNA) Ab Please fax results to Dr Miller [phone] Standing Status: Future Standing Expiration Date: 03/11/2021 ??? Angiotensin Converting Enzyme Please fax results to Dr Miller [phone] Standing Status: Future Standing Expiration Date: 03/11/2021 ??? CRP, acute inflammation Please fax results to Dr Miller [phone] Standing Status: Future Standing Expiration Date: 03/11/2021 ??? Cytoplasmic Neutrophilic Ab Please fax results to Dr Miller [phone] Standing Status: Future Standing Expiration Date: 09/09/2021 ??? Myeloperoxidase Ab Please fax results to Dr Miller [phone] Standing Status: Future Standing Expiration Date: 09/09/2021 ??? Proteinase-3 Antibody Please fax results to Dr Miller [phone] Standing Status: Future Standing Expiration Date: 09/09/2021 ??? Immunoglobulin E (IgE) Please fax results to Dr Miller [phone] Standing Status: Future Standing Expiration Date: 09/09/2021 ??? Immunoglobulins, Quantitative Standing Status: Future Standing Expiration Date: 09/09/2021 documented in this encounter Plan of Treatment Upcoming Encounters Date Type Department Care Team (Late st Contact Info) Description 10/08/2023 8:30 AM EDT Tech [place] [address] Jose Cook 10/08/2023 9:30 AM EDT Office Visit [place] [phone] MD [facility] [place] [address] 10/21/2023 10:30 AM EDT Appointment [place] [address] Mary Reyes [facility] [place] [address] 10/21/2023 11:30 AM EDT Appointment Nuclear Medicine at [place] [phone] Mary Reyes [facility] [place] [address] 10/21/2023 12:30 PM EDT Appointment [place] [address] Mary Reyes [facility] [place] [address] 10/21/2023 1:30 PM EDT Appointment [place] [address] Mary Reyes [facility] [place] [address] 10/21/2023 2:30 PM EDT Appointment [place] [address] Mary Reyes [facility] [place] [address] 10/26/2023 4:00 PM EDT Office Visit Cardiology at [address] [phone] Jaspreet Kinsey MD [facility] [place] [address] 10/28/2023 9:00 AM EDT Office [place] [address] 10/29/2023 10:00 AM EDT Clinical [place] [address] 10/29/2023 10:15 AM EDT Procedure [place] [address] 11/01/2023 5:00 PM EDT Office Visit Gastroenterology at [place] [phone] Selene Browning, PhD [facility] [address] 11/22/2023 4:40 PM EDT Office Visit Cardiology at [address] [address] Porsha Mcdaniels MD [facility] [place] [address] 12/13/2023 10:00 AM EDT Clinical Support [place] [address] Lucero Romero, RD [facility] [place] [address] documented as of this encounter Visit Diagnoses Diagnosis Acute recurrent sinusitis, unspecified location RAVI (dyspnea on exertion) Other dyspnea and respiratory abnormality Abnormal CT of the chest Nonspecific (abnormal) findings on radiological and other examination of other intrathoracic organs documented in this encounter Care Teams Composite Science Teacher Relationship Specialty Start Date End Date Tim Rogers DNP PCP - General Family Medicine 08/28/19 06/08/21 documented as of this encounter
--- OUTSIDE RECORDS SUMMARY | 2023-09-20 14:40 | XMS_ITS | Encounter Summary ---
Author Organization [facility] [address] Care Team Providers Care Last Cleaner Name Role Phone Tim Rogers DNP Primary Care Provider Reason for Visit * Diagnostic Test (Routine) - Closed Specialty Diagnoses / Procedures Referred By Jayant harris Referred To Contact Cardiology Diagnoses Palpitations Procedures Ziopatch 48 Hrs-15 Days Beto Miller MD [facility] [place] [address] [facility] [place] [address] Referral ID Status Reason Start Date Expiration Date V isits Requested Visits Authorized [id number] Closed Specialty Service Requested 10/28/2020 03/07/2021 1 1 Encounter Details Date Type Department Care Team (Latest Contact Info) Description 10/28/2020 8:00 AM EDT - 10/28/2020 11:59 PM EDT Hospital Encounter [place] [address] Beto Miller MD [facility] [place] [address] Palpitations Discharge Disposition: Home Social History Tobacco Use [...] as needed. fluticasone propionate (FLONASE) 50 mcg/actuation Mclaughlin, Suspension 1 spray by Each Nare route [...] Inject subcutaneously every 30 days. 08/13/2020 04/22/2023 Emgality Pen 120 mg/mL Pen Injector INJECT [...] TOES TOP OF FOOT ONCE DAILY 06/21/2020 hydrOXYzine (Atarax) 25 mg Tablet Take 25 [...] AM EDT Tech [place] [phone] Jose Cook 10/08/2023 9:30 AM EDT Office Visit [place] [phone] MD [facility] [place] [address] 10/21/2023 10:30 AM EDT Appointment [place] [phone] Mary Reyes [facility] [place] [address] 10/21/2023 11:30 AM EDT Appointment [place] [phone] Mary Reyes [facility] [place] [address] 10/21/2023 12:30 PM EDT Appointment [place] [phone] Mary Reyes [facility] [place] [address] 10/21/2023 1:30 PM EDT Appointment [place] [phone] Mary Reyes APRN [facility] [place] [address] 10/21/2023 2:30 PM EDT Appointment Nuclear Medicine at [place] [phone] Mary Reyes APRN [facility] [place] [address] 10/26/2023 4:00 PM EDT Office Visit Cardiology at [address] [phone] Jaspreet Kinsey MD [facility] [place] [address] 10/28/2023 9:00 AM EDT Office [place] [address] 10/29/2023 10:00 AM EDT Clinical [place] [address] 10/29/2023 10:15 AM EDT Procedure [place] [address] 11/01/2023 5:00 PM EDT Office Visit Gastroenterology at [place] [phone] Selene Browning, PhD [facility] [place] [address] 11/22/2023 4:40 PM EDT Office Visit Cardiology at [address] [phone] Porsha Mcdaniels MD [facility] [place] [address] 12/13/2023 10:00 AM EDT Clinical Support [place] [address] Lucero Romero, ALVA [facility] [place] [address] documented as of this encounter Procedures Procedure Name Priority Date/Time Associated Diagnosis Comments ZIOPATCH LOST Routine 10/28/2020 8:07 AM EDT Palpitations documented in this encounter Results * Ziopatch Lost (10/28/2020 8:07 AM EDT) Narrative Dicom, Auditing User - 12/25/2020 9:07 AM EDT The ziopatch was lost. No data collected. Beto Miller MD [facility] ORD ERABLES documented in this encounter Visit Diagnoses Diagnosis Palpitations documented in this encounter Care Teams Last Cleaner Relationship Specialty Start Date End Date Tim Rogers DNP PCP - General Family Medicine 08/28/19 06/08/21 documented as of this encounter
--- OUTSIDE RECORDS SUMMARY | 2023-09-20 14:41 | XMS_ITS | Encounter Summary ---
Author Organization [facility] Address [address] [place] [address] Care Team Providers Care Compounding Scaler Name Role Phone Unknown, Provider Primary Care Provider [phone] Encounter Details Date Type Department Care Team (Late st Contact Info) Description 05/18/2020 Lab Requisition [facility] Pathology & Laboratory Medicine - [address] [address] Outr Resulting Lab, Provider Social History Tobacco Use Types Packs/Day Years Used Date Smoking Tobacco: Never Assessed Sex and Gender Information Value Date Recorded Sex Assigned at Not on file Gender Identity Not on file Sexual Orientation Not on file documented as of this encounter Plan of Treatment Not on file documented as of this encounter Procedures Procedure Name Priority Date/Time Associated Diagnosis Comments CELIAC DISEASE PANEL Routine 05/17/2020 14:00 EST HEPATITIS C AB W REFLEX TO HCV RNA BY PCR Routine 05/17/2020 14:00 EST documented in this encounter Results * HEPATITIS C AB W REFLEX TO HCV RNA BY PCR (05/17/2020 14:00 EST) Hep C Antibody Negative Negative 05/20/2020 11:15 EDT [facility] Blood VENOUS BLOOD / Unknown 05/17/2020 14:00 EST 05/19/2020 16:37 EDT Provider Outr Resulting Lab CHEMISTRY & BLOOD GAS ORDERABLES [facility] [address] [place] [address] * CELIAC DISEASE PANEL (05/17/2020 14:00 EST) Tissue Transglutaminase Antibody IGA <1.2 <4.0 U/mL 05/20/2020 13:21 EDT [facility] Comment: A negative result may be due to IgA deficiency and does not rule out celiac disease. ? Negative: ??<4.0 U/mL ? Weak Positive: ??4.0 - 10.0 U/mL ? Positive: ??>10.0 U/mL Results were obtained with the [employer]me[employer] Lite R h-tTG IgA VAIBHAV assay on the centroseX. IgA 283 85 - 499 mg/dL 05/20/2020 13:21 EDT [facility] Celiac Disease Interpretation Negative Serology. Celiac disease unlikely. Approximately 10% of patients with celiac disease are seronegative. Patients who are already adhering to a gluten-free diet may also be seronegative. If celiac disease is highly clinically suspected, referral to gastroenterology for additional evaluation is recommended. 05/20/2020 13:21 EDT [facility] Blood VENOUS BLOOD / Unknown 05/17/2020 14:00 EST 05/19/2020 16:27 EDT Provider Outr Resulting Lab IMMUNOLOGY A ND SEROLOGY ORDERABLES Performing Organization Address City/State/[facility] Co de Phone Number [facility] [address] [place] [address] documented in this encounter Visit Diagnoses Not on filedocumented in this encounter Care Teams Compounding Scaler Relationship Specialty Start Date End Date Unknown, Provider, PCP - General 01/28/10 documented as of this encounter
--- OUTSIDE RECORDS SUMMARY | 2023-09-20 14:41 | XMS_ITS | Encounter Summary ---
[place] [address] Care Team Providers Care Qa Auditor Name Role Phone Tim Rogers DNP Primary Care Provider [phone] Reason for Visit * Auth/Cert Specialty Diagnoses / Procedures Referred By Jayant harris Referred To Contact Diagnoses NSTEMI (non-ST elevated myocardial infarction) NSTEMI Procedures EMERGNECY IPI Referral ID Status Reason Start Date Expiration Date Visits Re quested Visits Authorized [id number] 1 1 Encounter Details Date Type Department Care Team (Late st Contact Info) Description 08/30/2019 1:00 PM EDT - 08/30/2019 2:00 PM EDT [place] [phone] Jessee Malone MD [facility] [place] [address] CARDIAC CATHETERIZATION Social History Tobacco Use Types [...] Sign Reading Time Taken Comments Blood Pressure 120/74 08/30/2019 12:07 PM EDT Pulse 53 08/30/2019 12:07 PM EDT Temperature 36.5 ??C (97.7 ??F) 08/30/2019 1 2:07 PM EDT Respiratory Rate 18 08/30/2019 12:0 7 PM EDT Oxygen Saturation 99% 08/30/2019 12: 07 PM EDT Inhaled Oxygen Concentration - - Weight 96.1 kg (211 lb 13.8 oz) 08/30/2019 6:44 AM EDT Height 162.6 cm (5' 4) 08/29/2019 2:47 PM EDT Body Mass Index 35.76 08/29/2019 2:47 PM EDT documented in this encounter Discharge Summaries * Natalia Urbina, SALES PROMOTION REPRESENTATIVE - 08/30/2019 5:18 PM EDT Images from the original note were not included. Discharge Summary Patient Name: Loida Roque Patient Age: 49 y.o. Language: Bhutanese Race: White Ethnicity: Not nor Admit date: [...] 25/24 COVID 19 negative via nasopharyngeal swab ?? [...] pain overnight ~3 weeksago concerning for missed AL. ??In the ED, her EKG was abnormal with diffuse STTW abnormalities butunchanged from prior EKG in 2006.?Troponin??I??positive at 0.25 (ULN 0.06). ??Vitals stable and p atient asymptomatic at rest. ??DDimer positive at 1037 thus??CT-PE protocol??completed. ??No PE or acute aortic pathology. ??She as transferred for further work up of NSTEMI. She was admitted to . Telemetry attached showing sinus rhythm. Heparin drip [...] follow-up visit please call one of the gift basket packer on Wednesday-Wednesday between the hours of 8A- 5PM. Cardiology Clinic number @ [phone] If off hours contact the cardiac fellow on- call. Hospital Lawyer Real Estate can help you. Hospital phone number [phone] Return to work: In 1 week Drivin hours post catheterization Follow up Appointments: Doctor Where Phone # Date Time Bouchra Frias APRN [address] / [facility] [address] 09/13/19 8:30 Discharge References/Attachments None Discussed with MD Natalia Lira APRN Pager [phone] 08/31/2019 documented in this encounter Discharge Instructions * Discharge Instructions* Natalia Urbina APRN - 08/31/2019 3:54 PM EDT Call your doctor if: Chest pain, dyspnea, pain or swelling in legs occurs. If you have non-emergent questions, prior to your follow-up visit please call one of the gift basket packer on Wednesday-Wednesday between the hours of 8A- 5PM. Cardiology Clinic number @ [phone] If off hours contact the cardiac fellow on- call. Hospital Lawyer Real Estate can help you. [facility] phone number [phone] Return to work: In 1 week Drivin hours post catheterization Follow up Appointments: Doctor Where Phone # Date Time Bouchra Frias APRN [address] / [facility] [address] 09/13/19 8:30 * Attachments The following attachments cannot be sent through Care Everywhere. * Cardiac Catheterization: Left (Bhutanese) documented in this encounter Medications at Time of Discharge Medication Sig Dispensed Refills Start Date End Date fluticasone propionate (FLONASE) 50 mcg/actuation [place], Suspension 1 spray by Each Nare route [...] Spirometry Patient Loida Roque 49 y.o. 1970 [id number] Spirometry Spirometry performed successfully. Waiting for read [...] Pt wheeled out of the unit with ENGINEER CHIEF. * Leonardo Jolly - 08/31/2019 12:25 PM EDT Nutrition Services Note - Low Nutrition Acuity Loida Roque is a 49 y.o. female Reason for intervention: education [facility] [place] NA Nutrition Plan: Patient states that she follows a low sodium restriction a home. Educational Material Guidelines for a Heart Healthy Lifestyle provided. Continue current diet. Educational Material provided. Monitor weight. Encourage good oral intake. Support and encouragement provided. Nutrition will continue to monitor and follow up with patient as needed. Active Orders Diet Daily Healthy Menu Choices/Cardiac diet ([facility]-Diet) Frequency: Effective Now Number of Occurrences: Until [...] course unless consulted in the interim. Leonardo Jolly Pager: [phone] * Manish Benitez MD - 08/31/2019 9:33 AM EDT Images from the original note were not included. Inpatient Cardiology Progress Note Patient Name: Loida Roque Service: RETAIL FURNITURE SALES / PA Responsible Attending: Manish Benitez MD [...] and vitals reviewed. Lab Comments: Recent Labs 08/31/1941108/30/1925208/29/192029 WBC 6.0 7.4 6.3 HGB 15.7* 14.8 15.3 HCT 47.0* 44.8 46.4* PLATELET 255 272 267 Recent Labs 08/29/19 1510 INR 1.2 Recent Labs 08/31/1941108/30/1925208/29/19 1510 NA 136 139 138 K 4.2 3.8 4.2 CL 105 103 105 CO2 18* 19* 19* BUN 21* 18 15 CREATININE 0.91 1.09 0.84 Recent Labs 08/29/19 1510 AST 25 ALT 19 ALKPHOS 49 BILITOT 0.7 BILIDIR 0.1 Recent Labs 08/31/1941108/30/1925208/29/19 1510 CALCIUM 9.4 9.0 9.2 MAGNESIUM 0.92 0.90 -- Recent Labs 08/30/1925208/29/19202908/29/19 1510 CK 82 94 96 TROPONINT <0.01 [...] See remainder of report for additional findings. [facility] 08/29 Preliminary findings: Right dominant Normal coronary [...] overnight ~3 weeks ago concerning for missed AL. ??In the ED, her EKG was abnormal with diffuse STTW abnormalities but unchanged from prior EKG in 200 7.?Troponin??I??positive at 0.25 (ULN 0.06). ??Vitals stable and patient asymptomatic at rest. ??DDimer positive at 1037 thus??CT-PE protocol??completed. ??No PE or acute aortic pathology. ??She is transferred for further work up of NSTEMI. ??EF 62% and no wall motions seen on echo. [facility] with normal cors and LVEDP 15. Will [...] Echo with EF 62% and no WMA [facility] with normal cors A1C 5.4% Bedside PFTs today ?? FULL CODE Discussed with MD Natalia Lira, SALES PROMOTION REPRESENTATIVE Pager [phone] 08/31/2019 Cardiology Attending Note I interviewed and examined the patient during comprehensive bedside rounds. I concur with the summary of interval events, active hospital-focused problem list and plan of care as described in the note below. I personally reviewed the medications, laboratory results, treatment decisions and updated the patient. Manish Benitez MD, FACP, FACC Section of Cardiovascular Medicine [facility] Employment Clerkyarn weigher [facility] of Medicine at [facility] This patient meets or has met medical [...] Progress Note Patient Name: Loida Roque Service: RETAIL FURNITURE SALES / PA Responsible Attending: Manish Benitez MD [...] 9.0 9.2 MAGNESIUM 0.90 -- Recent Labs 08/30/1925208/29/19202908/29/19 1510 CK 82 94 96 TROPONINT <0.01 [...] overnight ~3 weeks ago concerning for missed AL. 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 fluticasone propionate (FLONASE) 50 mcg/actuation [place], Suspension 1 spray by Each Nare route [...] overnight ~3 weeks ago concerning for missed AL. In the ED, her EKG was abnormal with diffuse STTW abnormalities but unchanged from prior EKG in 2006. Troponin I positive at 0.25 (ULN 0.06). Vitals stable and patient asymptomatic at rest. DDimer positive [id number] thus CT-PE protocol completed. No PE or acute aortic pathology. She is transferred for furtherwork up of NSTEMI. Plan Echo and coronary angiography. TREATMENT PLAN: #NSTEMI Admit to cardiology Trend troponin - 1st negative at [facility] ProBNP 1242; Admit weight 207 lbs; Lasix [...] MD, FACP, FACC Section of Cardiovascular Medicine [facility] Employment Clerkyarn weigher [facility] of Medicine at [facility] This patient meets or has met medical [...] Primary care provider on file: Tim Rogers, SALES PROMOTION REPRESENTATIVE [phone] Advance Directive on file and Code Status: Full Code Patient???s Functional Status: Independent w/o device Living Situation: lives with Boby Roque (Spouse) [phone] (M) at [address] [place] [phone] Supports: Boby, Mother son and daughter Assessment: Patient with no apparent RNCM/SW needs at this time. No housing, transportation, insurance, resources concerns identified at this time. Supports in place to achieve a safe post-hospital transition. No identified barriers to accessing necessary care and/or follow-up after discharge. Plan: Patient to d/c to home when medically ready. labor contractor/Multiple Games Dealer will continue to follow patient???s progress and remain available if situation changes for coordination of care, psychosocial support and/or discharge planning. Angela Loving RN * Brief Op Note - Jsesee Malone MD - 08/30/2019 2:31 PM EDT Preliminary Cardiac Catheterization Procedure Note: Patient Name: Loida Roque : [id number] MR#: [id number] Case Date: 08/30/2019 [employer]yer [employer]: Surgeon(s) and Role: * Jessee Malone MD - Primary * Luis Tatum PA - Fellow Preoperative diagnosis: ?CAD Postoperative diagnosis: * CAD * Procedure(s) performed: [facility] Coronary angio Access: Right radial A time-out [...] for further details. JOCY Montaño 08/30/2019 Pager [phone] * Plan of Care - Efrain Verma [...] AM EDT Tech [place] [phone] Jose Cook 10/08/2023 9:30 AM EDT Office [place] [phone] MD [facility] DR VASCULAR SURGERY [place] [phone] 10/21/2023 10:30 AM EDT Appointment [place] [phone] Calvino, Mary M, [facility] [place] [address] 10/21/2023 11:30 AM EDT Appointment Nuclear Medicine at [place] [phone] Mary Reyes [facility] [place] [address] 10/21/2023 12:30 PM EDT Appointment [place] [phone] Mary Reyes [facility] [place] [address] 10/21/2023 1:30 PM EDT Appointment [place] [address] Mary Reyes [facility] [place] [address] 10/21/2023 2:30 PM EDT Appointment [place] [address] Mary Reyes [facility] [place] [address] 10/26/2023 4:00 PM EDT Office Visit Cardiology at [address] [phone] [facility] [place] [address] 10/28/2023 9:00 AM EDT Office Visit [place] [address] 10/29/2023 10:00 AM EDT Clinical Support [place] [address] 10/29/2023 10:15 AM EDT Procedure visit [place] [address] 11/01/2023 5:00 PM EDT Office Visit [place] [address] Selene Browning, PhD [facility] [place] [address] 11/22/2023 4:40 PM EDT Office Visit Cardiology at [address] [phone] Porsha Mcdaniels MD [facility] [place] [address] 12/13/2023 10:00 AM EDT Clinical Support [place] [address] [facility] [place] [address] documented as of this encounter Procedures Procedure [...] spirometry WITHOUT bronchodialator (08/31/2019 6:24 PM EDT) Zoe Phillips MD - 08/31/2019 6:24 PM EDT Zoe Morocho MD ? 09/04/2019 ??3:14 PM Pulmonary Function Test Interpretation FEV1 is normal. FVC is reduced. ??The FEV1/FVC ratio is normal. 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%) Zoe Morocho MD Natalia Urbina SALES PROMOTION REPRESENTATIVE PFT ORDERABLES * EKG 12 Lead (08/31/2019 7:05 AM EDT) Ventricular rate 51 BPM MUSE SYSTEM Atrial Rate 51 BPM MUSE SYSTEM P-R Interval 186 ms MUSE SYSTEM QRS Duration 82 ms MUSE SYSTEM Q-T Interval 546 ms MUSE SYSTEM QTC Calculated (Bezet) 503 ms MUSE SYSTEM Calculated P [place] 18 degrees MUSE SYSTEM Calculated R [place] 52 degrees MUSE SYSTEM Calculated T [place] 13 degrees MUSE SYSTEM INTERPRETATION Sinus bradycardia [...] 4:12 AM EDT) Neutrophils % 45.2 % [facility] Neutr Abs (ANC) 2.73 1.70 - 6.10 x10(3)/mc L [facility] Lymphocytes % 34.8 % [facility] Lymphocytes Abs 2.1 0.9 - 3.2 x10(3)/mc L [facility] Monocytes % 10.1 % [facility] Monocyte Abs 0.6 0.3 - 0.9 x10(3)/mc L [facility] Eosinophils % 8.9 % [facility] Eosinophils Abs 0.5(H) 0.0 - 0.4 x10(3)/[facility] Basophils % 0.8 % [facility] Basophils Abs 0.0 0.0 - 0.1 x10(3)/[facility] Immature Gran % 0.20 % [facility] Comment: Immature granulocytes(IG's)percentage and absolute count will include metamyelocytes, myelocytes, and promyelocytes. Blood smears from CBCs yielding IG's will be scanned manually for concordance. If this scan disagrees with the automated IG or if promyelocytes are noted, a manual differential will be performed. Shonda Gran Abs 0.01 0.00 - 0.04 x10(3)/[facility] Blood specimen (specimen) 08/31/2019 4:12 AM EDT 08/31/2019 4:29 AM EDT Narrative Resulting Agency Comment Spec In Lab Abe[place] SANDRA HEMATOLOGY ORDERABLE S [facility] [place] [address] * (ABNORMAL) Hemogram (08/31/2019 4:12 AM EDT) WBC 6.0 4.0 - 9.5 x10(3)/[facility] RBC 5.08 4.00 - 5.21 x10(6)/[facility] Hemoglobin 15.7(H) 11.7 - 15.5 gm/dL [facility] Hematocrit 47.0(H) 35.7 - 45.8 % [facility] MCV 92.5 82.6 - 94.4 fL [facility] MCH 30.9 27.1 - 32.0 pg [facility] MCHC 33.4 31.7 - 35.0 gm/dL [facility] Platelets 255 145 - 357 x10(3)/[facility] RDWSD 45.3 37.0 - 46.0 fL [facility] RDWCV 13.2 11.5 - 14.1 % [facility] MPV 11.4 7.6 - 12.9 [facility] nRBC % Auto 0.0 % [facility] nRBC Abs Auto 0.000 0.000 - 0.000 x10(3)/[facility] Blood specimen (specimen) 08/31/2019 4:12 AM EDT 08/31/2019 4:29 AM EDT Narrative Resulting Agency Comment Spec In Lab [place] SANDRA HEMATOLOGY ORDERABLE S Performing Organization Address City/[facility]/ZIP Co de Phone Number [facility] [place] [address] * Magnesium (08/31/2019 4:12 AM EDT) Magnesium 0.92 0.69 - 1.07 mmol/L [facility] Blood specimen (specimen) 08/31/2019 4:12 AM EDT 08/31/2019 4:29 AM EDT Narrative Resulting Agency Comment Spec In Lab Manish Benitez MD CHEMISTRY ORDERABL ES Performing Organization Address City/[facility]/ZIP Co de Phone Number [facility] [place] [address] * (ABNORMAL) BMP w/fasting Glucose (08/31/2019 4:12 AM EDT) Glucose Fasting 91 65 - 99 mg/dL [facility] [...] of Diabetes Mellitus, Position Statement from the [place] Diabetes Association. ??Diabetes Care, Volume 33, Supplement 1, Mar 2009 BUN 21(H) 8 - 18 mg/dL [facility] Creatinine 0.91 0.70 - 1.20 mg/dL [facility] Sodium 136 135 - 145 mmol/L [facility] Potassium 4.2 3.5 - 5.0 mmol/L [facility] Comment: Please note: ??Patients with WBC >100,000 may have falsely elevated Potassium levels. ??For accurate Potassium quantification in these patients send serum separator tube (gold top) for subsequent determinations. ??Contact the Clinical Chemistry Laboratory if there are any questions. Chloride 105 98 - 107 mmol/L [facility] CO2 18(L) 22 - 31 mmol/L [facility] Anion Gap 13 5 - 15 mmol/L [facility] Calcium 9.4 8.5 - 10.5 mg/dL [facility] Estimated GFR 74 >=60 mL/min/1. 73 m?? [facility] Comment: The eGFR was calculated using the CKD-EPI equation. As with all creatinine based estimates of kidney function, eGFR values calculated with the CKD-EPI equation are not accurate in patients with acute kidney failure, extremes of body mass or the acutely ill. http://[employer]/[facility] eGFR 85 >=60 mL/min/1. 73 m?? [facility] Comment: The eGFR was calculated using the CKD-EPI equation. As with all creatinine based estimates of kidney function, eGFR values calculated with the CKD-EPI equation are not accurate in patients with acute kidney failure, extremes of body mass or the acutely ill. http://[employer]/[facility] Blood specimen (specimen) 08/31/2019 4:12 AM EDT 08/31/2019 4:29 AM EDT Narrative Resulting Agency Comment Spec In Lab Manish Benitez MD CHEMISTRY ORDERABL ES Performing Organization Address [facility]/State/ZIP Co de Phone Number [facility] [place] [address] * CARDIAC CATHETERIZATION (08/30/2019 2:40 PM EDT) Anatomical Region Laterality Modality Other Narrative 08/30/2019 2:59 PM EDT ?[facility] ? Cardiac Catheterization/Intervention Report ? Patient Name: Neisha, Loida ? Procedure Date: 08/30/2019 ? A #: [id number] ? Primary Physician: Kira, Jessee T ? Case #: [id number] ? File Name: [id number] ? Catheterization Order Number: [id number] ? [facility] ? Final Report [place], [place] ? Patient Name: ? Loida Neisha ? ID#: ?[id number] ? : ?1970 ? Procedure Date: ? August 30, 2019 ?Case #: ? [id number] ? Room: ? 5 ? Case Physician: ? Jessee T Kira, M.D. ?Start: ?14:11 ? Admission: ??08/29/2019 ? Referring Physician: ??Pooja J Iyer ? Procedures: ?* Coronary Angiography ?* [...] was Urgent. The indication for ?the laborer shaft sinking visit is ACS less than or equal [...] Procedure Note Jessee Malone MD - 08/30/2019 [facility] Cardiac Catheterization/Intervention Report Patient Name: Loida Roque Procedure Date: 08/30/2019 A #: [id number] Primary Physician: Jessee Malone Case #: [id number] File Name: [id number] Catheterization Order Number: [id number] [facility] FinalReport [place], [place] Patient Name: Loida Roque ID#:[id number] :1970 Procedure Date: August 30, 2019 Case [...] was designated as ASA Class III. The [facility] clinical frailtyscale is 2: Well. Diagnostic Tests: Prior Coronary Angiography: LV ejection fraction within 6 months is 65%. Medications Prior to Procedure: Aspirin. Indications for Diagnostic Cath: The priority of the diagnostic procedure was Urgent. The indicationfor the laborer shaft sinking visit is ACS less than or equal [...] ?NEISHA LOIDA ?(Age): 1970(49y) Med Rec#: ? [id number] ?Sex: ?F ? Site Loc: ? [facility] ?Ht / Wt: ??163(cm)/94(kg) Pt. Loc: ?Adult Floor ? BSA: ?1.99 Study Date: ?? 08/30/2019 ?Pt. Type: Inpatient Tape: ? Referring: POOJA IYER J Reading: Jose Chambers ([id number]) Gear Finisher: Jaspreet Oneil [facility] Interpreting Fellow: Poncho Yates ([id number]) Diagnosis: *Non-ST elevation (NSTEMI) myocardial infarction (I21.4) [...] Vmax ?0.35 ? m/sec ? MV deceleration [id number] ?msec ? MV A-wave Vmax ?0.25 ? [...] ? Mid-Inferior ?Normal ? Mid-Inferoseptal ?Normal ? [place]-Septal ? Normal ? [place]-Anterior ? Normal ? [place]-Lateral ?Normal ? [place]-Inferior ? Normal ? [place]-Tip ?Normal ? This report has been electronically signed by: Jose Chambers MD ? 08/30/2019 14:21:57 Images reviewed and interpretation verified [facility] Cardiac Ultrasound Laboratory Procedure Note Jose Chambers MD - 08/30/2019 Procedure: Transthoracic Echocardiogram Patient: NEISHA VÁSQUEZ(Age): 1970(49y) Med Rec#: [id number] Sex: F Site Loc: [facility] Ht / Wt: 163(cm)/94(kg) Pt. Loc: Adult Floor BSA: 1.99 Study Date: 08/30/2019 Pt. Type: Inpatient Tape: Referring: POOJA IYER J Reading: Jose Chambers ([id number]) Gear Finisher: Jaspreet Oneil RDCS Interpreting Fellow: Poncho Yates ([id number]) Diagnosis: *Non-ST elevation (NSTEMI) myocardial infarction (I21.4) [...] MV E-wave Vmax 0.35 m/sec MV deceleration [id number] msec MV A-wave Vmax 0.25 m/sec MV [...] Normal Mid-Posterolateral Normal Mid-Inferior Normal Mid-Inferoseptal Normal [place]-Septal Normal [place]-Anterior Normal [place]-Lateral Normal [place]-Inferior Normal [place]-Tip Normal This report has been electronically signed by: Jose Chambers MD 08/30/2019 14:21:57 Images reviewed and interpretation verified [facility] Cardiac Ultrasound Laboratory Manish Benitez MD ECHO ORDERABLES * EKG 12 Lead (08/30/2019 10:28 AM EDT) Ventricular rate 52 BPM MUSE SYSTEM Atrial Rate 52 BPM MUSE SYSTEM P-R Interval 162 ms MUSE SYSTEM QRS Duration 84 ms MUSE SYSTEM Q-T Interval 536 ms MUSE SYSTEM QTC Calculated (Bezet) 498 ms MUSE SYSTEM Calculated P [place] -9 degrees MUSE SYSTEM Calculated R [place] 43 degrees MUSE SYSTEM Calculated T [place] -27 degrees MUSE SYSTEM INTERPRETATION Sinus bradycardia [...] AM EDT) Heparin UFH Level 0.44 IU/mL [facility] Comment: Guidelines for therapeutic unfractionated [...] Lab Manish Benitez MD HEMATOLOGY ORDERAB LES [facility] [place] [address] * (ABNORMAL) Differential, Automated (08/30/2019 2:53 AM EDT) Neutrophils % 52.4 % [facility] Neutr Abs (ANC) 3.85 1.70 - 6.10 x10(3)/ L [facility] Lymphocytes % 29.3 % [facility] Lymphocytes Abs 2.2 0.9 - 3.2 x10(3)/[facility] Monocytes % 9.1 % [facility] Monocyte Abs 0.7 0.3 - 0.9 x10(3)/[facility] Eosinophils % 8.6 % [facility] Eosinophils Abs 0.6(H) 0.0 - 0.4 x10(3)/[facility] Basophils % 0.5 % [facility] Basophils Abs 0.0 0.0 - 0.1 x10(3)/[facility] Immature Gran % 0.10 % [facility] Comment: Immature granulocytes(IG's)percentage and absolute count will include metamyelocytes, myelocytes, and promyelocytes. Blood smears from CBCs yielding IG's will be scanned manually for concordance. If this scan disagrees with the automated IG or if promyelocytes are noted, a manual differential will be performed. Shonda Gran Abs 0.01 0.00 - 0.04 x10(3)/[facility] Blood specimen (specimen) 08/30/2019 2:53 AM EDT 08/30/2019 3:01 AM EDT Narrative Resulting Agency Comment Spec In Lab [place] SANDRA HEMATOLOGY ORDERABLE S [facility] [place] [address] * (ABNORMAL) Hemogram (08/30/2019 2:53 AM EDT) WBC 7.4 4.0 - 9.5 x10(3)/[facility] [facility] RBC 4.84 4.00 - 5.21 x10(6)/[facility] Hemoglobin 14.8 11.7 - 15.5 gm/dL [facility] Hematocrit 44.8 35.7 - 45.8 % [facility] MCV 92.6 82.6 - 94.4 [facility] MCH 30.6 27.1 - 32.0 pg [facility] MCHC 33.0 31.7 - 35.0 gm/dL [facility] Platelets 272 145 - 357 x10(3)/[facility] RDWSD 46.2(H) 37.0 - 46.0 [facility] RDWCV 13.5 11.5 - 14.1 % [facility] MPV 10.9 7.6 - 12.9 [facility] nRBC % Auto 0.0 % [facility] nRBC Abs Auto 0.000 0.000 - 0.000 x10(3)/[facility] Blood specimen (specimen) 08/30/2019 2:53 AM EDT 08/30/2019 3:01 AM EDT Narrative Resulting Agency Comment Spec In Lab Abe[place] SANDRA HEMATOLOGY ORDERABLE S [facility] [place] [address] * Magnesium (08/30/2019 2:53 AM EDT) Magnesium 0.90 0.69 - 1.07 mmol/L [facility] Blood specimen (specimen) 08/30/2019 2:53 AM EDT 08/30/2019 3:01 AM EDT Narrative Resulting Agency Comment Spec In Lab Manish Benitez MD CHEMISTRY ORDERABL ES [facility] [place] [address] * (ABNORMAL) BMP w/fasting Glucose (08/30/2019 2:53 AM EDT) Glucose Fasting 102(H) 65 - 99 mg/dL [facility] [...] of Diabetes Mellitus, Position Statement from the [place] Diabetes Association. ??Diabetes Care, Volume 33, Supplement 1, Mar 2009 BUN 18 8 - 18 mg/dL [facility] Creatinine 1.09 0.70 - 1.20 mg/dL [facility] Sodium 139 135 - 145 mmol/L [facility] Potassium 3.8 3.5 - 5.0 mmol/L [facility] Comment: Please note: ??Patients with WBC >100,000 may have falsely elevated Potassium levels. ??For accurate Potassium quantification in these patients send serum separator tube (gold top) for subsequent determinations. ??Contact the Clinical Chemistry Laboratory if there are any questions. Chloride 103 98 - 107 mmol/L [facility] CO2 19(L) 22 - 31 mmol/L [facility] Anion Gap 17(H) 5 - 15 mmol/L [facility] Calcium 9.0 8.5 - 10.5 mg/dL [facility] Estimated GFR 59(L) >=60 mL/min/1. 73 m?? [facility] Comment: The eGFR was calculated using the CKD-EPI equation. As with all creatinine based estimates of kidney function, eGFR values calculated with the CKD-EPI equation are not accurate in patients with acute kidney failure, extremes of body mass or the acutely ill. [email or web address] eGFR 69 >=60 mL/min/1. 73 m?? [facility] Comment: The eGFR was calculated using the CKD-EPI equation. As with all creatinine based estimates of kidney function, eGFR values calculated with the CKD-EPI equation are not accurate in patients with acute kidney failure, extremes of body mass or the acutely ill. [email or web address] Blood specimen (specimen) 08/30/2019 2:53 AM EDT 08/30/2019 3:01 AM EDT Narrative Resulting Agency Comment Spec In Lab Manish Benitez MD CHEMISTRY ORDERABL ES Performing Organization Address [facility] Co de Phone Number [facility] [place] [address] * Triglyceride (08/30/2019 2:53 AM EDT) Triglycerides 203 mg/dL [facility] Comment: Average Risk/Lower Risk: <150 mg/dL Borderline High Risk: 150-199 mg/dL High Risk: 200-499 mg/dL Very High Risk: >nx=030 mg/dL Blood specimen (specimen) 08/30/2019 2:53 AM EDT 08/30/2019 3:01 AM EDT Narrative Resulting Agency Comment Spec In Lab Manish Benitez MD CHEMISTRY ORDERABL ES [facility] [place] [address] * HDL/Cholesterol Profile (08/30/2019 2:53 AM EDT) Chol, Total 220 mg/dL [facility] Comment: Lower Risk: <200 mg/dL Average Risk: 200-239 mg/dL Higher Risk: >hl=334 mg/dL HDL 34 mg/dL [facility] Comment: Males: ?? Higher Risk: <40 mg/dL Females: ?? HIgher Risk: <50 mg/dL Chol/HDL Ratio 6.5 ratio [facility] Chol/HDL Interpretation See Note [facility] Comment: Lipid management should be guided by a patient? s ASCVD risk, goals and preferences. ACC/AHA Guidelines recommend high intensity statin if clinical ASCVD or LDL greater than or equal to 190 mg/dL. http://[employer]com/VCP-BEI-Rgftfoqcd Measure LDL if Total Cholesterol minus HDL Cholesterol is greater than 220 mg/dL. Adults aged 40-75 with LDL 70-189 mg/dL should have their 10 year ASCVD risk estimated with the ACC/AHA ASCVD risk collision estimator http://tools.acc.org/WPNFM-Axae-Cjlxmrqbw/ Statin should be discussed if risk greater [...] Lab Manish Benitez MD CHEMISTRY ORDERABL ES [facility] [place] [address] * LDL Cholesterol, Direct (08/30/2019 2:53 AM EDT) LDL Chol Direct 165 mg/dL [facility] Comment: Lowest Risk: <100 mg/dL Lower Risk: 100-129 mg/dL Borderline High Risk: 130-159 mg/dL High Risk: 160-189 mg/dL Very High Risk: >yp=883 mg/dL Blood specimen (specimen) 08/30/2019 2:53 AM EDT 08/30/2019 3:01 AM EDT Narrative Resulting Agency Comment Spec In Lab Manish Benitez MD CHEMISTRY ORDERABL ES [facility] [place] [address] * Hemoglobin A1c (08/30/2019 2:53 AM EDT) Hemoglobin A1C 5.4 4.3 - 5.6 % [facility] Comment: Reference Range: 4.3 [...] 1, S67-74 Est Avg Gluc 108 mg/dL [facility] Comment: eAG equivalents for HbA1c [...] into estimated average glucose values. ??Diabetes Care 2008:31(8):7062-8514. Blood specimen (specimen) 08/30/2019 2:53 AM EDT 08/30/2019 3:01 AM EDT Narrative Resulting Agency Comment Spec In Lab Manish Benitez MD CHEMISTRY ORDERABL ES Performing Organization Address [facility] Co de Phone Number [facility] [place] [address] * CK (08/30/2019 2:53 AM EDT) [facility] CK, Total 82 0 - 160 unit/L [facility] Blood specimen (specimen) 08/30/2019 2:53 AM EDT 08/30/2019 3:01 AM EDT Narrative Resulting Agency Comment Spec In Lab Manish Benitez MD CHEMISTRY ORDERABL ES Performing Organization Address [facility] de Phone Number [facility] [place] [address] * Troponin (08/30/2019 2:53 AM EDT) [facility] Troponin-T <0.01 0.00 - 0.00 ng/mL [facility] Comment: The 99th percentile for Troponin T is less than 0.01 ng/mL, any detectable cTnT concentration using this assay should be considered elevated. According to the third universal definition of myocardial infarction the following criteria with a clinical presentation consistent with acute myocardial ischemia meets the diagnosis for a myocardial infarction (AL). Detection of a rise and/or fall of cTnT, with at least one value greater than the 99th percentile (> or = 0.01) and with at least one of the following ?? Symptoms of ischemia ?? New or presumed new significant WV-ocednsx-D wave (ST-T) changes or new left bundle [...] additional sample may be indicated. Reference: Third [place] Definition of Myocardial Infarction. Journal of the [place] College [employer]iology 2012;60:1581-98 Blood specimen (specimen) 08/30/2019 2:53 AM EDT 08/30/2019 3:01 AM EDT Narrative Resulting Agency Comment Spec In Lab Manish Benitez MD CHEMISTRY ORDERABL ES [facility] [place] [address] * (ABNORMAL) Differential, Automated (08/29/2019 8:30 PM EDT) Neutrophils % 56.5 % [facility] Neutr Abs (ANC) 3.58 1.70 - 6.10 x10(3)/mc L [facility] Lymphocytes % 25.9 % [facility] Lymphocytes Abs 1.6 0.9 - 3.2 x10(3)/mc L [facility] Monocytes % 8.8 % [facility] Monocyte Abs 0.6 0.3 - 0.9 x10(3)/mc L [facility] Eosinophils % 7.7 % [facility] Eosinophils Abs 0.5(H) 0.0 - 0.4 x10(3)/mc L [facility] Basophils % 0.8 % [facility] Basophils Abs 0.0 0.0 - 0.1 x10(3)/mc L [facility] Immature Gran % 0.30 % [facility] Comment: Immature granulocytes(IG's)percentage and absolute count will include metamyelocytes, myelocytes, and promyelocytes. Blood smears from CBCs yielding IG's will be scanned manually for concordance. If this scan disagrees with the automated IG or if promyelocytes are noted, a manual differential will be performed. Shonda Gran Abs 0.02 0.00 - 0.04 x10(3)/ L [facility] Blood specimen (specimen) 08/29/2019 8:30 PM EDT 08/29/2019 9:11 PM EDT Narrative Resulting Agency Comment Spec In Lab [place] SANDRA HEMATOLOGY ORDERABLE S [facility] [place] [address] * (ABNORMAL) Hemogram (08/29/2019 8:30 PM EDT) WBC 6.3 4.0 - 9.5 x10(3)/[facility] RBC 5.03 4.00 - 5.21 x10(6)/[facility] Hemoglobin 15.3 11.7 - 15.5 gm/dL [facility] Hematocrit 46.4(H) 35.7 - 45.8 % [facility] MCV 92.2 82.6 - 94.4 [facility] MCH 30.4 27.1 - 32.0 pg [facility] MCHC 33.0 31.7 - 35.0 gm/dL [facility] Platelets 267 145 - 357 x10(3)/[facility] RDWSD 46.4(H) 37.0 - 46.0 [facility] RDWCV 13.6 11.5 - 14.1 % [facility] MPV 11.3 7.6 - 12.9 [facility] nRBC % Auto 0.0 % [facility] nRBC Abs Auto 0.000 0.000 - 0.000 x10(3)/[facility] Blood specimen (specimen) 08/29/2019 8:30 PM EDT 08/29/2019 9:11 PM EDT Narrative Resulting Agency Comment Spec In Lab [place] SANDRA HEMATOLOGY ORDERABLE S Performing Organization Address [facility] Co de Phone Number [facility] [place] [address] * Heparin (unfractionated) Level (08/29/2019 8:30 PM EDT) Pathologist [facility] Heparin UFH Level 0.46 IU/mL [facility] Comment: Guidelines for therapeutic unfractionated [...] Lab Manish Benitez MD HEMATOLOGY ORDERAB LES [facility] [place] [place] [address] * CK (08/29/2019 8:30 PM EDT) Pathologist [facility] CK, Total 94 0 - 160 unit/L [facility] Blood specimen (specimen) 08/29/2019 8:30 PM EDT 08/29/2019 9:11 PM EDT Narrative Resulting Agency Comment Spec In Lab Manish Benitez MD CHEMISTRY ORDERABL ES Performing Organization Address [facility] Co de Phone Number [facility] [place] [place] [address] * Troponin (08/29/2019 8:30 PM EDT) Troponin-T <0.01 0.00 - 0.00 ng/mL [facility] Comment: The 99th percentile for Troponin T is less than 0.01 ng/mL, any detectable cTnT concentration using this assay should be considered elevated. According to the third universal definition of myocardial infarction the following criteria with a clinical presentation consistent with acute myocardial ischemia meets the diagnosis for a myocardial infarction ([place]). Detection of a rise and/or fall of cTnT, with at least one value greater than the 99th percentile (> or = 0.01) and with at least one of the following ?? Symptoms of ischemia ?? New or presumed new significant CS-ccqjkno-E wave (ST-T) changes or new left bundle [...] additional sample may be indicated. Reference: Third [place] Definition of Myocardial Infarction. Journal of the [place] College of Cardiology 2012;60:1581-98 Blood specimen (specimen) 08/29/2019 8:30 PM EDT 08/29/2019 9:11 PM EDT Narrative Resulting Agency Comment Spec In Lab Manish Benitez MD CHEMISTRY ORDERABL ES Performing Organization Address [facility] Co de Phone Number [facility] [place] [place] [address] * EKG 12 Lead (08/29/2019 4:19 PM EDT) Ventricular rate 67 BPM MUSE SYSTEM Atrial Rate 67 BPM MUSE SYSTEM P-R Interval 164 ms MUSE SYSTEM QRS Duration 80 ms MUSE SYSTEM Q-T Interval 478 ms MUSE SYSTEM QTC Calculated (Bezet) 505 ms MUSE SYSTEM Calculated P [place] 34 degrees MUSE SYSTEM Calculated R [place] 30 degrees MUSE SYSTEM Calculated T [place] -29 degrees MUSE SYSTEM INTERPRETATION Demand pacemaker; [...] (ABNORMAL) Differential, Automated (08/29/2019 3:10 PM EDT) Neutrophils % 58.3 % [facility] Neutr Abs (ANC) 3.79 1.70 - 6.10 x10(3)/ L [facility] Lymphocytes % 22.7 % [facility] Lymphocytes Abs 1.5 0.9 - 3.2 x10(3)/[facility] Monocytes % 10.3 % [facility] Monocyte Abs 0.7 0.3 - 0.9 x10(3)/ L [facility] Eosinophils % 7.8 % [facility] Eosinophils Abs 0.5(H) 0.0 - 0.4 x10(3)/ L [facility] Basophils % 0.6 % [facility] Basophils Abs 0.0 0.0 - 0.1 x10(3)/ L [facility] Immature Gran % 0.30 % [facility] Comment: Immature granulocytes(IG's)percentage and absolute count will include metamyelocytes, myelocytes, and promyelocytes. Blood smears from CBCs yielding IG's will be scanned manually for concordance. If this scan disagrees with the automated IG or if promyelocytes are noted, a manual differential will be performed. Shonda Gran Abs 0.02 0.00 - 0.04 x10(3)/mc L [facility] Blood specimen (specimen) 08/29/2019 3:10 PM EDT 08/29/2019 3:50 PM EDT Narrative Resulting Agency Comment Spec In Lab [place] SANDRA HEMATOLOGY ORDERABLE S [facility] [place] [address] * (ABNORMAL) Hemogram (08/29/2019 3:10 PM EDT) WBC 6.5 4.0 - 9.5 x10(3)/[facility] RBC 4.69 4.00 - 5.21 x10(6)/[facility] Hemoglobin 14.1 11.7 - 15.5 gm/dL [facility] Hematocrit 43.8 35.7 - 45.8 % [facility] MCV 93.4 82.6 - 94.4 [facility] MCH 30.1 27.1 - 32.0 pg [facility] MCHC 32.2 31.7 - 35.0 gm/dL [facility] Platelets 235 145 - 357 x10(3)/[facility] RDWSD 47.2(H) 37.0 - 46.0 [facility] RDWCV 13.7 11.5 - 14.1 % [facility] MPV 11.5 7.6 - 12.9 [facility] nRBC % Auto 0.0 % [facility] nRBC Abs Auto 0.000 0.000 - 0.000 x10(3)/[facility] Blood specimen (specimen) 08/29/2019 3:10 PM EDT 08/29/2019 3:50 PM EDT Narrative Resulting Agency Comment Spec In Lab [place] SANDRA HEMATOLOGY ORDERABLE S Performing Organization Address [facility]/ZIP Co de Phone Number [facility] [place] [address] * Hepatic Function Panel (08/29/2019 3:10 PM EDT) [facility] Total Protein 7.1 6.1 - 8.0 gm/dL [facility] Albumin 4.0 3.2 - 5.2 gm/dL [facility] AST 25 0 - 30 unit/L [facility] ALT 19 0 - 30 unit/L [facility] Alk Phos 49 35 - 105 unit/L [facility] Total Bilirubin 0.7 0.2 - 1.3 mg/dL [facility] Bili, Direct 0.1 0.0 - 0.3 mg/dL [facility] Blood specimen (specimen) 08/29/2019 3:10 PM EDT 08/29/2019 3:52 PM EDT Narrative Resulting Agency Comment Spec In Lab Manish Benitez MD CHEMISTRY ORDERABL ES Performing Organization Address [facility] Co de Phone Number [facility] [place] [address] * TSH (08/29/2019 3:10 PM EDT) [facility] TSH 1.87 0.27 - 4.20 mcIU/mL [facility] Blood specimen (specimen) 08/29/2019 3:10 PM EDT 08/29/2019 3:52 PM EDT Narrative Resulting Agency Comment Spec In Lab Manish Benitez MD CHEMISTRY ORDERABL ES Performing Organization Address [facility]/ZIP Co de Phone Number [facility] [place] [place] [address] * (ABNORMAL) pro-Brain Natriuretic Peptide (08/29/2019 3:10 PM EDT) [facility] ProBNP 1,242(H) <=125 pg/mL [facility] Blood specimen (specimen) 08/29/2019 3:10 PM EDT 08/29/2019 3:52 PM EDT Narrative Resulting Agency Comment Spec In Lab Manish Benitez MD CHEMISTRY ORDERABL ES Performing Organization Address [facility]/ZIP Co de Phone Number [facility] [place] [place] [address] * CK (08/29/2019 3:10 PM EDT) [facility] CK, Total 96 0 - 160 unit/L [facility] Blood specimen (specimen) 08/29/2019 3:10 PM EDT 08/29/2019 3:52 PM EDT Narrative Resulting Agency Comment Spec In Lab Manish Benitez MD CHEMISTRY ORDERABL ES Performing Organization Address [facility] Co de Phone Number [facility] [place] [place] [address] * Troponin (08/29/2019 3:10 PM EDT) [facility] Troponin-T <0.01 0.00 - 0.00 ng/mL [facility] Comment: The 99th percentile for Troponin T is less than 0.01 ng/mL, any detectable cTnT concentration using this assay should be considered elevated. According to the third universal definition of myocardial infarction the following criteria with a clinical presentation consistent with acute myocardial ischemia meets the diagnosis for a myocardial infarction ([place]). Detection of a rise and/or fall of cTnT, with at least one value greater than the 99th percentile (> or = 0.01) and with at least one of the following ?? Symptoms of ischemia ?? New or presumed new significant GQ-fnxjtqm-K wave (ST-T) changes or new left bundle [...] additional sample may be indicated. Reference: Third [place] Definition of Myocardial Infarction. Journal of the [place] College [employer] Cardiology 2012;60:1581-98 Blood specimen (specimen) 08/29/2019 3:10 PM EDT 08/29/2019 3:52 PM EDT Narrative Resulting Agency Comment Spec In Lab Manish Bentiez MD CHEMISTRY ORDERABL ES Performing Organization Address [facility] de Phone Number [facility] [place] [address] * (ABNORMAL) APTT (08/29/2019 3:10 PM EDT) PTT 132(Criti edy) 25 - 37 sec [facility] Comment: Critical Result called [...] MD HEMATOLOGY ORDERAB LES Performing Organization Address [facility] de Phone Number [facility] [place] [place] [address] * (ABNORMAL) Prothrombin Time (08/29/2019 3:10 PM EDT) PT 13.3(H) 9.4 - 12.5 sec [facility] INR 1.2 [facility] Comment: An INR <2.0 indicates [...] Lab Manish Benitez MD HEMATOLOGY ORDERAB LES [facility] [place] [address] * (ABNORMAL) Basic Metabolic Panel (non-fasting) (08/29/2019 3:10 PM EDT) Glucose Lvl 83 65 - 199 mg/dL [facility] Comment:Diabetes: >=200 mg/d L plus symptoms BUN 15 8 - 18 mg/dL [facility] Creatinine 0.84 0.70 - 1.20 mg/dL [facility] Sodium 138 135 - 145 mmol/L [facility] Potassium 4.2 3.5 - 5.0 mmol/L [facility] Comment: Please note: ??Patients with WBC >100,000 may have falsely elevated Potassium levels. ??For accurate Potassium quantification in these patients send serum separator tube (gold top) for subsequent determinations. ??Contact the Clinical Chemistry Laboratory if there are any questions. Chloride 105 98 - 107 mmol/L [facility] CO2 19(L) 22 - 31 mmol/L [facility] Anion Gap 14 5 - 15 mmol/L [facility] Calcium 9.2 8.5 - 10.5 mg/dL [facility] Estimated GFR 81 >=60 mL/min/1. 73 m?? [facility] Comment: The eGFR was calculated using the CKD-EPI equation. As with all creatinine based estimates of kidney function, eGFR values calculated with the CKD-EPI equation are not accurate in patients with acute kidney failure, extremes of body mass or the acutely ill. [email or web address] eGFR 94 >=60 mL/min/1. 73 m?? [facility] Comment: The eGFR was calculated using the CKD-EPI equation. As with all creatinine based estimates of kidney function, eGFR values calculated with the CKD-EPI equation are not accurate in patients with acute kidney failure, extremes of body mass or the acutely ill. [email or web address] Blood specimen (specimen) 08/29/2019 3:10 PM EDT 08/29/2019 3:52 PM EDT Narrative Resulting Agency Comment Spec In Lab Manish Benitez MD CHEMISTRY ORDERABL ES [facility] [place] [address] documented in this encounter Visit Diagnoses Not on filedocumented in this encounter Admitting Diagnoses Diagnosis NSTEMI (non-ST elevated myocardial infarction) Acute myocardial infarction, subendocardial infarction, episode of care unspecified documented in this encounter Administered Medications Inactive Administered Medications - up to 3 most recent administrations Medication Order MAR Action Action Date Dose Rate Site DULoxetine DR (Cymbalta) capsule 60 mg 60 mg, Oral, NIGHTLY, First dose on Wed08/29/19 at 2100, Until Discontinued, Routine Given 08/30/2019 8:30 PM EDT 60 mg Given 08/29/2019 8:48 PM EDT 60 mg fentaNYL 50 mcg/mL multi-dose injection ONCE PRN, Starting on Wed08/30/19 at 1405, Until Wed08/30/19 at 1530, Intra-Operative (Intra-Procedure), Routine Given 08/30/2019 2:05 PM EDT 25 mcg gabapentin (Neurontin) capsule 300 mg 300 mg, Oral, 2 TIMES DAILY, First dose on Wed08/29/19 at 2100, Until Discontinued, Routine Given 08/31/2019 8:18 AM EDT 300 mg Given 08/30/2019 8:30 PM EDT 300 mg Given 08/30/2019 8:42 AM EDT 300 mg heparin (Porcine) subcutaneous injection 5,000 Units 5,000 Units, Subcutaneous, EVERY 12 HOURS SCHEDULED (2 times per day), First dose on Wed08/30/19 at 2100, Until Discontinued, Routine Given 08/31/2019 8:18 AM EDT 5,000 Units Given 08/30/2019 8:31 PM EDT 5,000 Units iohexoL (OMNIPAQUE) 350 mg/mL solution ONCE PRN, Starting on Wed08/30/19 at 1428, Until Wed08/30/19 at 1530, Cath (Intra-Procedure), Routine Given 08/30/2019 2:28 PM EDT 55 mLs midazolam (PF) (VERSED) multi-dose injection ONCE PRN, Starting on Wed08/30/19 at 1404, Until Wed08/30/19 at 1530, Cath (Intra-Procedure), Routine Given 08/30/2019 2:04 PM EDT 1 mg topiramate (Topamax) tablet 100 mg 100 [...] Given 08/30/2019 8:43 AM EDT 50 mg verapamiL (ISOPTIN) injection ONCE PRN, Starting on Wed08/30/19 at 1414, Until Wed08/30/19 at 1530, Administer over 2 Minutes, Cath (Intra-Procedure) Given 08/30/2019 2:14 PM EDT 2.5 mg documented in this encounter Active [...] area)1530 (MAY Unhold - Provider: Admin Adt) atorvastatin (Lipitor) tablet 80 mg (CANCELED) 80 mg, Oral, EVERY EVENING, First dose on Wed08/29/19 at 1715, Until Discontinued, Routine 1701 (Given - Provider: Mark Nick RN) 1357 ([facility] Hold - Provider: Admin Adt - Reason: Transfer to a Procedural area)1530 ([facility] Unhold - Provider: Admin Adt) clopidogreL (Plavix) tablet 75 mg (CANCELED) 75 mg, Oral, DAILY, First dose on Wed08/30/19 at 0900, Until Discontinued, Routine 0842 (Given - Provider: Mark Nick RN)1357 ([facility] Hold - Provider: Admin Adt - Reason: Transfer to a Procedural area)1530 ([facility] Unhold - Provider: Admin Adt) DULoxetine DR (Cymbalta) capsule 60 mg 60 mg, Oral, NIGHTLY, First dose on Wed08/29/19 at 2100, Until Discontinued, Routine 2047 (Given - Provider: Efrain Verma RN) 1357 ([facility] Hold - Provider: Admin Adt - Reason: Transfer to a Procedural area)153 ([facility] Unhold - Provider: Admin Adt)2029 (Given - Provider: Gauri Arroyo, ERWIN) furosemide (LASIX) injection 40 mg (COMPLETED) 40 mg, Intravenous, ONCE, 1 dose, On Wed08/29/19 at 1800, Routine 1724 (Given - Provider: Mark Nick RN) gabapentin (Neurontin) capsule 300 mg 300 mg, Oral, 2 TIMES DAILY, First dose on Wed08/29/19 at 2100, Until Discontinued, Routine 2047 (Given - Provider: Efrain Verma RN) 0842 (Given - Provider: Mark Nick RN)1357 ([facility] Hold - Provider: Admin Adt - Reason: Transfer to a Procedural area)153 ([facility] Unhold - Provider: Admin Adt)2029 (Given - Provider: Gauri Arroyo RN) 0818 (Given - Provider: Maia Vásquez, ERWIN) heparin (Porcine) subcutaneous injection 5,000 Units 5,000 Units, Subcutaneous, EVERY 12 HOURS SCHEDULED (2 times per day), First dose on Wed08/30/19 at 2100, Until Discontinued, Routine 2030 (Given - Provider: Gauri Arroyo, ERWIN) 0818 (Given - Provider: Maia Vásquez RN) potassium chloride ER (K-Dur/Klor-Con) tablet 40 mEq (COMPLETED) 40 mEq, Oral, ONCE, 1 dose, On Wed08/30/19 at 1045, 20 mEq tablet may be dissolved in water for administration, Routine 1027 (Given - Provider: Mark Nick, ERWIN) topiramate (Topamax) tablet 100 mg 100 mg, Oral, NIGHTLY, First dose on Wed08/29/19 at 2100, Until Discontinued, DO NOT SPLIT, CRUSH OR OPEN, Routine 2048 (Given - Provider: Efrain Verma, ERWIN) 1357 ([facility] Hold - Provider: Admin Adt - Reason: Transfer to a Procedural area)1530 ([facility] Unhold - Provider: Admin Adt)203 (Given - Provider: Gauri Arroyo RN) topiramate (Topamax) tablet 50 mg 50 [...] PRN, Starting on Wed08/29/19 at 1632, Until Aura 08/31/19 at 2025, Pain, Headaches, Maximum dose of acetaminophen is [...] PRN, Starting on Wed08/29/19 at 1632, Until Aura 08/31/19 at 2024, Chest pain, May repeat every [...] PRN, Starting on Wed08/29/19 at 1632, Until Aura 08/31/19 at 2025, Sleep, insomnia, Routine 1357 ([facility] Hold - Provider: Admin Adt - Reason: Transfer to a Procedural area)1530 ([facility] Unhold - Provider: Admin Adt) Linked Groups [...] UA) documented in this encounter Care Teams Qa Auditor Relationship Specialty Start Date End Date Tim Rogers DNP PCP - General Family Medicine 08/28/19 06/08/21 documented as of this encounter
--- OUTSIDE RECORDS SUMMARY | 2023-09-20 14:41 | XMS_ITS | Encounter Summary ---
Author Organization [facility] Address [address] [place] [address] Care Team Providers Care Art Objects Repairer Name Role Phone Unavailable Primary Care Provider Unavailabl e Encounter Details Date Type Department Care Team (Late st Contact Info) Description 01/02/2000 Results Only [facility] conversion [address] [place] [address] Channing Brand MD [address] [place] [address] Social History Tobacco Use Types Packs/Day Years Used Date Smoking Tobacco: Never Assessed Sex and Gender Information Value Date Recorded Sex Assigned at Not on file Gender Identity Not on file Sexual Orientation Not on file documented as of this encounter Plan of Treatment Not on file documented as of this encounter Procedures Procedure Name Priority Date/Time Associated Diagnosis Comments CYTOPATHOLOGY Routine 01/02/2000 0:00 EDT documented in this encounter Results * CYTOPATHOLOGY (01/02/2000 0:00 EDT) Pathology Report: CYTOPATHOLOGY REPORT Reports generated via electronic interface contain original data; however they are lacking the format of the original report. Caution should be taken when reading/interpreti ng unformatted reports. Name: ? LOIDA ROQUE ? Accession #: ? [id number] : ? 1970 (Age: 29) ??F ?Collect Date: ? 01/02/2000 Location: ? [facility] ? Receive Date: ? 01/06/2000 Provider: ?CHANNING BRAND MD Copy to: ? Specimen/Source: ?ThinPrep Pap Test, Cervix/Endocervix Last Menstrual Period: ? 12/28/99 Other: ? Additional clinical information: Please cates pap smear, pt is a pre-op ? SPECIMEN ADEQUACY ? Satisfactory for evaluation. GENERAL CATEGORIZATION ? Within Normal Limits ? Document reviewed and electronically signed by: ? HARINI Saha(ASCP) ? Report Date: ??01/07/2000 10:15 End of Report [facility] 01/02/2000 01/06/2000 Channing Brand MD PATHOLOGY ORDERABLES [facility] [address] [place] [address] documented in this encounter Visit Diagnoses Not on filedocumented in this encounter
--- OUTSIDE RECORDS SUMMARY | 2023-09-20 14:41 | XMS_ITS | Encounter Summary ---
Author Organization [facility] Address [facility] [place] [address] Care Team Providers Care Quill Buncher And Sorter Name Role Phone Faheem Romero MD Primary Care Provider [phone] Reason for Visit * Reason Comments Allergic Rhinitis Encounter Details Date Type Department Care Team (Late st Contact Info) Description 06/26/2010 9:15 AM EDT [place] [address] Lashonda York MD [facility] [address] ALLERGY [place] [address] Asthma (Primary Dx); Rhinitis; Rhinitis, nonallergic, chronic Discharge Disposition: Home Social History Tobacco Use Types Packs/Day Years Used Date Smoking Tobacco: Never Assessed Sex and Gender Information Value Date Recorded Sex Assigned at Not on file Gender Identity Not on file Sexual Orientation Not on file documented as of this encounter Last Filed Vital Signs Vital Sign Reading Time Taken Comments Blood Pressure 108/69 06/26/2010 9:55 AM EDT Pulse 69 06/26/2010 9:55 AM EDT Temperature - - Respiratory Rate - - Oxygen Saturation - - Inhaled Oxygen Concentration - - Weight 83.9 kg (185 lb) 06/26/2010 9:55 AM EDT Height 162.6 cm (5' 4) 06/26/2010 9:55 AM EDT Body Mass Index 31.76 06/26/2010 9:55 AM EDT documented in this encounter Progress Notes * Lashonda York MD - 06/26/2010 12:08 PM EDT HISTORY OF PRESENT ILLNESS: This patient is seen at the request of FAHEEM ROMERO MD for allergyevaluation.She relates a h/o of rhinorrhea,clear,nasal congestion,sinus pressure,post nasal drainage,ear pressure and sneezing occurring for years with no seasonal pattern.She cites cats and perfumesas triggers. Claritin is helpful and she uses no nasal sprays.She notes clear rhinorrhea during meals regardless of what food she is eating.No allergy testing has been done. She gives a h/o of developing wheezing, cough and shortness of breath on 2 occasions in the past 2 years both occurred after she got a flu injection and during a respiratory infection.She was treatedwith albuterol and presnidone with improvement.She rarely uses albuterol now,however does note thatexercise can lead to wheezing, but does not use albuterol pre-exercise. PAST MEDICAL/SURGICAL HISTORY: Asthma,mild intermittent;rhinitis,chronic Meds: Claritin 10 mg., albuterol prn,cymbalta Drug allergies: none Food allergies: none FH: father has allergies,mother has food allergy SH: Non-smoker Environmental: 1 dog,no smokers,hot air heating,+ carpet REVIEW OF SYSTEMS: General: Fatigue,insomnia EENT: See HPI Respiratory: See HPI,also snores Cardiac: Neg. Neuro: neg. GI: heartburn : Nocturia 1-2 x Musculoskeletal: arthralgias Skin: Easy bruising PHYSICAL EXAMINATION: Filed Vitals: 06/26/10 0955 BP: 108/69 Pulse: 69 Normal Abnormal Comments General X Skin X Eyes X Ears X Nose x Clear secretions,congested mucosa Throat x Clear drainage Lungs X Heart X DIAGNOSTIC DATA: Spirometry was done: FVC: 122% pred. FEV1: 126% pred FEV1/FVC: 104% pred FEF 25-75%: 133% pred WNL Allergy Skin Testing: Dust mites: D. Farinae, D. Pteronyssinus Animals: Cat, Dog Grass pollen: Axel Tree pollen: Birch, Shay, Maple, [place], Beech, [place] pollen: [place], Short Ragweed, Pigweed, Molds: Alternaria, Penicillium, Cladosporium, Aspergillus mix, Helminthosporium Controls: Positive, Negative 20 allergens tested No + reactions except histamine,remainder negative ASSESSMENT AND PLAN: This patient has negative allergy skin tests to inhalant allergens as listed above.For symptoms of non-allergic rhinitis she will begin a trial of atrovent 0.03% nasal spray,2 sen up to 3 x /day.She will continue claritin 10 mg./ day as this has been helpful in reducing her symptoms. For mild intermittent asthma she will use albuterol prn ;if she requires it > 2 x/week she wouldneed to be on a controller medication ,such as Flovent.I gave her a spacer to use with her albuterol MDI. She has not ever received the Pneumovax and should get this since it is now recommend for patients with asthma. A followup visit was not scheduled but I would be glad to see her in the future if needed. TOTAL VISIT TIME: 35 minutes of this 60 minute visit were spent in counseling regarding evaluation and treatment of asthma and chronic rhinitis with the patient.. I appreciate the opportunity to participate in the care of this patient. CC: FAHEEM ROMERO MD documented in this encounter Plan of Treatment Upcoming Encounters Date Type Department Care Team (Late st Contact Info) Description 10/08/2023 8:30 AM EDT Tech Visit Vascular Lab at [place] [phone] Jose Cook 10/08/2023 9:30 AM EDT Office [place] [phone] MD [facility] [place] [address] 10/21/2023 10:30 AM EDT Appointment [place] [address] Mary Reyes APRN [facility] [place] [address] 10/21/2023 11:30 AM EDT Appointment Nuclear Medicine at [place] [phone] Mary Reyes, [facility] [place] [address] 10/21/2023 12:30 PM EDT Appointment Nuclear Medicine at [place] [phone] Mary Reyes, [facility] [place] [address] 10/21/2023 1:30 PM EDT Appointment [place] [address] Mary Reyes, [facility] [place] [address] 10/21/2023 2:30 PM EDT Appointment [place] [address] Mary Reyes, [facility] [place] [address] 10/26/2023 4:00 PM EDT Office Visit Cardiology at [address] [phone] Jaspreet Kinsey MD [facility] [place] [address] 10/28/2023 9:00 AM EDT Office [place] [address] 10/29/2023 10:00 AM EDT Clinical [place] [address] 10/29/2023 10:15 AM EDT Procedure [place] [address] 11/01/2023 5:00 PM EDT Office Visit Gastroenterology at [place] [phone] Selene Browning, PhD [facility] [place] [address] 11/22/2023 4:40 PM EDT Office Visit Cardiology at [address] Porsha Mcdaniels MD [facility] [place] [address] 12/13/2023 10:00 AM EDT Clinical [place] [address] [facility] [place] [address] Scheduled Orders Name Type Priority Associated Diagnoses Orde r Schedule Spirometry without bronchodilator PFT Routine Asthma Ordered: 06/26/2010 documented as of this encounter Visit Diagnoses Diagnosis Asthma- Primary Unspecified asthma Rhinitis Chronic rhinitis Rhinitis, nonallergic, chronic Chronic rhinitis documented in this encounter Care Teams Quill Buncher And Sorter Relationship Specialty Start Date End Date Faheem Romero MD [facility] 1 [facility] [place] [address] PCP - General 06/11/10 08/27/19 documented as of this encounter
--- OUTSIDE RECORDS SUMMARY | 2023-09-20 14:41 | XMS_ITS | Encounter Summary ---
Author Organization [facility] Address [address] [place] [address] Care Team Providers Care Wet Inspector Optical Glass Name Role Phone Unknown, Provider Primary Care Provider [phone] Encounter Details Date Type Department Care Team (Late st Contact Info) Description 08/28/[address] [facility] Pathology & Laboratory Medicine - [address] [address] Outr Resulting Lab, Provider Social History Tobacco [...] Procedure Name Priority Date/Time Associated Diagnosis Comments ZZCOVID-19 TEST UVC LAB PCR Today 08/28/2019 21:50 EDT COVID-19 TESTING Routine 08/28/2019 21:5 0 EDT documented in this encounter Results * COVID-19 TEST [facility] LAB PCR (08/28/2019 21:50 EDT) Swab ENTIRE NASOPHARYNX / Unknown 08/28/2019 21:50 EDT 08/29/2019 8:30 EDT Provider Outr Resulting Lab MICROBIOLOGY - GENERAL ORDERABLES [facility] [address] [place] [address] * COVID-19 TESTING (08/28/2019 21:50 EDT) COVID-19 rt-PCR Result Negative Negative 08/29/2019 12:31 EDT [facility] Comment: This test has not been FDA cleared or approved. This test has been authorized by FDA under an EUA for use by authorized laboratories. This test has been authorized only for detection of nucleic acid from 2019-nCoV, not for any other viruses or pathogens. This test is only authorized for the duration of the declaration that circumstances exist justifying the authorization of emergency use of in vitro diagnostic tests for detection and/or diagnosis of 2019-nCoV under section 564(b)(1) of Act, 21 U.S.C ?? 360bbb-3(b) (1), unless the authorization is terminated or revoked sooner. Negative results do not preclude 2019-nCoV infection and should not be used as the sole basis for treatment or other patient management decisions. Negative results must be combined with clinical observations, patient history, and epidemiological information. Performed on the ProRadisher Fusion instrument Performing Lab [place] [facility] Lab 08/29/2019 12:31 EDT [facility] Swab 08/28/2019 21:5 0 EDT 08/29/2019 8:30 EDT Provider Outr Resulting Lab MICROBIOLOGY - GENERAL ORDERABLES [facility] [address] [place] [address] documented in this encounter Visit Diagnoses Not on filedocumented in this encounter Care Teams Wet Inspector Optical Glass Relationship Specialty Start Date End Date Unknown, Provider, PCP - General 01/28/10 documented as of this encounter
--- OUTSIDE RECORDS SUMMARY | 2023-09-20 14:41 | XMS_ITS | Encounter Summary ---
Author Organization [facility] Address [address] [place] [address] Care Team Providers Care Quality Assurance Supervisor Final Name Role Phone Unknown, Provider Primary Care Provider Encounter Details Date Type Department Care Team (Late st Contact Info) Description 09/06/2020 Lab Requisition [facility] Pathology & Laboratory Medicine - [address] [address] Outr Resulting Lab, Provider Social History Tobacco [...] Comments ZZCOVID-19 TEST [facility] LAB PCR Today 09/05/2020 14:00 EDT COVID-19 TESTING Routine 09/05/2020 14:0 0 EDT documented in this encounter Results * COVID-19 TEST [facility] LAB PCR (09/05/2020 14:00 EDT) Swab ENTIRE NASOPHARYNX / Unknown 09/05/2020 14:00 EDT 09/06/2020 16:13 EDT Provider Outr Resulting Lab MICROBIOLOGY - GENERAL ORDERABLES [facility] [address] [place] [address] * COVID-19 TESTING (09/05/2020 14:00 EDT) COVID-19 rt-PCR Result Negative Negative 09/07/2020 14:05 EDT [facility] Comment: This test has [...] clinical observations, patient history, and epidemiological information. This test was developed and its performance characteristics determined by [facility]. It has not been cleared or approved by the US Food and Drug Administration. FDA does not require this test to go through premarket FDA review. This test is used for clinical purposes. It should not be regarded as investigational or for research. This laboratory is certified under the Clinical Laboratory Improvement Amendments (CLIA) as qualified to perform high complexity clinical laboratory testing. This test is based on the [facility] COVID-19 Emergency Use Authorization (EUA) assay, with minor modification as defined by the FDA Performed on the Ach[employer] Powero 7 Flex RT-PCR System. Performing Lab [facility] Lab 09/07/2020 14:05 EDT [facility] Swab 09/05/2020 14:0 0 EDT 09/06/2020 16:13 EDT Provider Outr Resulting Lab MICROBIOLOGY - GENERAL ORDERABLES [facility] [address] [place] [address] documented in this encounter Visit Diagnoses Not on filedocumented in this encounter Care Teams Quality Assurance Supervisor Final Relationship Specialty Start Date End Date Unknown, Provider, PCP - General 01/28/10 documented as of this encounter
--- OUTSIDE RECORDS SUMMARY | 2023-09-20 14:41 | XMS_ITS | Encounter Summary ---
Author Organization [facility] [place] [address] Care Team Providers Care Cook Chill Technician Name Role Phone Tim Rogers DNP Primary Care Provider Encounter Details Date Type Department Care Team (Late st Contact Info) Description 08/28/2019 Ancillary Procedure [place] [phone] Veronica Bello, RADIO TELEVISION ANNOUNCER [address] [place], [place] [id number] Social History Tobacco Use Types Packs/Day Years [...] AM EDT Tech [place] [phone] Jose Cook 10/08/2023 9:30 AM EDT Office [place] [phone] MD [facility] DR VASCULAR SURGERY [place], [place] [phone] 10/21/2023 10:30 AM EDT Appointment Nuclear Medicine at [address] Mary Reyes, [facility] [address] 10/21/2023 11:30 AM EDT Appointment Nuclear Medicine at [address] Mary Reyes [facility] [place] [address] 10/21/2023 12:30 PM EDT Appointment Nuclear Medicine at [place] [phone] Mary Reyes [facility] [place] [address] 10/21/2023 1:30 PM EDT Appointment Nuclear Medicine at [place] [phone] Mary Reyes [facility] [place] [address] 10/21/2023 2:30 PM EDT Appointment Nuclear Medicine at [place] [phone] Mary Reyes [facility] [place] [address] 10/26/2023 4:00 PM EDT Office Visit Cardiology at [address] [place] [phone] Jaspreet Kinsey MD [facility] [place] [address] 10/28/2023 9:00 AM EDT Office [place] [address] 10/29/2023 10:00 AM EDT Clinical [place] [address] 10/29/2023 10:15 AM EDT Procedure [place] [address] 11/01/2023 5:00 PM EDT Office [place] [phone] Selene Browning, PhD [facility] [place] [address] 11/22/2023 4:40 PM EDT Office Visit Cardiology at [address] [address] Porsha Mcdaniels MD [facility] [place] [address] 12/13/2023 10:00 AM EDT Clinical [place] [address] [facility] [place] [address] documented as of this encounter Procedures Procedure Name Priority Date/Time Associated Diagnosis Comments FILM LIBRARY STORAGE ONLY DX CHEST Routine 08/28/2019 12:00 AM EDT documented in this encounter Results * Film Library- Storage Only DX Chest (08/28/2019 12:00 AM EDT) Narrative [facility] - 08/29/2019 1:45 PM EDT This exam is auto-finalizing. It's purpose is for storage only. Veronica Bello APRN IMG FILM LIBRARY ORD ERABLES [facility] [place] documented in this encounter Visit Diagnoses Not on filedocumented in this encounter Care Teams Cook Chill Technician Relationship Specialty Start Date End Date Tim Rogers DNP PCP - General Family Medicine 08/28/19 06/08/21 documented as of this encounter
--- OUTSIDE RECORDS SUMMARY | 2023-09-20 14:41 | XMS_ITS | Encounter Summary ---
Author Organization [facility] [place] [address] Care Team Providers Care General Helper Name Role Phone Dustin Nino MD Primary Care Provider [phone] Encounter Details Date Type Department Care Team (Late st Contact Info) Description 06/20/2010 [place] [address] Lashonda York MD [facility] DR ALLERGY [place] [address] Social History Tobacco Use Types Packs/Day Years [...] AM EDT Tech [place] [address] Jose Cook 10/08/2023 9:30 AM EDT Office Visit [place] [phone] MD [facility] [place] [address] 10/21/2023 10:30 AM EDT Appointment [place] [address] Mary eRyes [facility] [place] [address] 10/21/2023 11:30 AM EDT Appointment [place] [address] [address] Reyes [facility] [place] [address] 10/21/2023 12:30 PM EDT Appointment [place] [address] [address] Reyes [facility] [place] [address] 10/21/2023 1:30 PM EDT Appointment [place] [address] Mary Reyes [facility] [place] [address] 10/21/2023 2:30 PM EDT Appointment [place] [address] Mary Reyes [facility] [place] [address] 10/26/2023 4:00 PM EDT Office Visit Cardiology at [address] [phone] Jaspreet Kinsey MD [facility] [place] [address] 10/28/2023 9:00 AM EDT Office [place] [address] 10/29/2023 10:00 AM EDT Clinical [place] [address] 10/29/2023 10:15 AM EDT Procedure [place] [address] 11/01/2023 5:00 PM EDT Office Visit [place] [address] Selene Browning, PhD [facility] [place] [address] 11/22/2023 4:40 PM EDT Office Visit Cardiology at [address] [address] Porsha Mcdaniels MD [facility] [place] [address] 12/13/2023 10:00 AM EDT Clinical Support [place] [address] Lucero Romero, [place] [facility] [place] [address] documented as of this encounter Visit Diagnoses Not on filedocumented in this encounter Care Teams General Helper Relationship Specialty Start Date End Date Dustin Nino MD [facility] [address] [place] [address] PCP - General 06/11/10 08/27/19 documented as of this encounter
--- OUTSIDE RECORDS SUMMARY | 2023-09-20 14:41 | XMS_ITS | Encounter Summary ---
Author Organization [facility] Address [address] [place] [address] Care Team Providers Care Veneer Joiner Name Role Phone Unknown, Provider Primary Care Provider [phone] Encounter Details Date Type Department Care Team (Late st Contact Info) Description 09/16/2020 Lab Requisition [facility] Pathology & Laboratory Medicine - [address] [address] Outr Resulting Lab, Provider Social History Tobacco [...] Procedure Name Priority Date/Time Associated Diagnosis Comments JENNA ANTIBODY PANEL Routine 09/16/2020 13 :43 EDT ANTI NUCLEAR AB (KATHRINE), IFA Routine 09/16/2020 13:43 EDT IGE Routine 09/16/2020 13:43 EDT documented in this encounter Results * IGE (09/16/2020 13:43 EDT) IgE 13 <158 IU/mL 09/18/2020 8:45 EDT [facility] Blood VENOUS BLOOD / Unknown 09/16/2020 13:43 EDT 09/16/2020 20:51 EDT Provider Outr Resulting Lab CHEMISTRY & BLOOD GAS ORDERABLES [facility] [address] [place] [address] * EXTRACTABLE NUCLEAR ANTIGEN PANEL (09/16/2020 13:43 EDT) SSA Antibody 1.2 <20.0 Units 09/17/2020 15:28 EDT [facility] Comment: ? Negative: <20.0 Units ? Weak Positive: 20.0 - 39.9 Units ? Moderate Positive: 40.0 - 80.0 Units ? Strong Positive: >80.0 Units Results were obtained with the extraTKT QUANTA Lite SS-A VAIBHAV. ??SS-A values obtained with different manufacturers' assay methods may not be used interchangeably. ??The magnitude of the reported IgG levels cannot be correlated to an endpoint titer. SSB Antibody 4.9 <20.0 Units 09/17/2020 15:28 [facility] Comment: ? Negative: <20.0 Units ? Weak Positive: 20.0 - 39.9 Units ? Moderate Positive: 40.0 - 80.0 Units ? Strong Positive: >80.0 Units Results were obtained with the NumariVA QUANTA Lite SS-B VAIBHAV. ??SS-B values obtained with different manufacturers' assay methods may not be used interchangeably. ??The magnitude of the reported IgG levels cannot be correlated to an endpoint titer. SM (Alcantar) Antibody 3.4 <20.0 Units 09/17/2020 15:28 [facility] Comment: ? Negative: <20.0 Units ? Weak Positive: 20.0 - 39.9 Units ? Moderate Positive: 40.0 - 80.0 Units ? Strong Positive: >80.0 Units Results were obtained with the Num[employer] QUANTA Lite Sm VAIBHAV. ??Sm values obtained with different manufacturers' assay methods may not be used interchangeably. ??The magnitude of the reported IgG levels cannot be correlated to an endpoint titer. OYSTER WORKER Antibody 1.5 <20.0 Units 09/17/2020 15:28 EDT [facility] Comment: ? Negative: <20.0 Units ? Weak Positive: 20.0 - 39.9 Units ? Moderate Positive: 40.0 - 80.0 Units ? Strong Positive: >80.0 Units Results were obtained with the Iker[employer]va Quanta Lite OYSTER WORKER VAIBHAV. OYSTER WORKER values obtained with different assembler mechanical ordnance's assay methods may not be used interchangeaby. ??The magnitude of the reported IgG levels cannot be be correlated to an endpoint titer. A positive result in the Quanta Lite OYSTER WORKER VAIBHAV indicates the presence of antibodies reactive with the OYSTER WORKER/Sm complex but cannot distinguish between anti-Sm and anti-OYSTER WORKER activity. Blood VENOUS BLOOD / Unknown 09/16/2020 13:43 EDT 09/16/2020 20:51 EDT Provider Outr Resulting Lab IMMUNOLOGY A ND SEROLOGY ORDERABLES Performing Organization Address City/State/[facility] Co de Phone Number [facility] [address] [place] [address] * (ABNORMAL) ANTI NUCLEAR AB (KATHRINE), IFA (09/16/2020 13:43 EDT) KATHRINE Interpretation Positive(A) Negative 09/17/2020 15:08 EDT [facility] Comment: For titers greater than or equal to 1:160 (except the centromere and nucleolar patterns) it is recommended that specific follow-up autoantibody testing ??(such as for dsDNA and Extractable Nuclear Antigens) be performed on all diffuse and/or speckled patterns NOTE: For add-on testing dsDNA is stable for 7 days refrigerated while Extractable Nuclear Antigens are only stable for 48 hours refrigerated. Cytoplasmic Pattern Noted, Reticular/Mitochondrion-like KATHRINE Titer and Pattern 1 1:160 Speckled 09/17/2020 15:08 EDT [facility] Blood VENOUS BLOOD / Unknown 09/16/2020 13:43 EDT 09/16/2020 20:51 EDT Narrative [facility] - 09/17/2020 15:08 EDT Results were obtained with the extraTKT NOVA Lite HEp-2 KATHRINE Kit by indirect immunofluorescence. Provider Outr Resulting Lab IMMUNOLOGY A ND SEROLOGY ORDERABLES [facility] [address] [place] [address] documented in this encounter Visit Diagnoses Not on filedocumented in this encounter Care Teams Veneer Joiner Relationship Specialty Start Date End Date Unknown, Provider, PCP - General 01/28/10 documented as of this encounter
--- OUTSIDE RECORDS SUMMARY | 2023-09-20 14:41 | XMS_ITS | Encounter Summary ---
Author Organization [facility] Address [address] [place] [address] Care Team Providers Care Oral And Maxillofacial Surgeon Name Role Phone Unknown, Provider Primary Care Provider Encounter Details Date Type Department Care Team (Late st Contact Info) Description 05/18/2020 Lab Requisition [facility] Pathology & Laboratory Medicine - [address] [address] Outr Resulting Lab, Provider Social History Tobacco [...] Procedure Name Priority Date/Time Associated Diagnosis Comments HIV 1/2 ANTIGEN AND ANTIBODY, 4TH GENERATION Routine 05/17/2020 14:00 EST documented in this encounter Results * HIV 1/2 ANTIGEN AND ANTIBODY, 4TH GENERATION (05/17/2020 14:00 EST) HIV 1 and 2 Antibody/p24 Antigen, 4th Generation Negative Negative 05/20/2020 11:35 EDT [facility] Comment: If acute HIV-1 infection is suspected in a high risk ??patient, submit plasma specimen for HIV-1 RNA quantitation test. Fourth Generation assay performed on the [employer]. Blood VENOUS BLOOD / Unknown 05/17/2020 14:00 EST 05/19/2020 16:27 EDT Provider Outr Resulting Lab IMMUNOLOGY A ND SEROLOGY ORDERABLES [facility] [address] [place] [address] documented in this encounter Visit Diagnoses Not on filedocumented in this encounter Care Teams Oral And Maxillofacial Surgeon Relationship Specialty Start Date End Date Unknown, Provider, PCP - General 01/28/10 documented as of this encounter
--- OUTSIDE RECORDS SUMMARY | 2023-09-20 14:41 | XMS_ITS | Referral Summary ---
Author Organization [facility] Address [address] [place] [address] Care Team Providers Care Veterinary Bacteriologist Name Role Phone Unknown, Provider Primary Care Provider Social History Tobacco Use Types Packs/Day Years Used Date Smoking Tobacco: Never Assessed Sex and Gender Information Value Date Recorded Sex Assigned at Not on file Gender Identity Not on file Sexual Orientation Not on file Plan of Treatment Not on file Procedures Procedure Name Priority Date/Time Associated Diagnosis Comments HEPATITIS C AB W REFLEX TO HCV RNA BY PCR Routine 05/17/2020 14:00 EST from Last 3 Months or Most Recently Relevant to Health Maintenance Results * HEPATITIS C AB W REFLEX TO HCV RNA BY PCR (05/17/2020 14:00 EST) Hep C Antibody Negative Negative 05/20/2020 11:15 EDT [facility] Blood VENOUS BLOOD / Unknown 05/17/2020 14:00 EST 05/19/2020 16:37 EDT Provider Outr Resulting Lab CHEMISTRY & BLOOD GAS ORDERABLES [facility] [address] [place] [address] from Last 3 Months or Most Recently Relevant to Health Maintenance Care Teams Veterinary Bacteriologist Relationship Specialty Start Date End Date Unknown, Provider, PCP - General 01/28/10
--- OUTSIDE RECORDS SUMMARY | 2023-09-20 14:41 | XMS_ITS | Encounter Summary ---
Author Organization [facility] Address [address] [place] [address] Care Team Providers Care Consumer Affairs Director Name Role Phone Unavailable Primary Care Provider Unavailabl e Encounter Details Date Type Department Care Team (Late st Contact Info) Description 01/19/2000 Results Only [facility] conversion [address] [place] [address] Channing Brand MD [address] [place] [address] Social History Tobacco Use Types Packs/Day Years Used Date Smoking Tobacco: Never Assessed Sex and Gender Information Value Date Recorded Sex Assigned at Not on file Gender Identity Not on file Sexual Orientation Not on file documented as of this encounter Plan of Treatment Not on file documented as of this encounter Procedures Procedure Name Priority Date/Time Associated Diagnosis Comments SURGICAL PATHOLOGY Routine 01/19/2000 0:00 EST documented in this encounter Results * SURGICAL PATHOLOGY (01/19/2000 0:00 EST) Pathology Report: SURGICAL PATHOLOGY REPORT Reports generated via electronic interface contain original data; however they are lacking the format of the original report. Caution should be taken when reading/interpreti ng unformatted reports. Name: ? LOIDA ROQUE ? Accession #: ? [id number] ? : ? 1970 (Age: 29) ??F ? Collect Date: ? 01/19/2000 ? Location: ? [facility] ? Receive Date: ? 01/20/2000 ? Provider: CHANNING BRAND MD Copy to: ANGELY MCNALLY DNONFA CHITRA JOHN ? Final Pathologic Diagnosis: A. ?Pelvic sidewall, left, biopsy: 1. 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 B. ?Uterus and cervix, hysterectomy: 1. ?Endometrium: ? - Secretory endometrium. 2. ?Myometrium: ? - No pathologic features. 3. ?Serosa: ? - No pathologic features. 4. ?Cervix: ? - Chronic and acute cervicitis. Document reviewed and electronically signed by: Gerald Nino [facility] Report ??Date: 01/22/2000 16:44 By the signature above, the attending physician certifies that he/she has personally conducted a gross and/or microscopic examination of the described specimens and rendered or confirmed the above diagnosis. Specimen(s) Received: A. ?L pelvic sidewall (#1) B. ?Uterus (#2) Clinical History: ? Pelvic pain; adhesions Gross Description: ? Received in formalin labelled Stevna and #1. L pelvic sidewall is a gann-brown cylindrical piece of soft tissue that measures 2.5 x 0.4 x 0.3 cm. Submitted entirely as (A). Received in formalin labelled Stevan and #2. Uterus is a corpus uteri and cervix without attached adnexa. ??The uterus and cervix weigh 135 grams and measure 4.2 cm from cornu to cornu, 8.7 cm from fundus to cervix and 3.5 cm anterior to posterior. ??The uterus is bivalved into anterior and posterior halves. ??The endometrium is gann-pink and lush and measures 0.3 cm in diameter. The myometrium is gann-pink and trabeculated. ??There is a possible 0.2 cm myomatous nodule within the anterior half of the specimen. The serosal surface is gann-pavon. There are multiple small surgical defects within the serosa. ??The endocervix is gann-white and furrowed. ??The ectocervix is white, shiny and glistening. ??There is a discernible squamocolumnar junction. BLOCK RHODES B1,B2 ?Dredge Runner section of anterior endomyometrium B3 ?Possible myomatous nodule from the anterior half of the specimen B4 ?Dredge Runner section of posterior endomyometrium B5 ?Dredge Runner section of posterior endo- and ectocervix B6 ?Anterior endo- and ectocervix (Dr. Garcia)/[facility] End of Report [facility] 01/19/2000 01/20/2000 14: 59 EST Channing Brand MD PATHOLOGY ORDERABLES [facility] [address] [place] [address] documented in this encounter Visit Diagnoses Not on filedocumented in this encounter
--- OUTSIDE RECORDS SUMMARY | 2023-09-20 14:41 | XMS_ITS | Encounter Summary ---
Author Organization [facility] Address [address] [place] [address] Care Team Providers Care Strategic Manager Name Role Phone Unknown, Provider Primary Care Provider [phone] Encounter Details Date Type Department Care Team (Late st Contact Info) Description 01/07/2021 Lab Requisition [facility] Pathology & Laboratory Medicine - [address] [address] Outr Resulting Lab, Provider Social History Tobacco [...] Priority Date/Time Associated Diagnosis Comments [facility]OVID[facility]19 [facility] Today 01/06/2021 14:00 EDT COVID-19 TESTING Routine 01/06/2021 14:0 0 EDT documented in this encounter Results * COVID-19 TEST [facility] PCR (01/06/2021 14:00 EDT) Swab ENTIRE NASOPHARYNX / Unknown 01/06/2021 14:00 EDT 01/07/2021 17:19 EDT Provider Outr Resulting Lab MICROBIOLOGY - GENERAL ORDERABLES [facility] [address] [place] [address] * COVID-19 TESTING (01/06/2021 14:00 EDT) COVID-19 rt-PCR Result Negative Negative 01/08/2021 12:42 EDT [facility] Comment: This test has not [...] clinical observations, patient history, and epidemiological information. Testing was performed using the ric SARS-CoV-2 assay ([employer] on the Ric 6800 System Performing Lab Ric 68[address] [facility] 01/08/2021 12:42 EDT [facility] Swab 01/06/2021 14:0 0 EDT 01/07/2021 17:19 EDT Provider Outr Resulting Lab MICROBIOLOGY - GENERAL ORDERABLES Performing Organization Address City/State/[facility] Co de Phone Number [facility] [address] [place] [address] documented in this encounter Visit Diagnoses Not on filedocumented in this encounter Care Teams Strategic Manager Relationship Specialty Start Date End Date Unknown, Provider, PCP - General 01/28/10 documented as of this encounter
--- OUTSIDE RECORDS SUMMARY | 2023-09-20 14:41 | XMS_ITS | Encounter Summary ---
Author Organization [facility] Address [address] [place] [address] Care Team Providers Care Seismograph Operator Helper Name Role Phone Unavailable Primary Care Provider Unavailabl e Encounter Details Date Type Department Care Team (Late st Contact Info) Description 05/15/1999 Results Only [facility] conversion [address] [place] [address] Channing Brand MD [address] [place] [address] Social History Tobacco Use Types [...] Date/Time Associated Diagnosis Comments SURGICAL PATHOLOGY Routine 05/15/1999 15 :48 EST documented in this encounter Results * SURGICAL PATHOLOGY (05/15/1999 15:48 EST) Pathology Report: SURGICAL PATHOLOGY REPORT Reports generated via electronic interface contain original data; however they are lacking the format of the original report. Caution should be taken when reading/interpreti ng unformatted reports. Name: ? LOIDA ROQUE ? Accession #: ? [id number] ? : ? 1970 (Age: 29) ??F ? Collect Date: ? 05/15/1999 ? Location: ?Receive Date: ? 05/15/1999 ? Provider: CHANNING BRAND MD Copy to: CHANNING MCNALLY DNONFA CHITRA WALKER MD ? Final Pathologic Diagnosis: MICROSCOPIC DIAGNOSIS: ? 1. Endometrium, curettage: ?- Early secretory endometrium (day 17). ? 2. Soft tissue, left pelvic sidewall, biopsy: ?- Dense fibrous tissue and vascularized connective tissue. ? 3. Ovary, left, biopsy: ?- Ovarian cortex and portion of corpus luteum cyst. ? 4. Ovarian cyst, left, biopsy: ?- Corpus luteum cyst. ?- Ovarian cortex. ? 5. Uterus, biopsy: ?- Uterine serosa and myometrium with no pathologic features. ? Document reviewed and electronically signed by: Conversion for JAMESON WYLIE Report ??Date: 05/19/1999 00:00 By the signature above, the attending physician certifies that he/she has personally conducted a gross and/or microscopic examination of the described specimens and rendered or confirmed the above diagnosis. Specimen(s) Received: TISSUE SUBMITTED: ? 1. ??EMC ? 2. ??Lt pelvic sidewall ? 3. ??Lt ovarian bx ? 4. ??Lt ovarian cyst ? 5. ??Uterine bx CLINICAL DATA: ? Pelvic pain, vesicular lesion, persistent ovarian cyst Gross Description: GROSS: ? Received in formalin labelled Jude and #1 EMC are ? multiple gann-brown fragments, altogether 0.2 cc in volume. ??The ? specimen is submitted entirely as (A). ? Received in formalin labelled Jude and #2 Lt pelvic ? sidewall is an irregularly-shaped brown fragment, 1.8 x 1.0 x ? 0.4 cm. ??The specimen is bisected and submitted as (B). ? Received in formalin labelled Jude and #3 Lt ovarian bx ? is a single pavon-white fragment of tissue, 0.6 x 0.3 x 0.3 cm. ? The specimen is submitted intact as (C). ? Received in formalin labelled Jude and #4 Lt ovarian ? cyst is a brown-white fragment of tissue, received in two parts. ? The smaller fragment measures 0.6 cm in diameter and the larger ? 2.0 x 2.0 x 0.8 cm. ??The smaller fragment is submitted intact as ? (D) and the larger fragment which is received with multiple ? incisions running through it is submitted as (E) and (F). ? Received in formalin labelled Jude and #5 uterine bx is ? a single fragment of soft tissue, 0.6 x 0.3 x 0.3 cm. ??The outer ? surface is brown-gann. ??The specimen is submitted entirely as (G). ? (Dr. Jarrell)/angela ? End of Report [facility] 05/15/1999 15:4 8 EST 05/15/1999 15:49 EST Channing Brand MD PATHOLOGY ORDERABLES Performing Organization Address City/State/[facility] Co de Phone Number [facility] [address] [place] [address] documented in this encounter Visit Diagnoses Not on filedocumented in this encounter
--- OUTSIDE RECORDS SUMMARY | 2023-09-20 14:41 | XMS_ITS | Encounter Summary ---
Author Organization [facility] Address [address] [place] [address] Care Team Providers Care Cask Maker Name Role Phone Unknown, Provider Primary Care Provider [phone] Encounter Details Date Type Department Care Team (Late st Contact Info) Description 07/27/2022 Lab Requisition [facility] Pathology & Laboratory Medicine - [facility] [address] [place] [address] Outr Resulting Lab, Provider Social History Tobacco [...] Procedure Name Priority Date/Time Associated Diagnosis Comments LYME AB Routine 07/27/2022 10:39 EDT documented in this encounter Results * LYME AB (07/27/2022 10:39 EDT) Lyme Ab Negative Negative 07/28/2022 10:37 EDT [facility] Blood VENOUS BLOOD / Unknown 07/27/2022 10:39 EDT 07/27/2022 16:45 EDT Provider Outr Resulting Lab IMMUNOLOGY A ND SEROLOGY ORDERABLES [facility] [address] [place] [address] documented in this encounter Visit Diagnoses Not on filedocumented in this encounter Care Teams Cask Maker Relationship Specialty Start Date End Date Unknown, ProviderMD PCP - General 01/28/10 documented as of this encounter
--- OUTSIDE RECORDS SUMMARY | 2023-09-20 14:41 | XMS_ITS | Encounter Summary ---
Author Organization [facility] Address [address] [place] [address] Care Team Providers Care Tax Accounting Manager Name Role Phone Unavailable Primary Care Provider Unavailabl e Encounter Details Date Type Department Care Team (Late st Contact Info) Description 01/23/2010 Results Only [facility] - [facility] [address] [place], [place] [id number] Kylee Vaca MD [address] [place] [address] Social History Tobacco Use Types Packs/Day Years Used Date Smoking Tobacco: Never Assessed Sex and Gender Information Value Date Recorded Sex Assigned at Not on file Gender Identity Not on file Sexual Orientation Not on file documented as of this encounter Plan of Treatment Not on file documented as of this encounter Procedures Procedure Name Priority Date/Time Associated Diagnosis Comments SURGICAL PATHOLOGY Routine 01/23/2010 0:00 EST documented in this encounter Results * SURGICAL PATHOLOGY (01/23/2010 0:00 EST) Pathology Report: SURGICAL PATHOLOGY REPORT ? Reports generated via electronic interface contain original data; ? however they are lacking the format of the original report. ? Caution should be taken when reading/interpreti ng unformatted reports. ? Name: ? ROHAN, LOIDA ? Accession #: ? [id number] ? : ? 1970 (Age: 39) ??F ? Collect Date: ? 01/23/2010 ? Location: ? [facility] ? Receive Date: ? 01/24/2010 ? Provider: KYLEE VACA MD ? Copy to: DARWIN LEMON WATCH REPAIR TECHNICIAN ? Final Pathologic Diagnosis: ? Skin of cheek, right, excisional biopsy: ? 1. ?Melanocytic nevus, intradermal type. See comment. ? - Margins of excision negative. ? Comment: ? Overall, the features of those of an intradermal melanocytic nevus. Within the excision, is a focus consistent with a ruptured follicle. ? Document reviewed and electronically signed by: ? ISHA A DINORA MD ? Report ??Date: 01/27/2010 16:00 ? By the signature above, the attending physician certifies that he/she has ? personally conducted a gross and/or microscopic examination of the described ? specimens and rendered or confirmed the above diagnosis. ? Specimen(s) Received: ? Excisional biopsy skin lesion R cheek ? Clinical History: ? Not listed ? Gross Description: ? Received in formalin labelled Rohan, Loida and excisional biopsy skin lesion R cheek is an elliptical excision of skin measuring 1.5 x 0.8 cm ?? and excised to a depth of 0.5 cm. ??On the surface of the specimen, is a firm, ?? verrucous, fleshy nodule measuring 1.1 x 0.8 x 0.7 cm. ??No orientation is ? provided. ??The resection margins are black inked. ??The specimen is serially ? sectioned and submitted as follows: ? BLOCK RHODES ? A1 ?Tips ? A2, A3 ?Central sections ? (Dr. Smalls)/ljn ? End of Report ? [facility] 01/23/2010 01/24/2010 16: 20 EST Kylee Vaca MD PATHOLOGY ORDERABLES [facility] [address] [place] [address] documented in this encounter Visit Diagnoses Not on filedocumented in this encounter
--- OUTSIDE RECORDS SUMMARY | 2023-09-20 14:41 | XMS_ITS | Continuity of Care Document ---
Author Organization [facility] Address [address] [place] [id number] Care Team Providers Care Financial Services Assistant Name Role Phone VALERIA FORRESTER RPA Primary Care Physician Encounter LTTL_[place] FIN NBR [id number] Date(s): 05/10/23 - 05/10/[address] [address] Encounter Diagnosis Unspecified diastolic (congestive) heart failure(Final) - Discharge Disposition: Home or Self Care Attending Physician: ZOHREH DANIELS MD Admitting Physician: ZOHREH DANIELS MD Referring Physician: ZOHREH DANIELS MD Allergies, Adverse Reactions, Alerts Substance Reaction Severity Status codeine Unknown Unknown Active ibuprofen Unknown Unknown Active acetaminophen Unknown Unknown Active clobetasol topical Unknown Unknown Active Seasonal 1 Unknown Unknown Active 1ENVIRONMENTAL Assessment and Plan Diagnostic Tests Pending * PE+Interp(Rfx MASOOD),S LC 05/10/23 * Antinuclear Antibodies, IFA LC 05/10/23 * Free K+L Lt Chains,Qn,S LC 05/10/23 Future Scheduled Tests Radiology* CT Angio Heart/Coronary Arteries 07/30/22 Results Laboratory List Name Date Ferritin 05/10/23 Iron Panel 05/10/23 Lyme Disease (Borrelia Burgdorferi Abs) 05/10/23 Most recent to oldest [Reference Range]: 1 Iron Sat [20-55 %] 32 % (05/10/23 3:48 PM) Transferrin [203-362 mg/dL] 246 mg/dL (05/10/23 3:48 PM) Ferritin Level [11.0-307.0 ng/mL] 67.2 n g/mL (05/10/23 3:48 PM) TIBC 344 *NA* (05/10/23 3:48 PM) Iron [50-212 mcg/dL] 111 mcg/dL (05/10/23 3:48 PM) Lyme IgG [Negative] Negative 1 (05/10/23 3:48 PM) Lyme IgM [Negative] Negative 2 (05/10/23 3:48 PM) 1Interpretive Data: A negative result in the VIDAS Lyme IgG II assay or the VIDAS Lyme IgM II assay does not rule out the possibility of B. Burgdorferi infection in a patient. Patients in early stages of infection who have undergone antibiotic therapy may not produce measurable antibodies. If clinical history and/or syptoms are suggestive of Lyme Disease, a second specimen should be collected in 4-6 weeks. Lyme Western Blot testing reflexed. Results to follow. POSITIVE RESULTS ARE REPORTED TO THE [facility]. 2Interpretive Data: A negative result in the VIDAS Lyme IgG II assay or the VIDAS Lyme IgM II assay does not rule out the possibility of B. Burgdorferi infection in a patient. Patients in early stages of infection who have undergone antibiotic therapy may not produce measurable antibodies. If clinical history and/or syptoms are suggestive of Lyme Disease, a second specimen should be collected in 4-6 weeks. Lyme Western Blot testing reflexed. Results to follow. POSITIVE RESULTS ARE REPORTED TO THE [facility]. Patient Care team information Care Team Personnel Name: VALERIA FORRESTER RPA Position: No Access Member Role: Primary Care Physician Address: Address: [address] [place] [id number] [place] [address] Care Team Related Persons Name: MICAELA MADRIGAL
--- OUTSIDE RECORDS SUMMARY | 2023-09-20 14:41 | XMS_ITS | Encounter Summary ---
Author Organization [facility] [place] [address] Care Team Providers Care Aerial Lineman Name Role Phone Dustin Nino MD Primary Care Provider [phone] Encounter Details Date Type Department Care Team (Late st Contact Info) Description 06/19/2010 [place] [address] Lashonda York MD [facility] DR ALLERGY [place] [address] Social History Tobacco Use Types Packs/Day Years [...] AM EDT Tech [place] [phone] Jose Cook 10/08/2023 9:30 AM EDT Office [place] [phone] MD [facility] [place] [address] 10/21/2023 10:30 AM EDT Appointment [place] [address] Mary Reyes [facility] [place] [address] 10/21/2023 11:30 AM EDT Appointment [place] [address] Mary Reyes [facility] [place] [address] 10/21/2023 12:30 PM EDT Appointment [place] [address] Mary Reyes [facility] [place] [address] 10/21/2023 1:30 PM EDT Appointment [place] [address] Mary Reyes [facility] [place] [address] 10/21/2023 2:30 PM EDT Appointment [place] [address] Mary Reyes [facility] [place] [address] 10/26/2023 4:00 PM EDT Office Visit Cardiology at [address] [phone] Jaspreet Kinsey MD [facility] [place] [address] 10/28/2023 9:00 AM EDT Office [place] [address] 10/29/2023 10:00 AM EDT Clinical [place] [address] 10/29/2023 10:15 AM EDT Procedure [place] [address] 11/01/2023 5:00 PM EDT Office [place] [address] Selene Browning, PhD [facility] [place] [address] 11/22/2023 4:40 PM EDT Office Visit Cardiology at [address] [address] Porsha Mcdaniels MD [facility] [place] [address] 12/13/2023 10:00 AM EDT Clinical [place] [address] Lucero Romero, ALVA [facility] [place] [address] documented as of this encounter Visit Diagnoses Not on filedocumented in this encounter Care Teams Aerial Lineman Relationship Specialty Start Date End Date Dustin Nino MD [facility] [address] [place] [address] PCP - General 06/11/10 08/27/19 documented as of this encounter
--- OUTSIDE RECORDS SUMMARY | 2023-09-20 14:41 | XMS_ITS | Encounter Summary ---
[place] [address] Care Team Providers Care Oracle Database Manager Name Role Phone Tim Rogers DNP Primary Care Provider Encounter Details Date Type Department Care Team (Late st Contact Info) Description 08/28/2019 12:05 AM EDT Ancillary Procedure [place] [phone] Veronica Bello, ORE CRUSHER [address] [place] [address] Social History Tobacco Use Types Packs/Day Years [...] AM EDT Tech [place] [phone] Jose Cook 10/08/2023 9:30 AM EDT Office [place] [phone] MD [facility] DR VASCULAR SURGERY [place], [place] [phone] 10/21/2023 10:30 AM EDT Appointment Nuclear Medicine at [address] Mary Reyes [facility] [place] [address] 10/21/2023 11:30 AM EDT Appointment Nuclear Medicine at [address] Mary Reyes [facility] [place] [place] [address] 10/21/2023 12:30 PM EDT Appointment Nuclear Medicine at [place] [phone] Mary Reyes [facility] [place] [address] 10/21/2023 1:30 PM EDT Appointment Nuclear Medicine at [place] [phone] Mary Reyes [facility] [place] [address] 10/21/2023 2:30 PM EDT Appointment [place] [phone] Mary Reyes [facility] [place] [place] [address] 10/26/2023 4:00 PM EDT Office Visit Cardiology at [address] [phone] Jaspreet Kinsey MD [facility] [place] [address] 10/28/2023 9:00 AM EDT Office [place] [address] 10/29/2023 10:00 AM EDT Clinical [place] [address] 10/29/2023 10:15 AM EDT Procedure [place] [address] 11/01/2023 5:00 PM EDT Office [place] [phone] Selene Browning, PhD [facility] [place] [address] 11/22/2023 4:40 PM EDT Office Visit Cardiology at [address] [address] Porsha Mcdaniels MD [facility] [place] [address] 12/13/2023 10:00 AM EDT Clinical [place] [address] [facility] [place] [place] [address] documented as of this encounter Procedures Procedure Name Priority Date/Time Associated Diagnosis Comments FILM LIBRARY STORAGE ONLY CT CHEST Routine 08/28/2019 12:05 AM EDT documented in this encounter Results * Film Library- Storage Only CT Chest (08/28/2019 12:05 AM EDT) Narrative [facility] - 08/29/2019 1:46 PM EDT This exam is auto-finalizing. It's purpose is for storage only. Veronica Willis Ace ORE CRUSHER IMG FILM LIBRARY ORD ERABLES [place], [place] documented in this encounter Visit Diagnoses Not on filedocumented in this encounter Care Teams Oracle Database Manager Relationship Specialty Start Date End Date Tim Rogers DNP PCP - General Family Medicine 08/28/19 06/08/21 documented as of this encounter
--- OUTSIDE RECORDS SUMMARY | 2023-09-20 14:41 | XMS_ITS | Encounter Summary ---
Author Organization [facility] [place] [address] Care Team Providers Care Tip Bander Name Role Phone Tim Rogers DNP Primary Care Provider [phone] Encounter Details Date Type Department Care Team (Late st Contact Info) Description 08/28/2019 [place] [address] Kia Angelo MD [facility] [address] CR[place] [address] Social History Tobacco Use Types Packs/Day Years Used Date Smoking Tobacco: Never Assessed Sex and Gender Information Value Date Recorded Sex Assigned at Not on file Gender Identity Not on file Sexual Orientation Not on file documented as of this encounter Miscellaneous Notes * Telephone Encounter - Kia Angelo MD - 08/28/2019 9:05 PM EDT Telephone Triage Note Initial Contact Date: 08/28/2019 Initial contact time: ~2054 Referring Provider: Dr. Pooja Iyer, Dr. Weathers Patient Location: [facility] ED Reason for call: transfer request for NSTEMI Presenting Symptoms per OSH: 49yoF, generally healthy at baseline but with a strong family history of ASCVD in her father, presents with a 2 week history of exertional dyspnea, chest pressure and cough, found to have a mildly positive troponin. Patient was reportedly in her usual state of health until about two weeks ago when she began noticing RAVI accompanied by chest pressure but no pain per se. This has not been appreciably escalating. She also noted a dry cough and worsening seasonal allergies and thought this was all related and presented to the ED with these complaints. Her EKG was abnormal with diffuse STTW abnormalities but unchanged from prior EKG in 2007. Per the referring provider she does not appear to have had any priorcardiac work-up of these EKG findings. First troponin is positive at 0.25 (ULN 0.06). Vitals are stable and patient is asymptomatic at rest. Some labs still pending but DDimer is significantly positive at 1000 and provider does plan to proceed with CT-PE protocol. COVID19 screening questions positive for dyspnea and cough but no known exposures or travel and no fever. They have not sent COVID testing there. Pertinent Diagnostic Findings: Vitals: T 37.1C BP 110/63 HR 76 SaO2 100% on RA EKG : SR with diffuse ST depressions and TW abnormalities most prominent in III, aVF, V3-V6 on current EKG, but not significantly different from EKG in 2007 Troponin : 0.25 (ULN 0.06) Cr 1.0 OSH Interventions: ASA 325mg Assessment/Plan: 49yoF with risk factors of early family history of ASCVD presenting with 2 weeks of RAVI/chest pressure/cough with abnormal EKG and mildly positive troponin. Concern for possible ischemic process versus non-ischemic cardiomyopathy versus PE. Pending further evaluation advised treatment with therapeutic heparin; if CT-PE negative PLavix 300mg also reasonable. Requested COVID19 testing as well. We do not have beds available this evening but are listing for tomorrow. Provider believes he can keep and manage patient in the [facility] ED overnight pending bed availability (they do not have inpatient admission beds). Advised also that while waiting for a bed to open, obtaining a TTE if possible tomorrow morning would also be helpful. Recommended trending troponins and contacting us with the results oflabs, CT-PE and any substantial change in the patient's condition. documented in this encounter Plan of Treatment Upcoming Encounters Date Type Department Care Team (Late st Contact Info) Description 10/08/2023 8:30 AM EDT Tech Visit Vascular Lab at [place] [phone] Jose Cook 10/08/2023 9:30 AM EDT Office Visit Vascular Surgery at [place] [phone] MD [facility] [place] [address] 10/21/2023 10:30 AM EDT Appointment Nuclear Medicine at [address] Mary Reyes [facility] [place] [address] 10/21/2023 11:30 AM EDT Appointment Nuclear Medicine at [place] [phone] Mary Reyes [facility] [place] [address] 10/21/2023 12:30 PM EDT Appointment [place] [phone] Mary Reyes [facility] [place] [address] 10/21/2023 1:30 PM EDT Appointment [place] [phone] Mary Reyes [facility] [place] [address] 10/21/2023 2:30 PM EDT Appointment [place] [phone] Mary Reyes APRN [facility] [place] [address] 10/26/2023 4:00 PM EDT Office Visit Cardiology at [address] [address] Jaspreet Kinsey [place] [address] 10/28/2023 9:00 AM EDT Office [place] [address] 10/29/2023 10:00 AM EDT Clinical Support [place] [address] 10/29/2023 10:15 AM EDT Procedure [place] [address] 11/01/2023 5:00 PM EDT Office Visit [place] [phone] Selene Browning, PhD [facility] [place] [address] 11/22/2023 4:40 PM EDT Office Visit Cardiology at [address] [phone] Porsha Mcdaniels MD [facility] [place] [address] 12/13/2023 10:00 AM EDT Clinical Support [place] [phone] [facility] [place] [address] documented as of this encounter Visit Diagnoses Not on filedocumented in this encounter Care Teams Tip Bander Relationship Specialty Start Date End Date Tim Rogers DNP PCP - General Family Medicine 08/28/19 06/08/21 documented as of this encounter
--- OUTSIDE RECORDS SUMMARY | 2023-09-20 14:41 | XMS_ITS | Clinical Summary ---
Author Organization [facility] Address [address] [place] [address] Care Team Providers Care Assistant Farm Operations Manager Name Role Phone Unknown, Provider Primary Care Provider [phone] Social History Tobacco Use Types Packs/Day Years Used Date Smoking Tobacco: Never Assessed Sex and Gender Information Value Date Recorded Sex Assigned at Not on file Gender Identity Not on file Sexual Orientation Not on file Plan of Treatment Health Maintenance Due Date Last Done Comments Hepatitis B Vaccine (1 of 3 - 19+ 3-dose series) 03/08 COVID-19 Vaccine ( season) 2022 Hepatitis C Screen Completed 05/17/2020 Procedures Procedure Name Priority Date/Time Associated Diagnosis Comments HEPATITIS C AB W REFLEX TO HCV RNA BY PCR Routine 05/17/2020 14:00 EST from Last 3 Months or Most Recently Relevant to Health Maintenance Results * HEPATITIS C AB W REFLEX TO HCV RNA BY PCR (05/17/2020 14:00 EST) Hep C Antibody Negative Negative 05/20/2020 11:15 EDT [facility] Blood VENOUS BLOOD / Unknown 05/17/2020 14:00 EST 05/19/2020 16:37 EDT Provider Outr Resulting Lab CHEMISTRY & BLOOD GAS ORDERABLES [facility] [address] [place] [address] from Last 3 Months or Most Recently Relevant to Health Maintenance Care Teams Assistant Farm Operations Manager Relationship Specialty Start Date End Date Unknown, Provider, PCP - General 01/28/10
--- OUTSIDE RECORDS SUMMARY | 2023-09-20 14:41 | XMS_ITS | Encounter Summary ---
Author Organization [facility] Address [address] [place] [address] Care Team Providers Care Fuels Sales Representative Name Role Phone Unknown, Provider Primary Care Provider Encounter Details Date Type Department Care Team (Late st Contact Info) Description 07/29/2022 Lab Requisition [facility] Pathology & Laboratory Medicine - [address] [address] Outr Resulting Lab, Provider Social History Tobacco [...] Procedure Name Priority Date/Time Associated Diagnosis Comments PROTEIN S ACTIVITY Routine 07/29/2022 9:25 EDT PROTEIN C ACTIVITY Routine 07/29/2022 9:25 EDT documented in this encounter Results * (ABNORMAL) PROTEIN S ACTIVITY (07/29/2022 9:25 EDT) Protein S Activity >150(H) 64 - 147 % 08/05/2022 11:55 EDT [facility] Comment: a.Acquired Protein S deficiencies are associated with vitamin K antagonists, acute thrombotic events, , vitamin K deficiency, L-aspariginase treatment and inflammatory syndrome. Deficiencies may or may not be present in liver disease and DIC. b.Results may be affected by plasma heparin levels greater than 1.6 U/mL for UFH or greater than 1.8 U/mL for LMWH. c.Results may be overestimated in the presence of direct Xa inhibitors (rivaroxaban, apixaban, edoxaban) and direct thrombin inhibitors (dabigatran, argatroban, bivalirudin). d.Acute illness and/or thrombosis may influence test results in an unpredictable manner, therefore results should be interpreted with caution in this setting. e.Age and hormonal status may affect the normal range for females. Blood VENOUS BLOOD / Unknown 07/29/2022 9:25 EDT 07/29/2022 18:04 EDT Provider Outr Resulting Lab HEMATOLOGY & PF4 ORDERABLES Performing Organization Address [facility] Co de Phone Number [facility] [address] [place] [address] * PROTEIN C ACTIVITY (07/29/2022 9:25 EDT) Protein C Clot 132 71 - 199 % 08/05/2022 11:55 EDT [facility] Comment: a. Acquired Protein C deficiencies are associated with vitamin K antagonists, acute thrombotic events, vitamin K deficiency, liver disease and DIC. b. Results may be affected by plasma heparin levels greater than 1.5 U/mL for UFH and 0.8 for LMWH. c. Results may be overestimated in the presence of direct Xa inhibitors (rivaroxaban, apixaban, edoxaban) and direct thrombin inhibitors (dabigatran, argatroban, bivalirudin). d. Acute illness and/or thrombosis may influence test results in an unpredictable manner; therefore, results should be interpreted with caution in this setting. Blood VENOUS BLOOD / Unknown 07/29/2022 9:25 EDT 07/29/2022 18:04 EDT Provider Outr Resulting Lab HEMATOLOGY & PF4 ORDERABLES Performing Organization Address City/[facility]/ZIP Co de Phone Number [facility] [address] [place] [phone] documented in this encounter Visit Diagnoses Not on filedocumented in this encounter Care Teams Fuels Sales Representative Relationship Specialty Start Date End Date Unknown, Provider, PCP - General 01/28/10 documented as of this encounter
--- OUTSIDE RECORDS SUMMARY | 2023-09-20 14:41 | XMS_ITS | Encounter Summary ---
Author Organization [facility] [place] [address] Care Team Providers Care Ambulance Officer Name Role Phone Tim Rogers DNP Primary Care Provider Encounter Details Date Type Department Care Team (Late st Contact Info) Description 08/28/2019 External [place] [phone] Social History Tobacco Use Types Packs/Day Years [...] AM EDT Tech [place] [phone] Jose Cook 10/08/2023 9:30 AM EDT Office [place] [phone] MD [facility] [place] [address] 10/21/2023 10:30 AM EDT Appointment [place] [address] Mary Reyes [facility] [place] [address] 10/21/2023 11:30 AM EDT Appointment Nuclear Medicine at [place] [phone] Mary Reyes [facility] [place] [address] 10/21/2023 12:30 PM EDT Appointment Nuclear Medicine at [place] [phone] Mary Reyes [facility] [place] [address] 10/21/2023 1:30 PM EDT Appointment Nuclear Medicine at [place] [phone] Mary Reyes [facility] [place] [address] 10/21/2023 2:30 PM EDT Appointment [place] [address] Mray Reyes [facility] [place] [address] 10/26/2023 4:00 PM EDT Office Visit Cardiology at [address] [phone] Jaspreet Kinsey MD [facility] [place] [address] 10/28/2023 9:00 AM EDT Office [place] [address] 10/29/2023 10:00 AM EDT Clinical [place] [address] 10/29/2023 10:15 AM EDT Procedure [place] [address] 11/01/2023 5:00 PM EDT Office Visit Gastroenterology at [place] [phone] Selene Browning, PhD [facility] [place] [address] 11/22/2023 4:40 PM EDT Office Visit Cardiology at [address] [phone] Porsha Mcdaniels MD [facility] [place] [address] 12/13/2023 10:00 AM EDT Clinical [place] [address] Lucero Romero, ALVA [facility] [place] [address] documented as of this encounter Procedures Procedure Name Priority Date/Time Associated Diagnosis Comments ECG SCAN Routine 08/28/2019 documented in this encounter Results * Scan Doc: ECG (08/28/2019) Historical Provider MD [facility] MGR SCAN EX T ORDR/RSLT documented in this encounter Visit Diagnoses Not on filedocumented in this encounter Care Teams Ambulance Officer Relationship Specialty Start Date End Date Tim Rogers DNP PCP - General Family Medicine 08/28/19 06/08/21 documented as of this encounter
--- OUTSIDE RECORDS SUMMARY | 2023-09-20 14:41 | XMS_ITS | Encounter Summary ---
Author Organization Formerly [facility] [place] [address] Care Team Providers Care Seismometer Operator Name Role Phone Dustin Nino MD Primary Care Provider [phone] Encounter Details Date Type Department Care Team (Late st Contact Info) Description 06/17/2010 [place] [address] Lashonda York MD [facility] DR [place] [address] Social History Tobacco Use Types Packs/Day Years [...] AM EDT Tech [place] [phone] Jose Cook 10/08/2023 9:30 AM EDT Office [place] [phone] MD [facility] [place] [address] 10/21/2023 10:30 AM EDT Appointment [place] [address] Mary Reyes [facility] [place] [address] 10/21/2023 11:30 AM EDT Appointment [place] [address] Mary Reyes [facility] [place] [address] 10/21/2023 12:30 PM EDT Appointment [place] [address] Mary Reyes [facility] [place] [address] 10/21/2023 1:30 PM EDT Appointment [place] [address] Mary Reyes [facility] [place] [address] 10/21/2023 2:30 PM EDT Appointment [place] [address] Mary Reyes [facility] [place] [address] 10/26/2023 4:00 PM EDT Office Visit Cardiology at [address] [address] Jaspreet Kinsey MD [facility] [place] [address] 10/28/2023 9:00 AM EDT Office Visit [place] [address] 10/29/2023 10:00 AM EDT Clinical Support [place] [address] 10/29/2023 10:15 AM EDT Procedure visit [place] [address] 11/01/2023 5:00 PM EDT Office [place] [address] Selene Browning, PhD [facility] [place] [address] 11/22/2023 4:40 PM EDT Office Visit Cardiology at [address] [address] Porsha Mcdaniels MD [facility] [place] [address] 12/13/2023 10:00 AM EDT Clinical [place] [address] Lucero Romero, AL[place] [facility] [place] [address] documented as of this encounter Visit Diagnoses Not on filedocumented in this encounter Care Teams Seismometer Operator Relationship Specialty Start Date End Date Dustin Nino MD [facility] [address] [place] [address] PCP - General 06/11/10 08/27/19 documented as of this encounter
[2023-09-20] MEDS: Aspirin 81 MG CHEW 324 MG CH (14:42)
--- NOTE | 2023-09-20 14:45 | DI.CT_ITS ---
Exam(s) CT HEAD WO EXAM: CT HEAD WO CLINICAL HISTORY: LEFT SIDED WEAKNESS, SINCE SAT. TECHNIQUE: Imaging Protocol: Axial computed tomography images with coronal and sagittal reformatted images were created and reviewed COMPARISON: CT CT BRAIN NECK CTA from 07/29/2022 FINDINGS: Ventricles and Extra axial spaces: Normal in size and morphology for the patient's age. Hemorrhage: None. Cerebral parenchyma: No evidence of acute infarct or mass. Midline shift: None. Brainstem/Cerebellum: Normal. Calvarium: Normal. Visualized Paranasal sinuses:Clear. Mastoids: Clear. Soft Tissues: Unremarkable. ORBITS: Unremarkable. PITUITARY: Not enlarged. IMPRESSION: No acute intracranial process. RADIATION DOSE DELIVERED: Total DLP DATA REPOSITORY: All CT scans at this facility are submitted to the National Radiology Data Registry (NRDR) Dose Index Registry (DIR) with the [employer] (A[employer]). RADIATION OPTIMIZATION: All CT scans at this facility use at least one of these dose optimization te chniques: automated exposure control; mA and/or kV adjustment per patient size (includes targeted exa ms where dose is matched to clinical indication); or iterative reconstruction.
[2023-09-20 14:51] LABS: Abs Immature Grans 0.04 10^3/uL (0.0-0.06); Absolute Basophil Count 0.03 10^3/uL (0.0-0.2); Absolute Eosinophil Count 0.18 10^3/uL (0.0-0.7); Absolute Lymphocyte Count 1.87 10^3/uL (1.2-3.4); Absolute Monocyte Count 1.08 10^3/uL (0.1-0.8); Absolute Neutrophil Count 5.65 10^3/uL (1.2-6.7); Basophils % 0.3 %; HCT 45.5 % (36.0-46.0); Immature Grans % 0.5 %; Lymphocytes % 21.1 %; MCH 31.7 pg (27.0-33.0); MCHC 35.2 % (32.0-36.0); MCV 90 fL (80-95); MPV 10.5 fL (8.0-11.0); Monocytes % 12.2 %; Neutrophils % 63.9 %; Platelet Count 333 10^3/uL (130-400); RBC 5.04 10^6/uL (3.93-5.22); RDW 12.5 % (11.7-14.6); RDW-SD 41.1 fL; WBC 8.85 10^3/uL (4.4-10.8)
[2023-09-20 15:04] LABS: PTT Activated 27.6 sec (23.6-32.8); Prothrombin Time 10.2 sec (9.1-11.1)
[2023-09-20 15:22] LABS: ALT 33 U/L (14-59); AST 29 U/L (15-37); Albumin 4.7 g/dL (3.4-5.0); Alkaline Phosphatase 77 U/L (46-116); Anion Gap 9.4 mmol/L (3-11); BUN 48 mg/dL (7-18); Bilirubin, Total 0.52 mg/dL (0.2-1.0); CO2 35.6 mmol/L (21.0-32.0); CREATININE 2.4 mg/dL (0.55-1.02); Calcium 9.5 mg/dL (8.5-10.1); Chloride 85 mmol/L (98-107); Estimated GFR 23.41 (mL/min/1.73m2); Glucose 108 mg/dL (74-106); Magnesium 3.2 mg/dL (1.8-2.4); Sodium 130 mmol/L (136-145); Total Protein 9.3 g/dL (6.4-8.2)
[2023-09-20 15:25] LABS: Potassium 2.8 mmol/L (3.5-5.1)
[2023-09-20 15:26] LABS: Troponin I 655 ng/L (< or =60)
--- NOTE | 2023-09-20 15:30 | DI.RAD_ITS ---
Exam(s) XR PORTABLE CHEST AP EXAM: XR PORTABLE CHEST AP CLINICAL HISTORY: sob TECHNIQUE: 2D digital imaging was performed. COMPARISON: CT CT CHEST PE CTA from 08/28/2023 FINDINGS: Exam limited by multiple leads overlying the chest. LUNGS: Clear. No pleural abnormality seen. HEART: Normal size. AORTA: Normal diameter. BONES: Unremarkable for age. Soft tissues: Unremarkable. IMPRESSION: No acute findings. DATA REPOSITORY: RADIATION DOSE DELIVERED:
[2023-09-20] MEDS: Normal Saline 250 ML IV ×2 (15:51→17:09)
[2023-09-20] MEDS: POTASSIUM CHLORIDE 10 MEQ/100 ML BAG 100 MEQ IVINF ×4 (15:52→21:56)
[2023-09-20 15:57] LABS: NT-proBNP 4763 pg/mL (<300)
--- NOTE | 2023-09-20 16:56 | ED.GENADUL_ITS ---
Discharge Plan Discharge Details Chief Complaint: Chest Pain Clinical Impression: Acute dehydration, CATIE (acute kidney injury), Hypokalemia, Dizziness Primary Care Provider: Polo Pearce ED Provider: Jasen Montes Home Meds and New Rx's Prescriptions: No Action ropinirole 1 mg tablet 1 mg PO BID Rx Instructions: @ 1600 and 2100 Nurtec ODT 75 mg tablet,disintegrating 75 mg PO ONCE PRN (Reason: migraine headache) Qty: 10 3RF Rx Instructions: As a single dose. No more than one dose in 24 hours. metoprolol tartrate 25 mg tablet 25 mg PO BID potassium chloride 20 mEq tablet,ER particles/crystals 20 meq PO BID atorvastatin 80 mg tablet 40 mg PO QPM fluticasone propionate [Flonase Allergy Relief] 9.9 ML spray,suspension 2 spray NS DAILY duloxetine [Cymbalta] 60 mg capsule,delayed release(DR/EC) 60 mg PO DAILY Qty: 30 2RF albuterol sulfate 90 mcg/actuation HFA aerosol inhaler 2 puff inhalation Q4H PRN loratadine [Allergy Relief (loratadine)] 10 mg tablet 10 mg PO DAILY PRN nitroglycerin 0.4 mg tablet, sublingual 0.4 mg sublingual Q5M PRN Rx Instructions: do not exceed 3 doses per episode Aimovig Autoinjector 140 mg/mL auto-injector 140 mg subcut QMONTH Qty: 1 11RF clobetasol 0.05 % ointment 1 applic topical DIRECTED omeprazole 20 mg capsule,delayed release(DR/EC) 20 mg PO DAILY gabapentin 600 mg tablet 600 mg PO QHS Qty: 90 3RF topiramate [Topamax] 100 mg tablet 100 mg PO QHS Qty: 90 3RF apixaban 5 mg tablet 5 mg PO BID Jardiance 10 mg tablet 10 mg PO DAILY ranolazine 1,000 mg tablet extended release 12 hr 1,000 mg PO BID spironolactone 25 mg tablet 25 mg PO DAILY torsemide 40 mg tablet 40 mg PO DAILY montelukast 10 mg tablet 10 mg PO DAILY PRN melatonin 10 mg capsule 10 mg PO HS PRN metolazone 2.5 mg tablet 2.5 mg PO DAILY HPI General Date/Time Provider Initiated Documentation: 09/20/23 14:34 . Limitations to Documentation: no limitations . Information obtained by: patient . HPI Narrative: 53 Y f WITH pmh of NSTEMI, CKD, CHF presents for evaluation of dizziness and left sided tingling. reports onset of symptoms on wednesday. states that her whole left side feels like pins and needles, even her tounge. no weakness or speech change. mild headache. states that she feels overall very weak. says that she can tell when her heart rate gets very low and this is uncomfortable, otherwise denies chest pain. she says she does want to scratch her heart Related Data Home Medications ?Medication ?Instructions ?Recorded ?Confirmed fluticasone propionate 50 2 spray NS DAILY 12/23/16 09/20/23 mcg/actuation nasal spray,suspension (Flonase Allergy Relief) ropinirole 1 mg tablet 1 mg PO BID 06/12/20 09/20/23 duloxetine 60 mg capsule,delayed 60 mg PO DAILY #30 mg 08/19/20 09/20/23 release (Cymbalta) albuterol sulfate 90 mcg/actuation 2 puff inhalation Q4H PRN 05/30/21 09/20/23 aerosol inhaler loratadine 10 mg tablet (Allergy 10 mg PO DAILY PRN 05/30/21 09/20/23 Relief (loratadine)) nitroglycerin 0.4 mg sublingual 0.4 mg sublingual Q5M PRN 09/25/21 09/20/23 tablet erenumab-aooe 140 mg/mL 140 mg subcut QMONTH #1 mL 07/28/22 09/20/23 subcutaneous auto-injector (Aimovig Autoinjector) rimegepant 75 mg disintegrating 75 mg PO ONCE PRN migraine 08/25/22 09/20/23 tablet (Nurtec ODT) headache #10 tabs clobetasol 0.05 % topical ointment 1 applic topical DIRECTED 08/28/22 09/20/23 omeprazole 20 mg capsule,delayed 20 mg PO DAILY 08/28/22 09/20/23 release gabapentin 600 mg tablet 600 mg PO QHS #90 tabs 01/04/23 09/20/23 topiramate 100 mg tablet (Topamax) 100 mg PO QHS #90 tab-caps 01/18/23 09/20/23 melatonin 10 mg capsule 10 mg PO HS PRN 04/16/23 09/20/23 metolazone 2.5 mg tablet 2.5 mg PO DAILY 06/14/23 09/20/23 apixaban 5 mg tablet 5 mg PO BID 08/13/23 09/20/23 empagliflozin 10 mg tablet 10 mg PO DAILY 08/13/23 09/20/23 (Jardiance) ranolazine 1,000 mg 1,000 mg PO BID 08/13/23 09/20/23 tablet,extended release,12 hr spironolactone 25 mg tablet 25 mg PO DAILY 08/13/23 09/20/23 torsemide 40 mg tablet 40 mg PO DAILY 08/13/23 09/20/23 atorvastatin 80 mg tablet 40 mg PO QPM 09/16/23 09/20/23 metoprolol tartrate 25 mg tablet 25 mg PO BID 09/16/23 09/20/23 montelukast 10 mg tablet 10 mg PO DAILY PRN 09/16/23 09/20/23 potassium chloride 20 mEq 20 meq PO BID 09/16/23 09/20/23 tablet,extended release(part/cryst) Previous Rx's ?Medication ?Instructions ?Recorded duloxetine 60 mg capsule,delayed 60 mg PO DAILY #30 mg 08/19/20 release (Cymbalta) erenumab-aooe 140 mg/mL 140 mg subcut QMONTH #1 mL 07/28/22 subcutaneous auto-injector (Aimovig Autoinjector) rimegepant 75 mg disintegrating 75 mg PO ONCE PRN migraine 08/25/22 tablet (Nurtec ODT) headache #10 tabs gabapentin 600 mg tablet 600 mg PO QHS #90 tabs 01/04/23 topiramate 100 mg tablet (Topamax) 100 mg PO QHS #90 tab-caps 01/18/23 Allergies Allergy/AdvReac Type Severity Reaction Status Date / Time acetaminophen (From Tylenol) AdvReac Intermediate jittery Unverified 09/20/23 14:26 like too much caffeine clobetasol AdvReac Intermediate Skin Rash Verified 09/20/23 14:26 codeine AdvReac Mild Not able Verified 09/20/23 14:26 to sleep ibuprofen AdvReac migraines Unverified 09/20/23 14:26 environmental Allergy Mild sneezing/triggers Uncoded 09/20/23 14:26 her asthma General Stated Complaint: Chest Pain MIKAELA: 2 Exam Narrative Exam Narrative: Review of Systems: All systems reviewed & are unremarkable except as noted in HPI and below Well-developed, ill-appearing NCAT PERRL, normal conjunctiva , no nystagmus Bradycardic Unlabored respiratory effort clear bilaterally Nondistended abdomen nontender Extremities w/o deformity, no cyanosis, no edema No rashes or lesions. no focal neurologic deficits no facial asymmetry, voice and speech clear, subjective sensory discrepancy between left and right, but no focal deficit or decrease in strength Appropriate mood and affect Course Vital Signs Vital signs: Vital Signs Temperature 36.6 C 09/20/23 14:17 Pulse 47 L 09/20/23 14:17 Respiratory Rate 14 09/20/23 14:17 Blood Pressure 106/57 L 09/20/23 14:17 Pulse Oximetry 98 09/20/23 14:17 Temperature 36.6 C 09/20/23 14:17 Temperature Source Skin 09/20/23 14:17 Pulse 50 L 09/20/23 15:46 Pulse 50 L 09/20/23 15:50 Respiratory Rate 17 09/20/23 15:50 Respiratory Effort Normal, Non-Labored 09/20/23 14:44 Respiratory Depth Normal 09/20/23 14:44 Respiratory Pattern Normal 09/20/23 14:44 Blood Pressure 96/48 L 09/20/23 15:46 Blood Pressure Mean 63 09/20/23 15:46 Blood Pressure Position Sitting 09/20/23 14:17 Pulse Oximetry 96 09/20/23 16:25 Oxygen Delivery Method Nasal Cannula 09/20/23 16:25 Oxygen Flow Rate 2 09/20/23 16:25 Pain Level 4 09/20/23 14:17 Lab/Test Results Lab/Test Results: Laboratory Tests Range/Units 09/20/23 14:41 WBC (4.4-10.8) 10^3/uL 8.85 RBC (3.93-5.22) 10^6/uL 5.04 Hgb (11.2-15.7) g/dL 16.0 H Hct (36.0-46.0) % 45.5 MCV (80-95) fL 90 MCH (27.0-33.0) pg 31.7 MCHC (32.0-36.0) % 35.2 RDW (11.7-14.6) % 12.5 Plt Count (130-400) 10^3/uL 333 MPV (8.0-11.0) fL 10.5 Immature Gran % % 0.5 Neutrophils % % 63.9 Lymphocytes % % 21.1 Monocytes % % 12.2 Eosinophils % % 2.0 Basophils % % 0.3 Nucleated RBC % (0.0-0.3) % 0.0 Absolute Neutrophils (1.2-6.7) 10^3/uL 5.65 Absolute Lymphocytes (1.2-3.4) 10^3/uL 1.87 Absolute Monocytes (0.1-0.8) 10^3/uL 1.08 H Absolute Eosinophils (0.0-0.7) 10^3/uL 0.18 Absolute Basophils (0.0-0.2) 10^3/uL 0.03 PT (9.1-11.1) sec 10.2 INR (0.9-1.1) 1.0 APTT (23.6-32.8) sec 27.6 Sodium (136-145) mmol/L 130 L Potassium (3.5-5.1) mmol/L 2.8 L* Chloride (98-107) mmol/L 85 L Carbon Dioxide (21.0-32.0) mmol/L 35.6 H Anion Gap (3-11) mmol/L 9.4 BUN (7-18) mg/dL 48 H Creatinine (0.55-1.02) mg/dL 2.4 H Est GFR (CKD-EPI 2020) (mL/min/1.73m2) 23.41 Glucose (74-106) mg/dL 108 H Calcium (8.5-10.1) mg/dL 9.5 Magnesium (1.8-2.4) mg/dL 3.2 H Total Bilirubin (0.2-1.0) mg/dL 0.52 AST (15-37) U/L 29 ALT (14-59) U/L 33 Alkaline Phosphatase (46-116) U/L 77 Troponin I (< or =60) ng/L 655 H* NT-Pro-B Natriuret Pep (<300) pg/mL 4763 H Total Protein (6.4-8.2) g/dL 9.3 H Albumin (3.4-5.0) g/dL 4.7 Medical Decision Making Emergent evaluation of dizziness and numbness. Initial differential includes CVA, dehydration, symptomatic bradycardia, heart block. Patient was recently admitted at [facility] from August 27 to September 09 for heart failure and NSTEMI exacerbation. She reports the symptoms have been ongoing for the last several days, she does not have any hard neurologic findings on examination and would be outside of the window for stroke intervention. I will send for head CT to fully evaluate. She is noted to be bradycardic and blood pressure is low. I reviewed her discharge summary from [facility] and noted that she had several medication changes including starting metoprolol 25 twice daily. She has a history of pulmonary embolism and is on Eliquis for this. Head CT reviewed, there is no CVA noted. The patient's lab work was also reviewed. There is no elevation in white blood cell count. Her hemoglobin and hematocrit are slightly elevated at 16 and 45, concerning for hemoconcentration. Her potassium level is low at 2.8. She will be given IV replacement. Her BUN and creatinine are also elevated. 2.4 is her creatinine today. At [facility] her lab work on September 09 showed a hemoglobin and hematocrit of 13 and 39. Her creatinine at that time was 1.3. . She does not have signs of volume overload. Her chest x-ray does not reveal significant cardiomegaly or pulmonary edema. I believe that there is a component of overdiuresis contributing to her symptoms. Her troponin is elevated today. She does have a chronically elevated troponin, today it is 655. It does appear that this is slightly higher than it was on August 27. I cannot compared to the [facility] troponin as they are different scales. Her BNP is also noted to be elevated. I have reached out to [facility] cardiology for transfer and readmission to their service given her ongoing symptoms. Will defer that to them to start on heparin and ACS protocol. The patient will be resuscitated gently with IV fluids as she appears to be volume depleted. Her bradycardia is stable sinus bradycardia, her blood pressure is improving with initial IV fluids. Will continue to monitor Medical Records Medical records reviewed: Yes I reviewed the patient's medical records. Lab Data Lab results reviewed: Yes I reviewed the patient's lab results. Quality:[facility] Health Related Social Needs: No Data to Display PFSH All Active Problems (Updated 09/20/23 @ 17:09 by Jasen Montes MD) Dizziness (Acute) Hypokalemia (Acute) CATIE (acute kidney injury) (Acute) Acute dehydration (Acute) Acute otitis media of right ear with perforated tympanic membrane (Acute) Non-ST elevation DC (NSTEMI) (Acute) Chronic kidney disease, stage III (moderate) (Acute) Hypermagnesemia (Acute) Acute hypokalemia (Acute) Ground glass opacity present on imaging of lung (Acute) Elevated troponin (Acute) CATIE (acute kidney injury) (Acute) Restrictive lung disease secondary to obesity (Acute) Allergic asthma (Acute) intermittent, controlled Dyspnea (Acute) Diarrhea (Acute) Congestive heart failure (Chronic) Sick euthyroidism (Acute) Carpal tunnel syndrome (Acute) GERD (gastroesophageal reflux disease) (Chronic) Bilateral renal artery stenosis (Acute) Encounter for weight loss counseling (Acute) Pulmonary emboli (Chronic) Arthritis of carpometacarpal (CMC) joint of left thumb (Acute) Avulsion fracture of right talus (Acute 12/30/21) Bilateral carpal tunnel syndrome (Acute) Paresthesia of hand, bilateral (Acute) Abnormal chest CT (Acute) Pulmonary hypertension (Acute) Atypical chest pain (Acute) PSVT (paroxysmal supraventricular tachycardia) (Acute) Acute non-ST elevation myocardial infarction (NSTEMI) (Acute) Elevated troponin I level (Acute) Right upper quadrant abdominal pain (Acute) Chronic heart failure with preserved ejection fraction (Chronic) Restless legs syndrome (Acute) Rhinitis, nonallergic, chronic (Acute) Tendinitis (Acute) Chest pain (Acute) Migraine headache without aura (Acute) Lichen sclerosus (Acute) MARYLOU (obstructive sleep apnea) (Chronic) Migraine with aura and without status migrainosus, not intractable (Acute 02/24/16) Medical History Myocardial infarction 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 Mild intermittent asthma Atherosclerosis of renal artery Heart failure Supraventricular tachycardia Atrial fibrillation Superior mesenteric artery stenosis (~03/10/22) see CTA abdomen and pelivs: 80% narrowing of SMA origin Renal artery stenosis (~03/10/22) right renal artery stenosis per CTA abomen/pelvis Hx of supraventricular tachycardia Infiltrate of lower lobe of left lung present on imaging study Acute non-ST elevation myocardial infarction (NSTEMI) COVID-19 Left lateral epicondylitis Arthritis of carpometacarpal (CMC) joint of left thumb Left wrist pain CHI (closed head injury) Acute bronchitis Non-ST elevation DC (NSTEMI) Insomnia Asthma Migraine Overweight Endometriosis Depression Surgical History History of radiofrequency ablation (RFA) procedure for cardiac arrhythmia Hx of tubal ligation History of partial hysterectomy Family History Daughter Migraines Mother Hypertension Father Heart disease Social History Smoking/Tobacco Use Status: Never Smoking risk assessment performed?: Yes Alcohol Intake: never Drug use: Never Substance use type: does not use Housing: house Current gender identity: female Do you feel safe at home: Yes Do you feel safe in your relationship?: Yes Female Reproductive History Menstrual Menopause type: surgical History History 2 Para 2 Hx # Term Pregnancies Multiple births Hx # Pregnancies Ectopic pregnancies AB induced Hx Number of Living Children AB spontaneous
--- NOTE | 2023-09-20 17:36 | W.EDPROG ---
Date of service: 09/20/23 Time of Service: 17:36 Medical Decision Making Discussed patient with cardiology at [facility]. They concur with the concerns for overdiuresis. At this time her weight is 100.8 kg. Her discharge weight from [facility] was 101.2 kg, which supports that as well. They recommend gentle fluid administration and decreasing her diuretic at home to 40 mg once daily. we discussed the elevated troponin and given her history and prior cardiac workup, and EKG, he does not feel that this is concerning for ACS and does not recommend ACS the patient has a chronically elevated troponin. The patient is still feeling very dizzy with standing. Will continue fluid administration and discussed with the hospitalist. Will admit to the hospital. Medical Records Medical records reviewed: Yes I reviewed the patient's medical records. Quality:[facility] Health Related Social Needs: No Data to Display Discharge Plan Disposition Patient Disposition: Admit to [facility] Condition: Fair Discharge Details Chief Complaint: Chest Pain Clinical Impression: Acute dehydration, CATIE (acute kidney injury), Hypokalemia, Dizziness Primary Care Provider: Polo Pearce ED Provider: Jasen Montes Home Meds and New Rx's Prescriptions: No Action ropinirole 1 mg tablet 1 mg PO BID Rx Instructions: @ 1600 and 2100 Nurtec ODT 75 mg tablet,disintegrating 75 mg PO ONCE PRN (Reason: migraine headache) Qty: 10 3RF Rx Instructions: As a single dose. No more than one dose in 24 hours. metoprolol tartrate 25 mg tablet 25 mg PO BID potassium chloride 20 mEq tablet,ER particles/crystals 20 meq PO BID atorvastatin 80 mg tablet 40 mg PO QPM fluticasone propionate [Flonase Allergy Relief] 9.9 ML spray,suspension 2 spray NS DAILY duloxetine [Cymbalta] 60 mg capsule,delayed release(DR/EC) 60 mg PO DAILY Qty: 30 2RF albuterol sulfate 90 mcg/actuation HFA aerosol inhaler 2 puff inhalation Q4H PRN loratadine [Allergy Relief (loratadine)] 10 mg tablet 10 mg PO DAILY PRN nitroglycerin 0.4 mg tablet, sublingual 0.4 mg sublingual Q5M PRN Rx Instructions: do not exceed 3 doses per episode Aimovig Autoinjector 140 mg/mL auto-injector 140 mg subcut QMONTH Qty: 1 11RF clobetasol 0.05 % ointment 1 applic topical DIRECTED omeprazole 20 mg capsule,delayed release(DR/EC) 20 mg PO DAILY gabapentin 600 mg tablet 600 mg PO QHS Qty: 90 3RF topiramate [Topamax] 100 mg tablet 100 mg PO QHS Qty: 90 3RF apixaban 5 mg tablet 5 mg PO BID Jardiance 10 mg tablet 10 mg PO DAILY ranolazine 1,000 mg tablet extended release 12 hr 1,000 mg PO BID spironolactone 25 mg tablet 25 mg PO DAILY torsemide 40 mg tablet 40 mg PO DAILY montelukast 10 mg tablet 10 mg PO DAILY PRN melatonin 10 mg capsule 10 mg PO HS PRN metolazone 2.5 mg tablet 2.5 mg PO DAILY
--- NOTE | 2023-09-20 17:46 | W.PM.HP.N ---
Date of service: 09/20/23 Time of Service: 17:46 Assessment and Plan Assessment and plan (1) CATIE (acute kidney injury): Status: Acute Assessment and plan: - Presenting symptoms of left-sided tingling, [id number], mild headache and weakness thought to be secondary to dehydration, overdiuresis and CATIE -Baseline creatinine low 1's, up to 2.4 in the ED -Patient received total 500 mL normal saline fluid bolus in the emergency department -continue gentle fluid rehydration during hospitalization -decrease torsemide from 40 mg twice daily to 40 mg daily -follow-up a.m. BMP (2) Hypokalemia: Status: Acute Assessment and plan: Secondary to diuretic use -2.8 in the emergency department -Status post 10 mEq IV in the emergency department -order additional 30 mEq IV -Follow-up a.m. BMP (3) Elevated troponin: Status: Acute Assessment and plan: -Chronic, up to 655 upon arrival to the emergency department -Was elevated-during previous emergency room visit to [facility] on 08/28/2023 which prompted patient to go to [facility] for which she had cardiac catheterization that did not show any atherosclerotic disease as per [facility] consulting key worker -Will follow-up repeat troponin (4) Chronic heart failure with preserved ejection fraction: Status: Chronic Assessment and plan: - Last echocardiogram likely done at [facility] during previous hospitalization roughly 2 to 3 weeks ago, though one from 06/14/2023 done at [facility] shows normal EF -Will obtain results -Continue home statin, Lopressor, spironolactone, decreased dose of torsemide as noted above (5) MARYLOU (obstructive sleep apnea): Status: Chronic Assessment and plan: - Continue home CPAP (6) Restless legs syndrome: Status: Acute Assessment and plan: -Continue home ropinirole History of Present Illness History of Present Illness Chief Complaint: left sided tingling Narrative: 52-year-old female with a past medical history of NSTEMI, CKD, congestive heart failure, known chronically elevated troponin, and recent hospitalization and left heart catheterization at [facility] which did not show any stent or coronary artery disease who presented to the emergency department with complaints of left-sided tingling. Patient states that beginning Wednesday she noticed that she was having left-sided tingling that feels like [id number] including on her tongue, she denies any weakness, changes in speech. She also states that she notices that her heart rate gets rather low which causes her some discomfort but she does deny chest pain though had stated that she feels like she wants to scratch her heart. She denies any visual changes, nausea, vomiting, diarrhea, constipation, neck, arm, back pain. In the emergency department the patient was noted as having normal vital signs with slightly low blood pressure in the high 90s to low 100s systolic, heart rate in the low 40s which is apparently known and is patient's baseline, normal respiratory rate and pulse ox. CBC was unremarkable, CMP was notable for sodium 130, potassium of 2.8, BUN 48, and a creatinine of 2.4 which is elevated from patient's baseline in the low ones. Additionally, patient had troponin of 655 and a proBNP of 4763. EKG appeared to be unchanged. Patient was given treatment dose aspirin in the emergency department, and emergency room physician reached out to [facility] cardiology for further recommendations. They stated that they knew the patient had chronically elevated troponin and that she had recent catheterization that did not show any stentable coronary artery disease. They agreed with emergency room physicians assessment that the patient's presenting symptoms were likely secondary to overdiuresis and recommended that she have gentle fluid rehydration in addition to decreasing frequency and/or dose of her torsemide. At which time emergency room physician paged hospitalist for admission for patient with an CATIE, hypokalemia, chronically elevated troponin. Review of Systems All systems reviewed & are unremarkable except as noted in HPI and below PFSH All Active Problems (Updated 09/20/23 @ 17:09 by Jasen Mnotes MD) Dizziness (Acute) Hypokalemia (Acute) CATIE (acute kidney injury) (Acute) Acute dehydration (Acute) Acute otitis media of right ear with perforated tympanic membrane (Acute) Non-ST elevation OR (NSTEMI) (Acute) Chronic kidney disease, stage III (moderate) (Acute) Hypermagnesemia (Acute) Acute hypokalemia (Acute) Ground glass opacity present on imaging of lung (Acute) Elevated troponin (Acute) CATIE (acute kidney injury) (Acute) Restrictive lung disease secondary to obesity (Acute) Allergic asthma (Acute) intermittent, controlled Dyspnea (Acute) Diarrhea (Acute) Congestive heart failure (Chronic) Sick euthyroidism (Acute) Carpal tunnel syndrome (Acute) GERD (gastroesophageal reflux disease) (Chronic) Bilateral renal artery stenosis (Acute) Encounter for weight loss counseling (Acute) Pulmonary emboli (Chronic) Arthritis of carpometacarpal (CMC) joint of left thumb (Acute) Avulsion fracture of right talus (Acute 12/30/21) Bilateral carpal tunnel syndrome (Acute) Paresthesia of hand, bilateral (Acute) Abnormal chest CT (Acute) Pulmonary hypertension (Acute) Atypical chest pain (Acute) PSVT (paroxysmal supraventricular tachycardia) (Acute) Acute non-ST elevation myocardial infarction (NSTEMI) (Acute) Elevated troponin I level (Acute) Right upper quadrant abdominal pain (Acute) Chronic heart failure with preserved ejection fraction (Chronic) Restless legs syndrome (Acute) Rhinitis, nonallergic, chronic (Acute) Tendinitis (Acute) Chest pain (Acute) Migraine headache without aura (Acute) Lichen sclerosus (Acute) MARYLOU (obstructive sleep apnea) (Chronic) Migraine with aura and without status migrainosus, not intractable (Acute 02/24/16) Medical History Myocardial infarction 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 Mild intermittent asthma Atherosclerosis of renal artery Heart failure Supraventricular tachycardia Atrial fibrillation Superior mesenteric artery stenosis (~03/10/22) see CTA abdomen and pelivs: 80% narrowing of SMA origin Renal artery stenosis (~03/10/22) right renal artery stenosis per CTA abomen/pelvis Hx of supraventricular tachycardia Infiltrate of lower lobe of left lung present on imaging study Acute non-ST elevation myocardial infarction (NSTEMI) COVID-19 Left lateral epicondylitis Arthritis of carpometacarpal (CMC) joint of left thumb Left wrist pain CHI (closed head injury) Acute bronchitis Non-ST elevation OR (NSTEMI) Insomnia Asthma Migraine Overweight Endometriosis Depression Surgical History History of radiofrequency ablation (RFA) procedure for cardiac arrhythmia Hx of tubal ligation History of partial hysterectomy Family History Daughter Migraines Mother Hypertension Father Heart disease Social History Smoking/Tobacco Use Status: Never Smoking risk assessment performed?: Yes Alcohol Intake: never Drug use: Never Substance use type: does not use Housing: house Current gender identity: female Do you feel safe at home: Yes Do you feel safe in your relationship?: Yes Female Reproductive History Menstrual Menopause type: surgical History History 2 Para 2 Hx # Term Pregnancies Multiple births Hx # Pregnancies Ectopic pregnancies AB induced Hx Number of Living Children AB spontaneous Meds Allergies and Home Medications Allergies Allergy/AdvReac Type Severity Reaction Status Date / Time acetaminophen (From Tylenol) AdvReac Intermediate jittery Unverified 09/20/23 14:26 like too much caffeine clobetasol AdvReac Intermediate Skin Rash Verified 09/20/23 14:26 codeine AdvReac Mild Not able Verified 09/20/23 14:26 to sleep ibuprofen AdvReac migraines Unverified 09/20/23 14:26 environmental Allergy Mild sneezing/triggers Uncoded 09/20/23 14:26 her asthma Home Medications ?Medication ?Instructions ?Recorded ?Confirmed ?Type fluticasone propionate 50 2 spray NS DAILY 12/23/16 09/20/23 History mcg/actuation nasal spray,suspension (Flonase Allergy Relief) ropinirole 1 mg tablet 1 mg PO BID 06/12/20 09/20/23 History duloxetine 60 mg capsule,delayed 60 mg PO DAILY #30 mg 08/19/20 09/20/23 Rx release (Cymbalta) albuterol sulfate 90 mcg/actuation 2 puff inhalation Q4H PRN 05/30/21 09/20/23 History aerosol inhaler loratadine 10 mg tablet (Allergy 10 mg PO DAILY PRN 05/30/21 09/20/23 History Relief (loratadine)) nitroglycerin 0.4 mg sublingual 0.4 mg sublingual Q5M PRN 09/25/21 09/20/23 History tablet erenumab-aooe 140 mg/mL 140 mg subcut QMONTH #1 mL 07/28/22 09/20/23 Rx subcutaneous auto-injector (Aimovig Autoinjector) rimegepant 75 mg disintegrating 75 mg PO ONCE PRN migraine 08/25/22 09/20/23 Rx tablet (Nurtec ODT) headache #10 tabs clobetasol 0.05 % topical ointment 1 applic topical DIRECTED 08/28/22 09/20/23 History omeprazole 20 mg capsule,delayed 20 mg PO DAILY 08/28/22 09/20/23 History release gabapentin 600 mg tablet 600 mg PO QHS #90 tabs 01/04/23 09/20/23 Rx topiramate 100 mg tablet (Topamax) 100 mg PO QHS #90 tab-caps 01/18/23 09/20/23 Rx melatonin 10 mg capsule 10 mg PO HS PRN 04/16/23 09/20/23 History metolazone 2.5 mg tablet 2.5 mg PO DAILY 06/14/23 09/20/23 History apixaban 5 mg tablet 5 mg PO BID 08/13/23 09/20/23 History empagliflozin 10 mg tablet 10 mg PO DAILY 08/13/23 09/20/23 History (Jardiance) ranolazine 1,000 mg 1,000 mg PO BID 08/13/23 09/20/23 History tablet,extended release,12 hr spironolactone 25 mg tablet 25 mg PO DAILY 08/13/23 09/20/23 History torsemide 40 mg tablet 40 mg PO DAILY 08/13/23 09/20/23 History atorvastatin 80 mg tablet 40 mg PO QPM 09/16/23 09/20/23 History metoprolol tartrate 25 mg tablet 25 mg PO BID 09/16/23 09/20/23 History montelukast 10 mg tablet 10 mg PO DAILY PRN 09/16/23 09/20/23 History potassium chloride 20 mEq 20 meq PO BID 09/16/23 09/20/23 History tablet,extended release(part/cryst) Exam Narrative Exam Narrative: obese, well appearing female laying in bed in no acute distress, AOx4, heart RRR, lungs CTAB, abdomen soft, non-tender, non-distended Results Labs 09/20/23 14:41 09/20/23 14:41 Labs: Laboratory Results - last 24 hr 09/20/23 14:41 WBC 8.85 RBC 5.04 Hgb 16.0 H Hct 45.5 MCV 90 MCH 31.7 MCHC 35.2 RDW 12.5 Plt Count 333 MPV 10.5 Immature Gran % 0.5 Neutrophils % 63.9 Lymphocytes % 21.1 Monocytes % 12.2 Eosinophils % 2.0 Basophils % 0.3 Nucleated RBC % 0.0 Absolute Neutrophils 5.65 Absolute Lymphocytes 1.87 Absolute Monocytes 1.08 H Absolute Eosinophils 0.18 Absolute Basophils 0.03 PT 10.2 INR 1.0 APTT 27.6 Sodium 130 L Potassium 2.8 L* Chloride 85 L Carbon Dioxide 35.6 H Anion Gap 9.4 BUN 48 H Creatinine 2.4 H Est GFR (CKD-EPI 2020) 23.41 Glucose 108 H Calcium 9.5 Magnesium 3.2 H Total Bilirubin 0.52 AST 29 ALT 33 Alkaline Phosphatase 77 Troponin I 655 H* NT-Pro-B Natriuret Pep 4763 H Total Protein 9.3 H Albumin 4.7 Last Vital Signs Temp 97.8 F 09/20/23 14:17 Pulse 43 L 09/20/23 17:15 Resp 15 09/20/23 17:20 BP 96/32 L 09/20/23 17:15 Pulse Ox 98 09/20/23 17:20 Time Spent Time spent with Patient: >75 minutes Time was spent: preparing to see the patient(eg.review tests), obtaining and/or reviewing separately otained hiistory, ordering medications,tests, procedures, referring, communicating with other health pharmacist critical care, indepentently interpreting results, counseling the patient and care coordination
--- NOTE | 2023-09-20 18:15 | W.PC.ACHO ---
Registration Status: Primary Language: Preferred Language: ED Information & Data Chief Complaint Chest Pain 09/20/23 17:09 Triage Note Pt arrives to ED c/o CP that 09/20/23 14:17 began this weekend. Pt has a hx of HF and was recently admitted at [facility] for an NSTEMI. Pt is having dizziness, nausea, and LT sided tingling/numbness; also dysphasia. Equal strength bilateral upper and lower exts. 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) Renal artery stenosis (~03/10/22) Hx of supraventricular tachycardia Infiltrate of lower lobe of left lung present on imaging study Acute non-ST elevation myocardial infarction (NSTEMI) COVID-19 Left lateral epicondylitis Arthritis of carpometacarpal (CMC) joint of left thumb Left wrist pain CHI (closed head injury) Acute bronchitis Non-ST elevation [place] (NSTEMI) Insomnia Asthma Migraine Overweight Endometriosis Depression (Last Reviewed 09/20/23 @ 17:00 by Jasne Montes MD) History of radiofrequency ablation (RFA) procedure for cardiac arrhythmia Hx of tubal ligation History of partial hysterectomy Most Recent Vital Signs Temperature 36.6 C 09/20/23 14:17 Temperature Source Skin 09/20/23 14:17 Pulse 46 L 09/20/23 18:01 Pulse 48 L 09/20/23 18:10 Respiratory Rate 12 09/20/23 18:10 Respiratory Effort Normal, Non-Labored 09/20/23 14:44 Respiratory Depth Normal 09/20/23 14:44 Respiratory Pattern Normal 09/20/23 14:44 Blood Pressure 99/51 L 09/20/23 18:01 Blood Pressure Mean 66 09/20/23 18:01 Blood Pressure Position Sitting 09/20/23 14:17 Pulse Oximetry 99 09/20/23 18:10 Oxygen Delivery Method Nasal Cannula 09/20/23 16:25 Oxygen Flow Rate 2 09/20/23 16:25 Pain Level 4 09/20/23 14:17 Allergies acetaminophen (From Tylenol) Adverse Reaction (Intermediate, Unverified 09/20/23 14:26) jittery like too much caffeine clobetasol Adverse Reaction (Intermediate, Verified 09/20/23 14:26) Skin Rash codeine Adverse Reaction (Mild, Verified 09/20/23 14:26) Not able to sleep ibuprofen Adverse Reaction (Unverified 09/20/23 14:26) migraines environmental Allergy (Mild, Uncoded 09/20/23 14:26) sneezing/triggers her asthma Precautions Isolation Suicide precaution 09/20/23 14:44 IV IV Catheter Type [Right Saline Lock Antecubital] IV Catheter Gauge [Right 20 Antecubital] Diagnostics 09/20/23 09/20/23 Range/Units 17:49 14:41 WBC 8.85 (4.4-10.8) 10^3/uL RBC 5.04 (3.93-5.22) 10^6/uL Hgb 16.0 H (11.2-15.7) g/dL Hct 45.5 (36.0-46.0) % MCV 90 (80-95) fL MCH 31.7 (27.0-33.0) pg MCHC 35.2 (32.0-36.0) % RDW 12.5 (11.7-14.6) % Plt Count 333 (130-400) 10^3/uL MPV 10.5 (8.0-11.0) fL Immature Gran % 0.5 % Neutrophils % 63.9 % Lymphocytes % 21.1 % Monocytes % 12.2 % Eosinophils % 2.0 % Basophils % 0.3 % Nucleated RBC % 0.0 (0.0-0.3) % Absolute Neutrophils 5.65 (1.2-6.7) 10^3/uL Absolute Lymphocytes 1.87 (1.2-3.4) 10^3/uL Absolute Monocytes 1.08 H (0.1-0.8) 10^3/uL Absolute Eosinophils 0.18 (0.0-0.7) 10^3/uL Absolute Basophils 0.03 (0.0-0.2) 10^3/uL PT 10.2 (9.1-11.1) sec INR 1.0 (0.9-1.1) APTT 27.6 (23.6-32.8) sec Sodium 130 L (136-145) mmol/L Potassium 2.8 L* (3.5-5.1) mmol/L Chloride 85 L (98-107) mmol/L Carbon Dioxide 35.6 H (21.0-32.0) mmol/L Anion Gap 9.4 (3-11) mmol/L BUN 48 H (7-18) mg/dL Creatinine 2.4 H (0.55-1.02) mg/dL Est GFR (CKD-EPI 2020) 23.41 (mL/min/1.73m2) Glucose 108 H (74-106) mg/dL Calcium 9.5 (8.5-10.1) mg/dL Magnesium 3.2 H (1.8-2.4) mg/dL Total Bilirubin 0.52 (0.2-1.0) mg/dL AST 29 (15-37) U/L ALT 33 (14-59) U/L Alkaline Phosphatase 77 (46-116) U/L Troponin I Pending 655 H* (< or =60) ng/L NT-Pro-B Natriuret Pep 4763 H (<300) pg/mL Total Protein 9.3 H (6.4-8.2) g/dL Albumin 4.7 (3.4-5.0) g/dL Intake and Output - 24 Hour Total 09/20/23 14:12 thru 09/20/23 17:34 Intake Total 350 Balance 350 Weight 100.8 kg Intake: IV 350 Problems (Last Reviewed 09/20/23 @ 17:00 by Jasen Montes MD) Dizziness (Acute) Hypokalemia (Acute) CATIE (acute kidney injury) (Acute) Acute dehydration (Acute) Elevated troponin (Acute) Chronic heart failure with preserved ejection fraction (Chronic) Restless legs syndrome (Acute) MARYLOU (obstructive sleep apnea) (Chronic) v v v v v v v v v Sending and/or Receiving Nurses: Please use comment section below to note any information pertinent to the patient hand-off not included above. Information / Comments: BP low, 500mL bolus in the ED. Patient recieved 10 mEq in the ED. Dizziness upon standing. Report received from:ERWIN Swann
[2023-09-20 18:20] LABS: Troponin I 588 ng/L (< or =60)
--- OUTSIDE RECORDS SUMMARY | 2023-09-20 18:28 | XMS_ITS | Encounter Summary ---
Author Organization [facility] [place] [address] Care Team Providers Care [facility] Consultant Name Role Phone Polo Pearce Primary Care Provider [phone] Encounter Details Date Type Department Care Team (Late st Contact Info) Description 09/20/2023 [place] [id number] Social History Tobacco Use Types Packs/Day Years Used Date Smoking Tobacco: Never Smokeless Tobacco: Never Alcohol Use Standard Drinks/Week Comments Never 0 (1 standard drink = 0.6 oz pur e alcohol) [facility] Utilities Answer Date Recorded In [...] slept in a mcc (including now)? No 06/15/2023 Housing Stability Vital Sign Answer Mitchell e Recorded In the last 12 months, was t here a time when you were not able to pay the mortgage or rent on time? No 08/30/2023 In the past 12 months, how m any times have you moved where you were living? 1 08/30/2023 At any time in the past 12 m [facility], were you homeless or living in a mcc (including now)? No 08/30/2023 IPV Inpatient Questions [...] AM EDT Tech [place] [phone] Jose Cook 10/08/2023 9:30 AM EDT Office [place] [address] MD [facility] DR VASCULAR SURGERY [place], [place] [id number] 10/21/2023 10:30 AM EDT Appointment [place] [phone] Mary Reyes APRN [facility] [place] [address] 10/21/2023 11:30 AM EDT Appointment [place] [address] Mary Reyes, [facility] [address] 10/21/2023 12:30 PM EDT Appointment [place] [address] Mary Reyes, [facility] [place] [address] 10/21/2023 1:30 PM EDT Appointment [place] [address] Mary Reyes, [facility] [address] 10/21/2023 2:30 PM EDT Appointment [place] [address] Mary Reyes, [facility] [place] [address] 10/26/2023 4:00 PM EDT Office Visit Cardiology at [address] [place] [phone] Jaspreet Kinsey MD [facility] [place] [address] 10/28/2023 9:00 AM EDT [place] [address] 10/29/2023 10:00 AM EDT Clinical [place] [address] 10/29/2023 10:15 AM EDT Procedure [place] [address] 11/01/2023 5:00 PM EDT Office Visit Gastroenterology at [place] [phone] Selene Browning, PhD [facility] [place] [address] 11/22/2023 4:40 PM EDT Office Visit Cardiology at [place] [phone] Porsha Mcdaniels MD [facility] [place] [address] 12/13/2023 10:00 AM EDT Clinical Support [place] [phone] [facility] [place] [address] documented as of this encounter Procedures Procedure Name Priority Date/Time Associated Diagnosis Comments ECG SCAN Routine 09/20/2023 4:51 PM EDT documented in this encounter Results * Scan Doc: ECG (09/20/2023 4:51 PM EDT) Historical Provider MD FLEMING MGR SCAN EX T ORDR/RSLT documented in this encounter Visit Diagnoses Not on filedocumented in this encounter Care Teams W[facility] Care Center Consultant Relationship Specialty Start Date End Date Polo Pearce PA [address] [place] [address] PCP - General Internal Medicine 06/09/21 documented as of this encounter
--- OUTSIDE RECORDS SUMMARY | 2023-09-20 18:28 | XMS_ITS | Clinical Summary ---
Author Organization [facility] Address [place] [address] Care Team Providers Care Assembler [employer]unglasses Name Role Phone Polo Pearce Primary Care Provider [phone] Allergies Active Allergy Reactions Criticality Noted Date [...] spacer Active fluticasone propionate (FLONASE) 50 mcg/actuation [place], Suspension 1 spray by Each Nare route [...] 04/29/2020 Overview (07/26/2023): 05/2021: subacute, presented to [facility] with RUQ pain, weight [...] sarcoid. Anterior scar pattern 06/2023: Admission at [facility] ([facility]). TTE with low-normal EF, though anterior [...] consider referral to the clare Mcdaniels of [facility] expertise IN the meantime, increase torsemide [...] discharge summary and medication administration record from [facility] to see what was given [...] upper lobe. Started on eliquis 08/2022 TTE ([place]): normal bi-v s/f. No significant VHD Assessment [...] diagnosis of hypertension 06/07/2021 07/23/2021 Non-ST elevation MS (NSTEMI) 08/29/2019 03/16/2022 Rhinitis, nonallergic, chronic 06/26/2010 07/30/2022 Encounters Date Type Department Care Team Description 09/20/2023 Telephone [place] [address] Vito Pearce MD 09/20/2023 External [place] [address] 08/28/2023 8:27 PM EDT - 09/10/2023 5:31 PM EDT Hospital Encounter Heart and Vascular Unit Level 3 Wing B at [place] [phone] Kia Angelo MD Etiwy, Muhammad, MD Ramachandra, [...] PM EDT Ancillary Procedure Radiology Library at [place] [phone] Jaspreet Kinsey MD 08/28/2023 Telephone Cardiology [place] [address] Ciro Lovell MD 08/28/2023 External Results Administration [place] [phone] 08/25/2023 1:05 PM EDT Laboratory Appointment Lab 3L [place] [phone] Heart failure with preserved ejection fraction, unspecified HF chronicity; Chronic kidney disease, unspecified CKD stage; Altered bowel function; Depression, unspecified depression type 08/25/2023 12:55 PM EDT Laboratory Appointment Lab [address] [place] [address] 08/25/2023 10:00 AM EDT Office Visit Gastroenterology at [address] CalvMary mazariegos APRN Altered bowel function; Depression, unspecified depression type; Gastroesophageal reflux disease, unspecified whether esophagitis present; Esophageal dysphagia; Nausea without vomiting; Early satiety 08/25/2023 Travel 08/17/2023 11:53 AM EDT - 08/17/2023 11:59 PM EDT Hospital Encounter Non-[place] [address] Porsha Mcdaniels MD Chest pain, unspecified type Discharge Disposition: Home 08/17/2023 11:52 AM EDT Hospital Encounter [place] [phone] Porsha Mcdaniels MD Chest pain, unspecified type Discharge Disposition: Home 08/17/2023 Travel 08/03/2023 9:30 AM EDT Office [place] [phone] Judith Butler APRN Mesenteric ischemia 08/03/2023 8:30 AM EDT Tech [place] [phone] Eladio Boyer Mesenteric ischemia 08/03/2023 Travel 07/29/2023 8:00 AM EDT Office Visit Cardiology at [address] [address] Porsha Mcdaniels MD Chest pain, unspecified type 07/29/2023 Travel 07/26/2023 3:20 PM EDT Office Visit Cardiology at [address] [phone] Jaspreet Kinsey MD Heart failure with preserved ejection fraction, unspecified HF chronicity; Paroxysmal atrial fibrillation; SVT (supraventricular tachycardia); Chest pain, unspecified type 07/26/2023 Travel 07/13/2023 Telephone Cardiology at [address] [address] Sydney Gamez RN 07/12/2023 Refill Cardiology at [address] [place] [address] Jaspreet Kinsey MD 07/08/2023 Orders [place] [address] Porsha San MD Chronic abdominal pain 07/07/2023 2:05 PM EDT Anesthesia Event Gastroenterology at [place] [phone] Constantine Velez MD 07/07/2023 1:00 PM EDT - 07/07/2023 2:00 PM EDT [place] [address] Lashonda Villa MD EGD WITH BIOPSY (WRVU 2.39) 07/02/2023 10:10 AM EDT - 07/02/2023 11:59 PM EDT Hospital [place] [address] Discharge Disposition: Home 06/28/2023 Orders Only Vascular Surgery at [address] [phone] Mamie Marx, BRAKE DRUM LATHE OPERATOR Mesenteric ischemia 06/22/2023 Travel 06/14/2023 11:01 PM EDT - 07/09/2023 4:44 PM EDT Hospital Encounter Heart and Vascular Unit Level 4 [place] [address] Jaspreet Kinsey MD Ruiz, Xavier L, MD Ramachandra, Nayana, MD Battula, Anusha K, MD Kussaga, Frank M, MD Paroxysmal atrial fibrillation; Chest [...] oz pur e alcohol) [facility] Utilities Answer Date Recorded In the [...] in a long-term (including now)? No 06/15/2023 Housing Stability Vital Sign Answer Mitchell e Recorded In the last 12 months, was t here a time when you were not able to pay the mortgage or rent on time? No 08/30/2023 In the past 12 months, how m any times have you moved where you were living? 1 08/30/2023 At any time in the past 12 m [facility], were you homeless or living in a long-term (including now)? No 08/30/2023 IPV Inpatient Questions [...] AM EDT Tech Visit Vascular Lab at [place] [phone] Jose Cook 10/08/2023 9:30 AM EDT Office Visit Vascular Surgery at [place] [phone] MD [facility] [place] [address] 10/21/2023 10:30 AM EDT Appointment [place] [phone] Mary Reyes APRN [facility] [place] [address] 10/21/2023 11:30 AM EDT Appointment [place] [phone] Mary Reyes APRN [facility] [place] [address] 10/21/2023 12:30 PM EDT Appointment [place] [address] Mary Reyes [facility] [place] [address] 10/21/2023 1:30 PM EDT Appointment [place] [address] Mary Reyes [facility] [place] [address] 10/21/2023 2:30 PM EDT Appointment [place] [address] Mary Reyes, [facility] [place] [address] 10/26/2023 4:00 PM EDT Office Visit Cardiology at [address] [phone] Jaspreet Kinsey MD [facility] [address] 10/28/2023 9:00 AM EDT Office Visit [place] [address] 10/29/2023 10:00 AM EDT Clinical Support [place] [address] 10/29/2023 10:15 AM EDT Procedure visit [place] [address] 11/01/2023 5:00 PM EDT Office [place] [phone] Selene Brwoning, PhD [facility] [address] 11/22/2023 4:40 PM EDT Office Visit Cardiology at [address] [phone] Porsha Mcdaniels MD [facility] [address] 12/13/2023 10:00 AM EDT Clinical [place] [phone] Lucero Romero, ALVA [facility] [address] Health Maintenance Due Date Last Done Comments [...] history exists Medical Devices Implanted Type Area Steel Finisher Device Identifier Shelf Expiration Date Model / Serial / Lot Stent Graft [id number] cm Il Sherry Barberx ([id number]) ([employer])-4/08/2023 Implanted:Qty : 1 on 07/02/[address] MD IMPLANTS Arterial [employer] GORE AN [id number] / / [id number] Description:sma stent placem ent Procedures Procedure Name Priority Date/Time Associated Diagnosis Comments ECG SCAN Routine 09/20/2023 4:51 PM EDT SCAN DOC: TELEMETRY STRIPS 09/10/2023 8:40 AM [...] 7:41 AM EDT DIFFERENTIAL, AUTOMATED Routine 09/07/19 24 2:56 AM EDT HEMOGRAM Routine 09/07/2023 2:56 [...] 8:17 AM EDT DIFFERENTIAL, AUTOMATED Routine 09/06/19 24 2:44 AM EDT HEMOGRAM Routine 09/06/2023 2:44 [...] 7:34 AM EDT DIFFERENTIAL, AUTOMATED Routine 09/05/19 1:58 AM EDT HEMOGRAM Routine 09/05/2023 1:58 [...] 4:25 AM EDT DIFFERENTIAL, AUTOMATED Routine 09/04/19 24 3:03 AM EDT HEMOGRAM Routine 09/04/2023 3:03 [...] myocardial infarction (NSTEMI) DIFFERENTIAL, AUTOMATED Routine 09/03/19 24 2:39 AM EDT HEMOGRAM Routine 09/03/2023 2:39 [...] unspecified CKD stage HC DNA AB DS (NOATAK) Routine 08/25/2023 11:28 AM EDT Heart failure [...] 3:04 AM EDT DIFFERENTIAL, AUTOMATED Routine 07/09/19 3:03 AM EDT HEMOGRAM Routine 07/09/2023 3:03 [...] Routine 07/07/2023 2:25 PM EDT Colonoscopy, Biopsy ([id number]) 07/07/2023 2:10 PM EDT post prandial pain Upper Gi Endoscopy, Biopsy ([id number]) 07/07/2023 2:10 PM EDT post prandial pain [...] 3:54 AM EDT DIFFERENTIAL, AUTOMATED Routine 07/06/19 3:54 AM EDT HEMOGRAM Routine 07/06/2023 3:54 [...] & AUTO DIFF Routine 3:47 AM EDT EKG 12-LEAD STAT 07/03/2023 [...] 3:38 AM EDT DIFFERENTIAL, AUTOMATED Routine 06/24/19 24 3:38 AM EDT HEMOGRAM Routine 06/24/2023 3:38 [...] 9:13 AM EDT DIFFERENTIAL, AUTOMATED Routine 06/23/19 24 4:12 AM EDT HEMOGRAM Routine 06/23/2023 4:12 [...] Last 3 Months Results * Scan Doc: ECG (09/20/2023 4:51 PM EDT) Only the most recent of2 resultswithin the time period is included. Historical Provider MD FLEMING MGR SCAN EX T ORDR/RSLT * Scan Doc: Telemetry Strips (09/10/2023 8:40 AM EDT) Only the most recent of123 resultswithin the time period is included. Narrative 09/10/2023 8:40 AM EDT Ordered by an unspecified provider. Scanning Provider MEDIA MGR SCAN EXT O RDR/RSLT * (ABNORMAL) Hemogram (09/10/2023 4:17 AM EDT) Only the most recent of33 resultswithin the time period is included. WBC 7.6 4.0 - 9.5 x10(3)/[facility] RBC 4.15 4.00 - 5.21 x10(6)/[facility] Hemoglobin 13.0 11.7 - 15.5 g/dL [facility] Hematocrit 39.2 35.7 - 45.8 % [facility] MCV 94.5(H) 82.6 - 94.4 fL [facility] MCH 31.3 27.1 - 32.0 pg [facility] MCHC 33.2 31.7 - 35.0 g/dL [facility] Platelets 267 145 - 357 x10(3)/[facility] RDWSD 44.6 37.0 - 46.0 [facility] LABORATORY RDWCV 13.1 11.5 - 14.1 % [facility] MPV 10.3 7.6 - 12.9 [facility] nRBC % Auto 0.0 % [facility] nRBC Abs Auto 0.000 0.000 - 0.000 x10(3)/[facility] Blood 09/10/2023 4:17 AM EDT 09/10/2023 4:29 AM EDT Narrative Resulting Agency Comment Spec In Lab Eufemia Copeland MD HEMATOLOGY ORDERAB LES [facility] [place] [address] * Differential, Automated (09/10/2023 4:17 AM EDT) Only the most recent of33 resultswithin the time period is included. Neutrophils % 54.4 % [facility] Neutr Abs (ANC) 4.17 1.70 - 6.10 x10(3)/[facility] Lymphocytes % 33.2 % [facility] Lymphocytes Abs 2.5 0.9 - 3.2 x10(3)/[facility] Monocytes % 8.4 % [facility] Monocyte Abs 0.6 0.3 - 0.9 x10(3)/[facility] Eosinophils % 3.0 % [facility] Eosinophils Abs 0.2 0.0 - 0.4 x10(3)/[facility] Basophils % 0.7 % [facility] Basophils Abs 0.0 0.0 - 0.1 x10(3)/[facility] Immature Gran % 0.30 % [facility] Comment: Immature granulocytes(IG's)percentage and absolute count will include metamyelocytes, myelocytes, and promyelocytes. Blood smears from CBCs yielding IG's will be scanned manually for concordance. If this scan disagrees with the automated IG or if promyelocytes are noted, a manual differential will be performed. Shonda Gran Abs 0.02 0.00 - 0.04 x10(3)/[facility] Blood 09/10/2023 4:17 AM EDT 09/10/2023 4:29 AM EDT Narrative Resulting Agency Comment Spec In Lab Eufemia Copeland MD HEMATOLOGY ORDERAB LES Performing Organization Address City/State/[facility] Co de Phone Number [facility] [place] [address] * Magnesium (09/10/2023 4:17 AM EDT) Only the most recent of34 resultswithin the time period is included. Magnesium 0.99 0.69 - 1.07 mmol/L [facility] Blood 09/10/2023 4:17 AM EDT 09/10/2023 4:29 AM EDT Narrative Resulting Agency Comment Spec In Lab Eufemia Copeland MD CHEMISTRY ORDERABL ES [facility] [place] [address] * (ABNORMAL) Basic Metabolic Panel (non-fasting) (09/10/2023 [...] MD CHEMISTRY ORDERABL ES Performing Organization Address City/[facility] Co de Phone Number [facility] [place] [address] * EKG 12 Lead (09/08/2023 4:01 AM EDT) Only the most recent of24 resultswithin the time period is included. Ventricular rate 59 BPM MUSE SYSTEM Atrial Rate 59 BPM MUSE SYSTEM P-R Interval 192 ms MUSE SYSTEM QRS Duration 92 ms MUSE SYSTEM Q-T Interval 452 ms MUSE SYSTEM QTC Calculated (Bezet) 447 ms MUSE SYSTEM Calculated P [place] 38 degrees MUSE SYSTEM Calculated R [place] 51 degrees MUSE SYSTEM Calculated T [place] -18 degrees MUSE SYSTEM INTERPRETATION Sinus bradycardia Diffuse ST depression, consider subendocardial injury Abnormal ECG When compared with ECG of 03-SEP-2023 06:02, Premature atrial complexes are no longer Present QT has shortened I personally reviewed the tracing and edited the fellows interpretation Confirmed by fellow Vito Pearce ([id number]) on 09/08/2023 7:40:32 AM Confirmed by MD Angelo Danette ([id number]) on 09/08/2023 2:12:57 PM MUSE SYSTEM 09/08/2023 4:01 AM EDT 09/08/2023 2:12 PM EDT Eufemia Copeland MD ECG ORDERABLES Performing Organization Address [facility] Co de Phone Number MUSE SYSTEM * CT Abdomen & Pelvis w Contrast (09/05/2023 4:25 PM EDT) Only the most recent of2 resultswithin the time period is included. WORKSTATION ID [id number] RAD Anatomical Region Laterality Modality Abdomen, Pelvis [...] who have questions please contact the health home care aide that requested 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 ? Narrative [...] patients who have questions please contactthe health home care aide that requested 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 Samantha Broussard MD IMG CT ORDERABLES * Miscellaneous Lab request (09/05/2023 1:58 AM EDT) [facility] Lab Result Request received in lab. [facility] Blood 09/05/2023 1:58 AM EDT 09/05/2023 2:14 AM EDT Narrative Resulting Agency Comment Spec In Lab Samantha Broussard MD HEMATOLOGY ORDERABLE S Performing Organization Address City/[facility]/ZIP Co de Phone Number [facility] [place] [address] * IgG 4 (09/05/2023 1:58 AM EDT) [facility] IgG 4 47.7 3.9 - 86.4 mg/dL [facility] Blood 09/05/2023 1:58 AM EDT 09/05/2023 2:13 AM EDT Narrative Resulting Agency Comment Spec In Lab Samantha Broussard MD IMMUNOLOGY ORDERABLE S Performing Organization Address [facility]/ZIP Co de Phone Number [facility] [place] [address] * (ABNORMAL) Potassium (09/04/2023 9:13 AM EDT) Only the most recent of3 resultswithin the time period is included. Potassium 3.2(L) 3.5 - 5.0 mmol/L [facility] [...] CHEMISTRY ORDERABLES Performing Organization Address [facility] Co de Phone Number [facility] [place] [address] * (ABNORMAL) Protein Electrophoresis, serum (09/03/2023 2:39 [...] CHEMISTRY ORDERABLES Performing Organization Address [facility]/ZIP Co de Phone Number [facility] [place] [address] * Protein Electrophoresis, urine, random (09/02/2023 9:30 PM EDT) [facility] U Protein Ran <6 0 - 12 [...] In Lab Lorna Herr MD URINE ORDERABLES [facility] [place] [address] * (ABNORMAL) Troponin (09/02/2023 8:16 PM EDT) Only the most recent of9 resultswithin the time period is included. [facility] Troponin-T HS 24(H) <=14 ng/L [facility] Comment: This patient's troponin [...] troponin value can be found in the [facility] Laboratory Test Catalog Troponin - [facility] Laboratory Test Catalog Reference: Fourth Arnold Definition of Myocardial Infarction. Journal of the [place] [employer] 2018;72:9054-2357 Blood 09/02/2023 8:16 PM EDT 09/02/2023 8:25 PM EDT Narrative Resulting Agency Comment Spec In Lab Lorna Herr MD CHEMISTRY ORDERABLES Performing Organization Address [facility] Co de Phone Number [facility] [place] [address] * (ABNORMAL) pro-Brain Natriuretic Peptide (09/02/2023 5:05 PM EDT) Only the most recent of4 resultswithin the time period is included. ProBNP 985(H) <=124 pg/mL [facility] Blood 09/02/2023 5:05 PM EDT 09/02/2023 5:17 PM EDT Narrative Resulting Agency Comment Spec In Lab Lorna Herr MD CHEMISTRY ORDERABLES Performing Organization Address [facility] Co de Phone Number [facility] [place] [address] * Phosphorus (08/31/2023 5:03 PM EDT) Only the most recent of20 resultswithin the time period is included. Phosphorus 3.8 2.5 - 4.5 mg/dL [facility] Blood 08/31/2023 5:03 PM EDT 08/31/2023 5:08 PM EDT Narrative Resulting Agency Comment Spec In Lab Eufemia Copeland MD CHEMISTRY ORDERABL ES Performing Organization Address City/[facility]/ZIP Co de Phone Number [facility] [place] [address] * Heparin (unfractionated) Level (08/30/2023 3:09 AM EDT) Only the most recent of26 resultswithin the time period is included. Pathologist [facility] Heparin UFH Level 0.46 IU/mL [facility] [...] HEMATOLOGY ORDERABLE S [facility] [place] [address] * ECHO LMTD W CONTRAST W LMTD SPEC DOPP COLOR DOPP (08/29/2023 11:35 AM EDT) [facility] EF 50 HEARTLAB SYSTEM Anatomical Region Laterality Modality Cardiac Other 08/29/2023 9:47 AM EDT Narrative 08/29/2023 12:27 PM EDT [address] [place] [address] ? Echocardiogram Report Name: LOIDA ROQUE ? Study Date: 08/29/2023 09:47 AMBP: 100/55 mmHg ? Patient Location: [place] [id number] : 1970 ? Height: 163 cm ? Account: [id number] Age: 53 yrs ? Weight: 102 kg Gender: Female ?BSA: 2.1 m2 Ordering Physician: ARCHIE MCMANUS Referring Physician: SKIP HUMPHREY Performed By: Nalini Alvares RDCS Exam Location: [facility]. Interpretation Summary Left ventricle is normal in size. There is low normal global systolic function, with focal hypokinesis in the anteroseptum as ascribed. Right ventricle is not well visualized. No hemodynamically significant valve disease. Compared to prior studies over the past 6 months, there has been stable global LV systolic function, with oscillating regional function of the anterior wall. Procedure Limited - [id number]. Image enhancement Optison was used for left [...] Note Jaspreet Kinsey MD - 08/29/2023 [address] [place] [address] Echocardiogram Report Name: LOIDA ROQUE Study Date: 409:47 AMBP: 100/55 mmHg Patient Location: [id number] : 1970 Height: 163 cm Account: [id number] Age: 53 yrs Weight: 102 kg Gender: Female BSA: 2.1 m2 Ordering Physician: ARCHIE MCMANUS Referring Physician: SKIP HUMPHREY Performed By: Nalini Alvares HUMPHREY Exam Location: [facility]. Interpretation Summary Left ventricle is normal in size. There is low normal global systolicfunction, with focal hypokinesis in the anteroseptum as ascribed. Right ventricle is not well visualized. No hemodynamically significant valve disease. Compared to prior studies over the past 6 months, there has been stableglobal LV systolic function, with oscillating regional function of the anteriorwall. Procedure Limited - [id number]. Image enhancement Optison was used for left [...] CRP, acute inflammation (08/29/2023 4:01 AM EDT) [facility] CRP <3.0 <=4.9 mg/L [facility] Blood Venous Draw / Unknown 08/29/2023 4:01 AM EDT 08/29/2023 4:13 AM EDT Narrative Resulting Agency Comment Spec In Lab Eufemia Copeland MD CHEMISTRY ORDERABL ES [facility] [place] [address] * Green Tube HOLD (08/29/2023 4:01 AM EDT) [facility] Green Hold Sample in lab. [facility] Blood Venous Draw / Unknown 08/29/2023 4:01 AM EDT 08/29/2023 4:09 AM EDT Archie Mcmanus MD CHEMISTRY ORDERABLES Performing Organization Address City/[facility] Co de Phone Number [facility] [place] [address] * Sedimentation rate (08/29/2023 4:01 AM EDT) [facility] Sed Rate 11 2 - 39 mm/hr [...] MD HEMATOLOGY ORDERAB LES Performing Organization Address City/[facility] Co de Phone Number [facility] [place] [address] * (ABNORMAL) Hepatic Function Panel (08/28/2023 9:07 PM EDT) Only the most recent of5 resultswithin the time period is included. [facility] Total Protein 6.6 6.1 - 8.0 g/dL [...] MD CHEMISTRY ORDERABLES [facility] [place] [address] * Lipid Panel (Reflex Direct LDL) (08/28/2023 9:07 PM EDT) Chol, Total 203 mg/dL [facility] Comment: Desirable: ? <200 mg/dL Borderline High: 200-239 mg/dL Higher: ?>vy=391 mg/dL Triglycerides 146 mg/dL [facility] Comment: Normal: ?<150 mg/dL Borderline High: 150-199 mg/dL High: ?200-499 mg/dL Very High: ? >ff=970 mg/dL HDL 52 mg/dL [facility] Comment: Females: High Risk: <50 mg/dL Males: High Risk: <40 mg/dL LDL Cholesterol 122 mg/dL [facility] Comment: Desirable: ? <100 mg/dL Above Desirable: 100-129 mg/dL Borderline High: 130-159 mg/dL High: ?160-189 mg/dL Very High: ? >ij=385 mg/dL Lipid Interpretation See Note [facility] [...] ACC/AHA Guidelines (most recently Ysabel et al. [facility] 12/09/21): For individuals with atherosclerotic cardiovascular disease (ASCVD)or LDL >qv=048 mg/dL, use a high-intensity statin (40-80 mg [...] MD CHEMISTRY ORDERABLES [facility] [place] [address] * Film Library- Storage Only CT Chest (08/28/2023 1:00 PM EDT) Narrative DH RAD - 08/28/2023 1:00 PM EDT This exam is auto-finalizing. It's purpose is for storage only. Jaspreet Kinsey MD IMG FILM LIBRARY ORD ERABLES [place], [place] * (ABNORMAL) Free Light Chains, Serum (08/25/2023 11:28 AM EDT) [facility] Philip Free Light Chain 3.09(H) 0.72 - 2.75 mg/dL [facility] Lambda Free Light Chain 1.65 0.57 - 2.15 mg/dL [facility] Philip Lambda FLC Ratio 1.8727 0.4000 - 2.5800 [facility] Blood 08/25/2023 11:2 8 AM EDT 08/25/2023 11:36 AM EDT Narrative Resulting Agency Comment Spec In Lab Jaspreet Kinsey MD CHEMISTRY ORDERABLES Performing Organization Address [facility] Co de Phone Number [facility] [place] [address] * Lyme IgG & IgM Antibody (08/25/2023 11:28 AM EDT) [facility] Lyme Screening Antibody Negative Negative [facility] Lyme Ab Comment Negative result does not exclude possibility of infection. [facility] Comment: Please note that as of 07/14/2022 that this testing is performed by the Special Chemistry Laboratory at [facility]. This change in testing location is associated with a change in testing methodology. Blood 08/25/2023 11:2 8 AM EDT 08/26/2023 7:26 AM EDT Narrative Resulting Agency Comment Spec In Lab Jaspreet Kinsey MD IMMUNOLOGY ORDERABLE S Performing Organization Address City/[facility]/ZIP Co de Phone Number [facility] [place] [address] * Iron and TIBC (08/25/2023 11:28 AM EDT) [facility] Iron 113 30 - 150 mcg/dL [facility] TIBC 338 250 - 450 mcg/dL [facility] Iron Saturation 33 20 - 50 % [facility] Blood 08/25/2023 11:2 8 AM EDT 08/25/2023 11:36 AM EDT Narrative Resulting Agency Comment Spec In Lab Jaspreet Kinsey MD CHEMISTRY ORDERABLES Performing Organization Address [facility] de Phone Number [facility] [place] [address] * Tissue transglutaminase, IgA (08/25/2023 11:28 AM EDT) Pathologist [facility] TTG IgA Ab 0.6 <=10.0 u/ml [facility] Comment: Negative: ??<7 units/mL Indeterminate: 7-10 units/mL Positive: ??>10 units/mL Blood 08/25/2023 11:2 8 AM EDT 08/26/2023 7:26 AM EDT Narrative Resulting Agency Comment Spec In Lab Mary Reyes APRN IMMUNOLOGY ORDERAB LES Performing Organization Address [facility] Co de Phone Number [facility] [place] [address] * Streptococcal Antibody Panel (08/25/2023 11:28 AM EDT) [facility] ASO Titer 25 0 - 530 IU/mL [facility] Comment: Test Performed by: [place] [address] Cheese Cook: Nellie Haney Ph.D.; CLIA# [id number] DNase B Ab 146 0 - 300 unit/mL [facility] Comment: Test Performed by: [place] [address] Cheese Cook: Nellie Haney Ph.D.; CLIA# [id number] Blood 08/25/2023 11:2 8 AM EDT 08/25/2023 1:02 PM EDT Narrative Resulting Agency Comment Spec In Lab Jaspreet Kinsey MD IMMUNOLOGY ORDERABLE S [facility] [place] [address] * KATHRINE Antibody Screen (08/25/2023 11:28 AM EDT) Antinuclear Ab Negative Negative [facility] Comment: This antinuclear antibody (KATHRINE) [...] to dsDNA. dsDNA Ab 1.0 <=15.0 IU/mL [facility] Comment: <10 negative 10-15 equivocal >15 positive This dsDNA antibody result was generated using a fluoroenzyme immunoassay on the Phadia 250 analyzer. This quantitative test is designed to detect IgG antibodies directed against double stranded DNA in human serum. The presence of antibodies that recognize dsDNA is a highly specific marker for systemic lupus erythematosus. Please note that as of 12/30/2021 that this testing is performed by the Special Chemistry Laboratory at [facility]. This change in testing location is associated with a change is testing method and reference intervals. Please review the results of this test in association with the posted reference intervals. Blood 08/25/2023 11:2 8 AM EDT 08/26/2023 7:26 AM EDT Narrative Resulting Agency Comment Spec In Lab Jaspreet Kinsey MD IMMUNOLOGY ORDERABLE S Performing Organization Address City/[facility]/ZIP Co de Phone Number [facility] [place] [address] * IgA (08/25/2023 11:28 AM EDT) IgA 372 70 - 400 mg/dL [facility] Blood 08/25/2023 11:2 8 AM EDT 08/25/2023 11:37 AM EDT Narrative Resulting Agency Comment Spec In Lab Mary Reyes APRN IMMUNOLOGY ORDERAB LES Performing Organization Address [facility] Co de Phone Number [facility] [place] [address] * IgG (08/25/2023 11:28 AM EDT) Pathologist [facility] IgG 1,114 700 - 1,600 mg/dL [facility] Comment: Pediatric Reference Intervals obtained from the [employer]iper Reference Interval project. http://www.Zalicusds.ca/caliperproject/index.html Blood 08/25/2023 11:2 8 AM EDT 08/25/2023 11:37 AM EDT Narrative Resulting Agency Comment Spec In Lab Mary Reyes APRN IMMUNOLOGY ORDERAB LES Performing Organization Address [facility] Co de Phone Number [facility] [place] [address] * Ferritin (08/25/2023 11:28 AM EDT) [facility] Ferritin 110 11 - 328 ng/mL [facility] Comment: Please note that as of 02/10/2023, the reference intervals for Ferritin have been updated. Blood 08/25/2023 11:2 8 AM EDT 08/25/2023 11:37 AM EDT Narrative Resulting Agency Comment Spec In Lab Jaspreet Kinsey MD CHEMISTRY ORDERABLES Performing Organization Address [facility] Co de Phone Number [facility] [place] [address] * NM PET CT Cardiac Pharmacologic Stress CT Component (08/17/2023 2:38 PM EDT) [facility] WORKSTATION ID [id number] RAD Anatomical Region Laterality Modality Positron Emissio [...] who have questions please contact the health home care aide that requested 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 ? Narrative [...] Coronary calcifications. Bilateral ground glass opacities are [id number] Procedure Note Clay Stanton MD - 08/18/2023 EXAMINATION: NM PET CT CARDIAC PHARMACOLOGIC STRESS AND REST, MT PET CTCARDIAC PHARMACOLOGIC STRESS CT COMPONENT CLINICAL [...] Coronary calcifications. Bilateral ground glass opacities are [id number] IMPRESSION Moderate-sized scar in the apical septum [...] patients who have questions please contactthe health home care aide that requested 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 Porsha Mcfarlane MD IM PET ORDERABLES * NM PET CT Cardiac Pharmacologic Stress and Rest (08/17/2023 2:38 PM EDT) WORKSTATION ID [id number] RAD Anatomical Region Laterality Modality Positron Emissio [...] who have questions please contact the health home care aide that requested 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 ? Narrative [...] Coronary calcifications. Bilateral ground glass opacities are [id number] Procedure Note Clay Stanton MD - 08/18/2023 EXAMINATION: MT PET CT CARDIAC PHARMACOLOGIC STRESS AND REST, MT PET CTCARDIAC PHARMACOLOGIC STRESS CT COMPONENT CLINICAL [...] Coronary calcifications. Bilateral ground glass opacities are [id number] IMPRESSION Moderate-sized scar in the apical septum [...] patients who have questions please contactthe health home care aide that requested 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 Porsha Mcfarlane [...] Text Report Department: Vascular Surgery Lab Patient: [id number] (LOIDA ROQUE) CPT: 72599 Referring Physician: MAMIE MARX ?? Phone: Indications: S/p SMA stenting (07/01) one month f/u, ? patency Findings: Unilateral ? Waveform ? PSV cm/s ??EDV cm/s ??Patent ?? Dary Visceral Aorta ? 71 ?14 ? Celiac Artery, Proximal ??Long-Biphasic ? 100 ?22 ? Celiac Artery, Mid ? Long-Biphasic ?99 ?19 ? Celiac Artery, Distal ?Long-Biphasic ?94 ?18 ? Sup Mes Artery Proximal [...] within mesenteric artery stents may differ from [place] arteries, with thresholds for diagnosis of significant stenosis likely being somewhat higher in stented arteries than [place].% To date, there is no evidence based consensus of stent velocity criteria. Therefore, the current interpretation is based on [place] artery thresholds. Previous Celiac/Mesenteric Studies: Date ? [...] Marx APRN VASCULAR ORDERABLES Performing Organization Address [facility] Co de Phone Number [facility] * Specimen to Pathology (07/07/2023 2:55 PM EDT) Only the most recent of3 resultswithin the time period is included. AP Specimen 07/07/2023 2:55 PM EDT 07/07/2023 2:55 PM EDT Narrative [facility] - 07/07/2023 2:55 PM EDT Specimen requisition ordered. ??Separate Pathology report to follow Lloyd Keating MD PATHOLOGY/CYTOLOGY O RDERABLES Performing Organization Address [facility] Co de Phone Number [facility] [place] [address] * Surgical Pathology Report (07/07/2023 2:25 PM EDT) Surgical Pathology Report [id number] ? Location: L4WB; 0466; A The signing [...] Sapna Verified: ??07/19/2023 13:25 ??Pathologist Performed at: ??-[facility] Dept. of Pathology, [place] [address] Manager Play: Vangie Lu MD, FCAP, ??CLIA Certificate: [id number] SPECIMEN(S) SUBMITTED A - duodenal biopsies rule [...] toto ??in 2 cassettes labeled C1-C2. ??sdy [facility] 07/07/2023 2:25 PM EDT Lashonda Villa MD PATHOLOGY/CYTOLOGY O RDERAFADUMO [facility] [place] [address] * UPPER GI ENDOSCOPY (07/07/2023 1:40 PM EDT) UPPER GI ENDOSCOPY [facility] Endoscopy Procedure Date: 07/07/2023 1:40 PM ? Patient Name: Loida Roque ? N: [id number] ? Date of : 1970 ? Age: 53 ? Order #: [id number] ? Instrument Name: EG-760R- [id number] ? Procedure: ? Upper GI endoscopy Indications: ? Epigastric abdominal pain, Heartburn Providers: ? Lashonda Villa MD, [place] ? Systrom, Mercedes [place], Bouchra Recinos MD: [...] * COLONOSCOPY (07/07/2023 1:39 PM EDT) COLONOSCOPY [facility] Endoscopy Procedure Date: 07/07/2023 1:39 PM ? Patient Name: Loida Roque ? Date of : 1970 ? Age: 53 ? Order #: [id number] ? Instrument Name: EC-[id number]- [id number] ? Procedure: ? Colonoscopy Indications: ? Abdominal pain, Diarrhea Providers: ? Lashonda Villa MD, Porsha ? Mercedes San, Bouchra Ramon Referring MD: ? Medicines: ? Monitored Anesthesia [...] ? was evaluated using the BBPS ? (Mcnary Bowel Preparation Scale) ? with scores of: [...] Procedure Code(s): ? --- Professional --- ? 47310, Colonoscopy, flexible; with ? biopsy, single or multiple CPT copyright 2022 [employer]. All rights reserved. The codes documented in this report are preliminary and upon non destructive testing inspector review may be revised to meet current compliance requirements. Attending Participation: ? I was present and participated during the entire ? procedure, including non-chavis portions. ? Lashonda Villa MD _ Lashonda Villa MD 07/07/2023 3:03:36 PM This report has been signed electronically. Number of Addenda: 0 Note Initiated On: 07/07/2023 1:39 PM [employer] 07/07/2023 1:39 PM EDT Unknown GENERAL SURGICAL ORD ERABLES Performing Organization Address City/[facility] Co de Phone Number [employer] * Campylobacter Antigen (07/07/2023 12:10 PM EDT) Campylobacter Ag Immunoassay Negative for Campylobacter Antigen [facility] Stool 07/07/2023 12:1 0 PM EDT 07/07/2023 12:53 PM EDT Narrative Resulting Agency Comment Spec In Lab Ailyn Knight MD MICROBIOLOGY - GENER AL ORDERABLES Performing Organization Address [facility] Co de Phone Number [facility] [place] [address] * Shiga Toxin Detection (07/07/2023 12:10 PM EDT) Shiga Toxin Assay EIA Negative for Shiga Toxin 1 EIA Negative for Shiga Toxin 2 [facility] Stool 07/07/2023 12:1 0 PM EDT 07/07/2023 12:53 PM EDT Narrative Resulting Agency Comment Spec In Lab Ailyn Knight MD MICROBIOLOGY - GENER AL ORDERABLES Performing Organization Address [facility] [place] [address] * Stool culture (07/07/2023 12:10 PM EDT) Stool Culture No enteric pathogens isolated [facility] Stool 07/07/2023 12:1 0 PM EDT 07/07/2023 12:53 PM EDT Narrative Resulting Agency Comment Spec In Lab Ailyn Knight MD MICROBIOLOGY - GENER AL ORDERABLES Performing Organization Address City/[facility] Co de Phone Number [facility] [place] [address] * Giardia/Cryptosporidium Antigens ([facility]/CGP/APD/NLH) (07/07/2023 12:38 AM EDT) Giardia Screen Negative Negative [facility] Comment:Examination for othe r intestinal parasites requires foreign travel history. Cryptosporidium Screen Negative Negative [facility] Stool 07/07/2023 12:3 8 AM EDT 07/07/2023 7:56 AM EDT Narrative Resulting Agency Comment Spec In Lab Ailyn Knight MD MICROBIOLOGY - GENER AL ORDERABLES Performing Organization Address [facility] Co de Phone Number [facility] [place] [address] * Lipase (07/05/2023 5:44 PM EDT) Lipase 17 0 - 60 unit/L [facility] Blood 07/05/2023 5:44 PM EDT 07/05/2023 6:00 PM EDT Narrative Resulting Agency Comment Spec In Lab Lloyd Keating MD CHEMISTRY ORDERABLES Performing Organization Address City/[facility] Co de Phone Number [facility] [place] [address] * Amylase (07/05/2023 5:44 PM EDT) Amylase 35 28 - 100 unit/L [facility] Blood 07/05/2023 5:44 PM EDT 07/05/2023 6:00 PM EDT Narrative Resulting Agency Comment Spec In Lab Lloyd Keating MD CHEMISTRY ORDERABLES Performing Organization Address City/[facility] [place] [address] * XR Chest One View (07/03/2023 3:18 PM EDT) Only the most recent of2 resultswithin the time period is included. WORKSTATION ID [id number] RAD Anatomical Region Laterality Modality Chest N/A Digital Radiogra phy Impressions 07/03/2023 3:27 PM EDT No pulmonary edema or pleural effusion Thank you for letting us participate in the care of this patient. ??If you are a health care provider and have any questions regarding this report, please contact the number below. ??For patients who have questions please contact the health home care aide that requested 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 ? Narrative [...] patients who have questions please contactthe health home care aide that requested 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 Lino Edmonds MD IMG DX ORDERABLES * Arterial Duplex Leg, Unil (07/03/2023 9:34 AM EDT) VB Text Report Department: Vascular Surgery Lab Patient: [id number] (LOIDA ROQUE) CPT: 30657 Referring Physician: LINO EDMONDS ?? Phone: Indications: [...] anesthetic: 10 cc 1% lidocaine Heparin: Yes 41933 ?? Units Protamine: No ??mg Antibiotics: Ancef [...] exchanged the sheath for a 7 Portuguese curriculum manager steerable sheath over a stiff wire. ??A Glidewire and Kumpe catheter were used to selectively cannulate the superior mesenteric artery. ??Direct angiography of the superior mesenteric artery was performed, confirming the results of the nonselective aortography performed. ??The lesion was predilated with a 4 mm x 40 mm [place] balloon, and then a 6 mm X [...] Limited (06/28/2023 12:22 PM EDT) WORKSTATION ID [id number] RAD Anatomical Region Laterality Modality Abdomen [...] who have questions, please contact the health home care aide that requested 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 ?Sigrid Owens, [facility] Deputy Sheriff Bailiff Electronically Signed Final Report ?? 06/28/2023 02:08 pm Narrative 06/28/2023 2:08 PM EDT Abdominal ? (Signed Final 06/28/2023 02:08 pm) PATIENT INFO: ID #: ? [id number] ?: ??[birth year] (53 yrs)(F) Name: ? LOIDA ?Visit Date: 06/28/2023 12:20 pm ? ROHAN PERFORMED BY: Attending: ?Graciela JOHN, Sigrid Munoz Resident: ? Karo JOHN, Rafaela Performed By: ? Rick STANFORD, ??Deena Referred By: ?AILYN KNIGHT Location: ? [place] SERVICE(S) PROVIDED: UABDLIM - Abdominal Limited Survey Single ? 18321 Organ or Quadrant - [id number] INDICATIONS: RUQ pain, R/o Gall bladder colic, [...] 06/28/2023 02:08 pm) PATIENT INFO: ID #: [id number] : [birth year] (53 yrs)(F) Name: LOIDA Visit Date: 06/28/2023 12:20 pm ROHAN PERFORMED BY: Attending: Sigrid Owens MD Resident: Rafaela Huddleston MD Performed By: Deena Cabrera RDMS Referred By: AILYN KNIGHT Location: [place] SERVICE(S) PROVIDED: UABDLIM - Abdominal Limited Survey Single 76736 Organ or Quadrant - [id number] INDICATIONS: RUQ pain, R/o Gall bladder colic, [...] who have questions, please contact the health home care aide that requested 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 Sigrid Owens, E Deputy Sheriff Bailiff Electronically Signed Final Report 06/28/2023 02:08 pm Ailyn Knight MD IMG US GEN ORDERABLE S * Urinalysis Microscopic Exam (06/26/2023 11:09 AM EDT) RBC UA 0 0 - 4 /HPF [facility] WBC UA 3 0 - 5 /HPF [facility] Squam Epith UA 1 <=4 /HPF [facility] Hyaline Cast UA 1 0 - 2 /LPF [facility] Clean Catch Urine 06/26/2023 11:09 AM EDT 06/26/2023 5:45 PM EDT Narrative Resulting Agency Comment Spec In Lab Ailyn Knight MD URINE ORDERABLES [facility] [place] [address] * (ABNORMAL) Urinalysis with reflex Culture (06/26/2023 11:09 AM EDT) Glucose UA Negative Negative mg/dL [facility] Protein UA Negative Negative mg/dL [facility] Bilirubin UA Negative Negative mg/dL [facility] Comment: Clinical correlation required for positive Urine Bilirubin results as false positive may occur with some drugs and drug related products. If a false positive is suspected a serum total bilirubin should be considered if clinically indicated. Urobilinogen UA Normal Normal mg/dL M [facility] pH UA 6.0 5.0 - 8.0 [facility] Blood UA Negative Negative mg/dL [facility] Ketones UA Negative Negative mg/dL [facility] Nitrite UA Negative Negative [facility] Leukocytes UA Trace(A) Negative [facility] Appearance UA Clear Clear [facility] Spec [place] UA 1.013 1.005 - 1.030 [facility] Color UA Yellow Yellow [facility] Culture Reflexed No [facility] Clean Catch Urine 06/26/2023 11:09 AM EDT 06/26/2023 5:45 PM EDT Narrative Resulting Agency Comment Spec In Lab Ailyn Knight MD URINE ORDERABLES [facility] [place] [address] * ECHO LMTD W CONTRAST W LMTD SPEC DOPP COLOR DOPP (06/22/2023 4:25 PM EDT) Anatomical Region Laterality Modality Cardiac Other 06/22/2023 2:49 PM EDT Narrative 06/22/2023 4:42 PM EDT [address] [place] [address] ? Echocardiogram Report Name: ROHAN, LOIDA ?Study Date: 06/22/2023 02:49 PM ?Patient Location: L4WB 0466 A ??HR: 57 : 1970 ?Height: 162 cm ? Account: [id number] Age: 53 yrs ?Weight: 102 kg Gender: [...] slight decrease in LV systolic function. Procedure Complete-86092. Satisfactory quality. There is normal sinus rhythm. [...] Note Jose Gallegos MD - 06/22/2023 [address] [place] [address] Echocardiogram Report Name: LOIDA ROQUE Study Date: 06/22/2023 02:49 PM Patient Location: [address] HR:57 : 1970 Height: 162 cmAccount: [id number] Age: 53 yrs Weight: 102 kg Gender: [...] a slightdecrease in LV systolic function. Procedure Complete-75741. Satisfactory quality. There is normal sinus rhythm. [...] Text Report Department: Vascular Surgery Lab Patient: [id number] (LOIDA ROQUE) CPT: 30923 Referring Physician: AILYN KNIGHT ?? Phone: Indications: [...] Report [facility] 06/22/2023 2:24 PM EDT Ailyn Knihgt MD VASCULAR ORDERABLES Performing Organization Address City/State/[facility] Co de Phone Number [facility] from Last 3 Months Advance Directives Documents on File Type Date Recorded Patient [place] Professor Expl anation Advance Directives and Antonia godinez Will 02/11/2023 2:32 PM 02/11/23 * Attempt [...] Status decision made by: Patient Care Teams Assembler Clip On Sunglasses Relationship Specialty Start Date End Date Polo Pearce PA Sb [address] [address] PCP - General Internal Medicine 06/09/21
--- OUTSIDE RECORDS SUMMARY | 2023-09-20 18:28 | XMS_ITS | Encounter Summary ---
Author Organization [facility] [place] [address] Care Team Providers Care Lunch Counter Manager Name Role Phone Polo Pearce Primary Care Provider [phone] Encounter Details Date Type Department Care Team (Late st Contact Info) Description 09/20/2023 [place] [phone] Vito Pearce MD [facility] [place] [address] Social History Tobacco Use Types Packs/Day Years Used Date Smoking Tobacco: Never Smokeless Tobacco: Never Alcohol Use Standard Drinks/Week Comments Never 0 (1 standard drink = 0.6 oz pur e alcohol) [facility] Utilities Answer Date Recorded In the past 12 months has [employer], gas, oil, or water [employer] threatened to shut off services in your home? No 08/30/2023 Hunger Vital Sign Answer Date Recorded Within the past 12 months, y ou worried that your food would run out before you got the money to buy more. Never true 08/30/19 Within the past 12 months, t he [...] slept in a residential (including now)? No 06/15/2023 Housing Stability Vital Sign Answer Mitchell e Recorded In the last 12 months, was t here a time when you were not able to pay the mortgage or rent on time? No 08/30/2023 In the past 12 months, how m any times have you moved where you were living? 1 08/30/2023 At any time in the past 12 m [facility], were you homeless or living in a residential (including now)? 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 Presents with dizziness which gets worse when she gets up and walks around as well as wanting to scratch at her heart. Symptoms have been ongoing for 3 days. She denies dyspnea, DEA, weight gain, orthopnea, or PND. Apparently appears quite dry on exam. In sinus bradycardia. BP in the 90s-100s systolic. She has been given 500 cc IVF and has had improvement in BP as well as symptoms. Discharge weight from 09/09 was 101.2 kg. Standing weight is pending in the ED. Pertinent diagnostic findings: Vitals: 50 93% RA 18 102/50 Labs: Troponin 655 (ULN: 60, consistent with priors at their facility) WBC: Hb: 16 (baseline 13) Plt: K: 2.8 BUN: 48 Cr: 2.4 (1.3 at discharge) proBNP: 4763 Imaging: EKG: sinus bradycardia, slight PANTERA in aVR with inferolateral STD (consistent with prior EKGs here) CXR: No pulmonary vascular congestion NM PET 08/17/2023: IMPRESSION Moderate-sized scar in the apical septum and anterior wall. LVEF fails to augment appropriately with vasodilator stress. Globally reduced coronary flow reserve which could be consistent with microvascular dysfunction. TTE 08/29/2023: Interpretation Summary Left ventricle is normal in size. There is low normal global systolic function, with focal hypokinesis in the anteroseptum as ascribed. Right ventricle is not well visualized. No hemodynamically significant valve disease. Compared to prior studies over the past 6 months, there has been stable global LV systolic function, with oscillating regional function of the anterior wall. [facility] 04/2023 Coronary Angiography: Dominance: Right Left Main [...] performed. Conclusions: * Nonobstructive coronary artery disease Assessment/Recommendations: The patient has known microvascular dysfunction and HFpEF. EKG and troponin are within normal limits as compared to baseline for her. No active concern for ACS. She apparently appears dry on exam andhas orthostatic symptoms. The outside provider feels as though she is volume down; CATIE could certainly be from over- diuresis. She symptomatically and objectively appears improved with IVF. I have asked for a standing weight to compare to discharge weight. If this is consistent with volume depletion, her torsemide dose could be halved and a repeat chemistry could be obtained later this week. If her volume status remains unclear, it would not be unreasonable to admit and follow Cr with gentle IVF resuscitation. The above recommendations were based on my discussion with the outside hospital provider. I have not personally interviewed or examined this patient. I advised the provider to call the transfer center back with any changes in the patient condition. Vito Pearce MD 09/20/2023 5:08 PM documented in this encounter Plan of Treatment Upcoming Encounters Date Type Department Care Team (Late st Contact Info) Description 10/08/2023 8:30 AM EDT Tech Visit [place] [phone] Jose Cook 10/08/2023 9:30 AM EDT Office Visit [place] [phone] MD [facility] [place] [address] 10/21/2023 10:30 AM EDT Appointment [place] [address] Mary Reyes APRN [facility] [place] [address] 10/21/2023 11:30 AM EDT Appointment [place] [address] Calvino, Mary M, [facility] [place] [address] 10/21/2023 12:30 PM EDT Appointment [place] [address] Mary Reyes [facility] [place] [address] 10/21/2023 1:30 PM EDT Appointment [place] [address] Mary Reyes, [facility] [place] [address] 10/21/2023 2:30 PM EDT Appointment [place] [address] Mary Reyes, [facility] [place] [address] 10/26/2023 4:00 PM EDT Office Visit Cardiology at [address] [phone] Jaspreet Kinsey MD [facility] [address] 10/28/2023 9:00 AM EDT Office [place] [address] 10/29/2023 10:00 AM EDT Clinical [place] [address] 10/29/2023 10:15 AM EDT Procedure [place] [address] 11/01/2023 5:00 PM EDT Office Visit Gastroenterology at [address] Selene Browning, PhD [facility] [place] [address] 11/22/2023 4:40 PM EDT Office Visit Cardiology at [place] [address] Porsha Mcdaniels MD [facility] [place] [address] 12/13/2023 10:00 AM EDT Clinical [place] [address] Lucero Romero, ALVA [facility] [place] [address] documented as of this encounter Visit Diagnoses Not on filedocumented in this encounter Care Teams Lunch Counter Manager Relationship Specialty Start Date End Date Polo Pearce PA [address] [place] [address] PCP - General Internal Medicine 06/09/21 documented as of this encounter
--- OUTSIDE RECORDS SUMMARY | 2023-09-20 18:29 | XMS_ITS | Encounter Summary ---
Author Organization [facility] Address [facility] [place] [address] Care Team Providers Care Men'S And Boys' Clothing Salesperson Name Role Phone Polo Pearce Primary Care Provider [phone] Encounter Details Date Type Department Care Team (Latest Contact Info) Description 08/25/2023 Travel Social History Tobacco Use Types Packs/Day Years Used Date Smoking Tobacco: Never Smokeless Tobacco: Never Alcohol Use Standard Drinks/Week Comments Never 0 (1 standard drink = 0.6 oz pur e alcohol) [facility] Utilities Answer Date Recorded In the [...] in a assisted (including now)? No 06/15/2023 [facility] Inpatient Questions Answer Date Recorded Does [...] AM EDT Tech [place] [address] Jose Cook 10/08/2023 9:30 AM EDT Office Visit [place] [address] MD [facility] [place] [address] 10/21/2023 10:30 AM EDT Appointment [place] [address] Mary Reyes [facility] [place] [address] 10/21/2023 11:30 AM EDT Appointment [place] [phone] Mary Reyes NUCLEAR WASTE MANAGEMENT ENGINEER [facility] [place] [address] 10/21/2023 12:30 PM EDT Appointment [place] [address] Mary Reyes, [facility] [place] [address] 10/21/2023 1:30 PM EDT Appointment [place] [address] Mary Reyes, [facility] [place] [address] 10/21/2023 2:30 PM EDT Appointment [place] [address] Mary Reyes, [facility] [place] [address] 10/26/2023 4:00 PM EDT Office Visit Cardiology at [address] [phone] Jaspreet Kinsey [place] [address] 10/28/2023 9:00 AM EDT Office [place] [address] 10/29/2023 10:00 AM EDT Clinical [place] [address] 10/29/2023 10:15 AM EDT Procedure [place] [address] 11/01/2023 5:00 PM EDT Office Visit [place] [address] Selene Browning, PhD [facility] [place] [address] 11/22/2023 4:40 PM EDT Office Visit Cardiology at [address] [phone] Porsha Mcdaniels MD [facility] [place] [address] 12/13/2023 10:00 AM EDT Clinical Support [place] [phone] [facility] [place] [place] [address] documented as of this encounter Visit Diagnoses Not on filedocumented in this encounter Care Teams Men'S And Boys' Clothing Salesperson Relationship Specialty Start Date End Date Polo Pearce PA [address] [place] [address] PCP - General Internal Medicine 06/09/21 documented as of this encounter
--- OUTSIDE RECORDS SUMMARY | 2023-09-20 18:29 | XMS_ITS | Encounter Summary ---
Author Organization [facility] [place] [address] Care Team Providers Care Electrician Supervisor Substation Name Role Phone Polo Pearce Primary Care Provider [phone] Encounter Details Date Type Department Care Team (Late st Contact Info) Description 08/28/2023 [place] [phone] Social History Tobacco Use Types Packs/Day Years Used Date Smoking Tobacco: Never Smokeless Tobacco: Never Alcohol Use Standard Drinks/Week Comments Never 0 (1 standard drink = 0.6 oz pur e alcohol) [facility] Utilities Answer Date Recorded In the [...] in a senior care (including now)? No 06/15/2023 Housing Stability Vital [...] time in the past 12 m [facility], were you homeless or living in a senior care (including now)? No 08/30/2023 IPV Inpatient Questions [...] AM EDT Tech [place] [address] Jose Cook 10/08/2023 9:30 AM EDT Office [place] [address] MD [facility] DR VASCULAR SURGERY [place], [place] [address] 10/21/2023 10:30 AM EDT Appointment [place] [phone] Mary Reyes APRN [facility] [place] [address] 10/21/2023 11:30 AM EDT Appointment [place] [address] Mary Reyes, [facility] [place] [address] 10/21/2023 12:30 PM EDT Appointment [place] [address] Mary Reyes, [facility] [place] [address] 10/21/2023 1:30 PM EDT Appointment [place] [address] Mary Reyes, [facility] [place] [address] 10/21/2023 2:30 PM EDT Appointment [place] [address] Mary Reyes, [facility] [place] [address] 10/26/2023 4:00 PM EDT Office Visit Cardiology at [address] [place] [phone] Jaspreet Kinsey MD [facility] [place] [address] 10/28/2023 9:00 AM EDT Office [place] [address] 10/29/2023 10:00 AM EDT Clinical [place] [address] 10/29/2023 10:15 AM EDT Procedure [place] [address] 11/01/2023 5:00 PM EDT Office Visit Gastroenterology at [place] [phone] Selene Browning, PhD [facility] [place] [address] 11/22/2023 4:40 PM EDT Office Visit Cardiology at [place] [phone] Porsha Mcdaniels MD [facility] [place] [address] 12/13/2023 10:00 AM EDT Clinical [place] [address] [facility] [place] [address] documented as of this encounter Procedures Procedure Name Priority Date/Time Associated Diagnosis Comments ECG SCAN Routine 08/28/2023 11:53 AM EDT documented in this encounter Results * Scan Doc: ECG (08/28/2023 11:53 AM EDT) Historical Provider MD FLEMING MGR SCAN EX T ORDR/RSLT documented in this encounter Visit Diagnoses Not on filedocumented in this encounter Care Teams Electrician Supervisor Substation Relationship Specialty Start Date End Date Polo Pearce PA [address] [place] [address] PCP - General Internal Medicine 06/09/21 documented as of this encounter
--- OUTSIDE RECORDS SUMMARY | 2023-09-20 18:29 | XMS_ITS | Encounter Summary ---
Author Organization [facility] [place] [address] Care Team Providers Care Electrical Estimator Name Role Phone Polo Pearce Primary Care Provider [phone] Encounter Details Date Type Department Care Team (Late st Contact Info) Description 08/28/2023 [place] [phone] [place] [address] Social History Tobacco Use Types Packs/Day Years Used Date Smoking Tobacco: Never Smokeless Tobacco: Never Alcohol Use Standard Drinks/Week Comments Never 0 (1 standard drink = 0.6 oz pur e alcohol) [facility] Utilities Answer Date Recorded In the past 12 months has [employer], gas, oil, or water [employer] threatened to shut off services in your [...] place to sleep or slept in a half-way (including now)? No 06/15/2023 DH IPV Inpatient [...] a slight decrease in LV systolic function. [facility] 04/2023 Coronary Angiography: Dominance: Right Left Main [...] AM EDT Tech [place] [address] Jose Cook 10/08/2023 9:30 AM EDT Office Visit [place] [address] MD [facility] [place] [address] 10/21/2023 10:30 AM EDT Appointment Nuclear Medicine at [place] [phone] Mary Reyes [facility] [place] [address] 10/21/2023 11:30 AM EDT Appointment [place] [phone] Mary Reyes [facility] [place] [address] 10/21/2023 12:30 PM EDT Appointment [place] [phone] Mary Reyes [facility] [place] [address] 10/21/2023 1:30 PM EDT Appointment [place] [phone] Mary Reyes [facility] [place] [address] 10/21/2023 2:30 PM EDT Appointment [place] [address] Mary Reyes APRN [facility] [place] [address] 10/26/2023 4:00 PM EDT Office Visit Cardiology at [address] [phone] Jaspreet Kinsey MD [facility] [place] [address] 10/28/2023 9:00 AM EDT Office [place] [address] 10/29/2023 10:00 AM EDT Clinical [place] [address] 10/29/2023 10:15 AM EDT Procedure [place] [address] 11/01/2023 5:00 PM EDT Office Visit [place] [phone] Selene Browning, [facility] [place] [address] 11/22/2023 4:40 PM EDT Office Visit Cardiology at [address] [phone] Porsha Mcdaniels MD [facility] [place] [address] 12/13/2023 10:00 AM EDT Clinical Support [place] [address] Lucero Romero, RD [facility] [place] [address] documented as of this encounter Visit Diagnoses Not on filedocumented in this encounter Care Teams Electrical Estimator Relationship Specialty Start Date End Date Polo Pearce PA [address] [place] [address] PCP - General Internal Medicine 06/09/21 documented as of this encounter
--- OUTSIDE RECORDS SUMMARY | 2023-09-20 18:29 | XMS_ITS | Encounter Summary ---
[place] [address] Care Team Providers Care Water Plant Operator Name Role Phone Polo Pearce Primary Care Provider [phone] Reason for Visit * Auth/Cert (Routine) Specialty Diagnoses / Procedures Referred By Jayant harris Referred To Contact Diagnoses NSTEMI (non-ST elevated myocardial infarction) NSTEMI Procedures [place]ER[place]ENC[place] [address] [facility] Referral ID Status Reason Start Date Expiration Date Visits Re quested Visits Authorized [id number] 1 1 Encounter Details Date Type Department Care Team (Late st Contact Info) Description 08/25/2023 12:55 PM EDT Laboratory Appointment Lab [address] [place] [address] Social History Tobacco Use Types Packs/Day Years Used Date Smoking Tobacco: Never Smokeless Tobacco: Never Alcohol Use Standard Drinks/Week Comments Never 0 (1 standard drink = 0.6 oz pur e alcohol) [facility] Utilities Answer Date Recorded In the [...] slept in a chcf (including now)? No 06/15/2023 IPV Inpatient Questions [...] AM EDT Tech [place] [address] Jose Cook 10/08/2023 9:30 AM EDT Office [place] [address] [facility] [place] [address] 10/21/2023 10:30 AM EDT Appointment [place] [address] Mary Reyes [facility] [place] [address] 10/21/2023 11:30 AM EDT Appointment Nuclear Medicine at [place] [phone] Mary Reyes [facility] [place] [address] 10/21/2023 12:30 PM EDT Appointment Nuclear Medicine at [place] [phone] Mary Reyes [facility] [place] [address] 10/21/2023 1:30 PM EDT Appointment [place] [address] Mary Reyes [facility] [place] [address] 10/21/2023 2:30 PM EDT Appointment [place] [address] Mary Reyes [facility] [place] [address] 10/26/2023 4:00 PM EDT Office Visit Cardiology at [address] [phone] Jaspreet Kinsey MD [facility] [place] [address] 10/28/2023 9:00 AM EDT Office [place] [address] 10/29/2023 10:00 AM EDT Clinical Support [place] [address] 10/29/2023 10:15 AM EDT Procedure [place] [address] 11/01/2023 5:00 PM EDT Office Visit Gastroenterology at [place] [phone] Selene Browning, PhD [facility] [address] 11/22/2023 4:40 PM EDT Office Visit Cardiology at [address] [phone] Porsha Mcdaniels MD [facility] [place] [address] 12/13/2023 10:00 AM EDT Clinical Support [place] [address] Lucero Romero, RD [facility] [place] [address] documented as of this encounter Visit Diagnoses Not on filedocumented in this encounter Care Teams Water Plant Operator Relationship Specialty Start Date End Date Polo Pearce PA [address] [place] [address] PCP - General Internal Medicine 06/09/21 documented as of this encounter
--- OUTSIDE RECORDS SUMMARY | 2023-09-20 18:29 | XMS_ITS | Encounter Summary ---
[place] [address] Care Team Providers Care Corporate Controller Name Role Phone Polo Pearce Primary Care Provider [phone] Reason for Referral * Consultation (Routine) - Authorized Specialty Diagnoses / Procedures Referred By Jayant harris Referred To Contact Cardiology Diagnoses NSTEMI (non-ST elevated myocardial infarction) [place] [address] Cardiac Rehab, [address] [place] [address] Referral ID Status Reason Start Date Expiration Date Visits Requested Visits Authorized [id number] Authorized Consult, Test & Treat Non PCP 09/10/2023 2024 36 36 Reason for Visit * Auth/Cert (Routine) Specialty Diagnoses / Procedures Referred By Jayant harris Referred To Contact Diagnoses NSTEMI (non-ST elevated myocardial infarction) NSTEMI Procedures EMERGENCY MICHEL[place]I [place] [address] [facility] Referral ID Status Reason Start Date Expiration Date Visits Re quested Visits Authorized [id number] 1 1 Encounter Details Date Type Department Care Team (Latest Contact Info) Description 08/28/2023 8:27 PM EDT - 09/10/2023 5:31 PM EDT Hospital Encounter Heart and Vascular Unit Level 3 Wing B at [place] [phone] Kia Angelo MD [facility] [place] [address] [place] [address] Eufemia Copeland MD [facility] [place] [address] Lorna Herr MD [facility] [address] Samantha Broussard MD [facility] [address] Lloyd Keating MD [facility] [place] [address] Paresthesia of hand, bilateral; SVT (supraventricular tachycardia); [...] drink = 0.6 oz pur e alcohol) [facility] Utilities Answer Date Recorded In the past 12 months has [employer], gas, oil, or water [employer] threatened to shut off services in your [...] in a halfway (including now)? No 06/15/2023 Housing Stability Vital Sign Answer Mitchell e Recorded In the last 12 months, was t here a time when you were not able to pay the mortgage or rent on time? No 08/30/2023 In the past 12 months, how m any times have you moved where you were living? 1 08/30/2023 At any time in the past 12 m [facility], were you homeless or living in a halfway (including now)? No 08/30/2023 DH IPV Inpatient [...] Loida Madrigal Patient Age: 53 y.o. Language: Scottish Race: White Ethnicity: Not nor Admit date: [...] please contact your inpatient physician through the [facility] Athlete Marketing Agent . Issues afterhours and on weekends will [...] 09/05/2023 4:25 PM) Result Value WORKSTATION ID [id number] Narrative EXAMINATION: CTA/CT ABDOMEN AND PELVIS W [...] requested 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 Electronically signed by: Lalitha Sanders MD, [facility] ([phone]), at 09/06/2023 9:47 AM TTE 08/29/23 Interpretation Summary Left ventricle is normal [...] treatment for possible ACS, and transfer to [facility] for further management. Prior to transfer, patient [...] Administered Date(s) Administered Moderna Covid-19 Monovalent 12Yr+ (Customer Service Analyst 100mcg) 03/06/2020, 04/03/2020 Discharge Medications: Your Medications [...] weight gain + increasing shortness of breath. [id number] minutes prior to a dose of torsemide). [...] of 8AM-5PM please call the Cardiology Clinic [phone] to speak with a nurse. All other hours please call the Hospital Athlete Marketing Agent [phone] and ask to speak to the cardiovascular hospitalist on-call. Follow up Appointments: Doctor Where Phone # Date Time PCP JOCY Franco [address] [place] [address] Please call to set up a follow up appointment. Cardiology Jaspreet Kinsey MD Cardiology at [place] Arrive at: [facility] [address] [phone] 10/26/2023 4:00 PM General Instructions None Future Appointments and Orders Future Appointments and Orders Future Appointments Provider Department Dept Phone 10/21/2023 10:30 AM [facility] ROOM 1 Nuclear Medicine at [facility] Arrive at: [facility] RAD[facility]OLOGY [phone] Please do not eat or drink anything for at least 6 hours prior to your appointment. 10/21/2023 11:30 AM [facility] ROOM 1 Nuclear Medicine at [facility] Arrive at: [facility] RADIOLOGY [phone] Please do not eat or drink anything for at least 6 hours prior to your appointment. 10/21/2023 12:30 PM [facility] ROOM 1 Nuclear Medicine at [facility] Arrive at: [facility] RADIOLOGY [phone] Please do not eat or drink anything for at least 6 hours prior to your appointment. 10/21/2023 1:30 PM [facility] ROOM 1 Nuclear Medicine at [facility] Arrive at: [facility] RADIOLOGY [phone] Please do not eat or drink anything for at least 6 hours prior to your appointment. 10/21/2023 2:30 PM [facility] ROOM 1 Nuclear Medicine at [facility] Arrive at: [facility] RAD[facility]Y [phone] Please do not eat or drink anything for at least 6 hours prior to your appointment. 10/26/2023 4:00 PM Jaspreet Kinsey MD Cardiology at [place] Arrive at: [facility] [address] [phone] 10/28/2023 9:00 AM [facility] 2 Gastroenterology at [facility] Arrive at: Global Sourcing Manager Area 4T [phone] 10/29/2023 10:00 AM [facility] 2 Gastroenterology at [facility] Arrive at: Global Sourcing Manager Area 4T [phone] 10/29/2023 10:15 AM [facility] 2 Gastroenterology at [facility] Arrive at: Global Sourcing Manager Area 4T [phone] 11/22/2023 4:40 PM Porsha Mcdaniels MD Cardiology at [facility] Arrive at: Global Sourcing Manager Area 4A [phone] 12/13/2023 10:[address] Gastroenterology at [facility] Arrive at: Global Sourcing Manager Area Discharge References/Attachments None Greater than 30 minutes was spent on this discharge including documentation, urtf-wy-jwaj time withthe patient, patient education, order processing specialist, coordination with pharmacy and other patient care. [...] of 8AM-5PM please call the Cardiology Clinic [phone] to speak with a nurse. All other hours please call the Hospital Athlete Marketing Agent [phone] and ask to speak to the cardiovascular hospitalist on-call. Follow up Appointments: Doctor Where Phone # Date Time PCP JOCY Franco [address] [place] [address] Please call to set up a follow up appointment. Cardiology Jaspreet Kinsey MD Cardiology at [place] Arrive at: [facility] [address] [phone] 10/26/2023 4:00 PM documented in this encounter [...] as needed. fluticasone propionate (FLONASE) 50 mcg/actuation [place], Suspension 1 spray by Each Nare route [...] Center Cardiovascular Medicine CV HOSPITALIST 1 - [facility] DAILY PROGRESS NOTE Page [phone] to reach a provider 28/09 Admit Date: [...] hest pain, found to have transferred to [facility] for further management of NSTEMI. Patient found [...] ointment Diet: Daily Healthy Menu Choices/Cardiac diet ([facility]-Diet) DVT Prophylaxis: DOAC Code status: Attempt Cardiopulmonary Resuscitation - Inpatient Disposition: Discharge Location: AM-[facility] Basic Mobility Raw Score: 19 PT: OT: PCP JOCY Franco [phone] Lloyd Keating MD 09/09/2023 * Florencia Ortez [...] Center Cardiovascular Medicine CV HOSPITALIST 1 - [facility] DAILY PROGRESS NOTE Page [phone] to reach a provider 28/09 Admit Date: [...] hest pain, found to have transferred to [facility] for further management of NSTEMI. Patient found [...] ointment Diet: Daily Healthy Menu Choices/Cardiac diet ([facility]-Diet) DVT Prophylaxis: DOAC Code status: Attempt Cardiopulmonary Resuscitation - Inpatient Disposition: Discharge Location: AM-[facility] Basic Mobility Raw Score: 24 PT: OT: PCP JOCY Franco [phone] Lloyd Keating MD 09/08/2023 * Edith Chandler [...] Center Cardiovascular Medicine CV HOSPITALIST 1 - [facility] DAILY PROGRESS NOTE Page [phone] to reach a provider 28/09 Admit Date: [...] hest pain, found to have transferred to [facility] for further management of NSTEMI. Patient found [...] ointment Diet: Daily Healthy Menu Choices/Cardiac diet ([facility]-Diet) DVT Prophylaxis: DOAC Code status: Attempt Cardiopulmonary Resuscitation - Inpatient Disposition: Discharge Location: [facility] Basic Mobility Raw Score: 24 PT: OT: PCP JOCY Franco [phone] Lloyd Keating MD 09/07/2023 * Dona Hanks [...] Center Cardiovascular Medicine CV HOSPITALIST 1 - [facility] DAILY PROGRESS NOTE Page [phone] to reach a provider 28/09 Admit Date: [...] hest pain, found to have transferred to [facility] for further management of NSTEMI. Patient found [...] ointment Diet: Daily Healthy Menu Choices/Cardiac diet ([facility]-Diet) DVT Prophylaxis: DOAC Code status: Attempt Cardiopulmonary Resuscitation - Inpatient Disposition: Discharge Location: AM-PAC Basic Mobility Raw Score: 24 PT: OT: PCP JOCY Franco [phone] Lloyd Keating MD 09/06/2023 * Channing Montanez [...] at OSH with chest pain, transferred to [facility] for further management of NSTEMI. On arrival, [...] Miscellaneous Lab request Result Value Ref Range [facility] Lab Result Request received in lab. Hemogram [...] chest pain, found to have transferred to [facility] for further management of NSTEMI. Patient found [...] ointment Diet: Daily Healthy Menu Choices/Cardiac diet ([facility]-Diet) DVT Prophlaxis: DOAC Code status: Attempt Cardiopulmonary [...] screened for hospital length of stay and senior mortgage underwriter met patient at bedside. Patient states [...] Orders Diet Daily Healthy Menu Choices/Cardiac diet ([facility]-Diet) Frequency: Effective Now Number of Occurrences: Until [...] unless consulted in the interim. LORNA Berrios Car Hiker * Samantha Broussard MD - 09/04/2023 8:35 [...] at OSH with chest pain, transferred to [facility] for further management of NSTEMI. On arrival, [...] found to have elevated NSTEMI, transferred to [facility] for further management of NSTEMI. Patient found [...] ointment Diet: Daily Healthy Menu Choices/Cardiac diet ([facility]-Diet) DVT Prophlaxis: DOAC Code status: Attempt Cardiopulmonary [...] found to have elevated NSTEMI, transferred to [facility] for further management of NSTEMI. Patient found [...] ointment Diet: Daily Healthy Menu Choices/Cardiac diet ([facility]-Diet) DVT Prophlaxis: DOAC Code status: Attempt Cardiopulmonary [...] found to have elevated NSTEMI, transferred to [facility] for further management of NSTEMI. Patient found [...] neurontin Diet: Daily Healthy Menu Choices/Cardiac diet ([facility]-Diet) DVT Prophlaxis: DOAC Code status: Attempt Cardiopulmonary [...] found to have elevated NSTEMI, transferred to [facility] for further management of NSTEMI. Patient found [...] neurontin Diet: Daily Healthy Menu Choices/Cardiac diet ([facility]-Diet) DVT Prophlaxis: DOAC Code status: Attempt Cardiopulmonary [...] 7:25 AM EDT CV HOSPITALIST 1 - [facility] DAILY PROGRESS NOTE Page [phone] to reach a provider 28/09 Admit Date: [...] found to have elevated NSTEMI, transferred to [facility] for further management of NSTEMI. Patient found [...] duloxetine Diet: Daily Healthy Menu Choices/Cardiac diet ([facility]-Diet) DVT Prophlaxis: DOAC Code status: Attempt Cardiopulmonary Resuscitation - Inpatient Disposition: Discharge Planning: AM-PAC Basic Mobility Raw Score: 19 PT: OT: PCP JOCY Franco [phone] * Mary Castaneda RCP - 08/31/2023 5:18 [...] 9:11 PM EDT CV HOSPITALIST 1 - [facility] DAILY PROGRESS NOTE Page [phone] to reach a provider 28/09 Admit Date: [...] found to have elevated NSTEMI, transferred to [facility] for further management of NSTEMI Plan: #Acute [...] duloxetine Diet: Daily Healthy Menu Choices/Cardiac diet ([facility]-Diet) DVT Prophlaxis: DOAC Code status: Attempt Cardiopulmonary Resuscitation - Inpatient Disposition: Discharge Planning: AM-PAC Basic Mobility Raw Score: 19 PT: OT: PCP JOCY Franco [phone] * Neli Alcantar RN - 08/29/2023 3:25 [...] 7:07 AM EDT CV HOSPITALIST 1 - [facility] DAILY PROGRESS NOTE Page [phone] to reach a provider 28/09 Admit Date: [...] found to have elevated NSTEMI, transferred to [facility] for further management of NSTEMI Plan: #Acute [...] duloxetine Diet: Daily Healthy Menu Choices/Cardiac diet ([facility]-Diet) DVT Prophlaxis: heparin gtt Code status: Attempt Cardiopulmonary Resuscitation - Inpatient Disposition: Discharge Planning: AM-PAC Basic Mobility Raw Score: 19 PT: OT: PCP JOCY Franco [phone] documented in this encounter H&P Notes * [...] treatment for possible ACS, and transfer to [facility] for further management. Prior to transfer, patient [...] 3.56) performed by Lashonda Villa MD at [facility] ENDOSCOPY PRO UPPER GI ENDOSCOPY, BIOPSY N/A 07/07/2023 EGD WITH BIOPSY (WRVU 2.39) performed by Lashonda Villa MD at [facility] ENDOSCOPY VS ARTERIOGRAM MESENTERIC VASCULAR SURGERY [...] as needed. 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 Lives in [...] Administered Date(s) Administered Moderna Covid-19 Monovalent 12Yr+ (Customer Service Analyst 100mcg) 03/06/2020, 04/03/2020 Physical Exam: Last Set [...] found to have elevated NSTEMI, transferred to [facility] for further management #NSTEMI, type I vs [...] respiratory supplies, other (see comments) (BiPAP through [employer]) DME Needed at Discharge: N/A Patient is insured through: Primary Insurance: [employer] Pay[place] [employer] [place] / Plan[place] / [...] respiratory supplies, other (see comments) (BiPAP through [employer]) DME Needed at Discharge: No Patient is insured through: Primary Insurance: [place] [employer] / Plan[place] / [...] Pt will be receiving Cardiac rehab at [facility] post discharge. D/c plan pending clinical course; [...] in an outpatient cardiac rehabilitation program at [facility] was discussed. Patient agrees to a referral [...] of Care - Aman Ayala RN - 09/05/2023 1:37 AM EDT Problem: [...] Admitted From: Transfer from another hospital Location: [facility] Reason for Hospitalization: overall not feeling well [...] were you homeless or living in a halfway (including now)?: No In the past 12 months has the electric, gas, oil, or water [employer] threatened to shut off services in your [...] respiratory supplies, other (see comments) (BiPAP through [employer] [facility]) [address] [facility] [facility] [place] [phone] Social & Family Supports: All names listed [...] Specific Information: N/A Health/Prescription Coverage: Primary Insurance: [place] Payor: [employer] [facility] [place] / Plan: [facility] [place] EX[place]ANGE / Product Type: *No Product type* / Secondary Insurance: N/A Prescription Coverage: Yes Preferred Pharmacy: [facility] [address] [place], [place] - [address] [facility] [address] [facility] [address] [facility] - [place], [place] - [address] [facility] [address] [facility] [address] [facility] [address] [place] Status: Patient is a : No Primary Care Provider confirmed: JOCY Franco [phone] Patient/Caregiver Goals of Treatment: home when MR [...] from the original note were not included. [facility] [place] [address] INPATIENT CARDIOLOGY CONSULT NOTE Reason for Consult: Chest pain HPI: Loida Madrigal is a 53 y.o. obese female, history of non-obstructive CAD ([facility] 04/2023) with suspicion for microvascular dysfunction (PET [...] AM EDT Tech Visit Vascular Lab at [place] [phone] Jose Cook 10/08/2023 9:30 AM EDT Office Visit Vascular Surgery at [place] [phone] MD [facility] [place] [address] 10/21/2023 10:30 AM EDT Appointment Nuclear Medicine at [address] [facility] [place] [address] 10/21/2023 11:30 AM EDT Appointment Nuclear Medicine at [place] [phone] [facility] [place] [address] 10/21/2023 12:30 PM EDT Appointment Nuclear Medicine at [place] [phone] [facility] [place] [address] 10/21/2023 1:30 PM EDT Appointment [place] [phone] [facility] [place] [address] 10/21/2023 2:30 PM EDT Appointment [place] [phone] Mary Reyes APRN [facility] [place] [address] 10/26/2023 4:00 PM EDT Office Visit Cardiology at [address] [phone] Jaspreet Kinsey MD [facility] [place] [address] 10/28/2023 9:00 AM EDT Office [place] [address] 10/29/2023 10:00 AM EDT Clinical [place] [address] 10/29/2023 10:15 AM EDT Procedure [place] [address] 11/01/2023 5:00 PM EDT Office Visit Gastroenterology at [place] [phone] Selene Browning, PhD [facility] [place] [address] 11/22/2023 4:40 PM EDT Office Visit Cardiology at [address] [phone] Porsha Mcdaniels MD [facility] [address] [place] [address] 12/13/2023 10:00 AM EDT Clinical Support [place] [phone] [facility] [place] [address] Scheduled Orders Name Type Priority Associated Diagnoses [...] 4:17 AM EDT) Neutrophils % 54.4 % [facility] Neutr Abs (ANC) 4.17 1.70 - 6.10 x10(3)/[facility] Lymphocytes % 33.2 % [facility] Lymphocytes Abs 2.5 0.9 - 3.2 x10(3)/[facility]OR[facility]ORY Monocytes % 8.4 % [facility] Monocyte Abs 0.6 0.3 - 0.9 x10(3)/[facility]OR[facility]ORY Eosinophils % 3.0 % [facility] Eosinophils Abs 0.2 0.0 - 0.4 x10(3)/[facility] Basophils % 0.7 % [facility] Basophils Abs 0.0 0.0 - 0.1 x10(3)/[facility]OR[facility]ORY Immature Gran % 0.30 % [facility] Comment: Immature granulocytes(IG's)percentage and absolute count will include metamyelocytes, myelocytes, and promyelocytes. Blood smears from CBCs yielding IG's will be scanned manually for concordance. If this scan disagrees with the automated IG or if promyelocytes are noted, a manual differential will be performed. Shonda Gran Abs 0.02 0.00 - 0.04 x10(3)/[facility] Blood 09/10/2023 4:17 AM EDT 09/10/2023 4:29 AM EDT Narrative Resulting Agency Comment Spec In Lab Eufemia Copeland MD HEMATOLOGY ORDERAB LES [facility] [place] [address] * (ABNORMAL) Hemogram (09/10/2023 4:17 AM EDT) WBC 7.6 4.0 - 9.5 x10(3)/[facility] LAB[facility] RBC 4.15 4.00 - 5.21 x10(6)/[facility] Hemoglobin 13.0 11.7 - 15.5 g/dL [facility] Hematocrit 39.2 35.7 - 45.8 % [facility] MCV 94.5(H) 82.6 - 94.4 [facility] MCH 31.3 27.1 - 32.0 pg [facility] MCHC 33.2 31.7 - 35.0 g/dL [facility] Platelets 267 145 - 357 x10(3)/[facility] LABOR[facility]ORY RDWSD 44.6 37.0 - 46.0 [facility] RDWCV 13.1 11.5 - 14.1 % [facility] MPV 10.3 7.6 - 12.9 [facility] nRBC % Auto 0.0 % [facility] nRBC Abs Auto 0.000 0.000 - 0.000 x10(3)/[facility] Blood 09/10/2023 4:17 AM EDT 09/10/2023 4:29 AM EDT Narrative Resulting Agency Comment Spec In Lab Eufemia Copeland MD HEMATOLOGY ORDERAB LES [facility] [place] [address] * (ABNORMAL) Basic Metabolic Panel (non-fasting) (09/10/2023 4:17 AM EDT) Glucose Lvl 92 65 - 199 mg/dL [facility] Comment:Diabetes: >=200 mg/d L plus symptoms BUN 27(H) 8 - 18 mg/dL [facility] Creatinine 1.39(H) 0.70 - 1.20 mg/dL [facility] Sodium 138 135 - 145 mmol/L [facility] Potassium 4.1 3.5 - 5.0 mmol/L [facility] Comment: Please note: ??Patients with WBC >100,000 may have falsely elevated Potassium levels. ??For accurate Potassium quantification in these patients send serum separator tube (gold top) for subsequent determinations. ??Contact the Clinical Chemistry Laboratory if there are any questions. Chloride 103 98 - 107 mmol/L [facility] CO2 24 22 - 31 mmol/L [facility] Anion Gap 11 5 - 15 mmol/L [facility] Calcium 9.4 8.5 - 10.5 mg/dL [facility] Estimated GFR 45(L) >=60 mL/min/1. 73 m?? [facility] Comment: This patient's estimated GFR [...] MD CHEMISTRY ORDERABL ES Performing Organization Address City/[facility]/ZIP Co de Phone Number [facility] [place] [address] * Magnesium (09/10/2023 4:17 AM EDT) Magnesium 0.99 0.69 - 1.07 mmol/L [facility] Blood 09/10/2023 4:17 AM EDT 09/10/2023 4:29 AM EDT Narrative Resulting Agency Comment Spec In Lab Eufemia Copeland MD CHEMISTRY ORDERABL ES Performing Organization Address City/[facility] Co de Phone Number [facility] [place] [address] * Differential, Automated (09/09/2023 5:10 AM EDT) Neutrophils % 54.1 % [facility] Neutr Abs (ANC) 4.00 1.70 - 6.10 x10(3)/[facility] Lymphocytes % 31.7 % [facility] Lymphocytes Abs 2.3 0.9 - 3.2 x10(3)/[facility] Monocytes % 9.5 % [facility] Monocyte Abs 0.7 0.3 - 0.9 x10(3)/[facility] Eosinophils % 3.5 % [facility] Eosinophils Abs 0.3 0.0 - 0.4 x10(3)/[facility] Basophils % 0.8 % [facility] Basophils Abs 0.1 0.0 - 0.1 x10(3)/[facility] LAB[facility]ORY Immature Gran % 0.40 % [facility] Comment: Immature granulocytes(IG's)percentage and absolute count will include metamyelocytes, myelocytes, and promyelocytes. Blood smears from CBCs yielding IG's will be scanned manually for concordance. If this scan disagrees with the automated IG or if promyelocytes are noted, a manual differential will be performed. Shonda Gran Abs 0.03 0.00 - 0.04 x10(3)/[facility] LABOR[facility]ORY Blood 09/09/2023 5:10 AM EDT 09/09/2023 5:19 AM EDT Narrative Resulting Agency Comment Spec In Lab Eufemia Copeland MD HEMATOLOGY ORDERAB LES [facility] [place] [address] * (ABNORMAL) Hemogram (09/09/2023 5:10 AM EDT) WBC 7.4 4.0 - 9.5 x10(3)/[facility] LABOR[facility]ORY RBC 4.09 4.00 - 5.21 x10(6)/[facility] Hemoglobin 13.0 11.7 - 15.5 g/dL [facility] Hematocrit 39.2 35.7 - 45.8 % [facility] MCV 95.8(H) 82.6 - 94.4 fL [facility] MCH 31.8 27.1 - 32.0 pg [facility] MCHC 33.2 31.7 - 35.0 g/dL [facility] Platelets 267 145 - 357 x10(3)/[facility] LABORATORY RDWSD 45.3 37.0 - 46.0 fL [facility] RDWCV 12.9 11.5 - 14.1 % [facility] MPV 9.9 7.6 - 12.9 fL [facility] nRBC % Auto 0.0 % [facility] nRBC Abs Auto 0.000 0.000 - 0.000 x10(3)/mcL [facility] Blood 09/09/2023 5:10 AM EDT 09/09/2023 5:19 AM EDT Narrative Resulting Agency Comment Spec In Lab Eufemia Copeland MD HEMATOLOGY ORDERAB LES [facility] [place] [address] * (ABNORMAL) Basic Metabolic Panel (non-fasting) (09/09/2023 5:10 AM EDT) Glucose Lvl 97 65 - 199 mg/dL [facility] Comment:Diabetes: >=200 mg/d L plus symptoms BUN 22(H) 8 - 18 mg/dL [facility] Creatinine 1.36(H) 0.70 - 1.20 mg/dL [facility] Sodium 137 135 - 145 mmol/L [facility] Potassium 3.6 3.5 - 5.0 mmol/L [facility] Comment: Please note: ??Patients with WBC >100,000 may have falsely elevated Potassium levels. ??For accurate Potassium quantification in these patients send serum separator tube (gold top) for subsequent determinations. ??Contact the Clinical Chemistry Laboratory if there are any questions. Chloride 100 98 - 107 mmol/L [facility] CO2 25 22 - 31 mmol/L [facility] Anion Gap 12 5 - 15 mmol/L [facility] Calcium 9.5 8.5 - 10.5 mg/dL [facility] Estimated GFR 46(L) >=60 mL/min/1. 73 m?? [facility] Comment: This patient's estimated GFR [...] CHEMISTRY ORDERABL ES Performing Organization Address [facility] Co de Phone Number [facility] [place] [address] * Magnesium (09/09/2023 5:10 AM EDT) Pathologist [facility] Magnesium 0.97 0.69 - 1.07 mmol/L [facility] Blood 09/09/2023 5:10 AM EDT 09/09/2023 5:19 AM EDT Narrative Resulting Agency Comment Spec In Lab Eufemia Copeland MD CHEMISTRY ORDERABL ES Performing Organization Address [facility] de Phone Number [facility] [place] [address] * EKG 12 Lead (09/08/2023 4:01 AM EDT) Ventricular rate 59 BPM MUSE SYSTEM Atrial Rate 59 BPM MUSE SYSTEM P-R Interval 192 ms MUSE SYSTEM QRS Duration 92 ms MUSE SYSTEM Q-T Interval 452 ms MUSE SYSTEM QTC Calculated (Bezet) 447 ms MUSE SYSTEM Calculated P [place] 38 degrees MUSE SYSTEM Calculated R [place] 51 degrees MUSE SYSTEM Calculated T [place] -18 degrees MUSE SYSTEM INTERPRETATION Sinus bradycardia Diffuse ST depression, consider subendocardial injury Abnormal ECG When compared with ECG of 03-SEP-2023 06:02, Premature atrial complexes are no longer Present QT has shortened I personally reviewed the tracing and edited the fellows interpretation Confirmed by fellow Vito Pearce ([id number]) on 09/08/2023 7:40:32 AM Confirmed by MD Angelo Danette ([id number]) on 09/08/2023 2:12:57 PM MUSE SYSTEM 09/08/2023 4:01 AM EDT 09/08/2023 2:12 PM EDT Eufemia Copeland MD ECG ORDERABLES MUSE SYSTEM * Differential, Automated (09/08/2023 2:22 AM EDT) Neutrophils % 55.2 % [facility] Neutr Abs (ANC) 4.74 1.70 - 6.10 x10(3)/[facility] Lymphocytes % 30.8 % [facility] Lymphocytes Abs 2.6 0.9 - 3.2 x10(3)/[facility] Monocytes % 9.5 % [facility] Monocyte Abs 0.8 0.3 - 0.9 x10(3)/[facility] Eosinophils % 3.6 % [facility] Eosinophils Abs 0.3 0.0 - 0.4 x10(3)/[facility] Basophils % 0.5 % [facility] Basophils Abs 0.0 0.0 - 0.1 x10(3)/[facility] Immature Gran % 0.40 % [facility] Comment: Immature granulocytes(IG's)percentage and absolute count will include metamyelocytes, myelocytes, and promyelocytes. Blood smears from CBCs yielding IG's will be scanned manually for concordance. If this scan disagrees with the automated IG or if promyelocytes are noted, a manual differential will be performed. Shonda Gran Abs 0.03 0.00 - 0.04 x10(3)/[facility] Blood 09/08/2023 2:22 AM EDT 09/08/2023 2:37 AM EDT Narrative Resulting Agency Comment Spec In Lab Eufemia Copeland MD HEMATOLOGY ORDERAB LES [facility] [place] [address] * (ABNORMAL) Hemogram (09/08/2023 2:22 AM EDT) Pathologist [facility] WBC 8.6 4.0 - 9.5 x10(3)/[facility] RBC 3.98(L) 4.00 - 5.21 x10(6)/[facility] Hemoglobin 12.8 11.7 - 15.5 g/dL [facility] Hematocrit 37.4 35.7 - 45.8 % [facility] MCV 94.0 82.6 - 94.4 fL [facility] MCH 32.2(H) 27.1 - 32.0 pg [facility] MCHC 34.2 31.7 - 35.0 g/dL [facility] Platelets 274 145 - 357 x10(3)/[facility] RDWSD 44.5 37.0 - 46.0 [facility] RDWCV 12.9 11.5 - 14.1 % [facility] MPV 10.4 7.6 - 12.9 [facility] nRBC % Auto 0.0 % [facility] nRBC Abs Auto 0.000 0.000 - 0.000 x10(3)/[facility] Blood 09/08/2023 2:22 AM EDT 09/08/2023 2:37 AM EDT Narrative Resulting Agency Comment Spec In Lab Eufemia Copeland MD HEMATOLOGY ORDERAB LES [facility] [place] [address] * (ABNORMAL) Basic Metabolic Panel (non-fasting) (09/08/2023 2:22 AM EDT) [facility] Glucose Lvl 98 65 - 199 mg/dL [facility] Comment:Diabetes: >=200 mg/d L plus symptoms BUN 19(H) 8 - 18 mg/dL [facility] Creatinine 1.41(H) 0.70 - 1.20 mg/dL [facility] Sodium 139 135 - 145 mmol/L [facility] Potassium 3.6 3.5 - 5.0 mmol/L [facility] Comment: Please note: ??Patients with WBC >100,000 may have falsely elevated Potassium levels. ??For accurate Potassium quantification in these patients send serum separator tube (gold top) for subsequent determinations. ??Contact the Clinical Chemistry Laboratory if there are any questions. Chloride 103 98 - 107 mmol/L [facility] CO2 24 22 - 31 mmol/L [facility] Anion Gap 12 5 - 15 mmol/L [facility] Calcium 9.1 8.5 - 10.5 mg/dL [facility] Estimated GFR 44(L) >=60 mL/min/1. 73 m?? [facility] Comment: This patient's estimated GFR [...] Lab Eufemia Copeland MD CHEMISTRY ORDERABL ES [facility] [place] [address] * Magnesium (09/08/2023 2:22 AM EDT) Magnesium 0.91 0.69 - 1.07 mmol/L [facility] Blood 09/08/2023 2:22 AM EDT 09/08/2023 2:37 AM EDT Narrative Resulting Agency Comment Spec In Lab Eufemia Copeland MD CHEMISTRY ORDERABL ES [facility] [place] [address] * Differential, Automated (09/07/2023 2:56 AM EDT) Neutrophils % 52.3 % [facility] Neutr Abs (ANC) 3.74 1.70 - 6.10 x10(3)/[facility] Lymphocytes % 33.8 % [facility] Lymphocytes Abs 2.4 0.9 - 3.2 x10(3)/[facility] Monocytes % 9.4 % [facility] Monocyte Abs 0.7 0.3 - 0.9 x10(3)/[facility] Eosinophils % 3.6 % [facility] Eosinophils Abs 0.3 0.0 - 0.4 x10(3)/[facility] Basophils % 0.6 % [facility] Basophils Abs 0.0 0.0 - 0.1 x10(3)/[facility] Immature Gran % 0.30 % [facility] Comment: Immature granulocytes(IG's)percentage and absolute count will include metamyelocytes, myelocytes, and promyelocytes. Blood smears from CBCs yielding IG's will be scanned manually for concordance. If this scan disagrees with the automated IG or if promyelocytes are noted, a manual differential will be performed. Shonda Gran Abs 0.02 0.00 - 0.04 x10(3)/[facility] Blood 09/07/2023 2:56 AM EDT 09/07/2023 3:31 AM EDT Narrative Resulting Agency Comment Spec In Lab Eufemia Copeland MD HEMATOLOGY ORDERAB LES [facility] [place] [address] * (ABNORMAL) Hemogram (09/07/2023 2:56 AM EDT) [facility] WBC 7.2 4.0 - 9.5 x10(3)/[facility] RBC 4.16 4.00 - 5.21 x10(6)/[facility] Hemoglobin 13.1 11.7 - 15.5 g/dL [facility] Hematocrit 39.7 35.7 - 45.8 % [facility] MCV 95.4(H) 82.6 - 94.4 [facility] MCH 31.5 27.1 - 32.0 pg [facility] MCHC 33.0 31.7 - 35.0 g/dL [facility] Platelets 277 145 - 357 x10(3)/[facility] RDWSD 45.4 37.0 - 46.0 [facility] RDWCV 12.9 11.5 - 14.1 % [facility] MPV 10.6 7.6 - 12.9 [facility] nRBC % Auto 0.0 % [facility] nRBC Abs Auto 0.000 0.000 - 0.000 x10(3)/[facility] Blood 09/07/2023 2:56 AM EDT 09/07/2023 3:31 AM EDT Narrative Resulting Agency Comment Spec In Lab Eufemia Copeland MD HEMATOLOGY ORDERAB LES [facility] [place] [address] * (ABNORMAL) Basic Metabolic Panel (non-fasting) (09/07/2023 2:56 AM EDT) [facility] Glucose Lvl 97 65 - 199 mg/dL [facility] Comment:Diabetes: >=200 mg/d L plus symptoms BUN 16 8 - 18 mg/dL [facility] Creatinine 1.19 0.70 - 1.20 mg/dL [facility] Sodium 137 135 - 145 mmol/L [facility] Potassium 3.9 3.5 - 5.0 mmol/L [facility] Comment: Please note: ??Patients with WBC >100,000 may have falsely elevated Potassium levels. ??For accurate Potassium quantification in these patients send serum separator tube (gold top) for subsequent determinations. ??Contact the Clinical Chemistry Laboratory if there are any questions. Chloride 102 98 - 107 mmol/L [facility] CO2 25 22 - 31 mmol/L [facility] Anion Gap 10 5 - 15 mmol/L [facility] Calcium 9.4 8.5 - 10.5 mg/dL [facility] Estimated GFR 54(L) >=60 mL/min/1. 73 m?? [facility] Comment: This patient's estimated GFR [...] Lab Eufemia Copeland MD CHEMISTRY ORDERABL ES [facility] [place] [address] * Magnesium (09/07/2023 2:56 AM EDT) Magnesium 0.96 0.69 - 1.07 mmol/L [facility] Blood 09/07/2023 2:56 AM EDT 09/07/2023 3:31 AM EDT Narrative Resulting Agency Comment Spec In Lab Eufemia Copeland MD CHEMISTRY ORDERABL ES [facility] [place] [address] * Differential, Automated (09/06/2023 2:44 AM EDT) Neutrophils % 53.7 % [facility] Neutr Abs (ANC) 4.01 1.70 - 6.10 x10(3)/[facility] Lymphocytes % 32.0 % [facility] Lymphocytes Abs 2.4 0.9 - 3.2 x10(3)/[facility] Monocytes % 10.0 % [facility] Monocyte Abs 0.8 0.3 - 0.9 x10(3)/[facility] Eosinophils % 3.2 % [facility] Eosinophils Abs 0.2 0.0 - 0.4 x10(3)/[facility] Basophils % 0.7 % [facility] Basophils Abs 0.0 0.0 - 0.1 x10(3)/[facility] Immature Gran % 0.40 % [facility] Comment: Immature granulocytes(IG's)percentage and absolute count will include metamyelocytes, myelocytes, and promyelocytes. Blood smears from CBCs yielding IG's will be scanned manually for concordance. If this scan disagrees with the automated IG or if promyelocytes are noted, a manual differential will be performed. Shonda Gran Abs 0.03 0.00 - 0.04 x10(3)/[facility] Blood 09/06/2023 2:44 AM EDT 09/06/2023 2:58 AM EDT Narrative Resulting Agency Comment Spec In Lab Eufemia Copeland MD HEMATOLOGY ORDERAB LES [facility] [place] [address] * Hemogram (09/06/2023 2:44 AM EDT) WBC 7.5 4.0 - 9.5 x10(3)/[facility] RBC 4.26 4.00 - 5.21 x10(6)/[facility] Hemoglobin 13.6 11.7 - 15.5 g/dL [facility] Hematocrit 40.2 35.7 - 45.8 % [facility] MCV 94.4 82.6 - 94.4 [facility] MCH 31.9 27.1 - 32.0 pg [facility] MCHC 33.8 31.7 - 35.0 g/dL [facility] Platelets 274 145 - 357 x10(3)/[facility] RDWSD 44.3 37.0 - 46.0 [facility] RDWCV 12.9 11.5 - 14.1 % [facility] MPV 10.2 7.6 - 12.9 [facility] nRBC % Auto 0.0 % [facility] nRBC Abs Auto 0.000 0.000 - 0.000 x10(3)/[facility] Blood 09/06/2023 2:44 AM EDT 09/06/2023 2:58 AM EDT Narrative Resulting Agency Comment Spec In Lab Eufemia Copeland MD HEMATOLOGY ORDERAB LES [facility] [place] [address] * Basic Metabolic Panel (non-fasting) (09/06/2023 2:44 AM EDT) Glucose Lvl 100 65 - 199 mg/dL [facility] Comment:Diabetes: >=200 mg/d L plus symptoms BUN 16 8 - 18 mg/dL [facility] Creatinine 1.05 0.70 - 1.20 mg/dL [facility] Sodium 137 135 - 145 mmol/L [facility] Potassium 3.6 3.5 - 5.0 mmol/L [facility] Comment: Please note: ??Patients with WBC >100,000 may have falsely elevated Potassium levels. ??For accurate Potassium quantification in these patients send serum separator tube (gold top) for subsequent determinations. ??Contact the Clinical Chemistry Laboratory if there are any questions. Chloride 102 98 - 107 mmol/L [facility] CO2 25 22 - 31 mmol/L [facility] Anion Gap 10 5 - 15 mmol/L [facility] Calcium 9.5 8.5 - 10.5 mg/dL [facility] Estimated GFR 63 >=60 mL/min/1. 73 m?? [facility] Comment: This patient's estimated GFR [...] Lab Eufemia Copeland MD CHEMISTRY ORDERABL ES [facility] [place] [address] * Magnesium (09/06/2023 2:44 AM EDT) Magnesium 0.95 0.69 - 1.07 mmol/L [facility] Blood 09/06/2023 2:44 AM EDT 09/06/2023 2:58 AM EDT Narrative Resulting Agency Comment Spec In Lab Eufemia Copeland MD CHEMISTRY ORDERABL ES [facility] [place] [address] * CT Abdomen & Pelvis w Contrast (09/05/2023 4:25 PM EDT) [facility] [employer] WORKSTATION ID [id number] [facility] Anatomical Region Laterality Modality Abdomen, Pelvis Computed [...] rn that requested 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 ? Electronically signed by: Lalitha Sanders MD, [facility] ([phone]), at 09/06/2023 9:47 AM Narrative 09/06/2023 9:47 [...] care rn that requested 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 Samantha Broussard MD IMG CT ORDERABLES * Differential, Automated (09/05/2023 1:58 AM EDT) Neutrophils % 54.5 % [facility] Neutr Abs (ANC) 4.32 1.70 - 6.10 x10(3)/[facility] Lymphocytes % 30.5 % [facility] Lymphocytes Abs 2.4 0.9 - 3.2 x10(3)/[facility] Monocytes % 11.4 % [facility] Monocyte Abs 0.9 0.3 - 0.9 x10(3)/[facility] Eosinophils % 2.8 % [facility] Eosinophils Abs 0.2 0.0 - 0.4 x10(3)/[facility] Basophils % 0.5 % [facility] Basophils Abs 0.0 0.0 - 0.1 x10(3)/[facility] Immature Gran % 0.30 % [facility] Comment: Immature granulocytes(IG's)percentage and absolute count will include metamyelocytes, myelocytes, and promyelocytes. Blood smears from CBCs yielding IG's will be scanned manually for concordance. If this scan disagrees with the automated IG or if promyelocytes are noted, a manual differential will be performed. Shonda Gran Abs 0.02 0.00 - 0.04 x10(3)/[facility] Blood 09/05/2023 1:58 AM EDT 09/05/2023 2:13 AM EDT Narrative Resulting Agency Comment Spec In Lab Eufemia Copeland MD HEMATOLOGY ORDERAB LES [facility] [place] [address] * Hemogram (09/05/2023 1:58 AM EDT) WBC 7.9 4.0 - 9.5 x10(3)/[facility] RBC 4.38 4.00 - 5.21 x10(6)/[facility] Hemoglobin 13.7 11.7 - 15.5 g/dL [facility] Hematocrit 40.5 35.7 - 45.8 % [facility] MCV 92.5 82.6 - 94.4 fL [facility] MCH 31.3 27.1 - 32.0 pg [facility] MCHC 33.8 31.7 - 35.0 g/dL [facility] Platelets 282 145 - 357 x10(3)/[facility] RDWSD 44.0 37.0 - 46.0 fL [facility] RDWCV 13.0 11.5 - 14.1 % [facility] MPV 10.4 7.6 - 12.9 fL [facility] nRBC % Auto 0.0 % [facility] nRBC Abs Auto 0.000 0.000 - 0.000 x10(3)/[facility] Blood 09/05/2023 1:58 AM EDT 09/05/2023 2:13 AM EDT Narrative Resulting Agency Comment Spec In Lab Eufemia Copeland MD HEMATOLOGY ORDERAB LES [facility] [place] [address] * (ABNORMAL) Basic Metabolic Panel (non-fasting) (09/05/2023 1:58 AM EDT) Glucose Lvl 103 65 - 199 mg/dL [facility] Comment:Diabetes: >=200 mg/d L plus symptoms BUN 24(H) 8 - 18 mg/dL [facility] Creatinine 1.10 0.70 - 1.20 mg/dL [facility] Sodium 136 135 - 145 mmol/L [facility] Potassium 3.6 3.5 - 5.0 mmol/L [facility] Comment: Please note: ??Patients with WBC >100,000 may have falsely elevated Potassium levels. ??For accurate Potassium quantification in these patients send serum separator tube (gold top) for subsequent determinations. ??Contact the Clinical Chemistry Laboratory if there are any questions. Chloride 99 98 - 107 mmol/L [facility] CO2 25 22 - 31 mmol/L [facility] Anion Gap 12 5 - 15 mmol/L [facility] Calcium 9.5 8.5 - 10.5 mg/dL [facility] Estimated GFR 60 >=60 mL/min/1. 73 m?? [facility] Comment: This patient's estimated GFR [...] MD CHEMISTRY ORDERABL ES Performing Organization Address City/[facility]/ZIP Co de Phone Number [facility] [place] [address] * Magnesium (09/05/2023 1:58 AM EDT) Pathologist [facility] Magnesium 1.02 0.69 - 1.07 mmol/L [facility] Blood 09/05/2023 1:58 AM EDT 09/05/2023 2:13 AM EDT Narrative Resulting Agency Comment Spec In Lab Eufemia Copeland MD CHEMISTRY ORDERABL ES Performing Organization Address City/[facility]/ZIP Co de Phone Number [facility] [place] [address] * Miscellaneous Lab request (09/05/2023 1:58 AM EDT) Pathologist [facility] Misc Lab Result Request received in lab. [facility] Blood 09/05/2023 1:58 AM EDT 09/05/2023 2:14 AM EDT Narrative Resulting Agency Comment Spec In Lab Samantha Broussard MD HEMATOLOGY ORDERABLE S Performing Organization Address [facility]/ZIP Co de Phone Number [facility] [place] [address] * IgG 4 (09/05/2023 1:58 AM EDT) [facility] IgG 4 47.7 3.9 - 86.4 mg/dL [facility] Blood 09/05/2023 1:58 AM EDT 09/05/2023 2:13 AM EDT Narrative Resulting Agency Comment Spec In Lab Samantha Broussard MD IMMUNOLOGY ORDERABLE S Performing Organization Address City/[facility] Co de Phone Number [facility] [place] [address] * (ABNORMAL) Basic Metabolic Panel (non-fasting) (09/04/2023 2:11 PM EDT) [facility] Glucose Lvl 104 65 - 199 mg/dL [facility] [facility] Comment:Diabetes: >=200 mg/d L plus symptoms BUN 24(H) 8 - 18 mg/dL [facility] Creatinine 1.34(H) 0.70 - 1.20 mg/dL [facility] Sodium 136 135 - 145 mmol/L [facility] Potassium 3.7 3.5 - 5.0 mmol/L [facility] Comment: Please note: ??Patients with WBC >100,000 may have falsely elevated Potassium levels. ??For accurate Potassium quantification in these patients send serum separator tube (gold top) for subsequent determinations. ??Contact the Clinical Chemistry Laboratory if there are any questions. Chloride 96(L) 98 - 107 mmol/L [facility] CO2 25 22 - 31 mmol/L [facility] Anion Gap 15 5 - 15 mmol/L [facility] Calcium 9.6 8.5 - 10.5 mg/dL [facility] Estimated GFR 47(L) >=60 mL/min/1. 73 m?? [facility] Comment: This patient's estimated GFR [...] Mcmanus MD CHEMISTRY ORDERABLES Performing Organization Address [facility] Co de Phone Number [facility] [place] [address] * (ABNORMAL) Potassium (09/04/2023 9:13 AM EDT) [facility] Signature Potassium 3.2(L) 3.5 - 5.0 mmol/L [facility] Comment: Please note: ??Patients with [...] Broussard MD CHEMISTRY ORDERABLES Performing Organization Address [facility]/ZIP Co de Phone Number [facility] [place] [address] * (ABNORMAL) Potassium (09/04/2023 4:25 AM EDT) Potassium 2.9(Criti edy) 3.5 - 5.0 mmol/L [facility] Comment: Called by: staci, Read [...] In Lab Lorna Herr MD CHEMISTRY ORDERABLES [facility] [place] [address] * Differential, Automated (09/04/2023 3:03 AM EDT) Pathologist [facility] Neutrophils % 59.0 % [facility] Neutr Abs (ANC) 4.85 1.70 - 6.10 x10(3)/[facility] Lymphocytes % 26.3 % [facility] Lymphocytes Abs 2.2 0.9 - 3.2 x10(3)/[facility] Monocytes % 10.4 % [facility] Monocyte Abs 0.8 0.3 - 0.9 x10(3)/[facility] Eosinophils % 3.4 % [facility] Eosinophils Abs 0.3 0.0 - 0.4 x10(3)/[facility] Basophils % 0.5 % [facility] Basophils Abs 0.0 0.0 - 0.1 x10(3)/[facility] Immature Gran % 0.40 % [facility] Comment: Immature granulocytes(IG's)percentage and absolute count will include metamyelocytes, myelocytes, and promyelocytes. Blood smears from CBCs yielding IG's will be scanned manually for concordance. If this scan disagrees with the automated IG or if promyelocytes are noted, a manual differential will be performed. Shonda Gran Abs 0.03 0.00 - 0.04 x10(3)/[facility] Blood 09/04/2023 3:03 AM EDT 09/04/2023 3:21 AM EDT Narrative Resulting Agency Comment Spec In Lab Eufemia Copeland MD HEMATOLOGY ORDERAB LES [facility] [place] [address] * (ABNORMAL) Hemogram (09/04/2023 3:03 AM EDT) WBC 8.2 4.0 - 9.5 x10(3)/[facility] RBC 4.55 4.00 - 5.21 x10(6)/[facility] Hemoglobin 14.8 11.7 - 15.5 g/dL [facility] Hematocrit 41.8 35.7 - 45.8 % [facility] MCV 91.9 82.6 - 94.4 [facility] MCH 32.5(H) 27.1 - 32.0 pg [facility] MCHC 35.4(H) 31.7 - 35.0 g/dL [facility] Platelets 306 145 - 357 x10(3)/[facility] RDWSD 42.8 37.0 - 46.0 [facility] RDWCV 12.8 11.5 - 14.1 % [facility] MPV 10.2 7.6 - 12.9 [facility] nRBC % Auto 0.0 % [facility] nRBC Abs Auto 0.000 0.000 - 0.000 x10(3)/[facility] Blood 09/04/2023 3:03 AM EDT 09/04/2023 3:21 AM EDT Narrative Resulting Agency Comment Spec In Lab Eufemia Copeland MD HEMATOLOGY ORDERAB LES [facility] [place] [address] * (ABNORMAL) Basic Metabolic Panel (non-fasting) (09/04/2023 3:03 AM EDT) Glucose Lvl 117 65 - 199 mg/dL [facility] Comment:Diabetes: >=200 mg/d L plus symptoms BUN 28(H) 8 - 18 mg/dL [facility] Creatinine 1.32(H) 0.70 - 1.20 mg/dL [facility] Sodium 134(L) 135 - 145 mmol/L [facility] Potassium Not Perf 3.5 - 5.0 [facility] Comment: Unable to quantitate due [...] questions. Chloride 92(L) 98 - 107 mmol/L [facility] CO2 26 22 - 31 mmol/L [facility] Anion Gap 16(H) 5 - 15 mmol/L [facility] Calcium 10.0 8.5 - 10.5 mg/dL [facility] Estimated GFR 48(L) >=60 mL/min/1. 73 m?? [facility] Comment: This patient's estimated GFR [...] CHEMISTRY ORDERABL ES Performing Organization Address [facility] Co de Phone Number [facility] [place] [address] * Magnesium (09/04/2023 3:03 AM EDT) Pathologist [facility] Magnesium 1.07 0.69 - 1.07 mmol/L [facility] Blood 09/04/2023 3:03 AM EDT 09/04/2023 3:21 AM EDT Narrative Resulting Agency Comment Spec In Lab Eufemia Copeland MD CHEMISTRY ORDERABL ES Performing Organization Address [facility] Co de Phone Number [facility] [place] [address] * EKG 12 Lead (09/03/2023 6:02 AM EDT) Ventricular rate 65 BPM MUSE SYSTEM Atrial Rate 65 BPM MUSE SYSTEM P-R Interval 196 ms MUSE SYSTEM QRS Duration 94 ms MUSE SYSTEM Q-T Interval 580 ms MUSE SYSTEM QTC Calculated (Bezet) 603 ms MUSE SYSTEM Calculated P [place] 39 degrees MUSE SYSTEM Calculated R [place] 28 degrees MUSE SYSTEM Calculated T [place] 35 degrees MUSE SYSTEM INTERPRETATION Sinus rhythm with Premature atrial complexes Possible Left atrial enlargement Nonspecific ST and T wave abnormality Abnormal ECG When compared with ECG of 03-SEP-2023 03:05, Nonspecific T wave abnormality no longer evident in Inferior leads Nonspecific T wave abnormality, improved in Anterolateral leads QT has lengthened Confirmed by fellow MD Santo Kajal ([id number]) on 09/06/2023 12:52:08 AM Confirmed by MD Lucia Jose ([id number]) on 09/06/2023 9:05:05 PM MUSE SYSTEM 09/03/2023 6:02 AM EDT 09/06/2023 9:05 PM EDT Archie Mcmanus MD ECG ORDERABLES Performing Organization Address [facility] de Phone Number MUSE SYSTEM * EKG 12 Lead (09/03/2023 3:05 AM EDT) Ventricular rate 62 BPM MUSE SYSTEM Atrial Rate 62 BPM MUSE SYSTEM P-R Interval 174 ms MUSE SYSTEM QRS Duration 90 ms MUSE SYSTEM Q-T Interval 486 ms MUSE SYSTEM QTC Calculated (Bezet) 493 ms MUSE SYSTEM Calculated P [place] 20 degrees MUSE SYSTEM Calculated R [place] 20 degrees MUSE SYSTEM Calculated T [place] -7 degrees MUSE SYSTEM INTERPRETATION Sinus rhythm with Premature atrial complexes Nonspecific ST and T wave abnormality Abnormal ECG When compared with ECG of 02-SEP-2023 14:42, Premature atrial complexes are now Present QT has lengthened Confirmed by fellow MD Hansa, Sindhu ([id number]) on 09/06/2023 12:50:25 AM Confirmed by MD Khari, Mikey ([id number]) on 09/06/2023 9:04:55 PM MUSE SYSTEM 09/03/2023 3:05 AM EDT 09/06/2023 9:04 PM EDT Archie Mcmanus MD ECG ORDERABLES Performing Organization Address [facility] Phone Number MUSE SYSTEM * Differential, Automated (09/03/2023 2:39 AM EDT) Neutrophils % 61.1 % [facility] Neutr Abs (ANC) 5.22 1.70 - 6.10 x10(3)/[facility] Lymphocytes % 24.2 % [facility] Lymphocytes Abs 2.1 0.9 - 3.2 x10(3)/[facility] Monocytes % 10.3 % [facility] Monocyte Abs 0.9 0.3 - 0.9 x10(3)/[facility] Eosinophils % 3.6 % [facility] Eosinophils Abs 0.3 0.0 - 0.4 x10(3)/[facility] Basophils % 0.6 % [facility] Basophils Abs 0.0 0.0 - 0.1 x10(3)/[facility] Immature Gran % 0.20 % [facility] Comment: Immature granulocytes(IG's)percentage and absolute count will include metamyelocytes, myelocytes, and promyelocytes. Blood smears from CBCs yielding IG's will be scanned manually for concordance. If this scan disagrees with the automated IG or if promyelocytes are noted, a manual differential will be performed. Shonda Gran Abs 0.02 0.00 - 0.04 x10(3)/[facility] Blood 09/03/2023 2:39 AM EDT 09/03/2023 2:46 AM EDT Narrative Resulting Agency Comment Spec In Lab Eufemia Copeland MD HEMATOLOGY ORDERAB LES [facility] [place] [address] * Hemogram (09/03/2023 2:39 AM EDT) WBC 8.6 4.0 - 9.5 x10(3)/[facility] RBC 4.83 4.00 - 5.21 x10(6)/[facility] Hemoglobin 15.2 11.7 - 15.5 g/dL [facility] Hematocrit 45.4 35.7 - 45.8 % [facility] MCV 94.0 82.6 - 94.4 fL [facility] MCH 31.5 27.1 - 32.0 pg [facility] MCHC 33.5 31.7 - 35.0 g/dL [facility] Platelets 295 145 - 357 x10(3)/[facility] RDWSD 44.1 37.0 - 46.0 fL [facility] RDWCV 12.8 11.5 - 14.1 % [facility] MPV 10.3 7.6 - 12.9 fL [facility] nRBC % Auto 0.0 % [facility] nRBC Abs Auto 0.000 0.000 - 0.000 x10(3)/mcL [facility] Blood 09/03/2023 2:39 AM EDT 09/03/2023 2:46 AM EDT Narrative Resulting Agency Comment Spec In Lab Eufemia Copeland MD HEMATOLOGY ORDERAB LES [facility] [place] [address] * (ABNORMAL) Basic Metabolic Panel (non-fasting) (09/03/2023 2:39 AM EDT) Glucose Lvl 108 65 - 199 mg/dL [facility] Comment:Diabetes: >=200 mg/d L plus symptoms BUN 23(H) 8 - 18 mg/dL [facility] Creatinine 1.53(H) 0.70 - 1.20 mg/dL [facility] Sodium 138 135 - 145 mmol/L [facility] Potassium 3.4(L) 3.5 - 5.0 mmol/L [facility] Comment: Please note: ??Patients with WBC >100,000 may have falsely elevated Potassium levels. ??For accurate Potassium quantification in these patients send serum separator tube (gold top) for subsequent determinations. ??Contact the Clinical Chemistry Laboratory if there are any questions. Chloride 93(L) 98 - 107 mmol/L [facility] CO2 30 22 - 31 mmol/L [facility] Anion Gap 15 5 - 15 mmol/L [facility] Calcium 10.4 8.5 - 10.5 mg/dL [facility] Estimated GFR 40(L) >=60 mL/min/1. 73 m?? [facility] Comment: This patient's estimated GFR [...] CHEMISTRY ORDERABL ES Performing Organization Address [facility] Co de Phone Number [facility] [place] [address] * Magnesium (09/03/2023 2:39 AM EDT) Magnesium 0.98 0.69 - 1.07 mmol/L [facility] Blood 09/03/2023 2:39 AM EDT 09/03/2023 2:46 AM EDT Narrative Resulting Agency Comment Spec In Lab Eufemia Copeland MD CHEMISTRY ORDERABL ES Performing Organization Address [facility] Co de Phone Number [facility] [place] [address] * (ABNORMAL) Protein Electrophoresis, serum (09/03/2023 2:39 AM EDT) Total Prot Elec 7.9 6.1 - 8.0 g/dL [facility] Albumin Elect 4.87 3.20 - 5.20 g/dL [facility] Alpha1-Globul in 0.21 0.10 - 0.30 g/dL [facility] Alpha2-Globul in 1.03(H) 0.40 - 0.90 g/dL [facility] Beta Globulin 0.90 0.50 - 1.00 g/dL [facility] Gamma Globulin 0.88 0.50 - 1.30 g/dL [facility] M1 Band None Detected None Detected [facility] Blood 09/03/2023 2:39 AM EDT 09/03/2023 2:46 AM EDT Narrative Resulting Agency Comment Spec In Lab Lorna Herr MD CHEMISTRY ORDERABLES Performing Organization Address [facility]/ZIP Co de Phone Number [facility] [place] [address] * Protein Electrophoresis, urine, random (09/02/2023 9:30 PM EDT) Pathologist [facility] U Protein Ran <6 0 - 12 mg/dL [facility] U Albumin See Note [facility] Comment:No protein visible v ia electrophoresis due to a low urine total protein. U Globulin Not Perf [facility] Comment:No protein visible v ia electrophoresis due to a low urine total protein. U M Band Not Perf [facility] Comment:No protein visible v ia electrophoresis due to a low urine total protein. U PEP Comments See Note [facility] Comment: Total Protein concentration too low to fractionate using current electrophoretic technique. No protein visible via electrophoresis due to a low urine total protein. Urine 09/02/2023 9:30 PM EDT 09/02/2023 9:35 PM EDT Narrative Resulting Agency Comment Spec In Lab Lorna Herr MD URINE ORDERABLES Performing Organization Address [facility]/ZIP Co de Phone Number [facility] [place] [address] * (ABNORMAL) Troponin (09/02/2023 8:16 PM EDT) Pathologist [facility] Troponin-T HS 24(H) <=14 ng/L [facility] Comment: [...] troponin value can be found in the [facility] Test Catalog Troponin - [facility] Test Catalog Reference: Fourth [place] Definition of Myocardial Infarction. Journal of the [place] [employer] 2018;72:3245-6443 Blood 09/02/2023 8:16 PM EDT 09/02/2023 8:25 PM EDT Narrative Resulting Agency Comment Spec In Lab Lorna Herr MD CHEMISTRY ORDERABLES Performing Organization Address City/[facility]/ZIP Co de Phone Number [facility] [place] [address] * (ABNORMAL) pro-Brain Natriuretic Peptide (09/02/2023 5:05 PM EDT) ProBNP 985(H) <=124 pg/mL [facility] Blood 09/02/2023 5:05 PM EDT 09/02/2023 5:17 PM EDT Narrative Resulting Agency Comment Spec In Lab Lorna Herr MD CHEMISTRY ORDERABLES Performing Organization Address City/[facility]/ZIP Co de Phone Number [facility] [place] [address] * (ABNORMAL) Troponin (09/02/2023 5:05 PM EDT) Troponin-T HS 24(H) <=14 ng/L [facility] Comment: [...] troponin value can be found in the [facility] Test Catalog Troponin - [facility] Test Catalog Reference: Fourth [place] Definition of Myocardial Infarction. Journal of the [place] [employer] 2018;72:1334-7343 Blood 09/02/2023 5:05 PM EDT 09/02/2023 5:17 PM EDT Narrative Resulting Agency Comment Spec In Lab Lorna Herr MD CHEMISTRY ORDERABLES [facility] [place] [address] * EKG 12 Lead (09/02/2023 2:42 PM EDT) Ventricular rate 60 BPM MUSE SYSTEM Atrial Rate 60 BPM MUSE SYSTEM P-R Interval 178 ms MUSE SYSTEM QRS Duration 88 ms MUSE SYSTEM Q-T Interval 434 ms MUSE SYSTEM QTC Calculated (Bezet) 434 ms MUSE SYSTEM Calculated P [place] 42 degrees MUSE SYSTEM Calculated R [place] 44 degrees MUSE SYSTEM INTERPRETATION Normal sinus [...] troponin value can be found in the [facility] Test Catalog Troponin - [facility] Test Catalog Reference: Fourth [place] Definition of Myocardial Infarction. Journal of the [place] [employer] 2018;72:7922-4605 Blood 09/02/2023 9:05 AM EDT 09/02/2023 9:28 AM EDT Narrative Resulting Agency Comment Spec In Lab Archie Mcmanus MD CHEMISTRY ORDERABLES Performing Organization Address City/[facility]/ZIP Co de Phone Number [facility] [place] [address] * Differential, Automated (09/02/2023 3:18 AM EDT) Neutrophils % 58.4 % [facility] Neutr Abs (ANC) 4.40 1.70 - 6.10 x10(3)/[facility] Lymphocytes % 28.2 % [facility] Lymphocytes Abs 2.1 0.9 - 3.2 x10(3)/[facility] Monocytes % 8.3 % [facility] Monocyte Abs 0.6 0.3 - 0.9 x10(3)/[facility] Eosinophils % 4.2 % [facility] Eosinophils Abs 0.3 0.0 - 0.4 x10(3)/[facility] Basophils % 0.5 % [facility] Basophils Abs 0.0 0.0 - 0.1 x10(3)/[facility] Immature Gran % 0.40 % [facility] Comment: Immature granulocytes(IG's)percentage and absolute count will include metamyelocytes, myelocytes, and promyelocytes. Blood smears from CBCs yielding IG's will be scanned manually for concordance. If this scan disagrees with the automated IG or if promyelocytes are noted, a manual differential will be performed. Shonda Gran Abs 0.03 0.00 - 0.04 x10(3)/[facility] Blood 09/02/2023 3:18 AM EDT 09/02/2023 3:55 AM EDT Narrative Resulting Agency Comment Spec In Lab Eufemia Copeland MD HEMATOLOGY ORDERAB LES Performing Organization Address City/[facility]/ZIP Co de Phone Number [facility] [place] [address] * (ABNORMAL) Hemogram (09/02/2023 3:18 AM EDT) Pathologist [facility] WBC 7.6 4.0 - 9.5 x10(3)/[facility] RBC 4.33 4.00 - 5.21 x10(6)/[facility] Hemoglobin 13.6 11.7 - 15.5 g/dL [facility] Hematocrit 41.0 35.7 - 45.8 % [facility] MCV 94.7(H) 82.6 - 94.4 [facility] MCH 31.4 27.1 - 32.0 pg [facility] MCHC 33.2 31.7 - 35.0 g/dL [facility] Platelets 275 145 - 357 x10(3)/[facility] RDWSD 45.7 37.0 - 46.0 [facility] RDWCV 13.2 11.5 - 14.1 % [facility] MPV 10.7 7.6 - 12.9 [facility] nRBC % Auto 0.0 % [facility] nRBC Abs Auto 0.000 0.000 - 0.000 x10(3)/[facility] Blood 09/02/2023 3:18 AM EDT 09/02/2023 3:55 AM EDT Narrative Resulting Agency Comment Spec In Lab Eufemia Copeland MD HEMATOLOGY ORDERAB LES [facility] [place] [address] * (ABNORMAL) Troponin (09/02/2023 3:18 AM EDT) Pathologist [facility] Troponin-T HS 23(H) <=14 ng/L [facility] Comment: [...] troponin value can be found in the [facility] Test Catalog Troponin - [facility] Test Catalog Reference: Fourth [place] Definition of Myocardial Infarction. Journal of the [place] [employer] 2018;72:[id number] Blood 09/02/2023 3:18 AM EDT 09/02/2023 3:55 AM EDT Narrative Resulting Agency Comment Spec In Lab Archie Mcmanus MD CHEMISTRY ORDERABLES [facility] [place] [address] * (ABNORMAL) Basic Metabolic Panel (non-fasting) (09/02/2023 3:18 AM EDT) Glucose Lvl 121 65 - 199 mg/dL [facility] Comment:Diabetes: >=200 mg/d L plus symptoms BUN 17 8 - 18 mg/dL [facility] Creatinine 1.20 0.70 - 1.20 mg/dL [facility] Sodium 140 135 - 145 mmol/L [facility] Potassium 3.7 3.5 - 5.0 mmol/L [facility] Comment: Please note: ??Patients with WBC >100,000 may have falsely elevated Potassium levels. ??For accurate Potassium quantification in these patients send serum separator tube (gold top) for subsequent determinations. ??Contact the Clinical Chemistry Laboratory if there are any questions. Chloride 101 98 - 107 mmol/L [facility] CO2 25 22 - 31 mmol/L [facility] Anion Gap 14 5 - 15 mmol/L [facility] Calcium 9.5 8.5 - 10.5 mg/dL [facility] Estimated GFR 54(L) >=60 mL/min/1. 73 m?? [facility] Comment: This patient's estimated GFR [...] CHEMISTRY ORDERABL ES Performing Organization Address [facility]/ZIP Co de Phone Number [facility] [place] [address] * Magnesium (09/02/2023 3:18 AM EDT) Magnesium 0.91 0.69 - 1.07 mmol/L [facility] Blood 09/02/2023 3:18 AM EDT 09/02/2023 3:55 AM EDT Narrative Resulting Agency Comment Spec In Lab Eufemia Copeland MD CHEMISTRY ORDERABL ES Performing Organization Address City/[facility]/ZIP Co de Phone Number [facility] [place] [address] * Differential, Automated (09/01/2023 3:08 AM EDT) Pathologist [facility] Neutrophils % 57.1 % [facility] Neutr Abs (ANC) 4.00 1.70 - 6.10 x10(3)/[facility] Lymphocytes % 26.9 % [facility] Lymphocytes Abs 1.9 0.9 - 3.2 x10(3)/[facility] Monocytes % 11.4 % [facility] Monocyte Abs 0.8 0.3 - 0.9 x10(3)/[facility] Eosinophils % 4.1 % [facility] Eosinophils Abs 0.3 0.0 - 0.4 x10(3)/[facility] Basophils % 0.4 % [facility] Basophils Abs 0.0 0.0 - 0.1 x10(3)/[facility] Immature Gran % 0.10 % [facility] Comment: Immature granulocytes(IG's)percentage and absolute count will include metamyelocytes, myelocytes, and promyelocytes. Blood smears from CBCs yielding IG's will be scanned manually for concordance. If this scan disagrees with the automated IG or if promyelocytes are noted, a manual differential will be performed. Shonda Gran Abs 0.01 0.00 - 0.04 x10(3)/[facility] LABORATORY Blood 09/01/2023 3:08 AM EDT 09/01/2023 3:18 AM EDT Narrative Resulting Agency Comment Spec In Lab Eufemia Copeland MD HEMATOLOGY ORDERAB LES [facility] [place] [address] * (ABNORMAL) Hemogram (09/01/2023 3:08 AM EDT) Pathologist [facility] WBC 7.0 4.0 - 9.5 x10(3)/[facility] LABORATORY RBC 4.18 4.00 - 5.21 x10(6)/[facility] LABORATORY Hemoglobin 13.6 11.7 - 15.5 g/dL [facility] Hematocrit 39.8 35.7 - 45.8 % [facility] MCV 95.2(H) 82.6 - 94.4 [facility] LABORATORY MCH 32.5(H) 27.1 - 32.0 pg [facility] MCHC 34.2 31.7 - 35.0 g/dL [facility] Platelets 232 145 - 357 x10(3)/[facility] LABORATORY RDWSD 45.0 37.0 - 46.0 [facility] LABORATORY RDWCV 13.1 11.5 - 14.1 % [facility] LAB[facility]ORY MPV 10.2 7.6 - 12.9 [facility] LABORATORY nRBC % Auto 0.0 % [facility] LABORATORY nRBC Abs Auto 0.000 0.000 - 0.000 x10(3)/[facility] LABORATORY Blood 09/01/2023 3:08 AM EDT 09/01/2023 3:18 AM EDT Narrative Resulting Agency Comment Spec In Lab Eufemia Copeland MD HEMATOLOGY ORDERAB LES [facility] [place] [address] * (ABNORMAL) Basic Metabolic Panel (non-fasting) (09/01/2023 3:08 AM EDT) Glucose Lvl 110 65 - 199 mg/dL [facility]ORY Comment:Diabetes: >=200 mg/d L plus symptoms BUN 20(H) 8 - 18 mg/dL [facility] Creatinine 1.22(H) 0.70 - 1.20 mg/dL [facility] Sodium 138 135 - 145 mmol/L [facility] Potassium 4.0 3.5 - 5.0 mmol/L [facility] Comment: Please note: ??Patients with WBC >100,000 may have falsely elevated Potassium levels. ??For accurate Potassium quantification in these patients send serum separator tube (gold top) for subsequent determinations. ??Contact the Clinical Chemistry Laboratory if there are any questions. Chloride 101 98 - 107 mmol/L [facility] CO2 23 22 - 31 mmol/L [facility] Anion Gap 14 5 - 15 mmol/L [facility] Calcium 9.7 8.5 - 10.5 mg/dL [facility] Estimated GFR 53(L) >=60 mL/min/1. 73 m?? [facility] Comment: This patient's estimated GFR [...] CHEMISTRY ORDERABL ES Performing Organization Address [facility]/ZIP Co de Phone Number [facility] [place] [address] * Magnesium (09/01/2023 3:08 AM EDT) Magnesium 0.98 0.69 - 1.07 mmol/L [facility] Blood 09/01/2023 3:08 AM EDT 09/01/2023 3:18 AM EDT Narrative Resulting Agency Comment Spec In Lab Eufemia Copeland MD CHEMISTRY ORDERABL ES Performing Organization Address City/[facility]/ZIP Co de Phone Number [facility] [place] [address] * Magnesium (08/31/2023 5:03 PM EDT) Magnesium 0.95 0.69 - 1.07 mmol/L [facility]ORY Blood 08/31/2023 5:03 PM EDT 08/31/2023 5:08 PM EDT Narrative Resulting Agency Comment Spec In Lab Eufemia Copeland MD CHEMISTRY ORDERABL ES Performing Organization Address [facility]/ZIP Co de Phone Number [facility] [place] [address] * Phosphorus (08/31/2023 5:03 PM EDT) Pathologist [facility] Phosphorus 3.8 2.5 - 4.5 mg/dL [facility] Blood 08/31/2023 5:03 PM EDT 08/31/2023 5:08 PM EDT Narrative Resulting Agency Comment Spec In Lab Eufemia Copeland MD CHEMISTRY ORDERABL ES Performing Organization Address City/[facility]/ZIP Co de Phone Number [facility] [place] [address] * (ABNORMAL) Basic Metabolic Panel (non-fasting) (08/31/2023 5:03 PM EDT) Glucose Lvl 111 65 - 199 mg/dL [facility] Comment:Diabetes: >=200 mg/d L plus symptoms BUN 17 8 - 18 mg/dL [facility] Creatinine 1.14 0.70 - 1.20 mg/dL [facility] Sodium 138 135 - 145 mmol/L [facility] Potassium 3.8 3.5 - 5.0 mmol/L [facility] Comment: Please note: ??Patients with WBC >100,000 may have falsely elevated Potassium levels. ??For accurate Potassium quantification in these patients send serum separator tube (gold top) for subsequent determinations. ??Contact the Clinical Chemistry Laboratory if there are any questions. Chloride 101 98 - 107 mmol/L [facility] CO2 23 22 - 31 mmol/L [facility] Anion Gap 14 5 - 15 mmol/L [facility] Calcium 9.6 8.5 - 10.5 mg/dL [facility] Estimated GFR 57(L) >=60 mL/min/1. 73 m?? [facility] Comment: This patient's estimated GFR [...] Lab Eufemia Copeland MD CHEMISTRY ORDERABL ES [facility] [place] [address] * Differential, Automated (08/31/2023 2:18 AM EDT) Neutrophils % 58.1 % [facility] LABOR[facility] Neutr Abs (ANC) 4.52 1.70 - 6.10 x10(3)/[facility] LABORATORY Lymphocytes % 25.8 % [facility] Lymphocytes Abs 2.0 0.9 - 3.2 x10(3)/[facility] LABORATORY Monocytes % 11.0 % [facility] LABORATORY Monocyte Abs 0.9 0.3 - 0.9 x10(3)/[facility] LABORATORY Eosinophils % 4.0 % [facility] Eosinophils Abs 0.3 0.0 - 0.4 x10(3)/[facility] LABORATORY Basophils % 0.6 % [facility] Basophils Abs 0.0 0.0 - 0.1 x10(3)/[facility] LABORATORY Immature Gran % 0.50 % [facility] Comment: Immature granulocytes(IG's)percentage and absolute count will include metamyelocytes, myelocytes, and promyelocytes. Blood smears from CBCs yielding IG's will be scanned manually for concordance. If this scan disagrees with the automated IG or if promyelocytes are noted, a manual differential will be performed. Shonda Gran Abs 0.04 0.00 - 0.04 x10(3)/[facility] LABORATORY Blood 08/31/2023 2:18 AM EDT 08/31/2023 2:23 AM EDT Narrative Resulting Agency Comment Spec In Lab Archie Mcmanus MD HEMATOLOGY ORDERABLE S Performing Organization Address City/State/[facility] Co de Phone Number [facility] [place] [address] * (ABNORMAL) Hemogram (08/31/2023 2:18 AM EDT) WBC 7.8 4.0 - 9.5 x10(3)/[facility] LABORATORY RBC 3.97(L) 4.00 - 5.21 x10(6)/[facility] LABORATORY Hemoglobin 12.6 11.7 - 15.5 g/dL [facility]ORY Hematocrit 38.5 35.7 - 45.8 % [facility] MCV 97.0(H) 82.6 - 94.4 fL [facility] MCH 31.7 27.1 - 32.0 pg [facility] MCHC 32.7 31.7 - 35.0 g/dL [facility] Platelets 218 145 - 357 x10(3)/[facility] LABORATORY RDWSD 47.5(H) 37.0 - 46.0 fL [facility] RDWCV 13.2 11.5 - 14.1 % [facility] MPV 10.6 7.6 - 12.9 fL [facility] nRBC % Auto 0.0 % [facility] nRBC Abs Auto 0.000 0.000 - 0.000 x10(3)/mcL [facility] LABORATORY Blood 08/31/2023 2:18 AM EDT 08/31/2023 2:23 AM EDT Narrative Resulting Agency Comment Spec In Lab Archie Mcmanus MD HEMATOLOGY ORDERABLE S Performing Organization Address City/[facility]/ZIP Co de Phone Number [facility] [place] [address] * Magnesium (08/31/2023 2:18 AM EDT) Pathologist [facility] Magnesium 0.96 0.69 - 1.07 mmol/L [facility] Blood 08/31/2023 2:18 AM EDT 08/31/2023 2:23 AM EDT Narrative Resulting Agency Comment Spec In Lab Eufemia Copeland MD CHEMISTRY ORDERABL ES Performing Organization Address [facility] Co de Phone Number [facility] [place] [address] * (ABNORMAL) Basic Metabolic Panel (non-fasting) (08/31/2023 2:18 AM EDT) Glucose Lvl 114 65 - 199 mg/dL [facility] Comment:Diabetes: >=200 mg/d L plus symptoms BUN 18 8 - 18 mg/dL [facility] Creatinine 1.37(H) 0.70 - 1.20 mg/dL [facility] Sodium 137 135 - 145 mmol/L [facility] Comment:result rechecked-bz Potassium 3.8 3.5 - 5.0 mmol/L [facility] Comment: result rechecked-bz Please note: ??Patients with WBC >100,000 may have falsely elevated Potassium levels. ??For accurate Potassium quantification in these patients send serum separator tube (gold top) for subsequent determinations. ??Contact the Clinical Chemistry Laboratory if there are any questions. Chloride 100 98 - 107 mmol/L [facility] Comment:result rechecked-bz CO2 25 22 - 31 mmol/L [facility] Anion Gap 12 5 - 15 mmol/L [facility] Calcium 9.6 8.5 - 10.5 mg/dL [facility] Comment:result rechecked-bz Estimated GFR 46(L) >=60 mL/min/1. 73 m?? [facility] Comment: This patient's estimated GFR [...] Mcmanus MD CHEMISTRY ORDERABLES Performing Organization Address City/State/[facility] Co de Phone Number [facility] [place] [address] * Differential, Automated (08/30/2023 3:09 AM EDT) Neutrophils % 67.5 % [facility] Neutr Abs (ANC) 5.26 1.70 - 6.10 x10(3)/[facility] LABORATORY Lymphocytes % 19.1 % [facility] Lymphocytes Abs 1.5 0.9 - 3.2 x10(3)/[facility] LABORATORY Monocytes % 9.4 % [facility] Monocyte Abs 0.7 0.3 - 0.9 x10(3)/[facility] LABORATORY Eosinophils % 3.2 % [facility] Eosinophils Abs 0.2 0.0 - 0.4 x10(3)/[facility] LABORATORY Basophils % 0.4 % [facility] Basophils Abs 0.0 0.0 - 0.1 x10(3)/[facility] LABORATORY Immature Gran % 0.40 % [facility] Comment: Immature granulocytes(IG's)percentage and absolute count will include metamyelocytes, myelocytes, and promyelocytes. Blood smears from CBCs yielding IG's will be scanned manually for concordance. If this scan disagrees with the automated IG or if promyelocytes are noted, a manual differential will be performed. Shonda Gran Abs 0.03 0.00 - 0.04 x10(3)/[facility] LABORATORY Blood 08/30/2023 3:09 AM EDT 08/30/2023 3:21 AM EDT Narrative Resulting Agency Comment Spec In Lab Archie Mcmanus MD HEMATOLOGY ORDERABLE S [facility] [place] [address] * (ABNORMAL) Hemogram (08/30/2023 3:09 AM EDT) WBC 7.8 4.0 - 9.5 x10(3)/[facility] LABORATORY RBC 3.34(L) 4.00 - 5.21 x10(6)/[facility] LABORATORY Hemoglobin 10.5(L) 11.7 - 15.5 g/dL [facility] Hematocrit 31.8(L) 35.7 - 45.8 % [facility] MCV 95.2(H) 82.6 - 94.4 fL [facility] MCH 31.4 27.1 - 32.0 pg [facility] MCHC 33.0 31.7 - 35.0 g/dL [facility] Platelets 176 145 - 357 x10(3)/[facility] LABORATORY RDWSD 46.5(H) 37.0 - 46.0 [facility] LABORATORY RDWCV 13.2 11.5 - 14.1 % [facility] MPV 10.9 7.6 - 12.9 [facility] LABORATORY nRBC % Auto 0.0 % [facility] nRBC Abs Auto 0.000 0.000 - 0.000 x10(3)/[facility] LABORATORY Blood 08/30/2023 3:09 AM EDT 08/30/2023 3:21 AM EDT Narrative Resulting Agency Comment Spec In Lab Archie Mcmanus MD HEMATOLOGY ORDERABLE S Performing Organization Address City/State/[facility] Co de Phone Number [facility] [place] [address] * Heparin (unfractionated) Level (08/30/2023 3:09 AM EDT) Heparin UFH Level 0.46 IU/mL [facility] Comment: Heparin (anti-Xa) levels should [...] Lab Archie Mcmanus MD HEMATOLOGY ORDERABLE S [facility] [place] [address] * Magnesium (08/30/2023 3:09 AM EDT) Pathologist [facility] Magnesium 0.74 0.69 - 1.07 mmol/L [facility] Blood 08/30/2023 3:09 AM EDT 08/30/2023 3:20 AM EDT Narrative Resulting Agency Comment Spec In Lab Eufemia Copeland MD CHEMISTRY ORDERABL ES Performing Organization Address [facility] Co de Phone Number [facility] [place] [address] * (ABNORMAL) Basic Metabolic Panel (non-fasting) (08/30/2023 3:09 AM EDT) [facility] Glucose Lvl 99 65 - 199 mg/dL [facility] Comment:Diabetes: >=200 mg/d L plus symptoms BUN 16 8 - 18 mg/dL [facility] Creatinine 1.03 0.70 - 1.20 mg/dL [facility] Sodium 145 135 - 145 mmol/L [facility] Potassium 3.7 3.5 - 5.0 mmol/L [facility] Comment: Please note: ??Patients with WBC >100,000 may have falsely elevated Potassium levels. ??For accurate Potassium quantification in these patients send serum separator tube (gold top) for subsequent determinations. ??Contact the Clinical Chemistry Laboratory if there are any questions. Chloride 114(H) 98 - 107 mmol/L [facility] CO2 19(L) 22 - 31 mmol/L [facility] Anion Gap 12 5 - 15 mmol/L [facility] Calcium 7.1(L) 8.5 - 10.5 mg/dL [facility] Comment:result rechecked-mg Estimated GFR 65 >=60 mL/min/1. 73 m?? [facility] Comment: This patient's estimated GFR [...] Mcmanus MD CHEMISTRY ORDERABLES Performing Organization Address [facility] Co de Phone Number [facility] [place] [address] * Heparin (unfractionated) Level (08/29/2023 5:49 PM EDT) Heparin UFH Level 0.52 IU/mL [facility] Comment: Heparin (anti-Xa) levels should [...] MD HEMATOLOGY ORDERABLE S Performing Organization Address [facility]/ZIP Co de Phone Number [facility] [place] [address] * EKG 12 Lead (08/29/2023 3:05 PM EDT) Ventricular rate 56 BPM MUSE SYSTEM Atrial Rate 56 BPM MUSE SYSTEM P-R Interval 172 ms MUSE SYSTEM QRS Duration 86 ms MUSE SYSTEM Q-T Interval 560 ms MUSE SYSTEM QTC Calculated (Bezet) 540 ms MUSE SYSTEM Calculated P [place] 10 degrees MUSE SYSTEM Calculated R [place] 27 degrees MUSE SYSTEM Calculated T [place] 8 degrees MUSE SYSTEM INTERPRETATION Sinus bradycardia [...] AM EDT) Heparin UFH Level 0.55 IU/mL [facility] Comment: Heparin (anti-Xa) levels should [...] Archie Mcmanus MD HEMATOLOGY ORDERABLE S [facility] [place] [address] * ECHO LMTD W CONTRAST W LMTD SPEC DOPP COLOR DOPP (08/29/2023 11:35 AM EDT) EF 50 [facility]ART[facility] SYSTEM Anatomical Region Laterality Modality Cardiac Other 08/29/2023 9:47 AM EDT Narrative 08/29/2023 12:27 PM EDT [address] [place] [id number] ? Echocardiogram Report Name: JUDE, LOIDA ? Study Date: 08/29/2023 09:47 AMBP: 100/55 mmHg ? Patient Location: [id number] A : 1970 ? Height: 163 cm ? Account: [id number] Age: 53 yrs ? Weight: 102 kg Gender: Female ?BSA: 2.1 m2 Ordering Physician: ARCHIE MCMANUS Referring Physician: SKIP HUMPHREY Performed By: Nalini Alvares RDCS Exam Location: [facility]. Interpretation Summary Left ventricle is [...] of the anterior wall. Procedure Limited - 72009. Image enhancement Optison was used for left [...] Note Jaspreet Kinsey MD - 08/29/2023 [address] [place] [address] Echocardiogram Report Name: LOIDA MADRIGAL Study Date: 409:47 AMBP: 100/55 mmHg Patient Location: [address] : 1970 Height: 163 cm Account: [id number] Age: 53 yrs Weight: 102 kg Gender: Female BSA: 2.1 m2 Ordering Physician: ARCHIE MCMANUS Referring Physician: SKIP HUMPHREY Performed By: Nalini Alvares RDCS Exam Location: [facility]. Interpretation Summary Left ventricle is normal in size. There is low normal global systolicfunction, with focal hypokinesis in the anteroseptum as ascribed. Right ventricle is not well visualized. No hemodynamically significant valve disease. Compared to prior studies over the past 6 months, there has been stableglobal LV systolic function, with oscillating regional function of the anteriorwall. Procedure Limited - 07178. Image enhancement Optison was used for left [...] (Bezet) 546 ms MUSE SYSTEM Calculated P [place] 21 degrees MUSE SYSTEM Calculated R [place] 21 degrees MUSE SYSTEM Calculated T [place] 0 degrees MUSE SYSTEM INTERPRETATION Sinus bradycardia Possible Lateral infarct (cited on or before 29-JUL-2023) Prolonged QT Abnormal ECG When compared with ECG of 29-JUL-2023 08:47, Premature atrial complexes are no longer Present Criteria for Septal infarct are no longer Present Nonspecific T wave abnormality, improved in Inferior leads QT has lengthened Confirmed by MD Kinsey Daniel ([id number]) on 08/29/2023 3:51:39 PM MUSE SYSTEM 08/29/2023 6:04 AM EDT 08/29/2023 3:51 PM EDT Archie Mcmanus MD ECG ORDERABLES MUSE SYSTEM * CRP, acute inflammation (08/29/2023 4:01 AM EDT) Pathologist [facility] CRP <3.0 <=4.9 mg/L [facility] Blood Venous Draw / Unknown 08/29/2023 4:01 AM EDT 08/29/2023 4:13 AM EDT Narrative Resulting Agency Comment Spec In Lab Eufemia Copeland MD CHEMISTRY ORDERABL ES [facility] [place] [address] * Sedimentation rate (08/29/2023 4:01 AM EDT) Pathologist [facility] Sed Rate 11 2 - 39 mm/hr [facility] Comment: Effective February 15, 2019 [...] MD HEMATOLOGY ORDERAB LES Performing Organization Address City/[facility]/ZIP Co de Phone Number [facility] [place] [address] * Green Tube HOLD (08/29/2023 4:01 AM EDT) Green Hold Sample in lab. [facility] Blood Venous Draw / Unknown 08/29/2023 4:01 AM EDT 08/29/2023 4:09 AM EDT Archie Mcmanus MD CHEMISTRY ORDERABLES Performing Organization Address City/[facility]/ZIP Co de Phone Number [facility] [place] [address] * Differential, Automated (08/29/2023 4:01 AM EDT) Neutrophils % 65.6 % [facility] Neutr Abs (ANC) 5.23 1.70 - 6.10 x10(3)/[facility] LABORATORY Lymphocytes % 21.4 % [facility] Lymphocytes Abs 1.7 0.9 - 3.2 x10(3)/[facility] LABORATORY Monocytes % 8.5 % [facility] Monocyte Abs 0.7 0.3 - 0.9 x10(3)/[facility] LABORATORY Eosinophils % 4.0 % [facility] Eosinophils Abs 0.3 0.0 - 0.4 x10(3)/[facility] LABORATORY Basophils % 0.4 % [facility] Basophils Abs 0.0 0.0 - 0.1 x10(3)/[facility] LABORATORY Immature Gran % 0.10 % [facility] Comment: Immature granulocytes(IG's)percentage and absolute count will include metamyelocytes, myelocytes, and promyelocytes. Blood smears from CBCs yielding IG's will be scanned manually for concordance. If this scan disagrees with the automated IG or if promyelocytes are noted, a manual differential will be performed. Shonda Gran Abs 0.01 0.00 - 0.04 x10(3)/[facility] LABORATORY Blood 08/29/2023 4:01 AM EDT 08/29/2023 4:08 AM EDT Narrative Resulting Agency Comment Spec In Lab Archie Mcmanus MD HEMATOLOGY ORDERABLE S [facility] [place] [address] * (ABNORMAL) Hemogram (08/29/2023 4:01 AM EDT) WBC 8.0 4.0 - 9.5 x10(3)/[facility] LABORATORY RBC 3.91(L) 4.00 - 5.21 x10(6)/[facility] LAB[facility]ORY Hemoglobin 12.6 11.7 - 15.5 g/dL [facility] Hematocrit 37.6 35.7 - 45.8 % [facility] MCV 96.2(H) 82.6 - 94.4 fL [facility] MCH 32.2(H) 27.1 - 32.0 pg [facility] MCHC 33.5 31.7 - 35.0 g/dL [facility] Platelets 197 145 - 357 x10(3)/[facility] LABORATORY RDWSD 46.7(H) 37.0 - 46.0 fL [facility] RDWCV 13.3 11.5 - 14.1 % [facility] MPV 10.4 7.6 - 12.9 [facility] LABORATORY nRBC % Auto 0.0 % [facility] nRBC Abs Auto 0.000 0.000 - 0.000 x10(3)/mcL [facility] Blood 08/29/2023 4:01 AM EDT 08/29/2023 4:08 AM EDT Narrative Resulting Agency Comment Spec In Lab Archie Mcmanus MD HEMATOLOGY ORDERABLE S Performing Organization Address [facility] Co de Phone Number [facility] [place] [address] * (ABNORMAL) Heparin (unfractionated) Level (08/29/2023 4:01 AM EDT) Heparin UFH Level 1.04(Crit ical) IU/mL [facility] Comment: Critical Result called by [...] MD HEMATOLOGY ORDERABLE S Performing Organization Address [facility]/ZIP Co de Phone Number [facility] [place] [address] * (ABNORMAL) Basic Metabolic Panel (non-fasting) (08/29/2023 4:01 AM EDT) Glucose Lvl 106 65 - 199 mg/dL [facility] Comment:Diabetes: >=200 mg/d L plus symptoms BUN 24(H) 8 - 18 mg/dL [facility] Creatinine 1.18 0.70 - 1.20 mg/dL [facility] Sodium 141 135 - 145 mmol/L [facility] Potassium 3.5 3.5 - 5.0 mmol/L [facility] Comment: Please note: ??Patients with WBC >100,000 may have falsely elevated Potassium levels. ??For accurate Potassium quantification in these patients send serum separator tube (gold top) for subsequent determinations. ??Contact the Clinical Chemistry Laboratory if there are any questions. Chloride 107 98 - 107 mmol/L [facility] CO2 22 22 - 31 mmol/L [facility] Anion Gap 12 5 - 15 mmol/L [facility] Calcium 8.8 8.5 - 10.5 mg/dL [facility] Estimated GFR 55(L) >=60 mL/min/1. 73 m?? [facility] Comment: This patient's estimated GFR [...] In Lab Archie Mcmanus MD CHEMISTRY ORDERABLES [facility] [place] [address] * (ABNORMAL) Troponin (08/29/2023 12:31 AM EDT) Troponin-T HS 31(H) <=14 ng/L [facility] Comment: [...] troponin value can be found in the [facility] Test Catalog Troponin - [facility] Test Catalog Reference: Fourth [place] Definition of Myocardial Infarction. Journal of the [place] College [employer] 2018;72:2707-3996 Blood 08/29/2023 12:3 1 AM EDT 08/29/2023 12:35 AM EDT Narrative Resulting Agency Comment Spec In Lab Archie Mcmanus MD CHEMISTRY ORDERABLES [facility] [place] [address] * Differential, Automated (08/28/2023 9:07 PM EDT) Pathologist [facility] Neutrophils % 59.8 % [facility] Neutr Abs (ANC) 4.06 1.70 - 6.10 x10(3)/mcL [facility] Lymphocytes % 28.8 % [facility] Lymphocytes Abs 2.0 0.9 - 3.2 x10(3)/[facility] Monocytes % 5.7 % [facility] Monocyte Abs 0.4 0.3 - 0.9 x10(3)/[facility] Eosinophils % 4.6 % [facility] Eosinophils Abs 0.3 0.0 - 0.4 x10(3)/[facility] Basophils % 0.7 % [facility] Basophils Abs 0.0 0.0 - 0.1 x10(3)/[facility] Immature Gran % 0.40 % [facility] Comment: Immature granulocytes(IG's)percentage and absolute count will include metamyelocytes, myelocytes, and promyelocytes. Blood smears from CBCs yielding IG's will be scanned manually for concordance. If this scan disagrees with the automated IG or if promyelocytes are noted, a manual differential will be performed. Shonda Gran Abs 0.03 0.00 - 0.04 x10(3)/[facility] Blood 08/28/2023 9:07 PM EDT 08/28/2023 9:12 PM EDT Narrative Resulting Agency Comment Spec In Lab Archie Mcmanus MD HEMATOLOGY ORDERABLE S Performing Organization Address City/State/[facility] Co de Phone Number [facility] [place] [address] * (ABNORMAL) Hemogram (08/28/2023 9:07 PM EDT) WBC 6.8 4.0 - 9.5 x10(3)/[facility] RBC 4.39 4.00 - 5.21 x10(6)/[facility] Hemoglobin 14.1 11.7 - 15.5 g/dL [facility] Hematocrit 42.2 35.7 - 45.8 % [facility] MCV 96.1(H) 82.6 - 94.4 fL [facility] MCH 32.1(H) 27.1 - 32.0 pg [facility] MCHC 33.4 31.7 - 35.0 g/dL [facility] Platelets 234 145 - 357 x10(3)/[facility] RDWSD 47.3(H) 37.0 - 46.0 fL [facility] RDWCV 13.3 11.5 - 14.1 % [facility] MPV 10.3 7.6 - 12.9 [facility] nRBC % Auto 0.0 % [facility] nRBC Abs Auto 0.000 0.000 - 0.000 x10(3)/[facility] Blood 08/28/2023 9:07 PM EDT 08/28/2023 9:12 PM EDT Narrative Resulting Agency Comment Spec In Lab Archie Mcmanus MD HEMATOLOGY ORDERABLE S Performing Organization Address City/State/[facility] Co de Phone Number [facility] [place] [phone] * (ABNORMAL) Heparin (unfractionated) Level (08/28/2023 9:07 PM EDT) Heparin UFH Level 1.90(Crit ical) IU/mL [facility] Comment: Critical Result called by [...] Lab Archie Mcmanus MD HEMATOLOGY ORDERABLE S [facility] [place] [address] * Lipid Panel (Reflex Direct LDL) (08/28/2023 9:07 PM EDT) Chol, Total 203 mg/dL [facility] Comment: Desirable: ? <200 mg/dL Borderline High: 200-239 mg/dL Higher: ?>vn=973 mg/dL Triglycerides 146 mg/dL [facility] Comment: Normal: ?<150 mg/dL Borderline High: 150-199 mg/dL High: ?200-499 mg/dL Very High: ? >pr=142 mg/dL HDL 52 mg/dL [facility] Comment: Females: High Risk: <50 mg/dL Males: High Risk: <40 mg/dL LDL Cholesterol 122 mg/dL [facility] Comment: Desirable: ? <100 mg/dL Above Desirable: 100-129 mg/dL Borderline High: 130-159 mg/dL High: ?160-189 mg/dL Very High: ? >vi=979 mg/dL Lipid Interpretation See Note [facility] Comment: It is important to [...] ACC/AHA Guidelines (most recently Ysabel et al. [facility] 12/09/21): For individuals with atherosclerotic cardiovascular disease (ASCVD)or LDL >mu=661 mg/dL, use a high-intensity statin (40-80 mg [...] In Lab Archie Mcmanus MD CHEMISTRY ORDERABLES [facility] [place] [address] * (ABNORMAL) pro-Brain Natriuretic Peptide (08/28/2023 9:07 PM EDT) [facility] Signature ProBNP 2,854(H) <=124 pg/mL [facility] Blood 08/28/2023 9:07 PM EDT 08/28/2023 9:12 PM EDT Narrative Resulting Agency Comment Spec In Lab Archie Mcmanus MD CHEMISTRY ORDERABLES Performing Organization Address City/[facility]/ZIP Co de Phone Number [facility] [place] [address] * (ABNORMAL) Troponin (08/28/2023 9:07 PM EDT) Troponin-T HS 31(H) <=14 ng/L [facility] Comment: [...] troponin value can be found in the [facility] Test Catalog Troponin - [facility] Test Catalog Reference: Fourth [place] Definition of Myocardial Infarction. Journal of the [place] [employer] 2018;72:5143-4715 Blood 08/28/2023 9:07 PM EDT 08/28/2023 9:12 PM EDT Narrative Resulting Agency Comment Spec In Lab Archie Mcmanus MD CHEMISTRY ORDERABLES [facility] [place] [address] * (ABNORMAL) Hepatic Function Panel (08/28/2023 9:07 PM EDT) Total Protein 6.6 6.1 - 8.0 g/dL [facility] Albumin 4.2 3.2 - 5.2 g/dL [facility] AST 32(H) 0 - 30 unit/L [facility] ALT 28 0 - 30 unit/L [facility] Alk Phos 52 35 - 105 unit/L [facility] Total Bilirubin 0.6 0.2 - 1.3 mg/dL [facility] Bili, Direct 0.2 0.0 - 0.3 mg/dL [facility] Blood 08/28/2023 9:07 PM EDT 08/28/2023 9:12 PM EDT Narrative Resulting Agency Comment Spec In Lab Archie Mcmanus MD CHEMISTRY ORDERABLES [facility] [place] [address] * (ABNORMAL) Basic Metabolic Panel (non-fasting) (08/28/2023 9:07 PM EDT) [facility] Glucose Lvl 95 65 - 199 mg/dL [facility] Comment:Diabetes: >=200 mg/d L plus symptoms BUN 22(H) 8 - 18 mg/dL [facility] Creatinine 1.13 0.70 - 1.20 mg/dL [facility] Sodium 140 135 - 145 mmol/L [facility] Potassium 3.5 3.5 - 5.0 mmol/L [facility] Comment: Please note: ??Patients with WBC >100,000 may have falsely elevated Potassium levels. ??For accurate Potassium quantification in these patients send serum separator tube (gold top) for subsequent determinations. ??Contact the Clinical Chemistry Laboratory if there are any questions. Chloride 105 98 - 107 mmol/L [facility] CO2 21(L) 22 - 31 mmol/L [facility] Anion Gap 14 5 - 15 mmol/L [facility] Calcium 9.3 8.5 - 10.5 mg/dL [facility] Estimated GFR 58(L) >=60 mL/min/1. 73 m?? [facility] Comment: This patient's estimated GFR [...] Mcmanus MD CHEMISTRY ORDERABLES Performing Organization Address City/[facility]/ZIP Co de Phone Number [facility] [place] [address] * Magnesium (08/28/2023 9:07 PM EDT) Magnesium 1.05 0.69 - 1.07 mmol/L [facility] Blood 08/28/2023 9:07 PM EDT 08/28/2023 9:12 PM EDT Narrative Resulting Agency Comment Spec In Lab Archie Mcmanus MD CHEMISTRY ORDERABLES Performing Organization Address City/[facility]/ZIP Co de Phone Number [facility] [place] [address] documented in this encounter Visit Diagnoses Diagnosis [...] mg, Oral, EVERY EVENING, First dose on [facility] 08/28/23 at 2145, Until Discontinued, Routine Given [...] Tim Cardoza RN) 0821 (Given - Provider: Tim Cardoza RN) atorvastatin (Lipitor) tablet 40 mg [...] 25 mg, Oral, DAILY, First dose on [place] 08/29/23 at 0900, Until Discontinued, DO NOT [...] ERWIN) documented in this encounter Care Teams Corporate Controller Relationship Specialty Start Date End Date Polo Pearce PA [address] [place] [address] PCP - General Internal Medicine 06/09/21 documented as of this encounter
--- OUTSIDE RECORDS SUMMARY | 2023-09-20 18:29 | XMS_ITS | Encounter Summary ---
Author Organization [facility] Address [facility] [place] [address] Care Team Providers Care Lodging Facilities Attendant Name Role Phone Polo Pearce Primary Care Provider [phone] Encounter Details Date Type Department Care Team (Latest Contact Info) Description 08/17/2023 Travel Social History Tobacco Use Types Packs/Day Years Used Date Smoking Tobacco: Never Smokeless Tobacco: Never Alcohol Use Standard Drinks/Week Comments Never 0 (1 standard drink = 0.6 oz pur e alcohol) [facility] Utilities Answer Date Recorded In [...] in a custodial (including now)? No 06/15/2023 [facility] Inpatient Questions Answer Date Recorded Does Anyone [...] AM EDT Tech [place] [address] Jose Cook 10/08/2023 9:30 AM EDT Office [place] [address] MD [facility] [place] [address] 10/21/2023 10:30 AM EDT Appointment [place] [address] Mary Reyes [facility] [place] [address] 10/21/2023 11:30 AM EDT Appointment [place] [phone] Mary Reyes TELECOM SPECIALIST [facility] [place] [address] 10/21/2023 12:30 PM EDT Appointment [place] [address] Mary Reyes, [facility] [place] [address] 10/21/2023 1:30 PM EDT Appointment [place] [address] Mary Reyes, [facility] [place] [address] 10/21/2023 2:30 PM EDT Appointment [place] [address] Mary Reyes, [facility] [place] [address] 10/26/2023 4:00 PM EDT Office Visit Cardiology at [address] [phone] Jaspreet Kinsey [place] [address] 10/28/2023 9:00 AM EDT Office [place] [address] 10/29/2023 10:00 AM EDT Clinical [place] [address] 10/29/2023 10:15 AM EDT Procedure [place] [address] 11/01/2023 5:00 PM EDT Office [place] [address] Selene Browning, PhD [facility] [place] [place] [address] 11/22/2023 4:40 PM EDT Office Visit Cardiology at [address] [phone] Porsha Mcdaniels MD [facility] [place] [address] 12/13/2023 10:00 AM EDT Clinical [place] [phone] [facility] [place] [address] documented as of this encounter Visit Diagnoses Not on filedocumented in this encounter Care Teams Lodging Facilities Attendant Relationship Specialty Start Date End Date Polo Pearce PA [address] [place] [address] PCP - General Internal Medicine 06/09/21 documented as of this encounter
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
--- OUTSIDE RECORDS SUMMARY | 2023-09-20 18:29 | XMS_ITS | Encounter Summary ---
[place] [address] Care Team Providers Care Gas Reverser Name Role Phone Polo Pearce Primary Care Provider [phone] Reason for Visit * Auth/Cert (Routine) Specialty Diagnoses / Procedures Referred By Jayant harris Referred To Contact Diagnoses NSTEMI (non-ST elevated myocardial infarction) NSTEMI Procedures EMERGENCY [place] [address] [facility] Referral ID Status Reason Start Date Expiration Date Visits Re quested Visits Authorized [id number] 1 1 Encounter Details Date Type Department Care Team (Latest Contact Info) Description 08/25/2023 1:05 PM EDT Laboratory Appointment Lab [address] [place] [address] Heart failure with preserved ejection fraction, unspecified [...] Recorded In the past 12 months has [employer], gas, oil, or water company threatened [...] a care home (including now)? No 06/15/2023 IPV Inpatient Questions [...] AM EDT Tech [place] [address] Jose Cook 10/08/2023 9:30 AM EDT Office [place] [phone] MD [facility] [place] [address] 10/21/2023 10:30 AM EDT Appointment Nuclear Medicine at [place] [phone] Mary Reyes [facility] [place] [address] 10/21/2023 11:30 AM EDT Appointment Nuclear Medicine at [place] [phone] Mary Reyes [facility] [place] [address] 10/21/2023 12:30 PM EDT Appointment [place] [phone] Mary Reyes [facility] [place] [address] 10/21/2023 1:30 PM EDT Appointment Nuclear Medicine at [place] [phone] Mary Reyes [facility] [place] [address] 10/21/2023 2:30 PM EDT Appointment [place] [address] Mary Reyes [facility] [place] [address] 10/26/2023 4:00 PM EDT Office Visit Cardiology at [address] [phone] Jaspreet Kinsey MD [facility] [place] [address] 10/28/2023 9:00 AM EDT Office [place] [address] 10/29/2023 10:00 AM EDT Clinical Support [place] [address] 10/29/2023 10:15 AM EDT Procedure visit [place] [address] 11/01/2023 5:00 PM EDT Office [place] [phone] Selene Browning, PhD [facility] [place] [address] 11/22/2023 4:40 PM EDT Office Visit Cardiology at [address] [phone] Porsha Mcdaniels MD [facility] [place] [address] 12/13/2023 10:00 AM EDT Clinical [place] [phone] Lucero Romero, ALVA [facility] [place] [address] documented as of this encounter Procedures Procedure [...] unspecified HF chronicity HC DNA AB DS ([facility]) Routine 08/25/2023 11:28 AM EDT Heart failure [...] EDT) IgA 372 70 - 400 mg/dL [facility] Blood 08/25/2023 11:2 8 AM EDT 08/25/2023 11:37 AM EDT Narrative Resulting Agency Comment Spec In Lab Mary Reyes CAPTAIN FISHING VESSEL IMMUNOLOGY ORDERAB LES [facility] [place] [address] * IgG (08/25/2023 11:28 AM EDT) Pathologist [facility] IgG 1,114 700 - 1,600 mg/dL [facility] Comment: Pediatric Reference Intervals obtained from the Caliper Reference Interval project. http://www.[employer].ca/caliperproject/index.html Blood 08/25/2023 11:2 8 AM EDT 08/25/2023 11:37 AM EDT Narrative Resulting Agency Comment Spec In Lab [place] APRN IMMUNOLOGY ORDERAB LES Performing Organization Address [facility] Co de Phone Number [facility] [place] [address] * Tissue transglutaminase, IgA (08/25/2023 11:28 AM EDT) [facility] TTG IgA Ab 0.6 <=10.0 u/ml [facility] Comment: Negative: ??<7 units/mL Indeterminate: 7-10 units/mL Positive: ??>10 units/mL Blood 08/25/2023 11:2 8 AM EDT 08/26/2023 7:26 AM EDT Narrative Resulting Agency Comment Spec In Lab [place] APRN IMMUNOLOGY ORDERAB LES Performing Organization Address [facility] Co de Phone Number [facility] [place] [address] * (ABNORMAL) Basic Metabolic Panel (non-fasting) (08/25/2023 11:28 AM EDT) [facility] Glucose Lvl 111 65 - 199 mg/dL [facility] Comment:Diabetes: >=200 mg/d L plus symptoms BUN 29(H) 8 - 18 mg/dL [facility] Creatinine 1.41(H) 0.70 - 1.20 mg/dL [facility] Sodium 140 135 - 145 mmol/L [facility] Potassium 3.6 3.5 - 5.0 mmol/L [facility] Comment: Please note: ??Patients with WBC >100,000 may have falsely elevated Potassium levels. ??For accurate Potassium quantification in these patients send serum separator tube (gold top) for subsequent determinations. ??Contact the Clinical Chemistry Laboratory if there are any questions. Chloride 99 98 - 107 mmol/L [facility] CO2 29 22 - 31 mmol/L [facility] Anion Gap 12 5 - 15 mmol/L [facility] Calcium 10.0 8.5 - 10.5 mg/dL [facility] Estimated GFR 44(L) >=60 mL/min/1. 73 m?? [facility] Comment: This patient's estimated [...] In Lab Lloyd Keating MD CHEMISTRY ORDERABLES [facility] [place] [address] * KATHRINE Antibody Screen (08/25/2023 11:28 AM EDT) Antinuclear Ab Negative Negative [facility] Comment: This antinuclear antibody (KATHRINE) screen is a qualitative test performed using a fluoroenzyme immunoassay on the Xcelaero 250 analyzer. This screen is designed to detect antibodies to U1RNP, SS-A/Ro, SS-B/La, centromere B, Scl-70, Dasia-1, and Sm(Alcantar) proteins in serum samples. Antibodies to other nuclear antibodies will not be detected with this assay. This KATHRINE screen is also performed in concert with a quantitative for IgG antibodies to dsDNA. dsDNA Ab 1.0 <=15.0 IU/mL [facility] Comment: <10 negative 10-15 equivocal >15 positive This dsDNA antibody result was generated using a fluoroenzyme immunoassay on the Xcelaero 250 analyzer. This quantitative test is designed to detect IgG antibodies directed against double stranded DNA in human serum. The presence of antibodies that recognize dsDNA is a highly specific marker for systemic lupus erythematosus. Please note that as of 12/30/2021 that this testing is performed by the Special Chemistry Laboratory at [facility]. This change in testing location is associated with a change is testing method and reference intervals. Please review the results of this test in association with the posted reference intervals. Blood 08/25/2023 11:2 8 AM EDT 08/26/2023 7:26 AM EDT Narrative Resulting Agency Comment Spec In Lab Jaspreet Kinsey MD IMMUNOLOGY ORDERABLE S [facility] [place] [address] * (ABNORMAL) Protein Electrophoresis, serum (08/25/2023 11:28 AM EDT) Total Prot Elec 7.5 6.1 - 8.0 g/dL [facility] Albumin Elect 4.62 3.20 - 5.20 g/dL [facility] Alpha1-Globul in 0.20 0.10 - 0.30 g/dL [facility] Alpha2-Globul in 0.92(H) 0.40 - 0.90 g/dL [facility] Beta Globulin 0.89 0.50 - 1.00 g/dL [facility] Gamma Globulin 0.88 0.50 - 1.30 g/dL [facility] M1 Band None Detected None Detected [facility] Blood 08/25/2023 11:2 8 AM EDT 08/25/2023 11:37 AM EDT Narrative Resulting Agency Comment Spec In Lab Jaspreet Kinsey MD CHEMISTRY ORDERABLES Performing Organization Address City/[facility]/ZIP Co de Phone Number [facility] [place] [address] * (ABNORMAL) Free Light Chains, Serum (08/25/2023 11:28 AM EDT) [place] Free Light Chain 3.09(H) 0.72 - 2.75 mg/dL [facility] Lambda Free Light Chain 1.65 0.57 - 2.15 mg/dL [facility] [place] Lambda FLC Ratio 1.8727 0.4000 - 2.5800 [facility] Blood 08/25/2023 11:2 8 AM EDT 08/25/2023 11:36 AM EDT Narrative Resulting Agency Comment Spec In Lab Jaspreet Kinsey MD CHEMISTRY ORDERABLES Performing Organization Address [facility]/ZIP Co de Phone Number [facility] [place] [address] * Iron and TIBC (08/25/2023 11:28 AM EDT) Iron 113 30 - 150 mcg/dL [facility] TIBC 338 250 - 450 mcg/dL [facility] Iron Saturation 33 20 - 50 % [facility] Blood 08/25/2023 11:2 8 AM EDT 08/25/2023 11:36 AM EDT Narrative Resulting Agency Comment Spec In Lab Jaspreet Kinsey MD CHEMISTRY ORDERABLES Performing Organization Address City/[facility]/ZIP Co de Phone Number [facility] [place] [address] * Ferritin (08/25/2023 11:28 AM EDT) Ferritin 110 11 - 328 ng/mL [facility] Comment: Please note that as of 02/10/2023, the reference intervals for Ferritin have been updated. Blood 08/25/2023 11:2 8 AM EDT 08/25/2023 11:37 AM EDT Narrative Resulting Agency Comment Spec In Lab Jaspreet Kinsey MD CHEMISTRY ORDERABLES Performing Organization Address [facility]/ZIP Co de Phone Number [facility] [place] [address] * Lyme IgG & IgM Antibody (08/25/2023 11:28 AM EDT) [facility] Lyme Screening Antibody Negative Negative [facility] Lyme Ab Comment Negative result does not exclude possibility of infection. [facility] Comment: Please note that as of 07/14/2022 that this testing is performed by the Special Chemistry Laboratory at [facility]. This change in testing location is associated with a change in testing methodology. Blood 08/25/2023 11:2 8 AM EDT 08/26/2023 7:26 AM EDT Narrative Resulting Agency Comment Spec In Lab Jaspreet Kinsey MD IMMUNOLOGY ORDERABLE S Performing Organization Address [facility] Co de Phone Number [facility] [place] [address] * Streptococcal Antibody Panel (08/25/2023 11:28 AM EDT) [facility] ASO Titer 25 0 - 530 IU/mL [facility] Comment: Test Performed by: [facility] [place] [address] Tube Tester: Nellie Haney Ph.D.; CLIA# [id number] DNase B Ab 146 0 - 300 unit/mL [facility] Comment: Test Performed by: [facility] [place] [address] Tube Tester: Nellie Haney Ph.D.; CLIA# [id number] Blood 08/25/2023 11:2 8 AM EDT 08/25/2023 1:02 PM EDT Narrative Resulting Agency Comment Spec In Lab Jaspreet Kinsey [place] [address] documented in this encounter Visit Diagnoses Diagnosis Heart failure with preserved ejection fraction, unspecified HF chronicity Chronic kidney disease, unspecified CKD stage Altered bowel function Other symptoms involving digestive system Depression, unspecified depression type documented in this encounter Care Teams Gas Reverser Relationship Specialty Start Date End Date Polo Pearce PA [address] [place] [address] PCP - General Internal Medicine 06/09/21 documented as of this encounter
--- OUTSIDE RECORDS SUMMARY | 2023-09-20 18:29 | XMS_ITS | Encounter Summary ---
Author Organization [facility] Address [facility] [place] [address] Care Team Providers Care Veterans Contact Representative Name Role Phone Polo Pearce Primary Care Provider [phone] Encounter Details Date Type Department Care Team (Late st Contact Info) Description 08/28/2023 1:05 PM EDT Ancillary Procedure [place] [address] Jaspreet Kinsey MD [facility] [place] [address] Social History Tobacco Use Types Packs/Day Years Used Date Smoking Tobacco: Never Smokeless Tobacco: Never Alcohol Use Standard Drinks/Week Comments Never 0 (1 standard drink = 0.6 oz pur e alcohol) [facility] Utilities Answer Date Recorded In the past 12 months has [employer], gas, oil, or water [employer] threatened to shut off services in your [...] in a usp (including now)? No 06/15/2023 IPV Inpatient Questions [...] AM EDT Tech [place] [phone] Jose Cook 10/08/2023 9:30 AM EDT Office Visit [place] [address] MD [facility] [place] [address] 10/21/2023 10:30 AM EDT Appointment Nuclear Medicine at [place] [phone] Mary Reyes APRN [facility] [place] [address] 10/21/2023 11:30 AM EDT Appointment [place] [address] Mary Reyes, [facility] [place] [address] 10/21/2023 12:30 PM EDT Appointment [place] [address] Mary Reyes, [facility] [place] [address] 10/21/2023 1:30 PM EDT Appointment [place] [address] Mary Reyes, [facility] [place] [address] 10/21/2023 2:30 PM EDT Appointment [place] [address] Mary Reyes, [facility] [place] [address] 10/26/2023 4:00 PM EDT Office Visit Cardiology at [address] [phone] Jaspreet Kinsey MD [facility] [place] [address] 10/28/2023 9:00 AM EDT Office Visit [place] [address] 10/29/2023 10:00 AM EDT Clinical Support [place] [address] 10/29/2023 10:15 AM EDT Procedure visit [place] [address] 11/01/2023 5:00 PM EDT Office Visit [place] [address] Selene Browning, PhD [facility] [place] [address] 11/22/2023 4:40 PM EDT Office Visit Cardiology at [place] [phone] Porsha Mcdaniels MD [facility] [place] [address] 12/13/2023 10:00 AM EDT Clinical Support [place] [address] [facility] [place] [address] documented as of this encounter Procedures Procedure Name Priority Date/Time Associated Diagnosis Comments FILM LIBRARY STORAGE ONLY CT CHEST Routine 08/28/2023 1:00 PM EDT documented in this encounter Results * Film Library- Storage Only CT Chest (08/28/2023 1:00 PM EDT) Narrative [facility] - 08/28/2023 1:00 PM EDT This exam is auto-finalizing. It's purpose is for storage only. Jaspreet Kinsey MD IMG FILM LIBRARY ORD ERABLES [place], [place] documented in this encounter Visit Diagnoses Not on filedocumented in this encounter Care Teams Veterans Contact Representative Relationship Specialty Start Date End Date Polo Pearce PA [address] [place] [address] PCP - General Internal Medicine 06/09/21 documented as of this encounter
--- OUTSIDE RECORDS SUMMARY | 2023-09-20 18:29 | XMS_ITS | Encounter Summary ---
Author Organization [facility] [place] [address] Care Team Providers Care Principal Network Engineer Name Role Phone Polo Pearce Primary Care Provider [phone] Reason for Referral * Diagnostic Test (Routine) - New Request Specialty Diagnoses / Procedures Referred By Contjulita t Referred To Contact Cardiology Diagnoses Chest pain, unspecified type Procedures Nuclear Pharmacologic Stress Cardiology (PET CT Mobile) Porsha Mcdaniels MD [facility] [place] [place] [address] [facility] [place] [address] Referral ID Status Reason Start Date Expiration Date Visits Requested Visits Authorized [id number] New Request Specialty Service Requested 07/29/2023 07/28/2024 1 1 Reason for Visit * Diagnostic Test (Routine) - New Request Specialty Diagnoses / Procedures Referred By Contac t Referred To Contact Cardiology Diagnoses Chest pain, unspecified type Procedures Nuclear Pharmacologic Stress Cardiology (PET CT Mobile) Porsha Mcdaniels MD [facility] [place] [address] [facility] [place] [address] Referral ID Status Reason Start Date Expiration Date Visits Requested Visits Authorized [id number] New Request Specialty Service Requested 07/29/2023 07/28/2024 1 1 Encounter Details Date Type Department Care Team (Latest Contact Info) Description 08/17/2023 11:53 AM EDT - 08/17/2023 11:59 PM EDT Hospital Encounter Non-Invasive Cardiology Lab [facility] [place] [address] Porsha Mcdaniels MD [facility] [place] [address] Chest pain, unspecified type Discharge Disposition: Home Social History Tobacco Use Types Packs/Day Years Used Date Smoking Tobacco: Never Smokeless Tobacco: Never Alcohol Use Standard Drinks/Week Comments Never 0 (1 standard drink = 0.6 oz pur e alcohol) [facility] Utilities Answer Date Recorded In the past 12 months has th e [employer], gas, oil, or water [employer] threatened to shut off services in your [...] in a residential (including now)? No 06/15/2023 DH IPV Inpatient [...] as needed. fluticasone propionate (FLONASE) 50 mcg/actuation [place], Suspension 1 spray by Each Nare route [...] AM EDT Tech [place] [address] Jose Cook 10/08/2023 9:30 AM EDT Office [place] [address] MD [facility] [place] [address] 10/21/2023 10:30 AM EDT Appointment Nuclear Medicine at [address] Mary Reyes, [facility] [place] [address] 10/21/2023 11:30 AM EDT Appointment Nuclear Medicine at [address]1000 Mary Reyes [facility] [place] [place] [address] 10/21/2023 12:30 PM EDT Appointment [place] [address] Mary Reyes [facility] [place] [address] 10/21/2023 1:30 PM EDT Appointment [place] [address] aMry Reyes [facility] [place] [address] 10/21/2023 2:30 PM EDT Appointment [place] [address] Mary Reyes [facility] [place] [address] 10/26/2023 4:00 PM EDT Office Visit Cardiology at [address] [place] [address] Jaspreet Kinsey MD [facility] [place] [address] 10/28/2023 9:00 AM EDT Office [place] [address] 10/29/2023 10:00 AM EDT Clinical [place] [address] 10/29/2023 10:15 AM EDT Procedure [place] [address] 11/01/2023 5:00 PM EDT Office [place] [phone] Selene Browning, PhD [facility] [place] [address] 11/22/2023 4:40 PM EDT Office Visit Cardiology at [address] [phone] Porsha Mcdaniels MD [facility] [place] [address] 12/13/2023 10:00 AM EDT Clinical [place] [address]-[address] [facility] [place] [address] documented as of this encounter Procedures Procedure [...] type documented in this encounter Care Teams Principal Network Engineer Relationship Specialty Start Date End Date Polo Pearce PA [address] [place] [address] PCP - General Internal Medicine 06/09/21 documented as of this encounter
--- OUTSIDE RECORDS SUMMARY | 2023-09-20 18:30 | XMS_ITS | Encounter Summary ---
Author Organization [facility] Address [facility] [place] [address] Care Team Providers Care Filter Plant Supervisor Name Role Phone Polo Pearce Primary Care Provider [phone] Reason for Visit * Reason Comments Congestive Heart Failure Atrial Fibrillation Encounter Details Date Type Department Care Team (Late st Contact Info) Description 07/26/2023 3:20 PM EDT Office Visit Cardiology at [address] [phone] [facility] [place] [address] Heart failure with preserved ejection fraction, unspecified HF chronicity; Paroxysmal atrial fibrillation; SVT (supraventricular tachycardia); Chest pain, unspecified type Social History Tobacco Use Types Packs/Day Years Used Date Smoking Tobacco: Never Smokeless Tobacco: Never Alcohol Use Standard Drinks/Week Comments Never 0 (1 standard drink = 0.6 oz pur e alcohol) [facility] Utilities Answer Date Recorded In the past [...] Failure Atrial Fibrillation HPI Last seen by ct 05/2023, at which time the comprehensive cardiac [...] Oral, DAILY fluticasone propionate (FLONASE) 50 mcg/actuation [place], Suspension 1 spray, Each Nare, PRN gabapentin [...] preserved ejection fraction 05/2021: subacute, presented to [facility] with RUQ pain, weight gain, and [...] sarcoid. Anterior scar pattern 06/2023: Admission [place] [facility] ([facility]). TTE with low-normal EF, though anterior [...] AM EDT Tech Visit Vascular Lab at [place] [phone] Jose Cook 10/08/2023 9:30 AM EDT Office [place] [phone] MD [facility] [place] [address] 10/21/2023 10:30 AM EDT Appointment [place] [address] Mary Reyes APRN [facility] [place] [address] 10/21/2023 11:30 AM EDT Appointment [place] [address] Mary Reyes, [facility] [place] [address] 10/21/2023 12:30 PM EDT Appointment [place] [address] Mary Reyes [facility] [place] [address] 10/21/2023 1:30 PM EDT Appointment [place] [address] Mary Reyes [facility] [place] [address] 10/21/2023 2:30 PM EDT Appointment [place] [address] Mary Reyes [facility] [place] [address] 10/26/2023 4:00 PM EDT Office Visit Cardiology at [address] [phone] Jaspreet Kinsey MD [facility] [place] [address] 10/28/2023 9:00 AM EDT Office [place] [address] 10/29/2023 10:00 AM EDT Clinical Support [place] [address] 10/29/2023 10:15 AM EDT Procedure [place] [address] 11/01/2023 5:00 PM EDT Office Visit [place] [address] Selene Browning, PhD [facility] [place] [address] 11/22/2023 4:40 PM EDT Office Visit Cardiology at [place] [phone] Porsha Mcdaniels MD [facility] [place] [address] 12/13/2023 10:00 AM EDT Clinical Support [place] [phone] Lucero Romero, [place] [facility] [place] [address] documented as of this encounter Visit Diagnoses Diagnosis Heart failure with preserved ejection fraction, unspecified HF chronicity Paroxysmal atrial fibrillation Atrial fibrillation SVT (supraventricular tachycardia) Other specified cardiac dysrhythmias Chest pain, unspecified type documented in this encounter Care Teams Filter Plant Supervisor Relationship Specialty Start Date End Date Polo Pearce PA [address] [place] [address] PCP - General Internal Medicine 06/09/21 documented as of this encounter
--- OUTSIDE RECORDS SUMMARY | 2023-09-20 18:30 | XMS_ITS | Encounter Summary ---
Author Organization [facility] Address [facility] [place] [address] Care Team Providers Care Fugitive Detective Name Role Phone Polo Pearce Primary Care Provider [phone] Encounter Details Date Type Department Care Team (Latest Contact Info) Description 08/03/2023 Travel Social History Tobacco Use Types Packs/Day Years Used Date Smoking Tobacco: Never Smokeless Tobacco: Never Alcohol Use Standard Drinks/Week Comments Never 0 (1 standard drink = 0.6 oz pur e alcohol) [facility] Utilities Answer Date Recorded In [...] a nursing home (including now)? No 06/15/2023 [facility] Inpatient Questions Answer Date Recorded Does Anyone [...] AM EDT Tech [place] [address] Jose Cook 10/08/2023 9:30 AM EDT Office [place] [address] MD [facility] [place] [address] 10/21/2023 10:30 AM EDT Appointment Nuclear Medicine [place] [address] Mary Reyes [facility] [place] [address] 10/21/2023 11:30 AM EDT Appointment Nuclear Medicine [place] [address] Mary Reyes ELASTIC TAPE INSERTER [facility] [place] [address] 10/21/2023 12:30 PM EDT Appointment Nuclear Medicine [place] [address] Mary Reyes, [facility] [place] [address] 10/21/2023 1:30 PM EDT Appointment Nuclear Medicine [place] [address] Mary Reyes, [facility] [place] [address] 10/21/2023 2:30 PM EDT Appointment Nuclear Medicine [place] [address] Mary Reyes, [facility] [place] [address] 10/26/2023 4:00 PM EDT Office Visit Cardiology at [address] [phone] Jaspreet Kinsey MD [facility] [place] [address] 10/28/2023 9:00 AM EDT Office [place] [address] 10/29/2023 10:00 AM EDT Clinical [place] [address] 10/29/2023 10:15 AM EDT Procedure [place] [address] 11/01/2023 5:00 PM EDT Office [place] [address] Selene Browning, PhD [facility] [place] [address] 11/22/2023 4:40 PM EDT Office Visit Cardiology at [address] [phone] Porsha Mcdaniels MD [facility] [place] [address] 12/13/2023 10:00 AM EDT Clinical Support [place] [phone] [facility] [place] [address] documented as of this encounter Visit Diagnoses Not on filedocumented in this encounter Care Teams Fugitive Detective Relationship Specialty Start Date End Date Polo Pearce PA [address] [place] [address] PCP - General Internal Medicine 06/09/21 documented as of this encounter
--- OUTSIDE RECORDS SUMMARY | 2023-09-20 18:30 | XMS_ITS | Encounter Summary ---
Author Organization [facility] Address [facility] [place] [address] Care Team Providers Care Cisco Certified Network Professional Name Role Phone Polo Pearce Primary Care Provider [phone] Encounter Details Date Type Department Care Team [...] a long term (including now)? No 06/15/2023 [facility] Inpatient Questions Answer Date Recorded Does Anyone [...] AM EDT Tech [place] [address] Jose Cook 10/08/2023 9:30 AM EDT Office Visit [place] [address] MD [facility] [place] [address] 10/21/2023 10:30 AM EDT Appointment [place] [address] Mary Reyes [facility] [place] [address] 10/21/2023 11:30 AM EDT Appointment [place] [phone] Mary Reyes HUMANE OFFICER [facility] [place] [address] 10/21/2023 12:30 PM EDT Appointment [place] [address] Mary Reyes, [facility] [place] [address] 10/21/2023 1:30 PM EDT Appointment [place] [address] Mary Reyes, [facility] [place] [address] 10/21/2023 2:30 PM EDT Appointment [place] [address] Mary Reyes, [facility] [place] [address] 10/26/2023 4:00 PM EDT Office Visit Cardiology at [address] [phone] Jaspreet Kinsey MD [facility] [place] [address] 10/28/2023 9:00 AM EDT Office Visit [place] [address] 10/29/2023 10:00 AM EDT Clinical Support [place] [address] 10/29/2023 10:15 AM EDT Procedure visit [place] [address] 11/01/2023 5:00 PM EDT Office [place] [address] Selene Browning, PhD [facility] [place] [address] 11/22/2023 4:40 PM EDT Office Visit Cardiology at [address] [phone] Porsha Mcdaniels MD [facility] [place] [address] 12/13/2023 10:00 AM EDT Clinical Support [place] [phone] [facility] [place] [address] documented as of this encounter Visit Diagnoses Not on filedocumented in this encounter Care Teams Cisco Certified Network Professional Relationship Specialty Start Date End Date Polo Pearce PA [address] [place] [address] PCP - General Internal Medicine 06/09/21 documented as of this encounter
--- OUTSIDE RECORDS SUMMARY | 2023-09-20 18:30 | XMS_ITS | Encounter Summary ---
[place] [address] Care Team Providers Care Stereo Equipment Salesperson Name Role Phone Polo Pearce Primary Care Provider [phone] Reason for Referral * Diagnostic Test (Routine) - New Request Specialty Diagnoses / Procedures Referred By Jayant harris Referred To Contact Diagnoses Mesenteric ischemia Procedures Duplex Study Visceral Arteries, Comp Judith Butler APRN [facility] [place] [address] [facility] Vascular Lab [address] [place] [phone] Referral ID Status Reason Start Date Expiration Date Visits Requested Visits Authorized [id number] New Request Specialty Service Requested 08/03/2023 08/02/2024 1 1 Encounter Details Date Type Department Care Team (Late st Contact Info) Description 08/03/2023 9:30 AM EDT Office Visit [place] [address] Judith Butler APRN [facility] [place] [address] Mesenteric ischemia Social History Tobacco Use Types Packs/Day Years Used Date Smoking Tobacco: Never Smokeless Tobacco: Never Alcohol Use Standard Drinks/Week Comments Never 0 (1 standard drink = 0.6 oz pur e alcohol) [facility] Utilities Answer Date Recorded In the [...] slept in a fpc (including now)? No 06/15/2023 [facility] Inpatient [...] as needed. fluticasone propionate (FLONASE) 50 mcg/actuation [place], Suspension 1 spray by Each Nare route [...] Text Report Department: Vascular Surgery Lab Patient: [id number] (ROHAN, MELINDA) CPT: [id number] Referring Physician: MAMIE LARRY Phone: Indications: S/p SMA stenting (07/01) one month f/u, ? patency Findings: Unilateral Waveform PSV cm/s EDV cm/s Patent Dary Visceral Aorta 71 14 Celiac Artery, Proximal Collin-Biphasic 100 22 Celiac Artery, Mid Collin-Biphasic 99 19 Celiac Artery, Distal Collin-Biphasic 94 18 Sup Mes Artery Proximal Bi-Triphasic [...] within mesenteric artery stents may differ from eek arteries, with thresholds for diagnosis of significant stenosis likely being somewhat higher in stented arteries than eek.% To date, there is no evidence based consensus of stent velocity criteria. Therefore, the curre nt interpretation is based on eek artery thresholds. Previous Celiac/Mesenteric Studies: Date SMA PSV EDV Celiac PSV EDV 427 91 339 38 2902/04/29 289 27 116 20 Current Exam 316 [...] Time Provider Department Center 08/17/2023 1:[address] [facility] NM PET MOBILE MH Nuc Med [facility] Rad 08/25/2023 10:00 AM Mary Reyes APRN [facility] GASTRO [facility] 10/26/2023 4:00 PM Jaspreet Kinsey MD [facility] Cardio [facility] 11/22/2023 4:40 PM Porsha Mcdaniels MD [facility] CARD 4A [facility] Judith Butler APRN Department of Vascular Surgery documented in this encounter Plan of Treatment Upcoming Encounters Date Type Department Care Team (Late st Contact Info) Description 10/08/2023 8:30 AM EDT Tech [place] [address] Jose Cook 10/08/2023 9:30 AM EDT Office Visit [place] [address] MD [facility] [place] [address] 10/21/2023 10:30 AM EDT Appointment [place] [address] Mary Reyes DRAFTER ELECTRICAL [facility] [place] [address] 10/21/2023 11:30 AM EDT Appointment [place] [address] Mary Reyes [facility] [place] [address] 10/21/2023 12:30 PM EDT Appointment [place] [address] Mary Reyes, [facility] [place] [address] 10/21/2023 1:30 PM EDT Appointment [place] [address] Mary Reyes [facility] [place] [address] 10/21/2023 2:30 PM EDT Appointment [place] [address] Mary Reyes, [facility] [place] [address] 10/26/2023 4:00 PM EDT Office Visit Cardiology at [address] [phone] Jaspreet Kinsey MD [facility] [place] [address] 10/28/2023 9:00 AM EDT Office Visit [place] [address] 10/29/2023 10:00 AM EDT Clinical Support [place] [address] 10/29/2023 10:15 AM EDT Procedure visit [place] [address] 11/01/2023 5:00 PM EDT Office Visit [place] [phone] Selene Browning, [facility] [place] [address] 11/22/2023 4:40 PM EDT Office Visit Cardiology at [address] [phone] Porsha Mcdaniels MD [facility] [place] [address] 12/13/2023 10:00 AM EDT Clinical Support [place] [address]-[address] [facility] [place] [address] documented as of this encounter Visit Diagnoses Diagnosis Mesenteric ischemia Unspecified vascular insufficiency of intestine documented in this encounter Care Teams Stereo Equipment Salesperson Relationship Specialty Start Date End Date Polo Pearce PA [address] [place] [address] PCP - General Internal Medicine 06/09/21 documented as of this encounter
--- OUTSIDE RECORDS SUMMARY | 2023-09-20 18:30 | XMS_ITS | Encounter Summary ---
Author Organization [facility] [place] [address] Care Team Providers Care Change Management Specialist Name Role Phone Polo Pearce Primary Care Provider [phone] Encounter Details Date Type Department Care Team (Late st Contact Info) Description 07/13/2023 Telephone Cardiology at [address] [phone] Sydney Gamez RN Social History Tobacco Use Types Packs/Day Years Used Date Smoking Tobacco: Never Smokeless Tobacco: Never Alcohol Use Standard Drinks/Week Comments Never 0 (1 standard drink = 0.6 oz pur e alcohol) [facility] Utilities Answer Date Recorded In the past [...] like the letter [email or web address] when completed. Will forward to her providers [...] appointments: During 8am-5pm Wednesday through Wednesday call [phone] to speak with a nurse in the cardiology clinic All other times call [phone] and ask to speak to the english composition instructor intercell connector placer. Return to work: One week Driving: No driving for 48 hours after catheterization. Follow up Appointments: PCP OJCY Franco [phone] 11:30am on July 19. Cardiology office will [...] AM EDT Tech Visit Vascular Lab at [place] [phone] Jose Cook 10/08/2023 9:30 AM EDT Office [place] [address] MD [facility] [place] [address] 10/21/2023 10:30 AM EDT Appointment Nuclear Medicine at [place] [phone] Mary Reyes [facility] [place] [address] 10/21/2023 11:30 AM EDT Appointment [place] [address] Mary Reyes [facility] [place] [address] 10/21/2023 12:30 PM EDT Appointment [place] [address] Mary Reyes [facility] [place] [address] 10/21/2023 1:30 PM EDT Appointment Nuclear Medicine at [place] [phone] Mary Reyes, [place] [facility] [place] [address] 10/21/2023 2:30 PM EDT Appointment Nuclear Medicine at [place] [phone] Mary Reyes APRN [facility] [place] [address] 10/26/2023 4:00 PM EDT Office Visit Cardiology at [address] [phone] Jaspreet Kinsey MD [facility] [place] [address] 10/28/2023 9:00 AM EDT Office [place] [address] 10/29/2023 10:00 AM EDT Clinical [place] [address] 10/29/2023 10:15 AM EDT Procedure [place] [address] 11/01/2023 5:00 PM EDT Office Visit Gastroenterology at [place] [phone] Selene Browning, PhD [facility] [place] [address] 11/22/2023 4:40 PM EDT Office Visit Cardiology at [address] [address] Porsha Mcdaniels MD [facility] [place] [address] 12/13/2023 10:00 AM EDT Clinical [place] [address] Lucero Romero, [place] [facility] [place] [address] documented as of this encounter Visit Diagnoses Not on filedocumented in this encounter Care Teams Change Management Specialist Relationship Specialty Start Date End Date Polo Pearce PA [address] [place] [address] PCP - General Internal Medicine 06/09/21 documented as of this encounter
--- OUTSIDE RECORDS SUMMARY | 2023-09-20 18:30 | XMS_ITS | Encounter Summary ---
Author Organization [facility] Address [facility] [place] [address] Care Team Providers Care Cost Consultant Name Role Phone Polo Pearce Primary Care Provider [phone] Encounter Details Date Type Department Care Team (Latest Contact Info) Description 07/29/2023 Travel Social History Tobacco Use Types Packs/Day Years Used Date Smoking Tobacco: Never Smokeless Tobacco: Never Alcohol Use Standard Drinks/Week Comments Never 0 (1 standard drink = 0.6 oz pur e alcohol) [facility] Utilities Answer Date Recorded In the past [...] in a half-way (including now)? No 06/15/2023 [facility] Inpatient Questions Answer Date [...] AM EDT Tech [place] [address] Jose Cook 10/08/2023 9:30 AM EDT Office Visit [place] [address] [facility] [place] [address] 10/21/2023 10:30 AM EDT Appointment [place] [address] Mary Reyes [facility] [place] [address] 10/21/2023 11:30 AM EDT Appointment [place] [phone] Mary Reyes [facility] [place] [address] 10/21/2023 12:30 PM EDT Appointment [place] [address] Mary Reyes, [facility] [place] [address] 10/21/2023 1:30 PM EDT Appointment [place] [address] Mary Reyes, [facility] [place] [address] 10/21/2023 2:30 PM EDT Appointment [place] [address] Mary Reyes, [facility] [place] [address] 10/26/2023 4:00 PM EDT Office Visit Cardiology at [address] [phone] Jaspreet Kinsey MD [facility] [place] [address] 10/28/2023 9:00 AM EDT Office [place] [address] 10/29/2023 10:00 AM EDT Clinical [place] [address] 10/29/2023 10:15 AM EDT Procedure [place] [address] 11/01/2023 5:00 PM EDT Office Visit [place] [address] Selene Browning, PhD [facility] [place] [address] 11/22/2023 4:40 PM EDT Office Visit Cardiology at [address] [phone] Porsha Mcdaniels MD [facility] [place] [address] 12/13/2023 10:00 AM EDT Clinical Support [place] [phone] [facility] [place] [address] documented as of this encounter Visit Diagnoses Not on filedocumented in this encounter Care Teams Cost Consultant Relationship Specialty Start Date End Date Polo Pearce PA [address] [place] [address] PCP - General Internal Medicine 06/09/21 documented as of this encounter
--- OUTSIDE RECORDS SUMMARY | 2023-09-20 18:30 | XMS_ITS | Encounter Summary ---
[place] [address] Care Team Providers Care Electric Sign Wirer Name Role Phone Polo Pearce Primary Care Provider [phone] Encounter Details Date Type Department Care Team (Late st Contact Info) Description 08/03/2023 8:30 AM EDT Tech [place] [address] Eladio Boyer Mesenteric ischemia Social History Tobacco Use Types Packs/Day Years Used Date Smoking Tobacco: Never Smokeless Tobacco: Never Alcohol Use Standard Drinks/Week Comments Never 0 (1 standard drink = 0.6 oz pur e alcohol) [facility] Utilities Answer Date Recorded In the past 12 months has e [employer], gas, oil, or water [employer] threatened to shut off services in your [...] in a custodial (including now)? No 06/15/2023 IPV Inpatient Questions [...] AM EDT Tech [place] [address] Jose Cook 10/08/2023 9:30 AM EDT Office Visit [place] [address] MD [facility] [place] [address] 10/21/2023 10:30 AM EDT Appointment [place] [address] Mary Reyes APRN [facility] [place] [address] 10/21/2023 11:30 AM EDT Appointment [place] [phone] Mary Reyes APRN [facility] [place] [address] 10/21/2023 12:30 PM EDT Appointment [place] [address] [facility] [place] [address] 10/21/2023 1:30 PM EDT Appointment [place] [address] Mary Reyes, [facility] [place] [address] 10/21/2023 2:30 PM EDT Appointment [place] [address] Mary Reyes, [facility] [place] [address] 10/26/2023 4:00 PM EDT Office Visit Cardiology at [address] [phone] Jaspreet Kinsey MD [facility] [place] [address] 10/28/2023 9:00 AM EDT Office Visit [place] [address] 10/29/2023 10:00 AM EDT Clinical Support [place] [address] 10/29/2023 10:15 AM EDT Procedure visit G[place] [address] 11/01/2023 5:00 PM EDT Office [place] [address] Selene Browning, PhD [facility] [place] [address] 11/22/2023 4:40 PM EDT Office Visit Cardiology at [address] [address] Porsha Mcdaniels MD [facility] [address] 12/13/2023 10:00 AM EDT Clinical Support Gastroenterology at [place] [phone] Lucero Romero, [place] [facility] [place] [address] documented as of this encounter Procedures Procedure Name Priority Date/Time Associated Diagnosis Comments MESENTERIC COMPLETE Routine 08/03/2023 8 :36 AM EDT Mesenteric ischemia documented in this encounter Results * Duplex Study Visceral Arteries, Comp (08/03/2023 8:36 AM EDT) VB Text Report Department: Vascular Surgery Lab Patient: [id number] (LOIDA ROQUE) CPT: 86526 Referring Physician: MAMIE MARX ?? Phone: Indications: S/p SMA stenting (07/01) one month f/u, ? patency Findings: Unilateral ? Waveform ? PSV cm/s ??EDV cm/s ??Patent ?? Dary Visceral Aorta ? 71 ?14 ? Celiac Artery, Proximal ??Stewart-Biphasic ? 100 ?22 ? Celiac Artery, Mid ? Stewart-Biphasic ?99 ?19 ? Celiac Artery, Distal ?Stewart-Biphasic ?94 ?18 ? Sup Mes Artery Proximal [...] within mesenteric artery stents may differ from [place] arteries, with thresholds for diagnosis of significant stenosis likely being somewhat higher in stented arteries than [place].% To date, there is no evidence based consensus of stent velocity criteria. Therefore, the current interpretation is based on [place] artery thresholds. Previous Celiac/Mesenteric Studies: Date ? [...] Marx APRN VASCULAR ORDERABLES Performing Organization Address City/State/[facility] Co de Phone Number [employer] documented in this encounter Visit Diagnoses Diagnosis Mesenteric ischemia Unspecified vascular insufficiency of intestine documented in this encounter Care Teams Electric Sign Wirer Relationship Specialty Start Date End Date Polo Pearce PA [address] [place] [address] PCP - General Internal Medicine 06/09/21 documented as of this encounter
--- OUTSIDE RECORDS SUMMARY | 2023-09-20 18:30 | XMS_ITS | Encounter Summary ---
Author Organization [facility] [place] [address] Care Team Providers Care Dye Box Operator Name Role Phone Polo Pearce Primary Care Provider [phone] Reason for Referral * Diagnostic Test (Routine) - Closed Specialty Diagnoses / Procedures Referred By Contac t Referred To Contact Radiology Diagnoses Chest pain, unspecified type Procedures NM PET CT Cardiac Pharmacologic Stress CT Component Porsha Mcdaniels MD [facility] [place] [address] [place] [address] Referral ID Status Reason Start Date Expiration Date V isits Requested Visits Authorized [id number] Closed Specialty Service Requested 08/03/2023 10/01/2023 1 1 * Diagnostic Test (Routine) - Closed Specialty Diagnoses / Procedures Referred By Contac t Referred To Contact Radiology Diagnoses Chest pain, unspecified type Procedures NM PET CT Cardiac Pharmacologic Stress and Rest Porsha Mcdaniels MD [facility] [address] [place] [address] Referral ID Status Reason Start Date Expiration Date V isits Requested Visits Authorized [id number] Closed Specialty Service Requested 08/03/2023 10/01/2023 1 1 * Diagnostic Test (Routine) - New Request Specialty Diagnoses / Procedures Referred By Contac t Referred To Contact Cardiology Diagnoses Chest pain, unspecified type Procedures Nuclear Pharmacologic Stress Cardiology (PET CT [place]) Porsha Mcdaniels MD [facility] [address] [facility] [place] [address] Referral ID Status Reason Start Date Expiration Date Visits Requested Visits Authorized [id number] New Request Specialty Service Requested 07/29/2023 07/28/2024 1 1 Reason for Visit * Consultation (Routine) - Closed Specialty Diagnoses / Procedures Referred By Contac t Referred To Contact Cardiology Diagnoses Heart failure with preserved ejection fraction, unspecified HF chronicity MINOCA. thorough evaluation performed to date. Jaspreet Kinsey MD [facility] [place] [address] Porsha Mcdaniels MD [facility] [place] [address] Referral ID Status Reason Start Date Expiration Date V isits Requested Visits Authorized [id number] Closed Consult, Test & Treat 06/09/2023 06/08/2024 1 1 Encounter Details Date Type Department Care Team (Late st Contact Info) Description 07/29/2023 8:00 AM EDT Office Visit Cardiology at [address] [address] Porsha Mcdaniels MD [facility] [place] [address] Chest pain, unspecified type Social History Tobacco Use Types Packs/Day Years Used Date Smoking Tobacco: Never Smokeless Tobacco: Never Alcohol Use Standard Drinks/Week Comments Never 0 (1 standard drink = 0.6 oz pur e alcohol) [facility] Utilities Answer Date Recorded In the past [...] from the original note were not included. [facility] 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 Tovar) # MARYLOU on CPAP # HLD # Left carotid stenosis HPI: Indira Roque is a 53 y.o. 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 She follows with Dr. Kinsey in [place]. She underwent CCTA 09/27 that showed mild disease in her LAD. She also had a cardiac cath in 2019 with normal cors. [facility] a transfer from [facility] due to exertional chest pressure and breathlessness. 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 Moves all extremities without limitation. [...] Porsha Mcdaniels MD Section of Interventional Cardiology [facility] Director Of Product Developmentbusiness process analyst [employer] [facility] 07/29/2023 documented in this encounter Plan of Treatment Upcoming Encounters Date Type Department Care Team (Late st Contact Info) Description 10/08/2023 8:30 AM EDT Tech [place] [phone] Jose Cook 10/08/2023 9:30 AM EDT Office Visit Vascular [place] [address] MD [facility] [place] [address] 10/21/2023 10:30 AM EDT Appointment [place] [address] Mary Reyes, [facility] [place] [address] 10/21/2023 11:30 AM EDT Appointment Nuclear Medicine at [place] [phone] Mary Reyes [facility] [place] [address] 10/21/2023 12:30 PM EDT Appointment [place] [address] Mary Reyes [facility] [place] [address] 10/21/2023 1:30 PM EDT Appointment [place] [address] Mary Reyes [facility] [place] [address] 10/21/2023 2:30 PM EDT Appointment [place] [address] Mary Reyes [facility] [place] [address] 10/26/2023 4:00 PM EDT Office Visit Cardiology at [address] [address] Jaspreet Kinsey MD [facility] [place] [address] 10/28/2023 9:00 AM EDT Office [place] [address] 10/29/2023 10:00 AM EDT Clinical Support [place] [address] 10/29/2023 10:15 AM EDT Procedure [place] [address] 11/01/2023 5:00 PM EDT Office Visit G[place] [address] Selene Browning, PhD [facility] [address] 11/22/2023 4:40 PM EDT Office Visit Cardiology at [address] [phone] Porsha Mcdaniels MD [facility] [address] 12/13/2023 10:00 AM EDT Clinical Support G[place] [address]-[address] [facility] [place] [address] documented as of this encounter Procedures Procedure Name Priority Date/Time Associated Diagnosis Comments EKG 12-LEAD Routine 07/29/2023 8:47 AM EDT Chest pain, unspecified type documented in this encounter Results * NM PET CT Cardiac Pharmacologic Stress CT Component (08/17/2023 2:38 PM EDT) [employer] Signature WORKSTATION ID [id number] [facility] Anatomical Region Laterality Modality Positron Emissio n [...] have questions please contact the health career development engineer that requested 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 ? Narrative [...] Coronary calcifications. Bilateral ground glass opacities are [id number] Procedure Note Clay Stanton MD - 08/18/2023 [...] Coronary calcifications. Bilateral ground glass opacities are [id number] IMPRESSION Moderate-sized scar in the apical septum [...] who have questions please contactthe health career development engineer that requested 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 Porsha Mcfarlane MD IM PET ORDERABLES * NM PET CT Cardiac Pharmacologic Stress and Rest (08/17/2023 2:38 PM EDT) WORKSTATION ID [id number] RAD Anatomical Region Laterality Modality Positron Emissio [...] have questions please contact the health career development engineer that requested 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 ? Narrative [...] Coronary calcifications. Bilateral ground glass opacities are [id number] Procedure Note Clay Stanton MD - 08/18/2023 [...] Coronary calcifications. Bilateral ground glass opacities are [id number] IMPRESSION Moderate-sized scar in the apical septum [...] who have questions please contactthe health career development engineer that requested 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 Porsha Mcfarlane [...] (Bezet) 418 ms MUSE SYSTEM Calculated P Sophia 6 degrees MUSE SYSTEM Calculated R Sophia 34 degrees MUSE SYSTEM Calculated T Sophia -73 degrees MUSE SYSTEM INTERPRETATION Sinus bradycardia [...] type documented in this encounter Care Teams Dye Box Operator Relationship Specialty Start Date End Date Polo Pearce PA [address] [place] [address] PCP - General Internal Medicine 06/09/21 documented as of this encounter
--- OUTSIDE RECORDS SUMMARY | 2023-09-20 18:30 | XMS_ITS | Encounter Summary ---
Author Organization [facility] Address [facility] [place] [address] Care Team Providers Care State Auditor Name Role Phone Polo Pearce Primary Care Provider [phone] Encounter Details Date Type Department Care Team (Late st Contact Info) Description 07/12/2023 Refill Cardiology at [address] [place] [phone] Jaspreet Kinsey MD [facility] [place] [address] Social History Tobacco Use Types Packs/Day Years Used Date Smoking Tobacco: Never Smokeless Tobacco: Never Alcohol Use Standard Drinks/Week Comments Never 0 (1 standard drink = 0.6 oz pur e alcohol) [facility] Utilities Answer Date Recorded In the past 12 months has [employer], gas, oil, or water [employer] threatened to shut off services in your [...] mg., 2-2x daily, none left. Patient uses [facility] in [place], [place]. She can be reached @ [phone]. documented in this encounter Plan of Treatment Upcoming Encounters Date Type Department Care Team (Late st Contact Info) Description 10/08/2023 8:30 AM EDT Tech [place] [address] Jose Cook 10/08/2023 9:30 AM EDT Office [place] [address] MD [facility] [place] [address] 10/21/2023 10:30 AM EDT Appointment [place] [address] Mary Reyes, [facility] [place] [address] 10/21/2023 11:30 AM EDT Appointment [place] [address] Mary Reyes, [facility] [place] [address] 10/21/2023 12:30 PM EDT Appointment [place] [address] Mary Reyes, [facility] [place] [address] 10/21/2023 1:30 PM EDT Appointment [place] [address] Mary Reyes, [facility] [place] [address] 10/21/2023 2:30 PM EDT Appointment [place] [address] Mary Reyes, [facility] [place] [address] 10/26/2023 4:00 PM EDT Office Visit Cardiology at [address] [phone] Jaspreet Kinsey MD [facility] [place] [address] 10/28/2023 9:00 AM EDT Office [place] [address] 10/29/2023 10:00 AM EDT Clinical Support [place] [address] 10/29/2023 10:15 AM EDT Procedure visit [place] [address] 11/01/2023 5:00 PM EDT Office Visit Gastroenterology at [place] [phone] Selene Browning, PhD [facility] [place] [address] 11/22/2023 4:40 PM EDT Office Visit Cardiology at [address] [address] Porsha Mcdaniels MD [facility] [place] [address] 12/13/2023 10:00 AM EDT Clinical Support [place] [address] Lucero Romero, [facility] [place] [address] documented as of this encounter Visit Diagnoses Diagnosis Heart failure with preserved ejection fraction, unspecified HF chronicity documented in this encounter Care Teams State Auditor Relationship Specialty Start Date End Date Polo Pearce PA [address] [place] [address] PCP - General Internal Medicine 06/09/21 documented as of this encounter
--- OUTSIDE RECORDS SUMMARY | 2023-09-20 18:30 | XMS_ITS | Encounter Summary ---
Author Organization [facility] [address] Care Team Providers Care Steward/Stewardess Third Class Name Role Phone Polo Pearce Primary Care Provider [phone] Reason for Referral * Diagnostic Test (Routine) - Closed Specialty Diagnoses / Procedures Referred By Contac t Referred To Contact Radiology Diagnoses Chest pain, unspecified type Procedures NM PET CT Cardiac Pharmacologic Stress CT Component Porsha Mcdaniels MD [facility] [place] [address] [place] [address] Referral ID Status Reason Start Date Expiration Date V isits Requested Visits Authorized [id number] Closed Specialty Service Requested 08/03/2023 10/01/2023 1 1 * Diagnostic Test (Routine) - Closed Specialty Diagnoses / Procedures Referred By Contac t Referred To Contact Radiology Diagnoses Chest pain, unspecified type Procedures NM PET CT Cardiac Pharmacologic Stress and Rest Porsha Mcdaniels MD [facility] [place] [address] [place] [address] Referral ID Status Reason Start Date Expiration Date V isits Requested Visits Authorized [id number] Closed Specialty Service Requested 08/03/2023 10/01/2023 1 1 Reason for Visit * Diagnostic Test (Routine) - Closed Specialty Diagnoses / Procedures Referred By Contac t Referred To Contact Radiology Diagnoses Chest pain, unspecified type Procedures NM PET CT Cardiac Pharmacologic Stress and Rest Porsha Mcdaniels MD [facility] [place] [address] [place] [address] Referral ID Status Reason Start Date Expiration Date V isits Requested Visits Authorized [id number] Closed Specialty Service Requested 08/03/2023 10/01/2023 1 1 Encounter Details Date Type Department Care Team (Latest Contact Info) Description 08/17/2023 11:52 AM EDT Hospital En[place] [address] Porsha Mcdaniels MD [facility] [place] [address] Chest pain, unspecified type Discharge Disposition: Home Social History Tobacco Use Types Packs/Day Years Used Date Smoking Tobacco: Never Smokeless Tobacco: Never Alcohol Use Standard Drinks/Week Comments Never 0 (1 standard drink = 0.6 oz pur e alcohol) [facility] Utilities Answer Date Recorded In the past 12 months has [employer] electric, gas, oil, or water company threatened [...] slept in a alf (including now)? No 06/15/2023 DH IPV Inpatient [...] as needed. fluticasone propionate (FLONASE) 50 mcg/actuation [place], Suspension 1 spray by Each Nare route [...] AM EDT Tech [place] [address] Jose Cook 10/08/2023 9:30 AM EDT Office Visit [place] [address] MD [facility] [place] [address] 10/21/2023 10:30 AM EDT Appointment Nuclear Medicine at [address] Mary Reyes, [facility] [place] [address] 10/21/2023 11:30 AM EDT Appointment Nuclear Medicine at [address]1000 Mary Reyes [facility] [place] [address] 10/21/2023 12:30 PM EDT Appointment [place] [address] Mary Reyes [facility] [place] [address] 10/21/2023 1:30 PM EDT Appointment [place] [address] Mary Reyes [facility] [place] [address] 10/21/2023 2:30 PM EDT Appointment [place] [address] Mary Reyes [facility] [place] [address] 10/26/2023 4:00 PM EDT Office Visit Cardiology at [address] [place] [address] Jaspreet Kinsey MD [facility] [place] [address] 10/28/2023 9:00 AM EDT Office [place] [address] 10/29/2023 10:00 AM EDT Clinical [place] [address] 10/29/2023 10:15 AM EDT Procedure [place] [address] 11/01/2023 5:00 PM EDT Office Visit [place] [address] Selene Browning, PhD [facility] [place] [place] [address] 11/22/2023 4:40 PM EDT Office Visit Cardiology at [address] [phone] Porsha Mcdaniels MD [facility] [place] [address] 12/13/2023 10:00 AM EDT Clinical Support [place] [address] [facility] [place] [address] documented as of this encounter Procedures Procedure [...] Component (08/17/2023 2:38 PM EDT) WORKSTATION ID [id number] RAD Anatomical Region Laterality Modality Positron Emissio [...] who have questions please contact the health patient care director that requested 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 ? Electronically signed by: Clay Stanton MD, [facility] ([phone]), at 08/18/2023 2:49 PM Narrative 08/18/2023 2:49 [...] Coronary calcifications. Bilateral ground glass opacities are [id number] Procedure Note Clay Stanton MD - 08/18/2023 EXAMINATION: [place] PET CT CARDIAC PHARMACOLOGIC STRESS AND REST, [place] PET CTCARDIAC PHARMACOLOGIC STRESS CT COMPONENT CLINICAL [...] Coronary calcifications. Bilateral ground glass opacities are [id number] IMPRESSION Moderate-sized scar in the apical septum [...] patients who have questions please contactthe health patient care director that requested 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 Electronically signed by: Clay Stanton MD, [facility]([phone]), at 08/18/2023 2:49 PM Porsha Mcfarlane MD IMG PET ORDERABLES * NM PET CT Cardiac Pharmacologic Stress and Rest (08/17/2023 2:38 PM EDT) [employer] WORKSTATION ID [id number] [facility] Anatomical Region Laterality Modality Positron Emissio [...] who have questions please contact the health patient care director that requested 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 ? Electronically signed by: Clay Stanton MD, [facility] ([phone]), at 08/18/2023 2:49 PM Narrative 08/18/2023 2:49 PM EDT EXAMINATION: [place] PET CT CARDIAC PHARMACOLOGIC STRESS AND REST, [place] PET CT CARDIAC PHARMACOLOGIC STRESS CT COMPONENT [...] Coronary calcifications. Bilateral ground glass opacities are [id number] Procedure Note Clay Stanton MD - 08/18/2023 EXAMINATION: [place] PET CT CARDIAC PHARMACOLOGIC STRESS AND REST, [place] PET CTCARDIAC PHARMACOLOGIC STRESS CT COMPONENT CLINICAL [...] Coronary calcifications. Bilateral ground glass opacities are [id number] IMPRESSION Moderate-sized scar in the apical septum [...] patients who have questions please contactthe health patient care director that requested 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 Electronically signed by: Clay Stanton MD, [facility]([phone]), at 08/18/2023 2:49 PM Porsha Mcfarlane MD [...] Arm documented in this encounter Care Teams Steward/Stewardess Third Class Relationship Specialty Start Date End Date Polo Pearce PA [address] [place] [address] PCP - General Internal Medicine 06/09/21 documented as of this encounter
--- OUTSIDE RECORDS SUMMARY | 2023-09-20 18:32 | XMS_ITS | Encounter Summary ---
[place] [address] Care Team Providers Care Armature Inspector Name Role Phone Polo Pearce Primary Care Provider [phone] Reason for Visit * Auth/Cert (Routine) Specialty Diagnoses / Procedures Referred By Jayant t Referred To Contact Diagnoses NSTEMI (non-ST elevated myocardial infarction) NSTEMI Procedures ER Lloyd Pantoja MD [facility] [place] [address] [facility] Referral ID Status Reason Start Date Expiration Date Visits Re quested Visits Authorized [id number] 1 1 Encounter Details Date Type Department Care Team (Late st Contact Info) Description 07/07/2023 2:05 PM EDT Anesthesia [place] [address] Constantine Velez MD [facility] [place] [address] Anesthesia Record Procedure Summary Procedure Name Responsible [...] drink = 0.6 oz pur e alcohol) [facility] Utilities Answer Date Recorded In the past 12 months has [email or web address], gas, oil, or water [employer] threatened to shut off services in your [...] Procedure Summary Date: 07/07/23 Room / Location: [facility] ENDO 5 / [facility] ENDOSCOPY Anesthesia Start: 1405 Anesthesia Stop: 151 Procedures: EGD WITH BIOPSY (WRVU 2.39) (Trunk) COLONOSCOPY FLEXIBLE, WITH BX (WRVU 3.56) (Trunk) Diagnosis: (post prandial pain) Surgeons: Lashonda Villa MD Responsible Provider: Constantine Velez MD Anesthesia Type: general ASA Status: 4 All Anesthesia Providers: Anesthesiologist: Constantine Velez MD CHEMIST ASSISTANT: Darío Barlow CRNA Production Clerks Supervisor: Lawrence Lopez MD Vitals Value Taken Time BP 96/51 07/07/23 1530 Temp Pulse Resp SpO2 100 % 07/07/23 1537 Pain Level 1 07/07/23 1510 Vitals shown include unfiled device data. Patient Location: PACU/INP Level of Consciousness: Awake and Alert Pain [...] AM EDT Tech [place] [phone] Jose Cook 10/08/2023 9:30 AM EDT Office Visit [place] [address] MD [facility] [place] [address] 10/21/2023 10:30 AM EDT Appointment [place] [address] Mary Reyes [facility] [place] [address] 10/21/2023 11:30 AM EDT Appointment [place] [phone] Mary Reyes [facility] [place] [address] 10/21/2023 12:30 PM EDT Appointment [place] [address] Mary Reyes [facility] [place] [address] 10/21/2023 1:30 PM EDT Appointment [place] [address] Mary Reyes [facility] [place] [address] 10/21/2023 2:30 PM EDT Appointment [place] [address] Mary Reyes [facility] [place] [address] 10/26/2023 4:00 PM EDT Office Visit Cardiology at [address] [phone] Jaspreet Kinsey MD [facility] [place] [address] 10/28/2023 9:00 AM EDT Office [place] [address] 10/29/2023 10:00 AM EDT Clinical [place] [address] 10/29/2023 10:15 AM EDT Procedure [place] [address] 11/01/2023 5:00 PM EDT Office [place] [phone] Selene Browning, [facility] [place] [address] 11/22/2023 4:40 PM EDT Office Visit Cardiology at [address] [phone] Porsha Mcdaniels MD [facility] [place] [address] 12/13/2023 10:00 AM EDT Clinical Support [place] [phone] [facility] [place] [address] documented as of this encounter Visit Diagnoses [...] mg documented in this encounter Care Teams Armature Inspector Relationship Specialty Start Date End Date Polo Pearce PA [address] [place] [address] PCP - General Internal Medicine 06/09/21 documented as of this encounter
--- OUTSIDE RECORDS SUMMARY | 2023-09-20 18:32 | XMS_ITS | Encounter Summary ---
Author Organization [facility] [place] [address] Care Team Providers Care Hydroelectric Production Manager Name Role Phone Polo Pearce Primary Care Provider [phone] Reason for Referral * Consultation (Routine) - Closed Specialty Diagnoses / Procedures Referred By Jayant harris Referred To Contact Gastroenterology Diagnoses Chronic abdominal pain chronic abd pain after meals Porsha San MD [facility] [place] [address] [facility] [address] [address] Referral ID Status Reason Start Date Expiration Date V isits Requested Visits Authorized [id number] Closed Consult, Test & Treat 07/08/2023 07/07/2024 1 1 Encounter Details Date Type Department Care Team (Late st Contact Info) Description 07/08/2023 Orders [place] [address] Porsha San MD [facility] [place] [address] Chronic abdominal pain Social History Tobacco Use Types Packs/Day Years Used Date Smoking Tobacco: Never Smokeless Tobacco: Never Alcohol Use Standard Drinks/Week Comments Never 0 (1 standard drink = 0.6 oz pur e alcohol) [facility] Utilities Answer Date Recorded In [...] AM EDT Tech [place] [phone] Jose Cook 10/08/2023 9:30 AM EDT Office Visit Vascular Surgery at [place] [phone] MD [facility] [place] [address] 10/21/2023 10:30 AM EDT Appointment Nuclear Medicine at [address] Mary Reyes, [facility] [place] [address] 10/21/2023 11:30 AM EDT Appointment Nuclear Medicine at [place] [phone] Mary Reyes [facility] [place] [address] 10/21/2023 12:30 PM EDT Appointment Nuclear Medicine at [place] [phone] Mary Reyes [facility] [place] [address] 10/21/2023 1:30 PM EDT Appointment Nuclear Medicine at [place] [phone] Mary Reyes [facility] [place] [address] 10/21/2023 2:30 PM EDT Appointment [place] [address] Mary Reyes [facility] [place] [address] 10/26/2023 4:00 PM EDT Office Visit Cardiology at [address] [phone] Jaspreet Kinsey MD [facility] [place] [address] 10/28/2023 9:00 AM EDT Office [place] [address] 10/29/2023 10:00 AM EDT Clinical [place] [address] 10/29/2023 10:15 AM EDT Procedure [place] [address] 11/01/2023 5:00 PM EDT Office Visit Gastroenterology at [place] [phone] Selene Browning, PhD [facility] [place] [address] 11/22/2023 4:40 PM EDT Office Visit Cardiology at [address] [phone] Porsha Mcdaniels MD [facility] [place] [address] 12/13/2023 10:00 AM EDT Clinical [place] [address] [facility] [address] [place] [address] Scheduled Referrals Name Type Priority Associated Diagnoses Order Schedule Referral to Gastroenterology Outpatient Referral Routine Chronic abdominal pain Ordered: 07/08/2023 documented as of this encounter Visit Diagnoses Diagnosis Chronic abdominal pain Abdominal pain, unspecified site documented in this encounter Care Teams Hydroelectric Production Manager Relationship Specialty Start Date End Date Polo Pearce PA [address] [place] [address] PCP - General Internal Medicine 06/09/21 documented as of this encounter
--- OUTSIDE RECORDS SUMMARY | 2023-09-20 18:32 | XMS_ITS | Encounter Summary ---
Author Organization [facility] [place] [address] Care Team Providers Care M1A1 Tank Crewman Name Role Phone Polo Pearce Primary Care Provider [phone] Reason for Referral * Consultation (Routine) - Duplicate Referral Specialty Diagnoses / Procedures Referred By Jayant harris Referred To Contact Gastroenterology Diagnoses Mesenteric artery stenosis Terrence Keating MD [facility] [place] [address] [facility] [address] [place] [address] Referral ID Status Reason Start Date Expiration Date Visits Requested Visits Authorized [id number] Duplicate Referral Consult, Test & Treat 07/09/2023 07/08/2024 1 1 * Home Health Care (Routine) - Authorized Specialty Diagnoses / Procedures Referred By Contjulita t Referred To Contact Diagnoses Paroxysmal atrial fibrillation Chest pain, unspecified type Heart failure with preserved ejection fraction, unspecified HF chronicity Terrence Keating MD [facility] [place] [address] Home Health & [address] [place] [address] Referral ID Status Reason Start Date Expiration Date Visits Requested Visits Authorized [id number] Authorized Consult, Test & Treat 07/09/2023 01/05/2024 999 999 Reason for Visit * Auth/Cert (Routine) Specialty Diagnoses / Procedures Referred By Contac t Referred To Contact Diagnoses NSTEMI (non-ST elevated myocardial infarction) NSTEMI Procedures ER IPI Terrence Keating MD [facility] [place] [address] [facility] Referral ID Status Reason Start Date Expiration Date Visits Re quested Visits Authorized [id number] 1 1 Encounter Details Date Type Department Care Team (Latest Contact Info) Description 06/14/2023 11:01 PM EDT - 07/09/2023 4:44 PM EDT Hospital Encounter Heart and Vascular Unit Level 4 Wing B at [place] [id number] Jaspreet Kinsey MD [facility] [place] [address] Lino Calles MD [facility] [place] [address] Eufemia Copeland MD [facility] [place] [address] Ailyn Irvin MD [facility] [place] [address] Terrence Keating MD [facility] [place] [address] Paroxysmal atrial fibrillation; Chest pain, unspecified type; [...] Loida Roque Patient Age: 53 y.o. Language: Andorran Race: White Ethnicity: Not nor Admit date: 06/14/2023 Discharge date and time: 07/09/2023 3:31 PM Attending Physician: Terrence Keating MD Discharge Physician: Terrence Keating MD Follow-up Recommendations for Providers: Inpatient Provider Contact Information: For questions regarding this document or issues relating to this hospitalization on the Medical Service, please contact your inpatient physician through the [facility] Ux Visual Designer . Issues afterhours and on weekends will [...] questions please contact the health acute care physical therapist that requested 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 Electronically signed by: Wilton Cabrera MD, [facility] ([phone]), at 06/17/2023 5:[address] Abdomen & [...] questions please contact the health acute care physical therapist that requested 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 Chest One View (Exam End: 06/22/2023 11:42 [...] questions please contact the health acute care physical therapist that requested 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 Abdomen Limited (Exam End: 06/28/2023 12:22 PM) Result Value WORKSTATION ID [id number] Narrative Abdominal (Signed Final 06/28/2023 02:08 pm) PATIENT INFO: ID #: [id number] : [birth year] (53 yrs)(F) Name: LOIDA Visit Date: 06/28/2023 12:20 pm ROHAN PERFORMED BY: Attending: Sigrid Owens MD Resident: Rafaela Huddleston MD Performed By: Deena Cabrera RDMS Referred By: AILYN IRVIN Location: [place] SERVICE(S) PROVIDED: UABDLIM - Abdominal Limited Survey Single 52270 Organ or Quadrant - [id number] INDICATIONS: RUQ pain, R/o Gall bladder colic, [...] PM Electronically signed by: Sigrid Owens MD, [facility] ([phone]), at 06/28/2023 2:02 PM Thank you for letting us participate in the care of this patient. If you are a health care provider and have any questions regarding this report, please contact the number above. For patients who have questions, please contact the health acute care physical therapist that requested 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 Sigrid Owens, [facility] Software Quality Test Engineer Electronically Signed Final Report 06/28/2023 02:08 pm [...] anesthetic: 10 cc 1% lidocaine Heparin: Yes 46822 Units Protamine: No mg Antibiotics: Ancef Fluoro [...] We exchanged the sheath for a 7 Czech claims collector steerable sheath over a stiff wire. A Glidewire and Kumpe catheter were used to selectively cannulate the superior mesenteric artery. Direct angiography of the superior mesenteric artery was performed, confirming the results of the nonselective aortography performed. The lesion was predilated with a 4 mm x 40 mm [place] balloon, and then a 6 mm X [...] 07/03/2023 3:18 PM) Result Value WORKSTATION ID [id number] Narrative EXAMINATION: XR CHEST ONE VIEW CLINICAL [...] questions please contact the health acute care physical therapist that requested 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 Echocardiogram from 06/22/2023 with mild reduction in [...] pain. The patient was recently admitted at [facility] from 04/16/23 to 04/19/2023 as a transfer from [facility] due to exertional chest pressure and [...] etiology, patient was accepted for transfer to [facility]. Brief Summary: Loida Roque is a 53 [...] with positive cardiac markers. Patient transferred to [facility] for further work-up and evaluation. On arrival, [...] Administered Date(s) Administered Moderna Covid-19 Monovalent 12Yr+ (In Home Nanny 100mcg) 03/06/2020, 04/03/2020 Discharge Medications: Your Medications [...] weight gain + increasing shortness of breath. [id number] minutes prior to a dose of torsemide). [...] appointments: During 8am-5pm Wednesday through Wednesday call [phone] to speak with a nurse in the cardiology clinic All other times call [phone] and ask to speak to the porcelain technician dispersion mixer. Return to work: One week Driving: No driving for 48 hours after catheterization. Follow up Appointments: PCP JOCY Franco [phone] 11:30am on July 19. Cardiology office will call you regarding your appointment with Dr. Kinsey. General Instructions None Future Appointments and Orders Future Appointments and Orders Future Appointments Provider Department Dept Phone 07/26/2023 3:20 PM Jaspreet Kinsey MD Cardiology at [place] Arrive at: [facility] [address] [phone] 07/29/2023 8:00 AM Porsha Mcdaniels MD Cardiology at [facility] Arrive at: It Senior Software Engineer Java Area 4A [phone] 08/03/2023 8:30 AM Eladio Boyer Vascular Lab at [facility] Arrive at: It Senior Software Engineer Java Area 3V [phone] 08/03/2023 9:30 AM Judith Butler APRN Vascular Surgery at [facility] Arrive at: It Senior Software Engineer Java Area 3V [phone] 09/02/2023 2:40 PM Jaspreet Kinsey MD Cardiology at [place] Arrive at: [facility] [address] [phone] Discharge References/Attachments None Greater than 30 minutes was spent on this discharge including documentation, [id number] time withthe patient, patient education, pit recorder, coordination with pharmacy and other patient care. [...] appointments: During 8am-5pm Wednesday through Wednesday call [phone] to speak with a nurse in the cardiology clinic All other times call [phone] and ask to speak to the porcelain technician dispersion mixer. Return to work: One week Driving: No driving for 48 hours after catheterization. Follow up Appointments: PCP JOCY Franco [phone] 11:30am on July 19. Cardiology office will [...] as needed. fluticasone propionate (FLONASE) 50 mcg/actuation [place], Suspension 1 spray by Each Nare route [...] 4pm, per the team. Please refer to: [facility] [employer] [facility] [employer] [address] [place] [address] PHONE: [phone] FAX: [phone] *For RN RICARDO: 07/09/23 Nani Mendoza MSN-Ed, RN ACM Cardiac Research Nurse and Neuro/Neurocrit/ENT Mining Plant Operator. * Mary Castaneda RCP - 07/09/2023 4:37 [...] 1:00 PM EDT [facility] - [facility] DAILY PROGRESS NOTE Page [phone] to reach a provider 28/09 Admit Date: [...] with positive cardiac markers. Patient transferred to [facility] for further work-up and evaluation. Presented with [...] prn. Diet: Daily Healthy Menu Choices/Cardiac diet ([facility]-Diet) DVT Prophylaxis: DOAC heparin gtt. 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 Allen aSn MD PGY5 Gastroenterology Associated attestation - Lashonda [...] Lashonda Villa MD Gastroenterology and hepatology Pager: [phone] * Patricia Rosas RCP - 07/08/2023 4:10 [...] 9:00 AM EDT [facility] - [facility] DAILY PROGRESS NOTE Page [phone] to reach a provider 28/09 Admit Date: [...] with positive cardiac markers. Patient transferred to [facility] for further work-up and evaluation. Presented with [...] Score: 24 PT: OT: PCP JOCY Franco [phone] Terrence Keating MD 07/07/2023 * Terrence Keating MD - 07/06/2023 11:00 AM EDT [facility] 2 - [facility] DAILY PROGRESS NOTE Page [phone] to reach a provider 28/09 Admit Date: [...] with positive cardiac markers. Patient transferred to [facility] for further work-up and evaluation. Presented with [...] hospital Diet: Daily Healthy Menu Choices/Cardiac diet ([facility]-Diet) NPO diet (Give Meds) DVT Prophylaxis: DOAC Code status: Attempt Cardiopulmonary Resuscitation - Inpatient Disposition: Discharge Location: AM-PAC Basic Mobility Raw Score: 24 PT: OT: PCP JOCY Franco [phone] Terrence Keating MD 07/06/2023 * Ana Paula [...] 11:00 AM EDT [facility] 2 - [facility] DAILY PROGRESS NOTE Page [phone] to reach a provider 28/09 Admit Date: [...] with positive cardiac markers. Patient transferred to [facility] for further work-up and evaluation. Presented with [...] hospital Diet: Daily Healthy Menu Choices/Cardiac diet ([facility]-Diet) DVT Prophylaxis: DOAC Code status: Attempt Cardiopulmonary Resuscitation - Inpatient Disposition: Discharge Location: AM-PAC Basic Mobility Raw Score: 24 PT: OT: PCP JOCY Franco [phone] Terrence Keating MD 07/05/2023 * Lino Calles MD - 07/04/2023 9:09 AM EDT [facility] 2 - [facility] DAILY PROGRESS NOTE Page [phone] to reach a provider 28/09 Admit Date: [...] with positive cardiac markers. Patient transferred to [facility] for further work-up and evaluation. On arrival, [...] migraine Diet: Daily Healthy Menu Choices/Cardiac diet ([facility]-Diet) DVT Prophylaxis: DOAC Code status: Attempt Cardiopulmonary Resuscitation - Inpatient Disposition: Discharge Location: AM-[facility] Basic Mobility Raw Score: 24 PT: OT: PCP JOCY Franco [phone] Lino Calles MD 07/04/2023 * Ana Paula [...] 8:59 AM EDT [facility] 2 - [facility] DAILY PROGRESS NOTE Page [phone] to reach a provider 28/09 Admit Date: [...] with positive cardiac markers. Patient transferred to [facility] for further work-up and evaluation. On arrival, [...] PRN Diet: Daily Healthy Menu Choices/Cardiac diet ([facility]-Diet) DVT Prophylaxis: DOAC Code status: Attempt Cardiopulmonary Resuscitation - Inpatient Disposition: Discharge Location: AM-PAC Basic Mobility Raw Score: 24 PT: OT: PCP JOCY Franco [phone] Lino Calles MD 07/03/2023 * Van Muse [...] 9:55 AM EDT [facility] 2 - [facility] DAILY PROGRESS NOTE Page [phone] to reach a provider 28/09 Admit Date: [...] with positive cardiac markers. Patient transferred to [facility] for further work-up and evaluation. On arrival, [...] PRN Diet: Daily Healthy Menu Choices/Cardiac diet ([facility]-Diet) DVT Prophylaxis: DOAC Code status: Attempt Cardiopulmonary Resuscitation - Inpatient Disposition: Discharge Location: AM-PAC Basic Mobility Raw Score: 24 PT: OT: PCP JOCY Franco [phone] Lino Calles MD 07/02/2023 * Jaspreet Griffith [facility] - 07/02/2023 6:35 AM EDT Respiratory Care [...] 7:39 AM EDT [facility] H[facility]PITALIST 2 - [facility] DAILY PROGRESS NOTE Page [phone] to reach a provider 28/09 Admit Date: [...] with positive cardiac markers. Patient transferred to [facility] for further work-up and evaluation. On arrival, [...] PRN Diet: Daily Healthy Menu Choices/Cardiac diet ([facility]-Diet) NPO diet (Give Meds) DVT Prophylaxis: DOAC Code status: Attempt Cardiopulmonary Resuscitation - Inpatient Disposition: Discharge Location: AM-PAC Basic Mobility Raw Score: 24 PT: OT: PCP JOCY Franco [phone] Terrence Keating MD 07/01/2023 * Terrence Keating MD - 06/30/2023 8:00 AM EDT [facility] 2 - [facility] DAILY PROGRESS NOTE Page [phone] to reach a provider 28/09 Admit Date: [...] with positive cardiac markers. Patient transferred to [facility] for further work-up and evaluation. On arrival, [...] Score: 24 PT: OT: PCP JOCY Franco [phone] Terrence Keating MD 06/30/2023 * Terrence Keating MD - 06/29/2023 4:29 PM EDT [facility]IST 2 - [facility] DAILY PROGRESS NOTE Page [phone] to reach a provider 24/7 Admit Date: [...] with positive cardiac markers. Patient transferred to [facility] for further work-up and evaluation. On arrival, [...] Score: 24 PT: OT: PCP JOCY Franco [phone] Terrence Keating MD 06/29/2023 * Jo Ann Sharpe - 06/29/2023 2:54 PM EDT Nutrition Services Note - Low Nutrition Acuity Loida Roque is a 53 y.o. female Reason for intervention: follow up Nutrition Plan: Continue current diet. Encourage good PO intake. Spironolactone noted. Abdominal pain after eating noted. Encouragement and support provided. Pt screened for follow-up visit and fha underwriter met with Pt at bedside. Pt [...] consulted in the interim. Jo Ann Sharpe Odd Job Laborer * Mary Castaneda RCP - 06/29/2023 3:55 [...] 1:53 PM EDT [facility]IST 2 - [facility] DAILY PROGRESS NOTE Page [phone] to reach a provider 28/09 Admit Date: [...] with positive cardiac markers. Patient transferred to [facility] for further work-up and evaluation. On arrival, [...] Score: 24 PT: OT: PCP JOCY Franco [phone] * Ailyn Irvin MD - 06/27/2023 9:40 AM EDT [facility]IST 2 - [facility] DAILY PROGRESS NOTE Page [phone] to reach a provider 28/09 Admit Date: [...] with positive cardiac markers. Patient transferred to [facility] for further work-up and evaluation. On arrival, [...] Score: 24 PT: OT: PCP JOCY Franco [phone] * Ailyn Irvin MD - 06/26/2023 12:42 PM EDT [facility] H[facility]PITALIST 2 - [facility] DAILY PROGRESS NOTE Page [phone] to reach a provider 28/09 Admit Date: [...] with positive cardiac markers. Patient transferred to [facility] for further work-up and evaluation. On arrival, [...] Score: 24 PT: OT: PCP JOCY Franco [phone] * Mitali Manuel [facility] - 06/26/2023 5:43 AM EDT Respiratory Therapy [...] 1:39 PM EDT [facility] H[facility]PITALIST 2 - [facility] DAILY PROGRESS NOTE Page [phone] to reach a provider 28/09 Admit Date: [...] with positive cardiac markers. Patient transferred to [facility] for further work-up and evaluation. On arrival, [...] Score: 24 PT: OT: PCP JOCY Franco [phone] * Edith Chandler RCP - 06/24/2023 10:40 [...] 4:38 PM EDT [facility] H[facility]PITALIST 2 - [facility] DAILY PROGRESS NOTE Page [phone] to reach a provider 28/09 Admit Date: [...] with positive cardiac markers. Patient transferred to [facility] for further work-up and evaluation. On arrival, [...] Score: 24 PT: OT: PCP JOCY Franco [phone] * Aaron Rosado RCP - 06/24/2023 1:55 [...] 1:03 PM EDT [facility] H[facility]PITALIST 2 - [facility] DAILY PROGRESS NOTE Page [phone] to reach a provider 28/09 Admit Date: [...] with positive cardiac markers. Patient transferred to [facility] for further work-up and evaluation. On arrival, [...] Score: 24 PT: OT: PCP JOCY Franco [phone] * Ciera Valdovinos, ALVA - 06/22/2023 2:38 PM EDT Nutrition Services Note - Low Nutrition Acuity Loida Roque is a 53 y.o. female Reason for intervention: hospital day 9 Nutrition Plan: Cardiac Diet Record % PO intake Monitor weight - diuresis noted Patient screened for hospital length of stay nutrition visit, fha underwriter met with Loida at bedside. Loida reports excellent appetite, eating 100% of meals. She notes that she has not skipped any meals inpatient and has no current nutrition related questions. She notes UBW 217-218 lbs and says that current weight is higher than normal for her. Diuresis noted. Active Orders Diet Daily Healthy Menu Choices/Cardiac diet ([facility]-Diet) Frequency: Effective Now Number of Occurrences: Until [...] 1:35 PM EDT [facility] H[facility]PITALIST 2 - [facility] DAILY PROGRESS NOTE Page [phone] to reach a provider 28/09 Admit Date: [...] questions please contact the health acute care physical therapist that requested 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 Chest One View (Exam End: 06/22/2023 11:42 AM) Impression No acute pulmonary findings Thank you for letting us participate in the care of this patient. If you are a health care provider and have any questions regarding this report, please contact the number below. For patients who have questions please contact the health acute care physical therapist that requested 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 Assessment: Loida Roque is a 53 y.o. [...] with positive cardiac markers. Patient transferred to [facility] for further work-up and evaluation. On arrival, [...] above Diet: Daily Healthy Menu Choices/Cardiac diet ([facility]-Diet) DVT Prophlaxis: eliquis Code status: Attempt Cardiopulmonary Resuscitation - Inpatient Disposition: Discharge Planning: AM-PAC Basic Mobility Raw Score: 24 PT: OT: PCP JOCY Franco [phone] * Eufemia Copeland MD - 06/21/2023 11:02 AM EDT [facility] H[facility]PITALIST 2 - [facility] DAILY PROGRESS NOTE Page [phone] to reach a provider 28/09 Admit Date: [...] with positive cardiac markers. Patient transferred to [facility] for further work-up and evaluation. On arrival, [...] above Diet: Daily Healthy Menu Choices/Cardiac diet ([facility]-Diet) DVT Prophlaxis: eliquis Code status: Attempt Cardiopulmonary Resuscitation - Inpatient Disposition: Discharge Planning: AM-PAC Basic Mobility Raw Score: 24 PT: OT: PCP JOCY Franco [phone] * Eufemia Copeland MD - 06/20/2023 8:06 AM EDT [facility] H[facility]PITALIST 2 - [facility] DAILY PROGRESS NOTE Page [phone] to reach a provider 28/09 Admit Date: [...] with positive cardiac markers. Patient transferred to [facility] for further work-up and evaluation. On arrival, [...] above Diet: Daily Healthy Menu Choices/Cardiac diet ([facility]-Diet) DVT Prophlaxis: eliquis Code status: Attempt Cardiopulmonary Resuscitation - Inpatient Disposition: Discharge Planning: AM-PAC Basic Mobility Raw Score: 24 PT: OT: PCP JOCY Franco [phone] * Eufemia Copeland MD - 06/19/2023 10:00 AM EDT [facility] H[facility]PITALIST 2 - [facility] DAILY PROGRESS NOTE Page [phone] to reach a provider 28/09 Admit Date: [...] with positive cardiac markers. Patient transferred to [facility] for further work-up and evaluation. On arrival, [...] above Diet: Daily Healthy Menu Choices/Cardiac diet ([facility]-Diet) DVT Prophlaxis: eliquis Code status: Attempt Cardiopulmonary Resuscitation - Inpatient Disposition: Discharge Planning: AM-PAC Basic Mobility Raw Score: 24 PT: OT: PCP JOCY Franco [phone] * Eufemia Copeland MD - 06/18/2023 9:02 AM EDT CV HOSPITALIST 2 - [facility] DAILY PROGRESS NOTE Page [phone] to reach a provider 28/09 Admit Date: [...] with positive cardiac markers. Patient transferred to [facility] for further work-up and evaluation. On arrival, [...] above Diet: Daily Healthy Menu Choices/Cardiac diet ([facility]-Diet) DVT Prophlaxis: eliquis Code status: Attempt Cardiopulmonary Resuscitation - Inpatient Disposition: Discharge Planning: AM-PAC Basic Mobility Raw Score: 24 PT: OT: PCP JOCY Franco [phone] * Eufemia Copeland MD - 06/17/2023 12:02 PM EDT CV HOSPITALIST 2 - [facility] DAILY PROGRESS NOTE Page [phone] to reach a provider 28/09 Admit Date: [...] with positive cardiac markers. Patient transferred to [facility] for further work-up and evaluation. On arrival, [...] above Diet: Daily Healthy Menu Choices/Cardiac diet ([facility]-Diet) DVT Prophlaxis: eliquis Code status: Attempt Cardiopulmonary Resuscitation - Inpatient Disposition: Discharge Planning: AM-PAC Basic Mobility Raw Score: 24 PT: OT: PCP JOCY Franco [phone] * Calista Hernandez RT - 06/17/2023 4:36 [...] 3:25 PM EDT CV H[facility]PITALIST 2 - [facility] DAILY PROGRESS NOTE Page [phone] to reach a provider 28/09 Admit Date: [...] with positive cardiac markers. Patient transferred to [facility] for further work-up and evaluation. On arrival, [...] above Diet: Daily Healthy Menu Choices/Cardiac diet ([facility]-Diet) DVT Prophlaxis: eliquis Code status: Attempt Cardiopulmonary Resuscitation - Inpatient Disposition: Discharge Planning: AM-PAC Basic Mobility Raw Score: 24 PT: OT: PCP JOCY Franco [phone] documented in this encounter H&P Notes * [...] pain. The patient was recently admitted at [facility] from 04/16/23 to 04/19/2023 as a transfer from [facility] due to exertional chest pressure and [...] etiology, patient was accepted for transfer to [facility]. 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 fluticasone propionate (FLONASE) 50 mcg/actuation [place], Suspension 1 spray by Each Nare route [...] if hypotensive / cardiogenic shock / inferior [place] / sildenafil within past 24 hours) - [...] for discharge to home with family support, [place] [facility] for RN and OP Cardi clinic for f/u. Needs for Transition of Care: Plan for discharge is: Home w/ Services Outpatient Agency/Support Group Needs: None Home Health Services: Registered Nurse Agency Referrals & Follow-up Care: Contact information for follow-up Home Health & Hospice, [place] [address] [place] [address] Transportation: taxi voucher -Ride confirmed entrance #2 [...] other (see comments) (Has CPAP provided through [facility]) DME Needed at Discharge: none Patient is insured through: Primary Insurance: [employer] [place] Payor: [employer] [place] / Plan[place] / Product Type: *No Product type* / Secondary Insurance: N/A Prescription Coverage: Yes This plan was formulated with input from patient, (please identify family/friend involved if applicable) and team. All are in agreement with plan. Nani Mendoza MSN-Ed, RN ACM Cardiac Research Nurse and Neuro/Neurocrit/ENT Mining Plant Operator. * Care Management - Dixie Patterson - 07/09/2023 1:38 PM EDT Transportation for discharge was scheduled and confirmed through [employer]. [employer] will have a fleet driver here at entrance #2 @4pm to [...] Visceral Aorta 80 16 Celiac Artery, Proximal Swain-Biphasic 119 26 Celiac Artery, Mid Swain-Biphasic 115 21 Celiac Artery, Distal No Vis Sup Mes Artery Proximal Biphasic 427 91 Sup Mes Artery Middle Swain-Biphasic 100 17 Sup Mes Artery Distal Swain-Biphasic 64 15 Hepatic Artery No Vis Splenic [...] sign off at this time, please page [phone] with any questions or concerns. Discussed with [...] Visceral Aorta 80 16 Celiac Artery, Proximal Swain-Biphasic 119 26 Celiac Artery, Mid Swain-Biphasic 115 21 Celiac Artery, Distal No Vis Sup Mes Artery Proximal Biphasic 427 91 Sup Mes Artery Middle Swain-Biphasic 100 17 Sup Mes Artery Distal Swain-Biphasic 64 15 Hepatic Artery No Vis Splenic [...] duplex Discussed with Dr. Kamara. Please page [phone] with any questions or concerns. 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 At [place], patient should be strict NPO. The plan as outlined above was discussed with Dr. Villa. Recommendations were discussed with primary team. Sis Keenan M.D. Fellow in Gastroenterology and Hepatology Pager #[phone] 07/06/2023 Associated attestation - Lashonda Villa MD [...] Lashonda Villa MD Gastroenterology and hepatology Pager: [phone] * Plan of Care - Olive Hernandez [...] Visceral Aorta 80 16 Celiac Artery, Proximal Swain-Biphasic 119 26 Celiac Artery, Mid Swain-Biphasic 115 21 Celiac Artery, Distal No Vis Sup Mes Artery Proximal Biphasic 427 91 Sup Mes Artery Middle Swain-Biphasic 100 17 Sup Mes Artery Distal Swain-Biphasic 64 15 Hepatic Artery No Vis Splenic [...] duplex Discussed with Dr. Kamara. Please page [phone] with any questions or concerns. Gauri Vega [...] Visceral Aorta 80 16 Celiac Artery, Proximal Swain-Biphasic 119 26 Celiac Artery, Mid Swain-Biphasic 115 21 Celiac Artery, Distal No Vis Sup Mes Artery Proximal Biphasic 427 91 Sup Mes Artery Middle Swain-Biphasic 100 17 Sup Mes Artery Distal Swain-Biphasic 64 15 Hepatic Artery No Vis Splenic [...] ASA) Discussed with Dr. Kamara. Please page [phone] with any questions or concerns. Gauri Vega [...] Visceral Aorta 80 16 Celiac Artery, Proximal Swain-Biphasic 119 26 Celiac Artery, Mid Swain-Biphasic 115 21 Celiac Artery, Distal No Vis Sup Mes Artery Proximal Biphasic 427 91 Sup Mes Artery Middle Swain-Biphasic 100 17 Sup Mes Artery Distal Swain-Biphasic 64 15 Hepatic Artery No Vis Splenic [...] 07/02/[address] Kamara. Please page [phone] with any questions or concerns. Gauri Vega [...] Visceral Aorta 80 16 Celiac Artery, Proximal Swain-Biphasic 119 26 Celiac Artery, Mid Swain-Biphasic 115 21 Celiac Artery, Distal No Vis Sup Mes Artery Proximal Biphasic 427 91 Sup Mes Artery Middle Swain-Biphasic 100 17 Sup Mes Artery Distal Swain-Biphasic 64 15 Hepatic Artery No Vis Splenic [...] tonight Discussed with Dr. Kamara. Please page [phone] with any questions or concerns. Gauri Vega [...] Visceral Aorta 80 16 Celiac Artery, Proximal Swain-Biphasic 119 26 Celiac Artery, Mid Swain-Biphasic 115 21 Celiac Artery, Distal No Vis Sup Mes Artery Proximal Biphasic 427 91 Sup Mes Artery Middle Swain-Biphasic 100 17 Sup Mes Artery Distal Swain-Biphasic 64 15 Hepatic Artery No Vis Splenic [...] Visceral Aorta 80 16 Celiac Artery, Proximal Swain-Biphasic 119 26 Celiac Artery, Mid Swain-Biphasic 115 21 Celiac Artery, Distal No Vis Sup Mes Artery Proximal Biphasic 427 91 Sup Mes Artery Middle Swain-Biphasic 100 17 Sup Mes Artery Distal Swain-Biphasic 64 15 Hepatic Artery No Vis Splenic [...] Dominguez PA - 06/28/2023 8:52 AM EDT [facility] Department of Cardiology Consult Progress Note Reason [...] consultation required. JOCY Langston-C Cardiovascular Medicine Pager [phone] 06/28/2023 Associated attestation - Klarissa Henderson MD [...] Tellez MD - 06/24/2023 2:14 PM EDT [facility] Department of Cardiology Consult Progress Note Reason [...] if further consultation required. 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 fluticasone propionate (FLONASE) 50 mcg/actuation [place], Suspension 1 spray by Each Nare route [...] No Patient is insured through: Primary Insurance: [employer] [place] [employer] [place] / Plan[place] / [...] other (see comments) (Has CPAP provided through [facility]) DME Needed at Discharge: No Patient is insured through: Primary Insurance: [employer] [place] [employer] [place] / Plan[place] / Product Type: *No Product type* / Secondary Insurance: N/A Plan for discharge is: Home w/o Services Outpatient Agency/Support Group Needs: None Agency Referrals: Not Applicable at this time. Transportation: taxi voucher Barriers to discharge: Discharge planning Plan going forward: [place] to [place] with family without services once medically ready. Care Management will continue to follow and assist with discharge planning and coordination of careas indicated. Anticipated Date of Discharge: 06/19/2023 BEA Killian, RN Inpatient Roaster Helper- Cardiology Office of Care Management Pager #: [phone] * Plan of Care - Olive Hernandez [...] COVID test: Lab Results Component Value Date [id number] Not Detected 06/13/2021 Past medical History: Past [...] In the past 12 months has the [employer], gas, oil, or water [employer] threatened to shut off services in your [...] other (see comments) (Has CPAP provided through [facility]) [address] [address] Social & Family Supports: All names listed [...] Specific Information: Has a CPAP provided by [place] [facility]/Prescription Coverage: Primary Insurance: [employer] [place] Pay[place] [employer] [place] / Plan: [employer] [place] / Product Type: *No Product type* / Secondary Insurance: N/A ; Prescription Coverage: Yes Preferred Pharmacy: [facility] [address] [address] [place], [place] - [address] [place] [address] [place] Status: Patient is a : No Primary Care Provider confirmed: JOCY Franco [phone] Patient/Caregiver Goals of Treatment: To figure out what is wrong Potential Needs for Transition of Care: other (see comments) ([facility] angyedy help) Agency Referrals: Not Applicable Transportation: no concerns Transportation Anticipated: agency ( can not drive , mother does not drive , Son does not have a car) Concerns to be Addressed: discharge planning Assessment: Patient is admitted to [facility] service for Chest pain Plan: May need [...] planning. 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 She has not had recent alf monitoring for arrhythmia, though unlikely, is possible [...] AM EDT Tech [place] [phone] Jose Cook 10/08/2023 9:30 AM EDT Office [place] [phone] MD [facility] [place] [address] 10/21/2023 10:30 AM EDT Appointment Nuclear Medicine at [place] [address] Mary Reyes, [facility] [place] [address] 10/21/2023 11:30 AM EDT Appointment Nuclear Medicine at [address] Mary Reyes [facility] [address] 10/21/2023 12:30 PM EDT Appointment Nuclear Medicine at [place] [phone] Mary Reyes [facility] [place] [address] 10/21/2023 1:30 PM EDT Appointment Nuclear Medicine at [place] [phone] Mary Reyes [facility] [place] [address] 10/21/2023 2:30 PM EDT Appointment [place] [phone] Mary Reyes [facility] [address] 10/26/2023 4:00 PM EDT Office Visit Cardiology at [address] [phone] Jaspreet Kinsey MD [facility] [place] [address] 10/28/2023 9:00 AM EDT Office [place] [address] 10/29/2023 10:00 AM EDT Clinical [place] [address] 10/29/2023 10:15 AM EDT Procedure [place] [address] 11/01/2023 5:00 PM EDT Office Visit Gastroenterology at [place] [phone] Selene Browning, PhD [facility] [place] [address] 11/22/2023 4:40 PM EDT Office Visit Cardiology at [address] [phone] Porsha Mcdaniels MD [facility] [place] [address] 12/13/2023 10:00 AM EDT Clinical [place] [address] [facility] [place] [address] Scheduled Orders Name Type Priority Associated Diagnoses [...] Routine 07/07/2023 2:25 PM EDT Colonoscopy, Biopsy ([id number]) 07/07/2023 2:10 PM EDT post prandial pain Upper Gi Endoscopy, Biopsy ([id number]) 07/07/2023 2:10 PM EDT post prandial pain [...] Glucose Lvl 111 65 - 199 mg/dL [facility] Comment:Diabetes: >=200 mg/d L plus symptoms BUN 29(H) 8 - 18 mg/dL [facility] Creatinine 1.41(H) 0.70 - 1.20 mg/dL [facility] Sodium 140 135 - 145 mmol/L [facility] Potassium 3.6 3.5 - 5.0 mmol/L [facility] Comment: Please note: ??Patients with WBC >100,000 may have falsely elevated Potassium levels. ??For accurate Potassium quantification in these patients send serum separator tube (gold top) for subsequent determinations. ??Contact the Clinical Chemistry Laboratory if there are any questions. Chloride 99 98 - 107 mmol/L [facility] CO2 29 22 - 31 mmol/L [facility] Anion Gap 12 5 - 15 mmol/L [facility] Calcium 10.0 8.5 - 10.5 mg/dL [facility] Estimated GFR 44(L) >=60 mL/min/1. 73 m?? [facility] [...] In Lab Terrence Keating MD CHEMISTRY ORDERABLES [facility] [place] [address] * Differential, Automated (07/09/2023 3:03 AM EDT) Neutrophils % 51.4 % [facility] Neutr Abs (ANC) 3.43 1.70 - 6.10 x10(3)/[facility] Lymphocytes % 31.4 % [facility] Lymphocytes Abs 2.1 0.9 - 3.2 x10(3)/[facility] Monocytes % 10.1 % [facility] Monocyte Abs 0.7 0.3 - 0.9 x10(3)/[facility] Eosinophils % 6.0 % [facility] Eosinophils Abs 0.4 0.0 - 0.4 x10(3)/[facility] Basophils % 0.8 % [facility] Basophils Abs 0.0 0.0 - 0.1 x10(3)/[facility] Immature Gran % 0.30 % [facility] Comment: Immature granulocytes(IG's)percentage and absolute count will include metamyelocytes, myelocytes, and promyelocytes. Blood smears from CBCs yielding IG's will be scanned manually for concordance. If this scan disagrees with the automated IG or if promyelocytes are noted, a manual differential will be performed. Shonda Gran Abs 0.02 0.00 - 0.04 x10(3)/[facility] Blood 07/09/2023 3:03 AM EDT 07/09/2023 3:14 AM EDT Narrative Resulting Agency Comment Spec In Lab Terrence Keating MD HEMATOLOGY ORDERABLE S [facility] [place] [address] * (ABNORMAL) Hemogram (07/09/2023 3:03 AM EDT) WBC 6.7 4.0 - 9.5 x10(3)/[facility] RBC 3.87(L) 4.00 - 5.21 x10(6)/[facility] Hemoglobin 12.4 11.7 - 15.5 g/dL [facility] Hematocrit 36.8 35.7 - 45.8 % [facility] MCV 95.1(H) 82.6 - 94.4 fL [facility] MCH 32.0 27.1 - 32.0 pg [facility] MCHC 33.7 31.7 - 35.0 g/dL [facility] Platelets 209 145 - 357 x10(3)/[facility] RDWSD 47.9(H) 37.0 - 46.0 fL [facility] RDWCV 13.7 11.5 - 14.1 % [facility] MPV 10.5 7.6 - 12.9 [facility] nRBC % Auto 0.0 % [facility] nRBC Abs Auto 0.000 0.000 - 0.000 x10(3)/[facility] Blood 07/09/2023 3:03 AM EDT 07/09/2023 3:14 AM EDT Narrative Resulting Agency Comment Spec In Lab Terrence Keating MD HEMATOLOGY ORDERABLE S [facility] [place] [address] * Heparin (unfractionated) Level (07/09/2023 3:03 AM EDT) Heparin UFH Level 0.52 IU/mL [facility] Comment: Heparin (anti-Xa) levels [...] Lab Ailyn Irvin MD HEMATOLOGY ORDERABLE S [facility] [place] [address] * (ABNORMAL) Basic Metabolic Panel (non-fasting) (07/09/2023 3:03 AM EDT) Glucose Lvl 100 65 - 199 mg/dL [facility] Comment:Diabetes: >=200 mg/d L plus symptoms BUN 12 8 - 18 mg/dL [facility] Creatinine 1.24(H) 0.70 - 1.20 mg/dL [facility] [...] questions. Chloride 104 98 - 107 mmol/L [facility] CO2 22 22 - 31 mmol/L [facility] Anion Gap 12 5 - 15 mmol/L [facility] Calcium 9.3 8.5 - 10.5 mg/dL [facility] Estimated GFR 52(L) >=60 mL/min/1. 73 m?? [facility] [...] MD CHEMISTRY ORDERABL ES Performing Organization Address City/[facility]/ZIP Co de Phone Number [facility] [place] [address] * Phosphorus (07/09/2023 3:03 AM EDT) Phosphorus 4.5 2.5 - 4.5 mg/dL [facility] Blood 07/09/2023 3:03 AM EDT 07/09/2023 3:14 AM EDT Narrative Resulting Agency Comment Spec In Lab Eufemia Copeland MD CHEMISTRY ORDERABL ES Performing Organization Address [facility] Co de Phone Number [facility] [place] [address] * Magnesium (07/09/2023 3:03 AM EDT) Magnesium 0.91 0.69 - 1.07 mmol/L [facility] Blood 07/09/2023 3:03 AM EDT 07/09/2023 3:14 AM EDT Narrative Resulting Agency Comment Spec In Lab Eufemia Copeland MD CHEMISTRY ORDERABL ES Performing Organization Address [facility] Co de Phone Number [facility] [place] [address] * Heparin (unfractionated) Level (07/08/2023 12:02 PM EDT) Heparin UFH Level 0.45 IU/mL [facility] Comment: Heparin (anti-Xa) levels [...] MD HEMATOLOGY ORDERABLE S Performing Organization Address City/[facility]/ZIP Co de Phone Number [facility] [place] [phone] * EKG 12 Lead (07/08/2023 9:58 AM EDT) Ventricular rate 66 BPM MUSE SYSTEM Atrial Rate 66 BPM MUSE SYSTEM P-R Interval 178 ms MUSE SYSTEM QRS Duration 92 ms MUSE SYSTEM Q-T Interval 486 ms MUSE SYSTEM QTC Calculated (Bezet) 509 ms MUSE SYSTEM Calculated P [place] 29 degrees MUSE SYSTEM Calculated R [place] 33 degrees MUSE SYSTEM Calculated T [place] 29 degrees MUSE SYSTEM INTERPRETATION Normal sinus rhythm Nonspecific ST and T wave abnormality Prolonged QT Abnormal ECG When compared with ECG of 04-JUL-2023 11:41, Criteria for Septal infarct are no longer Present I personally reviewed the tracing and edited the fellows interpretation Confirmed by fellow MD Keyshawn, Katalina ([id number]) on 07/08/2023 3:18:07 PM Confirmed by MD Henderson Katharine ([id number]) on 07/09/2023 6:15:21 AM MUSE SYSTEM 07/08/2023 9:58 AM EDT 07/09/2023 6:15 AM EDT Lisa Beck MD ECG ORDERABLES Performing Organization Address City/[facility]/ZIP Co de Phone Number MUSE SYSTEM * Differential, Automated (07/08/2023 5:52 AM EDT) Neutrophils % 60.6 % [facility] Neutr Abs (ANC) 4.42 1.70 - 6.10 x10(3)/[facility] Lymphocytes % 24.8 % [facility] Lymphocytes Abs 1.8 0.9 - 3.2 x10(3)/[facility] Monocytes % 9.2 % [facility] Monocyte Abs 0.7 0.3 - 0.9 x10(3)/[facility] Eosinophils % 4.5 % [facility] Eosinophils Abs 0.3 0.0 - 0.4 x10(3)/[facility] Basophils % 0.5 % [facility] Basophils Abs 0.0 0.0 - 0.1 x10(3)/[facility] Immature Gran % 0.40 % [facility] Comment: Immature granulocytes(IG's)percentage and absolute count will include metamyelocytes, myelocytes, and promyelocytes. Blood smears from CBCs yielding IG's will be scanned manually for concordance. If this scan disagrees with the automated IG or if promyelocytes are noted, a manual differential will be performed. Shonda Gran Abs 0.03 0.00 - 0.04 x10(3)/[facility] Blood 07/08/2023 5:52 AM EDT 07/08/2023 5:58 AM EDT Narrative Resulting Agency Comment Spec In Lab Terrence Keating MD HEMATOLOGY ORDERABLE S [facility] [place] [address] * (ABNORMAL) Hemogram (07/08/2023 5:52 AM EDT) WBC 7.3 4.0 - 9.5 x10(3)/[facility] RBC 3.94(L) 4.00 - 5.21 x10(6)/[facility] Hemoglobin 12.3 11.7 - 15.5 g/dL [facility] Hematocrit 36.3 35.7 - 45.8 % [facility] MCV 92.1 82.6 - 94.4 fL [facility] MCH 31.2 27.1 - 32.0 pg [facility] MCHC 33.9 31.7 - 35.0 g/dL [facility] Platelets 207 145 - 357 x10(3)/[facility] RDWSD 44.6 37.0 - 46.0 fL [facility] RDWCV 13.3 11.5 - 14.1 % [facility] MPV 10.5 7.6 - 12.9 [facility] nRBC % Auto 0.0 % [facility] nRBC Abs Auto 0.000 0.000 - 0.000 x10(3)/[facility] Blood 07/08/2023 5:52 AM EDT 07/08/2023 5:58 AM EDT Narrative Resulting Agency Comment Spec In Lab Terrence Keating MD HEMATOLOGY ORDERABLE S [facility] [place] [address] * Heparin (unfractionated) Level (07/08/2023 5:52 AM EDT) Heparin UFH Level 0.37 IU/mL [facility] Comment: Heparin (anti-Xa) levels [...] Lab Ailyn Irvin MD HEMATOLOGY ORDERABLE S [facility] [place] [address] * (ABNORMAL) Basic Metabolic Panel (non-fasting) (07/08/2023 5:52 AM EDT) Glucose Lvl 102 65 - 199 mg/dL [facility] Comment:Diabetes: >=200 mg/d L plus symptoms BUN 14 8 - 18 mg/dL [facility] Creatinine 1.30(H) 0.70 - 1.20 mg/dL [facility] Sodium 139 135 - 145 mmol/L [facility] Potassium 3.2(L) 3.5 - 5.0 mmol/L [facility] Comment: Please note: ??Patients with WBC >100,000 may have falsely elevated Potassium levels. ??For accurate Potassium quantification in these patients send serum separator tube (gold top) for subsequent determinations. ??Contact the Clinical Chemistry Laboratory if there are any questions. Chloride 101 98 - 107 mmol/L [facility] CO2 25 22 - 31 mmol/L [facility] Anion Gap 13 5 - 15 mmol/L [facility] Calcium 9.3 8.5 - 10.5 mg/dL [facility] Estimated GFR 49(L) >=60 mL/min/1. 73 m?? [facility] [...] CHEMISTRY ORDERABL ES Performing Organization Address [facility] Co de Phone Number [facility] [place] [address] * Phosphorus (07/08/2023 5:52 AM EDT) Phosphorus 4.3 2.5 - 4.5 mg/dL [facility] Blood 07/08/2023 5:52 AM EDT 07/08/2023 5:58 AM EDT Narrative Resulting Agency Comment Spec In Lab Eufemia Copeland MD CHEMISTRY ORDERABL ES Performing Organization Address [facility] Co de Phone Number [facility] [place] [address] * Magnesium (07/08/2023 5:52 AM EDT) Magnesium 0.89 0.69 - 1.07 mmol/L [facility] Blood 07/08/2023 5:52 AM EDT 07/08/2023 5:58 AM EDT Narrative Resulting Agency Comment Spec In Lab Eufemia Copeland MD CHEMISTRY ORDERABL ES Performing Organization Address [facility] Co de Phone Number [facility] [place] [address] * Heparin (unfractionated) Level (07/08/2023 12:00 AM EDT) Heparin UFH Level 0.22 IU/mL [facility] Comment: Heparin (anti-Xa) levels [...] MD HEMATOLOGY ORDERABLE S Performing Organization Address [facility] de Phone Number [facility] [place] [address] * Specimen to Pathology (07/07/2023 2:55 PM EDT) AP Specimen 07/07/2023 2:55 PM EDT 07/07/2023 2:55 PM EDT Narrative [facility] - 07/07/2023 2:55 PM EDT Specimen requisition ordered. ??Separate Pathology report to follow Terrence Keating MD PATHOLOGY/CYTOLOGY O RUMA Performing Organization Address [facility] Co de Phone Number [facility] [place] [address] * Specimen to Pathology (07/07/2023 2:38 PM EDT) AP Specimen 07/07/2023 2:38 PM EDT 07/07/2023 2:38 PM EDT Narrative [facility] - 07/07/2023 2:38 PM EDT Specimen requisition ordered. ??Separate Pathology report to follow Terrence Keating MD PATHOLOGY/CYTOLOGY O RUMA Performing Organization Address [facility]/State/ZIP Co de Phone Number [facility] [place] [address] * Specimen to Pathology (07/07/2023 2:38 PM EDT) AP Specimen 07/07/2023 2:38 PM EDT 07/07/2023 2:38 PM EDT Narrative [facility] - 07/07/2023 2:38 PM EDT Specimen requisition ordered. ??Separate Pathology report to follow Terrence Keating MD PATHOLOGY/CYTOLOGY O RDERAFADUMO [facility] [place] [address] * Surgical Pathology Report (07/07/2023 2:25 PM EDT) Surgical Pathology Report [id number] ? Location: [facility]; [facility]; A The signing pathologist has (i) [...] Sapna Verified: ??07/19/2023 13:25 ??Pathologist Performed at: ??-[facility] Dept. of Pathology, [place] [address] Specialty Therapist: Vangie Lu MD, FCAP, ??CLIA Certificate: [id number] SPECIMEN(S) SUBMITTED A - duodenal biopsies rule [...] toto ??in 2 cassettes labeled C1-C2. ??sdy [facility] 07/07/2023 2:25 PM EDT Lashonda Villa MD PATHOLOGY/CYTOLOGY O ALVAERAFADUMO [facility] [place] [address] * COLONOSCOPY (07/07/2023 1:39 PM EDT) COLONOSCOPY [facility] Procedure Date: 07/07/2023 1:39 PM ? Patient Name: Loida Roque ? Date of : 1970 ? Age: 53 ? Order #: [id number] ? Instrument Name: [id number] ? Procedure: ? Colonoscopy Indications: ? Abdominal pain, Diarrhea Providers: ? Lashonda Villa MD, [place] ? Mercedes [place] Agan Referring MD: [...] ? was evaluated using the BBPS ? (Wendell Bowel Preparation Scale) ? with scores of: [...] Procedure Code(s): ? --- Professional --- ? 39835, Colonoscopy, flexible; with ? biopsy, single or multiple CPT copyright 2021 [employer]. All rights reserved. The codes documented in this report are preliminary and upon line installer review may be revised to meet current [...] 1 EIA Negative for Shiga Toxin 2 [facility] Stool 07/07/2023 12:1 0 PM EDT 07/07/2023 12:53 PM EDT Narrative Resulting Agency Comment Spec In Lab Ailyn Irvin MD MICROBIOLOGY - GENER AL ORDERABLES Performing Organization Address [facility] de Phone Number [facility] [place] [address] * Campylobacter Antigen (07/07/2023 12:10 PM EDT) Campylobacter Ag Immunoassay Negative for Campylobacter Antigen [facility] Stool 07/07/2023 12:1 0 PM EDT 07/07/2023 12:53 PM EDT Narrative Resulting Agency Comment Spec In Lab Ailyn Irvin MD MICROBIOLOGY - GENER AL ORDERABLES Performing Organization Address [facility] Co de Phone Number [facility] [place] [address] * Stool culture (07/07/2023 12:10 PM EDT) Stool Culture No enteric pathogens isolated [facility] Stool 07/07/2023 12:1 0 PM EDT 07/07/2023 12:53 PM EDT Narrative Resulting Agency Comment Spec In Lab Ailyn Irvin MD MICROBIOLOGY - GENER AL ORDERABLES Performing Organization Address [facility] Co de Phone Number [facility] [place] [address] * (ABNORMAL) Differential, Automated (07/07/2023 3:51 AM EDT) Neutrophils % 58.9 % [facility] Neutr Abs (ANC) 4.67 1.70 - 6.10 x10(3)/[facility] LAB[facility] Lymphocytes % 24.8 % [facility] Lymphocytes Abs 2.0 0.9 - 3.2 x10(3)/[facility] LAB[facility]ORY Monocytes % 9.4 % [facility] Monocyte Abs 0.7 0.3 - 0.9 x10(3)/[facility] LAB[facility]ORY Eosinophils % 6.1 % [facility] Eosinophils Abs 0.5(H) 0.0 - 0.4 x10(3)/[facility] LABORATORY Basophils % 0.5 % [facility] Basophils Abs 0.0 0.0 - 0.1 x10(3)/[facility] Immature Gran % 0.30 % [facility] Comment: Immature granulocytes(IG's)percentage and absolute count will include metamyelocytes, myelocytes, and promyelocytes. Blood smears from CBCs yielding IG's will be scanned manually for concordance. If this scan disagrees with the automated IG or if promyelocytes are noted, a manual differential will be performed. Shonda Gran Abs 0.02 0.00 - 0.04 x10(3)/[facility] LAB[facility]ATORY Blood 07/07/2023 3:51 AM EDT 07/07/2023 4:08 AM EDT Narrative Resulting Agency Comment Spec In Lab Terrence Keating MD HEMATOLOGY ORDERABLE S [facility] [place] [address] * Hemogram (07/07/2023 3:51 AM EDT) WBC 7.9 4.0 - 9.5 x10(3)/[facility] LABORATORY RBC 4.42 4.00 - 5.21 x10(6)/[facility] LAB[facility]ORY Hemoglobin 13.8 11.7 - 15.5 g/dL [facility] Hematocrit 41.0 35.7 - 45.8 % [facility] MCV 92.8 82.6 - 94.4 [facility] LAB[facility]ATORY MCH 31.2 27.1 - 32.0 pg [facility] MCHC 33.7 31.7 - 35.0 g/dL [facility] Platelets 255 145 - 357 x10(3)/[facility] LABORATORY RDWSD 44.8 37.0 - 46.0 [facility] LAB[facility]ATORY RDWCV 13.2 11.5 - 14.1 % [facility] MPV 10.6 7.6 - 12.9 [facility] LAB[facility]ORY nRBC % Auto 0.0 % [facility] nRBC Abs Auto 0.000 0.000 - 0.000 x10(3)/[facility] LAB[facility]ORY Blood 07/07/2023 3:51 AM EDT 07/07/2023 4:08 AM EDT Narrative Resulting Agency Comment Spec In Lab Terrence Keating MD HEMATOLOGY ORDERABLE S [facility] [place] [address] * Heparin (unfractionated) Level (07/07/2023 3:51 AM EDT) Heparin UFH Level 0.33 IU/mL [facility] Comment: Heparin (anti-Xa) levels [...] Lab Terrence Keating MD HEMATOLOGY ORDERABLE S [facility] [place] [address] * (ABNORMAL) Basic Metabolic Panel (non-fasting) (07/07/2023 3:51 AM EDT) Glucose Lvl 101 65 - 199 mg/dL [facility] Comment:Diabetes: >=200 mg/d L plus symptoms BUN 18 8 - 18 mg/dL [facility] Creatinine 1.30(H) 0.70 - 1.20 mg/dL [facility] Sodium 135 135 - 145 mmol/L [facility] Potassium 3.5 3.5 - 5.0 mmol/L [facility] Comment: Please note: ??Patients with WBC >100,000 may have falsely elevated Potassium levels. ??For accurate Potassium quantification in these patients send serum separator tube (gold top) for subsequent determinations. ??Contact the Clinical Chemistry Laboratory if there are any questions. Chloride 96(L) 98 - 107 mmol/L [facility] CO2 23 22 - 31 mmol/L [facility] Anion Gap 16(H) 5 - 15 mmol/L [facility] Calcium 9.4 8.5 - 10.5 mg/dL [facility] Estimated GFR 49(L) >=60 mL/min/1. 73 m?? [facility] [...] MD CHEMISTRY ORDERABL ES Performing Organization Address City/[facility]/ZIP Co de Phone Number [facility] [place] [address] * Phosphorus (07/07/2023 3:51 AM EDT) Phosphorus 4.0 2.5 - 4.5 mg/dL [facility] Blood 07/07/2023 3:51 AM EDT 07/07/2023 4:08 AM EDT Narrative Resulting Agency Comment Spec In Lab Eufemia Copeland MD CHEMISTRY ORDERABL ES Performing Organization Address [facility] Co de Phone Number [facility] [place] [address] * Magnesium (07/07/2023 3:51 AM EDT) Magnesium 0.87 0.69 - 1.07 mmol/L [facility] Blood 07/07/2023 3:51 AM EDT 07/07/2023 4:08 AM EDT Narrative Resulting Agency Comment Spec In Lab Eufemia Copeland MD CHEMISTRY ORDERABL ES Performing Organization Address [facility] Co de Phone Number [facility] [place] [address] * Hepatic Function Panel (07/07/2023 3:51 AM EDT) Total Protein 7.5 6.1 - 8.0 g/dL [facility] Albumin 4.4 3.2 - 5.2 g/dL [facility] AST 15 0 - 30 unit/L [facility] ALT 20 0 - 30 unit/L [facility] Alk Phos 54 35 - 105 unit/L [facility] Total Bilirubin 0.4 0.2 - 1.3 mg/dL [facility] Bili, Direct 0.1 0.0 - 0.3 mg/dL [facility] Blood 07/07/2023 3:51 AM EDT 07/07/2023 4:08 AM EDT Narrative Resulting Agency Comment Spec In Lab Ailyn Irvin MD CHEMISTRY ORDERABLES Performing Organization Address [facility] Co de Phone Number [facility] [place] [address] * Giardia/Cryptosporidium Antigens ([facility]/CGP/APD/NLH) (07/07/2023 12:38 AM EDT) Giardia Screen Negative Negative [facility] Comment:Examination for othe r intestinal parasites requires foreign travel history. Cryptosporidium Screen Negative Negative [facility] Stool 07/07/2023 12:3 8 AM EDT 07/07/2023 7:56 AM EDT Narrative Resulting Agency Comment Spec In Lab Ailyn Irvin MD MICROBIOLOGY - GENER AL ORDERABLES Performing Organization Address City/[facility]/ZIP Co de Phone Number [facility] [place] [address] * Hepatic Function Panel (07/06/2023 3:41 PM EDT) Total Protein 7.6 6.1 - 8.0 g/dL [facility] Albumin 4.3 3.2 - 5.2 g/dL [facility] AST 20 0 - 30 unit/L [facility] ALT 22 0 - 30 unit/L [facility] Alk Phos 58 35 - 105 unit/L [facility] Total Bilirubin 0.4 0.2 - 1.3 mg/dL [facility] Bili, Direct 0.1 0.0 - 0.3 mg/dL [facility] Blood 07/06/2023 3:41 PM EDT 07/06/2023 4:00 PM EDT Narrative Resulting Agency Comment Spec In Lab Terrence Keating MD CHEMISTRY ORDERABLES Performing Organization Address City/[facility] Co de Phone Number [facility] [place] [address] * Hepatic Function Panel (07/06/2023 3:54 AM EDT) Total Protein 7.6 6.1 - 8.0 g/dL [facility] Albumin 4.3 3.2 - 5.2 g/dL [facility] AST Not Perf 0 - 30 [facility] Comment: Unable to quantitate due to sample hemolysis. ??Sample redraw suggested. Called by: abimbola, Read back by: Ana Paula Borja, Date/Time:07/06/23 14:08. ALT 25 0 - 30 unit/L [facility] Alk Phos 58 35 - 105 unit/L [facility] Total Bilirubin 0.4 0.2 - 1.3 mg/dL [facility] Bili, Direct Not Perf 0.0 - 0.3 [facility] Blood Venous Draw / Unknown 07/06/2023 3:54 AM EDT 07/06/2023 4:18 AM EDT Narrative Resulting Agency Comment Spec In Lab Terrence Keating MD CHEMISTRY ORDERABLES Performing Organization Address City/[facility]/ZIP Co de Phone Number [facility] [place] [address] * (ABNORMAL) Differential, Automated (07/06/2023 3:54 AM EDT) Neutrophils % 56.6 % [facility] Neutr Abs (ANC) 4.34 1.70 - 6.10 x10(3)/[facility] LABORATORY Lymphocytes % 26.1 % [facility] Lymphocytes Abs 2.0 0.9 - 3.2 x10(3)/[facility] LAB[facility]ATORY Monocytes % 9.6 % [facility] Monocyte Abs 0.7 0.3 - 0.9 x10(3)/[facility] LAB[facility] Eosinophils % 6.6 % [facility] Eosinophils Abs 0.5(H) 0.0 - 0.4 x10(3)/[facility] LAB[facility]ATORY Basophils % 0.7 % [facility] Basophils Abs 0.0 0.0 - 0.1 x10(3)/[facility] LABORATORY Immature Gran % 0.40 % [facility] Comment: Immature granulocytes(IG's)percentage and absolute count will include metamyelocytes, myelocytes, and promyelocytes. Blood smears from CBCs yielding IG's will be scanned manually for concordance. If this scan disagrees with the automated IG or if promyelocytes are noted, a manual differential will be performed. Shonda Gran Abs 0.03 0.00 - 0.04 x10(3)/[facility] LAB[facility]ATORY Blood 07/06/2023 3:54 AM EDT 07/06/2023 4:12 AM EDT Narrative Resulting Agency Comment Spec In Lab Terrence Keating MD HEMATOLOGY ORDERABLE S [facility] [place] [address] * (ABNORMAL) Hemogram (07/06/2023 3:54 AM EDT) WBC 7.7 4.0 - 9.5 x10(3)/[facility] LABORATORY RBC 4.62 4.00 - 5.21 x10(6)/[facility]ORY Hemoglobin 14.7 11.7 - 15.5 g/dL [facility] Hematocrit 43.8 35.7 - 45.8 % [facility] MCV 94.8(H) 82.6 - 94.4 [facility]ORY MCH 31.8 27.1 - 32.0 pg [facility] MCHC 33.6 31.7 - 35.0 g/dL [facility] Platelets 243 145 - 357 x10(3)/[facility] LABORATORY RDWSD 47.2(H) 37.0 - 46.0 [facility] RDWCV 13.5 11.5 - 14.1 % [facility] MPV 10.4 7.6 - 12.9 [facility] LAB[facility] nRBC % Auto 0.0 % [facility] nRBC Abs Auto 0.000 0.000 - 0.000 x10(3)/[facility] LAB[facility] Blood 07/06/2023 3:54 AM EDT 07/06/2023 4:12 AM EDT Narrative Resulting Agency Comment Spec In Lab Terrence Keating MD HEMATOLOGY ORDERABLE S [facility] [place] [address] * (ABNORMAL) Basic Metabolic Panel (non-fasting) (07/06/2023 3:54 AM EDT) Glucose Lvl 107 65 - 199 mg/dL [facility] Comment:Diabetes: >=200 mg/d L plus symptoms BUN 16 8 - 18 mg/dL [facility] Creatinine 1.25(H) 0.70 - 1.20 mg/dL [facility] Sodium 135 135 - 145 mmol/L [facility] Potassium 3.9 3.5 - 5.0 mmol/L [facility] Comment: Please note: ??Patients with WBC >100,000 may have falsely elevated Potassium levels. ??For accurate Potassium quantification in these patients send serum separator tube (gold top) for subsequent determinations. ??Contact the Clinical Chemistry Laboratory if there are any questions. Chloride 98 98 - 107 mmol/L [facility] CO2 23 22 - 31 mmol/L [facility] Anion Gap 14 5 - 15 mmol/L [facility] Calcium 10.0 8.5 - 10.5 mg/dL [facility] Estimated GFR 51(L) >=60 mL/min/1. 73 m?? [facility] [...] CHEMISTRY ORDERABL ES Performing Organization Address [facility]/ZIP Co de Phone Number [facility] [place] [address] * Phosphorus (07/06/2023 3:54 AM EDT) Phosphorus 4.5 2.5 - 4.5 mg/dL [facility] Blood 07/06/2023 3:54 AM EDT 07/06/2023 4:18 AM EDT Narrative Resulting Agency Comment Spec In Lab Eufemia Copeland MD CHEMISTRY ORDERABL ES Performing Organization Address City/[facility]/ZIP Co de Phone Number [facility] [place] [address] * Magnesium (07/06/2023 3:54 AM EDT) Magnesium 0.97 0.69 - 1.07 mmol/L [facility] Blood 07/06/2023 3:54 AM EDT 07/06/2023 4:18 AM EDT Narrative Resulting Agency Comment Spec In Lab Eufemia Copeland MD CHEMISTRY ORDERABL ES Performing Organization Address [facility]/ZIP Co de Phone Number [facility] [place] [address] * Heparin (unfractionated) Level (07/06/2023 3:54 AM EDT) Pathologist [facility] Heparin UFH Level 0.31 IU/mL [facility] Comment: Heparin (anti-Xa) levels [...] Lab Ailyn Irvin MD HEMATOLOGY ORDERABLE S [facility] [place] [address] * Amylase (07/05/2023 5:44 PM EDT) Amylase 35 28 - 100 unit/L [facility] Blood 07/05/2023 5:44 PM EDT 07/05/2023 6:00 PM EDT Narrative Resulting Agency Comment Spec In Lab Terrence Keating MD CHEMISTRY ORDERABLES Performing Organization Address [facility] Co de Phone Number [facility] [place] [address] * Lipase (07/05/2023 5:44 PM EDT) Lipase 17 0 - 60 unit/L [facility] Blood 07/05/2023 5:44 PM EDT 07/05/2023 6:00 PM EDT Narrative Resulting Agency Comment Spec In Lab Terrence Keating MD CHEMISTRY ORDERABLES Performing Organization Address [facility] de Phone Number [facility] [place] [address] * (ABNORMAL) Basic Metabolic Panel (non-fasting) (07/05/2023 5:44 PM EDT) Glucose Lvl 130 65 - 199 mg/dL [facility] Comment:Diabetes: >=200 mg/d L plus symptoms BUN 17 8 - 18 mg/dL [facility] Creatinine 1.30(H) 0.70 - 1.20 mg/dL [facility] Sodium 134(L) 135 - 145 mmol/L [facility] Potassium 3.7 3.5 - 5.0 mmol/L [facility] Comment: Please note: ??Patients with WBC >100,000 may have falsely elevated Potassium levels. ??For accurate Potassium quantification in these patients send serum separator tube (gold top) for subsequent determinations. ??Contact the Clinical Chemistry Laboratory if there are any questions. Chloride 98 98 - 107 mmol/L [facility] CO2 21(L) 22 - 31 mmol/L [facility] Anion Gap 15 5 - 15 mmol/L [facility] Calcium 9.6 8.5 - 10.5 mg/dL [facility] Estimated GFR 49(L) >=60 mL/min/1. 73 m?? [facility] [...] Keating MD CHEMISTRY ORDERABLES Performing Organization Address City/State/[facility] Co or Phone Number [facility] [place] [address] * Duplex Study Visceral Arteries, Comp (07/05/2023 9:46 AM EDT) VB Text Report Department: Vascular Surgery Lab Patient: [id number] (LOIDA ROQUE) CPT: [id number] Referring Physician: TERRENCE KEATING ?? Phone: Indications: [...] ?Bi-Triphasic ?101 ?11 ?? Hepatic Artery ? Swain-Biphasic ? 123 ?23 ?? Splenic Artery ? Swain-Biphasic ? 122 ?24 ?? Inf Mes Artery [...] 5:05 AM EDT) Neutrophils % 63.0 % [facility] Neutr Abs (ANC) 5.59 1.70 - 6.10 x10(3)/[facility] Lymphocytes % 22.4 % [facility] Lymphocytes Abs 2.0 0.9 - 3.2 x10(3)/[facility] LAB[facility] Monocytes % 9.7 % [facility] Monocyte Abs 0.9 0.3 - 0.9 x10(3)/[facility] LAB[facility]ORY Eosinophils % 4.1 % [facility] Eosinophils Abs 0.4 0.0 - 0.4 x10(3)/[facility] LAB[facility] Basophils % 0.6 % [facility] Basophils Abs 0.0 0.0 - 0.1 x10(3)/[facility] LAB[facility]ORY Immature Gran % 0.20 % [facility] Comment: Immature granulocytes(IG's)percentage and absolute count will include metamyelocytes, myelocytes, and promyelocytes. Blood smears from CBCs yielding IG's will be scanned manually for concordance. If this scan disagrees with the automated IG or if promyelocytes are noted, a manual differential will be performed. Shonda Gran Abs 0.02 0.00 - 0.04 x10(3)/[facility] Blood 07/05/2023 5:05 AM EDT 07/05/2023 5:17 AM EDT Narrative Resulting Agency Comment Spec In Lab Terrence Keating MD HEMATOLOGY ORDERABLE S [facility] [place] [address] * (ABNORMAL) Hemogram (07/05/2023 5:05 AM EDT) WBC 8.9 4.0 - 9.5 x10(3)/[facility] LAB[facility]ATORY RBC 4.42 4.00 - 5.21 x10(6)/[facility]ORY Hemoglobin 13.7 11.7 - 15.5 g/dL [facility] Hematocrit 41.4 35.7 - 45.8 % [facility] MCV 93.7 82.6 - 94.4 fL [facility] MCH 31.0 27.1 - 32.0 pg [facility] MCHC 33.1 31.7 - 35.0 g/dL [facility] Platelets 245 145 - 357 x10(3)/[facility] LABORATORY RDWSD 47.1(H) 37.0 - 46.0 fL [facility] RDWCV 13.7 11.5 - 14.1 % [facility] MPV 10.8 7.6 - 12.9 [facility] LABORATORY nRBC % Auto 0.0 % [facility] nRBC Abs Auto 0.000 0.000 - 0.000 x10(3)/[facility] Blood 07/05/2023 5:05 AM EDT 07/05/2023 5:17 AM EDT Narrative Resulting Agency Comment Spec In Lab Terrence Keating MD HEMATOLOGY ORDERABLE S Performing Organization Address City/State/[facility] Co de Phone Number [facility] [place] [address] * Heparin (unfractionated) Level (07/05/2023 5:05 AM EDT) Heparin UFH Level 0.35 IU/mL [facility] Comment: Heparin (anti-Xa) levels [...] Lab Ailyn Irvin MD HEMATOLOGY ORDERABLE S [facility] [place] [address] * (ABNORMAL) Basic Metabolic Panel (non-fasting) (07/05/2023 5:05 AM EDT) Glucose Lvl 114 65 - 199 mg/dL [facility] Comment:Diabetes: >=200 mg/d L plus symptoms BUN 19(H) 8 - 18 mg/dL [facility] Creatinine 1.51(H) 0.70 - 1.20 mg/dL [facility] Sodium 134(L) 135 - 145 mmol/L [facility] Potassium 3.8 3.5 - 5.0 mmol/L [facility] Comment: Please note: ??Patients with WBC >100,000 may have falsely elevated Potassium levels. ??For accurate Potassium quantification in these patients send serum separator tube (gold top) for subsequent determinations. ??Contact the Clinical Chemistry Laboratory if there are any questions. Chloride 97(L) 98 - 107 mmol/L [facility] CO2 25 22 - 31 mmol/L [facility] Anion Gap 12 5 - 15 mmol/L [facility] Calcium 10.0 8.5 - 10.5 mg/dL [facility] Estimated GFR 41(L) >=60 mL/min/1. 73 m?? [facility] [...] CHEMISTRY ORDERABL ES Performing Organization Address [facility]/ZIP Co de Phone Number [facility] [place] [address] * (ABNORMAL) Phosphorus (07/05/2023 5:05 AM EDT) Phosphorus 5.0(H) 2.5 - 4.5 mg/dL [facility] Blood 07/05/2023 5:05 AM EDT 07/05/2023 5:17 AM EDT Narrative Resulting Agency Comment Spec In Lab Eufemia Copeland MD CHEMISTRY ORDERABL ES Performing Organization Address [facility] Co de Phone Number [facility] [place] [address] * Magnesium (07/05/2023 5:05 AM EDT) Magnesium 1.01 0.69 - 1.07 mmol/L [facility] Blood 07/05/2023 5:05 AM EDT 07/05/2023 5:17 AM EDT Narrative Resulting Agency Comment Spec In Lab Eufemia Copeland MD CHEMISTRY ORDERABL ES Performing Organization Address [facility]/ZIP Co de Phone Number [facility] [place] [address] * EKG 12 Lead (07/04/2023 11:41 AM EDT) Ventricular rate 76 BPM MUSE SYSTEM Atrial Rate 76 BPM MUSE SYSTEM P-R Interval 174 ms MUSE SYSTEM QRS Duration 88 ms MUSE SYSTEM Q-T Interval 450 ms MUSE SYSTEM QTC Calculated (Bezet) 506 ms MUSE SYSTEM Calculated P [place] 36 degrees MUSE SYSTEM Calculated R [place] 35 degrees MUSE SYSTEM Calculated T [place] 37 degrees MUSE SYSTEM INTERPRETATION Normal sinus [...] Differential, Automated (07/04/2023 3:47 AM EDT) Pathologist [facility] Neutrophils % 63.5 % [facility] Neutr Abs (ANC) 5.19 1.70 - 6.10 x10(3)/[facility] LAB[facility]ORY Lymphocytes % 24.4 % [facility] Lymphocytes Abs 2.0 0.9 - 3.2 x10(3)/[facility] LAB[facility]ORY Monocytes % 8.1 % [facility] Monocyte Abs 0.7 0.3 - 0.9 x10(3)/[facility] [facility] Eosinophils % 3.4 % [facility] Eosinophils Abs 0.3 0.0 - 0.4 x10(3)/[facility] LABORATORY Basophils % 0.4 % [facility] LABORATORY Basophils Abs 0.0 0.0 - 0.1 x10(3)/[facility] LABORATORY Immature Gran % 0.20 % [facility] Comment: Immature granulocytes(IG's)percentage and absolute count will include metamyelocytes, myelocytes, and promyelocytes. Blood smears from CBCs yielding IG's will be scanned manually for concordance. If this scan disagrees with the automated IG or if promyelocytes are noted, a manual differential will be performed. Shonda Gran Abs 0.02 0.00 - 0.04 x10(3)/[facility] LABORATORY Blood 07/04/2023 3:47 AM EDT 07/04/2023 4:15 AM EDT Narrative Resulting Agency Comment Spec In Lab Terrence Keating MD HEMATOLOGY ORDERABLE S [facility] [place] [address] * (ABNORMAL) Hemogram (07/04/2023 3:47 AM EDT) WBC 8.2 4.0 - 9.5 x10(3)/[facility] LABORATORY RBC 4.26 4.00 - 5.21 x10(6)/[facility] LABORATORY Hemoglobin 13.5 11.7 - 15.5 g/dL [facility] Hematocrit 40.0 35.7 - 45.8 % [facility] MCV 93.9 82.6 - 94.4 [facility] LABORATORY MCH 31.7 27.1 - 32.0 pg [facility] MCHC 33.8 31.7 - 35.0 g/dL [facility] Platelets 219 145 - 357 x10(3)/[facility] LABORATORY RDWSD 47.0(H) 37.0 - 46.0 [facility] LABORATORY RDWCV 13.7 11.5 - 14.1 % [facility] MPV 11.0 7.6 - 12.9 [facility] LABORATORY nRBC % Auto 0.0 % [facility] LABORATORY nRBC Abs Auto 0.000 0.000 - 0.000 x10(3)/[facility] LABORATORY Blood 07/04/2023 3:47 AM EDT 07/04/2023 4:15 AM EDT Narrative Resulting Agency Comment Spec In Lab Terrence Keating MD HEMATOLOGY ORDERABLE S Performing Organization Address [facility]/ZIP Co de Phone Number [facility] [place] [address] * Heparin (unfractionated) Level (07/04/2023 3:47 AM EDT) Heparin UFH Level 0.44 IU/mL [facility] Comment: Heparin (anti-Xa) levels [...] MD HEMATOLOGY ORDERABLE S Performing Organization Address [facility]/ZIP Co de Phone Number [facility] [place] [address] * (ABNORMAL) Basic Metabolic Panel (non-fasting) (07/04/2023 3:47 AM EDT) Glucose Lvl 104 65 - 199 mg/dL [facility] Comment:Diabetes: >=200 mg/d L plus symptoms BUN 16 8 - 18 mg/dL [facility] Creatinine 1.28(H) 0.70 - 1.20 mg/dL [facility] [...] questions. Chloride 102 98 - 107 mmol/L [facility] CO2 21(L) 22 - 31 mmol/L [facility] Anion Gap 16(H) 5 - 15 mmol/L [facility] Calcium 9.5 8.5 - 10.5 mg/dL [facility] Estimated GFR 50(L) >=60 mL/min/1. 73 m?? [facility] [...] Lab Eufemia Copeland MD CHEMISTRY ORDERABL ES [facility] [place] [address] * (ABNORMAL) Phosphorus (07/04/2023 3:47 AM EDT) Phosphorus 4.9(H) 2.5 - 4.5 mg/dL [facility] Blood 07/04/2023 3:47 AM EDT 07/04/2023 4:15 AM EDT Narrative Resulting Agency Comment Spec In Lab Eufemia Copeland MD CHEMISTRY ORDERABL ES Performing Organization Address City/[facility]/ZIP Co de Phone Number [facility] [place] [address] * Magnesium (07/04/2023 3:47 AM EDT) Magnesium 1.05 0.69 - 1.07 mmol/L [facility] Blood 07/04/2023 3:47 AM EDT 07/04/2023 4:15 AM EDT Narrative Resulting Agency Comment Spec In Lab Eufemia Copeland MD CHEMISTRY ORDERABL ES Performing Organization Address [facility] Co de Phone Number [facility] [place] [address] * EKG 12 Lead (07/03/2023 9:36 PM EDT) Ventricular rate 61 BPM MUSE SYSTEM Atrial Rate 61 BPM MUSE SYSTEM P-R Interval 188 ms MUSE SYSTEM QRS Duration 88 ms MUSE SYSTEM Q-T Interval 512 ms MUSE SYSTEM QTC Calculated (Bezet) 515 ms MUSE SYSTEM Calculated P [place] 56 degrees MUSE SYSTEM Calculated R [place] 69 degrees MUSE SYSTEM Calculated T [place] 29 degrees MUSE SYSTEM INTERPRETATION Normal sinus [...] Beck MD ECG ORDERABLES Performing Organization Address [facility] Co de Phone Number MUSE SYSTEM * Magnesium (07/03/2023 6:00 PM EDT) Magnesium 0.89 0.69 - 1.07 mmol/L [facility] Blood 07/03/2023 6:00 PM EDT 07/03/2023 6:07 PM EDT Narrative Resulting Agency Comment Spec In Lab Lino Calles MD CHEMISTRY ORDERABLES [facility] [place] [address] * (ABNORMAL) Basic Metabolic Panel (non-fasting) (07/03/2023 6:00 PM EDT) Glucose Lvl 116 65 - 199 mg/dL [facility] Comment:Diabetes: >=200 mg/d L plus symptoms BUN 16 8 - 18 mg/dL [facility] Creatinine 1.37(H) 0.70 - 1.20 mg/dL [facility] Sodium 137 135 - 145 mmol/L [facility] Potassium 4.1 3.5 - 5.0 mmol/L [facility] Comment: Please note: ??Patients with WBC >100,000 may have falsely elevated Potassium levels. ??For accurate Potassium quantification in these patients send serum separator tube (gold top) for subsequent determinations. ??Contact the Clinical Chemistry Laboratory if there are any questions. Chloride 102 98 - 107 mmol/L [facility] CO2 21(L) 22 - 31 mmol/L [facility] Anion Gap 14 5 - 15 mmol/L [facility] Calcium 9.5 8.5 - 10.5 mg/dL [facility] Estimated GFR 46(L) >=60 mL/min/1. 73 m?? [facility] [...] In Lab Lino Calles MD [place] [address] * XR Chest One View (07/03/2023 3:18 PM EDT) WORKSTATION ID [id number] RAD Anatomical Region Laterality Modality Chest N/A Digital Radiogra phy Impressions 07/03/2023 3:27 PM EDT No pulmonary edema or pleural effusion Thank you for letting us participate in the care of this patient. ??If you are a health care provider and have any questions regarding this report, please contact the number below. ??For patients who have questions please contact the health acute care physical therapist that requested 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 ? Narrative [...] have questions please contactthe health acute care physical therapist that requested 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 Lino Calles MD IMG DX ORDERABLES * Arterial Duplex Leg, Unil (07/03/2023 9:34 AM EDT) VB Text Report Department: Vascular Surgery Lab Patient: [id number] (LOIDA ROQUE) CPT: 46998 Referring Physician: LINO CALLES ?? Phone: Indications: [...] 3:07 AM EDT) Neutrophils % 67.2 % [facility] Neutr Abs (ANC) 5.51 1.70 - 6.10 x10(3)/[facility] LABORATORY Lymphocytes % 20.7 % [facility] Lymphocytes Abs 1.7 0.9 - 3.2 x10(3)/[facility] LABORATORY Monocytes % 7.7 % [facility] LABORAT[facility] Monocyte Abs 0.6 0.3 - 0.9 x10(3)/[facility] LABORATORY Eosinophils % 3.7 % [facility] Eosinophils Abs 0.3 0.0 - 0.4 x10(3)/[facility] LABORATORY Basophils % 0.5 % [facility] LABORATORY Basophils Abs 0.0 0.0 - 0.1 x10(3)/[facility] LABORATORY Immature Gran % 0.20 % [facility] Comment: Immature granulocytes(IG's)percentage and absolute count will include metamyelocytes, myelocytes, and promyelocytes. Blood smears from CBCs yielding IG's will be scanned manually for concordance. If this scan disagrees with the automated IG or if promyelocytes are noted, a manual differential will be performed. Shonda Gran Abs 0.02 0.00 - 0.04 x10(3)/[facility] LABORATORY Blood 07/03/2023 3:07 AM EDT 07/03/2023 3:15 AM EDT Narrative Resulting Agency Comment Spec In Lab Terrence Keating MD HEMATOLOGY ORDERABLE S [facility] [place] [address] * (ABNORMAL) Hemogram (07/03/2023 3:07 AM EDT) WBC 8.2 4.0 - 9.5 x10(3)/[facility] LABORATORY RBC 3.97(L) 4.00 - 5.21 x10(6)/[facility] LABORATORY Hemoglobin 12.5 11.7 - 15.5 g/dL [facility] Hematocrit 38.5 35.7 - 45.8 % [facility] MCV 97.0(H) 82.6 - 94.4 [facility] LABORATORY MCH 31.5 27.1 - 32.0 pg [facility] MCHC 32.5 31.7 - 35.0 g/dL [facility] Platelets 203 145 - 357 x10(3)/[facility] LABORATORY RDWSD 49.6(H) 37.0 - 46.0 [facility] LABORATORY RDWCV 13.7 11.5 - 14.1 % [facility] MPV 10.8 7.6 - 12.9 [facility] LABORATORY nRBC % Auto 0.0 % [facility] LABORATORY nRBC Abs Auto 0.000 0.000 - 0.000 x10(3)/[facility] LABORATORY Blood 07/03/2023 3:07 AM EDT 07/03/2023 3:15 AM EDT Narrative Resulting Agency Comment Spec In Lab Terrence Keating MD HEMATOLOGY ORDERABLE S [facility] [place] [address] * Heparin (unfractionated) Level (07/03/2023 3:07 AM EDT) Pathologist [facility] Heparin UFH Level 0.49 IU/mL [facility] Comment: Heparin (anti-Xa) levels [...] Lab Ailyn Irvin MD HEMATOLOGY ORDERABLE S [facility] [place] [address] * (ABNORMAL) Basic Metabolic Panel (non-fasting) (07/03/2023 3:07 AM EDT) [facility] Glucose Lvl 104 65 - 199 mg/dL [facility] Comment:Diabetes: >=200 mg/d L plus symptoms BUN 16 8 - 18 mg/dL [facility] Creatinine 1.20 0.70 - 1.20 mg/dL [facility] [...] questions. Chloride 107 98 - 107 mmol/L [facility] CO2 20(L) 22 - 31 mmol/L [facility] Anion Gap 11 5 - 15 mmol/L [facility] Calcium 8.8 8.5 - 10.5 mg/dL [facility] Estimated GFR 54(L) >=60 mL/min/1. 73 m?? [facility] [...] MD CHEMISTRY ORDERABL ES Performing Organization Address City/[facility]/ZIP Co de Phone Number [facility] [place] [address] * Phosphorus (07/03/2023 3:07 AM EDT) Phosphorus 3.6 2.5 - 4.5 mg/dL [facility] Blood 07/03/2023 3:07 AM EDT 07/03/2023 3:15 AM EDT Narrative Resulting Agency Comment Spec In Lab Eufemia Copeland MD CHEMISTRY ORDERABL ES Performing Organization Address City/[facility]/ZIP Co de Phone Number [facility] [place] [address] * Magnesium (07/03/2023 3:07 AM EDT) Magnesium 0.93 0.69 - 1.07 mmol/L [facility] Blood 07/03/2023 3:07 AM EDT 07/03/2023 3:15 AM EDT Narrative Resulting Agency Comment Spec In Lab Eufemia Copeland MD CHEMISTRY ORDERABL ES Performing Organization Address [facility] Co de Phone Number [facility] [place] [address] * Heparin (unfractionated) Level (07/02/2023 8:58 PM EDT) Heparin UFH Level 0.60 IU/mL [facility] Comment: Heparin (anti-Xa) levels [...] MD HEMATOLOGY ORDERABLE S Performing Organization Address [facility]/ZIP Co de Phone Number [facility] [place] [address] * VS Arteriogram Mesenteric Vascular Surgery (07/02/2023 [...] anesthetic: 10 cc 1% lidocaine Heparin: Yes [id number] ?? Units Protamine: No ??mg Antibiotics: Ancef [...] We exchanged the sheath for a 7 Czech claims collector steerable sheath over a stiff wire. ??A Glidewire and Kumpe catheter were used to selectively cannulate the superior mesenteric artery. ??Direct angiography of the superior mesenteric artery was performed, confirming the results of the nonselective aortography performed. ??The lesion was predilated with a 4 mm x 40 mm [place] balloon, and then a 6 mm X [...] 3:58 AM EDT) Neutrophils % 61.3 % [facility] Neutr Abs (ANC) 4.67 1.70 - 6.10 x10(3)/[facility] LABORATORY Lymphocytes % 27.6 % [facility] Lymphocytes Abs 2.1 0.9 - 3.2 x10(3)/[facility] LABORATORY Monocytes % 6.4 % [facility]ORAT[facility] Monocyte Abs 0.5 0.3 - 0.9 x10(3)/[facility] LABORATORY Eosinophils % 3.9 % [facility] Eosinophils Abs 0.3 0.0 - 0.4 x10(3)/[facility] LABORATORY Basophils % 0.5 % [facility] Basophils Abs 0.0 0.0 - 0.1 x10(3)/[facility] LABORATORY Immature Gran % 0.30 % [facility] Comment: Immature granulocytes(IG's)percentage and absolute count will include metamyelocytes, myelocytes, and promyelocytes. Blood smears from CBCs yielding IG's will be scanned manually for concordance. If this scan disagrees with the automated IG or if promyelocytes are noted, a manual differential will be performed. Shonda Gran Abs 0.02 0.00 - 0.04 x10(3)/[facility] LABORATORY Blood 07/02/2023 3:58 AM EDT 07/02/2023 4:14 AM EDT Narrative Resulting Agency Comment Spec In Lab Terrence Keating MD HEMATOLOGY ORDERABLE S [facility] [place] [address] * (ABNORMAL) Hemogram (07/02/2023 3:58 AM EDT) Pathologist [facility] WBC 7.6 4.0 - 9.5 x10(3)/[facility] LABORATORY RBC 4.12 4.00 - 5.21 x10(6)/[facility] LABORATORY Hemoglobin 12.9 11.7 - 15.5 g/dL [facility] Hematocrit 39.5 35.7 - 45.8 % [facility] MCV 95.9(H) 82.6 - 94.4 [facility] LABORATORY MCH 31.3 27.1 - 32.0 pg [facility] MCHC 32.7 31.7 - 35.0 g/dL [facility] Platelets 200 145 - 357 x10(3)/[facility] LABORATORY RDWSD 47.4(H) 37.0 - 46.0 [facility] LABORATORY RDWCV 13.3 11.5 - 14.1 % [facility] MPV 10.8 7.6 - 12.9 [facility] LABORATORY nRBC % Auto 0.0 % [facility] nRBC Abs Auto 0.000 0.000 - 0.000 x10(3)/[facility] LABORATORY Blood 07/02/2023 3:58 AM EDT 07/02/2023 4:14 AM EDT Narrative Resulting Agency Comment Spec In Lab Terrence Keating MD HEMATOLOGY ORDERABLE S [facility] [place] [address] * Heparin (unfractionated) Level (07/02/2023 3:58 AM EDT) Pathologist [facility] Heparin UFH Level 0.57 IU/mL [facility] Comment: Heparin (anti-Xa) levels [...] Lab Ailyn Irvin MD HEMATOLOGY ORDERABLE S [facility] [place] [address] * (ABNORMAL) Basic Metabolic Panel (non-fasting) (07/02/2023 3:58 AM EDT) [facility] Glucose Lvl 96 65 - 199 mg/dL [facility] Comment:Diabetes: >=200 mg/d L plus symptoms BUN 15 8 - 18 mg/dL [facility] Creatinine 1.21(H) 0.70 - 1.20 mg/dL [facility] Sodium 133(L) 135 - 145 mmol/L [facility] Potassium 4.1 3.5 - 5.0 mmol/L [facility] Comment: Please note: ??Patients with WBC >100,000 may have falsely elevated Potassium levels. ??For accurate Potassium quantification in these patients send serum separator tube (gold top) for subsequent determinations. ??Contact the Clinical Chemistry Laboratory if there are any questions. Chloride 104 98 - 107 mmol/L [facility] CO2 21(L) 22 - 31 mmol/L [facility] Anion Gap 8 5 - 15 mmol/L [facility] Calcium 8.8 8.5 - 10.5 mg/dL [facility] Estimated GFR 53(L) >=60 mL/min/1. 73 m?? [facility] [...] MD CHEMISTRY ORDERABL ES Performing Organization Address City/[facility]/ZIP Co de Phone Number [facility] [place] [address] * Phosphorus (07/02/2023 3:58 AM EDT) Phosphorus 3.8 2.5 - 4.5 mg/dL [facility] Blood 07/02/2023 3:58 AM EDT 07/02/2023 4:14 AM EDT Narrative Resulting Agency Comment Spec In Lab Eufemia Copeland MD CHEMISTRY ORDERABL ES [facility] [place] [address] * Magnesium (07/02/2023 3:58 AM EDT) Magnesium 0.95 0.69 - 1.07 mmol/L [facility] Blood 07/02/2023 3:58 AM EDT 07/02/2023 4:14 AM EDT Narrative Resulting Agency Comment Spec In Lab Eufemia Copeland MD CHEMISTRY ORDERABL ES Performing Organization Address City/[facility]/ZIP Co de Phone Number [facility] [place] [address] * EKG 12 Lead (07/01/2023 12:08 PM EDT) Ventricular rate 48 BPM MUSE SYSTEM Atrial Rate 48 BPM MUSE SYSTEM P-R Interval 192 ms MUSE SYSTEM QRS Duration 92 ms MUSE SYSTEM Q-T Interval 474 ms MUSE SYSTEM QTC Calculated (Bezet) 423 ms MUSE SYSTEM Calculated P [place] 32 degrees MUSE SYSTEM Calculated R [place] 45 degrees MUSE SYSTEM Calculated T [place] 0 degrees MUSE SYSTEM INTERPRETATION Sinus bradycardia [...] Keating MD ECG ORDERABLES Performing Organization Address [facility]/ZIP Co de Phone Number MUSE SYSTEM * Differential, Automated (07/01/2023 2:56 AM EDT) Neutrophils % 50.5 % [facility] Neutr Abs (ANC) 3.47 1.70 - 6.10 x10(3)/[facility] LABORATORY Lymphocytes % 36.5 % [facility] Lymphocytes Abs 2.5 0.9 - 3.2 x10(3)/[facility] LABORATORY Monocytes % 7.7 % [facility] Monocyte Abs 0.5 0.3 - 0.9 x10(3)/[facility] LABORATORY Eosinophils % 4.5 % [facility] Eosinophils Abs 0.3 0.0 - 0.4 x10(3)/[facility] LABORATORY Basophils % 0.7 % [facility] Basophils Abs 0.0 0.0 - 0.1 x10(3)/[facility] LABORATORY Immature Gran % 0.10 % [facility] Comment: Immature granulocytes(IG's)percentage and absolute count will include metamyelocytes, myelocytes, and promyelocytes. Blood smears from CBCs yielding IG's will be scanned manually for concordance. If this scan disagrees with the automated IG or if promyelocytes are noted, a manual differential will be performed. Shonda Gran Abs 0.01 0.00 - 0.04 x10(3)/[facility] LABORATORY Blood 07/01/2023 2:56 AM EDT 07/01/2023 3:22 AM EDT Narrative Resulting Agency Comment Spec In Lab Terrence Keating MD HEMATOLOGY ORDERABLE S [facility] [place] [address] * (ABNORMAL) Hemogram (07/01/2023 2:56 AM EDT) WBC 6.9 4.0 - 9.5 x10(3)/[facility] LABORATORY RBC 4.04 4.00 - 5.21 x10(6)/[facility] LABORATORY Hemoglobin 12.8 11.7 - 15.5 g/dL [facility] Hematocrit 39.0 35.7 - 45.8 % [facility] MCV 96.5(H) 82.6 - 94.4 fL [facility] MCH 31.7 27.1 - 32.0 pg [facility] MCHC 32.8 31.7 - 35.0 g/dL [facility] Platelets 224 145 - 357 x10(3)/[facility] LABORATORY RDWSD 47.8(H) 37.0 - 46.0 fL [facility] RDWCV 13.3 11.5 - 14.1 % [facility] MPV 11.1 7.6 - 12.9 fL [facility] nRBC % Auto 0.0 % [facility] nRBC Abs Auto 0.000 0.000 - 0.000 x10(3)/mcL [facility] Blood 07/01/2023 2:56 AM EDT 07/01/2023 3:22 AM EDT Narrative Resulting Agency Comment Spec In Lab Terrence Keating MD HEMATOLOGY ORDERABLE S Performing Organization Address [facility] Co de Phone Number [facility] [place] [address] * Heparin (unfractionated) Level (07/01/2023 2:56 AM EDT) Heparin UFH Level 0.56 IU/mL [facility] Comment: Heparin (anti-Xa) levels [...] MD HEMATOLOGY ORDERABLE S Performing Organization Address City/[facility]/ZIP Co de Phone Number [facility] [place] [address] * (ABNORMAL) Basic Metabolic Panel (non-fasting) (07/01/2023 2:56 AM EDT) Glucose Lvl 95 65 - 199 mg/dL [facility] Comment:Diabetes: >=200 mg/d L plus symptoms BUN 16 8 - 18 mg/dL [facility] Creatinine 1.21(H) 0.70 - 1.20 mg/dL [facility] Sodium 137 135 - 145 mmol/L [facility] Potassium 4.1 3.5 - 5.0 mmol/L [facility] [...] mmol/L [facility] Anion Gap 10 5 - 15 mmol/L [facility] Calcium 9.0 8.5 - 10.5 mg/dL [facility] Estimated GFR 53(L) >=60 mL/min/1. 73 m?? [facility] [...] Lab Eufemia Copeland MD CHEMISTRY ORDERABL ES [facility] [place] [address] * Phosphorus (07/01/2023 2:56 AM EDT) Phosphorus 4.1 2.5 - 4.5 mg/dL [facility] Blood 07/01/2023 2:56 AM EDT 07/01/2023 3:22 AM EDT Narrative Resulting Agency Comment Spec In Lab Eufemia Copeland MD CHEMISTRY ORDERABL ES Performing Organization Address [facility] Co de Phone Number [facility] [place] [address] * Magnesium (07/01/2023 2:56 AM EDT) Magnesium 0.95 0.69 - 1.07 mmol/L [facility] Blood 07/01/2023 2:56 AM EDT 07/01/2023 3:22 AM EDT Narrative Resulting Agency Comment Spec In Lab Eufemia Copeland MD CHEMISTRY ORDERABL ES Performing Organization Address [facility] de Phone Number [facility] [place] [address] * Heparin (unfractionated) Level (06/30/2023 9:24 AM EDT) Heparin UFH Level 0.62 IU/mL [facility] Comment: Heparin (anti-Xa) levels [...] Lab Ailyn Irvin MD HEMATOLOGY ORDERABLE S [facility] [place] [address] * Differential, Automated (06/30/2023 3:14 AM EDT) Neutrophils % 49.5 % [facility] Neutr Abs (ANC) 3.96 1.70 - 6.10 x10(3)/[facility] LABORATORY Lymphocytes % 36.6 % [facility] Lymphocytes Abs 2.9 0.9 - 3.2 x10(3)/[facility] LABORATORY Monocytes % 8.6 % [facility] Monocyte Abs 0.7 0.3 - 0.9 x10(3)/[facility] LABORATORY Eosinophils % 4.1 % [facility] Eosinophils Abs 0.3 0.0 - 0.4 x10(3)/[facility] LABORATORY Basophils % 0.8 % [facility] Basophils Abs 0.1 0.0 - 0.1 x10(3)/[facility] LABORATORY Immature Gran % 0.40 % [facility] Comment: Immature granulocytes(IG's)percentage and absolute count will include metamyelocytes, myelocytes, and promyelocytes. Blood smears from CBCs yielding IG's will be scanned manually for concordance. If this scan disagrees with the automated IG or if promyelocytes are noted, a manual differential will be performed. Shonda Gran Abs 0.03 0.00 - 0.04 x10(3)/[facility] LABORATORY Blood 06/30/2023 3:14 AM EDT 06/30/2023 3:23 AM EDT Narrative Resulting Agency Comment Spec In Lab Terrence Keating MD HEMATOLOGY ORDERABLE S [facility] [place] [address] * Hemogram (06/30/2023 3:14 AM EDT) WBC 8.0 4.0 - 9.5 x10(3)/[facility] LABORATORY RBC 4.22 4.00 - 5.21 x10(6)/[facility] LABORATORY Hemoglobin 13.1 11.7 - 15.5 g/dL [facility] Hematocrit 39.5 35.7 - 45.8 % [facility] MCV 93.6 82.6 - 94.4 fL [facility] MCH 31.0 27.1 - 32.0 pg [facility] MCHC 33.2 31.7 - 35.0 g/dL [facility] Platelets 235 145 - 357 x10(3)/[facility] [facility] LAB[facility]ATORY RDWSD 45.3 37.0 - 46.0 [facility] LABORATORY RDWCV 13.3 11.5 - 14.1 % [facility] MPV 11.0 7.6 - 12.9 [facility] LABORATORY nRBC % Auto 0.0 % [facility] LABORATORY nRBC Abs Auto 0.000 0.000 - 0.000 x10(3)/[facility] LABORATORY Blood 06/30/2023 3:14 AM EDT 06/30/2023 3:23 AM EDT Narrative Resulting Agency Comment Spec In Lab Terrence Keating MD HEMATOLOGY ORDERABLE S [facility] [place] [address] * Heparin (unfractionated) Level (06/30/2023 3:14 AM EDT) Pathologist [facility] Heparin UFH Level 0.70 IU/mL [facility] Comment: Heparin (anti-Xa) levels [...] Lab Terrence Keating MD HEMATOLOGY ORDERABLE S [facility] [place] [address] * (ABNORMAL) Basic Metabolic Panel (non-fasting) (06/30/2023 3:14 AM EDT) Glucose Lvl 103 65 - 199 mg/dL [facility] Comment:Diabetes: >=200 mg/d L plus symptoms BUN 18 8 - 18 mg/dL [facility] Creatinine 1.22(H) 0.70 - 1.20 mg/dL [facility] Sodium 137 135 - 145 mmol/L [facility] Potassium 3.8 3.5 - 5.0 mmol/L [facility] Comment: Please note: ??Patients with WBC >100,000 may have falsely elevated Potassium levels. ??For accurate Potassium quantification in these patients send serum separator tube (gold top) for subsequent determinations. ??Contact the Clinical Chemistry Laboratory if there are any questions. Chloride 104 98 - 107 mmol/L [facility] CO2 23 22 - 31 mmol/L [facility] Anion Gap 10 5 - 15 mmol/L [facility] Calcium 9.1 8.5 - 10.5 mg/dL [facility] Estimated GFR 53(L) >=60 mL/min/1. 73 m?? [facility] [...] CHEMISTRY ORDERABL ES Performing Organization Address [facility] Co de Phone Number [facility] [place] [address] * Phosphorus (06/30/2023 3:14 AM EDT) Phosphorus 4.4 2.5 - 4.5 mg/dL [facility] Blood 06/30/2023 3:14 AM EDT 06/30/2023 3:23 AM EDT Narrative Resulting Agency Comment Spec In Lab Eufemia Copeland MD CHEMISTRY ORDERABL ES Performing Organization Address City/[facility]/ZIP Co de Phone Number [facility] [place] [address] * Magnesium (06/30/2023 3:14 AM EDT) Magnesium 0.94 0.69 - 1.07 mmol/L [facility] Blood 06/30/2023 3:14 AM EDT 06/30/2023 3:23 AM EDT Narrative Resulting Agency Comment Spec In Lab Eufemia Copeland MD CHEMISTRY ORDERABL ES Performing Organization Address [facility] Co de Phone Number [facility] [place] [address] * Heparin (unfractionated) Level (06/29/2023 8:47 PM EDT) [facility] Heparin UFH Level 0.75 IU/mL [facility] Comment: Heparin (anti-Xa) levels [...] MD HEMATOLOGY ORDERABLE S Performing Organization Address [facility] Co de Phone Number [facility] [place] [address] * EKG 12 Lead (06/29/2023 12:55 PM EDT) [facility] Ventricular rate 53 BPM MUSE SYSTEM Atrial Rate 53 BPM MUSE SYSTEM P-R Interval 196 ms MUSE SYSTEM QRS Duration 90 ms MUSE SYSTEM Q-T Interval 564 ms MUSE SYSTEM QTC Calculated (Bezet) 529 ms MUSE SYSTEM Calculated P [place] 30 degrees MUSE SYSTEM Calculated R [place] 53 degrees MUSE SYSTEM Calculated T [place] 5 degrees MUSE SYSTEM INTERPRETATION Sinus bradycardia Marked ST abnormality, possible inferior subendocardial injury Prolonged QT Abnormal ECG When compared with ECG of 26-JUN-2023 06:04, Nonspecific T wave abnormality no longer evident in Anterolateral leads QT has lengthened Confirmed by MD Angelo Danette ([id number]) on 06/29/2023 8:34:43 PM MUSE SYSTEM 06/29/2023 12:5 5 PM EDT 06/29/2023 8:34 PM EDT Terrence Keating MD ECG ORDERABLES Performing Organization Address City/[facility]/ZIP Co de Phone Number MUSE SYSTEM * (ABNORMAL) Heparin (unfractionated) Level (06/29/2023 11:34 AM EDT) Heparin UFH Level 1.41(Crit ical) IU/mL [facility] Comment: Critical Result [...] Lab Ailyn Irvin MD HEMATOLOGY ORDERABLE S [facility] [place] [address] * Differential, Automated (06/29/2023 2:39 AM EDT) Neutrophils % 53.8 % [facility] Neutr Abs (ANC) 4.46 1.70 - 6.10 x10(3)/mcL [facility] Lymphocytes % 33.5 % [facility] Lymphocytes Abs 2.8 0.9 - 3.2 x10(3)/[facility] LABORATORY Monocytes % 8.3 % [facility]OR[facility] Monocyte Abs 0.7 0.3 - 0.9 x10(3)/[facility] LABORATORY Eosinophils % 3.5 % [facility] Eosinophils Abs 0.3 0.0 - 0.4 x10(3)/[facility] LABORATORY Basophils % 0.5 % [facility] Basophils Abs 0.0 0.0 - 0.1 x10(3)/[facility] LABORATORY Immature Gran % 0.40 % [facility] Comment: Immature granulocytes(IG's)percentage and absolute count will include metamyelocytes, myelocytes, and promyelocytes. Blood smears from CBCs yielding IG's will be scanned manually for concordance. If this scan disagrees with the automated IG or if promyelocytes are noted, a manual differential will be performed. Shonda Gran Abs 0.03 0.00 - 0.04 x10(3)/[facility] LABORATORY Blood 06/29/2023 2:39 AM EDT 06/29/2023 3:33 AM EDT Narrative Resulting Agency Comment Spec In Lab Terrence Keating MD HEMATOLOGY ORDERABLE S [facility] [place] [address] * Hemogram (06/29/2023 2:39 AM EDT) WBC 8.3 4.0 - 9.5 x10(3)/[facility] LABORATORY RBC 4.19 4.00 - 5.21 x10(6)/[facility] LABORATORY Hemoglobin 13.2 11.7 - 15.5 g/dL [facility] Hematocrit 38.9 35.7 - 45.8 % [facility] MCV 92.8 82.6 - 94.4 fL [facility] MCH 31.5 27.1 - 32.0 pg [facility] MCHC 33.9 31.7 - 35.0 g/dL [facility] Platelets 237 145 - 357 x10(3)/[facility] LABORATORY RDWSD 45.3 37.0 - 46.0 fL [facility] RDWCV 13.3 11.5 - 14.1 % [facility] MPV 11.4 7.6 - 12.9 fL [facility] nRBC % Auto 0.0 % [facility] nRBC Abs Auto 0.000 0.000 - 0.000 x10(3)/[facility] LABORATORY Blood 06/29/2023 2:39 AM EDT 06/29/2023 3:33 AM EDT Narrative Resulting Agency Comment Spec In Lab Terrence Keating MD HEMATOLOGY ORDERABLE S Performing Organization Address City/State/[facility] Co de Phone Number [facility] [place] [address] * (ABNORMAL) Heparin (unfractionated) Level (06/29/2023 2:39 AM EDT) Heparin UFH Level 1.77(Crit ical) IU/mL [facility] Comment: Specimen drawn more [...] Lab Ailyn Irvin MD HEMATOLOGY ORDERABLE S [facility] [place] [address] * (ABNORMAL) Basic Metabolic Panel (non-fasting) (06/29/2023 2:39 AM EDT) Glucose Lvl 100 65 - 199 mg/dL [facility] Comment:Diabetes: >=200 mg/d L plus symptoms BUN 21(H) 8 - 18 mg/dL [facility] Creatinine 1.17 0.70 - 1.20 mg/dL [facility] Sodium 138 135 - 145 mmol/L [facility] Potassium 3.9 3.5 - 5.0 mmol/L [facility] [...] mmol/L [facility] Anion Gap 11 5 - 15 mmol/L [facility] Calcium 9.1 8.5 - 10.5 mg/dL [facility] Estimated GFR 55(L) >=60 mL/min/1. 73 m?? [facility] [...] CHEMISTRY ORDERABL ES Performing Organization Address [facility] Co de Phone Number [facility] [place] [address] * Phosphorus (06/29/2023 2:39 AM EDT) Phosphorus 4.0 2.5 - 4.5 mg/dL [facility] Blood 06/29/2023 2:39 AM EDT 06/29/2023 3:33 AM EDT Narrative Resulting Agency Comment Spec In Lab Eufemia Copeland MD CHEMISTRY ORDERABL ES Performing Organization Address [facility] Co de Phone Number [facility] [place] [address] * Magnesium (06/29/2023 2:39 AM EDT) Magnesium 0.92 0.69 - 1.07 mmol/L [facility] Blood 06/29/2023 2:39 AM EDT 06/29/2023 3:33 AM EDT Narrative Resulting Agency Comment Spec In Lab Eufemia Copeland MD CHEMISTRY ORDERABL ES Performing Organization Address [facility] Co de Phone Number [facility] [place] [address] * US Abdomen Limited (06/28/2023 12:22 PM EDT) WORKSTATION ID [id number] DH RAD Anatomical Region Laterality Modality Abdomen [...] PM Electronically signed by: Sigrid Owens MD, [facility] ([phone]), at 06/28/2023 2:02 PM Thank you for letting us participate in the care of this patient. If you are a health care provider and have any questions regarding this report, please contact the number above. For patients who have questions, please contact the health acute care physical therapist that requested 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 ?Sigrid Owens, Esther Software Quality Test Engineer Electronically Signed Final Report ?? 06/28/2023 02:08 pm Narrative 06/28/2023 2:08 PM EDT Abdominal ? (Signed Final 06/28/2023 02:08 pm) PATIENT INFO: ID #: ? [id number] ?: ??[birth year] (53 yrs)(F) Name: ? LOIDA ?Visit Date: 06/28/2023 12:20 pm ? ROHAN PERFORMED BY: Attending: ?Sigrid Owens MD Resident: ? Karo JOHN, Rafaela Performed By: ? Rick STANFORD, ??Deena Referred By: ?AILYN IRVIN Location: ? [place] SERVICE(S) PROVIDED: UABDLIM - Abdominal Limited Survey Single ? [id number] Organ or Quadrant - [id number] INDICATIONS: RUQ pain, R/o Gall bladder colic, [...] 06/28/2023 02:08 pm) PATIENT INFO: ID #: [id number] : [birth year] (53 yrs)(F) Name: LOIDA Visit Date: 06/28/2023 12:20 pm ROHAN PERFORMED BY: Attending: Sgirid Owens MD Resident: Rafaela Huddleston MD Performed By: Deena Cabrera RDMS Referred By: AILYN IRVIN Location: [place] SERVICE(S) PROVIDED: UABDLIM - Abdominal Limited Survey Single [id number] Organ or Quadrant - [id number] INDICATIONS: RUQ pain, R/o Gall bladder colic, [...] PM Electronically signed by: Sigrid Owens MD, [facility] ([phone]), at 06/28/2023 2:02 PM Thank you for letting us participate in the care of this patient. If you are a health care provider and have any questions regarding this report, please contact the number above. For patients who have questions, please contact the health acute care physical therapist that requested 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 Sigrid Owens, E Software Quality Test Engineer Electronically Signed Final Report 06/28/2023 02:08 pm Ailyn Irvin MD IMG US GEN ORDERABLE S * Duplex Study Visceral Arteries, Comp (06/28/2023 10:19 AM EDT) VB Text Report Department: Vascular Surgery Lab Patient: [id number] (LOIDA ROQUE) CPT: 32231 Referring Physician: HEIDY SULLIVAN ?? Indications: abdominal pain, ? patency/stenosi s Findings: Unilateral ? Waveform ? PSV cm/s ??EDV cm/s ??Patent ?? Dary Visceral Aorta ? 80 ?16 ? Celiac Artery, Proximal ??Swain-Biphasic ? 119 ?26 ? Celiac Artery, Mid ? Swain-Biphasic ? 115 ?21 ? Celiac Artery, Distal ? No Vis ?? Sup Mes Artery Proximal ??Biphasic ?427 ?91 ? Sup Mes Artery Middle ?Swain-Biphasic ? 100 ?17 ? Sup Mes Artery Distal ?Swain-Biphasic ?64 ?15 ? Hepatic Artery ?No Vis [...] 1:52 AM EDT) Neutrophils % 55.3 % [facility] Neutr Abs (ANC) 4.46 1.70 - 6.10 x10(3)/[facility] LABORATORY Lymphocytes % 30.6 % [facility] Lymphocytes Abs 2.5 0.9 - 3.2 x10(3)/[facility] LABORATORY Monocytes % 8.8 % [facility] Monocyte Abs 0.7 0.3 - 0.9 x10(3)/[facility] LABORATORY Eosinophils % 4.6 % [facility] Eosinophils Abs 0.4 0.0 - 0.4 x10(3)/[facility] LABORATORY Basophils % 0.5 % [facility] Basophils Abs 0.0 0.0 - 0.1 x10(3)/[facility] LABORATORY Immature Gran % 0.20 % [facility] Comment: Immature granulocytes(IG's)percentage and absolute count will include metamyelocytes, myelocytes, and promyelocytes. Blood smears from CBCs yielding IG's will be scanned manually for concordance. If this scan disagrees with the automated IG or if promyelocytes are noted, a manual differential will be performed. Shonda Gran Abs 0.02 0.00 - 0.04 x10(3)/[facility] LABORATORY Blood 06/28/2023 1:52 AM EDT 06/28/2023 2:05 AM EDT Narrative Resulting Agency Comment Spec In Lab Terrence Keating MD HEMATOLOGY ORDERABLE S [facility] [place] [address] * Hemogram (06/28/2023 1:52 AM EDT) WBC 8.1 4.0 - 9.5 x10(3)/[facility] LABORATORY RBC 4.30 4.00 - 5.21 x10(6)/[facility] LABORATORY Hemoglobin 13.4 11.7 - 15.5 g/dL [facility] Hematocrit 40.6 35.7 - 45.8 % [facility] MCV 94.4 82.6 - 94.4 [facility] LABORATORY MCH 31.2 27.1 - 32.0 pg [facility] MCHC 33.0 31.7 - 35.0 g/dL [facility] Platelets 238 145 - 357 x10(3)/[facility] LABORATORY RDWSD 45.7 37.0 - 46.0 [facility] LABORATORY RDWCV 13.2 11.5 - 14.1 % [facility] MPV 10.8 7.6 - 12.9 [facility] LABORATORY nRBC % Auto 0.0 % [facility] nRBC Abs Auto 0.000 0.000 - 0.000 x10(3)/[facility] LABORATORY Blood 06/28/2023 1:52 AM EDT 06/28/2023 2:05 AM EDT Narrative Resulting Agency Comment Spec In Lab Terrence Keating MD HEMATOLOGY ORDERABLE S [facility] [place] [address] * (ABNORMAL) Basic Metabolic Panel (non-fasting) (06/28/2023 1:52 AM EDT) Pathologist [facility] Glucose Lvl 101 65 - 199 mg/dL [facility] Comment:Diabetes: >=200 mg/d L plus symptoms BUN 24(H) 8 - 18 mg/dL [facility] Creatinine 1.21(H) 0.70 - 1.20 mg/dL [facility] Sodium 138 135 - 145 mmol/L [facility] Potassium 4.0 3.5 - 5.0 mmol/L [facility] Comment: Please note: ??Patients with WBC >100,000 may have falsely elevated Potassium levels. ??For accurate Potassium quantification in these patients send serum separator tube (gold top) for subsequent determinations. ??Contact the Clinical Chemistry Laboratory if there are any questions. Chloride 105 98 - 107 mmol/L [facility] CO2 21(L) 22 - 31 mmol/L [facility] Anion Gap 12 5 - 15 mmol/L [facility] Calcium 9.0 8.5 - 10.5 mg/dL [facility] Estimated GFR 53(L) >=60 mL/min/1. 73 m?? [facility] [...] Lab Eufemia Copeland MD CHEMISTRY ORDERABL ES [facility] [place] [address] * Phosphorus (06/28/2023 1:52 AM EDT) Phosphorus 4.5 2.5 - 4.5 mg/dL [facility] Blood 06/28/2023 1:52 AM EDT 06/28/2023 2:05 AM EDT Narrative Resulting Agency Comment Spec In Lab Eufemia Copeland MD CHEMISTRY ORDERABL ES Performing Organization Address [facility] Co de Phone Number [facility] [place] [address] * Magnesium (06/28/2023 1:52 AM EDT) Magnesium 0.93 0.69 - 1.07 mmol/L [facility] Blood 06/28/2023 1:52 AM EDT 06/28/2023 2:05 AM EDT Narrative Resulting Agency Comment Spec In Lab Eufemia Copeland MD CHEMISTRY ORDERABL ES Performing Organization Address [facility] de Phone Number [facility] [place] [address] * (ABNORMAL) Basic Metabolic Panel (non-fasting) (06/27/2023 8:06 PM EDT) Glucose Lvl 94 65 - 199 mg/dL [facility] Comment:Diabetes: >=200 mg/d L plus symptoms BUN 24(H) 8 - 18 mg/dL [facility] Creatinine 1.28(H) 0.70 - 1.20 mg/dL [facility] Sodium 141 135 - 145 mmol/L [facility] Potassium 4.3 3.5 - 5.0 mmol/L [facility] Comment: Please note: ??Patients with WBC >100,000 may have falsely elevated Potassium levels. ??For accurate Potassium quantification in these patients send serum separator tube (gold top) for subsequent determinations. ??Contact the Clinical Chemistry Laboratory if there are any questions. Chloride 106 98 - 107 mmol/L [facility] CO2 24 22 - 31 mmol/L [facility] Anion Gap 11 5 - 15 mmol/L [facility] Calcium 9.3 8.5 - 10.5 mg/dL [facility] Estimated GFR 50(L) >=60 mL/min/1. 73 m?? [facility] [...] Irvin MD CHEMISTRY ORDERABLES Performing Organization Address City/[facility]/ZIP Co de Phone Number [facility] [place] [address] * (ABNORMAL) Hepatic Function Panel (06/27/2023 4:34 AM EDT) Total Protein 6.4 6.1 - 8.0 g/dL [facility] Albumin 3.8 3.2 - 5.2 g/dL [facility] AST 21 0 - 30 unit/L [facility] ALT 22 0 - 30 unit/L [facility] Alk Phos 56 35 - 105 unit/L [facility] Total Bilirubin <0.2(L) 0.2 - 1.3 mg/dL [facility] Bili, Direct <0.1 0.0 - 0.3 mg/dL [facility] Blood Venous Draw / Unknown 06/27/2023 4:34 AM EDT 06/27/2023 4:53 AM EDT Narrative Resulting Agency Comment Spec In Lab Ailyn Irvin MD CHEMISTRY ORDERABLES [facility] [place] [address] * Differential, Automated (06/27/2023 4:34 AM EDT) Neutrophils % 52.7 % [facility] Neutr Abs (ANC) 4.01 1.70 - 6.10 x10(3)/[facility] LABORATORY Lymphocytes % 33.8 % [facility] Lymphocytes Abs 2.6 0.9 - 3.2 x10(3)/[facility] LABORATORY Monocytes % 8.8 % [facility] Monocyte Abs 0.7 0.3 - 0.9 x10(3)/[facility] LABORATORY Eosinophils % 3.8 % [facility] Eosinophils Abs 0.3 0.0 - 0.4 x10(3)/[facility] LABORATORY Basophils % 0.5 % [facility] Basophils Abs 0.0 0.0 - 0.1 x10(3)/[facility] LABORATORY Immature Gran % 0.40 % [facility] Comment: Immature granulocytes(IG's)percentage and absolute count will include metamyelocytes, myelocytes, and promyelocytes. Blood smears from CBCs yielding IG's will be scanned manually for concordance. If this scan disagrees with the automated IG or if promyelocytes are noted, a manual differential will be performed. Shonda Gran Abs 0.03 0.00 - 0.04 x10(3)/[facility] LABORATORY Blood 06/27/2023 4:34 AM EDT 06/27/2023 4:51 AM EDT Narrative Resulting Agency Comment Spec In Lab Terrence Keating MD HEMATOLOGY ORDERABLE S [facility] [place] [address] * Hemogram (06/27/2023 4:34 AM EDT) WBC 7.6 4.0 - 9.5 x10(3)/[facility] LABORATORY RBC 4.15 4.00 - 5.21 x10(6)/[facility] LABORATORY Hemoglobin 12.9 11.7 - 15.5 g/dL [facility] Hematocrit 39.0 35.7 - 45.8 % [facility] MCV 94.0 82.6 - 94.4 [facility] LABORATORY MCH 31.1 27.1 - 32.0 pg [facility] MCHC 33.1 31.7 - 35.0 g/dL [facility] Platelets 245 145 - 357 x10(3)/[facility] RDWSD 45.2 37.0 - 46.0 [facility] LABORATORY RDWCV 13.2 11.5 - 14.1 % [facility] MPV 11.2 7.6 - 12.9 [facility] LABORATORY nRBC % Auto 0.0 % [facility] nRBC Abs Auto 0.000 0.000 - 0.000 x10(3)/[facility] LABORATORY Blood 06/27/2023 4:34 AM EDT 06/27/2023 4:51 AM EDT Narrative Resulting Agency Comment Spec In Lab Terrence Keating MD HEMATOLOGY ORDERABLE S [facility] [place] [address] * (ABNORMAL) Basic Metabolic Panel (non-fasting) (06/27/2023 4:34 AM EDT) Glucose Lvl 99 65 - 199 mg/dL [facility] Comment:Diabetes: >=200 mg/d L plus symptoms BUN 26(H) 8 - 18 mg/dL [facility] Creatinine 1.22(H) 0.70 - 1.20 mg/dL [facility] Sodium 138 135 - 145 mmol/L [facility] Potassium 3.9 3.5 - 5.0 mmol/L [facility] [...] mmol/L [facility] Anion Gap 11 5 - 15 mmol/L [facility] Calcium 9.1 8.5 - 10.5 mg/dL [facility] Estimated GFR 53(L) >=60 mL/min/1. 73 m?? [facility] [...] Lab Eufemia Coepland MD CHEMISTRY ORDERABL ES [facility] [place] [address] * (ABNORMAL) Phosphorus (06/27/2023 4:34 AM EDT) Phosphorus 4.7(H) 2.5 - 4.5 mg/dL [facility] Blood 06/27/2023 4:34 AM EDT 06/27/2023 4:51 AM EDT Narrative Resulting Agency Comment Spec In Lab Eufemia Copeland MD CHEMISTRY ORDERABL ES Performing Organization Address City/[facility]/ZIP Co de Phone Number [facility] [place] [address] * Magnesium (06/27/2023 4:34 AM EDT) Pathologist [facility] Magnesium 0.90 0.69 - 1.07 mmol/L [facility] Blood 06/27/2023 4:34 AM EDT 06/27/2023 4:51 AM EDT Narrative Resulting Agency Comment Spec In Lab Eufemia Copeland MD CHEMISTRY ORDERABL ES Performing Organization Address [facility] Co de Phone Number [facility] [place] [address] * (ABNORMAL) Basic Metabolic Panel (non-fasting) (06/26/2023 4:58 PM EDT) [facility] Glucose Lvl 106 65 - 199 mg/dL [facility] Comment:Diabetes: >=200 mg/d L plus symptoms BUN 24(H) 8 - 18 mg/dL [facility] Creatinine 1.23(H) 0.70 - 1.20 mg/dL [facility] [...] questions. Chloride 104 98 - 107 mmol/L [facility] CO2 21(L) 22 - 31 mmol/L [facility] Anion Gap 13 5 - 15 mmol/L [facility] Calcium 9.1 8.5 - 10.5 mg/dL [facility] Estimated GFR 52(L) >=60 mL/min/1. 73 m?? [facility] [...] Irvin MD CHEMISTRY ORDERABLES Performing Organization Address City/[facility]/ZIP Co de Phone Number [facility] [place] [address] * Urinalysis Microscopic Exam (06/26/2023 11:09 AM EDT) RBC UA 0 0 - 4 /HPF [facility] WBC UA 3 0 - 5 /HPF [facility] Squam Epith UA 1 <=4 /HPF [facility] Hyaline Cast UA 1 0 - 2 /LPF [facility] Clean Catch Urine 06/26/2023 11:09 AM EDT 06/26/2023 5:45 PM EDT Narrative Resulting Agency Comment Spec In Lab Ailyn Irvin MD URINE ORDERABLES Performing Organization Address City/[facility]/ZIP Co de Phone Number [facility] [place] [address] * (ABNORMAL) Urinalysis with reflex Culture (06/26/2023 11:09 AM EDT) Glucose UA Negative Negative mg/dL [facility] Protein UA Negative Negative mg/dL [facility] Bilirubin UA Negative Negative mg/dL [facility] Comment: Clinical correlation required for positive Urine Bilirubin results as false positive may occur with some drugs and drug related products. If a false positive is suspected a serum total bilirubin should be considered if clinically indicated. Urobilinogen UA Normal Normal mg/dL [facility] pH UA 6.0 5.0 - 8.0 [facility] Blood UA Negative Negative mg/dL [facility] Ketones UA Negative Negative mg/dL [facility] Nitrite UA Negative Negative [facility] Leukocytes UA Trace(A) Negative [facility] Appearance UA Clear Clear [facility] Spec [place] UA 1.013 1.005 - 1.030 [facility] Color UA Yellow Yellow [facility] Culture Reflexed No [facility] Clean Catch Urine 06/26/2023 11:09 AM EDT 06/26/2023 5:45 PM EDT Narrative Resulting Agency Comment Spec In Lab Ailyn Irvin MD URINE ORDERABLES [facility] [place] [address] * EKG 12 Lead (06/26/2023 6:04 AM EDT) Ventricular rate 46 BPM MUSE SYSTEM Atrial Rate 46 BPM MUSE SYSTEM P-R Interval 204 ms MUSE SYSTEM QRS Duration 90 ms MUSE SYSTEM Q-T Interval 466 ms MUSE SYSTEM QTC Calculated (Bezet) 407 ms MUSE SYSTEM Calculated P [place] 38 degrees MUSE SYSTEM Calculated R [place] 48 degrees MUSE SYSTEM Calculated T [place] 13 degrees MUSE SYSTEM INTERPRETATION Sinus bradycardia Nonspecific ST and T wave abnormality Abnormal ECG When compared with ECG of 23-JUN-2023 09:54, No significant change was found Confirmed by MD Dalia, Willy Huerta ([id number]) on 06/29/2023 6:09:20 AM MUSE SYSTEM 06/26/2023 6:04 AM EDT 06/29/2023 6:09 AM EDT Eufemia Copeland MD ECG ORDERABLES MUSE SYSTEM * Differential, Automated (06/26/2023 4:06 AM EDT) Neutrophils % 55.3 % [facility] Neutr Abs (ANC) 4.63 1.70 - 6.10 x10(3)/[facility] Lymphocytes % 32.6 % [facility] Lymphocytes Abs 2.7 0.9 - 3.2 x10(3)/[facility] Monocytes % 8.2 % [facility] Monocyte Abs 0.7 0.3 - 0.9 x10(3)/[facility] Eosinophils % 3.2 % [facility] Eosinophils Abs 0.3 0.0 - 0.4 x10(3)/[facility] Basophils % 0.5 % [facility] Basophils Abs 0.0 0.0 - 0.1 x10(3)/[facility] Immature Gran % 0.20 % [facility] Comment: Immature granulocytes(IG's)percentage and absolute count will include metamyelocytes, myelocytes, and promyelocytes. Blood smears from CBCs yielding IG's will be scanned manually for concordance. If this scan disagrees with the automated IG or if promyelocytes are noted, a manual differential will be performed. Shonda Gran Abs 0.02 0.00 - 0.04 x10(3)/[facility] Blood 06/26/2023 4:06 AM EDT 06/26/2023 4:18 AM EDT Narrative Resulting Agency Comment Spec In Lab Terrence Keating MD HEMATOLOGY ORDERABLE S [facility] [place] [address] * (ABNORMAL) Hemogram (06/26/2023 4:06 AM EDT) WBC 8.4 4.0 - 9.5 x10(3)/[facility] RBC 4.52 4.00 - 5.21 x10(6)/[facility] Hemoglobin 14.0 11.7 - 15.5 g/dL [facility] Hematocrit 43.6 35.7 - 45.8 % [facility] MCV 96.5(H) 82.6 - 94.4 [facility] MCH 31.0 27.1 - 32.0 pg [facility] MCHC 32.1 31.7 - 35.0 g/dL [facility] Platelets 258 145 - 357 x10(3)/[facility] RDWSD 46.7(H) 37.0 - 46.0 [facility] RDWCV 13.2 11.5 - 14.1 % [facility] MPV 11.1 7.6 - 12.9 [facility] nRBC % Auto 0.0 % [facility] nRBC Abs Auto 0.000 0.000 - 0.000 x10(3)/[facility] Blood 06/26/2023 4:06 AM EDT 06/26/2023 4:18 AM EDT Narrative Resulting Agency Comment Spec In Lab Terrence Keating MD HEMATOLOGY ORDERABLE S [facility] [place] [address] * (ABNORMAL) Basic Metabolic Panel (non-fasting) (06/26/2023 4:06 AM EDT) [facility] Glucose Lvl 100 65 - 199 mg/dL [facility] Comment:Diabetes: >=200 mg/d L plus symptoms BUN 25(H) 8 - 18 mg/dL [facility] Creatinine 1.24(H) 0.70 - 1.20 mg/dL [facility] Sodium 135 135 - 145 mmol/L [facility] Potassium 4.2 3.5 - 5.0 mmol/L [facility] Comment: Please note: ??Patients with WBC >100,000 may have falsely elevated Potassium levels. ??For accurate Potassium quantification in these patients send serum separator tube (gold top) for subsequent determinations. ??Contact the Clinical Chemistry Laboratory if there are any questions. Chloride 104 98 - 107 mmol/L [facility] CO2 19(L) 22 - 31 mmol/L [facility] Anion Gap 12 5 - 15 mmol/L [facility] Calcium 9.6 8.5 - 10.5 mg/dL [facility] Estimated GFR 52(L) >=60 mL/min/1. 73 m?? [facility] [...] Lab Eufemia Copeland MD CHEMISTRY ORDERABL ES [facility] [place] [address] * Phosphorus (06/26/2023 4:06 AM EDT) Phosphorus 4.3 2.5 - 4.5 mg/dL [facility] Blood 06/26/2023 4:06 AM EDT 06/26/2023 4:18 AM EDT Narrative Resulting Agency Comment Spec In Lab Eufemia Copeland MD CHEMISTRY ORDERABL ES Performing Organization Address City/[facility]/ZIP Co de Phone Number [facility] [place] [address] * Magnesium (06/26/2023 4:06 AM EDT) Magnesium 0.96 0.69 - 1.07 mmol/L [facility] Blood 06/26/2023 4:06 AM EDT 06/26/2023 4:18 AM EDT Narrative Resulting Agency Comment Spec In Lab Eufemia Copeland MD CHEMISTRY ORDERABL ES Performing Organization Address [facility] Co de Phone Number [facility] [place] [address] * Differential, Automated (06/25/2023 1:50 AM EDT) [facility] Neutrophils % 56.2 % [facility] Neutr Abs (ANC) 4.06 1.70 - 6.10 x10(3)/[facility] Lymphocytes % 30.5 % [facility] Lymphocytes Abs 2.2 0.9 - 3.2 x10(3)/[facility] Monocytes % 8.7 % [facility] Monocyte Abs 0.6 0.3 - 0.9 x10(3)/[facility] Eosinophils % 3.9 % [facility] Eosinophils Abs 0.3 0.0 - 0.4 x10(3)/[facility] Basophils % 0.6 % [facility] Basophils Abs 0.0 0.0 - 0.1 x10(3)/[facility] Immature Gran % 0.10 % [facility] Comment: Immature granulocytes(IG's)percentage and absolute count will include metamyelocytes, myelocytes, and promyelocytes. Blood smears from CBCs yielding IG's will be scanned manually for concordance. If this scan disagrees with the automated IG or if promyelocytes are noted, a manual differential will be performed. Shonda Gran Abs 0.01 0.00 - 0.04 x10(3)/[facility] Blood 06/25/2023 1:50 AM EDT 06/25/2023 2:16 AM EDT Narrative Resulting Agency Comment Spec In Lab Terrence Keating MD HEMATOLOGY ORDERABLE S [facility] [place] [address] * Hemogram (06/25/2023 1:50 AM EDT) WBC 7.2 4.0 - 9.5 x10(3)/[facility] RBC 4.57 4.00 - 5.21 x10(6)/[facility] Hemoglobin 14.4 11.7 - 15.5 g/dL [facility] Hematocrit 42.9 35.7 - 45.8 % [facility] MCV 93.9 82.6 - 94.4 fL [facility] MCH 31.5 27.1 - 32.0 pg [facility] MCHC 33.6 31.7 - 35.0 g/dL [facility] Platelets 241 145 - 357 x10(3)/[facility] RDWSD 44.7 37.0 - 46.0 [facility] RDWCV 13.2 11.5 - 14.1 % [facility] MPV 11.5 7.6 - 12.9 fL [facility] nRBC % Auto 0.0 % [facility] nRBC Abs Auto 0.000 0.000 - 0.000 x10(3)/[facility] Blood 06/25/2023 1:50 AM EDT 06/25/2023 2:16 AM EDT Narrative Resulting Agency Comment Spec In Lab Terrence Keating MD HEMATOLOGY ORDERABLE S [facility] [place] [address] * (ABNORMAL) Basic Metabolic Panel (non-fasting) (06/25/2023 1:50 AM EDT) Glucose Lvl 99 65 - 199 mg/dL [facility] Comment:Diabetes: >=200 mg/d L plus symptoms BUN 20(H) 8 - 18 mg/dL [facility] Creatinine 1.59(H) 0.70 - 1.20 mg/dL [facility] Sodium 139 135 - 145 mmol/L [facility] Potassium 3.4(L) 3.5 - 5.0 mmol/L [facility] Comment: Please note: ??Patients with WBC >100,000 may have falsely elevated Potassium levels. ??For accurate Potassium quantification in these patients send serum separator tube (gold top) for subsequent determinations. ??Contact the Clinical Chemistry Laboratory if there are any questions. Chloride 102 98 - 107 mmol/L [facility] CO2 25 22 - 31 mmol/L [facility] Anion Gap 12 5 - 15 mmol/L [facility] Calcium 9.4 8.5 - 10.5 mg/dL [facility] Estimated GFR 38(L) >=60 mL/min/1. 73 m?? [facility] [...] CHEMISTRY ORDERABL ES Performing Organization Address [facility] Co de Phone Number [facility] [place] [address] * Phosphorus (06/25/2023 1:50 AM EDT) Phosphorus 4.4 2.5 - 4.5 mg/dL [facility] Blood 06/25/2023 1:50 AM EDT 06/25/2023 2:16 AM EDT Narrative Resulting Agency Comment Spec In Lab Eufemia Copeland MD CHEMISTRY ORDERABL ES Performing Organization Address [facility] de Phone Number [facility] [place] [address] * Magnesium (06/25/2023 1:50 AM EDT) Magnesium 0.99 0.69 - 1.07 mmol/L [facility] Blood 06/25/2023 1:50 AM EDT 06/25/2023 2:16 AM EDT Narrative Resulting Agency Comment Spec In Lab Eufemia Copeland MD CHEMISTRY ORDERABL ES Performing Organization Address [facility] de Phone Number [facility] [place] [address] * (ABNORMAL) pro-Brain Natriuretic Peptide (06/24/2023 3:38 AM EDT) ProBNP 1,239(H) <=124 pg/mL [facility] Blood Venous Draw / Unknown 06/24/2023 3:38 AM EDT 06/24/2023 3:49 AM EDT Narrative Resulting Agency Comment Spec In Lab Ailyn Irvin MD CHEMISTRY ORDERABLES Performing Organization Address City/[facility]/ZIP Co de Phone Number [facility] [place] [address] * Differential, Automated (06/24/2023 3:38 AM EDT) Pathologist [facility] Neutrophils % 51.6 % [facility] Neutr Abs (ANC) 3.54 1.70 - 6.10 x10(3)/[facility] Lymphocytes % 36.0 % [facility] Lymphocytes Abs 2.5 0.9 - 3.2 x10(3)/[facility] Monocytes % 7.8 % [facility] Monocyte Abs 0.5 0.3 - 0.9 x10(3)/[facility] Eosinophils % 3.6 % [facility] Eosinophils Abs 0.2 0.0 - 0.4 x10(3)/[facility] Basophils % 0.7 % [facility] Basophils Abs 0.0 0.0 - 0.1 x10(3)/[facility] Immature Gran % 0.30 % [facility] Comment: Immature granulocytes(IG's)percentage and absolute count will include metamyelocytes, myelocytes, and promyelocytes. Blood smears from CBCs yielding IG's will be scanned manually for concordance. If this scan disagrees with the automated IG or if promyelocytes are noted, a manual differential will be performed. Shonda Gran Abs 0.02 0.00 - 0.04 x10(3)/[facility] Blood 06/24/2023 3:38 AM EDT 06/24/2023 3:49 AM EDT Narrative Resulting Agency Comment Spec In Lab Terrence Keating MD HEMATOLOGY ORDERABLE S Performing Organization Address City/[facility]/ZIP Co de Phone Number [facility] [place] [address] * Hemogram (06/24/2023 3:38 AM EDT) Pathologist [facility] WBC 6.9 4.0 - 9.5 x10(3)/[facility] RBC 4.36 4.00 - 5.21 x10(6)/[facility] Hemoglobin 13.6 11.7 - 15.5 g/dL [facility] Hematocrit 40.7 35.7 - 45.8 % [facility] MCV 93.3 82.6 - 94.4 fL [facility] MCH 31.2 27.1 - 32.0 pg [facility] MCHC 33.4 31.7 - 35.0 g/dL [facility] Platelets 220 145 - 357 x10(3)/[facility] RDWSD 44.5 37.0 - 46.0 [facility] RDWCV 13.0 11.5 - 14.1 % [facility] MPV 10.8 7.6 - 12.9 [facility] nRBC % Auto 0.0 % [facility] nRBC Abs Auto 0.000 0.000 - 0.000 x10(3)/[facility] Blood 06/24/2023 3:38 AM EDT 06/24/2023 3:49 AM EDT Narrative Resulting Agency Comment Spec In Lab Terrence Keating MD HEMATOLOGY ORDERABLE S Performing Organization Address City/State/[facility] Co de Phone Number [facility] [place] [address] * Heparin (unfractionated) Level (06/24/2023 3:38 AM EDT) Heparin UFH Level 0.44 IU/mL [facility] Comment: Heparin (anti-Xa) levels [...] Lab Terrence Keating MD HEMATOLOGY ORDERABLE S [facility] [place] [address] * (ABNORMAL) Basic Metabolic Panel (non-fasting) (06/24/2023 3:38 AM EDT) Glucose Lvl 96 65 - 199 mg/dL [facility] Comment:Diabetes: >=200 mg/d L plus symptoms BUN 20(H) 8 - 18 mg/dL [facility] Creatinine 1.14 0.70 - 1.20 mg/dL [facility] [...] questions. Chloride 104 98 - 107 mmol/L [facility] CO2 21(L) 22 - 31 mmol/L [facility] Anion Gap 13 5 - 15 mmol/L [facility] Calcium 9.1 8.5 - 10.5 mg/dL [facility] Estimated GFR 57(L) >=60 mL/min/1. 73 m?? [facility] [...] CHEMISTRY ORDERABL ES Performing Organization Address [facility] Co de Phone Number [facility] [place] [address] * Phosphorus (06/24/2023 3:38 AM EDT) Phosphorus 4.1 2.5 - 4.5 mg/dL [facility] Blood 06/24/2023 3:38 AM EDT 06/24/2023 3:49 AM EDT Narrative Resulting Agency Comment Spec In Lab Eufemia Copeland MD CHEMISTRY ORDERABL ES Performing Organization Address [facility] Co de Phone Number [facility] [place] [address] * Magnesium (06/24/2023 3:38 AM EDT) Magnesium 0.96 0.69 - 1.07 mmol/L [facility] Blood 06/24/2023 3:38 AM EDT 06/24/2023 3:49 AM EDT Narrative Resulting Agency Comment Spec In Lab Eufemia Copeland MD CHEMISTRY ORDERABL ES Performing Organization Address [facility] Co de Phone Number [facility] [place] [address] * Heparin (unfractionated) Level (06/23/2023 9:24 PM EDT) Pathologist [facility] Heparin UFH Level 0.51 IU/mL [facility] Comment: Heparin (anti-Xa) levels [...] MD HEMATOLOGY ORDERABLE S Performing Organization Address City/State/[facility] Co de Phone Number [facility] [place] [address] * Duplex Study Visceral Arteries, Comp (06/23/2023 3:36 PM EDT) [facility] VB Text Report Department: Vascular Surgery Lab Patient: [id number] (LOIDA ROQUE) CPT: [id number] Referring Physician: AILYN IRVIN ?? Phone: Indications: [...] PM EDT) Heparin UFH Level 0.90 IU/mL [facility] Comment: Heparin (anti-Xa) levels [...] Lab Terrence Keating MD HEMATOLOGY ORDERABLE S [facility] [place] [id number] * EKG 12 Lead (06/23/2023 9:54 AM EDT) Ventricular rate 48 BPM MUSE SYSTEM Atrial Rate 48 BPM MUSE SYSTEM P-R Interval 192 ms MUSE SYSTEM QRS Duration 92 ms MUSE SYSTEM Q-T Interval 462 ms MUSE SYSTEM QTC Calculated (Bezet) 412 ms MUSE SYSTEM Calculated P [place] 21 degrees MUSE SYSTEM Calculated R [place] 20 degrees MUSE SYSTEM Calculated T [place] 16 degrees MUSE SYSTEM INTERPRETATION Sinus bradycardia [...] 4:12 AM EDT) Neutrophils % 52.8 % [facility] Neutr Abs (ANC) 4.30 1.70 - 6.10 x10(3)/[facility] Lymphocytes % 33.9 % [facility] Lymphocytes Abs 2.8 0.9 - 3.2 x10(3)/[facility] Monocytes % 8.3 % [facility] Monocyte Abs 0.7 0.3 - 0.9 x10(3)/[facility] Eosinophils % 3.9 % [facility] Eosinophils Abs 0.3 0.0 - 0.4 x10(3)/[facility] Basophils % 0.7 % [facility] Basophils Abs 0.1 0.0 - 0.1 x10(3)/[facility] Immature Gran % 0.40 % [facility] Comment: Immature granulocytes(IG's)percentage and absolute count will include metamyelocytes, myelocytes, and promyelocytes. Blood smears from CBCs yielding IG's will be scanned manually for concordance. If this scan disagrees with the automated IG or if promyelocytes are noted, a manual differential will be performed. Shonda Gran Abs 0.03 0.00 - 0.04 x10(3)/[facility] Blood 06/23/2023 4:12 AM EDT 06/23/2023 4:38 AM EDT Narrative Resulting Agency Comment Spec In Lab Terrence Keating MD HEMATOLOGY ORDERABLE S [facility] [place] [address] * Hemogram (06/23/2023 4:12 AM EDT) WBC 8.2 4.0 - 9.5 x10(3)/[facility] RBC 4.59 4.00 - 5.21 x10(6)/[facility] Hemoglobin 14.3 11.7 - 15.5 g/dL [facility] Hematocrit 43.1 35.7 - 45.8 % [facility] MCV 93.9 82.6 - 94.[address] [facility] MCH 31.2 27.1 - 32.[address] [facility] MCHC 33.2 31.7 - 35.0 g/dL [facility] Platelets 233 145 - 357 x10(3)/[facility] RDWSD 44.2 37.0 - 46.0 fL [facility] RDWCV 13.0 11.5 - 14.1 % [facility] MPV 11.3 7.6 - 12.9 fL [facility] nRBC % Auto 0.0 % [facility] nRBC Abs Auto 0.000 0.000 - 0.000 x10(3)/[facility] Blood 06/23/2023 4:12 AM EDT 06/23/2023 4:38 AM EDT Narrative Resulting Agency Comment Spec In Lab Terrence Keating MD HEMATOLOGY ORDERABLE S [facility] [place] [phone] * (ABNORMAL) Heparin (unfractionated) Level (06/23/2023 4:12 AM EDT) Heparin UFH Level 1.95(Crit ical) IU/mL [facility] Comment: Critical Result [...] Lab Terrence Keating MD HEMATOLOGY ORDERABLE S [facility] [place] [address] * (ABNORMAL) Basic Metabolic Panel (non-fasting) (06/23/2023 4:12 AM EDT) Glucose Lvl 87 65 - 199 mg/dL [facility] Comment:Diabetes: >=200 mg/d L plus symptoms BUN 23(H) 8 - 18 mg/dL [facility] Creatinine 1.08 0.70 - 1.20 mg/dL [facility] Sodium 137 135 - 145 mmol/L [facility] [...] mmol/L [facility] Anion Gap 12 5 - 15 mmol/L [facility] Calcium 9.3 8.5 - 10.5 mg/dL [facility] Estimated GFR 61 >=60 mL/min/1. 73 m?? [facility] [...] CHEMISTRY ORDERABL ES Performing Organization Address [facility] de Phone Number [facility] [place] [address] * Phosphorus (06/23/2023 4:12 AM EDT) Phosphorus 4.5 2.5 - 4.5 mg/dL [facility] Blood 06/23/2023 4:12 AM EDT 06/23/2023 4:38 AM EDT Narrative Resulting Agency Comment Spec In Lab Eufemia Copeland MD CHEMISTRY ORDERABL ES Performing Organization Address [facility] de Phone Number [facility] [place] [address] * Magnesium (06/23/2023 4:12 AM EDT) Magnesium 1.03 0.69 - 1.07 mmol/L [facility] Blood 06/23/2023 4:12 AM EDT 06/23/2023 4:38 AM EDT Narrative Resulting Agency Comment Spec In Lab Eufemia Copeland MD CHEMISTRY ORDERABL ES Performing Organization Address [facility] de Phone Number [facility] [place] [address] * ECHO LMTD W CONTRAST W LMTD SPEC DOPP COLOR DOPP (06/22/2023 4:25 PM EDT) Anatomical Region Laterality Modality Cardiac Other 06/22/2023 2:49 PM EDT Narrative 06/22/2023 4:42 PM EDT [address] [place] [address] ? Echocardiogram Report Name: LOIDA ROQUE ?Study Date: 06/22/2023 02:49 PM ?Patient Location: [place] [id number] A ??HR: 57 : 1970 ?Height: 162 cm ? Account: [id number] Age: 53 yrs ?Weight: 102 kg Gender: [...] slight decrease in LV systolic function. Procedure Complete-95320. Satisfactory quality. There is normal sinus rhythm. [...] Note Jose Gallegos MD - 06/22/2023 1 [place] [address] Echocardiogram Report Name: LOIDA ROQUE Study Date: 06/22/2023 02:49 PM Patient Location: [place] [id number] A HR:57 : 1970 Height: 162 cmAccount: [id number] Age: 53 yrs Weight: 102 kg Gender: [...] a slightdecrease in LV systolic function. Procedure Complete-54993. Satisfactory quality. There is normal sinus rhythm. [...] PM EDT) Troponin-T HS 22(H) <=14 ng/L [facility] Comment: This patient's troponin T [...] can be found in the [facility] Laboratory Test Catalog Troponin - [facility] Laboratory Test Catalog Reference: Fourth [place] Definition of Myocardial Infarction. Journal of the [place] [employer] 2018;72:4672-7842 Blood 06/22/2023 2:38 PM EDT 06/22/2023 2:50 PM EDT Narrative Resulting Agency Comment Spec In Lab Ailyn Irvin MD CHEMISTRY ORDERABLES Performing Organization Address City/[facility] Co de Phone Number [facility] [place] [address] * Duplex for DVT, Arm, Unilat (06/22/2023 2:24 PM EDT) VB Text Report Department: Vascular Surgery Lab Patient: [id number] (LOIDA ROQUE) CPT: [id number] Referring Physician: AILYN IRVIN ?? Phone: Indications: [...] Irvin MD VASCULAR ORDERABLES Performing Organization Address [facility] Co de Phone Number [email or web address] * [...] questions please contact the health acute care physical therapist that requested 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 ? Electronically signed by: Itz Hayward MD, [facility] ??([phone]), at 06/22/2023 11:47 AM Narrative 06/22/2023 11:47 [...] have questions please contactthe health acute care physical therapist that requested 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 Ailyn Irvin MD IMG DX ORDERABLES * (ABNORMAL) Troponin (06/22/2023 11:24 AM EDT) [facility] Signature Troponin-T HS 22(H) <=14 ng/L [facility] Comment: This patient's troponin T [...] can be found in the [facility] Laboratory Test Catalog Troponin - [facility] Laboratory Test Catalog Reference: Fourth [place] Definition of Myocardial Infarction. Journal of the [place] [employer] 2018;72:7509-8342 Blood 06/22/2023 11:2 4 AM EDT 06/22/2023 11:44 AM EDT Narrative Resulting Agency Comment Spec In Lab Ailyn Irvin MD CHEMISTRY ORDERABLES [facility] [place] [id number] * EKG 12 Lead (06/22/2023 11:13 AM EDT) Ventricular rate 63 BPM MUSE SYSTEM Atrial Rate 63 BPM MUSE SYSTEM P-R Interval 162 ms MUSE SYSTEM QRS Duration 86 ms MUSE SYSTEM Q-T Interval 382 ms MUSE SYSTEM QTC Calculated (Bezet) 390 ms MUSE SYSTEM Calculated P [place] 24 degrees MUSE SYSTEM Calculated R [place] 32 degrees MUSE SYSTEM Calculated T [place] -2 degrees MUSE SYSTEM INTERPRETATION Normal sinus rhythm Septal infarct (cited on or before 22-JUN-2023) Possible Lateral infarct , age undetermined ST & T wave abnormality, consider inferolateral ischemia Abnormal ECG When compared with ECG of 22-JUN-2023 10:55, No significant change was found Confirmed by MD Angelo Danette ([id number]) on 06/22/2023 3:56:31 PM MUSE SYSTEM 06/22/2023 [...] (Bezet) 411 ms MUSE SYSTEM Calculated P [place] 22 degrees MUSE SYSTEM Calculated R [place] 20 degrees MUSE SYSTEM Calculated T [place] 10 degrees MUSE SYSTEM INTERPRETATION Sinus bradycardia Septal infarct , age undetermined ST & T wave abnormality, consider inferolateral ischemia Abnormal ECG When compared with ECG of 21-JUN-2023 10:06, Septal infarct is now Present Confirmed by MD Petey, Kia ([id number]) on 06/22/2023 3:55:53 PM MUSE SYSTEM 06/22/2023 10:5 5 AM EDT 06/22/2023 3:55 PM EDT Ailyn Irvin MD ECG ORDERABLES Performing Organization Address City/[facility] Co de Phone Number MUSE SYSTEM * Differential, Automated (06/22/2023 4:34 AM EDT) Neutrophils % 54.4 % [facility] Neutr Abs (ANC) 4.07 1.70 - 6.10 x10(3)/[facility] Lymphocytes % 30.6 % [facility] Lymphocytes Abs 2.3 0.9 - 3.2 x10(3)/[facility] LABORATORY Monocytes % 9.9 % [facility] Monocyte Abs 0.7 0.3 - 0.9 x10(3)/[facility] Eosinophils % 4.3 % [facility] Eosinophils Abs 0.3 0.0 - 0.4 x10(3)/[facility] Basophils % 0.7 % [facility] Basophils Abs 0.0 0.0 - 0.1 x10(3)/[facility] Immature Gran % 0.10 % [facility] Comment: Immature granulocytes(IG's)percentage and absolute count will include metamyelocytes, myelocytes, and promyelocytes. Blood smears from CBCs yielding IG's will be scanned manually for concordance. If this scan disagrees with the automated IG or if promyelocytes are noted, a manual differential will be performed. Shonda Gran Abs 0.01 0.00 - 0.04 x10(3)/[facility] Blood 06/22/2023 4:34 AM EDT 06/22/2023 4:42 AM EDT Narrative Resulting Agency Comment Spec In Lab Terrence Keating MD HEMATOLOGY ORDERABLE S [facility] [place] [address] * (ABNORMAL) Hemogram (06/22/2023 4:34 AM EDT) WBC 7.5 4.0 - 9.5 x10(3)/[facility] RBC 4.04 4.00 - 5.21 x10(6)/[facility] Hemoglobin 12.8 11.7 - 15.5 g/dL [facility] Hematocrit 39.1 35.7 - 45.8 % [facility] MCV 96.8(H) 82.6 - 94.4 fL [facility] MCH 31.7 27.1 - 32.0 pg [facility] MCHC 32.7 31.7 - 35.0 g/dL [facility] Platelets 225 145 - 357 x10(3)/[facility]ORATORY RDWSD 45.9 37.0 - 46.0 [facility]ORATORY RDWCV 13.0 11.5 - 14.1 % [facility] MPV 10.6 7.6 - 12.9 [facility]ORY nRBC % Auto 0.0 % [facility] nRBC Abs Auto 0.000 0.000 - 0.000 x10(3)/mcL [facility] Blood 06/22/2023 4:34 AM EDT 06/22/2023 4:42 AM EDT Narrative Resulting Agency Comment Spec In Lab Terrence Keating MD HEMATOLOGY ORDERABLE S [facility] [place] [address] * (ABNORMAL) Basic Metabolic Panel (non-fasting) (06/22/2023 4:34 AM EDT) Glucose Lvl 94 65 - 199 mg/dL [facility] Comment:Diabetes: >=200 mg/d L plus symptoms BUN 22(H) 8 - 18 mg/dL [facility] Creatinine 1.19 0.70 - 1.20 mg/dL [facility] Sodium 138 135 - 145 mmol/L [facility] Potassium 3.9 3.5 - 5.0 mmol/L [facility] Comment: Please note: ??Patients with WBC >100,000 may have falsely elevated Potassium levels. ??For accurate Potassium quantification in these patients send serum separator tube (gold top) for subsequent determinations. ??Contact the Clinical Chemistry Laboratory if there are any questions. Chloride 102 98 - 107 mmol/L [facility] CO2 19(L) 22 - 31 mmol/L [facility] Anion Gap 17(H) 5 - 15 mmol/L [facility] Calcium 9.4 8.5 - 10.5 mg/dL [facility] Estimated GFR 54(L) >=60 mL/min/1. 73 m?? [facility] [...] MD CHEMISTRY ORDERABL ES Performing Organization Address City/[facility]/ZIP Co de Phone Number [facility] [place] [address] * (ABNORMAL) Phosphorus (06/22/2023 4:34 AM EDT) Phosphorus 4.9(H) 2.5 - 4.5 mg/dL [facility] Blood 06/22/2023 4:34 AM EDT 06/22/2023 4:42 AM EDT Narrative Resulting Agency Comment Spec In Lab Eufemia Copeland MD CHEMISTRY ORDERABL ES Performing Organization Address [facility]/ZIP Co de Phone Number [facility] [place] [address] * Magnesium (06/22/2023 4:34 AM EDT) Magnesium 1.02 0.69 - 1.07 mmol/L [facility] Blood 06/22/2023 4:34 AM EDT 06/22/2023 4:42 AM EDT Narrative Resulting Agency Comment Spec In Lab Eufemia Copeland MD CHEMISTRY ORDERABL ES Performing Organization Address [facility] Co de Phone Number [facility] [place] [address] * CT Abdomen & Pelvis w Contrast [...] questions please contact the health acute care physical therapist that requested 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 ? Narrative 06/22/2023 7:59 AM EDT EXAMINATION: CT [...] have questions please contactthe health acute care physical therapist that requested 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 Eufemia Copeland MD IMG CT ORDERABLES * EKG 12 Lead (06/21/2023 10:06 AM EDT) Ventricular rate 51 BPM MUSE SYSTEM Atrial Rate 51 BPM MUSE SYSTEM P-R Interval 176 ms MUSE SYSTEM QRS Duration 92 ms MUSE SYSTEM Q-T Interval 450 ms MUSE SYSTEM QTC Calculated (Bezet) 414 ms MUSE SYSTEM Calculated P [place] 17 degrees MUSE SYSTEM Calculated R [place] 35 degrees MUSE SYSTEM Calculated T [place] 13 degrees MUSE SYSTEM INTERPRETATION Sinus bradycardia [...] AM EDT) Troponin-T HS 22(H) <=14 ng/L [facility] Comment: This patient's troponin T [...] can be found in the [facility] Laboratory Test Catalog Troponin - [facility] Laboratory Test Catalog Reference: Fourth [place] Definition of Myocardial Infarction. Journal of the [place] [employer] 2018;72:1638-3717 Blood 06/21/2023 9:45 AM EDT 06/21/2023 10:08 AM EDT Narrative Resulting Agency Comment Spec In Lab Eufemia Copeland MD CHEMISTRY ORDERABL ES Performing Organization Address City/[facility]/ZIP Co de Phone Number [facility] [place] [address] * (ABNORMAL) pro-Brain Natriuretic Peptide (06/21/2023 5:58 AM EDT) ProBNP 1,370(H) <=124 pg/mL [facility] Blood Venous Draw / Unknown 06/21/2023 5:58 AM EDT 06/21/2023 7:28 AM EDT Narrative Resulting Agency Comment Spec In Lab Eufemia Copeland MD CHEMISTRY ORDERABL ES Performing Organization Address [facility] Co de Phone Number [facility] [place] [address] * Potassium (06/21/2023 5:58 AM EDT) Potassium 4.0 3.5 - 5.0 mmol/L [facility] [...] MD CHEMISTRY ORDERABL ES Performing Organization Address City/[facility]/ZIP Co de Phone Number [facility] [place] [address] * Differential, Automated (06/21/2023 3:25 AM EDT) Neutrophils % 54.0 % [facility] Neutr Abs (ANC) 5.02 1.70 - 6.10 x10(3)/[facility] Lymphocytes % 31.8 % [facility] Lymphocytes Abs 3.0 0.9 - 3.2 x10(3)/[facility] Monocytes % 8.9 % [facility] Monocyte Abs 0.8 0.3 - 0.9 x10(3)/[facility] Eosinophils % 4.2 % [facility] Eosinophils Abs 0.4 0.0 - 0.4 x10(3)/[facility] Basophils % 0.8 % [facility] Basophils Abs 0.1 0.0 - 0.1 x10(3)/[facility] Immature Gran % 0.30 % [facility] Comment: Immature granulocytes(IG's)percentage and absolute count will include metamyelocytes, myelocytes, and promyelocytes. Blood smears from CBCs yielding IG's will be scanned manually for concordance. If this scan disagrees with the automated IG or if promyelocytes are noted, a manual differential will be performed. Shonda Gran Abs 0.03 0.00 - 0.04 x10(3)/[facility] Blood 06/21/2023 3:25 AM EDT 06/21/2023 3:45 AM EDT Narrative Resulting Agency Comment Spec In Lab Terrence Keating MD HEMATOLOGY ORDERABLE S [facility] [place] [address] * Hemogram (06/21/2023 3:25 AM EDT) WBC 9.3 4.0 - 9.5 x10(3)/[facility] RBC 4.74 4.00 - 5.21 x10(6)/[facility] Hemoglobin 14.9 11.7 - 15.5 g/dL [facility] Hematocrit 44.2 35.7 - 45.8 % [facility] MCV 93.2 82.6 - 94.4 [facility] MCH 31.4 27.1 - 32.0 pg [facility] MCHC 33.7 31.7 - 35.0 g/dL [facility] Platelets 279 145 - 357 x10(3)/[facility]ORY RDWSD 44.7 37.0 - 46.0 [facility]ORY RDWCV 13.1 11.5 - 14.1 % [facility] MPV 11.1 7.6 - 12.9 [facility] nRBC % Auto 0.0 % [facility] nRBC Abs Auto 0.000 0.000 - 0.000 x10(3)/[facility] Blood 06/21/2023 3:25 AM EDT 06/21/2023 3:45 AM EDT Narrative Resulting Agency Comment Spec In Lab Terrence Keating MD HEMATOLOGY ORDERABLE S [facility] [place] [address] * (ABNORMAL) Basic Metabolic Panel (non-fasting) (06/21/2023 3:25 AM EDT) Glucose Lvl 95 65 - 199 mg/dL [facility] Comment:Diabetes: >=200 mg/d L plus symptoms BUN 27(H) 8 - 18 mg/dL [facility] Creatinine 1.11 0.70 - 1.20 mg/dL [facility] Sodium 138 135 - 145 mmol/L [facility] Potassium Not Perf 3.5 - 5.0 [facility] Comment: Unable to quantitate [...] questions. Chloride 100 98 - 107 mmol/L [facility] CO2 26 22 - 31 mmol/L [facility] Anion Gap 12 5 - 15 mmol/L [facility] Calcium 9.7 8.5 - 10.5 mg/dL [facility] [...] Lab Eufemia Copeland MD CHEMISTRY ORDERABL ES [facility] [place] [address] * (ABNORMAL) Phosphorus (06/21/2023 3:25 AM EDT) Phosphorus 5.1(H) 2.5 - 4.5 mg/dL [facility] Blood 06/21/2023 3:25 AM EDT 06/21/2023 3:45 AM EDT Narrative Resulting Agency Comment Spec In Lab Eufemia Copeland MD CHEMISTRY ORDERABL ES Performing Organization Address City/[facility]/ZIP Co de Phone Number [facility] [place] [address] * Magnesium (06/21/2023 3:25 AM EDT) Pathologist [facility] Magnesium 1.04 0.69 - 1.07 mmol/L [facility] Blood 06/21/2023 3:25 AM EDT 06/21/2023 3:45 AM EDT Narrative Resulting Agency Comment Spec In Lab Eufemia Copeland MD CHEMISTRY ORDERABL ES Performing Organization Address [facility] Co de Phone Number [facility] [place] [address] * (ABNORMAL) Differential, Automated (06/20/2023 3:32 AM EDT) [facility] Neutrophils % 52.5 % [facility] Neutr Abs (ANC) 5.28 1.70 - 6.10 x10(3)/mc L [facility] Lymphocytes % 32.4 % [facility] Lymphocytes Abs 3.3(H) 0.9 - 3.2 x10(3)/mc L [facility] Monocytes % 9.7 % [facility] Monocyte Abs 1.0(H) 0.3 - 0.9 x10(3)/mc L [facility] Eosinophils % 4.3 % [facility] Eosinophils Abs 0.4 0.0 - 0.4 x10(3)/mc L [facility] Basophils % 0.7 % [facility] Basophils Abs 0.1 0.0 - 0.1 x10(3)/mc L [facility] Immature Gran % 0.40 % [facility] Comment: Immature granulocytes(IG's)percentage and absolute count will include metamyelocytes, myelocytes, and promyelocytes. Blood smears from CBCs yielding IG's will be scanned manually for concordance. If this scan disagrees with the automated IG or if promyelocytes are noted, a manual differential will be performed. Shonda Gran Abs 0.04 0.00 - 0.04 x10(3)/mc L [facility] Blood 06/20/2023 3:32 AM EDT 06/20/2023 3:47 AM EDT Narrative Resulting Agency Comment Spec In Lab Terrence Keating MD HEMATOLOGY ORDERABLE S [facility] [place] [address] * (ABNORMAL) Hemogram (06/20/2023 3:32 AM EDT) WBC 10.1(H) 4.0 - 9.5 x10(3)/[facility] RBC 4.57 4.00 - 5.21 x10(6)/[facility] Hemoglobin 14.2 11.7 - 15.5 g/dL [facility] Hematocrit 41.5 35.7 - 45.8 % [facility] MCV 90.8 82.6 - 94.4 [facility] MCH 31.1 27.1 - 32.0 pg [facility] MCHC 34.2 31.7 - 35.0 g/dL [facility] Platelets 253 145 - 357 x10(3)/[facility]ORY RDWSD 43.7 37.0 - 46.0 [facility]ORY RDWCV 13.2 11.5 - 14.1 % [facility] MPV 10.8 7.6 - 12.9 [facility] nRBC % Auto 0.0 % [facility] nRBC Abs Auto 0.000 0.000 - 0.000 x10(3)/[facility] Blood 06/20/2023 3:32 AM EDT 06/20/2023 3:47 AM EDT Narrative Resulting Agency Comment Spec In Lab Terrence Keating MD HEMATOLOGY ORDERABLE S [facility] [place] [address] * (ABNORMAL) Basic Metabolic Panel (non-fasting) (06/20/2023 3:32 AM EDT) Glucose Lvl 99 65 - 199 mg/dL [facility] Comment:Diabetes: >=200 mg/d L plus symptoms BUN 26(H) 8 - 18 mg/dL [facility] Creatinine 1.12 0.70 - 1.20 mg/dL [facility] Sodium 137 135 - 145 mmol/L [facility] Potassium 3.7 3.5 - 5.0 mmol/L [facility] Comment: Please note: ??Patients with WBC >100,000 may have falsely elevated Potassium levels. ??For accurate Potassium quantification in these patients send serum separator tube (gold top) for subsequent determinations. ??Contact the Clinical Chemistry Laboratory if there are any questions. Chloride 102 98 - 107 mmol/L [facility] CO2 22 22 - 31 mmol/L [facility] Anion Gap 13 5 - 15 mmol/L [facility] Calcium 9.4 8.5 - 10.5 mg/dL [facility] Estimated GFR 58(L) >=60 mL/min/1. 73 m?? [facility] [...] CHEMISTRY ORDERABL ES Performing Organization Address [facility] Co de Phone Number [facility] [place] [address] * Phosphorus (06/20/2023 3:32 AM EDT) Phosphorus 4.3 2.5 - 4.5 mg/dL [facility] Blood 06/20/2023 3:32 AM EDT 06/20/2023 3:47 AM EDT Narrative Resulting Agency Comment Spec In Lab Eufemia Copeland MD CHEMISTRY ORDERABL ES Performing Organization Address [facility] de Phone Number [facility] [place] [address] * Magnesium (06/20/2023 3:32 AM EDT) Magnesium 1.00 0.69 - 1.07 mmol/L [facility] Blood 06/20/2023 3:32 AM EDT 06/20/2023 3:47 AM EDT Narrative Resulting Agency Comment Spec In Lab Eufemia Copeland MD CHEMISTRY ORDERABL ES Performing Organization Address [facility] Co de Phone Number [facility] [place] [address] * Phosphorus (06/19/2023 5:26 PM EDT) Phosphorus 4.0 2.5 - 4.5 mg/dL [facility] Blood 06/19/2023 5:26 PM EDT 06/19/2023 5:32 PM EDT Narrative Resulting Agency Comment Spec In Lab Eufemia Copeland MD CHEMISTRY ORDERABL ES Performing Organization Address City/[facility]/ZIP Co de Phone Number [facility] [place] [address] * Magnesium (06/19/2023 5:26 PM EDT) Magnesium 0.98 0.69 - 1.07 mmol/L [facility] Blood 06/19/2023 5:26 PM EDT 06/19/2023 5:32 PM EDT Narrative Resulting Agency Comment Spec In Lab Eufemia Copeland MD CHEMISTRY ORDERABL ES Performing Organization Address [facility] Co de Phone Number [facility] [place] [address] * (ABNORMAL) Basic Metabolic Panel (non-fasting) (06/19/2023 5:26 PM EDT) Pathologist [facility] Glucose Lvl 105 65 - 199 mg/dL [facility] Comment:Diabetes: >=200 mg/d L plus symptoms BUN 21(H) 8 - 18 mg/dL [facility] Creatinine 1.06 0.70 - 1.20 mg/dL [facility] Sodium 139 135 - 145 mmol/L [facility] Potassium 3.9 3.5 - 5.0 mmol/L [facility] [...] 15 mmol/L [facility] Calcium 9.5 8.5 - 10.5 mg/dL [facility] Estimated GFR 62 >=60 mL/min/1. 73 m?? [facility] [...] CHEMISTRY ORDERABL ES Performing Organization Address [facility] de Phone Number [facility] [place] [address] * EKG 12 Lead (06/19/2023 4:24 AM EDT) Ventricular rate 66 BPM MUSE SYSTEM Atrial Rate 66 BPM MUSE SYSTEM P-R Interval 188 ms MUSE SYSTEM QRS Duration 92 ms MUSE SYSTEM Q-T Interval 484 ms MUSE SYSTEM QTC Calculated (Bezet) 507 ms MUSE SYSTEM Calculated P [place] 32 degrees MUSE SYSTEM Calculated R [place] 22 degrees MUSE SYSTEM Calculated T [place] 47 degrees MUSE SYSTEM INTERPRETATION Normal sinus rhythm Nonspecific ST abnormality Prolonged QT Abnormal ECG When compared with ECG of 15-JUN-2023 10:50, No significant change was found Confirmed by MD AKIRA, CINDY ([id number]) on 06/19/2023 2:42:42 PM MUSE SYSTEM 06/19/2023 4:24 AM EDT 06/19/2023 2:42 PM EDT Terrence Keating MD ECG ORDERABLES Performing Organization Address [facility] Co de Phone Number MUSE SYSTEM * (ABNORMAL) Basic Metabolic Panel (non-fasting) (06/19/2023 3:22 AM EDT) Glucose Lvl 101 65 - 199 mg/dL [facility] Comment:Diabetes: >=200 mg/d L plus symptoms BUN 24(H) 8 - 18 mg/dL [facility] Creatinine 1.04 0.70 - 1.20 mg/dL [facility] Sodium 137 135 - 145 mmol/L [facility] Potassium 3.6 3.5 - 5.0 mmol/L [facility] Comment: Please note: ??Patients with WBC >100,000 may have falsely elevated Potassium levels. ??For accurate Potassium quantification in these patients send serum separator tube (gold top) for subsequent determinations. ??Contact the Clinical Chemistry Laboratory if there are any questions. Chloride 100 98 - 107 mmol/L [facility] CO2 Not Perf - [facility] Comment:Add-on request. Flaca le too old to perform test. Anion Gap Unable to Calculate 5 - 15 mmol/L [facility] Calcium 9.4 8.5 - 10.5 mg/dL [facility] Estimated GFR 64 >=60 mL/min/1 .73 m?? [facility] Comment: This [...] Lab Eufemia Copeland MD CHEMISTRY ORDERABL ES [facility] [place] [address] * Differential, Automated (06/19/2023 3:22 AM EDT) Neutrophils % 54.0 % [facility] Neutr Abs (ANC) 5.08 1.70 - 6.10 x10(3)/[facility] Lymphocytes % 30.7 % [facility] Lymphocytes Abs 2.9 0.9 - 3.2 x10(3)/[facility] Monocytes % 10.0 % [facility] Monocyte Abs 0.9 0.3 - 0.9 x10(3)/[facility] Eosinophils % 4.5 % [facility] Eosinophils Abs 0.4 0.0 - 0.4 x10(3)/[facility] Basophils % 0.6 % [facility] Basophils Abs 0.1 0.0 - 0.1 x10(3)/[facility] Immature Gran % 0.20 % [facility] Comment: Immature granulocytes(IG's)percentage and absolute count will include metamyelocytes, myelocytes, and promyelocytes. Blood smears from CBCs yielding IG's will be scanned manually for concordance. If this scan disagrees with the automated IG or if promyelocytes are noted, a manual differential will be performed. Shonda Gran Abs 0.02 0.00 - 0.04 x10(3)/[facility] Blood 06/19/2023 3:22 AM EDT 06/19/2023 3:47 AM EDT Narrative Resulting Agency Comment Spec In Lab Terrence Keating MD HEMATOLOGY ORDERABLE S [facility] [place] [address] * Hemogram (06/19/2023 3:22 AM EDT) WBC 9.4 4.0 - 9.5 x10(3)/[facility] RBC 4.48 4.00 - 5.21 x10(6)/[facility] Hemoglobin 13.9 11.7 - 15.5 g/dL [facility] Hematocrit 41.7 35.7 - 45.8 % [facility] MCV 93.1 82.6 - 94.4 [facility] MCH 31.0 27.1 - 32.0 pg [facility] MCHC 33.3 31.7 - 35.0 g/dL [facility] Platelets 244 145 - 357 x10(3)/[facility] RDWSD 44.2 37.0 - 46.0 [facility] RDWCV 12.9 11.5 - 14.1 % [facility] MPV 10.9 7.6 - 12.9 [facility] nRBC % Auto 0.0 % [facility] nRBC Abs Auto 0.000 0.000 - 0.000 x10(3)/[facility] Blood 06/19/2023 3:22 AM EDT 06/19/2023 3:47 AM EDT Narrative Resulting Agency Comment Spec In Lab Terrence Keating MD HEMATOLOGY ORDERABLE S Performing Organization Address City/[facility]/ZIP Co de Phone Number [facility] [place] [address] * Phosphorus (06/19/2023 3:22 AM EDT) Phosphorus 4.1 2.5 - 4.5 mg/dL [facility] Blood 06/19/2023 3:22 AM EDT 06/19/2023 3:47 AM EDT Narrative Resulting Agency Comment Spec In Lab Eufemia Copeland MD CHEMISTRY ORDERABL ES Performing Organization Address City/[facility]/ZIP Co de Phone Number [facility] [place] [address] * Magnesium (06/19/2023 3:22 AM EDT) Magnesium 1.00 0.69 - 1.07 mmol/L [facility] Blood 06/19/2023 3:22 AM EDT 06/19/2023 3:47 AM EDT Narrative Resulting Agency Comment Spec In Lab Eufemia Copeland MD CHEMISTRY ORDERABL ES [facility] [place] [address] * (ABNORMAL) Basic Metabolic Panel (non-fasting) (06/18/2023 5:17 PM EDT) Glucose Lvl 115 65 - 199 mg/dL [facility] Comment:Diabetes: >=200 mg/d L plus symptoms BUN 22(H) 8 - 18 mg/dL [facility] Creatinine 1.12 0.70 - 1.20 mg/dL [facility] Sodium 137 135 - 145 mmol/L [facility] [facility] Potassium 4.2 3.5 - 5.0 mmol/L [facility] Comment: Please note: ??Patients with WBC >100,000 may have falsely elevated Potassium levels. ??For accurate Potassium quantification in these patients send serum separator tube (gold top) for subsequent determinations. ??Contact the Clinical Chemistry Laboratory if there are any questions. Chloride 101 98 - 107 mmol/L [facility] CO2 22 22 - 31 mmol/L [facility] Anion Gap 14 5 - 15 mmol/L [facility] Calcium 9.6 8.5 - 10.5 mg/dL [facility] Estimated GFR 58(L) >=60 mL/min/1. 73 m?? [facility] Lab Eufemia Copeland MD CHEMISTRY ORDERABL ES [facility] [place] [address] * (ABNORMAL) Basic Metabolic Panel (non-fasting) (06/18/2023 4:19 AM EDT) Glucose Lvl 96 65 - 199 mg/dL [facility] Comment:Diabetes: >=200 mg/d L plus symptoms BUN 22(H) 8 - 18 mg/dL [facility] Creatinine 0.93 0.70 - 1.20 mg/dL [facility] [...] questions. Chloride 102 98 - 107 mmol/L [facility] CO2 Not Perf 22 - 31 [facility] Comment:Add-on request. Samp le too old to perform test. Anion Gap Unable to Calculate 5 - 15 mmol/L [facility] Calcium 9.5 8.5 - 10.5 mg/dL [facility] Estimated GFR 73 >=60 mL/min/1 .73 m?? [facility] Comment: This [...] Lab Eufemia Copeland MD CHEMISTRY ORDERABL ES [facility] [place] [address] * Differential, Automated (06/18/2023 4:19 AM EDT) Neutrophils % 54.1 % [facility] Neutr Abs (ANC) 4.52 1.70 - 6.10 x10(3)/[facility] Lymphocytes % 31.0 % [facility] Lymphocytes Abs 2.6 0.9 - 3.2 x10(3)/[facility] Monocytes % 9.2 % [facility] Monocyte Abs 0.8 0.3 - 0.9 x10(3)/[facility] Eosinophils % 4.9 % [facility] Eosinophils Abs 0.4 0.0 - 0.4 x10(3)/[facility] Basophils % 0.6 % [facility] Basophils Abs 0.0 0.0 - 0.1 x10(3)/[facility] Immature Gran % 0.20 % [facility] Comment: Immature granulocytes(IG's)percentage and absolute count will include metamyelocytes, myelocytes, and promyelocytes. Blood smears from CBCs yielding IG's will be scanned manually for concordance. If this scan disagrees with the automated IG or if promyelocytes are noted, a manual differential will be performed. Shonda Gran Abs 0.02 0.00 - 0.04 x10(3)/[facility] Blood 06/18/2023 4:19 AM EDT 06/18/2023 4:40 AM EDT Narrative Resulting Agency Comment Spec In Lab Terrence Keating MD [place] [address] * Hemogram (06/18/2023 4:19 AM EDT) WBC 8.4 4.0 - 9.5 x10(3)/[facility] RBC 4.70 4.00 - 5.21 x10(6)/[facility] Hemoglobin 14.5 11.7 - 15.5 g/dL [facility] Hematocrit 42.8 35.7 - 45.8 % [facility] MCV 91.1 82.6 - 94.4 [facility] MCH 30.9 27.1 - 32.0 pg [facility] MCHC 33.9 31.7 - 35.0 g/dL [facility] Platelets 258 145 - 357 x10(3)/[facility] RDWSD 43.6 37.0 - 46.0 [facility] RDWCV 13.0 11.5 - 14.1 % [facility] MPV 10.7 7.6 - 12.9 [facility] nRBC % Auto 0.0 % [facility] nRBC Abs Auto 0.000 0.000 - 0.000 x10(3)/[facility] Blood 06/18/2023 4:19 AM EDT 06/18/2023 4:40 AM EDT Narrative Resulting Agency Comment Spec In Lab Terrence Keating MD HEMATOLOGY ORDERABLE S [facility] [place] [address] * Phosphorus (06/18/2023 4:19 AM EDT) Phosphorus 3.7 2.5 - 4.5 mg/dL [facility] Blood 06/18/2023 4:19 AM EDT 06/18/2023 4:40 AM EDT Narrative Resulting Agency Comment Spec In Lab Eufemia Copeland MD CHEMISTRY ORDERABL ES Performing Organization Address City/[facility]/ZIP Co de Phone Number [facility] [place] [address] * Magnesium (06/18/2023 4:19 AM EDT) Magnesium 1.02 0.69 - 1.07 mmol/L [facility] Blood 06/18/2023 4:19 AM EDT 06/18/2023 4:40 AM EDT Narrative Resulting Agency Comment Spec In Lab Eufemia Copeland MD CHEMISTRY ORDERABL ES Performing Organization Address City/[facility]/ZIP Co de Phone Number [facility] [place] [address] * Phosphorus (06/17/2023 2:26 PM EDT) Phosphorus 2.8 2.5 - 4.5 mg/dL [facility] Blood 06/17/2023 2:26 PM EDT 06/17/2023 2:36 PM EDT Narrative Resulting Agency Comment Spec In Lab Eufemia Copeland MD CHEMISTRY ORDERABL ES Performing Organization Address City/[facility]/ZIP Co de Phone Number [facility] [place] [address] * Magnesium (06/17/2023 2:26 PM EDT) Magnesium 1.01 0.69 - 1.07 mmol/L [facility] Blood 06/17/2023 2:26 PM EDT 06/17/2023 2:36 PM EDT Narrative Resulting Agency Comment Spec In Lab Eufemia Copeland MD CHEMISTRY ORDERABL ES [facility] [place] [address] * (ABNORMAL) Basic Metabolic Panel (non-fasting) (06/17/2023 2:26 PM EDT) Glucose Lvl 103 65 - 199 mg/dL [facility] Comment:Diabetes: >=200 mg/d L plus symptoms BUN 21(H) 8 - 18 mg/dL [facility] Creatinine 1.07 0.70 - 1.20 mg/dL [facility] Sodium 135 135 - 145 mmol/L [facility] Potassium 3.7 3.5 - 5.0 mmol/L [facility] Comment: Please note: ??Patients with WBC >100,000 may have falsely elevated Potassium levels. ??For accurate Potassium quantification in these patients send serum separator tube (gold top) for subsequent determinations. ??Contact the Clinical Chemistry Laboratory if there are any questions. Chloride 97(L) 98 - 107 mmol/L [facility] CO2 24 22 - 31 mmol/L [facility] Anion Gap 14 5 - 15 mmol/L [facility] Calcium 9.6 8.5 - 10.5 mg/dL [facility] Estimated GFR 62 >=60 mL/min/1. 73 m?? [facility] [...] Lab Eufemia Copeland MD CHEMISTRY ORDERABL ES [facility] [place] [address] * XR Abdomen Flat & Upright (06/17/2023 [...] questions please contact the health acute care physical therapist that requested 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 ? Electronically signed by: Wilton Cabrera MD, [facility] ([phone]), at 06/17/2023 5:30 PM Narrative 06/17/2023 5:30 [...] have questions please contactthe health acute care physical therapist that requested 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 Electronically signed by: Wilton Cabrera MD, [facility]([phone]), at 06/17/2023 5:30 PM Eufemia Copeland MD IMG DX ORDERABLES * (ABNORMAL) Basic Metabolic Panel (non-fasting) (06/17/2023 5:01 AM EDT) Glucose Lvl 100 65 - 199 mg/dL [facility] Comment:Diabetes: >=200 mg/d L plus symptoms BUN 24(H) 8 - 18 mg/dL [facility] Creatinine 1.03 0.70 - 1.20 mg/dL [facility] Sodium 136 135 - 145 mmol/L [facility] Potassium Not Perf 3.5 - 5.0 [facility] Comment: Unable to quantitate due to sample hemolysis. ??Sample redraw suggested. Called by: PARRIS, Read back by: Olive Hernandez, Date/Time:06/17/23 05:44. Please note: ??Patients with WBC >100,000 may have falsely elevated Potassium levels. ??For accurate Potassium quantification in these patients send serum separator tube (gold top) for subsequent determinations. ??Contact the Clinical Chemistry Laboratory if there are any questions. Chloride 100 98 - 107 mmol/L [facility] CO2 24 22 - 31 mmol/L [facility] Anion Gap 12 5 - 15 mmol/L [facility] Calcium 9.5 8.5 - 10.5 mg/dL [facility] Estimated GFR 65 >=60 mL/min/1. 73 m?? [facility] [...] Keating MD CHEMISTRY ORDERABLES Performing Organization Address City/State/[facility] Co de Phone Number [facility] [place] [address] * Differential, Automated (06/17/2023 1:11 AM EDT) Neutrophils % 54.5 % [facility] Neutr Abs (ANC) 5.20 1.70 - 6.10 x10(3)/[facility] Lymphocytes % 31.4 % [facility] Lymphocytes Abs 3.0 0.9 - 3.2 x10(3)/[facility] Monocytes % 9.8 % [facility] Monocyte Abs 0.9 0.3 - 0.9 x10(3)/[facility] Eosinophils % 3.4 % [facility] Eosinophils Abs 0.3 0.0 - 0.4 x10(3)/[facility] Basophils % 0.5 % [facility] Basophils Abs 0.0 0.0 - 0.1 x10(3)/[facility] Immature Gran % 0.40 % [facility] Comment: Immature granulocytes(IG's)percentage and absolute count will include metamyelocytes, myelocytes, and promyelocytes. Blood smears from CBCs yielding IG's will be scanned manually for concordance. If this scan disagrees with the automated IG or if promyelocytes are noted, a manual differential will be performed. Shonda Gran Abs 0.04 0.00 - 0.04 x10(3)/[facility] Blood 06/17/2023 1:11 AM EDT 06/17/2023 1:16 AM EDT Narrative Resulting Agency Comment Spec In Lab Terrence Keating MD HEMATOLOGY ORDERABLE S [facility] [place] [address] * Hemogram (06/17/2023 1:11 AM EDT) WBC 9.5 4.0 - 9.5 x10(3)/[facility] RBC 4.60 4.00 - 5.21 x10(6)/[facility] Hemoglobin 14.2 11.7 - 15.5 g/dL [facility] Hematocrit 43.0 35.7 - 45.8 % [facility] MCV 93.5 82.6 - 94.4 fL [facility] MCH 30.9 27.1 - 32.0 pg [facility] MCHC 33.0 31.7 - 35.0 g/dL [facility] Platelets 256 145 - 357 x10(3)/[facility] RDWSD 45.0 37.0 - 46.0 fL [facility] RDWCV 13.2 11.5 - 14.1 % [facility] MPV 10.9 7.6 - 12.9 fL [facility] nRBC % Auto 0.0 % [facility] nRBC Abs Auto 0.000 0.000 - 0.000 x10(3)/[facility] Blood 06/17/2023 1:11 AM EDT 06/17/2023 1:16 AM EDT Narrative Resulting Agency Comment Spec In Lab Terrence Keating MD HEMATOLOGY ORDERABLE S Performing Organization Address [facility] Co de Phone Number [facility] [place] [address] * Magnesium (06/17/2023 1:11 AM EDT) Magnesium 0.96 0.69 - 1.07 mmol/L [facility] Blood 06/17/2023 1:11 AM EDT 06/17/2023 1:16 AM EDT Narrative Resulting Agency Comment Spec In Lab Eufemia Copeland MD CHEMISTRY ORDERABL ES Performing Organization Address [facility] Co de Phone Number [facility] [place] [address] * (ABNORMAL) Basic Metabolic Panel (non-fasting) (06/17/2023 1:11 AM EDT) Glucose Lvl 102 65 - 199 mg/dL [facility] Comment:Diabetes: >=200 mg/d L plus symptoms BUN 24(H) 8 - 18 mg/dL [facility] Creatinine 1.08 0.70 - 1.20 mg/dL [facility] Sodium 137 135 - 145 mmol/L [facility] Potassium 4.1 3.5 - 5.0 mmol/L [facility] Comment: Please note: ??Patients with WBC >100,000 may have falsely elevated Potassium levels. ??For accurate Potassium quantification in these patients send serum separator tube (gold top) for subsequent determinations. ??Contact the Clinical Chemistry Laboratory if there are any questions. Chloride 100 98 - 107 mmol/L [facility] CO2 24 22 - 31 mmol/L [facility] Anion Gap 13 5 - 15 mmol/L [facility] Calcium 9.2 8.5 - 10.5 mg/dL [facility] Estimated GFR 61 >=60 mL/min/1. 73 m?? [facility] [...] In Lab Terrence Keating MD CHEMISTRY ORDERABLES [facility] [place] [address] * (ABNORMAL) Basic Metabolic Panel (non-fasting) (06/16/2023 8:28 PM EDT) Glucose Lvl 111 65 - 199 mg/dL [facility] Comment:Diabetes: >=200 mg/d L plus symptoms BUN 23(H) 8 - 18 mg/dL [facility] Creatinine 1.21(H) 0.70 - 1.20 mg/dL [facility] Sodium 137 135 - 145 mmol/L [facility] Potassium 4.2 3.5 - 5.0 mmol/L [facility] Comment: Please note: ??Patients with WBC >100,000 may have falsely elevated Potassium levels. ??For accurate Potassium quantification in these patients send serum separator tube (gold top) for subsequent determinations. ??Contact the Clinical Chemistry Laboratory if there are any questions. Chloride 99 98 - 107 mmol/L [facility] CO2 26 22 - 31 mmol/L [facility] Anion Gap 12 5 - 15 mmol/L [facility] Calcium 9.3 8.5 - 10.5 mg/dL [facility] Estimated GFR 53(L) >=60 mL/min/1. 73 m?? [facility] [...] Lab Eufemia Copeland MD CHEMISTRY ORDERABL ES [facility] [place] [address] * (ABNORMAL) Basic Metabolic Panel (non-fasting) (06/16/2023 2:29 PM EDT) Glucose Lvl 175 65 - 199 mg/dL [facility] Comment:Diabetes: >=200 mg/d L plus symptoms BUN 25(H) 8 - 18 mg/dL [facility] Creatinine 1.27(H) 0.70 - 1.20 mg/dL [facility] Sodium 135 135 - 145 mmol/L [facility] Potassium 3.9 3.5 - 5.0 mmol/L [facility] Comment: result rechecked-EL Please note: ??Patients with WBC >100,000 may have falsely elevated Potassium levels. ??For accurate Potassium quantification in these patients send serum separator tube (gold top) for subsequent determinations. ??Contact the Clinical Chemistry Laboratory if there are any questions. Chloride 96(L) 98 - 107 mmol/L [facility] CO2 26 22 - 31 mmol/L [facility] Anion Gap 13 5 - 15 mmol/L [facility] Calcium 9.3 8.5 - 10.5 mg/dL [facility] Estimated GFR 50(L) >=60 mL/min/1. 73 m?? [facility] [...] Lab Eufemia Copeland MD CHEMISTRY ORDERABL ES [facility] [place] [address] * (ABNORMAL) Basic Metabolic Panel (non-fasting) (06/16/2023 9:01 AM EDT) Glucose Lvl 148 65 - 199 mg/dL [facility] Comment:Diabetes: >=200 mg/d L plus symptoms BUN 27(H) 8 - 18 mg/dL [facility] Creatinine 1.27(H) 0.70 - 1.20 mg/dL [facility] Sodium 136 135 - 145 mmol/L [facility] Potassium 2.9(Criti edy) 3.5 - 5.0 mmol/L [facility] Comment: called by tmp /read back by (Malia Mcintyre)/ 06/16/23 @957 Please note: ??Patients with WBC >100,000 may have falsely elevated Potassium levels. ??For accurate Potassium quantification in these patients send serum separator tube (gold top) for subsequent determinations. ??Contact the Clinical Chemistry Laboratory if there are any questions. Chloride 91(L) 98 - 107 mmol/L [facility] CO2 32(H) 22 - 31 mmol/L [facility] Anion Gap 13 5 - 15 mmol/L [facility] Calcium 9.7 8.5 - 10.5 mg/dL [facility] Estimated GFR 50(L) >=60 mL/min/1. 73 m?? [facility] [...] Lab Eufemia Copeland MD CHEMISTRY ORDERABL ES [facility] [place] [address] * (ABNORMAL) Magnesium (06/16/2023 3:30 AM EDT) Magnesium 1.09(H) 0.69 - 1.07 mmol/L [facility] Blood Venous Draw / Unknown 06/16/2023 3:30 AM EDT 06/16/2023 3:38 AM EDT Narrative Resulting Agency Comment Spec In Lab Eufemia Copeland MD CHEMISTRY ORDERABL ES Performing Organization Address City/[facility]/ZIP Co de Phone Number [facility] [place] [address] * (ABNORMAL) Differential, Automated (06/16/2023 3:30 AM EDT) Neutrophils % 50.4 % [facility] Neutr Abs (ANC) 4.15 1.70 - 6.10 x10(3)/[facility] LABORATORY Lymphocytes % 33.7 % [facility] Lymphocytes Abs 2.8 0.9 - 3.2 x10(3)/[facility] LABORATORY Monocytes % 11.8 % [facility] Monocyte Abs 1.0(H) 0.3 - 0.9 x10(3)/[facility] LABORATORY Eosinophils % 3.3 % [facility] Eosinophils Abs 0.3 0.0 - 0.4 x10(3)/[facility] Basophils % 0.6 % [facility] Basophils Abs 0.0 0.0 - 0.1 x10(3)/[facility] LABORATORY Immature Gran % 0.20 % [facility] Comment: Immature granulocytes(IG's)percentage and absolute count will include metamyelocytes, myelocytes, and promyelocytes. Blood smears from CBCs yielding IG's will be scanned manually for concordance. If this scan disagrees with the automated IG or if promyelocytes are noted, a manual differential will be performed. Shonda Gran Abs 0.02 0.00 - 0.04 x10(3)/[facility] LAB[facility]ATORY Blood 06/16/2023 3:30 AM EDT 06/16/2023 3:37 AM EDT Narrative Resulting Agency Comment Spec In Lab Terrence Keating MD HEMATOLOGY ORDERABLE S Performing Organization Address City/[facility]/ZIP Co de Phone Number [facility] [place] [address] * Hemogram (06/16/2023 3:30 AM EDT) [facility] WBC 8.2 4.0 - 9.5 x10(3)/[facility] LABORATORY RBC 4.69 4.00 - 5.21 x10(6)/[facility] Hemoglobin 14.5 11.7 - 15.5 g/dL [facility] Hematocrit 42.7 35.7 - 45.8 % [facility] MCV 91.0 82.6 - 94.4 [facility] LAB[facility]ATORY MCH 30.9 27.1 - 32.0 pg [facility] MCHC 34.0 31.7 - 35.0 g/dL [facility] Platelets 260 145 - 357 x10(3)/[facility] LABORATORY RDWSD 43.5 37.0 - 46.0 [facility] LAB[facility]ORY RDWCV 13.0 11.5 - 14.1 % [facility] MPV 11.1 7.6 - 12.9 [facility] LAB[facility]ORY nRBC % Auto 0.0 % [facility] nRBC Abs Auto 0.000 0.000 - 0.000 x10(3)/[facility] Blood 06/16/2023 3:30 AM EDT 06/16/2023 3:37 AM EDT Narrative Resulting Agency Comment Spec In Lab Terrence Keating MD HEMATOLOGY ORDERABLE S [facility] [place] [address] * (ABNORMAL) Basic Metabolic Panel (non-fasting) (06/16/2023 3:30 AM EDT) Pathologist [facility] Glucose Lvl 110 65 - 199 mg/dL [facility] Comment:Diabetes: >=200 mg/d L plus symptoms BUN 28(H) 8 - 18 mg/dL [facility] Creatinine 1.20 0.70 - 1.20 mg/dL [facility] Sodium 135 135 - 145 mmol/L [facility] Potassium 2.7(Criti edy) 3.5 - 5.0 mmol/L [facility] Comment: called by KS /read back by Jolly Friedman / 06/16/23 [id number] Please note: ??Patients with WBC >100,000 may have falsely elevated Potassium levels. ??For accurate Potassium quantification in these patients send serum separator tube (gold top) for subsequent determinations. ??Contact the Clinical Chemistry Laboratory if there are any questions. Chloride 90(L) 98 - 107 mmol/L [facility] CO2 33(H) 22 - 31 mmol/L [facility] Anion Gap 12 5 - 15 mmol/L [facility] Calcium 9.2 8.5 - 10.5 mg/dL [facility] Estimated GFR 54(L) >=60 mL/min/1. 73 m?? [facility] [...] Lab Eufemia Copeland MD CHEMISTRY ORDERABL ES [facility] [place] [address] * Heparin (unfractionated) Level (06/16/2023 3:30 AM EDT) Heparin UFH Level 0.64 IU/mL [facility] Comment: Heparin (anti-Xa) levels [...] Lab Terrence Keating MD HEMATOLOGY ORDERABLE S [facility] [place] [address] * Lipid Panel (Reflex Direct LDL) (06/16/2023 3:30 AM EDT) Chol, Total 190 mg/dL [facility] Comment: Desirable: ? <200 mg/dL Borderline High: 200-239 mg/dL Higher: ?>th=054 mg/dL Triglycerides 126 mg/dL [facility] Comment: Normal: ?<150 mg/dL Borderline High: 150-199 mg/dL High: ?200-499 mg/dL Very High: ? >xh=872 mg/dL HDL 50 mg/dL [facility] Comment: Females: High Risk: <50 mg/dL Males: High Risk: <40 mg/dL LDL Cholesterol 115 mg/dL [facility] Comment: Desirable: ? <100 mg/dL Above Desirable: 100-129 mg/dL Borderline High: 130-159 mg/dL High: ?160-189 mg/dL Very High: ? >cb=670 mg/dL Lipid Interpretation See Note [facility] Comment: It is important [...] ACC/AHA Guidelines (most recently Ysabel et al. [facility] 12/09/21): For individuals with atherosclerotic cardiovascular disease (ASCVD)or LDL >nv=779 mg/dL, use a high-intensity statin (40-80 mg [...] In Lab Terrence Keating MD CHEMISTRY ORDERABLES [facility] [place] [address] * (ABNORMAL) Basic Metabolic Panel (non-fasting) (06/15/2023 9:33 PM EDT) Glucose Lvl 120 65 - 199 mg/dL [facility] Comment:Diabetes: >=200 mg/d L plus symptoms BUN 29(H) 8 - 18 mg/dL [facility] Creatinine 1.38(H) 0.70 - 1.20 mg/dL [facility] Sodium 135 135 - 145 mmol/L [facility] Potassium 3.1(L) 3.5 - 5.0 mmol/L [facility] Comment: Please note: ??Patients with WBC >100,000 may have falsely elevated Potassium levels. ??For accurate Potassium quantification in these patients send serum separator tube (gold top) for subsequent determinations. ??Contact the Clinical Chemistry Laboratory if there are any questions. Chloride 92(L) 98 - 107 mmol/L [facility] CO2 31 22 - 31 mmol/L [facility] Anion Gap 12 5 - 15 mmol/L [facility] Calcium 9.4 8.5 - 10.5 mg/dL [facility] Estimated GFR 45(L) >=60 mL/min/1. 73 m?? [facility] [...] CHEMISTRY ORDERABL ES Performing Organization Address [facility] Co de Phone Number [facility] [place] [address] * Heparin (unfractionated) Level (06/15/2023 9:33 PM EDT) Heparin UFH Level 0.63 IU/mL [facility] Comment: Heparin (anti-Xa) levels [...] MD HEMATOLOGY ORDERABLE S Performing Organization Address City/[facility]/ZIP Co de Phone Number [facility] [place] [address] * (ABNORMAL) Magnesium (06/15/2023 5:47 PM EDT) Magnesium 1.10(H) 0.69 - 1.07 mmol/L [facility] Blood Venous Draw / Unknown 06/15/2023 5:47 PM EDT 06/15/2023 6:10 PM EDT Narrative Resulting Agency Comment Spec In Lab Terrence Keating MD CHEMISTRY ORDERABLES [facility] [place] [address] * (ABNORMAL) Basic Metabolic Panel (non-fasting) (06/15/2023 5:47 PM EDT) Glucose Lvl 147 65 - 199 mg/dL [facility] Comment:Diabetes: >=200 mg/d L plus symptoms BUN 29(H) 8 - 18 mg/dL [facility] Creatinine 1.20 0.70 - 1.20 mg/dL [facility] Sodium 134(L) 135 - 145 mmol/L [facility] Potassium 2.9(Criti edy) 3.5 - 5.0 mmol/L [facility] Comment: Called by: dm, Read back by: qamar ren, Date/Time:06/15/23 19:11. Please note: ??Patients with WBC >100,000 may have falsely elevated Potassium levels. ??For accurate Potassium quantification in these patients send serum separator tube (gold top) for subsequent determinations. ??Contact the Clinical Chemistry Laboratory if there are any questions. Chloride 89(L) 98 - 107 mmol/L [facility] CO2 29 22 - 31 mmol/L [facility] Anion Gap 16(H) 5 - 15 mmol/L [facility] Calcium 9.1 8.5 - 10.5 mg/dL [facility] Estimated GFR 54(L) >=60 mL/min/1. 73 m?? [facility] [...] Lab Eufemia Copeland MD CHEMISTRY ORDERABL ES [facility] [place] [address] * Rapid Drug Screen w/o Confirmation, Urine (06/15/2023 4:46 PM EDT) U Barbiturates Screen None Detected None Detected [facility] Comment: The barbiturate screen [...] U Benzodiazepines Screen None Detected None Detected [facility] Comment: The benzodiazepines screen [...] U Cocaine Screen None Detected None Detected [facility] Comment: The cocaine metabolites screen detects benzoylecgonine (Cocaine Metabolite) at concentrations >150 ng/mL. A ? Presumptive Positive? result indicates that the screening result was positive but has not yet been confirmed by a highly-specific method. As with any screen, occasional false positive results from cross-reacting substances may occur. Not for Medico-Legal Purposes. U Methadone Metabolites Screen None Detected None Detected [facility] Comment: The methadone metabolite screen detects EDDP (major methadone metabolite) at concentrations >100 ng/mL. A ? Presumptive Positive? result indicates that the screening result was positive but has not yet been confirmed by a highly-specific method. As with any screen, occasional false positive results from cross-reacting substances may occur. Not for Medico-Legal Purposes. U Opiate Screen None Detected None Detected [facility] Comment: The opiates screen [...] U Cannabinoid Screen None Detected None Detected [facility] Comment: The marijuana metabolites screen detects the THC metabolite (68-mjj-3-carboxy-delta 9-THC) at concentrations >20 ng/mL. A ? Presumptive Positive? result indicates that the screening result was positive but has not yet been confirmed by a highly-specific method. As with any screen, occasional false positive results from cross-reacting substances may occur. Not for Medico-Legal Purposes. U Oxycodone Screen None Detected None Detected [facility] Comment: The oxycodone screen detects oxycodone and oxymorphone at concentrations >100 ng/mL. A ? Presumptive Positive? result indicates that the screening result was positive but has not yet been confirmed by a highly-specific method. As with any screen, occasional false positive results from cross-reacting substances may occur. Not for Medico-Legal Purposes. U Buprenorphine Screen None Detected None Detected [facility] Comment: The buprenorphine screen [...] characteristics of this test were determined by [facility] in accordance with CLIA requirements. This laboratory is qualified under CLIA to perform high-complexity testing. U Fentanyl Screen None Detected None Detected [facility] Comment: The fentanyl screen [...] characteristics of this test were determined by [facility] in accordance with CLIA requirements. This laboratory is qualified under CLIA to perform high-complexity testing. U Tricyclics Screen None Detected None Detected [facility] Comment: The tricyclics screen [...] characteristics of this test were determined by [facility] in accordance with CLIA requirements. This laboratory is qualified under CLIA to perform high-complexity testing. U Ethanol Screen None Detected None Detected [facility] Comment:This urine ethanol a ssay detects ethanol at concentrations >/= 100 mg/L. U Amphetamines Screen None Detected None Detected [facility] Comment: The amphetamine screen detects d-amphetamine and d-methamphetamine at concentrations >300 ng/mL. A ? Presumptive Positive? result indicates that the screening result was positive but has not yet been confirmed by a highly-specific method. As with any screen, occasional false positive results from cross-reacting substances may occur. Not for Medico-Legal Purposes. U Creat TEE 39 >=20 mg/dL [facility] U Chromate TEE <2.0 <=49.9 mg/L [facility] U Nitrite TEE <50 <=499 mg/L [facility] U Oxidant TEE 12 <=199 mg/L [facility] U pH TEE 5.4 3.0 - 10.9 [facility] U Adulterants Screen None Detected None Detected [facility] Comment:No adulteration of t his urine sample was detected. Urine 06/15/2023 4:46 PM EDT 06/15/2023 5:30 PM EDT Narrative Resulting Agency Comment Spec In Lab Eufemia Copeland MD CHEMISTRY ORDERABL ES Performing Organization Address [facility] Co de Phone Number [facility] [place] [address] * Rapid Drug Screen, Urine (TEE Request) (06/15/2023 4:46 PM EDT) TEE Conf Requested No [facility] TEE Requested See Comment [facility] Comment:Refer to Rapid Drug Screen w/o Confirmation, Urine for results. Urine 06/15/2023 4:46 PM EDT 06/15/2023 5:30 PM EDT Narrative Resulting Agency Comment Spec In Lab Eufemia Copeland MD URINE ORDERABLES Performing Organization Address [facility] Co de Phone Number [facility] [place] [address] * (ABNORMAL) Basic Metabolic Panel (non-fasting) (06/15/2023 2:29 PM EDT) Glucose Lvl 141 65 - 199 mg/dL [facility] Comment:Diabetes: >=200 mg/d L plus symptoms BUN 31(H) 8 - 18 mg/dL [facility] Creatinine 1.21(H) 0.70 - 1.20 mg/dL [facility] Sodium 132(L) 135 - 145 mmol/L [facility] Potassium 3.0(Criti edy) 3.5 - 5.0 mmol/L [facility] Comment: Called by: dm, Read back by: qamar ren, Date/Time:06/15/23 15:18. Please note: ??Patients with WBC >100,000 may have falsely elevated Potassium levels. ??For accurate Potassium quantification in these patients send serum separator tube (gold top) for subsequent determinations. ??Contact the Clinical Chemistry Laboratory if there are any questions. Chloride 89(L) 98 - 107 mmol/L [facility] CO2 32(H) 22 - 31 mmol/L [facility] Anion Gap 11 5 - 15 mmol/L [facility] Calcium 9.6 8.5 - 10.5 mg/dL [facility] Estimated GFR 53(L) >=60 mL/min/1. 73 m?? [facility] [...] Lab Eufemia Copeland MD CHEMISTRY ORDERABL ES [facility] [place] [address] * Heparin (unfractionated) Level (06/15/2023 2:29 PM EDT) Heparin UFH Level 0.93 IU/mL [facility] Comment: Heparin (anti-Xa) levels [...] MD HEMATOLOGY ORDERABLE S Performing Organization Address City/[facility]/ZIP Co de Phone Number [facility] [place] [address] * EKG 12 Lead (06/15/2023 10:50 AM EDT) Ventricular rate 55 BPM MUSE SYSTEM Atrial Rate 55 BPM MUSE SYSTEM P-R Interval 184 ms MUSE SYSTEM QRS Duration 96 ms MUSE SYSTEM Q-T Interval 590 ms MUSE SYSTEM QTC Calculated (Bezet) 565 ms MUSE SYSTEM Calculated P [place] 54 degrees MUSE SYSTEM Calculated R [place] 54 degrees MUSE SYSTEM Calculated T [place] 13 degrees MUSE SYSTEM INTERPRETATION Sinus bradycardia with sinus arrhythmia Marked ST abnormality, possible inferior subendocardial injury Long QT interval Abnormal ECG When compared with ECG of 15-JUN-2023 02:17, Nonspecific T wave abnormality has replaced inverted T waves in Lateral leads Confirmed by Kai Haider ([id number]) on 06/16/2023 3:52:04 PM MUSE SYSTEM 06/15/2023 10:5 0 AM EDT 06/16/2023 3:52 PM EDT Terrence Keating MD ECG ORDERABLES Performing Organization Address [facility] Co de Phone Number MUSE SYSTEM * (ABNORMAL) Basic Metabolic Panel (non-fasting) (06/15/2023 8:18 AM EDT) Glucose Lvl 113 65 - 199 mg/dL [facility] Comment:Diabetes: >=200 mg/d L plus symptoms BUN 29(H) 8 - 18 mg/dL [facility] Creatinine 1.22(H) 0.70 - 1.20 mg/dL [facility] Sodium 134(L) 135 - 145 mmol/L [facility] Potassium 2.5(Criti edy) 3.5 - 5.0 mmol/L [facility] Comment: Called by: cheryl, Read back by: eamon mckeon, Date/Time:06/15/23 09:34. Please note: ??Patients with WBC >100,000 may have falsely elevated Potassium levels. ??For accurate Potassium quantification in these patients send serum separator tube (gold top) for subsequent determinations. ??Contact the Clinical Chemistry Laboratory if there are any questions. Chloride 89(L) 98 - 107 mmol/L [facility] CO2 30 22 - 31 mmol/L [facility] Anion Gap 15 5 - 15 mmol/L [facility] Calcium 10.0 8.5 - 10.5 mg/dL [facility] Estimated GFR 53(L) >=60 mL/min/1. 73 m?? [facility] [...] Lab Eufemia Copeland MD CHEMISTRY ORDERABL ES [facility] [place] [address] * Heparin (unfractionated) Level (06/15/2023 8:18 AM EDT) Heparin UFH Level 0.70 IU/mL [facility] Comment: Heparin (anti-Xa) levels [...] MD HEMATOLOGY ORDERABLE S Performing Organization Address City/State/[facility] Co de Phone Number [facility] [place] [address] * (ABNORMAL) Troponin (06/15/2023 8:18 AM EDT) Troponin-T HS 33(H) <=14 ng/L [facility] Comment: This patient's troponin T [...] can be found in the [facility] Laboratory Test Catalog Troponin - [facility] Test Catalog Reference: Fourth [place] Definition of Myocardial Infarction. Journal of the [place] [employer] 2018;72:7363-0526 Blood 06/15/2023 8:18 AM EDT 06/15/2023 8:34 AM EDT Narrative Resulting Agency Comment Spec In Lab Terrence Keating MD CHEMISTRY ORDERABLES [facility] [place] [address] * Differential, Automated (06/15/2023 4:28 AM EDT) Neutrophils % 48.0 % [facility] Neutr Abs (ANC) 3.20 1.70 - 6.10 x10(3)/[facility] Lymphocytes % 35.8 % [facility] Lymphocytes Abs 2.4 0.9 - 3.2 x10(3)/[facility] Monocytes % 11.4 % [facility] Monocyte Abs 0.8 0.3 - 0.9 x10(3)/[facility] Eosinophils % 3.7 % [facility] Eosinophils Abs 0.2 0.0 - 0.4 x10(3)/[facility] Basophils % 1.0 % [facility] Basophils Abs 0.1 0.0 - 0.1 x10(3)/[facility] Immature Gran % 0.10 % [facility] Comment: Immature granulocytes(IG's)percentage and absolute count will include metamyelocytes, myelocytes, and promyelocytes. Blood smears from CBCs yielding IG's will be scanned manually for concordance. If this scan disagrees with the automated IG or if promyelocytes are noted, a manual differential will be performed. Shonda Gran Abs 0.01 0.00 - 0.04 x10(3)/[facility] Blood 06/15/2023 4:28 AM EDT 06/15/2023 4:37 AM EDT Narrative Resulting Agency Comment Spec In Lab Terrence Keating MD HEMATOLOGY ORDERABLE S [facility] [place] [address] * (ABNORMAL) Hemogram (06/15/2023 4:28 AM EDT) WBC 6.7 4.0 - 9.5 x10(3)/[facility] RBC 5.09 4.00 - 5.21 x10(6)/[facility] Hemoglobin 16.1(H) 11.7 - 15.5 g/dL [facility] Hematocrit 48.2(H) 35.7 - 45.8 % [facility] MCV 94.7(H) 82.6 - 94.4 [facility] MCH 31.6 27.1 - 32.0 pg [facility] MCHC 33.4 31.7 - 35.0 g/dL [facility] Platelets 253 145 - 357 x10(3)/[facility] RDWSD 45.5 37.0 - 46.0 [facility] RDWCV 13.0 11.5 - 14.1 % [facility] MPV 10.6 7.6 - 12.9 [facility] nRBC % Auto 0.0 % [facility] nRBC Abs Auto 0.000 0.000 - 0.000 x10(3)/[facility] Blood 06/15/2023 4:28 AM EDT 06/15/2023 4:37 AM EDT Narrative Resulting Agency Comment Spec In Lab Terrence Keating MD HEMATOLOGY ORDERABLE S [facility] [place] [address] * (ABNORMAL) Troponin (06/15/2023 4:28 AM EDT) Pathologist [facility] Troponin-T HS 34(H) <=14 ng/L [facility] Comment: This patient's troponin T [...] can be found in the [facility] Laboratory Test Catalog Troponin - [facility] Test Catalog Reference: Fourth [place] Definition of Myocardial Infarction. Journal of the [place] [employer] 2018;72:9542-3410 Blood 06/15/2023 4:28 AM EDT 06/15/2023 4:37 AM EDT Narrative Resulting Agency Comment Spec In Lab Terrence Keating MD CHEMISTRY ORDERABLES [facility] [place] [address] * (ABNORMAL) Prothrombin Time (06/15/2023 4:28 AM EDT) PT 12.7(H) 9.4 - 12.5 sec [facility] INR 1.1 [facility] Comment: An INR <2.0 indicates [...] MD HEMATOLOGY ORDERABLE S Performing Organization Address City/[facility]/ZIP Co de Phone Number [facility] [place] [address] * (ABNORMAL) Hepatic Function Panel (06/15/2023 4:28 AM EDT) Total Protein 7.5 6.1 - 8.0 g/dL [facility] Albumin 4.3 3.2 - 5.2 g/dL [facility] AST 32(H) 0 - 30 unit/L [facility] ALT 26 0 - 30 unit/L [facility] Alk Phos 70 35 - 105 unit/L [facility] Total Bilirubin 0.8 0.2 - 1.3 mg/dL [facility] Bili, Direct 0.1 0.0 - 0.3 mg/dL [facility] Blood 06/15/2023 4:28 AM EDT 06/15/2023 4:37 AM EDT Narrative Resulting Agency Comment Spec In Lab Terrence Keating MD CHEMISTRY ORDERABLES Performing Organization Address City/[facility]/ZIP Co de Phone Number [facility] [place] [address] * (ABNORMAL) pro-Brain Natriuretic Peptide (06/15/2023 4:28 AM EDT) ProBNP 1,953(H) <=124 pg/mL [facility] Blood 06/15/2023 4:28 AM EDT 06/15/2023 4:37 AM EDT Narrative Resulting Agency Comment Spec In Lab Terrence Keating MD CHEMISTRY ORDERABLES Performing Organization Address [facility] Co de Phone Number [facility] [place] [address] * TSH (06/15/2023 4:28 AM EDT) TSH 2.98 0.27 - 4.20 mcIU/mL [facility] Comment: Reference Interval (mcIU/mL): Females: ??First Trimester: 0.23-3.88 ??Second Trimester: 0.22-3.90 ??Third Trimester: 0.44-4.66 Blood 06/15/2023 4:28 AM EDT 06/15/2023 4:37 AM EDT Narrative Resulting Agency Comment Spec In Lab Terrence Keating MD CHEMISTRY ORDERABLES Performing Organization Address [facility] Co de Phone Number [facility] [place] [address] * Phosphorus (06/15/2023 4:28 AM EDT) Phosphorus 4.4 2.5 - 4.5 mg/dL [facility] Blood 06/15/2023 4:28 AM EDT 06/15/2023 4:37 AM EDT Narrative Resulting Agency Comment Spec In Lab Terrence Keating MD CHEMISTRY ORDERABLES Performing Organization Address [facility] Co de Phone Number [facility] [place] [address] * (ABNORMAL) Magnesium (06/15/2023 4:28 AM EDT) Magnesium 1.22(H) 0.69 - 1.07 mmol/L [facility] Blood 06/15/2023 4:28 AM EDT 06/15/2023 4:37 AM EDT Narrative Resulting Agency Comment Spec In Lab Terrence Keating MD CHEMISTRY ORDERABLES Performing Organization Address City/[facility]/ZIP Co de Phone Number [facility] [place] [address] * Calcium (06/15/2023 4:28 AM EDT) Calcium 9.7 8.5 - 10.5 mg/dL [facility] Blood 06/15/2023 4:28 AM EDT 06/15/2023 4:37 AM EDT Narrative Resulting Agency Comment Spec In Lab Terrence Keating MD CHEMISTRY ORDERABLES Performing Organization Address [facility] Co de Phone Number [facility] [place] [address] * (ABNORMAL) Basic Metabolic Panel (non-fasting) (06/15/2023 4:28 AM EDT) Glucose Lvl 112 65 - 199 mg/dL [facility] Comment:Diabetes: >=200 mg/d L plus symptoms BUN 30(H) 8 - 18 mg/dL [facility] Creatinine 1.24(H) 0.70 - 1.20 mg/dL [facility] Sodium 134(L) 135 - 145 mmol/L [facility] Potassium 2.7(Criti edy) 3.5 - 5.0 mmol/L [facility] Comment: Called by: , Read back by: Olive Hernandez, Date/Time:06/15/23 05:16. Please note: ??Patients with WBC >100,000 may have falsely elevated Potassium levels. ??For accurate Potassium quantification in these patients send serum separator tube (gold top) for subsequent determinations. ??Contact the Clinical Chemistry Laboratory if there are any questions. Chloride 90(L) 98 - 107 mmol/L [facility] CO2 28 22 - 31 mmol/L [facility] Anion Gap 16(H) 5 - 15 mmol/L [facility] Calcium 9.7 8.5 - 10.5 mg/dL [facility] Estimated GFR 52(L) >=60 mL/min/1. 73 m?? [facility] [...] In Lab Terrence Keating MD CHEMISTRY ORDERABLES [facility] [place] [address] * EKG 12 Lead (06/15/2023 2:17 AM EDT) Ventricular rate 57 BPM MUSE SYSTEM Atrial Rate 57 BPM MUSE SYSTEM P-R Interval 200 ms MUSE SYSTEM QRS Duration 94 ms MUSE SYSTEM Q-T Interval 606 ms MUSE SYSTEM QTC Calculated (Bezet) 591 ms MUSE SYSTEM Calculated P [place] 66 degrees MUSE SYSTEM Calculated R [place] 74 degrees MUSE SYSTEM Calculated T [place] -33 degrees MUSE SYSTEM INTERPRETATION Sinus bradycardia Possible Lateral infarct (cited on or before 17-APR-2023) Marked ST abnormality, possible inferior subendocardial injury Prolonged QTc Abnormal ECG When compared with ECG of 20-APR-2023 10:23, Nonspecific T wave changes QT has lengthened Confirmed by fellow MD Hansa, Sindhu ([id number]) on 06/15/2023 4:36:19 PM Confirmed by MD Angelo Danette ([id number]) on 06/15/2023 4:51:21 PM MUSE SYSTEM 06/15/2023 2:17 AM EDT 06/15/2023 4:51 PM EDT Terrence Keating MD ECG ORDERABLES [employer] SYSTEM documented in this encounter Visit Diagnoses [...] 0854 (Given - Provider: Heidy Paris RN)1332 ([facility] Hold - Provider: Admin Adt - Reason: Transfer to a Procedural area)1548 ([facility] Unhold - Provider: Admin Adt) 0856 (Given [...] Wed06/15/23 at 1700, Until Discontinued, Routine 1332 ([facility] Hold - Provider: Admin Adt - Reason: Transfer to a Procedural area)1548 ([facility] Unhold - Provider: Admin Adt)1656 (Given - Provider: Heidy Paris RN) 1708 (Given - Provider: Heidy Paris RN) clopidogreL (Plavix) tablet 75 mg (CANCELED) 75 mg, Oral, DAILY, First dose on Wed07/03/23 at 0900, Until Discontinued, Routine 0854 (Given - Provider: Heidy Paris RN)1332 ([facility] Hold - Provider: Admin Adt - Reason: Transfer to a Procedural area)1548 ([facility] Unhold - Provider: Admin Adt) 0855 (Given - Provider: Heidy Paris RN) 0930 (Given - Provider: Heidy Paris RN) DULoxetine DR (Cymbalta) capsule 60 mg 60 mg, Oral, DAILY, First dose on Wed06/15/23 at 0900, Until Discontinued, Routine 0853 (Given - Provider: Heidy Paris RN)1332 ([facility] Hold - Provider: Admin Adt - Reason: Transfer to a Procedural area)1548 ([facility] Unhold - Provider: Admin Adt) 0856 (Given - Provider: Heidy Paris RN) 0931 (Given - Provider: Heidy Paris RN) gabapentin (Neurontin) capsule 600 mg 600 mg, Oral, NIGHTLY, First dose on Wed06/15/23 at 0200, Until Discontinued, Routine 1332 (MAY Hold - Provider: Admin Adt - Reason: Transfer to a Procedural area)1548 ([facility] Unhold - Provider: Admin Adt)2136 (Given - [...] Heidy Paris RN - Reason: Patient/family refused)1332 ([facility] Hold - Provider: Admin Adt - Reason: Transfer to a Procedural area)1548 ([facility] Unhold - Provider: Admin Adt) 1000 (Not Given - Provider: Heidy Paris RN - Reason: Patient/family refused) 1000 (Not Given - Provider: Heidy Paris RN - Reason: Patient/family refused) melatonin tablet 6 mg 6 mg, Oral, NIGHTLY, First dose on Wed06/15/23 at 0200, Until Discontinued 1332 ([facility] Hold - Provider: Admin Adt - Reason: Transfer to a Procedural area)1548 ([facility] Unhold - Provider: Admin Adt)2136 (Given - Provider: Lorena Torres, ERWIN) 2116 (Given - Provider: Machelle Busch, ERWIN) metoprolol succinate XL (Toprol-XL) tablet 12.5 mg 12.5 mg, Oral, DAILY, First dose on Wed06/21/23 at 0900, Until Discontinued, DO NOT CRUSH OR OPEN Hold for HR <55 and Sbp <90, Routine 0854 (Given - Provider: Heidy Paris RN)1332 ([facility] Hold - Provider: Admin Adt - Reason: Transfer to a Procedural area)1548 ([facility] Unhold - Provider: Admin Adt) 0900 (Not Given - Provider: Heidy Paris RN - Reason: Order parameters not met) 0930 (Given - Provider: Heidy Paris RN) pantoprazole EC (Protonix) tablet 40 mg 40 mg, Oral, DAILY, First dose on Wed06/15/23 at 0900, Until Discontinued 0854 (Given - Provider: Heidy Paris RN)1332 ([facility] Hold - Provider: Admin Adt - Reason: Transfer to a Procedural area)1548 ([facility] Unhold - Provider: Admin Adt) 0856 (Given [...] Heidy Paris RN - Reason: Patient/family refused)1332 ([facility] Hold - Provider: Admin Adt - Reason: Transfer to a Procedural area)1548 ([facility] Unhold - Provider: Admin Adt) 0900 (Not [...] 0853 (Given - Provider: Heidy Paris RN)1332 ([facility] Hold - Provider: Admin Adt - Reason: Transfer to a Procedural area)1548 ([facility] Unhold - Provider: Admin Adt)213 (Given - [...] Heidy Paris RN - Reason: Patient/family refused)1332 ([facility] Hold - Provider: Admin Adt - Reason: Transfer to a Procedural area)1548 ([facility] Unhold - Provider: Admin Adt) 1000 (Not Given - Provider: Heidy Paris RN - Reason: Patient/family refused) rOPINIRole (Requip) tablet 2 mg 2 mg, Oral, 2 TIMES DAILY, First dose on Wed06/15/23 at 0245, Until Discontinued, Routine 0853 (Given - Provider: Heidy Paris RN)1332 ([facility] Hold - Provider: Admin Adt - Reason: Transfer to a Procedural area)1548 ([facility] Unhold - Provider: Admin Adt)2136 (Given - [...] Heidy Paris RN - Reason: Patient/family refused)1332 ([facility] Hold - Provider: Admin Adt - Reason: Transfer to a Procedural area)1548 ([facility] Unhold - Provider: Admin Adt)2100 (Not Given [...] 0859 (Given - Provider: Heidy Paris RN)1332 ([facility] Hold - Provider: Admin Adt - Reason: Transfer to a Procedural area)1548 ([facility] Unhold - Provider: Admin Adt)2099 (Not Given [...] 0853 (Given - Provider: Heidy Paris RN)1332 ([facility] Hold - Provider: Admin Adt - Reason: Transfer to a Procedural area)1548 ([facility] Unhold - Provider: Admin Adt) 0856 (Given - Provider: Heidy Paris RN) 0931 (Given - Provider: Heidy Paris RN) topiramate (Topamax) tablet 100 mg 100 mg, Oral, NIGHTLY, First dose on Wed06/15/23 at 2100, Until Discontinued, Routine 1332 ([facility] Hold - Provider: Admin Adt - Reason: Transfer to a Procedural area)1548 ([facility] Unhold - Provider: Admin Adt)2137 (Given - [...] - Reason: Transfer to a Procedural area)1548 ([facility] Unhold - Provider: Admin Adt)1815 (Restarted - [...] - Reason: Transfer to a Procedural area)1548 ([facility] Unhold - Provider: Admin Adt) albuteroL (Proventil, Ventolin) (2.5 mg/3 mL) (0.083 %) nebulizer solution 2.5 mg 2.5 mg, Nebulization, EVERY 4 HOURS PRN, Starting on Wed07/04/23 at 0857, Until Wed07/09/23 at 1844, Wheezing, Routine 1332 ([facility] Hold - Provider: Admin Adt - Reason: Transfer to a Procedural area)1548 ([facility] Unhold - Provider: Admin Adt) lidocaine (Xylocaine) 1% (10 mg/mL) injection 3 mg 3 mg (0.3 mL), Subcutaneous, ONCE PRN, 1 dose, Starting on Wed06/15/23 at 0146, Until Wed07/09/23 at 1844, for discomfort with PIV insertion, Routine 1332 ([facility] Hold - Provider: Admin Adt - Reason: Transfer to a Procedural area)1548 ([facility] Unhold - Provider: Admin Adt) loratadine (Claritin) tablet 10 mg 10 mg, Oral, DAILY PRN, Starting on Wed06/15/23 at 0146, Until Wed07/09/23 at 1844, allergies, Routine 1332 ([facility] Hold - Provider: Admin Adt - Reason: Transfer to a Procedural area)1548 ([facility] Unhold - Provider: Admin Adt) nitroGLYcerin (Nitrostat) disintegrating tablet 0.4 mg 0.4 mg, Sublingual, EVERY 5 MIN PRN, Starting on Wed06/22/23 at 1119, Until Wed07/09/23 at 1844, Chest pain, SL nitroglycerin may be repeated every 5 minutes as needed up to 3 doses, Routine 1332 ([facility] Hold - Provider: Admin Adt - Reason: Transfer to a Procedural area)1548 ([facility] Unhold - Provider: Admin Adt) 0951 (Given - Provider: Heidy Paris, ERWIN) ondansetron (pf) (Zofran) (2 mg/mL) injection 4 mg 4 mg, Intravenous, EVERY 8 HOURS PRN, Starting on Wed06/29/23 at 1449, Until Wed07/09/23 at 1844, Nausea 1332 ([facility] Hold - Provider: Admin Adt - Reason: Transfer to a Procedural area)1548 ([facility] Unhold - Provider: Admin Adt)2137 (Given - Provider: Lorena Torres RN) 1008 (Given - Provider: Heidy Paris, ERWIN) 1140 (Given - Provider: Heidy Paris, ERWIN) oxyCODONE-acetaminophen (Percocet) 5-325 mg per tablet 1 tablet 1 tablet, Oral, EVERY 6 HOURS PRN, Starting on Wed07/06/23 at 1020, Until Wed07/09/23 at 1844, Pain, for pain refractory to PRN acetaminophen, Maximum dose of acetaminophen is 4000 mg from all sources in 24 hours., Routine 1332 ([facility] Hold - Provider: Admin Adt - Reason: Transfer to a Procedural area)1548 ([facility] Unhold - Provider: Admin Adt)2137 (Given - Provider: Lorena Torres, ERWIN) 0855 (Given - Provider: Heidy Paris, ERWIN)2120 (Given - Provider: Machelle Busch RN) simethicone (Gas-X Chew) 80 mg chewable tablet 80 mg 80 mg, Oral, EVERY 6 HOURS PRN, Starting on Wed06/20/23 at 0941, Until Wed07/09/23 at 1844, Cramping, Routine 1332 ([facility] Hold - Provider: Admin Adt - Reason: Transfer to a Procedural area)1548 ([facility] Unhold - Provider: Admin Adt) 1344 (Given [...] provided on this medication record., Routine 1332 ([facility] Hold - Provider: Admin Adt - Reason: Transfer to a Procedural area)1548 ([facility] Unhold - Provider: Admin Adt) Linked Groups [...] Routine documented in this encounter Care Teams [id number] Tank Crewman Relationship Specialty Start Date End Date Polo Pearce PA [address] [place] [address] PCP - General Internal Medicine 06/09/21 documented as of this encounter
--- OUTSIDE RECORDS SUMMARY | 2023-09-20 18:34 | XMS_ITS | Encounter Summary ---
Author Organization [facility] Address [facility] [place] [address] Care Team Providers Care Circus Laborer Name Role Phone Polo Pearce Primary Care Provider [phone] Reason for Visit * Reason Comments Cardiomyopathy Encounter Details Date Type Department Care Team (Late st Contact Info) Description 05/10/2023 2:40 PM EST Office Visit Cardiology at [address] [place] [address] Jaspreet Kinsey MD [facility] [place] [address] Heart failure with preserved ejection fraction, unspecified HF chronicity (Primary Dx); SVT (supraventricular tachycardia) Social History Tobacco Use Types Packs/Day Years Used Date Smoking Tobacco: Never Smokeless Tobacco: Never Alcohol Use Standard Drinks/Week Comments Never 0 (1 standard drink = 0.6 oz pur e alcohol) [facility] Utilities Answer Date Recorded In the past 12 months has [employer] electric, gas, oil, or water company threatened [...] Oral, DAILY fluticasone propionate (FLONASE) 50 mcg/actuation [place], Suspension 1 spray, Each Nare, PRN gabapentin [...] preserved ejection fraction 05/2021: subacute, presented to [facility] with RUQ pain, weight gain, and [...] consider referral to the clare Mcdaniels of [facility] expertise IN the meantime, increase torsemide [...] AM EDT Tech [place] [address] Jose Cook 10/08/2023 9:30 AM EDT Office [place] [address] MD [facility] [place] [address] 10/21/2023 10:30 AM EDT Appointment [place] [phone] Mary Reyes [facility] [place] [address] 10/21/2023 11:30 AM EDT Appointment [place] [phone] Mary Reyes [facility] [place] [address] 10/21/2023 12:30 PM EDT Appointment [place] [phone] Mary Reyes [facility] [place] [address] 10/21/2023 1:30 PM EDT Appointment [place] [address] Mary Reyes PURCHASING BUYER [facility] [place] [address] 10/21/2023 2:30 PM EDT Appointment [place] [address] Mary Reyes [employer] [facility] [place] [address] 10/26/2023 4:00 PM EDT Office Visit Cardiology at [address] [phone] Jaspreet Kinsey MD [facility] [place] [address] 10/28/2023 9:00 AM EDT Office [place] [address] 10/29/2023 10:00 AM EDT Clinical [place] [address] 10/29/2023 10:15 AM EDT Procedure [place] [address] 11/01/2023 5:00 PM EDT Office [place] [address] Selene Browning, PhD [facility] [place] [address] 11/22/2023 4:40 PM EDT Office Visit Cardiology at [address] [address] Porsha Mcdaniels MD [facility] [place] [address] 12/13/2023 10:00 AM EDT Clinical Support Gastroenterology at [facility] [place] [address] [facility] [place] [address] documented as of this encounter Results * Streptococcal Antibody Panel (08/25/2023 11:28 AM EDT) [facility] ASO Titer 25 0 - 530 IU/mL [facility] Comment: Test Performed by: [place] [address] Wire Web Worker: Nellie Haney Ph.D.; CLIA# [id number] DNase B Ab 146 0 - 300 unit/mL [facility] Comment: Test Performed by: [place] [address] Wire Web Worker: Nellie Haney Ph.D.; CLIA# [id number] Blood 08/25/2023 11:2 8 AM EDT 08/25/2023 1:02 PM EDT Narrative Resulting Agency Comment Spec In Lab Jaspreet Kinsey MD IMMUNOLOGY ORDERABLE S [facility] [place] [address] * Lyme IgG & IgM Antibody (08/25/2023 11:28 AM EDT) [facility] Lyme Screening Antibody Negative Negative [facility] Lyme Ab Comment Negative result does not exclude possibility of infection. [facility] Comment: Please note that as of 07/14/2022 that this testing is performed by the Special Chemistry Laboratory at [facility]. This change in testing location is associated with a change in testing methodology. Blood 08/25/2023 11:2 8 AM EDT 08/26/2023 7:26 AM EDT Narrative Resulting Agency Comment Spec In Lab Jaspreet Kinsey MD IMMUNOLOGY ORDERABLE S Performing Organization Address [facility] Co de Phone Number [facility] [place] [address] * Ferritin (08/25/2023 11:28 AM EDT) Ferritin 110 11 - 328 ng/mL [facility] Comment: Please note that as of 02/10/2023, the reference intervals for Ferritin have been updated. Blood 08/25/2023 11:2 8 AM EDT 08/25/2023 11:37 AM EDT Narrative Resulting Agency Comment Spec In Lab Jaspreet Kinsey MD CHEMISTRY ORDERABLES Performing Organization Address [facility] Co de Phone Number [facility] [place] [address] * Iron and TIBC (08/25/2023 11:28 AM [...] Kinsey MD CHEMISTRY ORDERABLES Performing Organization Address [facility] Co de Phone Number [facility] [place] [address] * (ABNORMAL) Free Light Chains, Serum (08/25/2023 11:28 AM EDT) [place]erry Free Light Chain 3.09(H) 0.72 - 2.75 mg/dL [facility] Lambda Free Light Chain 1.65 0.57 - 2.15 mg/dL [facility] Derry Lambda FLC Ratio 1.8727 0.4000 - 2.5800 [facility] Blood 08/25/2023 11:2 8 AM EDT 08/25/2023 11:36 AM EDT Narrative Resulting Agency Comment Spec In Lab Jaspreet Kinsey MD CHEMISTRY ORDERABLES Performing Organization Address [facility] Co de Phone Number [facility] [place] [address] * (ABNORMAL) Protein Electrophoresis, serum (08/25/2023 11:28 AM EDT) Pathologist [facility] Total Prot Elec 7.5 6.1 - 8.0 [...] Kinsey MD CHEMISTRY ORDERABLES Performing Organization Address [facility]/ZIP Co de Phone Number [facility] [place] [address] * KATHRINE Antibody Screen (08/25/2023 11:28 AM EDT) Pathologist [facility] Antinuclear Ab Negative Negative [facility] Comment: This antinuclear antibody (KATHRINE) screen is a qualitative test performed using a fluoroenzyme immunoassay on the [employer] 250 analyzer. This screen is designed to [...] generated using a fluoroenzyme immunoassay on the Grup[employer]ediyea 250 analyzer. This quantitative test is designed to detect IgG antibodies directed against double stranded DNA in human serum. The presence of antibodies that recognize dsDNA is a highly specific marker for systemic lupus erythematosus. Please note that as of 12/30/2021 that this testing is performed by the Special Chemistry Laboratory at [facility]. This change in testing location is associated with a change is testing method and reference intervals. Please review the results of this test in association with the posted reference intervals. Blood 08/25/2023 11:2 8 AM EDT 08/26/2023 7:26 AM EDT Narrative Resulting Agency Comment Spec In Lab Jaspreet Kinsey MD IMMUNOLOGY ORDERABLE S [facility] [place] [phone] documented in this encounter Visit Diagnoses Diagnosis Heart failure with preserved ejection fraction, unspecified HF chronicity- Primary SVT (supraventricular tachycardia) Other specified cardiac dysrhythmias documented in this encounter Care Teams Circus Laborer Relationship Specialty Start Date End Date Polo Pearce PA [address] [place] [address] PCP - General Internal Medicine 06/09/21 documented as of this encounter
--- OUTSIDE RECORDS SUMMARY | 2023-09-20 18:34 | XMS_ITS | Encounter Summary ---
[place] [address] Care Team Providers Care Habilitation Specialist Name Role Phone Polo Pearce Primary Care Provider [phone] Encounter Details Date Type Department Care Team (Late st Contact Info) Description 06/14/2023 External [place] [phone] Social History Tobacco Use Types Packs/Day Years Used Date Smoking Tobacco: Never Smokeless Tobacco: Never Alcohol Use Standard Drinks/Week Comments Never 0 (1 standard drink = 0.6 oz pur e alcohol) [facility] Utilities Answer Date Recorded In the [...] a senior care (including now)? No 06/15/2023 IPV Inpatient Questions [...] AM EDT Tech Visit Vascular Lab at [place] [phone] Jose Cook 10/08/2023 9:30 AM EDT Office Visit Vascular Surgery at [place] [phone] [facility] [place] [address] 10/21/2023 10:30 AM EDT Appointment Nuclear Medicine at [place] [phone] [facility] [place] [address] 10/21/2023 11:30 AM EDT Appointment [place] [address] [facility] [place] [address] 10/21/2023 12:30 PM EDT Appointment [place] [address] Mary Reyes [facility] [place] [address] 10/21/2023 1:30 PM EDT Appointment [place] [address] Mary Reyes [facility] [place] [address] 10/21/2023 2:30 PM EDT Appointment [place] [address] Mary Reyes, [facility] [place] [address] 10/26/2023 4:00 PM EDT Office Visit Cardiology at [address] [phone] Jaspreet Kinsey MD [facility] [place] [address] 10/28/2023 9:00 AM EDT Office [place] [address] 10/29/2023 10:00 AM EDT Clinical Support [place] [address] 10/29/2023 10:15 AM EDT Procedure [place] [address] 11/01/2023 5:00 PM EDT Office Visit [place] [address] Selene Browning, PhD [facility] [place] [address] 11/22/2023 4:40 PM EDT Office Visit Cardiology at [address] [address] [facility] [place] [address] 12/13/2023 10:00 AM EDT Clinical Support [place] [address] Lucero Romero, [facility] [address] documented as of this encounter Procedures Procedure Name Priority Date/Time Associated Diagnosis Comments ECG SCAN Routine 06/14/2023 11:24 AM EDT documented in this encounter Results * Scan Doc: ECG (06/14/2023 11:24 AM EDT) Historical Provider MD FLEMING MGTalia SCAN EX T ORDR/RSLT documented in this encounter Visit Diagnoses Not on filedocumented in this encounter Care Teams Habilitation Specialist Relationship Specialty Start Date End Date Polo Pearce PA [address] [place] [address] PCP - General Internal Medicine 06/09/21 documented as of this encounter
--- OUTSIDE RECORDS SUMMARY | 2023-09-20 18:34 | XMS_ITS | Encounter Summary ---
[place] [address] Care Team Providers Care Junior Net Developer Name Role Phone Polo Pearce Primary Care Provider [phone] Reason for Referral * Diagnostic Test (Routine) - Authorized Specialty Diagnoses / Procedures Referred By Jayant harris Referred To Contact Diagnoses Mesenteric ischemia Procedures Duplex Study Visceral Arteries, Comp Mamie Marx APRN [facility] [place] [address] [facility] V[facility] Lab [address] [place] [phone] Referral ID Status Reason Start Date Expiration Date Visits Requested Visits Authorized [id number] Authorized Specialty Service Requested 06/28/2023 06/27/2024 1 1 Encounter Details Date Type Department Care Team (Late st Contact Info) Description 06/28/2023 Orders Only Vascular Surgery at [address] [address] Mamie Marx APRN [facility] [place] [address] Mesenteric ischemia Social History Tobacco [...] a nursing home (including now)? No 06/15/2023 IPV Inpatient [...] AM EDT Tech [place] [address] Jose Cook 10/08/2023 9:30 AM EDT Office Visit [place] [phone] MD [facility] [place] [address] 10/21/2023 10:30 AM EDT Appointment [place] [address] Mary Reyes, [facility] [place] [address] 10/21/2023 11:30 AM EDT Appointment [place] [address] Mary Reyes [facility] [place] [address] 10/21/2023 12:30 PM EDT Appointment [place] [address] Mary Reyes [facility] [place] [address] 10/21/2023 1:30 PM EDT Appointment [place] [address] Mary Reyes [facility] [place] [address] 10/21/2023 2:30 PM EDT Appointment [place] [address] Mary Reyes [facility] [place] [address] 10/26/2023 4:00 PM EDT Office Visit Cardiology at [address] [address] Jaspreet Kinsey MD [facility] [place] [address] 10/28/2023 9:00 AM EDT Office [place] [address] 10/29/2023 10:00 AM EDT Clinical Support [place] [address] 10/29/2023 10:15 AM EDT Procedure visit [place] [address] 11/01/2023 5:00 PM EDT Office Visit Gastroenterology at [place] [phone] Selene Browning, [facility] [place] [address] 11/22/2023 4:40 PM EDT Office Visit Cardiology at [place] [phone] Porsha Mcdaniels MD [facility] [place] [address] 12/13/2023 10:00 AM EDT Clinical Support Gastroenterology at [place] [phone] [facility] [place] [address] documented as of this encounter Results * Duplex Study Visceral Arteries, Comp (08/03/2023 8:36 AM EDT) VB Text Report Department: Vascular Surgery Lab Patient: [id number] (ROHAN, MELINDA) CPT: 62519 Referring Physician: MAMIE MARX ?? Phone: Indications: S/p SMA stenting (4/26) one month f/u, ? patency Findings: Unilateral ? Waveform ? PSV cm/s ??EDV cm/s ??Patent ?? Dary Visceral Aorta ? 71 ?14 ? Celiac Artery, Proximal ??Lenawee-Biphasic ? 100 ?22 ? Celiac Artery, Mid ? [place]e-Biphasic ?99 ?19 ? Celiac Artery, Distal ?[place]wee-Biphasic ?94 ?18 ? Sup Mes Artery Proximal [...] within mesenteric artery stents may differ from circle arteries, with thresholds for diagnosis of significant stenosis likely being somewhat higher in stented arteries than circle.% To date, there is no evidence based consensus of stent velocity criteria. Therefore, the current interpretation is based on circle artery thresholds. Previous Celiac/Mesenteric Studies: Date ? [...] intestine documented in this encounter Care Teams Junior Net Developer Relationship Specialty Start Date End Date Polo Pearce PA [address] [place] [address] PCP - General Internal Medicine 06/09/21 documented as of this encounter
--- OUTSIDE RECORDS SUMMARY | 2023-09-20 18:34 | XMS_ITS | Encounter Summary ---
Author Organization [facility] Address [facility] [place] [address] Care Team Providers Care Servicer Name Role Phone Polo Pearce Primary Care Provider [phone] Encounter Details Date Type Department Care Team (Latest Contact Info) Description 04/30/2023 Travel Social History Tobacco Use Types Packs/Day Years Used Date Smoking Tobacco: Never Smokeless Tobacco: Never Alcohol Use Standard Drinks/Week Comments Never 0 (1 standard drink = 0.6 oz pur e alcohol) [facility] Utilities Answer Date Recorded In the [...] slept in a snf (including now)? No 04/19/2023 [facility] Inpatient Questions Answer Date Recorded Does [...] AM EDT Tech [place] [address] Jose Cook 10/08/2023 9:30 AM EDT Office Visit [place] [address] MD [facility] [place] [address] 10/21/2023 10:30 AM EDT Appointment [place] [address] Mary Reyes [facility] [place] [address] 10/21/2023 11:30 AM EDT Appointment [place] [phone] Mary Reyes DEPUTY BAILIFF [facility] [address] 10/21/2023 12:30 PM EDT Appointment [place] [address] Mary Reyes, [facility] [place] [address] 10/21/2023 1:30 PM EDT Appointment [place] [address] Mary Reyes, [facility] [place] [address] 10/21/2023 2:30 PM EDT Appointment [place] [address] Mary Reyes, [facility] [place] [address] 10/26/2023 4:00 PM EDT Office Visit Cardiology at [address] [phone] Jaspreet Kinsey MD [facility] [place] [address] 10/28/2023 9:00 AM EDT Office Visit [place] [address] 10/29/2023 10:00 AM EDT Clinical Support [place] [address] 10/29/2023 10:15 AM EDT Procedure visit G[place] [address] 11/01/2023 5:00 PM EDT Office [place] [address] Selene Browning, PhD [facility] [place] [address] 11/22/2023 4:40 PM EDT Office Visit Cardiology at [address] [phone] Porsha Mcdaniels MD [facility] [place] [address] 12/13/2023 10:00 AM EDT Clinical Support [place] [phone] [facility] [place] [address] documented as of this encounter Visit Diagnoses Not on filedocumented in this encounter Care Teams Servicer Relationship Specialty Start Date End Date Polo Pearce PA [address] [place] [address] PCP - General Internal Medicine 06/09/21 documented as of this encounter
--- OUTSIDE RECORDS SUMMARY | 2023-09-20 18:34 | XMS_ITS | Encounter Summary ---
[place] [address] Care Team Providers Care Parole Director Name Role Phone Polo Pearce Primary Care Provider [phone] Reason for Visit * Diagnostic Test (Routine) - Closed Specialty Diagnoses / Procedures Referred By Jayant harris Referred To Contact Radiology Diagnoses Chest pain, unspecified type Procedures NM PET CT Cardiac Sarcoid Maegan Mike [facility] [place] [address] [place] [address] Referral ID Status Reason Start Date Expiration Date V isits Requested Visits Authorized [id number] Closed Specialty Service Requested 04/22/2023 10/20/2024 4 4 Encounter Details Date Type Department Care Team (Latest Contact Info) Description 04/30/2023 11:05 AM EST - 04/30/2023 11:59 PM [facility] Hospital Encounter [place] [address] Maegan Mike [facility] [place] [address] Discharge Disposition: Home Social History Tobacco Use Types Packs/Day Years Used Date Smoking Tobacco: Never Smokeless Tobacco: Never Alcohol Use Standard Drinks/Week Comments Never 0 (1 standard drink = 0.6 oz pur e alcohol) [facility] Utilities Answer Date Recorded In [...] nightly as needed. 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 90 tablet 1 06/11/2021 rOPINIRole (Requip) 1 mg Tablet Take 2 mg by mouth 2 times daily. 07/16/2020 loratadine (Claritin) 10 mg Tablet Take 10 mg by mouth daily as needed. fluticasone propionate (FLONASE) 50 mcg/actuation [place], Suspension 1 spray by Each Nare route [...] AM EDT Tech [place] [phone] Jose Cook 10/08/2023 9:30 AM EDT Office Visit Vascular Surgery at [place] [phone] MD [facility] [place] [address] 10/21/2023 10:30 AM EDT Appointment Nuclear Medicine at [address] Mary Reyes, [facility] [place] [address] 10/21/2023 11:30 AM EDT Appointment Nuclear Medicine at [address] Mary Reyes, [facility] [place] [address] 10/21/2023 12:30 PM EDT Appointment Nuclear Medicine at [place] [phone] Mary Reyes [facility] [place] [address] 10/21/2023 1:30 PM EDT Appointment Nuclear Medicine at [place] [phone] Mary Reyes [facility] [place] [address] 10/21/2023 2:30 PM EDT Appointment [place] [address] Mary Reyes [facility] [place] [address] 10/26/2023 4:00 PM EDT Office Visit Cardiology at [address] [phone] Jaspreet Kinsey MD [facility] [address] 10/28/2023 9:00 AM EDT Office Visit [place] [address] 10/29/2023 10:00 AM EDT Clinical Support [place] [address] 10/29/2023 10:15 AM EDT Procedure visit [place] [address] 11/01/2023 5:00 PM EDT Office [place] [phone] Selene Browning, PhD [facility] [place] [address] 11/22/2023 4:40 PM EDT Office Visit Cardiology at [address] [phone] Porsha Mcdaniels MD [facility] [place] [place] [address] 12/13/2023 10:00 AM EDT Clinical [place] [address] [facility] [place] [address] documented as of this encounter Procedures Procedure [...] have questions please contact the health care professionals that requested 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 ? 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 Following IV administration of 26.5 mCi technetium 99m sestamibi, SPECT-CT of the heart was obtained. Following IV injection of 8.8 mCi 21-mhuzdg-9-deoxyglucose (FDG) and a standard uptake of approximately [...] obtained. Following IV injection of 8.8 mCi 82-kdbdob-5-deoxyglucose (FDG) and astandard uptake of approximately 60 [...] who have questions please contactthe health care professionals that requested 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 Electronically signed by: Humberto Qureshi MD, [facility]([phone]), at 05/06/2023 11:09 AM Maegan Mike ATTENDING ANESTHESIOLOGIST IMG PET ORDERABLE S documented in this encounter Visit Diagnoses Not on filedocumented in this encounter Care Teams Parole Director Relationship Specialty Start Date End Date Polo Pearce PA [address] [place] [address] PCP - General Internal Medicine 06/09/21 documented as of this encounter
--- OUTSIDE RECORDS SUMMARY | 2023-09-20 18:34 | XMS_ITS | Encounter Summary ---
[place] [address] Care Team Providers Care Axminster Rug Setter Name Role Phone Polo Pearce Primary Care Provider [phone] Reason for Visit * Diagnostic Test (Routine) - Closed Specialty Diagnoses / Procedures Referred By Jayant harris Referred To Contact Radiology Diagnoses Chest pain, unspecified type Procedures NM PET CT Cardiac Sarcoid Maegan Mike [facility] [place] [address] [place] [address] Referral ID Status Reason Start Date Expiration Date V isits Requested Visits Authorized [id number] Closed Specialty Service Requested 04/22/2023 10/20/2024 4 4 Encounter Details Date Type Department Care Team (Latest Contact Info) Description 04/30/2023 11:02 AM EST - 04/30/2023 11:04 AM [facility] Hospital Encounter [place] [address] Maegan Mike [facility] [place] [address] Discharge Disposition: Home Social History Tobacco Use Types Packs/Day Years Used Date Smoking Tobacco: Never Smokeless Tobacco: Never Alcohol Use Standard Drinks/Week Comments Never 0 (1 standard drink = 0.6 oz pur e alcohol) [facility] Utilities Answer Date Recorded In the [...] slept in a long-term (including now)? No 04/19/2023 [facility] Inpatient [...] nightly as needed. 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 90 tablet 1 06/11/2021 rOPINIRole (Requip) 1 mg Tablet Take 2 mg by mouth 2 times daily. 07/16/2020 loratadine (Claritin) 10 mg Tablet Take 10 mg by mouth daily as needed. fluticasone propionate (FLONASE) 50 mcg/actuation [place], Suspension 1 spray by Each Nare route [...] AM EDT Tech Visit [place] [phone] Jose Cook 10/08/2023 9:30 AM EDT Office Visit Vascular Surgery at [place] [phone] MD [facility] [place] [address] 10/21/2023 10:30 AM EDT Appointment Nuclear Medicine at [address] Mary Reyes, [facility] [place] [address] 10/21/2023 11:30 AM EDT Appointment Nuclear Medicine at [address] Mary Reyes, [facility] [place] [address] 10/21/2023 12:30 PM EDT Appointment Nuclear Medicine at [place] [phone] Mary Reyes [facility] [place] [address] 10/21/2023 1:30 PM EDT Appointment Nuclear Medicine at [place] [phone] Mary Reyes [facility] [place] [address] 10/21/2023 2:30 PM EDT Appointment [place] [address] Mary Reyes [facility] [place] [address] 10/26/2023 4:00 PM EDT Office Visit Cardiology at [address] [phone] Jaspreet Kinsey MD [facility] [place] [address] 10/28/2023 9:00 AM EDT Office Visit [place] [address] 10/29/2023 10:00 AM EDT Clinical Support [place] [address] 10/29/2023 10:15 AM EDT Procedure visit [place] [address] 11/01/2023 5:00 PM EDT Office Visit [place] [phone] Selene Browning, PhD [facility] [place] [address] 11/22/2023 4:40 PM EDT Office Visit Cardiology at [address] [phone] Porsha Mcdaniels MD [facility] [place] [address] 12/13/2023 10:00 AM EDT Clinical Support [place] [address] [facility] [place] [address] documented as of this encounter Procedures Procedure [...] have questions please contact the health care team coordinator scheduler that requested 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 ? 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 Following IV administration of 26.5 mCi technetium 99m sestamibi, SPECT-CT of the heart was obtained. Following IV injection of 8.8 mCi 31-dyacpt-6-deoxyglucose (FDG) and a standard uptake of approximately [...] obtained. Following IV injection of 8.8 mCi 05-uhrvnp-5-deoxyglucose (FDG) and astandard uptake of approximately 60 [...] who have questions please contactthe health care team coordinator scheduler that requested 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 Maegan Mike PICKLING GRADER IMG PET ORDERABLE S documented in this encounter Visit Diagnoses Not on filedocumented in this encounter Care Teams Axminster Rug Setter Relationship Specialty Start Date End Date Polo Pearce PA [address] [place] [address] PCP - General Internal Medicine 06/09/21 documented as of this encounter
--- OUTSIDE RECORDS SUMMARY | 2023-09-20 18:34 | XMS_ITS | Encounter Summary ---
Author Organization [facility] [place] [address] Care Team Providers Care Store Stock Help Name Role Phone Polo Pearce Primary Care Provider [phone] Reason for Visit * Auth/Cert (Routine) Specialty Diagnoses / Procedures Referred By Jayant harris Referred To Contact Diagnoses NSTEMI (non-ST elevated myocardial infarction) NSTEMI Procedures ER Terrence Pantoja MD [facility] [place] [place] [address] [facility] Referral ID Status Reason Start Date Expiration Date Visits Re quested Visits Authorized [id number] 1 1 Encounter Details Date Type Department Care Team (Late st Contact Info) Description 07/07/2023 1:00 PM EDT - 07/07/2023 2:00 PM EDT Surgery Gastroenterology at [facility] [place] [address] Lashonda Villa MD [facility] [place] [address] EGD WITH BIOPSY (WRVU 2.39) Social History Tobacco Use Types Packs/Day Years Used Date Smoking Tobacco: Never Smokeless Tobacco: Never Alcohol Use Standard Drinks/Week Comments Never 0 (1 standard drink = 0.6 oz pur e alcohol) [facility] Utilities Answer Date Recorded In the past 12 months has th e electric, gas, oil, or water [employer] threatened to shut off services in [...] in a longterm (including now)? No 06/15/2023 DH IPV Inpatient [...] Loida Roque Patient Age: 53 y.o. Language: North [place] Race: White Ethnicity: Not nor Admit date: 06/14/2023 Discharge date and time: 07/09/2023 3:31 PM Attending Physician: Terrence Keating MD Discharge Physician: Terrence Keating MD Follow-up Recommendations for Providers: Inpatient Provider Contact Information: For questions regarding this document or issues relating to this hospitalization on the Medical Service, please contact your inpatient physician through the [facility] [place] . Issues afterhours and on weekends will [...] who have questions please contact the health manager medicare that requested 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 Electronically signed by: Wilton Cabrera MD, [facility] ([phone]), at 06/17/2023 5:[address] Abdomen & [...] who have questions please contact the health manager medicare that requested 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 Electronically signed by: RONDA DUFFY MD, [facility] ([phone]), at 06/22/2023 7:59 AM XR Chest One [...] who have questions please contact the health manager medicare that requested 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 Electronically signed by: Itz Hayward MD, [facility] ([phone]), at 06/22/2023 11:47 AM US Abdomen Limited (Exam End: 06/28/2023 12:22 PM) Result Value WORKSTATION ID [id number] Narrative Abdominal (Signed Final 06/28/2023 02:08 pm) PATIENT INFO: ID #: [id number] : [birth year] (53 yrs)(F) Name: LOIDA Visit Date: 06/28/2023 12:20 pm JUDE PERFORMED BY: Attending: Sigrid Owens MD Resident: Rafaela Huddleston MD Performed By: Deena Cabrera RDMS Referred By: AILYN IRVIN Location: [place] SERVICE(S) PROVIDED: UABDLIM - Abdominal Limited Survey Single 43180 Organ or Quadrant - [id number] INDICATIONS: RUQ pain, R/o Gall bladder colic, [...] PM Electronically signed by: Sigrid Owens MD, [facility] ([phone]), at 06/28/2023 2:02 PM Thank you for letting us participate in the care of this patient. If you are a health care provider and have any questions regarding this report, please contact the number above. For patients who have questions, please contact the health manager medicare that requested 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 Sigrid Owens, [employer] Station Supervisor Electronically Signed Final Report 06/28/2023 02:08 pm [...] anesthetic: 10 cc 1% lidocaine Heparin: Yes 58174 Units Protamine: No mg Antibiotics: Ancef Fluoro [...] We exchanged the sheath for a 7 Hebrew sea kayaking guide steerable sheath over a stiff wire. A Glidewire and Kumpe catheter were used to selectively cannulate the superior mesenteric artery. Direct angiography of the superior mesenteric artery was performed, confirming the results of the nonselective aortography performed. The lesion was predilated with a 4 mm x 40 mm Alstead balloon, and then a 6 mm X [...] 07/03/2023 3:18 PM) Result Value WORKSTATION ID [id number] Narrative EXAMINATION: XR CHEST ONE VIEW CLINICAL [...] who have questions please contact the health manager medicare that requested 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 Electronically signed by: Itz Hayward MD, [facility] ([phone]), at 07/03/2023 3:27 PM Echocardiogram from 06/22/2023 [...] pain. The patient was recently admitted at [facility] from 04/16/23 to 04/19/2023 as a transfer from [facility] due to exertional chest pressure and [...] etiology, patient was accepted for transfer to [facility]. Brief Summary: Loida Roque is a 53 [...] with positive cardiac markers. Patient transferred to [facility] for further work-up and evaluation. On arrival, [...] Administered Date(s) Administered Moderna Covid-19 Monovalent 12Yr+ (Mill Operator Helper 100mcg) 03/06/2020, 04/03/2020 Discharge Medications: Your Medications [...] weight gain + increasing shortness of breath. [id number] minutes prior to a dose of torsemide). [...] appointments: During 8am-5pm Wednesday through Wednesday call [phone] to speak with a nurse in the cardiology clinic All other times call [phone] and ask to speak to the internist carton making machinist. Return to work: One week Driving: No driving for 48 hours after catheterization. Follow up Appointments: PCP JOCY Franco [phone] 11:30am on July 19. Cardiology office will call you regarding your appointment with Dr. Kinsey. General Instructions None Future Appointments and Orders Future Appointments and Orders Future Appointments Provider Department Dept Phone 07/26/2023 3:20 PM Jaspreet Kinsey MD Cardiology at [facility] at: [facility] [address] [phone] 07/29/2023 8:00 AM Porsha Mcdaniels MD Cardiology at [facility] Arrive at: [facility] [phone] 08/03/2023 8:30 AM Eladio Boyer Vascular Lab at [facility] Arrive at: [facility] [phone] 08/03/2023 9:30 AM Judith Butler APRN Vascular Surgery at [facility] Arrive at: [facility] [phone] 09/02/2023 2:40 PM Jaspreet Kinsey MD Cardiology at [facility] at: [facility] [address] [phone] Discharge References/Attachments None Greater than 30 minutes was spent on this discharge including documentation, [id number] time withthe patient, patient education, border measurer, coordination with pharmacy and other patient care. [...] appointments: During 8am-5pm Wednesday through Wednesday call [phone] to speak with a nurse in the cardiology clinic All other times call [phone] and ask to speak to the internist carton making machinist. Return to work: One week Driving: No driving for 48 hours after catheterization. Follow up Appointments: PCP JOCY Franco [phone] 11:30am on July 19. Cardiology office will [...] as needed. fluticasone propionate (FLONASE) 50 mcg/actuation [place], Suspension 1 spray by Each Nare route [...] 4pm, per the team. Please refer to: [place] [address] [place] [address] PHONE: [phone] FAX: [phone] *For RN RICARDO: 07/09/23 Nani Mendoza MSN-Ed, RN ACM Cardiac Research Nurse and Neuro/Neurocrit/ENT Grades 9 Thru 12 Visiting Teacher. * Mary Castaneda RCP - 07/09/2023 4:37 [...] 1:00 PM EDT [facility] H[facility]PITALIST 2 - [facility] DAILY PROGRESS NOTE Page [phone] to reach a provider 28/09 Admit Date: [...] with positive cardiac markers. Patient transferred to [facility] for further work-up and evaluation. Presented with [...] prn. Diet: Daily Healthy Menu Choices/Cardiac diet ([facility]-Diet) DVT Prophylaxis: DOAC heparin gtt. 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 Social Determinants of Health Financial Resource [...] Lashonda Villa MD Gastroenterology and hepatology Pager: [phone] * Patricia Rosas RCP - 07/08/2023 4:10 [...] 9:00 AM EDT [facility] H[facility]PITALIST 2 - [facility] DAILY PROGRESS NOTE Page [phone] to reach a provider 28/09 Admit Date: [...] with positive cardiac markers. Patient transferred to [facility] for further work-up and evaluation. Presented with [...] Score: 24 PT: OT: PCP JOCY Franco [phone] Terrence Keating MD 07/07/2023 * Terrence Keating MD - 07/06/2023 11:00 AM EDT [facility] HOSPITALIST 2 - [facility] DAILY PROGRESS NOTE Page [phone] to reach a provider 28/09 Admit Date: [...] with positive cardiac markers. Patient transferred to [facility] for further work-up and evaluation. Presented with [...] hospital Diet: Daily Healthy Menu Choices/Cardiac diet ([facility]-Diet) NPO diet (Give Meds) DVT Prophylaxis: DOAC Code status: Attempt Cardiopulmonary Resuscitation - Inpatient Disposition: Discharge Location: AM-[facility] Basic Mobility Raw Score: 24 PT: OT: PCP JOCY Franco [phone] Terrence Keating MD 07/06/2023 * Ana Paula [...] 11:00 AM EDT CV HOSPITALIST 2 - [facility] DAILY PROGRESS NOTE Page [phone] to reach a provider 28/09 Admit Date: [...] with positive cardiac markers. Patient transferred to [facility] for further work-up and evaluation. Presented with [...] hospital Diet: Daily Healthy Menu Choices/Cardiac diet ([facility]-Diet) DVT Prophylaxis: DOAC Code status: Attempt Cardiopulmonary Resuscitation - Inpatient Disposition: Discharge Location: AM-PAC Basic Mobility Raw Score: 24 PT: OT: PCP JOCY Franco [phone] Terrence Keating MD 07/05/2023 * Lino Calles MD - 07/04/2023 9:09 AM EDT [facility] H[facility]PITALIST 2 - [facility] DAILY PROGRESS NOTE Page [phone] to reach a provider 28/09 Admit Date: [...] and SVT ablation on 04/01/[address] Tvoar, paroxysmal A-fib (diagnosed on 10/20/2022), HFpEF, pulmonary emboli on Eliquis, and restrictive lung disease secondary to obesity who presented to OSH with chest pain . Patient has recently undergone extensive workup for ACS that has been unrevealing. 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 The patient current presentation is different with positive cardiac markers. Patient transferred to [facility] for further work-up and evaluation. On arrival, [...] migraine Diet: Daily Healthy Menu Choices/Cardiac diet ([facility]-Diet) DVT Prophylaxis: DOAC Code status: Attempt Cardiopulmonary Resuscitation - Inpatient Disposition: Discharge Location: AM-PAC Basic Mobility Raw Score: 24 PT: OT: PCP JOCY Franco [phone] Lino Calles MD 07/04/2023 * Ana Paula [...] 8:59 AM EDT [facility] H[facility]PITALIST 2 - [facility] DAILY PROGRESS NOTE Page [phone] to reach a provider 28/09 Admit Date: [...] with positive cardiac markers. Patient transferred to [facility] for further work-up and evaluation. On arrival, [...] PRN Diet: Daily Healthy Menu Choices/Cardiac diet ([facility]-Diet) DVT Prophylaxis: DOAC Code status: Attempt Cardiopulmonary Resuscitation - Inpatient Disposition: Discharge Location: AM-PAC Basic Mobility Raw Score: 24 PT: OT: PCP JOCY Franco [phone] Lino Calles MD 07/03/2023 * Van Muse [...] 9:55 AM EDT [facility] H[facility]PITALIST 2 - [facility] DAILY PROGRESS NOTE Page [phone] to reach a provider 28/09 Admit Date: [...] with positive cardiac markers. Patient transferred to [facility] for further work-up and evaluation. On arrival, [...] PRN Diet: Daily Healthy Menu Choices/Cardiac diet ([facility]-Diet) DVT Prophylaxis: DOAC Code status: Attempt Cardiopulmonary Resuscitation - Inpatient Disposition: Discharge Location: AM-PAC Basic Mobility Raw Score: 24 PT: OT: PCP JOCY Franco [phone] Lino Calles MD 07/02/2023 * Jaspreet Griffith [facility] - 07/02/2023 6:35 AM EDT Respiratory Care [...] 7:39 AM EDT CV HOSPITALIST 2 - [facility] DAILY PROGRESS NOTE Page [phone] to reach a provider 28/09 Admit Date: [...] with positive cardiac markers. Patient transferred to [facility] for further work-up and evaluation. On arrival, [...] PRN Diet: Daily Healthy Menu Choices/Cardiac diet ([facility]-Diet) NPO diet (Give Meds) DVT Prophylaxis: DOAC Code status: Attempt Cardiopulmonary Resuscitation - Inpatient Disposition: Discharge Location: AM-[facility] Basic Mobility Raw Score: 24 PT: OT: PCP JOCY Franco [phone] Terrence Keating MD 07/01/2023 * Terrence Keating MD - 06/30/2023 8:00 AM EDT CV H[facility]PITALIST 2 - [facility] DAILY PROGRESS NOTE Page [phone] to [...] with positive cardiac markers. Patient transferred to [facility] for further work-up and evaluation. On arrival, [...] Cardiopulmonary Resuscitation - Inpatient Disposition: Discharge Location: AM-[facility] Basic Mobility Raw Score: 24 PT: OT: PCP JOCY Franco [phone] Terrence Keating MD 06/30/2023 * Terrence Keating MD - 06/29/2023 4:29 PM EDT CV HOSPITALIST 2 - [facility] DAILY PROGRESS NOTE Page [phone] to reach a provider 28/09 Admit Date: [...] with positive cardiac markers. Patient transferred to [facility] for further work-up and evaluation. On arrival, [...] Score: 24 PT: OT: PCP JOCY Franco [phone] Terrence Keating MD 06/29/2023 * Jo Ann Sharpe - 06/29/2023 2:54 PM EDT Nutrition Services Note - Low Nutrition Acuity Loida Roque is a 53 y.o. female Reason for intervention: follow up Nutrition Plan: Continue current diet. Encourage good PO intake. Spironolactone noted. Abdominal pain after eating noted. Encouragement and support provided. Pt screened for follow-up visit and communications writer met with Pt at bedside. Pt [...] consulted in the interim. Jo Ann Sharpe Reach Truck Operator * Mary Castaneda RCP - 06/29/2023 3:55 [...] 1:53 PM EDT CV H[facility]PITALIST 2 - [facility] DAILY PROGRESS NOTE Page [phone] to reach a provider 28/09 Admit Date: [...] with positive cardiac markers. Patient transferred to [facility] for further work-up and evaluation. On arrival, [...] Score: 24 PT: OT: PCP JOCY Franco [phone] * Ailyn Irvin MD - 06/27/2023 9:40 AM EDT CV HOSPITALIST 2 - [facility] DAILY PROGRESS NOTE Page [phone] to reach a provider 28/09 Admit Date: [...] with positive cardiac markers. Patient transferred to [facility] for further work-up and evaluation. On arrival, [...] Score: 24 PT: OT: PCP JOCY Franco [phone] * Ailyn Irvin MD - 06/26/2023 12:42 PM EDT CV HOSPITALIST 2 - [facility] DAILY PROGRESS NOTE Page [phone] to reach a provider 28/09 Admit Date: [...] with positive cardiac markers. Patient transferred to [facility] for further work-up and evaluation. On arrival, [...] Score: 24 PT: OT: PCP JOCY Franco [phone] * Mitali Manuel RCP - 06/26/2023 5:43 [...] 1:39 PM EDT CV H[facility]PITALIST 2 - [facility] DAILY PROGRESS NOTE Page [phone] to reach a provider 28/09 Admit Date: [...] with positive cardiac markers. Patient transferred to [facility] for further work-up and evaluation. On arrival, [...] Score: 24 PT: OT: PCP JOCY Franco [phone] * Edith Chandler RCP - 06/24/2023 10:40 [...] 4:38 PM EDT CV HOSPITALIST 2 - [facility] DAILY PROGRESS NOTE Page [phone] to reach a provider 28/09 Admit Date: [...] with positive cardiac markers. Patient transferred to [facility] for further work-up and evaluation. On arrival, [...] 24 PT: OT: PCP Polo Ramses, [place] [phone] * Aaron Rosado RCP - 06/24/2023 1:55 [...] 1:03 PM EDT CV HOSPITALIST 2 - [facility] DAILY PROGRESS NOTE Page [phone] to reach a provider 28/09 Admit Date: [...] with positive cardiac markers. Patient transferred to [facility] for further work-up and evaluation. On arrival, [...] Score: 24 PT: OT: PCP JOCY Franco [phone] * Ciera Valdovinos RD - 06/22/2023 2:38 PM EDT Nutrition Services Note - Low Nutrition Acuity Loida Roque is a 53 y.o. female Reason for intervention: hospital day 9 Nutrition Plan: Cardiac Diet Record % PO intake Monitor weight - diuresis noted Patient screened for hospital length of stay nutrition visit, communications writer met with Loida at bedside. Loida reports excellent appetite, eating 100% of meals. She notes that she has not skipped any meals inpatient and has no current nutrition related questions. She notes UBW 217-218 lbs and says that current weight is higher than normal for her. Diuresis noted. Active Orders Diet Daily Healthy Menu Choices/Cardiac diet ([facility]-Diet) Frequency: Effective Now Number of Occurrences: Until [...] 1:35 PM EDT CV HOSPITALIST 2 - [facility] DAILY PROGRESS NOTE Page [phone] to reach a provider 28/09 Admit Date: [...] who have questions please contact the health manager medicare that requested 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 Electronically signed by: RONDA DUFFY MD, [facility] ([phone]), at 06/22/2023 7:59 AM XR Chest One View (Exam End: 06/22/2023 11:42 AM) Impression No acute pulmonary findings Thank you for letting us participate in the care of this patient. If you are a health care provider and have any questions regarding this report, please contact the number below. For patients who have questions please contact the health manager medicare that requested 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 Electronically signed by: Itz Hayward MD, [facility] ([phone]), at 06/22/2023 11:47 AM Assessment: Loida Roque [...] with positive cardiac markers. Patient transferred to [facility] for further work-up and evaluation. On arrival, [...] above Diet: Daily Healthy Menu Choices/Cardiac diet ([facility]-Diet) DVT Prophlaxis: eliquis Code status: Attempt Cardiopulmonary Resuscitation - Inpatient Disposition: Discharge Planning: AM-PAC Basic Mobility Raw Score: 24 PT: OT: PCP JOCY Frnaco [phone] * Eufemia Copeland MD - 06/21/2023 11:02 AM EDT CV HOSPITALIST 2 - [facility] DAILY PROGRESS NOTE Page [phone] to reach a provider 28/09 Admit Date: [...] with positive cardiac markers. Patient transferred to [facility] for further work-up and evaluation. On arrival, [...] above Diet: Daily Healthy Menu Choices/Cardiac diet ([facility]-Diet) DVT Prophlaxis: eliquis Code status: Attempt Cardiopulmonary Resuscitation - Inpatient Disposition: Discharge Planning: AM-PAC Basic Mobility Raw Score: 24 PT: OT: PCP JOCY Franco [phone] * Eufemia Copeland MD - 06/20/2023 8:06 AM EDT CV HOSPITALIST 2 - [facility] DAILY PROGRESS NOTE Page [phone] to reach a provider 28/09 Admit Date: [...] with positive cardiac markers. Patient transferred to [facility] for further work-up and evaluation. On arrival, [...] Restart eliquis 06/15. #Migraines - [facility] - migraine cocktail PRN Fluids: per migraine cocktail Electrolytes: replete as above Diet: Daily Healthy Menu Choices/Cardiac diet ([facility]-Diet) DVT Prophlaxis: eliquis Code status: Attempt Cardiopulmonary Resuscitation - Inpatient Disposition: Discharge Planning: AM-PAC Basic Mobility Raw Score: 24 PT: OT: PCP JOCY Franco [phone] * Eufemia Copeland MD - 06/19/2023 10:00 AM EDT CV HOSPITALIST 2 - [facility] DAILY PROGRESS NOTE Page [phone] to reach a provider 28/09 Admit Date: [...] Continuous Infusions: lactated Ringers 250 mL (06/17/23 4836) PRN Meds:.loratadine, sodium chloride 0.9 % (flush), [...] with positive cardiac markers. Patient transferred to [facility] for further work-up and evaluation. On arrival, [...] above Diet: Daily Healthy Menu Choices/Cardiac diet ([facility]-Diet) DVT Prophlaxis: eliquis Code status: Attempt Cardiopulmonary Resuscitation - Inpatient Disposition: Discharge Planning: AM-PAC Basic Mobility Raw Score: 24 PT: OT: PCP JOCY Franco [phone] * Eufemia Copeland MD - 06/18/2023 9:02 AM EDT CV HOSPITALIST 2 - [facility] DAILY PROGRESS NOTE Page [phone] to reach a provider 28/09 Admit Date: [...] with positive cardiac markers. Patient transferred to [facility] for further work-up and evaluation. On arrival, [...] above Diet: Daily Healthy Menu Choices/Cardiac diet ([facility]-Diet) DVT Prophlaxis: eliquis Code status: Attempt Cardiopulmonary Resuscitation - Inpatient Disposition: Discharge Planning: AM-PAC Basic Mobility Raw Score: 24 PT: OT: PCP JOCY Franco [phone] * Eufemia Copeland MD - 06/17/2023 12:02 PM EDT CV HOSPITALIST 2 - [facility] DAILY PROGRESS NOTE Page [phone] to reach a provider 28/09 Admit Date: [...] with positive cardiac markers. Patient transferred to [facility] for further work-up and evaluation. On arrival, [...] above Diet: Daily Healthy Menu Choices/Cardiac diet ([facility]-Diet) DVT Prophlaxis: eliquis Code status: Attempt Cardiopulmonary Resuscitation - Inpatient Disposition: Discharge Planning: AM-PAC Basic Mobility Raw Score: 24 PT: OT: PCP JOCY Franco [phone] * Calista Hernandez, RT - 06/17/2023 4:36 [...] 3:25 PM EDT CV HOSPITALIST 2 - [facility] DAILY PROGRESS NOTE Page [phone] to reach a provider 28/09 Admit Date: [...] with positive cardiac markers. Patient transferred to [facility] for further work-up and evaluation. On arrival, [...] above Diet: Daily Healthy Menu Choices/Cardiac diet ([facility]-Diet) DVT Prophlaxis: eliquis Code status: Attempt Cardiopulmonary Resuscitation - Inpatient Disposition: Discharge Planning: AM-PAC Basic Mobility Raw Score: 24 PT: OT: PCP JOCY Franco [phone] documented in this encounter H&P Notes * [...] pain. The patient was recently admitted at [facility] from 04/16/23 to 04/19/2023 as a transfer from [facility] due to exertional chest pressure and [...] etiology, patient was accepted for transfer to [facility]. 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 Social Determinants of Health Financial Resource [...] as needed. fluticasone propionate (FLONASE) 50 mcg/actuation [place], Suspension 1 spray by Each Nare route [...] if hypotensive / cardiogenic shock / inferior DE / sildenafil within past 24 hours) - [...] for discharge to home with family support, [facility] for RN and OP Cardi clinic for f/u. Needs for Transition of Care: Plan for discharge is: Home w/ Services Outpatient Agency/Support Group Needs: None Home Health Services: Registered Nurse Agency Referrals & Follow-up Care: Contact information for follow-up Home Health & Hospice, [place] [address] [place] [address] Transportation: taxi voucher -Ride confirmed entrance #2 [...] other (see comments) (Has CPAP provided through [facility]) DME Needed at Discharge: none Patient is insured through: Primary Insurance: [employer] [place] Payor[place] [employer] [place] / Plan[place] / Product Type: *No Product type* / Secondary Insurance: N/A Prescription Coverage: Yes This plan was formulated with input from patient, (please identify family/friend involved if applicable) and team. All are in agreement with plan. Nani Mendoza MSN-Ed, RN ACM Cardiac Research Nurse and Neuro/Neurocrit/ENT Grades 9 Thru 12 Visiting Teacher. * Care Management - Dixie Patterson - 07/09/2023 1:38 PM EDT Transportation for discharge was scheduled and confirmed through [employer]. [employer] will have a test car driver here at entrance #2 @4pm to [...] Visceral Aorta 80 16 Celiac Artery, Proximal [place] 119 26 Celiac Artery, Mid [place] 115 21 Celiac Artery, Distal No Vis Sup Mes Artery Proximal [place] 427 91 Sup Mes Artery Middle [place] 100 17 Sup Mes Artery Distal [place] 64 15 Hepatic Artery No Vis Splenic [...] sign off at this time, please page [phone] with any questions or concerns. Discussed with [...] Visceral Aorta 80 16 Celiac Artery, Proximal [place] 119 26 Celiac Artery, Mid [place] 115 21 Celiac Artery, Distal No Vis Sup Mes Artery Proximal [place] 427 91 Sup Mes Artery Middle [place] 100 17 Sup Mes Artery Distal [place] 64 15 Hepatic Artery No Vis Splenic [...] duplex Discussed with Dr. Kamara. Please page [phone] with any questions or concerns. 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 Social Determinants of Health Financial Resource [...] NPO other than prep/meds with sips. At [place], patient should be strict NPO. The plan as outlined above was discussed with Dr. Villa. Recommendations were discussed with primary team. Sis Keenan M.D. Fellow in Gastroenterology and Hepatology Pager #[phone] 07/06/2023 Associated attestation - Lashonda Villa MD [...] Lashonda Villa MD Gastroenterology and hepatology Pager: [phone] * Plan of Care - Olive Hernandez [...] Visceral Aorta 80 16 Celiac Artery, Proximal [place] 119 26 Celiac Artery, Mid [place] 115 21 Celiac Artery, Distal No Vis Sup Mes Artery Proximal [place] 427 91 Sup Mes Artery Middle [place] 100 17 Sup Mes Artery Distal [place] 64 15 Hepatic Artery No Vis Splenic [...] duplex Discussed with Dr. Kamara. Please page [phone] with any questions or concerns. Gauri Vega [...] Visceral Aorta 80 16 Celiac Artery, Proximal [place] 119 26 Celiac Artery, Mid [place] 115 21 Celiac Artery, Distal No Vis Sup Mes Artery Proximal [place] 427 91 Sup Mes Artery Middle [place] 100 17 Sup Mes Artery Distal [place] 64 15 Hepatic Artery No Vis Splenic [...] ASA) Discussed with Dr. Kamara. Please page [phone] with any questions or concerns. Gauri Vega [...] Visceral Aorta 80 16 Celiac Artery, Proximal [place] 119 26 Celiac Artery, Mid [place] 115 21 Celiac Artery, Distal No Vis Sup Mes Artery Proximal [place] 427 91 Sup Mes Artery Middle [place] 100 17 Sup Mes Artery Distal [place] 64 15 Hepatic Artery No Vis Splenic [...] 07/02/[address] Kamara. Please page [phone] with any questions or concerns. Gauri Vega [...] Visceral Aorta 80 16 Celiac Artery, Proximal [place] 119 26 Celiac Artery, Mid [place] 115 21 Celiac Artery, Distal No Vis Sup Mes Artery Proximal [place] 427 91 Sup Mes Artery Middle [place] 100 17 Sup Mes Artery Distal [place] 64 15 Hepatic Artery No Vis Splenic [...] tonight Discussed with Dr. Kamara. Please page [phone] with any questions or concerns. Gauri Vega [...] Visceral Aorta 80 16 Celiac Artery, Proximal [place] 119 26 Celiac Artery, Mid [place] 115 21 Celiac Artery, Distal No Vis Sup Mes Artery Proximal [place] 427 91 Sup Mes Artery Middle [place] 100 17 Sup Mes Artery Distal [place] 64 15 Hepatic Artery No Vis Splenic [...] Visceral Aorta 80 16 Celiac Artery, Proximal [place] 119 26 Celiac Artery, Mid [place] 115 21 Celiac Artery, Distal No Vis Sup Mes Artery Proximal [place] 427 91 Sup Mes Artery Middle [place] 100 17 Sup Mes Artery Distal [place] 64 15 Hepatic Artery No Vis Splenic [...] Dominguez PA - 06/28/2023 8:52 AM EDT [facility] Department of Cardiology Consult Progress Note Reason [...] consultation required. SUHA LangstonC Cardiovascular Medicine Pager [phone] 06/28/2023 Associated attestation - Klarissa Henderson MD [...] Implemented as Appropriate) * Consult Note - Hernietta Judge MD - 06/25/2023 4:16 PM EDT [...] Tellez MD - 06/24/2023 2:14 PM EDT [facility] Department of Cardiology Consult Progress Note Reason [...] if further consultation required. 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 Social Determinants of Health Financial Resource [...] as needed. fluticasone propionate (FLONASE) 50 mcg/actuation [place], Suspension 1 spray by Each Nare route [...] other (see comments) (Has CPAP provided through [employer]) DME Needed at Discharge: No Patient is insured through: Primary Insurance: [employer] [place] [employer] [place] / [place] / [...] Anticipated Date of Discharge: 06/23/2023 [place] weight trainer Pgr: [phone] * Plan of Care - [...] other (see comments) (Has CPAP provided through [employer]) DME Needed at Discharge: No Patient is insured through: Primary Insurance: [employer] [place] [employer] [place] / Plan: [facility] [place] / Product Type: *No Product [...] careas indicated. Anticipated Date of Discharge: 06/19/2023 BAE Killian, RN Inpatient Irrigationist Designer- Cardiology Office of Care Management Pager #: [phone] * Plan of Care - Olive Hernandez, [...] COVID test: Lab Results Component Value Date [id number] Not Detected 06/13/2021 Past medical History: Past [...] In the past 12 months has the [employer], gas, oil, or water [employer] threatened to shut off services in [...] other (see comments) (Has CPAP provided through [facility]) Home Address confirmed as: [address] [place] [address] Social & Family Supports: All names listed [...] Specific Information: Has a CPAP provided by [employer]/Prescription Coverage: Primary Insurance: [employer] [place] Payor: [employer] [place] / Plan[place] [employer] [place] / Product Type: *No Product type* / Secondary Insurance: N/A ; Prescription Coverage: Yes Preferred Pharmacy: [facility] [address] [place] [address] [place] [address] [place], [place] - [address] [facility] [address] [place] [address] [facility] [address] Status: Patient is a : No Primary Care Provider confirmed: JOCY Franco [phone] Patient/Caregiver Goals of Treatment: To figure out what is wrong Potential Needs for Transition of Care: other (see comments) ([facility] help) Agency Referrals: Not Applicable Transportation: no concerns Transportation Anticipated: agency ( can not drive , mother does not drive , Son does not have a car) Concerns to be Addressed: discharge planning Assessment: Patient is admitted to [facility] service for Chest pain Plan: May [...] planning. Office of Care Management Float / multimedia developer weight trainer [email or web address] Pager #[phone] * Consult Note - Jackie Batres MD - 06/15/2023 11:04 AM EDT [facility] Department of Cardiology Initial Consult Note Patient: [...] her case. She has not had recent shell worker monitoring for arrhythmia, though unlikely, is possible [...] AM EDT Tech [place] [phone] Jose Cook 10/08/2023 9:30 AM EDT Office [place] [phone] MD [facility] [place] [address] 10/21/2023 10:30 AM EDT Appointment [place] [phone] Mary Reyes, ROM [facility] [place] [address] 10/21/2023 11:30 AM EDT Appointment Nuclear Medicine at [place] [phone] Mary Reyes, [facility] [place] [address] 10/21/2023 12:30 PM EDT Appointment [place] [address] Mary Reyes [facility] [place] [address] 10/21/2023 1:30 PM EDT Appointment [place] [address] Mary Reyes, [facility] [place] [address] 10/21/2023 2:30 PM EDT Appointment [place] [address] Mary Reyes [facility] [place] [address] 10/26/2023 4:00 PM EDT Office Visit Cardiology at [address] [place] [phone] Jaspreet Kinsey MD [facility] [place] [address] 10/28/2023 9:00 AM EDT Office [place] [address] 10/29/2023 10:00 AM EDT Clinical [place] [address] 10/29/2023 10:15 AM EDT Procedure [place] [address] 11/01/2023 5:00 PM EDT Office [place] [address] Selene Browning, PhD [facility] [place] [address] 11/22/2023 4:40 PM EDT Office Visit Cardiology at [address] [address] Porsha Mcdaniels MD [facility] [place] [address] 12/13/2023 10:00 AM EDT Clinical [place] [address] [facility] [place] [address] Scheduled Orders Name Type Priority Associated Diagnoses [...] Routine 07/07/2023 2:25 PM EDT Colonoscopy, Biopsy ([id number]) 07/07/2023 2:10 PM EDT post prandial pain Upper Gi Endoscopy, Biopsy ([id number]) 07/07/2023 2:10 PM EDT post prandial pain [...] Glucose Lvl 111 65 - 199 mg/dL [facility] Comment:Diabetes: >=200 mg/d L plus symptoms BUN 29(H) 8 - 18 mg/dL [facility] Creatinine 1.41(H) 0.70 - 1.20 mg/dL [facility] Sodium 140 135 - 145 mmol/L [facility] Potassium 3.6 3.5 - 5.0 mmol/L [facility] Comment: Please note: ??Patients with WBC >100,000 may have falsely elevated Potassium levels. ??For accurate Potassium quantification in these patients send serum separator tube (gold top) for subsequent determinations. ??Contact the Clinical Chemistry Laboratory if there are any questions. Chloride 99 98 - 107 mmol/L [facility] CO2 29 22 - 31 mmol/L [facility] Anion Gap 12 5 - 15 mmol/L [facility] Calcium 10.0 8.5 - 10.5 mg/dL [facility] Estimated GFR 44(L) >=60 mL/min/1. 73 m?? [facility] Comment: This patient's estimated [...] In Lab Terrence Keating MD CHEMISTRY ORDERABLES [facility] [place] [address] * Differential, Automated (07/09/2023 3:03 AM EDT) Neutrophils % 51.4 % [facility] Neutr Abs (ANC) 3.43 1.70 - 6.10 x10(3)/[facility] Lymphocytes % 31.4 % [facility] Lymphocytes Abs 2.1 0.9 - 3.2 x10(3)/[facility] Monocytes % 10.1 % [facility] Monocyte Abs 0.7 0.3 - 0.9 x10(3)/[facility] Eosinophils % 6.0 % [facility] Eosinophils Abs 0.4 0.0 - 0.4 x10(3)/[facility] Basophils % 0.8 % [facility] Basophils Abs 0.0 0.0 - 0.1 x10(3)/[facility] Immature Gran % 0.30 % [facility] Comment: Immature granulocytes(IG's)percentage and absolute count will include metamyelocytes, myelocytes, and promyelocytes. Blood smears from CBCs yielding IG's will be scanned manually for concordance. If this scan disagrees with the automated IG or if promyelocytes are noted, a manual differential will be performed. Shonda Gran Abs 0.02 0.00 - 0.04 x10(3)/[facility] Blood 07/09/2023 3:03 AM EDT 07/09/2023 3:14 AM EDT Narrative Resulting Agency Comment Spec In Lab Terrence Keating MD HEMATOLOGY ORDERABLE S [facility] [place] [address] * (ABNORMAL) Hemogram (07/09/2023 3:03 AM EDT) WBC 6.7 4.0 - 9.5 x10(3)/[facility] RBC 3.87(L) 4.00 - 5.21 x10(6)/[facility] Hemoglobin 12.4 11.7 - 15.5 g/dL [facility] Hematocrit 36.8 35.7 - 45.8 % [facility] MCV 95.1(H) 82.6 - 94.4 fL [facility] MCH 32.0 27.1 - 32.0 pg [facility] MCHC 33.7 31.7 - 35.0 g/dL [facility] Platelets 209 145 - 357 x10(3)/[facility] RDWSD 47.9(H) 37.0 - 46.0 fL [facility] RDWCV 13.7 11.5 - 14.1 % [facility] MPV 10.5 7.6 - 12.9 fL [facility] nRBC % Auto 0.0 % [facility] nRBC Abs Auto 0.000 0.000 - 0.000 x10(3)/[facility] Blood 07/09/2023 3:03 AM EDT 07/09/2023 3:14 AM EDT Narrative Resulting Agency Comment Spec In Lab Terrence Keating MD HEMATOLOGY ORDERABLE S [facility] [place] [address] * Heparin (unfractionated) Level (07/09/2023 3:03 AM EDT) Heparin UFH Level 0.52 IU/mL [facility] Comment: Heparin (anti-Xa) levels [...] Lab Ailyn Irvin MD HEMATOLOGY ORDERABLE S [facility] [place] [address] * (ABNORMAL) Basic Metabolic Panel (non-fasting) (07/09/2023 3:03 AM EDT) Glucose Lvl 100 65 - 199 mg/dL [facility] Comment:Diabetes: >=200 mg/d L plus symptoms BUN 12 8 - 18 mg/dL [facility] Creatinine 1.24(H) 0.70 - 1.20 mg/dL [facility] Sodium 138 135 - 145 mmol/L [facility] Potassium 4.2 3.5 - 5.0 mmol/L [facility] Comment: Please note: ??Patients with WBC >100,000 may have falsely elevated Potassium levels. ??For accurate Potassium quantification in these patients send serum separator tube (gold top) for subsequent determinations. ??Contact the Clinical Chemistry Laboratory if there are any questions. Chloride 104 98 - 107 mmol/L [facility] CO2 22 22 - 31 mmol/L [facility] Anion Gap 12 5 - 15 mmol/L [facility] Calcium 9.3 8.5 - 10.5 mg/dL [facility] Estimated GFR 52(L) >=60 mL/min/1. 73 m?? [facility] Comment: This patient's estimated [...] MD CHEMISTRY ORDERABL ES Performing Organization Address [facility]/ZIP Co de Phone Number [facility] [place] [address] * Phosphorus (07/09/2023 3:03 AM EDT) Phosphorus 4.5 2.5 - 4.5 mg/dL [facility] Blood 07/09/2023 3:03 AM EDT 07/09/2023 3:14 AM EDT Narrative Resulting Agency Comment Spec In Lab Eufemia Copeland MD CHEMISTRY ORDERABL ES Performing Organization Address [facility] Co de Phone Number [facility] [place] [address] * Magnesium (07/09/2023 3:03 AM EDT) Magnesium 0.91 0.69 - 1.07 mmol/L [facility] Blood 07/09/2023 3:03 AM EDT 07/09/2023 3:14 AM EDT Narrative Resulting Agency Comment Spec In Lab Eufemia Copeland MD CHEMISTRY ORDERABL ES Performing Organization Address [facility] Co de Phone Number [facility] [place] [address] * Heparin (unfractionated) Level (07/08/2023 12:02 PM EDT) Heparin UFH Level 0.45 IU/mL [facility] Comment: Heparin (anti-Xa) levels [...] Lab Terrence Keating MD HEMATOLOGY ORDERABLE S [facility] [place] [phone] * EKG 12 Lead (07/08/2023 9:58 AM EDT) Ventricular rate 66 BPM MUSE SYSTEM Atrial Rate 66 BPM MUSE SYSTEM P-R Interval 178 ms MUSE SYSTEM QRS Duration 92 ms MUSE SYSTEM Q-T Interval 486 ms MUSE SYSTEM QTC Calculated ([place]) 509 ms MUSE SYSTEM Calculated P [place] 29 degrees MUSE SYSTEM Calculated R [place] 33 degrees MUSE SYSTEM Calculated T [place] 29 degrees MUSE SYSTEM INTERPRETATION Normal sinus rhythm Nonspecific ST and T wave abnormality Prolonged QT Abnormal ECG When compared with ECG of 04-JUL-2023 11:41, Criteria for Septal infarct are no longer Present I personally reviewed the tracing and edited the fellows interpretation Confirmed by fellow MD Keyshawn, Katalina ([id number]) on 07/08/2023 3:18:07 PM Confirmed by MD Beatriz, Klarissa ([id number]) on 07/09/2023 6:15:21 AM MUSE SYSTEM 07/08/2023 9:58 AM EDT 07/09/2023 6:15 AM EDT Lisa Beck MD ECG ORDERABLES Performing Organization Address City/[facility]/ZIP Co de Phone Number MUSE SYSTEM * Differential, Automated (07/08/2023 5:52 AM EDT) Neutrophils % 60.6 % [facility] Neutr Abs (ANC) 4.42 1.70 - 6.10 x10(3)/mcL [facility] Lymphocytes % 24.8 % [facility] Lymphocytes Abs 1.8 0.9 - 3.2 x10(3)/[facility] Monocytes % 9.2 % [facility] Monocyte Abs 0.7 0.3 - 0.9 x10(3)/[facility] Eosinophils % 4.5 % [facility] Eosinophils Abs 0.3 0.0 - 0.4 x10(3)/[facility] Basophils % 0.5 % [facility] Basophils Abs 0.0 0.0 - 0.1 x10(3)/[facility] Immature Gran % 0.40 % [facility] Comment: Immature granulocytes(IG's)percentage and absolute count will include metamyelocytes, myelocytes, and promyelocytes. Blood smears from CBCs yielding IG's will be scanned manually for concordance. If this scan disagrees with the automated IG or if promyelocytes are noted, a manual differential will be performed. Shonda Gran Abs 0.03 0.00 - 0.04 x10(3)/[facility] Blood 07/08/2023 5:52 AM EDT 07/08/2023 5:58 AM EDT Narrative Resulting Agency Comment Spec In Lab Terrence Keating MD HEMATOLOGY ORDERABLE S [facility] [place] [address] * (ABNORMAL) Hemogram (07/08/2023 5:52 AM EDT) WBC 7.3 4.0 - 9.5 x10(3)/[facility] RBC 3.94(L) 4.00 - 5.21 x10(6)/[facility] Hemoglobin 12.3 11.7 - 15.5 g/dL [facility] Hematocrit 36.3 35.7 - 45.8 % [facility] MCV 92.1 82.6 - 94.4 [facility] MCH 31.2 27.1 - 32.0 pg [facility] MCHC 33.9 31.7 - 35.0 g/dL [facility] Platelets 207 145 - 357 x10(3)/[facility] RDWSD 44.6 37.0 - 46.0 [facility] RDWCV 13.3 11.5 - 14.1 % [facility] MPV 10.5 7.6 - 12.9 [facility] nRBC % Auto 0.0 % [facility] nRBC Abs Auto 0.000 0.000 - 0.000 x10(3)/[facility] Blood 07/08/2023 5:52 AM EDT 07/08/2023 5:58 AM EDT Narrative Resulting Agency Comment Spec In Lab Terrence Keating MD HEMATOLOGY ORDERABLE S [facility] [place] [address] * Heparin (unfractionated) Level (07/08/2023 5:52 AM EDT) Heparin UFH Level 0.37 IU/mL [facility] Comment: Heparin (anti-Xa) levels [...] Lab Ailyn Irvin MD HEMATOLOGY ORDERABLE S [facility] [place] [address] * (ABNORMAL) Basic Metabolic Panel (non-fasting) (07/08/2023 5:52 AM EDT) Glucose Lvl 102 65 - 199 mg/dL [facility] Comment:Diabetes: >=200 mg/d L plus symptoms BUN 14 8 - 18 mg/dL [facility] Creatinine 1.30(H) 0.70 - 1.20 mg/dL [facility] Sodium 139 135 - 145 mmol/L [facility] Potassium 3.2(L) 3.5 - 5.0 mmol/L [facility] Comment: Please note: ??Patients with WBC >100,000 may have falsely elevated Potassium levels. ??For accurate Potassium quantification in these patients send serum separator tube (gold top) for subsequent determinations. ??Contact the Clinical Chemistry Laboratory if there are any questions. Chloride 101 98 - 107 mmol/L [facility] CO2 25 22 - 31 mmol/L [facility] Anion Gap 13 5 - 15 mmol/L [facility] Calcium 9.3 8.5 - 10.5 mg/dL [facility] Estimated GFR 49(L) >=60 mL/min/1. 73 m?? [facility] Comment: This patient's estimated [...] MD CHEMISTRY ORDERABL ES Performing Organization Address [facility] Co de Phone Number [facility] [place] [address] * Phosphorus (07/08/2023 5:52 AM EDT) Phosphorus 4.3 2.5 - 4.5 mg/dL [facility] Blood 07/08/2023 5:52 AM EDT 07/08/2023 5:58 AM EDT Narrative Resulting Agency Comment Spec In Lab Eufemia Copeland MD CHEMISTRY ORDERABL ES Performing Organization Address [facility] de Phone Number [facility] [place] [address] * Magnesium (07/08/2023 5:52 AM EDT) Magnesium 0.89 0.69 - 1.07 mmol/L [facility] Blood 07/08/2023 5:52 AM EDT 07/08/2023 5:58 AM EDT Narrative Resulting Agency Comment Spec In Lab Eufemia Copeland MD CHEMISTRY ORDERABL ES Performing Organization Address [facility] de Phone Number [facility] [place] [address] * Heparin (unfractionated) Level (07/08/2023 12:00 AM EDT) Heparin UFH Level 0.22 IU/mL [facility] Comment: Heparin (anti-Xa) levels [...] MD HEMATOLOGY ORDERABLE S Performing Organization Address [facility]/ZIP Co de Phone Number [facility] [place] [address] * Specimen to Pathology (07/07/2023 2:55 PM EDT) AP Specimen 07/07/2023 2:55 PM EDT 07/07/2023 2:55 PM EDT Narrative [facility] [facility] - 07/07/2023 2:55 PM EDT Specimen requisition ordered. ??Separate Pathology report to follow Terrence Keating MD PATHOLOGY/CYTOLOGY O RUMA Performing Organization Address [facility]/ZIP Co de Phone Number [facility] [place] [address] * Specimen to Pathology (07/07/2023 2:38 PM EDT) AP Specimen 07/07/2023 2:38 PM EDT 07/07/2023 2:38 PM EDT Narrative [facility] - 07/07/2023 2:38 PM EDT Specimen requisition ordered. ??Separate Pathology report to follow Terrence Keating MD PATHOLOGY/CYTOLOGY O RUMA Performing Organization Address City/[facility]/ZIP Co de Phone Number [facility] [place] [address] * Specimen to Pathology (07/07/2023 2:38 PM EDT) AP Specimen 07/07/2023 2:38 PM EDT 07/07/2023 2:38 PM EDT Narrative [facility] - 07/07/2023 2:38 PM EDT Specimen requisition ordered. ??Separate Pathology report to follow Terrence Keating MD PATHOLOGY/CYTOLOGY Deyanira HENDRIX [facility] [place] [phone] * Surgical Pathology Report (07/07/2023 2:25 PM EDT) Surgical Pathology Report [id number] ? Location: [facility]; [facility]; A The signing pathologist has (i) examined [...] Sapna Verified: ??07/19/2023 13:25 ??Pathologist Performed at: ??-[facility] Dept. of Pathology, [place] [address] Summer Analyst: Vangie Lu MD, FCAP, ??CLIA Certificate: [id number] SPECIMEN(S) SUBMITTED A - duodenal biopsies rule [...] toto ??in 2 cassettes labeled C1-C2. ??sdy [facility] 07/07/2023 2:25 PM EDT Lashonda Villa MD PATHOLOGY/CYTOLOGY O RUMA [facility] [place] [place] [address] * COLONOSCOPY (07/07/2023 1:39 PM EDT) COLONOSCOPY [facility] Procedure Date: 07/07/2023 1:39 PM ? Patient Name: Loida Roque ? Date of : 1970 ? Age: 53 ? Order #: [id number] ? Instrument Name: [id number]- [id number] ? Procedure: ? Colonoscopy Indications: ? Abdominal pain, Diarrhea Providers: ? Lashonda Villa MD, Wilsey ? Mercedes San Lori Agan Referring MD: [...] ? was evaluated using the BBPS ? ([place] Bowel Preparation Scale) ? with scores of: [...] Procedure Code(s): ? --- Professional --- ? 35786, Colonoscopy, flexible; with ? biopsy, single or multiple CPT copyright 2021 [employer]. All rights reserved. The codes documented in this report are preliminary and upon infant lead teacher review may be revised to meet current [...] 1 EIA Negative for Shiga Toxin 2 [facility] Stool 07/07/2023 12:1 0 PM EDT 07/07/2023 12:53 PM EDT Narrative Resulting Agency Comment Spec In Lab Ailyn Irvin MD MICROBIOLOGY - GENER AL ORDERABLES Performing Organization Address [facility] de Phone Number [facility] [place] [address] * Campylobacter Antigen (07/07/2023 12:10 PM EDT) Campylobacter Ag Immunoassay Negative for Campylobacter Antigen [facility] Stool 07/07/2023 12:1 0 PM EDT 07/07/2023 12:53 PM EDT Narrative Resulting Agency Comment Spec In Lab Ailyn Irvin MD MICROBIOLOGY - GENER AL ORDERABLES Performing Organization Address [facility] de Phone Number [facility] [place] [address] * Stool culture (07/07/2023 12:10 PM EDT) Stool Culture No enteric pathogens isolated [facility] Stool 07/07/2023 12:1 0 PM EDT 07/07/2023 12:53 PM EDT Narrative Resulting Agency Comment Spec In Lab Ailyn Irvin MD MICROBIOLOGY - GENER AL ORDERABLES Performing Organization Address [facility] de Phone Number [facility] [place] [address] * (ABNORMAL) Differential, Automated (07/07/2023 3:51 AM EDT) Neutrophils % 58.9 % [facility] Neutr Abs (ANC) 4.67 1.70 - 6.10 x10(3)/mc L [facility] Lymphocytes % 24.8 % [facility] Lymphocytes Abs 2.0 0.9 - 3.2 x10(3)/ L [facility] Monocytes % 9.4 % [facility] Monocyte Abs 0.7 0.3 - 0.9 x10(3)/[facility] Eosinophils % 6.1 % [facility] Eosinophils Abs 0.5(H) 0.0 - 0.4 x10(3)/[facility] Basophils % 0.5 % [facility] Basophils Abs 0.0 0.0 - 0.1 x10(3)/[facility] Immature Gran % 0.30 % [facility] Comment: Immature granulocytes(IG's)percentage and absolute count will include metamyelocytes, myelocytes, and promyelocytes. Blood smears from CBCs yielding IG's will be scanned manually for concordance. If this scan disagrees with the automated IG or if promyelocytes are noted, a manual differential will be performed. Shonda Gran Abs 0.02 0.00 - 0.04 x10(3)/[facility] Blood 07/07/2023 3:51 AM EDT 07/07/2023 4:08 AM EDT Narrative Resulting Agency Comment Spec In Lab Terrence Keating MD HEMATOLOGY ORDERABLE S [facility] [place] [address] * Hemogram (07/07/2023 3:51 AM EDT) WBC 7.9 4.0 - 9.5 x10(3)/[facility] RBC 4.42 4.00 - 5.21 x10(6)/[facility] Hemoglobin 13.8 11.7 - 15.5 g/dL [facility] Hematocrit 41.0 35.7 - 45.8 % [facility] MCV 92.8 82.6 - 94.4 fL [facility] MCH 31.2 27.1 - 32.0 pg [facility] MCHC 33.7 31.7 - 35.0 g/dL [facility] Platelets 255 145 - 357 x10(3)/[facility] RDWSD 44.8 37.0 - 46.0 fL [facility] RDWCV 13.2 11.5 - 14.1 % [facility] MPV 10.6 7.6 - 12.9 [facility] nRBC % Auto 0.0 % [facility] nRBC Abs Auto 0.000 0.000 - 0.000 x10(3)/[facility] Blood 07/07/2023 3:51 AM EDT 07/07/2023 4:08 AM EDT Narrative Resulting Agency Comment Spec In Lab Terrence Keating MD HEMATOLOGY ORDERABLE S [facility] [place] [address] * Heparin (unfractionated) Level (07/07/2023 3:51 AM EDT) Heparin UFH Level 0.33 IU/mL [facility] Comment: Heparin (anti-Xa) levels [...] Lab Terrence Keating MD HEMATOLOGY ORDERABLE S [facility] [place] [address] * (ABNORMAL) Basic Metabolic Panel (non-fasting) (07/07/2023 3:51 AM EDT) Glucose Lvl 101 65 - 199 mg/dL [facility] Comment:Diabetes: >=200 mg/d L plus symptoms BUN 18 8 - 18 mg/dL [facility] Creatinine 1.30(H) 0.70 - 1.20 mg/dL [facility] Sodium 135 135 - 145 mmol/L [facility] Potassium 3.5 3.5 - 5.0 mmol/L [facility] Comment: Please note: ??Patients with WBC >100,000 may have falsely elevated Potassium levels. ??For accurate Potassium quantification in these patients send serum separator tube (gold top) for subsequent determinations. ??Contact the Clinical Chemistry Laboratory if there are any questions. Chloride 96(L) 98 - 107 mmol/L [facility] CO2 23 22 - 31 mmol/L [facility] Anion Gap 16(H) 5 - 15 mmol/L [facility] Calcium 9.4 8.5 - 10.5 mg/dL [facility] Estimated GFR 49(L) >=60 mL/min/1. 73 m?? [facility] Comment: This patient's estimated [...] MD CHEMISTRY ORDERABL ES Performing Organization Address [facility] de Phone Number [facility] [place] [address] * Phosphorus (07/07/2023 3:51 AM EDT) Phosphorus 4.0 2.5 - 4.5 mg/dL [facility] Blood 07/07/2023 3:51 AM EDT 07/07/2023 4:08 AM EDT Narrative Resulting Agency Comment Spec In Lab Eufemia Copeland MD CHEMISTRY ORDERABL ES Performing Organization Address [facility] Phone Number [facility] [place] [address] * Magnesium (07/07/2023 3:51 AM EDT) Magnesium 0.87 0.69 - 1.07 mmol/L [facility] Blood 07/07/2023 3:51 AM EDT 07/07/2023 4:08 AM EDT Narrative Resulting Agency Comment Spec In Lab Eufemia Copeland MD CHEMISTRY ORDERABL ES Performing Organization Address [facility] de Phone Number [facility] [place] [address] * Hepatic Function Panel (07/07/2023 3:51 AM EDT) Total Protein 7.5 6.1 - 8.0 g/dL [facility] Albumin 4.4 3.2 - 5.2 g/dL [facility] AST 15 0 - 30 unit/L [facility] ALT 20 0 - 30 unit/L [facility] Alk Phos 54 35 - 105 unit/L [facility] Total Bilirubin 0.4 0.2 - 1.3 mg/dL [facility] Bili, Direct 0.1 0.0 - 0.3 mg/dL [facility] Blood 07/07/2023 3:51 AM EDT 07/07/2023 4:08 AM EDT Narrative Resulting Agency Comment Spec In Lab Ailyn Irvin MD CHEMISTRY ORDERABLES Performing Organization Address City/[facility] Co de Phone Number [facility] [place] [address] * Giardia/Cryptosporidium Antigens ([facility]/CGP/APD/NLH) (07/07/2023 12:38 AM EDT) Pathologist [facility] Giardia Screen Negative Negative [facility] Comment:Examination for othe r intestinal parasites requires foreign travel history. Cryptosporidium Screen Negative Negative [facility] Stool 07/07/2023 12:3 8 AM EDT 07/07/2023 7:56 AM EDT Narrative Resulting Agency Comment Spec In Lab Ailyn Irvin MD MICROBIOLOGY - GENER AL ORDERABLES Performing Organization Address [facility] Co de Phone Number [facility] [place] [address] * Hepatic Function Panel (07/06/2023 3:41 PM EDT) Total Protein 7.6 6.1 - 8.0 g/dL [facility] Albumin 4.3 3.2 - 5.2 g/dL [facility] AST 20 0 - 30 unit/L [facility] ALT 22 0 - 30 unit/L [facility] Alk Phos 58 35 - 105 unit/L [facility] Total Bilirubin 0.4 0.2 - 1.3 mg/dL [facility] Bili, Direct 0.1 0.0 - 0.3 mg/dL [facility] Blood 07/06/2023 3:41 PM EDT 07/06/2023 4:00 PM EDT Narrative Resulting Agency Comment Spec In Lab Terrence Keating MD CHEMISTRY ORDERABLES Performing Organization Address [facility] Co de Phone Number [facility] [place] [address] * Hepatic Function Panel (07/06/2023 3:54 AM EDT) [facility] Total Protein 7.6 6.1 - 8.0 g/dL [facility] Albumin 4.3 3.2 - 5.2 g/dL [facility] AST Not Perf 0 - 30 [facility] Comment: Unable to quantitate due to sample hemolysis. ??Sample redraw suggested. Called by: abimbola, Read back by: Ana Paula Borja, Date/Time:07/06/23 14:08. ALT 25 0 - 30 unit/L [facility] Alk Phos 58 35 - 105 unit/L [facility] Total Bilirubin 0.4 0.2 - 1.3 mg/dL [facility] Bili, Direct Not Perf 0.0 - 0.3 [facility] Blood Venous Draw / Unknown 07/06/2023 3:54 AM EDT 07/06/2023 4:18 AM EDT Narrative Resulting Agency Comment Spec In Lab Terrence Keating MD CHEMISTRY ORDERABLES Performing Organization Address City/[facility]/ZIP Co de Phone Number [facility] [place] [address] * (ABNORMAL) Differential, Automated (07/06/2023 3:54 AM EDT) [facility] Neutrophils % 56.6 % [facility] Neutr Abs (ANC) 4.34 1.70 - 6.10 x10(3)/mc L [facility] Lymphocytes % 26.1 % [facility] Lymphocytes Abs 2.0 0.9 - 3.2 x10(3)/[facility] Monocytes % 9.6 % [facility] Monocyte Abs 0.7 0.3 - 0.9 x10(3)/[facility] Eosinophils % 6.6 % [facility] Eosinophils Abs 0.5(H) 0.0 - 0.4 x10(3)/[facility] Basophils % 0.7 % [facility] Basophils Abs 0.0 0.0 - 0.1 x10(3)/[facility] Immature Gran % 0.40 % [facility] Comment: Immature granulocytes(IG's)percentage and absolute count will include metamyelocytes, myelocytes, and promyelocytes. Blood smears from CBCs yielding IG's will be scanned manually for concordance. If this scan disagrees with the automated IG or if promyelocytes are noted, a manual differential will be performed. Shonda Gran Abs 0.03 0.00 - 0.04 x10(3)/[facility] Blood 07/06/2023 3:54 AM EDT 07/06/2023 4:12 AM EDT Narrative Resulting Agency Comment Spec In Lab Terrence Keating MD HEMATOLOGY ORDERABLE S [facility] [place] [address] * (ABNORMAL) Hemogram (07/06/2023 3:54 AM EDT) WBC 7.7 4.0 - 9.5 x10(3)/[facility] RBC 4.62 4.00 - 5.21 x10(6)/[facility] Hemoglobin 14.7 11.7 - 15.5 g/dL [facility] Hematocrit 43.8 35.7 - 45.8 % [facility] MCV 94.8(H) 82.6 - 94.4 fL [facility] MCH 31.8 27.1 - 32.0 pg [facility] MCHC 33.6 31.7 - 35.0 g/dL [facility] Platelets 243 145 - 357 x10(3)/[facility] RDWSD 47.2(H) 37.0 - 46.0 [facility] RDWCV 13.5 11.5 - 14.1 % [facility] MPV 10.4 7.6 - 12.9 [facility] nRBC % Auto 0.0 % [facility] nRBC Abs Auto 0.000 0.000 - 0.000 x10(3)/[facility] Blood 07/06/2023 3:54 AM EDT 07/06/2023 4:12 AM EDT Narrative Resulting Agency Comment Spec In Lab Terrence Keating MD HEMATOLOGY ORDERABLE S [facility] [place] [address] * (ABNORMAL) Basic Metabolic Panel (non-fasting) (07/06/2023 3:54 AM EDT) Glucose Lvl 107 65 - 199 mg/dL [facility] Comment:Diabetes: >=200 mg/d L plus symptoms BUN 16 8 - 18 mg/dL [facility] Creatinine 1.25(H) 0.70 - 1.20 mg/dL [facility] Sodium 135 135 - 145 mmol/L [facility] Potassium 3.9 3.5 - 5.0 mmol/L [facility] Comment: Please note: ??Patients with WBC >100,000 may have falsely elevated Potassium levels. ??For accurate Potassium quantification in these patients send serum separator tube (gold top) for subsequent determinations. ??Contact the Clinical Chemistry Laboratory if there are any questions. Chloride 98 98 - 107 mmol/L [facility] CO2 23 22 - 31 mmol/L [facility] Anion Gap 14 5 - 15 mmol/L [facility] Calcium 10.0 8.5 - 10.5 mg/dL [facility] Estimated GFR 51(L) >=60 mL/min/1. 73 m?? [facility] Comment: This patient's estimated [...] Organization Address City/[facility]/ZIP Co de Phone Number [facility] [place] [address] * Phosphorus (07/06/2023 3:54 AM EDT) Phosphorus 4.5 2.5 - 4.5 mg/dL [facility] Blood 07/06/2023 3:54 AM EDT 07/06/2023 4:18 AM EDT Narrative Resulting Agency Comment Spec In Lab Eufemia Copeland MD CHEMISTRY ORDERABL ES [facility] [place] [address] * Magnesium (07/06/2023 3:54 AM EDT) Magnesium 0.97 0.69 - 1.07 mmol/L [facility] Blood 07/06/2023 3:54 AM EDT 07/06/2023 4:18 AM EDT Narrative Resulting Agency Comment Spec In Lab Eufemia Copeland MD CHEMISTRY ORDERABL ES Performing Organization Address [facility] Co de Phone Number [facility] [place] [address] * Heparin (unfractionated) Level (07/06/2023 3:54 AM EDT) Heparin UFH Level 0.31 IU/mL [facility] Comment: Heparin (anti-Xa) levels [...] MD HEMATOLOGY ORDERABLE S Performing Organization Address City/[facility] Co de Phone Number [facility] [place] [address] * Amylase (07/05/2023 5:44 PM EDT) Amylase 35 28 - 100 unit/L [facility] Blood 07/05/2023 5:44 PM EDT 07/05/2023 6:00 PM EDT Narrative Resulting Agency Comment Spec In Lab Terrence Keating MD CHEMISTRY ORDERABLES Performing Organization Address City/[facility]/ZIP Co de Phone Number [facility] [place] [address] * Lipase (07/05/2023 5:44 PM EDT) Lipase 17 0 - 60 unit/L [facility] Blood 07/05/2023 5:44 PM EDT 07/05/2023 6:00 PM EDT Narrative Resulting Agency Comment Spec In Lab Terrence Keating MD CHEMISTRY ORDERABLES [facility] [place] [address] * (ABNORMAL) Basic Metabolic Panel (non-fasting) (07/05/2023 5:44 PM EDT) Glucose Lvl 130 65 - 199 mg/dL [facility] Comment:Diabetes: >=200 mg/d L plus symptoms BUN 17 8 - 18 mg/dL [facility] Creatinine 1.30(H) 0.70 - 1.20 mg/dL [facility] Sodium 134(L) 135 - 145 mmol/L [facility] Potassium 3.7 3.5 - 5.0 mmol/L [facility] Comment: Please note: ??Patients with WBC >100,000 may have falsely elevated Potassium levels. ??For accurate Potassium quantification in these patients send serum separator tube (gold top) for subsequent determinations. ??Contact the Clinical Chemistry Laboratory if there are any questions. Chloride 98 98 - 107 mmol/L [facility] CO2 21(L) 22 - 31 mmol/L [facility] Anion Gap 15 5 - 15 mmol/L [facility] Calcium 9.6 8.5 - 10.5 mg/dL [facility] Estimated GFR 49(L) >=60 mL/min/1. 73 m?? [facility] Comment: This patient's estimated [...] In Lab Terrence Keating MD CHEMISTRY ORDERABLES [facility] [place] [address] * Duplex Study Visceral Arteries, Comp (07/05/2023 9:46 AM EDT) VB Text Report Department: Vascular Surgery Lab Patient: [id number] (LOIDA ROQUE) CPT: [id number] Referring Physician: TERRENCE KEATING ?? Phone: Indications: [...] ?Bi-Triphasic ?101 ?11 ?? Hepatic Artery ? [place] ? 123 ?23 ?? Splenic Artery ? [place] ? 122 ?24 ?? Inf Mes Artery [...] 5:05 AM EDT) Neutrophils % 63.0 % [facility] Neutr Abs (ANC) 5.59 1.70 - 6.10 x10(3)/mcL [facility] Lymphocytes % 22.4 % [facility] Lymphocytes Abs 2.0 0.9 - 3.2 x10(3)/[facility] Monocytes % 9.7 % [facility] Monocyte Abs 0.9 0.3 - 0.9 x10(3)/[facility] Eosinophils % 4.1 % [facility] Eosinophils Abs 0.4 0.0 - 0.4 x10(3)/[facility] Basophils % 0.6 % [facility] Basophils Abs 0.0 0.0 - 0.1 x10(3)/[facility] LAB[facility] Immature Gran % 0.20 % [facility] Comment: Immature granulocytes(IG's)percentage and absolute count will include metamyelocytes, myelocytes, and promyelocytes. Blood smears from CBCs yielding IG's will be scanned manually for concordance. If this scan disagrees with the automated IG or if promyelocytes are noted, a manual differential will be performed. Shonda Gran Abs 0.02 0.00 - 0.04 x10(3)/[facility] Blood 07/05/2023 5:05 AM EDT 07/05/2023 5:17 AM EDT Narrative Resulting Agency Comment Spec In Lab Terrence Keating MD HEMATOLOGY ORDERABLE S [facility] [place] [address] * (ABNORMAL) Hemogram (07/05/2023 5:05 AM EDT) WBC 8.9 4.0 - 9.5 x10(3)/[facility] RBC 4.42 4.00 - 5.21 x10(6)/[facility] Hemoglobin 13.7 11.7 - 15.5 g/dL [facility] Hematocrit 41.4 35.7 - 45.8 % [facility] MCV 93.7 82.6 - 94.4 [facility] MCH 31.0 27.1 - 32.0 pg [facility] MCHC 33.1 31.7 - 35.0 g/dL [facility] Platelets 245 145 - 357 x10(3)/[facility] RDWSD 47.1(H) 37.0 - 46.0 fL [facility] RDWCV 13.7 11.5 - 14.1 % [facility] MPV 10.8 7.6 - 12.9 [facility] nRBC % Auto 0.0 % [facility] nRBC Abs Auto 0.000 0.000 - 0.000 x10(3)/[facility] Blood 07/05/2023 5:05 AM EDT 07/05/2023 5:17 AM EDT Narrative Resulting Agency Comment Spec In Lab Terrence Keating MD HEMATOLOGY ORDERABLE S [facility] [place] [address] * Heparin (unfractionated) Level (07/05/2023 5:05 AM EDT) Heparin UFH Level 0.35 IU/mL [facility] Comment: Heparin (anti-Xa) levels [...] Lab Ailyn Irvin MD HEMATOLOGY ORDERABLE S [facility] [place] [address] * (ABNORMAL) Basic Metabolic Panel (non-fasting) (07/05/2023 5:05 AM EDT) Glucose Lvl 114 65 - 199 mg/dL [facility] Comment:Diabetes: >=200 mg/d L plus symptoms BUN 19(H) 8 - 18 mg/dL [facility] Creatinine 1.51(H) 0.70 - 1.20 mg/dL [facility] Sodium 134(L) 135 - 145 mmol/L [facility] Potassium 3.8 3.5 - 5.0 mmol/L [facility] Comment: Please note: ??Patients with WBC >100,000 may have falsely elevated Potassium levels. ??For accurate Potassium quantification in these patients send serum separator tube (gold top) for subsequent determinations. ??Contact the Clinical Chemistry Laboratory if there are any questions. Chloride 97(L) 98 - 107 mmol/L [facility] CO2 25 22 - 31 mmol/L [facility] Anion Gap 12 5 - 15 mmol/L [facility] Calcium 10.0 8.5 - 10.5 mg/dL [facility] Estimated GFR 41(L) >=60 mL/min/1. 73 m?? [facility] Comment: This patient's estimated [...] MD CHEMISTRY ORDERABL ES Performing Organization Address [facility] de Phone Number [facility] [place] [address] * (ABNORMAL) Phosphorus (07/05/2023 5:05 AM EDT) Pathologist [facility] Phosphorus 5.0(H) 2.5 - 4.5 mg/dL [facility] Blood 07/05/2023 5:05 AM EDT 07/05/2023 5:17 AM EDT Narrative Resulting Agency Comment Spec In Lab Eufemia Copeland MD CHEMISTRY ORDERABL ES Performing Organization Address [facility] de Phone Number [facility] [place] [address] * Magnesium (07/05/2023 5:05 AM EDT) Pathologist [facility] Magnesium 1.01 0.69 - 1.07 mmol/L [facility] Blood 07/05/2023 5:05 AM EDT 07/05/2023 5:17 AM EDT Narrative Resulting Agency Comment Spec In Lab Eufemia Copeland MD CHEMISTRY ORDERABL ES Performing Organization Address [facility] de Phone Number [facility] [place] [address] * EKG 12 Lead (07/04/2023 11:41 AM EDT) Ventricular rate 76 BPM MUSE SYSTEM Atrial Rate 76 BPM MUSE SYSTEM P-R Interval 174 ms MUSE SYSTEM QRS Duration 88 ms MUSE SYSTEM Q-T Interval 450 ms MUSE SYSTEM QTC Calculated (Bezet) 506 ms MUSE SYSTEM Calculated P [place] 36 degrees MUSE SYSTEM Calculated R [place] 35 degrees MUSE SYSTEM Calculated T [place] 37 degrees MUSE SYSTEM INTERPRETATION Normal sinus [...] AM EDT 07/05/2023 6:21 AM EDT Lisa eBck MD ECG ORDERABLES MUSE SYSTEM * Differential, Automated (07/04/2023 3:47 AM EDT) Neutrophils % 63.5 % [facility] Neutr Abs (ANC) 5.19 1.70 - 6.10 x10(3)/[facility] Lymphocytes % 24.4 % [facility] Lymphocytes Abs 2.0 0.9 - 3.2 x10(3)/[facility] Monocytes % 8.1 % [facility] Monocyte Abs 0.7 0.3 - 0.9 x10(3)/[facility] Eosinophils % 3.4 % [facility] Eosinophils Abs 0.3 0.0 - 0.4 x10(3)/[facility] Basophils % 0.4 % [facility] Basophils Abs 0.0 0.0 - 0.1 x10(3)/[facility] Immature Gran % 0.20 % [facility] Comment: Immature granulocytes(IG's)percentage and absolute count will include metamyelocytes, myelocytes, and promyelocytes. Blood smears from CBCs yielding IG's will be scanned manually for concordance. If this scan disagrees with the automated IG or if promyelocytes are noted, a manual differential will be performed. Shonda Gran Abs 0.02 0.00 - 0.04 x10(3)/[facility] Blood 07/04/2023 3:47 AM EDT 07/04/2023 4:15 AM EDT Narrative Resulting Agency Comment Spec In Lab Terrence Keating MD HEMATOLOGY ORDERABLE S [facility] [place] [address] * (ABNORMAL) Hemogram (07/04/2023 3:47 AM EDT) WBC 8.2 4.0 - 9.5 x10(3)/[facility] RBC 4.26 4.00 - 5.21 x10(6)/[facility] Hemoglobin 13.5 11.7 - 15.5 g/dL [facility] Hematocrit 40.0 35.7 - 45.8 % [facility] MCV 93.9 82.6 - 94.4 [facility] MCH 31.7 27.1 - 32.0 pg [facility] MCHC 33.8 31.7 - 35.0 g/dL [facility] Platelets 219 145 - 357 x10(3)/[facility] RDWSD 47.0(H) 37.0 - 46.0 [facility] RDWCV 13.7 11.5 - 14.1 % [facility] MPV 11.0 7.6 - 12.9 [facility] nRBC % Auto 0.0 % [facility] nRBC Abs Auto 0.000 0.000 - 0.000 x10(3)/[facility] Blood 07/04/2023 3:47 AM EDT 07/04/2023 4:15 AM EDT Narrative Resulting Agency Comment Spec In Lab Terrence Keating MD HEMATOLOGY ORDERABLE S [facility] [place] [address] * Heparin (unfractionated) Level (07/04/2023 3:47 AM EDT) Heparin UFH Level 0.44 IU/mL [facility] Comment: Heparin (anti-Xa) levels [...] Lab Ailyn Irvin MD HEMATOLOGY ORDERABLE S [facility] [place] [address] * (ABNORMAL) Basic Metabolic Panel (non-fasting) (07/04/2023 3:47 AM EDT) [facility] Glucose Lvl 104 65 - 199 mg/dL [facility] Comment:Diabetes: >=200 mg/d L plus symptoms BUN 16 8 - 18 mg/dL [facility] Creatinine 1.28(H) 0.70 - 1.20 mg/dL [facility] Sodium 139 135 - 145 mmol/L [facility] Potassium 3.8 3.5 - 5.0 mmol/L [facility] Comment: Please note: ??Patients with WBC >100,000 may have falsely elevated Potassium levels. ??For accurate Potassium quantification in these patients send serum separator tube (gold top) for subsequent determinations. ??Contact the Clinical Chemistry Laboratory if there are any questions. Chloride 102 98 - 107 mmol/L [facility] CO2 21(L) 22 - 31 mmol/L [facility] Anion Gap 16(H) 5 - 15 mmol/L [facility] Calcium 9.5 8.5 - 10.5 mg/dL [facility] Estimated GFR 50(L) >=60 mL/min/1. 73 m?? [facility] Comment: This patient's estimated [...] Organization Address City/[facility]/ZIP Co de Phone Number [facility] [place] [address] * (ABNORMAL) Phosphorus (07/04/2023 3:47 AM EDT) Phosphorus 4.9(H) 2.5 - 4.5 mg/dL [facility] Blood 07/04/2023 3:47 AM EDT 07/04/2023 4:15 AM EDT Narrative Resulting Agency Comment Spec In Lab Eufemia Copeland MD CHEMISTRY ORDERABL ES [facility] [place] [address] * Magnesium (07/04/2023 3:47 AM EDT) Magnesium 1.05 0.69 - 1.07 mmol/L [facility] Blood 07/04/2023 3:47 AM EDT 07/04/2023 4:15 AM EDT Narrative Resulting Agency Comment Spec In Lab Eufemia Copeland MD CHEMISTRY ORDERABL ES Performing Organization Address [facility] [place] [address] * EKG 12 Lead (07/03/2023 9:36 PM EDT) Ventricular rate 61 BPM MUSE SYSTEM Atrial Rate 61 BPM MUSE SYSTEM P-R Interval 188 ms MUSE SYSTEM QRS Duration 88 ms MUSE SYSTEM Q-T Interval 512 ms MUSE SYSTEM QTC Calculated (Bezet) 515 ms MUSE SYSTEM Calculated P [place] 56 degrees MUSE SYSTEM Calculated R [place] 69 degrees MUSE SYSTEM Calculated T [place] 29 degrees MUSE SYSTEM INTERPRETATION Normal sinus [...] Beck MD ECG ORDERABLES Performing Organization Address [facility] de Phone Number MUSE SYSTEM * Magnesium (07/03/2023 6:00 PM EDT) Magnesium 0.89 0.69 - 1.07 mmol/L [facility] Blood 07/03/2023 6:00 PM EDT 07/03/2023 6:07 PM EDT Narrative Resulting Agency Comment Spec In Lab Lino Calles MD CHEMISTRY ORDERABLES Performing Organization Address City/[facility]/ZIP Co de Phone Number [facility] [place] [address] * (ABNORMAL) Basic Metabolic Panel (non-fasting) (07/03/2023 6:00 PM EDT) Glucose Lvl 116 65 - 199 mg/dL [facility] Comment:Diabetes: >=200 mg/d L plus symptoms BUN 16 8 - 18 mg/dL [facility] Creatinine 1.37(H) 0.70 - 1.20 mg/dL [facility] Sodium 137 135 - 145 mmol/L [facility] Potassium 4.1 3.5 - 5.0 mmol/L [facility] Comment: Please note: ??Patients with WBC >100,000 may have falsely elevated Potassium levels. ??For accurate Potassium quantification in these patients send serum separator tube (gold top) for subsequent determinations. ??Contact the Clinical Chemistry Laboratory if there are any questions. Chloride 102 98 - 107 mmol/L [facility] CO2 21(L) 22 - 31 mmol/L [facility] Anion Gap 14 5 - 15 mmol/L [facility] Calcium 9.5 8.5 - 10.5 mg/dL [facility] Estimated GFR 46(L) >=60 mL/min/1. 73 m?? [facility] Comment: This patient's estimated [...] Lab Lino Calles MD CHEMISTRY ORDERABLES [facility] [place] [address] * XR Chest One View (07/03/2023 3:18 PM EDT) WORKSTATION ID [id number] RAD Anatomical Region Laterality Modality Chest N/A Digital Radiogra phy Impressions 07/03/2023 3:27 PM EDT No pulmonary edema or pleural effusion Thank you for letting us participate in the care of this patient. ??If you are a health care provider and have any questions regarding this report, please contact the number below. ??For patients who have questions please contact the health manager medicare that requested 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 ? Electronically signed by: Itz Hayward MD, [facility] ??([phone]), at 07/03/2023 3:27 PM Narrative 07/03/2023 3:27 [...] patients who have questions please contactthe health manager medicare that requested 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 Electronically signed by: Itz Hayward MD, [facility]([phone]), at 07/03/2023 3:27 PM Lino Calles MD IMG DX ORDERABLES * Arterial Duplex Leg, Unil (07/03/2023 9:34 AM EDT) VB Text Report Department: Vascular Surgery Lab Patient: [id number] (LOIDA ROUQE) CPT: 89284 Referring Physician: LINO CALLES ?? Phone: Indications: [...] 3:07 AM EDT) Neutrophils % 67.2 % [facility] Neutr Abs (ANC) 5.51 1.70 - 6.10 x10(3)/[facility] Lymphocytes % 20.7 % [facility] Lymphocytes Abs 1.7 0.9 - 3.2 x10(3)/[facility] Monocytes % 7.7 % [facility] Monocyte Abs 0.6 0.3 - 0.9 x10(3)/[facility] Eosinophils % 3.7 % [facility] Eosinophils Abs 0.3 0.0 - 0.4 x10(3)/[facility] Basophils % 0.5 % [facility] Basophils Abs 0.0 0.0 - 0.1 x10(3)/[facility] Immature Gran % 0.20 % [facility] Comment: Immature granulocytes(IG's)percentage and absolute count will include metamyelocytes, myelocytes, and promyelocytes. Blood smears from CBCs yielding IG's will be scanned manually for concordance. If this scan disagrees with the automated IG or if promyelocytes are noted, a manual differential will be performed. Shonda Gran Abs 0.02 0.00 - 0.04 x10(3)/[facility] Blood 07/03/2023 3:07 AM EDT 07/03/2023 3:15 AM EDT Narrative Resulting Agency Comment Spec In Lab Terrence Keating MD HEMATOLOGY ORDERABLE S [facility] [place] [address] * (ABNORMAL) Hemogram (07/03/2023 3:07 AM EDT) Pathologist [facility] WBC 8.2 4.0 - 9.5 x10(3)/[facility] RBC 3.97(L) 4.00 - 5.21 x10(6)/[facility] Hemoglobin 12.5 11.7 - 15.5 g/dL [facility] Hematocrit 38.5 35.7 - 45.8 % [facility] MCV 97.0(H) 82.6 - 94.4 fL [facility] MCH 31.5 27.1 - 32.0 pg [facility] MCHC 32.5 31.7 - 35.0 g/dL [facility] Platelets 203 145 - 357 x10(3)/[facility] RDWSD 49.6(H) 37.0 - 46.0 [facility] RDWCV 13.7 11.5 - 14.1 % [facility] MPV 10.8 7.6 - 12.9 fL [facility] nRBC % Auto 0.0 % [facility] nRBC Abs Auto 0.000 0.000 - 0.000 x10(3)/[facility] Blood 07/03/2023 3:07 AM EDT 07/03/2023 3:15 AM EDT Narrative Resulting Agency Comment Spec In Lab Terrence Keating MD HEMATOLOGY ORDERABLE S [facility] [place] [place] [address] * Heparin (unfractionated) Level (07/03/2023 3:07 AM EDT) Pathologist [facility] Heparin UFH Level 0.49 IU/mL [facility] Comment: Heparin (anti-Xa) levels [...] Lab Ailyn Irvin MD HEMATOLOGY ORDERABLE S [facility] [place] [address] * (ABNORMAL) Basic Metabolic Panel (non-fasting) (07/03/2023 3:07 AM EDT) Glucose Lvl 104 65 - 199 mg/dL [facility] Comment:Diabetes: >=200 mg/d L plus symptoms BUN 16 8 - 18 mg/dL [facility] Creatinine 1.20 0.70 - 1.20 mg/dL [facility] Sodium 138 135 - 145 mmol/L [facility] Potassium 4.2 3.5 - 5.0 mmol/L [facility] Comment: Please note: ??Patients with WBC >100,000 may have falsely elevated Potassium levels. ??For accurate Potassium quantification in these patients send serum separator tube (gold top) for subsequent determinations. ??Contact the Clinical Chemistry Laboratory if there are any questions. Chloride 107 98 - 107 mmol/L [facility] CO2 20(L) 22 - 31 mmol/L [facility] Anion Gap 11 5 - 15 mmol/L [facility] Calcium 8.8 8.5 - 10.5 mg/dL [facility] Estimated GFR 54(L) >=60 mL/min/1. 73 m?? [facility] Comment: This patient's estimated [...] MD CHEMISTRY ORDERABL ES Performing Organization Address [facility] Co de Phone Number [facility] [place] [address] * Phosphorus (07/03/2023 3:07 AM EDT) Phosphorus 3.6 2.5 - 4.5 mg/dL [facility] Blood 07/03/2023 3:07 AM EDT 07/03/2023 3:15 AM EDT Narrative Resulting Agency Comment Spec In Lab Eufemia Copeland MD CHEMISTRY ORDERABL ES Performing Organization Address City/[facility] Co de Phone Number [facility] [place] [address] * Magnesium (07/03/2023 3:07 AM EDT) Magnesium 0.93 0.69 - 1.07 mmol/L [facility] Blood 07/03/2023 3:07 AM EDT 07/03/2023 3:15 AM EDT Narrative Resulting Agency Comment Spec In Lab Eufemia Copeland MD CHEMISTRY ORDERABL ES Performing Organization Address City/State/[facility] Co de Phone Number [facility] [place] [address] * Heparin (unfractionated) Level (07/02/2023 8:58 PM EDT) Heparin UFH Level 0.60 IU/mL [facility] Comment: Heparin (anti-Xa) levels [...] MD HEMATOLOGY ORDERABLE S Performing Organization Address [facility] Co de Phone Number [facility] [place] [address] * VS Arteriogram Mesenteric Vascular Surgery (07/02/2023 [...] anesthetic: 10 cc 1% lidocaine Heparin: Yes [id number] ?? Units Protamine: No ??mg Antibiotics: Ancef [...] We exchanged the sheath for a 7 Hebrew sea kayaking guide steerable sheath over a stiff wire. ??A Glidewire and Kumpe catheter were used to selectively cannulate the superior mesenteric artery. ??Direct angiography of the superior mesenteric artery was performed, confirming the results of the nonselective aortography performed. ??The lesion was predilated with a 4 mm x 40 mm Alstead balloon, and then a 6 mm X [...] 3:58 AM EDT) Neutrophils % 61.3 % [facility] Neutr Abs (ANC) 4.67 1.70 - 6.10 x10(3)/[facility] Lymphocytes % 27.6 % [facility] Lymphocytes Abs 2.1 0.9 - 3.2 x10(3)/[facility] Monocytes % 6.4 % [facility] Monocyte Abs 0.5 0.3 - 0.9 x10(3)/[facility] Eosinophils % 3.9 % [facility] Eosinophils Abs 0.3 0.0 - 0.4 x10(3)/[facility] Basophils % 0.5 % [facility] Basophils Abs 0.0 0.0 - 0.1 x10(3)/[facility] Immature Gran % 0.30 % [facility] Comment: Immature granulocytes(IG's)percentage and absolute count will include metamyelocytes, myelocytes, and promyelocytes. Blood smears from CBCs yielding IG's will be scanned manually for concordance. If this scan disagrees with the automated IG or if promyelocytes are noted, a manual differential will be performed. Shonda Gran Abs 0.02 0.00 - 0.04 x10(3)/[facility] Blood 07/02/2023 3:58 AM EDT 07/02/2023 4:14 AM EDT Narrative Resulting Agency Comment Spec In Lab Terrence Keating MD HEMATOLOGY ORDERABLE S [facility] [place] [address] * (ABNORMAL) Hemogram (07/02/2023 3:58 AM EDT) Pathologist [facility] WBC 7.6 4.0 - 9.5 x10(3)/[facility] RBC 4.12 4.00 - 5.21 x10(6)/[facility] Hemoglobin 12.9 11.7 - 15.5 g/dL [facility] Hematocrit 39.5 35.7 - 45.8 % [facility] MCV 95.9(H) 82.6 - 94.4 [facility] MCH 31.3 27.1 - 32.0 pg [facility] MCHC 32.7 31.7 - 35.0 g/dL [facility] Platelets 200 145 - 357 x10(3)/[facility] RDWSD 47.4(H) 37.0 - 46.0 [facility] RDWCV 13.3 11.5 - 14.1 % [facility] MPV 10.8 7.6 - 12.9 [facility] nRBC % Auto 0.0 % [facility] nRBC Abs Auto 0.000 0.000 - 0.000 x10(3)/[facility] Blood 07/02/2023 3:58 AM EDT 07/02/2023 4:14 AM EDT Narrative Resulting Agency Comment Spec In Lab Terrence Keating MD HEMATOLOGY ORDERABLE S [facility] [place] [address] * Heparin (unfractionated) Level (07/02/2023 3:58 AM EDT) Pathologist [facility] Heparin UFH Level 0.57 IU/mL [facility] Comment: Heparin (anti-Xa) levels [...] Lab Ailyn Irvin MD HEMATOLOGY ORDERABLE S [facility] [place] [address] * (ABNORMAL) Basic Metabolic Panel (non-fasting) (07/02/2023 3:58 AM EDT) Glucose Lvl 96 65 - 199 mg/dL [facility] Comment:Diabetes: >=200 mg/d L plus symptoms BUN 15 8 - 18 mg/dL [facility] Creatinine 1.21(H) 0.70 - 1.20 mg/dL [facility] Sodium 133(L) 135 - 145 mmol/L [facility] Potassium 4.1 3.5 - 5.0 mmol/L [facility] Comment: Please note: ??Patients with WBC >100,000 may have falsely elevated Potassium levels. ??For accurate Potassium quantification in these patients send serum separator tube (gold top) for subsequent determinations. ??Contact the Clinical Chemistry Laboratory if there are any questions. Chloride 104 98 - 107 mmol/L [facility] CO2 21(L) 22 - 31 mmol/L [facility] Anion Gap 8 5 - 15 mmol/L [facility] Calcium 8.8 8.5 - 10.5 mg/dL [facility] Estimated GFR 53(L) >=60 mL/min/1. 73 m?? [facility] Comment: This patient's estimated [...] MD CHEMISTRY ORDERABL ES Performing Organization Address [facility] Co de Phone Number [facility] [place] [address] * Phosphorus (07/02/2023 3:58 AM EDT) Phosphorus 3.8 2.5 - 4.5 mg/dL [facility] Blood 07/02/2023 3:58 AM EDT 07/02/2023 4:14 AM EDT Narrative Resulting Agency Comment Spec In Lab Eufemia Copeland MD CHEMISTRY ORDERABL ES Performing Organization Address [facility] Co de Phone Number [facility] [place] [address] * Magnesium (07/02/2023 3:58 AM EDT) Magnesium 0.95 0.69 - 1.07 mmol/L [facility] Blood 07/02/2023 3:58 AM EDT 07/02/2023 4:14 AM EDT Narrative Resulting Agency Comment Spec In Lab Eufemia Copeland MD CHEMISTRY ORDERABL ES Performing Organization Address City/[facility] Co de Phone Number [facility] [place] [address] * EKG 12 Lead (07/01/2023 12:08 PM EDT) Ventricular rate 48 BPM MUSE SYSTEM Atrial Rate 48 BPM MUSE SYSTEM P-R Interval 192 ms MUSE SYSTEM QRS Duration 92 ms MUSE SYSTEM Q-T Interval 474 ms MUSE SYSTEM QTC Calculated (Bezet) 423 ms MUSE SYSTEM Calculated P [place] 32 degrees MUSE SYSTEM Calculated R [place] 45 degrees MUSE SYSTEM Calculated T [place] 0 degrees MUSE SYSTEM INTERPRETATION Sinus bradycardia [...] Differential, Automated (07/01/2023 2:56 AM EDT) Pathologist [facility] Neutrophils % 50.5 % [facility] Neutr Abs (ANC) 3.47 1.70 - 6.10 x10(3)/[facility] Lymphocytes % 36.5 % [facility] Lymphocytes Abs 2.5 0.9 - 3.2 x10(3)/[facility] Monocytes % 7.7 % [facility] LABORATORY Monocyte Abs 0.5 0.3 - 0.9 x10(3)/[facility] LABORATORY Eosinophils % 4.5 % [facility] LABORATORY Eosinophils Abs 0.3 0.0 - 0.4 x10(3)/[facility] LABORATORY Basophils % 0.7 % [facility] LABORATORY Basophils Abs 0.0 0.0 - 0.1 x10(3)/[facility] LABORATORY Immature Gran % 0.10 % [facility] LABORATORY Comment: Immature granulocytes(IG's)percentage and absolute count will include metamyelocytes, myelocytes, and promyelocytes. Blood smears from CBCs yielding IG's will be scanned manually for concordance. If this scan disagrees with the automated IG or if promyelocytes are noted, a manual differential will be performed. Shonda Gran Abs 0.01 0.00 - 0.04 x10(3)/[facility] LABORATORY Blood 07/01/2023 2:56 AM EDT 07/01/2023 3:22 AM EDT Narrative Resulting Agency Comment Spec In Lab Terrence Keating MD HEMATOLOGY ORDERABLE S [facility] [place] [address] * (ABNORMAL) Hemogram (07/01/2023 2:56 AM EDT) WBC 6.9 4.0 - 9.5 x10(3)/[facility] LABORATORY RBC 4.04 4.00 - 5.21 x10(6)/[facility] LABORATORY Hemoglobin 12.8 11.7 - 15.5 g/dL [facility] LABORATORY Hematocrit 39.0 35.7 - 45.8 % [facility] MCV 96.5(H) 82.6 - 94.4 fL [facility] MCH 31.7 27.1 - 32.0 pg [facility] MCHC 32.8 31.7 - 35.0 g/dL [facility]OR[facility] Platelets 224 145 - 357 x10(3)/[facility] LABORATORY RDWSD 47.8(H) 37.0 - 46.0 fL [facility] LABORATORY RDWCV 13.3 11.5 - 14.1 % [facility] LABORATORY MPV 11.1 7.6 - 12.9 fL [facility] nRBC % Auto 0.0 % [facility] nRBC Abs Auto 0.000 0.000 - 0.000 x10(3)/mcL [facility] LABORATORY Blood 07/01/2023 2:56 AM EDT 07/01/2023 3:22 AM EDT Narrative Resulting Agency Comment Spec In Lab Terrence Keating MD HEMATOLOGY ORDERABLE S Performing Organization Address City/[facility]/ZIP Co de Phone Number [facility] [place] [address] * Heparin (unfractionated) Level (07/01/2023 2:56 AM EDT) Heparin UFH Level 0.56 IU/mL [facility] LABORATORY Comment: Heparin (anti-Xa) levels [...] Lab Ailyn Irvin MD HEMATOLOGY ORDERABLE S [facility] [place] [address] * (ABNORMAL) Basic Metabolic Panel (non-fasting) (07/01/2023 2:56 AM EDT) Glucose Lvl 95 65 - 199 mg/dL [facility] LABORATORY Comment:Diabetes: >=200 mg/d L plus symptoms BUN 16 8 - 18 mg/dL [facility] Creatinine 1.21(H) 0.70 - 1.20 mg/dL [facility] Sodium 137 135 - 145 mmol/L [facility] Potassium 4.1 3.5 - 5.0 mmol/L [facility] Comment: Please note: ??Patients with WBC >100,000 may have falsely elevated Potassium levels. ??For accurate Potassium quantification in these patients send serum separator tube (gold top) for subsequent determinations. ??Contact the Clinical Chemistry Laboratory if there are any questions. Chloride 105 98 - 107 mmol/L [facility] LABOR[facility]ORY CO2 22 22 - 31 mmol/L [facility] Anion Gap 10 5 - 15 mmol/L [facility] Calcium 9.0 8.5 - 10.5 mg/dL [facility] Estimated GFR 53(L) >=60 mL/min/1. 73 m?? [facility] Comment: This patient's estimated [...] Lab Eufemia Copeland MD CHEMISTRY ORDERABL ES [facility] [place] [address] * Phosphorus (07/01/2023 2:56 AM EDT) Phosphorus 4.1 2.5 - 4.5 mg/dL [facility] LABORATORY Blood 07/01/2023 2:56 AM EDT 07/01/2023 3:22 AM EDT Narrative Resulting Agency Comment Spec In Lab Eufemia Copeland MD CHEMISTRY ORDERABL ES Performing Organization Address [facility] Co de Phone Number [facility] [place] [address] * Magnesium (07/01/2023 2:56 AM EDT) Magnesium 0.95 0.69 - 1.07 mmol/L [facility] LABOR[facility] Blood 07/01/2023 2:56 AM EDT 07/01/2023 3:22 AM EDT Narrative Resulting Agency Comment Spec In Lab Eufemia Copeland MD CHEMISTRY ORDERABL ES Performing Organization Address [facility] de Phone Number [facility] [place] [address] * Heparin (unfractionated) Level (06/30/2023 9:24 AM EDT) Heparin UFH Level 0.62 IU/mL [facility] Comment: Heparin (anti-Xa) levels [...] MD HEMATOLOGY ORDERABLE S Performing Organization Address [facility] Co de Phone Number [place] [address] * Differential, Automated (06/30/2023 3:14 AM EDT) Neutrophils % 49.5 % [facility] LABORATORY Neutr Abs (ANC) 3.96 1.70 - 6.10 x10(3)/[facility] LABORATORY Lymphocytes % 36.6 % [facility]OR[facility]ORY Lymphocytes Abs 2.9 0.9 - 3.2 x10(3)/[facility] LABORATORY Monocytes % 8.6 % [facility] Monocyte Abs 0.7 0.3 - 0.9 x10(3)/[facility] LABORATORY Eosinophils % 4.1 % [facility] Eosinophils Abs 0.3 0.0 - 0.4 x10(3)/[facility] LABORATORY Basophils % 0.8 % [facility] Basophils Abs 0.1 0.0 - 0.1 x10(3)/[facility] LABORATORY Immature Gran % 0.40 % [facility]ORY Comment: Immature granulocytes(IG's)percentage and absolute count will include metamyelocytes, myelocytes, and promyelocytes. Blood smears from CBCs yielding IG's will be scanned manually for concordance. If this scan disagrees with the automated IG or if promyelocytes are noted, a manual differential will be performed. Shonda Gran Abs 0.03 0.00 - 0.04 x10(3)/[facility] LABORATORY Blood 06/30/2023 3:14 AM EDT 06/30/2023 3:23 AM EDT Narrative Resulting Agency Comment Spec In Lab Terrence Keating MD [place] [address] * Hemogram (06/30/2023 3:14 AM EDT) WBC 8.0 4.0 - 9.5 x10(3)/[facility] LABORATORY RBC 4.22 4.00 - 5.21 x10(6)/[facility] LABORATORY Hemoglobin 13.1 11.7 - 15.5 g/dL [facility]OR[facility] Hematocrit 39.5 35.7 - 45.8 % [facility] MCV 93.6 82.6 - 94.4 fL [facility] MCH 31.0 27.1 - 32.0 pg [facility] MCHC 33.2 31.7 - 35.0 g/dL [facility] LABOR[facility] Platelets 235 145 - 357 x10(3)/[facility] LABORATORY RDWSD 45.3 37.0 - 46.0 fL [facility] RDWCV 13.3 11.5 - 14.1 % [facility]OR[facility] MPV 11.0 7.6 - 12.9 fL [facility] nRBC % Auto 0.0 % [facility] nRBC Abs Auto 0.000 0.000 - 0.000 x10(3)/[facility] LABORATORY Blood 06/30/2023 3:14 AM EDT 06/30/2023 3:23 AM EDT Narrative Resulting Agency Comment Spec In Lab Terrence Keating MD HEMATOLOGY ORDERABLE S [facility] [place] [address] * Heparin (unfractionated) Level (06/30/2023 3:14 AM EDT) Heparin UFH Level 0.70 IU/mL [facility]OR[facility] Comment: Heparin (anti-Xa) levels [...] Lab Terrence Keating MD HEMATOLOGY ORDERABLE S [facility] [place] [address] * (ABNORMAL) Basic Metabolic Panel (non-fasting) (06/30/2023 3:14 AM EDT) Glucose Lvl 103 65 - 199 mg/dL [facility] LABOR[facility]ORY Comment:Diabetes: >=200 mg/d L plus symptoms BUN 18 8 - 18 mg/dL [facility] Creatinine 1.22(H) 0.70 - 1.20 mg/dL [facility] Sodium 137 135 - 145 mmol/L [facility] Potassium 3.8 3.5 - 5.0 mmol/L [facility] Comment: Please note: ??Patients with WBC >100,000 may have falsely elevated Potassium levels. ??For accurate Potassium quantification in these patients send serum separator tube (gold top) for subsequent determinations. ??Contact the Clinical Chemistry Laboratory if there are any questions. Chloride 104 98 - 107 mmol/L [facility] CO2 23 22 - 31 mmol/L [facility] Anion Gap 10 5 - 15 mmol/L [facility] Calcium 9.1 8.5 - 10.5 mg/dL [facility] Estimated GFR 53(L) >=60 mL/min/1. 73 m?? [facility] Comment: This patient's estimated [...] MD CHEMISTRY ORDERABL ES Performing Organization Address [facility] Co de Phone Number [facility] [place] [address] * Phosphorus (06/30/2023 3:14 AM EDT) Phosphorus 4.4 2.5 - 4.5 mg/dL [facility] Blood 06/30/2023 3:14 AM EDT 06/30/2023 3:23 AM EDT Narrative Resulting Agency Comment Spec In Lab Eufemia Copeland MD CHEMISTRY ORDERABL ES Performing Organization Address [facility] de Phone Number [facility] [place] [address] * Magnesium (06/30/2023 3:14 AM EDT) Magnesium 0.94 0.69 - 1.07 mmol/L [facility] Blood 06/30/2023 3:14 AM EDT 06/30/2023 3:23 AM EDT Narrative Resulting Agency Comment Spec In Lab Eufemia Copeland MD CHEMISTRY ORDERABL ES Performing Organization Address [facility] Phone Number [facility] [place] [address] * Heparin (unfractionated) Level (06/29/2023 8:47 PM EDT) Heparin UFH Level 0.75 IU/mL [facility] Comment: Heparin (anti-Xa) levels [...] MD HEMATOLOGY ORDERABLE S Performing Organization Address City/[facility]/ZIP Co de Phone Number [facility] [place] [address] * EKG 12 Lead (06/29/2023 12:55 PM EDT) Ventricular rate 53 BPM MUSE SYSTEM Atrial Rate 53 BPM MUSE SYSTEM P-R Interval 196 ms MUSE SYSTEM QRS Duration 90 ms MUSE SYSTEM Q-T Interval 564 ms MUSE SYSTEM QTC Calculated (Bezet) 529 ms MUSE SYSTEM Calculated P [place] 30 degrees MUSE SYSTEM Calculated R [place] 53 degrees MUSE SYSTEM Calculated T [place] 5 degrees MUSE SYSTEM INTERPRETATION Sinus bradycardia Marked ST abnormality, possible inferior subendocardial injury Prolonged QT Abnormal ECG When compared with ECG of 26-JUN-2023 06:04, Nonspecific T wave abnormality no longer evident in Anterolateral leads QT has lengthened Confirmed by MD Angelo Danette ([id number]) on 06/29/2023 8:34:43 PM MUSE SYSTEM 06/29/2023 12:5 5 PM EDT 06/29/2023 8:34 PM EDT Terrence Keating MD ECG ORDERABLES Performing Organization Address City/[facility]/ZIP Co de Phone Number MUSE SYSTEM * (ABNORMAL) Heparin (unfractionated) Level (06/29/2023 11:34 AM EDT) [facility] Heparin UFH Level 1.41(Crit ical) IU/mL [facility] Comment: Critical Result called [...] Lab Ailyn Irvin MD HEMATOLOGY ORDERABLE S [facility] [place] [address] * Differential, Automated (06/29/2023 2:39 AM EDT) [facility] Neutrophils % 53.8 % [facility] Neutr Abs (ANC) 4.46 1.70 - 6.10 x10(3)/[facility] LABORATORY Lymphocytes % 33.5 % [facility] Lymphocytes Abs 2.8 0.9 - 3.2 x10(3)/[facility] LABORATORY Monocytes % 8.3 % [facility] Monocyte Abs 0.7 0.3 - 0.9 x10(3)/[facility] LABORATORY Eosinophils % 3.5 % [facility] Eosinophils Abs 0.3 0.0 - 0.4 x10(3)/[facility] LABORATORY Basophils % 0.5 % [facility] Basophils Abs 0.0 0.0 - 0.1 x10(3)/[facility] Immature Gran % 0.40 % [facility] Comment: Immature granulocytes(IG's)percentage and absolute count will include metamyelocytes, myelocytes, and promyelocytes. Blood smears from CBCs yielding IG's will be scanned manually for concordance. If this scan disagrees with the automated IG or if promyelocytes are noted, a manual differential will be performed. Shonda Gran Abs 0.03 0.00 - 0.04 x10(3)/[facility] LABORATORY Blood 06/29/2023 2:39 AM EDT 06/29/2023 3:33 AM EDT Narrative Resulting Agency Comment Spec In Lab Terrence Keating MD HEMATOLOGY ORDERABLE S [facility] [place] [address] * Hemogram (06/29/2023 2:39 AM EDT) WBC 8.3 4.0 - 9.5 x10(3)/[facility] LABORATORY RBC 4.19 4.00 - 5.21 x10(6)/[facility] LABORATORY Hemoglobin 13.2 11.7 - 15.5 g/dL [facility] Hematocrit 38.9 35.7 - 45.8 % [facility] MCV 92.8 82.6 - 94.4 fL [facility] MCH 31.5 27.1 - 32.0 pg [facility] MCHC 33.9 31.7 - 35.0 g/dL [facility] Platelets 237 145 - 357 x10(3)/[facility] RDWSD 45.3 37.0 - 46.0 fL [facility] RDWCV 13.3 11.5 - 14.1 % [facility] MPV 11.4 7.6 - 12.9 fL [facility] nRBC % Auto 0.0 % [facility] nRBC Abs Auto 0.000 0.000 - 0.000 x10(3)/mcL [facility] Blood 06/29/2023 2:39 AM EDT 06/29/2023 3:33 AM EDT Narrative Resulting Agency Comment Spec In Lab Terrence Keating MD HEMATOLOGY ORDERABLE S [facility] [place] [address] * (ABNORMAL) Heparin (unfractionated) Level (06/29/2023 2:39 AM EDT) Heparin UFH Level 1.77(Crit ical) IU/mL [facility] Comment: Specimen drawn more [...] Lab Ailyn Irvin MD HEMATOLOGY ORDERABLE S [facility] [place] [address] * (ABNORMAL) Basic Metabolic Panel (non-fasting) (06/29/2023 2:39 AM EDT) Glucose Lvl 100 65 - 199 mg/dL [facility] Comment:Diabetes: >=200 mg/d L plus symptoms BUN 21(H) 8 - 18 mg/dL [facility] Creatinine 1.17 0.70 - 1.20 mg/dL [facility] Sodium 138 135 - 145 mmol/L [facility] Potassium 3.9 3.5 - 5.0 mmol/L [facility] Comment: Please note: ??Patients with WBC >100,000 may have falsely elevated Potassium levels. ??For accurate Potassium quantification in these patients send serum separator tube (gold top) for subsequent determinations. ??Contact the Clinical Chemistry Laboratory if there are any questions. Chloride 105 98 - 107 mmol/L [facility] CO2 22 22 - 31 mmol/L [facility] Anion Gap 11 5 - 15 mmol/L [facility] Calcium 9.1 8.5 - 10.5 mg/dL [facility] Estimated GFR 55(L) >=60 mL/min/1. 73 m?? [facility] Comment: This patient's estimated [...] MD CHEMISTRY ORDERABL ES Performing Organization Address [facility] Co de Phone Number [facility] [place] [address] * Phosphorus (06/29/2023 2:39 AM EDT) Phosphorus 4.0 2.5 - 4.5 mg/dL [facility] Blood 06/29/2023 2:39 AM EDT 06/29/2023 3:33 AM EDT Narrative Resulting Agency Comment Spec In Lab Eufemia Copeland MD CHEMISTRY ORDERABL ES Performing Organization Address [facility] de Phone Number [facility] [place] [address] * Magnesium (06/29/2023 2:39 AM EDT) Magnesium 0.92 0.69 - 1.07 mmol/L [facility] Blood 06/29/2023 2:39 AM EDT 06/29/2023 3:33 AM EDT Narrative Resulting Agency Comment Spec In Lab Eufemia Copeland MD CHEMISTRY ORDERABL ES Performing Organization Address [facility] de Phone Number [facility] [place] [address] * US Abdomen Limited (06/28/2023 12:22 PM EDT) WORKSTATION ID [id number] RAD Anatomical Region Laterality Modality Abdomen Ultrasound [...] PM Electronically signed by: Sigrid Owens MD, [facility] ([phone]), at 06/28/2023 2:02 PM Thank you for letting us participate in the care of this patient. If you are a health care provider and have any questions regarding this report, please contact the number above. For patients who have questions, please contact the health manager medicare that requested 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 ?Sigrid Owens, [facility] [employer] Supervisor Electronically Signed Final Report ?? 06/28/2023 02:08 pm Narrative 06/28/2023 2:08 PM EDT Abdominal ? (Signed Final 06/28/2023 02:08 pm) PATIENT INFO: ID #: ? [id number] ?: ??[birth year] (53 yrs)(F) Name: ? LOIDA ?Visit Date: 06/28/2023 12:20 pm ? JUDE PERFORMED BY: Attending: ?Sigrid Owens MD Resident: ? Rafaela Huddleston MD Performed By: ? Rick STANFORD, ??Deena Referred By: ?AILYN IRVIN Location: ? [place] SERVICE(S) PROVIDED: UABDLIM - Abdominal Limited Survey Single ? [id number] Organ or Quadrant - [id number] INDICATIONS: RUQ pain, R/o Gall bladder colic, [...] 06/28/2023 02:08 pm) PATIENT INFO: ID #: [id number] : [birth year] (53 yrs)(F) Name: LOIDA Visit Date: 06/28/2023 12:20 pm JUDE PERFORMED BY: Attending: Sigrid Owens MD Resident: Rafaela Huddleston MD Performed By: Deena Cabrera RDMS Referred By: AILYN IRVIN Location: [place] SERVICE(S) PROVIDED: UABDLIM - Abdominal Limited Survey Single 69852 Organ or Quadrant - [id number] INDICATIONS: RUQ pain, R/o Gall bladder colic, [...] PM Electronically signed by: Sigrid Owens MD, [facility] ([phone]), at 06/28/2023 2:02 PM Thank you for letting us participate in the care of this patient. If you are a health care provider and have any questions regarding this report, please contact the number above. For patients who have questions, please contact the health manager medicare that requested 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 Sigrid Owens, E [employer] Supervisor Electronically Signed Final Report 06/28/2023 02:08 pm Ailyn Irvin MD IMG US GEN ORDERABLE S * Duplex Study Visceral Arteries, Comp (06/28/2023 10:19 AM EDT) VB Text Report Department: Vascular Surgery Lab Patient: [id number] (LOIDA ROQUE) CPT: [id number] Referring Physician: HEIDY SULLIVAN ?? Indications: abdominal pain, ? patency/stenosi s Findings: Unilateral ? Waveform ? PSV cm/s ??EDV cm/s ??Patent ?? Dary Visceral Aorta ? 80 ?16 ? Celiac Artery, Proximal ??[place] ? 119 ?26 ? Celiac Artery, Mid ? [place] ? 115 ?21 ? Celiac Artery, Distal ? No Vis ?? Sup Mes Artery Proximal ??Biphasic ?427 ?91 ? Sup Mes Artery Middle ?[place] ? 100 ?17 ? Sup Mes Artery Distal ?[place] ?64 ?15 ? Hepatic Artery ?No Vis [...] 1:52 AM EDT) Neutrophils % 55.3 % [facility] Neutr Abs (ANC) 4.46 1.70 - 6.10 x10(3)/[facility] LABORATORY Lymphocytes % 30.6 % [facility] Lymphocytes Abs 2.5 0.9 - 3.2 x10(3)/[facility] LABORATORY Monocytes % 8.8 % [facility] Monocyte Abs 0.7 0.3 - 0.9 x10(3)/[facility] LABORATORY Eosinophils % 4.6 % [facility] Eosinophils Abs 0.4 0.0 - 0.4 x10(3)/[facility] LABORATORY Basophils % 0.5 % [facility] Basophils Abs 0.0 0.0 - 0.1 x10(3)/[facility] LABORATORY Immature Gran % 0.20 % [facility] Comment: Immature granulocytes(IG's)percentage and absolute count will include metamyelocytes, myelocytes, and promyelocytes. Blood smears from CBCs yielding IG's will be scanned manually for concordance. If this scan disagrees with the automated IG or if promyelocytes are noted, a manual differential will be performed. Shonda Gran Abs 0.02 0.00 - 0.04 x10(3)/[facility] LABORATORY Blood 06/28/2023 1:52 AM EDT 06/28/2023 2:05 AM EDT Narrative Resulting Agency Comment Spec In Lab Terrence Keating MD HEMATOLOGY ORDERABLE S [facility] [place] [address] * Hemogram (06/28/2023 1:52 AM EDT) WBC 8.1 4.0 - 9.5 x10(3)/[facility] LABORATORY RBC 4.30 4.00 - 5.21 x10(6)/[facility] LABORATORY Hemoglobin 13.4 11.7 - 15.5 g/dL [facility] Hematocrit 40.6 35.7 - 45.8 % [facility] MCV 94.4 82.6 - 94.4 [facility] LABORATORY MCH 31.2 27.1 - 32.0 pg [facility] MCHC 33.0 31.7 - 35.0 g/dL [facility] Platelets 238 145 - 357 x10(3)/[facility] LABORATORY RDWSD 45.7 37.0 - 46.0 [facility] LABORATORY RDWCV 13.2 11.5 - 14.1 % [facility] MPV 10.8 7.6 - 12.9 [facility] LABORATORY nRBC % Auto 0.0 % [facility] nRBC Abs Auto 0.000 0.000 - 0.000 x10(3)/[facility] LABORATORY Blood 06/28/2023 1:52 AM EDT 06/28/2023 2:05 AM EDT Narrative Resulting Agency Comment Spec In Lab Terrence Keating MD HEMATOLOGY ORDERABLE S [facility] [place] [address] * (ABNORMAL) Basic Metabolic Panel (non-fasting) (06/28/2023 1:52 AM EDT) Glucose Lvl 101 65 - 199 mg/dL [facility] Comment:Diabetes: >=200 mg/d L plus symptoms BUN 24(H) 8 - 18 mg/dL [facility] Creatinine 1.21(H) 0.70 - 1.20 mg/dL [facility] Sodium 138 135 - 145 mmol/L [facility] Potassium 4.0 3.5 - 5.0 mmol/L [facility] Comment: Please note: ??Patients with WBC >100,000 may have falsely elevated Potassium levels. ??For accurate Potassium quantification in these patients send serum separator tube (gold top) for subsequent determinations. ??Contact the Clinical Chemistry Laboratory if there are any questions. Chloride 105 98 - 107 mmol/L [facility] CO2 21(L) 22 - 31 mmol/L [facility] Anion Gap 12 5 - 15 mmol/L [facility] Calcium 9.0 8.5 - 10.5 mg/dL [facility] LABORATORY Estimated GFR 53(L) >=60 mL/min/1. 73 m?? [facility] Comment: This patient's estimated [...] MD CHEMISTRY ORDERABL ES Performing Organization Address [facility]/ZIP Co de Phone Number [facility] [place] [address] * Phosphorus (06/28/2023 1:52 AM EDT) Phosphorus 4.5 2.5 - 4.5 mg/dL [facility] Blood 06/28/2023 1:52 AM EDT 06/28/2023 2:05 AM EDT Narrative Resulting Agency Comment Spec In Lab Eufemia Copeland MD CHEMISTRY ORDERABL ES Performing Organization Address City/[facility]/ZIP Co de Phone Number [facility] [place] [address] * Magnesium (06/28/2023 1:52 AM EDT) Magnesium 0.93 0.69 - 1.07 mmol/L [facility] Blood 06/28/2023 1:52 AM EDT 06/28/2023 2:05 AM EDT Narrative Resulting Agency Comment Spec In Lab Eufemia Copeland MD CHEMISTRY ORDERABL ES [facility] [place] [address] * (ABNORMAL) Basic Metabolic Panel (non-fasting) (06/27/2023 8:06 PM EDT) Glucose Lvl 94 65 - 199 mg/dL [facility] Comment:Diabetes: >=200 mg/d L plus symptoms BUN 24(H) 8 - 18 mg/dL [facility] Creatinine 1.28(H) 0.70 - 1.20 mg/dL [facility] Sodium 141 135 - 145 mmol/L [facility] Potassium 4.3 3.5 - 5.0 mmol/L [facility] Comment: Please note: ??Patients with WBC >100,000 may have falsely elevated Potassium levels. ??For accurate Potassium quantification in these patients send serum separator tube (gold top) for subsequent determinations. ??Contact the Clinical Chemistry Laboratory if there are any questions. Chloride 106 98 - 107 mmol/L [facility] CO2 24 22 - 31 mmol/L [facility] Anion Gap 11 5 - 15 mmol/L [facility] Calcium 9.3 8.5 - 10.5 mg/dL [facility] Estimated GFR 50(L) >=60 mL/min/1. 73 m?? [facility] Comment: This patient's estimated [...] Irvin MD CHEMISTRY ORDERABLES Performing Organization Address City/[facility]/ZIP Co de Phone Number [facility] [place] [address] * (ABNORMAL) Hepatic Function Panel (06/27/2023 4:34 AM EDT) Total Protein 6.4 6.1 - 8.0 g/dL [facility] Albumin 3.8 3.2 - 5.2 g/dL [facility] AST 21 0 - 30 unit/L [facility] ALT 22 0 - 30 unit/L [facility] Alk Phos 56 35 - 105 unit/L [facility] Total Bilirubin <0.2(L) 0.2 - 1.3 mg/dL [facility] Bili, Direct <0.1 0.0 - 0.3 mg/dL [facility] Blood Venous Draw / Unknown 06/27/2023 4:34 AM EDT 06/27/2023 4:53 AM EDT Narrative Resulting Agency Comment Spec In Lab Ailyn Irvin MD CHEMISTRY ORDERABLES Performing Organization Address City/[facility]/ZIP Co de Phone Number [facility] [place] [address] * Differential, Automated (06/27/2023 4:34 AM EDT) Neutrophils % 52.7 % [facility] Neutr Abs (ANC) 4.01 1.70 - 6.10 x10(3)/[facility] LABORATORY Lymphocytes % 33.8 % [facility] Lymphocytes Abs 2.6 0.9 - 3.2 x10(3)/[facility] LABORATORY Monocytes % 8.8 % [facility] Monocyte Abs 0.7 0.3 - 0.9 x10(3)/[facility] LABORATORY Eosinophils % 3.8 % [facility] Eosinophils Abs 0.3 0.0 - 0.4 x10(3)/[facility] LABORATORY Basophils % 0.5 % [facility] Basophils Abs 0.0 0.0 - 0.1 x10(3)/[facility] LABORATORY Immature Gran % 0.40 % [facility] Comment: Immature granulocytes(IG's)percentage and absolute count will include metamyelocytes, myelocytes, and promyelocytes. Blood smears from CBCs yielding IG's will be scanned manually for concordance. If this scan disagrees with the automated IG or if promyelocytes are noted, a manual differential will be performed. Shonda Gran Abs 0.03 0.00 - 0.04 x10(3)/[facility] LABORATORY Blood 06/27/2023 4:34 AM EDT 06/27/2023 4:51 AM EDT Narrative Resulting Agency Comment Spec In Lab Terrence Keating MD HEMATOLOGY ORDERABLE S [facility] [place] [address] * Hemogram (06/27/2023 4:34 AM EDT) WBC 7.6 4.0 - 9.5 x10(3)/[facility] LABORATORY RBC 4.15 4.00 - 5.21 x10(6)/[facility] LABORATORY Hemoglobin 12.9 11.7 - 15.5 g/dL [facility] Hematocrit 39.0 35.7 - 45.8 % [facility] MCV 94.0 82.6 - 94.4 fL [facility] MCH 31.1 27.1 - 32.0 pg [facility] MCHC 33.1 31.7 - 35.0 g/dL [facility] Platelets 245 145 - 357 x10(3)/[facility] LABORATORY RDWSD 45.2 37.0 - 46.0 fL [facility] RDWCV 13.2 11.5 - 14.1 % [facility] MPV 11.2 7.6 - 12.9 fL [facility] nRBC % Auto 0.0 % [facility] nRBC Abs Auto 0.000 0.000 - 0.000 x10(3)/[facility] LABORATORY Blood 06/27/2023 4:34 AM EDT 06/27/2023 4:51 AM EDT Narrative Resulting Agency Comment Spec In Lab Terrence Keating MD HEMATOLOGY ORDERABLE S [facility] [place] [address] * (ABNORMAL) Basic Metabolic Panel (non-fasting) (06/27/2023 4:34 AM EDT) Glucose Lvl 99 65 - 199 mg/dL [facility] Comment:Diabetes: >=200 mg/d L plus symptoms BUN 26(H) 8 - 18 mg/dL [facility] Creatinine 1.22(H) 0.70 - 1.20 mg/dL [facility] Sodium 138 135 - 145 mmol/L [facility] Potassium 3.9 3.5 - 5.0 mmol/L [facility] Comment: Please note: ??Patients with WBC >100,000 may have falsely elevated Potassium levels. ??For accurate Potassium quantification in these patients send serum separator tube (gold top) for subsequent determinations. ??Contact the Clinical Chemistry Laboratory if there are any questions. Chloride 105 98 - 107 mmol/L [facility] CO2 22 22 - 31 mmol/L [facility] Anion Gap 11 5 - 15 mmol/L [facility] Calcium 9.1 8.5 - 10.5 mg/dL [facility] Estimated GFR 53(L) >=60 mL/min/1. 73 m?? [facility] Comment: This patient's estimated [...] MD CHEMISTRY ORDERABL ES Performing Organization Address [facility]/ZIP Co de Phone Number [facility] [place] [address] * (ABNORMAL) Phosphorus (06/27/2023 4:34 AM EDT) Phosphorus 4.7(H) 2.5 - 4.5 mg/dL [facility] Blood 06/27/2023 4:34 AM EDT 06/27/2023 4:51 AM EDT Narrative Resulting Agency Comment Spec In Lab Eufemia Copeland MD CHEMISTRY ORDERABL ES Performing Organization Address City/[facility]/ZIP Co de Phone Number [facility] [place] [address] * Magnesium (06/27/2023 4:34 AM EDT) Magnesium 0.90 0.69 - 1.07 mmol/L [facility] Blood 06/27/2023 4:34 AM EDT 06/27/2023 4:51 AM EDT Narrative Resulting Agency Comment Spec In Lab Eufemia Copeland MD CHEMISTRY ORDERABL ES [facility] [place] [address] * (ABNORMAL) Basic Metabolic Panel (non-fasting) (06/26/2023 4:58 PM EDT) Pathologist [facility] Glucose Lvl 106 65 - 199 mg/dL [facility] Comment:Diabetes: >=200 mg/d L plus symptoms BUN 24(H) 8 - 18 mg/dL [facility] Creatinine 1.23(H) 0.70 - 1.20 mg/dL [facility] Sodium 138 135 - 145 mmol/L [facility] Potassium 4.2 3.5 - 5.0 mmol/L [facility] Comment: Please note: ??Patients with WBC >100,000 may have falsely elevated Potassium levels. ??For accurate Potassium quantification in these patients send serum separator tube (gold top) for subsequent determinations. ??Contact the Clinical Chemistry Laboratory if there are any questions. Chloride 104 98 - 107 mmol/L [facility] CO2 21(L) 22 - 31 mmol/L [facility] Anion Gap 13 5 - 15 mmol/L [facility] Calcium 9.1 8.5 - 10.5 mg/dL [facility] Estimated GFR 52(L) >=60 mL/min/1. 73 m?? [facility] Comment: This patient's estimated [...] Irvin MD CHEMISTRY ORDERABLES Performing Organization Address City/[facility]/ZIP Co de Phone Number [facility] [place] [address] * Urinalysis Microscopic Exam (06/26/2023 11:09 AM EDT) RBC UA 0 0 - 4 /HPF [facility] WBC UA 3 0 - 5 /HPF [facility] Squam Epith UA 1 <=4 /HPF [facility] Hyaline Cast UA 1 0 - 2 /LPF [facility] Clean Catch Urine 06/26/2023 11:09 AM EDT 06/26/2023 5:45 PM EDT Narrative Resulting Agency Comment Spec In Lab Ailyn Irvin MD URINE ORDERABLES Performing Organization Address [facility] Co de Phone Number [facility] [place] [address] * (ABNORMAL) Urinalysis with reflex Culture (06/26/2023 11:09 AM EDT) Glucose UA Negative Negative mg/dL [facility] Protein UA Negative Negative mg/dL [facility] Bilirubin UA Negative Negative mg/dL [facility] Comment: Clinical correlation required for positive Urine Bilirubin results as false positive may occur with some drugs and drug related products. If a false positive is suspected a serum total bilirubin should be considered if clinically indicated. Urobilinogen UA Normal Normal mg/dL [facility] pH UA 6.0 5.0 - 8.0 [facility] Blood UA Negative Negative mg/dL [facility] Ketones UA Negative Negative mg/dL [facility] Nitrite UA Negative Negative [facility] Leukocytes UA Trace(A) Negative mcL [facility] Appearance UA Clear Clear [facility] Spec [place] UA 1.013 1.005 - 1.030 [facility] Color UA Yellow Yellow [facility] Culture Reflexed No [facility] Clean Catch Urine 06/26/2023 11:09 AM EDT 06/26/2023 5:45 PM EDT Narrative Resulting Agency Comment Spec In Lab Ailyn Irvin MD URINE ORDERABLES Performing Organization Address City/[facility] Co de Phone Number [facility] [place] [address] * EKG 12 Lead (06/26/2023 6:04 AM EDT) Ventricular rate 46 BPM MUSE SYSTEM Atrial Rate 46 BPM MUSE SYSTEM P-R Interval 204 ms MUSE SYSTEM QRS Duration 90 ms MUSE SYSTEM Q-T Interval 466 ms MUSE SYSTEM QTC Calculated (Bezet) 407 ms MUSE SYSTEM Calculated P [place] 38 degrees MUSE SYSTEM Calculated R [place] 48 degrees MUSE SYSTEM Calculated T [place] 13 degrees MUSE SYSTEM INTERPRETATION Sinus bradycardia Nonspecific ST and T wave abnormality Abnormal ECG When compared with ECG of 23-JUN-2023 09:54, No significant change was found Confirmed by MD Dalia, Willy Huerta ([id number]) on 06/29/2023 6:09:20 AM MUSE SYSTEM 06/26/2023 6:04 AM EDT 06/29/2023 6:09 AM EDT Eufemia Copeland MD ECG ORDERABLES Performing Organization Address City/[facility]/ZIP Co de Phone Number MUSE SYSTEM * Differential, Automated (06/26/2023 4:06 AM EDT) Neutrophils % 55.3 % [facility] Neutr Abs (ANC) 4.63 1.70 - 6.10 x10(3)/[facility] LABORAT[facility] Lymphocytes % 32.6 % [facility] Lymphocytes Abs 2.7 0.9 - 3.2 x10(3)/[facility] LABORATORY Monocytes % 8.2 % [facility] Monocyte Abs 0.7 0.3 - 0.9 x10(3)/[facility] LABORAT[facility] Eosinophils % 3.2 % [facility] Eosinophils Abs 0.3 0.0 - 0.4 x10(3)/[facility] LABOR[facility] Basophils % 0.5 % [facility] Basophils Abs 0.0 0.0 - 0.1 x10(3)/[facility] LABOR[facility] Immature Gran % 0.20 % [facility] Comment: Immature granulocytes(IG's)percentage and absolute count will include metamyelocytes, myelocytes, and promyelocytes. Blood smears from CBCs yielding IG's will be scanned manually for concordance. If this scan disagrees with the automated IG or if promyelocytes are noted, a manual differential will be performed. Shonda Gran Abs 0.02 0.00 - 0.04 x10(3)/[facility] LAB[facility] Blood 06/26/2023 4:06 AM EDT 06/26/2023 4:18 AM EDT Narrative Resulting Agency Comment Spec In Lab Terrence Keating MD HEMATOLOGY ORDERABLE S [facility] [place] [address] * (ABNORMAL) Hemogram (06/26/2023 4:06 AM EDT) WBC 8.4 4.0 - 9.5 x10(3)/[facility] LABOR[facility] RBC 4.52 4.00 - 5.21 x10(6)/[facility] LAB[facility] Hemoglobin 14.0 11.7 - 15.5 g/dL [facility] Hematocrit 43.6 35.7 - 45.8 % [facility] MCV 96.5(H) 82.6 - 94.4 [facility] LABORAT[facility] MCH 31.0 27.1 - 32.0 pg [facility] MCHC 32.1 31.7 - 35.0 g/dL [facility] Platelets 258 145 - 357 x10(3)/[facility] LABORATORY RDWSD 46.7(H) 37.0 - 46.0 [facility] RDWCV 13.2 11.5 - 14.1 % [facility] MPV 11.1 7.6 - 12.9 [facility] LAB[facility] nRBC % Auto 0.0 % [facility] nRBC Abs Auto 0.000 0.000 - 0.000 x10(3)/[facility] Blood 06/26/2023 4:06 AM EDT 06/26/2023 4:18 AM EDT Narrative Resulting Agency Comment Spec In Lab Terrence Keating MD HEMATOLOGY ORDERABLE S Performing Organization Address City/State/[facility] Co de Phone Number [facility] [place] [address] * (ABNORMAL) Basic Metabolic Panel (non-fasting) (06/26/2023 4:06 AM EDT) Glucose Lvl 100 65 - 199 mg/dL [facility] Comment:Diabetes: >=200 mg/d L plus symptoms BUN 25(H) 8 - 18 mg/dL [facility] Creatinine 1.24(H) 0.70 - 1.20 mg/dL [facility] Sodium 135 135 - 145 mmol/L [facility] Potassium 4.2 3.5 - 5.0 mmol/L [facility] Comment: Please note: ??Patients with WBC >100,000 may have falsely elevated Potassium levels. ??For accurate Potassium quantification in these patients send serum separator tube (gold top) for subsequent determinations. ??Contact the Clinical Chemistry Laboratory if there are any questions. Chloride 104 98 - 107 mmol/L [facility] CO2 19(L) 22 - 31 mmol/L [facility] Anion Gap 12 5 - 15 mmol/L [facility] Calcium 9.6 8.5 - 10.5 mg/dL [facility] Estimated GFR 52(L) >=60 mL/min/1. 73 m?? [facility] Comment: This patient's estimated [...] MD CHEMISTRY ORDERABL ES Performing Organization Address [facility] Co de Phone Number [facility] [place] [address] * Phosphorus (06/26/2023 4:06 AM EDT) Phosphorus 4.3 2.5 - 4.5 mg/dL [facility] Blood 06/26/2023 4:06 AM EDT 06/26/2023 4:18 AM EDT Narrative Resulting Agency Comment Spec In Lab Eufemia Copeland MD CHEMISTRY ORDERABL ES Performing Organization Address [facility]/ZIP Co de Phone Number [facility] [place] [address] * Magnesium (06/26/2023 4:06 AM EDT) Magnesium 0.96 0.69 - 1.07 mmol/L [facility] Blood 06/26/2023 4:06 AM EDT 06/26/2023 4:18 AM EDT Narrative Resulting Agency Comment Spec In Lab Eufemia Copeland MD CHEMISTRY ORDERABL ES [facility] [place] [address] * Differential, Automated (06/25/2023 1:50 AM EDT) [facility] Neutrophils % 56.2 % [facility] Neutr Abs (ANC) 4.06 1.70 - 6.10 x10(3)/[facility] LAB[facility] Lymphocytes % 30.5 % [facility] Lymphocytes Abs 2.2 0.9 - 3.2 x10(3)/[facility] LAB[facility] Monocytes % 8.7 % [facility] Monocyte Abs 0.6 0.3 - 0.9 x10(3)/[facility] LAB[facility] Eosinophils % 3.9 % [facility] Eosinophils Abs 0.3 0.0 - 0.4 x10(3)/[facility] Basophils % 0.6 % [facility] Basophils Abs 0.0 0.0 - 0.1 x10(3)/[facility] LABOR[facility] Immature Gran % 0.10 % [facility] Comment: Immature granulocytes(IG's)percentage and absolute count will include metamyelocytes, myelocytes, and promyelocytes. Blood smears from CBCs yielding IG's will be scanned manually for concordance. If this scan disagrees with the automated IG or if promyelocytes are noted, a manual differential will be performed. Shonda Gran Abs 0.01 0.00 - 0.04 x10(3)/[facility] Blood 06/25/2023 1:50 AM EDT 06/25/2023 2:16 AM EDT Narrative Resulting Agency Comment Spec In Lab Terrence Keating MD HEMATOLOGY ORDERABLE S [facility] [place] [address] * Hemogram (06/25/2023 1:50 AM EDT) WBC 7.2 4.0 - 9.5 x10(3)/[facility] LAB[facility] RBC 4.57 4.00 - 5.21 x10(6)/[facility] Hemoglobin 14.4 11.7 - 15.5 g/dL [facility] Hematocrit 42.9 35.7 - 45.8 % [facility] MCV 93.9 82.6 - 94.4 [facility] MCH 31.5 27.1 - 32.0 pg [facility] MCHC 33.6 31.7 - 35.0 g/dL [facility] Platelets 241 145 - 357 x10(3)/[facility] LAB[facility] RDWSD 44.7 37.0 - 46.0 [facility] RDWCV 13.2 11.5 - 14.1 % [facility] MPV 11.5 7.6 - 12.9 [facility] nRBC % Auto 0.0 % [facility] nRBC Abs Auto 0.000 0.000 - 0.000 x10(3)/[facility] Blood 06/25/2023 1:50 AM EDT 06/25/2023 2:16 AM EDT Narrative Resulting Agency Comment Spec In Lab Terrence Keating MD HEMATOLOGY ORDERABLE S [facility] [place] [address] * (ABNORMAL) Basic Metabolic Panel (non-fasting) (06/25/2023 1:50 AM EDT) Glucose Lvl 99 65 - 199 mg/dL [facility] Comment:Diabetes: >=200 mg/d L plus symptoms BUN 20(H) 8 - 18 mg/dL [facility] Creatinine 1.59(H) 0.70 - 1.20 mg/dL [facility] Sodium 139 135 - 145 mmol/L [facility] Potassium 3.4(L) 3.5 - 5.0 mmol/L [facility] Comment: Please note: ??Patients with WBC >100,000 may have falsely elevated Potassium levels. ??For accurate Potassium quantification in these patients send serum separator tube (gold top) for subsequent determinations. ??Contact the Clinical Chemistry Laboratory if there are any questions. Chloride 102 98 - 107 mmol/L [facility] CO2 25 22 - 31 mmol/L [facility] Anion Gap 12 5 - 15 mmol/L [facility] Calcium 9.4 8.5 - 10.5 mg/dL [facility] Estimated GFR 38(L) >=60 mL/min/1. 73 m?? [facility] Comment: This patient's estimated [...] Lab Eufemia Copeland MD CHEMISTRY ORDERABL ES [facility] [place] [address] * Phosphorus (06/25/2023 1:50 AM EDT) Phosphorus 4.4 2.5 - 4.5 mg/dL [facility] Blood 06/25/2023 1:50 AM EDT 06/25/2023 2:16 AM EDT Narrative Resulting Agency Comment Spec In Lab Eufemia Copeland MD CHEMISTRY ORDERABL ES [facility] [place] [address] * Magnesium (06/25/2023 1:50 AM EDT) [facility] Magnesium 0.99 0.69 - 1.07 mmol/L [facility] Blood 06/25/2023 1:50 AM EDT 06/25/2023 2:16 AM EDT Narrative Resulting Agency Comment Spec In Lab Eufemia Copeland MD CHEMISTRY ORDERABL ES Performing Organization Address [facility]/ZIP Co de Phone Number [facility] [place] [address] * (ABNORMAL) pro-Brain Natriuretic Peptide (06/24/2023 3:38 AM EDT) Pathologist [facility] ProBNP 1,239(H) <=124 pg/mL [facility] Blood Venous Draw / Unknown 06/24/2023 3:38 AM EDT 06/24/2023 3:49 AM EDT Narrative Resulting Agency Comment Spec In Lab Ailyn Irvin MD CHEMISTRY ORDERABLES Performing Organization Address [facility]/ZIP Co de Phone Number [facility] [place] [address] * Differential, Automated (06/24/2023 3:38 AM EDT) Pathologist [facility] Neutrophils % 51.6 % [facility] Neutr Abs (ANC) 3.54 1.70 - 6.10 x10(3)/[facility] Lymphocytes % 36.0 % [facility] Lymphocytes Abs 2.5 0.9 - 3.2 x10(3)/[facility] Monocytes % 7.8 % [facility] Monocyte Abs 0.5 0.3 - 0.9 x10(3)/[facility] Eosinophils % 3.6 % [facility] Eosinophils Abs 0.2 0.0 - 0.4 x10(3)/[facility] [facility] Basophils % 0.7 % [facility] Basophils Abs 0.0 0.0 - 0.1 x10(3)/[facility] Immature Gran % 0.30 % [facility] Comment: Immature granulocytes(IG's)percentage and absolute count will include metamyelocytes, myelocytes, and promyelocytes. Blood smears from CBCs yielding IG's will be scanned manually for concordance. If this scan disagrees with the automated IG or if promyelocytes are noted, a manual differential will be performed. Shonda Gran Abs 0.02 0.00 - 0.04 x10(3)/[facility] Blood 06/24/2023 3:38 AM EDT 06/24/2023 3:49 AM EDT Narrative Resulting Agency Comment Spec In Lab Terrence Keating MD HEMATOLOGY ORDERABLE S [facility] [place] [address] * Hemogram (06/24/2023 3:38 AM EDT) WBC 6.9 4.0 - 9.5 x10(3)/[facility] RBC 4.36 4.00 - 5.21 x10(6)/[facility] Hemoglobin 13.6 11.7 - 15.5 g/dL [facility] Hematocrit 40.7 35.7 - 45.8 % [facility] MCV 93.3 82.6 - 94.4 fL [facility] MCH 31.2 27.1 - 32.0 pg [facility] MCHC 33.4 31.7 - 35.0 g/dL [facility] Platelets 220 145 - 357 x10(3)/[facility] RDWSD 44.5 37.0 - 46.0 fL [facility] RDWCV 13.0 11.5 - 14.1 % [facility] MPV 10.8 7.6 - 12.9 fL [facility] nRBC % Auto 0.0 % [facility] nRBC Abs Auto 0.000 0.000 - 0.000 x10(3)/[facility] Blood 06/24/2023 3:38 AM EDT 06/24/2023 3:49 AM EDT Narrative Resulting Agency Comment Spec In Lab Terrence Keating MD HEMATOLOGY ORDERABLE S Performing Organization Address City/State/[facility] Co de Phone Number [facility] [place] [address] * Heparin (unfractionated) Level (06/24/2023 3:38 AM EDT) Heparin UFH Level 0.44 IU/mL [facility] Comment: Heparin (anti-Xa) levels [...] Lab Terrence Keating MD HEMATOLOGY ORDERABLE S [facility] [place] [address] * (ABNORMAL) Basic Metabolic Panel (non-fasting) (06/24/2023 3:38 AM EDT) Glucose Lvl 96 65 - 199 mg/dL [facility] Comment:Diabetes: >=200 mg/d L plus symptoms BUN 20(H) 8 - 18 mg/dL [facility] Creatinine 1.14 0.70 - 1.20 mg/dL [facility] Sodium 138 135 - 145 mmol/L [facility] Potassium 4.2 3.5 - 5.0 mmol/L [facility] Comment: Please note: ??Patients with WBC >100,000 may have falsely elevated Potassium levels. ??For accurate Potassium quantification in these patients send serum separator tube (gold top) for subsequent determinations. ??Contact the Clinical Chemistry Laboratory if there are any questions. Chloride 104 98 - 107 mmol/L [facility] CO2 21(L) 22 - 31 mmol/L [facility] Anion Gap 13 5 - 15 mmol/L [facility] Calcium 9.1 8.5 - 10.5 mg/dL [facility] Estimated GFR 57(L) >=60 mL/min/1. 73 m?? [facility] Comment: This patient's estimated [...] MD CHEMISTRY ORDERABL ES Performing Organization Address [facility]/ZIP Co de Phone Number [facility] [place] [address] * Phosphorus (06/24/2023 3:38 AM EDT) Phosphorus 4.1 2.5 - 4.5 mg/dL [facility] Blood 06/24/2023 3:38 AM EDT 06/24/2023 3:49 AM EDT Narrative Resulting Agency Comment Spec In Lab Eufemia Copeland MD CHEMISTRY ORDERABL ES Performing Organization Address [facility] Co de Phone Number [facility] [place] [address] * Magnesium (06/24/2023 3:38 AM EDT) Magnesium 0.96 0.69 - 1.07 mmol/L [facility] Blood 06/24/2023 3:38 AM EDT 06/24/2023 3:49 AM EDT Narrative Resulting Agency Comment Spec In Lab Eufemia Copeland MD CHEMISTRY ORDERABL ES Performing Organization Address [facility] Co de Phone Number [facility] [place] [address] * Heparin (unfractionated) Level (06/23/2023 9:24 PM EDT) Heparin UFH Level 0.51 IU/mL [facility] Comment: Heparin (anti-Xa) levels [...] MD HEMATOLOGY ORDERABLE S Performing Organization Address City/State/[facility] Co de Phone Number [facility] [place] [address] * Duplex Study Visceral Arteries, Comp (06/23/2023 3:36 PM EDT) VB Text Report Department: Vascular Surgery Lab Patient: [id number] (LOIDA ROQUE) CPT: [id number] Referring Physician: AILYN IRVIN ?? Phone: Indications: [...] PM EDT) Heparin UFH Level 0.90 IU/mL [facility] Comment: Heparin (anti-Xa) levels [...] MD HEMATOLOGY ORDERABLE S Performing Organization Address City/[facility]/ZIP Co de Phone Number [facility] [place] [address] * EKG 12 Lead (06/23/2023 9:54 AM EDT) Ventricular rate 48 BPM MUSE SYSTEM Atrial Rate 48 BPM MUSE SYSTEM P-R Interval 192 ms MUSE SYSTEM QRS Duration 92 ms MUSE SYSTEM Q-T Interval 462 ms MUSE SYSTEM QTC Calculated (Bezet) 412 ms MUSE SYSTEM Calculated P [place] 21 degrees MUSE SYSTEM Calculated R [place] 20 degrees MUSE SYSTEM Calculated T [place] 16 degrees MUSE SYSTEM INTERPRETATION Sinus bradycardia Nonspecific ST and T wave abnormality Abnormal ECG When compared with ECG of 22-JUN-2023 11:13, Criteria for Septal infarct are no longer Present No significant change was found Confirmed by MD [place], Gus ([id number]) on 06/23/2023 12:59:50 PM MUSE SYSTEM 06/23/2023 9:54 AM EDT 06/23/2023 12:59 PM EDT Ailyn Irvin MD ECG ORDERABLES Performing Organization Address [facility] Co de Phone Number MUSE SYSTEM * Differential, Automated (06/23/2023 4:12 AM EDT) Neutrophils % 52.8 % [facility] Neutr Abs (ANC) 4.30 1.70 - 6.10 x10(3)/[facility] Lymphocytes % 33.9 % [facility] Lymphocytes Abs 2.8 0.9 - 3.2 x10(3)/[facility] Monocytes % 8.3 % [facility] Monocyte Abs 0.7 0.3 - 0.9 x10(3)/[facility] Eosinophils % 3.9 % [facility] Eosinophils Abs 0.3 0.0 - 0.4 x10(3)/[facility] Basophils % 0.7 % [facility] Basophils Abs 0.1 0.0 - 0.1 x10(3)/[facility] Immature Gran % 0.40 % [facility] Comment: Immature granulocytes(IG's)percentage and absolute count will include metamyelocytes, myelocytes, and promyelocytes. Blood smears from CBCs yielding IG's will be scanned manually for concordance. If this scan disagrees with the automated IG or if promyelocytes are noted, a manual differential will be performed. Shonda Gran Abs 0.03 0.00 - 0.04 x10(3)/[facility] Blood 06/23/2023 4:12 AM EDT 06/23/2023 4:38 AM EDT Narrative Resulting Agency Comment Spec In Lab Terrence Keating MD HEMATOLOGY ORDERABLE S Performing Organization Address City/State/[facility] Co de Phone Number [facility] [place] [address] * Hemogram (06/23/2023 4:12 AM EDT) WBC 8.2 4.0 - 9.5 x10(3)/[facility] RBC 4.59 4.00 - 5.21 x10(6)/[facility] Hemoglobin 14.3 11.7 - 15.5 g/dL [facility] Hematocrit 43.1 35.7 - 45.8 % [facility] MCV 93.9 82.6 - 94.4 fL [facility] MCH 31.2 27.1 - 32.0 pg [facility] MCHC 33.2 31.7 - 35.0 g/dL [facility] Platelets 233 145 - 357 x10(3)/[facility] RDWSD 44.2 37.0 - 46.0 fL [facility] RDWCV 13.0 11.5 - 14.1 % [facility] MPV 11.3 7.6 - 12.9 fL [facility] nRBC % Auto 0.0 % [facility] nRBC Abs Auto 0.000 0.000 - 0.000 x10(3)/mcL [facility] Blood 06/23/2023 4:12 AM EDT 06/23/2023 4:38 AM EDT Narrative Resulting Agency Comment Spec In Lab Terrence Keating MD HEMATOLOGY ORDERABLE S Performing Organization Address [facility]/ZIP Co de Phone Number [facility] [place] [address] * (ABNORMAL) Heparin (unfractionated) Level (06/23/2023 4:12 AM EDT) Heparin UFH Level 1.95(Crit ical) IU/mL [facility] Comment: Critical Result called [...] MD HEMATOLOGY ORDERABLE S Performing Organization Address City/[facility]/ZIP Co de Phone Number [facility] [place] [address] * (ABNORMAL) Basic Metabolic Panel (non-fasting) (06/23/2023 4:12 AM EDT) Glucose Lvl 87 65 - 199 mg/dL [facility] Comment:Diabetes: >=200 mg/d L plus symptoms BUN 23(H) 8 - 18 mg/dL [facility] Creatinine 1.08 0.70 - 1.20 mg/dL [facility] Sodium 137 135 - 145 mmol/L [facility] Potassium 3.8 3.5 - 5.0 mmol/L [facility] Comment: Please note: ??Patients with WBC >100,000 may have falsely elevated Potassium levels. ??For accurate Potassium quantification in these patients send serum separator tube (gold top) for subsequent determinations. ??Contact the Clinical Chemistry Laboratory if there are any questions. Chloride 103 98 - 107 mmol/L [facility] CO2 22 22 - 31 mmol/L [facility] Anion Gap 12 5 - 15 mmol/L [facility] Calcium 9.3 8.5 - 10.5 mg/dL [facility] Estimated GFR 61 >=60 mL/min/1. 73 m?? [facility] Comment: This patient's estimated [...] Lab Eufemia Copeland MD CHEMISTRY ORDERABL ES [facility] [place] [address] * Phosphorus (06/23/2023 4:12 AM EDT) Phosphorus 4.5 2.5 - 4.5 mg/dL [facility] Blood 06/23/2023 4:12 AM EDT 06/23/2023 4:38 AM EDT Narrative Resulting Agency Comment Spec In Lab Eufemia Copeland MD CHEMISTRY ORDERABL ES Performing Organization Address [facility] Co de Phone Number [facility] [place] [address] * Magnesium (06/23/2023 4:12 AM EDT) Magnesium 1.03 0.69 - 1.07 mmol/L [facility] Blood 06/23/2023 4:12 AM EDT 06/23/2023 4:38 AM EDT Narrative Resulting Agency Comment Spec In Lab Eufemia Copeland MD CHEMISTRY ORDERABL ES Performing Organization Address [facility] Co de Phone Number [facility] [place] [address] * ECHO LMTD W CONTRAST W LMTD SPEC DOPP COLOR DOPP (06/22/2023 4:25 PM EDT) Anatomical Region Laterality Modality Cardiac Other 06/22/2023 2:49 PM EDT Narrative 06/22/2023 4:42 PM EDT 1 [place] [address] ? Echocardiogram Report Name: LOIDA ROQUE ?Study Date: 06/22/2023 02:49 PM [facility] ??HR: 57 : 1970 ?Height: 162 cm ? Account: [id number] Age: 53 yrs ?Weight: 102 kg Gender: [...] slight decrease in LV systolic function. Procedure Complete-29802. Satisfactory quality. There is normal sinus rhythm. [...] Note Jose Gallegos MD - 06/22/2023 1 [place] [address] Echocardiogram Report Name: LOIDA ROQUE Study Date: 06/22/2023 02:49 PM Patient Location: [place] [address] A HR:57 : 1970 Height: 162 cmAccount: [id number] Age: 53 yrs Weight: 102 kg Gender: [...] a slightdecrease in LV systolic function. Procedure Complete-60383. Satisfactory quality. There is normal sinus rhythm. [...] PM EDT) Troponin-T HS 22(H) <=14 ng/L [facility] [...] can be found in the [facility] Laboratory Test Catalog Troponin - [facility] Test Catalog Reference: Fourth Homer Definition of Myocardial Infarction. Journal of the [place] [employer] 2018;72:8410-7393 Blood 06/22/2023 2:38 PM EDT 06/22/2023 2:50 PM EDT Narrative Resulting Agency Comment Spec In Lab Ailyn Irvin MD CHEMISTRY ORDERABLES [facility] [place] [address] * Duplex for DVT, Arm, Unilat (06/22/2023 2:24 PM EDT) VB Text Report Department: Vascular Surgery Lab Patient: [id number] (LOIDA ROQUE) CPT: [id number] Referring Physician: AILYN IRVIN ?? Phone: Indications: [...] who have questions please contact the health manager medicare that requested 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 ? Electronically signed by: Itz Hayward MD, [facility] ??([phone]), at 06/22/2023 11:47 AM Narrative 06/22/2023 11:47 [...] patients who have questions please contactthe health manager medicare that requested 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 Electronically signed by: Itz Hayward MD, [facility]([phone]), at 06/22/2023 11:47 AM Ailyn Irvin MD IMG DX ORDERABLES * (ABNORMAL) Troponin (06/22/2023 11:24 AM EDT) Troponin-T HS 22(H) <=14 ng/L [facility] [...] can be found in the [facility] Laboratory Test Catalog Troponin - [facility] Test Catalog Reference: Fourth Homer Definition of Myocardial Infarction. Journal of the [place] [employer] 2018;72:9590-1392 Blood 06/22/2023 11:2 4 AM EDT 06/22/2023 11:44 AM EDT Narrative Resulting Agency Comment Spec In Lab Ailyn Irvin MD CHEMISTRY ORDERABLES Performing Organization Address City/[facility]/ZIP Co de Phone Number [facility] [place] [address] * EKG 12 Lead (06/22/2023 11:13 AM EDT) Ventricular rate 63 BPM MUSE SYSTEM Atrial Rate 63 BPM MUSE SYSTEM P-R Interval 162 ms MUSE SYSTEM QRS Duration 86 ms MUSE SYSTEM Q-T Interval 382 ms MUSE SYSTEM QTC Calculated (Bezet) 390 ms MUSE SYSTEM Calculated P [place] 24 degrees MUSE SYSTEM Calculated R [place] 32 degrees MUSE SYSTEM Calculated T [place] -2 degrees MUSE SYSTEM INTERPRETATION Normal sinus rhythm Septal infarct (cited on or before 22-JUN-2023) Possible Lateral infarct , age undetermined ST & T wave abnormality, consider inferolateral ischemia Abnormal ECG When compared with ECG of 22-JUN-2023 10:55, No significant change was found Confirmed by MD Angelo Danette ([id number]) on 06/22/2023 3:56:31 PM MUSE SYSTEM 06/22/2023 11:1 3 AM EDT 06/22/2023 3:56 PM EDT Ailyn Irvin MD ECG ORDERABLES Performing Organization Address [facility]/ZIP Co de Phone Number MUSE SYSTEM * EKG 12 Lead (06/22/2023 10:55 AM EDT) Ventricular rate 56 BPM MUSE SYSTEM Atrial Rate 56 BPM MUSE SYSTEM P-R Interval 168 ms MUSE SYSTEM QRS Duration 88 ms MUSE SYSTEM Q-T Interval 426 ms MUSE SYSTEM QTC Calculated (Bezet) 411 ms MUSE SYSTEM Calculated P [place] 22 degrees MUSE SYSTEM Calculated R [place] 20 degrees MUSE SYSTEM Calculated T [place] 10 degrees MUSE SYSTEM INTERPRETATION Sinus bradycardia Septal infarct , age undetermined ST & T wave abnormality, consider inferolateral ischemia Abnormal ECG When compared with ECG of 21-JUN-2023 10:06, Septal infarct is now Present Confirmed by MD Angelo Danette ([id number]) on 06/22/2023 3:55:53 PM MUSE SYSTEM 06/22/2023 10:5 5 AM EDT 06/22/2023 3:55 PM EDT Ailyn Irvin MD ECG ORDERABLES MUSE SYSTEM * Differential, Automated (06/22/2023 4:34 AM EDT) Neutrophils % 54.4 % [facility] Neutr Abs (ANC) 4.07 1.70 - 6.10 x10(3)/[facility] Lymphocytes % 30.6 % [facility] Lymphocytes Abs 2.3 0.9 - 3.2 x10(3)/[facility] Monocytes % 9.9 % [facility] Monocyte Abs 0.7 0.3 - 0.9 x10(3)/[facility] Eosinophils % 4.3 % [facility] Eosinophils Abs 0.3 0.0 - 0.4 x10(3)/[facility] Basophils % 0.7 % [facility] Basophils Abs 0.0 0.0 - 0.1 x10(3)/[facility] Immature Gran % 0.10 % [facility] Comment: Immature granulocytes(IG's)percentage and absolute count will include metamyelocytes, myelocytes, and promyelocytes. Blood smears from CBCs yielding IG's will be scanned manually for concordance. If this scan disagrees with the automated IG or if promyelocytes are noted, a manual differential will be performed. Shonda Gran Abs 0.01 0.00 - 0.04 x10(3)/[facility] Blood 06/22/2023 4:34 AM EDT 06/22/2023 4:42 AM EDT Narrative Resulting Agency Comment Spec In Lab Terrence Keating MD HEMATOLOGY ORDERABLE S [facility] [place] [address] * (ABNORMAL) Hemogram (06/22/2023 4:34 AM EDT) WBC 7.5 4.0 - 9.5 x10(3)/[facility] RBC 4.04 4.00 - 5.21 x10(6)/[facility] Hemoglobin 12.8 11.7 - 15.5 g/dL [facility] Hematocrit 39.1 35.7 - 45.8 % [facility] MCV 96.8(H) 82.6 - 94.4 [facility] MCH 31.7 27.1 - 32.0 pg [facility] MCHC 32.7 31.7 - 35.0 g/dL [facility] Platelets 225 145 - 357 x10(3)/[facility] RDWSD 45.9 37.0 - 46.0 [facility] RDWCV 13.0 11.5 - 14.1 % [facility] MPV 10.6 7.6 - 12.9 [facility] nRBC % Auto 0.0 % [facility] nRBC Abs Auto 0.000 0.000 - 0.000 x10(3)/[facility] Blood 06/22/2023 4:34 AM EDT 06/22/2023 4:42 AM EDT Narrative Resulting Agency Comment Spec In Lab Terrence Keating MD HEMATOLOGY ORDERABLE S [facility] [place] [address] * (ABNORMAL) Basic Metabolic Panel (non-fasting) (06/22/2023 4:34 AM EDT) Glucose Lvl 94 65 - 199 mg/dL [facility] Comment:Diabetes: >=200 mg/d L plus symptoms BUN 22(H) 8 - 18 mg/dL [facility] Creatinine 1.19 0.70 - 1.20 mg/dL [facility] Sodium 138 135 - 145 mmol/L [facility] Potassium 3.9 3.5 - 5.0 mmol/L [facility] Comment: Please note: ??Patients with WBC >100,000 may have falsely elevated Potassium levels. ??For accurate Potassium quantification in these patients send serum separator tube (gold top) for subsequent determinations. ??Contact the Clinical Chemistry Laboratory if there are any questions. Chloride 102 98 - 107 mmol/L [facility] CO2 19(L) 22 - 31 mmol/L [facility] Anion Gap 17(H) 5 - 15 mmol/L [facility] Calcium 9.4 8.5 - 10.5 mg/dL [facility] Estimated GFR 54(L) >=60 mL/min/1. 73 m?? [facility] Comment: This patient's estimated [...] MD CHEMISTRY ORDERABL ES Performing Organization Address [facility] Co de Phone Number [facility] [place] [address] * (ABNORMAL) Phosphorus (06/22/2023 4:34 AM EDT) Phosphorus 4.9(H) 2.5 - 4.5 mg/dL [facility] Blood 06/22/2023 4:34 AM EDT 06/22/2023 4:42 AM EDT Narrative Resulting Agency Comment Spec In Lab Eufemia Copeland MD CHEMISTRY ORDERABL ES Performing Organization Address [facility] de Phone Number [facility] [place] [address] * Magnesium (06/22/2023 4:34 AM EDT) Magnesium 1.02 0.69 - 1.07 mmol/L [facility] Blood 06/22/2023 4:34 AM EDT 06/22/2023 4:42 AM EDT Narrative Resulting Agency Comment Spec In Lab Eufemia Copeland MD CHEMISTRY ORDERABL ES Performing Organization Address [facility] Co de Phone Number [facility] [place] [address] * CT Abdomen & Pelvis w Contrast [...] who have questions please contact the health manager medicare that requested 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 ? Electronically signed by: RONDA DUFFY MD, [facility] ([phone]), at 06/22/2023 7:59 AM Narrative 06/22/2023 7:59 [...] patients who have questions please contactthe health manager medicare that requested 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 Electronically signed by: RONDA DUFFY MD, [facility]([phone]), at 06/22/2023 7:59 AM Eufemia Copeland MD IMG CT ORDERABLES * EKG 12 Lead (06/21/2023 10:06 AM EDT) Ventricular rate 51 BPM MUSE SYSTEM Atrial Rate 51 BPM MUSE SYSTEM P-R Interval 176 ms MUSE SYSTEM QRS Duration 92 ms MUSE SYSTEM Q-T Interval 450 ms MUSE SYSTEM QTC Calculated (Bezet) 414 ms MUSE SYSTEM Calculated P [place] 17 degrees MUSE SYSTEM Calculated R [place] 35 degrees MUSE SYSTEM Calculated T [place] 13 degrees MUSE SYSTEM INTERPRETATION Sinus bradycardia [...] AM EDT) Troponin-T HS 22(H) <=14 ng/L [facility] [...] can be found in the [facility] Laboratory Test Catalog Troponin - [facility] Test Catalog Reference: Fourth Homer Definition of Myocardial Infarction. Journal of the [place] [employer] 2018;72:1204-1861 Blood 06/21/2023 9:45 AM EDT 06/21/2023 10:08 AM EDT Narrative Resulting Agency Comment Spec In Lab Eufemia Copeland MD CHEMISTRY ORDERABL ES Performing Organization Address [facility] Co de Phone Number [facility] [place] [address] * (ABNORMAL) pro-Brain Natriuretic Peptide (06/21/2023 5:58 AM EDT) ProBNP 1,370(H) <=124 pg/mL [facility] Blood Venous Draw / Unknown 06/21/2023 5:58 AM EDT 06/21/2023 7:28 AM EDT Narrative Resulting Agency Comment Spec In Lab Eufemia Copeland MD CHEMISTRY ORDERABL ES Performing Organization Address [facility] [facility] Co de Phone Number [facility] [place] [address] * Potassium (06/21/2023 5:58 AM EDT) Potassium 4.0 3.5 - 5.0 mmol/L [facility] Comment: Please note: ??Patients [...] MD CHEMISTRY ORDERABL ES Performing Organization Address [facility]/ZIP Co de Phone Number [facility] [place] [address] * Differential, Automated (06/21/2023 3:25 AM EDT) Neutrophils % 54.0 % [facility] Neutr Abs (ANC) 5.02 1.70 - 6.10 x10(3)/mcL [facility] Lymphocytes % 31.8 % [facility] Lymphocytes Abs 3.0 0.9 - 3.2 x10(3)/[facility] Monocytes % 8.9 % [facility] Monocyte Abs 0.8 0.3 - 0.9 x10(3)/[facility] LABOR[facility] Eosinophils % 4.2 % [facility] Eosinophils Abs 0.4 0.0 - 0.4 x10(3)/[facility] LABOR[facility] Basophils % 0.8 % [facility] Basophils Abs 0.1 0.0 - 0.1 x10(3)/[facility] LABOR[facility] Immature Gran % 0.30 % [facility] Comment: Immature granulocytes(IG's)percentage and absolute count will include metamyelocytes, myelocytes, and promyelocytes. Blood smears from CBCs yielding IG's will be scanned manually for concordance. If this scan disagrees with the automated IG or if promyelocytes are noted, a manual differential will be performed. Shonda Gran Abs 0.03 0.00 - 0.04 x10(3)/[facility] LABOR[facility] Blood 06/21/2023 3:25 AM EDT 06/21/2023 3:45 AM EDT Narrative Resulting Agency Comment Spec In Lab Terrence Keating MD HEMATOLOGY ORDERABLE S [facility] [place] [address] * Hemogram (06/21/2023 3:25 AM EDT) WBC 9.3 4.0 - 9.5 x10(3)/[facility] LABORAT[facility] RBC 4.74 4.00 - 5.21 x10(6)/[facility] LAB[facility] Hemoglobin 14.9 11.7 - 15.5 g/dL [facility] Hematocrit 44.2 35.7 - 45.8 % [facility] MCV 93.2 82.6 - 94.4 fL [facility] MCH 31.4 27.1 - 32.0 pg [facility] MCHC 33.7 31.7 - 35.0 g/dL [facility] Platelets 279 145 - 357 x10(3)/[facility] RDWSD 44.7 37.0 - 46.0 fL [facility] RDWCV 13.1 11.5 - 14.1 % [facility] MPV 11.1 7.6 - 12.9 fL [facility] nRBC % Auto 0.0 % [facility] nRBC Abs Auto 0.000 0.000 - 0.000 x10(3)/[facility] Blood 06/21/2023 3:25 AM EDT 06/21/2023 3:45 AM EDT Narrative Resulting Agency Comment Spec In Lab Terrence Keating MD HEMATOLOGY ORDERABLE S [facility] [place] [address] * (ABNORMAL) Basic Metabolic Panel (non-fasting) (06/21/2023 3:25 AM EDT) Glucose Lvl 95 65 - 199 mg/dL [facility] Comment:Diabetes: >=200 mg/d L plus symptoms BUN 27(H) 8 - 18 mg/dL [facility] Creatinine 1.11 0.70 - 1.20 mg/dL [facility] Sodium 138 135 - 145 mmol/L [facility] Potassium Not Perf 3.5 - 5.0 [facility] Comment: Unable to quantitate [...] questions. Chloride 100 98 - 107 mmol/L [facility] CO2 26 22 - 31 mmol/L [facility] Anion Gap 12 5 - 15 mmol/L [facility] Calcium 9.7 8.5 - 10.5 mg/dL [facility] Estimated GFR 59(L) >=60 mL/min/1. 73 m?? [facility] Comment: This patient's estimated [...] MD CHEMISTRY ORDERABL ES Performing Organization Address [facility]/ZIP Co de Phone Number [facility] [place] [address] * (ABNORMAL) Phosphorus (06/21/2023 3:25 AM EDT) Phosphorus 5.1(H) 2.5 - 4.5 mg/dL [facility] Blood 06/21/2023 3:25 AM EDT 06/21/2023 3:45 AM EDT Narrative Resulting Agency Comment Spec In Lab Eufemia Copeland MD CHEMISTRY ORDERABL ES [facility] [place] [address] * Magnesium (06/21/2023 3:25 AM EDT) Magnesium 1.04 0.69 - 1.07 mmol/L [facility] Blood 06/21/2023 3:25 AM EDT 06/21/2023 3:45 AM EDT Narrative Resulting Agency Comment Spec In Lab Eufemia Copeland MD CHEMISTRY ORDERABL ES [facility] [place] [address] * (ABNORMAL) Differential, Automated (06/20/2023 3:32 AM EDT) Pathologist [facility] Neutrophils % 52.5 % [facility] Neutr Abs (ANC) 5.28 1.70 - 6.10 x10(3)/ L [facility] Lymphocytes % 32.4 % [facility] Lymphocytes Abs 3.3(H) 0.9 - 3.2 x10(3)/mc L [facility] Monocytes % 9.7 % [facility] Monocyte Abs 1.0(H) 0.3 - 0.9 x10(3)/ L [facility] Eosinophils % 4.3 % [facility] Eosinophils Abs 0.4 0.0 - 0.4 x10(3)/ L [facility] Basophils % 0.7 % [facility] Basophils Abs 0.1 0.0 - 0.1 x10(3)/mc L [facility] Immature Gran % 0.40 % [facility] Comment: Immature granulocytes(IG's)percentage and absolute count will include metamyelocytes, myelocytes, and promyelocytes. Blood smears from CBCs yielding IG's will be scanned manually for concordance. If this scan disagrees with the automated IG or if promyelocytes are noted, a manual differential will be performed. Shonda Gran Abs 0.04 0.00 - 0.04 x10(3)/mc L [facility] Blood 06/20/2023 3:32 AM EDT 06/20/2023 3:47 AM EDT Narrative Resulting Agency Comment Spec In Lab Terrence Keating MD HEMATOLOGY ORDERABLE S [facility] [place] [address] * (ABNORMAL) Hemogram (06/20/2023 3:32 AM EDT) WBC 10.1(H) 4.0 - 9.5 x10(3)/[facility] LABOR[facility] RBC 4.57 4.00 - 5.21 x10(6)/[facility] LAB[facility] Hemoglobin 14.2 11.7 - 15.5 g/dL [facility] Hematocrit 41.5 35.7 - 45.8 % [facility] MCV 90.8 82.6 - 94.4 [facility] MCH 31.1 27.1 - 32.0 pg [facility] MCHC 34.2 31.7 - 35.0 g/dL [facility] Platelets 253 145 - 357 x10(3)/[facility] LABOR[facility] RDWSD 43.7 37.0 - 46.0 [facility] LAB[facility] RDWCV 13.2 11.5 - 14.1 % [facility] MPV 10.8 7.6 - 12.9 [facility] LABORATORY nRBC % Auto 0.0 % [facility] nRBC Abs Auto 0.000 0.000 - 0.000 x10(3)/[facility] Blood 06/20/2023 3:32 AM EDT 06/20/2023 3:47 AM EDT Narrative Resulting Agency Comment Spec In Lab Terrence Keating MD HEMATOLOGY ORDERABLE S [facility] [place] [address] * (ABNORMAL) Basic Metabolic Panel (non-fasting) (06/20/2023 3:32 AM EDT) Glucose Lvl 99 65 - 199 mg/dL [facility] Comment:Diabetes: >=200 mg/d L plus symptoms BUN 26(H) 8 - 18 mg/dL [facility] Creatinine 1.12 0.70 - 1.20 mg/dL [facility] Sodium 137 135 - 145 mmol/L [facility] Potassium 3.7 3.5 - 5.0 mmol/L [facility] Comment: Please note: ??Patients with WBC >100,000 may have falsely elevated Potassium levels. ??For accurate Potassium quantification in these patients send serum separator tube (gold top) for subsequent determinations. ??Contact the Clinical Chemistry Laboratory if there are any questions. Chloride 102 98 - 107 mmol/L [facility] CO2 22 22 - 31 mmol/L [facility] Anion Gap 13 5 - 15 mmol/L [facility] Calcium 9.4 8.5 - 10.5 mg/dL [facility] Estimated GFR 58(L) >=60 mL/min/1. 73 m?? [facility] Comment: This patient's estimated [...] Organization Address City/[facility]/ZIP Co de Phone Number [facility] [place] [address] * Phosphorus (06/20/2023 3:32 AM EDT) Phosphorus 4.3 2.5 - 4.5 mg/dL [facility] Blood 06/20/2023 3:32 AM EDT 06/20/2023 3:47 AM EDT Narrative Resulting Agency Comment Spec In Lab Eufemia Copeland MD CHEMISTRY ORDERABL ES Performing Organization Address [facility]/ZIP Co de Phone Number [facility] [place] [address] * Magnesium (06/20/2023 3:32 AM EDT) Magnesium 1.00 0.69 - 1.07 mmol/L [facility] Blood 06/20/2023 3:32 AM EDT 06/20/2023 3:47 AM EDT Narrative Resulting Agency Comment Spec In Lab Eufemia Copeland MD CHEMISTRY ORDERABL ES Performing Organization Address [facility]/ZIP Co de Phone Number [facility] [place] [address] * Phosphorus (06/19/2023 5:26 PM EDT) Phosphorus 4.0 2.5 - 4.5 mg/dL [facility] Blood 06/19/2023 5:26 PM EDT 06/19/2023 5:32 PM EDT Narrative Resulting Agency Comment Spec In Lab Eufemia Copeland MD CHEMISTRY ORDERABL ES Performing Organization Address City/[facility]/ZIP Co de Phone Number [facility] [place] [address] * Magnesium (06/19/2023 5:26 PM EDT) Magnesium 0.98 0.69 - 1.07 mmol/L [facility] Blood 06/19/2023 5:26 PM EDT 06/19/2023 5:32 PM EDT Narrative Resulting Agency Comment Spec In Lab Eufemia Copeland MD CHEMISTRY ORDERABL ES [facility] [place] [address] * (ABNORMAL) Basic Metabolic Panel (non-fasting) (06/19/2023 5:26 PM EDT) Glucose Lvl 105 65 - 199 mg/dL [facility] Comment:Diabetes: >=200 mg/d L plus symptoms BUN 21(H) 8 - 18 mg/dL [facility] Creatinine 1.06 0.70 - 1.20 mg/dL [facility] Sodium 139 135 - 145 mmol/L [facility] Potassium 3.9 3.5 - 5.0 mmol/L [facility] Comment: Please note: ??Patients with WBC >100,000 may have falsely elevated Potassium levels. ??For accurate Potassium quantification in these patients send serum separator tube (gold top) for subsequent determinations. ??Contact the Clinical Chemistry Laboratory if there are any questions. Chloride 103 98 - 107 mmol/L [facility] CO2 22 22 - 31 mmol/L [facility] Anion Gap 14 5 - 15 mmol/L [facility] Calcium 9.5 8.5 - 10.5 mg/dL [facility] Estimated GFR 62 >=60 mL/min/1. 73 m?? [facility] Comment: This patient's estimated [...] Organization Address City/[facility]/ZIP Co de Phone Number [facility] [place] [address] * EKG 12 Lead (06/19/2023 4:24 AM EDT) Ventricular rate 66 BPM MUSE SYSTEM Atrial Rate 66 BPM MUSE SYSTEM P-R Interval 188 ms MUSE SYSTEM QRS Duration 92 ms MUSE SYSTEM Q-T Interval 484 ms MUSE SYSTEM QTC Calculated (Bezet) 507 ms MUSE SYSTEM Calculated P [place] 32 degrees MUSE SYSTEM Calculated R [place] 22 degrees MUSE SYSTEM Calculated T [place] 47 degrees MUSE SYSTEM INTERPRETATION Normal sinus [...] Glucose Lvl 101 65 - 199 mg/dL [facility] Comment:Diabetes: >=200 mg/d L plus symptoms BUN 24(H) 8 - 18 mg/dL [facility] Creatinine 1.04 0.70 - 1.20 mg/dL [facility] Sodium 137 135 - 145 mmol/L [facility] Potassium 3.6 3.5 - 5.0 mmol/L [facility] Comment: Please note: ??Patients with WBC >100,000 may have falsely elevated Potassium levels. ??For accurate Potassium quantification in these patients send serum separator tube (gold top) for subsequent determinations. ??Contact the Clinical Chemistry Laboratory if there are any questions. Chloride 100 98 - 107 mmol/L [facility] CO2 Not Perf 22 - 31 [facility] Comment:Add-on request. Samparish le too old to perform test. Anion Gap Unable to Calculate 5 - 15 mmol/L [facility] Calcium 9.4 8.5 - 10.5 mg/dL [facility] Estimated GFR 64 >=60 mL/min/1 .73 m?? [facility] Comment: This patient's estimated [...] Lab Eufemia Copeland MD CHEMISTRY ORDERABL ES [facility] [place] [address] * Differential, Automated (06/19/2023 3:22 AM EDT) Neutrophils % 54.0 % [facility] Neutr Abs (ANC) 5.08 1.70 - 6.10 x10(3)/[facility] LABORATORY Lymphocytes % 30.7 % [facility] Lymphocytes Abs 2.9 0.9 - 3.2 x10(3)/[facility] LABORATORY Monocytes % 10.0 % [facility] Monocyte Abs 0.9 0.3 - 0.9 x10(3)/[facility] LABOR[facility] Eosinophils % 4.5 % [facility] Eosinophils Abs 0.4 0.0 - 0.4 x10(3)/[facility] Basophils % 0.6 % [facility] Basophils Abs 0.1 0.0 - 0.1 x10(3)/[facility] Immature Gran % 0.20 % [facility] Comment: Immature granulocytes(IG's)percentage and absolute count will include metamyelocytes, myelocytes, and promyelocytes. Blood smears from CBCs yielding IG's will be scanned manually for concordance. If this scan disagrees with the automated IG or if promyelocytes are noted, a manual differential will be performed. Shonda Gran Abs 0.02 0.00 - 0.04 x10(3)/[facility] LAB[facility] Blood 06/19/2023 3:22 AM EDT 06/19/2023 3:47 AM EDT Narrative Resulting Agency Comment Spec In Lab Terrence Keating MD HEMATOLOGY ORDERABLE S [facility] [place] [address] * Hemogram (06/19/2023 3:22 AM EDT) WBC 9.4 4.0 - 9.5 x10(3)/[facility] LABOR[facility] RBC 4.48 4.00 - 5.21 x10(6)/[facility] LAB[facility] Hemoglobin 13.9 11.7 - 15.5 g/dL [facility] [place] Hematocrit 41.7 35.7 - 45.8 % [facility] [place] [place] MCV 93.1 82.6 - 94.4 fL [facility] [place] MCH 31.0 27.1 - 32.0 pg [facility] MCHC 33.3 31.7 - 35.0 g/dL [facility] Platelets 244 145 - 357 x10(3)/[facility] LABORATORY RDWSD 44.2 37.0 - 46.0 [facility] LABORATORY RDWCV 12.9 11.5 - 14.1 % [facility] MPV 10.9 7.6 - 12.9 [facility] LABORATORY nRBC % Auto 0.0 % [facility] nRBC Abs Auto 0.000 0.000 - 0.000 x10(3)/[facility] Blood 06/19/2023 3:22 AM EDT 06/19/2023 3:47 AM EDT Narrative Resulting Agency Comment Spec In Lab Terrence Keating MD HEMATOLOGY ORDERABLE S Performing Organization Address City/[facility]/ZIP Co de Phone Number [facility] [place] [address] * Phosphorus (06/19/2023 3:22 AM EDT) Phosphorus 4.1 2.5 - 4.5 mg/dL [facility] Blood 06/19/2023 3:22 AM EDT 06/19/2023 3:47 AM EDT Narrative Resulting Agency Comment Spec In Lab Eufemia Copeland MD CHEMISTRY ORDERABL ES Performing Organization Address City/[facility]/ZIP Co de Phone Number [facility] [place] [address] * Magnesium (06/19/2023 3:22 AM EDT) Magnesium 1.00 0.69 - 1.07 mmol/L [facility] Blood 06/19/2023 3:22 AM EDT 06/19/2023 3:47 AM EDT Narrative Resulting Agency Comment Spec In Lab Eufemia Copeland MD CHEMISTRY ORDERABL ES [facility] [place] [address] * (ABNORMAL) Basic Metabolic Panel (non-fasting) (06/18/2023 5:17 PM EDT) Glucose Lvl 115 65 - 199 mg/dL [facility] Comment:Diabetes: >=200 mg/d L plus symptoms BUN 22(H) 8 - 18 mg/dL [facility] Creatinine 1.12 0.70 - 1.20 mg/dL [facility] Sodium 137 135 - 145 mmol/L [facility] Potassium 4.2 3.5 - 5.0 mmol/L [facility] Comment: Please note: ??Patients with WBC >100,000 may have falsely elevated Potassium levels. ??For accurate Potassium quantification in these patients send serum separator tube (gold top) for subsequent determinations. ??Contact the Clinical Chemistry Laboratory if there are any questions. Chloride 101 98 - 107 mmol/L [facility] CO2 22 22 - 31 mmol/L [facility] Anion Gap 14 5 - 15 mmol/L [facility] Calcium 9.6 8.5 - 10.5 mg/dL [facility] Estimated GFR 58(L) >=60 mL/min/1. 73 m?? [facility] Comment: This patient's estimated [...] Lab Eufemia Copeland MD CHEMISTRY ORDERABL ES [facility] [place] [address] * (ABNORMAL) Basic Metabolic Panel (non-fasting) (06/18/2023 4:19 AM EDT) Glucose Lvl 96 65 - 199 mg/dL [facility] Comment:Diabetes: >=200 mg/d L plus symptoms BUN 22(H) 8 - 18 mg/dL [facility] Creatinine 0.93 0.70 - 1.20 mg/dL [facility] Sodium 138 135 - 145 mmol/L [facility] Potassium 4.2 3.5 - 5.0 mmol/L [facility] Comment: Please note: ??Patients with WBC >100,000 may have falsely elevated Potassium levels. ??For accurate Potassium quantification in these patients send serum separator tube (gold top) for subsequent determinations. ??Contact the Clinical Chemistry Laboratory if there are any questions. Chloride 102 98 - 107 mmol/L [facility] CO2 Not Perf 22 - 31 [facility] Comment:Add-on request. Flaca le too old to perform test. Anion Gap Unable to Calculate 5 - 15 mmol/L [facility] Calcium 9.5 8.5 - 10.5 mg/dL [facility] Estimated GFR 73 >=60 mL/min/1 .73 m?? [facility] Comment: This patient's estimated [...] Lab Eufemia Copeland MD CHEMISTRY ORDERABL ES [facility] [place] [address] * Differential, Automated (06/18/2023 4:19 AM EDT) Neutrophils % 54.1 % [facility] Neutr Abs (ANC) 4.52 1.70 - 6.10 x10(3)/[facility] LAB[facility] Lymphocytes % 31.0 % [facility] Lymphocytes Abs 2.6 0.9 - 3.2 x10(3)/[facility] LAB[facility] Monocytes % 9.2 % [facility] Monocyte Abs 0.8 0.3 - 0.9 x10(3)/[facility] LAB[facility] Eosinophils % 4.9 % [facility] Eosinophils Abs 0.4 0.0 - 0.4 x10(3)/[facility] LAB[facility] Basophils % 0.6 % [facility] Basophils Abs 0.0 0.0 - 0.1 x10(3)/[facility] LAB[facility] Immature Gran % 0.20 % [facility] Comment: Immature granulocytes(IG's)percentage and absolute count will include metamyelocytes, myelocytes, and promyelocytes. Blood smears from CBCs yielding IG's will be scanned manually for concordance. If this scan disagrees with the automated IG or if promyelocytes are noted, a manual differential will be performed. Shonda Gran Abs 0.02 0.00 - 0.04 x10(3)/[facility] LAB[facility] Blood 06/18/2023 4:19 AM EDT 06/18/2023 4:40 AM EDT Narrative Resulting Agency Comment Spec In Lab Terrence Keating MD HEMATOLOGY ORDERABLE S [facility] [place] [address] * Hemogram (06/18/2023 4:19 AM EDT) WBC 8.4 4.0 - 9.5 x10(3)/[facility] LAB[facility] RBC 4.70 4.00 - 5.21 x10(6)/[facility] Hemoglobin 14.5 11.7 - 15.5 g/dL [facility] Hematocrit 42.8 35.7 - 45.8 % [facility] MCV 91.1 82.6 - 94.4 fL [facility] MCH 30.9 27.1 - 32.0 pg [facility] MCHC 33.9 31.7 - 35.0 g/dL [facility] Platelets 258 145 - 357 x10(3)/[facility] LABOR[facility] RDWSD 43.6 37.0 - 46.0 [facility] LABORATORY RDWCV 13.0 11.5 - 14.1 % [facility] MPV 10.7 7.6 - 12.9 [facility] LABORATORY nRBC % Auto 0.0 % [facility] nRBC Abs Auto 0.000 0.000 - 0.000 x10(3)/[facility] Blood 06/18/2023 4:19 AM EDT 06/18/2023 4:40 AM EDT Narrative Resulting Agency Comment Spec In Lab Terrence Keating MD HEMATOLOGY ORDERABLE S [facility] [place] [address] * Phosphorus (06/18/2023 4:19 AM EDT) Phosphorus 3.7 2.5 - 4.5 mg/dL [facility] Blood 06/18/2023 4:19 AM EDT 06/18/2023 4:40 AM EDT Narrative Resulting Agency Comment Spec In Lab Eufemia Copeland MD CHEMISTRY ORDERABL ES Performing Organization Address [facility] Co de Phone Number [facility] [place] [address] * Magnesium (06/18/2023 4:19 AM EDT) Magnesium 1.02 0.69 - 1.07 mmol/L [facility] Blood 06/18/2023 4:19 AM EDT 06/18/2023 4:40 AM EDT Narrative Resulting Agency Comment Spec In Lab Eufemia Copeland MD CHEMISTRY ORDERABL ES Performing Organization Address [facility] de Phone Number [facility] [place] [address] * Phosphorus (06/17/2023 2:26 PM EDT) Phosphorus 2.8 2.5 - 4.5 mg/dL [facility] Blood 06/17/2023 2:26 PM EDT 06/17/2023 2:36 PM EDT Narrative Resulting Agency Comment Spec In Lab Eufemia Copeland MD CHEMISTRY ORDERABL ES Performing Organization Address [facility] Co de Phone Number [facility] [place] [address] * Magnesium (06/17/2023 2:26 PM EDT) Magnesium 1.01 0.69 - 1.07 mmol/L [facility] Blood 06/17/2023 2:26 PM EDT 06/17/2023 2:36 PM EDT Narrative Resulting Agency Comment Spec In Lab Eufemia Copeland MD CHEMISTRY ORDERABL ES [facility] [place] [address] * (ABNORMAL) Basic Metabolic Panel (non-fasting) (06/17/2023 2:26 PM EDT) Glucose Lvl 103 65 - 199 mg/dL [facility] Comment:Diabetes: >=200 mg/d L plus symptoms BUN 21(H) 8 - 18 mg/dL [facility] Creatinine 1.07 0.70 - 1.20 mg/dL [facility] Sodium 135 135 - 145 mmol/L [facility] Potassium 3.7 3.5 - 5.0 mmol/L [facility] Comment: Please note: ??Patients with WBC >100,000 may have falsely elevated Potassium levels. ??For accurate Potassium quantification in these patients send serum separator tube (gold top) for subsequent determinations. ??Contact the Clinical Chemistry Laboratory if there are any questions. Chloride 97(L) 98 - 107 mmol/L [facility] CO2 24 22 - 31 mmol/L [facility] Anion Gap 14 5 - 15 mmol/L [facility] Calcium 9.6 8.5 - 10.5 mg/dL [facility] Estimated GFR 62 >=60 mL/min/1. 73 m?? [facility] Comment: This patient's estimated [...] Lab Eufemia Copeland MD CHEMISTRY ORDERABL ES [facility] [place] [address] * XR Abdomen Flat & Upright (06/17/2023 [...] who have questions please contact the health manager medicare that requested 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 ? Electronically signed by: Wilton Cabrera MD, [facility] ([phone]), at 06/17/2023 5:30 PM Narrative 06/17/2023 5:30 PM EDT EXAMINATION: XR ABDOMEN FLAT AND UPRIGHT CLINICAL HISTORY: [facility]x [facility], LLQ tenderness, constipation TECHNIQUE: [...] CLINICAL HISTORY: [facility] hx hysterectomy, LLQ tenderness, constipation TECHNIQUE: [...] patients who have questions please contactthe health manager medicare that requested 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 Electronically signed by: Wilton Cabrera MD, [facility]([phone]), at 06/17/2023 5:30 PM Eufemia Copeland MD IMG DX ORDERABLES * (ABNORMAL) Basic Metabolic Panel (non-fasting) (06/17/2023 5:01 AM EDT) Glucose Lvl 100 65 - 199 mg/dL [facility] Comment:Diabetes: >=200 mg/d L plus symptoms BUN 24(H) 8 - 18 mg/dL [facility] Creatinine 1.03 0.70 - 1.20 mg/dL [facility] Sodium 136 135 - 145 mmol/L [facility] Potassium Not Perf 3.5 - 5.0 [facility] Comment: Unable to quantitate [...] questions. Chloride 100 98 - 107 mmol/L [facility] CO2 24 22 - 31 mmol/L [facility] Anion Gap 12 5 - 15 mmol/L [facility] Calcium 9.5 8.5 - 10.5 mg/dL [facility] Estimated GFR 65 >=60 mL/min/1. 73 m?? [facility] Comment: This patient's estimated [...] In Lab Terrence Keating MD CHEMISTRY ORDERABLES [facility] [place] [address] * Differential, Automated (06/17/2023 1:11 AM EDT) Neutrophils % 54.5 % [facility] Neutr Abs (ANC) 5.20 1.70 - 6.10 x10(3)/[facility] Lymphocytes % 31.4 % [facility] Lymphocytes Abs 3.0 0.9 - 3.2 x10(3)/[facility] Monocytes % 9.8 % [facility] Monocyte Abs 0.9 0.3 - 0.9 x10(3)/[facility] LAB[facility] Eosinophils % 3.4 % [facility] Eosinophils Abs 0.3 0.0 - 0.4 x10(3)/[facility] Basophils % 0.5 % [facility] Basophils Abs 0.0 0.0 - 0.1 x10(3)/[facility] LAB[facility] Immature Gran % 0.40 % [facility] Comment: Immature granulocytes(IG's)percentage and absolute count will include metamyelocytes, myelocytes, and promyelocytes. Blood smears from CBCs yielding IG's will be scanned manually for concordance. If this scan disagrees with the automated IG or if promyelocytes are noted, a manual differential will be performed. Shonda Gran Abs 0.04 0.00 - 0.04 x10(3)/[facility] Blood 06/17/2023 1:11 AM EDT 06/17/2023 1:16 AM EDT Narrative Resulting Agency Comment Spec In Lab Terrence eKating MD HEMATOLOGY ORDERABLE S [facility] [place] [address] * Hemogram (06/17/2023 1:11 AM EDT) WBC 9.5 4.0 - 9.5 x10(3)/[facility] RBC 4.60 4.00 - 5.21 x10(6)/[facility] Hemoglobin 14.2 11.7 - 15.5 g/dL [facility] Hematocrit 43.0 35.7 - 45.8 % [facility] MCV 93.5 82.6 - 94.4 fL [facility] MCH 30.9 27.1 - 32.0 pg [facility] MCHC 33.0 31.7 - 35.0 g/dL [facility] Platelets 256 145 - 357 x10(3)/[facility] RDWSD 45.0 37.0 - 46.0 fL [facility] RDWCV 13.2 11.5 - 14.1 % [facility] MPV 10.9 7.6 - 12.9 fL [facility] nRBC % Auto 0.0 % [facility] nRBC Abs Auto 0.000 0.000 - 0.000 x10(3)/[facility] Blood 06/17/2023 1:11 AM EDT 06/17/2023 1:16 AM EDT Narrative Resulting Agency Comment Spec In Lab Terrence Keating MD HEMATOLOGY ORDERABLE S [facility] [place] [address] * Magnesium (06/17/2023 1:11 AM EDT) Pathologist [facility] Magnesium 0.96 0.69 - 1.07 mmol/L [facility] Blood 06/17/2023 1:11 AM EDT 06/17/2023 1:16 AM EDT Narrative Resulting Agency Comment Spec In Lab Eufemia Copeland MD CHEMISTRY ORDERABL ES Performing Organization Address [facility]/ZIP Co de Phone Number [facility] [place] [address] * (ABNORMAL) Basic Metabolic Panel (non-fasting) (06/17/2023 1:11 AM EDT) Pathologist [facility] Glucose Lvl 102 65 - 199 mg/dL [facility] Comment:Diabetes: >=200 mg/d L plus symptoms BUN 24(H) 8 - 18 mg/dL [facility] Creatinine 1.08 0.70 - 1.20 mg/dL [facility] Sodium 137 135 - 145 mmol/L [facility] Potassium 4.1 3.5 - 5.0 mmol/L [facility] Comment: Please note: ??Patients with WBC >100,000 may have falsely elevated Potassium levels. ??For accurate Potassium quantification in these patients send serum separator tube (gold top) for subsequent determinations. ??Contact the Clinical Chemistry Laboratory if there are any questions. Chloride 100 98 - 107 mmol/L [facility] CO2 24 22 - 31 mmol/L [facility] Anion Gap 13 5 - 15 mmol/L [facility] Calcium 9.2 8.5 - 10.5 mg/dL [facility] Estimated GFR 61 >=60 mL/min/1. 73 m?? [facility] Comment: This patient's estimated [...] In Lab Terrence Keating MD CHEMISTRY ORDERABLES [facility] [place] [address] * (ABNORMAL) Basic Metabolic Panel (non-fasting) (06/16/2023 8:28 PM EDT) Glucose Lvl 111 65 - 199 mg/dL [facility] Comment:Diabetes: >=200 mg/d L plus symptoms BUN 23(H) 8 - 18 mg/dL [facility] Creatinine 1.21(H) 0.70 - 1.20 mg/dL [facility] Sodium 137 135 - 145 mmol/L [facility] Potassium 4.2 3.5 - 5.0 mmol/L [facility] Comment: Please note: ??Patients with WBC >100,000 may have falsely elevated Potassium levels. ??For accurate Potassium quantification in these patients send serum separator tube (gold top) for subsequent determinations. ??Contact the Clinical Chemistry Laboratory if there are any questions. Chloride 99 98 - 107 mmol/L [facility] CO2 26 22 - 31 mmol/L [facility] Anion Gap 12 5 - 15 mmol/L [facility] Calcium 9.3 8.5 - 10.5 mg/dL [facility] Estimated GFR 53(L) >=60 mL/min/1. 73 m?? [facility] Comment: This patient's estimated [...] Lab Eufemia Copeland MD CHEMISTRY ORDERABL ES [facility] [place] [address] * (ABNORMAL) Basic Metabolic Panel (non-fasting) (06/16/2023 2:29 PM EDT) Glucose Lvl 175 65 - 199 mg/dL [facility] Comment:Diabetes: >=200 mg/d L plus symptoms BUN 25(H) 8 - 18 mg/dL [facility] Creatinine 1.27(H) 0.70 - 1.20 mg/dL [facility] Sodium 135 135 - 145 mmol/L [facility] Potassium 3.9 3.5 - 5.0 mmol/L [facility] Comment: result rechecked-EL Please note: ??Patients with WBC >100,000 may have falsely elevated Potassium levels. ??For accurate Potassium quantification in these patients send serum separator tube (gold top) for subsequent determinations. ??Contact the Clinical Chemistry Laboratory if there are any questions. Chloride 96(L) 98 - 107 mmol/L [facility] CO2 26 22 - 31 mmol/L [facility] Anion Gap 13 5 - 15 mmol/L [facility] Calcium 9.3 8.5 - 10.5 mg/dL [facility] Estimated GFR 50(L) >=60 mL/min/1. 73 m?? [facility] Comment: This patient's estimated [...] Lab Eufemia Copeland MD CHEMISTRY ORDERABL ES [facility] [place] [id number] * (ABNORMAL) Basic Metabolic Panel (non-fasting) (06/16/2023 9:01 AM EDT) Glucose Lvl 148 65 - 199 mg/dL [facility] Comment:Diabetes: >=200 mg/d L plus symptoms BUN 27(H) 8 - 18 mg/dL [facility] Creatinine 1.27(H) 0.70 - 1.20 mg/dL [facility] Sodium 136 135 - 145 mmol/L [facility] Potassium 2.9(Criti edy) 3.5 - 5.0 mmol/L [facility] Comment: called by tmp /read back by (Malia Mcintyre)/ 06/16/23 @423 Please note: ??Patients with WBC >100,000 may have falsely elevated Potassium levels. ??For accurate Potassium quantification in these patients send serum separator tube (gold top) for subsequent determinations. ??Contact the Clinical Chemistry Laboratory if there are any questions. Chloride 91(L) 98 - 107 mmol/L [facility] CO2 32(H) 22 - 31 mmol/L [facility] Anion Gap 13 5 - 15 mmol/L [facility] Calcium 9.7 8.5 - 10.5 mg/dL [facility] Estimated GFR 50(L) >=60 mL/min/1. 73 m?? [facility] Comment: This patient's estimated [...] Lab Eufemia Copeland MD CHEMISTRY ORDERABL ES [facility] [place] [address] * (ABNORMAL) Magnesium (06/16/2023 3:30 AM EDT) Magnesium 1.09(H) 0.69 - 1.07 mmol/L [facility] Blood Venous Draw / Unknown 06/16/2023 3:30 AM EDT 06/16/2023 3:38 AM EDT Narrative Resulting Agency Comment Spec In Lab Eufemia Copeland MD CHEMISTRY ORDERABL ES [facility] [place] [address] * (ABNORMAL) Differential, Automated (06/16/2023 3:30 AM EDT) Neutrophils % 50.4 % [facility] Neutr Abs (ANC) 4.15 1.70 - 6.10 x10(3)/[facility] LABOR[facility] Lymphocytes % 33.7 % [facility] Lymphocytes Abs 2.8 0.9 - 3.2 x10(3)/[facility] LAB[facility] Monocytes % 11.8 % [facility] Monocyte Abs 1.0(H) 0.3 - 0.9 x10(3)/[facility] LAB[facility]ORY Eosinophils % 3.3 % [facility] Eosinophils Abs 0.3 0.0 - 0.4 x10(3)/[facility] LAB[facility] Basophils % 0.6 % [facility] Basophils Abs 0.0 0.0 - 0.1 x10(3)/[facility] LAB[facility] Immature Gran % 0.20 % [facility] Comment: Immature granulocytes(IG's)percentage and absolute count will include metamyelocytes, myelocytes, and promyelocytes. Blood smears from CBCs yielding IG's will be scanned manually for concordance. If this scan disagrees with the automated IG or if promyelocytes are noted, a manual differential will be performed. Shonda Gran Abs 0.02 0.00 - 0.04 x10(3)/[facility] Blood 06/16/2023 3:30 AM EDT 06/16/2023 3:37 AM EDT Narrative Resulting Agency Comment Spec In Lab Terrence Keating MD HEMATOLOGY ORDERABLE S [facility] [place] [address] * Hemogram (06/16/2023 3:30 AM EDT) WBC 8.2 4.0 - 9.5 x10(3)/[facility] LABORAT[facility] RBC 4.69 4.00 - 5.21 x10(6)/[facility] Hemoglobin 14.5 11.7 - 15.5 g/dL [facility] Hematocrit 42.7 35.7 - 45.8 % [facility] MCV 91.0 82.6 - 94.4 [facility] LABORATORY MCH 30.9 27.1 - 32.0 pg [facility] MCHC 34.0 31.7 - 35.0 g/dL [facility] Platelets 260 145 - 357 x10(3)/[facility] LABOR[facility]ORY RDWSD 43.5 37.0 - 46.0 [facility] LAB[facility] RDWCV 13.0 11.5 - 14.1 % [facility] MPV 11.1 7.6 - 12.9 [facility] LAB[facility]ATORY nRBC % Auto 0.0 % [facility] nRBC Abs Auto 0.000 0.000 - 0.000 x10(3)/[facility] LAB[facility] Blood 06/16/2023 3:30 AM EDT 06/16/2023 3:37 AM EDT Narrative Resulting Agency Comment Spec In Lab Terrence Keating MD HEMATOLOGY ORDERABLE S [facility] [place] [address] * (ABNORMAL) Basic Metabolic Panel (non-fasting) (06/16/2023 3:30 AM EDT) Glucose Lvl 110 65 - 199 mg/dL [facility] Comment:Diabetes: >=200 mg/d L plus symptoms BUN 28(H) 8 - 18 mg/dL [facility] Creatinine 1.20 0.70 - 1.20 mg/dL [facility] Sodium 135 135 - 145 mmol/L [facility] Potassium 2.7(Criti edy) 3.5 - 5.0 mmol/L [facility] Comment: called by KS /read back by Jolly Friedman / 06/16/23 1871 Please note: ??Patients with WBC >100,000 may have falsely elevated Potassium levels. ??For accurate Potassium quantification in these patients send serum separator tube (gold top) for subsequent determinations. ??Contact the Clinical Chemistry Laboratory if there are any questions. Chloride 90(L) 98 - 107 mmol/L [facility] CO2 33(H) 22 - 31 mmol/L [facility] Anion Gap 12 5 - 15 mmol/L [facility] Calcium 9.2 8.5 - 10.5 mg/dL [facility] Estimated GFR 54(L) >=60 mL/min/1. 73 m?? [facility] Comment: This patient's estimated [...] MD CHEMISTRY ORDERABL ES Performing Organization Address City/State/[facility] Co de Phone Number [facility] [place] [address] * Heparin (unfractionated) Level (06/16/2023 3:30 AM EDT) Heparin UFH Level 0.64 IU/mL [facility] Comment: Heparin (anti-Xa) levels [...] Lab Terrence Keating MD HEMATOLOGY ORDERABLE S [facility] [place] [address] * Lipid Panel (Reflex Direct LDL) (06/16/2023 3:30 AM EDT) Chol, Total 190 mg/dL [facility] Comment: Desirable: ? <200 mg/dL Borderline High: 200-239 mg/dL Higher: ?>yj=221 mg/dL Triglycerides 126 mg/dL [facility] Comment: Normal: ?<150 mg/dL Borderline High: 150-199 mg/dL High: ?200-499 mg/dL Very High: ? >fv=390 mg/dL HDL 50 mg/dL [facility] Comment: Females: High Risk: <50 mg/dL Males: High Risk: <40 mg/dL LDL Cholesterol 115 mg/dL [facility] Comment: Desirable: ? <100 mg/dL Above Desirable: 100-129 mg/dL Borderline High: 130-159 mg/dL High: ?160-189 mg/dL Very High: ? >hg=583 mg/dL Lipid Interpretation See Note [facility] Comment: It is important [...] ACC/AHA Guidelines (most recently Ysabel et al. [facility] 12/09/21): For individuals with atherosclerotic cardiovascular disease (ASCVD)or LDL >qw=890 mg/dL, use a high-intensity statin (40-80 mg [...] In Lab Terrence Keating MD CHEMISTRY ORDERABLES [facility] [place] [address] * (ABNORMAL) Basic Metabolic Panel (non-fasting) (06/15/2023 9:33 PM EDT) Glucose Lvl 120 65 - 199 mg/dL [facility] Comment:Diabetes: >=200 mg/d L plus symptoms BUN 29(H) 8 - 18 mg/dL [facility] Creatinine 1.38(H) 0.70 - 1.20 mg/dL [facility] Sodium 135 135 - 145 mmol/L [facility] Potassium 3.1(L) 3.5 - 5.0 mmol/L [facility] Comment: Please note: ??Patients with WBC >100,000 may have falsely elevated Potassium levels. ??For accurate Potassium quantification in these patients send serum separator tube (gold top) for subsequent determinations. ??Contact the Clinical Chemistry Laboratory if there are any questions. Chloride 92(L) 98 - 107 mmol/L [facility] CO2 31 22 - 31 mmol/L [facility] Anion Gap 12 5 - 15 mmol/L [facility] Calcium 9.4 8.5 - 10.5 mg/dL [facility] Estimated GFR 45(L) >=60 mL/min/1. 73 m?? [facility] Comment: This patient's estimated [...] Organization Address City/[facility]/ZIP Co de Phone Number [facility] [place] [address] * Heparin (unfractionated) Level (06/15/2023 9:33 PM EDT) Heparin UFH Level 0.63 IU/mL [facility] Comment: Heparin (anti-Xa) levels [...] MD HEMATOLOGY ORDERABLE S Performing Organization Address [facility] Co de Phone Number [facility] [place] [address] * (ABNORMAL) Magnesium (06/15/2023 5:47 PM EDT) [facility] Magnesium 1.10(H) 0.69 - 1.07 mmol/L [facility] Blood Venous Draw / Unknown 06/15/2023 5:47 PM EDT 06/15/2023 6:10 PM EDT Narrative Resulting Agency Comment Spec In Lab Terrence Keating MD CHEMISTRY ORDERABLES Performing Organization Address [facility]/ZIP Co de Phone Number [facility] [place] [address] * (ABNORMAL) Basic Metabolic Panel (non-fasting) (06/15/2023 5:47 PM EDT) Glucose Lvl 147 65 - 199 mg/dL [facility] Comment:Diabetes: >=200 mg/d L plus symptoms BUN 29(H) 8 - 18 mg/dL [facility] Creatinine 1.20 0.70 - 1.20 mg/dL [facility] Sodium 134(L) 135 - 145 mmol/L [facility] Potassium 2.9(Criti edy) 3.5 - 5.0 mmol/L [facility] Comment: Called by: dm, Read back by: qamar ren, Date/Time:06/15/23 19:11. Please note: ??Patients with WBC >100,000 may have falsely elevated Potassium levels. ??For accurate Potassium quantification in these patients send serum separator tube (gold top) for subsequent determinations. ??Contact the Clinical Chemistry Laboratory if there are any questions. Chloride 89(L) 98 - 107 mmol/L [facility] CO2 29 22 - 31 mmol/L [facility] Anion Gap 16(H) 5 - 15 mmol/L [facility] Calcium 9.1 8.5 - 10.5 mg/dL [facility] Estimated GFR 54(L) >=60 mL/min/1. 73 m?? [facility] Comment: This patient's estimated [...] Lab Eufemia Copeland MD CHEMISTRY ORDERABL ES [facility] [place] [address] * Rapid Drug Screen w/o Confirmation, Urine (06/15/2023 4:46 PM EDT) U Barbiturates Screen None Detected None Detected [facility] Comment: The barbiturate screen [...] U Benzodiazepines Screen None Detected None Detected [facility] Comment: The benzodiazepines screen [...] U Cocaine Screen None Detected None Detected [facility] Comment: The cocaine metabolites screen detects benzoylecgonine (Cocaine Metabolite) at concentrations >150 ng/mL. A ? Presumptive Positive? result indicates that the screening result was positive but has not yet been confirmed by a highly-specific method. As with any screen, occasional false positive results from cross-reacting substances may occur. Not for Medico-Legal Purposes. U Methadone Metabolites Screen None Detected None Detected [facility] Comment: The methadone metabolite screen detects EDDP (major methadone metabolite) at concentrations >100 ng/mL. A ? Presumptive Positive? result indicates that the screening result was positive but has not yet been confirmed by a highly-specific method. As with any screen, occasional false positive results from cross-reacting substances may occur. Not for Medico-Legal Purposes. U Opiate Screen None Detected None Detected [facility] Comment: The opiates screen [...] U Cannabinoid Screen None Detected None Detected [facility] Comment: The marijuana metabolites screen detects the THC metabolite (79-ayt-4-carboxy-delta 9-THC) at concentrations >20 ng/mL. A ? Presumptive Positive? result indicates that the screening result was positive but has not yet been confirmed by a highly-specific method. As with any screen, occasional false positive results from cross-reacting substances may occur. Not for Medico-Legal Purposes. U Oxycodone Screen None Detected None Detected [facility] Comment: The oxycodone screen detects oxycodone and oxymorphone at concentrations >100 ng/mL. A ? Presumptive Positive? result indicates that the screening result was positive but has not yet been confirmed by a highly-specific method. As with any screen, occasional false positive results from cross-reacting substances may occur. Not for Medico-Legal Purposes. U Buprenorphine Screen None Detected None Detected [facility] Comment: The buprenorphine screen [...] characteristics of this test were determined by [facility] in accordance with CLIA requirements. This laboratory is qualified under CLIA to perform high-complexity testing. U Fentanyl Screen None Detected None Detected [facility] Comment: The fentanyl screen [...] this test were determined by [facility] in accordance with CLIA requirements. This laboratory is qualified under CLIA to perform high-complexity testing. U Tricyclics Screen None Detected None Detected [facility] Comment: The tricyclics screen [...] characteristics of this test were determined by [facility] in accordance with CLIA requirements. This laboratory is qualified under CLIA to perform high-complexity testing. U Ethanol Screen None Detected None Detected [facility] Comment:This urine ethanol a ssay detects ethanol at concentrations >/= 100 mg/L. U Amphetamines Screen None Detected None Detected [facility] Comment: The amphetamine screen detects d-amphetamine and d-methamphetamine at concentrations >300 ng/mL. A ? Presumptive Positive? result indicates that the screening result was positive but has not yet been confirmed by a highly-specific method. As with any screen, occasional false positive results from cross-reacting substances may occur. Not for Medico-Legal Purposes. U Creat TEE 39 >=20 mg/dL [facility] U Chromate TEE <2.0 <=49.9 mg/L [facility] U Nitrite TEE <50 <=499 mg/L [facility] U Oxidant TEE 12 <=199 mg/L [facility] U pH TEE 5.4 3.0 - 10.9 [facility] U Adulterants Screen None Detected None Detected [facility] Comment:No adulteration of t his urine sample was detected. Urine 06/15/2023 4:46 PM EDT 06/15/2023 5:30 PM EDT Narrative Resulting Agency Comment Spec In Lab Eufemia Copeland MD CHEMISTRY ORDERABL ES Performing Organization Address [facility] Co de Phone Number [facility] [place] [address] * Rapid Drug Screen, Urine (TEE Request) (06/15/2023 4:46 PM EDT) TEE Conf Requested No [facility] TEE Requested See Comment [facility] Comment:Refer to Rapid Drug Screen w/o Confirmation, Urine for results. Urine 06/15/2023 4:46 PM EDT 06/15/2023 5:30 PM EDT Narrative Resulting Agency Comment Spec In Lab Eufemia Copeland MD URINE ORDERABLES Performing Organization Address [facility] Co de Phone Number [facility] [place] [address] * (ABNORMAL) Basic Metabolic Panel (non-fasting) (06/15/2023 2:29 PM EDT) Glucose Lvl 141 65 - 199 mg/dL [facility] Comment:Diabetes: >=200 mg/d L plus symptoms BUN 31(H) 8 - 18 mg/dL [facility] Creatinine 1.21(H) 0.70 - 1.20 mg/dL [facility] Sodium 132(L) 135 - 145 mmol/L [facility] Potassium 3.0(Criti edy) 3.5 - 5.0 mmol/L [facility] Comment: Called by: dm, Read back by: qamar ren, Date/Time:06/15/23 15:18. Please note: ??Patients with WBC >100,000 may have falsely elevated Potassium levels. ??For accurate Potassium quantification in these patients send serum separator tube (gold top) for subsequent determinations. ??Contact the Clinical Chemistry Laboratory if there are any questions. Chloride 89(L) 98 - 107 mmol/L [facility] CO2 32(H) 22 - 31 mmol/L [facility] Anion Gap 11 5 - 15 mmol/L [facility] Calcium 9.6 8.5 - 10.5 mg/dL [facility] Estimated GFR 53(L) >=60 mL/min/1. 73 m?? [facility] Comment: This patient's estimated [...] Lab Eufemia Copeland MD CHEMISTRY ORDERABL ES [facility] [place] [address] * Heparin (unfractionated) Level (06/15/2023 2:29 PM EDT) Heparin UFH Level 0.93 IU/mL [facility] Comment: Heparin (anti-Xa) levels [...] MD HEMATOLOGY ORDERABLE S Performing Organization Address City/[facility]/ZIP Co de Phone Number [facility] [place] [address] * EKG 12 Lead (06/15/2023 10:50 AM EDT) Ventricular rate 55 BPM MUSE SYSTEM Atrial Rate 55 BPM MUSE SYSTEM P-R Interval 184 ms MUSE SYSTEM QRS Duration 96 ms MUSE SYSTEM Q-T Interval 590 ms MUSE SYSTEM QTC Calculated (Bezet) 565 ms MUSE SYSTEM Calculated P [place] 54 degrees MUSE SYSTEM Calculated R [place] 54 degrees MUSE SYSTEM Calculated T [place] 13 degrees MUSE SYSTEM INTERPRETATION Sinus bradycardia with sinus arrhythmia Marked ST abnormality, possible inferior subendocardial injury Long QT interval Abnormal ECG When compared with ECG of 15-JUN-2023 02:17, Nonspecific T wave abnormality has replaced inverted T waves in Lateral leads Confirmed by Kai Haider ([id number]) on 06/16/2023 3:52:04 PM MUSE SYSTEM 06/15/2023 10:5 0 AM EDT 06/16/2023 3:52 PM EDT Terrence Keating MD ECG ORDERABLES Performing Organization Address [facility] Co de Phone Number MUSE SYSTEM * (ABNORMAL) Basic Metabolic Panel (non-fasting) (06/15/2023 8:18 AM EDT) Glucose Lvl 113 65 - 199 mg/dL [facility] Comment:Diabetes: >=200 mg/d L plus symptoms BUN 29(H) 8 - 18 mg/dL [facility] Creatinine 1.22(H) 0.70 - 1.20 mg/dL [facility] Sodium 134(L) 135 - 145 mmol/L [facility] Potassium 2.5(Criti edy) 3.5 - 5.0 mmol/L [facility] Comment: Called by: cheryl, Read back by: eamon mckeon, Date/Time:06/15/23 09:34. Please note: ??Patients with WBC >100,000 may have falsely elevated Potassium levels. ??For accurate Potassium quantification in these patients send serum separator tube (gold top) for subsequent determinations. ??Contact the Clinical Chemistry Laboratory if there are any questions. Chloride 89(L) 98 - 107 mmol/L [facility] CO2 30 22 - 31 mmol/L [facility] Anion Gap 15 5 - 15 mmol/L [facility] Calcium 10.0 8.5 - 10.5 mg/dL [facility] Estimated GFR 53(L) >=60 mL/min/1. 73 m?? [facility] Comment: This patient's estimated [...] Lab Eufemia Copeland MD CHEMISTRY ORDERABL ES [facility] [place] [address] * Heparin (unfractionated) Level (06/15/2023 8:18 AM EDT) Heparin UFH Level 0.70 IU/mL [facility] Comment: Heparin (anti-Xa) levels [...] Lab Terrence Keating MD HEMATOLOGY ORDERABLE S [facility] [place] [address] * (ABNORMAL) Troponin (06/15/2023 8:18 AM EDT) Troponin-T HS 33(H) <=14 ng/L [facility] [...] can be found in the [facility] Laboratory Test Catalog Troponin - [facility] Test Catalog Reference: Fourth Homer Definition of Myocardial Infarction. Journal of the [place] [employer] 2018;72:8301-2057 Blood 06/15/2023 8:18 AM EDT 06/15/2023 8:34 AM EDT Narrative Resulting Agency Comment Spec In Lab Terrence Keating MD CHEMISTRY ORDERABLES Performing Organization Address City/[facility] Co de Phone Number [facility] [place] [address] * Differential, Automated (06/15/2023 4:28 AM EDT) Neutrophils % 48.0 % [facility] Neutr Abs (ANC) 3.20 1.70 - 6.10 x10(3)/[facility] Lymphocytes % 35.8 % [facility] Lymphocytes Abs 2.4 0.9 - 3.2 x10(3)/[facility] Monocytes % 11.4 % [facility] Monocyte Abs 0.8 0.3 - 0.9 x10(3)/[facility] Eosinophils % 3.7 % [facility] Eosinophils Abs 0.2 0.0 - 0.4 x10(3)/[facility] Basophils % 1.0 % [facility] Basophils Abs 0.1 0.0 - 0.1 x10(3)/[facility] Immature Gran % 0.10 % [facility] Comment: Immature granulocytes(IG's)percentage and absolute count will include metamyelocytes, myelocytes, and promyelocytes. Blood smears from CBCs yielding IG's will be scanned manually for concordance. If this scan disagrees with the automated IG or if promyelocytes are noted, a manual differential will be performed. Shonda Gran Abs 0.01 0.00 - 0.04 x10(3)/[facility] Blood 06/15/2023 4:28 AM EDT 06/15/2023 4:37 AM EDT Narrative Resulting Agency Comment Spec In Lab Terrence Keating MD HEMATOLOGY ORDERABLE S [facility] [place] [address] * (ABNORMAL) Hemogram (06/15/2023 4:28 AM EDT) [facility] WBC 6.7 4.0 - 9.5 x10(3)/[facility] RBC 5.09 4.00 - 5.21 x10(6)/[facility] Hemoglobin 16.1(H) 11.7 - 15.5 g/dL [facility] Hematocrit 48.2(H) 35.7 - 45.8 % [facility] MCV 94.7(H) 82.6 - 94.4 [facility] MCH 31.6 27.1 - 32.0 pg [facility] MCHC 33.4 31.7 - 35.0 g/dL [facility] Platelets 253 145 - 357 x10(3)/[facility] RDWSD 45.5 37.0 - 46.0 [facility] RDWCV 13.0 11.5 - 14.1 % [facility] MPV 10.6 7.6 - 12.9 [facility] nRBC % Auto 0.0 % [facility] nRBC Abs Auto 0.000 0.000 - 0.000 x10(3)/[facility] Blood 06/15/2023 4:28 AM EDT 06/15/2023 4:37 AM EDT Narrative Resulting Agency Comment Spec In Lab Terrence Keating MD HEMATOLOGY ORDERABLE S [facility] [place] [address] * (ABNORMAL) Troponin (06/15/2023 4:28 AM EDT) Pathologist [facility] Troponin-T HS 34(H) <=14 ng/L [facility] [...] can be found in the [facility] Laboratory Test Catalog Troponin - [facility] Test Catalog Reference: Fourth Homer Definition of Myocardial Infarction. Journal of the [place] [employer] 2018;72:2118-2140 Blood 06/15/2023 4:28 AM EDT 06/15/2023 4:37 AM EDT Narrative Resulting Agency Comment Spec In Lab Terrence Keating MD CHEMISTRY ORDERABLES [facility] [place] [address] * (ABNORMAL) Prothrombin Time (06/15/2023 4:28 AM EDT) PT 12.7(H) 9.4 - 12.5 sec [facility] INR 1.1 [facility] Comment: An INR <2.0 [...] Lab Terrence Keating MD HEMATOLOGY ORDERABLE S [facility] [place] [address] * (ABNORMAL) Hepatic Function Panel (06/15/2023 4:28 AM EDT) Total Protein 7.5 6.1 - 8.0 g/dL [facility] Albumin 4.3 3.2 - 5.2 g/dL [facility] AST 32(H) 0 - 30 unit/L [facility] ALT 26 0 - 30 unit/L [facility] Alk Phos 70 35 - 105 unit/L [facility] Total Bilirubin 0.8 0.2 - 1.3 mg/dL [facility] Bili, Direct 0.1 0.0 - 0.3 mg/dL [facility] Blood 06/15/2023 4:28 AM EDT 06/15/2023 4:37 AM EDT Narrative Resulting Agency Comment Spec In Lab Terrence Keating MD CHEMISTRY ORDERABLES Performing Organization Address [facility]/ZIP Co de Phone Number [facility] [place] [address] * (ABNORMAL) pro-Brain Natriuretic Peptide (06/15/2023 4:28 AM EDT) ProBNP 1,953(H) <=124 pg/mL [facility] Blood 06/15/2023 4:28 AM EDT 06/15/2023 4:37 AM EDT Narrative Resulting Agency Comment Spec In Lab Terrence Keating MD CHEMISTRY ORDERABLES [facility] [place] [address] * TSH (06/15/2023 4:28 AM EDT) TSH 2.98 0.27 - 4.20 mcIU/mL [facility] Comment: Reference Interval (mcIU/mL): Females: ??First Trimester: 0.23-3.88 ??Second Trimester: 0.22-3.90 ??Third Trimester: 0.44-4.66 Blood 06/15/2023 4:28 AM EDT 06/15/2023 4:37 AM EDT Narrative Resulting Agency Comment Spec In Lab Terrence Keating MD CHEMISTRY ORDERABLES Performing Organization Address City/[facility]/ZIP Co de Phone Number [facility] [place] [address] * Phosphorus (06/15/2023 4:28 AM EDT) Phosphorus 4.4 2.5 - 4.5 mg/dL [facility] Blood 06/15/2023 4:28 AM EDT 06/15/2023 4:37 AM EDT Narrative Resulting Agency Comment Spec In Lab Terrence Keating MD CHEMISTRY ORDERABLES Performing Organization Address City/[facility]/ZIP Co de Phone Number [facility] [place] [address] * (ABNORMAL) Magnesium (06/15/2023 4:28 AM EDT) Magnesium 1.22(H) 0.69 - 1.07 mmol/L [facility] Blood 06/15/2023 4:28 AM EDT 06/15/2023 4:37 AM EDT Narrative Resulting Agency Comment Spec In Lab Terrence Keating MD CHEMISTRY ORDERABLES Performing Organization Address City/[facility]/ZIP Co de Phone Number [facility] [place] [address] * Calcium (06/15/2023 4:28 AM EDT) Calcium 9.7 8.5 - 10.5 mg/dL [facility] Blood 06/15/2023 4:28 AM EDT 06/15/2023 4:37 AM EDT Narrative Resulting Agency Comment Spec In Lab Terrence Keating MD CHEMISTRY ORDERABLES [facility] [address] [place] [address] * (ABNORMAL) Basic Metabolic Panel (non-fasting) (06/15/2023 4:28 AM EDT) Glucose Lvl 112 65 - 199 mg/dL [facility] Comment:Diabetes: >=200 mg/d L plus symptoms BUN 30(H) 8 - 18 mg/dL [facility] Creatinine 1.24(H) 0.70 - 1.20 mg/dL [facility] Sodium 134(L) 135 - 145 mmol/L [facility] Potassium 2.7(Criti edy) 3.5 - 5.0 mmol/L [facility] Comment: Called by: , Read back by: Olive Hernandez, Date/Time:06/15/23 05:16. Please note: ??Patients with WBC >100,000 may have falsely elevated Potassium levels. ??For accurate Potassium quantification in these patients send serum separator tube (gold top) for subsequent determinations. ??Contact the Clinical Chemistry Laboratory if there are any questions. Chloride 90(L) 98 - 107 mmol/L [facility] CO2 28 22 - 31 mmol/L [facility] Anion Gap 16(H) 5 - 15 mmol/L [facility] Calcium 9.7 8.5 - 10.5 mg/dL [facility] Estimated GFR 52(L) >=60 mL/min/1. 73 m?? [facility] Comment: This patient's estimated [...] Keating MD CHEMISTRY ORDERABLES Performing Organization Address City/[facility] Co de Phone Number [facility] [place] [phone] * EKG 12 Lead (06/15/2023 2:17 AM EDT) Ventricular rate 57 BPM MUSE SYSTEM Atrial Rate 57 BPM MUSE SYSTEM P-R Interval 200 ms MUSE SYSTEM QRS Duration 94 ms MUSE SYSTEM Q-T Interval 606 ms MUSE SYSTEM QTC Calculated (Bezet) 591 ms MUSE SYSTEM Calculated P [place] 66 degrees MUSE SYSTEM Calculated R [place] 74 degrees MUSE SYSTEM Calculated T [place] -33 degrees MUSE SYSTEM INTERPRETATION Sinus bradycardia Possible Lateral infarct (cited on or before 17-APR-2023) Marked ST abnormality, possible inferior subendocardial injury Prolonged QTc Abnormal ECG When compared with ECG of 20-APR-2023 10:23, Nonspecific T wave changes QT has lengthened Confirmed by fellow MD Hansa, Sindhu ([id number]) on 06/15/2023 4:36:19 PM Confirmed by MD Angelo Danette ([id number]) on 06/15/2023 4:51:21 PM MUSE SYSTEM 06/15/2023 2:17 AM EDT 06/15/2023 4:51 PM EDT Terrence Keating MD ECG ORDERABLES Performing Organization Address City/[facility]/ZIP Co de Phone Number MUSE SYSTEM documented [...] - Reason: Transfer to a Procedural area)1548 ([facility] Unhold - Provider: Admin Adt) 0855 (Given - Provider: Heidy Paris, ERWIN) 0930 (Given - Provider: Heidy Paris, ERWIN) DULoxetine DR (Cymbalta) capsule 60 mg 60 mg, Oral, DAILY, First dose on Wed06/15/23 at 0900, Until Discontinued, Routine 0853 (Given - Provider: Heidy Paris, ERWIN)1332 ([facility] Hold - Provider: Admin Adt - Reason: Transfer to a Procedural area)1548 ([facility] Unhold - Provider: Admin Adt) 0856 (Given - Provider: Heidy Paris, ERWIN) 0931 (Given - Provider: Heidy Paris RN) gabapentin (Neurontin) capsule 600 mg 600 mg, Oral, NIGHTLY, First dose on Wed06/15/23 at 0200, Until Discontinued, Routine 1332 ([facility] Hold - Provider: Admin Adt - Reason: Transfer to a Procedural area)1548 ([facility] Unhold - Provider: Admin Adt)2136 (Given - [...] Heidy Paris RN - Reason: Patient/family refused)1332 ([facility] Hold - Provider: Admin Adt - Reason: Transfer to a Procedural area)1548 ([facility] Unhold - Provider: Admin Adt) 1000 (Not [...] 0854 (Given - Provider: Heidy Paris RN)1332 ([facility] Hold - Provider: Admin Adt - Reason: Transfer to a Procedural area)1548 ([facility] Unhold - Provider: Admin Adt) 0900 (Not Given - Provider: Heidy Paris RN - Reason: Order parameters not met) 0930 (Given - Provider: Heidy Paris RN) pantoprazole EC (Protonix) tablet 40 mg 40 mg, Oral, DAILY, First dose on Wed06/15/23 at 0900, Until Discontinued 0854 (Given - Provider: Heidy Paris RN)1332 ([facility] Hold - Provider: Admin Adt - Reason: Transfer to a Procedural area)1548 ([facility] Unhold - Provider: Admin Adt) 0856 (Given [...] Heidy Paris RN - Reason: Patient/family refused)1332 ([facility] Hold - Provider: Admin Adt - Reason: Transfer to a Procedural area)1548 ([facility] Unhold - Provider: Admin Adt) 0900 (Not [...] 0853 (Given - Provider: Heidy Paris RN)1332 ([facility] Hold - Provider: Admin Adt - Reason: Transfer to a Procedural area)1548 ([facility] Unhold - Provider: Admin Adt)2136 (Given - [...] Heidy Paris RN - Reason: Patient/family refused)1332 ([facility] Hold - Provider: Admin Adt - Reason: Transfer to a Procedural area)1548 ([facility] Unhold - Provider: Admin Adt) 1000 (Not Given - Provider: Heidy Paris RN - Reason: Patient/family refused) rOPINIRole (Requip) tablet 2 mg 2 mg, Oral, 2 TIMES DAILY, First dose on Wed06/15/23 at 0245, Until Discontinued, Routine 0853 (Given - Provider: Heidy Paris RN)1332 ([facility] Hold - Provider: Admin Adt - Reason: Transfer to a Procedural area)1548 ([facility] Unhold - Provider: Admin Adt)2137 (Given - [...] Heidy Paris RN - Reason: Patient/family refused)1332 ([facility] Hold - Provider: Admin Adt - Reason: Transfer to a Procedural area)1548 ([facility] Unhold - Provider: Admin Adt)2100 (Not Given [...] 0859 (Given - Provider: Heidy Paris RN)1332 ([facility] Hold - Provider: Admin Adt - Reason: Transfer to a Procedural area)1548 ([facility] Unhold - Provider: Admin Adt)2100 (Not Given [...] ordered pain medications are indicated., Routine 1332 ([facility] Hold - Provider: Admin Adt - Reason: Transfer to a Procedural area)1548 ([facility] Unhold - Provider: Admin Adt) albuteroL (Proventil, Ventolin) (2.5 mg/3 mL) (0.083 %) nebulizer solution 2.5 mg 2.5 mg, Nebulization, EVERY 4 HOURS PRN, Starting on Wed07/04/23 at 0857, Until Wed07/09/23 at 1844, Wheezing, Routine 1332 ([facility] Hold - Provider: Admin Adt - Reason: Transfer to a Procedural area)1548 ([facility] Unhold - Provider: Admin Adt) lidocaine (Xylocaine) 1% (10 mg/mL) injection 3 mg 3 mg (0.3 mL), Subcutaneous, ONCE PRN, 1 dose, Starting on Wed06/15/23 at 0146, Until Wed07/09/23 at 1844, for discomfort with PIV insertion, Routine 1332 ([facility] Hold - Provider: Admin Adt - Reason: Transfer to a Procedural area)1548 ([facility] Unhold - Provider: Admin Adt) loratadine (Claritin) tablet 10 mg 10 mg, Oral, DAILY PRN, Starting on Wed06/15/23 at 0146, Until Wed07/09/23 at 1844, allergies, Routine 1332 ([facility] Hold - Provider: Admin Adt - Reason: Transfer to a Procedural area)1548 ([facility] Unhold - Provider: Admin Adt) nitroGLYcerin (Nitrostat) disintegrating tablet 0.4 mg 0.4 mg, Sublingual, EVERY 5 MIN PRN, Starting on Wed06/22/23 at 1119, Until Wed07/09/23 at 1844, Chest pain, SL nitroglycerin may be repeated every 5 minutes as needed up to 3 doses, Routine 1332 ([facility] Hold - Provider: Admin Adt - Reason: Transfer to a Procedural area)1548 ([facility] Unhold - Provider: Admin Adt) 0951 (Given - Provider: Heidy Paris, ERWIN) ondansetron (pf) (Zofran) (2 mg/mL) injection 4 mg 4 mg, Intravenous, EVERY 8 HOURS PRN, Starting on Wed06/29/23 at 1449, Until Wed07/09/23 at 1844, Nausea 1332 ([facility] Hold - Provider: Admin Adt - Reason: Transfer to a Procedural area)1548 ([facility] Unhold - Provider: Admin Adt)2137 (Given - [...] all sources in 24 hours., Routine 1332 ([facility] Hold - Provider: Admin Adt - Reason: Transfer to a Procedural area)1548 ([facility] Unhold - Provider: Admin Adt)2137 (Given - Provider: Lorena Torres, ERWIN) 0855 (Given - Provider: Heidy Paris RN)2120 (Given - Provider: Machelle Busch RN) simethicone (Gas-X Chew) 80 mg chewable tablet 80 mg 80 mg, Oral, EVERY 6 HOURS PRN, Starting on Wed06/20/23 at 0941, Until Wed07/09/23 at 1844, Cramping, Routine 1332 ([facility] Hold - Provider: Admin Adt - Reason: Transfer to a Procedural area)1548 ([facility] Unhold - Provider: Admin Adt) 1344 (Given [...] Routine documented in this encounter Care Teams Store Stock Help Relationship Specialty Start Date End Date Polo Pearce PA [address] [place] [address] PCP - General Internal Medicine 06/09/21 documented as of this encounter
--- OUTSIDE RECORDS SUMMARY | 2023-09-20 18:34 | XMS_ITS | Encounter Summary ---
[place] [address] Care Team Providers Care Senior Power Scheduler Name Role Phone Polo Pearce Primary Care Provider [phone] Reason for Referral * Diagnostic Test (Routine) - Closed Specialty Diagnoses / Procedures Referred By Jayant harris Referred To Contact Radiology Diagnoses Chest pain, unspecified type Procedures NM PET CT Cardiac Sarcoid Maegan Mike [facility] [place] [address] [place] [address] Referral ID Status Reason Start Date Expiration Date V isits Requested Visits Authorized [id number] Closed Specialty Service Requested 04/22/2023 10/20/2024 4 4 Reason for Visit * Diagnostic Test (Routine) - Closed Specialty Diagnoses / Procedures Referred By Jayant harris Referred To Contact Radiology Diagnoses Chest pain, unspecified type Procedures NM PET CT Cardiac Sarcoid Maegan Mike SENIOR IT AUDITOR [facility] [place] [address] [place] [address] Referral ID Status Reason Start Date Expiration Date V isits Requested Visits Authorized [id number] Closed Specialty Service Requested 04/22/2023 10/20/2024 4 4 Encounter Details Date Type Department Care Team (Latest Contact Info) Description 04/30/2023 11:01 AM EST Hospital Encounter [place] [phone] Maegan Mike, [facility] [place] [address] Chest pain, unspecified type Discharge Disposition: Home Social History Tobacco Use Types Packs/Day Years Used Date Smoking Tobacco: Never Smokeless Tobacco: Never Alcohol Use Standard Drinks/Week Comments Never 0 (1 standard drink = 0.6 oz pur e alcohol) [facility] Utilities Answer Date Recorded In the [...] slept in a fpc (including now)? No 04/19/2023 DH IPV Inpatient [...] nightly as needed. 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 90 tablet 1 06/11/2021 rOPINIRole (Requip) 1 mg Tablet Take 2 mg by mouth 2 times daily. 07/16/2020 loratadine (Claritin) 10 mg Tablet Take 10 mg by mouth daily as needed. fluticasone propionate (FLONASE) 50 mcg/actuation [place], Suspension 1 spray by Each Nare route [...] EDT Tech [place] [address] Jose Cook 10/08/2023 9:30 AM EDT Office [place] [phone] MD [facility] [place] [address] 10/21/2023 10:30 AM EDT Appointment [place] [address] Mary Reyes [facility] [place] [address] 10/21/2023 11:30 AM EDT Appointment [place] [address] Mary Reyes [facility] [place] [address] 10/21/2023 12:30 PM EDT Appointment [place] [phone] Mary Reyes [facility] [place] [address] 10/21/2023 1:30 PM EDT Appointment [place] [phone] Mary Reyes [facility] [place] [address] 10/21/2023 2:30 PM EDT Appointment [place] [phone] Mary Reyes [facility] [place] [address] 10/26/2023 4:00 PM EDT Office Visit Cardiology at [address] [phone] Jaspreet Kinsey MD [facility] [place] [address] 10/28/2023 9:00 AM EDT Office Visit [place] [address] 10/29/2023 10:00 AM EDT Clinical Support [place] [address] 10/29/2023 10:15 AM EDT Procedure visit [place] [address] 11/01/2023 5:00 PM EDT Office [place] [address] Selene Browning, PhD [facility] [place] [address] 11/22/2023 4:40 PM EDT Office Visit Cardiology at [address] [address] Porsha Mcdaniels MD [facility] [place] [address] 12/13/2023 10:00 AM EDT Clinical [place] [address] [facility] [place] [address] documented as of this encounter Procedures Procedure [...] who have questions please contact the health clinical care manager that requested 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 ? 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 Following IV administration of 26.5 mCi technetium 99m sestamibi, SPECT-CT of the heart was obtained. Following IV injection of 8.8 mCi 88-abpkzl-9-deoxyglucose (FDG) and a standard uptake of approximately [...] obtained. Following IV injection of 8.8 mCi 84-hzxojk-3-deoxyglucose (FDG) and astandard uptake of approximately 60 [...] patients who have questions please contactthe health clinical care manager that requested 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 Electronically signed by: Humberto Qureshi MD, [facility]([phone]), at 05/06/2023 11:09 AM Maegan Mike APRN IMG PET ORDERABLE S * POCT Glucose (04/30/2023 12:19 PM EST) POC Glucose 79 65 - 199 mg/dL [facility] Comment: Supplemental ranges: <140 mg/dL before meals <180 mg/dL all other times of the day Blood 04/30/2023 12:1 9 PM EST 04/30/2023 12:19 PM EST Maegan Mike APRN POINT OF CARE LYNETTE T ORDERABLES [facility] [place] [address] documented in this encounter Visit Diagnoses Diagnosis [...] Arm documented in this encounter Care Teams Senior Power Scheduler Relationship Specialty Start Date End Date Polo Pearce PA [address] [place] [address] PCP - General Internal Medicine 06/09/21 documented as of this encounter
--- OUTSIDE RECORDS SUMMARY | 2023-09-20 18:34 | XMS_ITS | Encounter Summary ---
Author Organization [facility] Address [facility] [place] [address] Care Team Providers Care Electric Meter Reader Name Role Phone Polo Pearce Primary Care Provider [phone] Encounter Details Date Type Department Care Team (Late st Contact Info) Description 06/14/2023 Telephone Cardiology at [address] [place] [address] Sarah Kahn, MANDOLIN REPAIRER [facility] [address] Social History Tobacco Use Types Packs/Day Years Used Date Smoking Tobacco: Never Smokeless Tobacco: Never Alcohol Use Standard Drinks/Week Comments Never 0 (1 standard drink = 0.6 oz pur e alcohol) [facility] Utilities Answer Date Recorded In the past 12 months has [employer], gas, oil, or water [employer] threatened to shut off services in your [...] AM Referring Provider: Dr. Iyer Patient Location: [facility] Past Medical History: Mild, nonobstructive CAD, s/p [facility] 04/2023 for similar presentation SVT s/p EPS [...] showed no evidence of inflammation/sarcoid. Troponin at [facility] at the time of her event in [...] or examined this patient. Sarah Kahn, MICHELL, LABORATORY CHEMICAL ASSISTANT-BC, MANDOLIN REPAIRER [facility] Cardiovascular Medicine documented in this encounter Plan of Treatment Upcoming Encounters Date Type Department Care Team (Late st Contact Info) Description 10/08/2023 8:30 AM EDT Tech Visit [place] [phone] Jose Cook 10/08/2023 9:30 AM EDT Office Visit Vascular Surgery at [place] [phone] MD [facility] [place] [address] 10/21/2023 10:30 AM EDT Appointment Nuclear Medicine at [address] Mary Reyes [facility] [place] [address] 10/21/2023 11:30 AM EDT Appointment Nuclear Medicine at [place] [phone] Mary Reyes [facility] [place] [address] 10/21/2023 12:30 PM EDT Appointment Nuclear Medicine at [place] [phone] Mary Reyes [facility] [place] [address] 10/21/2023 1:30 PM EDT Appointment Nuclear Medicine at [place] [phone] Mary Reyes [facility] [place] [address] 10/21/2023 2:30 PM EDT Appointment [place] [address] Mary Reyes [facility] [place] [address] 10/26/2023 4:00 PM EDT Office Visit Cardiology at [address] [place] [phone] Jaspreet Kinsey MD [facility] [place] [address] 10/28/2023 9:00 AM EDT Office Visit [place] [address] 10/29/2023 10:00 AM EDT Clinical Support [place] [address] 10/29/2023 10:15 AM EDT Procedure visit [place] [address] 11/01/2023 5:00 PM EDT Office Visit Gastroenterology at [place] [phone] Selene Browning, PhD [facility] [place] [address] 11/22/2023 4:40 PM EDT Office Visit Cardiology at [address] [phone] Porsha Mcdaniels MD [facility] [place] [address] 12/13/2023 10:00 AM EDT Clinical Support [place] [address] [facility] [address] [place] [address] documented as of this encounter Visit Diagnoses Not on filedocumented in this encounter Care Teams Electric Meter Reader Relationship Specialty Start Date End Date Polo Pearce PA [address] [place] [address] PCP - General Internal Medicine 06/09/21 documented as of this encounter
--- OUTSIDE RECORDS SUMMARY | 2023-09-20 18:34 | XMS_ITS | Encounter Summary ---
Author Organization [facility] Address [facility] [place] [address] Care Team Providers Care Machinery Erector Name Role Phone Polo Pearce Primary Care Provider [phone] Encounter Details Date Type Department Care Team (Latest Contact Info) Description 06/22/2023 Travel Social History Tobacco Use Types Packs/Day Years Used Date Smoking Tobacco: Never Smokeless Tobacco: Never Alcohol Use Standard Drinks/Week Comments Never 0 (1 standard drink = 0.6 oz pur e alcohol) [facility] Utilities Answer Date Recorded In the [...] in a assisted (including now)? No 06/15/2023 PENDING SALE TO [facility] Inpatient Questions Answer Date Recorded Does [...] AM EDT Tech [place] [address] Jose Cook 10/08/2023 9:30 AM EDT Office Visit [place] [address] MD [facility] [place] [address] 10/21/2023 10:30 AM EDT Appointment [place] [address] Mary Reyes [facility] [place] [address] 10/21/2023 11:30 AM EDT Appointment [place] [phone] Mary Reyes [employer]IL RIG ROUGHNEC[employer] [facility] [place] [address] 10/21/2023 12:30 PM EDT Appointment [place] [address] Mary Reyes, [facility] [place] [address] 10/21/2023 1:30 PM EDT Appointment [place] [address] Mary Reyes, [facility] [place] [address] 10/21/2023 2:30 PM EDT Appointment [place] [address] Mary Reyes, [facility] [place] [address] 10/26/2023 4:00 PM EDT Office Visit Cardiology at [address] [phone] Jaspreet Kinsey MD [facility] [place] [address] 10/28/2023 9:00 AM EDT Office Visit [place] [address] 10/29/2023 10:00 AM EDT Clinical Support [place] [address] 10/29/2023 10:15 AM EDT Procedure visit [place] [address] 11/01/2023 5:00 PM EDT Office Visit [place] [address] Selene Browning, PhD [facility] [place] [address] 11/22/2023 4:40 PM EDT Office Visit Cardiology at [address] [phone] Porsha Mcdaniels MD [facility] [place] [address] 12/13/2023 10:00 AM EDT Clinical Support [place] [phone] [facility] [place] [address] documented as of this encounter Visit Diagnoses Not on filedocumented in this encounter Care Teams Machinery Erector Relationship Specialty Start Date End Date Polo Pearce PA [address] [place] [address] PCP - General Internal Medicine 06/09/21 documented as of this encounter
--- OUTSIDE RECORDS SUMMARY | 2023-09-20 18:34 | XMS_ITS | Encounter Summary ---
[place] [address] Care Team Providers Care Laborer Concrete Paving Name Role Phone Polo Pearce Primary Care Provider [phone] Reason for Visit * Diagnostic Test (Routine) - Closed Specialty Diagnoses / Procedures Referred By Jayant harris Referred To Contact Radiology Diagnoses Chest pain, unspecified type Procedures NM PET CT Cardiac Sarcoid Maegan Mike [facility] CARDIOLOGY [place] [address] [place] [address] Referral ID Status Reason Start Date Expiration Date V isits Requested Visits Authorized [id number] Closed Specialty Service Requested 04/22/2023 10/20/2024 4 4 Encounter Details Date Type Department Care Team (Latest Contact Info) Description 04/30/2023 11:05 AM EST Hospital En[place] [address] Maegan Mike [facility] CARDIOLOGY [place] [address] Discharge Disposition: Home Social History Tobacco Use Types Packs/Day Years Used Date Smoking Tobacco: Never Smokeless Tobacco: Never Alcohol Use Standard Drinks/Week Comments Never 0 (1 standard drink = 0.6 oz pur e alcohol) [facility] Utilities Answer Date Recorded In the past [...] slept in a residential (including now)? No 04/19/2023 DH IPV Inpatient [...] nightly as needed. 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 90 tablet 1 06/11/2021 rOPINIRole (Requip) 1 mg Tablet Take 2 mg by mouth 2 times daily. 07/16/2020 loratadine (Claritin) 10 mg Tablet Take 10 mg by mouth daily as needed. fluticasone propionate (FLONASE) 50 mcg/actuation [place], Suspension 1 spray by Each Nare route [...] AM EDT Tech [place] [address] Jose Cook 10/08/2023 9:30 AM EDT Office [place] [address] [facility] [place] [address] 10/21/2023 10:30 AM EDT Appointment Nuclear Medicine at [place] [phone] Mary Reyes, [facility] GASTROENTER[place] [address] 10/21/2023 11:30 AM EDT Appointment Nuclear Medicine at [place] [phone] Mary Reyes [facility] GASTROENTER[place] [address] 10/21/2023 12:30 PM EDT Appointment [place] [address] Mary Reyes [facility] GASTROENTER[place] [address] 10/21/2023 1:30 PM EDT Appointment [place] [address] Mary Reyes [facility] GASTRO[place] [address] 10/21/2023 2:30 PM EDT Appointment [place] [address] Mary Reyes [facility] GASTRO[place] [address] 10/26/2023 4:00 PM EDT Office Visit Cardiology at [address] [place] [address] Jaspreet Kinsey MD [facility] [place] [address] 10/28/2023 9:00 AM EDT Office [place] [address] 10/29/2023 10:00 AM EDT Clinical [place] [address] 10/29/2023 10:15 AM EDT Procedure [place] [address] 11/01/2023 5:00 PM EDT Office [place] [phone] Selene Browning, [facility] [place] [address] 11/22/2023 4:40 PM EDT Office Visit Cardiology at [address] [phone] Porsha Mcdaniels MD [facility] [place] [place] [address] 12/13/2023 10:00 AM EDT Clinical [place] [address]-[address] [facility] [place] [address] documented as of this encounter Procedures Procedure [...] mCi documented in this encounter Care Teams Laborer Concrete Paving Relationship Specialty Start Date End Date Polo Pearce PA [address] [place] [address] PCP - General Internal Medicine 06/09/21 documented as of this encounter
--- OUTSIDE RECORDS SUMMARY | 2023-09-20 18:34 | XMS_ITS | Encounter Summary ---
Author Organization [facility] Address [facility] [place] [address] Care Team Providers Care Power System Operator Name Role Phone Polo Pearce Primary Care Provider [phone] Encounter Details Date Type Department Care Team (Latest Contact Info) Description 05/10/2023 Travel Social History Tobacco Use Types Packs/Day Years Used Date Smoking Tobacco: Never Smokeless Tobacco: Never Alcohol Use Standard Drinks/Week Comments Never 0 (1 standard drink = 0.6 oz pur e alcohol) [facility] Utilities Answer Date Recorded In the past [...] to sleep or slept in a senior living (including now)? No 04/19/2023 [facility] Inpatient Questions Answer Date Recorded Does [...] AM EDT Tech [place] [address] Jose Cook 10/08/2023 9:30 AM EDT Office [place] [address] MD [facility] [place] [address] 10/21/2023 10:30 AM EDT Appointment [place] [address] Mary Reyes [facility] [place] [address] 10/21/2023 11:30 AM EDT Appointment [place] [phone] Mary Reyes RN OFFICE [facility] [place] [address] 10/21/2023 12:30 PM EDT Appointment [place] [address] Mary Reyes, [facility] [place] [address] 10/21/2023 1:30 PM EDT Appointment [place] [address] Mary Reyes, [facility] [place] [address] 10/21/2023 2:30 PM EDT Appointment [place] [address] Mary Reyes, [facility] [place] [address] 10/26/2023 4:00 PM EDT Office Visit Cardiology at [address] [phone] Jaspreet Kinsey MD [facility] [place] [address] 10/28/2023 9:00 AM EDT Office Visit [place] [address] 10/29/2023 10:00 AM EDT Clinical Support [place] [address] 10/29/2023 10:15 AM EDT Procedure visit [place] [address] 11/01/2023 5:00 PM EDT Office [place] [address] Selene Browning, PhD [facility] [place] [address] 11/22/2023 4:40 PM EDT Office Visit Cardiology at [address] [phone] Porsha Mcdaniels MD [facility] [place] [address] 12/13/2023 10:00 AM EDT Clinical [place] [phone] [facility] [place] [address] documented as of this encounter Visit Diagnoses Not on filedocumented in this encounter Care Teams Power System Operator Relationship Specialty Start Date End Date Polo Pearce PA [address] [place] [address] PCP - General Internal Medicine 06/09/21 documented as of this encounter
--- OUTSIDE RECORDS SUMMARY | 2023-09-20 18:34 | XMS_ITS | Encounter Summary ---
Author Organization [facility] Address [facility] [place] [address] Care Team Providers Care Antenna Specialist Name Role Phone Polo Pearce Primary Care Provider [phone] Encounter Details Date Type Department Care Team (Late st Contact Info) Description 05/28/2023 Telephone Cardiology at [address] [place] [address] Jaspreet Kinsey [place] [facility] [address] Social History Tobacco Use Types Packs/Day Years Used Date Smoking Tobacco: Never Smokeless Tobacco: Never Alcohol Use Standard Drinks/Week Comments Never 0 (1 standard drink = 0.6 oz pur e alcohol) [facility] Utilities Answer Date Recorded In the past 12 months has [employer], gas, oil, or water sailsquare threatened to shut off services in your [...] slept in a detention (including now)? No 04/19/2023 DH IPV Inpatient [...] has gone up. Please call her @ [phone] * Telephone Encounter - Nilda Mayes, RN - 06/04/2023 9:41 AM EDT Next office visit is scheduled Date Visit Type Department Provider 09/22/2023 3:00 PM FOLLOW UP VISIT Cardiology at [place] Arrive at: [facility] [address]issa Kinsey * Telephone Encounter - Aide Glass - 05/28/2023 10:53 AM EDT Patient had labs done recently. She would like to know what Dr Kinsey thinks about them and what if anything she should be doing. Please call her @ [phone] . documented in this encounter Plan of Treatment Upcoming Encounters Date Type Department Care Team (Late st Contact Info) Description 10/08/2023 8:30 AM EDT Tech Visit Vascular Lab at [place] [phone] Jose Cook 10/08/2023 9:30 AM EDT Office Visit Vascular Surgery at [place] [phone] MD [facility] [place] [address] 10/21/2023 10:30 AM EDT Appointment Nuclear Medicine at [place] [phone] Mary Reyes [facility] [place] [address] 10/21/2023 11:30 AM EDT Appointment Nuclear Medicine at [place] [phone] Mary Reyes [facility] [place] [address] 10/21/2023 12:30 PM EDT Appointment [place] [phone] Mary Reyes [facility] [place] [address] 10/21/2023 1:30 PM EDT Appointment [place] [phone] Mary Reyes [facility] [place] [address] 10/21/2023 2:30 PM EDT Appointment [place] [phone] Mary Reyes APRN [facility] [place] [address] 10/26/2023 4:00 PM EDT Office Visit Cardiology at [address] [phone] Jaspreet Kinsey MD [facility] [place] [address] 10/28/2023 9:00 AM EDT Office [place] [address] 10/29/2023 10:00 AM EDT Clinical [place] [address] 10/29/2023 10:15 AM EDT Procedure visit [place] [address] 11/01/2023 5:00 PM EDT Office Visit Gastroenterology at [place] [phone] Selene Browning, PhD [facility] [place] [address] 11/22/2023 4:40 PM EDT Office Visit Cardiology at [address] [phone] Porsha Mcdaniels MD [facility] [place] [place] [address] 12/13/2023 10:00 AM EDT Clinical Support [place] [phone] Lucero Romero, ALVA [facility] [place] [address] documented as of this encounter Visit Diagnoses Not on filedocumented in this encounter Care Teams Antenna Specialist Relationship Specialty Start Date End Date Polo Pearce PA [address] [place] [address] PCP - General Internal Medicine 06/09/21 documented as of this encounter
--- OUTSIDE RECORDS SUMMARY | 2023-09-20 18:34 | XMS_ITS | Encounter Summary ---
[place] [address] Care Team Providers Care Supervisor Stave Cutting Name Role Phone Polo Pearce Primary Care Provider [phone] Reason for Visit * Auth/Cert (Routine) Specialty Diagnoses / Procedures Referred By Jayant harris Referred To Contact Diagnoses NSTEMI (non-ST elevated myocardial infarction) NSTEMI Procedures ER Lloyd Pantoja MD [facility] [place] [address] [facility] Referral ID Status Reason Start Date Expiration Date Visits Re quested Visits Authorized [id number] 1 1 Encounter Details Date Type Department Care Team (Latest Contact Info) Description 07/02/2023 10:10 AM EDT - 07/02/2023 11:59 PM EDT Hospital En[place] [address] Discharge Disposition: Home Social History Tobacco Use Types Packs/Day Years Used Date Smoking Tobacco: Never Smokeless Tobacco: Never Alcohol Use Standard Drinks/Week Comments Never 0 (1 standard drink = 0.6 oz pur e alcohol) [facility] Utilities Answer Date Recorded In the past 12 months has [employer], gas, oil, or water company threatened [...] place to sleep or slept in a jail (including now)? No 06/15/2023 DH IPV Inpatient [...] as needed. fluticasone propionate (FLONASE) 50 mcg/actuation [place], Suspension 1 spray by Each Nare route [...] ordered. Henrietta Judge MD Vascular Surgery Pager: [phone] 07/02/23 ASA: 3 Mal: 3 Cr: Lab Results Component Value Date CREATININE 1.21 (H) 07/02/2023 * Deborah Ely RN - 07/02/2023 10:56 AM EDT [facility] Name: Indira Roque Date of : 1970 AGE: 53 y.o. Address: [address] [place] [phone] (home) [phone] (work) Mobile: Telephone Information: Referring Provider: Pat [...] groin Right Groin Closure device used: Pro [place] Time sheath removed: 13:12 Time of hemostasis: 13:20 Hematoma present?: no Anticipated up time: 1520 Laboratory Results: Lab Results Component Value Date INR 1.1 06/15/2023 Lab Results Component Value Date CREATININE 1.21 (H) 07/02/2023 Lab Results Component Value Date K 4.1 07/02/2023 Lab Results Component Value Date PLATELET 200 07/02/2023 * Jo Ann Bishop RN - 06/29/2023 8:58 AM EDT [facility] Name: Indira Roque Date of : 1970 AGE: 53 y.o. Address: [address] [place] [address] (home) [phone] (work) Mobile: Telephone Information: Referring Provider: Pat [...] AM EDT Tech [place] [phone] Jose Cook 10/08/2023 9:30 AM EDT Office Visit Vascular Surgery at [place] [phone] MD [facility] [place] [address] 10/21/2023 10:30 AM EDT Appointment Nuclear Medicine at [address] Mary Reyes [facility] [place] [address] 10/21/2023 11:30 AM EDT Appointment Nuclear Medicine at [address] Mary Reyes [facility] [place] [address] 10/21/2023 12:30 PM EDT Appointment Nuclear Medicine at [place] [address] Mary Reyes [facility] [place] [address] 10/21/2023 1:30 PM EDT Appointment Nuclear Medicine at [place] [phone] Mary Reyes [facility] [place] [address] 10/21/2023 2:30 PM EDT Appointment Nuclear Medicine at [place] [phone] Mary Reyes [facility] [place] [address] 10/26/2023 4:00 PM EDT Office Visit Cardiology at [address] [phone] Jaspreet Kinsey MD [facility] [place] [address] 10/28/2023 9:00 AM EDT Office [place] [address] 10/29/2023 10:00 AM EDT Clinical [place] [address] 10/29/2023 10:15 AM EDT Procedure [place] [address] 11/01/2023 5:00 PM EDT Office Visit [place] [phone] Selene Browning, PhD [facility] [place] [address] 11/22/2023 4:40 PM EDT Office Visit Cardiology at [address] [phone] Porsha Mcdaniels MD [facility] [place] [address] 12/13/2023 10:00 AM EDT Clinical Support [place] [address] [facility] [place] [address] documented as of this encounter Procedures Procedure [...] mg documented in this encounter Care Teams Supervisor Stave Cutting Relationship Specialty Start Date End Date Polo Pearce PA [address] [place] [address] PCP - General Internal Medicine 06/09/21 documented as of this encounter
--- OUTSIDE RECORDS SUMMARY | 2023-09-20 18:34 | XMS_ITS | Encounter Summary ---
Author Organization [facility] Address [facility] [place] [address] Care Team Providers Care Electrical Software Engineer Name Role Phone Polo Pearce Primary Care Provider [phone] Reason for Referral * Consultation (Routine) - Closed Specialty Diagnoses / Procedures Referred By Jayant harris Referred To Contact Cardiology Diagnoses Heart failure with preserved ejection fraction, unspecified HF chronicity [place]. thorough evaluation performed to date. Jaspreet Kinsey MD [facility] [place] [address] Porsha Mcdaniels MD [facility] [place] [address] Referral ID Status Reason Start Date Expiration Date V isits Requested Visits Authorized [id number] Closed Consult, Test & Treat 06/09/2023 06/08/2024 1 1 Encounter Details Date Type Department Care Team (Late st Contact Info) Description 06/09/2023 Telephone Cardiology at [address] [place] [address] Jaspreet Kinsey MD [facility] [place] [address] Social History Tobacco Use Types Packs/Day Years Used Date Smoking Tobacco: Never Smokeless Tobacco: Never Alcohol Use Standard Drinks/Week Comments Never 0 (1 standard drink = 0.6 oz pur e alcohol) [facility] Utilities Answer Date Recorded In the [...] in a long term (including now)? No 04/19/2023 DH IPV Inpatient [...] Havejean pierreo placed referral to cardiology at [facility] for further evaluation of what is termed [...] AM EDT Tech [place] [address] Jose Cook 10/08/2023 9:30 AM EDT Office [place] [address] MD [facility] [place] [address] 10/21/2023 10:30 AM EDT Appointment [place] [address] Mary Reyes [facility] [place] [address] 10/21/2023 11:30 AM EDT Appointment Nuclear Medicine at [place] [phone] Mary Reyes [facility] [place] [address] 10/21/2023 12:30 PM EDT Appointment Nuclear Medicine at [place] [phone] Mary Reyes [facility] [place] [address] 10/21/2023 1:30 PM EDT Appointment [place] [address] Mary Reyes [facility] [place] [address] 10/21/2023 2:30 PM EDT Appointment [place] [address] Mary Reyes [facility] [place] [address] 10/26/2023 4:00 PM EDT Office Visit Cardiology at [address] [phone] Jaspreet Kinsey MD [facility] [place] [address] 10/28/2023 9:00 AM EDT Office [place] [address] 10/29/2023 10:00 AM EDT Clinical [place] [address] 10/29/2023 10:15 AM EDT Procedure [place] [address] 11/01/2023 5:00 PM EDT Office Visit Gastroenterology at [place] [phone] Selene Browning, PhD [facility] [place] [address] 11/22/2023 4:40 PM EDT Office Visit Cardiology at [address] [address] Porsha Mcdaniels MD [facility] [place] [address] 12/13/2023 10:00 AM EDT Clinical [place] [address] Lucero Romero, RD [facility] [place] [address] Scheduled Referrals Name Type Priority Associated Diagnoses Orde r Schedule Referral to Cardiology Outpatient Referral Routine Heart failure with preserved ejection fraction, unspecified HF chronicity Ordered: 06/09/2023 documented as of this encounter Visit Diagnoses Diagnosis Heart failure with preserved ejection fraction, unspecified HF chronicity documented in this encounter Care Teams Electrical Software Engineer Relationship Specialty Start Date End Date Polo Pearce PA [address] [place] [address] PCP - General Internal Medicine 06/09/21 documented as of this encounter
--- OUTSIDE RECORDS SUMMARY | 2023-09-20 18:35 | XMS_ITS | Encounter Summary ---
Author Organization Formerly [facility] [place] [address] Care Team Providers Care Facing Cutting Machine Operator Name Role Phone Polo Pearce Primary Care Provider [phone] Reason for Visit * Auth/Cert (Routine) Specialty Diagnoses / Procedures Referred By Jayant harris Referred To Contact Diagnoses NSTEMI (non-ST elevated myocardial infarction) NSTEMI Procedures ER Terrence Pantoja MD [facility] [place] [address] [facility] Referral ID Status Reason Start Date Expiration Date Visits Re quested Visits Authorized [id number] 1 1 Encounter Details Date Type Department Care Team (Late st Contact Info) Description 04/18/2023 9:00 AM EST - 04/18/2023 10:04 [place] [address] Dustin Carrasco MD [facility] [place] [address] CARDIAC CATHETERIZATION Social History Tobacco Use Types Packs/Day Years Used Date Smoking Tobacco: Never Smokeless Tobacco: Never Alcohol Use Standard Drinks/Week Comments Never 0 (1 standard drink = 0.6 oz pur e alcohol) [facility] Utilities Answer Date Recorded In the past 12 months has [employer], oil, or water [employer] threatened to shut off services in your [...] Loida Madrigal Patient Age: 53 y.o. Language: Belizean Admit date: 04/16/2023 Discharge date and time: [...] lung disease secondary to obesity transferred from [facility] for further evaluation of exertional chest pressure and breathlessness. Abnormal OSH troponin 500 and repeat HS Trop at [facility] peak 27 with flat trend and elevated [...] discharge Inpatient Provider Contact Information: Cardiovascular Medicine [phone] Discharge Diagnoses (Hospital Problems) and Secondary Diagnoses [...] motion has increased. CTA PE protocol at [facility]- no PE but showed small pericardial effusion and some GG opacities. History of Presentation: Loida Madrigal is a 53 y.o. with hx of paroxysmal A-fib (diagnosed on 10/20/2022), pulmonary emboli on Eliquis, HFpEF (EF of 59%), supraventricular tachycardia (AVNRT since 06/2021) s/p EPS and SVTablation on 04/01/[address] Tovar on [facility], restrictive lung disease secondary to obesity presents from [facility] with complains of chest discomfort that started overnight. The patient has been experiencing ongoing chest pain, prompting admission on 02/11/23 primarily due to concerns about a NSTEMI indicated by elevated troponin levels and EKG changes noted at OSH. However, the observed EKG changes remained largely consistent with previous recordings. Troponin levels at [facility] showed a plateau at 23 > 27. [...] again 10/15, improving with sublingua Nitro. At [facility] Vitals: HR 48, BP 115/42, O2 [...] #Acute on chronic HFpEF Patient presented to [facility] on 04/16 with chest pain responsive to SL NTG. Troponin ~500x2. Transferredto [facility] further [facility]. Troponin at [facility], 24>23 w/ repeat peak 27->26. She reported [...] days. Refills: 0 fluticasone propionate 50 mcg/actuation [place], Suspension Commonly known as: Flonase 1 spray [...] 9:40 AM Jaspreet Kinsey MD Cardiology at [place] Arrive at: [facility] [address] [phone] 09/21/2023 3:00 PM Jaspreet Kinsey MD Cardiology at [place] Arrive at: [facility] [address] [phone] Discharge References/Attachments None Greater than 30 minutes was spent on this discharge including documentation, kgqe-yq-goim time withthe patient, patient education, mail order clerk, coordination with pharmacy and other [...] away. Stay on the phone. The emergency breaker machine operator will tell you what to do. [...] of 8AM-5PM please call the Cardiology Clinic [phone] to speak with a nurse. All other hours please call the Hospital Insulation Foreman [phone] and ask to speak to the motion picture printer on-call. Return to work: One week Follow up Appointments: Doctor Where Phone # Date Time PCP JOCY Franco [address] [place] [address] 04/28/2023 7:30 AM Profiling Machine Set Up Operator Tool Dr. Kinsey [facility] 05/10/2023 9:40 AM * Attachments The following attachments cannot be sent through Care Everywhere. * Coronary Angiogram: Post-op (Bel[place]an) documented in this encounter Medications at Time [...] nightly as needed. empagliflozin (Jardiance) 10 mg TabletIndications:Statistical Reporting Analyst neal heart failure with preserved ejection fraction Take 1 tablet by mouth daily. 90 tablet 1 06/11/2021 rOPINIRole (Requip) 1 mg Tablet Take 2 mg by mouth 2 times daily. 07/16/2020 loratadine (Claritin) 10 mg Tablet Take 10 mg by mouth daily as needed. fluticasone propionate (FLONASE) 50 mcg/actuation [place], Suspension 1 spray by Each Nare route [...] reviewed with pt, pt wheeled to d/c [facility]. I agree with the information in this [...] note were not included. CARDIOLOGY APP1 - [facility] DAILY PROGRESS NOTE Page [phone] to reach a provider 28/09 Admit Date: [...] disease secondary to obesity who presented to [facility] on 04/16 with chest pain responsive to SL NTG. Troponin ~500x2. Transferred to [facility] for further evaluation. Troponin at [facility], 24>23. Reports exertional chest pressure and dyspnea [...] and no pericardial effusion. She underw ent [facility] on 04/18 which showed non-obstructive ASCVD. Initiated [...] Cardiopulmonary Resuscitation - Inpatient Disposition: [facility] Basic Mobility Raw Score: 24 PT: OT: PCP JOCY Franco [phone] Discussed with MD Kurt Ray PA-C APP1 pager [phone] 04/22/2023 CV HOSPITALIST ADDENDUM Date of Service: [...] 04/21/2023 6:10 PM EST CARDIOLOGY APP1 - [facility] DAILY PROGRESS NOTE Page [phone] to reach a provider 28/09 Admit Date: [...] 12 CRP <=4.9 mg/L <3.0 <3.0 OSH [facility] troponin ~500. Telemetry: I have personally [...] disease secondary to obesity who presented to [facility] on 04/16 with chest pain responsive to SL NTG. Troponin ~500x2. Transferred to [facility] for further evaluation. Troponin at [facility], 24>23. Reports exertional chest pressure and dyspnea [...] occur Diet: Daily Healthy Menu Choices/Cardiac diet ([facility]-Diet) 2 GM NA DVT Prophylaxis: DOAC Code status: Attempt Cardiopulmonary Resuscitation - Inpatient Disposition: Discharge Location: [facility] Basic Mobility Raw Score: 22 PT: OT: PCP JOCY Franco [phone] * Eufemia Copeland MD - 04/20/2023 4:34 PM EST CARDIOLOGY APP1 - [facility] DAILY PROGRESS NOTE Page [phone] to reach a provider 28/09 Admit Date: [...] 12 CRP <=4.9 mg/L <3.0 <3.0 OSH [facility] troponin ~500. Telemetry: I have personally [...] disease secondary to obesity who presented to [facility] on 04/16 with chest pain responsive to SL NTG. Troponin ~500x2. Transferred to [facility] for further evaluation. Troponin at [facility], 24>23. Reports exertional chest pressure and dyspnea [...] occur Diet: Daily Healthy Menu Choices/Cardiac diet ([facility]-Diet) 2 GM NA; 2000 mL FLUID DVT Prophylaxis: DOAC Code status: Attempt Cardiopulmonary Resuscitation - Inpatient Disposition: Discharge Location: [facility] Basic Mobility Raw Score: 24 PT: OT: PCP JOCY Franco [phone] * Carrol La PA - 04/19/2023 12:32 PM EST CARDIOLOGY APP1 - [facility] DAILY PROGRESS NOTE Page [phone] to reach a provider 28/09 Admit Date: [...] 12 CRP <=4.9 mg/L <3.0 <3.0 OSH [facility] troponin ~500. EKG: Sinus bradycardia, 47 bpm, PAC, possible left atrial enlargement, possible lateral infarct, QTc 511. Telemetry: I have personally reviewed and interpreted the telemetry from the last 24 hours. Resultsshow sinus bradycardia with HR 50s, PVCs, heart rate climbs to 70s with activity.. Imaging: [facility] 04/18/23 Conclusions: * Nonobstructive coronary artery disease [...] motion has increased. CTA PE protocol at [facility]- no PE but showed small pericardial [...] PA 38/15 (24) PCWP 11, CO/CI 3.14/1.6. [facility] 08/30/2019-normal coronary arteries. Assessment & Plan: Loida [...] disease secondary to obesity who presented to [facility] on 04/16 with chest pain responsive to SL NTG. Troponin ~500x2. Transferred to [facility] for further evaluation. Troponin at [facility], 24>23. Reports exertional chest pressure and dyspnea [...] and no pericardial effusion. She underw ent [facility] on 04/18 which showed non-obstructive ASCVD. Unclear [...] continues. Diet: Daily Healthy Menu Choices/Cardiac diet ([facility]-Diet) 2 GM NA; 2000 mL FLUID DVT Prophylaxis: DOAC Code status: Attempt Cardiopulmonary Resuscitation - Inpatient Disposition: [facility]charge [facility] Basic Mobility Raw Score: 24 PT: OT: PCP JOCY Franco [phone] Discussed with MD Carrol Aly PA-C APP1 Pager: [phone] 04/19/2023 IE * Nikkie Lew RCP - [...] note were not included. CARDIOLOGY APP1 - [facility] DAILY PROGRESS NOTE Page [phone] to reach a provider 28/09 Admit Date: [...] breathlessness. Awaiting cardiac catheterization potentially today if Chick Sexer availability allows.She remains on ACS therapies. Medications: [...] 12 CRP <=4.9 mg/L <3.0 <3.0 OSH [facility] troponin ~500. EKG: Sinus bradycardia, 47 [...] motion has increased. CTA PE protocol at [facility]- no PE but showed small pericardial [...] lung disease secondary to obesity presents from [facility] with complains of exertional chest pressure and [...] or NTG drip if ongoing chest pain -[facility] 04/18 depending on Chick Sexer availability. #Hx of pAfib #Hx of AVNRT sp EPS and Ablation - hold eliquis. Last taken on 04/16/23 am. - Continue IV heparin. # Hx of PE- continue with IV heparin #AMRYLOU- auto titrate CPAP ordered. # Migraine- uses [...] Score: 24 PT: OT: PCP JOCY Franco [phone] Discussed with MD Kurt Sheppard PA-C APP1 pager [phone] 04/18/2023 * Kurt Silveira PA - 04/17/2023 7:15 AM EST Images from the original note were not included. CARDIOLOGY APP1 - [facility] DAILY PROGRESS NOTE Page [phone] to reach a provider 28/09 Admit Date: [...] 12 CRP <=4.9 mg/L <3.0 <3.0 OSH [facility] troponin ~500. EKG: Sinus bradycardia, 47 [...] motion has increased. CTA PE protocol at [facility]- no PE but showed small pericardial [...] PA 38/15 (24) PCWP 11, CO/CI 3.14/1.6. [facility] 08/30/2019-normal coronary arteries. Assessment & Plan: Loida [...] lung disease secondary to obesity presents from [facility] with complains of exertional chest pressure and [...] intensity atorvastatin 80mg PO daily, and holding beta-tiffanei with sinus bradycardia. Sublingual NTG as needed and if recurrent discomforts not responding, consider NTG infusion. - NTG + morphine PRN chest pain or NTG drip if ongoing chest pain -[facility] 04/18 or 04/19 depending on Chick Sexer availability. #Hx of pAfib #Hx of AVNRT sp EPS and Ablation - hold eliquis. Last taken on 04/16/23 am. - Continue IV heparin. # Hx of PE- continue with IV heparin Diet: No diet orders on file DVT Prophylaxis: DOAC Code status: Attempt Cardiopulmonary Resuscitation - Inpatient Disposition: Discharge Location: [facility] Basic Mobility Raw Score: 14 PT: OT: PCP JOCY Franco [phone] Discussed with MD Kurt Sheppard PA-C APP1 pager [phone] 04/17/2023 documented in this encounter H&P Notes [...] SVTablation on 04/01/[address] Tovar on [facility], restrictive lung disease secondary to obesity presents from [facility] with complains of chest discomfort that started overnight. The patient has been experiencing ongoing chest pain, prompting admission on 02/11/23 primarily due to concerns about a NSTEMI indicated by elevated troponin levels and EKG changes noted at OSH. However, the observed EKG changes remained largely consistent with previous recordings. Troponin levels at [facility] showed a plateau at 23 > 27. [...] again 10/15, improving with sublingua Nitro. 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 fluticasone propionate (FLONASE) 50 mcg/actuation [place], Suspension 1 spray by Each Nare route [...] SVTablation on 04/01/[address] Tovar on [facility], restrictive lung disease secondary to obesity presents from [facility] with complains of chest discomfort that started [...] if hypotensive / cardiogenic shock / inferior IA / sildenafil within past 24 hours) - [...] N/A Patient is insured through: Primary Insurance: [employer] BLUE [place] Payor: [employer] [place] / Plan[place] / Product Type: *No Product type* / Secondary Insurance: N/A Prescription Coverage: Yes This plan was formulated with input from patient and team. All are in agreement with plan. * Consult Note - Maegan Mike APRN - 04/22/2023 10:38 AM EST Images from the original note were not included. [facility] [place] [address] INPATIENT CARDIOLOGY CONSULT PROGRESS NOTE Interval events: [...] insights. Discussed with MD Maegan De Leon, FIG CAPRIFIER Pager [phone] 04/22/2023 Associated attestation - Jaspreet Kinsey MD [...] Tatum MSW - 04/20/2023 2:22 PM EST LUGGAGE ATTENDANT received a consult to support patient with financial concerns. LUGGAGE ATTENDANT met with patient and introduced self. Patient stated due to hospitalization, she has been out of work and feeling stress around not being able to pay bills. I have a car payment and other bills and it's like I have to choose which one to pay and which one not to pay. LUGGAGE ATTENDANT validated patient's stress around financial concerns. LUGGAGE ATTENDANT asked patient if she has applied for [employer] or any other state benefits. Patient stated that she has, but is over the household income criteria to qualify for benefits. Patient shared that she owns her home outright and mainly concerned about making her car payment and transportation home. MSWstated that care management will help arrange for a ride, if needed. LUGGAGE ATTENDANT provided patient with community resources such as the [facility] Food Directory, the [facility] Community Action phone number, and the [facility] Richards on Aging contact info. LUGGAGE ATTENDANT available to support patient should anything else [...] Admitted From: Transfer from another hospital Location: [facility] Reason for Hospitalization: chest pain and cough Covid Vaccination Status: 1st, 2nd & booster Last COVID test: Lab Results Component Value Date [id number] Not Detected 06/13/2021 Past medical History: Past [...] shut off services in your home?: Yes ([employer] is currently threatening to shut off electricity [...] ([facility]) Home Address confirmed as: [facility] [facility] [address] Social & Family Supports: All names listed [...] Specific Information: N/A Health/Prescription Coverage: Primary Insurance: [employer] [place] Payor: [employer] [place] / Plan[place] / Product Type: *No Product type* / Secondary Insurance: N/A ; Prescription Coverage: Yes Preferred Pharmacy: [facility] - [facility], [place] - [address] [facility] [address] [facility] - [place], [place] - [address] [facility] [address] [place] Status: Patient is a : No Primary Care Provider confirmed: JOCY Franco [phone] Patient/Caregiver Goals of Treatment: home w / family when MR Potential Needs for Transition of Care: other (see comments) (LUGGAGE ATTENDANT support; pt's spouse was denied twice for [...] Concerns to be Addressed: financial/insurance, discharge planning; LUGGAGE ATTENDANT consult placed to discuss available resources Assessment: Patient is admitted to [facility] service for NSTEMI Plan: pending clinical course, but likely home w/o services when MR A member of the Care Management team will continue to monitor progress, follow for continuity of care and assist with transition of care planning. * Consult Note - Otis Rader MD - 04/19/2023 10:00 AM EST Images from the original note were not included. [facility] [place] [address] INPATIENT CARDIOLOGY CONSULT NOTE Reason for Consult: [...] ACS with DAPT and heparin prior to [facility] 04/18, which was negative for any obstructive [...] Went to cathlab, came back ~1115am, s/p [facility] with no coronary artery disease seen. Right [...] for further details. JOCY Marie 04/17/2023 Pager [phone] * Plan of Care - Sudhakar Smith [...] AM EDT Tech [place] [address] Jose Cook 10/08/2023 9:30 AM EDT Office Visit Vascular Surgery at [address] MD [facility] [place] [address] 10/21/2023 10:30 AM EDT Appointment Nuclear Medicine at [address], [facility] [place] [address] 10/21/2023 11:30 AM EDT Appointment Nuclear Medicine at [place] [phone] Mary Reyes, [facility] [address] 10/21/2023 12:30 PM EDT Appointment Nuclear Medicine at [place] [phone] Mary Reyes [facility] [place] [address] 10/21/2023 1:30 PM EDT Appointment Nuclear Medicine at [place] [phone] Mary Reyes [facility] [place] [address] 10/21/2023 2:30 PM EDT Appointment Nuclear Medicine at [place] [phone] Mary Reyes, [facility] [address] 10/26/2023 4:00 PM EDT Office Visit Cardiology at [address] [phone] Jaspreet Kinsey MD [facility] [place] [address] 10/28/2023 9:00 AM EDT Office [place] [address] 10/29/2023 10:00 AM EDT Clinical [place] [address] 10/29/2023 10:15 AM EDT Procedure [place] [address] 11/01/2023 5:00 PM EDT Office [place] [phone] Selene Browning, PhD [facility] [place] [address] 11/22/2023 4:40 PM EDT Office Visit Cardiology at [address] [phone] Porsha Mcdaniels MD [facility] [place] [address] 12/13/2023 10:00 AM EDT Clinical [place] [phone] [facility] [place] [address] documented as of this encounter Procedures Procedure [...] who have questions please contact the health emergency care tech that requested 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 ? 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 Following IV administration of 26.5 mCi technetium 99m sestamibi, SPECT-CT of the heart was obtained. Following IV injection of 8.8 mCi 60-gflfuy-4-deoxyglucose (FDG) and a standard uptake of approximately [...] obtained. Following IV injection of 8.8 mCi 76-ylqhwv-4-deoxyglucose (FDG) and astandard uptake of approximately 60 [...] patients who have questions please contactthe health emergency care tech that requested 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 Electronically signed by: Humberto Qureshi MD, [facility]([phone]), at 05/06/2023 11:09 AM Maegan Mike FIG CAPRIFIER IMG PET ORDERABLE S * MRI Cardiac [...] who have questions please contact the health emergency care tech that requested 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 ? Electronically signed by: Karon Nur MD, [facility] ([phone]), at 04/21/2023 5:33 PM Narrative 04/21/2023 5:33 [...] patients who have questions please contactthe health emergency care tech that requested 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 Terrence Maloney MD IMG MRI ORDERABLES * Hemogram (04/21/2023 3:40 AM EST) WBC 7.1 4.0 - 9.5 x10(3)/[facility] LABORATORY RBC 4.59 4.00 - 5.21 x10(6)/[facility] LABORATORY Hemoglobin 14.4 11.7 - 15.5 g/dL [facility] Hematocrit 43.0 35.7 - 45.8 % [facility] MCV 93.7 82.6 - 94.4 fL [facility] MCH 31.4 27.1 - 32.0 pg [facility] MCHC 33.5 31.7 - 35.0 g/dL [facility] Platelets 221 145 - 357 x10(3)/[facility] LABORATORY RDWSD 43.5 37.0 - 46.0 [facility] LABORATORY RDWCV 12.6 11.5 - 14.1 % [facility] MPV 11.1 7.6 - 12.9 fL [facility] nRBC % Auto 0.0 % [facility] nRBC Abs Auto 0.000 0.000 - 0.000 x10(3)/mcL [facility] Blood 04/21/2023 3:40 AM EST 04/21/2023 3:58 AM EST Narrative Resulting Agency Comment Spec In Lab Ailyn Knight MD HEMATOLOGY ORDERABLE S Performing Organization Address City/State/[facility] Co de Phone Number [facility] [place] [address] * (ABNORMAL) BMP w/fasting Glucose (04/21/2023 3:40 AM EST) Glucose Fasting 107(H) 65 - 99 mg/dL [facility] Comment: ?Fasting* Glucose Interpretive Criteria [...] of Diabetes Mellitus, Position Statement from the [place] [employer]. ??Diabetes Care, Volume 33, Supplement 1, Mar 2009 BUN 20(H) 8 - 18 mg/dL [facility] Creatinine 1.14 0.70 - 1.20 mg/dL [facility] Sodium 138 135 - 145 mmol/L [facility] Potassium 3.8 3.5 - 5.0 mmol/L [facility] Comment: Please note: ??Patients with WBC >100,000 may have falsely elevated Potassium levels. ??For accurate Potassium quantification in these patients send serum separator tube (gold top) for subsequent determinations. ??Contact the Clinical Chemistry Laboratory if there are any questions. Chloride 106 98 - 107 mmol/L [facility] CO2 22 22 - 31 mmol/L [facility] Anion Gap 10 5 - 15 mmol/L [facility] Calcium 9.2 8.5 - 10.5 mg/dL [facility] Estimated GFR 57(L) >=60 mL/min/1. 73 m?? [facility] Comment: This patient's estimated GFR [...] In Lab Ailyn Knight MD CHEMISTRY ORDERABLES [facility] [place] [address] * Magnesium (04/21/2023 3:40 AM EST) Magnesium 0.90 0.69 - 1.07 mmol/L [facility] Blood 04/21/2023 3:40 AM EST 04/21/2023 3:58 AM EST Narrative Resulting Agency Comment Spec In Lab Ailyn Knight MD CHEMISTRY ORDERABLES Performing Organization Address City/[facility]/ZIP Co de Phone Number [facility] [place] [address] * (ABNORMAL) Troponin (04/20/2023 4:44 PM EST) Troponin-T HS 26(H) <=14 ng/L [facility] Comment: [...] troponin value can be found in the [facility] Test Catalog Troponin - [facility] Test Catalog Reference: Fourth [place] Definition of Myocardial Infarction. Journal of the [place] [employer] 2018;72:3450-4656 Blood 04/20/2023 4:44 PM EST 04/20/2023 4:53 PM EST Narrative Resulting Agency Comment Spec In Lab Eufemia Copeland MD [place] [address] * Duplex for DVT, Arm, Unilat (04/20/2023 4:22 PM EST) Text Report Department: Vascular Surgery Lab Patient: [id number] (NEISHA LOIDA) CPT: 45740 Referring Physician: TERRENCE MALONEY ?? Phone: Indications: [...] PM EST) Troponin-T HS 27(H) <=14 ng/L [facility] Comment: [...] troponin value can be found in the [facility] Test Catalog Troponin - [facility] Test Catalog Reference: Fourth [place] Definition of Myocardial Infarction. Journal of the [place] [employer] 2018;72:0257-3248 Blood 04/20/2023 1:47 PM EST 04/20/2023 2:18 PM EST Narrative Resulting Agency Comment Spec In Lab Eufemia Copeland MD CHEMISTRY ORDERABL ES Performing Organization Address City/[facility]/ZIP Co de Phone Number [facility] [place] [address] * (ABNORMAL) Troponin (04/20/2023 10:48 AM EST) Troponin-T HS 24(H) <=14 ng/L [facility] Comment: [...] troponin value can be found in the [facility] Test Catalog Troponin - [facility] Test Catalog Reference: Fourth [place] Definition of Myocardial Infarction. Journal of the [place] [employer] 2018;72:9989-8992 Blood 04/20/2023 10:4 8 AM EST 04/20/2023 11:03 AM EST Narrative Resulting Agency Comment Spec In Lab Eufemia Copeland MD CHEMISTRY ORDERABL ES Performing Organization Address City/[facility]/ZIP Co de Phone Number [facility] [place] [address] * EKG 12 Lead (04/20/2023 10:23 AM EST) Pathologist [facility] Ventricular rate 60 BPM MUSE SYSTEM Atrial Rate 60 BPM MUSE SYSTEM P-R Interval 170 ms MUSE SYSTEM QRS Duration 86 ms MUSE SYSTEM Q-T Interval 470 ms MUSE SYSTEM QTC Calculated (Bezet) 470 ms MUSE SYSTEM Calculated P Watts 39 degrees MUSE SYSTEM Calculated R Watts 63 degrees MUSE SYSTEM Calculated T Watts -16 degrees MUSE SYSTEM INTERPRETATION Normal sinus [...] leads Confirmed by MD Eli, Manish Tol[place] ([id number]) on 04/22/2023 12:10:07 PM MUSE SYSTEM 04/20/2023 10:2 3 AM EST 04/22/2023 12:10 PM EST Terrence Maloney MD ECG ORDERABLES MUSE SYSTEM * Hemogram (04/20/2023 3:11 AM EST) [facility] WBC 6.6 4.0 - 9.5 x10(3)/[facility] RBC 4.59 4.00 - 5.21 x10(6)/[facility] Hemoglobin 14.2 11.7 - 15.5 g/dL [facility] Hematocrit 42.7 35.7 - 45.8 % [facility] MCV 93.0 82.6 - 94.4 fL [facility] MCH 30.9 27.1 - 32.0 pg [facility] MCHC 33.3 31.7 - 35.0 g/dL [facility] Platelets 231 145 - 357 x10(3)/[facility] RDWSD 43.6 37.0 - 46.0 fL [facility] RDWCV 12.6 11.5 - 14.1 % [facility] MPV 11.0 7.6 - 12.9 fL [facility] nRBC % Auto 0.0 % [facility] nRBC Abs Auto 0.000 0.000 - 0.000 x10(3)/mcL [facility] Blood 04/20/2023 3:11 AM EST 04/20/2023 3:24 AM EST Narrative Resulting Agency Comment Spec In Lab Ailyn Knight MD HEMATOLOGY ORDERABLE S Performing Organization Address City/State/[facility] Co de Phone Number [facility] [place] [address] * (ABNORMAL) BMP w/fasting Glucose (04/20/2023 3:11 AM EST) Glucose Fasting 107(H) 65 - 99 mg/dL [facility] Comment: ?Fasting* Glucose Interpretive Criteria [...] of Diabetes Mellitus, Position Statement from the [place] [employer]. ??Diabetes Care, Volume 33, Supplement 1, Mar 2009 BUN 20(H) 8 - 18 mg/dL [facility] Creatinine 1.05 0.70 - 1.20 mg/dL [facility] Sodium 139 135 - 145 mmol/L [facility] Potassium 3.6 3.5 - 5.0 mmol/L [facility] Comment: Please note: ??Patients with WBC >100,000 may have falsely elevated Potassium levels. ??For accurate Potassium quantification in these patients send serum separator tube (gold top) for subsequent determinations. ??Contact the Clinical Chemistry Laboratory if there are any questions. Chloride 106 98 - 107 mmol/L [facility] CO2 21(L) 22 - 31 mmol/L [facility] Anion Gap 12 5 - 15 mmol/L [facility] Calcium 9.3 8.5 - 10.5 mg/dL [facility] Estimated GFR 63 >=60 mL/min/1. 73 m?? [facility] Comment: This patient's estimated GFR [...] Knight MD CHEMISTRY ORDERABLES Performing Organization Address City/[facility]/ZIP Co de Phone Number [facility] [place] [address] * Magnesium (04/20/2023 3:11 AM EST) Magnesium 0.91 0.69 - 1.07 mmol/L [facility] Blood 04/20/2023 3:11 AM EST 04/20/2023 3:24 AM EST Narrative Resulting Agency Comment Spec In Lab Ailyn Knight MD CHEMISTRY ORDERABLES Performing Organization Address City/[facility]/ZIP Co de Phone Number [facility] [place] [address] * Respiratory Panel PCR (04/19/2023 2:05 PM EST) Resp Panel Source SENIOR CYTOGENETIC TECHNOLOGIST Swab [facility] Resp Panel PCR Negative Negative [facility] Comment: Respiratory Panels are performed on the [employer], using multiplexed PCR nucleic acid detection. ??Negative results do not preclude respiratory infection and should not be used as the sole basis for diagnosis, treatment or other management decisions. Adenovirus Not Detected Not Detected [facility] Coronavirus HKU1 Not Detected Not Detected [facility] Coronavirus NL63 Not Detected Not Detected [facility] Coronavirus 229E Not Detected Not Detected [facility] Coronavirus OC43 Not Detected Not Detected [facility] SARS-CoV-2 Not Detected Not Detected [facility] Comment: Testing for SARS-CoV-2 (Severe acute respiratory syndrome coronavirus 2) to aid in the diagnosis of COVID-19 is performed using the [employer] Respiratory Panel 2.1 ([employer]) as authorized by the FDA issued Emergency Use Authorization (EUA). This panel also tests for multiple other viral and bacterial pathogens. This assay is intended for In-vitro Diagnostic (IVD) use with nasopharyngeal swabs in viral transport media. The assay is performed based on the instructions for use and additional guidance provided by the FDA. Testing is performed in laboratories within the [facility], each of which is certified under the [...] fact sheets at the following FDA website: https://www.fda.gov/medical-devices/aefexcjoqvu-dmtqxyf-0638-rjgwn-16-vgjyotgbu- use-a yshwmspttluqo-hruayqp-kmoduxy/gikkh-qhhiurdfxpl-xlrv Human Metapneumovirus Not Detected Not Detected [facility] Human Rhino/Enterovirus Not Detected Not Detected [facility] Influenza A Not Detected Not Detected [facility] Influenza B Not Detected Not Detected [facility] Parainfluenza 1 Not Detected Not Detected [facility] Parainfluenza 2 Not Detected Not Detected [facility] Parainfluenza 3 Not Detected Not Detected [facility] Parainfluenza 4 Not Detected Not Detected [facility] Respiratory Syncytial Virus Not Detected Not Detected [facility] Chlamydophila pneumoniae Not Detected Not Detected [facility] Mycoplasma pneumoniae Not Detected Not Detected [facility] Nasopharyngeal Swab Other / Unknown 04/19 2:05 PM EST 04/19/2023 3:16 PM EST Narrative Resulting Agency Comment Spec In Lab Carrol SANDRA MICROBIOLOGY - GENER AL ORDERABLES [facility] [place] [address] * (ABNORMAL) Urine culture (04/19/2023 10:25 AM EST) Urine Culture 10,000-49,000 cfu/ml mixed mucosal elmer Note: Culture shows multiple bacterial species suggesting mucosal contamination. (A) [facility] Clean Catch Urine 04/19/2023 10:25 AM EST 04/19/2023 12:49 PM EST Narrative Resulting Agency Comment Spec In Lab Carrol SANDRA MICROBIOLOGY - GENER AL ORDERABLES Performing Organization Address City/[facility]/ZIP Co de Phone Number [facility] [place] [address] * (ABNORMAL) Urinalysis Microscopic Exam (04/19/2023 10:25 AM EST) RBC UA 1 0 - 4 /HPF [facility] WBC UA 10(H) 0 - 5 /HPF [facility] Squam Epith UA 4 <=4 /HPF [facility] Hyaline Cast UA 1 0 - 2 /LPF [facility] Clean Catch Urine 04/19/2023 10:25 AM EST 04/19/2023 11:08 AM EST Narrative Resulting Agency Comment Spec In Lab Carrol SANDRA URINE ORDERABLES [facility] [place] [address] * (ABNORMAL) Urinalysis with reflex Culture (04/19/2023 10:25 AM EST) Glucose UA >=1000(Crit ical) Negative mg/dL [facility] Comment: Urinalysis result NOT critical without a combination of Glucose greater than or equal to 500 mg/dL AND Ketones greater than or equal to 80 mg/dL Protein UA Negative Negative mg/dL [facility] Bilirubin UA Negative Negative mg/dL [facility] Comment: Clinical correlation required for positive Urine Bilirubin results as false positive may occur with some drugs and drug related products. If a false positive is suspected a serum total bilirubin should be considered if clinically indicated. Urobilinogen UA Normal Normal mg/dL [facility] pH UA 5.5 5.0 - 8.0 [facility] Blood UA Negative Negative mg/dL [facility] Ketones UA Negative Negative mg/dL [facility] Nitrite UA Negative Negative [facility] Leukocytes UA Small(A) Negative [facility] Appearance UA Clear Clear [facility] Spec [place] UA 1.024 1.005 - 1.030 [facility] Color UA Yellow Yellow [facility] Culture Reflexed Yes [facility] Clean Catch Urine 04/19/2023 10:25 AM EST 04/19/2023 11:08 AM EST Narrative Resulting Agency Comment Spec In Lab Ailyn Knight MD URINE ORDERABLES [facility] [place] [address] * Arterial Duplex Arm, Unilat (04/19/2023 9:40 AM EST) VB Text Report Department: Vascular Surgery Lab Patient: [id number] (LOIDA MADRIGAL) CPT: 35746 Referring Physician: AILYN KNIGHT ?? Phone: Indications: [...] AM EST) WBC 7.5 4.0 - 9.5 x10(3)/[facility] RBC 4.86 4.00 - 5.21 x10(6)/[facility] Hemoglobin 14.8 11.7 - 15.5 g/dL [facility] Hematocrit 45.5 35.7 - 45.8 % [facility] MCV 93.6 82.6 - 94.4 fL [facility] MCH 30.5 27.1 - 32.0 pg [facility] MCHC 32.5 31.7 - 35.0 g/dL [facility] Platelets 240 145 - 357 x10(3)/[facility] RDWSD 43.8 37.0 - 46.0 [facility] RDWCV 12.7 11.5 - 14.1 % [facility] MPV 11.0 7.6 - 12.9 [facility] nRBC % Auto 0.0 % [facility] nRBC Abs Auto 0.000 0.000 - 0.000 x10(3)/[facility] Blood 04/19/2023 2:40 AM EST 04/19/2023 2:57 AM EST Narrative Resulting Agency Comment Spec In Lab Ailyn Knight MD HEMATOLOGY ORDERABLE S Performing Organization Address City/State/[facility] Co de Phone Number [facility] [place] [address] * (ABNORMAL) BMP w/fasting Glucose (04/19/2023 2:40 AM EST) Glucose Fasting 106(H) 65 - 99 mg/dL [facility] Comment: ?Fasting* Glucose Interpretive Criteria [...] of Diabetes Mellitus, Position Statement from the [place] Diabetes Association. ??Diabetes Care, Volume 33, Supplement 1, Mar 2009 BUN 22(H) 8 - 18 mg/dL [facility] Creatinine 1.11 0.70 - 1.20 mg/dL [facility] Sodium 139 135 - 145 mmol/L [facility] Potassium 4.0 3.5 - 5.0 mmol/L [facility] Comment: Please note: ??Patients with WBC >100,000 may have falsely elevated Potassium levels. ??For accurate Potassium quantification in these patients send serum separator tube (gold top) for subsequent determinations. ??Contact the Clinical Chemistry Laboratory if there are any questions. Chloride 105 98 - 107 mmol/L [facility] CO2 20(L) 22 - 31 mmol/L [facility] Anion Gap 14 5 - 15 mmol/L [facility] Calcium 9.5 8.5 - 10.5 mg/dL [facility] Estimated GFR 59(L) >=60 mL/min/1. 73 m?? [facility] Comment: This patient's estimated GFR [...] In Lab Ailyn Knight MD CHEMISTRY ORDERABLES [facility] [place] [address] * Magnesium (04/19/2023 2:40 AM EST) Magnesium 0.97 0.69 - 1.07 mmol/L [facility] Blood 04/19/2023 2:40 AM EST 04/19/2023 2:57 AM EST Narrative Resulting Agency Comment Spec In Lab Ailyn Knight MD CHEMISTRY ORDERABLES Performing Organization Address [facility]/ZIP Co de Phone Number [facility] [place] [address] * CARDIAC CATHETERIZATION (04/18/2023 11:05 AM EST) Anatomical Region Laterality Modality Other Narrative 04/19/2023 6:57 AM EST ?[facility] ? Cardiac Catheterization/Intervention Report ? Patient Name: Neisha, Loida ? Procedure Date: 04/18/2023 ? A #: [id number] ? Primary Physician: Young, Dustin N ? Case #: [id number] ? File Name: [id number] ? Catheterization Order Number: [id number] ? [facility] ? Final Report [place], [place] ? Patient Name: ? Loida Neisha ? ID#: ?[id number] ? : ?1970 ? Procedure Date: ? [...] procedure was Urgent. The indication for ?the cardiac cath tech visit is ACS greater than 24 hrs. [...] Procedure Note Dustin Carrasco MD - 05/03/2023 [facility] Cardiac Catheterization/Intervention Report Patient Name: Loida Madrigal Procedure Date: 04/18/2023 A #: [id number] Primary Physician: Dustin Carrasco Case #: [id number] File Name: [id number] Catheterization Order Number: [id number] [facility] FinalReport [place], [place] Patient Name: Loida Madrigal ID#:[id number] :1970 Procedure Date: April 18, 2023 Case [...] patient was designated as ASA Class III. TheOHIOHEALTH clinical frailty scale is 4: Vulnerable. Diagnostic [...] diagnostic procedure was Urgent. The indicationfor the cardiac cath tech visit is ACS greater than 24 hrs. [...] units of heparin were administered. A total mo639pd of Omnipaque were opened, 65cc of Omnipaque were administered cmu59ne of Omnipaque were wasted. Radiation: Fluoro time [...] AM EST) Heparin UFH Level 0.39 IU/mL [facility] Comment: Heparin (anti-Xa) levels should [...] Lab Terrence Maloney MD HEMATOLOGY ORDERABLE S [facility] [place] [address] * Differential, Automated (04/18/2023 2:10 AM EST) Neutrophils % 51.4 % [facility] Neutr Abs (ANC) 3.43 1.70 - 6.10 x10(3)/[facility] Lymphocytes % 33.8 % [facility] Lymphocytes Abs 2.2 0.9 - 3.2 x10(3)/[facility] Monocytes % 9.9 % [facility] Monocyte Abs 0.7 0.3 - 0.9 x10(3)/[facility] Eosinophils % 3.9 % [facility] Eosinophils Abs 0.3 0.0 - 0.4 x10(3)/[facility] Basophils % 0.8 % [facility] Basophils Abs 0.0 0.0 - 0.1 x10(3)/[facility] Immature Gran % 0.20 % [facility] Comment: Immature granulocytes(IG's)percentage and absolute count will include metamyelocytes, myelocytes, and promyelocytes. Blood smears from CBCs yielding IG's will be scanned manually for concordance. If this scan disagrees with the automated IG or if promyelocytes are noted, a manual differential will be performed. Shonda Gran Abs 0.01 0.00 - 0.04 x10(3)/[facility] Blood 04/18/2023 2:10 AM EST 04/18/2023 2:44 AM EST Narrative Resulting Agency Comment Spec In Lab Terrence Maloney MD HEMATOLOGY ORDERABLE S Performing Organization Address City/[facility] Co de Phone Number [facility] [place] [address] * Hemogram (04/18/2023 2:10 AM EST) WBC 6.7 4.0 - 9.5 x10(3)/[facility] RBC 4.93 4.00 - 5.21 x10(6)/[facility] Hemoglobin 15.2 11.7 - 15.5 g/dL [facility] Hematocrit 44.9 35.7 - 45.8 % [facility] MCV 91.1 82.6 - 94.4 fL [facility] MCH 30.8 27.1 - 32.0 pg [facility] MCHC 33.9 31.7 - 35.0 g/dL [facility] Platelets 233 145 - 357 x10(3)/[facility] RDWSD 42.0 37.0 - 46.0 [facility] RDWCV 12.8 11.5 - 14.1 % [facility] MPV 11.3 7.6 - 12.9 [facility] nRBC % Auto 0.0 % [facility] nRBC Abs Auto 0.000 0.000 - 0.000 x10(3)/[facility] Blood 04/18/2023 2:10 AM EST 04/18/2023 2:44 AM EST Narrative Resulting Agency Comment Spec In Lab Terrence Maloney MD HEMATOLOGY ORDERABLE S [facility] [place] [address] * Heparin (unfractionated) Level (04/18/2023 2:10 AM EST) Heparin UFH Level 0.50 IU/mL [facility] Comment: Heparin (anti-Xa) levels should [...] MD HEMATOLOGY ORDERABLE S Performing Organization Address [facility] Co de Phone Number [facility] [place] [address] * (ABNORMAL) BMP w/fasting Glucose (04/18/2023 2:10 AM EST) Glucose Fasting 98 65 - 99 mg/dL [facility] Comment: ?Fasting* Glucose Interpretive Criteria [...] of Diabetes Mellitus, Position Statement from the [place] Diabetes [employer]. ??Diabetes Care, Volume 33, Supplement 1, Mar 2009 BUN 23(H) 8 - 18 mg/dL [facility] Creatinine 1.18 0.70 - 1.20 mg/dL [facility] Sodium 143 135 - 145 mmol/L [facility] Potassium 3.6 3.5 - 5.0 mmol/L [facility] Comment: Please note: ??Patients with WBC >100,000 may have falsely elevated Potassium levels. ??For accurate Potassium quantification in these patients send serum separator tube (gold top) for subsequent determinations. ??Contact the Clinical Chemistry Laboratory if there are any questions. Chloride 107 98 - 107 mmol/L [facility] CO2 24 22 - 31 mmol/L [facility] Anion Gap 12 5 - 15 mmol/L [facility] Calcium 9.2 8.5 - 10.5 mg/dL [facility] Estimated GFR 55(L) >=60 mL/min/1. 73 m?? [facility] Comment: This patient's estimated GFR [...] In Lab Ailyn Knight MD CHEMISTRY ORDERABLES [facility] [place] [address] * Magnesium (04/18/2023 2:10 AM EST) Magnesium 1.02 0.69 - 1.07 mmol/L [facility] Blood 04/18/2023 2:10 AM EST 04/18/2023 2:44 AM EST Narrative Resulting Agency Comment Spec In Lab Ailyn Knight MD CHEMISTRY ORDERABLES Performing Organization Address City/[facility] Co de Phone Number [facility] [place] [address] * LDL Cholesterol, Direct (04/18/2023 2:10 AM EST) LDL Chol Direct 105 mg/dL [facility] Comment: Lowest Risk: <100 mg/dL Lower Risk: 100-129 mg/dL Borderline High Risk: 130-159 mg/dL High Risk: 160-189 mg/dL Very High Risk: >og=563 mg/dL Blood 04/18/2023 2:10 AM EST 04/18/2023 2:44 AM EST Narrative Resulting Agency Comment Spec In Lab Terrence Maloney MD CHEMISTRY ORDERABLES Performing Organization Address City/[facility] Co de Phone Number [facility] [place] [address] * Hemoglobin A1c (04/18/2023 2:10 AM EST) Pathologist [facility] Hemoglobin A1C 5.6 4.3 - 5.6 % [facility] Comment: Reference Range: 4.3 - [...] Mellitus, Diabetes Care 2013; 36: Suppl. 1, S67-97 Est Avg Gluc 115 mg/dL [facility] Blood 04/18/2023 2:10 AM EST 04/18/2023 2:44 AM EST Narrative Resulting Agency Comment Spec In Lab Terrence Maloney MD CHEMISTRY ORDERABLES [facility] [place] [address] * Lipid Panel (Reflex Direct LDL) (04/18/2023 2:10 AM EST) Chol, Total 173 mg/dL [facility] Comment: Lower Risk: <200 mg/dL Average Risk: 200-239 mg/dL Higher Risk: >ce=429 mg/dL Triglycerides 174 mg/dL [facility] Comment: Average Risk/Lower Risk: <150 mg/dL Borderline High Risk: 150-199 mg/dL High Risk: 200-499 mg/dL Very High Risk: >un=356 mg/dL HDL 44 mg/dL [facility] Comment: Males: ?? Higher Risk: <40 mg/dL Females: ?? Higher Risk: <50 mg/dL LDL Cholesterol 94 mg/dL [facility] Comment: Lowest Risk: <100 mg/dL Lower Risk: 100-129 mg/dL Borderline High Risk: 130-159 mg/dL High Risk: 160-189 mg/dL Very High Risk: >dc=169 mg/dL Chol/HDL Ratio 3.9 ratio [facility] Lipid Interpretation See Note [facility] Comment: Lipid management should be guided by a patient? s ASCVD risk, goals and preferences. ACC/AHA Guidelines recommend high intensity statin if clinical ASCVD or LDL greater than or equal to 190 mg/dL. http://Accel Diagnosticsurl.com/JEN-RDJ-Xgsllndyd Adults aged 40-75 with LDL 70-189 mg/dL should have their 10 year ASCVD risk estimated with the ACC/AHA ASCVD risk supervisor estimator and drafter http://tools.acc.org/PYRQD-Xgbv-Tgazchqid/ Statin should be discussed if risk greater [...] Maloney MD CHEMISTRY ORDERABLES Performing Organization Address [facility] Co de Phone Number [facility] [place] [address] * POCT Glucose (04/17/2023 7:44 PM EST) POC Glucose 128 65 - 199 mg/dL [facility] Comment: Supplemental ranges: <140 mg/dL before meals <180 mg/dL all other times of the day Blood 04/17/2023 7:44 PM EST 04/17/2023 7:44 PM EST Ailyn Knight MD POINT OF CARE TEST O RDERABLES Performing Organization Address [facility] Co de Phone Number [facility] [place] [address] * (ABNORMAL) Heparin (unfractionated) Level (04/17/2023 6:01 PM EST) Heparin UFH Level 1.14(Crit ical) IU/mL [facility] Comment: Critical Result called by [...] MD HEMATOLOGY ORDERABLE S Performing Organization Address City/[facility]/ZIP Co de Phone Number [facility] [place] [address] * (ABNORMAL) Heparin (unfractionated) Level (04/17/2023 12:45 PM EST) Heparin UFH Level 1.39(Crit ical) IU/mL [facility] Comment: Critical Result called by [...] MD HEMATOLOGY ORDERABLE S Performing Organization Address [facility]/ZIP Co de Phone Number [facility] [place] [address] * ECHO LMTD W CONTRAST W LMTD SPEC DOPP COLOR DOPP (04/17/2023 11:59 AM EST) EF 58 HEARTLAB SYSTEM Anatomical Region Laterality Modality Cardiac Other 04/17/2023 10:2 4 AM EST Narrative 04/17/2023 12:09 PM EST 1 [place] [address] ? Echocardiogram Report Name: LOIDA MADRIGAL ? Study Date: 04/17/2023 10:24 AMBP: 114/64 mmHg ? Patient Location: 4A : 1970 ? Height: 160 cm ? Account: [id number] Age: 53 yrs ? Weight: 98 kg Gender: Female ?BSA: 2.0 m2 Ordering Physician: TERRENCE MALONEY Referring Physician: TERRENCE MALONEY Performed By: HAIM Becerra Reason For Study: Chest pain; NSTEMI Exam Location: [facility]. Interpretation Summary Left ventricle is [...] wall motion has increased. Procedure Limited - 14613. Image enhancement Optison was used for left [...] Note Jaspreet Kinsey MD - 04/17/2023 1 [place] [address] Echocardiogram Report Name: NEISHA LOIDA Study Date: 0:24 AMBP: 114/64 mmHg Patient Location: : 1970 Height: 160 cm Account: [id number] Age: 53 yrs Weight: 98 kg Gender: Female BSA: 2.0 m2 Ordering Physician: TERRENCE MALONEY Referring Physician: TERRENCE MALONEY Performed By: HAIM Becerra Reason For Study: Chest pain; NSTEMI Exam Location: [facility]. Interpretation Summary Left ventricle is normal in size and wall thickness. Normal globalsystolic function with regional wall motion abnormalities as ascribed on the anterior/anterolateral aspect. Right ventricle is normal in size and systolic function. No significant cardiac valve findings. No pericardial effusion. Compared to prior study dated 02/09/2023, the extent of the anteriorabnormal wall motion has increased. Procedure Limited - [id number]. Image enhancement Optison was used for left ventricular opacification. Suboptimal quality. This study is limited because of bodyhabitus. There is sinus bradycardia. Left Ventricle Left ventricle is of normal size. Wall thickness is normal. There is no ventricular septal defect. Left ventricular systolic function is normal.The left ventricular ejection fraction is 58% by Reyse's biplane. There aresegmental wall motion abnormalities. Right [...] EST) Heparin UFH Level 1.41(Crit ical) IU/mL [facility] Comment: Critical Result called by [...] MD HEMATOLOGY ORDERABLE S Performing Organization Address City/[facility]/ZIP Co de Phone Number [facility] [place] [address] * (ABNORMAL) Troponin (04/17/2023 6:43 AM EST) Troponin-T HS 23(H) <=14 ng/L [facility] Comment: [...] troponin value can be found in the [facility] Test Catalog Troponin - [facility] Test Catalog Reference: Fourth [place] Definition of Myocardial Infarction. Journal of the [place] College [employer] 2018;72:1255-1002 Blood 04/17/2023 6:43 AM EST 04/17/2023 6:52 AM EST Narrative Resulting Agency Comment Spec In Lab Terrence Maloney MD CHEMISTRY ORDERABLES Performing Organization Address City/[facility]/ZIP Co de Phone Number [facility] [place] [address] * EKG 12 Lead (04/17/2023 3:41 AM EST) Ventricular rate 47 BPM MUSE SYSTEM Atrial Rate 47 BPM MUSE SYSTEM P-R Interval 186 ms MUSE SYSTEM QRS Duration 90 ms MUSE SYSTEM Q-T Interval 578 ms MUSE SYSTEM QTC Calculated (Bezet) 511 ms MUSE SYSTEM Calculated P Watts 24 degrees MUSE SYSTEM Calculated R Watts 23 degrees MUSE SYSTEM Calculated T Watts 27 degrees MUSE SYSTEM INTERPRETATION Sinus bradycardia with Premature atrial complexes Possible Left atrial enlargement Possible Lateral infarct , age undetermined Prolonged QT Abnormal ECG When compared with ECG of 01-APR-2023 12:28, Premature atrial complexes are now Present Vent. rate has decreased BY ??33 BPM Nonspecific T wave abnormality, improved in Anterior leads Confirmed by MD Angelo Danette ([id number]) on 04/20/2023 8:28:40 PM MUSE SYSTEM 04/17/2023 3:41 AM EST 04/20/2023 8:28 PM EST Terrence Maloney MD ECG ORDERABLES MUSE SYSTEM * Differential, Automated (04/17/2023 3:33 AM EST) Neutrophils % 54.4 % [facility] Neutr Abs (ANC) 4.02 1.70 - 6.10 x10(3)/[facility] LAB[facility] Lymphocytes % 32.0 % [facility] Lymphocytes Abs 2.4 0.9 - 3.2 x10(3)/[facility] LABORATORY Monocytes % 8.7 % [facility] Monocyte Abs 0.6 0.3 - 0.9 x10(3)/[facility] LABORATORY Eosinophils % 3.9 % [facility] Eosinophils Abs 0.3 0.0 - 0.4 x10(3)/[facility] LAB[facility]ATORY Basophils % 0.7 % [facility] Basophils Abs 0.0 0.0 - 0.1 x10(3)/[facility] LABORATORY Immature Gran % 0.30 % [facility] Comment: Immature granulocytes(IG's)percentage and absolute count will include metamyelocytes, myelocytes, and promyelocytes. Blood smears from CBCs yielding IG's will be scanned manually for concordance. If this scan disagrees with the automated IG or if promyelocytes are noted, a manual differential will be performed. Shonda Gran Abs 0.02 0.00 - 0.04 x10(3)/[facility] Blood 04/17/2023 3:33 AM EST 04/17/2023 3:42 AM EST Narrative Resulting Agency Comment Spec In Lab Terrence Maloney MD HEMATOLOGY ORDERABLE S [facility] [place] [address] * Hemogram (04/17/2023 3:33 AM EST) WBC 7.4 4.0 - 9.5 x10(3)/[facility] LAB[facility]ATORY RBC 4.79 4.00 - 5.21 x10(6)/[facility] Hemoglobin 14.8 11.7 - 15.5 g/dL [facility] Hematocrit 44.3 35.7 - 45.8 % [facility] MCV 92.5 82.6 - 94.4 fL [facility] MCH 30.9 27.1 - 32.0 pg [facility] MCHC 33.4 31.7 - 35.0 g/dL [facility] Platelets 233 145 - 357 x10(3)/[facility] LAB[facility]ATORY RDWSD 43.4 37.0 - 46.0 fL [facility] RDWCV 12.7 11.5 - 14.1 % [facility] MPV 11.0 7.6 - 12.9 fL [facility] nRBC % Auto 0.0 % [facility] nRBC Abs Auto 0.000 0.000 - 0.000 x10(3)/[facility] Blood 04/17/2023 3:33 AM EST 04/17/2023 3:42 AM EST Narrative Resulting Agency Comment Spec In Lab Terrence Maloney MD HEMATOLOGY ORDERABLE S Performing Organization Address [facility] Co de Phone Number [facility] [place] [address] * Sedimentation rate (04/17/2023 3:33 AM EST) Sed Rate 12 2 - 39 mm/hr [facility] Comment: Effective February 15, 2019 new capillary photometric technology has resulted in a change in reference ranges. It is recommended that each ESR result be reviewed with its own age appropriate reference range. Blood 04/17/2023 3:33 AM EST 04/17/2023 3:42 AM EST Narrative Resulting Agency Comment Spec In Lab Terrence Maloney MD HEMATOLOGY ORDERABLE S Performing Organization Address [facility] Co de Phone Number [facility] [place] [address] * CRP, acute inflammation (04/17/2023 3:33 AM EST) Pathologist [facility] CRP <3.0 <=4.9 mg/L [facility] Blood 04/17/2023 3:33 AM EST 04/17/2023 3:42 AM EST Narrative Resulting Agency Comment Spec In Lab Terrence Maloney MD CHEMISTRY ORDERABLES Performing Organization Address [facility] Co de Phone Number [facility] [place] [address] * (ABNORMAL) Troponin (04/17/2023 3:33 AM EST) Troponin-T HS 24(H) <=14 ng/L [facility] Comment: [...] troponin value can be found in the [facility] Test Catalog Troponin - [facility] Test Catalog Reference: Fourth [place] Definition of Myocardial Infarction. Journal of the [place] College [employer]iology 2018;72:8121-1073 Blood 04/17/2023 3:33 AM EST 04/17/2023 3:42 AM EST Narrative Resulting Agency Comment Spec In Lab Terrence Maloney MD CHEMISTRY ORDERABLES Performing Organization Address [facility] Co de Phone Number [facility] [place] [address] * (ABNORMAL) APTT (04/17/2023 3:33 AM EST) PTT 40(H) 25 - 37 sec [facility] Comment: The PTT is NOT appropriate for heparin monitoring. Use the Anti-Xa level for heparin monitoring (HEP UFH) or LMWH monitoring (HEP LMW). A PTT less than 37 seconds generally indicates adequate hemostasis. Blood 04/17/2023 3:33 AM EST 04/17/2023 3:42 AM EST Narrative Resulting Agency Comment Spec In Lab Terrence Maloney MD HEMATOLOGY ORDERABLE S Performing Organization Address [facility] Co de Phone Number [facility] [place] [address] * (ABNORMAL) Prothrombin Time (04/17/2023 3:33 AM EST) PT 13.3(H) 9.4 - 12.5 sec [facility] INR 1.2 [facility] Comment: [...] MD HEMATOLOGY ORDERABLE S Performing Organization Address [facility] Co de Phone Number [facility] [place] [address] * Hepatic Function Panel (04/17/2023 3:33 AM EST) Total Protein 6.9 6.1 - 8.0 g/dL [facility] Albumin 4.2 3.2 - 5.2 g/dL [facility] AST Not Perf 0 - 30 [facility] Comment: Unable to quantitate due to sample hemolysis. ??Sample redraw suggested. Called by: Danny Bowles, Read back by: Nyla Cassidy, Date/Time:04/17/23 05:06. ALT 17 0 - 30 unit/L [facility] Alk Phos 59 35 - 105 unit/L [facility] Total Bilirubin 0.4 0.2 - 1.3 mg/dL [facility] Bili, Direct 0.1 0.0 - 0.3 mg/dL [facility] Blood 04/17/2023 3:33 AM EST 04/17/2023 3:42 AM EST Narrative Resulting Agency Comment Spec In Lab Terrence Maloney MD CHEMISTRY ORDERABLES Performing Organization Address [facility] Co de Phone Number [facility] [place] [address] * (ABNORMAL) pro-Brain Natriuretic Peptide (04/17/2023 3:33 AM EST) ProBNP 867(H) <=124 pg/mL [facility] Blood 04/17/2023 3:33 AM EST 04/17/2023 3:42 AM EST Narrative Resulting Agency Comment Spec In Lab Terrence Maloney MD CHEMISTRY ORDERABLES Performing Organization Address City/[facility] Co de Phone Number [facility] [place] [address] * (ABNORMAL) TSH (04/17/2023 3:33 AM EST) TSH 5.93(H) 0.27 - 4.20 mcIU/mL [facility] Comment: Reference Interval (mcIU/mL): Females: ??First Trimester: 0.23-3.88 ??Second Trimester: 0.22-3.90 ??Third Trimester: 0.44-4.66 Blood 04/17/2023 3:33 AM EST 04/17/2023 3:42 AM EST Narrative Resulting Agency Comment Spec In Lab Terrence Maloney MD CHEMISTRY ORDERABLES Performing Organization Address [facility] Co de Phone Number [facility] [place] [address] * Phosphorus (04/17/2023 3:33 AM EST) Phosphorus 4.1 2.5 - 4.5 mg/dL [facility] Blood 04/17/2023 3:33 AM EST 04/17/2023 3:42 AM EST Narrative Resulting Agency Comment Spec In Lab Terrence Maloney MD CHEMISTRY ORDERABLES Performing Organization Address [facility] Co de Phone Number [facility] [place] [address] * Magnesium (04/17/2023 3:33 AM EST) Magnesium 0.99 0.69 - 1.07 mmol/L [facility] Blood 04/17/2023 3:33 AM EST 04/17/2023 3:42 AM EST Narrative Resulting Agency Comment Spec In Lab Terrence Maloney MD CHEMISTRY ORDERABLES [facility] [place] [address] * (ABNORMAL) Basic Metabolic Panel (non-fasting) (04/17/2023 3:33 AM EST) Glucose Lvl 89 65 - 199 mg/dL [facility] Comment:Diabetes: >=200 mg/d L plus symptoms BUN 19(H) 8 - 18 mg/dL [facility] Creatinine 1.19 0.70 - 1.20 mg/dL [facility] Sodium 141 135 - 145 mmol/L [facility] Potassium 4.0 3.5 - 5.0 mmol/L [facility] Comment: Please note: ??Patients with WBC >100,000 may have falsely elevated Potassium levels. ??For accurate Potassium quantification in these patients send serum separator tube (gold top) for subsequent determinations. ??Contact the Clinical Chemistry Laboratory if there are any questions. Chloride 106 98 - 107 mmol/L [facility] CO2 22 22 - 31 mmol/L [facility] Anion Gap 13 5 - 15 mmol/L [facility] Calcium 9.4 8.5 - 10.5 mg/dL [facility] Estimated GFR 54(L) >=60 mL/min/1. 73 m?? [facility] Comment: This patient's estimated GFR [...] In Lab Terrence Maloney MD CHEMISTRY ORDERABLES [facility] [place] [address] * Film Library- Storage Only CT Chest [...] RN) 923 (Given - Provider: China Myers) torsemide (Demadex) [...] documented as of this encounter Care Teams Facing Cutting Machine Operator Relationship Specialty Start Date End Date Polo Pearce PA [address] [place] [address] PCP - General Internal Medicine 06/09/21 documented as of this encounter
--- OUTSIDE RECORDS SUMMARY | 2023-09-20 18:35 | XMS_ITS | Encounter Summary ---
Author Organization [place] [address] Care Team Providers Care Telecom Engineer Name Role Phone Polo Pearce Primary Care Provider [phone] Reason for Visit * Reason Onset Date Comments Follow-up 04/08/2023 Encounter Details Date Type Department Care Team (Late st Contact Info) Description 04/08/2023 Telephone Cardiology at [address] [phone] Mary Motta, RN Follow-up Social History Tobacco Use Types Packs/Day Years Used Date Smoking Tobacco: Never Smokeless Tobacco: Never Alcohol Use Standard Drinks/Week Comments Never 0 (1 standard drink = 0.6 oz pur e alcohol) [facility] Utilities Answer Date Recorded In the past 12 months has e [employer], gas, oil, or water [employer] threatened to shut off services in your [...] AM EDT Tech Visit Vascular Lab at [place] [phone] Jose Cook 10/08/2023 9:30 AM EDT Office [place] [phone] MD [facility] [place] [address] 10/21/2023 10:30 AM EDT Appointment [place] [phone] Mary Reyes [facility] [place] [address] 10/21/2023 11:30 AM EDT Appointment Nuclear Medicine at [place] [phone] Mary Reyes [facility] [place] [address] 10/21/2023 12:30 PM EDT Appointment Nuclear Medicine at [place] [phone] Mary Reyes [facility] [place] [address] 10/21/2023 1:30 PM EDT Appointment [place] [phone] Mary Reyes [facility] [place] [address] 10/21/2023 2:30 PM EDT Appointment Nuclear Medicine at [address] Mary Reyes APRN [facility] [place] [address] 10/26/2023 4:00 PM EDT Office Visit Cardiology at [address] [phone] Jaspreet Kinsey MD [facility] [place] [address] 10/28/2023 9:00 AM EDT Office [place] [address] 10/29/2023 10:00 AM EDT Clinical [place] [address] 10/29/2023 10:15 AM EDT Procedure [place] [address] 11/01/2023 5:00 PM EDT Office Visit Gastroenterology at [address] Selene Browning, PhD [facility] [place] [address] 11/22/2023 4:40 PM EDT Office Visit Cardiology at [place] [phone] Porsha Mcdaniels MD [facility] [place] [address] 12/13/2023 10:00 AM EDT Clinical [place] [phone] [facility] [place] [address] documented as of this encounter Visit Diagnoses Not on filedocumented in this encounter Care Teams Telecom Engineer Relationship Specialty Start Date End Date Polo Pearce PA [address] [place] [address] PCP - General Internal Medicine 06/09/21 documented as of this encounter
--- OUTSIDE RECORDS SUMMARY | 2023-09-20 18:35 | XMS_ITS | Encounter Summary ---
[place] [address] Care Team Providers Care Full Roll Inspector Name Role Phone Polo Pearce Primary Care Provider [phone] Encounter Details Date Type Department Care Team (Late st Contact Info) Description 04/16/2023 External [place] [phone] Social History Tobacco Use Types Packs/Day Years Used Date Smoking Tobacco: Never Smokeless Tobacco: Never Alcohol Use Standard Drinks/Week Comments Never 0 (1 standard drink = 0.6 oz pur e alcohol) [facility] Utilities Answer Date Recorded In the [...] in a residential (including now)? No 04/19/2023 IPV Inpatient Questions [...] AM EDT Tech Visit Vascular Lab at [place] [phone] Jose Cook 10/08/2023 9:30 AM EDT Office Visit Vascular Surgery at [place] [phone] MD [facility] [place] [address] 10/21/2023 10:30 AM EDT Appointment Nuclear Medicine at [place] [phone] Mary Reyes APRN [facility] [place] [address] 10/21/2023 11:30 AM EDT Appointment [place] [phone] Mary Reyes APRN [facility] [place] [address] 10/21/2023 12:30 PM EDT Appointment [place] [address] Mary Reyes, [facility] [place] [address] 10/21/2023 1:30 PM EDT Appointment [place] [phone] Mary Reyes [facility] [place] [address] 10/21/2023 2:30 PM EDT Appointment [place] [address] Mary Reyes, [facility] [place] [address] 10/26/2023 4:00 PM EDT Office Visit Cardiology at [address] [phone] Jaspreet Kinsey MD [facility] [place] [address] 10/28/2023 9:00 AM EDT Office [place] [address] 10/29/2023 10:00 AM EDT Clinical [place] [address] 10/29/2023 10:15 AM EDT Procedure [place] [address] 11/01/2023 5:00 PM EDT Office Visit [place] [phone] Selene Browning, PhD [facility] [place] [address] 11/22/2023 4:40 PM EDT Office Visit Cardiology at [place] [phone] Porsha Mcdaniels MD [facility] [place] [address] 12/13/2023 10:00 AM EDT Clinical Support [place] [phone] Lucero Romero, [facility] [place] [address] documented as of this encounter Procedures Procedure Name Priority Date/Time Associated Diagnosis Comments ECG SCAN Routine 04/16/2023 6:11 PM EST documented in this encounter Results * Scan Doc: ECG (04/16/2023 6:11 PM EST) Historical Provider MD FLEMING MGR SCAN EX T ORDR/RSLT documented in this encounter Visit Diagnoses Not on filedocumented in this encounter Care Teams Full Roll Inspector Relationship Specialty Start Date End Date Polo Pearce PA [address] [place] [address] PCP - General Internal Medicine 06/09/21 documented as of this encounter
--- OUTSIDE RECORDS SUMMARY | 2023-09-20 18:35 | XMS_ITS | Encounter Summary ---
Author Organization Formerly [facility] [address] Care Team Providers Care Medicare Interviewer Name Role Phone Polo Pearce Primary Care Provider [phone] Encounter Details Date Type Department Care Team (Late st Contact Info) Description 04/02/2023 Telephone Cardiology at [address] [phone] Ambreen Cartagena Social History Tobacco Use Types Packs/Day Years Used Date Smoking Tobacco: Never Smokeless Tobacco: Never Alcohol Use Standard Drinks/Week Comments Never 0 (1 standard drink = 0.6 oz pur e alcohol) [facility] Utilities Answer Date Recorded In [...] see this patient in follow up at [facility] in 2-3 months. She had SVT ablation 04/01/23. Message sent Mary at [facility] to get pt scheduled there for f/up. Ambreen Cartagena Sr. Clinical Procedure [place] documented in this encounter Plan of Treatment Upcoming Encounters Date Type Department Care Team (Late st Contact Info) Description 10/08/2023 8:30 AM EDT Tech Visit [place] [phone] Jose Cook 10/08/2023 9:30 AM EDT Office Visit [place] [phone] MD [facility] [place] [address] 10/21/2023 10:30 AM EDT Appointment [place] [phone] Mary Reyes APRN [facility] [place] [address] 10/21/2023 11:30 AM EDT Appointment [place] [address] Mary Reyes, [facility] [place] [address] 10/21/2023 12:30 PM EDT Appointment [place] [address] Mary Reyes, [facility] [place] [address] 10/21/2023 1:30 PM EDT Appointment [place] [address] Mary Reyes, [facility] [place] [address] 10/21/2023 2:30 PM EDT Appointment [place] [address] Mary Reyes, [facility] [place] [address] 10/26/2023 4:00 PM EDT Office Visit Cardiology at [address] [phone] Jaspreet Kinsey MD [facility] [place] [address] 10/28/2023 9:00 AM EDT Office [place] [address] 10/29/2023 10:00 AM EDT Clinical [place] [address] 10/29/2023 10:15 AM EDT Procedure [place] [address] 11/01/2023 5:00 PM EDT Office [place] [address] Selene Browning, PhD [facility] [place] [address] 11/22/2023 4:40 PM EDT Office [place] [address] Porsha Mcdaniels MD [facility] [place] [address] 12/13/2023 10:00 AM EDT Clinical Support Gastroenterology at [place] [phone] Lucero Romero, [facility] [place] [address] documented as of this encounter Visit Diagnoses Not on filedocumented in this encounter Care Teams Medicare Interviewer Relationship Specialty Start Date End Date Polo Pearce PA Sb [address] [place] [address] PCP - General Internal Medicine 06/09/21 documented as of this encounter
--- OUTSIDE RECORDS SUMMARY | 2023-09-20 18:35 | XMS_ITS | Encounter Summary ---
Author Organization [facility] [place] [address] Care Team Providers Care Barrel Washer Machine Name Role Phone Polo Pearce Primary Care Provider [phone] Encounter Details Date Type Department Care Team (Late st Contact Info) Description 04/16/2023 Telephone Cardiology at [address] [phone] Vaishnavi Pratt MD [facility] [place] [address] Social History Tobacco Use Types Packs/Day Years Used Date Smoking Tobacco: Never Smokeless Tobacco: Never Alcohol Use Standard Drinks/Week Comments Never 0 (1 standard drink = 0.6 oz pur e alcohol) [facility] Utilities Answer Date Recorded In the past 12 months has [employer], gas, oil, or water [employer] threatened to shut off services in your [...] slept in a halfway (including now)? No 02/10/2023 IPV Inpatient Questions [...] Date: 04/16/23 Referring Provider: Jaylon Patient Location: [facility] HPI: 53 y.o. 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 Preceding this, she has documented sustained narrow complex tachycardia on 06/13/2021 in the context of hospitalization [facility]. 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 So she was transferred to [facility] for EPS and ablation. She now presents to [facility] with chest discomfortthat started overnight. Upon chart review of Rn notes, patient reports that prior to the procedure she was having chest pain, worse with laying flat. She continued to have feelings of warmth and diaphoresis which improvedmildly immediately after procedure but resumed a few days after. Patient also had an admission to [facility] for chest pain on 02/11/23 and it [...] that was done by the on-call overnight woodwind instrument repairer, there is no significant change in biventricular [...] and Asa load. Will accept patient to [facility] for further workup. Although history sounds suspicious for pericarditis, recent ESR/CRP were normal. Suspect at [facility] patient will need to complete ischemic workup. Recommendations: Heparin gtt, Asa load, High intensity statin Transfer to [facility] Above recommendations were based on my discussion with OSH; I have not personally interviewed or examined this patient. Advised to call the transfer center back with any changes in the patient condition. Vaishnavi Pratt MD Mold Sprayer documented in this encounter Plan of Treatment Upcoming Encounters Date Type Department Care Team (Late st Contact Info) Description 10/08/2023 8:30 AM EDT Tech Visit Vascular Lab at [place] [phone] Jose Cook 10/08/2023 9:30 AM EDT Office [place] [phone] MD [facility] [place] [address] 10/21/2023 10:30 AM EDT Appointment [place] [address] Mary Reyes [facility] [place] [address] 10/21/2023 11:30 AM EDT Appointment [place] [address] Mary Reyes [facility] [place] [address] 10/21/2023 12:30 PM EDT Appointment [place] [phone] Mary Reyes, GAS BOOSTER ENGINEER [facility] [place] [address] 10/21/2023 1:30 PM EDT Appointment [place] [address] Mary Reyes [facility] [place] [address] 10/21/2023 2:30 PM EDT Appointment [place] [address] Mary Reyes, [facility] [place] [address] 10/26/2023 4:00 PM EDT Office Visit Cardiology at [address] [phone] Jaspreet Kinsey MD [facility] [place] [address] 10/28/2023 9:00 AM EDT Office [place] [address] 10/29/2023 10:00 AM EDT Clinical [place] [address] 10/29/2023 10:15 AM EDT Procedure [place] [address] 11/01/2023 5:00 PM EDT Office [place] [phone] Selene Browning, PhD [facility] [place] [address] 11/22/2023 4:40 PM EDT Office Visit Cardiology at [address] [phone] Porsha Mcdaniels MD [facility] [place] [address] 12/13/2023 10:00 AM EDT Clinical [place] [address] [facility] [place] [address] documented as of this encounter Visit Diagnoses Not on filedocumented in this encounter Care Teams Barrel Washer Machine Relationship Specialty Start Date End Date Polo Pearce PA [address] [place] [address] PCP - General Internal Medicine 06/09/21 documented as of this encounter
--- OUTSIDE RECORDS SUMMARY | 2023-09-20 18:35 | XMS_ITS | Encounter Summary ---
[place] [address] Care Team Providers Care Brazing Furnace Operator Name Role Phone Polo Pearce Primary Care Provider [phone] Reason for Referral * Diagnostic Test (Routine) - Closed Specialty Diagnoses / Procedures Referred By Jayant harris Referred To Contact Radiology Diagnoses Chest pain, unspecified type Procedures NM PET CT Cardiac Sarcoid Maegan Mike APRN [facility] [place] [address] [place] [address] Referral ID Status Reason Start Date Expiration Date V isits Requested Visits Authorized [id number] Closed Specialty Service Requested 04/22/2023 10/20/2024 4 4 Reason for Visit * Auth/Cert (Routine) Specialty Diagnoses / Procedures Referred By Jayant harris Referred To Contact Diagnoses NSTEMI (non-ST elevated myocardial infarction) NSTEMI Procedures ER Terrence Pantoja MD [facility] [place] [address] [facility] Referral ID Status Reason Start Date Expiration Date Visits Re quested Visits Authorized [id number] 1 1 Encounter Details Date Type Department Care Team (Latest Contact Info) Description 04/16/2023 11:15 PM EST - 04/22/2023 5:15 PM EST Hospital Encounter Heart and Vascular Unit Level 4 Wing B at [facility] [place] [address] Jose Gallegos MD [facility] [place] [address] Ailyn Knight MD [facility] [place] [address] Terrence Maloney MD [facility] [place] [address] Eufemia Copeland MD [facility] [place] [address] Chest pain, unspecified type; Non-ST elevation myocardial infarction (NSTEMI); Swelling of hand, unspecified laterality; Arm edema Discharge Disposition: Home Social History Tobacco Use Types Packs/Day Years Used Date Smoking Tobacco: Never Smokeless Tobacco: Never Alcohol Use Standard Drinks/Week Comments Never 0 (1 standard drink = 0.6 oz pur e alcohol) [facility] Utilities Answer Date Recorded In the past 12 months has [facility] [employer], gas, oil, or water [place] threatened to shut off services in your [...] Loida Madrigal Patient Age: 53 y.o. Language: Macedonian Admit date: 04/16/2023 Discharge date and time: [...] lung disease secondary to obesity transferred from [facility] for further evaluation of exertional chest pressure and breathlessness. Abnormal OSH troponin 500 and repeat HS Trop at [facility] peak 27 with flat trend and elevated [...] discharge Inpatient Provider Contact Information: Cardiovascular Medicine [phone] Discharge Diagnoses (Hospital Problems) and Secondary Diagnoses [...] motion has increased. CTA PE protocol at [facility]- no PE but showed small pericardial effusion and some GG opacities. History of Presentation: Loida Madrigal is a 53 y.o. with hx of paroxysmal A-fib (diagnosed on 10/20/2022), pulmonary emboli on Eliquis, HFpEF (EF of 59%), supraventricular tachycardia (AVNRT since 06/2021) s/p EPS and SVTablation on 04/01/[address] Tovar on [facility], restrictive lung disease secondary to obesity presents from [facility] with complains of chest discomfort that started overnight. The patient has been experiencing ongoing chest pain, prompting admission on 02/11/23 primarily due to concerns about a NSTEMI indicated by elevated troponin levels and EKG changes noted at OSH. However, the observed EKG changes remained largely consistent with previous recordings. Troponin levels at [facility] showed a plateau at 23 > 27. [...] again 10/15, improving with sublingua Nitro. At [facility] Vitals: HR 48, BP 115/42, O2 96% [...] #Acute on chronic HFpEF Patient presented to [facility] on 04/16 with chest pain responsive to SL NTG. Troponin ~500x2. Transferredto [facility] for further evaluation. Troponin at [facility], 24>23 w/ repeat peak 27->26. She reported [...] PA 38/15 (24) PCWP 11, CO/CI 3.14/1.6. [facility] 08/30/2019-normal coronary arteries. Cardiac MRI 04/21/23 Normal [...] days. Refills: 0 fluticasone propionate 50 mcg/actuation Farwell, Suspension Commonly known as: Flonase 1 spray [...] 9:40 AM Jaspreet Kinsey MD Cardiology at [place] Arrive at: [facility] [address] [phone] 09/21/2023 3:00 PM Jaspreet Kinsey MD Cardiology at [place] Arrive at: [facility] [address] [phone] Discharge References/Attachments None Greater than 30 minutes was spent on this discharge including documentation, [id number] time withthe patient, patient education, sales order administrator, coordination with pharmacy and other patient care. [...] away. Stay on the phone. The emergency resaw carriage operator will tell you what to do. [...] of 8AM-5PM please call the Cardiology Clinic [phone] to speak with a nurse. All other hours please call the Hospital Chocolate Dipper [phone] and ask to speak to the packaging supervisor on-call. Return to work: One week Follow up Appointments: Doctor Where Phone # Date Time PCP JOCY Franco [address] [place] [address] 04/28/2023 7:30 AM Ac/Dc Rewinder Dr. Kinsey [facility] [address] 05/10/2023 9:40 AM * Attachments The following attachments cannot be sent through Care Everywhere. * Coronary Angiogram: Post-op (Macedonian) documented in this encounter Medications at Time [...] nightly as needed. empagliflozin (Jardiance) 10 mg TabletIndications:Healthcare Science Specialist neal heart failure with preserved ejection fraction Take 1 tablet by mouth daily. 90 tablet 1 06/11/2021 rOPINIRole (Requip) 1 mg Tablet Take 2 mg by mouth 2 times daily. 07/16/2020 loratadine (Claritin) 10 mg Tablet Take 10 mg by mouth daily as needed. fluticasone propionate (FLONASE) 50 mcg/actuation Farwell, Suspension 1 spray by Each Nare route [...] reviewed with pt, pt wheeled to d/c [facility]. I agree with the information in this [...] note were not included. CARDIOLOGY APP1 - [facility] DAILY PROGRESS NOTE Page [phone] to reach a provider 28/09 Admit Date: [...] 12 CRP <=4.9 mg/L <3.0 <3.0 OSH [facility] troponin ~500. Telemetry: I have personally reviewed [...] disease secondary to obesity who presented to [facility] on 04/16 with chest pain responsive to SL NTG. Troponin ~500x2. Transferred to [facility] for further evaluation. Troponin at [facility], 24>23. Reports exertional chest pressure and dyspnea [...] Score: 24 PT: OT: PCP JOCY Franco [phone] Discussed with MD Kurt Ray PA-C APP1 pager [phone] 04/22/2023 CV HOSPITALIST ADDENDUM Date of Service: [...] 04/21/2023 6:10 PM EST CARDIOLOGY APP1 - [facility] DAILY PROGRESS NOTE Page [phone] to reach a provider 28/09 Admit Date: [...] 12 CRP <=4.9 mg/L <3.0 <3.0 OSH [facility] troponin ~500. Telemetry: I have personally reviewed [...] disease secondary to obesity who presented to [facility] on 04/16 with chest pain responsive to SL NTG. Troponin ~500x2. Transferred to [facility] for further evaluation. Troponin at [facility], 24>23. Reports exertional chest pressure and dyspnea [...] and no pericardial effusion. She underw ent [facility] on 04/18 which showed non-obstructive [...] TTE with pLVEF, progressing anterior WMAs S/p [facility] 04/18 with non-obstructive ASCVD IV heparin and [...] occur Diet: Daily Healthy Menu Choices/Cardiac diet ([facility]-Diet) 2 GM NA DVT Prophylaxis: DOAC Code status: Attempt Cardiopulmonary Resuscitation - Inpatient Disposition: Discharge Location: AM-[facility] Basic Mobility Raw Score: 22 PT: OT: PCP JOCY Franco [phone] * Eufemia Copeland MD - 04/20/2023 4:34 PM EST CARDIOLOGY APP1 - [facility] DAILY PROGRESS NOTE Page [phone] to reach a provider 28/09 Admit Date: [...] 12 CRP <=4.9 mg/L <3.0 <3.0 OSH [facility] troponin ~500. Telemetry: I have personally reviewed [...] disease secondary to obesity who presented to [facility] on 04/16 with chest pain responsive to SL NTG. Troponin ~500x2. Transferred to [facility] for further evaluation. Troponin at [facility], 24>23. Reports exertional chest pressure and dyspnea [...] and no pericardial effusion. She underw ent [facility] on 04/18 which showed non-obstructive [...] occur Diet: Daily Healthy Menu Choices/Cardiac diet ([facility]-Diet) 2 GM NA; 2000 mL FLUID DVT Prophylaxis: DOAC Code status: Attempt Cardiopulmonary Resuscitation - Inpatient Disposition: Discharge Location: AM-[facility] Basic Mobility Raw Score: 24 PT: OT: PCP JOCY Franco [phone] * Carrol La PA - 04/19/2023 12:32 PM EST CARDIOLOGY APP1 - [facility] DAILY PROGRESS NOTE Page [phone] to reach a provider 28/09 Admit Date: [...] 12 CRP <=4.9 mg/L <3.0 <3.0 OSH [facility] troponin ~500. EKG: Sinus bradycardia, 47 bpm, PAC, possible left atrial enlargement, possible lateral infarct, QTc 511. Telemetry: I have personally reviewed and interpreted the telemetry from the last 24 hours. Resultsshow sinus bradycardia with HR 50s, PVCs, heart rate climbs to 70s with activity.. Imaging: [facility] 04/18/23 Conclusions: * Nonobstructive coronary [...] motion has increased. CTA PE protocol at [facility]- no PE but showed small pericardial effusion [...] acute aortopathy. 4. No acute pulmonary findings. [facility] 06/09/2021-RA 4, PA 38/15 (24) PCWP 11, CO/CI 3.14/1.6. [facility] 08/30/2019-normal coronary arteries. Assessment & [...] disease secondary to obesity who presented to [facility] on 04/16 with chest pain responsive to SL NTG. Troponin ~500x2. Transferred to [facility] for further evaluation. Troponin at [facility], 24>23. Reports exertional chest pressure and dyspnea [...] TTE with pLVEF, progressing anterior WMAs S/p [facility] 04/18 with non-obstructive ASCVD IV heparin and [...] continues. Diet: Daily Healthy Menu Choices/Cardiac diet ([facility]-Diet) 2 GM NA; 2000 mL FLUID DVT Prophylaxis: DOAC Code status: Attempt Cardiopulmonary Resuscitation - Inpatient Disposition: Discharge Location: AM-PAC Basic Mobility Raw Score: 24 PT: OT: PCP JOCY Franco [phone] Discussed with MD Carrol Aly PA-C APP1 Pager: [phone] 04/19/2023 * Nikkie Lew RCP - 04/18/2023 [...] note were not included. CARDIOLOGY APP1 - [facility] DAILY PROGRESS NOTE Page [phone] to reach a provider 28/09 Admit Date: [...] breathlessness. Awaiting cardiac catheterization potentially today if Technical Support Technician availability allows.She remains on ACS therapies. Medications: [...] motion has increased. CTA PE protocol at [facility]- no PE but showed small pericardial effusion [...] lung disease secondary to obesity presents from [facility] with complains of exertional chest pressure [...] or NTG drip if ongoing chest pain -[facility] 04/18 depending on Technical Support Technician availability. #Hx of pAfib #Hx of AVNRT [...] Cardiopulmonary Resuscitation - Inpatient Disposition: Discharge Location: AM-[facility] Basic Mobility Raw Score: 24 PT: OT: PCP JOCY Franco [phone] Discussed with MD Kurt Sheppard PA-C APP1 pager [phone] 04/18/2023 IE * Kurt Silveira PA - 04/17/2023 7:15 AM EST Images from the original note were not included. CARDIOLOGY APP1 - [facility] DAILY PROGRESS NOTE Page [phone] to reach a provider 28/09 Admit Date: [...] 12 CRP <=4.9 mg/L <3.0 <3.0 OSH [facility] troponin ~500. EKG: Sinus bradycardia, 47 bpm, [...] motion has increased. CTA PE protocol at [facility]- no PE but showed small pericardial effusion [...] PA 38/15 (24) PCWP 11, CO/CI 3.14/1.6. [facility] 08/30/2019-normal coronary arteries. Assessment & [...] lung disease secondary to obesity presents from [facility] with complains of exertional chest pressure [...] or NTG drip if ongoing chest pain -[facility] 04/18 or 04/19 depending on Technical Support Technician availability. #Hx of pAfib #Hx of AVNRT sp EPS and Ablation - hold eliquis. Last taken on 04/16/23 am. - Continue IV heparin. # Hx of PE- continue with IV heparin Diet: No diet orders on file DVT Prophylaxis: DOAC Code status: Attempt Cardiopulmonary Resuscitation - Inpatient Disposition: Discharge Location: AM-[facility] Basic Mobility Raw Score: 14 PT: OT: PCP JOCY Franco [phone] Discussed with MD uKrt Sheppard PA-C APP1 pager [phone] 04/17/2023 documented in this encounter H&P Notes [...] SVTablation on 04/01/[address] Tovar on [facility], restrictive lung disease secondary to obesity presents from [facility] with complains of chest discomfort that started overnight. The patient has been experiencing ongoing chest pain, prompting admission on 02/11/23 primarily due to concerns about a NSTEMI indicated by elevated troponin levels and EKG changes noted at OSH. However, the observed EKG changes remained largely consistent with previous recordings. Troponin levels at [facility] showed a plateau at 23 > 27. [...] again 10/15, improving with sublingua Nitro. 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 fluticasone propionate (FLONASE) 50 mcg/actuation Farwell, Suspension 1 spray by Each Nare route [...] SVTablation on 04/01/[address] Tovar on [facility], restrictive lung disease secondary to obesity presents from [facility] with complains of chest discomfort that [...] if hypotensive / cardiogenic shock / inferior CO / sildenafil within past 24 hours) - [...] N/A Patient is insured through: Primary Insurance: [employer] [place] [employer] [place] / Plan[place] / Product Type: *No Product type* / Secondary Insurance: N/A Prescription Coverage: Yes This plan was formulated with input from patient and team. All are in agreement with plan. * Consult Note - Maegan Mike APRN - 04/22/2023 10:38 AM EST Images from the original note were not included. [facility] [place] [phone] INPATIENT CARDIOLOGY CONSULT PROGRESS NOTE Interval events: [...] with MD Maegan De Leon, ROM Pager [phone] 04/22/2023 Associated attestation - Jaspreet Kinsey MD [...] Tatum MSW - 04/20/2023 2:22 PM EST MACHINE WORKER received a consult to support patient with financial concerns. MACHINE WORKER met with patient and introduced self. Patient stated due to hospitalization, she has been out of work and feeling stress around not being able to pay bills. I have a car payment and other bills and it's like I have to choose which one to pay and which one not to pay. MACHINE WORKER validated patient's stress around financial concerns. MACHINE WORKER asked patient if she has applied for [employer] or any other state benefits. Patient stated that she has, but is over the household income criteria to qualify for benefits. Patient shared that she owns her home outright and mainly concerned about making her car payment and transportation home. MSWstated that care management will help arrange for a ride, if needed. MACHINE WORKER provided patient with community resources such as the [employer], the [facility] Community Action phone number, and the [facility] [place] [employer] contact info. MACHINE WORKER available to support patient should anything else [...] Admitted From: Transfer from another hospital Location: [facility] Reason for Hospitalization: chest pain and cough Covid Vaccination Status: 1st, 2nd & booster Last COVID test: Lab Results Component Value Date [id number] Not Detected 06/13/2021 Past medical History: Past [...] In the past 12 months has the [employer], gas, oil, or water [place] threatened to shut off services in your home?: Yes ([employer] is currently threatening to shut off electricity [...] (see comments), grab bar - tub/shower (CPAP [employer]) Home Address confirmed as: [address] [facility] [place] [address] Social & Family Supports: All names listed below confirmed with patient as current and correct Extended Emergency Contact Information Primary Emergency Contact: Boby Madrigal [employer] Relation: Spouse Secondary Emergency Contact: TALI SHAH [...] Specific Information: N/A Health/Prescription Coverage: Primary Insurance: [employer] [facility] [place] Payor: [employer] [facility] [place] / Plan: [place] / Product Type: *No Product type* / Secondary Insurance: N/A ; Prescription Coverage: Yes Preferred Pharmacy: [id number] - [place], [place] - [address] [facility] [address] [facility] [address] [facility] - [place], [place] - [address] [facility] [address] [facility] [address] [facility] [address] Status: Patient is a : No Primary Care Provider confirmed: JOCY Franco [phone] Patient/Caregiver Goals of Treatment: home w / family when MR Potential Needs for Transition of Care: other (see comments) (MACHINE WORKER support; pt's spouse was denied twice for [...] Concerns to be Addressed: financial/insurance, discharge planning; MACHINE WORKER consult placed to discuss available resources Assessment: [...] from the original note were not included. [facility] [address] [place], [place] [address] INPATIENT CARDIOLOGY CONSULT NOTE Reason for Consult: [...] ACS with DAPT and heparin prior to [facility] 04/18, which was negative for [...] Went to cathlab, came back ~1115am, s/p [facility] with no coronary artery disease [...] for further details. JOCY Marie 04/17/2023 Pager [phone] * Plan of Care - Sudhakar Smith, [...] AM EDT Tech [place] [address] Jose Cook 10/08/2023 9:30 AM EDT Office Visit [place] [address] MD [facility] DR VASCULAR SURGERY [place], [place] [id number] 10/21/2023 10:30 AM EDT Appointment [place] [address] Mary Reyes, ROM [facility] [place] [address] 10/21/2023 11:30 AM EDT Appointment [place] [address] Mary Reyes, [facility] [place] [address] 10/21/2023 12:30 PM EDT Appointment [place] [address] Mary Reyes, [facility] [place] [address] 10/21/2023 1:30 PM EDT Appointment [place] [address] Mary Reyes, [facility] [place] [address] 10/21/2023 2:30 PM EDT Appointment [place] [address] Mary Reyes, [facility] [place] [address] 10/26/2023 4:00 PM EDT Office Visit Cardiology at [address] [place] [phone] Jaspreet Kinsey MD [facility] [place] [address] 10/28/2023 9:00 AM EDT [place] [address] 10/29/2023 10:00 AM EDT Clinical [place] [address] 10/29/2023 10:15 AM EDT Procedure [place] [address] 11/01/2023 5:00 PM EDT Office Visit G[place] [address] Selene Browning, PhD [facility] [place] [address] 11/22/2023 4:40 PM EDT Office Visit Cardiology at [address] [phone] Porsha Mcdaniels MD [facility] [place] [address] 12/13/2023 10:00 AM EDT Clinical Support [place] [address] [facility] [place] [address] documented as of this encounter Procedures Procedure [...] have questions please contact the health rn coronary care unit that requested 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 ? 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 Following IV administration of 26.5 mCi technetium 99m sestamibi, SPECT-CT of the heart was obtained. Following IV injection of 8.8 mCi 30-ucvucu-2-deoxyglucose (FDG) and a standard uptake of approximately [...] obtained. Following IV injection of 8.8 mCi 82-zqxzfy-8-deoxyglucose (FDG) and astandard uptake of approximately 60 [...] who have questions please contactthe health rn coronary care unit that requested 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 Maegan Mike PERCHER IMG PET ORDERABLE S * MRI Cardiac [...] have questions please contact the health rn coronary care unit that requested 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 ? Narrative [...] who have questions please contactthe health rn coronary care unit that requested 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 Terrence Maloney MD IMG MRI ORDERABLES * Hemogram (04/21/2023 3:40 AM EST) WBC 7.1 4.0 - 9.5 x10(3)/[facility] LABORATORY RBC 4.59 4.00 - 5.21 x10(6)/[facility] LABORATORY Hemoglobin 14.4 11.7 - 15.5 g/dL [facility] Hematocrit 43.0 35.7 - 45.8 % [facility] MCV 93.7 82.6 - 94.4 [facility] LABORATORY MCH 31.4 27.1 - 32.0 pg [facility] MCHC 33.5 31.7 - 35.0 g/dL [facility] Platelets 221 145 - 357 x10(3)/[facility] LABORATORY RDWSD 43.5 37.0 - 46.0 [facility] LABORATORY RDWCV 12.6 11.5 - 14.1 % [facility] MPV 11.1 7.6 - 12.9 [facility] LABORATORY nRBC % Auto 0.0 % [facility] LAB[facility] nRBC Abs Auto 0.000 0.000 - 0.000 x10(3)/[facility] LABORATORY Blood 04/21/2023 3:40 AM EST 04/21/2023 3:58 AM EST Narrative Resulting Agency Comment Spec In Lab Ailyn Knight MD HEMATOLOGY ORDERABLE S [facility] [place] [address] * (ABNORMAL) BMP w/fasting Glucose (04/21/2023 3:40 AM EST) [facility] Glucose Fasting 107(H) 65 - 99 mg/dL [facility] Comment: ?Fasting* Glucose Interpretive [...] of Diabetes Mellitus, Position Statement from the [place] Diabetes Association. ??Diabetes Care, Volume 33, Supplement 1, Mar 2009 BUN 20(H) 8 - 18 mg/dL [facility] Creatinine 1.14 0.70 - 1.20 mg/dL [facility] Sodium 138 135 - 145 mmol/L [facility] Potassium 3.8 3.5 - 5.0 mmol/L [facility] Comment: Please note: ??Patients with WBC >100,000 may have falsely elevated Potassium levels. ??For accurate Potassium quantification in these patients send serum separator tube (gold top) for subsequent determinations. ??Contact the Clinical Chemistry Laboratory if there are any questions. Chloride 106 98 - 107 mmol/L [facility] CO2 22 22 - 31 mmol/L [facility] Anion Gap 10 5 - 15 mmol/L [facility] Calcium 9.2 8.5 - 10.5 mg/dL [facility] Estimated GFR 57(L) >=60 mL/min/1. 73 m?? [facility] Comment: This patient's estimated [...] Knight MD CHEMISTRY ORDERABLES Performing Organization Address City/[facility] Co de Phone Number [facility] [place] [address] * Magnesium (04/21/2023 3:40 AM EST) Magnesium 0.90 0.69 - 1.07 mmol/L [facility] Blood 04/21/2023 3:40 AM EST 04/21/2023 3:58 AM EST Narrative Resulting Agency Comment Spec In Lab Ailyn Knight MD CHEMISTRY ORDERABLES Performing Organization Address City/[facility] Co de Phone Number [facility] [place] [address] * (ABNORMAL) Troponin (04/20/2023 4:44 PM EST) Troponin-T HS 26(H) <=14 ng/L [facility] Comment: This patient's troponin T [...] can be found in the [facility] Laboratory Test Catalog Troponin - [facility] Laboratory Test Catalog Reference: [place] Definition of Myocardial Infarction. Journal of the [place] [employer] 2018;72:7087-3018 Blood 04/20/2023 4:44 PM EST 04/20/2023 4:53 PM EST Narrative Resulting Agency Comment Spec In Lab Eufemia Copeland MD CHEMISTRY ORDERABL ES [facility] [place] [id number] * Duplex for DVT, Arm, Unilat (04/20/2023 4:22 PM EST) VB Text Report Department: Vascular Surgery Lab Patient: [id number] (LOIDA MADRIGAL) CPT: 29168 Referring Physician: TERRENCE MALONEY ?? Phone: Indications: [...] PM EST) Troponin-T HS 27(H) <=14 ng/L [facility] Comment: This patient's troponin T [...] can be found in the [facility] Laboratory Test Catalog Troponin - [facility] Laboratory Test Catalog Reference: [place] Definition of Myocardial Infarction. Journal of the [place] [employer] 2018;72:0756-8259 Blood 04/20/2023 1:47 PM EST 04/20/2023 2:18 PM EST Narrative Resulting Agency Comment Spec In Lab Eufemia Copeland MD CHEMISTRY ORDERABL ES [facility] [place] [address] * (ABNORMAL) Troponin (04/20/2023 10:48 AM EST) Troponin-T HS 24(H) <=14 ng/L [facility] Comment: This patient's troponin T [...] can be found in the [facility] Laboratory Test Catalog Troponin - [facility] Laboratory Test Catalog Reference: [place] Definition of Myocardial Infarction. Journal of the [place] [employer] 2018;72:5282-5652 Blood 04/20/2023 10:4 8 AM EST 04/20/2023 11:03 AM EST Narrative Resulting Agency Comment Spec In Lab Eufemia Copeland MD CHEMISTRY ORDERABL ES [facility] [place] [address] * EKG 12 Lead (04/20/2023 10:23 AM EST) Ventricular rate 60 BPM MUSE SYSTEM Atrial Rate 60 BPM MUSE SYSTEM P-R Interval 170 ms MUSE SYSTEM QRS Duration 86 ms MUSE SYSTEM Q-T Interval 470 ms MUSE SYSTEM QTC Calculated (Bezet) 470 ms MUSE SYSTEM Calculated P [place] 39 degrees MUSE SYSTEM Calculated R [place] 63 degrees MUSE SYSTEM Calculated T [place] -16 degrees MUSE SYSTEM INTERPRETATION Normal sinus [...] leads Confirmed by MD Eli, Manish [place] ([id number]) on 04/22/2023 12:10:07 PM MUSE SYSTEM 04/20/2023 10:2 3 AM EST 04/22/2023 12:10 PM EST Terrence Maloney MD ECG ORDERABLES MUSE SYSTEM * Hemogram (04/20/2023 3:11 AM EST) WBC 6.6 4.0 - 9.5 x10(3)/[facility] LABORAT[facility] RBC 4.59 4.00 - 5.21 x10(6)/[facility] Hemoglobin 14.2 11.7 - 15.5 g/dL [facility] Hematocrit 42.7 35.7 - 45.8 % [facility] MCV 93.0 82.6 - 94.4 fL [facility] MCH 30.9 27.1 - 32.0 pg [facility] MCHC 33.3 31.7 - 35.0 g/dL [facility] Platelets 231 145 - 357 x10(3)/[facility] RDWSD 43.6 37.0 - 46.0 fL [facility] RDWCV 12.6 11.5 - 14.1 % [facility] MPV 11.0 7.6 - 12.9 fL [facility] nRBC % Auto 0.0 % [facility] nRBC Abs Auto 0.000 0.000 - 0.000 x10(3)/[facility] Blood 04/20/2023 3:11 AM EST 04/20/2023 3:24 AM EST Narrative Resulting Agency Comment Spec In Lab Ailyn Knight MD HEMATOLOGY ORDERABLE S [facility] [place] [address] * (ABNORMAL) BMP w/fasting Glucose (04/20/2023 3:11 AM EST) Glucose Fasting 107(H) 65 - 99 mg/dL [facility] Comment: ?Fasting* Glucose Interpretive [...] of Diabetes Mellitus, Position Statement from the [place] [employer] Association. ??Diabetes Care, Volume 33, Supplement 1, Mar 2009 BUN 20(H) 8 - 18 mg/dL [facility] Creatinine 1.05 0.70 - 1.20 mg/dL [facility] Sodium 139 135 - 145 mmol/L [facility] Potassium 3.6 3.5 - 5.0 mmol/L [facility] Comment: Please note: ??Patients with WBC >100,000 may have falsely elevated Potassium levels. ??For accurate Potassium quantification in these patients send serum separator tube (gold top) for subsequent determinations. ??Contact the Clinical Chemistry Laboratory if there are any questions. Chloride 106 98 - 107 mmol/L [facility] CO2 21(L) 22 - 31 mmol/L [facility] Anion Gap 12 5 - 15 mmol/L [facility] Calcium 9.3 8.5 - 10.5 mg/dL [facility] Estimated GFR 63 >=60 mL/min/1. 73 m?? [facility] Comment: This patient's estimated [...] Knight MD CHEMISTRY ORDERABLES Performing Organization Address [facility] Co de Phone Number [facility] [place] [address] * Magnesium (04/20/2023 3:11 AM EST) Pathologist [facility] Magnesium 0.91 0.69 - 1.07 mmol/L [facility] Blood 04/20/2023 3:11 AM EST 04/20/2023 3:24 AM EST Narrative Resulting Agency Comment Spec In Lab Ailyn Knight MD CHEMISTRY ORDERABLES Performing Organization Address City/[facility] Co de Phone Number [facility] [place] [address] * Respiratory Panel PCR (04/19/2023 2:05 PM EST) Pathologist [facility] Resp Panel Source H[employer]IN CLASSER Swab MA [facility] Resp Panel PCR Negative Negative [facility] Comment: Respiratory Panels are performed on the Kriyari, using multiplexed PCR nucleic acid detection. ??Negative results do not preclude respiratory infection and should not be used as the sole basis for diagnosis, treatment or other management decisions. Adenovirus Not Detected Not Detected [facility] Coronavirus HKU1 Not Detected Not Detected [facility] Coronavirus NL63 Not Detected Not Detected [facility] Coronavirus 229E Not Detected Not Detected [facility] Coronavirus OC43 Not Detected Not Detected [facility] SARS-CoV-2 Not Detected Not Detected [facility] Comment: Testing for SARS-CoV-2 (Severe acute respiratory syndrome coronavirus 2) to aid in the diagnosis of COVID-19 is performed using the BioFire Respiratory Panel 2.1 ([employer]) as authorized by the FDA issued Emergency Use Authorization (EUA). This panel also tests for multiple other viral and bacterial pathogens. This assay is intended for In-vitro Diagnostic (IVD) use with nasopharyngeal swabs in viral transport media. The assay is performed based on the instructions for use and additional guidance provided by the FDA. Testing is performed in laboratories within the [facility], each of which is certified under the [...] fact sheets at the following FDA website: https://www.fda.gov/medical-devices/bstozpqweer-gaptnij-6643-nmmep-34-ftwxecexy- use-a zloncagtlrhma-gfzdkpj-bimaiih/lptao-bbjrztquhqv-mdcd Human Metapneumovirus Not Detected Not Detected [facility] Human Rhino/Enterovirus Not Detected Not Detected [facility] Influenza A Not Detected Not Detected [facility] Influenza B Not Detected Not Detected [facility] Parainfluenza 1 Not Detected Not Detected [facility] Parainfluenza 2 Not Detected Not Detected [facility] Parainfluenza 3 Not Detected Not Detected [facility] Parainfluenza 4 Not Detected Not Detected [facility] Respiratory Syncytial Virus Not Detected Not Detected [facility] Chlamydophila pneumoniae Not Detected Not Detected [facility] Mycoplasma pneumoniae Not Detected Not Detected [facility] Nasopharyngeal Swab Other / Unknown 04/19 2:05 PM EST 04/19/2023 3:16 PM EST Narrative Resulting Agency Comment Spec In Lab Carrol SANDRA MICROBIOLOGY - GENER AL ORDERABLES Performing Organization Address City/[facility] Co de Phone Number [facility] [place] [address] * (ABNORMAL) Urine culture (04/19/2023 10:25 AM EST) Urine Culture 10,000-49,000 cfu/ml mixed mucosal elmer Note: Culture shows multiple bacterial species suggesting mucosal contamination. (A) [facility] Clean Catch Urine 04/19/2023 10:25 AM EST 04/19/2023 12:49 PM EST Narrative Resulting Agency Comment Spec In Lab Carrol SANDRA MICROBIOLOGY - GENER AL ORDERABLES Performing Organization Address City/[facility]/ZIP Co de Phone Number [facility] [place] [address] * (ABNORMAL) Urinalysis Microscopic Exam (04/19/2023 10:25 AM EST) RBC UA 1 0 - 4 /HPF [facility] WBC UA 10(H) 0 - 5 /HPF [facility] Squam Epith UA 4 <=4 /HPF [facility] Hyaline Cast UA 1 0 - 2 /LPF [facility] Clean Catch Urine 04/19/2023 10:25 AM EST 04/19/2023 11:08 AM EST Narrative Resulting Agency Comment Spec In Lab Carrol SANDRA URINE ORDERABLES Performing Organization Address [facility] Co de Phone Number [facility] [place] [address] * (ABNORMAL) Urinalysis with reflex Culture (04/19/2023 10:25 AM EST) Glucose UA >=1000(Crit ical) Negative mg/dL [facility] Comment: Urinalysis result NOT critical without a combination of Glucose greater than or equal to 500 mg/dL AND Ketones greater than or equal to 80 mg/dL Protein UA Negative Negative mg/dL [facility] Bilirubin UA Negative Negative mg/dL [facility] Comment: Clinical correlation required for positive Urine Bilirubin results as false positive may occur with some drugs and drug related products. If a false positive is suspected a serum total bilirubin should be considered if clinically indicated. Urobilinogen UA Normal Normal mg/dL [facility] pH UA 5.5 5.0 - 8.0 [facility] Blood UA Negative Negative mg/dL [facility] Ketones UA Negative Negative mg/dL [facility] Nitrite UA Negative Negative [facility] Leukocytes UA Small(A) Negative [facility] Appearance UA Clear Clear [facility] Spec [place] UA 1.024 1.005 - 1.030 [facility] Color UA Yellow Yellow [facility] Culture Reflexed Yes [facility] Clean Catch Urine 04/19/2023 10:25 AM EST 04/19/2023 11:08 AM EST Narrative Resulting Agency Comment Spec In Lab Ailyn Knight MD URINE ORDERABLES [facility] [place] [address] * Arterial Duplex Arm, Unilat (04/19/2023 9:40 AM EST) VB Text Report Department: Vascular Surgery Lab Patient: [id number] (LOIDA MADRIGAL) CPT: 14665 Referring Physician: AILYN KNIGHT ?? Phone: Indications: [...] AM EST) WBC 7.5 4.0 - 9.5 x10(3)/[facility] LABORATORY RBC 4.86 4.00 - 5.21 x10(6)/[facility] Hemoglobin 14.8 11.7 - 15.5 g/dL [facility] Hematocrit 45.5 35.7 - 45.8 % [facility] MCV 93.6 82.6 - 94.4 [facility] MCH 30.5 27.1 - 32.0 pg [facility] MCHC 32.5 31.7 - 35.0 g/dL [facility] Platelets 240 145 - 357 x10(3)/[facility] RDWSD 43.8 37.0 - 46.0 [facility] RDWCV 12.7 11.5 - 14.1 % [facility] MPV 11.0 7.6 - 12.9 [facility] nRBC % Auto 0.0 % [facility] nRBC Abs Auto 0.000 0.000 - 0.000 x10(3)/mcL [facility] Blood 04/19/2023 2:40 AM EST 04/19/2023 2:57 AM EST Narrative Resulting Agency Comment Spec In Lab Ailyn Knight MD HEMATOLOGY ORDERABLE S [facility] [place] [address] * (ABNORMAL) BMP w/fasting Glucose (04/19/2023 2:40 AM EST) Glucose Fasting 106(H) 65 - 99 mg/dL [facility] Comment: ?Fasting* Glucose Interpretive [...] of Diabetes Mellitus, Position Statement from the [place] [employer]. ??Diabetes Care, Volume 33, Supplement 1, Mar 2009 BUN 22(H) 8 - 18 mg/dL [facility] Creatinine 1.11 0.70 - 1.20 mg/dL [facility] Sodium 139 135 - 145 mmol/L [facility] Potassium 4.0 3.5 - 5.0 mmol/L [facility] Comment: Please note: ??Patients with WBC >100,000 may have falsely elevated Potassium levels. ??For accurate Potassium quantification in these patients send serum separator tube (gold top) for subsequent determinations. ??Contact the Clinical Chemistry Laboratory if there are any questions. Chloride 105 98 - 107 mmol/L [facility] CO2 20(L) 22 - 31 mmol/L [facility] Anion Gap 14 5 - 15 mmol/L [facility] Calcium 9.5 8.5 - 10.5 mg/dL [facility] Estimated GFR 59(L) >=60 mL/min/1. 73 m?? [facility] Comment: This patient's estimated [...] Knight MD CHEMISTRY ORDERABLES Performing Organization Address [facility] Co de Phone Number [facility] [place] [address] * Magnesium (04/19/2023 2:40 AM EST) Magnesium 0.97 0.69 - 1.07 mmol/L [facility] Blood 04/19/2023 2:40 AM EST 04/19/2023 2:57 AM EST Narrative Resulting Agency Comment Spec In Lab Ailyn Knight MD CHEMISTRY ORDERABLES Performing Organization Address [facility] Co de Phone Number [facility] [place] [address] * CARDIAC CATHETERIZATION (04/18/2023 11:05 AM EST) Anatomical Region Laterality Modality Other Narrative 04/19/2023 6:57 AM EST ?[facility] ? Cardiac Catheterization/Intervention Report ? Patient Name: Neisha, Loida ? Procedure Date: 04/18/2023 ? A #: [id number] ? Primary Physician: Young, Dustin N ? Case #: [id number] ? File Name: [id number] ? Catheterization Order Number: [id number] ? [facility] ? Final Report [place], [place] ? Patient Name: ? Loida Neisha ? ID#: ?[id number] ? : ?1970 ? Procedure Date: ? April 18, 2023 ?Case #: ? [id number] ? Room: ? 6 ? Case Physician: [...] procedure was Urgent. The indication for ?the laboratory asst visit is ACS greater than 24 hrs. [...] Procedure Note Dustin Carrasco MD - 05/03/2023 [facility] Cardiac Catheterization/Intervention Report Patient Name: Loida Madrigal Procedure Date: 04/18/2023 A #: [id number] Primary Physician: Dustin Carrasco Case #: [id number] File Name: [id number] Catheterization Order Number: [id number] [facility] FinalReport [place], [place] Patient Name: Loida Madrigal ID#:[id number] :1970 Procedure Date: April 18, 2023 Case [...] patient was designated as ASA Class III. [facility] 4: Vulnerable. [...] diagnostic procedure was Urgent. The indicationfor the laboratory asst visit is ACS greater than 24 hrs. [...] units of heparin were administered. A total [id number] of Omnipaque were opened, 65cc of Omnipaque were administered [id number] of Omnipaque were wasted. Radiation: Fluoro time [...] AM EST) Heparin UFH Level 0.39 IU/mL [facility] Comment: Heparin (anti-Xa) levels [...] Lab Terrence Maloney MD HEMATOLOGY ORDERABLE S [facility] [place] [address] * Differential, Automated (04/18/2023 2:10 AM EST) Neutrophils % 51.4 % [facility] Neutr Abs (ANC) 3.43 1.70 - 6.10 x10(3)/[facility] LAB[facility] Lymphocytes % 33.8 % [facility] Lymphocytes Abs 2.2 0.9 - 3.2 x10(3)/[facility] Monocytes % 9.9 % [facility] Monocyte Abs 0.7 0.3 - 0.9 x10(3)/[facility] Eosinophils % 3.9 % [facility] Eosinophils Abs 0.3 0.0 - 0.4 x10(3)/[facility] Basophils % 0.8 % [facility] Basophils Abs 0.0 0.0 - 0.1 x10(3)/[facility] LAB[facility] Immature Gran % 0.20 % [facility] Comment: Immature granulocytes(IG's)percentage and absolute count will include metamyelocytes, myelocytes, and promyelocytes. Blood smears from CBCs yielding IG's will be scanned manually for concordance. If this scan disagrees with the automated IG or if promyelocytes are noted, a manual differential will be performed. Shonda Gran Abs 0.01 0.00 - 0.04 x10(3)/[facility] Blood 04/18/2023 2:10 AM EST 04/18/2023 2:44 AM EST Narrative Resulting Agency Comment Spec In Lab Terrence Maloney MD HEMATOLOGY ORDERABLE S [facility] [place] [address] * Hemogram (04/18/2023 2:10 AM EST) WBC 6.7 4.0 - 9.5 x10(3)/[facility] LAB[facility] RBC 4.93 4.00 - 5.21 x10(6)/[facility] Hemoglobin 15.2 11.7 - 15.5 g/dL [facility] Hematocrit 44.9 35.7 - 45.8 % [facility] MCV 91.1 82.6 - 94.4 fL [facility] MCH 30.8 27.1 - 32.0 pg [facility] MCHC 33.9 31.7 - 35.0 g/dL [facility] Platelets 233 145 - 357 x10(3)/[facility] LABORAT[facility] RDWSD 42.0 37.0 - 46.0 [facility] RDWCV 12.8 11.5 - 14.1 % [facility] MPV 11.3 7.6 - 12.9 [facility] nRBC % Auto 0.0 % [facility] nRBC Abs Auto 0.000 0.000 - 0.000 x10(3)/[facility] Blood 04/18/2023 2:10 AM EST 04/18/2023 2:44 AM EST Narrative Resulting Agency Comment Spec In Lab Terrence Maloney MD HEMATOLOGY ORDERABLE S Performing Organization Address City/State/[facility] Co de Phone Number [facility] [place] [address] * Heparin (unfractionated) Level (04/18/2023 2:10 AM EST) Heparin UFH Level 0.50 IU/mL [facility] Comment: Heparin (anti-Xa) levels [...] Lab Terrence Maloney MD HEMATOLOGY ORDERABLE S [facility] [place] [address] * (ABNORMAL) BMP w/fasting Glucose (04/18/2023 2:10 AM EST) Glucose Fasting 98 65 - 99 mg/dL [facility] Comment: ?Fasting* Glucose Interpretive [...] of Diabetes Mellitus, Position Statement from the [place] [employer]. ??Diabetes Care, Volume 33, Supplement 1, Mar 2009 BUN 23(H) 8 - 18 mg/dL [facility] Creatinine 1.18 0.70 - 1.20 mg/dL [facility] Sodium 143 135 - 145 mmol/L [facility] Potassium 3.6 3.5 - 5.0 mmol/L [facility] Comment: Please note: ??Patients with WBC >100,000 may have falsely elevated Potassium levels. ??For accurate Potassium quantification in these patients send serum separator tube (gold top) for subsequent determinations. ??Contact the Clinical Chemistry Laboratory if there are any questions. Chloride 107 98 - 107 mmol/L [facility] CO2 24 22 - 31 mmol/L [facility] Anion Gap 12 5 - 15 mmol/L [facility] Calcium 9.2 8.5 - 10.5 mg/dL [facility] Estimated GFR 55(L) >=60 mL/min/1. 73 m?? [facility] Comment: This patient's estimated [...] Knight MD CHEMISTRY ORDERABLES Performing Organization Address City/[facility] Co de Phone Number [facility] [place] [address] * Magnesium (04/18/2023 2:10 AM EST) Magnesium 1.02 0.69 - 1.07 mmol/L [facility] Blood 04/18/2023 2:10 AM EST 04/18/2023 2:44 AM EST Narrative Resulting Agency Comment Spec In Lab Ailyn Knight MD CHEMISTRY ORDERABLES Performing Organization Address City/[facility]/ZIP Co de Phone Number [facility] [place] [address] * LDL Cholesterol, Direct (04/18/2023 2:10 AM EST) LDL Chol Direct 105 mg/dL [facility] Comment: Lowest Risk: <100 mg/dL Lower Risk: 100-129 mg/dL Borderline High Risk: 130-159 mg/dL High Risk: 160-189 mg/dL Very High Risk: >xp=047 mg/dL Blood 04/18/2023 2:10 AM EST 04/18/2023 2:44 AM EST Narrative Resulting Agency Comment Spec In Lab Terrence Maloney MD CHEMISTRY ORDERABLES Performing Organization Address [facility] Co de Phone Number [facility] [place] [address] * Hemoglobin A1c (04/18/2023 2:10 AM EST) Hemoglobin A1C 5.6 4.3 - 5.6 % [facility] Comment: Reference Range: 4.3 [...] Mellitus, Diabetes Care 2013; 36: Suppl. 1, Q77-03 Est Avg Gluc 115 mg/dL [facility] Blood 04/18/2023 2:10 AM EST 04/18/2023 2:44 AM EST Narrative Resulting Agency Comment Spec In Lab Terrence Maloney MD CHEMISTRY ORDERABLES Performing Organization Address [facility] Co de Phone Number [facility] [place] [address] * Lipid Panel (Reflex Direct LDL) (04/18/2023 2:10 AM EST) Chol, Total 173 mg/dL [facility] Comment: Lower Risk: <200 mg/dL Average Risk: 200-239 mg/dL Higher Risk: >qz=198 mg/dL Triglycerides 174 mg/dL [facility] Comment: Average Risk/Lower Risk: <150 mg/dL Borderline High Risk: 150-199 mg/dL High Risk: 200-499 mg/dL Very High Risk: >ts=449 mg/dL HDL 44 mg/dL [facility] Comment: Males: ?? Higher Risk: <40 mg/dL Females: ?? Higher Risk: <50 mg/dL LDL Cholesterol 94 mg/dL [facility] Comment: Lowest Risk: <100 mg/dL Lower Risk: 100-129 mg/dL Borderline High Risk: 130-159 mg/dL High Risk: 160-189 mg/dL Very High Risk: >mk=264 mg/dL Chol/HDL Ratio 3.9 ratio [facility] Lipid Interpretation See Note [facility] Comment: Lipid management should be guided by a patient? s ASCVD risk, goals and preferences. ACC/AHA Guidelines recommend high intensity statin if clinical ASCVD or LDL greater than or equal to 190 mg/dL. [email or web address] Adults aged 40-75 with LDL 70-189 mg/dL should have their 10 year ASCVD risk estimated with the ACC/AHA ASCVD risk long term care social worker http://tools.acc.org/WJKBB-Anlk-Xktxrlheq/ Statin should be discussed if risk greater [...] In Lab Terrence Maloney MD CHEMISTRY ORDERABLES [facility] [place] [address] * POCT Glucose (04/17/2023 7:44 PM EST) POC Glucose 128 65 - 199 mg/dL [facility] Comment: Supplemental ranges: <140 mg/dL before meals <180 mg/dL all other times of the day Blood 04/17/2023 7:44 PM EST 04/17/2023 7:44 PM EST Ailyn Knight MD POINT OF CARE TEST O RDERABLES Performing Organization Address [facility] Co de Phone Number [facility] [place] [address] * (ABNORMAL) Heparin (unfractionated) Level (04/17/2023 6:01 PM EST) [facility] Heparin UFH Level 1.14(Crit ical) IU/mL [facility] Comment: Critical Result called [...] MD HEMATOLOGY ORDERABLE S Performing Organization Address [facility] Co de Phone Number [facility] [place] [address] * (ABNORMAL) Heparin (unfractionated) Level (04/17/2023 12:45 PM EST) Heparin UFH Level 1.39(Crit ical) IU/mL [facility] Comment: Critical Result called by ?? KAFLCASSI CRITICAL Results read back by: ? aMrta Callaway at 2023-04-17 13:10:45 Heparin (anti-Xa) levels [...] Lab Ailyn Knight MD HEMATOLOGY ORDERABLE S [facility] [place] [address] * ECHO LMTD W CONTRAST W LMTD SPEC DOPP COLOR DOPP (04/17/2023 11:59 AM EST) EF 58 HEARTLAB SYSTEM Anatomical Region Laterality Modality Cardiac Other 04/17/2023 10:2 4 AM EST Narrative 04/17/2023 12:09 PM EST 1 [place] [address] ? Echocardiogram Report Name: LOIDA MADRIGAL ? Study Date: 04/17/2023 10:24 AMBP: 114/64 mmHg ? Patient Location: : 1970 ? Height: 160 cm ? Account: [id number] Age: 53 yrs ? Weight: 98 kg Gender: Female ?BSA: 2.0 m2 Ordering Physician: TERRENCE MALONEY Referring Physician: TERRENCE MALONEY Performed By: HAIM Becerra Reason For Study: Chest pain; NSTEMI Exam Location: [facility]. Interpretation Summary Left ventricle is normal in size and wall thickness. Normal global systolic function with regional wall motion abnormalities as ascribed on the anterior/anterolateral aspect. Right ventricle is normal in size and systolic function. No significant cardiac valve findings. No pericardial effusion. Compared to prior study dated 02/09/2023, the extent of the anterior abnormal wall motion has increased. Procedure Limited - [id number]. Image enhancement Optison was used for left [...] Note Jaspreet Kinsey MD - 04/17/2023 1 [place] [address] Echocardiogram Report Name: LOIDA MADRIGAL Study Date: 0:24 AMBP: 114/64 mmHg Patient Location: : 1970 Height: 160 cm Account: [id number] Age: 53 yrs Weight: 98 kg Gender: Female BSA: 2.0 m2 Ordering Physician: TERRENCE MALONEY Referring Physician: TERRENCE MALONEY Performed By: HAIM Becerra Reason For Study: Chest pain; NSTEMI Exam Location: [facility]. Interpretation Summary Left ventricle is normal in size and wall thickness. Normal globalsystolic function with regional wall motion abnormalities as ascribed on the anterior/anterolateral aspect. Right ventricle is normal in size and systolic function. No significant cardiac valve findings. No pericardial effusion. Compared to prior study dated 02/09/2023, the extent of the anteriorabnormal wall motion has increased. Procedure Limited - [id number]. Image enhancement Optison was used for left [...] EST) Heparin UFH Level 1.41(Crit ical) IU/mL [facility] Comment: Critical Result called [...] Lab Terrence Maloney MD HEMATOLOGY ORDERABLE S [facility] [place] [address] * (ABNORMAL) Troponin (04/17/2023 6:43 AM EST) Troponin-T HS 23(H) <=14 ng/L [facility] Comment: This patient's troponin T [...] can be found in the [facility] Laboratory Test Catalog Troponin - [facility] Laboratory Test Catalog Reference: [place] Definition of Myocardial Infarction. Journal of the [place] [employer] 2018;72:1496-9310 Blood 04/17/2023 6:43 AM EST 04/17/2023 6:52 AM EST Narrative Resulting Agency Comment Spec In Lab Terrence Maloney MD CHEMISTRY ORDERABLES [facility] [place] [id number] * EKG 12 Lead (04/17/2023 3:41 AM EST) Ventricular rate 47 BPM MUSE SYSTEM Atrial Rate 47 BPM MUSE SYSTEM P-R Interval 186 ms MUSE SYSTEM QRS Duration 90 ms MUSE SYSTEM Q-T Interval 578 ms MUSE SYSTEM QTC Calculated (Bezet) 511 ms MUSE SYSTEM Calculated P [place] 24 degrees MUSE SYSTEM Calculated R [place] 23 degrees MUSE SYSTEM Calculated T [place] 27 degrees MUSE SYSTEM INTERPRETATION Sinus bradycardia with Premature atrial complexes Possible Left atrial enlargement Possible Lateral infarct , age undetermined Prolonged QT Abnormal ECG When compared with ECG of 01-APR-2023 12:28, Premature atrial complexes are now Present Vent. rate has decreased BY ??33 BPM Nonspecific T wave abnormality, improved in Anterior leads Confirmed by MD Angelo Danette ([id number]) on 04/20/2023 8:28:40 PM MUSE SYSTEM 04/17/2023 3:41 AM EST 04/20/2023 8:28 PM EST Terrence Maloney MD ECG ORDERABLES MUSE SYSTEM * Differential, Automated (04/17/2023 3:33 AM EST) Neutrophils % 54.4 % [facility] Neutr Abs (ANC) 4.02 1.70 - 6.10 x10(3)/[facility] LABORATORY Lymphocytes % 32.0 % [facility] Lymphocytes Abs 2.4 0.9 - 3.2 x10(3)/[facility] LABORATORY Monocytes % 8.7 % [facility] Monocyte Abs 0.6 0.3 - 0.9 x10(3)/[facility] LABORATORY Eosinophils % 3.9 % [facility] Eosinophils Abs 0.3 0.0 - 0.4 x10(3)/[facility] LABORATORY Basophils % 0.7 % [facility] Basophils Abs 0.0 0.0 - 0.1 x10(3)/[facility] LABORATORY Immature Gran % 0.30 % [facility] Comment: Immature granulocytes(IG's)percentage and absolute count will include metamyelocytes, myelocytes, and promyelocytes. Blood smears from CBCs yielding IG's will be scanned manually for concordance. If this scan disagrees with the automated IG or if promyelocytes are noted, a manual differential will be performed. Shonda Gran Abs 0.02 0.00 - 0.04 x10(3)/[facility] LABORATORY Blood 04/17/2023 3:33 AM EST 04/17/2023 3:42 AM EST Narrative Resulting Agency Comment Spec In Lab Terrence Maloney MD HEMATOLOGY ORDERABLE S [facility] [place] [address] * Hemogram (04/17/2023 3:33 AM EST) WBC 7.4 4.0 - 9.5 x10(3)/[facility] LABORATORY RBC 4.79 4.00 - 5.21 x10(6)/[facility]ORY Hemoglobin 14.8 11.7 - 15.5 g/dL [facility] Hematocrit 44.3 35.7 - 45.8 % [facility] MCV 92.5 82.6 - 94.4 fL [facility] MCH 30.9 27.1 - 32.0 pg [facility] MCHC 33.4 31.7 - 35.0 g/dL [facility] Platelets 233 145 - 357 x10(3)/[facility] RDWSD 43.4 37.0 - 46.0 [facility] LABORATORY RDWCV 12.7 11.5 - 14.1 % [facility] MPV 11.0 7.6 - 12.9 [facility] LABORATORY nRBC % Auto 0.0 % [facility] nRBC Abs Auto 0.000 0.000 - 0.000 x10(3)/[facility] LABORATORY Blood 04/17/2023 3:33 AM EST 04/17/2023 3:42 AM EST Narrative Resulting Agency Comment Spec In Lab Terrence Maloney MD HEMATOLOGY ORDERABLE S [facility] [place] [address] * Sedimentation rate (04/17/2023 3:33 AM EST) Sed Rate 12 2 - 39 mm/hr [facility] Comment: Effective February 15, 2019 new capillary photometric technology has resulted in a change in reference ranges. It is recommended that each ESR result be reviewed with its own age appropriate reference range. Blood 04/17/2023 3:33 AM EST 04/17/2023 3:42 AM EST Narrative Resulting Agency Comment Spec In Lab Terrence Maloney MD HEMATOLOGY ORDERABLE S Performing Organization Address City/[facility]/ZIP Co de Phone Number [facility] [place] [address] * CRP, acute inflammation (04/17/2023 3:33 AM EST) CRP <3.0 <=4.9 mg/L [facility] Blood 04/17/2023 3:33 AM EST 04/17/2023 3:42 AM EST Narrative Resulting Agency Comment Spec In Lab Terrence Maloney MD CHEMISTRY ORDERABLES Performing Organization Address [facility] Co de Phone Number [facility] [place] [address] * (ABNORMAL) Troponin (04/17/2023 3:33 AM EST) Troponin-T HS 24(H) <=14 ng/L [facility] Comment: This patient's troponin T [...] can be found in the [facility] Laboratory Test Catalog Troponin - [facility] Laboratory Test Catalog Reference: [place] Definition of Myocardial Infarction. Journal of the [place] [employer] 2018;72:7324-0229 Blood 04/17/2023 3:33 AM EST 04/17/2023 3:42 AM EST Narrative Resulting Agency Comment Spec In Lab Terrence Maloney MD CHEMISTRY ORDERABLES Performing Organization Address [facility] Co de Phone Number [facility] [place] [address] * (ABNORMAL) APTT (04/17/2023 3:33 AM EST) PTT 40(H) 25 - 37 sec [facility] Comment: The PTT is NOT appropriate for heparin monitoring. Use the Anti-Xa level for heparin monitoring (HEP UFH) or LMWH monitoring (HEP LMW). A PTT less than 37 seconds generally indicates adequate hemostasis. Blood 04/17/2023 3:33 AM EST 04/17/2023 3:42 AM EST Narrative Resulting Agency Comment Spec In Lab Terrence Maloney MD HEMATOLOGY ORDERABLE S Performing Organization Address [facility] de Phone Number [facility] [place] [address] * (ABNORMAL) Prothrombin Time (04/17/2023 3:33 AM EST) PT 13.3(H) 9.4 - 12.5 sec [facility] INR 1.2 [facility] Comment: [...] MD HEMATOLOGY ORDERABLE S Performing Organization Address City/[facility] Co de Phone Number [facility] [place] [address] * Hepatic Function Panel (04/17/2023 3:33 AM EST) [facility] Total Protein 6.9 6.1 - 8.0 g/dL [facility] Albumin 4.2 3.2 - 5.2 g/dL [facility] AST Not Perf 0 - 30 [facility] Comment: Unable to quantitate due to sample hemolysis. ??Sample redraw suggested. Called by: Danny Bowles, Read back by: Nyla Cassidy, Date/Time:04/17/23 05:06. ALT 17 0 - 30 unit/L [facility] Alk Phos 59 35 - 105 unit/L [facility] Total Bilirubin 0.4 0.2 - 1.3 mg/dL [facility] Bili, Direct 0.1 0.0 - 0.3 mg/dL [facility] Blood 04/17/2023 3:33 AM EST 04/17/2023 3:42 AM EST Narrative Resulting Agency Comment Spec In Lab Terrence Maloney MD CHEMISTRY ORDERABLES Performing Organization Address City/[facility]/ZIP Co de Phone Number [facility] [place] [address] * (ABNORMAL) pro-Brain Natriuretic Peptide (04/17/2023 3:33 AM EST) [facility] ProBNP 867(H) <=124 pg/mL [facility] Blood 04/17/2023 3:33 AM EST 04/17/2023 3:42 AM EST Narrative Resulting Agency Comment Spec In Lab Terrence Maloney MD CHEMISTRY ORDERABLES Performing Organization Address City/[facility]/ZIP Co de Phone Number [facility] [place] [address] * (ABNORMAL) TSH (04/17/2023 3:33 AM EST) TSH 5.93(H) 0.27 - 4.20 mcIU/mL [facility] Comment: Reference Interval (mcIU/mL): Females: ??First Trimester: 0.23-3.88 ??Second Trimester: 0.22-3.90 ??Third Trimester: 0.44-4.66 Blood 04/17/2023 3:33 AM EST 04/17/2023 3:42 AM EST Narrative Resulting Agency Comment Spec In Lab Terrence Maloney MD CHEMISTRY ORDERABLES Performing Organization Address [facility] Co de Phone Number [facility] [place] [address] * Phosphorus (04/17/2023 3:33 AM EST) Pathologist [facility] Phosphorus 4.1 2.5 - 4.5 mg/dL [facility] Blood 04/17/2023 3:33 AM EST 04/17/2023 3:42 AM EST Narrative Resulting Agency Comment Spec In Lab Terrence Maloney MD CHEMISTRY ORDERABLES Performing Organization Address [facility] Co de Phone Number [facility] [place] [address] * Magnesium (04/17/2023 3:33 AM EST) Pathologist [facility] Magnesium 0.99 0.69 - 1.07 mmol/L [facility] Blood 04/17/2023 3:33 AM EST 04/17/2023 3:42 AM EST Narrative Resulting Agency Comment Spec In Lab Terrence Maloney MD CHEMISTRY ORDERABLES Performing Organization Address [facility] Co de Phone Number [facility] [place] [address] * (ABNORMAL) Basic Metabolic Panel (non-fasting) (04/17/2023 3:33 AM EST) Pathologist [facility] Glucose Lvl 89 65 - 199 mg/dL [facility] Comment:Diabetes: >=200 mg/d L plus symptoms BUN 19(H) 8 - 18 mg/dL [facility] Creatinine 1.19 0.70 - 1.20 mg/dL [facility] Sodium 141 135 - 145 mmol/L [facility] Potassium 4.0 3.5 - 5.0 mmol/L [facility] Comment: Please note: ??Patients with WBC >100,000 may have falsely elevated Potassium levels. ??For accurate Potassium quantification in these patients send serum separator tube (gold top) for subsequent determinations. ??Contact the Clinical Chemistry Laboratory if there are any questions. Chloride 106 98 - 107 mmol/L [facility] CO2 22 22 - 31 mmol/L [facility] Anion Gap 13 5 - 15 mmol/L [facility] Calcium 9.4 8.5 - 10.5 mg/dL [facility] Estimated GFR 54(L) >=60 mL/min/1. 73 m?? [facility] Comment: This patient's estimated [...] In Lab Terrence Maloney MD CHEMISTRY ORDERABLES [facility] [place] [address] * Film Library- Storage Only CT Chest (04/16/2023 12:00 AM EST) Narrative Dicom, Auditing User - 04/17/2023 3:00 AM EST This exam is auto-finalizing. It's purpose is for storage only. Polo [facility]DRA [facility] FILM LIBRARY ORD ERABLES [...] 81 mg, Oral, DAILY, First dose on [facility] 04/17/23 at 1430, Until Discontinued, Routine Given [...] documented as of this encounter Care Teams Brazing Furnace Operator Relationship Specialty Start Date End Date Polo Pearce PA [address] [place] [address] PCP - General Internal Medicine 06/09/21 documented as of this encounter
--- OUTSIDE RECORDS SUMMARY | 2023-09-20 18:35 | XMS_ITS | Encounter Summary ---
[place] [address] Care Team Providers Care Vigoureux Printer Name Role Phone Polo Pearce Primary Care Provider [phone] Reason for Visit * Auth/Cert (Routine) Specialty Diagnoses / Procedures Referred By Jayant harris Referred To Contact Diagnoses NSTEMI (non-ST elevated myocardial infarction) NSTEMI Procedures ER Lloyd Pantoja MD [facility] [place] [address] [facility] Referral ID Status Reason Start Date Expiration Date Visits Re quested Visits Authorized [id number] 1 1 Encounter Details Date Type Department Care Team (Latest Contact Info) Description 04/17/2023 9:15 AM EST - 04/17/2023 11:59 PM EST Hospital Encounter Non-[place] [address] Discharge Disposition: Home Social History Tobacco Use Types Packs/Day Years Used Date Smoking Tobacco: Never Smokeless Tobacco: Never Alcohol Use Standard Drinks/Week Comments Never 0 (1 standard drink = 0.6 oz pur e alcohol) [facility] Utilities Answer Date Recorded In the [...] in a prison (including now)? No 02/10/2023 DH IPV Inpatient [...] as needed. fluticasone propionate (FLONASE) 50 mcg/actuation [place], Suspension 1 spray by Each Nare route [...] AM EDT Tech [place] [address] Jose Cook 10/08/2023 9:30 AM EDT Office [place] [address] MD [facility] [place]ASCULAR [place] [address] 10/21/2023 10:30 AM EDT Appointment Nuclear Medicine at [address] Mary Reyes, [facility] [place] [address] 10/21/2023 11:30 AM EDT Appointment Nuclear Medicine at [address] Mary Reyes [facility] [place] [address] 10/21/2023 12:30 PM EDT Appointment [place] [address] Mary Reyes [facility] [place] [address] 10/21/2023 1:30 PM EDT Appointment [place] [address] Mary Reyes [facility] [place] [address] 10/21/2023 2:30 PM EDT Appointment [place] [address] Mary Reyes [facility] [place] [address] 10/26/2023 4:00 PM EDT Office Visit Cardiology at [address] [place] [address] Jaspreet Kinsey MD [facility] [place] [address] 10/28/2023 9:00 AM EDT Office [place] [address] 10/29/2023 10:00 AM EDT Clinical [place] [address] 10/29/2023 10:15 AM EDT Procedure [place] [address] 11/01/2023 5:00 PM EDT Office [place] [phone] Selene Browning, PhD [facility] [place] [address] 11/22/2023 4:40 PM EDT Office Visit Cardiology at [address] [phone] Porsha Mcdaniels MD [facility] [place] [address] 12/13/2023 10:00 AM EDT Clinical [place] [phone] [facility] [place] [address] documented as of this encounter Procedures Procedure [...] mLs documented in this encounter Care Teams Vigoureux Printer Relationship Specialty Start Date End Date Polo Pearce PA [address] [place] [address] PCP - General Internal Medicine 06/09/21 documented as of this encounter
--- OUTSIDE RECORDS SUMMARY | 2023-09-20 18:35 | XMS_ITS | Encounter Summary ---
[place] [address] Care Team Providers Care Branch Service Associate Name Role Phone Polo Pearce Primary Care Provider [phone] Encounter Details Date Type Department Care Team (Late st Contact Info) Description 04/16/2023 Ancillary Procedure [place] [address] Social History Tobacco Use Types Packs/Day Years Used Date Smoking Tobacco: Never Smokeless Tobacco: Never Alcohol Use Standard Drinks/Week Comments Never 0 (1 standard drink = 0.6 oz pur e alcohol) [facility] Utilities Answer Date Recorded In the [...] in a longterm (including now)? No 02/10/2023 IPV Inpatient Questions [...] AM EDT Tech Visit Vascular Lab at [place] [phone] Jose Cook 10/08/2023 9:30 AM EDT Office [place] [phone] MD [facility] [place] [address] 10/21/2023 10:30 AM EDT Appointment [place] [phone] Mary Reyes APRN [facility] GASTROENTEROLOGY [place] [phone] 10/21/2023 11:30 AM EDT Appointment [place] [phone] Mary Reyes APRN [facility] [place] [address] 10/21/2023 12:30 PM EDT Appointment [place] [address] Mary Reyes [facility] [place] [address] 10/21/2023 1:30 PM EDT Appointment [place] [address] Mary Reyes [facility] [place] [address] 10/21/2023 2:30 PM EDT Appointment [place] [address] Mary Reyes [facility] [place] [address] 10/26/2023 4:00 PM EDT Office Visit Cardiology at [address] [phone] Jaspreet Kinsey MD [facility] [place] [address] 10/28/2023 9:00 AM EDT Office [place] [address] 10/29/2023 10:00 AM EDT Clinical [place] [address] 10/29/2023 10:15 AM EDT Procedure [place] [address] 11/01/2023 5:00 PM EDT Office [place] [phone] Selene Browning, PhD [facility] [place] [address] 11/22/2023 4:40 PM EDT Office Visit Cardiology at [address] [phone] Porsha Mcdaniels MD [facility] [place] [address] 12/13/2023 10:00 AM EDT Clinical Support Gastroenterology at [place] [phone] Lucero Romero, RD [facility] [address] [place] [phone] documented as of this encounter Procedures Procedure [...] on filedocumented in this encounter Care Teams Branch Service Associate Relationship Specialty Start Date End Date Polo Pearce PA [address] [place] [address] PCP - General Internal Medicine 06/09/21 documented as of this encounter
--- OUTSIDE RECORDS SUMMARY | 2023-09-20 18:35 | XMS_ITS | Encounter Summary ---
Author Organization [facility] [place] [address] Care Team Providers Care Liquor Blender Name Role Phone Polo Pearce Primary Care Provider [phone] Reason for Visit * Reason Onset Date Comments Post Procedure Call 04/08/2023 Encounter Details Date Type Department Care Team (Late st Contact Info) Description 04/08/2023 Notes Only Cardiology at [address] [phone] Mary Motta, RN Post Procedure Call Social History Tobacco Use Types Packs/Day Years Used Date Smoking Tobacco: Never Smokeless Tobacco: Never Alcohol Use Standard Drinks/Week Comments Never 0 (1 standard drink = 0.6 oz pur e alcohol) [facility] Utilities Answer Date Recorded In the past 12 months has e [employer], gas, oil, or water [employer] threatened to shut off services in [...] with Dr. Tovar in 1-3 months at [facility] Catheter Insertion Area Care - You may [...] of any new medications initiated at the [facility]. The patient should be aware and [...] his/her physician or the Cardiac Electrophysiology Service ([phone]). documented in this encounter Plan of Treatment Upcoming Encounters Date Type Department Care Team (Late st Contact Info) Description 10/08/2023 8:30 AM EDT Tech [place] [address]-1000 Jose Cook 10/08/2023 9:30 AM EDT Office Visit [place] [address]-[address] MD [facility] [place] [address] 10/21/2023 10:30 AM EDT Appointment [place] [address]-1000 Mary Reyes APRN [facility] [place] [address] 10/21/2023 11:30 AM EDT Appointment [place] [address]-1000 Mary Reyes APRN [facility] [place] [address] 10/21/2023 12:30 PM EDT Appointment [place] [address] Mary Reyes [facility] [address] 10/21/2023 1:30 PM EDT Appointment [place] [address] Mary Reyes, [facility] [address] 10/21/2023 2:30 PM EDT Appointment [place] [address] Mary Reyes, [facility] [address] 10/26/2023 4:00 PM EDT Office Visit Cardiology at [address] [phone] Jaspreet Kinsey MD [facility] [place] [address] 10/28/2023 9:00 AM EDT Office [place] [address] 10/29/2023 10:00 AM EDT Clinical [place] [address] 10/29/2023 10:15 AM EDT Procedure [place] [address] 11/01/2023 5:00 PM EDT Office Visit Gastroenterology at [place] [phone] Selene Browning, PhD [facility] [place] [address] 11/22/2023 4:40 PM EDT Office Visit Cardiology at [address] Porsha Mcdaniels MD [facility] [place] [address] 12/13/2023 10:00 AM EDT Clinical Support Gastroenterology at [place] [phone] Lucero Romero, [place] [facility] [place] [address] documented as of this encounter Visit Diagnoses Not on filedocumented in this encounter Care Teams Liquor Blender Relationship Specialty Start Date End Date Polo Pearce PA [address] [place] [address] PCP - General Internal Medicine 06/09/21 documented as of this encounter
--- OUTSIDE RECORDS SUMMARY | 2023-09-20 18:35 | XMS_ITS | Encounter Summary ---
Author Organization [facility] [place] [address] Care Team Providers Care Steam Room Attendant Name Role Phone Polo Pearce Primary Care Provider [phone] Encounter Details Date Type Department Care Team (Late st Contact Info) Description 04/16/2023 Telephone Cardiology at [address] [phone] Vaishnavi Pratt MD [facility] [place] [address] Social History Tobacco Use Types Packs/Day Years Used Date Smoking Tobacco: Never Smokeless Tobacco: Never Alcohol Use Standard Drinks/Week Comments Never 0 (1 standard drink = 0.6 oz pur e alcohol) [facility] Utilities Answer Date Recorded In the past 12 months has [employer], gas, oil, or water [employer] threatened to shut off services in your [...] Tech Visit Vascular Lab at [place] [phone] Jose Cook 10/08/2023 9:30 AM EDT Office [place] [address] MD [facility] [place] [address] 10/21/2023 10:30 AM EDT Appointment Nuclear Medicine at [place] [phone] Mary Reyes APRN [facility] [place] [address] 10/21/2023 11:30 AM EDT Appointment Nuclear Medicine at [facility] [place] [address] Mary Reyes [facility] [place] [address] 10/21/2023 12:30 PM EDT Appointment Nuclear Medicine at [place] [phone] Mary Reyes [facility] [place] [address] 10/21/2023 1:30 PM EDT Appointment [place] [address] Mary Reyes [facility] [place] [address] 10/21/2023 2:30 PM EDT Appointment [place] [address] Mary Reyes [facility] [place] [address] 10/26/2023 4:00 PM EDT Office Visit Cardiology at [address] [phone] Jaspreet Kinsey MD [facility] [address] 10/28/2023 9:00 AM EDT Office [place] [address] 10/29/2023 10:00 AM EDT Clinical [place] [address] 10/29/2023 10:15 AM EDT Procedure [place] [address] 11/01/2023 5:00 PM EDT Office Visit Gastroenterology at [place] [phone] Selene Browning, PhD [facility] [place] [address] 11/22/2023 4:40 PM EDT Office Visit Cardiology at [place] [phone] Porsha Mcdaniels MD [facility] [place] [address] 12/13/2023 10:00 AM EDT Clinical [place] [address]-[address] [facility] [place] [address] documented as of this encounter Visit Diagnoses [...] documented as of this encounter Care Teams Steam Room Attendant Relationship Specialty Start Date End Date Polo Pearce PA [address] [place] [address] PCP - General Internal Medicine 06/09/21 documented as of this encounter
--- OUTSIDE RECORDS SUMMARY | 2023-09-20 18:36 | XMS_ITS | Encounter Summary ---
Author Organization [facility] Address [facility] [place] [address] Care Team Providers Care Tapper Balance Wheel Screw Hole Name Role Phone Polo Pearce Primary Care Provider [phone] Encounter Details Date Type Department Care Team (Late st Contact Info) Description 02/08/2023 Telephone Cardiology at [address] [address] Ericka Brenner PA [facility] [place] [address] Social History Tobacco Use Types Packs/Day Years [...] PM Referring Provider: Dr. Iyer Patient Location: [facility] Brief History 52 year old female with [...] acute aortopathy. 4. No acute pulmonary findings. [facility] 08/2019: Conclusions: * Normal coronary arteries OSH Interventions: Sl nitro Full dose ASA Assessment & Plan: 52 year old female with history of prior NSTEMI with normal coronaries 2019, recent coronary CTA with ca score 198), HTN, HLD, HFpEF, Afib (on Eliquis) who is presenting with chest pain. Has had similar presentation in 2019 with a [facility] demonstrating normal coronaries at that time. [...] as type 1 NSTEMI and transfer to [facility] for further evaluation. - agree with nitro gtt if not chest pain free - if persistent chest pain with nitro gtt would load Plavix 600mg - start IV heparin gtt 12 hours post last dose of Eliquis - BB as able, HI statin - transfer to [facility] 02/08/23 Above recommendations were based on my discussion with Dr. Iyer; I have not personally interviewed or examined this patient. I encouraged them to contact us if there is any change in symptoms, decision- making, or further need for guidance in management. Ericka Brenner PA-C Access Pager [phone] 02/08/2023 documented in this encounter Plan of Treatment Upcoming Encounters Date Type Department Care Team (Late st Contact Info) Description 10/08/2023 8:30 AM EDT Tech Visit Vascular Lab at [place] [phone] Jose Cook 10/08/2023 9:30 AM EDT Office Visit Vascular Surgery at [place] [phone] MD [facility] [address] [place] [address] 10/21/2023 10:30 AM EDT Appointment Nuclear Medicine at [place] [phone] Mary Reyes [facility] [place] [address] 10/21/2023 11:30 AM EDT Appointment Nuclear Medicine at [place] [phone] Mary eRyes NEWSPAPER OR PERIODICAL EDITOR [facility] [place] [address] 10/21/2023 12:30 PM EDT Appointment [place] [address] Mary Reyes, [facility] [place] [address] 10/21/2023 1:30 PM EDT Appointment [place] [address] Mary Reyes, [facility] [place] [address] 10/21/2023 2:30 PM EDT Appointment [place] [address] Mary Reyes, [facility] [place] [address] 10/26/2023 4:00 PM EDT Office Visit Cardiology at [address] [phone] Jaspreet Kinsey MD [facility] [place] [address] 10/28/2023 9:00 AM EDT Office [place] [address] 10/29/2023 10:00 AM EDT Clinical [place] [address] 10/29/2023 10:15 AM EDT Procedure [place] [address] 11/01/2023 5:00 PM EDT Office Visit [place] [address] Selene Browning, PhD [facility] [place] [address] 11/22/2023 4:40 PM EDT Office Visit Cardiology at [address] [phone] Porsha Mcdaniels MD [facility] CARDIOLOGY [place], [place] 3604756 12/13/2023 10:00 AM EDT Clinical Support [place] [address] [facility] [place] [address] documented as of this encounter Visit Diagnoses Not on filedocumented in this encounter Care Teams Tapper Balance Wheel Screw Hole Relationship Specialty Start Date End Date Polo Pearce PA Sb MOTT [address] [place] [address] PCP - General Internal Medicine 06/09/21 documented as of this encounter
--- OUTSIDE RECORDS SUMMARY | 2023-09-20 18:36 | XMS_ITS | Encounter Summary ---
Author Organization [facility] Address [facility] [place] [address] Care Team Providers Care Supervisor Beater Room Name Role Phone Polo Pearce Primary Care Provider [phone] Encounter Details Date Type Department Care Team (Late st Contact Info) Description 02/16/2023 11:20 AM EST Office Visit Cardiology at [address] [place] [address] Jed Tovar [place] [address] PAF (paroxysmal atrial fibrillation); SVT (supraventricular tachycardia) Social History Tobacco Use Types Packs/Day Years Used Date Smoking Tobacco: Never Smokeless Tobacco: Never Alcohol Use Standard Drinks/Week Comments Never 0 (1 standard drink = 0.6 oz pur e alcohol) [facility] Utilities Answer Date Recorded In the past 12 months has [employer], gas, oil, or water [employer] threatened to shut off services in your [...] slept in a half-way (including now)? No 02/10/2023 Sex and Gender [...] Cardiac Electrophysiology Follow Up Patient ID Indira Rqoue [id number] Indira Roque is following up in EP [...] upper lobe. Started on eliquis 08/2022 TTE ([facility]): normal bi-v s/f. 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 I have personally reviewed all [...] permanent pacemaker insertion, and the risk of stroke/SC/deathshould left-sided access be required) were reviewed in [...] AM EDT Tech [place] [address] Jose Cook 10/08/2023 9:30 AM EDT Office Visit [place] [address] MD [facility] [place] [address] 10/21/2023 10:30 AM EDT Appointment Nuclear Medicine at [address]1000 Mary Reyes, [facility] [place] [address] 10/21/2023 11:30 AM EDT Appointment Nuclear Medicine at [address]1000 Mary Reyes [facility] [place] [address] 10/21/2023 12:30 PM EDT Appointment [place] [address] Mary Reyes [facility] [place] [address] 10/21/2023 1:30 PM EDT Appointment [place] [address] Mary Reyes [facility] [place] [address] 10/21/2023 2:30 PM EDT Appointment [place] [address] Mary Reyes [facility] [place] [address] 10/26/2023 4:00 PM EDT Office Visit Cardiology at [address] [address] Jaspreet Kinsey MD [facility] [place] [address] 10/28/2023 9:00 AM EDT Office Visit [place] [address] 10/29/2023 10:00 AM EDT Clinical Support [place] [address] 10/29/2023 10:15 AM EDT Procedure visit [place] [address] 11/01/2023 5:00 PM EDT Office Visit G[place] [address] Selene Browning, PhD [facility] [place] [address] 11/22/2023 4:40 PM EDT Office Visit Cardiology at [address] [phone] Porsha Mcdaniels MD [facility] [place] [address] 12/13/2023 10:00 AM EDT Clinical Support [place] [address] [facility] [place] [address] Scheduled Orders Name Type Priority Associated Diagnoses [...] (Bezet) 511 ms MUSE SYSTEM Calculated P [place] 24 degrees MUSE SYSTEM Calculated R [place] 35 degrees MUSE SYSTEM Calculated T [place] 14 degrees MUSE SYSTEM INTERPRETATION Sinus bradycardia [...] dysrhythmias documented in this encounter Care Teams Supervisor Beater Room Relationship Specialty Start Date End Date Polo Pearce PA [address] [place] [address] PCP - General Internal Medicine 06/09/21 documented as of this encounter
--- OUTSIDE RECORDS SUMMARY | 2023-09-20 18:36 | XMS_ITS | Encounter Summary ---
Author Organization [facility] Address [facility] [place] [address] Care Team Providers Care Recreational Leader Name Role Phone Polo Pearce Primary Care Provider [phone] Encounter Details Date Type Department Care Team (Late st Contact Info) Description 02/16/2023 Telephone Cardiology at [address] [place] [address] Jaspreet Kinsey MD [facility] [place] [address] Social History Tobacco Use Types Packs/Day Years Used Date Smoking Tobacco: Never Smokeless Tobacco: Never Alcohol Use Standard Drinks/Week Comments Never 0 (1 standard drink = 0.6 oz pur e alcohol) [facility] Utilities Answer Date Recorded In the past 12 months has [employer], gas, oil, or water [employer] threatened to shut off services in your [...] in a assisted (including now)? No 02/10/2023 Sex and Gender [...] her problems. Please call her back @ [phone] documented in this encounter Plan of Treatment Upcoming Encounters Date Type Department Care Team (Late st Contact Info) Description 10/08/2023 8:30 AM EDT Tech [place] [address] Jose Cook 10/08/2023 9:30 AM EDT Office Visit Vascular Surgery at [place] [phone] MD [facility] [place] [address] 10/21/2023 10:30 AM EDT Appointment Nuclear Medicine at [address]1000 Mary Reyes [facility] [address] 10/21/2023 11:30 AM EDT Appointment Nuclear Medicine at [place] [phone] Mary Reyes [facility] [address] 10/21/2023 12:30 PM EDT Appointment Nuclear Medicine at [place] [phone] Mary Reyes [facility] [address] 10/21/2023 1:30 PM EDT Appointment [place] [address] Mary Reyes [facility] [address] 10/21/2023 2:30 PM EDT Appointment [place] [address] Mary Reyse APRN [facility] [place] [address] 10/26/2023 4:00 PM EDT Office Visit Cardiology at [address] [address] Jaspreet Kinsey MD [facility] [place] [address] 10/28/2023 9:00 AM EDT Office [place] [address] 10/29/2023 10:00 AM EDT Clinical Support [place] [address] 10/29/2023 10:15 AM EDT Procedure [place] [address] 11/01/2023 5:00 PM EDT Office [place] [address] Selene Browning, PhD [facility] [place] [address] 11/22/2023 4:40 PM EDT Office Visit Cardiology at [address] [phone] Porsha Mcdaniels MD [facility] [place] [address] 12/13/2023 10:00 AM EDT Clinical Support [place] [address]-[address] [facility] [place] [address] documented as of this encounter Visit Diagnoses Not on filedocumented in this encounter Care Teams Recreational Leader Relationship Specialty Start Date End Date Polo Pearce PA [address] [place] [address] PCP - General Internal Medicine 06/09/21 documented as of this encounter
--- OUTSIDE RECORDS SUMMARY | 2023-09-20 18:36 | XMS_ITS | Encounter Summary ---
[place] [address] Care Team Providers Care Air Compressor Mechanic Name Role Phone Polo Pearce Primary Care Provider [phone] Encounter Details Date Type Department Care Team (Late st Contact Info) Description 02/08/2023 [place] [phone] Unknown None Social History Tobacco Use Types Packs/Day Years Used Date Smoking Tobacco: Never Smokeless Tobacco: Never Alcohol Use Standard Drinks/Week Comments Never 0 (1 standard drink = 0.6 oz pur e alcohol) [facility] Utilities Answer Date Recorded In the [...] AM EDT Tech [place] [address]-1000 Jose Cook 10/08/2023 9:30 AM EDT Office [place] [address]-[address] MD [facility] [place] [address] 10/21/2023 10:30 AM EDT Appointment [place] [address] Mary Reyes APRN [facility] [place] [address] 10/21/2023 11:30 AM EDT Appointment [place] [address] Mary Reyes APRN [facility] [place] [address] 10/21/2023 12:30 PM EDT Appointment [place] [address] Mary Reyes APRN [facility] [place] [address] 10/21/2023 1:30 PM EDT Appointment [place] [address] Mary Reyes [facility] [place] [address] 10/21/2023 2:30 PM EDT Appointment [place] [address] Mary Reyes, [facility] [place] [address] 10/26/2023 4:00 PM EDT Office Visit Cardiology at [address] [phone] Jaspreet Kinsey MD [facility] [place] [address] 10/28/2023 9:00 AM EDT Office [place] [address] 10/29/2023 10:00 AM EDT Clinical [place] [address] 10/29/2023 10:15 AM EDT Procedure [place] [address] 11/01/2023 5:00 PM EDT Office [place] [address] Selene Browning, PhD [facility] [place] [address] 11/22/2023 4:40 PM EDT Office Visit Cardiology at [address] [address] Porsha Mcdaniels MD [facility] [place] [address] 12/13/2023 10:00 AM EDT Clinical [place] [address] [address]ero [address] [facility] [place] [address] documented as of this encounter Procedures Procedure Name Priority Date/Time Associated Diagnosis Comments ECHOCARDIOGRAM TRANSTHORACIC Routine 02/08/2023 11:40 PM EST documented in this encounter Results * Echocardiogram Transthoracic (02/08/2023 11:40 PM EST) Anatomical Region Laterality Modality Cardiac Other 02/08/2023 11:4 0 PM EST Narrative 02/10/2023 3:09 PM EST [address] [place] [address] ? Echocardiogram Report Name: LOIDA ROQUE ?Study [...] without a pericardial effusion. Procedure Limited - 87532. Suboptimal quality. There is normal sinus rhythm. [...] Note Willy Gómez MD - 02/10/2023 1 [place] [address] Echocardiogram Report Name: LOIDA ROQUE Study Date: [...] without a pericardial effusion. Procedure Limited - 38186. Suboptimal quality. There is normal sinus rhythm. [...] on filedocumented in this encounter Care Teams Air Compressor Mechanic Relationship Specialty Start Date End Date Polo Pearce PA [address] [place] [address] PCP - General Internal Medicine 06/09/21 documented as of this encounter
--- OUTSIDE RECORDS SUMMARY | 2023-09-20 18:36 | XMS_ITS | Encounter Summary ---
Author Organization [facility] [place] [address] Care Team Providers Care Snuff Grinder And Screener Name Role Phone Polo Pearce Primary Care Provider [phone] Reason for Visit * Auth/Cert (Routine) Specialty [...] THER/DX INTERVENT ELECTROPHYSIOLOGY PROCEDURE Jed Tovar MD [facility] [place] [address] [facility] Referral ID Status Reason Start Date Expiration Date Visits Re quested Visits Authorized [id number] 1 1 Encounter Details Date Type Department Care Team (Latest Contact Info) Description 04/01/2023 6:20 AM EST - 04/01/2023 4:00 PM EST Hospital [place] [address] Jed Tovar MD [facility] [place] [address] SVT (supraventricular tachycardia); PAF (paroxysmal atrial fibrillation) Discharge Disposition: Home Social History Tobacco Use Types Packs/Day Years Used Date Smoking Tobacco: Never Smokeless Tobacco: Never Alcohol Use Standard Drinks/Week Comments Never 0 (1 standard drink = 0.6 oz pur e alcohol) [facility] Utilities Answer Date Recorded In [...] Indira Roque Patient Age: 53 y.o. Language: Tajik Race: White Ethnicity: Not nor Admit date: [...] Cardiac Electrophysiology - Weekends and holidays call [phone]; ask for cigar packer and shader independent crop consultant. Discharge Diagnoses (Hospital Problems) and Secondary [...] the context of hospitalization at [facility] for NSTEMI. A rapidly conducted narrow complex [...] days. Refills: 0 fluticasone propionate 50 mcg/actuation Tate, Suspension Commonly known as: Flonase 1 spray [...] 3:00 PM Jaspreet Kinsey MD Cardiology at [place] Arrive at: [facility] [address] [phone] Discharge References/Attachments None documented in this encounter [...] as needed. fluticasone propionate (FLONASE) 50 mcg/actuation Tate, Suspension 1 spray by Each Nare route [...] in this encounter H&P Notes * Jed oTvar MD - 04/01/2023 7:21 AM EST EP PRE-PROCEDURE H&P Referring Provider: Jaspreet Kinsey MD [facility] [place] [address] Attending Provider: Jed Tovar MD Planned Procedure: EP study and SVT ablation Background and rationale for the procedure: Indira Roque is a 53 y.o. woman with paroxysmal atrial fibrillation, heart failure with preserved EF, and chronic angina with non-obstructive ASCVD but significant calcifications per coronary CTA. She has documented sustained narrow complex tachycardia on 06/13/2021 in the context of hospitalization at [facility] for NSTEMI. A rapidly conducted narrow complex [...] as needed. fluticasone propionate (FLONASE) 50 mcg/actuation Tate, Suspension 1 spray by Each Nare route [...] in agreement. Dr. Jed Tovar, electrophysiology attending ([id number]) documented in this encounter Procedure Notes * [...] jittery Break coverage by Luiza Peña RN [phone]. PACU D/C criteria met at 1300 1345 Hand off to ERWIN Gomez SDP documented in this encounter Miscellaneous Notes * Brief Op Note - Jed Tovar MD - 04/01/2023 11:07 AM EST Brief Operative Note Patient Name: Indira Roque : [id number] MR#: [id number] Case Date: 04/01/2023 Surgeon: Surgeon(s) and Role: [...] AM EDT Tech Visit Vascular Lab at [place] [phone] Jose Cook 10/08/2023 9:30 AM EDT Office Visit Vascular Surgery at [place] [phone] MD [facility] [place] [address] 10/21/2023 10:30 AM EDT Appointment Nuclear Medicine at [place] [phone] Mary Reyes [employer] [facility] [place] [address] 10/21/2023 11:30 AM EDT Appointment [place] [address] Mary Reyes [employer] [facility] [place] [address] 10/21/2023 12:30 PM EDT Appointment [place] [address] Mary Reyes [facility] [place] [address] 10/21/2023 1:30 PM EDT Appointment [place] [address] Mary Reyes [facility] [place] [address] 10/21/2023 2:30 PM EDT Appointment [place] [address] Mary Reyes, [facility] [place] [address] 10/26/2023 4:00 PM EDT Office Visit Cardiology at [address] [phone] Jaspreet Kinsey MD [facility] [place] [address] 10/28/2023 9:00 AM EDT Office Visit [place] [address] 10/29/2023 10:00 AM EDT Clinical Support [place] [address] 10/29/2023 10:15 AM EDT Procedure visit [place] [address] 11/01/2023 5:00 PM EDT Office [place] [phone] Selene Browning, PhD [facility] [place] [address] 11/22/2023 4:40 PM EDT Office Visit Cardiology at [address] [phone] Porsha Mcdaniels MD [facility] [address] 12/13/2023 10:00 AM EDT Clinical [place] [address] [facility] [place] [address] documented as of this encounter Procedures Procedure [...] (Bezet) 519 ms MUSE SYSTEM Calculated P [place] 44 degrees MUSE SYSTEM Calculated R [place] 41 degrees MUSE SYSTEM Calculated T [place] 36 degrees MUSE SYSTEM INTERPRETATION Normal sinus [...] not included. ELECTROPHYSIOLOGY STUDY AND SVT ABLATION Linen Controller: Jed Tovar MD Fellow: Jaspreet Grimm MD Referring: Jaspreet Kinsey MD Patient History: Indira Roque is a 53 y.o. woman with one episode of paroxysmal atrial fibrillation, heart failure with preserved EF, and chronic angina with non-obstructive ASCVD but significant calcifications per coronary CTA. She has documented sustained narrow complex tachycardia on 06/13/2021 in the context of hospitalization at [facility] for NSTEMI. A rapidly conducted narrow complex [...] Intervals (ms) Interval Name Interval length (milliseconds) HI 260 QRS 97 QT 531 AH 159 HV 47 Refractory Periods Atrial ERP 700/300 AV Makayla Conduction AV Wenckebach 360 ms Retrograde Wenckebach 470 ms Medication Summary (drug, amount, route) Isoproterenol at 2-4 mcg/kg/min Radiology Summary Total Fluoro time (min) 1.4 DAP (cGycm2) 53 Findings: 1. The baseline EKG revealed sinus rhythm with prolonged HI and long AH, but otherwise normal intervals [...] with Dr. Tovar in 1-3 ??months at [facility] 5. 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 Procedures performed: SVT ablation (cpt 17541); induce post IV drug (cpt 05758-75-40) I have read, edited and approve of [...] (Bezet) 522 ms MUSE SYSTEM Calculated P [place] 50 degrees MUSE SYSTEM Calculated R [place] 69 degrees MUSE SYSTEM Calculated T [place] 16 degrees MUSE SYSTEM INTERPRETATION Sinus bradycardia Lateral infarct , age undetermined Prolonged QT Abnormal ECG When compared with ECG of 22-MAR-2023 16:45, (unconfirmed) T wave inversion no longer evident in Anterior leads QT has lengthened I personally reviewed the tracing and edited the fellows interpretation Confirmed by fellow MD Nas, Max ([id number]) on 04/01/2023 3:35:42 PM Confirmed by MD NAILA, KAUSHIK () on 04/02/2023 8:28:26 AM MUSE SYSTEM 04/01/2023 7:31 AM EST 04/02/2023 8:28 AM EST Jed Tovar MD ECG ORDERABLES MUSE SYSTEM * Differential, Automated (04/01/2023 7:20 AM EST) Pathologist [facility] Emergency Department Neutrophils % 53.2 % [facility] Neutr Abs (ANC) 3.51 1.70 - 6.10 x10(3)/[facility] Lymphocytes % 32.4 % [facility] Lymphocytes Abs 2.1 0.9 - 3.2 x10(3)/[facility] Monocytes % 8.7 % [facility] Monocyte Abs 0.6 0.3 - 0.9 x10(3)/[facility] Eosinophils % 4.6 % [facility] Eosinophils Abs 0.3 0.0 - 0.4 x10(3)/[facility] Basophils % 0.8 % [facility] Basophils Abs 0.0 0.0 - 0.1 x10(3)/[facility] Immature Gran % 0.30 % [facility] [...] 0.04 x10(3)/[facility] Blood 04/01/2023 7:20 AM EST 04/01/2023 7:33 AM EST Narrative Resulting Agency Comment Spec In Lab Jed Tovar MD HEMATOLOGY ORDERABLE S [facility] [place] [address] * (ABNORMAL) Hemogram (04/01/2023 7:20 AM EST) WBC 6.6 4.0 - 9.5 x10(3)/[facility] RBC 4.56 4.00 - 5.21 x10(6)/[facility] Hemoglobin 14.1 11.7 - 15.5 g/dL [facility] Hematocrit 43.1 35.7 - 45.8 % [facility] MCV 94.5(H) 82.6 - 94.4 fL [facility] MCH 30.9 27.1 - 32.0 pg [facility] MCHC 32.7 31.7 - 35.0 g/dL [facility] Platelets 229 145 - 357 x10(3)/[facility] RDWSD 44.7 37.0 - 46.0 fL [facility] RDWCV 12.7 11.5 - 14.1 % [facility] MPV 11.7 7.6 - 12.9 fL [facility] nRBC % Auto 0.0 % [facility] nRBC Abs Auto 0.000 0.000 - 0.000 x10(3)/mcL [facility] Blood 04/01/2023 7:20 AM EST 04/01/2023 7:33 AM EST Narrative Resulting Agency Comment Spec In Lab Jed Tovar MD HEMATOLOGY ORDERABLE S [facility] [place] [address] * (ABNORMAL) BMP w/fasting Glucose (04/01/2023 7:20 AM EST) Glucose Fasting 99 65 - 99 mg/dL [facility] [...] of Diabetes Mellitus, Position Statement from the [place] [employer]. ??Diabetes Care, Volume 33, Supplement 1, Mar 2009 BUN 22(H) 8 - 18 mg/dL [facility] Creatinine 1.10 0.70 - 1.20 mg/dL [facility] [...] questions. Chloride 108(H) 98 - 107 mmol/L [facility] CO2 22 22 - 31 mmol/L [facility] Anion Gap 9 5 - 15 mmol/L [facility] Calcium 9.6 8.5 - 10.5 mg/dL [facility] Estimated GFR 60 >=60 mL/min/1. 73 m?? [facility] [...] In Lab Jed Tovar MD CHEMISTRY ORDERABLES [facility] [place] [address] documented in this encounter Visit Diagnoses Diagnosis [...] Routine documented in this encounter Care Teams Snuff Grinder And Screener Relationship Specialty Start Date End Date Polo Pearce PA [address] [place] [address] PCP - General Internal Medicine 06/09/21 documented as of this encounter
--- OUTSIDE RECORDS SUMMARY | 2023-09-20 18:36 | XMS_ITS | Encounter Summary ---
Author Organization [facility] Address [facility] [place] [address] Care Team Providers Care It Telecom Technician Name Role Phone Polo Pearce Primary Care Provider [phone] Reason for Visit * Reason Comments Palpitations SVT Encounter Details Date Type Department Care Team (Late st Contact Info) Description 03/22/2023 4:20 PM EST Office Visit Cardiology at [address] [address] Jaspreet Kinsey MD [facility] [place] [address] SVT (supraventricular tachycardia); Pulmonary embolism without acute cor pulmonale, unspecified chronicity, unspecified pulmonary embolism type; Paroxysmal atrial fibrillation; Heart failure with preserved ejection fraction, unspecified HF chronicity Social History Tobacco Use Types Packs/Day Years Used Date Smoking Tobacco: Never Smokeless Tobacco: Never Alcohol Use Standard Drinks/Week Comments Never 0 (1 standard drink = 0.6 oz pur e alcohol) [facility] Utilities Answer Date Recorded In the past 12 months has [employer] electric, gas, oil, or water [employer] threatened to shut off services in your [...] slept in a intermediate (including now)? No 02/10/2023 Sex and Gender [...] in early February; she was transferred to [facility]. At that interface, amlodipine was discontinued due to mild peripheral edema, and bumex was changed to torsemide ( the latter for unclear reason). Ranexa was also initiated, as was aldactone; the latter to preserve eukalemia. The former was discontinued due to fogginess/dizziness, with quick resolution of symptoms. Since then, she has been doing well. She has been participating in cardiac rehab at [facility] and finds herself making gains in exertional [...] 30 DAYS fluticasone propionate (FLONASE) 50 mcg/actuation [place], Suspension 1 spray, Each Nare, DAILY gabapentin [...] upper lobe. Started on eliquis 08/2022 TTE ([facility]): normal bi-v s/f. No significant VHD (HFpEF) heart failure with preserved ejection fraction 05/2021: subacute, presented to [facility] with RUQ pain, weight gain, [...] AM EDT Tech [place] [address] Jose Cook 10/08/2023 9:30 AM EDT Office [place] [phone] MD [facility] [place] [address] 10/21/2023 10:30 AM EDT Appointment [place] [address] Mary Reyes [facility] [place] [address] 10/21/2023 11:30 AM EDT Appointment Nuclear Medicine at [place] [phone] Mary Reyes [facility] [place] [address] 10/21/2023 12:30 PM EDT Appointment Nuclear Medicine at [address] Mary Reyes [facility] [place] [address] 10/21/2023 1:30 PM EDT Appointment [place] [address] Mary Reyes [facility] [place] [address] 10/21/2023 2:30 PM EDT Appointment [place] [address] Mary Reyes [facility] [place] [address] 10/26/2023 4:00 PM EDT Office Visit Cardiology at [address] [phone] Jaspreet Kinsey MD [facility] [place] [address] 10/28/2023 9:00 AM EDT Office [place] [address] 10/29/2023 10:00 AM EDT Clinical Support [place] [address] 10/29/2023 10:15 AM EDT Procedure [place] [address] 11/01/2023 5:00 PM EDT Office Visit Gastroenterology at [place] [phone] Selene Browning, PhD [facility] [place] [address] 11/22/2023 4:40 PM EDT Office Visit Cardiology at [address] [address] Porsha Mcdaniels MD [facility] [place] [address] 12/13/2023 10:00 AM EDT Clinical [place] [address] Lucero Romero, RD [facility] [place] [address] documented as of this encounter Visit Diagnoses Diagnosis SVT (supraventricular tachycardia) Other specified cardiac dysrhythmias Pulmonary embolism without acute cor pulmonale, unspecified chronicity, unspecified pulmonary embolism type Paroxysmal atrial fibrillation Atrial fibrillation Heart failure with preserved ejection fraction, unspecified HF chronicity documented in this encounter Care Teams It Telecom Technician Relationship Specialty Start Date End Date Polo Pearce PA [address] [place] [id number] PCP - General Internal Medicine 06/09/21 documented as of this encounter
--- OUTSIDE RECORDS SUMMARY | 2023-09-20 18:36 | XMS_ITS | Encounter Summary ---
Author Organization [facility] [place] [address] Care Team Providers Care Artists' Booking Representative Name Role Phone Polo Pearce Primary Care Provider [phone] Encounter Details Date Type Department Care Team (Late st Contact Info) Description 03/10/2023 Telephone Cardiology at [address] [place] [address] Nilda Mayes, RN Social History Tobacco Use Types Packs/Day Years Used Date Smoking Tobacco: Never Smokeless Tobacco: Never Alcohol Use Standard Drinks/Week Comments Never 0 (1 standard drink = 0.6 oz pur e alcohol) [facility] Utilities Answer Date Recorded In the past 12 months has e electric, gas, oil, or water [employer] threatened to shut off services in your [...] slept in a retirement (including now)? No 02/10/2023 Sex and Gender [...] AM EDT Tech Visit [place] [phone] Jose Cook 10/08/2023 9:30 AM EDT Office [place] [address] MD [facility] [place] [address] 10/21/2023 10:30 AM EDT Appointment [place] [address] Mary Reyes APRN [facility] [place] [address] 10/21/2023 11:30 AM EDT Appointment [place] [address] Mary Reyes [facility] [place] [address] 10/21/2023 12:30 PM EDT Appointment [place] [address] Mary Reyes [facility] [place] [address] 10/21/2023 1:30 PM EDT Appointment [place] [address] Mary Reyes [facility] [place] [address] 10/21/2023 2:30 PM EDT Appointment [place] [address] Mary Reyes [facility] [place] [address] 10/26/2023 4:00 PM EDT Office Visit Cardiology at [address] [place] [phone] Jaspreet Kisney MD [facility] [address] 10/28/2023 9:00 AM EDT Office Visit [place] [address] 10/29/2023 10:00 AM EDT Clinical Support [place] [address] 10/29/2023 10:15 AM EDT Procedure visit [place] [address] 11/01/2023 5:00 PM EDT Office Visit Gastroenterology at [place] [phone] Selene Browning, PhD [facility] [place] [address] 11/22/2023 4:40 PM EDT Office Visit Cardiology at [address] [phone] Porsha Mcdaniels MD [facility] [place] [address] 12/13/2023 10:00 AM EDT Clinical Support [place] [phone] Lucero Romero, [facility] [place] [address] documented as of this encounter Visit Diagnoses Not on filedocumented in this encounter Care Teams Artists' Booking Representative Relationship Specialty Start Date End Date Polo Pearce PA [address] [place] [address] PCP - General Internal Medicine 06/09/21 documented as of this encounter
--- OUTSIDE RECORDS SUMMARY | 2023-09-20 18:36 | XMS_ITS | Encounter Summary ---
Author Organization [facility] [address] Care Team Providers Care Director Cardiology Name Role Phone Polo Pearce Primary Care Provider [phone] Reason for Referral * Consultation (Routine) - Closed Specialty Diagnoses / Procedures Referred By Jayant harris Referred To Contact Cardiology Diagnoses Non-ST elevation myocardial infarction (NSTEMI) Itz Bhardwaj MD [facility] [place] [address] Cardiac Rehab, [address] [place] [address] Referral ID Status Reason Start Date Expiration Date V isits Requested Visits Authorized [id number] Closed Consult, Test & Treat Non PCP 02/18/2023 08/17/2023 36 36 Encounter Details Date Type Department Care Team (Late st Contact Info) Description 02/18/2023 [place] [address] Jazmin Levine RN Non-ST elevation myocardial infarction (NSTEMI) Social History Tobacco Use Types Packs/Day Years Used Date Smoking Tobacco: Never Smokeless Tobacco: Never Alcohol Use Standard Drinks/Week Comments Never 0 (1 standard drink = 0.6 oz pur e alcohol) [facility] Utilities Answer Date Recorded In the [...] AM EDT Tech [place] [address] Jose Cook 10/08/2023 9:30 AM EDT Office [place] [phone] MD [facility] [place] [address] 10/21/2023 10:30 AM EDT Appointment [place] [address] Mary Reyes [facility] [place] [address] 10/21/2023 11:30 AM EDT Appointment [place] [address] Mary Reyes [facility] [place] [address] 10/21/2023 12:30 PM EDT Appointment [place] [address] Mary Reyes [facility] [place] [address] 10/21/2023 1:30 PM EDT Appointment [place] [address] Mary Reyes [facility] [place] [address] 10/21/2023 2:30 PM EDT Appointment [place] [address] Mary Reyes [facility] [place] [address] 10/26/2023 4:00 PM EDT Office Visit Cardiology at [address] [phone] Jaspreet Kinsey MD [facility] [place] [address] 10/28/2023 9:00 AM EDT Office [place] [address] 10/29/2023 10:00 AM EDT Clinical [place] [address] 10/29/2023 10:15 AM EDT Procedure [place] [address] 11/01/2023 5:00 PM EDT Office Visit Gastroenterology at [place] [phone] Selene Browning, PhD [facility] [place] [address] 11/22/2023 4:40 PM EDT Office Visit Cardiology at [place] [phone] Porsha Mcdaniels MD [facility] [place] [address] 12/13/2023 10:00 AM EDT Clinical Support Gastroenterology at [address] Lucero Romero, RD [facility] [place] [address] Scheduled Referrals Name Type Priority Associated Diagnoses Orde r Schedule Referral to Cardiac Rehab Outpatient Referral Routine Non-ST elevation myocardial infarction (NSTEMI) Ordered: 02/18/2023 documented as of this encounter Visit Diagnoses Diagnosis Non-ST elevation myocardial infarction (NSTEMI) Acute myocardial infarction, subendocardial infarction, episode of care unspecified documented in this encounter Care Teams Director Cardiology Relationship Specialty Start Date End Date Polo Pearce PA [address] [place] [address] PCP - General Internal Medicine 06/09/21 documented as of this encounter
--- OUTSIDE RECORDS SUMMARY | 2023-09-20 18:36 | XMS_ITS | Encounter Summary ---
Author Organization [facility] [place] [address] Care Team Providers Care Rug Hooker Name Role Phone Polo Pearce Primary Care Provider [phone] Reason for Visit * Auth/Cert (Routine) Specialty [...] THER/DX INTERVENT ELECTROPHYSIOLOGY PROCEDURE Jed Tovar MD [facility] [place] [address] [facility] Referral ID Status Reason Start Date Expiration Date Visits Re quested Visits Authorized [id number] 1 1 Encounter Details Date Type Department Care Team (Late st Contact Info) Description 04/01/2023 7:30 AM EST - 04/01/2023 12:00 PM EST Surgery Electrophysiology Lab at [facility] [place] [address] Jed Tovar MD [facility] [place] [address] ELECTROPHYSIOLOGY PROCEDURE Social History Tobacco Use Types [...] in a long term (including now)? No 02/10/2023 Sex and Gender [...] Indira Roque Patient Age: 53 y.o. Language: Chilean Race: White Ethnicity: Not nor Admit date: [...] Cardiac Electrophysiology - Weekends and holidays call [phone]; ask for astronomy department chair sewing machine operator floorperson. Discharge Diagnoses (Hospital Problems) and Secondary Diagnoses [...] 06/13/2021 in the context of hospitalization at [facility] for NSTEMI. A rapidly conducted narrow complex [...] days. Refills: 0 fluticasone propionate 50 mcg/actuation [place], Suspension Commonly known as: Flonase 1 spray [...] 3:00 PM Jaspreet Kinsey MD Cardiology at [place] Arrive at: [facility] [address] [phone] Discharge References/Attachments None documented in this encounter [...] as needed. fluticasone propionate (FLONASE) 50 mcg/actuation [place], Suspension 1 spray by Each Nare route [...] PRE-PROCEDURE H&P Referring Provider: Jaspreet Kinsey MD [facility] [place] [address] Attending Provider: Jed Tovar MD Planned Procedure: EP study and SVT ablation Background and rationale for the procedure: Indira Roque is a 53 y.o. woman with paroxysmal atrial fibrillation, heart failure with preserved EF, and chronic angina with non-obstructive ASCVD but significant calcifications per coronary CTA. She has documented sustained narrow complex tachycardia on 06/13/2021 in the context of hospitalization at [facility] for NSTEMI. A rapidly conducted narrow complex [...] as needed. fluticasone propionate (FLONASE) 50 mcg/actuation [place], Suspension 1 spray by Each Nare route [...] in agreement. Dr. Jed Tovar, electrophysiology attending ([id number]) documented in this encounter Procedure Notes * [...] jittery Break coverage by Luiza Peña RN [phone]. PACU D/C criteria met at 1300 1345 Hand off to ERWIN Gomez SDP documented in this encounter Miscellaneous Notes * Brief Op Note - Jed Tovar MD - 04/01/2023 11:07 AM EST Brief Operative Note Patient Name: Indira Roque : [id number] MR#: [id number] Case Date: 04/01/2023 Surgeon: Surgeon(s) and Role: [...] AM EDT Tech [place] [address] Jose Cook 10/08/2023 9:30 AM EDT Office Visit [place] [phone] MD [facility] [place] [address] 10/21/2023 10:30 AM EDT Appointment [place] [address]-1000 Mary Reyes [facility] [place] [address] 10/21/2023 11:30 AM EDT Appointment [place] [address]-1000 Mary Reyes [facility] [place] [address] 10/21/2023 12:30 PM EDT Appointment [place] [address] Mary Reyes, [facility] [place] [address] 10/21/2023 1:30 PM EDT Appointment [place] [address] Mary Reyes, [facility] [place] [address] 10/21/2023 2:30 PM EDT Appointment [place] [address] Mary Reyes, [facility] [place] [address] 10/26/2023 4:00 PM EDT Office Visit Cardiology at [address] [phone] Jaspreet Kinsey MD [facility] [place] [address] 10/28/2023 9:00 AM EDT Office [place] [address] 10/29/2023 10:00 AM EDT Clinical Support [place] [address] 10/29/2023 10:15 AM EDT Procedure [place] [address] 11/01/2023 5:00 PM EDT Office Visit [place] [phone] Selene Browning, PhD [facility] [address] RAYNE [place] [id number] 11/22/2023 4:40 PM EDT Office Visit Cardiology at [address] [address] Porsha Mcdaniels MD [facility] [address] 12/13/2023 10:00 AM EDT Clinical Support [place] [address] [facility] [place] [address] documented as of this encounter [...] (Bezet) 519 ms MUSE SYSTEM Calculated P [place] 44 degrees MUSE SYSTEM Calculated R [place] 41 degrees MUSE SYSTEM Calculated T [place] 36 degrees MUSE SYSTEM INTERPRETATION Normal sinus [...] not included. ELECTROPHYSIOLOGY STUDY AND SVT ABLATION Receptionist Airline Lounge: Jed Tovar MD Fellow: Jaspreet Grimm MD Referring: Jaspreet Kinsey MD Patient History: Indira Roque is a 53 y.o. woman with one episode of paroxysmal atrial fibrillation, heart failure with preserved EF, and chronic angina with non-obstructive ASCVD but significant calcifications per coronary CTA. She has documented sustained narrow complex tachycardia on 06/13/2021 in the context of hospitalization at [facility] for NSTEMI. A rapidly conducted narrow complex [...] Intervals (ms) Interval Name Interval length (milliseconds) VT 260 QRS 97 QT 531 AH 159 HV 47 Refractory Periods Atrial ERP 700/300 AV Makayla Conduction AV Wenckebach 360 ms Retrograde Wenckebach 470 ms Medication Summary (drug, amount, route) Isoproterenol at 2-4 mcg/kg/min Radiology Summary Total Fluoro time (min) 1.4 DAP (cGycm2) 53 Findings: 1. The baseline EKG revealed sinus rhythm with prolonged VT and long AH, but otherwise normal intervals [...] with Dr. Tovar in 1-3 ??months at [facility] 5. 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 Procedures performed: SVT ablation (cpt 30318); induce post IV drug (cpt 24785-47-34) I have read, edited and approve of this report: Jed Tovar MD S Cardiac Electrophysiology 04/03/2023 11:10 AM eJd Tovar MD EP PROCEDURE ORDERAB LES * EKG 12 Lead (04/01/2023 7:31 AM EST) Ventricular rate 59 BPM MUSE SYSTEM Atrial Rate 59 BPM MUSE SYSTEM P-R Interval 190 ms MUSE SYSTEM QRS Duration 84 ms MUSE SYSTEM Q-T Interval 528 ms MUSE SYSTEM QTC Calculated (Bezet) 522 ms MUSE SYSTEM Calculated P [place] 50 degrees MUSE SYSTEM Calculated R [place] 69 degrees MUSE SYSTEM Calculated T [place] 16 degrees MUSE SYSTEM INTERPRETATION Sinus bradycardia Lateral infarct , age undetermined Prolonged QT Abnormal ECG When compared with ECG of 22-MAR-2023 16:45, (unconfirmed) T wave inversion no longer evident in Anterior leads QT has lengthened I personally reviewed the tracing and edited the fellows interpretation Confirmed by fellow MD Nas, Max ([id number]) on 04/01/2023 3:35:42 PM Confirmed by MD NAILA, KAUSHIK ([id number]) on 04/02/2023 8:28:26 AM MUSE SYSTEM 04/01/2023 7:31 AM EST 04/02/2023 8:28 AM EST Jed Tovar MD ECG ORDERABLES MUSE SYSTEM * Differential, Automated (04/01/2023 7:20 AM EST) Neutrophils % 53.2 % [facility] Neutr Abs (ANC) 3.51 1.70 - 6.10 x10(3)/[facility] Lymphocytes % 32.4 % [facility] Lymphocytes Abs 2.1 0.9 - 3.2 x10(3)/[facility] Monocytes % 8.7 % [facility] Monocyte Abs 0.6 0.3 - 0.9 x10(3)/[facility] Eosinophils % 4.6 % [facility] Eosinophils Abs 0.3 0.0 - 0.4 x10(3)/[facility] Basophils % 0.8 % [facility] Basophils Abs 0.0 0.0 - 0.1 x10(3)/[facility] Immature Gran % 0.30 % [facility] Comment: Immature granulocytes(IG's)percentage and absolute count will include metamyelocytes, myelocytes, and promyelocytes. Blood smears from CBCs yielding IG's will be scanned manually for concordance. If this scan disagrees with the automated IG or if promyelocytes are noted, a manual differential will be performed. Shonda Gran Abs 0.02 0.00 - 0.04 x10(3)/[facility] Blood 04/01/2023 7:20 AM EST 04/01/2023 7:33 AM EST Narrative Resulting Agency Comment Spec In Lab Jed Tovar MD HEMATOLOGY ORDERABLE S [facility] [place] [address] * (ABNORMAL) Hemogram (04/01/2023 7:20 AM EST) WBC 6.6 4.0 - 9.5 x10(3)/[facility] RBC 4.56 4.00 - 5.21 x10(6)/[facility] Hemoglobin 14.1 11.7 - 15.5 g/dL [facility] Hematocrit 43.1 35.7 - 45.8 % [facility] MCV 94.5(H) 82.6 - 94.4 fL [facility] MCH 30.9 27.1 - 32.0 pg [facility] MCHC 32.7 31.7 - 35.0 g/dL [facility] Platelets 229 145 - 357 x10(3)/[facility] RDWSD 44.7 37.0 - 46.0 [facility] RDWCV 12.7 11.5 - 14.1 % [facility] MPV 11.7 7.6 - 12.9 [facility] nRBC % Auto 0.0 % [facility] nRBC Abs Auto 0.000 0.000 - 0.000 x10(3)/[facility] Blood 04/01/2023 7:20 AM EST 04/01/2023 7:33 AM EST Narrative Resulting Agency Comment Spec In Lab Jed Tovar MD HEMATOLOGY ORDERABLE S [facility] [place] [address] * (ABNORMAL) BMP w/fasting Glucose (04/01/2023 7:20 AM EST) Glucose Fasting 99 65 - 99 mg/dL [facility] Comment: ?Fasting* Glucose Interpretive [...] of Diabetes Mellitus, Position Statement from the [place] Diabetes Association. ??Diabetes Care, Volume 33, Supplement 1, Mar 2009 BUN 22(H) 8 - 18 mg/dL [facility] Creatinine 1.10 0.70 - 1.20 mg/dL [facility] Sodium 139 135 - 145 mmol/L [facility] [...] questions. Chloride 108(H) 98 - 107 mmol/L [facility] CO2 22 22 - 31 mmol/L [facility] Anion Gap 9 5 - 15 mmol/L [facility] Calcium 9.6 8.5 - 10.5 mg/dL [facility] Estimated GFR 60 >=60 mL/min/1. 73 m?? [facility] [...] Tovar MD CHEMISTRY ORDERABLES Performing Organization Address City/State/[facility] Co de Phone Number [facility] [place] [address] documented in this encounter Visit Diagnoses Diagnosis [...] Routine documented in this encounter Care Teams Rug Hooker Relationship Specialty Start Date End Date Polo Pearce PA [address] [place] [address] PCP - General Internal Medicine 06/09/21 documented as of this encounter
--- OUTSIDE RECORDS SUMMARY | 2023-09-20 18:36 | XMS_ITS | Encounter Summary ---
Author Organization [facility] [place] [address] Care Team Providers Care Renal Social Worker Name Role Phone Polo Pearce Primary Care Provider [phone] Reason for Visit * Auth/Cert (Routine) Specialty [...] INTERVENT ELECTROPHYSIOLOGY PROCEDURE Jed Tovar MD [facility] [place] [address] [facility] Referral ID Status Reason Start Date Expiration Date Visits Re quested Visits Authorized [id number] 1 1 Encounter Details Date Type Department Care Team (Late st Contact Info) Description 04/01/2023 7:39 AM EST Anesthesia Event [place] [phone] eMrlin Lozoya MD [facility] ANESTHESIOLOG[place] [address] Anesthesia Record Procedure Summary Procedure Name Responsible [...] Removal Time: 11104/01/23 0750 by Jaspreet Perry, ELECTRICAL APPLIANCE REPAIRER 04/01/23 1119 by Merlin Lozoya MD PIV 04/01/23; 0754; 18 gauge; dorsal arch vein (top of hand), right; Anatomical Landmarks; tanja; no longer indicated; 04/01/23; 1551 04/01/23 0754 by Jaspreet Perry, ELECTRICAL APPLIANCE REPAIRER 04/01/23 1551 by Gianna Bland RN LDA Cath/EP Sheath 04/01/23; 0823; 6.5 Serbian (Fr); Left, Anterior; Femoral; Venous 04/01/23 0823 by Mary Herman RN 04/01/23 1056 by Mary Herman RN LDA Cath/EP Sheath 04/01/23; 0825; 6.5 Serbian (Fr); Left, Anterior; Femoral; Venous 04/01/23 0825 by Mary Herman RN 04/01/23 1057 by Mary Herman RN LDA Cath/EP Sheath 04/01/23; 0825; 6.5 Serbian (Fr); Left, Anterior; Femoral; Venous 04/01/23 0825 by Mary Herman RN 04/01/23 1057 by Mary Herman RN LDA Cath/EP Sheath 04/01/23; 0827; 6.5 Serbian (Fr); Right, Anterior; Femoral; Venous 04/01/23 0827 by Mary Herman RN 04/01/23 1057 by Mary Herman RN LDA Cath/EP Sheath 04/01/23; 0833; 5.5 Serbian (Fr); Right, Anterior; Femoral; Venous 04/01/23 0833 [...] Procedure Summary Date: 04/01/23 Room / Location: [facility] B-LAB ROOM 4 / [facility] Anesthesia Start: 738 Anesthesia Stop: 1130 Procedure: ELECTROPHYSIOLOGY PROCEDURE Diagnosis: SVT (supraventricular tachycardia) (SVT (supraventricular tachycardia) [I47.10]) Providers: Jed Tovar MD Responsible Provider: Merlin Lozoya MD Anesthesia Type: general ASA Status: 3 All Anesthesia Providers: Anesthesiologist: Merlin Lozoya MD ELECTRICAL APPLIANCE REPAIRER: Jaspreet Prery CRNA Vitals Value Taken Time BP 104/58 04/01/23 1345 Temp 36.4 ??C (97.5 ??F) 04/01/23 1315 Pulse 66 04/01/23 1346 Resp 14 04/01/23 1346 SpO2 96 % 04/01/23 1346 Pain Level Vitals shown include unfiled device data. Patient Location: PACU/[facility] Level of Consciousness: Awake and Alert Pain [...] risks discussed with patient. Plan discussed with ELECTRICAL APPLIANCE REPAIRER. Anesthesia Screening documented in this encounter Plan of Treatment Upcoming Encounters Date Type Department Care Team (Late st Contact Info) Description 10/08/2023 8:30 AM EDT Tech Visit Vascular Lab at [place] [phone] Jose Cook 10/08/2023 9:30 AM EDT Office [place] [address] MD [facility] [place] [address] 10/21/2023 10:30 AM EDT Appointment Nuclear Medicine at [place] [phone] Mary Reyes [facility] [place] [address] 10/21/2023 11:30 AM EDT Appointment [place] [address] Mary Reyes [facility] [place] [address] 10/21/2023 12:30 PM EDT Appointment [place] [address] Mary Reyes [facility] [place] [address] 10/21/2023 1:30 PM EDT Appointment [place] [address] Mary Reyes [facility] [place] [address] 10/21/2023 2:30 PM EDT Appointment [place] [address]-1000 Mary Reyes APRN [facility] [place] [address] 10/26/2023 4:00 PM EDT Office Visit Cardiology at [address] [phone] Jaspreet Kinsey MD [facility] [place] [address] 10/28/2023 9:00 AM EDT Office [place] [address] 10/29/2023 10:00 AM EDT Clinical [place] [address] 10/29/2023 10:15 AM EDT Procedure [place] [address] 11/01/2023 5:00 PM EDT Office Visit Gastroenterology at [place] [phone] Selene Browning, PhD [facility] [place] [address] 11/22/2023 4:40 PM EDT Office Visit Cardiology at [place] [phone] Porsha Mcdaniels MD [facility] [place] [address] 12/13/2023 10:00 AM EDT Clinical Support [place] [address]-[address] [facility] [place] [address] documented as of this encounter Visit Diagnoses [...] mg documented in this encounter Care Teams Renal Social Worker Relationship Specialty Start Date End Date Polo Pearce PA [address] [place] [address] PCP - General Internal Medicine 06/09/21 documented as of this encounter
--- OUTSIDE RECORDS SUMMARY | 2023-09-20 18:36 | XMS_ITS | Encounter Summary ---
Author Organization [facility] Address [facility] [place] [address] Care Team Providers Care Design Engineering Manager Name Role Phone Polo Pearce Primary Care Provider [phone] Reason for Visit * Reason Comments Congestive Heart Failure HFpEF Atrial Fibrillation Encounter Details Date Type Department Care Team (Late st Contact Info) Description 11/17/2022 9:00 AM EDT Office Visit Cardiology at [address] [address] Jaspreet Kinsey MD [facility] [place] [address] Paroxysmal atrial fibrillation; Heart failure with preserved [...] In the interim, she was seen at [facility] and whilst having an episode [...] 30 DAYS fluticasone propionate (FLONASE) 50 mcg/actuation [place], Suspension 1 spray, Each Nare, DAILY gabapentin [...] upper lobe. Started on eliquis 08/2022 TTE ([facility]): normal bi-v s/f. No significant VHD (HFpEF) heart failure with preserved ejection fraction 05/2021: subacute, presented to [facility] with RUQ pain, weight [...] AM EDT Tech Visit [place] [address] Jose Cook 10/08/2023 9:30 AM EDT Office Visit V[place] [phone] MD [facility] [place] [address] 10/21/2023 10:30 AM EDT Appointment [place] [phone] Mary Reyes APRN [facility] [place] [address] 10/21/2023 11:30 AM EDT Appointment [place] [address] Mary Reyes, [facility] [address] [place] [address] 10/21/2023 12:30 PM EDT Appointment [place] [address] Mary Reyes, [address] [place] [address] 10/21/2023 1:30 PM EDT Appointment [place] [address] Mary Reyes, [address] [place] [address] 10/21/2023 2:30 PM EDT Appointment [place] [address] Mary Reyes, [address] [place] [address] 10/26/2023 4:00 PM EDT Office Visit Cardiology at [address] [phone] Jaspreet Kinsey MD [facility] [place] [address] 10/28/2023 9:00 AM EDT Office Visit [place] [address] 10/29/2023 10:00 AM EDT Clinical Support [place] [address] 10/29/2023 10:15 AM EDT Procedure visit [place] [address] 11/01/2023 5:00 PM EDT Office Visit Gastroenterology at [address] Selene Browning, PhD [facility] [place] [address] 11/22/2023 4:40 PM EDT Office Visit Cardiology at [address]1000 Porsha Mcdaniels MD [facility] [place] [address] 12/13/2023 10:00 AM EDT Clinical Support Gastroenterology at [place] [phone] [facility] [place] [address] documented as of this encounter Visit Diagnoses Diagnosis Paroxysmal atrial fibrillation Atrial fibrillation Heart failure with preserved ejection fraction, unspecified HF chronicity Pulmonary embolism without acute cor pulmonale, unspecified chronicity, unspecified pulmonary embolism type Chronic heart failure with preserved ejection fraction documented in this encounter Care Teams Design Engineering Manager Relationship Specialty Start Date End Date Polo Pearce PA [address] [place] [address] PCP - General Internal Medicine 06/09/21 documented as of this encounter
--- OUTSIDE RECORDS SUMMARY | 2023-09-20 18:36 | XMS_ITS | Encounter Summary ---
[place] [address] Care Team Providers Care Grinder Set Up Operator Universal Name Role Phone Polo Pearce Primary Care Provider [phone] Encounter Details Date Type Department Care Team (Late st Contact Info) Description 10/20/2022 Telephone Cardiology at [address] [address] Gianna Day, RN Social History [...] AM EDT Tech [place] [address] Jose Cook 10/08/2023 9:30 AM EDT Office Visit [place] [address] MD [facility] [place] [place] [address] 10/21/2023 10:30 AM EDT Appointment Nuclear Medicine at [address]1000 Mary Reyes, [facility] [place] [address] 10/21/2023 11:30 AM EDT Appointment Nuclear Medicine at [address]1000 Mary Reyes [facility] [place] [address] 10/21/2023 12:30 PM EDT Appointment Nuclear Medicine at [place] [phone] Mary Reyes [facility] [place] [address] 10/21/2023 1:30 PM EDT Appointment Nuclear Medicine at [place] [phone] Mary Reyes [facility] [address] 10/21/2023 2:30 PM EDT Appointment [place] [address] Mary Reyes [facility] [address] 10/26/2023 4:00 PM EDT Office Visit Cardiology at [address] [place] [address] Jaspreet Kinsey MD [facility] [place] [address] 10/28/2023 9:00 AM EDT Office [place] [address] 10/29/2023 10:00 AM EDT Clinical [place] [address] 10/29/2023 10:15 AM EDT Procedure [place] [address] 11/01/2023 5:00 PM EDT Office Visit Gastroenterology at [place] [phone] Selene Browning, [facility] [place] [address] 11/22/2023 4:40 PM EDT Office Visit Cardiology at [place] [phone] Porsha Mcdaniels MD [facility] [place] [address] 12/13/2023 10:00 AM EDT Clinical [place] [phone] [facility] [place] [address] documented as of this encounter Visit Diagnoses Not on filedocumented in this encounter Care Teams Grinder Set Up Operator Universal Relationship Specialty Start Date End Date Polo Pearce PA [address] [place] [address] PCP - General Internal Medicine 06/09/21 documented as of this encounter
--- OUTSIDE RECORDS SUMMARY | 2023-09-20 18:36 | XMS_ITS | Encounter Summary ---
Author Organization [facility] [address] Care Team Providers Care Stunner And Shackler Name Role Phone Polo Pearce Primary Care Provider [phone] Encounter Details Date Type Department Care Team (Late st Contact Info) Description 02/08/2023 External [place] [phone] Social History Tobacco Use Types Packs/Day Years [...] slept in a jail (including now)? No 02/10/2023 Sex and Gender Information Value Date Recorded Sex Assigned at Not on file Gender Identity Not on file Sexual Orientation Not on file documented as of this encounter Plan of Treatment Upcoming Encounters Date Type Department Care Team (Late st Contact Info) Description 10/08/2023 8:30 AM EDT Tech Visit Vascular Lab at [place] [phone] Jose Cook 10/08/2023 9:30 AM EDT Office Visit [place] [phone] MD [facility] [place] [address] 10/21/2023 10:30 AM EDT Appointment Nuclear Medicine at [place] [phone] Mary Reyes APRN [facility] [place] [address] 10/21/2023 11:30 AM EDT Appointment [place] [address] Mary Reyes BRAKE ADJUSTER [facility] [place] [address] 10/21/2023 12:30 PM EDT Appointment [place] [phone] Mary Reyes APRN [facility] [place] [address] 10/21/2023 1:30 PM EDT Appointment [place] [address] Mary Reyes, [facility] [place] [address] 10/21/2023 2:30 PM EDT Appointment [place] [address] Mary Reyes, [facility] [place] [address] 10/26/2023 4:00 PM EDT Office Visit Cardiology at [address] [phone] Jaspreet Kinsey MD [facility] [place] [address] 10/28/2023 9:00 AM EDT Office [place] [address] 10/29/2023 10:00 AM EDT Clinical [place] [address] 10/29/2023 10:15 AM EDT Procedure [place] [address] 11/01/2023 5:00 PM EDT Office Visit [place] [phone] Selene Browning, PhD [facility] [place] [address] 11/22/2023 4:40 PM EDT Office Visit Cardiology at [address] [phone] Porsha Mcdaniels MD [facility] [place] [address] 12/13/2023 10:00 AM EDT Clinical Support Gastroenterology at [facility] [place] [phone] [facility] [place] [address] documented as of this encounter Procedures Procedure Name Priority Date/Time Associated Diagnosis Comments ECG SCAN Routine 02/08/2023 3:27 PM EST documented in this encounter Results * Scan Doc: ECG (02/08/2023 3:27 PM EST) Historical Provider MD FLEMING MGR SCAN EX T ORDR/RSLT documented in this encounter Visit Diagnoses Not on filedocumented in this encounter Care Teams Stunner And Shackler Relationship Specialty Start Date End Date Polo Pearce PA [address] [place] [address] PCP - General Internal Medicine 06/09/21 documented as of this encounter
--- OUTSIDE RECORDS SUMMARY | 2023-09-20 18:36 | XMS_ITS | Encounter Summary ---
Author Organization [facility] Address [facility] [place] [address] Care Team Providers Care Taxonomy Teacher Name Role Phone Polo Pearce Primary Care Provider [phone] Encounter Details Date Type Department Care Team (Latest Contact Info) Description 03/22/2023 Travel Social History Tobacco Use Types Packs/Day Years Used Date Smoking Tobacco: Never Smokeless Tobacco: Never Alcohol Use Standard Drinks/Week Comments Never 0 (1 standard drink = 0.6 oz pur e alcohol) [facility] Utilities Answer Date Recorded In the [...] AM EDT Tech [place] [phone] Jose Cook 10/08/2023 9:30 AM EDT Office Visit Vascular [place] [phone] MD [facility] [place] [address] 10/21/2023 10:30 AM EDT Appointment Nuclear Medicine at [place] [phone] Mary Reyes [facility] [place] [address] 10/21/2023 11:30 AM EDT Appointment Nuclear [place] [phone] Mary Reyes BLOCKER AUTOMATIC [facility] [place] [address] 10/21/2023 12:30 PM EDT Appointment Nuclear [place] [phone] Mary Reyes BLOCKER AUTOMATIC [facility] [place] [address] 10/21/2023 1:30 PM EDT Appointment Nuclear Medicine at [place] [phone] Mary Reyes [facility] [place] [address] 10/21/2023 2:30 PM EDT Appointment Nuclear [place] [phone] Mary Reyes BLOCKER AUTOMATIC [facility] [place] [address] 10/26/2023 4:00 PM EDT Office Visit Cardiology at [address] [phone] Jaspreet Kinsey MD [facility] [place] [address] 10/28/2023 9:00 AM EDT Office Visit [place] [address] 10/29/2023 10:00 AM EDT Clinical Support [place] [address] 10/29/2023 10:15 AM EDT Procedure visit [place] [address] 11/01/2023 5:00 PM EDT Office Visit G[place] [address] Selene Browning, PhD [facility] [place] [address] 11/22/2023 4:40 PM EDT Office Visit Cardiology at [address] [phone] Porsha Mcdaniels MD [facility] [place] [address] 12/13/2023 10:00 AM EDT Clinical Support G[place] [phone] Lucero Romero, [place] [facility] [place] [address] documented as of this encounter Visit Diagnoses Not on filedocumented in this encounter Care Teams Taxonomy Teacher Relationship Specialty Start Date End Date Polo Pearce PA [address] [place] [address] PCP - General Internal Medicine 06/09/21 documented as of this encounter
--- OUTSIDE RECORDS SUMMARY | 2023-09-20 18:36 | XMS_ITS | Encounter Summary ---
Author Organization [facility] Address [facility] [place] [address] Care Team Providers Care Sales Agent Business Services Name Role Phone Polo Pearce Primary Care Provider [phone] Encounter Details Date Type Department Care Team (Late st Contact Info) Description 10/20/2022 Telephone Cardiology at [address] [place] [address] Jaspreet Kinsey MD [facility] [place] [address] Social History Tobacco Use Types Packs/Day Years [...] to update office that she was at [facility] this morning as a follow up for [...] AM EDT Tech [place] [address] Jose Cook 10/08/2023 9:30 AM EDT Office [place] [phone] MD [facility] [place] [address] 10/21/2023 10:30 AM EDT Appointment [place] [address] Mary Reyes [facility] [place] [address] 10/21/2023 11:30 AM EDT Appointment [place] [phone] Mary Reyes [facility] [place] [address] 10/21/2023 12:30 PM EDT Appointment [place] [address] Mary Reyes, [facility] [place] [address] 10/21/2023 1:30 PM EDT Appointment [place] [address] Mary Reyes, SNAKER [facility] [place] [address] 10/21/2023 2:30 PM EDT Appointment [place] [address] Mary Reyes, [facility] [place] [address] 10/26/2023 4:00 PM EDT Office Visit Cardiology at [address] [phone] Jaspreet Kinsey MD [facility] [place] [address] 10/28/2023 9:00 AM EDT Office [place] [address] 10/29/2023 10:00 AM EDT Clinical Support [place] [address] 10/29/2023 10:15 AM EDT Procedure [place] [address] 11/01/2023 5:00 PM EDT Office [place] [phone] Selene Browning, PhD [facility] [place] [address] 11/22/2023 4:40 PM EDT Office Visit Cardiology at [address] [phone] Porsha Mcdaniels MD [facility] [place] [address] 12/13/2023 10:00 AM EDT Clinical [place] [phone] [facility] [place] [address] documented as of this encounter Visit Diagnoses Not on filedocumented in this encounter Care Teams Sales Agent Business Services Relationship Specialty Start Date End Date Polo Pearce PA Sb MOTT [address] [place] [address] PCP - General Internal Medicine 06/09/21 documented as of this encounter
--- OUTSIDE RECORDS SUMMARY | 2023-09-20 18:36 | XMS_ITS | Encounter Summary ---
Author Organization [place] [place] [address] Care Team Providers Care Aml Analyst Name Role Phone Polo Pearce Primary Care Provider [phone] Reason for Visit * Reason Onset Date Comments Pre Procedure Call 03/16/2023 Encounter Details Date Type Department Care Team (Late st Contact Info) Description 03/16/2023 Telephone Cardiology at [address] [phone] Mary Motta, RN Pre Procedure Call Social History Tobacco Use Types Packs/Day Years Used Date Smoking Tobacco: Never Smokeless Tobacco: Never Alcohol Use Standard Drinks/Week Comments Never 0 (1 standard drink = 0.6 oz pur e alcohol) [facility] Utilities Answer Date Recorded In the past 12 months has e [employer], gas, oil, or water [employer] threatened to shut off services in your [...] ESTSummary: Pre Procedure Call: SVT Ablation EP SALT LIFTER COORDINATION CHECKLIST Patient Name: Indira Roque Patient Performing Readiness Paraprofessional: Jed Tovar Referring Provider: Jaspreet Kinsey Date of Procedure: 04/01/23 Arrival Time/ Case Time: 6:00 am / 7:30 am Check In Location: Documentation Spec Desk 4W Date Patient was Called: 04/01/23 Procedure: SVT Ablation Company: [employer] Type: RF Orders: Yes Lab Orders: Yes [...] overnight , understands that they will need city route driver on day of discharge Notified pt that Esqueda catheter may be placed on day of procedure depending on type & duration of case. documented in this encounter Plan of Treatment Upcoming Encounters Date Type Department Care Team (Late st Contact Info) Description 10/08/2023 8:30 AM EDT Tech [place] [address]-1000 Jose Cook 10/08/2023 9:30 AM EDT Office Visit [place] [address]-[address] MD [facility] [place] [address] 10/21/2023 10:30 AM EDT Appointment [place] [phone] Mary Reyes [facility] [place] [address] 10/21/2023 11:30 AM EDT Appointment [place] [address]-1000 Mary Reyes [facility] [place] [address] 10/21/2023 12:30 PM EDT Appointment [place] [phone] Mary Reyes [facility] [place] [address] 10/21/2023 1:30 PM EDT Appointment Nuclear [place] [address] Mary Reyes APRN [facility] [place] [address] 10/21/2023 2:30 PM EDT Appointment Nuclear Medicine at [place] [phone] Mary Reyes APRN [facility] [place] [address] 10/26/2023 4:00 PM EDT Office Visit Cardiology at [address] [phone] Jaspreet Kinsey MD [facility] [place] [address] 10/28/2023 9:00 AM EDT Office Visit [place] [address] 10/29/2023 10:00 AM EDT Clinical Support [place] [address] 10/29/2023 10:15 AM EDT Procedure visit [place] [address] 11/01/2023 5:00 PM EDT Office Visit Gastroenterology at [place] [phone] Selene Browning, PhD [facility] [place] [address] 11/22/2023 4:40 PM EDT Office Visit Cardiology at [place] [phone] Porsha Mcdaniels MD [facility] [place] [address] 12/13/2023 10:00 AM EDT Clinical Support [place] [address] Lucero Romero, [facility] [place] [address] documented as of this encounter Visit Diagnoses Not on filedocumented in this encounter Care Teams Aml Analyst Relationship Specialty Start Date End Date Polo Pearce PA [address] [place] [address] PCP - General Internal Medicine 06/09/21 documented as of this encounter
--- OUTSIDE RECORDS SUMMARY | 2023-09-20 18:36 | XMS_ITS | Encounter Summary ---
Author Organization [facility] Address [facility] [place] [address] Care Team Providers Care Die Repairer Stamping Name Role Phone Polo Pearce Primary Care Provider [phone] Encounter Details Date Type Department Care Team (Latest Contact Info) Description 02/16/2023 Travel Social History Tobacco Use Types Packs/Day Years Used Date Smoking Tobacco: Never Smokeless Tobacco: Never Alcohol Use Standard Drinks/Week Comments Never 0 (1 standard drink = 0.6 oz pur e alcohol) [facility] Utilities Answer Date Recorded [...] slept in a detention (including now)? No 02/10/2023 Sex and Gender Information Value Date Recorded Sex Assigned at Not on file Gender Identity Not on file Sexual Orientation Not on file documented as of this encounter Plan of Treatment Upcoming Encounters Date Type Department Care Team (Late st Contact Info) Description 10/08/2023 8:30 AM EDT Tech [place] [address]-1000 Jose Cook 10/08/2023 9:30 AM EDT Office Visit [place] [phone] MD [facility] [place] [address] 10/21/2023 10:30 AM EDT Appointment Nuclear Medicine at [place] [phone] Mary Reyes [facility] [address] 10/21/2023 11:30 AM EDT Appointment [place] [phone] Mary Reyes CONFERENCE COORDINATOR [facility] [place] [address] 10/21/2023 12:30 PM EDT Appointment [place] [address]-1000 Mary Reyes CONFERENCE COORDINATOR [facility] [place] [address] 10/21/2023 1:30 PM EDT Appointment Nuclear Medicine at [place] [phone] Mary Reyes [facility] [place] [address] 10/21/2023 2:30 PM EDT Appointment [place] [phone] Mary Reyes CONFERENCE COORDINATOR [facility] [place] [address] 10/26/2023 4:00 PM EDT Office Visit Cardiology at [address] [phone] Jaspreet Kinsey MD [facility] [place] [address] 10/28/2023 9:00 AM EDT Office Visit [place] [address] 10/29/2023 10:00 AM EDT Clinical Support [place] [address] 10/29/2023 10:15 AM EDT Procedure [place] [address] 11/01/2023 5:00 PM EDT Office Visit [place] [address] Selene Browning, PhD [facility] [place] [address] 11/22/2023 4:40 PM EDT Office Visit Cardiology at [address] [phone] Porsha Mcdaniels MD [facility] [place] [address] 12/13/2023 10:00 AM EDT Clinical [place] [phone] Lucero Romero, [place] [facility] [place] [address] documented as of this encounter Visit Diagnoses Not on filedocumented in this encounter Care Teams Die Repairer Stamping Relationship Specialty Start Date End Date Polo Pearce PA [address] [place] [address] PCP - General Internal Medicine 06/09/21 documented as of this encounter
--- OUTSIDE RECORDS SUMMARY | 2023-09-20 18:36 | XMS_ITS | Encounter Summary ---
Author Organization [facility] Address [facility] [place] [address] Care Team Providers Care Saddle Tree Stitcher Name Role Phone Polo Pearce Primary Care Provider [phone] Encounter Details Date Type Department Care Team (Late st Contact Info) Description 12/22/2022 Telephone Cardiology at [address] [place] [address] Jaspreet Kinsey MD [facility] [place] [address] Social History Tobacco Use Types Packs/Day Years [...] AM EDT Tech [place] [address]-1000 Jose Cook 10/08/2023 9:30 AM EDT Office Visit Vascular Surgery at [place] [phone] MD [facility] [place] [address] 10/21/2023 10:30 AM EDT Appointment Nuclear Medicine at [address]1000 Mary Reyes [facility] [place] [address] 10/21/2023 11:30 AM EDT Appointment Nuclear Medicine at [place] [phone] Mary Reyes [facility] [place] [address] 10/21/2023 12:30 PM EDT Appointment [place] [phone] Mary Reyes [facility] [place] [address] 10/21/2023 1:30 PM EDT Appointment [place] [phone] Mayr Reyes [facility] [place] [address] 10/21/2023 2:30 PM EDT Appointment [place] [phone] Mary Reyes APRN [facility] [place] [address] 10/26/2023 4:00 PM EDT Office Visit Cardiology at [address] [phone] Jaspreet Kinsey MD [facility] [place] [address] 10/28/2023 9:00 AM EDT Office [place] [address] 10/29/2023 10:00 AM EDT Clinical [place] [address] 10/29/2023 10:15 AM EDT Procedure [place] [address] 11/01/2023 5:00 PM EDT Office Visit Gastroenterology at [place] [phone] Selene Browning, PhD [facility] [place] [address] 11/22/2023 4:40 PM EDT Office Visit Cardiology at [address] [phone] Porsha Mcdaniels MD [facility] [place] [address] 12/13/2023 10:00 AM EDT Clinical Support [place] [phone] [facility] [place] [address] documented as of this encounter Visit Diagnoses Not on filedocumented in this encounter Care Teams Saddle Tree Stitcher Relationship Specialty Start Date End Date Polo Pearce PA [address] [place] [address] PCP - General Internal Medicine 06/09/21 documented as of this encounter
--- OUTSIDE RECORDS SUMMARY | 2023-09-20 18:36 | XMS_ITS | Encounter Summary ---
Author Organization [facility] [place] [address] Care Team Providers Care Drum Operator Name Role Phone Polo Pearce Primary Care Provider [phone] Reason for Visit * Auth/Cert (Routine) Specialty Diagnoses / Procedures Referred By Jayant harris Referred To Contact Diagnoses NSTEMI (non-ST elevated myocardial infarction) NSTEMI NSTEMI (non-ST elevated myocardial infarction) [I21.4] [I21.4] NSTEMI (non-ST elevated myocardial infarction) Procedures EMERGENCY IPI Itz Bhardwaj MD [facility] [place] [address] [facility] Referral ID Status Reason Start Date Expiration Date Visits Re quested Visits Authorized [id number] 1 1 Encounter Details Date Type Department Care Team (Latest Contact Info) Description 02/08/2023 6:34 PM EST - 02/11/2023 3:45 PM EST Hospital Encounter Heart and Vascular Unit Level 4 [place] [id number] Bobby Edmonds MD [facility] [place] [address] Itz Bhardwaj MD [facility] [place] [place] [address] Chest pain, unspecified type; NSTEMI [...] Loida Madrigal Patient Age: 52 y.o. Language: Greek Race: White Ethnicity: Not nor Admit date: 02/08/2023 Discharge date and time: 02/11/2023 Attending Physician: Itz Bhardwaj MD Discharge Physician: Itz Bhardwaj MD PCP: JOCY Franco ([phone]) ID: Loida Madrigal is a 52 y.o. female w/ PMH of NSTEMI (2019, no coronary disease identified),HTN, HLD, HFpEF, PE, AVNRT, and Afib on eliquis, admitted to [facility] on 02/08/2023 for a total of 3 [...] upper lobe. Started on eliquis 08/2022 TTE ([facility]): normal bi-v s/f. 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 In the [facility] ED, initial troponin was elevated at 622ng/L. D-Dimer was 264 and K was 3.2. Pro-BNP was elevated at 1256. CXR did not show acute process. An EKG was performed and showed ST-depressions in leads II, III, aVF, and V4-V6. She was given several doses of sublingual nitroglycerin without significant reduction in chest pain. Given her elevated troponin and EKG changes, cardiology at [facility] was contacted for transfer. She was loaded [...] unchanged from prior EKGs. Her troponins at [facility] are flat 23 > 27. Additionally, she had a CT coronary in 09/2022 which showed non-obstructive coronary arteries. Her TTE was reassuring with EF 59% with concern for segmental wall motion abnormalities that were not present prior. Her chest pain is likely not related to ACS. She did continue to have chest pain throughoutadmission that responded to nitro. Her [employer] amlodipine was discontinued due to hypotension and [...] that was done by the on-call overnight milling supervisor, there is no significant change in biventricular [...] days. Refills: 0 fluticasone propionate 50 mcg/actuation [place], Suspension Commonly known as: Flonase 1 spray [...] 11:20 AM Jed Tovar MD Cardiology at [facility] Arrive at: [employer] [facility] [phone] 03/04/2023 4:00 PM Jaspreet Kinsey MD Cardiology at [place] Arrive at: [facility] [address] [phone] Provider Contact Information: JOCY Franco [address] / [facility] [id number] Discharge References/Attachments: Discharge References/Attachments None Addendum: The [...] as needed. fluticasone propionate (FLONASE) 50 mcg/actuation [place], Suspension 1 spray by Each Nare route [...] of this encounter Progress Notes * Heidy Walekr DO - 02/10/2023 6:23 AM EST Inpatient Cardiology Progress Note Patient Name: Loida Madrigal Date of Admission: 02/08/2023 ( Hospital Day 2 days ) Service: S2 ID: Loida Madrigal is a 52 y.o. female with PMHx NSTEMI (2019, no coronary disease identified),HTN, HLD, HFpEF, AVNRT, hx of PE, and Afib on eliquis who initially presented to [facility] with chest pain and shortness of breath. [...] that was done by the on-call overnight milling supervisor, there is no significant change in biventricular function. Assessment: Loida Madrigal is a 52 y.o. female with a PMHx NSTEMI (2019, no coronary disease identified), HTN, HLD, HFpEF, and Afib on [facility] who initially presented to [facility] with chest pain and shortness ofbreath. There [...] Heidy Walker DO Internal Medicine PGY-1 Pager [phone], M1-S2 Service Associated attestation - Itz Bhardwaj [...] Day 1 day ) Service: S2 ID: oLida Madrigal is a 52 y.o. female with PMHx NSTEMI (2019, no coronary disease identified),HTN, HLD, HFpEF, AVNRT, hx of PE, and Afib on eliquis who initially presented to [facility] with chest pain and shortness of breath. [...] that was done by the on-call overnight milling supervisor, there is no significant change in biventricular function. Cardiac Catheterization: Pending. Assessment: Loida Madrigal is a 52 y.o. female with a PMHx NSTEMI (2019, no coronary disease identified), HTN, HLD, HFpEF, and Afib on eliquis who initially presented to [facility] with chest pain and shortness ofbreath. There [...] Heidy Walker DO Internal Medicine PGY-1 Pager [phone], M1-S2 Service documented in this encounter H&P Notes * German Bianchi MD - 02/08/2023 10:05 PM EST Images from the original note were not included. Cardiology Admission History and Physical Patient Name: Loida Madrigal Service: M1-S1 Responsible Attending: Bobby Edmonds MD PCP: JOCY Franco PCP phone #: [phone] ID/Chief Complaint: Loida Madrigal is a 52 y.o. female with a PMHx NSTEMI (2019, no coronary disease identified), HTN, HLD, HFpEF, PE, AVNRT, and Afib on eliquis who initially presented to [facility] with chest pain and shortness of breath, now transferred to [facility] for management of presumed NSTEMI. History of [...] At this time, she presented to the [facility] ED. In the [facility] ED, initial troponin was elevated at 622ng/L. D-Dimer was 264 and K was 3.2. Pro-BNP was elevated at 1256. CXR did not show acute process. An EKG was performed and showed ST-depressions in leads II, III, aVF, and V4-V6. She was given several doses of sublingual nitroglycerin without significant reduction in chest pain. Given her elevated troponin and EKG changes, cardiology at [facility] was contacted for transfer. She was loaded [...] upper lobe. Started on eliquis 08/2022 TTE ([facility]): normal bi-v s/f. 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 fluticasone propionate (FLONASE) 50 mcg/actuation [place], Suspension 1 spray by Each Nare route [...] Mother: history of stroke. Father: history of AL in father. Siblings: none. Social History: Tobacco: [...] Afib on eliquis who initially presented to [facility] with chest pain and shortness of breath, now transferred to [facility] for management of presumed NSTEMI. Mrs. Madrigal [...] Bianchi MD, PGY-2 Cardiology M1-S2, Team Pager [phone] 02/08/2023 Associated attestation - Itz Bhardwaj MD [...] fairly recent. She has ruled out for AL with low-level not increasing troponins and her [...] in an outpatient cardiac rehabilitation program at [facility] was discussed. Patient agrees to a referral [...] COVID test: Lab Results Component Value Date [id number] Not Detected 06/13/2021 Present on Admission: NSTEMI (non-ST elevated myocardial infarction) Hospitalizations Within the Past 30 Days: no previous admission in last 30 days Patient receiving hospital care under Inpatient status. Admission order reviewed. Health/Prescription Coverage: Primary Insurance: [employer] [facility] [place] Payor: [facility] [place] / Plan: [facility] [place]ANGE / Product Type: *No Product type* / Secondary Insurance: N/A ; Prescription Coverage: Yes Preferred Pharmacy: [facility] - [place], [place] - [address] [facility] [address] [facility] [address] [facility] - [place], [place] - [address] [facility] [address] [facility] [address] [facility] [address] Advance Care Planning: Attempt Cardiopulmonary Resuscitation - Inpatient <no information> -Advanced Directive: No, need to discuss (Referral sent to [facility] [employer]) Current Functional Ability: Independent Functional Status Prior to Admission: Independent Home Environment: Others in the home: spouse (Lives w/ (Boby)). Current Living Arrangements: home/apartment/condo. Accessibility Concerns:1.5 story home (steps w/ railings). 5-6 [place]TER[place] home. No concerns. Current DME: respiratory supplies ([employer] ([employer])) [address] [facility] [phone] Social & Family Supports: All names listed [...] Tasha aguayo, when medically ready. Registered Nurse Collective Bargaining Specialist / Property Accountant will continue to follow patient???s progress and [...] AM EDT Tech Visit Vascular Lab at [place] [phone] Jose Cook 10/08/2023 9:30 AM EDT Office Visit Vascular Surgery at [place] [phone] MD [facility] [place] [address] 10/21/2023 10:30 AM EDT Appointment Nuclear Medicine at [place] [phone] [facility] [place] [address] 10/21/2023 11:30 AM EDT Appointment [place] [phone] [facility] [address] 10/21/2023 12:30 PM EDT Appointment [place] [phone] [facility] [place] [address] 10/21/2023 1:30 PM EDT Appointment Nuclear Medicine at [place] [phone] [facility] [place] [address] 10/21/2023 2:30 PM EDT Appointment [place] [address] Mary Reyes, [facility] [place] [address] 10/26/2023 4:00 PM EDT Office Visit Cardiology at [address] [phone] Jaspreet Kinsey MD [facility] [place] [address] 10/28/2023 9:00 AM EDT Office [place] [address] 10/29/2023 10:00 AM EDT Clinical [place] [address] 10/29/2023 10:15 AM EDT Procedure [place] [address] 11/01/2023 5:00 PM EDT Office [place] [phone] Selene Browning, PhD [facility] [place] [address] 11/22/2023 4:40 PM EDT Office Visit Cardiology at [address] [phone] Porsha Mcdaniels MD [facility] [place] [address] 12/13/2023 10:00 AM EDT Clinical Support Gastroenterology at [facility] [place] [place] [address] [facility] [address] documented as of this encounter Procedures Procedure [...] multiple bacterial species suggesting mucosal contamination. (A) [facility] Urine 02/11/2023 9:30 AM EST 02/11/2023 1:19 PM EST Narrative Resulting Agency Comment Spec In Lab Heidy Walker MD MICROBIOLOGY - GENER AL ORDERABLES Performing Organization Address [facility] Co de Phone Number [facility] [place] [address] * (ABNORMAL) Urinalysis Microscopic Exam (02/11/2023 9:30 AM EST) Pathologist [facility] RBC UA 1 0 - 4 /HPF [facility] WBC UA 29(H) 0 - 5 /HPF [facility] Bacteria UA Few(A) None /HPF [facility] Squam Epith UA 1 <=4 /HPF [facility] Trans Epith UA 2(H) <=1 /HPF [facility] Hyaline Cast UA 2 0 - 2 /LPF [facility] CaOx Mattie UA Moderate(A ) None /HPF [facility] Urine Urine / Unknown 02/11/2023 9 :30 AM EST 02/11/2023 10:33 AM EST Narrative Resulting Agency Comment Spec In Lab Heidy Walker MD URINE ORDERABLES Performing Organization Address [facility]/ZIP Co de Phone Number [facility] [place] [address] * (ABNORMAL) Urinalysis with reflex Culture (02/11/2023 9:30 AM EST) Pathologist [facility] Glucose UA 500(Critica l) Negative mg/dL [facility] Comment: Urinalysis result NOT critical without a combination of Glucose greater than or equal to 500 mg/dL AND Ketones greater than or equal to 80 mg/dL Protein UA Negative Negative mg/dL [facility] Bilirubin UA Negative Negative mg/dL [facility] Comment: Clinical correlation required for positive Urine Bilirubin results as false positive may occur with some drugs and drug related products. If a false positive is suspected a serum total bilirubin should be considered if clinically indicated. Urobilinogen UA Normal Normal mg/dL [facility] pH UA 5.5 5.0 - 8.0 [facility] Blood UA Negative Negative mg/dL [facility] Ketones UA Trace(A) Negative mg/dL [facility] Nitrite UA Negative Negative [facility] Leukocytes UA Moderate(A) Negative mcL [facility] Appearance UA Cloudy(A) Clear [facility] Spec Newton Hamilton UA 1.029 1.005 - 1.030 [facility] Color UA Dark Yellow Yellow [facility] Culture Reflexed Yes [facility] Urine Urine / Unknown 02/11/2023 9 :30 AM EST 02/11/2023 10:32 AM EST Narrative Resulting Agency Comment Spec In Lab Heidy Walker MD URINE ORDERABLES [facility] [place] [address] * EKG 12 Lead (02/11/2023 6:07 AM EST) Ventricular rate 47 BPM MUSE SYSTEM Atrial Rate 47 BPM MUSE SYSTEM P-R Interval 200 ms MUSE SYSTEM QRS Duration 88 ms MUSE SYSTEM Q-T Interval 522 ms MUSE SYSTEM QTC Calculated (Bezet) 461 ms MUSE SYSTEM Calculated P [place] 36 degrees MUSE SYSTEM Calculated R [place] 48 degrees MUSE SYSTEM Calculated T [place] 12 degrees MUSE SYSTEM INTERPRETATION Sinus bradycardia Possible Left atrial enlargement Possible Lateral infarct (cited on or before 08-FEB-2023) Long QT interval Abnormal ECG When compared with ECG of 10-FEB-2023 11:44, No significant change was found I personally reviewed the tracing and edited the fellows interpretation Confirmed by fellow MD Rosalinda, Alejandro ([id number]) on 02/11/2023 2:15:46 PM Confirmed by Kai Haider ([id number]) on 02/11/2023 4:16:20 PM MUSE SYSTEM 02/11/2023 6:07 AM EST 02/11/2023 4:16 PM EST Itz Bhardwaj MD ECG ORDERABLES MUSE SYSTEM * Differential, Automated (02/11/2023 3:41 AM EST) Neutrophils % 53.9 % [facility] Neutr Abs (ANC) 3.50 1.70 - 6.10 x10(3)/[facility] Lymphocytes % 31.5 % [facility] Lymphocytes Abs 2.0 0.9 - 3.2 x10(3)/[facility] Monocytes % 8.9 % [facility] Monocyte Abs 0.6 0.3 - 0.9 x10(3)/[facility] Eosinophils % 4.9 % [facility] Eosinophils Abs 0.3 0.0 - 0.4 x10(3)/[facility] Basophils % 0.6 % [facility] Basophils Abs 0.0 0.0 - 0.1 x10(3)/[facility] Immature Gran % 0.20 % [facility] Comment: Immature granulocytes(IG's)percentage and absolute count will include metamyelocytes, myelocytes, and promyelocytes. Blood smears from CBCs yielding IG's will be scanned manually for concordance. If this scan disagrees with the automated IG or if promyelocytes are noted, a manual differential will be performed. Shonda Gran Abs 0.01 0.00 - 0.04 x10(3)/[facility] Blood 02/11/2023 3:41 AM EST 02/11/2023 4:01 AM EST Narrative Resulting Agency Comment Spec In Lab German Bianchi MD HEMATOLOGY ORDERABL ES [facility] [place] [address] * Hemogram (02/11/2023 3:41 AM EST) WBC 6.5 4.0 - 9.5 x10(3)/[facility] RBC 4.55 4.00 - 5.21 x10(6)/[facility] Hemoglobin 14.4 11.7 - 15.5 g/dL [facility] Hematocrit 42.9 35.7 - 45.8 % [facility] MCV 94.3 82.6 - 94.4 fL [facility] MCH 31.6 27.1 - 32.0 pg [facility] MCHC 33.6 31.7 - 35.0 g/dL [facility] Platelets 240 145 - 357 x10(3)/[facility] RDWSD 42.9 37.0 - 46.0 fL [facility] RDWCV 12.4 11.5 - 14.1 % [facility] MPV 11.0 7.6 - 12.9 fL [facility] nRBC % Auto 0.0 % [facility] nRBC Abs Auto 0.000 0.000 - 0.000 x10(3)/[facility] Blood 02/11/2023 3:41 AM EST 02/11/2023 4:01 AM EST Narrative Resulting Agency Comment Spec In Lab German Bianchi MD HEMATOLOGY ORDERABL ES Performing Organization Address [facility]/ZIP Co de Phone Number [facility] [place] [address] * Magnesium (02/11/2023 3:41 AM EST) Pathologist [facility] Magnesium 0.91 0.69 - 1.07 mmol/L [facility] Blood 02/11/2023 3:41 AM EST 02/11/2023 4:01 AM EST Narrative Resulting Agency Comment Spec In Lab Bobby Edmonds MD CHEMISTRY ORDERABLES Performing Organization Address [facility] Co de Phone Number [facility] [place] [address] * (ABNORMAL) Basic Metabolic Panel (non-fasting) (02/11/2023 3:41 AM EST) Pathologist [facility] Glucose Lvl 97 65 - 199 mg/dL [facility] [...] questions. Chloride 109(H) 98 - 107 mmol/L [facility] CO2 17(L) 22 - 31 mmol/L [facility] [...] In Lab Bobby Edmonds MD CHEMISTRY ORDERABLES [facility] [place] [address] * Differential, Automated (02/10/2023 3:46 AM EST) Neutrophils % 59.8 % [facility] Neutr Abs (ANC) 4.01 1.70 - 6.10 x10(3)/[facility] Lymphocytes % 27.5 % [facility] Lymphocytes Abs 1.8 0.9 - 3.2 x10(3)/[facility] Monocytes % 8.5 % [facility] Monocyte Abs 0.6 0.3 - 0.9 x10(3)/[facility] Eosinophils % 3.7 % [facility] Eosinophils Abs 0.2 0.0 - 0.4 x10(3)/[facility] Basophils % 0.4 % [facility] Basophils Abs 0.0 0.0 - 0.1 x10(3)/[facility] Immature Gran % 0.10 % [facility] Comment: Immature granulocytes(IG's)percentage and absolute count will include metamyelocytes, myelocytes, and promyelocytes. Blood smears from CBCs yielding IG's will be scanned manually for concordance. If this scan disagrees with the automated IG or if promyelocytes are noted, a manual differential will be performed. Shonda Gran Abs 0.01 0.00 - 0.04 x10(3)/[facility] Blood 02/10/2023 3:46 AM EST 02/10/2023 4:12 AM EST Narrative Resulting Agency Comment Spec In Lab German Bianchi MD HEMATOLOGY ORDERABL ES [facility] [place] [address] * Hemogram (02/10/2023 3:46 AM EST) WBC 6.7 4.0 - 9.5 x10(3)/[facility] RBC 4.60 4.00 - 5.21 x10(6)/[facility] Hemoglobin 14.4 11.7 - 15.5 g/dL [facility] Hematocrit 42.2 35.7 - 45.8 % [facility] MCV 91.7 82.6 - 94.4 fL [facility] MCH 31.3 27.1 - 32.0 pg [facility] MCHC 34.1 31.7 - 35.0 g/dL [facility] Platelets 246 145 - 357 x10(3)/[facility] LAB[facility]ATORY RDWSD 42.3 37.0 - 46.0 fL [facility] RDWCV 12.6 11.5 - 14.1 % [facility] MPV 11.1 7.6 - 12.9 fL [facility] nRBC % Auto 0.0 % [facility] nRBC Abs Auto 0.000 0.000 - 0.000 x10(3)/[facility] Blood 02/10/2023 3:46 AM EST 02/10/2023 4:12 AM EST Narrative Resulting Agency Comment Spec In Lab German Bianchi MD HEMATOLOGY ORDERABL ES Performing Organization Address City/[facility]/ZIP Co de Phone Number [facility] [place] [address] * Magnesium (02/10/2023 3:46 AM EST) Magnesium 1.01 0.69 - 1.07 mmol/L [facility] Blood 02/10/2023 3:46 AM EST 02/10/2023 4:12 AM EST Narrative Resulting Agency Comment Spec In Lab Bobby Edmonds MD CHEMISTRY ORDERABLES Performing Organization Address [facility] Co de Phone Number [facility] [place] [address] * (ABNORMAL) Basic Metabolic Panel (non-fasting) (02/10/2023 3:46 AM EST) Glucose Lvl 103 65 - 199 mg/dL [facility] Comment:Diabetes: >=200 mg/d L plus symptoms BUN 20(H) 8 - 18 mg/dL [facility] Creatinine 1.31(H) 0.70 - 1.20 mg/dL [facility] [...] Edmonds MD CHEMISTRY ORDERABLES Performing Organization Address [facility] Co de Phone Number [facility] [place] [address] * Potassium (02/09/2023 2:46 PM EST) [facility] Potassium 4.0 3.5 - 5.0 mmol/L BARRE [...] MD CHEMISTRY ORDERABL ES Performing Organization Address [facility] Co de Phone Number [facility] [place] [address] * ECHO LMTD W CONTRAST W LMTD SPEC DOPP COLOR DOPP (02/09/2023 9:01 AM EST) Anatomical Region Laterality Modality Cardiac Other 02/09/2023 8:19 AM EST Narrative 02/09/2023 9:39 AM EST [address] [place] [address] ? Echocardiogram Report Name: LOIDA MADRIGAL ? Study Date: 02/09/2023 08:19 AMBP: 98/57 mmHg ? Patient Location: [facility] : 1970 ? Height: 163 cm ? Account: [id number] Age: 52 yrs ? Weight: 99 kg Gender: Female ?BSA: 2.0 m2 Ordering Physician: BOBBY EDMONDS Referring Physician: AJ HARTMAN Performed By: Aaron Herr RDCS Reason For Study: NSTEMI (non-ST elevated myocardial infarction) Interpreting Fellow: Ciro Lovell. Exam Location: [facility]. Interpretation Summary Left ventricular systolic function is [...] that was done by the on-call overnight milling supervisor, there is no significant change in biventricular function. Procedure Limited - 75059. Image enhancement Definity was used for left [...] Note Manish Benitez MD - 02/09/2023 [address] [place] [address] Echocardiogram Report Name: LOIDA MADRIGAL Study Date: 308:19 AMBP: 98/57 mmHg Patient Location: [address] : 1970 Height: 163 cm Account: [id number] Age: 52 yrs Weight: 99 kg Gender: Female BSA: 2.0 m2 Ordering Physician: BOBBY EDMONDS Referring Physician: AJ HARTMAN Performed By: Aaron Herr RDCS Reason For Study: NSTEMI (non-ST elevated myocardial infarction) Interpreting Fellow: Ciro Lovell. Exam Location: [facility]. Interpretation Summary Left ventricular systolic function is [...] change in biventricular function. Procedure Limited - [address]. Image enhancement Definity was used for leftventricular [...] AM EST) Troponin-T HS 27(H) <=14 ng/L [facility] Comment: This patient's troponin [...] troponin value can be found in the [facility] Test Catalog Troponin - [facility] Test Catalog Reference: Fourth [place] Definition of Myocardial Infarction. Journal of the [place] College [employer]iology 2018;72:3865-5037 Blood 02/09/2023 8:01 AM EST 02/09/2023 8:06 AM EST Narrative Resulting Agency Comment Spec In Lab Itz Bhardwaj MD CHEMISTRY ORDERABL ES Performing Organization Address [facility] Co de Phone Number [facility] [place] [address] * CRP, acute inflammation (02/09/2023 3:55 AM EST) CRP <3.0 <=4.9 mg/L [facility] Blood Venous Draw / Unknown 02/09/2023 3:55 AM EST 02/09/2023 4:07 AM EST Narrative Resulting Agency Comment Spec In Lab Grady Metcalf MD CHEMISTRY ORDERABLES Performing Organization Address [facility] de Phone Number [facility] [place] [address] * Sedimentation rate (02/09/2023 3:55 AM EST) Sed Rate 15 2 - 39 mm/hr [facility] Comment: Effective February 15, 2019 [...] MD HEMATOLOGY ORDERABLE S Performing Organization Address [facility] Co de Phone Number [facility] [place] [address] * Differential, Automated (02/09/2023 3:55 AM EST) Neutrophils % 54.3 % [facility] Neutr Abs (ANC) 3.66 1.70 - 6.10 x10(3)/mcL [facility] Lymphocytes % 32.4 % [facility] Lymphocytes Abs 2.2 0.9 - 3.2 x10(3)/[facility] Monocytes % 8.3 % [facility] Monocyte Abs 0.6 0.3 - 0.9 x10(3)/[facility] Eosinophils % 4.1 % [facility] Eosinophils Abs 0.3 0.0 - 0.4 x10(3)/[facility] Basophils % 0.6 % [facility] Basophils Abs 0.0 0.0 - 0.1 x10(3)/[facility] Immature Gran % 0.30 % [facility] Comment: Immature granulocytes(IG's)percentage and absolute count will include metamyelocytes, myelocytes, and promyelocytes. Blood smears from CBCs yielding IG's will be scanned manually for concordance. If this scan disagrees with the automated IG or if promyelocytes are noted, a manual differential will be performed. Shonda Gran Abs 0.02 0.00 - 0.04 x10(3)/[facility] Blood 02/09/2023 3:55 AM EST 02/09/2023 4:06 AM EST Narrative Resulting Agency Comment Spec In Lab German Bianchi MD HEMATOLOGY ORDERABL ES Performing Organization Address City/State/[facility] Co de Phone Number [facility] [place] [address] * Hemogram (02/09/2023 3:55 AM EST) WBC 6.8 4.0 - 9.5 x10(3)/[facility] RBC 4.53 4.00 - 5.21 x10(6)/[facility] Hemoglobin 14.2 11.7 - 15.5 g/dL [facility] Hematocrit 41.2 35.7 - 45.8 % [facility] MCV 90.9 82.6 - 94.4 fL [facility] MCH 31.3 27.1 - 32.0 pg [facility] MCHC 34.5 31.7 - 35.0 g/dL [facility] Platelets 237 145 - 357 x10(3)/[facility] RDWSD 41.1 37.0 - 46.0 fL [facility] RDWCV 12.4 11.5 - 14.1 % [facility] MPV 11.2 7.6 - 12.9 [facility] nRBC % Auto 0.0 % [facility] nRBC Abs Auto 0.000 0.000 - 0.000 x10(3)/[facility] Blood 02/09/2023 3:55 AM EST 02/09/2023 4:06 AM EST Narrative Resulting Agency Comment Spec In Lab German Bianchi MD HEMATOLOGY ORDERABL ES [facility] [place] [id number] * (ABNORMAL) Heparin (unfractionated) Level (02/09/2023 3:55 AM EST) Heparin UFH Level 1.44(Crit ical) IU/mL [facility] Comment: [...] MD HEMATOLOGY ORDERABLE S Performing Organization Address [facility] Co de Phone Number [facility] [place] [address] * Magnesium (02/09/2023 3:55 AM EST) Magnesium 1.04 0.69 - 1.07 mmol/L [facility] Blood 02/09/2023 3:55 AM EST 02/09/2023 4:06 AM EST Narrative Resulting Agency Comment Spec In Lab Bobby Edmonds MD CHEMISTRY ORDERABLES Performing Organization Address [facility] Co de Phone Number [facility] [place] [address] * (ABNORMAL) Basic Metabolic Panel (non-fasting) (02/09/2023 3:55 AM EST) Glucose Lvl 103 65 - 199 mg/dL [facility] Comment:Diabetes: >=200 mg/d L plus symptoms BUN 19(H) 8 - 18 mg/dL [facility] Creatinine 1.13 0.70 - 1.20 mg/dL [facility] Sodium 142 135 - 145 mmol/L [facility] Comment:result rechecked- Potassium 2.9(Criti edy) 3.5 [...] - 107 mmol/L [facility] Comment:result rechecked-GH CO2 24 22 - 31 mmol/L [facility] Comment:result rechecked-GH Anion Gap 15 5 [...] In Lab Bobby Edmonds MD CHEMISTRY ORDERABLES [facility] [place] [address] * Differential, Automated (02/08/2023 10:08 PM EST) Neutrophils % 55.7 % [facility] Neutr Abs (ANC) 4.29 1.70 - 6.10 x10(3)/[facility] Lymphocytes % 33.0 % [facility] Lymphocytes Abs 2.5 0.9 - 3.2 x10(3)/[facility] Monocytes % 7.7 % [facility] Monocyte Abs 0.6 0.3 - 0.9 x10(3)/[facility] Eosinophils % 2.9 % [facility] Eosinophils Abs 0.2 0.0 - 0.4 x10(3)/[facility] Basophils % 0.6 % [facility] Basophils Abs 0.0 0.0 - 0.1 x10(3)/[facility] Immature Gran % 0.10 % [facility] Comment: Immature granulocytes(IG's)percentage and absolute count will include metamyelocytes, myelocytes, and promyelocytes. Blood smears from CBCs yielding IG's will be scanned manually for concordance. If this scan disagrees with the automated IG or if promyelocytes are noted, a manual differential will be performed. Shonda Gran Abs 0.01 0.00 - 0.04 x10(3)/[facility] Blood 02/08/2023 10:0 8 PM EST 02/08/2023 10:18 PM EST Narrative Resulting Agency Comment Spec In Lab German Bianchi MD HEMATOLOGY ORDERABL ES [facility] [place] [address] * (ABNORMAL) Hemogram (02/08/2023 10:08 PM EST) WBC 7.7 4.0 - 9.5 x10(3)/[facility] RBC 4.93 4.00 - 5.21 x10(6)/[facility] Hemoglobin 15.6(H) 11.7 - 15.5 g/dL [facility] Hematocrit 46.9(H) 35.7 - 45.8 % [facility] MCV 95.1(H) 82.6 - 94.4 fL [facility] MCH 31.6 27.1 - 32.0 pg [facility] MCHC 33.3 31.7 - 35.0 g/dL [facility] Platelets 201 145 - 357 x10(3)/[facility] RDWSD 45.0 37.0 - 46.0 fL [facility] RDWCV 12.8 11.5 - 14.1 % [facility] MPV 11.3 7.6 - 12.9 fL [facility] nRBC % Auto 0.0 % [facility] nRBC Abs Auto 0.000 0.000 - 0.000 x10(3)/mcL [facility] Blood 02/08/2023 10:0 8 PM EST 02/08/2023 10:18 PM EST Narrative Resulting Agency Comment Spec In Lab German Bianchi MD HEMATOLOGY ORDERABL ES [facility] [place] [address] * (ABNORMAL) Troponin (02/08/2023 10:08 PM EST) Troponin-T HS 23(H) <=14 ng/L [facility] Comment: This patient's troponin [...] troponin value can be found in the [facility] Test Catalog Troponin - [facility] Test Catalog Reference: Fourth [place] Definition of Myocardial Infarction. Journal of the [place] College of [employer]iology 2018;72:2169-1709 Blood 02/08/2023 10:0 8 PM EST 02/08/2023 10:18 PM EST Narrative Resulting Agency Comment Spec In Lab Bobby Edmonds MD CHEMISTRY ORDERABLES Performing Organization Address City/[facility] Co de Phone Number [facility] [place] [address] * (ABNORMAL) Magnesium (02/08/2023 10:08 PM EST) Magnesium 1.15(H) 0.69 - 1.07 mmol/L [facility] Blood 02/08/2023 10:0 8 PM EST 02/08/2023 10:18 PM EST Narrative Resulting Agency Comment Spec In Lab Bobby Edmonds MD CHEMISTRY ORDERABLES Performing Organization Address [facility] Co de Phone Number [facility] [place] [address] * (ABNORMAL) Basic Metabolic Panel (non-fasting) (02/08/2023 10:08 PM EST) Glucose Lvl 106 65 - 199 mg/dL [facility] Comment:Diabetes: >=200 mg/d L plus symptoms BUN 17 8 - 18 mg/dL [facility] Creatinine 0.96 0.70 - 1.20 mg/dL [facility] Sodium 151(H) 135 - 145 mmol/L [facility] [...] 107 mmol/L [facility] CO2 12(L) 22 - 31 mmol/L [facility] Anion Gap 48(H) 5 - 15 mmol/L [facility] Calcium 8.9 8.5 - 10.5 mg/dL [facility] Estimated GFR 71 >=60 mL/min/1. 73 m?? [facility] [...] Edmonds MD CHEMISTRY ORDERABLES Performing Organization Address City/[facility]/ZIP Co de Phone Number [facility] [place] [address] * (ABNORMAL) pro-Brain Natriuretic Peptide (02/08/2023 10:08 PM EST) ProBNP 850(H) <=124 pg/mL [facility] Blood 02/08/2023 10:0 8 PM EST 02/08/2023 10:18 PM EST Narrative Resulting Agency Comment Spec In Lab Bobby Edmonds MD CHEMISTRY ORDERABLES Performing Organization Address City/[facility]/ZIP Co de Phone Number [facility] [place] [address] * TSH (02/08/2023 10:08 PM EST) TSH 4.00 0.27 - 4.20 mcIU/mL [facility] Comment: Reference Interval (mcIU/mL): Females: ??First Trimester: 0.23-3.88 ??Second Trimester: 0.22-3.90 ??Third Trimester: 0.44-4.66 Blood 02/08/2023 10:0 8 PM EST 02/08/2023 10:18 PM EST Narrative Resulting Agency Comment Spec In Lab Bobby Edmonds MD CHEMISTRY ORDERABLES [facility] [place] [id number] * EKG 12 Lead (02/08/2023 6:38 PM EST) Ventricular rate 56 BPM MUSE SYSTEM Atrial Rate 56 BPM MUSE SYSTEM P-R Interval 182 ms MUSE SYSTEM QRS Duration 88 ms MUSE SYSTEM Q-T Interval 498 ms MUSE SYSTEM QTC Calculated (Bezet) 480 ms MUSE SYSTEM Calculated P [place] 27 degrees MUSE SYSTEM Calculated R [place] 40 degrees MUSE SYSTEM Calculated T [place] 15 degrees MUSE SYSTEM INTERPRETATION Sinus bradycardia [...] EST Unknown ECG ORDERABLES Performing Organization Address [facility] Co de Phone Number MUSE SYSTEM documented [...] Provider: Zoila Bhatt RN)1023 (Given - Provider: Opal Traore RN) ranolazine ER (Ranexa) tablet 500 [...] Heparin UFH Level - Per Protocol, Routine 8664 (Hold - Provider: Zoila Bhatt RN - Reason: See comment - Comment: UFH 1.44)0526 (Restarted - Provider: Zoila Bhatt RN)1124 (Stopped [...] Routine documented in this encounter Care Teams Drum Operator Relationship Specialty Start Date End Date Polo Pearce PA [address] [place] [address] PCP - General Internal Medicine 06/09/21 documented as of this encounter
--- OUTSIDE RECORDS SUMMARY | 2023-09-20 18:37 | XMS_ITS | Encounter Summary ---
Author Organization [facility] Address [facility] [place] [address] Care Team Providers Care Group Activities Aide Name Role Phone Polo Pearce Primary Care Provider [phone] Encounter Details Date Type Department Care Team (Late st Contact Info) Description 07/07/2022 Telephone Cardiology at [address] [place] [address] Jaspreet Kinsey MD [facility] [address] Social History Tobacco Use Types Packs/Day Years [...] encounter Miscellaneous Notes * Telephone Encounter - Brenad Callahan - 07/07/2022 11:03 AM EDT Pt [...] AM EDT Tech Visit Vascular Lab at [place] [phone] Jose Cook 10/08/2023 9:30 AM EDT Office Visit [place] [phone] MD [facility] [place] [address] 10/21/2023 10:30 AM EDT Appointment Nuclear Medicine at [place] [phone] Mary Reyes [facility] [place] [address] 10/21/2023 11:30 AM EDT Appointment [place] [phone] Mary Reyes [facility] [place] [address] 10/21/2023 12:30 PM EDT Appointment [place] [phone] Mary Reyes [facility] [place] [address] 10/21/2023 1:30 PM EDT Appointment [place] [phone] Mary Reyes [facility] [place] [address] 10/21/2023 2:30 PM EDT Appointment [place] [phone] Mary Reyes APRN [facility] [place] [address] 10/26/2023 4:00 PM EDT Office Visit Cardiology at [address] [phone] Jaspreet Kinsey MD [facility] [place] [address] 10/28/2023 9:00 AM EDT Office Visit [place] [address] 10/29/2023 10:00 AM EDT Clinical Support [place] [address] 10/29/2023 10:15 AM EDT Procedure visit [place] [address] 11/01/2023 5:00 PM EDT Office Visit Gastroenterology at [place] [phone] Selene Browning, PhD [facility] [place] [address] 11/22/2023 4:40 PM EDT Office Visit Cardiology at [address] [phone] Porsha Mcdaniels MD [facility] [place] [address] 12/13/2023 10:00 AM EDT Clinical Support [place] [phone] [facility] [place] [address] documented as of this encounter Visit Diagnoses Not on filedocumented in this encounter Care Teams Group Activities Aide Relationship Specialty Start Date End Date Polo Pearce PA [address] [place] [address] PCP - General Internal Medicine 06/09/21 documented as of this encounter
--- OUTSIDE RECORDS SUMMARY | 2023-09-20 18:37 | XMS_ITS | Encounter Summary ---
Author Organization [facility] Address [facility] [place] [address] Care Team Providers Care Millroom Supervisor Name Role Phone Polo Pearce Primary Care Provider [phone] Reason for Visit * Reason Onset Date Comments Ascites 07/28/2022 Chest Pain 07/28/2022 Encounter Details Date Type Department Care Team (Late st Contact Info) Description 07/28/2022 Telephone Cardiology at [address] [phone] Jaspreet Kinsey MD [facility] [place] [address] Ascites; Chest Pain Social History Tobacco Use [...] 10:10 AM EDT Indira is inpatient at [facility] today. Nurse Madison indicates [...] Creat 1.3 Plan: will remain inpatient at [facility] Outpatient CT heart planned on July 30 - cancel and reschedule (notified [facility] card lab [place]) documented in this encounter Plan of Treatment Upcoming Encounters Date Type Department Care Team (Late st Contact Info) Description 10/08/2023 8:30 AM EDT Tech Visit Vascular Lab at [place] [phone] Jose Cook 10/08/2023 9:30 AM EDT Office Visit Vascular Surgery at [place] [phone] MD [facility] [place] [place] [address] 10/21/2023 10:30 AM EDT Appointment Nuclear Medicine at [address] Mary Reyes [facility] [place] [address] 10/21/2023 11:30 AM EDT Appointment Nuclear Medicine at [place] [phone] Mary Reyes [facility] [place] [address] 10/21/2023 12:30 PM EDT Appointment Nuclear Medicine at [place] [phone] Mary Reyes [facility] [place] [address] 10/21/2023 1:30 PM EDT Appointment [place] [phone] Mary Reyes RIDING COACH [facility] [place] [address] 10/21/2023 2:30 PM EDT Appointment [place] [phone] Mary Reyes RIDING [employer]ACH [facility] [place] [address] 10/26/2023 4:00 PM EDT Office Visit Cardiology at [address] [phone] Jaspreet Kinsey MD [facility] [place] [address] 10/28/2023 9:00 AM EDT Office Visit [place] [address] 10/29/2023 10:00 AM EDT Clinical Support [place] [address] 10/29/2023 10:15 AM EDT Procedure visit [place] [address] 11/01/2023 5:00 PM EDT Office Visit [place] [address] Selene Browning, PhD [facility] [place] [address] 11/22/2023 4:40 PM EDT Office Visit Cardiology at [address] [phone] Porsha Mcdaniels MD [facility] [place] [address] 12/13/2023 10:00 AM EDT Clinical Support [place] [phone] Lucero Romero, [place] [facility] [place] [address] documented as of this encounter Visit Diagnoses Not on filedocumented in this encounter Care Teams Millroom Supervisor Relationship Specialty Start Date End Date Polo Pearce PA [address] [place] [address] PCP - General Internal Medicine 06/09/21 documented as of this encounter
--- OUTSIDE RECORDS SUMMARY | 2023-09-20 18:37 | XMS_ITS | Encounter Summary ---
[place] [address] Care Team Providers Care Graphics Coordinator Name Role Phone Polo Pearce Primary Care Provider [phone] Reason for Visit * Auth/Cert (Routine) Specialty Diagnoses / Procedures Referred By Jayant harris Referred To Contact Diagnoses NSTEMI (non-ST elevated myocardial infarction) NSTEMI Procedures EMERGENCY Willy Olivera MD [facility] [place] [address] [facility] Referral ID Status Reason Start Date Expiration Date Visits Re quested Visits Authorized [id number] 1 1 Encounter Details Date Type Department Care Team (Latest Contact Info) Description 09/27/2022 6:50 AM EDT - 09/27/2022 11:59 PM EDT Hospital Encounter Non-Invasive [place] [address] Discharge Disposition: Home Social History Tobacco Use [...] as needed. fluticasone propionate (FLONASE) 50 mcg/actuation [place], Suspension 1 spray by Each Nare route [...] AM EDT Tech Visit [place] [phone] Jose Cook 10/08/2023 9:30 AM EDT Office [place] [phone] MD [facility] [place] [address] 10/21/2023 10:30 AM EDT Appointment [place] [phone] Mary Reyes APRN [facility] [place] [address] 10/21/2023 11:30 AM EDT Appointment Nuclear Medicine at [place] [phone] Mary Reyes, [facility] [place] [address] 10/21/2023 12:30 PM EDT Appointment Nuclear Medicine at [place] [phone] Mary Reyes [facility] [place] [address] 10/21/2023 1:30 PM EDT Appointment [place] [phone] Mary Reyes, [facility] [place] [address] 10/21/2023 2:30 PM EDT Appointment [place] [phone] Mary Reyes, [facility] [place] [address] 10/26/2023 4:00 PM EDT Office Visit Cardiology at [address] [phone] Jaspreet Kinsey MD [facility] [place] [address] 10/28/2023 9:00 AM EDT Office [place] [address] 10/29/2023 10:00 AM EDT Clinical [place] [address] 10/29/2023 10:15 AM EDT Procedure [place] [address] 11/01/2023 5:00 PM EDT Office [place] [phone] Selene Browning, PhD [facility] [place] [address] 11/22/2023 4:40 PM EDT Office Visit Cardiology at [address] [phone] Porsha Mcdaniels MD [facility] [place] [address] 12/13/2023 10:00 AM EDT Clinical [place] [phone] Lucero Romero, [place] [place] [address] documented as of this encounter Procedures Procedure [...] mLs documented in this encounter Care Teams Graphics Coordinator Relationship Specialty Start Date End Date Polo Pearce PA [facility] [address] [place] [address] PCP - General Internal Medicine 06/09/21 documented as of this encounter
--- OUTSIDE RECORDS SUMMARY | 2023-09-20 18:37 | XMS_ITS | Encounter Summary ---
Author Organization [facility] Address [facility] [place] [address] Care Team Providers Care Rail Walker Name Role Phone Polo Pearce Primary Care Provider [phone] Reason for Visit * Reason Onset Date Comments Results 08/17/2022 Encounter Details Date Type Department Care Team (Late st Contact Info) Description 08/17/2022 Telephone Cardiology at [address] [phone] Jaspreet Kinsey [place] [address] Results Social History Tobacco Use Types Packs/Day [...] AM EDT Tech Visit [place] [address] Jose Cook 10/08/2023 9:30 AM EDT Office Visit [place] [phone] MD [facility] [place] [address] 10/21/2023 10:30 AM EDT Appointment Nuclear Medicine at [place] [phone] Mary Reyes [facility] [place] [address] 10/21/2023 11:30 AM EDT Appointment [place] [phone] Mary Reyes [facility] [place] [address] 10/21/2023 12:30 PM EDT Appointment [place] [phone] Mary Reyes [facility] [place] [address] 10/21/2023 1:30 PM EDT Appointment Nuclear Medicine at [place] [phone] Mary Reyes [facility] [place] [address] 10/21/2023 2:30 PM EDT Appointment [place] [phone] Mary Reyes, [facility] [place] [address] 10/26/2023 4:00 PM EDT Office Visit Cardiology at [address] [phone] Jaspreet Kinsey MD [facility] [place] [address] 10/28/2023 9:00 AM EDT Office [place] [address] 10/29/2023 10:00 AM EDT Clinical [place] [address] 10/29/2023 10:15 AM EDT Procedure [place] [address] 11/01/2023 5:00 PM EDT Office Visit [place] [phone] Selene Browning, PhD [facility] [place] [address] 11/22/2023 4:40 PM EDT Office Visit Cardiology at [address] [phone] Porsha Mcdaniels MD [facility] [place] [address] 12/13/2023 10:00 AM EDT Clinical Support [place] [phone] Lucero Romero RD [facility] [place] [address] documented as of this encounter Visit Diagnoses Not on filedocumented in this encounter Care Teams Rail Walker Relationship Specialty Start Date End Date Polo Pearce PA [address] [place] [address] PCP - General Internal Medicine 06/09/21 documented as of this encounter
--- OUTSIDE RECORDS SUMMARY | 2023-09-20 18:37 | XMS_ITS | Encounter Summary ---
Author Organization [facility] [place] [address] Care Team Providers Care Boilers Inspector Name Role Phone Polo Pearce Primary Care Provider [phone] Encounter Details Date Type Department Care Team (Late st Contact Info) Description 09/26/2022 Telephone [place] [address] Paulo Ramachandran Jr., MD [facility] [place] [address] Social History Tobacco Use Types Packs/Day Years [...] vasospasm rather than a true Type I OR, however, given degree of troponin rise and [...] AM EDT Tech Visit Vascular Lab at [place] [phone] Jose Cook 10/08/2023 9:30 AM EDT Office [place] [address] MD [facility] DR VASCULAR SURGERY [place], [place] [phone] 10/21/2023 10:30 AM EDT Appointment Nuclear Medicine at [place] [phone] Mary Reyes APRN [facility] [place] [address] 10/21/2023 11:30 AM EDT Appointment [place] [address] Mary Reyes [facility] [place] [place] [address] 10/21/2023 12:30 PM EDT Appointment [place] [address] Mary Reyes [facility] [place] [place] [address] 10/21/2023 1:30 PM EDT Appointment [place] [address] Mary Reyes [facility] [place] [place] [address] 10/21/2023 2:30 PM EDT Appointment [place] [address] Mary Reyes [facility] [place] [address] 10/26/2023 4:00 PM EDT Office Visit Cardiology at [address] [place] [phone] Jaspreet Kinsey MD [facility] [place] [address] 10/28/2023 9:00 AM EDT Office Visit [place] [address] 10/29/2023 10:00 AM EDT Clinical Support [place] [address] 10/29/2023 10:15 AM EDT Procedure visit [place] [address] 11/01/2023 5:00 PM EDT Office Visit Gastroenterology at [place] [phone] Selene Browning, PhD [facility] [place] [address] 11/22/2023 4:40 PM EDT Office Visit Cardiology at [place] [phone] Porsha Mcdaniels MD [facility] [place] [address] 12/13/2023 10:00 AM EDT Clinical [place] [phone] Lucero Romero, [facility] [place] [address] documented as of this encounter Visit Diagnoses Not on filedocumented in this encounter Care Teams Boilers Inspector Relationship Specialty Start Date End Date Polo Pearce PA [address] [place] [address] PCP - General Internal Medicine 06/09/21 documented as of this encounter
--- OUTSIDE RECORDS SUMMARY | 2023-09-20 18:37 | XMS_ITS | Encounter Summary ---
Author Organization [facility] [place] [address] Care Team Providers Care Rn Navigator Name Role Phone Polo Pearce Primary Care Provider [phone] Encounter Details Date Type Department Care Team (Late st Contact Info) Description 06/30/2022 Orders Only Cardiology at [address] [address] Jaspreet Kinsey MD [facility] [place] [address] Chest pain, unspecified type Social History Tobacco [...] AM EDT Tech [place] [phone] Jose Cook 10/08/2023 9:30 AM EDT Office Visit [place] [phone] MD [facility] [place] [address] 10/21/2023 10:30 AM EDT Appointment Nuclear Medicine at [place] [phone] Mary Reyes, [facility] [place] [address] 10/21/2023 11:30 AM EDT Appointment [place] [phone] Mary Reyes [facility] [place] [address] 10/21/2023 12:30 PM EDT Appointment [place] [phone] Mary Reyes [facility] [place] [address] 10/21/2023 1:30 PM EDT Appointment [place] [phone] Mary Reyes [facility] [place] [address] 10/21/2023 2:30 PM EDT Appointment [place] [phone] Mary Reyes [facility] [place] [address] 10/26/2023 4:00 PM EDT Office Visit Cardiology at [address] [place] [phone] Jaspreet Kinsey MD [facility] [place] [address] 10/28/2023 9:00 AM EDT Office [place] [address] 10/29/2023 10:00 AM EDT Clinical [place] [address] 10/29/2023 10:15 AM EDT Procedure [place] [address] 11/01/2023 5:00 PM EDT Office [place] [phone] Selene Browning, PhD [facility] [place] [address] 11/22/2023 4:40 PM EDT Office Visit Cardiology at [address] [phone] Porsha Mcdaniels MD [facility] [place] [address] 12/13/2023 10:00 AM EDT Clinical Support [place] [phone] Lucero Romero, [facility] [place] [address] documented as of this encounter Visit Diagnoses Diagnosis Chest pain, unspecified type documented in this encounter Care Teams Rn Navigator Relationship Specialty Start Date End Date Polo Pearce PA [address] [place] [address] PCP - General Internal Medicine 06/09/21 documented as of this encounter
--- OUTSIDE RECORDS SUMMARY | 2023-09-20 18:37 | XMS_ITS | Encounter Summary ---
Author Organization [facility] Address [facility] [place] [address] Care Team Providers Care Medical Assembly Name Role Phone Polo Pearce Primary Care Provider [phone] Encounter Details Date Type Department Care Team (Late st Contact Info) Description 03/19/2022 Telephone Cardiology at [address] [place] [address] Jed Tovar MD [facility] [place] [address] Social History Tobacco Use Types Packs/Day Years [...] for two weeks. Has been admitted to [facility] ED for this with rule out of aorta dissection. However, pain continues. [place]. Kinsey [place] [facility] [place] just begun diuretic therapy, in [...] AM EDT Tech [place] [address]1000 Jose Cook 10/08/2023 9:30 AM EDT Office [place] [phone] MD [facility] [place] [address] 10/21/2023 10:30 AM EDT Appointment [place] [phone] Mary Reyes [facility] [place] [address] 10/21/2023 11:30 AM EDT Appointment [place] [phone] Mary Reyes [facility] [place] [address] 10/21/2023 12:30 PM EDT Appointment [place] [phone] Mary Reyes [facility] [place] [address] 10/21/2023 1:30 PM EDT Appointment [place] [phone] Mary Reyes [facility] [place] [address] 10/21/2023 2:30 PM EDT Appointment [place] [phone] Mary Reyes [facility] [place] [address] 10/26/2023 4:00 PM EDT Office Visit Cardiology at [address] [phone] Jaspreet Kinsey MD [facility] [place] [address] 10/28/2023 9:00 AM EDT Office [place] [address] 10/29/2023 10:00 AM EDT Clinical [place] [address] 10/29/2023 10:15 AM EDT Procedure [place] [address] 11/01/2023 5:00 PM EDT Office [place] [address] Selene Browning, PhD [facility] [place] [address] 11/22/2023 4:40 PM EDT Office Visit Cardiology at [address] [address] Porsha Mcdaniels MD [facility] [place] [address] 12/13/2023 10:00 AM EDT Clinical [place] [phone] Lucero Romero, [facility] [place] [address] documented as of this encounter Visit Diagnoses Not on filedocumented in this encounter Care Teams Medical Assembly Relationship Specialty Start Date End Date Polo Pearce PA [address] [place] [address] PCP - General Internal Medicine 06/09/21 documented as of this encounter
--- OUTSIDE RECORDS SUMMARY | 2023-09-20 18:37 | XMS_ITS | Encounter Summary ---
[place] [address] Care Team Providers Care Merchandise Processor Name Role Phone Polo Pearce Primary Care Provider [phone] Reason for Visit * Auth/Cert (Routine) Specialty Diagnoses / Procedures Referred By Jayant harris Referred To Contact Diagnoses NSTEMI (non-ST elevated myocardial infarction) NSTEMI Procedures EMERGENCY IPI Susannah Gómez MD [facility] [place] [address] [facility] Referral ID Status Reason Start Date Expiration Date Visits Re quested Visits Authorized [id number] 1 1 Encounter Details Date Type Department Care Team (Latest Contact Info) Description 09/26/2022 3:42 PM EDT - 09/28/2022 5:02 PM EDT Hospital Encounter Heart and Vascular Unit Level 4 [place] [address] Susannah Gómez MD [facility] [place] [address] Non-ST elevation myocardial infarction (NSTEMI) [...] to the point that she presented to [facility] at around 630 or 7 AM this morning. At OSH: Patient presented with soft blood pressures of 90s/50s which improved with fluids. Initial troponins above 800. EKG with sinus bradycardia with inferolateral ST segment depressions, possibly increased from prior. OSH provider loaded full dose aspirin and started therapeutic Lovenox prior to transfer. On presentation to [facility] patient notes some constant chest pain that is approx 5/10 in severity centered over left chest. She has no shortness of breath or PND. On a regular day patient could walk about 30 feet on a flat surface before becoming shortness of breath. 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 She is under a considerable amount of [...] days. Refills: 0 fluticasone propionate 50 mcg/actuation [place], Suspension Commonly known as: Flonase 1 spray [...] 4:00 PM Jaspreet Kinsey MD Cardiology at [place] Arrive at: [facility] [address] [phone] 10/20/2022 8:00 AM Florencia Callahan [place] Vascular Lab at [facility] Arrive at: [place] [address] [phone] 10/20/2022 9:00 AM Umberto Abbott MD Vascular Surgery at [facility] Arrive at: [place] [address] [phone] Provider Contact Information: JOCY [address] [facility] [id number] Discharge References/Attachments: Discharge References/Attachments None documented in [...] October 08, 2022 at 4:00 pm in [place]). MEDICATION INSTRUCTIONS: At discharge, START - amlodipine [...] as needed. fluticasone propionate (FLONASE) 50 mcg/actuation [place], Suspension 1 spray by Each Nare route [...] EDT CARDIOLOGY S2 Daily Progress Note Pager [phone] Admit Date: 09/26/2022 Encounter Date: September 27, [...] 29-35-30. Chest pain improved en route to [facility], some improvement with nitro. Overnight: No acute [...] to the point that she presented to [facility] at around 630 or 7 [...] She notes she is working with a program and research coordinator. She is under a considerable amount of [...] 30 DAYS fluticasone propionate (FLONASE) 50 mcg/actuation [place], Suspension 1 spray, Each Nare, DAILY gabapentin [...] Medicine, PGY-1 Cardiology M1-S1, #3011 Cardiology M1-S2, #2032 09/26/2022, 6:07 PM Cardiology Staff Addendum Loida [...] COVID test: Lab Results Component Value Date [id number] Not Detected 06/13/2021 Present on Admission: NSTEMI (non-ST elevated myocardial infarction) Hospitalizations Within the Past 30 Days: no previous admission in last 30 days Patient receiving hospital care under Inpatient status. Admission order reviewed. Health/Prescription Coverage: Primary Insurance: [employer] [place] Payor: BLUE [employer]URE [employer] / Plan: [place] EX[place]ANGE / Product Type: *No Product type* / Secondary Insurance: N/A ; Prescription Coverage: Preferred Pharmacy: [id number] - [place], [place] - [address] [place] [address] [place] [address] [place], [place] - [address] [address] [facility] [address] [facility] [address] Advance Care Planning: Attempt Cardiopulmonary Resuscitation - Inpatient <no information> - Current Functional Ability: Independent Functional Status Prior to Admission: Home Environment: . Current Living Arrangements: home/apartment/condo. Accessibility Concerns: . Current DME: [address] [facility] [address] Social & Family Supports: All names listed [...] private vehicle when medically ready. Registered Nurse Shellfish Dredge Operator / Inspector Shells will continue to follow patient???s progress and remain available if situation changes for coordination of care, psychosocial support and/or discharge planning. Office of Care Management Fab Lozano MSN, RN CM Case Management [phone] * Plan of Care - Antonio Swann [...] AM EDT Tech Visit Vascular Lab at [place] [phone] Jose Cook 10/08/2023 9:30 AM EDT Office [place] [address] MD [facility] [place] [address] 10/21/2023 10:30 AM EDT Appointment Nuclear Medicine at [address] Mary Reyes, [facility] [place] [address] 10/21/2023 11:30 AM EDT Appointment Nuclear Medicine at [place] [phone] Mary Reyes, [facility] [place] [address] 10/21/2023 12:30 PM EDT Appointment Nuclear Medicine at [place] [phone] Mary Reyes, [facility] [place] [address] 10/21/2023 1:30 PM EDT Appointment [place] [address] Mary Reyes [facility] [place] [address] 10/21/2023 2:30 PM EDT Appointment [place] [address] Mary Reyes APRN [facility] [place] [address] 10/26/2023 4:00 PM EDT Office Visit Cardiology at [address] [phone] Jaspreet Kinsey MD [facility] [place] [address] 10/28/2023 9:00 AM EDT Office Visit [place] [address] 10/29/2023 10:00 AM EDT Clinical Support [place] [address] 10/29/2023 10:15 AM EDT Procedure visit [place] [address] 11/01/2023 5:00 PM EDT Office [place] [phone] Selene Browning, PhD [facility] [place] [address] 11/22/2023 4:40 PM EDT Office Visit Cardiology at [address] [phone] Porsha Mcdaniels MD [facility] [place] [address] 12/13/2023 10:00 AM EDT Clinical Support [place] [phone] [facility] [place] [address] documented as of this encounter Procedures Procedure [...] EDT) pH Salbador 7.32 7.32 - 7.42 [facility] pCO2 [place] 45 41 - 51 mmHg [facility] pO2 [place] 30 25 - 40 mmHg [facility] HCO3 [place] 22.8 mmol/L [facility] BE Salbador -3.3 mmol/L [facility] Hgb Blood Gas 15.2 11.7 - 15.5 g/dL [facility] O2HB [place] 52.4 % [facility] COHB [place] 1.0 % [facility] Comment: Nonsmokers: 0.5-1.5% COHB Smokers: Variable, but usually less than 10% Toxic: 20-30% COHB Lethal: Greater than 60% COHB METHB [place] 0.3 <=1.5 % [facility] Na Whole Blood 139 135 - 145 mmol/L [facility] K Whole Blood 4.6 3.5 - 5.0 mmol/L [facility] Comment: Please note: Patients with WBC >100,000 may have falsely elevated Potassium levels. Contact the Clinical Chemistry Laboratory if there are any questions. ICa Whole Blood 1.23 1.15 - 1.33 mmol/L [facility] Comment: Note: ??Total bilirubin higher than 20 mg/dL may lead to falsely low ionized calcium. CL Whole Blood 104 98 - 107 mmol/L [facility] Gluc Whole Bld 87 65 - 199 mg/dL [facility] Comment:Diabetes: >=200 mg/d L plus symptoms Lactate WB 1.3 0.5 - 2.2 mmol/L [facility] BGas Source Venous [facility] Blood Venous Draw / Unknown 09/28/2022 3:39 PM EDT 09/28/2022 3:50 PM EDT Narrative Resulting Agency Comment Spec In Lab Ciro Lovell MD CHEMISTRY ORDERABLES [facility] [place] [address] * EKG 12 Lead (09/28/2022 1:58 PM EDT) Ventricular rate 57 BPM MUSE SYSTEM Atrial Rate 57 BPM MUSE SYSTEM P-R Interval 180 ms MUSE SYSTEM QRS Duration 86 ms MUSE SYSTEM Q-T Interval 414 ms MUSE SYSTEM QTC Calculated (Bezet) 402 ms MUSE SYSTEM Calculated P Madison 40 degrees MUSE SYSTEM Calculated R Madison 67 degrees MUSE SYSTEM Calculated T Madison -56 degrees MUSE SYSTEM INTERPRETATION Sinus bradycardia [...] have questions please contact the health career and technology education 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 ? Narrative 09/28/2022 4:58 PM EDT EXAMINATION: CTA [...] who have questions please contactthe health career and technology education 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 Susannah Gómez MD IMG CT ORDERABLES * (ABNORMAL) Troponin (09/28/2022 6:56 AM EDT) Troponin-T HS 21(H) <=14 ng/L [facility] [...] can be found in the [facility] Test Catalog Troponin - [facility] Test Catalog Reference: Fourth Forman Definition of Myocardial Infarction. Journal of the Stateless College of Cardiology 2018;72:3879-3640 Blood 09/28/2022 6:56 AM EDT 09/28/2022 7:01 AM EDT Narrative Resulting Agency Comment Spec In Lab Susannah Gómez MD CHEMISTRY ORDERABLES [facility] [place] [address] * Differential, Automated (09/28/2022 3:49 AM EDT) Neutrophils % 45.9 % [facility] Neutr Abs (ANC) 2.92 1.70 - 6.10 x10(3)/[facility] Lymphocytes % 40.5 % [facility] Lymphocytes Abs 2.6 0.9 - 3.2 x10(3)/[facility] Monocytes % 8.9 % [facility] Monocyte Abs 0.6 0.3 - 0.9 x10(3)/[facility] Eosinophils % 3.3 % [facility] Eosinophils Abs 0.2 0.0 - 0.4 x10(3)/[facility] Basophils % 1.1 % [facility] Basophils Abs 0.1 0.0 - 0.1 x10(3)/[facility] Immature Gran % 0.30 % [facility] Comment: Immature granulocytes(IG's)percentage and absolute count will include metamyelocytes, myelocytes, and promyelocytes. Blood smears from CBCs yielding IG's will be scanned manually for concordance. If this scan disagrees with the automated IG or if promyelocytes are noted, a manual differential will be performed. Shonda Gran Abs 0.02 0.00 - 0.04 x10(3)/[facility] Blood 09/28/2022 3:49 AM EDT 09/28/2022 4:11 AM EDT Narrative Resulting Agency Comment Spec In Lab Vimal Holman MD HEMATOLOGY ORDERABLE S [facility] [place] [address] * (ABNORMAL) Hemogram (09/28/2022 3:49 AM EDT) [facility] WBC 6.4 4.0 - 9.5 x10(3)/[facility] RBC 4.37 4.00 - 5.21 x10(6)/[facility] Hemoglobin 13.7 11.7 - 15.5 g/dL [facility] Hematocrit 41.6 35.7 - 45.8 % [facility] MCV 95.2(H) 82.6 - 94.4 [facility] MCH 31.4 27.1 - 32.0 pg [facility] MCHC 32.9 31.7 - 35.0 g/dL [facility] Platelets 224 145 - 357 x10(3)/[facility] RDWSD 43.1 37.0 - 46.0 [facility] RDWCV 12.3 11.5 - 14.1 % [facility] MPV 11.3 7.6 - 12.9 [facility] nRBC % Auto 0.0 % [facility] nRBC Abs Auto 0.000 0.000 - 0.000 x10(3)/[facility] Blood 09/28/2022 3:49 AM EDT 09/28/2022 4:11 AM EDT Narrative Resulting Agency Comment Spec In Lab Vimal Holman MD HEMATOLOGY ORDERABLE S [facility] [place] [address] * (ABNORMAL) Troponin (09/28/2022 3:49 AM EDT) Pathologist [facility] Troponin-T HS 25(H) <=14 ng/L [facility] [...] can be found in the [facility] Test Catalog Troponin - [facility] Test Catalog Reference: Fourth Forman Definition of Myocardial Infarction. Journal of the Stateless College of Cardiology 2018;72:7922-8119 Blood 09/28/2022 3:49 AM EDT 09/28/2022 4:11 AM EDT Narrative Resulting Agency Comment Spec In Lab Susannah Gómez MD CHEMISTRY ORDERABLES [facility] [place] [address] * (ABNORMAL) Basic Metabolic Panel (non-fasting) (09/28/2022 3:49 AM EDT) Glucose Lvl 97 65 - 199 mg/dL [facility] Comment:Diabetes: >=200 mg/d L plus symptoms BUN 26(H) 8 - 18 mg/dL [facility] Creatinine 1.01 0.70 - 1.20 mg/dL [facility] Sodium 137 135 - 145 mmol/L [facility] Potassium 4.4 3.5 - 5.0 mmol/L [facility] Comment: Please note: ??Patients with WBC >100,000 may have falsely elevated Potassium levels. ??For accurate Potassium quantification in these patients send serum separator tube (gold top) for subsequent determinations. ??Contact the Clinical Chemistry Laboratory if there are any questions. Chloride 108(H) 98 - 107 mmol/L [facility] CO2 18(L) 22 - 31 mmol/L [facility] Anion Gap 11 5 - 15 mmol/L [facility] Calcium 9.0 8.5 - 10.5 mg/dL [facility] Estimated GFR 67 >=60 mL/min/1. 73 m?? [facility] [...] In Lab Susannah Gómez MD CHEMISTRY ORDERABLES [facility] [place] [address] * XR Chest One View (09/28/2022 3:37 [...] have questions please contact the health career and technology education 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 ? Narrative 09/28/2022 8:27 AM EDT EXAMINATION: XR [...] who have questions please contactthe health career and technology education 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 Susannah Gómez MD IMG DX ORDERABLES * EKG 12 Lead (09/28/2022 3:11 AM EDT) Ventricular rate 45 BPM MUSE SYSTEM Atrial Rate 45 BPM MUSE SYSTEM P-R Interval 196 ms MUSE SYSTEM QRS Duration 90 ms MUSE SYSTEM Q-T Interval 554 ms MUSE SYSTEM QTC Calculated (Bezet) 479 ms MUSE SYSTEM Calculated P Madison 33 degrees MUSE SYSTEM Calculated R Madison 28 degrees MUSE SYSTEM Calculated T Madison 58 degrees MUSE SYSTEM INTERPRETATION Sinus bradycardia Nonspecific ST and T wave abnormality Abnormal ECG When compared with ECG of 26-SEP-2022 17:33, QT has lengthened Confirmed by fellow Vaishnavi Pratt ([id number]) on 09/28/2022 9:30:13 AM Confirmed by MD [...] 1970 ? Height: 163 cm ? Account: [id number] Age: 52 yrs ? Weight: 102 kg Gender: Female ?BSA: 2.1 m2 Ordering Physician: SUSANNAH GÓMEZ Referring Physician: SUSANNAH GÓMEZ Performed By: HAIM Arnold Reason For Study: NSTEMI Exam Location: [facility]. Interpretation Summary - Left ventricular systolic [...] 12/31/21, there is no significant change. Procedure Complete-[id number]. Image enhancement Optison was used for left [...] Location: : 1970 Height: 163 cm Account: [id number] Age: 52 yrs Weight: 102 kg Gender: Female BSA: 2.1 m2 Ordering Physician: SUSANNAH GÓMEZ Referring Physician: SUSANNAH GÓMEZ Performed By: HAIM Arnold Reason For Study: NSTEMI Exam Location: [facility]. Interpretation Summary - Left ventricular systolic [...] on 12/31/21, there is nosignificant change. Procedure Complete-[id number]. Image enhancement Optison was used for left [...] 3:07 AM EDT) Neutrophils % 49.4 % [facility] Neutr Abs (ANC) 3.02 1.70 - 6.10 x10(3)/[facility] Lymphocytes % 36.4 % [facility] Lymphocytes Abs 2.2 0.9 - 3.2 x10(3)/[facility] Monocytes % 10.3 % [facility] Monocyte Abs 0.6 0.3 - 0.9 x10(3)/[facility] Eosinophils % 3.0 % [facility] Eosinophils Abs 0.2 0.0 - 0.4 x10(3)/[facility] Basophils % 0.7 % [facility] Basophils Abs 0.0 0.0 - 0.1 x10(3)/[facility] Immature Gran % 0.20 % [facility] Comment: Immature granulocytes(IG's)percentage and absolute count will include metamyelocytes, myelocytes, and promyelocytes. Blood smears from CBCs yielding IG's will be scanned manually for concordance. If this scan disagrees with the automated IG or if promyelocytes are noted, a manual differential will be performed. Shonad Gran Abs 0.01 0.00 - 0.04 x10(3)/[facility] Blood 09/27/2022 3:07 AM EDT 09/27/2022 3:18 AM EDT Narrative Resulting Agency Comment Spec In Lab Vimal Holman MD HEMATOLOGY ORDERABLE S [facility] [place] [address] * (ABNORMAL) Hemogram (09/27/2022 3:07 AM EDT) WBC 6.1 4.0 - 9.5 x10(3)/[facility] RBC 4.20 4.00 - 5.21 x10(6)/[facility] Hemoglobin 13.3 11.7 - 15.5 g/dL [facility] Hematocrit 40.9 35.7 - 45.8 % [facility] MCV 97.4(H) 82.6 - 94.4 fL [facility] MCH 31.7 27.1 - 32.0 pg [facility] MCHC 32.5 31.7 - 35.0 g/dL [facility] Platelets 223 145 - 357 x10(3)/[facility] RDWSD 45.0 37.0 - 46.0 [facility] RDWCV 12.7 11.5 - 14.1 % [facility] MPV 10.5 7.6 - 12.9 [facility] nRBC % Auto 0.0 % [facility] nRBC Abs Auto 0.000 0.000 - 0.000 x10(3)/[facility] Blood 09/27/2022 3:07 AM EDT 09/27/2022 3:18 AM EDT Narrative Resulting Agency Comment Spec In Lab Vimal Holman MD HEMATOLOGY ORDERABLE S Performing Organization Address City/[facility]/ZIP Co de Phone Number [facility] [place] [address] * (ABNORMAL) Troponin (09/27/2022 3:07 AM EDT) Troponin-T HS 30(H) <=14 ng/L [facility] [...] can be found in the [facility] Test Catalog Troponin - [facility] Test Catalog Reference: Fourth Forman Definition of Myocardial Infarction. Journal of the Stateless College of Cardiology 2018;72:5089-5586 Blood 09/27/2022 3:07 AM EDT 09/27/2022 3:18 AM EDT Narrative Resulting Agency Comment Spec In Lab Susannah Gómez MD CHEMISTRY ORDERABLES Performing Organization Address City/[facility]/ZIP Co de Phone Number [facility] [place] [address] * (ABNORMAL) Basic Metabolic Panel (non-fasting) (09/27/2022 3:07 AM EDT) Glucose Lvl 88 65 - 199 mg/dL [facility] Comment:Diabetes: >=200 mg/d L plus symptoms BUN 31(H) 8 - 18 mg/dL [facility] Creatinine 1.19 0.70 - 1.20 mg/dL [facility] Sodium 138 135 - 145 mmol/L [facility] Potassium 4.3 3.5 - 5.0 mmol/L [facility] Comment: Please note: ??Patients with WBC >100,000 may have falsely elevated Potassium levels. ??For accurate Potassium quantification in these patients send serum separator tube (gold top) for subsequent determinations. ??Contact the Clinical Chemistry Laboratory if there are any questions. Chloride 108(H) 98 - 107 mmol/L [facility] CO2 18(L) 22 - 31 mmol/L [facility] Anion Gap 12 5 - 15 mmol/L [facility] Calcium 8.9 8.5 - 10.5 mg/dL [facility] [...] In Lab Susannah Gómez MD CHEMISTRY ORDERABLES [facility] [place] [address] * Hemoglobin A1c (09/27/2022 3:07 AM EDT) Hemoglobin A1C 5.6 4.3 - 5.6 % [facility] Comment: Reference Range: 4.3 [...] 1, S67-74 Est Avg Gluc 114 mg/dL [facility] Comment: eAG equivalents for [...] into estimated average glucose values. ??Diabetes Care 2008:31(8):6564-3872. Blood 09/27/2022 3:07 AM EDT 09/27/2022 3:18 AM EDT Narrative Resulting Agency Comment Spec In Lab Susannah Gómez MD CHEMISTRY ORDERABLES [facility] [place] [address] * Lipid Panel (Reflex Direct LDL) (09/27/2022 3:07 AM EDT) Chol, Total 228 mg/dL [facility] Comment: Lower Risk: <200 mg/dL Average Risk: 200-239 mg/dL Higher Risk: >iz=171 mg/dL Triglycerides 221 mg/dL [facility] Comment: Average Risk/Lower Risk: <150 mg/dL Borderline High Risk: 150-199 mg/dL High Risk: 200-499 mg/dL Very High Risk: >bv=965 mg/dL HDL 33 mg/dL [facility] Comment: Males: ?? Higher Risk: <40 mg/dL Females: ?? Higher Risk: <50 mg/dL LDL Cholesterol 151 mg/dL [facility] Comment: Lowest Risk: <100 mg/dL Lower Risk: 100-129 mg/dL Borderline High Risk: 130-159 mg/dL High Risk: 160-189 mg/dL Very High Risk: >zn=023 mg/dL Chol/HDL Ratio 6.9 ratio [facility] Lipid Interpretation See Note [facility] Comment: Lipid management should be guided by a patient? s ASCVD risk, goals and preferences. ACC/AHA Guidelines recommend high intensity statin if clinical ASCVD or LDL greater than or equal to 190 mg/dL. http://PingStampurl.com/DPJ-MNV-Ktzvpbzzs Adults aged 40-75 with LDL 70-189 mg/dL should have their 10 year ASCVD risk estimated with the ACC/AHA ASCVD risk production estimator http://tools.acc.org/YCYDD-Zais-Ojscistbq/ Statin should be discussed if risk greater [...] In Lab Susannah Gómez MD CHEMISTRY ORDERABLES [facility] [place] [address] * (ABNORMAL) Troponin (09/26/2022 8:55 PM EDT) Troponin-T HS 35(H) <=14 ng/L [facility] [...] can be found in the [facility] Test Catalog Troponin - [facility] Test Catalog Reference: Fourth Forman Definition of Myocardial Infarction. Journal of the Stateless College of Cardiology 2018;72:6901-0894 Blood 09/26/2022 8:55 PM EDT 09/26/2022 8:59 PM EDT Narrative Resulting Agency Comment Spec In Lab Susannah Gómez MD CHEMISTRY ORDERABLES [facility] [place] [address] * Gold Tube HOLD (09/26/2022 5:50 PM EDT) Gold Hold Sample in lab. [facility] Blood Venous Draw / Unknown 09/26/2022 5:50 PM EDT 09/26/2022 6:13 PM EDT Vimal Holman MD CHEMISTRY ORDERABLES Performing Organization Address City/[facility]/ZIP Co de Phone Number [facility] [place] [address] * Differential, Automated (09/26/2022 5:50 PM EDT) Neutrophils % 53.9 % [facility] Neutr Abs (ANC) 2.93 1.70 - 6.10 x10(3)/[facility] Lymphocytes % 34.3 % [facility] Lymphocytes Abs 1.9 0.9 - 3.2 x10(3)/[facility] Monocytes % 8.3 % [facility] Monocyte Abs 0.4 0.3 - 0.9 x10(3)/[facility] Eosinophils % 2.4 % [facility] Eosinophils Abs 0.1 0.0 - 0.4 x10(3)/[facility] LABORATORY Basophils % 0.7 % [facility] LABOR[facility]ORY Basophils Abs 0.0 0.0 - 0.1 x10(3)/[facility] LABORATORY Immature Gran % 0.40 % [facility] Comment: Immature granulocytes(IG's)percentage and absolute count will include metamyelocytes, myelocytes, and promyelocytes. Blood smears from CBCs yielding IG's will be scanned manually for concordance. If this scan disagrees with the automated IG or if promyelocytes are noted, a manual differential will be performed. Shonda Gran Abs 0.02 0.00 - 0.04 x10(3)/[facility] LABORATORY Blood 09/26/2022 5:50 PM EDT 09/26/2022 6:12 PM EDT Narrative Resulting Agency Comment Spec In Lab Vimal Holman MD HEMATOLOGY ORDERABLE S [facility] [place] [address] * Hemogram (09/26/2022 5:50 PM EDT) WBC 5.4 4.0 - 9.5 x10(3)/[facility] LABORATORY RBC 4.58 4.00 - 5.21 x10(6)/[facility] LABORATORY Hemoglobin 14.5 11.7 - 15.5 g/dL [facility] Hematocrit 42.4 35.7 - 45.8 % [facility] MCV 92.6 82.6 - 94.4 fL [facility] MCH 31.7 27.1 - 32.0 pg [facility] MCHC 34.2 31.7 - 35.0 g/dL [facility] Platelets 182 145 - 357 x10(3)/[facility] LABORATORY RDWSD 43.2 37.0 - 46.0 [facility] LABORATORY RDWCV 12.6 11.5 - 14.1 % [facility] MPV 11.3 7.6 - 12.9 fL [facility] nRBC % Auto 0.0 % [facility] nRBC Abs Auto 0.000 0.000 - 0.000 x10(3)/[facility] LABORATORY Blood 09/26/2022 5:50 PM EDT 09/26/2022 6:12 PM EDT Narrative Resulting Agency Comment Spec In Lab Vimal Holman MD HEMATOLOGY ORDERABLE S [facility] [place] [address] * (ABNORMAL) Basic Metabolic Panel (non-fasting) (09/26/2022 5:50 PM EDT) Glucose Lvl 81 65 - 199 mg/dL [facility] Comment:Diabetes: >=200 mg/d L plus symptoms BUN 28(H) 8 - 18 mg/dL [facility] Creatinine 1.02 0.70 - 1.20 mg/dL [facility] [...] mmol/L [facility] Anion Gap 13 5 - 15 mmol/L [facility] Calcium 9.0 8.5 - 10.5 mg/dL [facility] Estimated GFR 66 >=60 mL/min/1. 73 m?? [facility] [...] Gómez MD CHEMISTRY ORDERABLES Performing Organization Address City/[facility]/ZIP Co de Phone Number [facility] [place] [address] * Magnesium (09/26/2022 5:50 PM EDT) Magnesium 0.89 0.69 - 1.07 mmol/L [facility] Blood 09/26/2022 5:50 PM EDT 09/26/2022 6:12 PM EDT Narrative Resulting Agency Comment Spec In Lab Susannah Gómez MD CHEMISTRY ORDERABLES Performing Organization Address [facility] Co de Phone Number [facility] [place] [address] * Calcium (09/26/2022 5:50 PM EDT) Calcium 9.0 8.5 - 10.5 mg/dL [facility] Blood 09/26/2022 5:50 PM EDT 09/26/2022 6:12 PM EDT Narrative Resulting Agency Comment Spec In Lab Susannah Gómez MD CHEMISTRY ORDERABLES Performing Organization Address [facility] Co de Phone Number [facility] [place] [address] * (ABNORMAL) Prothrombin Time (09/26/2022 5:50 PM EDT) PT 14.3(H) 9.4 - 12.5 sec [facility] INR 1.3 [facility] LABORATORY Comment: An INR <2.0 [...] MD HEMATOLOGY ORDERABLE S Performing Organization Address City/[facility]/ZIP Co de Phone Number [facility] [place] [address] * (ABNORMAL) APTT (09/26/2022 5:50 PM EDT) PTT 39(H) 25 - 37 sec [facility] Comment: The PTT is NOT appropriate for heparin monitoring. Use the Anti-Xa level for heparin monitoring (HEP UFH) or LMWH monitoring (HEP LMW). A PTT less than 37 seconds generally indicates adequate hemostasis. Blood 09/26/2022 5:50 PM EDT 09/26/2022 6:12 PM EDT Narrative Resulting Agency Comment Spec In Lab Susannah Gómez MD HEMATOLOGY ORDERABLE S Performing Organization Address [facility]/ZIP Co de Phone Number [facility] [place] [address] * (ABNORMAL) pro-Brain Natriuretic Peptide (09/26/2022 5:50 PM EDT) ProBNP 1,069(H) <=124 pg/mL [facility] Blood 09/26/2022 5:50 PM EDT 09/26/2022 6:12 PM EDT Narrative Resulting Agency Comment Spec In Lab Susannah Gómez MD CHEMISTRY ORDERABLES Performing Organization Address City/[facility]/ZIP Co de Phone Number [facility] [place] [address] * TSH (09/26/2022 5:50 PM EDT) TSH 3.02 0.27 - 4.20 mcIU/mL [facility] Comment: Reference Interval (mcIU/mL): Females: ??First Trimester: 0.23-3.88 ??Second Trimester: 0.22-3.90 ??Third Trimester: 0.44-4.66 Blood 09/26/2022 5:50 PM EDT 09/26/2022 6:12 PM EDT Narrative Resulting Agency Comment Spec In Lab Susannah Gómez MD CHEMISTRY ORDERABLES Performing Organization Address [facility] Co de Phone Number [facility] [place] [address] * EKG 12 Lead (09/26/2022 5:33 PM EDT) Ventricular rate 54 BPM MUSE SYSTEM Atrial Rate 54 BPM MUSE SYSTEM P-R Interval 180 ms MUSE SYSTEM QRS Duration 84 ms MUSE SYSTEM Q-T Interval 438 ms MUSE SYSTEM QTC Calculated (Bezet) 415 ms MUSE SYSTEM Calculated P Madison 20 degrees MUSE SYSTEM Calculated R [place] 21 degrees MUSE SYSTEM Calculated T Madison -28 degrees MUSE SYSTEM INTERPRETATION Sinus bradycardia ST & T wave abnormality, consider inferior ischemia Abnormal ECG When compared with ECG of 30-JUL-2022 09:33, T wave inversion now evident in Inferior leads Nonspecific T wave abnormality, worse in Anterolateral leads QT has shortened Confirmed by MD Hans, Oran ([id number]) on 10/02/2022 11:07:34 AM MUSE SYSTEM 09/26/2022 5:33 PM EDT 10/02/2022 11:07 AM EDT Unknown ECG ORDERABLES Performing Organization Address [facility] Co de Phone Number MUSE SYSTEM * CRP, acute inflammation (09/26/2022 5:01 PM EDT) CRP <3.0 <=4.9 mg/L [facility]ORAT[facility] Blood Venous Draw / Unknown 09/26/2022 5:01 PM EDT 09/26/2022 5:33 PM EDT Narrative Resulting Agency Comment Spec In Lab Paulo Ramachandran Jr., MD CHEMISTRY ORDEsther PONCE Performing Organization Address City/[facility]/ZIP Co de Phone Number [facility] [place] [address] * (ABNORMAL) Troponin (09/26/2022 5:01 PM EDT) Troponin-T HS 29(H) <=14 ng/L [facility] LABORATORY [...] can be found in the [facility] Test Catalog Troponin - [facility] Test Catalog Reference: Fourth Forman Definition of Myocardial Infarction. Journal of the [employer]eless College [employer] 2018;72:7858-7433 Blood 09/26/2022 5:01 PM EDT 09/26/2022 5:12 PM EDT Narrative Resulting Agency Comment Spec In Lab Susannah Gómez MD CHEMISTRY ORDERABLES Performing Organization Address [facility]/ZIP Co de Phone Number [facility] [place] [address] documented in this encounter Visit Diagnoses Diagnosis [...] Until Discontinued, Routine 2003 (Given - Provider: Kathleen Brown, ERWIN) 0847 (Given - Provider: Asya [...] Routine documented in this encounter Care Teams Merchandise Processor Relationship Specialty Start Date End Date Polo Pearce PA [address] [place] [address] PCP - General Internal Medicine 06/09/21 documented as of this encounter
--- OUTSIDE RECORDS SUMMARY | 2023-09-20 18:37 | XMS_ITS | Encounter Summary ---
[place] [address] Care Team Providers Care Public Works Inspector Name Role Phone Polo Pearce Primary Care Provider [phone] Reason for Referral * Diagnostic Test (Routine) - Closed Specialty Diagnoses / Procedures Referred By Jayant harris Referred To Contact Diagnoses Pulmonary embolism, unspecified chronicity, unspecified pulmonary embolism type, unspecified whether acute cor pulmonale present Procedures Duplex Study for DVT, Bilat legs Mamie Marx APRN [facility] [place] [address] [facility] Vascular Lab [address] [address] Referral ID Status Reason Start Date Expiration Date V isits Requested Visits Authorized [id number] Closed Specialty Service Requested 07/31/2022 07/31/2023 1 1 Encounter Details Date Type Department Care Team (Late st Contact Info) Description 07/31/2022 Orders [place] [phone] Mamie Marx APRN [facility] [place] [address] Pulmonary embolism, unspecified chronicity, unspecified pulmonary embolism [...] Tech Visit Vascular Lab at [place] [phone] Jose Cook 10/08/2023 9:30 AM EDT Office Visit Vascular Surgery at [place] [phone] MD [facility] [place] [address] 10/21/2023 10:30 AM EDT Appointment Nuclear Medicine at [place] [phone] Mary Reyes [facility] [place] [address] 10/21/2023 11:30 AM EDT Appointment Nuclear Medicine at [place] [phone] Mary Reyes [facility] [place] [address] 10/21/2023 12:30 PM EDT Appointment [place] [phone] Mary Reyes [facility] [place] [address] 10/21/2023 1:30 PM EDT Appointment [place] [address] Mary Reyes APRN [facility] [place] [address] 10/21/2023 2:30 PM EDT Appointment [place] [address] Mary Reyes APRN [facility] [place] [address] 10/26/2023 4:00 PM EDT Office Visit Cardiology at [address] [phone] Jaspreet Kinsey MD [facility] [address] 10/28/2023 9:00 AM EDT Office Visit [place] [address] 10/29/2023 10:00 AM EDT Clinical Support [place] [address] 10/29/2023 10:15 AM EDT Procedure visit [place] [address] 11/01/2023 5:00 PM EDT Office [place] [address] Selene Browning, PhD [facility] [place] [address] 11/22/2023 4:40 PM EDT Office Visit Cardiology at [address] [phone] Porsha Mcdaniels MD [facility] [place] [address] 12/13/2023 10:00 AM EDT Clinical Support Gastroenterology at [facility] [place] [address] [facility] [place] [address] documented as of this encounter Results * Duplex Study for DVT, Bilat legs (10/20/2022 8:06 AM EDT) VB Text Report Department: Vascular Surgery Lab Patient: [id number] (LOIDA ROQUE) CPT: 55236 Referring Physician: MAMIE MARX ?? Phone: Indications: [...] present documented in this encounter Care Teams Public Works Inspector Relationship Specialty Start Date End Date Polo Pearce PA [address] [facility] 1 [place] [address] PCP - General Internal Medicine 06/09/21 documented as of this encounter
--- OUTSIDE RECORDS SUMMARY | 2023-09-20 18:37 | XMS_ITS | Encounter Summary ---
Author Organization [facility] Address [facility] [place] [address] Care Team Providers Care Watershed Manager Name Role Phone Polo Pearce Primary Care Provider [phone] Reason for Visit * Reason Comments Medication Refill Encounter Details Date Type Department Care Team (Late st Contact Info) Description 07/24/2022 Refill Cardiology at [address] [phone] Deja Zaidi PA [facility] [place] [address] Medication Refill Social History Tobacco Use Types [...] AM EDT Tech [place] [phone] Jose Cook 10/08/2023 9:30 AM EDT Office [place] [address] Thiago Miller MD [facility] [place] [address] 10/21/2023 10:30 AM EDT Appointment Nuclear Medicine at [address]1000 Mary Reyes [facility] [place] [address] 10/21/2023 11:30 AM EDT Appointment Nuclear Medicine at [address] Mary Reyes [facility] [place] [address] 10/21/2023 12:30 PM EDT Appointment Nuclear Medicine at [place] [phone] Mary Reyes [facility] [place] [address] 10/21/2023 1:30 PM EDT Appointment [place] [phone] Mary Reyes [facility] [place] [address] 10/21/2023 2:30 PM EDT Appointment [place] [phone] Mary Reyes [facility] [place] [address] 10/26/2023 4:00 PM EDT Office Visit Cardiology at [address] [phone] Jaspreet Kinsey MD [facility] [place] [address] 10/28/2023 9:00 AM EDT Office Visit [place] [address] 10/29/2023 10:00 AM EDT Clinical Support [place] [address] 10/29/2023 10:15 AM EDT Procedure visit [place] [address] 11/01/2023 5:00 PM EDT Office Visit Gastroenterology at [place] [phone] Selene Browning, PhD [facility] [place] [address] 11/22/2023 4:40 PM EDT Office Visit Cardiology at [address] [address] Porsha Mcdaniels MD [facility] [place] [address] 12/13/2023 10:00 AM EDT Clinical [place] [phone] Lucero Romero, ALVA [facility] [place] [address] documented as of this encounter Visit Diagnoses Diagnosis Chronic heart failure with preserved ejection fraction documented in this encounter Care Teams Watershed Manager Relationship Specialty Start Date End Date Polo Pearce PA [address] [place] [address] PCP - General Internal Medicine 06/09/21 documented as of this encounter
--- OUTSIDE RECORDS SUMMARY | 2023-09-20 18:37 | XMS_ITS | Encounter Summary ---
Author Organization [facility] [place] [address] Care Team Providers Care Him Analyst Name Role Phone Polo Pearce Primary Care Provider [phone] Reason for Visit * Consultation (Routine) - Closed Specialty Diagnoses / Procedures Referred By Jayant harris Referred To Contact Vascular Surgery Diagnoses Pulmonary embolism, unspecified chronicity, unspecified pulmonary embolism type, unspecified whether acute cor pulmonale present ROUTINE, SALVATORE, BLE DVT Vascular medicine PE clinic: seemingly unprovoked small PE. review consideration of hypercoagulability testing Jaspreet Kinsey MD [facility] [place] [address] Elvin Maya MD [facility] CARDIOLOGY [place] [address] Referral ID Status Reason Start Date Expiration Date V isits Requested Visits Authorized [id number] Closed Consult, Test & Treat 07/30/2022 07/30/2023 1 1 Encounter Details Date Type Department Care Team (Late st Contact Info) Description 10/20/2022 9:00 AM EDT Office Visit [place] [address] Umberto Abbott MD [facility] CARDIOLOGY DEPT [place] [phone] Pulmonary embolism, unspecified chronicity, unspecified pulmonary embolism [...] from the original note were not included. [facility] [place] [address] VASCULAR MEDICINE CLINIC NOTE PRIMARY CARE PROVIDER: JOCY Franco REFERRING PROVIDER: Jaspreet Kinsey PROBLEM LIST: Patient Active Problem List Diagnosis Pulmonary embolus 07/2022: right upper lobe. Started on eliquis 08/2022 TTE ([facility]): normal bi-v s/f. 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 Kinsey, and he had uptitrated her [...] Vascular Clinic as needed. Sindhu Santo MD Supervisor Sound Technician, PGY5 #[id number] Cardiovascular Medicine Attending I have interviewed and [...] AM EDT Tech Visit Vascular Lab at [place] [phone] Jose Cook 10/08/2023 9:30 AM EDT Office Visit Vascular Surgery at [place] [phone] MD [facility] [place] [address] 10/21/2023 10:30 AM EDT Appointment Nuclear Medicine at [address] [facility] [place] [address] 10/21/2023 11:30 AM EDT Appointment Nuclear Medicine at [place] [phone] [facility] GASTROENTER[place] [address] 10/21/2023 12:30 PM EDT Appointment Nuclear Medicine at [place] [phone] [facility] GASTROENTER[place] [address] 10/21/2023 1:30 PM EDT Appointment [place] [phone] Mary Reyes SCORER HELPER [facility] [place] [address] 10/21/2023 2:30 PM EDT Appointment [place] [phone] Mary Reyes SCORER HELPER [facility] GASTROENTERS[place] [address] 10/26/2023 4:00 PM EDT Office Visit Cardiology at [address] [phone] Jaspreet Kinsey MD [facility] [address] 10/28/2023 9:00 AM EDT Office [place] [address] 10/29/2023 10:00 AM EDT Clinical [place] [address] 10/29/2023 10:15 AM EDT Procedure [place] [address] 11/01/2023 5:00 PM EDT Office Visit [place] [phone] Selene Browning, PhD [facility] [place] [address] 11/22/2023 4:40 PM EDT Office Visit Cardiology at [address] [phone] Porsha Mcdaniels MD [facility] [place] [place] [address] 12/13/2023 10:00 AM EDT Clinical Support [place] [address] Lucero Romero, ALVA [facility] [place] [address] documented as of this encounter Visit Diagnoses Diagnosis Pulmonary embolism, unspecified chronicity, unspecified pulmonary embolism type, unspecified whether acute cor pulmonale present- Primary PAF (paroxysmal atrial fibrillation) Atrial fibrillation documented in this encounter Care Teams Him Analyst Relationship Specialty Start Date End Date Polo Pearce PA [address] [place] [address] PCP - General Internal Medicine 06/09/21 documented as of this encounter
--- OUTSIDE RECORDS SUMMARY | 2023-09-20 18:37 | XMS_ITS | Encounter Summary ---
Author Organization [facility] [place] [address] Care Team Providers Care Book Binder Name Role Phone Polo Pearce Primary Care Provider [phone] Encounter Details Date Type Department Care Team (Late st Contact Info) Description 08/31/2022 [place] [address] Social History Tobacco Use Types Packs/Day Years [...] AM EDT Tech [place] [phone] Jose Cook 10/08/2023 9:30 AM EDT Office [place] [phone] MD [facility] [place] [address] 10/21/2023 10:30 AM EDT Appointment Nuclear [place] [address] Mary Reyes [facility] [place] [address] 10/21/2023 11:30 AM EDT Appointment Nuclear Medicine at [address]1000 Mary Reyes [facility] [address] 10/21/2023 12:30 PM EDT Appointment Nuclear Medicine at [address]1000 Mary Reyes [facility] [address] 10/21/2023 1:30 PM EDT Appointment [place] [address] Mary Reyes [facility] [address] 10/21/2023 2:30 PM EDT Appointment [place] [address] Mary Reyes [facility] [address] 10/26/2023 4:00 PM EDT Office Visit Cardiology at [address] [phone] Jaspreet Kinsey MD [facility] [place] [address] 10/28/2023 9:00 AM EDT Office Visit [place] [address] 10/29/2023 10:00 AM EDT Clinical Support [place] [address] 10/29/2023 10:15 AM EDT Procedure visit [place] [address] 11/01/2023 5:00 PM EDT Office Visit Gastroenterology at [place] [phone] Selene Browning, PhD [facility] [place] [address] 11/22/2023 4:40 PM EDT Office Visit Cardiology at [address] [phone] Porsha Mcdaniels MD [facility] [place] [address] 12/13/2023 10:00 AM EDT Clinical Support Gastroenterology at [place] [phone] Lucero Romero, RD [facility] [place] [address] documented as of this encounter Procedures Procedure Name Priority Date/Time Associated Diagnosis Comments ECG SCAN Routine 08/31/2022 2:00 PM EDT documented in this encounter Results * Scan Doc: ECG (08/31/2022 2:00 PM EDT) Historical Provider MD LONNIE PRAKASH SCAN EX T ORDR/RSLT documented in this encounter Visit Diagnoses Not on filedocumented in this encounter Care Teams Book Binder Relationship Specialty Start Date End Date Polo Pearce PA [address] [place] [address] PCP - General Internal Medicine 06/09/21 documented as of this encounter
--- OUTSIDE RECORDS SUMMARY | 2023-09-20 18:37 | XMS_ITS | Encounter Summary ---
Author Organization [facility] Address [facility] [place] [address] Care Team Providers Care Optometrist President/Practice Owner Name Role Phone Polo Pearce Primary Care Provider [phone] Encounter Details Date Type Department Care Team (Late st Contact Info) Description 06/24/2022 Telephone Cardiology at [address] [place] [address] Jaspreet Kinsey [place] [address] Social History Tobacco Use Types Packs/Day Years [...] Aide Glass - 06/30/2022 11:54 AM EDT [facility] is faxing over her ER visits [...] Best # to reach her is work [phone] documented in this encounter Plan of Treatment Upcoming Encounters Date Type Department Care Team (Late st Contact Info) Description 10/08/2023 8:30 AM EDT Tech Visit [place] [phone] Jose Cook 10/08/2023 9:30 AM EDT Office Visit [place] [phone] MD [facility] [place] [address] 10/21/2023 10:30 AM EDT Appointment [place] [phone] Mary Reyes APRN [facility] [place] [address] 10/21/2023 11:30 AM EDT Appointment [place] [address] Mary Reyes, [facility] [place] [address] 10/21/2023 12:30 PM EDT Appointment [place] [address] Mary Reyes, [facility] [place] [address] 10/21/2023 1:30 PM EDT Appointment [place] [address] Mary Reyes, [facility] [place] [address] 10/21/2023 2:30 PM EDT Appointment [place] [address] Mary Reyes, [facility] [place] [address] 10/26/2023 4:00 PM EDT Office Visit Cardiology at [address] [phone] Jaspreet Kinsey MD [facility] [place] [address] 10/28/2023 9:00 AM EDT Office [place] [address] 10/29/2023 10:00 AM EDT Clinical Support [place] [address] 10/29/2023 10:15 AM EDT Procedure [place] [address] 11/01/2023 5:00 PM EDT Office Visit Gastroenterology at [place] [phone] Selene Browning, PhD [facility] [place] [address] 11/22/2023 4:40 PM EDT Office [place] [address] Porsha Mcdaniels MD [facility] [place] [address] 12/13/2023 10:00 AM EDT Clinical Support [place] [address] Lucero Romero, [place] [facility] [place] [address] documented as of this encounter Visit Diagnoses Not on filedocumented in this encounter Care Teams Optometrist President/Practice Owner Relationship Specialty Start Date End Date Polo Pearce PA [address] [place] [address] PCP - General Internal Medicine 06/09/21 documented as of this encounter
--- OUTSIDE RECORDS SUMMARY | 2023-09-20 18:37 | XMS_ITS | Encounter Summary ---
Author Organization Count Includes [facility] Address [facility] [place] [address] Care Team Providers Care It Systems Manager Name Role Phone Polo Pearce Primary Care Provider [phone] Encounter Details Date Type Department Care Team (Late st Contact Info) Description 04/16/2022 Refill Cardiology at [address] [place] [address] Jaspreet Kinsey MD [place] [address] Social History Tobacco Use Types Packs/Day Years [...] ??Order for CCTA placed by Dr. Kinsey. [facility] will contact you for scheduling. * Telephone [...] her tocontinue on this. Phone # Is [phone] documented in this encounter Plan of Treatment Upcoming Encounters Date Type Department Care Team (Late st Contact Info) Description 10/08/2023 8:30 AM EDT Tech Visit Vascular Lab at [place] [phone] Jose Cook 10/08/2023 9:30 AM EDT Office [place] [phone] MD [facility] [place] [address] 10/21/2023 10:30 AM EDT Appointment Nuclear Medicine at [place] [phone] Mary Reyes CONSULTING SALES EXECUTIVE [facility] [place] [address] 10/21/2023 11:30 AM EDT Appointment [place] [phone] Mary Reyes [facility] [place] [address] 10/21/2023 12:30 PM EDT Appointment [place] [address] Mary Reyes CONSULTING SALES EXECUTIVE [facility] [place] [address] 10/21/2023 1:30 PM EDT Appointment [place] [phone] Mary Reyes CONSULTING SALES EXECUTIVE [facility] [place] [address] 10/21/2023 2:30 PM EDT Appointment [place] [address] Mary Reyes, [facility] [place] [address] 10/26/2023 4:00 PM EDT Office Visit Cardiology at [address] [phone] Jaspreet Kinsey MD [facility] [place] [address] 10/28/2023 9:00 AM EDT Office Visit [place] [address] 10/29/2023 10:00 AM EDT Clinical Support [place] [address] 10/29/2023 10:15 AM EDT Procedure visit [place] [address] 11/01/2023 5:00 PM EDT Office [place] [address]-1000 Selene Browning, PhD [facility] [place] [address] 11/22/2023 4:40 PM EDT Office Visit Cardiology at [address] [phone] Porsha Mcdaniels MD [facility] [place] [address] 12/13/2023 10:00 AM EDT Clinical [place] [phone] [facility] [place] [address] documented as of this encounter Visit Diagnoses Diagnosis Chronic heart failure with preserved ejection fraction Chest pain, unspecified type documented in this encounter Care Teams It Systems Manager Relationship Specialty Start Date End Date Polo Pearce PA [address] [place] [address] PCP - General Internal Medicine 06/09/21 documented as of this encounter
--- OUTSIDE RECORDS SUMMARY | 2023-09-20 18:37 | XMS_ITS | Encounter Summary ---
Author Organization [facility] Address [facility] [place] [address] Care Team Providers Care Lumber Chain Offbearer Name Role Phone Polo Perace Primary Care Provider [phone] Reason for Visit * Reason Comments Congestive Heart Failure HFpEF Encounter Details Date Type Department Care Team (Late st Contact Info) Description 10/08/2022 4:00 PM EDT Office Visit Cardiology at [address] [address] Jaspreet Kinsey MD [facility] [place] [address] Pulmonary embolism, unspecified chronicity, unspecified pulmonary embolism [...] through Care Everywhere. * Low Sodium Diet (Austrian) * Low Sodium Foods: General Info (Austrian) documented in this encounter Progress Notes * Jaspreet Kinsey MD - 10/08/2022 4:00 PM EDT Images from the original note were not included. Subjective: Patient ID: Indira oRque is a 52 y.o. female who presents on follow-up for: Chief Complaint Patient presents with Congestive Heart Failure HFpEF HPI Last seen by me 07/2022, at which time TTE was obtained to evaluate right sided structures due to the recent PE. It was unremarkable. PA pressure could not be estimated Intercurrently, patient was admitted to [facility] 09/2022. She presented after developing acute worseningof [...] 30 DAYS fluticasone propionate (FLONASE) 50 mcg/actuation [place], Suspension 1 spray, Each Nare, DAILY gabapentin [...] preserved ejection fraction 05/2021: subacute, presented to [facility] with RUQ pain, weight gain, and [...] AM EDT Tech [place] [address]-1000 Jose Cook 10/08/2023 9:30 AM EDT Office [place] [phone] MD [facility] [place] [place] [address] 10/21/2023 10:30 AM EDT Appointment [place] [address] [address] Re[address] [facility] [place] [address] 10/21/2023 11:30 AM EDT Appointment [place] [address] Mary Reyes [facility] [place] [address] 10/21/2023 12:30 PM EDT Appointment [place] [address] Mary Reyes SALES SERVICE REPRESENTATIVE [facility] [place] [address] 10/21/2023 1:30 PM EDT Appointment Nuclear Medicine at [place] [phone] Mayr Reyes [facility] [place] [address] 10/21/2023 2:30 PM EDT Appointment [place] [address]-1000 Mary Reyes [facility] [place] [address] 10/26/2023 4:00 PM EDT Office Visit Cardiology at [address] [phone] Jaspreet Kinsey MD [facility] [place] [address] 10/28/2023 9:00 AM EDT Office Visit [place] [address] 10/29/2023 10:00 AM EDT Clinical Support [place] [address] 10/29/2023 10:15 AM EDT Procedure visit [place] [address] 11/01/2023 5:00 PM EDT Office Visit [place] [address] Selene Browning, PhD [facility] [place] [address] 11/22/2023 4:40 PM EDT Office Visit Cardiology at [address] [address] Porsha Mcdaniels MD [facility] [address] 12/13/2023 10:00 AM EDT Clinical [place] [address]-[address] [facility] [place] [address] documented as of this encounter Visit Diagnoses Diagnosis Pulmonary embolism, unspecified chronicity, unspecified pulmonary embolism type, unspecified whether acute cor pulmonale present Heart failure with preserved ejection fraction, unspecified HF chronicity Chronic heart failure with preserved ejection fraction documented in this encounter Care Teams Lumber Chain Offbearer Relationship Specialty Start Date End Date Polo Pearce PA [address] [place] [address] PCP - General Internal Medicine 06/09/21 documented as of this encounter
--- OUTSIDE RECORDS SUMMARY | 2023-09-20 18:37 | XMS_ITS | Encounter Summary ---
[place] [address] Care Team Providers Care Rail Operations Controller Name Role Phone Polo Pearce Primary Care Provider [phone] Encounter Details Date Type Department Care Team (Late st Contact Info) Description 10/20/2022 8:00 AM EDT Tech [place] [address]1000 [address]orencia [place], [place] Pulmonary embolism, unspecified chronicity, [...] AM EDT Tech [place] [address]-1000 Jose Cook 10/08/2023 9:30 AM EDT Office [place] [address]-[address] MD [facility] [place] [address] 10/21/2023 10:30 AM EDT Appointment Nuclear Medicine at [place] [phone] Mary Reyes, [facility] [place] [address] 10/21/2023 11:30 AM EDT Appointment [place] [address] Mary Reyes [facility] [place] [address] 10/21/2023 12:30 PM EDT Appointment [place] [address]-1000 Mary Reyes [facility] [place] [address] 10/21/2023 1:30 PM EDT Appointment [place] [address]-1000 Mary Reyes [facility] [place] [address] 10/21/2023 2:30 PM EDT Appointment [place] [address]-1000 Mary Reyes [facility] [place] [address] 10/26/2023 4:00 PM EDT Office Visit Cardiology at [address] [phone] Jaspreet Kinsey MD [facility] [place] [address] 10/28/2023 9:00 AM EDT Office [place] [address] 10/29/2023 10:00 AM EDT Clinical [place] [address] 10/29/2023 10:15 AM EDT Procedure [place] [address] 11/01/2023 5:00 PM EDT Office Visit Gastroenterology at [place] [phone] Selene Browning, PhD [facility] [address] [place] [place] [phone] 11/22/2023 4:40 PM EDT Office Visit Cardiology at [address] [phone] Porsha Mcdaniels MD [facility] [place] [address] 12/13/2023 10:00 AM EDT Clinical [place] [address]-[address] [facility] [place] [address] documented as of this encounter Procedures Procedure [...] (Bezet) 525 ms MUSE SYSTEM Calculated R Dighton 41 degrees MUSE SYSTEM Calculated T Dighton 40 degrees MUSE SYSTEM INTERPRETATION Atrial fibrillation Nonspecific ST and T wave abnormality Prolonged QTc Abnormal ECG When compared with ECG of 08-OCT-2022 16:19, Atrial fibrillation has replaced Sinus rhythm Vent. rate has increased BY ??34 BPM Nonspecific T wave abnormality, improved in Inferior leads QT has lengthened I personally reviewed the tracing and edited the fellows interpretation Confirmed by fellow Otis Rader ([id number]) on 10/20/2022 3:03:05 PM Confirmed by MD Hans, Porsha ([id number]) on 10/20/2022 7:08:19 PM MUSE SYSTEM 10/20/2022 10:0 3 AM EDT 10/20/2022 7:08 PM EDT Unknown ECG ORDERABLES MUSE SYSTEM * Duplex Study for DVT, Bilat legs (10/20/2022 8:06 AM EDT) Pathologist [facility] VB Text Report Department: Vascular Surgery Lab Patient: [id number] (LOIDA ROQUE) CPT: 17323 Referring Physician: MAMIE MARX ?? Phone: Indications: [...] present documented in this encounter Care Teams Rail Operations Controller Relationship Specialty Start Date End Date Polo Pearce PA [address] [place] [address] PCP - General Internal Medicine 06/09/21 documented as of this encounter
--- OUTSIDE RECORDS SUMMARY | 2023-09-20 18:37 | XMS_ITS | Encounter Summary ---
Author Organization [facility] Address [facility] [place] [address] Care Team Providers Care Bisque Tile Burner Name Role Phone Polo Pearce Primary Care Provider [phone] Encounter Details Date Type Department Care Team (Late st Contact Info) Description 07/28/2022 Telephone Cardiology at [address] [place] [address] Jaspreet Kinsey MD [facility] [place] [address] Social History Tobacco Use Types Packs/Day Years [...] and would like a call back @ [phone] * Telephone Encounter - Nilda Mayes, RN - 07/28/2022 10:57 AM EDT Indira says she is being discharged to home from [facility] today. Home diuretic therapy isn't working well. When I'm in the hospital, it really comes down again. She asks if the fluid pill needs to be changed. Plan: to request discharge records from [facility] when available. * Telephone Encounter - Brenda Callahan - 07/28/2022 10:44 AM EDT PT called she was advised to call this office. She has a few questions. Prior notes in chart she has been at [facility]. She would like a call back from a nurse please. [phone] documented in this encounter Plan of Treatment Upcoming Encounters Date Type Department Care Team (Late st Contact Info) Description 10/08/2023 8:30 AM EDT Tech [place] [address]-1000 Jose Cook 10/08/2023 9:30 AM EDT Office Visit [place] [address]-[address] MD [facility] [place] [place] [address] 10/21/2023 10:30 AM EDT Appointment [place] [address] Mary Reyes APRN [facility] [place] [address] 10/21/2023 11:30 AM EDT Appointment Nuclear Medicine at [place] [phone] Mary Reyes, [facility] [place] [address] 10/21/2023 12:30 PM EDT Appointment Nuclear Medicine at [place] [phone] Mary Reyes [facility] [place] [address] 10/21/2023 1:30 PM EDT Appointment [place] [address]-1000 Mary Reyes, [facility] [place] [address] 10/21/2023 2:30 PM EDT Appointment [place] [address]-1000 Mary Reyes, [facility] [place] [address] 10/26/2023 4:00 PM EDT Office Visit Cardiology at [address] [phone] Jaspreet Kinsey MD [facility] [place] [address] 10/28/2023 9:00 AM EDT Office [place] [address] 10/29/2023 10:00 AM EDT Clinical [place] [address] 10/29/2023 10:15 AM EDT Procedure [place] [address] 11/01/2023 5:00 PM EDT Office Visit Gastroenterology at [place] [phone] Selene Browning, PhD [facility] [place] [address] 11/22/2023 4:40 PM EDT [place] [address] Porsha Mcdaniels MD [facility] [place] [address] 12/13/2023 10:00 AM EDT Clinical Support Gastroenterology at [place] [phone] Lucero Romero, [place] [facility] [place] [address] documented as of this encounter Visit Diagnoses Not on filedocumented in this encounter Care Teams Bisque Tile Burner Relationship Specialty Start Date End Date Polo Pearce PA [address] [place] [address] PCP - General Internal Medicine 06/09/21 documented as of this encounter
--- OUTSIDE RECORDS SUMMARY | 2023-09-20 18:37 | XMS_ITS | Encounter Summary ---
Author Organization [facility] Address [facility] [place] [address] Care Team Providers Care Business [employer] Dean Name Role Phone Polo Pearce Primary Care Provider [phone] Reason for Referral * Consultation (Routine) - Closed Specialty Diagnoses / Procedures Referred By Jayant harris Referred To Contact Vascular Surgery Diagnoses Pulmonary embolism, unspecified chronicity, unspecified pulmonary embolism type, unspecified whether acute cor pulmonale present ROUTINE, SALVATORE, BLE DVT Vascular medicine PE clinic: seemingly unprovoked small PE. review consideration of hypercoagulability testing Jaspreet Kinsey MD [facility] [place] [address] Elvin Maya MD [facility] [place] [address] Referral ID Status Reason Start Date Expiration Date V isits Requested Visits Authorized [id number] Closed Consult, Test & Treat 07/30/2022 07/30/2023 1 1 Reason for Visit * Reason Comments Coronary Artery Disease Congestive Heart Failure HFpEF Chest Pain Encounter Details Date Type Department Care Team (Late st Contact Info) Description 07/30/2022 9:20 AM EDT Office Visit Cardiology at [address] [place] [address] Jaspreet Kinsey MD [facility] [place] [address] Heart failure with preserved ejection fraction, unspecified [...] Intercurrently, patient presented earlier this week to [facility] with an abrupt increase in fatigue/dyspnea x [...] a significant increase in UOP; however, at [facility] notes they gave me something that they [...] DAYS ??? fluticasone propionate (FLONASE) 50 mcg/actuation [place], Suspension 1 spray, Each Nare, DAILY ??? [...] preserved ejection fraction 05/2021: subacute, presented to [facility] with RUQ pain, weight gain, and [...] discharge summary and medication administration record from [facility] to see what was given to [...] discharge summary and medication administration record from [facility] to see what was given to her to effect UOP positively - Diuresis: bumex 1 qd - Cardioprotection: - SGLT2i: jardiance - MRA: aldactone 25 documented in this encounter Plan of Treatment Upcoming Encounters Date Type Department Care Team (Late st Contact Info) Description 10/08/2023 8:30 AM EDT Tech [place] [phone] Jose Cook 10/08/2023 9:30 AM EDT Office Visit [place] [address]-[address] [facility] [place] [place] [address] 10/21/2023 10:30 AM EDT Appointment [place] [address] [facility] [place] [address] 10/21/2023 11:30 AM EDT Appointment Nuclear Medicine [place] [address] [facility] [place] [address] 10/21/2023 12:30 PM EDT Appointment Nuclear Medicine [place] [address] [facility] [place] [address] 10/21/2023 1:30 PM EDT Appointment Nuclear Medicine at [place] [phone] [facility] [place] [address] 10/21/2023 2:30 PM EDT Appointment [place] [address] [facility] [place] [address] 10/26/2023 4:00 PM EDT Office Visit Cardiology at [address] [phone] Jaspreet Kinsey MD [facility] [place] [address] 10/28/2023 9:00 AM EDT Office [place] [address] 10/29/2023 10:00 AM EDT Clinical [place] [address] 10/29/2023 10:15 AM EDT Procedure [place] [address] 11/01/2023 5:00 PM EDT Office Visit Gastroenterology [place] [address] Selene Browning, PhD [facility] [place] [address] 11/22/2023 4:40 PM EDT Office Visit Cardiology at [place] [phone] Porsha Mcdaniels MD [facility] [place] [address] 12/13/2023 10:00 AM EDT Clinical Support [place] [address] Lucero Romero, [place] [facility] [place] [address] Scheduled Referrals Name Type Priority Associated Diagnoses [...] dysrhythmias documented in this encounter Care Teams Business [employer] Dean Relationship Specialty Start Date End Date Polo Pearce PA [address] [place] [address] PCP - General Internal Medicine 4/4/22 documented as of this encounter
--- OUTSIDE RECORDS SUMMARY | 2023-09-20 18:37 | XMS_ITS | Encounter Summary ---
Author Organization [facility] Address [facility] [place] [address] Care Team Providers Care Van Owner Operator Name Role Phone Polo Pearce Primary Care Provider [phone] Reason for Visit * Reason Onset Date Comments Chest Pain 07/27/2022 Shortness of Breath 07/27/2022 Fatigue 07/27/2022 Encounter Details Date Type Department Care Team (Late st Contact Info) Description 07/27/2022 Telephone Cardiology at [address] [phone] Jaspreet Kinsey MD [facility] [place] [address] Chest Pain; Shortness of Breath; Fatigue Social [...] EDT Florencia has been admitted inpatient at [facility]. * Telephone Encounter - Aide Glass Talia - 07/27/2022 3:35 PM EDT Patient called and said she is now in [facility]. She said they did a CT scan and found blood clots on her lungs. She also has a fluid buildup. Please call her @ [phone] * Telephone Encounter - Nilda Mayes RN [...] for assessment. Plan: Florencia will go to [facility] for evaluation. documented in this encounter Plan of Treatment Upcoming Encounters Date Type Department Care Team (Late st Contact Info) Description 10/08/2023 8:30 AM EDT Tech Visit [place] [phone] Jose Cook 10/08/2023 9:30 AM EDT Office Visit Vascular [place] [phone] MD [facility] [place] [address] 10/21/2023 10:30 AM EDT Appointment [place] [phone] Mary Reyes, ROM [facility] [address] 10/21/2023 11:30 AM EDT App[place] [address] Mary Reyes, [facility] [address] 10/21/2023 12:30 PM EDT Appoint[place] [address] Mary Reyes, [facility] [place] [address] 10/21/2023 1:30 PM EDT Appoint[place] [address] Mary Reyes, [facility] [place] [address] 10/21/2023 2:30 PM EDT Appoint[place] [address] Mary Reyes, [facility] [place] [address] 10/26/2023 4:00 PM EDT Office Visit Cardiology at [address] [phone] Jaspreet Kinsey MD [facility] [place] [address] 10/28/2023 9:00 AM EDT Office Visit [place] [address] 10/29/2023 10:00 AM EDT Clinical Support [place] [address] 10/29/2023 10:15 AM EDT Procedure visit [place] [address] 11/01/2023 5:00 PM EDT Office Visit Gastroenterology at [place] [phone] Selene Browning, PhD [facility] [place] [address] 11/22/2023 4:40 PM EDT Office Visit Cardiology at [place] [phone] Porsha Mcdaniels MD [facility] [place] [address] 12/13/2023 10:00 AM EDT Clinical Support Gastroenterology at [place] [phone] Lucero Romero, [place] [facility] [place] [address] documented as of this encounter Visit Diagnoses Not on filedocumented in this encounter Care Teams Van Owner Operator Relationship Specialty Start Date End Date Polo Pearce PA [address] [place] [address] PCP - General Internal Medicine 06/09/21 documented as of this encounter
--- OUTSIDE RECORDS SUMMARY | 2023-09-20 18:37 | XMS_ITS | Encounter Summary ---
Author Organization [facility] [place] [address] Care Team Providers Care Visitor Use Assistant Name Role Phone Polo Pearce Primary Care Provider [phone] Encounter Details Date Type Department Care Team (Late st Contact Info) Description 07/29/2022 9:45 PM EDT Ancillary Procedure Radiology [place] [phone] Marcia Kamara MD [facility] [place] [place] [address] Social History Tobacco Use Types Packs/Day Years [...] AM EDT Tech Visit [place] [address]-1000 Jose Cook 10/08/2023 9:30 AM EDT Office [place] [phone] MD [facility] [place] [address] 10/21/2023 10:30 AM EDT Appointment Nuclear Medicine at [address]1000 Mary Reyes, [facility] [place] [address] 10/21/2023 11:30 AM EDT Appointment Nuclear Medicine at [address]1000 Mary Reyes [facility] [place] [address] 10/21/2023 12:30 PM EDT Appointment Nuclear Medicine at [place] [phone] Mary Reyes [facility] [place] [address] 10/21/2023 1:30 PM EDT Appointment [place] [address]-1000 Mary Reyes [facility] [place] [address] 10/21/2023 2:30 PM EDT Appointment [place] [address]-1000 Mary Reyes [facility] [place] [address] 10/26/2023 4:00 PM EDT Office Visit Cardiology at [address] [phone] Jaspreet Kinsey MD [facility] [place] [address] 10/28/2023 9:00 AM EDT Office Visit [place] [address] 10/29/2023 10:00 AM EDT Clinical Support [place] [address] 10/29/2023 10:15 AM EDT Procedure visit G[place] [address] 11/01/2023 5:00 PM EDT Office Visit Gastroenterology at [place] [phone] Selene Browning, PhD [facility] [place] [address] 11/22/2023 4:40 PM EDT Office Visit Cardiology at [address] [phone] Porsha Mcdaniels MD [facility] [place] [address] 12/13/2023 10:00 AM EDT Clinical Support [place] [address]-1000 Lucero Romero, [place] [place] [address] documented as of this encounter Procedures Procedure Name Priority Date/Time Associated Diagnosis Comments FILM LIBRARY STORAGE ONLY CT CHEST Routine 07/29/2022 9:43 PM EDT documented in this encounter Results * Film Library- Storage Only CT Chest (07/29/2022 9:43 PM EDT) Narrative [facility] - 07/29/2022 9:43 PM EDT This exam is auto-finalizing. It's purpose is for storage only. Marcia Kamara MD IMG FILM LIBRARY ORD ERABLES DH [place], [place] documented in this encounter Visit Diagnoses Not on filedocumented in this encounter Care Teams Visitor Use Assistant Relationship Specialty Start Date End Date Polo Pearce PA [address] [place] [address] PCP - General Internal Medicine 06/09/21 documented as of this encounter
--- OUTSIDE RECORDS SUMMARY | 2023-09-20 18:37 | XMS_ITS | Encounter Summary ---
Author Organization [facility]ly [facility] [place] [address] Care Team Providers Care Library Attendant Name Role Phone Polo Pearce Primary Care Provider [phone] Encounter Details Date Type Department Care Team [...] AM EDT Tech [place] [address]-1000 Jose Cook 10/08/2023 9:30 AM EDT Office Visit [place] [phone] MD [facility] [place] [address] 10/21/2023 10:30 AM EDT Appointment [place] [address] Mary Reyes [facility] [place] [address] 10/21/2023 11:30 AM EDT Appointment Nuclear Medicine at [place] [phone] Mary Reyes [facility] [place] [address] 10/21/2023 12:30 PM EDT Appointment Nuclear Medicine at [place] [phone] Mary Reyes [facility] [place] [address] 10/21/2023 1:30 PM EDT Appoint[place] [address] Mary Reyes [facility] [place] [address] 10/21/2023 2:30 PM EDT Appoint[place] [address] Mary Reyes [facility] [place] [address] 10/26/2023 4:00 PM EDT Office Visit Cardiology at [address] [phone] Jaspreet Kinsey MD [facility] [address] 10/28/2023 9:00 AM EDT Office [place] [address] 10/29/2023 10:00 AM EDT Clinical [place] [address] 10/29/2023 10:15 AM EDT Procedure [place] [address] 11/01/2023 5:00 PM EDT Office Visit Gastroenterology at [place] [phone] Selene Browning, PhD [facility] [place] [address] 11/22/2023 4:40 PM EDT Office Visit Cardiology at [address] [address] Porsha Mcdaniels MD [facility] [place] [address] 12/13/2023 10:00 AM EDT Clinical Support [place] [address] Lucero Romero, ALVA [facility] [place] [address] documented as of this encounter Visit Diagnoses Not on filedocumented in this encounter Care Teams Library Attendant Relationship Specialty Start Date End Date Polo Pearce PA [address] [place] [address] PCP - General Internal Medicine 06/09/21 documented as of this encounter
--- OUTSIDE RECORDS SUMMARY | 2023-09-20 18:37 | XMS_ITS | Encounter Summary ---
Author Organization [facility] [place] [address] Care Team Providers Care Sign Erector And Repairer Name Role Phone Polo Pearce Primary Care Provider [phone] Encounter Details Date Type Department Care Team (Late st Contact Info) Description 08/31/2022 Telephone Cardiology at [address] [phone] Carrol La PA [facility] [address] Social History Tobacco Use Types Packs/Day Years [...] PM Referring Provider: Dr. Evans Patient Location: [facility] Brief History Lyubov Roque is a 52 y.o female with PMH of HFpEF, SVT, PE on Eliquis, HLD who presented to the OSH with nausea, diffuse abdominal pain. Developed chest pain that OSH provider reports was LUQ pain under left breast. [place] like a sharp, intermittent squeeze. Patient is [...] was LUQ abdominal pain under left breast. [place] like a sharp, intermittent squeeze that resolved [...] 300's range on prior lab checks in [facility] system. ACS seems unlikely at this time based on my discussion with Dr. Evans as her symptoms seem GI in origin. This may represent a type II NSTEMI in setting of CATIE and acute GI illness. I recommended close follow up with Dr. Kinsey, primary yardmaster who can consider stress testing. In addition, [...] in management. Carrol La PA-C Access Pager [phone] 08/31/2022 documented in this encounter Plan of Treatment Upcoming Encounters Date Type Department Care Team (Late st Contact Info) Description 10/08/2023 8:30 AM EDT Tech Visit Vascular Lab at [place] [phone] Jose Cook 10/08/2023 9:30 AM EDT Office Visit Vascular Surgery at [place] [phone] [facility] [place] [place] [address] 10/21/2023 10:30 AM EDT Appointment Nuclear Medicine at [place] [phone] Mary Reyes [facility] [place] [address] 10/21/2023 11:30 AM EDT Appointment [place] [phone] Mary Reyes [facility] [place] [address] 10/21/2023 12:30 PM EDT Appointment [place] [address]-1000 Mary Reyes [facility] [place] [address] 10/21/2023 1:30 PM EDT Appointment Nuclear [facility] [place] [address] [facility] [place] [address] 10/21/2023 2:30 PM EDT Appointment Nuclear Medicine at [place] [phone] [facility] [place] [address] 10/26/2023 4:00 PM EDT Office Visit Cardiology at [address] [phone] Jaspreet Kinsey MD [facility] [place] [address] 10/28/2023 9:00 AM EDT Office Visit [place] [address] 10/29/2023 10:00 AM EDT Clinical [place] [address] 10/29/2023 10:15 AM EDT Procedure visit [place] [address] 11/01/2023 5:00 PM EDT Office Visit Gastroenterology at [place] [phone] Selene Browning, PhD [facility] [place] [address] 11/22/2023 4:40 PM EDT Office Visit Cardiology at [place] [phone] [facility] [place] [address] 12/13/2023 10:00 AM EDT Clinical Support [place] [address] Lucero Romero, AL[place] [facility] DR [place] [address] documented as of this encounter Visit Diagnoses Not on filedocumented in this encounter Care Teams Sign Erector And Repairer Relationship Specialty Start Date End Date Polo Pearce PA [address] [place] [address] PCP - General Internal Medicine 06/09/21 documented as of this encounter
--- OUTSIDE RECORDS SUMMARY | 2023-09-20 18:37 | XMS_ITS | Encounter Summary ---
Author Organization [facility] [place] [address] Care Team Providers Care Refinery Process Engineer Name Role Phone Polo Pearce Primary Care Provider [phone] Encounter Details Date Type Department Care Team (Late st Contact Info) Description 07/29/2022 9:50 PM EDT Ancillary Procedure [place] [phone] Marcia Kamara MD [facility] [place] [address] Social History Tobacco Use Types Packs/Day Years [...] AM EDT Tech [place] [address]-1000 Jose Cook 10/08/2023 9:30 AM EDT Office [place] [phone] MD [facility] [place] [address] 10/21/2023 10:30 AM EDT Appointment Nuclear Medicine at [address]1000 Mary Reyes, [facility] [place] [address] 10/21/2023 11:30 AM EDT Appointment Nuclear Medicine at [address]1000 Mary Reyes [facility] [place] [address] 10/21/2023 12:30 PM EDT Appointment Nuclear Medicine at [place] [phone] Mary Reyes [facility] [place] [address] 10/21/2023 1:30 PM EDT Appointment Nuclear [place] [phone] Mary Reyes [facility] [place] [address] 10/21/2023 2:30 PM EDT Appointment Nuclear [place] [phone] Mary Reyes [facility] [place] [address] 10/26/2023 4:00 PM EDT Office Visit Cardiology at [address] [phone] Jaspreet Kinsey MD [facility] [place] [address] 10/28/2023 9:00 AM EDT Office Visit [place] [address] 10/29/2023 10:00 AM EDT Clinical Support [place] [address] 10/29/2023 10:15 AM EDT Procedure visit [place] [address] 11/01/2023 5:00 PM EDT Office Visit Gastroenterology at [place] [phone] Selene Browning, PhD [facility] DR [place] [phone] 11/22/2023 4:40 PM EDT Office Visit Cardiology at [address] [address] Porsha Mcdaniels MD [facility] [place] [address] 12/13/2023 10:00 AM EDT Clinical [place] [phone] Lucero Romero, [place] [facility] [place] [place] [address] documented as of this encounter Procedures Procedure Name Priority Date/Time Associated Diagnosis Comments FILM LIBRARY STORAGE ONLY CT HEAD AND SPINE Routine 07/29/2022 9:45 PM EDT documented in this encounter Results * Film Library- Storage Only CT Head And Spine (07/29/2022 9:45 PM EDT) Narrative [facility] - 07/29/2022 9:45 PM EDT This exam is auto-finalizing. It's purpose is for storage only. Marcia Kamara MD IMG FILM LIBRARY ORD ERABLES DH [place], [place] documented in this encounter Visit Diagnoses Not on filedocumented in this encounter Care Teams Refinery Process Engineer Relationship Specialty Start Date End Date Polo Pearce PA [address] [place] [address] PCP - General Internal Medicine 06/09/21 documented as of this encounter
--- OUTSIDE RECORDS SUMMARY | 2023-09-20 18:37 | XMS_ITS | Encounter Summary ---
Author Organization [facility] [place] [address] Care Team Providers Care Batter Mixer Name Role Phone Polo Pearce Primary Care Provider [phone] Encounter Details Date Type Department Care Team (Late st Contact Info) Description 09/26/2022 External [place] [address] Social History Tobacco Use Types Packs/Day Years [...] AM EDT Tech [place] [address] Jose Cook 10/08/2023 9:30 AM EDT Office [place] [phone] MD [facility] [place] [address] 10/21/2023 10:30 AM EDT Appointment [place] [address] Mary Reyes [facility] [place] [address] 10/21/2023 11:30 AM EDT Appointment Nuclear Medicine at [place] [phone] Mary Reyes [facility] [place] [address] 10/21/2023 12:30 PM EDT Appointment Nuclear Medicine at [address]1000 Mary Reyes [facility] [place] [address] 10/21/2023 1:30 PM EDT Appointment [place] [address] Mary Reyes [facility] [place] [address] 10/21/2023 2:30 PM EDT Appointment [place] [address] Mary Reyes [facility] [place] [address] 10/26/2023 4:00 PM EDT Office Visit Cardiology at [address] [phone] Jaspreet Kinsey MD [facility] [place] [address] 10/28/2023 9:00 AM EDT Office [place] [address] 10/29/2023 10:00 AM EDT Clinical [place] [address] 10/29/2023 10:15 AM EDT Procedure [place] [address] 11/01/2023 5:00 PM EDT Office Visit Gastroenterology at [place] [phone] Selene Browning, PhD [facility] [place] [address] 11/22/2023 4:40 PM EDT Office Visit Cardiology at [address] [phone] Porsha Mcdaniels MD [facility] [place] [address] 12/13/2023 10:00 AM EDT Clinical Support Gastroenterology at [place] [phone] Lucero Romero, RD [facility] [place] [address] documented as of this encounter Procedures Procedure Name Priority Date/Time Associated Diagnosis Comments ECG SCAN Routine 09/26/2022 8:40 AM EDT documented in this encounter Results * Scan Doc: ECG (09/26/2022 8:40 AM EDT) Historical Provider MD LONNIE PRAKASH SCAN EX T ORDR/RSLT documented in this encounter Visit Diagnoses Not on filedocumented in this encounter Care Teams Batter Mixer Relationship Specialty Start Date End Date Polo Pearce PA [address] [place] [address] PCP - General Internal Medicine 06/09/21 documented as of this encounter
--- OUTSIDE RECORDS SUMMARY | 2023-09-20 18:38 | XMS_ITS | Encounter Summary ---
Author Organization [facility]ly [facility] Address [facility] [place] [address] Care Team Providers Care Digital Computer Systems Analyst Name Role Phone Polo Pearce Primary Care Provider [phone] Reason for Visit * Reason Comments Congestive Heart Failure Encounter Details Date Type Department Care Team (Late st Contact Info) Description 03/16/2022 3:20 PM EST Office Visit Cardiology at [address] [phone] Jaspreet Kinsey MD [facility] [place] [address] Heart failure with preserved ejection fraction, unspecified [...] She states when she was [facility] from [facility] inOctober she felt OK, but shortly thereafter [...] Rfl: ??? fluticasone propionate (FLONASE) 50 mcg/actuation [place], Suspension, 1 spray by Each Nare routedaily., [...] preserved ejection fraction 05/2021: subacute, presented to [facility] with RUQ pain, weight [...] AM EDT Tech Visit Vascular Lab at [place] [phone] Jose Cook 10/08/2023 9:30 AM EDT Office Visit Vascular Surgery at [place] [phone] MD [facility] [place] [address] 10/21/2023 10:30 AM EDT Appointment Nuclear Medicine at [address]1000 Mary Reyes [facility] [place] [address] 10/21/2023 11:30 AM EDT Appointment Nuclear Medicine at [place] [phone] Mary Reyes [facility] [place] [address] 10/21/2023 12:30 PM EDT Appointment Nuclear Medicine at [place] [phone] Mary Reyes [facility] [place] [address] 10/21/2023 1:30 PM EDT Appointment [place] [address] Mary Reyes APRN [facility] [place] [address] 10/21/2023 2:30 PM EDT Appointment Nuclear Medicine at [place] [phone] Mary Reyes APRN [facility] [place] [address] 10/26/2023 4:00 PM EDT Office Visit Cardiology at [address] [phone] Jaspreet iKnsey MD [facility] [place] [address] 10/28/2023 9:00 AM EDT Office Visit [place] [address] 10/29/2023 10:00 AM EDT Clinical Support [place] [address] 10/29/2023 10:15 AM EDT Procedure [place] [address] 11/01/2023 5:00 PM EDT Office Visit Gastroenterology at [place] [phone] Selene Browning, PhD [facility] [place] [address] 11/22/2023 4:40 PM EDT Office Visit Cardiology at [place] [phone] Porsha Mcdaniels MD [facility] [place] [address] 12/13/2023 10:00 AM EDT Clinical [place] [address] Lucero Romero, [place] [facility] [place] [address] documented as of this encounter Visit Diagnoses Diagnosis Heart failure with preserved ejection fraction, unspecified HF chronicity SVT (supraventricular tachycardia) Other specified cardiac dysrhythmias documented in this encounter Care Teams Digital Computer Systems Analyst Relationship Specialty Start Date End Date Polo Pearce PA [address] [place] [address] PCP - General Internal Medicine 06/09/21 documented as of this encounter
--- OUTSIDE RECORDS SUMMARY | 2023-09-20 18:38 | XMS_ITS | Encounter Summary ---
[place] [address] Care Team Providers Care Business Communications Instructor Name Role Phone Polo Pearce Primary Care Provider [phone] Encounter Details Date Type Department Care Team (Late st Contact Info) Description 03/10/2022 Telephone Cardiology at [address] [phone] Maegan Mike APRN [facility] [place] [address] Social History Tobacco Use Types Packs/Day Years [...] Miscellaneous Notes * Telephone Encounter - Maegan Miek APRN - 03/10/2022 3:42 PM EST Images from the original note were not included. 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 She has [...] the patient condition. Maegan Mike APRN Pager [phone] 03/10/2022 documented in this encounter Plan of Treatment Upcoming Encounters Date Type Department Care Team (Late st Contact Info) Description 10/08/2023 8:30 AM EDT Tech Visit Vascular Lab at [place] [phone] Jose Cook 10/08/2023 9:30 AM EDT Office Visit Vascular Surgery at [place] [phone] MD [facility] [place] [address] 10/21/2023 10:30 AM EDT Appointment Nuclear Medicine at [place] [phone] Mary Reyes DIPLOMATIC OFFICER [facility] [place] [address] 10/21/2023 11:30 AM EDT Appointment Nuclear Medicine at [place] [phone] Mary Reyes DIPLOMATIC OFFICER [facility] [place] [address] 10/21/2023 12:30 PM EDT Appointment [place] [address] Mary Reyes, [facility] [place] [address] 10/21/2023 1:30 PM EDT Appointment [place] [address] Mary Reyes, [facility] [place] [address] 10/21/2023 2:30 PM EDT Appointment [place] [address] Mary Reyes, [facility] [place] [address] 10/26/2023 4:00 PM EDT Office Visit Cardiology at [address] [phone] Jaspreet Kinsey MD [facility] [place] [address] 10/28/2023 9:00 AM EDT Office [place] [address] 10/29/2023 10:00 AM EDT Clinical Support [place] [address] 10/29/2023 10:15 AM EDT Procedure [place] [address] 11/01/2023 5:00 PM EDT Office Visit [place] [address] Selene Browning, PhD [facility] [place] [address] 11/22/2023 4:40 PM EDT Office Visit Cardiology at [address] [phone] Porsha Mcdaniels MD [facility] [address] 12/13/2023 10:00 AM EDT Clinical Support [place] [phone] [facility] [place] [place] [address] documented as of this encounter Visit Diagnoses Not on filedocumented in this encounter Care Teams Business Communications Instructor Relationship Specialty Start Date End Date Polo Pearce PA Sb MOTT [address] [place] [address] PCP - General Internal Medicine 06/09/21 documented as of this encounter
--- OUTSIDE RECORDS SUMMARY | 2023-09-20 18:38 | XMS_ITS | Encounter Summary ---
Author Organization [facility] Address [facility] [place] [address] Care Team Providers Care Digital Marketing Strategist Name Role Phone Polo Pearce Primary Care Provider [phone] Encounter Details Date Type Department Care Team (Late st Contact Info) Description 12/31/2021 Orders Only Cardiology at [address] [phone] Umberto Joy PA [facility] [place] [address] SVT (supraventricular tachycardia) Social History Tobacco Use [...] AM EDT Tech [place] [phone] Jose Cook 10/08/2023 9:30 AM EDT Office [place] [address] MD [facility] [place] [address] 10/21/2023 10:30 AM EDT Appointment Nuclear Medicine at [address]1000 Mary Reyes [facility] [place] [address] 10/21/2023 11:30 AM EDT Appointment Nuclear Medicine at [address]1000 Mary Reyes [facility] [place] [address] 10/21/2023 12:30 PM EDT Appointment Nuclear Medicine at [place] [phone] Mary Reyes [facility] [place] [address] 10/21/2023 1:30 PM EDT Appointment [place] [phone] Mary Reyes [facility] [place] [address] 10/21/2023 2:30 PM EDT Appointment [place] [phone] Mary Reyes [facility] [place] [address] 10/26/2023 4:00 PM EDT Office Visit Cardiology at [address] [phone] Jaspreet Kinsey MD [facility] [place] [address] 10/28/2023 9:00 AM EDT Office Visit Gastroenterology at [place] [phone] 10/29/2023 10:00 AM EDT Clinical [place] [address] 10/29/2023 10:15 AM EDT Procedure visit [place] [address] 11/01/2023 5:00 PM EDT Office Visit Gastroenterology at [place] [phone] Selene Browning, PhD [facility] [place] [address] 11/22/2023 4:40 PM EDT Office Visit Cardiology at [address] [phone] Porsha Mcdaniels MD [facility] [place] [address] 12/13/2023 10:00 AM EDT Clinical [place] [phone] [facility] [place] [address] documented as of this encounter Procedures Procedure [...] Lovell. Interpretation Summary Limited echocardiogram performed by director selection and administration fellow. 1. LV appears globally hypokinetic. Visually estimated LVEF 40%. 2. RV is not well visualized, but appears mildly reduced in global systolic function. Recommend comprehensive echo. Procedure Note Willy Gómez MD - 01/05/2022 Echocardiogram Report Name: LOIDA ROQUE Study Date: 12/30/2021 11:29PM : 1970 Age: 51 yrs Gender: Female Interpreting Fellow: Ciro Lovell. Interpretation Summary Limited echocardiogram performed by director selection and administration fellow. 1. LV appears globally hypokinetic. Visually estimated LVEF 40%. 2. RV is not well visualized, but appears mildly reduced in globalsystolic function. Recommend comprehensive echo. Unknown ECHO ORDERABLES documented in this encounter Visit Diagnoses Diagnosis SVT (supraventricular tachycardia) Other specified cardiac dysrhythmias documented in this encounter Care Teams Digital Marketing Strategist Relationship Specialty Start Date End Date Polo Pearce PA [address] [place] [address] PCP - General Internal Medicine 06/09/21 documented as of this encounter
--- OUTSIDE RECORDS SUMMARY | 2023-09-20 18:38 | XMS_ITS | Encounter Summary ---
[place] [address] Care Team Providers Care Electrical Engineering Drafting Officer Name Role Phone Polo Pearce Primary Care Provider [phone] Encounter Details Date Type Department Care Team (Late st Contact Info) Description 06/12/2021 External [place] [phone] Social History Tobacco Use Types Packs/Day Years [...] AM EDT Tech [place] [phone] Jose Cook 10/08/2023 9:30 AM EDT Office [place] [phone] MD [facility] [place] [address] 10/21/2023 10:30 AM EDT Appointment [place] [address] Mary Reyes [facility] [place] [address] 10/21/2023 11:30 AM EDT Appointment [place] [address] Mary Reyes, [facility] [place] [address] 10/21/2023 12:30 PM EDT Appointment Nuclear Medicine at [place] [phone] Mary Reyes [facility] [place] [address] 10/21/2023 1:30 PM EDT Appointment [place] [address] Mary Reyes [facility] [place] [address] 10/21/2023 2:30 PM EDT Appointment [place] [address] Mary Reyes [facility] [place] [address] 10/26/2023 4:00 PM EDT Office Visit Cardiology at [address] [phone] Jaspreet Kinsey MD [facility] [place] [address] 10/28/2023 9:00 AM EDT Office [place] [address] 10/29/2023 10:00 AM EDT Clinical [place] [address] 10/29/2023 10:15 AM EDT Procedure [place] [address] 11/01/2023 5:00 PM EDT Office Visit Gastroenterology at [place] [phone] Selene Browning, PhD [facility] [place] [address] 11/22/2023 4:40 PM EDT Office Visit Cardiology at [place] [phone] Porsha Mcdaniels MD [facility] [place] [address] 12/13/2023 10:00 AM EDT Clinical [place] [phone] Lucero oRmero, [facility] [place] [address] documented as of this encounter Procedures Procedure Name Priority Date/Time Associated Diagnosis Comments ECG SCAN Routine 06/12/2021 documented in this encounter Results * Scan Doc: ECG (06/12/2021) Historical Provider MD FLEMING MGR SCAN EX T ORDR/RSLT documented in this encounter Visit Diagnoses Not on filedocumented in this encounter Care Teams Electrical Engineering Drafting Officer Relationship Specialty Start Date End Date Polo Pearce PA Sb MOTT [address] [place] [address] PCP - General Internal Medicine 06/09/21 documented as of this encounter
--- OUTSIDE RECORDS SUMMARY | 2023-09-20 18:38 | XMS_ITS | Encounter Summary ---
Author Organization [facility] Address [facility] [place] [address] Care Team Providers Care Uniformer Name Role Phone Ploo Pearce Primary Care Provider [phone] Encounter Details Date Type Department Care Team (Late st Contact Info) Description 08/08/2021 Orders Only Cardiology at [address] [phone] Umberto Joy PA [facility] DR [place] [address] AVNRT (AV makayla re-entry tachycardia) (Primary Dx); [...] AM EDT Tech [place] [address] Jose Cook 10/08/2023 9:30 AM EDT Office Visit Vascular [place] [address] MD [facility] [place] [address] 10/21/2023 10:30 AM EDT Appointment Nuclear Medicine at [address] [facility] [place] [address] 10/21/2023 11:30 AM EDT Appointment Nuclear Medicine at [address] [facility] [place] [address] 10/21/2023 12:30 PM EDT Appointment Nuclear Medicine at [place] [phone] [facility] [place] [address] 10/21/2023 1:30 PM EDT Appointment Nuclear Medicine at [place] [phone] [facility] [place] [address] 10/21/2023 2:30 PM EDT Appointment [place] [address] [facility] [place] [address] 10/26/2023 4:00 PM EDT Office Visit Cardiology at [address] [place] [address] Jaspreet Kinsey MD [facility] [place] [address] 10/28/2023 9:00 AM EDT Office [place] [address] 10/29/2023 10:00 AM EDT Clinical [place] [address] 10/29/2023 10:15 AM EDT Procedure [place] [address] 11/01/2023 5:00 PM EDT Office Visit Gastroenterology [place] [phone] Selene Browning, PhD [facility] [place] [address] 11/22/2023 4:40 PM EDT Office Visit Cardiology at [address] [phone] Porsha Mcdaniels MD [facility] [place] [address] 12/13/2023 10:00 AM EDT Clinical Support Gastroenterology [place] [address] [facility] [place] [address] documented as of this encounter Visit Diagnoses Diagnosis AVNRT (AV makayla re-entry tachycardia)- Primary Other specified cardiac dysrhythmias Heart failure with preserved ejection fraction, unspecified HF chronicity SVT (supraventricular tachycardia) Other specified cardiac dysrhythmias documented in this encounter Care Teams Uniformer Relationship Specialty Start Date End Date Polo Pearce PA [address] [place] [address] PCP - General Internal Medicine 06/09/21 documented as of this encounter
--- OUTSIDE RECORDS SUMMARY | 2023-09-20 18:38 | XMS_ITS | Encounter Summary ---
Author Organization [facility] Address [facility] [place] [address] Care Team Providers Care Commercial Carpet Installer Name Role Phone Polo Pearce Primary Care Provider [phone] Reason for Visit * Reason Onset Date Comments Chest Pain 03/11/2022 Encounter Details Date Type Department Care Team (Late st Contact Info) Description 03/11/2022 Telephone Cardiology at [address] [phone] Jaspreet Kinsey MD [facility] [place] [address] Chest Pain Social History Tobacco Use Types [...] UTI, URI symptoms Requesting discharge summary(s) from [facility] from this week. Plan: to determine the indication and goals for this follow up cardiology appointment. From consultation by [facility] with Vianey Mike on 03/10/2021: Patient's chest [...] and blood in urine. Her number is [phone] should you have any questions. I looked in the chart and looks like we still need those records documented in this encounter Plan of Treatment Upcoming Encounters Date Type Department Care Team (Late st Contact Info) Description 10/08/2023 8:30 AM EDT Tech [place] [address]-1000 Jose Cook 10/08/2023 9:30 AM EDT Office [place] [address] MD [facility] [address] 10/21/2023 10:30 AM EDT Appointment [place] [address] Mary Reyes, [facility] [address] 10/21/2023 11:30 AM EDT Appointment [place] [address] Mary Reyes [facility] [place] [address] 10/21/2023 12:30 PM EDT Appointment [place] [address] Mary Reyes [facility] [place] [address] 10/21/2023 1:30 PM EDT Appointment [place] [address] Mary Reyes, [facility] [place] [address] 10/21/2023 2:30 PM EDT Appointment [place] [address] Mary Reyes [facility] [place] [address] 10/26/2023 4:00 PM EDT Office Visit Cardiology at [address] [phone] Jaspreet Kinsey MD [facility] [place] [address] 10/28/2023 9:00 AM EDT Office [place] [address] 10/29/2023 10:00 AM EDT Clinical [place] [address] 10/29/2023 10:15 AM EDT Procedure [place] [address] 11/01/2023 5:00 PM EDT Office Visit Gastroenterology at [place] [phone] Selene Browning, PhD [facility] [place] [address] 11/22/2023 4:40 PM EDT Office Visit Cardiology at [place] [phone] Porsha Mcdaniels MD [facility] [place] [address] 12/13/2023 10:00 AM EDT Clinical [place] [address]-1000 Lucero Romero, [place] [facility] [place] [address] documented as of this encounter Visit Diagnoses Not on filedocumented in this encounter Care Teams Commercial Carpet Installer Relationship Specialty Start Date End Date Polo Pearce PA [address] [place] [address] PCP - General Internal Medicine 06/09/21 documented as of this encounter
--- OUTSIDE RECORDS SUMMARY | 2023-09-20 18:38 | XMS_ITS | Encounter Summary ---
[place] [address] Care Team Providers Care Melter Supervisor Name Role Phone Polo Pearce Primary Care Provider [phone] Reason for Visit * Reason Onset Date Comments Follow-up 03/18/2022 Encounter Details Date Type Department Care Team (Late st Contact Info) Description 03/18/2022 Telephone Cardiology at [address] [phone] Mary Motta, RN Follow-up Social History Tobacco [...] Dr. Tovar Pt saw Dr. Kinsey (primary laboratory helper on 03/16) where pt was known to [...] AM EDT Tech Visit Vascular Lab at [place] [phone] Jose Cook 10/08/2023 9:30 AM EDT Office [place] [phone] MD [facility] [place] [address] 10/21/2023 10:30 AM EDT Appointment Nuclear Medicine at [place] [phone] Mary Reyes [facility] [place] [address] 10/21/2023 11:30 AM EDT Appointment Nuclear Medicine at [place] [phone] Mary Reyes [facility] [place] [address] 10/21/2023 12:30 PM EDT Appointment [place] [phone] Mary Reyes [facility] [place] [address] 10/21/2023 1:30 PM EDT Appointment [place] [address]-1000 Mary Reyes [facility] [place] [address] 10/21/2023 2:30 PM EDT Appointment Nuclear Medicine at [place] [phone] Mary Reyes APRN [facility] [place] [address] 10/26/2023 4:00 PM EDT Office Visit Cardiology at [address] [phone] Jaspreet Kinsey MD [facility] [place] [address] 10/28/2023 9:00 AM EDT Office Visit [place] [address] 10/29/2023 10:00 AM EDT Clinical [place] [address] 10/29/2023 10:15 AM EDT Procedure [place] [address] 11/01/2023 5:00 PM EDT Office Visit Gastroenterology at [place] [phone] Selene Browning, PhD [facility] [place] [address] 11/22/2023 4:40 PM EDT Office Visit Cardiology at [address] [phone] Porsha Mcdaniels MD [facility] [place] [address] 12/13/2023 10:00 AM EDT Clinical [place] [address] Lucero Romero, [place] [facility] [address] [place] [address] documented as of this encounter Visit Diagnoses Not on filedocumented in this encounter Care Teams Melter Supervisor Relationship Specialty Start Date End Date Polo Pearce PA [facility] [address] [place] [address] PCP - General Internal Medicine 06/09/21 documented as of this encounter
--- OUTSIDE RECORDS SUMMARY | 2023-09-20 18:38 | XMS_ITS | Encounter Summary ---
Author Organization [facility] [address] Care Team Providers Care Floral Designer Salesperson Name Role Phone Polo Pearce Primary Care Provider [phone] Encounter Details Date Type Department Care Team (Late st Contact Info) Description 12/30/2021 8:00 PM EDT Ancillary Procedure [place] [phone] [facility] [place] [address] Social History Tobacco Use Types Packs/Day Years [...] AM EDT Tech [place] [address]-1000 Jose Cook 10/08/2023 9:30 AM EDT Office Visit [place] [address] MD [facility] [address] 10/21/2023 10:30 AM EDT Appointment Nuclear Medicine at [address]1000 Mary Reyes, [facility] [place] [address] 10/21/2023 11:30 AM EDT Appointment Nuclear Medicine at [place] [phone] Mary Reyes [facility] [place] [address] 10/21/2023 12:30 PM EDT Appointment [place] [phone] Mary Reyes [facility] [place] [address] 10/21/2023 1:30 PM EDT Appointment [place] [phone] Mary Reyes [facility] [place] [address] 10/21/2023 2:30 PM EDT Appointment [place] [phone] Mary Reyes [facility] [place] [address] 10/26/2023 4:00 PM EDT Office Visit Cardiology at [address] [phone] Jaspreet Kinsey MD [facility] [address] 10/28/2023 9:00 AM EDT Office Visit Gastroenterology at [place] [phone] 10/29/2023 10:00 AM EDT Clinical [place] [address] 10/29/2023 10:15 AM EDT Procedure [place] [address] 11/01/2023 5:00 PM EDT Office Visit Gastroenterology at [place] [phone] Selene Browning, PhD [facility] [place] [address] 11/22/2023 4:40 PM EDT Office Visit Cardiology at [address] [phone] Porsha Mcdaniels MD [facility] [place] [address] 12/13/2023 10:00 AM EDT Clinical Support [place] [phone] Lucero Romero, [place] [facility] [place] [address] documented as of this encounter Procedures Procedure Name Priority Date/Time Associated Diagnosis Comments FILM LIBRARY STORAGE ONLY CT CHEST Routine 12/30/2021 7:55 PM EDT documented in this encounter Results * Film Library- Storage Only CT Chest (12/30/2021 7:55 PM EDT) Narrative [facility] - 12/30/2021 7:55 PM EDT This exam is auto-finalizing. It's purpose is for storage only. Jaspreet Kinsey MD IMG FILM LIBRARY ORD ERABLES [place], [place] documented in this encounter Visit Diagnoses Not on filedocumented in this encounter Care Teams Floral Designer Salesperson Relationship Specialty Start Date End Date Polo Pearce PA [address] [place] [address] PCP - General Internal Medicine 06/09/21 documented as of this encounter
--- OUTSIDE RECORDS SUMMARY | 2023-09-20 18:38 | XMS_ITS | Encounter Summary ---
Author Organization [facility] [place] [address] Care Team Providers Care Carrier Driver Name Role Phone Ramses Polo SANDRA Primary Care Provider [phone] Encounter Details Date Type Department Care Team (Late st Contact Info) Description 03/11/2022 Orders Only Cardiology at [address] [phone] Jed Tovar MD [facility] [place] [address] SVT (supraventricular tachycardia) Social History Tobacco Use [...] AM EDT Tech [place] [address] Jose Cook 10/08/2023 9:30 AM EDT Office [place] [address] MD [facility] [place] [address] 10/21/2023 10:30 AM EDT Appointment [place] [phone] Mary Reyes, [facility] [address] 10/21/2023 11:30 AM EDT Appointment [place] [phone] Mary Reyes, [facility] [address] 10/21/2023 12:30 PM EDT Appointment [place] [phone] Mary Reyes, [facility] [address] 10/21/2023 1:30 PM EDT Appointment [place] [phone] Mary Reyes, [facility] [address] 10/21/2023 2:30 PM EDT Appointment [place] [phone] Mary Reyes, [facility] [address] 10/26/2023 4:00 PM EDT Office Visit Cardiology at [address] [phone] Jaspreet Kinsey MD [facility] [place] [address] 10/28/2023 9:00 AM EDT Office [place] [address] 10/29/2023 10:00 AM EDT Clinical Support [place] [address] 10/29/2023 10:15 AM EDT Procedure visit [place] [address] 11/01/2023 5:00 PM EDT Office Visit Gastroenterology at [place] [phone] Selene Browning, PhD [facility] [place] [address] 11/22/2023 4:40 PM EDT Office Visit Cardiology at [address] [phone] Porsha Mcdaniels MD [facility] [place] [address] 12/13/2023 10:00 AM EDT Clinical Support [place] [phone] Lucero Romero, [place] [facility] [place] [address] documented as of this encounter Visit Diagnoses Diagnosis SVT (supraventricular tachycardia) Other specified cardiac dysrhythmias documented in this encounter Care Teams Carrier Driver Relationship Specialty Start Date End Date Polo Pearce PA [address] [place] [address] PCP - General Internal Medicine 06/09/21 documented as of this encounter
--- OUTSIDE RECORDS SUMMARY | 2023-09-20 18:38 | XMS_ITS | Encounter Summary ---
Author Organization [facility] [place] [address] Care Team Providers Care Organizational Effectiveness Director Name Role Phone Polo Pearce Primary Care Provider [phone] Encounter Details Date Type Department Care Team (Late st Contact Info) Description 06/13/2021 [place] [address] Ralf Mejia MD [facility] [place] [address] Social History Tobacco Use Types Packs/Day Years [...] Referring provider: Jasiel Caicedo MD Patient location: [facility] Past medical history: HLD HTN Asthma Depression ?Micrvascular disease SVT MARYLOU Diastolic heart failure History 51-year-old female with history as noted above who is just admitted to [facility] for evaluation of angina with discharge 06/08/2021. At that time she initially presented to [facility] where she was noted to have a troponin I of 406 which was flat at 411 on repeat and an elevated BNP. EKG showed nonspecific ST changes in the inferolateral leads. She was transferred to [facility] for further evaluation where she underwent a [...] I and her recent work-up here at [facility] which did not include an ischemic evaluation but did include a transesophageal echocardiogramserial EKGs and serial negative troponins that further work-up at [facility] may be appropriate. Suspect that her symptoms [...] possible microvascular angina. Plan: -Continue management at [facility]. -Recommend stress test at [facility]. -Start metoprolol succinate 25 mg daily with follow-up with cardiology and up titration. -Continue medications as prescribed from her recent discharge. -Planning to get serial troponins and EKGs. If these are markedly changing can reassess and consider transfer to [facility] for further evaluation. Ralf Mejia MD 06/13/2021 12:05 AM documented in this encounter Plan of Treatment Upcoming Encounters Date Type Department Care Team (Late st Contact Info) Description 10/08/2023 8:30 AM EDT Tech Visit Vascular Lab at [place] [phone] Jose Cook 10/08/2023 9:30 AM EDT Office [place] [address] MD [facility] [place] [address] 10/21/2023 10:30 AM EDT Appointment Nuclear Medicine at [place] [phone] Mary Reyes [facility] [place] [address] 10/21/2023 11:30 AM EDT Appointment [place] [phone] Mary Reyes [facility] [place] [address] 10/21/2023 12:30 PM EDT Appointment [place] [phone] Mary Reyes [facility] [place] [address] 10/21/2023 1:30 PM EDT Appointment [place] [phone] Mary Reyes APRN [facility] [place] [address] 10/21/2023 2:30 PM EDT Appointment Nuclear Medicine at [place] [phone] Mary Reyes APRN [facility] [address] 10/26/2023 4:00 PM EDT Office Visit Cardiology at [address] [phone] Jaspreet Kinsey MD [facility] [place] [address] 10/28/2023 9:00 AM EDT Office [place] [address] 10/29/2023 10:00 AM EDT Clinical [place] [address] 10/29/2023 10:15 AM EDT Procedure [place] [address] 11/01/2023 5:00 PM EDT Office Visit Gastroenterology at [place] [phone] Selene Browning, PhD [facility] [place] [address] 11/22/2023 4:40 PM EDT Office Visit Cardiology at [address] [address] Porsha Mcdaniels MD [facility] [place] [address] 12/13/2023 10:00 AM EDT Clinical [place] [address] Lucero Romero, [facility] [place] [address] documented as of this encounter Visit Diagnoses Not on filedocumented in this encounter Care Teams Organizational Effectiveness Director Relationship Specialty Start Date End Date Polo Pearce PA [address] [place] [address] PCP - General Internal Medicine 06/09/21 documented as of this encounter
--- OUTSIDE RECORDS SUMMARY | 2023-09-20 18:38 | XMS_ITS | Encounter Summary ---
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 due to symptomatic SVT with myocardial injury Sandy Serna MD [facility] GENERAL [place] [address] [facility] [address] [place] [phone] Referral ID Status Reason Start Date Expiration Date V isits Requested Visits Authorized [id number] Closed Consult, Test & Treat 06/14/2021 06/14/2022 1 1 Encounter Details Date Type Department Care Team (Late st Contact Info) Description 08/19/2021 3:00 PM EDT Office Visit Cardiology at [address] [phone] Umberto Joy PA [facility] [place] [address] AVNRT (AV makayla re-entry tachycardia) [...] EKGs(ST T-wave abnormalities) but clean cors at [facility] in 2019 and essentially normal echocardiogram(LVEF 61%, [...] anticipated in the future. She lives in [place], [place] and has seen Dr. Kinsey in [place]. Patient Active Problem List Diagnosis ??? 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 Obesity ??? Dyslipidemia ??? MARYLOU on CPAP ??? Restless leg syndrome ??? Insomnia ??? 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 ??? fluticasone propionate (FLONASE) 50 mcg/actuation [place], Suspension 1 spray by Each Nare route [...] 12 lead EK08/19/2021 Sinus bradycardia @ 57; AK 176; QRS 84; QTc 443ms Zio: 06/09/2021 [...] atrial premature beat conducted with a prolonged AK interval, strongly suggestive of atrioventricular makayla reentrant [...] history and diagnostic findings with emphasis on laboratory monitor data. We also discussed risk/benefit of [...] EDT Tech Visit [place] [address] Jose Cook 10/08/2023 9:30 AM EDT Office Visit Vascular Surgery at [place] [phone] MD [facility] [place] [address] 10/21/2023 10:30 AM EDT Appointment Nuclear Medicine at [address]1000 Mary Reyes [facility] [place] [address] 10/21/2023 11:30 AM EDT Appointment Nuclear Medicine at [place] [phone] Mary Reyes [facility] [place] [address] 10/21/2023 12:30 PM EDT Appointment Nuclear Medicine at [place] [phone] Mary Reyes [facility] [place] [address] 10/21/2023 1:30 PM EDT Appointment [place] [address] Mary Reyes [facility] [place] [address] 10/21/2023 2:30 PM EDT Appointment [place] [address] Mary Reyes [facility] [place] [address] 10/26/2023 4:00 PM EDT Office Visit Cardiology at [address] [phone] Jaspreet Kinsey MD [facility] [place] [address] 10/28/2023 9:00 AM EDT Office Visit Gastro[place] [address] 10/29/2023 10:00 AM EDT Clinical Support [place] [address] 10/29/2023 10:15 AM EDT Procedure visit Gastro[place] [address] 11/01/2023 5:00 PM EDT Office Visit [place] [address]-1000 Selene Browning, PhD [facility] [place] [address] 11/22/2023 4:40 PM EDT Office Visit Cardiology at [address] [phone] Porsha Mcdaniels MD [facility] [place] [address] 12/13/2023 10:00 AM EDT Clinical Support [place] [phone] [facility] [place] [address] documented as of this encounter Procedures Procedure [...] (Bezet) 443 ms MUSE SYSTEM Calculated P [place] 49 degrees MUSE SYSTEM Calculated R [place] 63 degrees MUSE SYSTEM Calculated T [place] -60 degrees MUSE SYSTEM INTERPRETATION Sinus bradycardia [...] dysrhythmias documented in this encounter Care Teams Heavy Duty Press Operator Relationship Specialty Start Date End Date Polo Pearce PA [address] [place] [address] PCP - General Internal Medicine 06/09/21 documented as of this encounter
--- OUTSIDE RECORDS SUMMARY | 2023-09-20 18:38 | XMS_ITS | Encounter Summary ---
[place] [address] Care Team Providers Care Transit Worker Name Role Phone Polo Pearce Primary Care Provider [phone] Encounter Details Date Type Department Care Team (Late st Contact Info) Description 03/11/2022 Telephone Cardiology at [address] [phone] Mary Motta, RN Social History Tobacco Use [...] ESTSummary: Pre Procedure Call: SVT Ablation EP ENROLLMENT CONSULTANT COORDINATION CHECKLIST Patient Name: Indira Roque Patient Performing Twist Maker: Jed Tovar Referring Provider: Sobeida Jimenez Date of Procedure: 03/23/22 Arrival Time/ Case Time: 6:00 am / 7:30 am Check In Location: Retail Management Keyholder Desk 4W Date Patient was Called: 03/11/22 [...] overnight , understands that they will need guard driver on day of discharge Notified pt that Esqueda catheter may be placed on day of procedure depending on type & duration of case. Special Notes/Considerations: Given fequent ED visits to [facility] within the past 4 days, will contact pt next week (03/18) to see howsymptoms are progressing. If still having pain, issues will need to reschedule procedure per Dr. Tovar documented in this encounter Plan of Treatment Upcoming Encounters Date Type Department Care Team (Late st Contact Info) Description 10/08/2023 8:30 AM EDT Tech Visit V[place] [address] Jose Cook 10/08/2023 9:30 AM EDT Office Visit [place] [phone] MD [facility] [place] [address] 10/21/2023 10:30 AM EDT Appointment [place] [address] Calvino, Mary M, [facility] [place] [address] 10/21/2023 11:30 AM EDT Appointment Nuclear Medicine at [place] [phone] Mary Reyes [facility] [place] [address] 10/21/2023 12:30 PM EDT Appointment Nuclear Medicine at [place] [phone] Mary Reyes [facility] [place] [address] 10/21/2023 1:30 PM EDT Appointment Nuclear Medicine at [place] [phone] Mary Reyes [facility] [place] [address] 10/21/2023 2:30 PM EDT Appointment [place] [address] Mary Reyes [facility] [place] [address] 10/26/2023 4:00 PM EDT Office Visit Cardiology at [address] [phone] Jaspreet Kinsey MD [facility] [place] [address] 10/28/2023 9:00 AM EDT Office [place] [address] 10/29/2023 10:00 AM EDT Clinical [place] [address] 10/29/2023 10:15 AM EDT Procedure [place] [address] 11/01/2023 5:00 PM EDT Office Visit [place] [phone] Selene Browning, PhD [facility] [place] [address] 11/22/2023 4:40 PM EDT Office Visit Cardiology at [address] [phone] Porsha Mcdaniels MD [facility] [address] 12/13/2023 10:00 AM EDT Clinical Support [place] [address] Lucero Romero, [place] [facility] [place] [address] documented as of this encounter Visit Diagnoses Not on filedocumented in this encounter Care Teams Transit Worker Relationship Specialty Start Date End Date Polo Pearce PA [address] [place] [address] PCP - General Internal Medicine 06/09/21 documented as of this encounter
--- OUTSIDE RECORDS SUMMARY | 2023-09-20 18:38 | XMS_ITS | Encounter Summary ---
Author Organization [facility] Address [facility] [place] [address] Care Team Providers Care Laundry Operator Name Role Phone Polo Pearce Primary Care Provider [phone] Encounter Details Date Type Department Care Team (Late st Contact Info) Description 09/16/2021 Telephone Cardiology at [address] [place] [address] Jaspreet Kinsey MD [facility] [place] [address] Social History Tobacco Use Types Packs/Day Years [...] so can she have it here at [facility]. She left her work number for calling her back during the day: [phone]. Or you may leave a message on her cell phone: [phone]. documented in this encounter Plan of Treatment Upcoming Encounters Date Type Department Care Team (Late st Contact Info) Description 10/08/2023 8:30 AM EDT Tech Visit Vascular Lab at [place] [phone] Jose Cook 10/08/2023 9:30 AM EDT Office Visit [place] [phone] MD [facility] [place] [address] 10/21/2023 10:30 AM EDT Appointment Nuclear Medicine at [place] [phone] [facility] [place] [address] 10/21/2023 11:30 AM EDT Appointment [place] [address] Mary Reyes EXECUTIVE CYBER LEADER [facility] [place] [address] 10/21/2023 12:30 PM EDT Appointment [place] [address] Mary Reyes EXECUTIVE CYBER LEADER [facility] [place] [address] 10/21/2023 1:30 PM EDT Appointment Nuclear Medicine at [place] [phone] Mary Reyes, [facility] [place] [address] 10/21/2023 2:30 PM EDT Appointment [place] [address] [facility] [place] [address] 10/26/2023 4:00 PM EDT Office Visit Cardiology at [address] [phone] Jaspreet Kinsey MD [facility] [place] [address] 10/28/2023 9:00 AM EDT Office [place] [address] 10/29/2023 10:00 AM EDT Clinical [place] [address] 10/29/2023 10:15 AM EDT Procedure [place] [address] 11/01/2023 5:00 PM EDT Office Visit [place] [address] Selene Browning, PhD [facility] [place] [address] 11/22/2023 4:40 PM EDT Office Visit Cardiology at [address] [phone] Porsha Mcdaniels MD [facility] [place] [address] 12/13/2023 10:00 AM EDT Clinical Support [place] [phone] [facility] [place] [address] documented as of this encounter Visit Diagnoses Not on filedocumented in this encounter Care Teams Laundry Operator Relationship Specialty Start Date End Date Polo Pearce PA [address] [place] [address] PCP - General Internal Medicine 06/09/21 documented as of this encounter
--- OUTSIDE RECORDS SUMMARY | 2023-09-20 18:38 | XMS_ITS | Encounter Summary ---
Author Organization [facility] Address [facility] [place] [address] Care Team Providers Care Filling Hand Name Role Phone Polo Pearce Primary Care Provider [phone] Encounter Details Date Type Department Care Team (Late st Contact Info) Description 06/13/2021 Telephone Cardiology at [address] [place] [address] Chayo Dominguez [place] [facility] [place] [address] Social History Tobacco Use Types Packs/Day Years [...] Referring Provider: Dr. Gale Trinh Patient Location: [facility] See Dr. Mejia's telephone encounter note for [...] Of note, she was recently admitted to [facility] for evaluation of angina and discharged 06/08/21. At that time she initially presented to [facility] where she was noted to have a troponin I of 406 which was flat at 411 on repeat and an elevated BNP. EKG showed nonspecific ST changes in the inferolateral leads. She was transferred to [facility] for further evaluation where she underwent a [...] management. Chayo Chappell PA-C Cardiovascular Medicine Pager [phone] 06/13/2021 documented in this encounter Plan of Treatment Upcoming Encounters Date Type Department Care Team (Late st Contact Info) Description 10/08/2023 8:30 AM EDT Tech Visit [place] [phone] Jose Cook 10/08/2023 9:30 AM EDT Office Visit [place] [phone] MD [facility] [place] [address] 10/21/2023 10:30 AM EDT Appointment [place] [phone] Mary Reyes APRN [facility] [place] [address] 10/21/2023 11:30 AM EDT Appointment [place] [address] Mary Reyes APRN [facility] [place] [address] 10/21/2023 12:30 PM EDT Appointment [place] [address] Mary Reyes [facility] [place] [address] 10/21/2023 1:30 PM EDT Appointment [place] [address] Mary Reyes, [facility] [address] 10/21/2023 2:30 PM EDT Appointment [place] [address] Mary Reyes [facility] [place] [address] 10/26/2023 4:00 PM EDT Office Visit Cardiology at [address] [phone] Jaspreet Kinsey MD [facility] [place] [address] 10/28/2023 9:00 AM EDT Office [place] [address] 10/29/2023 10:00 AM EDT Clinical [place] [address] 10/29/2023 10:15 AM EDT Procedure [place] [address] 11/01/2023 5:00 PM EDT Office Visit Gastroenterology at [place] [phone] Selene Browning, PhD [facility] [place] [address] 11/22/2023 4:40 PM EDT Office Visit Cardiology at [address]1000 Porsha Mcdaniels MD [facility] [place] [address] 12/13/2023 10:00 AM EDT Clinical Support Gastroenterology at [place] [phone] Lucero Romero, [place] [facility] [place] [address] documented as of this encounter Visit Diagnoses Not on filedocumented in this encounter Care Teams Filling Hand Relationship Specialty Start Date End Date Polo eParce PA [address] [place] [address] PCP - General Internal Medicine 06/09/21 documented as of this encounter
--- OUTSIDE RECORDS SUMMARY | 2023-09-20 18:38 | XMS_ITS | Encounter Summary ---
Author Organization [facility] [place] [address] Care Team Providers Care Water Tanker Driver Name Role Phone Polo Pearce Primary Care Provider [phone] Encounter Details Date Type Department Care Team (Late st Contact Info) Description 12/30/2021 Telephone Cardiology at [address] [phone] Ciro Lovell MD [facility] [place] [address] Social History Tobacco Use Types Packs/Day Years [...] 51 year old female with mild PAH ([facility] 06/2021) without e/o parenchymal lung disease or L-sided dysfunction, ? Prior AR, C2 obesity, spastic lung disease and MARYLOU/HS [...] mild restriction, normal diffusion; no volumes done [facility] 2019 clean coronaries [facility] 06/2021 Hemodynamics: Right [...] Tech [place] [phone] Jose Cook 10/08/2023 9:30 AM EDT Office Visit [place] [phone] MD [facility] [place] [address] 10/21/2023 10:30 AM EDT Appointment [place] [phone] Mary Reyes APRN [facility] [place] [address] 10/21/2023 11:30 AM EDT Appointment [place] [phone] Mary Reyes APRN [facility] [place] [address] 10/21/2023 12:30 PM EDT Appointment [place] [phone] Mary Reyes, [facility] [place] [address] 10/21/2023 1:30 PM EDT Appointment [place] [address] Mary Reyes [facility] [place] [address] 10/21/2023 2:30 PM EDT Appointment [place] [phone] Mray Reyes, [facility] [place] [address] 10/26/2023 4:00 PM EDT Office Visit Cardiology at [address] [phone] Jaspreet Kinsey MD [facility] [place] [address] 10/28/2023 9:00 AM EDT Office [place] [address] 10/29/2023 10:00 AM EDT Clinical [place] [address] 10/29/2023 10:15 AM EDT Procedure [place] [address] 11/01/2023 5:00 PM EDT Office [place] [phone] Selene Browning, PhD [facility] [place] [address] 11/22/2023 4:40 PM EDT Office Visit Cardiology at [address] [phone] Porsha Mcdaniels MD [facility] [place] [address] 12/13/2023 10:00 AM EDT Clinical Support [place] [phone] [facility] [place] [address] documented as of this encounter Visit Diagnoses Not on filedocumented in this encounter Care Teams Water Tanker Driver Relationship Specialty Start Date End Date Polo Peacre PA Sb MOTT [address] [place] [phone] PCP - General Internal Medicine 06/09/21 documented as of this encounter
--- OUTSIDE RECORDS SUMMARY | 2023-09-20 18:38 | XMS_ITS | Encounter Summary ---
Author Organization [facility] [place] [address] Care Team Providers Care Vasc Tech Name Role Phone Polo Pearce Primary Care Provider [phone] Reason for Visit * Auth/Cert Specialty Diagnoses / Procedures Referred By Jayant harris Referred To Contact Diagnoses NSTEMI (non-ST elevated myocardial infarction) Chest Pain Procedures EMERGENCY IPI Sobeida Jimenez MD [facility] [place] [address] [facility] Referral ID Status Reason Start Date Expiration Date Visits Re quested Visits Authorized [id number] 1 1 Encounter Details Date Type Department Care Team (Latest Contact Info) Description 12/30/2021 10:41 PM EDT - 01/01/2022 2:24 PM EDT Hospital Encounter [place] [address] Sobeida Jimenez MD [facility] [address] [place] [id number] SVT (supraventricular tachycardia); Non-ST elevation WI (NSTEMI); NSTEMI (non-ST elevated myocardial infarction); Acute [...] Loida Madrigal Patient Age: 51 y.o. Language: Qatari Race: White Ethnicity: Not nor Admit date: 12/30/2021 Discharge date and time: 01/01/2022 Attending Physician: Sobeida Jimenez MD Discharge Physician: Sobeida Jimenez MD ID: Loida Madrigal is a 51 y.o. female w/ PMH of AVNRT, HFpEF, asthma, MARYLOU, obesity, mild PAH([facility] 06/2021) who presents today in transfer for [...] JOCY Franco [address] / [facility] [address] Pending Studies and Lab Data: Official Ankle [...] preserved ejection fraction 05/2021: subacute, presented to [facility] with RUQ pain, weight gain, and progressive dyspnea. Noted to caryr most fluid in abdomen ??? Restless legs ??? Non-ST elevation WI (NSTEMI) ??? Asthma ??? Rhinitis, nonallergic, chronic [...] plavix 600 with plan to transfer to [facility] for furthermanagement. Pertinent prior studies below: ?? [...] Type II Patient initially presented to the [facility] ED on 12/30 with chest pain. Initial [...] 12/31/2021 06:52 AMBP: 109/62 mmHg Patient Location: [facility]^C450^B : 1970 Height: 163 cm Account: [id number] Age: 51 yrs Weight: 100 kg Gender: Female BSA: 2.0 m2 Ordering Physician: SOBEIDA JIMENEZ Referring Physician: KARIN ESPINOSA Performed By: HAIM Harris Reason For Study: Acute on chronic heart failure with preserved ejection fraction Exam Location: [facility]. Interpretation Summary -Left ventricle is of normal [...] the prior study from 06/09/21 ?? Procedure Complete-[id number]. Satisfactory quality. There is sinus bradycardia. ?? [...] who have questions please contact the health coronary care unit nurse that requested 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 Discharge Conditions/Prognosis: [...] scheduled with both your PCP and your technical services representative in the outpatient setting within the next [...] appointments: During 8am-5pm Wednesday through Wednesday call [phone] to speak with a nurse in the cardiology clinic All other times call [phone] and ask to speak to the surgeon chief public transportation inspector. Follow up Appointments: Future Appointments Date Time Provider Department Center 01/21/2022 9:00 AM Jaspreet Kinsey MD [facility] 01/12/2022, Appointment with Mr. Polo Pearce Community Recreation Programmer: Dr. Jaspreet Kinsey PCP: JOCY Franco at [phone] Your Inpatient Doctor(s) at [facility]: Sobeida Jimenez MD - Attending physician Dr. Paris Guerra MD - Resident Physician Dr. Yoselin Gómez DO, Resident Physician Dr. Edwin Mcghee MD, Fellow Physician Your Primary Care Provider: JOCY Franco DR [facility] [address] For questions regarding issues relating to your hospitalization on the Hospital Medicine Service, please contact your inpatient physician through the [facility] Benefits Clerk [phone]. Issues after hours and on weekends will be handled by the Hospitalist staff on-call. General Instructions None Future Appointments and Orders Future Appointments and Orders Future Appointments Provider Department Dept Phone 01/21/2022 9:00 AM Jaspreet Kinsey MD Cardiology at [place] Arrive at: [facility] [address] [phone] Inpatient Provider Contact Information: Deven Guerra Jr, MD Internal Medicine, PGY-3 [facility], pager [phone] Discharge References/Attachments: Discharge References/Attachments None documented in [...] scheduled with both your PCP and your technical services representative in the outpatient setting within the next [...] appointments: During 8am-5pm Wednesday through Wednesday call [phone] to speak with a nurse in the cardiology clinic All other times call [phone] and ask to speak to the surgeon chief public transportation inspector. Follow up Appointments: Future Appointments Date Time Provider Department Center 01/21/2022 9:00 AM Jaspreet Kinsey MD [facility] 01/12/2022, Appointment with Mr. Polo Pearce Community Recreation Programmer: Dr. Jaspreet Kinsey PCP: JOCY Franco at [phone] Your Inpatient Doctor(s) at [facility]: Sobeida Jimenez MD - Attending physician Dr. Paris Guerra MD - Resident Physician Dr. Yoselin Gómez DO, Resident Physician Dr. Edwin Mcghee MD, Fellow Physician Your Primary Care Provider: JOCY Franco [address] / [facility] [address] For questions regarding issues relating to your hospitalization on the Hospital Medicine Service, please contact your inpatient physician through the [facility] Benefits Clerk [phone]. Issues after hours and on weekends will [...] as needed. fluticasone propionate (FLONASE) 50 mcg/actuation [place], Suspension 1 spray by Each Nare route [...] Guerra Jr, MD 01/01/22 2:12 PM * Delmi Kim RCP - 12/31/2021 2:44 AM EDTSummary: [...] 1970 PCP: JOCY Franco PCP phone number: [phone] Date of Admission: 12/30/2021 ( Hospital Day 1 day ) Attending:Sobeida Jimenez MD ID: Loida Madrigal is a 51 y.o. female w/ PMH of AVNRT, HFpEF, asthma, MARYLOU, obesity, mild PAH([facility] 06/2021) who presents today in transfer for evaluation of chest pain. Patient Active Problem List Diagnosis ??? NSTEMI (non-ST elevated myocardial infarction) ??? 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 Obesity ??? Dyslipidemia ??? Obstructive sleep apnea syndrome ??? Insomnia ??? (HFpEF) heart failure with preserved ejection fraction Overview Note: 05/2021: subacute, presented to [facility] with RUQ pain, weight gain, and progressive dyspnea. Noted to caryr most fluid in abdomen ??? Restless legs ??? Non-ST elevation WI (NSTEMI) ??? Asthma ??? Rhinitis, nonallergic, chronic [...] plavix 600 with plan to transfer to [facility] for furthermanagement. Pertinent prior studies below: ?? 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 ??? fluticasone propionate (FLONASE) 50 mcg/actuation [place], Suspension 1 spray by Each Nare route [...] ??? heparin (porcine) infusion 1,000 Units/hr (12/30/21 8707) PRN Meds: lidocaine, nitroGLYcerin, sodium chloride 0.9 [...] CP and palpitations LH 2019: normal cors [facility] 2021: mild PHTN, mPA 24, CI 1.57 [...] Pt up to toilet. Diet order placed, cardiac/[facility] diet. PRN ibuprofen ordered and given to [...] COVID test: Lab Results Component Value Date [id number] Not Detected 06/13/2021 Present on Admission: ??? 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 Current Living Arrangements: home/apartment/condo. Accessibility Concerns:no concerns. Current DME: none [address] [facility] [address] Social & Family Supports: Extended Emergency Contact [...] private car when medically ready. Registered Nurse Assistant Plant Manager / Mr Teacher will continue to follow patient???s progress and remain available if situation changes for coordination of care, psychosocial support and/or discharge planning. Office of Care Management documented in this encounter Plan of Treatment Upcoming Encounters Date Type Department Care Team (Late st Contact Info) Description 10/08/2023 8:30 AM EDT Tech [place] [phone] Jose Cook 10/08/2023 9:30 AM EDT Office Visit [place] [phone] MD [facility] [place] [address] 10/21/2023 10:30 AM EDT Appointment Nuclear Medicine at [place] [address] Mary Reyes, [facility] [address] 10/21/2023 11:30 AM EDT Appointment Nuclear Medicine at [address] Mary Reyes [facility] [place] [address] 10/21/2023 12:30 PM EDT Appointment Nuclear Medicine at [place] [phone] Mary Reyes [facility] [place] [address] 10/21/2023 1:30 PM EDT Appointment Nuclear Medicine at [place] [phone] Mary Reyes [facility] [place] [address] 10/21/2023 2:30 PM EDT Appointment [place] [phone] Mary Reyes [facility] [place] [address] 10/26/2023 4:00 PM EDT Office Visit Cardiology at [address] [phone] Jaspreet Kinsey MD [facility] [place] [address] 10/28/2023 9:00 AM EDT Office Visit [place] [address] 10/29/2023 10:00 AM EDT Clinical Support [place] [address] 10/29/2023 10:15 AM EDT Procedure visit [place] [address] 11/01/2023 5:00 PM EDT Office Visit [place] [phone] Selene Browning, PhD [facility] [address] [place] [id number] 11/22/2023 4:40 PM EDT Office Visit Cardiology at [address] [address] Porsha Mcdaniels MD [facility] [place] [address] 12/13/2023 10:00 AM EDT Clinical Support [place] [address] [facility] [place] [address] documented as of this encounter Procedures Procedure [...] who have questions please contact the health coronary care unit nurse that requested 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 ? [...] patients who have questions please contactthe health coronary care unit nurse that requested 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 Sobeida Jimenez MD IMG DX ORDERABLES * Magnesium (01/01/2022 8:56 AM EDT) Magnesium 0.96 0.69 - 1.07 mmol/L [facility] Blood 01/01/2022 8:56 AM EDT 01/01/2022 9:19 AM EDT Narrative Resulting Agency Comment Spec In Lab Sobeida Jimenez [place] [address] * Differential, Automated (01/01/2022 4:15 AM EDT) Neutrophils % 59.8 % [facility] Neutr Abs (ANC) 3.72 1.70 - 6.10 x10(3)/[facility] Lymphocytes % 26.0 % [facility] Lymphocytes Abs 1.6 0.9 - 3.2 x10(3)/[facility]ORY Monocytes % 8.7 % [facility] Monocyte Abs 0.5 0.3 - 0.9 x10(3)/[facility]ORATORY Eosinophils % 4.5 % [facility] Eosinophils Abs 0.3 0.0 - 0.4 x10(3)/[facility]ORATORY Basophils % 0.8 % [facility] Basophils Abs 0.0 0.0 - 0.1 x10(3)/[facility]ORATORY Immature Gran % 0.20 % [facility] Comment: Immature granulocytes(IG's)percentage and absolute count will include metamyelocytes, myelocytes, and promyelocytes. Blood smears from CBCs yielding IG's will be scanned manually for concordance. If this scan disagrees with the automated IG or if promyelocytes are noted, a manual differential will be performed. Shonda Gran Abs 0.01 0.00 - 0.04 x10(3)/[facility] Blood 01/01/2022 4:15 AM EDT 01/01/2022 4:23 AM EDT Narrative Resulting Agency Comment Spec In Lab Lorna Haider MD HEMATOLOGY ORDERABL ES Performing Organization Address City/[facility]/[place] [address] * Hemogram (01/01/2022 4:15 AM EDT) WBC 6.2 4.0 - 9.5 x10(3)/[facility] LABORATORY RBC 4.43 4.00 - 5.21 x10(6)/[facility] Hemoglobin 13.9 11.7 - 15.5 g/dL [facility] Hematocrit 41.3 35.7 - 45.8 % [facility] MCV 93.2 82.6 - 94.4 fL [facility] MCH 31.4 27.1 - 32.0 pg [facility] MCHC 33.7 31.7 - 35.0 g/dL [facility] Platelets 204 145 - 357 x10(3)/[facility] LABORATORY RDWSD 43.4 37.0 - 46.0 [facility] LABORATORY RDWCV 12.6 11.5 - 14.1 % [facility] MPV 10.6 7.6 - 12.9 [facility] LABORATORY nRBC % Auto 0.0 % [facility] nRBC Abs Auto 0.000 0.000 - 0.000 x10(3)/[facility] Blood 01/01/2022 4:15 AM EDT 01/01/2022 4:23 AM EDT Narrative Resulting Agency Comment Spec In Lab Lorna Haider MD HEMATOLOGY ORDERABL ES [facility] [place] [address] * (ABNORMAL) Basic Metabolic Panel (non-fasting) (01/01/2022 4:15 AM EDT) Pathologist [facility] Glucose Lvl 103 65 - 199 mg/dL [facility] Comment:Diabetes: >=200 mg/d L plus symptoms BUN 26(H) 8 - 18 mg/dL [facility] Creatinine 1.04 0.70 - 1.20 mg/dL [facility] Sodium 137 135 - 145 mmol/L [facility] Potassium 4.0 3.5 - 5.0 mmol/L [facility] Comment: Please note: ??Patients with WBC >100,000 may have falsely elevated Potassium levels. ??For accurate Potassium quantification in these patients send serum separator tube (gold top) for subsequent determinations. ??Contact the Clinical Chemistry Laboratory if there are any questions. Chloride 109(H) 98 - 107 mmol/L [facility] CO2 15(L) 22 - 31 mmol/L [facility] Anion Gap 13 5 - 15 mmol/L [facility] Calcium 8.9 8.5 - 10.5 mg/dL [facility] Estimated GFR 65 >=60 mL/min/1. 73 m?? [facility] Comment: This patient's estimated [...] In Lab Sobeida Jimenez MD CHEMISTRY ORDERABLES [facility] [place] [address] * ECHO COMPLETE (12/31/2021 8:02 AM EDT) Anatomical Region Laterality Modality Cardiac Other 12/31/2021 6:52 AM EDT Narrative 12/31/2021 8:30 AM EDT ? Echocardiogram Report Name: LIODA MADRIGAL ? Study Date: 12/31/2021 06:52 AMBP: 109/62 mmHg ? [facility] 1970 ? Height: 163 cm ? Account: [id number] Age: 51 yrs ? Weight: 100 kg Gender: Female ?BSA: 2.0 m2 Ordering Physician: SOBEIDA JIMENEZ Referring Physician: KARIN ESPINOSA Performed By: HAIM Harris Reason For Study: Acute on chronic heart failure with preserved ejection fraction Exam Location: [facility]. Interpretation Summary -Left ventricle is of normal [...] to the prior study from 06/09/21 Procedure Complete-[id number]. Satisfactory quality. There is sinus bradycardia. Left [...] Study Date: 206:52 AMBP: 109/62 mmHg Patient Location:[facility]^C450^B : 1970 Height: 163 cm Account: [id number] Age: 51 yrs Weight: 100 kg Gender: Female BSA: 2.0 m2 Ordering Physician: SOBEIDA JIMENEZ Referring Physician: KARIN ESPINOSA Performed By: HAIM Harris Reason For Study: Acute on chronic heart failure with preserved ejectionfraction Exam Location: [facility]. Interpretation Summary -Left ventricle is of normal [...] to the prior study from 06/09/21 Procedure Complete-[id number]. Satisfactory quality. There is sinus bradycardia. Left [...] AM EDT) Heparin UFH Level 0.43 IU/mL [facility] Comment: Heparin (anti-Xa) levels [...] MD HEMATOLOGY ORDERABLE S Performing Organization Address [facility] de Phone Number [facility] [place] [address] * T4, free (12/31/2021 7:01 AM EDT) Free T4 1.16 0.93 - 1.70 ng/dL [facility] Comment: Reference Interval (ng/dL): Females: ??First Trimester: 0.97-1.68 ??Second Trimester: 0.77-1.51 ??Third Trimester: 0.77-1.49 Blood 12/31/2021 7:01 AM EDT 12/31/2021 7:11 AM EDT Narrative Resulting Agency Comment Spec In Lab Sobeida Jimenez MD CHEMISTRY ORDERABLES Performing Organization Address [facility] de Phone Number [facility] [place] [place] [address] * (ABNORMAL) Troponin (12/31/2021 3:28 AM EDT) Pathologist [facility] Troponin-T HS 21(H) <=14 ng/L [facility] Comment: This patient's troponin [...] troponin value can be found in the [facility] Laboratory Test Catalog Troponin - [facility] Laboratory Test Catalog Reference: Fourth [place] Definition of Myocardial Infarction. Journal of the [place] College of [employer]iology 2018;72:1936-2512 Blood 12/31/2021 3:28 AM EDT 12/31/2021 4:31 AM EDT Narrative Resulting Agency Comment Spec In Lab Sobeida Jimenez [place] [address] * EKG 12 Lead (12/31/2021 3:23 AM EDT) Ventricular rate 44 BPM MUSE SYSTEM Atrial Rate 44 BPM MUSE SYSTEM P-R Interval 190 ms MUSE SYSTEM QRS Duration 86 ms MUSE SYSTEM Q-T Interval 562 ms MUSE SYSTEM QTC Calculated (Bezet) 480 ms MUSE SYSTEM Calculated P [place] 32 degrees MUSE SYSTEM Calculated R [place] 58 degrees MUSE SYSTEM Calculated T [place] 24 degrees MUSE SYSTEM INTERPRETATION Marked sinus bradycardia Possible Lateral infarct (cited on or before 30-DEC-2021) Nonspecific ST and T wave abnormality Prolonged QT Abnormal ECG When compared with ECG of 30-DEC-2021 22:45, No significant change was found I personally reviewed the tracing and edited the fellows interpretation Confirmed by fellow MD Rosalinda, Alejandro ([id number]) on 12/31/2021 9:13:46 PM Confirmed by MD Angelo Danette ([id number]) on 01/01/2022 7:24:12 AM MUSE SYSTEM 12/31/2021 3:23 AM EDT 01/01/2022 7:24 AM EDT Sobeida Jimenez MD ECG ORDERABLES MUSE SYSTEM * Heparin (unfractionated) Level (12/31/2021 12:20 AM EDT) Pathologist [facility] Heparin UFH Level 0.40 IU/mL [facility] Comment: Specimen drawn more than [...] MD HEMATOLOGY ORDERABLE S Performing Organization Address City/[facility]/ZIP Co de Phone Number [facility] [place] [phone] * Differential, Automated (12/31/2021 12:20 AM EDT) Pathologist [facility] Neutrophils % 57.0 % [facility] Neutr Abs (ANC) 4.48 1.70 - 6.10 x10(3)/[facility] LABORATORY Lymphocytes % 32.4 % [facility] Lymphocytes Abs 2.6 0.9 - 3.2 x10(3)/[facility] LABORATORY Monocytes % 6.4 % [facility] Monocyte Abs 0.5 0.3 - 0.9 x10(3)/[facility] LABORATORY Eosinophils % 3.3 % [facility] Eosinophils Abs 0.3 0.0 - 0.4 x10(3)/[facility] LABORATORY Basophils % 0.5 % [facility] Basophils Abs 0.0 0.0 - 0.1 x10(3)/[facility] LABORATORY Immature Gran % 0.40 % [facility] Comment: Immature granulocytes(IG's)percentage and absolute count will include metamyelocytes, myelocytes, and promyelocytes. Blood smears from CBCs yielding IG's will be scanned manually for concordance. If this scan disagrees with the automated IG or if promyelocytes are noted, a manual differential will be performed. Shonda Gran Abs 0.03 0.00 - 0.04 x10(3)/[facility] Blood 12/31/2021 12:2 0 AM EDT 12/31/2021 12:41 AM EDT Narrative Resulting Agency Comment Spec In Lab Lorna Haider MD HEMATOLOGY ORDERABL ES [facility] [place] [address] * Hemogram (12/31/2021 12:20 AM EDT) WBC 7.9 4.0 - 9.5 x10(3)/[facility] LABORATORY RBC 4.24 4.00 - 5.21 x10(6)/[facility] LABORATORY Hemoglobin 13.3 11.7 - 15.5 g/dL [facility] Hematocrit 39.1 35.7 - 45.8 % [facility] MCV 92.2 82.6 - 94.4 fL [facility] MCH 31.4 27.1 - 32.0 pg [facility] MCHC 34.0 31.7 - 35.0 g/dL [facility] Platelets 209 145 - 357 x10(3)/[facility] RDWSD 43.2 37.0 - 46.0 fL [facility] RDWCV 12.8 11.5 - 14.1 % [facility] MPV 11.2 7.6 - 12.9 fL [facility] nRBC % Auto 0.0 % [facility] nRBC Abs Auto 0.000 0.000 - 0.000 x10(3)/mcL [facility] Blood 12/31/2021 12:2 0 AM EDT 12/31/2021 12:41 AM EDT Narrative Resulting Agency Comment Spec In Lab Lorna Haider MD HEMATOLOGY ORDERABL ES [facility] [place] [address] * (ABNORMAL) Troponin (12/31/2021 12:20 AM EDT) Troponin-T HS 19(H) <=14 ng/L [facility] Comment: This patient's troponin [...] troponin value can be found in the [facility] Laboratory Test Catalog Troponin - [facility] Laboratory Test Catalog Reference: Fourth [place] Definition of Myocardial Infarction. Journal of the [place] College of Cardiology 2018;72:6962-7567 Blood 12/31/2021 12:2 0 AM EDT 12/31/2021 12:41 AM EDT Narrative Resulting Agency Comment Spec In Lab Sobeida Jimenez MD CHEMISTRY ORDERABLES [facility] [place] [address] * (ABNORMAL) Hemoglobin A1c (12/31/2021 12:20 AM EDT) Hemoglobin A1C 5.7(H) 4.3 - 5.6 % [facility] Comment: Reference Range: 4.3 [...] 1, S67-74 Est Avg Gluc 118 mg/dL [facility] [...] into estimated average glucose values. ??Diabetes Care 2008:31(8):6233-4234. Blood 12/31/2021 12:2 0 AM EDT 12/31/2021 12:42 AM EDT Narrative Resulting Agency Comment Spec In Lab Sobeida Jimenez MD CHEMISTRY ORDERABLES [facility] [place] [place] [address] * Lipid Panel (Reflex Direct LDL) (12/31/2021 12:20 AM EDT) Chol, Total 122 mg/dL [facility] Comment: Lower Risk: <200 mg/dL Average Risk: 200-239 mg/dL Higher Risk: >ef=868 mg/dL Triglycerides 111 mg/dL [facility] Comment: Average Risk/Lower Risk: <150 mg/dL Borderline High Risk: 150-199 mg/dL High Risk: 200-499 mg/dL Very High Risk: >dc=366 mg/dL HDL 35 mg/dL [facility] Comment: Males: ?? Higher Risk: <40 mg/dL Females: ?? Higher Risk: <50 mg/dL LDL Cholesterol 65 mg/dL [facility] [facility] Comment: Lowest Risk: <100 mg/dL Lower Risk: 100-129 mg/dL Borderline High Risk: 130-159 mg/dL High Risk: 160-189 mg/dL Very High Risk: >it=109 mg/dL Chol/HDL Ratio 3.5 ratio [facility] Lipid Interpretation See Note [facility] Comment: Lipid management should be guided by a patient? s ASCVD risk, goals and preferences. ACC/AHA Guidelines recommend high intensity statin if clinical ASCVD or LDL greater than or equal to 190 mg/dL. http://[employer] Sciencesurl.com/SSG-TQF-Hcmxfzfiu Adults aged 40-75 with LDL 70-189 mg/dL should have their 10 year ASCVD risk estimated with the ACC/AHA ASCVD risk set up mechanic http://tools.acc.org/ZWKAG-Vrnh-Krysagqvh/ Statin should be discussed if risk greater [...] Jimenez MD CHEMISTRY ORDERABLES Performing Organization Address [facility] Co de Phone Number [facility] [place] [place] [address] * (ABNORMAL) APTT (12/31/2021 12:20 AM EDT) PTT 90(H) 25 - 37 sec [facility] Comment: The PTT is NOT appropriate for heparin monitoring. Use the Anti-Xa level for heparin monitoring (HEP UFH) or LMWH monitoring (HEP LMW). A PTT less than 37 seconds generally indicates adequate hemostasis. Blood 12/31/2021 12:2 0 AM EDT 12/31/2021 12:41 AM EDT Narrative Resulting Agency Comment Spec In Lab Sobeida Jimenez MD HEMATOLOGY ORDERABLE S Performing Organization Address [facility] Co de Phone Number [facility] [place] [address] * Prothrombin Time (12/31/2021 12:20 AM EDT) PT 12.5 9.4 - 12.5 sec [facility] INR 1.1 [facility] Comment: An INR [...] MD HEMATOLOGY ORDERABLE S Performing Organization Address City/[facility]/ZIP Co de Phone Number [facility] [place] [place] [address] * (ABNORMAL) pro-Brain Natriuretic Peptide (12/31/2021 12:20 AM EDT) ProBNP 2,515(H) <=124 pg/mL [facility] Blood 12/31/2021 12:2 0 AM EDT 12/31/2021 12:41 AM EDT Narrative Resulting Agency Comment Spec In Lab Sobeida Jimenez MD CHEMISTRY ORDERABLES Performing Organization Address [facility] Co de Phone Number [facility] [place] [place] [address] * (ABNORMAL) TSH (12/31/2021 12:20 AM EDT) TSH 7.36(H) 0.27 - 4.20 mcIU/mL [facility] Comment: Reference Interval (mcIU/mL): Females: ??First Trimester: 0.23-3.88 ??Second Trimester: 0.22-3.90 ??Third Trimester: 0.44-4.66 Blood 12/31/2021 12:2 0 AM EDT 12/31/2021 12:41 AM EDT Narrative Resulting Agency Comment Spec In Lab Sobeida Jimenez MD CHEMISTRY ORDERABLES Performing Organization Address [facility]/ZIP Co de Phone Number [facility] [place] [place] [address] * Phosphorus (12/31/2021 12:20 AM EDT) Phosphorus 3.5 2.5 - 4.5 mg/dL [facility] Blood 12/31/2021 12:2 0 AM EDT 12/31/2021 12:41 AM EDT Narrative Resulting Agency Comment Spec In Lab Sobeida Jimenez MD CHEMISTRY ORDERABLES Performing Organization Address City/[facility]/ZIP Co de Phone Number [facility] [place] [place] [address] * Magnesium (12/31/2021 12:20 AM EDT) Pathologist [facility] Magnesium 0.87 0.69 - 1.07 mmol/L [facility] Blood 12/31/2021 12:2 0 AM EDT 12/31/2021 12:41 AM EDT Narrative Resulting Agency Comment Spec In Lab Sobeida Jimenez MD CHEMISTRY ORDERABLES Performing Organization Address City/[facility]/ZIP Co de Phone Number [facility] [place] [place] [address] * (ABNORMAL) Basic Metabolic Panel (non-fasting) (12/31/2021 12:20 AM EDT) Pathologist [facility] Glucose Lvl 88 65 - 199 mg/dL [facility] Comment:Diabetes: >=200 mg/d L plus symptoms BUN 22(H) 8 - 18 mg/dL [facility] Creatinine 0.95 0.70 - 1.20 mg/dL [facility] Sodium 140 135 - 145 mmol/L [facility] Potassium 4.1 3.5 - 5.0 mmol/L [facility] Comment: Please note: ??Patients with WBC >100,000 may have falsely elevated Potassium levels. ??For accurate Potassium quantification in these patients send serum separator tube (gold top) for subsequent determinations. ??Contact the Clinical Chemistry Laboratory if there are any questions. Chloride 110(H) 98 - 107 mmol/L [facility] CO2 17(L) 22 - 31 mmol/L [facility] Anion Gap 13 5 - 15 mmol/L [facility] Calcium 8.5 8.5 - 10.5 mg/dL [facility] Estimated GFR 72 >=60 mL/min/1. 73 m?? [facility] Comment: This patient's estimated [...] In Lab Sobeida Jimenez MD CHEMISTRY ORDERABLES [facility] [place] [address] documented in this encounter Visit Diagnoses Diagnosis SVT (supraventricular tachycardia) Other specified cardiac dysrhythmias Non-ST elevation [place] (NSTEMI) Acute myocardial infarction, unspecified site, episode [...] Heparin UFH Level - Per Protocol, Routine 4006 (New Bag - Provider: Patricia Jacobs RN) 0791 (Stopped - Provider: Angelina Oquendo RN) PRN [...] Routine documented in this encounter Care Teams Vasc Tech Relationship Specialty Start Date End Date Polo Pearce PA [address] [place] [address] PCP - General Internal Medicine 06/09/21 documented as of this encounter
--- OUTSIDE RECORDS SUMMARY | 2023-09-20 18:38 | XMS_ITS | Encounter Summary ---
Author Organization [facility] [place] [address] Care Team Providers Care Renewals Specialist Name Role Phone Polo Pearce Primary Care Provider [phone] Reason for Referral * Consultation (Routine) - Closed Specialty Diagnoses / Procedures Referred By Contact Referred To Contact Electrophysiology / Cardiology Diagnoses Supraventricular tachycardia evaluation for AVNRT ablation due to symptomatic SVT with myocardial injury Sandy Serna MD [facility] [place] [address] [facility] Cardiology [address] [place] [phone] Referral ID Status Reason Start Date Expiration Date V isits Requested Visits Authorized [id number] Closed Consult, Test & Treat 06/14/2021 06/14/2022 1 1 Reason for Visit * Auth/Cert Specialty Diagnoses / Procedures Referred By Jayant harris Referred To Contact Diagnoses NSTEMI (non-ST elevated myocardial infarction) NSTEMI Procedures EMERGENCY IPI Referral ID Status Reason Start Date Expiration Date Visits Re quested Visits Authorized [id number] 1 1 Encounter Details Date Type Department Care Team (Latest Contact Info) Description 06/13/2021 12:35 PM EDT - 06/14/2021 1:22 PM EDT Hospital Encounter [place] [address] Jose Rodrigues MD [facility] [place] [address] Chest pain, unspecified type; Supraventricular tachycardia; Chest [...] depressions on EKG. Indira was transferred to [facility] for further evaluation. ?? Of note, the patient was just released from [facility] for chest pain on Wednesday06/09/2021. During that [...] at 0.04 consistent with myocardial injury pattern. [facility] was not pursued as the patient was CP free, has suspected microvascular disease from [facility] 18 months ago and episode was triggered [...] 8:20 AM Jaspreet Kinsey MD Cardiology at [place] Arrive at: [facility] [address] [phone] Future Orders Complete By Expires NM PET CT Cardiac Pharmacologic Stress and Rest [[id number] Custom] 06/14/2021 10/14/2021 Process Instructions: Scheduling Instructions: Questions: Where will study be performed?: [facility] Radiology Reason for exam and clinical history: concern for microvascular disease vs CAD Clinical information / chavis questions for radiologist: Is the patient ?: No Initial treatment or subsequent treatment?: Stat read required?: Does patient require sedation?: GA rationale: Date of injury if applicable: Requested Time: NM PET CT Cardiac Pharmacologic Stress CT Component [[id number] Custom] 06/14/2021 10/14/2021 Process Instructions: Scheduling Instructions: Questions: Where will study be performed?: [facility] Radiology Reason for exam and clinical history: Study performed for attenuation correction of the stress test. Nuclear Pharmacologic Stress Cardiology (PET CT Mobile) [[id number] CPT(R)] 06/14/2021 10/14/2021 Process Instructions: Order [id number], NM myocardial perfussion scan, pharmacologic, should also be placed for the radiologyportion of the test. Scheduling Instructions: Cardiac perfusion (Stress and Lexiscan) - NPO after midnight, medication instructions per referringphysician. Avoidance of all caffeinated and decaffeinated products (No coffee, teas, chocolate, or cola drinks) for at least 12 hours prior to exam. Questions: Where will study be performed?: [facility] Clinics Does the patient have a device?: [...] Center 07/23/2021 8:20 AM Jaspreet Kinsey MD [facility] Cardio [facility] Your Inpatient Medical Team at [facility] Name(s) of your inpatient provider(s): Attending - Jose Rodrigues MD Fellow - Brody Bernard MD Resident - Sandy Serna MD [employer]ater [employer] Packer - Sha Vale MD Your Primary Care Provider: JOCY Franco [phone] For questions regarding this document or issues relating to this hospitalization on the Medical Service, please contact your inpatient physician through the [facility] Disease Intervention Specialist . Issues afterhours and on weekends will be handled by the Hospitalist staff on-call. For questions regarding this document or issues relating to this hospitalization on the Medical Service, please contact your inpatient physician through the [facility] Disease Intervention Specialist . Issues afterhours and on weekends will be handled by the Route Salesperson staff on-call. Signed: Sandy Serna Internal Medicine PGY-3 Cardiovascular Medicine S2 Team Pager [phone] documented in this encounter Discharge Instructions * [...] Center 07/23/2021 8:20 AM Jaspreet Kinsey MD [facility] Your Inpatient Medical Team at [facility] Name(s) of your inpatient provider(s): Attending - Jose Rodrigues MD Fellow - Brody Bernard MD Resident - Sandy Serna MD [employer] Packer - Sha Vale MD Your Primary Care Provider: JOCY Franco [phone] For questions regarding this document or issues relating to this hospitalization on the Medical Service, please contact your inpatient physician through the [facility] Disease Intervention Specialist . Issues afterhours and on weekends will [...] as needed. fluticasone propionate (FLONASE) 50 mcg/actuation [place], Suspension 1 spray by Each Nare route [...] FORWARD: possible cardiac cath pain management monitor monitoring tech I/O discharge planning as appropriate INDIVIDUALIZED FALL [...] JOHN PCP: JOCY Franco PCP phone #: [phone] ID/Chief Complaint: Indira Roque is a 51 y.o. with hx of HFpEF, MARYLOU, who is admitted from [facility] with associated chest pain last night History [...] depressions on EKG. Indira was transferred to [facility] for further evaluation. Of note, the patient was just released from [facility] for chest pain on Wednesday06/09/2021. During that [...] DAILY ??? fluticasone propionate (FLONASE) 50 mcg/actuation [place], Suspension 1 spray, Each Nare, DAILY ??? [...] ??? Clobetasol Rash Family History: Father from [place] s/p multiple coronary stents at Social History: [...] at coronary flow reserve Jose Rodrigues MD, [facility] Section of Cardiovascular Medicine [facility] Inventory And Pricing Associateinventory and pricing associate [employer] at [facility] documented in this encounter Plan of Treatment Upcoming Encounters Date Type Department Care Team (Late st Contact Info) Description 10/08/2023 8:30 AM EDT Tech Visit Vascular Lab at [place] [phone] Jose Cook 10/08/2023 9:30 AM EDT Office Visit [place] [phone] MD [facility] [place] [address] 10/21/2023 10:30 AM EDT Appointment Nuclear Medicine at [place] [phone] Mary Reyes [facility] [address] 10/21/2023 11:30 AM EDT Appointment [place] [phone] Mary Reyes [facility] [address] 10/21/2023 12:30 PM EDT Appointment [place] [phone] Mary Reyes [facility] [place] [address] 10/21/2023 1:30 PM EDT Appointment [place] [phone] Mary Reyes [facility] [place] [address] 10/21/2023 2:30 PM EDT Appointment [place] [phone] Mary Reyes APRN [facility] [place] [address] 10/26/2023 4:00 PM EDT Office Visit Cardiology at [address] [phone] Jaspreet Kinsey MD [facility] [place] [address] 10/28/2023 9:00 AM EDT Office [place] [address] 10/29/2023 10:00 AM EDT Clinical Support [place] [address] 10/29/2023 10:15 AM EDT Procedure [place] [address] 11/01/2023 5:00 PM EDT Office Visit Gastroenterology at [place] [phone] Selene Browning, PhD [facility] [place] [address] 11/22/2023 4:40 PM EDT Office Visit Cardiology at [place] [phone] Porsha Mcdaniels MD [facility] [place] [address] 12/13/2023 10:00 AM EDT Clinical Support [place] [phone] [facility] [place] [address] Scheduled Referrals Name Type Priority Associated Diagnoses [...] Chest pain, unspecified type RAPID COVID-19 PCR ([facility]/APD/[facility]) Routine 06/13/2021 1:09 PM EDT documented in this encounter Results * Magnesium (06/14/2021 5:13 AM EDT) Magnesium 0.90 0.69 - 1.07 mmol/L [facility] Blood Venous Draw / Unknown 06/14/2021 5:13 AM EDT 06/14/2021 5:25 AM EDT Narrative Resulting Agency Comment Spec In Lab Sandy Serna MD CHEMISTRY ORDER ARABELLA [facility] [place] [address] * (ABNORMAL) Troponin (06/14/2021 5:13 AM EDT) Troponin-T 0.04(H) 0.00 - 0.00 ng/mL [facility] Comment: The 99th percentile for Troponin T is less than 0.01 ng/mL, any detectable cTnT concentration using this assay should be considered elevated. According to the third universal definition of myocardial infarction the following criteria with a clinical presentation consistent with acute myocardial ischemia meets the diagnosis for a myocardial infarction ([place]). Detection of a rise and/or fall of cTnT, with at least one value greater than the 99th percentile (> or = 0.01) and with at least one of the following ?? Symptoms of ischemia ?? New or presumed new significant MA-yfptitc-P wave (ST-T) changes or new left bundle [...] additional sample may be indicated. Reference: Third Hamburg Definition of Myocardial Infarction. Journal of the [place] College of [employer]iology 2012;60:1581-98 Blood 06/14/2021 5:13 AM EDT 06/14/2021 5:19 AM EDT Narrative Resulting Agency Comment Spec In Lab Jose Rodrigues MD CHEMISTRY ORDERABLES Performing Organization Address City/State/[facility] Co de Phone Number [facility] [place] [address] * Heparin (unfractionated) Level (06/14/2021 5:13 AM EDT) Heparin UFH Level 0.66 IU/mL [facility] Comment: [...] Lab Jose Rodrigues MD HEMATOLOGY ORDERABLE S [facility] [place] [place] [address] * Differential, Automated (06/14/2021 5:13 AM EDT) Neutrophils % 62.5 % [facility] Neutr Abs (ANC) 4.36 1.70 - 6.10 x10(3)/[facility] Lymphocytes % 24.1 % [facility] Lymphocytes Abs 1.7 0.9 - 3.2 x10(3)/[facility] Monocytes % 9.2 % [facility] Monocyte Abs 0.6 0.3 - 0.9 x10(3)/[facility] Eosinophils % 2.9 % [facility] Eosinophils Abs 0.2 0.0 - 0.4 x10(3)/[facility] Basophils % 1.0 % [facility] Basophils Abs 0.1 0.0 - 0.1 x10(3)/[facility] Immature Gran % 0.30 % [facility] Comment: Immature granulocytes(IG's)percentage and absolute count will include metamyelocytes, myelocytes, and promyelocytes. Blood smears from CBCs yielding IG's will be scanned manually for concordance. If this scan disagrees with the automated IG or if promyelocytes are noted, a manual differential will be performed. Shonda Gran Abs 0.02 0.00 - 0.04 x10(3)/[facility] Blood 06/14/2021 5:13 AM EDT 06/14/2021 5:19 AM EDT Narrative Resulting Agency Comment Spec In Lab Sha Vale MD HEMATOLOGY ORDERABLE S [facility] [place] [address] * (ABNORMAL) Hemogram (06/14/2021 5:13 AM EDT) WBC 7.0 4.0 - 9.5 x10(3)/[facility] RBC 4.94 4.00 - 5.21 x10(6)/[facility] Hemoglobin 15.2 11.7 - 15.5 g/dL [facility] Hematocrit 46.5(H) 35.7 - 45.8 % [facility] MCV 94.1 82.6 - 94.4 [facility] MCH 30.8 27.1 - 32.0 pg [facility] MCHC 32.7 31.7 - 35.0 g/dL [facility] Platelets 252 145 - 357 x10(3)/[facility] RDWSD 48.5(H) 37.0 - 46.0 [facility] RDWCV 14.2(H) 11.5 - 14.1 % [facility] MPV 10.4 7.6 - 12.9 [facility] nRBC % Auto 0.0 % [facility] nRBC Abs Auto 0.000 0.000 - 0.000 x10(3)/[facility] Blood 06/14/2021 5:13 AM EDT 06/14/2021 5:19 AM EDT Narrative Resulting Agency Comment Spec In Lab Sha Vale MD HEMATOLOGY ORDERABLE S [facility] [place] [address] * (ABNORMAL) Basic Metabolic Panel (non-fasting) (06/14/2021 5:13 AM EDT) Glucose Lvl 98 65 - 199 mg/dL [facility] Comment:Diabetes: >=200 mg/d L plus symptoms BUN 21(H) 8 - 18 mg/dL [facility] Creatinine 0.80 0.70 - 1.20 mg/dL [facility] Estimated GFR 85 >=60 mL/min/1. 73 m?? [facility] Comment: This patient? [...] In Lab Jose Rodrigues MD CHEMISTRY ORDERABLES [facility] [place] [address] * (ABNORMAL) Troponin (06/13/2021 9:41 PM EDT) Troponin-T 0.04(H) 0.00 - 0.00 ng/mL [facility] Comment: The 99th percentile for Troponin T is less than 0.01 ng/mL, any detectable cTnT concentration using this assay should be considered elevated. According to the third universal definition of myocardial infarction the following criteria with a clinical presentation consistent with acute myocardial ischemia meets the diagnosis for a myocardial infarction ([place]). Detection of a rise and/or fall of cTnT, with at least one value greater than the 99th percentile (> or = 0.01) and with at least one of the following ?? Symptoms of ischemia ?? New or presumed new significant WU-ypqhymf-W wave (ST-T) changes or new left bundle [...] additional sample may be indicated. Reference: Third Hamburg Definition of Myocardial Infarction. Journal of the [place] College of [employer]iology 2012;60:1581-98 Blood 06/13/2021 9:41 PM EDT 06/13/2021 9:55 PM EDT Narrative Resulting Agency Comment Spec In Lab Jose Rodrigues MD CHEMISTRY ORDERABLES Performing Organization Address City/[facility]/ZIP Co de Phone Number [facility] [place] [address] * Heparin (unfractionated) Level (06/13/2021 9:41 PM EDT) Pathologist [facility] Heparin UFH Level 0.33 IU/mL [facility] [...] Lab Jose Rodrigues MD HEMATOLOGY ORDERABLE S [facility] [place] [address] * XR Chest PA & Lateral (Generic) [...] care nurse that requested 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 Electronically signed by: ZENAIDA TAVARES [facility] ([phone]),at 06/14/2021 8:08 AM Jose Rodrigues MD IMG DX ORDERABLES * (ABNORMAL) Troponin (06/13/2021 6:40 PM EDT) Troponin-T 0.04(H) 0.00 - 0.00 ng/mL [facility] Comment: The 99th percentile for Troponin T is less than 0.01 ng/mL, any detectable cTnT concentration using this assay should be considered elevated. According to the third universal definition of myocardial infarction the following criteria with a clinical presentation consistent with acute myocardial ischemia meets the diagnosis for a myocardial infarction ([place]). Detection of a rise and/or fall of cTnT, with at least one value greater than the 99th percentile (> or = 0.01) and with at least one of the following ?? Symptoms of ischemia ?? New or presumed new significant BH-titeptr-G wave (ST-T) changes or new left bundle [...] additional sample may be indicated. Reference: Third Hamburg Definition of Myocardial Infarction. Journal of the [place] College of [employer]iology 2012;60:1581-98 Blood 06/13/2021 6:40 PM EDT 06/13/2021 6:46 PM EDT Narrative Resulting Agency Comment Spec In Lab Jose Rodrigues MD CHEMISTRY ORDERABLES Performing Organization Address [facility]/ZIP Co de Phone Number [facility] [place] [address] * T4, free (06/13/2021 3:26 PM EDT) Free T4 1.08 0.93 - 1.70 ng/dL [facility] Comment: Reference Interval (ng/dL): Females: ??First Trimester: 0.97-1.68 ??Second Trimester: 0.77-1.51 ??Third Trimester: 0.77-1.49 Blood 06/13/2021 3:26 PM EDT 06/13/2021 3:52 PM EDT Narrative Resulting Agency Comment Spec In Lab Sha Vale MD CHEMISTRY ORDERABLES Performing Organization Address [facility]/ZIP Co de Phone Number [facility] [place] [address] * Heparin (unfractionated) Level (06/13/2021 3:26 PM EDT) Heparin UFH Level <0.04 IU/mL [facility] Comment: [...] Performing Organization Address City/[facility]/ZIP Co de Phone Number [facility] [place] [address] * Bilirubin, Direct (06/13/2021 3:26 PM EDT) Bili, Direct 0.1 0.0 - 0.3 mg/dL [facility] Blood Venous Draw / Unknown 06/13/2021 3:26 PM EDT 06/13/2021 3:39 PM EDT Narrative Resulting Agency Comment Spec In Lab Sha Vale MD CHEMISTRY ORDERABLES Performing Organization Address [facility]/ZIP Co de Phone Number [facility] [place] [address] * (ABNORMAL) Comprehensive metabolic panel (non-fasting) (06/13/2021 3:26 PM EDT) Glucose Lvl 77 65 - 199 mg/dL [facility] Comment:Diabetes: >=200 mg/d L plus symptoms BUN 20(H) 8 - 18 mg/dL [facility] Creatinine 0.88 0.70 - 1.20 mg/dL [facility] Sodium 137 135 - 145 mmol/L [facility] Potassium 4.4 3.5 - 5.0 mmol/L [facility] Comment: Please note: ??Patients with WBC >100,000 may have falsely elevated Potassium levels. ??For accurate Potassium quantification in these patients send serum separator tube (gold top) for subsequent determinations. ??Contact the Clinical Chemistry Laboratory if there are any questions. Chloride 102 98 - 107 mmol/L [facility] CO2 17(L) 22 - 31 mmol/L [facility] Anion Gap 18(H) 5 - 15 mmol/L [facility] Calcium 9.2 8.5 - 10.5 mg/dL [facility] Total Protein 7.4 6.1 - 8.0 g/dL [facility] Albumin 4.0 3.2 - 5.2 g/dL [facility] AST 44(H) 0 - 30 unit/L [facility] ALT 31(H) 0 - 30 unit/L [facility] Alk Phos 70 35 - 105 unit/L [facility] Total Bilirubin 0.4 0.2 - 1.3 mg/dL [facility] Estimated GFR 76 >=60 mL/min/1. 73 m?? [facility] Comment: This patient? [...] In Lab Sha Vale MD CHEMISTRY ORDERABLES [facility] [place] [address] * (ABNORMAL) pro-Brain Natriuretic Peptide (06/13/2021 3:26 PM EDT) ProBNP 2,479(H) <=124 pg/mL [facility] Blood Venous Draw / Unknown 06/13/2021 3:26 PM EDT 06/13/2021 3:39 PM EDT Narrative Resulting Agency Comment Spec In Lab Sha Vale MD CHEMISTRY ORDERABLES Performing Organization Address [facility]/ZIP Co de Phone Number [facility] [address] * Magnesium (06/13/2021 3:26 PM EDT) Magnesium 0.93 0.69 - 1.07 mmol/L [facility] Blood Venous Draw / Unknown 06/13/2021 3:26 PM EDT 06/13/2021 3:39 PM EDT Narrative Resulting Agency Comment Spec In Lab Sha Vale MD CHEMISTRY ORDERABLES Performing Organization Address [facility]/ZIP Co de Phone Number [facility] [address] * Phosphorus (06/13/2021 3:26 PM EDT) Phosphorus 3.6 2.5 - 4.5 mg/dL [facility] Blood Venous Draw / Unknown 06/13/2021 3:26 PM EDT 06/13/2021 3:39 PM EDT Narrative Resulting Agency Comment Spec In Lab Sha Vale MD CHEMISTRY ORDERABLES Performing Organization Address City/[facility]/ZIP Co de Phone Number [facility] [address] * APTT (06/13/2021 3:26 PM EDT) PTT 29 25 - 37 sec [facility] Comment: The PTT is NOT appropriate for heparin monitoring. Use the Anti-Xa level for heparin monitoring (HEP UFH) or LMWH monitoring (HEP LMW). A PTT less than 37 seconds generally indicates adequate hemostasis. Blood 06/13/2021 3:26 PM EDT 06/13/2021 3:36 PM EDT Narrative Resulting Agency Comment Spec In Lab Jose Rodrigues MD HEMATOLOGY ORDERABLE S Performing Organization Address [facility] de Phone Number [facility] [place] [address] * Prothrombin Time (06/13/2021 3:26 PM EDT) PT 12.4 9.4 - 12.5 sec [facility] INR 1.1 [facility] Comment: An INR <2.0 indicates [...] MD HEMATOLOGY ORDERABLE S Performing Organization Address [facility] Co de Phone Number [facility] [address] * (ABNORMAL) TSH [place] (06/13/2021 3:26 PM EDT) TSH 6.47(H) 0.27 - 4.20 mcIU/mL [facility] Comment: Reference Interval (mcIU/mL): Females: ??First Trimester: 0.23-3.88 ??Second Trimester: 0.22-3.90 ??Third Trimester: 0.44-4.66 Blood 06/13/2021 3:26 PM EDT 06/13/2021 3:37 PM EDT Narrative Resulting Agency Comment Spec In Lab Jose Rodrigues MD CHEMISTRY ORDERABLES [facility] [place] [address] * Differential, Automated (06/13/2021 3:26 PM EDT) Neutrophils % 64.4 % [facility] Neutr Abs (ANC) 4.05 1.70 - 6.10 x10(3)/[facility] Lymphocytes % 22.6 % [facility] Lymphocytes Abs 1.4 0.9 - 3.2 x10(3)/[facility] Monocytes % 10.0 % [facility] Monocyte Abs 0.6 0.3 - 0.9 x10(3)/[facility] Eosinophils % 1.8 % [facility] Eosinophils Abs 0.1 0.0 - 0.4 x10(3)/[facility] Basophils % 1.0 % [facility] Basophils Abs 0.1 0.0 - 0.1 x10(3)/[facility] Immature Gran % 0.20 % [facility] Comment: Immature granulocytes(IG's)percentage and absolute count will include metamyelocytes, myelocytes, and promyelocytes. Blood smears from CBCs yielding IG's will be scanned manually for concordance. If this scan disagrees with the automated IG or if promyelocytes are noted, a manual differential will be performed. Shonda Gran Abs 0.01 0.00 - 0.04 x10(3)/[facility] Blood 06/13/2021 3:26 PM EDT 06/13/2021 3:37 PM EDT Narrative Resulting Agency Comment Spec In Lab Sha Vale MD HEMATOLOGY ORDERABLE S [facility] [place], [place] [address] * (ABNORMAL) Hemogram (06/13/2021 3:26 PM EDT) Pathologist [facility] WBC 6.3 4.0 - 9.5 x10(3)/[facility] LABORATORY RBC 5.27(H) 4.00 - 5.21 x10(6)/[facility] LABORATORY Hemoglobin 16.1(H) 11.7 - 15.5 g/dL [facility] LABORATORY Hematocrit 49.7(H) 35.7 - 45.8 % [facility]ORY MCV 94.3 82.6 - 94.4 [facility] LABORATORY MCH 30.6 27.1 - 32.0 pg [facility]ORY MCHC 32.4 31.7 - 35.0 g/dL [facility] LABORATORY Platelets 237 145 - 357 x10(3)/[facility] LABORATORY RDWSD 49.1(H) 37.0 - 46.0 [facility] LABORATORY RDWCV 14.2(H) 11.5 - 14.1 % [facility] LABORATORY MPV 11.3 7.6 - 12.9 [facility] LABORATORY nRBC % Auto 0.0 % [facility] LABORATORY nRBC Abs Auto 0.000 0.000 - 0.000 x10(3)/[facility] LABORATORY Blood 06/13/2021 3:26 PM EDT 06/13/2021 3:37 PM EDT Narrative Resulting Agency Comment Spec In Lab Sha Vale MD HEMATOLOGY ORDERABLE S [facility] [place] [address] * (ABNORMAL) Troponin (06/13/2021 3:26 PM EDT) Pathologist [facility] Troponin-T 0.04(H) 0.00 - 0.00 ng/mL [facility] Comment: The 99th percentile for Troponin T is less than 0.01 ng/mL, any detectable cTnT concentration using this assay should be considered elevated. According to the third universal definition of myocardial infarction the following criteria with a clinical presentation consistent with acute myocardial ischemia meets the diagnosis for a myocardial infarction ([place]). Detection of a rise and/or fall of cTnT, with at least one value greater than the 99th percentile (> or = 0.01) and with at least one of the following ?? Symptoms of ischemia ?? New or presumed new significant HQ-bsvfeqz-X wave (ST-T) changes or new left bundle [...] additional sample may be indicated. Reference: Third [place] Definition of Myocardial Infarction. Journal of the [place] [employer] 2012;60:1581-98 Blood 06/13/2021 3:26 PM EDT 06/13/2021 3:37 PM EDT Narrative Resulting Agency Comment Spec In Lab Jose Rodrigues MD CHEMISTRY ORDERABLES [facility] [place] [address] * EKG 12 Lead (06/13/2021 2:18 PM EDT) Ventricular rate 48 BPM MUSE SYSTEM Atrial Rate 48 BPM MUSE SYSTEM P-R Interval 196 ms MUSE SYSTEM QRS Duration 84 ms MUSE SYSTEM Q-T Interval 498 ms MUSE SYSTEM QTC Calculated (Bezet) 444 ms MUSE SYSTEM Calculated P [place] 1 degrees MUSE SYSTEM Calculated R [place] 27 degrees MUSE SYSTEM Calculated T [place] -27 degrees MUSE SYSTEM INTERPRETATION Sinus bradycardia Nonspecific ST and T wave abnormality Abnormal ECG When compared with ECG of 07-JUN-2021 16:33, No significant change was found I personally reviewed the tracing and edited the fellows interpretation Confirmed by fellow Jaspreet Grimm ([id number]) on 06/16/2021 1:34:45 PM Confirmed by MD Angelo Danette ([id number]) on 06/16/2021 1:39:20 PM MUSE SYSTEM 06/13/2021 2:18 PM EDT 06/16/2021 1:39 PM EDT Jose Rodrigues MD ECG ORDERABLES MUSE SYSTEM * COVID-19 PCR (06/13/2021 1:09 PM EDT) SARS-CoV-2 RNA PCR Not Detected Not Detected [facility] Comment: This result [...] using the Simplexa COVID-19 Direct Assay by Beegit as authorized by the FDA issued Emergency [...] Department of Pathology and Laboratory Medicine at [facility], certified under the Clinical Laboratory Improvement Amendments [...] fact sheets at the following FDA website: https://www.fda.gov/medical-devices/thddrazrghc-bddxqte-1544-oxqee-11-rdlkrxpte- use-a grhllxnbufans-vkrtpso-umqefos/bmiya-nbcljklcepq-xsza SARS-CoV-2 Source RADIAL DRILL OPERATOR Swab MA [facility]OR[facility] Nasopharyngeal Swab 06/14/19 1:09 PM EDT 06/13/2021 1:45 PM EDT Comment:Symptoms->Surveillan ce Narrative Resulting Agency Comment Spec In Lab Jose Rodrigues MD MICROBIOLOGY - GENER AL ORDERABLES [facility] [place] [address] documented in this encounter Visit Diagnoses Diagnosis [...] Routine documented in this encounter Care Teams Renewals Specialist Relationship Specialty Start Date End Date Polo Pearce PA [address] [place] [address] PCP - General Internal Medicine 06/09/21 documented as of this encounter
--- OUTSIDE RECORDS SUMMARY | 2023-09-20 18:38 | XMS_ITS | Encounter Summary ---
Author Organization [facility] [place] [address] Care Team Providers Care Mannequin Decorator Name Role Phone Polo Pearce Primary Care Provider [phone] Encounter Details Date Type Department Care Team (Late st Contact Info) Description 03/10/2022 External [place] [address] Social History Tobacco Use Types Packs/Day Years [...] AM EDT Tech Visit [place] [address] Jose Cook 10/08/2023 9:30 AM EDT Office [place] [phone] MD [facility] [place] [address] 10/21/2023 10:30 AM EDT Appointment Nuclear [place] [address] Mary Reyes [facility] [place] [address] 10/21/2023 11:30 AM EDT Appointment Nuclear Medicine at [address] Mary Reyes [facility] [place] [address] 10/21/2023 12:30 PM EDT Appointment Nuclear Medicine at [address] Mary Reyes [facility] [place] [address] 10/21/2023 1:30 PM EDT Appointment [place] [address] Mary Reyes [facility] [place] [address] 10/21/2023 2:30 PM EDT Appointment [place] [address] Mary Reyes [facility] [place] [address] 10/26/2023 4:00 PM EDT Office Visit Cardiology at [address] [phone] Jaspreet Kinsey MD [facility] [place] [address] 10/28/2023 9:00 AM EDT Office [place] [address] 10/29/2023 10:00 AM EDT Clinical Support [place] [address] 10/29/2023 10:15 AM EDT Procedure visit [place] [address] 11/01/2023 5:00 PM EDT Office Visit Gastroenterology at [place] [phone] Selene Browning, PhD [facility] [place] [address] 11/22/2023 4:40 PM EDT Office Visit Cardiology at [address] [phone] Porsha Mcdaniels MD [facility] [place] [address] 12/13/2023 10:00 AM EDT Clinical Support Gastroenterology at [place] [phone] Lucero Romero, RD [facility] [place] [address] documented as of this encounter Procedures Procedure Name Priority Date/Time Associated Diagnosis Comments ECG SCAN Routine 03/10/2022 documented in this encounter Results * Scan Doc: ECG (03/10/2022) Historical Provider MEDIA MGR SCAN EX T ORDR/RSLT documented in this encounter Visit Diagnoses Not on filedocumented in this encounter Care Teams Mannequin Decorator Relationship Specialty Start Date End Date Polo Pearce PA [address] [place] [address] PCP - General Internal Medicine 4/4/22 documented as of this encounter
--- OUTSIDE RECORDS SUMMARY | 2023-09-20 18:38 | XMS_ITS | Encounter Summary ---
Author Organization [facility] Address [facility] [place] [address] Care Team Providers Care Welfare Specialist Name Role Phone Polo Pearce Primary Care Provider [phone] Encounter Details Date Type Department Care Team (Late st Contact Info) Description 09/17/2021 Telephone Cardiology at [address] [place] [address] Jaspreet Kinsey MD [facility] [place] [address] Social History Tobacco Use Types Packs/Day Years [...] Please call on her work phone @ [phone]. Or you may leave a message on her cell phone @ [phone] documented in this encounter Plan of Treatment Upcoming Encounters Date Type Department Care Team (Late st Contact Info) Description 10/08/2023 8:30 AM EDT Tech [place] [address] Jose Cook 10/08/2023 9:30 AM EDT Office Visit Vascular Surgery at [address] MD [facility] [place] [address] 10/21/2023 10:30 AM EDT Appointment Nuclear Medicine at [address] [facility] [place] [address] 10/21/2023 11:30 AM EDT Appointment Nuclear Medicine at [address] [facility] [place] [address] 10/21/2023 12:30 PM EDT Appointment Nuclear Medicine at [address] [facility] [place] [address] 10/21/2023 1:30 PM EDT Appointment Nuclear Medicine at [place] [phone] [facility] [place] [address] 10/21/2023 2:30 PM EDT Appointment Nuclear Medicine at [place] [phone] [facility] [place] [address] 10/26/2023 4:00 PM EDT Office Visit Cardiology at [address] [place] [address] Jaspreet Kinsey MD [facility] [place] [address] 10/28/2023 9:00 AM EDT Office Visit [place] [address] 10/29/2023 10:00 AM EDT Clinical Support [place] [address] 10/29/2023 10:15 AM EDT Procedure visit Gastro[place] [address] 11/01/2023 5:00 PM EDT Office Visit Gastroenterology at [place] [phone] Selene Browning, PhD [facility] [place] [address] 11/22/2023 4:40 PM EDT Office Visit Cardiology at [address] [phone] Porsha Mcdaniels MD [facility] [place] [address] 12/13/2023 10:00 AM EDT Clinical Support [place] [phone] [facility] [place] [address] documented as of this encounter Visit Diagnoses Not on filedocumented in this encounter Care Teams Welfare Specialist Relationship Specialty Start Date End [place] [address] PCP - General Internal Medicine 06/09/21 documented as of this encounter
--- OUTSIDE RECORDS SUMMARY | 2023-09-20 18:38 | XMS_ITS | Encounter Summary ---
Author Organization [facility] Address [facility] [place] [address] Care Team Providers Care Carbon Paper Machine Operator Name Role Phone Polo Pearce Primary Care Provider [phone] Encounter Details Date Type Department Care Team (Late st Contact Info) Description 03/17/2022 Telephone Cardiology at [address] [place] [address] Jaspreet Kinsey MD [facility] [place] [address] Social History Tobacco Use Types Packs/Day Years [...] the new one. Please call her @ [phone]. documented in this encounter Plan of Treatment Upcoming Encounters Date Type Department Care Team (Late st Contact Info) Description 10/08/2023 8:30 AM EDT Tech [place] [address] Jose Cook 10/08/2023 9:30 AM EDT Office [place] [phone] MD [facility] [place] [address] 10/21/2023 10:30 AM EDT Appointment [place] [phone] Mary Reyes [facility] [place] [address] 10/21/2023 11:30 AM EDT Appointment [place] [phone] Mary Reyes [facility] [place] [address] 10/21/2023 12:30 PM EDT Appointment [place] [address]-1000 Mary Reyes [facility] [place] [address] 10/21/2023 1:30 PM EDT Appointment [place] [address] Mary Reyes [employer] [facility] [place] [address] 10/21/2023 2:30 PM EDT Appointment [place] [address] Mary Reyes APRN [facility] [place] [address] 10/26/2023 4:00 PM EDT Office Visit Cardiology at [address] [phone] Jaspreet Kinsey MD [facility] [place] [address] 10/28/2023 9:00 AM EDT Office [place] [address] 10/29/2023 10:00 AM EDT Clinical [place] [address] 10/29/2023 10:15 AM EDT Procedure [place] [address] 11/01/2023 5:00 PM EDT Office [place] [address] Selene Browning, PhD [facility] [place] [address] 11/22/2023 4:40 PM EDT Office Visit Cardiology at [address] [phone] Porsha Mcdaniels MD [facility] [place] [address] 12/13/2023 10:00 AM EDT Clinical [place] [address] Lucero Romero, RD [facility] [place] [address] documented as of this encounter Visit Diagnoses Not on filedocumented in this encounter Care Teams Carbon Paper Machine Operator Relationship Specialty Start Date End Date Polo Pearce PA [address] [place] [address] PCP - General Internal Medicine 06/09/21 documented as of this encounter
--- OUTSIDE RECORDS SUMMARY | 2023-09-20 18:38 | XMS_ITS | Encounter Summary ---
Author Organization [facility] [place] [address] Care Team Providers Care Access Consultant Name Role Phone Polo Pearce Primary Care Provider [phone] Encounter Details Date Type Department Care Team (Late st Contact Info) Description 12/30/2021 External Results [place] [address] Social History Tobacco Use Types Packs/Day Years [...] AM EDT Tech [place] [phone] Jose Cook 10/08/2023 9:30 AM EDT Office [place] [phone] MD [facility] [place] [address] 10/21/2023 10:30 AM EDT Appointment [place] [address] Mary Reyes [facility] [place] [address] 10/21/2023 11:30 AM EDT Appointment Nuclear Medicine at [place] [phone] Mary Reyes [facility] [place] [address] 10/21/2023 12:30 PM EDT Appointment Nuclear Medicine at [address]1000 Mary Reyes [facility] [place] [address] 10/21/2023 1:30 PM EDT Appointment [place] [address] Mary Reyes [facility] [place] [address] 10/21/2023 2:30 PM EDT Appointment [place] [address] Mary Reyes [facility] [place] [address] 10/26/2023 4:00 PM EDT Office Visit Cardiology at [address] [phone] Jaspreet Kinsey MD [facility] [place] [address] 10/28/2023 9:00 AM EDT Office Visit [place] [address] 10/29/2023 10:00 AM EDT Clinical Support [place] [address] 10/29/2023 10:15 AM EDT Procedure visit Gastro[place] [address] 11/01/2023 5:00 PM EDT Office Visit Gastroenterology at [place] [phone] Selene Browning, PhD [facility] [place] [address] 11/22/2023 4:40 PM EDT Office Visit Cardiology at [place] [phone] Porsha Mcdaniels MD [facility] [place] [address] 12/13/2023 10:00 AM EDT Clinical Support Gastroenterology at [place] [phone] Lucero Romero, RD [facility] [place] [address] documented as of this encounter Procedures Procedure Name Priority Date/Time Associated Diagnosis Comments ECG SCAN Routine 12/30/2021 documented in this encounter Results * Scan Doc: ECG (12/30/2021) Historical Provider MD FLEMING MGR SCAN EX T ORDR/RSLT documented in this encounter Visit Diagnoses Not on filedocumented in this encounter Care Teams Access Consultant Relationship Specialty Start Date End Date Polo Pearce PA [address] [place] [address] PCP - General Internal Medicine 06/09/21 documented as of this encounter
--- OUTSIDE RECORDS SUMMARY | 2023-09-20 18:38 | XMS_ITS | Encounter Summary ---
Author Organization [facility] Address [facility] [place] [address] Care Team Providers Care Molybdenum Steamer Operator Name Role Phone Polo Pearce Primary Care Provider [phone] Reason for Visit * Reason Comments Congestive Heart Failure HFpEF Palpitations SVT/AVNRT * Consultation (Routine) - Closed Specialty Diagnoses / Procedures Referred By Contac t Referred To Contact Cardiology Diagnoses HFp EF Procedures NEW PATIENT Mario Hallman MD [facility] [place] [address] Jaspreet Kinsey MD [facility] [place] [address] Referral ID Status Reason Start Date Expiration Date Visits Re quested Visits Authorized [id number] Closed 07/23/2021 07/23/2022 1 1 Encounter Details Date Type Department Care Team (Late st Contact Info) Description 07/23/2021 8:20 AM EDT Office Visit Cardiology at [address] [phone] Jaspreet Kinsey MD [facility] [place] [address] Heart failure with preserved ejection fraction, unspecified [...] preserved ejection fraction 05/2021: subacute, presented to [facility] with RUQ pain, weight gain, and [...] needed. ??? fluticasone propionate (FLONASE) 50 mcg/actuation [place], Suspension 1 spray by Each Nare route [...] for hfpef and svt She presented to [facility] end of May with subacute RUQ pain [...] AM EDT Tech [place] [address]-1000 Jose Cook 10/08/2023 9:30 AM EDT Office [place] [address]-[address] MD [facility] [place] [address] 10/21/2023 10:30 AM EDT Appointment [place] [address]-1000 Mary Reyes [facility] [address] 10/21/2023 11:30 AM EDT Appointment [place] [phone] Mary Reyes [facility] [place] [address] 10/21/2023 12:30 PM EDT Appointment [place] [address] Mary Reyes, [facility] [place] [address] 10/21/2023 1:30 PM EDT Appointment [place] [address] Mary Reyes, [facility] [place] [address] 10/21/2023 2:30 PM EDT Appointment [place] [address] Mary Reyes, [facility] [place] [address] 10/26/2023 4:00 PM EDT Office Visit Cardiology at [address] [phone] Jaspreet Kinsey MD [facility] [place] [address] 10/28/2023 9:00 AM EDT Office [place] [address] 10/29/2023 10:00 AM EDT Clinical [place] [address] 10/29/2023 10:15 AM EDT Procedure [place] [address] 11/01/2023 5:00 PM EDT Office [place] [address] Selene Browning, PhD [facility] [place] [address] 11/22/2023 4:40 PM EDT Office Visit Cardiology at [address] [phone] Porsha Mcdaniels MD [facility] [place] [address] 12/13/2023 10:00 AM EDT Clinical [place] [address]-[address] [facility] [place] [address] documented as of this encounter Visit Diagnoses Diagnosis Heart failure with preserved ejection fraction, unspecified HF chronicity SVT (supraventricular tachycardia) Other specified cardiac dysrhythmias documented in this encounter Care Teams Molybdenum Steamer Operator Relationship Specialty Start Date End Date Polo Pearce PA [address] [place] [address] PCP - General Internal Medicine 06/09/21 documented as of this encounter
--- OUTSIDE RECORDS SUMMARY | 2023-09-20 18:39 | XMS_ITS | Encounter Summary ---
[place] [address] Care Team Providers Care Coal Passer Name Role Phone Polo Pearce Primary Care Provider [phone] Encounter Details Date Type Department Care Team (Late st Contact Info) Description 06/10/2021 Telephone Cardiology at [address] [phone] Lashonda Menjivar, RN Social History Tobacco Use [...] prescription for 90 days of Jardiance, to [facility]. Prescription pended. Lashonda Menjivar RN (Jodie), BSN [facility] documented in this encounter Plan of Treatment Upcoming Encounters Date Type Department Care Team (Late st Contact Info) Description 10/08/2023 8:30 AM EDT Tech Visit Vascular Lab at [place] [phone] Jose Cook 10/08/2023 9:30 AM EDT Office Visit Vascular Surgery at [address] MD [facility] [place] [address] 10/21/2023 10:30 AM EDT Appointment Nuclear Medicine at [place] [address] Mary Reyes [facility] [address] 10/21/2023 11:30 AM EDT Appointment Nuclear Medicine at [place] [address] Mary Reyes [facility] [address] 10/21/2023 12:30 PM EDT Appointment Nuclear Medicine at [place] [phone] Mary Reyes [facility] [place] [address] 10/21/2023 1:30 PM EDT Appointment [place] [address] Mary Reyes [facility] [place] [address] 10/21/2023 2:30 PM EDT Appointment [place] [address] Mary Reyes [facility] [place] [address] 10/26/2023 4:00 PM EDT Office Visit Cardiology at [address] [address] Jaspreet Kinsey MD [facility] [place] [address] 10/28/2023 9:00 AM EDT Office [place] [address] 10/29/2023 10:00 AM EDT Clinical Support [place] [address] 10/29/2023 10:15 AM EDT Procedure [place] [address] 11/01/2023 5:00 PM EDT Office [place] [address] Selene Browning, PhD [facility] [place] [address] 11/22/2023 4:40 PM EDT Office Visit Cardiology at [address] [phone] Porsha Mcdaniels MD [facility] [place] [address] 12/13/2023 10:00 AM EDT Clinical Support [place] [address] Lucero Romero, RD [facility] [place] [address] documented as of this encounter Visit Diagnoses Not on filedocumented in this encounter Care Teams Coal Passer Relationship Specialty Start Date End Date Polo Pearce PA [address] [place] [address] PCP - General Internal Medicine 06/09/21 documented as of this encounter
--- OUTSIDE RECORDS SUMMARY | 2023-09-20 18:39 | XMS_ITS | Encounter Summary ---
Author Organization [facility] [place] [address] Care Team Providers Care Credit Collections Rep Name Role Phone Polo Pearce Primary Care Provider [phone] Encounter Details Date Type Department Care Team (Late st Contact Info) Description 06/11/2021 Telephone Cardiology at [address] [phone] Deja Zaidi PA [facility] [address] [place] [address] Social History Tobacco Use Types Packs/Day Years [...] JOCY Hernandez 06/11/2021 JOCY Hernandez 06/11/2021 Pager [phone] documented in this encounter Plan of Treatment Upcoming Encounters Date Type Department Care Team (Late st Contact Info) Description 10/08/2023 8:30 AM EDT Tech [place] [phone] Jose Cook 10/08/2023 9:30 AM EDT Office [place] [phone] MD [facility] [place] [address] 10/21/2023 10:30 AM EDT Appointment Nuclear Medicine at [place] [phone] [facility] [place] [address] 10/21/2023 11:30 AM EDT Appointment [place] [phone] [facility] [place] [address] 10/21/2023 12:30 PM EDT Appointment [place] [phone] [facility] [place] [address] 10/21/2023 1:30 PM EDT Appointment [place] [phone] [facility] [place] [address] 10/21/2023 2:30 PM EDT Appointment [place] [phone] Mary Reyes APRN [facility] [place] [address] 10/26/2023 4:00 PM EDT Office Visit Cardiology at [address] [phone] Jaspreet Kinsey MD [facility] [place] [address] 10/28/2023 9:00 AM EDT Office [place] [address] 10/29/2023 10:00 AM EDT Clinical Support [place] [address] 10/29/2023 10:15 AM EDT Procedure [place] [address] 11/01/2023 5:00 PM EDT Office Visit Gastroenterology at [place] [phone] Selene Browning, [facility] [place] [address] 11/22/2023 4:40 PM EDT Office Visit Cardiology at [address] [address] Porsha Mcdaniels MD [facility] [place] [address] 12/13/2023 10:00 AM EDT Clinical [place] [address] [facility] [place] [address] documented as of this encounter Visit Diagnoses Not on filedocumented in this encounter Care Teams Credit Collections Rep Relationship Specialty Start Date End Date Polo Pearce PA [address] [place] [address] PCP - General Internal Medicine 06/09/21 documented as of this encounter
--- OUTSIDE RECORDS SUMMARY | 2023-09-20 18:39 | XMS_ITS | Encounter Summary ---
Author Organization [facility] [place] [address] Care Team Providers Care Food Packer Name Role Phone Polo Pearce Primary Care Provider [phone] Reason for Visit * Reason Onset Date Comments Medication Refill 06/10/2021 Jardiance Encounter Details Date Type Department Care Team (Late st Contact Info) Description 06/10/2021 Refill Cardiology at [address] [phone] Deja Zaidi PA [facility] [place] [address] Medication Refill (Jardiance) Social History Tobacco Use [...] AM EDT Tech [place] [address] Jose Cook 10/08/2023 9:30 AM EDT Office [place] [address] MD [facility] [place] [address] 10/21/2023 10:30 AM EDT Appointment Nuclear Medicine at [place] [phone] Mary Reyes, [facility] [place] [address] 10/21/2023 11:30 AM EDT Appointment Nuclear Medicine at [address] Mary Reyes [facility] [place] [address] 10/21/2023 12:30 PM EDT Appointment [place] [address] Mary Reyes [facility] [address] 10/21/2023 1:30 PM EDT Appointment [place] [address] Mary Reyes [facility] [place] [address] 10/21/2023 2:30 PM EDT Appointment [place] [address] Mary Reyes [facility] [address] 10/26/2023 4:00 PM EDT Office Visit Cardiology at [address] [place] [address] Jaspreet Kinsey MD [facility] [place] [address] 10/28/2023 9:00 AM EDT Office Visit [place]astro[place] [address] 10/29/2023 10:00 AM EDT Clinical [place] [address] 10/29/2023 10:15 AM EDT Procedure [place] [address] 11/01/2023 5:00 PM EDT Office Visit Gastroenterology at [place] [phone] Selene Browning, PhD [facility] [place] [address] 11/22/2023 4:40 PM EDT Office Visit Cardiology at [place] [phone] Porsha Mcdaniels MD [facility] [place] [address] 12/13/2023 10:00 AM EDT Clinical Support Gastroenterology at [place] [phone] [facility] [place] [place] [address] documented as of this encounter Visit Diagnoses Diagnosis Chronic heart failure with preserved ejection fraction documented in this encounter Care Teams Food Packer Relationship Specialty Start Date End Date Polo Pearce PA Sb M[address] [place] [address] PCP - General Internal Medicine 06/09/21 documented as of this encounter
--- OUTSIDE RECORDS SUMMARY | 2023-09-20 18:39 | XMS_ITS | Encounter Summary ---
[place] [address] Care Team Providers Care Entry Level Electrician Name Role Phone Tim Rogers DNP Primary Care Provider [phone] Encounter Details Date Type Department Care Team (Late st Contact Info) Description 05/30/2021 Telephone [place] [phone] Beryl Grider Social History Tobacco Use Types [...] Beryl Grider - 05/30/2021 11:10 AM EDTSummary: [facility] Per Dr. Miller via [place], needs images sent to our PACS system for mutual pt. Called PCP's (Polo Pearce) office at [facility] & Nayeli Martin in Radiology to Assist in sending images of chest x- ray from May 03 & CT scan of abdomen ( maybe chest) from May 27 to our PACS system with Pulm # [phone] opt 1 documented in this encounter Plan of Treatment Upcoming Encounters Date Type Department Care Team (Late st Contact Info) Description 10/08/2023 8:30 AM EDT Tech Visit Vascular Lab at [place] [phone] Jose Cook 10/08/2023 9:30 AM EDT Office Visit [place] [address] [facility] [place] [address] 10/21/2023 10:30 AM EDT Appointment Nuclear Medicine at [place] [phone] Mary Reyes [facility] [place] [address] 10/21/2023 11:30 AM EDT Appointment Nuclear Medicine at [place] [phone] Mary Reyes [facility] [place] [address] 10/21/2023 12:30 PM EDT Appointment [place] [phone] Mary Reyes [facility] [place] [address] 10/21/2023 1:30 PM EDT Appointment [place] [phone] Mary Reyes [facility] [place] [address] 10/21/2023 2:30 PM EDT Appointment [place] [phone] Mary Reyes [address]N [facility] [place] [address] 10/26/2023 4:00 PM EDT Office Visit Cardiology at [address] [address] Jaspreet Kinsey MD [facility] [place] [address] 10/28/2023 9:00 AM EDT Office [place] [address] 10/29/2023 10:00 AM EDT Clinical [place] [address] 10/29/2023 10:15 AM EDT Procedure [place] [address] 11/01/2023 5:00 PM EDT Office Visit Gastroenterology at [place] [phone] Selene Browning, PhD [facility] [place] [address] 11/22/2023 4:40 PM EDT Office Visit Cardiology at [address] [address] Porsha Mcdaniels MD [facility] [place] [address] 12/13/2023 10:00 AM EDT Clinical Support [place] [phone] [facility] DR [facility]ONNE [facility] [place] [address] documented as of this encounter Visit Diagnoses Not on filedocumented in this encounter Care Teams Entry Level Electrician Relationship Specialty Start Date End Date Tim Rogers DNP PCP - General Family Medicine 08/28/19 06/08/21 documented as of this encounter
--- OUTSIDE RECORDS SUMMARY | 2023-09-20 18:39 | XMS_ITS | Encounter Summary ---
Author Organization [facility] [place] [address] Care Team Providers Care Piano Professor Name Role Phone Polo Pearce Primary Care Provider [phone] Reason for Referral * Diagnostic Test (Routine) - Closed Specialty Diagnoses / Procedures Referred By Jayant harris Referred To Contact Cardiology Diagnoses Elevated blood pressure reading without diagnosis of hypertension Procedures Ziopatch 48 Hrs-15 Days Deja Zaidi PA [facility] [place] [address] [facility] [place] [address] Referral ID Status Reason Start Date Expiration Date V isits Requested Visits Authorized [id number] Closed Specialty Service Requested 06/09/2021 12/09/2021 1 1 Reason for Visit * Auth/Cert Specialty Diagnoses / Procedures Referred By Jayant harris Referred To Contact Diagnoses NSTEMI (non-ST elevated myocardial infarction) NSTEMI Procedures EMERGENCY OBSVO Referral ID Status Reason Start Date Expiration Date Visits Re quested Visits Authorized [id number] 1 1 Encounter Details Date Type Department Care Team (Latest Contact Info) Description 06/07/2021 3:49 PM EDT - 06/09/2021 3:25 PM EDT Hospital Encounter Intermediate [place] [address] Mario Hallman MD [facility] [place] [address] NSTEMI (non-ST elevated myocardial infarction); Elevated blood [...] Loida Roque Patient Age: 51 y.o. Language: Citizen Of [place] Race: White Ethnicity: Not nor Admit date: [...] in a week and prn ?? Consider [place] as an out patient Inpatient Provider Contact Information: Dr. Mario Zaidi PA-C [phone] Discharge Diagnoses (Hospital Problems) and Secondary Diagnoses [...] change from prior in 08/2019. ?? Procedure Complete-76506. Image enhancement Definity was used for left [...] questions please contact the health career development director that requested 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 CXR 06/08/2021 [...] hysterectomy, Insomnia, and migraine who presents to [facility] with RUQ pain that radiated to her [...] 15. ?? Hospital Course: On admission to [facility], the patient had no complaints of chest pain or shortness of breath at rest.Telemetry was attached which showed normal sinus rhythm. Heparin drip was infusing. [facility] records/transfer records were reviewed. Baseline labs were checked and/or drawn. Chest Pain, MA ruled out, Echo showed preserved LVEF Given the patient's risk factors, chronic non-specific ST-T changes on ECG, and here at [facility] normaltroponin as well as reproducible chest tenderness [...] significant weight, however during her stay at [facility] now she lost only 0.9 kg, to [...] needed Follow up Appointments: PCP Tim Rogers, FORECLOSURE FIELD INSPECTOR [phone] to see you in a week (patient to set this up) Mel placed on 06/09/2021 Cardiology to see in a month and prn. Dr. Kinsey to see the patient in [place] on July 23 at 920 am. Please call [phone] with questions. Home oxygen therapy: N/A Arrangements for VNA/home care: none Future Appointments and Orders Future Appointments and Orders Future Appointments Provider Department Dept Phone 07/23/2021 8:20 AM Jaspreet Kinsey MD Cardiology at [place] Arrive at: [facility] [address] [phone] Future Orders Complete By Expires Mel 48 Hrs-15 Days [[id number] CPT(R)] 06/09/2021 12/09/2021 Process Instructions: Scheduling Instructions: Questions: Does the patient have a pacemaker? If yes provide HI/LO settings: Apply for 7 or 14 days?: 14 Where will study be performed?: [facility] Clinics Basic Metabolic Panel (non-fasting) [LAB15 Custom] 06/16/2021 (Approximate) 06/09/2022 Process Instructions: INCLUDES: Calcium, BUN, Creat, GFR, Glucose, Lytes Scheduling Instructions: Comments: Questions: Discharge References/Attachments None documented in this encounter Discharge Instructions * Discharge Instructions* Deja Zaidi PA - 06/08/2021 1:56 PM EDT Return to work: One week Driving: as needed Follow up Appointments: PCP Tim Rogers, FORECLOSURE FIELD INSPECTOR [phone] to see you in a week (patient to set this up) Mel placed on 06/09/2021 Cardiology to see in a month and prn. Dr. Kinsey to see the patient in [place] on July 23 at 920 am. Please call [phone] with questions. Home oxygen therapy: N/A Arrangements for VNA/home care: none documented in this encounter Medications at Time of Discharge Medication Sig Dispensed Refills Start Date End Date rOPINIRole (Requip) 1 mg Tablet Take 2 mg by mouth 2 times daily. 07/16/2020 loratadine (Claritin) 10 mg Tablet Take 10 mg by mouth daily as needed. fluticasone propionate (FLONASE) 50 mcg/actuation [place], Suspension 1 spray by Each Nare route [...] Nutrition Plan: Pt seen for Na2gm diet. Telecommunications Repairer informed pt of current diet orders and their restrictions. Pt expressed understanding and informed this resume writer that she tries to limit salt use at home. Telecommunications Repairer and pt discussed common sources of sodium (pre-prepared foods) and alternatives (fresh/frozen veggies). Provided educational material and encouraged pt to reach out with any questions or concerns. Will continue to monitor and follow up. Continue current diet. Monitor weight. Encourage good oral intake. Support and encouragement provided. Discussed case with Clinical Dietitian Active Orders Diet Daily Healthy Menu Choices/Cardiac diet ([facility]-Diet) 2 GM NA Frequency: Effective Now Number [...] nausea and no vomiting Last Bowel Movement: (COMMUNITY HEALTH CONSULTANT) Patient education / questions: provided diet order education and patient with good understanding, written education and contact information provided and all nutrition related questions answered at this time Nutrition services to follow weekly through hospital course unless consulted in the interim. Rocio Rosenthal Pager: [phone] * Deja Zaidi PA - 06/09/2021 9:14 AM EDT Inpatient Cardiology Discharge Day Note Patient Name: Loida Roque Service: LUNCHROOM ATTENDANT / PA Responsible Attending: Mario Hallman MD [...] (from the past 24 hour(s)) urine, qualitative ([facility]/CGP/NL) Result Value Ref Range Spec Morning View UA 1.010 1.006 - 1.030 HCG Qual [...] seen on recent CT scan presents to [facility] from [facility] with a NSTEMI. She has an elevated [...] with Dr. Hallman. ?? JOCY Hernandez Pager [phone] JOCY MCKOY 06/09/2021 Associated attestation - Mario Hallman MD - 06/09/2021 9:37 PM EDT Cardiology Attending Addendum I shared this visit with JOCY Zaidi and guided the medical decision- making. I explained to patient the findings of echo, R heart catheterization and our diagnostic impression and medications (furosemide and empagliflozin) and possible adverse events. More than 30 minutes were spent in [id number] contact with patient and with arranging discharge [...] Jaspreet Pardo - 06/08/2021 8:34 PM EDT Pharmacy General Manager Encounter Note Patient Name: Loida Roque : [id number] MR#: [id number] Admit Date: 06/07/2021 3:49 PM Hospital Day 0 days Narrative: Initial rounding visit to introduce hog ribber services and to assess patient interest. Patient [...] Day Note Patient Name: Loida Roque Service: LUNCHROOM ATTENDANT / PA Responsible Attending: Mario Hallman MD [...] PCR Not Detected Not Detected SARS-CoV-2 Source LUNCHROOM ATTENDANT Swab Troponin Result Value Ref Range Troponin-T [...] seen on recent CT scan presents to [facility] from [facility] with a NSTEMI. She has an elevated [...] with Dr. Hallman. ?? 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 ??? fluticasone propionate (FLONASE) 50 mcg/actuation [place], Suspension 1 spray by Each Nare route [...] seen on recent CT scan presents to [facility] from [facility] with a NSTEMI. She has an elevated trop, BNP and lateral EKG changes. Patient is now awaiting an Echo and cardiac cath. Neurology consult called in to determine if she needs imaging prior to her Echo and cath given garbled speech a week ago. Stable at this time. TREATMENT PLAN: NSTEMI Admit to [facility] for telemetry monitoring Serial enzymes and [...] JOCY Hernandez 06/07/2021 Provider: JOCY MCKOY Pager [phone] 06/07/2021 Associated attestation - Mario Hallman MD [...] COVID test: Lab Results Component Value Date [id number] Not Detected 06/07/2021 Present on Admission: ??? [...] care provider on file: Tim Rogers APRN [phone] Pharmacy: [facility] - [place], [place] - [address] [facility] [address] [facility] [address] Advance Care Planning: Attempt Cardiopulmonary Resuscitation - Inpatient <no information> -Advanced Directive: No, declines (Boby (spouse) SDM) Current Functional Ability: Independent Functional Status Prior to Admission: Independent Home Environment: Others in the home: spouse. Current Living Arrangements: home/apartment/condo. Accessibility Concerns: . Current DME: none [address] [facility] [address] Social & Family Supports: All names listed [...] private vehicle when medically ready. Registered Nurse Instructional Technology Facilitator / Farm Operations Manager will continue to follow patient???s progress and [...] Daily. ??? 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 Consider BRASS INSTRUMENT REPAIR TECHNICIAN consult for full evaluation and diet recommendations. [...] NPO at midnight for cath 06/08 ECHO [facility] due at 2200 INDIVIDUALIZED FALL PREVENTION INTERVENTIONS: [...] for further details. JOCY MCKOY 06/07/2021 Pager [phone] documented in this encounter Plan of Treatment Upcoming Encounters Date Type Department Care Team (Late st Contact Info) Description 10/08/2023 8:30 AM EDT Tech [place] [phone] Jose Cook 10/08/2023 9:30 AM EDT Office [place] [phone] MD [facility] [place] [address] 10/21/2023 10:30 AM EDT Appointment [place] [phone] Mary Reyes, ROM [facility] GASTROENTEROLOGY [place], [place] [phone] 10/21/2023 11:30 AM EDT Appointment [place] [address] Mary Reyes [facility] [place] [address] 10/21/2023 12:30 PM EDT Appointment [place] [address] Mary Reyes [facility] [place] [address] 10/21/2023 1:30 PM EDT Appointment [place] [address] Mary Reyes [facility] [place] [address] 10/21/2023 2:30 PM EDT Appointment [place] [address] Mary Reyes [facility] [place] [address] 10/26/2023 4:00 PM EDT Office Visit Cardiology at [address] [phone] Jaspreet Kinsey MD [facility] [place] [address] 10/28/2023 9:00 AM EDT Office [place] [address] 10/29/2023 10:00 AM EDT Clinical Support [place] [address] 10/29/2023 10:15 AM EDT Procedure [place] [address] 11/01/2023 5:00 PM EDT Office [place] [address] Selene Browning, PhD [facility] [place] [address] 11/22/2023 4:40 PM EDT Office Visit Cardiology at [address] [phone] Porsha Mcdaniels MD [facility] [place] [address] 12/13/2023 10:00 AM EDT Clinical Support [place] [address] Lucero Romero, [place] [facility] [place] [address] documented as of this encounter Procedures Procedure [...] Modality Other Narrative 07/01/2021 9:[address] [facility] ? Zio Patch? Ambulatory Cardiac Event [...] atrial premature beat conducted with a prolonged [place] interval, strongly suggestive of atrioventricular makayla reentrant [...] as described ?? Kurt Larose MD, PhD, [facility] Cardiac Electrophysiology Mario Hallman MD CARDIAC SERVICES ORD ERABLES * CARDIAC CATHETERIZATION (06/09/2021 9:05 AM EDT) Anatomical Region Laterality Modality Other Narrative 06/09/2021 9:09 AM EDT ?[facility] ? Cardiac Catheterization/Intervention Report ? Patient Name: Neisha, Loida ? Procedure Date: 06/09/2021 ? A #: [id number] ? Primary Physician: Aaron Ash ? Case #: [id number] ? File Name: [id number] ? Catheterization Order Number: [id number] ? [facility] ? Final Report [place], [place] ? Patient Name: ? Loida Neisha ? ID#: ?[id number] ? : ?1970 ? Procedure Date: ? [...] was Urgent. 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 Chest pain symptom [...] Procedure Note Aaron Ash MD - 06/23/2021 [facility] Cardiac Catheterization/Intervention Report Patient Name: Loida Roque Procedure Date: 06/09/2021 A #: [id number] Primary Physician: Aaron Ash Case #: [id number] File Name: [id number] Catheterization Order Number: [id number] [facility] FinalReport [place], [place] Patient Name: Loida Roque ID#:[id number] :1970 Procedure Date: June 09, 2021 Case [...] patientwas designated as ASA Class III. The [facility] clinical frailty scale is 2:Well. Diagnostic [...] procedure was Urgent. 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 Chest pain symptomassessment [...] Natriuretic Peptide (06/09/2021 3:37 AM EDT) Pathologist [facility] ProBNP 911(H) <=124 pg/mL [facility] Blood Venous Draw / Unknown 06/09/2021 3:37 AM EDT 06/09/2021 3:59 AM EDT Narrative Resulting Agency Comment Spec In Lab Deja SANDRA CHEMISTRY ORDERABLES [facility] [place] [address] * Differential, Automated (06/09/2021 3:37 AM EDT) [facility] Neutrophils % 64.9 % [facility] Neutr Abs (ANC) 5.12 1.70 - 6.10 x10(3)/[facility] LABORAT[facility] Lymphocytes % 21.9 % [facility] Lymphocytes Abs 1.7 0.9 - 3.2 x10(3)/[facility]OR[facility] Monocytes % 8.6 % [facility] Monocyte Abs 0.7 0.3 - 0.9 x10(3)/[facility] Eosinophils % 3.4 % [facility] Eosinophils Abs 0.3 0.0 - 0.4 x10(3)/[facility] Basophils % 0.8 % [facility] Basophils Abs 0.1 0.0 - 0.1 x10(3)/[facility]OR[facility] Immature Gran % 0.40 % [facility] Comment: Immature granulocytes(IG's)percentage and absolute count will include metamyelocytes, myelocytes, and promyelocytes. Blood smears from CBCs yielding IG's will be scanned manually for concordance. If this scan disagrees with the automated IG or if promyelocytes are noted, a manual differential will be performed. Shonda Gran Abs 0.03 0.00 - 0.04 x10(3)/[facility] Blood 06/09/2021 3:37 AM EDT 06/09/2021 3:58 AM EDT Narrative Resulting Agency Comment Spec In Lab Deja SANDRA HEMATOLOGY ORDERABLE S [facility] [place] [address] * (ABNORMAL) Hemogram (06/09/2021 3:37 AM EDT) WBC 7.9 4.0 - 9.5 x10(3)/[facility] RBC 4.88 4.00 - 5.21 x10(6)/[facility] Hemoglobin 15.2 11.7 - 15.5 g/dL [facility] Hematocrit 46.5(H) 35.7 - 45.8 % [facility] MCV 95.3(H) 82.6 - 94.4 [facility] MCH 31.1 27.1 - 32.0 pg [facility] MCHC 32.7 31.7 - 35.0 g/dL [facility] Platelets 334 145 - 357 x10(3)/[facility] RDWSD 49.2(H) 37.0 - 46.0 [facility] RDWCV 14.5(H) 11.5 - 14.1 % [facility] MPV 10.2 7.6 - 12.9 [facility] nRBC % Auto 0.0 % [facility] nRBC Abs Auto 0.000 0.000 - 0.000 x10(3)/[facility] Blood 06/09/2021 3:37 AM EDT 06/09/2021 3:58 AM EDT Narrative Resulting Agency Comment Spec In Lab Deja SANDRA HEMATOLOGY ORDERABLE S [facility] [place] [address] * (ABNORMAL) BMP w/fasting Glucose (06/09/2021 3:37 AM EDT) Glucose Fasting 103(H) 65 - 99 mg/dL [facility] Comment: ?Fasting* Glucose [...] of Diabetes Mellitus, Position Statement from the [place] Diabetes Association. ??Diabetes Care, Volume 33, Supplement 1, Mar 2009 BUN 23(H) 8 - 18 mg/dL [facility] Creatinine 0.86 0.70 - 1.20 mg/dL [facility] [...] [facility] Estimated GFR 78 >=60 mL/min/1. 73 m?? [facility] [...] In Lab Mario Hallman MD CHEMISTRY ORDERABLES [facility] [place] [address] * Heparin (unfractionated) Level (06/08/2021 4:07 PM [...] Mario Hallman MD HEMATOLOGY ORDERABLE S [facility] [place] [address] * XR Chest PA & Lateral (Generic) [...] questions please contact the health career development director that requested 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 ? [...] have questions please contactthe health career development director that requested 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 Electronically signed by: Magda Machado MD, [facility] ([phone]), at 06/08/2021 6:00 PM Mario Hallman MD [...] questions please contact the health career development director that requested 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 ? [...] have questions please contactthe health career development director that requested 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 Mario Hallman MD IMG MRI ORDERABLES * (ABNORMAL) CRP, acute inflammation (06/08/2021 11:58 AM EDT) CRP 28.1(H) <=4.9 mg/L [facility] Blood 06/08/2021 11:5 8 AM EDT 06/08/2021 12:04 PM EDT Narrative Resulting Agency Comment Spec In Lab Mario Hallman MD CHEMISTRY ORDERABLES [facility] [place] [address] * CK (06/08/2021 11:58 AM EDT) Pathologist [facility] CK, Total 30 0 - 160 unit/L [facility] Blood 06/08/2021 11:5 8 AM EDT 06/08/2021 12:04 PM EDT Narrative Resulting Agency Comment Spec In Lab Mario Hallman MD CHEMISTRY ORDERABLES Performing Organization Address [facility] Co de Phone Number [facility] [place] [address] * (ABNORMAL) Sedimentation rate (06/08/2021 11:58 AM EDT) [facility] Sed Rate 53(H) 2 - 39 mm/hr [facility] Comment: Effective February 15, 2019 new capillary photometric technology has resulted in a change in reference ranges. It is recommended that each ESR result be reviewed with its own age appropriate reference range. Blood 06/08/2021 11:5 8 AM EDT 06/08/2021 12:04 PM EDT Narrative Resulting Agency Comment Spec In Lab Mario Hallman MD HEMATOLOGY ORDERABLE S Performing Organization Address [facility] de Phone Number [facility] [place] [address] * Heparin (unfractionated) Level (06/08/2021 11:58 AM EDT) [facility] Heparin UFH Level 0.77 IU/mL [facility] Comment: [...] MD HEMATOLOGY ORDERABLE S Performing Organization Address [facility] Co de Phone Number [facility] [place] [address] * urine, qualitative ([facility]/CGP/NLH) (06/08/2021 11:51 AM EDT) Spec Morning View UA 1.010 1.006 - 1.030 [facility] HCG Qual Negative [facility] Comment: Dilute urine samples can result in a false negative test. Repeat testing on a first morning sample or a plasma quantitative hCG measurement is recommended. Urine 06/08/2021 11:5 1 AM EDT 06/08/2021 12:32 PM EDT Narrative Resulting Agency Comment Spec In Lab Mario Hallman MD URINE ORDERABLES Performing Organization Address [facility] de Phone Number [facility] [place] [address] * ECHO COMPLETE W CONTRAST (06/08/2021 11:09 AM EDT) Anatomical Region Laterality Modality Other 06/08/2021 9:35 AM EDT Narrative 06/08/2021 12:42 PM EDT ?[facility] ?[address] ? [place] [address] ?Voice: ?Fax: ? Echocardiogram Report Name: NEISHA, LOIDA ? Study Date: 06/08/2021 09:35 AMBP: 109/69 mmHg ? Patient Location: ICCU^432^A : 1970 ? Height: 163 cm ? Account: [id number] Age: 51 yrs ? Weight: 95 kg Gender: Female ?BSA: 2.0 m2 Ordering Physician: DONALD Referring Physician: AJ HARTMAN Performed By: Aaron Herr RDCS Reason For Study: NSTEMI (non-ST elevated myocardial infarction) Exam Location: [facility]. Interpretation Summary 1. Left ventricle is [...] significant change from prior in 08/2019. Procedure Complete-59602. Image enhancement Definity was used for left [...] Procedure Note Kai Haider MD - 06/08/2021 [facility] [address] [place] [address] Voice: Fax: Echocardiogram Report Name: LOIDA ROQUE Study Date: 209:35 AMBP: 109/69 mmHg Patient Location:[address] : 1970 Height: 163 cm Account: [id number] Age: 51 yrs Weight: 95 kg Gender: Female BSA: 2.0 m2 Ordering Physician: DONALD Referring Physician: AJ HARTMAN Performed By: Aaron Herr RDCS Reason For Study: NSTEMI (non-ST elevated myocardial infarction) Exam Location: [facility]. Interpretation Summary 1. Left ventricle is [...] significant change from prior in 08/2019. Procedure Complete-01013. Image enhancement Definity was used for left [...] max ilir: 39.0 cm/sec MV A max liir: 20.9 cm/sec MV E/A: 1.9 MV dec [...] EDT) Heparin UFH Level 1.20(Crit ical) IU/mL [facility] [...] Lab Edie Costello MD HEMATOLOGY ORDERABLE S [facility] [place] [address] * (ABNORMAL) Differential, Automated (06/08/2021 4:41 AM EDT) Neutrophils % 71.8 % [facility] Neutr Abs (ANC) 8.09(H) 1.70 - 6.10 x10(3)/mc L [facility] Lymphocytes % 18.0 % [facility] Lymphocytes Abs 2.0 0.9 - 3.2 x10(3)/mc L [facility] Monocytes % 5.7 % [facility] LABORATORY Monocyte Abs 0.6 0.3 - 0.9 x10(3)/mc L [facility] Eosinophils % 3.5 % [facility] Eosinophils Abs 0.4 0.0 - 0.4 x10(3)/mc L [facility] Basophils % 0.6 % [place] [...] Abs 0.05(H) 0.00 - 0.04 x10(3)/mc L [facility] Blood 06/08/2021 4:41 AM EDT 06/08/2021 5:11 AM EDT Narrative Resulting Agency Comment Spec In Lab Deja SANDRA HEMATOLOGY ORDERABLE S Performing Organization Address City/State/[facility] Co de Phone Number [facility] [place] [address] * (ABNORMAL) Hemogram (06/08/2021 4:41 AM EDT) WBC 11.3(H) 4.0 - 9.5 x10(3)/[facility] LABORATORY RBC 4.64 4.00 - 5.21 x10(6)/[facility] LABORATORY Hemoglobin 13.9 11.7 - 15.5 g/dL [facility] Hematocrit 43.0 35.7 - 45.8 % [facility] MCV 92.7 82.6 - 94.4 fL [facility] MCH 30.0 27.1 - 32.0 pg [facility] MCHC 32.3 31.7 - 35.0 g/dL [facility] Platelets 312 145 - 357 x10(3)/[facility] RDWSD 47.4(H) 37.0 - 46.0 fL [facility] RDWCV 14.3(H) 11.5 - 14.1 % [facility] MPV 10.8 7.6 - 12.9 fL [facility] nRBC % Auto 0.0 % [facility] nRBC Abs Auto 0.000 0.000 - 0.000 x10(3)/mcL [facility] Blood 06/08/2021 4:41 AM EDT 06/08/2021 5:11 AM EDT Narrative Resulting Agency Comment Spec In Lab Deja SANDRA HEMATOLOGY ORDERABLE S [facility] [place] [address] * (ABNORMAL) Heparin (unfractionated) Level (06/08/2021 4:41 AM EDT) Heparin UFH Level 1.06(Crit ical) IU/mL [facility] [...] Lab Mario Hallman MD HEMATOLOGY ORDERABLE S [facility] [place] [address] * (ABNORMAL) BMP w/fasting Glucose (06/08/2021 4:41 AM EDT) Glucose Fasting 95 65 - 99 mg/dL [facility] Comment: ?Fasting* Glucose [...] of Diabetes Mellitus, Position Statement from the [place] Diabetes Association. ??Diabetes Care, Volume 33, Supplement 1, Mar 2009 BUN 21(H) 8 - 18 mg/dL [facility] Creatinine 0.87 0.70 - 1.20 mg/dL [facility] mmol/L [facility] Calcium 8.7 8.5 - 10.5 mg/dL [facility] Estimated GFR 77 >=60 mL/min/1. 73 m?? [facility] [...] In Lab Mario Hallman MD CHEMISTRY ORDERABLES [facility] [place] [address] * Troponin (06/08/2021 4:41 AM EDT) Troponin-T <0.01 0.00 - 0.00 ng/mL [facility] ischemia ?? New or presumed new significant HE-dhdtcnl-D wave (ST-T) changes or new left bundle [...] additional sample may be indicated. Reference: [place] Definition of Myocardial Infarction. Journal of the [place] College of Cardiology 2012;60:1581-98 Blood 06/08/2021 4:41 AM EDT 06/08/2021 5:12 AM EDT Narrative Resulting Agency Comment Spec In Lab Mario Hallman MD CHEMISTRY ORDERABLES [facility] [place] [address] * Heparin (unfractionated) Level (06/07/2021 9:55 PM EDT) [facility] Heparin UFH Level 0.08 IU/mL [facility] Comment: [...] Lab Mario Hallman MD HEMATOLOGY ORDERABLE S [facility] [place] [address] * (ABNORMAL) pro-Brain Natriuretic Peptide (06/07/2021 5:26 PM EDT) [facility] ProBNP 2,701(H) <=124 pg/mL [facility] Blood Venous Draw / Unknown 06/07/2021 5:26 PM EDT 06/07/2021 5:44 PM EDT Narrative Resulting Agency Comment Spec In Lab Deja SANDRA CHEMISTRY ORDERABLES [facility] [place] [address] * (ABNORMAL) Differential, Automated (06/07/2021 5:26 PM EDT) [facility] Neutrophils % 74.6 % [facility] Neutr Abs (ANC) 8.97(H) 1.70 - 6.10 x10(3)/[facility] LABORATORY Lymphocytes % 15.9 % [facility] Lymphocytes Abs 1.9 0.9 - 3.2 x10(3)/[facility] LABORATORY Monocytes % 6.0 % [facility] Monocyte Abs 0.7 0.3 - 0.9 x10(3)/[facility] LABORATORY Eosinophils % 2.6 % [facility] Eosinophils Abs 0.3 0.0 - 0.4 x10(3)/[facility] LABORATORY Basophils % 0.5 % [facility] Basophils Abs 0.1 0.0 - 0.1 x10(3)/[facility] LABORATORY Immature Gran % 0.40 % [facility] Comment: Immature granulocytes(IG's)percentage and absolute count will include metamyelocytes, myelocytes, and promyelocytes. Blood smears from CBCs yielding IG's will be scanned manually for concordance. If this scan disagrees with the automated IG or if promyelocytes are noted, a manual differential will be performed. Shonda Gran Abs 0.05(H) 0.00 - 0.04 x10(3)/[facility] LABORATORY Blood 06/07/2021 5:26 PM EDT 06/07/2021 5:36 PM EDT Narrative Resulting Agency Comment Spec In Lab Deja SANDRA HEMATOLOGY ORDERABLE S [facility] [place] [address] * (ABNORMAL) Hemogram (06/07/2021 5:26 PM EDT) WBC 12.0(H) 4.0 - 9.5 x10(3)/[facility] LABORATORY RBC 4.72 4.00 - 5.21 x10(6)/[facility] LABORATORY Hemoglobin 14.5 11.7 - 15.5 g/dL [facility] Hematocrit 44.0 35.7 - 45.8 % [facility] MCV 93.2 82.6 - 94.4 fL [facility] MCH 30.7 27.1 - 32.0 pg [facility] MCHC 33.0 31.7 - 35.0 g/dL [facility] [place] Platelets 346 145 - 357 x10(3)/[facility] LABORATORY RDWSD 47.2(H) 37.0 - 46.0 [facility] LABORATORY RDWCV 14.4(H) 11.5 - 14.1 % [facility] MPV 10.6 7.6 - 12.9 [facility] LABORATORY nRBC % Auto 0.0 % [facility] nRBC Abs Auto 0.000 0.000 - 0.000 x10(3)/[facility] LABORATORY Blood 06/07/2021 5:26 PM EDT 06/07/2021 5:36 PM EDT Narrative Resulting Agency Comment Spec In Lab Deja SANDRA HEMATOLOGY ORDERABLE S [facility] [place] [address] * BMP w/fasting Glucose (06/07/2021 5:26 PM EDT) Glucose Fasting 90 65 - 99 mg/dL [facility] Comment: ?Fasting* Glucose [...] of Diabetes Mellitus, Position Statement from the [place] Diabetes Association. ??Diabetes Care, Volume 33, Supplement 1, Mar 2009 BUN 18 8 - 18 mg/dL [facility] [...] [facility] Estimated GFR 60 >=60 mL/min/1. 73 m?? [facility] [...] In Lab Mario Hallman MD CHEMISTRY ORDERABLES [facility] [place] [address] * T3 Total (06/07/2021 5:26 PM EDT) T3, Total 134 80 - 200 ng/dL [facility] Blood 06/07/2021 5:26 PM EDT 06/07/2021 5:36 PM EDT Narrative Resulting Agency Comment Spec In Lab Mario Hallman MD CHEMISTRY ORDERABLES Performing Organization Address [facility] de Phone Number [facility] [place] [address] * T4 Total (06/07/2021 5:26 PM EDT) T4, total 6.8 5.3 - 11.6 mcg/dL [facility] Comment: Reference Interval (mcg/dL): Females: ??First Trimester: 6.3-13.5 ??Second Trimester: 7.1-14.3 ??Third Trimester: 6.9-14.1 Blood 06/07/2021 5:26 PM EDT 06/07/2021 5:36 PM EDT Narrative Resulting Agency Comment Spec In Lab Mario Hallman MD CHEMISTRY ORDERABLES Performing Organization Address [facility] de Phone Number [facility] [place] [address] * (ABNORMAL) TSH (06/07/2021 5:26 PM EDT) Pathologist [facility] TSH 5.83(H) 0.27 - 4.20 mcIU/mL [facility] Comment: Reference Interval (mcIU/mL): Females: ??First Trimester: 0.23-3.88 ??Second Trimester: 0.22-3.90 ??Third Trimester: 0.44-4.66 Blood 06/07/2021 5:26 PM EDT 06/07/2021 5:36 PM EDT Narrative Resulting Agency Comment Spec In Lab Mario Hallman MD CHEMISTRY ORDERABLES Performing Organization Address City/[facility] Co de Phone Number [facility] [place] [address] * Lipase (06/07/2021 5:26 PM EDT) Lipase 18 0 - 60 unit/L [facility] Blood 06/07/2021 5:26 PM EDT 06/07/2021 5:36 PM EDT Narrative Resulting Agency Comment Spec In Lab Mario Hallman MD CHEMISTRY ORDERABLES Performing Organization Address City/[facility]/ZIP Co de Phone Number [facility] [place] [address] * Amylase (06/07/2021 5:26 PM EDT) Amylase 39 28 - 100 unit/L [facility] Blood 06/07/2021 5:26 PM EDT 06/07/2021 5:36 PM EDT Narrative Resulting Agency Comment Spec In Lab Mario Hallman MD CHEMISTRY ORDERABLES Performing Organization Address City/[facility]/ZIP Co de Phone Number [facility] [place] [address] * Lipid Panel (Reflex Direct LDL) (06/07/2021 5:26 PM EDT) Chol, Total 164 mg/dL [facility] Comment: Lower Risk: <200 mg/dL Average Risk: 200-239 mg/dL Higher Risk: >nd=459 mg/dL Triglycerides 144 mg/dL [facility] Comment: Average Risk/Lower Risk: <150 mg/dL Borderline High Risk: 150-199 mg/dL High Risk: 200-499 mg/dL Very High Risk: >jv=972 mg/dL HDL 44 mg/dL [facility] Comment: Males: ?? Higher Risk: <40 mg/dL Females: ?? Higher Risk: <50 mg/dL LDL Cholesterol 91 mg/dL [facility] Comment: Lowest Risk: <100 mg/dL Lower Risk: 100-129 mg/dL Borderline High Risk: 130-159 mg/dL High Risk: 160-189 mg/dL Very High Risk: >ai=549 mg/dL Chol/HDL Ratio 3.7 ratio [facility] Lipid Interpretation See Note [facility] Comment: Lipid management should be guided by a patient? s ASCVD risk, goals and preferences. ACC/AHA Guidelines recommend high intensity statin if clinical ASCVD or LDL greater than or equal to 190 mg/dL. http://Spring.me.com/SGD-CQQ-Twmqwpxag Adults aged 40-75 with LDL 70-189 mg/dL should have their 10 year ASCVD risk estimated with the ACC/AHA ASCVD risk gas prover http://tools.acc.org/RUQSM-Wwlh-Cwngfkswq/ Statin should be discussed if risk greater [...] Hallman MD CHEMISTRY ORDERABLES Performing Organization Address City/[facility]/ZIP Co de Phone Number [facility] [place] [address] * CK (06/07/2021 5:26 PM EDT) CK, Total 33 0 - 160 unit/L [facility] Blood 06/07/2021 5:26 PM EDT 06/07/2021 5:36 PM EDT Narrative Resulting Agency Comment Spec In Lab Mario Hallman MD CHEMISTRY ORDERABLES Performing Organization Address City/[facility]/ZIP Co de Phone Number [facility] [place] [address] * Hemoglobin A1c (06/07/2021 5:04 PM EDT) Hemoglobin A1C 5.6 4.3 - 5.6 % [facility] Comment: Reference Range: [...] into estimated average glucose values. ??Diabetes Care 2008:31(8):3135-1275. Blood 06/07/2021 5:04 PM EDT 06/07/2021 5:36 PM EDT Narrative Resulting Agency Comment Spec In Lab Mario Hallman MD CHEMISTRY ORDERABLES Performing Organization Address City/[facility]/ZIP Co de Phone Number [facility] [place] [address] * Troponin (06/07/2021 5:04 PM EDT) [facility] Troponin-T <0.01 0.00 - 0.00 ng/mL [facility] ischemia ?? New or presumed new significant CS-wsglihz-R wave (ST-T) changes or new left bundle [...] additional sample may be indicated. Reference: [place] Definition of Myocardial Infarction. Journal of the [place] College of Cardiology 2012;60:1581-98 Blood 06/07/2021 5:04 PM EDT 06/07/2021 5:36 PM EDT Narrative Resulting Agency Comment Spec In Lab Mario Hallman MD CHEMISTRY ORDERABLES Performing Organization Address [facility]/ZIP Co de Phone Number [facility] [place] [address] * EKG 12 Lead (06/07/2021 4:33 PM EDT) [facility] Ventricular rate 54 BPM MUSE SYSTEM Atrial Rate 54 BPM MUSE SYSTEM P-R Interval 166 ms MUSE SYSTEM QRS Duration 86 ms MUSE SYSTEM Q-T Interval 514 ms MUSE SYSTEM QTC Calculated (Bezet) 487 ms MUSE SYSTEM Calculated P [place] 30 degrees MUSE SYSTEM Calculated R [place] 22 degrees MUSE SYSTEM Calculated T [place] 18 degrees MUSE SYSTEM INTERPRETATION Sinus bradycardia Left atrial enlargement Cannot rule out Lateral infarct , age undetermined Abnormal ECG When compared with ECG of 31-AUG-2019 07:05, No significant change was found Confirmed by MD Dalia, Willy Huerta ([id number]) on 06/09/2021 4:36:27 PM MUSE SYSTEM 06/07/2021 [...] using the Simplexa COVID-19 Direct Assay by [employer] as authorized by the FDA issued Emergency [...] Department of Pathology and Laboratory Medicine at [facility], certified under the Clinical Laboratory Improvement [...] fact sheets at the following FDA website: https://www.fda.gov/medical-devices/sltvhxqczwy-eyfrmzs-4169-yqyww-06-knhgmupnd- use-a ayyniimbgsrht-yjlctqg-jpxmbee/xylsa-hzqfkqzimnk-yhhv SARS-CoV-2 Source LUNCHRO[employer] ATTENDANT Swab [facility] Nasopharyngeal Swab 06/08/19 4:30 PM EDT 06/07/2021 4:45 PM EDT Comment:Symptoms->Surveillan ce Narrative Resulting Agency Comment Spec In Lab Mario Hallman MD MICROBIOLOGY - [facility] ORDERABLES [facility] [place] [address] documented in this encounter Visit Diagnoses Diagnosis [...] PROTOCOL, Starting on 06/07/21 at 1744, Until [place] 06/08/21 at 1300, Per Protocol, START ADJUSTMENT [...] area)0900 (Automatically Held - Provider: Admin Adt)0929 ([facility] Unhold - Provider: Admin Adt) furosemide (Lasix) [...] - Provider: Jo Ann Maldonado RN) 0853 ([facility] Hold - Provider: Admin Adt - Reason: Transfer to a Procedural area)0900 (Automatically Held - Provider: Admin Adt)0929 ([facility] Unhold - Provider: Admin Adt)0939 (Given - Provider: Jo Ann Maldonado RN) gabapentin (Neurontin) capsule 300 mg 300 mg, Oral, 2 TIMES DAILY, First dose on 06/07/21 at 2100, Until Discontinued, Routine 2026 (Given - Provider: Olive Anne RN) 0908 (Given - Provider: Jo Ann Maldonado RN)210 (Given - Provider: Colette Medina RN) 0853 ([facility] Hold - Provider: Admin Adt - Reason: Transfer to a Procedural area)0900 (Automatically Held - Provider: Admin Adt)0929 ([facility] Unhold - Provider: Admin Adt)0940 (Given - Provider: Jo Ann Maldonado RN) lisinopriL (Zestril) tablet 2.5 mg 2.5 mg, Oral, DAILY, First dose on 06/07/21 at 1845, Until Discontinued, Routine 1844 (Not Given - Provider: Olive Anne RN - Reason: See comment - Comment: dose in AM) 0908 (Given - Provider: Jo Ann Maldonado RN) 0853 ([facility] Hold - Provider: Admin Adt - Reason: Transfer to a Procedural area)0900 (Automatically Held - Provider: Admin Adt)0929 ([facility] Unhold - Provider: Admin Adt)0939 (Given - [...] takes this as needed for allergies.) 0853 ([facility] Hold - Provider: Admin Adt - Reason: Transfer to a Procedural area)0900 (Not Given - Provider: Jo Ann Maldonado RN - Reason: Patient/family refused - Comment: only takes as needed)0929 ([facility] Unhold - Provider: Admin Adt) metoprolol tartrate [...] not met - Comment: HR 56) 0853 ([facility] Hold - Provider: Admin Adt - Reason: Transfer to a Procedural area)0900 (Not Given - Provider: Jo Ann Maldonado RN - Reason: Order parameters not met - Comment: HR 48)0929 ([facility] Unhold - Provider: Admin Adt) montelukast (Singulair) tablet 10 mg 10 mg, Oral, NIGHTLY, First dose on 06/07/21 at 2100, Until Discontinued 2025 (Given - Provider: Olive Anne RN) 2058 (Given - Provider: Colette Medina RN) 0853 ([facility] Hold - Provider: Admin Adt - Reason: Transfer to a Procedural area)0929 ([facility] Unhold - Provider: Admin Adt) rOPINIRole (Requip) [...] Routine documented in this encounter Care Teams Piano Professor Relationship Specialty Start Date End Date Polo Pearce PA [address] [place] [address] PCP - General Internal Medicine 06/09/21 documented as of this encounter
--- OUTSIDE RECORDS SUMMARY | 2023-09-20 18:39 | XMS_ITS | Encounter Summary ---
Author Organization [facility] Address [facility] [place] [address] Care Team Providers Care Tack Cutter Name Role Phone Tim Rogers DNP Primary Care Provider [phone] Encounter Details Date Type Department Care Team (Latest Contact Info) Description 05/30/2021 9:30 AM EDT TH Visit (TeleHealth) [place] [address] Beto Miller MD [facility] [place] [address] Pleurisy with effusion; *History of COVID-19; Chronic [...] 05/30/21 PCP: Polo Pearce and Tim Rogers, SECURITY ASSOCIATE [address] [place] [address] Pulmonary Background: ?? Cough, dyspnea, wheeze and [...] 1: 80, normal SSA, SSB, Alcantar antibody, GLASS TINTER antibody, ANCA, MPO antibody, MN-3 antibody, serum RITCHIE, CBC, BMP and CRP [...] I reviewed the chest x-ray done at [place] at the time which showed bilateral hazy opacities (mild). Debbie was not hospitalized for Covid and seemed to make a short-term recovery but by late April was again struggling. She describes increased cough and dyspnea and went to the emergency room at [place] May 02. I do not have that [...] the May 27 CT chest images from [facility] and her April chest x-ray images ??? Once I have reviewed these I will contact the patient and potentially involve local resaw operator, Ryanne Wilson, who I do not think is ever seen the patient but may be a useful local resourcegiven Indira's complicated history Outpatient Established Visits Time MDM 15420 10-19 Straightforward 58259 20-29 X Low 68232 30-39 Moderate 34485 40-54 High 78577 + 15 mins Beto Miller MD documented in this encounter Plan of Treatment Upcoming Encounters Date Type Department Care Team (Late st Contact Info) Description 10/08/2023 8:30 AM EDT [facility] [address] Jose Cook 10/08/2023 9:30 AM EDT Office Visit Vascular Surgery at [address] MD [facility] [place] [address] 10/21/2023 10:30 AM EDT Appointment Nuclear Medicine at [address] [facility] [place] [address] 10/21/2023 11:30 AM EDT Appointment Nuclear Medicine at [address] [facility] [place] [address] 10/21/2023 12:30 PM EDT Appointment Nuclear Medicine at [place] [phone] Mary Reyes [facility] [place] [address] 10/21/2023 1:30 PM EDT Appointment Nuclear Medicine at [place] [phone] Mary Reyes [facility] [place] [place] [address] 10/21/2023 2:30 PM EDT Appointment Nuclear Medicine at [place] [phone] [facility] [place] [address] 10/26/2023 4:00 PM EDT Office Visit Cardiology at [address] [phone] Jaspreet Kinsey MD [facility] [place] [address] 10/28/2023 9:00 AM EDT Office [place] [address] 10/29/2023 10:00 AM EDT Clinical [place] [address] 10/29/2023 10:15 AM EDT Procedure [place] [address] 11/01/2023 5:00 PM EDT Office Visit [place] [phone] Selene Browning, PhD [facility] [place] [address] 11/22/2023 4:40 PM EDT Office Visit Cardiology at [address] [phone] Porsha Mcdaniels MD [facility] [place] [address] 12/13/2023 10:00 AM EDT Clinical Support [place] [phone] [facility] [address] [place] [address] documented as of this encounter Visit Diagnoses Diagnosis Pleurisy with effusion Unspecified pleural effusion History of COVID-19 Chronic cough Cough RAVI (dyspnea on exertion) Other dyspnea and respiratory abnormality documented in this encounter Care Teams Tack Cutter Relationship Specialty Start Date End Date Tim Rogers DNP PCP - General Family Medicine 08/28/19 06/08/21 documented as of this encounter
--- OUTSIDE RECORDS SUMMARY | 2023-09-20 18:39 | XMS_ITS | Encounter Summary ---
Author Organization Formerly [facility] [place] [address] Care Team Providers Care Supervisor Hydrochloric Area Name Role Phone Tim Rogers DNP Primary Care Provider [phone] Encounter Details Date Type Department Care Team (Late st Contact Info) Description 06/06/2021 [place] [address] Paulo Ramachandran Jr., MD [facility] [place] [address] Social History Tobacco Use Types Packs/Day Years [...] Encounter - Paulo Ramachandran Jr., MD - 06/06/2021 5:59 PM EDT Contacted by [facility] ED for cardiology consultation. History taking and objective data are per the [facility]SH ED provider/staff member. Referring Provider: Stuart Iyer MD [address] [place] [address] [place] [address] Indira Roque 51 y.o. w / a [...] pt has been accepted for transfer to [facility] tomorrow. I asked the provider to contact us again if there is change in clinical status. documented in this encounter Plan of Treatment Upcoming Encounters Date Type Department Care Team (Late st Contact Info) Description 10/08/2023 8:30 AM EDT Tech Visit [place] [address] Jose Cook 10/08/2023 9:30 AM EDT Office Visit [place] [address] MD [facility] VASCULAR SURGERY [place], [place] [id number] 10/21/2023 10:30 AM EDT Appointment [place] [address] Mary Reyes APRN [facility] [place] [address] 10/21/2023 11:30 AM EDT Appointment [place] [address] Mary Reyes, [facility] [place] [address] 10/21/2023 12:30 PM EDT Appointment [place] [address] Mary Reyes [facility] [place] [address] 10/21/2023 1:30 PM EDT Appointment [place] [address] Mary Reyes [facility] [place] [address] 10/21/2023 2:30 PM EDT Appointment [place] [address] Mary Reyes, [facility] [place] [address] 10/26/2023 4:00 PM EDT Office Visit Cardiology at [address] [address] Jaspreet Kinsey MD [facility] [place] [address] 10/28/2023 9:00 AM EDT Office Visit [place] [address] 10/29/2023 10:00 AM EDT Clinical Support [place] [address] 10/29/2023 10:15 AM EDT Procedure visit [place] [address] 11/01/2023 5:00 PM EDT Office Visit [place] [address] Selene Browning, PhD [facility] [place] [address] 11/22/2023 4:40 PM EDT Office Visit Cardiology at [address] [phone] Porsha Mcdaniels MD [facility] [place] [address] 12/13/2023 10:00 AM EDT Clinical Support [place] [address] Lucero Romero, RD [facility] [place] [address] documented as of this encounter Visit Diagnoses Not on filedocumented in this encounter Care Teams Supervisor Hydrochloric Area Relationship Specialty Start Date End Date Tim Rogers DNP PCP - General Family Medicine 08/28/19 06/08/21 documented as of this encounter
--- OUTSIDE RECORDS SUMMARY | 2023-09-20 18:39 | XMS_ITS | Encounter Summary ---
[place] [address] Care Team Providers Care Road Tester Name Role Phone Tim Rogers DNP Primary Care Provider Encounter Details Date Type Department Care Team (Late st Contact Info) Description 05/27/2021 Ancillary Procedure [place] [phone] Tim Rogers DNP [address] [facility] [place] [place] [id number] Social History Tobacco Use Types Packs/Day Years [...] AM EDT Tech Visit [place] [address] Jose Cook 10/08/2023 9:30 AM EDT Office [place] [address] MD [facility] [place] [address] 10/21/2023 10:30 AM EDT Appointment Nuclear Medicine at [address] Mary Reyes, [facility] [place] [address] 10/21/2023 11:30 AM EDT Appointment Nuclear Medicine at [place] [phone] Mary Reyes [facility] [place] [address] 10/21/2023 12:30 PM EDT Appointment [place] [address] Mary Reyes [facility] [place] [address] 10/21/2023 1:30 PM EDT Appointment [place] [address] Mary Reyes [facility] [place] [address] 10/21/2023 2:30 PM EDT Appointment [place] [address] Mary Reyes [facility] [place] [address] 10/26/2023 4:00 PM EDT Office Visit Cardiology at [address] [phone] Jaspreet Kinsey MD [facility] [place] [address] 10/28/2023 9:00 AM EDT Office [place] [address] 10/29/2023 10:00 AM EDT Clinical [place] [address] 10/29/2023 10:15 AM EDT Procedure [place] [address] 11/01/2023 5:00 PM EDT Office Visit Gastroenterology at [place] [phone] Selene Browning, PhD [facility] [place] [address] 11/22/2023 4:40 PM EDT Office Visit Cardiology at [address] [address] Porsha Mcdaniels MD [facility] [place] [address] 12/13/2023 10:00 AM EDT Clinical [place] [phone] Lucero Romero, [facility] [place] [address] documented as of this encounter Procedures Procedure Name Priority Date/Time Associated Diagnosis Comments FILM LIBRARY STORAGE ONLY CT ABDOMEN AND PELVIS Routine 05/27/2021 12:00 AM EDT documented in this encounter Results * Film Library- Storage Only CT Abdomen & Pelvis (05/27/2021 12:00 AM EDT) Narrative [facility] - 05/30/2021 2:30 PM EDT This exam is auto-finalizing. It's purpose is for storage only. Tim Rogers DNP IMG FILM LIBRARY OR DERABLES [place], [place] documented in this encounter Visit Diagnoses Not on filedocumented in this encounter Care Teams Road Tester Relationship Specialty Start Date End Date Tmi Rogers DNP PCP - General Family Medicine 08/28/19 06/08/21 documented as of this encounter
--- OUTSIDE RECORDS SUMMARY | 2023-09-20 18:39 | XMS_ITS | Encounter Summary ---
[place] [address] Care Team Providers Care Mercury Recoverer Name Role Phone Polo Pearce Primary Care Provider [phone] Reason for Referral * Diagnostic Test (Routine) - Closed Specialty Diagnoses / Procedures Referred By Jayant harris Referred To Contact Cardiology Diagnoses Elevated blood pressure reading without diagnosis of hypertension Procedures Ziopatch 48 Hrs-15 Days Deja Zaidi PA [facility] [place] [address] [facility] [place] [address] Referral ID Status Reason Start Date Expiration Date V isits Requested Visits Authorized [id number] Closed Specialty Service Requested 06/09/2021 12/09/2021 1 1 Reason for Visit * Diagnostic Test (Routine) - Closed Specialty Diagnoses / Procedures Referred By Jayant harris Referred To Contact Cardiology Diagnoses Elevated blood pressure reading without diagnosis of hypertension Procedures Ziopatch 48 Hrs-15 Days Deja Zaidi PA [facility] [place] [address] [facility] [place] [address] Referral ID Status Reason Start Date Expiration Date V isits Requested Visits Authorized [id number] Closed Specialty Service Requested 06/09/2021 12/09/2021 1 1 Encounter Details Date Type Department Care Team (Latest Contact Info) Description 06/09/2021 3:00 PM EDT - 06/09/2021 11:59 PM EDT Hospital Encounter Non-[place] [phone] Elevated blood pressure reading without diagnosis of [...] as needed. fluticasone propionate (FLONASE) 50 mcg/actuation Benedict, Suspension 1 spray by Each Nare route [...] AM EDT Tech [place] [address] Jose Cook 10/08/2023 9:30 AM EDT Office [place] [phone] MD [facility] [place] [address] 10/21/2023 10:30 AM EDT Appointment Nuclear Medicine at [address]1000 Mary Reyes [facility] [place] [address] 10/21/2023 11:30 AM EDT Appointment Nuclear Medicine at [address]1000 Mary Reyes [facility] [place] [address] 10/21/2023 12:30 PM EDT Appointment Nuclear Medicine at [place] [phone] Mary Reyes [facility] [place] [address] 10/21/2023 1:30 PM EDT Appointment Nuclear Medicine at [place] [phone] Mary Reyes [facility] [place] [address] 10/21/2023 2:30 PM EDT Appointment [place] [phone] Mary Reyes [facility] [place] [address] 10/26/2023 4:00 PM EDT Office Visit Cardiology at [address] [phone] Jaspreet Kinsey MD [facility] [place] [address] 10/28/2023 9:00 AM EDT Office [place] [address] 10/29/2023 10:00 AM EDT Clinical Support [place] [address] 10/29/2023 10:15 AM EDT Procedure [place] [address] 11/01/2023 5:00 PM EDT Office [place] [phone] Selene Browning, PhD [facility] [place] [address] 11/22/2023 4:40 PM EDT Office Visit Cardiology at [address] [address] Porsha Mcdaniels MD [facility] [place] [address] 12/13/2023 10:00 AM EDT Clinical [place] [address] [facility] [place] [address] documented as of this encounter Procedures Procedure Name Priority Date/Time Associated Diagnosis Comments ZIOPATCH 48 HRS-15 DAYS Routine 06/09/2021 3:48 PM EDT Elevated blood pressure reading without diagnosis of hypertension documented in this encounter Results * Ziopatch 48 Hrs-15 Days (06/09/2021 3:48 PM EDT) Anatomical Region Laterality Modality Other Narrative 07/01/2021 9:29 AM EDT [facility] ? Zio Patch? Ambulatory Cardiac Event [...] atrial premature beat conducted with a prolonged MA interval, strongly suggestive of atrioventricular makayla reentrant [...] as described ?? Kurt Larose MD, PhD, [facility] Cardiac Electrophysiology Mario Hallman MD [facility] ORD ERABLES documented in this encounter Visit Diagnoses Diagnosis Elevated blood pressure reading without diagnosis of hypertension documented in this encounter Care Teams Mercury Recoverer Relationship Specialty Start Date End Date Polo Pearce PA [address] [place] [address] PCP - General Internal Medicine 06/09/21 documented as of this encounter
--- OUTSIDE RECORDS SUMMARY | 2023-09-20 18:39 | XMS_ITS | Encounter Summary ---
[place] [address] Care Team Providers Care Soft Iron Inspector Name Role Phone Tim Rogers DNP Primary Care Provider [phone] Encounter Details Date Type Department Care Team (Late st Contact Info) Description 03/23/2021 Ancillary Procedure [place] [phone] Tim Rogers DNP [address] [facility] [place] [place] [id number] Social History Tobacco Use Types Packs/Day Years [...] AM EDT Tech [place] [address] Jose Cook 10/08/2023 9:30 AM EDT Office Visit [place] [address] MD [facility] [place] [address] 10/21/2023 10:30 AM EDT Appointment Nuclear Medicine at [address]1000 Mary Reyes, [facility] [place] [address] 10/21/2023 11:30 AM EDT Appointment Nuclear Medicine at [place] [phone] Mary Reyes [facility] [place] [address] 10/21/2023 12:30 PM EDT Appointment [place] [address] aMry Reyes [facility] [place] [address] 10/21/2023 1:30 PM EDT Appointment [place] [phone] Mary Reyes [facility] [place] [address] 10/21/2023 2:30 PM EDT Appointment [place] [phone] Mary Reyes [facility] [place] [address] 10/26/2023 4:00 PM EDT Office Visit Cardiology at [address] [phone] Jaspreet Kinsey MD [place] [address] 10/28/2023 9:00 AM EDT Office Visit [place] [address] 10/29/2023 10:00 AM EDT Clinical [place] [address] 10/29/2023 10:15 AM EDT Procedure visit [place] [address] 11/01/2023 5:00 PM EDT Office Visit Gastroenterology at [place] [phone] Selene Browning, PhD [facility] [address] 11/22/2023 4:40 PM EDT Office Visit Cardiology at [address] [address] Porsha Mcdaniels MD [facility] [address] 12/13/2023 10:00 AM EDT Clinical Support [place] [phone] Lucero Romero, [facility] [place] [address] documented as of this encounter Procedures Procedure Name Priority Date/Time Associated Diagnosis Comments FILM LIBRARY STORAGE ONLY DX CHEST Routine 03/23/2021 12:00 AM EST documented in this encounter Results * Film Library- Storage Only DX Chest (03/23/2021 12:00 AM EST) Narrative [facility] - 04/03/2021 11:45 AM EST This exam is auto-finalizing. It's purpose is for storage only. Tim Rogers DNP IMG FILM LIBRARY OR DERABLES [place], [place] documented in this encounter Visit Diagnoses Not on filedocumented in this encounter Care Teams Soft Iron Inspector Relationship Specialty Start Date End Date Tim Rogers DNP PCP - General Family Medicine 08/28/19 06/08/21 documented as of this encounter
--- OUTSIDE RECORDS SUMMARY | 2023-09-20 18:39 | XMS_ITS | Encounter Summary ---
[place] [address] Care Team Providers Care Machine Assembler Supervisor Name Role Phone Tim Rogers DNP Primary Care Provider [phone] Encounter Details Date Type Department Care Team (Late st Contact Info) Description 05/02/2021 Ancillary Procedure [place] [phone] iTm Rogers DNP [address] [place], [place] [phone] Social History Tobacco Use Types Packs/Day Years [...] AM EDT Tech [place] [address] Jose Cook 10/08/2023 9:30 AM EDT Office [place] [address] MD [facility] [place] [address] 10/21/2023 10:30 AM EDT Appointment Nuclear Medicine at [address]1000 Mary Reyes, [facility] [place] [address] 10/21/2023 11:30 AM EDT Appointment Nuclear Medicine at [place] [phone] Mary Reyes [facility] [address] 10/21/2023 12:30 PM EDT Appointment [place] [phone] Mary Reyes [facility] [place] [address] 10/21/2023 1:30 PM EDT Appointment [place] [address] Mary Reyes [facility] [place] [address] 10/21/2023 2:30 PM EDT Appointment [place] [address] Mary Reyes [facility] [place] [address] 10/26/2023 4:00 PM EDT Office Visit Cardiology at [address] [phone] Jaspreet Kinsey MD [facility] [place] [address] 10/28/2023 9:00 AM EDT Office [place] [address] 10/29/2023 10:00 AM EDT Clinical [place] [address] 10/29/2023 10:15 AM EDT Procedure [place] [address] 11/01/2023 5:00 PM EDT Office Visit Gastroenterology at [place] [phone] Selene Browning, PhD [facility] [place] [address] 11/22/2023 4:40 PM EDT Office Visit Cardiology at [address] [phone] Porsha Mcdaniels MD [facility] [place] [address] 12/13/2023 10:00 AM EDT Clinical [place] [phone] Lucero Romero, [facility] [place] [address] documented as of this encounter Procedures Procedure Name Priority Date/Time Associated Diagnosis Comments FILM LIBRARY STORAGE ONLY DX CHEST Routine 05/02/2021 12:00 AM EST documented in this encounter Results * Film Library- Storage Only DX Chest (05/02/2021 12:00 AM EST) Narrative [facility] - 05/30/2021 2:33 PM EDT This exam is auto-finalizing. It's purpose is for storage only. Tim Rogers DNP IMG FILM LIBRARY OR DERABLES [place], [place] documented in this encounter Visit Diagnoses Not on filedocumented in this encounter Care Teams Machine Assembler Supervisor Relationship Specialty Start Date End Date Tim Rogers DNP PCP - General Family Medicine 08/28/19 06/08/21 documented as of this encounter
--- OUTSIDE RECORDS SUMMARY | 2023-09-20 18:39 | XMS_ITS | Encounter Summary ---
[place] [address] Care Team Providers Care Core Rescuer Name Role Phone Polo Pearce Primary Care Provider [phone] Reason for Visit * Auth/Cert Specialty Diagnoses / Procedures Referred By Jayant harris Referred To Contact Diagnoses NSTEMI (non-ST elevated myocardial infarction) NSTEMI Procedures EMERGENCY OBSVO Referral ID Status Reason Start Date Expiration Date Visits Re quested Visits Authorized [id number] 1 1 Encounter Details Date Type Department Care Team (Late st Contact Info) Description 06/09/2021 8:15 AM EDT - 06/09/2021 9:15 AM EDT [place] [phone] Aaron Ash MD [facility] [place] [address] CARDIAC CATHETERIZATION Social History Tobacco Use Types [...] Loida Roque Patient Age: 51 y.o. Language: Luxembourgish Race: White Ethnicity: Not nor Admit date: [...] in a week and prn ?? Consider [place] as an out patient Inpatient Provider Contact Information: Dr. Mario Zaidi PA-C [phone] Discharge Diagnoses (Hospital Problems) and Secondary Diagnoses [...] change from prior in 08/2019. ?? Procedure Complete-[id number]. Image enhancement Definity was used for left [...] have questions please contact the health rn palliative care that requested 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 CXR [...] hysterectomy, Insomnia, and migraine who presents to [facility] with RUQ pain that radiated [...] 15. ?? Hospital Course: On admission to [facility], the patient had no complaints of chest pain or shortness of breath at rest.Telemetry was attached which showed normal sinus rhythm. Heparin drip was infusing. [facility] [place] records were reviewed. Baseline labs were checked and/or drawn. Chest Pain, [place] ruled out, Echo showed preserved LVEF Given the patient's risk factors, chronic non-specific ST-T changes on ECG, and here at [facility] normaltroponin as well as [...] significant weight, however during her stay at [facility] now she lost only [...] needed Follow up Appointments: PCP Tim Rogers, MASTIC SPRAYER [phone] to see you in a week (patient to set this up) Mel placed on 06/09/2021 Cardiology to see in a month and prn. Dr. Kinsey to see the patient in [place] on July 23 at 920 am. Please call [phone] with questions. Home oxygen therapy: N/A Arrangements for VNA/home care: none Future Appointments and Orders Future Appointments and Orders Future Appointments Provider Department Dept Phone 07/23/2021 8:20 AM Jaspreet Kinsey MD Cardiology at [place] Arrive at: [facility] [address] [phone] Future Orders Complete By Expires Ziopatch 48 Hrs-15 Days [[id number] CPT(R)] 06/09/2021 12/09/2021 Process Instructions: Scheduling Instructions: Questions: Does the patient have a pacemaker? If yes provide HI/LO settings: Apply for 7 or 14 days?: 14 Where will study be performed?: [facility] Basic Metabolic Panel (non-fasting) [LAB15 Custom] 06/16/2021 (Approximate) 06/09/2022 Process Instructions: INCLUDES: Calcium, BUN, Creat, GFR, Glucose, Lytes Scheduling Instructions: Comments: Questions: Discharge References/Attachments None documented in this encounter Discharge Instructions * Discharge Instructions* Deja Zaidi PA - 06/08/2021 1:56 PM EDT Return to work: One week Driving: as needed Follow up Appointments: PCP Tim Rogers, MASTIC SPRAYER [phone] to see you in a week (patient to set this up) Ziopatch placed on 06/09/2021 Cardiology to see in a month and prn. Dr. Kinsey to see the patient in [place] on July 23 at 920 am. Please call [phone] with questions. Home oxygen therapy: N/A Arrangements for VNA/home care: none documented in this encounter Medications at Time of Discharge Medication Sig Dispensed Refills Start Date End Date rOPINIRole (Requip) 1 mg Tablet Take 2 mg by mouth 2 times daily. 07/16/2020 loratadine (Claritin) 10 mg Tablet Take 10 mg by mouth daily as needed. fluticasone propionate (FLONASE) 50 mcg/actuation Holton, Suspension 1 spray by Each Nare route [...] Nutrition Plan: Pt seen for Na2gm diet. Supervisor Functional Testing informed pt of current diet orders and their restrictions. Pt expressed understanding and informed this movie writer that she tries to limit salt use at home. Supervisor Functional Testing and pt discussed common sources of sodium (pre-prepared foods) and alternatives (fresh/frozen veggies). Provided educational material and encouraged pt to reach out with any questions or concerns. Will continue to monitor and follow up. Continue current diet. Monitor weight. Encourage good oral intake. Support and encouragement provided. Discussed case with Clinical Dietitian Active Orders Diet Daily Healthy Menu Choices/Cardiac diet ([facility] 2 GM NA Frequency: [...] nausea and no vomiting Last Bowel Movement: (FISHERIES MANAGEMENT BIOLOGIST) Patient education / questions: provided diet order education and patient with good understanding, written education and contact information provided and all nutrition related questions answered at this time Nutrition services to follow weekly through hospital course unless consulted in the interim. Rocio Rosenthal Pager: [phone] * Deja Zaidi PA - 06/09/2021 9:14 AM EDT Inpatient Cardiology Discharge Day Note Patient Name: Loida Roque Service: BOX TOE CEMENTER / PA Responsible Attending: Mario Hallman MD [...] (from the past 24 hour(s)) urine, qualitative ([place]/[facility]P/NL) Result Value Ref Range Spec [place] UA 1.010 1.006 - 1.030 HCG Qual [...] seen on recent CT scan [place] [facility] [place] [facility] with a NSTEMI. She has [...] with Dr. Hallman. ?? JOCY Hernandez Pager [phone] JOCY MCKOY 06/09/2021 Associated attestation - Mario Hallman MD - 06/09/2021 9:37 PM EDT Cardiology Attending Addendum I shared this visit with JOCY Zaidi and guided the medical decision- making. I explained to patient the findings of echo, R heart catheterization and our diagnostic impression and medications (furosemide and empagliflozin) and possible adverse events. More than 30 minutes were spent in dyan-[id number] contact with patient and with arranging discharge [...] Jaspreet Pardo - 06/08/2021 8:34 PM EDT Loader Operator Supervisor Encounter Note Patient Name: Loida Roque : [id number] MR#: [id number] Admit Date: 06/07/2021 3:49 PM Hospital Day 0 days Narrative: Initial rounding visit to introduce geriatric physician services and to assess patient interest. Patient [...] Day Note Patient Name: Loida Roque Service: BOX TOE CEMENTER / PA Responsible Attending: Mario Hallman MD [...] ??? heparin (porcine) infusion 1,100 Units/hr (06/08/21 0799) PRN Meds:hydrOXYzine, heparin (porcine) infusion AND heparin [...] PCR Not Detected Not Detected SARS-CoV-2 Source BOX TOE CEMENTER Swab Troponin Result Value Ref Range Troponin-T [...] seen on recent CT scan [place] [facility] [place] [facility] with a NSTEMI. She has [...] with Dr. Hallman. ?? 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 ??? fluticasone propionate (FLONASE) 50 mcg/actuation Holton, Suspension 1 spray by Each Nare route [...] seen on recent CT scan [place] [facility] [place] [facility] with a NSTEMI. She has an elevated trop, BNP and lateral EKG changes. Patient is now awaiting an Echo and cardiac cath. Neurology consult called in to determine if she needs imaging prior to her Echo and cath given garbled speech a week ago. Stable at this time. TREATMENT PLAN: NSTEMI Admit to [facility] for telemetry monitoring Serial enzymes and EKGs [...] JOCY Hernandez 06/07/2021 Provider: JOCY MCKOY Pager [phone] 06/07/2021 Associated attestation - Mario Hallman MD [...] COVID test: Lab Results Component Value Date [id number] Not Detected 06/07/2021 Present on Admission: ??? NSTEMI (non-ST elevated myocardial infarction) ??? Asthma ??? MARYLOU on CPAP ??? Insomnia ??? Chronic heart failure with preserved ejection fraction Hospitalizations Within the Past 30 Days: no previous admission in last 30 days Patient receiving hospital care under Observation status. Admission order reviewed. Primary Insurance on file: [facility] Secondary Insurance on file:@ Primary care provider on file: Tim Rogers, MASTIC SPRAYER [phone] Pharmacy: [facility] - [facility] [place] - [address] [facility] [address] Advance Care Planning: Attempt Cardiopulmonary Resuscitation - Inpatient <no information> -Advanced Directive: No, declines (Boby (spouse) SDM) Current Functional Ability: Independent Functional Status Prior to Admission: Independent Home Environment: Others in the home: spouse. Current Living Arrangements: home/apartment/condo. Accessibility Concerns: . Current DME: none [address] [place] [address] Social & Family Supports: All names listed [...] private vehicle when medically ready. Registered Nurse Salon Customer Experience Specialist / Predatory Hunter will continue to follow patient???s progress and [...] Daily. ??? 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 Consider INVESTMENT BANKING ASSOCIATE consult for full evaluation and diet recommendations. [...] for further details. JOCY MCKOY 06/07/2021 Pager [phone] documented in this encounter Plan of Treatment Upcoming Encounters Date Type Department Care Team (Late st Contact Info) Description 10/08/2023 8:30 AM EDT Tech [place] [phone] Jose Cook 10/08/2023 9:30 AM EDT Office Visit [place] [phone] MD [facility] [place] [address] 10/21/2023 10:30 AM EDT Appointment [place] [phone] Mary Reyes [facility] [place] [address] 10/21/2023 11:30 AM EDT Appointment [place] [phone] Mary Reyes [facility] [place] [address] 10/21/2023 12:30 PM EDT Appointment [place] [phone] Mary Reyes [facility] [place] [address] 10/21/2023 1:30 PM EDT Appointment [place] [address] Mary Reyes APRN [facility] [place] [address] 10/21/2023 2:30 PM EDT Appointment [place] [address] Mary Reyes APRN [facility] [place] [address] 10/26/2023 4:00 PM EDT Office Visit Cardiology at [address] [phone] Jaspreet Kinsey MD [facility] [place] [address] 10/28/2023 9:00 AM EDT Office [place] [address] 10/29/2023 10:00 AM EDT Clinical [place] [address] 10/29/2023 10:15 AM EDT Procedure [place] [address] 11/01/2023 5:00 PM EDT Office Visit [place] [address] Selene Browning, PhD [facility] [place] [place] [address] 11/22/2023 4:40 PM EDT Office Visit Cardiology at [address] [phone] Porsha Mcdaniels MD [facility] [place] [place] [address] 12/13/2023 10:00 AM EDT Clinical Support Gastroenterology at [facility] [place] [address] Lucero Romero, ALVA [facility] [place] [address] documented as of this encounter Procedures Procedure [...] (non-ST elevated myocardial infarction) RAPID COVID-19 PCR ([facility]/APD/NLH) Routine 06/07/2021 4:30 PM EDT documented in this encounter Results * Ziopatch 48 Hrs-15 Days (06/09/2021 3:48 PM EDT) Anatomical Region Laterality Modality Other Narrative 07/01/2021 9:[address] [facility] ? Zio Patch? Ambulatory Cardiac Event [...] atrial premature beat conducted with a prolonged UT interval, strongly suggestive of atrioventricular makayla reentrant [...] as described ?? Kurt Larose MD, PhD, [facility] Cardiac Electrophysiology Mario Hallman MD CARDIAC SERVICES ORD ERABLES * CARDIAC CATHETERIZATION (06/09/2021 9:05 AM EDT) Anatomical Region Laterality Modality Other Narrative 06/09/2021 9:09 AM EDT ?[facility] ? Cardiac Catheterization/Intervention Report ? Patient Name: Neisha, Loida ? Procedure Date: 06/09/2021 ? A #: [id number] ? Primary Physician: Nilsa, Aaron Santana ? Case #: [id number] ? File Name: [id number] ? Catheterization Order Number: [id number] ? [facility] ? Final Report [place], [place] ? Patient Name: ? Loida Neisha ? ID#: ?[id number] ? : ?1970 ? Procedure Date: ? [...] procedure was Urgent. The indication for ?the labor law professor visit is other indication. Chest pain symptom [...] Procedure Note Aaron Ash MD - 06/23/2021 [facility] Cardiac Catheterization/Intervention Report Patient Name: Loida Roque Procedure Date: 06/09/2021 A #: [id number] Primary Physician: Aaron Ash Case #: [id number] File Name: [id number] Catheterization Order Number: [id number] [facility] FinalReport [place], [place] Patient Name: Loida Roque ID#:[id number] :1970 Procedure Date: June 09, 2021 Case [...] patientwas designated as ASA Class III. The [facility] clinical frailty scale is 2:Well. [...] diagnostic procedure was Urgent. The indicationfor the labor law professor visit is other indication. Chest pain symptomassessment [...] 3:37 AM EDT) ProBNP 911(H) <=124 pg/mL [facility] Blood Venous Draw / Unknown 06/09/2021 3:37 AM EDT 06/09/2021 3:59 AM EDT Narrative Resulting Agency Comment Spec In Lab Deja SANDRA CHEMISTRY ORDERABLES [facility] [place] [address] * Differential, Automated (06/09/2021 3:37 AM EDT) Pathologist [facility] Neutrophils % 64.9 % [facility] Neutr Abs (ANC) 5.12 1.70 - 6.10 x10(3)/[facility] Lymphocytes % 21.9 % [facility] Lymphocytes Abs 1.7 0.9 - 3.2 x10(3)/[facility] Monocytes % 8.6 % [facility] Monocyte Abs 0.7 0.3 - 0.9 x10(3)/[facility] Eosinophils % 3.4 % [facility] Eosinophils Abs 0.3 0.0 - 0.4 x10(3)/[facility] Basophils % 0.8 % [facility] Basophils Abs 0.1 0.0 - 0.1 x10(3)/[facility] Immature Gran % 0.40 % [facility] Comment: Immature granulocytes(IG's)percentage and absolute [...] In Lab Deja SANDRA HEMATOLOGY ORDERABLE S [facility] [place] [address] * (ABNORMAL) Hemogram (06/09/2021 3:37 AM EDT) Pathologist [facility] WBC 7.9 4.0 - 9.5 x10(3)/[facility] RBC 4.88 4.00 - 5.21 x10(6)/[facility] Hemoglobin 15.2 11.7 - 15.5 g/dL [facility] Hematocrit 46.5(H) 35.7 - 45.8 % [facility] MCV 95.3(H) 82.6 - 94.4 [facility] MCH 31.1 27.1 - 32.0 pg [facility] MCHC 32.7 31.7 - 35.0 g/dL [facility] Platelets 334 145 - 357 x10(3)/[facility] RDWSD 49.2(H) 37.0 - [address] [facility] RDWCV 14.5(H) 11.5 - 14.1 % [facility] MPV 10.2 7.6 - 12.9 [facility] nRBC % Auto 0.0 % [facility] nRBC Abs Auto 0.000 0.000 - 0.000 x10(3)/[facility] Blood 06/09/2021 3:37 AM EDT 06/09/2021 3:58 AM EDT Narrative Resulting Agency Comment Spec In Lab Deja SANDRA HEMATOLOGY ORDERABLE S [facility] [place] [address] * (ABNORMAL) BMP w/fasting Glucose (06/09/2021 3:37 AM EDT) Glucose Fasting 103(H) 65 - 99 mg/dL [facility] Comment: ?Fasting* Glucose Interpretive Criteria [...] of Diabetes Mellitus, Position Statement from the [place] [employer]. ??Diabetes Care, Volume 33, Supplement 1, Mar 2009 BUN 23(H) 8 - 18 mg/dL [facility] Creatinine 0.86 0.70 - 1.20 mg/dL [facility] Sodium 137 135 - 145 mmol/L [facility] Potassium 4.1 3.5 - 5.0 mmol/L [facility] Comment: Please note: ??Patients with WBC >100,000 may have falsely elevated Potassium levels. ??For accurate Potassium quantification in these patients send serum separator tube (gold top) for subsequent determinations. ??Contact the Clinical Chemistry Laboratory if there are any questions. Chloride 102 98 - 107 mmol/L [facility] CO2 22 22 - 31 mmol/L [facility] Anion Gap 13 5 - 15 mmol/L [facility] Calcium 9.3 8.5 - 10.5 mg/dL [facility] Estimated GFR 78 >=60 mL/min/1. 73 m?? [facility] Comment: This patient? s estimated [...] Hallman MD CHEMISTRY ORDERABLES Performing Organization Address [facility] Co de Phone Number [facility] [place] [address] * Heparin (unfractionated) Level (06/08/2021 4:07 PM EDT) Heparin UFH Level <0.04 IU/mL [facility] Comment: Heparin (anti-Xa) levels should [...] MD HEMATOLOGY ORDERABLE S Performing Organization Address [facility] Co de Phone Number [facility] [place] [address] * XR Chest PA & Lateral (Generic) [...] have questions please contact the health rn palliative care that requested 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 ? Electronically signed by: Magda Machado MD, [facility] ([phone]), at 06/08/2021 6:00 PM Narrative 06/08/2021 6:00 PM EDT EXAMINATION: XR [...] who have questions please contactthe health rn palliative care that requested 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 Electronically signed by: Magda Machado MD, [facility] ([phone]), at 06/08/2021 6:00 PM Mario Hallman MD [...] have questions please contact the health rn palliative care that requested 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 ? Electronically signed by: Kiran Cantor MD, [facility] ([phone]), at 06/08/2021 2:35 PM Narrative 06/08/2021 2:35 PM EDT EXAMINATION: MRI [...] who have questions please contactthe health rn palliative care that requested 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 Electronically signed by: Kiran Cantor MD, [facility]([phone]), at 06/08/2021 2:35 PM Mario Hallman MD IMG MRI ORDERABLES * (ABNORMAL) CRP, acute inflammation (06/08/2021 11:58 AM EDT) Pathologist [facility] CRP 28.1(H) <=4.9 mg/L [facility] Blood 06/08/2021 11:5 8 AM EDT 06/08/2021 12:04 PM EDT Narrative Resulting Agency Comment Spec In Lab Mario Hallman MD CHEMISTRY ORDERABLES Performing Organization Address City/[facility]/ZIP Co de Phone Number [facility] [place] [address] * CK (06/08/2021 11:58 AM EDT) Pathologist [facility] CK, Total 30 0 - 160 unit/L [facility] Blood 06/08/2021 11:5 8 AM EDT 06/08/2021 12:04 PM EDT Narrative Resulting Agency Comment Spec In Lab Mario Hallman MD CHEMISTRY ORDERABLES Performing Organization Address [facility]/ZIP Co de Phone Number [facility] [place] [address] * (ABNORMAL) Sedimentation rate (06/08/2021 11:58 AM EDT) Pathologist [facility] Sed Rate 53(H) 2 - 39 mm/hr [facility] Comment: Effective February 15, 2019 new capillary photometric technology has resulted in a change in reference ranges. It is recommended that each ESR result be reviewed with its own age appropriate reference range. Blood 06/08/2021 11:5 8 AM EDT 06/08/2021 12:04 PM EDT Narrative Resulting Agency Comment Spec In Lab Mario Hallman MD HEMATOLOGY ORDERABLE S Performing Organization Address [facility] Co de Phone Number [facility] [place] [address] * Heparin (unfractionated) Level (06/08/2021 11:58 AM EDT) Heparin UFH Level 0.77 IU/mL [facility] Comment: Heparin (anti-Xa) levels should [...] MD HEMATOLOGY ORDERABLE S Performing Organization Address [facility]/ZIP Co de Phone Number [facility] [place] [address] * urine, qualitative ([place]/[facility]P/NLH) (06/08/2021 11:51 AM EDT) Spec [place] UA 1.010 1.006 - 1.030 [facility] HCG Qual Negative [facility] Comment: Dilute urine samples can result in a false negative test. Repeat testing on a first morning sample or a plasma quantitative hCG measurement is recommended. Urine 06/08/2021 11:5 1 AM EDT 06/08/2021 12:32 PM EDT Narrative Resulting Agency Comment Spec In Lab Mario Hallman MD URINE ORDERABLES Performing Organization Address [facility]/State/ZIP Co de Phone Number [facility] [place] [address] * ECHO COMPLETE W CONTRAST (06/08/2021 11:09 AM EDT) Anatomical Region Laterality Modality Other 06/08/2021 9:35 AM EDT Narrative 06/08/2021 12:42 PM EDT [facility] ?[address] ? [place] [address] ?Voice: ?Fax: ? Echocardiogram Report Name: LOIDA ROQUE ? Study Date: 06/08/2021 09:35 AMBP: 109/69 mmHg ? Patient Location: [facility]^432^A : 1970 ? Height: 163 cm ? Account: [id number] Age: 51 yrs ? Weight: 95 kg Gender: Female ?BSA: 2.0 m2 Ordering Physician: DONALD Referring Physician: AJ HARTMAN Performed By: Aaron Herr RDCS Reason For Study: NSTEMI (non-ST elevated myocardial infarction) Exam Location: [facility]. Interpretation Summary 1. Left ventricle is [...] significant change from prior in 08/2019. Procedure Complete-[id number]. Image enhancement Definity was used for left [...] Procedure Note Kai Haider MD - 06/08/2021 [place] [address] Voice: Fax: Echocardiogram Report Name: LOIDA ROQUE Study Date: 209:35 AMBP: 109/69 mmHg Patient Location:[place] [address]^A : 1970 Height: 163 cm Account: [id number] Age: 51 yrs Weight: 95 kg Gender: Female BSA: 2.0 m2 Ordering Physician: DONALD Referring Physician: AJ HARTMAN Performed By: Aaron Herr RDCS Reason For Study: NSTEMI (non-ST elevated myocardial infarction) Exam Location: [facility]. Interpretation Summary 1. Left ventricle is [...] significant change from prior in 08/2019. Procedure Complete-[id number]. Image enhancement Definity was used for left [...] EDT) Heparin UFH Level 1.20(Crit ical) IU/mL [facility] Comment: Critical Result called by [...] MD HEMATOLOGY ORDERABLE S Performing Organization Address City/[facility]/ZIP Co de Phone Number [facility] [place] [address] * (ABNORMAL) Differential, Automated (06/08/2021 4:41 AM EDT) Neutrophils % 71.8 % [facility] Neutr Abs (ANC) 8.09(H) 1.70 - 6.10 x10(3)/mc L [facility] Lymphocytes % 18.0 % [facility] Lymphocytes Abs 2.0 0.9 - 3.2 x10(3)/ L [facility] Monocytes % 5.7 % [facility] Monocyte Abs 0.6 0.3 - 0.9 x10(3)/ L [facility] Eosinophils % 3.5 % [facility] Eosinophils Abs 0.4 0.0 - 0.4 x10(3)/[facility] Basophils % 0.6 % [facility] Basophils Abs 0.1 0.0 - 0.1 x10(3)/[facility] Immature Gran % 0.40 % [facility] Comment: Immature granulocytes(IG's)percentage and absolute count will include metamyelocytes, myelocytes, and promyelocytes. Blood smears from CBCs yielding IG's will be scanned manually for concordance. If this scan disagrees with the automated IG or if promyelocytes are noted, a manual differential will be performed. Shonda Gran Abs 0.05(H) 0.00 - 0.04 x10(3)/ L [facility] Blood 06/08/2021 4:41 AM EDT 06/08/2021 5:11 AM EDT Narrative Resulting Agency Comment Spec In Lab Deja SANDRA HEMATOLOGY ORDERABLE S Performing Organization Address City/[facility]/ZIP Co de Phone Number [facility] [place] [address] * (ABNORMAL) Hemogram (06/08/2021 4:41 AM EDT) WBC 11.3(H) 4.0 - 9.5 x10(3)/[facility] RBC 4.64 4.00 - 5.21 x10(6)/[facility] Hemoglobin 13.9 11.7 - 15.5 g/dL [facility] Hematocrit 43.0 35.7 - 45.8 % [facility] MCV 92.7 82.6 - 94.4 [facility] MCH 30.0 27.1 - 32.0 pg [facility] MCHC 32.3 31.7 - 35.0 g/dL [facility] Platelets 312 145 - 357 x10(3)/[facility] RDWSD 47.4(H) 37.0 - 46.0 [facility] RDWCV 14.3(H) 11.5 - 14.1 % [facility] MPV 10.8 7.6 - 12.9 [facility] nRBC % Auto 0.0 % [facility] nRBC Abs Auto 0.000 0.000 - 0.000 x10(3)/[facility] Blood 06/08/2021 4:41 AM EDT 06/08/2021 5:11 AM EDT Narrative Resulting Agency Comment Spec In Lab Deja SANDRA HEMATOLOGY ORDERABLE S [facility] [place] [address] * (ABNORMAL) Heparin (unfractionated) Level (06/08/2021 4:41 AM EDT) Heparin UFH Level 1.06(Crit ical) IU/mL [facility] Comment: Critical Result called by [...] Lab Mario Hallman MD HEMATOLOGY ORDERABLE S [facility] [place] [address] * (ABNORMAL) BMP w/fasting Glucose (06/08/2021 4:41 AM EDT) Glucose Fasting 95 65 - 99 mg/dL [facility] Comment: ?Fasting* Glucose Interpretive Criteria [...] of Diabetes Mellitus, Position Statement from the [place] [employer]. ??Diabetes Care, Volume 33, Supplement 1, Mar 2009 BUN 21(H) 8 - 18 mg/dL [facility] Creatinine 0.87 0.70 - 1.20 mg/dL [facility] Sodium 138 135 - 145 mmol/L [facility] Potassium 4.1 3.5 - 5.0 mmol/L [facility] Comment: Please note: ??Patients with WBC >100,000 may have falsely elevated Potassium levels. ??For accurate Potassium quantification in these patients send serum separator tube (gold top) for subsequent determinations. ??Contact the Clinical Chemistry Laboratory if there are any questions. Chloride 103 98 - 107 mmol/L [facility] CO2 22 22 - 31 mmol/L [facility] Anion Gap 13 5 - 15 mmol/L [facility] Calcium 8.7 8.5 - 10.5 mg/dL [facility] Estimated GFR 77 >=60 mL/min/1. 73 m?? [facility] Comment: This patient? s estimated [...] In Lab Mario Hallman MD CHEMISTRY ORDERABLES [facility] [place] [address] * Troponin (06/08/2021 4:41 AM EDT) Troponin-T <0.01 0.00 - 0.00 ng/mL [facility] Comment: The 99th percentile for Troponin T is less than 0.01 ng/mL, any detectable cTnT concentration using this assay should be considered elevated. According to the third universal definition of myocardial infarction the following criteria with a clinical presentation consistent with acute myocardial ischemia meets the diagnosis for a myocardial infarction ([place]). Detection of a rise and/or fall of cTnT, with at least one value greater than the 99th percentile (> or = 0.01) and with at least one of the following ?? Symptoms of ischemia ?? New or presumed new significant XL-embevju-U wave (ST-T) changes or new left bundle [...] additional sample may be indicated. Reference: Third [place] Definition of Myocardial Infarction. Journal of the [place] [employer] 2012;60:1581-98 Blood 06/08/2021 4:41 AM EDT 06/08/2021 5:12 AM EDT Narrative Resulting Agency Comment Spec In Lab Mario Hallman MD CHEMISTRY ORDERABLES [facility] [place] [address] * Heparin (unfractionated) Level (06/07/2021 9:55 PM EDT) Heparin UFH Level 0.08 IU/mL [facility] Comment: Heparin (anti-Xa) levels should [...] Lab Mario Hallman MD HEMATOLOGY ORDERABLE S [facility] [place] [address] * (ABNORMAL) pro-Brain Natriuretic Peptide (06/07/2021 5:26 PM EDT) Pathologist [facility] ProBNP 2,701(H) <=124 pg/mL [facility] Blood Venous Draw / Unknown 06/07/2021 5:26 PM EDT 06/07/2021 5:44 PM EDT Narrative Resulting Agency Comment Spec In Lab Deja SANDRA CHEMISTRY ORDERABLES Performing Organization Address [facility]/ZIP Co de Phone Number [facility] [place] [address] * (ABNORMAL) Differential, Automated (06/07/2021 5:26 PM EDT) [facility] Neutrophils % 74.6 % [facility] Neutr Abs (ANC) 8.97(H) 1.70 - 6.10 x10(3)/mc L [facility] Lymphocytes % 15.9 % [facility] Lymphocytes Abs 1.9 0.9 - 3.2 x10(3)/mc L [facility] Monocytes % 6.0 % [facility] Monocyte Abs 0.7 0.3 - 0.9 x10(3)/mc L [facility] Eosinophils % 2.6 % [facility] Eosinophils Abs 0.3 0.0 - 0.4 x10(3)/[facility] Basophils % 0.5 % [facility] Basophils Abs 0.1 0.0 - 0.1 x10(3)/mc L [facility] Immature Gran % 0.40 % [facility] Comment: Immature granulocytes(IG's)percentage and absolute count will include metamyelocytes, myelocytes, and promyelocytes. Blood smears from CBCs yielding IG's will be scanned manually for concordance. If this scan disagrees with the automated IG or if promyelocytes are noted, a manual differential will be performed. Shonda Gran Abs 0.05(H) 0.00 - 0.04 x10(3)/mc L [facility] Blood 06/07/2021 5:26 PM EDT 06/07/2021 5:36 PM EDT Narrative Resulting Agency Comment Spec In Lab Deja SANDRA HEMATOLOGY ORDERABLE S Performing Organization Address City/State/[facility] Co de Phone Number [facility] [place] [address] * (ABNORMAL) Hemogram (06/07/2021 5:26 PM EDT) WBC 12.0(H) 4.0 - 9.5 x10(3)/[facility] RBC 4.72 4.00 - 5.21 x10(6)/[facility] Hemoglobin 14.5 11.7 - 15.5 g/dL [facility] Hematocrit 44.0 35.7 - 45.8 % [facility] MCV 93.2 82.6 - 94.4 fL [facility] MCH 30.7 27.1 - 32.0 pg [facility] MCHC 33.0 31.7 - 35.0 g/dL [facility] Platelets 346 145 - 357 x10(3)/[facility] RDWSD 47.2(H) 37.0 - 46.0 [facility] RDWCV 14.4(H) 11.5 - 14.1 % [facility] MPV 10.6 7.6 - 12.9 fL [facility] nRBC % Auto 0.0 % [facility] nRBC Abs Auto 0.000 0.000 - 0.000 x10(3)/mcL [facility] Blood 06/07/2021 5:26 PM EDT 06/07/2021 5:36 PM EDT Narrative Resulting Agency Comment Spec In Lab Deja SANDRA HEMATOLOGY ORDERABLE S [facility] [place] [address] * BMP w/fasting Glucose (06/07/2021 5:26 PM EDT) Glucose Fasting 90 65 - 99 mg/dL [facility] Comment: ?Fasting* Glucose Interpretive Criteria [...] of Diabetes Mellitus, Position Statement from the [place] [employer]. ??Diabetes Care, Volume 33, Supplement 1, Mar 2009 BUN 18 8 - 18 mg/dL [facility] Creatinine 1.07 0.70 - 1.20 mg/dL [facility] Sodium 137 135 - 145 mmol/L [facility] Potassium 4.3 3.5 - 5.0 mmol/L [facility] Comment: Please note: ??Patients with WBC >100,000 may have falsely elevated Potassium levels. ??For accurate Potassium quantification in these patients send serum separator tube (gold top) for subsequent determinations. ??Contact the Clinical Chemistry Laboratory if there are any questions. Chloride 101 98 - 107 mmol/L [facility] CO2 24 22 - 31 mmol/L [facility] Anion Gap 12 5 - 15 mmol/L [facility] Calcium 9.1 8.5 - 10.5 mg/dL [facility] Estimated GFR 60 >=60 mL/min/1. 73 m?? [facility] Comment: This patient? s estimated [...] Resulting Agency Comment Spec In Lab Mario Hallamn MD CHEMISTRY ORDERABLES Performing Organization Address [facility]/ZIP Co de Phone Number [facility] [place] [address] * T3 Total (06/07/2021 5:26 PM EDT) T3, Total 134 80 - 200 ng/dL [facility] Blood 06/07/2021 5:26 PM EDT 06/07/2021 5:36 PM EDT Narrative Resulting Agency Comment Spec In Lab Mario Hallman MD CHEMISTRY ORDERABLES Performing Organization Address [facility]/ZIP Co de Phone Number [facility] [place] [address] * T4 Total (06/07/2021 5:26 PM EDT) T4, total 6.8 5.3 - 11.6 mcg/dL [facility] Comment: Reference Interval (mcg/dL): Females: ??First Trimester: 6.3-13.5 ??Second Trimester: 7.1-14.3 ??Third Trimester: 6.9-14.1 Blood 06/07/2021 5:26 PM EDT 06/07/2021 5:36 PM EDT Narrative Resulting Agency Comment Spec In Lab Mario Hallman MD CHEMISTRY ORDERABLES [facility] [place] [address] * (ABNORMAL) TSH (06/07/2021 5:26 PM EDT) TSH 5.83(H) 0.27 - 4.20 mcIU/mL [facility] Comment: Reference Interval (mcIU/mL): Females: ??First Trimester: 0.23-3.88 ??Second Trimester: 0.22-3.90 ??Third Trimester: 0.44-4.66 Blood 06/07/2021 5:26 PM EDT 06/07/2021 5:36 PM EDT Narrative Resulting Agency Comment Spec In Lab Mario Hallman MD CHEMISTRY ORDERABLES Performing Organization Address City/[facility]/ZIP Co de Phone Number [facility] [place] [address] * Lipase (06/07/2021 5:26 PM EDT) Lipase 18 0 - 60 unit/L [facility] Blood 06/07/2021 5:26 PM EDT 06/07/2021 5:36 PM EDT Narrative Resulting Agency Comment Spec In Lab Mario Hallman MD CHEMISTRY ORDERABLES [facility] [place] [address] * Amylase (06/07/2021 5:26 PM EDT) Amylase 39 28 - 100 unit/L [facility] Blood 06/07/2021 5:26 PM EDT 06/07/2021 5:36 PM EDT Narrative Resulting Agency Comment Spec In Lab Mario Hallman MD CHEMISTRY ORDERABLES [facility] [place] [address] * Lipid Panel (Reflex Direct LDL) (06/07/2021 5:26 PM EDT) Chol, Total 164 mg/dL [facility] Comment: Lower Risk: <200 mg/dL Average Risk: 200-239 mg/dL Higher Risk: >aw=412 mg/dL Triglycerides 144 mg/dL [facility] Comment: Average Risk/Lower Risk: <150 mg/dL Borderline High Risk: 150-199 mg/dL High Risk: 200-499 mg/dL Very High Risk: >wl=364 mg/dL HDL 44 mg/dL [facility] Comment: Males: ?? Higher Risk: <40 mg/dL Females: ?? Higher Risk: <50 mg/dL LDL Cholesterol 91 mg/dL [facility] Comment: Lowest Risk: <100 mg/dL Lower Risk: 100-129 mg/dL Borderline High Risk: 130-159 mg/dL High Risk: 160-189 mg/dL Very High Risk: >yq=874 mg/dL Chol/HDL Ratio 3.7 ratio [facility] Lipid Interpretation See Note [facility] Comment: Lipid management should be guided by a patient? s ASCVD risk, goals and preferences. ACC/AHA Guidelines recommend high intensity statin if clinical ASCVD or LDL greater than or equal to 190 mg/dL. http://Catawikiurl.com/BWT-YXF-Txgyzlygx Adults aged 40-75 with LDL 70-189 mg/dL should have their 10 year ASCVD risk estimated with the ACC/AHA ASCVD risk construction cost estimator http://tools.acc.org/IAXTO-Espl-Nysryxakv/ Statin should be discussed if risk greater [...] Hallman MD CHEMISTRY ORDERABLES Performing Organization Address [facility] Co de Phone Number [facility] [place] [address] * CK (06/07/2021 5:26 PM EDT) CK, Total 33 0 - 160 unit/L [facility] Blood 06/07/2021 5:26 PM EDT 06/07/2021 5:36 PM EDT Narrative Resulting Agency Comment Spec In Lab Mario Hallman MD CHEMISTRY ORDERABLES Performing Organization Address [facility] de Phone Number [facility] [place] [address] * Hemoglobin A1c (06/07/2021 5:04 PM EDT) Hemoglobin A1C 5.6 4.3 - 5.6 % [facility] Comment: Reference Range: 4.3 - [...] 1, S67-74 Est Avg Gluc 114 mg/dL [facility] Comment: eAG equivalents for [...] into estimated average glucose values. ??Diabetes Care 2008:31(8):6349-7722. Blood 06/07/2021 5:04 PM EDT 06/07/2021 5:36 PM EDT Narrative Resulting Agency Comment Spec In Lab Mario Hallman MD CHEMISTRY ORDERABLES [facility] [place] [address] * Troponin (06/07/2021 5:04 PM EDT) Troponin-T <0.01 0.00 - 0.00 ng/mL [facility] Comment: The 99th percentile for Troponin T is less than 0.01 ng/mL, any detectable cTnT concentration using this assay should be considered elevated. According to the third universal definition of myocardial infarction the following criteria with a clinical presentation consistent with acute myocardial ischemia meets the diagnosis for a myocardial infarction ([place]). Detection of a rise and/or fall of cTnT, with at least one value greater than the 99th percentile (> or = 0.01) and with at least one of the following ?? Symptoms of ischemia ?? New or presumed new significant IL-ifwzuok-H wave (ST-T) changes or new left bundle [...] additional sample may be indicated. Reference: Third [place] Definition of Myocardial Infarction. Journal of the [place] [employer] 2012;60:1581-98 Blood 06/07/2021 5:04 PM EDT 06/07/2021 5:36 PM EDT Narrative Resulting Agency Comment Spec In Lab Mario Hallman MD CHEMISTRY ORDERABLES Performing Organization Address [facility] Co de Phone Number [facility] [place] [address] * EKG 12 Lead (06/07/2021 4:33 PM EDT) Ventricular rate 54 BPM MUSE SYSTEM Atrial Rate 54 BPM MUSE SYSTEM P-R Interval 166 ms MUSE SYSTEM QRS Duration 86 ms MUSE SYSTEM Q-T Interval 514 ms MUSE SYSTEM QTC Calculated (Bezet) 487 ms MUSE SYSTEM Calculated P Chapp[place] 30 degrees MUSE SYSTEM Calculated R [place] 22 degrees MUSE SYSTEM Calculated T [place] 18 degrees MUSE SYSTEM INTERPRETATION Sinus bradycardia Left atrial enlargement Cannot rule out Lateral infarct , age undetermined Abnormal ECG When compared with ECG of 31-AUG-2019 07:05, No significant change was found Confirmed by MD Dalia, Willy Huerta ([id number]) on 06/09/2021 4:36:27 PM MUSE SYSTEM 06/07/2021 4:33 PM EDT 06/09/2021 4:36 PM EDT Mario Hallman MD ECG ORDERABLES Performing Organization Address [facility] Co de Phone Number MUSE SYSTEM [...] using the Simplexa COVID-19 Direct Assay by [employer] as authorized by the FDA issued Emergency [...] Department of Pathology and Laboratory Medicine at [facility], certified under the Clinical Laboratory Improvement [...] fact sheets at the following FDA website: https://www.fda.gov/medical-devices/fjldpzdaqaa-fewsgxp-4212-pduhh-56-lfwhuuzbm- use-a xbfyzndbegzwa-xpzbnut-eihblbp/skyvv-bkksalfeony-palv SARS-CoV-2 Source BOX [employer]EMENTER Swab [facility] Nasopharyngeal Swab 06/08/19 4:30 PM EDT 06/07/2021 4:45 PM EDT Comment:Symptoms->Surveillan ce Narrative Resulting Agency Comment Spec In Lab Mario Hallman MD MICROBIOLOGY - GENER AL ORDERABLES Performing Organization Address City/State/[facility] Co de Phone Number [facility] [place] [address] documented in this encounter Visit Diagnoses Not [...] Inhalation, 2 TIMES DAILY, First dose on [facility] 06/07/21 at 2100, Until Discontinued, Routine Given 06/07/2021 8:25 PM EDT 2 Inhalati on clopidogreL (Plavix) tablet 75 mg 75 mg, Oral, DAILY, First dose on [place] 06/08/21 at 0900, Until Discontinued, Routine Given 06/08/2021 9:08 AM EDT [address] (Cymbalta) capsule 60 mg 60 mg, Oral, DAILY, First dose on [facility] 06/07/21 at 1845, Until Discontinued, Routine Given 06/08/2021 9:02 PM EDT 60 mg Given 06/07/2021 9:00 PM EDT 60 mg empagliflozin (Jardiance) Tab 10 mg 10 mg, Oral, DAILY, First dose on [place] 06/08/21 at 1545, Until Discontinued, Routine Given [...] 40 mg, Intravenous, ONCE, 1 dose, On [place] 06/08/21 at 1545 Given 06/08/2021 5:01 PM EDT 40 mg furosemide (Lasix) tablet 20 mg 20 mg, Oral, DAILY, First dose on [facility] 06/07/21 at 1845, Until Discontinued, Routine Given 06/09/2021 9:39 AM EDT 20 mg Given 06/08/2021 9:08 AM EDT 20 mg gabapentin (Neurontin) capsule 300 mg 300 mg, Oral, 2 TIMES DAILY, First dose on [facility] 06/07/21 at 2100, Until Discontinued, [...] area)0900 (Automatically Held - Provider: Admin Adt)0929 ([facility] Unhold - Provider: Admin Adt)0940 (Given - [...] she only takes this as needed.) 0853 ([facility] Hold - Provider: Admin Adt - Reason: Transfer to a Procedural area)0900 (Automatically Held - Provider: Admin Adt)0929 ([facility] Unhold - Provider: Admin Adt) furosemide (Lasix) [...] - Provider: Jo Ann Maldonado RN) 0853 ([facility] Hold - Provider: Admin Adt - Reason: Transfer to a Procedural area)0900 (Automatically Held - Provider: Admin Adt)0929 ([facility] Unhold - Provider: Admin Adt)0939 (Given - Provider: Jo Ann Maldonado RN) gabapentin (Neurontin) capsule 300 mg 300 mg, Oral, 2 TIMES DAILY, First dose on 06/07/21 at 2100, Until Discontinued, Routine 2026 (Given - Provider: Olive Anne RN) 0908 (Given - Provider: Jo Ann Maldonado RN)210 (Given - Provider: Colette Medina RN) 0853 ([facility] Hold - Provider: Admin [...] area)0900 (Automatically Held - Provider: Admin Adt)0929 ([facility] Unhold - Provider: Admin Adt)0939 (Given - [...] takes this as needed for allergies.) 0853 ([facility] Hold - Provider: Admin Adt - Reason: Transfer to a Procedural area)0900 (Not Given - Provider: Jo Ann Maldonado RN - Reason: Patient/family refused - Comment: only takes as needed)0929 ([facility] Unhold - Provider: Admin Adt) metoprolol tartrate [...] not met - Comment: HR 56) 0853 ([facility] Hold - Provider: Admin Adt - Reason: Transfer to a Procedural area)0900 (Not Given - Provider: Jo Ann Maldonado RN - Reason: Order parameters not met - Comment: HR 48)0929 ([facility] Unhold - Provider: Admin Adt) montelukast (Singulair) tablet 10 mg 10 mg, Oral, NIGHTLY, First dose on 06/07/21 at 2100, Until Discontinued 2025 (Given - Provider: Olive Anne RN) 2058 (Given - Provider: Colette Medina RN) 0853 ([facility] Hold - Provider: Admin Adt - Reason: Transfer to a Procedural area)0929 ([facility] Unhold - Provider: Admin Adt) rOPINIRole (Requip) tablet 1 mg 1 mg, Oral, NIGHTLY, First dose on 06/07/21 at 2099, Until Discontinued, Routine 2025 (Given - Provider: Olive Anne RN) 2058 (Given - Provider: Colette Medina RN) 0853 ([facility] Hold - Provider: Admin Adt - Reason: Transfer to a Procedural area)0929 ([facility] Unhold - Provider: Admin Adt) topiramate (Topamax) tablet 50 mg 50 mg, Oral, 2 TIMES DAILY, First dose on 06/07/21 at 2100, Until Discontinued, Routine 2024 (Given - Provider: Olive Anne RN) 100 (Given - Provider: Jo Ann Maldonado RN - Comment: awaiting medication from pharmacy)2110 (Given - Provider: Colette Medina RN) 0853 ([facility] Hold - Provider: Admin Adt - Reason: Transfer to a Procedural area)0929 ([facility] Unhold - Provider: Admin Adt)1254 (Given - Provider: Jo Ann Maldonado RN - Comment: awaiting medication from pharmacy) traZODone (Desyrel) tablet 100 mg 100 mg, Oral, NIGHTLY, First dose (after last reorder) on 06/07/21 at 2114, Until Discontinued, Routine 2099 (Given - Provider: Olive Anne RN) 2099 (Given - Provider: Colette Medina RN) 0853 ([facility] Hold - Provider: Admin Adt - Reason: Transfer to a Procedural area)0929 ([facility] Unhold - Provider: Admin Adt) Continuous Medication [...] Routine documented in this encounter Care Teams Core Rescuer Relationship Specialty Start Date End Date Polo Pearce PA [address] [place] [address] PCP - General Internal Medicine 06/09/21 documented as of this encounter
--- OUTSIDE RECORDS SUMMARY | 2023-09-20 18:39 | XMS_ITS | Encounter Summary ---
[place] [address] Care Team Providers Care Toilet Products Molder Name Role Phone Tim Rogers DNP Primary Care Provider Encounter Details Date Type Department Care Team (Late st Contact Info) Description 05/28/2021 [place] [phone] Beryl Grider Social History Tobacco Use Types [...] AM EDT Tech Visit Vascular Lab [place] [address] Jose Cook 10/08/2023 9:30 AM EDT Office Visit Vascular Surgery at [address] MD [facility] [place] [address] 10/21/2023 10:30 AM EDT Appointment Nuclear Medicine at [address]1000 Mary Reyes [facility] [address] 10/21/2023 11:30 AM EDT Appointment Nuclear Medicine at [place] [phone] Mary Reyes [facility] [address] 10/21/2023 12:30 PM EDT Appointment Nuclear Medicine at [place] [phone] Mary Reyes [facility] [address] 10/21/2023 1:30 PM EDT Appointment Nuclear Medicine at [place] [phone] Mary Reyes [facility] [place] [address] 10/21/2023 2:30 PM EDT Appointment Nuclear Medicine at [place] [phone] Mary Reyes [facility] [place] [address] 10/26/2023 4:00 PM EDT Office Visit Cardiology at [address] [phone] Jaspreet Kinsey MD [facility] [place] [address] 10/28/2023 9:00 AM EDT Office [place] [address] 10/29/2023 10:00 AM EDT Clinical [place] [address] 10/29/2023 10:15 AM EDT Procedure [place] [address] 11/01/2023 5:00 PM EDT Office [place] [phone] Selene Browning, PhD [facility] [place] [address] 11/22/2023 4:40 PM EDT Office Visit Cardiology at [address] [phone] Porsha Mcdaniels MD [facility] [place] [address] 12/13/2023 10:00 AM EDT Clinical Support [place] [phone] [facility] [place] [address] documented as of this encounter Visit Diagnoses Not on filedocumented in this encounter Care Teams Toilet Products Molder Relationship Specialty Start Date End Date Tim Rogers DNP PCP - General Family Medicine 08/28/19 06/08/21 documented as of this encounter
--- OUTSIDE RECORDS SUMMARY | 2023-09-20 18:40 | XMS_ITS | Encounter Summary ---
Author Organization [facility] [place] [address] Care Team Providers Care Landing Signal Officer Name Role Phone Tim Rogers DNP Primary Care Provider Encounter Details Date Type Department Care Team (Late st Contact Info) Description 05/06/2020 Telephone [place] [phone] Virginia Marc Social History Tobacco Use Types [...] AM EDT Tech [place] [address] Jose Cook 10/08/2023 9:30 AM EDT Office Visit [place] [phone] MD [facility] [place] [address] 10/21/2023 10:30 AM EDT Appoint[place] [address] Mary Reyes [facility] [address] 10/21/2023 11:30 AM EDT Appoint[place] [address] Mary Reyes [facility] [address] 10/21/2023 12:30 PM EDT Appointment [place] [address] Mary Reyes [facility] [address] 10/21/2023 1:30 PM EDT Appoint[place] [address] Mary Reyes [facility] [address] 10/21/2023 2:30 PM EDT Appointment [place] [address] Mary Reyes [facility] [place] [address] 10/26/2023 4:00 PM EDT Office Visit Cardiology at [address] [phone] Jaspreet Kinsey MD [facility] [place] [address] 10/28/2023 9:00 AM EDT Office Visit [place] [address] 10/29/2023 10:00 AM EDT Clinical Support [place] [address] 10/29/2023 10:15 AM EDT Procedure visit [place] [address] 11/01/2023 5:00 PM EDT Office Visit [place] [address] Selene Browning, PhD [facility] [place] [address] 11/22/2023 4:40 PM EDT Office Visit Cardiology at [address] [address] Porsha Mcdaniels MD [facility] [place] [place] [address] 12/13/2023 10:00 AM EDT Clinical Support [place] [address] Lucero Romero, AL[place] [facility] [place] [address] documented as of this encounter Visit Diagnoses Not on filedocumented in this encounter Care Teams Landing Signal Officer Relationship Specialty Start Date End Date Tim Rogers DNP PCP - General Family Medicine 08/28/19 06/08/21 documented as of this encounter
--- OUTSIDE RECORDS SUMMARY | 2023-09-20 18:40 | XMS_ITS | Encounter Summary ---
Author Organization [facility] [place] [address] Care Team Providers Care Procedure Analyst Name Role Phone Tim Rogers DNP Primary Care Provider +[phone] Reason for Visit * - Closed Specialty Diagnoses / Procedures Referred By Jayant harris Referred To Contact Procedures Film Library- Storage Only CT Chest Tim Rogers DNP [address] [place] [address] Referral ID Status Reason Start Date Expiration Date Visits Re quested Visits Authorized [id number] Closed 08/02/2020 08/02/2021 1 1 Encounter Details Date Type Department Care Team (Late Contact Info) Description 04/26/2020 Ancillary Procedure [place] [address] Tim Rogers DNP [address] [place], [place] [address] Social History Tobacco Use Types Packs/Day Years [...] AM EDT Tech Visit Vascular Lab at [place] [phone] Jose Cook 10/08/2023 9:30 AM EDT Office Visit Vascular Surgery at [place] [phone] MD [facility] [place] [address] 10/21/2023 10:30 AM EDT Appointment Nuclear Medicine at [address]1000 Mary Reyes [facility] [place] [address] 10/21/2023 11:30 AM EDT Appointment Nuclear Medicine at [place] [phone] Mary Reyes [facility] [place] [address] 10/21/2023 12:30 PM EDT Appointment [place] [address]-1000 Mary Reyes [facility] [place] [address] 10/21/2023 1:30 PM EDT Appointment [place] [phone] Mary Reyes [facility] [place] [address] 10/21/2023 2:30 PM EDT Appointment Nuclear [place] [phone] Mary Reyes APRN [facility] [place] [address] 10/26/2023 4:00 PM EDT Office Visit Cardiology at [address] [phone] Jaspreet Kinsey MD [facility] [place] [address] 10/28/2023 9:00 AM EDT Office Visit [place] [address] 10/29/2023 10:00 AM EDT Clinical Support [place] [address] 10/29/2023 10:15 AM EDT Procedure visit [place] [address] 11/01/2023 5:00 PM EDT Office Visit Gastroenterology at [address]1000 Selene Browning, PhD [facility] [place] [address] 11/22/2023 4:40 PM EDT Office [place] [address] Porsha Mcdaniels MD [facility] [place] [address] 12/13/2023 10:00 AM EDT Clinical Support Gastroenterology at [place] [phone] [facility] [place] [address] documented as of this encounter Procedures Procedure Name Priority Date/Time Associated Diagnosis Comments FILM LIBRARY STORAGE ONLY CT CHEST Routine 04/26/2020 12:00 AM EST documented in this encounter Results * Film Library- Storage Only CT Chest (04/26/2020 12:00 AM EST) Narrative [facility] - 08/02/2020 9:42 AM EDT This exam is auto-finalizing. It's purpose is for storage only. Tim Rogers DNP [facility] FILM LIBRARY OR DERABLES Performing Organization Address City/State/[facility] Co de Phone Number [place], [place] documented in this encounter Visit Diagnoses Not on filedocumented in this encounter Care Teams Procedure Analyst Relationship Specialty Start Date End Date Tim Rogers DNP PCP - General Family Medicine 08/28/19 06/08/21 documented as of this encounter
--- OUTSIDE RECORDS SUMMARY | 2023-09-20 18:40 | XMS_ITS | Encounter Summary ---
[place] [address] Care Team Providers Care Wet Crown Blocking Operator Name Role Phone Tim Rogers DNP Primary Care Provider [phone] Reason for Visit * Reason Onset Date Comments Appointment 09/12/2020 Follow up Encounter Details Date Type Department Care Team (Late st Contact Info) Description 09/12/2020 Telephone [place] [phone] Renetta Graham RN Appointment (Follow up) Social [...] AM EDT Tech [place] [address] Jose Cook 10/08/2023 9:30 AM EDT Office Visit [place] [phone] MD [facility] [place] [address] 10/21/2023 10:30 AM EDT Appointment [place] [address] Mary Reyes [facility] [address] 10/21/2023 11:30 AM EDT Appointment [place] [address] Mary Reyes APRN [facility] [place] [address] 10/21/2023 12:30 PM EDT Appointment [place] [address] Calvino, Mary M, [facility] [place] [address] 10/21/2023 1:30 PM EDT Appointment [place] [address] Mary Reyes [facility] [place] [address] 10/21/2023 2:30 PM EDT Appointment [place] [address] Mary Reyes [facility] [place] [address] 10/26/2023 4:00 PM EDT Office Visit Cardiology at [address] [phone] Jaspreet Kinsey MD [facility] [place] [address] 10/28/2023 9:00 AM EDT Office [place] [address] 10/29/2023 10:00 AM EDT Clinical Support [place] [address] 10/29/2023 10:15 AM EDT Procedure [place] [address] 11/01/2023 5:00 PM EDT Office Visit [place] [phone] Selene Browning, PhD [facility] [place] [address] 11/22/2023 4:40 PM EDT Office Visit Cardiology at [address] [address] Porsha Mcdaniels MD [facility] [place] [address] 12/13/2023 10:00 AM EDT Clinical Support [place] [address] [facility] [place] [address] documented as of this encounter Visit Diagnoses Not on filedocumented in this encounter Care Teams Wet Crown Blocking Operator Relationship Specialty Start Date End Date Tim Rogers DNP PCP - General Family Medicine 08/28/19 06/08/21 documented as of this encounter
--- OUTSIDE RECORDS SUMMARY | 2023-09-20 18:40 | XMS_ITS | Encounter Summary ---
Author Organization [facility] [place] [address] Care Team Providers Care Fibreglass Lay Up Worker Name Role Phone Tim Rogers DNP Primary Care Provider [phone] Encounter Details Date Type Department Care Team (Late st Contact Info) Description 08/02/2020 Telephone [place] [address]-1000 Olive Frazier Social History Tobacco Use Types [...] AM EDT Tech [place] [address] Jose Cook 10/08/2023 9:30 AM EDT Office Visit [place] [address] MD [facility] [place] [address] 10/21/2023 10:30 AM EDT Appointment [place] [address] Mary Reyes [facility] [place] [address] 10/21/2023 11:30 AM EDT Appointment Nuclear Medicine at [address]1000 Mary Reyes, [facility] [place] [address] 10/21/2023 12:30 PM EDT Appointment Nuclear Medicine at [place] [phone] Mary Reyes [facility] [place] [address] 10/21/2023 1:30 PM EDT Appointment [place] [address] Mary Reyes [facility] [place] [address] 10/21/2023 2:30 PM EDT Appointment [place] [address] Mary Reyes [facility] [place] [address] 10/26/2023 4:00 PM EDT Office Visit Cardiology at [address] [phone] Jaspreet Kinsey MD [facility] [place] [address] 10/28/2023 9:00 AM EDT Office [place] [address] 10/29/2023 10:00 AM EDT Clinical [place] [address] 10/29/2023 10:15 AM EDT Procedure [place] [address] 11/01/2023 5:00 PM EDT Office Visit [place] [address] Selene Browning, PhD [facility] [place] [address] 11/22/2023 4:40 PM EDT Office Visit Cardiology at [address] [phone] Porsha Mcdaniels MD [facility] [place] [address] 12/13/2023 10:00 AM EDT Clinical Support [place] [address]-1000 Lucero Romero, [place] [facility] [place] [address] documented as of this encounter Visit Diagnoses Not on filedocumented in this encounter Care Teams Fibreglass Lay Up Worker Relationship Specialty Start Date End Date Tim Rogers DNP PCP - General Family Medicine 08/28/19 06/08/21 documented as of this encounter
--- OUTSIDE RECORDS SUMMARY | 2023-09-20 18:40 | XMS_ITS | Encounter Summary ---
Author Organization [facility] [place] [address] Care Team Providers Care Roof Plumber Name Role Phone Tim Rogers DNP Primary Care Provider [phone] Encounter Details Date Type Department Care Team (Late st Contact Info) Description 09/09/2020 Telephone [place] [address] Beto Miller MD [facility] [place] [address] Social History Tobacco Use Types Packs/Day Years [...] ?? I reviewed CT scans performed in [facility] in 2019 (w/contrast) and April 2020 [...] the 2020 CT given the motion artifacts. [employer] images are below Combination of eosinophilia, adenopathy, [...] Diff) Please fax results to Dr Miller [phone] Standing Status: Future Standing Expiration Date: 03/11/2021 ??? Basic Metabolic Panel (non-fasting) Please fax results to Dr Miller [phone] Standing Status: Future Standing Expiration Date: 03/11/2021 ??? KATHRINE ([facility]/CGP/APD/NLH) Please fax results to Dr Miller [phone] Standing Status: Future Standing Expiration Date: 03/11/2021 ??? Extractable Nuclear Antigen (JENNA) Ab Please fax results to Dr Miller [phone] Standing Status: Future Standing Expiration Date: 03/11/2021 ??? Angiotensin Converting Enzyme Please fax results to Dr Miller [phone] Standing Status: Future Standing Expiration Date: 03/11/2021 ??? CRP, acute inflammation Please fax results to Dr Miller [phone] Standing Status: Future Standing Expiration Date: 03/11/2021 ??? Cytoplasmic Neutrophilic Ab Please fax results to Dr Miller [phone] Standing Status: Future Standing Expiration Date: 09/09/2021 ??? Myeloperoxidase Ab Please fax results to Dr Miller [phone] Standing Status: Future Standing Expiration Date: 09/09/2021 ??? Proteinase-3 Antibody Please fax results to Dr Miller [phone] Standing Status: Future Standing Expiration Date: 09/09/2021 ??? Immunoglobulin E (IgE) Please fax results to Dr Miller [phone] Standing Status: Future Standing Expiration Date: 09/09/2021 ??? Immunoglobulins, Quantitative Standing Status: Future Standing Expiration Date: 09/09/2021 documented in this encounter Plan of Treatment Upcoming Encounters Date Type Department Care Team (Late st Contact Info) Description 10/08/2023 8:30 AM EDT Tech [place] [address] Jose Cook 10/08/2023 9:30 AM EDT Office Visit [place] [phone] [facility] [place] [address] 10/21/2023 10:30 AM EDT Appointment [place] [address] Mary Reyes [facility] [place] [address] 10/21/2023 11:30 AM EDT Appointment Nuclear Medicine at [place] [phone] Mary Reyes [facility] [place] [place] [address] 10/21/2023 12:30 PM EDT Appointment [place] [address] Mary Reyes [facility] [place] [place] [address] 10/21/2023 1:30 PM EDT Appointment [place] [address] Mary Reyes [facility] [place] [place] [address] 10/21/2023 2:30 PM EDT Appointment [place] [address] Mary Reyes [facility] [place] [place] [address] 10/26/2023 4:00 PM EDT Office Visit Cardiology at [address] [phone] Jaspreet Kinsey MD [facility] [place] [address] 10/28/2023 9:00 AM EDT Office [place] [address] 10/29/2023 10:00 AM EDT Clinical [place] [address] 10/29/2023 10:15 AM EDT Procedure [place] [address] 11/01/2023 5:00 PM EDT Office Visit Gastroenterology at [place] [phone] Selene Browning, PhD [facility] [place] [address] 11/22/2023 4:40 PM EDT Office Visit Cardiology at [address] [address] Porsha Mcdaniels MD [facility] [address] 12/13/2023 10:00 AM EDT Clinical Support [place] [address] Lucero Romero, RD [facility] [place] [address] documented as of this encounter Visit Diagnoses Diagnosis Acute recurrent sinusitis, unspecified location RAVI (dyspnea on exertion) Other dyspnea and respiratory abnormality Abnormal CT of the chest Nonspecific (abnormal) findings on radiological and other examination of other intrathoracic organs documented in this encounter Care Teams Roof Plumber Relationship Specialty Start Date End Date Tim Rogers DNP PCP - General Family Medicine 08/28/19 06/08/21 documented as of this encounter
--- OUTSIDE RECORDS SUMMARY | 2023-09-20 18:40 | XMS_ITS | Encounter Summary ---
Author Organization [facility] [place] [address] Care Team Providers Care Buoy Tender Name Role Phone Tim Rogers DNP Primary Care Provider [phone] Encounter Details Date Type Department Care Team (Latest Contact Info) Description 08/01/2020 11:42 AM EDT - 08/01/2020 11:59 PM EDT Hospital [place] [phone] Dyspnea, unspecified type Discharge Disposition: Home Social [...] as needed. fluticasone propionate (FLONASE) 50 mcg/actuation [place], Suspension 1 spray by Each Nare [...] AM EDT Tech [place] [address] Jose Cook 10/08/2023 9:30 AM EDT Office [place] [address] MD [facility] [place] [address] 10/21/2023 10:30 AM EDT Appointment Nuclear Medicine at [place] [address] Mary Reyes, [facility] [place] [address] 10/21/2023 11:30 AM EDT Appointment Nuclear Medicine at [address]1000 Mary Reyes, [facility] [place] [address] 10/21/2023 12:30 PM EDT Appointment Nuclear Medicine at [place] [phone] Mary Reyes [facility] [place] [address] 10/21/2023 1:30 PM EDT Appointment Nuclear Medicine at [place] [phone] Mary Reyes, [facility] [place] [address] 10/21/2023 2:30 PM EDT Appointment [place] [address] Mary Reyes [facility] [place] [address] 10/26/2023 4:00 PM EDT Office Visit Cardiology at [address] [phone] Jaspreet Kinsey MD [facility] [place] [address] 10/28/2023 9:00 AM EDT Office [place] [address] 10/29/2023 10:00 AM EDT Clinical [place] [address] 10/29/2023 10:15 AM EDT Procedure [place] [address] 11/01/2023 5:00 PM EDT Office [place] [phone] Selene Browning, PhD [facility] [place] [address] 11/22/2023 4:40 PM EDT Office Visit Cardiology at [address] [phone] Porsha Mcdaniels MD [facility] [place] [address] 12/13/2023 10:00 AM EDT Clinical [place] [phone] Lucero Romero, [place] [facility] [place] [address] documented as of this encounter Procedures Procedure [...] / FVC LLN 69 % COMPAS PFT ESY87-19 Actual Pre-BD 3.14 L/s COMPAS PFT RBA35-06 Pre-BD % of Predicted 116 % COMPAS PFT RJC38-40 Predicted 2.70 L/s COMPAS PFT GTG42-52 Pre-BD Z-Score 0.51 COMPAS PFT FVC Actual [...] PFT FEV1/FVC Post-BD Z-Score 1.94 COMPAS PFT UPM52-94 Actual Post-BD 4.26 L/s COMPAS PFT VAJ08-18 Post-BD % of Predicted 158 % COMPAS PFT ZJP57-34 Post-BD Z-Score 1.67 COMPAS PFT DLCO Hb [...] type documented in this encounter Care Teams Buoy Tender Relationship Specialty Start Date End Date Tim Rogers DNP PCP - General Family Medicine 08/28/19 06/08/21 documented as of this encounter
--- OUTSIDE RECORDS SUMMARY | 2023-09-20 18:40 | XMS_ITS | Encounter Summary ---
Author Organization [facility] [place] [address] Care Team Providers Care Clinical Transplant Coordinator Name Role Phone Tim Rogers DNP Primary Care Provider [phone] Encounter Details Date Type Department Care Team (Late st Contact Info) Description 10/21/2020 Telephone [place] [address] Beto Miller MD [facility] [place] [address] Social History Tobacco Use Types Packs/Day Years [...] 1: 79, normal SSA, SSB, Alcantar antibody, [employer] antibody, ANCA, MPO antibody, OH-3 antibody, serum RITCHIE, CBC, BMP and CRP [...] Question: Where will study be performed? Answer: [facility] Order Specific Question: Apply for 7 or 14 days? Answer: 14 Beto Miller MD documented in this encounter Plan of Treatment Upcoming Encounters Date Type Department Care Team (Late st Contact Info) Description 10/08/2023 8:30 AM EDT Tech [place] [phone] Jose Cook 10/08/2023 9:30 AM EDT Office Visit [place] [phone] MD [facility] [place] [address] 10/21/2023 10:30 AM EDT Appointment [place] [phone] Mary Reyes APRN [facility] [place] [address] 10/21/2023 11:30 AM EDT Appointment Nuclear Medicine at [place] [phone] Mary Reyes [facility] [place] [address] 10/21/2023 12:30 PM EDT Appointment [place] [address] Mary Reyes [facility] [place] [address] 10/21/2023 1:30 PM EDT Appointment [place] [address] Mary Reyes [facility] [place] [address] 10/21/2023 2:30 PM EDT Appointment [place] [address] Mary Reyes [facility] [place] [address] 10/26/2023 4:00 PM EDT Office Visit Cardiology at [address] [phone] Jaspreet Kinsey MD [facility] [place] [address] 10/28/2023 9:00 AM EDT Office [place] [address] 10/29/2023 10:00 AM EDT Clinical [place] [address] 10/29/2023 10:15 AM EDT Procedure [place] [address] 11/01/2023 5:00 PM EDT Office Visit Gastroenterology at [place] [phone] Selene Browning, PhD [facility] [place] [address] 11/22/2023 4:40 PM EDT Office Visit Cardiology at [place] [phone] Porsha Mcdaniels MD [facility] [place] [address] 12/13/2023 10:00 AM EDT Clinical Support [place] [phone] Lucero Romero, ALVA [facility] [place] [address] documented as of this encounter Visit Diagnoses Diagnosis Palpitations documented in this encounter Care Teams Clinical Transplant Coordinator Relationship Specialty Start Date End Date Tim Rogers DNP PCP - General Family Medicine 08/28/19 06/08/21 documented as of this encounter
--- OUTSIDE RECORDS SUMMARY | 2023-09-20 18:40 | XMS_ITS | Encounter Summary ---
Author Organization [place] [address] Care Team Providers Care Kapok And Cotton Machine Operator Name Role Phone Tim Rogers DNP Primary Care Provider [phone] Reason for Visit * Auth/Cert Specialty Diagnoses / Procedures Referred By Jayant harris Referred To Contact Diagnoses NSTEMI (non-ST elevated myocardial infarction) NSTEMI Procedures EMERGNECY IPI Referral ID Status Reason Start Date Expiration Date Visits Re quested Visits Authorized [id number] 1 1 Encounter Details Date Type Department Care Team (Latest Contact Info) Description 08/29/2019 2:38 PM EDT - 08/31/2019 6:24 PM EDT Hospital Encounter Intermediate [place] [phone] Manish Benitez MD [facility] [place] [address] Non-ST elevation myocardial infarction (NSTEMI); SOB (shortness [...] this encounter Discharge Summaries * Natalia Urbina, CLAM PICKER - 08/30/2019 5:18 PM EDT Images from the original note were not included. Discharge Summary Patient Name: Loida Roque Patient Age: 49 y.o. Language: Macanese Race: White Ethnicity: Not nor Admit date: [...] Topamax 50 mg daily Hospital Course: #NSTEMI Lodia Roque is a 49 y.o. female with a 2 month h/o progressive dyspnea on exertion with chest tightness that resolves with rest, in addition, an episode of severe chest pain overnight ~3 weeksago concerning for missed [place]. ??In the ED, her EKG was abnormal [...] follow-up visit please call one of the warehouse shipping associate on Wednesday-Wednesday between the hours of 8A- 5PM. Cardiology Clinic number @ [phone] If off hours contact the cardiac fellow on- call. Hospital Tool Or Die Drawing Checker can help you. Hospital phone number [phone] Return to work: In 1 week Drivin hours post catheterization Follow up Appointments: Doctor Where Phone # Date Time Bouchra Frias APRN [address] / [facility] [id number] 09/13/19 8:30 Discharge References/Attachments None Discussed with MD Natalia Lira APRN Pager [phone] 08/31/2019 documented in this encounter Discharge Instructions * Discharge Instructions* Natalia Urbina APRN - 08/31/2019 3:54 PM EDT Call your doctor if: Chest pain, dyspnea, pain or swelling in legs occurs. If you have non-emergent questions, prior to your follow-up visit please call one of the warehouse shipping associate on Wednesday-Wednesday between the hours of 8A- 5PM. Cardiology Clinic number @ [phone] If off hours contact the cardiac fellow on- call. Hospital Tool Or Die Drawing Checker can help you. Hospital phone number [phone] Return to work: In 1 week Drivin hours post catheterization Follow up Appointments: Doctor Where Phone # Date Time Bouchra Frias APRN [address] / [facility] [id number] 09/13/19 8:30 * Attachments The following attachments cannot be sent through Care Everywhere. * Cardiac Catheterization: Left (Macanese) documented in this encounter Medications at Time of Discharge Medication Sig Dispensed Refills Start Date End Date fluticasone propionate (FLONASE) 50 mcg/actuation [place], Suspension 1 spray by Each Nare [...] Spirometry Patient Loida Roque 49 y.o. 1970 [id number] Spirometry Spirometry performed successfully. Waiting for read [...] Pt wheeled out of the unit with APARTMENT LEASING SPECIALIST. * Leonardo Jolly - 08/31/2019 12:25 PM EDT Nutrition Services Note - Low Nutrition Acuity Loida Roque is a 49 y.o. female Reason for intervention: education [facility] + NA Nutrition Plan: Patient states that she follows a low sodium restriction a home. Educational Material Guidelines for a Heart Healthy Lifestyle provided. Continue current diet. Educational Material provided. Monitor weight. Encourage good oral intake. Support and encouragement provided. Nutrition will continue to monitor and follow up with patient as needed. Active Orders Diet Daily Healthy Menu Choices/Cardiac diet ([facility]-Diet) Frequency: Effective Now Number of Occurrences: Until [...] in the interim. Leonardo Marina Jolly Pager: [phone] * Manish Benitez MD - 08/31/2019 9:33 AM EDT Images from the original note were not included. 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 [facility] 08/29 Preliminary findings: Right dominant Normal coronary [...] overnight ~3 weeks ago concerning for missed [place]. ??In the ED, her EKG was abnormal with diffuse STTW abnormalities but unchanged from prior EKG in 200 7.?Troponin??I??positive at 0.25 (ULN 0.06). ??Vitals stable and patient asymptomatic at rest. ??DDimer positive at 1037 thus??CT-PE protocol??completed. ??No PE or acute aortic pathology. ??She is transferred for further work up of NSTEMI. ??EF 62% and no wall motions seen on echo. [facility] with normal cors and LVEDP 15. Will [...] Echo with EF 62% and no WMA [facility] with normal cors A1C 5.4% Bedside PFTs today ?? FULL CODE Discussed with Manish Benitez MD Natalia Urbina, ROM Pager [phone] 08/31/2019 Cardiology Attending Note I interviewed and examined the patient during comprehensive bedside rounds. I concur with the summary of interval events, active hospital-focused problem list and plan of care as described in the note below. I personally reviewed the medications, laboratory results, treatment decisions and updated the patient. Manish Benitez MD, FACP, FAC Section of Cardiovascular Medicine [facility] Regional Clinical Research Associateutilization reviewer [facility] This patient meets or has met medical [...] Progress Note Patient Name: Loida Roque Service: COMMANDER INTERNAL AFFAIRS / PA Responsible Attending: Manish Benitez MD [...] overnight ~3 weeks ago concerning for missed AZ. 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 fluticasone propionate (FLONASE) 50 mcg/actuation [place], Suspension 1 spray by Each Nare [...] overnight ~3 weeks ago concerning for missed AZ. In the ED, her EKG was abnormal with diffuse STTW abnormalities but unchanged from prior EKG in 2006. Troponin I positive at 0.25 (ULN 0.06). Vitals stable and patient asymptomatic at rest. DDimer positive [id number] thus CT-PE protocol completed. No PE or acute aortic pathology. She is transferred for furtherwork up of NSTEMI. Plan Echo and coronary angiography. TREATMENT PLAN: #NSTEMI Admit to cardiology Trend troponin - 1st negative at [facility] ProBNP 1242; Admit weight 207 lbs; Lasix [...] MD, FACP, FACC Section of Cardiovascular Medicine [facility] Regional Clinical Research Associateutilization reviewer [facility] This patient meets or has met medical [...] Primary care provider on file: Tim Rogers, CLAM PICKER [phone] Advance Directive on file and Code Status: Full Code Patient???s Functional Status: Independent w/o device Living Situation: lives with Boby Roque (Spouse) [phone] (M) at [address] [place] [address] Supports: Boby, Mother son and daughter Assessment: Patient with no apparent RNCM/SW needs at this time. No housing, transportation, insurance, resources concerns identified at this time. Supports in place to achieve a safe post-hospital transition. No identified barriers to accessing necessary care and/or follow-up after discharge. Plan: Patient to d/c to home when medically ready. palliative care specialist/Microwave Oven Assembler will continue to follow patient???s progress and remain available if situation changes for coordination of care, psychosocial support and/or discharge planning. Angela Loving RN * Brief Op Note - Jessee Malone MD - 08/30/2019 2:31 PM EDT Preliminary Cardiac Catheterization Procedure Note: Patient Name: Loida Roque : [id number] MR#: [id number] Case Date: 08/30/2019 Tool Or Die Drawing Checker: Surgeon(s) and Role: * Jessee Malone MD - Primary * Luis Tatum PA - Fellow Preoperative diagnosis: ?CAD Postoperative diagnosis: * CAD * Procedure(s) performed: [facility] Coronary angio Access: Right radial A time-out [...] for further details. JOCY Montaño 08/30/2019 Pager [phone] * Plan of Care - Efrain Verma [...] AM EDT Tech Visit [place] [phone] Jose Cook 10/08/2023 9:30 AM EDT Office [place] [phone] MD [facility] [address] 10/21/2023 10:30 AM EDT Appointment [place] [phone] [address] [facility] [place] [address] 10/21/2023 11:30 AM EDT Appointment Nuclear Medicine at [place] [phone] Mary Reyes [facility] [address] 10/21/2023 12:30 PM EDT Appointment [place] [address] Mary Reyes [facility] [address] 10/21/2023 1:30 PM EDT Appointment [place] [address] [address] Reyes [facility] [address] 10/21/2023 2:30 PM EDT Appointment [place] [address] Mary Reyes [facility] [place] [address] 10/26/2023 4:00 PM EDT Office Visit Cardiology at [address] [phone] Jaspreet Kinsey [place] [address] 10/28/2023 9:00 AM EDT Office [place] [address] 10/29/2023 10:00 AM EDT Clinical [place] [address] 10/29/2023 10:15 AM EDT Procedure [place] [address] 11/01/2023 5:00 PM EDT Office [place] [address] Selene Browning, PhD [facility] [place] [address] 11/22/2023 4:40 PM EDT Office Visit Cardiology at [address] [phone] Porsha Mcdaniels MD [facility] [place] [address] 12/13/2023 10:00 AM EDT Clinical Support [place] [address] Lucero Romero, [facility] [place] [address] documented as of this encounter Procedures Procedure [...] (FVC >70%) Zoe Morocho MD Natalia Urbina CLAM PICKER PFT ORDERABLES * EKG 12 Lead (08/31/2019 7:05 AM EDT) Ventricular rate 51 BPM MUSE SYSTEM Atrial Rate 51 BPM MUSE SYSTEM P-R Interval 186 ms MUSE SYSTEM QRS Duration 82 ms MUSE SYSTEM Q-T Interval 546 ms MUSE SYSTEM QTC Calculated (Bezet) 503 ms MUSE SYSTEM Calculated P [facility] 18 degrees MUSE SYSTEM Calculated R [facility] 52 degrees MUSE SYSTEM Calculated T [facility] 13 degrees MUSE SYSTEM INTERPRETATION Sinus bradycardia [...] 4:12 AM EDT) Neutrophils % 45.2 % [facility] Neutr Abs (ANC) 2.73 1.70 - 6.10 x10(3)/mc L [facility] Lymphocytes % 34.8 % [facility] Lymphocytes Abs 2.1 0.9 - 3.2 x10(3)/mc L [facility] Monocytes % 10.1 % [facility] Monocyte Abs 0.6 0.3 - 0.9 x10(3)/[facility] Eosinophils % 8.9 % [facility] Eosinophils Abs 0.5(H) 0.0 - 0.4 x10(3)/[facility] Basophils % 0.8 % [facility] Basophils Abs 0.0 0.0 - 0.1 x10(3)/[facility] Immature Gran % 0.20 % [facility] Comment: Immature granulocytes(IG's)percentage and absolute count will include metamyelocytes, myelocytes, and promyelocytes. Blood smears from CBCs yielding IG's will be scanned manually for concordance. If this scan disagrees with the automated IG or if promyelocytes are noted, a manual differential will be performed. Shonda Gran Abs 0.01 0.00 - 0.04 x10(3)/[facility] Blood specimen (specimen) 08/31/2019 4:12 AM EDT 08/31/2019 4:29 AM EDT Narrative Resulting Agency Comment Spec In Lab [place] SANDRA HEMATOLOGY ORDERABLE S [facility] [place] [address] * (ABNORMAL) Hemogram (08/31/2019 4:12 AM EDT) WBC 6.0 4.0 - 9.5 x10(3)/[facility] RBC 5.08 4.00 - 5.21 x10(6)/[facility] Hemoglobin 15.7(H) 11.7 - 15.5 gm/dL [facility] Hematocrit 47.0(H) 35.7 - 45.8 % [facility] MCV 92.5 82.6 - 94.4 fL [facility] MCH 30.9 27.1 - 32.0 pg [facility] MCHC 33.4 31.7 - 35.0 gm/dL [facility] Platelets 255 145 - 357 x10(3)/[facility] RDWSD 45.3 37.0 - 46.0 fL [facility] RDWCV 13.2 11.5 - 14.1 % [facility] MPV 11.4 7.6 - 12.9 fL [facility] nRBC % Auto 0.0 % [facility] nRBC Abs Auto 0.000 0.000 - 0.000 x10(3)/[facility] Blood specimen (specimen) 08/31/2019 4:12 AM EDT 08/31/2019 4:29 AM EDT Narrative Resulting Agency Comment Spec In Lab [place] SANDRA HEMATOLOGY ORDERABLE S Performing Organization Address [facility] Co de Phone Number [facility] [place] [address] * Magnesium (08/31/2019 4:12 AM EDT) Magnesium 0.92 0.69 - 1.07 mmol/L [facility] Blood specimen (specimen) 08/31/2019 4:12 AM EDT 08/31/2019 4:29 AM EDT Narrative Resulting Agency Comment Spec In Lab Manish Benitez MD CHEMISTRY ORDERABL ES Performing Organization Address [facility] Co de Phone Number [facility] [place] [address] * (ABNORMAL) BMP w/fasting Glucose (08/31/2019 4:12 AM EDT) Glucose Fasting 91 65 - 99 mg/dL [facility] Comment: ?Fasting* Glucose Interpretive Criteria [...] of Diabetes Mellitus, Position Statement from the [place] [employer]. ??Diabetes Care, Volume 33, Supplement 1, Mar 2009 BUN 21(H) 8 - 18 mg/dL [facility] Creatinine 0.91 0.70 - 1.20 mg/dL [facility] Sodium 136 135 - 145 mmol/L [facility] Potassium 4.2 3.5 - 5.0 mmol/L [facility] Comment: Please note: ??Patients with WBC >100,000 may have falsely elevated Potassium levels. ??For accurate Potassium quantification in these patients send serum separator tube (gold top) for subsequent determinations. ??Contact the Clinical Chemistry Laboratory if there are any questions. Chloride 105 98 - 107 mmol/L [facility] CO2 18(L) 22 - 31 mmol/L [facility] Anion Gap 13 5 - 15 mmol/L [facility] Calcium 9.4 8.5 - 10.5 mg/dL [facility] Estimated GFR 74 >=60 mL/min/1. 73 m?? [facility] Comment: The eGFR was calculated using the CKD-EPI equation. As with all creatinine based estimates of kidney function, eGFR values calculated with the CKD-EPI equation are not accurate in patients with acute kidney failure, extremes of body mass or the acutely ill. [email or web address] eGFR 85 >=60 mL/min/1. 73 m?? [facility] Comment: The eGFR was calculated using the CKD-EPI equation. As with all creatinine based estimates of kidney function, eGFR values calculated with the CKD-EPI equation are not accurate in patients with acute kidney failure, extremes of body mass or the acutely ill. [email or web address] Blood specimen (specimen) 08/31/2019 4:12 AM EDT 08/31/2019 4:29 AM EDT Narrative Resulting Agency Comment Spec In Lab Manish Benitez MD CHEMISTRY ORDERABL ES Performing Organization Address [facility]/ZIP Co de Phone Number [facility] [place] [address] * CARDIAC CATHETERIZATION (08/30/2019 2:40 PM EDT) Anatomical Region Laterality Modality Other Narrative 08/30/2019 2:59 PM EDT ?[facility] ? Cardiac Catheterization/Intervention Report ? Patient Name: Neisha, Loida ? Procedure Date: 08/30/2019 ? A #: [id number] ? Primary Physician: Kira, Jessee T ? Case #: [id number] ? File Name: [id number] ? Catheterization Order Number: [id number] ? [facility] ? Final Report [place], [place] ? Patient Name: ? Loida Neisha ? ID#: ?[id number] ? : ?1970 ? Procedure Date: ? [...] was Urgent. 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 The [facility] clinical frailtyscale is 2: Well. Diagnostic Tests: Prior Coronary Angiography: LV ejection fraction within 6 months is 65%. Medications Prior to Procedure: Aspirin. Indications for Diagnostic Cath: The priority of the diagnostic procedure was Urgent. 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 [id number] ?Sex: ?F ? Site Loc: ? [facility] ?Ht / Wt: ??163(cm)/94(kg) Pt. Loc: ?Adult Floor ? BSA: ?1.99 Study Date: ?? 08/30/2019 ?Pt. Type: Inpatient Tape: ? Referring: POOJA IYER J Reading: Jose Chambers ([id number]) Electrical Installer: Jaspreet Oneil [facility] Interpreting Fellow: Poncho Yates ([id number]) Diagnosis: *Non-ST elevation (NSTEMI) myocardial infarction (I21.4) [...] Vmax ?0.35 ? m/sec ? MV deceleration [id number] ?msec ? MV A-wave Vmax ?0.25 ? [...] ? Mid-Inferior ?Normal ? Mid-Inferoseptal ?Normal ? [place]-Septal ? Normal ? [place]-Anterior ? Normal ? [place]-Lateral ?Normal ? [place]-Inferior ? Normal ? [place]-Tip ?Normal ? This report has been electronically signed by: Jose Chambers MD ? 08/30/2019 14:21:57 Images reviewed and interpretation verified [facility] Cardiac Ultrasound Laboratory Procedure Note Jose Chambers MD - 08/30/2019 Procedure: Transthoracic Echocardiogram Patient: NEISHA VÁSQUEZ(Age): 1970(49y) Med Rec#: [id number] Sex: F Site Loc: [facility] Ht / Wt: 163(cm)/94(kg) Pt. Loc: Adult Floor BSA: 1.99 Study Date: 08/30/2019 Pt. Type: Inpatient Tape: Referring: POOJA IYER J Reading: Jose Chambers ([id number]) Electrical Installer: Jaspreet Oneil RDCS Interpreting Fellow: Poncho Yates ([id number]) Diagnosis: *Non-ST elevation (NSTEMI) myocardial infarction (I21.4) [...] MV E-wave Vmax 0.35 m/sec MV deceleration [id number] msec MV A-wave Vmax 0.25 m/sec MV [...] Normal Mid-Posterolateral Normal Mid-Inferior Normal Mid-Inferoseptal Normal [place]-Septal Normal [place]-Anterior Normal [place]-Lateral Normal [place]-Inferior Normal [place]-Tip Normal This report has been electronically signed by: Jose Chambers MD 08/30/2019 14:21:57 Images reviewed and interpretation verified [facility] Cardiac Ultrasound Laboratory Manish Benitez MD ECHO ORDERABLES * EKG 12 Lead (08/30/2019 10:28 AM EDT) Ventricular rate 52 BPM MUSE SYSTEM Atrial Rate 52 BPM MUSE SYSTEM P-R Interval 162 ms MUSE SYSTEM QRS Duration 84 ms MUSE SYSTEM Q-T Interval 536 ms MUSE SYSTEM QTC Calculated (Bezet) 498 ms MUSE SYSTEM Calculated P [facility] -9 degrees MUSE SYSTEM Calculated R [facility] 43 degrees MUSE SYSTEM Calculated T [facility] -27 degrees MUSE SYSTEM INTERPRETATION Sinus bradycardia [...] AM EDT) Heparin UFH Level 0.44 IU/mL [facility] Comment: Guidelines for therapeutic unfractionated heparin [...] Lab Manish Benitez MD HEMATOLOGY ORDERAB LES [facility] [place] [address] * (ABNORMAL) Differential, Automated (08/30/2019 2:53 AM EDT) Neutrophils % 52.4 % [facility] Neutr Abs (ANC) 3.85 1.70 - 6.10 x10(3)/[facility] Lymphocytes % 29.3 % [facility] Lymphocytes Abs 2.2 0.9 - 3.2 x10(3)/[facility] Monocytes % 9.1 % [facility] Monocyte Abs 0.7 0.3 - 0.9 x10(3)/[facility] Eosinophils % 8.6 % [facility] Eosinophils Abs 0.6(H) 0.0 - 0.4 x10(3)/[facility] Basophils % 0.5 % [facility] Basophils Abs 0.0 0.0 - 0.1 x10(3)/[facility]ORAT[facility] Immature Gran % 0.10 % [facility] Comment: Immature granulocytes(IG's)percentage and absolute count will include metamyelocytes, myelocytes, and promyelocytes. Blood smears from CBCs yielding IG's will be scanned manually for concordance. If this scan disagrees with the automated IG or if promyelocytes are noted, a manual differential will be performed. Shonda Gran Abs 0.01 0.00 - 0.04 x10(3)/ L [facility] Blood specimen (specimen) 08/30/2019 2:53 AM EDT 08/30/2019 3:01 AM EDT Narrative Resulting Agency Comment Spec In Lab [place] SANDRA HEMATOLOGY ORDERABLE S [facility] [place] [address] * (ABNORMAL) Hemogram (08/30/2019 2:53 AM EDT) WBC 7.4 4.0 - 9.5 x10(3)/[facility] RBC 4.84 4.00 - 5.21 x10(6)/[facility] Hemoglobin 14.8 11.7 - 15.5 gm/dL [facility] Hematocrit 44.8 35.7 - 45.8 % [facility] MCV 92.6 82.6 - 94.4 [facility] MCH 30.6 27.1 - 32.0 pg [facility] MCHC 33.0 31.7 - 35.0 gm/dL [facility] Platelets 272 145 - 357 x10(3)/[facility] RDWSD 46.2(H) 37.0 - 46.0 [facility] RDWCV 13.5 11.5 - 14.1 % [facility] MPV 10.9 7.6 - 12.9 [facility] nRBC % Auto 0.0 % [facility] nRBC Abs Auto 0.000 0.000 - 0.000 x10(3)/[facility] Blood specimen (specimen) 08/30/2019 2:53 AM EDT 08/30/2019 3:01 AM EDT Narrative Resulting Agency Comment Spec In Lab [place] SANDRA HEMATOLOGY ORDERABLE S [facility] [place] [address] * Magnesium (08/30/2019 2:53 AM EDT) Magnesium 0.90 0.69 - 1.07 mmol/L [facility] Blood specimen (specimen) 08/30/2019 2:53 AM EDT 08/30/2019 3:01 AM EDT Narrative Resulting Agency Comment Spec In Lab Manish Benitez MD CHEMISTRY ORDERABL ES [facility] [place] [address] * (ABNORMAL) BMP w/fasting Glucose (08/30/2019 2:53 AM EDT) Glucose Fasting 102(H) 65 - 99 mg/dL [facility] Comment: ?Fasting* Glucose Interpretive Criteria [...] of Diabetes Mellitus, Position Statement from the [place] [employer]. ??Diabetes Care, Volume 33, Supplement 1, Mar 2009 BUN 18 8 - 18 mg/dL [facility] Creatinine 1.09 0.70 - 1.20 mg/dL [facility] Sodium 139 135 - 145 mmol/L [facility] Potassium 3.8 3.5 - 5.0 mmol/L [facility] Comment: Please note: ??Patients with WBC >100,000 may have falsely elevated Potassium levels. ??For accurate Potassium quantification in these patients send serum separator tube (gold top) for subsequent determinations. ??Contact the Clinical Chemistry Laboratory if there are any questions. Chloride 103 98 - 107 mmol/L [facility] CO2 19(L) 22 - 31 mmol/L [facility] Anion Gap 17(H) 5 - 15 mmol/L [facility] Calcium 9.0 8.5 - 10.5 mg/dL [facility] Estimated GFR 59(L) >=60 mL/min/1. 73 m?? [facility] Comment: The eGFR was calculated using the CKD-EPI equation. As with all creatinine based estimates of kidney function, eGFR values calculated with the CKD-EPI equation are not accurate in patients with acute kidney failure, extremes of body mass or the acutely ill. [email or web address] eGFR 69 >=60 mL/min/1. 73 m?? [facility] Comment: The eGFR was calculated using the CKD-EPI equation. As with all creatinine based estimates of kidney function, eGFR values calculated with the CKD-EPI equation are not accurate in patients with acute kidney failure, extremes of body mass or the acutely ill. [email or web address] Blood specimen (specimen) 08/30/2019 2:53 AM EDT 08/30/2019 3:01 AM EDT Narrative Resulting Agency Comment Spec In Lab Manish Benitez MD CHEMISTRY ORDERABL ES Performing Organization Address [facility] Co de Phone Number [facility] [place] [address] * Triglyceride (08/30/2019 2:53 AM EDT) Triglycerides 203 mg/dL [facility] Comment: Average Risk/Lower Risk: <150 mg/dL Borderline High Risk: 150-199 mg/dL High Risk: 200-499 mg/dL Very High Risk: >vm=852 mg/dL Blood specimen (specimen) 08/30/2019 2:53 AM EDT 08/30/2019 3:01 AM EDT Narrative Resulting Agency Comment Spec In Lab Manish Benitez MD CHEMISTRY ORDERABL ES Performing Organization Address City/[facility]/ZIP Co de Phone Number [facility] [place] [address] * HDL/Cholesterol Profile (08/30/2019 2:53 AM EDT) Chol, Total 220 mg/dL [facility] Comment: Lower Risk: <200 mg/dL Average Risk: 200-239 mg/dL Higher Risk: >yn=180 mg/dL HDL 34 mg/dL [facility] Comment: Males: ?? Higher Risk: <40 mg/dL Females: ?? HIgher Risk: <50 mg/dL Chol/HDL Ratio 6.5 ratio [facility] Chol/HDL Interpretation See Note [facility] Comment: Lipid management should be guided by a patient? s ASCVD risk, goals and preferences. ACC/AHA Guidelines recommend high intensity statin if clinical ASCVD or LDL greater than or equal to 190 mg/dL. [email or web address]-[email or web address] Measure LDL if Total Cholesterol minus HDL Cholesterol is greater than 220 mg/dL. Adults aged 40-75 with LDL 70-189 mg/dL should have their 10 year ASCVD risk estimated with the ACC/AHA ASCVD risk parts chaser http://tools.acc.org/YWPWV-Fslq-Lciukkmsq/ Statin should be discussed if risk greater [...] Lab Manish Benitez MD CHEMISTRY ORDERABL ES [facility] [place] [address] * LDL Cholesterol, Direct (08/30/2019 2:53 AM EDT) LDL Chol Direct 165 mg/dL [facility] Comment: Lowest Risk: <100 mg/dL Lower Risk: 100-129 mg/dL Borderline High Risk: 130-159 mg/dL High Risk: 160-189 mg/dL Very High Risk: >kn=053 mg/dL Blood specimen (specimen) 08/30/2019 2:53 AM EDT 08/30/2019 3:01 AM EDT Narrative Resulting Agency Comment Spec In Lab Manish Benitez MD CHEMISTRY ORDERABL ES [facility] [place] [address] * Hemoglobin A1c (08/30/2019 2:53 AM EDT) Hemoglobin A1C 5.4 4.3 - 5.6 % [facility] Comment: Reference Range: 4.3 - [...] 1, S67-74 Est Avg Gluc 108 mg/dL [facility] Comment: eAG equivalents for HbA1c [...] into estimated average glucose values. ??Diabetes Care 2008:31(8):9182-4405. Blood specimen (specimen) 08/30/2019 2:53 AM EDT 08/30/2019 3:01 AM EDT Narrative Resulting Agency Comment Spec In Lab Manish Benitez MD CHEMISTRY ORDERABL ES Performing Organization Address [facility] Co de Phone Number [facility] [place] [address] * CK (08/30/2019 2:53 AM EDT) CK, Total 82 0 - 160 unit/L [facility] Blood specimen (specimen) 08/30/2019 2:53 AM EDT 08/30/2019 3:01 AM EDT Narrative Resulting Agency Comment Spec In Lab Manish Benitez MD CHEMISTRY ORDERABL ES Performing Organization Address [facility] de Phone Number [facility] [place] [address] * Troponin (08/30/2019 2:53 AM EDT) Troponin-T <0.01 0.00 - 0.00 ng/mL [facility] Comment: The 99th percentile for Troponin T is less than 0.01 ng/mL, any detectable cTnT concentration using this assay should be considered elevated. According to the third universal definition of myocardial infarction the following criteria with a clinical presentation consistent with acute myocardial ischemia meets the diagnosis for a myocardial infarction ([place]). Detection of a rise and/or fall of cTnT, with at least one value greater than the 99th percentile (> or = 0.01) and with at least one of the following ?? Symptoms of ischemia ?? New or presumed new significant AP-hirnzfj-B wave (ST-T) changes or new left bundle [...] additional sample may be indicated. Reference: Third [place] Definition of Myocardial Infarction. Journal of the [place] [employer] 2012;60:1581-98 Blood specimen (specimen) 08/30/2019 2:53 AM EDT 08/30/2019 3:01 AM EDT Narrative Resulting Agency Comment Spec In Lab Manish Benitez MD CHEMISTRY ORDERABL ES [facility] [place] [address] * (ABNORMAL) Differential, Automated (08/29/2019 8:30 PM EDT) Neutrophils % 56.5 % [facility] Neutr Abs (ANC) 3.58 1.70 - 6.10 x10(3)/mc L [facility] Lymphocytes % 25.9 % [facility] Lymphocytes Abs 1.6 0.9 - 3.2 x10(3)/mc L [facility] Monocytes % 8.8 % [facility] Monocyte Abs 0.6 0.3 - 0.9 x10(3)/mc L [facility] Eosinophils % 7.7 % [facility] Eosinophils Abs 0.5(H) 0.0 - 0.4 x10(3)/mc L [facility] Basophils % 0.8 % [facility] Basophils Abs 0.0 0.0 - 0.1 x10(3)/mc L [facility] Immature Gran % 0.30 % [facility] Comment: Immature granulocytes(IG's)percentage and absolute count will include metamyelocytes, myelocytes, and promyelocytes. Blood smears from CBCs yielding IG's will be scanned manually for concordance. If this scan disagrees with the automated IG or if promyelocytes are noted, a manual differential will be performed. Shonda Gran Abs 0.02 0.00 - 0.04 x10(3)/ L [facility] Blood specimen (specimen) 08/29/2019 8:30 PM EDT 08/29/2019 9:11 PM EDT Narrative Resulting Agency Comment Spec In Lab Abeba SANDRA HEMATOLOGY ORDERABLE S [facility] [place] [address] * (ABNORMAL) Hemogram (08/29/2019 8:30 PM EDT) WBC 6.3 4.0 - 9.5 x10(3)/[facility] RBC 5.03 4.00 - 5.21 x10(6)/[facility] Hemoglobin 15.3 11.7 - 15.5 gm/dL [facility] Hematocrit 46.4(H) 35.7 - 45.8 % [facility] MCV 92.2 82.6 - 94.4 [facility] MCH 30.4 27.1 - 32.0 pg [facility] MCHC 33.0 31.7 - 35.0 gm/dL [facility] Platelets 267 145 - 357 x10(3)/[facility] RDWSD 46.4(H) 37.0 - 46.0 [facility] RDWCV 13.6 11.5 - 14.1 % [facility] MPV 11.3 7.6 - 12.9 [facility] nRBC % Auto 0.0 % [facility] nRBC Abs Auto 0.000 0.000 - 0.000 x10(3)/[facility] Blood specimen (specimen) 08/29/2019 8:30 PM EDT 08/29/2019 9:11 PM EDT Narrative Resulting Agency Comment Spec In Lab Abeba SANDRA HEMATOLOGY ORDERABLE S Performing Organization Address [facility] de Phone Number [facility] [place] [address] * Heparin (unfractionated) Level (08/29/2019 8:30 PM EDT) Heparin UFH Level 0.46 IU/mL [facility] Comment: Guidelines for therapeutic unfractionated heparin [...] ORDERAB LES Performing Organization Address [facility]/ZIP Co de Phone Number [facility] [place] [address] * CK (08/29/2019 8:30 PM EDT) CK, Total 94 0 - 160 unit/L [facility] Blood specimen (specimen) 08/29/2019 8:30 PM EDT 08/29/2019 9:11 PM EDT Narrative Resulting Agency Comment Spec In Lab Manish Benitez MD CHEMISTRY ORDERABL ES Performing Organization Address [facility] Co de Phone Number [facility] [place] [address] * Troponin (08/29/2019 8:30 PM EDT) [facility] Troponin-T <0.01 0.00 - 0.00 ng/mL [facility] Comment: The 99th percentile for Troponin T is less than 0.01 ng/mL, any detectable cTnT concentration using this assay should be considered elevated. According to the third universal definition of myocardial infarction the following criteria with a clinical presentation consistent with acute myocardial ischemia meets the diagnosis for a myocardial infarction ([place]). Detection of a rise and/or fall of cTnT, with at least one value greater than the 99th percentile (> or = 0.01) and with at least one of the following ?? Symptoms of ischemia ?? New or presumed new significant OB-krpeenm-R wave (ST-T) changes or new left bundle [...] additional sample may be indicated. Reference: Third [place] Definition of Myocardial Infarction. Journal of the [place] [employer] 2012;60:1581-98 Blood specimen (specimen) 08/29/2019 8:30 PM EDT 08/29/2019 9:11 PM EDT Narrative Resulting Agency Comment Spec In Lab Manish Benitez MD CHEMISTRY ORDERABL ES Performing Organization Address [facility] Co de Phone Number [facility] [place] [address] * EKG 12 Lead (08/29/2019 4:19 PM EDT) Ventricular rate 67 BPM MUSE SYSTEM Atrial Rate 67 BPM MUSE SYSTEM P-R Interval 164 ms MUSE SYSTEM QRS Duration 80 ms MUSE SYSTEM Q-T Interval 478 ms MUSE SYSTEM QTC Calculated (Bezet) 505 ms MUSE SYSTEM Calculated P [facility] 34 degrees MUSE SYSTEM Calculated R [facility] 30 degrees MUSE SYSTEM Calculated T [facility] -29 degrees MUSE SYSTEM INTERPRETATION Demand pacemaker; [...] Differential, Automated (08/29/2019 3:10 PM EDT) Pathologist [facility] Neutrophils % 58.3 % [facility] Neutr Abs (ANC) 3.79 1.70 - 6.10 x10(3)/mc L [facility] Lymphocytes % 22.7 % [facility] Lymphocytes Abs 1.5 0.9 - 3.2 x10(3)/mc L [facility] Monocytes % 10.3 % [facility] Monocyte Abs 0.7 0.3 - 0.9 x10(3)/mc L [facility] Eosinophils % 7.8 % [facility] Eosinophils Abs 0.5(H) 0.0 - 0.4 x10(3)/mc L [facility] Basophils % 0.6 % [facility] Basophils Abs 0.0 0.0 - 0.1 x10(3)/mc L [facility] Immature Gran % 0.30 % [facility] Comment: Immature granulocytes(IG's)percentage and absolute count will include metamyelocytes, myelocytes, and promyelocytes. Blood smears from CBCs yielding IG's will be scanned manually for concordance. If this scan disagrees with the automated IG or if promyelocytes are noted, a manual differential will be performed. Shonda Gran Abs 0.02 0.00 - 0.04 x10(3)/mc L [facility] Blood specimen (specimen) 08/29/2019 3:10 PM EDT 08/29/2019 3:50 PM EDT Narrative Resulting Agency Comment Spec In Lab Abeba SANDRA HEMATOLOGY ORDERABLE S [facility] [place] [address] * (ABNORMAL) Hemogram (08/29/2019 3:10 PM EDT) WBC 6.5 4.0 - 9.5 x10(3)/[facility] RBC 4.69 4.00 - 5.21 x10(6)/[facility] Hemoglobin 14.1 11.7 - 15.5 gm/dL [facility] Hematocrit 43.8 35.7 - 45.8 % [facility] MCV 93.4 82.6 - 94.4 [facility] MCH 30.1 27.1 - 32.0 pg [facility] MCHC 32.2 31.7 - 35.0 gm/dL [facility] Platelets 235 145 - 357 x10(3)/[facility] RDWSD 47.2(H) 37.0 - 46.0 [facility] RDWCV 13.7 11.5 - 14.1 % [facility] MPV 11.5 7.6 - 12.9 [facility] nRBC % Auto 0.0 % [facility] nRBC Abs Auto 0.000 0.000 - 0.000 x10(3)/[facility] Blood specimen (specimen) 08/29/2019 3:10 PM EDT 08/29/2019 3:50 PM EDT Narrative Resulting Agency Comment Spec In Lab Abeba SANDRA HEMATOLOGY ORDERABLE S Performing Organization Address [facility]/ZIP Co de Phone Number [facility] [place] [address] * Hepatic Function Panel (08/29/2019 3:10 PM EDT) Total Protein 7.1 6.1 - 8.0 gm/dL [facility] Albumin 4.0 3.2 - 5.2 gm/dL [facility] AST 25 0 - 30 unit/L [facility] ALT 19 0 - 30 unit/L [facility] Alk Phos 49 35 - 105 unit/L [facility] Total Bilirubin 0.7 0.2 - 1.3 mg/dL [facility] Bili, Direct 0.1 0.0 - 0.3 mg/dL [facility] Blood specimen (specimen) 08/29/2019 3:10 PM EDT 08/29/2019 3:52 PM EDT Narrative Resulting Agency Comment Spec In Lab Manish Benitez MD CHEMISTRY ORDERABL ES Performing Organization Address [facility] Co de Phone Number [facility] [place] [address] * TSH (08/29/2019 3:10 PM EDT) Pathologist [facility] TSH 1.87 0.27 - 4.20 mcIU/mL [facility] Blood specimen (specimen) 08/29/2019 3:10 PM EDT 08/29/2019 3:52 PM EDT Narrative Resulting Agency Comment Spec In Lab Manish Benitez MD CHEMISTRY ORDERABL ES Performing Organization Address [facility]/ZIP Co de Phone Number [facility] [place] [address] * (ABNORMAL) pro-Brain Natriuretic Peptide (08/29/2019 3:10 PM EDT) [facility] ProBNP 1,242(H) <=125 pg/mL [facility] Blood specimen (specimen) 08/29/2019 3:10 PM EDT 08/29/2019 3:52 PM EDT Narrative Resulting Agency Comment Spec In Lab Manish Benitez MD CHEMISTRY ORDERABL ES Performing Organization Address [facility] Co de Phone Number [facility] [place] [address] * CK (08/29/2019 3:10 PM EDT) [facility] CK, Total 96 0 - 160 unit/L [facility] Blood specimen (specimen) 08/29/2019 3:10 PM EDT 08/29/2019 3:52 PM EDT Narrative Resulting Agency Comment Spec In Lab Manish Benitez MD CHEMISTRY ORDERABL ES Performing Organization Address [facility] de Phone Number [facility] [place] [address] * Troponin (08/29/2019 3:10 PM EDT) [facility] Troponin-T <0.01 0.00 - 0.00 ng/mL [facility] Comment: The 99th percentile for Troponin T is less than 0.01 ng/mL, any detectable cTnT concentration using this assay should be considered elevated. According to the third universal definition of myocardial infarction the following criteria with a clinical presentation consistent with acute myocardial ischemia meets the diagnosis for a myocardial infarction ([place]). Detection of a rise and/or fall of cTnT, with at least one value greater than the 99th percentile (> or = 0.01) and with at least one of the following ?? Symptoms of ischemia ?? New or presumed new significant IK-smxfauy-Z wave (ST-T) changes or new left bundle [...] additional sample may be indicated. Reference: Third [place] Definition of Myocardial Infarction. Journal of the [place] [employer] 2012;60:1581-98 Blood specimen (specimen) 08/29/2019 3:10 PM EDT 08/29/2019 3:52 PM EDT Narrative Resulting Agency Comment Spec In Lab Manish Benitez MD CHEMISTRY ORDERABL ES Performing Organization Address [facility] de Phone Number [facility] [place] [address] * (ABNORMAL) APTT (08/29/2019 3:10 PM EDT) PTT 132(Criti edy) 25 - 37 sec [facility] Comment: Critical Result called by [...] ORDERAB LES Performing Organization Address [facility] Co de Phone Number [facility] [place] [address] * (ABNORMAL) Prothrombin Time (08/29/2019 3:10 PM EDT) PT 13.3(H) 9.4 - 12.5 sec [facility] INR 1.2 [facility] Comment: An INR <2.0 indicates [...] Lab Manish Benitez MD HEMATOLOGY ORDERAB LES [facility] [place] [address] * (ABNORMAL) Basic Metabolic Panel (non-fasting) (08/29/2019 3:10 PM EDT) Glucose Lvl 83 65 - 199 mg/dL [facility] Comment:Diabetes: >=200 mg/d L plus symptoms BUN 15 8 - 18 mg/dL [facility] Creatinine 0.84 0.70 - 1.20 mg/dL [facility] Sodium 138 135 - 145 mmol/L [facility] Potassium 4.2 3.5 - 5.0 mmol/L [facility] Comment: Please note: ??Patients with WBC >100,000 may have falsely elevated Potassium levels. ??For accurate Potassium quantification in these patients send serum separator tube (gold top) for subsequent determinations. ??Contact the Clinical Chemistry Laboratory if there are any questions. Chloride 105 98 - 107 mmol/L [facility] CO2 19(L) 22 - 31 mmol/L [facility] Anion Gap 14 5 - 15 mmol/L [facility] Calcium 9.2 8.5 - 10.5 mg/dL [facility] Estimated GFR 81 >=60 mL/min/1. 73 m?? [facility] Comment: The eGFR was calculated using the CKD-EPI equation. As with all creatinine based estimates of kidney function, eGFR values calculated with the CKD-EPI equation are not accurate in patients with acute kidney failure, extremes of body mass or the acutely ill. [email or web address] eGFR 94 >=60 mL/min/1. 73 m?? [facility] Comment: The eGFR was calculated using the CKD-EPI equation. As with all creatinine based estimates of kidney function, eGFR values calculated with the CKD-EPI equation are not accurate in patients with acute kidney failure, extremes of body mass or the acutely ill. [email or web address] Blood specimen (specimen) 08/29/2019 3:10 PM EDT 08/29/2019 3:52 PM EDT Narrative Resulting Agency Comment Spec In Lab Manish Benitez MD CHEMISTRY ORDERABL ES [facility] [place] [address] documented in this encounter Visit Diagnoses Diagnosis [...] (Given - Provider: Mark Nick RN)1357 ([facility] Hold - Provider: Admin Adt - Reason: Transfer to a Procedural area)1530 ([facility] Unhold - Provider: Admin Adt) atorvastatin (Lipitor) tablet 80 mg (CANCELED) 80 mg, Oral, EVERY EVENING, First dose on Wed08/29/19 at 1715, Until Discontinued, Routine 1701 (Given - Provider: Mark Nick RN) 1357 ([facility] Hold - Provider: Admin Adt - Reason: Transfer to a Procedural area)1530 ([facility] Unhold - Provider: Admin Adt) clopidogreL (Plavix) tablet 75 mg (CANCELED) 75 mg, Oral, DAILY, First dose on Wed08/30/19 at 0900, Until Discontinued, Routine 0842 (Given - Provider: Mark Nick RN)1357 ([facility] Hold - Provider: Admin Adt - Reason: Transfer to a Procedural area)1530 ([facility] Unhold - Provider: Admin Adt) DULoxetine DR (Cymbalta) capsule 60 mg 60 mg, Oral, NIGHTLY, First dose on Wed08/29/19 at 2100, Until Discontinued, Routine 2048 (Given - Provider: Efrain Verma RN) 1357 ([facility] Hold - Provider: Admin Adt - Reason: Transfer to a Procedural area)1530 ([facility] Unhold - Provider: Admin Adt)2030 (Given - [...] Reason: Transfer to a Procedural area)153 ([facility] Unhold - Provider: Admin Adt)2030 (Given - Provider: Gauri Arroyo, ERWIN) topiramate (Topamax) tablet 50 mg 50 mg, [...] UA) documented in this encounter Care Teams [employer] Relationship Specialty Start Date End Date Tim Rogers DNP PCP - General Family Medicine 08/28/19 06/08/21 documented as of this encounter
--- OUTSIDE RECORDS SUMMARY | 2023-09-20 18:40 | XMS_ITS | Encounter Summary ---
[place] [address] Care Team Providers Care Import Export Clerk Name Role Phone Tim Rogers DNP Primary Care Provider [phone] Reason for Visit * Reason Onset Date Comments Other 10/25/2020 Regarding Ziopat ch Encounter Details Date Type Department Care Team (Late st Contact Info) Description 10/25/2020 Telephone [place] [phone] Olive Gonzales RN Other (Regarding Ziopatch) Social [...] reach out to Pt. Pt must call [phone] to request Ziopatch. Olive Gonzales RN Department of Pulmonary 5C, [facility] / Pager: [phone] documented in this encounter Plan of Treatment Upcoming Encounters Date Type Department Care Team (Late st Contact Info) Description 10/08/2023 8:30 AM EDT Tech Visit Vascular Lab at [place] [phone] Jose Cook 10/08/2023 9:30 AM EDT Office Visit Vascular [place] [address] MD [facility] [place] [address] 10/21/2023 10:30 AM EDT Appointment Nuclear Medicine at [place] [phone] Mary Reyes [facility] [place] [address] 10/21/2023 11:30 AM EDT Appointment Nuclear Medicine at [place] [phone] Mary Reyes [facility] [place] [address] 10/21/2023 12:30 PM EDT Appointment Nuclear Medicine at [place] [phone] Mary Reyes [facility] [place] [address] 10/21/2023 1:30 PM EDT Appointment Nuclear Medicine at [place] [phone] Mary Reyes, ROM [facility] [place] [address] 10/21/2023 2:30 PM EDT Appointment Nuclear Medicine at [place] [phone] Mary Reyes APRN [facility] [place] [address] 10/26/2023 4:00 PM EDT Office Visit Cardiology at [address] [phone] Jaspreet Kinsey MD [facility] [place] [address] 10/28/2023 9:00 AM EDT Office Visit [place] [address] 10/29/2023 10:00 AM EDT Clinical Support [place] [address] 10/29/2023 10:15 AM EDT Procedure visit [place] [address] 11/01/2023 5:00 PM EDT Office Visit Gastroenterology at [place] [phone] Selene Browning, PhD [facility] [place] [address] 11/22/2023 4:40 PM EDT Office Visit Cardiology at [address] [address] Porsha Mcdaniels MD [facility] [place] [address] 12/13/2023 10:00 AM EDT Clinical Support [place] [address] Lucero Romero, [place] [facility] [place] [address] documented as of this encounter Visit Diagnoses Not on filedocumented in this encounter Care Teams Import Export Clerk Relationship Specialty Start Date End Date Tim Rogers DNP PCP - General Family Medicine 08/28/19 06/08/21 documented as of this encounter
--- OUTSIDE RECORDS SUMMARY | 2023-09-20 18:40 | XMS_ITS | Encounter Summary ---
[place] [address] Care Team Providers Care Tree Feller Operator Name Role Phone Tim Rogers DNP Primary Care Provider [phone] [phone] Reason for Visit * Reason Onset Date Comments Other 10/18/2020 Pt requesting ca ll back from MD Encounter Details Date Type Department Care Team (Late st Contact Info) Description 10/18/2020 Tele[place] [phone] Olive Gonzales RN Other (Pt requesting call back from [...] Olive Gonzales RN Department of Pulmonary 5C, [facility] [place] / Pager: [phone] documented in this encounter Plan of Treatment Upcoming Encounters Date Type Department Care Team (Late st Contact Info) Description 10/08/2023 8:30 AM EDT Tech Visit Vascular Lab at [place] [phone] Jose Cook 10/08/2023 9:30 AM EDT Office [place] [address] MD [facility] [place] [address] 10/21/2023 10:30 AM EDT Appointment Nuclear Medicine at [place] [phone] Mary Reyes [facility] [place] [address] 10/21/2023 11:30 AM EDT Appointment Nuclear Medicine at [place] [phone] Mary Reyes [facility] [place] [address] 10/21/2023 12:30 PM EDT Appointment Nuclear [place] [phone] Mary Reyes [facility] [place] [address] 10/21/2023 1:30 PM EDT Appointment Nuclear [place] [phone] Mary Reyes [facility] [place] [address] 10/21/2023 2:30 PM EDT Appointment Nuclear Medicine at [place] [phone] Mary Reyes APRN [facility] [place] [address] 10/26/2023 4:00 PM EDT Office Visit Cardiology at [address] [phone] Jaspreet Kinsey MD [facility] [place] [address] 10/28/2023 9:00 AM EDT Office Visit [place] [address] 10/29/2023 10:00 AM EDT Clinical Support [place] [address] 10/29/2023 10:15 AM EDT Procedure visit [place] [address] 11/01/2023 5:00 PM EDT Office Visit Gastroenterology at [place] [phone] Selene Browning, PhD [facility] [place] [address] 11/22/2023 4:40 PM EDT Office Visit Cardiology at [address] [phone] Porsha Mcdaniels MD [facility] [place] [address] 12/13/2023 10:00 AM EDT Clinical Support [place] [address] Lucero Romero, [place] [facility] [place] [address] documented as of this encounter Visit Diagnoses Not on filedocumented in this encounter Care Teams Tree Feller Operator Relationship Specialty Start Date End Date Tim Rogers DNP PCP - General Family Medicine 08/28/19 06/08/21 documented as of this encounter
--- OUTSIDE RECORDS SUMMARY | 2023-09-20 18:40 | XMS_ITS | Encounter Summary ---
Author Organization [facility] [place] [address] Care Team Providers Care Career Consultant Name Role Phone Tim Rogers DNP Primary Care Provider Encounter Details Date Type Department Care Team (Late st Contact Info) Description 04/26/2020 Orders [place] [phone] Bull Fitzgerald MD [facility] [place] [address] Dyspnea, unspecified type (Primary Dx) Social History [...] EDT Tech Visit [place] [phone] Jose Cook 10/08/2023 9:30 AM EDT Office [place] [address] MD [facility] [place] [address] 10/21/2023 10:30 AM EDT Appointment Nuclear Medicine at [address]1000 Mary Reyes [facility] [place] [address] 10/21/2023 11:30 AM EDT Appointment Nuclear Medicine at [address]1000 Mary Reyes [facility] [place] [address] 10/21/2023 12:30 PM EDT Appointment Nuclear Medicine at [place] [phone] Mary Reyes [facility] [place] [address] 10/21/2023 1:30 PM EDT Appointment [place] [phone] Mary Reyes [facility] [place] [address] 10/21/2023 2:30 PM EDT Appointment [place] [phone] Mary Reyes [facility] [place] [address] 10/26/2023 4:00 PM EDT Office Visit Cardiology at [address] [phone] Jaspreet Kinsey MD [facility] [place] [address] 10/28/2023 9:00 AM EDT Office [place] [address] 10/29/2023 10:00 AM EDT Clinical [place] [address] 10/29/2023 10:15 AM EDT Procedure [place] [address] 11/01/2023 5:00 PM EDT Office [place] [phone] Selene Browning, PhD [facility] [place] [address] 11/22/2023 4:40 PM EDT Office Visit Cardiology at [address] [phone] Porsha Mcdaniels MD [facility] [place] [address] 12/13/2023 10:00 AM EDT Clinical [place] [phone] Lucero Romero, [place] [facility] [place] [address] documented as of this encounter Results * [...] / FVC LLN 69 % COMPAS PFT PYA39-04 Actual Pre-BD 3.14 L/s COMPAS PFT UTJ89-94 Pre-BD % of Predicted 116 % COMPAS PFT UVO51-97 Predicted 2.70 L/s COMPAS PFT ZVO97-75 Pre-BD Z-Score 0.51 COMPAS PFT FVC Actual [...] PFT FEV1/FVC Post-BD Z-Score 1.94 COMPAS PFT SLV25-66 Actual Post-BD 4.26 L/s COMPAS PFT XIM60-08 Post-BD % of Predicted 158 % COMPAS PFT PSK32-02 Post-BD Z-Score 1.67 COMPAS PFT DLCO Hb [...] type documented in this encounter Care Teams Career Consultant Relationship Specialty Start Date End Date Tim Rogers DNP PCP - General Family Medicine 08/28/19 06/08/21 documented as of this encounter
--- OUTSIDE RECORDS SUMMARY | 2023-09-20 18:40 | XMS_ITS | Encounter Summary ---
Author Organization [facility] [place] [address] Care Team Providers Care Nightclub Manager Name Role Phone Tim Rogers DNP Primary Care Provider [phone] Reason for Visit * Reason Comments Referral Dyspnea On Exertion * Consultation (Routine) - Specialty Diagnoses / Procedures Referred By Jayant harris Referred To Contact Pulmonology Diagnoses Other forms of dyspnea Virginia Neal MD [facility] [address] [place] [address] [facility] Pulmonology [address] [place] [phone] Referral ID Status Reason Start Date Expiration Date V isits Requested Visits Authorized [id number] Consult, Test & Treat Connection Center PCP Updated and/or Approved 04/05/2020 10/02/2020 6 6 Encounter Details Date Type Department Care Team (Latest Contact Info) Description 08/01/2020 1:00 PM EDT Office [place] [address] Beto Miller MD [facility] [place] [address] Asthma, chronic, moderate persistent, uncomplicated [...] Miller MD - 08/01/2020 1:00 PM EDT [facility] Section of Pulmonary Medicine Outpatient Consultation Date of Encounter: 08/01/2020 Referring Provider: Virginia Neal Md [address] [place] [address] PCP: Tim Rogers APRN [address] [place] [address] Reason for Consult: I was asked to [...] unable to breathe and was sent to [facility] for the possibility of non-ST elevation myocardial [...] ONCE ??? fluticasone propionate (FLONASE) 50 mcg/actuation [place], Suspension 1 spray by Each Nare route [...] CT scan of the chest performed in [facility]. 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 She has been prescribed Symbicort [...] MD Pulmonary and Critical Care Medicine Pager #[phone] documented in this encounter Plan of Treatment Upcoming Encounters Date Type Department Care Team (Late st Contact Info) Description 10/08/2023 8:30 AM EDT Tech [place] [address] Jose Cook 10/08/2023 9:30 AM EDT Office Visit [place] [address] MD [facility] [place] [address] 10/21/2023 10:30 AM EDT Appointment [place] [address] Mary Reyes [facility] [place] [address] 10/21/2023 11:30 AM EDT Appointment [place] [address] Mary Reyes [facility] [place] [address] 10/21/2023 12:30 PM EDT Appointment [place] [address] Mary Reyes, [facility] [place] [address] 10/21/2023 1:30 PM EDT Appointment [place] [address] Mary Reyes, [facility] [place] [place] [address] 10/21/2023 2:30 PM EDT Appointment [place] [address] Mary Reyes, [facility] [place] [place] [address] 10/26/2023 4:00 PM EDT Office Visit Cardiology at [address] [phone] Jaspreet Kinsey MD [facility] [place] [address] 10/28/2023 9:00 AM EDT Office [place] [address] 10/29/2023 10:00 AM EDT Clinical [place] [address] 10/29/2023 10:15 AM EDT Procedure [place] [address] 11/01/2023 5:00 PM EDT Office Visit [place] [address] Selene Browning, PhD [facility] [place] [address] 11/22/2023 4:40 PM EDT Office Visit Cardiology at [address] [phone] Porsha Mcdaniels MD [facility] [place] [address] 12/13/2023 10:00 AM EDT Clinical Support [place] [phone] [facility] [place] [address] documented as of this encounter Visit Diagnoses Diagnosis Asthma, chronic, moderate persistent, uncomplicated documented in this encounter Care Teams Nightclub Manager Relationship Specialty Start Date End Date Tim Rogers DNP PCP - General Family Medicine 08/28/19 06/08/21 documented as of this encounter
--- OUTSIDE RECORDS SUMMARY | 2023-09-20 18:40 | XMS_ITS | Encounter Summary ---
Author Organization [facility] [place] [address] Care Team Providers Care Transaction Processor Name Role Phone Tim Rogers DNP Primary Care Provider Reason for Visit * Diagnostic Test (Routine) - Closed Specialty Diagnoses / Procedures Referred By Jayant harris Referred To Contact Cardiology Diagnoses Palpitations Procedures Ziopatch 48 Hrs-15 Days Beto Miller MD [facility] [place] [address] [facility] [place] [address] Referral ID Status Reason Start Date Expiration Date V isits Requested Visits Authorized [id number] Closed Specialty Service Requested 10/28/2020 03/07/2021 1 1 Encounter Details Date Type Department Care Team (Latest Contact Info) Description 10/28/2020 8:00 AM EDT - 10/28/2020 11:59 PM EDT Hospital Encounter Non-Invasive [place] [address] Beto Miller MD [facility] [place] [address] Palpitations Discharge Disposition: Home Social [...] as needed. fluticasone propionate (FLONASE) 50 mcg/actuation [place], Suspension 1 spray by Each Nare route [...] AM EDT Tech Visit [place] [address]-1000 Jose Cook 10/08/2023 9:30 AM EDT Office Visit [place] [phone] MD [facility] [place] [address] 10/21/2023 10:30 AM EDT Appointment [place] [address]-1000 Mary Reyes [facility] [place] [address] 10/21/2023 11:30 AM EDT Appointment [place] [address]-1000 Mary Reyes [facility] [place] [address] 10/21/2023 12:30 PM EDT Appointment [place] [address]-1000 Mary Reyes [facility] [place] [address] 10/21/2023 1:30 PM EDT Appointment [place] [address]-1000 Mary Reyes APRN [facility] [place] [address] 10/21/2023 2:30 PM EDT Appointment Nuclear Medicine at [place] [phone] Mary Reyes APRN [facility] [place] [address] 10/26/2023 4:00 PM EDT Office Visit Cardiology at [address] [phone] Jaspreet Kinsey MD [facility] [place] [address] 10/28/2023 9:00 AM EDT Office Visit [place] [address] 10/29/2023 10:00 AM EDT Clinical Support [place] [address] 10/29/2023 10:15 AM EDT Procedure visit [place] [address] 11/01/2023 5:00 PM EDT Office Visit Gastroenterology at [place] [phone] Selene Browning, PhD [facility] [place] [address] 11/22/2023 4:40 PM EDT Office Visit Cardiology at [address] [phone] Porsha Mcdaniels MD [facility] [place] [address] 12/13/2023 10:00 AM EDT Clinical Support [place] [address] Lucero Romero, [place] [facility] [place] [address] documented as of this encounter Procedures Procedure [...] Palpitations documented in this encounter Care Teams Transaction Processor Relationship Specialty Start Date End Date Tim Rogers DNP PCP - General Family Medicine 08/28/19 06/08/21 documented as of this encounter
--- OUTSIDE RECORDS SUMMARY | 2023-09-20 18:40 | XMS_ITS | Encounter Summary ---
Author Organization [facility] [place] [address] Care Team Providers Care Blocker Automatic Name Role Phone Tim Rogers DNP Primary Care Provider [phone] Encounter Details Date Type Department Care Team (Late st Contact Info) Description 07/12/2020 Tele[place] [phone] Jo Ann Colon Social History Tobacco Use [...] AM EDT Tech [place] [address]-1000 Jose Cook 10/08/2023 9:30 AM EDT Office [place] [address] Thiago Wya MD [facility] [place] [address] 10/21/2023 10:30 AM EDT Appointment [place] [address] Mary Reyes [facility] [place] [address] 10/21/2023 11:30 AM EDT Appointment Nuclear Medicine at [address]1000 Mary Reyes, [facility] [place] [address] 10/21/2023 12:30 PM EDT Appointment Nuclear Medicine at [place] [phone] Mary Reyes [facility] [place] [address] 10/21/2023 1:30 PM EDT Appointment [place] [address] Mary Reyes [facility] [place] [address] 10/21/2023 2:30 PM EDT Appointment [place] [address] Mary Reyes [facility] [place] [address] 10/26/2023 4:00 PM EDT Office Visit Cardiology at [address] [phone] Jaspreet Kinsey MD [facility] [place] [address] 10/28/2023 9:00 AM EDT Office Visit [place] [address] 10/29/2023 10:00 AM EDT Clinical Support [place] [address] 10/29/2023 10:15 AM EDT Procedure visit [place] [address] 11/01/2023 5:00 PM EDT Office [place] [address] Selene Browning, PhD [facility] [place] [address] 11/22/2023 4:40 PM EDT Office Visit Cardiology at [address] [address] Porsha Mcdaniels MD [facility] [place] [address] 12/13/2023 10:00 AM EDT Clinical [place] [address] Lucero Romero, [place] [facility] [place] [address] documented as of this encounter Visit Diagnoses Not on filedocumented in this encounter Care Teams Blocker Automatic Relationship Specialty Start Date End Date Tim Rogers DNP PCP - General Family Medicine 08/28/19 06/08/21 documented as of this encounter
--- OUTSIDE RECORDS SUMMARY | 2023-09-20 18:40 | XMS_ITS | Encounter Summary ---
[place] [address] Care Team Providers Care Overlock Sleeve Setter Name Role Phone Tim Rogers DNP Primary Care Provider [phone] Reason for Visit * Reason Onset Date Comments Nasal Congestion 09/02/2020 Cough 09/02/2020 Shortness of Breath 09/02/2020 Anorexia 09/02/2020 Lack of appetite Encounter Details Date Type Department Care Team (Late st Contact Info) Description 09/02/2020 Tele[place] [phone] Renetta Graham RN Nasal Congestion; Cough; Shortness [...] radha annita. Return Contact Number: Work - [phone], ask for Mihaela Preferred Pharmacy: [facility] on file. documented in this encounter Plan of Treatment Upcoming Encounters Date Type Department Care Team (Late st Contact Info) Description 10/08/2023 8:30 AM EDT Tech [place] [address] Jose Cook 10/08/2023 9:30 AM EDT Office [place] [address] MD [facility] [place] [address] 10/21/2023 10:30 AM EDT Appointment [place] [address]-1000 Mary Reyes APRN [facility] [place] [address] 10/21/2023 11:30 AM EDT Appointment [place] [address] Mary Reyes [facility] [place] [address] 10/21/2023 12:30 PM EDT Appointment [place] [address] Mary Reyes [facility] [place] [address] 10/21/2023 1:30 PM EDT Appointment [place] [address] Mary Reyes [facility] [place] [address] 10/21/2023 2:30 PM EDT Appointment [place] [address] Mary Reyes [facility] [place] [address] 10/26/2023 4:00 PM EDT Office Visit Cardiology at [address] [place] [phone] Jaspreet Kinsey MD [facility] [place] [address] 10/28/2023 9:00 AM EDT Office Visit [place] [address] 10/29/2023 10:00 AM EDT Clinical Support [place] [address] 10/29/2023 10:15 AM EDT Procedure visit [place] [address] 11/01/2023 5:00 PM EDT Office Visit Gastroenterology at [place] [phone] Selene Browning, PhD [facility] [place] [address] 11/22/2023 4:40 PM EDT Office Visit Cardiology at [address] [phone] Porsha Mcdaniels MD [facility] [place] [address] 12/13/2023 10:00 AM EDT Clinical [place] [address]85[address] Lucero Romero, [place] [facility] [place] [address] documented as of this encounter Visit Diagnoses Not on filedocumented in this encounter Care Teams Overlock Sleeve Setter Relationship Specialty Start Date End Date Tim Rogers DNP PCP - General Family Medicine 08/28/19 06/08/21 documented as of this encounter
--- OUTSIDE RECORDS SUMMARY | 2023-09-20 18:41 | XMS_ITS | Encounter Summary ---
Author Organization [facility] [place] [address] Care Team Providers Care Director Of Acquisition Marketing Name Role Phone Dustin Nino MD Primary Care Provider [phone] Encounter Details Date Type Department Care Team (Late st Contact Info) Description 06/17/2010 [place] [address] Lashonda York MD [facility] DR ALLERGY [place] [address] Social History Tobacco Use Types Packs/Day Years [...] AM EDT Tech [place] [phone] Jose Cook 10/08/2023 9:30 AM EDT Office [place] [phone] MD [facility] [place] [address] 10/21/2023 10:30 AM EDT Appointment [place] [address] [address] [facility] [place] [address] 10/21/2023 11:30 AM EDT Appointment [place] [address] Mary Reyes [facility] [place] [address] 10/21/2023 12:30 PM EDT Appointment [place] [address] Mary Reyes [facility] [address] 10/21/2023 1:30 PM EDT Appointment [place] [address] Mary Reyes [facility] [place] [address] 10/21/2023 2:30 PM EDT Appointment [place] [address] Mary Reyes [facility] [place] [address] 10/26/2023 4:00 PM EDT Office Visit Cardiology at [address] [phone] Jaspreet Kinsey MD [facility] [place] [address] 10/28/2023 9:00 AM EDT Office [place] [address] 10/29/2023 10:00 AM EDT Clinical Support [place] [address] 10/29/2023 10:15 AM EDT Procedure visit [place] [address] 11/01/2023 5:00 PM EDT Office [place] [address] Selene Browning, PhD [facility] [place] [address] 11/22/2023 4:40 PM EDT Office Visit Cardiology at [address] [address] Porsha Mcdaniels MD [facility] [place] [address] 12/13/2023 10:00 AM EDT Clinical [place] [address] Lucero Romero, ALVA [facility] [place] [address] documented as of this encounter Visit Diagnoses Not on filedocumented in this encounter Care Teams Director Of Acquisition Marketing Relationship Specialty Start Date End Date Dustin Nino MD [facility] [address] [place] [address] PCP - General 06/11/10 08/27/19 documented as of this encounter
--- OUTSIDE RECORDS SUMMARY | 2023-09-20 18:41 | XMS_ITS | Encounter Summary ---
Author Organization [facility] Address [address] [place] [address] Care Team Providers Care Finance Business Partner Name Role Phone Unknown, Provider Primary Care Provider Encounter Details Date Type Department Care Team (Late st Contact Info) Description 09/06/2020 Lab Requisition [facility] Pathology & Laboratory Medicine - [address] [address] Outr Resulting Lab, Provider Social History Tobacco [...] Outr Resulting Lab MICROBIOLOGY - GENERAL ORDERABLES [facility] [address] [place] [address] * COVID-19 TESTING (09/05/2020 14:00 EDT) COVID-19 rt-PCR Result Negative Negative 09/07/2020 14:05 EDT [facility] Comment: This test has not [...] developed and its performance characteristics determined by [facility]. It has not been cleared or approved [...] testing. This test is based on the [facility] COVID-19 Emergency Use Authorization (EUA) assay, with minor modification as defined by the FDA Performed on the [employer] 7 Flex RT-PCR System. Performing Lab [facility] Lab 09/07/2020 14:05 EDT [facility] Swab 09/05/2020 14:0 0 EDT 09/06/2020 16:13 EDT Provider Outr Resulting Lab MICROBIOLOGY - GENERAL ORDERABLES [facility] [address] [place] [address] documented in this encounter Visit Diagnoses Not on filedocumented in this encounter Care Teams Finance Business Partner Relationship Specialty Start Date End Date Unknown, Provider, PCP - General 01/28/10 documented as of this encounter
--- OUTSIDE RECORDS SUMMARY | 2023-09-20 18:41 | XMS_ITS | Encounter Summary ---
Author Organization [facility] Address [address] [place] [address] Care Team Providers Care Human Capital Analyst Name Role Phone Unavailable Primary Care Provider Unavailabl e Encounter Details Date Type Department Care Team (Late st Contact Info) Description 05/15/1999 Results Only [facility] [place] conversion [address] [place] [address] Channing Brand MD [address] [place] [address] Social History Tobacco Use Types [...] ? LOIDA ROQUE ? Accession #: ? [id number] ? : ? 1970 (Age: 29) ??F [...] Brand MD PATHOLOGY ORDERABLES Performing Organization Address City/State/[facility] Co de Phone Number [facility] [address] [place] [address] documented in this encounter Visit Diagnoses Not on filedocumented in this encounter
--- OUTSIDE RECORDS SUMMARY | 2023-09-20 18:41 | XMS_ITS | Encounter Summary ---
[place] [address] Care Team Providers Care Inventory Associate And Driver Name Role Phone Tim Rogers DNP Primary Care Provider [phone] Reason for Visit * Auth/Cert Specialty Diagnoses / Procedures Referred By Jayant harris Referred To Contact Diagnoses NSTEMI (non-ST elevated myocardial infarction) NSTEMI Procedures EMERGNECY IPI Referral ID Status Reason Start Date Expiration Date Visits Re quested Visits Authorized [id number] 1 1 Encounter Details Date Type Department Care Team (Late st Contact Info) Description 08/30/2019 1:00 PM EDT - 08/30/2019 2:00 PM EDT [place] [phone] Jessee Malone MD [facility] [place] [address] CARDIAC CATHETERIZATION Social History Tobacco Use Types [...] this encounter Discharge Summaries * Natalia Urbina, HOUSING ASSISTANT PROPERTY MANAGER - 08/30/2019 5:18 PM EDT Images from the original note were not included. Discharge Summary Patient Name: Loida Roque Patient Age: 49 y.o. Language: Guyanese Race: White Ethnicity: Not nor Admit date: [...] pain overnight ~3 weeksago concerning for missed [place]. ??In the ED, her EKG was abnormal [...] follow-up visit please call one of the stockbroking dealer on Wednesday-Wednesday between the hours of 8A- 5PM. Cardiology Clinic number @ [phone] If off hours contact the cardiac fellow on- call. Hospital Gun Sealing Machine Operator can help you. Hospital phone number [phone] Return to work: In 1 week Drivin hours post catheterization Follow up Appointments: Doctor Where Phone # Date Time Bouchra Frias APRN [address] / [facility] [id number] 09/13/19 8:30 Discharge References/Attachments None Discussed with MD Natalia Lira APRN Pager [phone] 08/31/2019 documented in this encounter Discharge Instructions * Discharge Instructions* Natalia Urbina APRN - 08/31/2019 3:54 PM EDT Call your doctor if: Chest pain, dyspnea, pain or swelling in legs occurs. If you have non-emergent questions, prior to your follow-up visit please call one of the stockbroking dealer on Wednesday-Wednesday between the hours of 8A- 5PM. Cardiology Clinic number @ [phone] If off hours contact the cardiac fellow on- call. Hospital Gun Sealing Machine Operator can help you. [facility] phone number [phone] Return to work: In 1 week Drivin hours post catheterization Follow up Appointments: Doctor Where Phone # Date Time Bouchra Frias APRN [address] / [facility] [id number] 09/13/19 8:30 * Attachments The following attachments cannot be sent through Care Everywhere. * Cardiac Catheterization: Left (Guyanese) documented in this encounter Medications at Time of Discharge Medication Sig Dispensed Refills Start Date End Date fluticasone propionate (FLONASE) 50 mcg/actuation [place], Suspension 1 spray by Each Nare route [...] Spirometry Patient Loida Roque 49 y.o. 1970 [id number] Spirometry Spirometry performed successfully. Waiting for read [...] Pt wheeled out of the unit with SOLAR CREW MEMBER. * Leonardo Jolly - 08/31/2019 12:25 PM EDT Nutrition Services Note - Low Nutrition Acuity Loida Roque is a 49 y.o. female Reason for intervention: education [facility] + NA Nutrition Plan: Patient states that she follows a low sodium restriction a home. Educational Material Guidelines for a Heart Healthy Lifestyle provided. Continue current diet. Educational Material provided. Monitor weight. Encourage good oral intake. Support and encouragement provided. Nutrition will continue to monitor and follow up with patient as needed. Active Orders Diet Daily Healthy Menu Choices/Cardiac diet ([facility]-Diet) Frequency: Effective Now Number of Occurrences: Until [...] consulted in the interim. Leonardo Jolly Pager: [phone] * Manish Benitez MD - 08/31/2019 9:33 AM EDT Images from the original note were not included. Inpatient Cardiology Progress Note Patient Name: Loida Rqoue Service: TUBING ASSEMBLER / PA Responsible Attending: Manish Benitez MD [...] See remainder of report for additional findings. [facility] 08/29 Preliminary findings: Right dominant Normal coronary [...] overnight ~3 weeks ago concerning for missed [place]. ??In the ED, her EKG was abnormal with diffuse STTW abnormalities but unchanged from prior EKG in 200 7.?Troponin??I??positive at 0.25 (ULN 0.06). ??Vitals stable and patient asymptomatic at rest. ??DDimer positive at 1037 thus??CT-PE protocol??completed. ??No PE or acute aortic pathology. ??She is transferred for further work up of NSTEMI. ??EF 62% and no wall motions seen on echo. [facility] with normal cors and LVEDP 15. Will [...] Echo with EF 62% and no WMA [facility] with normal cors A1C 5.4% Bedside PFTs today ?? FULL CODE Discussed with MD Natalia Lira, HOUSING ASSISTANT PROPERTY MANAGER Pager [phone] 08/31/2019 Cardiology Attending Note I interviewed and examined the patient during comprehensive bedside rounds. I concur with the summary of interval events, active hospital-focused problem list and plan of care as described in the note below. I personally reviewed the medications, laboratory results, treatment decisions and updated the patient. Manish Benitez MD, FACP, FACC Section of Cardiovascular Medicine [facility] Water Treatment Plant Operatoroutdoor adventure instructor [facility] This patient meets or has met [...] Progress Note Patient Name: Loida Roque Service: TUBING ASSEMBLER / PA Responsible Attending: Manish Benitez MD [...] overnight ~3 weeks ago concerning for missed [place]. 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 fluticasone propionate (FLONASE) 50 mcg/actuation [place], Suspension 1 spray by Each Nare route [...] overnight ~3 weeks ago concerning for missed [place]. In the ED, her EKG was abnormal with diffuse STTW abnormalities but unchanged from prior EKG in 2006. Troponin I positive at 0.25 (ULN 0.06). Vitals stable and patient asymptomatic at rest. DDimer positive [id number] thus CT-PE protocol completed. No PE or acute aortic pathology. She is transferred for furtherwork up of NSTEMI. Plan Echo and coronary angiography. TREATMENT PLAN: #NSTEMI Admit to cardiology Trend troponin - 1st negative at [facility] ProBNP 1242; Admit weight 207 lbs; Lasix [...] MD, FACP, FACC Section of Cardiovascular Medicine [facility] Water Treatment Plant Operatoroutdoor adventure instructor [facility] This patient meets or has met [...] Primary care provider on file: Tim Rogers, HOUSING ASSISTANT PROPERTY MANAGER [phone] Advance Directive on file and Code Status: Full Code Patient???s Functional Status: Independent w/o device Living Situation: lives with Boby Roque (Spouse) [phone] (M) at [address] [place] [address] Supports: Boby, Mother son and daughter Assessment: Patient with no apparent RNCM/SW needs at this time. No housing, transportation, insurance, resources concerns identified at this time. Supports in place to achieve a safe post-hospital transition. No identified barriers to accessing necessary care and/or follow-up after discharge. Plan: Patient to d/c to home when medically ready. astronautical engineer/Claims Sorter will continue to follow patient???s progress and remain available if situation changes for coordination of care, psychosocial support and/or discharge planning. Angela Loving RN * Brief Op Note - Jessee Malone MD - 08/30/2019 2:31 PM EDT Preliminary Cardiac Catheterization Procedure Note: Patient Name: Loida Roque : [id number] MR#: [id number] Case Date: 08/30/2019 Gun Sealing Machine Operator: Surgeon(s) and Role: * Jessee Malone MD - Primary * Luis Tatum PA - Fellow Preoperative diagnosis: ?CAD Postoperative diagnosis: * CAD * Procedure(s) performed: [facility] Coronary angio Access: Right radial A time-out [...] for further details. JOCY Montaño 08/30/2019 Pager [phone] * Plan of Care - Efrain Verma [...] AM EDT Tech [place] [phone] Jose Cook 10/08/2023 9:30 AM EDT Office Visit [place] [phone] MD [facility] DR VASCULAR SURGERY [place] [id number] 10/21/2023 10:30 AM EDT Appointment [place] [address] Calvino, Mary M, [facility] [place] [address] 10/21/2023 11:30 AM EDT Appointment Nuclear Medicine at [place] [phone] Mary Reyes [facility] [place] [address] 10/21/2023 12:30 PM EDT Appointment [place] [phone] Mary Reyes [facility] [place] [address] 10/21/2023 1:30 PM EDT Appointment [place] [address] Mary Reyes [facility] [place] [address] 10/21/2023 2:30 PM EDT Appointment [place] [address] Mary Reyes [facility] [place] [address] 10/26/2023 4:00 PM EDT Office Visit Cardiology at [address] [phone] Jaspreet Kinsey MD [facility] [place] [address] 10/28/2023 9:00 AM EDT Office [place] [address] 10/29/2023 10:00 AM EDT Clinical [place] [address] 10/29/2023 10:15 AM EDT Procedure [place] [address] 11/01/2023 5:00 PM EDT Office [place] [address] Selene Browning, PhD [facility] [place] [address] 11/22/2023 4:40 PM EDT Office Visit Cardiology at [address] [phone] Porsha Mcdaniels MD [facility] [place] [address] 12/13/2023 10:00 AM EDT Clinical Support [place] [address] [facility] [place] [address] documented as of this encounter Procedures Procedure [...] (FVC >70%) Zoe Morocho MD Natalia Urbina HOUSING ASSISTANT PROPERTY MANAGER PFT ORDERABLES * EKG 12 Lead (08/31/2019 7:05 AM EDT) Ventricular rate 51 BPM MUSE SYSTEM Atrial Rate 51 BPM MUSE SYSTEM P-R Interval 186 ms MUSE SYSTEM QRS Duration 82 ms MUSE SYSTEM Q-T Interval 546 ms MUSE SYSTEM QTC Calculated (Bezet) 503 ms MUSE SYSTEM Calculated P [place] 18 degrees MUSE SYSTEM Calculated R [place] 52 degrees MUSE SYSTEM Calculated T [place] 13 degrees MUSE SYSTEM INTERPRETATION Sinus bradycardia [...] 4:12 AM EDT) Neutrophils % 45.2 % [facility] Neutr Abs (ANC) 2.73 1.70 - 6.10 x10(3)/mc L [facility] Lymphocytes % 34.8 % [facility] Lymphocytes Abs 2.1 0.9 - 3.2 x10(3)/mc L [facility] Monocytes % 10.1 % [facility] Monocyte Abs 0.6 0.3 - 0.9 x10(3)/mc L [facility] Eosinophils % 8.9 % [facility] Eosinophils Abs 0.5(H) 0.0 - 0.4 x10(3)/[facility] Basophils % 0.8 % [facility] Basophils Abs 0.0 0.0 - 0.1 x10(3)/[facility] LABORATORY Immature Gran % 0.20 % [facility] Comment: Immature granulocytes(IG's)percentage and absolute count will include metamyelocytes, myelocytes, and promyelocytes. Blood smears from CBCs yielding IG's will be scanned manually for concordance. If this scan disagrees with the automated IG or if promyelocytes are noted, a manual differential will be performed. Shonda Gran Abs 0.01 0.00 - 0.04 x10(3)/[facility] LABORATORY Blood specimen (specimen) 08/31/2019 4:12 AM EDT 08/31/2019 4:29 AM EDT Narrative Resulting Agency Comment Spec In Lab [place] SANDRA HEMATOLOGY ORDERABLE S [facility] [place] [address] * (ABNORMAL) Hemogram (08/31/2019 4:12 AM EDT) WBC 6.0 4.0 - 9.5 x10(3)/[facility] LABORATORY RBC 5.08 4.00 - 5.21 x10(6)/[facility] LABORATORY Hemoglobin 15.7(H) 11.7 - 15.5 gm/dL [facility] Hematocrit 47.0(H) 35.7 - 45.8 % [facility] MCV 92.5 82.6 - 94.4 fL [facility] MCH 30.9 27.1 - 32.0 pg [facility] MCHC 33.4 31.7 - 35.0 gm/dL [facility] Platelets 255 145 - 357 x10(3)/[facility] LABORATORY RDWSD 45.3 37.0 - 46.0 fL [facility] RDWCV 13.2 11.5 - 14.1 % [facility] MPV 11.4 7.6 - 12.9 [facility] LABORATORY nRBC % Auto 0.0 % [facility] nRBC Abs Auto 0.000 0.000 - 0.000 x10(3)/[facility] LABORATORY Blood specimen (specimen) 08/31/2019 4:12 AM EDT 08/31/2019 4:29 AM EDT Narrative Resulting Agency Comment Spec In Lab [place] SANDRA HEMATOLOGY ORDERABLE S Performing Organization Address City/[facility]/ZIP Co de Phone Number [facility] [place] [address] * Magnesium (08/31/2019 4:12 AM EDT) Magnesium 0.92 0.69 - 1.07 mmol/L [facility] Blood specimen (specimen) 08/31/2019 4:12 AM EDT 08/31/2019 4:29 AM EDT Narrative Resulting Agency Comment Spec In Lab Manish Benitez MD CHEMISTRY ORDERABL ES Performing Organization Address City/[facility]/ZIP Co de Phone Number [facility] [place] [address] * (ABNORMAL) BMP w/fasting Glucose (08/31/2019 4:12 AM EDT) Glucose Fasting 91 65 - 99 mg/dL [facility] [...] of Diabetes Mellitus, Position Statement from the [place] Diabetes [employer]. ??Diabetes Care, Volume 33, Supplement 1, Mar 2009 BUN 21(H) 8 - 18 mg/dL [facility] Creatinine 0.91 0.70 - 1.20 mg/dL [facility] Sodium 136 135 - 145 mmol/L [facility] Potassium 4.2 3.5 - 5.0 mmol/L [facility] Comment: Please note: ??Patients with WBC >100,000 may have falsely elevated Potassium levels. ??For accurate Potassium quantification in these patients send serum separator tube (gold top) for subsequent determinations. ??Contact the Clinical Chemistry Laboratory if there are any questions. Chloride 105 98 - 107 mmol/L [facility] CO2 18(L) 22 - 31 mmol/L [facility] Anion Gap 13 5 - 15 mmol/L [facility] Calcium 9.4 8.5 - 10.5 mg/dL [facility] Estimated GFR 74 >=60 mL/min/1. 73 m?? [facility] Comment: The eGFR was calculated using the CKD-EPI equation. As with all creatinine based estimates of kidney function, eGFR values calculated with the CKD-EPI equation are not accurate in patients with acute kidney failure, extremes of body mass or the acutely ill. http://[employer]/[facility] eGFR 85 >=60 mL/min/1. 73 m?? [facility] Comment: The eGFR was calculated using the CKD-EPI equation. As with all creatinine based estimates of kidney function, eGFR values calculated with the CKD-EPI equation are not accurate in patients with acute kidney failure, extremes of body mass or the acutely ill. http://[employer]/[facility] Blood specimen (specimen) 08/31/2019 4:12 AM EDT 08/31/2019 4:29 AM EDT Narrative Resulting Agency Comment Spec In Lab Manish Benitez MD CHEMISTRY ORDERABL ES Performing Organization Address [place]/State/ZIP Co de Phone Number [facility] [place] [address] * CARDIAC CATHETERIZATION (08/30/2019 2:40 PM EDT) Anatomical Region Laterality Modality Other Narrative 08/30/2019 2:59 PM EDT ?[facility] ? Cardiac Catheterization/Intervention Report ? Patient Name: Neisha, Loida ? Procedure Date: 08/30/2019 ? A #: [id number] ? Primary Physician: Kira, Jessee T ? Case #: [id number] ? File Name: [id number] ? Catheterization Order Number: [id number] ? [facility] [facility] ? Final Report [place], [place] ? Patient Name: ? Loida Neisha ? ID#: ?[id number] ? : ?1970 ? Procedure Date: ? [...] was Urgent. The indication for ?the laboratory engineer visit is ACS less than or equal [...] Procedure Note Jessee Malone MD - 08/30/2019 [facility] Cardiac Catheterization/Intervention Report Patient Name: Loida Roque Procedure Date: 08/30/2019 A #: [id number] Primary Physician: Jessee Malone Case #: [id number] File Name: [id number] Catheterization Order Number: [id number] [facility] FinalReport [place], [place] Patient Name: Loida Roque ID#:[id number] :1970 Procedure Date: August 30, 2019 Case [...] was designated as ASA Class III. The [facility] clinical frailtyscale is 2: Well. Diagnostic Tests: Prior Coronary Angiography: LV ejection fraction within 6 months is 65%. Medications Prior to Procedure: Aspirin. Indications for Diagnostic Cath: The priority of the diagnostic procedure was Urgent. The indicationfor the laboratory engineer visit is ACS less than or equal [...] ?NEISHA LOIDA ?(Age): 1970(49y) Med Rec#: ? [id number] ?Sex: ?F ? Site Loc: ? [facility] ?Ht / Wt: ??163(cm)/94(kg) Pt. Loc: ?Adult Floor ? BSA: ?1.99 Study Date: ?? 08/30/2019 ?Pt. Type: Inpatient Tape: ? Referring: POOJA IYER J Reading: Jose Chambers ([id number]) Acoustic Sensor Operator: Jaspreet Oneil [facility] Interpreting Fellow: Poncho Yates ([id number]) Diagnosis: *Non-ST elevation (NSTEMI) myocardial infarction (I21.4) [...] Vmax ?0.35 ? m/sec ? MV deceleration [id number] ?msec ? MV A-wave Vmax ?0.25 ? [...] ? Mid-Inferior ?Normal ? Mid-Inferoseptal ?Normal ? [place]-Septal ? Normal ? [place]-Anterior ? Normal ? [place]-Lateral ?Normal ? [place]-Inferior ? Normal ? [place]-Tip ?Normal ? This report has been electronically signed by: Jose Chambers MD ? 08/30/2019 14:21:57 Images reviewed and interpretation verified [facility] Cardiac Ultrasound Laboratory Procedure Note Jose Chambers MD - 08/30/2019 Procedure: Transthoracic Echocardiogram Patient: NEISHA VÁSQUEZ(Age): 1970(49y) Med Rec#: [id number] Sex: F Site Loc: [facility] Ht / Wt: 163(cm)/94(kg) Pt. Loc: Adult Floor BSA: 1.99 Study Date: 08/30/2019 Pt. Type: Inpatient Tape: Referring: POOJA IYER J Reading: Jose Chambers ([id number]) Acoustic Sensor Operator: Jaspreet Oneil RDCS Interpreting Fellow: Poncho Yates ([id number]) Diagnosis: *Non-ST elevation (NSTEMI) myocardial infarction (I21.4) [...] MV E-wave Vmax 0.35 m/sec MV deceleration [id number] msec MV A-wave Vmax 0.25 m/sec MV [...] Normal Mid-Posterolateral Normal Mid-Inferior Normal Mid-Inferoseptal Normal [place]-Septal Normal [place]-Anterior Normal [place]-Lateral Normal [place]-Inferior Normal [place]-Tip Normal This report has been electronically signed by: Jose Chambers MD 08/30/2019 14:21:57 Images reviewed and interpretation verified [facility] Cardiac Ultrasound Laboratory Manish Benitez MD ECHO ORDERABLES * EKG 12 Lead (08/30/2019 10:28 AM EDT) Ventricular rate 52 BPM MUSE SYSTEM Atrial Rate 52 BPM MUSE SYSTEM P-R Interval 162 ms MUSE SYSTEM QRS Duration 84 ms MUSE SYSTEM Q-T Interval 536 ms MUSE SYSTEM QTC Calculated (Bezet) 498 ms MUSE SYSTEM Calculated P [place] -9 degrees MUSE SYSTEM Calculated R [place] 43 degrees MUSE SYSTEM Calculated T [place] -27 degrees MUSE SYSTEM INTERPRETATION Sinus bradycardia [...] AM EDT) Heparin UFH Level 0.44 IU/mL [facility] Comment: Guidelines for therapeutic unfractionated [...] Lab Manish Benitez MD HEMATOLOGY ORDERAB LES [facility] [place] [address] * (ABNORMAL) Differential, Automated (08/30/2019 2:53 AM EDT) Neutrophils % 52.4 % [facility] Neutr Abs (ANC) 3.85 1.70 - 6.10 x10(3)/ L [facility] Lymphocytes % 29.3 % [facility] Lymphocytes Abs 2.2 0.9 - 3.2 x10(3)/[facility] LABORATORY Monocytes % 9.1 % [facility] Monocyte Abs 0.7 0.3 - 0.9 x10(3)/[facility] LABOR[facility]ORY Eosinophils % 8.6 % [facility] Eosinophils Abs 0.6(H) 0.0 - 0.4 x10(3)/[facility] LABORATORY Basophils % 0.5 % [facility] Basophils Abs 0.0 0.0 - 0.1 x10(3)/[facility] LABORATORY Immature Gran % 0.10 % [facility] Comment: Immature granulocytes(IG's)percentage and absolute count will include metamyelocytes, myelocytes, and promyelocytes. Blood smears from CBCs yielding IG's will be scanned manually for concordance. If this scan disagrees with the automated IG or if promyelocytes are noted, a manual differential will be performed. Shonda Gran Abs 0.01 0.00 - 0.04 x10(3)/[facility] LABORATORY Blood specimen (specimen) 08/30/2019 2:53 AM EDT 08/30/2019 3:01 AM EDT Narrative Resulting Agency Comment Spec In Lab [place] SANDRA HEMATOLOGY ORDERABLE S [facility] [place] [address] * (ABNORMAL) Hemogram (08/30/2019 2:53 AM EDT) WBC 7.4 4.0 - 9.5 x10(3)/[facility] LABORATORY RBC 4.84 4.00 - 5.21 x10(6)/[facility] LABORATORY Hemoglobin 14.8 11.7 - 15.5 gm/dL [facility] Hematocrit 44.8 35.7 - 45.8 % [facility] MCV 92.6 82.6 - 94.4 [facility]ORY MCH 30.6 27.1 - 32.0 pg [facility] MCHC 33.0 31.7 - 35.0 gm/dL [facility] Platelets 272 145 - 357 x10(3)/[facility] LABORATORY RDWSD 46.2(H) 37.0 - 46.0 [facility]ORY RDWCV 13.5 11.5 - 14.1 % [facility] MPV 10.9 7.6 - 12.9 [facility] nRBC % Auto 0.0 % [facility] nRBC Abs Auto 0.000 0.000 - 0.000 x10(3)/[facility] Blood specimen (specimen) 08/30/2019 2:53 AM EDT 08/30/2019 3:01 AM EDT Narrative Resulting Agency Comment Spec In Lab [place] SANDRA HEMATOLOGY ORDERABLE S [facility] [place] [address] * Magnesium (08/30/2019 2:53 AM EDT) Magnesium 0.90 0.69 - 1.07 mmol/L [facility] Blood specimen (specimen) 08/30/2019 2:53 AM EDT 08/30/2019 3:01 AM EDT Narrative Resulting Agency Comment Spec In Lab Manish Benitez MD CHEMISTRY ORDERABL ES [facility] [place] [address] * (ABNORMAL) BMP w/fasting Glucose (08/30/2019 2:53 AM EDT) Glucose Fasting 102(H) 65 - 99 mg/dL [facility] [...] of Diabetes Mellitus, Position Statement from the [place] Diabetes [employer]. ??Diabetes Care, Volume 33, Supplement 1, Mar 2009 BUN 18 8 - 18 mg/dL [facility] Creatinine 1.09 0.70 - 1.20 mg/dL [facility] [...] questions. Chloride 103 98 - 107 mmol/L [facility] CO2 19(L) 22 - 31 mmol/L [facility] Anion Gap 17(H) 5 - 15 mmol/L [facility] Calcium 9.0 8.5 - 10.5 mg/dL [facility] Estimated GFR 59(L) >=60 mL/min/1. 73 m?? [facility] Comment: The eGFR was calculated using the CKD-EPI equation. As with all creatinine based estimates of kidney function, eGFR values calculated with the CKD-EPI equation are not accurate in patients with acute kidney failure, extremes of body mass or the acutely ill. http://[employer]/[facility] eGFR 69 >=60 mL/min/1. 73 m?? [facility] Comment: The eGFR was calculated using the CKD-EPI equation. As with all creatinine based estimates of kidney function, eGFR values calculated with the CKD-EPI equation are not accurate in patients with acute kidney failure, extremes of body mass or the acutely ill. http://[employer]/DHnkf Blood specimen (specimen) 08/30/2019 2:53 AM EDT 08/30/2019 3:01 AM EDT Narrative Resulting Agency Comment Spec In Lab Manish Benitez MD CHEMISTRY ORDERABL ES Performing Organization Address [place]/[facility] Co de Phone Number [facility] [place] [place] [address] * Triglyceride (08/30/2019 2:53 AM EDT) Triglycerides 203 mg/dL [facility] Comment: Average Risk/Lower Risk: <150 mg/dL Borderline High Risk: 150-199 mg/dL High Risk: 200-499 mg/dL Very High Risk: >un=784 mg/dL Blood specimen (specimen) 08/30/2019 2:53 AM EDT 08/30/2019 3:01 AM EDT Narrative Resulting Agency Comment Spec In Lab Manish Benitez MD CHEMISTRY ORDERABL ES [facility] [place] [place] [address] * HDL/Cholesterol Profile (08/30/2019 2:53 AM EDT) Chol, Total 220 mg/dL [facility] Comment: Lower Risk: <200 mg/dL Average Risk: 200-239 mg/dL Higher Risk: >vk=795 mg/dL HDL 34 mg/dL [facility] Comment: Males: ?? Higher Risk: <40 mg/dL Females: ?? HIgher Risk: <50 mg/dL Chol/HDL Ratio 6.5 ratio [facility] Chol/HDL Interpretation See Note [facility] Comment: Lipid management should be guided by a patient? s ASCVD risk, goals and preferences. ACC/AHA Guidelines recommend high intensity statin if clinical ASCVD or LDL greater than or equal to 190 mg/dL. [email or web address]-MZL-[email or web address] Measure LDL if Total Cholesterol minus HDL Cholesterol is greater than 220 mg/dL. Adults aged 40-75 with LDL 70-189 mg/dL should have their 10 year ASCVD risk estimated with the ACC/AHA ASCVD risk lumber estimator http://tools.acc.org/PQJTI-Ofun-Fbhzoctia/ Statin should be discussed if risk greater [...] Lab Manish Benitez MD CHEMISTRY ORDERABL ES [facility] [place] [address] * LDL Cholesterol, Direct (08/30/2019 2:53 AM EDT) LDL Chol Direct 165 mg/dL [facility] Comment: Lowest Risk: <100 mg/dL Lower Risk: 100-129 mg/dL Borderline High Risk: 130-159 mg/dL High Risk: 160-189 mg/dL Very High Risk: >rc=727 mg/dL Blood specimen (specimen) 08/30/2019 2:53 AM EDT 08/30/2019 3:01 AM EDT Narrative Resulting Agency Comment Spec In Lab Manish Benitez MD CHEMISTRY ORDERABL ES [facility] [place] [place] [address] * Hemoglobin A1c (08/30/2019 2:53 AM EDT) Hemoglobin A1C 5.4 4.3 - 5.6 % [facility] [...] 1, S67-74 Est Avg Gluc 108 mg/dL [facility] Comment: eAG [...] into estimated average glucose values. ??Diabetes Care 2008:31(8):5790-0759. Blood specimen (specimen) 08/30/2019 2:53 AM EDT 08/30/2019 3:01 AM EDT Narrative Resulting Agency Comment Spec In Lab Manish Benitez MD CHEMISTRY ORDERABL ES Performing Organization Address [place]/[facility] Co de Phone Number [facility] [place] [address] * CK (08/30/2019 2:53 AM EDT) [facility] CK, Total 82 0 - 160 unit/L [facility] Blood specimen (specimen) 08/30/2019 2:53 AM EDT 08/30/2019 3:01 AM EDT Narrative Resulting Agency Comment Spec In Lab Manish Benitez MD CHEMISTRY ORDERABL ES Performing Organization Address [facility] de Phone Number [facility] [place] [address] * Troponin (08/30/2019 2:53 AM EDT) [facility] Troponin-T <0.01 0.00 - 0.00 ng/mL [facility] Comment: The 99th percentile for Troponin T is less than 0.01 ng/mL, any detectable cTnT concentration using this assay should be considered elevated. According to the third universal definition of myocardial infarction the following criteria with a clinical presentation consistent with acute myocardial ischemia meets the diagnosis for a myocardial infarction ([place]). Detection of a rise and/or fall of cTnT, with at least one value greater than the 99th percentile (> or = 0.01) and with at least one of the following ?? Symptoms of ischemia ?? New or presumed new significant IJ-dynnsur-Y wave (ST-T) changes or new left bundle [...] additional sample may be indicated. Reference: Third Thompson Definition of Myocardial Infarction. Journal of the [place] College [employer] 2012;60:1581-98 Blood specimen (specimen) 08/30/2019 2:53 AM EDT 08/30/2019 3:01 AM EDT Narrative Resulting Agency Comment Spec In Lab Manish Benitez MD CHEMISTRY ORDERABL ES [facility] [place] [address] * (ABNORMAL) Differential, Automated (08/29/2019 8:30 PM EDT) Neutrophils % 56.5 % [facility] Neutr Abs (ANC) 3.58 1.70 - 6.10 x10(3)/mc L [facility] Lymphocytes % 25.9 % [facility] Lymphocytes Abs 1.6 0.9 - 3.2 x10(3)/mc L [facility] Monocytes % 8.8 % [facility] Monocyte Abs 0.6 0.3 - 0.9 x10(3)/mc L [facility] Eosinophils % 7.7 % [facility] Eosinophils Abs 0.5(H) 0.0 - 0.4 x10(3)/mc L [facility] Basophils % 0.8 % [facility] Basophils Abs 0.0 0.0 - 0.1 x10(3)/mc L [facility] Immature Gran % 0.30 % [facility] Comment: Immature granulocytes(IG's)percentage and absolute count will include metamyelocytes, myelocytes, and promyelocytes. Blood smears from CBCs yielding IG's will be scanned manually for concordance. If this scan disagrees with the automated IG or if promyelocytes are noted, a manual differential will be performed. Shonda Gran Abs 0.02 0.00 - 0.04 x10(3)/ L [facility] Blood specimen (specimen) 08/29/2019 8:30 PM EDT 08/29/2019 9:11 PM EDT Narrative Resulting Agency Comment Spec In Lab Abeba SANDRA HEMATOLOGY ORDERABLE S [facility] [place] [address] * (ABNORMAL) Hemogram (08/29/2019 8:30 PM EDT) WBC 6.3 4.0 - 9.5 x10(3)/[facility] RBC 5.03 4.00 - 5.21 x10(6)/[facility] Hemoglobin 15.3 11.7 - 15.5 gm/dL [facility] Hematocrit 46.4(H) 35.7 - 45.8 % [facility] MCV 92.2 82.6 - 94.4 [facility] MCH 30.4 27.1 - 32.0 pg [facility] MCHC 33.0 31.7 - 35.0 gm/dL [facility] Platelets 267 145 - 357 x10(3)/[facility] RDWSD 46.4(H) 37.0 - 46.0 [facility] RDWCV 13.6 11.5 - 14.1 % [facility] MPV 11.3 7.6 - 12.9 [facility] nRBC % Auto 0.0 % [facility] nRBC Abs Auto 0.000 0.000 - 0.000 x10(3)/[facility] Blood specimen (specimen) 08/29/2019 8:30 PM EDT 08/29/2019 9:11 PM EDT Narrative Resulting Agency Comment Spec In Lab Abeba SANDRA HEMATOLOGY ORDERABLE S Performing Organization Address [place]/[facility] Co de Phone Number [facility] [place] [address] * Heparin (unfractionated) Level (08/29/2019 8:30 PM EDT) Pathologist [facility] Heparin UFH Level 0.46 IU/mL [facility] Comment: Guidelines for therapeutic unfractionated [...] Lab Manish Benitez MD HEMATOLOGY ORDERAB LES [facility] [place] [place] [address] * CK (08/29/2019 8:30 PM EDT) Pathologist [facility] CK, Total 94 0 - 160 unit/L [facility] Blood specimen (specimen) 08/29/2019 8:30 PM EDT 08/29/2019 9:11 PM EDT Narrative Resulting Agency Comment Spec In Lab Manish Benitez MD CHEMISTRY ORDERABL ES Performing Organization Address [place]/[facility] Co de Phone Number [facility] [place] [address] * Troponin (08/29/2019 8:30 PM EDT) Troponin-T <0.01 0.00 - 0.00 ng/mL [facility] Comment: The 99th percentile for Troponin T is less than 0.01 ng/mL, any detectable cTnT concentration using this assay should be considered elevated. According to the third universal definition of myocardial infarction the following criteria with a clinical presentation consistent with acute myocardial ischemia meets the diagnosis for a myocardial infarction ([place]). Detection of a rise and/or fall of cTnT, with at least one value greater than the 99th percentile (> or = 0.01) and with at least one of the following ?? Symptoms of ischemia ?? New or presumed new significant LA-xqmrjjx-Q wave (ST-T) changes or new left bundle [...] additional sample may be indicated. Reference: Third Thompson Definition of Myocardial Infarction. Journal of the [place] College [employer]iology 2012;60:1581-98 Blood specimen (specimen) 08/29/2019 8:30 PM EDT 08/29/2019 9:11 PM EDT Narrative Resulting Agency Comment Spec In Lab Manish Benitez MD CHEMISTRY ORDERABL ES Performing Organization Address [place]/[facility] Co de Phone Number [facility] [place] [address] * EKG 12 Lead (08/29/2019 4:19 PM EDT) Ventricular rate 67 BPM MUSE SYSTEM Atrial Rate 67 BPM MUSE SYSTEM P-R Interval 164 ms MUSE SYSTEM QRS Duration 80 ms MUSE SYSTEM Q-T Interval 478 ms MUSE SYSTEM QTC Calculated (Bezet) 505 ms MUSE SYSTEM Calculated P [place] 34 degrees MUSE SYSTEM Calculated R [place] 30 degrees MUSE SYSTEM Calculated T [place] -29 degrees MUSE SYSTEM INTERPRETATION Demand pacemaker; [...] 3:10 PM EDT) Neutrophils % 58.3 % [facility] Neutr Abs (ANC) 3.79 1.70 - 6.10 x10(3)/ L [facility] Lymphocytes % 22.7 % [facility] Lymphocytes Abs 1.5 0.9 - 3.2 x10(3)/[facility] Monocytes % 10.3 % [facility] Monocyte Abs 0.7 0.3 - 0.9 x10(3)/ L [facility] Eosinophils % 7.8 % [facility] Eosinophils Abs 0.5(H) 0.0 - 0.4 x10(3)/ L [facility] Basophils % 0.6 % [facility] Basophils Abs 0.0 0.0 - 0.1 x10(3)/ L [facility] Immature Gran % 0.30 % [facility] Comment: Immature granulocytes(IG's)percentage and absolute count will include metamyelocytes, myelocytes, and promyelocytes. Blood smears from CBCs yielding IG's will be scanned manually for concordance. If this scan disagrees with the automated IG or if promyelocytes are noted, a manual differential will be performed. Shonda Gran Abs 0.02 0.00 - 0.04 x10(3)/mc L [facility] Blood specimen (specimen) 08/29/2019 3:10 PM EDT 08/29/2019 3:50 PM EDT Narrative Resulting Agency Comment Spec In Lab Abeba SANDRA HEMATOLOGY ORDERABLE S [facility] [place] [address] * (ABNORMAL) Hemogram (08/29/2019 3:10 PM EDT) WBC 6.5 4.0 - 9.5 x10(3)/[facility] RBC 4.69 4.00 - 5.21 x10(6)/[facility] Hemoglobin 14.1 11.7 - 15.5 gm/dL [facility] Hematocrit 43.8 35.7 - 45.8 % [facility] MCV 93.4 82.6 - 94.4 [facility] MCH 30.1 27.1 - 32.0 pg [facility] MCHC 32.2 31.7 - 35.0 gm/dL [facility] Platelets 235 145 - 357 x10(3)/[facility] RDWSD 47.2(H) 37.0 - 46.0 [facility] RDWCV 13.7 11.5 - 14.1 % [facility] MPV 11.5 7.6 - 12.9 [facility] nRBC % Auto 0.0 % [facility] nRBC Abs Auto 0.000 0.000 - 0.000 x10(3)/[facility] Blood specimen (specimen) 08/29/2019 3:10 PM EDT 08/29/2019 3:50 PM EDT Narrative Resulting Agency Comment Spec In Lab Abeba SANDRA HEMATOLOGY ORDERABLE S Performing Organization Address [place]/[facility]/ZIP Co de Phone Number [facility] [place] [address] * Hepatic Function Panel (08/29/2019 3:10 PM EDT) [facility] Total Protein 7.1 6.1 - 8.0 gm/dL [facility] Albumin 4.0 3.2 - 5.2 gm/dL [facility] AST 25 0 - 30 unit/L [facility] ALT 19 0 - 30 unit/L [facility] Alk Phos 49 35 - 105 unit/L [facility] Total Bilirubin 0.7 0.2 - 1.3 mg/dL [facility] Bili, Direct 0.1 0.0 - 0.3 mg/dL [facility] Blood specimen (specimen) 08/29/2019 3:10 PM EDT 08/29/2019 3:52 PM EDT Narrative Resulting Agency Comment Spec In Lab Manish Benitez MD CHEMISTRY ORDERABL ES Performing Organization Address [place]/[facility] Co de Phone Number [facility] [place] [address] * TSH (08/29/2019 3:10 PM EDT) [facility] TSH 1.87 0.27 - 4.20 mcIU/mL [facility] Blood specimen (specimen) 08/29/2019 3:10 PM EDT 08/29/2019 3:52 PM EDT Narrative Resulting Agency Comment Spec In Lab Manish Benitez MD CHEMISTRY ORDERABL ES Performing Organization Address [place]/[facility]/ZIP Co de Phone Number [facility] [place] [address] * (ABNORMAL) pro-Brain Natriuretic Peptide (08/29/2019 3:10 PM EDT) [facility] ProBNP 1,242(H) <=125 pg/mL [facility] Blood specimen (specimen) 08/29/2019 3:10 PM EDT 08/29/2019 3:52 PM EDT Narrative Resulting Agency Comment Spec In Lab Manish Benitez MD CHEMISTRY ORDERABL ES Performing Organization Address [place]/[facility]/ZIP Co de Phone Number [facility] [place] [address] * CK (08/29/2019 3:10 PM EDT) [facility] CK, Total 96 0 - 160 unit/L [facility] Blood specimen (specimen) 08/29/2019 3:10 PM EDT 08/29/2019 3:52 PM EDT Narrative Resulting Agency Comment Spec In Lab Manish Benitez MD CHEMISTRY ORDERABL ES Performing Organization Address [place]/[facility] Co de Phone Number [facility] [place] [address] * Troponin (08/29/2019 3:10 PM EDT) [facility] Troponin-T <0.01 0.00 - 0.00 ng/mL [facility] Comment: The 99th percentile for Troponin T is less than 0.01 ng/mL, any detectable cTnT concentration using this assay should be considered elevated. According to the third universal definition of myocardial infarction the following criteria with a clinical presentation consistent with acute myocardial ischemia meets the diagnosis for a myocardial infarction ([place]). Detection of a rise and/or fall of cTnT, with at least one value greater than the 99th percentile (> or = 0.01) and with at least one of the following ?? Symptoms of ischemia ?? New or presumed new significant LW-gptrllt-D wave (ST-T) changes or new left bundle [...] additional sample may be indicated. Reference: Third Thompson Definition of Myocardial Infarction. Journal of the [place] College [employer]iology 2012;60:1581-98 Blood specimen (specimen) 08/29/2019 3:10 PM EDT 08/29/2019 3:52 PM EDT Narrative Resulting Agency Comment Spec In Lab Manish Benitez MD CHEMISTRY ORDERABL ES Performing Organization Address [facility] de Phone Number [facility] [place] [address] * (ABNORMAL) APTT (08/29/2019 3:10 PM EDT) PTT 132(Criti edy) 25 - 37 sec [facility] Comment: Critical Result [...] MD HEMATOLOGY ORDERAB LES Performing Organization Address [facility] de Phone Number [facility] [place] [address] * (ABNORMAL) Prothrombin Time (08/29/2019 3:10 PM EDT) PT 13.3(H) 9.4 - 12.5 sec [facility] INR 1.2 [facility] Comment: An INR <2.0 [...] Lab Manish Benitez MD HEMATOLOGY ORDERAB LES [facility] [place] [address] * (ABNORMAL) Basic Metabolic Panel (non-fasting) (08/29/2019 3:10 PM EDT) Glucose Lvl 83 65 - 199 mg/dL [facility] Comment:Diabetes: >=200 mg/d L plus symptoms BUN 15 8 - 18 mg/dL [facility] Creatinine 0.84 0.70 - 1.20 mg/dL [facility] Sodium 138 135 - 145 mmol/L [facility] Potassium 4.2 3.5 - 5.0 mmol/L [facility] Comment: Please note: ??Patients with WBC >100,000 may have falsely elevated Potassium levels. ??For accurate Potassium quantification in these patients send serum separator tube (gold top) for subsequent determinations. ??Contact the Clinical Chemistry Laboratory if there are any questions. Chloride 105 98 - 107 mmol/L [facility] CO2 19(L) 22 - 31 mmol/L [facility] Anion Gap 14 5 - 15 mmol/L [facility] Calcium 9.2 8.5 - 10.5 mg/dL [facility] Estimated GFR 81 >=60 mL/min/1. 73 m?? [facility] Comment: The eGFR was calculated using the CKD-EPI equation. As with all creatinine based estimates of kidney function, eGFR values calculated with the CKD-EPI equation are not accurate in patients with acute kidney failure, extremes of body mass or the acutely ill. http://[employer]/DHnkf eGFR 94 >=60 mL/min/1. 73 m?? [facility] Comment: The eGFR was calculated using the CKD-EPI equation. As with all creatinine based estimates of kidney function, eGFR values calculated with the CKD-EPI equation are not accurate in patients with acute kidney failure, extremes of body mass or the acutely ill. http://[employer]/DHMCnkf Blood specimen (specimen) 08/29/2019 3:10 PM EDT 08/29/2019 3:52 PM EDT Narrative Resulting Agency Comment Spec In Lab Manish Benitez MD CHEMISTRY ORDERABL ES [facility] [place] [address] documented in this encounter Visit Diagnoses Not [...] (Given - Provider: Mark Nick RN) 1357 ([facility] Hold - Provider: Admin Adt - Reason: Transfer to a Procedural area)1530 ([facility] Unhold - Provider: Admin Adt) clopidogreL (Plavix) tablet 75 mg (CANCELED) 75 mg, Oral, DAILY, First dose on Wed08/30/19 at 0900, Until Discontinued, Routine 0842 (Given - Provider: Mark Nick RN)1357 ([facility] Hold - Provider: Admin Adt - Reason: Transfer to a Procedural area)1530 ([facility] Unhold - Provider: Admin Adt) DULoxetine DR (Cymbalta) capsule 60 mg 60 mg, Oral, NIGHTLY, First dose on Wed08/29/19 at 2100, Until Discontinued, Routine 2047 (Given - Provider: Efrain Verma RN) 1357 ([facility] Hold - Provider: Admin Adt - Reason: Transfer to a Procedural area)153 ([facility] Unhold - Provider: Admin Adt)2029 (Given - [...] 0842 (Given - Provider: Mark Nick RN)1357 ([facility] Hold - Provider: Admin Adt - Reason: Transfer to a Procedural area)153 ([facility] Unhold - Provider: Admin Adt)2029 (Given - [...] UA) documented in this encounter Care Teams Inventory Associate And Driver Relationship Specialty Start Date End Date Tim Rogers DNP PCP - General Family Medicine 08/28/19 06/08/21 documented as of this encounter
--- OUTSIDE RECORDS SUMMARY | 2023-09-20 18:41 | XMS_ITS | Encounter Summary ---
Author Organization [facility] Address [address] [place] [address] Care Team Providers Care French Weaver Name Role Phone Unavailable Primary Care Provider Unavailabl e Encounter Details Date Type Department Care Team (Late st Contact Info) Description 01/02/2000 Results Only [facility] conversion [address] [place] [address] Channing Brand MD [address] [place] [address] Social History Tobacco Use Types [...] ? LOIDA ROQUE ? Accession #: ? [id number] : ? 1970 (Age: 29) ??F ?Collect [...] Brand MD PATHOLOGY ORDERABLES [facility] [address] [place] [address] documented in this encounter Visit Diagnoses Not on filedocumented in this encounter
--- OUTSIDE RECORDS SUMMARY | 2023-09-20 18:41 | XMS_ITS | Encounter Summary ---
Author Organization [facility] [place] [address] Care Team Providers Care Ring Sewer Name Role Phone Dustin Nino MD Primary Care Provider [phone] Encounter Details Date Type Department Care Team (Late st Contact Info) Description 06/19/2010 [place] [address] Lashonda York MD [facility] DR [place] [address] Social History Tobacco Use Types Packs/Day Years [...] AM EDT Tech [place] [address] Jose Cook 10/08/2023 9:30 AM EDT Office Visit [place] [address] MD [facility] [place] [address] 10/21/2023 10:30 AM EDT Appointment [place] [address] Mary Reyes [facility] [place] [address] 10/21/2023 11:30 AM EDT Appointment [place] [address] Mary Reyes [facility] [place] [address] 10/21/2023 12:30 PM EDT Appointment [place] [address] Mary Reyes [facility] [place] [address] 10/21/2023 1:30 PM EDT Appointment [place] [address] Mary Reyes [facility] [place] [address] 10/21/2023 2:30 PM EDT Appointment [place] [address] Mary Reyes [facility] [place] [address] 10/26/2023 4:00 PM EDT Office Visit Cardiology at [address] [address] Jaspreet Kinsey MD [facility] [place] [address] 10/28/2023 9:00 AM EDT Office Visit [place] [address] 10/29/2023 10:00 AM EDT Clinical Support [place] [address] 10/29/2023 10:15 AM EDT Procedure visit [place] [address] 11/01/2023 5:00 PM EDT Office Visit [place] [address] Selene Browning, PhD [facility] [place] [address] 11/22/2023 4:40 PM EDT Office Visit Cardiology at [address] [address] Porsha Mcdaniels MD [facility] [place] [address] 12/13/2023 10:00 AM EDT Clinical Support [place] [address] Lucero Romero, ALVA [facility] [place] [address] documented as of this encounter Visit Diagnoses Not on filedocumented in this encounter Care Teams Ring Sewer Relationship Specialty Start Date End Date Dustin Nino MD [facility] [address] [place] [address] PCP - General 06/11/10 08/27/19 documented as of this encounter
--- OUTSIDE RECORDS SUMMARY | 2023-09-20 18:41 | XMS_ITS | Encounter Summary ---
Author Organization [facility] Address [address] [place] [address] Care Team Providers Care Director Of Neurology Name Role Phone Unavailable Primary Care Provider Unavailabl e Encounter Details Date Type Department Care Team (Late st Contact Info) Description 01/19/2000 Results Only [facility] conversion [address] [place] [address] Channing Brand MD [address] [place] [address] Social History Tobacco Use Types [...] ? LOIDA ROQUE ? Accession #: ? [id number] ? : ? 1970 (Age: 29) ??F [...] reviewed and electronically signed by: Gerald Nino [facility] Report ??Date: 01/22/2000 16:44 By the signature above, the attending physician certifies that he/she has personally conducted a gross and/or microscopic examination of the described specimens and rendered or confirmed the above diagnosis. Specimen(s) Received: A. ?L pelvic sidewall (#1) B. ?Uterus (#2) Clinical History: ? Pelvic pain; adhesions Gross Description: ? Received in formalin labelled Stevan and #1. L pelvic sidewall is a [...] a discernible squamocolumnar junction. BLOCK RHODES B1,B2 ?Tile And Marble Installer section of anterior endomyometrium B3 ?Possible myomatous nodule from the anterior half of the specimen B4 ?Tile And Marble Installer section of posterior endomyometrium B5 ?Tile And Marble Installer section of posterior endo- and ectocervix B6 ?Anterior endo- and ectocervix (Dr. Garcia)/[facility] End of Report [facility] 01/19/2000 01/20/2000 14: 59 EST Channing Brand MD PATHOLOGY ORDERABLES [facility] [address] [place] [address] documented in this encounter Visit Diagnoses Not on filedocumented in this encounter
--- OUTSIDE RECORDS SUMMARY | 2023-09-20 18:41 | XMS_ITS | Referral Summary ---
Author Organization [facility] Address [address] [place] [address] Care Team Providers Care Swing Grinder Name Role Phone Unknown, Provider Primary Care Provider [phone] Social History Tobacco Use Types Packs/Day Years [...] C Antibody Negative Negative 05/20/2020 11:15 EDT [facility] Blood VENOUS BLOOD / Unknown 05/17/2020 14:00 EST 05/19/2020 16:37 EDT Provider Outr Resulting Lab CHEMISTRY & BLOOD GAS ORDERABLES [facility] [address] [place] [address] from Last 3 Months or Most Recently Relevant to Health Maintenance Care Teams Swing Grinder Relationship Specialty Start Date End Date Unknown, Provider, PCP - General 01/28/10
--- OUTSIDE RECORDS SUMMARY | 2023-09-20 18:41 | XMS_ITS | Encounter Summary ---
Author Organization [facility] Address [address] [place] [address] Care Team Providers Care Rn Hematology Name Role Phone Unknown, Provider Primary Care Provider Encounter Details Date Type Department Care Team (Late st Contact Info) Description 05/18/2020 Lab Requisition [facility] Pathology & Laboratory Medicine - [address] [address] Outr Resulting Lab, Provider Social History Tobacco [...] C Antibody Negative Negative 05/20/2020 11:15 EDT [facility] Blood VENOUS BLOOD / Unknown 05/17/2020 14:00 EST 05/19/2020 16:37 EDT Provider Outr Resulting Lab CHEMISTRY & BLOOD GAS ORDERABLES [facility] [address] [place] [address] * CELIAC DISEASE PANEL (05/17/2020 14:00 EST) Tissue Transglutaminase Antibody IGA <1.2 <4.0 U/mL 05/20/2020 13:21 EDT [facility] Comment: A negative result may be due to IgA deficiency and does not rule out celiac disease. ? Negative: ??<4.0 U/mL ? Weak Positive: ??4.0 - 10.0 U/mL ? Positive: ??>10.0 U/mL Results were obtained with the Hello MarketA Lite R h-tTG IgA VAIBHAV assay on the STEERadsX. IgA 283 85 - 499 mg/dL 05/20/2020 13:21 EDT [facility] Celiac Disease Interpretation Negative Serology. Celiac disease unlikely. Approximately 10% of patients with celiac disease are seronegative. Patients who are already adhering to a gluten-free diet may also be seronegative. If celiac disease is highly clinically suspected, referral to gastroenterology for additional evaluation is recommended. 05/20/2020 13:21 EDT [facility] Blood VENOUS BLOOD / Unknown 05/17/2020 14:00 EST 05/19/2020 16:27 EDT Provider Outr Resulting Lab IMMUNOLOGY A ND SEROLOGY ORDERABLES Performing Organization Address City/State/[facility] Co de Phone Number [facility] [address] [place] [address] documented in this encounter Visit Diagnoses Not on filedocumented in this encounter Care Teams Rn Hematology Relationship Specialty Start Date End Date Unknown, Provider, PCP - General 01/28/10 documented as of this encounter
--- OUTSIDE RECORDS SUMMARY | 2023-09-20 18:41 | XMS_ITS | Encounter Summary ---
[place] [address] Care Team Providers Care Defensive Driving Instructor Name Role Phone Tim Rogers DNP Primary Care Provider Encounter Details Date Type Department Care Team (Late st Contact Info) Description 08/28/2019 12:05 AM EDT Ancillary Procedure [place] [phone] Veronica Bello, DIGITAL ACCOUNT COORDINATOR [address] [place] [address] Social History Tobacco Use Types Packs/Day Years [...] AM EDT Tech [place] [address] Jose Cook 10/08/2023 9:30 AM EDT Office [place] [address]-[address] MD [facility] DR VASCULAR SURGERY [place], [place] [address] 10/21/2023 10:30 AM EDT Appointment Nuclear Medicine at [address] Mary Reyes [facility] [place] [address] 10/21/2023 11:30 AM EDT Appointment Nuclear Medicine at [address] Mary Reyes [facility] [place] [address] 10/21/2023 12:30 PM EDT Appointment Nuclear Medicine at [place] [phone] Mary Reyes [facility] [place] [address] 10/21/2023 1:30 PM EDT Appointment Nuclear Medicine at [place] [phone] Mary Reyes [facility] [place] [address] 10/21/2023 2:30 PM EDT Appointment [place] [address] Mary Reyes [facility] [place] [address] 10/26/2023 4:00 PM EDT Office Visit Cardiology at [address] [phone] Jaspreet Kinsey MD [facility] [place] [address] 10/28/2023 9:00 AM EDT Office [place] [address] 10/29/2023 10:00 AM EDT Clinical Support [place] [address] 10/29/2023 10:15 AM EDT Procedure [place] [address] 11/01/2023 5:00 PM EDT Office [place] [address] Selene Browning, PhD [facility] [place] [address] 11/22/2023 4:40 PM EDT Office Visit Cardiology at [address] [address] Porsha Mcdaniels MD [facility] [place] [address] 12/13/2023 10:00 AM EDT Clinical [place] [address] [facility] [place] [address] documented as of this encounter Procedures Procedure Name Priority Date/Time Associated Diagnosis Comments FILM LIBRARY STORAGE ONLY CT CHEST Routine 08/28/2019 12:05 AM EDT documented in this encounter Results * Film Library- Storage Only CT Chest (08/28/2019 12:05 AM EDT) Narrative [facility] - 08/29/2019 1:46 PM EDT This exam is auto-finalizing. It's purpose is for storage only. Veronica Willis Ace DIGITAL ACCOUNT COORDINATOR IMG FILM LIBRARY ORD ERABLES [place], [place] documented in this encounter Visit Diagnoses Not on filedocumented in this encounter Care Teams Defensive Driving Instructor Relationship Specialty Start Date End Date Tim Rogers DNP PCP - General Family Medicine 08/28/19 06/08/21 documented as of this encounter
--- OUTSIDE RECORDS SUMMARY | 2023-09-20 18:41 | XMS_ITS | Encounter Summary ---
Author Organization [facility] [place] [address] Care Team Providers Care Beaver Trapper Name Role Phone Dustin Nino MD Primary Care Provider [phone] Encounter Details Date Type Department Care Team (Late st Contact Info) Description 06/20/2010 [place] [address] Lashonda York MD [facility] DR [place] [address] Social History Tobacco Use Types Packs/Day Years [...] EDT Tech Visit [place] [address] Jose Cook 10/08/2023 9:30 AM EDT Office [place] [address] MD [facility] [place] [address] 10/21/2023 10:30 AM EDT Appointment [place] [address] Mary Reyes [facility] [place] [address] 10/21/2023 11:30 AM EDT Appointment [place] [address] Mary Reyes [facility] [place] [address] 10/21/2023 12:30 PM EDT Appointment [place] [address] Mary Reyes [facility] [place] [address] 10/21/2023 1:30 PM EDT Appointment [place] [address] Mary Reyes [facility] [place] [address] 10/21/2023 2:30 PM EDT Appointment [place] [address] Mary Reyes [facility] [place] [address] 10/26/2023 4:00 PM EDT Office Visit Cardiology at [address] [address] Jaspreet Kinsey MD [facility] [place] [address] 10/28/2023 9:00 AM EDT Office [place] [address] 10/29/2023 10:00 AM EDT Clinical Support [place] [address] 10/29/2023 10:15 AM EDT Procedure [place] [address] 11/01/2023 5:00 PM EDT Office [place] [address] Selene Browning, PhD [facility] [place] [address] 11/22/2023 4:40 PM EDT Office Visit Cardiology at [address] [address] Porsha Mcdaniels MD [facility] [place] [address] 12/13/2023 10:00 AM EDT Clinical [place] [address] Lucero Romero, ALVA [facility] [place] [address] documented as of this encounter Visit Diagnoses Not on filedocumented in this encounter Care Teams Beaver Trapper Relationship Specialty Start Date End Date Dustin Nino MD [facility] [address] [place] [address] PCP - General 06/11/10 08/27/19 documented as of this encounter
--- OUTSIDE RECORDS SUMMARY | 2023-09-20 18:41 | XMS_ITS | Encounter Summary ---
Author Organization [facility] Address [address] [place] [address] Care Team Providers Care Spring Maker Name Role Phone Unknown, Provider Primary Care Provider Encounter Details Date Type Department Care Team (Late st Contact Info) Description 01/07/2021 Lab Requisition [facility] Pathology & Laboratory Medicine - [address] [address] Outr Resulting Lab, Provider Social History Tobacco [...] Priority Date/Time Associated Diagnosis Comments Z[facility]COVID-19 TEST [facility] Today 01/06/2021 14:00 EDT COVID-19 TESTING Routine 01/06/2021 14:0 0 EDT documented in this encounter Results * COVID-19 TEST [facility] PCR (01/06/2021 14:00 EDT) Swab ENTIRE NASOPHARYNX / Unknown 01/06/2021 14:00 EDT 01/07/2021 17:19 EDT Provider Outr Resulting Lab MICROBIOLOGY - GENERAL ORDERABLES [facility] [address] [place] [address] * COVID-19 TESTING (01/06/2021 14:00 EDT) COVID-19 rt-PCR Result Negative Negative 01/08/2021 12:42 EDT [facility] Comment: This test has not [...] was performed using the ric SARS-CoV-2 assay ([employer] on the Ric 6800 System Performing Lab Ric [address] [facility] 01/08/2021 12:42 EDT [facility] Swab 01/06/2021 14:0 0 EDT 01/07/2021 17:19 EDT Provider Outr Resulting Lab MICROBIOLOGY - GENERAL ORDERABLES Performing Organization Address City/State/[facility] Co de Phone Number [facility] [address] [place] [address] documented in this encounter Visit Diagnoses Not on filedocumented in this encounter Care Teams Spring Maker Relationship Specialty Start Date End Date Unknown, Provider, PCP - General 01/28/10 documented as of this encounter
--- OUTSIDE RECORDS SUMMARY | 2023-09-20 18:41 | XMS_ITS | Encounter Summary ---
Author Organization [facility] Address [address] [place] [address] Care Team Providers Care Nurse Case Management Name Role Phone Unknown, Provider Primary Care Provider [phone] Encounter Details Date Type Department Care Team (Late st Contact Info) Description 09/16/2020 Lab Requisition [facility] Pathology & Laboratory Medicine - [address] [address] Outr Resulting Lab, Provider Social History Tobacco [...] IgE 13 <158 IU/mL 09/18/2020 8:45 EDT [facility] Blood VENOUS BLOOD / Unknown 09/16/2020 13:43 EDT 09/16/2020 20:51 EDT Provider Outr Resulting Lab CHEMISTRY & BLOOD GAS ORDERABLES [facility] [address] [place] [address] * EXTRACTABLE NUCLEAR ANTIGEN PANEL (09/16/2020 13:43 EDT) SSA Antibody 1.2 <20.0 Units 09/17/2020 15:28 EDT [facility] Comment: ? Negative: <20.0 Units ? Weak Positive: 20.0 - 39.9 Units ? Moderate Positive: 40.0 - 80.0 Units ? Strong Positive: >80.0 Units Results were obtained with the [employer] - Payments Anytime | Anywhere QUANTA Lite SS-A VAIBHAV. ??SS-A values obtained with different manufacturers' assay methods may not be used interchangeably. ??The magnitude of the reported IgG levels cannot be correlated to an endpoint titer. SSB Antibody 4.9 <20.0 Units 09/17/2020 15:28 [facility] Comment: ? Negative: <20.0 Units ? Weak Positive: 20.0 - 39.9 Units ? Moderate Positive: 40.0 - 80.0 Units ? Strong Positive: >80.0 Units Results were obtained with the Fifty[employer]VA QUANTA Lite SS-B VAIBHAV. ??SS-B values obtained with different manufacturers' assay methods may not be used interchangeably. ??The magnitude of the reported IgG levels cannot be correlated to an endpoint titer. SM (Alcantar) Antibody 3.4 <20.0 Units 09/17/2020 15:28 [facility] Comment: ? Negative: <20.0 Units ? Weak Positive: 20.0 - 39.9 Units ? Moderate Positive: 40.0 - 80.0 Units ? Strong Positive: >80.0 Units Results were obtained with the Fifty100VA QUANTA Lite Sm VAIBHAV. ??Sm values obtained with different manufacturers' assay methods may not be used interchangeably. ??The magnitude of the reported IgG levels cannot be correlated to an endpoint titer. MANAGER EXCHANGE Antibody 1.5 <20.0 Units 09/17/2020 15:28 EDT [facility] Comment: ? Negative: <20.0 Units ? Weak Positive: 20.0 - 39.9 Units ? Moderate Positive: 40.0 - 80.0 Units ? Strong Positive: >80.0 Units Results were obtained with the [employer] Quanta Lite MANAGER EXCHANGE VAIBHAV. MANAGER EXCHANGE values obtained with different glove stitcher's assay methods may not be used interchangeaby. ??The magnitude of the reported IgG levels cannot be be correlated to an endpoint titer. A positive result in the Quanta Lite MANAGER EXCHANGE VAIBHAV indicates the presence of antibodies reactive with the MANAGER EXCHANGE/Sm complex but cannot distinguish between anti-Sm and anti-MANAGER EXCHANGE activity. Blood VENOUS BLOOD / Unknown 09/16/2020 13:43 EDT 09/16/2020 20:51 EDT Provider Outr Resulting Lab IMMUNOLOGY A ND SEROLOGY ORDERABLES Performing Organization Address City/State/[facility] Co de Phone Number [facility] [address] [place] [address] * (ABNORMAL) ANTI NUCLEAR AB (KATHRINE), IFA (09/16/2020 13:43 EDT) KATHRINE Interpretation Positive(A) Negative 09/17/2020 15:08 EDT [facility] Comment: For titers greater than [...] Pattern 1 1:160 Speckled 09/17/2020 15:08 EDT [facility] Blood VENOUS BLOOD / Unknown 09/16/2020 13:43 EDT 09/16/2020 20:51 EDT Narrative [facility] - 09/17/2020 15:08 EDT Results were obtained with the [employer]ais[employer] - Payments Anytime | Anywhere NOVA Lite HEp-2 KATHRINE Kit by indirect immunofluorescence. Provider Outr Resulting Lab IMMUNOLOGY A ND SEROLOGY ORDERABLES [facility] [address] [place] [address] documented in this encounter Visit Diagnoses Not on filedocumented in this encounter Care Teams Nurse Case Management Relationship Specialty Start Date End Date Unknown, Provider, PCP - General 01/28/10 documented as of this encounter"
--- OUTSIDE RECORDS SUMMARY | 2023-09-20 18:41 | XMS_ITS | Encounter Summary ---
Author Organization [facility] [place] [address] Care Team Providers Care Environmental Engineering Intern Name Role Phone Tim Rogers DNP Primary Care Provider Encounter Details Date Type Department Care Team (Late st Contact Info) Description 08/28/2019 Ancillary Procedure [place] [phone] Veronica Bello, VACUUM CLEANER REPAIRER [address] [place], [place] [address] Social History Tobacco Use Types Packs/Day Years [...] AM EDT Tech Visit [place] [address] Jose Cook 10/08/2023 9:30 AM EDT Office Visit [place] [address]-[address] MD [facility] [address] VASCULAR SURGERY [place], [place] [address] 10/21/2023 10:30 AM EDT Appointment Nuclear Medicine at [address]1000 Mary Reyes, [facility] [place] [address] 10/21/2023 11:30 AM EDT Appointment Nuclear Medicine at [address]1000 Mary Reyes [facility] [place] [address] 10/21/2023 12:30 PM EDT Appointment Nuclear Medicine at [place] [phone] Mary Reyes [facility] [place] [address] 10/21/2023 1:30 PM EDT Appointment Nuclear Medicine at [place] [phone] Mary Reyes [facility] [place] [address] 10/21/2023 2:30 PM EDT Appointment Nuclear Medicine at [place] [phone] Mary Reyes [facility] [place] [address] 10/26/2023 4:00 PM EDT Office Visit Cardiology at [address] [place] [phone] Jaspreet Kinsey MD [facility] [place] [address] 10/28/2023 9:00 AM EDT Office [place] [address] 10/29/2023 10:00 AM EDT Clinical [place] [address] 10/29/2023 10:15 AM EDT Procedure [place] [address] 11/01/2023 5:00 PM EDT Office Visit [place] [address] Selene Browning, PhD [facility] [place] [address] 11/22/2023 4:40 PM EDT Office Visit Cardiology at [address] [address] Porsha Mcdaniels MD [facility] [place] [address] 12/13/2023 10:00 AM EDT Clinical Support [place] [address] [facility] [place] [address] documented as of this encounter Procedures Procedure Name Priority Date/Time Associated Diagnosis Comments FILM LIBRARY STORAGE ONLY DX CHEST Routine 08/28/2019 12:00 AM EDT documented in this encounter Results * Film Library- Storage Only DX Chest (08/28/2019 12:00 AM EDT) Narrative [facility] - 08/29/2019 1:45 PM EDT This exam is auto-finalizing. It's purpose is for storage only. Veronica Bello APRN IMG FILM LIBRARY ORD ERABLES [facility] [place], [place] documented in this encounter Visit Diagnoses Not on filedocumented in this encounter Care Teams Environmental Engineering Intern Relationship Specialty Start Date End Date Tim Rogers DNP PCP - General Family Medicine 08/28/19 06/08/21 documented as of this encounter
--- OUTSIDE RECORDS SUMMARY | 2023-09-20 18:41 | XMS_ITS | Encounter Summary ---
Author Organization [facility] Address [address] [place] [address] Care Team Providers Care Shank Cementer Hand Name Role Phone Unknown, Provider Primary Care Provider Encounter Details Date Type Department Care Team (Late st Contact Info) Description 08/28/2019 Lab Requisition [facility] Pathology & Laboratory Medicine - [address] [address] Outr Resulting Lab, Provider Social History Tobacco [...] Outr Resulting Lab MICROBIOLOGY - GENERAL ORDERABLES [facility] [address] [place] [address] * COVID-19 TESTING (08/28/2019 21:50 EDT) COVID-19 rt-PCR Result Negative Negative 08/29/2019 12:31 EDT [facility] Comment: This test [...] history, and epidemiological information. Performed on the Guestyher Fusion instrument Performing Lab [place] Lab 08/29/2019 12:31 EDT [facility] Swab 08/28/2019 21:5 0 EDT 08/29/2019 8:30 EDT Provider Outr Resulting Lab MICROBIOLOGY - GENERAL ORDERABLES [facility] [address] [place] [address] documented in this encounter Visit Diagnoses Not on filedocumented in this encounter Care Teams Shank Cementer Hand Relationship Specialty Start Date End Date Unknown, Provider, PCP - General 01/28/10 documented as of this encounter
--- OUTSIDE RECORDS SUMMARY | 2023-09-20 18:41 | XMS_ITS | Encounter Summary ---
Author Organization [facility] Address [address] [place] [address] Care Team Providers Care Telephone Surveyor Name Role Phone Unknown, Provider Primary Care Provider Encounter Details Date Type Department Care Team (Late st Contact Info) Description 07/27/2022 Lab Requisition [facility] Pathology & Laboratory Medicine - [facility] [address] [place] [address] Outr Resulting Lab, Provider Social History Tobacco [...] Lyme Ab Negative Negative 07/28/2022 10:37 EDT [facility] Blood VENOUS BLOOD / Unknown 07/27/2022 10:39 EDT 07/27/2022 16:45 EDT Provider Outr Resulting Lab IMMUNOLOGY A ND SEROLOGY ORDERABLES [facility] [address] [place] [address] documented in this encounter Visit Diagnoses Not on filedocumented in this encounter Care Teams Telephone Surveyor Relationship Specialty Start Date End Date Unknown, ProviderMD PCP - General 01/28/10 documented as of this encounter
--- OUTSIDE RECORDS SUMMARY | 2023-09-20 18:41 | XMS_ITS | Clinical Summary ---
Author Organization [facility] Address [address] [place] [address] Care Team Providers Care Horse Trekking Guide Name Role Phone Unknown, Provider Primary Care Provider [phone] Social History Tobacco Use Types Packs/Day Years [...] C Antibody Negative Negative 05/20/2020 11:[address] [facility] Blood VENOUS BLOOD / Unknown 05/17/2020 14:00 EST 05/19/2020 16:37 EDT Provider Outr Resulting Lab CHEMISTRY & BLOOD GAS ORDERABLES [facility] [address] [place] [address] from Last 3 Months or Most Recently Relevant to Health Maintenance Care Teams Horse Trekking Guide Relationship Specialty Start Date End Date Unknown, Provider, PCP - General 01/28/10
--- OUTSIDE RECORDS SUMMARY | 2023-09-20 18:41 | XMS_ITS | Encounter Summary ---
Author Organization [facility] Address [address] [place] [address] Care Team Providers Care Risk Compliance Manager Name Role Phone Unknown, Provider Primary Care Provider Encounter Details Date Type Department Care Team (Late st Contact Info) Description 05/18/2020 Lab Requisition [facility] Pathology & Laboratory Medicine - [address] [address] Outr Resulting Lab, Provider Social History Tobacco [...] 4th Generation Negative Negative 05/20/2020 11:35 EDT [facility] Comment: If acute HIV-1 infection is suspected in a high risk ??patient, submit plasma specimen for HIV-1 RNA quantitation test. Fourth Generation assay performed on the Siemens sciencebiteaur. Blood VENOUS BLOOD / Unknown 05/17/2020 14:00 EST 05/19/2020 16:27 EDT Provider Outr Resulting Lab IMMUNOLOGY A ND SEROLOGY ORDERABLES [facility] [address] [place] [address] documented in this encounter Visit Diagnoses Not on filedocumented in this encounter Care Teams Risk Compliance Manager Relationship Specialty Start Date End Date Unknown, Provider, PCP - General 01/28/10 documented as of this encounter
--- OUTSIDE RECORDS SUMMARY | 2023-09-20 18:41 | XMS_ITS | Encounter Summary ---
Author Organization [facility] Address [address] [place] [address] Care Team Providers Care Supervisor Hand Silvering Name Role Phone Unavailable Primary Care Provider Unavailabl e Encounter Details Date Type Department Care Team (Late st Contact Info) Description 01/23/2010 Results Only [facility] Laboratory Services - [facility] ([facility]) [address] [place], [place] [id number] Kylee Vaca MD [address] [place] [address] Social History Tobacco Use Types [...] ? ROHAN, LOIDA ? Accession #: ? [id number] ? : ? 1970 (Age: 39) ??F ? Collect Date: ? 01/23/2010 ? Location: ? [facility] ? Receive Date: ? 01/24/2010 ? Provider: KYLEE VACA MD ? Copy to: [facility] SOCIAL SERVICES DIRECTOR ? Final Pathologic Diagnosis: ? Skin of [...] MD PATHOLOGY ORDERABLES [facility] [address] [place] [address] documented in this encounter Visit Diagnoses Not on filedocumented in this encounter
--- OUTSIDE RECORDS SUMMARY | 2023-09-20 18:41 | XMS_ITS | Encounter Summary ---
Author Organization [facility] Address [address] [place] [address] Care Team Providers Care Reading Intervention Teacher Name Role Phone Unknown, Provider Primary Care Provider Encounter Details Date Type Department Care Team (Late st Contact Info) Description 07/29/2022 Lab Requisition [facility] Pathology & Laboratory Medicine - [address] [address] Outr Resulting Lab, Provider Social History Tobacco [...] 64 - 147 % 08/05/2022 11:55 EDT [facility] Comment: a.Acquired Protein S deficiencies [...] HEMATOLOGY & PF4 ORDERABLES Performing Organization Address [facility] Co de Phone Number [facility] [address] [place] [address] * PROTEIN C ACTIVITY (07/29/2022 9:25 EDT) Protein C Clot 132 71 - 199 % 08/05/2022 11:55 EDT [facility] Comment: a. Acquired Protein C [...] HEMATOLOGY & PF4 ORDERABLES Performing Organization Address City/[facility]/ZIP Co de Phone Number [facility] [address] [place] [address] documented in this encounter Visit Diagnoses Not on filedocumented in this encounter Care Teams Reading Intervention Teacher Relationship Specialty Start Date End Date Unknown, Provider, PCP - General 01/28/10 documented as of this encounter
--- OUTSIDE RECORDS SUMMARY | 2023-09-20 18:41 | XMS_ITS | Encounter Summary ---
Author Organization [facility] [place] [address] Care Team Providers Care Index Clerk Name Role Phone Tim Rogers DNP Primary Care Provider [phone] Encounter Details Date Type Department Care Team (Late st Contact Info) Description 08/28/2019 [place] [address] Kia Angelo MD [facility] [address] [place] [address] Social History Tobacco Use Types Packs/Day Years [...] Dr. Pooja Iyer, Dr. Weathers Patient Location: [facility] ED Reason for call: [...] can keep and manage patient in the [facility] ED overnight pending bed [...] AM EDT Tech Visit Vascular Lab at [place] [phone] Jose Cook 10/08/2023 9:30 AM EDT Office Visit Vascular Surgery at [place] [phone] MD [facility] [place] [address] 10/21/2023 10:30 AM EDT Appointment Nuclear Medicine at [address] Mary Reyes [facility] [place] [address] 10/21/2023 11:30 AM EDT Appointment Nuclear Medicine at [place] [phone] Mary Reyes [facility] [place] [address] 10/21/2023 12:30 PM EDT Appointment [place] [address] Mary Reyes [facility] [place] [address] 10/21/2023 1:30 PM EDT Appointment [place] [phone] Mary Reyes [facility] [place] [address] 10/21/2023 2:30 PM EDT Appointment [place] [phone] Mary Reyes APRN [facility] [place] [address] 10/26/2023 4:00 PM EDT Office Visit Cardiology at [address] [phone] Jaspreet Kinsey [place] [address] 10/28/2023 9:00 AM EDT Office [place] [address] 10/29/2023 10:00 AM EDT Clinical [place] [address] 10/29/2023 10:15 AM EDT Procedure [place] [address] 11/01/2023 5:00 PM EDT Office [place] [phone] Selene Browning, PhD [facility] [place] [address] 11/22/2023 4:40 PM EDT Office Visit Cardiology at [address] [phone] Porsha Mcdaniels MD [facility] [place] [address] 12/13/2023 10:00 AM EDT Clinical Support [place] [phone] [facility] [place] [address] documented as of this encounter Visit Diagnoses Not on filedocumented in this encounter Care Teams Index Clerk Relationship Specialty Start Date End Date Tim Rogers DNP PCP - General Family Medicine 08/28/19 06/08/21 documented as of this encounter
--- OUTSIDE RECORDS SUMMARY | 2023-09-20 18:41 | XMS_ITS | Encounter Summary ---
Author Organization [facility] [place] [address] Care Team Providers Care Manager Multicultural Name Role Phone Tim Rogers DNP Primary Care Provider Encounter Details Date Type Department Care Team (Late st Contact Info) Description 08/28/2019 External [place] [phone] Social History Tobacco Use Types Packs/Day Years [...] EDT Tech Visit [place] [address] Jose Cook 10/08/2023 9:30 AM EDT Office [place] [phone] MD [facility] [place] [address] 10/21/2023 10:30 AM EDT Appointment [place] [phone] Mary Reyes [facility] [place] [address] 10/21/2023 11:30 AM EDT Appointment Nuclear Medicine at [place] [phone] Mary Reyes [facility] [place] [address] 10/21/2023 12:30 PM EDT Appointment Nuclear Medicine at [place] [phone] Mary Reyes [facility] [place] [address] 10/21/2023 1:30 PM EDT Appointment Nuclear Medicine at [place] [phone] Mary Reyes [facility] [place] [address] 10/21/2023 2:30 PM EDT Appointment [place] [address] Mary Reyes [facility] [place] [address] 10/26/2023 4:00 PM EDT Office Visit Cardiology at [address] [phone] Jaspreet Kinsey MD [facility] [place] [address] 10/28/2023 9:00 AM EDT Office [place] [address] 10/29/2023 10:00 AM EDT Clinical [place] [address] 10/29/2023 10:15 AM EDT Procedure [place] [address] 11/01/2023 5:00 PM EDT Office Visit Gastroenterology at [place] [phone] Selene Browning, PhD [facility] [place] [address] 11/22/2023 4:40 PM EDT Office Visit Cardiology at [address] [phone] Porsha Mcdaniels MD [facility] [place] [address] 12/13/2023 10:00 AM EDT Clinical Support [place] [address] Lucero Romero, ALVA [facility] [place] [address] documented as of this encounter Procedures Procedure Name Priority Date/Time Associated Diagnosis Comments ECG SCAN Routine 08/28/2019 documented in this encounter Results * Scan Doc: ECG (08/28/2019) Historical Provider MD FLEMING MGR SCAN EX T ORDR/RSLT documented in this encounter Visit Diagnoses Not on filedocumented in this encounter Care Teams Manager Multicultural Relationship Specialty Start Date End Date Tim Rogers DNP PCP - General Family Medicine 08/28/19 06/08/21 documented as of this encounter
--- OUTSIDE RECORDS SUMMARY | 2023-09-20 18:41 | XMS_ITS | Encounter Summary ---
Author Organization [facility] Address [facility] [place] [address] Care Team Providers Care Holter Scanning Technician Name Role Phone Faheem Romero MD Primary Care Provider [phone] Reason for Visit * Reason Comments Allergic Rhinitis Encounter Details Date Type Department Care Team (Late st Contact Info) Description 06/26/2010 9:15 AM EDT [place] [address] Lashonda York MD [facility] [place] [address] Asthma (Primary Dx); Rhinitis; Rhinitis, nonallergic, chronic [...] in this encounter Progress Notes * Lashonda Yokr MD - 06/26/2010 12:08 PM EDT HISTORY [...] pollen: Axel Tree pollen: Birch, Shay, Maple, Nancy, Beech, Hepler pollen: Anderson's Quarters, Short Ragweed, Pigweed, Molds: [...] AM EDT Tech Visit Vascular Lab at [place] [phone] Jose Cook 10/08/2023 9:30 AM EDT Office [place] [phone] MD [facility] [place] [address] 10/21/2023 10:30 AM EDT Appointment [place] [phone] Mary Reyes APRN [facility] [place] [address] 10/21/2023 11:30 AM EDT Appointment Nuclear Medicine at [place] [phone] Mary Reyes, [facility] [place] [address] 10/21/2023 12:30 PM EDT Appointment Nuclear Medicine at [place] [phone] Mary Reyes, [facility] [place] [address] 10/21/2023 1:30 PM EDT Appointment [place] [phone] Mary Reyes, [facility] [place] [address] 10/21/2023 2:30 PM EDT Appointment [place] [phone] Mary Reyes, [facility] [place] [address] 10/26/2023 4:00 PM EDT Office Visit Cardiology at [address] [phone] Jaspreet Kinsey MD [facility] [place] [address] 10/28/2023 9:00 AM EDT Office Visit [place] [address] 10/29/2023 10:00 AM EDT Clinical Support [place] [address] 10/29/2023 10:15 AM EDT Procedure visit [place] [address] 11/01/2023 5:00 PM EDT Office Visit Gastroenterology at [place] [phone] Selene Browning, PhD [facility] [place] [address] 11/22/2023 4:40 PM EDT Office Visit Cardiology at [address] Porsha Mcdaniels MD [facility] [place] [address] 12/13/2023 10:00 AM EDT Clinical [place] [phone] [facility] [place] [address] Scheduled Orders Name Type Priority Associated Diagnoses Orde r Schedule Spirometry without bronchodilator PFT Routine Asthma Ordered: 06/26/2010 documented as of this encounter Visit Diagnoses Diagnosis Asthma- Primary Unspecified asthma Rhinitis Chronic rhinitis Rhinitis, nonallergic, chronic Chronic rhinitis documented in this encounter Care Teams Holter Scanning Technician Relationship Specialty Start Date End Date Faheem Romero MD [facility] [address] [facility] [address] PCP - General 06/11/10 08/27/19 documented as of this encounter
[2023-09-20] MEDS: Ondansetron 4 MG/2 ML VIAL IVP (21:37)
[2023-09-20] MEDS: Topiramate 100 MG TAB PO (21:39)
[2023-09-20] MEDS: Atorvastatin 40 MG TAB 80 MG PO (21:39)
[2023-09-20] MEDS: Apixaban 5 MG TAB PO (21:39)
[2023-09-20] MEDS: Potassium Chloride 20 MEQ TABCR PO (21:39)
[2023-09-20] MEDS: Normal Saline Flush 10 ML SYR IVP (21:40)
[2023-09-20] MEDS: Gabapentin 600 MG TAB PO (21:40)
[2023-09-20] MEDS: rOPINIRole 1 MG TAB PO (21:40)
[2023-09-20] MEDS: Normal Saline 1,000 ML 100 ML IV (21:56)
[2023-09-21 03:43] VITALS: BP 112/58; PULSE 63; RESP 17; TEMP 36.4; O2SAT 92
[2023-09-21 07:15] LABS: HCT 38.4 % (36.0-46.0); HGB 13.3 g/dL (11.2-15.7); MCH 31.8 pg (27.0-33.0); MCHC 34.6 % (32.0-36.0); MCV 92 fL (80-95); MPV 10.7 fL (8.0-11.0); Platelet Count 250 10^3/uL (130-400); RBC 4.18 10^6/uL (3.93-5.22); RDW 12.7 % (11.7-14.6); RDW-SD 42.6 fL; WBC 6.11 10^3/uL (4.4-10.8)
[2023-09-21 07:31] LABS: Anion Gap 9.8 mmol/L (3-11); BUN 35 mg/dL (7-18); CO2 30.2 mmol/L (21.0-32.0); CREATININE 1.8 mg/dL (0.55-1.02); Calcium 8.9 mg/dL (8.5-10.1); Chloride 96 mmol/L (98-107); Estimated GFR 33.07 (mL/min/1.73m2); Glucose 132 mg/dL (74-106); Magnesium 2.8 mg/dL (1.8-2.4); Sodium 136 mmol/L (136-145)
[2023-09-21 07:48] LABS: Potassium 2.5 mmol/L (3.5-5.1)
[2023-09-21] MEDS: Normal Saline 1,000 ML 100 ML IV ×2 (07:49→17:59)
[2023-09-21 07:50] VITALS: BP 98/60; PULSE 58; RESP 18; TEMP 36.4; O2SAT 93
[2023-09-21] MEDS: POTASSIUM CHLORIDE 10 MEQ/100 ML BAG 100 MEQ IVINF ×4 (09:02→13:34)
[2023-09-21] MEDS: DULoxetine 30 MG CAP 60 MG PO (09:04)
[2023-09-21] MEDS: rOPINIRole 1 MG TAB PO ×2 (09:04→20:13)
[2023-09-21] MEDS: Potassium Chloride 20 MEQ TABCR PO (09:06)
[2023-09-21] MEDS: Ranolazine 500 MG TABCR 1000 MG PO ×2 (09:06→20:12)
[2023-09-21] MEDS: Omeprazole 20 MG CAPCR PO (09:07)
[2023-09-21] MEDS: Apixaban 5 MG TAB PO ×2 (09:07→20:12)
[2023-09-21] MEDS: Empaglifozin 10 MG TAB PO (09:08)
[2023-09-21] MEDS: Spironolactone 25 MG TAB PO (09:08)
[2023-09-21] MEDS: Torsemide 20 MG TAB 40 MG PO (09:16)
[2023-09-21] MEDS: Metoprolol 12.5 MG TAB 25 MG PO ×2 (09:16→20:13)
[2023-09-21] MEDS: metOLazone 2.5 MG TAB PO (09:16)
--- NOTE | 2023-09-21 09:27 | PDOC.CMIN ---
Date of service: 09/21/23 Time of Service: 09:27 Care Management Initial Assmt Initial Assessment Reason for Hospitalization: CATIE Functional Status/Living Situation Patient Presentation: Indira, or Mihaela as she likes to be called, was sitting up in be when CM met with them. She was pleasant and easily engaged with CM. Mihaela stated that she is not feeling well at all. She is still very nauseated but has not vomited. She continues to feel weak and remains hypotensive. Mihaela has been receiving IV fluids and electrolyte replacement. her. Mihaela shared that she feels that her Boby's physical condition is deteriorating and she is concerned about his future healthcare needs. Her Boby is also a patient on the unit and he came to visit while CM was with her. He has MS and ambulation has been challenging. Boby did manage to walk to Mihaela's room using a walker while being accompanied by PT. Town of Residence: [place] Resides with: Spouse ( Boby) Significant Other/Family: Local (son and daughter) Natural Supports: family Employment Status: Employed ([employer]) Instrumental Activities of Daily Living (ADLs): Independent Medications Medication Management: No Issues/Barriers identified Advance Directives Advance Directives: Do you have an Advance Directive: N 09/21/22 09:46 AD On File at [facility]: N 09/21/22 09:46 Date Asked 07/20/23 07/20/23 12:29 AD Date Reviewed COLST On File at [facility] COLST Date Scanned Code Status Resuscitation Status Full Code Insurance Coverage/Financial Issues Insurance: /[facility] Care Team Visit Care Team Role Provider Type Polo Pearce Primary Care Provider NON-[facility] STAFF PHYSICIAN Jasen Montes MD Emergency Provider [facility] STAFF PHYSICIAN Roman Jones MD Admit Provider [facility] STAFF PHYSICIAN Attending Provider Discharge Potential Discharge Needs: PCP F/U Appt Anticipated Barriers to Discharge: None Identified Patient/Family Education Needs: Review discharge instructions, discuss Ask Me Three Transportation: Private vehicle Plan: Anticipate Indira will be discharged home with no new services when medically cleared. She will follow up with her PCP and plan of care and transport with family. CM will continue to support discharge needs. PFSH All Active Problems (Updated 09/20/23 @ 18:26 by BKG DAEMON) Dizziness (Acute) Hypokalemia (Acute) CATIE (acute kidney injury) (Acute) Acute dehydration (Acute) Acute otitis media of right ear with perforated tympanic membrane (Acute) Non-ST elevation HI (NSTEMI) (Acute) Chronic kidney disease, stage III (moderate) (Acute) Hypermagnesemia (Acute) Acute hypokalemia (Acute) Ground glass opacity present on imaging of lung (Acute) Elevated troponin (Acute) CATIE (acute kidney injury) (Acute) Restrictive lung disease secondary to obesity (Acute) Allergic asthma (Acute) intermittent, controlled Dyspnea (Acute) Diarrhea (Acute) Congestive heart failure (Chronic) Sick euthyroidism (Acute) Carpal tunnel syndrome (Acute) GERD (gastroesophageal reflux disease) (Chronic) Bilateral renal artery stenosis (Acute) Encounter for weight loss counseling (Acute) Pulmonary emboli (Chronic) Arthritis of carpometacarpal (CMC) joint of left thumb (Acute) Avulsion fracture of right talus (Acute 12/30/21) Bilateral carpal tunnel syndrome (Acute) Paresthesia of hand, bilateral (Acute) Abnormal chest CT (Acute) Pulmonary hypertension (Acute) Atypical chest pain (Acute) PSVT (paroxysmal supraventricular tachycardia) (Acute) Acute non-ST elevation myocardial infarction (NSTEMI) (Acute) Elevated troponin I level (Acute) Right upper quadrant abdominal pain (Acute) Chronic heart failure with preserved ejection fraction (Chronic) Restless legs syndrome (Acute) Rhinitis, nonallergic, chronic (Acute) Tendinitis (Acute) Chest pain (Acute) Migraine headache without aura (Acute) Lichen sclerosus (Acute) MARYLOU (obstructive sleep apnea) (Chronic) Migraine with aura and without status migrainosus, not intractable (Acute 02/24/16) Medical History Myocardial infarction 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 Mild intermittent asthma Atherosclerosis of renal artery Heart failure Supraventricular tachycardia Atrial fibrillation Superior mesenteric artery stenosis (~03/10/22) see CTA abdomen and pelivs: 80% narrowing of SMA origin Renal artery stenosis (~03/10/22) right renal artery stenosis per CTA abomen/pelvis Hx of supraventricular tachycardia Infiltrate of lower lobe of left lung present on imaging study Acute non-ST elevation myocardial infarction (NSTEMI) COVID-19 Left lateral epicondylitis Arthritis of carpometacarpal (CMC) joint of left thumb Left wrist pain CHI (closed head injury) Acute bronchitis Non-ST elevation HI (NSTEMI) Insomnia Asthma Migraine Overweight Endometriosis Depression Surgical History History of radiofrequency ablation (RFA) procedure for cardiac arrhythmia Hx of tubal ligation History of partial hysterectomy Family History Daughter Migraines Mother Hypertension Father Heart disease Social History Smoking/Tobacco Use Status: Never Smoking risk assessment performed?: Yes Alcohol Intake: never Drug use: Never Substance use type: does not use Housing: house Current gender identity: female Do you feel safe at home: Yes Do you feel safe in your relationship?: Yes Female Reproductive History Menstrual Menopause type: surgical History History 2 Para 2 Hx # Term Pregnancies Multiple births Hx # Pregnancies Ectopic pregnancies AB induced Hx Number of Living Children AB spontaneous SDOH(Care Management) Screening Will the Patient Participate in the Screening?: Unable to obtain
--- NOTE | 2023-09-21 09:52 | W.PM.PROGNOT ---
Date of Service Date of service: 09/21/23 Time of Service: 09:52 Assessment and Plan Assessment and plan (1) CATIE (acute kidney injury): Status: Acute Assessment and plan: - Presenting symptoms of left-sided tingling, [id number], mild headache and weakness thought to be secondary to dehydration, overdiuresis and CATIE -Baseline creatinine low 1's, up to 2.4 in the ED -Cr down to 1.8 AM 09/20 -Patient received total 500 mL normal saline fluid bolus in the emergency department -continue gentle fluid rehydration during hospitalization -decrease torsemide from 40 mg twice daily to 40 mg daily -follow-up a.m. BMP (2) Hypokalemia: Status: Acute Assessment and plan: Secondary to diuretic use -2.8 in the emergency department -Status post 10 mEq IV in the emergency department -additional 30 mEq IV on admission -K 2.5 AM 09/20; ordered additional 40mEq IV -f/u 13:00 BMP 3.1 -will increase BID PO K replacement beginning PM 09/20 -Follow-up a.m. BMP (3) Elevated troponin: Status: Acute Assessment and plan: -Chronic, up to 655 upon arrival to the emergency department -Was elevated-during previous emergency room visit to [facility] on 08/28/2023 which prompted patient to go to [facility] for which she had cardiac catheterization that did not show any atherosclerotic disease as per [facility] consulting social work specialist -Will follow-up repeat troponin (4) Chronic heart failure with preserved ejection fraction: Status: Chronic Assessment and plan: - Last echocardiogram likely done at [facility] during previous hospitalization roughly 2 to 3 weeks ago, though one from 06/14/2023 done at [facility] shows normal EF -Will obtain results -Continue home statin, Lopressor, spironolactone, decreased dose of torsemide as noted above (5) MARYLOU (obstructive sleep apnea): Status: Chronic Assessment and plan: - Continue home CPAP (6) Restless legs syndrome: Status: Acute Assessment and plan: -Continue home ropinirole Subjective Subjective Interval history since last seen: Patient states that she is feeling better this morning but is still a little more weak as compared to her baseline. She also complaining of heart burn and is requesting medication. Otherwise she understands that we will continue to work on her potassium and low blod pressures with IV repletion. Exam Narrative Exam Narrative: obese, well appearing female laying in bed in no acute distress, AOx4, heart RRR, lungs CTAB, abdomen soft, non-tender, non-distended Objective Last Vital Signs Temp 97.5 F L 09/21/23 07:50 Pulse 58 L 09/21/23 07:50 Resp 18 09/21/23 07:50 BP 98/60 L 09/21/23 07:50 Pulse Ox 93 09/21/23 07:50 Laboratory Results - last 24 hr 09/20/23 09/20/23 09/21/23 14:41 17:49 06:40 WBC 8.85 6.11 RBC 5.04 4.18 Hgb 16.0 H 13.3 D Hct 45.5 38.4 MCV 90 92 MCH 31.7 31.8 MCHC 35.2 34.6 RDW 12.5 12.7 Plt Count 333 250 MPV 10.5 10.7 Immature Gran % 0.5 Neutrophils % 63.9 Lymphocytes % 21.1 Monocytes % 12.2 Eosinophils % 2.0 Basophils % 0.3 Nucleated RBC % 0.0 Absolute Neutrophils 5.65 Absolute Lymphocytes 1.87 Absolute Monocytes 1.08 H Absolute Eosinophils 0.18 Absolute Basophils 0.03 PT 10.2 INR 1.0 APTT 27.6 Sodium 130 L 136 Potassium 2.8 L* 2.5 L* Chloride 85 L 96 L Carbon Dioxide 35.6 H 30.2 Anion Gap 9.4 9.8 BUN 48 H 35 H Creatinine 2.4 H 1.8 H Est GFR (CKD-EPI 2020) 23.41 33.07 Glucose 108 H 132 H Calcium 9.5 8.9 Magnesium 3.2 H 2.8 H Total Bilirubin 0.52 AST 29 ALT 33 Alkaline Phosphatase 77 Troponin I 655 H* 588 H* NT-Pro-B Natriuret Pep 4763 H Total Protein 9.3 H Albumin 4.7 Time Spent with Patient Time Spent with Patient: >50 minutes Time was spent: preparing to see the patient(eg.review tests), obtaining and/or reviewing separately otained hiistory, ordering medications,tests, procedures, referring, communicating with other health healthcare consultant, indepentently interpreting results, counseling the patient and care coordination
[2023-09-21 11:17] VITALS: BP 96/72; PULSE 49; RESP 16; TEMP 36.3; O2SAT 96
--- NOTE | 2023-09-21 13:13 | PHA.REVIEW2 ---
Pharmacy Admission Review Admission Clinical Review Admission Pharmacy Review: Dizziness (Acute) Hypokalemia (Acute) CATIE (acute kidney injury) (Acute) Acute dehydration (Acute) Elevated troponin (Acute) Restless legs syndrome (Acute) acetaminophen (From Tylenol) Adverse Reaction (Intermediate, Unverified 09/20/23 14:26) jittery like too much caffeine clobetasol Adverse Reaction (Intermediate, Verified 09/20/23 14:26) Skin Rash codeine Adverse Reaction (Mild, Verified 09/20/23 14:26) Not able to sleep ibuprofen Adverse Reaction (Unverified 09/20/23 14:26) migraines environmental Allergy (Mild, Uncoded 09/20/23 14:26) sneezing/triggers her asthma Resuscitation Status Full Code Height 5 ft 4 in Weight 101 kg Pharmacy Admission Review Renal Dosing Renal Dosing: BUN 35 mg/dL (7-18) H 09/21/23 06:40 Creatinine 1.8 mg/dL (0.55-1.02) H 09/21/23 06:40 Medications needing adjustments: Reviewed (CrCl 41.23 mL/min) List of meds needing interventions: Current medications are okay Anticoagulation Anticoagulation: Hgb 13.3 g/dL (11.2-15.7) D 09/21/23 06:40 Hct 38.4 % (36.0-46.0) 09/21/23 06:40 Plt Count 250 10^3/uL (130-400) 09/21/23 06:40 INR 1.0 (0.9-1.1) 09/20/23 14:41 Creatinine 1.8 mg/dL (0.55-1.02) H 09/21/23 06:40 DVT Prophylaxis: Reviewed Medications: Apixaban (5mg PO BID) Relevant Labs Relevant Labs: Sodium 136 mmol/L (136-145) 09/21/23 06:40 Potassium 2.5 mmol/L (3.5-5.1) L* 09/21/23 06:40 Chloride 96 mmol/L (98-107) L 09/21/23 06:40 Magnesium 2.8 mg/dL (1.8-2.4) H 09/21/23 06:40 Electrolytes, C-Reactive P, ESR: Reviewed (K decreased from 2.8 to 2.5 - repleting and repeat level pending, Mg decreased from 3.2 to 2.8) Cardiac Review Cardiac Review: Troponin I 588 ng/L (< or =60) H* 09/20/23 17:49 NT-Pro-B Natriuret Pep 4763 pg/mL (<300) H 09/20/23 14:41 Blood Pressure 96/72 1117 Blood Pressure 98/60 0750 Blood Pressure 112/58 0343 BP, HR, EF%: Reviewed (BP 96/72 and HR 49, troponin decreased from 655) QTc Review QTc: Reviewed (593 from 09/20/23) IV to PO Switch IV Medications: Reviewed (ondansetron) Home Meds Home Med List reviewed: Reviewed Relevent Home Meds Not ordered & why?: Clobetasol cream, Aimovig (not taking per home med list) and Nurtec (PRN) Current Meds Current Medication Order Review: Intervened Comments: Changed timing of omeprazole from 0830 to 0730 per pharmacy protocol Changed timing of ropinirole to 1600 and 2000 to match home med list directions Added 2nd PRN to melatonin and loratadine orders
[2023-09-21 13:51] LABS: Anion Gap 8.3 mmol/L (3-11); BUN 31 mg/dL (7-18); CO2 31.7 mmol/L (21.0-32.0); CREATININE 1.7 mg/dL (0.55-1.02); Calcium 8.5 mg/dL (8.5-10.1); Chloride 98 mmol/L (98-107); Estimated GFR 35.42 (mL/min/1.73m2); Glucose 111 mg/dL (74-106); Potassium 3.1 mmol/L (3.5-5.1); Sodium 138 mmol/L (136-145)
[2023-09-21 16:19] VITALS: BP 90/60; PULSE 50; RESP 17; TEMP 36.6; O2SAT 93
--- NOTE | 2023-09-21 17:25 | CHAPLAIN ---
Indira was in bed when I visited. She was quiet but engaged in a short conversation. She didn't seem interested in further conversation. She said she's in touch with family.
[2023-09-21 19:30] VITALS: BP 108/62; PULSE 52; RESP 18; TEMP 35.8; O2SAT 95
[2023-09-21] MEDS: Normal Saline Flush 10 ML SYR IVP (20:12)
[2023-09-21] MEDS: Potassium Chloride 20 MEQ TABCR 40 MEQ PO (20:12)
[2023-09-21] MEDS: Gabapentin 600 MG TAB PO (20:12)
[2023-09-21] MEDS: Atorvastatin 40 MG TAB 80 MG PO (20:12)
[2023-09-21] MEDS: Topiramate 100 MG TAB PO (20:13)
[2023-09-21 20:16] VITALS: BP 120/78
[2023-09-21] MEDS: Melatonin 3 MG TAB 9 MG PO (23:49)
[2023-09-22 00:16] VITALS: BP 109/76; PULSE 48; RESP 18; TEMP 36.6; O2SAT 95
[2023-09-22] MEDS: Normal Saline 1,000 ML 100 ML IV ×3 (02:45→22:32)
[2023-09-22 03:54] VITALS: BP 94/52; PULSE 42; RESP 18; TEMP 36; O2SAT 98
[2023-09-22 07:15] LABS: HCT 38.1 % (36.0-46.0); HGB 12.9 g/dL (11.2-15.7); MCHC 33.9 % (32.0-36.0); MCV 95 fL (80-95); MPV 11.1 fL (8.0-11.0); Platelet Count 218 10^3/uL (130-400); RBC 4.03 10^6/uL (3.93-5.22); WBC 6.65 10^3/uL (4.4-10.8)
[2023-09-22 07:24] LABS: Anion Gap 8.4 mmol/L (3-11); BUN 28 mg/dL (7-18); CO2 28.6 mmol/L (21.0-32.0); CREATININE 1.4 mg/dL (0.55-1.02); Calcium 8.7 mg/dL (8.5-10.1); Chloride 100 mmol/L (98-107); Estimated GFR 44.71 (mL/min/1.73m2); Glucose 104 mg/dL (74-106); Sodium 137 mmol/L (136-145)
[2023-09-22 07:25] LABS: Potassium 2.9 mmol/L (3.5-5.1)
[2023-09-22 07:31] VITALS: BP 98/56; PULSE 47; RESP 22; TEMP 35.7; O2SAT 98
[2023-09-22] MEDS: Torsemide 20 MG TAB PO (09:00)
[2023-09-22] MEDS: Ranolazine 500 MG TABCR 1000 MG PO ×2 (09:00→20:24)
[2023-09-22] MEDS: Potassium Chloride 20 MEQ TABCR 40 MEQ PO ×2 (09:00→20:24)
[2023-09-22] MEDS: Metoprolol 12.5 MG TAB PO (09:01)
[2023-09-22] MEDS: Spironolactone 25 MG TAB PO (09:05)
[2023-09-22] MEDS: Apixaban 5 MG TAB PO ×2 (09:05→20:24)
[2023-09-22] MEDS: metOLazone 2.5 MG TAB PO (09:05)
[2023-09-22] MEDS: Empaglifozin 10 MG TAB PO (09:05)
[2023-09-22] MEDS: Normal Saline Flush 10 ML SYR IVP ×2 (09:06→11:15)
[2023-09-22] MEDS: Omeprazole 20 MG CAPCR PO (09:06)
[2023-09-22] MEDS: DULoxetine 30 MG CAP 60 MG PO (09:06)
--- NOTE | 2023-09-22 09:21 | PDOC.CMPRO ---
Date of service: 09/22/23 Time of Service: 09:21 Care Management Progress Note Progress Note Text Progress Note Text: Mihaela was sitting up in bed visiting with her when CM met with her. Although her is being discharged today, Mihaela informed CM that she was not quite ready. She stated that her potassium remains very low (2.9 this morning) and she is still receiving IV fluids for her dehydration. She did state that she is feeling a bit better but is still light headed. The dosing of her diuretics are also being adjusted; she indicated that she feels that is chavis to resolving her symptoms. Discharge Potential Discharge Needs: PCP F/U Appt Anticipated Barriers to Discharge: None Identified Patient/Family Education Needs: Review discharge instructions, discuss Ask Me Three Transportation: Private vehicle Plan: Anticipate Indira will be discharged home with no new services when medically cleared. She will follow up with her PCP and plan of care and transport with family. CM will continue to support discharge needs. SDOH(Care Management) Screening Will the Patient Participate in the Screening?: Unable to obtain
[2023-09-22] MEDS: Ondansetron 4 MG/2 ML VIAL IVP (11:15)
[2023-09-22 11:25] VITALS: BP 97/54; PULSE 49; RESP 20; TEMP 35.9; O2SAT 94
[2023-09-22 14:35] VITALS: BP 106/59; PULSE 46; RESP 16; TEMP 36.6; O2SAT 99
[2023-09-22] MEDS: rOPINIRole 1 MG TAB PO ×2 (17:00→20:25)
--- NOTE | 2023-09-22 17:16 | W.PM.PROGNOT ---
Date of Service Date of service: 09/22/23 Time of Service: 17:16 Assessment and Plan Assessment and plan (1) CATIE (acute kidney injury): Status: Acute Assessment and plan: - Presenting symptoms of left-sided tingling, [id number], mild headache and weakness thought to be secondary to dehydration, overdiuresis and CATIE -Baseline creatinine low 1's, up to 2.4 in the ED -Cr down to 1.8 AM 09/20 -Patient received total 500 mL normal saline fluid bolus in the emergency department -continue gentle fluid rehydration during hospitalization -decrease torsemide from 40 mg twice daily to 40 mg daily -patient still with low normal BPs with systolics in the high 90's -AM 09/21 decreased torsemide down to 20mg daily to help with BPs and hypokalemia as noted below (2) Hypokalemia: Status: Acute Assessment and plan: Secondary to diuretic use -2.8 in the emergency department -Status post 10 mEq IV in the emergency department -additional 30 mEq IV on admission -K 2.5 AM 09/20; ordered additional 40mEq IV -f/u 13:00 BMP 3.1 -will increase BID PO K replacement beginning PM 09/20 -K 2.9 AM 09/21, PM BMP ordered at 13:00 and still not drawn, stat order in, will f/u (3) Elevated troponin: Status: Acute Assessment and plan: -Chronic, up to 655 upon arrival to the emergency department -Was elevated-during previous emergency room visit to [facility] on 08/28/2023 which prompted patient to go to [facility] for which she had cardiac catheterization that did not show any atherosclerotic disease as per [facility] consulting macaroni press operator -repeat troponin 588 (4) Chronic heart failure with preserved ejection fraction: Status: Chronic Assessment and plan: - Last echocardiogram likely done at [facility] during previous hospitalization roughly 2 to 3 weeks ago, though one from 06/14/2023 done at [facility] shows normal EF -Will obtain results -Continue home statin, spironolactone, decreased dose of torsemide as noted above -decreased lopressor to 12.5mg BID due to ongoing bradycardia (5) MARYLOU (obstructive sleep apnea): Status: Chronic Assessment and plan: - Continue home CPAP (6) Restless legs syndrome: Status: Acute Assessment and plan: -Continue home ropinirole Subjective Subjective Interval history since last seen: Patient states that she is feeling a little better today as compared to yesterday but that she is still weak and has a headache. Exam Narrative Exam Narrative: obese, well appearing female laying in bed in no acute distress, AOx4, heart RRR, lungs CTAB, abdomen soft, non-tender, non-distended Objective Last Vital Signs Temp 97.9 F 09/22/23 14:35 Pulse 46 L 09/22/23 14:35 Resp 16 09/22/23 14:35 BP 106/59 L 09/22/23 14:35 Pulse Ox 99 09/22/23 14:35 Laboratory Results - last 24 hr 09/22/23 06:25 WBC 6.65 RBC 4.03 Hgb 12.9 Hct 38.1 MCV 95 MCH 32.0 MCHC 33.9 RDW 13.0 Plt Count 218 MPV 11.1 H Sodium 137 Potassium 2.9 L* Chloride 100 Carbon Dioxide 28.6 Anion Gap 8.4 BUN 28 H Creatinine 1.4 H Est GFR (CKD-EPI 2020) 44.71 Glucose 104 Calcium 8.7 Time Spent with Patient Time Spent with Patient: >50 minutes Time was spent: preparing to see the patient(eg.review tests), obtaining and/or reviewing separately otained hiistory, ordering medications,tests, procedures, referring, communicating with other health care taker, indepentently interpreting results, counseling the patient and care coordination
[2023-09-22 17:56] LABS: Anion Gap 6.9 mmol/L (3-11); BUN 29 mg/dL (7-18); CO2 32.1 mmol/L (21.0-32.0); CREATININE 1.5 mg/dL (0.55-1.02); Calcium 8.7 mg/dL (8.5-10.1); Chloride 100 mmol/L (98-107); Estimated GFR 41.16 (mL/min/1.73m2); Glucose 107 mg/dL (74-106); Potassium 3.3 mmol/L (3.5-5.1); Sodium 139 mmol/L (136-145)
[2023-09-22 20:03] VITALS: BP 96/58; PULSE 51; RESP 18; TEMP 36.7; O2SAT 96
[2023-09-22] MEDS: Gabapentin 600 MG TAB PO (20:24)
[2023-09-22] MEDS: Atorvastatin 40 MG TAB 80 MG PO (20:24)
[2023-09-22] MEDS: Topiramate 100 MG TAB PO (20:25)
[2023-09-22] MEDS: Melatonin 3 MG TAB 9 MG PO (20:25)
[2023-09-22] MEDS: Dexamethasone 10 MG/ML VIAL IVP (23:38)
[2023-09-22] MEDS: diphenhydrAMINE 50 MG/ML VIAL 25 MG IVP (23:39)
[2023-09-23] VITALS (7 sets, daily range): BP systolic 99–116; BP diastolic 53–64; PULSE 46–63; RESP 18–20; TEMP 35.8–37.2; O2SAT 95–99
--- NOTE | 2023-09-23 07:00 | RT.EKG_ITS ---
APPROVED REPORT Exam: Resting ECG Reason for Exam: increased chest pain Patient Location: I HR:53 bpm ECG Measurements Heart Rate [address] 195 P 34 QRSd 102 QRS 43 QT 596 T 7 QTc 559 Conclusion Sinus bradycardia...rate< 60 Probable left atrial enlargement...P >50mS, <-0.10mV V1 Prolonged QT interval...QTc >510mS
[2023-09-23] MEDS: Omeprazole 20 MG CAPCR PO (07:36)
[2023-09-23 07:38] LABS: HCT 38.9 % (36.0-46.0); HGB 13.1 g/dL (11.2-15.7); MCH 31.8 pg (27.0-33.0); MCHC 33.7 % (32.0-36.0); MCV 94 fL (80-95); MPV 10.6 fL (8.0-11.0); Platelet Count 216 10^3/uL (130-400); RBC 4.12 10^6/uL (3.93-5.22); RDW 12.8 % (11.7-14.6); RDW-SD 44.3 fL; WBC 6.78 10^3/uL (4.4-10.8)
[2023-09-23 07:52] LABS: Anion Gap 9.2 mmol/L (3-11); BUN 25 mg/dL (7-18); CO2 24.8 mmol/L (21.0-32.0); CREATININE 1.3 mg/dL (0.55-1.02); Calcium 8.9 mg/dL (8.5-10.1); Chloride 103 mmol/L (98-107); Estimated GFR 48.87 (mL/min/1.73m2); Glucose 145 mg/dL (74-106); Potassium 3.8 mmol/L (3.5-5.1); Sodium 137 mmol/L (136-145)
[2023-09-23 08:11] LABS: Troponin I 576 ng/L (< or =60)
[2023-09-23] MEDS: Normal Saline 1,000 ML 100 ML IV (08:39)
[2023-09-23] MEDS: Normal Saline Flush 10 ML SYR IVP ×2 (08:41→19:35)
[2023-09-23] MEDS: DULoxetine 30 MG CAP 60 MG PO (08:42)
[2023-09-23] MEDS: Potassium Chloride 20 MEQ TABCR 40 MEQ PO ×2 (08:43→19:36)
[2023-09-23] MEDS: Torsemide 20 MG TAB PO (08:43)
[2023-09-23] MEDS: Apixaban 5 MG TAB PO ×2 (08:43→19:36)
[2023-09-23] MEDS: metOLazone 2.5 MG TAB PO (08:43)
[2023-09-23] MEDS: Empaglifozin 10 MG TAB PO (08:43)
[2023-09-23] MEDS: Spironolactone 25 MG TAB PO (08:43)
[2023-09-23] MEDS: Ranolazine 500 MG TABCR 1000 MG PO ×2 (08:44→19:35)
[2023-09-23] MEDS: rOPINIRole 1 MG TAB PO ×2 (15:06→19:36)
--- NOTE | 2023-09-23 16:47 | PDOC.CMPRO ---
Date of service: 09/23/23 Time of Service: 16:47 Care Management Progress Note Progress Note Text Progress Note Text: Indira was sitting up in her chair when CM met with her. She stated that she is feeling better than when she arrived. Per MD, she is nearing discharge readiness. She stated that she is looking forward to returning home, and that family will transport her home when she is ready. CM will continue to follow. Discharge Potential Discharge Needs: PCP F/U Appt Anticipated Barriers to Discharge: None Identified Patient/Family Education Needs: Review discharge instructions, discuss Ask Me Three Transportation: Private vehicle Plan: Anticipate Indira will be discharged home with no new services when medically cleared. She will follow up with her PCP and plan of care and transport with family. CM will continue to support discharge needs. SDOH(Care Management) Screening Will the Patient Participate in the Screening?: Unable to obtain
[2023-09-23] MEDS: Metoprolol 12.5 MG TAB PO (19:35)
[2023-09-23] MEDS: Gabapentin 600 MG TAB PO (19:36)
[2023-09-23] MEDS: Atorvastatin 40 MG TAB 80 MG PO (19:36)
[2023-09-23] MEDS: Topiramate 100 MG TAB PO (19:36)
[2023-09-23] MEDS: Melatonin 3 MG TAB 9 MG PO (19:38)
--- NOTE | 2023-09-23 19:44 | W.PM.PROGNOT ---
Date of Service Date of service: 09/23/23 Time of Service: 19:44 Assessment and Plan Assessment and plan (1) CATIE (acute kidney injury): Status: Acute Assessment and plan: - Presenting symptoms of left-sided tingling, [id number], mild headache and weakness thought to be secondary to dehydration, overdiuresis and CATIE -Baseline creatinine low 1's, up to 2.4 in the ED -Cr down to 1.8 AM 09/20 -Patient received total 500 mL normal saline fluid bolus in the emergency department -continue gentle fluid rehydration during hospitalization -decrease torsemide from 40 mg twice daily to 40 mg daily -patient still with low normal BPs with systolics in the low 100's -AM 09/21 decreased torsemide down to 20mg daily to help with BPs and hypokalemia as noted below (2) Hypokalemia: Status: Acute Assessment and plan: Secondary to diuretic use -2.8 in the emergency department -Status post 10 mEq IV in the emergency department -additional 30 mEq IV on admission -K 2.5 AM 09/20; ordered additional 40mEq IV -f/u 13:00 BMP 3.1 -will increase BID PO K replacement beginning PM 09/20 -K 2.9 AM 09/21, PM K up to 3.3, and up to 3.9 AM 09/22 -f/u AM BMP (3) Elevated troponin: Status: Acute Assessment and plan: -Chronic, up to 655 upon arrival to the emergency department -Was elevated-during previous emergency room visit to [facility] on 08/28/2023 which prompted patient to go to [facility] for which she had cardiac catheterization that did not show any atherosclerotic disease as per [facility] consulting torch straightener -repeat troponin 588 (4) Chronic heart failure with preserved ejection fraction: Status: Chronic Assessment and plan: - Last echocardiogram likely done at [facility] during previous hospitalization roughly 2 to 3 weeks ago, though one from 06/14/2023 done at [facility] shows normal EF -Will obtain results -Continue home statin, spironolactone, decreased dose of torsemide as noted above -decreased lopressor to 12.5mg BID due to ongoing bradycardia which had led to HRs in the 60's (5) MARYLOU (obstructive sleep apnea): Status: Chronic Assessment and plan: - Continue home CPAP (6) Restless legs syndrome: Status: Acute Assessment and plan: -Continue home ropinirole Subjective Subjective Interval history since last seen: Patient states that she is feeling about the same as she did when she had previous been discharged from the hospital, but that she is not back to her baseline and each previous discharge felt premature leading to her being readmitted. Exam Narrative Exam Narrative: obese, well appearing female laying in bed in no acute distress, AOx4, heart RRR, lungs CTAB, abdomen soft, non-tender, non-distended Objective Last Vital Signs Temp 96.4 F L 09/23/23 16:19 Pulse 63 09/23/23 16:19 Resp 18 09/23/23 16:19 BP 116/57 L 09/23/23 16:19 Pulse Ox 97 09/23/23 16:19 Laboratory Results - last 24 hr 09/22/23 09/23/23 13:18 07:31 WBC 6.78 RBC 4.12 Hgb 13.1 Hct 38.9 MCV 94 MCH 31.8 MCHC 33.7 RDW 12.8 Plt Count 216 MPV 10.6 Sodium Cancelled 137 Potassium Cancelled 3.8 Chloride Cancelled 103 Carbon Dioxide Cancelled 24.8 Anion Gap Cancelled 9.2 BUN Cancelled 25 H Creatinine Cancelled 1.3 H Est GFR (CKD-EPI 2020) Cancelled 48.87 Glucose Cancelled 145 H Calcium Cancelled 8.9 Troponin I 576 H* Time Spent with Patient Time Spent with Patient: >50 minutes Time was spent: preparing to see the patient(eg.review tests), obtaining and/or reviewing separately otained hiistory, ordering medications,tests, procedures, referring, communicating with other health career development specialist, indepentently interpreting results, counseling the patient and care coordination
[2023-09-24] MEDS: diphenhydrAMINE 25 MG CAP PO ×2 (03:08→20:02)
[2023-09-24 03:09] VITALS: BP 95/54; PULSE 51; RESP 18; TEMP 36.6; O2SAT 97
[2023-09-24 07:16] LABS: Anion Gap 11.1 mmol/L (3-11); BUN 31 mg/dL (7-18); CO2 26.9 mmol/L (21.0-32.0); CREATININE 1.3 mg/dL (0.55-1.02); Calcium 9.2 mg/dL (8.5-10.1); Chloride 99 mmol/L (98-107); Estimated GFR 48.87 (mL/min/1.73m2); Glucose 103 mg/dL (74-106); Potassium 3.7 mmol/L (3.5-5.1); Sodium 137 mmol/L (136-145)
[2023-09-24 07:57] VITALS: BP 100/5; PULSE 50; RESP 15; TEMP 35; O2SAT 100
[2023-09-24] MEDS: DULoxetine 30 MG CAP 60 MG PO (10:15)
[2023-09-24] MEDS: Potassium Chloride 20 MEQ TABCR 40 MEQ PO ×2 (10:16→20:03)
[2023-09-24] MEDS: Apixaban 5 MG TAB PO ×2 (10:16→20:03)
[2023-09-24] MEDS: Omeprazole 20 MG CAPCR PO (10:17)
[2023-09-24] MEDS: Empaglifozin 10 MG TAB PO (10:17)
[2023-09-24 10:35] VITALS: BP 93/55; PULSE 49; RESP 12; TEMP 36.7
[2023-09-24] MEDS: Normal Saline Flush 10 ML SYR IVP ×2 (10:44→20:01)
[2023-09-24] MEDS: Ranolazine 500 MG TABCR 1000 MG PO ×2 (10:52→20:02)
[2023-09-24] MEDS: Spironolactone 25 MG TAB PO (10:52)
[2023-09-24] MEDS: Torsemide 20 MG TAB PO (10:52)
[2023-09-24] MEDS: Metoprolol 12.5 MG TAB PO (10:52)
[2023-09-24 15:12] VITALS: BP 95/56; PULSE 46; RESP 14; TEMP 35.9; O2SAT 99
--- NOTE | 2023-09-24 15:48 | CHAPLAIN ---
Indira was up in the chair when I visited. Her room is kept fairly dark. I had a brief visit. She said things are ok, and did not seem interested in further conversation.
--- NOTE | 2023-09-24 15:57 | W.PM.PROGNOT ---
Date of Service Date of service: 09/24/23 Time of Service: 10:15 Assessment and Plan Assessment and plan (1) CATIE (acute kidney injury): Status: Acute Assessment and plan: - Presenting symptoms of left-sided tingling, [id number], mild headache and weakness thought to be secondary to dehydration, overdiuresis and CATIE - Creatine 2.4 at admission, now down to baseline in low 1's -Cr down to 1.8 AM 09/20 -Patient received total 500 mL normal saline fluid bolus in the emergency department -continue gentle fluid rehydration during hospitalization -decreased torsemide from 40 mg twice daily to 40 mg daily, then 20mg daily -patient still with low normal BPs with systolics in the 90s -AM 09/23 holding metolazone (2) Hypokalemia: Status: Acute Assessment and plan: Secondary to diuretic use - treated IV, now 20mEq BID PO K replacement beginning PM 09/20 - cutting loop and thiazide diuretics - improved, continue to monitor. (3) Elevated troponin: Status: Acute Assessment and plan: -Chronic, up to 655 upon arrival to the emergency department -Was elevated-during previous emergency room visit to [facility] on 08/28/2023 which prompted patient to go to [facility] for which she had cardiac catheterization that did not show any atherosclerotic disease as per [facility] consulting livestock agent. Case reviewed with [facility] cardiology on admission and felt not c/w ACS. -repeat troponins 588, 576. Continue medical management (4) Chronic heart failure with preserved ejection fraction: Status: Chronic Assessment and plan: - Last echocardiogram likely done 06/14/2023 at [facility] shows normal LVEF - No echo at [facility] since then, but had Cardiac MRI, PET, and purfusion imaging showing fixed defect and microvascular disease, normal LVEF. -Continue home statin, spironolactone, decreased dose of torsemide and metolazone as noted above -decreased lopressor to 12.5mg BID due to ongoing bradycardia which had led to HRs in the 50's, now still in 50s but will continue this dose. -continue to monitor on telemetry given ongoing low blood pressure and patient symptoms, we continue to adjust medications. (5) MARYLOU (obstructive sleep apnea): Status: Chronic Assessment and plan: - Continue home CPAP (6) Restless legs syndrome: Status: Acute Assessment and plan: -Continue home ropinirole Subjective Subjective Patient reports: tolerating a regular diet; denies fever Interval history since last seen: Feels better, much improved compared to when she came in, but still a bit lightheaded on her feet and fatigued. Not SOB, no chest pain now. She no longer has hand tingling. Exam Narrative Exam Narrative: Well appearing female sitting up in bed in no acute distress, AOx4, heart RRR, lungs CTAB, abdomen soft, non-tender, non-distended. Extremities non-tender, no cyanosis or edema. Objective Last Vital Signs Temp 35.9 C L 09/24/23 15:12 Pulse 46 L 09/24/23 15:12 Resp 14 09/24/23 15:12 BP 95/56 L 09/24/23 15:12 Pulse Ox 99 09/24/23 15:12 Laboratory Results - last 24 hr 09/24/23 06:24 Sodium 137 Potassium 3.7 Chloride 99 Carbon Dioxide 26.9 Anion Gap 11.1 H BUN 31 H Creatinine 1.3 H Est GFR (CKD-EPI 2020) 48.87 Glucose 103 Calcium 9.2 Time Spent with Patient Time Spent with Patient: 35-49 minutes Time was spent: preparing to see the patient(eg.review tests), obtaining and/or reviewing separately otained hiistory, ordering medications,tests, procedures, referring, communicating with other health physician primary care sports medicine, indepentently interpreting results, counseling the patient and care coordination
[2023-09-24] MEDS: rOPINIRole 1 MG TAB PO ×2 (16:29→20:01)
[2023-09-24] MEDS: VALPROATE SODIUM 500 MG in Normal Saline 50 ML 50 MG IVPB (17:52)
--- NOTE | 2023-09-24 18:43 | PDOC.CMPRO ---
Date of service: 09/24/23 Time of Service: 18:43 Care Management Progress Note Progress Note Text Progress Note Text: Mihaela was lying in bed, almost asleep, when CM met with her. She stated that she is really trired as she did not sleep well last night. Clinically, she is doing much better. Her potassium has been within the normal range for the past 2 days (3.8 and 3.7) and her blood pressure has improved with most readings above 100. At times she still has a SBP in the 90s but this seems to be close to her baseline for the past couple of years. She is also bradycardic, again, similar to the past. Mihaela is still undergoing medication adjustments and will remain hospitalized at least one more day. Discharge Potential Discharge Needs: PCP F/U Appt Anticipated Barriers to Discharge: Medical Status Patient/Family Education Needs: Review discharge instructions, discuss Ask Me Three Transportation: Private vehicle Plan: Anticipate Indira will be discharged home with no new services when medically cleared. She will follow up with her PCP and plan of care and transport with family. CM will continue to support discharge needs. SDOH(Care Management) Screening Will the Patient Participate in the Screening?: Unable to obtain
[2023-09-24 19:55] VITALS: BP 90/52; PULSE 54; RESP 16; TEMP 36.1; O2SAT 98
[2023-09-24] MEDS: Melatonin 3 MG TAB 9 MG PO (20:02)
[2023-09-24] MEDS: Gabapentin 600 MG TAB PO (20:02)
[2023-09-24] MEDS: Atorvastatin 40 MG TAB 80 MG PO (20:03)
[2023-09-24] MEDS: Topiramate 100 MG TAB PO (20:03)
[2023-09-24 23:00] VITALS: BP 86/52; PULSE 50; RESP 16; TEMP 36; O2SAT 98
[2023-09-25 03:25] VITALS: BP 90/55; PULSE 52; RESP 16; TEMP 35.9; O2SAT 97
[2023-09-25 07:08] LABS: Anion Gap 10.4 mmol/L (3-11); BUN 31 mg/dL (7-18); CO2 28.6 mmol/L (21.0-32.0); CREATININE 1.3 mg/dL (0.55-1.02); Calcium 9.4 mg/dL (8.5-10.1); Chloride 100 mmol/L (98-107); Estimated GFR 48.87 (mL/min/1.73m2); Glucose 94 mg/dL (74-106); Magnesium 2.3 mg/dL (1.8-2.4); Sodium 139 mmol/L (136-145)
--- NOTE | 2023-09-25 07:23 | W.PC.ACHO ---
Registration Status: Primary Language: Preferred Language: ED Information & Data Chief Complaint Chest Pain 09/20/23 17:09 Triage Note Pt arrives to ED c/o CP that 09/20/23 14:17 began this weekend. Pt has a hx of HF and was recently admitted at [facility] for an NSTEMI. Pt is having dizziness, nausea, and LT sided tingling/numbness; also dysphasia. Equal strength bilateral upper and lower exts. 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) Renal artery stenosis (~03/10/22) Hx of supraventricular tachycardia Infiltrate of lower lobe of left lung present on imaging study Acute non-ST elevation myocardial infarction (NSTEMI) COVID-19 Left lateral epicondylitis Arthritis of carpometacarpal (CMC) joint of left thumb Left wrist pain CHI (closed head injury) Acute bronchitis Non-ST elevation SC (NSTEMI) Insomnia Asthma Migraine Overweight Endometriosis Depression (Last Reviewed 09/20/23 @ 17:00 by Jasen Montes MD) History of radiofrequency ablation (RFA) procedure for cardiac arrhythmia Hx of tubal ligation History of partial hysterectomy Most Recent Vital Signs Temperature 35.9 C L 09/25/23 03:25 Temperature Source Temporal Artery Scan 09/25/23 03:25 Pulse 52 L 09/25/23 03:25 Pulse Rhythm Regular 09/24/23 19:55 Pulse 48 L 09/20/23 18:10 Respiratory Rate 16 09/25/23 03:25 Respiratory Effort Normal, Non-Labored 09/24/23 19:55 Respiratory Depth Normal 09/24/23 19:55 Respiratory Pattern Normal 09/24/23 19:55 Blood Pressure 90/55 L 09/25/23 03:25 Blood Pressure Mean 66 09/20/23 18:01 Blood Pressure Position Sitting 09/20/23 14:17 Pulse Oximetry 97 09/25/23 03:25 Oxygen Delivery Method Room Air 09/25/23 03:25 Oxygen Flow Rate 0 09/25/23 03:25 Pain Level 0 09/25/23 03:25 Comment 2L oxygen applied 09/23/23 07:09 Allergies acetaminophen (From Tylenol) Adverse Reaction (Intermediate, Unverified 09/20/23 14:26) jittery like too much caffeine clobetasol Adverse Reaction (Intermediate, Verified 09/20/23 14:26) Skin Rash codeine Adverse Reaction (Mild, Verified 09/20/23 14:26) Not able to sleep ibuprofen Adverse Reaction (Unverified 09/20/23 14:26) migraines environmental Allergy (Mild, Uncoded 09/20/23 14:26) sneezing/triggers her asthma Precautions Isolation Suicide precaution 09/20/23 14:44 Active Medications Generic Name Dose Route Start Last Admin Trade Name Freq PRN Reason Stop Dose Admin Apixaban 5 mg 09/20/23 20:00 09/24/23 20:03 Apixaban 5 Mg Tab PO 5 mg BID JOSE Administration Atorvastatin Calcium 80 mg 09/20/23 22:00 09/24/23 20:03 Atorvastatin 40 Mg Tab PO 80 mg QPM JOSE Administration Diphenhydramine HCl 25 mg 09/24/23 00:02 09/24/23 20:02 Diphenhydramine 25 Mg Cap PO 25 mg HS PRN PRN Administration Duloxetine HCl 60 mg 09/21/23 08:30 09/24/23 10:15 Duloxetine 30 Mg Cap PO 60 mg DAILY JOSE Administration Empagliflozin 10 mg 09/21/23 08:30 09/24/23 10:17 Empaglifozin 10 Mg Tab PO 10 mg DAILY JOSE Administration Fluticasone Propionate 0 gm 09/21/23 08:30 09/24/23 11:33 Fluticasone Nasal Solon 16 Gm Btl NS Not Given DAILY JOSE Gabapentin 600 mg 09/20/23 20:00 09/24/23 20:02 Gabapentin 600 Mg Tab PO 600 mg HS JOSE Administration Sodium Chloride 1,000 mls @ 100 mls/hr 09/20/23 20:45 09/23/23 19:34 Saline 1000ml Bag IV Infused INFUSION JOSE Infusion Melatonin 9 mg 09/21/23 10:01 09/24/23 20:02 Melatonin 3 Mg Tab PO 9 mg HS PRN PRN Administration Metoprolol Tartrate 12.5 mg 09/22/23 08:30 09/24/23 20:45 Metoprolol 12.5 Mg Tab PO Not Given BID JOSE Omeprazole 20 mg 09/22/23 07:30 09/24/23 10:17 Omeprazole 20 Mg Capcr PO 20 mg DAILY@0730 JOSE Administration Ondansetron HCl 4 mg 09/20/23 21:07 09/22/23 11:15 Ondansetron 4 Mg/2 Ml Vial IVP 4 mg Q6H PRN PRN Administration Potassium Chloride 40 meq 09/21/23 20:00 09/24/23 20:03 Potassium Chloride 20 Meq Tabcr PO 40 meq BID JOSE Administration Ranolazine 1,000 mg 09/21/23 08:30 09/24/23 20:02 Ranolazine 500 Mg Tabcr PO 1,000 mg BID JOSE Administration Ropinirole HCl 1 mg 09/21/23 20:00 09/24/23 20:01 Ropinirole 1 Mg Tab PO 1 mg BID@1600,2000 JOSE Administration Sodium Chloride 0 ml 09/20/23 18:32 09/22/23 11:15 Normal Saline Flush 10 Ml Syr IVP 10 ml PRN PRN Administration Sodium Chloride 0 ml 09/20/23 20:00 09/24/23 20:01 Normal Saline Flush 10 Ml Syr IVP 10 ml BID JOSE Administration Spironolactone 25 mg 09/21/23 08:30 09/24/23 10:52 Spironolactone 25 Mg Tab PO 25 mg DAILY JOSE Administration Topiramate 100 mg 09/20/23 20:00 09/24/23 20:03 Topiramate 100 Mg Tab PO 100 mg HS JOSE Administration Torsemide 20 mg 09/22/23 08:30 09/24/23 10:52 Torsemide 20 Mg Tab PO 20 mg DAILY JOSE Administration IV IV Catheter Type [Right Saline Lock Antecubital] IV Catheter Gauge [Right 20 Antecubital] Diagnostics 09/25/23 Range/Units 06:34 Sodium 139 (136-145) mmol/L Potassium 4.0 (3.5-5.1) mmol/L Chloride 100 (98-107) mmol/L Carbon Dioxide 28.6 (21.0-32.0) mmol/L Anion Gap 10.4 (3-11) mmol/L BUN 31 H (7-18) mg/dL Creatinine 1.3 H (0.55-1.02) mg/dL Est GFR (CKD-EPI 2020) 48.87 (mL/min/1.73m2) Glucose 94 (74-106) mg/dL Calcium 9.4 (8.5-10.1) mg/dL Magnesium 2.3 (1.8-2.4) mg/dL Intake and Output - 24 Hour Total 09/20/23 14:12 thru 09/25/23 00:39 Intake Total 41714.666 Output Total 8750 Balance 4386.666 Weight 101 kg Intake: [place] 11565.666 Oral 2810 Output: Urine 8750 Other: Urine Color Yellow Urine Appearance Cloudy Urine Odor Normal Comment voided in toilet Voiding Methods Toilet Falls Risk Assessment History of Falls No History 09/20/23 18:34 Contributing Factors No Factors 09/20/23 18:14 Ambulatory Aids Independent 09/20/23 18:14 Tubes/Lines None 09/20/23 18:14 Gait Evaluation No gait disturbance 09/20/23 18:14 Cognition No cognitive impairment 09/20/23 18:14 Fall Total Score 0 09/20/23 18:34 Level of Risk Standard/Low Risk 09/20/23 18:34 Problems (Last Reviewed 09/20/23 @ 17:00 by Jasen Montes MD) Dizziness (Acute) Hypokalemia (Acute) CATIE (acute kidney injury) (Acute) Acute dehydration (Acute) Elevated troponin (Acute) Chronic heart failure with preserved ejection fraction (Chronic) Restless legs syndrome (Acute) MARYLOU (obstructive sleep apnea) (Chronic) v v v v v v v v v Sending and/or Receiving Nurses: Please use comment section below to note any information pertinent to the patient hand-off not included above. Information / Comments: Report received from: Vito
[2023-09-25 08:29] VITALS: BP 104/59; PULSE 50; RESP 16; TEMP 36.9; O2SAT 98
[2023-09-25] MEDS: Ranolazine 500 MG TABCR 1000 MG PO (08:31)
[2023-09-25] MEDS: Empaglifozin 10 MG TAB PO (08:31)
[2023-09-25] MEDS: DULoxetine 30 MG CAP 60 MG PO (08:31)
[2023-09-25] MEDS: Spironolactone 25 MG TAB PO (08:31)
[2023-09-25] MEDS: Omeprazole 20 MG CAPCR PO (08:31)
[2023-09-25] MEDS: Torsemide 20 MG TAB PO (08:33)
[2023-09-25] MEDS: Potassium Chloride 20 MEQ TABCR 40 MEQ PO (08:33)
[2023-09-25] MEDS: Apixaban 5 MG TAB PO (08:33)
[2023-09-25] MEDS: Normal Saline Flush 10 ML SYR IVP (08:34)
[2023-09-25 09:10] VITALS: BP 106/58; BP 114/67; BP 116/66; PULSE 61; PULSE 63
[2023-09-25 11:25] VITALS: BP 91/55; PULSE 55; RESP 15; TEMP 36.1; O2SAT 99
--- NOTE | 2023-09-25 12:23 | W.PM.DS.N ---
Date of service: 09/25/23 Time of Service: 12:24 DS: Diagnosis Discharge Diagnosis (1) CATIE (acute kidney injury): Status: Acute (2) Hypokalemia: Status: Acute (3) Elevated troponin: Status: Acute (4) Chronic heart failure with preserved ejection fraction: Status: Chronic (5) MARYLOU (obstructive sleep apnea): Status: Chronic (6) Restless legs syndrome: Status: Acute Discharge Plan Disposition Patient Disposition: Home Condition: Good Discharge Details Reason For Visit: CATIE,hypokalemia,orthostatic hypotension Admit Date/Time: 09/20/23 17:45 Admit Provider: Roman Jones Attending Provider: Roman Jones Primary Care Provider: Polo Pearce Hospital Course Hospital Course: 53 yo female with a past medical history of NSTEMI associated with non-obstructive disease (recent hospitalization and left heart catheterization at [facility] without stenting), chronically elevated troponin, HFpEF, and CKD 3a who presented to the emergency department with complaints of left-sided tingling. She was diagnosed with an CATIE with creatinine of 2.4. Troponins were similar to previous at 655, with no EKG changes or chest pain. Her blood pressure was systolic in 90s, heart rate in the 40s, and potassium of 2.8. Case was discussed with her cardiology team at [facility]. She was admitted for gentle hydration, potassium replacement, and monitoring. Her troponins trended from 655 to 588, then 576 and were not continued. Her creatinine returned to her baseline of 1.3 by the 3rd day and was stable. She received 500mg of normal saline, and her torsemide was decreased to 40mg daily (from BID), then 20mg daily due to continued low blood pressure and potassium. Her weight was 101kg at admission and 102.1kg on discharge. Her intake/output was negative over the last two days despite taking only 20mg torsemide. She did not get any metolazone during her stay. Orthostatic blood pressures were normal on the morning of discharge. Her metoprolol was decreased from 25mg to 12.5mg BID. Her pulse was still in the 50s dipping into the high 40s but she did not have symptoms. Her potassium was supplumented IV and orally. She she was discharged on her previous doses of spironolactone and potassium chloride and lower dose of torsemide as above. Repeat BMP ordered for 1 week from discharge prior to PCP follow up. She did have two episodes of migraines during her stay. The first was treated with 500mg IV valproate with diphenhydramine and dexamethasone, which helped. The second, two days later, was treated with just valproate which also worked. She has follow up with her neurologist for her migraines. Home Meds and New Rx's Prescriptions: New torsemide 20 mg Tablet 20 mg PO DAILY Qty: 90 0RF Continued ropinirole 1 mg tablet 1 mg PO BID Rx Instructions: @ 1600 and 2100 potassium chloride 20 mEq tablet,ER particles/crystals 20 meq PO BID atorvastatin 80 mg tablet 40 mg PO QPM fluticasone propionate [Flonase Allergy Relief] 9.9 ML spray,suspension 2 spray NS DAILY duloxetine [Cymbalta] 60 mg capsule,delayed release(DR/EC) 60 mg PO DAILY Qty: 30 2RF albuterol sulfate 90 mcg/actuation HFA aerosol inhaler 2 puff inhalation Q4H PRN loratadine [Allergy Relief (loratadine)] 10 mg tablet 10 mg PO DAILY PRN nitroglycerin 0.4 mg tablet, sublingual 0.4 mg sublingual Q5M PRN Rx Instructions: do not exceed 3 doses per episode Aimovig Autoinjector 140 mg/mL auto-injector 140 mg subcut QMONTH Qty: 1 11RF clobetasol 0.05 % ointment 1 applic topical DIRECTED omeprazole 20 mg capsule,delayed release(DR/EC) 20 mg PO DAILY gabapentin 600 mg tablet 600 mg PO QHS Qty: 90 3RF topiramate [Topamax] 100 mg tablet 100 mg PO QHS Qty: 90 3RF apixaban 5 mg tablet 5 mg PO BID Jardiance 10 mg tablet 10 mg PO DAILY ranolazine 1,000 mg tablet extended release 12 hr 1,000 mg PO BID spironolactone 25 mg tablet 25 mg PO DAILY montelukast 10 mg tablet 10 mg PO DAILY PRN melatonin 10 mg capsule 10 mg PO HS PRN Changed metolazone 2.5 mg tablet 2.5 mg PO PRN PRNQty: 0 0RF metoprolol tartrate 25 mg tablet 12.5 mg PO BID Qty: 0 0RF Discontinued Nurtec ODT 75 mg tablet,disintegrating 75 mg PO ONCE PRN (Reason: migraine headache) Qty: 10 3RF Rx Instructions: As a single dose. No more than one dose in 24 hours. torsemide 40 mg tablet 40 mg PO DAILY atorvastatin 40 mg tablet 40 mg PO DAILY Patient Comments: TAKE ONE TABLET BY MOUTH EVERY EVENING Discharge Instructions Instructions: Heart Failure, Adult (DC) Additional Instructions: Your medications were reduced while you were here as above. You should be taking 1/2 tablet of the metoprolol 25mg instead of the whole. You should be taking only 20mg ONCE a day of torsemide. We did send the small torsemide pill to your pharmacy. Continue to weigh yourself daily, monitor your blood pressure and pulse. Activity:: Activity as Tolerated Equipment/Supplies:: No Equipment Needed Diet:: Low Sodium Discharge Orders Discharge Orders: Discharge Order (Routine); Ordered 09/25/23 Ordered By: Aaron Reina Other Ambulatory Orders: Basic Metabolic Panel (Routine) Timeframe: 1 Week Facility: [facility] - Location: Laboratory Outpatient - [facility] Ordered By: Aaron Reina DS: Summary Time Spent with Patient providing and/or coordinating discharge services: Greater than 30 minutes Status at Discharge Functional status at discharge: independent ambulation Overall status at discharge: patient is back to baseline Mental Status: mental status grossly normal Speech and Movement: speech and movement normal Mood: congruent mood Affect: normal affect Quality:SDOH Health Related Social Needs: No Data to Display Exam Narrative Exam Narrative: Well appearing female sitting up in bed in no acute distress, AOx4, heart RRR, lungs CTAB, abdomen soft, non-tender, non-distended. Extremities non-tender, no cyanosis or edema. Psych Mental Status: mental status grossly normal Speech and Movement: speech and movement normal Mood: congruent mood Affect: normal affect DS: Data Vitals/I&O Vitals and I&O: Vital Signs Temperature 36.1 C L 09/25/23 11:25 Temperature Source Temporal Artery Scan 09/25/23 11:25 Pulse 55 L 09/25/23 11:25 Pulse Rhythm Regular 09/25/23 09:31 Pulse 48 L 09/20/23 18:10 Respiratory Rate 15 09/25/23 11:25 Respiratory Effort Normal, Non-Labored 09/25/23 09:31 Respiratory Depth Normal 09/25/23 09:31 Respiratory Pattern Normal 09/25/23 09:31 Blood Pressure 91/55 L 09/25/23 11:25 Blood Pressure Mean 66 09/20/23 18:01 Blood Pressure Position Sitting 09/20/23 14:17 Pulse Oximetry 99 09/25/23 11:25 Oxygen Delivery Method Room Air 09/25/23 11:25 Oxygen Flow Rate 0 09/25/23 11:25 Pain Level 0 09/25/23 11:25 Comment 2L oxygen applied 09/23/23 07:09 Intake & Output 09/24/23 09/25/23 09/25/23 23:59 11:59 23:59 Intake Total 415 / 635 220 / 220 Output Total 1999 Balance 415 / 635 -1780 / -1780 Weight 102.1 kg Intake: IV 55 / 55 Oral 360 / 580 220 / 220 Output: Urine 1999 Other: Urine Color Yellow Urine Appearance Clear Clear Urine Odor Normal Voiding Methods Toilet Data Completed and Pending Labs on day of discharge: Labs from last 24 hours 09/25/23 06:34 Sodium 139 Potassium 4.0 Chloride 100 Carbon Dioxide 28.6 Anion Gap 10.4 BUN 31 H Creatinine 1.3 H Est GFR (CKD-EPI 2020) 48.87 Glucose 94 Calcium 9.4 Magnesium 2.3 PFSH All Active Problems (Updated 09/25/23 @ 12:15 by Aaron Reina) Dizziness (Acute) Hypokalemia (Acute) CATIE (acute kidney injury) (Acute) Acute dehydration (Acute) Acute otitis media of right ear with perforated tympanic membrane (Acute) Non-ST elevation CO (NSTEMI) (Acute) Chronic kidney disease, stage III (moderate) (Acute) Hypermagnesemia (Acute) Acute hypokalemia (Acute) Ground glass opacity present on imaging of lung (Acute) Elevated troponin (Acute) CATIE (acute kidney injury) (Acute) Restrictive lung disease secondary to obesity (Acute) Allergic asthma (Acute) intermittent, controlled Dyspnea (Acute) Diarrhea (Acute) Congestive heart failure (Chronic) Sick euthyroidism (Acute) Carpal tunnel syndrome (Acute) GERD (gastroesophageal reflux disease) (Chronic) Bilateral renal artery stenosis (Acute) Encounter for weight loss counseling (Acute) Pulmonary emboli (Chronic) Arthritis of carpometacarpal (CMC) joint of left thumb (Acute) Avulsion fracture of right talus (Acute 12/30/21) Bilateral carpal tunnel syndrome (Acute) Paresthesia of hand, bilateral (Acute) Abnormal chest CT (Acute) Pulmonary hypertension (Acute) Atypical chest pain (Acute) PSVT (paroxysmal supraventricular tachycardia) (Acute) Acute non-ST elevation myocardial infarction (NSTEMI) (Acute) Elevated troponin I level (Acute) Right upper quadrant abdominal pain (Acute) Chronic heart failure with preserved ejection fraction (Chronic) Restless legs syndrome (Acute) Rhinitis, nonallergic, chronic (Acute) Tendinitis (Acute) Chest pain (Acute) Migraine headache without aura (Acute) Lichen sclerosus (Acute) MARYLOU (obstructive sleep apnea) (Chronic) Migraine with aura and without status migrainosus, not intractable (Acute 02/24/16) Medical History Myocardial infarction 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 Mild intermittent asthma Atherosclerosis of renal artery Heart failure Supraventricular tachycardia Atrial fibrillation Superior mesenteric artery stenosis (~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/22) see CTA abdomen and pelivs: 80% narrowing of SMA origin Renal artery stenosis (~03/10/22) right renal artery stenosis per CTA abomen/pelvis Hx of supraventricular tachycardia Infiltrate of lower lobe of left lung present on imaging study Acute non-ST elevation myocardial infarction (NSTEMI) COVID-19 Left lateral epicondylitis Arthritis of carpometacarpal (CMC) joint of left thumb Left wrist pain CHI (closed head injury) Acute bronchitis Non-ST elevation CO (NSTEMI) Insomnia Asthma Migraine Overweight Endometriosis Depression Surgical History History of radiofrequency ablation (RFA) procedure for cardiac arrhythmia Hx of tubal ligation History of partial hysterectomy Family History Daughter Migraines Mother Hypertension Father Heart disease Social History Smoking/Tobacco Use Status: Never Smoking risk assessment performed?: Yes Alcohol Intake: never Drug use: Never Substance use type: does not use Housing: house Current gender identity: female Do you feel safe at home: Yes Do you feel safe in your relationship?: Yes Female Reproductive History Menstrual Menopause type: surgical History History 2 Para 2 Hx # Term Pregnancies Multiple births Hx # Pregnancies Ectopic pregnancies AB induced Hx Number of Living Children AB spontaneous Time Spent with Patient Time Spent with Patient: 45-69 minutes Time was spent: preparing to see the patient(eg.review tests), obtaining and/or reviewing separately otained hiistory, ordering medications,tests, procedures, referring, communicating with other health cna caregiver, indepentently interpreting results, counseling the patient and care coordination
--- NOTE | 2023-09-25 13:44 | PDOC.CMDIS ---
Date of service: 09/25/23 Time of Service: 13:44 LACE Index Scoring Tool Questions: Length of Stay (in days): 4 - 6 Was the patient admitted via the E.D.?: Yes Comorbidities: Previous M.I., Congestive Heart Failure, Chronic Pulmonary Disease and Liver or Renal Disease E.D. Visits: 4 Answers: Total Score: 16 Risk of Readmission: High Risk Care Management Discharge Plan Reason for Hospitalization: CATIE Discharge Plan: Indira will be discharged home with no new services. She will follow up with her PCP and plan of care and transport with family. Patient/Family Education Needs: Review discharge instructions, discuss Ask Me Three SDCT Health Related Social Needs: No Data to Display
== END 2023-09-25 13:54 | disposition home or self-care (01) | DRG 683 ==
LOC: ER 17:38 → MS 18:26
PROVIDERS: Family Medicine; Admitting Provider Family Medicine; Emergency Provider Emergency Medicine; PCP Physician Assistant; Visit Provider Family Medicine
DX: N17.9 Acute kidney failure, unspecified (principal); I47.10 Supraventricular tachycardia, unspecified; I50.32 Chronic diastolic (congestive) heart failure; T50.2X5A Adverse effect of carbonic-anhydrase inhibitors, benzothiadiazides and other diuretics, initial encounter; E87.6 Hypokalemia; E86.0 Dehydration; I25.2 Old myocardial infarction; R74.8 Abnormal levels of other serum enzymes; N18.30 Chronic kidney disease, stage 3 unspecified; E66.9 Obesity, unspecified; Z68.38 Body mass index [BMI] 38.0-38.9, adult; J45.20 Mild intermittent asthma, uncomplicated; E07.81 Sick-euthyroid syndrome; K21.9 Gastro-esophageal reflux disease without esophagitis; G25.81 Restless legs syndrome; G43.009 Migraine without aura, not intractable, without status migrainosus; G47.33 Obstructive sleep apnea (adult) (pediatric); G47.00 Insomnia, unspecified; I48.91 Unspecified atrial fibrillation; I70.1 Atherosclerosis of renal artery; I95.9 Hypotension, unspecified; R20.2 Paresthesia of skin
CPT/HCPCS: 00123; 36410; 36415; 80048; 80053; 85027; 93005; 96360; 96361; 99285; 70450; 71045; 83735; 83880; 84484; 85025; 85610; 85730; 93010; 99223; 99232; 99233; 99239; J1100; J1200; J2405; J3480; J3490

== ENCOUNTER 2023-10-02 22:33 | Outpatient (REF) | payer BC, SELFPAY ==
[2023-10-02 17:05] LABS: Anion Gap 11.7 mmol/L (3-11); BUN 28 mg/dL (7-18); CO2 26.3 mmol/L (21.0-32.0); CREATININE 1.7 mg/dL (0.55-1.02); Calcium 9.4 mg/dL (8.5-10.1); Chloride 104 mmol/L (98-107); Estimated GFR 35.42 (mL/min/1.73m2); Glucose 81 mg/dL (74-106); Potassium 4.3 mmol/L (3.5-5.1); Sodium 142 mmol/L (136-145)
--- OUTSIDE RECORDS SUMMARY | 2023-10-02 22:37 | XMS_ITS | Encounter Summary ---
Author Organization [facility] Address [address] [place] [address] Care Team Providers Care Roll Grinder Name Role Phone Unknown, Provider Primary Care Provider Encounter Details Date Type Department Care Team (Late st Contact Info) Description 08/28/2019 Lab Requisition [facility] Pathology & Laboratory Medicine - [address] [address] Outr Resulting Lab, Provider Social History Tobacco [...] Outr Resulting Lab MICROBIOLOGY - GENERAL ORDERABLES [facility] [address] [place] [address] * COVID-19 TESTING (08/28/2019 21:50 EDT) COVID-19 rt-PCR Result Negative Negative 08/29/2019 12:31 EDT [facility] Comment: This test has [...] history, and epidemiological information. Performed on the [email or web address] Fusion instrument Performing Lab [facility] Lab 08/29/2019 12:31 EDT [facility] Swab 08/28/2019 21:5 0 EDT 08/29/2019 8:30 EDT Provider Outr Resulting Lab MICROBIOLOGY - GENERAL ORDERABLES [facility] [address] [place] [address] documented in this encounter Visit Diagnoses Not on filedocumented in this encounter Care Teams Roll Grinder Relationship Specialty Start Date End Date Unknown, Provider, PCP - General 01/28/10 documented as of this encounter
--- OUTSIDE RECORDS SUMMARY | 2023-10-02 22:37 | XMS_ITS | Encounter Summary ---
Author Organization [facility] Address [address] [place] [address] Care Team Providers Care Assistant Teacher Name Role Phone Unavailable Primary Care Provider Unavailabl e Encounter Details Date Type Department Care Team (Late st Contact Info) Description 05/15/1999 Results Only [facility] conversion [address] [place] [address] Channing Brand MD [address] [place] [address] Social History Tobacco Use Types [...] ? LOIDA ROQUE ? Accession #: ? [id number] ? : ? 1970 (Age: 29) ??F [...] Brand MD PATHOLOGY ORDERABLES Performing Organization Address City/State/[facility] Co de Phone Number [facility] [address] [place] [address] documented in this encounter Visit Diagnoses Not on filedocumented in this encounter
--- OUTSIDE RECORDS SUMMARY | 2023-10-02 22:37 | XMS_ITS | Encounter Summary ---
Author Organization [facility] Address [address] [place] [address] Care Team Providers Care Emergency Medical Services Coordinator Name Role Phone Unknown, Provider Primary Care Provider [phone] Encounter Details Date Type Department Care Team (Late st Contact Info) Description 09/06/2020 Lab Requisition [facility] Pathology & Laboratory Medicine - [address] [address] Outr Resulting Lab, Provider Social History Tobacco [...] Outr Resulting Lab MICROBIOLOGY - GENERAL ORDERABLES [facility] [address] [place] [address] * COVID-19 TESTING (09/05/2020 14:00 EDT) COVID-19 rt-PCR Result Negative Negative 09/07/2020 14:05 EDT [facility] Comment: This test has not [...] developed and its performance characteristics determined by [facility]. It has not been cleared or approved [...] testing. This test is based on the [facility] COVID-19 Emergency Use Authorization (EUA) assay, with minor modification as defined by the FDA Performed on the [employer] 7 Flex RT-PCR System. Performing Lab [facility] Lab 09/07/2020 14:05 EDT [facility] Swab 09/05/2020 14:0 0 EDT 09/06/2020 16:13 EDT Provider Outr Resulting Lab MICROBIOLOGY - GENERAL ORDERABLES [facility] [address] [place] [address] documented in this encounter Visit Diagnoses Not on filedocumented in this encounter Care Teams Emergency Medical Services Coordinator Relationship Specialty Start Date End Date Unknown, Provider, PCP - General 01/28/10 documented as of this encounter
--- OUTSIDE RECORDS SUMMARY | 2023-10-02 22:37 | XMS_ITS | Encounter Summary ---
Author Organization [facility] Address [address] [place] [address] Care Team Providers Care Oceanography Teacher Name Role Phone Unavailable Primary Care Provider Unavailabl e Encounter Details Date Type Department Care Team (Late st Contact Info) Description 01/19/2000 Results Only [facility] conversion [address] [place] [address] Channing Brand MD [address] [place] [address] Social History Tobacco Use Types [...] ? LOIDA ROQUE ? Accession #: ? [id number] ? : ? 1970 (Age: 29) ??F [...] reviewed and electronically signed by: Gerald Nino [facility] Report ??Date: 01/22/2000 16:44 By the signature [...] a discernible squamocolumnar junction. BLOCK RHODES B1,B2 ?Assessment Counselor section of anterior endomyometrium B3 ?Possible myomatous nodule from the anterior half of the specimen B4 ?Assessment Counselor section of posterior endomyometrium B5 ?Assessment Counselor section of posterior endo- and ectocervix B6 ?Anterior endo- and ectocervix (Dr. Garcia)/[facility] End of Report [facility] 01/19/2000 01/20/2000 14: 59 EST Channing Brand MD PATHOLOGY ORDERABLES [facility] [address] [place] [address] documented in this encounter Visit Diagnoses Not on filedocumented in this encounter
--- OUTSIDE RECORDS SUMMARY | 2023-10-02 22:37 | XMS_ITS | Clinical Summary ---
Author Organization [facility] Address [address] [place] [address] Care Team Providers Care Heating Element Repairer Name Role Phone Unknown, Provider Primary Care Provider [phone] Social History Tobacco Use Types Packs/Day Years [...] C Antibody Negative Negative 05/20/2020 11:15 EDT [facility] Blood VENOUS BLOOD / Unknown 05/17/2020 14:00 EST 05/19/2020 16:37 EDT Provider Outr Resulting Lab CHEMISTRY & BLOOD GAS ORDERABLES [facility] [address] [place] [address] from Last 3 Months or Most Recently Relevant to Health Maintenance Care Teams Heating Element Repairer Relationship Specialty Start Date End Date Unknown, Provider, PCP - General 01/28/10
--- OUTSIDE RECORDS SUMMARY | 2023-10-02 22:37 | XMS_ITS | Encounter Summary ---
Author Organization [facility] Address [address] [place] [address] Care Team Providers Care Drier Operator Helper Name Role Phone Unknown, Provider Primary Care Provider Encounter Details Date Type Department Care Team (Late st Contact Info) Description 01/07/2021 Lab Requisition [facility] Pathology & Laboratory Medicine - [address] [address] Outr Resulting Lab, Provider Social History Tobacco [...] Priority Date/Time Associated Diagnosis Comments ZZCOVID-19 TEST [facility] LAB PCR Today 01/06/2021 14:00 EDT COVID-19 TESTING Routine 01/06/2021 14:0 0 EDT documented in this encounter Results * COVID-19 TEST [facility] PCR (01/06/2021 14:00 EDT) Swab ENTIRE NASOPHARYNX / Unknown 01/06/2021 14:00 EDT 01/07/2021 17:19 EDT Provider Outr Resulting Lab MICROBIOLOGY - GENERAL ORDERABLES [facility] [address] [place] [address] * COVID-19 TESTING (01/06/2021 14:00 EDT) COVID-19 rt-PCR Result Negative Negative 01/08/2021 12:42 EDT [facility] Comment: This test has [...] was performed using the ric SARS-CoV-2 assay ([employer] on the Ric 6800 System Performing Lab Ric 6800 [facility] Lab 01/08/2021 12:42 EDT [facility] Swab 01/06/2021 14:0 0 EDT 01/07/2021 17:19 EDT Provider Outr Resulting Lab MICROBIOLOGY - GENERAL ORDERABLES Performing Organization Address City/State/[facility] Co de Phone Number [facility] [address] [place] [address] documented in this encounter Visit Diagnoses Not on filedocumented in this encounter Care Teams Drier Operator Helper Relationship Specialty Start Date End Date Unknown, Provider, PCP - General 01/28/10 documented as of this encounter
--- OUTSIDE RECORDS SUMMARY | 2023-10-02 22:37 | XMS_ITS | Encounter Summary ---
Author Organization [facility] Address [address] [place] [address] Care Team Providers Care Poultry Vaccinator Name Role Phone Unknown, Provider Primary Care Provider Encounter Details Date Type Department Care Team (Late st Contact Info) Description 07/29/2022 Lab Requisition [facility] Pathology & Laboratory Medicine - [address] [address] Outr Resulting Lab, Provider Social History Tobacco [...] 64 - 147 % 08/05/2022 11:55 EDT [facility] Comment: a.Acquired Protein [...] HEMATOLOGY & PF4 ORDERABLES Performing Organization Address [facility] Co de Phone Number [facility] [address] [place] [address] * PROTEIN C ACTIVITY (07/29/2022 9:25 EDT) Protein C Clot 132 71 - 199 % 08/05/2022 11:55 EDT [facility] Comment: a. Acquired [...] HEMATOLOGY & PF4 ORDERABLES Performing Organization Address City/[facility]/ZIP Co de Phone Number [facility] [address] [place] [address] documented in this encounter Visit Diagnoses Not on filedocumented in this encounter Care Teams Poultry Vaccinator Relationship Specialty Start Date End Date Unknown, Provider, PCP - General 01/28/10 documented as of this encounter
--- OUTSIDE RECORDS SUMMARY | 2023-10-02 22:37 | XMS_ITS | Encounter Summary ---
Author Organization [facility] Address [address] [place] [address] Care Team Providers Care Production Department Supervisor Name Role Phone Unknown, Provider Primary Care Provider [phone] Encounter Details Date Type Department Care Team (Late st Contact Info) Description 05/18/2020 Lab Requisition [facility] Pathology & Laboratory Medicine - [address] [address] Outr Resulting Lab, Provider Social History Tobacco [...] C Antibody Negative Negative 05/20/2020 11:15 EDT [facility] Blood VENOUS BLOOD / Unknown 05/17/2020 14:00 EST 05/19/2020 16:37 EDT Provider Outr Resulting Lab CHEMISTRY & BLOOD GAS ORDERABLES [facility] [address] [place] [address] * CELIAC DISEASE PANEL (05/17/2020 14:00 EST) Tissue Transglutaminase Antibody IGA <1.2 <4.0 U/mL 05/20/2020 13:21 EDT [facility] Comment: A negative result may be due to IgA deficiency and does not rule out celiac disease. ? Negative: ??<4.0 U/mL ? Weak Positive: ??4.0 - 10.0 U/mL ? Positive: ??>10.0 U/mL Results were obtained with the [employer] Lite R h-tTG IgA VAIBHAV assay on the [facility]. IgA 283 85 - 499 mg/dL 05/20/2020 13:21 EDT [facility] Celiac Disease Interpretation Negative Serology. Celiac disease unlikely. Approximately 10% of patients with celiac disease are seronegative. Patients who are already adhering to a gluten-free diet may also be seronegative. If celiac disease is highly clinically suspected, referral to gastroenterology for additional evaluation is recommended. 05/20/2020 13:21 EDT [facility] Blood VENOUS BLOOD / Unknown 05/17/2020 14:00 EST 05/19/2020 16:27 EDT Provider Outr Resulting Lab IMMUNOLOGY A ND SEROLOGY ORDERABLES Performing Organization Address City/State/[facility] Co de Phone Number [facility] [address] [place] [address] documented in this encounter Visit Diagnoses Not on filedocumented in this encounter Care Teams Production Department Supervisor Relationship Specialty Start Date End Date Unknown, Provider, PCP - General 01/28/10 documented as of this encounter
--- OUTSIDE RECORDS SUMMARY | 2023-10-02 22:37 | XMS_ITS | Encounter Summary ---
Author Organization [facility] Address [address] [place] [address] Care Team Providers Care Trailer Steerer Name Role Phone Unknown, Provider Primary Care Provider Encounter Details Date Type Department Care Team (Late st Contact Info) Description 05/18/2020 Lab Requisition [facility] Pathology & Laboratory Medicine - [address] [address] Outr Resulting Lab, Provider Social History Tobacco [...] Negative Negative 05/20/2020 11:[address] [facility] Comment: If acute HIV-1 infection is suspected in a high risk ??patient, submit plasma specimen for HIV-1 RNA quantitation test. Fourth Generation assay performed on the Siemens [employer]. Blood VENOUS BLOOD / Unknown 05/17/2020 14:00 EST 05/19/2020 16:27 EDT Provider Outr Resulting Lab IMMUNOLOGY A ND SEROLOGY ORDERABLES [facility] [address] [place] [address] documented in this encounter Visit Diagnoses Not on filedocumented in this encounter Care Teams Trailer Steerer Relationship Specialty Start Date End Date Unknown, Provider, PCP - General 01/28/10 documented as of this encounter
--- OUTSIDE RECORDS SUMMARY | 2023-10-02 22:37 | XMS_ITS | Encounter Summary ---
Author Organization [facility] Address [address] [place] [address] Care Team Providers Care Contact Lens Technician Name Role Phone Unavailable Primary Care Provider Unavailabl e Encounter Details Date Type Department Care Team (Late st Contact Info) Description 01/02/2000 Results Only [facility] conversion [address] [place] [address] Channing Brand MD [address] [place] [address] Social History Tobacco Use Types [...] ? LOIDA ROQUE ? Accession #: ? [id number] : ? 1970 (Age: 29) ??F ?Collect [...] Brand MD PATHOLOGY ORDERABLES [facility] [address] [place] [address] documented in this encounter Visit Diagnoses Not on filedocumented in this encounter
--- OUTSIDE RECORDS SUMMARY | 2023-10-02 22:37 | XMS_ITS | Encounter Summary ---
Author Organization [facility] Address [address] [place] [address] Care Team Providers Care Leading Firefighter Name Role Phone Unavailable Primary Care Provider Unavailabl e Encounter Details Date Type Department Care Team (Late st Contact Info) Description 01/23/2010 Results Only [facility] Laboratory Services - [facility] [address] [place], [place] [id number] Kylee Vaca MD [address] [place] [address] Social History Tobacco Use Types [...] ? ROHAN, LOIDA ? Accession #: ? [id number] ? : ? 1970 (Age: 39) ??F ? Collect Date: ? 01/23/2010 ? Location: ? [facility] ? Receive Date: ? 01/24/2010 ? Provider: KYLEE VACA MD ? Copy to: DARWIN LEMON CARGOMAN ? Final Pathologic Diagnosis: ? Skin of [...] MD PATHOLOGY ORDERABLES [facility] [address] [place] [address] documented in this encounter Visit Diagnoses Not on filedocumented in this encounter
--- OUTSIDE RECORDS SUMMARY | 2023-10-02 22:37 | XMS_ITS | Encounter Summary ---
Author Organization [facility] Address [address] [place] [address] Care Team Providers Care Forms Examiner Name Role Phone Unknown, Provider Primary Care Provider Encounter Details Date Type Department Care Team (Late st Contact Info) Description 07/27/2022 Lab Requisition [facility] Pathology & Laboratory Medicine - [facility] [address] [place] [address] Outr Resulting Lab, Provider Social History Tobacco [...] Lyme Ab Negative Negative 07/28/2022 10:37 EDT [facility] Blood VENOUS BLOOD / Unknown 07/27/2022 10:39 EDT 07/27/2022 16:45 EDT Provider Outr Resulting Lab IMMUNOLOGY A ND SEROLOGY ORDERABLES [facility] [address] [place] [address] documented in this encounter Visit Diagnoses Not on filedocumented in this encounter Care Teams Forms Examiner Relationship Specialty Start Date End Date Unknown, ProviderMD PCP - General 01/28/10 documented as of this encounter
--- OUTSIDE RECORDS SUMMARY | 2023-10-02 22:37 | XMS_ITS | Referral Summary ---
Author Organization [facility] Address [address] [place] [address] Care Team Providers Care Building Construction Inspector Name Role Phone Unknown, Provider Primary Care [...] C Antibody Negative Negative 05/20/2020 11:15 EDT [facility] Blood VENOUS BLOOD / Unknown 05/17/2020 14:00 EST 05/19/2020 16:37 EDT Provider Outr Resulting Lab CHEMISTRY & BLOOD GAS ORDERABLES [facility] [address] [place] [address] from Last 3 Months or Most Recently Relevant to Health Maintenance Care Teams Building Construction Inspector Relationship Specialty Start Date End Date Unknown, Provider, PCP - General 01/28/10
--- OUTSIDE RECORDS SUMMARY | 2023-10-02 22:37 | XMS_ITS | Encounter Summary ---
Author Organization [facility] Address [address] [place] [address] Care Team Providers Care Radiophone Operator Name Role Phone Unknown, Provider Primary Care Provider [phone] Encounter Details Date Type Department Care Team (Late st Contact Info) Description 09/16/2020 Lab Requisition [facility] Pathology & Laboratory Medicine - [address] [address] Outr Resulting Lab, Provider Social History Tobacco [...] IgE 13 <158 IU/mL 09/18/2020 8:45 EDT [facility] Blood VENOUS BLOOD / Unknown 09/16/2020 13:43 EDT 09/16/2020 20:51 EDT Provider Outr Resulting Lab CHEMISTRY & BLOOD GAS ORDERABLES [facility] [address] [place] [address] * EXTRACTABLE NUCLEAR ANTIGEN PANEL (09/16/2020 13:43 EDT) SSA Antibody 1.2 <20.0 Units 09/17/2020 15:28 EDT [facility] Comment: ? Negative: <20.0 Units ? Weak Positive: 20.0 - 39.9 Units ? Moderate Positive: 40.0 - 80.0 Units ? Strong Positive: >80.0 Units Results were obtained with the [employer] QUANTA Lite SS-A VAIBHAV. ??SS-A values obtained with different manufacturers' assay methods may not be used interchangeably. ??The magnitude of the reported IgG levels cannot be correlated to an endpoint titer. SSB Antibody 4.9 <20.0 Units 09/17/2020 15:28 [facility] Comment: ? Negative: <20.0 Units ? Weak Positive: 20.0 - 39.9 Units ? Moderate Positive: 40.0 - 80.0 Units ? Strong Positive: >80.0 Units Results were obtained with the [employer] QUANTA Lite SS-B VAIBHAV. ??SS-B values obtained with different manufacturers' assay methods may not be used interchangeably. ??The magnitude of the reported IgG levels cannot be correlated to an endpoint titer. SM (Alcantar) Antibody 3.4 <20.0 Units 09/17/2020 15:28 [facility] Comment: ? Negative: <20.0 Units ? Weak Positive: 20.0 - 39.9 Units ? Moderate Positive: 40.0 - 80.0 Units ? Strong Positive: >80.0 Units Results were obtained with the [employer] QUANTA Lite Sm VAIBHAV. ??Sm values obtained with different manufacturers' assay methods may not be used interchangeably. ??The magnitude of the reported IgG levels cannot be correlated to an endpoint titer. UNEMPLOYMENT CLAIMS ADJUDICATOR Antibody 1.5 <20.0 Units 09/17/2020 15:28 EDT [facility] Comment: ? Negative: <20.0 Units ? Weak Positive: 20.0 - 39.9 Units ? Moderate Positive: 40.0 - 80.0 Units ? Strong Positive: >80.0 Units Results were obtained with the [employer] Quanta Lite UNEMPLOYMENT CLAIMS ADJUDICATOR VAIBHAV. UNEMPLOYMENT CLAIMS ADJUDICATOR values obtained with different transmission system operator's assay methods may not be used interchangeaby. ??The magnitude of the reported IgG levels cannot be be correlated to an endpoint titer. A positive result in the [employer] Lite UNEMPLOYMENT CLAIMS ADJUDICATOR VAIBHAV indicates the presence of antibodies reactive with the UNEMPLOYMENT CLAIMS ADJUDICATOR/Sm complex but cannot distinguish between anti-Sm and anti-UNEMPLOYMENT CLAIMS ADJUDICATOR activity. Blood VENOUS BLOOD / Unknown 09/16/2020 13:43 EDT 09/16/2020 20:51 EDT Provider Outr Resulting Lab IMMUNOLOGY A ND SEROLOGY ORDERABLES Performing Organization Address City/State/[facility] Co de Phone Number [facility] [address] [place] [address] * (ABNORMAL) ANTI NUCLEAR AB (KATHRINE), IFA (09/16/2020 13:43 EDT) KATHRINE Interpretation Positive(A) Negative 09/17/2020 15:08 EDT [facility] Comment: For titers greater [...] Pattern 1 1:160 Speckled 09/17/2020 15:08 EDT [facility] Blood VENOUS BLOOD / Unknown 09/16/2020 13:43 EDT 09/16/2020 20:51 EDT Narrative [facility] - 09/17/2020 15:08 EDT Results were obtained with the [employer] NOVA Lite HEp-2 KATHRINE Kit by indirect immunofluorescence. Provider Outr Resulting Lab IMMUNOLOGY A ND SEROLOGY ORDERABLES [facility] [address] [place] [address] documented in this encounter Visit Diagnoses Not on filedocumented in this encounter Care Teams Radiophone Operator Relationship Specialty Start Date End Date Unknown, Provider, PCP - General 01/28/10 documented as of this encounter
--- OUTSIDE RECORDS SUMMARY | 2023-10-02 22:38 | XMS_ITS | Clinical Summary ---
Author Organization [facility] Address [address] [facility] [place] [address] Care Team Providers Care Film Loader Name Role Phone Polo Pearce Primary Care Provider [phone] Allergies Active Allergy Reactions Criticality Noted Date [...] spacer Active fluticasone propionate (FLONASE) 50 mcg/actuation Min[place], Suspension 1 spray by Each Nare route [...] 04/29/2020 Overview (07/26/2023): 05/2021: subacute, presented to [facility] with RUQ pain, weight gain, [...] sarcoid. Anterior scar pattern 06/2023: Admission at [facility] ([facility]). TTE with low-normal EF, though anterior [...] consider referral to the clare Mcdaniels of [facility] expertise IN the meantime, increase torsemide to [...] discharge summary and medication administration record from [facility] to see what was given to [...] diagnosis of hypertension 06/07/2021 07/23/2021 Non-ST elevation [place] (NSTEMI) 08/29/2019 03/16/2022 Rhinitis, nonallergic, chronic 06/26/2010 07/30/2022 Encounters Date Type Department Care Team Description 09/20/2023 [place] [address] Vito Pearce MD 09/20/2023 External [place] [address] 08/28/2023 8:27 PM EDT - 09/10/2023 5:31 PM EDT Hospital Encounter Heart and Vascular Unit Level 3 Wing B at [place] [phone] Kia Angelo MD Etiwy, Muhammad, MD Ramachandra, [...] PM EDT Ancillary Procedure Radiology Library at [place] [phone] Jaspreet Kinsey MD 08/28/2023 Telephone Cardiology [place] [address] Ciro Lovell MD 08/28/2023 External Results Administration [place] [phone] 08/25/2023 1:05 PM EDT Laboratory Appointment Lab 3L [place] [phone] Heart failure with preserved ejection fraction, unspecified HF chronicity; Chronic kidney disease, unspecified CKD stage; Altered bowel function; Depression, unspecified depression type 08/25/2023 12:55 PM EDT Laboratory Appointment Lab 3L [place] [address] 08/25/2023 10:00 AM EDT Office Visit Gastroenterology at [address] CalvMary mazariegos APRN Altered bowel function; Depression, unspecified depression type; Gastroesophageal reflux disease, unspecified whether esophagitis present; Esophageal dysphagia; Nausea without vomiting; Early satiety 08/25/2023 Travel 08/17/2023 11:53 AM EDT - 08/17/2023 11:59 PM EDT Hospital Encounter Non-[place] [address] Porsha Mcdaniels MD Chest pain, unspecified type Discharge Disposition: Home 08/17/2023 11:52 AM EDT Hospital Encounter [place] [phone] Porsha Mcdaniels MD Chest pain, unspecified type Discharge Disposition: Home 08/17/2023 Travel 08/03/2023 9:30 AM EDT Office [place] [phone] Judith Butler APRN Mesenteric ischemia 08/03/2023 8:30 AM EDT Tech [place] [phone] Eladio Boyer Mesenteric ischemia 08/03/2023 Travel 07/29/2023 8:00 AM EDT Office Visit Cardiology at [address] [address] Porsha Mcdaniels MD Chest pain, unspecified type 07/29/2023 Travel 07/26/2023 3:20 PM EDT Office Visit Cardiology at [address] [phone] Jaspreet Kinsey MD Heart failure with preserved ejection fraction, unspecified HF chronicity; Paroxysmal atrial fibrillation; SVT (supraventricular tachycardia); Chest pain, unspecified type 07/26/2023 Travel 07/13/2023 Telephone Cardiology at [address] [address] Sydney Gamez RN 07/12/2023 Refill Cardiology at [address] [place] [address] Jaspreet Kinsey MD 07/08/2023 Orders [place] [address] Porsha San MD Chronic abdominal pain 07/07/2023 2:05 PM EDT Anesthesia [place] [address] Constantine Velez MD 07/07/2023 1:00 PM EDT - 07/07/2023 2:00 PM EDT [place] [address] Lashonda Villa MD EGD WITH BIOPSY (WRVU 2.39) 06/14/2023 11:01 PM EDT - 07/09/2023 4:44 PM EDT Hospital Encounter Heart and Vascular Unit Level 4 [place] [address] Jaspreet Kinsey MD Ruiz, Xavier L, MD Ramachandra, Nayana, MD Battula, MD Zuri Hoyt Frank [...] Recorded In the past 12 months has [employer], gas, oil, or water [employer] threatened to shut off services in your [...] a skilled nursing (including now)? No 06/15/2023 Housing Stability Vital Sign Answer Mitchell e Recorded In the last 12 months, was t here a time when you were not able to pay the mortgage or rent on time? No 08/30/2023 In the past 12 months, how m any times have you moved where you were living? 1 08/30/2023 At any time in the past 12 m [facility], were you homeless or living in a skilled nursing (including now)? No 08/30/2023 IPV Inpatient Questions [...] EDT Tech [place] [phone] [place]anning Esc[place] 10/08/2023 9:30 AM EDT Office [place] [phone] MD [facility] [place] [address] 10/21/2023 10:30 AM EDT Appointment Nuclear Medicine at [place] [phone] Mary Reyes [facility] [place] [address] 10/21/2023 11:30 AM EDT Appointment [place] [phone] Mary Reyes [facility] [place] [address] 10/21/2023 12:30 PM EDT Appointment [place] [phone] Mary Reyes [facility] [place] [address] 10/21/2023 1:30 PM EDT Appointment [place] [phone] Mary Reyes [facility] [place] [address] 10/21/2023 2:30 PM EDT Appointment [place] [phone] Mary Reyes [facility] [place] [address] 10/26/2023 4:00 PM EDT Office Visit Cardiology at [address] [phone] Jaspreet Kinsey MD [facility] [place] [address] 10/28/2023 9:00 AM EDT Office [place] [address] 10/29/2023 10:00 AM EDT Clinical [place] [address] 10/29/2023 10:15 AM EDT Procedure [place] [address] 11/01/2023 5:00 PM EDT Office [place] [address] Selene Browning, PhD [facility] [place] [address] 11/22/2023 4:40 PM EDT Office Visit Cardiology at [address] [phone] Porsha Mcdaniels MD [facility] [place] [address] 12/13/2023 10:00 AM EDT Clinical [place] [phone] [address] [facility] [place] [address] Health Maintenance Due Date Last Done Comments [...] history exists Medical Devices Implanted Type Area Manager Aviation Device Identifier Shelf Expiration Date Model / Serial / Lot Stent Graft [id number] cm Il Viabahn Vbx ([id number]) ([employer]ore[employer])-4/2 08/2023 Implanted:Qty : 1 on 07/02/[address] MD IMPLANTS Arterial [employer] AN [id number] / / [id number] Description:sma stent placem ent Procedures Procedure Name Priority Date/Time Associated Diagnosis Comments NON DH EXTERNAL RADIOLOGY EXAM Routine 09/20/2023 10:43 PM EDT NON DH EXTERNAL RADIOLOGY EXAM Routine 09/20/2023 10:42 PM EDT NON DH EXTERNAL RADIOLOGY EXAM Routine 09/20/2023 10:42 PM EDT ECG SCAN Routine 09/20/2023 4:51 PM EDT [...] unspecified CKD stage HC DNA AB DS (UMATILLA TRIBE) Routine 08/25/2023 11:28 AM EDT Heart failure [...] Routine 07/07/2023 2:25 PM EDT Colonoscopy, Biopsy ([id number]) 07/07/2023 2:10 PM EDT post prandial pain Upper Gi Endoscopy, Biopsy ([id number]) 07/07/2023 2:10 PM EDT post prandial pain [...] 8:04 AM EDT DIFFERENTIAL, AUTOMATED Routine 07/05/19 5:05 AM EDT HEMOGRAM Routine 07/05/2023 5:05 [...] 8:58 AM EDT DIFFERENTIAL, AUTOMATED Routine 07/04/19 3:47 AM EDT HEMOGRAM Routine 07/04/2023 3:47 [...] & AUTO DIFF Routine 3:07 AM EDT from Last 3 Months Results * Non DH External Radiology Exam (09/20/2023 10:43 PM EDT) Only the most recent of3 resultswithin the time period is included. Anatomical Region Laterality Modality Magnetic Resonan ce Historical Provider MD ESPINOZA MRI ORDERABLE S * Scan Doc: ECG (09/20/2023 4:51 PM EDT) Only the most recent of2 resultswithin the time period is included. Historical Provider MEDIA MGR SCAN EX T ORDR/RSLT * Scan Doc: Telemetry Strips (09/10/2023 8:40 AM EDT) Only the most recent of73 resultswithin the time period is included. Narrative 09/10/2023 8:40 AM EDT Ordered by an unspecified provider. Scanning Provider MEDIA MGR SCAN EXT O RDR/RSLT * (ABNORMAL) Hemogram (09/10/2023 4:17 AM EDT) Only the most recent of21 resultswithin the time period is included. WBC 7.6 4.0 - 9.5 x10(3)/[facility] LABORATORY RBC 4.15 4.00 - 5.21 x10(6)/[facility] LABORATORY Hemoglobin 13.0 11.7 - 15.5 g/dL [facility] Hematocrit 39.2 35.7 - 45.8 % [facility] MCV 94.5(H) 82.6 - 94.4 fL [facility] MCH 31.3 27.1 - 32.0 pg [facility] MCHC 33.2 31.7 - 35.0 g/dL [facility] Platelets 267 145 - 357 x10(3)/[facility] LABORATORY RDWSD 44.6 37.0 - 46.0 fL [facility] RDWCV 13.1 11.5 - 14.1 % [facility] MPV 10.3 7.6 - 12.9 fL [facility] nRBC % Auto 0.0 % [facility] nRBC Abs Auto 0.000 0.000 - 0.000 x10(3)/[facility] LABORATORY Blood 09/10/2023 4:17 AM EDT 09/10/2023 4:29 AM EDT Narrative Resulting Agency Comment Spec In Lab Eufemia Copeland MD HEMATOLOGY ORDERAB LES [facility] [place] [address] * Differential, Automated (09/10/2023 4:17 AM EDT) Only the most recent of21 resultswithin the time period is included. Neutrophils % 54.4 % [facility] Neutr Abs (ANC) 4.17 1.70 - 6.10 x10(3)/[facility] LABORATORY Lymphocytes % 33.2 % [facility] Lymphocytes Abs 2.5 0.9 - 3.2 x10(3)/[facility] LABORATORY Monocytes % 8.4 % [facility] Monocyte Abs 0.6 0.3 - 0.9 x10(3)/[facility] LABORATORY Eosinophils % 3.0 % [facility] Eosinophils Abs 0.2 0.0 - 0.4 x10(3)/[facility] LABORATORY Basophils % 0.7 % [facility] Basophils Abs 0.0 0.0 - [...] Gran Abs 0.02 0.00 - 0.04 x10(3)/mcL [facility] Blood 09/10/2023 4:17 AM EDT 09/10/2023 4:29 AM EDT Narrative Resulting Agency Comment Spec In Lab Eufemia Copeland MD HEMATOLOGY ORDERAB LES Performing Organization Address City/[facility]/ZIP Co de Phone Number [facility] [place] [address] * Magnesium (09/10/2023 4:17 AM EDT) Only the most recent of22 resultswithin the time period is included. Magnesium 0.99 0.69 - 1.07 mmol/L [facility] Blood 09/10/2023 4:17 AM EDT 09/10/2023 4:29 AM EDT Narrative Resulting Agency Comment Spec In Lab Eufemia Copleand MD CHEMISTRY ORDERABL ES Performing Organization Address [facility]/ZIP Co de Phone Number [facility] [place] [address] * (ABNORMAL) Basic Metabolic Panel (non-fasting) (09/10/2023 4:17 AM EDT) Only the most recent of26 resultswithin the time period is included. Glucose Lvl 92 65 - 199 mg/dL [facility] Comment:Diabetes: >=200 mg/d L plus symptoms BUN 27(H) 8 - 18 mg/dL [facility] Creatinine 1.39(H) 0.70 - 1.20 mg/dL [facility] [facility] [place] [address] * EKG 12 Lead (09/08/2023 4:01 AM EDT) Only the most recent of16 resultswithin the time period is included. Ventricular rate 59 BPM MUSE SYSTEM Atrial Rate 59 BPM MUSE SYSTEM P-R Interval 192 ms MUSE SYSTEM QRS Duration 92 ms MUSE SYSTEM Q-T Interval 452 ms MUSE SYSTEM QTC Calculated (Bezet) 447 ms MUSE SYSTEM Calculated P [place] 38 degrees MUSE SYSTEM Calculated R [place] 51 degrees MUSE SYSTEM Calculated T [place] -18 degrees MUSE SYSTEM INTERPRETATION Sinus bradycardia Diffuse ST depression, consider subendocardial injury Abnormal ECG When compared with ECG of 03-SEP-2023 06:02, Premature atrial complexes are no longer Present QT has shortened I personally reviewed the tracing and edited the fellows interpretation Confirmed by fellow Vito Pearce ([id number]) on 09/08/2023 7:40:32 AM Confirmed by MD Petey, Kia ([id number]) on 09/08/2023 2:12:57 PM MUSE SYSTEM 09/08/2023 4:01 AM EDT 09/08/2023 2:12 PM EDT Eufemia Copeland MD ECG ORDERABLES MUSE SYSTEM * CT Abdomen & Pelvis w Contrast (09/05/2023 4:25 PM EDT) WORKSTATION ID [id number] RAD Anatomical Region Laterality Modality Abdomen, Pelvis [...] have questions please contact the health career education 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 ? Electronically signed by: Lalitha Sanders MD, [facility] ([phone]), at 09/06/2023 9:47 AM Narrative 09/06/2023 9:47 [...] who have questions please contactthe health career education 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 Samantha Broussard MD IMG CT ORDERABLES * Miscellaneous Lab request (09/05/2023 1:58 AM EDT) [facility] Lab Result Request received in lab. [facility] Blood 09/05/2023 1:58 AM EDT 09/05/2023 2:14 AM EDT Narrative Resulting Agency Comment Spec In Lab Samantha Broussard MD HEMATOLOGY ORDERABLE S Performing Organization Address [facility] Co de Phone Number [facility] [place] [address] * IgG 4 (09/05/2023 1:58 AM EDT) IgG 4 47.7 3.9 - 86.4 mg/dL [facility] Blood 09/05/2023 1:58 AM EDT 09/05/2023 2:13 AM EDT Narrative Resulting Agency Comment Spec In Lab Samantha Broussard MD IMMUNOLOGY ORDERABLE S Performing Organization Address [facility] de Phone Number [facility] [place] [address] * (ABNORMAL) Potassium (09/04/2023 9:13 AM EDT) Only the most recent of2 resultswithin the time period is included. Pathologist [facility] Potassium 3.2(L) 3.5 - 5.0 mmol/L WHITE [...] Broussard MD CHEMISTRY ORDERABLES Performing Organization Address [facility] Co de Phone Number [facility] [place] [address] * (ABNORMAL) Protein Electrophoresis, serum (09/03/2023 2:39 AM EDT) Only the most recent of2 resultswithin the time period is included. Total Prot Elec 7.9 6.1 - 8.0 g/dL [facility] Albumin Elect 4.87 3.20 - 5.20 g/dL [facility] Alpha1-Globul in 0.21 0.10 - 0.30 g/dL [facility] Alpha2-Globul in 1.03(H) 0.40 - 0.90 g/dL [facility] Beta Globulin 0.90 0.50 - 1.00 g/dL [facility] Gamma Globulin 0.88 0.50 - 1.30 g/dL [facility] M1 Band None Detected None Detected [facility] Blood 09/03/2023 2:39 AM EDT 09/03/2023 2:46 AM EDT Narrative Resulting Agency Comment Spec In Lab Lorna Herr MD CHEMISTRY ORDERABLES Performing Organization Address [facility] Co de Phone Number [facility] [place] [address] * Protein Electrophoresis, urine, random (09/02/2023 9:30 PM EDT) U Protein Ran <6 0 - 12 mg/dL [facility] U Albumin See Note [facility] Comment:No protein visible v ia electrophoresis due to a low urine total protein. U Globulin Not Perf [facility] Comment:No protein visible v ia electrophoresis due to a low urine total protein. U M Band Not Perf [facility] Comment:No protein visible v ia electrophoresis due to a low urine total protein. U PEP Comments See Note [facility] Comment: Total Protein concentration too low to fractionate using current electrophoretic technique. No protein visible via electrophoresis due to a low urine total protein. Urine 09/02/2023 9:30 PM EDT 09/02/2023 9:35 PM EDT Narrative Resulting Agency Comment Spec In Lab Lorna Herr MD URINE ORDERABLES Performing Organization Address [facility] Co de Phone Number [facility] [place] [address] * (ABNORMAL) Troponin (09/02/2023 8:16 PM EDT) Only the most recent of6 resultswithin the time period is included. Troponin-T HS 24(H) <=14 ng/L [facility] troponin value can be found in the [facility] Test Catalog Troponin - [facility] Test Catalog Reference: Fourth [place] Definition of Myocardial Infarction. Journal of the [place] 2018;72:2830-3117 Blood 09/02/2023 8:16 PM EDT 09/02/2023 8:25 PM EDT Narrative Resulting Agency Comment Spec In Lab Lorna Herr MD CHEMISTRY ORDERABLES [facility] [place] [address] * (ABNORMAL) pro-Brain Natriuretic Peptide (09/02/2023 5:05 PM EDT) Only the most recent of2 resultswithin the time period is included. ProBNP 985(H) <=124 pg/mL [facility] Blood 09/02/2023 5:05 PM EDT 09/02/2023 5:17 PM EDT Narrative Resulting Agency Comment Spec In Lab Lorna Herr MD CHEMISTRY ORDERABLES Performing Organization Address City/[facility]/ZIP Co de Phone Number [facility] [place] [address] * Phosphorus (08/31/2023 5:03 PM EDT) Only the most recent of8 resultswithin the time period is included. Phosphorus 3.8 2.5 - 4.5 mg/dL [facility] Blood 08/31/2023 5:03 PM EDT 08/31/2023 5:08 PM EDT Narrative Resulting Agency Comment Spec In Lab Eufemia Copeland MD CHEMISTRY ORDERABL ES Performing Organization Address [facility] Co de Phone Number [facility] [place] [address] * Heparin (unfractionated) Level (08/30/2023 3:09 AM EDT) Only the most recent of14 resultswithin the time period is included. Heparin UFH Level 0.46 IU/mL [facility] [...] Narrative Resulting Agency Comment Spec In Lab Felix Mcmanus MD HEMATOLOGY ORDERABLE S [facility] [place] [address] * ECHO LMTD W CONTRAST W LMTD SPEC DOPP COLOR DOPP (08/29/2023 11:35 AM EDT) EF 50 HEART[facility] SYSTEM Anatomical Region Laterality Modality Cardiac Other 08/29/2023 9:47 AM EDT Narrative 08/29/2023 12:27 PM EDT [address] [place] [address] ? Echocardiogram Report Name: LOIDA ROQUE ? Study Date: 08/29/2023 09:47 AMBP: 100/55 mmHg ? Patient Location: [place] 0[address] A : 1970 ? Height: 163 cm ? Account: [id number] Age: 53 yrs ? Weight: 102 kg Gender: Female ?BSA: 2.1 m2 Ordering Physician: FELIX MCMANUS Referring Physician: SKIP HUMPHREY Performed By: Nalini Alvares RDCS Exam Location: [facility]. Interpretation Summary Left ventricle is normal in size. There is low normal global systolic function, with focal hypokinesis in the anteroseptum as ascribed. Right ventricle is not well visualized. No hemodynamically significant valve disease. Compared to prior studies over the past 6 months, there has been stable global LV systolic function, with oscillating regional function of the anterior wall. Procedure Limited - [id number]. Image enhancement Optison was used for left [...] mass(C)dI: 107.6 grams/m2 Doppler MV E max ilir: 55.0 cm/sec MV A max ilir: 41.4 cm/sec MV E/A: 1.3 MV dec time: 0.08 sec Lat Peak E' Ilir: 5.5 cm/sec E/e' (lat): 9.9 Med Peak E' Ilir: 4.4 cm/sec E/e' (med): 12.6 E/e' Average: 11.3 TR max ilir: 213.4 cm/sec RVSP(TR): 21.2 mmHg I ?WMSI = 1.13 ? % Normal = 88 ?Segments ??Size X - Cannot ?? 1 - Normal ?? 2 - ? 3 - Akinetic 4 - ?1-2 ? small Interpret ? Hypokinetic ?Dyskinetic ?? 3-5 ? moderate 5 - ? 6-14 ?large Aneurysmal ?15-16 ?? diffuse Procedure Note Jaspreet Kinsey MD - 08/29/2023 1 [place] [address] Echocardiogram Report Name: LOIDA ROQUE Study Date: 409:47 AMBP: 100/55 mmHg Patient Location: [address] : 1970 Height: 163 cm Account: [id number] Age: 53 yrs Weight: 102 kg Gender: Female BSA: 2.1 m2 Ordering Physician: FELIX MCMANUS Referring Physician: SKIP HUMPHREY Performed By: Nalini Alvares RDCS Exam Location: [facility]. Interpretation Summary Left ventricle is normal in size. There is low normal global systolicfunction, with focal hypokinesis in the anteroseptum as ascribed. Right ventricle is not well visualized. No hemodynamically significant valve disease. Compared to prior studies over the past 6 months, there has been stableglobal LV systolic function, with oscillating regional function of the anteriorwall. Procedure Limited - [id number]. Image enhancement Optison was used for left [...] mass(C)dI: 107.6 grams/m2 Doppler MV E max ilir: 55.0 cm/sec MV A max ilir: 41.4 cm/sec MV E/A: 1.3 MV dec time: 0.08 sec Lat Peak E' Ilir: 5.5 cm/sec E/e' (lat): 9.9 Med Peak E' Ilir: 4.4 cm/sec E/e' (med): 12.6 E/e' Average: 11.3 TR max ilir: 213.4 cm/sec RVSP(TR): 21.2 mmHg I WMSI = 1.13 % Normal = 88 SegmentsSize X - Cannot 1 - Normal 2 - 3 - Akinetic 4 - 1-2small Interpret Hypokinetic Dyskinetic 3-5moderate 5 - 6-14large Aneurysmal 15-16diffuse Felix Mcmanus MD ECHO ORDERABLES * CRP, acute inflammation (08/29/2023 4:01 AM EDT) CRP <3.0 <=4.9 mg/L [facility] Blood Venous Draw / Unknown 08/29/2023 4:01 AM EDT 08/29/2023 4:13 AM EDT Narrative Resulting Agency Comment Spec In Lab Eufemia Copeland MD CHEMISTRY ORDERABL ES Performing Organization Address [facility] de Phone Number [facility] [place] [address] * Green Tube HOLD (08/29/2023 4:01 AM EDT) Green Hold Sample in lab. [facility] Blood Venous Draw / Unknown 08/29/2023 4:01 AM EDT 08/29/2023 4:09 AM EDT Felix Mcmanus MD CHEMISTRY ORDERABLES Performing Organization Address [facility] Phone Number [facility] [place] [address] * Sedimentation rate (08/29/2023 4:01 AM EDT) Sed Rate 11 2 - 39 mm/hr [facility] Comment: Effective February 15, [...] MD HEMATOLOGY ORDERAB LES Performing Organization Address [facility] Co de Phone Number [facility] [place] [address] * (ABNORMAL) Hepatic Function Panel (08/28/2023 9:07 PM EDT) Only the most recent of4 resultswithin the time period is included. Total Protein 6.6 6.1 - 8.0 g/dL [facility] Albumin 4.2 3.2 - 5.2 g/dL [facility] AST 32(H) 0 - 30 unit/L [facility] ALT 28 0 - 30 unit/L [facility] Alk Phos 52 35 - 105 unit/L [facility] [facility] Total Bilirubin 0.6 0.2 - 1.3 mg/dL [facility] Bili, Direct 0.2 0.0 - 0.3 mg/dL [facility] Blood 08/28/2023 9:07 PM EDT 08/28/2023 9:12 PM EDT Narrative Resulting Agency Comment Spec In Lab Felix Mcmanus MD CHEMISTRY ORDERABLES Performing Organization Address [facility] de Phone Number [facility] [place] [address] * Lipid Panel (Reflex Direct LDL) (08/28/2023 9:07 PM EDT) Pathologist [facility] Chol, Total 203 mg/dL [facility] Comment: Desirable: ? <200 mg/dL Borderline High: 200-239 mg/dL Higher: ?>gf=066 mg/dL Triglycerides 146 mg/dL [facility] Comment: Normal: ?<150 mg/dL Borderline High: 150-199 mg/dL High: ?200-499 mg/dL Very High: ? >ez=211 mg/dL HDL 52 mg/dL [facility] Comment: Females: High Risk: <50 mg/dL Males: High Risk: <40 mg/dL LDL Cholesterol 122 mg/dL [facility] Comment: Desirable: ? <100 mg/dL Above Desirable: 100-129 mg/dL Borderline High: 130-159 mg/dL High: ?160-189 mg/dL Very High: ? >ko=061 mg/dL Lipid Interpretation See Note [facility] [...] ACC/AHA Guidelines (most recently Ysabel et al. [facility] 12/09/21): For individuals with atherosclerotic cardiovascular disease (ASCVD)or LDL >bb=413 mg/dL, use a high-intensity statin (40-80 mg [...] Narrative Resulting Agency Comment Spec In Lab Felix Mcmanus MD CHEMISTRY ORDERABLES Performing Organization Address [facility] Co de Phone Number [facility] [place] [address] * Film Library- Storage Only CT Chest (08/28/2023 1:00 PM EDT) Narrative [facility] - 08/28/2023 1:00 PM EDT This exam is auto-finalizing. It's purpose is for storage only. Jaspreet Kinsey MD IMG FILM LIBRARY ORD ERABLES Performing Organization Address [facility] Co de Phone Number [place], [place] * (ABNORMAL) Free Light Chains, Serum (08/25/2023 11:28 AM EDT) [facility] Hooks Free Light Chain 3.09(H) 0.72 - 2.75 mg/dL [facility] Lambda Free Light Chain 1.65 0.57 - 2.15 mg/dL [facility] Hooks Lambda FLC Ratio 1.8727 0.4000 - 2.5800 [facility] Blood 08/25/2023 11:2 8 AM EDT 08/25/2023 11:36 AM EDT Narrative Resulting Agency Comment Spec In Lab Jaspreet Kinsey MD CHEMISTRY ORDERABLES Performing Organization Address [facility] Co de Phone Number [facility] [place] [address] * Lyme IgG & IgM Antibody (08/25/2023 11:28 AM EDT) [facility] Lyme Screening Antibody Negative Negative [facility] Lyme Ab Comment Negative result does not exclude possibility of infection. [facility] Comment: Please note that as of 07/14/2022 that this testing is performed by the Special Chemistry Laboratory at [facility]. This change in testing location is associated with a change in testing methodology. Blood 08/25/2023 11:2 8 AM EDT 08/26/2023 7:26 AM EDT Narrative Resulting Agency Comment Spec In Lab Jaspreet Kinsey MD IMMUNOLOGY ORDERABLE S Performing Organization Address [facility] Co de Phone Number [facility] [place] [address] * Iron and TIBC (08/25/2023 11:28 AM EDT) Pathologist [facility] Iron 113 30 - 150 mcg/dL [facility] TIBC 338 250 - 450 mcg/dL [facility] Iron Saturation 33 20 - 50 % [facility] Blood 08/25/2023 11:2 8 AM EDT 08/25/2023 11:36 AM EDT Narrative Resulting Agency Comment Spec In Lab Jaspreet Kinsey MD CHEMISTRY ORDERABLES Performing Organization Address [facility] Co de Phone Number [facility] [place] [address] * Tissue transglutaminase, IgA (08/25/2023 11:28 AM EDT) Pathologist [facility] TTG IgA Ab 0.6 <=10.0 u/ml [facility] Comment: Negative: ??<7 units/mL Indeterminate: 7-10 units/mL Positive: ??>10 units/mL Blood 08/25/2023 11:2 8 AM EDT 08/26/2023 7:26 AM EDT Narrative Resulting Agency Comment Spec In Lab Mary Reyes APRN IMMUNOLOGY ORDERAB LES Performing Organization Address City/[facility]/ZIP Co de Phone Number [facility] [place] [address] * Streptococcal Antibody Panel (08/25/2023 11:28 AM EDT) Pathologist [facility] ASO Titer 25 0 - 530 IU/mL [facility] Comment: Test Performed by: [facility] [place] [address] Supervisor Waterproofing: Nellie Haney Ph.D.; CLIA# [id number] DNase B Ab 146 0 - 300 unit/mL [facility] Comment: Test Performed by: [facility] - [address] [address] Supervisor Waterproofing: Nellie Haney Ph.D.; CLIA# [id number] Blood 08/25/2023 11:2 8 AM EDT 08/25/2023 1:02 PM EDT Narrative Resulting Agency Comment Spec In Lab Jaspreet Kinsey MD IMMUNOLOGY ORDERABLE S [facility] [place] [address] * KATHRINE Antibody Screen (08/25/2023 11:28 AM EDT) Pathologist [facility] Antinuclear Ab Negative Negative [facility] Comment: This antinuclear antibody (KATHRINE) screen is a qualitative test performed using a fluoroenzyme immunoassay on the Padinmotiondia 250 analyzer. This screen is designed to detect antibodies to U1RNP, SS-A/Ro, SS-B/La, centromere B, Scl-70, Dasia-1, and Sm(Alcantar) proteins in serum samples. Antibodies to other nuclear antibodies will not be detected with this assay. This KATHRINE screen is also performed in concert with a quantitative for IgG antibodies to dsDNA. dsDNA Ab 1.0 <=15.0 IU/mL [facility] Comment: <10 negative 10-15 [...] performed by the Special Chemistry Laboratory at [facility]. This change in testing location is associated with a change is testing method and reference intervals. Please review the results of this test in association with the posted reference intervals. Blood 08/25/2023 11:2 8 AM EDT 08/26/2023 7:26 AM EDT Narrative Resulting Agency Comment Spec In Lab Jaspreet Kinsey MD IMMUNOLOGY ORDERABLE S [facility] [place] [address] * IgA (08/25/2023 11:28 AM EDT) IgA 372 70 - 400 mg/dL [facility] Blood 08/25/2023 11:2 8 AM EDT 08/25/2023 11:37 AM EDT Narrative Resulting Agency Comment Spec In Lab Mary Reyes APRN IMMUNOLOGY ORDERAB LES Performing Organization Address [facility]/ZIP Co de Phone Number [facility] [place] [address] * IgG (08/25/2023 11:28 AM EDT) [facility] Signature IgG 1,114 700 - 1,600 mg/dL [facility] Comment: Pediatric Reference Intervals obtained from the [employer] Reference Interval project. http://www.sickkids.ca/caliperproject/index.html Blood 08/25/2023 11:2 8 AM EDT 08/25/2023 11:37 AM EDT Narrative Resulting Agency Comment Spec In Lab Mary Reyes APRN IMMUNOLOGY ORDERAB LES [facility] [place] [address] * Ferritin (08/25/2023 11:28 AM EDT) Ferritin 110 11 - 328 ng/mL [facility] Comment: Please note that as of 02/10/2023, the reference intervals for Ferritin have been updated. Blood 08/25/2023 11:2 8 AM EDT 08/25/2023 11:37 AM EDT Narrative Resulting Agency Comment Spec In Lab Jaspreet Kinsey MD CHEMISTRY ORDERABLES [facility] [place] [address] * NM PET CT Cardiac Pharmacologic Stress CT Component (08/17/2023 2:38 PM EDT) Pathologist [facility] WORKSTATION ID [id number] [facility] Anatomical Region Laterality Modality Positron Emissio n [...] have questions please contact the health career education 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 ? Electronically signed by: Clay Stanton MD, [facility] ([phone]), at 08/18/2023 2:49 PM Narrative 08/18/2023 2:49 PM EDT EXAMINATION: NM PET CT CARDIAC PHARMACOLOGIC STRESS AND REST, [place] PET CT CARDIAC PHARMACOLOGIC STRESS CT COMPONENT [...] Coronary calcifications. Bilateral ground glass opacities are [id number] Procedure Note Clay Stanton MD - 08/18/2023 EXAMINATION: [place] PET CT CARDIAC PHARMACOLOGIC STRESS AND REST, [place] PET CTCARDIAC PHARMACOLOGIC STRESS CT COMPONENT CLINICAL [...] Coronary calcifications. Bilateral ground glass opacities are [id number] IMPRESSION Moderate-sized scar in the apical septum [...] who have questions please contactthe health career education 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 Electronically signed by: Clay Stanton MD, [facility]([phone]), at 08/18/2023 2:49 PM Porsha Mcfarlane MD IMG PET ORDERABLES * NM PET CT Cardiac Pharmacologic Stress and Rest (08/17/2023 2:38 PM EDT) WORKSTATION ID [id number] RAD Anatomical Region Laterality Modality Positron Emissio [...] have questions please contact the health career education 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 ? Electronically signed by: Clay Stanton MD, [facility] ([phone]), at 08/18/2023 2:49 PM Narrative 08/18/2023 2:49 [...] Coronary calcifications. Bilateral ground glass opacities are [id number] IMPRESSION Moderate-sized scar in the apical septum [...] who have questions please contactthe health career education 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 Electronically signed by: Clay Stanton MD, [facility]([phone]), at 08/18/2023 2:49 PM Porsha Mcfarlane MD IMG PET ORDERABLES * Nuclear Pharmacologic Stress Cardiology (PET CT Mobile) (08/17/2023 2:17 PM EDT) Anatomical Region Laterality Modality Other Porsha Mcfarlane MD CARDIAC SERVICES OR DERABLES * Duplex Study Visceral Arteries, Comp (08/03/2023 8:36 AM EDT) Only the most recent of2 resultswithin the time period is included. Pathologist [facility] VB Text Report Department: Vascular Surgery Lab Patient: [id number] (LOIDA ROQUE) CPT: 75220 Referring Physician: MAMIE MARX ?? Phone: Indications: S/p SMA stenting (07/01) one month f/u, ? patency Findings: Unilateral ? Waveform ? PSV cm/s ??EDV cm/s ??Patent ?? Yuki Visceral Aorta ? 71 ?14 ? Celiac Artery, Proximal ??Sedgwick-Biphasic ? 100 ?22 ? Celiac Artery, Mid ? Sedgwick-Biphasic ?99 ?19 ? Celiac Artery, Distal ?Sedgwick-Biphasic ?94 ?18 ? Sup Mes Artery Proximal [...] within mesenteric artery stents may differ from ramona arteries, with thresholds for diagnosis of significant stenosis likely being somewhat higher in stented arteries than ramona.% To date, there is no evidence based consensus of stent velocity criteria. Therefore, the current interpretation is based on ramona artery thresholds. Previous Celiac/Mesenteric Studies: Date ? [...] follow Lloyd Keating MD PATHOLOGY/CYTOLOGY O RDERAFADUMO [facility] [place] [address] * Surgical Pathology Report (07/07/2023 2:25 PM EDT) FINAL DIAGNOSIS (AP) [id number] ? [facility]; A The signing pathologist has (i) examined [...] Sapna Verified: ??07/19/2023 13:25 ??Pathologist Performed at: ??-[facility] Dept. of Pathology, [place] [address] Inserting Machine Operator: Vangie Lu MD, FCAP, ??CLIA Certificate: [id number] SPECIMEN(S) SUBMITTED A - duodenal biopsies rule [...] toto ??in 2 cassettes labeled C1-C2. ??sdy 07/19/2023 1:25 PM EDT [facility] 07/07/2023 2:25 PM EDT Lashonda Villa MD PATHOLOGY/CYTOLOGY O RUMA [facility] [place] [address] * UPPER GI ENDOSCOPY (07/07/2023 1:40 PM EDT) UPPER GI ENDOSCOPY [facility] Endoscopy Procedure Date: 07/07/2023 1:40 PM ? Patient Name: Loida Roque ? Date of : 1970 ? Age: 53 ? Order #: [id number] ? Instrument Name: EG-760R- [id number] ? Procedure: ? Upper GI endoscopy Indications: ? Epigastric abdominal pain, Heartburn Providers: ? Lashonda Villa MD, [place] ? Systjim, Bouchra Mejia MD: ?Lloyd Keating Medicines: ? Monitored Anesthesia [...] * COLONOSCOPY (07/07/2023 1:39 PM EDT) COLONOSCOPY [facility] Endoscopy Procedure Date: 07/07/2023 1:39 PM ? Patient Name: Loida Roque ? Date of : 1970 ? Age: 53 ? Order #: [id number] ? Instrument Name: EC-760P- [id number] ? Procedure: ? Colonoscopy Indications: ? Abdominal pain, Diarrhea Providers: ? Lashonda Villa MD, [place] ? Systrom, Bouchra Mejia MD: ? Medicines: ? Monitored Anesthesia Care [...] ? was evaluated using the BBPS ? (Blessing Bowel Preparation Scale) ? with scores of: [...] Procedure Code(s): ? --- Professional --- ? 72706, Colonoscopy, flexible; with ? biopsy, single or multiple CPT copyright 2021 [employer]. All rights reserved. The codes documented in this report are preliminary and upon jailer/training officer review may be revised to meet current [...] GENERAL SURGICAL ORD ERABLES Performing Organization Address [facility] de Phone Number [employer] * Campylobacter Antigen (07/07/2023 12:10 PM EDT) Campylobacter Ag Immunoassay Negative for Campylobacter Antigen [facility] Stool 07/07/2023 12:1 0 PM EDT 07/07/2023 12:53 PM EDT Narrative Resulting Agency Comment Spec In Lab Pat Knight MD MICROBIOLOGY - GENER AL ORDERABLES Performing Organization Address [facility] de Phone Number [facility] [place] [address] * Shiga Toxin Detection (07/07/2023 12:10 PM EDT) Shiga Toxin Assay EIA Negative for Shiga Toxin 1 EIA Negative for Shiga Toxin 2 [facility] Stool 07/07/2023 12:1 0 PM EDT 07/07/2023 12:53 PM EDT Narrative Resulting Agency Comment Spec In Lab Pat Knight MD MICROBIOLOGY - GENER AL ORDERABLES [facility] [place] [address] * Stool culture (07/07/2023 12:10 PM EDT) Stool Culture No enteric pathogens isolated [facility] Stool 07/07/2023 12:1 0 PM EDT 07/07/2023 12:53 PM EDT Narrative Resulting Agency Comment Spec In Lab Pat Knight MD MICROBIOLOGY - GENER AL ORDERABLES Performing Organization Address City/[facility]/ZIP Co de Phone Number [facility] [place] [address] * Giardia/Cryptosporidium Antigens (MC/CGP/APD/NLH) (07/07/2023 12:38 AM EDT) Giardia Screen Negative Negative [facility] Comment:Examination for othe r intestinal parasites requires foreign travel history. Cryptosporidium Screen Negative Negative [facility] Stool 07/07/2023 12:3 8 AM EDT 07/07/2023 7:56 AM EDT Narrative Resulting Agency Comment Spec In Lab Pat Knight MD MICROBIOLOGY - GENER AL ORDERABLES Performing Organization Address City/[facility]/ZIP Co de Phone Number [facility] [place] [address] * Lipase (07/05/2023 5:44 PM EDT) Lipase 17 0 - 60 unit/L [facility] Blood 07/05/2023 5:44 PM EDT 07/05/2023 6:00 PM EDT Narrative Resulting Agency Comment Spec In Lab Lloyd Keating MD CHEMISTRY ORDERABLES Performing Organization Address [facility]/[place] de Phone Number [facility] [place] [address] * Amylase (07/05/2023 5:44 PM EDT) Amylase 35 28 - 100 unit/L [facility] Blood 07/05/2023 5:44 PM EDT 07/05/2023 6:00 PM EDT Narrative Resulting Agency Comment Spec In Lab Lloyd Keating MD CHEMISTRY ORDERABLES Performing Organization Address [facility] de Phone Number [facility] [place] [address] * XR Chest One View (07/03/2023 3:18 PM EDT) [facility] Signature WORKSTATION ID [id number] RAD Anatomical Region Laterality Modality Chest N/A Digital Radiogra phy Impressions 07/03/2023 3:27 PM EDT No pulmonary edema or pleural effusion Thank you for letting us participate in the care of this patient. ??If you are a health care provider and have any questions regarding this report, please contact the number below. ??For patients who have questions please contact the health career education 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 ? Electronically signed by: Itz Hayward MD, [facility] ??([phone]), at 07/03/2023 3:27 PM Narrative 07/03/2023 3:27 [...] who have questions please contactthe health career education 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 Electronically signed by: Itz Hayward MD, [facility]([phone]), at 07/03/2023 3:27 PM Bobby Edmonds MD IMG DX ORDERABLES * Arterial Duplex Leg, [facility] (07/03/2023 9:34 AM EDT) VB Text Report Department: Vascular Surgery Lab Patient: [id number] (LOIDA ROQUE) CPT: [id number] Referring Physician: BOBBY EDMONDS ?? Phone: Indications: ??right groin pain [...] of Report [facility] 07/03/2023 9:34 AM EDT Bobby Edmonds MD VASCULAR ORDERABLES Performing Organization Address City/State/[facility] Co de Phone Number [facility] from Last 3 Months Advance Directives Documents on File Type Date Recorded Patient Lap Machine Operator Expl anation Advance Directives and Livin g [...] Status decision made by: Patient Care Teams Film Loader Relationship Specialty Start Date End Date Polo Pearce PA [address] [place] [address] PCP - General Internal Medicine 06/09/21
--- OUTSIDE RECORDS SUMMARY | 2023-10-02 22:38 | XMS_ITS | Encounter Summary ---
Author Organization [facility] [place] [address] Care Team Providers Care Rat Trapper Name Role Phone Polo Pearce Primary Care Provider [phone] Encounter Details Date Type Department Care Team (Late st Contact Info) Description 09/20/2023 [place] [id number] Vito Pearce MD [facility] [place] [address] Social History Tobacco Use Types Packs/Day Years Used Date Smoking Tobacco: Never Smokeless Tobacco: Never Alcohol Use Standard Drinks/Week Comments Never 0 (1 standard drink = 0.6 oz pur e alcohol) [facility] Utilities Answer Date Recorded In the past 12 months has [place] [employer], gas, oil, or water [employer] threatened to shut off services in your [...] in a retirement (including now)? No 06/15/2023 Housing Stability Vital Sign Answer Mitchell e Recorded In the last 12 months, was t here a time when you were not able to pay the mortgage or rent on time? No 08/30/2023 In the past 12 months, how m any times have you moved where you were living? 1 08/30/2023 At any time in the past [address] [facility], were you homeless or living in a retirement (including now)? No 08/30/2023 DH IPV Inpatient [...] Referring provider: Jasen Montes MD Patient location: [facility] Past medical history: Microvascular disease; nonobstructive [...] oscillating regional function of the anterior wall. [facility] 04/2023 Coronary Angiography: Dominance: Right Left [...] AM EDT Tech [place] [phone] [address] [place] 10/08/2023 9:30 AM EDT Office Visit [place] [phone] MD [facility] [place] [address] 10/21/2023 10:30 AM EDT Appointment [place] [phone] Mary Reyes APRN [facility] [place] [address] 10/21/2023 11:30 AM EDT Appointment [place] [phone] Mary Reyes [place] [address] 10/21/2023 12:30 PM EDT Appointment [place] [address] Mary Reyes [facility] [address] 10/21/2023 1:30 PM EDT Appointment [place] [address] Mary Reyes [facility] [address] 10/21/2023 2:30 PM EDT Appointment [place] [address] [place] [address] 10/26/2023 4:00 PM EDT Office Visit Cardiology at [address] [phone] Jaspreet Kinsey MD [facility] [place] [address] 10/28/2023 9:00 AM EDT Office [place] [address] 10/29/2023 10:00 AM EDT Clinical [place] [address] 10/29/2023 10:15 AM EDT Procedure [place] [address] 11/01/2023 5:00 PM EDT Office Visit [place] [phone] Selene Browning, PhD [facility] [place] [address] 11/22/2023 4:40 PM EDT Office Visit Cardiology at [place] [phone] Porsha Mcdaniels MD [facility] [place] [address] 12/13/2023 10:00 AM EDT Clinical Support Gastroenterology at [place] [phone] [facility] [place] [address] documented as of this encounter Visit Diagnoses Not on filedocumented in this encounter Care Teams Rat Trapper Relationship Specialty Start Date End Date Polo Pearce PA [address] [place] [address] PCP - General Internal Medicine 06/09/21 documented as of this encounter
--- OUTSIDE RECORDS SUMMARY | 2023-10-02 22:38 | XMS_ITS | Encounter Summary ---
Author Organization [facility] [place] [address] Care Team Providers Care Grocery Sacker Name Role Phone Polo Pearce Primary Care Provider [phone] Reason for Referral * Diagnostic Test (Routine) - Pending Review Specialty Diagnoses / Procedures Referred By Contac t Referred To Contact Radiology Procedures Non [place] [address] Referral ID Status Reason Start Date Expiration Date Visits Requested Visits Authorized [id number] Pending Review Specialty Service Requested 09/20/2023 03/22/2025 1 1 * Diagnostic Test (Routine) - Pending Review Specialty Diagnoses / Procedures Referred By Contac t Referred To Contact Radiology Procedures Non [place] [address] Referral ID Status Reason Start Date Expiration Date Visits Requested Visits Authorized [id number] Pending Review Specialty Service Requested 09/20/2023 03/22/2025 1 1 * Diagnostic Test (Routine) - New Request Specialty Diagnoses / Procedures Referred By Contac t Referred To Contact Radiology Procedures Non [place] [address] Referral ID Status Reason Start Date Expiration Date Visits Requested Visits Authorized [id number] New Request Specialty Service Requested 09/20/2023 03/22/2025 1 1 Encounter Details Date Type Department Care Team (Nadege alan Contact Info) Description 09/20/2023 External Results Administration [facility] [place] [address] Social History Tobacco Use Types Packs/Day Years [...] any time in the past 12 m [facility], were you homeless or living [...] AM EDT Tech [place] [phone] [place] 10/08/2023 9:30 AM EDT Office [place] [address] MD [facility] [place] [address] 10/21/2023 10:30 AM EDT Appointment [place] [phone] Mary Reyes APRN [facility] [place] [address] 10/21/2023 11:30 AM EDT Appointment [place] [phone] Mary Reyes APRN [facility] [place] [address] 10/21/2023 12:30 PM EDT Appointment [place] [phone] Mary Reyes APRN [facility] [place] [address] 10/21/2023 1:30 PM EDT Appointment [place] [phone] Mary Reyes, [facility] [place] [address] 10/21/2023 2:30 PM EDT Appointment [place] [address] Mary Reyes, [facility] [place] [address] 10/26/2023 4:00 PM EDT Office Visit Cardiology at [address] [id number] Jaspreet Kinsey MD [facility] [place] [address] 10/28/2023 9:00 AM EDT Office [place] [address] 10/29/2023 10:00 AM EDT Clinical [place] [address] 10/29/2023 10:15 AM EDT Procedure [place] [address] 11/01/2023 5:00 PM EDT Office [place] [phone] Selene Browning, PhD [facility] [place] [address] 11/22/2023 4:40 PM EDT Office Visit Cardiology at [address] [address] Porsha Mcdaniels MD [facility] [place] [address] 12/13/2023 10:00 AM EDT Clinical [place] [phone] [facility] [place] [address] documented as of this encounter Procedures Procedure Name Priority Date/Time Associated Diagnosis Comments NON DH EXTERNAL RADIOLOGY EXAM Routine 09/20/2023 10:43 PM EDT NON DH EXTERNAL RADIOLOGY EXAM Routine 09/20/2023 10:42 PM EDT NON DH EXTERNAL RADIOLOGY EXAM Routine 09/20/2023 10:42 PM EDT ECG SCAN Routine 09/20/2023 4:51 PM EDT documented in this encounter Results * Non DH External Radiology Exam (09/20/2023 10:43 PM EDT) Anatomical Region Laterality Modality Magnetic Resonan ce Historical Provider IMG MRI ORDERABLE S * Non DH External Radiology Exam (09/20/2023 10:42 PM EDT) Anatomical Region Laterality Modality Magnetic Resonan ce Historical Provider IMG MRI ORDERABLE S * Non DH External Radiology Exam (09/20/2023 10:42 PM EDT) Anatomical Region Laterality Modality Magnetic Resonan ce Historical Provider IMKadi MRI ORDERABLE S * Scan Doc: ECG (09/20/2023 4:51 PM EDT) Historical Provider MEDIA MGR SCAN EX T ORDR/RSLT documented in this encounter Visit Diagnoses Not on filedocumented in this encounter Care Teams Grocery Sacker Relationship Specialty Start Date End Date Polo Pearce PA Sb [address] [place] [address] PCP - General Internal Medicine 06/09/21 documented as of this encounter
--- OUTSIDE RECORDS SUMMARY | 2023-10-02 22:38 | XMS_ITS | Encounter Summary ---
[place] [address] Care Team Providers Care Docking Pilot Name Role Phone Polo Pearce Primary Care Provider [phone] Reason for Referral * Consultation (Routine) - Authorized Specialty Diagnoses / Procedures Referred By Jayant harris Referred To Contact Cardiology Diagnoses NSTEMI (non-ST elevated myocardial infarction) [place] [address] Cardiac Rehab, [address] [place] [address] Referral ID Status Reason Start Date Expiration Date Visits Requested Visits Authorized [id number] Authorized Consult, Test & Treat Non PCP 09/10/2023 2024 36 36 Reason for Visit * Auth/Cert (Routine) Specialty Diagnoses / Procedures Referred By Jayant harris Referred To Contact Diagnoses NSTEMI (non-ST elevated myocardial infarction) NSTEMI Procedures EMERGENCY MICHELLEI [place] [address] [facility] Referral ID Status Reason Start Date Expiration Date Visits Re quested Visits Authorized [id number] 1 1 Encounter Details Date Type Department Care Team (Latest Contact Info) Description 08/28/2023 8:27 PM EDT - 09/10/2023 5:31 PM EDT Hospital Encounter Heart and Vascular Unit Level 3 Wing B at [place] [phone] Kia Angelo MD [facility] [place] [address] [place] [address] Eufemia Copeland MD [facility] [place] [address] [place] [address] Samantha Broussard MD [facility] [place] [address] [place] [address] Paresthesia of hand, bilateral; SVT (supraventricular tachycardia); [...] drink = 0.6 oz pur e alcohol) [facility] Utilities Answer Date Recorded In the past 12 months has [employer], gas, oil, or water [employer] threatened to shut off services in your [...] any time in the past 12 m [facility], were you homeless or living [...] Loida Madrigal Patient Age: 53 y.o. Language: Lebanese Race: White Ethnicity: Not nor Admit date: [...] through the [facility] Keyseating Machine Set Up Operator . Issues afterhours and on weekends will [...] 09/05/2023 4:25 PM) Result Value WORKSTATION ID [id number] Narrative EXAMINATION: CTA/CT ABDOMEN AND PELVIS W [...] who have questions please contact the health field care advocate that requested 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 Electronically signed by: Lalitha Sanders MD, [facility] ([phone]), at 09/06/2023 9:47 AM TTE 08/29/23 Interpretation [...] treatment for possible ACS, and transfer to [facility] for further management. Prior to transfer, patient [...] Administered Date(s) Administered Moderna Covid-19 Monovalent 12Yr+ (Alligator Shear Operator 100mcg) 03/06/2020, 04/03/2020 Discharge Medications: Your Medications [...] weight gain + increasing shortness of breath. [id number] minutes prior to a dose of torsemide). [...] of 8AM-5PM please call the Cardiology Clinic [phone] to speak with a nurse. All other hours please call the Hospital Keyseating Machine Set Up Operator [phone] and ask to speak to the cardiovascular hospitalist on-call. Follow up Appointments: Doctor Where Phone # Date Time PCP JOCY Franco [address] [place] [address] Please call to set up a follow up appointment. Cardiology Jaspreet Kinsey MD [facility] at [facility] Arrive at: [facility] [address] [phone] 10/26/2023 4:00 PM General Instructions None Future Appointments and Orders Future Appointments and Orders Future Appointments Provider Department Dept Phone 10/21/2023 10:30 AM [facility] Nuclear Medicine at [facility] Arrive at: [facility] [phone] Please do not eat or drink anything for at least 6 hours prior to your appointment. 10/21/2023 11:30 AM [facility] Nuclear Medicine at [facility] Arrive at: [facility] [phone] Please do not eat or drink anything for at least 6 hours prior to your appointment. 10/21/2023 12:30 PM [facility] Nuclear Medicine at [facility] Arrive at: [facility] [phone] Please do not eat or drink anything for at least 6 hours prior to your appointment. 10/21/2023 1:30 PM [facility] Nuclear Medicine at [facility] Arrive at: [facility] [phone] Please do not eat or drink anything for at least 6 hours prior to your appointment. 10/21/2023 2:30 PM [facility] Nuclear Medicine at [facility] Arrive at: [facility] [phone] Please do not eat or drink anything for at least 6 hours prior to your appointment. 10/26/2023 4:00 PM Jaspreet Kinsey MD [facility] at [facility] Arrive at: [facility] [address] [phone] 10/28/2023 9:00 AM [facility] 2 Gastroenterology at [facility] Arrive at: Director Of Premium Seat Sales Area 4T [phone] 10/29/2023 10:00 AM [facility] 2 Gastroenterology at [facility] Arrive at: Director Of Premium Seat Sales Area 4T [phone] 10/29/2023 10:15 AM [facility] 2 Gastroenterology at [facility] Arrive at: Director Of Premium Seat Sales Area 4T [phone] 11/22/2023 4:40 PM Porsha Mcdaniels MD Cardiology at [facility] Arrive at: Director Of Premium Seat Sales Area 4A [phone] 12/13/2023 10:[address] Gastroenterology at [facility] Arrive at: Director Of Premium Seat Sales Area Discharge References/Attachments None Greater than 30 minutes was spent on this discharge including documentation, [id number] time withthe patient, patient education, supervisor border department, coordination with pharmacy and other patient care. [...] of 8AM-5PM please call the Cardiology Clinic [phone] to speak with a nurse. All other hours please call the Hospital Keyseating Machine Set Up Operator [phone] and ask to speak to the cardiovascular hospitalist on-call. Follow up Appointments: Doctor Where Phone # Date Time PCP JOCY Franco Dr [address] [place] [address] Please call to set up a follow up appointment. Cardiology Jaspreet Kinsey MD [facility] at [facility] Arrive at: [facility] [address] [phone] 10/26/2023 4:00 PM documented in this encounter [...] as needed. fluticasone propionate (FLONASE) 50 mcg/actuation Acosta, Suspension 1 spray by Each Nare route [...] Center Cardiovascular Medicine CV HOSPITALIST 1 - [facility] DAILY PROGRESS NOTE Page [phone] to reach a provider 28/09 Admit Date: [...] hest pain, found to have transferred to [facility] for further management of NSTEMI. Patient found [...] ointment Diet: Daily Healthy Menu Choices/Cardiac diet ([facility]-Diet) DVT Prophylaxis: DOAC Code status: Attempt Cardiopulmonary Resuscitation - Inpatient Disposition: Discharge Location: AM-[facility] Basic Mobility Raw Score: 19 PT: OT: PCP JOCY Franco [phone] Lloyd Keating MD 09/09/2023 * Florencia Ortez [...] Center Cardiovascular Medicine CV HOSPITALIST 1 - [facility] DAILY PROGRESS NOTE Page [phone] to reach a provider 28/09 Admit Date: [...] hest pain, found to have transferred to [facility] for further management of NSTEMI. Patient found [...] ointment Diet: Daily Healthy Menu Choices/Cardiac diet ([facility]-Diet) DVT Prophylaxis: DOAC Code status: Attempt Cardiopulmonary Resuscitation - Inpatient Disposition: Discharge Location: AM-[facility] Basic Mobility Raw Score: 24 PT: OT: PCP JOCY Franco [phone] Lloyd Keating MD 09/08/2023 * Eidth [place] RCP - 09/08/2023 7:29 AM EDT [...] Center Cardiovascular Medicine CV HOSPITALIST 1 - [facility] DAILY PROGRESS NOTE Page [phone] to reach a provider 28/09 Admit Date: [...] hest pain, found to have transferred to [facility] for further management of NSTEMI. Patient found [...] ointment Diet: Daily Healthy Menu Choices/Cardiac diet ([facility]-Diet) DVT Prophylaxis: DOAC Code status: Attempt Cardiopulmonary Resuscitation - Inpatient Disposition: Discharge Location: [facility] Basic Mobility Raw Score: 24 PT: OT: PCP JOCY Franco [phone] Lloyd Keating MD 09/07/2023 * Dona Hanks [...] Center Cardiovascular Medicine CV HOSPITALIST 1 - [facility] DAILY PROGRESS NOTE Page [phone] to reach a provider 28/09 Admit Date: [...] hest pain, found to have transferred to [facility] for further management of NSTEMI. Patient found [...] ointment Diet: Daily Healthy Menu Choices/Cardiac diet ([facility]-Diet) DVT Prophylaxis: DOAC Code status: Attempt Cardiopulmonary Resuscitation - Inpatient Disposition: Discharge Location: AM-[facility] Basic Mobility Raw Score: 24 PT: OT: PCP JOCY Franco [phone] Lloyd Keating MD 09/06/2023 * Channing Montanez [...] at OSH with chest pain, transferred to [facility] for further management of NSTEMI. On arrival, [...] Miscellaneous Lab request Result Value Ref Range [facility] Result Request received in lab. Hemogram [...] chest pain, found to have transferred to [facility] for further management of NSTEMI. Patient found [...] ointment Diet: Daily Healthy Menu Choices/Cardiac diet ([facility]-Diet) DVT Prophlaxis: DOAC Code status: Attempt Cardiopulmonary [...] screened for hospital length of stay and check writer salesperson met patient at bedside. Patient states thattheir [...] Orders Diet Daily Healthy Menu Choices/Cardiac diet ([facility]-Diet) Frequency: Effective Now Number of Occurrences: [...] unless consulted in the interim. LORNA Berrios Titrator * Samantha Broussard MD - 09/04/2023 8:35 [...] at OSH with chest pain, transferred to [facility] for further management of NSTEMI. On arrival, [...] found to have elevated NSTEMI, transferred to [facility] for further management of NSTEMI. Patient found [...] ointment Diet: Daily Healthy Menu Choices/Cardiac diet ([facility]-Diet) DVT Prophlaxis: DOAC Code status: Attempt Cardiopulmonary [...] found to have elevated NSTEMI, transferred to [facility] for further management of NSTEMI. Patient found [...] ointment Diet: Daily Healthy Menu Choices/Cardiac diet ([facility]-Diet) DVT Prophlaxis: DOAC Code status: Attempt Cardiopulmonary [...] found to have elevated NSTEMI, transferred to [facility] for further management of NSTEMI. Patient found [...] neurontin Diet: Daily Healthy Menu Choices/Cardiac diet ([facility]-Diet) DVT Prophlaxis: DOAC Code status: Attempt Cardiopulmonary [...] found to have elevated NSTEMI, transferred to [facility] for further management of NSTEMI. Patient found [...] neurontin Diet: Daily Healthy Menu Choices/Cardiac diet ([facility]-Diet) DVT Prophlaxis: DOAC Code status: Attempt Cardiopulmonary [...] 7:25 AM EDT CV HOSPITALIST 1 - [facility] DAILY PROGRESS NOTE Page [phone] to reach a provider 28/09 Admit Date: [...] found to have elevated NSTEMI, transferred to [facility] for further management of NSTEMI. Patient found [...] duloxetine Diet: Daily Healthy Menu Choices/Cardiac diet ([facility]-Diet) DVT Prophlaxis: DOAC Code status: Attempt Cardiopulmonary Resuscitation - Inpatient Disposition: Discharge Planning: AM-PAC Basic Mobility Raw Score: 19 PT: OT: PCP JOCY Franco [phone] * Mary Castaneda RCP - 08/31/2023 5:18 [...] 9:11 PM EDT CV HOSPITALIST 1 - [facility] DAILY PROGRESS NOTE Page [phone] to reach a provider 28/09 Admit Date: [...] found to have elevated NSTEMI, transferred to [facility] for further management of NSTEMI Plan: #Acute [...] duloxetine Diet: Daily Healthy Menu Choices/Cardiac diet ([facility]-Diet) DVT Prophlaxis: DOAC Code status: Attempt Cardiopulmonary Resuscitation - Inpatient Disposition: Discharge Planning: AM-PAC Basic Mobility Raw Score: 19 PT: OT: PCP JOCY Franco [phone] * Neli Alcantar RN - 08/29/2023 3:25 [...] 7:07 AM EDT CV HOSPITALIST 1 - [facility] DAILY PROGRESS NOTE Page [phone] to reach a provider 28/09 Admit Date: [...] found to have elevated NSTEMI, transferred to [facility] for further management of NSTEMI Plan: #Acute [...] duloxetine Diet: Daily Healthy Menu Choices/Cardiac diet ([facility]-Diet) DVT Prophlaxis: heparin gtt Code status: Attempt Cardiopulmonary Resuscitation - Inpatient Disposition: Discharge Planning: AM-PAC Basic Mobility Raw Score: 19 PT: OT: PCP JOCY Franco [phone] documented in this encounter H&P Notes * [...] treatment for possible ACS, and transfer to [facility] for further management. Prior to transfer, patient [...] 3.56) performed by Lashonda Villa MD at [facility] ENDOSCOPY PRO UPPER GI ENDOSCOPY, BIOPSY N/A 07/07/2023 EGD WITH BIOPSY (WRVU 2.39) performed by Lashonda Villa MD at [facility] ENDOSCOPY VS ARTERIOGRAM MESENTERIC VASCULAR SURGERY 07/02/2023 [...] as needed. 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 Lives in [place] [facility] Social Determinants of Health Financial Resource [...] Administered Date(s) Administered Moderna Covid-19 Monovalent 12Yr+ (Alligator Shear Operator 100mcg) 03/06/2020, 04/03/2020 Physical Exam: Last Set [...] found to have elevated NSTEMI, transferred to [facility] for further management #NSTEMI, type I vs [...] respiratory supplies, other (see comments) (BiPAP through [facility]) DME Needed at Discharge: N/A Patient is insured through: Primary Insurance: [employer] [place] Payor: [employer] [place] / Plan[place] / [...] respiratory supplies, other (see comments) (BiPAP through [employer]) DME Needed at Discharge: No Patient is insured through: Primary Insurance: [employer] [place] Pay[place]: [employer] [place] / Plan: [place] / [...] Pt will be receiving Cardiac rehab at [facility] post discharge. D/c plan pending clinical course; anticipating d/c home with cardiac rehab when MR (potentially late today vs tomorrow). Care Management will continue to follow and assist with discharge planning and coordination of careas indicated. Anticipated Date of Discharge: 09/08/2023 * Consult Note - Anastasia Zaman RN - 09/06/2023 10:37 AM EDT Lioda Madrigal was seen today by Cardiac Rehabilitation for: NSTEMI, HFpEF Educational packet regarding CAD, cardiac risk factors, and managing angina given to the patient. Reviewed managing angina /use of sl nitroglycerin. Mediterranean diet guidelines briefly reviewed. Given parameters for home exercise. Participation in an outpatient cardiac rehabilitation program at [facility] was discussed. Patient agrees to a [...] as Appropriate) * Initial Assessments - Jorge Vleoz RN - 08/30/2023 12:39 PM EDT Office of Care Management Initial Assessment Jorge Veloz RN reviewed record and discussed patient with Care Team. Source of Information: Team, bedside nurse, medical record, and Patient Introduced self/reviewed role; services accepted. Admitted From: Transfer from another hospital Location: [facility] Reason for Hospitalization: overall not feeling well [...] has the electric, gas, oil, or water [employer] threatened to shut off services in your [...] respiratory supplies, other (see comments) (BiPAP through [facility]) [address] [facility] [address] Social & Family Supports: All names listed [...] Specific Information: N/A Health/Prescription Coverage: Primary Insurance: [place] Payor: Harimata [facility] [place] / Plan: [facility] [place] EXCHANGE / Product Type: *No Product type* / Secondary Insurance: N/A Prescription Coverage: Yes Preferred Pharmacy: [facility] [address] [place], [place] - [address] [facility] [address] [facility] [address] [facility] [place], [place] - [address] [facility] [address] [facility] [address] [facility] [address] Status: Patient is a : No Primary Care Provider confirmed: JOCY Franco [phone] Patient/Caregiver Goals of Treatment: home when MR [...] note were not included. [facility] [place] [address] INPATIENT CARDIOLOGY CONSULT NOTE Reason for Consult: Chest pain HPI: Loida Madrigal is a 53 y.o. obese female, history of non-obstructive CAD ([facility] 04/2023) with suspicion for microvascular dysfunction [...] AM EDT Tech Visit Vascular Lab at [place] [phone] Channing Escobedo [place] 10/08/2023 9:30 AM EDT Office Visit Vascular Surgery at [place] [phone] MD [facility] [place] [address] 10/21/2023 10:30 AM EDT Appointment Nuclear Medicine at [place] [phone] Mary Reyes [facility] [place] [address] 10/21/2023 11:30 AM EDT Appointment Nuclear Medicine at [place] [phone] [place] [address] 10/21/2023 12:30 PM EDT Appointment [place] [phone] Mary Reyes [facility] [place] [address] 10/21/2023 1:30 PM EDT Appointment [place] [phone] Mary Reyes [facility] [place] [address] 10/21/2023 2:30 PM EDT Appointment [place] [phone] Mary Reyes APRN [facility] [place] [address] 10/26/2023 4:00 PM EDT Office Visit Cardiology at [address] [phone] Jaspreet Kinsey MD [facility] [place] [address] 10/28/2023 9:00 AM EDT Office [place] [address] 10/29/2023 10:00 AM EDT Clinical [place] [address] 10/29/2023 10:15 AM EDT Procedure [place] [address] 11/01/2023 5:00 PM EDT Office Visit Gastroenterology at [place] [phone] Selene Browning, PhD [facility] [place] [address] 11/22/2023 4:40 PM EDT Office Visit Cardiology at [address] [phone] Porsha Mcdaniels MD [facility] [place] [address] 12/13/2023 10:00 AM EDT Clinical [place] [phone] [facility] [place] [address] Scheduled Orders Name Type Priority Associated Diagnoses [...] 09/05/2023 1:58 AM EDT DIFFERENTIAL, AUTOMATED Routine 09/05/19 1:58 AM EDT HC IGG 4 Routine [...] 2:39 AM EDT DIFFERENTIAL, AUTOMATED Routine 09/03/19 2:39 AM EDT HC CBC,PLT & AUTO [...] Abs (ANC) 4.17 1.70 - 6.10 x10(3)/[facility] LABORATORY Lymphocytes % 33.2 % [facility] Lymphocytes Abs 2.5 0.9 - 3.2 x10(3)/[facility] LABORATORY Monocytes % 8.4 % [facility] Monocyte Abs 0.6 0.3 - 0.9 x10(3)/[facility] LABORATORY Eosinophils % 3.0 % [facility] Eosinophils Abs 0.2 0.0 - 0.4 x10(3)/[facility] LABORATORY Basophils % 0.7 % [facility] Basophils Abs 0.0 0.0 - 0.1 x10(3)/[facility] LABORATORY Immature Gran % 0.30 % [facility] Comment: Immature granulocytes(IG's)percentage and absolute count will include metamyelocytes, myelocytes, and promyelocytes. Blood smears from CBCs yielding IG's will be scanned manually for concordance. If this scan disagrees with the automated IG or if promyelocytes are noted, a manual differential will be performed. Shonda Gran Abs 0.02 0.00 - 0.04 x10(3)/[facility] LABORATORY Blood 09/10/2023 4:17 AM EDT 09/10/2023 4:29 AM EDT Narrative Resulting Agency Comment Spec In Lab Eufemia Copeland MD HEMATOLOGY ORDERAB LES [facility] [place] [address] * (ABNORMAL) Hemogram (09/10/2023 4:17 AM EDT) WBC 7.6 4.0 - 9.5 x10(3)/[facility] LABORATORY RBC 4.15 4.00 - 5.21 x10(6)/[facility] LABORATORY Hemoglobin 13.0 11.7 - 15.5 g/dL [facility] Hematocrit 39.2 35.7 - 45.8 % [facility] MCV 94.5(H) 82.6 - 94.4 fL [facility] MCH 31.3 27.1 - 32.0 pg [facility] MCHC 33.2 31.7 - 35.0 g/dL [facility] Platelets 267 145 - 357 x10(3)/[facility] LABORATORY RDWSD 44.6 37.0 - 46.0 fL [facility] RDWCV 13.1 11.5 - 14.1 % [facility] MPV 10.3 7.6 - 12.9 fL [facility] nRBC % Auto 0.0 % [facility] nRBC Abs Auto 0.000 0.000 - 0.000 x10(3)/[facility] LABORATORY Blood 09/10/2023 4:17 AM EDT 09/10/2023 4:29 AM EDT Narrative Resulting Agency Comment Spec In Lab Eufemia Copeland MD HEMATOLOGY ORDERAB LES [facility] [place] [address] * (ABNORMAL) Basic Metabolic Panel (non-fasting) (09/10/2023 4:17 AM EDT) Glucose Lvl 92 65 - 199 mg/dL [facility] Comment:Diabetes: >=200 mg/d L plus symptoms BUN 27(H) 8 - 18 mg/dL [facility] Creatinine 1.39(H) 0.70 - 1.20 mg/dL [facility] Sodium 138 135 - 145 mmol/L [facility] Potassium 4.1 3.5 - 5.0 mmol/L [facility] Comment: Please note: ??Patients with WBC >100,000 may have falsely elevated Potassium levels. ??For accurate Potassium quantification in these patients send serum separator tube (gold top) for subsequent determinations. ??Contact the Clinical Chemistry Laboratory if there are any questions. Chloride 103 98 - 107 mmol/L [facility] CO2 24 22 - 31 mmol/L [facility] Anion Gap 11 5 - 15 mmol/L [facility] Calcium 9.4 8.5 - 10.5 mg/dL [facility] Estimated GFR 45(L) >=60 mL/min/1. 73 m?? [facility] Comment: This patient's estimated GFR [...] MD CHEMISTRY ORDERABL ES Performing Organization Address City/[facility]/ZIP Co de Phone Number [facility] [place] [address] * Magnesium (09/10/2023 4:17 AM EDT) Magnesium 0.99 0.69 - 1.07 mmol/L [facility] Blood 09/10/2023 4:17 AM EDT 09/10/2023 4:29 AM EDT Narrative Resulting Agency Comment Spec In Lab Eufemia Copeland MD CHEMISTRY ORDERABL ES Performing Organization Address City/[facility] Co de Phone Number [facility] [place] [address] * Differential, Automated (09/09/2023 5:10 AM EDT) Neutrophils % 54.1 % [facility] Neutr Abs (ANC) 4.00 1.70 - 6.10 x10(3)/[facility] LABOR[facility]ORY Lymphocytes % 31.7 % [facility] Lymphocytes Abs 2.3 0.9 - 3.2 x10(3)/[facility] LABORATORY Monocytes % 9.5 % [facility] Monocyte Abs 0.7 0.3 - 0.9 x10(3)/[facility] LABORATORY Eosinophils % 3.5 % [facility] Eosinophils Abs 0.3 0.0 - 0.4 x10(3)/[facility] LABORATORY Basophils % 0.8 % [facility] Basophils Abs 0.1 0.0 - 0.1 x10(3)/[facility] LABORATORY Immature Gran % 0.40 % [facility] Comment: Immature granulocytes(IG's)percentage and absolute count will include metamyelocytes, myelocytes, and promyelocytes. Blood smears from CBCs yielding IG's will be scanned manually for concordance. If this scan disagrees with the automated IG or if promyelocytes are noted, a manual differential will be performed. Shonda Gran Abs 0.03 0.00 - 0.04 x10(3)/[facility] LABORATORY Blood 09/09/2023 5:10 AM EDT 09/09/2023 5:19 AM EDT Narrative Resulting Agency Comment Spec In Lab Eufemia Copeland MD HEMATOLOGY ORDERAB LES [facility] [place] [address] * (ABNORMAL) Hemogram (09/09/2023 5:10 AM EDT) WBC 7.4 4.0 - 9.5 x10(3)/[facility] LABORATORY RBC 4.09 4.00 - 5.21 x10(6)/[facility] LABOR[facility]ORY Hemoglobin 13.0 11.7 - 15.5 g/dL [facility] Hematocrit 39.2 35.7 - 45.8 % [facility] MCV 95.8(H) 82.6 - 94.4 fL [facility] MCH 31.8 27.1 - 32.0 pg [facility] MCHC 33.2 31.7 - 35.0 g/dL [facility] Platelets 267 145 - 357 x10(3)/[facility] LABORATORY RDWSD 45.3 37.0 - 46.0 [facility] LABORATORY RDWCV 12.9 11.5 - 14.1 % [facility] MPV 9.9 7.6 - 12.9 fL [facility] nRBC % Auto 0.0 % [facility] nRBC Abs Auto 0.000 0.000 - 0.000 x10(3)/mcL [facility] Blood 09/09/2023 5:10 AM EDT 09/09/2023 5:19 AM EDT Narrative Resulting Agency Comment Spec In Lab Eufemia Copeland MD HEMATOLOGY ORDERAB LES [facility] [place] [address] * (ABNORMAL) Basic Metabolic Panel (non-fasting) (09/09/2023 5:10 AM EDT) Glucose Lvl 97 65 - 199 mg/dL [facility] Comment:Diabetes: >=200 mg/d L plus symptoms BUN 22(H) 8 - 18 mg/dL [facility] Creatinine 1.36(H) 0.70 - 1.20 mg/dL [facility] Sodium 137 135 - 145 mmol/L [facility] Potassium 3.6 3.5 - 5.0 mmol/L [facility] Comment: Please note: ??Patients with WBC >100,000 may have falsely elevated Potassium levels. ??For accurate Potassium quantification in these patients send serum separator tube (gold top) for subsequent determinations. ??Contact the Clinical Chemistry Laboratory if there are any questions. Chloride 100 98 - 107 mmol/L [facility] CO2 25 22 - 31 mmol/L [facility] Anion Gap 12 5 - 15 mmol/L [facility] Calcium 9.5 8.5 - 10.5 mg/dL [facility] Estimated GFR 46(L) >=60 mL/min/1. 73 m?? [facility] Comment: This patient's estimated GFR [...] MD CHEMISTRY ORDERABL ES Performing Organization Address [facility] Co de Phone Number [facility] [place] [address] * Magnesium (09/09/2023 5:10 AM EDT) Magnesium 0.97 0.69 - 1.07 mmol/L [facility] Blood 09/09/2023 5:10 AM EDT 09/09/2023 5:19 AM EDT Narrative Resulting Agency Comment Spec In Lab Eufemia Copeland MD CHEMISTRY ORDERABL ES Performing Organization Address [facility] Co de Phone Number [facility] [place] [address] * EKG 12 Lead (09/08/2023 4:01 AM EDT) Ventricular rate 59 BPM MUSE SYSTEM Atrial Rate 59 BPM MUSE SYSTEM P-R Interval 192 ms MUSE SYSTEM QRS Duration 92 ms MUSE SYSTEM Q-T Interval 452 ms MUSE SYSTEM QTC Calculated (Bezet) 447 ms MUSE SYSTEM Calculated P [place] 38 degrees MUSE SYSTEM Calculated R [place] 51 degrees MUSE SYSTEM Calculated T [place] -18 degrees MUSE SYSTEM INTERPRETATION Sinus bradycardia Diffuse ST depression, consider subendocardial injury Abnormal ECG When compared with ECG of 03-SEP-2023 06:02, Premature atrial complexes are no longer Present QT has shortened I personally reviewed the tracing and edited the fellows interpretation Confirmed by fellow Vito Pearce ([id number]) on 09/08/2023 7:40:32 AM Confirmed by MD Angelo Danette ([id number]) on 09/08/2023 2:12:57 PM MUSE SYSTEM 09/08/2023 4:01 AM EDT 09/08/2023 2:12 PM EDT Eufemia Copeland MD ECG ORDERABLES MUSE SYSTEM * Differential, Automated (09/08/2023 2:22 AM EDT) Neutrophils % 55.2 % [facility] Neutr Abs (ANC) 4.74 1.70 - 6.10 x10(3)/[facility] LABORATORY Lymphocytes % 30.8 % [facility] Lymphocytes Abs 2.6 0.9 - 3.2 x10(3)/[facility] LABORATORY Monocytes % 9.5 % [facility] Monocyte Abs 0.8 0.3 - 0.9 x10(3)/[facility] LABOR[facility]ORY Eosinophils % 3.6 % [facility] Eosinophils Abs 0.3 0.0 - 0.4 x10(3)/[facility] LAB[facility]ORY Basophils % 0.5 % [facility] Basophils Abs 0.0 0.0 - 0.1 x10(3)/[facility] LABORATORY Immature Gran % 0.40 % [facility] Comment: Immature granulocytes(IG's)percentage and absolute count will include metamyelocytes, myelocytes, and promyelocytes. Blood smears from CBCs yielding IG's will be scanned manually for concordance. If this scan disagrees with the automated IG or if promyelocytes are noted, a manual differential will be performed. Shonda Gran Abs 0.03 0.00 - 0.04 x10(3)/[facility] LAB[facility]ORY Blood 09/08/2023 2:22 AM EDT 09/08/2023 2:37 AM EDT Narrative Resulting Agency Comment Spec In Lab Eufemia Copeland MD HEMATOLOGY ORDERAB LES [facility] [place] [address] * (ABNORMAL) Hemogram (09/08/2023 2:22 AM EDT) [facility] WBC 8.6 4.0 - 9.5 x10(3)/[facility] LABORATORY RBC 3.98(L) 4.00 - 5.21 x10(6)/[facility] LABOR[facility]ORY Hemoglobin 12.8 11.7 - 15.5 g/dL [facility] Hematocrit 37.4 35.7 - 45.8 % [facility] MCV 94.0 82.6 - 94.4 fL [facility] MCH 32.2(H) 27.1 - 32.0 pg [facility] MCHC 34.2 31.7 - 35.0 g/dL [facility] Platelets 274 145 - 357 x10(3)/[facility] LABORATORY RDWSD 44.5 37.0 - 46.0 [facility] LABORATORY RDWCV 12.9 11.5 - 14.1 % [facility] MPV 10.4 7.6 - 12.9 [facility] LABORATORY nRBC % Auto 0.0 % [facility] nRBC Abs Auto 0.000 0.000 - 0.000 x10(3)/[facility] LABORATORY Blood 09/08/2023 2:22 AM EDT 09/08/2023 2:37 AM EDT Narrative Resulting Agency Comment Spec In Lab Eufemia Copeland MD HEMATOLOGY ORDERAB LES [facility] [place] [address] * (ABNORMAL) Basic Metabolic Panel (non-fasting) (09/08/2023 2:22 AM EDT) [facility] Glucose Lvl 98 65 - 199 mg/dL [facility] Comment:Diabetes: >=200 mg/d L plus symptoms BUN 19(H) 8 - 18 mg/dL [facility] Creatinine 1.41(H) 0.70 - 1.20 mg/dL [facility] Sodium 139 135 - 145 mmol/L [facility] Potassium 3.6 3.5 - 5.0 mmol/L [facility] Comment: Please note: ??Patients with WBC >100,000 may have falsely elevated Potassium levels. ??For accurate Potassium quantification in these patients send serum separator tube (gold top) for subsequent determinations. ??Contact the Clinical Chemistry Laboratory if there are any questions. Chloride 103 98 - 107 mmol/L [facility] CO2 24 22 - 31 mmol/L [facility] Anion Gap 12 5 - 15 mmol/L [facility] Calcium 9.1 8.5 - 10.5 mg/dL [facility] Estimated GFR 44(L) >=60 mL/min/1. 73 m?? [facility] Comment: This patient's estimated GFR [...] Lab Eufemia Copeland MD CHEMISTRY ORDERABL ES [facility] [place] [address] * Magnesium (09/08/2023 2:22 AM EDT) Magnesium 0.91 0.69 - 1.07 mmol/L [facility] Blood 09/08/2023 2:22 AM EDT 09/08/2023 2:37 AM EDT Narrative Resulting Agency Comment Spec In Lab Eufemia Copeland MD CHEMISTRY ORDERABL ES [facility] [place] [address] * Differential, Automated (09/07/2023 2:56 AM EDT) Neutrophils % 52.3 % [facility] Neutr Abs (ANC) 3.74 1.70 - 6.10 x10(3)/[facility] LABORATORY Lymphocytes % 33.8 % [facility] Lymphocytes Abs 2.4 0.9 - 3.2 x10(3)/[facility] LABORATORY Monocytes % 9.4 % [facility] Monocyte Abs 0.7 0.3 - 0.9 x10(3)/[facility] LABOR[facility]ORY Eosinophils % 3.6 % [facility] Eosinophils Abs 0.3 0.0 - 0.4 x10(3)/[facility] Basophils % 0.6 % [facility] Basophils Abs 0.0 0.0 - 0.1 x10(3)/[facility] LABORATORY Immature Gran % 0.30 % [facility] Comment: Immature granulocytes(IG's)percentage and absolute count will include metamyelocytes, myelocytes, and promyelocytes. Blood smears from CBCs yielding IG's will be scanned manually for concordance. If this scan disagrees with the automated IG or if promyelocytes are noted, a manual differential will be performed. Shonda Gran Abs 0.02 0.00 - 0.04 x10(3)/[facility] LABORATORY Blood 09/07/2023 2:56 AM EDT 09/07/2023 3:31 AM EDT Narrative Resulting Agency Comment Spec In Lab Eufemia Copeland MD HEMATOLOGY ORDERAB LES [facility] [place] [address] * (ABNORMAL) Hemogram (09/07/2023 2:56 AM EDT) [facility] WBC 7.2 4.0 - 9.5 x10(3)/[facility] LABORATORY RBC 4.16 4.00 - 5.21 x10(6)/[facility] LAB[facility]ORY Hemoglobin 13.1 11.7 - 15.5 g/dL [facility] Hematocrit 39.7 35.7 - 45.8 % [facility] MCV 95.4(H) 82.6 - 94.4 [facility] LABORATORY MCH 31.5 27.1 - 32.0 pg [facility] MCHC 33.0 31.7 - 35.0 g/dL [facility] Platelets 277 145 - 357 x10(3)/[facility] LABORATORY RDWSD 45.4 37.0 - 46.0 [facility] LABORATORY RDWCV 12.9 11.5 - 14.1 % [facility] MPV 10.6 7.6 - 12.9 [facility] LABORATORY nRBC % Auto 0.0 % [facility] nRBC Abs Auto 0.000 0.000 - 0.000 x10(3)/[facility] Blood 09/07/2023 2:56 AM EDT 09/07/2023 3:31 AM EDT Narrative Resulting Agency Comment Spec In Lab Eufemia Copeland MD HEMATOLOGY ORDERAB LES [facility] [place] [address] * (ABNORMAL) Basic Metabolic Panel (non-fasting) (09/07/2023 2:56 AM EDT) [facility] Glucose Lvl 97 65 - 199 mg/dL [facility] Comment:Diabetes: >=200 mg/d L plus symptoms BUN 16 8 - 18 mg/dL [facility] Creatinine 1.19 0.70 - 1.20 mg/dL [facility] Sodium 137 135 - 145 mmol/L [facility] Potassium 3.9 3.5 - 5.0 mmol/L [facility] Comment: Please note: ??Patients with WBC >100,000 may have falsely elevated Potassium levels. ??For accurate Potassium quantification in these patients send serum separator tube (gold top) for subsequent determinations. ??Contact the Clinical Chemistry Laboratory if there are any questions. Chloride 102 98 - 107 mmol/L [facility] CO2 25 22 - 31 mmol/L [facility] Anion Gap 10 5 - 15 mmol/L [facility] Calcium 9.4 8.5 - 10.5 mg/dL [facility] Estimated GFR 54(L) >=60 mL/min/1. 73 m?? [facility] Comment: This patient's estimated GFR [...] Lab Eufemia Copeland MD CHEMISTRY ORDERABL ES [facility] [place] [address] * Magnesium (09/07/2023 2:56 AM EDT) Magnesium 0.96 0.69 - 1.07 mmol/L [facility] Blood 09/07/2023 2:56 AM EDT 09/07/2023 3:31 AM EDT Narrative Resulting Agency Comment Spec In Lab Eufemia Copeland MD CHEMISTRY ORDERABL ES [facility] [place] [address] * Differential, Automated (09/06/2023 2:44 AM EDT) Pathologist [facility] Neutrophils % 53.7 % [facility] Neutr Abs (ANC) 4.01 1.70 - 6.10 x10(3)/[facility] LAB[facility]ORY Lymphocytes % 32.0 % [facility] Lymphocytes Abs 2.4 0.9 - 3.2 x10(3)/[facility] Monocytes % 10.0 % [facility] Monocyte Abs 0.8 0.3 - 0.9 x10(3)/[facility] Eosinophils % 3.2 % [facility] Eosinophils Abs 0.2 0.0 - 0.4 x10(3)/[facility] Basophils % 0.7 % [facility] Basophils Abs 0.0 0.0 - 0.1 x10(3)/[facility] LABOR[facility]ORY Immature Gran % 0.40 % [facility] Comment: Immature granulocytes(IG's)percentage and absolute count will include metamyelocytes, myelocytes, and promyelocytes. Blood smears from CBCs yielding IG's will be scanned manually for concordance. If this scan disagrees with the automated IG or if promyelocytes are noted, a manual differential will be performed. Shonda Gran Abs 0.03 0.00 - 0.04 x10(3)/[facility] LAB[facility] Blood 09/06/2023 2:44 AM EDT 09/06/2023 2:58 AM EDT Narrative Resulting Agency Comment Spec In Lab Eufemia Copeland MD HEMATOLOGY ORDERAB LES [facility] [place] [address] * Hemogram (09/06/2023 2:44 AM EDT) WBC 7.5 4.0 - 9.5 x10(3)/[facility] LAB[facility]ATORY RBC 4.26 4.00 - 5.21 x10(6)/[facility] Hemoglobin 13.6 11.7 - 15.5 g/dL [facility] Hematocrit 40.2 35.7 - 45.8 % [facility] MCV 94.4 82.6 - 94.4 [facility] LABORATORY MCH 31.9 27.1 - 32.0 pg [facility] MCHC 33.8 31.7 - 35.0 g/dL [facility] Platelets 274 145 - 357 x10(3)/[facility] LABOR[facility]ORY RDWSD 44.3 37.0 - 46.0 [facility] LAB[facility]ORY RDWCV 12.9 11.5 - 14.1 % [facility] MPV 10.2 7.6 - 12.9 [facility] LAB[facility] nRBC % Auto 0.0 % [facility] nRBC Abs Auto 0.000 0.000 - 0.000 x10(3)/[facility] Blood 09/06/2023 2:44 AM EDT 09/06/2023 2:58 AM EDT Narrative Resulting Agency Comment Spec In Lab Eufemia Copeland MD HEMATOLOGY ORDERAB LES [facility] [place] [address] * Basic Metabolic Panel (non-fasting) (09/06/2023 2:44 AM EDT) Glucose Lvl 100 65 - 199 mg/dL [facility] Comment:Diabetes: >=200 mg/d L plus symptoms BUN 16 8 - 18 mg/dL [facility] Creatinine 1.05 0.70 - 1.20 mg/dL [facility] Sodium 137 135 - 145 mmol/L [facility] Potassium 3.6 3.5 - 5.0 mmol/L [facility] Comment: Please note: ??Patients with WBC >100,000 may have falsely elevated Potassium levels. ??For accurate Potassium quantification in these patients send serum separator tube (gold top) for subsequent determinations. ??Contact the Clinical Chemistry Laboratory if there are any questions. Chloride 102 98 - 107 mmol/L [facility] CO2 25 22 - 31 mmol/L [facility] Anion Gap 10 5 - 15 mmol/L [facility] Calcium 9.5 8.5 - 10.5 mg/dL [facility] Estimated GFR 63 >=60 mL/min/1. 73 m?? [facility] Comment: This patient's estimated GFR [...] Lab Eufemia Copeland MD CHEMISTRY ORDERABL ES [facility] [place] [address] * Magnesium (09/06/2023 2:44 AM EDT) Magnesium 0.95 0.69 - 1.07 mmol/L [facility] Blood 09/06/2023 2:44 AM EDT 09/06/2023 2:58 AM EDT Narrative Resulting Agency Comment Spec In Lab Eufemia Copeland MD CHEMISTRY ORDERABL ES [facility] [place] [address] * CT Abdomen & Pelvis w Contrast (09/05/2023 4:25 PM EDT) [facility] N3TWORK WORKSTATION ID [id number] RAD Anatomical Region Laterality Modality Abdomen, Pelvis [...] who have questions please contact the health field care advocate that requested 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 ? Electronically signed by: Lalitha Sanders MD, Rad[facility] [place] ([phone]), at 09/06/2023 9:47 AM Narrative 09/06/2023 9:47 [...] patients who have questions please contactthe health field care advocate that requested 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 Electronically signed by: Lalitha Sanders MD, [facility] [place]([phone]), at 09/06/2023 9:47 AM Samantha Broussard MD IMG CT ORDERABLES * Differential, Automated (09/05/2023 1:58 AM EDT) Neutrophils % 54.5 % [facility] Neutr Abs (ANC) 4.32 1.70 - 6.10 x10(3)/[facility] Lymphocytes % 30.5 % [facility] Lymphocytes Abs 2.4 0.9 - 3.2 x10(3)/[facility] Monocytes % 11.4 % [facility] Monocyte Abs 0.9 0.3 - 0.9 x10(3)/[facility] Eosinophils % 2.8 % [facility] Eosinophils Abs 0.2 0.0 - 0.4 x10(3)/[facility] Basophils % 0.5 % [facility] Basophils Abs 0.0 0.0 - 0.1 x10(3)/[facility] Immature Gran % 0.30 % [facility] Comment: Immature granulocytes(IG's)percentage and absolute count will include metamyelocytes, myelocytes, and promyelocytes. Blood smears from CBCs yielding IG's will be scanned manually for concordance. If this scan disagrees with the automated IG or if promyelocytes are noted, a manual differential will be performed. Shonda Gran Abs 0.02 0.00 - 0.04 x10(3)/[facility] Blood 09/05/2023 1:58 AM EDT 09/05/2023 2:13 AM EDT Narrative Resulting Agency Comment Spec In Lab Eufemia Copeland MD HEMATOLOGY ORDERAB LES [facility] [place] [address] * Hemogram (09/05/2023 1:58 AM EDT) WBC 7.9 4.0 - 9.5 x10(3)/[facility] RBC 4.38 4.00 - 5.21 x10(6)/[facility] Hemoglobin 13.7 11.7 - 15.5 g/dL [facility] Hematocrit 40.5 35.7 - 45.8 % [facility] MCV 92.5 82.6 - 94.4 fL [facility] MCH 31.3 27.1 - 32.0 pg [facility] MCHC 33.8 31.7 - 35.0 g/dL [facility] Platelets 282 145 - 357 x10(3)/[facility] RDWSD 44.0 37.0 - 46.0 fL [facility] RDWCV 13.0 11.5 - 14.1 % [facility] MPV 10.4 7.6 - 12.9 fL [facility] nRBC % Auto 0.0 % [facility] nRBC Abs Auto 0.000 0.000 - 0.000 x10(3)/[facility] Blood 09/05/2023 1:58 AM EDT 09/05/2023 2:13 AM EDT Narrative Resulting Agency Comment Spec In Lab Eufemia Copeland MD HEMATOLOGY ORDERAB LES [facility] [place] [address] * (ABNORMAL) Basic Metabolic Panel (non-fasting) (09/05/2023 1:58 AM EDT) Glucose Lvl 103 65 - 199 mg/dL [facility] Comment:Diabetes: >=200 mg/d L plus symptoms BUN 24(H) 8 - 18 mg/dL [facility] Creatinine 1.10 0.70 - 1.20 mg/dL [facility] Sodium 136 135 - 145 mmol/L [facility] Potassium 3.6 3.5 - 5.0 mmol/L [facility] Comment: Please note: ??Patients with WBC >100,000 may have falsely elevated Potassium levels. ??For accurate Potassium quantification in these patients send serum separator tube (gold top) for subsequent determinations. ??Contact the Clinical Chemistry Laboratory if there are any questions. Chloride 99 98 - 107 mmol/L [facility] CO2 25 22 - 31 mmol/L [facility] Anion Gap 12 5 - 15 mmol/L [facility] Calcium 9.5 8.5 - 10.5 mg/dL [facility] Estimated GFR 60 >=60 mL/min/1. 73 m?? [facility] Comment: This patient's estimated GFR [...] MD CHEMISTRY ORDERABL ES Performing Organization Address [facility] Co de Phone Number [facility] [place] [address] * Magnesium (09/05/2023 1:58 AM EDT) Magnesium 1.02 0.69 - 1.07 mmol/L [facility] Blood 09/05/2023 1:58 AM EDT 09/05/2023 2:13 AM EDT Narrative Resulting Agency Comment Spec In Lab Eufemia Copeland MD CHEMISTRY ORDERABL ES Performing Organization Address City/[facility]/ZIP Co de Phone Number [facility] [place] [address] * Miscellaneous Lab request (09/05/2023 1:58 AM EDT) Misc Lab Result Request received in lab. [facility] Blood 09/05/2023 1:58 AM EDT 09/05/2023 2:14 AM EDT Narrative Resulting Agency Comment Spec In Lab Samantha Broussard MD HEMATOLOGY ORDERABLE S Performing Organization Address City/[facility]/ZIP Co de Phone Number [facility] [place] [address] * IgG 4 (09/05/2023 1:58 AM EDT) [facility] IgG 4 47.7 3.9 - 86.4 mg/dL [facility] Blood 09/05/2023 1:58 AM EDT 09/05/2023 2:13 AM EDT Narrative Resulting Agency Comment Spec In Lab Samantha Broussard MD IMMUNOLOGY ORDERABLE S Performing Organization Address City/[facility]/ZIP Co de Phone Number [facility] [place] [address] * (ABNORMAL) Basic Metabolic Panel (non-fasting) (09/04/2023 2:11 PM EDT) [facility] Glucose Lvl 104 65 - 199 mg/dL [facility] Comment:Diabetes: >=200 mg/d L plus symptoms BUN 24(H) 8 - 18 mg/dL [facility] Creatinine 1.34(H) 0.70 - 1.20 mg/dL [facility] Sodium 136 135 - 145 mmol/L [facility] Potassium 3.7 3.5 - 5.0 mmol/L [facility] Comment: Please note: ??Patients with WBC >100,000 may have falsely elevated Potassium levels. ??For accurate Potassium quantification in these patients send serum separator tube (gold top) for subsequent determinations. ??Contact the Clinical Chemistry Laboratory if there are any questions. Chloride 96(L) 98 - 107 mmol/L [facility] CO2 25 22 - 31 mmol/L [facility] Anion Gap 15 5 - 15 mmol/L [facility] Calcium 9.6 8.5 - 10.5 mg/dL [facility] Estimated GFR 47(L) >=60 mL/min/1. 73 m?? [facility] Comment: This patient's estimated GFR [...] Mcmanus MD CHEMISTRY ORDERABLES Performing Organization Address City/[facility] Co de Phone Number [facility] [place] [address] * (ABNORMAL) Potassium (09/04/2023 9:13 AM EDT) [facility] Potassium 3.2(L) 3.5 - 5.0 mmol/L [facility] [...] In Lab Samantha Broussard MD CHEMISTRY ORDERABLES [facility] [place] [address] * (ABNORMAL) Potassium (09/04/2023 4:25 AM EDT) Potassium 2.9(Criti edy) 3.5 - 5.0 mmol/L [facility] Comment: Called by: staci, Read [...] In Lab Lorna Herr MD CHEMISTRY ORDERABLES [facility] [place] [address] * Differential, Automated (09/04/2023 3:03 AM EDT) Pathologist [facility] Neutrophils % 59.0 % [facility] Neutr Abs (ANC) 4.85 1.70 - 6.10 x10(3)/[facility] LABORATORY Lymphocytes % 26.3 % [facility] Lymphocytes Abs 2.2 0.9 - 3.2 x10(3)/[facility] LABORATORY Monocytes % 10.4 % [facility] Monocyte Abs 0.8 0.3 - 0.9 x10(3)/[facility] LABORATORY Eosinophils % 3.4 % [facility] Eosinophils Abs 0.3 0.0 - 0.4 x10(3)/[facility] LABORATORY Basophils % 0.5 % [facility] Basophils Abs 0.0 0.0 - 0.1 x10(3)/[facility] LABORATORY Immature Gran % 0.40 % [facility] Comment: Immature granulocytes(IG's)percentage and absolute count will include metamyelocytes, myelocytes, and promyelocytes. Blood smears from CBCs yielding IG's will be scanned manually for concordance. If this scan disagrees with the automated IG or if promyelocytes are noted, a manual differential will be performed. Shonda Gran Abs 0.03 0.00 - 0.04 x10(3)/[facility] LABORATORY Blood 09/04/2023 3:03 AM EDT 09/04/2023 3:21 AM EDT Narrative Resulting Agency Comment Spec In Lab Eufemia Copeland MD HEMATOLOGY ORDERAB LES [facility] [place] [address] * (ABNORMAL) Hemogram (09/04/2023 3:03 AM EDT) WBC 8.2 4.0 - 9.5 x10(3)/[facility] LABORATORY RBC 4.55 4.00 - 5.21 x10(6)/[facility] LABORATORY Hemoglobin 14.8 11.7 - 15.5 g/dL [facility] Hematocrit 41.8 35.7 - 45.8 % [facility] MCV 91.9 82.6 - 94.4 [facility]ORATORY MCH 32.5(H) 27.1 - 32.0 pg [facility] MCHC 35.4(H) 31.7 - 35.0 g/dL [facility] Platelets 306 145 - 357 x10(3)/[facility] LABORATORY RDWSD 42.8 37.0 - 46.0 [facility] LABORATORY RDWCV 12.8 11.5 - 14.1 % [facility] MPV 10.2 7.6 - 12.9 [facility] LABORATORY nRBC % Auto 0.0 % [facility] nRBC Abs Auto 0.000 0.000 - 0.000 x10(3)/[facility] LABORATORY Blood 09/04/2023 3:03 AM EDT 09/04/2023 3:21 AM EDT Narrative Resulting Agency Comment Spec In Lab Eufemia Copeland MD HEMATOLOGY ORDERAB LES [facility] [place] [address] * (ABNORMAL) Basic Metabolic Panel (non-fasting) (09/04/2023 3:03 AM EDT) Glucose Lvl 117 65 - 199 mg/dL [facility] Comment:Diabetes: >=200 mg/d L plus symptoms BUN 28(H) 8 - 18 mg/dL [facility] Creatinine 1.32(H) 0.70 - 1.20 mg/dL [facility] Sodium 134(L) 135 - 145 mmol/L [facility] Potassium Not Perf 3.5 - 5.0 [facility] Comment: Unable to quantitate due [...] questions. Chloride 92(L) 98 - 107 mmol/L [facility] CO2 26 22 - 31 mmol/L [facility] Anion Gap 16(H) 5 - 15 mmol/L [facility] Calcium 10.0 8.5 - 10.5 mg/dL [facility] Estimated GFR 48(L) >=60 mL/min/1. 73 m?? [facility] Comment: This patient's estimated GFR [...] MD CHEMISTRY ORDERABL ES Performing Organization Address [facility] Co de Phone Number [facility] [place] [address] * Magnesium (09/04/2023 3:03 AM EDT) Pathologist [facility] Magnesium 1.07 0.69 - 1.07 mmol/L [facility] Blood 09/04/2023 3:03 AM EDT 09/04/2023 3:21 AM EDT Narrative Resulting Agency Comment Spec In Lab Eufemia Copeland MD CHEMISTRY ORDERABL ES Performing Organization Address [facility] Co de Phone Number [facility] [place] [address] * EKG 12 Lead (09/03/2023 6:02 AM EDT) Ventricular rate 65 BPM MUSE SYSTEM Atrial Rate 65 BPM MUSE SYSTEM P-R Interval 196 ms MUSE SYSTEM QRS Duration 94 ms MUSE SYSTEM Q-T Interval 580 ms MUSE SYSTEM QTC Calculated (Bezet) 603 ms MUSE SYSTEM Calculated P [place] 39 degrees MUSE SYSTEM Calculated R [place] 28 degrees MUSE SYSTEM Calculated T [place] 35 degrees MUSE SYSTEM INTERPRETATION Sinus rhythm with Premature atrial complexes Possible Left atrial enlargement Nonspecific ST and T wave abnormality Abnormal ECG When compared with ECG of 03-SEP-2023 03:05, Nonspecific T wave abnormality no longer evident in Inferior leads Nonspecific T wave abnormality, improved in Anterolateral leads QT has lengthened Confirmed by fellow MD Santo Kajal ([id number]) on 09/06/2023 12:52:08 AM Confirmed by MD Lucia Jose ([id number]) on 09/06/2023 9:05:05 PM MUSE SYSTEM 09/03/2023 6:02 AM EDT 09/06/2023 9:05 PM EDT Archie Mcmanus MD ECG ORDERABLES Performing Organization Address [facility] Phone Number MUSE SYSTEM * EKG 12 Lead (09/03/2023 3:05 AM EDT) Ventricular rate 62 BPM MUSE SYSTEM Atrial Rate 62 BPM MUSE SYSTEM P-R Interval 174 ms MUSE SYSTEM QRS Duration 90 ms MUSE SYSTEM Q-T Interval 486 ms MUSE SYSTEM QTC Calculated (Bezet) 493 ms MUSE SYSTEM Calculated P [place] 20 degrees MUSE SYSTEM Calculated R [place] 20 degrees MUSE SYSTEM Calculated T [place] -7 degrees MUSE SYSTEM INTERPRETATION Sinus rhythm with Premature atrial complexes Nonspecific ST and T wave abnormality Abnormal ECG When compared with ECG of 02-SEP-2023 14:42, Premature atrial complexes are now Present QT has lengthened Confirmed by fellow MD Santo Kajal ([id number]) on 09/06/2023 12:50:25 AM Confirmed by MD Lucia Jose ([id number]) on 09/06/2023 9:04:55 PM MUSE SYSTEM 09/03/2023 3:05 AM EDT 09/06/2023 9:04 PM EDT Archie Mcmanus MD ECG ORDERABLES Performing Organization Address [facility] Phone Number MUSE SYSTEM * Differential, Automated (09/03/2023 2:39 AM EDT) Neutrophils % 61.1 % [facility] Neutr Abs (ANC) 5.22 1.70 - 6.10 x10(3)/[facility] LABORATORY Lymphocytes % 24.2 % [facility] Lymphocytes Abs 2.1 0.9 - 3.2 x10(3)/[facility] LABORATORY Monocytes % 10.3 % [facility] Monocyte Abs 0.9 0.3 - 0.9 x10(3)/[facility] LABORATORY Eosinophils % 3.6 % [facility] Eosinophils Abs 0.3 0.0 - 0.4 x10(3)/[facility] LAB[facility]ATORY Basophils % 0.6 % [facility] Basophils Abs 0.0 0.0 - 0.1 x10(3)/[facility] LABORATORY Immature Gran % 0.20 % [facility] Comment: Immature granulocytes(IG's)percentage and absolute count will include metamyelocytes, myelocytes, and promyelocytes. Blood smears from CBCs yielding IG's will be scanned manually for concordance. If this scan disagrees with the automated IG or if promyelocytes are noted, a manual differential will be performed. Shonda Gran Abs 0.02 0.00 - 0.04 x10(3)/[facility] LABORATORY Blood 09/03/2023 2:39 AM EDT 09/03/2023 2:46 AM EDT Narrative Resulting Agency Comment Spec In Lab Eufemia Copeland MD HEMATOLOGY ORDERAB LES [facility] [place] [address] * Hemogram (09/03/2023 2:39 AM EDT) WBC 8.6 4.0 - 9.5 x10(3)/[facility] LABORATORY RBC 4.83 4.00 - 5.21 x10(6)/[facility] LABORATORY Hemoglobin 15.2 11.7 - 15.5 g/dL [facility] Hematocrit 45.4 35.7 - 45.8 % [facility] MCV 94.0 82.6 - 94.4 fL [facility] [place]CH 31.5 27.1 - 32.0 pg [facility] MCHC 33.5 31.7 - 35.0 g/dL [facility] Platelets 295 145 - 357 x10(3)/[facility] RDWSD 44.1 37.0 - 46.0 fL [facility] RDWCV 12.8 11.5 - 14.1 % [facility] MPV 10.3 7.6 - 12.9 fL [facility] nRBC % Auto 0.0 % [facility] nRBC Abs Auto 0.000 0.000 - 0.000 x10(3)/mcL [facility] Blood 09/03/2023 2:39 AM EDT 09/03/2023 2:46 AM EDT Narrative Resulting Agency Comment Spec In Lab Eufemia Copeland MD HEMATOLOGY ORDERAB LES [facility] [place] [address] * (ABNORMAL) Basic Metabolic Panel (non-fasting) (09/03/2023 2:39 AM EDT) Glucose Lvl 108 65 - 199 mg/dL [facility] Comment:Diabetes: >=200 mg/d L plus symptoms BUN 23(H) 8 - 18 mg/dL [facility] Creatinine 1.53(H) 0.70 - 1.20 mg/dL [facility] Sodium 138 135 - 145 mmol/L [facility] Potassium 3.4(L) 3.5 - 5.0 mmol/L [facility] Comment: Please note: ??Patients with WBC >100,000 may have falsely elevated Potassium levels. ??For accurate Potassium quantification in these patients send serum separator tube (gold top) for subsequent determinations. ??Contact the Clinical Chemistry Laboratory if there are any questions. Chloride 93(L) 98 - 107 mmol/L [facility] CO2 30 22 - 31 mmol/L [facility] Anion Gap 15 5 - 15 mmol/L [facility] Calcium 10.4 8.5 - 10.5 mg/dL [facility] Estimated GFR 40(L) >=60 mL/min/1. 73 m?? [facility] Comment: This patient's estimated GFR [...] MD CHEMISTRY ORDERABL ES Performing Organization Address [facility] Co de Phone Number [facility] [place] [address] * Magnesium (09/03/2023 2:39 AM EDT) Magnesium 0.98 0.69 - 1.07 mmol/L [facility] Blood 09/03/2023 2:39 AM EDT 09/03/2023 2:46 AM EDT Narrative Resulting Agency Comment Spec In Lab Eufemia Copeland MD CHEMISTRY ORDERABL ES Performing Organization Address [facility] Co de Phone Number [facility] [place] [address] * (ABNORMAL) Protein Electrophoresis, serum (09/03/2023 2:39 AM EDT) Total Prot Elec 7.9 6.1 - 8.0 g/dL [facility] Albumin Elect 4.87 3.20 - 5.20 g/dL [facility] Alpha1-Globul in 0.21 0.10 - 0.30 g/dL [facility] Alpha2-Globul in 1.03(H) 0.40 - 0.90 g/dL [facility] Beta Globulin 0.90 0.50 - 1.00 g/dL [facility] Gamma Globulin 0.88 0.50 - 1.30 g/dL [facility] M1 Band None Detected None Detected [facility] Blood 09/03/2023 2:39 AM EDT 09/03/2023 2:46 AM EDT Narrative Resulting Agency Comment Spec In Lab Lorna Herr MD CHEMISTRY ORDERABLES Performing Organization Address City/[facility]/ZIP Co de Phone Number [facility] [place] [address] * Protein Electrophoresis, urine, random (09/02/2023 9:30 PM EDT) U Protein Ran <6 0 - 12 mg/dL [facility] U Albumin See Note [facility] Comment:No protein visible v ia electrophoresis due to a low urine total protein. U Globulin Not Perf [facility] Comment:No protein visible v ia electrophoresis due to a low urine total protein. U M Band Not Perf [facility] Comment:No protein visible v ia electrophoresis due to a low urine total protein. U PEP Comments See Note [facility] Comment: Total Protein concentration too low to fractionate using current electrophoretic technique. No protein visible via electrophoresis due to a low urine total protein. Urine 09/02/2023 9:30 PM EDT 09/02/2023 9:35 PM EDT Narrative Resulting Agency Comment Spec In Lab Lorna Herr MD URINE ORDERABLES Performing Organization Address City/[facility]/ZIP Co de Phone Number [facility] [place] [address] * (ABNORMAL) Troponin (09/02/2023 8:16 PM EDT) Troponin-T HS 24(H) <=14 ng/L [...] can be found in the [facility] Test Catalog Troponin - [facility] Test Catalog Reference: Fourth Lyman Definition of Myocardial Infarction. Journal of the [place] [employer] 2018;72:1006-8684 Blood 09/02/2023 8:16 PM EDT 09/02/2023 8:25 PM EDT Narrative Resulting Agency Comment Spec In Lab Lorna Herr MD CHEMISTRY ORDERABLES Performing Organization Address City/[facility]/ZIP Co de Phone Number [facility] [place] [address] * (ABNORMAL) pro-Brain Natriuretic Peptide (09/02/2023 5:05 PM EDT) ProBNP 985(H) <=124 pg/mL [facility] Blood 09/02/2023 5:05 PM EDT 09/02/2023 5:17 PM EDT Narrative Resulting Agency Comment Spec In Lab Lorna Herr MD CHEMISTRY ORDERABLES Performing Organization Address City/[facility]/ZIP Co de Phone Number [facility] [place] [address] * (ABNORMAL) Troponin (09/02/2023 5:05 PM EDT) [...] can be found in the [facility] Test Catalog Troponin - [facility] Test Catalog Reference: Fourth Lyman Definition of Myocardial Infarction. Journal of the [place] [employer] 2018;72:3136-1639 Blood 09/02/2023 5:05 PM EDT 09/02/2023 5:17 PM EDT Narrative Resulting Agency Comment Spec In Lab Lorna Herr MD CHEMISTRY ORDERABLES [facility] [place] [address] * EKG 12 Lead (09/02/2023 2:42 PM EDT) Pathologist [facility] Ventricular rate 60 BPM MUSE SYSTEM Atrial Rate 60 BPM MUSE SYSTEM P-R Interval 178 ms MUSE SYSTEM QRS Duration 88 ms MUSE SYSTEM Q-T Interval 434 ms MUSE SYSTEM QTC Calculated (Bezet) 434 ms MUSE SYSTEM Calculated P [place] 42 degrees MUSE SYSTEM Calculated R [place] 44 degrees MUSE SYSTEM INTERPRETATION Normal sinus [...] can be found in the [facility] Test Catalog Troponin - [facility] Test Catalog Reference: Fourth Lyman Definition of Myocardial Infarction. Journal of the [place] [employer] 2018;72:2511-4155 Blood 09/02/2023 9:05 AM EDT 09/02/2023 9:28 AM EDT Narrative Resulting Agency Comment Spec In Lab Archie Mcmanus [place] [address] * Differential, Automated (09/02/2023 3:18 AM EDT) Neutrophils % 58.4 % [facility] Neutr Abs (ANC) 4.40 1.70 - 6.10 x10(3)/[facility] LAB[facility]ATORY Lymphocytes % 28.2 % [facility] Lymphocytes Abs 2.1 0.9 - 3.2 x10(3)/[facility] LAB[facility]ORY Monocytes % 8.3 % [facility] Monocyte Abs 0.6 0.3 - 0.9 x10(3)/[facility] LAB[facility]ORY Eosinophils % 4.2 % [facility] Eosinophils Abs 0.3 0.0 - 0.4 x10(3)/[facility] Basophils % 0.5 % [facility] Basophils Abs 0.0 0.0 - 0.1 x10(3)/[facility] LABOR[facility]ORY Immature Gran % 0.40 % [facility] Comment: Immature granulocytes(IG's)percentage and absolute count will include metamyelocytes, myelocytes, and promyelocytes. Blood smears from CBCs yielding IG's will be scanned manually for concordance. If this scan disagrees with the automated IG or if promyelocytes are noted, a manual differential will be performed. Shonda Gran Abs 0.03 0.00 - 0.04 x10(3)/[facility] Blood 09/02/2023 3:18 AM EDT 09/02/2023 3:55 AM EDT Narrative Resulting Agency Comment Spec In Lab Eufemia Copeland MD [place] [address] * (ABNORMAL) Hemogram (09/02/2023 3:18 AM EDT) Pathologist [facility] WBC 7.6 4.0 - 9.5 x10(3)/[facility] LAB[facility]ATORY RBC 4.33 4.00 - 5.21 x10(6)/[facility] Hemoglobin 13.6 11.7 - 15.5 g/dL [facility] Hematocrit 41.0 35.7 - 45.8 % [facility] MCV 94.7(H) 82.6 - 94.4 fL [facility] MCH 31.4 27.1 - 32.0 pg [facility] MCHC 33.2 31.7 - 35.0 g/dL [facility] Platelets 275 145 - 357 x10(3)/[facility] LABORATORY RDWSD 45.7 37.0 - 46.0 [facility] LABORATORY RDWCV 13.2 11.5 - 14.1 % [facility] MPV 10.7 7.6 - 12.9 [facility] LABORATORY nRBC % Auto 0.0 % [facility] nRBC Abs Auto 0.000 0.000 - 0.000 x10(3)/[facility] Blood 09/02/2023 3:18 AM EDT 09/02/2023 3:55 AM EDT Narrative Resulting Agency Comment Spec In Lab Eufemia Copeland MD HEMATOLOGY ORDERAB LES [facility] [place] [address] * (ABNORMAL) Troponin (09/02/2023 3:18 AM EDT) Pathologist [facility] Troponin-T HS 23(H) <=14 ng/L [facility] [...] can be found in the [facility] Test Catalog Troponin - [facility] Test Catalog Reference: Fourth Lyman Definition of Myocardial Infarction. Journal of the [place] [employer] 2018;72:5654-4022 Blood 09/02/2023 3:18 AM EDT 09/02/2023 3:55 AM EDT Narrative Resulting Agency Comment Spec In Lab Archie Mcmanus MD CHEMISTRY ORDERABLES [facility] [place] [address] * (ABNORMAL) Basic Metabolic Panel (non-fasting) (09/02/2023 3:18 AM EDT) Glucose Lvl 121 65 - 199 mg/dL [facility] Comment:Diabetes: >=200 mg/d L plus symptoms BUN 17 8 - 18 mg/dL [facility] Creatinine 1.20 0.70 - 1.20 mg/dL [facility] Sodium 140 135 - 145 mmol/L [facility] Potassium 3.7 3.5 - 5.0 mmol/L [facility] Comment: Please note: ??Patients with WBC >100,000 may have falsely elevated Potassium levels. ??For accurate Potassium quantification in these patients send serum separator tube (gold top) for subsequent determinations. ??Contact the Clinical Chemistry Laboratory if there are any questions. Chloride 101 98 - 107 mmol/L [facility] CO2 25 22 - 31 mmol/L [facility] Anion Gap 14 5 - 15 mmol/L [facility] Calcium 9.5 8.5 - 10.5 mg/dL [facility] Estimated GFR 54(L) >=60 mL/min/1. 73 m?? [facility] Comment: This patient's estimated GFR [...] MD CHEMISTRY ORDERABL ES Performing Organization Address [facility] Co de Phone Number [facility] [place] [address] * Magnesium (09/02/2023 3:18 AM EDT) Magnesium 0.91 0.69 - 1.07 mmol/L [facility] Blood 09/02/2023 3:18 AM EDT 09/02/2023 3:55 AM EDT Narrative Resulting Agency Comment Spec In Lab Eufemia Copeland MD CHEMISTRY ORDERABL ES Performing Organization Address [facility]/ZIP Co de Phone Number [facility] [place] [address] * Differential, Automated (09/01/2023 3:08 AM EDT) Neutrophils % 57.1 % [facility] Neutr Abs (ANC) 4.00 1.70 - 6.10 x10(3)/[facility] LAB[facility]ORY Lymphocytes % 26.9 % [facility] Lymphocytes Abs 1.9 0.9 - 3.2 x10(3)/[facility] Monocytes % 11.4 % [facility] Monocyte Abs 0.8 0.3 - 0.9 x10(3)/[facility] Eosinophils % 4.1 % [facility] Eosinophils Abs 0.3 0.0 - 0.4 x10(3)/[facility] Basophils % 0.4 % [facility] Basophils Abs 0.0 0.0 - 0.1 x10(3)/[facility] Immature Gran % 0.10 % [facility] Comment: Immature granulocytes(IG's)percentage and absolute count will include metamyelocytes, myelocytes, and promyelocytes. Blood smears from CBCs yielding IG's will be scanned manually for concordance. If this scan disagrees with the automated IG or if promyelocytes are noted, a manual differential will be performed. Shonda Gran Abs 0.01 0.00 - 0.04 x10(3)/[facility] Blood 09/01/2023 3:08 AM EDT 09/01/2023 3:18 AM EDT Narrative Resulting Agency Comment Spec In Lab Eufemia Copeland MD HEMATOLOGY ORDERAB LES [facility] [place] [address] * (ABNORMAL) Hemogram (09/01/2023 3:08 AM EDT) WBC 7.0 4.0 - 9.5 x10(3)/[facility] RBC 4.18 4.00 - 5.21 x10(6)/[facility] Hemoglobin 13.6 11.7 - 15.5 g/dL [facility] Hematocrit 39.8 35.7 - 45.8 % [facility] MCV 95.2(H) 82.6 - 94.4 [facility] LABORATORY MCH 32.5(H) 27.1 - 32.0 pg [facility] MCHC 34.2 31.7 - 35.0 g/dL [facility] Platelets 232 145 - 357 x10(3)/[facility] RDWSD 45.0 37.0 - 46.0 [facility]ORY RDWCV 13.1 11.5 - 14.1 % [facility] MPV 10.2 7.6 - 12.9 [facility] LABORATORY nRBC % Auto 0.0 % [facility] nRBC Abs Auto 0.000 0.000 - 0.000 x10(3)/[facility] Blood 09/01/2023 3:08 AM EDT 09/01/2023 3:18 AM EDT Narrative Resulting Agency Comment Spec In Lab Eufemia Copeland MD HEMATOLOGY ORDERAB LES [facility] [place] [address] * (ABNORMAL) Basic Metabolic Panel (non-fasting) (09/01/2023 3:08 AM EDT) Glucose Lvl 110 65 - 199 mg/dL [facility] Comment:Diabetes: >=200 mg/d L plus symptoms BUN 20(H) 8 - 18 mg/dL [facility] Creatinine 1.22(H) 0.70 - 1.20 mg/dL [facility] Sodium 138 135 - 145 mmol/L [facility] Potassium 4.0 3.5 - 5.0 mmol/L [facility] Comment: Please note: ??Patients with WBC >100,000 may have falsely elevated Potassium levels. ??For accurate Potassium quantification in these patients send serum separator tube (gold top) for subsequent determinations. ??Contact the Clinical Chemistry Laboratory if there are any questions. Chloride 101 98 - 107 mmol/L [facility] CO2 23 22 - 31 mmol/L [facility] Anion Gap 14 5 - 15 mmol/L [facility] Calcium 9.7 8.5 - 10.5 mg/dL [facility] Estimated GFR 53(L) >=60 mL/min/1. 73 m?? [facility] Comment: This patient's estimated GFR [...] MD CHEMISTRY ORDERABL ES Performing Organization Address [facility]/ZIP Co de Phone Number [facility] [place] [address] * Magnesium (09/01/2023 3:08 AM EDT) Magnesium 0.98 0.69 - 1.07 mmol/L [facility] Blood 09/01/2023 3:08 AM EDT 09/01/2023 3:18 AM EDT Narrative Resulting Agency Comment Spec In Lab Eufemia Copeland MD CHEMISTRY ORDERABL ES Performing Organization Address [facility]/ZIP Co de Phone Number [facility] [place] [address] * Magnesium (08/31/2023 5:03 PM EDT) Magnesium 0.95 0.69 - 1.07 mmol/L [facility] Blood 08/31/2023 5:03 PM EDT 08/31/2023 5:08 PM EDT Narrative Resulting Agency Comment Spec In Lab Eufemia Copeland MD CHEMISTRY ORDERABL ES Performing Organization Address [facility] Co de Phone Number [facility] [place] [address] * Phosphorus (08/31/2023 5:03 PM EDT) Phosphorus 3.8 2.5 - 4.5 mg/dL [facility] Blood 08/31/2023 5:03 PM EDT 08/31/2023 5:08 PM EDT Narrative Resulting Agency Comment Spec In Lab Eufemia Copeland MD CHEMISTRY ORDERABL ES Performing Organization Address [facility] Co de Phone Number [facility] [place] [address] * (ABNORMAL) Basic Metabolic Panel (non-fasting) (08/31/2023 5:03 PM EDT) Glucose Lvl 111 65 - 199 mg/dL [facility] Comment:Diabetes: >=200 mg/d L plus symptoms BUN 17 8 - 18 mg/dL [facility] Creatinine 1.14 0.70 - 1.20 mg/dL [facility] [...] questions. Chloride 101 98 - 107 mmol/L [facility] CO2 23 22 - 31 mmol/L [facility] Anion Gap 14 5 - 15 mmol/L [facility] Calcium 9.6 8.5 - 10.5 mg/dL [facility] Estimated GFR 57(L) >=60 mL/min/1. 73 m?? [facility] Comment: This patient's estimated GFR [...] Lab Eufemia Copeland MD CHEMISTRY ORDERABL ES [facility] [place] [address] * Differential, Automated (08/31/2023 2:18 AM EDT) Neutrophils % 58.1 % [facility] Neutr Abs (ANC) 4.52 1.70 - 6.10 x10(3)/[facility] Lymphocytes % 25.8 % [facility] Lymphocytes Abs 2.0 0.9 - 3.2 x10(3)/[facility] Monocytes % 11.0 % [facility] Monocyte Abs 0.9 0.3 - 0.9 x10(3)/[facility] Eosinophils % 4.0 % [facility] Eosinophils Abs 0.3 0.0 - 0.4 x10(3)/[facility] Basophils % 0.6 % [facility] Basophils Abs 0.0 0.0 - 0.1 x10(3)/[facility] LABOR[facility]ORY Immature Gran % 0.50 % [facility] Comment: Immature granulocytes(IG's)percentage and absolute count will include metamyelocytes, myelocytes, and promyelocytes. Blood smears from CBCs yielding IG's will be scanned manually for concordance. If this scan disagrees with the automated IG or if promyelocytes are noted, a manual differential will be performed. Shonda Gran Abs 0.04 0.00 - 0.04 x10(3)/[facility]ORY Blood 08/31/2023 2:18 AM EDT 08/31/2023 2:23 AM EDT Narrative Resulting Agency Comment Spec In Lab Archie Mcmanus MD HEMATOLOGY ORDERABLE S Performing Organization Address City/State/[facility] Co de Phone Number [facility] [place] [address] * (ABNORMAL) Hemogram (08/31/2023 2:18 AM EDT) WBC 7.8 4.0 - 9.5 x10(3)/[facility] LAB[facility]ORY RBC 3.97(L) 4.00 - 5.21 x10(6)/[facility] Hemoglobin 12.6 11.7 - 15.5 g/dL [facility] Hematocrit 38.5 35.7 - 45.8 % [facility] MCV 97.0(H) 82.6 - 94.4 fL [facility] MCH 31.7 27.1 - 32.0 pg [facility] MCHC 32.7 31.7 - 35.0 g/dL [facility] Platelets 218 145 - 357 x10(3)/[facility]OR[facility]ORY RDWSD 47.5(H) 37.0 - 46.0 fL [facility] RDWCV 13.2 11.5 - 14.1 % [facility] MPV 10.6 7.6 - 12.9 fL [facility] nRBC % Auto 0.0 % [facility] nRBC Abs Auto 0.000 0.000 - 0.000 x10(3)/mcL [facility] Blood 08/31/2023 2:18 AM EDT 08/31/2023 2:23 AM EDT Narrative Resulting Agency Comment Spec In Lab Archie Mcmanus MD HEMATOLOGY ORDERABLE S Performing Organization Address City/[facility]/ZIP Co de Phone Number [facility] [place] [address] * Magnesium (08/31/2023 2:18 AM EDT) Magnesium 0.96 0.69 - 1.07 mmol/L [facility] Blood 08/31/2023 2:18 AM EDT 08/31/2023 2:23 AM EDT Narrative Resulting Agency Comment Spec In Lab Eufemia Copeland MD CHEMISTRY ORDERABL ES Performing Organization Address [facility] Co de Phone Number [facility] [place] [address] * (ABNORMAL) Basic Metabolic Panel (non-fasting) (08/31/2023 2:18 AM EDT) Glucose Lvl 114 65 - 199 mg/dL [facility] Comment:Diabetes: >=200 mg/d L plus symptoms BUN 18 8 - 18 mg/dL [facility] Creatinine 1.37(H) 0.70 - 1.20 mg/dL [facility] Sodium 137 135 - 145 mmol/L [facility] Comment:result rechecked-bz Potassium 3.8 3.5 - 5.0 mmol/L [facility] Comment: result rechecked-bz Please note: ??Patients with WBC >100,000 may have falsely elevated Potassium levels. ??For accurate Potassium quantification in these patients send serum separator tube (gold top) for subsequent determinations. ??Contact the Clinical Chemistry Laboratory if there are any questions. Chloride 100 98 - 107 mmol/L [facility] Comment:result rechecked-bz CO2 25 22 - 31 mmol/L [facility] Anion Gap 12 5 - 15 mmol/L [facility] Calcium 9.6 8.5 - 10.5 mg/dL [facility] Comment:result rechecked-bz Estimated GFR 46(L) >=60 mL/min/1. 73 m?? [facility] Comment: This patient's estimated GFR [...] In Lab Archie Mcmanus MD CHEMISTRY ORDERABLES [facility] [place] [address] * Differential, Automated (08/30/2023 3:09 AM EDT) Neutrophils % 67.5 % [facility] Neutr Abs (ANC) 5.26 1.70 - 6.10 x10(3)/[facility] Lymphocytes % 19.1 % [facility] Lymphocytes Abs 1.5 0.9 - 3.2 x10(3)/[facility] LAB[facility]ORY Monocytes % 9.4 % [facility] Monocyte Abs 0.7 0.3 - 0.9 x10(3)/[facility] Eosinophils % 3.2 % [facility] Eosinophils Abs 0.2 0.0 - 0.4 x10(3)/[facility] LAB[facility]ORY Basophils % 0.4 % [facility] Basophils Abs 0.0 0.0 - 0.1 x10(3)/[facility] Immature Gran % 0.40 % [facility] Comment: Immature granulocytes(IG's)percentage and absolute count will include metamyelocytes, myelocytes, and promyelocytes. Blood smears from CBCs yielding IG's will be scanned manually for concordance. If this scan disagrees with the automated IG or if promyelocytes are noted, a manual differential will be performed. Shonda Gran Abs 0.03 0.00 - 0.04 x10(3)/[facility] Blood 08/30/2023 3:09 AM EDT 08/30/2023 3:21 AM EDT Narrative Resulting Agency Comment Spec In Lab Archie Mcmanus MD HEMATOLOGY ORDERABLE S [facility] [place] [address] * (ABNORMAL) Hemogram (08/30/2023 3:09 AM EDT) WBC 7.8 4.0 - 9.5 x10(3)/[facility] LAB[facility] RBC 3.34(L) 4.00 - 5.21 x10(6)/[facility] Hemoglobin 10.5(L) 11.7 - 15.5 g/dL [facility] Hematocrit 31.8(L) 35.7 - 45.8 % [facility] MCV 95.2(H) 82.6 - 94.4 fL [facility] MCH 31.4 27.1 - 32.0 pg [facility] MCHC 33.0 31.7 - 35.0 g/dL [facility] Platelets 176 145 - 357 x10(3)/[facility] LABORATORY RDWSD 46.5(H) 37.0 - 46.0 fL [facility] RDWCV 13.2 11.5 - 14.1 % [facility] MPV 10.9 7.6 - 12.9 fL [facility] nRBC % Auto 0.0 % [facility] nRBC Abs Auto 0.000 0.000 - 0.000 x10(3)/[facility] Blood 08/30/2023 3:09 AM EDT 08/30/2023 3:21 AM EDT Narrative Resulting Agency Comment Spec In Lab Archie Mcmanus MD HEMATOLOGY ORDERABLE S [facility] [place] [address] * Heparin (unfractionated) Level (08/30/2023 3:09 AM EDT) Heparin UFH Level 0.46 IU/mL [facility] Comment: Heparin (anti-Xa) levels should [...] Lab Archie Mcmanus MD HEMATOLOGY ORDERABLE S [facility] [place] [address] * Magnesium (08/30/2023 3:09 AM EDT) [facility] Magnesium 0.74 0.69 - 1.07 mmol/L [facility] Blood 08/30/2023 3:09 AM EDT 08/30/2023 3:20 AM EDT Narrative Resulting Agency Comment Spec In Lab Eufemia Copeland MD CHEMISTRY ORDERABL ES Performing Organization Address [facility]/ZIP Co de Phone Number [facility] [place] [address] * (ABNORMAL) Basic Metabolic Panel (non-fasting) (08/30/2023 3:09 AM EDT) [facility] Glucose Lvl 99 65 - 199 mg/dL [facility] Comment:Diabetes: >=200 mg/d L plus symptoms BUN 16 8 - 18 mg/dL [facility] Creatinine 1.03 0.70 - 1.20 mg/dL [facility] Sodium 145 135 - 145 mmol/L [facility] Potassium 3.7 3.5 - 5.0 mmol/L [facility] Comment: Please note: ??Patients with WBC >100,000 may have falsely elevated Potassium levels. ??For accurate Potassium quantification in these patients send serum separator tube (gold top) for subsequent determinations. ??Contact the Clinical Chemistry Laboratory if there are any questions. Chloride 114(H) 98 - 107 mmol/L [facility] CO2 19(L) 22 - 31 mmol/L [facility] Anion Gap 12 5 - 15 mmol/L [facility] Calcium 7.1(L) 8.5 - 10.5 mg/dL [facility] Comment:result rechecked-mg Estimated GFR 65 >=60 mL/min/1. 73 m?? [facility] Comment: This patient's estimated GFR [...] Mcmanus MD CHEMISTRY ORDERABLES Performing Organization Address [facility] Co de Phone Number [facility] [place] [address] * Heparin (unfractionated) Level (08/29/2023 5:49 PM EDT) Heparin UFH Level 0.52 IU/mL [facility] Comment: Heparin (anti-Xa) levels should [...] MD HEMATOLOGY ORDERABLE S Performing Organization Address City/[facility]/ZIP Co de Phone Number [facility] [place] [address] * EKG 12 Lead (08/29/2023 3:05 PM EDT) Ventricular rate 56 BPM MUSE SYSTEM Atrial Rate 56 BPM MUSE SYSTEM P-R Interval 172 ms MUSE SYSTEM QRS Duration 86 ms MUSE SYSTEM Q-T Interval 560 ms MUSE SYSTEM QTC Calculated (Bezet) 540 ms MUSE SYSTEM Calculated P [place] 10 degrees MUSE SYSTEM Calculated R [place] 27 degrees MUSE SYSTEM Calculated T [place] 8 degrees MUSE SYSTEM INTERPRETATION Sinus bradycardia [...] AM EDT) Heparin UFH Level 0.55 IU/mL [facility] Comment: Heparin (anti-Xa) levels should [...] Archie Mcmanus MD HEMATOLOGY ORDERABLE S [facility] [place] [address] * ECHO LMTD W CONTRAST W LMTD SPEC DOPP COLOR DOPP (08/29/2023 11:35 AM EDT) EF 50 HEARTLAB SYSTEM Anatomical Region Laterality Modality Cardiac Other 08/29/2023 9:47 AM EDT Narrative 08/29/2023 12:27 PM EDT [address] [place] [id number] ? Echocardiogram Report Name: LOIDA MADRIGAL ? Study Date: 08/29/2023 09:47 AMBP: 100/55 mmHg ? Patient Location: [id number] A : 1970 ? Height: 163 cm ? Account: [id number] Age: 53 yrs ? Weight: 102 kg Gender: Female ?BSA: 2.1 m2 Ordering Physician: ARCHIE MCMANUS Referring Physician: SKIP HUMPHREY Performed By: Nalini Alvares [facility] Exam Location: [facility]. Interpretation Summary Left ventricle is normal in size. There is low normal global systolic function, with focal hypokinesis in the anteroseptum as ascribed. Right ventricle is not well visualized. No hemodynamically significant valve disease. Compared to prior studies over the past 6 months, there has been stable global LV systolic function, with oscillating regional function of the anterior wall. Procedure Limited - 50014. Image enhancement Optison was used for left [...] Note Jaspreet Kinsey MD - 08/29/2023 [address] [place] [address] Echocardiogram Report Name: LOIDA MADRIGAL Study Date: 409:47 AMBP: 100/55 mmHg Patient Location: [address] : 1970 Height: 163 cm Account: [id number] Age: 53 yrs Weight: 102 kg Gender: Female BSA: 2.1 m2 Ordering Physician: ARCHIE MCMANUS Referring Physician: SKIP HUMPHREY Performed By: Nalini Alvares RDCS Exam Location: [facility]. Interpretation Summary Left ventricle is normal in size. There is low normal global systolicfunction, with focal hypokinesis in the anteroseptum as ascribed. Right ventricle is not well visualized. No hemodynamically significant valve disease. Compared to prior studies over the past 6 months, there has been stableglobal LV systolic function, with oscillating regional function of the anteriorwall. Procedure Limited - [id number]. Image enhancement Optison was used for left [...] (Bezet) 546 ms MUSE SYSTEM Calculated P [place] 21 degrees MUSE SYSTEM Calculated R [place] 21 degrees MUSE SYSTEM Calculated T [place] 0 degrees MUSE SYSTEM INTERPRETATION Sinus bradycardia Possible Lateral infarct (cited on or before 29-JUL-2023) Prolonged QT Abnormal ECG When compared with ECG of 29-JUL-2023 08:47, Premature atrial complexes are no longer Present Criteria for Septal infarct are no longer Present Nonspecific T wave abnormality, improved in Inferior leads QT has lengthened Confirmed by MD Amelie, Jaspreet ([id number]) on 08/29/2023 3:51:39 PM MUSE SYSTEM 08/29/2023 6:04 AM EDT 08/29/2023 3:51 PM EDT Archie Mcmanus MD ECG ORDERABLES MUSE SYSTEM * CRP, acute inflammation (08/29/2023 4:01 AM EDT) Pathologist [facility] CRP <3.0 <=4.9 mg/L [facility] Blood Venous Draw / Unknown 08/29/2023 4:01 AM EDT 08/29/2023 4:13 AM EDT Narrative Resulting Agency Comment Spec In Lab Eufemia Copeland MD CHEMISTRY ORDERABL ES [facility] [place] [address] * Sedimentation rate (08/29/2023 4:01 AM EDT) Pathologist [facility] Sed Rate 11 2 - 39 mm/hr [facility] Comment: Effective February 15, 2019 [...] MD HEMATOLOGY ORDERAB LES Performing Organization Address City/[facility]/ZIP Co de Phone Number [facility] [place] [address] * Green Tube HOLD (08/29/2023 4:01 AM EDT) Green Hold Sample in lab. [facility] Blood Venous Draw / Unknown 08/29/2023 4:01 AM EDT 08/29/2023 4:09 AM EDT Archie Mcmanus MD CHEMISTRY ORDERABLES Performing Organization Address City/[facility] Co de Phone Number [facility] [place] [address] * Differential, Automated (08/29/2023 4:01 AM EDT) Neutrophils % 65.6 % [facility] Neutr Abs (ANC) 5.23 1.70 - 6.10 x10(3)/[facility] Lymphocytes % 21.4 % [facility] Lymphocytes Abs 1.7 0.9 - 3.2 x10(3)/[facility] Monocytes % 8.5 % [facility] Monocyte Abs 0.7 0.3 - 0.9 x10(3)/[facility] Eosinophils % 4.0 % [facility] Eosinophils Abs 0.3 0.0 - 0.4 x10(3)/[facility] Basophils % 0.4 % [facility] Basophils Abs 0.0 0.0 - 0.1 x10(3)/[facility] Immature Gran % 0.10 % [facility] Comment: Immature granulocytes(IG's)percentage and absolute count will include metamyelocytes, myelocytes, and promyelocytes. Blood smears from CBCs yielding IG's will be scanned manually for concordance. If this scan disagrees with the automated IG or if promyelocytes are noted, a manual differential will be performed. Shonda Gran Abs 0.01 0.00 - 0.04 x10(3)/[facility] Blood 08/29/2023 4:01 AM EDT 08/29/2023 4:08 AM EDT Narrative Resulting Agency Comment Spec In Lab Archie Mcmanus MD HEMATOLOGY ORDERABLE S [facility] [place] [address] * (ABNORMAL) Hemogram (08/29/2023 4:01 AM EDT) WBC 8.0 4.0 - 9.5 x10(3)/[facility] RBC 3.91(L) 4.00 - 5.21 x10(6)/[facility] Hemoglobin 12.6 11.7 - 15.5 g/dL [facility] Hematocrit 37.6 35.7 - 45.8 % [facility] MCV 96.2(H) 82.6 - 94.4 fL [facility] MCH 32.2(H) 27.1 - 32.0 pg [facility] MCHC 33.5 31.7 - 35.0 g/dL [facility] Platelets 197 145 - 357 x10(3)/[facility] RDWSD 46.7(H) 37.0 - 46.0 fL [facility] RDWCV 13.3 11.5 - 14.1 % [facility] MPV 10.4 7.6 - 12.9 fL [facility] nRBC % Auto 0.0 % [facility] nRBC Abs Auto 0.000 0.000 - 0.000 x10(3)/mcL [facility] Blood 08/29/2023 4:01 AM EDT 08/29/2023 4:08 AM EDT Narrative Resulting Agency Comment Spec In Lab Archie Mcmanus MD HEMATOLOGY ORDERABLE S Performing Organization Address [facility]/ZIP Co de Phone Number [facility] [place] [address] * (ABNORMAL) Heparin (unfractionated) Level (08/29/2023 4:01 AM EDT) Heparin UFH Level 1.04(Crit ical) IU/mL [facility] Comment: Critical Result called by ?? JONI CRITICAL Results read back by: ? jayson [...] MD HEMATOLOGY ORDERABLE S Performing Organization Address City/[facility]/ZIP Co de Phone Number [facility] [place] [address] * (ABNORMAL) Basic Metabolic Panel (non-fasting) (08/29/2023 4:01 AM EDT) Glucose Lvl 106 65 - 199 mg/dL [facility] Comment:Diabetes: >=200 mg/d L plus symptoms BUN 24(H) 8 - 18 mg/dL [facility] Creatinine 1.18 0.70 - 1.20 mg/dL [facility] Sodium 141 135 - 145 mmol/L [facility] Potassium 3.5 3.5 - 5.0 mmol/L [facility] Comment: Please note: ??Patients with WBC >100,000 may have falsely elevated Potassium levels. ??For accurate Potassium quantification in these patients send serum separator tube (gold top) for subsequent determinations. ??Contact the Clinical Chemistry Laboratory if there are any questions. Chloride 107 98 - 107 mmol/L [facility] CO2 22 22 - 31 mmol/L [facility] Anion Gap 12 5 - 15 mmol/L [facility] Calcium 8.8 8.5 - 10.5 mg/dL [facility] Estimated GFR 55(L) >=60 mL/min/1. 73 m?? [facility] Comment: This patient's estimated GFR [...] In Lab Archie Mcmanus MD CHEMISTRY ORDERABLES [facility] [place] [address] * (ABNORMAL) Troponin (08/29/2023 12:31 AM EDT) [...] can be found in the [facility] Test Catalog Troponin - [facility] Test Catalog Reference: Fourth Lyman Definition of Myocardial Infarction. Journal of the [place] [employer] 2018;72:2804-1288 Blood 08/29/2023 12:3 1 AM EDT 08/29/2023 12:35 AM EDT Narrative Resulting Agency Comment Spec In Lab Archie Mcmanus MD CHEMISTRY ORDERABLES [facility] [place] [address] * Differential, Automated (08/28/2023 9:07 PM EDT) Neutrophils % 59.8 % [facility] Neutr Abs (ANC) 4.06 1.70 - 6.10 x10(3)/mcL [facility] Lymphocytes % 28.8 % [facility] Lymphocytes Abs 2.0 0.9 - 3.2 x10(3)/[facility] Monocytes % 5.7 % [facility] Monocyte Abs 0.4 0.3 - 0.9 x10(3)/[facility] Eosinophils % 4.6 % [facility] Eosinophils Abs 0.3 0.0 - 0.4 x10(3)/[facility] Basophils % 0.7 % [facility] Basophils Abs 0.0 0.0 - 0.1 x10(3)/[facility] Immature Gran % 0.40 % [facility] Comment: Immature granulocytes(IG's)percentage and absolute count will include metamyelocytes, myelocytes, and promyelocytes. Blood smears from CBCs yielding IG's will be scanned manually for concordance. If this scan disagrees with the automated IG or if promyelocytes are noted, a manual differential will be performed. Shonda Gran Abs 0.03 0.00 - 0.04 x10(3)/[facility] Blood 08/28/2023 9:07 PM EDT 08/28/2023 9:12 PM EDT Narrative Resulting Agency Comment Spec In Lab Archie Mcmanus MD HEMATOLOGY ORDERABLE S Performing Organization Address City/State/[facility] Co de Phone Number [facility] [place] [address] * (ABNORMAL) Hemogram (08/28/2023 9:07 PM EDT) WBC 6.8 4.0 - 9.5 x10(3)/[facility] RBC 4.39 4.00 - 5.21 x10(6)/[facility] Hemoglobin 14.1 11.7 - 15.5 g/dL [facility] Hematocrit 42.2 35.7 - 45.8 % [facility] MCV 96.1(H) 82.6 - 94.4 fL [facility] MCH 32.1(H) 27.1 - 32.0 pg [facility] MCHC 33.4 31.7 - 35.0 g/dL [facility] Platelets 234 145 - 357 x10(3)/[facility] RDWSD 47.3(H) 37.0 - 46.0 [facility] RDWCV 13.3 11.5 - 14.1 % [facility] MPV 10.3 7.6 - 12.9 [facility] nRBC % Auto 0.0 % [facility] nRBC Abs Auto 0.000 0.000 - 0.000 x10(3)/[facility] Blood 08/28/2023 9:07 PM EDT 08/28/2023 9:12 PM EDT Narrative Resulting Agency Comment Spec In Lab Archie Mcmanus MD HEMATOLOGY ORDERABLE S [facility] [place] [address] * (ABNORMAL) Heparin (unfractionated) Level (08/28/2023 9:07 PM EDT) Heparin UFH Level 1.90(Crit ical) IU/mL [facility] Comment: Critical Result called [...] Lab Archie Mcmanus MD HEMATOLOGY ORDERABLE S [facility] [place] [address] * Lipid Panel (Reflex Direct LDL) (08/28/2023 9:07 PM EDT) Chol, Total 203 mg/dL [facility] Comment: Desirable: ? <200 mg/dL Borderline High: 200-239 mg/dL Higher: ?>yv=725 mg/dL Triglycerides 146 mg/dL [facility] Comment: Normal: ?<150 mg/dL Borderline High: 150-199 mg/dL High: ?200-499 mg/dL Very High: ? >pa=817 mg/dL HDL 52 mg/dL [facility] Comment: Females: High Risk: <50 mg/dL Males: High Risk: <40 mg/dL LDL Cholesterol 122 mg/dL [facility] Comment: Desirable: ? <100 mg/dL Above Desirable: 100-129 mg/dL Borderline High: 130-159 mg/dL High: ?160-189 mg/dL Very High: ? >wf=560 mg/dL Lipid Interpretation See Note [facility] Comment: It is important to [...] ACC/AHA Guidelines (most recently Ysabel et al. [facility] 12/09/21): For individuals with atherosclerotic cardiovascular disease (ASCVD)or LDL >sp=394 mg/dL, use a high-intensity statin (40-80 mg [...] In Lab Archie Mcmanus MD CHEMISTRY ORDERABLES [facility] [place] [address] * (ABNORMAL) pro-Brain Natriuretic Peptide (08/28/2023 9:07 PM EDT) [facility] Signature ProBNP 2,854(H) <=124 pg/mL [facility] Blood 08/28/2023 9:07 PM EDT 08/28/2023 9:12 PM EDT Narrative Resulting Agency Comment Spec In Lab Archie Mcmanus MD CHEMISTRY ORDERABLES Performing Organization Address City/[facility]/ZIP Co de Phone Number [facility] [place] [address] * (ABNORMAL) Troponin (08/28/2023 9:07 PM EDT) [...] can be found in the [facility] Test Catalog Troponin - [facility] Test Catalog Reference: Fourth Lyman Definition of Myocardial Infarction. Journal of the [place] [employer] 2018;72:1528-3065 Blood 08/28/2023 9:07 PM EDT 08/28/2023 9:12 PM EDT Narrative Resulting Agency Comment Spec In Lab Archie Mcmanus MD CHEMISTRY ORDERABLES Performing Organization Address City/[facility]/ZIP Co de Phone Number [facility] [place] [address] * (ABNORMAL) Hepatic Function Panel (08/28/2023 9:07 PM EDT) Total Protein 6.6 6.1 - 8.0 g/dL [facility] [facility] Albumin 4.2 3.2 - 5.2 g/dL [facility] AST 32(H) 0 - 30 unit/L [facility] ALT 28 0 - 30 unit/L [facility] Alk Phos 52 35 - 105 unit/L [facility] Total Bilirubin 0.6 0.2 - 1.3 mg/dL [facility] Bili, Direct 0.2 0.0 - 0.3 mg/dL [facility] Blood 08/28/2023 9:07 PM EDT 08/28/2023 9:12 PM EDT Narrative Resulting Agency Comment Spec In Lab Archie Mcmanus MD CHEMISTRY ORDERABLES [facility] [place] [address] * (ABNORMAL) Basic Metabolic Panel (non-fasting) (08/28/2023 9:07 PM EDT) [facility] Glucose Lvl 95 65 - 199 mg/dL [facility] Comment:Diabetes: >=200 mg/d L plus symptoms BUN 22(H) 8 - 18 mg/dL [facility] Creatinine 1.13 0.70 - 1.20 mg/dL [facility] Sodium 140 135 - 145 mmol/L [facility] Potassium 3.5 3.5 - 5.0 mmol/L [facility] Comment: Please note: ??Patients with WBC >100,000 may have falsely elevated Potassium levels. ??For accurate Potassium quantification in these patients send serum separator tube (gold top) for subsequent determinations. ??Contact the Clinical Chemistry Laboratory if there are any questions. Chloride 105 98 - 107 mmol/L [facility] CO2 21(L) 22 - 31 mmol/L [facility] Anion Gap 14 5 - 15 mmol/L [facility] Calcium 9.3 8.5 - 10.5 mg/dL [facility] Estimated GFR 58(L) >=60 mL/min/1. 73 m?? [facility] Comment: This patient's estimated GFR [...] Mcmanus MD CHEMISTRY ORDERABLES Performing Organization Address City/[facility]/ZIP Co de Phone Number [facility] [place] [address] * Magnesium (08/28/2023 9:07 PM EDT) Magnesium 1.05 0.69 - 1.07 mmol/L [facility] Blood 08/28/2023 9:07 PM EDT 08/28/2023 9:12 PM EDT Narrative Resulting Agency Comment Spec In Lab Archie Mcmanus MD CHEMISTRY ORDERABLES Performing Organization Address [facility]/ZIP Co de Phone Number [facility] [place] [address] documented in this encounter Visit Diagnoses Diagnosis [...] mg, Oral, EVERY EVENING, First dose on Wed08/28/23 at 2145, Until Discontinued, Routine Given 09/09/2023 [...] infusion 1 dose, Starting on 08/28/23 at 8, Until 08/28/23 at 2030, Samantha Patino: cabinet override heparin (porcine) 50 units/mL in dextrose 5% 500 mL infusion 0-5,000 Units/hr (0-100 mL/hr), Intravenous, CONTINUOUS, Starting on 08/28/23 at 2145, Until 08/30/23 at 1735, Begin infusion at 1,000 units [...] Nebulization, 4 TIMES DAILY PRN, Starting on 08/29/23 at 0549, Until Wed09/10/23 at 1932, Wheezing, [...] 3 mg, Oral, NIGHTLY PRN, Starting on 08/28/23 at 2049, Until Wed09/10/23 at 1932, Sleep, [...] 40 mg, Oral, DAILY, First dose on Wed08/29/23 at 0900, Until Discontinued Given 09/10/2023 8:22 [...] 20 mg, Oral, DAILY, First dose on 09/06/23 at 0900, Until Discontinued, Routine Given 09/07/2023 [...] (Given - Provider: Jo Ann Bello RN) 0822 (Given - Provider: Tim Cardoza RN) aspirin [...] 1130, Until Discontinued 0841 (Given - Provider: [employer] RN)2100 (Not Given - Provider: Jo Ann Bello RN - Reason: Patient/family refused) 08 (Not Given - Provider: Tim Cardoza RN [...] Bello RN) 08 (Given - Provider: Tim Cardoza, ERWIN)2038 (Given - Provider: Jo Ann Bello, ERWIN) 08 (Given - Provider: Tim Cardoza RN) [...] Cardoza RN)2040 (Given - Provider: Jo Ann Bello, ERWIN) 0829 (Given - Provider: Tim Cardoza, ERWIN) [...] RN) 2037 (Given - Provider: Jo Ann Bello RN) torsemide (Demadex) tablet 40 mg 40 mg, Oral, 2 TIMES DAILY, First dose (after last modification) on Wed09/07/23 at 2115, Until Discontinued, Routine 0839 (Given - Provider: Chayo Painting RN)1707 (Given - Provider: Ch[employer] RN) 0818 (Given - Provider: Tim Cardoza, ERWIN)1608 (Given - Provider: Tim Cardoza RN) 0822 (Given - Provider: Tim Cardoza RN)1700 [...] Oral, NIGHTLY PRN, Starting on Wed08/28/23 at 204, Until Wed09/10/23 at 1932, Sleep, Sleep, Routine 2100 (Given - Provider: Jo Ann Bello RN) 2039 (Given - Provider: Jo Ann Bello, ERWIN) nitroGLYcerin (Nitrostat) disintegrating tablet 0.4 mg 0.4 mg, Sublingual, EVERY 5 MIN PRN, Starting on 08/27/24 at 2048, Until Wed09/10/23 at 1932, Chest pain, SL nitroglycerin may be repeated [...] (Given - Provider: Jo Ann Bello, ERWIN) sodium chloride 0.9 % (flush) (BD PosiFlush Normal Saline 0.9) flush 5-20 mL 5-20 mL, Intravenous, EVERY 1 MIN PRN, Starting on Wed08/28/23 at 204, Until Wed09/10/23 at 1932, flush, Flush pertains [...] (Given - Provider: Jo Ann Bello, ERWIN) 2040 (Given - Provider: Jo Ann Bello, RN) documented in this encounter Care Teams Docking Pilot Relationship Specialty Start Date End Date Polo Pearce PA [facility] [address] [place] [address] PCP - General Internal Medicine 06/09/21 documented as of this encounter
--- OUTSIDE RECORDS SUMMARY | 2023-10-02 22:39 | XMS_ITS | Encounter Summary ---
Author Organization [facility], Later [facility] [place] [address] Care Team Providers Care Night Auditor Name Role Phone Polo Pearce Primary Care Provider [phone] Encounter Details Date Type Department Care Team (Late st Contact Info) Description 07/13/2023 Telephone Cardiology at [address] [phone] Sydney Gamez RN Social History Tobacco Use Types Packs/Day Years Used Date Smoking Tobacco: Never Smokeless Tobacco: Never Alcohol Use Standard Drinks/Week Comments Never 0 (1 standard drink = 0.6 oz pur e alcohol) [facility] Utilities Answer Date Recorded In [...] like the letter [email or web address] when completed. Will forward to her providers [...] appointments: During 8am-5pm Wednesday through Wednesday call [phone] to speak with a nurse in the cardiology clinic All other times call [phone] and ask to speak to the cytology laboratory manager administration manager. Return to work: One week Driving: No driving for 48 hours after catheterization. Follow up Appointments: PCP JOCY Franco [phone] 11:30am on July 19. Cardiology office will [...] AM EDT Tech [place] [address] Channing Escobedo [place] 10/08/2023 9:30 AM EDT Office [place] [address] MD [facility] [place] [address] 10/21/2023 10:30 AM EDT Appointment [place] [phone] [place] [address] 10/21/2023 11:30 AM EDT Appointment [place] [phone] [place] [address] 10/21/2023 12:30 PM EDT Appointment [place] [address] [place] [address] 10/21/2023 1:30 PM EDT Appointment [place] [address] [place] [address] 10/21/2023 2:30 PM EDT Appointment Nuclear Medicine at [place] [phone] Mary Reyes APRN [facility] [place] [address] 10/26/2023 4:00 PM EDT Office Visit Cardiology at [address] [phone] Jaspreet Kinsey MD [facility] [address] 10/28/2023 9:00 AM EDT Office [place] [address] 10/29/2023 10:00 AM EDT Clinical Support [place] [address] 10/29/2023 10:15 AM EDT Procedure [place] [address] 11/01/2023 5:00 PM EDT Office Visit Gastroenterology at [place] [phone] Selene Browning, PhD [facility] [place] [address] 11/22/2023 4:40 PM EDT Office Visit Cardiology at [address] [phone] Porsha Mcdaniels MD [facility] [place] [address] 12/13/2023 10:00 AM EDT Clinical [place] [address] Lucero Romero, [facility] [place] [address] documented as of this encounter Visit Diagnoses Not on filedocumented in this encounter Care Teams Night Auditor Relationship Specialty Start Date End Date Polo Pearce PA S[address] [place] [address] PCP - General Internal Medicine 06/09/21 documented as of this encounter
--- OUTSIDE RECORDS SUMMARY | 2023-10-02 22:39 | XMS_ITS | Encounter Summary ---
Author Organization [facility] Address [facility] [place] [address] Care Team Providers Care Control Systems Drafting Officer Name Role Phone Polo Pearce Primary Care Provider [phone] Encounter Details Date Type Department Care Team (Latest Contact Info) Description 08/25/2023 Travel Social History Tobacco Use Types Packs/Day Years Used Date Smoking Tobacco: Never Smokeless Tobacco: Never Alcohol Use Standard Drinks/Week Comments Never 0 (1 standard drink = 0.6 oz pur e alcohol) [facility] Utilities Answer Date Recorded In the past [...] EDT Tech Visit [place] [phone] [address] Escobedo [place] 10/08/2023 9:30 AM EDT Office Visit [place] [phone] MD [facility] [place] [address] 10/21/2023 10:30 AM EDT Appointment [place] [phone] Mary Reyes CARDIOPULMONARY SUPERVISOR [facility] [place] [address] 10/21/2023 11:30 AM EDT Appointment [place] [phone] Mary Reyes APRN [facility] [place] [address] 10/21/2023 12:30 PM EDT Appointment [place] [address] Mary Reyes, [place] [address] 10/21/2023 1:30 PM EDT Appointment [place] [address] Mary Reyes CARDIOP[place] [address] 10/21/2023 2:30 PM EDT Appointment [place] [address] [place] [address] 10/26/2023 4:00 PM EDT Office Visit Cardiology at [address] [phone] Jaspreet Kinsey MD [facility] [place] [address] 10/28/2023 9:00 AM EDT Office [place] [address] 10/29/2023 10:00 AM EDT Clinical [place] [address] 10/29/2023 10:15 AM EDT Procedure [place] [address] 11/01/2023 5:00 PM EDT Office Visit [place] [address] Selene Browning, PhD [facility] [place] [address] 11/22/2023 4:40 PM EDT Office Visit Cardiology at [address] [phone] Porsha Mcdaniels MD [facility] [place] [address] 12/13/2023 10:00 AM EDT Clinical Support [place] [address] [facility] [place] [address] documented as of this encounter Visit Diagnoses Not on filedocumented in this encounter Care Teams Control Systems Drafting Officer Relationship Specialty Start Date End Date Polo Pearce PA Sb MOTT [address] [place] [address] PCP - General Internal Medicine 06/09/21 documented as of this encounter
--- OUTSIDE RECORDS SUMMARY | 2023-10-02 22:39 | XMS_ITS | Encounter Summary ---
Author Organization Formerly [facility] [place] [address] Care Team Providers Care Underwriting Specialist Name Role Phone Polo Pearce Primary Care Provider [phone] Encounter Details Date Type Department Care Team (Late st Contact Info) Description 08/28/2023 External [place] [phone] Social History Tobacco Use Types Packs/Day Years [...] in a chcf (including now)? No 06/15/2023 Housing Stability Vital [...] time in the past 12 m [facility], were you homeless or living in a chcf (including now)? No 08/30/2023 IPV Inpatient Questions [...] EDT Tech [place] [address] Ch[address] Escobedo [place] 10/08/2023 9:30 AM EDT Office [place] [address] [facility] DR VASCULAR SURGERY [place] [phone] 10/21/2023 10:30 AM EDT Appointment [place] [address] [facility] [place] [address] 10/21/2023 11:30 AM EDT Appointment Nuclear Medicine at [place] [phone] Mary Reyes [place] [address] 10/21/2023 12:30 PM EDT Appointment [place] [address] Mary Reyes [place] [address] 10/21/2023 1:30 PM EDT Appointment [place] [address] Mary Reyes [place] [address] 10/21/2023 2:30 PM EDT Appointment [place] [address] Mary Reyes [place] [address] 10/26/2023 4:00 PM EDT Office Visit Cardiology at [address] [phone] [facility] [place] [address] 10/28/2023 9:00 AM EDT Office [place] [address] 10/29/2023 10:00 AM EDT Clinical [place] [address] 10/29/2023 10:15 AM EDT Procedure [place] [address] 11/01/2023 5:00 PM EDT Office [place] [address] Selene Browning, PhD [facility] [place] [address] 11/22/2023 4:40 PM EDT Office Visit Cardiology at [address] [phone] [facility] [place] [address] 12/13/2023 10:00 AM EDT Clinical Support [place] [address] Lucero Romero, [facility] [place] [address] documented as of this encounter Procedures Procedure Name Priority Date/Time Associated Diagnosis Comments ECG SCAN Routine 08/28/2023 11:53 AM EDT documented in this encounter Results * Scan Doc: ECG (08/28/2023 11:53 AM EDT) Historical Provider MEDIA MGR SCAN EX T ORDR/RSLT documented in this encounter Visit Diagnoses Not on filedocumented in this encounter Care Teams Underwriting Specialist Relationship Specialty Start Date End Date Polo Pearce PA Sb M[address] [place] [address] PCP - General Internal Medicine 06/09/21 documented as of this encounter
--- OUTSIDE RECORDS SUMMARY | 2023-10-02 22:39 | XMS_ITS | Encounter Summary ---
Author Organization [facility] Address [facility] [place] [address] Care Team Providers Care Try On Baster Name Role Phone Polo Pearce Primary Care Provider [phone] Encounter Details Date Type Department Care Team (Latest Contact Info) Description 08/17/2023 Travel Social History Tobacco Use Types Packs/Day Years Used Date Smoking Tobacco: Never Smokeless Tobacco: Never Alcohol Use Standard Drinks/Week Comments Never 0 (1 standard drink = 0.6 oz pur e alcohol) [facility] Utilities Answer Date Recorded In the [...] in a fdc (including now)? No 06/15/2023 IPV Inpatient Questions [...] AM EDT Tech [place] [phone] Ch[address] Escobedo [place] 10/08/2023 9:30 AM EDT Office [place] [phone] MD [facility] [place] [address] 10/21/2023 10:30 AM EDT Appointment [place] [phone] Mary Reyes ROTARY HELPER [facility] [place] [address] 10/21/2023 11:30 AM EDT Appointment [place] [phone] Mary Reyes APRN [facility] [place] [address] 10/21/2023 12:30 PM EDT Appointment [place] [address] Mary Reyes, [place] [address] 10/21/2023 1:30 PM EDT Appointment [place] [address] Mary [place] [address] 10/21/2023 2:30 PM EDT Appointment [place] [address] [place] [address] 10/26/2023 4:00 PM EDT Office Visit Cardiology at [address] [phone] Jaspreet Kinsey MD [facility] [address] 10/28/2023 9:00 AM EDT Office Visit [place] [address] 10/29/2023 10:00 AM EDT Clinical Support [place] [address] 10/29/2023 10:15 AM EDT Procedure visit [place] [address] 11/01/2023 5:00 PM EDT Office [place] [address] Selene Browning, PhD [facility] [place] [address] 11/22/2023 4:40 PM EDT Office Visit Cardiology at [address] [phone] Porsha Mcdaniels MD [facility] [place] [address] 12/13/2023 10:00 AM EDT Clinical [place] [address] [facility] [place] [address] documented as of this encounter Visit Diagnoses Not on filedocumented in this encounter Care Teams Try On Baster Relationship Specialty Start Date End Date Polo Pearce PA Sb MOTT [address] [place] [address] PCP - General Internal Medicine 06/09/21 documented as of this encounter
--- OUTSIDE RECORDS SUMMARY | 2023-10-02 22:39 | XMS_ITS | Encounter Summary ---
Author Organization [facility] Address [facility] [place] [address] Care Team Providers Care Business Analyst Manager Name Role Phone Polo Pearce Primary Care Provider [phone] Encounter Details Date Type Department Care Team (Latest Contact Info) Description 07/26/2023 Travel Social History Tobacco Use Types Packs/Day Years Used Date Smoking Tobacco: Never Smokeless Tobacco: Never Alcohol Use Standard Drinks/Week Comments Never 0 (1 standard drink = 0.6 oz pur e alcohol) [facility] Utilities Answer Date Recorded In [...] AM EDT Tech [place] [phone] [address] Escobedo [place] 10/08/2023 9:30 AM EDT Office Visit [place] [phone] MD [facility] [place] [place] [address] 10/21/2023 10:30 AM EDT Appointment [place] [phone] Mary Reyes SUPERVISORY AIR INTERCEPT CONTROLLER [facility] [place] [address] 10/21/2023 11:30 AM EDT Appointment [place] [phone] Mary Reyes APRN [facility] [place] [address] 10/21/2023 12:30 PM EDT Appointment [place] [address] Mary Reyes, [place] [address] 10/21/2023 1:30 PM EDT Appointment [place] [address] Mary Reyes SUPERVISORY AIR INTER[employer] [place] [address] 10/21/2023 2:30 PM EDT Appointment [place] [address] [place] [address] 10/26/2023 4:00 PM EDT Office Visit Cardiology at [address] [phone] Jaspreet Kinsey MD [facility] [place] [address] 10/28/2023 9:00 AM EDT Office [place] [address] 10/29/2023 10:00 AM EDT Clinical [place] [address] 10/29/2023 10:15 AM EDT Procedure [place] [address] 11/01/2023 5:00 PM EDT Office Visit [place] [address] Selene Browning, PhD [facility] [place] [address] 11/22/2023 4:40 PM EDT Office Visit Cardiology at [address] [phone] Porsha Mcdaniels MD [facility] [place] [address] 12/13/2023 10:00 AM EDT Clinical Support [place] [address] [facility] [place] [address] documented as of this encounter Visit Diagnoses Not on filedocumented in this encounter Care Teams Business Analyst Manager Relationship Specialty Start Date End Date Polo Pearce PA Sb MOTT [address] [place] [address] PCP - General Internal Medicine 06/09/21 documented as of this encounter
--- OUTSIDE RECORDS SUMMARY | 2023-10-02 22:39 | XMS_ITS | Encounter Summary ---
Author Organization [facility] [place] [address] Care Team Providers Care Forest Ecologist Name Role Phone Polo Pearce Primary Care Provider [phone] Reason for Referral * Diagnostic Test (Routine) - Closed Specialty Diagnoses / Procedures Referred By Contac t Referred To Contact Radiology Diagnoses Chest pain, unspecified type Procedures NM PET CT Cardiac Pharmacologic Stress CT Component Porsha Mcdaniels MD [facility] [place] [address] [place] [address] Referral ID Status Reason Start Date Expiration Date V isits Requested Visits Authorized [id number] Closed Specialty Service Requested 08/03/2023 10/01/2023 1 1 * Diagnostic Test (Routine) - Closed Specialty Diagnoses / Procedures Referred By Contac t Referred To Contact Radiology Diagnoses Chest pain, unspecified type Procedures NM PET CT Cardiac Pharmacologic Stress and Rest Porsha Mcdaniels MD [facility] [place] [address] [place] [address] Referral ID Status Reason Start Date Expiration Date V isits Requested Visits Authorized [id number] Closed Specialty Service Requested 08/03/2023 10/01/2023 1 1 Reason for Visit * Diagnostic Test (Routine) - Closed Specialty Diagnoses / Procedures Referred By Contac t Referred To Contact Radiology Diagnoses Chest pain, unspecified type Procedures NM PET CT Cardiac Pharmacologic Stress and Rest Porsha Mcdaniels MD [facility] [place] [address] [place] [address] Referral ID Status Reason Start Date Expiration Date V isits Requested Visits Authorized [id number] Closed Specialty Service Requested 08/03/2023 10/01/2023 1 1 Encounter Details Date Type Department Care Team (Latest Contact Info) Description 08/17/2023 11:52 AM EDT Hospital En[place] [address] Porsha Mcdaniels MD [facility] [place] [address] Chest pain, unspecified type Discharge Disposition: Home Social History Tobacco Use Types Packs/Day Years Used Date Smoking Tobacco: Never Smokeless Tobacco: Never Alcohol Use Standard Drinks/Week Comments Never 0 (1 standard drink = 0.6 oz pur e alcohol) [facility] Utilities Answer Date Recorded In the past 12 months has [employer] electric, gas, oil, or water company threatened [...] as needed. fluticasone propionate (FLONASE) 50 mcg/actuation [place], Suspension 1 spray by Each Nare route [...] AM EDT Tech Visit [place] [address] Channing [place] 10/08/2023 9:30 AM EDT Office Visit Vascular [place] [address] MD [facility] [place] [address] 10/21/2023 10:30 AM EDT Appointment Nuclear Medicine at [place] [phone] [place] [address] 10/21/2023 11:30 AM EDT Appointment Nuclear Medicine at [address] [place] [address] 10/21/2023 12:30 PM EDT Appointment [place] [address] [place] [place] [address] 10/21/2023 1:30 PM EDT Appoint[place] [address] [place] [address] 10/21/2023 2:30 PM EDT Appointment [place] [address] [place] [address] 10/26/2023 4:00 PM EDT Office Visit Cardiology at [address] [address] Jaspreet Kinsey MD [facility] [address] 10/28/2023 9:00 AM EDT Office [place] [address] 10/29/2023 10:00 AM EDT Clinical [place] [address] 10/29/2023 10:15 AM EDT Procedure [place] [address] 11/01/2023 5:00 PM EDT Office Visit G[place] [address] Selene Browning, PhD [facility] [place] [address] 11/22/2023 4:40 PM EDT Office Visit Cardiology at [address] [phone] Porsha Mcdaniels MD [facility] [address] 12/13/2023 10:00 AM EDT Clinical Support G[place] [address] [facility] [place] [address] documented as of this encounter Procedures Procedure [...] Component (08/17/2023 2:38 PM EDT) WORKSTATION ID [id number] RAD Anatomical Region Laterality Modality Positron Emissio [...] questions please contact the health health care marketing manager that requested 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 ? Electronically signed by: Clay Stanton MD, [facility] ([phone]), at 08/18/2023 2:49 PM Narrative 08/18/2023 2:49 [...] Coronary calcifications. Bilateral ground glass opacities are [id number] Procedure Note Clay Stanton MD - 08/18/2023 EXAMINATION: WI PET CT CARDIAC PHARMACOLOGIC STRESS AND REST, WI PET CTCARDIAC PHARMACOLOGIC STRESS CT COMPONENT CLINICAL [...] Coronary calcifications. Bilateral ground glass opacities are [id number] IMPRESSION Moderate-sized scar in the apical septum [...] have questions please contactthe health health care marketing manager that requested 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 Electronically signed by: Clay Stanton MD, [facility]([phone]), at 08/18/2023 2:49 PM Porsha Mcfarlane MD IMG PET ORDERABLES * NM PET CT Cardiac Pharmacologic Stress and Rest (08/17/2023 2:38 PM EDT) [employer] WORKSTATION ID [id number] [facility] Anatomical Region Laterality Modality Positron Emissio n [...] questions please contact the health health care marketing manager that requested 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 ? Electronically signed by: Clay Stanton MD, [facility] ([phone]), at 08/18/2023 2:49 PM Narrative 08/18/2023 2:49 PM EDT EXAMINATION: WI PET CT CARDIAC PHARMACOLOGIC STRESS AND REST, WI PET CT CARDIAC PHARMACOLOGIC STRESS CT COMPONENT [...] Coronary calcifications. Bilateral ground glass opacities are [id number] Procedure Note Clay Stanton MD - 08/18/2023 EXAMINATION: WI PET CT CARDIAC PHARMACOLOGIC STRESS AND REST, WI PET CTCARDIAC PHARMACOLOGIC STRESS CT COMPONENT CLINICAL [...] Coronary calcifications. Bilateral ground glass opacities are [id number] IMPRESSION Moderate-sized scar in the apical septum [...] have questions please contactthe health health care marketing manager that requested 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 Electronically signed by: Clay Stanton MD, [facility]([phone]), at 08/18/2023 2:49 PM Porsha Mcfarlane MD [...] Arm documented in this encounter Care Teams Forest Ecologist Relationship Specialty Start Date End Date Polo Pearce PA [address] [place] [address] PCP - General Internal Medicine 06/09/21 documented as of this encounter
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
--- OUTSIDE RECORDS SUMMARY | 2023-10-02 22:39 | XMS_ITS | Encounter Summary ---
Author Organization [facility] Address [facility] [place] [address] Care Team Providers Care Extruding Machine Operator Name Role Phone Polo Pearce Primary Care Provider [phone] Encounter Details Date Type Department Care Team (Late st Contact Info) Description 07/12/2023 Refill Cardiology at [address] [place] [phone] Jaspreet Kinsey MD [facility] [place] [address] Social History Tobacco Use Types Packs/Day Years Used Date Smoking Tobacco: Never Smokeless Tobacco: Never Alcohol Use Standard Drinks/Week Comments Never 0 (1 standard drink = 0.6 oz pur e alcohol) [facility] Utilities Answer Date Recorded In the past 12 months has [employer], gas, oil, or water [employer] threatened to shut off services in your [...] mg., 2-2x daily, none left. Patient uses [facility] in [place], [place]. She can be reached @ [phone]. documented in this encounter Plan of Treatment Upcoming Encounters Date Type Department Care Team (Late st Contact Info) Description 10/08/2023 8:30 AM EDT Tech Visit [place] [address] Channing Escobedo [place] 10/08/2023 9:30 AM EDT Office [place] [address] [facility] [place] [address] 10/21/2023 10:30 AM EDT Appointment Nuclear Medicine at [place] [phone] [place] [address] 10/21/2023 11:30 AM EDT Appointment [place] [address] [place] [address] 10/21/2023 12:30 PM EDT Appointment [place] [address] Mary Reyes [facility] [place] [address] 10/21/2023 1:30 PM EDT Appointment [place] [address] Mary Reyes [place] [place] [address] 10/21/2023 2:30 PM EDT Appointment [place] [address] [place] [address] 10/26/2023 4:00 PM EDT Office Visit Cardiology at [address] [phone] Jaspreet Kinsey MD [facility] [place] [address] 10/28/2023 9:00 AM EDT Office [place] [address] 10/29/2023 10:00 AM EDT Clinical [place] [address] 10/29/2023 10:15 AM EDT Procedure [place] [address] 11/01/2023 5:00 PM EDT Office Visit Gastroenterology at [place] [phone] Selene Browning, PhD [facility] [place] [address] 11/22/2023 4:40 PM EDT Office Visit Cardiology at [address] [address] Porsha Mcdaniels MD [facility] [place] [address] 12/13/2023 10:00 AM EDT Clinical Support [place] [address] Lucero Romero, ALVA [facility] [place] [address] documented as of this encounter Visit Diagnoses Diagnosis Heart failure with preserved ejection fraction, unspecified HF chronicity documented in this encounter Care Teams Extruding Machine Operator Relationship Specialty Start Date End Date Polo Pearce PA [address] [place] [address] PCP - General Internal Medicine 06/09/21 documented as of this encounter
--- OUTSIDE RECORDS SUMMARY | 2023-10-02 22:39 | XMS_ITS | Encounter Summary ---
Author Organization [facility] Address [facility] [place] [address] Care Team Providers Care Metallurgical Laboratory Assistant Name Role Phone Polo Pearce Primary Care Provider [phone] Encounter Details Date Type Department Care Team (Late st Contact Info) Description 08/28/2023 1:05 PM EDT Ancillary Procedure [place] [address] Jaspreet Kinsey MD [facility] [place] [address] Social History Tobacco Use Types Packs/Day Years Used Date Smoking Tobacco: Never Smokeless Tobacco: Never Alcohol Use Standard Drinks/Week Comments Never 0 (1 standard drink = 0.6 oz pur e alcohol) [facility] Utilities Answer Date Recorded In the past 12 months has e [employer], gas, oil, or water [email or web address] threatened to shut off services in your [...] Tech [place] [phone] Channing [place] 10/08/2023 9:30 AM EDT Office Visit [place] [address] MD [facility] [place] [address] 10/21/2023 10:30 AM EDT Appointment [place] [address] Mary Reyes APRN [facility] [place] [address] 10/21/2023 11:30 AM EDT Appointment [place] [address] Mary Reyes [facility] [place] [address] 10/21/2023 12:30 PM EDT Appointment [place] [address] Mary Reyes [facility] [place] [address] 10/21/2023 1:30 PM EDT Appointment [place] [address] [place] [address] 10/21/2023 2:30 PM EDT Appointment [place] [address] [place] [address] 10/26/2023 4:00 PM EDT Office Visit Cardiology at [address] [phone] Jaspreet Kinsey MD [facility] [place] [address] 10/28/2023 9:00 AM EDT Office [place] [address] 10/29/2023 10:00 AM EDT Clinical [place] [address] 10/29/2023 10:15 AM EDT Procedure [place] [address] 11/01/2023 5:00 PM EDT Office Visit [place] [address] Selene Browning, PhD [facility] [place] [address] 11/22/2023 4:40 PM EDT Office Visit Cardiology at [address] [address] Porsha Mcdaniels MD [facility] [place] [address] 12/13/2023 10:00 AM EDT Clinical Support [place] [address] [facility] [place] [address] documented as of this encounter Procedures Procedure Name Priority Date/Time Associated Diagnosis Comments FILM LIBRARY STORAGE ONLY CT CHEST Routine 08/28/2023 1:00 PM EDT documented in this encounter Results * Film Library- Storage Only CT Chest (08/28/2023 1:00 PM EDT) Narrative [facility] - 08/28/2023 1:00 PM EDT This exam is auto-finalizing. It's purpose is for storage only. Jaspreet Kinsey MD IMG FILM LIBRARY ORD ERABLES [place], [place] documented in this encounter Visit Diagnoses Not on filedocumented in this encounter Care Teams Metallurgical Laboratory Assistant Relationship Specialty Start Date End Date Polo Pearce PA Sb MOTT [address] [place] [address] PCP - General Internal Medicine 06/09/21 documented as of this encounter
--- OUTSIDE RECORDS SUMMARY | 2023-10-02 22:39 | XMS_ITS | Encounter Summary ---
Author Organization [facility] Address [facility] [place] [address] Care Team Providers Care Gas Pump Attendant Name Role Phone Polo Pearce Primary Care Provider [phone] Reason for Visit * Reason Comments Congestive Heart Failure Atrial Fibrillation Encounter Details Date Type Department Care Team (Late st Contact Info) Description 07/26/2023 3:20 PM EDT Office Visit Cardiology at [address] [address] Jaspreet Kinsey MD [facility] [address] Heart failure with preserved ejection fraction, unspecified HF chronicity; Paroxysmal atrial fibrillation; SVT (supraventricular tachycardia); Chest pain, unspecified type Social History Tobacco Use Types Packs/Day Years Used Date Smoking Tobacco: Never Smokeless Tobacco: Never Alcohol Use Standard Drinks/Week Comments Never 0 (1 standard drink = 0.6 oz pur e alcohol) [facility] Utilities Answer Date Recorded In the [...] Failure Atrial Fibrillation HPI Last seen by az 05/2023, at which time the comprehensive cardiac [...] Oral, DAILY fluticasone propionate (FLONASE) 50 mcg/actuation [place], Suspension 1 spray, Each Nare, PRN gabapentin [...] sarcoid. Anterior scar pattern 06/2023: Admission at [facility] [place] TTE with low-normal EF, though anterior [...] AM EDT Tech Visit Vascular Lab at [place] [phone] Channing Escobedo [place] 10/08/2023 9:30 AM EDT Office [place] [address] MD [facility] [place] [address] 10/21/2023 10:30 AM EDT Appointment [place] [address] Mary Reyes APRN [facility] [place] [address] 10/21/2023 11:30 AM EDT Appointment [place] [address] Mary Reyes [facility] [place] [address] 10/21/2023 12:30 PM EDT Appointment [place] [address] Mary Reyes [facility] [place] [address] 10/21/2023 1:30 PM EDT Appointment [place] [address] Mary Reyes [facility] [place] [address] 10/21/2023 2:30 PM EDT Appointment [place] [address] [place] [address] 10/26/2023 4:00 PM EDT Office Visit Cardiology at [address] [phone] Jaspreet Kinsey MD [facility] [place] [address] 10/28/2023 9:00 AM EDT Office [place] [address] 10/29/2023 10:00 AM EDT Clinical [place] [address] 10/29/2023 10:15 AM EDT Procedure [place] [address] 11/01/2023 5:00 PM EDT Office [place] [address] Selene Browning, PhD [facility] [place] [address] 11/22/2023 4:40 PM EDT Office Visit Cardiology at [address] [address] Porsha Mcdaniels MD [facility] [place] [address] 12/13/2023 10:00 AM EDT Clinical Support Gastroenterology at [place] [phone] Lucero Romero, ALVA [facility] [place] [address] documented as of this encounter Visit Diagnoses Diagnosis Heart failure with preserved ejection fraction, unspecified HF chronicity Paroxysmal atrial fibrillation Atrial fibrillation SVT (supraventricular tachycardia) Other specified cardiac dysrhythmias Chest pain, unspecified type documented in this encounter Care Teams Gas Pump Attendant Relationship Specialty Start Date End Date Polo Pearce PA [address] [place] [address] PCP - General Internal Medicine 06/09/21 documented as of this encounter
--- OUTSIDE RECORDS SUMMARY | 2023-10-02 22:39 | XMS_ITS | Encounter Summary ---
[place] [address] Care Team Providers Care Chief Engineer Production Name Role Phone Polo Pearce Primary Care Provider [phone] Reason for Visit * Auth/Cert (Routine) Specialty Diagnoses / Procedures Referred By Jayant harris Referred To Contact Diagnoses NSTEMI (non-ST elevated myocardial infarction) NSTEMI Procedures EMERGENCY [place] [address] [facility] Referral ID Status Reason Start Date Expiration Date Visits Re quested Visits Authorized [id number] 1 1 Encounter Details Date Type Department Care Team (Latest Contact Info) Description 08/25/2023 1:05 PM EDT Laboratory Appointment Lab [address] [place] [phone] Heart failure with preserved ejection fraction, unspecified HF chronicity; Chronic kidney disease, unspecified CKD stage; Altered bowel function; Depression, unspecified depression type Social History Tobacco Use Types Packs/Day Years Used Date Smoking Tobacco: Never Smokeless Tobacco: Never Alcohol Use Standard Drinks/Week Comments Never 0 (1 standard drink = 0.6 oz pur e alcohol) [facility] Utilities Answer Date Recorded In the past 12 months has [email or web address] electric, gas, oil, or water company threatened [...] in a snf (including now)? No 06/15/2023 IPV Inpatient Questions [...] AM EDT Tech [place] [address] Channing Escobedo [place] 10/08/2023 9:30 AM EDT Office [place] [phone] MD [facility] [place] [address] 10/21/2023 10:30 AM EDT Appointment [place] [address] Mary Reyes [facility] [place] [address] 10/21/2023 11:30 AM EDT Appointment [place] [address] Mary Reyes [facility] [place] [address] 10/21/2023 12:30 PM EDT Appointment [place] [phone] Mary Reyes [facility] [place] [address] 10/21/2023 1:30 PM EDT Appointment [place] [address] Mary Reyes [facility] [place] [address] 10/21/2023 2:30 PM EDT Appointment [place] [address] Mary Reyes [facility] [place] [address] 10/26/2023 4:00 PM EDT Office Visit Cardiology at [address] [phone] Jaspreet Kinsey MD [facility] [place] [address] 10/28/2023 9:00 AM EDT Office Visit [place] [address] 10/29/2023 10:00 AM EDT Clinical [place] [address] 10/29/2023 10:15 AM EDT Procedure [place] [address] 11/01/2023 5:00 PM EDT Office [place] [phone] Selene Browning, PhD [facility] [place] [address] 11/22/2023 4:40 PM EDT Office Visit Cardiology at [address] [phone] Porsha Mcdaniels MD [facility] [place] [address] 12/13/2023 10:00 AM EDT Clinical [place] [phone] [facility] [place] [address] documented as of this encounter Procedures Procedure [...] unspecified HF chronicity HC DNA AB DS ([place]) Routine 08/25/2023 11:28 AM EDT Heart failure [...] EDT) IgA 372 70 - 400 mg/dL [facility] Blood 08/25/2023 11:2 8 AM EDT 08/25/2023 11:37 AM EDT Narrative Resulting Agency Comment Spec In Lab Mary Reyes HOUSEKEEPING DEPARTMENT WORKER IMMUNOLOGY ORDERAB LES [facility] [place] [address] * IgG (08/25/2023 11:28 AM EDT) [facility] IgG 1,114 700 - 1,600 mg/dL [facility] Comment: Pediatric Reference Intervals obtained from the Caliper Reference Interval project. http://www.sickTwitpayds.ca/caliperproject/index.html Blood 08/25/2023 11:2 8 AM EDT 08/25/2023 11:37 AM EDT Narrative Resulting Agency Comment Spec In Lab Mary Gray Amy CUETO IMMUNOLOGY ORDERAB LES Performing Organization Address [facility] Co de Phone Number [facility] [place] [address] * Tissue transglutaminase, IgA (08/25/2023 11:28 AM EDT) [facility] TTG IgA Ab 0.6 <=10.0 u/ml [facility] Comment: Negative: ??<7 units/mL Indeterminate: 7-10 units/mL Positive: ??>10 units/mL Blood 08/25/2023 11:2 8 AM EDT 08/26/2023 7:26 AM EDT Narrative Resulting Agency Comment Spec In Lab Mary Gray Amy CUETO IMMUNOLOGY ORDERAB LES Performing Organization Address City/[facility] Co de Phone Number [facility] [place] [address] * (ABNORMAL) Basic Metabolic Panel (non-fasting) (08/25/2023 11:28 AM EDT) [facility] Glucose Lvl 111 65 - 199 mg/dL [facility] Comment:Diabetes: >=200 mg/d L plus symptoms BUN 29(H) 8 - 18 mg/dL [facility] Creatinine 1.41(H) 0.70 - 1.20 mg/dL [facility] Sodium 140 135 - 145 mmol/L [facility] Potassium 3.6 3.5 - 5.0 mmol/L [facility] Comment: Please note: ??Patients with WBC >100,000 may have falsely elevated Potassium levels. ??For accurate Potassium quantification in these patients send serum separator tube (gold top) for subsequent determinations. ??Contact the Clinical Chemistry Laboratory if there are any questions. Chloride 99 98 - 107 mmol/L [facility] CO2 29 22 - 31 mmol/L [facility] Anion Gap 12 5 - 15 mmol/L [facility] Calcium 10.0 8.5 - 10.5 mg/dL [facility] Estimated GFR 44(L) >=60 mL/min/1. 73 m?? [facility] Comment: This patient's estimated [...] In Lab Lloyd Keating MD CHEMISTRY ORDERABLES [facility] [place] [address] * KATHRINE Antibody Screen (08/25/2023 11:28 AM EDT) Antinuclear Ab Negative Negative [facility] Comment: This antinuclear antibody (KATHRINE) screen is a qualitative test performed using a fluoroenzyme immunoassay on the inEarth 250 analyzer. This screen is designed to detect antibodies to U1RNP, SS-A/Ro, SS-B/La, centromere B, Scl-70, Dasia-1, and Sm(Alcantar) proteins in serum samples. Antibodies to other nuclear antibodies will not be detected with this assay. This KATHRINE screen is also performed in concert with a quantitative for IgG antibodies to dsDNA. dsDNA Ab 1.0 <=15.0 IU/mL [facility] Comment: <10 negative 10-15 equivocal >15 positive This dsDNA antibody result was generated using a fluoroenzyme immunoassay on the inEarth 250 analyzer. This quantitative test is designed to detect IgG antibodies directed against double stranded DNA in human serum. The presence of antibodies that recognize dsDNA is a highly specific marker for systemic lupus erythematosus. Please note that as of 12/30/2021 that this testing is performed by the Special Chemistry Laboratory at [facility]. This change in testing location is associated with a change is testing method and reference intervals. Please review the results of this test in association with the posted reference intervals. Blood 08/25/2023 11:2 8 AM EDT 08/26/2023 7:26 AM EDT Narrative Resulting Agency Comment Spec In Lab Jaspreet Kinsey MD IMMUNOLOGY ORDERABLE S Performing Organization Address City/State/[facility] Co de Phone Number [facility] [place] [address] * (ABNORMAL) Protein Electrophoresis, serum (08/25/2023 11:28 AM EDT) Total Prot Elec 7.5 6.1 - 8.0 g/dL [facility] Albumin Elect 4.62 3.20 - 5.20 g/dL [facility] Alpha1-Globul in 0.20 0.10 - 0.30 g/dL [facility] Alpha2-Globul in 0.92(H) 0.40 - 0.90 g/dL [facility] Beta Globulin 0.89 0.50 - 1.00 g/dL [facility] Gamma Globulin 0.88 0.50 - 1.30 g/dL [facility] M1 Band None Detected None Detected [facility] Blood 08/25/2023 11:2 8 AM EDT 08/25/2023 11:37 AM EDT Narrative Resulting Agency Comment Spec In Lab Jaspreet Kinsey MD CHEMISTRY ORDERABLES Performing Organization Address City/[facility]/ZIP Co de Phone Number [facility] [place] [address] * (ABNORMAL) Free Light Chains, Serum (08/25/2023 11:28 AM EDT) [place]ham Free Light Chain 3.09(H) 0.72 - 2.75 mg/dL [facility] Lambda Free Light Chain 1.65 0.57 - 2.15 mg/dL [facility] Bonham Lambda FLC Ratio 1.8727 0.4000 - 2.5800 [facility] Blood 08/25/2023 11:2 8 AM EDT 08/25/2023 11:36 AM EDT Narrative Resulting Agency Comment Spec In Lab Jaspreet Kinsey MD CHEMISTRY ORDERABLES Performing Organization Address [facility]/ZIP Co de Phone Number [facility] [place] [address] * Iron and TIBC (08/25/2023 11:28 AM EDT) Iron 113 30 - 150 mcg/dL [facility] TIBC 338 250 - 450 mcg/dL [facility] Iron Saturation 33 20 - 50 % [facility] Blood 08/25/2023 11:2 8 AM EDT 08/25/2023 11:36 AM EDT Narrative Resulting Agency Comment Spec In Lab Jaspreet Kinsey MD CHEMISTRY ORDERABLES Performing Organization Address City/[facility]/ZIP Co de Phone Number [facility] [place] [address] * Ferritin (08/25/2023 11:28 AM EDT) Ferritin 110 11 - 328 ng/mL [facility] Comment: Please note that as of 02/10/2023, the reference intervals for Ferritin have been updated. Blood 08/25/2023 11:2 8 AM EDT 08/25/2023 11:37 AM EDT Narrative Resulting Agency Comment Spec In Lab Jaspreet Kinsey MD CHEMISTRY ORDERABLES Performing Organization Address [facility] Co de Phone Number [facility] [place] [address] * Lyme IgG & IgM Antibody (08/25/2023 11:28 AM EDT) [facility] Lyme Screening Antibody Negative Negative [facility] Lyme Ab Comment Negative result does not exclude possibility of infection. [facility] Comment: Please note that as of 07/14/2022 that this testing is performed by the Special Chemistry Laboratory at [facility]. This change in testing location is associated with a change in testing methodology. Blood 08/25/2023 11:2 8 AM EDT 08/26/2023 7:26 AM EDT Narrative Resulting Agency Comment Spec In Lab Jaspreet Kinsey MD IMMUNOLOGY ORDERABLE S Performing Organization Address City/[facility] Co de Phone Number [facility] [place] [address] * Streptococcal Antibody Panel (08/25/2023 11:28 AM EDT) [facility] ASO Titer 25 0 - 530 IU/mL [facility] Comment: Test Performed by: [facility] [address] Rewinder: Nellie Haney Ph.D.; CLIA# [id number] DNase B Ab 146 0 - 300 unit/mL [facility] Comment: Test Performed by: [facility] [place] [address]245 Rewinder: Nellie Haney Ph.D.; CLIA# [id number] Blood 08/25/2023 11:2 8 AM EDT 08/25/2023 1:02 PM EDT Narrative Resulting Agency Comment Spec In Lab Jaspreet Kinsey MD [place] [address] documented in this encounter Visit Diagnoses Diagnosis Heart failure with preserved ejection fraction, unspecified HF chronicity Chronic kidney disease, unspecified CKD stage Altered bowel function Other symptoms involving digestive system Depression, unspecified depression type documented in this encounter Care Teams Chief Engineer Production Relationship Specialty Start Date End Date Polo Pearce PA [address] [place] [address] PCP - General Internal Medicine 06/09/21 documented as of this encounter
--- OUTSIDE RECORDS SUMMARY | 2023-10-02 22:39 | XMS_ITS | Encounter Summary ---
Author Organization [place] [address] Care Team Providers Care Entertainment Usher Name Role Phone Polo Pearce Primary Care Provider [phone] Encounter Details Date Type Department Care Team (Late st Contact Info) Description 08/28/2023 [place] [phone] [place] [address] Social History Tobacco Use Types Packs/Day Years Used Date Smoking Tobacco: Never Smokeless Tobacco: Never Alcohol Use Standard Drinks/Week Comments Never 0 (1 standard drink = 0.6 oz pur e alcohol) [facility] Utilities Answer Date Recorded In the past 12 months has [employer], gas, oil, or water [employer] threatened to shut off services in your [...] a slight decrease in LV systolic function. [facility] 04/2023 Coronary Angiography: Dominance: Right Left Main [...] EDT Tech [place] [address] Channing Escobedo [place] 10/08/2023 9:30 AM EDT Office [place] [address] MD [facility] [address] VASCULAR SURGERY [place], [place] [phone] 10/21/2023 10:30 AM EDT Appointment [place] [address] [place] [address] 10/21/2023 11:30 AM EDT Appointment [place] [address] [place] [address] 10/21/2023 12:30 PM EDT Appointment [place] [address] [place] [address] 10/21/2023 1:30 PM EDT Appointment [place] [address] Mary Reyes [facility] [place] [address] 10/21/2023 2:30 PM EDT Appointment Nuclear Medicine at [place] [phone] Mary Reyes [employer] [facility] [place] [address] 10/26/2023 4:00 PM EDT Office Visit Cardiology at [address] [address] Jaspreet Kinsey MD [facility] [place] [address] 10/28/2023 9:00 AM EDT Office [place] [address] 10/29/2023 10:00 AM EDT Clinical [place] [address] 10/29/2023 10:15 AM EDT Procedure [place] [address] 11/01/2023 5:00 PM EDT Office [place] [phone] Selene Browning, PhD [facility] [place] [address] 11/22/2023 4:40 PM EDT Office Visit Cardiology at [address] [phone] Porsha Mcdaniels MD [facility] [place] [address] 12/13/2023 10:00 AM EDT Clinical [place] [address] Lucero Romero, [facility] [place] [address] documented as of this encounter Visit Diagnoses Not on filedocumented in this encounter Care Teams Entertainment Usher Relationship Specialty Start Date End Date Polo Pearce PA [facility] [address] [place] [address] PCP - General Internal Medicine 06/09/21 documented as of this encounter
--- OUTSIDE RECORDS SUMMARY | 2023-10-02 22:39 | XMS_ITS | Encounter Summary ---
[place] [address] Care Team Providers Care News Camera Person Name Role Phone Polo Pearce Primary Care Provider [phone] Reason for Referral * Diagnostic Test (Routine) - New Request Specialty Diagnoses / Procedures Referred By Jayant harris Referred To Contact Diagnoses Mesenteric ischemia Procedures Duplex Study Visceral Arteries, Comp Judith Butler APRN [facility] [address] [facility] V[facility] Lab [address] [place] [phone] Referral ID Status Reason Start Date Expiration Date Visits Requested Visits Authorized [id number] New Request Specialty Service Requested 08/03/2023 08/02/2024 1 1 Encounter Details Date Type Department Care Team (Late st Contact Info) Description 08/03/2023 9:30 AM EDT Office [place] [address] Judith Butler APRN [facility] [place] [address] Mesenteric ischemia Social History Tobacco Use Types Packs/Day Years Used Date Smoking Tobacco: Never Smokeless Tobacco: Never Alcohol Use Standard Drinks/Week Comments Never 0 (1 standard drink = 0.6 oz pur e alcohol) [facility] Utilities Answer Date Recorded In the past [...] as needed. fluticasone propionate (FLONASE) 50 mcg/actuation [place], Suspension 1 spray by Each Nare route [...] Text Report Department: Vascular Surgery Lab Patient: [id number] (ROHAN, MELINDA) CPT: [id number] Referring Physician: MAMIE LARRY Phone: Indications: S/p SMA stenting (07/01) one month f/u, ? patency Findings: Unilateral Waveform PSV cm/s EDV cm/s Patent Dary Visceral Aorta 71 14 Celiac Artery, Proximal Gonzales-Biphasic 100 22 Celiac Artery, Mid Gonzales-Biphasic 99 19 Celiac Artery, Distal Gonzales-Biphasic 94 18 Sup Mes Artery Proximal Bi-Triphasic [...] within mesenteric artery stents may differ from [place] arteries, with thresholds for diagnosis of significant stenosis likely being somewhat higher in stented arteries than [place].% To date, there is no evidence based consensus of stent velocity criteria. Therefore, the curre nt interpretation is based on [place] artery thresholds. Previous Celiac/Mesenteric Studies: Date SMA PSV EDV Celiac PSV EDV 427 91 057 15 5823/04/29 289 27 116 20 Current Exam 316 [...] Time Provider Department Center 08/17/2023 1:15 PM [facility] NM PET MOBILE MH Nuc Med [facility] Rad 08/25/2023 10:00 AM Mary Reyes APRN [facility] GASTRO [facility] 10/26/2023 4:00 PM Jaspreet Kinsey MD [facility] Cardio [facility] 11/22/2023 4:40 PM Porsha Mcdaniels MD [facility] CARD 4A [facility] Judith Butler APRN Department of Vascular Surgery documented in this encounter Plan of Treatment Upcoming Encounters Date Type Department Care Team (Late st Contact Info) Description 10/08/2023 8:30 AM EDT [place] [address] Channing Escobedo [place] 10/08/2023 9:30 AM EDT Office [place] [phone] MD [facility] [place] [address] 10/21/2023 10:30 AM EDT Appointment [place] [address] Mary Reyes EARTH SCIENCE TECHNICAL OFFICER [facility] [place] [address] 10/21/2023 11:30 AM EDT Appointment [place] [phone] Mary Reyes EARTH SCIENCE TECHNICAL OFFICER [facility] [place] [address] 10/21/2023 12:30 PM EDT Appointment [place] [address] Mary Reyes [facility] [address] 10/21/2023 1:30 PM EDT Appointment [place] [address] Mary Reyes [facility] [address] 10/21/2023 2:30 PM EDT Appointment [place] [address] [place] [address] 10/26/2023 4:00 PM EDT Office Visit Cardiology at [address] [phone] Jaspreet Kinsey MD [facility] [place] [address] 10/28/2023 9:00 AM EDT Office [place] [address] 10/29/2023 10:00 AM EDT Clinical [place] [address] 10/29/2023 10:15 AM EDT Procedure [place] [address] 11/01/2023 5:00 PM EDT Office [place] [address] Selene Browning, PhD [facility] [place] [address] 11/22/2023 4:40 PM EDT Office Visit Cardiology at [address] [phone] Porsha Mcdaniels MD [facility] [place] [address] 12/13/2023 10:00 AM EDT Clinical [place] [phone] [facility] [place] [address] documented as of this encounter Visit Diagnoses Diagnosis Mesenteric ischemia Unspecified vascular insufficiency of intestine documented in this encounter Care Teams News Camera Person Relationship Specialty Start Date End Date Polo Pearce PA S[address] [place] [address] PCP - General Internal Medicine 06/09/21 documented as of this encounter
--- OUTSIDE RECORDS SUMMARY | 2023-10-02 22:39 | XMS_ITS | Encounter Summary ---
[place] [address] Care Team Providers Care Assistant Director Of Security Name Role Phone Polo Pearce Primary Care Provider [phone] Encounter Details Date Type Department Care Team (Late st Contact Info) Description 08/03/2023 8:30 AM EDT Tech [place] [address] Eladio Boyer Mesenteric ischemia Social History Tobacco Use Types Packs/Day Years Used Date Smoking Tobacco: Never Smokeless Tobacco: Never Alcohol Use Standard Drinks/Week Comments Never 0 (1 standard drink = 0.6 oz pur e alcohol) [facility] Utilities Answer Date Recorded In the past 12 months has e centrose, gas, oil, or water [employer] threatened to shut off services in your [...] AM EDT Tech [place] [phone] [place] Escob[place] 10/08/2023 9:30 AM EDT Office [place] [phone] MD [facility] [place] [address] 10/21/2023 10:30 AM EDT Appointment [place] [phone] Mary Reyes APRN [facility] [place] [address] 10/21/2023 11:30 AM EDT Appointment [place] [phone] Mary Reyes APRN [facility] [place] [address] 10/21/2023 12:30 PM EDT Appointment [place] [address] Mary Reyes [facility] [address] 10/21/2023 1:30 PM EDT Appointment [place] [address] Mary Reyes [place] [address] 10/21/2023 2:30 PM EDT Appointment [place] [address] [place] [address] 10/26/2023 4:00 PM EDT Office Visit Cardiology at [address] [phone] Jaspreet Kinsey MD [facility] [place] [address] 10/28/2023 9:00 AM EDT Office [place] [address] 10/29/2023 10:00 AM EDT Clinical [place] [address] 10/29/2023 10:15 AM EDT Procedure [place] [address] 11/01/2023 5:00 PM EDT Office [place] [address] Selene Browning, PhD [facility] [place] [address] 11/22/2023 4:40 PM EDT Office Visit Cardiology at [address] [phone] Porsha Mcdaniels MD [facility] CARDIOLOGY [place], [place] [address] 12/13/2023 10:00 AM EDT Clinical [place] [address] Lucero Romero, RD [facility] [place] [address] documented as of this encounter Procedures Procedure Name Priority Date/Time Associated Diagnosis Comments MESENTERIC COMPLETE Routine 08/03/2023 8 :36 AM EDT Mesenteric ischemia documented in this encounter Results * Duplex Study Visceral Arteries, Comp (08/03/2023 8:36 AM EDT) VB Text Report Department: Vascular Surgery Lab Patient: [id number] (LOIDA ROQUE) CPT: [id number] Referring Physician: MAMIE MARX ?? Phone: Indications: S/p SMA stenting (07/01) one month f/u, ? patency Findings: Unilateral ? Waveform ? PSV cm/s ??EDV cm/s ??Patent ?? Dary Visceral Aorta ? 71 ?14 ? Celiac Artery, Proximal ??[place]-Biphasic ? 100 ?22 ? Celiac Artery, Mid ? [place]-Biphasic ?99 ?19 ? Celiac Artery, Distal ?[place]-Biphasic ?94 ?18 ? Sup Mes Artery Proximal [...] within mesenteric artery stents may differ from [place] arteries, with thresholds for diagnosis of significant stenosis likely being somewhat higher in stented arteries than [place].% To date, there is no evidence based consensus of stent velocity criteria. Therefore, the current interpretation is based on [place] artery thresholds. Previous Celiac/Mesenteric Studies: Date ? [...] intestine documented in this encounter Care Teams Assistant Director Of Security Relationship Specialty Start Date End Date Polo Pearce PA [address] [place] [address] PCP - General Internal Medicine 06/09/21 documented as of this encounter
--- OUTSIDE RECORDS SUMMARY | 2023-10-02 22:39 | XMS_ITS | Encounter Summary ---
Author Organization [facility] [place] [address] Care Team Providers Care Medical Appointment Clerk Name Role Phone Polo Pearce Primary Care Provider [phone] Reason for Referral * Diagnostic Test (Routine) - Closed Specialty Diagnoses / Procedures Referred By Contac t Referred To Contact Radiology Diagnoses Chest pain, unspecified type Procedures NM PET CT Cardiac Pharmacologic Stress CT Component Porsha Mcdaniels MD [facility] [place] [address] [place] [address] Referral ID Status Reason Start Date Expiration Date V isits Requested Visits Authorized [id number] Closed Specialty Service Requested 08/03/2023 10/01/2023 1 1 * Diagnostic Test (Routine) - Closed Specialty Diagnoses / Procedures Referred By Contac t Referred To Contact Radiology Diagnoses Chest pain, unspecified type Procedures NM PET CT Cardiac Pharmacologic Stress and Rest Porsha Mcdaniels MD [facility] [place] [address] [place] [address] Referral ID Status Reason Start Date Expiration Date V isits Requested Visits Authorized [id number] Closed Specialty Service Requested 08/03/2023 10/01/2023 1 1 * Diagnostic Test (Routine) - New Request Specialty Diagnoses / Procedures Referred By Contac t Referred To Contact Cardiology Diagnoses Chest pain, unspecified type Procedures Nuclear Pharmacologic Stress Cardiology (PET CT Mobile) Porsha Mcdaniels MD [facility] [place] [address] [facility] [place] [address] Referral ID Status Reason Start Date Expiration Date Visits Requested Visits Authorized [id number] New Request Specialty Service Requested 07/29/2023 07/28/2024 1 1 Reason for Visit * Consultation (Routine) - Closed Specialty Diagnoses / Procedures Referred By Contac t Referred To Contact Cardiology Diagnoses Heart failure with preserved ejection fraction, unspecified HF chronicity [place]. thorough evaluation performed to date. Jaspreet Kinsey MD [facility] [place] [address] Porsha Mcdaniels MD [facility] [place] [address] Referral ID Status Reason Start Date Expiration Date V isits Requested Visits Authorized [id number] Closed Consult, Test & Treat 06/09/2023 06/08/2024 1 1 Encounter Details Date Type Department Care Team (Late st Contact Info) Description 07/29/2023 8:00 AM EDT Office Visit Cardiology at [address] [address] Porsha Mcdaniels MD [facility] [place] [address] Chest pain, unspecified type Social History Tobacco [...] note were not included. [facility] [place] [address] Referring Provider: Jaspreet Kinsey MD [facility] [place] [address] Reason for Consultation / Chief Complaint: [place] [...] [place]. She follows with Dr. Kinsey in [place]. She underwent CCTA 09/27 that showed mild disease in her LAD. She also had a cardiac cath in 2019 with normal cors. 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 Moves all extremities without limitation. [...] 1,953* Endocrine: Recent Labs 06/15/23 0428 04/17/23 0333 02/08/23 2208 TSH 2.98 5.93* 4.00 Lipid Panel [...] Porsha Mcdaniels MD Section of Interventional Cardiology [facility] Care Managersuede brusher [facility] 07/29/2023 documented in this encounter Plan of Treatment Upcoming Encounters Date Type Department Care Team (Late st Contact Info) Description 10/08/2023 8:30 AM EDT Tech Visit [place] [address] [place] 10/08/2023 9:30 AM EDT Office Visit [place] [address] MD [facility] [place] [address] 10/21/2023 10:30 AM EDT Appointment [place] [address] Mary Reyes APRN [place] [address] 10/21/2023 11:30 AM EDT Appointment Nuclear Medicine at [place] [phone] Mary Re[place] [address] 10/21/2023 12:30 PM EDT Appointment [place] [address] [place] [address] 10/21/2023 1:30 PM EDT Appointment [place] [address] [place] [address] 10/21/2023 2:30 PM EDT Appointment [place] [address] [place] [address] 10/26/2023 4:00 PM EDT Office Visit Cardiology at [address] [address] Jaspreet Kinsey MD [facility] [place] [address] 10/28/2023 9:00 AM EDT Office [place] [address] 10/29/2023 10:00 AM EDT Clinical [place] [address] 10/29/2023 10:15 AM EDT Procedure [place] [address] 11/01/2023 5:00 PM EDT Office Visit [place] [address] Selene Browning, PhD [facility] [place] [address] 11/22/2023 4:40 PM EDT Office Visit Cardiology at [address] [phone] Porsha Mcdaniels MD [facility] [place] [address] 12/13/2023 10:00 AM EDT Clinical Support [place] [address] Lucero Romero, [facility] [place] [place] [address] documented as of this encounter Procedures Procedure Name Priority Date/Time Associated Diagnosis Comments EKG 12-LEAD Routine 07/29/2023 8:47 AM EDT Chest pain, unspecified type documented in this encounter Results * NM PET CT Cardiac Pharmacologic Stress CT Component (08/17/2023 2:38 PM EDT) [employer] WORKSTATION ID [id number] [facility] Anatomical Region Laterality Modality Positron Emissio n Tomography (PET) Impressions 08/18/2023 2:49 PM EDT Moderate-sized scar in the apical septum and anterior wall. LVEF fails to augment appropriately with vasodilator stress. Globally reduced coronary flow reserve which could be consistent with microvascular dysfunction. I have personally reviewed the image(s) and the resident's interpretation and agree with the findings, Caly Stanton MD at 08/18/2023 2:49 PM Thank you for letting us participate in the care of this patient. ??If you are a health care provider and have any questions regarding this report, please contact the number below. ??For patients who have questions please contact the health care transitions manager that requested 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 ? Narrative [...] Coronary calcifications. Bilateral ground glass opacities are [id number] Procedure Note Clay Stanton MD - 08/18/2023 EXAMINATION: NM PET CT CARDIAC PHARMACOLOGIC STRESS AND REST, AR PET CTCARDIAC PHARMACOLOGIC STRESS CT COMPONENT CLINICAL [...] Coronary calcifications. Bilateral ground glass opacities are [id number] IMPRESSION Moderate-sized scar in the apical septum [...] who have questions please contactthe health care transitions manager that requested 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 Porsha Mcfarlane MD IM PET ORDERABLES * NM PET CT Cardiac Pharmacologic Stress and Rest (08/17/2023 2:38 PM EDT) WORKSTATION ID [id number] RAD Anatomical Region Laterality Modality Positron Emissio [...] have questions please contact the health care transitions manager that requested 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 ? Narrative [...] Coronary calcifications. Bilateral ground glass opacities are [id number] Procedure Note Clay Stanton MD - 08/18/2023 EXAMINATION: AR PET CT CARDIAC PHARMACOLOGIC STRESS AND REST, AR PET CTCARDIAC PHARMACOLOGIC STRESS CT COMPONENT CLINICAL [...] Coronary calcifications. Bilateral ground glass opacities are [id number] IMPRESSION Moderate-sized scar in the apical septum [...] who have questions please contactthe health care transitions manager that requested 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 Porsha Mcfarlane [...] (Bezet) 418 ms MUSE SYSTEM Calculated P Talala 6 degrees MUSE SYSTEM Calculated R Talala 34 degrees MUSE SYSTEM Calculated T Talala -73 degrees MUSE SYSTEM INTERPRETATION Sinus bradycardia with Premature atrial complexes Poor R wave progression Possible Lateral infarct , age undetermined Abnormal ECG When compared with ECG of 26-JUL-2023 15:57, Nonspecific T wave abnormality now evident in Inferior leads T wave inversion now evident in Anterolateral leads Confirmed by MD YOO SALVATORE ([id number]) on 07/29/2023 1:08:23 PM MUSE SYSTEM 07/29/2023 8:47 AM EDT 07/29/2023 1:08 PM EDT Porsha Mcfarlane MD ECG ORDERABLES MUSE SYSTEM documented in this encounter Visit Diagnoses Diagnosis Chest pain, unspecified type Chest pain, unspecified type documented in this encounter Care Teams Medical Appointment Clerk Relationship Specialty Start Date End Date Polo Pearce PA Sb [address] [place] [address] PCP - General Internal Medicine 06/09/21 documented as of this encounter
--- OUTSIDE RECORDS SUMMARY | 2023-10-02 22:39 | XMS_ITS | Encounter Summary ---
Author Organization [facility] Address [facility] [place] [address] Care Team Providers Care Supervisor Metal Hanging Name Role Phone Polo Pearce Primary Care Provider [phone] Encounter Details Date Type Department Care Team [...] in a half-way (including now)? No 06/15/2023 IPV Inpatient Questions [...] Tech [place] [address] [place] 10/08/2023 9:30 AM EDT Office [place] [address] MD [facility] [place] [address] 10/21/2023 10:30 AM EDT Appointment [place] [address] Mary Reyes ADMINISTRATIVE ACCOUNTANT [facility] [place] [address] 10/21/2023 11:30 AM EDT Appointment [place] [address] Mary Reyes APRN [facility] [place] [address] 10/21/2023 12:30 PM EDT Appointment [place] [address] Mary Reyes, [place] [address] 10/21/2023 1:30 PM EDT Appointment [place] [address] Mary Reyes ADMINISTRATIVE [place] [address] 10/21/2023 2:30 PM EDT Appointment [place] [address] [place] [address] 10/26/2023 4:00 PM EDT Office Visit Cardiology at [address] [phone] Jaspreet Kinsey MD [facility] [place] [address] 10/28/2023 9:00 AM EDT Office [place] [address] 10/29/2023 10:00 AM EDT Clinical [place] [address] 10/29/2023 10:15 AM EDT Procedure [place] [address] 11/01/2023 5:00 PM EDT Office [place] [address] Selene Browning, PhD [facility] [place] [address] 11/22/2023 4:40 PM EDT Office Visit Cardiology at [address] [address] Porsha Mcdaniels MD [facility] [place] [address] 12/13/2023 10:00 AM EDT Clinical [place] [address] [facility] [place] [address] documented as of this encounter Visit Diagnoses Not on filedocumented in this encounter Care Teams Supervisor Metal Hanging Relationship Specialty Start Date End Date Polo Pearce PA Sb MOTT [address] [place] [address] PCP - General Internal Medicine 06/09/21 documented as of this encounter
--- OUTSIDE RECORDS SUMMARY | 2023-10-02 22:39 | XMS_ITS | Encounter Summary ---
[place] [address] Care Team Providers Care Crop Quantitative Geneticist Name Role Phone Polo Pearce Primary Care Provider [phone] Reason for Visit * Auth/Cert (Routine) Specialty Diagnoses / Procedures Referred By Jayant harris Referred To Contact Diagnoses NSTEMI (non-ST elevated myocardial infarction) NSTEMI Procedures [place] [address] [facility] Referral ID Status Reason Start Date Expiration Date Visits Re quested Visits Authorized [id number] 1 1 Encounter Details Date Type Department Care Team (Late st Contact Info) Description 08/25/2023 12:55 PM EDT Laboratory Appointment Lab [address] [place] [address] Social History Tobacco Use Types Packs/Day Years Used Date Smoking Tobacco: Never Smokeless Tobacco: Never Alcohol Use Standard Drinks/Week Comments Never 0 (1 standard drink = 0.6 oz pur e alcohol) [facility] Utilities Answer Date Recorded In [...] in a halfway (including now)? No 06/15/2023 IPV Inpatient Questions [...] AM EDT Tech Visit [place] [address] Channing Escobedo [place] 10/08/2023 9:30 AM EDT Office [place] [phone] MD [facility] [place] [address] 10/21/2023 10:30 AM EDT Appointment [place] [address] Mary Reyes [facility] [address] 10/21/2023 11:30 AM EDT Appointment Nuclear Medicine at [place] [phone] Mary Reyes [facility] [place] [address] 10/21/2023 12:30 PM EDT Appointment Nuclear Medicine at [place] [phone] Mary Reyes [facility] [place] [address] 10/21/2023 1:30 PM EDT Appointment [place] [address] Mary Reyes [facility] [place] [address] 10/21/2023 2:30 PM EDT Appointment [place] [address] Mary Reyes [facility] [place] [address] 10/26/2023 4:00 PM EDT Office Visit Cardiology at [address] [address] Jaspreet Kinsey MD [facility] [place] [address] 10/28/2023 9:00 AM EDT Office Visit [place] [address] 10/29/2023 10:00 AM EDT Clinical Support [place] [address] 10/29/2023 10:15 AM EDT Procedure visit G[place] [address] 11/01/2023 5:00 PM EDT Office Visit Gastroenterology at [place] [phone] Selene Browning, PhD [facility] [place] [address] 11/22/2023 4:40 PM EDT Office Visit Cardiology at [address] [address] Porsha Mcdaniels MD [facility] [place] [address] 12/13/2023 10:00 AM EDT Clinical [place] [address] Lucero Romero, RD [facility] [place] [address] documented as of this encounter Visit Diagnoses Not on filedocumented in this encounter Care Teams Crop Quantitative Geneticist Relationship Specialty Start Date End Date Polo Pearce PA Sb MOTT [address] [place] [id number] PCP - General Internal Medicine 06/09/21 documented as of this encounter
--- OUTSIDE RECORDS SUMMARY | 2023-10-02 22:39 | XMS_ITS | Encounter Summary ---
Author Organization [facility] Address [facility] [place] [address] Care Team Providers Care Hot Room Attendant Name Role Phone Polo Pearce Primary Care Provider [phone] Encounter Details Date Type Department Care Team (Latest Contact Info) Description 07/29/2023 Travel Social History Tobacco Use Types Packs/Day Years Used Date Smoking Tobacco: Never Smokeless Tobacco: Never Alcohol Use Standard Drinks/Week Comments Never 0 (1 standard drink = 0.6 oz pur e alcohol) [facility] Utilities Answer Date Recorded In the [...] in a correction (including now)? No 06/15/2023 IPV Inpatient Questions [...] AM EDT Tech Visit [place] [address] Channing Escobedo [place] 10/08/2023 9:30 AM EDT Office Visit [place] [phone] MD [facility] [place] [address] 10/21/2023 10:30 AM EDT Appointment [place] [address] Mary Reyes APPLICATION CONSULTANT [facility] [place] [address] 10/21/2023 11:30 AM EDT Appointment [place] [address] Mary Reyes APRN [facility] [place] [address] 10/21/2023 12:30 PM EDT Appointment [place] [address] Mary Reyes, [place] [address] 10/21/2023 1:30 PM EDT Appointment [place] [address] Mary Re[place] [address] 10/21/2023 2:30 PM EDT Appointment [place] [address] [place] [address] 10/26/2023 4:00 PM EDT Office Visit Cardiology at [address] [phone] Jaspreet Kinsey MD [facility] [place] [address] 10/28/2023 9:00 AM EDT Office Visit Gastroenterology [place] [address] 10/29/2023 10:00 AM EDT Clinical Support Gastroenterology [place] [address] 10/29/2023 10:15 AM EDT Procedure visit Gastro[place]ology [place] [address] 11/01/2023 5:00 PM EDT Office Visit [place] [address] Selene Browning, PhD [facility] [place] [address] 11/22/2023 4:40 PM EDT Office Visit Cardiology at [address] [phone] Porsha Mcdaniels MD [facility] [place] [address] 12/13/2023 10:00 AM EDT Clinical Support [place] [address] [facility] [place] [address] documented as of this encounter Visit Diagnoses Not on filedocumented in this encounter Care Teams Hot Room Attendant Relationship Specialty Start Date End Date Polo Pearce PA Sb MOTT [address] [place] [address] PCP - General Internal Medicine 06/09/21 documented as of this encounter
--- OUTSIDE RECORDS SUMMARY | 2023-10-02 22:39 | XMS_ITS | Encounter Summary ---
Author Organization [facility] [place] [address] Care Team Providers Care Tip Cementer Name Role Phone Polo Pearce Primary Care Provider [phone] Reason for Referral * Diagnostic Test (Routine) - New Request Specialty Diagnoses / Procedures Referred By Contjulita t Referred To Contact Cardiology Diagnoses Chest pain, unspecified type Procedures Nuclear Pharmacologic Stress Cardiology (PET CT Mobile) Porsha Mcdaniels MD [facility] [place] [address] [facility] [place] [address] Referral ID Status Reason Start Date Expiration Date Visits Requested Visits Authorized [id number] New Request Specialty Service Requested 07/29/2023 07/28/2024 1 1 Reason for Visit * Diagnostic Test (Routine) - New Request Specialty Diagnoses / Procedures Referred By Contac t Referred To Contact Cardiology Diagnoses Chest pain, unspecified type Procedures Nuclear Pharmacologic Stress Cardiology (PET CT Mobile) Porsha Mcdaniels MD [facility] [place] [address] [facility] [place] [address] Referral ID Status Reason Start Date Expiration Date Visits Requested Visits Authorized [id number] New Request Specialty Service Requested 07/29/2023 07/28/2024 1 1 Encounter Details Date Type Department Care Team (Latest Contact Info) Description 08/17/2023 11:53 AM EDT - 08/17/2023 11:59 PM EDT Hospital Encounter Non-Invasive Cardiology [facility] [place] [address] Porsha Mcdaniels MD [facility] [place] [address] Chest pain, unspecified type Discharge Disposition: Home Social History Tobacco Use Types Packs/Day Years Used Date Smoking Tobacco: Never Smokeless Tobacco: Never Alcohol Use Standard Drinks/Week Comments Never 0 (1 standard drink = 0.6 oz pur e alcohol) [facility] Utilities Answer Date Recorded In the past 12 months has th e [employer], gas, oil, or water [employer] threatened to shut off services in your [...] as needed. fluticasone propionate (FLONASE) 50 mcg/actuation [place], Suspension 1 spray by Each Nare route [...] AM EDT Tech [place] [address] Channing Escobedo [place] 10/08/2023 9:30 AM EDT Office Visit [place] [address] MD [facility] [place] [address] 10/21/2023 10:30 AM EDT Appointment Nuclear Medicine at [place] [phone] Mary Reyes [facility] [place] [address] 10/21/2023 11:30 AM EDT Appointment Nuclear Medicine at [address] [place] [address] 10/21/2023 12:30 PM EDT Appointment [place] [address] Mary Reyes [facility] [place] [address] 10/21/2023 1:30 PM EDT Appointment [place] [address] Mary Reyes [facility] [place] [address] 10/21/2023 2:30 PM EDT Appointment [place] [address] Mary Reyes [facility] [place] [address] 10/26/2023 4:00 PM EDT Office Visit Cardiology at [address] [address] Jaspreet Kinsey MD [facility] [place] [address] 10/28/2023 9:00 AM EDT Office [place] [address] 10/29/2023 10:00 AM EDT Clinical [place] [address] 10/29/2023 10:15 AM EDT Procedure [place] [address] 11/01/2023 5:00 PM EDT Office Visit [place] [phone] Selene Browning, PhD [facility] [place] [address] 11/22/2023 4:40 PM EDT Office Visit Cardiology at [address] [phone] Porsha Mcdaniels MD [facility] [place] [address] 12/13/2023 10:00 AM EDT Clinical Support [place] [address] [facility] [place] [address] documented as of this encounter Procedures Procedure [...] type documented in this encounter Care Teams Tip Cementer Relationship Specialty Start Date End Date Polo Pearce PA [address] [facility] [address] [place] [address] PCP - General Internal Medicine 06/09/21 documented as of this encounter
--- OUTSIDE RECORDS SUMMARY | 2023-10-02 22:41 | XMS_ITS | Encounter Summary ---
Author Organization [facility] [place] [address] Care Team Providers Care Financial Planning Advisor Name Role Phone Polo Pearce Primary Care Provider [phone] Reason for Referral * Consultation (Routine) - Duplicate Referral Specialty Diagnoses / Procedures Referred By Jayant harris Referred To Contact Gastroenterology Diagnoses Mesenteric artery stenosis Terrence Keating MD [facility] [place] [address] [facility] [address] [place] [address] Referral ID Status Reason Start Date Expiration Date Visits Requested Visits Authorized [id number] Duplicate Referral Consult, Test & Treat 07/09/2023 07/08/2024 1 1 * Home Health Care (Routine) - Authorized Specialty Diagnoses / Procedures Referred By Contjulita t Referred To Contact Diagnoses Paroxysmal atrial fibrillation Chest pain, unspecified type Heart failure with preserved ejection fraction, unspecified HF chronicity Terrence Keating MD [facility] [place] [address] Home Health & [address] [place] [address] Referral ID Status Reason Start Date Expiration Date Visits Requested Visits Authorized [id number] Authorized Consult, Test & Treat 07/09/2023 01/05/2024 999 999 Reason for Visit * Auth/Cert (Routine) Specialty Diagnoses / Procedures Referred By Contac t Referred To Contact Diagnoses NSTEMI (non-ST elevated myocardial infarction) NSTEMI Procedures ER IPI Terrence Keating MD [facility] [place] [address] [facility] Referral ID Status Reason Start Date Expiration Date Visits Re quested Visits Authorized [id number] 1 1 Encounter Details Date Type Department Care Team (Latest Contact Info) Description 06/14/2023 11:01 PM EDT - 07/09/2023 4:44 PM EDT Hospital Encounter Heart and Vascular Unit Level 4 [place] [address] Jaspreet Kinsey MD [facility] [place] [address] Lino Calles MD [facility] [place] [address] Eufemia Copeland MD [facility] [place] [address] Ailyn Irvin MD [facility] [place] [address] Terrence Keating MD [facility] [place] [address] Paroxysmal atrial fibrillation; Chest pain, unspecified type; [...] in a detention (including now)? No 06/15/2023 DH IPV Inpatient [...] Loida Roque Patient Age: 53 y.o. Language: Honduran Race: White Ethnicity: Not nor Admit date: 06/14/2023 Discharge date and time: 07/09/2023 3:31 PM Attending Physician: Terrence Keating MD Discharge Physician: Terrence Keatnig MD Follow-up Recommendations for Providers: Inpatient Provider Contact Information: For questions regarding this document or issues relating to this hospitalization on the Medical Service, please contact your inpatient physician through the [facility] Machine Operations Supervisor . Issues afterhours and on weekends will [...] have questions please contact the health care provider that requested 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 Abdomen & Pelvis w Contrast (Exam End: [...] have questions please contact the health care provider that requested 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 Chest One [...] have questions please contact the health care provider that requested 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 Abdomen Limited (Exam End: 06/28/2023 12:22 PM) Result Value WORKSTATION ID [id number] Narrative Abdominal (Signed Final 06/28/2023 02:08 pm) PATIENT INFO: ID #: [id number] : [birth year] (53 yrs)(F) Name: LOIDA Visit Date: 06/28/2023 12:20 pm ROHAN PERFORMED BY: Attending: Sigrid Owens MD Resident: Rafaela Huddleston MD Performed By: Deena Cabrera RDMS Referred By: AILYN IRVIN Location: [facility] SERVICE(S) PROVIDED: UABDLIM - Abdominal Limited Survey Single [id number] Organ or Quadrant - [id number] INDICATIONS: RUQ pain, R/o Gall bladder colic, [...] who have questions, please contact the health care provider that requested 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 Sigrid Owens, [facility] Health Assessment And Treatment Teacher Electronically Signed Final Report 06/28/2023 02:08 pm [...] anesthetic: 10 cc 1% lidocaine Heparin: Yes 71582 Units Protamine: No mg Antibiotics: Ancef Fluoro [...] We exchanged the sheath for a 7 Bruneian tourist information assistant steerable sheath over a stiff wire. A Glidewire and Kumpe catheter were used to selectively cannulate the superior mesenteric artery. Direct angiography of the superior mesenteric artery was performed, confirming the results of the nonselective aortography performed. The lesion was predilated with a 4 mm x 40 mm Salineno balloon, and then a 6 mm X [...] 07/03/2023 3:18 PM) Result Value WORKSTATION ID [id number] Narrative EXAMINATION: XR CHEST ONE VIEW CLINICAL [...] have questions please contact the health care provider that requested 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 Echocardiogram from [...] pain. The patient was recently admitted at [facility] from 04/16/23 to 04/19/2023 as a transfer from [facility] due to exertional chest pressure and breathlessness. [...] etiology, patient was accepted for transfer to [facility]. Brief Summary: Loida Roque is a 53 [...] with positive cardiac markers. Patient transferred to [facility] for further work-up and evaluation. On arrival, [...] Administered Date(s) Administered Moderna Covid-19 Monovalent 12Yr+ (Egg Buyer 100mcg) 03/06/2020, 04/03/2020 Discharge Medications: Your Medications [...] weight gain + increasing shortness of breath. [id number] minutes prior to a dose of torsemide). [...] appointments: During 8am-5pm Wednesday through Wednesday call [phone] to speak with a nurse in the cardiology clinic All other times call [phone] and ask to speak to the parachute packer automobile relocation engineer. Return to work: One week Driving: No driving for 48 hours after catheterization. Follow up Appointments: PCP JOCY Franco [phone] 11:30am on July 19. Cardiology office will call you regarding your appointment with Dr. Kinsey. General Instructions None Future Appointments and Orders Future Appointments and Orders Future Appointments Provider Department Dept Phone 07/26/2023 3:20 PM Jaspreet Kinsey MD Cardiology at [place] Arrive at: [facility] [address] [phone] 07/29/2023 8:00 AM Porsha Mcdaniels MD Cardiology at [facility] Arrive at: [facility] [address] [phone] 08/03/2023 8:30 AM Eladio Boyer Vascular Lab at [facility] Arrive at: [facility] [address] [phone] 08/03/2023 9:30 AM Judith Butler APRN Vascular Surgery at [facility] Arrive at: [facility] [address] [phone] 09/02/2023 2:40 PM Jaspreet Kinsey MD Cardiology at [place] Arrive at: [facility] [address] [phone] Discharge References/Attachments None Greater than 30 minutes was spent on this discharge including documentation, [id number] time withthe patient, patient education, computerized mill mill recorder, coordination with pharmacy and other patient [...] appointments: During 8am-5pm Wednesday through Wednesday call [phone] to speak with a nurse in the cardiology clinic All other times call [phone] and ask to speak to the parachute packer automobile relocation engineer. Return to work: One week Driving: No driving for 48 hours after catheterization. Follow up Appointments: PCP JOCY Franco [phone] 11:30am on July 19. Cardiology office will [...] as needed. fluticasone propionate (FLONASE) 50 mcg/actuation [place], Suspension 1 spray by Each Nare route [...] 4pm, per the team. Please refer to: [facility] [address] [place] [address] PHONE: [phone] FAX: [phone] *For RN RICARDO: 07/09/23 Nani Mendoza MSN-Ed, RN ACM Cardiac Research Nurse and Neuro/Neurocrit/ENT C.O.D. [place]. * Mary Castaneda RCP - 07/09/2023 4:37 [...] 1:00 PM EDT [facility] H[facility]PITALIST 2 - [facility] DAILY PROGRESS NOTE Page [phone] to reach a provider 28/09 Admit Date: [...] with positive cardiac markers. Patient transferred to [facility] for further work-up and evaluation. Presented with [...] prn. Diet: Daily Healthy Menu Choices/Cardiac diet ([facility]-Diet) DVT Prophylaxis: DOAC heparin gtt. 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 Patient transferred to [facility] for further work-up and evaluation. Presented with [...] Score: 24 PT: OT: PCP JOCY Franco [phone] Terrence Keating MD 07/07/2023 * Terrence Keating MD - 07/06/2023 11:00 AM EDT [facility]ITAL[facility] 2 - [facility] DAILY PROGRESS NOTE Page [phone] to reach a provider 28/09 Admit Date: [...] with positive cardiac markers. Patient transferred to [facility] for further work-up and evaluation. Presented with [...] hospital Diet: Daily Healthy Menu Choices/Cardiac diet ([facility]-Diet) NPO diet (Give Meds) DVT Prophylaxis: DOAC Code status: Attempt Cardiopulmonary Resuscitation - Inpatient Disposition: Discharge Location: AM-PAC Basic Mobility Raw Score: 24 PT: OT: PCP JOCY Franco [phone] Terrence Keating MD 07/06/2023 * Ana Paula [...] 11:00 AM EDT [facility] 2 - [facility] DAILY PROGRESS NOTE Page [phone] to reach a provider 28/09 Admit Date: [...] with positive cardiac markers. Patient transferred to [facility] for further work-up and evaluation. Presented with [...] hospital Diet: Daily Healthy Menu Choices/Cardiac diet ([facility]-Diet) DVT Prophylaxis: DOAC Code status: Attempt Cardiopulmonary Resuscitation - Inpatient Disposition: Discharge Location: AM-[facility] Basic Mobility Raw Score: 24 PT: OT: PCP JOCY Franco [phone] Terrence Keating MD 07/05/2023 * Lino Calles MD - 07/04/2023 9:09 AM EDT [facility] 2 - [facility] DAILY PROGRESS NOTE Page [phone] to reach a provider 28/09 Admit Date: [...] with positive cardiac markers. Patient transferred to [facility] for further work-up and evaluation. On arrival, [...] migraine Diet: Daily Healthy Menu Choices/Cardiac diet ([facility]-Diet) DVT Prophylaxis: DOAC Code status: Attempt Cardiopulmonary Resuscitation - Inpatient Disposition: Discharge Location: AM-PAC Basic Mobility Raw Score: 24 PT: OT: PCP JOCY Franco [phone] Lino Calles MD 07/04/2023 * Ana Paula [...] 8:59 AM EDT [facility] 2 - [facility] DAILY PROGRESS NOTE Page [phone] to reach a provider 28/09 Admit Date: [...] with positive cardiac markers. Patient transferred to [facility] for further work-up and evaluation. On arrival, [...] PRN Diet: Daily Healthy Menu Choices/Cardiac diet ([facility]-Diet) DVT Prophylaxis: DOAC Code status: Attempt Cardiopulmonary Resuscitation - Inpatient Disposition: Discharge Location: AM-PAC Basic Mobility Raw Score: 24 PT: OT: PCP JOCY Franco [phone] Lino Calles MD 07/03/2023 * Van Muse [...] 9:55 AM EDT [facility] 2 - [facility] DAILY PROGRESS NOTE Page [phone] to reach a provider 28/09 Admit Date: [...] with positive cardiac markers. Patient transferred to [facility] for further work-up and evaluation. On arrival, [...] PRN Diet: Daily Healthy Menu Choices/Cardiac diet ([facility]-Diet) DVT Prophylaxis: DOAC Code status: Attempt Cardiopulmonary Resuscitation - Inpatient Disposition: Discharge Location: AM-PAC Basic Mobility Raw Score: 24 PT: OT: PCP JOCY Franco [phone] Lino Calles MD 07/02/2023 * Jaspreet Griffith [facility] - 07/02/2023 6:35 AM EDT Respiratory Care [...] 7:39 AM EDT [facility] H[facility]PITAL[facility] 2 - [facility] DAILY PROGRESS NOTE Page [phone] to reach a provider 28/09 Admit Date: [...] 92.8 94.4 94.0 Recent Labs 07/01/23 0256 06/30/234 06/29/23 0239 06/28/23 0152 06/27/23 2006 06/27/23 [...] with positive cardiac markers. Patient transferred to [facility] for further work-up and evaluation. On arrival, [...] PRN Diet: Daily Healthy Menu Choices/Cardiac diet ([facility]-Diet) NPO diet (Give Meds) DVT Prophylaxis: DOAC Code status: Attempt Cardiopulmonary Resuscitation - Inpatient Disposition: Discharge Location: AM-PAC Basic Mobility Raw Score: 24 PT: OT: PCP JOCY Franco [phone] Terrence Keating MD 07/01/2023 * Terrence Keating MD - 06/30/2023 8:00 AM EDT [facility] 2 - [facility] DAILY PROGRESS NOTE Page [phone] to reach a provider 28/09 Admit Date: [...] with positive cardiac markers. Patient transferred to [facility] for further work-up and evaluation. On arrival, [...] Score: 24 PT: OT: PCP JOCY Franco [phone] Terrence Keating MD 06/30/2023 * Terrence Keating MD - 06/29/2023 4:29 PM EDT [facility] 2 - [facility] DAILY PROGRESS NOTE Page [phone] to reach a provider 28/09 Admit Date: [...] with positive cardiac markers. Patient transferred to [facility] for further work-up and evaluation. On arrival, [...] Score: 24 PT: OT: PCP JOCY Franco [phone] Terrence Keating MD 06/29/2023 * Jo Ann Sharpe - 06/29/2023 2:54 PM EDT Nutrition Services Note - Low Nutrition Acuity Loida Roque is a 53 y.o. female Reason for intervention: follow up Nutrition Plan: Continue current diet. Encourage good PO intake. Spironolactone noted. Abdominal pain after eating noted. Encouragement and support provided. Pt screened for follow-up visit and residential mortgage underwriter met with Pt at bedside. Pt [...] consulted in the interim. Jo Ann Sharpe Ground Support Equipment Assembler * Mary Castaneda RCP - 06/29/2023 3:55 [...] 1:53 PM EDT [facility] 2 - [facility] DAILY PROGRESS NOTE Page [phone] to reach a provider 28/09 Admit Date: [...] with positive cardiac markers. Patient transferred to [facility] for further work-up and evaluation. On arrival, [...] Score: 24 PT: OT: PCP JOCY Franco [phone] * Ailyn Irvin MD - 06/27/2023 9:40 AM EDT [facility] 2 - [facility] DAILY PROGRESS NOTE Page [phone] to reach a provider 28/09 Admit Date: [...] with positive cardiac markers. Patient transferred to [facility] for further work-up and evaluation. On arrival, [...] Score: 24 PT: OT: PCP JOCY Franco [phone] * Ailyn Irvin MD - 06/26/2023 12:42 PM EDT [facility] 2 - [facility] DAILY PROGRESS NOTE Page [phone] to reach a provider 28/09 Admit Date: [...] with positive cardiac markers. Patient transferred to [facility] for further work-up and evaluation. On arrival, [...] Score: 24 PT: OT: PCP JOCY Franco [phone] * Mitali Manuel [facility] - 06/26/2023 5:43 AM EDT Respiratory Therapy [...] 1:39 PM EDT [facility]IST 2 - [facility] DAILY PROGRESS NOTE Page [phone] to reach a provider 28/09 Admit Date: [...] with positive cardiac markers. Patient transferred to [facility] for further work-up and evaluation. On arrival, [...] Score: 24 PT: OT: PCP JOCY Franco [phone] * Edith Chandler RCP - 06/24/2023 10:40 [...] 4:38 PM EDT [facility] 2 - [facility] DAILY PROGRESS NOTE Page [phone] to reach a provider 28/09 Admit Date: [...] and SVT ablation on 04/01/[address] Dalton, paroxysmal A-fib (diagnosed on 10/20/2022), HFpEF, pulmonary emboli on Eliquis, and restrictive lung disease secondary to obesity who presented to OSH with chest pain. Patient has recently undergone extensive workup for ACS that has been unrevealing. 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 The patient current presentation is different with positive cardiac markers. Patient transferred to [facility] for further work-up and evaluation. On arrival, [...] Score: 24 PT: OT: PCP JOCY Franco [phone] * Aaron Rosado RCP - 06/24/2023 1:55 [...] 1:03 PM EDT [facility] 2 - [facility] DAILY PROGRESS NOTE Page [phone] to reach a provider 28/09 Admit Date: [...] 101.2 kg (223 lb 3.2 oz) 06/18/23 032 101.4 kg (223 lb 9.6 oz) 06/17/23 [...] cranial nerve deficit. Labs: Recent Labs 06/23/2341106/22/2343306/21/2332406/20/2333106/19/23 0322 WBC 8.2 7.5 9.3 10.1* 9.4 HGB 14.3 12.8 14.9 14.2 13.9 HCT 43.1 39.1 44.2 41.5 41.7 PLATELET 233 225 279 253 244 MCV 93.9 96.8* 93.2 90.8 93.1 Recent Labs 06/23/23 0412 06/22/23 0434 06/21/23 0558 06/21/235 06/20/2333106/19/23 1726 NA 137 138 -- 138 137 [...] workup for ACS that has been unrevealing. M[place]YE is suspected as the culprit. The patient current presentation is different with positive cardiac markers. Patient transferred to [facility] for further work-up and evaluation. On arrival, [...] Score: 24 PT: OT: PCP JOCY Franco [phone] * Ciera Valdovinos, ALVA - 06/22/2023 2:38 PM EDT Nutrition Services Note - Low Nutrition Acuity Loida Roque is a 53 y.o. female Reason for intervention: hospital day 9 Nutrition Plan: Cardiac Diet Record % PO intake Monitor weight - diuresis noted Patient screened for hospital length of stay nutrition visit, residential mortgage underwriter met with Lioda at bedside. Loida reports excellent appetite, eating 100% of meals. She notes that she has not skipped any meals inpatient and has no current nutrition related questions. She notes UBW 217-218 lbs and says that current weight is higher than normal for her. Diuresis noted. Active Orders Diet Daily Healthy Menu Choices/Cardiac diet ([facility]-Diet) Frequency: Effective Now Number of Occurrences: Until [...] 1:35 PM EDT [facility] H[facility]PITALIST 2 - [facility] DAILY PROGRESS NOTE Page [phone] to reach a provider 28/09 Admit Date: [...] have questions please contact the health care provider that requested 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 Chest One View (Exam End: 06/22/2023 11:42 AM) Impression No acute pulmonary findings Thank you for letting us participate in the care of this patient. If you are a health care provider and have any questions regarding this report, please contact the number below. For patients who have questions please contact the health care provider that requested your imaging first. Assessment: Loida [...] with positive cardiac markers. Patient transferred to [facility] for further work-up and evaluation. On arrival, [...] above Diet: Daily Healthy Menu Choices/Cardiac diet ([facility]-Diet) DVT Prophlaxis: eliquis Code status: Attempt Cardiopulmonary Resuscitation - Inpatient Disposition: Discharge Planning: AM-PAC Basic Mobility Raw Score: 24 PT: OT: PCP JOCY Franco [phone] * Eufemia Copeland MD - 06/21/2023 11:02 AM EDT [facility] HOSPITALIST 2 - [facility] DAILY PROGRESS NOTE Page [phone] to reach a provider 28/09 Admit Date: [...] with positive cardiac markers. Patient transferred to [facility] for further work-up and evaluation. On arrival, [...] above Diet: Daily Healthy Menu Choices/Cardiac diet ([facility]-Diet) DVT Prophlaxis: eliquis Code status: Attempt Cardiopulmonary Resuscitation - Inpatient Disposition: Discharge Planning: AM-PAC Basic Mobility Raw Score: 24 PT: OT: PCP JOCY Franco [phone] * Eufemia Copeland MD - 06/20/2023 8:06 AM EDT CV HOSPITALIST 2 - [facility] DAILY PROGRESS NOTE Page [phone] to reach a provider 28/09 Admit Date: [...] with positive cardiac markers. Patient transferred to [facility] for further work-up and evaluation. On arrival, [...] above Diet: Daily Healthy Menu Choices/Cardiac diet ([facility]-Diet) DVT Prophlaxis: eliquis Code status: Attempt Cardiopulmonary Resuscitation - Inpatient Disposition: Discharge Planning: AM-PAC Basic Mobility Raw Score: 24 PT: OT: PCP JOCY Franco [phone] * Eufemia Copeland MD - 06/19/2023 10:00 AM EDT CV HOSPITALIST 2 - [facility] DAILY PROGRESS NOTE Page [phone] to reach a provider 28/09 Admit Date: [...] with positive cardiac markers. Patient transferred to [facility] for further work-up and evaluation. On arrival, [...] above Diet: Daily Healthy Menu Choices/Cardiac diet ([facility]-Diet) DVT Prophlaxis: eliquis Code status: Attempt Cardiopulmonary Resuscitation - Inpatient Disposition: Discharge Planning: AM-PAC Basic Mobility Raw Score: 24 PT: OT: PCP JOCY Franco [phone] * Eufemia Copeland MD - 06/18/2023 9:02 AM EDT CV H[facility]PITAL[facility] 2 - [facility] DAILY PROGRESS NOTE Page [phone] to reach a provider 28/09 Admit Date: [...] 0419 06/17/23 1426 06/17/23 0501 06/17/23 0111 06/16/23202706/16/23 0901 06/16/23 0330 06/15/23 2133 06/15/23 1747 [...] with positive cardiac markers. Patient transferred to [facility] for further work-up and evaluation. On arrival, [...] above Diet: Daily Healthy Menu Choices/Cardiac diet ([facility]-Diet) DVT Prophlaxis: eliquis Code status: Attempt Cardiopulmonary Resuscitation - Inpatient Disposition: Discharge Planning: AM-PAC Basic Mobility Raw Score: 24 PT: OT: PCP JOCY Franco [phone] * Eufemia Copeland MD - 06/17/2023 12:02 PM EDT [facility] H[facility]PITALIST 2 - [facility] DAILY PROGRESS NOTE Page [phone] to reach a provider 28/09 Admit Date: [...] with positive cardiac markers. Patient transferred to [facility] for further work-up and evaluation. On arrival, [...] above Diet: Daily Healthy Menu Choices/Cardiac diet ([facility]-D[facility]) DVT Prophlaxis: eliquis Code status: Attempt Cardiopulmonary Resuscitation - Inpatient Disposition: Discharge Planning: AM-PAC Basic Mobility Raw Score: 24 PT: OT: PCP JOCY Franco [phone] * Calista Hernandez RT - 06/17/2023 4:36 [...] 3:25 PM EDT [facility] H[facility]PITALIST 2 - [facility] DAILY PROGRESS NOTE Page [phone] to reach a provider 28/09 Admit Date: [...] with positive cardiac markers. Patient transferred to [facility] for further work-up and evaluation. On arrival, [...] above Diet: Daily Healthy Menu Choices/Cardiac diet ([facility]-Diet) DVT Prophlaxis: eliquis Code status: Attempt Cardiopulmonary Resuscitation - Inpatient Disposition: Discharge Planning: AM-PAC Basic Mobility Raw Score: 24 PT: OT: PCP JOCY Franco [phone] documented in this encounter H&P Notes * [...] pain. The patient was recently admitted at [facility] from 04/16/23 to 04/19/2023 as a transfer from [facility] due to exertional chest pressure and breathlessness. [...] etiology, patient was accepted for transfer to [facility]. 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 fluticasone propionate (FLONASE) 50 mcg/actuation [place], Suspension 1 spray by Each Nare route [...] if hypotensive / cardiogenic shock / inferior MT / sildenafil within past 24 hours) - [...] for discharge to home with family support, [facility] for RN and OP Cardi clinic for f/u. Needs for Transition of Care: Plan for discharge is: Home w/ Services Outpatient Agency/Support Group Needs: None Home Health Services: Registered Nurse Agency Referrals & Follow-up Care: Contact information for follow-up Home Health & Hospice, [facility] [address] [place] [address] Transportation: taxi voucher -Ride confirmed entrance #2 [...] through [facility]) DME Needed at Discharge: none Patient is insured through: Primary Insurance: [employer] [place] [employer] [place] / Plan[place] / Product Type: *No Product type* / Secondary Insurance: N/A Prescription Coverage: Yes This plan was formulated with input from patient, (please identify family/friend involved if applicable) and team. All are in agreement with plan. Nani Mendoza MSN-Ed, RN ACM Cardiac Research Nurse and Neuro/Neurocrit/ENT C.O.D. Biller. * Care Management - Dixie Patterson - 07/09/2023 1:38 PM EDT Transportation for discharge was scheduled and confirmed through [employer]. [employer] will have a regional otr company driver here at entrance #2 @4pm to [...] Visceral Aorta 80 16 Celiac Artery, Proximal [place] 119 26 Celiac Artery, Mid [place] 115 21 Celiac Artery, Distal No Vis Sup Mes Artery Proximal Biphasic 427 91 Sup Mes Artery Middle [place] 100 17 Sup Mes Artery Distal [place] 64 15 Hepatic Artery No Vis Splenic [...] sign off at this time, please page [phone] with any questions or concerns. Discussed with [...] Visceral Aorta 80 16 Celiac Artery, Proximal [place] 119 26 Celiac Artery, Mid [place] 115 21 Celiac Artery, Distal No Vis Sup Mes Artery Proximal [place]ic 427 91 Sup Mes Artery Middle [place] 100 17 Sup Mes Artery Distal [place] 64 15 Hepatic Artery No Vis Splenic [...] duplex Discussed with Dr. Kamara. Please page [phone] with any questions or concerns. 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 At [place], patient should be strict NPO. The plan as outlined above was discussed with Dr. Villa. Recommendations were discussed with primary team. Sis Keenan M.D. Fellow in Gastroenterology and Hepatology Pager #[phone] 07/06/2023 Associated attestation - Lashonda Villa MD [...] Lashonda Villa MD Gastroenterology and hepatology Pager: [phone] * Plan of Care - Olive Hernandez [...] Visceral Aorta 80 16 Celiac Artery, Proximal [place] 119 26 Celiac Artery, Mid [place] 115 21 Celiac Artery, Distal No Vis Sup Mes Artery Proximal [place] 427 91 Sup Mes Artery Middle [place] 100 17 Sup Mes Artery Distal [place] 64 15 Hepatic Artery No Vis Splenic [...] duplex Discussed with Dr. Kamara. Please page [phone] with any questions or concerns. Gauri Vega [...] Visceral Aorta 80 16 Celiac Artery, Proximal [place] 119 26 Celiac Artery, Mid [place] 115 21 Celiac Artery, Distal No Vis Sup Mes Artery Proximal [place] 427 91 Sup Mes Artery Middle [place] 100 17 Sup Mes Artery Distal [place] 64 15 Hepatic Artery No Vis Splenic [...] ASA) Discussed with Dr. Kamara. Please page [phone] with any questions or concerns. Gauri Vega [...] Visceral Aorta 80 16 Celiac Artery, Proximal [place] 119 26 Celiac Artery, Mid [place] 115 21 Celiac Artery, Distal No Vis Sup Mes Artery Proximal [place] 427 91 Sup Mes Artery Middle [place] 100 17 Sup Mes Artery Distal [place] 64 15 Hepatic Artery No Vis Splenic [...] 07/02/[address] Kamara. Please page [phone] with any questions or concerns. Gauri Vega [...] Visceral Aorta 80 16 Celiac Artery, Proximal [place] 119 26 Celiac Artery, Mid [place] 115 21 Celiac Artery, Distal No Vis Sup Mes Artery Proximal [place] 427 91 Sup Mes Artery Middle [place] 100 17 Sup Mes Artery Distal [place] 64 15 Hepatic Artery No Vis Splenic [...] tonight Discussed with Dr. Kamara. Please page [phone] with any questions or concerns. Gauri Vega MD 07/01/2023 11:44 AM * Plan of Care - Opla Traore RN - 07/01/2023 5:58 AM EDT [...] Visceral Aorta 80 16 Celiac Artery, Proximal [place] 119 26 Celiac Artery, Mid [place] 115 21 Celiac Artery, Distal No Vis Sup Mes Artery Proximal [place] 427 91 Sup Mes Artery Middle [place] 100 17 Sup Mes Artery Distal [place] 64 15 Hepatic Artery No Vis Splenic [...] Inpatient Consultation History of Present Illness: Loida oRque is a 53 y.o. female with non [...] Visceral Aorta 80 16 Celiac Artery, Proximal [place] 119 26 Celiac Artery, Mid [place] 115 21 Celiac Artery, Distal No Vis Sup Mes Artery Proximal [place] 427 91 Sup Mes Artery Middle [place] 100 17 Sup Mes Artery Distal [place] 64 15 Hepatic Artery No Vis Splenic [...] Dominguez PA - 06/28/2023 8:52 AM EDT [facility] [place] of Cardiology Consult Progress Note Reason [...] consultation required. JOCY Langston-C Cardiovascular Medicine Pager [phone] 06/28/2023 Associated attestation - Klarissa Henderson MD [...] Tellez MD - 06/24/2023 2:14 PM EDT [facility] [place] of Cardiology Consult Progress Note Reason [...] if further consultation required. Alejandro Tellez MD Engineering Program Analyst [id number] Associated attestation - Willy Gómez MD [...] other (see comments) (Has CPAP provided through [employer]) DME Needed at Discharge: No Patient is insured through: Primary Insurance: [employer] [place] [employer] [place] / Plan[place] / [...] of Discharge: 06/26/2023 BEA Killian, RN Inpatient Geometry Tutor- Cardiology Office of Care Management Pager #: [phone] * Plan of Care - Alejandro Davenport [...] Appropriate) Goal: Readiness for Transition of Care 06/22/20231842 by Paradise Paz RN Outcome: Ongoing [...] fraction Overview Note: 05/2021: subacute, presented to [facility] with RUQ pain, weight gain, [...] on file 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 fluticasone propionate (FLONASE) 50 mcg/actuation [place], Suspension 1 spray by Each Nare route [...] Lytes Recent Labs 06/22/23 0434 06/21/23 0558 06/21/23 0325 06/20/23 0332 NA 138 -- 138 137 [...] No Patient is insured through: Primary Insurance: [employer] [place] [employer] [place] / [place] / [...] other (see comments) (Has CPAP provided through [employer]) DME Needed at Discharge: No Patient is insured through: Primary [place]: [employer] [place] [employer] [place] / Plan[place] BS [place] / Product Type: *No Product type* / Secondary Insurance: N/A Plan for discharge is: Home w/o Services Outpatient Agency/Support Group Needs: None Agency Referrals: Not Applicable at this time. Transportation: taxi voucher Barriers to discharge: Discharge planning Plan going forward: Pt to ri home with family without services once medically ready. Care Management will continue to follow and assist with discharge planning and coordination of careas indicated. Anticipated Date of Discharge: 06/19/2023 BEA Killian, RN Inpatient Geometry Tutor- Cardiology Office of Care Management Pager #: [phone] * Plan of Care - Olive Hernandez [...] reports of CP or SOB. Expressed pain 10/ d/t migrane, treated with pt's own Nurtec. [...] COVID test: Lab Results Component Value Date [id number] Not Detected 06/13/2021 Past medical History: Past [...] In the past 12 months has the itzat, gas, oil, or water [employer] threatened to shut off services in your [...] other (see comments) (Has CPAP provided through [employer]) [address] [facility] [address] [facility] [facility] [address] Social & Family Supports: All names listed [...] Specific Information: Has a CPAP provided by [place] [facility]/Prescription Coverage: Primary Insurance: [employer] [place] [employer] [place] / Plan[place] GLO [place] / Product Type: *No Product type* / Secondary Insurance: N/A ; Prescription Coverage: Yes Preferred Pharmacy: [facility] [address] [address] [place] Status: Patient is a : No Primary Care Provider confirmed: JOCY Franco [phone] Patient/Caregiver Goals of Treatment: To figure out what is wrong Potential Needs for Transition of Care: other (see comments) ([facility] angycal help) Agency Referrals: Not Applicable Transportation: no concerns Transportation Anticipated: agency ( can not drive , mother does not drive , Son does not have a car) Concerns to be Addressed: discharge planning Assessment: Patient is admitted to [facility] service for Chest pain Plan: May [...] planning. Office of Care Management Float / academic services professional java development manager [email or web address] Pager #[phone] * Consult Note - Jackie Batres MD - 06/15/2023 11:04 AM EDT [facility] Department of Cardiology Initial Consult Note Patient: [...] her case. 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, though unlikely, is possible [...] AM EDT Tech [place] [address] [place] 10/08/2023 9:30 AM EDT Office [place] [phone] MD [facility] DR VASCULAR SURGERY [place], [place] [id number] 10/21/2023 10:30 AM EDT Appointment Nuclear Medicine at [address] [facility] [place] [address] 10/21/2023 11:30 AM EDT Appointment Nuclear Medicine at [address] [facility] [place] [address] 10/21/2023 12:30 PM EDT Appointment [place] [phone] [facility] [place] [address] 10/21/2023 1:30 PM EDT Appointment Nuclear Medicine at [place] [phone] [address]yes [facility] [place] [address] 10/21/2023 2:30 PM EDT Appointment [place] [address] [address] Reyes [facility] [place] [address] 10/26/2023 4:00 PM EDT Office Visit Cardiology at [address] [phone] Jaspreet Kinsey MD [facility] [place] [address] 10/28/2023 9:00 AM EDT Office [place] [address] 10/29/2023 10:00 AM EDT Clinical [place] [address] 10/29/2023 10:15 AM EDT Procedure [place] [address] 11/01/2023 5:00 PM EDT Office [place] [phone] Selene Browning, PhD [facility] DR PSYCHIATRY [place] [address] 11/22/2023 4:40 PM EDT Office Visit Cardiology at [address] [address] Porsha Mcdaniels MD [facility] [place] [address] 12/13/2023 10:00 AM EDT Clinical [place] [address] [facility] [address] [place]UTRITION [place] [address] Scheduled Orders Name Type Priority Associated Diagnoses [...] Routine 07/07/2023 2:25 PM EDT Colonoscopy, Biopsy ([id number]) 07/07/2023 2:10 PM EDT post prandial pain Upper Gi Endoscopy, Biopsy ([id number]) 07/07/2023 2:10 PM EDT post prandial pain [...] Metabolic Panel (non-fasting) (08/25/2023 11:28 AM EDT) [facility] Signature Glucose Lvl 111 65 - 199 mg/dL [facility] Comment:Diabetes: >=200 mg/d L plus symptoms BUN 29(H) 8 - 18 mg/dL [facility] Creatinine 1.41(H) 0.70 - 1.20 mg/dL [facility] Sodium 140 135 - 145 mmol/L [facility] Potassium 3.6 3.5 - 5.0 mmol/L [facility] Comment: Please note: ??Patients with WBC >100,000 may have falsely elevated Potassium levels. ??For accurate Potassium quantification in these patients send serum separator tube (gold top) for subsequent determinations. ??Contact the Clinical Chemistry Laboratory if there are any questions. Chloride 99 98 - 107 mmol/L [facility] CO2 29 22 - 31 mmol/L [facility] Anion Gap 12 5 - 15 mmol/L [facility] Calcium 10.0 8.5 - 10.5 mg/dL [facility] Estimated GFR 44(L) >=60 mL/min/1. 73 m?? [facility] Comment: This patient's estimated [...] In Lab Terrence Keating MD CHEMISTRY ORDERABLES [facility] [place] [address] * Differential, Automated (07/09/2023 3:03 AM EDT) Neutrophils % 51.4 % [facility] Neutr Abs (ANC) 3.43 1.70 - 6.10 x10(3)/[facility] Lymphocytes % 31.4 % [facility] Lymphocytes Abs 2.1 0.9 - 3.2 x10(3)/[facility] Monocytes % 10.1 % [facility] Monocyte Abs 0.7 0.3 - 0.9 x10(3)/[facility] Eosinophils % 6.0 % [facility] Eosinophils Abs 0.4 0.0 - 0.4 x10(3)/[facility] Basophils % 0.8 % [facility] Basophils Abs 0.0 0.0 - 0.1 x10(3)/[facility] Immature Gran % 0.30 % [facility] Comment: Immature granulocytes(IG's)percentage and absolute count will include metamyelocytes, myelocytes, and promyelocytes. Blood smears from CBCs yielding IG's will be scanned manually for concordance. If this scan disagrees with the automated IG or if promyelocytes are noted, a manual differential will be performed. Shonda Gran Abs 0.02 0.00 - 0.04 x10(3)/[facility] Blood 07/09/2023 3:03 AM EDT 07/09/2023 3:14 AM EDT Narrative Resulting Agency Comment Spec In Lab Terrence Keating MD HEMATOLOGY ORDERABLE S [facility] [place] [address] * (ABNORMAL) Hemogram (07/09/2023 3:03 AM EDT) Pathologist [facility] WBC 6.7 4.0 - 9.5 x10(3)/[facility] RBC 3.87(L) 4.00 - 5.21 x10(6)/[facility] Hemoglobin 12.4 11.7 - 15.5 g/dL [facility] Hematocrit 36.8 35.7 - 45.8 % [facility] MCV 95.1(H) 82.6 - 94.4 [facility] MCH 32.0 27.1 - 32.0 pg [facility] MCHC 33.7 31.7 - 35.0 g/dL [facility] Platelets 209 145 - 357 x10(3)/[facility] RDWSD 47.9(H) 37.0 - 46.0 [facility] RDWCV 13.7 11.5 - 14.1 % [facility] MPV 10.5 7.6 - 12.9 [facility] nRBC % Auto 0.0 % [facility] nRBC Abs Auto 0.000 0.000 - 0.000 x10(3)/[facility] Blood 07/09/2023 3:03 AM EDT 07/09/2023 3:14 AM EDT Narrative Resulting Agency Comment Spec In Lab Terrence Keating MD HEMATOLOGY ORDERABLE S [facility] [place] [address] * Heparin (unfractionated) Level (07/09/2023 3:03 AM EDT) Heparin UFH Level 0.52 IU/mL [facility] Comment: Heparin (anti-Xa) levels [...] Lab Ailyn Irvin MD HEMATOLOGY ORDERABLE S [facility] [place] [address] * (ABNORMAL) Basic Metabolic Panel (non-fasting) (07/09/2023 3:03 AM EDT) Glucose Lvl 100 65 - 199 mg/dL [facility] Comment:Diabetes: >=200 mg/d L plus symptoms BUN 12 8 - 18 mg/dL [facility] Creatinine 1.24(H) 0.70 - 1.20 mg/dL [facility] Sodium 138 135 - 145 mmol/L [facility] Potassium 4.2 3.5 - 5.0 mmol/L [facility] Comment: Please note: ??Patients with WBC >100,000 may have falsely elevated Potassium levels. ??For accurate Potassium quantification in these patients send serum separator tube (gold top) for subsequent determinations. ??Contact the Clinical Chemistry Laboratory if there are any questions. Chloride 104 98 - 107 mmol/L [facility] CO2 22 22 - 31 mmol/L [facility] Anion Gap 12 5 - 15 mmol/L [facility] Calcium 9.3 8.5 - 10.5 mg/dL [facility] Estimated GFR 52(L) >=60 mL/min/1. 73 m?? [facility] Comment: This patient's estimated [...] MD CHEMISTRY ORDERABL ES Performing Organization Address [facility] Co de Phone Number [facility] [place] [address] * Phosphorus (07/09/2023 3:03 AM EDT) Phosphorus 4.5 2.5 - 4.5 mg/dL [facility] Blood 07/09/2023 3:03 AM EDT 07/09/2023 3:14 AM EDT Narrative Resulting Agency Comment Spec In Lab Eufemia Copeland MD CHEMISTRY ORDERABL ES Performing Organization Address [facility] Co de Phone Number [facility] [place] [address] * Magnesium (07/09/2023 3:03 AM EDT) Magnesium 0.91 0.69 - 1.07 mmol/L [facility] Blood 07/09/2023 3:03 AM EDT 07/09/2023 3:14 AM EDT Narrative Resulting Agency Comment Spec In Lab Eufemia Copeland MD CHEMISTRY ORDERABL ES Performing Organization Address [facility] Co de Phone Number [facility] [place] [address] * Heparin (unfractionated) Level (07/08/2023 12:02 PM EDT) Heparin UFH Level 0.45 IU/mL [facility] Comment: Heparin (anti-Xa) levels [...] [facility]/ZIP Co de Phone Number [facility] [place] [address] * EKG 12 Lead (07/08/2023 9:58 AM EDT) Ventricular rate 66 BPM MUSE SYSTEM Atrial Rate 66 BPM MUSE SYSTEM P-R Interval 178 ms MUSE SYSTEM QRS Duration 92 ms MUSE SYSTEM Q-T Interval 486 ms MUSE SYSTEM QTC Calculated (Bezet) 509 ms MUSE SYSTEM Calculated P [place] 29 degrees MUSE SYSTEM Calculated R [place] 33 degrees MUSE SYSTEM Calculated T [place] 29 degrees MUSE SYSTEM INTERPRETATION Normal sinus rhythm Nonspecific ST and T wave abnormality Prolonged QT Abnormal ECG When compared with ECG of 04-JUL-2023 11:41, Criteria for Septal infarct are no longer Present I personally reviewed the tracing and edited the fellows interpretation Confirmed by fellow MD Keyshawn, Katalina ([id number]) on 07/08/2023 3:18:07 PM Confirmed by MD Henderson Katharine ([id number]) on 07/09/2023 6:15:21 AM MUSE SYSTEM 07/08/2023 9:58 AM EDT 07/09/2023 6:15 AM EDT Lisa Beck MD ECG ORDERABLES Performing Organization Address City/[facility]/ZIP Co de Phone Number MUSE SYSTEM * Differential, Automated (07/08/2023 5:52 AM EDT) Neutrophils % 60.6 % [facility] Neutr Abs (ANC) 4.42 1.70 - 6.10 x10(3)/[facility] Lymphocytes % 24.8 % [facility] Lymphocytes Abs 1.8 0.9 - 3.2 x10(3)/[facility] Monocytes % 9.2 % [facility] Monocyte Abs 0.7 0.3 - 0.9 x10(3)/[facility] Eosinophils % 4.5 % [facility] Eosinophils Abs 0.3 0.0 - 0.4 x10(3)/[facility] Basophils % 0.5 % [facility] Basophils Abs 0.0 0.0 - 0.1 x10(3)/[facility] Immature Gran % 0.40 % [facility] Comment: Immature granulocytes(IG's)percentage and absolute count will include metamyelocytes, myelocytes, and promyelocytes. Blood smears from CBCs yielding IG's will be scanned manually for concordance. If this scan disagrees with the automated IG or if promyelocytes are noted, a manual differential will be performed. Shonda Gran Abs 0.03 0.00 - 0.04 x10(3)/[facility] Blood 07/08/2023 5:52 AM EDT 07/08/2023 5:58 AM EDT Narrative Resulting Agency Comment Spec In Lab Terrence Keating MD HEMATOLOGY ORDERABLE S [facility] [place] [address] * (ABNORMAL) Hemogram (07/08/2023 5:52 AM EDT) WBC 7.3 4.0 - 9.5 x10(3)/[facility] RBC 3.94(L) 4.00 - 5.21 x10(6)/[facility] Hemoglobin 12.3 11.7 - 15.5 g/dL [facility] Hematocrit 36.3 35.7 - 45.8 % [facility] MCV 92.1 82.6 - 94.4 fL [facility] MCH 31.2 27.1 - 32.0 pg [facility] MCHC 33.9 31.7 - 35.0 g/dL [facility] Platelets 207 145 - 357 x10(3)/[facility] RDWSD 44.6 37.0 - 46.0 fL [facility] RDWCV 13.3 11.5 - 14.1 % [facility] MPV 10.5 7.6 - 12.9 [facility] nRBC % Auto 0.0 % [facility] nRBC Abs Auto 0.000 0.000 - 0.000 x10(3)/[facility] Blood 07/08/2023 5:52 AM EDT 07/08/2023 5:58 AM EDT Narrative Resulting Agency Comment Spec In Lab Terrence Keating MD HEMATOLOGY ORDERABLE S Performing Organization Address City/State/[facility] Co de Phone Number [facility] [place] [address] * Heparin (unfractionated) Level (07/08/2023 5:52 AM EDT) Heparin UFH Level 0.37 IU/mL [facility] Comment: Heparin (anti-Xa) levels [...] Lab Ailyn Irvin MD HEMATOLOGY ORDERABLE S [facility] [place] [address] * (ABNORMAL) Basic Metabolic Panel (non-fasting) (07/08/2023 5:52 AM EDT) Glucose Lvl 102 65 - 199 mg/dL [facility] Comment:Diabetes: >=200 mg/d L plus symptoms BUN 14 8 - 18 mg/dL [facility] Creatinine 1.30(H) 0.70 - 1.20 mg/dL [facility] Sodium 139 135 - 145 mmol/L [facility] Potassium 3.2(L) 3.5 - 5.0 mmol/L [facility] Comment: Please note: ??Patients with WBC >100,000 may have falsely elevated Potassium levels. ??For accurate Potassium quantification in these patients send serum separator tube (gold top) for subsequent determinations. ??Contact the Clinical Chemistry Laboratory if there are any questions. Chloride 101 98 - 107 mmol/L [facility] CO2 25 22 - 31 mmol/L [facility] Anion Gap 13 5 - 15 mmol/L [facility] Calcium 9.3 8.5 - 10.5 mg/dL [facility] Estimated GFR 49(L) >=60 mL/min/1. 73 m?? [facility] Comment: This patient's estimated [...] MD CHEMISTRY ORDERABL ES Performing Organization Address [facility] Co de Phone Number [facility] [place] [address] * Phosphorus (07/08/2023 5:52 AM EDT) Phosphorus 4.3 2.5 - 4.5 mg/dL [facility] Blood 07/08/2023 5:52 AM EDT 07/08/2023 5:58 AM EDT Narrative Resulting Agency Comment Spec In Lab Eufemia Copeland MD CHEMISTRY ORDERABL ES Performing Organization Address [facility] Co de Phone Number [facility] [place] [address] * Magnesium (07/08/2023 5:52 AM EDT) Magnesium 0.89 0.69 - 1.07 mmol/L [facility] Blood 07/08/2023 5:52 AM EDT 07/08/2023 5:58 AM EDT Narrative Resulting Agency Comment Spec In Lab Eufemia Copeland MD CHEMISTRY ORDERABL ES Performing Organization Address [facility] Co de Phone Number [facility] [place] [address] * Heparin (unfractionated) Level (07/08/2023 12:00 AM EDT) Heparin UFH Level 0.22 IU/mL [facility] Comment: Heparin (anti-Xa) levels [...] MD HEMATOLOGY ORDERABLE S Performing Organization Address [facility] Co de Phone Number [facility] [place] [address] * Specimen to Pathology (07/07/2023 2:55 PM EDT) AP Specimen 07/07/2023 2:55 PM EDT 07/07/2023 2:55 PM EDT Narrative [facility] - 07/07/2023 2:55 PM EDT Specimen requisition ordered. ??Separate Pathology report to follow Terrence Keating MD PATHOLOGY/CYTOLOGY O RUMA Performing Organization Address [facility] Co de Phone Number [facility] [place] [address] * Specimen to Pathology (07/07/2023 2:38 PM EDT) AP Specimen 07/07/2023 2:38 PM EDT 07/07/2023 2:38 PM EDT Narrative [facility] - 07/07/2023 2:38 PM EDT Specimen requisition ordered. ??Separate Pathology report to follow Terrence Keating MD PATHOLOGY/CYTOLOGY O RDERABLES Performing Organization Address City/[facility]/ZIP Co de Phone Number [facility] [place] [address] * Specimen to Pathology (07/07/2023 2:38 PM EDT) AP Specimen 07/07/2023 2:38 PM EDT 07/07/2023 2:38 PM EDT Narrative [facility] - 07/07/2023 2:38 PM EDT Specimen requisition ordered. ??Separate Pathology report to follow Terrence Keating MD PATHOLOGY/CYTOLOGY O RDERABLES Performing Organization Address [facility] Co de Phone Number [facility] [place] [address] * Surgical Pathology Report (07/07/2023 2:25 PM EDT) FINAL DIAGNOSIS (AP) [id number] ? Location: [facility]; [facility]; A The signing pathologist has (i) examined [...] Sapna Verified: ??07/19/2023 13:25 ??Pathologist Performed at: ??-[facility] [place], [place] [address] Quality Assurance Group Leader: Vangie Lu MD, FCAP, ??CLIA Certificate: [id number] SPECIMEN(S) SUBMITTED A - duodenal biopsies rule [...] labeled C1-C2. ??sdy 07/19/2023 1:25 PM EDT [facility] 07/07/2023 2:25 PM EDT Lashonda Villa MD PATHOLOGY/CYTOLOGY O RUMA [facility] [place] [address] * COLONOSCOPY (07/07/2023 1:39 PM EDT) COLONOSCOPY [facility] Endoscopy Procedure Date: 07/07/2023 1:39 PM ? Patient Name: Loida Roque ? Date of : 1970 ? Age: 53 ? Order #: [id number] ? Instrument Name: [id number] ? Procedure: ? Colonoscopy Indications: ? Abdominal pain, Diarrhea Providers: ? Lashonda Villa MD, Porsha ? Systrom, Bouchra Mejia MD: ? Medicines: [...] ? was evaluated using the BBPS ? ([place] Bowel Preparation Scale) ? with scores of: [...] Procedure Code(s): ? --- Professional --- ? 63887, Colonoscopy, flexible; with ? biopsy, single or multiple CPT copyright 2021 [employer]. All rights reserved. The codes documented in this report are preliminary and upon maintenance painter review may be revised to meet current [...] 1 EIA Negative for Shiga Toxin 2 [facility] Stool 07/07/2023 12:1 0 PM EDT 07/07/2023 12:53 PM EDT Narrative Resulting Agency Comment Spec In Lab Ailyn Irvin MD MICROBIOLOGY - GENER AL ORDERABLES Performing Organization Address [facility] Co de Phone Number [facility] [place] [address] * Campylobacter Antigen (07/07/2023 12:10 PM EDT) Campylobacter Ag Immunoassay Negative for Campylobacter Antigen [facility] Stool 07/07/2023 12:1 0 PM EDT 07/07/2023 12:53 PM EDT Narrative Resulting Agency Comment Spec In Lab Ailyn Irvin MD MICROBIOLOGY - GENER AL ORDERABLES Performing Organization Address [facility] Co de Phone Number [facility] [place] [address] * Stool culture (07/07/2023 12:10 PM EDT) Stool Culture No enteric pathogens isolated [facility] Stool 07/07/2023 12:1 0 PM EDT 07/07/2023 12:53 PM EDT Narrative Resulting Agency Comment Spec In Lab Ailyn Irvin MD MICROBIOLOGY - GENER AL ORDERABLES Performing Organization Address [facility] Co de Phone Number [facility] [place] [address] * (ABNORMAL) Differential, Automated (07/07/2023 3:51 AM EDT) Neutrophils % 58.9 % [facility] Neutr Abs (ANC) 4.67 1.70 - 6.10 x10(3)/[facility] LABORATORY Lymphocytes % 24.8 % [facility] Lymphocytes Abs 2.0 0.9 - 3.2 x10(3)/[facility] LABORATORY Monocytes % 9.4 % [facility] Monocyte Abs 0.7 0.3 - 0.9 x10(3)/[facility] LABORATORY Eosinophils % 6.1 % [facility] Eosinophils Abs 0.5(H) 0.0 - 0.4 x10(3)/[facility] LABORATORY Basophils % 0.5 % [facility] Basophils Abs 0.0 0.0 - 0.1 x10(3)/[facility] LABORATORY Immature Gran % 0.30 % [facility] Comment: Immature granulocytes(IG's)percentage and absolute count will include metamyelocytes, myelocytes, and promyelocytes. Blood smears from CBCs yielding IG's will be scanned manually for concordance. If this scan disagrees with the automated IG or if promyelocytes are noted, a manual differential will be performed. Shonda Gran Abs 0.02 0.00 - 0.04 x10(3)/[facility] LABORATORY Blood 07/07/2023 3:51 AM EDT 07/07/2023 4:08 AM EDT Narrative Resulting Agency Comment Spec In Lab Terrence Keating MD HEMATOLOGY ORDERABLE S [facility] [place] [address] * Hemogram (07/07/2023 3:51 AM EDT) WBC 7.9 4.0 - 9.5 x10(3)/[facility] LABORATORY RBC 4.42 4.00 - 5.21 x10(6)/[facility]ORY Hemoglobin 13.8 11.7 - 15.5 g/dL [facility] Hematocrit 41.0 35.7 - 45.8 % [facility] MCV 92.8 82.6 - 94.4 fL [facility] MCH 31.2 27.1 - 32.0 pg [facility] MCHC 33.7 31.7 - 35.0 g/dL [facility] Platelets 255 145 - 357 x10(3)/[facility] RDWSD 44.8 37.0 - 46.0 fL [facility] RDWCV 13.2 11.5 - 14.1 % [facility] MPV 10.6 7.6 - 12.9 fL [facility] nRBC % Auto 0.0 % [facility] nRBC Abs Auto 0.000 0.000 - 0.000 x10(3)/[facility] LABORATORY Blood 07/07/2023 3:51 AM EDT 07/07/2023 4:08 AM EDT Narrative Resulting Agency Comment Spec In Lab Terrence Keating MD HEMATOLOGY ORDERABLE S [facility] [place] [address] * Heparin (unfractionated) Level (07/07/2023 3:51 AM EDT) Heparin UFH Level 0.33 IU/mL [facility] Comment: Heparin (anti-Xa) levels [...] Lab Terrence Keating MD HEMATOLOGY ORDERABLE S [facility] [place] [address] * (ABNORMAL) Basic Metabolic Panel (non-fasting) (07/07/2023 3:51 AM EDT) Glucose Lvl 101 65 - 199 mg/dL [facility] Comment:Diabetes: >=200 mg/d L plus symptoms BUN 18 8 - 18 mg/dL [facility] Creatinine 1.30(H) 0.70 - 1.20 mg/dL [facility] Sodium 135 135 - 145 mmol/L [facility] Potassium 3.5 3.5 - 5.0 mmol/L [facility] Comment: Please note: ??Patients with WBC >100,000 may have falsely elevated Potassium levels. ??For accurate Potassium quantification in these patients send serum separator tube (gold top) for subsequent determinations. ??Contact the Clinical Chemistry Laboratory if there are any questions. Chloride 96(L) 98 - 107 mmol/L [facility] CO2 23 22 - 31 mmol/L [facility] Anion Gap 16(H) 5 - 15 mmol/L [facility] Calcium 9.4 8.5 - 10.5 mg/dL [facility] Estimated GFR 49(L) >=60 mL/min/1. 73 m?? [facility] Comment: This patient's estimated [...] MD CHEMISTRY ORDERABL ES Performing Organization Address [facility] Co de Phone Number [facility] [place] [address] * Phosphorus (07/07/2023 3:51 AM EDT) Phosphorus 4.0 2.5 - 4.5 mg/dL [facility] Blood 07/07/2023 3:51 AM EDT 07/07/2023 4:08 AM EDT Narrative Resulting Agency Comment Spec In Lab Eufemia Copeland MD CHEMISTRY ORDERABL ES Performing Organization Address [facility] Co de Phone Number [facility] [place] [address] * Magnesium (07/07/2023 3:51 AM EDT) Magnesium 0.87 0.69 - 1.07 mmol/L [facility] Blood 07/07/2023 3:51 AM EDT 07/07/2023 4:08 AM EDT Narrative Resulting Agency Comment Spec In Lab Eufmeia Copeland MD CHEMISTRY ORDERABL ES Performing Organization Address [facility] Co de Phone Number [facility] [place] [address] * Hepatic Function Panel (07/07/2023 3:51 AM EDT) Total Protein 7.5 6.1 - 8.0 g/dL [facility] Albumin 4.4 3.2 - 5.2 g/dL [facility] AST 15 0 - 30 unit/L [facility] ALT 20 0 - 30 unit/L [facility] Alk Phos 54 35 - 105 unit/L [facility] Total Bilirubin 0.4 0.2 - 1.3 mg/dL [facility] Bili, Direct 0.1 0.0 - 0.3 mg/dL [facility] Blood 07/07/2023 3:51 AM EDT 07/07/2023 4:08 AM EDT Narrative Resulting Agency Comment Spec In Lab Ailyn Irvin MD CHEMISTRY ORDERABLES Performing Organization Address City/[facility]/ZIP Co de Phone Number [facility] [place] [address] * Giardia/Cryptosporidium Antigens ([facility]P/APD/[facility]H) (07/07/2023 12:38 AM EDT) Pathologist [facility] [place] Giardia Screen Negative Negative [facility] Comment:Examination for othe r intestinal parasites requires foreign travel history. Cryptosporidium Screen Negative Negative [facility] Stool 07/07/2023 12:3 8 AM EDT 07/07/2023 7:56 AM EDT Narrative Resulting Agency Comment Spec In Lab Ailyn Irvin MD MICROBIOLOGY - GENER AL ORDERABLES [facility] [place] [address] * Hepatic Function Panel (07/06/2023 3:41 PM EDT) Total Protein 7.6 6.1 - 8.0 g/dL [facility] Albumin 4.3 3.2 - 5.2 g/dL [facility] AST 20 0 - 30 unit/L [facility] ALT 22 0 - 30 unit/L [facility] Alk Phos 58 35 - 105 unit/L [facility] Total Bilirubin 0.4 0.2 - 1.3 mg/dL [facility] Bili, Direct 0.1 0.0 - 0.3 mg/dL [facility] Blood 07/06/2023 3:41 PM EDT 07/06/2023 4:00 PM EDT Narrative Resulting Agency Comment Spec In Lab Terrence Keating MD CHEMISTRY ORDERABLES Performing Organization Address [facility] Co de Phone Number [facility] [place] [address] * Hepatic Function Panel (07/06/2023 3:54 AM EDT) Total Protein 7.6 6.1 - 8.0 g/dL [facility] Albumin 4.3 3.2 - 5.2 g/dL [facility] AST Not Perf 0 - 30 [facility] Comment: Unable to quantitate due to sample hemolysis. ??Sample redraw suggested. Called by: abimbola, Read back by: Ana Paula Borja, Date/Time:07/06/23 14:08. ALT 25 0 - 30 unit/L [facility] Alk Phos 58 35 - 105 unit/L [facility] Total Bilirubin 0.4 0.2 - 1.3 mg/dL [facility] Bili, Direct Not Perf 0.0 - 0.3 [facility] Blood Venous Draw / Unknown 07/06/2023 3:54 AM EDT 07/06/2023 4:18 AM EDT Narrative Resulting Agency Comment Spec In Lab Terrence Keating MD CHEMISTRY ORDERABLES Performing Organization Address City/[facility]/ZIP Co de Phone Number [facility] [place] [address] * (ABNORMAL) Differential, Automated (07/06/2023 3:54 AM EDT) Neutrophils % 56.6 % [facility] Neutr Abs (ANC) 4.34 1.70 - 6.10 x10(3)/[facility] LABORATORY Lymphocytes % 26.1 % [facility] Lymphocytes Abs 2.0 0.9 - 3.2 x10(3)/[facility] LABORATORY Monocytes % 9.6 % [facility] Monocyte Abs 0.7 0.3 - 0.9 x10(3)/[facility] LABORATORY Eosinophils % 6.6 % [facility] Eosinophils Abs 0.5(H) 0.0 - 0.4 x10(3)/[facility] LABORATORY Basophils % 0.7 % [facility] Basophils Abs 0.0 0.0 - 0.1 x10(3)/[facility] LABORATORY Immature Gran % 0.40 % [facility] Comment: Immature granulocytes(IG's)percentage and absolute count will include metamyelocytes, myelocytes, and promyelocytes. Blood smears from CBCs yielding IG's will be scanned manually for concordance. If this scan disagrees with the automated IG or if promyelocytes are noted, a manual differential will be performed. Shonda Gran Abs 0.03 0.00 - 0.04 x10(3)/[facility] LABORATORY Blood 07/06/2023 3:54 AM EDT 07/06/2023 4:12 AM EDT Narrative Resulting Agency Comment Spec In Lab Terrence Keating MD HEMATOLOGY ORDERABLE S [facility] [place] [address] * (ABNORMAL) Hemogram (07/06/2023 3:54 AM EDT) WBC 7.7 4.0 - 9.5 x10(3)/[facility] LABORATORY RBC 4.62 4.00 - 5.21 x10(6)/[facility] LABORATORY Hemoglobin 14.7 11.7 - 15.5 g/dL [facility] Hematocrit 43.8 35.7 - 45.8 % [facility] MCV 94.8(H) 82.6 - 94.4 fL [facility] MCH 31.8 27.1 - 32.0 pg [facility] MCHC 33.6 31.7 - 35.0 g/dL [facility] Platelets 243 145 - 357 x10(3)/[facility] LABORATORY RDWSD 47.2(H) 37.0 - 46.0 [facility] LABORATORY RDWCV 13.5 11.5 - 14.1 % [facility] MPV 10.4 7.6 - 12.9 [facility] LAB[facility]ATORY nRBC % Auto 0.0 % [facility] nRBC Abs Auto 0.000 0.000 - 0.000 x10(3)/[facility]ORATORY Blood 07/06/2023 3:54 AM EDT 07/06/2023 4:12 AM EDT Narrative Resulting Agency Comment Spec In Lab Terrence Keating MD HEMATOLOGY ORDERABLE S [facility] [place] [address] * (ABNORMAL) Basic Metabolic Panel (non-fasting) (07/06/2023 3:54 AM EDT) Glucose Lvl 107 65 - 199 mg/dL [facility] Comment:Diabetes: >=200 mg/d L plus symptoms BUN 16 8 - 18 mg/dL [facility] Creatinine 1.25(H) 0.70 - 1.20 mg/dL [facility] Sodium 135 135 - 145 mmol/L [facility] Potassium 3.9 3.5 - 5.0 mmol/L [facility] Comment: Please note: ??Patients with WBC >100,000 may have falsely elevated Potassium levels. ??For accurate Potassium quantification in these patients send serum separator tube (gold top) for subsequent determinations. ??Contact the Clinical Chemistry Laboratory if there are any questions. Chloride 98 98 - 107 mmol/L [facility] CO2 23 22 - 31 mmol/L [facility] Anion Gap 14 5 - 15 mmol/L [facility] Calcium 10.0 8.5 - 10.5 mg/dL [facility] Estimated GFR 51(L) >=60 mL/min/1. 73 m?? [facility] Comment: This patient's estimated [...] MD CHEMISTRY ORDERABL ES Performing Organization Address City/State/[facility] Co de Phone Number [facility] [place] [address] * Phosphorus (07/06/2023 3:54 AM EDT) Phosphorus 4.5 2.5 - 4.5 mg/dL [facility] Blood 07/06/2023 3:54 AM EDT 07/06/2023 4:18 AM EDT Narrative Resulting Agency Comment Spec In Lab Eufemia Copeland MD CHEMISTRY ORDERABL ES Performing Organization Address City/[facility]/ZIP Co de Phone Number [facility] [place] [address] * Magnesium (07/06/2023 3:54 AM EDT) Magnesium 0.97 0.69 - 1.07 mmol/L [facility] Blood 07/06/2023 3:54 AM EDT 07/06/2023 4:18 AM EDT Narrative Resulting Agency Comment Spec In Lab Eufemia Copeland MD CHEMISTRY ORDERABL ES Performing Organization Address [facility] Co de Phone Number [facility] [place] [address] * Heparin (unfractionated) Level (07/06/2023 3:54 AM EDT) [facility] Heparin UFH Level 0.31 IU/mL [facility] Comment: Heparin (anti-Xa) levels [...] [facility]/ZIP Co de Phone Number [facility] [place] [address] * Amylase (07/05/2023 5:44 PM EDT) Amylase 35 28 - 100 unit/L [facility] Blood 07/05/2023 5:44 PM EDT 07/05/2023 6:00 PM EDT Narrative Resulting Agency Comment Spec In Lab Terrence Keating MD CHEMISTRY ORDERABLES Performing Organization Address City/[facility] Co de Phone Number [facility] [place] [address] * Lipase (07/05/2023 5:44 PM EDT) Lipase 17 0 - 60 unit/L [facility] Blood 07/05/2023 5:44 PM EDT 07/05/2023 6:00 PM EDT Narrative Resulting Agency Comment Spec In Lab Terrence Keating MD CHEMISTRY ORDERABLES Performing Organization Address [facility] de Phone Number [facility] [place] [address] * (ABNORMAL) Basic Metabolic Panel (non-fasting) (07/05/2023 5:44 PM EDT) Glucose Lvl 130 65 - 199 mg/dL [facility] Comment:Diabetes: >=200 mg/d L plus symptoms BUN 17 8 - 18 mg/dL [facility] Creatinine 1.30(H) 0.70 - 1.20 mg/dL [facility] Sodium 134(L) 135 - 145 mmol/L [facility] Potassium 3.7 3.5 - 5.0 mmol/L [facility] Comment: Please note: ??Patients with WBC >100,000 may have falsely elevated Potassium levels. ??For accurate Potassium quantification in these patients send serum separator tube (gold top) for subsequent determinations. ??Contact the Clinical Chemistry Laboratory if there are any questions. Chloride 98 98 - 107 mmol/L [facility] CO2 21(L) 22 - 31 mmol/L [facility] Anion Gap 15 5 - 15 mmol/L [facility] Calcium 9.6 8.5 - 10.5 mg/dL [facility] Estimated GFR 49(L) >=60 mL/min/1. 73 m?? [facility] Comment: This patient's estimated [...] Keating MD CHEMISTRY ORDERABLES Performing Organization Address City/State/[facility] Co de Phone Number [facility] [place] [address] * Duplex Study Visceral Arteries, Comp (07/05/2023 9:46 AM EDT) VB Text Report Department: Vascular Surgery Lab Patient: [id number] (LOIDA ROQUE) CPT: [id number] Referring Physician: TERRENCE KEATING ?? Phone: Indications: [...] ?Bi-Triphasic ?101 ?11 ?? Hepatic Artery ? [place]-Biphasic ? 123 ?23 ?? Splenic Artery ? [place]-Biphasic ? 122 ?24 ?? Inf Mes Artery [...] 5:05 AM EDT) Neutrophils % 63.0 % [facility] Neutr Abs (ANC) 5.59 1.70 - 6.10 x10(3)/[facility] LABORATORY Lymphocytes % 22.4 % [facility] Lymphocytes Abs 2.0 0.9 - 3.2 x10(3)/[facility] LABORATORY Monocytes % 9.7 % [facility] Monocyte Abs 0.9 0.3 - 0.9 x10(3)/[facility] LABORATORY Eosinophils % 4.1 % [facility] Eosinophils Abs 0.4 0.0 - 0.4 x10(3)/[facility] LABORATORY Basophils % 0.6 % [facility] Basophils Abs 0.0 0.0 - 0.1 x10(3)/[facility] LABORATORY Immature Gran % 0.20 % [facility] Comment: Immature granulocytes(IG's)percentage and absolute count will include metamyelocytes, myelocytes, and promyelocytes. Blood smears from CBCs yielding IG's will be scanned manually for concordance. If this scan disagrees with the automated IG or if promyelocytes are noted, a manual differential will be performed. Shonda Gran Abs 0.02 0.00 - 0.04 x10(3)/[facility] LABORATORY Blood 07/05/2023 5:05 AM EDT 07/05/2023 5:17 AM EDT Narrative Resulting Agency Comment Spec In Lab Terrence Keating MD HEMATOLOGY ORDERABLE S [facility] [place] [address] * (ABNORMAL) Hemogram (07/05/2023 5:05 AM EDT) WBC 8.9 4.0 - 9.5 x10(3)/[facility] LABORATORY RBC 4.42 4.00 - 5.21 x10(6)/[facility] Hemoglobin 13.7 11.7 - 15.5 g/dL [facility] Hematocrit 41.4 35.7 - 45.8 % [facility] MCV 93.7 82.6 - 94.4 fL [facility] MCH 31.0 27.1 - 32.0 pg [facility] MCHC 33.1 31.7 - 35.0 g/dL [facility] Platelets 245 145 - 357 x10(3)/[facility] RDWSD 47.1(H) 37.0 - 46.0 [facility] LAB[facility]ATORY RDWCV 13.7 11.5 - 14.1 % [facility] MPV 10.8 7.6 - 12.9 [facility] LAB[facility]ATORY nRBC % Auto 0.0 % [facility] nRBC Abs Auto 0.000 0.000 - 0.000 x10(3)/[facility] LABORATORY Blood 07/05/2023 5:05 AM EDT 07/05/2023 5:17 AM EDT Narrative Resulting Agency Comment Spec In Lab Terrence Keating MD HEMATOLOGY ORDERABLE S Performing Organization Address City/State/[facility] Co de Phone Number [facility] [place] [address] * Heparin (unfractionated) Level (07/05/2023 5:05 AM EDT) Heparin UFH Level 0.35 IU/mL [facility] Comment: Heparin (anti-Xa) levels [...] Lab Ailyn Irvin MD HEMATOLOGY ORDERABLE S [facility] [place] [address] * (ABNORMAL) Basic Metabolic Panel (non-fasting) (07/05/2023 5:05 AM EDT) Glucose Lvl 114 65 - 199 mg/dL [facility] Comment:Diabetes: >=200 mg/d L plus symptoms BUN 19(H) 8 - 18 mg/dL [facility] Creatinine 1.51(H) 0.70 - 1.20 mg/dL [facility] Sodium 134(L) 135 - 145 mmol/L [facility] Potassium 3.8 3.5 - 5.0 mmol/L [facility] Comment: Please note: ??Patients with WBC >100,000 may have falsely elevated Potassium levels. ??For accurate Potassium quantification in these patients send serum separator tube (gold top) for subsequent determinations. ??Contact the Clinical Chemistry Laboratory if there are any questions. Chloride 97(L) 98 - 107 mmol/L [facility] CO2 25 22 - 31 mmol/L [facility] Anion Gap 12 5 - 15 mmol/L [facility] Calcium 10.0 8.5 - 10.5 mg/dL [facility] Estimated GFR 41(L) >=60 mL/min/1. 73 m?? [facility] Comment: This patient's estimated [...] MD CHEMISTRY ORDERABL ES Performing Organization Address [facility] Co de Phone Number [facility] [place] [address] * (ABNORMAL) Phosphorus (07/05/2023 5:05 AM EDT) Phosphorus 5.0(H) 2.5 - 4.5 mg/dL [facility] Blood 07/05/2023 5:05 AM EDT 07/05/2023 5:17 AM EDT Narrative Resulting Agency Comment Spec In Lab Eufemia Copeland MD CHEMISTRY ORDERABL ES Performing Organization Address [facility] Co de Phone Number [facility] [place] [address] * Magnesium (07/05/2023 5:05 AM EDT) Magnesium 1.01 0.69 - 1.07 mmol/L [facility] Blood 07/05/2023 5:05 AM EDT 07/05/2023 5:17 AM EDT Narrative Resulting Agency Comment Spec In Lab Eufemia Copeland MD CHEMISTRY ORDERABL ES Performing Organization Address [facility] Co de Phone Number [facility] [place] [address] * EKG 12 Lead (07/04/2023 11:41 AM EDT) Ventricular rate 76 BPM MUSE SYSTEM Atrial Rate 76 BPM MUSE SYSTEM P-R Interval 174 ms MUSE SYSTEM QRS Duration 88 ms MUSE SYSTEM Q-T Interval 450 ms MUSE SYSTEM QTC Calculated (Bezet) 506 ms MUSE SYSTEM Calculated P [place] 36 degrees MUSE SYSTEM Calculated R [place] 35 degrees MUSE SYSTEM Calculated T [place] 37 degrees MUSE SYSTEM INTERPRETATION Normal sinus [...] 3:47 AM EDT) Neutrophils % 63.5 % [facility] Neutr Abs (ANC) 5.19 1.70 - 6.10 x10(3)/[facility] Lymphocytes % 24.4 % [facility] Lymphocytes Abs 2.0 0.9 - 3.2 x10(3)/[facility] Monocytes % 8.1 % [facility] Monocyte Abs 0.7 0.3 - 0.9 x10(3)/[facility] Eosinophils % 3.4 % [facility] Eosinophils Abs 0.3 0.0 - 0.4 x10(3)/[facility] Basophils % 0.4 % [facility] Basophils Abs 0.0 0.0 - 0.1 x10(3)/[facility] Immature Gran % 0.20 % [facility] Comment: Immature granulocytes(IG's)percentage and absolute count will include metamyelocytes, myelocytes, and promyelocytes. Blood smears from CBCs yielding IG's will be scanned manually for concordance. If this scan disagrees with the automated IG or if promyelocytes are noted, a manual differential will be performed. Shonda Gran Abs 0.02 0.00 - 0.04 x10(3)/[facility] Blood 07/04/2023 3:47 AM EDT 07/04/2023 4:15 AM EDT Narrative Resulting Agency Comment Spec In Lab Terrence Keating MD HEMATOLOGY ORDERABLE S [facility] [place] [address] * (ABNORMAL) Hemogram (07/04/2023 3:47 AM EDT) WBC 8.2 4.0 - 9.5 x10(3)/[facility] RBC 4.26 4.00 - 5.21 x10(6)/[facility] Hemoglobin 13.5 11.7 - 15.5 g/dL [facility] Hematocrit 40.0 35.7 - 45.8 % [facility] MCV 93.9 82.6 - 94.4 [facility] MCH 31.7 27.1 - 32.0 pg [facility] MCHC 33.8 31.7 - 35.0 g/dL [facility] Platelets 219 145 - 357 x10(3)/[facility] RDWSD 47.0(H) 37.0 - 46.0 [facility] RDWCV 13.7 11.5 - 14.1 % [facility] MPV 11.0 7.6 - 12.9 [facility] nRBC % Auto 0.0 % [facility] nRBC Abs Auto 0.000 0.000 - 0.000 x10(3)/[facility] Blood 07/04/2023 3:47 AM EDT 07/04/2023 4:15 AM EDT Narrative Resulting Agency Comment Spec In Lab Terrence Keating MD HEMATOLOGY ORDERABLE S Performing Organization Address [facility] Co de Phone Number [facility] [place] [address] * Heparin (unfractionated) Level (07/04/2023 3:47 AM EDT) Heparin UFH Level 0.44 IU/mL [facility] Comment: Heparin (anti-Xa) levels [...] MD HEMATOLOGY ORDERABLE S Performing Organization Address [facility]/ZIP Co de Phone Number [facility] [place] [address] * (ABNORMAL) Basic Metabolic Panel (non-fasting) (07/04/2023 3:47 AM EDT) Glucose Lvl 104 65 - 199 mg/dL [facility] Comment:Diabetes: >=200 mg/d L plus symptoms BUN 16 8 - 18 mg/dL [facility] Creatinine 1.28(H) 0.70 - 1.20 mg/dL [facility] Sodium 139 135 - 145 mmol/L [facility] Potassium 3.8 3.5 - 5.0 mmol/L [facility] Comment: Please note: ??Patients with WBC >100,000 may have falsely elevated Potassium levels. ??For accurate Potassium quantification in these patients send serum separator tube (gold top) for subsequent determinations. ??Contact the Clinical Chemistry Laboratory if there are any questions. Chloride 102 98 - 107 mmol/L [facility] CO2 21(L) 22 - 31 mmol/L [facility] Anion Gap 16(H) 5 - 15 mmol/L [facility] Calcium 9.5 8.5 - 10.5 mg/dL [facility] Estimated GFR 50(L) >=60 mL/min/1. 73 m?? [facility] Comment: This patient's estimated [...] Lab Eufemia Copeland MD CHEMISTRY ORDERABL ES [facility] [place] [address] * (ABNORMAL) Phosphorus (07/04/2023 3:47 AM EDT) Phosphorus 4.9(H) 2.5 - 4.5 mg/dL [facility] Blood 07/04/2023 3:47 AM EDT 07/04/2023 4:15 AM EDT Narrative Resulting Agency Comment Spec In Lab Eufemia Copeland MD CHEMISTRY ORDERABL ES Performing Organization Address [facility] Co de Phone Number [facility] [place] [address] * Magnesium (07/04/2023 3:47 AM EDT) Magnesium 1.05 0.69 - 1.07 mmol/L [facility] Blood 07/04/2023 3:47 AM EDT 07/04/2023 4:15 AM EDT Narrative Resulting Agency Comment Spec In Lab Eufemia Copeland MD CHEMISTRY ORDERABL ES Performing Organization Address [facility] Co de Phone Number [facility] [place] [address] * EKG 12 Lead (07/03/2023 9:36 PM EDT) Ventricular rate 61 BPM MUSE SYSTEM Atrial Rate 61 BPM MUSE SYSTEM P-R Interval 188 ms MUSE SYSTEM QRS Duration 88 ms MUSE SYSTEM Q-T Interval 512 ms MUSE SYSTEM QTC Calculated (Bezet) 515 ms MUSE SYSTEM Calculated P [place] 56 degrees MUSE SYSTEM Calculated R [place] 69 degrees MUSE SYSTEM Calculated T [place] 29 degrees MUSE SYSTEM INTERPRETATION Normal sinus [...] Beck MD ECG ORDERABLES Performing Organization Address [facility] Co de Phone Number MUSE SYSTEM * Magnesium (07/03/2023 6:00 PM EDT) Magnesium 0.89 0.69 - 1.07 mmol/L [facility] Blood 07/03/2023 6:00 PM EDT 07/03/2023 6:07 PM EDT Narrative Resulting Agency Comment Spec In Lab Lino Calles MD CHEMISTRY ORDERABLES [facility] [place] [address] * (ABNORMAL) Basic Metabolic Panel (non-fasting) (07/03/2023 6:00 PM EDT) Glucose Lvl 116 65 - 199 mg/dL [facility] Comment:Diabetes: >=200 mg/d L plus symptoms BUN 16 8 - 18 mg/dL [facility] Creatinine 1.37(H) 0.70 - 1.20 mg/dL [facility] Sodium 137 135 - 145 mmol/L [facility] Potassium 4.1 3.5 - 5.0 mmol/L [facility] Comment: Please note: ??Patients with WBC >100,000 may have falsely elevated Potassium levels. ??For accurate Potassium quantification in these patients send serum separator tube (gold top) for subsequent determinations. ??Contact the Clinical Chemistry Laboratory if there are any questions. Chloride 102 98 - 107 mmol/L [facility] CO2 21(L) 22 - 31 mmol/L [facility] Anion Gap 14 5 - 15 mmol/L [facility] Calcium 9.5 8.5 - 10.5 mg/dL [facility] Estimated GFR 46(L) >=60 mL/min/1. 73 m?? [facility] Comment: This patient's estimated [...] In Lab Lino Calles MD CHEMISTRY ORDERABLES [facility] [place] [address] * XR Chest One View (07/03/2023 3:18 PM EDT) WORKSTATION ID [id number] RAD Anatomical Region Laterality Modality Chest N/A Digital Radiogra phy Impressions 07/03/2023 3:27 PM EDT No pulmonary edema or pleural effusion Thank you for letting us participate in the care of this patient. ??If you are a health care provider and have any questions regarding this report, please contact the number below. ??For patients who have questions please contact the health care provider that requested your imaging first. ? Narrative [...] who have questions please contactthe health care provider that requested your imaging first. Lino Calles MD IMG DX ORDERABLES * Arterial Duplex Leg, Unil (07/03/2023 9:34 AM EDT) VB Text Report Department: Vascular Surgery Lab Patient: [id number] (LOIDA ROQUE) CPT: 95820 Referring Physician: LINO CALLES ?? Phone: Indications: [...] 3:07 AM EDT) Neutrophils % 67.2 % [facility] Neutr Abs (ANC) 5.51 1.70 - 6.10 x10(3)/[facility] Lymphocytes % 20.7 % [facility] Lymphocytes Abs 1.7 0.9 - 3.2 x10(3)/[facility] Monocytes % 7.7 % [facility] Monocyte Abs 0.6 0.3 - 0.9 x10(3)/[facility] Eosinophils % 3.7 % [facility] Eosinophils Abs 0.3 0.0 - 0.4 x10(3)/[facility] Basophils % 0.5 % [facility] Basophils Abs 0.0 0.0 - 0.1 x10(3)/[facility] Immature Gran % 0.20 % [facility] Comment: Immature granulocytes(IG's)percentage and absolute count will include metamyelocytes, myelocytes, and promyelocytes. Blood smears from CBCs yielding IG's will be scanned manually for concordance. If this scan disagrees with the automated IG or if promyelocytes are noted, a manual differential will be performed. Shonda Gran Abs 0.02 0.00 - 0.04 x10(3)/[facility] Blood 07/03/2023 3:07 AM EDT 07/03/2023 3:15 AM EDT Narrative Resulting Agency Comment Spec In Lab Terrence Keating MD HEMATOLOGY ORDERABLE S [facility] [place] [address] * (ABNORMAL) Hemogram (07/03/2023 3:07 AM EDT) WBC 8.2 4.0 - 9.5 x10(3)/[facility] RBC 3.97(L) 4.00 - 5.21 x10(6)/[facility] Hemoglobin 12.5 11.7 - 15.5 g/dL [facility] Hematocrit 38.5 35.7 - 45.8 % [facility] MCV 97.0(H) 82.6 - 94.4 [facility] MCH 31.5 27.1 - 32.0 pg [facility] MCHC 32.5 31.7 - 35.0 g/dL [facility] Platelets 203 145 - 357 x10(3)/[facility] RDWSD 49.6(H) 37.0 - 46.0 [facility] RDWCV 13.7 11.5 - 14.1 % [facility] MPV 10.8 7.6 - 12.9 [facility] nRBC % Auto 0.0 % [facility] nRBC Abs Auto 0.000 0.000 - 0.000 x10(3)/[facility] Blood 07/03/2023 3:07 AM EDT 07/03/2023 3:15 AM EDT Narrative Resulting Agency Comment Spec In Lab Terrence Keating MD HEMATOLOGY ORDERABLE S [facility] [place] [address] * Heparin (unfractionated) Level (07/03/2023 3:07 AM EDT) Pathologist [facility] [place] Heparin UFH Level 0.49 IU/mL [facility] Comment: Heparin (anti-Xa) levels [...] Lab Ailyn Irvin MD HEMATOLOGY ORDERABLE S [facility] [place] [address] * (ABNORMAL) Basic Metabolic Panel (non-fasting) (07/03/2023 3:07 AM EDT) [facility] Glucose Lvl 104 65 - 199 mg/dL [facility] Comment:Diabetes: >=200 mg/d L plus symptoms BUN 16 8 - 18 mg/dL [facility] Creatinine 1.20 0.70 - 1.20 mg/dL [facility] Sodium 138 135 - 145 mmol/L [facility] Potassium 4.2 3.5 - 5.0 mmol/L [facility] Comment: Please note: ??Patients with WBC >100,000 may have falsely elevated Potassium levels. ??For accurate Potassium quantification in these patients send serum separator tube (gold top) for subsequent determinations. ??Contact the Clinical Chemistry Laboratory if there are any questions. Chloride 107 98 - 107 mmol/L [facility] CO2 20(L) 22 - 31 mmol/L [facility] Anion Gap 11 5 - 15 mmol/L [facility] Calcium 8.8 8.5 - 10.5 mg/dL [facility] Estimated GFR 54(L) >=60 mL/min/1. 73 m?? [facility] Comment: This patient's estimated [...] MD CHEMISTRY ORDERABL ES Performing Organization Address [facility] Co de Phone Number [facility] [place] [address] * Phosphorus (07/03/2023 3:07 AM EDT) Phosphorus 3.6 2.5 - 4.5 mg/dL [facility] Blood 07/03/2023 3:07 AM EDT 07/03/2023 3:15 AM EDT Narrative Resulting Agency Comment Spec In Lab Eufemia Copeland MD CHEMISTRY ORDERABL ES Performing Organization Address [facility]/ZIP Co de Phone Number [facility] [place] [address] * Magnesium (07/03/2023 3:07 AM EDT) Magnesium 0.93 0.69 - 1.07 mmol/L [facility] Blood 07/03/2023 3:07 AM EDT 07/03/2023 3:15 AM EDT Narrative Resulting Agency Comment Spec In Lab Eufemia Copeland MD CHEMISTRY ORDERABL ES Performing Organization Address City/[facility]/ZIP Co de Phone Number [facility] [place] [address] * Heparin (unfractionated) Level (07/02/2023 8:58 PM EDT) Heparin UFH Level 0.60 IU/mL [facility] Comment: Heparin (anti-Xa) levels [...] [facility]/ZIP Co de Phone Number [facility] [place] [address] * VS Arteriogram Mesenteric Vascular Surgery (07/02/2023 [...] anesthetic: 10 cc 1% lidocaine Heparin: Yes [address]70 ?? Units Protamine: No ??mg Antibiotics: Ancef [...] We exchanged the sheath for a 7 [place] tourist information assistant steerable sheath over a stiff wire. ??A Glidewire and Kumpe catheter were used to selectively cannulate the superior mesenteric artery. ??Direct angiography of the superior mesenteric artery was performed, confirming the results of the nonselective aortography performed. ??The lesion was predilated with a 4 mm x 40 mm Salineno balloon, and then a 6 mm X [...] 3:58 AM EDT) Neutrophils % 61.3 % [facility] Neutr Abs (ANC) 4.67 1.70 - 6.10 x10(3)/[facility] Lymphocytes % 27.6 % [facility] Lymphocytes Abs 2.1 0.9 - 3.2 x10(3)/[facility] Monocytes % 6.4 % [facility] Monocyte Abs 0.5 0.3 - 0.9 x10(3)/[facility] Eosinophils % 3.9 % [facility] Eosinophils Abs 0.3 0.0 - 0.4 x10(3)/[facility] Basophils % 0.5 % [facility] Basophils Abs 0.0 0.0 - 0.1 x10(3)/[facility] Immature Gran % 0.30 % [facility] Comment: Immature granulocytes(IG's)percentage and absolute count will include metamyelocytes, myelocytes, and promyelocytes. Blood smears from CBCs yielding IG's will be scanned manually for concordance. If this scan disagrees with the automated IG or if promyelocytes are noted, a manual differential will be performed. Shonda Gran Abs 0.02 0.00 - 0.04 x10(3)/[facility] Blood 07/02/2023 3:58 AM EDT 07/02/2023 4:14 AM EDT Narrative Resulting Agency Comment Spec In Lab Terrence Keating MD HEMATOLOGY ORDERABLE S [facility] [place] [address] * (ABNORMAL) Hemogram (07/02/2023 3:58 AM EDT) WBC 7.6 4.0 - 9.5 x10(3)/[facility] LAB[facility] RBC 4.12 4.00 - 5.21 x10(6)/[facility] Hemoglobin 12.9 11.7 - 15.5 g/dL [facility] Hematocrit 39.5 35.7 - 45.8 % [facility] MCV 95.9(H) 82.6 - 94.4 fL [facility] MCH 31.3 27.1 - 32.0 pg [facility] MCHC 32.7 31.7 - 35.0 g/dL [facility] Platelets 200 145 - 357 x10(3)/[facility] RDWSD 47.4(H) 37.0 - 46.0 [facility] RDWCV 13.3 11.5 - 14.1 % [facility] MPV 10.8 7.6 - 12.9 [facility] nRBC % Auto 0.0 % [facility] nRBC Abs Auto 0.000 0.000 - 0.000 x10(3)/[facility] Blood 07/02/2023 3:58 AM EDT 07/02/2023 4:14 AM EDT Narrative Resulting Agency Comment Spec In Lab Terrence Keating MD HEMATOLOGY ORDERABLE S [facility] [place] [address] * Heparin (unfractionated) Level (07/02/2023 3:58 AM EDT) Heparin UFH Level 0.57 IU/mL [facility] Comment: Heparin (anti-Xa) levels [...] Lab Ailyn Irvin MD HEMATOLOGY ORDERABLE S [facility] [place] [address] * (ABNORMAL) Basic Metabolic Panel (non-fasting) (07/02/2023 3:58 AM EDT) Pathologist [facility] [place] Glucose Lvl 96 65 - 199 mg/dL [facility] Comment:Diabetes: >=200 mg/d L plus symptoms BUN 15 8 - 18 mg/dL [facility] Creatinine 1.21(H) 0.70 - 1.20 mg/dL [facility] Sodium 133(L) 135 - 145 mmol/L [facility] Potassium 4.1 3.5 - 5.0 mmol/L [facility] Comment: Please note: ??Patients with WBC >100,000 may have falsely elevated Potassium levels. ??For accurate Potassium quantification in these patients send serum separator tube (gold top) for subsequent determinations. ??Contact the Clinical Chemistry Laboratory if there are any questions. Chloride 104 98 - 107 mmol/L [facility] CO2 21(L) 22 - 31 mmol/L [facility] Anion Gap 8 5 - 15 mmol/L [facility] Calcium 8.8 8.5 - 10.5 mg/dL [facility] Estimated GFR 53(L) >=60 mL/min/1. 73 m?? [facility] Comment: This patient's estimated [...] MD CHEMISTRY ORDERABL ES Performing Organization Address City/[facility]/ZIP Co de Phone Number [facility] [place] [address] * Phosphorus (07/02/2023 3:58 AM EDT) Phosphorus 3.8 2.5 - 4.5 mg/dL [facility] Blood 07/02/2023 3:58 AM EDT 07/02/2023 4:14 AM EDT Narrative Resulting Agency Comment Spec In Lab Eufemia Copeland MD CHEMISTRY ORDERABL ES Performing Organization Address City/[facility]/ZIP Co de Phone Number [facility] [place] [address] * Magnesium (07/02/2023 3:58 AM EDT) Magnesium 0.95 0.69 - 1.07 mmol/L [facility] Blood 07/02/2023 3:58 AM EDT 07/02/2023 4:14 AM EDT Narrative Resulting Agency Comment Spec In Lab Eufemia Copeland MD CHEMISTRY ORDERABL ES Performing Organization Address City/[facility]/ZIP Co de Phone Number [facility] [place] [address] * EKG 12 Lead (07/01/2023 12:08 PM EDT) Ventricular rate 48 BPM MUSE SYSTEM Atrial Rate 48 BPM MUSE SYSTEM P-R Interval 192 ms MUSE SYSTEM QRS Duration 92 ms MUSE SYSTEM Q-T Interval 474 ms MUSE SYSTEM QTC Calculated (Bezet) 423 ms MUSE SYSTEM Calculated P [place] 32 degrees MUSE SYSTEM Calculated R [place] 45 degrees MUSE SYSTEM Calculated T [place] 0 degrees MUSE SYSTEM INTERPRETATION Sinus bradycardia [...] Keating MD ECG ORDERABLES Performing Organization Address City/[facility]/ZIP Co de Phone Number MUSE SYSTEM * Differential, Automated (07/01/2023 2:56 AM EDT) Neutrophils % 50.5 % [facility] Neutr Abs (ANC) 3.47 1.70 - 6.10 x10(3)/[facility] Lymphocytes % 36.5 % [facility] Lymphocytes Abs 2.5 0.9 - 3.2 x10(3)/[facility] Monocytes % 7.7 % [facility] Monocyte Abs 0.5 0.3 - 0.9 x10(3)/[facility] Eosinophils % 4.5 % [facility] Eosinophils Abs 0.3 0.0 - 0.4 x10(3)/[facility] Basophils % 0.7 % [facility] Basophils Abs 0.0 0.0 - 0.1 x10(3)/[facility] Immature Gran % 0.10 % [facility] [facility] Comment: Immature granulocytes(IG's)percentage and absolute count will include metamyelocytes, myelocytes, and promyelocytes. Blood smears from CBCs yielding IG's will be scanned manually for concordance. If this scan disagrees with the automated IG or if promyelocytes are noted, a manual differential will be performed. Shonda Gran Abs 0.01 0.00 - 0.04 x10(3)/[facility] Blood 07/01/2023 2:56 AM EDT 07/01/2023 3:22 AM EDT Narrative Resulting Agency Comment Spec In Lab Terrence Keating MD HEMATOLOGY ORDERABLE S Performing Organization Address City/State/[facility] Co de Phone Number [facility] [place] [address] * (ABNORMAL) Hemogram (07/01/2023 2:56 AM EDT) WBC 6.9 4.0 - 9.5 x10(3)/[facility] LABORATORY RBC 4.04 4.00 - 5.21 x10(6)/[facility] Hemoglobin 12.8 11.7 - 15.5 g/dL [facility] Hematocrit 39.0 35.7 - 45.8 % [facility] MCV 96.5(H) 82.6 - 94.4 fL [facility] MCH 31.7 27.1 - 32.0 pg [facility] MCHC 32.8 31.7 - 35.0 g/dL [facility] Platelets 224 145 - 357 x10(3)/[facility] RDWSD 47.8(H) 37.0 - 46.0 fL [facility] RDWCV 13.3 11.5 - 14.1 % [facility] MPV 11.1 7.6 - 12.9 [facility] LABORATORY nRBC % Auto 0.0 % [facility] nRBC Abs Auto 0.000 0.000 - 0.000 x10(3)/mcL [facility] Blood 07/01/2023 2:56 AM EDT 07/01/2023 3:22 AM EDT Narrative Resulting Agency Comment Spec In Lab Terrence Keating MD HEMATOLOGY ORDERABLE S Performing Organization Address [facility]/ZIP Co de Phone Number [facility] [place] [address] * Heparin (unfractionated) Level (07/01/2023 2:56 AM EDT) Heparin UFH Level 0.56 IU/mL [facility] Comment: Heparin (anti-Xa) levels [...] [facility]/ZIP Co de Phone Number [facility] [place] [address] * (ABNORMAL) Basic Metabolic Panel (non-fasting) (07/01/2023 2:56 AM EDT) Glucose Lvl 95 65 - 199 mg/dL [facility] Comment:Diabetes: >=200 mg/d L plus symptoms BUN 16 8 - 18 mg/dL [facility] Creatinine 1.21(H) 0.70 - 1.20 mg/dL [facility] Sodium 137 135 - 145 mmol/L [facility] Potassium 4.1 3.5 - 5.0 mmol/L [facility] Comment: Please note: ??Patients with WBC >100,000 may have falsely elevated Potassium levels. ??For accurate Potassium quantification in these patients send serum separator tube (gold top) for subsequent determinations. ??Contact the Clinical Chemistry Laboratory if there are any questions. Chloride 105 98 - 107 mmol/L [facility] CO2 22 22 - 31 mmol/L [facility] Anion Gap 10 5 - 15 mmol/L [facility] Calcium 9.0 8.5 - 10.5 mg/dL [facility] Estimated GFR 53(L) >=60 mL/min/1. 73 m?? [facility] Comment: This patient's estimated [...] Lab Eufemia Copeland MD CHEMISTRY ORDERABL ES [facility] [place] [address] * Phosphorus (07/01/2023 2:56 AM EDT) Phosphorus 4.1 2.5 - 4.5 mg/dL [facility] Blood 07/01/2023 2:56 AM EDT 07/01/2023 3:22 AM EDT Narrative Resulting Agency Comment Spec In Lab Eufemia Copeland MD CHEMISTRY ORDERABL ES Performing Organization Address [facility] Co de Phone Number [facility] [place] [address] * Magnesium (07/01/2023 2:56 AM EDT) Magnesium 0.95 0.69 - 1.07 mmol/L [facility] Blood 07/01/2023 2:56 AM EDT 07/01/2023 3:22 AM EDT Narrative Resulting Agency Comment Spec In Lab Eufemia Copeland MD CHEMISTRY ORDERABL ES Performing Organization Address [facility] Co de Phone Number [facility] [place] [address] * Heparin (unfractionated) Level (06/30/2023 9:24 AM EDT) Heparin UFH Level 0.62 IU/mL [facility] Comment: Heparin (anti-Xa) levels [...] Lab Ailyn Irvin MD HEMATOLOGY ORDERABLE S [facility] [place] [address] * Differential, Automated (06/30/2023 3:14 AM EDT) Neutrophils % 49.5 % [facility] Neutr Abs (ANC) 3.96 1.70 - 6.10 x10(3)/[facility] LABOR[facility] Lymphocytes % 36.6 % [facility] Lymphocytes Abs 2.9 0.9 - 3.2 x10(3)/[facility] Monocytes % 8.6 % [facility] Monocyte Abs 0.7 0.3 - 0.9 x10(3)/[facility] Eosinophils % 4.1 % [facility] Eosinophils Abs 0.3 0.0 - 0.4 x10(3)/[facility] Basophils % 0.8 % [facility] Basophils Abs 0.1 0.0 - 0.1 x10(3)/[facility] LABORATORY Immature Gran % 0.40 % [facility] Comment: Immature granulocytes(IG's)percentage and absolute count will include metamyelocytes, myelocytes, and promyelocytes. Blood smears from CBCs yielding IG's will be scanned manually for concordance. If this scan disagrees with the automated IG or if promyelocytes are noted, a manual differential will be performed. Shonda Gran Abs 0.03 0.00 - 0.04 x10(3)/[facility] Blood 06/30/2023 3:14 AM EDT 06/30/2023 3:23 AM EDT Narrative Resulting Agency Comment Spec In Lab Terrence Keating MD HEMATOLOGY ORDERABLE S [facility] [place] [address] * Hemogram (06/30/2023 3:14 AM EDT) WBC 8.0 4.0 - 9.5 x10(3)/[facility] LABORATORY RBC 4.22 4.00 - 5.21 x10(6)/[facility] Hemoglobin 13.1 11.7 - 15.5 g/dL [facility] Hematocrit 39.5 35.7 - 45.8 % [facility] MCV 93.6 82.6 - 94.4 [facility] MCH 31.0 27.1 - 32.0 pg [facility] MCHC 33.2 31.7 - 35.0 g/dL [facility] Platelets 235 145 - 357 x10(3)/[facility] RDWSD 45.3 37.0 - 46.0 [facility] RDWCV 13.3 11.5 - 14.1 % [facility] MPV 11.0 7.6 - 12.9 [facility] nRBC % Auto 0.0 % [facility] nRBC Abs Auto 0.000 0.000 - 0.000 x10(3)/[facility] Blood 06/30/2023 3:14 AM EDT 06/30/2023 3:23 AM EDT Narrative Resulting Agency Comment Spec In Lab Terrence Keating MD HEMATOLOGY ORDERABLE S [facility] [place] [address] * Heparin (unfractionated) Level (06/30/2023 3:14 AM EDT) Pathologist [facility] Heparin UFH Level 0.70 IU/mL [facility] Comment: Heparin (anti-Xa) levels [...] Lab Terrence Keating MD HEMATOLOGY ORDERABLE S [facility] [place] [address] * (ABNORMAL) Basic Metabolic Panel (non-fasting) (06/30/2023 3:14 AM EDT) Glucose Lvl 103 65 - 199 mg/dL [facility] Comment:Diabetes: >=200 mg/d L plus symptoms BUN 18 8 - 18 mg/dL [facility] Creatinine 1.22(H) 0.70 - 1.20 mg/dL [facility] Sodium 137 135 - 145 mmol/L [facility] Potassium 3.8 3.5 - 5.0 mmol/L [facility] Comment: Please note: ??Patients with WBC >100,000 may have falsely elevated Potassium levels. ??For accurate Potassium quantification in these patients send serum separator tube (gold top) for subsequent determinations. ??Contact the Clinical Chemistry Laboratory if there are any questions. Chloride 104 98 - 107 mmol/L [facility] CO2 23 22 - 31 mmol/L [facility] Anion Gap 10 5 - 15 mmol/L [facility] Calcium 9.1 8.5 - 10.5 mg/dL [facility] Estimated GFR 53(L) >=60 mL/min/1. 73 m?? [facility] Comment: This patient's estimated [...] MD CHEMISTRY ORDERABL ES Performing Organization Address [facility] Co de Phone Number [facility] [place] [address] * Phosphorus (06/30/2023 3:14 AM EDT) Phosphorus 4.4 2.5 - 4.5 mg/dL [facility] Blood 06/30/2023 3:14 AM EDT 06/30/2023 3:23 AM EDT Narrative Resulting Agency Comment Spec In Lab Eufemia Copeland MD CHEMISTRY ORDERABL ES [facility] [place] [address] * Magnesium (06/30/2023 3:14 AM EDT) Magnesium 0.94 0.69 - 1.07 mmol/L [facility] Blood 06/30/2023 3:14 AM EDT 06/30/2023 3:23 AM EDT Narrative Resulting Agency Comment Spec In Lab Eufemia Copeland MD CHEMISTRY ORDERABL ES Performing Organization Address [facility]/ZIP Co de Phone Number [facility] [place] [address] * Heparin (unfractionated) Level (06/29/2023 8:47 PM EDT) [facility] Heparin UFH Level 0.75 IU/mL [facility] Comment: Heparin (anti-Xa) levels [...] MD HEMATOLOGY ORDERABLE S Performing Organization Address [facility]/ZIP Co de Phone Number [facility] [place] [address] * EKG 12 Lead (06/29/2023 12:55 PM EDT) [facility] Ventricular rate 53 BPM MUSE SYSTEM Atrial Rate 53 BPM MUSE SYSTEM P-R Interval 196 ms MUSE SYSTEM QRS Duration 90 ms MUSE SYSTEM Q-T Interval 564 ms MUSE SYSTEM QTC Calculated (Bezet) 529 ms MUSE SYSTEM Calculated P [place] 30 degrees MUSE SYSTEM Calculated R [place] 53 degrees MUSE SYSTEM Calculated T [place] 5 degrees MUSE SYSTEM INTERPRETATION Sinus bradycardia Marked ST abnormality, possible inferior subendocardial injury Prolonged QT Abnormal ECG When compared with ECG of 26-JUN-2023 06:04, Nonspecific T wave abnormality no longer evident in Anterolateral leads QT has lengthened Confirmed by MD Angelo Danette ([id number]) on 06/29/2023 8:34:43 PM MUSE SYSTEM 06/29/2023 12:5 5 PM EDT 06/29/2023 8:34 PM EDT Terrence Keating MD ECG ORDERABLES Performing Organization Address City/[facility]/ZIP Co de Phone Number MUSE SYSTEM * (ABNORMAL) Heparin (unfractionated) Level (06/29/2023 11:34 AM EDT) Heparin UFH Level 1.41(Crit ical) IU/mL [facility] Comment: Critical Result called [...] Lab Ailyn Irvin MD HEMATOLOGY ORDERABLE S [facility] [place] [address] * Differential, Automated (06/29/2023 2:39 AM EDT) Neutrophils % 53.8 % [facility] Neutr Abs (ANC) 4.46 1.70 - 6.10 x10(3)/mcL [facility] Lymphocytes % 33.5 % [facility] Lymphocytes Abs 2.8 0.9 - 3.2 x10(3)/[facility] LABORAT[facility] Monocytes % 8.3 % [facility] Monocyte Abs 0.7 0.3 - 0.9 x10(3)/[facility] LAB[facility]AT[facility] Eosinophils % 3.5 % [facility] Eosinophils Abs 0.3 0.0 - 0.4 x10(3)/[facility] LAB[facility] Basophils % 0.5 % [facility] Basophils Abs 0.0 0.0 - 0.1 x10(3)/[facility] LABORATORY Immature Gran % 0.40 % [facility] Comment: Immature granulocytes(IG's)percentage and absolute count will include metamyelocytes, myelocytes, and promyelocytes. Blood smears from CBCs yielding IG's will be scanned manually for concordance. If this scan disagrees with the automated IG or if promyelocytes are noted, a manual differential will be performed. Shonda Gran Abs 0.03 0.00 - 0.04 x10(3)/[facility] Blood 06/29/2023 2:39 AM EDT 06/29/2023 3:33 AM EDT Narrative Resulting Agency Comment Spec In Lab Terrence Keating MD HEMATOLOGY ORDERABLE S [facility] [place] [address] * Hemogram (06/29/2023 2:39 AM EDT) WBC 8.3 4.0 - 9.5 x10(3)/[facility] LABORATORY RBC 4.19 4.00 - 5.21 x10(6)/[facility] Hemoglobin 13.2 11.7 - 15.5 g/dL [facility] Hematocrit 38.9 35.7 - 45.8 % [facility] MCV 92.8 82.6 - 94.4 [facility] MCH 31.5 27.1 - 32.0 pg [facility] MCHC 33.9 31.7 - 35.0 g/dL [facility] Platelets 237 145 - 357 x10(3)/[facility] LAB[facility]AT[facility] RDWSD 45.3 37.0 - 46.0 [facility] RDWCV 13.3 11.5 - 14.1 % [facility] MPV 11.4 7.6 - 12.9 [facility] nRBC % Auto 0.0 % [facility] nRBC Abs Auto 0.000 0.000 - 0.000 x10(3)/[facility] LAB[facility] Blood 06/29/2023 2:39 AM EDT 06/29/2023 3:33 AM EDT Narrative Resulting Agency Comment Spec In Lab Terrence Keating MD HEMATOLOGY ORDERABLE S [facility] [place] [id number] * (ABNORMAL) Heparin (unfractionated) Level (06/29/2023 2:39 AM EDT) Heparin UFH Level 1.77(Crit ical) IU/mL [facility] Comment: Specimen drawn more than one hour prior to testing. Results may not be reliable for heparin monitoring. Result may be falsely low. Critical Result called by ?? [facility] Results read back by: ? Guilherme [...] Lab Ailyn Irvin MD HEMATOLOGY ORDERABLE S [facility] [place] [address] * (ABNORMAL) Basic Metabolic Panel (non-fasting) (06/29/2023 2:39 AM EDT) Glucose Lvl 100 65 - 199 mg/dL [facility] Comment:Diabetes: >=200 mg/d L plus symptoms BUN 21(H) 8 - 18 mg/dL [facility] Creatinine 1.17 0.70 - 1.20 mg/dL [facility] Sodium 138 135 - 145 mmol/L [facility] Potassium 3.9 3.5 - 5.0 mmol/L [facility] Comment: Please note: ??Patients with WBC >100,000 may have falsely elevated Potassium levels. ??For accurate Potassium quantification in these patients send serum separator tube (gold top) for subsequent determinations. ??Contact the Clinical Chemistry Laboratory if there are any questions. Chloride 105 98 - 107 mmol/L [facility] CO2 22 22 - 31 mmol/L [facility] Anion Gap 11 5 - 15 mmol/L [facility] Calcium 9.1 8.5 - 10.5 mg/dL [facility] Estimated GFR 55(L) >=60 mL/min/1. 73 m?? [facility] Comment: This patient's estimated [...] MD CHEMISTRY ORDERABL ES Performing Organization Address [facility] Co de Phone Number [facility] [place] [address] * Phosphorus (06/29/2023 2:39 AM EDT) Phosphorus 4.0 2.5 - 4.5 mg/dL [facility] Blood 06/29/2023 2:39 AM EDT 06/29/2023 3:33 AM EDT Narrative Resulting Agency Comment Spec In Lab Eufemia Copeland MD CHEMISTRY ORDERABL ES Performing Organization Address [facility] [place] [address] * Magnesium (06/29/2023 2:39 AM EDT) Magnesium 0.92 0.69 - 1.07 mmol/L [facility] Blood 06/29/2023 2:39 AM EDT 06/29/2023 3:33 AM EDT Narrative Resulting Agency Comment Spec In Lab Eufemia Copeland MD CHEMISTRY ORDERABL ES Performing Organization Address [facility] Co de Phone Number [facility] [place] [address] * US Abdomen Limited (06/28/2023 12:22 PM EDT) WORKSTATION ID [id number] RAD Anatomical Region Laterality Modality Abdomen Ultrasound [...] who have questions, please contact the health care provider that requested your imaging first. ?Sigrid Owens, E Health Assessment And Treatment Teacher Electronically Signed Final Report ?? 06/28/2023 02:08 pm Narrative 06/28/2023 2:08 PM EDT Abdominal ? (Signed Final 06/28/2023 02:08 pm) PATIENT INFO: ID #: ? [id number] ?: ??[birth year] (53 yrs)(F) Name: ? LOIDA ?Visit Date: 06/28/2023 12:20 pm ? ROHAN PERFORMED BY: Attending: ?Graciela JOHN, Sigrid Munoz Resident: ? Karo JOHN, Rafaela Performed By: ? Rick STANFORD, ??Deena Referred By: ?AILYN Willis ROBERTCLAUDETTE Location: ? [facility] SERVICE(S) PROVIDED: UABDLIM - Abdominal Limited Survey Single ? 53726 Organ or Quadrant - [id number] INDICATIONS: RUQ pain, R/o Gall bladder colic, [...] 06/28/2023 02:08 pm) PATIENT INFO: ID #: [id number] : [birth year] (53 yrs)(F) Name: LOIDA Visit Date: 06/28/2023 12:20 pm ROHAN PERFORMED BY: Attending: Sigrid Owens MD Resident: Rafaela Huddleston MD Performed By: Deena Cabrera RDMS Referred By: AILYN IRVNI Location: [facility] SERVICE(S) PROVIDED: UABDLIM - Abdominal Limited Survey Single 37041 Organ or Quadrant - [id number] INDICATIONS: RUQ pain, R/o Gall bladder colic, [...] who have questions, please contact the health care provider that requested your imaging first. Sigrid Owens, E Health Assessment And Treatment Teacher Electronically Signed Final Report 06/28/2023 02:08 pm Ailyn Irvin MD IMG US GEN ORDERABLE S * Duplex Study Visceral Arteries, Comp (06/28/2023 10:19 AM EDT) VB Text Report Department: Vascular Surgery Lab Patient: [id number] (LOIDA ROQUE) CPT: 80112 Referring Physician: HEIDY SULLIVAN ?? Indications: abdominal pain, ? patency/stenosi s Findings: Unilateral ? Waveform ? PSV cm/s ??EDV cm/s ??Patent ?? Dary Visceral Aorta ? 80 ?16 ? Celiac Artery, Proximal ??[place]-Biphasic ? 119 ?26 ? Celiac Artery, Mid ? [place]-Biphasic ? 115 ?21 ? Celiac Artery, Distal ? No Vis ?? Sup Mes Artery Proximal ??Biphasic ?427 ?91 ? Sup Mes Artery Middle ?[place]-Biphasic ? 100 ?17 ? Sup Mes Artery Distal ?[place]-Biphasic ?64 ?15 ? Hepatic Artery ?No Vis [...] 1:52 AM EDT) Neutrophils % 55.3 % [facility] Neutr Abs (ANC) 4.46 1.70 - 6.10 x10(3)/[facility] LAB[facility] Lymphocytes % 30.6 % [facility] Lymphocytes Abs 2.5 0.9 - 3.2 x10(3)/[facility] Monocytes % 8.8 % [facility] Monocyte Abs 0.7 0.3 - 0.9 x10(3)/[facility] Eosinophils % 4.6 % [facility] Eosinophils Abs 0.4 0.0 - 0.4 x10(3)/[facility] Basophils % 0.5 % [facility] Basophils Abs 0.0 0.0 - 0.1 x10(3)/[facility] LABORAT[facility] Immature Gran % 0.20 % [facility] Comment: Immature granulocytes(IG's)percentage and absolute count will include metamyelocytes, myelocytes, and promyelocytes. Blood smears from CBCs yielding IG's will be scanned manually for concordance. If this scan disagrees with the automated IG or if promyelocytes are noted, a manual differential will be performed. Shonda Gran Abs 0.02 0.00 - 0.04 x10(3)/[facility] Blood 06/28/2023 1:52 AM EDT 06/28/2023 2:05 AM EDT Narrative Resulting Agency Comment Spec In Lab Terrence Keating MD HEMATOLOGY ORDERABLE S [facility] [place] [address] * Hemogram (06/28/2023 1:52 AM EDT) [facility] WBC 8.1 4.0 - 9.5 x10(3)/[facility] RBC 4.30 4.00 - 5.21 x10(6)/[facility] Hemoglobin 13.4 11.7 - 15.5 g/dL [facility] Hematocrit 40.6 35.7 - 45.8 % [facility] MCV 94.4 82.6 - 94.4 fL [facility] MCH 31.2 27.1 - 32.0 pg [facility] MCHC 33.0 31.7 - 35.0 g/dL [facility] Platelets 238 145 - 357 x10(3)/[facility] RDWSD 45.7 37.0 - 46.0 [facility] RDWCV 13.2 11.5 - 14.1 % [facility] MPV 10.8 7.6 - 12.9 [facility] nRBC % Auto 0.0 % [facility] nRBC Abs Auto 0.000 0.000 - 0.000 x10(3)/[facility] Blood 06/28/2023 1:52 AM EDT 06/28/2023 2:05 AM EDT Narrative Resulting Agency Comment Spec In Lab Terrence Keating MD HEMATOLOGY ORDERABLE S [facility] [place] [address] * (ABNORMAL) Basic Metabolic Panel (non-fasting) (06/28/2023 1:52 AM EDT) [facility] Glucose Lvl 101 65 - 199 mg/dL [facility] Comment:Diabetes: >=200 mg/d L plus symptoms BUN 24(H) 8 - 18 mg/dL [facility] Creatinine 1.21(H) 0.70 - 1.20 mg/dL [facility] Sodium 138 135 - 145 mmol/L [facility] Potassium 4.0 3.5 - 5.0 mmol/L [facility] Comment: Please note: ??Patients with WBC >100,000 may have falsely elevated Potassium levels. ??For accurate Potassium quantification in these patients send serum separator tube (gold top) for subsequent determinations. ??Contact the Clinical Chemistry Laboratory if there are any questions. Chloride 105 98 - 107 mmol/L [facility] CO2 21(L) 22 - 31 mmol/L [facility] Anion Gap 12 5 - 15 mmol/L [facility] Calcium 9.0 8.5 - 10.5 mg/dL [facility] Estimated GFR 53(L) >=60 mL/min/1. 73 m?? [facility] Comment: This patient's estimated [...] Lab Eufemia Copeland MD CHEMISTRY ORDERABL ES [facility] [place] [address] * Phosphorus (06/28/2023 1:52 AM EDT) Phosphorus 4.5 2.5 - 4.5 mg/dL [facility] Blood 06/28/2023 1:52 AM EDT 06/28/2023 2:05 AM EDT Narrative Resulting Agency Comment Spec In Lab Eufemia Copeland MD CHEMISTRY ORDERABL ES Performing Organization Address [facility] Co de Phone Number [facility] [place] [address] * Magnesium (06/28/2023 1:52 AM EDT) Magnesium 0.93 0.69 - 1.07 mmol/L [facility] Blood 06/28/2023 1:52 AM EDT 06/28/2023 2:05 AM EDT Narrative Resulting Agency Comment Spec In Lab Eufemia Copeland MD CHEMISTRY ORDERABL ES Performing Organization Address [facility] Co de Phone Number [facility] [place] [address] * (ABNORMAL) Basic Metabolic Panel (non-fasting) (06/27/2023 8:06 PM EDT) Glucose Lvl 94 65 - 199 mg/dL [facility] Comment:Diabetes: >=200 mg/d L plus symptoms BUN 24(H) 8 - 18 mg/dL [facility] [facility] Creatinine 1.28(H) 0.70 - 1.20 mg/dL [facility] Sodium 141 135 - 145 mmol/L [facility] Potassium 4.3 3.5 - 5.0 mmol/L [facility] Comment: Please note: ??Patients with WBC >100,000 may have falsely elevated Potassium levels. ??For accurate Potassium quantification in these patients send serum separator tube (gold top) for subsequent determinations. ??Contact the Clinical Chemistry Laboratory if there are any questions. Chloride 106 98 - 107 mmol/L [facility] CO2 24 22 - 31 mmol/L [facility] Anion Gap 11 5 - 15 mmol/L [facility] Calcium 9.3 8.5 - 10.5 mg/dL [facility] Estimated GFR 50(L) >=60 mL/min/1. 73 m?? [facility] Comment: This patient's estimated [...] In Lab Ailyn Irvin MD CHEMISTRY ORDERABLES [facility] [place] [address] * (ABNORMAL) Hepatic Function Panel (06/27/2023 4:34 AM EDT) Total Protein 6.4 6.1 - 8.0 g/dL [facility] Albumin 3.8 3.2 - 5.2 g/dL [facility] AST 21 0 - 30 unit/L [facility] ALT 22 0 - 30 unit/L [facility] Alk Phos 56 35 - 105 unit/L [facility] Total Bilirubin <0.2(L) 0.2 - 1.3 mg/dL [facility] Bili, Direct <0.1 0.0 - 0.3 mg/dL [facility] Blood Venous Draw / Unknown 06/27/2023 4:34 AM EDT 06/27/2023 4:53 AM EDT Narrative Resulting Agency Comment Spec In Lab Ailyn Irvin MD CHEMISTRY ORDERABLES Performing Organization Address City/[facility]/ZIP Co de Phone Number [facility] [place] [address] * Differential, Automated (06/27/2023 4:34 AM EDT) Neutrophils % 52.7 % [facility] Neutr Abs (ANC) 4.01 1.70 - 6.10 x10(3)/[facility] Lymphocytes % 33.8 % [facility] Lymphocytes Abs 2.6 0.9 - 3.2 x10(3)/[facility] Monocytes % 8.8 % [facility] Monocyte Abs 0.7 0.3 - 0.9 x10(3)/[facility] Eosinophils % 3.8 % [facility] Eosinophils Abs 0.3 0.0 - 0.4 x10(3)/[facility] Basophils % 0.5 % [facility] Basophils Abs 0.0 0.0 - 0.1 x10(3)/[facility] Immature Gran % 0.40 % [facility] Comment: Immature granulocytes(IG's)percentage and absolute count will include metamyelocytes, myelocytes, and promyelocytes. Blood smears from CBCs yielding IG's will be scanned manually for concordance. If this scan disagrees with the automated IG or if promyelocytes are noted, a manual differential will be performed. Shonda Gran Abs 0.03 0.00 - 0.04 x10(3)/[facility] Blood 06/27/2023 4:34 AM EDT 06/27/2023 4:51 AM EDT Narrative Resulting Agency Comment Spec In Lab Terrence Keating MD HEMATOLOGY ORDERABLE S Performing Organization Address City/[facility]/ZIP Co de Phone Number [facility] [place] [address] * Hemogram (06/27/2023 4:34 AM EDT) [facility] WBC 7.6 4.0 - 9.5 x10(3)/[facility] RBC 4.15 4.00 - 5.21 x10(6)/[facility] Hemoglobin 12.9 11.7 - 15.5 g/dL [facility] Hematocrit 39.0 35.7 - 45.8 % [facility] MCV 94.0 82.6 - 94.4 [facility] MCH 31.1 27.1 - 32.0 pg [facility] MCHC 33.1 31.7 - 35.0 g/dL [facility] Platelets 245 145 - 357 x10(3)/[facility] RDWSD 45.2 37.0 - 46.0 [facility] RDWCV 13.2 11.5 - 14.1 % [facility] MPV 11.2 7.6 - 12.9 [facility] nRBC % Auto 0.0 % [facility] nRBC Abs Auto 0.000 0.000 - 0.000 x10(3)/[facility] Blood 06/27/2023 4:34 AM EDT 06/27/2023 4:51 AM EDT Narrative Resulting Agency Comment Spec In Lab Terrence Keating MD HEMATOLOGY ORDERABLE S [facility] [place] [address] * (ABNORMAL) Basic Metabolic Panel (non-fasting) (06/27/2023 4:34 AM EDT) [facility] Glucose Lvl 99 65 - 199 mg/dL [facility] Comment:Diabetes: >=200 mg/d L plus symptoms BUN 26(H) 8 - 18 mg/dL [facility] Creatinine 1.22(H) 0.70 - 1.20 mg/dL [facility] Sodium 138 135 - 145 mmol/L [facility] Potassium 3.9 3.5 - 5.0 mmol/L [facility] Comment: Please note: ??Patients with WBC >100,000 may have falsely elevated Potassium levels. ??For accurate Potassium quantification in these patients send serum separator tube (gold top) for subsequent determinations. ??Contact the Clinical Chemistry Laboratory if there are any questions. Chloride 105 98 - 107 mmol/L [facility] CO2 22 22 - 31 mmol/L [facility] Anion Gap 11 5 - 15 mmol/L [facility] Calcium 9.1 8.5 - 10.5 mg/dL [facility] Estimated GFR 53(L) >=60 mL/min/1. 73 m?? [facility] Comment: This patient's estimated [...] Lab Eufemia Copeland MD CHEMISTRY ORDERABL ES [facility] [place] [address] * (ABNORMAL) Phosphorus (06/27/2023 4:34 AM EDT) Phosphorus 4.7(H) 2.5 - 4.5 mg/dL [facility] Blood 06/27/2023 4:34 AM EDT 06/27/2023 4:51 AM EDT Narrative Resulting Agency Comment Spec In Lab Eufemia Copeland MD CHEMISTRY ORDERABL ES Performing Organization Address City/[facility]/ZIP Co de Phone Number [facility] [place] [address] * Magnesium (06/27/2023 4:34 AM EDT) Pathologist [facility] [place] Magnesium 0.90 0.69 - 1.07 mmol/L [facility] Blood 06/27/2023 4:34 AM EDT 06/27/2023 4:51 AM EDT Narrative Resulting Agency Comment Spec In Lab Eufemia Copeland MD CHEMISTRY ORDERABL ES Performing Organization Address [facility] Co de Phone Number [facility] [place] [address] * (ABNORMAL) Basic Metabolic Panel (non-fasting) (06/26/2023 4:58 PM EDT) Pathologist [facility] [place] Glucose Lvl 106 65 - 199 mg/dL [facility] Comment:Diabetes: >=200 mg/d L plus symptoms BUN 24(H) 8 - 18 mg/dL [facility] Creatinine 1.23(H) 0.70 - 1.20 mg/dL [facility] Sodium 138 135 - 145 mmol/L [facility] Potassium 4.2 3.5 - 5.0 mmol/L [facility] Comment: Please note: ??Patients with WBC >100,000 may have falsely elevated Potassium levels. ??For accurate Potassium quantification in these patients send serum separator tube (gold top) for subsequent determinations. ??Contact the Clinical Chemistry Laboratory if there are any questions. Chloride 104 98 - 107 mmol/L [facility] CO2 21(L) 22 - 31 mmol/L [facility] Anion Gap 13 5 - 15 mmol/L [facility] Calcium 9.1 8.5 - 10.5 mg/dL [facility] Estimated GFR 52(L) >=60 mL/min/1. 73 m?? [facility] Comment: This patient's estimated [...] Irvin MD CHEMISTRY ORDERABLES Performing Organization Address City/[facility]/ZIP Co de Phone Number [facility] [place] [address] * Urinalysis Microscopic Exam (06/26/2023 11:09 AM EDT) RBC UA 0 0 - 4 /HPF [facility] WBC UA 3 0 - 5 /HPF [facility] Squam Epith UA 1 <=4 /HPF [facility] Hyaline Cast UA 1 0 - 2 /LPF [facility] Clean Catch Urine 06/26/2023 11:09 AM EDT 06/26/2023 5:45 PM EDT Narrative Resulting Agency Comment Spec In Lab Ailyn Irvin MD URINE ORDERABLES Performing Organization Address City/[facility]/ZIP Co de Phone Number [facility] [place] [address] * (ABNORMAL) Urinalysis with reflex Culture (06/26/2023 11:09 AM EDT) Glucose UA Negative Negative mg/dL [facility] Protein UA Negative Negative mg/dL [facility] Bilirubin UA Negative Negative mg/dL [facility] Comment: Clinical correlation required for positive Urine Bilirubin results as false positive may occur with some drugs and drug related products. If a false positive is suspected a serum total bilirubin should be considered if clinically indicated. Urobilinogen UA Normal Normal mg/dL [facility] pH UA 6.0 5.0 - 8.0 [facility] Blood UA Negative Negative mg/dL [facility] Ketones UA Negative Negative mg/dL [facility] Nitrite UA Negative Negative [facility] Leukocytes UA Trace(A) Negative [facility] Appearance UA Clear Clear [facility] Spec [place] UA 1.013 1.005 - 1.030 [facility] Color UA Yellow Yellow [facility] Culture Reflexed No [facility] Clean Catch Urine 06/26/2023 11:09 AM EDT 06/26/2023 5:45 PM EDT Narrative Resulting Agency Comment Spec In Lab Ailyn Irvin MD URINE ORDERABLES [facility] [place] [address] * EKG 12 Lead (06/26/2023 6:04 AM EDT) Ventricular rate 46 BPM MUSE SYSTEM Atrial Rate 46 BPM MUSE SYSTEM P-R Interval 204 ms MUSE SYSTEM QRS Duration 90 ms MUSE SYSTEM Q-T Interval 466 ms MUSE SYSTEM QTC Calculated (Bezet) 407 ms MUSE SYSTEM Calculated P [place] 38 degrees MUSE SYSTEM Calculated R [place] 48 degrees MUSE SYSTEM Calculated T [place] 13 degrees MUSE SYSTEM INTERPRETATION Sinus bradycardia Nonspecific ST and T wave abnormality Abnormal ECG When compared with ECG of 23-JUN-2023 09:54, No significant change was found Confirmed by MD Dalia, Willy Huerta ([id number]) on 06/29/2023 6:09:20 AM MUSE SYSTEM 06/26/2023 6:04 AM EDT 06/29/2023 6:09 AM EDT Eufemia Copeland MD ECG ORDERABLES MUSE SYSTEM * Differential, Automated (06/26/2023 4:06 AM EDT) Neutrophils % 55.3 % [facility] Neutr Abs (ANC) 4.63 1.70 - 6.10 x10(3)/[facility] Lymphocytes % 32.6 % [facility] Lymphocytes Abs 2.7 0.9 - 3.2 x10(3)/[facility] Monocytes % 8.2 % [facility] Monocyte Abs 0.7 0.3 - 0.9 x10(3)/[facility] Eosinophils % 3.2 % [facility] Eosinophils Abs 0.3 0.0 - 0.4 x10(3)/[facility] Basophils % 0.5 % [facility] Basophils Abs 0.0 0.0 - 0.1 x10(3)/[facility] Immature Gran % 0.20 % [facility] Comment: Immature granulocytes(IG's)percentage and absolute count will include metamyelocytes, myelocytes, and promyelocytes. Blood smears from CBCs yielding IG's will be scanned manually for concordance. If this scan disagrees with the automated IG or if promyelocytes are noted, a manual differential will be performed. Shonda Gran Abs 0.02 0.00 - 0.04 x10(3)/[facility] Blood 06/26/2023 4:06 AM EDT 06/26/2023 4:18 AM EDT Narrative Resulting Agency Comment Spec In Lab Terrence Keating MD HEMATOLOGY ORDERABLE S [facility] [place] [address] * (ABNORMAL) Hemogram (06/26/2023 4:06 AM EDT) Pathologist [facility] [place] WBC 8.4 4.0 - 9.5 x10(3)/[facility] RBC 4.52 4.00 - 5.21 x10(6)/[facility] Hemoglobin 14.0 11.7 - 15.5 g/dL [facility] Hematocrit 43.6 35.7 - 45.8 % [facility] MCV 96.5(H) 82.6 - 94.4 fL [facility] MCH 31.0 27.1 - 32.0 pg [facility] MCHC 32.1 31.7 - 35.0 g/dL [facility] Platelets 258 145 - 357 x10(3)/[facility] RDWSD 46.7(H) 37.0 - 46.0 [facility] RDWCV 13.2 11.5 - 14.1 % [facility] MPV 11.1 7.6 - 12.9 [facility] nRBC % Auto 0.0 % [facility] nRBC Abs Auto 0.000 0.000 - 0.000 x10(3)/[facility] Blood 06/26/2023 4:06 AM EDT 06/26/2023 4:18 AM EDT Narrative Resulting Agency Comment Spec In Lab Terrence Keating MD HEMATOLOGY ORDERABLE S [facility] [place] [address] * (ABNORMAL) Basic Metabolic Panel (non-fasting) (06/26/2023 4:06 AM EDT) Pathologist [facility] [place] Glucose Lvl 100 65 - 199 mg/dL [facility] Comment:Diabetes: >=200 mg/d L plus symptoms BUN 25(H) 8 - 18 mg/dL [facility] Creatinine 1.24(H) 0.70 - 1.20 mg/dL [facility] Sodium 135 135 - 145 mmol/L [facility] Potassium 4.2 3.5 - 5.0 mmol/L [facility] Comment: Please note: ??Patients with WBC >100,000 may have falsely elevated Potassium levels. ??For accurate Potassium quantification in these patients send serum separator tube (gold top) for subsequent determinations. ??Contact the Clinical Chemistry Laboratory if there are any questions. Chloride 104 98 - 107 mmol/L [facility] CO2 19(L) 22 - 31 mmol/L [facility] Anion Gap 12 5 - 15 mmol/L [facility] Calcium 9.6 8.5 - 10.5 mg/dL [facility] Estimated GFR 52(L) >=60 mL/min/1. 73 m?? [facility] Comment: This patient's estimated [...] Lab Eufemia Copeland MD CHEMISTRY ORDERABL ES [facility] [place] [address] * Phosphorus (06/26/2023 4:06 AM EDT) Phosphorus 4.3 2.5 - 4.5 mg/dL [facility] Blood 06/26/2023 4:06 AM EDT 06/26/2023 4:18 AM EDT Narrative Resulting Agency Comment Spec In Lab Eufemia Copeland MD CHEMISTRY ORDERABL ES Performing Organization Address City/[facility]/ZIP Co de Phone Number [facility] [place] [address] * Magnesium (06/26/2023 4:06 AM EDT) Pathologist [facility] [place] Magnesium 0.96 0.69 - 1.07 mmol/L [facility] Blood 06/26/2023 4:06 AM EDT 06/26/2023 4:18 AM EDT Narrative Resulting Agency Comment Spec In Lab Eufemia Copeland MD CHEMISTRY ORDERABL ES Performing Organization Address [facility] de Phone Number [facility] [place] [address] * Differential, Automated (06/25/2023 1:50 AM EDT) [facility] Neutrophils % 56.2 % [facility] Neutr Abs (ANC) 4.06 1.70 - 6.10 x10(3)/[facility] Lymphocytes % 30.5 % [facility] Lymphocytes Abs 2.2 0.9 - 3.2 x10(3)/[facility] Monocytes % 8.7 % [facility] Monocyte Abs 0.6 0.3 - 0.9 x10(3)/[facility] Eosinophils % 3.9 % [facility] Eosinophils Abs 0.3 0.0 - 0.4 x10(3)/[facility] Basophils % 0.6 % [facility] Basophils Abs 0.0 0.0 - 0.1 x10(3)/[facility] Immature Gran % 0.10 % [facility] Comment: Immature granulocytes(IG's)percentage and absolute count will include metamyelocytes, myelocytes, and promyelocytes. Blood smears from CBCs yielding IG's will be scanned manually for concordance. If this scan disagrees with the automated IG or if promyelocytes are noted, a manual differential will be performed. Shonda Gran Abs 0.01 0.00 - 0.04 x10(3)/[facility] Blood 06/25/2023 1:50 AM EDT 06/25/2023 2:16 AM EDT Narrative Resulting Agency Comment Spec In Lab Terrence Keating MD HEMATOLOGY ORDERABLE S [facility] [place] [address] * Hemogram (06/25/2023 1:50 AM EDT) WBC 7.2 4.0 - 9.5 x10(3)/[facility] RBC 4.57 4.00 - 5.21 x10(6)/[facility] Hemoglobin 14.4 11.7 - 15.5 g/dL [facility] Hematocrit 42.9 35.7 - 45.8 % [facility] MCV 93.9 82.6 - 94.4 fL [facility] MCH 31.5 27.1 - 32.0 pg [facility] MCHC 33.6 31.7 - 35.0 g/dL [facility] Platelets 241 145 - 357 x10(3)/[facility] RDWSD 44.7 37.0 - 46.0 fL [facility] RDWCV 13.2 11.5 - 14.1 % [facility] MPV 11.5 7.6 - 12.9 fL [facility] nRBC % Auto 0.0 % [facility] nRBC Abs Auto 0.000 0.000 - 0.000 x10(3)/[facility] Blood 06/25/2023 1:50 AM EDT 06/25/2023 2:16 AM EDT Narrative Resulting Agency Comment Spec In Lab Terrence Keating MD HEMATOLOGY ORDERABLE S [facility] [place] [address] * (ABNORMAL) Basic Metabolic Panel (non-fasting) (06/25/2023 1:50 AM EDT) Glucose Lvl 99 65 - 199 mg/dL [facility] Comment:Diabetes: >=200 mg/d L plus symptoms BUN 20(H) 8 - 18 mg/dL [facility] Creatinine 1.59(H) 0.70 - 1.20 mg/dL [facility] Sodium 139 135 - 145 mmol/L [facility] Potassium 3.4(L) 3.5 - 5.0 mmol/L [facility] Comment: Please note: ??Patients with WBC >100,000 may have falsely elevated Potassium levels. ??For accurate Potassium quantification in these patients send serum separator tube (gold top) for subsequent determinations. ??Contact the Clinical Chemistry Laboratory if there are any questions. Chloride 102 98 - 107 mmol/L [facility] CO2 25 22 - 31 mmol/L [facility] Anion Gap 12 5 - 15 mmol/L [facility] Calcium 9.4 8.5 - 10.5 mg/dL [facility] Estimated GFR 38(L) >=60 mL/min/1. 73 m?? [facility] Comment: This patient's estimated [...] MD CHEMISTRY ORDERABL ES Performing Organization Address [facility] Co de Phone Number [facility] [place] [address] * Phosphorus (06/25/2023 1:50 AM EDT) Phosphorus 4.4 2.5 - 4.5 mg/dL [facility] Blood 06/25/2023 1:50 AM EDT 06/25/2023 2:16 AM EDT Narrative Resulting Agency Comment Spec In Lab Eufemia Copeland MD CHEMISTRY ORDERABL ES Performing Organization Address [facility] Co de Phone Number [facility] [place] [address] * Magnesium (06/25/2023 1:50 AM EDT) Magnesium 0.99 0.69 - 1.07 mmol/L [facility] Blood 06/25/2023 1:50 AM EDT 06/25/2023 2:16 AM EDT Narrative Resulting Agency Comment Spec In Lab Eufemia Copeland MD CHEMISTRY ORDERABL ES Performing Organization Address [facility] de Phone Number [facility] [place] [address] * (ABNORMAL) pro-Brain Natriuretic Peptide (06/24/2023 3:38 AM EDT) ProBNP 1,239(H) <=124 pg/mL [facility] Blood Venous Draw / Unknown 06/24/2023 3:38 AM EDT 06/24/2023 3:49 AM EDT Narrative Resulting Agency Comment Spec In Lab Ailyn K Battula MD CHEMISTRY ORDERABLES Performing Organization Address City/[facility]/ZIP Co de Phone Number [facility] [place] [address] * Differential, Automated (06/24/2023 3:38 AM EDT) Neutrophils % 51.6 % [facility] Neutr Abs (ANC) 3.54 1.70 - 6.10 x10(3)/[facility] Lymphocytes % 36.0 % [facility] Lymphocytes Abs 2.5 0.9 - 3.2 x10(3)/[facility] Monocytes % 7.8 % [facility] Monocyte Abs 0.5 0.3 - 0.9 x10(3)/[facility] Eosinophils % 3.6 % [facility] Eosinophils Abs 0.2 0.0 - 0.4 x10(3)/[facility] Basophils % 0.7 % [facility] Basophils Abs 0.0 0.0 - 0.1 x10(3)/[facility] Immature Gran % 0.30 % [facility] Comment: Immature granulocytes(IG's)percentage and absolute count will include metamyelocytes, myelocytes, and promyelocytes. Blood smears from CBCs yielding IG's will be scanned manually for concordance. If this scan disagrees with the automated IG or if promyelocytes are noted, a manual differential will be performed. Shonda Gran Abs 0.02 0.00 - 0.04 x10(3)/[facility] Blood 06/24/2023 3:38 AM EDT 06/24/2023 3:49 AM EDT Narrative Resulting Agency Comment Spec In Lab Terrence Keating MD HEMATOLOGY ORDERABLE S Performing Organization Address City/[facility]/ZIP Co de Phone Number [facility] [place] [address] * Hemogram (06/24/2023 3:38 AM EDT) WBC 6.9 4.0 - 9.5 x10(3)/[facility] RBC 4.36 4.00 - 5.21 x10(6)/[facility] Hemoglobin 13.6 11.7 - 15.5 g/dL [facility] Hematocrit 40.7 35.7 - 45.8 % [facility] MCV 93.3 82.6 - 94.4 [facility] MCH 31.2 27.1 - 32.0 pg [facility] MCHC 33.4 31.7 - 35.0 g/dL [facility] Platelets 220 145 - 357 x10(3)/[facility] RDWSD 44.5 37.0 - 46.0 [facility] RDWCV 13.0 11.5 - 14.1 % [facility] MPV 10.8 7.6 - 12.9 [facility] nRBC % Auto 0.0 % [facility] nRBC Abs Auto 0.000 0.000 - 0.000 x10(3)/[facility] Blood 06/24/2023 3:38 AM EDT 06/24/2023 3:49 AM EDT Narrative Resulting Agency Comment Spec In Lab Terrence Keating MD HEMATOLOGY ORDERABLE S [facility] [place] [address] * Heparin (unfractionated) Level (06/24/2023 3:38 AM EDT) Pathologist [facility], [place] Heparin UFH Level 0.44 IU/mL [facility] Comment: Heparin (anti-Xa) levels [...] Lab Terrence Keating MD HEMATOLOGY ORDERABLE S [facility] [place] [address] * (ABNORMAL) Basic Metabolic Panel (non-fasting) (06/24/2023 3:38 AM EDT) Glucose Lvl 96 65 - 199 mg/dL [facility] Comment:Diabetes: >=200 mg/d L plus symptoms BUN 20(H) 8 - 18 mg/dL [facility] Creatinine 1.14 0.70 - 1.20 mg/dL [facility] Sodium 138 135 - 145 mmol/L [facility] Potassium 4.2 3.5 - 5.0 mmol/L [facility] Comment: Please note: ??Patients with WBC >100,000 may have falsely elevated Potassium levels. ??For accurate Potassium quantification in these patients send serum separator tube (gold top) for subsequent determinations. ??Contact the Clinical Chemistry Laboratory if there are any questions. Chloride 104 98 - 107 mmol/L [facility] CO2 21(L) 22 - 31 mmol/L [facility] Anion Gap 13 5 - 15 mmol/L [facility] Calcium 9.1 8.5 - 10.5 mg/dL [facility] Estimated GFR 57(L) >=60 mL/min/1. 73 m?? [facility] Comment: This patient's estimated [...] MD CHEMISTRY ORDERABL ES Performing Organization Address [facility] Co de Phone Number [facility] [place] [address] * Phosphorus (06/24/2023 3:38 AM EDT) Phosphorus 4.1 2.5 - 4.5 mg/dL [facility] Blood 06/24/2023 3:38 AM EDT 06/24/2023 3:49 AM EDT Narrative Resulting Agency Comment Spec In Lab Eufemia Copeland MD CHEMISTRY ORDERABL ES Performing Organization Address [facility] Co de Phone Number [facility] [place] [address] * Magnesium (06/24/2023 3:38 AM EDT) Magnesium 0.96 0.69 - 1.07 mmol/L [facility] Blood 06/24/2023 3:38 AM EDT 06/24/2023 3:49 AM EDT Narrative Resulting Agency Comment Spec In Lab Eufemia Copeland MD CHEMISTRY ORDERABL ES Performing Organization Address [facility] Co de Phone Number [facility] [place] [address] * Heparin (unfractionated) Level (06/23/2023 9:24 PM EDT) Heparin UFH Level 0.51 IU/mL [facility] Comment: Heparin (anti-Xa) levels [...] Lab Terrence Keating MD HEMATOLOGY ORDERABLE S [facility] [place] [address] * Duplex Study Visceral Arteries, Comp (06/23/2023 3:36 PM EDT) Pathologist [facility], [place] VB Text Report Department: Vascular Surgery Lab Patient: [id number] (ROHAN LOIDA) CPT: 94140 Referring Physician: AILYN IRVIN ?? Phone: Indications: [...] PM EDT) Heparin UFH Level 0.90 IU/mL [facility] Comment: Heparin (anti-Xa) levels [...] Lab Terrence Keating MD HEMATOLOGY ORDERABLE S [facility] [place] [address] * EKG 12 Lead (06/23/2023 9:54 AM EDT) Ventricular rate 48 BPM MUSE SYSTEM Atrial Rate 48 BPM MUSE SYSTEM P-R Interval 192 ms MUSE SYSTEM QRS Duration 92 ms MUSE SYSTEM Q-T Interval 462 ms MUSE SYSTEM QTC Calculated (Bezet) 412 ms MUSE SYSTEM Calculated P [place] 21 degrees MUSE SYSTEM Calculated R [place] 20 degrees MUSE SYSTEM Calculated T [place] 16 degrees MUSE SYSTEM INTERPRETATION Sinus bradycardia [...] 4:12 AM EDT) Neutrophils % 52.8 % [facility] Neutr Abs (ANC) 4.30 1.70 - 6.10 x10(3)/mcL [facility] Lymphocytes % 33.9 % [facility] Lymphocytes Abs 2.8 0.9 - 3.2 x10(3)/[facility] Monocytes % 8.3 % [facility] Monocyte Abs 0.7 0.3 - 0.9 x10(3)/[facility] Eosinophils % 3.9 % [facility] Eosinophils Abs 0.3 0.0 - 0.4 x10(3)/[facility] Basophils % 0.7 % [facility] Basophils Abs 0.1 0.0 - 0.1 x10(3)/[facility] Immature Gran % 0.40 % [facility] Comment: Immature granulocytes(IG's)percentage and absolute count will include metamyelocytes, myelocytes, and promyelocytes. Blood smears from CBCs yielding IG's will be scanned manually for concordance. If this scan disagrees with the automated IG or if promyelocytes are noted, a manual differential will be performed. Shonda Gran Abs 0.03 0.00 - 0.04 x10(3)/[facility] Blood 06/23/2023 4:12 AM EDT 06/23/2023 4:38 AM EDT Narrative Resulting Agency Comment Spec In Lab Terrence Keating MD HEMATOLOGY ORDERABLE S [facility] [place] [address] * Hemogram (06/23/2023 4:12 AM EDT) WBC 8.2 4.0 - 9.5 x10(3)/[facility] RBC 4.59 4.00 - 5.21 x10(6)/[facility] Hemoglobin 14.3 11.7 - 15.5 g/dL [facility] Hematocrit 43.1 35.7 - 45.8 % [facility] MCV 93.9 82.6 - 94.4 fL [facility] MCH 31.2 27.1 - 32.0 pg [facility] MCHC 33.2 31.7 - 35.0 g/dL [facility] Platelets 233 145 - 357 x10(3)/[facility] RDWSD 44.2 37.0 - 46.0 fL [facility] RDWCV 13.0 11.5 - 14.1 % [facility] MPV 11.3 7.6 - 12.9 fL [facility] nRBC % Auto 0.0 % [facility] nRBC Abs Auto 0.000 0.000 - 0.000 x10(3)/[facility] Blood 06/23/2023 4:12 AM EDT 06/23/2023 4:38 AM EDT Narrative Resulting Agency Comment Spec In Lab Terrence Keating MD HEMATOLOGY ORDERABLE S Performing Organization Address City/State/[facility] Co de Phone Number [facility] [place] [address] * (ABNORMAL) Heparin (unfractionated) Level (06/23/2023 4:12 AM EDT) Heparin UFH Level 1.95(Crit ical) IU/mL [facility] Comment: Critical Result called [...] Lab Terrence Keating MD HEMATOLOGY ORDERABLE S [facility] [place] [address] * (ABNORMAL) Basic Metabolic Panel (non-fasting) (06/23/2023 4:12 AM EDT) Glucose Lvl 87 65 - 199 mg/dL [facility] Comment:Diabetes: >=200 mg/d L plus symptoms BUN 23(H) 8 - 18 mg/dL [facility] Creatinine 1.08 0.70 - 1.20 mg/dL [facility] Sodium 137 135 - 145 mmol/L [facility] Potassium 3.8 3.5 - 5.0 mmol/L [facility] Comment: Please note: ??Patients with WBC >100,000 may have falsely elevated Potassium levels. ??For accurate Potassium quantification in these patients send serum separator tube (gold top) for subsequent determinations. ??Contact the Clinical Chemistry Laboratory if there are any questions. Chloride 103 98 - 107 mmol/L [facility] CO2 22 22 - 31 mmol/L [facility] Anion Gap 12 5 - 15 mmol/L [facility] Calcium 9.3 8.5 - 10.5 mg/dL [facility] Estimated GFR 61 >=60 mL/min/1. 73 m?? [facility] Comment: This patient's estimated [...] MD CHEMISTRY ORDERABL ES Performing Organization Address [facility] Co de Phone Number [facility] [place] [address] * Phosphorus (06/23/2023 4:12 AM EDT) Phosphorus 4.5 2.5 - 4.5 mg/dL [facility] Blood 06/23/2023 4:12 AM EDT 06/23/2023 4:38 AM EDT Narrative Resulting Agency Comment Spec In Lab Eufemia Copeland MD CHEMISTRY ORDERABL ES Performing Organization Address [facility] Co de Phone Number [facility] [place] [address] * Magnesium (06/23/2023 4:12 AM EDT) Magnesium 1.03 0.69 - 1.07 mmol/L [facility] Blood 06/23/2023 4:12 AM EDT 06/23/2023 4:38 AM EDT Narrative Resulting Agency Comment Spec In Lab Eufemia Copeland MD CHEMISTRY ORDERABL ES Performing Organization Address [facility] Co de Phone Number [facility] [place] [address] * ECHO LMTD W CONTRAST W LMTD SPEC DOPP COLOR DOPP (06/22/2023 4:25 PM EDT) Anatomical Region Laterality Modality Cardiac Other 06/22/2023 2:49 PM EDT Narrative 06/22/2023 4:42 PM [place]T [address] [place] [address] ? Echocardiogram Report Name: LOIDA ROQUE ?Study Date: 06/22/2023 02:49 PM ?Patient Location: [place] [address] A ??HR: 57 : 1970 ?Height: 162 cm ? Account: [id number] Age: 53 yrs ?Weight: 102 kg Gender: [...] slight decrease in LV systolic function. Procedure Complete-42044. Satisfactory quality. There is normal sinus rhythm. [...] Procedure Note Jose Gallegos MD - 06/22/[address] [place] [address] Echocardiogram Report Name: LOIDA ROQUE Study Date: 06/22/2023 02:49 PM Patient Location: [place] [address] A HR:57 : 1970 Height: 162 cmAccount: [id number] Age: 53 yrs Weight: 102 kg Gender: [...] a slightdecrease in LV systolic function. Procedure Complete-83437. Satisfactory quality. There is normal sinus rhythm. [...] PM EDT) Troponin-T HS 22(H) <=14 ng/L [facility] Comment: This patient's troponin [...] [facility] Test Catalog Reference: Fourth [place] Definition of Myocardial Infarction. Journal of the [place] [employer] 2018;72:9755-1963 Blood 06/22/2023 2:38 PM EDT 06/22/2023 2:50 PM EDT Narrative Resulting Agency Comment Spec In Lab Ailyn Irvin MD CHEMISTRY ORDERABLES Performing Organization Address [facility]/ZIP Co de Phone Number [facility] [place] [address] * Duplex for DVT, Arm, Unilat (06/22/2023 2:24 PM EDT) VB Text Report Department: Vascular Surgery Lab Patient: [id number] (LOIDA ROQUE) CPT: 12345 Referring Physician: AILYN IRVIN ?? Phone: Indications: [...] Irvin MD VASCULAR ORDERABLES Performing Organization Address City/[facility]/ZIP Co de Phone Number [facility] * XR [...] have questions please contact the health care provider that requested your imaging first. ? Narrative 06/22/2023 11:47 AM EDT EXAMINATION: XR [...] who have questions please contactthe health care provider that requested your imaging first. Ailyn Irvin MD IMG DX ORDERABLES * (ABNORMAL) Troponin (06/22/2023 11:24 AM EDT) Troponin-T HS 22(H) <=14 ng/L [facility] Comment: This patient's troponin [...] [facility] Test Catalog Reference: [place] Definition of Myocardial Infarction. Journal of the [place] [employer] 2018;72:4653-7179 Blood 06/22/2023 11:2 4 AM EDT 06/22/2023 11:44 AM EDT Narrative Resulting Agency Comment Spec In Lab Ailyn Irvin MD CHEMISTRY ORDERABLES [facility] [place] [address] * EKG 12 Lead (06/22/2023 11:13 AM EDT) Ventricular rate 63 BPM MUSE SYSTEM Atrial Rate 63 BPM MUSE SYSTEM P-R Interval 162 ms MUSE SYSTEM QRS Duration 86 ms MUSE SYSTEM Q-T Interval 382 ms MUSE SYSTEM QTC Calculated (Bezet) 390 ms MUSE SYSTEM Calculated P [place] 24 degrees MUSE SYSTEM Calculated R [place] 32 degrees MUSE SYSTEM Calculated T [place] -2 degrees MUSE SYSTEM INTERPRETATION Normal sinus rhythm Septal infarct (cited on or before 22-JUN-2023) Possible Lateral infarct , age undetermined ST & T wave abnormality, consider inferolateral ischemia Abnormal ECG When compared with ECG of 22-JUN-2023 10:55, No significant change was found Confirmed by MD Angelo Danette ([id number]) on 06/22/2023 3:56:31 PM MUSE SYSTEM 06/22/2023 [...] (Bezet) 411 ms MUSE SYSTEM Calculated P [place] 22 degrees MUSE SYSTEM Calculated R [place] 20 degrees MUSE SYSTEM Calculated T [place] 10 degrees MUSE SYSTEM INTERPRETATION Sinus bradycardia Septal infarct , age undetermined ST & T wave abnormality, consider inferolateral ischemia Abnormal ECG When compared with ECG of 21-JUN-2023 10:06, Septal infarct is now Present Confirmed by MD Angelo Danette ([id number]) on 06/22/2023 3:55:53 PM MUSE SYSTEM 06/22/2023 10:5 5 AM EDT 06/22/2023 3:55 PM EDT Ailyn Irvin MD ECG ORDERABLES Performing Organization Address City/[facility] Co de Phone Number MUSE SYSTEM * Differential, Automated (06/22/2023 4:34 AM EDT) Neutrophils % 54.4 % [facility] Neutr Abs (ANC) 4.07 1.70 - 6.10 x10(3)/[facility] Lymphocytes % 30.6 % [facility] Lymphocytes Abs 2.3 0.9 - 3.2 x10(3)/[facility] Monocytes % 9.9 % [facility] Monocyte Abs 0.7 0.3 - 0.9 x10(3)/[facility] Eosinophils % 4.3 % [facility] Eosinophils Abs 0.3 0.0 - 0.4 x10(3)/[facility] Basophils % 0.7 % [facility] Basophils Abs 0.0 0.0 - 0.1 x10(3)/[facility] Immature Gran % 0.10 % [facility] Comment: Immature granulocytes(IG's)percentage and absolute count will include metamyelocytes, myelocytes, and promyelocytes. Blood smears from CBCs yielding IG's will be scanned manually for concordance. If this scan disagrees with the automated IG or if promyelocytes are noted, a manual differential will be performed. Shonda Gran Abs 0.01 0.00 - 0.04 x10(3)/[facility] Blood 06/22/2023 4:34 AM EDT 06/22/2023 4:42 AM EDT Narrative Resulting Agency Comment Spec In Lab Terrence Keating MD HEMATOLOGY ORDERABLE S [facility] [place] [address] * (ABNORMAL) Hemogram (06/22/2023 4:34 AM EDT) WBC 7.5 4.0 - 9.5 x10(3)/[facility] RBC 4.04 4.00 - 5.21 x10(6)/[facility] Hemoglobin 12.8 11.7 - 15.5 g/dL [facility] Hematocrit 39.1 35.7 - 45.8 % [facility] MCV 96.8(H) 82.6 - 94.4 fL [facility] MCH 31.7 27.1 - 32.0 pg [facility] MCHC 32.7 31.7 - 35.0 g/dL [facility] Platelets 225 145 - 357 x10(3)/[facility] RDWSD 45.9 37.0 - 46.0 fL [facility] RDWCV 13.0 11.5 - 14.1 % [facility] MPV 10.6 7.6 - 12.9 fL [facility] nRBC % Auto 0.0 % [facility] nRBC Abs Auto 0.000 0.000 - 0.000 x10(3)/mcL [facility] Blood 06/22/2023 4:34 AM EDT 06/22/2023 4:42 AM EDT Narrative Resulting Agency Comment Spec In Lab Terrence Keating MD HEMATOLOGY ORDERABLE S [facility] [place] [address] * (ABNORMAL) Basic Metabolic Panel (non-fasting) (06/22/2023 4:34 AM EDT) Glucose Lvl 94 65 - 199 mg/dL [facility] Comment:Diabetes: >=200 mg/d L plus symptoms BUN 22(H) 8 - 18 mg/dL [facility] Creatinine 1.19 0.70 - 1.20 mg/dL [facility] Sodium 138 135 - 145 mmol/L [facility] Potassium 3.9 3.5 - 5.0 mmol/L [facility] Comment: Please note: ??Patients with WBC >100,000 may have falsely elevated Potassium levels. ??For accurate Potassium quantification in these patients send serum separator tube (gold top) for subsequent determinations. ??Contact the Clinical Chemistry Laboratory if there are any questions. Chloride 102 98 - 107 mmol/L [facility] CO2 19(L) 22 - 31 mmol/L [facility] Anion Gap 17(H) 5 - 15 mmol/L [facility] Calcium 9.4 8.5 - 10.5 mg/dL [facility] Estimated GFR 54(L) >=60 mL/min/1. 73 m?? [facility] Comment: This patient's estimated [...] MD CHEMISTRY ORDERABL ES Performing Organization Address [facility]/ZIP Co de Phone Number [facility] [place] [address] * (ABNORMAL) Phosphorus (06/22/2023 4:34 AM EDT) Phosphorus 4.9(H) 2.5 - 4.5 mg/dL [facility] Blood 06/22/2023 4:34 AM EDT 06/22/2023 4:42 AM EDT Narrative Resulting Agency Comment Spec In Lab Eufemia Copeland MD CHEMISTRY ORDERABL ES Performing Organization Address [facility] Co de Phone Number [facility] [place] [address] * Magnesium (06/22/2023 4:34 AM EDT) Magnesium 1.02 0.69 - 1.07 mmol/L [facility] Blood 06/22/2023 4:34 AM EDT 06/22/2023 4:42 AM EDT Narrative Resulting Agency Comment Spec In Lab Eufemia Copeland MD CHEMISTRY ORDERABL ES Performing Organization Address [facility]/ZIP Co de Phone Number [facility] [place] [address] * CT Abdomen & Pelvis w Contrast [...] have questions please contact the health care provider that requested your imaging first. ? Narrative [...] who have questions please contactthe health care provider that requested your imaging first. Eufemia Ramachandra MD IMG CT ORDERABLES * EKG 12 Lead (06/21/2023 10:06 AM EDT) Ventricular rate 51 BPM MUSE SYSTEM Atrial Rate 51 BPM MUSE SYSTEM P-R Interval 176 ms MUSE SYSTEM QRS Duration 92 ms MUSE SYSTEM Q-T Interval 450 ms MUSE SYSTEM QTC Calculated (Bezet) 414 ms MUSE SYSTEM Calculated P [place] 17 degrees MUSE SYSTEM Calculated R [place] 35 degrees MUSE SYSTEM Calculated T [place] 13 degrees MUSE SYSTEM INTERPRETATION Sinus bradycardia [...] AM EDT) Troponin-T HS 22(H) <=14 ng/L [facility] Comment: This patient's troponin [...] [facility] Test Catalog Reference: Fourth [place] Definition of Myocardial Infarction. Journal of the [place] [employer] 2018;72:8553-1181 Blood 06/21/2023 9:45 AM EDT 06/21/2023 10:08 AM EDT Narrative Resulting Agency Comment Spec In Lab Eufemia Copeland MD CHEMISTRY ORDERABL ES Performing Organization Address [facility] Co de Phone Number [facility] [place] [address] * (ABNORMAL) pro-Brain Natriuretic Peptide (06/21/2023 5:58 AM EDT) ProBNP 1,370(H) <=124 pg/mL [facility] Blood Venous Draw / Unknown 06/21/2023 5:58 AM EDT 06/21/2023 7:28 AM EDT Narrative Resulting Agency Comment Spec In Lab Eufemia Copeland MD CHEMISTRY ORDERABL ES Performing Organization Address [facility] Co de Phone Number [facility] [place] [address] * Potassium (06/21/2023 5:58 AM EDT) Potassium 4.0 3.5 - 5.0 mmol/L [facility] Comment: Please note: ??Patients [...] Lab Eufemia Copeland MD CHEMISTRY ORDERABL ES [facility] [place] [address] * Differential, Automated (06/21/2023 3:25 AM EDT) Neutrophils % 54.0 % [facility] Neutr Abs (ANC) 5.02 1.70 - 6.10 x10(3)/[facility] Lymphocytes % 31.8 % [facility] Lymphocytes Abs 3.0 0.9 - 3.2 x10(3)/[facility] Monocytes % 8.9 % [facility] Monocyte Abs 0.8 0.3 - 0.9 x10(3)/[facility] Eosinophils % 4.2 % [facility] Eosinophils Abs 0.4 0.0 - 0.4 x10(3)/[facility] Basophils % 0.8 % [facility] Basophils Abs 0.1 0.0 - 0.1 x10(3)/[facility] Immature Gran % 0.30 % [facility] Comment: Immature granulocytes(IG's)percentage and absolute count will include metamyelocytes, myelocytes, and promyelocytes. Blood smears from CBCs yielding IG's will be scanned manually for concordance. If this scan disagrees with the automated IG or if promyelocytes are noted, a manual differential will be performed. Shonda Gran Abs 0.03 0.00 - 0.04 x10(3)/[facility] Blood 06/21/2023 3:25 AM EDT 06/21/2023 3:45 AM EDT Narrative Resulting Agency Comment Spec In Lab Terrence Keating MD HEMATOLOGY ORDERABLE S [facility] [place] [address] * Hemogram (06/21/2023 3:25 AM EDT) WBC 9.3 4.0 - 9.5 x10(3)/[facility] RBC 4.74 4.00 - 5.21 x10(6)/[facility] Hemoglobin 14.9 11.7 - 15.5 g/dL [facility] Hematocrit 44.2 35.7 - 45.8 % [facility] MCV 93.2 82.6 - 94.4 fL [facility] MCH 31.4 27.1 - 32.0 pg [facility] MCHC 33.7 31.7 - 35.0 g/dL [facility] Platelets 279 145 - 357 x10(3)/[facility] RDWSD 44.7 37.0 - 46.0 [facility] RDWCV 13.1 11.5 - 14.1 % [facility] MPV 11.1 7.6 - 12.9 [facility] nRBC % Auto 0.0 % [facility] nRBC Abs Auto 0.000 0.000 - 0.000 x10(3)/[facility] Blood 06/21/2023 3:25 AM EDT 06/21/2023 3:45 AM EDT Narrative Resulting Agency Comment Spec In Lab Terrence Keating MD HEMATOLOGY ORDERABLE S [facility] [place] [address] * (ABNORMAL) Basic Metabolic Panel (non-fasting) (06/21/2023 3:25 AM EDT) Glucose Lvl 95 65 - 199 mg/dL [facility] Comment:Diabetes: >=200 mg/d L plus symptoms BUN 27(H) 8 - 18 mg/dL [facility] Creatinine 1.11 0.70 - 1.20 mg/dL [facility] Sodium 138 135 - 145 mmol/L [facility] Potassium Not Perf 3.5 - 5.0 [facility] Comment: Unable to quantitate [...] questions. Chloride 100 98 - 107 mmol/L [facility] CO2 26 22 - 31 mmol/L [facility] Anion Gap 12 5 - 15 mmol/L [facility] Calcium 9.7 8.5 - 10.5 mg/dL [facility] Estimated GFR 59(L) >=60 mL/min/1. 73 m?? [facility] Comment: This patient's estimated [...] Lab Eufemia Copeland MD CHEMISTRY ORDERABL ES [facility] [place] [address] * (ABNORMAL) Phosphorus (06/21/2023 3:25 AM EDT) Phosphorus 5.1(H) 2.5 - 4.5 mg/dL [facility] Blood 06/21/2023 3:25 AM EDT 06/21/2023 3:45 AM EDT Narrative Resulting Agency Comment Spec In Lab Eufemia Copeland MD CHEMISTRY ORDERABL ES Performing Organization Address City/[facility]/ZIP Co de Phone Number [facility] [place] [address] * Magnesium (06/21/2023 3:25 AM EDT) Magnesium 1.04 0.69 - 1.07 mmol/L [facility] Blood 06/21/2023 3:25 AM EDT 06/21/2023 3:45 AM EDT Narrative Resulting Agency Comment Spec In Lab Eufemia Copeland MD CHEMISTRY ORDERABL ES Performing Organization Address [facility] Co de Phone Number [facility] [place] [address] * (ABNORMAL) Differential, Automated (06/20/2023 3:32 AM EDT) [facility] Neutrophils % 52.5 % [facility] Neutr Abs (ANC) 5.28 1.70 - 6.10 x10(3)/ L [facility] Lymphocytes % 32.4 % [facility] Lymphocytes Abs 3.3(H) 0.9 - 3.2 x10(3)/ L [facility] Monocytes % 9.7 % [facility] Monocyte Abs 1.0(H) 0.3 - 0.9 x10(3)/mc L [facility] Eosinophils % 4.3 % [facility] Eosinophils Abs 0.4 0.0 - 0.4 x10(3)/ L [facility] Basophils % 0.7 % [facility] Basophils Abs 0.1 0.0 - 0.1 x10(3)/ L [facility] Immature Gran % 0.40 % [facility] Comment: Immature granulocytes(IG's)percentage and absolute count will include metamyelocytes, myelocytes, and promyelocytes. Blood smears from CBCs yielding IG's will be scanned manually for concordance. If this scan disagrees with the automated IG or if promyelocytes are noted, a manual differential will be performed. Shonda Gran Abs 0.04 0.00 - 0.04 x10(3)/mc L [facility] Blood 06/20/2023 3:32 AM EDT 06/20/2023 3:47 AM EDT Narrative Resulting Agency Comment Spec In Lab Terrence Keating MD HEMATOLOGY ORDERABLE S [facility] [place] [address] * (ABNORMAL) Hemogram (06/20/2023 3:32 AM EDT) WBC 10.1(H) 4.0 - 9.5 x10(3)/[facility] RBC 4.57 4.00 - 5.21 x10(6)/[facility] Hemoglobin 14.2 11.7 - 15.5 g/dL [facility] Hematocrit 41.5 35.7 - 45.8 % [facility] MCV 90.8 82.6 - 94.4 fL [facility] MCH 31.1 27.1 - 32.0 pg [facility] MCHC 34.2 31.7 - 35.0 g/dL [facility] Platelets 253 145 - 357 x10(3)/[facility] RDWSD 43.7 37.0 - 46.0 [facility] RDWCV 13.2 11.5 - 14.1 % [facility] MPV 10.8 7.6 - 12.9 fL [facility] nRBC % Auto 0.0 % [facility] nRBC Abs Auto 0.000 0.000 - 0.000 x10(3)/mcL [facility] Blood 06/20/2023 3:32 AM EDT 06/20/2023 3:47 AM EDT Narrative Resulting Agency Comment Spec In Lab Terrence Keating MD HEMATOLOGY ORDERABLE S [facility] [place] [address] * (ABNORMAL) Basic Metabolic Panel (non-fasting) (06/20/2023 3:32 AM EDT) Glucose Lvl 99 65 - 199 mg/dL [facility] Comment:Diabetes: >=200 mg/d L plus symptoms BUN 26(H) 8 - 18 mg/dL [facility] Creatinine 1.12 0.70 - 1.20 mg/dL [facility] Sodium 137 135 - 145 mmol/L [facility] Potassium 3.7 3.5 - 5.0 mmol/L [facility] Comment: Please note: ??Patients with WBC >100,000 may have falsely elevated Potassium levels. ??For accurate Potassium quantification in these patients send serum separator tube (gold top) for subsequent determinations. ??Contact the Clinical Chemistry Laboratory if there are any questions. Chloride 102 98 - 107 mmol/L [facility] CO2 22 22 - 31 mmol/L [facility] Anion Gap 13 5 - 15 mmol/L [facility] Calcium 9.4 8.5 - 10.5 mg/dL [facility] Estimated GFR 58(L) >=60 mL/min/1. 73 m?? [facility] Comment: This patient's estimated [...] MD CHEMISTRY ORDERABL ES Performing Organization Address [facility] Co de Phone Number [facility] [place] [address] * Phosphorus (06/20/2023 3:32 AM EDT) Phosphorus 4.3 2.5 - 4.5 mg/dL [facility] Blood 06/20/2023 3:32 AM EDT 06/20/2023 3:47 AM EDT Narrative Resulting Agency Comment Spec In Lab Eufemia Copeland MD CHEMISTRY ORDERABL ES Performing Organization Address [facility] Co de Phone Number [facility] [place] [address] * Magnesium (06/20/2023 3:32 AM EDT) Magnesium 1.00 0.69 - 1.07 mmol/L [facility] Blood 06/20/2023 3:32 AM EDT 06/20/2023 3:47 AM EDT Narrative Resulting Agency Comment Spec In Lab Eufemia Copeland MD CHEMISTRY ORDERABL ES Performing Organization Address [facility] Co de Phone Number [facility] [place] [address] * Phosphorus (06/19/2023 5:26 PM EDT) Phosphorus 4.0 2.5 - 4.5 mg/dL [facility] Blood 06/19/2023 5:26 PM EDT 06/19/2023 5:32 PM EDT Narrative Resulting Agency Comment Spec In Lab Eufemia Copeland MD CHEMISTRY ORDERABL ES Performing Organization Address City/[facility]/ZIP Co de Phone Number [facility] [place] [address] * Magnesium (06/19/2023 5:26 PM EDT) Magnesium 0.98 0.69 - 1.07 mmol/L [facility] Blood 06/19/2023 5:26 PM EDT 06/19/2023 5:32 PM EDT Narrative Resulting Agency Comment Spec In Lab Eufemia Copeland MD CHEMISTRY ORDERABL ES Performing Organization Address [facility] Co de Phone Number [facility] [place] [address] * (ABNORMAL) Basic Metabolic Panel (non-fasting) (06/19/2023 5:26 PM EDT) Pathologist [facility] [place] Glucose Lvl 105 65 - 199 mg/dL [facility] Comment:Diabetes: >=200 mg/d L plus symptoms BUN 21(H) 8 - 18 mg/dL [facility] Creatinine 1.06 0.70 - 1.20 mg/dL [facility] Sodium 139 135 - 145 mmol/L [facility] Potassium 3.9 3.5 - 5.0 mmol/L [facility] Comment: Please note: ??Patients with WBC >100,000 may have falsely elevated Potassium levels. ??For accurate Potassium quantification in these patients send serum separator tube (gold top) for subsequent determinations. ??Contact the Clinical Chemistry Laboratory if there are any questions. Chloride 103 98 - 107 mmol/L [facility] CO2 22 22 - 31 mmol/L [facility] Anion Gap 14 5 - 15 mmol/L [facility] Calcium 9.5 8.5 - 10.5 mg/dL [facility] Estimated GFR 62 >=60 mL/min/1. 73 m?? [facility] Comment: This patient's estimated [...] MD CHEMISTRY ORDERABL ES Performing Organization Address [facility] Co de Phone Number [facility] [place] [address] * EKG 12 Lead (06/19/2023 4:24 AM EDT) Ventricular rate 66 BPM MUSE SYSTEM Atrial Rate 66 BPM MUSE SYSTEM P-R Interval 188 ms MUSE SYSTEM QRS Duration 92 ms MUSE SYSTEM Q-T Interval 484 ms MUSE SYSTEM QTC Calculated (Bezet) 507 ms MUSE SYSTEM Calculated P [place] 32 degrees MUSE SYSTEM Calculated R [place] 22 degrees MUSE SYSTEM Calculated T [place] 47 degrees MUSE SYSTEM INTERPRETATION Normal sinus rhythm Nonspecific ST abnormality Prolonged QT Abnormal ECG When compared with ECG of 15-JUN-2023 10:50, No significant change was found Confirmed by MD AKIRA, CINDY ([id number]) on 06/19/2023 2:42:42 PM MUSE SYSTEM 06/19/2023 4:24 AM EDT 06/19/2023 2:42 PM EDT Terrence Keating MD ECG ORDERABLES Performing Organization Address [facility]/ZIP Co de Phone Number MUSE SYSTEM * (ABNORMAL) Basic Metabolic Panel (non-fasting) (06/19/2023 3:22 AM EDT) Glucose Lvl 101 65 - 199 mg/dL [facility] Comment:Diabetes: >=200 mg/d L plus symptoms BUN 24(H) 8 - 18 mg/dL [facility] Creatinine 1.04 0.70 - 1.20 mg/dL [facility] Sodium 137 135 - 145 mmol/L [facility] Potassium 3.6 3.5 - 5.0 mmol/L [facility] Comment: Please note: ??Patients with WBC >100,000 may have falsely elevated Potassium levels. ??For accurate Potassium quantification in these patients send serum separator tube (gold top) for subsequent determinations. ??Contact the Clinical Chemistry Laboratory if there are any questions. Chloride 100 98 - 107 mmol/L [facility] CO2 Not Perf 22 - 31 [facility] Comment:Add-on request. Samp le too old to perform test. Anion Gap Unable to Calculate 5 - 15 mmol/L [facility] Calcium 9.4 8.5 - 10.5 mg/dL [facility] Estimated GFR 64 >=60 mL/min/1 .73 m?? [facility] Comment: This patient's estimated [...] Lab Eufemia Copeland MD CHEMISTRY ORDERABL ES [facility] [place] [address] * Differential, Automated (06/19/2023 3:22 AM EDT) Neutrophils % 54.0 % [facility] Neutr Abs (ANC) 5.08 1.70 - 6.10 x10(3)/[facility] Lymphocytes % 30.7 % [facility] Lymphocytes Abs 2.9 0.9 - 3.2 x10(3)/[facility] Monocytes % 10.0 % [facility] Monocyte Abs 0.9 0.3 - 0.9 x10(3)/[facility] Eosinophils % 4.5 % [facility] Eosinophils Abs 0.4 0.0 - 0.4 x10(3)/[facility] Basophils % 0.6 % [facility] Basophils Abs 0.1 0.0 - 0.1 x10(3)/[facility] Immature Gran % 0.20 % [facility] Comment: Immature granulocytes(IG's)percentage and absolute count will include metamyelocytes, myelocytes, and promyelocytes. Blood smears from CBCs yielding IG's will be scanned manually for concordance. If this scan disagrees with the automated IG or if promyelocytes are noted, a manual differential will be performed. Shonda Gran Abs 0.02 0.00 - 0.04 x10(3)/[facility] Blood 06/19/2023 3:22 AM EDT 06/19/2023 3:47 AM EDT Narrative Resulting Agency Comment Spec In Lab Terrence Keating MD HEMATOLOGY ORDERABLE S [facility] [place] [address] * Hemogram (06/19/2023 3:22 AM EDT) WBC 9.4 4.0 - 9.5 x10(3)/[facility] RBC 4.48 4.00 - 5.21 x10(6)/[facility] Hemoglobin 13.9 11.7 - 15.5 g/dL [facility] Hematocrit 41.7 35.7 - 45.8 % [facility] MCV 93.1 82.6 - 94.4 [facility] MCH 31.0 27.1 - 32.0 pg [facility] MCHC 33.3 31.7 - 35.0 g/dL [facility] Platelets 244 145 - 357 x10(3)/[facility] RDWSD 44.2 37.0 - 46.0 [facility] RDWCV 12.9 11.5 - 14.1 % [facility] MPV 10.9 7.6 - 12.9 [facility] nRBC % Auto 0.0 % [facility] nRBC Abs Auto 0.000 0.000 - 0.000 x10(3)/[facility] Blood 06/19/2023 3:22 AM EDT 06/19/2023 3:47 AM EDT Narrative Resulting Agency Comment Spec In Lab Terrence Keating MD HEMATOLOGY ORDERABLE S Performing Organization Address City/[facility]/ZIP Co de Phone Number [facility] [place] [address] * Phosphorus (06/19/2023 3:22 AM EDT) Phosphorus 4.1 2.5 - 4.5 mg/dL [facility] Blood 06/19/2023 3:22 AM EDT 06/19/2023 3:47 AM EDT Narrative Resulting Agency Comment Spec In Lab Eufemia Copeland MD CHEMISTRY ORDERABL ES Performing Organization Address City/[facility]/ZIP Co de Phone Number [facility] [place] [address] * Magnesium (06/19/2023 3:22 AM EDT) Magnesium 1.00 0.69 - 1.07 mmol/L [facility] Blood 06/19/2023 3:22 AM EDT 06/19/2023 3:47 AM EDT Narrative Resulting Agency Comment Spec In Lab Eufemia Copeland MD CHEMISTRY ORDERABL ES [facility] [place] [address] * (ABNORMAL) Basic Metabolic Panel (non-fasting) (06/18/2023 5:17 PM EDT) Glucose Lvl 115 65 - 199 mg/dL [facility] Comment:Diabetes: >=200 mg/d L plus symptoms BUN 22(H) 8 - 18 mg/dL [facility] Creatinine 1.12 0.70 - 1.20 mg/dL [facility] Sodium 137 135 - 145 mmol/L [facility] Potassium 4.2 3.5 - 5.0 mmol/L [facility] Comment: Please note: ??Patients with WBC >100,000 may have falsely elevated Potassium levels. ??For accurate Potassium quantification in these patients send serum separator tube (gold top) for subsequent determinations. ??Contact the Clinical Chemistry Laboratory if there are any questions. Chloride 101 98 - 107 mmol/L [facility] CO2 22 22 - 31 mmol/L [facility] Anion Gap 14 5 - 15 mmol/L [facility] Calcium 9.6 8.5 - 10.5 mg/dL [facility] Estimated GFR 58(L) >=60 mL/min/1. 73 m?? [facility] Comment: This patient's estimated [...] Lab Eufemia Copeland MD CHEMISTRY ORDERABL ES [facility] [place] [address] * (ABNORMAL) Basic Metabolic Panel (non-fasting) (06/18/2023 4:19 AM EDT) Glucose Lvl 96 65 - 199 mg/dL [facility] Comment:Diabetes: >=200 mg/d L plus symptoms BUN 22(H) 8 - 18 mg/dL [facility] Creatinine 0.93 0.70 - 1.20 mg/dL [facility] Sodium 138 135 - 145 mmol/L [facility] Potassium 4.2 3.5 - 5.0 mmol/L [facility] Comment: Please note: ??Patients with WBC >100,000 may have falsely elevated Potassium levels. ??For accurate Potassium quantification in these patients send serum separator tube (gold top) for subsequent determinations. ??Contact the Clinical Chemistry Laboratory if there are any questions. Chloride 102 98 - 107 mmol/L [facility] CO2 Not Perf 22 - 31 [facility] Comment:Add-on request. Samp le too old to perform test. Anion Gap Unable to Calculate 5 - 15 mmol/L [facility] Calcium 9.5 8.5 - 10.5 mg/dL [facility] Estimated GFR 73 >=60 mL/min/1 .73 m?? [facility] Comment: This patient's estimated [...] Lab Eufemia Copeland MD CHEMISTRY ORDERABL ES [facility] [place] [address] * Differential, Automated (06/18/2023 4:19 AM EDT) Neutrophils % 54.1 % [facility] Neutr Abs (ANC) 4.52 1.70 - 6.10 x10(3)/[facility] Lymphocytes % 31.0 % [facility] Lymphocytes Abs 2.6 0.9 - 3.2 x10(3)/[facility] Monocytes % 9.2 % [facility] Monocyte Abs 0.8 0.3 - 0.9 x10(3)/[facility] Eosinophils % 4.9 % [facility] Eosinophils Abs 0.4 0.0 - 0.4 x10(3)/[facility] Basophils % 0.6 % [facility] Basophils Abs 0.0 0.0 - 0.1 x10(3)/[facility] Immature Gran % 0.20 % [facility] Comment: Immature granulocytes(IG's)percentage and absolute count will include metamyelocytes, myelocytes, and promyelocytes. Blood smears from CBCs yielding IG's will be scanned manually for concordance. If this scan disagrees with the automated IG or if promyelocytes are noted, a manual differential will be performed. Shonda Gran Abs 0.02 0.00 - 0.04 x10(3)/[facility] Blood 06/18/2023 4:19 AM EDT 06/18/2023 4:40 AM EDT Narrative Resulting Agency Comment Spec In Lab Terrence Keating MD HEMATOLOGY ORDERABLE S [facility] [place] [address] * Hemogram (06/18/2023 4:19 AM EDT) WBC 8.4 4.0 - 9.5 x10(3)/[facility] RBC 4.70 4.00 - 5.21 x10(6)/[facility] Hemoglobin 14.5 11.7 - 15.5 g/dL [facility] Hematocrit 42.8 35.7 - 45.8 % [facility] MCV 91.1 82.6 - 94.4 fL [facility] MCH 30.9 27.1 - 32.0 pg [facility] MCHC 33.9 31.7 - 35.0 g/dL [facility] Platelets 258 145 - 357 x10(3)/[facility] RDWSD 43.6 37.0 - 46.0 [facility] RDWCV 13.0 11.5 - 14.1 % [facility] MPV 10.7 7.6 - 12.9 [facility] nRBC % Auto 0.0 % [facility] nRBC Abs Auto 0.000 0.000 - 0.000 x10(3)/[facility] Blood 06/18/2023 4:19 AM EDT 06/18/2023 4:40 AM EDT Narrative Resulting Agency Comment Spec In Lab Terrence Keating MD HEMATOLOGY ORDERABLE S [facility] [place] [address] * Phosphorus (06/18/2023 4:19 AM EDT) Phosphorus 3.7 2.5 - 4.5 mg/dL [facility] Blood 06/18/2023 4:19 AM EDT 06/18/2023 4:40 AM EDT Narrative Resulting Agency Comment Spec In Lab Eufemia Copeland MD CHEMISTRY ORDERABL ES Performing Organization Address [facility]/ZIP Co de Phone Number [facility] [place] [address] * Magnesium (06/18/2023 4:19 AM EDT) Magnesium 1.02 0.69 - 1.07 mmol/L [facility] Blood 06/18/2023 4:19 AM EDT 06/18/2023 4:40 AM EDT Narrative Resulting Agency Comment Spec In Lab Eufemia Copeland MD CHEMISTRY ORDERABL ES Performing Organization Address [facility]/ZIP Co de Phone Number [facility] [place] [address] * Phosphorus (06/17/2023 2:26 PM EDT) Phosphorus 2.8 2.5 - 4.5 mg/dL [facility] Blood 06/17/2023 2:26 PM EDT 06/17/2023 2:36 PM EDT Narrative Resulting Agency Comment Spec In Lab Eufemia Copeland MD CHEMISTRY ORDERABL ES Performing Organization Address City/[facility]/ZIP Co de Phone Number [facility] [place] [address] * Magnesium (06/17/2023 2:26 PM EDT) Magnesium 1.01 0.69 - 1.07 mmol/L [facility] Blood 06/17/2023 2:26 PM EDT 06/17/2023 2:36 PM EDT Narrative Resulting Agency Comment Spec In Lab Eufemia Copeland MD CHEMISTRY ORDERABL ES [facility] [place] [address] * (ABNORMAL) Basic Metabolic Panel (non-fasting) (06/17/2023 2:26 PM EDT) Glucose Lvl 103 65 - 199 mg/dL [facility] Comment:Diabetes: >=200 mg/d L plus symptoms BUN 21(H) 8 - 18 mg/dL [facility] Creatinine 1.07 0.70 - 1.20 mg/dL [facility] Sodium 135 135 - 145 mmol/L [facility] Potassium 3.7 3.5 - 5.0 mmol/L [facility] Comment: Please note: ??Patients with WBC >100,000 may have falsely elevated Potassium levels. ??For accurate Potassium quantification in these patients send serum separator tube (gold top) for subsequent determinations. ??Contact the Clinical Chemistry Laboratory if there are any questions. Chloride 97(L) 98 - 107 mmol/L [facility] CO2 24 22 - 31 mmol/L [facility] Anion Gap 14 5 - 15 mmol/L [facility] Calcium 9.6 8.5 - 10.5 mg/dL [facility] Estimated GFR 62 >=60 mL/min/1. 73 m?? [facility] Comment: This patient's estimated [...] Lab Eufemia Copeland MD CHEMISTRY ORDERABL ES [facility] [place] [address] * XR Abdomen Flat & Upright (06/17/2023 [...] have questions please contact the health care provider that requested your imaging first. ? Narrative 06/17/2023 5:30 PM EDT EXAMINATION: XR [...] who have questions please contactthe health care provider that requested your imaging first. Eufemia Copeland MD IMG DX ORDERABLES * (ABNORMAL) Basic Metabolic Panel (non-fasting) (06/17/2023 5:01 AM EDT) Glucose Lvl 100 65 - 199 mg/dL [facility] Comment:Diabetes: >=200 mg/d L plus symptoms BUN 24(H) 8 - 18 mg/dL [facility] Creatinine 1.03 0.70 - 1.20 mg/dL [facility] Sodium 136 135 - 145 mmol/L [facility] Potassium Not Perf 3.5 - 5.0 [facility] Comment: Unable to quantitate [...] questions. Chloride 100 98 - 107 mmol/L [facility] CO2 24 22 - 31 mmol/L [facility] Anion Gap 12 5 - 15 mmol/L [facility] Calcium 9.5 8.5 - 10.5 mg/dL [facility] Estimated GFR 65 >=60 mL/min/1. 73 m?? [facility] Comment: This patient's estimated [...] In Lab Terrence Keating MD CHEMISTRY ORDERABLES [facility] [place] [id number] * Differential, Automated (06/17/2023 1:11 AM EDT) Neutrophils % 54.5 % [facility] Neutr Abs (ANC) 5.20 1.70 - 6.10 x10(3)/[facility] Lymphocytes % 31.4 % [facility] Lymphocytes Abs 3.0 0.9 - 3.2 x10(3)/[facility] Monocytes % 9.8 % [facility] Monocyte Abs 0.9 0.3 - 0.9 x10(3)/[facility] Eosinophils % 3.4 % [facility] Eosinophils Abs 0.3 0.0 - 0.4 x10(3)/[facility] Basophils % 0.5 % [facility] Basophils Abs 0.0 0.0 - 0.1 x10(3)/[facility] Immature Gran % 0.40 % [facility] Comment: Immature granulocytes(IG's)percentage and absolute count will include metamyelocytes, myelocytes, and promyelocytes. Blood smears from CBCs yielding IG's will be scanned manually for concordance. If this scan disagrees with the automated IG or if promyelocytes are noted, a manual differential will be performed. Shonda Gran Abs 0.04 0.00 - 0.04 x10(3)/[facility]ORAT[facility] Blood 06/17/2023 1:11 AM EDT 06/17/2023 1:16 AM EDT Narrative Resulting Agency Comment Spec In Lab Terrence Keating MD HEMATOLOGY ORDERABLE S [facility] [place] [address] * Hemogram (06/17/2023 1:11 AM EDT) WBC 9.5 4.0 - 9.5 x10(3)/[facility] LABORATORY RBC 4.60 4.00 - 5.21 x10(6)/[facility]ORY Hemoglobin 14.2 11.7 - 15.5 g/dL [facility] Hematocrit 43.0 35.7 - 45.8 % [facility] MCV 93.5 82.6 - 94.4 fL [facility] MCH 30.9 27.1 - 32.0 pg [facility] MCHC 33.0 31.7 - 35.0 g/dL [facility] Platelets 256 145 - 357 x10(3)/[facility] LABORATORY RDWSD 45.0 37.0 - 46.0 [facility] LABORATORY RDWCV 13.2 11.5 - 14.1 % [facility] MPV 10.9 7.6 - 12.9 [facility]ATORY nRBC % Auto 0.0 % [facility] nRBC Abs Auto 0.000 0.000 - 0.000 x10(3)/mcL [facility] Blood 06/17/2023 1:11 AM EDT 06/17/2023 1:16 AM EDT Narrative Resulting Agency Comment Spec In Lab Terrence Keating MD HEMATOLOGY ORDERABLE S Performing Organization Address [facility]/ZIP Co de Phone Number [facility] [place] [address] * Magnesium (06/17/2023 1:11 AM EDT) Magnesium 0.96 0.69 - 1.07 mmol/L [facility] Blood 06/17/2023 1:11 AM EDT 06/17/2023 1:16 AM EDT Narrative Resulting Agency Comment Spec In Lab Eufemia Copeland MD CHEMISTRY ORDERABL ES Performing Organization Address [facility] Co de Phone Number [facility] [place] [address] * (ABNORMAL) Basic Metabolic Panel (non-fasting) (06/17/2023 1:11 AM EDT) Glucose Lvl 102 65 - 199 mg/dL [facility] Comment:Diabetes: >=200 mg/d L plus symptoms BUN 24(H) 8 - 18 mg/dL [facility] Creatinine 1.08 0.70 - 1.20 mg/dL [facility] Sodium 137 135 - 145 mmol/L [facility] Potassium 4.1 3.5 - 5.0 mmol/L [facility] Comment: Please note: ??Patients with WBC >100,000 may have falsely elevated Potassium levels. ??For accurate Potassium quantification in these patients send serum separator tube (gold top) for subsequent determinations. ??Contact the Clinical Chemistry Laboratory if there are any questions. Chloride 100 98 - 107 mmol/L [facility] CO2 24 22 - 31 mmol/L [facility] Anion Gap 13 5 - 15 mmol/L [facility] Calcium 9.2 8.5 - 10.5 mg/dL [facility] Estimated GFR 61 >=60 mL/min/1. 73 m?? [facility] Comment: This patient's estimated [...] In Lab Terrence Keating MD CHEMISTRY ORDERABLES [facility] [place] [address] * (ABNORMAL) Basic Metabolic Panel (non-fasting) (06/16/2023 8:28 PM EDT) Glucose Lvl 111 65 - 199 mg/dL [facility] Comment:Diabetes: >=200 mg/d L plus symptoms BUN 23(H) 8 - 18 mg/dL [facility] Creatinine 1.21(H) 0.70 - 1.20 mg/dL [facility] Sodium 137 135 - 145 mmol/L [facility] Potassium 4.2 3.5 - 5.0 mmol/L [facility] Comment: Please note: ??Patients with WBC >100,000 may have falsely elevated Potassium levels. ??For accurate Potassium quantification in these patients send serum separator tube (gold top) for subsequent determinations. ??Contact the Clinical Chemistry Laboratory if there are any questions. Chloride 99 98 - 107 mmol/L [facility] CO2 26 22 - 31 mmol/L [facility] Anion Gap 12 5 - 15 mmol/L [facility] Calcium 9.3 8.5 - 10.5 mg/dL [facility] Estimated GFR 53(L) >=60 mL/min/1. 73 m?? [facility] Comment: This patient's estimated [...] Lab Eufemia Copeland MD CHEMISTRY ORDERABL ES [facility] [place] [address] * (ABNORMAL) Basic Metabolic Panel (non-fasting) (06/16/2023 2:29 PM EDT) Glucose Lvl 175 65 - 199 mg/dL [facility] Comment:Diabetes: >=200 mg/d L plus symptoms BUN 25(H) 8 - 18 mg/dL [facility] Creatinine 1.27(H) 0.70 - 1.20 mg/dL [facility] Sodium 135 135 - 145 mmol/L [facility] Potassium 3.9 3.5 - 5.0 mmol/L [facility] Comment: result rechecked-EL Please note: ??Patients with WBC >100,000 may have falsely elevated Potassium levels. ??For accurate Potassium quantification in these patients send serum separator tube (gold top) for subsequent determinations. ??Contact the Clinical Chemistry Laboratory if there are any questions. Chloride 96(L) 98 - 107 mmol/L [facility] CO2 26 22 - 31 mmol/L [facility] Anion Gap 13 5 - 15 mmol/L [facility] Calcium 9.3 8.5 - 10.5 mg/dL [facility] Estimated GFR 50(L) >=60 mL/min/1. 73 m?? [facility] Comment: This patient's estimated [...] Lab Eufemia Copeland MD CHEMISTRY ORDERABL ES [facility] [place] [address] * (ABNORMAL) Basic Metabolic Panel (non-fasting) (06/16/2023 9:01 AM EDT) Glucose Lvl 148 65 - 199 mg/dL [facility] Comment:Diabetes: >=200 mg/d L plus symptoms BUN 27(H) 8 - 18 mg/dL [facility] Creatinine 1.27(H) 0.70 - 1.20 mg/dL [facility] Sodium 136 135 - 145 mmol/L [facility] Potassium 2.9(Criti edy) 3.5 - 5.0 mmol/L [facility] Comment: called by tmp /read back by (Malia Mcintyre)/ 06/16/23 @254 Please note: ??Patients with WBC >100,000 may have falsely elevated Potassium levels. ??For accurate Potassium quantification in these patients send serum separator tube (gold top) for subsequent determinations. ??Contact the Clinical Chemistry Laboratory if there are any questions. Chloride 91(L) 98 - 107 mmol/L [facility] CO2 32(H) 22 - 31 mmol/L [facility] Anion Gap 13 5 - 15 mmol/L [facility] Calcium 9.7 8.5 - 10.5 mg/dL [facility] Estimated GFR 50(L) >=60 mL/min/1. 73 m?? [facility] Comment: This patient's estimated [...] Lab Eufemia Copeland MD CHEMISTRY ORDERABL ES [facility] [place] [address] * (ABNORMAL) Magnesium (06/16/2023 3:30 AM EDT) Magnesium 1.09(H) 0.69 - 1.07 mmol/L [facility] Blood Venous Draw / Unknown 06/16/2023 3:30 AM EDT 06/16/2023 3:38 AM EDT Narrative Resulting Agency Comment Spec In Lab Eufemia Copeland MD CHEMISTRY ORDERABL ES Performing Organization Address [facility]/ZIP [place] [address] * (ABNORMAL) Differential, Automated (06/16/2023 3:30 AM EDT) Neutrophils % 50.4 % [facility] Neutr Abs (ANC) 4.15 1.70 - 6.10 x10(3)/ L [facility] Lymphocytes % 33.7 % [facility] Lymphocytes Abs 2.8 0.9 - 3.2 x10(3)/[facility] LABORATORY Monocytes % 11.8 % [facility] Monocyte Abs 1.0(H) 0.3 - 0.9 x10(3)/[facility] LABORATORY Eosinophils % 3.3 % [facility] Eosinophils Abs 0.3 0.0 - 0.4 x10(3)/[facility] LABORATORY Basophils % 0.6 % [facility] Basophils Abs 0.0 0.0 - 0.1 x10(3)/[facility] LABORATORY Immature Gran % 0.20 % [facility] Comment: Immature granulocytes(IG's)percentage and absolute count will include metamyelocytes, myelocytes, and promyelocytes. Blood smears from CBCs yielding IG's will be scanned manually for concordance. If this scan disagrees with the automated IG or if promyelocytes are noted, a manual differential will be performed. Shonda Gran Abs 0.02 0.00 - 0.04 x10(3)/[facility] LABORATORY Blood 06/16/2023 3:30 AM EDT 06/16/2023 3:37 AM EDT Narrative Resulting Agency Comment Spec In Lab Terrence Keating MD HEMATOLOGY ORDERABLE S [facility] [place] [address] * Hemogram (06/16/2023 3:30 AM EDT) [facility] WBC 8.2 4.0 - 9.5 x10(3)/[facility] LABORATORY RBC 4.69 4.00 - 5.21 x10(6)/[facility]ORATORY Hemoglobin 14.5 11.7 - 15.5 g/dL [facility] Hematocrit 42.7 35.7 - 45.8 % [facility] MCV 91.0 82.6 - 94.4 fL [facility] MCH 30.9 27.1 - 32.0 pg [facility] MCHC 34.0 31.7 - 35.0 g/dL [facility] Platelets 260 145 - 357 x10(3)/[facility]ORATORY RDWSD 43.5 37.0 - 46.0 [facility] RDWCV 13.0 11.5 - 14.1 % [facility] MPV 11.1 7.6 - 12.9 [facility] nRBC % Auto 0.0 % [facility] nRBC Abs Auto 0.000 0.000 - 0.000 x10(3)/[facility] Blood 06/16/2023 3:30 AM EDT 06/16/2023 3:37 AM EDT Narrative Resulting Agency Comment Spec In Lab Terrence Keating MD HEMATOLOGY ORDERABLE S [facility] [place] [address] * (ABNORMAL) Basic Metabolic Panel (non-fasting) (06/16/2023 3:30 AM EDT) [facility] Glucose Lvl 110 65 - 199 mg/dL [facility] Comment:Diabetes: >=200 mg/d L plus symptoms BUN 28(H) 8 - 18 mg/dL [facility] Creatinine 1.20 0.70 - 1.20 mg/dL [facility] Sodium 135 135 - 145 mmol/L [facility] Potassium 2.7(Criti edy) 3.5 - 5.0 mmol/L [facility] Comment: called by [place] /read back by Jolly Friedman / 06/16/23 4003 Please note: ??Patients with WBC >100,000 may have falsely elevated Potassium levels. ??For accurate Potassium quantification in these patients send serum separator tube (gold top) for subsequent determinations. ??Contact the Clinical Chemistry Laboratory if there are any questions. Chloride 90(L) 98 - 107 mmol/L [facility] CO2 33(H) 22 - 31 mmol/L [facility] Anion Gap 12 5 - 15 mmol/L [facility] Calcium 9.2 8.5 - 10.5 mg/dL [facility] Estimated GFR 54(L) >=60 mL/min/1. 73 m?? [facility] Comment: This patient's estimated [...] Lab Eufemia Copeland MD CHEMISTRY ORDERABL ES [facility] [place] [place] [address] * Heparin (unfractionated) Level (06/16/2023 3:30 AM EDT) [facility] Heparin UFH Level 0.64 IU/mL [facility] Comment: Heparin (anti-Xa) levels [...] Lab Terrence Keating MD HEMATOLOGY ORDERABLE S [facility] [place] [address] * Lipid Panel (Reflex Direct LDL) (06/16/2023 3:30 AM EDT) [facility] Chol, Total 190 mg/dL [facility] Comment: Desirable: ? <200 mg/dL Borderline High: 200-239 mg/dL Higher: ?>yi=583 mg/dL Triglycerides 126 mg/dL [facility] Comment: Normal: ?<150 mg/dL Borderline High: 150-199 mg/dL High: ?200-499 mg/dL Very High: ? >ps=814 mg/dL HDL 50 mg/dL [facility] Comment: Females: High Risk: <50 mg/dL Males: High Risk: <40 mg/dL LDL Cholesterol 115 mg/dL [facility] Comment: Desirable: ? <100 mg/dL Above Desirable: 100-129 mg/dL Borderline High: 130-159 mg/dL High: ?160-189 mg/dL Very High: ? >zy=368 mg/dL Lipid Interpretation See Note [facility] Comment: It is important [...] individuals with atherosclerotic cardiovascular disease (ASCVD)or LDL >km=337 mg/dL, use a high-intensity statin (40-80 mg [...] In Lab Terrence Keating MD CHEMISTRY ORDERABLES [facility] [place] [address] * (ABNORMAL) Basic Metabolic Panel (non-fasting) (06/15/2023 9:33 PM EDT) Glucose Lvl 120 65 - 199 mg/dL [facility] Comment:Diabetes: >=200 mg/d L plus symptoms BUN 29(H) 8 - 18 mg/dL [facility] Creatinine 1.38(H) 0.70 - 1.20 mg/dL [facility] Sodium 135 135 - 145 mmol/L [facility] Potassium 3.1(L) 3.5 - 5.0 mmol/L [facility] Comment: Please note: ??Patients with WBC >100,000 may have falsely elevated Potassium levels. ??For accurate Potassium quantification in these patients send serum separator tube (gold top) for subsequent determinations. ??Contact the Clinical Chemistry Laboratory if there are any questions. Chloride 92(L) 98 - 107 mmol/L [facility] CO2 31 22 - 31 mmol/L [facility] Anion Gap 12 5 - 15 mmol/L [facility] Calcium 9.4 8.5 - 10.5 mg/dL [facility] Estimated GFR 45(L) >=60 mL/min/1. 73 m?? [facility] Comment: This patient's estimated [...] MD CHEMISTRY ORDERABL ES Performing Organization Address [facility] Co de Phone Number [facility] [place] [address] * Heparin (unfractionated) Level (06/15/2023 9:33 PM EDT) Heparin UFH Level 0.63 IU/mL [facility] Comment: Heparin (anti-Xa) levels [...] MD HEMATOLOGY ORDERABLE S Performing Organization Address [facility]/ZIP Co de Phone Number [facility] [place] [address] * (ABNORMAL) Magnesium (06/15/2023 5:47 PM EDT) Magnesium 1.10(H) 0.69 - 1.07 mmol/L [facility] Blood Venous Draw / Unknown 06/15/2023 5:47 PM EDT 06/15/2023 6:10 PM EDT Narrative Resulting Agency Comment Spec In Lab Terrence Keating MD CHEMISTRY ORDERABLES [facility] [place] [address] * (ABNORMAL) Basic Metabolic Panel (non-fasting) (06/15/2023 5:47 PM EDT) Glucose Lvl 147 65 - 199 mg/dL [facility] Comment:Diabetes: >=200 mg/d L plus symptoms BUN 29(H) 8 - 18 mg/dL [facility] Creatinine 1.20 0.70 - 1.20 mg/dL [facility] Sodium 134(L) 135 - 145 mmol/L [facility] Potassium 2.9(Criti edy) 3.5 - 5.0 mmol/L [facility] Comment: Called by: dm, Read back by: qamar ren, Date/Time:06/15/23 19:11. Please note: ??Patients with WBC >100,000 may have falsely elevated Potassium levels. ??For accurate Potassium quantification in these patients send serum separator tube (gold top) for subsequent determinations. ??Contact the Clinical Chemistry Laboratory if there are any questions. Chloride 89(L) 98 - 107 mmol/L [facility] CO2 29 22 - 31 mmol/L [facility] Anion Gap 16(H) 5 - 15 mmol/L [facility] Calcium 9.1 8.5 - 10.5 mg/dL [facility] Estimated GFR 54(L) >=60 mL/min/1. 73 m?? [facility] Comment: This patient's estimated [...] Lab Eufemia Copeland MD CHEMISTRY ORDERABL ES [facility] [place] [address] * Rapid Drug Screen w/o Confirmation, Urine (06/15/2023 4:46 PM EDT) U Barbiturates Screen None Detected None Detected [facility] Comment: The barbiturate screen [...] U Benzodiazepines Screen None Detected None Detected [facility] Comment: The benzodiazepines screen [...] U Cocaine Screen None Detected None Detected [facility] Comment: The cocaine metabolites screen detects benzoylecgonine (Cocaine Metabolite) at concentrations >150 ng/mL. A ? Presumptive Positive? result indicates that the screening result was positive but has not yet been confirmed by a highly-specific method. As with any screen, occasional false positive results from cross-reacting substances may occur. Not for Medico-Legal Purposes. U Methadone Metabolites Screen None Detected None Detected [facility] Comment: The methadone metabolite screen detects EDDP (major methadone metabolite) at concentrations >100 ng/mL. A ? Presumptive Positive? result indicates that the screening result was positive but has not yet been confirmed by a highly-specific method. As with any screen, occasional false positive results from cross-reacting substances may occur. Not for Medico-Legal Purposes. U Opiate Screen None Detected None Detected [facility] Comment: The opiates screen [...] U Cannabinoid Screen None Detected None Detected [facility] Comment: The marijuana metabolites screen detects the THC metabolite (74-uph-7-carboxy-delta 9-THC) at concentrations >20 ng/mL. A ? Presumptive Positive? result indicates that the screening result was positive but has not yet been confirmed by a highly-specific method. As with any screen, occasional false positive results from cross-reacting substances may occur. Not for Medico-Legal Purposes. U Oxycodone Screen None Detected None Detected [facility] Comment: The oxycodone screen detects oxycodone and oxymorphone at concentrations >100 ng/mL. A ? Presumptive Positive? result indicates that the screening result was positive but has not yet been confirmed by a highly-specific method. As with any screen, occasional false positive results from cross-reacting substances may occur. Not for Medico-Legal Purposes. U Buprenorphine Screen None Detected None Detected [facility] Comment: The buprenorphine screen [...] characteristics of this test were determined by [facility] in accordance with CLIA requirements. This laboratory is qualified under CLIA to perform high-complexity testing. U Fentanyl Screen None Detected None Detected [facility] Comment: The fentanyl screen [...] characteristics of this test were determined by [facility] in accordance with CLIA requirements. This laboratory is qualified under CLIA to perform high-complexity testing. U Tricyclics Screen None Detected None Detected [facility] Comment: The tricyclics screen [...] characteristics of this test were determined by [facility] in accordance with CLIA requirements. This laboratory is qualified under CLIA to perform high-complexity testing. U Ethanol Screen None Detected None Detected [facility] Comment:This urine ethanol a ssay detects ethanol at concentrations >/= 100 mg/L. U Amphetamines Screen None Detected None Detected [facility] Comment: The amphetamine screen detects d-amphetamine and d-methamphetamine at concentrations >300 ng/mL. A ? Presumptive Positive? result indicates that the screening result was positive but has not yet been confirmed by a highly-specific method. As with any screen, occasional false positive results from cross-reacting substances may occur. Not for Medico-Legal Purposes. U Creat TEE 39 >=20 mg/dL [facility] U Chromate TEE <2.0 <=49.9 mg/L [facility] U Nitrite TEE <50 <=499 mg/L [facility] U Oxidant TEE 12 <=199 mg/L [facility] U pH TEE 5.4 3.0 - 10.9 [facility] U Adulterants Screen None Detected None Detected [facility] Comment:No adulteration of t his urine sample was detected. Urine 06/15/2023 4:46 PM EDT 06/15/2023 5:30 PM EDT Narrative Resulting Agency Comment Spec In Lab Eufemia Copeland MD CHEMISTRY ORDERABL ES Performing Organization Address [facility] Co de Phone Number [facility] [place] [address] * Rapid Drug Screen, Urine (TEE Request) (06/15/2023 4:46 PM EDT) Pathologist [facility] [place] TEE Conf Requested No [facility] TEE Requested See Comment [facility] Comment:Refer to Rapid Drug Screen w/o Confirmation, Urine for results. Urine 06/15/2023 4:46 PM EDT 06/15/2023 5:30 PM EDT Narrative Resulting Agency Comment Spec In Lab Eufemia Copeland MD URINE ORDERABLES Performing Organization Address [facility] Phone Number [facility] [place] [address] * (ABNORMAL) Basic Metabolic Panel (non-fasting) (06/15/2023 2:29 PM EDT) Pathologist [facility] [place] Glucose Lvl 141 65 - 199 mg/dL [facility] Comment:Diabetes: >=200 mg/d L plus symptoms BUN 31(H) 8 - 18 mg/dL [facility] Creatinine 1.21(H) 0.70 - 1.20 mg/dL [facility] Sodium 132(L) 135 - 145 mmol/L [facility] Potassium 3.0(Criti edy) 3.5 - 5.0 mmol/L [facility] Comment: Called by: dm, Read back by: qamar ren, Date/Time:06/15/23 15:18. Please note: ??Patients with WBC >100,000 may have falsely elevated Potassium levels. ??For accurate Potassium quantification in these patients send serum separator tube (gold top) for subsequent determinations. ??Contact the Clinical Chemistry Laboratory if there are any questions. Chloride 89(L) 98 - 107 mmol/L [facility] CO2 32(H) 22 - 31 mmol/L [facility] Anion Gap 11 5 - 15 mmol/L [facility] Calcium 9.6 8.5 - 10.5 mg/dL [facility] Estimated GFR 53(L) >=60 mL/min/1. 73 m?? [facility] Comment: This patient's estimated [...] Lab Eufemia Copeland MD CHEMISTRY ORDERABL ES [facility] [place] [address] * Heparin (unfractionated) Level (06/15/2023 2:29 PM EDT) Heparin UFH Level 0.93 IU/mL [facility] Comment: Heparin (anti-Xa) levels [...] MD HEMATOLOGY ORDERABLE S Performing Organization Address [facility]/ZIP Co de Phone Number [facility] [place] [address] * EKG 12 Lead (06/15/2023 10:50 AM EDT) Ventricular rate 55 BPM MUSE SYSTEM Atrial Rate 55 BPM MUSE SYSTEM P-R Interval 184 ms MUSE SYSTEM QRS Duration 96 ms MUSE SYSTEM Q-T Interval 590 ms MUSE SYSTEM QTC Calculated (Bezet) 565 ms MUSE SYSTEM Calculated P [place] 54 degrees MUSE SYSTEM Calculated R [place] 54 degrees MUSE SYSTEM Calculated T [place] 13 degrees MUSE SYSTEM INTERPRETATION Sinus bradycardia with sinus arrhythmia Marked ST abnormality, possible inferior subendocardial injury Long QT interval Abnormal ECG When compared with ECG of 15-JUN-2023 02:17, Nonspecific T wave abnormality has replaced inverted T waves in Lateral leads Confirmed by Kai Haider ([id number]) on 06/16/2023 3:52:04 PM MUSE SYSTEM 06/15/2023 10:5 0 AM EDT 06/16/2023 3:52 PM EDT Terrence Keating MD ECG ORDERABLES Performing Organization Address [facility] Co de Phone Number MUSE SYSTEM * (ABNORMAL) Basic Metabolic Panel (non-fasting) (06/15/2023 8:18 AM EDT) Glucose Lvl 113 65 - 199 mg/dL [facility] Comment:Diabetes: >=200 mg/d L plus symptoms BUN 29(H) 8 - 18 mg/dL [facility] Creatinine 1.22(H) 0.70 - 1.20 mg/dL [facility] Sodium 134(L) 135 - 145 mmol/L [facility] Potassium 2.5(Criti edy) 3.5 - 5.0 mmol/L [facility] Comment: Called by: cheryl, Read back by: eamon mckeon, Date/Time:06/15/23 09:34. Please note: ??Patients with WBC >100,000 may have falsely elevated Potassium levels. ??For accurate Potassium quantification in these patients send serum separator tube (gold top) for subsequent determinations. ??Contact the Clinical Chemistry Laboratory if there are any questions. Chloride 89(L) 98 - 107 mmol/L [facility] CO2 30 22 - 31 mmol/L [facility] Anion Gap 15 5 - 15 mmol/L [facility] Calcium 10.0 8.5 - 10.5 mg/dL [facility] Estimated GFR 53(L) >=60 mL/min/1. 73 m?? [facility] Comment: This patient's estimated [...] Lab Eufemia Copeland MD CHEMISTRY ORDERABL ES [facility] [place] [address] * Heparin (unfractionated) Level (06/15/2023 8:18 AM EDT) [facility] Heparin UFH Level 0.70 IU/mL [facility] Comment: Heparin (anti-Xa) levels [...] Lab Terrence Keating MD HEMATOLOGY ORDERABLE S [facility] [place] [id number] * (ABNORMAL) Troponin (06/15/2023 8:18 AM EDT) [facility] Troponin-T HS 33(H) <=14 ng/L [facility] Comment: This patient's troponin [...] [facility] Test Catalog Reference: [place] Definition of Myocardial Infarction. Journal of the [place] [employer] 2018;72:1488-9304 Blood 06/15/2023 8:18 AM EDT 06/15/2023 8:34 AM EDT Narrative Resulting Agency Comment Spec In Lab Terrence Keating MD CHEMISTRY ORDERABLES [facility] [place] [address] * Differential, Automated (06/15/2023 4:28 AM EDT) Neutrophils % 48.0 % [facility] Neutr Abs (ANC) 3.20 1.70 - 6.10 x10(3)/[facility] Lymphocytes % 35.8 % [facility] Lymphocytes Abs 2.4 0.9 - 3.2 x10(3)/[facility] Monocytes % 11.4 % [facility] Monocyte Abs 0.8 0.3 - 0.9 x10(3)/[facility] Eosinophils % 3.7 % [facility] Eosinophils Abs 0.2 0.0 - 0.4 x10(3)/[facility] Basophils % 1.0 % [facility] Basophils Abs 0.1 0.0 - 0.1 x10(3)/[facility] Immature Gran % 0.10 % [facility] Comment: Immature granulocytes(IG's)percentage and absolute count will include metamyelocytes, myelocytes, and promyelocytes. Blood smears from CBCs yielding IG's will be scanned manually for concordance. If this scan disagrees with the automated IG or if promyelocytes are noted, a manual differential will be performed. Shonda Gran Abs 0.01 0.00 - 0.04 x10(3)/[facility] Blood 06/15/2023 4:28 AM EDT 06/15/2023 4:37 AM EDT Narrative Resulting Agency Comment Spec In Lab Terrence Keating MD HEMATOLOGY ORDERABLE S [facility] [place] [address] * (ABNORMAL) Hemogram (06/15/2023 4:28 AM EDT) WBC 6.7 4.0 - 9.5 x10(3)/[facility] RBC 5.09 4.00 - 5.21 x10(6)/[facility] Hemoglobin 16.1(H) 11.7 - 15.5 g/dL [facility] Hematocrit 48.2(H) 35.7 - 45.8 % [facility] MCV 94.7(H) 82.6 - 94.4 fL [facility] MCH 31.6 27.1 - 32.0 pg [facility] MCHC 33.4 31.7 - 35.0 g/dL [facility] Platelets 253 145 - 357 x10(3)/[facility] RDWSD 45.5 37.0 - 46.0 [facility] RDWCV 13.0 11.5 - 14.1 % [facility] MPV 10.6 7.6 - 12.9 fL [facility] nRBC % Auto 0.0 % [facility] nRBC Abs Auto 0.000 0.000 - 0.000 x10(3)/[facility] Blood 06/15/2023 4:28 AM EDT 06/15/2023 4:37 AM EDT Narrative Resulting Agency Comment Spec In Lab Terrence Keating MD HEMATOLOGY ORDERABLE S Performing Organization Address [facility]/ZIP Co de Phone Number [facility] [place] [address] * (ABNORMAL) Troponin (06/15/2023 4:28 AM EDT) Troponin-T HS 34(H) <=14 ng/L [facility] Comment: This patient's troponin [...] [facility] Test Catalog Reference: [place] Definition of Myocardial Infarction. Journal of the [place] [employer] 2018;72:7548-5955 Blood 06/15/2023 4:28 AM EDT 06/15/2023 4:37 AM EDT Narrative Resulting Agency Comment Spec In Lab Terrence Keating MD CHEMISTRY ORDERABLES [facility] [place] [address] * (ABNORMAL) Prothrombin Time (06/15/2023 4:28 AM EDT) PT 12.7(H) 9.4 - 12.5 sec [facility] INR 1.1 [facility] Comment: An INR <2.0 [...] MD HEMATOLOGY ORDERABLE S Performing Organization Address [facility] Co de Phone Number [facility] [place] [address] * (ABNORMAL) Hepatic Function Panel (06/15/2023 4:28 AM EDT) Total Protein 7.5 6.1 - 8.0 g/dL [facility] Albumin 4.3 3.2 - 5.2 g/dL [facility] AST 32(H) 0 - 30 unit/L [facility] ALT 26 0 - 30 unit/L [facility] Alk Phos 70 35 - 105 unit/L [facility] Total Bilirubin 0.8 0.2 - 1.3 mg/dL [facility] Bili, Direct 0.1 0.0 - 0.3 mg/dL [facility] Blood 06/15/2023 4:28 AM EDT 06/15/2023 4:37 AM EDT Narrative Resulting Agency Comment Spec In Lab Terrence Keating MD CHEMISTRY ORDERABLES Performing Organization Address [facility] Co de Phone Number [facility] [place] [address] * (ABNORMAL) pro-Brain Natriuretic Peptide (06/15/2023 4:28 AM EDT) ProBNP 1,953(H) <=124 pg/mL [facility] Blood 06/15/2023 4:28 AM EDT 06/15/2023 4:37 AM EDT Narrative Resulting Agency Comment Spec In Lab Terrence Keating MD CHEMISTRY ORDERABLES Performing Organization Address [facility]/ZIP Co de Phone Number [facility] [place] [address] * TSH (06/15/2023 4:28 AM EDT) TSH 2.98 0.27 - 4.20 mcIU/mL [facility] Comment: Reference Interval (mcIU/mL): Females: ??First Trimester: 0.23-3.88 ??Second Trimester: 0.22-3.90 ??Third Trimester: 0.44-4.66 Blood 06/15/2023 4:28 AM EDT 06/15/2023 4:37 AM EDT Narrative Resulting Agency Comment Spec In Lab Terrence Keating MD CHEMISTRY ORDERABLES Performing Organization Address [facility]/ZIP Co de Phone Number [facility] [place] [address] * Phosphorus (06/15/2023 4:28 AM EDT) Phosphorus 4.4 2.5 - 4.5 mg/dL [facility] Blood 06/15/2023 4:28 AM EDT 06/15/2023 4:37 AM EDT Narrative Resulting Agency Comment Spec In Lab Terrence Keating MD CHEMISTRY ORDERABLES Performing Organization Address [facility]/ZIP Co de Phone Number [facility] [place] [address] * (ABNORMAL) Magnesium (06/15/2023 4:28 AM EDT) Magnesium 1.22(H) 0.69 - 1.07 mmol/L [facility] Blood 06/15/2023 4:28 AM EDT 06/15/2023 4:37 AM EDT Narrative Resulting Agency Comment Spec In Lab Terrence Keating MD CHEMISTRY ORDERABLES [facility] [place] [address] * Calcium (06/15/2023 4:28 AM EDT) Calcium 9.7 8.5 - 10.5 mg/dL [facility] Blood 06/15/2023 4:28 AM EDT 06/15/2023 4:37 AM EDT Narrative Resulting Agency Comment Spec In Lab Terrence Keating MD CHEMISTRY ORDERABLES Performing Organization Address [facility]/ZIP Co de Phone Number [facility] [place] [address] * (ABNORMAL) Basic Metabolic Panel (non-fasting) (06/15/2023 4:28 AM EDT) Glucose Lvl 112 65 - 199 mg/dL [facility] Comment:Diabetes: >=200 mg/d L plus symptoms BUN 30(H) 8 - 18 mg/dL [facility] Creatinine 1.24(H) 0.70 - 1.20 mg/dL [facility] Sodium 134(L) 135 - 145 mmol/L [facility] Potassium 2.7(Criti edy) 3.5 - 5.0 mmol/L [facility] Comment: Called by: , Read back by: Olive Hernnadez, Date/Time:06/15/23 05:16. Please note: ??Patients with WBC >100,000 may have falsely elevated Potassium levels. ??For accurate Potassium quantification in these patients send serum separator tube (gold top) for subsequent determinations. ??Contact the Clinical Chemistry Laboratory if there are any questions. Chloride 90(L) 98 - 107 mmol/L [facility] CO2 28 22 - 31 mmol/L [facility] Anion Gap 16(H) 5 - 15 mmol/L [facility] Calcium 9.7 8.5 - 10.5 mg/dL [facility] Estimated GFR 52(L) >=60 mL/min/1. 73 m?? [facility] Comment: This patient's estimated [...] In Lab Terrence Keating MD CHEMISTRY ORDERABLES [facility] [place] [address] * EKG 12 Lead (06/15/2023 2:17 AM EDT) Ventricular rate 57 BPM MUSE SYSTEM Atrial Rate 57 BPM MUSE SYSTEM P-R Interval 200 ms MUSE SYSTEM QRS Duration 94 ms MUSE SYSTEM Q-T Interval 606 ms MUSE SYSTEM QTC Calculated (Bezet) 591 ms MUSE SYSTEM Calculated P [place] 66 degrees MUSE SYSTEM Calculated R [place] 74 degrees MUSE SYSTEM Calculated T [place] -33 degrees MUSE SYSTEM INTERPRETATION Sinus bradycardia Possible Lateral infarct (cited on or before 17-APR-2023) Marked ST abnormality, possible inferior subendocardial injury Prolonged QTc Abnormal ECG When compared with ECG of 20-APR-2023 10:23, Nonspecific T wave changes QT has lengthened Confirmed by fellow MD Hansa, Sindhu ([id number]) on 06/15/2023 4:36:19 PM Confirmed by MD Angelo Danette ([id number]) on 06/15/2023 4:51:21 PM MUSE SYSTEM 06/15/2023 2:17 AM EDT 06/15/2023 4:51 PM EDT Terrence Keating MD ECG ORDERABLES MUSE SYSTEM documented in [...] Nebulization, EVERY 4 HOURS PRN, Starting on 07/04/23 at 0857, Until Wed07/09/23 at 1844, Wheezing, [...] Intravenous, 2 TIMES DAILY, First dose on 06/19/23 at 0945, Until Discontinued Given 06/19/2023 5:55 PM EDT 4 0 mg Given 06/19/2023 9:39 AM EDT 40 mg furosemide (Lasix) (10 mg/mL) injection 40 mg 40 mg, Intravenous, 2 TIMES DAILY, 2 doses, First dose (after last modification) on Wed06/20/23 at 0900, Last dose on Wed06/20/23 at 1700 Given 06/20/2023 8:30 AM EDT 40 mg furosemide (Lasix) (10 mg/mL) injection 40 mg 40 mg, Intravenous, EVERY 8 HOURS, 3 doses, First dose (after last modification) on Wed06/20/23 at 1630, Last dose on Wed06/21/23 at 0830 Given 06/20/2023 11:48 PM EDT [...] on Wed06/22/23 at 2230, Until Wed06/24/23 at 2019, Begin infusion at 1,000 units per hr [...] Sublingual, EVERY 5 MIN PRN, Starting on Wed06/15/23 at 0146, Until 06/19/23 at 0719, Chest [...] 40 mEq, Oral, ONCE, 1 dose, On Wed06/17/23 at 1700, potassium chloride ER particle/crystal tablets [...] 40 mEq, Oral, ONCE, 1 dose, On 06/19/23 at 0945, potassium chloride ER particle/crystal tablets [...] 0854 (Given - Provider: Heidy Paris RN)1332 ([facility] Hold - Provider: Admin Adt - Reason: Transfer to a Procedural area)1548 ([facility] Unhold - Provider: Admin Adt) 0856 [...] Wed06/15/23 at 1700, Until Discontinued, Routine 1332 ([facility] Hold - Provider: Admin Adt - Reason: Transfer to a Procedural area)1548 ([facility] Unhold - Provider: Admin Adt)1656 (Given - Provider: Heidy Paris RN) 1708 (Given - Provider: Heidy Paris RN) clopidogreL (Plavix) tablet 75 mg (CANCELED) 75 mg, Oral, DAILY, First dose on Wed07/03/23 at 0900, Until Discontinued, Routine 0854 (Given - Provider: Heidy Paris RN)1332 ([facility] Hold - Provider: Admin Adt - Reason: Transfer to a Procedural area)1548 ([facility] Unhold - Provider: Admin Adt) 0855 (Given - Provider: Heidy Paris RN) 0930 (Given - Provider: Heidy Paris RN) DULoxetine DR (Cymbalta) capsule 60 mg 60 mg, Oral, DAILY, First dose on Wed06/15/23 at 0900, Until Discontinued, Routine 0853 (Given - Provider: Heidy Paris RN)1332 ([facility] Hold - Provider: Admin Adt - Reason: Transfer to a Procedural area)1548 ([facility] Unhold - Provider: Admin Adt) 0856 (Given - Provider: Heidy Paris RN) 0931 (Given - Provider: Heidy Paris RN) gabapentin (Neurontin) capsule 600 mg 600 mg, Oral, NIGHTLY, First dose on Wed06/15/23 at 0200, Until Discontinued, Routine 1332 ([facility] Hold - Provider: Admin Adt - Reason: Transfer to a Procedural area)1548 ([facility] Unhold - Provider: Admin Adt)2136 (Given - Provider: Lorena Torres, RN) 2115 (Given - Provider: Machelle Busch, ERWIN) lidocaine (Lidoderm) 5% patch 1 patch 1 patch, Transdermal, Administer over 12 Hours, EVERY 24 HOURS, First dose (after last modification) on Wed07/04/23 at 1000, Until Discontinued, Apply patch(es) for 12 hours, and then remove for 12 hours.for right lower back, Routine 1000 (Not Given - Provider: Heidy Paris RN - Reason: Patient/family refused)1332 ([facility] Hold - Provider: Admin Adt - Reason: Transfer to a Procedural area)1548 ([facility] Unhold - Provider: Admin Adt) 1000 (Not Given - Provider: Heidy Paris RN - Reason: Patient/family refused) 1000 (Not Given - Provider: Heidy Paris RN - Reason: Patient/family refused) melatonin tablet 6 mg 6 mg, Oral, NIGHTLY, First dose on Wed06/15/23 at 0200, Until Discontinued 1332 ([facility] Hold - Provider: Admin Adt - Reason: Transfer to a Procedural area)1548 ([facility] Unhold - Provider: Admin Adt)2136 (Given - Provider: Lorena Torres, ERWIN) 2116 (Given - Provider: Machelle Busch, ERWIN) metoprolol succinate XL (Toprol-XL) tablet 12.5 mg 12.5 mg, Oral, DAILY, First dose on Wed06/21/23 at 0900, Until Discontinued, DO NOT CRUSH OR OPEN Hold for HR <55 and Sbp <90, Routine 0854 (Given - Provider: Heidy Paris RN)1332 ([facility] Hold - Provider: Admin Adt - Reason: Transfer to a Procedural area)1548 ([facility] Unhold - Provider: Admin Adt) 0900 (Not Given - Provider: Heidy Paris RN - Reason: Order parameters not met) 0930 (Given - Provider: Heidy Paris RN) pantoprazole EC (Protonix) tablet 40 mg 40 mg, Oral, DAILY, First dose on Wed06/15/23 at 0900, Until Discontinued 0854 (Given - Provider: Heidy Paris RN)1332 ([facility] Hold - Provider: Admin Adt - Reason: Transfer to a Procedural area)1548 ([facility] Unhold - Provider: Admin Adt) 0856 [...] Heidy Paris RN - Reason: Patient/family refused)1332 ([facility] Hold - Provider: Admin Adt - Reason: Transfer to a Procedural area)1548 ([facility] Unhold - Provider: Admin Adt) 0900 [...] 0853 (Given - Provider: Heidy Paris RN)1332 ([facility] Hold - Provider: Admin Adt - Reason: Transfer to a Procedural area)1548 ([facility] Unhold - Provider: Admin Adt)2135 (Given - Provider: Lorena Torres RN) 0856 (Given - Provider: Heidy Paris RN)2116 (Given - Provider: Machelle Busch, ERWIN) 0938 (Given - Provider: Heidy Paris RN) rimegepant (Nurtec ODT) Tablet, Rapid Dissolve 75 mg 75 mg, Oral, EVERY 48 HOURS, First dose (after last modification) on Wed06/23/23 at 1000, Until Discontinued 1000 (Not Given - Provider: Heidy Paris RN - Reason: Patient/family refused)1332 ([facility] Hold - Provider: Admin Adt - Reason: Transfer to a Procedural area)1548 ([facility] Unhold - Provider: Admin Adt) 1000 (Not Given - Provider: Heidy Paris RN - Reason: Patient/family refused) rOPINIRole (Requip) tablet 2 mg 2 mg, Oral, 2 TIMES DAILY, First dose on Wed06/15/23 at 0245, Until Discontinued, Routine 0853 (Given - Provider: Heidy Paris RN)1332 ([facility] Hold - Provider: Admin Adt - Reason: Transfer to a Procedural area)1548 ([facility] Unhold - Provider: Admin Adt)2136 (Given - Provider: Lorena Torres, ERWIN) 0856 (Given - Provider: Heidy Paris, ERWIN)2115 (Given - Provider: Machelle Busch, ERWIN) 0931 (Given - Provider: Heidy Paris RN) senna-docusate (Pericolace) 8.6-50 mg per tablet 2 tablet 2 tablet, Oral, 2 TIMES DAILY, First dose on Wed06/17/23 at 1100, Until Discontinued, Routine 0900 (Not Given - Provider: Heidy Paris RN - Reason: Patient/family refused)1332 ([facility] Hold - Provider: Admin Adt - Reason: Transfer to a Procedural area)1548 ([facility] Unhold - Provider: Admin Adt)2100 (Not [...] 0859 (Given - Provider: Heidy Paris RN)1332 ([facility] Hold - Provider: Admin Adt - Reason: Transfer to a Procedural area)1548 ([facility] Unhold - Provider: Admin Adt)2099 (Not Given - Provider: Lorena Torres RN - Reason: Contraindicated) 0859 (Given - Provider: Heidy Paris RN)211 (Given - Provider: Machelle Busch RN) 0937 (Given - Provider: Heidy Paris RN) spironolactone (Aldactone) tablet 25 mg 25 mg, Oral, DAILY, First dose on Wed06/15/23 at 0900, Until Discontinued, DO NOT SPLIT, CRUSH OR OPEN, Routine 0853 (Given - Provider: Heidy Paris RN)1332 ([facility] Hold - Provider: Admin Adt - Reason: Transfer to a Procedural area)1548 ([facility] Unhold - Provider: Admin Adt) 0856 (Given - Provider: Heidy Paris RN) 0931 (Given - Provider: Heidy Paris RN) topiramate (Topamax) tablet 100 mg 100 mg, Oral, NIGHTLY, First dose on Wed06/15/23 at 2100, Until Discontinued, Routine 1332 ([facility] Hold - Provider: Admin Adt - Reason: Transfer to a Procedural area)1548 ([facility] Unhold - Provider: Admin Adt)2137 (Given [...] RN)1300 (Stopped - Provider: Heidy Paris RN)1332 ([facility] Hold - Provider: Admin Adt - Reason: Transfer to a Procedural area)1548 ([facility] Unhold - Provider: Admin Adt)1815 (Restarted - [...] area)1548 ([facility] Unhold - Provider: Admin Adt) albuteroL (Proventil, Ventolin) (2.5 mg/3 mL) (0.083 %) nebulizer solution 2.5 mg 2.5 mg, Nebulization, EVERY 4 HOURS PRN, Starting on Wed07/04/23 at 0857, Until Wed07/09/23 at 1844, Wheezing, Routine 1332 ([facility] Hold - Provider: Admin Adt - Reason: Transfer to a Procedural area)1548 ([facility] Unhold - Provider: Admin Adt) lidocaine (Xylocaine) 1% (10 mg/mL) injection 3 mg 3 mg (0.3 mL), Subcutaneous, ONCE PRN, 1 dose, Starting on Wed06/15/23 at 0146, Until Wed07/09/23 at 1844, for discomfort with PIV insertion, Routine 1332 ([facility] Hold - Provider: Admin Adt - Reason: Transfer to a Procedural area)1548 ([facility] Unhold - Provider: Admin Adt) loratadine (Claritin) tablet 10 mg 10 mg, Oral, DAILY PRN, Starting on Wed06/15/23 at 0146, Until Wed07/09/23 at 1844, allergies, Routine 1332 ([facility] Hold - Provider: Admin Adt - Reason: Transfer to a Procedural area)1548 ([facility] Unhold - Provider: Admin Adt) nitroGLYcerin (Nitrostat) disintegrating tablet 0.4 mg 0.4 mg, Sublingual, EVERY 5 MIN PRN, Starting on Wed06/22/23 at 1119, Until Wed07/09/23 at 1844, Chest pain, SL nitroglycerin may be repeated every 5 minutes as needed up to 3 doses, Routine 1332 ([facility] Hold - Provider: Admin Adt - Reason: Transfer to a Procedural area)1548 ([facility] Unhold - Provider: Admin Adt) 0951 (Given - Provider: Heidy Paris, ERWIN) ondansetron (pf) (Zofran) (2 mg/mL) injection 4 mg 4 mg, Intravenous, EVERY 8 HOURS PRN, Starting on Wed06/29/23 at 1449, Until Wed07/09/23 at 1844, Nausea 1332 ([facility] Hold - Provider: Admin Adt - Reason: Transfer to a Procedural area)1548 ([facility] Unhold - Provider: Admin Adt)2137 (Given [...] all sources in 24 hours., Routine 1332 ([facility] Hold - Provider: Admin Adt - Reason: Transfer to a Procedural area)1548 ([facility] Unhold - Provider: Admin Adt)2137 (Given - Provider: Lorena Torres, ERWIN) 0855 (Given - Provider: Heidy Paris, ERWIN)2120 (Given - Provider: Machelle Busch RN) simethicone (Gas-X Chew) 80 mg chewable tablet 80 mg 80 mg, Oral, EVERY 6 HOURS PRN, Starting on Wed06/20/23 at 0941, Until Wed07/09/23 at 1844, Cramping, Routine 1332 ([facility] Hold - Provider: Admin Adt - Reason: Transfer to a Procedural area)1548 ([facility] Unhold - Provider: Admin Adt) 1344 (Given - Provider: Heidy Paris, ERWIN) sodium chloride 0.9 % (flush) (BD PosiFlush Normal Saline 0.9) flush 5-20 mL 5-20 mL, Intravenous, EVERY 1 MIN PRN, Starting on Tu06/15/23 at 0146, Until Wed07/09/23 at 1844, flush, Flush pertains to all indwelling lines. Flush per protocol found in the job aid using the link provided on this medication record., Routine 1332 ([facility] Hold - Provider: Admin Adt - Reason: Transfer to a Procedural area)1548 ([facility] Unhold - Provider: Admin Adt) Linked Groups [...] Routine documented in this encounter Care Teams Financial Planning Advisor Relationship Specialty Start Date End Date Polo Pearce PA [address] [place] [address] PCP - General Internal Medicine 06/09/21 documented as of this encounter
--- OUTSIDE RECORDS SUMMARY | 2023-10-02 22:41 | XMS_ITS | Encounter Summary ---
Author Organization [facility] [place] [address] Care Team Providers Care Network Systems Operator Name Role Phone oPlo Pearce Primary Care Provider [phone] Reason for Referral * Consultation (Routine) - Closed Specialty Diagnoses / Procedures Referred By Jayant harris Referred To Contact Gastroenterology Diagnoses Chronic abdominal pain chronic abd pain after meals Porsha San MD [facility] [place] [address] [facility] [place] [address] Referral ID Status Reason Start Date Expiration Date V isits Requested Visits Authorized [id number] Closed Consult, Test & Treat 07/08/2023 07/07/2024 1 1 Encounter Details Date Type Department Care Team (Late st Contact Info) Description 07/08/2023 Orders [place] [address] Porsha San MD [facility] [place] [address] Chronic abdominal pain Social History [...] AM EDT Tech [place] [phone] [place] 10/08/2023 9:30 AM EDT Office Visit [place] [phone] MD [facility] [place] [address] 10/21/2023 10:30 AM EDT Appointment Nuclear Medicine at [address] Mary Reyes [facility] [place] [address] 10/21/2023 11:30 AM EDT Appointment Nuclear Medicine at [place] [phone] [place] [address] 10/21/2023 12:30 PM EDT Appointment [place] [address] Mary Reyes [facility] [place] [address] 10/21/2023 1:30 PM EDT Appointment [place] [address] Mary Reyes [facility] [place] [address] 10/21/2023 2:30 PM EDT Appointment [place] [address] Mary Reyes [facility] [place] [address] 10/26/2023 4:00 PM EDT Office Visit Cardiology at [address] [phone] Jaspreet Kinsey MD [facility] [place] [address] 10/28/2023 9:00 AM EDT Office [place] [address] 10/29/2023 10:00 AM EDT Clinical [place] [address] 10/29/2023 10:15 AM EDT Procedure [place] [address] 11/01/2023 5:00 PM EDT Office Visit [place] [phone] Selene Browning, PhD [facility] [place] [address] 11/22/2023 4:40 PM EDT Office Visit Cardiology at [address] [phone] Porsha Mcdaniels MD [facility] [place] [address] 12/13/2023 10:00 AM EDT Clinical Support [place] [address] [facility] [place] [address] Scheduled Referrals Name Type Priority Associated Diagnoses Order Schedule Referral to Gastroenterology Outpatient Referral Routine Chronic abdominal pain Ordered: 07/08/2023 documented as of this encounter Visit Diagnoses Diagnosis Chronic abdominal pain Abdominal pain, unspecified site documented in this encounter Care Teams Network Systems Operator Relationship Specialty Start Date End Date Polo Pearce PA [address] [place] [address] PCP - General Internal Medicine 06/09/21 documented as of this encounter
--- OUTSIDE RECORDS SUMMARY | 2023-10-02 22:41 | XMS_ITS | Encounter Summary ---
[place] [address] Care Team Providers Care Mixer And Blender Name Role Phone Polo Pearce Primary Care Provider [phone] Reason for Visit * Auth/Cert (Routine) Specialty Diagnoses / Procedures Referred By Jayant t Referred To Contact Diagnoses NSTEMI (non-ST elevated myocardial infarction) NSTEMI Procedures ER Lloyd Pantoja MD [facility] [place] [address] [facility] Referral ID Status Reason Start Date Expiration Date Visits Re quested Visits Authorized [id number] 1 1 Encounter Details Date Type Department Care Team (Late st Contact Info) Description 07/07/2023 2:05 PM EDT Anesthesia Event [place] [address] Constantine Velez MD [facility] ANESTHESIOLOGY [place] [address] Anesthesia Record Procedure Summary Procedure Name Responsible Anesthesiologist Anesthesia Start Time Anesthesia Stop Time EGD WITH BIOPSY (WRVU 2.39) (Trunk) Cnostantine Velez MD 07/07/23 1405 07/07/23 1512 Events [...] was previously removed on last admission); 08/29/23; 0719 (This site was previously removed on last [...] drink = 0.6 oz pur e alcohol) [facility] Utilities Answer Date Recorded In the past 12 months has [employer], gas, oil, or water [employer] threatened to shut off services in your [...] a group home (including now)? No 06/15/2023 DH IPV [...] Procedure Summary Date: 07/07/23 Room / Location: [facility] ENDO 5 / [facility] ENDOSCOPY Anesthesia Start: 1405 Anesthesia Stop: 1511 Procedures: EGD WITH BIOPSY (WRVU 2.39) (Trunk) COLONOSCOPY FLEXIBLE, WITH BX (WRVU 3.56) (Trunk) Diagnosis: (post prandial pain) Surgeons: Lashonda Villa MD Responsible Provider: Constantine Velez MD Anesthesia Type: general ASA Status: 4 All Anesthesia Providers: Anesthesiologist: Constantine Velez MD POWER SUPERINTENDENT: Darío Barlow CRNA Assistant Plant Controller: Lawrence Lopez MD Vitals Value Taken Time BP 96/51 07/07/23 1530 Temp Pulse Resp SpO2 100 % 07/07/23 1537 Pain Level 1 07/07/23 1510 Vitals shown include unfiled device data. Patient Location: PACU/PRP Level of Consciousness: Awake and Alert Pain [...] AM EDT Tech [place] [address] [place] [place] 10/08/2023 9:30 AM EDT Office Visit [place] [phone] MD [facility] [place] [address] 10/21/2023 10:30 AM EDT Appointment [place] [address] [address] Reyes [facility] [place] [address] 10/21/2023 11:30 AM EDT Appointment [place] [phone] Mary Reyes [facility] [place] [address] 10/21/2023 12:30 PM EDT Appointment [place] [address] Mary Re[place] [address] 10/21/2023 1:30 PM EDT Appointment [place] [address] [place] [address] 10/21/2023 2:30 PM EDT Appointment [place] [address] [place] [address] 10/26/2023 4:00 PM EDT Office Visit Cardiology at [address] [phone] Jaspreet Kinsey MD [facility] [place] [address] 10/28/2023 9:00 AM EDT Office Visit [place] [address] 10/29/2023 10:00 AM EDT Clinical Support [place] [address] 10/29/2023 10:15 AM EDT Procedure visit [place] [address] 11/01/2023 5:00 PM EDT Office Visit [place] [address] Selene Browning, PhD [facility] [place] [address] 11/22/2023 4:40 PM EDT Office Visit Cardiology at [address] [phone] Porsha Mcdaniels MD [facility] [place] [address] 12/13/2023 10:00 AM EDT Clinical Support [place] [phone] [facility] [place] [address] documented as of this encounter Visit Diagnoses [...] mg documented in this encounter Care Teams Mixer And Blender Relationship Specialty Start Date End Date Polo Pearce PA [address] [place] [address] PCP - General Internal Medicine 06/09/21 documented as of this encounter
--- OUTSIDE RECORDS SUMMARY | 2023-10-02 22:43 | XMS_ITS | Encounter Summary ---
Author Organization [facility] Address [facility] [address] Care Team Providers Care Railroad Switchman Name Role Phone Polo Pearce Primary Care Provider [phone] Encounter Details Date Type Department Care Team (Late st Contact Info) Description 05/28/2023 Telephone Cardiology at [address] [place] [address] [facility] [place] [address] Social History Tobacco Use Types Packs/Day Years Used Date Smoking Tobacco: Never Smokeless Tobacco: Never Alcohol Use Standard Drinks/Week Comments Never 0 (1 standard drink = 0.6 oz pur e alcohol) [facility] Utilities Answer Date Recorded In the past 12 months has [employer], gas, oil, or water [employer] threatened to shut off services in [...] has gone up. Please call her @ [phone] * Telephone Encounter - Nilda Mayes, RN - 06/04/2023 9:41 AM EDT Next office visit is scheduled Date Visit Type Department Provider 09/22/2023 3:00 PM FOLLOW UP VISIT Cardiology at [place] Arrive at: [facility] [address] Kinsey * Telephone Encounter - Aide Glass - 05/28/2023 10:53 AM EDT Patient had labs done recently. She would like to know what Dr Kinsey thinks about them and what if anything she should be doing. Please call her @ [phone] . documented in this encounter Plan of Treatment Upcoming Encounters Date Type Department Care Team (Late st Contact Info) Description 10/08/2023 8:30 AM EDT Tech Visit Vascular Lab at [place] [phone] [place] [place] 10/08/2023 9:30 AM EDT Office [place] [address] [facility] [place] [address] 10/21/2023 10:30 AM EDT Appointment [place] [address] [place] [address] 10/21/2023 11:30 AM EDT Appointment [place] [phone] [place] [address] 10/21/2023 12:30 PM EDT Appointment [place] [phone] [place] [address] 10/21/2023 1:30 PM EDT Appointment [place] [phone] [place] [address] 10/21/2023 2:30 PM EDT Appointment Nuclear Medicine at [place] [phone] [place] [address] 10/26/2023 4:00 PM EDT Office Visit Cardiology at [address] [address] [facility] [place] [address] 10/28/2023 9:00 AM EDT Office [place] [address] 10/29/2023 10:00 AM EDT Clinical Support [place] [address] 10/29/2023 10:15 AM EDT Procedure [place] [address] 11/01/2023 5:00 PM EDT Office Visit Gastroenterology at [place] [phone] Selene Browning, PhD [facility] [place] [address] 11/22/2023 4:40 PM EDT Office Visit Cardiology at [address] [phone] [facility] [place] [address] 12/13/2023 10:00 AM EDT Clinical Support [place] [address] Lucero Romero, [facility] [place] [address] documented as of this encounter Visit Diagnoses Not on filedocumented in this encounter Care Teams Railroad Switchman Relationship Specialty Start Date End Date Polo Pearce PA [address] [facility] [address] [place] [address] PCP - General Internal Medicine 06/09/21 documented as of this encounter
--- OUTSIDE RECORDS SUMMARY | 2023-10-02 22:43 | XMS_ITS | Encounter Summary ---
[place] [address] Care Team Providers Care Spot Sprayer Name Role Phone Polo Pearce Primary Care Provider [phone] Reason for Visit * Auth/Cert (Routine) Specialty Diagnoses / Procedures Referred By Jayant harris Referred To Contact Diagnoses NSTEMI (non-ST elevated myocardial infarction) NSTEMI Procedures ER Terrence Pantoja MD [facility] [place] [address] [facility] Referral ID Status Reason Start Date Expiration Date Visits Re quested Visits Authorized [id number] 1 1 Encounter Details Date Type Department Care Team (Late st Contact Info) Description 07/07/2023 1:00 PM EDT - 07/07/2023 2:00 PM EDT [place] [address] Lashonda Villa MD [facility] [place] [address] EGD WITH BIOPSY (WRVU 2.39) Social History Tobacco Use Types Packs/Day Years Used Date Smoking Tobacco: Never Smokeless Tobacco: Never Alcohol Use Standard Drinks/Week Comments Never 0 (1 standard drink = 0.6 oz pur e alcohol) [facility] Utilities Answer Date Recorded In the past 12 months has th e electric, gas, oil, or water Run[employer] threatened to shut off services in your [...] Loida Roque Patient Age: 53 y.o. Language: Macanese Race: White Ethnicity: Not nor Admit date: 06/14/2023 Discharge date and time: 07/09/2023 3:31 PM Attending Physician: Terrence Keating MD Discharge Physician: Terrence Keating MD Follow-up Recommendations for Providers: Inpatient Provider Contact Information: For questions regarding this document or issues relating to this hospitalization on the Medical Service, please contact your inpatient physician through the [facility] Track Grinder . Issues afterhours and on weekends will [...] who have questions please contact the health director of medicare that requested your imaging first. Abdomen & [...] who have questions please contact the health director of medicare that requested your imaging first. Chest One [...] who have questions please contact the health director of medicare that requested your imaging first. Abdomen Limited (Exam End: 06/28/2023 12:22 PM) Result Value WORKSTATION ID [id number] Narrative Abdominal (Signed Final 06/28/2023 02:08 pm) PATIENT INFO: ID #: [id number] : [birth year] (53 yrs)(F) Name: LOIDA Visit Date: 06/28/2023 12:20 pm ROHAN PERFORMED BY: Attending: Sigrid Owens MD Resident: Rafaela Huddleston MD Performed By: Deena Cabrera RDMS Referred By: AILYN IRVIN Location: [employer] SERVICE(S) PROVIDED: UABDLIM - Abdominal Limited Survey Single 40527 Organ or Quadrant - [id number] INDICATIONS: RUQ pain, R/o Gall bladder colic, [...] who have questions, please contact the health director of medicare that requested your imaging first. Sigrid Owens, E Plaster Die Maker Electronically Signed Final Report 06/28/2023 02:08 pm [...] anesthetic: 10 cc 1% lidocaine Heparin: Yes 22980 Units Protamine: No mg Antibiotics: Ancef Fluoro [...] We exchanged the sheath for a 7 American guide cruise steerable sheath over a stiff wire. A Glidewire and Kumpe catheter were used to selectively cannulate the superior mesenteric artery. Direct angiography of the superior mesenteric artery was performed, confirming the results of the nonselective aortography performed. The lesion was predilated with a 4 mm x 40 mm [place] balloon, and then a 6 mm X [...] 07/03/2023 3:18 PM) Result Value WORKSTATION ID [id number] Narrative EXAMINATION: XR CHEST ONE VIEW CLINICAL [...] who have questions please contact the health director of medicare that requested your imaging first. Echocardiogram from [...] pain. The patient was recently admitted at [facility] from 04/16/23 to 04/19/2023 as a transfer from [facility] due to exertional chest pressure [...] etiology, patient was accepted for transfer to [facility]. Brief Summary: Loida Roque is a [...] with positive cardiac markers. Patient transferred to [facility] for further work-up and evaluation. On [...] Administered Date(s) Administered Moderna Covid-19 Monovalent 12Yr+ (Electric Truck Crane Operator 100mcg) 03/06/2020, 04/03/2020 Discharge Medications: Your [...] weight gain + increasing shortness of breath. [id number] minutes prior to a dose of torsemide). [...] appointments: During 8am-5pm Wednesday through Wednesday call [phone] to speak with a nurse in the cardiology clinic All other times call [phone] and ask to speak to the cardiology nurse electronic assembler group leader. Return to work: One week Driving: No driving for 48 hours after catheterization. Follow up Appointments: PCP JOCY Franco [phone] 11:30am on July 19. Cardiology office will call you regarding your appointment with Dr. Kinsey. General Instructions None Future Appointments and Orders Future Appointments and Orders Future Appointments Provider Department Dept Phone 07/26/2023 3:20 PM Jaspreet Kinsey MD Cardiology at [place] Arrive at: [facility] [address] [phone] 07/29/2023 8:00 AM Porsha Mcdaniels MD Cardiology at [facility] Arrive at: [facility] Area [address] [phone] 08/03/2023 8:30 AM Eladio Boyer Vascular Lab at [facility] Arrive at: Home Health Administrator Area [address]V [phone] 08/03/2023 9:30 AM Judith Butler APRN Vascular Surgery at [facility] Arrive at: Home Health Administrator Area 3V [phone] 09/02/2023 2:40 PM Jaspreet Kinsey MD Cardiology at [place] Arrive at: [facility] [address] [phone] Discharge References/Attachments None Greater than 30 minutes was spent on this discharge including documentation, [id number] time withthe patient, patient education, video and sound recorder, coordination with pharmacy and other patient [...] appointments: During 8am-5pm Wednesday through Wednesday call [phone] to speak with a nurse in the cardiology clinic All other times call [phone] and ask to speak to the cardiology nurse electronic assembler group leader. Return to work: One week Driving: No driving for 48 hours after catheterization. Follow up Appointments: PCP JOCY Franco [phone] 11:30am on July 19. Cardiology office will [...] as needed. fluticasone propionate (FLONASE) 50 mcg/actuation [place], Suspension 1 spray by Each Nare [...] 4pm, per the team. Please refer to: [facility] [address] [facility] [address] PHONE: [phone] FAX: [phone] *For RN RICARDO: 07/09/23 Nani Mendoza MSN-Ed, RN ACM Cardiac Research Nurse and Neuro/Neurocrit/ENT Stereotype Caster. * Mary Castaneda RCP - 07/09/2023 4:37 [...] 1:00 PM EDT [facility] H[facility]PITALIST 2 - [facility] DAILY PROGRESS NOTE Page [phone] to reach a provider 28/09 Admit Date: [...] the last 168 hours. Recent Labs 07/08/23 0507/07/23 03507/06/23 0354 GLUCOSE 102 101 107 Telemetry: [...] with positive cardiac markers. Patient transferred to [facility] for further work-up and evaluation. Presented [...] prn. Diet: Daily Healthy Menu Choices/Cardiac diet ([facility]-Diet) DVT Prophylaxis: DOAC heparin gtt. Code status: Attempt Cardiopulmonary Resuscitation - Inpatient Disposition: Discharge Location: AM-PAC Basic Mobility Raw Score: 24 PT: OT: PCP JOCY Franco [phone] Terrence Keating MD 07/08/2023 * Porsha San MD - 07/08/2023 6:16 AM EDT GASTROENTEROLOGY & HEPATOLOGY CONSULTATION Consult Progress Note Requesting Provider: Terrence Keating MD REASON FOR CONSULTATION Abdominal pain HISTORY OF PRESENT ILLNESS Lioda Roque is a 53 y.o. 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 Patient transferred to [facility] for further work-up and evaluation. Presented [...] Score: 24 PT: OT: PCP JOCY Franco [phone] Terrence Keating MD 07/07/2023 * Terrence Keating MD - 07/06/2023 11:00 AM EDT [facility]PITALIST 2 - [facility] DAILY PROGRESS NOTE Page [phone] to reach a provider 28/09 Admit Date: [...] with positive cardiac markers. Patient transferred to [facility] for further work-up and evaluation. Presented [...] hospital Diet: Daily Healthy Menu Choices/Cardiac diet ([facility]-Diet) NPO diet (Give Meds) DVT Prophylaxis: DOAC Code status: Attempt Cardiopulmonary Resuscitation - Inpatient Disposition: Discharge Location: [facility] Basic Mobility Raw Score: 24 PT: OT: PCP JOCY Franco [phone] Terrence Keating MD 07/06/2023 * Ana Paula [...] 11:00 AM EDT [facility] H[facility]PITALIST 2 - [facility] DAILY PROGRESS NOTE Page [phone] to reach a provider 28/09 Admit Date: [...] with positive cardiac markers. Patient transferred to [facility] for further work-up and evaluation. Presented [...] hospital Diet: Daily Healthy Menu Choices/Cardiac diet ([facility]-Diet) DVT Prophylaxis: DOAC Code status: Attempt Cardiopulmonary Resuscitation - Inpatient Disposition: Discharge Location: AM-PAC Basic Mobility Raw Score: 24 PT: OT: PCP JOCY Franco [phone] Terrence Keating MD 07/05/2023 * Lino Calles MD - 07/04/2023 9:09 AM EDT [facility] H[facility]PITALIST 2 - [facility] DAILY PROGRESS NOTE Page [phone] to reach a provider 28/09 Admit Date: [...] with positive cardiac markers. Patient transferred to [facility] for further work-up and evaluation. On [...] migraine Diet: Daily Healthy Menu Choices/Cardiac diet ([facility]-Diet) DVT Prophylaxis: DOAC Code status: Attempt Cardiopulmonary Resuscitation - Inpatient Disposition: Discharge Location: AM-PAC Basic Mobility Raw Score: 24 PT: OT: PCP JOCY Franco [phone] Lino Calles MD 07/04/2023 * Ana Paula [...] 8:59 AM EDT [facility] H[facility]PITALIST 2 - [facility] DAILY PROGRESS NOTE Page [phone] to reach a provider 28/09 Admit Date: [...] 96.5* 93.6 92.8 Recent Labs 07/03/23 1800 07/03/2330607/02/23 0358 07/01/23 0256 06/30/23 0314 06/29/23 0239 [...] last 168 hours. Recent Labs 07/03/23 1800 07/03/237 07/02/23 035 GLUCOSE 116 104 96 Telemetry: I have [...] with positive cardiac markers. Patient transferred to [facility] for further work-up and evaluation. On [...] PRN Diet: Daily Healthy Menu Choices/Cardiac diet ([facility]-Diet) DVT Prophylaxis: DOAC Code status: Attempt Cardiopulmonary Resuscitation - Inpatient Disposition: Discharge Location: AM-[facility] Basic Mobility Raw Score: 24 PT: OT: PCP JOCY Franco [phone] Lino Calles MD 07/03/2023 * Van Muse [...] 9:55 AM EDT [facility] 2 - [facility] DAILY PROGRESS NOTE Page [phone] to reach a provider 28/09 Admit Date: [...] Labs: Recent Labs 07/02/23 0358 07/01/23 0256 06/30/234 06/29/23 0239 06/28/23 0152 WBC 7.6 6.9 [...] with positive cardiac markers. Patient transferred to [facility] for further work-up and evaluation. On [...] PRN Diet: Daily Healthy Menu Choices/Cardiac diet ([facility]-Diet) DVT Prophylaxis: DOAC Code status: Attempt Cardiopulmonary Resuscitation - Inpatient Disposition: Discharge Location: AM-PAC Basic Mobility Raw Score: 24 PT: OT: PCP JOCY Franco [phone] Lino Calles MD 07/02/2023 * Jaspreet Griffith [facility] - 07/02/2023 6:35 AM EDT Respiratory [...] 7:39 AM EDT [facility] H[facility]PITALIST 2 - [facility] DAILY PROGRESS NOTE Page [phone] to reach a provider 28/09 Admit Date: [...] Status: She is alert. Labs: Recent Labs 07/01/2325506/30/2331306/29/2323806/28/2315106/27/23 0434 WBC 6.9 8.0 8.3 8.1 7.6 HGB 12.8 13.1 13.2 13.4 12.9 HCT 39.0 39.5 38.9 40.6 39.0 PLATELET 224 235 237 238 245 MCV 96.5* 93.6 92.8 94.4 94.0 Recent Labs 07/01/2325506/30/2331306/29/2323806/28/2315106/27/23200506/27/23 0434 NA 137 137 138 138 141 [...] with positive cardiac markers. Patient transferred to [facility] for further work-up and evaluation. On [...] PRN Diet: Daily Healthy Menu Choices/Cardiac diet ([facility]-Diet) NPO diet (Give Meds) DVT Prophylaxis: DOAC Code status: Attempt Cardiopulmonary Resuscitation - Inpatient Disposition: Discharge Location: AM-PAC Basic Mobility Raw Score: 24 PT: OT: PCP JOCY Franco [phone] Terrence Keating MD 07/01/2023 * Terrence Keating MD - 06/30/2023 8:00 AM EDT [facility]IST 2 - [facility] DAILY PROGRESS NOTE Page [phone] to reach a provider 28/09 Admit Date: [...] with positive cardiac markers. Patient transferred to [facility] for further work-up and evaluation. On [...] Score: 24 PT: OT: PCP JOCY Franco [phone] Terrence Keating MD 06/30/2023 * Terrence Keating MD - 06/29/2023 4:29 PM EDT CV H[facility]PITALIST 2 - [facility] DAILY PROGRESS NOTE Page [phone] to reach a provider 28/09 Admit Date: [...] with positive cardiac markers. Patient transferred to [facility] for further work-up and evaluation. On [...] Score: 24 PT: OT: PCP JOCY Franco [phone] Terrence Keating MD 06/29/2023 * Jo Ann Sharpe - 06/29/2023 2:54 PM EDT Nutrition Services Note - Low Nutrition Acuity Loida Roque is a 53 y.o. female Reason for intervention: follow up Nutrition Plan: Continue current diet. Encourage good PO intake. Spironolactone noted. Abdominal pain after eating noted. Encouragement and support provided. Pt screened for follow-up visit and casualty underwriter met with Pt at bedside. Pt [...] consulted in the interim. Jo Ann Sharpe Accounting Machine Mechanic * Mary Castaneda RCP - 06/29/2023 3:55 [...] 1:53 PM EDT [facility] H[facility]PITALIST 2 - [facility] DAILY PROGRESS NOTE Page [phone] to reach a provider 28/09 Admit Date: [...] with positive cardiac markers. Patient transferred to [facility] for further work-up and evaluation. On [...] Score: 24 PT: OT: PCP JOCY Franco [phone] * Ailyn Irvin MD - 06/27/2023 9:40 AM EDT CV H[facility]PITALIST 2 - [facility] DAILY PROGRESS NOTE Page [phone] to reach a provider 28/09 Admit Date: [...] Vitals for the past 168 hrs: Weight 0421/24 0343 103.2 kg (227 lb 9.6 oz) [...] with positive cardiac markers. Patient transferred to [facility] for further work-up and evaluation. On [...] Score: 24 PT: OT: PCP JOCY Franco [phone] * Ailyn Irvin MD - 06/26/2023 12:42 PM EDT CV H[facility]PITALIST 2 - [facility] DAILY PROGRESS NOTE Page [phone] to reach a provider 28/09 Admit Date: [...] 06/26/23 0406 06/25/23 0150 06/24/23 0338 06/23/23 04106/22/23 0434 NA 135 139 138 137 138 [...] with positive cardiac markers. Patient transferred to [facility] for further work-up and evaluation. On [...] Score: 24 PT: OT: PCP JOCY Franco [phone] * Mitali Manuel RCP - 06/26/2023 5:43 [...] 1:39 PM EDT [facility] H[facility]PITALIST 2 - [facility] DAILY PROGRESS NOTE Page [phone] to reach a provider 28/09 Admit Date: [...] nerve deficit. Labs: Recent Labs 06/25/23 0150 06/24/2333706/23/232 06/22/2343306/21/23 0325 WBC 7.2 6.9 8.2 7.5 9.3 [...] with positive cardiac markers. Patient transferred to [facility] for further work-up and evaluation. On [...] Score: 24 PT: OT: PCP JOCY Franco [phone] * Edith Chandler RCP - 06/24/2023 10:40 PM EDT Respiratory Therapy NIV Note NIV Settings: NIV Mode: CPAP PEEP/CPAP (cm H2O): 12 cm H20 FiO2 (%): 21 % O2 Bleed In (LPM): 0 L/min NIV Measurements: Resp: 18 Mve: 7.7 Leak (L/min): 2 L/min Vte: 396 SpO2: 97 % Assessment: Received Pt on RA. Pt tolerating well with Spo2 >92%. Transferred Pt to 0 on CPAP 12. Pt tolerating well. Pt remained on CPAP 12 overnight. Plan to return Pt to RA when awake. Will continue to monitor and support as tolerated. Edith Chandler RCP * Ailyn Irvin MD - 06/24/2023 4:38 PM EDT CV HOSPITALIST 2 - [facility] DAILY PROGRESS NOTE Page [phone] to reach a provider 28/09 Admit Date: [...] cranial nerve deficit. Labs: Recent Labs 06/24/23 03306/23/232 06/22/23 0434 06/21/2332406/20/23 033 WBC 6.9 8.2 7.5 9.3 [...] with positive cardiac markers. Patient transferred to [facility] for further work-up and evaluation. On [...] Score: 24 PT: OT: PCP JOCY Franco [phone] * Aaron Rosado RCP - 06/24/2023 1:55 [...] 1:03 PM EDT CV H[facility]PITALIST 2 - [facility] DAILY PROGRESS NOTE Page [phone] to reach a provider 28/09 Admit Date: [...] with positive cardiac markers. Patient transferred to [facility] for further work-up and evaluation. On [...] Score: 24 PT: OT: PCP JOCY Franco [phone] * Ciera Valdovinos RD - 06/22/2023 2:38 PM EDT Nutrition Services Note - Low Nutrition Acuity Loida Roque is a 53 y.o. female Reason for intervention: hospital day 9 Nutrition Plan: Cardiac Diet Record % PO intake Monitor weight - diuresis noted Patient screened for hospital length of stay nutrition visit, casualty underwriter met with Loida at bedside. Loida reports excellent appetite, eating 100% of meals. She notes that she has not skipped any meals inpatient and has no current nutrition related questions. She notes UBW 217-218 lbs and says that current weight is higher than normal for her. Diuresis noted. Active Orders Diet Daily Healthy Menu Choices/Cardiac diet ([facility]-Diet) Frequency: Effective Now Number [...] 1:35 PM EDT [facility] H[facility]PITALIST 2 - [facility] DAILY PROGRESS NOTE Page [phone] to reach a provider 28/09 Admit Date: [...] cranial nerve deficit. Labs: Recent Labs 06/22/23 04306/21/235 06/20/2333106/19/2332106/18/23 0419 WBC 7.5 9.3 10.1* 9.4 8.4 [...] who have questions please contact the health director of medicare that requested your imaging first. Chest One View (Exam End: 06/22/2023 11:42 AM) Impression No acute pulmonary findings Thank you for letting us participate in the care of this patient. If you are a health care provider and have any questions regarding this report, please contact the number below. For patients who have questions please contact the health director of medicare that requested your imaging first. Assessment: Loida [...] with positive cardiac markers. Patient transferred to [facility] for further work-up and evaluation. On [...] above Diet: Daily Healthy Menu Choices/Cardiac diet ([facility]-Diet) DVT Prophlaxis: eliquis Code status: Attempt Cardiopulmonary Resuscitation - Inpatient Disposition: Discharge Planning: AM-PAC Basic Mobility Raw Score: 24 PT: OT: PCP JOCY Franco [phone] * Eufemia Copeland MD - 06/21/2023 11:02 AM EDT CV HOSPITALIST 2 - [facility] DAILY PROGRESS NOTE Page [phone] to reach a provider 28/09 Admit Date: [...] Recent Labs 06/21/23 0325 06/20/23 0332 06/19/23 03206/18/23 0419 06/17/23 0111 WBC 9.3 [...] with positive cardiac markers. Patient transferred to [facility] for further work-up and evaluation. On [...] above Diet: Daily Healthy Menu Choices/Cardiac diet ([facility]-Diet) DVT Prophlaxis: eliquis Code status: Attempt Cardiopulmonary Resuscitation - Inpatient Disposition: Discharge Planning: AM-PAC Basic Mobility Raw Score: 24 PT: OT: PCP JOCY Franco [phone] * Eufemia Copeland MD - 06/20/2023 8:06 AM EDT CV HOSPITALIST 2 - [facility] DAILY PROGRESS NOTE Page [phone] to reach a provider 28/09 Admit Date: [...] with positive cardiac markers. Patient transferred to [facility] for further work-up and evaluation. On [...] above Diet: Daily Healthy Menu Choices/Cardiac diet ([facility]-Diet) DVT Prophlaxis: eliquis Code status: Attempt Cardiopulmonary Resuscitation - Inpatient Disposition: Discharge Planning: AM-PAC Basic Mobility Raw Score: 24 PT: OT: PCP JOCY Franco [phone] * Eufemia Copeland MD - 06/19/2023 10:00 AM EDT CV HOSPITALIST 2 - [facility] DAILY PROGRESS NOTE Page [phone] to reach a provider 28/09 Admit Date: [...] 06/18/23 0419 06/17/23 0111 06/16/23 0330 06/15/23 042 WBC 9.4 8.4 9.5 8.2 6.7 HGB 13.9 14.5 14.2 14.5 16.1* HCT 41.7 42.8 43.0 42.7 48.2* PLATELET 244 258 256 260 253 MCV 93.1 91.1 93.5 91.0 94.7* Recent Labs 06/19/23 0322 06/18/23 1717 06/18/23 0419 06/17/23 1426 06/17/23 0501 06/17/23 0111 06/16/23 0901 06/16/23 0330 06/15/23 0818 06/15/23427 NA 137 137 138 135 136 137 [...] Cardiac Markers Recent Labs 06/15/23 0818 06/15/23 042 TROPONINTHS 33* 34* PROBNP -- 1,953* Endocrine [...] with positive cardiac markers. Patient transferred to [facility] for further work-up and evaluation. On [...] above Diet: Daily Healthy Menu Choices/Cardiac diet ([facility]-Diet) DVT Prophlaxis: eliquis Code status: Attempt Cardiopulmonary Resuscitation - Inpatient Disposition: Discharge Planning: AM-PAC Basic Mobility Raw Score: 24 PT: OT: PCP JOCY Franco [phone] * Eufemia Copeland MD - 06/18/2023 9:02 AM EDT CV HOSPITALIST 2 - [facility] DAILY PROGRESS NOTE Page [phone] to reach a provider 28/09 Admit Date: [...] with positive cardiac markers. Patient transferred to [facility] for further work-up and evaluation. On [...] above Diet: Daily Healthy Menu Choices/Cardiac diet ([facility]-Diet) DVT Prophlaxis: eliquis Code status: Attempt Cardiopulmonary Resuscitation - Inpatient Disposition: Discharge Planning: AM-PAC Basic Mobility Raw Score: 24 PT: OT: PCP JOCY Franco [phone] * Eufemia Copeland MD - 06/17/2023 12:02 PM EDT CV HOSPITALIST 2 - [facility] DAILY PROGRESS NOTE Page [phone] to reach a provider 28/09 Admit Date: [...] 89* < > 90* CO2 24 24 24 26 26 < > 33* [...] with positive cardiac markers. Patient transferred to [facility] for further work-up and evaluation. On [...] above Diet: Daily Healthy Menu Choices/Cardiac diet ([facility]-Diet) DVT Prophlaxis: eliquis Code status: Attempt Cardiopulmonary Resuscitation - Inpatient Disposition: Discharge Planning: AM-PAC Basic Mobility Raw Score: 24 PT: OT: PCP JOCY Franco [phone] * Calista Hernandez, RT - 06/17/2023 4:36 [...] 3:25 PM EDT CV HOSPITALIST 2 - [facility] DAILY PROGRESS NOTE Page [phone] to reach a provider 28/09 Admit Date: [...] 06/16/23 0330 06/15/23 2133 06/15/23 1747 06/15/23 81706/15/23 0428 NA 135 136 135 135 134* [...] and SVT ablation on 04/01/[address] [place], paroxysmal A-fib (diagnosed on 10/20/2022), HFpEF, pulmonary emboli on Eliquis, and restrictive lung disease secondary to obesity who presented to OSH with chest pain. Patient has recently undergone extensive workup for ACS that has been unrevealing. 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 The patient current presentation is different with positive cardiac markers. Patient transferred to [facility] for further work-up and evaluation. On [...] above Diet: Daily Healthy Menu Choices/Cardiac diet ([facility]-Diet) DVT Prophlaxis: eliquis Code status: Attempt Cardiopulmonary Resuscitation - Inpatient Disposition: Discharge Planning: AM-PAC Basic Mobility Raw Score: 24 PT: OT: PCP JOCY Franco [phone] documented in this encounter H&P Notes * [...] pain. The patient was recently admitted at [facility] from 04/16/23 to 04/19/2023 as a transfer from [facility] due to exertional chest pressure [...] etiology, patient was accepted for transfer to [facility]. 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 fluticasone propionate (FLONASE) 50 mcg/actuation [place], Suspension 1 spray by Each Nare [...] if hypotensive / cardiogenic shock / inferior NC / sildenafil within past 24 hours) - [...] for discharge to home with family support, [facility] for RN and OP Cardi clinic for f/u. Needs for Transition of Care: Plan for discharge is: Home w/ Services Outpatient Agency/Support Group Needs: None Home Health Services: Registered Nurse Agency Referrals & Follow-up Care: Contact information for follow-up Home Health & Hospice, [facility] [address] [place] [address] Transportation: taxi voucher -Ride confirmed entrance #2 [...] none Patient is insured through: Primary Insurance: [employer] [place] Pay[place] [employer] [place] / Plan[place] / Product Type: *No Product type* / Secondary Insurance: N/A Prescription Coverage: Yes This plan was formulated with input from patient, (please identify family/friend involved if applicable) and team. All are in agreement with plan. Nani Mendoza MSN-Ed, RN ACM Cardiac Research Nurse and Neuro/Neurocrit/ENT Stereotype Caster. * Care Management - Dixie Patterson - 07/09/2023 1:38 PM EDT Transportation for discharge was scheduled and confirmed through [employer]. [employer] will have a otr flatbed driver here at entrance #2 @4pm to [...] Visceral Aorta 80 16 Celiac Artery, Proximal [place] 119 26 Celiac Artery, Mid [place] 115 21 Celiac Artery, Distal No Vis Sup Mes Artery Proximal [place] 427 91 Sup Mes Artery Middle [place] 100 17 Sup Mes Artery Distal [place] 64 15 Hepatic Artery No Vis Splenic [...] sign off at this time, please page [phone] with any questions or concerns. Discussed with [...] Visceral Aorta 80 16 Celiac Artery, Proximal [place] 119 26 Celiac Artery, Mid [place] 115 21 Celiac Artery, Distal No Vis Sup Mes Artery Proximal [place] 427 91 Sup Mes Artery Middle [place] 100 17 Sup Mes Artery Distal [place] 64 15 Hepatic Artery No Vis Splenic [...] duplex Discussed with Dr. Kamara. Please page [phone] with any questions or concerns. 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 At [place], patient should be strict NPO. The plan as outlined above was discussed with Dr. Villa. Recommendations were discussed with primary team. Sis Keenan M.D. Fellow in Gastroenterology and Hepatology Pager #[phone] 07/06/2023 Associated attestation - Lashonda Villa MD [...] Lashonda Villa MD Gastroenterology and hepatology Pager: [phone] * Plan of Care - Olive Hernandez [...] Visceral Aorta 80 16 Celiac Artery, Proximal [place] 119 26 Celiac Artery, Mid [place] 115 21 Celiac Artery, Distal No Vis Sup Mes Artery Proximal [place] 427 91 Sup Mes Artery Middle [place] 100 17 Sup Mes Artery Distal [place] 64 15 Hepatic Artery No Vis Splenic [...] vascular lab database for comparison. EKG/Echo/Cath: Echo 4/16/24: Normal left ventricle size with mildly reduced LV systolic function. Mild global hypokinesis. LV ejection fraction is approximately 50%. Normal right ventricle. No significant valvular abnormalities. On comparison to the prior echo dated 04/17/2023, there has been a slight decrease in LV systolic function. Assessment: Lioda Roque is a 53 y.o. female admitted [...] duplex Discussed with Dr. Kamara. Please page [phone] with any questions or concerns. Gauri Vega [...] Visceral Aorta 80 16 Celiac Artery, Proximal [place] 119 26 Celiac Artery, Mid [place] 115 21 Celiac Artery, Distal No Vis Sup Mes Artery Proximal [place] 427 91 Sup Mes Artery Middle [place] 100 17 Sup Mes Artery Distal [place] 64 15 Hepatic Artery No Vis Splenic [...] ASA) Discussed with Dr. Kamara. Please page [phone] with any questions or concerns. Gauri Vega [...] Visceral Aorta 80 16 Celiac Artery, Proximal [place] 119 26 Celiac Artery, Mid [place] 115 21 Celiac Artery, Distal No Vis Sup Mes Artery Proximal [place] 427 91 Sup Mes Artery Middle [place] 100 17 Sup Mes Artery Distal [place] 64 15 Hepatic Artery No Vis Splenic [...] 07/02/[address] Kamara. Please page [phone] with any questions or concerns. Gauri Vega [...] Visceral Aorta 80 16 Celiac Artery, Proximal [place] 119 26 Celiac Artery, Mid [place] 115 21 Celiac Artery, Distal No Vis Sup Mes Artery Proximal [place] 427 91 Sup Mes Artery Middle [place] 100 17 Sup Mes Artery Distal [place] 64 15 Hepatic Artery No Vis Splenic [...] tonight Discussed with Dr. Kamara. Please page [phone] with any questions or concerns. Gauri Vega [...] Visceral Aorta 80 16 Celiac Artery, Proximal [place] 119 26 Celiac Artery, Mid [place] 115 21 Celiac Artery, Distal No Vis Sup Mes Artery Proximal [place] 427 91 Sup Mes Artery Middle [place] 100 17 Sup Mes Artery Distal [place] 64 15 Hepatic Artery No Vis Splenic [...] 245 Last 3 Lytes Recent Labs 06/29/23 02306/28/23 0152 06/27/232005 NA 138 138 141 K [...] Visceral Aorta 80 16 Celiac Artery, Proximal [place] 119 26 Celiac Artery, Mid [place] 115 21 Celiac Artery, Distal No Vis Sup Mes Artery Proximal [place] 427 91 Sup Mes Artery Middle [place] 100 17 Sup Mes Artery Distal [place] 64 15 Hepatic Artery No Vis Splenic [...] Dominguez PA - 06/28/2023 8:52 AM EDT [facility] Department of Cardiology Consult Progress Note [...] consultation required. SUHA LangstonC Cardiovascular Medicine Pager [phone] 06/28/2023 Associated attestation - Klarissa Henderson MD [...] Tellez MD - 06/24/2023 2:14 PM EDT [facility] Department of Cardiology Consult Progress Note [...] if further consultation required. 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 * Plan of Care - [...] other (see comments) (Has CPAP provided through [employer]) DME Needed at Discharge: No Patient is insured through: Primary Insurance: [employer] [place] [employer] [place] / Plan: [facility] [place] / Product Type: [...] of Discharge: 06/19/2023 BEA Killian, RN Inpatient Sole Sewer Hand- Cardiology Office of Care Management Pager #: [phone] * Plan of Care - Olive Hernandez [...] as Appropriate) * Initial Assessments - Machelle Lovnig RN - 06/15/2023 12:09 PM EDT Office of Care Management Initial Assessment Machelle Loving RN reviewed record and discussed patient with Care Team. Source of Information: Team, bedside nurse, medical record, and Patient Introduced self/reviewed role; services accepted. Admitted From: Home Reason for Hospitalization: Chest pain Covid Vaccination Status: 1st, 2nd & booster Last COVID test: Lab Results Component Value Date [id number] Not Detected 06/13/2021 Past medical History: Past [...] on file Who is your DPOA-HC?: Child (Brendan Jimenes is listed) Current Coping/Education/Information Needs: Understands reason [...] In the past 12 months has the BackType, gas, oil, or water RunTitle threatened to shut off services in your [...] comments) (Has CPAP provided through [facility]) Home Address confirmed as: [address] [facility] [address] Social & Family Supports: All names listed [...] Specific Information: Has a CPAP provided by [facility]/Prescription Coverage: Primary Insurance: [employer] [place] Pay[place] [employer] [place] / Plan: [employer] [place] / Product Type: *No Product type* / Secondary Insurance: N/A ; Prescription Coverage: Yes Preferred Pharmacy: [facility] [address] [address] [facility] [place], [place] - [address] [facility] [address] [facility] [address] [facility] [address] Status: Patient is a : No Primary Care Provider confirmed: JOCY Franco [phone] Patient/Caregiver Goals of Treatment: To figure out what is wrong Potential Needs for Transition of Care: other (see comments) ([facility] help) Agency Referrals: Not Applicable Transportation: no concerns Transportation Anticipated: agency ( can not drive , mother does not drive , Son does not have a car) Concerns to be Addressed: discharge planning Assessment: Patient is admitted to [facility] service for Chest pain Plan: [...] planning. 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 She has not had recent buttermaker helper monitoring for arrhythmia, though unlikely, is possible [...] AM EDT Tech [place] [phone] [place] 10/08/2023 9:30 AM EDT Office [place] [address] MD [facility] [place] [address] 10/21/2023 10:30 AM EDT Appointment [place] [address] Mary Reyes APRN [facility] [place] [address] 10/21/2023 11:30 AM EDT Appointment Nuclear Medicine at [place] [phone] Mary [place] [address] 10/21/2023 12:30 PM EDT Appointment [place] [address] [place] [address] 10/21/2023 1:30 PM EDT Appointment [place] [address] Mary [place] [address] 10/21/2023 2:30 PM EDT Appointment [place] [address] [place] [address] 10/26/2023 4:00 PM EDT Office Visit Cardiology at [address] [phone] Jaspreet Kinsey MD [facility] [place] [address] 10/28/2023 9:00 AM EDT Office [place] [address] 10/29/2023 10:00 AM EDT Clinical Support [place] [address] 10/29/2023 10:15 AM EDT Procedure visit [place] [address] 11/01/2023 5:00 PM EDT Office [place] [phone] Selene Browning, PhD [facility] [place] [address] 11/22/2023 4:40 PM EDT Office Visit Cardiology at [address] [phone] Porsha Mcdaniels MD [facility] [place] [address] 12/13/2023 10:00 AM EDT Clinical Support [place] [address] Lucero Romero, ALVA [facility] [place] [address] Scheduled Orders Name Type Priority Associated Diagnoses [...] Routine 07/07/2023 2:25 PM EDT Colonoscopy, Biopsy ([id number]) 07/07/2023 2:10 PM EDT post prandial pain Upper Gi Endoscopy, Biopsy ([id number]) 07/07/2023 2:10 PM EDT post prandial pain [...] Glucose Lvl 111 65 - 199 mg/dL [facility] Comment:Diabetes: >=200 mg/d L plus symptoms BUN 29(H) 8 - 18 mg/dL [facility] Creatinine 1.41(H) 0.70 - 1.20 mg/dL [facility] Sodium 140 135 - 145 mmol/L [facility] Potassium 3.6 3.5 - 5.0 mmol/L [facility] Comment: Please note: ??Patients with WBC >100,000 may have falsely elevated Potassium levels. ??For accurate Potassium quantification in these patients send serum separator tube (gold top) for subsequent determinations. ??Contact the Clinical Chemistry Laboratory if there are any questions. Chloride 99 98 - 107 mmol/L [facility] CO2 29 22 - 31 mmol/L [facility] Anion Gap 12 5 - 15 mmol/L [facility] Calcium 10.0 8.5 - 10.5 mg/dL [facility] Estimated GFR 44(L) >=60 mL/min/1. 73 m?? [facility] Comment: This patient's estimated GFR [...] In Lab Terrence Keating MD CHEMISTRY ORDERABLES [facility] [place] [address] * Differential, Automated (07/09/2023 3:03 AM EDT) Neutrophils % 51.4 % [facility] Neutr Abs (ANC) 3.43 1.70 - 6.10 x10(3)/mcL [facility] Lymphocytes % 31.4 % [facility] Lymphocytes Abs 2.1 0.9 - 3.2 x10(3)/[facility] Monocytes % 10.1 % [facility] Monocyte Abs 0.7 0.3 - 0.9 x10(3)/[facility] Eosinophils % 6.0 % [facility] Eosinophils Abs 0.4 0.0 - 0.4 x10(3)/[facility] Basophils % 0.8 % [facility] Basophils Abs 0.0 0.0 - 0.1 x10(3)/[facility] Immature Gran % 0.30 % [facility] Comment: Immature granulocytes(IG's)percentage and absolute count will include metamyelocytes, myelocytes, and promyelocytes. Blood smears from CBCs yielding IG's will be scanned manually for concordance. If this scan disagrees with the automated IG or if promyelocytes are noted, a manual differential will be performed. [place] Gran Abs 0.02 0.00 - 0.04 x10(3)/[facility] Blood 07/09/2023 3:03 AM EDT 07/09/2023 3:14 AM EDT Narrative Resulting Agency Comment Spec In Lab Terrence Keating MD HEMATOLOGY ORDERABLE S [facility] [place] [address] * (ABNORMAL) Hemogram (07/09/2023 3:03 AM EDT) WBC 6.7 4.0 - 9.5 x10(3)/[facility] RBC 3.87(L) 4.00 - 5.21 x10(6)/[facility] Hemoglobin 12.4 11.7 - 15.5 g/dL [facility] Hematocrit 36.8 35.7 - 45.8 % [facility] MCV 95.1(H) 82.6 - 94.4 fL [facility] MCH 32.0 27.1 - 32.[address] [facility] MCHC 33.7 31.7 - 35.0 g/dL [facility] Platelets 209 145 - 357 x10(3)/[facility] RDWSD 47.9(H) 37.0 - 46.[address] [facility] RDWCV 13.7 11.5 - 14.1 % [facility] MPV 10.5 7.6 - 12.[address] [facility] nRBC % Auto 0.0 % [facility] nRBC Abs Auto 0.000 0.000 - 0.000 x10(3)/[facility] Blood 07/09/2023 3:03 AM EDT 07/09/2023 3:14 AM EDT Narrative Resulting Agency Comment Spec In Lab Terrence Keating MD HEMATOLOGY ORDERABLE S Performing Organization Address City/State/[facility] Co de Phone Number [facility] [place] [address] * Heparin (unfractionated) Level (07/09/2023 3:03 AM EDT) Heparin UFH Level 0.52 IU/mL [facility] Comment: Heparin (anti-Xa) levels should [...] Lab Ailyn Irvin MD HEMATOLOGY ORDERABLE S [facility] [place] [address] * (ABNORMAL) Basic Metabolic Panel (non-fasting) (07/09/2023 3:03 AM EDT) Glucose Lvl 100 65 - 199 mg/dL [facility] Comment:Diabetes: >=200 mg/d L plus symptoms BUN 12 8 - 18 mg/dL [facility] Creatinine 1.24(H) 0.70 - 1.20 mg/dL [facility] Sodium 138 135 - 145 mmol/L [facility] Potassium 4.2 3.5 - 5.0 mmol/L [facility] Comment: Please note: ??Patients with WBC >100,000 may have falsely elevated Potassium levels. ??For accurate Potassium quantification in these patients send serum separator tube (gold top) for subsequent determinations. ??Contact the Clinical Chemistry Laboratory if there are any questions. Chloride 104 98 - 107 mmol/L [facility] CO2 22 22 - 31 mmol/L [facility] Anion Gap 12 5 - 15 mmol/L [facility] Calcium 9.3 8.5 - 10.5 mg/dL [facility] Estimated GFR 52(L) >=60 mL/min/1. 73 m?? [facility] Comment: This patient's estimated GFR [...] MD CHEMISTRY ORDERABL ES Performing Organization Address [facility] Co de Phone Number [facility] [place] [address] * Phosphorus (07/09/2023 3:03 AM EDT) Phosphorus 4.5 2.5 - 4.5 mg/dL [facility] Blood 07/09/2023 3:03 AM EDT 07/09/2023 3:14 AM EDT Narrative Resulting Agency Comment Spec In Lab Eufemia Copeland MD CHEMISTRY ORDERABL ES Performing Organization Address [facility] Co de Phone Number [facility] [place] [address] * Magnesium (07/09/2023 3:03 AM EDT) Magnesium 0.91 0.69 - 1.07 mmol/L [facility] Blood 07/09/2023 3:03 AM EDT 07/09/2023 3:14 AM EDT Narrative Resulting Agency Comment Spec In Lab Eufemia Coepland MD CHEMISTRY ORDERABL ES Performing Organization Address [facility] de Phone Number [facility] [place] [address] * Heparin (unfractionated) Level (07/08/2023 12:02 PM EDT) Heparin UFH Level 0.45 IU/mL [facility] Comment: Heparin (anti-Xa) levels should [...] de Phone Number [facility] [place] [address] * EKG 12 Lead (07/08/2023 9:58 AM EDT) Ventricular rate 66 BPM MUSE SYSTEM Atrial Rate 66 BPM MUSE SYSTEM P-R Interval 178 ms MUSE SYSTEM QRS Duration 92 ms MUSE SYSTEM Q-T Interval 486 ms MUSE SYSTEM QTC Calculated (Bezet) 509 ms MUSE SYSTEM Calculated P [place] 29 degrees MUSE SYSTEM Calculated R [place] 33 degrees MUSE SYSTEM Calculated T [place] 29 degrees MUSE SYSTEM INTERPRETATION Normal sinus rhythm Nonspecific ST and T wave abnormality Prolonged QT Abnormal ECG When compared with ECG of 04-JUL-2023 11:41, Criteria for Septal infarct are no longer Present I personally reviewed the tracing and edited the fellows interpretation Confirmed by fellow MD Keyshawn, Katalina ([id number]) on 07/08/2023 3:18:07 PM Confirmed by MD Beatriz, Klarissa ([id number]) on 07/09/2023 6:15:21 AM MUSE SYSTEM 07/08/2023 9:58 AM EDT 07/09/2023 6:15 AM EDT Lisa Beck MD ECG ORDERABLES Performing Organization Address [facility] Co de Phone Number MUSE SYSTEM * Differential, Automated (07/08/2023 5:52 AM EDT) Neutrophils % 60.6 % [facility] Neutr Abs (ANC) 4.42 1.70 - 6.10 x10(3)/mcL [facility] Lymphocytes % 24.8 % [facility] Lymphocytes Abs 1.8 0.9 - 3.2 x10(3)/[facility] Monocytes % 9.2 % [facility] Monocyte Abs 0.7 0.3 - 0.9 x10(3)/[facility] Eosinophils % 4.5 % [facility] Eosinophils Abs 0.3 0.0 - 0.4 x10(3)/[facility] Basophils % 0.5 % [facility] Basophils Abs 0.0 0.0 - 0.1 x10(3)/[facility] Immature Gran % 0.40 % [facility] Comment: Immature granulocytes(IG's)percentage and absolute count will include metamyelocytes, myelocytes, and promyelocytes. Blood smears from CBCs yielding IG's will be scanned manually for concordance. If this scan disagrees with the automated IG or if promyelocytes are noted, a manual differential will be performed. [place]onda Gran Abs 0.03 0.00 - 0.04 x10(3)/[facility] Blood 07/08/2023 5:52 AM EDT 07/08/2023 5:58 AM EDT Narrative Resulting Agency Comment Spec In Lab Terrence Keating MD HEMATOLOGY ORDERABLE S [facility] [place] [address] * (ABNORMAL) Hemogram (07/08/2023 5:52 AM EDT) WBC 7.3 4.0 - 9.5 x10(3)/[facility] RBC 3.94(L) 4.00 - 5.21 x10(6)/[facility] Hemoglobin 12.3 11.7 - 15.5 g/dL [facility] Hematocrit 36.3 35.7 - 45.8 % [facility] MCV 92.1 82.6 - 94.[address] [facility] MCH 31.2 27.1 - 32.[address] [facility] MCHC 33.9 31.7 - 35.0 g/dL [facility] Platelets 207 145 - 357 x10(3)/[facility] RDWSD 44.6 37.0 - 46.[address] [facility] RDWCV 13.3 11.5 - 14.1 % [facility] MPV 10.5 7.6 - 12.9 [facility] nRBC % Auto 0.0 % [facility] nRBC Abs Auto 0.000 0.000 - 0.000 x10(3)/[facility] Blood 07/08/2023 5:52 AM EDT 07/08/2023 5:58 AM EDT Narrative Resulting Agency Comment Spec In Lab Terrence Keating MD HEMATOLOGY ORDERABLE S [facility] [place] [address] * Heparin (unfractionated) Level (07/08/2023 5:52 AM EDT) Heparin UFH Level 0.37 IU/mL [facility] Comment: Heparin (anti-Xa) levels should [...] Lab Ailyn Irvin MD HEMATOLOGY ORDERABLE S [facility] [place] [address] * (ABNORMAL) Basic Metabolic Panel (non-fasting) (07/08/2023 5:52 AM EDT) Glucose Lvl 102 65 - 199 mg/dL [facility] Comment:Diabetes: >=200 mg/d L plus symptoms BUN 14 8 - 18 mg/dL [facility] Creatinine 1.30(H) 0.70 - 1.20 mg/dL [facility] Sodium 139 135 - 145 mmol/L [facility] Potassium 3.2(L) 3.5 - 5.0 mmol/L [facility] Comment: Please note: ??Patients with WBC >100,000 may have falsely elevated Potassium levels. ??For accurate Potassium quantification in these patients send serum separator tube (gold top) for subsequent determinations. ??Contact the Clinical Chemistry Laboratory if there are any questions. Chloride 101 98 - 107 mmol/L [facility] CO2 25 22 - 31 mmol/L [facility] Anion Gap 13 5 - 15 mmol/L [facility] Calcium 9.3 8.5 - 10.5 mg/dL [facility] Estimated GFR 49(L) >=60 mL/min/1. 73 m?? [facility] Comment: This patient's estimated GFR [...] MD CHEMISTRY ORDERABL ES Performing Organization Address [facility]/ZIP Co de Phone Number [facility] [place] [address] * Phosphorus (07/08/2023 5:52 AM EDT) Phosphorus 4.3 2.5 - 4.5 mg/dL [facility] Blood 07/08/2023 5:52 AM EDT 07/08/2023 5:58 AM EDT Narrative Resulting Agency Comment Spec In Lab Eufemia Copeland MD CHEMISTRY ORDERABL ES Performing Organization Address [facility] System/[facility] Co de Phone Number [facility] [place] [address] * Magnesium (07/08/2023 5:52 AM EDT) Magnesium 0.89 0.69 - 1.07 mmol/L [facility] Blood 07/08/2023 5:52 AM EDT 07/08/2023 5:58 AM EDT Narrative Resulting Agency Comment Spec In Lab Eufemia Copeland MD CHEMISTRY ORDERABL ES Performing Organization Address [facility] Co de Phone Number [facility] [place] [address] * Heparin (unfractionated) Level (07/08/2023 12:00 AM EDT) Heparin UFH Level 0.22 IU/mL [facility] Comment: Heparin (anti-Xa) levels should [...] MD HEMATOLOGY ORDERABLE S Performing Organization Address [facility] Co de Phone Number [facility] [place] [address] * Specimen to Pathology (07/07/2023 2:55 PM EDT) AP Specimen 07/07/2023 2:55 PM EDT 07/07/2023 2:[address] [facility] - 07/07/2023 2:55 PM EDT Specimen requisition ordered. ??Separate Pathology report to follow Terrence Keating MD PATHOLOGY/CYTOLOGY O RUMA Performing Organization Address [facility] Co de Phone Number [facility] [place] [address] * Specimen to Pathology (07/07/2023 2:38 PM EDT) AP Specimen 07/07/2023 2:38 PM EDT 07/07/2023 2:[address] [facility] - 07/07/2023 2:38 PM EDT Specimen requisition ordered. ??Separate Pathology report to follow Terrence Keating MD PATHOLOGY/CYTOLOGY O RUMA Performing Organization Address [facility] Co de Phone Number [facility] [place] [address] * Specimen to Pathology (07/07/2023 2:38 PM EDT) AP Specimen 07/07/2023 2:38 PM EDT 07/07/2023 2:[address] [facility] - 07/07/2023 2:38 PM EDT Specimen requisition ordered. ??Separate Pathology report to follow Terrence Keating MD PATHOLOGY/CYTOLOGY O RUMA [facility] [place] [address] * Surgical Pathology Report (07/07/2023 2:25 PM EDT) FINAL DIAGNOSIS (AP) [id number] ? Location: [facility]; [facility]; The signing pathologist has (i) examined the [...] Sapna Verified: ??07/19/2023 13:25 ??Pathologist Performed at: ??-[facility] Dept. of Pathology, [place] [address] Internal Controls Analyst: Vangie Lu MD, FCAP, ??CLIA Certificate: [id number] SPECIMEN(S) SUBMITTED A - duodenal biopsies rule [...] labeled C1-C2. ??sdy 07/19/2023 1:[address] [facility] 07/07/2023 2:25 PM EDT Lashonda Villa MD PATHOLOGY/CYTOLOGY O RUMA [facility] [place] [place] [address] * COLONOSCOPY (07/07/2023 1:39 PM EDT) COLONOSCOPY [facility] Endoscopy Procedure Date: 07/07/2023 1:39 PM ? Patient Name: Loida Roque ? Date of : 1970 ? Age: 53 ? Order #: [id number] ? Instrument Name: [id number]- [id number] ? Procedure: ? Colonoscopy Indications: ? Abdominal pain, Diarrhea Providers: ? Lashonda Villa MD, [place] ? Merecdes [place] Agan Referring MD: ? Medicines: [...] ? was evaluated using the BBPS ? ([place] Bowel Preparation Scale) ? with scores of: [...] Procedure Code(s): ? --- Professional --- ? 21248, Colonoscopy, flexible; with ? biopsy, single or multiple CPT copyright 2021 [employer]. All rights reserved. The codes documented in this report are preliminary and upon road test examiner review may be revised to meet current [...] 1 EIA Negative for Shiga Toxin [address] [facility] Stool 07/07/2023 12:1 0 PM EDT 07/07/2023 12:53 PM EDT Narrative Resulting Agency Comment Spec In Lab Ailyn Irvin MD MICROBIOLOGY - GENER AL ORDERABLES Performing Organization Address City/[facility]/ZIP Co de Phone Number [facility] [place] [address] * Campylobacter Antigen (07/07/2023 12:10 PM EDT) Pathologist [facility] Campylobacter Ag Immunoassay Negative for Campylobacter Antigen [facility] Stool 07/07/2023 12:1 0 PM EDT 07/07/2023 12:53 PM EDT Narrative Resulting Agency Comment Spec In Lab Ailyn Irvin MD MICROBIOLOGY - GENER AL ORDERABLES Performing Organization Address City/[facility] Co de Phone Number [facility] [place] [address] * Stool culture (07/07/2023 12:10 PM EDT) Pathologist [facility] Stool Culture No enteric pathogens isolated [facility] Stool 07/07/2023 12:1 0 PM EDT 07/07/2023 12:53 PM EDT Narrative Resulting Agency Comment Spec In Lab Ailyn Irvin MD MICROBIOLOGY - GENER AL ORDERABLES Performing Organization Address City/[facility]/ZIP Co de Phone Number [facility] [place] [address] * (ABNORMAL) Differential, Automated (07/07/2023 3:51 AM EDT) Neutrophils % 58.9 % [facility] Neutr Abs (ANC) 4.67 1.70 - 6.10 x10(3)/mc L [facility] Lymphocytes % 24.8 % [facility] Lymphocytes Abs 2.0 0.9 - 3.2 x10(3)/[facility] LABORATORY Monocytes % 9.4 % [facility] Monocyte Abs 0.7 0.3 - 0.9 x10(3)/[facility] LAB[facility]AT[facility] Eosinophils % 6.1 % [facility] Eosinophils Abs 0.5(H) 0.0 - 0.4 x10(3)/[facility] Basophils % 0.5 % [facility] Basophils Abs 0.0 0.0 - 0.1 x10(3)/[facility] LABORATORY Immature Gran % 0.30 % [facility] Comment: Immature granulocytes(IG's)percentage and absolute count will include metamyelocytes, myelocytes, and promyelocytes. Blood smears from CBCs yielding IG's will be scanned manually for concordance. If this scan disagrees with the automated IG or if promyelocytes are noted, a manual differential will be performed. Shonda Gran Abs 0.02 0.00 - 0.04 x10(3)/[facility] Blood 07/07/2023 3:51 AM EDT 07/07/2023 4:08 AM EDT Narrative Resulting Agency Comment Spec In Lab Terrence Keating MD HEMATOLOGY ORDERABLE S [facility] [place] [address] * Hemogram (07/07/2023 3:51 AM EDT) WBC 7.9 4.0 - 9.5 x10(3)/[facility] LABORATORY RBC 4.42 4.00 - 5.21 x10(6)/[facility] LABORATORY Hemoglobin 13.8 11.7 - 15.5 g/dL [facility] Hematocrit 41.0 35.7 - 45.8 % [facility] MCV 92.8 82.6 - 94.[address] [facility] MCH 31.2 27.1 - 32.[address] [facility] MCHC 33.7 31.7 - 35.0 g/dL [facility] Platelets 255 145 - 357 x10(3)/[facility] LABORATORY RDWSD 44.8 37.0 - 46.[address] [facility] RDWCV 13.2 11.5 - 14.1 % [facility] MPV 10.6 7.6 - 12.9 [facility] LABORATORY nRBC % Auto 0.0 % [facility] nRBC Abs Auto 0.000 0.000 - 0.000 x10(3)/[facility] Blood 07/07/2023 3:51 AM EDT 07/07/2023 4:08 AM EDT Narrative Resulting Agency Comment Spec In Lab Terrence Keating MD HEMATOLOGY ORDERABLE S [facility] [place] [address] * Heparin (unfractionated) Level (07/07/2023 3:51 AM EDT) Heparin UFH Level 0.33 IU/mL [facility] Comment: Heparin (anti-Xa) levels should [...] Lab Terrence Keating MD HEMATOLOGY ORDERABLE S [facility] [place] [address] * (ABNORMAL) Basic Metabolic Panel (non-fasting) (07/07/2023 3:51 AM EDT) Glucose Lvl 101 65 - 199 mg/dL [facility] Comment:Diabetes: >=200 mg/d L plus symptoms BUN 18 8 - 18 mg/dL [facility] Creatinine 1.30(H) 0.70 - 1.20 mg/dL [facility] Sodium 135 135 - 145 mmol/L [facility] Potassium 3.5 3.5 - 5.0 mmol/L [facility] Comment: Please note: ??Patients with WBC >100,000 may have falsely elevated Potassium levels. ??For accurate Potassium quantification in these patients send serum separator tube (gold top) for subsequent determinations. ??Contact the Clinical Chemistry Laboratory if there are any questions. Chloride 96(L) 98 - 107 mmol/L [facility] CO2 23 22 - 31 mmol/L [facility] Anion Gap 16(H) 5 - 15 mmol/L [facility] Calcium 9.4 8.5 - 10.5 mg/dL [facility] Estimated GFR 49(L) >=60 mL/min/1. 73 m?? [facility] Comment: This patient's estimated GFR [...] MD CHEMISTRY ORDERABL ES Performing Organization Address [facility] Co de Phone Number [facility] [place] [address] * Phosphorus (07/07/2023 3:51 AM EDT) Phosphorus 4.0 2.5 - 4.5 mg/dL [facility] Blood 07/07/2023 3:51 AM EDT 07/07/2023 4:08 AM EDT Narrative Resulting Agency Comment Spec In Lab Eufemia Copeland MD CHEMISTRY ORDERABL ES Performing Organization Address [facility] de Phone Number [facility] [place] [address] * Magnesium (07/07/2023 3:51 AM EDT) Magnesium 0.87 0.69 - 1.07 mmol/L [facility] Blood 07/07/2023 3:51 AM EDT 07/07/2023 4:08 AM EDT Narrative Resulting Agency Comment Spec In Lab Eufemia Copeland MD CHEMISTRY ORDERABL ES Performing Organization Address [facility] Co de Phone Number [facility] [place] [address] * Hepatic Function Panel (07/07/2023 3:51 AM EDT) Total Protein 7.5 6.1 - 8.0 g/dL [facility] Albumin 4.4 3.2 - 5.2 g/dL [facility] AST 15 0 - 30 unit/L [facility] ALT 20 0 - 30 unit/L [facility] Alk Phos 54 35 - 105 unit/L [facility] Total Bilirubin 0.4 0.2 - 1.3 mg/dL [facility] Bili, Direct 0.1 0.0 - 0.3 mg/dL [facility] Blood 07/07/2023 3:51 AM EDT 07/07/2023 4:08 AM EDT Narrative Resulting Agency Comment Spec In Lab Ailyn Irvin MD CHEMISTRY ORDERABLES Performing Organization Address City/[facility]/ZIP Co de Phone Number [facility] [place] [address] * Giardia/Cryptosporidium Antigens ([facility]/CGP/APD/NLH) (07/07/2023 12:38 AM EDT) Giardia Screen Negative Negative [facility] Comment:Examination for othe r intestinal parasites requires foreign travel history. Cryptosporidium Screen Negative Negative [facility] Stool 07/07/2023 12:3 8 AM EDT 07/07/2023 7:56 AM EDT Narrative Resulting Agency Comment Spec In Lab Ailyn Irvin MD MICROBIOLOGY - GENER AL ORDERABLES Performing Organization Address City/[facility]/ZIP Co de Phone Number [facility] [place] [address] * Hepatic Function Panel (07/06/2023 3:41 PM EDT) Total Protein 7.6 6.1 - 8.0 g/dL [facility] Albumin 4.3 3.2 - 5.2 g/dL [facility] AST 20 0 - 30 unit/L [facility] ALT 22 0 - 30 unit/L [facility] Alk Phos 58 35 - 105 unit/L [facility] Total Bilirubin 0.4 0.2 - 1.3 mg/dL [facility] Bili, Direct 0.1 0.0 - 0.3 mg/dL [facility] Blood 07/06/2023 3:41 PM EDT 07/06/2023 4:00 PM EDT Narrative Resulting Agency Comment Spec In Lab Terrence Keating MD CHEMISTRY ORDERABLES Performing Organization Address City/[facility]/ZIP Co de Phone Number [facility] [place] [address] * Hepatic Function Panel (07/06/2023 3:54 AM EDT) Pathologist [facility] Total Protein 7.6 6.1 - 8.0 g/dL [facility] Albumin 4.3 3.2 - 5.2 g/dL [facility] AST Not Perf 0 - 30 [facility] Comment: Unable to quantitate due to sample hemolysis. ??Sample redraw suggested. Called by: abimbola, Read back by: Ana Paula Borja, Date/Time:07/06/23 14:08. ALT 25 0 - 30 unit/L [facility] Alk Phos 58 35 - 105 unit/L [facility] Total Bilirubin 0.4 0.2 - 1.3 mg/dL [facility] Bili, Direct Not Perf 0.0 - 0.3 [facility] Blood Venous Draw / Unknown 07/06/2023 3:54 AM EDT 07/06/2023 4:18 AM EDT Narrative Resulting Agency Comment Spec In Lab Terrence Keating MD CHEMISTRY ORDERABLES Performing Organization Address City/[facility]/ZIP Co de Phone Number [facility] [place] [address] * (ABNORMAL) Differential, Automated (07/06/2023 3:54 AM EDT) Pathologist [facility] Neutrophils % 56.6 % [facility] Neutr Abs (ANC) 4.34 1.70 - 6.10 x10(3)/mc L [facility] Lymphocytes % 26.1 % [facility] Lymphocytes Abs 2.0 0.9 - 3.2 x10(3)/[facility] LABORATORY Monocytes % 9.6 % [facility] Monocyte Abs 0.7 0.3 - 0.9 x10(3)/[facility] Eosinophils % 6.6 % [facility] Eosinophils Abs 0.5(H) 0.0 - 0.4 x10(3)/[facility] LAB[facility] Basophils % 0.7 % [facility] Basophils Abs 0.0 0.0 - 0.1 x10(3)/[facility] LABORAT[facility] Immature Gran % 0.40 % [facility] Comment: Immature granulocytes(IG's)percentage and absolute count will include metamyelocytes, myelocytes, and promyelocytes. Blood smears from CBCs yielding IG's will be scanned manually for concordance. If this scan disagrees with the automated IG or if promyelocytes are noted, a manual differential will be performed. Shonda Gran Abs 0.03 0.00 - 0.04 x10(3)/[facility] LAB[facility]ATORY Blood 07/06/2023 3:54 AM EDT 07/06/2023 4:12 AM EDT Narrative Resulting Agency Comment Spec In Lab Terrence Keating MD HEMATOLOGY ORDERABLE S Performing Organization Address City/State/[facility] Co de Phone Number [facility] [place] [address] * (ABNORMAL) Hemogram (07/06/2023 3:54 AM EDT) WBC 7.7 4.0 - 9.5 x10(3)/[facility] LABORATORY RBC 4.62 4.00 - 5.21 x10(6)/[facility] LAB[facility]ORY Hemoglobin 14.7 11.7 - 15.5 g/dL [facility] Hematocrit 43.8 35.7 - 45.8 % [facility] MCV 94.8(H) 82.6 - 94.[address] [facility] MCH 31.8 27.1 - 32.[address] [facility] MCHC 33.6 31.7 - 35.0 g/dL [facility] Platelets 243 145 - 357 x10(3)/[facility] LABORATORY RDWSD 47.2(H) 37.0 - 46.0 [facility] LABORATORY RDWCV 13.5 11.5 - 14.1 % [facility] MPV 10.4 7.6 - 12.9 [facility] LAB[facility]ORY nRBC % Auto 0.0 % [facility] nRBC Abs Auto 0.000 0.000 - 0.000 x10(3)/[facility] Blood 07/06/2023 3:54 AM EDT 07/06/2023 4:12 AM EDT Narrative Resulting Agency Comment Spec In Lab Terrence Keating MD HEMATOLOGY ORDERABLE S [facility] [place] [address] * (ABNORMAL) Basic Metabolic Panel (non-fasting) (07/06/2023 3:54 AM EDT) Glucose Lvl 107 65 - 199 mg/dL [facility] Comment:Diabetes: >=200 mg/d L plus symptoms BUN 16 8 - 18 mg/dL [facility] Creatinine 1.25(H) 0.70 - 1.20 mg/dL [facility] Sodium 135 135 - 145 mmol/L [facility] Potassium 3.9 3.5 - 5.0 mmol/L [facility] Comment: Please note: ??Patients with WBC >100,000 may have falsely elevated Potassium levels. ??For accurate Potassium quantification in these patients send serum separator tube (gold top) for subsequent determinations. ??Contact the Clinical Chemistry Laboratory if there are any questions. Chloride 98 98 - 107 mmol/L [facility] CO2 23 22 - 31 mmol/L [facility] Anion Gap 14 5 - 15 mmol/L [facility] Calcium 10.0 8.5 - 10.5 mg/dL [facility] Estimated GFR 51(L) >=60 mL/min/1. 73 m?? [facility] Comment: This patient's estimated GFR [...] MD CHEMISTRY ORDERABL ES Performing Organization Address [facility] Co de Phone Number [facility] [place] [address] * Phosphorus (07/06/2023 3:54 AM EDT) Phosphorus 4.5 2.5 - 4.5 mg/dL [facility] Blood 07/06/2023 3:54 AM EDT 07/06/2023 4:18 AM EDT Narrative Resulting Agency Comment Spec In Lab Eufemia Copeland MD CHEMISTRY ORDERABL ES Performing Organization Address [facility] Co de Phone Number [facility] [place] [address] * Magnesium (07/06/2023 3:54 AM EDT) Magnesium 0.97 0.69 - 1.07 mmol/L [facility] Blood 07/06/2023 3:54 AM EDT 07/06/2023 4:18 AM EDT Narrative Resulting Agency Comment Spec In Lab Eufemia Copeland MD CHEMISTRY ORDERABL ES Performing Organization Address [facility] Co de Phone Number [facility] [place] [address] * Heparin (unfractionated) Level (07/06/2023 3:54 AM EDT) Heparin UFH Level 0.31 IU/mL [facility] Comment: Heparin (anti-Xa) levels should [...] Lab Ailyn Irvin MD HEMATOLOGY ORDERABLE S [facility] [place] [address] * Amylase (07/05/2023 5:44 PM EDT) Amylase 35 28 - 100 unit/L [facility] Blood 07/05/2023 5:44 PM EDT 07/05/2023 6:00 PM EDT Narrative Resulting Agency Comment Spec In Lab Terrence Keating MD CHEMISTRY ORDERABLES [facility] [place] [address] * Lipase (07/05/2023 5:44 PM EDT) Lipase 17 0 - 60 unit/L [facility] Blood 07/05/2023 5:44 PM EDT 07/05/2023 6:00 PM EDT Narrative Resulting Agency Comment Spec In Lab Terrence Keating MD CHEMISTRY ORDERABLES Performing Organization Address [facility] Co de Phone Number [facility] [place] [address] * (ABNORMAL) Basic Metabolic Panel (non-fasting) (07/05/2023 5:44 PM EDT) Pathologist [facility] Glucose Lvl 130 65 - 199 mg/dL [facility] Comment:Diabetes: >=200 mg/d L plus symptoms BUN 17 8 - 18 mg/dL [facility] Creatinine 1.30(H) 0.70 - 1.20 mg/dL [facility] Sodium 134(L) 135 - 145 mmol/L [facility] Potassium 3.7 3.5 - 5.0 mmol/L [facility] Comment: Please note: ??Patients with WBC >100,000 may have falsely elevated Potassium levels. ??For accurate Potassium quantification in these patients send serum separator tube (gold top) for subsequent determinations. ??Contact the Clinical Chemistry Laboratory if there are any questions. Chloride 98 98 - 107 mmol/L [facility] CO2 21(L) 22 - 31 mmol/L [facility] Anion Gap 15 5 - 15 mmol/L [facility] Calcium 9.6 8.5 - 10.5 mg/dL [facility] Estimated GFR 49(L) >=60 mL/min/1. 73 m?? [facility] Comment: This patient's estimated GFR [...] Keating MD CHEMISTRY ORDERABLES Performing Organization Address City/State/[facility] Co de Phone Number [facility] [place] [address] * Duplex Study Visceral Arteries, Comp (07/05/2023 9:46 AM EDT) VB Text Report Department: Vascular Surgery Lab Patient: [id number] (LOIDA ROQUE) CPT: [id number] Referring Physician: TERRENCE KEATING ?? Phone: Indications: [...] ?Bi-Triphasic ?101 ?11 ?? Hepatic Artery ? [place]-Biphasic ? 123 ?23 ?? Splenic Artery ? [place]-Biphasic ? 122 ?24 ?? Inf Mes Artery [...] 5:05 AM EDT) Neutrophils % 63.0 % [facility] Neutr Abs (ANC) 5.59 1.70 - 6.10 x10(3)/[facility] LABORATORY Lymphocytes % 22.4 % [facility] Lymphocytes Abs 2.0 0.9 - 3.2 x10(3)/[facility] LABOR[facility]ORY Monocytes % 9.7 % [facility] Monocyte Abs 0.9 0.3 - 0.9 x10(3)/[facility] LAB[facility] Eosinophils % 4.1 % [facility] Eosinophils Abs 0.4 0.0 - 0.4 x10(3)/[facility] Basophils % 0.6 % [facility] Basophils Abs 0.0 0.0 - 0.1 x10(3)/[facility] LABOR[facility]ORY Immature Gran % 0.20 % [facility] Comment: Immature granulocytes(IG's)percentage and absolute count will include metamyelocytes, myelocytes, and promyelocytes. Blood smears from CBCs yielding IG's will be scanned manually for concordance. If this scan disagrees with the automated IG or if promyelocytes are noted, a manual differential will be performed. Shonda Gran Abs 0.02 0.00 - 0.04 x10(3)/[facility] Blood 07/05/2023 5:05 AM EDT 07/05/2023 5:17 AM EDT Narrative Resulting Agency Comment Spec In Lab Terrence Keating MD HEMATOLOGY ORDERABLE S [facility] [place] [address] * (ABNORMAL) Hemogram (07/05/2023 5:05 AM EDT) WBC 8.9 4.0 - 9.5 x10(3)/[facility] LAB[facility]ORY RBC 4.42 4.00 - 5.21 x10(6)/[facility] Hemoglobin 13.7 11.7 - 15.5 g/dL [facility] Hematocrit 41.4 35.7 - 45.8 % [facility] MCV 93.7 82.6 - 94.[address] [facility] MCH 31.0 27.1 - 32.[address] [facility] MCHC 33.1 31.7 - 35.0 g/dL [facility] Platelets 245 145 - 357 x10(3)/[facility] LABORATORY RDWSD 47.1(H) 37.0 - 46.[address] [facility] RDWCV 13.7 11.5 - 14.1 % [facility] MPV 10.8 7.6 - 12.[address] [facility] nRBC % Auto 0.0 % [facility] nRBC Abs Auto 0.000 0.000 - 0.000 x10(3)/[facility] Blood 07/05/2023 5:05 AM EDT 07/05/2023 5:17 AM EDT Narrative Resulting Agency Comment Spec In Lab Terrence Keating MD HEMATOLOGY ORDERABLE S [facility] [place] [address] * Heparin (unfractionated) Level (07/05/2023 5:05 AM EDT) Heparin UFH Level 0.35 IU/mL [facility] Comment: Heparin (anti-Xa) levels should [...] Lab Ailyn Irvin MD HEMATOLOGY ORDERABLE S [facility] [place] [address] * (ABNORMAL) Basic Metabolic Panel (non-fasting) (07/05/2023 5:05 AM EDT) Glucose Lvl 114 65 - 199 mg/dL [facility] Comment:Diabetes: >=200 mg/d L plus symptoms BUN 19(H) 8 - 18 mg/dL [facility] Creatinine 1.51(H) 0.70 - 1.20 mg/dL [facility] Sodium 134(L) 135 - 145 mmol/L [facility] Potassium 3.8 3.5 - 5.0 mmol/L [facility] Comment: Please note: ??Patients with WBC >100,000 may have falsely elevated Potassium levels. ??For accurate Potassium quantification in these patients send serum separator tube (gold top) for subsequent determinations. ??Contact the Clinical Chemistry Laboratory if there are any questions. Chloride 97(L) 98 - 107 mmol/L [facility] CO2 25 22 - 31 mmol/L [facility] Anion Gap 12 5 - 15 mmol/L [facility] Calcium 10.0 8.5 - 10.5 mg/dL [facility] Estimated GFR 41(L) >=60 mL/min/1. 73 m?? [facility] Comment: This patient's estimated GFR [...] MD CHEMISTRY ORDERABL ES Performing Organization Address [facility] Co de Phone Number [facility] [place] [address] * (ABNORMAL) Phosphorus (07/05/2023 5:05 AM EDT) Pathologist [facility] Phosphorus 5.0(H) 2.5 - 4.5 mg/dL [facility] Blood 07/05/2023 5:05 AM EDT 07/05/2023 5:17 AM EDT Narrative Resulting Agency Comment Spec In Lab Eufemia Copeland MD CHEMISTRY ORDERABL ES Performing Organization Address [facility] Co de Phone Number [facility] [place] [address] * Magnesium (07/05/2023 5:05 AM EDT) Pathologist [facility] Magnesium 1.01 0.69 - 1.07 mmol/L [facility] Blood 07/05/2023 5:05 AM EDT 07/05/2023 5:17 AM EDT Narrative Resulting Agency Comment Spec In Lab Eufemia Copeland MD CHEMISTRY ORDERABL ES Performing Organization Address [facility] Co de Phone Number [facility] [place] [address] * EKG 12 Lead (07/04/2023 11:41 AM EDT) Ventricular rate 76 BPM MUSE SYSTEM Atrial Rate 76 BPM MUSE SYSTEM P-R Interval 174 ms MUSE SYSTEM QRS Duration 88 ms MUSE SYSTEM Q-T Interval 450 ms MUSE SYSTEM QTC Calculated (Bezet) 506 ms MUSE SYSTEM Calculated P [place] 36 degrees MUSE SYSTEM Calculated R [place] 35 degrees MUSE SYSTEM Calculated T [place] 37 degrees MUSE SYSTEM INTERPRETATION Normal sinus rhythm Possible Left atrial enlargement Septal infarct , age undetermined Prolonged QT Abnormal ECG When compared with ECG of 03-JUL-2023 21:36, ST no longer depressed in Anterior leads Nonspecific T wave abnormality now evident in Anterior leads Confirmed by MD Beatriz, Klarissa (Ashley) on 07/05/2023 6:21:29 AM MUSE SYSTEM 07/04/2023 11:4 1 AM EDT 07/05/2023 6:21 AM EDT Lisa Beck MD ECG ORDERABLES MUSE SYSTEM * Differential, Automated (07/04/2023 3:47 AM EDT) Neutrophils % 63.5 % [facility] Neutr Abs (ANC) 5.19 1.70 - 6.10 x10(3)/[facility] Lymphocytes % 24.4 % [facility] Lymphocytes Abs 2.0 0.9 - 3.2 x10(3)/[facility] Monocytes % 8.1 % [facility] Monocyte Abs 0.7 0.3 - 0.9 x10(3)/[facility] Eosinophils % 3.4 % [facility] Eosinophils Abs 0.3 0.0 - 0.4 x10(3)/[facility] Basophils % 0.4 % [facility] Basophils Abs 0.0 0.0 - 0.1 x10(3)/[facility] Immature Gran % 0.20 % [facility] Comment: Immature granulocytes(IG's)percentage and absolute count will include metamyelocytes, myelocytes, and promyelocytes. Blood smears from CBCs yielding IG's will be scanned manually for concordance. If this scan disagrees with the automated IG or if promyelocytes are noted, a manual differential will be performed. Shonda Gran Abs 0.02 0.00 - 0.04 x10(3)/[facility] Blood 07/04/2023 3:47 AM EDT 07/04/2023 4:15 AM EDT Narrative Resulting Agency Comment Spec In Lab Terrence Keating MD HEMATOLOGY ORDERABLE S [facility] [place] [address] * (ABNORMAL) Hemogram (07/04/2023 3:47 AM EDT) WBC 8.2 4.0 - 9.5 x10(3)/[facility] RBC 4.26 4.00 - 5.21 x10(6)/[facility] Hemoglobin 13.5 11.7 - 15.5 g/dL [facility] Hematocrit 40.0 35.7 - 45.8 % [facility] MCV 93.9 82.6 - 94.4 [facility] MCH 31.7 27.1 - 32.[address] [facility] MCHC 33.8 31.7 - 35.0 g/dL [facility] Platelets 219 145 - 357 x10(3)/[facility] RDWSD 47.0(H) 37.0 - 46.0 [facility] RDWCV 13.7 11.5 - 14.1 % [facility] MPV 11.0 7.6 - 12.9 [facility] nRBC % Auto 0.0 % [facility] nRBC Abs Auto 0.000 0.000 - 0.000 x10(3)/[facility] Blood 07/04/2023 3:47 AM EDT 07/04/2023 4:15 AM EDT Narrative Resulting Agency Comment Spec In Lab Terrence Keating MD HEMATOLOGY ORDERABLE S [facility] [place] [address] * Heparin (unfractionated) Level (07/04/2023 3:47 AM EDT) [facility] Heparin UFH Level 0.44 IU/mL [facility] Comment: Heparin (anti-Xa) levels should [...] Lab Ailyn Irvin MD HEMATOLOGY ORDERABLE S [facility] [place] [address] * (ABNORMAL) Basic Metabolic Panel (non-fasting) (07/04/2023 3:47 AM EDT) [facility] Glucose Lvl 104 65 - 199 mg/dL [facility] Comment:Diabetes: >=200 mg/d L plus symptoms BUN 16 8 - 18 mg/dL [facility] Creatinine 1.28(H) 0.70 - 1.20 mg/dL [facility] Sodium 139 135 - 145 mmol/L [facility] Potassium 3.8 3.5 - 5.0 mmol/L [facility] Comment: Please note: ??Patients with WBC >100,000 may have falsely elevated Potassium levels. ??For accurate Potassium quantification in these patients send serum separator tube (gold top) for subsequent determinations. ??Contact the Clinical Chemistry Laboratory if there are any questions. Chloride 102 98 - 107 mmol/L [facility] CO2 21(L) 22 - 31 mmol/L [facility] Anion Gap 16(H) 5 - 15 mmol/L [facility] Calcium 9.5 8.5 - 10.5 mg/dL [facility] Estimated GFR 50(L) >=60 mL/min/1. 73 m?? [facility] Comment: This patient's estimated GFR [...] MD CHEMISTRY ORDERABL ES Performing Organization Address [facility]/ZIP Co de Phone Number [facility] [place] [address] * (ABNORMAL) Phosphorus (07/04/2023 3:47 AM EDT) Phosphorus 4.9(H) 2.5 - 4.5 mg/dL [facility] Blood 07/04/2023 3:47 AM EDT 07/04/2023 4:15 AM EDT Narrative Resulting Agency Comment Spec In Lab Eufemia Copeland MD CHEMISTRY ORDERABL ES Performing Organization Address City/[facility]/ZIP Co de Phone Number [facility] [place] [address] * Magnesium (07/04/2023 3:47 AM EDT) Magnesium 1.05 0.69 - 1.07 mmol/L [facility] Blood 07/04/2023 3:47 AM EDT 07/04/2023 4:15 AM EDT Narrative Resulting Agency Comment Spec In Lab Eufemia Copeland MD CHEMISTRY ORDERABL ES [facility] [place] [address] * EKG 12 Lead (07/03/2023 9:36 PM EDT) Ventricular rate 61 BPM MUSE SYSTEM Atrial Rate 61 BPM MUSE SYSTEM P-R Interval 188 ms MUSE SYSTEM QRS Duration 88 ms MUSE SYSTEM Q-T Interval 512 ms MUSE SYSTEM QTC Calculated (Bezet) 515 ms MUSE SYSTEM Calculated P [place] 56 degrees MUSE SYSTEM Calculated R [place] 69 degrees MUSE SYSTEM Calculated T [place] 29 degrees MUSE SYSTEM INTERPRETATION Normal sinus [...] Beck MD ECG ORDERABLES MUSE SYSTEM * Magnesium (07/03/2023 6:00 PM EDT) Magnesium 0.89 0.69 - 1.07 mmol/L [facility] Blood 07/03/2023 6:00 PM EDT 07/03/2023 6:07 PM EDT Narrative Resulting Agency Comment Spec In Lab Lino Calles MD CHEMISTRY ORDERABLES [facility] [place] [address] * (ABNORMAL) Basic Metabolic Panel (non-fasting) (07/03/2023 6:00 PM EDT) Glucose Lvl 116 65 - 199 mg/dL [facility] Comment:Diabetes: >=200 mg/d L plus symptoms BUN 16 8 - 18 mg/dL [facility] Creatinine 1.37(H) 0.70 - 1.20 mg/dL [facility] Sodium 137 135 - 145 mmol/L [facility] Potassium 4.1 3.5 - 5.0 mmol/L [facility] Comment: Please note: ??Patients with WBC >100,000 may have falsely elevated Potassium levels. ??For accurate Potassium quantification in these patients send serum separator tube (gold top) for subsequent determinations. ??Contact the Clinical Chemistry Laboratory if there are any questions. Chloride 102 98 - 107 mmol/L [facility] CO2 21(L) 22 - 31 mmol/L [facility] Anion Gap 14 5 - 15 mmol/L [facility] Calcium 9.5 8.5 - 10.5 mg/dL [facility] Estimated GFR 46(L) >=60 mL/min/1. 73 m?? [facility] Comment: This patient's estimated GFR [...] In Lab Lino Calles MD CHEMISTRY ORDERABLES [facility] [place] [place] [address] * XR Chest One View (07/03/2023 3:18 PM EDT) WORKSTATION ID [id number] RAD Anatomical Region Laterality Modality Chest N/A Digital Radiogra phy Impressions 07/03/2023 3:27 PM EDT No pulmonary edema or pleural effusion Thank you for letting us participate in the care of this patient. ??If you are a health care provider and have any questions regarding this report, please contact the number below. ??For patients who have questions please contact the health director of medicare that requested your imaging first. ? Narrative [...] patients who have questions please contactthe health director of medicare that requested your imaging first. Lino Calles MD IMG DX ORDERABLES * Arterial Duplex Leg, Unil (07/03/2023 9:34 AM EDT) VB Text Report Department: Vascular Surgery Lab Patient: [id number] (LOIDA ROQUE) CPT: 51997 Referring Physician: LINO CALLES ?? Phone: Indications: [...] AM EDT Lino Calles MD VASCULAR ORDERABLES Performing Organization Address City/[facility]/ZIP Co de Phone Number [facility] * Differential, Automated (07/03/2023 3:07 AM EDT) Neutrophils % 67.2 % [facility] Neutr Abs (ANC) 5.51 1.70 - 6.10 x10(3)/[facility] Lymphocytes % 20.7 % [facility] Lymphocytes Abs 1.7 0.9 - 3.2 x10(3)/[facility] Monocytes % 7.7 % [facility] Monocyte Abs 0.6 0.3 - 0.9 x10(3)/[facility] Eosinophils % 3.7 % [facility] Eosinophils Abs 0.3 0.0 - 0.4 x10(3)/[facility] Basophils % 0.5 % [facility] Basophils Abs 0.0 0.0 - 0.1 x10(3)/[facility] Immature Gran % 0.20 % [facility] Comment: Immature granulocytes(IG's)percentage and absolute count will include metamyelocytes, myelocytes, and promyelocytes. Blood smears from CBCs yielding IG's will be scanned manually for concordance. If this scan disagrees with the automated IG or if promyelocytes are noted, a manual differential will be performed. Shonda Gran Abs 0.02 0.00 - 0.04 x10(3)/[facility] Blood 07/03/2023 3:07 AM EDT 07/03/2023 3:15 AM EDT Narrative Resulting Agency Comment Spec In Lab Terrence Keating MD HEMATOLOGY ORDERABLE S [facility] [place] [address] * (ABNORMAL) Hemogram (07/03/2023 3:07 AM EDT) WBC 8.2 4.0 - 9.5 x10(3)/[facility] RBC 3.97(L) 4.00 - 5.21 x10(6)/[facility] Hemoglobin 12.5 11.7 - 15.5 g/dL [facility] Hematocrit 38.5 35.7 - 45.8 % [facility] MCV 97.0(H) 82.6 - 94.[address] [facility] MCH 31.5 27.1 - 32.0 pg [facility] MCHC 32.5 31.7 - 35.0 g/dL [facility] Platelets 203 145 - 357 x10(3)/[facility] RDWSD 49.6(H) 37.0 - 46.0 [facility] RDWCV 13.7 11.5 - 14.1 % [facility] MPV 10.8 7.6 - 12.9 [facility] nRBC % Auto 0.0 % [facility] nRBC Abs Auto 0.000 0.000 - 0.000 x10(3)/[facility] Blood 07/03/2023 3:07 AM EDT 07/03/2023 3:15 AM EDT Narrative Resulting Agency Comment Spec In Lab Terrence Keating MD HEMATOLOGY ORDERABLE S [facility] [place] [address] * Heparin (unfractionated) Level (07/03/2023 3:07 AM EDT) Heparin UFH Level 0.49 IU/mL [facility] Comment: Heparin (anti-Xa) levels should [...] Lab Ailyn Irvin MD HEMATOLOGY ORDERABLE S [facility] [place] [address] * (ABNORMAL) Basic Metabolic Panel (non-fasting) (07/03/2023 3:07 AM EDT) Glucose Lvl 104 65 - 199 mg/dL [facility] Comment:Diabetes: >=200 mg/d L plus symptoms BUN 16 8 - 18 mg/dL [facility] Creatinine 1.20 0.70 - 1.20 mg/dL [facility] Sodium 138 135 - 145 mmol/L [facility] Potassium 4.2 3.5 - 5.0 mmol/L [facility] Comment: Please note: ??Patients with WBC >100,000 may have falsely elevated Potassium levels. ??For accurate Potassium quantification in these patients send serum separator tube (gold top) for subsequent determinations. ??Contact the Clinical Chemistry Laboratory if there are any questions. Chloride 107 98 - 107 mmol/L [facility] CO2 20(L) 22 - 31 mmol/L [facility] Anion Gap 11 5 - 15 mmol/L [facility] Calcium 8.8 8.5 - 10.5 mg/dL [facility] Estimated GFR 54(L) >=60 mL/min/1. 73 m?? [facility] Comment: This patient's estimated GFR [...] MD CHEMISTRY ORDERABL ES Performing Organization Address [facility] Co de Phone Number [facility] [place] [address] * Phosphorus (07/03/2023 3:07 AM EDT) Phosphorus 3.6 2.5 - 4.5 mg/dL [facility] Blood 07/03/2023 3:07 AM EDT 07/03/2023 3:15 AM EDT Narrative Resulting Agency Comment Spec In Lab Eufemia Copeland MD CHEMISTRY ORDERABL ES [facility] [place] [address] * Magnesium (07/03/2023 3:07 AM EDT) Magnesium 0.93 0.69 - 1.07 mmol/L [facility] Blood 07/03/2023 3:07 AM EDT 07/03/2023 3:15 AM EDT Narrative Resulting Agency Comment Spec In Lab Eufemia Copeland MD CHEMISTRY ORDERABL ES Performing Organization Address [facility]/ZIP Co de Phone Number [facility] [place] [address] * Heparin (unfractionated) Level (07/02/2023 8:58 PM EDT) Heparin UFH Level 0.60 IU/mL [facility] Comment: Heparin (anti-Xa) levels should [...] MD HEMATOLOGY ORDERABLE S Performing Organization Address [facility]/ZIP Co de Phone Number [facility] [place] [address] * VS Arteriogram Mesenteric Vascular Surgery (07/02/2023 [...] anesthetic: 10 cc 1% lidocaine Heparin: Yes 62640 ?? Units Protamine: No ??mg Antibiotics: Ancef [...] We exchanged the sheath for a 7 American guide cruise steerable sheath over a stiff wire. ??A Glidewire and Kumpe catheter were used to selectively cannulate the superior mesenteric artery. ??Direct angiography of the superior mesenteric artery was performed, confirming the results of the nonselective aortography performed. ??The lesion was predilated with a 4 mm x 40 mm [place] balloon, and then a 6 mm X [...] 3:58 AM EDT) Neutrophils % 61.3 % [facility] Neutr Abs (ANC) 4.67 1.70 - 6.10 x10(3)/[facility] Lymphocytes % 27.6 % [facility] Lymphocytes Abs 2.1 0.9 - 3.2 x10(3)/[facility] Monocytes % 6.4 % [facility] Monocyte Abs 0.5 0.3 - 0.9 x10(3)/[facility] Eosinophils % 3.9 % [facility] Eosinophils Abs 0.3 0.0 - 0.4 x10(3)/[facility] Basophils % 0.5 % [facility] Basophils Abs 0.0 0.0 - 0.1 x10(3)/[facility] Immature Gran % 0.30 % [facility] Comment: Immature granulocytes(IG's)percentage and absolute count will include metamyelocytes, myelocytes, and promyelocytes. Blood smears from CBCs yielding IG's will be scanned manually for concordance. If this scan disagrees with the automated IG or if promyelocytes are noted, a manual differential will be performed. Shonda Gran Abs 0.02 0.00 - 0.04 x10(3)/[facility] Blood 07/02/2023 3:58 AM EDT 07/02/2023 4:14 AM EDT Narrative Resulting Agency Comment Spec In Lab Terrence Keating MD HEMATOLOGY ORDERABLE S [facility] [place] [address] * (ABNORMAL) Hemogram (07/02/2023 3:58 AM EDT) WBC 7.6 4.0 - 9.5 x10(3)/[facility] RBC 4.12 4.00 - 5.21 x10(6)/[facility] Hemoglobin 12.9 11.7 - 15.5 g/dL [facility] Hematocrit 39.5 35.7 - 45.8 % [facility] MCV 95.9(H) 82.6 - 94.[address] [facility] MCH 31.3 27.1 - 32.[address] [facility] MCHC 32.7 31.7 - 35.0 g/dL [facility] Platelets 200 145 - 357 x10(3)/[facility] RDWSD 47.4(H) 37.0 - 46.0 [facility] RDWCV 13.3 11.5 - 14.1 % [facility] MPV 10.8 7.6 - 12.9 [facility] nRBC % Auto 0.0 % [facility] nRBC Abs Auto 0.000 0.000 - 0.000 x10(3)/[facility] Blood 07/02/2023 3:58 AM EDT 07/02/2023 4:14 AM EDT Narrative Resulting Agency Comment Spec In Lab Terrence Keating MD HEMATOLOGY ORDERABLE S [facility] [place] [address] * Heparin (unfractionated) Level (07/02/2023 3:58 AM EDT) Pathologist [facility] Heparin UFH Level 0.57 IU/mL [facility] Comment: Heparin (anti-Xa) levels should [...] Lab Ailyn Irvin MD HEMATOLOGY ORDERABLE S [facility] [place] [address] * (ABNORMAL) Basic Metabolic Panel (non-fasting) (07/02/2023 3:58 AM EDT) Glucose Lvl 96 65 - 199 mg/dL [facility] Comment:Diabetes: >=200 mg/d L plus symptoms BUN 15 8 - 18 mg/dL [facility] Creatinine 1.21(H) 0.70 - 1.20 mg/dL [facility] Sodium 133(L) 135 - 145 mmol/L [facility] Potassium 4.1 3.5 - 5.0 mmol/L [facility] Comment: Please note: ??Patients with WBC >100,000 may have falsely elevated Potassium levels. ??For accurate Potassium quantification in these patients send serum separator tube (gold top) for subsequent determinations. ??Contact the Clinical Chemistry Laboratory if there are any questions. Chloride 104 98 - 107 mmol/L [facility] CO2 21(L) 22 - 31 mmol/L [facility] Anion Gap 8 5 - 15 mmol/L [facility] Calcium 8.8 8.5 - 10.5 mg/dL [facility] Estimated GFR 53(L) >=60 mL/min/1. 73 m?? [facility] Comment: This patient's estimated GFR [...] MD CHEMISTRY ORDERABL ES Performing Organization Address [facility] Co de Phone Number [facility] [place] [address] * Phosphorus (07/02/2023 3:58 AM EDT) Phosphorus 3.8 2.5 - 4.5 mg/dL [facility] Blood 07/02/2023 3:58 AM EDT 07/02/2023 4:14 AM EDT Narrative Resulting Agency Comment Spec In Lab Eufemia Copeland MD CHEMISTRY ORDERABL ES Performing Organization Address City/[facility] Co de Phone Number [facility] [place] [address] * Magnesium (07/02/2023 3:58 AM EDT) Magnesium 0.95 0.69 - 1.07 mmol/L [facility] Blood 07/02/2023 3:58 AM EDT 07/02/2023 4:14 AM EDT Narrative Resulting Agency Comment Spec In Lab Eufemia Copeland MD CHEMISTRY ORDERABL ES [facility] [place] [address] * EKG 12 Lead (07/01/2023 12:08 PM EDT) Ventricular rate 48 BPM MUSE SYSTEM Atrial Rate 48 BPM MUSE SYSTEM P-R Interval 192 ms MUSE SYSTEM QRS Duration 92 ms MUSE SYSTEM Q-T Interval 474 ms MUSE SYSTEM QTC Calculated (Bezet) 423 ms MUSE SYSTEM Calculated P [place] 32 degrees MUSE SYSTEM Calculated R [place] 45 degrees MUSE SYSTEM Calculated T [place] 0 degrees MUSE SYSTEM INTERPRETATION Sinus bradycardia [...] Differential, Automated (07/01/2023 2:56 AM EDT) Pathologist [facility] Neutrophils % 50.5 % [facility] Neutr Abs (ANC) 3.47 1.70 - 6.10 x10(3)/[facility] Lymphocytes % 36.5 % [facility] Lymphocytes Abs 2.5 0.9 - 3.2 x10(3)/[facility] Monocytes % 7.7 % [facility] Monocyte Abs 0.5 0.3 - 0.9 x10(3)/[facility] Eosinophils % 4.5 % [facility] Eosinophils Abs 0.3 0.0 - 0.4 x10(3)/[facility] Basophils % 0.7 % [facility] Basophils Abs 0.0 0.0 - 0.1 x10(3)/[facility] Immature Gran % 0.10 % [facility] Comment: Immature granulocytes(IG's)percentage and absolute count will include metamyelocytes, myelocytes, and promyelocytes. Blood smears from CBCs yielding IG's will be scanned manually for concordance. If this scan disagrees with the automated IG or if promyelocytes are noted, a manual differential will be performed. Shonda Gran Abs 0.01 0.00 - 0.04 x10(3)/[facility] Blood 07/01/2023 2:56 AM EDT 07/01/2023 3:22 AM EDT Narrative Resulting Agency Comment Spec In Lab Terrence Keating MD HEMATOLOGY ORDERABLE S [facility] [place] [address] * (ABNORMAL) Hemogram (07/01/2023 2:56 AM EDT) WBC 6.9 4.0 - 9.5 x10(3)/[facility] RBC 4.04 4.00 - 5.21 x10(6)/[facility] Hemoglobin 12.8 11.7 - 15.5 g/dL [facility] Hematocrit 39.0 35.7 - 45.8 % [facility] MCV 96.5(H) 82.6 - 94.[address] [facility] MCH 31.7 27.1 - 32.[address] [facility] MCHC 32.8 31.7 - 35.0 g/dL [facility] Platelets 224 145 - 357 x10(3)/[facility] RDWSD 47.8(H) 37.0 - 46.0 [facility] RDWCV 13.3 11.5 - 14.1 % [facility] MPV 11.1 7.6 - 12.9 [facility] nRBC % Auto 0.0 % [facility] nRBC Abs Auto 0.000 0.000 - 0.000 x10(3)/mcL [facility] Blood 07/01/2023 2:56 AM EDT 07/01/2023 3:22 AM EDT Narrative Resulting Agency Comment Spec In Lab Terrence Keating MD HEMATOLOGY ORDERABLE S Performing Organization Address City/[facility]/ZIP Co de Phone Number [facility] [place] [address] * Heparin (unfractionated) Level (07/01/2023 2:56 AM EDT) Heparin UFH Level 0.56 IU/mL [facility] Comment: Heparin (anti-Xa) levels should [...] de Phone Number [facility] [place] [address] * (ABNORMAL) Basic Metabolic Panel (non-fasting) (07/01/2023 2:56 AM EDT) Glucose Lvl 95 65 - 199 mg/dL [facility] Comment:Diabetes: >=200 mg/d L plus symptoms BUN 16 8 - 18 mg/dL [facility] Creatinine 1.21(H) 0.70 - 1.20 mg/dL [facility] Sodium 137 135 - 145 mmol/L [facility] Potassium 4.1 3.5 - 5.0 mmol/L [facility] Comment: Please note: ??Patients with WBC >100,000 may have falsely elevated Potassium levels. ??For accurate Potassium quantification in these patients send serum separator tube (gold top) for subsequent determinations. ??Contact the Clinical Chemistry Laboratory if there are any questions. Chloride 105 98 - 107 mmol/L [facility] CO2 22 22 - 31 mmol/L [facility] Anion Gap 10 5 - 15 mmol/L [facility] Calcium 9.0 8.5 - 10.5 mg/dL [facility] Estimated GFR 53(L) >=60 mL/min/1. 73 m?? [facility] Comment: This patient's estimated GFR [...] Lab Eufemia Copeland MD CHEMISTRY ORDERABL ES [facility] [place] [address] * Phosphorus (07/01/2023 2:56 AM EDT) Phosphorus 4.1 2.5 - 4.5 mg/dL [facility] Blood 07/01/2023 2:56 AM EDT 07/01/2023 3:22 AM EDT Narrative Resulting Agency Comment Spec In Lab Eufemia Copeland MD CHEMISTRY ORDERABL ES Performing Organization Address [facility]/ZIP Co de Phone Number [facility] [place] [address] * Magnesium (07/01/2023 2:56 AM EDT) Magnesium 0.95 0.69 - 1.07 mmol/L [facility] Blood 07/01/2023 2:56 AM EDT 07/01/2023 3:22 AM EDT Narrative Resulting Agency Comment Spec In Lab Eufemia Copeland MD CHEMISTRY ORDERABL ES Performing Organization Address [facility] Co de Phone Number [facility] [place] [address] * Heparin (unfractionated) Level (06/30/2023 9:24 AM EDT) Heparin UFH Level 0.62 IU/mL [facility] Comment: Heparin (anti-Xa) levels should [...] Lab Ailyn Irvin MD HEMATOLOGY ORDERABLE S [facility] [place] [address] * Differential, Automated (06/30/2023 3:14 AM EDT) Neutrophils % 49.5 % [facility] Neutr Abs (ANC) 3.96 1.70 - 6.10 x10(3)/[facility] Lymphocytes % 36.6 % [facility] Lymphocytes Abs 2.9 0.9 - 3.2 x10(3)/[facility] Monocytes % 8.6 % [facility] Monocyte Abs 0.7 0.3 - 0.9 x10(3)/[facility] Eosinophils % 4.1 % [facility] Eosinophils Abs 0.3 0.0 - 0.4 x10(3)/[facility] Basophils % 0.8 % [facility] Basophils Abs 0.1 0.0 - 0.1 x10(3)/[facility] Immature Gran % 0.40 % [facility] Comment: Immature granulocytes(IG's)percentage and absolute count will include metamyelocytes, myelocytes, and promyelocytes. Blood smears from CBCs yielding IG's will be scanned manually for concordance. If this scan disagrees with the automated IG or if promyelocytes are noted, a manual differential will be performed. Shonda Gran Abs 0.03 0.00 - 0.04 x10(3)/[facility] Blood 06/30/2023 3:14 AM EDT 06/30/2023 3:23 AM EDT Narrative Resulting Agency Comment Spec In Lab Terrence Keating MD HEMATOLOGY ORDERABLE S [facility] [place] [address] * Hemogram (06/30/2023 3:14 AM EDT) Pathologist [facility] WBC 8.0 4.0 - 9.5 x10(3)/[facility] RBC 4.22 4.00 - 5.21 x10(6)/[facility] Hemoglobin 13.1 11.7 - 15.5 g/dL [facility] Hematocrit 39.5 35.7 - 45.8 % [facility] MCV 93.6 82.6 - 94.[address] [facility] MCH 31.0 27.1 - 32.[address] [facility] MCHC 33.2 31.7 - 35.0 g/dL [facility] Platelets 235 145 - 357 x10(3)/[facility] RDWSD 45.3 37.0 - 46.[address] [facility] RDWCV 13.3 11.5 - 14.1 % [facility] MPV 11.0 7.6 - 12.9 [facility] nRBC % Auto 0.0 % [facility] nRBC Abs Auto 0.000 0.000 - 0.000 x10(3)/[facility] Blood 06/30/2023 3:14 AM EDT 06/30/2023 3:23 AM EDT Narrative Resulting Agency Comment Spec In Lab Terrence Keating MD HEMATOLOGY ORDERABLE S Performing Organization Address City/State/[facility] Co de Phone Number [facility] [place] [address] * Heparin (unfractionated) Level (06/30/2023 3:14 AM EDT) Pathologist [facility] Heparin UFH Level 0.70 IU/mL [facility] Comment: Heparin (anti-Xa) levels should [...] Lab Terrence Keating MD HEMATOLOGY ORDERABLE S [facility] [place] [address] * (ABNORMAL) Basic Metabolic Panel (non-fasting) (06/30/2023 3:14 AM EDT) Glucose Lvl 103 65 - 199 mg/dL [facility] Comment:Diabetes: >=200 mg/d L plus symptoms BUN 18 8 - 18 mg/dL [facility] Creatinine 1.22(H) 0.70 - 1.20 mg/dL [facility] Sodium 137 135 - 145 mmol/L [facility] Potassium 3.8 3.5 - 5.0 mmol/L [facility] Comment: Please note: ??Patients with WBC >100,000 may have falsely elevated Potassium levels. ??For accurate Potassium quantification in these patients send serum separator tube (gold top) for subsequent determinations. ??Contact the Clinical Chemistry Laboratory if there are any questions. Chloride 104 98 - 107 mmol/L [facility] CO2 23 22 - 31 mmol/L [facility] Anion Gap 10 5 - 15 mmol/L [facility] Calcium 9.1 8.5 - 10.5 mg/dL [facility] Estimated GFR 53(L) >=60 mL/min/1. 73 m?? [facility] Comment: This patient's estimated GFR [...] MD CHEMISTRY ORDERABL ES Performing Organization Address [facility] Co de Phone Number [facility] [place] [address] * Phosphorus (06/30/2023 3:14 AM EDT) Phosphorus 4.4 2.5 - 4.5 mg/dL [facility] Blood 06/30/2023 3:14 AM EDT 06/30/2023 3:23 AM EDT Narrative Resulting Agency Comment Spec In Lab Eufemia Copeland MD CHEMISTRY ORDERABL ES Performing Organization Address [facility] de Phone Number [facility] [place] [address] * Magnesium (06/30/2023 3:14 AM EDT) Magnesium 0.94 0.69 - 1.07 mmol/L [facility] Blood 06/30/2023 3:14 AM EDT 06/30/2023 3:23 AM EDT Narrative Resulting Agency Comment Spec In Lab Eufemia Copeland MD CHEMISTRY ORDERABL ES Performing Organization Address [facility] Co de Phone Number [facility] [place] [address] * Heparin (unfractionated) Level (06/29/2023 8:47 PM EDT) [facility] Heparin UFH Level 0.75 IU/mL [facility] Comment: Heparin (anti-Xa) levels should [...] Lab Terrence Keating MD HEMATOLOGY ORDERABLE S [facility] [place] [address] * EKG 12 Lead (06/29/2023 12:55 PM EDT) [facility] Ventricular rate 53 BPM MUSE SYSTEM Atrial Rate 53 BPM MUSE SYSTEM P-R Interval 196 ms MUSE SYSTEM QRS Duration 90 ms MUSE SYSTEM Q-T Interval 564 ms MUSE SYSTEM QTC Calculated (Bezet) 529 ms MUSE SYSTEM Calculated P [place] 30 degrees MUSE SYSTEM Calculated R [place] 53 degrees MUSE SYSTEM Calculated T [place] 5 degrees MUSE SYSTEM INTERPRETATION Sinus bradycardia Marked ST abnormality, possible inferior subendocardial injury Prolonged QT Abnormal ECG When compared with ECG of 26-JUN-2023 06:04, Nonspecific T wave abnormality no longer evident in Anterolateral leads QT has lengthened Confirmed by MD Angelo Danette ([id number]) on 06/29/2023 8:34:43 PM MUSE SYSTEM 06/29/2023 12:5 5 PM EDT 06/29/2023 8:34 PM EDT Terrence Keating MD ECG ORDERABLES MUSE SYSTEM * (ABNORMAL) Heparin (unfractionated) Level (06/29/2023 11:34 AM EDT) [facility] Heparin UFH Level 1.41(Crit ical) IU/mL [facility] Comment: Critical Result called by ?? OPAL CRITICAL Results read back by: ? Chilo Nikcerson at 2023-06-29 12:14:07 Heparin (anti-Xa) levels should [...] de Phone Number [facility] [place] [address] * Differential, Automated (06/29/2023 2:39 AM EDT) [facility] Neutrophils % 53.8 % [facility] Neutr Abs (ANC) 4.46 1.70 - 6.10 x10(3)/[facility] Lymphocytes % 33.5 % [facility] Lymphocytes Abs 2.8 0.9 - 3.2 x10(3)/[facility] Monocytes % 8.3 % [facility] Monocyte Abs 0.7 0.3 - 0.9 x10(3)/[facility] Eosinophils % 3.5 % [facility] Eosinophils Abs 0.3 0.0 - 0.4 x10(3)/[facility] Basophils % 0.5 % [facility] Basophils Abs 0.0 0.0 - 0.1 x10(3)/[facility] Immature Gran % 0.40 % [facility] Comment: Immature granulocytes(IG's)percentage and absolute count will include metamyelocytes, myelocytes, and promyelocytes. Blood smears from CBCs yielding IG's will be scanned manually for concordance. If this scan disagrees with the automated IG or if promyelocytes are noted, a manual differential will be performed. Shonda Gran Abs 0.03 0.00 - 0.04 x10(3)/[facility] Blood 06/29/2023 2:39 AM EDT 06/29/2023 3:33 AM EDT Narrative Resulting Agency Comment Spec In Lab Terrence Keating MD HEMATOLOGY ORDERABLE S [facility] [place] [address] * Hemogram (06/29/2023 2:39 AM EDT) WBC 8.3 4.0 - 9.5 x10(3)/[facility] LAB[facility] RBC 4.19 4.00 - 5.21 x10(6)/[facility] Hemoglobin 13.2 11.7 - 15.5 g/dL [facility] Hematocrit 38.9 35.7 - 45.8 % [facility] MCV 92.8 82.6 - 94.4 fL [facility] MCH 31.5 27.1 - 32.0 pg [facility] MCHC 33.9 31.7 - 35.0 g/dL [facility] Platelets 237 145 - 357 x10(3)/[facility] RDWSD 45.3 37.0 - 46.[address] [facility] RDWCV 13.3 11.5 - 14.1 % [facility] MPV 11.4 7.6 - 12.9 [facility] LAB[facility]ATORY nRBC % Auto 0.0 % [facility] nRBC Abs Auto 0.000 0.000 - 0.000 x10(3)/mcL [facility] Blood 06/29/2023 2:39 AM EDT 06/29/2023 3:33 AM EDT Narrative Resulting Agency Comment Spec In Lab Terrence Keating MD HEMATOLOGY ORDERABLE S [facility] [place] [address] * (ABNORMAL) Heparin (unfractionated) Level (06/29/2023 2:39 AM EDT) Heparin UFH Level 1.77(Crit ical) IU/mL [facility] Comment: Specimen drawn more than [...] Lab Ailyn Irvin MD HEMATOLOGY ORDERABLE S [facility] [place] [address] * (ABNORMAL) Basic Metabolic Panel (non-fasting) (06/29/2023 2:39 AM EDT) Glucose Lvl 100 65 - 199 mg/dL [facility] Comment:Diabetes: >=200 mg/d L plus symptoms BUN 21(H) 8 - 18 mg/dL [facility] Creatinine 1.17 0.70 - 1.20 mg/dL [facility] Sodium 138 135 - 145 mmol/L [facility] Potassium 3.9 3.5 - 5.0 mmol/L [facility] Comment: Please note: ??Patients with WBC >100,000 may have falsely elevated Potassium levels. ??For accurate Potassium quantification in these patients send serum separator tube (gold top) for subsequent determinations. ??Contact the Clinical Chemistry Laboratory if there are any questions. Chloride 105 98 - 107 mmol/L [facility] CO2 22 22 - 31 mmol/L [facility] Anion Gap 11 5 - 15 mmol/L [facility] Calcium 9.1 8.5 - 10.5 mg/dL [facility] Estimated GFR 55(L) >=60 mL/min/1. 73 m?? [facility] Comment: This patient's estimated GFR [...] MD CHEMISTRY ORDERABL ES Performing Organization Address [facility] Co de Phone Number [facility] [place] [address] * Phosphorus (06/29/2023 2:39 AM EDT) Phosphorus 4.0 2.5 - 4.5 mg/dL [facility] Blood 06/29/2023 2:39 AM EDT 06/29/2023 3:33 AM EDT Narrative Resulting Agency Comment Spec In Lab Eufemia Copeland MD CHEMISTRY ORDERABL ES Performing Organization Address [facility] de Phone Number [facility] [place] [address] * Magnesium (06/29/2023 2:39 AM EDT) Magnesium 0.92 0.69 - 1.07 mmol/L [facility] Blood 06/29/2023 2:39 AM EDT 06/29/2023 3:33 AM EDT Narrative Resulting Agency Comment Spec In Lab Eufemia Copeland MD CHEMISTRY ORDERABL ES Performing Organization Address [facility] de Phone Number [facility] [place] [address] * US Abdomen Limited (06/28/2023 12:22 PM EDT) WORKSTATION ID [id number] [facility] Anatomical Region Laterality Modality Abdomen Ultrasound 06/28/2023 [...] who have questions, please contact the health director of medicare that requested your imaging first. ?Sigrid Owens, [facility] Plaster Die Maker Electronically Signed Final Report ?? 06/28/2023 02:08 pm Narrative 06/28/2023 2:08 PM EDT Abdominal ? (Signed Final 06/28/2023 02:08 pm) PATIENT INFO: ID #: ? [id number] ?: ??[birth year] (53 yrs)(F) Name: ? LOIDA ?Visit Date: 06/28/2023 12:20 pm ? ROHAN PERFORMED BY: Attending: ?Sigrid Owens MD Resident: ? Karo JOHN, Rafaela Performed By: ? Rick STANFORD, ??Deena Referred By: ?AILYN IRVIN Location: ? [employer] SERVICE(S) PROVIDED: UABDLIM - Abdominal Limited Survey Single ? 80065 Organ or Quadrant - [id number] INDICATIONS: RUQ pain, R/o Gall bladder colic, [...] 06/28/2023 02:08 pm) PATIENT INFO: ID #: [id number] : [birth year] (53 yrs)(F) Name: LOIDA Visit Date: 06/28/2023 12:20 pm ROHAN PERFORMED BY: Attending: Sigrid Owens MD Resident: Rafaela Huddleston MD Performed By: Deena Cabrera RDMS Referred By: AILYN IRVIN Location: [employer] SERVICE(S) PROVIDED: UABDLIM - Abdominal Limited Survey Single 16074 Organ or Quadrant - [id number] INDICATIONS: RUQ pain, R/o Gall bladder colic, [...] who have questions, please contact the health director of medicare that requested your imaging first. Sigrid Owens, E [employer]aster [employer] Maker Electronically Signed Final Report 06/28/2023 02:08 pm Ailyn Irvin MD IMG US GEN ORDERABLE S * Duplex Study Visceral Arteries, Comp (06/28/2023 10:19 AM EDT) VB Text Report Department: Vascular Surgery Lab Patient: [id number] (LOIDA ROQUE) CPT: [id number] Referring Physician: HEIDY SULLIVAN ?? Indications: abdominal pain, ? patency/stenosi s Findings: Unilateral ? Waveform ? PSV cm/s ??EDV cm/s ??Patent ?? Dary Visceral Aorta ? 80 ?16 ? Celiac Artery, Proximal ??Yadkin-Biphasic ? 119 ?26 ? Celiac Artery, Mid ? [place]kin-Biphasic ? 115 ?21 ? Celiac Artery, Distal ? No Vis ?? Sup Mes Artery Proximal ??Biphasic ?427 ?91 ? Sup Mes Artery Middle ?Yadkin-Biphasic ? 100 ?17 ? Sup Mes Artery Distal ?Yadkin-Biphasic ?64 ?15 ? Hepatic Artery ?No Vis [...] 1:52 AM EDT) Neutrophils % 55.3 % [facility] Neutr Abs (ANC) 4.46 1.70 - 6.10 x10(3)/[facility] Lymphocytes % 30.6 % [facility] Lymphocytes Abs 2.5 0.9 - 3.2 x10(3)/[facility] Monocytes % 8.8 % [facility] Monocyte Abs 0.7 0.3 - 0.9 x10(3)/[facility] Eosinophils % 4.6 % [facility] Eosinophils Abs 0.4 0.0 - 0.4 x10(3)/[facility] Basophils % 0.5 % [facility] Basophils Abs 0.0 0.0 - 0.1 x10(3)/[facility] Immature Gran % 0.20 % [facility] Comment: Immature granulocytes(IG's)percentage and absolute count will include metamyelocytes, myelocytes, and promyelocytes. Blood smears from CBCs yielding IG's will be scanned manually for concordance. If this scan disagrees with the automated IG or if promyelocytes are noted, a manual differential will be performed. Shonda Gran Abs 0.02 0.00 - 0.04 x10(3)/[facility] Blood 06/28/2023 1:52 AM EDT 06/28/2023 2:05 AM EDT Narrative Resulting Agency Comment Spec In Lab Terrence Keating MD HEMATOLOGY ORDERABLE S [facility] [place] [address] * Hemogram (06/28/2023 1:52 AM EDT) WBC 8.1 4.0 - 9.5 x10(3)/[facility] RBC 4.30 4.00 - 5.21 x10(6)/[facility] Hemoglobin 13.4 11.7 - 15.5 g/dL [facility] Hematocrit 40.6 35.7 - 45.8 % [facility] MCV 94.4 82.6 - 94.4 [facility] MCH 31.2 27.1 - 32.[address] [facility] MCHC 33.0 31.7 - 35.0 g/dL [facility] Platelets 238 145 - 357 x10(3)/[facility] RDWSD 45.7 37.0 - 46.0 [facility] RDWCV 13.2 11.5 - 14.1 % [facility] MPV 10.8 7.6 - 12.9 [facility] nRBC % Auto 0.0 % [facility] nRBC Abs Auto 0.000 0.000 - 0.000 x10(3)/[facility] Blood 06/28/2023 1:52 AM EDT 06/28/2023 2:05 AM EDT Narrative Resulting Agency Comment Spec In Lab Terrence Keating MD HEMATOLOGY ORDERABLE S [facility] [place] [address] * (ABNORMAL) Basic Metabolic Panel (non-fasting) (06/28/2023 1:52 AM EDT) Glucose Lvl 101 65 - 199 mg/dL [facility] Comment:Diabetes: >=200 mg/d L plus symptoms BUN 24(H) 8 - 18 mg/dL [facility] Creatinine 1.21(H) 0.70 - 1.20 mg/dL [facility] Sodium 138 135 - 145 mmol/L [facility] Potassium 4.0 3.5 - 5.0 mmol/L [facility] Comment: Please note: ??Patients with WBC >100,000 may have falsely elevated Potassium levels. ??For accurate Potassium quantification in these patients send serum separator tube (gold top) for subsequent determinations. ??Contact the Clinical Chemistry Laboratory if there are any questions. Chloride 105 98 - 107 mmol/L [facility] CO2 21(L) 22 - 31 mmol/L [facility] Anion Gap 12 5 - 15 mmol/L [facility] Calcium 9.0 8.5 - 10.5 mg/dL [facility] Estimated GFR 53(L) >=60 mL/min/1. 73 m?? [facility] Comment: This patient's estimated GFR [...] ORDERABL ES Performing Organization Address City/[facility] Co de Phone Number [facility] [place] [address] * Phosphorus (06/28/2023 1:52 AM EDT) Phosphorus 4.5 2.5 - 4.5 mg/dL [facility] Blood 06/28/2023 1:52 AM EDT 06/28/2023 2:05 AM EDT Narrative Resulting Agency Comment Spec In Lab Eufemia Copeland MD CHEMISTRY ORDERABL ES [facility] [place] [address] * Magnesium (06/28/2023 1:52 AM EDT) Magnesium 0.93 0.69 - 1.07 mmol/L [facility] Blood 06/28/2023 1:52 AM EDT 06/28/2023 2:05 AM EDT Narrative Resulting Agency Comment Spec In Lab Eufemia Copeland MD CHEMISTRY ORDERABL ES Performing Organization Address [facility]/ZIP Co de Phone Number [facility] [place] [address] * (ABNORMAL) Basic Metabolic Panel (non-fasting) (06/27/2023 8:06 PM EDT) Pathologist [facility] Glucose Lvl 94 65 - 199 mg/dL [facility] Comment:Diabetes: >=200 mg/d L plus symptoms BUN 24(H) 8 - 18 mg/dL [facility] Creatinine 1.28(H) 0.70 - 1.20 mg/dL [facility] Sodium 141 135 - 145 mmol/L [facility] Potassium 4.3 3.5 - 5.0 mmol/L [facility] Comment: Please note: ??Patients with WBC >100,000 may have falsely elevated Potassium levels. ??For accurate Potassium quantification in these patients send serum separator tube (gold top) for subsequent determinations. ??Contact the Clinical Chemistry Laboratory if there are any questions. Chloride 106 98 - 107 mmol/L [facility] CO2 24 22 - 31 mmol/L [facility] Anion Gap 11 5 - 15 mmol/L [facility] Calcium 9.3 8.5 - 10.5 mg/dL [facility] Estimated GFR 50(L) >=60 mL/min/1. 73 m?? [facility] Comment: This patient's estimated GFR [...] Irvin MD CHEMISTRY ORDERABLES Performing Organization Address [facility]/ZIP Co de Phone Number [facility] [place] [address] * (ABNORMAL) Hepatic Function Panel (06/27/2023 4:34 AM EDT) Total Protein 6.4 6.1 - 8.0 g/dL [facility] Albumin 3.8 3.2 - 5.2 g/dL [facility] AST 21 0 - 30 unit/L [facility] ALT 22 0 - 30 unit/L [facility] Alk Phos 56 35 - 105 unit/L [facility] Total Bilirubin <0.2(L) 0.2 - 1.3 mg/dL [facility] Bili, Direct <0.1 0.0 - 0.3 mg/dL [facility] Blood Venous Draw / Unknown 06/27/2023 4:34 AM EDT 06/27/2023 4:53 AM EDT Narrative Resulting Agency Comment Spec In Lab Ailyn Irvin MD CHEMISTRY ORDERABLES Performing Organization Address City/[facility]/ZIP Co de Phone Number [facility] [place] [address] * Differential, Automated (06/27/2023 4:34 AM EDT) Neutrophils % 52.7 % [facility] Neutr Abs (ANC) 4.01 1.70 - 6.10 x10(3)/[facility] Lymphocytes % 33.8 % [facility] Lymphocytes Abs 2.6 0.9 - 3.2 x10(3)/[facility] Monocytes % 8.8 % [facility] Monocyte Abs 0.7 0.3 - 0.9 x10(3)/[facility] Eosinophils % 3.8 % [facility] Eosinophils Abs 0.3 0.0 - 0.4 x10(3)/[facility] Basophils % 0.5 % [facility] Basophils Abs 0.0 0.0 - 0.1 x10(3)/[facility] Immature Gran % 0.40 % [facility] Comment: Immature granulocytes(IG's)percentage and absolute count will include metamyelocytes, myelocytes, and promyelocytes. Blood smears from CBCs yielding IG's will be scanned manually for concordance. If this scan disagrees with the automated IG or if promyelocytes are noted, a manual differential will be performed. Shonda Gran Abs 0.03 0.00 - 0.04 x10(3)/[facility] Blood 06/27/2023 4:34 AM EDT 06/27/2023 4:51 AM EDT Narrative Resulting Agency Comment Spec In Lab Terrence Keating MD HEMATOLOGY ORDERABLE S [facility] [place] [address] * Hemogram (06/27/2023 4:34 AM EDT) WBC 7.6 4.0 - 9.5 x10(3)/[facility] RBC 4.15 4.00 - 5.21 x10(6)/[facility] Hemoglobin 12.9 11.7 - 15.5 g/dL [facility] Hematocrit 39.0 35.7 - 45.8 % [facility] MCV 94.0 82.6 - 94.4 [facility] MCH 31.1 27.1 - 32.[address] [facility] MCHC 33.1 31.7 - 35.0 g/dL [facility] Platelets 245 145 - 357 x10(3)/[facility] RDWSD 45.2 37.0 - 46.0 [facility] RDWCV 13.2 11.5 - 14.1 % [facility] MPV 11.2 7.6 - 12.9 [facility] LABORATORY nRBC % Auto 0.0 % [facility] nRBC Abs Auto 0.000 0.000 - 0.000 x10(3)/[facility] LABORATORY Blood 06/27/2023 4:34 AM EDT 06/27/2023 4:51 AM EDT Narrative Resulting Agency Comment Spec In Lab Terrence Keating MD HEMATOLOGY ORDERABLE S [facility] [place] [address] * (ABNORMAL) Basic Metabolic Panel (non-fasting) (06/27/2023 4:34 AM EDT) Glucose Lvl 99 65 - 199 mg/dL [facility] Comment:Diabetes: >=200 mg/d L plus symptoms BUN 26(H) 8 - 18 mg/dL [facility] Creatinine 1.22(H) 0.70 - 1.20 mg/dL [facility] Sodium 138 135 - 145 mmol/L [facility] Potassium 3.9 3.5 - 5.0 mmol/L [facility] Comment: Please note: ??Patients with WBC >100,000 may have falsely elevated Potassium levels. ??For accurate Potassium quantification in these patients send serum separator tube (gold top) for subsequent determinations. ??Contact the Clinical Chemistry Laboratory if there are any questions. Chloride 105 98 - 107 mmol/L [facility] CO2 22 22 - 31 mmol/L [facility] Anion Gap 11 5 - 15 mmol/L [facility] Calcium 9.1 8.5 - 10.5 mg/dL [facility] Estimated GFR 53(L) >=60 mL/min/1. 73 m?? [facility] Comment: This patient's estimated GFR [...] MD CHEMISTRY ORDERABL ES Performing Organization Address [facility]/ZIP Co de Phone Number [facility] [place] [address] * (ABNORMAL) Phosphorus (06/27/2023 4:34 AM EDT) Phosphorus 4.7(H) 2.5 - 4.5 mg/dL [facility] Blood 06/27/2023 4:34 AM EDT 06/27/2023 4:51 AM EDT Narrative Resulting Agency Comment Spec In Lab Eufemia Copeland MD CHEMISTRY ORDERABL ES Performing Organization Address City/[facility]/ZIP Co de Phone Number [facility] [place] [address] * Magnesium (06/27/2023 4:34 AM EDT) Magnesium 0.90 0.69 - 1.07 mmol/L [facility] Blood 06/27/2023 4:34 AM EDT 06/27/2023 4:51 AM EDT Narrative Resulting Agency Comment Spec In Lab Eufemia Copeland MD CHEMISTRY ORDERABL ES [facility] [place] [address] * (ABNORMAL) Basic Metabolic Panel (non-fasting) (06/26/2023 4:58 PM EDT) Glucose Lvl 106 65 - 199 mg/dL [facility] Comment:Diabetes: >=200 mg/d L plus symptoms BUN 24(H) 8 - 18 mg/dL [facility] Creatinine 1.23(H) 0.70 - 1.20 mg/dL [facility] Sodium 138 135 - 145 mmol/L [facility] Potassium 4.2 3.5 - 5.0 mmol/L [facility] Comment: Please note: ??Patients with WBC >100,000 may have falsely elevated Potassium levels. ??For accurate Potassium quantification in these patients send serum separator tube (gold top) for subsequent determinations. ??Contact the Clinical Chemistry Laboratory if there are any questions. Chloride 104 98 - 107 mmol/L [facility] CO2 21(L) 22 - 31 mmol/L [facility] Anion Gap 13 5 - 15 mmol/L [facility] Calcium 9.1 8.5 - 10.5 mg/dL [facility] Estimated GFR 52(L) >=60 mL/min/1. 73 m?? [facility] Comment: This patient's estimated GFR [...] Irvin MD CHEMISTRY ORDERABLES Performing Organization Address City/[facility]/ZIP Co de Phone Number [facility] [place] [address] * Urinalysis Microscopic Exam (06/26/2023 11:09 AM EDT) RBC UA 0 0 - 4 /HPF [facility] WBC UA 3 0 - 5 /HPF [facility] Squam Epith UA 1 <=4 /HPF [facility] Hyaline Cast UA 1 0 - 2 /LPF [facility] Clean Catch Urine 06/26/2023 11:09 AM EDT 06/26/2023 5:45 PM EDT Narrative Resulting Agency Comment Spec In Lab Ailyn Irvin MD URINE ORDERABLES Performing Organization Address City/[facility]/ZIP Co de Phone Number [facility] [place] [address] * (ABNORMAL) Urinalysis with reflex Culture (06/26/2023 11:09 AM EDT) Glucose UA Negative Negative mg/dL [facility] Protein UA Negative Negative mg/dL [facility] Bilirubin UA Negative Negative mg/dL [facility] Comment: Clinical correlation required for positive Urine Bilirubin results as false positive may occur with some drugs and drug related products. If a false positive is suspected a serum total bilirubin should be considered if clinically indicated. Urobilinogen UA Normal Normal mg/dL [facility] pH UA 6.0 5.0 - 8.0 [facility] Blood UA Negative Negative mg/dL [facility] Ketones UA Negative Negative mg/dL [facility] Nitrite UA Negative Negative [facility] Leukocytes UA Trace(A) Negative mcL [facility] Appearance UA Clear Clear [facility] Spec [place] UA 1.013 1.005 - 1.030 [facility] Color UA Yellow Yellow [facility] Culture Reflexed No [facility] Clean Catch Urine 06/26/2023 11:09 AM EDT 06/26/2023 5:45 PM EDT Narrative Resulting Agency Comment Spec In Lab Ailyn Irvin MD URINE ORDERABLES Performing Organization Address [facility] Co de Phone Number [facility] [place] [address] * EKG 12 Lead (06/26/2023 6:04 AM EDT) Ventricular rate 46 BPM MUSE SYSTEM Atrial Rate 46 BPM MUSE SYSTEM P-R Interval 204 ms MUSE SYSTEM QRS Duration 90 ms MUSE SYSTEM Q-T Interval 466 ms MUSE SYSTEM QTC Calculated (Bezet) 407 ms MUSE SYSTEM Calculated P [place] 38 degrees MUSE SYSTEM Calculated R [place] 48 degrees MUSE SYSTEM Calculated T [place] 13 degrees MUSE SYSTEM INTERPRETATION Sinus bradycardia Nonspecific ST and T wave abnormality Abnormal ECG When compared with ECG of 23-JUN-2023 09:54, No significant change was found Confirmed by MD Dalia, Willy Huerta ([id number]) on 06/29/2023 6:09:20 AM MUSE SYSTEM 06/26/2023 6:04 AM EDT 06/29/2023 6:09 AM EDT Eufemia Copeland MD ECG ORDERABLES Performing Organization Address City/[facility]/ZIP Co de Phone Number MUSE SYSTEM * Differential, Automated (06/26/2023 4:06 AM EDT) Neutrophils % 55.3 % [facility] Neutr Abs (ANC) 4.63 1.70 - 6.10 x10(3)/[facility] Lymphocytes % 32.6 % [facility] Lymphocytes Abs 2.7 0.9 - 3.2 x10(3)/[facility] Monocytes % 8.2 % [facility] Monocyte Abs 0.7 0.3 - 0.9 x10(3)/[facility] Eosinophils % 3.2 % [facility] Eosinophils Abs 0.3 0.0 - 0.4 x10(3)/[facility] Basophils % 0.5 % [facility] Basophils Abs 0.0 0.0 - 0.1 x10(3)/[facility] Immature Gran % 0.20 % [facility] Comment: Immature granulocytes(IG's)percentage and absolute count will include metamyelocytes, myelocytes, and promyelocytes. Blood smears from CBCs yielding IG's will be scanned manually for concordance. If this scan disagrees with the automated IG or if promyelocytes are noted, a manual differential will be performed. Shonda Gran Abs 0.02 0.00 - 0.04 x10(3)/[facility] Blood 06/26/2023 4:06 AM EDT 06/26/2023 4:18 AM EDT Narrative Resulting Agency Comment Spec In Lab Terrence Keating MD HEMATOLOGY ORDERABLE S [facility] [place] [address] * (ABNORMAL) Hemogram (06/26/2023 4:06 AM EDT) WBC 8.4 4.0 - 9.5 x10(3)/[facility] RBC 4.52 4.00 - 5.21 x10(6)/[facility] Hemoglobin 14.0 11.7 - 15.5 g/dL [facility] Hematocrit 43.6 35.7 - 45.8 % [facility] MCV 96.5(H) 82.6 - 94.4 [facility] MCH 31.0 27.1 - 32.[address] [facility] MCHC 32.1 31.7 - 35.0 g/dL [facility] Platelets 258 145 - 357 x10(3)/[facility] RDWSD 46.7(H) 37.0 - 46.0 [facility] RDWCV 13.2 11.5 - 14.1 % [facility] MPV 11.1 7.6 - 12.9 [facility] nRBC % Auto 0.0 % [facility] nRBC Abs Auto 0.000 0.000 - 0.000 x10(3)/[facility] Blood 06/26/2023 4:06 AM EDT 06/26/2023 4:18 AM EDT Narrative Resulting Agency Comment Spec In Lab Terrence Keating MD HEMATOLOGY ORDERABLE S [facility] [place] [address] * (ABNORMAL) Basic Metabolic Panel (non-fasting) (06/26/2023 4:06 AM EDT) Glucose Lvl 100 65 - 199 mg/dL [facility] Comment:Diabetes: >=200 mg/d L plus symptoms BUN 25(H) 8 - 18 mg/dL [facility] Creatinine 1.24(H) 0.70 - 1.20 mg/dL [facility] Sodium 135 135 - 145 mmol/L [facility] Potassium 4.2 3.5 - 5.0 mmol/L [facility] Comment: Please note: ??Patients with WBC >100,000 may have falsely elevated Potassium levels. ??For accurate Potassium quantification in these patients send serum separator tube (gold top) for subsequent determinations. ??Contact the Clinical Chemistry Laboratory if there are any questions. Chloride 104 98 - 107 mmol/L [facility] CO2 19(L) 22 - 31 mmol/L [facility] Anion Gap 12 5 - 15 mmol/L [facility] Calcium 9.6 8.5 - 10.5 mg/dL [facility] Estimated GFR 52(L) >=60 mL/min/1. 73 m?? [facility] Comment: This patient's estimated GFR [...] de Phone Number [facility] [place] [address] * Phosphorus (06/26/2023 4:06 AM EDT) Phosphorus 4.3 2.5 - 4.5 mg/dL [facility] Blood 06/26/2023 4:06 AM EDT 06/26/2023 4:18 AM EDT Narrative Resulting Agency Comment Spec In Lab Eufemia Copeland MD CHEMISTRY ORDERABL ES Performing Organization Address City/[facility]/ZIP Co de Phone Number [facility] [place] [address] * Magnesium (06/26/2023 4:06 AM EDT) Magnesium 0.96 0.69 - 1.07 mmol/L [facility] Blood 06/26/2023 4:06 AM EDT 06/26/2023 4:18 AM EDT Narrative Resulting Agency Comment Spec In Lab Eufemia Copeland MD CHEMISTRY ORDERABL ES [facility] [place] [address] * Differential, Automated (06/25/2023 1:50 AM EDT) Pathologist [facility] Neutrophils % 56.2 % [facility] Neutr Abs (ANC) 4.06 1.70 - 6.10 x10(3)/[facility] Lymphocytes % 30.5 % [facility] Lymphocytes Abs 2.2 0.9 - 3.2 x10(3)/[facility] Monocytes % 8.7 % [facility] Monocyte Abs 0.6 0.3 - 0.9 x10(3)/[facility] Eosinophils % 3.9 % [facility] Eosinophils Abs 0.3 0.0 - 0.4 x10(3)/[facility] Basophils % 0.6 % [facility] Basophils Abs 0.0 0.0 - 0.1 x10(3)/[facility] Immature Gran % 0.10 % [facility] Comment: Immature granulocytes(IG's)percentage and absolute count will include metamyelocytes, myelocytes, and promyelocytes. Blood smears from CBCs yielding IG's will be scanned manually for concordance. If this scan disagrees with the automated IG or if promyelocytes are noted, a manual differential will be performed. Shonda Gran Abs 0.01 0.00 - 0.04 x10(3)/[facility] Blood 06/25/2023 1:50 AM EDT 06/25/2023 2:16 AM EDT Narrative Resulting Agency Comment Spec In Lab Terrence Keating MD HEMATOLOGY ORDERABLE S [facility] [place] [address] * Hemogram (06/25/2023 1:50 AM EDT) WBC 7.2 4.0 - 9.5 x10(3)/[facility] RBC 4.57 4.00 - 5.21 x10(6)/[facility] Hemoglobin 14.4 11.7 - 15.5 g/dL [facility] Hematocrit 42.9 35.7 - 45.8 % [facility] MCV 93.9 82.6 - 94.4 [facility] MCH 31.5 27.1 - 32.[address] [facility] MCHC 33.6 31.7 - 35.0 g/dL [facility] Platelets 241 145 - 357 x10(3)/[facility] RDWSD 44.7 37.0 - 46.0 [facility] RDWCV 13.2 11.5 - 14.1 % [facility] MPV 11.5 7.6 - 12.9 [facility] nRBC % Auto 0.0 % [facility] nRBC Abs Auto 0.000 0.000 - 0.000 x10(3)/[facility] Blood 06/25/2023 1:50 AM EDT 06/25/2023 2:16 AM EDT Narrative Resulting Agency Comment Spec In Lab Terrence Keating MD HEMATOLOGY ORDERABLE S [facility] [place] [address] * (ABNORMAL) Basic Metabolic Panel (non-fasting) (06/25/2023 1:50 AM EDT) Glucose Lvl 99 65 - 199 mg/dL [facility] Comment:Diabetes: >=200 mg/d L plus symptoms BUN 20(H) 8 - 18 mg/dL [facility] Creatinine 1.59(H) 0.70 - 1.20 mg/dL [facility] Sodium 139 135 - 145 mmol/L [facility] Potassium 3.4(L) 3.5 - 5.0 mmol/L [facility] Comment: Please note: ??Patients with WBC >100,000 may have falsely elevated Potassium levels. ??For accurate Potassium quantification in these patients send serum separator tube (gold top) for subsequent determinations. ??Contact the Clinical Chemistry Laboratory if there are any questions. Chloride 102 98 - 107 mmol/L [facility] CO2 25 22 - 31 mmol/L [facility] Anion Gap 12 5 - 15 mmol/L [facility] Calcium 9.4 8.5 - 10.5 mg/dL [facility] Estimated GFR 38(L) >=60 mL/min/1. 73 m?? [facility] Comment: This patient's estimated GFR [...] Lab Eufemia Copeland MD CHEMISTRY ORDERABL ES [facility] [place] [address] * Phosphorus (06/25/2023 1:50 AM EDT) Phosphorus 4.4 2.5 - 4.5 mg/dL [facility] Blood 06/25/2023 1:50 AM EDT 06/25/2023 2:16 AM EDT Narrative Resulting Agency Comment Spec In Lab Eufemia Copeland MD CHEMISTRY ORDERABL ES Performing Organization Address [facility]/ZIP Co de Phone Number [facility] [place] [address] * Magnesium (06/25/2023 1:50 AM EDT) Magnesium 0.99 0.69 - 1.07 mmol/L [facility] Blood 06/25/2023 1:50 AM EDT 06/25/2023 2:16 AM EDT Narrative Resulting Agency Comment Spec In Lab Eufemia Copeland MD CHEMISTRY ORDERABL ES Performing Organization Address [facility]/ZIP Co de Phone Number [facility] [place] [address] * (ABNORMAL) pro-Brain Natriuretic Peptide (06/24/2023 3:38 AM EDT) ProBNP 1,239(H) <=124 pg/mL [facility] Blood Venous Draw / Unknown 06/24/2023 3:38 AM EDT 06/24/2023 3:49 AM EDT Narrative Resulting Agency Comment Spec In Lab Ailyn Irvin MD CHEMISTRY ORDERABLES Performing Organization Address [facility]/ZIP Co de Phone Number [facility] [place] [address] * Differential, Automated (06/24/2023 3:38 AM EDT) Neutrophils % 51.6 % [facility] Neutr Abs (ANC) 3.54 1.70 - 6.10 x10(3)/[facility] Lymphocytes % 36.0 % [facility] Lymphocytes Abs 2.5 0.9 - 3.2 x10(3)/[facility] Monocytes % 7.8 % [facility] Monocyte Abs 0.5 0.3 - 0.9 x10(3)/[facility] Eosinophils % 3.6 % [facility] Eosinophils Abs 0.2 0.0 - 0.4 x10(3)/[facility] Basophils % 0.7 % [facility] Basophils Abs 0.0 0.0 - 0.1 x10(3)/[facility] Immature Gran % 0.30 % [facility] Comment: Immature granulocytes(IG's)percentage and absolute count will include metamyelocytes, myelocytes, and promyelocytes. Blood smears from CBCs yielding IG's will be scanned manually for concordance. If this scan disagrees with the automated IG or if promyelocytes are noted, a manual differential will be performed. Shonda Gran Abs 0.02 0.00 - 0.04 x10(3)/[facility] Blood 06/24/2023 3:38 AM EDT 06/24/2023 3:49 AM EDT Narrative Resulting Agency Comment Spec In Lab Terrence Keating MD HEMATOLOGY ORDERABLE S [facility] [place] [address] * Hemogram (06/24/2023 3:38 AM EDT) WBC 6.9 4.0 - 9.5 x10(3)/[facility] RBC 4.36 4.00 - 5.21 x10(6)/[facility] Hemoglobin 13.6 11.7 - 15.5 g/dL [facility] Hematocrit 40.7 35.7 - 45.8 % [facility] MCV 93.3 82.6 - 94.[address] [facility] MCH 31.2 27.1 - 32.[address] [facility] MCHC 33.4 31.7 - 35.0 g/dL [facility] Platelets 220 145 - 357 x10(3)/[facility] RDWSD 44.5 37.0 - 46.[address] [facility] RDWCV 13.0 11.5 - 14.1 % [facility] MPV 10.8 7.6 - 12.9 [facility] nRBC % Auto 0.0 % [facility] nRBC Abs Auto 0.000 0.000 - 0.000 x10(3)/[facility] Blood 06/24/2023 3:38 AM EDT 06/24/2023 3:49 AM EDT Narrative Resulting Agency Comment Spec In Lab Terrence Keating MD HEMATOLOGY ORDERABLE S [facility] [place] [address] * Heparin (unfractionated) Level (06/24/2023 3:38 AM EDT) Heparin UFH Level 0.44 IU/mL [facility] Comment: Heparin (anti-Xa) levels should [...] Lab Terrence Keating MD HEMATOLOGY ORDERABLE S [facility] [place] [address] * (ABNORMAL) Basic Metabolic Panel (non-fasting) (06/24/2023 3:38 AM EDT) Glucose Lvl 96 65 - 199 mg/dL [facility] Comment:Diabetes: >=200 mg/d L plus symptoms BUN 20(H) 8 - 18 mg/dL [facility] Creatinine 1.14 0.70 - 1.20 mg/dL [facility] Sodium 138 135 - 145 mmol/L [facility] Potassium 4.2 3.5 - 5.0 mmol/L [facility] Comment: Please note: ??Patients with WBC >100,000 may have falsely elevated Potassium levels. ??For accurate Potassium quantification in these patients send serum separator tube (gold top) for subsequent determinations. ??Contact the Clinical Chemistry Laboratory if there are any questions. Chloride 104 98 - 107 mmol/L [facility] CO2 21(L) 22 - 31 mmol/L [facility] Anion Gap 13 5 - 15 mmol/L [facility] Calcium 9.1 8.5 - 10.5 mg/dL [facility] Estimated GFR 57(L) >=60 mL/min/1. 73 m?? [facility] Comment: This patient's estimated GFR [...] MD CHEMISTRY ORDERABL ES Performing Organization Address [facility] Co de Phone Number [facility] [place] [address] * Phosphorus (06/24/2023 3:38 AM EDT) Phosphorus 4.1 2.5 - 4.5 mg/dL [facility] Blood 06/24/2023 3:38 AM EDT 06/24/2023 3:49 AM EDT Narrative Resulting Agency Comment Spec In Lab Eufemia Copeland MD CHEMISTRY ORDERABL ES Performing Organization Address [facility] Co de Phone Number [facility] [place] [address] * Magnesium (06/24/2023 3:38 AM EDT) Magnesium 0.96 0.69 - 1.07 mmol/L [facility] Blood 06/24/2023 3:38 AM EDT 06/24/2023 3:49 AM EDT Narrative Resulting Agency Comment Spec In Lab Eufemia Copeland MD CHEMISTRY ORDERABL ES Performing Organization Address [facility] Co de Phone Number [facility] [place] [address] * Heparin (unfractionated) Level (06/23/2023 9:24 PM EDT) Heparin UFH Level 0.51 IU/mL [facility] Comment: Heparin (anti-Xa) levels should [...] HEMATOLOGY ORDERABLE S Performing Organization Address City/State/[facility] Co de Phone Number [facility] [place] [phone] * Duplex Study Visceral Arteries, Comp (06/23/2023 3:36 PM EDT) VB Text Report Department: Vascular Surgery Lab Patient: [id number] (LOIDA ROQUE) CPT: 84664 Referring Physician: AILYN IRVIN ?? Phone: Indications: [...] PM EDT) Heparin UFH Level 0.90 IU/mL [facility] Comment: Heparin (anti-Xa) levels should [...] ORDERABLE S Performing Organization Address City/[facility] Co de Phone Number [facility] [place] [address] * EKG 12 Lead (06/23/2023 9:54 AM EDT) Ventricular rate 48 BPM MUSE SYSTEM Atrial Rate 48 BPM MUSE SYSTEM P-R Interval 192 ms MUSE SYSTEM QRS Duration 92 ms MUSE SYSTEM Q-T Interval 462 ms MUSE SYSTEM QTC Calculated (Bezet) 412 ms MUSE SYSTEM Calculated P [place] 21 degrees MUSE SYSTEM Calculated R [place] 20 degrees MUSE SYSTEM Calculated T [place] 16 degrees MUSE SYSTEM INTERPRETATION Sinus bradycardia Nonspecific ST and T wave abnormality Abnormal ECG When compared with ECG of 22-JUN-2023 11:13, Criteria for Septal infarct are no longer Present No significant change was found Confirmed by MD [place], Gus ([id number]) on 06/23/2023 12:59:50 PM MUSE SYSTEM 06/23/2023 9:54 AM EDT 06/23/2023 12:59 PM EDT Ailyn Irvin MD ECG ORDERABLES Performing Organization Address [facility] Co de Phone Number MUSE SYSTEM * Differential, Automated (06/23/2023 4:12 AM EDT) Neutrophils % 52.8 % [facility] Neutr Abs (ANC) 4.30 1.70 - 6.10 x10(3)/[facility] Lymphocytes % 33.9 % [facility] Lymphocytes Abs 2.8 0.9 - 3.2 x10(3)/[facility] Monocytes % 8.3 % [facility] Monocyte Abs 0.7 0.3 - 0.9 x10(3)/[facility] Eosinophils % 3.9 % [facility] Eosinophils Abs 0.3 0.0 - 0.4 x10(3)/[facility] Basophils % 0.7 % [facility] Basophils Abs 0.1 0.0 - 0.1 x10(3)/[facility] Immature Gran % 0.40 % [facility] Comment: Immature granulocytes(IG's)percentage and absolute count will include metamyelocytes, myelocytes, and promyelocytes. Blood smears from CBCs yielding IG's will be scanned manually for concordance. If this scan disagrees with the automated IG or if promyelocytes are noted, a manual differential will be performed. Shonda Gran Abs 0.03 0.00 - 0.04 x10(3)/[facility] Blood 06/23/2023 4:12 AM EDT 06/23/2023 4:38 AM EDT Narrative Resulting Agency Comment Spec In Lab Terrence Keating MD HEMATOLOGY ORDERABLE S [facility] [place] [address] * Hemogram (06/23/2023 4:12 AM EDT) WBC 8.2 4.0 - 9.5 x10(3)/[facility] RBC 4.59 4.00 - 5.21 x10(6)/[facility] Hemoglobin 14.3 11.7 - 15.5 g/dL [facility] Hematocrit 43.1 35.7 - 45.8 % [facility] MCV 93.9 82.6 - 94.[address] [facility] MCH 31.2 27.1 - 32.0 pg [facility] MCHC 33.2 31.7 - 35.0 g/dL [facility] Platelets 233 145 - 357 x10(3)/[facility] RDWSD 44.2 37.0 - 46.[address] [facility] RDWCV 13.0 11.5 - 14.1 % [facility] MPV 11.3 7.6 - 12.[address] [facility] nRBC % Auto 0.0 % [facility] nRBC Abs Auto 0.000 0.000 - 0.000 x10(3)/mcL [facility] Blood 06/23/2023 4:12 AM EDT 06/23/2023 4:38 AM EDT Narrative Resulting Agency Comment Spec In Lab Terrence Keating MD HEMATOLOGY ORDERABLE S Performing Organization Address City/[facility] Co de Phone Number [facility] [place] [address] * (ABNORMAL) Heparin (unfractionated) Level (06/23/2023 4:12 AM EDT) Heparin UFH Level 1.95(Crit ical) IU/mL [facility] Comment: Critical Result called by [...] Lab Terrence Keating MD HEMATOLOGY ORDERABLE S [facility] [place] [address] * (ABNORMAL) Basic Metabolic Panel (non-fasting) (06/23/2023 4:12 AM EDT) Glucose Lvl 87 65 - 199 mg/dL [facility] Comment:Diabetes: >=200 mg/d L plus symptoms BUN 23(H) 8 - 18 mg/dL [facility] Creatinine 1.08 0.70 - 1.20 mg/dL [facility] Sodium 137 135 - 145 mmol/L [facility] Potassium 3.8 3.5 - 5.0 mmol/L [facility] Comment: Please note: ??Patients with WBC >100,000 may have falsely elevated Potassium levels. ??For accurate Potassium quantification in these patients send serum separator tube (gold top) for subsequent determinations. ??Contact the Clinical Chemistry Laboratory if there are any questions. Chloride 103 98 - 107 mmol/L [facility] CO2 22 22 - 31 mmol/L [facility] Anion Gap 12 5 - 15 mmol/L [facility] Calcium 9.3 8.5 - 10.5 mg/dL [facility] Estimated GFR 61 >=60 mL/min/1. 73 m?? [facility] Comment: This patient's estimated GFR [...] MD CHEMISTRY ORDERABL ES Performing Organization Address [facility] Co de Phone Number [facility] [place] [address] * Phosphorus (06/23/2023 4:12 AM EDT) Phosphorus 4.5 2.5 - 4.5 mg/dL [facility] Blood 06/23/2023 4:12 AM EDT 06/23/2023 4:38 AM EDT Narrative Resulting Agency Comment Spec In Lab Eufemia Copeland MD CHEMISTRY ORDERABL ES Performing Organization Address [facility] Co de Phone Number [facility] [place] [address] * Magnesium (06/23/2023 4:12 AM EDT) Magnesium 1.03 0.69 - 1.07 mmol/L [facility] Blood 06/23/2023 4:12 AM EDT 06/23/2023 4:38 AM EDT Narrative Resulting Agency Comment Spec In Lab Eufemia Copeland MD CHEMISTRY ORDERABL ES Performing Organization Address [facility] Co de Phone Number [facility] [place] [address] * ECHO LMTD W CONTRAST W LMTD SPEC DOPP COLOR DOPP (06/22/2023 4:25 PM EDT) Anatomical Region Laterality Modality Cardiac Other 06/22/2023 2:49 PM EDT Narrative 06/22/2023 4:42 PM EDT 1 [place] [address] ? Echocardiogram Report Name: LOIDA ROQUE ?Study Date: 06/22/2023 02:49 PM ?Patient Location: [facility] 0466 A ??HR: 57 : 1970 ?Height: 162 cm ? Account: [id number] Age: 53 yrs ?Weight: 102 kg Gender: [...] slight decrease in LV systolic function. Procedure Complete-57329. Satisfactory quality. There is normal sinus rhythm. [...] Note Jose Gallegos MD - 06/22/2023 1 [place] [id number] Echocardiogram Report Name: LOIDA ROQUE Study Date: 06/22/2023 02:49 PM Patient Location: [place] [address] A HR:57 : 1970 Height: 162 cmAccount: [id number] Age: 53 yrs Weight: 102 kg Gender: [...] a slightdecrease in LV systolic function. Procedure Complete-73030. Satisfactory quality. There is normal sinus rhythm. [...] PM EDT) Troponin-T HS 22(H) <=14 ng/L [facility] Comment: This patient's troponin T [...] [facility] Laboratory Test Catalog Reference: Fourth [place] Definition of Myocardial Infarction. Journal of the [employer] 2018;72:5273-0613 Blood 06/22/2023 2:38 PM EDT 06/22/2023 2:50 PM EDT Narrative Resulting Agency Comment Spec In Lab Ailyn Irvin MD CHEMISTRY ORDERABLES [facility] [place] [address] * Duplex for DVT, Arm, Unilat (06/22/2023 2:24 PM EDT) VB Text Report Department: Vascular Surgery Lab Patient: [id number] (LOIDA ROQUE) CPT: 48032 Referring Physician: AILYN IRVIN ?? Phone: Indications: [...] who have questions please contact the health director of medicare that requested your imaging first. ? Narrative [...] patients who have questions please contactthe health director of medicare that requested your imaging first. Ailyn Irvin MD IMG DX ORDERABLES * (ABNORMAL) Troponin (06/22/2023 11:24 AM EDT) Troponin-T HS 22(H) <=14 ng/L [facility] Comment: This patient's troponin T [...] [facility] Laboratory Test Catalog Reference: Fourth [place] Definition of Myocardial Infarction. Journal of the [employer] 2018;72:6071-3183 Blood 06/22/2023 11:2 4 AM EDT 06/22/2023 11:44 AM EDT Narrative Resulting Agency Comment Spec In Lab Ailyn Irvin MD CHEMISTRY ORDERABLES Performing Organization Address [facility]/ZIP Co de Phone Number [facility] [place] [address] * EKG 12 Lead (06/22/2023 11:13 AM EDT) Ventricular rate 63 BPM MUSE SYSTEM Atrial Rate 63 BPM MUSE SYSTEM P-R Interval 162 ms MUSE SYSTEM QRS Duration 86 ms MUSE SYSTEM Q-T Interval 382 ms MUSE SYSTEM QTC Calculated (Bezet) 390 ms MUSE SYSTEM Calculated P [place] 24 degrees MUSE SYSTEM Calculated R [place] 32 degrees MUSE SYSTEM Calculated T [place] -2 degrees MUSE SYSTEM INTERPRETATION Normal sinus rhythm Septal infarct (cited on or before 22-JUN-2023) Possible Lateral infarct , age undetermined ST & T wave abnormality, consider inferolateral ischemia Abnormal ECG When compared with ECG of 22-JUN-2023 10:55, No significant change was found Confirmed by MD Angelo Danette ([id number]) on 06/22/2023 3:56:31 PM MUSE SYSTEM 06/22/2023 11:1 3 AM EDT 06/22/2023 3:56 PM EDT Ailyn Irvin MD ECG ORDERABLES Performing Organization Address City/[facility]/ZIP Co de Phone Number MUSE SYSTEM * EKG 12 Lead (06/22/2023 10:55 AM EDT) Ventricular rate 56 BPM MUSE SYSTEM Atrial Rate 56 BPM MUSE SYSTEM P-R Interval 168 ms MUSE SYSTEM QRS Duration 88 ms MUSE SYSTEM Q-T Interval 426 ms MUSE SYSTEM QTC Calculated (Bezet) 411 ms MUSE SYSTEM Calculated P [place] 22 degrees MUSE SYSTEM Calculated R [place] 20 degrees MUSE SYSTEM Calculated T [place] 10 degrees MUSE SYSTEM INTERPRETATION Sinus bradycardia Septal infarct , age undetermined ST & T wave abnormality, consider inferolateral ischemia Abnormal ECG When compared with ECG of 21-JUN-2023 10:06, Septal infarct is now Present Confirmed by MD Angelo Danette ([id number]) on 06/22/2023 3:55:53 PM MUSE SYSTEM 06/22/2023 10:5 5 AM EDT 06/22/2023 3:55 PM EDT Ailyn Irvin MD ECG ORDERABLES MUSE SYSTEM * Differential, Automated (06/22/2023 4:34 AM EDT) Neutrophils % 54.4 % [facility] Neutr Abs (ANC) 4.07 1.70 - 6.10 x10(3)/[facility] Lymphocytes % 30.6 % [facility] Lymphocytes Abs 2.3 0.9 - 3.2 x10(3)/[facility] Monocytes % 9.9 % [facility] Monocyte Abs 0.7 0.3 - 0.9 x10(3)/[facility] Eosinophils % 4.3 % [facility] Eosinophils Abs 0.3 0.0 - 0.4 x10(3)/[facility] Basophils % 0.7 % [facility] Basophils Abs 0.0 0.0 - 0.1 x10(3)/[facility] Immature Gran % 0.10 % [facility] Comment: Immature granulocytes(IG's)percentage and absolute count will include metamyelocytes, myelocytes, and promyelocytes. Blood smears from CBCs yielding IG's will be scanned manually for concordance. If this scan disagrees with the automated IG or if promyelocytes are noted, a manual differential will be performed. Shonda Gran Abs 0.01 0.00 - 0.04 x10(3)/[facility] Blood 06/22/2023 4:34 AM EDT 06/22/2023 4:42 AM EDT Narrative Resulting Agency Comment Spec In Lab Terrence Keating MD HEMATOLOGY ORDERABLE S [facility] [place] [address] * (ABNORMAL) Hemogram (06/22/2023 4:34 AM EDT) WBC 7.5 4.0 - 9.5 x10(3)/[facility] RBC 4.04 4.00 - 5.21 x10(6)/[facility] Hemoglobin 12.8 11.7 - 15.5 g/dL [facility] Hematocrit 39.1 35.7 - 45.8 % [facility] MCV 96.8(H) 82.6 - 94.4 [facility] MCH 31.7 27.1 - 32.[address] [facility] MCHC 32.7 31.7 - 35.0 g/dL [facility] Platelets 225 145 - 357 x10(3)/[facility] RDWSD 45.9 37.0 - 46.0 [facility] RDWCV 13.0 11.5 - 14.1 % [facility] MPV 10.6 7.6 - 12.9 [facility] nRBC % Auto 0.0 % [facility] nRBC Abs Auto 0.000 0.000 - 0.000 x10(3)/[facility] Blood 06/22/2023 4:34 AM EDT 06/22/2023 4:42 AM EDT Narrative Resulting Agency Comment Spec In Lab Terrence Keating MD HEMATOLOGY ORDERABLE S [facility] [place] [address] * (ABNORMAL) Basic Metabolic Panel (non-fasting) (06/22/2023 4:34 AM EDT) Glucose Lvl 94 65 - 199 mg/dL [facility] Comment:Diabetes: >=200 mg/d L plus symptoms BUN 22(H) 8 - 18 mg/dL [facility] Creatinine 1.19 0.70 - 1.20 mg/dL [facility] Sodium 138 135 - 145 mmol/L [facility] Potassium 3.9 3.5 - 5.0 mmol/L [facility] Comment: Please note: ??Patients with WBC >100,000 may have falsely elevated Potassium levels. ??For accurate Potassium quantification in these patients send serum separator tube (gold top) for subsequent determinations. ??Contact the Clinical Chemistry Laboratory if there are any questions. Chloride 102 98 - 107 mmol/L [facility] CO2 19(L) 22 - 31 mmol/L [facility] Anion Gap 17(H) 5 - 15 mmol/L [facility] Calcium 9.4 8.5 - 10.5 mg/dL [facility] Estimated GFR 54(L) >=60 mL/min/1. 73 m?? [facility] Comment: This patient's estimated GFR [...] MD CHEMISTRY ORDERABL ES Performing Organization Address [facility] de Phone Number [facility] [place] [address] * (ABNORMAL) Phosphorus (06/22/2023 4:34 AM EDT) Phosphorus 4.9(H) 2.5 - 4.5 mg/dL [facility] Blood 06/22/2023 4:34 AM EDT 06/22/2023 4:42 AM EDT Narrative Resulting Agency Comment Spec In Lab Eufemia Copeland MD CHEMISTRY ORDERABL ES Performing Organization Address [facility] de Phone Number [facility] [place] [address] * Magnesium (06/22/2023 4:34 AM EDT) Magnesium 1.02 0.69 - 1.07 mmol/L [facility] Blood 06/22/2023 4:34 AM EDT 06/22/2023 4:42 AM EDT Narrative Resulting Agency Comment Spec In Lab Eufemia Copeland MD CHEMISTRY ORDERABL ES Performing Organization Address [facility] de Phone Number [facility] [place] [address] * CT Abdomen & Pelvis w Contrast [...] who have questions please contact the health director of medicare that requested your imaging first. ? Narrative [...] patients who have questions please contactthe health director of medicare that requested your imaging first. Eufemia Copeland MD IMG CT ORDERABLES * EKG 12 Lead (06/21/2023 10:06 AM EDT) Ventricular rate 51 BPM MUSE SYSTEM Atrial Rate 51 BPM MUSE SYSTEM P-R Interval 176 ms MUSE SYSTEM QRS Duration 92 ms MUSE SYSTEM Q-T Interval 450 ms MUSE SYSTEM QTC Calculated (Bezet) 414 ms MUSE SYSTEM Calculated P [place] 17 degrees MUSE SYSTEM Calculated R [place] 35 degrees MUSE SYSTEM Calculated T [place] 13 degrees MUSE SYSTEM INTERPRETATION Sinus bradycardia [...] AM EDT) Troponin-T HS 22(H) <=14 ng/L [facility] Comment: This patient's troponin T [...] [facility] Laboratory Test Catalog Reference: Fourth [place] Definition of Myocardial Infarction. Journal of the [employer] 2018;72:2716-4762 Blood 06/21/2023 9:45 AM EDT 06/21/2023 10:08 AM EDT Narrative Resulting Agency Comment Spec In Lab Eufemia Copeland MD CHEMISTRY ORDERABL ES Performing Organization Address [facility] Co de Phone Number [facility] [place] [address] * (ABNORMAL) pro-Brain Natriuretic Peptide (06/21/2023 5:58 AM EDT) ProBNP 1,370(H) <=124 pg/mL [facility] Blood Venous Draw / Unknown 06/21/2023 5:58 AM EDT 06/21/2023 7:28 AM EDT Narrative Resulting Agency Comment Spec In Lab Eufemia Copeland MD CHEMISTRY ORDERABL ES Performing Organization Address [facility] Co de Phone Number [facility] [place] [address] * Potassium (06/21/2023 5:58 AM EDT) Pathologist [facility] Potassium 4.0 3.5 - 5.0 mmol/L [facility] Comment: Please note: ??Patients with [...] MD CHEMISTRY ORDERABL ES Performing Organization Address [facility] Co de Phone Number [facility] [place] [address] * Differential, Automated (06/21/2023 3:25 AM EDT) Neutrophils % 54.0 % [facility] Neutr Abs (ANC) 5.02 1.70 - 6.10 x10(3)/[facility] Lymphocytes % 31.8 % [facility] Lymphocytes Abs 3.0 0.9 - 3.2 x10(3)/[facility] Monocytes % 8.9 % [facility] Monocyte Abs 0.8 0.3 - 0.9 x10(3)/[facility] Eosinophils % 4.2 % [facility] Eosinophils Abs 0.4 0.0 - 0.4 x10(3)/[facility] Basophils % 0.8 % [facility] Basophils Abs 0.1 0.0 - 0.1 x10(3)/[facility] Immature Gran % 0.30 % [facility] Comment: Immature granulocytes(IG's)percentage and absolute count will include metamyelocytes, myelocytes, and promyelocytes. Blood smears from CBCs yielding IG's will be scanned manually for concordance. If this scan disagrees with the automated IG or if promyelocytes are noted, a manual differential will be performed. Shonda Gran Abs 0.03 0.00 - 0.04 x10(3)/[facility] Blood 06/21/2023 3:25 AM EDT 06/21/2023 3:45 AM EDT Narrative Resulting Agency Comment Spec In Lab Terrence Keating MD HEMATOLOGY ORDERABLE S [facility] [place] [address] * Hemogram (06/21/2023 3:25 AM EDT) WBC 9.3 4.0 - 9.5 x10(3)/[facility] RBC 4.74 4.00 - 5.21 x10(6)/[facility] Hemoglobin 14.9 11.7 - 15.5 g/dL [facility] Hematocrit 44.2 35.7 - 45.8 % [facility] MCV 93.2 82.6 - 94.[address] [facility] MCH 31.4 27.1 - 32.[address] [facility] MCHC 33.7 31.7 - 35.0 g/dL [facility] Platelets 279 145 - 357 x10(3)/[facility] RDWSD 44.7 37.0 - 46.0 [facility] RDWCV 13.1 11.5 - 14.1 % [facility] MPV 11.1 7.6 - 12.9 [facility] nRBC % Auto 0.0 % [facility] nRBC Abs Auto 0.000 0.000 - 0.000 x10(3)/[facility] Blood 06/21/2023 3:25 AM EDT 06/21/2023 3:45 AM EDT Narrative Resulting Agency Comment Spec In Lab Terrence Keating MD HEMATOLOGY ORDERABLE S [facility] [place] [address] * (ABNORMAL) Basic Metabolic Panel (non-fasting) (06/21/2023 3:25 AM EDT) Glucose Lvl 95 65 - 199 mg/dL [facility] Comment:Diabetes: >=200 mg/d L plus symptoms BUN 27(H) 8 - 18 mg/dL [facility] Creatinine 1.11 0.70 - 1.20 mg/dL [facility] Sodium 138 135 - 145 mmol/L [facility] Potassium Not Perf 3.5 - 5.0 [facility] Comment: Unable to quantitate due [...] questions. Chloride 100 98 - 107 mmol/L [facility] CO2 26 22 - 31 mmol/L [facility] Anion Gap 12 5 - 15 mmol/L [facility] Calcium 9.7 8.5 - 10.5 mg/dL [facility] Estimated GFR 59(L) >=60 mL/min/1. 73 m?? [facility] Comment: This patient's estimated GFR [...] de Phone Number [facility] [place] [address] * (ABNORMAL) Phosphorus (06/21/2023 3:25 AM EDT) Phosphorus 5.1(H) 2.5 - 4.5 mg/dL [facility] Blood 06/21/2023 3:25 AM EDT 06/21/2023 3:45 AM EDT Narrative Resulting Agency Comment Spec In Lab Eufemia Copeland MD CHEMISTRY ORDERABL ES [facility] [place] [address] * Magnesium (06/21/2023 3:25 AM EDT) Pathologist [facility] Magnesium 1.04 0.69 - 1.07 mmol/L [facility] Blood 06/21/2023 3:25 AM EDT 06/21/2023 3:45 AM EDT Narrative Resulting Agency Comment Spec In Lab Eufemia Copeland MD CHEMISTRY ORDERABL ES [facility] [place] [address] * (ABNORMAL) Differential, Automated (06/20/2023 3:32 AM EDT) [facility] Neutrophils % 52.5 % [facility] Neutr Abs (ANC) 5.28 1.70 - 6.10 x10(3)/ L [facility] Lymphocytes % 32.4 % [facility] Lymphocytes Abs 3.3(H) 0.9 - 3.2 x10(3)/[facility] Monocytes % 9.7 % [facility] Monocyte Abs 1.0(H) 0.3 - 0.9 x10(3)/ L [facility] Eosinophils % 4.3 % [facility] Eosinophils Abs 0.4 0.0 - 0.4 x10(3)/ L [facility] Basophils % 0.7 % [facility] Basophils Abs 0.1 0.0 - 0.1 x10(3)/ L [facility] Immature Gran % 0.40 % [facility] Comment: Immature granulocytes(IG's)percentage and absolute count will include metamyelocytes, myelocytes, and promyelocytes. Blood smears from CBCs yielding IG's will be scanned manually for concordance. If this scan disagrees with the automated IG or if promyelocytes are noted, a manual differential will be performed. Shonda Gran Abs 0.04 0.00 - 0.04 x10(3)/mc L [facility] Blood 06/20/2023 3:32 AM EDT 06/20/2023 3:47 AM EDT Narrative Resulting Agency Comment Spec In Lab Terrence Keating MD HEMATOLOGY ORDERABLE S [facility] [place] [address] * (ABNORMAL) Hemogram (06/20/2023 3:32 AM EDT) WBC 10.1(H) 4.0 - 9.5 x10(3)/[facility] RBC 4.57 4.00 - 5.21 x10(6)/[facility] Hemoglobin 14.2 11.7 - 15.5 g/dL [facility] Hematocrit 41.5 35.7 - 45.8 % [facility] MCV 90.8 82.6 - 94.[address] [facility] MCH 31.1 27.1 - 32.[address] [facility] MCHC 34.2 31.7 - 35.0 g/dL [facility] Platelets 253 145 - 357 x10(3)/[facility] RDWSD 43.7 37.0 - 46.[address] [facility] RDWCV 13.2 11.5 - 14.1 % [facility] MPV 10.8 7.6 - 12.[address] [facility] nRBC % Auto 0.0 % [facility] nRBC Abs Auto 0.000 0.000 - 0.000 x10(3)/[facility] Blood 06/20/2023 3:32 AM EDT 06/20/2023 3:47 AM EDT Narrative Resulting Agency Comment Spec In Lab Terrence Keating MD HEMATOLOGY ORDERABLE S [facility] [place] [address] * (ABNORMAL) Basic Metabolic Panel (non-fasting) (06/20/2023 3:32 AM EDT) Glucose Lvl 99 65 - 199 mg/dL [facility] Comment:Diabetes: >=200 mg/d L plus symptoms BUN 26(H) 8 - 18 mg/dL [facility] Creatinine 1.12 0.70 - 1.20 mg/dL [facility] Sodium 137 135 - 145 mmol/L [facility] Potassium 3.7 3.5 - 5.0 mmol/L [facility] Comment: Please note: ??Patients with WBC >100,000 may have falsely elevated Potassium levels. ??For accurate Potassium quantification in these patients send serum separator tube (gold top) for subsequent determinations. ??Contact the Clinical Chemistry Laboratory if there are any questions. Chloride 102 98 - 107 mmol/L [facility] CO2 22 22 - 31 mmol/L [facility] Anion Gap 13 5 - 15 mmol/L [facility] Calcium 9.4 8.5 - 10.5 mg/dL [facility] Estimated GFR 58(L) >=60 mL/min/1. 73 m?? [facility] Comment: This patient's estimated GFR [...] de Phone Number [facility] [place] [address] * Phosphorus (06/20/2023 3:32 AM EDT) Phosphorus 4.3 2.5 - 4.5 mg/dL [facility] Blood 06/20/2023 3:32 AM EDT 06/20/2023 3:47 AM EDT Narrative Resulting Agency Comment Spec In Lab Eufemia Copeland MD CHEMISTRY ORDERABL ES Performing Organization Address [facility] Co de Phone Number [facility] [place] [address] * Magnesium (06/20/2023 3:32 AM EDT) Magnesium 1.00 0.69 - 1.07 mmol/L [facility] Blood 06/20/2023 3:32 AM EDT 06/20/2023 3:47 AM EDT Narrative Resulting Agency Comment Spec In Lab Eufemia Copeland MD CHEMISTRY ORDERABL ES Performing Organization Address [facility] Co de Phone Number [facility] [place] [address] * Phosphorus (06/19/2023 5:26 PM EDT) Phosphorus 4.0 2.5 - 4.5 mg/dL [facility] Blood 06/19/2023 5:26 PM EDT 06/19/2023 5:32 PM EDT Narrative Resulting Agency Comment Spec In Lab Eufemia Copeland MD CHEMISTRY ORDERABL ES Performing Organization Address City/[facility]/ZIP Co de Phone Number [facility] [place] [address] * Magnesium (06/19/2023 5:26 PM EDT) Magnesium 0.98 0.69 - 1.07 mmol/L [facility] Blood 06/19/2023 5:26 PM EDT 06/19/2023 5:32 PM EDT Narrative Resulting Agency Comment Spec In Lab Eufemia Copeland MD CHEMISTRY ORDERABL ES [facility] [place] [address] * (ABNORMAL) Basic Metabolic Panel (non-fasting) (06/19/2023 5:26 PM EDT) Glucose Lvl 105 65 - 199 mg/dL [facility] Comment:Diabetes: >=200 mg/d L plus symptoms BUN 21(H) 8 - 18 mg/dL [facility] Creatinine 1.06 0.70 - 1.20 mg/dL [facility] Sodium 139 135 - 145 mmol/L [facility] Potassium 3.9 3.5 - 5.0 mmol/L [facility] Comment: Please note: ??Patients with WBC >100,000 may have falsely elevated Potassium levels. ??For accurate Potassium quantification in these patients send serum separator tube (gold top) for subsequent determinations. ??Contact the Clinical Chemistry Laboratory if there are any questions. Chloride 103 98 - 107 mmol/L [facility] CO2 22 22 - 31 mmol/L [facility] Anion Gap 14 5 - 15 mmol/L [facility] Calcium 9.5 8.5 - 10.5 mg/dL [facility] Estimated GFR 62 >=60 mL/min/1. 73 m?? [facility] Comment: This patient's estimated GFR [...] MD CHEMISTRY ORDERABL ES Performing Organization Address [facility]/ZIP Co de Phone Number [facility] [place] [phone] * EKG 12 Lead (06/19/2023 4:24 AM EDT) Ventricular rate 66 BPM MUSE SYSTEM Atrial Rate 66 BPM MUSE SYSTEM P-R Interval 188 ms MUSE SYSTEM QRS Duration 92 ms MUSE SYSTEM Q-T Interval 484 ms MUSE SYSTEM QTC Calculated (Bezet) 507 ms MUSE SYSTEM Calculated P [place] 32 degrees MUSE SYSTEM Calculated R [place] 22 degrees MUSE SYSTEM Calculated T [place] 47 degrees MUSE SYSTEM INTERPRETATION Normal sinus rhythm Nonspecific ST abnormality Prolonged QT Abnormal ECG When compared with ECG of 15-JUN-2023 10:50, No significant change was found Confirmed by MD AKIRA, CINDY ([id number]) on 06/19/2023 2:42:42 PM MUSE SYSTEM 06/19/2023 4:24 AM EDT 06/19/2023 2:42 PM EDT Terrence Keating MD ECG ORDERABLES Performing Organization Address [facility]/ZIP Co de Phone Number MUSE SYSTEM * (ABNORMAL) Basic Metabolic Panel (non-fasting) (06/19/2023 3:22 AM EDT) Glucose Lvl 101 65 - 199 mg/dL [facility] Comment:Diabetes: >=200 mg/d L plus symptoms BUN 24(H) 8 - 18 mg/dL [facility] Creatinine 1.04 0.70 - 1.20 mg/dL [facility] Sodium 137 135 - 145 mmol/L [facility] Potassium 3.6 3.5 - 5.0 mmol/L [facility] Comment: Please note: ??Patients with WBC >100,000 may have falsely elevated Potassium levels. ??For accurate Potassium quantification in these patients send serum separator tube (gold top) for subsequent determinations. ??Contact the Clinical Chemistry Laboratory if there are any questions. Chloride 100 98 - 107 mmol/L [facility] CO2 Not Perf 22 - 31 [facility] Comment:Add-on request. Samp le too old to perform test. Anion Gap Unable to Calculate 5 - 15 mmol/L [facility] Calcium 9.4 8.5 - 10.5 mg/dL [facility] Estimated GFR 64 >=60 mL/min/1 .73 m?? [facility] Comment: This patient's estimated GFR [...] Lab Eufemia Copeland MD CHEMISTRY ORDERABL ES [facility] [place] [address] * Differential, Automated (06/19/2023 3:22 AM EDT) Neutrophils % 54.0 % [facility] Neutr Abs (ANC) 5.08 1.70 - 6.10 x10(3)/mcL [facility] Lymphocytes % 30.7 % [facility] Lymphocytes Abs 2.9 0.9 - 3.2 x10(3)/[facility] Monocytes % 10.0 % [facility] Monocyte Abs 0.9 0.3 - 0.9 x10(3)/[facility] Eosinophils % 4.5 % [facility] Eosinophils Abs 0.4 0.0 - 0.4 x10(3)/[facility] Basophils % 0.6 % [facility] Basophils Abs 0.1 0.0 - 0.1 x10(3)/[facility] Immature Gran % 0.20 % [facility] Comment: Immature granulocytes(IG's)percentage and absolute count will include metamyelocytes, myelocytes, and promyelocytes. Blood smears from CBCs yielding IG's will be scanned manually for concordance. If this scan disagrees with the automated IG or if promyelocytes are noted, a manual differential will be performed. Shonda Gran Abs 0.02 0.00 - 0.04 x10(3)/[facility] Blood 06/19/2023 3:22 AM EDT 06/19/2023 3:47 AM EDT Narrative Resulting Agency Comment Spec In Lab Terrence Keating MD HEMATOLOGY ORDERABLE S [facility] [place] [address] * Hemogram (06/19/2023 3:22 AM EDT) WBC 9.4 4.0 - 9.5 x10(3)/[facility] RBC 4.48 4.00 - 5.21 x10(6)/[facility] Hemoglobin 13.9 11.7 - 15.5 g/dL [facility] Hematocrit 41.7 35.7 - 45.8 % [facility] MCV 93.1 82.6 - 94.4 fL [facility] MCH 31.0 27.1 - 32.[address] [facility] MCHC 33.3 31.7 - 35.0 g/dL [facility] Platelets 244 145 - 357 x10(3)/[facility] RDWSD 44.2 37.0 - 46.0 [facility] RDWCV 12.9 11.5 - 14.1 % [facility] MPV 10.9 7.6 - 12.9 [facility] nRBC % Auto 0.0 % [facility] nRBC Abs Auto 0.000 0.000 - 0.000 x10(3)/[facility] Blood 06/19/2023 3:22 AM EDT 06/19/2023 3:47 AM EDT Narrative Resulting Agency Comment Spec In Lab Terrence Keating MD HEMATOLOGY ORDERABLE S [facility] [place] [address] * Phosphorus (06/19/2023 3:22 AM EDT) Phosphorus 4.1 2.5 - 4.5 mg/dL [facility] Blood 06/19/2023 3:22 AM EDT 06/19/2023 3:47 AM EDT Narrative Resulting Agency Comment Spec In Lab Eufemia Copeland MD CHEMISTRY ORDERABL ES [facility] [place] [address] * Magnesium (06/19/2023 3:22 AM EDT) Magnesium 1.00 0.69 - 1.07 mmol/L [facility] Blood 06/19/2023 3:22 AM EDT 06/19/2023 3:47 AM EDT Narrative Resulting Agency Comment Spec In Lab Eufemia Copeland MD CHEMISTRY ORDERABL ES [facility] [place] [address] * (ABNORMAL) Basic Metabolic Panel (non-fasting) (06/18/2023 5:17 PM EDT) Glucose Lvl 115 65 - 199 mg/dL [facility] Comment:Diabetes: >=200 mg/d L plus symptoms BUN 22(H) 8 - 18 mg/dL [facility] Creatinine 1.12 0.70 - 1.20 mg/dL [facility] Sodium 137 135 - 145 mmol/L [facility] Potassium 4.2 3.5 - 5.0 mmol/L [facility] Comment: Please note: ??Patients with WBC >100,000 may have falsely elevated Potassium levels. ??For accurate Potassium quantification in these patients send serum separator tube (gold top) for subsequent determinations. ??Contact the Clinical Chemistry Laboratory if there are any questions. Chloride 101 98 - 107 mmol/L [facility] CO2 22 22 - 31 mmol/L [facility] Anion Gap 14 5 - 15 mmol/L [facility] Calcium 9.6 8.5 - 10.5 mg/dL [facility] Estimated GFR 58(L) >=60 mL/min/1. 73 m?? [facility] Comment: This patient's estimated GFR [...] Lab Eufemia Copeland MD CHEMISTRY ORDERABL ES [facility] [place] [address] * (ABNORMAL) Basic Metabolic Panel (non-fasting) (06/18/2023 4:19 AM EDT) Glucose Lvl 96 65 - 199 mg/dL [facility] Comment:Diabetes: >=200 mg/d L plus symptoms BUN 22(H) 8 - 18 mg/dL [facility] Creatinine 0.93 0.70 - 1.20 mg/dL [facility] Sodium 138 135 - 145 mmol/L [facility] Potassium 4.2 3.5 - 5.0 mmol/L [facility] Comment: Please note: ??Patients with WBC >100,000 may have falsely elevated Potassium levels. ??For accurate Potassium quantification in these patients send serum separator tube (gold top) for subsequent determinations. ??Contact the Clinical Chemistry Laboratory if there are any questions. Chloride 102 98 - 107 mmol/L [facility] CO2 Not Perf 22 - 31 [facility] Comment:Add-on request. Samp le too old to perform test. Anion Gap Unable to Calculate 5 - 15 mmol/L [facility] Calcium 9.5 8.5 - 10.5 mg/dL [facility] Estimated GFR 73 >=60 mL/min/1 .73 m?? [facility] Comment: This patient's estimated GFR [...] Lab Eufemia Copeland MD CHEMISTRY ORDERABL ES [facility] [place] [address] * Differential, Automated (06/18/2023 4:19 AM EDT) Neutrophils % 54.1 % [facility] Neutr Abs (ANC) 4.52 1.70 - 6.10 x10(3)/[facility] Lymphocytes % 31.0 % [facility] Lymphocytes Abs 2.6 0.9 - 3.2 x10(3)/[facility] Monocytes % 9.2 % [facility] Monocyte Abs 0.8 0.3 - 0.9 x10(3)/[facility] Eosinophils % 4.9 % [facility] Eosinophils Abs 0.4 0.0 - 0.4 x10(3)/[facility] Basophils % 0.6 % [facility] Basophils Abs 0.0 0.0 - 0.1 x10(3)/[facility] Immature Gran % 0.20 % [facility] Comment: Immature granulocytes(IG's)percentage and absolute count will include metamyelocytes, myelocytes, and promyelocytes. Blood smears from CBCs yielding IG's will be scanned manually for concordance. If this scan disagrees with the automated IG or if promyelocytes are noted, a manual differential will be performed. Shonda Gran Abs 0.02 0.00 - 0.04 x10(3)/[facility] Blood 06/18/2023 4:19 AM EDT 06/18/2023 4:40 AM EDT Narrative Resulting Agency Comment Spec In Lab Terrence Keating MD HEMATOLOGY ORDERABLE S [facility] [place] [address] * Hemogram (06/18/2023 4:19 AM EDT) WBC 8.4 4.0 - 9.5 x10(3)/[facility] RBC 4.70 4.00 - 5.21 x10(6)/[facility] Hemoglobin 14.5 11.7 - 15.5 g/dL [facility] Hematocrit 42.8 35.7 - 45.8 % [facility] MCV 91.1 82.6 - 94.4 [facility] MCH 30.9 27.1 - 32.[address] [facility] MCHC 33.9 31.7 - 35.0 g/dL [facility] Platelets 258 145 - 357 x10(3)/[facility] RDWSD 43.6 37.0 - 46.0 [facility] RDWCV 13.0 11.5 - 14.1 % [facility] MPV 10.7 7.6 - 12.9 [facility] nRBC % Auto 0.0 % [facility] nRBC Abs Auto 0.000 0.000 - 0.000 x10(3)/[facility] Blood 06/18/2023 4:19 AM EDT 06/18/2023 4:40 AM EDT Narrative Resulting Agency Comment Spec In Lab Terrence Keating MD HEMATOLOGY ORDERABLE S [facility] [place] [address] * Phosphorus (06/18/2023 4:19 AM EDT) Phosphorus 3.7 2.5 - 4.5 mg/dL [facility] Blood 06/18/2023 4:19 AM EDT 06/18/2023 4:40 AM EDT Narrative Resulting Agency Comment Spec In Lab Eufemia Copeland MD CHEMISTRY ORDERABL ES Performing Organization Address [facility] Co de Phone Number [facility] [place] [address] * Magnesium (06/18/2023 4:19 AM EDT) Magnesium 1.02 0.69 - 1.07 mmol/L [facility] Blood 06/18/2023 4:19 AM EDT 06/18/2023 4:40 AM EDT Narrative Resulting Agency Comment Spec In Lab Eufemia Copeland MD CHEMISTRY ORDERABL ES Performing Organization Address [facility] Co de Phone Number [facility] [place] [address] * Phosphorus (06/17/2023 2:26 PM EDT) Phosphorus 2.8 2.5 - 4.5 mg/dL [facility] Blood 06/17/2023 2:26 PM EDT 06/17/2023 2:36 PM EDT Narrative Resulting Agency Comment Spec In Lab Eufemia Copeland MD CHEMISTRY ORDERABL ES Performing Organization Address [facility]/ZIP Co de Phone Number [facility] [place] [address] * Magnesium (06/17/2023 2:26 PM EDT) Magnesium 1.01 0.69 - 1.07 mmol/L [facility] Blood 06/17/2023 2:26 PM EDT 06/17/2023 2:36 PM EDT Narrative Resulting Agency Comment Spec In Lab Eufemia Copeland MD CHEMISTRY ORDERABL ES [facility] [place] [address] * (ABNORMAL) Basic Metabolic Panel (non-fasting) (06/17/2023 2:26 PM EDT) Glucose Lvl 103 65 - 199 mg/dL [facility] Comment:Diabetes: >=200 mg/d L plus symptoms BUN 21(H) 8 - 18 mg/dL [facility] Creatinine 1.07 0.70 - 1.20 mg/dL [facility] Sodium 135 135 - 145 mmol/L [facility] Potassium 3.7 3.5 - 5.0 mmol/L [facility] Comment: Please note: ??Patients with WBC >100,000 may have falsely elevated Potassium levels. ??For accurate Potassium quantification in these patients send serum separator tube (gold top) for subsequent determinations. ??Contact the Clinical Chemistry Laboratory if there are any questions. Chloride 97(L) 98 - 107 mmol/L [facility] CO2 24 22 - 31 mmol/L [facility] Anion Gap 14 5 - 15 mmol/L [facility] Calcium 9.6 8.5 - 10.5 mg/dL [facility] Estimated GFR 62 >=60 mL/min/1. 73 m?? [facility] Comment: This patient's estimated GFR [...] Lab Eufemia Copeland MD CHEMISTRY ORDERABL ES [facility] [place] [address] * XR Abdomen Flat & Upright (06/17/2023 [...] who have questions please contact the health director of medicare that requested your imaging first. ? Narrative 06/17/2023 5:30 PM EDT EXAMINATION: XR ABDOMEN FLAT AND UPRIGHT CLINICAL HISTORY: patient with foul odor from [employer]. hx hysterectomy, LLQ tenderness, constipation TECHNIQUE: Supine [...] CLINICAL HISTORY: patient with foul odor from [place]. hx hysterectomy, LLQ tenderness, constipation TECHNIQUE: Supine [...] patients who have questions please contactthe health director of medicare that requested your imaging first. Eufemia Copeland MD IMG DX ORDERABLES * (ABNORMAL) Basic Metabolic Panel (non-fasting) (06/17/2023 5:01 AM EDT) Glucose Lvl 100 65 - 199 mg/dL [facility] Comment:Diabetes: >=200 mg/d L plus symptoms BUN 24(H) 8 - 18 mg/dL [facility] Creatinine 1.03 0.70 - 1.20 mg/dL [facility] Sodium 136 135 - 145 mmol/L [facility] Potassium Not Perf 3.5 - 5.0 [facility] Comment: Unable to quantitate due [...] questions. Chloride 100 98 - 107 mmol/L [facility] CO2 24 22 - 31 mmol/L [facility] Anion Gap 12 5 - 15 mmol/L [facility] Calcium 9.5 8.5 - 10.5 mg/dL [facility] Estimated GFR 65 >=60 mL/min/1. 73 m?? [facility] Comment: This patient's estimated GFR [...] In Lab Terrence Keating MD CHEMISTRY ORDERABLES [facility] [place] [address] * Differential, Automated (06/17/2023 1:11 AM EDT) Neutrophils % 54.5 % [facility] Neutr Abs (ANC) 5.20 1.70 - 6.10 x10(3)/[facility] Lymphocytes % 31.4 % [facility] Lymphocytes Abs 3.0 0.9 - 3.2 x10(3)/[facility] Monocytes % 9.8 % [facility] Monocyte Abs 0.9 0.3 - 0.9 x10(3)/[facility] Eosinophils % 3.4 % [facility] Eosinophils Abs 0.3 0.0 - 0.4 x10(3)/[facility] Basophils % 0.5 % [facility] Basophils Abs 0.0 0.0 - 0.1 x10(3)/[facility] Immature Gran % 0.40 % [facility] Comment: Immature granulocytes(IG's)percentage and absolute count will include metamyelocytes, myelocytes, and promyelocytes. Blood smears from CBCs yielding IG's will be scanned manually for concordance. If this scan disagrees with the automated IG or if promyelocytes are noted, a manual differential will be performed. Shonda Gran Abs 0.04 0.00 - 0.04 x10(3)/[facility] Blood 06/17/2023 1:11 AM EDT 06/17/2023 1:16 AM EDT Narrative Resulting Agency Comment Spec In Lab Terrence Keating MD HEMATOLOGY ORDERABLE S [facility] [place] [address] * Hemogram (06/17/2023 1:11 AM EDT) WBC 9.5 4.0 - 9.5 x10(3)/[facility] RBC 4.60 4.00 - 5.21 x10(6)/[facility] Hemoglobin 14.2 11.7 - 15.5 g/dL [facility] Hematocrit 43.0 35.7 - 45.8 % [facility] MCV 93.5 82.6 - 94.4 [facility] MCH 30.9 27.1 - 32.[address] [facility] MCHC 33.0 31.7 - 35.0 g/dL [facility] Platelets 256 145 - 357 x10(3)/[facility] RDWSD 45.0 37.0 - 46.0 [facility] RDWCV 13.2 11.5 - 14.1 % [facility] MPV 10.9 7.6 - 12.9 [facility] nRBC % Auto 0.0 % [facility] nRBC Abs Auto 0.000 0.000 - 0.000 x10(3)/[facility] Blood 06/17/2023 1:11 AM EDT 06/17/2023 1:16 AM EDT Narrative Resulting Agency Comment Spec In Lab Terrence Keating MD HEMATOLOGY ORDERABLE S [facility] [place] [address] * Magnesium (06/17/2023 1:11 AM EDT) Pathologist [facility] Magnesium 0.96 0.69 - 1.07 mmol/L [facility] Blood 06/17/2023 1:11 AM EDT 06/17/2023 1:16 AM EDT Narrative Resulting Agency Comment Spec In Lab Eufemia Copeland MD CHEMISTRY ORDERABL ES Performing Organization Address [facility] Co de Phone Number [facility] [place] [address] * (ABNORMAL) Basic Metabolic Panel (non-fasting) (06/17/2023 1:11 AM EDT) [facility] Glucose Lvl 102 65 - 199 mg/dL [facility] Comment:Diabetes: >=200 mg/d L plus symptoms BUN 24(H) 8 - 18 mg/dL [facility] Creatinine 1.08 0.70 - 1.20 mg/dL [facility] Sodium 137 135 - 145 mmol/L [facility] Potassium 4.1 3.5 - 5.0 mmol/L [facility] Comment: Please note: ??Patients with WBC >100,000 may have falsely elevated Potassium levels. ??For accurate Potassium quantification in these patients send serum separator tube (gold top) for subsequent determinations. ??Contact the Clinical Chemistry Laboratory if there are any questions. Chloride 100 98 - 107 mmol/L [facility] CO2 24 22 - 31 mmol/L [facility] Anion Gap 13 5 - 15 mmol/L [facility] Calcium 9.2 8.5 - 10.5 mg/dL [facility] Estimated GFR 61 >=60 mL/min/1. 73 m?? [facility] Comment: This patient's estimated GFR [...] In Lab Terrence Keating MD CHEMISTRY ORDERABLES [facility] [place] [address] * (ABNORMAL) Basic Metabolic Panel (non-fasting) (06/16/2023 8:28 PM EDT) Glucose Lvl 111 65 - 199 mg/dL [facility] Comment:Diabetes: >=200 mg/d L plus symptoms BUN 23(H) 8 - 18 mg/dL [facility] Creatinine 1.21(H) 0.70 - 1.20 mg/dL [facility] Sodium 137 135 - 145 mmol/L [facility] Potassium 4.2 3.5 - 5.0 mmol/L [facility] Comment: Please note: ??Patients with WBC >100,000 may have falsely elevated Potassium levels. ??For accurate Potassium quantification in these patients send serum separator tube (gold top) for subsequent determinations. ??Contact the Clinical Chemistry Laboratory if there are any questions. Chloride 99 98 - 107 mmol/L [facility] CO2 26 22 - 31 mmol/L [facility] Anion Gap 12 5 - 15 mmol/L [facility] Calcium 9.3 8.5 - 10.5 mg/dL [facility] Estimated GFR 53(L) >=60 mL/min/1. 73 m?? [facility] Comment: This patient's estimated GFR [...] Lab Eufemia Copeland MD CHEMISTRY ORDERABL ES [facility] [place] [address] * (ABNORMAL) Basic Metabolic Panel (non-fasting) (06/16/2023 2:29 PM EDT) Glucose Lvl 175 65 - 199 mg/dL [facility] Comment:Diabetes: >=200 mg/d L plus symptoms BUN 25(H) 8 - 18 mg/dL [facility] Creatinine 1.27(H) 0.70 - 1.20 mg/dL [facility] Sodium 135 135 - 145 mmol/L [facility] Potassium 3.9 3.5 - 5.0 mmol/L [facility] Comment: result rechecked-EL Please note: ??Patients with WBC >100,000 may have falsely elevated Potassium levels. ??For accurate Potassium quantification in these patients send serum separator tube (gold top) for subsequent determinations. ??Contact the Clinical Chemistry Laboratory if there are any questions. Chloride 96(L) 98 - 107 mmol/L [facility] CO2 26 22 - 31 mmol/L [facility] Anion Gap 13 5 - 15 mmol/L [facility] Calcium 9.3 8.5 - 10.5 mg/dL [facility] Estimated GFR 50(L) >=60 mL/min/1. 73 m?? [facility] Comment: This patient's estimated GFR [...] Lab Eufemia Copeland MD CHEMISTRY ORDERABL ES [facility] [place] [id number] * (ABNORMAL) Basic Metabolic Panel (non-fasting) (06/16/2023 9:01 AM EDT) Glucose Lvl 148 65 - 199 mg/dL [facility] Comment:Diabetes: >=200 mg/d L plus symptoms BUN 27(H) 8 - 18 mg/dL [facility] Creatinine 1.27(H) 0.70 - 1.20 mg/dL [facility] Sodium 136 135 - 145 mmol/L [facility] Potassium 2.9(Criti edy) 3.5 - 5.0 mmol/L [facility] Comment: called by tmp /read back by (Malia Mcintyre)/ 06/16/23 @279 Please note: ??Patients with WBC >100,000 may have falsely elevated Potassium levels. ??For accurate Potassium quantification in these patients send serum separator tube (gold top) for subsequent determinations. ??Contact the Clinical Chemistry Laboratory if there are any questions. Chloride 91(L) 98 - 107 mmol/L [facility] CO2 32(H) 22 - 31 mmol/L [facility] Anion Gap 13 5 - 15 mmol/L [facility] Calcium 9.7 8.5 - 10.5 mg/dL [facility] Estimated GFR 50(L) >=60 mL/min/1. 73 m?? [facility] Comment: This patient's estimated GFR [...] de Phone Number [facility] [place] [address] * (ABNORMAL) Magnesium (06/16/2023 3:30 AM EDT) Magnesium 1.09(H) 0.69 - 1.07 mmol/L [facility] Blood Venous Draw / Unknown 06/16/2023 3:30 AM EDT 06/16/2023 3:38 AM EDT Narrative Resulting Agency Comment Spec In Lab Eufemia Copeland MD CHEMISTRY ORDERABL ES [facility] [place] [address] * (ABNORMAL) Differential, Automated (06/16/2023 3:30 AM EDT) Neutrophils % 50.4 % [facility] Neutr Abs (ANC) 4.15 1.70 - 6.10 x10(3)/[facility] Lymphocytes % 33.7 % [facility] Lymphocytes Abs 2.8 0.9 - 3.2 x10(3)/[facility] Monocytes % 11.8 % [facility] Monocyte Abs 1.0(H) 0.3 - 0.9 x10(3)/[facility] Eosinophils % 3.3 % [facility] Eosinophils Abs 0.3 0.0 - 0.4 x10(3)/[facility] Basophils % 0.6 % [facility] Basophils Abs 0.0 0.0 - 0.1 x10(3)/[facility] Immature Gran % 0.20 % [facility] Comment: Immature granulocytes(IG's)percentage and absolute count will include metamyelocytes, myelocytes, and promyelocytes. Blood smears from CBCs yielding IG's will be scanned manually for concordance. If this scan disagrees with the automated IG or if promyelocytes are noted, a manual differential will be performed. Shonda Gran Abs 0.02 0.00 - 0.04 x10(3)/[facility] Blood 06/16/2023 3:30 AM EDT 06/16/2023 3:37 AM EDT Narrative Resulting Agency Comment Spec In Lab Terrence Keating MD HEMATOLOGY ORDERABLE S [facility] [place] [address] * Hemogram (06/16/2023 3:30 AM EDT) WBC 8.2 4.0 - 9.5 x10(3)/[facility] RBC 4.69 4.00 - 5.21 x10(6)/[facility] Hemoglobin 14.5 11.7 - 15.5 g/dL [facility] Hematocrit 42.7 35.7 - 45.8 % [facility] MCV 91.0 82.6 - 94.[address] [facility] MCH 30.9 27.1 - 32.[address] [facility] MCHC 34.0 31.7 - 35.0 g/dL [facility] Platelets 260 145 - 357 x10(3)/[facility] LABORATORY RDWSD 43.5 37.0 - 46.[address] [facility] RDWCV 13.0 11.5 - 14.1 % [facility] MPV 11.1 7.6 - 12.9 [facility] LABORATORY nRBC % Auto 0.0 % [facility] nRBC Abs Auto 0.000 0.000 - 0.000 x10(3)/[facility] LABORATORY Blood 06/16/2023 3:30 AM EDT 06/16/2023 3:37 AM EDT Narrative Resulting Agency Comment Spec In Lab Terrence Keating MD HEMATOLOGY ORDERABLE S [facility] [place] [address] * (ABNORMAL) Basic Metabolic Panel (non-fasting) (06/16/2023 3:30 AM EDT) Glucose Lvl 110 65 - 199 mg/dL [facility] Comment:Diabetes: >=200 mg/d L plus symptoms BUN 28(H) 8 - 18 mg/dL [facility] Creatinine 1.20 0.70 - 1.20 mg/dL [facility] LABORATORY Sodium 135 135 - 145 mmol/L [facility] Potassium 2.7(Criti edy) 3.5 - 5.0 mmol/L [facility] Comment: called by WALESKA /read back by Jolly Friedman / 06/16/23 0403 Please note: ??Patients with WBC >100,000 may have falsely elevated Potassium levels. ??For accurate Potassium quantification in these patients send serum separator tube (gold top) for subsequent determinations. ??Contact the Clinical Chemistry Laboratory if there are any questions. Chloride 90(L) 98 - 107 mmol/L [facility] CO2 33(H) 22 - 31 mmol/L [facility] Anion Gap 12 5 - 15 mmol/L [facility] Calcium 9.2 8.5 - 10.5 mg/dL [facility] Estimated GFR 54(L) >=60 mL/min/1. 73 m?? [facility] Comment: This patient's estimated GFR [...] Lab Eufemia Copeland MD CHEMISTRY ORDERABL ES [facility] [place] [address] * Heparin (unfractionated) Level (06/16/2023 3:30 AM EDT) Heparin UFH Level 0.64 IU/mL [facility] Comment: Heparin (anti-Xa) levels should [...] Lab Terrence Keating MD HEMATOLOGY ORDERABLE S [facility] [place] [address] * Lipid Panel (Reflex Direct LDL) (06/16/2023 3:30 AM EDT) Chol, Total 190 mg/dL [facility] Comment: Desirable: ? <200 mg/dL Borderline High: 200-239 mg/dL Higher: ?>zm=100 mg/dL Triglycerides 126 mg/dL [facility] Comment: Normal: ?<150 mg/dL Borderline High: 150-199 mg/dL High: ?200-499 mg/dL Very High: ? >yi=125 mg/dL HDL 50 mg/dL [facility] Comment: Females: High Risk: <50 mg/dL Males: High Risk: <40 mg/dL LDL Cholesterol 115 mg/dL [facility] Comment: Desirable: ? <100 mg/dL Above Desirable: 100-129 mg/dL Borderline High: 130-159 mg/dL High: ?160-189 mg/dL Very High: ? >fb=440 mg/dL Lipid Interpretation See Note [facility] Comment: It is important to [...] ACC/AHA Guidelines (most recently Ysabel et al. [facility] 12/09/21): For individuals with atherosclerotic cardiovascular disease (ASCVD)or LDL >vt=273 mg/dL, use a high-intensity statin (40-80 mg [...] In Lab Terrence Keating MD CHEMISTRY ORDERABLES [facility] [place] [address] * (ABNORMAL) Basic Metabolic Panel (non-fasting) (06/15/2023 9:33 PM EDT) Glucose Lvl 120 65 - 199 mg/dL [facility] Comment:Diabetes: >=200 mg/d L plus symptoms BUN 29(H) 8 - 18 mg/dL [facility] Creatinine 1.38(H) 0.70 - 1.20 mg/dL [facility] Sodium 135 135 - 145 mmol/L [facility] Potassium 3.1(L) 3.5 - 5.0 mmol/L [facility] Comment: Please note: ??Patients with WBC >100,000 may have falsely elevated Potassium levels. ??For accurate Potassium quantification in these patients send serum separator tube (gold top) for subsequent determinations. ??Contact the Clinical Chemistry Laboratory if there are any questions. Chloride 92(L) 98 - 107 mmol/L [facility] CO2 31 22 - 31 mmol/L [facility] Anion Gap 12 5 - 15 mmol/L [facility] Calcium 9.4 8.5 - 10.5 mg/dL [facility] Estimated GFR 45(L) >=60 mL/min/1. 73 m?? [facility] Comment: This patient's estimated GFR [...] MD CHEMISTRY ORDERABL ES Performing Organization Address [facility]/ZIP Co de Phone Number [facility] [place] [address] * Heparin (unfractionated) Level (06/15/2023 9:33 PM EDT) Heparin UFH Level 0.63 IU/mL [facility] Comment: Heparin (anti-Xa) levels should [...] MD HEMATOLOGY ORDERABLE S Performing Organization Address [facility]/ZIP Co de Phone Number [facility] [place] [address] * (ABNORMAL) Magnesium (06/15/2023 5:47 PM EDT) Magnesium 1.10(H) 0.69 - 1.07 mmol/L [facility] Blood Venous Draw / Unknown 06/15/2023 5:47 PM EDT 06/15/2023 6:10 PM EDT Narrative Resulting Agency Comment Spec In Lab Terrence Keating MD CHEMISTRY ORDERABLES Performing Organization Address City/[facility]/ZIP Co de Phone Number [facility] [place] [address] * (ABNORMAL) Basic Metabolic Panel (non-fasting) (06/15/2023 5:47 PM EDT) Glucose Lvl 147 65 - 199 mg/dL [facility] Comment:Diabetes: >=200 mg/d L plus symptoms BUN 29(H) 8 - 18 mg/dL [facility] Creatinine 1.20 0.70 - 1.20 mg/dL [facility] Sodium 134(L) 135 - 145 mmol/L [facility] Potassium 2.9(Criti edy) 3.5 - 5.0 mmol/L [facility] Comment: Called by: dm, Read back by: qamar ren, Date/Time:06/15/23 19:11. Please note: ??Patients with WBC >100,000 may have falsely elevated Potassium levels. ??For accurate Potassium quantification in these patients send serum separator tube (gold top) for subsequent determinations. ??Contact the Clinical Chemistry Laboratory if there are any questions. Chloride 89(L) 98 - 107 mmol/L [facility] CO2 29 22 - 31 mmol/L [facility] Anion Gap 16(H) 5 - 15 mmol/L [facility] Calcium 9.1 8.5 - 10.5 mg/dL [facility] Estimated GFR 54(L) >=60 mL/min/1. 73 m?? [facility] Comment: This patient's estimated GFR [...] Lab Eufemia Copeland MD CHEMISTRY ORDERABL ES [facility] [place] [address] * Rapid Drug Screen w/o Confirmation, Urine (06/15/2023 4:46 PM EDT) U Barbiturates Screen None Detected None Detected [facility] Comment: The barbiturate screen detects [...] U Benzodiazepines Screen None Detected None Detected [facility] Comment: The benzodiazepines screen detects [...] U Cocaine Screen None Detected None Detected [facility] Comment: The cocaine metabolites screen detects benzoylecgonine (Cocaine Metabolite) at concentrations >150 ng/mL. A ? Presumptive Positive? result indicates that the screening result was positive but has not yet been confirmed by a highly-specific method. As with any screen, occasional false positive results from cross-reacting substances may occur. Not for Medico-Legal Purposes. U Methadone Metabolites Screen None Detected None Detected [facility] Comment: The methadone metabolite screen detects EDDP (major methadone metabolite) at concentrations >100 ng/mL. A ? Presumptive Positive? result indicates that the screening result was positive but has not yet been confirmed by a highly-specific method. As with any screen, occasional false positive results from cross-reacting substances may occur. Not for Medico-Legal Purposes. U Opiate Screen None Detected None Detected [facility] Comment: The opiates screen detects [...] U Cannabinoid Screen None Detected None Detected [facility] Comment: The marijuana metabolites screen detects the THC metabolite (54-kam-4-carboxy-delta 9-THC) at concentrations >20 ng/mL. A ? Presumptive Positive? result indicates that the screening result was positive but has not yet been confirmed by a highly-specific method. As with any screen, occasional false positive results from cross-reacting substances may occur. Not for Medico-Legal Purposes. U Oxycodone Screen None Detected None Detected [facility] Comment: The oxycodone screen detects oxycodone and oxymorphone at concentrations >100 ng/mL. A ? Presumptive Positive? result indicates that the screening result was positive but has not yet been confirmed by a highly-specific method. As with any screen, occasional false positive results from cross-reacting substances may occur. Not for Medico-Legal Purposes. U Buprenorphine Screen None Detected None Detected [facility] Comment: The buprenorphine screen detects [...] characteristics of this test were determined by [facility] in accordance with CLIA requirements. This laboratory is qualified under CLIA to perform high-complexity testing. U Fentanyl Screen None Detected None Detected [facility] Comment: The fentanyl screen detects [...] characteristics of this test were determined by [facility] in accordance with CLIA requirements. This laboratory is qualified under CLIA to perform high-complexity testing. U Tricyclics Screen None Detected None Detected [facility] Comment: The tricyclics screen detects [...] characteristics of this test were determined by [facility] in accordance with CLIA requirements. This laboratory is qualified under CLIA to perform high-complexity testing. U Ethanol Screen None Detected None Detected [facility] Comment:This urine ethanol a ssay detects ethanol at concentrations >/= 100 mg/L. U Amphetamines Screen None Detected None Detected [facility] Comment: The amphetamine screen detects d-amphetamine and d-methamphetamine at concentrations >300 ng/mL. A ? Presumptive Positive? result indicates that the screening result was positive but has not yet been confirmed by a highly-specific method. As with any screen, occasional false positive results from cross-reacting substances may occur. Not for Medico-Legal Purposes. U Creat TEE 39 >=20 mg/dL [facility] U Chromate TEE <2.0 <=49.9 mg/L [facility] U Nitrite TEE <50 <=499 mg/L [facility] U Oxidant TEE 12 <=199 mg/L [facility] U pH TEE 5.4 3.0 - 10.9 [facility] U Adulterants Screen None Detected None Detected [facility] Comment:No adulteration of t his urine sample was detected. Urine 06/15/2023 4:46 PM EDT 06/15/2023 5:30 PM EDT Narrative Resulting Agency Comment Spec In Lab Eufemia Copeland MD CHEMISTRY ORDERABL ES Performing Organization Address [facility] Co de Phone Number [facility] [place] [address] * Rapid Drug Screen, Urine (TEE Request) (06/15/2023 4:46 PM EDT) TEE Conf Requested No [facility] TEE Requested See Comment [facility] Comment:Refer to Rapid Drug Screen w/o Confirmation, Urine for results. Urine 06/15/2023 4:46 PM EDT 06/15/2023 5:30 PM EDT Narrative Resulting Agency Comment Spec In Lab Eufemia Copeland MD URINE ORDERABLES Performing Organization Address [facility] de Phone Number [facility] [place] [address] * (ABNORMAL) Basic Metabolic Panel (non-fasting) (06/15/2023 2:29 PM EDT) [facility] Glucose Lvl 141 65 - 199 mg/dL [facility] Comment:Diabetes: >=200 mg/d L plus symptoms BUN 31(H) 8 - 18 mg/dL [facility] Creatinine 1.21(H) 0.70 - 1.20 mg/dL [facility] Sodium 132(L) 135 - 145 mmol/L [facility] Potassium 3.0(Criti edy) 3.5 - 5.0 mmol/L [facility] Comment: Called by: dm, Read back by: qamar ren, Date/Time:06/15/23 15:18. Please note: ??Patients with WBC >100,000 may have falsely elevated Potassium levels. ??For accurate Potassium quantification in these patients send serum separator tube (gold top) for subsequent determinations. ??Contact the Clinical Chemistry Laboratory if there are any questions. Chloride 89(L) 98 - 107 mmol/L [facility] CO2 32(H) 22 - 31 mmol/L [facility] Anion Gap 11 5 - 15 mmol/L [facility] Calcium 9.6 8.5 - 10.5 mg/dL [facility] Estimated GFR 53(L) >=60 mL/min/1. 73 m?? [facility] Comment: This patient's estimated GFR [...] Lab Eufemia Copeland MD CHEMISTRY ORDERABL ES [facility] [place] [address] * Heparin (unfractionated) Level (06/15/2023 2:29 PM EDT) Heparin UFH Level 0.93 IU/mL [facility] Comment: Heparin (anti-Xa) levels should [...] MD HEMATOLOGY ORDERABLE S Performing Organization Address [facility] Co de Phone Number [facility] [place] [address] * EKG 12 Lead (06/15/2023 10:50 AM EDT) Ventricular rate 55 BPM MUSE SYSTEM Atrial Rate 55 BPM MUSE SYSTEM P-R Interval 184 ms MUSE SYSTEM QRS Duration 96 ms MUSE SYSTEM Q-T Interval 590 ms MUSE SYSTEM QTC Calculated (Bezet) 565 ms MUSE SYSTEM Calculated P [place] 54 degrees MUSE SYSTEM Calculated R [place] 54 degrees MUSE SYSTEM Calculated T [place] 13 degrees MUSE SYSTEM INTERPRETATION Sinus bradycardia with sinus arrhythmia Marked ST abnormality, possible inferior subendocardial injury Long QT interval Abnormal ECG When compared with ECG of 15-JUN-2023 02:17, Nonspecific T wave abnormality has replaced inverted T waves in Lateral leads Confirmed by Kai Haider ([id number]) on 06/16/2023 3:52:04 PM MUSE SYSTEM 06/15/2023 10:5 0 AM EDT 06/16/2023 3:52 PM EDT Terrence Keating MD ECG ORDERABLES Performing Organization Address [facility] de Phone Number MUSE SYSTEM * (ABNORMAL) Basic Metabolic Panel (non-fasting) (06/15/2023 8:18 AM EDT) Glucose Lvl 113 65 - 199 mg/dL [facility] Comment:Diabetes: >=200 mg/d L plus symptoms BUN 29(H) 8 - 18 mg/dL [facility] Creatinine 1.22(H) 0.70 - 1.20 mg/dL [facility] Sodium 134(L) 135 - 145 mmol/L [facility] Potassium 2.5(Criti edy) 3.5 - 5.0 mmol/L [facility] Comment: Called by: cheryl, Read back by: eamon mckeon, Date/Time:06/15/23 09:34. Please note: ??Patients with WBC >100,000 may have falsely elevated Potassium levels. ??For accurate Potassium quantification in these patients send serum separator tube (gold top) for subsequent determinations. ??Contact the Clinical Chemistry Laboratory if there are any questions. Chloride 89(L) 98 - 107 mmol/L [facility] CO2 30 22 - 31 mmol/L [facility] Anion Gap 15 5 - 15 mmol/L [facility] Calcium 10.0 8.5 - 10.5 mg/dL [facility] Estimated GFR 53(L) >=60 mL/min/1. 73 m?? [facility] Comment: This patient's estimated GFR [...] Lab Eufemia Copeland MD CHEMISTRY ORDERABL ES [facility] [place] [address] * Heparin (unfractionated) Level (06/15/2023 8:18 AM EDT) Heparin UFH Level 0.70 IU/mL [facility] Comment: Heparin (anti-Xa) levels should [...] Lab Terrence Keating MD HEMATOLOGY ORDERABLE S [facility] [place] [address] * (ABNORMAL) Troponin (06/15/2023 8:18 AM EDT) Troponin-T HS 33(H) <=14 ng/L [facility] Comment: This patient's troponin T [...] [facility] Laboratory Test Catalog Reference: Fourth [place] Definition of Myocardial Infarction. Journal of the [employer] 2018;72:3982-2762 Blood 06/15/2023 8:18 AM EDT 06/15/2023 8:34 AM EDT Narrative Resulting Agency Comment Spec In Lab Terrence Keating MD CHEMISTRY ORDERABLES [facility] [place] [address] * Differential, Automated (06/15/2023 4:28 AM EDT) Neutrophils % 48.0 % [facility] Neutr Abs (ANC) 3.20 1.70 - 6.10 x10(3)/[facility] Lymphocytes % 35.8 % [facility] Lymphocytes Abs 2.4 0.9 - 3.2 x10(3)/[facility] Monocytes % 11.4 % [facility] Monocyte Abs 0.8 0.3 - 0.9 x10(3)/[facility] Eosinophils % 3.7 % [facility] Eosinophils Abs 0.2 0.0 - 0.4 x10(3)/[facility] Basophils % 1.0 % [facility] Basophils Abs 0.1 0.0 - 0.1 x10(3)/[facility] Immature Gran % 0.10 % [facility] Comment: Immature granulocytes(IG's)percentage and absolute count will include metamyelocytes, myelocytes, and promyelocytes. Blood smears from CBCs yielding IG's will be scanned manually for concordance. If this scan disagrees with the automated IG or if promyelocytes are noted, a manual differential will be performed. Shonda Gran Abs 0.01 0.00 - 0.04 x10(3)/[facility] Blood 06/15/2023 4:28 AM EDT 06/15/2023 4:37 AM EDT Narrative Resulting Agency Comment Spec In Lab Terrence Keating MD HEMATOLOGY ORDERABLE S [facility] [place] [address] * (ABNORMAL) Hemogram (06/15/2023 4:28 AM EDT) [facility] WBC 6.7 4.0 - 9.5 x10(3)/[facility] RBC 5.09 4.00 - 5.21 x10(6)/[facility] Hemoglobin 16.1(H) 11.7 - 15.5 g/dL [facility] Hematocrit 48.2(H) 35.7 - 45.8 % [facility] MCV 94.7(H) 82.6 - 94.4 [facility] MCH 31.6 27.1 - 32.[address] [facility] MCHC 33.4 31.7 - 35.0 g/dL [facility] Platelets 253 145 - 357 x10(3)/[facility] RDWSD 45.5 37.0 - 46.0 [facility] RDWCV 13.0 11.5 - 14.1 % [facility] MPV 10.6 7.6 - 12.9 [facility] nRBC % Auto 0.0 % [facility] nRBC Abs Auto 0.000 0.000 - 0.000 x10(3)/[facility] Blood 06/15/2023 4:28 AM EDT 06/15/2023 4:37 AM EDT Narrative Resulting Agency Comment Spec In Lab Terrence Keating MD HEMATOLOGY ORDERABLE S [facility] [place] [address] * (ABNORMAL) Troponin (06/15/2023 4:28 AM EDT) Troponin-T HS 34(H) <=14 ng/L [facility] Comment: This patient's troponin T [...] [facility] Laboratory Test Catalog Reference: Fourth [place] Definition of Myocardial Infarction. Journal of the [employer] 2018;72:4953-6511 Blood 06/15/2023 4:28 AM EDT 06/15/2023 4:37 AM EDT Narrative Resulting Agency Comment Spec In Lab Terrence Keating MD CHEMISTRY ORDERABLES Performing Organization Address City/State/[facility] Co de Phone Number [facility] [place] [address] * (ABNORMAL) Prothrombin Time (06/15/2023 4:28 AM EDT) PT 12.7(H) 9.4 - 12.[address] [facility] INR 1.1 [facility] Comment: An INR <2.0 indicates [...] MD HEMATOLOGY ORDERABLE S Performing Organization Address [facility] Co de Phone Number [facility] [place] [address] * (ABNORMAL) Hepatic Function Panel (06/15/2023 4:28 AM EDT) Total Protein 7.5 6.1 - 8.0 g/dL [facility] Albumin 4.3 3.2 - 5.2 g/dL [facility] AST 32(H) 0 - 30 unit/L [facility] ALT 26 0 - 30 unit/L [facility] Alk Phos 70 35 - 105 unit/L [facility] Total Bilirubin 0.8 0.2 - 1.3 mg/dL [facility] Bili, Direct 0.1 0.0 - 0.3 mg/dL [facility] Blood 06/15/2023 4:28 AM EDT 06/15/2023 4:37 AM EDT Narrative Resulting Agency Comment Spec In Lab Terrence Keating MD CHEMISTRY ORDERABLES Performing Organization Address [facility] Co de Phone Number [facility] [place] [address] * (ABNORMAL) pro-Brain Natriuretic Peptide (06/15/2023 4:28 AM EDT) ProBNP 1,953(H) <=124 pg/mL [facility] Blood 06/15/2023 4:28 AM EDT 06/15/2023 4:37 AM EDT Narrative Resulting Agency Comment Spec In Lab Terrence Keating MD CHEMISTRY ORDERABLES Performing Organization Address [facility] de Phone Number [facility] [place] [address] * TSH (06/15/2023 4:28 AM EDT) TSH 2.98 0.27 - 4.20 mcIU/mL [facility] Comment: Reference Interval (mcIU/mL): Females: ??First Trimester: 0.23-3.88 ??Second Trimester: 0.22-3.90 ??Third Trimester: 0.44-4.66 Blood 06/15/2023 4:28 AM EDT 06/15/2023 4:37 AM EDT Narrative Resulting Agency Comment Spec In Lab Terrence Keating MD CHEMISTRY ORDERABLES Performing Organization Address [facility] de Phone Number [facility] [place] [address] * Phosphorus (06/15/2023 4:28 AM EDT) Phosphorus 4.4 2.5 - 4.5 mg/dL [facility] Blood 06/15/2023 4:28 AM EDT 06/15/2023 4:37 AM EDT Narrative Resulting Agency Comment Spec In Lab Terrence Keating MD CHEMISTRY ORDERABLES Performing Organization Address [facility] Co de Phone Number [facility] [place] [address] * (ABNORMAL) Magnesium (06/15/2023 4:28 AM EDT) Magnesium 1.22(H) 0.69 - 1.07 mmol/L [facility] Blood 06/15/2023 4:28 AM EDT 06/15/2023 4:37 AM EDT Narrative Resulting Agency Comment Spec In Lab Terrence Keating MD CHEMISTRY ORDERABLES Performing Organization Address City/[facility] Co de Phone Number [facility] [place] [address] * Calcium (06/15/2023 4:28 AM EDT) Calcium 9.7 8.5 - 10.5 mg/dL [facility] Blood 06/15/2023 4:28 AM EDT 06/15/2023 4:37 AM EDT Narrative Resulting Agency Comment Spec In Lab Terrence Keating MD CHEMISTRY ORDERABLES [facility] [place] [address] * (ABNORMAL) Basic Metabolic Panel (non-fasting) (06/15/2023 4:28 AM EDT) Pathologist [facility] Glucose Lvl 112 65 - 199 mg/dL [facility] Comment:Diabetes: >=200 mg/d L plus symptoms BUN 30(H) 8 - 18 mg/dL [facility] Creatinine 1.24(H) 0.70 - 1.20 mg/dL [facility] Sodium 134(L) 135 - 145 mmol/L [facility] Potassium 2.7(Criti edy) 3.5 - 5.0 mmol/L [facility] Comment: Called by: , Read back by: Olive Hernandez, Date/Time:06/15/23 05:16. Please note: ??Patients with WBC >100,000 may have falsely elevated Potassium levels. ??For accurate Potassium quantification in these patients send serum separator tube (gold top) for subsequent determinations. ??Contact the Clinical Chemistry Laboratory if there are any questions. Chloride 90(L) 98 - 107 mmol/L [facility] CO2 28 22 - 31 mmol/L [facility] Anion Gap 16(H) 5 - 15 mmol/L [facility] Calcium 9.7 8.5 - 10.5 mg/dL [facility] Estimated GFR 52(L) >=60 mL/min/1. 73 m?? [facility] Comment: This patient's estimated GFR [...] Keating MD CHEMISTRY ORDERABLES Performing Organization Address City/[facility] Co de Phone Number [facility] [place] [address] * EKG 12 Lead (06/15/2023 2:17 AM EDT) Ventricular rate 57 BPM MUSE SYSTEM Atrial Rate 57 BPM MUSE SYSTEM P-R Interval 200 ms MUSE SYSTEM QRS Duration 94 ms MUSE SYSTEM Q-T Interval 606 ms MUSE SYSTEM QTC Calculated (Bezet) 591 ms MUSE SYSTEM Calculated P [place] 66 degrees MUSE SYSTEM Calculated R [place] 74 degrees MUSE SYSTEM Calculated T [place] -33 degrees MUSE SYSTEM INTERPRETATION Sinus bradycardia Possible Lateral infarct (cited on or before 17-APR-2023) Marked ST abnormality, possible inferior subendocardial injury Prolonged QTc Abnormal ECG When compared with ECG of 20-APR-2023 10:23, Nonspecific T wave changes QT has lengthened Confirmed by fellow MD Hansa, Sindhu ([id number]) on 06/15/2023 4:36:19 PM Confirmed by MD Angelo Danette ([id number]) on 06/15/2023 4:51:21 PM MUSE SYSTEM 06/15/2023 2:17 AM EDT 06/15/2023 4:51 PM EDT Terrence Keating MD ECG ORDERABLES [facility] documented in this encounter Visit Diagnoses [...] area)1548 ([facility] Unhold - Provider: Admin Adt) 0855 (Given - Provider: Heidy Paris RN) 0930 (Given - Provider: Heidy Paris RN) DULoxetine DR (Cymbalta) capsule 60 mg 60 mg, Oral, DAILY, First dose on Wed06/15/23 at 0900, Until Discontinued, Routine 0853 (Given - Provider: Heidy Paris RN)1332 (MA[facility] Hold - Provider: Admin Adt - Reason: Transfer to a Procedural area)1548 ([facility] Unhold - Provider: Admin Adt) 0856 (Given - Provider: Heidy Paris RN) 0931 (Given - Provider: Heidy Paris RN) gabapentin (Neurontin) capsule 600 mg 600 mg, Oral, NIGHTLY, First dose on Wed06/15/23 at 0200, Until Discontinued, Routine 1332 ([facility] Hold - Provider: Admin Adt - Reason: Transfer to a Procedural area)1548 ([facility] Unhold - Provider: Admin Adt)7 (Given - Provider: Lorena Torres, ERWIN) 2115 [...] Heidy Paris RN - Reason: Patient/family refused)1332 ([facility] Hold - Provider: Admin Adt - Reason: Transfer to a Procedural area)1548 ([facility] Unhold - Provider: Admin Adt) 1000 (Not [...] 211 (Given - Provider: Machelle Busch RN) metoprolol [...] area)1548 ([facility] Unhold - Provider: Admin Adt) 0900 (Not [...] Heidy Paris RN - Reason: Patient/family refused)1332 ([facility] Hold - Provider: Admin Adt - Reason: Transfer to a Procedural area)1548 ([facility] Unhold - Provider: Admin Adt) 0900 (Not [...] 0853 (Given - Provider: Heidy Paris RN)1332 ([facility] Hold - Provider: Admin Adt - Reason: Transfer to a Procedural area)1548 ([facility] Unhold - Provider: Admin Adt)2136 (Given - Provider: Lorena Torres RN) 0856 (Given - Provider: Heidy Paris RN)2117 (Given - Provider: Machelle Busch RN) 0938 (Given - Provider: Heidy Paris, ERWIN) rimegepant (Nurtec ODT) Tablet, Rapid Dissolve 75 mg 75 mg, Oral, EVERY 48 HOURS, First dose (after last modification) on Wed06/23/23 at 1000, Until Discontinued 1000 (Not Given - Provider: Heidy Paris RN - Reason: Patient/family refused)1332 ([facility] Hold - Provider: Admin Adt - Reason: Transfer to a Procedural area)1548 ([facility] Unhold - Provider: Admin Adt) 1000 (Not [...] Heidy Paris RN)211 (Given - Provider: Machelle Busch, ERWIN) 0931 (Given - Provider: Heidy Paris RN) senna-docusate (Pericolace) 8.6-50 mg per tablet 2 tablet 2 tablet, Oral, 2 TIMES DAILY, First dose on Wed06/17/23 at 1100, Until Discontinued, Routine 0900 (Not Given - Provider: Heidy Paris RN - Reason: Patient/family refused)1332 ([facility] Hold - Provider: Admin Adt - Reason: Transfer to a Procedural area)1548 ([facility] Unhold - Provider: Admin Adt)2100 (Not Given [...] 0859 (Given - Provider: Heidy Paris RN)1332 ([facility] Hold - Provider: Admin Adt - Reason: Transfer to a Procedural area)1548 ([facility] Unhold - Provider: Admin Adt)2100 (Not Given - Provider: Lorena Torres RN - Reason: Contraindicated) 0859 (Given - Provider: Heidy Paris RN)211 (Given - Provider: Machelle M Narayan, RN) 0937 (Given - Provider: Heidy Paris [...] Paris RN) 0931 (Given - Provider: Heidy Paris, ERWIN) topiramate (Topamax) tablet 100 mg 100 [...] (Intra-Procedure) 1410 (New Bag - Provider: Gisel Boyer, RN) PRN Medication Order 07/07/2023 07/08/2023 07/09/2023 acetaminophen (Tylenol) tablet 650 mg 650 mg, Oral, EVERY 6 HOURS PRN, Starting on Wed07/05/23 at 1522, Until Wed07/09/23 at 1844, Pain, Maximum dose of acetaminophen is 4,000 mg from all sources in 24 hours. When ordered for pain, acetaminophen should be given even when other ordered pain medications are indicated., Routine 1332 ([facility] Hold - Provider: Admin Adt - Reason: Transfer to a Procedural area)1548 ([facility] Unhold - Provider: Admin Adt) albuteroL (Proventil, Ventolin) (2.5 mg/3 mL) (0.083 %) nebulizer solution 2.5 mg 2.5 mg, Nebulization, EVERY 4 HOURS PRN, Starting on Wed07/04/23 at 0857, Until Wed07/09/23 at 1844, Wheezing, Routine 1332 ([facility] Hold - Provider: Admin Adt - Reason: Transfer to a Procedural area)1548 ([facility] Unhold - Provider: Admin Adt) lidocaine (Xylocaine) 1% (10 mg/mL) injection 3 mg 3 mg (0.3 mL), Subcutaneous, ONCE PRN, 1 dose, Starting on Wed06/15/23 at 0146, Until Wed07/09/23 at 1844, for discomfort with PIV insertion, Routine 1332 ([facility] Hold - Provider: Admin Adt - Reason: Transfer to a Procedural area)1548 ([facility] Unhold - Provider: Admin Adt) loratadine (Claritin) tablet 10 mg 10 mg, Oral, DAILY PRN, Starting on Wed06/15/23 at 0146, Until Wed07/09/23 at 1844, allergies, Routine 1332 ([facility] Hold - Provider: Admin Adt - Reason: Transfer to a Procedural area)1548 ([facility] Unhold - Provider: Admin Adt) nitroGLYcerin (Nitrostat) disintegrating tablet 0.4 mg 0.4 mg, Sublingual, EVERY 5 MIN PRN, Starting on Wed06/22/23 at 1119, Until Wed07/09/23 at 1844, Chest pain, SL nitroglycerin may be repeated every 5 minutes as needed up to 3 doses, Routine 1332 ([facility] Hold - Provider: Admin Adt - Reason: Transfer to a Procedural area)1548 ([facility] Unhold - Provider: Admin Adt) 0951 (Given - Provider: Heidy Paris, ERWIN) ondansetron (pf) (Zofran) (2 mg/mL) injection 4 mg 4 mg, Intravenous, EVERY 8 HOURS PRN, Starting on Wed06/29/23 at 1449, Until Wed07/09/23 at 1844, Nausea 1332 ([facility] Hold - Provider: Admin Adt - Reason: Transfer to a Procedural area)1548 ([facility] Unhold - Provider: Admin Adt)2137 (Given - Provider: Lorena Torres, ERWIN) 1008 (Given - Provider: Heidy Paris RN) 1140 (Given - Provider: Heidy Paris RN) oxyCODONE-acetaminophen (Percocet) 5-325 mg per tablet 1 tablet 1 tablet, Oral, EVERY 6 HOURS PRN, Starting on Wed07/06/23 at 1020, Until Wed07/09/23 at 1844, Pain, for pain refractory to PRN acetaminophen, Maximum dose of acetaminophen is 4000 mg from all sources in 24 hours., Routine 1332 ([facility] Hold - Provider: Admin Adt - Reason: Transfer to a Procedural area)1548 ([facility] Unhold - Provider: Admin Adt)2137 (Given - Provider: Lorena Torres, ERWIN) 0855 (Given - Provider: Heidy Paris, ERWIN)2120 (Given - Provider: Machelle Busch RN) simethicone (Gas-X Chew) 80 mg chewable tablet 80 mg 80 mg, Oral, EVERY 6 HOURS PRN, Starting on Wed06/20/23 at 0941, Until Wed07/09/23 at 1844, Cramping, Routine 1332 ([facility] Hold - Provider: Admin Adt - Reason: Transfer to a Procedural area)1548 ([facility] Unhold - Provider: Admin Adt) 1344 (Given [...] Routine documented in this encounter Care Teams Spot Sprayer Relationship Specialty Start Date End Date Polo Pearce PA [address] [place] [address] PCP - General Internal Medicine 06/09/21 documented as of this encounter
--- OUTSIDE RECORDS SUMMARY | 2023-10-02 22:43 | XMS_ITS | Encounter Summary ---
[place] [address] Care Team Providers Care Hand Carver Name Role Phone Polo Pearce Primary Care Provider [phone] Reason for Visit * Auth/Cert (Routine) Specialty Diagnoses / Procedures Referred By Jayant harris Referred To Contact Diagnoses NSTEMI (non-ST elevated myocardial infarction) NSTEMI Procedures ER Lloyd Pantoja MD [facility] [place] [address] [facility] Referral ID Status Reason Start Date Expiration Date Visits Re quested Visits Authorized [id number] 1 1 Encounter Details Date Type Department Care Team (Latest Contact Info) Description 07/02/2023 10:10 AM EDT - 07/02/2023 11:59 PM EDT Hospital [place] [address] Discharge Disposition: Home Social History Tobacco Use Types Packs/Day Years Used Date Smoking Tobacco: Never Smokeless Tobacco: Never Alcohol Use Standard Drinks/Week Comments Never 0 (1 standard drink = 0.6 oz pur e alcohol) [facility] Utilities Answer Date Recorded In the past 12 months has [employer] electric, gas, oil, or water company threatened [...] as needed. fluticasone propionate (FLONASE) 50 mcg/actuation [place], Suspension 1 spray by Each Nare route [...] ordered. Henrietta Judge MD Vascular Surgery Pager: [phone] 07/02/23 ASA: 3 Mal: 3 Cr: Lab Results Component Value Date CREATININE 1.21 (H) 07/02/2023 * Deborah Ely RN - 07/02/2023 10:56 AM EDT [facility] Name: Indira Roque Date of : 1970 AGE: 53 y.o. Address: [address] [place] [phone] (home) [phone] (work) Mobile: Telephone Information: Referring Provider: Pat [...] groin Right Groin Closure device used: Pro Delavan Time sheath removed: 13:12 Time of hemostasis: [...] of : 1970 AGE: 53 y.o. [address] [phone] (home) [phone] (work) Mobile: Telephone Information: Referring Provider: Pat [...] AM EDT Tech Visit [place] [address] Channing Kellogg [place] 10/08/2023 9:30 AM EDT Office Visit Vascular Surgery at [place] [phone] MD [facility] [place] [address] 10/21/2023 10:30 AM EDT Appointment Nuclear Medicine at [place] [phone] [place] [address] 10/21/2023 11:30 AM EDT Appointment Nuclear Medicine at [place] [phone] [place] [address] 10/21/2023 12:30 PM EDT Appointment Nuclear Medicine at [place] [phone] [place] [address] 10/21/2023 1:30 PM EDT Appointment [place] [address] Mary Reyes [facility] [place] [address] 10/21/2023 2:30 PM EDT Appointment [place] [address] Mary Reyes [facility] [place] [address] 10/26/2023 4:00 PM EDT Office Visit Cardiology at [address] [phone] Jaspreet Kinsey MD [facility] [place] [address] 10/28/2023 9:00 AM EDT Office Visit [place] [address] 10/29/2023 10:00 AM EDT Clinical Support [place] [address] 10/29/2023 10:15 AM EDT Procedure visit [place] [address] 11/01/2023 5:00 PM EDT Office [place] [phone] Selene Browning, PhD [facility] [place] [address] 11/22/2023 4:40 PM EDT Office Visit Cardiology at [address] [phone] Porsha Mcdaniels MD [facility] [place] [address] 12/13/2023 10:00 AM EDT Clinical Support [place] [phone] [facility] [place] [address] documented as of this encounter Procedures Procedure [...] mg documented in this encounter Care Teams Hand Carver Relationship Specialty Start Date End Date Polo Pearce PA [address] [place] [address] PCP - General Internal Medicine 06/09/21 documented as of this encounter
--- OUTSIDE RECORDS SUMMARY | 2023-10-02 22:43 | XMS_ITS | Encounter Summary ---
[place] [address] Care Team Providers Care Pot Liner Name Role Phone Polo Pearce Primary Care Provider [phone] Encounter Details Date Type Department Care Team (Late st Contact Info) Description 06/14/2023 External Results [place] [phone] Social History Tobacco Use Types Packs/Day Years [...] in a fpc (including now)? No 06/15/2023 IPV Inpatient Questions [...] AM EDT Tech Visit Vascular Lab at [place] [phone] Channing Escobedo [place] 10/08/2023 9:30 AM EDT Office Visit [place] [address] MD [facility] [place] [address] 10/21/2023 10:30 AM EDT Appointment [place] [phone] Mary Reyes APRN [place] [address] 10/21/2023 11:30 AM EDT Appointment [place] [phone] Mary Reyes APRN [facility] [place] [address] 10/21/2023 12:30 PM EDT Appointment [place] [address] [place] [address] 10/21/2023 1:30 PM EDT Appointment [place] [address] [place] [address] 10/21/2023 2:30 PM EDT Appointment [place] [address] [place] [address] 10/26/2023 4:00 PM EDT Office Visit Cardiology at [address] [phone] Jaspreet Kinsey MD [facility] [place] [address] 10/28/2023 9:00 AM EDT Office [place] [address] 10/29/2023 10:00 AM EDT Clinical [place] [address] 10/29/2023 10:15 AM EDT Procedure [place] [address] 11/01/2023 5:00 PM EDT Office Visit [place] [phone] Selene Browning, PhD [facility] [place] [address] 11/22/2023 4:40 PM EDT Office Visit Cardiology at [address] [phone] Porsha Mcdaniels MD [facility] [place] [address] 12/13/2023 10:00 AM EDT Clinical Support [place] [phone] Lucero Romero, RD [facility] [place] [address] documented as of this encounter Procedures Procedure Name Priority Date/Time Associated Diagnosis Comments ECG SCAN Routine 06/14/2023 11:24 AM EDT documented in this encounter Results * Scan Doc: ECG (06/14/2023 11:24 AM EDT) Historical Provider MD FLEMING MGTalia SCAN EX T ORDR/RSLT documented in this encounter Visit Diagnoses Not on filedocumented in this encounter Care Teams Pot Liner Relationship Specialty Start Date End Date Polo Pearce PA [address] [place] [address] PCP - General Internal Medicine 06/09/21 documented as of this encounter
--- OUTSIDE RECORDS SUMMARY | 2023-10-02 22:43 | XMS_ITS | Encounter Summary ---
[place] [address] Care Team Providers Care Correspondence Specialist Name Role Phone Polo Pearce Primary Care Provider [phone] Reason for Referral * Diagnostic Test (Routine) - Authorized Specialty Diagnoses / Procedures Referred By Jayant harris Referred To Contact Diagnoses Mesenteric ischemia Procedures Duplex Study Visceral Arteries, Comp Mamie Marx APRN [facility] [place] [address] [facility] Vascular Lab [address] [place] [phone] Referral ID Status Reason Start Date Expiration Date Visits Requested Visits Authorized [id number] Authorized Specialty Service Requested 06/28/2023 06/27/2024 1 1 Encounter Details Date Type Department Care Team (Late st Contact Info) Description 06/28/2023 Orders Only Vascular Surgery at [address] [phone] Mamie Marx APRN [facility] [place] [address] Mesenteric ischemia Social History Tobacco Use Types Packs/Day Years Used Date Smoking Tobacco: Never Smokeless Tobacco: Never Alcohol Use Standard Drinks/Week Comments Never 0 (1 standard drink = 0.6 oz pur e alcohol) [facility] Utilities Answer Date Recorded In the [...] in a mcc (including now)? No 06/15/2023 IPV Inpatient Questions [...] AM EDT Tech [place] [phone] Channing Escobedo [place] 10/08/2023 9:30 AM EDT Office Visit [place] [address] MD [facility] [place] [address] 10/21/2023 10:30 AM EDT Appointment [place] [address] Mary Reyes [facility] [place] [address] 10/21/2023 11:30 AM EDT Appointment [place] [address] [place] [address] 10/21/2023 12:30 PM EDT Appointment [place] [address] Mayr Reyes [facility] [place] [address] 10/21/2023 1:30 PM EDT Appointment [place] [address] Mary Reyes MANAGER [employer]ELOPMENT [facility] [place] [address] 10/21/2023 2:30 PM EDT Appointment [place] [address] Mary Reyes [facility] [place] [address] 10/26/2023 4:00 PM EDT Office Visit Cardiology at [address] [phone] Jaspreet Kinsey MD [facility] [place] [address] 10/28/2023 9:00 AM EDT Office [place] [address] 10/29/2023 10:00 AM EDT Clinical [place] [address] 10/29/2023 10:15 AM EDT Procedure [place] [address] 11/01/2023 5:00 PM EDT Office Visit [place] [phone] Selene Browning, [facility] [place] [address] 11/22/2023 4:40 PM EDT Office Visit Cardiology at [address] [phone] Porsha Mcdaniels MD [facility] [place] [address] 12/13/2023 10:00 AM EDT Clinical Support [place] [phone] [facility] [place] [place] [address] documented as of this encounter Results * Duplex Study Visceral Arteries, Comp (08/03/2023 8:36 AM EDT) VB Text Report Department: Vascular Surgery Lab Patient: [id number] (ROHAN LOIDA) CPT: 86334 Referring Physician: MAMIE MARX ?? Phone: Indications: S/p SMA stenting (07/01) one month f/u, ? patency Findings: Unilateral ? Waveform ? PSV cm/s ??EDV cm/s ??Patent ?? Dary Visceral Aorta ? 71 ?14 ? Celiac Artery, Proximal ??Ashe-Biphasic ? 100 ?22 ? Celiac Artery, Mid ? Ashe-Biphasic ?99 ?19 ? Celiac Artery, Distal ?Ashe-Biphasic ?94 ?18 ? Sup Mes Artery Proximal [...] within mesenteric artery stents may differ from [place] arteries, with thresholds for diagnosis of significant stenosis likely being somewhat higher in stented arteries than [place].% To date, there is no evidence based consensus of stent velocity criteria. Therefore, the current interpretation is based on [place] artery thresholds. Previous Celiac/Mesenteric Studies: Date ? [...] intestine documented in this encounter Care Teams Correspondence Specialist Relationship Specialty Start Date End Date Polo Pearce PA [address] [place] [address] PCP - General Internal Medicine 06/09/21 documented as of this encounter
--- OUTSIDE RECORDS SUMMARY | 2023-10-02 22:43 | XMS_ITS | Encounter Summary ---
Author Organization [facility] Address [facility] [address] Care Team Providers Care Child Care Counselor Name Role Phone Polo Pearce Primary Care Provider [phone] Encounter Details Date Type Department Care Team (Latest Contact Info) Description 04/30/2023 Travel Social History Tobacco Use Types Packs/Day Years Used Date Smoking Tobacco: Never Smokeless Tobacco: Never Alcohol Use Standard Drinks/Week Comments Never 0 (1 standard drink = 0.6 oz pur e alcohol) [facility] Utilities Answer Date Recorded In the [...] Yes 04/19/2023 Housing Stability Vital Sign Answer Imtchell e Recorded In the last 12 months, [...] slept in a fdc (including now)? No 04/19/2023 [facility] Inpatient Questions Answer Date Recorded Does Anyone [...] AM EDT Tech [place] [phone] [place] Escob[place] 10/08/2023 9:30 AM EDT Office Visit [place] [phone] MD [facility] [place] [address] 10/21/2023 10:30 AM EDT Appointment [place] [address] Mary Reyes AGILE TESTER [facility] [place] [address] 10/21/2023 11:30 AM EDT Appointment [place] [phone] Mary Reyes APRN [facility] [place] [address] 10/21/2023 12:30 PM EDT Appointment [place] [address] Mary Reyes, [place] [address] 10/21/2023 1:30 PM EDT Appointment [place] [address] Mary [place] [address] 10/21/2023 2:30 PM EDT Appointment [place] [address] [place] [address] 10/26/2023 4:00 PM EDT Office Visit Cardiology at [address] [phone] Jaspreet Kinsey MD [facility] [place] [address] 10/28/2023 9:00 AM EDT Office [place] [address] 10/29/2023 10:00 AM EDT Clinical [place] [address] 10/29/2023 10:15 AM EDT Procedure [place] [address] 11/01/2023 5:00 PM EDT Office [place] [address] Selene Browning, PhD [facility] [place] [address] 11/22/2023 4:40 PM EDT Office Visit Cardiology at [address] [phone] Porsha Mcdaniels MD [facility] [place] [address] 12/13/2023 10:00 AM EDT Clinical Support [place] [address] [facility] [place] [address] documented as of this encounter Visit Diagnoses Not on filedocumented in this encounter Care Teams Child Care Counselor Relationship Specialty Start Date End Date Polo Pearce PA [address] [place] [address] PCP - General Internal Medicine 06/09/21 documented as of this encounter
--- OUTSIDE RECORDS SUMMARY | 2023-10-02 22:43 | XMS_ITS | Encounter Summary ---
Author Organization Formerly [facility] Address [facility] [place] [address] Care Team Providers Care Mac Operator Name Role Phone Polo Pearce Primary Care Provider [phone] Reason for Visit * Reason Comments Cardiomyopathy Encounter Details Date Type Department Care Team (Late st Contact Info) Description 05/10/2023 2:40 PM EST Office Visit Cardiology at [address] [place] [address] Jaspreet Kinsey MD [facility] [place] [address] Heart failure with preserved ejection fraction, unspecified HF chronicity (Primary Dx); SVT (supraventricular tachycardia) Social History Tobacco Use Types Packs/Day Years Used Date Smoking Tobacco: Never Smokeless Tobacco: Never Alcohol Use Standard Drinks/Week Comments Never 0 (1 standard drink = 0.6 oz pur e alcohol) [facility] Utilities Answer Date Recorded In the past 12 months has [employer], gas, oil, or water company threatened [...] slept in a mcfp (including now)? No 04/19/2023 DH IPV Inpatient [...] Oral, DAILY fluticasone propionate (FLONASE) 50 mcg/actuation [place], Suspension 1 spray, Each Nare, PRN gabapentin [...] consider referral to the clare Mcdaniels of [facility] expertise IN the meantime, increase torsemide [...] AM EDT Tech [place] [address] Channing Escobedo [place] 10/08/2023 9:30 AM EDT Office [place] [address] MD [facility] DR VASCULAR SURGERY [place], [place] [phone] 10/21/2023 10:30 AM EDT Appointment [place] [phone] [place] [address] 10/21/2023 11:30 AM EDT Appointment [place] [phone] Mary [place] [address] 10/21/2023 12:30 PM EDT Appointment [place] [address] Mary [place] [address] 10/21/2023 1:30 PM EDT Appointment [place] [address] Mary Reyes SENIOR ELECTRONICS TECHNICIAN [facility] [place] [address] 10/21/2023 2:30 PM EDT Appointment [place] [address] Mary Reyes SENIOR ELECTRONICS TECHNICIAN [facility] [place] [address] 10/26/2023 4:00 PM EDT Office Visit Cardiology at [address] [phone] Jaspreet Kinsey MD [facility] [place] [address] 10/28/2023 9:00 AM EDT Office [place] [address] 10/29/2023 10:00 AM EDT Clinical [place] [address] 10/29/2023 10:15 AM EDT Procedure [place] [address] 11/01/2023 5:00 PM EDT Office [place] [address] Selene Browning, PhD [facility] [place] [address] 11/22/2023 4:40 PM EDT Office Visit Cardiology at [address] [phone] Porsha Mcdaniels MD [facility] [place] [address] 12/13/2023 10:00 AM EDT Clinical [place] [address] [facility] [place] [address] documented as of this encounter Results * Streptococcal Antibody Panel (08/25/2023 11:28 AM EDT) [facility] ASO Titer 25 0 - 530 IU/mL [facility] Comment: Test Performed by: [place] [address] Sanding Machine Tender Automatic: Nellie Haney Ph.D.; CLIA# [id number] DNase B Ab 146 0 - 300 unit/mL [facility] Comment: Test Performed by: [place] [address] Sanding Machine Tender Automatic: Nellie Haney Ph.D.; CLIA# [id number] Blood 08/25/2023 11:2 8 AM EDT 08/25/2023 1:02 PM EDT Narrative Resulting Agency Comment Spec In Lab Jaspreet Kinsey MD IMMUNOLOGY ORDERABLE S [facility] [place] [address] * Lyme IgG & IgM Antibody (08/25/2023 11:28 AM EDT) [facility] Lyme Screening Antibody Negative Negative [facility] Lyme Ab Comment Negative result does not exclude possibility of infection. [facility] Comment: Please note that as of 07/14/2022 that this testing is performed by the Special Chemistry Laboratory at [facility]. This change in testing location is associated with a change in testing methodology. Blood 08/25/2023 11:2 8 AM EDT 08/26/2023 7:26 AM EDT Narrative Resulting Agency Comment Spec In Lab Jaspreet Kinsey MD IMMUNOLOGY ORDERABLE S Performing Organization Address [facility] Co de Phone Number [facility] [place] [address] * Ferritin (08/25/2023 11:28 AM EDT) Ferritin 110 11 - 328 ng/mL [facility] Comment: Please note that as of 02/10/2023, the reference intervals for Ferritin have been updated. Blood 08/25/2023 11:2 8 AM EDT 08/25/2023 11:37 AM EDT Narrative Resulting Agency Comment Spec In Lab Jaspreet Kinsey MD CHEMISTRY ORDERABLES Performing Organization Address [facility] Co de Phone Number [facility] [place] [address] * Iron and TIBC (08/25/2023 11:28 AM EDT) Pathologist [facility] Iron 113 30 - 150 mcg/dL [facility] TIBC 338 250 - 450 mcg/dL [facility] Iron Saturation 33 20 - 50 % [facility] Blood 08/25/2023 11:2 8 AM EDT 08/25/2023 11:36 AM EDT Narrative Resulting Agency Comment Spec In Lab Jaspreet Kinsey MD CHEMISTRY ORDERABLES Performing Organization Address [facility] Co de Phone Number [facility] [place] [address] * (ABNORMAL) Free Light Chains, Serum (08/25/2023 11:28 AM EDT) [place] Free Light Chain 3.09(H) 0.72 - 2.75 mg/dL [facility] Lambda Free Light Chain 1.65 0.57 - 2.15 mg/dL [facility] [place] Lambda FLC Ratio 1.8727 0.4000 - 2.5800 [facility] Blood 08/25/2023 11:2 8 AM EDT 08/25/2023 11:36 AM EDT Narrative Resulting Agency Comment Spec In Lab Jaspreet Kinsey MD CHEMISTRY ORDERABLES Performing Organization Address [facility] Co de Phone Number [facility] [place] [address] * (ABNORMAL) Protein Electrophoresis, serum (08/25/2023 11:28 [...] CHEMISTRY ORDERABLES Performing Organization Address [facility] Co de Phone Number [facility] [place] [address] * KATHRINE Antibody Screen (08/25/2023 11:28 AM EDT) Antinuclear Ab Negative Negative [facility] Comment: This antinuclear antibody (KATHRINE) screen is a qualitative test performed using a fluoroenzyme immunoassay on the Celergo 250 analyzer. This screen is designed to [...] generated using a fluoroenzyme immunoassay on the vzaara 250 analyzer. This quantitative test is designed to detect IgG antibodies directed against double stranded DNA in human serum. The presence of antibodies that recognize dsDNA is a highly specific marker for systemic lupus erythematosus. Please note that as of 12/30/2021 that this testing is performed by the Special Chemistry Laboratory at [facility]. This change in testing location is associated with a change is testing method and reference intervals. Please review the results of this test in association with the posted reference intervals. Blood 08/25/2023 11:2 8 AM EDT 08/26/2023 7:26 AM EDT Narrative Resulting Agency Comment Spec In Lab Jaspreet Kinsey MD IMMUNOLOGY ORDERABLE S [facility] [place] [address] documented in this encounter Visit Diagnoses Diagnosis Heart failure with preserved ejection fraction, unspecified HF chronicity- Primary SVT (supraventricular tachycardia) Other specified cardiac dysrhythmias documented in this encounter Care Teams Mac Operator Relationship Specialty Start Date End Date Polo Pearce PA [address] [place] [address] PCP - General Internal Medicine 06/09/21 documented as of this encounter
--- OUTSIDE RECORDS SUMMARY | 2023-10-02 22:43 | XMS_ITS | Encounter Summary ---
Author Organization [facility] Address [facility] [place] [address] Care Team Providers Care Environmental Studies Program Director Name Role Phone Polo Pearce Primary Care Provider [phone] Encounter Details Date Type Department Care Team (Latest Contact Info) Description 06/22/2023 Travel Social History Tobacco Use Types Packs/Day Years Used Date Smoking Tobacco: Never Smokeless Tobacco: Never Alcohol Use Standard Drinks/Week Comments Never 0 (1 standard drink = 0.6 oz pur e alcohol) [facility] Utilities Answer Date Recorded In [...] AM EDT Tech [place] [address] Channing Escobedo [place] 10/08/2023 9:30 AM EDT Office [place] [address] MD [facility] [place] [address] 10/21/2023 10:30 AM EDT Appointment [place] [phone] Mary Reyes SUPPLY CATALOGUER [facility] [place] [address] 10/21/2023 11:30 AM EDT Appointment [place] [address] Mary Reyes APRN [facility] [place] [address] 10/21/2023 12:30 PM EDT Appointment [place] [address] Mary Reyes, [place] [address] 10/21/2023 1:30 PM EDT Appointment [place] [address] Mary Re[place] [address] 10/21/2023 2:30 PM EDT Appointment [place] [address] [place] [address] 10/26/2023 4:00 PM EDT Office Visit Cardiology at [address] [phone] Jaspreet Kinsey MD [facility] [place] [address] 10/28/2023 9:00 AM EDT Office [place] [address] 10/29/2023 10:00 AM EDT Clinical [place] [address] 10/29/2023 10:15 AM EDT Procedure [place] [address] 11/01/2023 5:00 PM EDT Office [place] [address] Selene Browning, PhD [facility] [place] [address] 11/22/2023 4:40 PM EDT Office Visit Cardiology at [address] [address] Porsha Mcdaniels MD [facility] [place] [address] 12/13/2023 10:00 AM EDT Clinical [place] [address] [facility] [place] [address] documented as of this encounter Visit Diagnoses Not on filedocumented in this encounter Care Teams Environmental Studies Program Director Relationship Specialty Start Date End Date Polo Pearce PA Sb MOTT [address] [place] [address] PCP - General Internal Medicine 06/09/21 documented as of this encounter
--- OUTSIDE RECORDS SUMMARY | 2023-10-02 22:43 | XMS_ITS | Encounter Summary ---
Author Organization [facility] Address [facility] [address] Care Team Providers Care Furnace Installer Helper Name Role Phone Polo Pearce Primary Care Provider [phone] Encounter Details Date Type Department Care Team (Latest Contact Info) Description 05/10/2023 Travel Social History Tobacco Use Types Packs/Day Years Used Date Smoking Tobacco: Never Smokeless Tobacco: Never Alcohol Use Standard Drinks/Week Comments Never 0 (1 standard drink = 0.6 oz pur e alcohol) [facility] Utilities Answer Date Recorded In the [...] in a residential (including now)? No 04/19/2023 [facility] Inpatient Questions Answer Date [...] AM EDT Tech Visit [place] [address] Channing Escobedo [place] 10/08/2023 9:30 AM EDT Office Visit [place] [phone] MD [facility] [place] [address] 10/21/2023 10:30 AM EDT Appointment [place] [address] Mary Reyes APPLIANCE REPAIR TECHNICIAN [facility] [place] [address] 10/21/2023 11:30 AM EDT Appointment [place] [address] Mary Reyes APRN [facility] [place] [address] 10/21/2023 12:30 PM EDT Appointment [place] [address] Mary Reyes, [place] [address] 10/21/2023 1:30 PM EDT Appointment [place] [address] Mary Reyes APPLIANCE [place] [address] 10/21/2023 2:30 PM EDT Appointment [place] [address] [place] [address] 10/26/2023 4:00 PM EDT Office Visit Cardiology at [address] [phone] Jaspreet Kinsey MD [facility] [place] [address] 10/28/2023 9:00 AM EDT Office Visit [place] [address] 10/29/2023 10:00 AM EDT Clinical Support [place] [address] 10/29/2023 10:15 AM EDT Procedure visit [place] [address] 11/01/2023 5:00 PM EDT Office Visit [place] [address] Selene Browning, PhD [facility] [place] [address] 11/22/2023 4:40 PM EDT Office Visit Cardiology at [address] [address] Porsha Mcdaniels MD [facility] [place] [address] 12/13/2023 10:00 AM EDT Clinical Support [place] [address] [facility] [place] [address] documented as of this encounter Visit Diagnoses Not on filedocumented in this encounter Care Teams Furnace Installer Helper Relationship Specialty Start Date End Date Polo Pearce PA Sb MOTT [address] [place] [address] PCP - General Internal Medicine 06/09/21 documented as of this encounter
--- OUTSIDE RECORDS SUMMARY | 2023-10-02 22:43 | XMS_ITS | Encounter Summary ---
[place] [address] Care Team Providers Care Windows Server Administrator Name Role Phone Polo Pearce Primary Care Provider [phone] Reason for Visit * Diagnostic Test (Routine) - Closed Specialty Diagnoses / Procedures Referred By Jayant harris Referred To Contact Radiology Diagnoses Chest pain, unspecified type Procedures NM PET CT Cardiac Sarcoid Maegan Mike [facility] [place] [address] [place] [address] Referral ID Status Reason Start Date Expiration Date V isits Requested Visits Authorized [id number] Closed Specialty Service Requested 04/22/2023 10/20/2024 4 4 Encounter Details Date Type Department Care Team (Latest Contact Info) Description 04/30/2023 11:05 AM EST - 04/30/2023 11:59 PM EST Hospital Encounter [place] [address] Maegan Mike [facility] [place] [address] Discharge Disposition: Home Social History [...] nightly as needed. empagliflozin (Jardiance) 10 mg TabletIndications:Chainstitch Pants Outseamer neal heart failure with preserved ejection fraction Take 1 tablet by mouth daily. 90 tablet 1 06/11/2021 rOPINIRole (Requip) 1 mg Tablet Take 2 mg by mouth 2 times daily. 07/16/2020 loratadine (Claritin) 10 mg Tablet Take 10 mg by mouth daily as needed. fluticasone propionate (FLONASE) 50 mcg/actuation [place], Suspension 1 spray by Each Nare route [...] AM EDT Tech [place] [address] Channing Escobedo [place] 10/08/2023 9:30 AM EDT Office Visit Vascular Surgery at [place] [phone] MD [facility] [place] [address] 10/21/2023 10:30 AM EDT Appointment Nuclear Medicine at [place] [phone] [place] [address] 10/21/2023 11:30 AM EDT Appointment Nuclear Medicine at [place] [phone] [place] [address] 10/21/2023 12:30 PM EDT Appointment [place] [address] [place] [address] 10/21/2023 1:30 PM EDT Appointment [place] [address] Mary Reyes [facility] [place] [address] 10/21/2023 2:30 PM EDT Appointment [place] [address] Mary Reyes [facility] [place] [address] 10/26/2023 4:00 PM EDT Office Visit Cardiology at [address] [address] Jaspreet Kinsey MD [facility] [place] [address] 10/28/2023 9:00 AM EDT Office [place] [address] 10/29/2023 10:00 AM EDT Clinical [place] [address] 10/29/2023 10:15 AM EDT Procedure [place] [address] 11/01/2023 5:00 PM EDT Office [place] [phone] Selene Browning, PhD [facility] [place] [address] 11/22/2023 4:40 PM EDT Office Visit Cardiology at [address] [phone] Porsha Mcdaniels MD [facility] [place] [address] 12/13/2023 10:00 AM EDT Clinical [place] [address] [facility] [place] [address] documented as of this encounter Procedures Procedure [...] have questions please contact the health care asst that requested your imaging first. ? 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 Following IV administration of 26.5 mCi technetium 99m sestamibi, SPECT-CT of the heart was obtained. Following IV injection of 8.8 mCi 01-tceqcd-2-deoxyglucose (FDG) and a standard uptake of approximately [...] obtained. Following IV injection of 8.8 mCi 18-hgxdot-3-deoxyglucose (FDG) and astandard uptake of approximately 60 [...] who have questions please contactthe health care asst that requested your imaging first. Maegan Mike [employer]ILED COIL INSPECTOR IMG PET ORDERABLE S documented in this encounter Visit Diagnoses Not on filedocumented in this encounter Care Teams Windows Server Administrator Relationship Specialty Start Date End Date Polo Pearce PA [address] [place] [address] PCP - General Internal Medicine 06/09/21 documented as of this encounter
--- OUTSIDE RECORDS SUMMARY | 2023-10-02 22:43 | XMS_ITS | Encounter Summary ---
Author Organization [facility] Address [facility] [place] [address] Care Team Providers Care Monorail Helper Name Role Phone Polo Pearce Primary Care Provider [phone] Encounter Details Date Type Department Care Team (Late st Contact Info) Description 06/14/2023 Telephone Cardiology at [address] [address] Sarah Kahn, POLICE OFFICER [facility] [place] [address] Social History Tobacco Use Types Packs/Day Years Used Date Smoking Tobacco: Never Smokeless Tobacco: Never Alcohol Use Standard Drinks/Week Comments Never 0 (1 standard drink = 0.6 oz pur e alcohol) [facility] Utilities Answer Date Recorded In the past 12 months has [employer], gas, oil, or water [employer] threatened to shut off services in your [...] AM Referring Provider: Dr. Iyer Patient Location: [facility] Past Medical History: Mild, nonobstructive CAD, s/p [facility] 04/2023 for similar presentation SVT s/p [...] showed no evidence of inflammation/sarcoid. Troponin at [facility] at the time of her event [...] or examined this patient. Sarah Kahn, MICHELL, LICENSED ESTHETICIAN-BC, POLICE OFFICER [facility] Cardiovascular Medicine documented in this encounter Plan of Treatment Upcoming Encounters Date Type Department Care Team (Late st Contact Info) Description 10/08/2023 8:30 AM EDT Tech [place] [address] Channing Kellogg [place] 10/08/2023 9:30 AM EDT Office Visit Vascular Surgery at [place] [phone] MD [facility] [place] [address] 10/21/2023 10:30 AM EDT Appointment Nuclear Medicine at [place] [phone] [place] [address] 10/21/2023 11:30 AM EDT Appointment Nuclear Medicine at [place] [phone] [place] [address] 10/21/2023 12:30 PM EDT Appointment Nuclear Medicine at [place] [phone] [place] [address] 10/21/2023 1:30 PM EDT Appointment [place] [address] Mary Reyes [facility] [address] 10/21/2023 2:30 PM EDT Appointment [place] [address] Mary Reyes [facility] [address] 10/26/2023 4:00 PM EDT Office Visit Cardiology at [address] [place] [phone] Jaspreet Kinsey MD [facility] [place] [place] [address] 10/28/2023 9:00 AM EDT Office [place] [address] 10/29/2023 10:00 AM EDT Clinical Support [place] [address] 10/29/2023 10:15 AM EDT Procedure [place] [address] 11/01/2023 5:00 PM EDT Office Visit [place] [address] Selene Browning, PhD [facility] [place] [address] 11/22/2023 4:40 PM EDT Office Visit Cardiology at [address] [phone] Porsha Mcdaniels MD [facility] [place] [address] 12/13/2023 10:00 AM EDT Clinical Support [place] [address]-[address] [facility] [place] [address] documented as of this encounter Visit Diagnoses Not on filedocumented in this encounter Care Teams Monorail Helper Relationship Specialty Start Date End Date Polo Pearce PA Sb MOTT [address] [place] [address] PCP - General Internal Medicine 06/09/21 documented as of this encounter
--- OUTSIDE RECORDS SUMMARY | 2023-10-02 22:43 | XMS_ITS | Encounter Summary ---
[facility] Organization [facility] Address [facility] [place] [address] Care Team Providers Care Credit Verification Clerk Name Role Phone Polo Pearce Primary Care Provider [phone] Reason for Referral * Consultation (Routine) - Closed Specialty Diagnoses / Procedures Referred By Jayant harris Referred To Contact Cardiology Diagnoses Heart failure with preserved ejection fraction, unspecified HF chronicity [place]. thorough evaluation performed to date. Jaspreet Kinsey MD [facility] [place] [address] Porsha Mcdaniels MD [facility] [place] [address] Referral ID Status Reason Start Date Expiration Date V isits Requested Visits Authorized [id number] Closed Consult, Test & Treat 06/09/2023 06/08/2024 1 1 Encounter Details Date Type Department Care Team (Late st Contact Info) Description 06/09/2023 Telephone Cardiology at [address] [place] [address] Jasrpeet Kinsey MD [facility] [place] [address] Social History Tobacco Use Types Packs/Day [...] Havejean pierreo [place] [facility] [place] of what is termed [...] AM EDT Tech Visit [place] [address] [place] 10/08/2023 9:30 AM EDT Office [place] [id number] MD [facility] [place] [address] 10/21/2023 10:30 AM EDT Appointment Nuclear Medicine [place] [address] Mary Reyes [facility] [place] [address] 10/21/2023 11:30 AM EDT Appointment Nuclear Medicine at [place] [phone] Mary Reyes [facility] [place] [address] 10/21/2023 12:30 PM EDT Appointment Nuclear Medicine at [place] [phone] Mary Reyes [facility] [place] [address] 10/21/2023 1:30 PM EDT Appointment [place] [address] Mary Reyes [facility] [place] [address] 10/21/2023 2:30 PM EDT Appointment [place] [address] Mary Reyes [facility] [place] [address] 10/26/2023 4:00 PM EDT Office Visit Cardiology at [address] [phone] Jaspreet Kinsey MD [facility] [place] [address] 10/28/2023 9:00 AM EDT Office [place] [address] 10/29/2023 10:00 AM EDT Clinical Support [place] [address] 10/29/2023 10:15 AM EDT Procedure [place] [address] 11/01/2023 5:00 PM EDT Office Visit Gastroenterology at [place] [phone] Selene Browning, PhD [facility] [place] [address] 11/22/2023 4:40 PM EDT Office Visit Cardiology at [address] [address] Porsha Mcdaniels MD [facility] [place] [address] 12/13/2023 10:00 AM EDT Clinical [place] [address] Lucero Romero, RD [facility] [place] [place] [address] Scheduled Referrals Name Type Priority Associated Diagnoses Orde r Schedule Referral to Cardiology Outpatient Referral Routine Heart failure with preserved ejection fraction, unspecified HF chronicity Ordered: 06/09/2023 documented as of this encounter Visit Diagnoses Diagnosis Heart failure with preserved ejection fraction, unspecified HF chronicity documented in this encounter Care Teams Credit Verification Clerk Relationship Specialty Start Date End Date Polo Pearce PA [address] [place] [address] PCP - General Internal Medicine 06/09/21 documented as of this encounter
--- OUTSIDE RECORDS SUMMARY | 2023-10-02 22:44 | XMS_ITS | Encounter Summary ---
[place] [address] Care Team Providers Care Vice President Network Name Role Phone Polo Pearce Primary Care Provider [phone] Reason for Referral * Diagnostic Test (Routine) - Closed Specialty Diagnoses / Procedures Referred By Jayant harris Referred To Contact Radiology Diagnoses Chest pain, unspecified type Procedures NM PET CT Cardiac Sarcoid Maegan Mike APRN [facility] [place] [address] [place] [address] Referral ID Status Reason Start Date Expiration Date V isits Requested Visits Authorized [id number] Closed Specialty Service Requested 04/22/2023 10/20/2024 4 4 Reason for Visit * Auth/Cert (Routine) Specialty Diagnoses / Procedures Referred By Jayant harris Referred To Contact Diagnoses NSTEMI (non-ST elevated myocardial infarction) NSTEMI Procedures ER Terrence Pantoja MD [facility] [place] [address] [facility] Referral ID Status Reason Start Date Expiration Date Visits Re quested Visits Authorized [id number] 1 1 Encounter Details Date Type Department Care Team (Latest Contact Info) Description 04/16/2023 11:15 PM EST - 04/22/2023 5:15 PM EST Hospital Encounter Heart and Vascular Unit Level 4 Wing B at [facility] [place] [address] Jose Gallegos MD [facility] [place] [address] Ailyn Knight MD [facility] [place] [address] Terrence Maloney MD [facility] [place] [address] Eufemia Copeland MD [facility] [place] [address] Chest pain, unspecified type; Non-ST elevation myocardial infarction (NSTEMI); Swelling of hand, unspecified laterality; Arm edema Discharge Disposition: Home Social History Tobacco Use Types Packs/Day Years Used Date Smoking Tobacco: Never Smokeless Tobacco: Never Alcohol Use Standard Drinks/Week Comments Never 0 (1 standard drink = 0.6 oz pur e alcohol) [facility] Utilities Answer Date Recorded In the past 12 months has e [employer], gas, oil, or water [employer] threatened to shut off services in your [...] slept in a prison (including now)? No 04/19/2023 DH IPV Inpatient [...] Loida Madrigal Patient Age: 53 y.o. Language: Danish Admit date: 04/16/2023 Discharge date and time: [...] lung disease secondary to obesity transferred from [facility] for further evaluation of exertional chest pressure and breathlessness. Abnormal OSH troponin 500 and repeat HS Trop at [facility] peak 27 with [...] discharge Inpatient Provider Contact Information: Cardiovascular Medicine [phone] Discharge Diagnoses (Hospital Problems) and Secondary Diagnoses [...] motion has increased. CTA PE protocol at [facility]- no PE but showed small pericardial effusion and some GG opacities. History of Presentation: Loida Madrigal is a 53 y.o. with hx of paroxysmal A-fib (diagnosed on 10/20/2022), pulmonary emboli on Eliquis, HFpEF (EF of 59%), supraventricular tachycardia (AVNRT since 06/2021) s/p EPS and SVTablation on 1/25/[address] Tovar on [facility], restrictive lung disease secondary to obesity presents from [facility] with complains of chest discomfort that started overnight. The patient has been experiencing ongoing chest pain, prompting admission on 02/11/23 primarily due to concerns about a NSTEMI indicated by elevated troponin levels and EKG changes noted at OSH. However, the observed EKG changes remained largely consistent with previous recordings. Troponin levels at [facility] showed a plateau [...] again 10/15, improving with sublingua Nitro. At [facility] Vitals: HR 48, BP 115/42, [...] #Acute on chronic HFpEF Patient presented to [facility] on 04/16 with chest pain responsive to SL NTG. Troponin ~500x2. Transferred[facility] for further evaluation. Troponin at [facility], 24>23 w/ repeat peak 27->26. She reported [...] pulmonary findings. [facility] 06/09/2021-RA 4, PA 38/15 () PCWP 11, CO/CI 3.14/1.6. C 08/30/2019-normal coronary [...] days. Refills: 0 fluticasone propionate 50 mcg/actuation [place], Suspension Commonly known as: Flonase 1 spray [...] 9:40 AM Jaspreet Kinsey MD Cardiology at [place] Arrive at: [facility] [address] [phone] 09/21/2023 3:00 PM Jaspreet Kinsey MD Cardiology at [place] Arrive at: [facility] [address] [phone] Discharge References/Attachments None Greater than 30 minutes was spent on this discharge including documentation, jhlv-[id number] time withthe patient, patient education, line ordering clinician, coordination with pharmacy and other patient care. [...] away. Stay on the phone. The emergency cocoa milling machine operator will tell you what to [...] of 8AM-5PM please call the Cardiology Clinic [phone] to speak with a nurse. All other hours please call the Hospital [facility] [employer]ching [employer] [phone] and ask to speak to the sql report analyst on-call. Return to work: One week Follow up Appointments: Doctor Where Phone # Date Time PCP JOCY Franco [address] [place] [address] 04/28/2023 7:30 [address] Kinsey [facility] [address] 05/10/2023 9:40 AM * Attachments The following attachments cannot be sent through Care Everywhere. * Coronary Angiogram: Post-op (Danish) documented in this encounter Medications at Time [...] as needed. 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 90 tablet 1 06/11/2021 rOPINIRole (Requip) 1 mg Tablet Take 2 mg by mouth 2 times daily. 07/16/2020 loratadine (Claritin) 10 mg Tablet Take 10 mg by mouth daily as needed. fluticasone propionate (FLONASE) 50 mcg/actuation [place], Suspension 1 spray by Each Nare route [...] reviewed with pt, pt wheeled to d/c [facility]. I agree with the information in this [...] note were not included. CARDIOLOGY APP1 - [facility] DAILY PROGRESS NOTE Page [phone] to reach a provider 28/09 Admit Date: [...] Behavior: Behavior normal. Labs: Recent Labs 04/21/23 03404/20/23 03104/19/23 0240 04/18/2320904/17/23 033 WBC 7.1 6.6 7.5 6.7 7.4 HGB 14.4 14.2 14.8 15.2 14.8 HCT 43.0 42.7 45.5 44.9 44.3 PLATELET 221 231 240 233 233 MCV 93.7 93.0 93.6 91.1 92.5 Recent Labs 04/21/23 03404/20/23 03104/19/23 02404/18/2320904/17/23 0333 NA 138 139 139 143 141 [...] 04/20/23 1048 04/17/23 0643 04/17/23 033 TROPONINTHS 26* 27* 24* 23* 24* PROBNP [...] 12 CRP <=4.9 mg/L <3.0 <3.0 OSH [facility] troponin ~500. Telemetry: I have [...] disease secondary to obesity who presented to [facility] on 04/16 with chest pain responsive to SL NTG. Troponin ~500x2. Transferred to [facility] for further evaluation. Troponin at [facility], 24>23. Reports exertional chest pressure and dyspnea [...] sig migraines occur Diet: Carb Control diet / CHO counting level 1 High Protein DVT Prophylaxis: DOAC Code status: Attempt Cardiopulmonary Resuscitation - Inpatient Disposition: Discharge Location: AM-P[facility] Basic Mobility Raw Score: 24 PT: OT: PCP JOCY Franco [phone] Discussed with MD Kurt Ray PA-C APP1 pager [phone] 04/22/2023 CV HOSPITALIST ADDENDUM Date of Service: [...] 04/21/2023 6:10 PM EST CARDIOLOGY APP1 - [facility] DAILY PROGRESS NOTE Page [phone] to reach a provider 28/09 Admit Date: [...] 12 CRP <=4.9 mg/L <3.0 <3.0 OSH [facility] troponin ~500. Telemetry: I have [...] disease secondary to obesity who presented to [facility] on 04/16 with chest pain responsive to SL NTG. Troponin ~500x2. Transferred to [facility] for further evaluation. Troponin at [facility], 24>23. Reports exertional chest pressure and dyspnea [...] and no pericardial effusion. She underw ent [facility] on 04/18 which showed non-obstructive ASCVD. [...] occur Diet: Daily Healthy Menu Choices/Cardiac diet ([facility]-Diet) 2 GM NA DVT Prophylaxis: DOAC Code status: Attempt Cardiopulmonary Resuscitation - Inpatient Disposition: Discharge Location: AM-PAC Basic Mobility Raw Score: 22 PT: OT: PCP JOCY Franco [phone] * Eufemia Copeland MD - 04/20/2023 4:34 PM EST CARDIOLOGY APP1 - [facility] DAILY PROGRESS NOTE Page [phone] to reach a provider 28/09 Admit Date: [...] Behavior normal. Labs: Recent Labs 04/20/23 03104/19/23 02404/18/2320904/17/23 0333 WBC 6.6 7.5 6.7 7.4 HGB 14.2 14.8 15.2 14.8 HCT 42.7 45.5 44.9 44.3 PLATELET 231 240 233 233 MCV 93.0 93.6 91.1 92.5 Recent Labs 04/20/23 03104/19/23 0240 04/18/230 04/17/23 0333 NA 139 139 143 141 [...] 04/20/23 1048 04/17/23 0643 04/17/23 0333 TROPONINTHS 27* 24* 23* 24* PROBNP -- [...] 12 CRP <=4.9 mg/L <3.0 <3.0 OSH [facility] troponin ~500. Telemetry: I have [...] disease secondary to obesity who presented to [facility] on 04/16 with chest pain responsive to SL NTG. Troponin ~500x2. Transferred to [facility] for further evaluation. Troponin at [facility], 24>23. Reports exertional chest pressure and dyspnea [...] and no pericardial effusion. She underw ent [facility] on 04/18 which showed non-obstructive ASCVD. [...] occur Diet: Daily Healthy Menu Choices/Cardiac diet ([facility]-Diet) 2 GM NA; 2000 mL FLUID DVT Prophylaxis: DOAC Code status: Attempt Cardiopulmonary Resuscitation - Inpatient Disposition: Discharge Location: [facility] Basic Mobility Raw Score: 24 PT: OT: PCP JOCY Franco [phone] * Carrol La PA - 04/19/2023 12:32 PM EST CARDIOLOGY APP1 - [facility] DAILY PROGRESS NOTE Page [phone] to reach a provider 28/09 Admit Date: [...] MCV 93.6 91.1 92.5 Recent Labs 04/19/23 02404/18/2320904/17/23 033 NA 139 143 141 CL 105 107 [...] 12 CRP <=4.9 mg/L <3.0 <3.0 OSH [facility] troponin ~500. EKG: Sinus bradycardia, 47 bpm, PAC, possible left atrial enlargement, possible lateral infarct, QTc 511. Telemetry: I have personally reviewed and interpreted the telemetry from the last 24 hours. Resultsshow sinus bradycardia with HR 50s, PVCs, heart rate climbs to 70s with activity.. Imaging: [facility] 04/18/23 Conclusions: * Nonobstructive coronary artery [...] motion has increased. CTA PE protocol at [facility]- no PE but showed small [...] acute aortopathy. 4. No acute pulmonary findings. [facility] 06/09/2021-RA 4, PA 38/15 (24) PCWP 11, CO/CI 3.14/1.6. [facility] 08/30/2019-normal coronary arteries. Assessment & Plan: [...] disease secondary to obesity who presented to [facility] on 04/16 with chest pain responsive to SL NTG. Troponin ~500x2. Transferred to [facility] for further evaluation. Troponin at [facility], 24>23. Reports exertional chest pressure and dyspnea [...] continues. Diet: Daily Healthy Menu Choices/Cardiac diet ([facility]-Diet) 2 GM NA; 2000 mL FLUID DVT Prophylaxis: DOAC Code status: Attempt Cardiopulmonary Resuscitation - Inpatient Disposition: Discharge Location: [facility] Basic Mobility Raw Score: 24 PT: OT: PCP JOCY Franco [phone] Discussed with MD Carrol Aly PA-C APP1 Pager: [phone] 04/19/2023 * Nikkie Lew RCP - 04/18/2023 [...] note were not included. CARDIOLOGY APP1 - [facility] DAILY PROGRESS NOTE Page [phone] to reach a provider 28/09 Admit Date: [...] breathlessness. Awaiting cardiac catheterization potentially today if Vinyl Cutter availability allows.She remains on ACS therapies. Medications: [...] motion has increased. CTA PE protocol at [facility]- no PE but showed small [...] lung disease secondary to obesity presents from [facility] with complains of exertional chest [...] or NTG drip if ongoing chest pain -C 04/18 depending on Vinyl Cutter availability. #Hx of pAfib #Hx of AVNRT [...] Cardiopulmonary Resuscitation - Inpatient Disposition: Discharge Location: [facility] Basic Mobility Raw Score: 24 PT: OT: PCP JOCY Franco [phone] Discussed with MD Kurt Sheppard PA-C APP1 pager [phone] 04/18/2023 * Kurt Silveira PA - 04/17/2023 7:15 AM EST Images from the original note were not included. CARDIOLOGY APP1 - [facility] DAILY PROGRESS NOTE Page [phone] to reach a provider 28/09 Admit Date: [...] PROBNP -- 867* Endocrine Recent Labs 04/17/23 03302/08/23 2208 09/27/22 0307 09/26/22 1750 TSH 5.93* 4.00 -- 3.02 HA1C -- -- 5.6 -- No results for input(s): CHLPL, TRIG, HDL, LDLCHOL, CHOLHDL in the last 168 hours. Recent Labs 04/17/23332 GLUCOSE 89 Latest Reference Range & Units 02/09/23 03:55 04/17/23 03:33 Sed Rate 2 - 39 mm/hr 15 12 CRP <=4.9 mg/L <3.0 <3.0 OSH [facility] troponin ~500. EKG: Sinus bradycardia, [...] motion has increased. CTA PE protocol at [facility]- no PE but showed small [...] PA 38/15 (24) PCWP 11, CO/CI 3.14/1.6. [facility] 08/30/2019-normal coronary arteries. Assessment & Plan: [...] lung disease secondary to obesity presents from [facility] with complains of exertional chest [...] or NTG drip if ongoing chest pain -C 04/18 or 04/19 depending on Vinyl Cutter availability. #Hx of pAfib #Hx of AVNRT sp EPS and Ablation - hold eliquis. Last taken on 04/16/23 am. - Continue IV heparin. # Hx of PE- continue with IV heparin Diet: No diet orders on file DVT Prophylaxis: DOAC Code status: Attempt Cardiopulmonary Resuscitation - Inpatient Disposition: Discharge Location: [facility] Basic Mobility Raw Score: 14 PT: OT: PCP JOCY Franco [phone] Discussed with MD Kurt Sheppard PA-C APP1 pager [phone] 04/17/2023 documented in this encounter H&P Notes [...] SVTablation on 04/01/[address] Tovar on [facility], restrictive lung disease secondary to obesity presents from [facility] with complains of chest discomfort that started overnight. The patient has been experiencing ongoing chest pain, prompting admission on 02/11/23 primarily due to concerns about a NSTEMI indicated by elevated troponin levels and EKG changes noted at OSH. However, the observed EKG changes remained largely consistent with previous recordings. Troponin levels at [facility] showed a plateau [...] again 10/15, improving with sublingua Nitro. 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 fluticasone propionate (FLONASE) 50 mcg/actuation [place], Suspension 1 spray by Each Nare route [...] SVTablation on 04/01/[address] Tovar on [facility], restrictive lung disease secondary to obesity presents from [facility] with complains of chest discomfort [...] if hypotensive / cardiogenic shock / inferior [place] / sildenafil within past 24 hours) - [...] Notes * Care Management Discharge - Jorge Veloz, RN - 04/22/2023 4:21 PM EST CARE [...] (see comments), grab bar - tub/shower (CP[facility]) DME Needed at Discharge: N/A Patient is insured through: Primary Insurance: [employer] [place] Pay[place] [employer] [place] / Plan[place] / Product Type: *No Product type* / Secondary Insurance: N/A Prescription Coverage: Yes This plan was formulated with input from patient and team. All are in agreement with plan. * Consult Note - Maegan Mike APRN - 04/22/2023 10:38 AM EST Images from the original note were not included. [facility] [place] [address] INPATIENT CARDIOLOGY CONSULT PROGRESS NOTE Interval events: [...] with MD Maegan De Leon, ROM Pager [phone] 04/22/2023 Associated attestation - Jaspreet Kinsey MD [...] Tatum MSW - 04/20/2023 2:22 PM EST LABORER PIE BAKERY received a consult to support patient with financial concerns. LABORER PIE BAKERY met with patient and introduced self. Patient stated due to hospitalization, she has been out of work and feeling stress around not being able to pay bills. I have a car payment and other bills and it's like I have to choose which one to pay and which one not to pay. LABORER PIE BAKERY validated patient's stress around financial concerns. LABORER PIE BAKERY asked patient if she has applied for 24 [place] or any other state benefits. Patient stated that she has, but is over the household income criteria to qualify for benefits. Patient shared that she owns her home outright and mainly concerned about making her car payment and transportation home. MSWstated that care management will help arrange for a ride, if needed. LABORER PIE BAKERY provided patient with community resources such as the [employer], the [facility] Community Action phone number, and the [facility] [employer] contact info. LABORER PIE BAKERY available to support patient should anything else [...] Implemented as Appropriate) * Initial Assessments - Joreg Veloz RN - 04/19/2023 12:44 PM EST Office of Care Management Initial Assessment Jorge Veloz RN reviewed record and discussed patient with Care Team. Source of Information: Team, bedside nurse, medical record, and Patient Introduced self/reviewed role; services accepted. Admitted From: Transfer from another hospital Location: [facility] Reason for Hospitalization: chest pain and cough Covid Vaccination Status: 1st, 2nd & booster Last COVID test: Lab Results Component Value Date [id number] Not Detected 06/13/2021 Past medical History: Past [...] In the past 12 months has the [employer], gas, oil, or water [employer] threatened to shut off services in your home?: Yes ([employer] is currently threatening to shut off electricity [...] ([facility]) Home Address confirmed as: [address] [facility] [address] Social & Family Supports: All names listed below confirmed with patient as current and correct Extended Emergency Contact Information Primary Emergency Contact: Boby Madrigal [employer] Relation: Spouse Secondary Emergency Contact: TALI SHAH [...] Specific Information: N/A Health/Prescription Coverage: Primary Insurance: [employer] [facility] [place] Payor: [employer] [facility] [place] / Plan: [place] EXCHANGE / Product Type: *No Product type* / Secondary Insurance: N/A ; Prescription Coverage: Yes Preferred Pharmacy: [id number] - [place], [place] - [address] [facility] [address] [facility] [address] [facility] - [place], [place] - [address] [facility] [address] [facility] [address] [facility] [address] [place] Status: Patient is a : No Primary Care Provider confirmed: JOCY Franco [phone] Patient/Caregiver Goals of Treatment: home w / family when MR Potential Needs for Transition of Care: other (see comments) (LABORER PIE BAKERY support; pt's spouse was denied twice for [...] Concerns to be Addressed: financial/insurance, discharge planning; LABORER PIE BAKERY consult placed to discuss available resources Assessment: Patient is admitted to [facility] service for NSTEMI Plan: pending clinical course, but likely home w/o services when MR A member of the Care Management team will continue to monitor progress, follow for continuity of care and assist with transition of care planning. * Consult Note - Otis Rader MD - 04/19/2023 10:00 AM EST Images from the original note were not included. [facility] [place] [phone] INPATIENT CARDIOLOGY CONSULT NOTE Reason for Consult: [...] ACS with DAPT and heparin prior to [facility] 04/18, which was negative for any [...] Went to cathlab, came back ~1115am, s/p [facility] with no coronary artery disease seen. [...] for further details. JOCY Marie 04/17/2023 Pager [phone] * Plan of Care - Sudhakar Smith [...] AM EDT Tech [place] [address] [place] 10/08/2023 9:30 AM EDT Office [place] [address] MD [facility] [place] [place] [address] 10/21/2023 10:30 AM EDT App[place] [address] Mary Reyes APRN [facility] [place] [address] 10/21/2023 11:30 AM EDT Appointment Nuclear Medicine at [place] [phone] [facility] [place] [place] [address] 10/21/2023 12:30 PM EDT Appointment [place] [address] [facility] [place] [address] 10/21/2023 1:30 PM EDT Appointment [place] [address] [facility] [place] [place] [address] 10/21/2023 2:30 PM EDT Appointment [place] [address] [place] [address] 10/26/2023 4:00 PM EDT Office Visit Cardiology at [address] [phone] Jaspreet Kinsey MD [facility] [place] [address] 10/28/2023 9:00 AM EDT Office [place] [address] 10/29/2023 10:00 AM EDT Clinical [place] [address] 10/29/2023 10:15 AM EDT Procedure [place] [address] 11/01/2023 5:00 PM EDT Office [place] [phone] Selene Browning, PhD [facility] [place] [address] 11/22/2023 4:40 PM EDT Office Visit Cardiology at [address] [phone] Porsha Mcdaniels MD [facility] [place] [address] 12/13/2023 10:00 AM EDT Clinical [place] [address] Lucero Romero, AL[facility] [place] [place] [address] documented as of this encounter Procedures Procedure [...] have questions please contact the health care manager that requested your imaging first. ? 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 Following IV administration of 26.5 mCi technetium 99m sestamibi, SPECT-CT of the heart was obtained. Following IV injection of 8.8 mCi 87-yafphe-4-deoxyglucose (FDG) and a standard uptake of approximately [...] obtained. Following IV injection of 8.8 mCi 39-sdpbup-1-deoxyglucose (FDG) and astandard uptake of approximately 60 [...] who have questions please contactthe health care manager that requested your imaging first. Maegan Mike DEPUTY CHIEF COUNSEL IMG PET ORDERABLE S * MRI Cardiac [...] have questions please contact the health care manager that requested your imaging first. [...] who have questions please contactthe health care manager that requested your imaging first. Electronically signed by: Karon Nur MD, [facility] ([phone]), at 04/21/2023 5:33 PM Terrence Maloney MD IMG MRI ORDERABLES * Hemogram (04/21/2023 3:40 AM EST) WBC 7.1 4.0 - 9.5 x10(3)/[facility] LABORATORY RBC 4.59 4.00 - 5.21 x10(6)/[facility] LABORATORY Hemoglobin 14.4 11.7 - 15.5 g/dL [facility] Hematocrit 43.0 35.7 - 45.8 % [facility] MCV 93.7 82.6 - 94.4 [facility] MCH 31.4 27.1 - 32.0 pg [facility] MCHC 33.5 31.7 - 35.0 g/dL [facility] Platelets 221 145 - 357 x10(3)/[facility] RDWSD 43.5 37.0 - 46.0 [facility] RDWCV 12.6 11.5 - 14.1 % [facility] MPV 11.1 7.6 - 12.9 [facility] nRBC % Auto 0.0 % [facility] nRBC Abs Auto 0.000 0.000 - 0.000 x10(3)/[facility] Blood 04/21/2023 3:40 AM EST 04/21/2023 3:58 AM EST Narrative Resulting Agency Comment Spec In Lab Ailyn Knight MD HEMATOLOGY ORDERABLE S [facility] [place] [address] * (ABNORMAL) BMP w/fasting Glucose (04/21/2023 3:40 AM EST) Glucose Fasting 107(H) 65 - 99 mg/dL [facility] Comment: ?Fasting* Glucose Interpretive [...] 2009 BUN 20(H) 8 - 18 mg/dL [facility] [...] Knight MD CHEMISTRY ORDERABLES Performing Organization Address City/[facility]/ZIP Co de Phone Number [facility] [place] [address] * Magnesium (04/21/2023 3:40 AM EST) Magnesium 0.90 0.69 - 1.07 mmol/L [facility] Blood 04/21/2023 3:40 AM EST 04/21/2023 3:58 AM EST Narrative Resulting Agency Comment Spec In Lab Ailyn Knight MD CHEMISTRY ORDERABLES Performing Organization Address City/[facility] Co de Phone Number [facility] [place] [address] * (ABNORMAL) Troponin (04/20/2023 4:44 PM EST) Troponin-T HS 26(H) <=14 ng/L [facility] Comment: This patient's troponin T [...] troponin value can be found in the [facility] Test Catalog Troponin - [facility] Test Catalog Reference: [place] Definition of Myocardial Infarction. Journal of the [employer] College of Card[employer] 2018;72:3910-4180 Blood 04/20/2023 4:44 PM EST 04/20/2023 4:53 PM EST Narrative Resulting Agency Comment Spec In Lab Eufemia Copeland MD CHEMISTRY ORDERABL ES [facility] [place] [id number] * Duplex for DVT, Arm, Unilat (04/20/2023 4:22 PM EST) VB Text Report Department: Vascular Surgery Lab Patient: [id number] (LOIDA MADRIGAL) CPT: 29760 Referring Physician: TERRENCE MALONEY ?? Phone: Indications: [...] PM EST) Troponin-T HS 27(H) <=14 ng/L [facility] Comment: This patient's troponin T [...] troponin value can be found in the [facility] Test Catalog Troponin - [facility] Test Catalog Reference: Fourth [place] Definition of Myocardial Infarction. Journal of the [employer] College of Cardiology 2018;72:5128-6620 Blood 04/20/2023 1:47 PM EST 04/20/2023 2:18 PM EST Narrative Resulting Agency Comment Spec In Lab Eufemia Copeland MD CHEMISTRY ORDERABL ES Performing Organization Address City/[facility]/ZIP Co de Phone Number [facility] [place] [address] * (ABNORMAL) Troponin (04/20/2023 10:48 AM EST) Troponin-T HS 24(H) <=14 ng/L [facility] Comment: This patient's troponin T [...] troponin value can be found in the [facility] Test Catalog Troponin - [facility] Test Catalog Reference: Fourth [place] Definition of Myocardial Infarction. Journal of the [employer] College of Cardiology 2018;72:9959-2579 Blood 04/20/2023 10:4 8 AM EST 04/20/2023 11:03 AM EST Narrative Resulting Agency Comment Spec In Lab Eufemia Copeland MD CHEMISTRY ORDERABL ES [facility] [place] [address] * EKG 12 Lead (04/20/2023 10:23 AM EST) Ventricular rate 60 BPM MUSE SYSTEM Atrial Rate 60 BPM MUSE SYSTEM P-R Interval 170 ms MUSE SYSTEM QRS Duration 86 ms MUSE SYSTEM Q-T Interval 470 ms MUSE SYSTEM QTC Calculated (Bezet) 470 ms MUSE SYSTEM Calculated P [place] 39 degrees MUSE SYSTEM Calculated R [place] 63 degrees MUSE SYSTEM Calculated T [place] -16 degrees MUSE SYSTEM INTERPRETATION Normal sinus [...] leads Confirmed by MD Eli, Manish [place] ([id number]) on 04/22/2023 12:10:07 PM MUSE SYSTEM 04/20/2023 10:2 3 AM EST 04/22/2023 12:10 PM EST Terrence Maloney MD ECG ORDERABLES MUSE SYSTEM * Hemogram (04/20/2023 3:11 AM EST) WBC 6.6 4.0 - 9.5 x10(3)/[facility] RBC 4.59 4.00 - 5.21 x10(6)/[facility] Hemoglobin 14.2 11.7 - 15.5 g/dL [facility] Hematocrit 42.7 35.7 - 45.8 % [facility] MCV 93.0 82.6 - 94.4 fL [facility] MCH 30.9 27.1 - 32.0 pg [facility] MCHC 33.3 31.7 - 35.0 g/dL [facility] Platelets 231 145 - 357 x10(3)/[facility] RDWSD 43.6 37.0 - 46.0 fL [facility] RDWCV 12.6 11.5 - 14.1 % [facility] MPV 11.0 7.6 - 12.9 fL [facility] nRBC % Auto 0.0 % [facility] nRBC Abs Auto 0.000 0.000 - 0.000 x10(3)/[facility] Blood 04/20/2023 3:11 AM EST 04/20/2023 3:24 AM EST Narrative Resulting Agency Comment Spec In Lab Ailyn Knight MD HEMATOLOGY ORDERABLE S [facility] [place] [address] * (ABNORMAL) BMP w/fasting Glucose (04/20/2023 3:11 AM EST) Glucose Fasting 107(H) 65 - 99 mg/dL [facility] Comment: ?Fasting* Glucose Interpretive [...] 2009 BUN 20(H) 8 - 18 mg/dL [facility] Creatinine 1.05 0.70 - 1.20 mg/dL [facility] Estimated GFR 63 >=60 mL/min/1. 73 m?? [facility] Knight MD CHEMISTRY ORDERABLES Performing Organization Address City/[facility] Co de Phone Number [facility] [place] [address] * Magnesium (04/20/2023 3:11 AM EST) Pathologist [facility] Magnesium 0.91 0.69 - 1.07 mmol/L [facility] Blood 04/20/2023 3:11 AM EST 04/20/2023 3:24 AM EST Narrative Resulting Agency Comment Spec In Lab Ailyn Knight MD CHEMISTRY ORDERABLES Performing Organization Address [facility] Co de Phone Number [facility] [place] [address] * Respiratory Panel PCR (04/19/2023 2:05 PM EST) Pathologist [facility] Resp Panel Source EDUCATIONAL [employer] Swab MA RY [facility] Resp Panel PCR Negative Negative [facility] Comment: Respiratory Panels are performed on the Inteli[employer], using multiplexed PCR nucleic acid detection. ??Negative results do not preclude respiratory infection and should not be used as the sole basis for diagnosis, treatment or other management decisions. Adenovirus Not Detected Not Detected [facility] Coronavirus HKU1 Not Detected Not Detected [facility] Coronavirus NL63 Not Detected Not Detected [facility] Coronavirus 229E Not Detected Not Detected [facility] Coronavirus OC43 Not Detected Not Detected [facility] SARS-CoV-2 Not Detected Not Detected [facility] Comment: Testing for SARS-CoV-2 (Severe acute respiratory syndrome coronavirus 2) to aid in the diagnosis of COVID-19 is performed using the BioFire Respiratory Panel 2.1 ([employer]) as authorized by the FDA issued Emergency Use Authorization (EUA). This panel also tests for multiple other viral and bacterial pathogens. This assay is intended for In-vitro Diagnostic (IVD) use with nasopharyngeal swabs in viral transport media. The assay is performed based on the instructions for use and additional guidance provided by the FDA. Testing is performed in laboratories within the [facility], each of which is certified under [...] fact sheets at the following FDA website: https://www.fda.gov/medical-devices/cekrnfxrylf-vyytydj-9961-vgqqb-03-kegsbfcil- use-a ovdijfwhogynb-hcubith-inaivia/lmwyj-xmffixobrbl-vzzf Human Metapneumovirus Not Detected Not Detected [facility] Human Rhino/Enterovirus Not Detected Not Detected [facility] Influenza A Not Detected Not Detected [facility] Influenza B Not Detected Not Detected [facility] Parainfluenza 1 Not Detected Not Detected [facility] Parainfluenza 2 Not Detected Not Detected [facility] Parainfluenza 3 Not Detected Not Detected [facility] Parainfluenza 4 Not Detected Not Detected [facility] Respiratory Syncytial Virus Not Detected Not Detected [facility] Chlamydophila pneumoniae Not Detected Not Detected [facility] Mycoplasma pneumoniae Not Detected Not Detected [facility] Nasopharyngeal Swab Other / Unknown 04/19 2:05 PM EST 04/19/2023 3:16 PM EST Narrative Resulting Agency Comment Spec In Lab Carrol SANDRA MICROBIOLOGY - GENER AL ORDERABLES Performing Organization Address City/[facility] Co de Phone Number [facility] [place] [address] * (ABNORMAL) Urine culture (04/19/2023 10:25 AM EST) Urine Culture 10,000-49,000 cfu/ml mixed mucosal elmer Note: Culture shows multiple bacterial species suggesting mucosal contamination. (A) [facility] Clean Catch Urine 04/19/2023 10:25 AM EST 04/19/2023 12:49 PM EST Narrative Resulting Agency Comment Spec In Lab Carrol SANDRA MICROBIOLOGY - GENER AL ORDERABLES [facility] [place] [address] * (ABNORMAL) Urinalysis Microscopic Exam (04/19/2023 10:25 AM EST) RBC UA 1 0 - 4 /HPF [facility] WBC UA 10(H) 0 - 5 /HPF [facility] Squam Epith UA 4 <=4 /HPF [facility] Hyaline Cast UA 1 0 - 2 /LPF [facility] Clean Catch Urine 04/19/2023 10:25 AM EST 04/19/2023 11:08 AM EST Narrative Resulting Agency Comment Spec In Lab Carrol SANDRA URINE ORDERABLES Performing Organization Address [facility] Co de Phone Number [facility] [place] [address] * (ABNORMAL) Urinalysis with reflex Culture (04/19/2023 10:25 AM EST) Glucose UA >=1000(Crit ical) Negative mg/dL [facility] Comment: Urinalysis result NOT critical without a combination of Glucose greater than or equal to 500 mg/dL AND Ketones greater than or equal to 80 mg/dL Protein UA Negative Negative mg/dL [facility] Bilirubin UA Negative Negative mg/dL [facility] Comment: Clinical correlation required for positive Urine Bilirubin results as false positive may occur with some drugs and drug related products. If a false positive is suspected a serum total bilirubin should be considered if clinically indicated. Urobilinogen UA Normal Normal mg/dL [facility] pH UA 5.5 5.0 - 8.0 [facility] Blood UA Negative Negative mg/dL [facility] Ketones UA Negative Negative mg/dL [facility] Nitrite UA Negative Negative [facility] Leukocytes UA Small(A) Negative mcL [facility] Appearance UA Clear Clear [facility] Spec [place] UA 1.024 1.005 - 1.030 [facility] Color UA Yellow Yellow [facility] Culture Reflexed Yes LAZARUS Machado [facility] Clean Catch Urine 04/19/2023 10:25 AM EST 04/19/2023 11:08 AM EST Narrative Resulting Agency Comment Spec In Lab Ailyn Knight MD URINE ORDERABLES [facility] [place] [address] * Arterial Duplex Arm, Unilat (04/19/2023 9:40 AM EST) VB Text Report Department: Vascular Surgery Lab Patient: [id number] (LOIDA MADRIGAL) CPT: 41009 Referring Physician: AILYN KNIGHT ?? Phone: Indications: [...] AM EST) WBC 7.5 4.0 - 9.5 x10(3)/[facility] RBC 4.86 4.00 - 5.21 x10(6)/[facility] Hemoglobin 14.8 11.7 - 15.5 g/dL [facility] Hematocrit 45.5 35.7 - 45.8 % [facility] MCV 93.6 82.6 - 94.4 [facility] MCH 30.5 27.1 - 32.0 pg [facility] MCHC 32.5 31.7 - 35.0 g/dL [facility] Platelets 240 145 - 357 x10(3)/[facility] [place]DWSD 43.8 37.0 - 46.0 [facility] RDWCV 12.7 11.5 - 14.1 % [facility] MPV 11.0 7.6 - 12.9 [facility] nRBC % Auto 0.0 % [facility] nRBC Abs Auto 0.000 0.000 - 0.000 x10(3)/mcL [facility] Blood 04/19/2023 2:40 AM EST 04/19/2023 2:57 AM EST Narrative Resulting Agency Comment Spec In Lab Ailyn Knight MD HEMATOLOGY ORDERABLE S [facility] [place] [address] * (ABNORMAL) BMP w/fasting Glucose (04/19/2023 2:40 AM EST) Glucose Fasting 106(H) 65 - 99 mg/dL [facility] Comment: ?Fasting* Glucose Interpretive [...] 2009 BUN 22(H) 8 - 18 mg/dL [facility] [...] Knight MD CHEMISTRY ORDERABLES Performing Organization Address City/[facility]/ZIP Co de Phone Number [facility] [place] [address] * Magnesium (04/19/2023 2:40 AM EST) Magnesium 0.97 0.69 - 1.07 mmol/L [facility] Blood 04/19/2023 2:40 AM EST 04/19/2023 2:57 AM EST Narrative Resulting Agency Comment Spec In Lab Ailyn Knight MD CHEMISTRY ORDERABLES Performing Organization Address [facility] Co de Phone Number [facility] [place] [address] * CARDIAC CATHETERIZATION (04/18/2023 11:05 AM EST) Anatomical Region Laterality Modality Other Narrative 04/19/2023 6:57 AM EST ?[facility] ? Cardiac Catheterization/Intervention Report ? Patient Name: Neisha, Loida ? Procedure Date: 04/18/2023 ? A #: [id number] ? Primary Physician: Young, Dustin N ? Case #: [id number] ? File Name: [id number] ? Catheterization Order Number: [id number] ? [facility] ? Final Report [place], [place] ? Patient Name: ? Loida Neisha ? ID#: ?[id number] ? : ?1970 ? Procedure Date: ? April 18, 2023 ?Case #: ? [id number] ? Room: ? 6 ? Case Physician: [...] was Urgent. 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 [...] angiography and left heart ?catheterization. ? Dustin Carrasco, M.D. ? Electronically Signed by: Dustin Carrasco M.D. ? Report Finalized: 04/18/2023 ??12:13 ? Report Last Ammended: 05/03/2023 ??07:49 ? Procedure Note Dustin Carrasco MD - 05/03/2023 [facility] Cardiac Catheterization/Intervention Report Patient Name: Loida Madrigal Procedure Date: 04/18/2023 A #: [id number] Primary Physician: Dustin Carrasco Case #: [id number] File Name: [id number] Catheterization Order Number: [id number] [facility] FinalReport [place], [place] Patient Name: Loida Madrigal ID#:[id number] :1970 Procedure Date: April 18, 2023 Case [...] patient was designated as ASA Class III. [facility]: [...] procedure was Urgent. 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 [...] units of heparin were administered. A total dd813st of Omnipaque were opened, 65cc of Omnipaque were administered cbq89mc of Omnipaque were wasted. Radiation: Fluoro time [...] AM EST) Heparin UFH Level 0.39 IU/mL [facility] Comment: [...] Lab Terrence Maloney MD HEMATOLOGY ORDERABLE S [facility] [place] [address] * Differential, Automated (04/18/2023 2:10 AM EST) Neutrophils % 51.4 % [facility] Neutr Abs (ANC) 3.43 1.70 - 6.10 x10(3)/[facility] Lymphocytes % 33.8 % [facility] Lymphocytes Abs 2.2 0.9 - 3.2 x10(3)/[facility] Monocytes % 9.9 % [facility] Monocyte Abs 0.7 0.3 - 0.9 x10(3)/[facility] Eosinophils % 3.9 % [facility] Eosinophils Abs 0.3 0.0 - 0.4 x10(3)/[facility] Basophils % 0.8 % [facility] Basophils Abs 0.0 0.0 - 0.1 x10(3)/[facility] Immature Gran % 0.20 % [facility] Comment: Immature granulocytes(IG's)percentage and absolute count will include metamyelocytes, myelocytes, and promyelocytes. Blood smears from CBCs yielding IG's will be scanned manually for concordance. If this scan disagrees with the automated IG or if promyelocytes are noted, a manual differential will be performed. Shonda Gran Abs 0.01 0.00 - 0.04 x10(3)/[facility] Blood 04/18/2023 2:10 AM EST 04/18/2023 2:44 AM EST Narrative Resulting Agency Comment Spec In Lab Terrence Maloney MD HEMATOLOGY ORDERABLE S [facility] [place] [address] * Hemogram (04/18/2023 2:10 AM EST) WBC 6.7 4.0 - 9.5 x10(3)/[facility] RBC 4.93 4.00 - 5.21 x10(6)/[facility] Hemoglobin 15.2 11.7 - 15.5 g/dL [facility] Hematocrit 44.9 35.7 - 45.8 % [facility] MCV 91.1 82.6 - 94.4 fL [facility] MCH 30.8 27.1 - 32.0 pg [facility] MCHC 33.9 31.7 - 35.0 g/dL [facility] Platelets 233 145 - 357 x10(3)/[facility] RDWSD 42.0 37.0 - 46.0 [facility] RDWCV 12.8 11.5 - 14.1 % [facility] MPV 11.3 7.6 - 12.9 [facility] nRBC % Auto 0.0 % [facility] nRBC Abs Auto 0.000 0.000 - 0.000 x10(3)/[facility] Blood 04/18/2023 2:10 AM EST 04/18/2023 2:44 AM EST Narrative Resulting Agency Comment Spec In Lab Terrence Maloney MD HEMATOLOGY ORDERABLE S Performing Organization Address City/State/[facility] Co de Phone Number [facility] [place] [address] * Heparin (unfractionated) Level (04/18/2023 2:10 AM EST) Pathologist [facility] Heparin UFH Level 0.50 IU/mL [facility] Comment: [...] Lab Terrence Maloney MD HEMATOLOGY ORDERABLE S [facility] [place] [address] * (ABNORMAL) BMP w/fasting Glucose (04/18/2023 2:10 AM EST) Glucose Fasting 98 65 - 99 mg/dL [facility] Comment: ?Fasting* Glucose Interpretive [...] 2009 BUN 23(H) 8 - 18 mg/dL [facility] Creatinine 1.18 0.70 - 1.20 mg/dL [facility] Sodium 143 135 - 145 mmol/L [facility] Knight MD CHEMISTRY ORDERABLES Performing Organization Address City/[facility] Co de Phone Number [facility] [place] [address] * Magnesium (04/18/2023 2:10 AM EST) Magnesium 1.02 0.69 - 1.07 mmol/L [facility] Blood 04/18/2023 2:10 AM EST 04/18/2023 2:44 AM EST Narrative Resulting Agency Comment Spec In Lab Ailyn Knight MD CHEMISTRY ORDERABLES Performing Organization Address [facility]/ZIP Co de Phone Number [facility] [place] [address] * LDL Cholesterol, Direct (04/18/2023 2:10 AM EST) LDL Chol Direct 105 mg/dL [facility] Comment: Lowest Risk: <100 mg/dL Lower Risk: 100-129 mg/dL Borderline High Risk: 130-159 mg/dL High Risk: 160-189 mg/dL Very High Risk: >jw=894 mg/dL Blood 04/18/2023 2:10 AM EST 04/18/2023 2:44 AM EST Narrative Resulting Agency Comment Spec In Lab Terrence Maloney MD CHEMISTRY ORDERABLES Performing Organization Address [facility] Co de Phone Number [facility] [place] [address] * Hemoglobin A1c (04/18/2023 2:10 AM EST) Hemoglobin A1C 5.6 4.3 - 5.6 % [facility] Comment: Reference Range: 4.3 [...] Mellitus, Diabetes Care 2013; 36: Suppl. 1, F57-77 Est Avg Gluc 115 mg/dL [facility] Blood 04/18/2023 2:10 AM EST 04/18/2023 2:44 AM EST Narrative Resulting Agency Comment Spec In Lab Terrence Maloney MD CHEMISTRY ORDERABLES Performing Organization Address [facility] Co de Phone Number [facility] [place] [address] * Lipid Panel (Reflex Direct LDL) (04/18/2023 2:10 AM EST) Chol, Total 173 mg/dL [facility] Comment: Lower Risk: <200 mg/dL Average Risk: 200-239 mg/dL Higher Risk: >ng=127 mg/dL Triglycerides 174 mg/dL [facility] Comment: Average Risk/Lower Risk: <150 mg/dL Borderline High Risk: 150-199 mg/dL High Risk: 200-499 mg/dL Very High Risk: >st=766 mg/dL HDL 44 mg/dL [facility] Comment: Males: ?? Higher Risk: <40 mg/dL Females: ?? Higher Risk: <50 mg/dL LDL Cholesterol 94 mg/dL [facility] Comment: Lowest Risk: <100 mg/dL Lower Risk: 100-129 mg/dL Borderline High Risk: 130-159 mg/dL High Risk: 160-189 mg/dL Very High Risk: >zh=186 mg/dL Chol/HDL Ratio 3.9 ratio [facility] Lipid Interpretation See Note [facility] Comment: Lipid management should be guided by a patient? s ASCVD risk, goals and preferences. ACC/AHA Guidelines recommend high intensity statin if clinical ASCVD or LDL greater than or equal to 190 mg/dL. http://[employer] Adults aged 40-75 with LDL 70-189 mg/dL should have their 10 year ASCVD risk estimated with the ACC/AHA ASCVD risk automotive tire tester http://tools.acc.org/NHDQN-Obkf-Uhwwqofvi/ Statin should be discussed if risk greater [...] In Lab Terrence Maloney MD CHEMISTRY ORDERABLES [facility] [place] [address] * POCT Glucose (04/17/2023 7:44 PM EST) [facility] POC Glucose 128 65 - 199 mg/dL [facility] Comment: Supplemental ranges: <140 mg/dL before meals <180 mg/dL all other times of the day Blood 04/17/2023 7:44 PM EST 04/17/2023 7:44 PM EST Ailyn Knight MD POINT OF CARE TEST O RDERABLES Performing Organization Address [facility] Co de Phone Number [facility] [place] [address] * (ABNORMAL) Heparin (unfractionated) Level (04/17/2023 6:01 PM EST) [facility] Heparin UFH Level 1.14(Crit ical) IU/mL [facility] [...] MD HEMATOLOGY ORDERABLE S Performing Organization Address [facility] Co de Phone Number [facility] [place] [address] * (ABNORMAL) Heparin (unfractionated) Level (04/17/2023 12:45 PM EST) Heparin UFH Level 1.39(Crit ical) IU/mL [facility] Comment: Critical Result called by ?? OLIVNFLCASSI CRITICAL Results read back by: ? Marta [...] Lab Ailyn Knight MD HEMATOLOGY ORDERABLE S [facility] [place] [address] * ECHO LMTD W CONTRAST W LMTD SPEC DOPP COLOR DOPP (04/17/2023 11:59 AM EST) EF 58 HEARTLAB SYSTEM Anatomical Region Laterality Modality Cardiac Other 04/17/2023 10:2 4 AM EST Narrative 04/17/2023 12:09 PM EST 1 [place] [address] ? Echocardiogram Report Name: LOIDA MADRIGAL ? Study Date: 04/17/2023 10:24 AMBP: 114/64 mmHg ? Patient Location: : 1970 ? Height: 160 cm ? Account: [id number] Age: 53 yrs ? Weight: 98 kg Gender: Female ?BSA: 2.0 m2 Ordering Physician: TERRENCE MALONEY Referring Physician: TERRENCE MALONEY Performed By: HAIM Becerra Reason For Study: Chest pain; NSTEMI Exam Location: [facility]. Interpretation Summary Left ventricle is normal in size and wall thickness. Normal global systolic function with regional wall motion abnormalities as ascribed on the anterior/anterolateral aspect. Right ventricle is normal in size and systolic function. No significant cardiac valve findings. No pericardial effusion. Compared to prior study dated 02/09/2023, the extent of the anterior abnormal wall motion has increased. Procedure Limited - 76985. Image enhancement Optison was used for left [...] Note Jaspreet Kinsey MD - 04/17/2023 1 [place] [address] Echocardiogram Report Name: LOIDA MADRIGAL Study Date: 0:24 AMBP: 114/64 mmHg Patient Location: : 1970 Height: 160 cm Account: [id number] Age: 53 yrs Weight: 98 kg Gender: Female BSA: 2.0 m2 Ordering Physician: TERRENCE MLAONEY Referring Physician: TERRENCE MALONEY Performed By: HAIM Becerra Reason For Study: Chest pain; NSTEMI Exam Location: [facility]. Interpretation Summary Left ventricle is normal in size and wall thickness. Normal globalsystolic function with regional wall motion abnormalities as ascribed on the anterior/anterolateral aspect. Right ventricle is normal in size and systolic function. No significant cardiac valve findings. No pericardial effusion. Compared to prior study dated 02/09/2023, the extent of the anteriorabnormal wall motion has increased. Procedure Limited - 93020. Image enhancement Optison was used for left [...] EST) Heparin UFH Level 1.41(Crit ical) IU/mL [facility] Comment: Critical Result called by ?? ANASTACIO CRITICAL Results read back by: ? Marta Nilton at 2023-04-17 07:36:05 Heparin (anti-Xa) levels should [...] Lab Terrence Maloney MD HEMATOLOGY ORDERABLE S [facility] [place] [address] * (ABNORMAL) Troponin (04/17/2023 6:43 AM EST) Troponin-T HS 23(H) <=14 ng/L [facility] Comment: This patient's troponin T [...] troponin value can be found in the [facility] Test Catalog Troponin - [facility] Test Catalog Reference: Fourth [place] Definition of Myocardial Infarction. Journal of the Indian College of Cardiology 2018;72:5531-8283 Blood 04/17/2023 6:43 AM EST 04/17/2023 6:52 AM EST Narrative Resulting Agency Comment Spec In Lab Terrence Maloney MD CHEMISTRY ORDERABLES [facility] [place] [id number] * EKG 12 Lead (04/17/2023 3:41 AM EST) Ventricular rate 47 BPM MUSE SYSTEM Atrial Rate 47 BPM MUSE SYSTEM P-R Interval 186 ms MUSE SYSTEM QRS Duration 90 ms MUSE SYSTEM Q-T Interval 578 ms MUSE SYSTEM QTC Calculated (Bezet) 511 ms MUSE SYSTEM Calculated P [place] 24 degrees MUSE SYSTEM Calculated R [place] 23 degrees MUSE SYSTEM Calculated T [place] 27 degrees MUSE SYSTEM INTERPRETATION Sinus bradycardia with Premature atrial complexes Possible Left atrial enlargement Possible Lateral infarct , age undetermined Prolonged QT Abnormal ECG When compared with ECG of 01-APR-2023 12:28, Premature atrial complexes are now Present Vent. rate has decreased BY ??33 BPM Nonspecific T wave abnormality, improved in Anterior leads Confirmed by MD Angelo Danette ([id number]) on 04/20/2023 8:28:40 PM MUSE SYSTEM 04/17/2023 3:41 AM EST 04/20/2023 8:28 PM EST Terrence Maloney MD ECG ORDERABLES MUSE SYSTEM * Differential, Automated (04/17/2023 3:33 AM EST) Neutrophils % 54.4 % [facility] Neutr Abs (ANC) 4.02 1.70 - 6.10 x10(3)/[facility] Lymphocytes % 32.0 % [facility] Lymphocytes Abs 2.4 0.9 - 3.2 x10(3)/[facility] Monocytes % 8.7 % [facility] Monocyte Abs 0.6 0.3 - 0.9 x10(3)/[facility] Eosinophils % 3.9 % [facility] Eosinophils Abs 0.3 0.0 - 0.4 x10(3)/[facility] Basophils % 0.7 % [facility] Basophils Abs 0.0 0.0 - 0.1 x10(3)/[facility] Immature Gran % 0.30 % [facility] Comment: Immature granulocytes(IG's)percentage and absolute count will include metamyelocytes, myelocytes, and promyelocytes. Blood smears from CBCs yielding IG's will be scanned manually for concordance. If this scan disagrees with the automated IG or if promyelocytes are noted, a manual differential will be performed. Shonda Gran Abs 0.02 0.00 - 0.04 x10(3)/[facility] Blood 04/17/2023 3:33 AM EST 04/17/2023 3:42 AM EST Narrative Resulting Agency Comment Spec In Lab Terrence Maloney MD HEMATOLOGY ORDERABLE S [facility] [place] [address] * Hemogram (04/17/2023 3:33 AM EST) WBC 7.4 4.0 - 9.5 x10(3)/[facility] RBC 4.79 4.00 - 5.21 x10(6)/[facility] Hemoglobin 14.8 11.7 - 15.5 g/dL [facility] Hematocrit 44.3 35.7 - 45.8 % [facility] MCV 92.5 82.6 - 94.4 fL [facility] MCH 30.9 27.1 - 32.0 pg [facility] MCHC 33.4 31.7 - 35.0 g/dL [facility] Platelets 233 145 - 357 x10(3)/[facility] RDWSD 43.4 37.0 - 46.0 [facility] RDWCV 12.7 11.5 - 14.1 % [facility] MPV 11.0 7.6 - 12.9 [facility] nRBC % Auto 0.0 % [facility] nRBC Abs Auto 0.000 0.000 - 0.000 x10(3)/[facility] Blood 04/17/2023 3:33 AM EST 04/17/2023 3:42 AM EST Narrative Resulting Agency Comment Spec In Lab Terrence Maloney MD HEMATOLOGY ORDERABLE S [facility] [place] [address] * Sedimentation rate (04/17/2023 3:33 AM EST) Sed Rate 12 2 - 39 mm/hr [facility] Comment: Effective February 15, 2019 new capillary photometric technology has resulted in a change in reference ranges. It is recommended that each ESR result be reviewed with its own age appropriate reference range. Blood 04/17/2023 3:33 AM EST 04/17/2023 3:42 AM EST Narrative Resulting Agency Comment Spec In Lab Terrence Maloney MD HEMATOLOGY ORDERABLE S Performing Organization Address City/[facility]/ZIP Co de Phone Number [facility] [place] [address] * CRP, acute inflammation (04/17/2023 3:33 AM EST) CRP <3.0 <=4.9 mg/L [facility] Blood 04/17/2023 3:33 AM EST 04/17/2023 3:42 AM EST Narrative Resulting Agency Comment Spec In Lab Terrence Maloney MD CHEMISTRY ORDERABLES Performing Organization Address [facility] Co de Phone Number [facility] [place] [address] * (ABNORMAL) Troponin (04/17/2023 3:33 AM EST) Troponin-T HS 24(H) <=14 ng/L [facility] Comment: This patient's troponin T [...] troponin value can be found in the [facility] Test Catalog Troponin - [facility] Test Catalog Reference: Fourth [place] Definition of Myocardial Infarction. Journal of the [employer] College of Cardiology 2018;72:5687-4822 Blood 04/17/2023 3:33 AM EST 04/17/2023 3:42 AM EST Narrative Resulting Agency Comment Spec In Lab Terrence Maloney MD CHEMISTRY ORDERABLES Performing Organization Address [facility] de Phone Number [facility] [place] [address] * (ABNORMAL) APTT (04/17/2023 3:33 AM EST) PTT 40(H) 25 - 37 sec [facility] Comment: The PTT is NOT appropriate for heparin monitoring. Use the Anti-Xa level for heparin monitoring (HEP UFH) or LMWH monitoring (HEP LMW). A PTT less than 37 seconds generally indicates adequate hemostasis. Blood 04/17/2023 3:33 AM EST 04/17/2023 3:42 AM EST Narrative Resulting Agency Comment Spec In Lab Terrence Maloney MD HEMATOLOGY ORDERABLE S Performing Organization Address [facility] de Phone Number [facility] [place] [address] * (ABNORMAL) Prothrombin Time (04/17/2023 3:33 AM EST) PT 13.3(H) 9.4 - 12.5 sec [facility] INR 1.2 [facility] Comment: An INR <2.0 [...] MD HEMATOLOGY ORDERABLE S Performing Organization Address City/[facility] Co de Phone Number [facility] [place] [address] * Hepatic Function Panel (04/17/2023 3:33 AM EST) Total Protein 6.9 6.1 - 8.0 g/dL [facility] Albumin 4.2 3.2 - 5.2 g/dL [facility] AST Not Perf 0 - 30 [facility] Comment: Unable to quantitate due to sample hemolysis. ??Sample redraw suggested. Called by: Danny Bowles, Read back by: Nyla Cassidy, Date/Time:04/17/23 05:06. ALT 17 0 - 30 unit/L [facility] Alk Phos 59 35 - 105 unit/L [facility] Total Bilirubin 0.4 0.2 - 1.3 mg/dL [facility] Bili, Direct 0.1 0.0 - 0.3 mg/dL [facility] Blood 04/17/2023 3:33 AM EST 04/17/2023 3:42 AM EST Narrative Resulting Agency Comment Spec In Lab Terrence Maloney MD CHEMISTRY ORDERABLES Performing Organization Address [facility] Co de Phone Number [facility] [place] [address] * (ABNORMAL) pro-Brain Natriuretic Peptide (04/17/2023 3:33 AM EST) Pathologist [facility] ProBNP 867(H) <=124 pg/mL [facility] Blood 04/17/2023 3:33 AM EST 04/17/2023 3:42 AM EST Narrative Resulting Agency Comment Spec In Lab Terrence Maloney MD CHEMISTRY ORDERABLES Performing Organization Address [facility]/ZIP Co de Phone Number [facility] [place] [address] * (ABNORMAL) TSH (04/17/2023 3:33 AM EST) TSH 5.93(H) 0.27 - 4.20 mcIU/mL [facility] Comment: Reference Interval (mcIU/mL): Females: ??First Trimester: 0.23-3.88 ??Second Trimester: 0.22-3.90 ??Third Trimester: 0.44-4.66 Blood 04/17/2023 3:33 AM EST 04/17/2023 3:42 AM EST Narrative Resulting Agency Comment Spec In Lab Terrence Maloney MD CHEMISTRY ORDERABLES Performing Organization Address [facility] Co de Phone Number [facility] [place] [address] * Phosphorus (04/17/2023 3:33 AM EST) Pathologist [facility] Phosphorus 4.1 2.5 - 4.5 mg/dL [facility] Blood 04/17/2023 3:33 AM EST 04/17/2023 3:42 AM EST Narrative Resulting Agency Comment Spec In Lab Terrence Maloney MD CHEMISTRY ORDERABLES Performing Organization Address [facility] Co de Phone Number [facility] [place] [address] * Magnesium (04/17/2023 3:33 AM EST) Pathologist [facility] Magnesium 0.99 0.69 - 1.07 mmol/L [facility] Blood 04/17/2023 3:33 AM EST 04/17/2023 3:42 AM EST Narrative Resulting Agency Comment Spec In Lab Terrence Maloney MD CHEMISTRY ORDERABLES Performing Organization Address [facility] Co de Phone Number [facility] [place] [address] * (ABNORMAL) Basic Metabolic Panel (non-fasting) (04/17/2023 3:33 AM EST) Pathologist [facility] Glucose Lvl 89 65 - 199 mg/dL [facility] In Lab Terrence Maloney MD CHEMISTRY ORDERABLES [facility] [place] [address] * Film Library- Storage Only CT Chest (04/16/2023 12:00 AM EST) Narrative Dicom, Auditing User - 04/17/2023 3:00 AM EST This exam is auto-finalizing. It's purpose is for storage only. Polo SANDRA IM FILM LIBRARY ORD ERABLES documented in this [...] 81 mg, Oral, DAILY, First dose on 04/17/23 at 1430, Until Discontinued, Routine Given [...] on Wed04/19/23 at 1700, Until Discontinued, Routine 1617 (Given - Provider: Chilo Nickerson RN) 1736 [...] crush, chew, or suck on tablet., Routine 08 (Given - Provider: Chilo Nickerson RN) rOPINIRole (Requip) tablet 2 mg 2 mg, Oral, 2 TIMES DAILY, First dose on 04/17/23 at 0900, Until Discontinued, Routine 08 (Given - Provider: Chilo Nickerson RN)2010 [...] 1500, Routine 1518 (Given - Provider: Charity Jackson, ERWIN) PRN Medication Order 04/20/2023 04/21/2023 04/22/2023 acetaminophen [...] documented as of this encounter Care Teams Vice President Network Relationship Specialty Start Date End Date Polo Pearce PA [address] [place] [address] PCP - General Internal Medicine 06/09/21 documented as of this encounter
--- OUTSIDE RECORDS SUMMARY | 2023-10-02 22:44 | XMS_ITS | Encounter Summary ---
[place] [address] Care Team Providers Care Oiler Bander Name Role Phone Polo Pearce Primary Care Provider [phone] Reason for Visit * Diagnostic Test (Routine) - Closed Specialty Diagnoses / Procedures Referred By Jayant harris Referred To Contact Radiology Diagnoses Chest pain, unspecified type Procedures NM PET CT Cardiac Sarcoid Maegan Mike [facility] [place] [address] [place] [address] Referral ID Status Reason Start Date Expiration Date V isits Requested Visits Authorized [id number] Closed Specialty Service Requested 04/22/2023 10/20/2024 4 4 Encounter Details Date Type Department Care Team (Latest Contact Info) Description 04/30/2023 11:05 AM EST Hospital Encounter [place] [address] Maegan Mike [facility] [place] [address] Discharge Disposition: Home Social History [...] nightly as needed. empagliflozin (Jardiance) 10 mg TabletIndications:Director Security Risk Management neal heart failure with preserved ejection fraction Take 1 tablet by mouth daily. 90 tablet 1 06/11/2021 rOPINIRole (Requip) 1 mg Tablet Take 2 mg by mouth 2 times daily. 07/16/2020 loratadine (Claritin) 10 mg Tablet Take 10 mg by mouth daily as needed. fluticasone propionate (FLONASE) 50 mcg/actuation Doss, Suspension 1 spray by Each Nare route [...] AM EDT Tech [place] [address] Channing Escobedo [place] 10/08/2023 9:30 AM EDT Office [place] [address] MD [facility] [place] [address] 10/21/2023 10:30 AM EDT Appointment Nuclear Medicine at [place] [phone] Mary Reyes [facility] [place] [address] 10/21/2023 11:30 AM EDT Appointment Nuclear Medicine at [address] Mary Reyes [facility] [place] [address] 10/21/2023 12:30 PM EDT Appointment [place] [address] Mary Reyes [facility] [place] [address] 10/21/2023 1:30 PM EDT Appointment [place] [address] Mary Reyes [facility] [place] [address] 10/21/2023 2:30 PM EDT Appointment [place] [address] Mary Reyes [facility] [place] [address] 10/26/2023 4:00 PM EDT Office Visit Cardiology at [address] [place] [address] Jaspreet Kinsey MD [facility] [place] [address] 10/28/2023 9:00 AM EDT Office Visit [place] [address] 10/29/2023 10:00 AM EDT Clinical Support [place] [address] 10/29/2023 10:15 AM EDT Procedure visit [place] [address] 11/01/2023 5:00 PM EDT Office [place] [phone] Selene Browning, PhD [facility] [address] 11/22/2023 4:40 PM EDT Office Visit Cardiology at [address] [phone] Porsha Mcdaniels MD [facility] [address] 12/13/2023 10:00 AM EDT Clinical [place] [phone] [facility] [place] [address] documented as of this encounter Procedures Procedure [...] mCi documented in this encounter Care Teams Oiler Bander Relationship Specialty Start Date End Date Polo Pearce PA [address] [place] [address] PCP - General Internal Medicine 06/09/21 documented as of this encounter
--- OUTSIDE RECORDS SUMMARY | 2023-10-02 22:44 | XMS_ITS | Encounter Summary ---
[place] [address] Care Team Providers Care Intern Retail Name Role Phone Polo Pearce Primary Care Provider [phone] Reason for Referral * Diagnostic Test (Routine) - Closed Specialty Diagnoses / Procedures Referred By Jayant harris Referred To Contact Radiology Diagnoses Chest pain, unspecified type Procedures NM PET CT Cardiac Sarcoid Maegan Mike ICE CREAM FREEZER HELPER [facility] [place] [place] [address] [place] [address] Referral ID Status Reason Start Date Expiration Date V isits Requested Visits Authorized [id number] Closed Specialty Service Requested 04/22/2023 10/20/2024 4 4 Reason for Visit * Diagnostic Test (Routine) - Closed Specialty Diagnoses / Procedures Referred By Contjulita t Referred To Contact Radiology Diagnoses Chest pain, unspecified type Procedures NM PET CT Cardiac Sarcoid Maegan Mike ICE CREAM FREEZER HELPER [facility] [place] [address] [place] [address] Referral ID Status Reason Start Date Expiration Date V isits Requested Visits Authorized [id number] Closed Specialty Service Requested 04/22/2023 10/20/2024 4 4 Encounter Details Date Type Department Care Team (Latest Contact Info) Description 04/30/2023 11:01 AM EST Hospital Encounter [place] [address] Maegan Mike, [facility] [place] [address] Chest pain, unspecified type Discharge Disposition: Home Social History Tobacco Use Types Packs/Day Years Used Date Smoking Tobacco: Never Smokeless Tobacco: Never Alcohol Use Standard Drinks/Week Comments Never 0 (1 standard drink = 0.6 oz pur e alcohol) [facility] Utilities Answer Date Recorded In the [...] in a correction (including now)? No 04/19/2023 IPV Inpatient Questions [...] nightly as needed. empagliflozin (Jardiance) 10 mg TabletIndications:Insole And Heel Stiffener neal heart failure with preserved ejection fraction Take 1 tablet by mouth daily. 90 tablet 1 06/11/2021 rOPINIRole (Requip) 1 mg Tablet Take 2 mg by mouth 2 times daily. 07/16/2020 loratadine (Claritin) 10 mg Tablet Take 10 mg by mouth daily as needed. fluticasone propionate (FLONASE) 50 mcg/actuation [place], Suspension 1 spray by Each Nare route [...] Tech [place] [phone] [place] 10/08/2023 9:30 AM EDT Office Visit [place] [phone] MD [facility] [place] [address] 10/21/2023 10:30 AM EDT Appointment [place] [phone] Mary Reyes [facility] [place] [address] 10/21/2023 11:30 AM EDT Appointment [place] [phone] Mary Reyes [facility] [place] [address] 10/21/2023 12:30 PM EDT Appointment [place] [address] Mary Reyes [facility] [place] [address] 10/21/2023 1:30 PM EDT Appointment [place] [address] Mary Reyes ICE CREAM FREEZER HELPER [facility] [place] [address] 10/21/2023 2:30 PM EDT Appointment [place] [address] Mary Reyes ICE CREAM FREEZER HELPER [facility] [place] [address] 10/26/2023 4:00 PM EDT Office Visit Cardiology at [address] [phone] Jaspreet Kinsey MD [facility] [place] [address] 10/28/2023 9:00 AM EDT Office Visit [place] [address] 10/29/2023 10:00 AM EDT Clinical Support [place] [address] 10/29/2023 10:15 AM EDT Procedure visit [place] [address] 11/01/2023 5:00 PM EDT Office Visit [place] [address] Selene Browning, PhD [facility] [place] [address] 11/22/2023 4:40 PM EDT Office Visit Cardiology at [address] [phone] Porsha Mcdaniels MD [facility] [place] [address] 12/13/2023 10:00 AM EDT Clinical Support Gastroenterology at [facility] [place] [address] [facility] [place] [address] documented as of this encounter Procedures Procedure [...] who have questions please contact the health medication care manager that requested your imaging first. ? 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 Following IV administration of 26.5 mCi technetium 99m sestamibi, SPECT-CT of the heart was obtained. Following IV injection of 8.8 mCi 65-gbftas-4-deoxyglucose (FDG) and a standard uptake of approximately [...] obtained. Following IV injection of 8.8 mCi 75-qspbuq-2-deoxyglucose (FDG) and astandard uptake of approximately 60 [...] patients who have questions please contactthe health medication care manager that requested your imaging first. Maegan Mike APRN IMG PET ORDERABLE S * POCT Glucose (04/30/2023 12:19 PM EST) POC Glucose 79 65 - 199 mg/dL [facility] Comment: Supplemental ranges: <140 mg/dL before meals <180 mg/dL all other times of the day Blood 04/30/2023 12:1 9 PM EST 04/30/2023 12:19 PM EST Maegan Mike APRN POINT OF CARE LYNETTE T ORDERABLES [facility] [place] [address] documented in this encounter Visit Diagnoses Diagnosis [...] Arm documented in this encounter Care Teams Intern Retail Relationship Specialty Start Date End Date Polo Pearce PA [address] [place] [address] PCP - General Internal Medicine 06/09/21 documented as of this encounter
--- OUTSIDE RECORDS SUMMARY | 2023-10-02 22:44 | XMS_ITS | Encounter Summary ---
[place] [address] Care Team Providers Care Field Crop Farming Supervisor Name Role Phone Polo Pearce Primary Care Provider [phone] Reason for Visit * Diagnostic Test (Routine) - Closed Specialty Diagnoses / Procedures Referred By Jayant harris Referred To Contact Radiology Diagnoses Chest pain, unspecified type Procedures NM PET CT Cardiac Sarcoid Maegan Mike [facility] [place] [address] [place] [address] Referral ID Status Reason Start Date Expiration Date V isits Requested Visits Authorized [id number] Closed Specialty Service Requested 04/22/2023 10/20/2024 4 4 Encounter Details Date Type Department Care Team (Latest Contact Info) Description 04/30/2023 11:02 AM EST - 04/30/2023 11:04 AM [facility] Hospital Encounter [place] [address] Maegan Mike [facility] [place] [address] Discharge Disposition: Home Social History [...] place to sleep or slept in a fci (including now)? No 04/19/2023 DH IPV Inpatient [...] nightly as needed. empagliflozin (Jardiance) 10 mg TabletIndications:Data Lead neal heart failure with preserved ejection fraction Take 1 tablet by mouth daily. 90 tablet 1 06/11/2021 rOPINIRole (Requip) 1 mg Tablet Take 2 mg by mouth 2 times daily. 07/16/2020 loratadine (Claritin) 10 mg Tablet Take 10 mg by mouth daily as needed. fluticasone propionate (FLONASE) 50 mcg/actuation [place], Suspension 1 spray by Each Nare route [...] Tech [place] [address] Channing Escobedo [place] 10/08/2023 9:30 AM EDT Office Visit Vascular Surgery at [place] [phone] MD [facility] [place] [address] 10/21/2023 10:30 AM EDT Appointment Nuclear Medicine at [place] [phone] [place] [address] 10/21/2023 11:30 AM EDT Appointment Nuclear Medicine at [place] [phone] [place] [address] 10/21/2023 12:30 PM EDT Appointment [place] [address] [place] [address] 10/21/2023 1:30 PM EDT Appointment [place] [address] Mary Reyes [place] [address] 10/21/2023 2:30 PM EDT Appointment [place] [address] Mary Reyes [place] [address] 10/26/2023 4:00 PM EDT Office Visit Cardiology at [address] [phone] Jaspreet Kinsey MD [facility] [place] [address] 10/28/2023 9:00 AM EDT Office Visit [place] [address] 10/29/2023 10:00 AM EDT Clinical Support [place] [address] 10/29/2023 10:15 AM EDT Procedure visit [place] [address] 11/01/2023 5:00 PM EDT Office Visit [place] [address] Selene Browning, PhD [facility] [place] [address] 11/22/2023 4:40 PM EDT Office Visit Cardiology at [address] [phone] Porsha Mcdaniels MD [facility] [place] [address] 12/13/2023 10:00 AM EDT Clinical Support [place] [address] [facility] [place] [address] documented as of this encounter Procedures Procedure [...] questions please contact the health health care manager that requested your imaging first. ? 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 Following IV administration of 26.5 mCi technetium 99m sestamibi, SPECT-CT of the heart was obtained. Following IV injection of 8.8 mCi 21-hskhvl-4-deoxyglucose (FDG) and a standard uptake of approximately [...] obtained. Following IV injection of 8.8 mCi 08-zbpldj-1-deoxyglucose (FDG) and astandard uptake of approximately 60 [...] have questions please contactthe health health care manager that requested your imaging first. Maegan Mike PRESIDENT AND CHIEF EXECUTIVE OFFICER IMG PET ORDERABLE S documented in this encounter Visit Diagnoses Not on filedocumented in this encounter Care Teams Field Crop Farming Supervisor Relationship Specialty Start Date End Date Polo Pearce PA [address] [place] [address] PCP - General Internal Medicine 06/09/21 documented as of this encounter
--- OUTSIDE RECORDS SUMMARY | 2023-10-02 22:45 | XMS_ITS | Encounter Summary ---
Author Organization [facility] [place] [address] Care Team Providers Care Seed Expert Name Role Phone Polo Pearce Primary Care Provider [phone] Encounter Details Date Type Department Care Team (Late st Contact Info) Description 04/02/2023 Telephone Cardiology at [address] [phone] Ambreen Cartagena Social History Tobacco Use Types [...] see this patient in follow up at [facility] in 2-3 months. She had SVT ablation 04/01/23. Message sent Mary at [facility] to get pt scheduled there for f/up. Ambreen Cartagena Sr. Clinical Procedure [place]/Microbiology Lab Assistant documented in this encounter Plan of Treatment Upcoming Encounters Date Type Department Care Team (Late st Contact Info) Description 10/08/2023 8:30 AM EDT Tech Visit [place] [address]1000 Channing Esc[place] 10/08/2023 9:30 AM EDT Office Visit [place] [address] MD [facility] [place] [address] 10/21/2023 10:30 AM EDT Appointment [place] [address] Mary Reyes APRN [facility] [place] [address] 10/21/2023 11:30 AM EDT Appointment [place] [address] [place] [address] 10/21/2023 12:30 PM EDT Appointment [place] [address] [place] [address] 10/21/2023 1:30 PM EDT Appointment [place] [address] [place] [address] 10/21/2023 2:30 PM EDT Appointment [place] [address] [place] [address] 10/26/2023 4:00 PM EDT Office Visit Cardiology at [address] [phone] Jaspreet Kinsey MD [facility] [place] [address] 10/28/2023 9:00 AM EDT Office [place] [address] 10/29/2023 10:00 AM EDT Clinical [place] [address] 10/29/2023 10:15 AM EDT Procedure [place] [address] 11/01/2023 5:00 PM EDT Office [place] [address] Selene Browning, PhD [facility] [place] [address] 11/22/2023 4:40 PM EDT [place] [address] Porsha Mcdaniels MD [facility] [place] [address] 12/13/2023 10:00 AM EDT Clinical Support Gastroenterology at [place] [phone] Lucero Romero, RD [facility] [place] [address] documented as of this encounter Visit Diagnoses Not on filedocumented in this encounter Care Teams Seed Expert Relationship Specialty Start Date End Date Polo Pearce PA [address] [place] [address] PCP - General Internal Medicine 06/09/21 documented as of this encounter
--- OUTSIDE RECORDS SUMMARY | 2023-10-02 22:45 | XMS_ITS | Encounter Summary ---
Author Organization [facility] Address [facility] [place] [address] Care Team Providers Care Produce Clerk Name Role Phone Polo Pearce Primary Care Provider [phone] Encounter Details Date Type Department Care Team (Late st Contact Info) Description 02/16/2023 Telephone Cardiology at [address] [place] [address] Jaspreet Kinsey MD [facility] [place] [address] Social History Tobacco Use Types Packs/Day Years Used Date Smoking Tobacco: Never Smokeless Tobacco: Never Alcohol Use Standard Drinks/Week Comments Never 0 (1 standard drink = 0.6 oz pur e alcohol) [facility] Utilities Answer Date Recorded In the past 12 months has [employer], gas, oil, or water [employer] threatened to shut off services in your [...] in a skilled nursing (including now)? No 02/10/2023 Sex and Gender [...] her problems. Please call her back @ [phone] documented in this encounter Plan of Treatment Upcoming Encounters Date Type Department Care Team (Late st Contact Info) Description 10/08/2023 8:30 AM EDT Tech [place] [address] Channing Escob[place] 10/08/2023 9:30 AM EDT Office Visit Vascular Surgery at [place] [phone] MD [facility] [place] [address] 10/21/2023 10:30 AM EDT Appointment Nuclear Medicine at [place] [phone] [place] [address] 10/21/2023 11:30 AM EDT Appointment [place] [address] Mary Reyes [place] [address] 10/21/2023 12:30 PM EDT Appointment [place] [address] Mary Reyes [place] [address] 10/21/2023 1:30 PM EDT Appointment [place] [address] Mary Reyes [place] [address] 10/21/2023 2:30 PM EDT Appointment [place] [address] Mary Reyes APRN [facility] [place] [address] 10/26/2023 4:00 PM EDT Office Visit Cardiology at [address] [place] [address] [address] Jaspreet Kinsey MD [facility] [place] [address] 10/28/2023 9:00 AM EDT Office Visit [place] [address] 10/29/2023 10:00 AM EDT Clinical Support [place] [address] 10/29/2023 10:15 AM EDT Procedure [place] [address] 11/01/2023 5:00 PM EDT Office [place] [phone] Selene Browning, PhD [facility] [place] [address] 11/22/2023 4:40 PM EDT Office Visit Cardiology at [address] [phone] Porsha Mcdaniels MD [facility] [place] [address] 12/13/2023 10:00 AM EDT Clinical [place] [address]-[address] [facility] [place] [address] documented as of this encounter Visit Diagnoses Not on filedocumented in this encounter Care Teams Produce Clerk Relationship Specialty Start Date End Date Polo Pearce PA [address] [place] [address] PCP - General Internal Medicine 06/09/21 documented as of this encounter
--- OUTSIDE RECORDS SUMMARY | 2023-10-02 22:45 | XMS_ITS | Encounter Summary ---
Author Organization [facility] [place] [address] Care Team Providers Care Pension Agent Name Role Phone Polo Pearce Primary Care Provider [phone] Reason for Visit * Reason Onset Date Comments Follow-up 04/08/2023 Encounter Details Date Type Department Care Team (Late st Contact Info) Description 04/08/2023 Telephone Cardiology at [address] [phone] Mary Motta, RN Follow-up Social History Tobacco Use Types Packs/Day Years Used Date Smoking Tobacco: Never Smokeless Tobacco: Never Alcohol Use Standard Drinks/Week Comments Never 0 (1 standard drink = 0.6 oz pur e alcohol) [facility] Utilities Answer Date Recorded In the past 12 months has e [employer], gas, oil, or water [employer] threatened to shut off services in your [...] AM EDT Tech Visit Vascular Lab at [place] [phone] Channing Escobedo [place] 10/08/2023 9:30 AM EDT Office [place] [address] MD [facility] [place] [address] 10/21/2023 10:30 AM EDT Appointment Nuclear Medicine at [place] [phone] [place] [address] 10/21/2023 11:30 AM EDT Appointment [place] [phone] [place] [address] 10/21/2023 12:30 PM EDT Appointment [place] [phone] Mary Reyes [facility] [place] [address] 10/21/2023 1:30 PM EDT Appointment [place] [address] [place] [address] 10/21/2023 2:30 PM EDT Appointment [place] [address] Mary Reyes APRN [facility] [place] [address] 10/26/2023 4:00 PM EDT Office Visit Cardiology at [address] [phone] Jaspreet Kinsey MD [facility] [place] [address] 10/28/2023 9:00 AM EDT Office Visit [place] [address] 10/29/2023 10:00 AM EDT Clinical Support [place] [address] 10/29/2023 10:15 AM EDT Procedure visit [place] [address] 11/01/2023 5:00 PM EDT Office Visit Gastroenterology at [place] [phone] Selene Browning, PhD [facility] [place] [address] 11/22/2023 4:40 PM EDT Office Visit Cardiology at [address] [phone] Porsha Mcdaniels MD [facility] [place] [address] 12/13/2023 10:00 AM EDT Clinical [place] [phone] [facility] [place] [address] documented as of this encounter Visit Diagnoses Not on filedocumented in this encounter Care Teams Pension Agent Relationship Specialty Start Date End Date Polo Pearce PA [address] [place] [address] PCP - General Internal Medicine 06/09/21 documented as of this encounter
--- OUTSIDE RECORDS SUMMARY | 2023-10-02 22:45 | XMS_ITS | Encounter Summary ---
Author Organization [facility] Address [facility] [place] [address] Care Team Providers Care Hand Stonecutter Name Role Phone Polo Pearce Primary Care Provider [phone] Encounter Details Date Type Department Care Team (Late st Contact Info) Description 02/16/2023 11:20 AM EST Office Visit Cardiology at [address] [address] Jed Tovar MD [facility] [place] [address] PAF (paroxysmal atrial fibrillation); SVT (supraventricular tachycardia) Social History Tobacco Use Types Packs/Day Years Used Date Smoking Tobacco: Never Smokeless Tobacco: Never Alcohol Use Standard Drinks/Week Comments Never 0 (1 standard drink = 0.6 oz pur e alcohol) [facility] Utilities Answer Date Recorded In the past 12 months has [employer], gas, oil, or water [employer] threatened to shut off services in your [...] slept in a correction (including now)? No 02/10/2023 Sex and Gender [...] Follow Up Patient ID Indira Roque [id number] Indira Roque is following up in EP [...] upper lobe. Started on eliquis 08/2022 TTE ([facility]): normal bi-v s/f. 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 I have personally reviewed all [...] permanent pacemaker insertion, and the risk of stroke/UT/deathshould left-sided access be required) were reviewed in [...] AM EDT Tech [place] [address] Channing Escobedo [place] 10/08/2023 9:30 AM EDT Office Visit [place] [address] MD [facility] [place] [address] 10/21/2023 10:30 AM EDT Appointment Nuclear Medicine at [place] [phone] Mary Reyes [facility] [place] [address] 10/21/2023 11:30 AM EDT Appointment Nuclear Medicine at [address] [place] [address] 10/21/2023 12:30 PM EDT Appointment [place] [address] Mary Reyes [facility] [place] [address] 10/21/2023 1:30 PM EDT Appointment [place] [address] Mary Reyes [facility] [place] [address] 10/21/2023 2:30 PM EDT Appointment [place] [address] Mary Reyes [facility] [place] [address] 10/26/2023 4:00 PM EDT Office Visit Cardiology at [address] [address] Jaspreet Kinsey MD [facility] [place] [address] 10/28/2023 9:00 AM EDT Office [place] [address] 10/29/2023 10:00 AM EDT Clinical Support [place] [address] 10/29/2023 10:15 AM EDT Procedure [place] [address] 11/01/2023 5:00 PM EDT Office Visit [place] [phone] Selene Browning, PhD [facility] [place] [address] 11/22/2023 4:40 PM EDT Office Visit Cardiology at [address] [phone] Porsha Mcdaniels MD [facility] [place] [address] 12/13/2023 10:00 AM EDT Clinical Support [place] [address] [facility] [place] [address] Scheduled Orders Name Type Priority Associated Diagnoses [...] (Bezet) 511 ms MUSE SYSTEM Calculated P [place] 24 degrees MUSE SYSTEM Calculated R [place] 35 degrees MUSE SYSTEM Calculated T [place] 14 degrees MUSE SYSTEM INTERPRETATION Sinus bradycardia [...] dysrhythmias documented in this encounter Care Teams Hand Stonecutter Relationship Specialty Start Date End Date Polo Pearce PA [address] [place] [address] PCP - General Internal Medicine 06/09/21 documented as of this encounter
--- OUTSIDE RECORDS SUMMARY | 2023-10-02 22:45 | XMS_ITS | Encounter Summary ---
Author Organization [facility] Address [facility] [place] [address] Care Team Providers Care Assistant Professor Of Marine Biology Name Role Phone Polo Pearce Primary Care Provider [phone] Encounter Details Date Type Department Care Team [...] AM EDT Tech Visit [place] [address] Channing Escobedo [place] 10/08/2023 9:30 AM EDT Office [place] [address] MD [facility] [place] [place] [address] 10/21/2023 10:30 AM EDT Appointment Nuclear Medicine at [place] [phone] Mary Reyes SUPERVISOR ROLLING ROOM [facility] [place] [address] 10/21/2023 11:30 AM EDT Appointment [place] [phone] Mary Reyes SUPERVISOR ROLLING ROOM [facility] [place] [address] 10/21/2023 12:30 PM EDT Appointment [place] [phone] Mary Reyes SUPERVISOR ROLLING ROOM [facility] [place] [address] 10/21/2023 1:30 PM EDT Appointment [place] [address] [place] [address] 10/21/2023 2:30 PM EDT Appointment [place] [address] [place] [address] 10/26/2023 4:00 PM EDT Office Visit Cardiology at [address] [address] Jaspreet Kinsey MD [facility] [place] [address] 10/28/2023 9:00 AM EDT Office Visit [place] [address] 10/29/2023 10:00 AM EDT Clinical Support [place] [address] 10/29/2023 10:15 AM EDT Procedure visit [place] [address] 11/01/2023 5:00 PM EDT Office [place] [address] Selene Browning, PhD [facility] [address] 11/22/2023 4:40 PM EDT Office Visit Cardiology at [address] [address] Porsha Mcdaniels MD [facility] [place] [address] 12/13/2023 10:00 AM EDT Clinical [place] [address] [facility] [place] [address] documented as of this encounter Visit Diagnoses Not on filedocumented in this encounter Care Teams Assistant Professor Of Marine Biology Relationship Specialty Start Date End Date Polo Pearce PA [address] [place] [address] PCP - General Internal Medicine 06/09/21 documented as of this encounter
--- OUTSIDE RECORDS SUMMARY | 2023-10-02 22:45 | XMS_ITS | Encounter Summary ---
Author Organization Count Includes [facility] [address] Care Team Providers Care Fish Hatchery Assistant Name Role Phone Polo Pearce Primary Care Provider [phone] Encounter Details Date Type Department Care Team (Late st Contact Info) Description 04/16/2023 Telephone Cardiology at [address] [address] Vaishnavi Pratt MD [facility] [place] [address] Social History Tobacco Use Types Packs/Day Years Used Date Smoking Tobacco: Never Smokeless Tobacco: Never Alcohol Use Standard Drinks/Week Comments Never 0 (1 standard drink = 0.6 oz pur e alcohol) [facility] Utilities Answer Date Recorded In the past 12 months has [employer], gas, oil, or water [email or web address] threatened to shut off services in your [...] AM EDT Tech [place] [phone] Channing Escobedo [place] 10/08/2023 9:30 AM EDT Office [place] [address] MD [facility] [place] [address] 10/21/2023 10:30 AM EDT Appointment [place] [phone] Mary Reyes APRN [facility] [place] [address] 10/21/2023 11:30 AM EDT Appointment [place] [address] Mary Reyes [place] [address] 10/21/2023 12:30 PM EDT Appointment [place] [address] Mary Reyes [place] [address] 10/21/2023 1:30 PM EDT Appointment [place] [address] [place] [address] 10/21/2023 2:30 PM EDT Appointment [place] [address] [place] [address] 10/26/2023 4:00 PM EDT Office Visit Cardiology at [address] [phone] Jaspreet Kinsey MD [facility] [place] [address] 10/28/2023 9:00 AM EDT Office Visit [place] [address] 10/29/2023 10:00 AM EDT Clinical Support [place] [address] 10/29/2023 10:15 AM EDT Procedure visit [place] [address] 11/01/2023 5:00 PM EDT Office [place] [phone] Selene Browning, PhD [facility] [place] [address] 11/22/2023 4:40 PM EDT Office Visit Cardiology at [address] [phone] Porsha Mcdaniels MD [facility] [place] [address] 12/13/2023 10:00 AM EDT Clinical [place] [phone] [facility] [place] [place] [address] documented as of this encounter Visit Diagnoses [...] documented as of this encounter Care Teams Fish Hatchery Assistant Relationship Specialty Start Date End Date Polo Pearce PA [address] [place] [address] PCP - General Internal Medicine 06/09/21 documented as of this encounter
--- OUTSIDE RECORDS SUMMARY | 2023-10-02 22:45 | XMS_ITS | Encounter Summary ---
[place] [address] Care Team Providers Care Wet Process Miller Name Role Phone Polo Pearce Primary Care Provider [phone] Reason for Visit * Auth/Cert (Routine) Specialty [...] THER/DX INTERVENT ELECTROPHYSIOLOGY PROCEDURE Jed Tovar MD [facility] [place] [address] [facility] Referral ID Status Reason Start Date Expiration Date Visits Re quested Visits Authorized [id number] 1 1 Encounter Details Date Type Department Care Team (Latest Contact Info) Description 04/01/2023 6:20 AM EST - 04/01/2023 4:00 PM EST Hospital Encounter [place] [address] Jed Tovar MD [facility] [place] [address] SVT (supraventricular tachycardia); PAF (paroxysmal atrial fibrillation) Discharge Disposition: Home Social History Tobacco Use Types Packs/Day Years Used Date Smoking Tobacco: Never Smokeless Tobacco: Never Alcohol Use Standard Drinks/Week Comments Never 0 (1 standard drink = 0.6 oz pur e alcohol) [facility] Utilities Answer Date Recorded In the past 12 months has th e [employer], gas, oil, or water company threatened to [...] slept in a usp (including now)? No 02/10/2023 Sex and Gender [...] Indira Roque Patient Age: 53 y.o. Language: [place] Race: White Ethnicity: Not nor Admit date: [...] Cardiac Electrophysiology - Weekends and holidays call [phone]; ask for staffing analyst substation operator automatic. Discharge Diagnoses (Hospital Problems) and Secondary Diagnoses [...] in the context of hospitalization at [facility] for NSTEMI. A rapidly conducted narrow [...] days. Refills: 0 fluticasone propionate 50 mcg/actuation [place], Suspension Commonly known as: Flonase 1 spray [...] 3:00 PM Jaspreet Kinsey MD Cardiology at [place] Arrive at: [facility] [address] [phone] Discharge References/Attachments None documented in this encounter [...] as needed. fluticasone propionate (FLONASE) 50 mcg/actuation [place], Suspension 1 spray by Each Nare [...] PRE-PROCEDURE H&P Referring Provider: Jaspreet Kinsey MD [facility] [place] [address] Attending Provider: Jed Tovar MD Planned Procedure: EP study and SVT ablation Background and rationale for the procedure: Indira Roque is a 53 y.o. woman with paroxysmal atrial fibrillation, heart failure with preserved EF, and chronic angina with non-obstructive ASCVD but significant calcifications per coronary CTA. She has documented sustained narrow complex tachycardia on 06/13/2021 in the context of hospitalization at [facility] for NSTEMI. A rapidly conducted narrow [...] as needed. fluticasone propionate (FLONASE) 50 mcg/actuation [place], Suspension 1 spray by Each Nare [...] in agreement. Dr. Jed Tovar, electrophysiology attending ([id number]) documented in this encounter Procedure Notes * [...] jittery Break coverage by Luiza Peña RN [phone]. PACU D/C criteria met at 1300 1345 Hand off to ERWIN GomezP documented in this encounter Miscellaneous Notes * Brief Op Note - Jed Tovar MD - 04/01/2023 11:07 AM EST Brief Operative Note Patient Name: Indira Roque : [id number] MR#: [id number] Case Date: 04/01/2023 Surgeon: Surgeon(s) and Role: [...] Tech Visit Vascular Lab at [place] [phone] Channing Escobedo [place] 10/08/2023 9:30 AM EDT Office [place] [address] MD [facility] [place] [address] 10/21/2023 10:30 AM EDT Appointment [place] [address] Mary Reyes APRN [facility] [place] [address] 10/21/2023 11:30 AM EDT Appointment [place] [address] Mary Reyes APRN [facility] [place] [address] 10/21/2023 12:30 PM EDT Appointment [place] [address] [place] [address] 10/21/2023 1:30 PM EDT Appointment [place] [address] [place] [address] 10/21/2023 2:30 PM EDT Appointment [place] [address] Mary Reyes [place] [address] 10/26/2023 4:00 PM EDT Office Visit Cardiology at [address] [phone] Jaspreet Kinsey MD [facility] [place] [address] 10/28/2023 9:00 AM EDT Office [place] [address] 10/29/2023 10:00 AM EDT Clinical [place] [address] 10/29/2023 10:15 AM EDT Procedure [place] [address] 11/01/2023 5:00 PM EDT Office [place] [address] Sleene Browning, PhD [facility] [place] [address] 11/22/2023 4:40 PM EDT Office Visit Cardiology at [address] [address] Porsha Mcdaniels MD [facility] [place] [address] 12/13/2023 10:00 AM EDT Clinical [place] [address] Lucero Romero, RD [facility] [place] [address] documented as of this encounter Procedures Procedure [...] (Bezet) 519 ms MUSE SYSTEM Calculated P [place] 44 degrees MUSE SYSTEM Calculated R [place] 41 degrees MUSE SYSTEM Calculated T [place] 36 degrees MUSE SYSTEM INTERPRETATION Normal sinus [...] not included. ELECTROPHYSIOLOGY STUDY AND SVT ABLATION Personnel Training Officer: Jed Tovar MD Fellow: Jaspreet Grimm MD Referring: Jaspreet Kinsey MD Patient History: Indira Roque is a 53 y.o. woman with one episode of paroxysmal atrial fibrillation, heart failure with preserved EF, and chronic angina with non-obstructive ASCVD but significant calcifications per coronary CTA. She has documented sustained narrow complex tachycardia on 06/13/2021 in the context of hospitalization at [facility] for NSTEMI. A rapidly conducted narrow [...] Intervals (ms) Interval Name Interval length (milliseconds) NM 260 QRS 97 QT 531 AH 159 HV 47 Refractory Periods Atrial ERP 700/300 AV Makayla Conduction AV Wenckebach 360 ms Retrograde [place]enckebach 470 ms Medication Summary (drug, amount, route) Isoproterenol at 2-4 mcg/kg/min Radiology Summary Total Fluoro time (min) 1.4 DAP (cGycm2) 53 Findings: 1. The baseline EKG revealed sinus rhythm with prolonged NM and long AH, but otherwise normal intervals [...] for AVNRT. Procedures performed: SVT ablation (cpt 83077); induce post IV drug (cpt 82998-03-50) I have read, edited and approve of [...] (Bezet) 522 ms MUSE SYSTEM Calculated P [place] 50 degrees MUSE SYSTEM Calculated R [place] 69 degrees MUSE SYSTEM Calculated T [place] 16 degrees MUSE SYSTEM INTERPRETATION Sinus bradycardia Lateral infarct , age undetermined Prolonged QT Abnormal ECG When compared with ECG of 22-MAR-2023 16:45, (unconfirmed) T wave inversion no longer evident in Anterior leads QT has lengthened I personally reviewed the tracing and edited the fellows interpretation Confirmed by fellow MD Nas, Max ([id number]) on 04/01/2023 3:35:42 PM Confirmed by MD NAILA, KAUSHIK ([id number]) on 04/02/2023 8:28:26 AM MUSE SYSTEM 04/01/2023 7:31 AM EST 04/02/2023 8:28 AM EST Jed Tovar MD ECG ORDERABLES MUSE SYSTEM * Differential, Automated (04/01/2023 7:20 AM EST) Pathologist [facility] Neutrophils % 53.2 % [facility] Neutr Abs (ANC) 3.51 1.70 - 6.10 x10(3)/[facility] Lymphocytes % 32.4 % [facility] Lymphocytes Abs 2.1 0.9 - 3.2 x10(3)/[facility] Monocytes % 8.7 % [facility] Monocyte Abs 0.6 0.3 - 0.9 x10(3)/[facility] Eosinophils % 4.6 % [facility] Eosinophils Abs 0.3 0.0 - 0.4 x10(3)/[facility] Basophils % 0.8 % [facility] Basophils Abs 0.0 0.0 - 0.1 x10(3)/[facility] Immature Gran % 0.30 % [facility] Comment: Immature granulocytes(IG's)percentage and absolute count will include metamyelocytes, myelocytes, and promyelocytes. Blood smears from CBCs yielding IG's will be scanned manually for concordance. If this scan disagrees with the automated IG or if promyelocytes are noted, a manual differential will be performed. Shonda Gran Abs 0.02 0.00 - 0.04 x10(3)/[facility] Blood 04/01/2023 7:20 AM EST 04/01/2023 7:33 AM EST Narrative Resulting Agency Comment Spec In Lab Jed Tovar MD HEMATOLOGY ORDERABLE S Performing Organization Address City/State/[facility] Co de Phone Number [facility] [place] [address] * (ABNORMAL) Hemogram (04/01/2023 7:20 AM EST) WBC 6.6 4.0 - 9.5 x10(3)/[facility] LAB[facility] RBC 4.56 4.00 - 5.21 x10(6)/[facility] Hemoglobin 14.1 11.7 - 15.5 g/dL [facility] Hematocrit 43.1 35.7 - 45.8 % [facility] MCV 94.5(H) 82.6 - 94.4 fL [facility] MCH 30.9 27.1 - 32.0 pg [facility] MCHC 32.7 31.7 - 35.0 g/dL [facility] Platelets 229 145 - 357 x10(3)/[facility] LAB[facility] RDWSD 44.7 37.0 - 46.0 fL [facility] RDWCV 12.7 11.5 - 14.1 % [facility] MPV 11.7 7.6 - 12.9 fL [facility] nRBC % Auto 0.0 % [facility] nRBC Abs Auto 0.000 0.000 - 0.000 x10(3)/mcL [facility] Blood 04/01/2023 7:20 AM EST 04/01/2023 7:33 AM EST Narrative Resulting Agency Comment Spec In Lab Jed Tovar MD HEMATOLOGY ORDERABLE S [facility] [place] [address] * (ABNORMAL) BMP w/fasting Glucose (04/01/2023 7:20 AM EST) Glucose Fasting 99 65 - 99 mg/dL [facility] Comment: ?Fasting* Glucose Interpretive Criteria [...] of Diabetes Mellitus, Position Statement from the [place] [employer]. ??Diabetes Care, Volume 33, Supplement 1, Mar 2009 BUN 22(H) 8 - 18 mg/dL [facility] Creatinine 1.10 0.70 - 1.20 mg/dL [facility] Sodium 139 135 - 145 mmol/L [facility] [...] 107 mmol/L [facility] CO2 22 22 - 31 mmol/L [facility] Anion Gap 9 5 - 15 mmol/L [facility] Calcium 9.6 8.5 - 10.5 mg/dL [facility] Estimated GFR 60 >=60 mL/min/1. 73 m?? [facility] [...] In Lab Jed Tovar MD CHEMISTRY ORDERABLES [facility] [place] [phone] documented in this encounter Visit Diagnoses Diagnosis [...] Jaspreet Perry CRNA) PRN Medication Order 03/30/2023 03/31/202304/0104/01/2023 acetaminophen (Tylenol) tablet 650 mg 650 mg, [...] Routine 1400 (Given - Provid er: Patricia Singer, ERWIN)1413 (Given - Provider: Patricia Singer RN) Linked [...] on Aura 04/01/23 at 1112, Until Aura 124 at 1558, Pain, Moderate to severe pain (6-10 out of 10), Hold for respiratory rate less than 10 per minute. Maximum dose 200 mcg over one hour, including OR administration. If ordered with HYDROmorphone or morphine, give HYDROmorphone or morphine first and use fentaNYL for breakthrough pain., PACU Recovery, Routine documented in this encounter Care Teams Wet Process Miller Relationship Specialty Start Date End Date Polo Pearce PA [address] [place] [address] PCP - General Internal Medicine 06/09/21 documented as of this encounter
--- OUTSIDE RECORDS SUMMARY | 2023-10-02 22:45 | XMS_ITS | Encounter Summary ---
Author Organization [facility] [place] [address] Care Team Providers Care News Writer Name Role Phone Polo Pearce Primary Care Provider [phone] Reason for Visit * Auth/Cert (Routine) Specialty Diagnoses / Procedures Referred By Jayant harris Referred To Contact Diagnoses NSTEMI (non-ST elevated myocardial infarction) NSTEMI Procedures ER Terrence Pantoja MD [facility] [place] [address] [facility] Referral ID Status Reason Start Date Expiration Date Visits Re quested Visits Authorized [id number] 1 1 Encounter Details Date Type Department Care Team (Late st Contact Info) Description 04/18/2023 9:00 AM EST - 04/18/2023 10:04 AM EST Surgery [place] [address] Dustin Carrasco MD [facility] [place] [address] CARDIAC CATHETERIZATION Social History Tobacco Use Types Packs/Day Years Used Date Smoking Tobacco: Never Smokeless Tobacco: Never Alcohol Use Standard Drinks/Week Comments Never 0 (1 standard drink = 0.6 oz pur e alcohol) [facility] Utilities Answer Date Recorded In the past 12 months has [employer]), oil, or water [employer] threatened to shut off services in your [...] slept in a longterm (including now)? No 04/19/2023 DH IPV Inpatient [...] Loida Madrigal Patient Age: 53 y.o. Language: Welsh Admit date: 04/16/2023 Discharge date and time: [...] 500 and repeat HS Trop at [facility] peak 27 with flat [...] discharge Inpatient Provider Contact Information: Cardiovascular Medicine [phone] Discharge Diagnoses (Hospital Problems) and Secondary Diagnoses [...] motion has increased. CTA PE protocol at [facility]- no PE but showed small pericardial effusion and some GG opacities. History of Presentation: Loida Madrigal is a 53 y.o. with hx of paroxysmal A-fib (diagnosed on 10/20/2022), pulmonary emboli on Eliquis, HFpEF (EF of 59%), supraventricular tachycardia (AVNRT since 06/2021) s/p EPS and SVTablation on 04/01/[address] Tovar on [facility], restrictive lung disease secondary to obesity presents from [facility] with complains of chest discomfort that started overnight. The patient has been experiencing ongoing chest pain, prompting admission on 02/11/23 primarily due to concerns about a NSTEMI indicated by elevated troponin levels and EKG changes noted at OSH. However, the observed EKG changes remained largely consistent with previous recordings. Troponin levels at [facility] showed a plateau at [...] again 10/15, improving with sublingua Nitro. At [facility] Vitals: HR 48, BP 115/42, O2 [...] #Acute on chronic HFpEF Patient presented to [facility] on 04/16 with chest pain responsive to SL NTG. Troponin ~500x2. Transferredto [facility] for further evaluation. Troponin at [facility], 24>23 w/ repeat peak 27->26. [...] days. Refills: 0 fluticasone propionate 50 mcg/actuation Rosamond, Suspension Commonly known as: Flonase 1 spray [...] 9:40 AM Jaspreet Kinsey MD Cardiology at [place] Arrive at: [facility] [address] [phone] 09/21/2023 3:00 PM Jaspreet Kinsey MD Cardiology at [place] Arrive at: [facility] [address] [phone] Discharge References/Attachments None Greater than 30 minutes was spent on this discharge including documentation, [id number]-esyi time withthe patient, patient education, mill recorder, coordination with pharmacy and other [...] away. Stay on the phone. The emergency sheet pile hammer operator will tell you what to do. [...] of 8AM-5PM please call the Cardiology Clinic [phone] to speak with a nurse. All other hours please call the Hospital Bus Inspector [phone] and ask to speak to the relations manager on-call. Return to work: One week Follow up Appointments: Doctor Where Phone # Date Time PCP JOCY Franco [address] [place] [address] 04/28/2023 7:[address] Kin[facility] [address] 05/10/2023 9:40 AM * Attachments The following attachments cannot be sent through Care Everywhere. * Coronary Angiogram: Post-op (Welsh) documented in this encounter Medications at Time [...] nightly as needed. empagliflozin (Jardiance) 10 mg TabletIndications:Topstitcher Zigzag neal heart failure with preserved ejection fraction Take 1 tablet by mouth daily. 90 tablet 1 06/11/2021 rOPINIRole (Requip) 1 mg Tablet Take 2 mg by mouth 2 times daily. 07/16/2020 loratadine (Claritin) 10 mg Tablet Take 10 mg by mouth daily as needed. fluticasone propionate (FLONASE) 50 mcg/actuation Rosamond, Suspension 1 spray by Each Nare route [...] with pt, pt wheeled to d/c [facility]. I agree with [...] note were not included. CARDIOLOGY APP1 - [facility] DAILY PROGRESS NOTE Page [phone] to reach a provider 28/09 Admit Date: [...] disease secondary to obesity who presented to [facility] on 04/16 with chest pain responsive to SL NTG. Troponin ~500x2. Transferred to [facility] for further evaluation. Troponin at [facility], 24>23. Reports exertional chest pressure [...] effusion. She underw ent [facility] on 04/18 which showed non-obstructive [...] Score: 24 PT: OT: PCP JOCY Franco [phone] Discussed with MD Kurt Ray PA-C APP1 pager [phone] 04/22/2023 CV HOSPITALIST ADDENDUM Date of Service: [...] 04/21/2023 6:10 PM EST CARDIOLOGY APP1 - [facility] DAILY PROGRESS NOTE Page [phone] to reach a provider 28/09 Admit Date: [...] BP: 116/63 BP: (102-118)/(56-83) Resp: 20 Resp: [12-] SpO2: 97 % SpO2: [95 %-100 %] [...] 12 CRP <=4.9 mg/L <3.0 <3.0 OSH [facility] troponin ~500. Telemetry: I have personally [...] disease secondary to obesity who presented to [facility] on 04/16 with chest pain responsive to SL NTG. Troponin ~500x2. Transferred to [facility] for further evaluation. Troponin at [facility], 24>23. Reports exertional chest pressure [...] Diet: Daily Healthy Menu Choices/Cardiac diet ([facility]-Diet) 2 GM NA DVT Prophylaxis: DOAC Code status: Attempt Cardiopulmonary Resuscitation - Inpatient Disposition: Discharge Location: AM-PAC Basic Mobility Raw Score: 22 PT: OT: PCP JOCY Franco [phone] * Eufemia Copeland MD - 04/20/2023 4:34 PM EST CARDIOLOGY APP1 - [facility] DAILY PROGRESS NOTE Page [phone] to reach a provider 28/09 Admit Date: [...] 12 CRP <=4.9 mg/L <3.0 <3.0 OSH [facility] troponin ~500. Telemetry: I have personally [...] disease secondary to obesity who presented to [facility] on 04/16 with chest pain responsive to SL NTG. Troponin ~500x2. Transferred to [facility] for further evaluation. Troponin at [facility], 24>23. Reports exertional chest pressure [...] Diet: Daily Healthy Menu Choices/Cardiac diet ([facility]-Diet) 2 GM NA; 2000 mL FLUID DVT Prophylaxis: DOAC Code status: Attempt Cardiopulmonary Resuscitation - Inpatient Disposition: Discharge Location: AM-PAC Basic Mobility Raw Score: 24 PT: OT: PCP JOCY Franco [phone] * Carrol La PA - 04/19/2023 12:32 PM EST CARDIOLOGY APP1 - [facility] DAILY PROGRESS NOTE Page [phone] to reach a provider 28/09 Admit Date: [...] 12 CRP <=4.9 mg/L <3.0 <3.0 OSH [facility] troponin ~500. EKG: Sinus bradycardia, 47 bpm, PAC, possible left atrial enlargement, possible lateral infarct, QTc 511. Telemetry: I have personally reviewed and interpreted the telemetry from the last 24 hours. Resultsshow sinus bradycardia with HR 50s, PVCs, heart rate climbs to 70s with activity.. Imaging: [facility] 04/18/23 Conclusions: * Nonobstructive coronary [...] motion has increased. CTA PE protocol at [facility]- no PE but showed small pericardial [...] acute aortopathy. 4. No acute pulmonary findings. [facility] 06/09/2021-RA 4, PA 38/15 (24) PCWP 11, CO/CI 3.14/1.6. [facility] 08/30/2019-normal coronary arteries. Assessment & [...] disease secondary to obesity who presented to [facility] on 04/16 with chest pain responsive to SL NTG. Troponin ~500x2. Transferred to [facility] for further evaluation. Troponin at [facility], 24>23. Reports exertional chest pressure [...] effusion. She underw ent [facility] on 04/18 which showed non-obstructive [...] Diet: Daily Healthy Menu Choices/Cardiac diet ([facility]-Diet) 2 GM NA; 2000 mL FLUID DVT Prophylaxis: DOAC Code status: Attempt Cardiopulmonary Resuscitation - Inpatient Disposition: Discharge Location: [facility] Basic Mobility Raw Score: 24 PT: OT: PCP JOCY Franco [phone] Discussed with MD Carrol Aly PA-C APP1 Pager: [phone] 04/19/2023 Nikkie Albarran RCP - 04/18/2023 10:10 PM EST Respiratory [...] note were not included. CARDIOLOGY APP1 - [facility] DAILY PROGRESS NOTE Page [phone] to reach a provider 28/09 Admit Date: [...] breathlessness. Awaiting cardiac catheterization potentially today if Coping Machine Operator availability allows.She remains on ACS therapies. Medications: [...] 233 MCV 91.1 92.5 Recent Labs 04/18/2320904/17/23 033 NA 143 141 CL 107 106 CO2 24 22 K 3.6 4.0 MAGNESIUM 1.02 0.99 PHOS -- 4.1 CALCIUM 9.2 9.4 BUN 23* 19* CREATININE 1.18 1.19 Coags Recent Labs 04/17/23 033 INR 1.2 PT 13.3* PTT 40* Cardiac Markers Recent Labs 04/17/23 0643 04/17/23 033 TROPONINTHS 23* 24* PROBNP -- 867* Endocrine Recent Labs 04/18/23 02104/17/23 0333 02/08/23 2208 09/27/22 0307 07/22/23 1750 TSH -- 5.93* 4.00 -- 3.02 HA1C 5.6 -- -- 5.6 -- Recent Labs 04/18/23 0210 CHLPL 173 TRIG 174 HDL 44 LDLCHOL 94 CHOLHDL 3.9 Recent Labs 04/17/23 1944 04/17/23 0333 GLUCOSE -- 89 POCGLU 128 -- Latest Reference Range & Units 02/09/23 03:55 04/17/23 03:33 Sed Rate 2 - 39 mm/hr 15 12 CRP <=4.9 mg/L <3.0 <3.0 OSH [facility] troponin ~500. EKG: Sinus bradycardia, 47 [...] motion has increased. CTA PE protocol at [facility]- no PE but showed small pericardial [...] lung disease secondary to obesity presents from [facility] with complains of exertional chest pressure [...] if ongoing chest pain -[facility] 04/18 depending on Coping Machine Operator availability. #Hx of pAfib #Hx of AVNRT [...] Score: 24 PT: OT: PCP JOCY Franco [phone] Discussed with MD Kurt Sheppard PA-C APP1 pager [phone] 04/18/2023 * Kurt Silveira PA - 04/17/2023 7:15 AM EST Images from the original note were not included. CARDIOLOGY APP1 - [facility] DAILY PROGRESS NOTE Page [phone] to reach a provider 28/09 Admit Date: [...] 12 CRP <=4.9 mg/L <3.0 <3.0 OSH [facility] troponin ~500. EKG: Sinus bradycardia, 47 [...] motion has increased. CTA PE protocol at [facility]- no PE but showed small pericardial [...] acute aortopathy. 4. No acute pulmonary findings. [facility] 06/09/2021-RA 4, PA 38/15 (24) PCWP 11, CO/CI 3.14/1.6. [facility] 08/30/2019-normal coronary arteries. Assessment & [...] lung disease secondary to obesity presents from [facility] with complains of exertional chest pressure [...] if ongoing chest pain -[facility] 04/18 or 04/19 depending on Coping Machine Operator availability. #Hx of pAfib #Hx of AVNRT sp EPS and Ablation - hold eliquis. Last taken on 04/16/23 am. - Continue IV heparin. # Hx of PE- continue with IV heparin Diet: No diet orders on file DVT Prophylaxis: DOAC Code status: Attempt Cardiopulmonary Resuscitation - Inpatient Disposition: Discharge Location: AM-PAC Basic Mobility Raw Score: 14 PT: OT: PCP JOCY Franco [phone] Discussed with MD Kurt Sheppard PA-C APP1 pager [phone] 04/17/2023 documented in this encounter H&P Notes [...] on 04/01/[address] Tovar on [facility], restrictive lung disease secondary to obesity presents from [facility] with complains of chest discomfort that started overnight. The patient has been experiencing ongoing chest pain, prompting admission on 02/11/23 primarily due to concerns about a NSTEMI indicated by elevated troponin levels and EKG changes noted at OSH. However, the observed EKG changes remained largely consistent with previous recordings. Troponin levels at [facility] showed a plateau at [...] again 10/15, improving with sublingua Nitro. 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 fluticasone propionate (FLONASE) 50 mcg/actuation Rosamond, Suspension 1 spray by Each Nare route [...] on 04/01/[address] Tovar on [facility], restrictive lung disease secondary to obesity presents from [facility] with complains of chest discomfort that [...] N/A Patient is insured through: Primary Insurance: [employer] Payor[place] [employer] [place] / Plan[place] / Product Type: *No Product type* / Secondary Insurance: N/A Prescription Coverage: Yes This plan was formulated with input from patient and team. All are in agreement with plan. * Consult Note - Maegan Mike APRN - 04/22/2023 10:38 AM EST Images from the original note were not included. [facility] [place] [phone] INPATIENT CARDIOLOGY CONSULT PROGRESS NOTE Interval events: [...] insights. Discussed with MD Maegan De Leon, SCORER HELPER Pager [phone] 04/22/2023 Associated attestation - Jaspreet Kinsey MD [...] Tatum MSW - 04/20/2023 2:22 PM EST ENGINEERING GEOLOGIST received a consult to support patient with financial concerns. ENGINEERING GEOLOGIST met with patient and introduced self. Patient stated due to hospitalization, she has been out of work and feeling stress around not being able to pay bills. I have a car payment and other bills and it's like I have to choose which one to pay and which one not to pay. ENGINEERING GEOLOGIST validated patient's stress around financial concerns. ENGINEERING GEOLOGIST asked patient if she has applied for [employer] or any other state benefits. Patient stated that she has, but is over the household income criteria to qualify for benefits. Patient shared that she owns her home outright and mainly concerned about making her car payment and transportation home. MSWstated that care management will help arrange for a ride, if needed. ENGINEERING GEOLOGIST provided patient with community resources such as the [facility] Food Directory, the [facility] Community Action phone number, and the [facility] [place] [facility] [employer] contact info. ENGINEERING GEOLOGIST available to support patient should anything else [...] Admitted From: Transfer from another hospital Location: [facility] Reason for Hospitalization: chest pain and cough Covid Vaccination Status: 1st, 2nd & booster Last COVID test: Lab Results Component Value Date [id number] Not Detected 06/13/2021 Past medical History: Past [...] shut off services in your home?: Yes (ELENZA is currently threatening to shut off electricity [...] ([facility]) Home Address confirmed as: [address] [address] Social & Family Supports: All names listed [...] Specific Information: N/A Health/Prescription Coverage: Primary Insurance: [employer] Payor: [employer] [place] / Plan: [place] / Product Type: *No Product type* / Secondary Insurance: N/A ; Prescription Coverage: Yes Preferred Pharmacy: [facility] - [place], [place] - [address] [facility] [address] [facility] - [place], [place] - [address] [facility] [address] Status: Patient is a : No Primary Care Provider confirmed: JOCY Franco [phone] Patient/Caregiver Goals of Treatment: home w / family when MR Potential Needs for Transition of Care: other (see comments) (ENGINEERING GEOLOGIST support; pt's spouse was denied twice for [...] Concerns to be Addressed: financial/insurance, discharge planning; ENGINEERING GEOLOGIST consult placed to discuss available resources Assessment: Patient is admitted to [facility] service for NSTEMI Plan: pending clinical course, but likely home w/o services when MR A member of the Care Management team will continue to monitor progress, follow for continuity of care and assist with transition of care planning. * Consult Note - Otis Rader MD - 04/19/2023 10:00 AM EST Images from the original note were not included. [facility] [place] [phone] INPATIENT CARDIOLOGY CONSULT NOTE Reason for Consult: [...] and heparin prior to [facility] 04/18, which was negative for [...] came back ~1115am, s/p [facility] with no coronary artery disease [...] for further details. JOCY Marie 04/17/2023 Pager [phone] * Plan of Care - Sudhakar Smith [...] EDT Tech Visit [place] [address] [place] 10/08/2023 9:30 AM EDT Office Visit Vascular Surgery at [address] MD [facility] [place] [address] 10/21/2023 10:30 AM EDT Appointment Nuclear Medicine at [address] [place] [address] 10/21/2023 11:30 AM EDT Appointment Nuclear Medicine at [place] [phone] Mary Reyes [facility] [place] [address] 10/21/2023 12:30 PM EDT Appointment Nuclear Medicine at [place] [phone] [place] [address] 10/21/2023 1:30 PM EDT Appointment [place] [address] Mary Reyes [facility] [place] [address] 10/21/2023 2:30 PM EDT Appointment [place] [address] Mary Reyes [facility] [place] [address] 10/26/2023 4:00 PM EDT Office Visit Cardiology at [address] [address] Jaspreet Kinsey MD [facility] [place] [address] 10/28/2023 9:00 AM EDT Office [place] [address] 10/29/2023 10:00 AM EDT Clinical Support [place] [address] 10/29/2023 10:15 AM EDT Procedure visit [place] [address] 11/01/2023 5:00 PM EDT Office [place] [phone] Selene Browning, PhD [facility] [place] [address] 11/22/2023 4:40 PM EDT Office Visit Cardiology at [address] [phone] Porsha Mcdaniels MD [facility] [place] [address] 12/13/2023 10:00 AM EDT Clinical [place] [address] [facility] [place] [address] documented as of this encounter Procedures Procedure [...] who have questions please contact the health primary care coordinator that requested your imaging first. ? 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 Following IV administration of 26.5 mCi technetium 99m sestamibi, SPECT-CT of the heart was obtained. Following IV injection of 8.8 mCi 24-imdfcq-4-deoxyglucose (FDG) and a standard uptake of approximately [...] obtained. Following IV injection of 8.8 mCi 40-poyfbu-0-deoxyglucose (FDG) and astandard uptake of approximately 60 [...] patients who have questions please contactthe health primary care coordinator that requested your imaging first. Electronically signed by: Humberto Qureshi MD, [facility]([phone]), at 05/06/2023 11:09 AM Maegan Mike SCORER HELPER IMG PET ORDERABLE S * MRI Cardiac [...] who have questions please contact the health primary care coordinator that requested your imaging first. ? Narrative [...] patients who have questions please contactthe health primary care coordinator that requested your imaging first. Terrence Maloney MD IMG MRI ORDERABLES * Hemogram (04/21/2023 3:40 AM EST) WBC 7.1 4.0 - 9.5 x10(3)/[facility] LABORATORY RBC 4.59 4.00 - 5.21 x10(6)/[facility] LABORATORY Hemoglobin 14.4 11.7 - 15.5 g/dL [facility] Hematocrit 43.0 35.7 - 45.8 % [facility] MCV 93.7 82.6 - 94.[address] [facility] MCH 31.4 27.1 - 32.[address] [facility] MCHC 33.5 31.7 - 35.0 g/dL [facility] Platelets 221 145 - 357 x10(3)/[facility] LABORATORY RDWSD 43.5 37.0 - 46.[address] [facility] RDWCV 12.6 11.5 - 14.1 % [facility] MPV 11.1 7.6 - 12.9 fL [facility] nRBC % Auto 0.0 % [facility] nRBC Abs Auto 0.000 0.000 - 0.000 x10(3)/mcL [facility] Blood 04/21/2023 3:40 AM EST 04/21/2023 3:58 AM EST Narrative Resulting Agency Comment Spec In Lab Ailyn Knight MD HEMATOLOGY ORDERABLE S Performing Organization Address City/State/[facility] Co de Phone Number [facility] [place] [address] * (ABNORMAL) BMP w/fasting Glucose (04/21/2023 3:40 AM EST) Glucose Fasting 107(H) 65 - 99 mg/dL [facility] Comment: ?Fasting* Glucose Interpretive Criteria [...] of Diabetes Mellitus, Position Statement from the [place] [employer] Association. ??Diabetes Care, Volume 33, Supplement 1, Mar 2009 BUN 20(H) 8 - 18 mg/dL ST [...] Knight MD CHEMISTRY ORDERABLES Performing Organization Address City/[facility]/ZIP Co de Phone Number [facility] [place] [address] * Magnesium (04/21/2023 3:40 AM EST) Magnesium 0.90 0.69 - 1.07 mmol/L [facility] Blood 04/21/2023 3:40 AM EST 04/21/2023 3:58 AM EST Narrative Resulting Agency Comment Spec In Lab Ailyn Knight MD CHEMISTRY ORDERABLES Performing Organization Address City/[facility]/ZIP Co de Phone Number [facility] [place] [address] * (ABNORMAL) Troponin (04/20/2023 4:44 PM EST) Troponin-T HS 26(H) <=14 ng/L [facility] Comment: This patient's troponin T [...] can be found in the [facility] Test Catalog Troponin - [facility] Test Catalog Reference: Fourth [place] Definition of Myocardial Infarction. Journal of the [place] College [employer] 2018;72:3335-1052 Blood 04/20/2023 4:44 PM EST 04/20/2023 4:53 PM EST Narrative Resulting Agency Comment Spec In Lab Eufemia Copeland MD CHEMISTRY ORDERABL ES Performing Organization Address City/State/[facility] Co de Phone Number [facility] [place] [address] * Duplex for DVT, Arm, Unilat (04/20/2023 4:22 PM EST) VB Text Report Department: Vascular Surgery Lab Patient: [id number] (NEISHA, MELINDA) CPT: 52121 Referring Physician: TERRENCE MALONEY ?? Phone: Indications: [...] PM EST) Troponin-T HS 27(H) <=14 ng/L [facility] Comment: This patient's troponin T [...] can be found in the [facility] Test Catalog Troponin - [facility] Test Catalog Reference: Fourth Perry Definition of Myocardial Infarction. Journal of the [place] [employer] 2018;72:7435-0093 Blood 04/20/2023 1:47 PM EST 04/20/2023 2:18 PM EST Narrative Resulting Agency Comment Spec In Lab Eufemia Copeland MD CHEMISTRY ORDERABL ES Performing Organization Address City/[facility]/ZIP Co de Phone Number [facility] [place] [address] * (ABNORMAL) Troponin (04/20/2023 10:48 AM EST) Troponin-T HS 24(H) <=14 ng/L [facility] Comment: This patient's troponin T [...] can be found in the [facility] Test Catalog Troponin - [facility] Test Catalog Reference: Fourth Perry Definition of Myocardial Infarction. Journal of the [place] [employer] 2018;72:3765-0034 Blood 04/20/2023 10:4 8 AM EST 04/20/2023 11:03 AM EST Narrative Resulting Agency Comment Spec In Lab Eufemia Copeland MD CHEMISTRY ORDERABL ES Performing Organization Address City/[facility]/ZIP Co de Phone Number [facility] [place] [address] * EKG 12 Lead (04/20/2023 10:23 AM EST) Ventricular rate 60 BPM MUSE SYSTEM Atrial Rate 60 BPM MUSE SYSTEM P-R Interval 170 ms MUSE SYSTEM QRS Duration 86 ms MUSE SYSTEM Q-T Interval 470 ms MUSE SYSTEM QTC Calculated (Bezet) 470 ms MUSE SYSTEM Calculated P Chapin 39 degrees MUSE SYSTEM Calculated R Chapin 63 degrees MUSE SYSTEM Calculated T Chapin -16 degrees MUSE SYSTEM INTERPRETATION Normal sinus [...] leads Confirmed by MD Eli, Manish [place] ([id number]) on 04/22/2023 12:10:07 PM MUSE SYSTEM 04/20/2023 10:2 3 AM EST 04/22/2023 12:10 PM EST Terrence Maloney MD ECG ORDERABLES MUSE SYSTEM * Hemogram (04/20/2023 3:11 AM EST) Pathologist [facility] WBC 6.6 4.0 - 9.5 x10(3)/[facility] LABORATORY RBC 4.59 4.00 - 5.21 x10(6)/[facility]ATORY Hemoglobin 14.2 11.7 - 15.5 g/dL [facility] Hematocrit 42.7 35.7 - 45.8 % [facility] MCV 93.0 82.6 - 94.[address] [facility] MCH 30.9 27.1 - 32.[address] [facility] MCHC 33.3 31.7 - 35.0 g/dL [facility] Platelets 231 145 - 357 x10(3)/[facility] LABORATORY RDWSD 43.6 37.0 - 46.[address] [facility] RDWCV 12.6 11.5 - 14.1 % [facility] MPV 11.0 7.6 - 12.[address] [facility] nRBC % Auto 0.0 % [facility] nRBC Abs Auto 0.000 0.000 - 0.000 x10(3)/mcL [facility] Blood 04/20/2023 3:11 AM EST 04/20/2023 3:24 AM EST Narrative Resulting Agency Comment Spec In Lab Ailyn Knight MD HEMATOLOGY ORDERABLE S Performing Organization Address City/State/[facility] Co de Phone Number [facility] [place] [address] * (ABNORMAL) BMP w/fasting Glucose (04/20/2023 3:11 AM EST) Glucose Fasting 107(H) 65 - 99 mg/dL [facility] Comment: ?Fasting* Glucose Interpretive Criteria [...] of Diabetes Mellitus, Position Statement from the [place] [employer] Association. ??Diabetes Care, Volume 33, Supplement 1, Mar 2009 BUN 20(H) 8 - 18 mg/dL [facility] Creatinine 1.05 0.70 - 1.20 mg/dL [facility] [...] mg/dL [facility] Estimated GFR 63 >=60 mL/min/1. 73 m?? [facility] [...] Knight MD CHEMISTRY ORDERABLES Performing Organization Address [facility]/ZIP Co de Phone Number [facility] [place] [address] * Magnesium (04/20/2023 3:11 AM EST) Magnesium 0.91 0.69 - 1.07 mmol/L [facility] Blood 04/20/2023 3:11 AM EST 04/20/2023 3:24 AM EST Narrative Resulting Agency Comment Spec In Lab Ailyn Knight MD CHEMISTRY ORDERABLES Performing Organization Address City/[facility]/ZIP Co de Phone Number [facility] [place] [address] * Respiratory Panel PCR (04/19/2023 2:05 PM EST) Resp Panel Source [employer] Swab [facility] Resp Panel PCR Negative Negative [facility] Comment: Respiratory Panels are performed on the Zenbox, using multiplexed PCR nucleic acid detection. ??Negative results do not preclude respiratory infection and should not be used as the sole basis for diagnosis, treatment or other management decisions. Adenovirus Not Detected Not Detected [facility] Coronavirus HKU1 Not Detected Not Detected [facility] Coronavirus NL63 Not Detected Not Detected [facility] Coronavirus 229E Not Detected Not Detected [facility] Coronavirus OC43 Not Detected Not Detected [facility] SARS-CoV-2 Not Detect[address] Not Detected [facility] Comment: Testing for SARS-CoV-2 (Severe acute respiratory syndrome coronavirus 2) to aid in the diagnosis of COVID-19 is performed using the BioFire Respiratory Panel 2.1 (Ge.tt) as authorized by the FDA issued Emergency Use Authorization (EUA). This panel also tests for multiple other viral and bacterial pathogens. This assay is intended for In-vitro Diagnostic (IVD) use with nasopharyngeal swabs in viral transport media. The assay is performed based on the instructions for use and additional guidance provided by the FDA. Testing is performed in laboratories within the [facility], each of which is certified under [...] fact sheets at the following FDA website: https://www.fda.gov/medical-devices/supzqbdcebc-mwibeao-3529-ywzzn-70-wqqpwbyfv- use-a snflwnwfgjniw-fnvegqf-ayzjzka/rlhlr-oduxzhcsrsz-ewfz Human Metapneumovirus Not Detected Not Detected [facility] Human Rhino/Enterovirus Not Detected Not Detected [facility] Influenza A Not Detected Not Detected [facility] Influenza B Not Detected Not Detected [facility] Parainfluenza 1 Not Detected Not Detected [facility] Parainfluenza 2 Not Detected Not Detected [facility] Parainfluenza 3 Not Detected Not Detected [facility] Parainfluenza 4 Not Detected Not Detected [facility] Respiratory Syncytial Virus Not Detected Not Detected [facility] Chlamydophila pneumoniae Not Detected Not Detected [facility] Mycoplasma pneumoniae Not Detected Not Detected [facility] Nasopharyngeal Swab Other / Unknown 04/19 2:05 PM EST 04/19/2023 3:16 PM EST Narrative Resulting Agency Comment Spec In Lab Carrol SANDRA MICROBIOLOGY - GENER AL ORDERABLES [facility] [place] [address] * (ABNORMAL) Urine culture (04/19/2023 10:25 AM EST) Pathologist [facility] Urine Culture 10,000-49,000 cfu/ml mixed mucosal elmer Note: Culture shows multiple bacterial species suggesting mucosal contamination. (A) [facility] Clean Catch Urine 04/19/2023 10:25 AM EST 04/19/2023 12:49 PM EST Narrative Resulting Agency Comment Spec In Lab Carrol SANDRA MICROBIOLOGY - GENER AL ORDERABLES Performing Organization Address [facility] Co de Phone Number [facility] [place] [address] * (ABNORMAL) Urinalysis Microscopic Exam (04/19/2023 10:25 AM EST) Pathologist [facility] RBC UA 1 0 - 4 /HPF [facility] WBC UA 10(H) 0 - 5 /HPF [facility] Squam Epith UA 4 <=4 /HPF [facility] Hyaline Cast UA 1 0 - 2 /LPF [facility] Clean Catch Urine 04/19/2023 10:25 AM EST 04/19/2023 11:08 AM EST Narrative Resulting Agency Comment Spec In Lab Carrol SANDRA URINE ORDERABLES Performing Organization Address [facility]/ZIP Co de Phone Number [facility] [place] [address] * (ABNORMAL) Urinalysis with reflex Culture (04/19/2023 10:25 AM EST) Pathologist [facility] Glucose UA >=1000(Crit ical) Negative mg/dL [facility] Comment: Urinalysis result NOT critical without a combination of Glucose greater than or equal to 500 mg/dL AND Ketones greater than or equal to 80 mg/dL Protein UA Negative Negative mg/dL [facility] Bilirubin UA Negative Negative mg/dL [facility] Comment: Clinical correlation required for positive Urine Bilirubin results as false positive may occur with some drugs and drug related products. If a false positive is suspected a serum total bilirubin should be considered if clinically indicated. Urobilinogen UA Normal Normal mg/dL [facility] pH UA 5.5 5.0 - 8.0 [facility] Blood UA Negative Negative mg/dL [facility] Ketones UA Negative Negative mg/dL [facility] Nitrite UA Negative Negative [facility] Leukocytes UA Small(A) Negative [facility] Appearance UA Clear Clear [facility] Spec [place] UA 1.024 1.005 - 1.030 [facility] Color UA Yellow Yellow [facility] Culture Reflexed Yes [facility] Clean Catch Urine 04/19/2023 10:25 AM EST 04/19/2023 11:08 AM EST Narrative Resulting Agency Comment Spec In Lab Ailyn Knight MD URINE ORDERABLES [facility] [place] [address] * Arterial Duplex Arm, Unilat (04/19/2023 9:40 AM EST) VB Text Report Department: Vascular Surgery Lab Patient: [id number] (LOIDA MADRIGAL) CPT: 69064 Referring Physician: AILYN KNIGHT ?? Phone: Indications: [...] AM EST) WBC 7.5 4.0 - 9.5 x10(3)/[facility] LABORATORY RBC 4.86 4.00 - 5.21 x10(6)/[facility] LABORATORY Hemoglobin 14.8 11.7 - 15.5 g/dL [facility] Hematocrit 45.5 35.7 - 45.8 % [facility] MCV 93.6 82.6 - 94.4 fL [facility] MCH 30.5 27.1 - 32.[address] [facility] MCHC 32.5 31.7 - 35.0 g/dL [facility] Platelets 240 145 - 357 x10(3)/[facility] LABORATORY RDWSD 43.8 37.0 - 46.[address] [facility] RDWCV 12.7 11.5 - 14.1 % [facility] MPV 11.0 7.6 - 12.[address] [facility] nRBC % Auto 0.0 % [facility] nRBC Abs Auto 0.000 0.000 - 0.000 x10(3)/[facility] LABORATORY Blood 04/19/2023 2:40 AM EST 04/19/2023 2:57 AM EST Narrative Resulting Agency Comment Spec In Lab Ailyn Knight MD HEMATOLOGY ORDERABLE S Performing Organization Address City/State/[facility] Co de Phone Number [facility] [place] [address] * (ABNORMAL) BMP w/fasting Glucose (04/19/2023 2:40 AM EST) Glucose Fasting 106(H) 65 - 99 mg/dL [facility] Comment: ?Fasting* Glucose Interpretive Criteria [...] of Diabetes Mellitus, Position Statement from the [place] [employer] Association. ??Diabetes Care, Volume 33, Supplement 1, Mar 2009 BUN 22(H) 8 - 18 mg/dL ST [...] In Lab Ailyn Knight MD CHEMISTRY ORDERABLES [facility] [place] [address] * Magnesium (04/19/2023 2:40 AM EST) Magnesium 0.97 0.69 - 1.07 mmol/L [facility] Blood 04/19/2023 2:40 AM EST 04/19/2023 2:57 AM EST Narrative Resulting Agency Comment Spec In Lab Ailyn Knight MD CHEMISTRY ORDERABLES Performing Organization Address [facility]/State/ZIP Co de Phone Number [facility] [place] [address] * CARDIAC CATHETERIZATION (04/18/2023 11:05 AM EST) Anatomical Region Laterality Modality Other Narrative 04/19/2023 6:57 AM EST ?[facility] ? Cardiac Catheterization/Intervention Report ? Patient Name: Neisha, Loida ? Procedure Date: 04/18/2023 ? A #: [id number] ? Primary Physician: Dustin Carrasco ? Case #: [id number] ? File Name: [id number] ? Catheterization Order Number: [id number] ? [facility] ? Final Report [place], [place] ? Patient Name: ? Loida Neisha ? ID#: ?[id number] ? : ?1970 ? Procedure Date: ? April 18, 2023 ?Case #: ? [id number] ? Room: ? 6 ? Case Physician: [...] procedure was Urgent. The indication for ?the center medical and lab director visit is ACS greater than 24 hrs. [...] Procedure Note Dustin Carrasco MD - 05/03/2023 [facility] Cardiac Catheterization/Intervention Report Patient Name: Loida Madrigal Procedure Date: 04/18/2023 A #: [id number] Primary Physician: Dustin Carrasco Case #: [id number] File Name: [id number] Catheterization Order Number: [id number] [facility] FinalReport [place], [place] Patient Name: Loida Madrigal ID#:[id number] :1970 Procedure Date: April 18, 2023 Case [...] patient was designated as ASA Class III. [facility] clinical frailty scale is 4: Vulnerable. Diagnostic [...] diagnostic procedure was Urgent. The indicationfor the center medical and lab director visit is ACS greater than 24 hrs. [...] units of heparin were administered. A total [id number] of Omnipaque were opened, 65cc of Omnipaque were administered [id number] of Omnipaque were wasted. Radiation: Fluoro time [...] AM EST) Heparin UFH Level 0.39 IU/mL [facility] Comment: Heparin [...] Lab Terrence Maloney MD HEMATOLOGY ORDERABLE S [facility] [place] [address] * Differential, Automated (04/18/2023 2:10 AM EST) Neutrophils % 51.4 % [facility] Neutr Abs (ANC) 3.43 1.70 - 6.10 x10(3)/[facility] LABORATORY Lymphocytes % 33.8 % [facility] Lymphocytes Abs 2.2 0.9 - 3.2 x10(3)/[facility] Monocytes % 9.9 % [facility] Monocyte Abs 0.7 0.3 - 0.9 x10(3)/[facility]ORY Eosinophils % 3.9 % [facility] Eosinophils Abs 0.3 0.0 - 0.4 x10(3)/[facility] Basophils % 0.8 % [facility] Basophils Abs 0.0 0.0 - 0.1 x10(3)/[facility] LABORATORY Immature Gran % 0.20 % [facility] Comment: Immature granulocytes(IG's)percentage and absolute count will include metamyelocytes, myelocytes, and promyelocytes. Blood smears from CBCs yielding IG's will be scanned manually for concordance. If this scan disagrees with the automated IG or if promyelocytes are noted, a manual differential will be performed. Shonda Gran Abs 0.01 0.00 - 0.04 x10(3)/[facility] LABORATORY Blood 04/18/2023 2:10 AM EST 04/18/2023 2:44 AM EST Narrative Resulting Agency Comment Spec In Lab Terrence Maloney MD HEMATOLOGY ORDERABLE S Performing Organization Address City/State/[facility] Co de Phone Number [facility] [place] [address] * Hemogram (04/18/2023 2:10 AM EST) WBC 6.7 4.0 - 9.5 x10(3)/[facility] LABORATORY RBC 4.93 4.00 - 5.21 x10(6)/[facility]ORY Hemoglobin 15.2 11.7 - 15.5 g/dL [facility] Hematocrit 44.9 35.7 - 45.8 % [facility] MCV 91.1 82.6 - 94.[address] [facility] MCH 30.8 27.1 - 32.[address] [facility] MCHC 33.9 31.7 - 35.0 g/dL [facility] Platelets 233 145 - 357 x10(3)/[facility] LABORATORY RDWSD 42.0 37.0 - 46.[address] [facility] RDWCV 12.8 11.5 - 14.1 % [facility] MPV 11.3 7.6 - 12.[address] [facility] nRBC % Auto 0.0 % [facility] nRBC Abs Auto 0.000 0.000 - 0.000 x10(3)/[facility] Blood 04/18/2023 2:10 AM EST 04/18/2023 2:44 AM EST Narrative Resulting Agency Comment Spec In Lab Terrence Maloney MD HEMATOLOGY ORDERABLE S Performing Organization Address [facility] Co de Phone Number [facility] [place] [address] * Heparin (unfractionated) Level (04/18/2023 2:10 AM EST) Heparin UFH Level 0.50 IU/mL [facility] Comment: Heparin [...] HEMATOLOGY ORDERABLE S Performing Organization Address [facility]/ZIP Co de Phone Number [facility] [place] [address] * (ABNORMAL) BMP w/fasting Glucose (04/18/2023 2:10 AM EST) Glucose Fasting 98 65 - 99 mg/dL [facility] Comment: ?Fasting* Glucose Interpretive Criteria [...] of Diabetes Mellitus, Position Statement from the [place] Diabetes Association. ??Diabetes Care, Volume 33, Supplement 1, Mar 2009 BUN 23(H) 8 - 18 mg/dL [facility] Creatinine 1.18 0.70 - 1.20 mg/dL [facility] Sodium 143 135 - 145 mmol/L [facility] [...] In Lab Ailyn Knight MD CHEMISTRY ORDERABLES [facility] [place] [address] * Magnesium (04/18/2023 2:10 AM EST) Magnesium 1.02 0.69 - 1.07 mmol/L [facility] Blood 04/18/2023 2:10 AM EST 04/18/2023 2:44 AM EST Narrative Resulting Agency Comment Spec In Lab Ailyn Knight MD CHEMISTRY ORDERABLES Performing Organization Address City/[facility]/ZIP Co de Phone Number [facility] [place] [address] * LDL Cholesterol, Direct (04/18/2023 2:10 AM EST) LDL Chol Direct 105 mg/dL [facility] Comment: Lowest Risk: <100 mg/dL Lower Risk: 100-129 mg/dL Borderline High Risk: 130-159 mg/dL High Risk: 160-189 mg/dL Very High Risk: >ix=492 mg/dL Blood 04/18/2023 2:10 AM EST 04/18/2023 2:44 AM EST Narrative Resulting Agency Comment Spec In Lab Terrence Maloney MD CHEMISTRY ORDERABLES Performing Organization Address City/[facility] Co de Phone Number [facility] [place] [address] * Hemoglobin A1c (04/18/2023 2:10 AM EST) Hemoglobin A1C 5.6 4.3 - 5.6 % [facility] Comment: Reference Range: 4.3 - [...] Mellitus, Diabetes Care 2013; 36: Suppl. 1, S67-91 Est Avg Gluc 115 mg/dL [facility] Blood 04/18/2023 2:10 AM EST 04/18/2023 2:44 AM EST Narrative Resulting Agency Comment Spec In Lab Terrence Maloney MD CHEMISTRY ORDERABLES [facility] [place] [address] * Lipid Panel (Reflex Direct LDL) (04/18/2023 2:10 AM EST) Chol, Total 173 mg/dL [facility] Comment: Lower Risk: <200 mg/dL Average Risk: 200-239 mg/dL Higher Risk: >kn=150 mg/dL Triglycerides 174 mg/dL [facility] Comment: Average Risk/Lower Risk: <150 mg/dL Borderline High Risk: 150-199 mg/dL High Risk: 200-499 mg/dL Very High Risk: >zo=544 mg/dL HDL 44 mg/dL [facility] Comment: Males: ?? Higher Risk: <40 mg/dL Females: ?? Higher Risk: <50 mg/dL LDL Cholesterol 94 mg/dL [facility] Comment: Lowest Risk: <100 mg/dL Lower Risk: 100-129 mg/dL Borderline High Risk: 130-159 mg/dL High Risk: 160-189 mg/dL Very High Risk: >gn=608 mg/dL Chol/HDL Ratio 3.[address] [facility] Lipid Interpretation See Note [facility] Comment: Lipid management should be guided by a patient? s ASCVD risk, goals and preferences. ACC/AHA Guidelines recommend high intensity statin if clinical ASCVD or LDL greater than or equal to 190 mg/dL. http://tinyurl.com/LCF-ETB-Twgleygyq Adults aged 40-75 with LDL 70-189 mg/dL should have their 10 year ASCVD risk estimated with the ACC/AHA ASCVD risk character actress http://tools.acc.org/BQYIU-Chfi-Xaeonimxy/ Statin should be discussed if risk greater [...] Maloney MD CHEMISTRY ORDERABLES Performing Organization Address [facility]/ZIP Co de Phone Number [facility] [place] [address] * POCT Glucose (04/17/2023 7:44 PM EST) POC Glucose 128 65 - 199 mg/dL [facility] Comment: Supplemental ranges: <140 mg/dL before meals <180 mg/dL all other times of the day Blood 04/17/2023 7:44 PM EST 04/17/2023 7:44 PM EST Ailyn Knight MD POINT OF CARE TEST O RDERABLES Performing Organization Address [facility] Co de Phone Number [facility] [place] [address] * (ABNORMAL) Heparin (unfractionated) Level (04/17/2023 6:01 PM EST) Heparin UFH Level 1.14(Crit ical) IU/mL [facility] Comment: [...] HEMATOLOGY ORDERABLE S Performing Organization Address [facility] Co de Phone Number [facility] [place] [address] * (ABNORMAL) Heparin (unfractionated) Level (04/17/2023 12:45 PM EST) Heparin UFH Level 1.39(Crit ical) IU/mL [facility] Comment: Critical Result called by ?? KATIE CRITICAL Results read back by: ? Marta [...] HEMATOLOGY ORDERABLE S Performing Organization Address [facility] Co de Phone Number [facility] [place] [address] * ECHO LMTD W CONTRAST W LMTD SPEC DOPP COLOR DOPP (04/17/2023 11:59 AM EST) EF 58 HEARTLAB SYSTEM Anatomical Region Laterality Modality Cardiac Other 04/17/2023 10:2 4 AM EST Narrative 04/17/2023 12:09 PM EST [address] [place] [address] ? Echocardiogram Report Name: NEISHA, LOIDA ? Study Date: 04/17/2023 10:24 AMBP: 114/64 mmHg ? [facility] 1970 [facility]: 160 cm ? Account: [id number] Age: 53 yrs ? Weight: 98 kg [...] wall motion has increased. Procedure Limited - 47530. Image enhancement Optison was used for left [...] Note Jaspreet Kinsey MD - 04/17/2023 [address] [place] [id number] Echocardiogram Report Name: LOIDA MADRIGAL Study Date: 0:24 AMBP: 114/64 mmHg Patient Location: : 1970 Height: 160 cm Account: [id number] Age: 53 yrs Weight: 98 kg Gender: [...] wall motion has increased. Procedure Limited - 33085. Image enhancement Optison was used for left [...] EST) Heparin UFH Level 1.41(Crit ical) IU/mL ST [...] HEMATOLOGY ORDERABLE S Performing Organization Address City/[facility]/ZIP Co de Phone Number [facility] [place] [address] * (ABNORMAL) Troponin (04/17/2023 6:43 AM EST) Troponin-T HS 23(H) <=14 ng/L [facility] Comment: This patient's troponin T [...] can be found in the [facility] Test Catalog Troponin - [facility] Test Catalog Reference: Fourth Perry Definition of Myocardial Infarction. Journal of the [place] [employer] 2018;72:5263-2736 Blood 04/17/2023 6:43 AM EST 04/17/2023 6:52 AM EST Narrative Resulting Agency Comment Spec In Lab Terrence Maloney MD CHEMISTRY ORDERABLES Performing Organization Address City/[facility]/ZIP Co de Phone Number [facility] [place] [address] * EKG 12 Lead (04/17/2023 3:41 AM EST) Ventricular rate 47 BPM MUSE SYSTEM Atrial Rate 47 BPM MUSE SYSTEM P-R Interval 186 ms MUSE SYSTEM QRS Duration 90 ms MUSE SYSTEM Q-T Interval 578 ms MUSE SYSTEM QTC Calculated (Bezet) 511 ms MUSE SYSTEM Calculated P [place] 24 degrees MUSE SYSTEM Calculated R [place] 23 degrees MUSE SYSTEM Calculated T [place] 27 degrees MUSE SYSTEM INTERPRETATION Sinus bradycardia with Premature atrial complexes Possible Left atrial enlargement Possible Lateral infarct , age undetermined Prolonged QT Abnormal ECG When compared with ECG of 01-APR-2023 12:28, Premature atrial complexes are now Present Vent. rate has decreased BY ??33 BPM Nonspecific T wave abnormality, improved in Anterior leads Confirmed by MD Angelo Danette ([id number]) on 04/20/2023 8:28:40 PM MUSE SYSTEM 04/17/2023 3:41 AM EST 04/20/2023 8:28 PM EST Terrence Maloney MD ECG ORDERABLES MUSE SYSTEM * Differential, Automated (04/17/2023 3:33 AM EST) Neutrophils % 54.4 % [facility] Neutr Abs (ANC) 4.02 1.70 - 6.10 x10(3)/[facility] Lymphocytes % 32.0 % [facility] Lymphocytes Abs 2.4 0.9 - 3.2 x10(3)/[facility] Monocytes % 8.7 % [facility] Monocyte Abs 0.6 0.3 - 0.9 x10(3)/[facility]ORY Eosinophils % 3.9 % [facility] Eosinophils Abs 0.3 0.0 - 0.4 x10(3)/[facility] Basophils % 0.7 % [facility] Basophils Abs 0.0 0.0 - 0.1 x10(3)/[facility] LABOR[facility] Immature Gran % 0.30 % [facility] Comment: Immature granulocytes(IG's)percentage and absolute count will include metamyelocytes, myelocytes, and promyelocytes. Blood smears from CBCs yielding IG's will be scanned manually for concordance. If this scan disagrees with the automated IG or if promyelocytes are noted, a manual differential will be performed. Shonda Gran Abs 0.02 0.00 - 0.04 x10(3)/[facility]ORAT[facility] Blood 04/17/2023 3:33 AM EST 04/17/2023 3:42 AM EST Narrative Resulting Agency Comment Spec In Lab Terrence Maloney MD HEMATOLOGY ORDERABLE S [facility] [place] [address] * Hemogram (04/17/2023 3:33 AM EST) WBC 7.4 4.0 - 9.5 x10(3)/[facility] RBC 4.79 4.00 - 5.21 x10(6)/[facility] Hemoglobin 14.8 11.7 - 15.5 g/dL [facility] Hematocrit 44.3 35.7 - 45.8 % [facility] MCV 92.5 82.6 - 94.[address] [facility] MCH 30.9 27.1 - 32.[address] [facility] MCHC 33.4 31.7 - 35.0 g/dL [facility] Platelets 233 145 - 357 x10(3)/[facility] RDWSD 43.4 37.0 - 46.0 [facility] RDWCV 12.7 11.5 - 14.1 % [facility] MPV 11.0 7.6 - 12.9 [facility] nRBC % Auto 0.0 % [facility] nRBC Abs Auto 0.000 0.000 - 0.000 x10(3)/[facility] Blood 04/17/2023 3:33 AM EST 04/17/2023 3:42 AM EST Narrative Resulting Agency Comment Spec In Lab Terrence Maloney MD HEMATOLOGY ORDERABLE S Performing Organization Address [facility]/ZIP Co de Phone Number [facility] [place] [address] * Sedimentation rate (04/17/2023 3:33 AM EST) Sed Rate 12 2 - 39 mm/hr [facility] Comment: Effective February 15, 2019 new capillary photometric technology has resulted in a change in reference ranges. It is recommended that each ESR result be reviewed with its own age appropriate reference range. Blood 04/17/2023 3:33 AM EST 04/17/2023 3:42 AM EST Narrative Resulting Agency Comment Spec In Lab Terrence Maloney MD HEMATOLOGY ORDERABLE S Performing Organization Address [facility] Co de Phone Number [facility] [place] [address] * CRP, acute inflammation (04/17/2023 3:33 AM EST) CRP <3.0 <=4.9 mg/L [facility] Blood 04/17/2023 3:33 AM EST 04/17/2023 3:42 AM EST Narrative Resulting Agency Comment Spec In Lab Terrence Maloney MD CHEMISTRY ORDERABLES Performing Organization Address [facility] Co de Phone Number [facility] [place] [address] * (ABNORMAL) Troponin (04/17/2023 3:33 AM EST) Troponin-T HS 24(H) <=14 ng/L [facility] Comment: This patient's troponin T [...] can be found in the [facility] Test Catalog Troponin - [facility] Test Catalog Reference: Fourth Perry Definition of Myocardial Infarction. Journal of the [place] [employer] 2018;72:1540-8416 Blood 04/17/2023 3:33 AM EST 04/17/2023 3:42 AM EST Narrative Resulting Agency Comment Spec In Lab Terrence Maloney MD CHEMISTRY ORDERABLES Performing Organization Address [facility] Co de Phone Number [facility] [place] [address] * (ABNORMAL) APTT (04/17/2023 3:33 AM EST) PTT 40(H) 25 - [address] [facility] Comment: The PTT is NOT appropriate for heparin monitoring. Use the Anti-Xa level for heparin monitoring (HEP UFH) or LMWH monitoring (HEP LMW). A PTT less than 37 seconds generally indicates adequate hemostasis. Blood 04/17/2023 3:33 AM EST 04/17/2023 3:42 AM EST Narrative Resulting Agency Comment Spec In Lab Terrence Maloney MD HEMATOLOGY ORDERABLE S Performing Organization Address [facility] Co de Phone Number [facility] [place] [address] * (ABNORMAL) Prothrombin Time (04/17/2023 3:33 AM EST) PT 13.3(H) 9.4 - 12.[address] [facility] INR 1.2 [facility] Comment: An INR <2.0 [...] HEMATOLOGY ORDERABLE S Performing Organization Address [facility] Co de Phone Number [facility] [place] [address] * Hepatic Function Panel (04/17/2023 3:33 AM EST) Total Protein 6.9 6.1 - 8.0 g/dL [facility] Albumin 4.2 3.2 - 5.2 g/dL [facility] AST Not Perf 0 - 30 [facility] Comment: Unable to quantitate due to sample hemolysis. ??Sample redraw suggested. Called by: Danny Bowles, Read back by: Nyla Cassidy, Date/Time:04/17/23 05:06. ALT 17 0 - 30 unit/L [facility] Alk Phos 59 35 - 105 unit/L [facility] Total Bilirubin 0.4 0.2 - 1.3 mg/dL [facility] Bili, Direct 0.1 0.0 - 0.3 mg/dL [facility] Blood 04/17/2023 3:33 AM EST 04/17/2023 3:42 AM EST Narrative Resulting Agency Comment Spec In Lab Terrence Maloney MD CHEMISTRY ORDERABLES Performing Organization Address [facility] Co de Phone Number [facility] [place] [address] * (ABNORMAL) pro-Brain Natriuretic Peptide (04/17/2023 3:33 AM EST) ProBNP 867(H) <=124 pg/mL [facility] Blood 04/17/2023 3:33 AM EST 04/17/2023 3:42 AM EST Narrative Resulting Agency Comment Spec In Lab Terrence Maloney MD CHEMISTRY ORDERABLES Performing Organization Address City/[facility]/ZIP Co de Phone Number [facility] [place] [address] * (ABNORMAL) TSH (04/17/2023 3:33 AM EST) Pathologist [facility] TSH 5.93(H) 0.27 - 4.20 mcIU/mL [facility] Comment: Reference Interval (mcIU/mL): Females: ??First Trimester: 0.23-3.88 ??Second Trimester: 0.22-3.90 ??Third Trimester: 0.44-4.66 Blood 04/17/2023 3:33 AM EST 04/17/2023 3:42 AM EST Narrative Resulting Agency Comment Spec In Lab Terrence Maloney MD CHEMISTRY ORDERABLES Performing Organization Address City/[facility]/ZIP Co de Phone Number [facility] [place] [address] * Phosphorus (04/17/2023 3:33 AM EST) Phosphorus 4.1 2.5 - 4.5 mg/dL [facility] Blood 04/17/2023 3:33 AM EST 04/17/2023 3:42 AM EST Narrative Resulting Agency Comment Spec In Lab Terrence Maloney MD CHEMISTRY ORDERABLES Performing Organization Address [facility] Co de Phone Number [facility] [place] [address] * Magnesium (04/17/2023 3:33 AM EST) Magnesium 0.99 0.69 - 1.07 mmol/L [facility] Blood 04/17/2023 3:33 AM EST 04/17/2023 3:42 AM EST Narrative Resulting Agency Comment Spec In Lab Terrence Maloney MD CHEMISTRY ORDERABLES [facility] [place] [address] * (ABNORMAL) Basic Metabolic Panel (non-fasting) (04/17/2023 3:33 AM EST) Glucose Lvl 89 65 - 199 mg/dL [facility] [...] In Lab Terrence Maloney MD CHEMISTRY ORDERABLES [facility] [place] [address] * Film Library- Storage Only CT Chest [...] on Wed04/19/23 at 0900, Until Discontinued, Routine 0828 (Given - Provider: Chilo Nickerson RN) 08 (Given - Provider: Charity Jackson, ERWIN) 923 (Given - Provider: China Myers) apixaban [...] documented as of this encounter Care Teams News Writer Relationship Specialty Start Date End Date Ploo Pearce PA [address] [place] [address] PCP - General Internal Medicine 06/09/21 documented as of this encounter
--- OUTSIDE RECORDS SUMMARY | 2023-10-02 22:45 | XMS_ITS | Encounter Summary ---
Author [place] [address] Care Team Providers Care Solar Crew Member Name Role Phone Polo Pearce Primary Care Provider [phone] Reason for Visit * Auth/Cert (Routine) Specialty Diagnoses / Procedures Referred By Jayant harris Referred To Contact Diagnoses NSTEMI (non-ST elevated myocardial infarction) NSTEMI Procedures ER Lloyd Pantoja MD [facility] [place] [address] [facility] Referral ID Status Reason Start Date Expiration Date Visits Re quested Visits Authorized [id number] 1 1 Encounter Details Date Type Department Care Team (Latest Contact Info) Description 04/17/2023 9:15 AM EST - 04/17/2023 11:59 PM EST Hospital Encounter Non-[place] [address] Discharge Disposition: Home Social History Tobacco Use Types Packs/Day Years Used Date Smoking Tobacco: Never Smokeless Tobacco: Never Alcohol Use Standard Drinks/Week Comments Never 0 (1 standard drink = 0.6 oz pur e alcohol) [facility] Utilities Answer Date Recorded In [...] in a alf (including now)? No 02/10/2023 DH IPV Inpatient [...] as needed. fluticasone propionate (FLONASE) 50 mcg/actuation Olar, Suspension 1 spray by Each Nare route [...] AM EDT Tech [place] [address] Channing Escobedo [place] 10/08/2023 9:30 AM EDT Office Visit [place] [address] MD [facility] [place] [address] 10/21/2023 10:30 AM EDT Appointment Nuclear Medicine at [place] [phone] Mary Reyes [facility] [address] 10/21/2023 11:30 AM EDT Appointment Nuclear Medicine at [address] [place] [address] 10/21/2023 12:30 PM EDT Appointment [place] [address] Mary Reyes [facility] [place] [address] 10/21/2023 1:30 PM EDT Appointment [place] [address] Mary Reyes [facility] [place] [address] 10/21/2023 2:30 PM EDT Appointment [place] [address] Mary Reyes [facility] [place] [address] 10/26/2023 4:00 PM EDT Office Visit Cardiology at [address] [facility] [[email or web address] [place] [address] Jaspreet Kinsey MD [facility] [place] [address] 10/28/2023 9:00 AM EDT Office Visit [place]ology [place] [address] 10/29/2023 10:00 AM EDT Clinical Support [place]ology [place] [address] 10/29/2023 10:15 AM EDT Procedure visit Gastroenterology [place] [address] 11/01/2023 5:00 PM EDT Office Visit [place] [phone] Selene Browning, PhD [facility] [place] [address] 11/22/2023 4:40 PM EDT Office Visit Cardiology at [address] [phone] Porsha Mcdaniels MD [facility] [place] [address] 12/13/2023 10:00 AM EDT Clinical Support [place] [phone] [facility] [place] [address] documented as of this encounter Procedures Procedure [...] mLs documented in this encounter Care Teams Solar Crew Member Relationship Specialty Start Date End Date Polo Pearce PA [address] [place] [address] PCP - General Internal Medicine 06/09/21 documented as of this encounter
--- OUTSIDE RECORDS SUMMARY | 2023-10-02 22:45 | XMS_ITS | Encounter Summary ---
[place] [address] Care Team Providers Care Sql Ssrs Ssis Developer Name Role Phone Polo Pearce Primary Care Provider [phone] Encounter Details Date Type Department Care Team (Late st Contact Info) Description 04/16/2023 External [place] [phone] Social History Tobacco Use Types Packs/Day Years [...] in a alf (including now)? No 04/19/2023 IPV Inpatient Questions [...] AM EDT Tech [place] [phone] Channing Escobedo [place] 10/08/2023 9:30 AM EDT Office Visit [place] [phone] MD [facility] [place] [address] 10/21/2023 10:30 AM EDT Appointment [place] [phone] Mary Reyes APRN [facility] [place] [address] 10/21/2023 11:30 AM EDT Appointment [place] [phone] Mary Reyes APRN [facility] [place] [address] 10/21/2023 12:30 PM EDT Appointment [place] [address] Mary [place] [address] 10/21/2023 1:30 PM EDT Appointment [place] [address] [place] [address] 10/21/2023 2:30 PM EDT Appointment [place] [address] [place] [address] 10/26/2023 4:00 PM EDT Office Visit Cardiology at [address] [phone] Jaspreet Kinsey MD [facility] [place] [address] 10/28/2023 9:00 AM EDT Office [place] [address] 10/29/2023 10:00 AM EDT Clinical [place] [address] 10/29/2023 10:15 AM EDT Procedure [place] [address] 11/01/2023 5:00 PM EDT Office Visit [place] [phone] Selene Browning, PhD [facility] [place] [address] 11/22/2023 4:40 PM EDT Office Visit Cardiology at [address] [phone] Porsha Mcdaniels MD [facility] [place] [address] 12/13/2023 10:00 AM EDT Clinical Support [place] [phone] Lucero Romero, [place] [facility] [place] [address] documented as of this encounter Procedures Procedure Name Priority Date/Time Associated Diagnosis Comments ECG SCAN Routine 04/16/2023 6:11 PM EST documented in this encounter Results * Scan Doc: ECG (04/16/2023 6:11 PM EST) Historical Provider MD FLEMING MGTalia SCAN EX T ORDR/RSLT documented in this encounter Visit Diagnoses Not on filedocumented in this encounter Care Teams Sql Ssrs Ssis Developer Relationship Specialty Start Date End Date Polo Pearce PA [address] [place] [address] PCP - General Internal Medicine 06/09/21 documented as of this encounter
--- OUTSIDE RECORDS SUMMARY | 2023-10-02 22:45 | XMS_ITS | Encounter Summary ---
Author Organization [facility] [address] Care Team Providers Care Helmet Hat Brim Cutter Name Role Phone Polo Pearce Primary Care Provider [phone] Reason for Referral * Consultation (Routine) - Closed Specialty Diagnoses / Procedures Referred By Jayant harris Referred To Contact Cardiology Diagnoses Non-ST elevation myocardial infarction (NSTEMI) Itz Bhardwaj MD [facility] [place] [address] Cardiac Rehab, [address] [place] [address] Referral ID Status Reason Start Date Expiration Date V isits Requested Visits Authorized [id number] Closed Consult, Test & Treat Non PCP 02/18/2023 08/17/2023 36 36 Encounter Details Date Type Department Care Team (Late st Contact Info) Description 02/18/2023 Orders [place] [phone] Jazmin Levine RN Non-ST elevation myocardial infarction (NSTEMI) Social History Tobacco Use Types Packs/Day Years Used Date Smoking Tobacco: Never Smokeless Tobacco: Never Alcohol Use Standard Drinks/Week Comments Never 0 (1 standard drink = 0.6 oz pur e alcohol) [facility] Utilities Answer Date Recorded [...] Tech [place] [address] Channing Escobedo [place] 10/08/2023 9:30 AM EDT Office [place] [phone] MD [facility] [place] [address] 10/21/2023 10:30 AM EDT Appointment [place] [address] Mary Reyes [facility] [place] [address] 10/21/2023 11:30 AM EDT Appointment [place] [address] Mary Reyes [facility] [place] [address] 10/21/2023 12:30 PM EDT Appointment [place] [address] Mary Reyes [facility] [place] [address] 10/21/2023 1:30 PM EDT Appointment [place] [address] Mary Reyes [facility] [place] [address] 10/21/2023 2:30 PM EDT Appointment [place] [address] Mary Reyes [facility] [place] [address] 10/26/2023 4:00 PM EDT Office Visit Cardiology at [address] [phone] Jaspreet Kinsey MD [facility] [place] [address] 10/28/2023 9:00 AM EDT Office [place] [address] 10/29/2023 10:00 AM EDT Clinical [place] [address] 10/29/2023 10:15 AM EDT Procedure [place] [address] 11/01/2023 5:00 PM EDT Office Visit Gastroenterology at [address] Selene Browning, PhD [facility] [place] [address] 11/22/2023 4:40 PM EDT Office Visit Cardiology at [place] [phone] Porsha Mcdaniels MD [facility] [place] [address] 12/13/2023 10:00 AM EDT Clinical Support Gastroenterology at [place] [phone] Lucero Romero, [facility] [place] [address] Scheduled Referrals Name Type Priority Associated Diagnoses Orde r Schedule Referral to Cardiac Rehab Outpatient Referral Routine Non-ST elevation myocardial infarction (NSTEMI) Ordered: 02/18/2023 documented as of this encounter Visit Diagnoses Diagnosis Non-ST elevation myocardial infarction (NSTEMI) Acute myocardial infarction, subendocardial infarction, episode of care unspecified documented in this encounter Care Teams Helmet Hat Brim Cutter Relationship Specialty Start Date End Date Polo Pearce PA [address] [place] [address] PCP - General Internal Medicine 06/09/21 documented as of this encounter
--- OUTSIDE RECORDS SUMMARY | 2023-10-02 22:45 | XMS_ITS | Encounter Summary ---
Author Organization [facility] [place] [address] Care Team Providers Care Telegraph Plant Maintainer Name Role Phone Polo Pearce Primary Care Provider [phone] Reason for Visit * Reason Onset Date Comments Post Procedure Call 04/08/2023 Encounter Details Date Type Department Care Team (Late st Contact Info) Description 04/08/2023 Notes Only Cardiology at [address] [phone] Mary Motta, RN Post Procedure Call Social History Tobacco Use Types Packs/Day Years Used Date Smoking Tobacco: Never Smokeless Tobacco: Never Alcohol Use Standard Drinks/Week Comments Never 0 (1 standard drink = 0.6 oz pur e alcohol) [facility] Utilities Answer Date Recorded In the past 12 months has e [email or web address], gas, oil, or water [employer] threatened to shut off services in your [...] with Dr. Tovar in 1-[address] [facility] Catheter Insertion Area Care - [...] of any new medications initiated at the [facility]. The patient should be aware and [...] his/her physician or the Cardiac Electrophysiology Service ([phone]). documented in this encounter Plan of Treatment Upcoming Encounters Date Type Department Care Team (Late st Contact Info) Description 10/08/2023 8:30 AM EDT Tech [place] [address] Channing Escobedo [place] 10/08/2023 9:30 AM EDT Office [place] [address] MD [facility] [place] [address] 10/21/2023 10:30 AM EDT Appointment [place] [address] Mary Reyes APRN [facility] [place] [address] 10/21/2023 11:30 AM EDT Appointment [place] [address] Mary Reyes APRN [facility] [place] [address] 10/21/2023 12:30 PM EDT Appointment [place] [address] Mary Reyes [facility] [place] [address] 10/21/2023 1:30 PM EDT Appointment [place] [address] Mary Reyes [facility] [place] [address] 10/21/2023 2:30 PM EDT Appointment [place] [address] [place] [address] 10/26/2023 4:00 PM EDT Office Visit Cardiology at [address] [phone] Jaspreet Kinsey MD [facility] [address] 10/28/2023 9:00 AM EDT [place] [address] 10/29/2023 10:00 AM EDT Clinical [place] [address] 10/29/2023 10:15 AM EDT Procedure [place] [address] 11/01/2023 5:00 PM EDT Office [place] [phone] Selene Browning, PhD [facility] [place] [address] 11/22/2023 4:40 PM EDT Office Visit Cardiology at [address] [phone] Porsha Mcdaniels MD [facility] [place] [address] 12/13/2023 10:00 AM EDT Clinical [place] [phone] Lucero Romero, [place] [facility] [place] [address] documented as of this encounter Visit Diagnoses Not on filedocumented in this encounter Care Teams Telegraph Plant Maintainer Relationship Specialty Start Date End Date Polo Pearce PA [address] [place] [address] PCP - General Internal Medicine 06/09/21 documented as of this encounter
--- OUTSIDE RECORDS SUMMARY | 2023-10-02 22:45 | XMS_ITS | Encounter Summary ---
Author Organization [facility] [place] [address] Care Team Providers Care Montessori Preschool Teacher Name Role Phone Polo Pearce Primary Care Provider [phone] Encounter Details Date Type Department Care Team (Late st Contact Info) Description 04/16/2023 Telephone Cardiology at [address] [phone] Vaishnavi Pratt MD [facility] [place] [address] Social History Tobacco Use Types Packs/Day Years Used Date Smoking Tobacco: Never Smokeless Tobacco: Never Alcohol Use Standard Drinks/Week Comments Never 0 (1 standard drink = 0.6 oz pur e alcohol) [facility] Utilities Answer Date Recorded In the past 12 months has [employer], gas, oil, or water [employer] threatened to shut off services in your [...] in a half-way (including now)? No 02/10/2023 IPV Inpatient Questions [...] Date: 04/16/23 Referring Provider: Jaylon Patient Location: [facility] HPI: 53 y.o. 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 Preceding this, she has documented sustained narrow complex tachycardia on 06/13/2021 in the context of hospitalization at [facility] for NSTEMI. 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 So she was transferred to [facility] for EPS and ablation. She now presents to [facility] with chest discomfortthat started overnight. Upon chart review of Rn notes, patient reports that prior to the procedure she was having chest pain, worse with laying flat. She continued to have feelings of warmth and diaphoresis which improvedmildly immediately after procedure but resumed a few days after. Patient also had an admission to [facility] for chest pain on 02/11/23 and it [...] that was done by the on-call overnight certified scrum master, there is no significant change in biventricular [...] and Asa load. Will accept patient to [facility] for further workup. Although history sounds suspicious for pericarditis, recent ESR/CRP were normal. Suspect at [facility] patient will need to complete ischemic workup. Recommendations: Heparin gtt, Asa load, High intensity statin Transfer to [facility] Above recommendations were based on my discussion with OSH; I have not personally interviewed or examined this patient. Advised to call the transfer center back with any changes in the patient condition. Vaishnavi Pratt MD Field Interviewer documented in this encounter Plan of Treatment Upcoming Encounters Date Type Department Care Team (Late st Contact Info) Description 10/08/2023 8:30 AM EDT Tech Visit Vascular Lab at [place] [phone] Channing Escobedo [place] 10/08/2023 9:30 AM EDT Office [place] [phone] MD [facility] [place] [address] 10/21/2023 10:30 AM EDT Appointment [place] [phone] Mary Reyes APRN [place] [address] 10/21/2023 11:30 AM EDT Appointment [place] [phone] Mary Reyes APRN [facility] [place] [address] 10/21/2023 12:30 PM EDT Appointment [place] [phone] [place] [address] 10/21/2023 1:30 PM EDT Appointment [place] [address] [place] [address] 10/21/2023 2:30 PM EDT Appointment [place] [address] [place] [address] 10/26/2023 4:00 PM EDT Office Visit Cardiology at [address] [address] Jaspreet Kinsey MD [facility] [place] [address] 10/28/2023 9:00 AM EDT Office [place] [address] 10/29/2023 10:00 AM EDT Clinical [place] [address] 10/29/2023 10:15 AM EDT Procedure [place] [address] 11/01/2023 5:00 PM EDT Office [place] [phone] Selene Browning, PhD [facility] [place] [address] 11/22/2023 4:40 PM EDT Office Visit Cardiology at [address] [address] Porsha Mcdaniels MD [facility] [place] [address] 12/13/2023 10:00 AM EDT Clinical [place] [phone] [facility] [place] [address] documented as of this encounter Visit Diagnoses Not on filedocumented in this encounter Care Teams Montessori Preschool Teacher Relationship Specialty Start Date End Date Polo Pearce PA [address] [place] [address] PCP - General Internal Medicine 06/09/21 documented as of this encounter
--- OUTSIDE RECORDS SUMMARY | 2023-10-02 22:45 | XMS_ITS | Encounter Summary ---
Author Organization [facility] [place] [address] Care Team Providers Care State Editor Name Role Phone Polo Pearce Primary Care Provider [phone] Reason for Visit * Reason Onset Date Comments Pre Procedure Call 03/16/2023 Encounter Details Date Type Department Care Team (Late st Contact Info) Description 03/16/2023 Telephone Cardiology at [address] [phone] Mary Motta, RN Pre Procedure Call Social History Tobacco Use Types Packs/Day Years Used Date Smoking Tobacco: Never Smokeless Tobacco: Never Alcohol Use Standard Drinks/Week Comments Never 0 (1 standard drink = 0.6 oz pur e alcohol) [facility] [place] Utilities Answer Date Recorded In the past 12 months has [employer], gas, oil, or water [employer] threatened to shut off services in your [...] ESTSummary: Pre Procedure Call: SVT Ablation EP HOME THEATER EXPERT COORDINATION CHECKLIST Patient Name: Indira Roque Patient Performing Gluer Machine Setup Operator: Jed Tovar Referring Provider: Jaspreet Kinsey Date of Procedure: 04/01/23 Arrival Time/ Case Time: 6:00 am / 7:30 am Check In Location: [facility] 4W Date Patient was Called: 04/01/23 Procedure: SVT Ablation Company: [employer] Type: RF Orders: Yes Lab Orders: Yes [...] overnight , understands that they will need straddle truck driver on day of discharge Notified pt that Esqueda catheter may be placed on day of procedure depending on type & duration of case. documented in this encounter Plan of Treatment Upcoming Encounters Date Type Department Care Team (Late st Contact Info) Description 10/08/2023 8:30 AM EDT Tech Visit Vascular Lab at [place] [phone] Channing Escob[place] 10/08/2023 9:30 AM EDT Office [place] [address] MD [facility] [place] [address] 10/21/2023 10:30 AM EDT Appointment [place] [phone] Mary Reyes [place] [address] 10/21/2023 11:30 AM EDT Appointment [place] [phone] Mary Reyes [facility] [place] [address] 10/21/2023 12:30 PM EDT Appointment [place] [phone] Mary Reyes [place] [address] 10/21/2023 1:30 PM EDT Appointment [place] [address] Mary Reyes APRN [facility] [place] [address] 10/21/2023 2:30 PM EDT Appointment [place] [address] Mary Reyes APRN [facility] [place] [address] 10/26/2023 4:00 PM EDT Office Visit Cardiology at [address] [phone] Jaspreet Kinsey MD [facility] [place] [address] 10/28/2023 9:00 AM EDT Office [place] [address] 10/29/2023 10:00 AM EDT Clinical Support [place] [address] 10/29/2023 10:15 AM EDT Procedure visit [place] [address] 11/01/2023 5:00 PM EDT Office [place] [address] Selene Browning, PhD [facility] [place] [address] 11/22/2023 4:40 PM EDT Office Visit Cardiology at [address] [phone] Porsha Mcdaniels MD [facility] [place] [address] 12/13/2023 10:00 AM EDT Clinical [place] [address] Lucero Romero, RD [facility] [place] [address] documented as of this encounter Visit Diagnoses Not on filedocumented in this encounter Care Teams State Editor Relationship Specialty Start Date End Date Polo Pearce PA [address] [place] [address] PCP - General Internal Medicine 06/09/21 documented as of this encounter
--- OUTSIDE RECORDS SUMMARY | 2023-10-02 22:45 | XMS_ITS | Encounter Summary ---
Author Organization [facility] Address [facility] [place] [address] Care Team Providers Care Wigs Salesperson Name Role Phone Polo Pearce Primary Care Provider [phone] Reason for Visit * Reason Comments Palpitations SVT Encounter Details Date Type Department Care Team (Late st Contact Info) Description 03/22/2023 4:20 PM EST Office Visit Cardiology at [address] [phone] Jaspreet Kinsey MD [facility] [place] [address] SVT (supraventricular tachycardia); Pulmonary embolism without acute cor pulmonale, unspecified chronicity, unspecified pulmonary embolism type; Paroxysmal atrial fibrillation; Heart failure with preserved ejection fraction, unspecified HF chronicity Social History Tobacco Use Types Packs/Day Years Used Date Smoking Tobacco: Never Smokeless Tobacco: Never Alcohol Use Standard Drinks/Week Comments Never 0 (1 standard drink = 0.6 oz pur e alcohol) [facility] Utilities Answer Date Recorded In the past 12 months has [employer], gas, oil, or water [employer] threatened to shut off services in your [...] in early February; she was transferred to [facility]. At that interface, amlodipine was discontinued due to mild peripheral edema, and bumex was changed to torsemide ( the latter for unclear reason). Ranexa was also initiated, as was aldactone; the latter to preserve eukalemia. The former was discontinued due to fogginess/dizziness, with quick resolution of symptoms. Since then, she has been doing well. She has been participating in cardiac rehab at [facility] and finds herself making gains in exertional [...] 30 DAYS fluticasone propionate (FLONASE) 50 mcg/actuation [place], Suspension 1 spray, Each Nare, DAILY gabapentin [...] upper lobe. Started on eliquis 08/2022 TTE ([facility]): normal bi-v s/f. No significant VHD (HFpEF) heart failure with preserved ejection fraction 05/2021: subacute, presented to [facility] with RUQ pain, weight gain, and progressive [...] AM EDT Tech [place] [phone] [address] [place] 10/08/2023 9:30 AM EDT Office Visit [place] [phone] MD [facility] [place] [address] 10/21/2023 10:30 AM EDT Appointment [place] [address] Mary Reyes [facility] [place] [address] 10/21/2023 11:30 AM EDT Appointment [place] [address] Mary Reyes [facility] [place] [address] 10/21/2023 12:30 PM EDT Appointment [place] [address] [place] [address] 10/21/2023 1:30 PM EDT Appointment [place] [address] [place] [address] 10/21/2023 2:30 PM EDT Appointment [place] [address] Mary Reyes [facility] [place] [address] 10/26/2023 4:00 PM EDT Office Visit Cardiology at [address] [phone] Jaspreet Kinsey MD [facility] [place] [address] 10/28/2023 9:00 AM EDT Office [place] [address] 10/29/2023 10:00 AM EDT Clinical Support [place] [address] 10/29/2023 10:15 AM EDT Procedure [place] [address] 11/01/2023 5:00 PM EDT Office Visit Gastroenterology at [place] [phone] Selene Browning, PhD [facility] [place] [address] 11/22/2023 4:40 PM EDT Office Visit Cardiology at [address] [address] Porsha Mcdaniels MD [facility] [place] [address] 12/13/2023 10:00 AM EDT Clinical Support [place] [address] Lucero Romero, ALVA [facility] [place] [address] documented as of this encounter Visit Diagnoses Diagnosis SVT (supraventricular tachycardia) Other specified cardiac dysrhythmias Pulmonary embolism without acute cor pulmonale, unspecified chronicity, unspecified pulmonary embolism type Paroxysmal atrial fibrillation Atrial fibrillation Heart failure with preserved ejection fraction, unspecified HF chronicity documented in this encounter Care Teams Wigs Salesperson Relationship Specialty Start Date End Date Polo Pearce PA Sb [address] [place] [address] PCP - General Internal Medicine 06/09/21 documented as of this encounter
--- OUTSIDE RECORDS SUMMARY | 2023-10-02 22:45 | XMS_ITS | Encounter Summary ---
[place] [address] Care Team Providers Care Knife Cutter Name Role Phone Polo Pearce Primary Care Provider [phone] Reason for Visit * Auth/Cert (Routine) Specialty [...] Tovar MD [facility] [place] [address] [facility] Referral ID Status Reason Start Date Expiration Date Visits Re quested Visits Authorized [id number] 1 1 Encounter Details Date Type Department Care Team (Late st Contact Info) Description 04/01/2023 7:30 AM EST - 04/01/2023 12:00 PM EST Surgery [place] [address] Jed Tovar MD [facility] [place] [address] ELECTROPHYSIOLOGY PROCEDURE Social History Tobacco Use Types Packs/Day Years Used Date Smoking Tobacco: Never Smokeless Tobacco: Never Alcohol Use Standard Drinks/Week Comments Never 0 (1 standard drink = 0.6 oz pur e alcohol) [facility] Utilities Answer Date Recorded In [...] Indira Roque Patient Age: 53 y.o. Language: Solomon Islander Race: White Ethnicity: Not nor Admit [...] Cardiac Electrophysiology - Weekends and holidays call [phone]; ask for human resources executive assistant transition rn. Discharge Diagnoses (Hospital Problems) and Secondary Diagnoses [...] 06/13/2021 in the context of hospitalization at [facility] for NSTEMI. A rapidly conducted narrow complex [...] days. Refills: 0 fluticasone propionate 50 mcg/actuation [place], Suspension Commonly known as: Flonase 1 spray [...] 3:00 PM Jaspreet Kinsey MD Cardiology at [place] Arrive at: [facility] [address] [phone] Discharge References/Attachments None documented in this encounter [...] as needed. fluticasone propionate (FLONASE) 50 mcg/actuation [place], Suspension 1 spray by Each Nare [...] H&P Referring Provider: Jaspreet Kinsey MD [facility] [place] [address] Attending Provider: Jed Tovar MD Planned Procedure: EP study and SVT ablation Background and rationale for the procedure: Indira Roque is a 53 y.o. woman with paroxysmal atrial fibrillation, heart failure with preserved EF, and chronic angina with non-obstructive ASCVD but significant calcifications per coronary CTA. She has documented sustained narrow complex tachycardia on 06/13/2021 in the context of hospitalization at [facility] for NSTEMI. A rapidly conducted narrow complex [...] as needed. fluticasone propionate (FLONASE) 50 mcg/actuation [place], Suspension 1 spray by Each Nare [...] in agreement. Dr. Jed Tovar, electrophysiology attending ([id number]) documented in this encounter Procedure Notes * [...] jittery Break coverage by Luiza Peña RN [phone]. PACU D/C criteria met at 1300 1345 Hand off to ERWIN Gomez SDP documented in this encounter Miscellaneous Notes * Brief Op Note - Jed Tovar MD - 04/01/2023 11:07 AM EST Brief Operative Note Patient Name: Indira Roque : [id number] MR#: [id number] Case Date: 04/01/2023 Surgeon: Surgeon(s) and Role: [...] AM EDT Tech Visit Vascular Lab at [place] [phone] [place] 10/08/2023 9:30 AM EDT Office [place] [address] MD [facility] [place] [address] 10/21/2023 10:30 AM EDT Appointment Nuclear Medicine at [place] [phone] Mary Reyes HOTEL VALET ATTENDANT [facility] [place] [address] 10/21/2023 11:30 AM EDT Appointment [place] [phone] Mary Reyes HOTEL VALET ATTENDANT [facility] [place] [address] 10/21/2023 12:30 PM EDT Appointment [place] [address] [place] [address] 10/21/2023 1:30 PM EDT Appointment [place] [address] [place] [address] 10/21/2023 2:30 PM EDT Appointment [place] [phone] [place] [address] 10/26/2023 4:00 PM EDT Office Visit Cardiology at [address] [phone] Jaspreet Kinsey MD [facility] [place] [address] 10/28/2023 9:00 AM EDT Office Visit [place] [address] 10/29/2023 10:00 AM EDT Clinical Support [place] [address] 10/29/2023 10:15 AM EDT Procedure visit [place] [address] 11/01/2023 5:00 PM EDT Office Visit [place] [address] Selene Browning, PhD [facility] [place] [address] 11/22/2023 4:40 PM EDT Office Visit Cardiology at [address] [phone] Porsha Mcdaniels MD [facility] [place] [address] 12/13/2023 10:00 AM EDT Clinical Support [place] [address] [facility] [place] [address] documented as of this encounter [...] (Bezet) 519 ms MUSE SYSTEM Calculated P [place] 44 degrees MUSE SYSTEM Calculated R [place] 41 degrees MUSE SYSTEM Calculated T [place] 36 degrees MUSE SYSTEM INTERPRETATION Normal sinus [...] not included. ELECTROPHYSIOLOGY STUDY AND SVT ABLATION Elocution Teacher: Jed Tovar MD Fellow: Jaspreet Grimm MD Referring: Jaspreet Kinsey MD Patient History: Indira Roque is a 53 y.o. woman with one episode of paroxysmal atrial fibrillation, heart failure with preserved EF, and chronic angina with non-obstructive ASCVD but significant calcifications per coronary CTA. She has documented sustained narrow complex tachycardia on 06/13/2021 in the context of hospitalization at [facility] for NSTEMI. A rapidly conducted narrow complex [...] with Dr. Tovar in 1-3 ??months at [facility] 5. 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 Procedures performed: SVT ablation (cpt 26105); induce post IV drug (cpt 79397-56-79) I have read, edited and approve of [...] (Bezet) 522 ms MUSE SYSTEM Calculated P [place] 50 degrees MUSE SYSTEM Calculated R [place] 69 degrees MUSE SYSTEM Calculated T [place] 16 degrees MUSE SYSTEM INTERPRETATION Sinus bradycardia Lateral infarct , age undetermined Prolonged QT Abnormal ECG When compared with ECG of 22-MAR-2023 16:45, (unconfirmed) T wave inversion no longer evident in Anterior leads QT has lengthened I personally reviewed the tracing and edited the fellows interpretation Confirmed by fellow MD Nas, Max ([id number]) on 04/01/2023 3:35:42 PM Confirmed by MD NAILA, KAUSHIK ([id number]) on 04/02/2023 8:28:26 AM MUSE SYSTEM 04/01/2023 7:31 AM EST 04/02/2023 8:28 AM EST Jed Tovar MD ECG ORDERABLES MUSE SYSTEM * Differential, Automated (04/01/2023 7:20 AM EST) Pathologist [facility] Neutrophils % 53.2 % [facility] Neutr Abs (ANC) 3.51 1.70 - 6.10 x10(3)/[facility] Lymphocytes % 32.4 % [facility] Lymphocytes Abs 2.1 0.9 - 3.2 x10(3)/[facility] Monocytes % 8.7 % [facility] Monocyte Abs 0.6 0.3 - 0.9 x10(3)/[facility] Eosinophils % 4.6 % [facility] Eosinophils Abs 0.3 0.0 - 0.4 x10(3)/[facility] Basophils % 0.8 % [facility] Basophils Abs 0.0 0.0 - 0.1 x10(3)/[facility] Immature Gran % 0.30 % [facility] Comment: Immature granulocytes(IG's)percentage and absolute count will include metamyelocytes, myelocytes, and promyelocytes. Blood smears from CBCs yielding IG's will be scanned manually for concordance. If this scan disagrees with the automated IG or if promyelocytes are noted, a manual differential will be performed. Shonda Gran Abs 0.02 0.00 - 0.04 x10(3)/[facility] Blood 04/01/2023 7:20 AM EST 04/01/2023 7:33 AM EST Narrative Resulting Agency Comment Spec In Lab Jed Tovar MD HEMATOLOGY ORDERABLE S Performing Organization Address City/State/[facility] Co de Phone Number [facility] [place] [address] * (ABNORMAL) Hemogram (04/01/2023 7:20 AM EST) WBC 6.6 4.0 - 9.5 x10(3)/[facility] RBC 4.56 4.00 - 5.21 x10(6)/[facility] Hemoglobin 14.1 11.7 - 15.5 g/dL [facility] Hematocrit 43.1 35.7 - 45.8 % [facility] MCV 94.5(H) 82.6 - 94.4 fL [facility] MCH 30.9 27.1 - 32.0 pg [facility] MCHC 32.7 31.7 - 35.0 g/dL [facility] Platelets 229 145 - 357 x10(3)/[facility] RDWSD 44.7 37.0 - 46.0 fL [facility] RDWCV 12.7 11.5 - 14.1 % [facility] MPV 11.7 7.6 - 12.9 fL [facility] nRBC % Auto 0.0 % [facility] nRBC Abs Auto 0.000 0.000 - 0.000 x10(3)/[facility] Blood 04/01/2023 7:20 AM EST 04/01/2023 7:33 AM EST Narrative Resulting Agency Comment Spec In Lab Jed Tovar MD HEMATOLOGY ORDERABLE S [facility] [place] [address] * (ABNORMAL) BMP w/fasting Glucose (04/01/2023 7:20 AM EST) Glucose Fasting 99 65 - 99 mg/dL [facility] [...] 18 mg/dL [facility] Creatinine 1.10 0.70 - 1.20 mg/dL [facility] Sodium 139 135 - 145 mmol/L [facility] Potassium 4.2 3.5 - 5.0 mmol/L [facility] Comment: Please note: ??Patients with WBC >100,000 may have falsely elevated Potassium levels. ??For accurate Potassium quantification in these patients send serum separator tube (gold top) for subsequent determinations. ??Contact the Clinical Chemistry Laboratory if there are any questions. Chloride 108(H) 98 - 107 mmol/L [facility] CO2 22 22 - 31 mmol/L [facility] Anion Gap 9 5 - 15 mmol/L [facility] Calcium 9.6 8.5 - 10.5 mg/dL [facility] Estimated GFR 60 >=60 mL/min/1. 73 m?? [facility] [...] In Lab Jed Tovar MD CHEMISTRY ORDERABLES [facility] [place] [address] documented in this encounter Visit Diagnoses Diagnosis [...] on Aura 24 at 1112, Until Aura 1/24 at 1558, Pain, Moderate to severe pain (6-10 out of 10), Hold for respiratory rate less than 10 per minute. Maximum dose 200 mcg over one hour, including OR administration. If ordered with HYDROmorphone or morphine, give HYDROmorphone or morphine first and use fentaNYL for breakthrough pain., PACU Recovery, Routine documented in this encounter Care Teams Knife Cutter Relationship Specialty Start Date End Date Polo Pearce PA [address] [place] [address] PCP - General Internal Medicine 06/09/21 documented as of this encounter
--- OUTSIDE RECORDS SUMMARY | 2023-10-02 22:45 | XMS_ITS | Encounter Summary ---
Author Organization [place] [address] Care Team Providers Care Research Fellow Name Role Phone Polo Pearce Primary Care Provider [phone] Encounter Details Date Type Department Care Team (Late st Contact Info) Description 04/16/2023 Ancillary Procedure [place] [address] Social History Tobacco Use Types Packs/Day Years [...] AM EDT Tech [place] [phone] [place] 10/08/2023 9:30 AM EDT Office [place] [address] MD [facility] [place] [address] 10/21/2023 10:30 AM EDT Appointment [place] [address] Mary Reyes APRN [facility] [place] [address] 10/21/2023 11:30 AM EDT Appointment [place] [phone] Mary Reyes APRN [facility] [place] [address] 10/21/2023 12:30 PM EDT Appointment [place] [address] Mary Reyes [facility] [place] [address] 10/21/2023 1:30 PM EDT Appointment [place] [address] Mary Reyes [facility] [place] [address] 10/21/2023 2:30 PM EDT Appointment [place] [address] Mary Reyes, [facility] [place] [address] 10/26/2023 4:00 PM EDT Office Visit Cardiology at [address] [phone] Jaspreet Kinsey MD [facility] [place] [address] 10/28/2023 9:00 AM EDT Office [place] [address] 10/29/2023 10:00 AM EDT Clinical [place] [address] 10/29/2023 10:15 AM EDT Procedure [place] [address] 11/01/2023 5:00 PM EDT Office [place] [phone] Selene Browning, PhD [facility] [place] [address] 11/22/2023 4:40 PM EDT Office Visit Cardiology at [place] [phone] Porsha Mcdaniels MD [facility] [place] [address] 12/13/2023 10:00 AM EDT Clinical Support Gastroenterology at [address] Lucero Romero, RD [facility] [place] [address] documented as of this encounter Procedures Procedure [...] on filedocumented in this encounter Care Teams Research Fellow Relationship Specialty Start Date End Date Polo Pearce PA [address] [place] [address] PCP - General Internal Medicine 06/09/21 documented as of this encounter
--- OUTSIDE RECORDS SUMMARY | 2023-10-02 22:45 | XMS_ITS | Encounter Summary ---
Author Organization [facility] Address [facility] [place] [address] Care Team Providers Care Flotation Tender Helper Name Role Phone Polo Pearce Primary Care Provider [phone] Encounter Details Date Type Department Care Team [...] AM EDT Tech [place] [address] [place] 10/08/2023 9:30 AM EDT Office Visit Vascular [place] [address] MD [facility] [place] [place] [address] 10/21/2023 10:30 AM EDT Appointment Nuclear Medicine at [place] [phone] Mary Reyes LIVESTOCK YARD SUPERVISOR [facility] [address] 10/21/2023 11:30 AM EDT Appointment [place] [phone] Mary Reyes LIVESTOCK YARD SUPERVISOR [facility] [address] 10/21/2023 12:30 PM EDT Appointment [place] [address]-1000 Mary Reyes LIVESTOCK YARD SUPERVISOR [facility] [address] 10/21/2023 1:30 PM EDT Appointment [place] [address] [place] [address] 10/21/2023 2:30 PM EDT Appointment [place] [address] [place] [address] 10/26/2023 4:00 PM EDT Office Visit Cardiology at [address] [phone] Jaspreet Kinsey MD [facility] [place] [address] 10/28/2023 9:00 AM EDT Office [place] [address] 10/29/2023 10:00 AM EDT Clinical Support [place] [address] 10/29/2023 10:15 AM EDT Procedure [place] [address] 11/01/2023 5:00 PM EDT Office Visit Gastroenter[place] [address] Selene Browning, PhD [facility] [place] [address] 11/22/2023 4:40 PM EDT Office Visit Cardiology at [address] [address] Porsha Mcdaniels MD [facility] [place] [address] 12/13/2023 10:00 AM EDT Clinical Support Gastro[place] [address] [facility] [place] [address] documented as of this encounter Visit Diagnoses Not on filedocumented in this encounter Care Teams Flotation Tender Helper Relationship Specialty Start Date End Date Polo Pearce PA [address] [place] [address] PCP - General Internal Medicine 06/09/21 documented as of this encounter
--- OUTSIDE RECORDS SUMMARY | 2023-10-02 22:45 | XMS_ITS | Encounter Summary ---
Author Organization [facility] [place] [address] Care Team Providers Care Certified Medication Aide Name Role Phone Polo Pearce Primary Care Provider [phone] Encounter Details Date Type Department Care Team (Late st Contact Info) Description 03/10/2023 Telephone Cardiology at [address] [place] [address] Nilda Mayes, RN Social History Tobacco Use Types Packs/Day Years Used Date Smoking Tobacco: Never Smokeless Tobacco: Never Alcohol Use Standard Drinks/Week Comments Never 0 (1 standard drink = 0.6 oz pur e alcohol) [facility] Utilities Answer Date Recorded In the past 12 months has e electric, gas, oil, or water [employer] threatened to shut off services in your [...] AM EDT Tech [place] [phone] [place] 10/08/2023 9:30 AM EDT Office [place] [address] MD [facility] [place] [address] 10/21/2023 10:30 AM EDT Appointment [place] [phone] Mary Reyes APRN [facility] [place] [address] 10/21/2023 11:30 AM EDT Appointment [place] [address] Mary Reyes [facility] [place] [address] 10/21/2023 12:30 PM EDT Appointment [place] [address] Mary Reyes [facility] [place] [address] 10/21/2023 1:30 PM EDT Appointment [place] [address] [place] [address] 10/21/2023 2:30 PM EDT Appointment [place] [address] [place] [address] 10/26/2023 4:00 PM EDT Office Visit Cardiology at [address] [phone] Jaspreet Kinsey MD [facility] [place] [address] 10/28/2023 9:00 AM EDT Office Visit [place] [address] 10/29/2023 10:00 AM EDT Clinical Support [place] [address] 10/29/2023 10:15 AM EDT Procedure visit [place] [address] 11/01/2023 5:00 PM EDT Office Visit Gastroenterology at [place] [phone] Selene Browning, PhD [facility] [place] [address] 11/22/2023 4:40 PM EDT Office Visit Cardiology at [place] [phone] Porsha Mcdaniels MD [facility] [place] [address] 12/13/2023 10:00 AM EDT Clinical [place] [address] [facility] [place] [address] documented as of this encounter Visit Diagnoses Not on filedocumented in this encounter Care Teams Certified Medication Aide Relationship Specialty Start Date End Date Polo Pearce PA [address] [place] [address] PCP - General Internal Medicine 06/09/21 documented as of this encounter
--- OUTSIDE RECORDS SUMMARY | 2023-10-02 22:45 | XMS_ITS | Encounter Summary ---
[place] [address] Care Team Providers Care Medical Laboratory Technicians Name Role Phone Polo Pearce Primary Care Provider [phone] Reason for Visit * Auth/Cert (Routine) Specialty [...] THER/DX INTERVENT ELECTROPHYSIOLOGY PROCEDURE Jed Tovar MD [facility] [place] [address] RUST Referral ID Status Reason Start Date Expiration Date Visits Re quested Visits Authorized [id number] 1 1 Encounter Details Date Type Department Care Team (Late st Contact Info) Description 04/01/2023 7:39 AM EST Anesthesia Event [place] [phone] Merlin Lozoya MD [facility] [address] Anesthesia Record Procedure Summary Procedure Name Responsible [...] Airways Type Details Placement Removal PIV 04/01/23; 722; 20 gauge; cephalic vein (lateral side of arm), left; distraction, intradermal injection, tolerated well; 04/01/23; 1532 04/01/23 07 by Patricia Singer RN 04/01/23 153 by Gianna Bland RN ETT Mask Ventilation: Adjunct (2); ETT Type: Cuffed; ETT Size: 7.5 mm; Mac Blade: 3; Notes: Asleep, Pre-O2, Stylette; Attempts: 1; Laryngoscopy Grade: 1; ETT Placement Verified By: Auscultation, Visual, Capnometry; Secured at Teeth: 22 cm; Inserted by: tanja; Removal Date: 04/01/23; Removal Time: 11104/01/23 0750 by Jaspreet Perry, FURNACE REPAIRER HELPER 04/01/23 1119 by Merlin Lozoya MD PIV 04/01/23; 0754; 18 gauge; dorsal arch vein (top of hand), right; Anatomical Landmarks; tanja; no longer indicated; 04/01/23; 1551 04/01/23 0754 by Jaspreet Perry, FURNACE REPAIRER HELPER 04/01/23 1551 by Gianna Bland RN LDA Cath/EP Sheath 04/01/23; 0823; 6.5 Iraqi (Fr); Left, Anterior; Femoral; Venous 04/01/23 0823 by Mary Herman RN 04/01/23 1056 by Mary Herman RN LDA Cath/EP Sheath 04/01/23; 0825; 6.5 Iraqi (Fr); Left, Anterior; Femoral; Venous 04/01/23 0825 by Mary Herman RN 04/01/23 1057 by Mary Herman RN LDA Cath/EP Sheath 04/01/23; 0825; 6.5 Iraqi (Fr); Left, Anterior; Femoral; Venous 04/01/23 0825 by Mary Herman RN 04/01/23 1057 by Mary Herman RN LDA Cath/EP Sheath 04/01/23; 0827; 6.5 Iraqi (Fr); Right, Anterior; Femoral; Venous 04/01/23 0827 by Mary Herman RN 04/01/23 1057 by Mary Herman RN LDA Cath/EP Sheath 04/01/23; 0833; 5.5 Iraqi (Fr); Right, Anterior; Femoral; Venous 04/01/23 0833 by Mary Herman RN 04/01/23 1058 by Mary Herman RN documented in this encounter Social History Tobacco Use Types Packs/Day Years Used Date Smoking Tobacco: Never Smokeless Tobacco: Never Alcohol Use Standard Drinks/Week Comments Never 0 (1 standard drink = 0.6 oz pur e alcohol) [facility] Utilities Answer Date Recorded In the [...] a nursing home (including now)? No 02/10/2023 Sex and [...] Date: 04/01/23 Room / Location: [facility] B-LAB ROOM 4 / [facility] Anesthesia Start: 738 Anesthesia Stop: 1130 Procedure: ELECTROPHYSIOLOGY PROCEDURE Diagnosis: SVT (supraventricular tachycardia) (SVT (supraventricular tachycardia) [I47.10]) Providers: Jed Tovar MD Responsible Provider: Merlin Lozoya MD Anesthesia Type: general ASA Status: 3 All Anesthesia Providers: Anesthesiologist: Merlin Lozoya MD FURNACE REPAIRER HELPER: Jaspreet Perry CRNA Vitals Value Taken Time BP 104/58 04/01/23 1345 Temp 36.4 ??C (97.5 ??F) 04/01/23 1315 Pulse 66 04/01/23 1346 Resp 14 04/01/23 1346 SpO2 96 % 04/01/23 1346 Pain Level Vitals shown include unfiled device data. Patient Location: PACU/[facility] Level of Consciousness: Awake and [...] risks discussed with patient. Plan discussed with FURNACE REPAIRER HELPER. Anesthesia Screening documented in this encounter Plan of Treatment Upcoming Encounters Date Type Department Care Team (Late st Contact Info) Description 10/08/2023 8:30 AM EDT Tech Visit Vascular Lab at [place] [phone] Channing Escobedo [place] 10/08/2023 9:30 AM EDT Office [place] [address] MD [facility] [place] [address] 10/21/2023 10:30 AM EDT Appointment Nuclear Medicine at [place] [phone] [place] [address] 10/21/2023 11:30 AM EDT Appointment [place] [address] [place] [address] 10/21/2023 12:30 PM EDT Appointment [place] [address] [place] [address] 10/21/2023 1:30 PM EDT Appointment [place] [phone] [place] [address] 10/21/2023 2:30 PM EDT Appointment [place] [address] Mary Reyes APRN [facility] [place] [address] 10/26/2023 4:00 PM EDT Office Visit Cardiology at [address] [phone] Jaspreet Kinsey MD [facility] [address] 10/28/2023 9:00 AM EDT Office Visit [place] [address] 10/29/2023 10:00 AM EDT Clinical Support [place] [address] 10/29/2023 10:15 AM EDT Procedure visit [place] [address] 11/01/2023 5:00 PM EDT Office Visit Gastroenterology at [place] [phone] Selene Browning, PhD [facility] [place] [address] 11/22/2023 4:40 PM EDT Office Visit Cardiology at [address] [phone] Porsha Mcdaniels MD [facility] [address] 12/13/2023 10:00 AM EDT Clinical [place] [address] [facility] [place] [address] documented as of this encounter Visit Diagnoses [...] mg documented in this encounter Care Teams Medical Laboratory Technicians Relationship Specialty Start Date End Date Ramses, Polo, PA [address] [place] [address] PCP - General Internal Medicine 06/09/21 documented as of this encounter
--- OUTSIDE RECORDS SUMMARY | 2023-10-02 22:46 | XMS_ITS | Encounter Summary ---
Author Organization [facility] Address [facility] [place] [address] Care Team Providers Care Installer Interior Assemblies Name Role Phone Polo Pearce Primary Care Provider [phone] Reason for Visit * Reason Comments Congestive Heart Failure HFpEF Atrial Fibrillation Encounter Details Date Type Department Care Team (Late st Contact Info) Description 11/17/2022 9:00 AM EDT Office Visit Cardiology at [address] [phone] Jaspreet Kinsey MD [facility] [place] [address] Paroxysmal atrial fibrillation; Heart failure with preserved [...] In the interim, she was [place] [facility] [place] [facility] and whilst having an episode [...] 30 DAYS fluticasone propionate (FLONASE) 50 mcg/actuation [place], Suspension 1 spray, Each Nare, DAILY gabapentin [...] upper lobe. Started on eliquis 08/2022 TTE ([facility]): normal bi-v s/f. No significant VHD (HFpEF) heart failure with preserved ejection fraction 05/2021: subacute, presented to [facility] with RUQ pain, weight gain, and [...] EDT Tech Visit [place] [phone] [place] 10/08/2023 9:30 AM EDT Office Visit [place] [phone] MD [facility] [place] [address] 10/21/2023 10:30 AM EDT Appointment [place] [phone] Mary Reyes APRN [facility] [place] [address] 10/21/2023 11:30 AM EDT Appointment Nuclear Medicine at [facility] [address] Mary Reyes [facility] [place] [address] 10/21/2023 12:30 PM EDT Appointment [place] [address] Mary Reyes [facility] [place] [address] 10/21/2023 1:30 PM EDT Appointment [place] [address] [place] [address] 10/21/2023 2:30 PM EDT Appointment [place] [address] [place] [address] 10/26/2023 4:00 PM EDT Office Visit Cardiology at [address] [phone] Jaspreet Kinsey MD [facility] [place] [address] 10/28/2023 9:00 AM EDT Office [place] [address] 10/29/2023 10:00 AM EDT Clinical Support [place] [address] 10/29/2023 10:15 AM EDT Procedure [place] [address] 11/01/2023 5:00 PM EDT Office Visit [place] [phone] Selene Browning, PhD [facility] [place] [address] 11/22/2023 4:40 PM EDT Office Visit Cardiology at [address] [phone] Porsha Mcdaniels MD [facility] [place] [address] 12/13/2023 10:00 AM EDT Clinical Support [place] [phone] [facility] [place] [address] documented as of this encounter Visit Diagnoses Diagnosis Paroxysmal atrial fibrillation Atrial fibrillation Heart failure with preserved ejection fraction, unspecified HF chronicity Pulmonary embolism without acute cor pulmonale, unspecified chronicity, unspecified pulmonary embolism type Chronic heart failure with preserved ejection fraction documented in this encounter Care Teams Installer Interior Assemblies Relationship Specialty Start Date End Date Polo Pearce PA [address] [place] [address] PCP - General Internal Medicine 06/09/21 documented as of this encounter
--- OUTSIDE RECORDS SUMMARY | 2023-10-02 22:46 | XMS_ITS | Encounter Summary ---
Author [place] [address] Care Team Providers Care Clinical Appeals Reviewer Name Role Phone Polo Pearce Primary Care Provider [phone] Encounter Details Date Type Department Care Team (Late st Contact Info) Description 02/08/2023 [place] [phone] Unknown None Social History Tobacco Use Types Packs/Day Years Used Date Smoking Tobacco: Never Smokeless Tobacco: Never Alcohol Use Standard Drinks/Week Comments Never 0 (1 standard drink = 0.6 oz pur e alcohol) [facility] Utilities Answer Date Recorded In the [...] slept in a fdc (including now)? No 02/10/2023 Sex and Gender Information Value Date Recorded Sex Assigned at Not on file Gender Identity Not on file Sexual Orientation Not on file documented as of this encounter Plan of Treatment Upcoming Encounters Date Type Department Care Team (Late st Contact Info) Description 10/08/2023 8:30 AM EDT Tech [place] [phone] [place] [place] 10/08/2023 9:30 AM EDT Office [place] [address] MD [facility] [place] [address] 10/21/2023 10:30 AM EDT Appointment [place] [phone] Mary Reyes APRN [facility] [place] [address] 10/21/2023 11:30 AM EDT Appointment [place] [phone] Mary Reyes APRN [facility] [place] [address] 10/21/2023 12:30 PM EDT Appointment [place] [phone] Mary Reyes APRN [facility] [place] [address] 10/21/2023 1:30 PM EDT Appointment Nuclear Medicine at [place] [phone] Mary Reyes [facility] [place] [address] 10/21/2023 2:30 PM EDT Appointment [place] [phone] Mary Reyes [facility] [place] [address] 10/26/2023 4:00 PM EDT Office Visit Cardiology at [address] [phone] Jaspreet Kinsey MD [facility] [place] [address] 10/28/2023 9:00 AM EDT Office [place] [address] 10/29/2023 10:00 AM EDT Clinical [place] [address] 10/29/2023 10:15 AM EDT Procedure [place] [address] 11/01/2023 5:00 PM EDT Office [place] [phone] Selene Browning, PhD [facility] [place] [address] 11/22/2023 4:40 PM EDT Office Visit Cardiology at [address] [phone] Porsha Mcdaniels MD [facility] [place] [place] [address] 12/13/2023 10:00 AM EDT Clinical [place] [address] [facility] [place] [address] documented as of this encounter Procedures Procedure Name Priority Date/Time Associated Diagnosis Comments ECHOCARDIOGRAM TRANSTHORACIC Routine 02/08/2023 11:40 PM EST documented in this encounter Results * Echocardiogram Transthoracic (02/08/2023 11:40 PM EST) Anatomical Region Laterality Modality Cardiac Other 02/08/2023 11:4 0 PM EST Narrative 02/10/2023 3:09 PM EST [address] [place] [address] ? Echocardiogram Report Name: LOIDA ROQUE ?Study [...] without a pericardial effusion. Procedure Limited - 15382. Suboptimal quality. There is normal sinus rhythm. [...] Note Willy Gómez MD - 02/10/2023 1 [place] [address] Echocardiogram Report Name: LOIDA ROQUE Study Date: [...] without a pericardial effusion. Procedure Limited - [id number]. Suboptimal quality. There is normal sinus rhythm. [...] on filedocumented in this encounter Care Teams Clinical Appeals Reviewer Relationship Specialty Start Date End Date Polo Pearce PA [address] [place] [address] PCP - General Internal Medicine 06/09/21 documented as of this encounter
--- OUTSIDE RECORDS SUMMARY | 2023-10-02 22:46 | XMS_ITS | Encounter Summary ---
Author Organization [facility] Address [facility] [place] [address] Care Team Providers Care Email Marketer Name Role Phone Polo Pearce Primary Care Provider [phone] Reason for Visit * Reason Comments Congestive Heart Failure HFpEF Encounter Details Date Type Department Care Team (Late st Contact Info) Description 10/08/2022 4:00 PM EDT Office Visit Cardiology at [address] [phone] Jaspreet Kinsey MD [facility] [place] [address] Pulmonary embolism, unspecified chronicity, unspecified pulmonary embolism [...] through Care Everywhere. * Low Sodium Diet (Gambian) * Low Sodium Foods: General Info (Gambian) documented in this encounter Progress Notes * [...] be estimated Intercurrently, patient was [place] [facility] [place]. She presented after developing acute worseningof [...] 30 DAYS fluticasone propionate (FLONASE) 50 mcg/actuation [place], Suspension 1 spray, Each Nare, DAILY gabapentin [...] ejection fraction 05/2021: subacute, presented to [facility] with RUQ pain, weight gain, and progressive [...] AM EDT Tech Visit Vascular Lab at [place] [phone] [place] 10/08/2023 9:30 AM EDT Office [place] [address] MD [facility] [place] [address] 10/21/2023 10:30 AM EDT Appointment Nuclear Medicine at [place] [phone] Mary Reyes APRN [facility] [place] [address] 10/21/2023 11:30 AM EDT Appointment [place] [address] Mary Reyes APRN [facility] [place] [address] 10/21/2023 12:30 PM EDT Appointment [place] [address] Mary Reyes APRN [facility] [place] [address] 10/21/2023 1:30 PM EDT Appointment Nuclear Medicine at [place] [phone] Mary Reyes [employer] [facility] [place] [address] 10/21/2023 2:30 PM EDT Appointment [place] [phone] Mary Reyes [facility] [place] [address] 10/26/2023 4:00 PM EDT Office Visit Cardiology at [address] [phone] Jaspreet Kinsey MD [facility] [place] [address] 10/28/2023 9:00 AM EDT Office Visit [place] [address] 10/29/2023 10:00 AM EDT Clinical Support [place] [address] 10/29/2023 10:15 AM EDT Procedure visit [place] [address] 11/01/2023 5:00 PM EDT Office [place] [phone] Selene Browning, PhD [facility] [place] [address] 11/22/2023 4:40 PM EDT Office Visit Cardiology at [address] [phone] Porsha Mcdaniels MD [facility] [place] [address] 12/13/2023 10:00 AM EDT Clinical [place] [phone] [facility] [place] [address] documented as of this encounter Visit Diagnoses Diagnosis Pulmonary embolism, unspecified chronicity, unspecified pulmonary embolism type, unspecified whether acute cor pulmonale present Heart failure with preserved ejection fraction, unspecified HF chronicity Chronic heart failure with preserved ejection fraction documented in this encounter Care Teams Email Marketer Relationship Specialty Start Date End Date Polo Pearce PA [address] [place] [address] PCP - General Internal Medicine 06/09/21 documented as of this encounter
--- OUTSIDE RECORDS SUMMARY | 2023-10-02 22:46 | XMS_ITS | Encounter Summary ---
[place] [address] Care Team Providers Care Scrub Wheel Operator Name Role Phone Polo Pearce Primary Care Provider [phone] Encounter Details Date Type Department Care Team (Late st Contact Info) Description 10/20/2022 8:00 AM EDT Tech Visit [place] [phone] Florencia Callahan [place] Pulmonary embolism, unspecified chronicity, unspecified pulmonary [...] AM EDT Tech Visit [place] [address] [place] Escob[place] 10/08/2023 9:30 AM EDT Office [place] [address] MD [facility] [place] [address] 10/21/2023 10:30 AM EDT Appointment [place] [phone] [place] [address] 10/21/2023 11:30 AM EDT Appointment [place] [phone] [place] [address] 10/21/2023 12:30 PM EDT Appointment [place] [phone] Mary Reyes [facility] [place] [address] 10/21/2023 1:30 PM EDT Appointment [place] [address] [place] [address] 10/21/2023 2:30 PM EDT Appointment [place] [address] [place] [address] 10/26/2023 4:00 PM EDT Office Visit Cardiology at [address] [phone] Jaspreet Kinsey MD [facility] [place] [address] 10/28/2023 9:00 AM EDT [place] [address] 10/29/2023 10:00 AM EDT Clinical [place] [address] 10/29/2023 10:15 AM EDT [place] [address] 11/01/2023 5:00 PM EDT Office [place] [phone] Selene Browning, PhD [facility] [address] 11/22/2023 4:40 PM EDT Office Visit Cardiology at [address] [phone] Porsha Mcdaniels MD [facility] [place] [address] 12/13/2023 10:00 AM EDT Clinical [place] [phone] Lucero Romero, [facility] [place] [address] documented as of this encounter Procedures Procedure [...] (Bezet) 525 ms MUSE SYSTEM Calculated R [place] 41 degrees MUSE SYSTEM Calculated T [place] 40 degrees MUSE SYSTEM INTERPRETATION Atrial fibrillation Nonspecific ST and T wave abnormality Prolonged QTc Abnormal ECG When compared with ECG of 08-OCT-2022 16:19, Atrial fibrillation has replaced Sinus rhythm Vent. rate has increased BY ??34 BPM Nonspecific T wave abnormality, improved in Inferior leads QT has lengthened I personally reviewed the tracing and edited the fellows interpretation Confirmed by fellow Otis Rader ([id number]) on 10/20/2022 3:03:05 PM Confirmed by MD Maxwell Hannah ([id number]) on 10/20/2022 7:08:19 PM MUSE SYSTEM 10/20/2022 10:0 3 AM EDT 10/20/2022 7:08 PM EDT Unknown ECG ORDERABLES MUSE SYSTEM * Duplex Study for DVT, Bilat legs (10/20/2022 8:06 AM EDT) Pathologist [facility] VB Text Report Department: Vascular Surgery Lab Patient: [id number] (LOIDA ROQUE) CPT: [id number] Referring Physician: MAMIE MARX ?? Phone: Indications: [...] lab database for comparison. Electronically Signed by: ANOTNIETA CHAVEZ on 2022-10-20 04:05:07 PM [facility] VB Text Report End of Report [facility] 10/20/2022 8:06 AM EDT Mamie Marx APRN VASCULAR ORDERABLES [facility] documented in this encounter Visit Diagnoses Diagnosis Pulmonary embolism, unspecified chronicity, unspecified pulmonary embolism type, unspecified whether acute cor pulmonale present documented in this encounter Care Teams Scrub Wheel Operator Relationship Specialty Start Date End Date Polo Pearce PA [address] [place] [address] PCP - General Internal Medicine 06/09/21 documented as of this encounter
--- OUTSIDE RECORDS SUMMARY | 2023-10-02 22:46 | XMS_ITS | Encounter Summary ---
Author Organization [facility] [place] [address] Care Team Providers Care Rural Sociologist Name Role Phone Polo Pearce Primary Care Provider [phone] Encounter Details Date Type Department Care Team (Late st Contact Info) Description 02/08/2023 External [place] [phone] Social History Tobacco Use Types Packs/Day Years Used Date Smoking Tobacco: Never Smokeless Tobacco: Never Alcohol Use Standard Drinks/Week Comments Never 0 (1 standard drink = 0.6 oz pur e alcohol) [facility] Utilities Answer Date Recorded In the past [...] AM EDT Tech [place] [phone] [place] 10/08/2023 9:30 AM EDT Office [place] [address] MD [facility] [address] VASCULAR SURGERY [place], [place] [phone] 10/21/2023 10:30 AM EDT Appointment Nuclear Medicine at [place] [phone] Mary Reyes APR[place] [address] 10/21/2023 11:30 AM EDT Appointment [place] [address] Mary Reyes [place] [address] 10/21/2023 12:30 PM EDT Appointment [place] [phone] Mary Reyes [place] [address] 10/21/2023 1:30 PM EDT Appointment [place] [address] Mary Reyes, [facility] [address] 10/21/2023 2:30 PM EDT Appointment [place] [address] Mary Reyes, [facility] [address] 10/26/2023 4:00 PM EDT Office Visit Cardiology at [address] [phone] Jaspreet Kinsey MD [facility] [place] [address] 10/28/2023 9:00 AM EDT Office Visit [place] [address] 10/29/2023 10:00 AM EDT Clinical Support [place] [address] 10/29/2023 10:15 AM EDT Procedure visit [place] [address] 11/01/2023 5:00 PM EDT Office Visit [place] [address] Selene Browning, PhD [facility] [place] [address] 11/22/2023 4:40 PM EDT Office Visit Cardiology at [address] [address] Porsha Mcdaniels MD [facility] [place] [address] 12/13/2023 10:00 AM EDT Clinical Support [place] [address] [facility] [place] [address] documented as of this encounter Procedures Procedure Name Priority Date/Time Associated Diagnosis Comments ECG SCAN Routine 02/08/2023 3:27 PM EST documented in this encounter Results * Scan Doc: ECG (02/08/2023 3:27 PM EST) Historical Provider MD FLEMING MGR SCAN EX T ORDR/RSLT documented in this encounter Visit Diagnoses Not on filedocumented in this encounter Care Teams Rural Sociologist Relationship Specialty Start Date End Date Polo Pearce PA [address] [place] [address] PCP - General Internal Medicine 06/09/21 documented as of this encounter
--- OUTSIDE RECORDS SUMMARY | 2023-10-02 22:46 | XMS_ITS | Encounter Summary ---
[place] [address] Care Team Providers Care Tile Inspector Name Role Phone Polo Pearce Primary Care Provider [phone] Encounter Details Date Type Department Care Team (Late st Contact Info) Description 10/20/2022 Telephone Cardiology at [address] [phone] Gianna Day, RN Social History [...] AM EDT Tech Visit [place] [address] [place]ahn[place] 10/08/2023 9:30 AM EDT Office Visit [place] [address] MD [facility] [place] [address] 10/21/2023 10:30 AM EDT Appoint[place] [address] Mary Reyes [facility] [place] [address] 10/21/2023 11:30 AM EDT Appoint[place] [address] [place] [address] 10/21/2023 12:30 PM EDT Appoint[place] [address] [place] [address] 10/21/2023 1:30 PM EDT Appoint[place] [address] Mary Reyes [facility] [place] [address] 10/21/2023 2:30 PM EDT Appoint[place] [address] Mary Reyes [facility] [place] [address] 10/26/2023 4:00 PM EDT Office Visit Cardiology at [address] [place] [address] Jaspreet Kinsey MD [facility] [place] [address] 10/28/2023 9:00 AM EDT Office Visit [place] [address] 10/29/2023 10:00 AM EDT Clinical Support [place] [address] 10/29/2023 10:15 AM EDT Procedure visit [place] [address] 11/01/2023 5:00 PM EDT Office Visit Gastroenterology at [place] [phone] Selene Browning, [facility] [place] [address] 11/22/2023 4:40 PM EDT Office Visit Cardiology at [address] [phone] Porsha Mcdaniels MD [facility] [place] [address] 12/13/2023 10:00 AM EDT Clinical Support [place] [phone] [facility] [place] [address] documented as of this encounter Visit Diagnoses Not on filedocumented in this encounter Care Teams Tile Inspector Relationship Specialty Start Date End Date Polo Pearce PA Sb ARELLANO [address] [place] [address] PCP - General Internal Medicine 06/09/21 documented as of this encounter
--- OUTSIDE RECORDS SUMMARY | 2023-10-02 22:46 | XMS_ITS | Encounter Summary ---
Author Organization [facility] [place] [address] Care Team Providers Care Staff Sonographer Name Role Phone Polo Pearce Primary Care Provider [phone] Encounter Details Date Type Department Care Team [...] AM EDT Tech [place] [phone] [place] 10/08/2023 9:30 AM EDT Office Visit [place] [address] [facility] [place] [address] 10/21/2023 10:30 AM EDT Appointment [place] [address] Mary Reyes [facility] [place] [address] 10/21/2023 11:30 AM EDT Appointment [place] [address] Mary Reyes [facility] [place] [address] 10/21/2023 12:30 PM EDT Appointment [place] [address] [place] [address] 10/21/2023 1:30 PM EDT Appointment [place] [address] [place] [address] 10/21/2023 2:30 PM EDT Appointment [place] [address] Mary Reyes [facility] [place] [address] 10/26/2023 4:00 PM EDT Office Visit Cardiology at [address] [address] Jaspreet Kinsey MD [facility] [place] [address] 10/28/2023 9:00 AM EDT Office [place] [address] 10/29/2023 10:00 AM EDT Clinical [place] [address] 10/29/2023 10:15 AM EDT Procedure [place] [address] 11/01/2023 5:00 PM EDT Office [place] [address] Selene Browning, PhD [facility] [place] [address] 11/22/2023 4:40 PM EDT Office Visit Cardiology at [address] [address] Porsha Mcdaniels MD [facility] [place] [address] 12/13/2023 10:00 AM EDT Clinical Support [place] [address] Lucero Romero, ALVA [facility] [place] [address] documented as of this encounter Visit Diagnoses Not on filedocumented in this encounter Care Teams Staff Sonographer Relationship Specialty Start Date End Date Polo Pearce PA [address] [place] [address] PCP - General Internal Medicine 06/09/21 documented as of this encounter
--- OUTSIDE RECORDS SUMMARY | 2023-10-02 22:46 | XMS_ITS | Encounter Summary ---
Author [place] [address] Care Team Providers Care Purse Seining Hand Name Role Phone Polo Pearce Primary Care Provider [phone] Reason for Visit * Auth/Cert (Routine) Specialty Diagnoses / Procedures Referred By Jayant harris Referred To Contact Diagnoses NSTEMI (non-ST elevated myocardial infarction) NSTEMI Procedures EMERGENCY Willy Olivera MD [facility] [place] [address] [facility] Referral ID Status Reason Start Date Expiration Date Visits Re quested Visits Authorized [id number] 1 1 Encounter Details Date Type Department Care Team (Latest Contact Info) Description 09/27/2022 6:50 AM EDT - 09/27/2022 11:59 PM EDT Hospital Encounter Non-[place] [address] Discharge Disposition: Home Social History Tobacco Use [...] Date End Date empagliflozin (Jardiance) 10 mg TabletIndications:Viviana hahn heart failure with preserved ejection fraction Take 1 tablet by mouth daily. 90 tablet 1 06/11/2021 rOPINIRole (Requip) 1 mg Tablet Take 2 mg by mouth 2 times daily. 07/16/2020 loratadine (Claritin) 10 mg Tablet Take 10 mg by mouth daily as needed. fluticasone propionate (FLONASE) 50 mcg/actuation [place], Suspension 1 spray by Each Nare route [...] AM EDT Tech [place] [address] [place] 10/08/2023 9:30 AM EDT Office [place] [address]-[address] MD [facility] [place] [address] 10/21/2023 10:30 AM EDT Appointment [place] [address] Mary Reyes APRN [facility] [place] [address] 10/21/2023 11:30 AM EDT Appointment [place] [address] Mary Reyes [facility] [place] [address] 10/21/2023 12:30 PM EDT Appointment [place] [address] [place] [address] 10/21/2023 1:30 PM EDT Appointment [place] [address] Mary Reyes [facility] [place] [address] 10/21/2023 2:30 PM EDT Appointment [place] [address] [place] [address] 10/26/2023 4:00 PM EDT Office Visit Cardiology at [address] [phone] Jaspreet Kinsey MD [facility] [place] [address] 10/28/2023 9:00 AM EDT Office [place] [address] 10/29/2023 10:00 AM EDT Clinical [place] [address] 10/29/2023 10:15 AM EDT Procedure [place] [address] 11/01/2023 5:00 PM EDT Office [place] [address] Selene Browning, PhD [facility] [place] [address] 11/22/2023 4:40 PM EDT Office Visit Cardiology at [address] [phone] Porsha Mcdaniels MD [facility] [place] [address] 12/13/2023 10:00 AM EDT Clinical Support [place] [address] [facility] [place] [address] documented as of this encounter Procedures Procedure [...] mLs documented in this encounter Care Teams Purse Seining Hand Relationship Specialty Start Date End Date Polo Pearce PA [address] [place] [address] PCP - General Internal Medicine 06/09/21 documented as of this encounter
--- OUTSIDE RECORDS SUMMARY | 2023-10-02 22:46 | XMS_ITS | Encounter Summary ---
Author Organization [place] [address] Care Team Providers Care Search Engine Marketing Strategist Name Role Phone Polo Pearce Primary Care Provider [phone] Reason for Referral * Consultation (Routine) - Closed Specialty Diagnoses / Procedures Referred By Jayant harris Referred To Contact Vascular Surgery Diagnoses Pulmonary embolism, unspecified chronicity, unspecified pulmonary embolism type, unspecified whether acute cor pulmonale present ROUTINE, SALVATORE, BLE DVT Vascular medicine PE clinic: seemingly unprovoked small PE. review consideration of hypercoagulability testing Jaspreet Kinsey MD [facility] [place] [address] Elvin Maya MD [facility] [address] Referral ID Status Reason Start Date Expiration Date V isits Requested Visits Authorized [id number] Closed Consult, Test & Treat 07/30/2022 07/30/2023 1 1 Reason for Visit * Reason Comments Coronary Artery Disease Congestive Heart Failure HFpEF Chest Pain Encounter Details Date Type Department Care Team (Late st Contact Info) Description 07/30/2022 9:20 AM EDT Office Visit Cardiology at [address] [address] Jaspreet Kinsey MD [facility] [place] [address] Heart failure with preserved ejection fraction, unspecified [...] Intercurrently, patient presented earlier this week to [facility] with an abrupt increase in fatigue/dyspnea [...] a significant increase in UOP; however, at [facility] notes they gave me something that [...] DAYS ??? fluticasone propionate (FLONASE) 50 mcg/actuation [place], Suspension 1 spray, Each Nare, DAILY ??? [...] preserved ejection fraction 05/2021: subacute, presented to [facility] with RUQ pain, weight [...] discharge summary and medication administration record from [facility] to see what was given to [...] discharge summary and medication administration record from [facility] to see what was given to her to effect UOP positively - Diuresis: bumex 1 qd - Cardioprotection: - SGLT2i: jardiance - MRA: aldactone 25 documented in this encounter Plan of Treatment Upcoming Encounters Date Type Department Care Team (Late st Contact Info) Description 10/08/2023 8:30 AM EDT Tech [place] [address] Channing [place] 10/08/2023 9:30 AM EDT Office [place] [address] MD [facility] [place] [address] 10/21/2023 10:30 AM EDT Appointment [place] [address] Mary [place] [address] 10/21/2023 11:30 AM EDT Appointment [place] [address] Mary Re[place] [address] 10/21/2023 12:30 PM EDT Appointment [place] [address] Mary Re[place] [address] 10/21/2023 1:30 PM EDT Appointment [place] [address] Mary Re[place] [address] 10/21/2023 2:30 PM EDT Appointment [place] [address] Mary [place] [address] 10/26/2023 4:00 PM EDT Office Visit Cardiology at [address] [phone] Jaspreet Kinsey MD [facility] [place] [address] 10/28/2023 9:00 AM EDT Office [place] [address] 10/29/2023 10:00 AM EDT Clinical [place] [address] 10/29/2023 10:15 AM EDT Procedure [place] [address] 11/01/2023 5:00 PM EDT Office Visit Gastroenterology at [place] [phone] Selene Browning, PhD [facility] [address] 11/22/2023 4:40 PM EDT Office Visit Cardiology at [place] [phone] Porsha Mcdaniels MD [facility] [place] [address] 12/13/2023 10:00 AM EDT Clinical [place] [address] Lucero Romero, RD [facility] [place] [address] Scheduled Referrals Name Type Priority Associated Diagnoses [...] dysrhythmias documented in this encounter Care Teams Search Engine Marketing Strategist Relationship Specialty Start Date End Date Polo Pearce PA Sb [address] [place] [address] PCP - General Internal Medicine 06/09/21 documented as of this encounter
--- OUTSIDE RECORDS SUMMARY | 2023-10-02 22:46 | XMS_ITS | Encounter Summary ---
Author Organization [facility] [place] [address] Care Team Providers Care Model Maker Plastic Name Role Phone Polo Pearce Primary Care Provider [phone] Encounter Details Date Type Department Care Team (Late st Contact Info) Description 09/26/2022 External [place] [address] Social History Tobacco Use Types Packs/Day Years [...] AM EDT Tech [place] [address] Channing [place]ob[place] 10/08/2023 9:30 AM EDT Office Visit [place] [address] [facility] [place] [address] 10/21/2023 10:30 AM EDT Appointment [place] [address] Mary [place] [address] 10/21/2023 11:30 AM EDT Appointment [place] [address] Mary [place] [address] 10/21/2023 12:30 PM EDT Appointment [place] [address] Mary [place] [address] 10/21/2023 1:30 PM EDT Appointment [place] [address] Mary [place] [address] 10/21/2023 2:30 PM EDT Appointment [place] [address] Mary [place] [address] 10/26/2023 4:00 PM EDT Office Visit Cardiology at [address] [phone] Jaspreet Kinsey MD [facility] [place] [address] 10/28/2023 9:00 AM EDT Office Visit [place] [address] 10/29/2023 10:00 AM EDT Clinical Support [place] [address] 10/29/2023 10:15 AM EDT Procedure visit [place] [address] 11/01/2023 5:00 PM EDT Office Visit Gastroenterology at [place] [phone] Selene Browning, PhD [facility] [place] [address] 11/22/2023 4:40 PM EDT Office Visit Cardiology at [place] [phone] Porsha Mcdaniels MD [facility] [address] 12/13/2023 10:00 AM EDT Clinical Support Gastroenterology at [place] [phone] Lucero Romero, ALVA [facility] [place] [address] documented as of this encounter Procedures Procedure Name Priority Date/Time Associated Diagnosis Comments ECG SCAN Routine 09/26/2022 8:40 AM EDT documented in this encounter Results * Scan Doc: ECG (09/26/2022 8:40 AM EDT) Historical Provider MD LONNIE PRAKASH SCAN EX T ORDR/RSLT documented in this encounter Visit Diagnoses Not on filedocumented in this encounter Care Teams Model Maker Plastic Relationship Specialty Start Date End Date Polo Pearce PA [address] [place] [address] PCP - General Internal Medicine 06/09/21 documented as of this encounter
--- OUTSIDE RECORDS SUMMARY | 2023-10-02 22:46 | XMS_ITS | Encounter Summary ---
[place] [address] Care Team Providers Care Media Consultant Name Role Phone Polo Pearce Primary Care Provider [phone] Reason for Visit * Auth/Cert (Routine) Specialty Diagnoses / Procedures Referred By Jayant harris Referred To Contact Diagnoses NSTEMI (non-ST elevated myocardial infarction) NSTEMI Procedures EMERGENCY IPI Susannah Gómez MD [facility] [address] [facility] Referral ID Status Reason Start Date Expiration Date Visits Re quested Visits Authorized [id number] 1 1 Encounter Details Date Type Department Care Team (Latest Contact Info) Description 09/26/2022 3:42 PM EDT - 09/28/2022 5:02 PM EDT Hospital Encounter Heart and Vascular Unit Level 4 [place] [address] Susannah Gómez MD [facility] [address] Non-ST elevation myocardial infarction (NSTEMI) Discharge Disposition: [...] to the point that she presented to [facility] at around 630 or 7 AM this morning. At OSH: Patient presented with soft blood pressures of 90s/50s which improved with fluids. Initial troponins above 800. EKG with sinus bradycardia with inferolateral ST segment depressions, possibly increased from prior. OSH provider loaded full dose aspirin and started therapeutic Lovenox prior to transfer. On presentation to [facility] patient notes some constant chest pain that is approx 5/10 in severity centered over left chest. She has no shortness of breath or PND. On a regular day patient could walk about 30 feet on a flat surface before becoming shortness of breath. 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 She is under a considerable amount of [...] days. Refills: 0 fluticasone propionate 50 mcg/actuation Allyn, Suspension Commonly known as: Flonase 1 spray [...] Department Dept Phone 10/08/2022 4:00 PM Jaspreet Kisney MD Cardiology at [place] Arrive at: [facility] [address] [phone] 10/20/2022 8:00 AM Florencia Callahan [place] Vascular Lab at [facility] Arrive at: Director Work Area 3V [phone] 10/20/2022 9:00 AM Umberto Abbott MD Vascular Surgery at [facility] Arrive at: Director Work Area 3V [phone] Provider Contact Information: JOCY [address] [facility] [address] Discharge References/Attachments: Discharge References/Attachments None documented in [...] October 08, 2022 at 4:00 pm in [place]). MEDICATION INSTRUCTIONS: At discharge, START - amlodipine [...] as needed. fluticasone propionate (FLONASE) 50 mcg/actuation Allyn, Suspension 1 spray by Each Nare route [...] EDT CARDIOLOGY S2 Daily Progress Note Pager [phone] Admit Date: 09/26/2022 Encounter Date: September 27, [...] 29-35-30. Chest pain improved en route to [facility], some improvement with nitro. Overnight: No acute [...] to the point that she presented to [facility] at around 630 or 7 AM this morning. At OSH: Patient presented with soft blood pressures of 90s/50s which improved with fluids. Initial troponins above 800. EKG with sinus bradycardia with inferolateral ST segment depressions, possibly increased from prior. OSH provider loaded full dose aspirin and started therapeutic Lovenox prior to transfer. On presentation to [facility] patient notes some constant chest pain that is approx 5/10 in severity centered over left chest. She has no shortness of breath or PND. On a regular day patient could walk about 30 feet on a flat surface before becoming shortness of breath. 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 She is under a considerable amount of [...] 30 DAYS fluticasone propionate (FLONASE) 50 mcg/actuation Allyn, Suspension 1 spray, Each Nare, DAILY gabapentin [...] Holman MD Internal Medicine, PGY-1 Cardiology M1-S1, #[id number] Cardiology M1-S2, #[id number] 09/26/2022, 6:07 PM Cardiology Staff Addendum Loida [...] COVID test: Lab Results Component Value Date [id number] Not Detected 06/13/2021 Present on Admission: NSTEMI (non-ST elevated myocardial infarction) Hospitalizations Within the Past 30 Days: no previous admission in last 30 days Patient receiving hospital care under Inpatient status. Admission order reviewed. Health/Prescription Coverage: Primary Insurance: [employer] [place] Payor: [employer] [facility] [place] / Plan: [place] EX[place]ANGE / Product Type: *No Product type* / Secondary Insurance: N/A ; Prescription Coverage: Preferred Pharmacy: [id number] - [place], [place] - [address] [facility] [address] [place], [place] - [address] [facility] [address] [facility] [address] Advance Care Planning: Attempt Cardiopulmonary Resuscitation - Inpatient <no information> - Current Functional Ability: Independent Functional Status Prior to Admission: Home Environment: . Current Living Arrangements: home/apartment/condo. Accessibility Concerns: . Current DME: [address] [facility] [address] Social & Family Supports: All names listed [...] private vehicle when medically ready. Registered Nurse [employer] Cook Head / Social Science Teacher will continue to follow patient???s progress and remain available if situation changes for coordination of care, psychosocial support and/or discharge planning. Office of Care Management Fab GALARZA, RN Case Management [phone] * Plan of Care - Antonio Swann [...] AM EDT Tech [place] [address] Channing Escobedo [place] 10/08/2023 9:30 AM EDT Office Visit Vascular Surgery at [place] [phone] MD [facility] [place] [place] [address] 10/21/2023 10:30 AM EDT Appointment Nuclear Medicine at [place] [phone] [place] [address] 10/21/2023 11:30 AM EDT Appointment Nuclear Medicine at [place] [phone] [place] [address] 10/21/2023 12:30 PM EDT Appointment [place] [address] [place] [address] 10/21/2023 1:30 PM EDT Appointment [place] [address] [place] [address] 10/21/2023 2:30 PM EDT Appointment [place] [address] CalvMary mazariegos APRN [facility] [place] [address] 10/26/2023 4:00 PM EDT Office Visit Cardiology at [address] [address] Jaspreet Kinsey MD [facility] [address] 10/28/2023 9:00 AM EDT Office Visit [place] [address] 10/29/2023 10:00 AM EDT Clinical Support [place] [address] 10/29/2023 10:15 AM EDT Procedure visit [place] [address] 11/01/2023 5:00 PM EDT Office [place] [phone] Selene Browning, PhD [facility] [place] [address] 11/22/2023 4:40 PM EDT Office Visit Cardiology at [address] [phone] Porsha Mcdaniels MD [facility] [address] 12/13/2023 10:00 AM EDT Clinical [place] [phone] [facility] [place] [address] documented as of this encounter Procedures Procedure [...] EDT) pH Salbador 7.32 7.32 - 7.42 [facility] pCO2 Salbador 45 41 - 51 mmHg [facility] pO2 [place] 30 25 - 40 mmHg [facility] HCO3 Salbador 22.8 mmol/L [facility] BE Salbador -3.3 mmol/L [facility] Hgb Blood Gas 15.2 11.7 - 15.5 g/dL [facility] O2HB Salbador 52.4 % [facility] COHB Salbador 1.0 % [facility] Comment: Nonsmokers: 0.5-1.5% COHB Smokers: Variable, but usually less than 10% Toxic: 20-30% COHB Lethal: Greater than 60% COHB METHB Salbador 0.3 <=1.5 % [facility] Na Whole Blood 139 135 - 145 mmol/L [facility] K Whole Blood 4.6 3.5 - 5.0 mmol/L [facility] Comment: Please note: Patients with WBC >100,000 may have falsely elevated Potassium levels. Contact the Clinical Chemistry Laboratory if there are any questions. ICa Whole Blood 1.23 1.15 - 1.33 mmol/L [facility] Comment: Note: ??Total bilirubin higher than 20 mg/dL may lead to falsely low ionized calcium. CL Whole Blood 104 98 - 107 mmol/L [facility] Gluc Whole Bld 87 65 - 199 mg/dL [facility] Comment:Diabetes: >=200 mg/d L plus symptoms Lactate WB 1.3 0.5 - 2.2 mmol/L [facility] BGas Source Venous [facility] Blood Venous Draw / Unknown 09/28/2022 3:39 PM EDT 09/28/2022 3:50 PM EDT Narrative Resulting Agency Comment Spec In Lab Ciro Lovell MD CHEMISTRY ORDERABLES [facility] [place] [address] * EKG 12 Lead (09/28/2022 1:58 PM EDT) Ventricular rate 57 BPM MUSE SYSTEM Atrial Rate 57 BPM MUSE SYSTEM P-R Interval 180 ms MUSE SYSTEM QRS Duration 86 ms MUSE SYSTEM Q-T Interval 414 ms MUSE SYSTEM QTC Calculated (Bezet) 402 ms MUSE SYSTEM Calculated P [place] 40 degrees MUSE SYSTEM Calculated R [place] 67 degrees MUSE SYSTEM Calculated T [place] -56 degrees MUSE SYSTEM INTERPRETATION Sinus bradycardia [...] PM EDT Susannah Gómez MD ECG ORDERABLES Performing Organization Address City/[facility] Co de Phone Number MUSE SYSTEM * CT Angiogram Coronary Arteries [...] questions please contact the health care transitions nurse that requested your imaging first. ? [...] have questions please contactthe health care transitions nurse that requested your imaging first. Susannah Gómez MD IMG CT ORDERABLES * (ABNORMAL) Troponin (09/28/2022 6:56 AM EDT) Troponin-T HS 21(H) <=14 ng/L [facility] Comment: This patient's troponin [...] can be found in the [facility] Test Catalog Troponin - [facility] Test Catalog Reference: Fourth Welcome Definition of Myocardial Infarction. Journal of the [employer] 2018;72:2194-4116 Blood 09/28/2022 6:56 AM EDT 09/28/2022 7:01 AM EDT Narrative Resulting Agency Comment Spec In Lab Susannah Gómez MD CHEMISTRY ORDERABLES [facility] [place] [address] * Differential, Automated (09/28/2022 3:49 AM EDT) Neutrophils % 45.9 % [facility] Neutr Abs (ANC) 2.92 1.70 - 6.10 x10(3)/[facility] Lymphocytes % 40.5 % [facility] Lymphocytes Abs 2.6 0.9 - 3.2 x10(3)/[facility] Monocytes % 8.9 % [facility] Monocyte Abs 0.6 0.3 - 0.9 x10(3)/[facility] Eosinophils % 3.3 % [facility] Eosinophils Abs 0.2 0.0 - 0.4 x10(3)/[facility] Basophils % 1.1 % [facility] Basophils Abs 0.1 0.0 - 0.1 x10(3)/[facility] Immature Gran % 0.30 % [facility] Comment: Immature granulocytes(IG's)percentage and absolute count will include metamyelocytes, myelocytes, and promyelocytes. Blood smears from CBCs yielding IG's will be scanned manually for concordance. If this scan disagrees with the automated IG or if promyelocytes are noted, a manual differential will be performed. Shonda Gran Abs 0.02 0.00 - 0.04 x10(3)/[facility] Blood 09/28/2022 3:49 AM EDT 09/28/2022 4:11 AM EDT Narrative Resulting Agency Comment Spec In Lab Vimal Holman MD HEMATOLOGY ORDERABLE S [facility] [place] [address] * (ABNORMAL) Hemogram (09/28/2022 3:49 AM EDT) [facility] WBC 6.4 4.0 - 9.5 x10(3)/[facility] RBC 4.37 4.00 - 5.21 x10(6)/[facility] Hemoglobin 13.7 11.7 - 15.5 g/dL [facility] Hematocrit 41.6 35.7 - 45.8 % [facility] MCV 95.2(H) 82.6 - 94.4 [facility] MCH 31.4 27.1 - 32.0 pg [facility] MCHC 32.9 31.7 - 35.0 g/dL [facility] Platelets 224 145 - 357 x10(3)/[facility] RDWSD 43.1 37.0 - 46.0 [facility] RDWCV 12.3 11.5 - 14.1 % [facility] MPV 11.3 7.6 - 12.9 [facility] nRBC % Auto 0.0 % [facility] nRBC Abs Auto 0.000 0.000 - 0.000 x10(3)/[facility] Blood 09/28/2022 3:49 AM EDT 09/28/2022 4:11 AM EDT Narrative Resulting Agency Comment Spec In Lab Vimal Holman MD HEMATOLOGY ORDERABLE S [facility] [place] [address] * (ABNORMAL) Troponin (09/28/2022 3:49 AM EDT) [facility] Troponin-T HS 25(H) <=14 ng/L [facility] Comment: This patient's troponin [...] can be found in the [facility] Test Catalog Troponin - [facility] Test Catalog Reference: Fourth Welcome Definition of Myocardial Infarction. Journal of the [employer] 2018;72:5404-2930 Blood 09/28/2022 3:49 AM EDT 09/28/2022 4:11 AM EDT Narrative Resulting Agency Comment Spec In Lab Susannah Gómez MD CHEMISTRY ORDERABLES Performing Organization Address City/State/[facility] Co de Phone Number [facility] [place] [address] * (ABNORMAL) Basic Metabolic Panel (non-fasting) (09/28/2022 3:49 AM EDT) [facility] Glucose Lvl 97 65 - 199 mg/dL [facility] Comment:Diabetes: >=200 mg/d L plus symptoms BUN 26(H) 8 - 18 mg/dL [facility] Creatinine 1.01 0.70 - 1.20 mg/dL [facility] Sodium 137 135 - 145 mmol/L [facility] Potassium 4.4 3.5 - 5.0 mmol/L [facility] Comment: Please note: ??Patients with WBC >100,000 may have falsely elevated Potassium levels. ??For accurate Potassium quantification in these patients send serum separator tube (gold top) for subsequent determinations. ??Contact the Clinical Chemistry Laboratory if there are any questions. Chloride 108(H) 98 - 107 mmol/L [facility] CO2 18(L) 22 - 31 mmol/L [facility] Anion Gap 11 5 - 15 mmol/L [facility] Calcium 9.0 8.5 - 10.5 mg/dL [facility] Estimated GFR 67 >=60 mL/min/1. 73 m?? [facility] [...] In Lab Susannah Gómez MD CHEMISTRY ORDERABLES [facility] [place] [address] * XR Chest One View (09/28/2022 3:37 [...] questions please contact the health care transitions nurse that requested your imaging first. ? Electronically signed by: Elina Valdez MD, [facility] ??([phone]), at 09/28/2022 8:27 AM Narrative 09/28/2022 8:27 [...] have questions please contactthe health care transitions nurse that requested your imaging first. Susannah Gómez MD IMG DX ORDERABLES * EKG 12 Lead (09/28/2022 3:11 AM EDT) Ventricular rate 45 BPM MUSE SYSTEM Atrial Rate 45 BPM MUSE SYSTEM P-R Interval 196 ms MUSE SYSTEM QRS Duration 90 ms MUSE SYSTEM Q-T Interval 554 ms MUSE SYSTEM QTC Calculated (Bezet) 479 ms MUSE SYSTEM Calculated P [place] 33 degrees MUSE SYSTEM Calculated R [place] 28 degrees MUSE SYSTEM Calculated T [place] 58 degrees MUSE SYSTEM INTERPRETATION Sinus bradycardia Nonspecific ST and T wave abnormality Abnormal ECG When compared with ECG of 26-SEP-2022 17:33, QT has lengthened Confirmed by fellow Vaishnavi Pratt ([id number]) on 09/28/2022 9:30:13 AM Confirmed by MD [place], Gus ([id number]) on 09/28/2022 3:06:42 PM MUSE SYSTEM 09/28/2022 3:11 AM EDT 09/28/2022 3:06 PM EDT Susannah Gómez MD ECG ORDERABLES MUSE SYSTEM * ECHO COMPLETE W CONTRAST (09/27/2022 9:42 AM EDT) Pathologist [facility] EF 60 HEARTLAB SYSTEM Anatomical Region Laterality Modality Cardiac Other 09/27/2022 9:04 AM EDT Narrative 09/27/2022 12:04 PM EDT ? Echocardiogram Report Name: LOIDA MADRIGAL ? Study Date: 09/27/2022 09:04 AMBP: 92/56 mmHg ? Patient Location: : 1970 ? Height: 163 cm ? Account: [id number] Age: 52 yrs ? Weight: 102 kg Gender: Female ?BSA: 2.1 m2 Ordering Physician: SUSANNAH GÓMEZ Referring Physician: SUSANNAH GÓMEZ Performed By: HAIM Arnold Reason For Study: NSTEMI Exam Location: [facility]. Interpretation Summary - Left ventricular systolic function [...] 12/31/21, there is no significant change. Procedure Complete-[id number]. Image enhancement Optison was used for left [...] Location: : 1970 Height: 163 cm Account: [id number] Age: 52 yrs Weight: 102 kg Gender: Female BSA: 2.1 m2 Ordering Physician: SUSANNAH GÓMEZ Referring Physician: SUSANNAH GÓMEZ Performed By: HAIM Arnold Reason For Study: NSTEMI Exam Location: [facility]. Interpretation Summary - Left ventricular systolic function [...] on 12/31/21, there is nosignificant change. Procedure Complete-[id number]. Image enhancement Optison was used for left [...] 3:07 AM EDT) Neutrophils % 49.4 % [facility] Neutr Abs (ANC) 3.02 1.70 - 6.10 x10(3)/[facility] Lymphocytes % 36.4 % [facility] Lymphocytes Abs 2.2 0.9 - 3.2 x10(3)/[facility] Monocytes % 10.3 % [facility] Monocyte Abs 0.6 0.3 - 0.9 x10(3)/[facility] Eosinophils % 3.0 % [facility] Eosinophils Abs 0.2 0.0 - 0.4 x10(3)/[facility] Basophils % 0.7 % [facility] Basophils Abs 0.0 0.0 - 0.1 x10(3)/[facility] Immature Gran % 0.20 % [facility] Comment: Immature granulocytes(IG's)percentage and absolute count will include metamyelocytes, myelocytes, and promyelocytes. Blood smears from CBCs yielding IG's will be scanned manually for concordance. If this scan disagrees with the automated IG or if promyelocytes are noted, a manual differential will be performed. Shonda Gran Abs 0.01 0.00 - 0.04 x10(3)/[facility] Blood 09/27/2022 3:07 AM EDT 09/27/2022 3:18 AM EDT Narrative Resulting Agency Comment Spec In Lab Vimal Holman MD HEMATOLOGY ORDERABLE S [facility] [place] [address] * (ABNORMAL) Hemogram (09/27/2022 3:07 AM EDT) WBC 6.1 4.0 - 9.5 x10(3)/[facility] RBC 4.20 4.00 - 5.21 x10(6)/[facility] Hemoglobin 13.3 11.7 - 15.5 g/dL [facility] Hematocrit 40.9 35.7 - 45.8 % [facility] MCV 97.4(H) 82.6 - 94.4 fL [facility] MCH 31.7 27.1 - 32.0 pg [facility] MCHC 32.5 31.7 - 35.0 g/dL [facility] Platelets 223 145 - 357 x10(3)/[facility] RDWSD 45.0 37.0 - 46.0 [facility] RDWCV 12.7 11.5 - 14.1 % [facility] MPV 10.5 7.6 - 12.9 fL [facility] nRBC % Auto 0.0 % [facility] nRBC Abs Auto 0.000 0.000 - 0.000 x10(3)/mcL [facility] Blood 09/27/2022 3:07 AM EDT 09/27/2022 3:18 AM EDT Narrative Resulting Agency Comment Spec In Lab Vimal Holman MD HEMATOLOGY ORDERABLE S Performing Organization Address City/[facility]/ZIP Co de Phone Number [facility] [place] [address] * (ABNORMAL) Troponin (09/27/2022 3:07 AM EDT) Troponin-T HS 30(H) <=14 ng/L [facility] Comment: This patient's troponin [...] can be found in the [facility] Test Catalog Troponin - [facility] Test Catalog Reference: Fourth Welcome Definition of Myocardial Infarction. Journal of the [employer] 2018;72:6377-9147 Blood 09/27/2022 3:07 AM EDT 09/27/2022 3:18 AM EDT Narrative Resulting Agency Comment Spec In Lab Susannah Gómez MD CHEMISTRY ORDERABLES Performing Organization Address City/[facility]/ZIP Co de Phone Number [facility] [place] [address] * (ABNORMAL) Basic Metabolic Panel (non-fasting) (09/27/2022 3:07 AM EDT) Glucose Lvl 88 65 - 199 mg/dL [facility] Comment:Diabetes: >=200 mg/d L plus symptoms BUN 31(H) 8 - 18 mg/dL [facility] Creatinine 1.19 0.70 - 1.20 mg/dL [facility] Sodium 138 135 - 145 mmol/L [facility] Potassium 4.3 3.5 - 5.0 mmol/L [facility] Comment: Please note: ??Patients with WBC >100,000 may have falsely elevated Potassium levels. ??For accurate Potassium quantification in these patients send serum separator tube (gold top) for subsequent determinations. ??Contact the Clinical Chemistry Laboratory if there are any questions. Chloride 108(H) 98 - 107 mmol/L [facility] CO2 18(L) 22 - 31 mmol/L [facility] Anion Gap 12 5 - 15 mmol/L [facility] Calcium 8.9 8.5 - 10.5 mg/dL [facility] Estimated GFR 55(L) >=60 mL/min/1. 73 m?? [facility] [...] In Lab Susannah Gómez MD CHEMISTRY ORDERABLES [facility] [place] [address] * Hemoglobin A1c (09/27/2022 3:07 AM EDT) Hemoglobin A1C 5.6 4.3 - 5.6 % [facility] Comment: Reference Range: 4.3 [...] 1, S67-74 Est Avg Gluc 114 mg/dL [facility] Comment: eAG equivalents for HbA1c [...] into estimated average glucose values. ??Diabetes Care 2008:31(8):5415-9390. Blood 09/27/2022 3:07 AM EDT 09/27/2022 3:18 AM EDT Narrative Resulting Agency Comment Spec In Lab Susannah Gómez MD CHEMISTRY ORDERABLES [facility] [place] [address] * Lipid Panel (Reflex Direct LDL) (09/27/2022 3:07 AM EDT) Chol, Total 228 mg/dL [facility] Comment: Lower Risk: <200 mg/dL Average Risk: 200-239 mg/dL Higher Risk: >df=149 mg/dL Triglycerides 221 mg/dL [facility] Comment: Average Risk/Lower Risk: <150 mg/dL Borderline High Risk: 150-199 mg/dL High Risk: 200-499 mg/dL Very High Risk: >aa=314 mg/dL HDL 33 mg/dL [facility] Comment: Males: ?? Higher Risk: <40 mg/dL Females: ?? Higher Risk: <50 mg/dL LDL Cholesterol 151 mg/dL [facility] Comment: Lowest Risk: <100 mg/dL Lower Risk: 100-129 mg/dL Borderline High Risk: 130-159 mg/dL High Risk: 160-189 mg/dL Very High Risk: >uw=813 mg/dL Chol/HDL Ratio 6.9 ratio [facility] Lipid Interpretation See Note [facility] Comment: Lipid management should be guided by a patient? s ASCVD risk, goals and preferences. ACC/AHA Guidelines recommend high intensity statin if clinical ASCVD or LDL greater than or equal to 190 mg/dL. http://tinyurl.com/SBY-FFU-Goiemtwkp Adults aged 40-75 with LDL 70-189 mg/dL should have their 10 year ASCVD risk estimated with the ACC/AHA ASCVD risk lining ironer http://tools.acc.org/OYCTH-Aywj-Goecmykjv/ Statin should be discussed if risk greater [...] In Lab Susannah Gómez MD CHEMISTRY ORDERABLES [facility] [place] [address] * (ABNORMAL) Troponin (09/26/2022 8:55 PM EDT) Troponin-T HS 35(H) <=14 ng/L [facility] Comment: This patient's troponin [...] can be found in the [facility] Test Catalog Troponin - [facility] Test Catalog Reference: Fourth Welcome Definition of Myocardial Infarction. Journal of the [employer] 2018;72:1695-8712 Blood 09/26/2022 8:55 PM EDT 09/26/2022 8:59 PM EDT Narrative Resulting Agency Comment Spec In Lab Susannah Gómez MD CHEMISTRY ORDERABLES [facility] [place] [address] * Gold Tube HOLD (09/26/2022 5:50 PM EDT) Gold Hold Sample in lab. [facility] Blood Venous Draw / Unknown 09/26/2022 5:50 PM EDT 09/26/2022 6:13 PM EDT Vimal Holman MD CHEMISTRY ORDERABLES Performing Organization Address [facility]/ZIP Co de Phone Number [facility] [place] [address] * Differential, Automated (09/26/2022 5:50 PM EDT) [facility] Neutrophils % 53.9 % [facility] Neutr Abs (ANC) 2.93 1.70 - 6.10 x10(3)/[facility] LAB[facility] Lymphocytes % 34.3 % [facility] Lymphocytes Abs 1.9 0.9 - 3.2 x10(3)/[facility] LABORATORY Monocytes % 8.3 % [facility] Monocyte Abs 0.4 0.3 - 0.9 x10(3)/[facility] LABORATORY Eosinophils % 2.4 % [facility] Eosinophils Abs 0.1 0.0 - 0.4 x10(3)/[facility] LABOR[facility]ORY Basophils % 0.7 % [facility] Basophils Abs 0.0 0.0 - 0.1 x10(3)/[facility] LABORATORY Immature Gran % 0.40 % [facility] Comment: Immature granulocytes(IG's)percentage and absolute count will include metamyelocytes, myelocytes, and promyelocytes. Blood smears from CBCs yielding IG's will be scanned manually for concordance. If this scan disagrees with the automated IG or if promyelocytes are noted, a manual differential will be performed. Shonda Gran Abs 0.02 0.00 - 0.04 x10(3)/[facility] LAB[facility] Blood 09/26/2022 5:50 PM EDT 09/26/2022 6:12 PM EDT Narrative Resulting Agency Comment Spec In Lab Vimal Holman MD HEMATOLOGY ORDERABLE S [facility] [place] [address] * Hemogram (09/26/2022 5:50 PM EDT) WBC 5.4 4.0 - 9.5 x10(3)/[facility] LAB[facility]AT[facility] RBC 4.58 4.00 - 5.21 x10(6)/[facility] Hemoglobin 14.5 11.7 - 15.5 g/dL [facility] Hematocrit 42.4 35.7 - 45.8 % [facility] MCV 92.6 82.6 - 94.4 fL [facility] MCH 31.7 27.1 - 32.0 pg [facility] MCHC 34.2 31.7 - 35.0 g/dL [facility] Platelets 182 145 - 357 x10(3)/[facility] LABORATORY RDWSD 43.2 37.0 - 46.0 [facility] LAB[facility]ORY RDWCV 12.6 11.5 - 14.1 % [facility] MPV 11.3 7.6 - 12.9 [facility] nRBC % Auto 0.0 % [facility] nRBC Abs Auto 0.000 0.000 - 0.000 x10(3)/[facility] Blood 09/26/2022 5:50 PM EDT 09/26/2022 6:12 PM EDT Narrative Resulting Agency Comment Spec In Lab Vimal Holman MD HEMATOLOGY ORDERABLE S [facility] [place] [address] * (ABNORMAL) Basic Metabolic Panel (non-fasting) (09/26/2022 5:50 PM EDT) Glucose Lvl 81 65 - 199 mg/dL [facility] Comment:Diabetes: >=200 mg/d L plus symptoms BUN 28(H) 8 - 18 mg/dL [facility] Creatinine 1.02 0.70 - 1.20 mg/dL [facility] Sodium 140 135 - 145 mmol/L [facility] Potassium 4.2 3.5 - 5.0 mmol/L [facility] Comment: Please note: ??Patients with WBC >100,000 may have falsely elevated Potassium levels. ??For accurate Potassium quantification in these patients send serum separator tube (gold top) for subsequent determinations. ??Contact the Clinical Chemistry Laboratory if there are any questions. Chloride 108(H) 98 - 107 mmol/L [facility] CO2 19(L) 22 - 31 mmol/L [facility] Anion Gap 13 5 - 15 mmol/L [facility] Calcium 9.0 8.5 - 10.5 mg/dL [facility] Estimated GFR 66 >=60 mL/min/1. 73 m?? [facility] [...] Gómez MD CHEMISTRY ORDERABLES Performing Organization Address City/[facility]/ZIP Co de Phone Number [facility] [place] [address] * Magnesium (09/26/2022 5:50 PM EDT) Magnesium 0.89 0.69 - 1.07 mmol/L [facility] Blood 09/26/2022 5:50 PM EDT 09/26/2022 6:12 PM EDT Narrative Resulting Agency Comment Spec In Lab Susannah Gómez MD CHEMISTRY ORDERABLES Performing Organization Address [facility] Co de Phone Number [facility] [place] [address] * Calcium (09/26/2022 5:50 PM EDT) Calcium 9.0 8.5 - 10.5 mg/dL [facility] Blood 09/26/2022 5:50 PM EDT 09/26/2022 6:12 PM EDT Narrative Resulting Agency Comment Spec In Lab Susannah Gómez MD CHEMISTRY ORDERABLES Performing Organization Address [facility] Co de Phone Number [facility] [place] [address] * (ABNORMAL) Prothrombin Time (09/26/2022 5:50 PM EDT) PT 14.3(H) 9.4 - 12.5 sec [facility] INR 1.3 [facility] Comment: An INR <2.0 [...] S Performing Organization Address City/[facility]/ZIP Co de Phone Number [facility] [place] [address] * (ABNORMAL) APTT (09/26/2022 5:50 PM EDT) PTT 39(H) 25 - 37 sec [facility] Comment: The PTT is NOT appropriate for heparin monitoring. Use the Anti-Xa level for heparin monitoring (HEP UFH) or LMWH monitoring (HEP LMW). A PTT less than 37 seconds generally indicates adequate hemostasis. Blood 09/26/2022 5:50 PM EDT 09/26/2022 6:12 PM EDT Narrative Resulting Agency Comment Spec In Lab Susannah Gómez MD HEMATOLOGY ORDERABLE S Performing Organization Address [facility]/ZIP Co de Phone Number [facility] [place] [address] * (ABNORMAL) pro-Brain Natriuretic Peptide (09/26/2022 5:50 PM EDT) ProBNP 1,069(H) <=124 pg/mL [facility] Blood 09/26/2022 5:50 PM EDT 09/26/2022 6:12 PM EDT Narrative Resulting Agency Comment Spec In Lab Susannah Gómez MD CHEMISTRY ORDERABLES Performing Organization Address City/[facility]/ZIP Co de Phone Number [facility] [place] [address] * TSH (09/26/2022 5:50 PM EDT) TSH 3.02 0.27 - 4.20 mcIU/mL [facility] Comment: Reference Interval (mcIU/mL): Females: ??First Trimester: 0.23-3.88 ??Second Trimester: 0.22-3.90 ??Third Trimester: 0.44-4.66 Blood 09/26/2022 5:50 PM EDT 09/26/2022 6:12 PM EDT Narrative Resulting Agency Comment Spec In Lab Susannah Gómez MD CHEMISTRY ORDERABLES Performing Organization Address [facility] Co de Phone Number [facility] [place] [address] * EKG 12 Lead (09/26/2022 5:33 PM EDT) Ventricular rate 54 BPM MUSE SYSTEM Atrial Rate 54 BPM MUSE SYSTEM P-R Interval 180 ms MUSE SYSTEM QRS Duration 84 ms MUSE SYSTEM Q-T Interval 438 ms MUSE SYSTEM QTC Calculated (Bezet) 415 ms MUSE SYSTEM Calculated P [place] 20 degrees MUSE SYSTEM Calculated R [place] 21 degrees MUSE SYSTEM Calculated T [place] -28 degrees MUSE SYSTEM INTERPRETATION Sinus bradycardia ST & T wave abnormality, consider inferior ischemia Abnormal ECG When compared with ECG of 30-JUL-2022 09:33, T wave inversion now evident in Inferior leads Nonspecific T wave abnormality, worse in Anterolateral leads QT has shortened Confirmed by MD Hans, Stearns ([id number]) on 10/02/2022 11:07:34 AM MUSE SYSTEM 09/26/2022 5:33 PM EDT 10/02/2022 11:07 AM EDT Unknown ECG ORDERABLES Performing Organization Address [facility] Co de Phone Number MUSE SYSTEM * CRP, acute inflammation (09/26/2022 5:01 PM EDT) CRP <3.0 <=4.9 mg/L [facility] Blood Venous Draw / Unknown 09/26/2022 5:01 PM EDT 09/26/2022 5:33 PM EDT Narrative Resulting Agency Comment Spec In Lab Paulo Ramachandran Jr., MD CHEMISTRY LOREN PONCE Performing Organization Address [facility]/ZIP Co de Phone Number [facility] [place] [address] * (ABNORMAL) Troponin (09/26/2022 5:01 PM EDT) Troponin-T HS 29(H) <=14 ng/L [facility] Comment: This patient's troponin [...] can be found in the [facility] Test Catalog Troponin - [facility] Test Catalog Reference: Fourth Welcome Definition of Myocardial Infarction. Journal of the [employer] 2018;72:4775-5538 Blood 09/26/2022 5:01 PM EDT 09/26/2022 5:12 PM EDT Narrative Resulting Agency Comment Spec In Lab Susannah Gómez MD CHEMISTRY ORDERABLES Performing Organization Address City/[facility]/ZIP Co de Phone Number [facility] [place] [address] documented in this encounter Visit Diagnoses Diagnosis [...] on 09/26/22 at 1745, Until Discontinued, Routine 171 (Given - Provider: Mona Ogden RN) 08 (Given - Provider: Asya Michele RN) 0931 (Given - Provider: Antonio Swann RN) enoxaparin (Lovenox) (100 mg/1 mL) subcutaneous injection 100 mg 100 mg, Subcutaneous, EVERY 12 HOURS SCHEDULED (2 times per day), First dose on 09/26/22 at 2100, Until Discontinued, Routine 2002 (Given - Provider: Kathleen Brown RN) 0847 (Given - Provider: Asya Michele RN)2108 (Given - Provider: Samantha Patino RN) 0931 (Given - Provider: Antonio Swann, ERWIN) gabapentin (Neurontin) capsule 600 mg 600 [...] Discontinued, Routine 2003 (Given - Provider: Kathleen Brown RN) 0847 (Given - Provider: Asya Michele, ERWIN)2099 [...] ERWIN) 0931 (Given - Provider: Antonio Swann, REWIN) topiramate (Topamax) tablet 100 mg 100 mg, [...] dose, Starting on 09/26/22 at 1647, Until Wed09/28/22 at 1910, for discomfort with PIV insertion, [...] ERWIN) 0243 (Given - Provider: Samantha Patino, RN)0349 (Given - Provider: Samantha Patino, ERWIN)1359 (Given [...] Routine documented in this encounter Care Teams Media Consultant Relationship Specialty Start Date End Date Polo Pearce PA [address] [place] [address] PCP - General Internal Medicine 06/09/21 documented as of this encounter
--- OUTSIDE RECORDS SUMMARY | 2023-10-02 22:46 | XMS_ITS | Encounter Summary ---
[place] [address] Care Team Providers Care Fighter Pilot Name Role Phone Polo Pearce Primary Care Provider [phone] Reason for Referral * Diagnostic Test (Routine) - Closed Specialty Diagnoses / Procedures Referred By Jayant harris Referred To Contact Diagnoses Pulmonary embolism, unspecified chronicity, unspecified pulmonary embolism type, unspecified whether acute cor pulmonale present Procedures Duplex Study for DVT, Bilat legs Mamie Marx APRN [facility] [place] [address] [facility] Vascular Lab [address] [address] Referral ID Status Reason Start Date Expiration Date V isits Requested Visits Authorized [id number] Closed Specialty Service Requested 07/31/2022 07/31/2023 1 1 Encounter Details Date Type Department Care Team (Late st Contact Info) Description 07/31/2022 Orders Only [place] [address] Mamie Marx APRN [facility] [place] [address] Pulmonary embolism, unspecified chronicity, unspecified pulmonary embolism [...] AM EDT Tech Visit Vascular Lab at [place] [phone] [place] 10/08/2023 9:30 AM EDT Office [place] [address] MD [facility] [place] [address] 10/21/2023 10:30 AM EDT Appointment Nuclear Medicine at [place] [phone] Mary Reyes [facility] [address] 10/21/2023 11:30 AM EDT Appointment Nuclear Medicine at [place] [phone] Mary Reyes [facility] [address] 10/21/2023 12:30 PM EDT Appointment [place] [phone] Mary Reyes [facility] [place] [address] 10/21/2023 1:30 PM EDT Appointment [place] [address] Mary Reyes APRN [facility] [place] [address] 10/21/2023 2:30 PM EDT Appointment [place] [address] Mary Reyes APRN [facility] [place] [address] 10/26/2023 4:00 PM EDT Office Visit Cardiology at [address] [phone] Jaspreet Kinsey MD [facility] [place] [address] 10/28/2023 9:00 AM EDT Office Visit [place] [address] 10/29/2023 10:00 AM EDT Clinical Support [place] [address] 10/29/2023 10:15 AM EDT Procedure [place] [address] 11/01/2023 5:00 PM EDT Office Visit G[place] [address] Selene Browning, PhD [facility] [place] [address] 11/22/2023 4:40 PM EDT Office Visit Cardiology at [address] [phone] Porsha Mcdaniels MD [facility] [place] [address] 12/13/2023 10:00 AM EDT Clinical Support G[place] [address] Lucero Romero, AL[place] [facility] [place] [address] documented as of this encounter Results * Duplex Study for DVT, Bilat legs (10/20/2022 8:06 AM EDT) VB Text Report Department: Vascular Surgery Lab Patient: [id number] (LOIDA ROQUE) CPT: 41621 Referring Physician: MAMIE MARX ?? Phone: Indications: [...] present documented in this encounter Care Teams Fighter Pilot Relationship Specialty Start Date End Date Polo Pearce PA [address] [place] [address] PCP - General Internal Medicine 06/09/21 documented as of this encounter
--- OUTSIDE RECORDS SUMMARY | 2023-10-02 22:46 | XMS_ITS | Encounter Summary ---
Author Organization [facility] Address [facility] [place] [address] Care Team Providers Care Design Assistant Name Role Phone Polo Pearce Primary Care Provider [phone] Reason for Visit * Consultation (Routine) - Closed Specialty Diagnoses / Procedures Referred By Jayant harris Referred To Contact Vascular Surgery Diagnoses Pulmonary embolism, unspecified chronicity, unspecified pulmonary embolism type, unspecified whether acute cor pulmonale present ROUTINE, SALVATORE, BLE DVT Vascular medicine PE clinic: seemingly unprovoked small PE. review consideration of hypercoagulability testing Jaspreet Kinsey MD [facility] [place] [address] Elvin Maya MD [facility] [place] [address] Referral ID Status Reason Start Date Expiration Date V isits Requested Visits Authorized [id number] Closed Consult, Test & Treat 07/30/2022 07/30/2023 1 1 Encounter Details Date Type Department Care Team (Late st Contact Info) Description 10/20/2022 9:00 AM EDT Office Visit [place] [address] Umberto Abbott MD [facility] [address] [place] [id number] Pulmonary embolism, unspecified chronicity, unspecified pulmonary embolism [...] were not included. [facility] [place] [address] VASCULAR MEDICINE CLINIC NOTE PRIMARY CARE PROVIDER: JOCY Franco REFERRING PROVIDER: Jaspreet Kinsey PROBLEM LIST: Patient Active Problem List Diagnosis Pulmonary embolus 07/2022: right upper lobe. Started on eliquis 08/2022 TTE ([facility]): normal bi-v s/f. No [...] She was seen recently by her primary Academic Affairs Assistant, Dr. Kinsey, and he had uptitrated her [...] Vascular Clinic as needed. Sindhu Santo MD Director Of Market Intelligence, PGY5 #[id number] Cardiovascular Medicine Attending I have interviewed and [...] AM EDT Tech Visit Vascular Lab at [place] [phone] [place] 10/08/2023 9:30 AM EDT Office Visit Vascular Surgery at [place] [phone] MD [facility] [place] [address] 10/21/2023 10:30 AM EDT Appointment Nuclear Medicine at [address] Mary Reyes [facility] [place] [address] 10/21/2023 11:30 AM EDT Appointment Nuclear Medicine at [place] [phone] Mary Reyes [facility] [place] [address] 10/21/2023 12:30 PM EDT Appointment Nuclear Medicine at [place] [phone] Mary Reyes [facility] [place] [address] 10/21/2023 1:30 PM EDT Appointment [place] [phone] Mary Reyes [employer] [facility] [place] [address] 10/21/2023 2:30 PM EDT Appointment [place] [phone] Mary Reyes [employer] [facility] [place] [address] 10/26/2023 4:00 PM EDT Office Visit Cardiology at [address] [phone] Jaspreet Kinsey MD [facility] [place] [address] 10/28/2023 9:00 AM EDT Office [place] [address] 10/29/2023 10:00 AM EDT Clinical [place] [address] 10/29/2023 10:15 AM EDT Procedure [place] [address] 11/01/2023 5:00 PM EDT Office Visit [place] [phone] Selene Browning, PhD [facility] [place] [address] 11/22/2023 4:40 PM EDT Office Visit Cardiology at [address] [phone] Porsha Mcdaniels MD [facility] [place] [address] 12/13/2023 10:00 AM EDT Clinical Support [place] [address] Lucero Romero, [place] [place] [place] [address] documented as of this encounter Visit Diagnoses Diagnosis Pulmonary embolism, unspecified chronicity, unspecified pulmonary embolism type, unspecified whether acute cor pulmonale present- Primary PAF (paroxysmal atrial fibrillation) Atrial fibrillation documented in this encounter Care Teams Design Assistant Relationship Specialty Start Date End Date Polo Pearce PA [address] [place] [address] PCP - General Internal Medicine 06/09/21 documented as of this encounter
--- OUTSIDE RECORDS SUMMARY | 2023-10-02 22:46 | XMS_ITS | Encounter Summary ---
Author Organization [facility] [place] [address] Care Team Providers Care Care Rep Name Role Phone Polo Pearce Primary Care Provider [phone] Encounter Details Date Type Department Care Team (Late st Contact Info) Description 09/26/2022 [place] [address] Paulo Ramachandran Jr., MD [facility] [place] [address] Social History Tobacco Use Types Packs/Day Years [...] vasospasm rather than a true Type I [place], however, given degree of troponin rise and [...] AM EDT Tech [place] [phone] [place] 10/08/2023 9:30 AM EDT Office [place] [address] MD [facility] [place] [address] 10/21/2023 10:30 AM EDT Appointment Nuclear Medicine at [place] [phone] Mary Reyes APRN [facility] [place] [address] 10/21/2023 11:30 AM EDT Appointment [place] [address] Mary Reyes [facility] [address] 10/21/2023 12:30 PM EDT Appointment [place] [address] Mary Reyes [facility] [address] 10/21/2023 1:30 PM EDT Appointment [place] [address] [place] [address] 10/21/2023 2:30 PM EDT Appointment [place] [address] [place] [address] 10/26/2023 4:00 PM EDT Office Visit Cardiology at [address] [phone] Jaspreet Kinsey MD [facility] [place] [address] 10/28/2023 9:00 AM EDT Office [place] [address] 10/29/2023 10:00 AM EDT Clinical [place] [address] 10/29/2023 10:15 AM EDT Procedure [place] [address] 11/01/2023 5:00 PM EDT Office Visit Gastroenterology at [place] [phone] Selene Browning, PhD [facility] [place] [address] 11/22/2023 4:40 PM EDT [place] [address] Porsha Mcdaniels MD [facility] [place] [address] 12/13/2023 10:00 AM EDT Clinical [place] [address] Lucero Romero, [place] [facility] [place] [place] [address] documented as of this encounter Visit Diagnoses Not on filedocumented in this encounter Care Teams Care Rep Relationship Specialty Start Date End Date Polo Pearce PA [address] [place] [address] PCP - General Internal Medicine 06/09/21 documented as of this encounter
--- OUTSIDE RECORDS SUMMARY | 2023-10-02 22:46 | XMS_ITS | Encounter Summary ---
Author Organization Formerly [facility] [place] [address] Care Team Providers Care Digital Account Coordinator Name Role Phone Polo Pearce Primary Care Provider [phone] Encounter Details Date Type Department Care Team (Late st Contact Info) Description 08/31/2022 External [place] [phone] Social History Tobacco Use Types Packs/Day Years [...] AM EDT Tech [place] [phone] [place]anning [place] 10/08/2023 9:30 AM EDT Office Visit [place] [phone] Thiago aWy MD [facility] [place] [address] 10/21/2023 10:30 AM EDT Appointment [place] [address] Mayr Reyes [place] [address] 10/21/2023 11:30 AM EDT Appointment Nuclear Medicine at [place] [phone] Mary Reyes [place] [address] 10/21/2023 12:30 PM EDT Appointment Nuclear Medicine at [place] [phone] Mary Reyes [facility] [address] 10/21/2023 1:30 PM EDT Appointment [place] [address] Mary Reyes [place] [address] 10/21/2023 2:30 PM EDT Appointment [place] [address] Mary Reyes [place] [address] 10/26/2023 4:00 PM EDT Office Visit Cardiology at [address] [phone] Jaspreet Kinsey MD [facility] [place] [address] 10/28/2023 9:00 AM EDT Office [place] [address] 10/29/2023 10:00 AM EDT Clinical [place] [address] 10/29/2023 10:15 AM EDT Procedure [place] [address] 11/01/2023 5:00 PM EDT Office Visit Gastroenterology at [place] [phone] Selene Browning, PhD [facility] [place] [address] 11/22/2023 4:40 PM EDT Office Visit Cardiology at [place] [phone] Porsha Mcdaniels MD [facility] [place] [address] 12/13/2023 10:00 AM EDT Clinical [place] [address] Lucero Romero, ALVA [facility] [place] [address] documented as of this encounter Procedures Procedure Name Priority Date/Time Associated Diagnosis Comments ECG SCAN Routine 08/31/2022 2:00 PM EDT documented in this encounter Results * Scan Doc: ECG (08/31/2022 2:00 PM EDT) Historical Provider MD LONNIE PRAKASH SCAN EX T ORDR/RSLT documented in this encounter Visit Diagnoses Not on filedocumented in this encounter Care Teams Digital Account Coordinator Relationship Specialty Start Date End Date Polo Pearce PA [address] [place] [address] PCP - General Internal Medicine 06/09/21 documented as of this encounter
--- OUTSIDE RECORDS SUMMARY | 2023-10-02 22:46 | XMS_ITS | Encounter Summary ---
Author Organization [facility] Address [facility] [place] [address] Care Team Providers Care Facility Examiner Name Role Phone Polo Pearce Primary Care Provider [phone] Encounter Details Date Type Department Care Team (Late st Contact Info) Description 02/08/2023 Telephone Cardiology at [address] [phone] Ericka Brenner PA [facility] [place] [address] Social History Tobacco Use Types Packs/Day Years [...] Provider: Dr. Iyer Patient Location: [facility] Brief History 52 year old female with [...] acute aortopathy. 4. No acute pulmonary findings. [facility] 08/2019: Conclusions: * Normal coronary arteries OSH Interventions: Sl nitro Full dose ASA Assessment & Plan: 52 year old female with history of prior NSTEMI with normal coronaries 2019, recent coronary CTA with ca score 198), HTN, HLD, HFpEF, Afib (on Eliquis) who is presenting with chest pain. Has had similar presentation in 2019 with a [facility] demonstrating normal coronaries at that time. However [...] as type 1 NSTEMI [place] [facility] [place]. - agree with nitro gtt if not chest pain free - if persistent chest pain with nitro gtt would load Plavix 600mg - start IV heparin gtt 12 hours post last dose of Eliquis - BB as able, [place] statin - [place] [facility] [place]/08[place]23 Above recommendations were based on my discussion with Dr. Iyer; I have not personally interviewed or examined this patient. I encouraged them to contact us if there is any change in symptoms, decision- making, or further need for guidance in management. JOCY Valdivia-Chauncey Access Pager [phone] 02/08/2023 documented in this encounter Plan of Treatment Upcoming Encounters Date Type Department Care Team (Late st Contact Info) Description 10/08/2023 8:30 AM EDT Tech Visit Vascular Lab at [place] [phone] Channing Escobedo [place] 10/08/2023 9:30 AM EDT Office Visit Vascular Surgery at [place] [phone] MD [facility] [place] [place] [address] 10/21/2023 10:30 AM EDT Appointment Nuclear Medicine at [place] [phone] Mary Reyes [facility] [place] [address] 10/21/2023 11:30 AM EDT Appointment Nuclear Medicine at [place] [phone] Mary Reyes APRN [facility] [place] [address] 10/21/2023 12:30 PM EDT Appointment [place] [address] [place] [address] 10/21/2023 1:30 PM EDT Appointment [place] [address] [place] [address] 10/21/2023 2:30 PM EDT Appointment [place] [address] [place] [address] 10/26/2023 4:00 PM EDT Office Visit Cardiology at [address] [phone] Jaspreet Kinsey MD [facility] [place] [address] 10/28/2023 9:00 AM EDT Office [place] [address] 10/29/2023 10:00 AM EDT Clinical [place] [address] 10/29/2023 10:15 AM EDT Procedure [place] [address] 11/01/2023 5:00 PM EDT Office Visit [place] [address] Selene Browning, PhD [facility] [place] [address] 11/22/2023 4:40 PM EDT Office Visit Cardiology at [address] [phone] Porsha Mcdaniels MD [facility] [place] [address] 12/13/2023 10:00 AM EDT Clinical Support [place] [phone] [facility] [place] [address] documented as of this encounter Visit Diagnoses Not on filedocumented in this encounter Care Teams Facility Examiner Relationship Specialty Start Date End Date Polo Pearce PA [address] [place] [address] PCP - General Internal Medicine 06/09/21 documented as of this encounter
--- OUTSIDE RECORDS SUMMARY | 2023-10-02 22:46 | XMS_ITS | Encounter Summary ---
Author Organization [facility] Address [facility] [place] [address] Care Team Providers Care Sql Data Architect Name Role Phone Polo Pearce Primary Care Provider [phone] Encounter Details Date Type Department Care Team (Late st Contact Info) Description 12/22/2022 Telephone Cardiology at [address] [place] [address] Jaspreet Kinsey MD [facility] [address] [address] Social History Tobacco Use Types Packs/Day Years [...] AM EDT Tech [place] [phone] Channing Escob[place] 10/08/2023 9:30 AM EDT Office Visit [place] [phone] MD [facility] DR VASCULAR SURGERY [address] 10/21/2023 10:30 AM EDT Appointment Nuclear Medicine at [place] [phone] [place] [address] 10/21/2023 11:30 AM EDT Appointment Nuclear Medicine at [place] [phone] [place] [address] 10/21/2023 12:30 PM EDT Appointment [place] [phone] [place] [address] 10/21/2023 1:30 PM EDT Appointment [place] [phone] [place] [address] 10/21/2023 2:30 PM EDT Appointment [place] [phone] Mary Reyes APRN [facility] DR HOSPITAL MEDICINE [address] 10/26/2023 4:00 PM EDT Office Visit Cardiology at [address] [phone] Jaspreet Kinsey MD [facility] [address] [place] [address] 10/28/2023 9:00 AM EDT [place] [address] 10/29/2023 10:00 AM EDT Clinical [place] [address] 10/29/2023 10:15 AM EDT [place] [address] 11/01/2023 5:00 PM EDT Office Visit Gastroenterology at [place] [phone] Selene Browning, PhD [facility] PSYCHIATRY DEPT [address] 11/22/2023 4:40 PM EDT Office Visit Cardiology at [address] [phone] Porsha Mcdaniels MD [facility] [address] [place] [address] 12/13/2023 10:00 AM EDT Clinical Support [place] [phone] [facility] DR NUTRITION SERVICES [address] documented as of this encounter Visit Diagnoses Not on filedocumented in this encounter Care Teams Sql Data Architect Relationship Specialty Start Date End Date Polo Pearce PA [address] [place] [address] PCP - General Internal Medicine 06/09/21 documented as of this encounter
--- OUTSIDE RECORDS SUMMARY | 2023-10-02 22:46 | XMS_ITS | Encounter Summary ---
[place] [address] Care Team Providers Care Proposal Rep Name Role Phone Polo Pearce Primary Care Provider [phone] Reason for Visit * Auth/Cert (Routine) Specialty Diagnoses / Procedures Referred By Jayant t Referred To Contact Diagnoses NSTEMI (non-ST elevated myocardial infarction) NSTEMI NSTEMI (non-ST elevated myocardial infarction) [I21.4] [I21.4] NSTEMI (non-ST elevated myocardial infarction) Procedures EMERGENCY IPI Itz Bhardwaj MD [facility] [place] [address] [facility] Referral ID Status Reason Start Date Expiration Date Visits Re quested Visits Authorized [id number] 1 1 Encounter Details Date Type Department Care Team (Latest Contact Info) Description 02/08/2023 6:34 PM EST - 02/11/2023 3:45 PM EST Hospital Encounter Heart and Vascular Unit Level 4 [place] [id number] Bobby Edmonds MD [facility] [place] [address] Itz Bhardwaj MD [facility] [place] [address] Chest pain, unspecified type; NSTEMI (non-ST elevated myocardial infarction) Discharge Disposition: Home Social History Tobacco Use Types Packs/Day Years Used Date Smoking Tobacco: Never Smokeless Tobacco: Never Alcohol Use Standard Drinks/Week Comments Never 0 (1 standard drink = 0.6 oz pur e alcohol) [facility] Utilities Answer Date Recorded In the [...] Loida Madrigal Patient Age: 52 y.o. Language: Albanian Race: White Ethnicity: Not nor Admit date: 02/08/2023 Discharge date and time: 02/11/2023 Attending Physician: Itz Bhardwaj MD Discharge Physician: Itz Bhardwaj MD PCP: JOCY Franco ([phone]) ID: Loida Madrigal is a 52 y.o. female w/ PMH of NSTEMI (2019, no coronary disease identified),HTN, HLD, HFpEF, PE, AVNRT, and Afib on eliqu, admitted to [facility] on 02/08/2023 for a total of 3 [...] upper lobe. Started on eliquis 08/2022 TTE ([facility]): normal bi-v s/f. 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 In the [facility] ED, initial troponin was elevated at 622ng/L. D-Dimer was 264 and K was 3.2. Pro-BNP was elevated at 1256. CXR did not show acute process. An EKG was performed and showed ST-depressions in leads II, III, aVF, and V4-V6. She was given several doses of sublingual nitroglycerin without significant reduction in chest pain. Given her elevated troponin and EKG changes, cardiology at [facility] was contacted for transfer. She was loaded [...] unchanged from prior EKGs. Her troponins at [facility] are flat 23 > 27. Additionally, she had a CT coronary in 09/2022 which showed non-obstructive coronary arteries. Her TTE was reassuring with EF 59% with concern for segmental wall motion abnormalities that were not present prior. Her chest pain is likely not related to ACS. She did continue to have chest pain throughoutadmission that responded to nitro. 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 Refills: 0 fluticasone propionate 50 mcg/actuation [place], Suspension Commonly known as: Flonase 1 spray [...] 11:20 AM Jed Tovar MD Cardiology at [facility] Arrive at: [place] [phone] 03/04/2023 4:00 PM Jaspreet Kinsey MD Cardiology at [place] Arrive at: [facility] [address] [phone] Provider Contact Information: JOCY [address] / [facility] [id number] Discharge References/Attachments: Discharge References/Attachments None Addendum: The [...] as needed. fluticasone propionate (FLONASE) 50 mcg/actuation [place], Suspension 1 spray by Each Nare route [...] Afib on eliquis who initially presented to [facility] with chest pain and shortness of breath. [...] Labs Recent Labs 02/10/23 0346 02/09/23 0355 02/08/23 2208 WBC 6.7 6.8 7.7 HGB 14.4 14.2 15.6* HCT 42.2 41.2 46.9* PLATELET 246 237 201 Recent Labs 02/10/23 0346 02/09/23 1446 02/09/23 0355 02/08/23 2208 NA 141 -- 142 151* K 3.4* 4.0 2.9* 3.4* CL 105 -- 103 91* CO2 23 -- 24 12* BUN 20* -- 19* 17 CREATININE 1.31* -- 1.13 0.96 No results for input(s): AST, ALT, ALKPHOS, BILITOT, BILIDIR in the last 168 hours. Recent Labs 02/10/23 0346 02/09/23 0355 02/08/23 2208 CALCIUM 9.2 9.4 8.9 MAGNESIUM 1.01 1.04 [...] that was done by the on-call overnight fishing instructor, there is no significant change in biventricular function. Assessment: Loida Madrigal is a 52 y.o. female with a PMHx NSTEMI (2019, no coronary disease identified), HTN, HLD, HFpEF, and Afib on [facility] who initially presented to [facility] with chest pain and shortness ofbreath. There [...] Heidy Walker DO Internal Medicine PGY-1 Pager [phone], M1-S2 Service Associated attestation - Itz Bhardwaj [...] Afib on eliquis who initially presented to [facility] with chest pain and shortness of breath. [...] that was done by the on-call overnight fishing instructor, there is no significant change in biventricular function. Cardiac Catheterization: Pending. Assessment: Loida Madrigal is a 52 y.o. female with a PMHx NSTEMI (2019, no coronary disease identified), HTN, HLD, HFpEF, and Afib on eliquis who initially presented to [facility] with chest pain and shortness ofbreath. There [...] Heidy Walker DO Internal Medicine PGY-1 Pager [phone], M1-S2 Service documented in this encounter H&P Notes * German Bianchi MD - 02/08/2023 10:05 PM EST Images from the original note were not included. Cardiology Admission History and Physical Patient Name: Loida Madrigal Service: M1-S1 Responsible Attending: Bobby Edmonds MD PCP: JOCY Franco PCP phone #: [phone] ID/Chief Complaint: Loida Madrigal is a 52 y.o. female with a PMHx NSTEMI (2019, no coronary disease identified), HTN, HLD, HFpEF, PE, AVNRT, and Afib on eliquis who initially presented to [facility] with chest pain and shortness of breath, now transferred to [facility] for management of presumed NSTEMI. History of [...] At this time, she presented to the [facility] ED. In the [facility] ED, initial troponin was elevated at 622ng/L. D-Dimer was 264 and K was 3.2. Pro-BNP was elevated at 1256. CXR did not show acute process. An EKG was performed and showed ST-depressions in leads II, III, aVF, and V4-V6. She was given several doses of sublingual nitroglycerin without significant reduction in chest pain. Given her elevated troponin and EKG changes, cardiology at [facility] was contacted for transfer. She was loaded [...] upper lobe. Started on eliquis 08/2022 TTE ([facility]): normal bi-v s/f. 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 fluticasone propionate (FLONASE) 50 mcg/actuation [place], Suspension 1 spray by Each Nare route [...] Mother: history of stroke. Father: history of MN in father. Siblings: none. Social History: Tobacco: [...] Afib on eliquis who initially presented to [facility] with chest pain and shortness of breath, now transferred to [facility] for management of presumed NSTEMI. Mrs. Madrigal [...] Bianchi MD, PGY-2 Cardiology M1-S2, Team Pager [phone] 02/08/2023 Associated attestation - Itz Bhardwaj MD [...] fairly recent. She has ruled out for MN with low-level not increasing troponins and her [...] in an outpatient cardiac rehabilitation program at [facility] was discussed. Patient agrees to a referral [...] COVID test: Lab Results Component Value Date [id number] Not Detected 06/13/2021 Present on Admission: NSTEMI (non-ST elevated myocardial infarction) Hospitalizations Within the Past 30 Days: no previous admission in last 30 days Patient receiving hospital care under Inpatient status. Admission order reviewed. Health/Prescription Coverage: Primary Insurance: [facility]flap [facility] Payor: fflap [facility] [place] / Plan: [facility] [place] EXCHANGE / Product Type: *No Product type* / Secondary Insurance: N/A ; Prescription Coverage: Yes Preferred Pharmacy: [id number] - [place], [place] - [address] [facility] [address] [facility] [address] [facility] - [place], [place] - [address] [facility] [address] [facility] [address] [facility] [address] Advance Care Planning: Attempt Cardiopulmonary Resuscitation - Inpatient <no information> -Advanced Directive: No, need to discuss (Referral sent to [facility] - Religious Ritual Slaughterer) Current Functional Ability: Independent Functional Status Prior to Admission: Independent Home Environment: Others in the home: spouse (Lives w/ (Boby)). Current Living Arrangements: home/apartment/condo. Accessibility Concerns:1.5 story home (steps w/ railings). 5-6 [place]TER[place] home. No concerns. Current DME: respiratory supplies ([employer] ([facility])) [address] [facility] [address] Social & Family Supports: All names listed [...] Plan: Patient to d/c to home via olivier Tasha, when medically ready. Registered Nurse Mac Developer / Day Care Provider will continue to follow patient???s progress and [...] AM EDT Tech [place] [phone] [place] 10/08/2023 9:30 AM EDT Office [place] [address] MD [facility] [place] [address] 10/21/2023 10:30 AM EDT Appointment Nuclear Medicine at [place] [phone] Mary Reyes [facility] [address] 10/21/2023 11:30 AM EDT Appointment [place] [phone] Mary Reyes [employer]ER [facility] [place] [address] 10/21/2023 12:30 PM EDT Appointment [place] [phone] Mary Reyes [employer] [facility] [place] [address] 10/21/2023 1:30 PM EDT Appointment Nuclear Medicine at [place] [phone] Mary Reyes [place] [address] 10/21/2023 2:30 PM EDT Appointment [place] [address] [place] [address] 10/26/2023 4:00 PM EDT Office Visit Cardiology at [address] [phone] Jaspreet Kinsey MD [facility] [place] [address] 10/28/2023 9:00 AM EDT Office [place] [address] 10/29/2023 10:00 AM EDT Clinical Support [place] [address] 10/29/2023 10:15 AM EDT Procedure [place] [address] 11/01/2023 5:00 PM EDT Office [place] [address] Selene Browning, PhD [facility] [place] [address] 11/22/2023 4:40 PM EDT Office Visit Cardiology at [address] [phone] Porsha Mcdaniels MD [facility] [place] [address] 12/13/2023 10:00 AM EDT Clinical Support Gastroenterology at [facility] [place] [place] [phone] [facility] [place] [place] [address] documented as of this encounter Procedures Procedure [...] multiple bacterial species suggesting mucosal contamination. (A) [facility] Urine 02/11/2023 9:30 AM EST 02/11/2023 1:19 PM EST Narrative Resulting Agency Comment Spec In Lab Heidy Walker MD MICROBIOLOGY - GENER AL ORDERABLES Performing Organization Address [facility]/ZIP Co de Phone Number [facility] [place] [address] * (ABNORMAL) Urinalysis Microscopic Exam (02/11/2023 9:30 AM EST) Pathologist [facility] RBC UA 1 0 - 4 /HPF [facility] WBC UA 29(H) 0 - 5 /HPF [facility] Bacteria UA Few(A) None /HPF [facility] Squam Epith UA 1 <=4 /HPF [facility] Trans Epith UA 2(H) <=1 /HPF [facility] Hyaline Cast UA 2 0 - 2 /LPF [facility] CaOx Mattie UA Moderate(A ) None /HPF [facility] Urine Urine / Unknown 02/11/2023 9 :30 AM EST 02/11/2023 10:33 AM EST Narrative Resulting Agency Comment Spec In Lab Heidy Walker MD URINE ORDERABLES Performing Organization Address City/[facility]/ZIP Co de Phone Number [facility] [place] [address] * (ABNORMAL) Urinalysis with reflex Culture (02/11/2023 9:30 AM EST) Pathologist [facility] Glucose UA 500(Critica l) Negative mg/dL [facility] Comment: Urinalysis result NOT critical without a combination of Glucose greater than or equal to 500 mg/dL AND Ketones greater than or equal to 80 mg/dL Protein UA Negative Negative mg/dL [facility] Bilirubin UA Negative Negative mg/dL [facility] Comment: Clinical correlation required for positive Urine Bilirubin results as false positive may occur with some drugs and drug related products. If a false positive is suspected a serum total bilirubin should be considered if clinically indicated. Urobilinogen UA Normal Normal mg/dL [facility] pH UA 5.5 5.0 - 8.0 [facility] Blood UA Negative Negative mg/dL [facility] Ketones UA Trace(A) Negative mg/dL [facility] Nitrite UA Negative Negative [facility] Leukocytes UA Moderate(A) Negative mcL [facility] Appearance UA Cloudy(A) Clear [facility] Spec Roscoe UA 1.029 1.005 - 1.030 [facility] Color UA Dark Yellow Yellow [facility] Culture Reflexed Yes [facility] Urine Urine / Unknown 02/11/2023 9 :30 AM EST 02/11/2023 10:32 AM EST Narrative Resulting Agency Comment Spec In Lab Heidy Walker MD URINE ORDERABLES [facility] [place] [address] * EKG 12 Lead (02/11/2023 6:07 AM EST) Ventricular rate 47 BPM MUSE SYSTEM Atrial Rate 47 BPM MUSE SYSTEM P-R Interval 200 ms MUSE SYSTEM QRS Duration 88 ms MUSE SYSTEM Q-T Interval 522 ms MUSE SYSTEM QTC Calculated (Bezet) 461 ms MUSE SYSTEM Calculated P [place] 36 degrees MUSE SYSTEM Calculated R [place] 48 degrees MUSE SYSTEM Calculated T [place] 12 degrees MUSE SYSTEM INTERPRETATION Sinus bradycardia Possible Left atrial enlargement Possible Lateral infarct (cited on or before 08-FEB-2023) Long QT interval Abnormal ECG When compared with ECG of 10-FEB-2023 11:44, No significant change was found I personally reviewed the tracing and edited the fellows interpretation Confirmed by fellow MD Rosalinda, Alejandro ([id number]) on 02/11/2023 2:15:46 PM Confirmed by Kai Haider ([id number]) on 02/11/2023 4:16:20 PM MUSE SYSTEM 02/11/2023 6:07 AM EST 02/11/2023 4:16 PM EST Itz Bhardwaj MD ECG ORDERABLES MUSE SYSTEM * Differential, Automated (02/11/2023 3:41 AM EST) Neutrophils % 53.9 % [facility] Neutr Abs (ANC) 3.50 1.70 - 6.10 x10(3)/[facility] Lymphocytes % 31.5 % [facility] Lymphocytes Abs 2.0 0.9 - 3.2 x10(3)/[facility] Monocytes % 8.9 % [facility] Monocyte Abs 0.6 0.3 - 0.9 x10(3)/[facility] Eosinophils % 4.9 % [facility] Eosinophils Abs 0.3 0.0 - 0.4 x10(3)/[facility] Basophils % 0.6 % [facility] Basophils Abs 0.0 0.0 - 0.1 x10(3)/[facility] Immature Gran % 0.20 % [facility] Comment: Immature granulocytes(IG's)percentage and absolute count will include metamyelocytes, myelocytes, and promyelocytes. Blood smears from CBCs yielding IG's will be scanned manually for concordance. If this scan disagrees with the automated IG or if promyelocytes are noted, a manual differential will be performed. Shonda Gran Abs 0.01 0.00 - 0.04 x10(3)/[facility] Blood 02/11/2023 3:41 AM EST 02/11/2023 4:01 AM EST Narrative Resulting Agency Comment Spec In Lab German Bianchi MD HEMATOLOGY ORDERABL ES [facility] [place] [address] * Hemogram (02/11/2023 3:41 AM EST) WBC 6.5 4.0 - 9.5 x10(3)/[facility] RBC 4.55 4.00 - 5.21 x10(6)/[facility] Hemoglobin 14.4 11.7 - 15.5 g/dL [facility] Hematocrit 42.9 35.7 - 45.8 % [facility] MCV 94.3 82.6 - 94.4 fL [facility] MCH 31.6 27.1 - 32.0 pg [facility] MCHC 33.6 31.7 - 35.0 g/dL [facility] Platelets 240 145 - 357 x10(3)/[facility] RDWSD 42.9 37.0 - 46.0 [facility] RDWCV 12.4 11.5 - 14.1 % [facility] MPV 11.0 7.6 - 12.9 [facility] nRBC % Auto 0.0 % [facility] nRBC Abs Auto 0.000 0.000 - 0.000 x10(3)/[facility] Blood 02/11/2023 3:41 AM EST 02/11/2023 4:01 AM EST Narrative Resulting Agency Comment Spec In Lab German Bianchi MD HEMATOLOGY ORDERABL ES Performing Organization Address City/[facility]/ZIP Co de Phone Number [facility] [place] [address] * Magnesium (02/11/2023 3:41 AM EST) Magnesium 0.91 0.69 - 1.07 mmol/L [facility] Blood 02/11/2023 3:41 AM EST 02/11/2023 4:01 AM EST Narrative Resulting Agency Comment Spec In Lab Bobby Edmonds MD CHEMISTRY ORDERABLES Performing Organization Address [facility] Co de Phone Number [facility] [place] [address] * (ABNORMAL) Basic Metabolic Panel (non-fasting) (02/11/2023 3:41 AM EST) Glucose Lvl 97 65 - 199 mg/dL [facility] Comment:Diabetes: >=200 mg/d L plus symptoms BUN 23(H) 8 - 18 mg/dL [facility] Creatinine 1.07 0.70 - 1.20 mg/dL [facility] Sodium 138 135 - 145 mmol/L [facility] Potassium 4.0 3.5 - 5.0 mmol/L [facility] Comment: Please note: ??Patients with WBC >100,000 may have falsely elevated Potassium levels. ??For accurate Potassium quantification in these patients send serum separator tube (gold top) for subsequent determinations. ??Contact the Clinical Chemistry Laboratory if there are any questions. Chloride 109(H) 98 - 107 mmol/L [facility] CO2 17(L) 22 - 31 mmol/L [facility] Anion Gap 12 5 - 15 mmol/L [facility] Calcium 9.1 8.5 - 10.5 mg/dL [facility] Estimated GFR 62 >=60 mL/min/1. 73 m?? [facility] [...] In Lab Bobby Edmonds MD CHEMISTRY ORDERABLES [facility] [place] [id number] * Differential, Automated (02/10/2023 3:46 AM EST) Neutrophils % 59.8 % [facility] Neutr Abs (ANC) 4.01 1.70 - 6.10 x10(3)/[facility] Lymphocytes % 27.5 % [facility] Lymphocytes Abs 1.8 0.9 - 3.2 x10(3)/[facility] Monocytes % 8.5 % [facility] Monocyte Abs 0.6 0.3 - 0.9 x10(3)/[facility] Eosinophils % 3.7 % [facility] Eosinophils Abs 0.2 0.0 - 0.4 x10(3)/[facility] Basophils % 0.4 % [facility] Basophils Abs 0.0 0.0 - 0.1 x10(3)/[facility] Immature Gran % 0.10 % [facility] Comment: Immature granulocytes(IG's)percentage and absolute count will include metamyelocytes, myelocytes, and promyelocytes. Blood smears from CBCs yielding IG's will be scanned manually for concordance. If this scan disagrees with the automated IG or if promyelocytes are noted, a manual differential will be performed. Shonda Gran Abs 0.01 0.00 - 0.04 x10(3)/[facility] Blood 02/10/2023 3:46 AM EST 02/10/2023 4:12 AM EST Narrative Resulting Agency Comment Spec In Lab German Bianchi MD HEMATOLOGY ORDERABL ES [facility] [place] [address] * Hemogram (02/10/2023 3:46 AM EST) WBC 6.7 4.0 - 9.5 x10(3)/[facility] RBC 4.60 4.00 - 5.21 x10(6)/[facility] Hemoglobin 14.4 11.7 - 15.5 g/dL [facility] Hematocrit 42.2 35.7 - 45.8 % [facility] MCV 91.7 82.6 - 94.4 [facility] MCH 31.3 27.1 - 32.0 pg [facility] MCHC 34.1 31.7 - 35.0 g/dL [facility] Platelets 246 145 - 357 x10(3)/[facility]ORAT[facility] RDWSD 42.3 37.0 - 46.0 [facility] RDWCV 12.6 11.5 - 14.1 % [facility] MPV 11.1 7.6 - 12.9 [facility] nRBC % Auto 0.0 % [facility] nRBC Abs Auto 0.000 0.000 - 0.000 x10(3)/[facility] Blood 02/10/2023 3:46 AM EST 02/10/2023 4:12 AM EST Narrative Resulting Agency Comment Spec In Lab German Bianchi MD HEMATOLOGY ORDERABL ES Performing Organization Address City/[facility]/ZIP Co de Phone Number [facility] [place] [address] * Magnesium (02/10/2023 3:46 AM EST) Pathologist [facility] Magnesium 1.01 0.69 - 1.07 mmol/L [facility] Blood 02/10/2023 3:46 AM EST 02/10/2023 4:12 AM EST Narrative Resulting Agency Comment Spec In Lab Bobby Edmonds MD CHEMISTRY ORDERABLES Performing Organization Address [facility] Co de Phone Number [facility] [place] [address] * (ABNORMAL) Basic Metabolic Panel (non-fasting) (02/10/2023 3:46 AM EST) [facility] Glucose Lvl 103 65 - 199 mg/dL [facility] Comment:Diabetes: >=200 mg/d L plus symptoms BUN 20(H) 8 - 18 mg/dL [facility] Creatinine 1.31(H) 0.70 - 1.20 mg/dL [facility] Sodium 141 135 - 145 mmol/L [facility] Potassium 3.4(L) 3.5 - 5.0 mmol/L [facility] Comment: Please note: ??Patients with WBC >100,000 may have falsely elevated Potassium levels. ??For accurate Potassium quantification in these patients send serum separator tube (gold top) for subsequent determinations. ??Contact the Clinical Chemistry Laboratory if there are any questions. Chloride 105 98 - 107 mmol/L [facility] CO2 23 22 - 31 mmol/L [facility] Anion Gap 13 5 - 15 mmol/L [facility] Calcium 9.2 8.5 - 10.5 mg/dL [facility] Estimated GFR 49(L) >=60 mL/min/1. 73 m?? [facility] [...] Edmonds MD CHEMISTRY ORDERABLES Performing Organization Address [facility] Co de Phone Number [facility] [place] [address] * Potassium (02/09/2023 2:46 PM EST) [facility] Potassium 4.0 3.5 - 5.0 mmol/L [facility] [...] MD CHEMISTRY ORDERABL ES Performing Organization Address [facility] Co de Phone Number [facility] [place] [address] * ECHO LMTD W CONTRAST W LMTD SPEC DOPP COLOR DOPP (02/09/2023 9:01 AM EST) Anatomical Region Laterality Modality Cardiac Other 02/09/2023 8:19 AM EST Narrative 02/09/2023 9:39 AM EST 1 [place] [address] ? Echocardiogram Report Name: LOIDA MADRIGAL ? Study Date: 02/09/2023 08:19 AMBP: 98/57 mmHg ? Patient Location: [address] : 1970 ? Height: 163 cm ? Account: [id number] Age: 52 yrs ? Weight: 99 kg Gender: Female ?BSA: 2.0 m2 Ordering Physician: BOBBY EDMONDS Referring Physician: AJ HARTMAN Performed By: Aaron Herr RDCS Reason For Study: NSTEMI (non-ST elevated myocardial infarction) Interpreting Fellow: Ciro Lovell. Exam Location: [facility]. Interpretation Summary Left ventricular systolic function [...] that was done by the on-call overnight fishing instructor, there is no significant change in biventricular function. Procedure Limited - 62550. Image enhancement Definity was used for left [...] 6-14 ?large Aneurysmal ?15-16 ?? diffuse Procedure Manish Mandel MD - 02/09/2023 1 [place] [address] Echocardiogram Report Name: LOIDA MADRIGAL Study Date: 308:19 AMBP: 98/57 mmHg Patient Location: [address] : 1970 Height: 163 cm Account: [id number] Age: 52 yrs Weight: 99 kg Gender: Female BSA: 2.0 m2 Ordering Physician: BOBBY EDMONDS Referring Physician: AJ HARTMAN Performed By: Aaron Herr RDCS Reason For Study: NSTEMI (non-ST elevated myocardial infarction) Interpreting Fellow: Ciro Lovell. Exam Location: [facility]. Interpretation Summary Left ventricular systolic function [...] change in biventricular function. Procedure Limited - 38678. Image enhancement Definity was used for leftventricular [...] * (ABNORMAL) Troponin (02/09/2023 8:01 AM EST) [facility] Troponin-T HS 27(H) <=14 ng/L [facility] Comment: This patient's troponin [...] value can be found in the [facility] Test Catalog Troponin - [facility] Test Catalog Reference: Fourth [place] Definition of Myocardial Infarction. Journal of the [place] College [employer] 2018;72:6713-2893 Blood 02/09/2023 8:01 AM EST 02/09/2023 8:06 AM EST Narrative Resulting Agency Comment Spec In Lab Itz Bhardwaj MD CHEMISTRY ORDERABL ES Performing Organization Address [facility] Co de Phone Number [facility] [place] [address] * CRP, acute inflammation (02/09/2023 3:55 AM EST) CRP <3.0 <=4.9 mg/L [facility] Blood Venous Draw / Unknown 02/09/2023 3:55 AM EST 02/09/2023 4:07 AM EST Narrative Resulting Agency Comment Spec In Lab Grady Metcalf MD CHEMISTRY ORDERABLES Performing Organization Address [facility] de Phone Number [facility] [place] [address] * Sedimentation rate (02/09/2023 3:55 AM EST) Sed Rate 15 2 - 39 mm/hr [facility] Comment: Effective February 15, [...] MD HEMATOLOGY ORDERABLE S Performing Organization Address [facility] Co de Phone Number [facility] [place] [address] * Differential, Automated (02/09/2023 3:55 AM EST) Neutrophils % 54.3 % [facility] Neutr Abs (ANC) 3.66 1.70 - 6.10 x10(3)/mcL [facility] Lymphocytes % 32.4 % [facility] Lymphocytes Abs 2.2 0.9 - 3.2 x10(3)/[facility] Monocytes % 8.3 % [facility] Monocyte Abs 0.6 0.3 - 0.9 x10(3)/[facility] Eosinophils % 4.1 % [facility] Eosinophils Abs 0.3 0.0 - 0.4 x10(3)/[facility] Basophils % 0.6 % [facility] Basophils Abs 0.0 0.0 - 0.1 x10(3)/[facility] Immature Gran % 0.30 % [facility] Comment: Immature granulocytes(IG's)percentage and absolute count will include metamyelocytes, myelocytes, and promyelocytes. Blood smears from CBCs yielding IG's will be scanned manually for concordance. If this scan disagrees with the automated IG or if promyelocytes are noted, a manual differential will be performed. Shonda Gran Abs 0.02 0.00 - 0.04 x10(3)/[facility] Blood 02/09/2023 3:55 AM EST 02/09/2023 4:06 AM EST Narrative Resulting Agency Comment Spec In Lab German Bianchi MD HEMATOLOGY ORDERABL ES Performing Organization Address City/State/[facility] Co de Phone Number [facility] [place] [address] * Hemogram (02/09/2023 3:55 AM EST) WBC 6.8 4.0 - 9.5 x10(3)/[facility] RBC 4.53 4.00 - 5.21 x10(6)/[facility] Hemoglobin 14.2 11.7 - 15.5 g/dL [facility] Hematocrit 41.2 35.7 - 45.8 % [facility] MCV 90.9 82.6 - 94.4 fL [facility] MCH 31.3 27.1 - 32.0 pg [facility] MCHC 34.5 31.7 - 35.0 g/dL [facility] Platelets 237 145 - 357 x10(3)/[facility] RDWSD 41.1 37.0 - 46.0 fL [facility] RDWCV 12.4 11.5 - 14.1 % [facility] MPV 11.2 7.6 - 12.9 fL [facility] nRBC % Auto 0.0 % [facility] nRBC Abs Auto 0.000 0.000 - 0.000 x10(3)/[facility] Blood 02/09/2023 3:55 AM EST 02/09/2023 4:06 AM EST Narrative Resulting Agency Comment Spec In Lab German Bianchi MD HEMATOLOGY ORDERABL ES [facility] [place] [id number] * (ABNORMAL) Heparin (unfractionated) Level (02/09/2023 3:55 AM EST) Heparin UFH Level 1.44(Crit ical) IU/mL [facility] Comment: Critical Result called [...] MD HEMATOLOGY ORDERABLE S Performing Organization Address City/[facility] Co de Phone Number [facility] [place] [address] * Magnesium (02/09/2023 3:55 AM EST) Magnesium 1.04 0.69 - 1.07 mmol/L [facility] Blood 02/09/2023 3:55 AM EST 02/09/2023 4:06 AM EST Narrative Resulting Agency Comment Spec In Lab Bobby Edmonds MD CHEMISTRY ORDERABLES Performing Organization Address City/[facility] Co de Phone Number [facility] [place] [address] * (ABNORMAL) Basic Metabolic Panel (non-fasting) (02/09/2023 3:55 AM EST) Glucose Lvl 103 65 - 199 mg/dL [facility] Comment:Diabetes: >=200 mg/d L plus symptoms BUN 19(H) 8 - 18 mg/dL [facility] Creatinine 1.13 0.70 - 1.20 mg/dL [facility] Sodium 142 135 - 145 mmol/L [facility] Comment:result rechecked- Potassium 2.9(Criti edy) 3.5 - 5.0 mmol/L [facility] Comment: Called by: , Read back by: Zoila Bhatt, Date/Time:02/09/23 04:43. Please note: ??Patients with WBC >100,000 may have falsely elevated Potassium levels. ??For accurate Potassium quantification in these patients send serum separator tube (gold top) for subsequent determinations. ??Contact the Clinical Chemistry Laboratory if there are any questions. Chloride 103 98 - 107 mmol/L [facility] Comment:result rechecked-GH CO2 24 22 - 31 mmol/L [facility] Comment:result rechecked-GH Anion Gap 15 5 - 15 mmol/L [facility] Calcium 9.4 8.5 - 10.5 mg/dL [facility] Estimated GFR 58(L) >=60 mL/min/1. 73 m?? [facility] [...] In Lab Bobby Edmonds MD CHEMISTRY ORDERABLES [facility] [place] [address] * Differential, Automated (02/08/2023 10:08 PM EST) Neutrophils % 55.7 % [facility] Neutr Abs (ANC) 4.29 1.70 - 6.10 x10(3)/[facility] Lymphocytes % 33.0 % [facility] Lymphocytes Abs 2.5 0.9 - 3.2 x10(3)/[facility] Monocytes % 7.7 % [facility] Monocyte Abs 0.6 0.3 - 0.9 x10(3)/[facility] Eosinophils % 2.9 % [facility] Eosinophils Abs 0.2 0.0 - 0.4 x10(3)/[facility] Basophils % 0.6 % [facility] Basophils Abs 0.0 0.0 - 0.1 x10(3)/[facility] Immature Gran % 0.10 % [facility] Comment: Immature granulocytes(IG's)percentage and absolute count will include metamyelocytes, myelocytes, and promyelocytes. Blood smears from CBCs yielding IG's will be scanned manually for concordance. If this scan disagrees with the automated IG or if promyelocytes are noted, a manual differential will be performed. Shonda Gran Abs 0.01 0.00 - 0.04 x10(3)/[facility] Blood 02/08/2023 10:0 8 PM EST 02/08/2023 10:18 PM EST Narrative Resulting Agency Comment Spec In Lab German Bianchi MD HEMATOLOGY ORDERABL ES Performing Organization Address City/State/[facility] Co de Phone Number [facility] [place] [address] * (ABNORMAL) Hemogram (02/08/2023 10:08 PM EST) WBC 7.7 4.0 - 9.5 x10(3)/[facility] RBC 4.93 4.00 - 5.21 x10(6)/[facility] Hemoglobin 15.6(H) 11.7 - 15.5 g/dL [facility] Hematocrit 46.9(H) 35.7 - 45.8 % [facility] MCV 95.1(H) 82.6 - 94.4 fL [facility] MCH 31.6 27.1 - 32.0 pg [facility] MCHC 33.3 31.7 - 35.0 g/dL [facility] Platelets 201 145 - 357 x10(3)/[facility] RDWSD 45.0 37.0 - 46.0 fL [facility] RDWCV 12.8 11.5 - 14.1 % [facility] MPV 11.3 7.6 - 12.9 fL [facility] nRBC % Auto 0.0 % [facility] nRBC Abs Auto 0.000 0.000 - 0.000 x10(3)/mcL [facility] Blood 02/08/2023 10:0 8 PM EST 02/08/2023 10:18 PM EST Narrative Resulting Agency Comment Spec In Lab German Bianchi MD HEMATOLOGY ORDERABL ES [facility] [place] [address] * (ABNORMAL) Troponin (02/08/2023 10:08 PM EST) Troponin-T HS 23(H) <=14 ng/L [facility] Comment: This patient's troponin [...] value can be found in the [facility] Test Catalog Troponin - [facility] Test Catalog Reference: Fourth [place] Definition of Myocardial Infarction. Journal of the [place] College [employer] 2018;72:3200-2830 Blood 02/08/2023 10:0 8 PM EST 02/08/2023 10:18 PM EST Narrative Resulting Agency Comment Spec In Lab Bobby Edmonds MD CHEMISTRY ORDERABLES Performing Organization Address City/[facility]/ZIP Co de Phone Number [facility] [place] [address] * (ABNORMAL) Magnesium (02/08/2023 10:08 PM EST) Magnesium 1.15(H) 0.69 - 1.07 mmol/L [facility] Blood 02/08/2023 10:0 8 PM EST 02/08/2023 10:18 PM EST Narrative Resulting Agency Comment Spec In Lab Bobby Edmonds MD CHEMISTRY ORDERABLES Performing Organization Address City/[facility] Co de Phone Number [facility] [place] [address] * (ABNORMAL) Basic Metabolic Panel (non-fasting) (02/08/2023 10:08 PM EST) Glucose Lvl 106 65 - 199 mg/dL [facility] Comment:Diabetes: >=200 mg/d L plus symptoms BUN 17 8 - 18 mg/dL [facility] Creatinine 0.96 0.70 - 1.20 mg/dL [facility] Sodium 151(H) 135 - 145 mmol/L [facility] Potassium 3.4(L) 3.5 - 5.0 mmol/L [facility] Comment: Please note: ??Patients with WBC >100,000 may have falsely elevated Potassium levels. ??For accurate Potassium quantification in these patients send serum separator tube (gold top) for subsequent determinations. ??Contact the Clinical Chemistry Laboratory if there are any questions. Chloride 91(L) 98 - 107 mmol/L [facility] CO2 12(L) 22 - 31 mmol/L [facility] Anion Gap 48(H) 5 - 15 mmol/L [facility] Calcium 8.9 8.5 - 10.5 mg/dL [facility] Estimated GFR 71 >=60 mL/min/1. 73 m?? [facility] [...] Edmonds MD CHEMISTRY ORDERABLES Performing Organization Address [facility] Co de Phone Number [facility] [place] [address] * (ABNORMAL) pro-Brain Natriuretic Peptide (02/08/2023 10:08 PM EST) ProBNP 850(H) <=124 pg/mL [facility] Blood 02/08/2023 10:0 8 PM EST 02/08/2023 10:18 PM EST Narrative Resulting Agency Comment Spec In Lab Bobby Edmonds MD CHEMISTRY ORDERABLES Performing Organization Address City/[facility] Co de Phone Number [facility] [place] [address] * TSH (02/08/2023 10:08 PM EST) TSH 4.00 0.27 - 4.20 mcIU/mL [facility] Comment: Reference Interval (mcIU/mL): Females: ??First Trimester: 0.23-3.88 ??Second Trimester: 0.22-3.90 ??Third Trimester: 0.44-4.66 Blood 02/08/2023 10:0 8 PM EST 02/08/2023 10:18 PM EST Narrative Resulting Agency Comment Spec In Lab Bobby Edmonds MD CHEMISTRY ORDERABLES Performing Organization Address City/[facility]/ZIP Co de Phone Number [facility] [place] [address] * EKG 12 Lead (02/08/2023 6:38 PM EST) Ventricular rate 56 BPM MUSE SYSTEM Atrial Rate 56 BPM MUSE SYSTEM P-R Interval 182 ms MUSE SYSTEM QRS Duration 88 ms MUSE SYSTEM Q-T Interval 498 ms MUSE SYSTEM QTC Calculated (Bezet) 480 ms MUSE SYSTEM Calculated P [place] 27 degrees MUSE SYSTEM Calculated R [place] 40 degrees MUSE SYSTEM Calculated T [place] 15 degrees MUSE SYSTEM INTERPRETATION Sinus bradycardia [...] EST Unknown ECG ORDERABLES Performing Organization Address [facility] Co de Phone [...] 20 mg, Oral, DAILY, First dose on Aura 02/11/23 at 0900, Until Discontinued, Routine Given 02/11/2023 [...] RN)2110 (Given - Provider: Zoila Bhatt RN) 08 (Given - Provider: Malia Mcintyre RN) atorvastatin (Lipitor) tablet 80 mg 80 mg, Oral, EVERY EVENING, First dose on Wed02/09/23 at 1700, Until Discontinued, Routine 2102 (Given - Provider: Zoila Bhatt RN) 2110 (Given - Provider: Zoila Bhatt RN) bumetanide (Bumex) tablet 2 mg (CANCELED) 2 mg, Oral, 2 TIMES DAILY, First dose on Wed02/09/23 at 1000, Until Discontinued, Routine 936 (Given - Provider: Opal Traore, ERWIN)2102 (Given - Provider: Zoila Bhatt RN) 899 (Given - Provider: Opal Traore, ERWIN) DULoxetine DR (Cymbalta) capsule 60 mg 60 mg, Oral, DAILY, First dose on Wed02/09/23 at 0900, Until Discontinued, Routine 2103 (Given - Provider: Zoila Bhatt RN) 2110 (Given - Provider: Zoila Bhatt RN) gabapentin (Neurontin) capsule 600 mg 600 mg, Oral, NIGHTLY, First dose on Wed02/09/23 at 2100, Until Discontinued, Routine 2102 (Given - Provider: Zoila Bhatt RN) 2110 (Given - Provider: Zoila Bhatt RN) melatonin tablet 6 mg 6 mg, [...] Discontinued, Routine 0942 (Given - Provider: Opal Traore, ERWIN)210 (Given - Provider: Zoila Bhatt RN) 09 (Given - Provider: Opal Traore RN)2111 (Given - Provider: Zoila Bhatt RN) 0859 (Given - Provider: Malia Mcintyre, ERWIN) spironolactone (Aldactone) tablet 25 mg 25 mg, Oral, DAILY, First dose on Wed02/09/23 at 1015, Until Discontinued, DO NOT SPLIT, CRUSH OR OPEN, Routine 0937 (Given - Provider: Opal Traore RN) 09 (Given - Provider: Opal Traore RN) 0858 (Given - Provider: Malia Mcintyre, ERWIN) topiramate (Topamax) tablet 100 mg 100 mg, Oral, NIGHTLY, First dose on Wed02/09/23 at 2100, Until Discontinued, Routine 2102 (Given - Provider: Zoila Bhatt RN) 2110 (Given - Provider: Zoila Bhatt, ERWIN) torsemide (Demadex) tablet 20 mg 20 mg, [...] Heparin UFH Level - Per Protocol, Routine 9060 (Hold - Provider: Zoila Bhatt RN - Reason: See comment - Comment: UFH 1.44)0537 (Restarted - Provider: Zoila Bhatt RN)1124 (Stopped [...] 1944 (Given - Provider: Zoila Bhatt RN) 857 (Given - Provider: Opal Traore RN - [...] Routine documented in this encounter Care Teams Proposal Rep Relationship Specialty Start Date End Date Polo Pearce PA [address] [place] [address] PCP - General Internal Medicine 06/09/21 documented as of this encounter
--- OUTSIDE RECORDS SUMMARY | 2023-10-02 22:46 | XMS_ITS | Encounter Summary ---
Author Organization [facility] Address [facility] [place] [address] Care Team Providers Care Hooking Machine Operator Name Role Phone Polo Pearce Primary Care Provider [phone] Encounter Details Date Type Department Care Team (Late st Contact Info) Description 10/20/2022 Telephone Cardiology at [address] [place] [address] Jaspreet Kinsey MD [facility] [place] [address] Social History Tobacco Use Types Packs/Day Years [...] to update office that she was at [facility] this morning as a follow [...] AM EDT Tech Visit Vascular Lab at [place] [phone] [place] 10/08/2023 9:30 AM EDT Office [place] [phone] MD [facility] [place] [address] 10/21/2023 10:30 AM EDT Appointment Nuclear Medicine at [place] [phone] Mary Reyes NURSING TECHNICIAN [place] [address] 10/21/2023 11:30 AM EDT Appointment [place] [phone] Mary Reyes NURSING TECHNICIAN [facility] [place] [address] 10/21/2023 12:30 PM EDT Appointment [place] [phone] [place] [address] 10/21/2023 1:30 PM EDT Appointment [place] [phone] [place] [address] 10/21/2023 2:30 PM EDT Appointment [place] [phone] [place] [address] 10/26/2023 4:00 PM EDT Office Visit Cardiology at [address] [phone] Jaspreet Kinsey MD [facility] [place] [address] 10/28/2023 9:00 AM EDT Office Visit [place] [address] 10/29/2023 10:00 AM EDT Clinical Support [place] [address] 10/29/2023 10:15 AM EDT Procedure visit [place] [address] 11/01/2023 5:00 PM EDT Office [place] [phone] Selene Browning, PhD [facility] [place] [address] 11/22/2023 4:40 PM EDT Office Visit Cardiology at [address] [phone] Porsha Mcdaniels MD [facility] [place] [address] 12/13/2023 10:00 AM EDT Clinical [place] [phone] [facility] [place] [address] documented as of this encounter Visit Diagnoses Not on filedocumented in this encounter Care Teams Hooking Machine Operator Relationship Specialty Start Date End Date Polo Pearce PA Sb MOTT [address] [place] [id number] PCP - General Internal Medicine 06/09/21 documented as of this encounter
--- OUTSIDE RECORDS SUMMARY | 2023-10-02 22:46 | XMS_ITS | Encounter Summary ---
Author Organization [facility] Address [facility] [place] [address] Care Team Providers Care Manager Diversity Name Role Phone Polo Pearce Primary Care Provider [phone] Reason for Visit * Reason Onset Date Comments Results 08/17/2022 Encounter Details Date Type Department Care Team (Late st Contact Info) Description 08/17/2022 Telephone Cardiology at [address] [address] Jaspreet Kinsey MD [facility] [place] [address] Results Social History Tobacco Use Types Packs/Day [...] AM EDT Tech Visit Vascular Lab at [place] [phone] Channing Escobedo [place] 10/08/2023 9:30 AM EDT Office [place] [address]-[address] MD [facility] DR [place] [address] 10/21/2023 10:30 AM EDT Appointment Nuclear Medicine at [place] [phone] Mary Reyes [facility] [place] [address] 10/21/2023 11:30 AM EDT Appointment [place] [phone] Mary Reyes [facility] [place] [place] [address] 10/21/2023 12:30 PM EDT Appointment [place] [address]-1000 Mary Reyes [facility] [place] [address] 10/21/2023 1:30 PM EDT Appointment Nuclear Medicine at [place] [phone] [place] [address] 10/21/2023 2:30 PM EDT Appointment [place] [address] [place] [address] 10/26/2023 4:00 PM EDT Office Visit Cardiology at [address] [address] Jaspreet Kinsey MD [facility] [place] [address] 10/28/2023 9:00 AM EDT Office [place] [address] 10/29/2023 10:00 AM EDT Clinical Support [place] [address] 10/29/2023 10:15 AM EDT Procedure [place] [address] 11/01/2023 5:00 PM EDT Office [place] [address] Selene Browning, PhD [facility] [place] [address] 11/22/2023 4:40 PM EDT Office Visit Cardiology at [address] [address] Porsha Mcdaniels MD [facility] [place] [address] 12/13/2023 10:00 AM EDT Clinical [place] [phone] [facility] [place]UTRITION [place] [address] documented as of this encounter Visit Diagnoses Not on filedocumented in this encounter Care Teams Manager Diversity Relationship Specialty Start Date End Date Polo Pearce PA [address] [place] [address] PCP - General Internal Medicine 06/09/21 documented as of this encounter
--- OUTSIDE RECORDS SUMMARY | 2023-10-02 22:46 | XMS_ITS | Encounter Summary ---
Author Organization Replaced By [facility] Address [facility] [place] [address] Care Team Providers Care Yoke Presser Name Role Phone Polo Pearce Primary Care Provider [phone] Encounter Details Date Type Department Care Team (Late st Contact Info) Description 08/31/2022 Telephone Cardiology at [address] [address] Carrol La PA [facility] [place] [address] Social History Tobacco Use Types Packs/Day Years [...] PM Referring Provider: Dr. Evans Patient Location: [facility] Brief History Lyubov Roque is a 52 y.o female with PMH of HFpEF, SVT, PE on Eliquis, HLD who presented to the OSH with nausea, diffuse abdominal pain. Developed chest pain that OSH provider reports was LUQ pain under left breast. [place] like a sharp, intermittent squeeze. Patient is [...] was LUQ abdominal pain under left breast. [place] like a sharp, intermittent squeeze that resolved [...] 300's range on prior lab checks in [facility] system. ACS seems unlikely at this time based on my discussion with Dr. Evans as her symptoms seem GI in origin. This may represent a type II NSTEMI in setting of CATIE and acute GI illness. I recommended close follow up with Dr. Kinsey, primary endocrinology specialist who can consider stress testing. In addition, [...] in management. Carrol La PA-C Access Pager [phone] 08/31/2022 documented in this encounter Plan of Treatment Upcoming Encounters Date Type Department Care Team (Late st Contact Info) Description 10/08/2023 8:30 AM EDT Tech Visit Vascular Lab at [place] [phone] Channing Escobedo [place] 10/08/2023 9:30 AM EDT Office [place] [address] MD [facility] [place] [address] 10/21/2023 10:30 AM EDT Appointment Nuclear Medicine at [place] [phone] [place] [address] 10/21/2023 11:30 AM EDT Appointment [place] [phone] Mary Reyes [facility] [place] [address] 10/21/2023 12:30 PM EDT Appointment [place] [phone] Mary Reyes [facility] [place] [address] 10/21/2023 1:30 PM EDT Appointment [place] [address] Mary Reyes APRN [facility] [place] [address] 10/21/2023 2:30 PM EDT Appointment [place] [address] Mary Reyes APRN [facility] [place] [address] 10/26/2023 4:00 PM EDT Office Visit Cardiology at [address] [phone] Jaspreet Kinsey MD [facility] [place] [address] 10/28/2023 9:00 AM EDT Office [place] [address] 10/29/2023 10:00 AM EDT Clinical Support [place] [address] 10/29/2023 10:15 AM EDT Procedure [place] [address] 11/01/2023 5:00 PM EDT Office [place] [address] Selene Browning, PhD [facility] [place] [address] 11/22/2023 4:40 PM EDT Office Visit Cardiology at [address] [phone] Porsha Mcdaniels MD [facility] [place] [address] 12/13/2023 10:00 AM EDT Clinical [place] [address] Lucero Romero, RD [facility] [place] [address] documented as of this encounter Visit Diagnoses Not on filedocumented in this encounter Care Teams Yoke Presser Relationship Specialty Start Date End Date Polo Pearce PA [address] [place] [address] PCP - General Internal Medicine 06/09/21 documented as of this encounter
--- OUTSIDE RECORDS SUMMARY | 2023-10-02 22:47 | XMS_ITS | Encounter Summary ---
Author Organization [facility] [place] [address] Care Team Providers Care Corrections Officer Name Role Phone Polo Pearce Primary Care Provider [phone] Encounter Details Date Type Department Care Team (Late st Contact Info) Description 03/10/2022 Telephone Cardiology at [address] [address] Maegan Mike APRN [facility] [place] [address] Social History Tobacco Use Types Packs/Day Years [...] Referring Provider: Otis Rubi APRN Patient Location: [facility] ED Past Medical History: Type II non-STEMI in October 2021, cardiac cath with normal coronary arteries in October 2019 AVNRT, 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 She has [...] the patient condition. Maegan Mike APRN Pager [phone] 03/10/2022 documented in this encounter Plan of Treatment Upcoming Encounters Date Type Department Care Team (Late st Contact Info) Description 10/08/2023 8:30 AM EDT Tech [place] [phone] Channing Escobedo [place] 10/08/2023 9:30 AM EDT Office [place] [address] MD [facility] [place] [address] 10/21/2023 10:30 AM EDT Appointment [place] [address]-1000 Mary Reyes FRONT DESK ATTENDANT [facility] [place] [address] 10/21/2023 11:30 AM EDT Appointment [place] [address]-1000 Mary Reyes FRONT DESK ATTENDANT [facility] [place] [address] 10/21/2023 12:30 PM EDT Appointment [place] [address] Mary Reyes [place] [address] 10/21/2023 1:30 PM EDT Appointment [place] [address] Mary Reyes [place] [address] 10/21/2023 2:30 PM EDT Appointment [place] [address] [place] [address] 10/26/2023 4:00 PM EDT Office Visit Cardiology at [address] [phone] Jaspreet Kinsey MD [facility] [address] 10/28/2023 9:00 AM EDT Office Visit [place] [address] 10/29/2023 10:00 AM EDT Clinical Support [place] [address] 10/29/2023 10:15 AM EDT Procedure visit [place] [address] 11/01/2023 5:00 PM EDT Office Visit [place] [address] Selene Browning, PhD [facility] [place] [address] 11/22/2023 4:40 PM EDT Office Visit Cardiology at [address] [phone] Porsha Mcdaniels MD [facility] [place] [address] 12/13/2023 10:00 AM EDT Clinical Support [place] [address] [facility] [place] [address] documented as of this encounter Visit Diagnoses Not on filedocumented in this encounter Care Teams Corrections Officer Relationship Specialty Start Date End Date Polo Pearce PA [address] [place] [address] PCP - General Internal Medicine 06/09/21 documented as of this encounter
--- OUTSIDE RECORDS SUMMARY | 2023-10-02 22:47 | XMS_ITS | Encounter Summary ---
Author Organization [facility] [place] [address] Care Team Providers Care Pot Fisher Name Role Phone Polo Pearce Primary Care Provider [phone] Encounter Details Date Type Department Care Team (Late st Contact Info) Description 06/30/2022 Orders Only Cardiology at [address] [address] Jaspreet Kinsey MD [facility] [place] [address] Chest pain, unspecified type Social History Tobacco [...] AM EDT Tech [place] [address]-1000 [place] 10/08/2023 9:30 AM EDT Office Visit [place] [address]-[address] MD [facility] [place] [address] 10/21/2023 10:30 AM EDT Appointment Nuclear Medicine at [place] [phone] [place] [address] 10/21/2023 11:30 AM EDT Appointment [place] [address]-1000 [place] [address] 10/21/2023 12:30 PM EDT Appointment [place] [address]-1000 Mary Reyes [facility] [place] [address] 10/21/2023 1:30 PM EDT Appointment [place] [address]-1000 Mary Reyes [facility] [place] [address] 10/21/2023 2:30 PM EDT Appointment [place] [address]-1000 Mary Reyes [facility] [place] [address] 10/26/2023 4:00 PM EDT Office Visit Cardiology at [address] [address] Jaspreet Kinsey MD [facility] [place] [address] 10/28/2023 9:00 AM EDT Office [place] [address] 10/29/2023 10:00 AM EDT Clinical [place] [address] 10/29/2023 10:15 AM EDT Procedure [place] [address] 11/01/2023 5:00 PM EDT Office Visit Gastroenterology at [place] [phone] Selene Browning, PhD [facility] [place] [address] 11/22/2023 4:40 PM EDT Office Visit Cardiology at [address] [address] Porsha Mcdaniels MD [facility] [place] [address] 12/13/2023 10:00 AM EDT Clinical Support [place] [address]-1000 Lucero Romero, [place] [facility] [place] [address] documented as of this encounter Visit Diagnoses Diagnosis Chest pain, unspecified type documented in this encounter Care Teams Pot Fisher Relationship Specialty Start Date End Date Polo Pearce PA [address] [place] [address] PCP - General Internal Medicine 06/09/21 documented as of this encounter
--- OUTSIDE RECORDS SUMMARY | 2023-10-02 22:47 | XMS_ITS | Encounter Summary ---
Author Organization [facility] Address [facility] [address] Care Team Providers Care Pulp Maker Name Role Phone Polo Pearce Primary Care Provider [phone] Reason for Visit * Reason Onset Date Comments Chest Pain 03/11/2022 Encounter Details Date Type Department Care Team (Late st Contact Info) Description 03/11/2022 Telephone Cardiology at [address] [address] Jaspreet Kinsey MD [facility] [place] [address] Chest Pain Social History Tobacco Use Types [...] UTI, URI symptoms Requesting discharge summary(s) from [facility] from this week. Plan: to determine the indication and goals for this follow up cardiology appointment. From consultation by [facility] with Vianey Miek on 03/10/2021: Patient's chest pain seems to [...] and blood in urine. Her number is [phone] should you have any questions. I looked in the chart and looks like we still need those records documented in this encounter Plan of Treatment Upcoming Encounters Date Type Department Care Team (Late st Contact Info) Description 10/08/2023 8:30 AM EDT Tech [place] [address]-1000 Channing Escobedo [place] 10/08/2023 9:30 AM EDT Office Visit [place] [address]-[address] MD [facility] [place] [address] 10/21/2023 10:30 AM EDT Appointment [place] [address]-1000 Mary Reyes APRN [facility] [place] [address] 10/21/2023 11:30 AM EDT Appointment [place] [address] Mray Reyes [facility] [place] [address] 10/21/2023 12:30 PM EDT Appointment [place] [address] Mary Reyes [facility] [place] [address] 10/21/2023 1:30 PM EDT Appointment [place] [address] Mary Reyes [facility] [place] [address] 10/21/2023 2:30 PM EDT Appointment [place] [address] [place] [address] 10/26/2023 4:00 PM EDT Office Visit Cardiology at [address] [phone] Jaspreet Kinsey MD [facility] [place] [address] 10/28/2023 9:00 AM EDT Office [place] [address] 10/29/2023 10:00 AM EDT Clinical [place] [address] 10/29/2023 10:15 AM EDT Procedure [place] [address] 11/01/2023 5:00 PM EDT Office Visit Gastroenterology at [place] [phone] Selene Browning, PhD [facility] [place] [address] 11/22/2023 4:40 PM EDT Office Visit Cardiology at [place] [phone] Porsha Mcdaniels MD [facility] [place] [address] 12/13/2023 10:00 AM EDT Clinical Support [place] [address]-1000 Lucero Romero, [place] [facility] [place] [address] documented as of this encounter Visit Diagnoses Not on filedocumented in this encounter Care Teams Pulp Maker Relationship Specialty Start Date End Date Polo Pearce PA [address] [place] [address] PCP - General Internal Medicine 06/09/21 documented as of this encounter
--- OUTSIDE RECORDS SUMMARY | 2023-10-02 22:47 | XMS_ITS | Encounter Summary ---
Author Organization [facility] Address [facility] [place] [address] Care Team Providers Care Cloth Cutting Machine Operator Name Role Phone Polo Pearce Primary Care Provider [phone] Encounter Details Date Type Department Care Team (Late st Contact Info) Description 06/24/2022 Telephone Cardiology at [address] [place] [address] Jaspreet Kinsey MD [facility] [place] [address] Social History Tobacco Use Types Packs/Day Years [...] Aide Glass - 06/30/2022 11:54 AM EDT [facility] is faxing over her ER visits [...] Best # to reach her is work [phone] documented in this encounter Plan of Treatment Upcoming Encounters Date Type Department Care Team (Late st Contact Info) Description 10/08/2023 8:30 AM EDT Tech [place] [address]-1000 Channing Escobedo [place] 10/08/2023 9:30 AM EDT Office Visit [place] [address]-[address] MD [facility] [place] [address] 10/21/2023 10:30 AM EDT Appointment [place] [address]-1000 Mary Reyes APRN [facility] [place] [address] 10/21/2023 11:30 AM EDT Appointment [place] [address] [place] [address] 10/21/2023 12:30 PM EDT Appointment [place] [address] [place] [address] 10/21/2023 1:30 PM EDT Appointment [place] [address] [place] [address] 10/21/2023 2:30 PM EDT Appointment [place] [address] [place] [address] 10/26/2023 4:00 PM EDT Office Visit Cardiology at [address] [phone] Jaspreet Kinsey MD [facility] [place] [address] 10/28/2023 9:00 AM EDT Office [place] [address] 10/29/2023 10:00 AM EDT Clinical [place] [address] 10/29/2023 10:15 AM EDT Procedure [place] [address] 11/01/2023 5:00 PM EDT Office Visit Gastroenterology at [place] [phone] Seelne Browning, PhD [facility] [place] [address] 11/22/2023 4:40 PM EDT Office Visit Cardiology at [address] [address] Porsha Mcdaniels MD [facility] [place] [address] 12/13/2023 10:00 AM EDT Clinical Support [place] [address] Lucero Romero, RD [facility] [place] [address] documented as of this encounter Visit Diagnoses Not on filedocumented in this encounter Care Teams Cloth Cutting Machine Operator Relationship Specialty Start Date End Date Polo Pearce PA S[address] [place] [address] PCP - General Internal Medicine 06/09/21 documented as of this encounter
--- OUTSIDE RECORDS SUMMARY | 2023-10-02 22:47 | XMS_ITS | Encounter Summary ---
[place] [address] Care Team Providers Care Manager Applied Name Role Phone Polo Pearce Primary Care Provider [phone] Encounter Details Date Type Department Care Team (Late st Contact Info) Description 03/11/2022 Telephone Cardiology at [address] [phone] Mary Motta, RN Social History Tobacco Use [...] ESTSummary: Pre Procedure Call: SVT Ablation EP KILN CAR REPAIRER COORDINATION CHECKLIST Patient Name: Indira Roque Patient Performing Mediator: Jed Tovar Referring Provider: Sobeida Jimenez Date of Procedure: 03/23/22 Arrival Time/ Case Time: 6:00 am / 7:30 am Check In Location: Snubber Desk 4W Date Patient was Called: 03/11/22 [...] overnight , understands that they will need driver helper on day of discharge Notified pt that Esqueda catheter may be placed on day of procedure depending on type & duration of case. Special Notes/Considerations: Given fequent ED visits to [facility] within the past 4 days, will contact pt next week (03/18) to see howsymptoms are progressing. If still having pain, issues will need to reschedule procedure per Dr. Tovar documented in this encounter Plan of Treatment Upcoming Encounters Date Type Department Care Team (Late st Contact Info) Description 10/08/2023 8:30 AM EDT Tech [place] [address] Channing Escobedo [place] 10/08/2023 9:30 AM EDT Office [place] [address] MD [facility] DR [place]ASCULAR [place] [address] 10/21/2023 10:30 AM EDT Appointment [place] [address] Mary Reyes APRN [facility] [place] [address] 10/21/2023 11:30 AM EDT Appointment [place] [address] Mary Reyes [facility] [place] [address] 10/21/2023 12:30 PM EDT Appointment [place] [address] Mary Reyes [facility] [place] [address] 10/21/2023 1:30 PM EDT Appointment [place] [address] Mary Reyes [facility] [place] [address] 10/21/2023 2:30 PM EDT Appointment [place] [address] Mary Reyes [facility] [place] [address] 10/26/2023 4:00 PM EDT Office Visit Cardiology at [address] [address] Jaspreet Kinsey MD [facility] [place] [address] 10/28/2023 9:00 AM EDT Office [place] [address] 10/29/2023 10:00 AM EDT Clinical Support [place] [address] 10/29/2023 10:15 AM EDT Procedure [place] [address] 11/01/2023 5:00 PM EDT Office [place] [address] Selene Browning, PhD [facility] DR PSYCHIATRY [place] [address] 11/22/2023 4:40 PM EDT Office Visit Cardiology at [address] [address] Porsha Mcdaniels MD [facility] [place] [address] 12/13/2023 10:00 AM EDT Clinical [place] [address] [facility] DR [place] [address] documented as of this encounter Visit Diagnoses Not on filedocumented in this encounter Care Teams Manager Applied Relationship Specialty Start Date End Date Polo Pearce PA [address] [place] [address] PCP - General Internal Medicine 06/09/21 documented as of this encounter
--- OUTSIDE RECORDS SUMMARY | 2023-10-02 22:47 | XMS_ITS | Encounter Summary ---
Author Organization [facility] [place] [address] Care Team Providers Care Winery Worker Name Role Phone Polo Pearce Primary Care Provider [phone] Encounter Details Date Type Department Care Team (Late st Contact Info) Description 12/30/2021 Telephone Cardiology at [address] [address] Ciro Lovell MD [facility] [place] [address] Social History Tobacco Use Types Packs/Day Years [...] 51 year old female with mild PAH ([facility] 06/2021) without e/o parenchymal lung disease or L-sided dysfunction, ? Prior [place], C2 obesity, spastic lung disease and MARYLOU/HS [...] mild restriction, normal diffusion; no volumes done [facility] 2019 clean coronaries [facility] 06/2021 Hemodynamics: [...] Tech Visit Vascular Lab at [place] [phone] Channing Escobedo [place] 10/08/2023 9:30 AM EDT Office Visit [place] [address] MD [facility] [place] [address] 10/21/2023 10:30 AM EDT Appointment [place] [address] Mary Reyes APRN [facility] [address] 10/21/2023 11:30 AM EDT Appointment [place] [address] Mary Reyes APRN [facility] [place] [address] 10/21/2023 12:30 PM EDT Appointment [place] [address] Mary Reyes CONCRETE SWIMMING POOL INSTALLER [facility] [place] [address] 10/21/2023 1:30 PM EDT Appoint[place] [address] [facility] [place] [address] 10/21/2023 2:30 PM EDT Appointment [place] [address] [place] [address] 10/26/2023 4:00 PM EDT Office Visit Cardiology at [address] [address] Jaspreet Kinsey MD [facility] [place] [address] 10/28/2023 9:00 AM EDT Office [place] [address] 10/29/2023 10:00 AM EDT Clinical Support [place] [address] 10/29/2023 10:15 AM EDT Procedure visit [place] [address] 11/01/2023 5:00 PM EDT Office Visit [place] [address] Selene Browning, PhD [facility] [place] [address] 11/22/2023 4:40 PM EDT Office Visit Cardiology at [address] [address] Porsha Mcdaniels MD [facility] [place] [address] 12/13/2023 10:00 AM EDT Clinical Support [place] [address]-[address] [facility] [place] [address] documented as of this encounter Visit Diagnoses Not on filedocumented in this encounter Care Teams Winery Worker Relationship Specialty Start Date End Date Polo Pearce PA [address] [place] [address] PCP - General Internal Medicine 06/09/21 documented as of this encounter
--- OUTSIDE RECORDS SUMMARY | 2023-10-02 22:47 | XMS_ITS | Encounter Summary ---
Author Organization [facility] Address [facility] [place] [address] Care Team Providers Care V Belt Inspector Name Role Phone Polo Pearce Primary Care Provider [phone] Encounter Details Date Type Department Care Team (Late st Contact Info) Description 03/19/2022 Telephone Cardiology at [address] [address] Jed Tovar MD [facility] [place] [address] Social History Tobacco Use Types Packs/Day Years [...] for two weeks. Has been admitted to [facility] ED for this with rule out of aorta dissection. However, pain continues. Dr. Kinsey of [facility] cardiology has just begun diuretic therapy, in [...] AM EDT Tech [place] [address] Ch[place] Escobedo [place] 10/08/2023 9:30 AM EDT Office Visit [place] [address] MD [facility] DR VASCULAR SURGERY [place] [id number] 10/21/2023 10:30 AM EDT Appointment [place] [address] Mary Reyes [facility] [place] [address] 10/21/2023 11:30 AM EDT Appointment [place] [address] Mary Reyes [facility] [place] [address] 10/21/2023 12:30 PM EDT Appointment [place] [address] Mary Reyes [facility] [place] [address] 10/21/2023 1:30 PM EDT Appointment [place] [address] [place] [address] 10/21/2023 2:30 PM EDT Appointment [place] [address] [place] [address] 10/26/2023 4:00 PM EDT Office Visit Cardiology at [address] [address] Jaspreet Kinsey MD [facility] [place] [address] 10/28/2023 9:00 AM EDT Office [place] [address] 10/29/2023 10:00 AM EDT Clinical [place] [address] 10/29/2023 10:15 AM EDT Procedure [place] [address] 11/01/2023 5:00 PM EDT Office Visit [place] [address] Selene Browning, PhD [facility] [place] [address] 11/22/2023 4:40 PM EDT Office Visit Cardiology at [address] [address] Porsha Mcdaniels MD [facility] [place] [address] 12/13/2023 10:00 AM EDT Clinical Support [place] [address] [facility] [place] [address] documented as of this encounter Visit Diagnoses Not on filedocumented in this encounter Care Teams V Belt Inspector Relationship Specialty Start Date End Date Polo Pearce PA [address] [place] [address] PCP - General Internal Medicine 06/09/21 documented as of this encounter
--- OUTSIDE RECORDS SUMMARY | 2023-10-02 22:47 | XMS_ITS | Encounter Summary ---
Author Organization [facility] [place] [address] Care Team Providers Care Master Motorcycle Technician Name Role Phone Polo Pearce Primary Care Provider [phone] Encounter Details Date Type Department Care Team (Late st Contact Info) Description 03/10/2022 External [place] [address] Social History Tobacco Use Types Packs/Day Years [...] Tech [place] [address] [place] 10/08/2023 9:30 AM EDT Office Visit [place] [address] MD [facility] DR VASCULAR [place] [address] 10/21/2023 10:30 AM EDT Appointment [place] [address] Mary Reyes [facility] [place] [address] 10/21/2023 11:30 AM EDT Appointment Nuclear Medicine at [place] [phone] Mary Reyes [facility] [place] [address] 10/21/2023 12:30 PM EDT Appointment Nuclear Medicine at [place] [phone] Mary Reyes [facility] [place] [address] 10/21/2023 1:30 PM EDT Appointment [place] [address] Mary Reeys [facility] [place] [address] 10/21/2023 2:30 PM EDT Appointment [place] [address] Mary Reyes [facility] [place] [address] 10/26/2023 4:00 PM EDT Office Visit Cardiology at [address] [phone] Jaspreet Kinsey MD [facility] [place] [address] 10/28/2023 9:00 AM EDT Office [place] [address] 10/29/2023 10:00 AM EDT Clinical [place] [address] 10/29/2023 10:15 AM EDT [place] [address] 11/01/2023 5:00 PM EDT Office Visit Gastroenterology at [place] [phone] Selene Browning, PhD [facility] [place] [address] 11/22/2023 4:40 PM EDT [place] [address] Porsha Mcdaniels MD [facility] [place] [address] 12/13/2023 10:00 AM EDT Clinical [place] [address] Lucero Romero, [place] [facility] [place] [address] documented as of this encounter Procedures Procedure Name Priority Date/Time Associated Diagnosis Comments ECG SCAN Routine 03/10/2022 documented in this encounter Results * Scan Doc: ECG (03/10/2022) Historical Provider MD FLEMING MGR SCAN EX T ORDR/RSLT documented in this encounter Visit Diagnoses Not on filedocumented in this encounter Care Teams Master Motorcycle Technician Relationship Specialty Start Date End Date Polo Pearce PA [facility] [address] [place] [address] PCP - General Internal Medicine 06/09/21 documented as of this encounter
--- OUTSIDE RECORDS SUMMARY | 2023-10-02 22:47 | XMS_ITS | Encounter Summary ---
Author Organization [facility] Address [facility] [place] [address] Care Team Providers Care Accounts Receivable Manager Name Role Phone Polo Pearce Primary Care Provider [phone] Encounter Details Date Type Department Care Team (Late st Contact Info) Description 09/17/2021 Telephone Cardiology at [address] [place] [address] Jaspreet Kinsey MD [facility] [place] [address] Social History Tobacco Use Types Packs/Day Years [...] Please call on her work phone @ [phone]. Or you may leave a message on her cell phone @ [phone] documented in this encounter Plan of Treatment Upcoming Encounters Date Type Department Care Team (Late st Contact Info) Description 10/08/2023 8:30 AM EDT Tech Visit Vascular [place] [address] Channing Escobedo [place] 10/08/2023 9:30 AM EDT Office [place] [address] MD [facility] [place] [address] 10/21/2023 10:30 AM EDT Appointment Nuclear Medicine at [address] Mary Reyes [facility] [place] [address] 10/21/2023 11:30 AM EDT Appointment Nuclear Medicine at [place] [phone] Mary Reyes [facility] [place] [address] 10/21/2023 12:30 PM EDT Appointment Nuclear Medicine at [place] [phone] Mary Reyes [facility] [place] [address] 10/21/2023 1:30 PM EDT Appointment [place] [address] Mary Reyes [facility] [place] [address] 10/21/2023 2:30 PM EDT Appointment [place] [address] Mary Reyes [facility] [place] [address] 10/26/2023 4:00 PM EDT Office Visit Cardiology at [address] [address] Jaspreet Kinsey MD [facility] [place] [address] 10/28/2023 9:00 AM EDT Office [place] [address] 10/29/2023 10:00 AM EDT Clinical [place] [address] 10/29/2023 10:15 AM EDT Procedure [place] [address] 11/01/2023 5:00 PM EDT Office Visit [place] [address] Selene Browning, PhD [facility] [place] [address] 11/22/2023 4:40 PM EDT Office Visit Cardiology at [address] [phone] Porsha Mcdaniels MD [facility] [place] [address] 12/13/2023 10:00 AM EDT Clinical Support [place] [address] [facility] [place] [place] [address] documented as of this encounter Visit Diagnoses Not on filedocumented in this encounter Care Teams Accounts Receivable Manager Relationship Specialty Start Date End Date Polo Pearce PA [address] [place] [address] PCP - General Internal Medicine 06/09/21 documented as of this encounter
--- OUTSIDE RECORDS SUMMARY | 2023-10-02 22:47 | XMS_ITS | Encounter Summary ---
Author Organization [facility] Address [facility] [place] [address] Care Team Providers Care Final Assembler Boat Name Role Phone Polo Pearce Primary Care Provider [phone] Encounter Details Date Type Department Care Team (Late st Contact Info) Description 09/16/2021 Telephone Cardiology at [address] [place] [address] Jaspreet Kinsey MD [facility] [place] [address] Social History Tobacco Use Types Packs/Day Years [...] so can she have it here at [facility]. She left her work number for calling her back during the day: [phone]. Or you may leave a message on her cell phone: [phone]. documented in this encounter Plan of Treatment Upcoming Encounters Date Type Department Care Team (Late st Contact Info) Description 10/08/2023 8:30 AM EDT Tech [place] [address] [place] 10/08/2023 9:30 AM EDT Office Visit [place] [address] MD [facility] [place] [address] 10/21/2023 10:30 AM EDT Appointment Nuclear Medicine at [place] [phone] Mary Reyes [facility] [place] [address] 10/21/2023 11:30 AM EDT Appointment [place] [address] Mary Reyes [employer] [facility] [place] [address] 10/21/2023 12:30 PM EDT Appointment [place] [address] Mary Reyes TOBAC[employer]IPPER [facility] [place] [address] 10/21/2023 1:30 PM EDT Appointment [place] [address] [place] [address] 10/21/2023 2:30 PM EDT Appointment [place] [address] [place] [address] 10/26/2023 4:00 PM EDT Office Visit Cardiology at [address] [phone] Jaspreet Kinsey MD [facility] [place] [address] 10/28/2023 9:00 AM EDT Office [place] [address] 10/29/2023 10:00 AM EDT Clinical [place] [address] 10/29/2023 10:15 AM EDT Procedure [place] [address] 11/01/2023 5:00 PM EDT Office Visit [place] [address] Selene Browning, PhD [facility] [place] [address] 11/22/2023 4:40 PM EDT Office Visit Cardiology at [address] [address] Porsha Mcdaniels MD [facility] [place] [address] 12/13/2023 10:00 AM EDT Clinical Support [place] [address]-[address] [facility] [place] [address] documented as of this encounter Visit Diagnoses Not on filedocumented in this encounter Care Teams Final Assembler Boat Relationship Specialty Start Date End Date Polo Pearce PA [address] [place] [address] PCP - General Internal Medicine 06/09/21 documented as of this encounter
--- OUTSIDE RECORDS SUMMARY | 2023-10-02 22:47 | XMS_ITS | Encounter Summary ---
Author Organization [facility] Address [facility] [place] [address] Care Team Providers Care Remediation Project Engineer Name Role Phone Polo Pearce Primary Care Provider [phone] Reason for Visit * Reason Comments Congestive Heart Failure Encounter Details Date Type Department Care Team (Late st Contact Info) Description 03/16/2022 3:20 PM EST Office Visit Cardiology at [address] [address] Jaspreet Kinsey MD [facility] [place] [address] Heart failure with preserved ejection fraction, unspecified [...] [facility] but shortly thereafter started [...] Rfl: ??? fluticasone propionate (FLONASE) 50 mcg/actuation [place], Suspension, 1 spray by Each Nare routedaily., [...] ejection fraction 05/2021: subacute, presented to [facility] with RUQ pain, weight gain, and progressive [...] AM EDT Tech Visit Vascular Lab at [place] [phone] Ch[place] Esc[place] 10/08/2023 9:30 AM EDT Office Visit Vascular Surgery at [place] [phone] MD [facility] [place] [address] 10/21/2023 10:30 AM EDT Appointment Nuclear Medicine at [place] [phone] [place] [address] 10/21/2023 11:30 AM EDT Appointment Nuclear Medicine at [place] [phone] Mary Reyes [facility] [place] [address] 10/21/2023 12:30 PM EDT Appointment [place] [address] Mary Reyes [facility] [place] [address] 10/21/2023 1:30 PM EDT Appointment Nuclear [place] [address] Mary Reyes APRN [facility] [place] [address] 10/21/2023 2:30 PM EDT Appointment [place] [address] Mary Reyes APRN [facility] [place] [address] 10/26/2023 4:00 PM EDT Office Visit Cardiology at [address] [phone] Jaspreet Kinsey MD [facility] [place] [address] 10/28/2023 9:00 AM EDT Office [place] [address] 10/29/2023 10:00 AM EDT Clinical [place] [address] 10/29/2023 10:15 AM EDT Procedure [place] [address] 11/01/2023 5:00 PM EDT Office Visit [place] [address] Selene Browning, PhD [facility] [place] [address] 11/22/2023 4:40 PM EDT Office Visit Cardiology at [address] [phone] Porsha Mcdaniels MD [facility] [place] [address] 12/13/2023 10:00 AM EDT Clinical Support [place] [address] Lucero Romero, RD [facility] [place] [place] [address] documented as of this encounter Visit Diagnoses Diagnosis Heart failure with preserved ejection fraction, unspecified HF chronicity SVT (supraventricular tachycardia) Other specified cardiac dysrhythmias documented in this encounter Care Teams Remediation Project Engineer Relationship Specialty Start Date End Date Polo Pearce PA [address] [facility] 1 [place] [address] PCP - General Internal Medicine 06/09/21 documented as of this encounter
--- OUTSIDE RECORDS SUMMARY | 2023-10-02 22:47 | XMS_ITS | Encounter Summary ---
Author Organization [facility] Address [facility] [place] [address] Care Team Providers Care Railroad Car Cleaner Name Role Phone Polo Pearce Primary Care Provider [phone] Encounter Details Date Type Department Care Team (Late st Contact Info) Description 07/07/2022 Telephone Cardiology at [address] [place] [address] Jaspreet Kinsey MD [facility] [place] [address] Social History Tobacco Use Types Packs/Day Years [...] Tech Visit Vascular Lab at [place] [phone] [place] 10/08/2023 9:30 AM EDT Office Visit Vascular Surgery at [place] [phone] MD [facility] [place] [address] 10/21/2023 10:30 AM EDT Appointment [place] [address] [place] [address] 10/21/2023 11:30 AM EDT Appointment Nuclear Medicine at [place] [phone] [place] [address] 10/21/2023 12:30 PM EDT Appointment Nuclear Medicine at [place] [phone] [place] [address] 10/21/2023 1:30 PM EDT Appointment [place] [address] [place] [address] 10/21/2023 2:30 PM EDT Appointment [place] [address] Mary Reyes APRN [facility] [place] [address] 10/26/2023 4:00 PM EDT Office Visit Cardiology at [address] [phone] Jaspreet Kinsey MD [facility] [place] [address] 10/28/2023 9:00 AM EDT Office [place] [address] 10/29/2023 10:00 AM EDT Clinical [place] [address] 10/29/2023 10:15 AM EDT Procedure [place] [address] 11/01/2023 5:00 PM EDT Office Visit [place] [address] Selene Browning, PhD [facility] [place] [address] 11/22/2023 4:40 PM EDT Office Visit Cardiology at [address] [address] Porsha Mcdaniels MD [facility] [place] [address] 12/13/2023 10:00 AM EDT Clinical Support [place] [address]-[address] [facility] [place] [address] documented as of this encounter Visit Diagnoses Not on filedocumented in this encounter Care Teams Railroad Car Cleaner Relationship Specialty Start Date End Date Polo Pearce PA [address] [place] [address] PCP - General Internal Medicine 06/09/21 documented as of this encounter
--- OUTSIDE RECORDS SUMMARY | 2023-10-02 22:47 | XMS_ITS | Encounter Summary ---
Author Organization [facility] Address [facility] [place] [address] Care Team Providers Care Fisher Diver Net Name Role Phone Polo Pearce Primary Care Provider [phone] Encounter Details Date Type Department Care Team (Late st Contact Info) Description 12/31/2021 Orders Only Cardiology at [address] [phone] Umberto Joy PA [facility] [place] [address] SVT (supraventricular tachycardia) Social History Tobacco Use [...] AM EDT Tech [place] [address] Channing Escobedo [place] 10/08/2023 9:30 AM EDT Office Visit [place] [address] MD [facility] [place] [address] 10/21/2023 10:30 AM EDT Appointment Nuclear Medicine at [place] [phone] [place] [address] 10/21/2023 11:30 AM EDT Appointment [place] [phone] [place] [address] 10/21/2023 12:30 PM EDT Appointment [place] [phone] Mary Reyes [facility] [place] [address] 10/21/2023 1:30 PM EDT Appointment [place] [phone] Mary Reyes [facility] [place] [address] 10/21/2023 2:30 PM EDT Appointment [place] [phone] Mary Reyes [facility] [place] [address] 10/26/2023 4:00 PM EDT Office Visit Cardiology at [address] [phone] Jaspreet Kinsey MD [facility] [place] [address] 10/28/2023 9:00 AM EDT Office [place] [address] 10/29/2023 10:00 AM EDT Clinical [place] [address] 10/29/2023 10:15 AM EDT Procedure [place] [address] 11/01/2023 5:00 PM EDT Office Visit Gastroenterology at [place] [phone] Selene Browning, PhD [facility] [place] [address] 11/22/2023 4:40 PM EDT Office Visit Cardiology at [address] [phone] Porsha Mcdaniels MD [facility] [place] [address] 12/13/2023 10:00 AM EDT Clinical Support [place] [phone] Lucero Romero, ALVA [facility] [place] [address] documented as of this encounter Procedures Procedure Name Priority Date/Time Associated Diagnosis Comments ECHOCARDIOGRAM TRANSTHORACIC Routine 12/30/2021 11:29 PM EDT documented in this encounter Results * Echocardiogram Transthoracic (12/30/2021 11:29 PM EDT) Anatomical Region Laterality Modality Cardiac Other 12/30/2021 11:2 9 PM EDT Narrative 01/05/2022 4:39 AM EDT ? Echocardiogram Report Name: ROHAN, LOIDA ?Study Date: 12/30/2021 11:29 PM : 1970 Age: 51 yrs Gender: Female Interpreting Fellow: Ciro Lovell. Interpretation Summary Limited echocardiogram performed by online marketing director fellow. 1. LV appears globally hypokinetic. Visually estimated LVEF 40%. 2. RV is not well visualized, but appears mildly reduced in global systolic function. Recommend comprehensive echo. Procedure Note Willy Gómez MD - 01/05/2022 Echocardiogram Report Name: LOIDA ROQUE Study Date: 12/30/2021 11:29PM : 1970 Age: 51 yrs Gender: Female Interpreting Fellow: Ciro Lovell. Interpretation Summary Limited echocardiogram performed by online marketing director fellow. 1. LV appears globally hypokinetic. Visually estimated LVEF 40%. 2. RV is not well visualized, but appears mildly reduced in globalsystolic function. Recommend comprehensive echo. Unknown ECHO ORDERABLES documented in this encounter Visit Diagnoses Diagnosis SVT (supraventricular tachycardia) Other specified cardiac dysrhythmias documented in this encounter Care Teams Fisher Diver Net Relationship Specialty Start Date End Date Polo Pearce PA [address] [place] [address] PCP - General Internal Medicine 06/09/21 documented as of this encounter
--- OUTSIDE RECORDS SUMMARY | 2023-10-02 22:47 | XMS_ITS | Encounter Summary ---
Author Organization [facility] [place] [address] Care Team Providers Care Animal Shelter Worker Name Role Phone Ramses Polo JOCY Primary Care Provider [phone] Encounter Details Date Type Department Care Team (Late st Contact Info) Description 03/11/2022 Orders Only Cardiology at [address] [phone] Jed Tovar MD [facility] [place] [address] SVT (supraventricular tachycardia) Social History Tobacco Use [...] AM EDT Tech [place] [address] Channing Escobedo [place] 10/08/2023 9:30 AM EDT Office Visit [place] [address] MD [facility] [place] [address] 10/21/2023 10:30 AM EDT Appointment Nuclear Medicine at [place] [phone] [place] [address] 10/21/2023 11:30 AM EDT Appointment [place] [phone] [place] [address] 10/21/2023 12:30 PM EDT Appointment [place] [phone] [place] [address] 10/21/2023 1:30 PM EDT Appointment [place] [phone] [place] [address] 10/21/2023 2:30 PM EDT Appointment [place] [phone] [place] [address] 10/26/2023 4:00 PM EDT Office Visit Cardiology at [address] [phone] Jaspreet Kinsey MD [facility] [place] [address] 10/28/2023 9:00 AM EDT Office Visit [place] [address] 10/29/2023 10:00 AM EDT Clinical Support [place] [address] 10/29/2023 10:15 AM EDT Procedure visit [place] [address] 11/01/2023 5:00 PM EDT Office Visit Gastroenterology at [place] [phone] Selene Browning, PhD [facility] [place] [address] 11/22/2023 4:40 PM EDT Office Visit Cardiology at [address] [phone] Porsha Mcdaniels MD [facility] [place] [address] 12/13/2023 10:00 AM EDT Clinical Support G[place] [phone] Lucero Romero, ALVA [facility] [place] [address] documented as of this encounter Visit Diagnoses Diagnosis SVT (supraventricular tachycardia) Other specified cardiac dysrhythmias documented in this encounter Care Teams Animal Shelter Worker Relationship Specialty Start Date End Date Polo Pearce PA S[address] [place] [address] PCP - General Internal Medicine 06/09/21 documented as of this encounter
--- OUTSIDE RECORDS SUMMARY | 2023-10-02 22:47 | XMS_ITS | Encounter Summary ---
Author Organization [facility] Address [facility] [place] [address] Care Team Providers Care Senior Programmer Name Role Phone Polo Pearce Primary Care Provider [phone] Encounter Details Date Type Department Care Team (Late st Contact Info) Description 08/08/2021 Orders Only Cardiology at [address] [phone] Umberto Joy PA [facility] [place] [address] AVNRT (AV makayla re-entry tachycardia) (Primary Dx); [...] AM EDT Tech [place] [address] Channing Escobedo [place] 10/08/2023 9:30 AM EDT Office Visit [place] [address] MD [facility] [place] [address] 10/21/2023 10:30 AM EDT Appointment Nuclear Medicine at [place] [phone] Mary Reyes [facility] [place] [place] [address] 10/21/2023 11:30 AM EDT Appointment Nuclear Medicine at [address] [place] [address] 10/21/2023 12:30 PM EDT Appointment [place] [address] Mary Reyes [facility] [place] [address] 10/21/2023 1:30 PM EDT Appointment [place] [address] Mary Reyes [facility] [place] [address] 10/21/2023 2:30 PM EDT Appointment [place] [address] Mary Reyes [facility] [place] [place] [address] 10/26/2023 4:00 PM EDT Office Visit Cardiology at [address] [place] [address] Jaspreet Kinsey MD [facility] [place] [address] 10/28/2023 9:00 AM EDT Office Visit [place] [address] 10/29/2023 10:00 AM EDT Clinical Support [place] [address] 10/29/2023 10:15 AM EDT Procedure visit [place] [address] 11/01/2023 5:00 PM EDT Office Visit [place] [phone] Selene Browning, PhD [facility] [place] [address] 11/22/2023 4:40 PM EDT Office Visit Cardiology at [address] [phone] Porsha Mcdaniels MD [facility] [place] [address] 12/13/2023 10:00 AM EDT Clinical Support [place] [phone] [facility] [place] [address] documented as of this encounter Visit Diagnoses Diagnosis AVNRT (AV makayla re-entry tachycardia)- Primary Other specified cardiac dysrhythmias Heart failure with preserved ejection fraction, unspecified HF chronicity SVT (supraventricular tachycardia) Other specified cardiac dysrhythmias documented in this encounter Care Teams Senior Programmer Relationship Specialty Start Date End Date Polo Pearce PA [address] [place] [address] PCP - General Internal Medicine 06/09/21 documented as of this encounter
--- OUTSIDE RECORDS SUMMARY | 2023-10-02 22:47 | XMS_ITS | Encounter Summary ---
Author Organization [facility] Address [facility] [place] [address] Care Team Providers Care Bonding Machine Operator Name Role Phone Polo Pearce Primary Care Provider [phone] Encounter Details Date Type Department Care Team (Late st Contact Info) Description 03/17/2022 Telephone Cardiology at [address] [place] [address] Jaspreet Kinsey MD [facility] [place] [address] Social History Tobacco Use Types Packs/Day Years [...] the new one. Please call her @ [phone]. documented in this encounter Plan of Treatment Upcoming Encounters Date Type Department Care Team (Late st Contact Info) Description 10/08/2023 8:30 AM EDT Tech [place] [phone] Channing Escobedo [place] 10/08/2023 9:30 AM EDT Office [place] [phone] MD [facility] [place] [address] 10/21/2023 10:30 AM EDT Appointment [place] [phone] [place] [address] 10/21/2023 11:30 AM EDT Appointment [place] [phone] Mary Reyes [facility] [place] [address] 10/21/2023 12:30 PM EDT Appointment [place] [phone] [place] [address] 10/21/2023 1:30 PM EDT Appointment [place] [address] Mary Reyes PROMOTION SPECIALIST [facility] [place] [address] 10/21/2023 2:30 PM EDT Appointment [place] [phone] Mary Reyes APRN [facility] [place] [address] 10/26/2023 4:00 PM EDT Office Visit Cardiology at [address] [phone] Jaspreet Kinsey MD [facility] [place] [address] 10/28/2023 9:00 AM EDT Office [place] [address] 10/29/2023 10:00 AM EDT Clinical Support [place] [address] 10/29/2023 10:15 AM EDT Procedure [place] [address] 11/01/2023 5:00 PM EDT Office [place] [phone] Selene Browning, PhD [facility] [place] [address] 11/22/2023 4:40 PM EDT Office Visit Cardiology at [address] [phone] Porsha Mcdaniels MD [facility] [place] [address] 12/13/2023 10:00 AM EDT Clinical [place] [address] Lucero Romero, AL[place] [facility] [place] [address] documented as of this encounter Visit Diagnoses Not on filedocumented in this encounter Care Teams Bonding Machine Operator Relationship Specialty Start Date End Date Polo Pearce PA [address] [place] [address] PCP - General Internal Medicine 06/09/21 documented as of this encounter
--- OUTSIDE RECORDS SUMMARY | 2023-10-02 22:47 | XMS_ITS | Encounter Summary ---
[place] [address] Care Team Providers Care Cloth Winder Machine Operator Name Role Phone Polo Pearce Primary Care Provider [phone] Reason for Visit * Reason Onset Date Comments Follow-up 03/18/2022 Encounter Details Date Type Department Care Team (Late st Contact Info) Description 03/18/2022 Telephone Cardiology at [address] [phone] Mary Motta, RN Follow-up Social History Tobacco [...] Dr. Tovar Pt saw Dr. Kinsey (primary supervisor sunglasses on 03/16) where pt was known to [...] Tech Visit Vascular Lab at [place] [phone] Channing Escobedo [place] 10/08/2023 9:30 AM EDT Office [place] [address] MD [facility] [place] [address] 10/21/2023 10:30 AM EDT Appointment Nuclear Medicine at [place] [phone] Mary Reyes [facility] [place] [address] 10/21/2023 11:30 AM EDT Appointment Nuclear Medicine at [place] [phone] Mary Reyes [facility] [place] [address] 10/21/2023 12:30 PM EDT Appointment [place] [phone] Mary Reyes [facility] [place] [address] 10/21/2023 1:30 PM EDT Appointment [place] [phone] Mary Reyes APRN [facility] [place] [address] 10/21/2023 2:30 PM EDT Appointment [place] [phone] Mary Reyes APRN [facility] [place] [address] 10/26/2023 4:00 PM EDT Office Visit Cardiology at [address] [phone] Jaspreet Kinsey MD [facility] [place] [address] 10/28/2023 9:00 AM EDT Office [place] [address] 10/29/2023 10:00 AM EDT Clinical [place] [address] 10/29/2023 10:15 AM EDT Procedure [place] [address] 11/01/2023 5:00 PM EDT Office [place] [phone] Selene Browning, PhD [facility] [place] [address] 11/22/2023 4:40 PM EDT Office Visit Cardiology at [address] [phone] Porsha Mcdaniels MD [facility] [place] [address] 12/13/2023 10:00 AM EDT Clinical [place] [address] Lucero Romero, ALVA [facility] [place] [address] documented as of this encounter Visit Diagnoses Not on filedocumented in this encounter Care Teams Cloth Winder Machine Operator Relationship Specialty Start Date End Date Polo Pearce PA [address] [place] [address] PCP - General Internal Medicine 06/09/21 documented as of this encounter
--- OUTSIDE RECORDS SUMMARY | 2023-10-02 22:47 | XMS_ITS | Encounter Summary ---
Author Organization [facility] [place] [address] Care Team Providers Care Porter [employer] Name Role Phone Polo Pearce Primary Care Provider [phone] Reason for Visit * Auth/Cert Specialty Diagnoses / Procedures Referred By Jayant harris Referred To Contact Diagnoses NSTEMI (non-ST elevated myocardial infarction) Chest Pain Procedures EMERGENCY IPI Sobeida Jimenez MD [facility] [place] [address] [facility] Referral ID Status Reason Start Date Expiration Date Visits Re quested Visits Authorized [id number] 1 1 Encounter Details Date Type Department Care Team (Latest Contact Info) Description 12/30/2021 10:41 PM EDT - 01/01/2022 2:24 PM EDT Hospital Encounter [place] [address] Sobeida Jimenez MD [facility] [address] [place], [place] [id number] SVT (supraventricular tachycardia); Non-ST elevation HI (NSTEMI); NSTEMI (non-ST elevated myocardial infarction); Acute [...] Loida Madrigal Patient Age: 51 y.o. Language: Barbadian Race: White Ethnicity: Not nor Admit date: 12/30/2021 Discharge date and time: 01/01/2022 Attending Physician: Sobeida Jimenez MD Discharge Physician: Sobeida Jimenez MD ID: Loida Madrigal is a 51 y.o. female w/ PMH of AVNRT, HFpEF, asthma, MARYLOU, obesity, mild PAH([facility] 06/2021) who presents today in transfer for [...] JOCY Franco [address] / [facility] [address] Pending Studies and Lab Data: Official Ankle [...] preserved ejection fraction 05/2021: subacute, presented to [facility] with RUQ pain, weight gain, and progressive dyspnea. Noted to caryr most fluid in abdomen ??? Restless legs ??? Non-ST elevation HI (NSTEMI) ??? Asthma ??? Rhinitis, nonallergic, chronic [...] plavix 600 with plan to transfer to [facility] for furthermanagement. Pertinent prior studies below: ?? [...] Type II Patient initially presented to the [facility] ED on 12/30 with chest pain. Initial [...] 12/31/2021 06:52 AMBP: 109/62 mmHg Patient Location: [facility]^C450^B : 1970 Height: 163 cm Account: [id number] Age: 51 yrs Weight: 100 kg Gender: Female BSA: 2.0 m2 Ordering Physician: SOBEIDA JIMENEZ Referring Physician: KARIN ESPINOSA Performed By: HAIM Harris Reason For Study: Acute on chronic heart failure with preserved ejection fraction Exam Location: [facility]. Interpretation Summary -Left ventricle is of normal [...] the prior study from 06/09/21 ?? Procedure Complete-96027. Satisfactory quality. There is sinus bradycardia. ?? [...] who have questions please contact the health interior plant caretaker that requested your imaging first. Electronically signed by: Olive Barrera MD, [facility] ([phone]), at 01/01/2022 1:56 PM Discharge Conditions/Prognosis: Upon discharge the patientis hemodynamically [...] scheduled with both your PCP and your gridcap machine operator in the outpatient setting within the next [...] appointments: During 8am-5pm Wednesday through Wednesday call [phone] to speak with a nurse in the cardiology clinic All other times call [phone] and ask to speak to the vice president quality improvement concrete bucket unloader. Follow up Appointments: Future Appointments Date Time Provider Department Center 01/21/2022 9:00 AM Jaspreet Kinsey MD [facility] 01/12/2022, Appointment with Mr. Polo Pearce Priming Powder Premix Blender: Dr. Jaspreet Kinsey PCP: JOCY Franco at [phone] Your Inpatient Doctor(s) at [facility]: Sobeida Jimenez MD - Attending physician Dr. Paris Guerra MD - Resident Physician Dr. Yoselin Gómez DO, Resident Physician Dr. Edwin Mcghee MD, Fellow Physician Your Primary Care Provider: JOCY Franco DR [facility] / [facility] [address] For questions regarding issues relating to your hospitalization on the Hospital Medicine Service, please contact your inpatient physician through the [facility] Rn Admit [phone]. Issues after hours and on weekends will be handled by the Hospitalist staff on-call. General Instructions None Future Appointments and Orders Future Appointments and Orders Future Appointments Provider Department Dept Phone 01/21/2022 9:00 AM Jaspreet Kinsey MD Cardiology at [place] Arrive at: [facility] [address] [phone] Inpatient Provider Contact Information: Deven Guerra Jr, MD Internal Medicine, PGY-3 [facility], pager [phone] Discharge References/Attachments: Discharge References/Attachments None documented in [...] scheduled with both your PCP and your gridcap machine operator in the outpatient setting within the next [...] appointments: During 8am-5pm Wednesday through Wednesday call [phone] to speak with a nurse in the cardiology clinic All other times call [phone] and ask to speak to the vice president quality improvement concrete bucket unloader. Follow up Appointments: Future Appointments Date Time Provider Department Center 01/21/2022 9:00 AM Jaspreet Kinsey MD [facility] 01/12/2022, Appointment with Mr. Polo Pearce Priming Powder Premix Blender: Dr. Jaspreet Kinsey PCP: JOCY Franco at [phone] Your Inpatient Doctor(s) at [facility]: Sobeida Jimenez MD - Attending physician Dr. Paris Guerra MD - Resident Physician Dr. Yoselin Gómez DO, Resident Physician Dr. Edwin Mcghee MD, Fellow Physician Your Primary Care Provider: JOCY Franco [address] [facility] [id number] For questions regarding issues relating to your hospitalization on the Hospital Medicine Service, please contact your inpatient physician through the [facility] Rn Admit [phone]. Issues after hours and on weekends will [...] as needed. fluticasone propionate (FLONASE) 50 mcg/actuation [place], Suspension 1 spray by Each Nare [...] 1970 PCP: JOCY Franco PCP phone number: [phone] Date of Admission: 12/30/2021 ( Hospital Day 1 day ) Attending:Sobeida Jimenez MD ID: Loida Madrigal is a 51 y.o. female w/ PMH of AVNRT, HFpEF, asthma, MARYLOU, obesity, mild PAH([facility] 06/2021) who presents today in transfer for evaluation of chest pain. Patient Active Problem List Diagnosis ??? NSTEMI (non-ST elevated myocardial infarction) ??? 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 Obesity ??? Dyslipidemia ??? Obstructive sleep apnea syndrome ??? Insomnia ??? (HFpEF) heart failure with preserved ejection fraction Overview Note: 05/2021: subacute, presented to [facility] with RUQ pain, weight gain, and progressive dyspnea. Noted to caryr most fluid in abdomen ??? Restless legs ??? Non-ST elevation HI (NSTEMI) ??? Asthma ??? Rhinitis, nonallergic, chronic [...] plavix 600 with plan to transfer to [facility] for furthermanagement. Pertinent prior studies below: ?? 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 ??? fluticasone propionate (FLONASE) 50 mcg/actuation [place], Suspension 1 spray by Each Nare [...] ??? heparin (porcine) infusion 1,000 Units/hr (12/30/21 6958) PRN Meds: lidocaine, nitroGLYcerin, sodium chloride 0.9 [...] CP and palpitations LH 2019: normal cors [facility] 2021: mild PHTN, mPA 24, CI 1.57 [...] Pt up to toilet. Diet order placed, cardiac/[facility] diet. PRN ibuprofen ordered and given to [...] COVID test: Lab Results Component Value Date [id number] Not Detected 06/13/2021 Present on Admission: ??? 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 Current Living Arrangements: home/apartment/condo. Accessibility Concerns:no concerns. Current DME: none [address] [facility] [address] Social & Family Supports: Extended Emergency Contact [...] private car when medically ready. Registered Nurse Cycle Specialist / Molding Utility Worker will continue to follow patient???s progress and remain available if situation changes for coordination of care, psychosocial support and/or discharge planning. Office of Care Management documented in this encounter Plan of Treatment Upcoming Encounters Date Type Department Care Team (Late st Contact Info) Description 10/08/2023 8:30 AM EDT Tech [place] [phone] [place] 10/08/2023 9:30 AM EDT Office [place] [phone] MD [facility] [place] [address] 10/21/2023 10:30 AM EDT Appointment Nuclear Medicine at [place] [phone] Mary [place] [address] 10/21/2023 11:30 AM EDT Appointment Nuclear Medicine at [address] [place] [address] 10/21/2023 12:30 PM EDT Appointment [place] [phone] [address] [place] [address] 10/21/2023 1:30 PM EDT Appointment [place] [address] Mary [place]yes [place] [address] 10/21/2023 2:30 PM EDT Appointment [place] [address] Mary [place]yes [place] [address] 10/26/2023 4:00 PM EDT Office Visit Cardiology at [address] [phone] Jaspreet Kinsey MD [facility] [place] [address] 10/28/2023 9:00 AM EDT Office [place] [address] 10/29/2023 10:00 AM EDT Clinical [place] [address] 10/29/2023 10:15 AM EDT Procedure [place] [address] 11/01/2023 5:00 PM EDT Office [place] [phone] Selene Browning, PhD [facility] [place] [address] 11/22/2023 4:40 PM EDT Office Visit Cardiology at [address] [address] Porsha Mcdaniels MD [facility] [place] [address] 12/13/2023 10:00 AM EDT Clinical [place] [phone] [facility] [place] [address] documented as of this encounter Procedures Procedure [...] who have questions please contact the health interior plant caretaker that requested your imaging first. ? Electronically signed by: Olive Barrera MD, [facility] ([phone]), at 01/01/2022 1:56 PM Narrative 01/01/2022 1:56 PM EDT EXAMINATION: XR [...] patients who have questions please contactthe health interior plant caretaker that requested your imaging first. Sobeida Jimenez MD IMG DX ORDERABLES * Magnesium (01/01/2022 8:56 AM EDT) Magnesium 0.96 0.69 - 1.07 mmol/L [facility] Blood 01/01/2022 8:56 AM EDT 01/01/2022 9:19 AM EDT Narrative Resulting Agency Comment Spec In Lab Sobeida Jimenez MD CHEMISTRY ORDERABLES Performing Organization Address City/[facility]/ZIP [place] [address] * Differential, Automated (01/01/2022 4:15 AM EDT) Neutrophils % 59.8 % [facility] Neutr Abs (ANC) 3.72 1.70 - 6.10 x10(3)/[facility] Lymphocytes % 26.0 % [facility] Lymphocytes Abs 1.6 0.9 - 3.2 x10(3)/[facility] Monocytes % 8.7 % [facility] Monocyte Abs 0.5 0.3 - 0.9 x10(3)/[facility] Eosinophils % 4.5 % [facility] Eosinophils Abs 0.3 0.0 - 0.4 x10(3)/[facility] Basophils % 0.8 % [facility] Basophils Abs 0.0 0.0 - 0.1 x10(3)/[facility] Immature Gran % 0.20 % [facility] Comment: Immature granulocytes(IG's)percentage and absolute count will include metamyelocytes, myelocytes, and promyelocytes. Blood smears from CBCs yielding IG's will be scanned manually for concordance. If this scan disagrees with the automated IG or if promyelocytes are noted, a manual differential will be performed. Hsonda Gran Abs 0.01 0.00 - 0.04 x10(3)/[facility] Blood 01/01/2022 4:15 AM EDT 01/01/2022 4:23 AM EDT Narrative Resulting Agency Comment Spec In Lab Lorna Haider MD HEMATOLOGY ORDERABL ES Performing Organization Address City/[facility]/ZIP Co de Phone Number [facility] [place] [address] * Hemogram (01/01/2022 4:15 AM EDT) Pathologist [facility] WBC 6.2 4.0 - 9.5 x10(3)/[facility] RBC 4.43 4.00 - 5.21 x10(6)/[facility] Hemoglobin 13.9 11.7 - 15.5 g/dL [facility] Hematocrit 41.3 35.7 - 45.8 % [facility] MCV 93.2 82.6 - 94.4 fL [facility] MCH 31.4 27.1 - 32.0 pg [facility] MCHC 33.7 31.7 - 35.0 g/dL [facility] Platelets 204 145 - 357 x10(3)/[facility]OR[facility] RDWSD 43.4 37.0 - 46.0 [facility] LABOR[facility]ORY RDWCV 12.6 11.5 - 14.1 % [facility] MPV 10.6 7.6 - 12.9 [facility] nRBC % Auto 0.0 % [facility] nRBC Abs Auto 0.000 0.000 - 0.000 x10(3)/[facility] Blood 01/01/2022 4:15 AM EDT 01/01/2022 4:23 AM EDT Narrative Resulting Agency Comment Spec In Lab Lorna Haider MD HEMATOLOGY ORDERABL ES [facility] [place] [address] * (ABNORMAL) Basic Metabolic Panel (non-fasting) (01/01/2022 4:15 AM EDT) Pathologist [facility] Glucose Lvl 103 65 - 199 mg/dL [...] MD CHEMISTRY ORDERABLES [facility] [place] [address] * ECHO COMPLETE (12/31/2021 8:02 AM EDT) Anatomical Region Laterality Modality Cardiac Other 12/31/2021 6:52 AM EDT Narrative 12/31/2021 8:30 AM EDT ? Echocardiogram Report Name: LOIDA MADRIGAL ? Study Date: 12/31/2021 06:52 AMBP: 109/62 mmHg ? Patient Location: [facility]^C450^B : 1970 ? Height: 163 cm ? Account: [id number] Age: 51 yrs ? Weight: 100 kg Gender: Female ?BSA: 2.0 m2 Ordering Physician: SOBEIDA JIMENEZ Referring Physician: KARIN ESPINOSA Performed By: HAIM Harris Reason For Study: Acute on chronic heart failure with preserved ejection fraction Exam Location: [facility]. Interpretation Summary -Left ventricle is of normal [...] to the prior study from 06/09/21 Procedure Complete-[id number]. Satisfactory quality. There is sinus bradycardia. Left [...] Chambers MD - 12/31/2021 Echocardiogram Report Name: LOIDA MADRIGAL Study Date: 206:52 AMBP: 109/62 mmHg Patient Location:[facility]^C450^B : 1970 Height: 163 cm Account: [id number] Age: 51 yrs Weight: 100 kg Gender: Female BSA: 2.0 m2 Ordering Physician: SOBEIDA JIMENEZ Referring Physician: KARIN ESPINOSA Performed By: HAIM Harris Reason For Study: Acute on chronic heart failure with preserved ejectionfraction Exam Location: [facility]. Interpretation Summary -Left ventricle is of normal [...] to the prior study from 06/09/21 Procedure Complete-86615. Satisfactory quality. There is sinus bradycardia. Left [...] MD HEMATOLOGY ORDERABLE S Performing Organization Address [facility] de Phone Number [facility] [place] [address] * T4, free (12/31/2021 7:01 AM EDT) Free T4 1.16 0.93 - 1.70 ng/dL [facility] Comment: Reference Interval (ng/dL): Females: ??First Trimester: 0.97-1.68 ??Second Trimester: 0.77-1.51 ??Third Trimester: 0.77-1.49 Blood 12/31/2021 7:01 AM EDT 12/31/2021 7:11 AM EDT Narrative Resulting Agency Comment Spec In Lab Sobeida Jimenez MD CHEMISTRY ORDERABLES Performing Organization Address [facility] de Phone Number [facility] [place] [address] * (ABNORMAL) Troponin (12/31/2021 3:28 AM EDT) Pathologist [facility] Troponin-T HS 21(H) <=14 ng/L [facility] Comment: This patient's troponin T [...] troponin value can be found in the [facility] Laboratory Test Catalog Troponin - [facility] Laboratory Test Catalog Reference: Fourth [place] Definition of Myocardial Infarction. Journal of the [place] College [employer]iology 2018;72:0468-0222 Blood 12/31/2021 3:28 AM EDT 12/31/2021 4:31 AM EDT Narrative Resulting Agency Comment Spec In Lab Sobeida Jimenez MD CHEMISTRY ORDERABLES Performing Organization Address City/State/[facility] Co de Phone Number [facility] [place] [phone] * EKG 12 Lead (12/31/2021 3:23 AM EDT) Ventricular rate 44 BPM MUSE SYSTEM Atrial Rate 44 BPM MUSE SYSTEM P-R Interval 190 ms MUSE SYSTEM QRS Duration 86 ms MUSE SYSTEM Q-T Interval 562 ms MUSE SYSTEM QTC Calculated (Bezet) 480 ms MUSE SYSTEM Calculated P [place] 32 degrees MUSE SYSTEM Calculated R [place] 58 degrees MUSE SYSTEM Calculated T [place] 24 degrees MUSE SYSTEM INTERPRETATION Marked sinus bradycardia Possible Lateral infarct (cited on or before 30-DEC-2021) Nonspecific ST and T wave abnormality Prolonged QT Abnormal ECG When compared with ECG of 30-DEC-2021 22:45, No significant change was found I personally reviewed the tracing and edited the fellows interpretation Confirmed by fellow MD Rosalinda, Alejandro ([id number]) on 12/31/2021 9:13:46 PM Confirmed by MD Angelo Danette ([id number]) on 01/01/2022 7:24:12 AM MUSE SYSTEM 12/31/2021 3:23 AM EDT 01/01/2022 7:24 AM EDT Sobeida Jimenez MD ECG ORDERABLES MUSE SYSTEM * Heparin (unfractionated) Level (12/31/2021 12:20 AM EDT) Heparin UFH Level 0.40 IU/mL [facility] [...] MD HEMATOLOGY ORDERABLE S Performing Organization Address City/[facility] Co de Phone Number [facility] [place] [address] * Differential, Automated (12/31/2021 12:20 AM EDT) Neutrophils % 57.0 % [facility] Neutr Abs (ANC) 4.48 1.70 - 6.10 x10(3)/[facility] Lymphocytes % 32.4 % [facility] Lymphocytes Abs 2.6 0.9 - 3.2 x10(3)/[facility] Monocytes % 6.4 % [facility] Monocyte Abs 0.5 0.3 - 0.9 x10(3)/[facility] Eosinophils % 3.3 % [facility] Eosinophils Abs 0.3 0.0 - 0.4 x10(3)/[facility] Basophils % 0.5 % [facility] Basophils Abs 0.0 0.0 - 0.1 x10(3)/[facility] Immature Gran % 0.40 % [facility] Comment: Immature granulocytes(IG's)percentage and absolute count will include metamyelocytes, myelocytes, and promyelocytes. Blood smears from CBCs yielding IG's will be scanned manually for concordance. If this scan disagrees with the automated IG or if promyelocytes are noted, a manual differential will be performed. Shonda Gran Abs 0.03 0.00 - 0.04 x10(3)/[facility] Blood 12/31/2021 12:2 0 AM EDT 12/31/2021 12:41 AM EDT Narrative Resulting Agency Comment Spec In Lab Lorna Haider MD HEMATOLOGY ORDERABL ES [facility] [place] [address] * Hemogram (12/31/2021 12:20 AM EDT) WBC 7.9 4.0 - 9.5 x10(3)/[facility] RBC 4.24 4.00 - 5.21 x10(6)/[facility] Hemoglobin 13.3 11.7 - 15.5 g/dL [facility] Hematocrit 39.1 35.7 - 45.8 % [facility] MCV 92.2 82.6 - 94.4 fL [facility] MCH 31.4 27.1 - 32.0 pg [facility] MCHC 34.0 31.7 - 35.0 g/dL [facility] Platelets 209 145 - 357 x10(3)/[facility] RDWSD 43.2 37.0 - 46.0 fL [facility]ERBS [...] MD HEMATOLOGY ORDERABL ES Performing Organization Address City/State/[facility] Co de Phone Number [facility] [place] [address] * (ABNORMAL) Troponin (12/31/2021 12:20 AM EDT) Troponin-T HS 19(H) <=14 ng/L [facility] Comment: This patient's troponin T [...] troponin value can be found in the [facility] Laboratory Test Catalog Troponin - [facility] Laboratory Test Catalog Reference: Fourth [place] Definition of Myocardial Infarction. Journal of the [place] College [employer] Cardiology 2018;72:3454-6255 Blood 12/31/2021 12:2 0 AM EDT 12/31/2021 12:41 AM EDT Narrative Resulting Agency Comment Spec In Lab Sobeida Jimenez MD CHEMISTRY ORDERABLES [facility] [place] [address] * (ABNORMAL) Hemoglobin A1c (12/31/2021 12:20 AM [...] 1, S67-74 Est Avg Gluc 118 mg/dL [facility] Comment: [...] into estimated average glucose values. ??Diabetes Care 2008:31(8):7295-9312. Blood 12/31/2021 12:2 0 AM EDT 12/31/2021 12:42 AM EDT Narrative Resulting Agency Comment Spec In Lab Sobeida Jimenez MD CHEMISTRY ORDERABLES [facility] [place] [address] * Lipid Panel (Reflex Direct LDL) (12/31/2021 12:20 AM EDT) Chol, Total 122 mg/dL [facility] Comment: Lower Risk: <200 mg/dL Average Risk: 200-239 mg/dL Higher Risk: >sn=326 mg/dL Triglycerides 111 mg/dL [facility] Comment: Average Risk/Lower Risk: <150 mg/dL Borderline High Risk: 150-199 mg/dL High Risk: 200-499 mg/dL Very High Risk: >bb=368 mg/dL HDL 35 mg/dL [facility] Comment: Males: ?? Higher Risk: <40 mg/dL Females: ?? Higher Risk: <50 mg/dL LDL Cholesterol 65 mg/dL [facility] Comment: Lowest Risk: <100 mg/dL Lower Risk: 100-129 mg/dL Borderline High Risk: 130-159 mg/dL High Risk: 160-189 mg/dL Very High Risk: >sk=377 mg/dL Chol/HDL Ratio 3.5 ratio [facility] Lipid Interpretation See Note [facility] Comment: Lipid management should be guided by a patient? s ASCVD risk, goals and preferences. ACC/AHA Guidelines recommend high intensity statin if clinical ASCVD or LDL greater than or equal to 190 mg/dL. http://Night Upurl.com/JGE-AVZ-Jnpzwrpjc Adults aged 40-75 with LDL 70-189 mg/dL should have their 10 year ASCVD risk estimated with the ACC/AHA ASCVD risk slip cover estimator http://tools.acc.org/NYPVP-Oepe-Cjlzoqcbx/ Statin should be discussed if risk greater [...] Jimenez MD CHEMISTRY ORDERABLES Performing Organization Address [facility]/ZIP Co de Phone Number [facility] [place] [address] * (ABNORMAL) APTT (12/31/2021 12:20 AM EDT) [...] MD HEMATOLOGY ORDERABLE S Performing Organization Address City/[facility]/ZIP Co de Phone Number [facility] [place] [address] * Prothrombin Time (12/31/2021 12:20 AM EDT) PT 12.5 9.4 - 12.5 sec [facility] INR 1.1 [facility] [...] MD HEMATOLOGY ORDERABLE S Performing Organization Address [facility] Co de Phone Number [facility] [place] [address] * (ABNORMAL) pro-Brain Natriuretic Peptide (12/31/2021 12:20 AM EDT) ProBNP 2,515(H) <=124 pg/mL [facility] Blood 12/31/2021 12:2 0 AM EDT 12/31/2021 12:41 AM EDT Narrative Resulting Agency Comment Spec In Lab Sobeida Jimenez MD CHEMISTRY ORDERABLES Performing Organization Address [facility] Co de Phone Number [facility] [place] [address] * (ABNORMAL) TSH (12/31/2021 12:20 AM EDT) TSH 7.36(H) 0.27 - 4.20 mcIU/mL [facility] Comment: Reference Interval (mcIU/mL): Females: ??First Trimester: 0.23-3.88 ??Second Trimester: 0.22-3.90 ??Third Trimester: 0.44-4.66 Blood 12/31/2021 12:2 0 AM EDT 12/31/2021 12:41 AM EDT Narrative Resulting Agency Comment Spec In Lab Sobeida Jimenez MD CHEMISTRY ORDERABLES Performing Organization Address [facility] Co de Phone Number [facility] [place] [address] * Phosphorus (12/31/2021 12:20 AM EDT) Phosphorus 3.5 2.5 - 4.5 mg/dL [facility] Blood 12/31/2021 12:2 0 AM EDT 12/31/2021 12:41 AM EDT Narrative Resulting Agency Comment Spec In Lab Sobeida Jimenez MD CHEMISTRY ORDERABLES Performing Organization Address [facility]/ZIP Co de Phone Number [facility] [place] [address] * Magnesium (12/31/2021 12:20 AM EDT) Pathologist [facility] Magnesium 0.87 0.69 - 1.07 mmol/L [facility] Blood 12/31/2021 12:2 0 AM EDT 12/31/2021 12:41 AM EDT Narrative Resulting Agency Comment Spec In Lab Sobeida Jimenez MD CHEMISTRY ORDERABLES Performing Organization Address City/[facility]/ZIP Co de Phone Number [facility] [place] [address] * (ABNORMAL) Basic Metabolic Panel (non-fasting) (12/31/2021 12:20 AM EDT) Pathologist [facility] Glucose Lvl 88 65 - 199 mg/dL [...] Jimenez MD CHEMISTRY ORDERABLES Performing Organization Address City/State/[facility] Co de Phone Number [facility] [place] [address] documented in this encounter Visit Diagnoses Diagnosis SVT (supraventricular tachycardia) Other specified cardiac dysrhythmias Non-ST elevation HI (NSTEMI) Acute myocardial infarction, unspecified site, episode [...] or HFrEF) with or without diabetes? No 09 (Given - Provider: Angelina Oquendo RN) 09 [...] Intravenous, 2 TIMES DAILY, First dose on Tu12/30/21 at 2345, Until Discontinued, Routine 0219 (Given - Provider: Patricia Jacobs RN)0940 (Given - Provider: Angelina Oquendo RN)2099 (Given - Provider: Patricia Jacobs RN) 0906 (Given - Provider: Angelina Oquendo RN) sodium chloride 0.9 % (flush) (BD PosiFlush Normal Saline 0.9) flush 5 mL (CANCELED) 5 mL, Intravenous, 2 TIMES DAILY, First dose on Wed12/30/21 at 2345, Until Discontinued, Routine 021 (Given - Provider: Patricia Jacobs RN) topiramate [...] Heparin UFH Level - Per Protocol, Routine 2318 (New Bag - Provider: Patricia Jacobs RN) 0725 (Stopped - Provider: Angelina Oquendo RN) PRN [...] Routine documented in this encounter Care Teams [employer] Relationship Specialty Start Date End Date Polo Pearce PA [address] [place] [address] PCP - General Internal Medicine 06/09/21 documented as of this encounter
--- OUTSIDE RECORDS SUMMARY | 2023-10-02 22:47 | XMS_ITS | Encounter Summary ---
Author Organization [facility] [place] [address] Care Team Providers Care Selling Underwriter Name Role Phone Polo Pearce Primary Care Provider [phone] Encounter Details Date Type Department Care Team (Late st Contact Info) Description 12/30/2021 External Results [place] [address] Social History Tobacco Use Types Packs/Day Years [...] AM EDT Tech [place] [address] Channing Escobedo [place] 10/08/2023 9:30 AM EDT Office [place] [phone] MD [facility] [place] [address] 10/21/2023 10:30 AM EDT Appointment [place] [address] Mary Reyes [facility] [place] [address] 10/21/2023 11:30 AM EDT Appointment [place] [address] Mary Reyes [facility] [place] [place] [address] 10/21/2023 12:30 PM EDT Appointment [place] [address] Mary Reyes [facility] [place] [place] [address] 10/21/2023 1:30 PM EDT Appointment [place] [address] Mary Reyes [facility] [place] [place] [address] 10/21/2023 2:30 PM EDT Appointment [place] [address] Mary Reyes [facility] [place] [place] [address] 10/26/2023 4:00 PM EDT Office Visit Cardiology at [address] [phone] Jaspreet Kinsey MD [facility] [place] [address] 10/28/2023 9:00 AM EDT Office [place] [address] 10/29/2023 10:00 AM EDT Clinical [place] [address] 10/29/2023 10:15 AM EDT Procedure [place] [address] 11/01/2023 5:00 PM EDT Office [place] [address] Selene Browning, PhD [facility] [place] [address] 11/22/2023 4:40 PM EDT Office [place] [address] Porsha Mcdaniels MD [facility] [place] [address] 12/13/2023 10:00 AM EDT Clinical [place] [address] Lucero Romero, ALVA [facility] [place] [address] documented as of this encounter Procedures Procedure Name Priority Date/Time Associated Diagnosis Comments ECG SCAN Routine 12/30/2021 documented in this encounter Results * Scan Doc: ECG (12/30/2021) Historical Provider MD FLEMING MGR SCAN EX T ORDR/RSLT documented in this encounter Visit Diagnoses Not on filedocumented in this encounter Care Teams Selling Underwriter Relationship Specialty Start Date End Date Polo Pearce PA [address] [place] [address] PCP - General Internal Medicine 06/09/21 documented as of this encounter
--- OUTSIDE RECORDS SUMMARY | 2023-10-02 22:47 | XMS_ITS | Encounter Summary ---
Author Organization [facility] Address [facility] [place] [address] Care Team Providers Care Final Assembly Worker Name Role Phone Polo Pearce Primary Care Provider [phone] Reason for Visit * Reason Onset Date Comments Ascites 07/28/2022 Chest Pain 07/28/2022 Encounter Details Date Type Department Care Team (Late st Contact Info) Description 07/28/2022 Telephone Cardiology at [address] [address] Jaspreet Kinsey MD [facility] [place] [address] Ascites; Chest Pain Social History Tobacco Use [...] 10:10 AM EDT Indira is inpatient at [facility] today. Nurse Madison indicates she is alert [...] Creat 1.3 Plan: will remain inpatient at [facility] Outpatient CT heart planned on July 30 - cancel and reschedule (notified [facility] card lab [place]) documented in this encounter Plan of Treatment Upcoming Encounters Date Type Department Care Team (Late st Contact Info) Description 10/08/2023 8:30 AM EDT Tech Visit Vascular Lab at [place] [phone] Channing Escobedo [place] 10/08/2023 9:30 AM EDT Office Visit Vascular Surgery at [place] [phone] MD [facility] [place] [address] 10/21/2023 10:30 AM EDT Appointment [place] [address] [address] Reyes [facility] [place] [address] 10/21/2023 11:30 AM EDT Appointment Nuclear Medicine at [place] [phone] Mary Reyes [facility] [place] [address] 10/21/2023 12:30 PM EDT Appointment [place] [phone] [address] [facility] [place] [address] 10/21/2023 1:30 PM EDT Appointment [place] [phone] Mary Reyes PURCHASING EXPEDITOR [facility] [place] [address] 10/21/2023 2:30 PM EDT Appointment [place] [phone] Mary Reyes PURCHASING EXPEDITOR [facility] [place] [address] 10/26/2023 4:00 PM EDT Office Visit Cardiology at [address] [phone] Jaspreet Kinsey MD [facility] [place] [address] 10/28/2023 9:00 AM EDT Office Visit [place] [address] 10/29/2023 10:00 AM EDT Clinical Support [place] [address] 10/29/2023 10:15 AM EDT Procedure visit [place] [address] 11/01/2023 5:00 PM EDT Office Visit [place] [phone] Selene Browning, PhD [facility] [place] [address] 11/22/2023 4:40 PM EDT Office Visit Cardiology at [address] [phone] Porsha Mcdaniels MD [facility] [place] [address] 12/13/2023 10:00 AM EDT Clinical Support [place] [address] Lucero Romero, [place] [facility] [place] [address] documented as of this encounter Visit Diagnoses Not on filedocumented in this encounter Care Teams Final Assembly Worker Relationship Specialty Start Date End Date Polo Pearce PA [address] [place] [address] PCP - General Internal Medicine 06/09/21 documented as of this encounter
--- OUTSIDE RECORDS SUMMARY | 2023-10-02 22:47 | XMS_ITS | Encounter Summary ---
Author Organization [facility] Address [facility] [place] [address] Care Team Providers Care Chief Reservoir Engineering Name Role Phone Polo Pearce Primary Care Provider [phone] Encounter Details Date Type Department Care Team (Late st Contact Info) Description 04/16/2022 Refill Cardiology at [address] [place] [address] Jaspreet Kinsey MD [facility] [place] [address] Social History Tobacco Use Types Packs/Day Years [...] ??Order for CCTA placed by Dr. Kinsey. [facility] will contact you for scheduling. * Telephone [...] wants her tocontinue on this. Phone # is [phone] documented in this encounter Plan of Treatment Upcoming Encounters Date Type Department Care Team (Late st Contact Info) Description 10/08/2023 8:30 AM EDT Tech [place] [phone] [place] 10/08/2023 9:30 AM EDT Office Visit [place] [phone] MD [facility] [place] [address] 10/21/2023 10:30 AM EDT Appointment [place] [phone] Mary Reyes APRN [facility] [place] [address] 10/21/2023 11:30 AM EDT Appointment [place] [phone] Mary Reyes CLAMP REMOVER [facility] [place] [address] 10/21/2023 12:30 PM EDT Appointment Nuclear [place] [address] Mary Reyes CLAMP REMOVER [facility] [place] [address] 10/21/2023 1:30 PM EDT Appointment [place] [phone] [address] Reyes APRN [facility] [place] [address] 10/21/2023 2:30 PM EDT Appointment [place] [phone] [place] [address] 10/26/2023 4:00 PM EDT Office Visit Cardiology at [address] [phone] Jaspreet Kinsey MD [facility] [address] 10/28/2023 9:00 AM EDT Office [place] [address] 10/29/2023 10:00 AM EDT Clinical [place] [address] 10/29/2023 10:15 AM EDT Procedure [place] [address] 11/01/2023 5:00 PM EDT Office Visit [place] [phone] Selene Browning, PhD [facility] [place] [address] 11/22/2023 4:40 PM EDT Office Visit Cardiology at [address] [phone] Porsha Mcdaniels MD [facility] [address] 12/13/2023 10:00 AM EDT Clinical Support [place] [phone] [facility] [place] [address] documented as of this encounter Visit Diagnoses Diagnosis Chronic heart failure with preserved ejection fraction Chest pain, unspecified type documented in this encounter Care Teams Chief Reservoir Engineering Relationship Specialty Start Date End Date Polo Pearce PA [address] [place] [address] PCP - General Internal Medicine 06/09/21 documented as of this encounter
--- OUTSIDE RECORDS SUMMARY | 2023-10-02 22:47 | XMS_ITS | Encounter Summary ---
Author Organization [facility] [place] [address] Care Team Providers Care Towboat Operator Name Role Phone Polo Pearce Primary Care Provider [phone] Reason for Visit * Reason Onset Date Comments Chest Pain 07/27/2022 Shortness of Breath 07/27/2022 Fatigue 07/27/2022 Encounter Details Date Type Department Care Team (Late st Contact Info) Description 07/27/2022 Telephone Cardiology at [address] [phone] Jaspreet Kinsey MD [facility] [place] [address] Chest Pain; Shortness of Breath; Fatigue Social [...] EDT Florencia has been admitted inpatient at [facility]. * Telephone Encounter - Patricia Glasspeter Melgar - 07/27/2022 3:35 PM EDT Patient called and said she is now in [facility]. She said they did a CT scan and found blood clots on her lungs. She also has a fluid buildup. Please call her @ [phone] * Telephone Encounter - Nilda Mayes RN [...] for assessment. Plan: Florencia will go to [facility] for evaluation. documented in this encounter Plan of Treatment Upcoming Encounters Date Type Department Care Team (Late st Contact Info) Description 10/08/2023 8:30 AM EDT Tech [place] [phone] [place] 10/08/2023 9:30 AM EDT Office Visit [place] [phone] MD [facility] [place] [address] 10/21/2023 10:30 AM EDT Appointment [place] [phone] Mary Reyes APRN [facility] [place] [address] 10/21/2023 11:30 AM EDT Appointment [place] [address] Mary Reyes [facility] [place] [address] 10/21/2023 12:30 PM EDT Appointment [place] [phone] Mary Reyes [facility] [place] [address] 10/21/2023 1:30 PM EDT Appointment [place] [address] Mary Reyes [facility] [place] [address] 10/21/2023 2:30 PM EDT Appointment [place] [address] [place] [address] 10/26/2023 4:00 PM EDT Office Visit Cardiology at [address] [address] Jaspreet Kinsey MD [facility] [place] [address] 10/28/2023 9:00 AM EDT Office [place] [address] 10/29/2023 10:00 AM EDT Clinical [place] [address] 10/29/2023 10:15 AM EDT Procedure [place] [address] 11/01/2023 5:00 PM EDT Office Visit Gastroenterology at [place] [phone] Selene Browning, PhD [facility] [place] [address] 11/22/2023 4:40 PM EDT Office Visit Cardiology at [address] [phone] Porsha Mcdaniels MD [facility] [place] [address] 12/13/2023 10:00 AM EDT Clinical Support [place] [phone] Lucero Romero, AL[place] [facility] [place] [address] documented as of this encounter Visit Diagnoses Not on filedocumented in this encounter Care Teams Towboat Operator Relationship Specialty Start Date End Date Polo Pearce PA [address] [place] [address] PCP - General Internal Medicine 06/09/21 documented as of this encounter
--- OUTSIDE RECORDS SUMMARY | 2023-10-02 22:47 | XMS_ITS | Encounter Summary ---
Author Organization [facility] [place] [address] Care Team Providers Care Grating Machine Operator Name Role Phone Polo Pearce Primary Care Provider [phone] Encounter Details Date Type Department Care Team (Late st Contact Info) Description 07/29/2022 9:50 PM EDT Ancillary Procedure Radiology [place] [phone] Marcia Kamara MD [facility] [place] [address] Social History Tobacco Use Types Packs/Day Years [...] AM EDT Tech [place] [phone] [place] 10/08/2023 9:30 AM EDT Office Visit [place] [address] MD [facility] [place] [address] 10/21/2023 10:30 AM EDT Appointment Nuclear Medicine at [place] [phone] Mary Reyes [facility] [place] [address] 10/21/2023 11:30 AM EDT Appointment Nuclear Medicine at [place] [phone] Mary Reyes [facility] [place] [address] 10/21/2023 12:30 PM EDT Appointment [place] [address] Mary Reyes [facility] [place] [address] 10/21/2023 1:30 PM EDT Appointment [place] [address] Mary Reyes [facility] [place] [address] 10/21/2023 2:30 PM EDT Appointment [place] [phone] Mary Reyes [facility] [place] [address] 10/26/2023 4:00 PM EDT Office Visit Cardiology at [address] [phone] Jaspreet Kinsey MD [facility] [place] [address] 10/28/2023 9:00 AM EDT Office [place] [address] 10/29/2023 10:00 AM EDT Clinical [place] [address] 10/29/2023 10:15 AM EDT Procedure [place] [address] 11/01/2023 5:00 PM EDT Office Visit [place] [phone] Selene Browning, PhD [facility] [place] [address] 11/22/2023 4:40 PM EDT Office Visit Cardiology at [address] [address] Porsha Mcdaniels MD [facility] [place] [address] 12/13/2023 10:00 AM EDT Clinical Support [place] [phone] Lucero Romero, ALVA [facility] [place] [address] documented as of this encounter Procedures Procedure Name Priority Date/Time Associated Diagnosis Comments FILM LIBRARY STORAGE ONLY CT HEAD AND SPINE Routine 07/29/2022 9:45 PM EDT documented in this encounter Results * Film Library- Storage Only CT Head And Spine (07/29/2022 9:45 PM EDT) Narrative [facility] - 07/29/2022 9:45 PM EDT This exam is auto-finalizing. It's purpose is for storage only. Marcia Kamara MD IMG FILM LIBRARY ORD ERABLES [place], [place] documented in this encounter Visit Diagnoses Not on filedocumented in this encounter Care Teams Grating Machine Operator Relationship Specialty Start Date End Date Polo Pearce PA [address] [place] [address] PCP - General Internal Medicine 06/09/21 documented as of this encounter
--- OUTSIDE RECORDS SUMMARY | 2023-10-02 22:47 | XMS_ITS | Encounter Summary ---
Author Organization [facility] [place] [address] Care Team Providers Care Shuttle Filler Name Role Phone Polo Pearce Primary Care Provider [phone] Encounter Details Date Type Department Care Team (Late st Contact Info) Description 12/30/2021 8:00 PM EDT Ancillary Procedure Radiology [place] [phone] Jaspreet Kinsey MD [facility] [place] [address] Social History Tobacco Use Types Packs/Day Years [...] AM EDT Tech [place] [address]-1000 [place] 10/08/2023 9:30 AM EDT Office Visit [place] [address] MD [facility] DR VASCULAR [place] [address] 10/21/2023 10:30 AM EDT Appointment Nuclear Medicine at [place] [phone] Mary Reyes [facility] [place] [address] 10/21/2023 11:30 AM EDT Appointment Nuclear Medicine at [place] [phone] [place] [address] 10/21/2023 12:30 PM EDT Appointment [place] [address]1000 Mary Reyes [facility] [place] [address] 10/21/2023 1:30 PM EDT Appointment [place] [address]1000 Mary Reyes [facility] [place] [address] 10/21/2023 2:30 PM EDT Appointment [place] [address] Mary Reyes [facility] [place] [address] 10/26/2023 4:00 PM EDT Office Visit Cardiology at [address] [address] Jaspreet Kinsey MD [facility] [place] [address] 10/28/2023 9:00 AM EDT Office [place] [address] 10/29/2023 10:00 AM EDT Clinical [place] [address] 10/29/2023 10:15 AM EDT Procedure [place] [address] 11/01/2023 5:00 PM EDT Office Visit [place] [phone] Selene Browning, PhD [facility] PSYCHIATRY [place] [address] 11/22/2023 4:40 PM EDT Office Visit Cardiology at [address] [address] Porsha Mcdaniels MD [facility] [place] [address] 12/13/2023 10:00 AM EDT Clinical Support [place] [phone] [facility] DR NUTRITION [place] [address] documented as of this encounter Procedures Procedure Name Priority Date/Time Associated Diagnosis Comments FILM LIBRARY STORAGE ONLY CT CHEST Routine 12/30/2021 7:55 PM EDT documented in this encounter Results * Film Library- Storage Only CT Chest (12/30/2021 7:55 PM EDT) Narrative [facility] - 12/30/2021 7:55 PM EDT This exam is auto-finalizing. It's purpose is for storage only. Jaspreet Kinsey MD IMG FILM LIBRARY ORD ERABLES [facility] [place], [place] documented in this encounter Visit Diagnoses Not on filedocumented in this encounter Care Teams Shuttle Filler Relationship Specialty Start Date End Date Polo Pearce PA [address] [place] [address] PCP - General Internal Medicine 06/09/21 documented as of this encounter
--- OUTSIDE RECORDS SUMMARY | 2023-10-02 22:47 | XMS_ITS | Encounter Summary ---
[facility] Organization [facility] Address [facility] [place] [address] Care Team Providers Care Data Services Developer Name Role Phone Polo Pearce Primary Care Provider [phone] Encounter Details Date Type Department Care Team (Late st Contact Info) Description 07/28/2022 Telephone Cardiology at [address] [place] [address] Jaspreet Kinsey MD [facility] [place] [address] Social History Tobacco Use Types Packs/Day Years [...] and would like a call back @ [phone] * Telephone Encounter - Nilda Mayes, RN - 07/28/2022 10:57 AM EDT Indira says she is being discharged to home from [facility] today. Home diuretic therapy isn't working well. When I'm in the hospital, it really comes down again. She asks if the fluid pill needs to be changed. Plan: to request discharge records from [facility] when available. * Telephone Encounter - Brenda Callahan - 07/28/2022 10:44 AM EDT PT called she was advised to call this office. She has a few questions. Prior notes in chart she has been at [facility]. She would like a call back from a nurse please. [phone] documented in this encounter Plan of Treatment Upcoming Encounters Date Type Department Care Team (Late st Contact Info) Description 10/08/2023 8:30 AM EDT Tech [place] [phone] [place] 10/08/2023 9:30 AM EDT Office Visit V[place] [phone] MD [facility] [place] [place] [address] 10/21/2023 10:30 AM EDT Appointment [place] [phone] Mary Reyes APRN [facility] [place] [address] 10/21/2023 11:30 AM EDT Appointment [place] [phone] [place] [address] 10/21/2023 12:30 PM EDT Appointment [place] [phone] [place] [address] 10/21/2023 1:30 PM EDT Appointment [place] [phone] [place] [address] 10/21/2023 2:30 PM EDT Appointment [place] [address] [place] [address] 10/26/2023 4:00 PM EDT Office Visit Cardiology at [address] [phone] Jaspreet Kinsey MD [facility] [place] [address] 10/28/2023 9:00 AM EDT Office [place] [address] 10/29/2023 10:00 AM EDT Clinical [place] [address] 10/29/2023 10:15 AM EDT Procedure [place] [address] 11/01/2023 5:00 PM EDT Office Visit Gastroenterology at [place] [phone] Selene Browning, PhD [facility] [place] [address] 11/22/2023 4:40 PM EDT [place] [address] Porsha Mcdaniels MD [facility] [place] [address] 12/13/2023 10:00 AM EDT Clinical Support [place] [phone] Lucero Romero, ALVA [facility] [place] [place] [address] documented as of this encounter Visit Diagnoses Not on filedocumented in this encounter Care Teams Data Services Developer Relationship Specialty Start Date End Date Polo Pearce PA [address] [place] [address] PCP - General Internal Medicine 06/09/21 documented as of this encounter
--- OUTSIDE RECORDS SUMMARY | 2023-10-02 22:47 | XMS_ITS | Encounter Summary ---
Author Organization [facility] Address [facility] [place] [address] Care Team Providers Care Hotbed Lever Operator Name Role Phone Polo Pearce Primary Care Provider [phone] Reason for Visit * Reason Comments Congestive Heart Failure HFpEF Palpitations SVT/AVNRT * Consultation (Routine) - Closed Specialty Diagnoses / Procedures Referred By Contac t Referred To Contact Cardiology Diagnoses HFp EF Procedures NEW PATIENT Mario Hallman MD [facility] [address] Jaspreet Kinsey MD [facility] [address] Referral ID Status Reason Start Date Expiration Date Visits Re quested Visits Authorized [id number] Closed 07/23/2021 07/23/2022 1 1 Encounter Details Date Type Department Care Team (Late st Contact Info) Description 07/23/2021 8:20 AM EDT Office Visit Cardiology at [address] [phone] Jaspreet Kinsey MD [facility] [place] [address] Heart failure with preserved ejection fraction, unspecified [...] preserved ejection fraction 05/2021: subacute, presented to [facility] with RUQ pain, weight gain, and progressive [...] needed. ??? fluticasone propionate (FLONASE) 50 mcg/actuation [place], Suspension 1 spray by Each Nare route [...] for hfpef and svt She presented to [facility] end of May with subacute RUQ pain [...] AM EDT Tech [place] [phone] [place] 10/08/2023 9:30 AM EDT Office [place] [phone] MD [facility] [place] [place] [address] 10/21/2023 10:30 AM EDT Appointment [place] [phone] Mary Reyes [facility] [place] [address] 10/21/2023 11:30 AM EDT Appointment [place] [phone] [place] [address] 10/21/2023 12:30 PM EDT Appointment [place] [address] Mary Reyes, [place] [address] 10/21/2023 1:30 PM EDT Appointment [place] [address] Mary Reyes, [place] [address] 10/21/2023 2:30 PM EDT Appointment [place] [address] Mary Reyes, [place] [address] 10/26/2023 4:00 PM EDT Office Visit Cardiology at [address] [phone] Jaspreet Kinsey MD [facility] [place] [address] 10/28/2023 9:00 AM EDT Office Visit [place] [address] 10/29/2023 10:00 AM EDT Clinical Support [place] [address] 10/29/2023 10:15 AM EDT Procedure visit [place] [address] 11/01/2023 5:00 PM EDT Office [place] [address] Selene Browning, PhD [facility] [address] 11/22/2023 4:40 PM EDT Office Visit Cardiology at [address] [phone] Porsha Mcdaniels MD [facility] [place] [address] 12/13/2023 10:00 AM EDT Clinical [place] [phone] [facility] [place] [place] [address] documented as of this encounter Visit Diagnoses Diagnosis Heart failure with preserved ejection fraction, unspecified HF chronicity SVT (supraventricular tachycardia) Other specified cardiac dysrhythmias documented in this encounter Care Teams Hotbed Lever Operator Relationship Specialty Start Date End Date Polo Pearce PA [address] [place] [address] PCP - General Internal Medicine 06/09/21 documented as of this encounter
--- OUTSIDE RECORDS SUMMARY | 2023-10-02 22:47 | XMS_ITS | Encounter Summary ---
Author Organization [facility] Address [facility] [place] [address] Care Team Providers Care Roustabout Head Name Role Phone Polo Pearce Primary Care Provider [phone] Reason for Visit * Reason Comments Medication Refill Encounter Details Date Type Department Care Team (Late st Contact Info) Description 07/24/2022 Refill Cardiology at [address] [phone] Deja Zaidi PA [facility] [place] [address] Medication Refill Social History Tobacco Use Types [...] EDT Tech Visit [place] [phone] [place] 10/08/2023 9:30 AM EDT Office [place] [phone] [facility] [place] [address] 10/21/2023 10:30 AM EDT Appointment Nuclear Medicine at [place] [phone] Mary Reyes [facility] [place] [address] 10/21/2023 11:30 AM EDT Appointment Nuclear Medicine at [place] [phone] Mary Reyes [facility] [place] [address] 10/21/2023 12:30 PM EDT Appointment [place] [address] Mary Reyes [facility] [place] [address] 10/21/2023 1:30 PM EDT Appointment [place] [phone] Mary Reyes [facility] [place] [address] 10/21/2023 2:30 PM EDT Appointment [place] [phone] Mary Reyes [facility] [place] [address] 10/26/2023 4:00 PM EDT Office Visit Cardiology at [address] [phone] Jaspreet Kinsey MD [facility] [place] [address] 10/28/2023 9:00 AM EDT Office Visit [place] [address] 10/29/2023 10:00 AM EDT Clinical Support [place] [address] 10/29/2023 10:15 AM EDT Procedure visit [place] [address] 11/01/2023 5:00 PM EDT Office Visit Gastroenterology at [place] [phone] Selene Browning, PhD [facility] [place] [address] 11/22/2023 4:40 PM EDT Office Visit Cardiology at [place] [phone] Porsha Mcdaniels MD [facility] [place] [address] 12/13/2023 10:00 AM EDT Clinical [place] [phone] Lucero Romero, ALVA [facility] [place] [address] documented as of this encounter Visit Diagnoses Diagnosis Chronic heart failure with preserved ejection fraction documented in this encounter Care Teams Roustabout Head Relationship Specialty Start Date End Date Polo Pearce PA S[address] [place] [address] PCP - General Internal Medicine 06/09/21 documented as of this encounter
--- OUTSIDE RECORDS SUMMARY | 2023-10-02 22:47 | XMS_ITS | Encounter Summary ---
Author Organization [facility] [place] [address] Care Team Providers Care Dna Sequencing Associate Name Role Phone Polo Pearce Primary Care Provider [phone] Encounter Details Date Type Department Care Team (Late st Contact Info) Description 07/29/2022 9:45 PM EDT Ancillary Procedure [place] [phone] Marcia Kamara MD [facility] [place] [address] Social History Tobacco Use Types Packs/Day Years [...] AM EDT Tech [place] [phone] [place] 10/08/2023 9:30 AM EDT Office Visit [place] [address] MD [facility] [place] [address] 10/21/2023 10:30 AM EDT Appointment Nuclear Medicine at [place] [phone] Mary Reyes [facility] [place] [address] 10/21/2023 11:30 AM EDT Appointment Nuclear Medicine at [place] [phone] Mary Reyes [facility] [place] [address] 10/21/2023 12:30 PM EDT Appointment [place] [address] Mary Reyes [facility] [place] [address] 10/21/2023 1:30 PM EDT Appointment [place] [address] Mary Reyes [facility] [place] [address] 10/21/2023 2:30 PM EDT Appointment [place] [phone] Mary Reyes [facility] [place] [address] 10/26/2023 4:00 PM EDT Office Visit Cardiology at [address] [phone] Jaspreet Kinsey MD [facility] [place] [address] 10/28/2023 9:00 AM EDT Office [place] [address] 10/29/2023 10:00 AM EDT Clinical [place] [address] 10/29/2023 10:15 AM EDT Procedure [place] [address] 11/01/2023 5:00 PM EDT Office Visit [place] [phone] Selene Browning, PhD [facility] [place] [address] 11/22/2023 4:40 PM EDT Office Visit Cardiology at [address] [phone] Porsha Mcdaniels MD [facility] [place] [address] 12/13/2023 10:00 AM EDT Clinical Support [place] [phone] [facility] [place] [address] documented as of this encounter Procedures Procedure Name Priority Date/Time Associated Diagnosis Comments FILM LIBRARY STORAGE ONLY CT CHEST Routine 07/29/2022 9:43 PM EDT documented in this encounter Results * Film Library- Storage Only CT Chest (07/29/2022 9:43 PM EDT) Narrative [facility] - 07/29/2022 9:43 PM EDT This exam is auto-finalizing. It's purpose is for storage only. Marcia Kamara MD IMG FILM LIBRARY ORD ERABLES [place], [place] documented in this encounter Visit Diagnoses Not on filedocumented in this encounter Care Teams Dna Sequencing Associate Relationship Specialty Start Date End Date Polo Pearce PA S[address] [place] [address] PCP - General Internal Medicine 06/09/21 documented as of this encounter
--- OUTSIDE RECORDS SUMMARY | 2023-10-02 22:47 | XMS_ITS | Encounter Summary ---
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 due to symptomatic SVT with myocardial injury Sandy Serna MD [facility] [place] [address] [facility] Cardiology [address] [place] [phone] Referral ID Status Reason Start Date Expiration Date V isits Requested Visits Authorized [id number] Closed Consult, Test & Treat 06/14/2021 06/14/2022 1 1 Encounter Details Date Type Department Care Team (Late st Contact Info) Description 08/19/2021 3:00 PM EDT Office Visit Cardiology at [address] [phone] Umberto Joy PA [facility] [place] [address] AVNRT (AV makayla re-entry tachycardia) [...] EKGs(ST T-wave abnormalities) but clean cors at [facility] in 2019 and essentially normal echocardiogram(LVEF [...] anticipated in the future. She lives in [place], [place] and has seen Dr. Kinsey in [place]. Patient Active Problem List Diagnosis ??? 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 Obesity ??? Dyslipidemia ??? MARYLOU on CPAP ??? Restless leg syndrome ??? Insomnia ??? 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 ??? fluticasone propionate (FLONASE) 50 mcg/actuation [place], Suspension 1 spray by Each Nare route [...] 12 lead EK08/19/2021 Sinus bradycardia @ 57; KS 176; QRS 84; QTc 443ms Zio: 06/09/2021 [...] atrial premature beat conducted with a prolonged KS interval, strongly suggestive of atrioventricular makayla reentrant [...] No significant change from prior in 08/2019. [facility]: 08/2019 Clean coronaries Assessment and Plan 51yo [...] history and diagnostic findings with emphasis on potline monitor data. We also discussed risk/benefit of [...] Tech Visit Vascular Lab at [place] [phone] [place] 10/08/2023 9:30 AM EDT Office Visit Vascular Surgery at [place] [phone] MD [facility] DR [place] [address] 10/21/2023 10:30 AM EDT Appointment Nuclear Medicine at [place] [phone] [place] [address] 10/21/2023 11:30 AM EDT Appointment Nuclear Medicine at [place] [phone] [place] [address] 10/21/2023 12:30 PM EDT Appointment Nuclear Medicine at [place] [phone] [place] [address] 10/21/2023 1:30 PM EDT Appointment [place] [address] [place] [address] 10/21/2023 2:30 PM EDT Appointment [place] [phone] Mary Reyes [facility] [place] [address] 10/26/2023 4:00 PM EDT Office Visit Cardiology at [address] [phone] Jaspreet Kinsey MD [facility] [place] [address] 10/28/2023 9:00 AM EDT Office [place] [address] 10/29/2023 10:00 AM EDT Clinical [place] [address] 10/29/2023 10:15 AM EDT Procedure [place] [address] 11/01/2023 5:00 PM EDT Office Visit [place] [phone] Selene Browning, PhD [facility] DR PSYCHI[place] [address] 11/22/2023 4:40 PM EDT Office Visit Cardiology at [address] [phone] Porsha Mcdaniels MD [facility] [place] [address] 12/13/2023 10:00 AM EDT Clinical Support [place] [phone] [facility] [place] [address] documented as of this encounter Procedures Procedure [...] (Bezet) 443 ms MUSE SYSTEM Calculated P Ada 49 degrees MUSE SYSTEM Calculated R Ada 63 degrees MUSE SYSTEM Calculated T Ada -60 degrees MUSE SYSTEM INTERPRETATION Sinus bradycardia Possible Left atrial enlargement Marked ST abnormality, possible inferior subendocardial injury Abnormal ECG When compared with ECG of 23-JUL-2021 09:02, Nonspecific T wave abnormality now evident in Inferior leads T wave inversion now evident in Anterior leads Confirmed by MD Maximino, Clay ([id number]) on 08/19/2021 3:53:23 PM MUSE SYSTEM 08/19/2021 2:54 PM EDT 08/19/2021 3:53 PM EDT Dave Tavares MD ECG ORDERABLES MUSE SYSTEM documented in this encounter Visit Diagnoses Diagnosis AVNRT (AV makayla re-entry tachycardia) Other specified cardiac dysrhythmias documented in this encounter Care Teams Strand Galvanizer Relationship Specialty Start Date End Date Polo Pearce PA [address] [place] [address] PCP - General Internal Medicine 06/09/21 documented as of this encounter
--- OUTSIDE RECORDS SUMMARY | 2023-10-02 22:48 | XMS_ITS | Encounter Summary ---
Author Organization [facility] [place] [address] Care Team Providers Care Facility Manager Name Role Phone Polo Pearce Primary Care Provider [phone] Encounter Details Date Type Department Care Team (Late st Contact Info) Description 06/13/2021 Telephone [place] [address] Ralf Mejia MD [facility] [address] Social History Tobacco Use Types Packs/Day Years [...] Referring provider: Jasiel Caicedo MD Patient location: [facility] Past medical history: HLD HTN Asthma Depression ?Micrvascular disease SVT MARYLOU Diastolic heart failure History 51-year-old female with history as noted above who is just admitted to [facility] for evaluation of angina with discharge 06/08/2021. At that time she initially presented to [facility] where she was noted to have a troponin I of 406 which was flat at 411 on repeat and an elevated BNP. EKG showed nonspecific ST changes in the inferolateral leads. She was transferred to [facility] for further evaluation where she underwent a [...] I and her recent work-up here at [facility] which did not include an ischemic evaluation but did include a transesophageal echocardiogramserial EKGs and serial negative troponins that further work-up at [facility] may be appropriate. Suspect that her symptoms [...] possible microvascular angina. Plan: -Continue management at [facility]. -Recommend stress test at [facility]. -Start metoprolol succinate 25 mg daily with follow-up with cardiology and up titration. -Continue medications as prescribed from her recent discharge. -Planning to get serial troponins and EKGs. If these are markedly changing can reassess and consider transfer to [facility] for further evaluation. Ralf Mejia MD 06/13/2021 12:05 AM documented in this encounter Plan of Treatment Upcoming Encounters Date Type Department Care Team (Late st Contact Info) Description 10/08/2023 8:30 AM EDT Tech Visit Vascular Lab at [place] [phone] [place] 10/08/2023 9:30 AM EDT Office Visit [place] [address] MD [facility] [place] [address] 10/21/2023 10:30 AM EDT Appointment Nuclear Medicine at [place] [phone] [place] [address] 10/21/2023 11:30 AM EDT Appointment [place] [phone] Mary [place] [address] 10/21/2023 12:30 PM EDT Appointment [place] [phone] [place] [address] 10/21/2023 1:30 PM EDT Appointment [place] [address] Mary Reyes APRN [facility] [place] [address] 10/21/2023 2:30 PM EDT Appointment Nuclear Medicine at [place] [phone] Mary Reyes APRN [facility] [place] [address] 10/26/2023 4:00 PM EDT Office Visit Cardiology at [address] [phone] Jaspreet Kinsey MD [facility] [place] [address] 10/28/2023 9:00 AM EDT Office Visit [place] [address] 10/29/2023 10:00 AM EDT Clinical Support [place] [address] 10/29/2023 10:15 AM EDT Procedure visit [place] [address] 11/01/2023 5:00 PM EDT Office Visit Gastroenterology at [place] [phone] Selene Browning, PhD [facility] [place] [address] 11/22/2023 4:40 PM EDT Office Visit Cardiology at [address] [phone] Porsha Mcdaniels MD [facility] [place] [address] 12/13/2023 10:00 AM EDT Clinical Support [place] [address] Lucero Romero, ALVA [facility] [address] documented as of this encounter Visit Diagnoses Not on filedocumented in this encounter Care Teams Facility Manager Relationship Specialty Start Date End Date Polo Pearce PA [address] [place] [address] PCP - General Internal Medicine 06/09/21 documented as of this encounter
--- OUTSIDE RECORDS SUMMARY | 2023-10-02 22:48 | XMS_ITS | Encounter Summary ---
[place] [address] Care Team Providers Care Administrative Assistant Office Manager Name Role Phone Polo Pearce Primary Care Provider [phone] Encounter Details Date Type Department Care Team (Late st Contact Info) Description 06/12/2021 External Results [place] [phone] Social History Tobacco Use Types Packs/Day Years [...] AM EDT Tech [place] [address] Channing Esc[place] 10/08/2023 9:30 AM EDT Office Visit Vascular [place] [phone] MD [facility] [place] [address] 10/21/2023 10:30 AM EDT Appointment [place] [address] Mary Reyes [facility] [place] [address] 10/21/2023 11:30 AM EDT Appointment [place] [address] Mary Reyes [facility] [address] 10/21/2023 12:30 PM EDT Appointment [place] [address] Mary Reyes [facility] [place] [address] 10/21/2023 1:30 PM EDT Appointment [place] [address] Mary Reyes [facility] [place] [address] 10/21/2023 2:30 PM EDT Appointment [place] [address] Mary Reyes [facility] [address] 10/26/2023 4:00 PM EDT Office Visit Cardiology at [address] [phone] Jaspreet Kinsey MD [facility] [place] [address] 10/28/2023 9:00 AM EDT Office Visit [place] [address] 10/29/2023 10:00 AM EDT Clinical Support [place] [address] 10/29/2023 10:15 AM EDT Procedure visit [place] [address] 11/01/2023 5:00 PM EDT Office Visit Gastroenterology at [place] [phone] Selene Browning, PhD [facility] [place] [address] 11/22/2023 4:40 PM EDT Office Visit Cardiology at [place] [phone] Porsha Mcdaniels MD [facility] [place] [address] 12/13/2023 10:00 AM EDT Clinical Support G[place] [address] Lucero Romero, [place] [facility] [place] [address] documented as of this encounter Procedures Procedure Name Priority Date/Time Associated Diagnosis Comments ECG SCAN Routine 06/12/2021 documented in this encounter Results * Scan Doc: ECG (06/12/2021) Historical Provider MD FLEMING MGR SCAN EX T ORDR/RSLT documented in this encounter Visit Diagnoses Not on filedocumented in this encounter Care Teams Administrative Assistant Office Manager Relationship Specialty Start Date End Date Polo Pearce PA Sb MOTT [address] [place] [id number] PCP - General Internal Medicine 06/09/21 documented as of this encounter
--- OUTSIDE RECORDS SUMMARY | 2023-10-02 22:48 | XMS_ITS | Encounter Summary ---
Author Organization [facility] [place] [address] Care Team Providers Care Farmer General Name Role Phone Polo Pearce Primary Care Provider [phone] Reason for Visit * Reason Onset Date Comments Medication Refill 06/10/2021 Jardiance Encounter Details Date Type Department Care Team (Late st Contact Info) Description 06/10/2021 Refill Cardiology at [address] [phone] Deja Zaidi PA [facility] [place] [address] Medication Refill (Jardiance) Social History Tobacco Use [...] AM EDT Tech Visit [place] [phone] [place] 10/08/2023 9:30 AM EDT Office Visit [place] [address] MD [facility] [place] [address] 10/21/2023 10:30 AM EDT Appointment Nuclear Medicine at [place] [phone] Mary Reyes, [facility] [place] [place] [address] 10/21/2023 11:30 AM EDT Appointment Nuclear Medicine at [address] [place] [address] 10/21/2023 12:30 PM EDT Appointment [place] [address] [facility] [place] [address] 10/21/2023 1:30 PM EDT Appointment [place] [address] [facility] [place] [address] 10/21/2023 2:30 PM EDT Appointment [place] [address] [facility] [place] [address] 10/26/2023 4:00 PM EDT Office Visit Cardiology at [address] [place] [address] Jaspreet Kinsey MD [facility] [address] 10/28/2023 9:00 AM EDT Office [place] [address] 10/29/2023 10:00 AM EDT Clinical [place] [address] 10/29/2023 10:15 AM EDT Procedure [place] [address] 11/01/2023 5:00 PM EDT Office Visit [place] [phone] Selene Browning, PhD [facility] [place] [address] 11/22/2023 4:40 PM EDT Office Visit Cardiology at [address] [phone] Porsha Mcdaniels MD [facility] [place] [address] 12/13/2023 10:00 AM EDT Clinical Support [place] [phone] [facility] [place] [address] documented as of this encounter Visit Diagnoses Diagnosis Chronic heart failure with preserved ejection fraction documented in this encounter Care Teams Farmer General Relationship Specialty Start Date End Date Polo Pearce PA Sb MOTT [address] [place] [id number] PCP - General Internal Medicine 06/09/21 documented as of this encounter
--- OUTSIDE RECORDS SUMMARY | 2023-10-02 22:48 | XMS_ITS | Encounter Summary ---
[place] [address] Care Team Providers Care [employer] Crewmember Name Role Phone Polo Pearce Primary Care Provider [phone] Reason for Visit * Auth/Cert Specialty Diagnoses / Procedures Referred By Jayant harris Referred To Contact Diagnoses NSTEMI (non-ST elevated myocardial infarction) NSTEMI Procedures EMERGENCY OBSVO Referral ID Status Reason Start Date Expiration Date Visits Re quested Visits Authorized [id number] 1 1 Encounter Details Date Type Department Care Team (Late st Contact Info) Description 06/09/2021 8:15 AM EDT - 06/09/2021 9:15 AM EDT Surgery [place] [id number] Aaron Ash MD [facility] [place] [address] CARDIAC CATHETERIZATION Social History Tobacco Use Types [...] Loida Roque Patient Age: 51 y.o. Language: Sudanese Race: White Ethnicity: Not nor Admit date: [...] in a week and prn ?? Consider [facility] as an out patient Inpatient Provider Contact Information: Dr. Mario Zaidi PA-C [phone] Discharge Diagnoses (Hospital Problems) and Secondary Diagnoses [...] change from prior in 08/2019. ?? Procedure Complete-84689. Image enhancement Definity was used for left [...] who have questions please contact the health family day care provider that requested your imaging first. CXR 06/08/2021 [...] hysterectomy, Insomnia, and migraine who presents to [facility] with RUQ pain that radiated to [...] Hospital Course: On admission to [facility], the patient had no complaints of chest pain or shortness of breath at rest.Telemetry was attached which showed normal sinus rhythm. Heparin drip was infusing. [facility] records/transfer records were reviewed. Baseline labs were checked and/or drawn. Chest Pain, OR ruled out, Echo showed preserved LVEF Given [...] needed Follow up Appointments: PCP Tim Rogers, PROFESSOR CRIMINAL JUSTICE [phone] to see you in a week (patient to set this up) Mel placed on 06/09/2021 Cardiology to see in a month and prn. Dr. Kinsey to see the patient in [place] on July 23 at 920 am. Please call [phone] with questions. Home oxygen therapy: N/A Arrangements for VNA/home care: none Future Appointments and Orders Future Appointments and Orders Future Appointments Provider Department Dept Phone 07/23/2021 8:20 AM Jaspreet Kinsey MD Cardiology at [place] Arrive at: [facility] [address] [phone] Future Orders Complete By Expires Ziopatch 48 Hrs-15 Days [[id number] CPT(R)] 06/09/2021 12/09/2021 Process Instructions: Scheduling Instructions: [...] needed Follow up Appointments: PCP Tim Rogers, PROFESSOR CRIMINAL JUSTICE [phone] to see you in a week (patient to set this up) Ziopatch placed on 06/09/2021 Cardiology to see in a month and prn. Dr. Kinsey to see the patient in [place] on July 23 at 920 am. Please call [phone] with questions. Home oxygen therapy: N/A Arrangements for VNA/home care: none documented in this encounter Medications at Time of Discharge Medication Sig Dispensed Refills Start Date End Date rOPINIRole (Requip) 1 mg Tablet Take 2 mg by mouth 2 times daily. 07/16/2020 loratadine (Claritin) 10 mg Tablet Take 10 mg by mouth daily as needed. fluticasone propionate (FLONASE) 50 mcg/actuation [place], Suspension 1 spray by Each Nare route [...] Nutrition Plan: Pt seen for Na2gm diet. Manager Enterprise informed pt of current diet orders and their restrictions. Pt expressed understanding and informed this newswriter that she tries to limit salt use at home. Manager Enterprise and pt discussed common sources of sodium [...] nausea and no vomiting Last Bowel Movement: (SIDING INSTALLER) Patient education / questions: provided diet order education and patient with good understanding, written education and contact information provided and all nutrition related questions answered at this time Nutrition services to follow weekly through hospital course unless consulted in the interim. Rocio Rosenthal Pager: [phone] * Deja Zaidi PA - 06/09/2021 9:14 AM EDT Inpatient Cardiology Discharge Day Note Patient Name: Loida Roque Service: INFANTRY ASSAULTMAN / PA Responsible Attending: Mario Hallman MD [...] [May] lisinopriL 2.5 mg Oral Daily ??? [MAY Hold] atorvastatin 80 mg Oral QPM ??? [MAY Hold] aspirin 81 mg Oral Daily ??? [MAY Hold] furosemide 20 mg Oral Daily ??? [May] traZODone 100 mg Oral Nightly Continuous Infusions: PRN Meds:midazolam (PF), atropine, fentaNYL (PF), [MAY Hold] acetaminophen, [MAY Hold] traMADoL, [MAY Hold] hydrOXYzine, [May] albuteroL Physical Exam: Vital Signs: [...] 24 hour(s)) urine, qualitative ([facility]/P/NL) Result Value Ref Range Spec [place] UA 1.010 1.006 - 1.030 HCG Qual [...] presents to [facility] from [facility] with a NSTEMI. She has an [...] with Dr. Hallman. ?? JOCY Hernandez Pager [phone] JOCY MCKOY 06/09/2021 Associated attestation - Mario Hallman MD - 06/09/2021 9:37 PM EDT Cardiology Attending Addendum I shared this visit with JOCY Zaidi and guided the medical decision- making. I explained to patient the findings of echo, R heart catheterization and our diagnostic impression and medications (furosemide and empagliflozin) and possible adverse events. More than 30 minutes were spent in [id number] contact with patient and with arranging discharge and coordinating follow-up. * Silvino Rboles RCP - 06/09/2021 5:48 AM EDT Respiratory [...] Jaspreet Pardo - 06/08/2021 8:34 PM EDT Carton Stamper Encounter Note Patient Name: Loida Roque : [id number] MR#: [id number] Admit Date: 06/07/2021 3:49 PM Hospital Day 0 days Narrative: Initial rounding visit to introduce tree thinner services and to assess patient interest. Patient [...] Day Note Patient Name: Loida Roque Service: INFANTRY ASSAULTMAN / PA Responsible Attending: Mario Hallman MD [...] ??? heparin (porcine) infusion 1,100 Units/hr (06/08/21 0707) PRN Meds:hydrOXYzine, heparin (porcine) infusion AND heparin [...] PCR Not Detected Not Detected SARS-CoV-2 Source INFANTRY ASSAULTMAN Swab Troponin Result Value Ref Range Troponin-T [...] presents to [facility] from [facility] with a NSTEMI. She has an [...] with Dr. Hallman. ?? 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 ??? fluticasone propionate (FLONASE) 50 mcg/actuation [place], Suspension 1 spray by Each Nare route [...] presents to [facility] from [facility] with a NSTEMI. She has an elevated trop, BNP and lateral EKG changes. Patient is now awaiting an Echo and cardiac cath. Neurology consult called in to determine if she needs imaging prior to her Echo and cath given garbled speech a week ago. Stable at this time. TREATMENT PLAN: NSTEMI Admit to [facility] for telemetry monitoring Serial enzymes [...] JOCY Hernandez 06/07/2021 Provider: JOCY MCKOY Pager [phone] 06/07/2021 Associated attestation - Mario Hallman MD [...] COVID test: Lab Results Component Value Date [id number] Not Detected 06/07/2021 Present on Admission: ??? NSTEMI (non-ST elevated myocardial infarction) ??? Asthma ??? MARYLOU on CPAP ??? Insomnia ??? Chronic heart failure with preserved ejection fraction Hospitalizations Within the Past 30 Days: no previous admission in last 30 days Patient receiving hospital care under Observation status. Admission order reviewed. Primary Insurance on file: [employer] Secondary Insurance on file:@ Primary care provider on file: Tim Rogers APRN [phone] Pharmacy: [facility] - [place], [place] - [address] [place] [address] Advance Care Planning: Attempt Cardiopulmonary Resuscitation - Inpatient <no information> -Advanced Directive: No, declines (Boby (spouse) SDM) Current Functional Ability: Independent Functional Status Prior to Admission: Independent Home Environment: Others in the home: spouse. Current Living Arrangements: home/apartment/condo. Accessibility Concerns: . Current DME: none [address] [place] [address] Social & Family Supports: All names listed [...] private vehicle when medically ready. Registered Nurse Medical Transcription Radiology / Veterinary Radiologist will continue to follow patient???s progress and [...] Daily. ??? 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 Consider RETAIL AGENT consult for full evaluation and diet recommendations. [...] for further details. JOCY MCKOY 06/07/2021 Pager [phone] documented in this encounter Plan of Treatment Upcoming Encounters Date Type Department Care Team (Late st Contact Info) Description 10/08/2023 8:30 AM EDT Tech Visit Vascular Lab at [place] [phone] [place] [place] 10/08/2023 9:30 AM EDT Office Visit [place] [address] MD [facility] [place] [address] 10/21/2023 10:30 AM EDT Appointment [place] [phone] Mary [place] [address] 10/21/2023 11:30 AM EDT Appointment [place] [phone] [place] [address] 10/21/2023 12:30 PM EDT Appointment [place] [phone] [place] [address] 10/21/2023 1:30 PM EDT Appointment [place] [address] Mary Reyes APRN [facility] [place] [address] 10/21/2023 2:30 PM EDT Appointment [place] [address] Mary Reyes PROFESSOR CRIMINAL JUSTICE [facility] [place] [address] 10/26/2023 4:00 PM EDT Office Visit Cardiology at [address] [phone] Jaspreet Kinsey MD [facility] [place] [address] 10/28/2023 9:00 AM EDT Office Visit [place] [address] 10/29/2023 10:00 AM EDT Clinical Support [place] [address] 10/29/2023 10:15 AM EDT Procedure visit [place] [address] 11/01/2023 5:00 PM EDT Office [place] [phone] Selene Browning, PhD [facility] [place] [address] 11/22/2023 4:40 PM EDT Office Visit Cardiology at [address] [phone] Porsha Mcdaniels MD [facility] [place] [address] 12/13/2023 10:00 AM EDT Clinical Support [place] [address] Lucero Romero, ALVA [facility] [place] [place] [address] documented as of this encounter Procedures Procedure [...] (non-ST elevated myocardial infarction) RAPID COVID-19 PCR ([facility]/APD/[facility]H) Routine 06/07/2021 4:30 PM EDT documented in this encounter Results * Ziopatch 48 Hrs-15 Days (06/09/2021 3:48 PM EDT) Anatomical Region Laterality Modality Other Narrative 07/01/2021 9:29 AM EDT [facility] ? Zio Patch? Ambulatory Cardiac Event [...] atrial premature beat conducted with a prolonged IL interval, strongly suggestive of atrioventricular makayla reentrant [...] as described ?? Kurt Larose MD, PhD, [facility] Cardiac Electrophysiology Mario Hallman MD CARDIAC SERVICES ORD ERABLES * CARDIAC CATHETERIZATION (06/09/2021 9:05 AM EDT) Anatomical Region Laterality Modality Other Narrative 06/09/2021 9:09 AM EDT ?[facility] ? Cardiac Catheterization/Intervention Report ? Patient Name: Neisha, Loida ? Procedure Date: 06/09/2021 ? A #: [id number] ? Primary Physician: Nilsa, Aaron Santana ? Case #: [id number] ? File Name: [id number] ? Catheterization Order Number: [id number] ? [facility] ? Final Report [place], [place] ? Patient Name: ? Loida Neisha ? ID#: ?[id number] ? : ?1970 ? Procedure Date: ? [...] was ?designated as ASA Class III. The [facility] clinical frailty scale is 2: Well. ? [...] procedure was Urgent. The indication for ?the collaborative physician visit is other indication. Chest pain symptom [...] Procedure Note Aaron Ash MD - 06/23/2021 [facility] Cardiac Catheterization/Intervention Report Patient Name: Loida Roque Procedure Date: 06/09/2021 A #: [id number] Primary Physician: Aaron Ash Case #: [id number] File Name: [id number] Catheterization Order Number: [id number] [facility] FinalReport [place], [place] Patient Name: Loida Roque ID#:[id number] :1970 Procedure Date: June 09, 2021 Case [...] patientwas designated as ASA Class III. The [facility] clinical frailty scale is 2:Well. Diagnostic [...] diagnostic procedure was Urgent. The indicationfor the collaborative physician visit is other indication. Chest pain symptomassessment [...] 3:37 AM EDT) ProBNP 911(H) <=124 pg/mL [facility] Blood Venous Draw / Unknown 06/09/2021 3:37 AM EDT 06/09/2021 3:59 AM EDT Narrative Resulting Agency Comment Spec In Lab Deja SANDRA CHEMISTRY ORDERABLES [facility] [place] [address] * Differential, Automated (06/09/2021 3:37 AM EDT) Pathologist [facility] Neutrophils % 64.9 % [facility] Neutr Abs (ANC) 5.12 1.70 - 6.10 x10(3)/[facility] Lymphocytes % 21.9 % [facility] Lymphocytes Abs 1.7 0.9 - 3.2 x10(3)/[facility] Monocytes % 8.6 % [facility] Monocyte Abs 0.7 0.3 - 0.9 x10(3)/[facility] Eosinophils % 3.4 % [facility] Eosinophils Abs 0.3 0.0 - 0.4 x10(3)/[facility] Basophils % 0.8 % [facility] Basophils Abs 0.1 0.0 - 0.1 x10(3)/[facility] Immature Gran % 0.40 % [facility] Comment: Immature granulocytes(IG's)percentage and absolute count will include metamyelocytes, myelocytes, and promyelocytes. Blood smears from CBCs yielding IG's will be scanned manually for concordance. If this scan disagrees with the automated IG or if promyelocytes are noted, a manual differential will be performed. Shonda Gran Abs 0.03 0.00 - 0.04 x10(3)/[facility] Blood 06/09/2021 3:37 AM EDT 06/09/2021 3:58 AM EDT Narrative Resulting Agency Comment Spec In Lab Deja SANDRA HEMATOLOGY ORDERABLE S [facility] [place] [address] * (ABNORMAL) Hemogram (06/09/2021 3:37 AM EDT) Pathologist [facility] WBC 7.9 4.0 - 9.5 x10(3)/[facility] RBC 4.88 4.00 - 5.21 x10(6)/[facility] Hemoglobin 15.2 11.7 - 15.5 g/dL [facility] Hematocrit 46.5(H) 35.7 - 45.8 % [facility] MCV 95.3(H) 82.6 - 94.4 fL [facility] MCH 31.1 27.1 - 32.0 pg [facility] MCHC 32.7 31.7 - 35.0 g/dL [facility] Platelets 334 145 - 357 x10(3)/[facility] RDWSD 49.2(H) 37.0 - 46.0 [facility] RDWCV 14.5(H) 11.5 - 14.1 % [facility] MPV 10.2 7.6 - 12.9 [facility] nRBC % Auto 0.0 % [facility] nRBC Abs Auto 0.000 0.000 - 0.000 x10(3)/[facility] Blood 06/09/2021 3:37 AM EDT 06/09/2021 3:58 AM EDT Narrative Resulting Agency Comment Spec In Lab Deja SANDRA HEMATOLOGY ORDERABLE S [facility] [place] [address] * (ABNORMAL) BMP w/fasting Glucose (06/09/2021 3:37 AM EDT) Pathologist [facility] Glucose Fasting 103(H) 65 - 99 mg/dL [facility] Comment: ?Fasting* Glucose Interpretive Criteria [...] of Diabetes Mellitus, Position Statement from the [place] [employer]. ??Diabetes Care, Volume 33, Supplement 1, Mar 2009 BUN 23(H) 8 - 18 mg/dL [facility] Creatinine 0.86 0.70 - 1.20 mg/dL [facility] Sodium 137 135 - 145 mmol/L [facility] Potassium 4.1 3.5 - 5.0 mmol/L [facility] Comment: Please note: ??Patients with WBC >100,000 may have falsely elevated Potassium levels. ??For accurate Potassium quantification in these patients send serum separator tube (gold top) for subsequent determinations. ??Contact the Clinical Chemistry Laboratory if there are any questions. Chloride 102 98 - 107 mmol/L [facility] CO2 22 22 - 31 mmol/L [facility] Anion Gap 13 5 - 15 mmol/L [facility] Calcium 9.3 8.5 - 10.5 mg/dL [facility] Estimated GFR 78 >=60 mL/min/1. 73 m?? [facility] Comment: This patient? s estimated [...] Hallman MD CHEMISTRY ORDERABLES Performing Organization Address [facility] Co de Phone Number [facility] [place] [address] * Heparin (unfractionated) Level (06/08/2021 4:07 PM EDT) Heparin UFH Level <0.04 IU/mL [facility] Comment: Heparin (anti-Xa) levels should [...] MD HEMATOLOGY ORDERABLE S Performing Organization Address [facility] Co de Phone Number [facility] [place] [address] * XR Chest PA & Lateral (Generic) [...] who have questions please contact the health family day care provider that requested your imaging first. [...] patients who have questions please contactthe health family day care provider that requested your imaging first. Electronically signed by: Magda Machado MD, [facility] ([phone]), at 06/08/2021 6:00 PM Mario Helisch MD IMG DX ORDERABLES * MRI Brain [...] who have questions please contact the health family day care provider that requested your imaging first. [...] patients who have questions please contactthe health family day care provider that requested your imaging first. Mario Hallman MD IMG MRI ORDERABLES * (ABNORMAL) CRP, acute inflammation (06/08/2021 11:58 AM EDT) Pathologist [facility] CRP 28.1(H) <=4.9 mg/L [facility] Blood 06/08/2021 11:5 8 AM EDT 06/08/2021 12:04 PM EDT Narrative Resulting Agency Comment Spec In Lab Mario Hallman MD CHEMISTRY ORDERABLES Performing Organization Address City/[facility]/ZIP Co de Phone Number [facility] [place] [address] * CK (06/08/2021 11:58 AM EDT) Pathologist [facility] CK, Total 30 0 - 160 unit/L [facility] Blood 06/08/2021 11:5 8 AM EDT 06/08/2021 12:04 PM EDT Narrative Resulting Agency Comment Spec In Lab Mario Hallman MD CHEMISTRY ORDERABLES Performing Organization Address [facility]/ZIP Co de Phone Number [facility] [place] [address] * (ABNORMAL) Sedimentation rate (06/08/2021 11:58 AM EDT) Pathologist [facility] Sed Rate 53(H) 2 - 39 mm/hr [facility] Comment: Effective February 15, 2019 new capillary photometric technology has resulted in a change in reference ranges. It is recommended that each ESR result be reviewed with its own age appropriate reference range. Blood 06/08/2021 11:5 8 AM EDT 06/08/2021 12:04 PM EDT Narrative Resulting Agency Comment Spec In Lab Mario Hallman MD HEMATOLOGY ORDERABLE S Performing Organization Address [facility] Co de Phone Number [facility] [place] [address] * Heparin (unfractionated) Level (06/08/2021 11:58 AM EDT) Heparin UFH Level 0.77 IU/mL [facility] Comment: Heparin (anti-Xa) levels should [...] MD HEMATOLOGY ORDERABLE S Performing Organization Address [facility]/ZIP Co de Phone Number [facility] [place] [address] * urine, qualitative ([facility]/NLH) (06/08/2021 11:51 AM EDT) Spec [place] UA 1.010 1.006 - 1.030 [facility] HCG Qual Negative [facility] Comment: Dilute urine samples can result in a false negative test. Repeat testing on a first morning sample or a plasma quantitative hCG measurement is recommended. Urine 06/08/2021 11:5 1 AM EDT 06/08/2021 12:32 PM EDT Narrative Resulting Agency Comment Spec In Lab Mario Hallman MD URINE ORDERABLES [facility] [place] [address] * ECHO COMPLETE W CONTRAST (06/08/2021 11:09 AM EDT) Anatomical Region Laterality Modality Other 06/08/2021 9:35 AM EDT Narrative 06/08/2021 12:42 PM EDT ?[facility] ? [facility] Center ?[address] ? [place] [address] ?Voice: ?Fax: ? Echocardiogram Report Name: LOIDA ROQUE ? Study Date: 06/08/2021 09:35 AMBP: 109/69 mmHg ? Patient Location: [facility]^432^A : 1970 ? Height: 163 cm ? Account: [id number] Age: 51 yrs ? Weight: 95 kg Gender: Female ?BSA: 2.0 m2 Ordering Physician: DONALD Referring Physician: AJ HARTMAN Performed By: Aaron Herr RDCS Reason For Study: NSTEMI (non-ST elevated myocardial infarction) Exam Location: [facility]. Interpretation Summary 1. Left ventricle is [...] significant change from prior in 08/2019. Procedure Complete-42473. Image enhancement Definity was used for left ventricular opacification. Suboptimal quality. This study is limited because of body habitus. There is normal sinus rhythm. Left Ventricle Left ventricle is of normal size. Wall thickness is normal. The left ventricular ejection fraction is 61% by Reyse's biplane. Left ventricular systolic function is normal. [...] Procedure Note Kai Haider MD - 06/08/2021 [place] [address] Voice: Fax: Echocardiogram Report Name: LOIDA ROQUE Study Date: 209:35 AMBP: 109/69 mmHg Patient Location:[place] [address]^A : 1970 Height: 163 cm Account: [id number] Age: 51 yrs Weight: 95 kg Gender: Female BSA: 2.0 m2 Ordering Physician: DONALD Referring Physician: AJ HARTMAN Performed By: Aaron Herr RDCS Reason For Study: NSTEMI (non-ST elevated myocardial infarction) Exam Location: [facility]. Interpretation Summary 1. Left ventricle is [...] significant change from prior in 08/2019. Procedure Complete-72551. Image enhancement Definity was used for left [...] EDT) Heparin UFH Level 1.20(Crit ical) IU/mL [facility] Comment: Critical Result called by [...] MD HEMATOLOGY ORDERABLE S Performing Organization Address City/[facility]/ZIP Co de Phone Number [facility] [place] [address] * (ABNORMAL) Differential, Automated (06/08/2021 4:41 AM EDT) Neutrophils % 71.8 % [facility] Neutr Abs (ANC) 8.09(H) 1.70 - 6.10 x10(3)/ L [facility] Lymphocytes % 18.0 % [facility] Lymphocytes Abs 2.0 0.9 - 3.2 x10(3)/[facility] LABORATORY Monocytes % 5.7 % [facility] Monocyte Abs 0.6 0.3 - 0.9 x10(3)/[facility] LABORATORY Eosinophils % 3.5 % [facility] Eosinophils Abs 0.4 0.0 - 0.4 x10(3)/[facility] LABORATORY Basophils % 0.6 % [facility] Basophils Abs 0.1 0.0 - 0.1 x10(3)/[facility] LABORATORY Immature Gran % 0.40 % [facility] Comment: Immature granulocytes(IG's)percentage and absolute count will include metamyelocytes, myelocytes, and promyelocytes. Blood smears from CBCs yielding IG's will be scanned manually for concordance. If this scan disagrees with the automated IG or if promyelocytes are noted, a manual differential will be performed. Shonda Gran Abs 0.05(H) 0.00 - 0.04 x10(3)/ L [facility] Blood 06/08/2021 4:41 AM EDT 06/08/2021 5:11 AM EDT Narrative Resulting Agency Comment Spec In Lab Deja SANDRA HEMATOLOGY ORDERABLE S Performing Organization Address City/[facility]/ZIP Co de Phone Number [facility] [place] [address] * (ABNORMAL) Hemogram (06/08/2021 4:41 AM EDT) WBC 11.3(H) 4.0 - 9.5 x10(3)/[facility] LABORATORY RBC 4.64 4.00 - 5.21 x10(6)/[facility] LABORATORY Hemoglobin 13.9 11.7 - 15.5 g/dL [facility] Hematocrit 43.0 35.7 - 45.8 % [facility] MCV 92.7 82.6 - 94.4 [facility] LABORATORY MCH 30.0 27.1 - 32.0 pg [facility] MCHC 32.3 31.7 - 35.0 g/dL [facility] Platelets 312 145 - 357 x10(3)/[facility] LABORATORY RDWSD 47.4(H) 37.0 - 46.0 [facility] LABORATORY RDWCV 14.3(H) 11.5 - 14.1 % [facility] MPV 10.8 7.6 - 12.9 [facility] LABORATORY nRBC % Auto 0.0 % [facility] nRBC Abs Auto 0.000 0.000 - 0.000 x10(3)/[facility] LABORATORY Blood 06/08/2021 4:41 AM EDT 06/08/2021 5:11 AM EDT Narrative Resulting Agency Comment Spec In Lab Deja SANDRA HEMATOLOGY ORDERABLE S [facility] [place] [address] * (ABNORMAL) Heparin (unfractionated) Level (06/08/2021 4:41 AM EDT) Heparin UFH Level 1.06(Crit ical) IU/mL [facility] Comment: Critical Result called by [...] MD HEMATOLOGY ORDERABLE S Performing Organization Address City/State/[facility] Co de Phone Number [facility] [place] [address] * (ABNORMAL) BMP w/fasting Glucose (06/08/2021 4:41 AM EDT) Glucose Fasting 95 65 - 99 mg/dL [facility] Comment: ?Fasting* Glucose Interpretive Criteria [...] of Diabetes Mellitus, Position Statement from the [place] [employer]. ??Diabetes Care, Volume 33, Supplement 1, Mar 2009 BUN 21(H) 8 - 18 mg/dL [facility] Creatinine 0.87 0.70 - 1.20 mg/dL [facility] Sodium 138 135 - 145 mmol/L [facility] Potassium 4.1 3.5 - 5.0 mmol/L [facility] Comment: Please note: ??Patients with WBC >100,000 may have falsely elevated Potassium levels. ??For accurate Potassium quantification in these patients send serum separator tube (gold top) for subsequent determinations. ??Contact the Clinical Chemistry Laboratory if there are any questions. Chloride 103 98 - 107 mmol/L [facility] CO2 22 22 - 31 mmol/L [facility] Anion Gap 13 5 - 15 mmol/L [facility] Calcium 8.7 8.5 - 10.5 mg/dL [facility] Estimated GFR 77 >=60 mL/min/1. 73 m?? [facility] Comment: This patient? s estimated [...] In Lab Mario Hallman MD CHEMISTRY ORDERABLES [facility] [place] [address] * Troponin (06/08/2021 4:41 AM EDT) Troponin-T <0.01 0.00 - 0.00 ng/mL [facility] Comment: The 99th percentile for Troponin T is less than 0.01 ng/mL, any detectable cTnT concentration using this assay should be considered elevated. According to the third universal definition of myocardial infarction the following criteria with a clinical presentation consistent with acute myocardial ischemia meets the diagnosis for a myocardial infarction (OR). Detection of a rise and/or fall of cTnT, with at least one value greater than the 99th percentile (> or = 0.01) and with at least one of the following ?? Symptoms of ischemia ?? New or presumed new significant OL-sjxbghu-Y wave (ST-T) changes or new left bundle [...] additional sample may be indicated. Reference: Third [place] Definition of Myocardial Infarction. Journal of the [place] [employer] 2012;60:1581-98 Blood 06/08/2021 4:41 AM EDT 06/08/2021 5:12 AM EDT Narrative Resulting Agency Comment Spec In Lab Mario Hallman MD CHEMISTRY ORDERABLES [facility] [place] [address] * Heparin (unfractionated) Level (06/07/2021 9:55 PM EDT) Heparin UFH Level 0.08 IU/mL [facility] Comment: Heparin (anti-Xa) levels should [...] Lab Mario Hallman MD HEMATOLOGY ORDERABLE S [facility] [place] [address] * (ABNORMAL) pro-Brain Natriuretic Peptide (06/07/2021 5:26 PM EDT) ProBNP 2,701(H) <=124 pg/mL [facility] Blood Venous Draw / Unknown 06/07/2021 5:26 PM EDT 06/07/2021 5:44 PM EDT Narrative Resulting Agency Comment Spec In Lab Deja SANDRA CHEMISTRY ORDERABLES Performing Organization Address City/[facility]/ZIP Co de Phone Number [facility] [place] [address] * (ABNORMAL) Differential, Automated (06/07/2021 5:26 PM EDT) Neutrophils % 74.6 % [facility] Neutr Abs (ANC) 8.97(H) 1.70 - 6.10 x10(3)/mc L [facility] Lymphocytes % 15.9 % [facility] Lymphocytes Abs 1.9 0.9 - 3.2 x10(3)/mc L [facility] Monocytes % 6.0 % [facility] Monocyte Abs 0.7 0.3 - 0.9 x10(3)/mc L [facility] Eosinophils % 2.6 % [facility] Eosinophils Abs 0.3 0.0 - 0.4 x10(3)/mc L [facility] Basophils % 0.5 % [facility] Basophils Abs 0.1 0.0 - 0.1 x10(3)/mc L [facility] Immature Gran % 0.40 % [facility] Comment: Immature granulocytes(IG's)percentage and absolute count will include metamyelocytes, myelocytes, and promyelocytes. Blood smears from CBCs yielding IG's will be scanned manually for concordance. If this scan disagrees with the automated IG or if promyelocytes are noted, a manual differential will be performed. Shonda Gran Abs 0.05(H) 0.00 - 0.04 x10(3)/mc L [facility] Blood 06/07/2021 5:26 PM EDT 06/07/2021 5:36 PM EDT Narrative Resulting Agency Comment Spec In Lab Deja SANDRA HEMATOLOGY ORDERABLE S Performing Organization Address City/State/[facility] Co de Phone Number [facility] [place] [address] * (ABNORMAL) Hemogram (06/07/2021 5:26 PM EDT) WBC 12.0(H) 4.0 - 9.5 x10(3)/[facility] LABORATORY RBC 4.72 4.00 - 5.21 x10(6)/[facility] LABORATORY Hemoglobin 14.5 11.7 - 15.5 g/dL [facility] Hematocrit 44.0 35.7 - 45.8 % [facility] MCV 93.2 82.6 - 94.4 fL [facility] MCH 30.7 27.1 - 32.0 pg [facility] MCHC 33.0 31.7 - 35.0 g/dL [facility] Platelets 346 145 - 357 x10(3)/[facility] RDWSD 47.2(H) 37.0 - 46.0 fL [facility] RDWCV 14.4(H) 11.5 - 14.1 % [facility] MPV 10.6 7.6 - 12.9 fL [facility] nRBC % Auto 0.0 % [facility] nRBC Abs Auto 0.000 0.000 - 0.000 x10(3)/mcL [facility] Blood 06/07/2021 5:26 PM EDT 06/07/2021 5:36 PM EDT Narrative Resulting Agency Comment Spec In Lab Deja SANDRA HEMATOLOGY ORDERABLE S [facility] [place] [address] * BMP w/fasting Glucose (06/07/2021 5:26 PM EDT) Glucose Fasting 90 65 - 99 mg/dL [facility] Comment: ?Fasting* Glucose Interpretive Criteria [...] of Diabetes Mellitus, Position Statement from the [place] Diabetes Association. ??Diabetes Care, Volume 33, Supplement 1, Mar 2009 BUN 18 8 - 18 mg/dL [facility] Creatinine 1.07 0.70 - 1.20 mg/dL [facility] Sodium 137 135 - 145 mmol/L [facility] Potassium 4.3 3.5 - 5.0 mmol/L [facility] Comment: Please note: ??Patients with WBC >100,000 may have falsely elevated Potassium levels. ??For accurate Potassium quantification in these patients send serum separator tube (gold top) for subsequent determinations. ??Contact the Clinical Chemistry Laboratory if there are any questions. Chloride 101 98 - 107 mmol/L [facility] CO2 24 22 - 31 mmol/L [facility] Anion Gap 12 5 - 15 mmol/L [facility] Calcium 9.1 8.5 - 10.5 mg/dL [facility] Estimated GFR 60 >=60 mL/min/1. 73 m?? [facility] Comment: This patient? s estimated [...] Hallman MD CHEMISTRY ORDERABLES Performing Organization Address [facility]/ZIP Co de Phone Number [facility] [place] [address] * T3 Total (06/07/2021 5:26 PM EDT) T3, Total 134 80 - 200 ng/dL [facility] Blood 06/07/2021 5:26 PM EDT 06/07/2021 5:36 PM EDT Narrative Resulting Agency Comment Spec In Lab Mario Hallman MD CHEMISTRY ORDERABLES Performing Organization Address [facility]/ZIP Co de Phone Number [facility] [place] [address] * T4 Total (06/07/2021 5:26 PM EDT) T4, total 6.8 5.3 - 11.6 mcg/dL [facility] Comment: Reference Interval (mcg/dL): Females: ??First Trimester: 6.3-13.5 ??Second Trimester: 7.1-14.3 ??Third Trimester: 6.9-14.1 Blood 06/07/2021 5:26 PM EDT 06/07/2021 5:36 PM EDT Narrative Resulting Agency Comment Spec In Lab Mario Hallman MD CHEMISTRY ORDERABLES Performing Organization Address City/[facility]/ZIP Co de Phone Number [facility] [place] [address] * (ABNORMAL) TSH (06/07/2021 5:26 PM EDT) TSH 5.83(H) 0.27 - 4.20 mcIU/mL [facility] Comment: Reference Interval (mcIU/mL): Females: ??First Trimester: 0.23-3.88 ??Second Trimester: 0.22-3.90 ??Third Trimester: 0.44-4.66 Blood 06/07/2021 5:26 PM EDT 06/07/2021 5:36 PM EDT Narrative Resulting Agency Comment Spec In Lab Mario Hallman MD CHEMISTRY ORDERABLES Performing Organization Address City/[facility]/ZIP Co de Phone Number [facility] [place] [address] * Lipase (06/07/2021 5:26 PM EDT) Lipase 18 0 - 60 unit/L [facility] Blood 06/07/2021 5:26 PM EDT 06/07/2021 5:36 PM EDT Narrative Resulting Agency Comment Spec In Lab Mario Hallman MD CHEMISTRY ORDERABLES Performing Organization Address City/[facility]/ZIP Co de Phone Number [facility] [place] [address] * Amylase (06/07/2021 5:26 PM EDT) Amylase 39 28 - 100 unit/L [facility] Blood 06/07/2021 5:26 PM EDT 06/07/2021 5:36 PM EDT Narrative Resulting Agency Comment Spec In Lab Mario Hallman MD CHEMISTRY ORDERABLES [facility] [place] [address] * Lipid Panel (Reflex Direct LDL) (06/07/2021 5:26 PM EDT) Chol, Total 164 mg/dL [facility] Comment: Lower Risk: <200 mg/dL Average Risk: 200-239 mg/dL Higher Risk: >ez=999 mg/dL Triglycerides 144 mg/dL [facility] Comment: Average Risk/Lower Risk: <150 mg/dL Borderline High Risk: 150-199 mg/dL High Risk: 200-499 mg/dL Very High Risk: >ot=090 mg/dL HDL 44 mg/dL [facility] Comment: Males: ?? Higher Risk: <40 mg/dL Females: ?? Higher Risk: <50 mg/dL LDL Cholesterol 91 mg/dL [facility] Comment: Lowest Risk: <100 mg/dL Lower Risk: 100-129 mg/dL Borderline High Risk: 130-159 mg/dL High Risk: 160-189 mg/dL Very High Risk: >go=527 mg/dL Chol/HDL Ratio 3.7 ratio [facility] Lipid Interpretation See Note [facility] Comment: Lipid management should be guided by a patient? s ASCVD risk, goals and preferences. ACC/AHA Guidelines recommend high intensity statin if clinical ASCVD or LDL greater than or equal to 190 mg/dL. http://tinyurl.com/LTH-KUW-Rxiufgpxp Adults aged 40-75 with LDL 70-189 mg/dL should have their 10 year ASCVD risk estimated with the ACC/AHA ASCVD risk news video editor http://tools.acc.org/DZWCL-Elqz-Gkevzhrmd/ Statin should be discussed if risk greater [...] Hallman MD CHEMISTRY ORDERABLES Performing Organization Address City/[facility] Co de Phone Number [facility] [place] [address] * CK (06/07/2021 5:26 PM EDT) CK, Total 33 0 - 160 unit/L [facility] Blood 06/07/2021 5:26 PM EDT 06/07/2021 5:36 PM EDT Narrative Resulting Agency Comment Spec In Lab Mario Hallman MD CHEMISTRY ORDERABLES Performing Organization Address [facility] Co de Phone Number [facility] [place] [address] * Hemoglobin A1c (06/07/2021 5:04 PM EDT) [facility] Hemoglobin A1C 5.6 4.3 - 5.6 % [facility] Comment: Reference Range: 4.3 - [...] 1, S67-74 Est Avg Gluc 114 mg/dL [facility] Comment: eAG equivalents for [...] into estimated average glucose values. ??Diabetes Care 2008:31(8):6295-1764. Blood 06/07/2021 5:04 PM EDT 06/07/2021 5:36 PM EDT Narrative Resulting Agency Comment Spec In Lab Mario Hallman MD CHEMISTRY ORDERABLES [facility] [place] [address] * Troponin (06/07/2021 5:04 PM EDT) Troponin-T <0.01 0.00 - 0.00 ng/mL [facility] Comment: The 99th percentile for Troponin T is less than 0.01 ng/mL, any detectable cTnT concentration using this assay should be considered elevated. According to the third universal definition of myocardial infarction the following criteria with a clinical presentation consistent with acute myocardial ischemia meets the diagnosis for a myocardial infarction (OR). Detection of a rise and/or fall of cTnT, with at least one value greater than the 99th percentile (> or = 0.01) and with at least one of the following ?? Symptoms of ischemia ?? New or presumed new significant RF-swpgagd-J wave (ST-T) changes or new left bundle [...] additional sample may be indicated. Reference: Third [place] Definition of Myocardial Infarction. Journal of the [place] [employer]iology 2012;60:1581-98 Blood 06/07/2021 5:04 PM EDT 06/07/2021 5:36 PM EDT Narrative Resulting Agency Comment Spec In Lab Mario Hallman MD CHEMISTRY ORDERABLES Performing Organization Address [facility] Co de Phone Number [facility] [place] [address] * EKG 12 Lead (06/07/2021 4:33 PM EDT) Ventricular rate 54 BPM MUSE SYSTEM Atrial Rate 54 BPM MUSE SYSTEM P-R Interval 166 ms MUSE SYSTEM QRS Duration 86 ms MUSE SYSTEM Q-T Interval 514 ms MUSE SYSTEM QTC Calculated (Bezet) 487 ms MUSE SYSTEM Calculated P [place] 30 degrees MUSE SYSTEM Calculated R [place] 22 degrees MUSE SYSTEM Calculated T [place] 18 degrees MUSE SYSTEM INTERPRETATION Sinus bradycardia Left atrial enlargement Cannot rule out Lateral infarct , age undetermined Abnormal ECG When compared with ECG of 31-AUG-2019 07:05, No significant change was found Confirmed by MD Dalia, Willy Huerta ([id number]) on 06/09/2021 4:36:27 PM MUSE SYSTEM 06/07/2021 4:33 PM EDT 06/09/2021 4:36 PM EDT Mario Hallman MD ECG ORDERABLES Performing Organization Address [facility] Co de Phone Number MUSE SYSTEM * COVID-19 PCR (06/07/2021 4:30 PM EDT) SARS-CoV-2 RNA PCR Not Detected Not Detected [facility] Comment: This result should be [...] using the Simplexa COVID-19 Direct Assay by [employer] as authorized by the FDA issued Emergency [...] Department of Pathology and Laboratory Medicine at [facility], certified under the Clinical Laboratory Improvement [...] fact sheets at the following FDA website: https://www.fda.gov/medical-devices/sikpilkaqvn-kxxxrcp-4813-ejpje-63-ovgcvckvk- use-a lzwijkkciixad-uupyaty-wvujgyt/aucvp-sxdlcxpskuh-jxhc SARS-CoV-2 Source [employer] Swab MA [facility] Nasopharyngeal Swab 06/08/19 4:30 PM EDT 06/07/2021 4:45 PM EDT Comment:Symptoms->Surveillan ce Narrative Resulting Agency Comment Spec In Lab Mario Hallman MD MICROBIOLOGY - GENER AL ORDERABLES Performing Organization Address City/State/[facility] Co de Phone Number [facility] [place] [address] documented in this encounter Visit Diagnoses Not [...] 75 mg, Oral, DAILY, First dose on [place] 06/08/21 at 0900, Until Discontinued, Routine Given 06/08/2021 9:08 AM EDT [address] (Cymbalta) capsule 60 mg 60 mg, Oral, DAILY, First dose on 06/07/21 at 1845, Until Discontinued, Routine Given 06/08/2021 9:02 PM EDT 60 mg Given 06/07/2021 9:00 PM EDT 60 mg empagliflozin (Jardiance) Tab 10 mg 10 mg, Oral, DAILY, First dose on [place] 06/08/21 at 1545, Until Discontinued, Routine Given 06/09/2021 9:40 AM EDT 10 mg Given 06/08/2021 5:17 PM EDT 10 mg fentaNYL (PF) (50 mcg/mL) injection 25 mcg 25 mcg, Intravenous, Administer over 4 Hours, EVERY 30 MIN PRN, 4 doses, Starting on 06/09/21 at 0859, Until Wed06/09/21 at 1531, Pain, sheath removal, May repeat once while in Cath Recovery Unit , Cath (Recovery-Hospital Unit), Routine furosemide (Lasix) (10 mg/mL) injection 40 mg 40 mg, Intravenous, ONCE, 1 dose, On [place] 06/08/21 at 1545 Given 06/08/2021 5:01 PM EDT 40 mg furosemide (Lasix) tablet 20 mg 20 mg, Oral, DAILY, First dose on [facility] 06/07/21 at 1845, Until Discontinued, [...] - Reason: Transfer to a Procedural area)0929 ([facility] Unhold - Provider: Admin Adt) budesonide-formoteroL (Symbicort) [...] area)0900 (Automatically Held - Provider: Admin Adt)0929 ([facility] Unhold - Provider: Admin Adt) [...] (Given - Provider: Colette Medina RN) 0853 ([facility] Hold - Provider: Admin Adt - Reason: Transfer to a Procedural area)0929 ([facility] Unhold - Provider: Admin Adt) empagliflozin (Jardiance) Tab 10 mg 10 mg, Oral, DAILY, First dose on 06/08/21 at 1545, Until Discontinued, Routine 1717 (Given - Provider: Jo Ann Maldonado RN - Comment: awaiting medication from pharmacy) 0853 ([facility] Hold - Provider: Admin Adt - Reason: Transfer to a Procedural area)0900 (Automatically Held - Provider: Admin Adt)0929 ([facility] Unhold - Provider: Admin Adt)0940 [...] she only takes this as needed.) 0853 ([facility] Hold - Provider: Admin Adt - Reason: Transfer to a Procedural area)0900 (Automatically Held - Provider: Admin Adt)0929 ([facility] Unhold - Provider: Admin Adt) [...] - Provider: Jo Ann Maldonado RN) 0853 ([facility] Hold - Provider: Admin Adt - Reason: Transfer to a Procedural area)0900 (Automatically Held - Provider: Admin Adt)0929 ([facility] Unhold - Provider: Admin Adt)0939 (Given - Provider: Jo Ann Maldonado RN) gabapentin (Neurontin) capsule 300 mg 300 mg, Oral, 2 TIMES DAILY, First dose on 06/07/21 at 2100, Until Discontinued, Routine 2026 (Given - Provider: Olive Anne RN) 0908 (Given - Provider: Jo Ann Maldonado RN)210 (Given - Provider: Colette Medina RN) 0853 ([facility] Hold - Provider: Admin Adt [...] - Provider: Jo Ann Maldonado RN) 0853 ([facility] Hold - Provider: Admin Adt - Reason: Transfer to a Procedural area)0900 (Automatically Held - Provider: Admin Adt)0929 ([facility] Unhold - Provider: Admin Adt)0939 [...] takes this as needed for allergies.) 0853 ([facility] Hold - Provider: Admin Adt - Reason: Transfer to a Procedural area)0900 (Not Given - Provider: Jo Ann Maldonado RN - Reason: Patient/family refused - Comment: only takes as needed)0929 ([facility] Unhold - Provider: Admin Adt) [...] not met - Comment: HR 56) 0853 ([facility] Hold - Provider: Admin Adt - Reason: Transfer to a Procedural area)0900 (Not Given - Provider: Jo Ann Maldonado RN - Reason: Order parameters not met - Comment: HR 48)0929 ([facility] Unhold - Provider: Admin Adt) montelukast (Singulair) tablet 10 mg 10 mg, Oral, NIGHTLY, First dose on 06/07/21 at 2100, Until Discontinued 2025 (Given - Provider: Olive Anne RN) 2058 (Given - Provider: Colette Medina, ERWIN) 0853 ([facility] Hold - Provider: Admin Adt - Reason: Transfer to a Procedural area)0929 ([facility] Unhold - Provider: Admin Adt) rOPINIRole (Requip) tablet 1 mg 1 mg, Oral, NIGHTLY, First dose on 06/07/21 at 2100, Until Discontinued, Routine 2025 (Given - Provider: Olive Anne RN) 2058 (Given - Provider: Colette Medina, ERWIN) 0853 ([facility] Hold - Provider: Admin Adt - Reason: Transfer to a Procedural area)0929 ([facility] Unhold - Provider: Admin Adt) topiramate (Topamax) tablet 50 mg 50 mg, Oral, 2 TIMES DAILY, First dose on 06/07/21 at 2100, Until Discontinued, Routine 2024 (Given - Provider: Olive Anne RN) 1009 (Given - Provider: Jo Ann Maldonado RN - Comment: awaiting medication from pharmacy)2110 (Given - Provider: Colette Medina RN) 0853 ([facility] Hold - Provider: Admin Adt - Reason: Transfer to a Procedural area)0929 ([facility] Unhold - Provider: Admin Adt)1254 (Given - Provider: Jo Ann Maldonado RN - Comment: awaiting medication from pharmacy) traZODone (Desyrel) tablet 100 mg 100 mg, Oral, NIGHTLY, First dose (after last reorder) on 06/07/21 at 2114, Until Discontinued, Routine 2099 (Given - Provider: Olive Anne RN) 2099 (Given - Provider: Colette Medina RN) 0853 ([facility] Hold - Provider: Admin Adt - Reason: Transfer to a Procedural area)0929 ([facility] Unhold - Provider: Admin Adt) [...] 2107, Until 06/09/21 at 1531, Pain, Routine 2115 (Given - Provider: Colette Medina RN) 0853 [...] Routine documented in this encounter Care Teams [employer] Crew[employer] Relationship Specialty Start Date End Date Polo Pearce PA [address] [place] [address] PCP - General Internal Medicine 06/09/21 documented as of this encounter
--- OUTSIDE RECORDS SUMMARY | 2023-10-02 22:48 | XMS_ITS | Encounter Summary ---
Author Organization [facility] [place] [address] Care Team Providers Care Large Animal Veterinarian Name Role Phone Polo Pearce Primary Care Provider [phone] Reason for Referral * Consultation (Routine) - Closed Specialty Diagnoses / Procedures Referred By Contact Referred To Contact Electrophysiology / Cardiology Diagnoses Supraventricular tachycardia evaluation for AVNRT ablation due to symptomatic SVT with myocardial injury Sandy Serna MD [facility] [place] [address] [facility] Cardiology [address] [place] [phone] Referral ID Status Reason Start Date Expiration Date V isits Requested Visits Authorized [id number] Closed Consult, Test & Treat 06/14/2021 06/14/2022 1 1 Reason for Visit * Auth/Cert Specialty Diagnoses / Procedures Referred By Jayant harris Referred To Contact Diagnoses NSTEMI (non-ST elevated myocardial infarction) NSTEMI Procedures EMERGENCY IPI Referral ID Status Reason Start Date Expiration Date Visits Re quested Visits Authorized [id number] 1 1 Encounter Details Date Type Department Care Team (Latest Contact Info) Description 06/13/2021 12:35 PM EDT - 06/14/2021 1:22 PM EDT Hospital Encounter [place] [address] Jose Rodrigues MD [facility] [place] [address] Chest pain, unspecified type; Supraventricular tachycardia; Chest [...] depressions on EKG. Indira was transferred to [facility] for further evaluation. ?? Of note, the patient was just released from [facility] for chest pain [...] at 0.04 consistent with myocardial injury pattern. [facility] was not pursued as the patient was CP free, has suspected microvascular disease from [facility] 18 months ago and episode was [...] 8:20 AM Jaspreet Kinsey MD Cardiology at [place] Arrive at: [facility] [address] [phone] Future Orders Complete By Expires NM PET CT Cardiac Pharmacologic Stress and Rest [[id number] Custom] 06/14/2021 10/14/2021 Process Instructions: Scheduling Instructions: Questions: Where will study be performed?: [facility] Radiology Reason for exam and clinical history: concern for microvascular disease vs CAD Clinical information / chavis questions for radiologist: Is the patient ?: No Initial treatment or subsequent treatment?: Stat read required?: Does patient require sedation?: GA rationale: Date of injury if applicable: Requested Time: NM PET CT Cardiac Pharmacologic Stress CT Component [[id number] Custom] 06/14/2021 10/14/2021 Process Instructions: Scheduling Instructions: Questions: Where will study be performed?: [facility] Radiology Reason for exam and clinical history: Study performed for attenuation correction of the stress test. Nuclear Pharmacologic Stress Cardiology (PET CT Mobile) [[id number] CPT(R)] 06/14/2021 10/14/2021 Process Instructions: Order [id number], NM myocardial perfussion scan, pharmacologic, should also be placed for the radiologyportion of the test. Scheduling Instructions: Cardiac perfusion (Stress and Lexiscan) - NPO after midnight, medication instructions per referringphysician. Avoidance of all caffeinated and decaffeinated products (No coffee, teas, chocolate, or cola drinks) for at least 12 hours prior to exam. Questions: Where will study be performed?: [facility] Clinics Does the patient [...] Center 07/23/2021 8:20 AM Jaspreet Kinsey MD [facility] Cardio [facility] Your Inpatient Medical Team at [facility] Name(s) of your inpatient provider(s): Attending - Jose Rodrigues MD Fellow - Brody Bernard MD Resident - Sandy Serna MD Tabular Typist - Sha Vale MD Your Primary Care Provider: JOCY Franco [phone] For questions regarding this document or issues relating to this hospitalization on the Medical Service, please contact your inpatient physician through the [facility] Sample Examiner . Issues afterhours and on weekends will be handled by the Hospitalist staff on-call. For questions regarding this document or issues relating to this hospitalization on the Medical Service, please contact your inpatient physician through the [facility] Sample Examiner . Issues afterhours and on weekends will be handled by the Pattern Marking Supervisor staff on-call. Signed: Sandy Serna Internal Medicine PGY-3 Cardiovascular Medicine S2 Team Pager [phone] documented in this encounter Discharge Instructions * [...] Center 07/23/2021 8:20 AM Jaspreet Kinsey MD [facility] Cardio [facility] Your Inpatient Medical Team at [facility] Name(s) of your inpatient provider(s): Attending - Jose Rodrigues MD Fellow - Brody Bernard MD Resident - Sandy Serna MD Tabular Typist - Sha Vale MD Your Primary Care Provider: JOCY Franco [phone] For questions regarding this document or issues relating to this hospitalization on the Medical Service, please contact your inpatient physician through the [facility] Sample Examiner . Issues afterhours and on weekends will [...] as needed. fluticasone propionate (FLONASE) 50 mcg/actuation [place], Suspension 1 spray by Each Nare route [...] FORWARD: possible cardiac cath pain management monitor conveyor monitor I/O discharge planning as appropriate INDIVIDUALIZED FALL [...] JOHN PCP: JOCY Franco PCP phone #: [phone] ID/Chief Complaint: Indira Roque is a 51 y.o. with hx of HFpEF, MARYLOU, who is admitted from [facility] with associated chest pain last night History [...] depressions on EKG. Indira was transferred to [facility] for further evaluation. Of note, the patient was just released from [facility] for chest pain [...] DAILY ??? fluticasone propionate (FLONASE) 50 mcg/actuation [place], Suspension 1 spray, Each Nare, DAILY ??? [...] ??? Clobetasol Rash Family History: Father from [place] s/p multiple coronary stents at Social History: [...] at coronary flow reserve Jose Rodrigues MD, [facility] Section of Cardiovascular Medicine [facility] Wallpaper Printer Helpertranscription [facility] at [facility] documented in this encounter Plan of Treatment Upcoming Encounters Date Type Department Care Team (Late st Contact Info) Description 10/08/2023 8:30 AM EDT Tech Visit Vascular Lab at [place] [phone] Channing Escobedo [place] 10/08/2023 9:30 AM EDT Office Visit [place] [address] MD [facility] [place] [address] 10/21/2023 10:30 AM EDT Appointment Nuclear Medicine at [place] [phone] [place] [address] 10/21/2023 11:30 AM EDT Appoint[place] [address] [place] [address] 10/21/2023 12:30 PM EDT Appoint[place] [phone] [facility] [place] [address] 10/21/2023 1:30 PM EDT Appointment [place] [phone] [facility] [place] [address] 10/21/2023 2:30 PM EDT Appointment [place] [phone] Mary Reyes APRN [facility] [place] [address] 10/26/2023 4:00 PM EDT Office Visit Cardiology at [address] [phone] Jaspreet Kinsey MD [facility] [place] [address] 10/28/2023 9:00 AM EDT Office Visit [place]ology [place] [address] 10/29/2023 10:00 AM EDT Clinical Support [place] [address] 10/29/2023 10:15 AM EDT Procedure visit [place] [address] 11/01/2023 5:00 PM EDT Office Visit Gastroenterology at [place] [phone] Selene Browning, PhD [facility] [place] [address] 11/22/2023 4:40 PM EDT Office Visit Cardiology at [address] [phone] Porsha Mcdaniels MD [facility] [place] [address] 12/13/2023 10:00 AM EDT Clinical Support [place] [phone] [facility] [place] [address] Scheduled Referrals Name Type Priority Associated Diagnoses [...] Chest pain, unspecified type RAPID COVID-19 PCR ([facility]/APD/[facility]) Routine 06/13/2021 1:09 PM EDT documented in this encounter Results * Magnesium (06/14/2021 5:13 AM EDT) Magnesium 0.90 0.69 - 1.07 mmol/L [facility] Blood Venous Draw / Unknown 06/14/2021 5:13 AM EDT 06/14/2021 5:25 AM EDT Narrative Resulting Agency Comment Spec In Lab Sandy Serna MD CHEMISTRY ORDER ARABELLA [facility] [place] [address] * (ABNORMAL) Troponin (06/14/2021 5:13 AM EDT) Troponin-T 0.04(H) 0.00 - 0.00 ng/mL [facility] Comment: The 99th percentile for Troponin T is less than 0.01 ng/mL, any detectable cTnT concentration using this assay should be considered elevated. According to the third universal definition of myocardial infarction the following criteria with a clinical presentation consistent with acute myocardial ischemia meets the diagnosis for a myocardial infarction ([place]). Detection of a rise and/or fall of cTnT, with at least one value greater than the 99th percentile (> or = 0.01) and with at least one of the following ?? Symptoms of ischemia ?? New or presumed new significant BA-tgrzbkj-F wave (ST-T) changes or new left bundle [...] additional sample may be indicated. Reference: Third Swatara Definition of Myocardial Infarction. Journal of the [place] [employer] 2012;60:1581-98 Blood 06/14/2021 5:13 AM EDT 06/14/2021 5:19 AM EDT Narrative Resulting Agency Comment Spec In Lab Jose Rodrigues MD CHEMISTRY ORDERABLES [facility] [place] [address] * Heparin (unfractionated) Level (06/14/2021 5:13 AM EDT) Heparin UFH Level 0.66 IU/mL [facility] Comment: Heparin (anti-Xa) levels should [...] Lab Jose Rodrigues MD HEMATOLOGY ORDERABLE S [facility] [place] [address] * Differential, Automated (06/14/2021 5:13 AM EDT) Neutrophils % 62.5 % [facility]ORY Neutr Abs (ANC) 4.36 1.70 - 6.10 x10(3)/[facility] LABORATORY Lymphocytes % 24.1 % [facility] Lymphocytes Abs 1.7 0.9 - 3.2 x10(3)/[facility] LABORATORY Monocytes % 9.2 % [facility] Monocyte Abs 0.6 0.3 - 0.9 x10(3)/[facility] LABOR[facility]ORY Eosinophils % 2.9 % [facility] Eosinophils Abs 0.2 0.0 - 0.4 x10(3)/[facility] LABORATORY Basophils % 1.0 % [facility] Basophils Abs 0.1 0.0 - 0.1 x10(3)/[facility] LABORATORY Immature Gran % 0.30 % [facility] Comment: Immature granulocytes(IG's)percentage and absolute count will include metamyelocytes, myelocytes, and promyelocytes. Blood smears from CBCs yielding IG's will be scanned manually for concordance. If this scan disagrees with the automated IG or if promyelocytes are noted, a manual differential will be performed. Shonda Gran Abs 0.02 0.00 - 0.04 x10(3)/[facility]ORY Blood 06/14/2021 5:13 AM EDT 06/14/2021 5:19 AM EDT Narrative Resulting Agency Comment Spec In Lab Sha Vale MD HEMATOLOGY ORDERABLE S Performing Organization Address City/[facility] Co de Phone Number [facility] [place] [address] * (ABNORMAL) Hemogram (06/14/2021 5:13 AM EDT) WBC 7.0 4.0 - 9.5 x10(3)/[facility] LABORATORY RBC 4.94 4.00 - 5.21 x10(6)/[facility]ORY Hemoglobin 15.2 11.7 - 15.5 g/dL [facility] Hematocrit 46.5(H) 35.7 - 45.8 % [facility] MCV 94.1 82.6 - 94.4 fL [facility] MCH 30.8 27.1 - 32.0 pg [facility] MCHC 32.7 31.7 - 35.0 g/dL [facility] Platelets 252 145 - 357 x10(3)/[facility] LABORATORY RDWSD 48.5(H) 37.0 - 46.0 [facility] LABORATORY RDWCV 14.2(H) 11.5 - 14.1 % [facility] MPV 10.4 7.6 - 12.9 [facility] LABORATORY nRBC % Auto 0.0 % [facility] nRBC Abs Auto 0.000 0.000 - 0.000 x10(3)/[facility] Blood 06/14/2021 5:13 AM EDT 06/14/2021 5:19 AM EDT Narrative Resulting Agency Comment Spec In Lab Sha Vale MD HEMATOLOGY ORDERABLE S [facility] [place] [address] * (ABNORMAL) Basic Metabolic Panel (non-fasting) (06/14/2021 5:13 AM EDT) Glucose Lvl 98 65 - 199 mg/dL [facility] Comment:Diabetes: >=200 mg/d L plus symptoms BUN 21(H) 8 - 18 mg/dL [facility] Creatinine 0.80 0.70 - 1.20 mg/dL [facility] Sodium 138 135 - 145 mmol/L [facility] Potassium 4.2 3.5 - 5.0 mmol/L [facility] Comment: Please note: ??Patients with WBC >100,000 may have falsely elevated Potassium levels. ??For accurate Potassium quantification in these patients send serum separator tube (gold top) for subsequent determinations. ??Contact the Clinical Chemistry Laboratory if there are any questions. Chloride 106 98 - 107 mmol/L [facility] CO2 19(L) 22 - 31 mmol/L [facility] Anion Gap 13 5 - 15 mmol/L [facility] Calcium 9.0 8.5 - 10.5 mg/dL [facility] Estimated GFR 85 >=60 mL/min/1. 73 m?? [facility] Comment: This patient? s estimated [...] Rodrigues MD CHEMISTRY ORDERABLES Performing Organization Address City/[facility]/ZIP Co de Phone Number [facility] [place] [address] * (ABNORMAL) Troponin (06/13/2021 9:41 PM EDT) Troponin-T 0.04(H) 0.00 - 0.00 ng/mL [facility] Comment: The 99th percentile for Troponin T is less than 0.01 ng/mL, any detectable cTnT concentration using this assay should be considered elevated. According to the third universal definition of myocardial infarction the following criteria with a clinical presentation consistent with acute myocardial ischemia meets the diagnosis for a myocardial infarction ([place]). Detection of a rise and/or fall of cTnT, with at least one value greater than the 99th percentile (> or = 0.01) and with at least one of the following ?? Symptoms of ischemia ?? New or presumed new significant BQ-fqunpou-U wave (ST-T) changes or new left bundle [...] additional sample may be indicated. Reference: Third Swatara Definition of Myocardial Infarction. Journal of the [place] [employer] 2012;60:1581-98 Blood 06/13/2021 9:41 PM EDT 06/13/2021 9:55 PM EDT Narrative Resulting Agency Comment Spec In Lab Jose Rodrigues MD CHEMISTRY ORDERABLES Performing Organization Address City/[facility]/ZIP Co de Phone Number [facility] [place] [address] * Heparin (unfractionated) Level (06/13/2021 9:41 PM EDT) Heparin UFH Level 0.33 IU/mL [facility] Comment: Heparin (anti-Xa) levels should [...] MD HEMATOLOGY ORDERABLE S Performing Organization Address City/State/[facility] Co de Phone Number [facility] [place] [address] * XR Chest PA & Lateral (Generic) [...] have questions please contact the health care management associate that requested your imaging first. ? Electronically signed by: ZENAIDA TAVARES [facility] ([phone]), at 06/14/2021 8:08 AM Narrative 06/14/2021 8:08 AM EDT EXAMINATION: XR [...] who have questions please contactthe health care management associate that requested your imaging first. Electronically signed by: ZENAIDA TAVARES [facility] ([phone]),at 06/14/2021 8:08 AM Jose Rodrigues MD IMG DX ORDERABLES * (ABNORMAL) Troponin (06/13/2021 6:40 PM EDT) Troponin-T 0.04(H) 0.00 - 0.00 ng/mL [facility] Comment: The 99th percentile for Troponin T is less than 0.01 ng/mL, any detectable cTnT concentration using this assay should be considered elevated. According to the third universal definition of myocardial infarction the following criteria with a clinical presentation consistent with acute myocardial ischemia meets the diagnosis for a myocardial infarction ([place]). Detection of a rise and/or fall of cTnT, with at least one value greater than the 99th percentile (> or = 0.01) and with at least one of the following ?? Symptoms of ischemia ?? New or presumed new significant IO-tclfkuj-H wave (ST-T) changes or new left bundle [...] additional sample may be indicated. Reference: Third Sw[place] Definition of Myocardial Infarction. Journal of the [place] [employer] 2012;60:1581-98 Blood 06/13/2021 6:40 PM EDT 06/13/2021 6:46 PM EDT Narrative Resulting Agency Comment Spec In Lab Jose Rodrigues MD CHEMISTRY ORDERABLES Performing Organization Address [facility] Co de Phone Number [facility] [place] [address] * T4, free (06/13/2021 3:26 PM EDT) Free T4 1.08 0.93 - 1.70 ng/dL [facility] Comment: Reference Interval (ng/dL): Females: ??First Trimester: 0.97-1.68 ??Second Trimester: 0.77-1.51 ??Third Trimester: 0.77-1.49 Blood 06/13/2021 3:26 PM EDT 06/13/2021 3:52 PM EDT Narrative Resulting Agency Comment Spec In Lab Sha Vale MD CHEMISTRY ORDERABLES Performing Organization Address [facility] Co de Phone Number [facility] [place] [address] * Heparin (unfractionated) Level (06/13/2021 3:26 PM EDT) Heparin UFH Level <0.04 IU/mL [facility] Comment: Specimen drawn more than [...] MD HEMATOLOGY ORDERABLE S Performing Organization Address City/[facility]/ZIP Co de Phone Number [facility] [place] [address] * Bilirubin, Direct (06/13/2021 3:26 PM EDT) Bili, Direct 0.1 0.0 - 0.3 mg/dL [facility] Blood Venous Draw / Unknown 06/13/2021 3:26 PM EDT 06/13/2021 3:39 PM EDT Narrative Resulting Agency Comment Spec In Lab Sha Vale MD CHEMISTRY ORDERABLES Performing Organization Address [facility]/ZIP Co de Phone Number [facility] [place] [address] * (ABNORMAL) Comprehensive metabolic panel (non-fasting) (06/13/2021 3:26 PM EDT) Glucose Lvl 77 65 - 199 mg/dL [facility] Comment:Diabetes: >=200 mg/d L plus symptoms BUN 20(H) 8 - 18 mg/dL [facility] Creatinine 0.88 0.70 - 1.20 mg/dL [facility] Sodium 137 135 - 145 mmol/L [facility] Potassium 4.4 3.5 - 5.0 mmol/L [facility] Comment: Please note: ??Patients with WBC >100,000 may have falsely elevated Potassium levels. ??For accurate Potassium quantification in these patients send serum separator tube (gold top) for subsequent determinations. ??Contact the Clinical Chemistry Laboratory if there are any questions. Chloride 102 98 - 107 mmol/L [facility] CO2 17(L) 22 - 31 mmol/L [facility] Anion Gap 18(H) 5 - 15 mmol/L [facility] Calcium 9.2 8.5 - 10.5 mg/dL [facility] Total Protein 7.4 6.1 - 8.0 g/dL [facility] Albumin 4.0 3.2 - 5.2 g/dL [facility] AST 44(H) 0 - 30 unit/L [facility] ALT 31(H) 0 - 30 unit/L [facility] Alk Phos 70 35 - 105 unit/L [facility] Total Bilirubin 0.4 0.2 - 1.3 mg/dL [facility] Estimated GFR 76 >=60 mL/min/1. 73 m?? [facility] Comment: This patient? s estimated [...] Vale MD CHEMISTRY ORDERABLES Performing Organization Address City/[facility]/ZIP Co de Phone Number [facility] [place] [address] * (ABNORMAL) pro-Brain Natriuretic Peptide (06/13/2021 3:26 PM EDT) ProBNP 2,479(H) <=124 pg/mL [facility] Blood Venous Draw / Unknown 06/13/2021 3:26 PM EDT 06/13/2021 3:39 PM EDT Narrative Resulting Agency Comment Spec In Lab Sha Vale MD CHEMISTRY ORDERABLES Performing Organization Address [facility] Co de Phone Number [facility] [place] [address] * Magnesium (06/13/2021 3:26 PM EDT) Magnesium 0.93 0.69 - 1.07 mmol/L [facility] Blood Venous Draw / Unknown 06/13/2021 3:26 PM EDT 06/13/2021 3:39 PM EDT Narrative Resulting Agency Comment Spec In Lab Sha Vale MD CHEMISTRY ORDERABLES Performing Organization Address City/[facility]/ZIP Co de Phone Number [facility] [place] [address] * Phosphorus (06/13/2021 3:26 PM EDT) Phosphorus 3.6 2.5 - 4.5 mg/dL [facility] Blood Venous Draw / Unknown 06/13/2021 3:26 PM EDT 06/13/2021 3:39 PM EDT Narrative Resulting Agency Comment Spec In Lab Sha Vale MD CHEMISTRY ORDERABLES Performing Organization Address City/[facility]/ZIP Co de Phone Number [facility] [place] [address] * APTT (06/13/2021 3:26 PM EDT) PTT 29 25 - 37 sec [facility] Comment: The PTT is NOT appropriate for heparin monitoring. Use the Anti-Xa level for heparin monitoring (HEP UFH) or LMWH monitoring (HEP LMW). A PTT less than 37 seconds generally indicates adequate hemostasis. Blood 06/13/2021 3:26 PM EDT 06/13/2021 3:36 PM EDT Narrative Resulting Agency Comment Spec In Lab Jose Rodrigues MD HEMATOLOGY ORDERABLE S Performing Organization Address [facility] Co de Phone Number [facility] [place] [address] * Prothrombin Time (06/13/2021 3:26 PM EDT) PT 12.4 9.4 - 12.5 sec [facility] INR 1.1 [facility] [...] MD HEMATOLOGY ORDERABLE S Performing Organization Address [facility]/ZIP Co de Phone Number [facility] [place] [address] * (ABNORMAL) TSH [place] (06/13/2021 3:26 PM EDT) TSH 6.47(H) 0.27 - 4.20 mcIU/mL [facility] Comment: Reference Interval (mcIU/mL): Females: ??First Trimester: 0.23-3.88 ??Second Trimester: 0.22-3.90 ??Third Trimester: 0.44-4.66 Blood 06/13/2021 3:26 PM EDT 06/13/2021 3:37 PM EDT Narrative Resulting Agency Comment Spec In Lab Jose Rodrigues MD CHEMISTRY ORDERABLES [facility] [place] [address] * Differential, Automated (06/13/2021 3:26 PM EDT) Neutrophils % 64.4 % [facility] Neutr Abs (ANC) 4.05 1.70 - 6.10 x10(3)/[facility] Lymphocytes % 22.6 % [facility] Lymphocytes Abs 1.4 0.9 - 3.2 x10(3)/[facility] Monocytes % 10.0 % [facility] Monocyte Abs 0.6 0.3 - 0.9 x10(3)/[facility] Eosinophils % 1.8 % [facility] Eosinophils Abs 0.1 0.0 - 0.4 x10(3)/[facility] [facility]AT[facility] Basophils % 1.0 % [facility] Basophils Abs 0.1 0.0 - 0.1 x10(3)/[facility] Immature Gran % 0.20 % [facility] Comment: Immature granulocytes(IG's)percentage and absolute count will include metamyelocytes, myelocytes, and promyelocytes. Blood smears from CBCs yielding IG's will be scanned manually for concordance. If this scan disagrees with the automated IG or if promyelocytes are noted, a manual differential will be performed. Shonda Gran Abs 0.01 0.00 - 0.04 x10(3)/[facility] Blood 06/13/2021 3:26 PM EDT 06/13/2021 3:37 PM EDT Narrative Resulting Agency Comment Spec In Lab Sha Vale MD HEMATOLOGY ORDERABLE S [facility] [place] [address] * (ABNORMAL) Hemogram (06/13/2021 3:26 PM EDT) Pathologist [facility] WBC 6.3 4.0 - 9.5 x10(3)/[facility] RBC 5.27(H) 4.00 - 5.21 x10(6)/[facility] Hemoglobin 16.1(H) 11.7 - 15.5 g/dL [facility] Hematocrit 49.7(H) 35.7 - 45.8 % [facility] MCV 94.3 82.6 - 94.4 fL [facility] MCH 30.6 27.1 - 32.0 pg [facility] MCHC 32.4 31.7 - 35.0 g/dL [facility] Platelets 237 145 - 357 x10(3)/[facility] RDWSD 49.1(H) 37.0 - 46.0 [facility] LABORATORY RDWCV 14.2(H) 11.5 - 14.1 % [facility] MPV 11.3 7.6 - 12.9 [facility] LABORATORY nRBC % Auto 0.0 % [facility] nRBC Abs Auto 0.000 0.000 - 0.000 x10(3)/[facility] Blood 06/13/2021 3:26 PM EDT 06/13/2021 3:37 PM EDT Narrative Resulting Agency Comment Spec In Lab Sha Vale MD HEMATOLOGY ORDERABLE S [facility] [place] [address] * (ABNORMAL) Troponin (06/13/2021 3:26 PM EDT) Pathologist [facility] Troponin-T 0.04(H) 0.00 - 0.00 ng/mL [facility] Comment: The 99th percentile for Troponin T is less than 0.01 ng/mL, any detectable cTnT concentration using this assay should be considered elevated. According to the third universal definition of myocardial infarction the following criteria with a clinical presentation consistent with acute myocardial ischemia meets the diagnosis for a myocardial infarction (OK). Detection of a rise and/or fall of cTnT, with at least one value greater than the 99th percentile (> or = 0.01) and with at least one of the following ?? Symptoms of ischemia ?? New or presumed new significant XA-hsqanoz-F wave (ST-T) changes or new left bundle [...] additional sample may be indicated. Reference: Third [place] Definition of Myocardial Infarction. Journal of the [place] College [employer] 2012;60:1581-98 Blood 06/13/2021 3:26 PM EDT 06/13/2021 3:37 PM EDT Narrative Resulting Agency Comment Spec In Lab Jose Rodrigues MD CHEMISTRY ORDERABLES [facility] [place] [address] * EKG 12 Lead (06/13/2021 2:18 PM EDT) Ventricular rate 48 BPM MUSE SYSTEM Atrial Rate 48 BPM MUSE SYSTEM P-R Interval 196 ms MUSE SYSTEM QRS Duration 84 ms MUSE SYSTEM Q-T Interval 498 ms MUSE SYSTEM QTC Calculated (Bezet) 444 ms MUSE SYSTEM Calculated P [place] 1 degrees MUSE SYSTEM Calculated R [place] 27 degrees MUSE SYSTEM Calculated T [place] -27 degrees MUSE SYSTEM INTERPRETATION Sinus bradycardia Nonspecific ST and T wave abnormality Abnormal ECG When compared with ECG of 07-JUN-2021 16:33, No significant change was found I personally reviewed the tracing and edited the fellows interpretation Confirmed by fellow Jaspreet Grimm ([id number]) on 06/16/2021 1:34:45 PM Confirmed by MD Angelo Danette ([id number]) on 06/16/2021 1:39:20 PM MUSE SYSTEM 06/13/2021 2:18 PM EDT 06/16/2021 1:39 PM EDT Jose Rodrigues MD ECG ORDERABLES MUSE SYSTEM * COVID-19 PCR (06/13/2021 1:09 PM EDT) SARS-CoV-2 RNA PCR Not Detected Not Detected [facility] Comment: This result should be [...] using the Simplexa COVID-19 Direct Assay by 500px as authorized by the FDA issued Emergency [...] Department of Pathology and Laboratory Medicine at [facility], certified under the Clinical Laboratory Improvement Amendments [...] fact sheets at the following FDA website: https://www.fda.gov/medical-devices/cgsrbgdslgv-bxjbdds-5609-ymalz-19-dlsvukrqy- use-a ugcmrgqnasysv-kmfakxa-mddezio/ruson-lulkbbcxexv-lhoo SARS-CoV-2 Source WALLCOVERING TEXTURER Swab [facility] Nasopharyngeal Swab 06/14/19 1:09 PM EDT 06/13/2021 1:45 PM EDT Comment:Symptoms->Surveillan ce Narrative Resulting Agency Comment Spec In Lab Jose Rodrigues MD MICROBIOLOGY - GENER AL ORDERABLES [facility] [place] [address] documented in this encounter Visit Diagnoses Diagnosis [...] on Wed06/13/21 at 2100, Until Discontinued, Routine 2056 (Given - Provider: Dee Raymond RN) 0942 (Given - Provider: Katlaina Wilkinson RN) lisinopriL (Zestril) tablet 2.5 mg [...] Until Discontinued, Hold for sbp<90, hr<60, Routine 2056 (Given - Provider: Dee Raymond RN) 102 (Given - Provider: Katalina Wilkinson RN - Comment: okkelli osborne/ fiorella) rOPINIRole (Requip) tablet 2 mg [...] Routine documented in this encounter Care Teams Large Animal Veterinarian Relationship Specialty Start Date End Date Polo Pearce PA [address] [place] [address] PCP - General Internal Medicine 06/09/21 documented as of this encounter
--- OUTSIDE RECORDS SUMMARY | 2023-10-02 22:48 | XMS_ITS | Encounter Summary ---
[place] [address] Care Team Providers Care Casting And Curing Operator Name Role Phone Polo Pearce Primary Care Provider [phone] Reason for Referral * Diagnostic Test (Routine) - Closed Specialty Diagnoses / Procedures Referred By Jayant harris Referred To Contact Cardiology Diagnoses Elevated blood pressure reading without diagnosis of hypertension Procedures Ziopatch 48 Hrs-15 Days Deja Zaidi PA [facility] [place] [place] [address] [facility] [place] [address] Referral ID Status Reason Start Date Expiration Date V isits Requested Visits Authorized [id number] Closed Specialty Service Requested 06/09/2021 12/09/2021 1 1 Reason for Visit * Diagnostic Test (Routine) - Closed Specialty Diagnoses / Procedures Referred By Jayant harris Referred To Contact Cardiology Diagnoses Elevated blood pressure reading without diagnosis of hypertension Procedures Ziopatch 48 Hrs-15 Days Deja Zaidi PA [facility] [place] [place] [address] [facility] [place] [address] Referral ID Status Reason Start Date Expiration Date V isits Requested Visits Authorized [id number] Closed Specialty Service Requested 06/09/2021 12/09/2021 1 1 Encounter Details Date Type Department Care Team (Latest Contact Info) Description 06/09/2021 3:00 PM EDT - 06/09/2021 11:59 PM EDT Hospital Encounter Non-[place] [phone] Elevated blood pressure reading without diagnosis of [...] as needed. fluticasone propionate (FLONASE) 50 mcg/actuation [place], Suspension 1 spray by Each Nare route [...] AM EDT Tech [place] [address] Channing Escobedo [place] 10/08/2023 9:30 AM EDT Office Visit [place] [phone] MD [facility] DR VASCULAR SURGERY [place], [place] [phone] 10/21/2023 10:30 AM EDT Appointment Nuclear Medicine at [place] [phone] [place] [address] 10/21/2023 11:30 AM EDT Appointment Nuclear Medicine at [place] [phone] Mary Reyes [facility] [address] 10/21/2023 12:30 PM EDT Appointment [place] [address] Mary Reyes [facility] [address] 10/21/2023 1:30 PM EDT Appointment [place] [address] Mary Reyes [facility] [address] 10/21/2023 2:30 PM EDT Appointment [place] [address] Mary Reyes [facility] [address] 10/26/2023 4:00 PM EDT Office Visit Cardiology at [address] [phone] Jaspreet Kinsey MD [facility] [place] [address] 10/28/2023 9:00 AM EDT Office [place] [address] 10/29/2023 10:00 AM EDT Clinical Support [place] [address] 10/29/2023 10:15 AM EDT Procedure [place] [address] 11/01/2023 5:00 PM EDT Office Visit [place] [phone] Selene Browning, PhD [facility] [place] [address] 11/22/2023 4:40 PM EDT Office Visit Cardiology at [address] [address] Porsha Mcdaniels MD [facility] [place] [address] 12/13/2023 10:00 AM EDT Clinical Support [place] [address] Lucero Romero, ALVA [facility] [place] [place] [address] documented as of this encounter Procedures Procedure Name Priority Date/Time Associated Diagnosis Comments ZIOPATCH 48 HRS-15 DAYS Routine 06/09/2021 3:48 PM EDT Elevated blood pressure reading without diagnosis of hypertension documented in this encounter Results * Ziopatch 48 Hrs-15 Days (06/09/2021 3:48 PM EDT) Anatomical Region Laterality Modality Other Narrative 07/01/2021 9:29 AM EDT [facility] ? Zio Patch? Ambulatory Cardiac Event [...] atrial premature beat conducted with a prolonged MO interval, strongly suggestive of atrioventricular makayla reentrant [...] as described ?? Kurt Larose MD, PhD, [facility] Cardiac Electrophysiology Mario Hallman MD CARDIAC SERVICES ORD ERABLES documented in this encounter Visit Diagnoses Diagnosis Elevated blood pressure reading without diagnosis of hypertension documented in this encounter Care Teams Casting And Curing Operator Relationship Specialty Start Date End Date Polo Pearce PA [address] [place] [address] PCP - General Internal Medicine 06/09/21 documented as of this encounter
--- OUTSIDE RECORDS SUMMARY | 2023-10-02 22:48 | XMS_ITS | Encounter Summary ---
Author Organization [facility] Address [facility] [place] [address] Care Team Providers Care Psychosocial Rehabilitation Counselor Name Role Phone Polo Pearce Primary Care Provider [phone] Encounter Details Date Type Department Care Team (Late st Contact Info) Description 06/13/2021 Telephone Cardiology at [address] [phone] Chayo Dominguez PA [facility] [place] [address] Social History Tobacco Use Types Packs/Day Years [...] Referring Provider: Dr. Gale Trinh Patient Location: [facility] See Dr. Mejia's telephone encounter note [...] Of note, she was recently admitted to [facility] for evaluation of angina and discharged 06/08/21. At that time she initially presented to [facility] where she was noted to have a troponin I of 406 which was flat at 411 on repeat and an elevated BNP. EKG showed nonspecific ST changes in the inferolateral leads. She was transferred to [facility] for further evaluation where [...] management. Chayo Chappell PA-C Cardiovascular Medicine Pager [phone] 06/13/2021 documented in this encounter Plan of Treatment Upcoming Encounters Date Type Department Care Team (Late st Contact Info) Description 10/08/2023 8:30 AM EDT Tech [place] [address] Channing Escobedo [place] 10/08/2023 9:30 AM EDT Office Visit [place] [address] MD [facility] [place] [address] 10/21/2023 10:30 AM EDT Appointment [place] [address] Mary Reyes APRN [facility] [place] [address] 10/21/2023 11:30 AM EDT Appointment [place] [address] Mary Reyes [place] [address] 10/21/2023 12:30 PM EDT Appointment [place] [address] Mary Reyes [place] [address] 10/21/2023 1:30 PM EDT Appointment [place] [address] Mary Reyes [place] [address] 10/21/2023 2:30 PM EDT Appointment [place] [address] [place] [address] 10/26/2023 4:00 PM EDT Office Visit Cardiology at [address] [phone] Jaspreet Kinsey MD [facility] [place] [address] 10/28/2023 9:00 AM EDT Office Visit [place] [address] 10/29/2023 10:00 AM EDT Clinical Support [place] [address] 10/29/2023 10:15 AM EDT Procedure visit [place] [address] 11/01/2023 5:00 PM EDT Office Visit [place] [phone] Selene Browning, PhD [facility] [place] [address] 11/22/2023 4:40 PM EDT Office Visit Cardiology at [address] [phone] Porsha Mcdaniels MD [facility] [place] [address] 12/13/2023 10:00 AM EDT Clinical Support [place] [address] Lucero Romero, ALVA [facility] [place] [address] documented as of this encounter Visit Diagnoses Not on filedocumented in this encounter Care Teams Psychosocial Rehabilitation Counselor Relationship Specialty Start Date End Date Polo Pearce PA [address] [place] [address] PCP - General Internal Medicine 06/09/21 documented as of this encounter
--- OUTSIDE RECORDS SUMMARY | 2023-10-02 22:48 | XMS_ITS | Encounter Summary ---
Author Organization [facility] [place] [address] Care Team Providers Care High Density Press Laborer Name Role Phone Polo Pearce Primary Care Provider [phone] Encounter Details Date Type Department Care Team (Late st Contact Info) Description 06/11/2021 Telephone Cardiology at [address] [phone] Deja Zaidi PA [facility] [place] [address] Social History Tobacco Use Types Packs/Day Years [...] get the book ALWAYS HUNGRY by Jose Ttutle as per Dr. Hallman. ( Patient had called on the phone and asked the name and author) JOCY Hernandez 06/11/2021 JOCY Hernandez 06/11/2021 Pager [phone] documented in this encounter Plan of Treatment Upcoming Encounters Date Type Department Care Team (Late st Contact Info) Description 10/08/2023 8:30 AM EDT Tech Visit Vascular Lab at [place] [phone] Channing Escobedo [place] 10/08/2023 9:30 AM EDT Office Visit [place] [address] MD [facility] [place] [place] [address] 10/21/2023 10:30 AM EDT Appointment [place] [phone] Mary Reyes [facility] [place] [address] 10/21/2023 11:30 AM EDT Appointment [place] [address] Mary Reyes [facility] [place] [address] 10/21/2023 12:30 PM EDT Appointment [place] [phone] Mary Reyes [facility] [place] [address] 10/21/2023 1:30 PM EDT Appointment [place] [phone] Mary Reyes [facility] [place] [address] 10/21/2023 2:30 PM EDT Appointment [place] [phone] Mary Reyes APRN [facility] [place] [address] 10/26/2023 4:00 PM EDT Office Visit Cardiology at [address] [phone] Jaspreet Kinsey MD [facility] [place] [address] 10/28/2023 9:00 AM EDT Office [place] [address] 10/29/2023 10:00 AM EDT Clinical [place] [address] 10/29/2023 10:15 AM EDT Procedure [place] [address] 11/01/2023 5:00 PM EDT Office Visit [place] [address] Selene Browning, [facility] [place] [address] 11/22/2023 4:40 PM EDT Office Visit Cardiology at [address] [phone] Porsha Mcdaniels MD [facility] [place] [address] 12/13/2023 10:00 AM EDT Clinical Support [place] [phone] Lucero Romero, ALVA [facility] [place] [address] documented as of this encounter Visit Diagnoses Not on filedocumented in this encounter Care Teams High Density Press Laborer Relationship Specialty Start Date End Date Polo Pearce PA [address] [place] [address] PCP - General Internal Medicine 06/09/21 documented as of this encounter
--- OUTSIDE RECORDS SUMMARY | 2023-10-02 22:48 | XMS_ITS | Encounter Summary ---
[place] [address] Care Team Providers Care Professor Of Physics Name Role Phone Polo Pearce Primary Care Provider [phone] Encounter Details Date Type Department Care Team (Late st Contact Info) Description 06/10/2021 Telephone Cardiology at [address] [phone] Lashonda Menjivar, RN Social History Tobacco Use [...] prescription for 90 days of Jardiance, to [facility]. Prescription pended. Lashonda Menjivar RN (Jodie), BSN [facility] documented in this encounter Plan of Treatment Upcoming Encounters Date Type Department Care Team (Late st Contact Info) Description 10/08/2023 8:30 AM EDT Tech Visit Vascular Lab at [place] [phone] Ch[place] Escob[place] 10/08/2023 9:30 AM EDT Office Visit Vascular Surgery at [place] [phone] MD [facility] [place] [address] 10/21/2023 10:30 AM EDT Appointment Nuclear Medicine at [place] [phone] [place] [address] 10/21/2023 11:30 AM EDT Appointment Nuclear Medicine at [place] [phone] [place] [address] 10/21/2023 12:30 PM EDT Appointment Nuclear Medicine at [place] [phone] [place] [address] 10/21/2023 1:30 PM EDT Appointment [place] [address] [place] [address] 10/21/2023 2:30 PM EDT Appointment [place] [phone] Mary Reyes [facility] [address] 10/26/2023 4:00 PM EDT Office Visit Cardiology at [address] [address] Jaspreet Kinsey MD [facility] [place] [address] 10/28/2023 9:00 AM EDT Office Visit [place] [address] 10/29/2023 10:00 AM EDT Clinical Support [place] [address] 10/29/2023 10:15 AM EDT Procedure visit [place] [address] 11/01/2023 5:00 PM EDT Office Visit [place] [phone] Selene Browning, PhD [facility] [address] 11/22/2023 4:40 PM EDT Office Visit Cardiology at [address] [phone] Porsha Mcdaniels MD [facility] [place] [address] 12/13/2023 10:00 AM EDT Clinical Support [place] [phone] [facility] [place] [address] documented as of this encounter Visit Diagnoses Not on filedocumented in this encounter Care Teams Professor Of Physics Relationship Specialty Start Date End Date Polo Pearce PA [address] [place] [address] PCP - General Internal Medicine 06/09/21 documented as of this encounter
--- OUTSIDE RECORDS SUMMARY | 2023-10-02 22:49 | XMS_ITS | Encounter Summary ---
Author Organization [facility] Address [facility] [place] [address] Care Team Providers Care Cylinder Block Hole Reliner Name Role Phone Tmi Rogers DNP Primary Care Provider [phone] Encounter Details Date Type Department Care Team (Latest Contact Info) Description 05/30/2021 9:30 AM EDT TH Visit (TeleHealth) [place] [address] Beto Miller MD [facility] [place] [address] Pleurisy with effusion; *History of COVID-19; Chronic [...] 05/30/21 PCP: Polo Pearce and Tim Rogers, LINK TRAINER OPERATOR [address] [place] [address] Pulmonary Background: ?? Cough, dyspnea, wheeze and [...] 1: 80, normal SSA, SSB, Alcantar antibody, CASKET INSPECTOR antibody, ANCA, MPO antibody, GA-3 antibody, serum RITCHIE, CBC, BMP and CRP [...] I reviewed the chest x-ray done at [facility] at the time which showed bilateral hazy opacities (mild). Debbie was not hospitalized for Covid and seemed to make a short-term recovery but by late April was again struggling. She describes increased cough and dyspnea and went to the emergency room at [facility] May 02. I do not have that [...] the May 27 CT chest images from [facility] and her April chest x-ray images ??? Once I have reviewed these I will contact the patient and potentially involve local gas fitter helper, Ryanne Wilson, who I do not think is ever seen the patient but may be a useful local resourcegiven Indira's complicated history Outpatient Established Visits Time MDM 80013 10-19 Straightforward 16351 20-29 X Low 46567 30-39 Moderate 94610 40-54 High 98833 + 15 mins Beto Miller MD documented in this encounter Plan of Treatment Upcoming Encounters Date Type Department Care Team (Late st Contact Info) Description 10/08/2023 8:30 AM EDT Tech Visit [facility]ascular [place] [address] Channing Escobedo [place] 10/08/2023 9:30 AM EDT Office Visit Vascular Surgery at [address] MD [facility] [place] [address] 10/21/2023 10:30 AM EDT Appointment Nuclear Medicine at [address] Mary Reyes [facility] [place] [address] 10/21/2023 11:30 AM EDT Appointment Nuclear Medicine at [place] [phone] Mary Reyes [facility] [place] [address] 10/21/2023 12:30 PM EDT Appointment Nuclear Medicine at [place] [phone] Mary Reyes [facility] [place] [address] 10/21/2023 1:30 PM EDT Appointment [place] [address] Mary Reyes [facility] [place] [address] 10/21/2023 2:30 PM EDT Appointment [place] [address] Mary Reyes LINK TRAINER OPERATOR [facility] [place] [address] 10/26/2023 4:00 PM EDT Office Visit Cardiology at [address] [address] Jaspreet Kinsey MD [facility] [place] [address] 10/28/2023 9:00 AM EDT Office [place] [address] 10/29/2023 10:00 AM EDT Clinical [place] [address] 10/29/2023 10:15 AM EDT Procedure [place] [address] 11/01/2023 5:00 PM EDT Office [place] [phone] Selene Browning, PhD [facility] [place] [address] 11/22/2023 4:40 PM EDT Office Visit Cardiology at [address] [phone] Porsha Mcdaniels MD [facility] [place] [address] 12/13/2023 10:00 AM EDT Clinical [place] [address] Lucero Romero, RD [facility] [place] [address] documented as of this encounter Visit Diagnoses Diagnosis Pleurisy with effusion Unspecified pleural effusion History of COVID-19 Chronic cough Cough RAVI (dyspnea on exertion) Other dyspnea and respiratory abnormality documented in this encounter Care Teams Cylinder Block Hole Reliner Relationship Specialty Start Date End Date Tim Rogers DNP PCP - General Family Medicine 08/28/19 06/08/21 documented as of this encounter
--- OUTSIDE RECORDS SUMMARY | 2023-10-02 22:49 | XMS_ITS | Encounter Summary ---
Author Organization [facility] [place] [address] Care Team Providers Care Coffee Sommelier Name Role Phone Tim Rogesr DNP Primary Care Provider [phone] Reason for Visit * Reason Comments Referral Dyspnea On Exertion * Consultation (Routine) - Specialty Diagnoses / Procedures Referred By Jayant harris Referred To Contact Pulmonology Diagnoses Other forms of dyspnea Virginia Neal MD [facility] [address] [place] [address] [facility] Pulmonology [address] [place] [phone] Referral ID Status Reason Start Date Expiration Date V isits Requested Visits Authorized [id number] Consult, Test & Treat Connection Center PCP Updated and/or Approved 04/05/2020 10/02/2020 6 6 Encounter Details Date Type Department Care Team (Latest Contact Info) Description 08/01/2020 1:00 PM EDT Office [place] [address] Beto Miller MD [facility] [place] [address] Asthma, chronic, moderate persistent, uncomplicated [...] Miller MD - 08/01/2020 1:00 PM EDT [facility] Section of Pulmonary Medicine Outpatient Consultation Date of Encounter: 08/01/2020 Referring Provider: Virginia Neal Md [address] [place] [address] PCP: Tim Rogers APRN [address] [place] [address] Reason for Consult: I was asked to [...] unable to breathe and was sent to [facility] for the possibility of non-ST elevation myocardial [...] ONCE ??? fluticasone propionate (FLONASE) 50 mcg/actuation [place], Suspension 1 spray by Each Nare route [...] CT scan of the chest performed in [facility]. 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 She has been prescribed Symbicort [...] MD Pulmonary and Critical Care Medicine Pager #[phone] documented in this encounter Plan of Treatment Upcoming Encounters Date Type Department Care Team (Late st Contact Info) Description 10/08/2023 8:30 AM EDT Tech [place] [address] Channing Escobedo [place] 10/08/2023 9:30 AM EDT Office Visit [place] [phone] MD [facility] [place] [address] 10/21/2023 10:30 AM EDT Appointment [place] [address] Mary Reyes [facility] [place] [address] 10/21/2023 11:30 AM EDT Appointment [place] [address] [place] [address] 10/21/2023 12:30 PM EDT Appointment [place] [address] Mary Reyes, [place] [address] 10/21/2023 1:30 PM EDT Appointment [place] [address] Mary Reyes, [place] [address] 10/21/2023 2:30 PM EDT Appointment [place] [address] Mary Reyes, [place] [address] 10/26/2023 4:00 PM EDT Office Visit Cardiology at [address] [phone] Jaspreet Kinsey MD [facility] [place] [address] 10/28/2023 9:00 AM EDT Office [place] [address] 10/29/2023 10:00 AM EDT Clinical Support [place] [address] 10/29/2023 10:15 AM EDT Procedure [place] [address] 11/01/2023 5:00 PM EDT Office [place] [address] Selene Browning, PhD [facility] [place] [address] 11/22/2023 4:40 PM EDT Office Visit Cardiology at [place] [phone] Porsha Mcdaniels MD [facility] [place] [address] 12/13/2023 10:00 AM EDT Clinical [place] [phone] [facility] [place] [address] documented as of this encounter Visit Diagnoses Diagnosis Asthma, chronic, moderate persistent, uncomplicated documented in this encounter Care Teams Coffee Sommelier Relationship Specialty Start Date End Date Tim Rogers DNP PCP - General Family Medicine 08/28/19 06/08/21 documented as of this encounter
--- OUTSIDE RECORDS SUMMARY | 2023-10-02 22:49 | XMS_ITS | Encounter Summary ---
Author Organization [facility] [place] [address] Care Team Providers Care Direct Sales Representative Name Role Phone Tim Rogers DNP Primary Care Provider [phone] Encounter Details Date Type Department Care Team (Late st Contact Info) Description 06/06/2021 [place] [address] Paulo Ramachandran Jr., MD [facility] [place] [address] Social History Tobacco Use Types Packs/Day Years [...] provider/staff member. Referring Provider: Stuart Iyer MD [address] [place] [address] [place] [address] Indira Roque 51 y.o. w / a [...] pt has been accepted for transfer to [facility] tomorrow. I asked the provider to contact us again if there is change in clinical status. documented in this encounter Plan of Treatment Upcoming Encounters Date Type Department Care Team (Late st Contact Info) Description 10/08/2023 8:30 AM EDT Tech [place] [address] Channing Escobedo [place] 10/08/2023 9:30 AM EDT Office [place] [address] MD [facility] [place] [address] 10/21/2023 10:30 AM EDT Appointment [place] [address] Mary Reyes APRN [facility] [place] [address] 10/21/2023 11:30 AM EDT Appointment [place] [address] [place] [address] 10/21/2023 12:30 PM EDT Appointment [place] [address] [place] [address] 10/21/2023 1:30 PM EDT Appointment [place] [address] [place] [address] 10/21/2023 2:30 PM EDT Appointment [place] [address] [place] [address] 10/26/2023 4:00 PM EDT Office Visit Cardiology at [address] [address] Jaspreet Kinsey MD [facility] [place] [address] 10/28/2023 9:00 AM EDT Office Visit [place] [address] 10/29/2023 10:00 AM EDT Clinical Support [place] [address] 10/29/2023 10:15 AM EDT Procedure visit [place] [address] 11/01/2023 5:00 PM EDT Office Visit Gastroenterology at [address] Selene Browning, PhD [facility] [place] [address] 11/22/2023 4:40 PM EDT [place] [address] Porsha Mcdaniels MD [facility] [place] [address] 12/13/2023 10:00 AM EDT Clinical Support Gastroenterology at [place] [phone] Lucero Romero, RD [facility] [place] [place] [address] documented as of this encounter Visit Diagnoses Not on filedocumented in this encounter Care Teams Direct Sales Representative Relationship Specialty Start Date End Date Tim Rogers DNP PCP - General Family Medicine 08/28/19 06/08/21 documented as of this encounter
--- OUTSIDE RECORDS SUMMARY | 2023-10-02 22:49 | XMS_ITS | Encounter Summary ---
[place] [address] Care Team Providers Care Tester [employer] Name Role Phone Tim Rogers DNP Primary Care Provider Encounter Details Date Type Department Care Team (Late st Contact Info) Description 05/02/2021 Ancillary Procedure [place]iology [place] [phone] Tim Rogers DNP [address] [place] [address] Social History Tobacco Use Types Packs/Day Years [...] AM EDT Tech [place] [address] Ch[place] Escobedo [place] 10/08/2023 9:30 AM EDT Office [place] [address] MD [facility] [place] [address] 10/21/2023 10:30 AM EDT Appointment Nuclear Medicine at [place] [phone] Mary Reyes [facility] [address] 10/21/2023 11:30 AM EDT Appointment [place] [address] [place] [address] 10/21/2023 12:30 PM EDT Appointment [place] [address] Mary Reyes [facility] [address] 10/21/2023 1:30 PM EDT Appointment [place] [address] Mary Reyes [facility] [address] 10/21/2023 2:30 PM EDT Appointment [place] [address] Mary Reyes [facility] [address] 10/26/2023 4:00 PM EDT Office Visit Cardiology at [address] [phone] Jaspreet Kinsey MD [facility] [place] [address] 10/28/2023 9:00 AM EDT Office [place] [address] 10/29/2023 10:00 AM EDT Clinical [place] [address] 10/29/2023 10:15 AM EDT Procedure [place] [address] 11/01/2023 5:00 PM EDT Office [place] [phone] Selene Browning, PhD [facility] [address] 11/22/2023 4:40 PM EDT Office Visit Cardiology at [address] [phone] Porsha Mcdaniels MD [facility] [place] [address] 12/13/2023 10:00 AM EDT Clinical [place] [address] [facility] [place] [address] documented as of this encounter Procedures Procedure Name Priority Date/Time Associated Diagnosis Comments FILM LIBRARY STORAGE ONLY DX CHEST Routine 05/02/2021 12:00 AM EST documented in this encounter Results * Film Library- Storage Only DX Chest (05/02/2021 12:00 AM EST) Narrative [facility] - 05/30/2021 2:33 PM EDT This exam is auto-finalizing. It's purpose is for storage only. Tim Rogers DNP IMG FILM LIBRARY OR DERABLES [place], [place] documented in this encounter Visit Diagnoses Not on filedocumented in this encounter Care Teams Tester [employer] Relationship Specialty Start Date End Date Tim Rogers DNP PCP - General Family Medicine 08/28/19 06/08/21 documented as of this encounter
--- OUTSIDE RECORDS SUMMARY | 2023-10-02 22:49 | XMS_ITS | Encounter Summary ---
Author Organization [facility] [place] [address] Care Team Providers Care Human Factors Advisor Lead Name Role Phone Tim Rogers DNP Primary Care Provider Reason for Visit * Diagnostic Test (Routine) - Closed Specialty Diagnoses / Procedures Referred By Jayant harris Referred To Contact Cardiology Diagnoses Palpitations Procedures Ziopatch 48 Hrs-15 Days Beto Miller MD [facility] [place] [address] [facility] [place] [address] Referral ID Status Reason Start Date Expiration Date V isits Requested Visits Authorized [id number] Closed Specialty Service Requested 10/28/2020 03/07/2021 1 1 Encounter Details Date Type Department Care Team (Latest Contact Info) Description 10/28/2020 8:00 AM EDT - 10/28/2020 11:59 PM EDT Hospital Encounter Non-Invasive [place] [address] Beto Miller MD [facility] [place] [address] Palpitations Discharge Disposition: Home Social [...] as needed. fluticasone propionate (FLONASE) 50 mcg/actuation [place], Suspension 1 spray by Each Nare route [...] EDT Tech Visit [place] [address] [place] Escob[place] 10/08/2023 9:30 AM EDT Office [place] [phone] MD [facility] [place] [address] 10/21/2023 10:30 AM EDT Appointment [place] [phone] [place] [address] 10/21/2023 11:30 AM EDT Appointment [place] [address] Mary Reyes [facility] [place] [address] 10/21/2023 12:30 PM EDT Appointment [place] [address] Mary Reyes [facility] [place] [address] 10/21/2023 1:30 PM EDT Appointment [place] [address] Mary Reyes APRN [facility] [place] [place] [address] 10/21/2023 2:30 PM EDT Appointment [place] [address] Mary Reyes APRN [facility] [place] [place] [address] 10/26/2023 4:00 PM EDT Office Visit Cardiology at [address] [phone] Jaspreet Kinsey MD [facility] [place] [address] 10/28/2023 9:00 AM EDT Office [place] [address] 10/29/2023 10:00 AM EDT Clinical [place] [address] 10/29/2023 10:15 AM EDT Procedure [place] [address] 11/01/2023 5:00 PM EDT Office [place] [phone] Selene Browning, PhD [facility] [place] [address] 11/22/2023 4:40 PM EDT Office Visit Cardiology at [address] [phone] Porsha Mcdaniels MD [facility] [place] [address] 12/13/2023 10:00 AM EDT Clinical [place] [address] Lucero Romero, [place] [facility] [place] [address] documented as of this encounter Procedures Procedure [...] Palpitations documented in this encounter Care Teams Human Factors Advisor Lead Relationship Specialty Start Date End Date Tim Rogers DNP PCP - General Family Medicine 08/28/19 06/08/21 documented as of this encounter
--- OUTSIDE RECORDS SUMMARY | 2023-10-02 22:49 | XMS_ITS | Encounter Summary ---
Author Organization [facility] [place] [address] Care Team Providers Care Lockstitch Sleeve Maker Name Role Phone Polo Pearce Primary Care Provider [phone] Reason for Referral * Diagnostic Test (Routine) - Closed Specialty Diagnoses / Procedures Referred By Jayant harris Referred To Contact Cardiology Diagnoses Elevated blood pressure reading without diagnosis of hypertension Procedures Ziopatch 48 Hrs-15 Days Deja Zaidi PA [facility] [place] [address] [facility] [place] [address] Referral ID Status Reason Start Date Expiration Date V isits Requested Visits Authorized [id number] Closed Specialty Service Requested 06/09/2021 12/09/2021 1 1 Reason for Visit * Auth/Cert Specialty Diagnoses / Procedures Referred By Jayant harris Referred To Contact Diagnoses NSTEMI (non-ST elevated myocardial infarction) NSTEMI Procedures EMERGENCY OBSVO Referral ID Status Reason Start Date Expiration Date Visits Re quested Visits Authorized [id number] 1 1 Encounter Details Date Type Department Care Team (Latest Contact Info) Description 06/07/2021 3:49 PM EDT - 06/09/2021 3:25 PM EDT Hospital Encounter Intermediate Cardiac Care Unit [facility] [place] [address] Mario Hallman MD [facility] [address] YEUNG YARI [facility] NSTEMI (non-ST elevated myocardial infarction); Elevated blood [...] Loida Roque Patient Age: 51 y.o. Language: Indonesian Race: White Ethnicity: Not nor Admit date: [...] in a week and prn ?? Consider [facility] as an out patient Inpatient Provider Contact Information: Dr. Mario Zaidi PA-C [phone] Discharge Diagnoses (Hospital Problems) and Secondary Diagnoses [...] change from prior in 08/2019. ?? Procedure Complete-85470. Image enhancement Definity was used for left [...] who have questions please contact the health personal care home administrator that requested your imaging first. CXR 06/08/2021 [...] hysterectomy, Insomnia, and migraine who presents to [facility] with RUQ pain that [...] 15. ?? Hospital Course: On admission to [facility], the patient had no complaints of chest pain or shortness of breath at rest.Telemetry was attached which showed normal sinus rhythm. Heparin drip was infusing. [facility] records/transfer records were reviewed. Baseline labs were checked and/or drawn. Chest Pain, [place] ruled out, Echo showed preserved LVEF Given [...] as needed Follow up Appointments: PCP Tim Rogers APRN [phone] to see you in a week (patient to set this up) Mel placed on 06/09/2021 Cardiology to see in a month and prn. Dr. Kinsey to see the patient in [facility] on July 23 at 920 am. Please call [phone] with questions. Home oxygen therapy: N/A Arrangements for VNA/home care: none Future Appointments and Orders Future Appointments and Orders Future Appointments Provider Department Dept Phone 07/23/2021 8:20 AM Jaspreet Kinsey MD Cardiology at [facility] Arrive at: [facility] [address] [phone] Future Orders Complete By Expires Mel 48 Hrs-15 Days [[id number] CPT(R)] 06/09/2021 12/09/2021 Process Instructions: Scheduling Instructions: [...] as needed Follow up Appointments: PCP Tim Rogers APRN [phone] to see you in a week (patient to set this up) Mel placed on 06/09/2021 Cardiology to see in a month and prn. Dr. Kinsey to see the patient in [facility] [place] on July 23 at 920 am. Please call [phone] with questions. Home oxygen therapy: N/A Arrangements for VNA/home care: none documented in this encounter Medications at Time of Discharge Medication Sig Dispensed Refills Start Date End Date rOPINIRole (Requip) 1 mg Tablet Take 2 mg by mouth 2 times daily. 07/16/2020 loratadine (Claritin) 10 mg Tablet Take 10 mg by mouth daily as needed. fluticasone propionate (FLONASE) 50 mcg/actuation [place], Suspension 1 spray by Each Nare route [...] Nutrition Plan: Pt seen for Na2gm diet. Car Shifter informed pt of current diet orders and their restrictions. Pt expressed understanding and informed this auto service writer that she tries to limit salt use at home. Car Shifter and pt discussed common sources of sodium [...] nausea and no vomiting Last Bowel Movement: (LATHE OPERATOR CONTACT LENS) Patient education / questions: provided diet order education and patient with good understanding, written education and contact information provided and all nutrition related questions answered at this time Nutrition services to follow weekly through hospital course unless consulted in the interim. Rocio Rosenthal Pager: [phone] * Deja Zaidi PA - 06/09/2021 9:14 AM EDT Inpatient Cardiology Discharge Day Note Patient Name: Loida Roque Service: HOME HEALTH SPEECH THERAPIST / PA Responsible Attending: Mario Hallman MD [...] (from the past 24 hour(s)) urine, qualitative ([place]/[facility]/CGP/NL) Result Value Ref Range Spec [place] UA 1.010 1.006 - 1.030 HCG Qual [...] to [facility] from [facility] with a NSTEMI. She [...] with Dr. Hallman. ?? JOCY Hernandez Pager [phone] JOCY MCKOY 06/09/2021 Associated attestation - Mario Hallman MD - 06/09/2021 9:37 PM EDT Cardiology Attending Addendum I shared this visit with JOCY Zaidi and guided the medical decision- making. I explained to patient the findings of echo, R heart catheterization and our diagnostic impression and medications (furosemide and empagliflozin) and possible adverse events. More than 30 minutes were spent in [id number] contact with patient and with arranging discharge [...] Pardo - 06/08/2021 8:34 PM EDT Machine Setter Supervisor Encounter Note Patient Name: Loida Roque : [id number] MR#: [id number] Admit Date: 06/07/2021 3:49 PM Hospital Day 0 days Narrative: Initial rounding visit to introduce international organizer services and to assess patient interest. Patient [...] Day Note Patient Name: Loida Roque Service: HOME HEALTH SPEECH THERAPIST / PA Responsible Attending: Mario Hallman MD [...] Infusions: ??? heparin (porcine) infusion 1,100 Units/hr (06/08/21718) PRN Meds:hydrOXYzine, heparin (porcine) infusion AND heparin [...] PCR Not Detected Not Detected SARS-CoV-2 Source HOME HEALTH SPEECH THERAPIST Swab Troponin Result Value Ref Range Troponin-T [...] to [facility] from [facility] with a NSTEMI. She [...] with Dr. Hallman. ?? JOCY Hernandez Pager [phone] JOCY MCKOY 06/08/2021 Associated attestation - Mario [...] hysterectomy, Insomnia, and migraine who presents to 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 ??? fluticasone propionate (FLONASE) 50 mcg/actuation [place], Suspension 1 spray by Each Nare route [...] to [facility] from [facility] with a NSTEMI. She has an elevated trop, BNP and lateral EKG changes. Patient is now awaiting an Echo and cardiac cath. Neurology consult called in to determine if she needs imaging prior to her Echo and cath given garbled speech a week ago. Stable at this time. TREATMENT PLAN: NSTEMI Admit to [facility] for telemetry monitoring Serial enzymes and EKGs [...] JOCY Hernandez 06/07/2021 Provider: JOCY MCKOY Pager [phone] 06/07/2021 Associated attestation - Mario Hallman MD [...] COVID test: Lab Results Component Value Date [id number] Not Detected 06/07/2021 Present on Admission: ??? [...] Primary care provider on file: Tim Rogers, CALCULUS TUTOR [phone] Pharmacy: [id number] - [place], [place] - [address] [facility] [address] [facility] [address] Advance Care Planning: Attempt Cardiopulmonary Resuscitation - Inpatient <no information> -Advanced Directive: No, declines (Boby (spouse) SDM) Current Functional Ability: Independent Functional Status Prior to Admission: Independent Home Environment: Others in the home: spouse. Current Living Arrangements: home/apartment/condo. Accessibility Concerns: . Current DME: none [address] [facility] [address] Social & Family Supports: All names listed [...] private vehicle when medically ready. Registered Nurse Wood Boring Machine Operator / Recyclable Materials Distributor will continue to follow patient???s progress and [...] Daily. ??? 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 Consider DAIRY CLERK consult for full evaluation and diet recommendations. [...] NPO at midnight for cath 06/08 ECHO [facility] due at 2200 INDIVIDUALIZED FALL PREVENTION INTERVENTIONS: [...] for further details. JOCY MCKOY 06/07/2021 Pager [phone] documented in this encounter Plan of Treatment Upcoming Encounters Date Type Department Care Team (Late st Contact Info) Description 10/08/2023 8:30 AM EDT Tech Visit [place] [phone] [place] 10/08/2023 9:30 AM EDT Office Visit [place] [phone] MD [facility] [place] [address] 10/21/2023 10:30 AM EDT Appointment [place] [phone] Mary Reyes APRN [facility] [place] [address] 10/21/2023 11:30 AM EDT Appointment [place] [address] Mary Reyes [facility] [place] [address] 10/21/2023 12:30 PM EDT Appointment [place] [address] Mary Reyes [facility] [place] [address] 10/21/2023 1:30 PM EDT Appointment [place] [address] Mary Reyes [facility] [place] [address] 10/21/2023 2:30 PM EDT Appointment [place] [address] [place] [address] 10/26/2023 4:00 PM EDT Office Visit Cardiology at [address] [phone] Jaspreet Kinsey MD [facility] [place] [address] 10/28/2023 9:00 AM EDT Office [place] [address] 10/29/2023 10:00 AM EDT Clinical Support [place] [address] 10/29/2023 10:15 AM EDT Procedure visit [place] [address] 11/01/2023 5:00 PM EDT Office Visit [place] [address] Selene Browning, PhD [facility] [place] [address] 11/22/2023 4:40 PM EDT Office Visit Cardiology at [address] [address] Porsha Mcdaniels MD [facility] [place] [address] 12/13/2023 10:00 AM EDT Clinical Support [place] [address] [facility] [place] [address] documented as of this encounter Procedures Procedure [...] (non-ST elevated myocardial infarction) RAPID COVID-19 PCR ([facility]D/NLH) Routine 06/07/2021 4:30 PM EDT documented in this encounter Results * Ziopatch 48 Hrs-15 Days (06/09/2021 3:48 PM EDT) Anatomical Region Laterality Modality Other Narrative 07/01/2021 9:29 AM EDT [facility] ? Zio Patch? Ambulatory Cardiac Event [...] atrial premature beat conducted with a prolonged IN interval, strongly suggestive of atrioventricular makayla reentrant [...] described ?? Kurt Larose MD, PhD, [facility] Cardiac Electrophysiology Mario Hallman MD CARDIAC SERVICES ORD ERABLES * CARDIAC CATHETERIZATION (06/09/2021 9:05 AM EDT) Anatomical Region Laterality Modality Other Narrative 06/09/2021 9:09 AM EDT ?[facility] ? Cardiac Catheterization/Intervention Report ? Patient Name: Neisha, Loida ? Procedure Date: 06/09/2021 ? A #: [id number] ? Primary Physician: Aaron Ash ? Case #: [id number] ? File Name: [id number] ? Catheterization Order Number: [id number] ? [facility] ? Final Report [place], [place] ? Patient Name: ? Loida Neisha ? ID#: ?[id number] ? : ?1970 ? Procedure Date: ? June 09, 2021 ?Case #: ? [id number] ? Room: ? 1 ? Case Physician: [...] was ?designated as ASA Class III. The [facility] clinical frailty scale is 2: Well. [...] procedure was Urgent. The indication for ?the sawyer cork slabs visit is other indication. Chest pain symptom [...] right heart catheterization and ?oximetry. ? Aaron Ash, M.D. ? Electronically Signed by: Aaron Ash M.D. ? Report Finalized: 06/09/2021 ??09:01 ? Report Last Ammended: 06/23/2021 ??09:51 ? Procedure Note Aaron Ash MD - 06/23/2021 [facility] Cardiac Catheterization/Intervention Report Patient Name: Loida Roque Procedure Date: 06/09/2021 A #: [id number] Primary Physician: Aaron Ash Case #: [id number] File Name: [id number] Catheterization Order Number: [id number] [facility] FinalReport [place], [place] Patient Name: Loida Roque ID#:[id number] :1970 Procedure Date: June 09, 2021 Case [...] patientwas designated as ASA Class III. The [facility] clinical frailty scale is 2:Well. Diagnostic [...] diagnostic procedure was Urgent. The indicationfor the sawyer cork slabs visit is other indication. Chest pain symptomassessment [...] Natriuretic Peptide (06/09/2021 3:37 AM EDT) Pathologist [facility] ProBNP 911(H) <=124 pg/mL [facility] Blood Venous Draw / Unknown 06/09/2021 3:37 AM EDT 06/09/2021 3:59 AM EDT Narrative Resulting Agency Comment Spec In Lab Deja SANDRA CHEMISTRY ORDERABLES [facility] [place] [address] * Differential, Automated (06/09/2021 3:37 AM EDT) [facility] Neutrophils % 64.9 % [facility] Neutr Abs (ANC) 5.12 1.70 - 6.10 x10(3)/[facility] Lymphocytes % 21.9 % [facility] Lymphocytes Abs 1.7 0.9 - 3.2 x10(3)/[facility] Monocytes % 8.6 % [facility] Monocyte Abs 0.7 0.3 - 0.9 x10(3)/[facility] Eosinophils % 3.4 % [facility] Eosinophils Abs 0.3 0.0 - 0.4 x10(3)/[facility] Basophils % 0.8 % [facility] Basophils Abs 0.1 0.0 - 0.1 x10(3)/[facility] Immature Gran % 0.40 % [facility] [...] 0.04 x10(3)/[facility] Blood 06/09/2021 3:37 AM EDT 06/09/2021 3:58 AM EDT Narrative Resulting Agency Comment Spec In Lab Deja SNADRA HEMATOLOGY ORDERABLE S [facility] [place] [address] * (ABNORMAL) Hemogram (06/09/2021 3:37 AM EDT) WBC 7.9 4.0 - 9.5 x10(3)/[facility] RBC 4.88 4.00 - 5.21 x10(6)/[facility] Hemoglobin 15.2 11.7 - 15.5 g/dL [facility] Hematocrit 46.5(H) 35.7 - 45.8 % [facility] MCV 95.3(H) 82.6 - 94.4 fL [facility] MCH 31.1 27.1 - 32.0 pg [facility] MCHC 32.7 31.7 - 35.0 g/dL [facility] Platelets 334 145 - 357 x10(3)/[facility] RDWSD 49.2(H) 37.0 - 46.0 [facility] RDWCV 14.5(H) 11.5 - 14.1 % [facility] MPV 10.2 7.6 - 12.9 [facility] nRBC % Auto 0.0 % [facility] nRBC Abs Auto 0.000 0.000 - 0.000 x10(3)/[facility] Blood 06/09/2021 3:37 AM EDT 06/09/2021 3:58 AM EDT Narrative Resulting Agency Comment Spec In Lab Deja SANDRA HEMATOLOGY ORDERABLE S [facility] [place] [address] * (ABNORMAL) BMP w/fasting Glucose (06/09/2021 3:37 AM EDT) Pathologist [facility] Glucose Fasting 103(H) 65 - 99 mg/dL [facility] Comment: ?Fasting* Glucose Interpretive [...] of Diabetes Mellitus, Position Statement from the [place] [employer]. ??Diabetes Care, Volume 33, Supplement 1, Mar 2009 BUN 23(H) 8 - 18 mg/dL [facility] Creatinine 0.86 0.70 - 1.20 mg/dL [facility] Sodium 137 135 - 145 mmol/L [facility] Potassium 4.1 3.5 - 5.0 mmol/L [facility] Comment: Please note: ??Patients with WBC >100,000 may have falsely elevated Potassium levels. ??For accurate Potassium quantification in these patients send serum separator tube (gold top) for subsequent determinations. ??Contact the Clinical Chemistry Laboratory if there are any questions. Chloride 102 98 - 107 mmol/L [facility] CO2 22 22 - 31 mmol/L [facility] Anion Gap 13 5 - 15 mmol/L [facility] Calcium 9.3 8.5 - 10.5 mg/dL [facility] Estimated GFR 78 >=60 mL/min/1. 73 m?? [facility] Comment: This patient? s [...] In Lab Mario Hallman MD CHEMISTRY ORDERABLES [facility] [place] [address] * Heparin (unfractionated) Level (06/08/2021 4:07 PM EDT) Heparin UFH Level <0.04 IU/mL [facility] Comment: Heparin (anti-Xa) levels [...] Mario Hallman MD HEMATOLOGY ORDERABLE S [facility] [place] [address] * XR Chest PA & Lateral (Generic) [...] who have questions please contact the health personal care home administrator that requested your imaging first. ? Narrative [...] patients who have questions please contactthe health personal care home administrator that requested your imaging first. Electronically signed by: Magda Machado MD, [facility] ([phone]), at 06/08/2021 6:00 PM Mario Hallman MD [...] who have questions please contact the health personal care home administrator that requested your imaging first. ? Narrative [...] patients who have questions please contactthe health personal care home administrator that requested your imaging first. Mario Hallman MD IMG MRI ORDERABLES * (ABNORMAL) CRP, acute inflammation (06/08/2021 11:58 AM EDT) CRP 28.1(H) <=4.9 mg/L [facility] Blood 06/08/2021 11:5 8 AM EDT 06/08/2021 12:04 PM EDT Narrative Resulting Agency Comment Spec In Lab Mario Hallman MD CHEMISTRY ORDERABLES [facility] [place] [address] * CK (06/08/2021 11:58 AM EDT) Pathologist [facility] CK, Total 30 0 - 160 unit/L [facility] Blood 06/08/2021 11:5 8 AM EDT 06/08/2021 12:04 PM EDT Narrative Resulting Agency Comment Spec In Lab Mario Hallman MD CHEMISTRY ORDERABLES Performing Organization Address City/[facility]/ZIP Co de Phone Number [facility] [place] [address] * (ABNORMAL) Sedimentation rate (06/08/2021 11:58 AM EDT) [facility] Sed Rate 53(H) 2 - 39 mm/hr [facility] [...] MD HEMATOLOGY ORDERABLE S Performing Organization Address [facility] Co de Phone Number [facility] [place] [address] * Heparin (unfractionated) Level (06/08/2021 11:58 AM EDT) [facility] Heparin UFH Level 0.77 IU/mL [facility] Comment: Heparin (anti-Xa) levels [...] MD HEMATOLOGY ORDERABLE S Performing Organization Address [facility] de Phone Number [facility] [place] [address] * urine, qualitative ([place]/[facility]/CGP/NLH) (06/08/2021 11:51 AM EDT) Spec [place] UA 1.010 1.006 - 1.030 [facility] HCG Qual Negative [facility] Comment: Dilute urine samples can result in a false negative test. Repeat testing on a first morning sample or a plasma quantitative hCG measurement is recommended. Urine 06/08/2021 11:5 1 AM EDT 06/08/2021 12:32 PM EDT Narrative Resulting Agency Comment Spec In Lab Mario Hallman MD URINE ORDERABLES Performing Organization Address [facility] de Phone Number [facility] [place] [address] * ECHO COMPLETE W CONTRAST (06/08/2021 11:09 AM EDT) Anatomical Region Laterality Modality Other 06/08/2021 9:35 AM EDT Narrative 06/08/2021 12:42 PM EDT ?[facility] ?[address] ? [place] [address] ?Voice: ?Fax: ? Echocardiogram Report Name: NEISHA, LOIDA ? Study Date: 06/08/2021 09:35 AMBP: 109/69 mmHg ? Patient Location: ICCU^432^A : 1970 ? Height: 163 cm ? Account: [id number] Age: 51 yrs ? Weight: 95 kg Gender: Female ?BSA: 2.0 m2 Ordering Physician: DONALD Referring Physician: AJ HARTMAN Performed By: Aaron Herr RDCS Reason For Study: NSTEMI (non-ST elevated myocardial infarction) Exam Location: [facility]. Interpretation Summary 1. Left ventricle is [...] significant change from prior in 08/2019. Procedure Complete-09034. Image enhancement Definity was used for left [...] Procedure Note Kai Haider MD - 06/08/2021 [facility] [address] [address] Voice: Fax: Echocardiogram Report Name: LOIDA ROQUE Study Date: 209:35 AMBP: 109/69 mmHg Patient Location:[place] [address]^A : 1970 Height: 163 cm Account: [id number] Age: 51 yrs Weight: 95 kg Gender: Female BSA: 2.0 m2 Ordering Physician: DONALD Referring Physician: AJ HARTMAN Performed By: Aaron Herr RDCS Reason For Study: NSTEMI (non-ST elevated myocardial infarction) Exam Location: [facility]. Interpretation Summary 1. Left ventricle is [...] significant change from prior in 08/2019. Procedure Complete-39122. Image enhancement Definity was used for left [...] EDT) Heparin UFH Level 1.20(Crit ical) IU/mL [facility] Comment: [...] Lab Edie Costello MD HEMATOLOGY ORDERABLE S [facility] [place] [address] * (ABNORMAL) Differential, Automated (06/08/2021 4:41 AM EDT) Neutrophils % 71.8 % [facility] Neutr Abs (ANC) 8.09(H) 1.70 - 6.10 x10(3)/mc L [facility] Lymphocytes % 18.0 % [facility] Lymphocytes Abs 2.0 0.9 - 3.2 x10(3)/mc L [facility] Monocytes % 5.7 % [facility] Monocyte Abs 0.6 0.3 - 0.9 x10(3)/mc L [facility] Eosinophils % 3.5 % [facility] Eosinophils Abs 0.4 0.0 - 0.4 x10(3)/mc L [facility] Basophils % 0.6 % [facility] Basophils Abs 0.1 0.0 - 0.1 x10(3)/mc L [facility] Immature Gran % 0.40 % [facility] Comment: Immature granulocytes(IG's)percentage and absolute count will include metamyelocytes, myelocytes, and promyelocytes. Blood smears from CBCs yielding IG's will be scanned manually for concordance. If this scan disagrees with the automated IG or if promyelocytes are noted, a manual differential will be performed. Shonda Gran Abs 0.05(H) 0.00 - 0.04 x10(3)/mc L [facility] Blood 06/08/2021 4:41 AM EDT 06/08/2021 5:11 AM EDT Narrative Resulting Agency Comment Spec In Lab Deja SANDRA HEMATOLOGY ORDERABLE S [facility] [place] [address] * (ABNORMAL) Hemogram (06/08/2021 4:41 AM EDT) WBC 11.3(H) 4.0 - 9.5 x10(3)/[facility] LABORATORY RBC 4.64 4.00 - 5.21 x10(6)/[facility] Hemoglobin 13.9 11.7 - 15.5 g/dL [facility] Hematocrit 43.0 35.7 - 45.8 % [facility] MCV 92.7 82.6 - 94.4 fL [facility] MCH 30.0 27.1 - 32.0 pg [facility] MCHC 32.3 31.7 - 35.0 g/dL [facility] Platelets 312 145 - 357 x10(3)/[facility] RDWSD 47.4(H) 37.0 - 46.0 fL [facility] RDWCV 14.3(H) 11.5 - 14.1 % [facility] MPV 10.8 7.6 - 12.9 fL [facility] nRBC % Auto 0.0 % [facility] nRBC Abs Auto 0.000 0.000 - 0.000 x10(3)/mcL [facility] Blood 06/08/2021 4:41 AM EDT 06/08/2021 5:11 AM EDT Narrative Resulting Agency Comment Spec In Lab Deja SANDRA HEMATOLOGY ORDERABLE S Performing Organization Address City/[facility]/ZIP Co de Phone Number [facility] [place] [address] * (ABNORMAL) Heparin (unfractionated) Level (06/08/2021 4:41 AM EDT) Heparin UFH Level 1.06(Crit ical) IU/mL [facility] Comment: [...] Lab Mario Hallman MD HEMATOLOGY ORDERABLE S [facility] [place] [address] * (ABNORMAL) BMP w/fasting Glucose (06/08/2021 4:41 AM EDT) Glucose Fasting 95 65 - 99 mg/dL [facility] Comment: ?Fasting* Glucose Interpretive [...] of Diabetes Mellitus, Position Statement from the [place] [employer]. ??Diabetes Care, Volume 33, Supplement 1, Mar 2009 BUN 21(H) 8 - 18 mg/dL [facility] Creatinine 0.87 0.70 - 1.20 mg/dL [facility] Sodium 138 135 - 145 mmol/L [facility] Potassium 4.1 3.5 - 5.0 mmol/L [facility] Comment: Please note: ??Patients with WBC >100,000 may have falsely elevated Potassium levels. ??For accurate Potassium quantification in these patients send serum separator tube (gold top) for subsequent determinations. ??Contact the Clinical Chemistry Laboratory if there are any questions. Chloride 103 98 - 107 mmol/L [facility] CO2 22 22 - 31 mmol/L [facility] Anion Gap 13 5 - 15 mmol/L [facility] Calcium 8.7 8.5 - 10.5 mg/dL [facility] Estimated GFR 77 >=60 mL/min/1. 73 m?? [facility] Comment: This patient? s [...] In Lab Mario Hallman MD CHEMISTRY ORDERABLES [facility] [place] [address] * Troponin (06/08/2021 4:41 AM EDT) Troponin-T <0.01 0.00 - 0.00 ng/mL [facility] Comment: The 99th percentile for Troponin T is less than 0.01 ng/mL, any detectable cTnT concentration using this assay should be considered elevated. According to the third universal definition of myocardial infarction the following criteria with a clinical presentation consistent with acute myocardial ischemia meets the diagnosis for a myocardial infarction (NH). Detection of a rise and/or fall of cTnT, with at least one value greater than the 99th percentile (> or = 0.01) and with at least one of the following ?? Symptoms of ischemia ?? New or presumed new significant SQ-orbuvcz-B wave (ST-T) changes or new left bundle [...] additional sample may be indicated. Reference: Third [place] Definition of Myocardial Infarction. Journal of the [place] [employer] 2012;60:1581-98 Blood 06/08/2021 4:41 AM EDT 06/08/2021 5:12 AM EDT Narrative Resulting Agency Comment Spec In Lab Mario Hallman MD CHEMISTRY ORDERABLES [facility] [place] [address] * Heparin (unfractionated) Level (06/07/2021 9:55 PM EDT) [facility] Heparin UFH Level 0.08 IU/mL [facility] Comment: Heparin (anti-Xa) levels [...] Lab Mario Hallman MD HEMATOLOGY ORDERABLE S [facility] [place] [place] [address] * (ABNORMAL) pro-Brain Natriuretic Peptide (06/07/2021 5:26 PM EDT) [facility] ProBNP 2,701(H) <=124 pg/mL [facility] Blood Venous Draw / Unknown 06/07/2021 5:26 PM EDT 06/07/2021 5:44 PM EDT Narrative Resulting Agency Comment Spec In Lab Deja SANDRA CHEMISTRY ORDERABLES [facility] [place] [address] * (ABNORMAL) Differential, Automated (06/07/2021 5:26 PM EDT) [facility] Neutrophils % 74.6 % [facility] Neutr Abs (ANC) 8.97(H) 1.70 - 6.10 x10(3)/[facility] Lymphocytes % 15.9 % [facility] Lymphocytes Abs 1.9 0.9 - 3.2 x10(3)/[facility] Monocytes % 6.0 % [facility] Monocyte Abs 0.7 0.3 - 0.9 x10(3)/[facility] Eosinophils % 2.6 % [facility] Eosinophils Abs 0.3 0.0 - 0.4 x10(3)/[facility] Basophils % 0.5 % [facility] Basophils Abs 0.1 0.0 - 0.1 x10(3)/[facility] Immature Gran % 0.40 % [facility] Comment: Immature granulocytes(IG's)percentage and absolute count will include metamyelocytes, myelocytes, and promyelocytes. Blood smears from CBCs yielding IG's will be scanned manually for concordance. If this scan disagrees with the automated IG or if promyelocytes are noted, a manual differential will be performed. Shonda Gran Abs 0.05(H) 0.00 - 0.04 x10(3)/[facility] Blood 06/07/2021 5:26 PM EDT 06/07/2021 5:36 PM EDT Narrative Resulting Agency Comment Spec In Lab Deja SANDRA HEMATOLOGY ORDERABLE S [facility] [place] [address] * (ABNORMAL) Hemogram (06/07/2021 5:26 PM EDT) WBC 12.0(H) 4.0 - 9.5 x10(3)/[facility] RBC 4.72 4.00 - 5.21 x10(6)/[facility] Hemoglobin 14.5 11.7 - 15.5 g/dL [facility] Hematocrit 44.0 35.7 - 45.8 % [facility] MCV 93.2 82.6 - 94.4 fL [facility] MCH 30.7 27.1 - 32.0 pg [facility] MCHC 33.0 31.7 - 35.0 g/dL [facility] Platelets 346 145 - 357 x10(3)/[facility] RDWSD 47.2(H) 37.0 - 46.0 [facility] RDWCV 14.4(H) 11.5 - 14.1 % [facility] MPV 10.6 7.6 - 12.9 [facility] nRBC % Auto 0.0 % [facility] nRBC Abs Auto 0.000 0.000 - 0.000 x10(3)/[facility] Blood 06/07/2021 5:26 PM EDT 06/07/2021 5:36 PM EDT Narrative Resulting Agency Comment Spec In Lab Deja SANDRA HEMATOLOGY ORDERABLE S [facility] [place] [place] [address] * BMP w/fasting Glucose (06/07/2021 5:26 PM EDT) Glucose Fasting 90 65 - 99 mg/dL [facility] Comment: ?Fasting* Glucose Interpretive [...] of Diabetes Mellitus, Position Statement from the [place] [employer]. ??Diabetes Care, Volume 33, Supplement 1, Mar 2009 BUN 18 8 - 18 mg/dL [facility] [...] questions. Chloride 101 98 - 107 mmol/L [facility] CO2 24 22 - 31 mmol/L [facility] Anion Gap 12 5 - 15 mmol/L [facility] Calcium 9.1 8.5 - 10.5 mg/dL [facility] Estimated GFR 60 >=60 mL/min/1. 73 m?? [facility] Comment: This patient? s [...] In Lab Mario Hallman MD CHEMISTRY ORDERABLES [facility] [place] [place] [address] * T3 Total (06/07/2021 5:26 PM EDT) T3, Total 134 80 - 200 ng/dL [facility] Blood 06/07/2021 5:26 PM EDT 06/07/2021 5:36 PM EDT Narrative Resulting Agency Comment Spec In Lab Mario Hallman MD CHEMISTRY ORDERABLES Performing Organization Address [facility] Co de Phone Number [facility] [place] [address] * T4 Total (06/07/2021 5:26 PM EDT) T4, total 6.8 5.3 - 11.6 mcg/dL [facility] Comment: Reference Interval (mcg/dL): Females: ??First Trimester: 6.3-13.5 ??Second Trimester: 7.1-14.3 ??Third Trimester: 6.9-14.1 Blood 06/07/2021 5:26 PM EDT 06/07/2021 5:36 PM EDT Narrative Resulting Agency Comment Spec In Lab Mario Hallman MD CHEMISTRY ORDERABLES Performing Organization Address [facility] de Phone Number [facility] [place] [address] * (ABNORMAL) TSH (06/07/2021 5:26 PM EDT) Pathologist [facility] TSH 5.83(H) 0.27 - 4.20 mcIU/mL [facility] Comment: Reference Interval (mcIU/mL): Females: ??First Trimester: 0.23-3.88 ??Second Trimester: 0.22-3.90 ??Third Trimester: 0.44-4.66 Blood 06/07/2021 5:26 PM EDT 06/07/2021 5:36 PM EDT Narrative Resulting Agency Comment Spec In Lab Mario Hallman MD CHEMISTRY ORDERABLES Performing Organization Address [facility] Co de Phone Number [facility] [place] [address] * Lipase (06/07/2021 5:26 PM EDT) Lipase 18 0 - 60 unit/L [facility] Blood 06/07/2021 5:26 PM EDT 06/07/2021 5:36 PM EDT Narrative Resulting Agency Comment Spec In Lab Mario Hallman MD CHEMISTRY ORDERABLES [facility] [place] [address] * Amylase (06/07/2021 5:26 PM EDT) Amylase 39 28 - 100 unit/L [facility] Blood 06/07/2021 5:26 PM EDT 06/07/2021 5:36 PM EDT Narrative Resulting Agency Comment Spec In Lab Mario Hallman MD CHEMISTRY ORDERABLES Performing Organization Address City/[facility]/ZIP Co de Phone Number [facility] [place] [address] * Lipid Panel (Reflex Direct LDL) (06/07/2021 5:26 PM EDT) Chol, Total 164 mg/dL [facility] Comment: Lower Risk: <200 mg/dL Average Risk: 200-239 mg/dL Higher Risk: >hy=857 mg/dL Triglycerides 144 mg/dL [facility] Comment: Average Risk/Lower Risk: <150 mg/dL Borderline High Risk: 150-199 mg/dL High Risk: 200-499 mg/dL Very High Risk: >it=764 mg/dL HDL 44 mg/dL [facility] Comment: Males: ?? Higher Risk: <40 mg/dL Females: ?? Higher Risk: <50 mg/dL LDL Cholesterol 91 mg/dL [facility] Comment: Lowest Risk: <100 mg/dL Lower Risk: 100-129 mg/dL Borderline High Risk: 130-159 mg/dL High Risk: 160-189 mg/dL Very High Risk: >ir=812 mg/dL Chol/HDL Ratio 3.7 ratio [facility] Lipid Interpretation See Note [facility] Comment: Lipid management should be guided by a patient? s ASCVD risk, goals and preferences. ACC/AHA Guidelines recommend high intensity statin if clinical ASCVD or LDL greater than or equal to 190 mg/dL. http://BerGenBio.com/PSJ-PPJ-Cussszoni Adults aged 40-75 with LDL 70-189 mg/dL should have their 10 year ASCVD risk estimated with the ACC/AHA ASCVD risk estimator paperboard boxes http://tools.acc.org/RVMRE-Yord-Qomqvvyqw/ Statin should be discussed if risk greater [...] Hallman MD CHEMISTRY ORDERABLES Performing Organization Address City/[facility]/ZIP Co de Phone Number [facility] [place] [address] * CK (06/07/2021 5:26 PM EDT) CK, Total 33 0 - 160 unit/L [facility] Blood 06/07/2021 5:26 PM EDT 06/07/2021 5:36 PM EDT Narrative Resulting Agency Comment Spec In Lab Mario Hallman MD CHEMISTRY ORDERABLES Performing Organization Address City/[facility]/ZIP Co de Phone Number [facility] [place] [address] * Hemoglobin A1c (06/07/2021 5:04 PM EDT) [...] 1, S67-74 Est Avg Gluc 114 mg/dL [facility] Comment: eAG [...] into estimated average glucose values. ??Diabetes Care 2008:31(8):3367-8184. Blood 06/07/2021 5:04 PM EDT 06/07/2021 5:36 PM EDT Narrative Resulting Agency Comment Spec In Lab Mario Hallman MD CHEMISTRY ORDERABLES Performing Organization Address [facility]/ZIP Co de Phone Number [facility] [place] [address] * Troponin (06/07/2021 5:04 PM EDT) [facility] Troponin-T <0.01 0.00 - 0.00 ng/mL [facility] Comment: The 99th percentile for Troponin T is less than 0.01 ng/mL, any detectable cTnT concentration using this assay should be considered elevated. According to the third universal definition of myocardial infarction the following criteria with a clinical presentation consistent with acute myocardial ischemia meets the diagnosis for a myocardial infarction (NH). Detection of a rise and/or fall of cTnT, with at least one value greater than the 99th percentile (> or = 0.01) and with at least one of the following ?? Symptoms of ischemia ?? New or presumed new significant [place]-uoynxfh-A wave (ST-T) changes or new left bundle [...] additional sample may be indicated. Reference: Third [place] Definition of Myocardial Infarction. Journal of the [place] [employer] 2012;60:1581-98 Blood 06/07/2021 5:04 PM EDT 06/07/2021 5:36 PM EDT Narrative Resulting Agency Comment Spec In Lab Mario Hallman MD CHEMISTRY ORDERABLES Performing Organization Address [facility]/ZIP Co de Phone Number [facility] [place] [address] * EKG 12 Lead (06/07/2021 4:33 PM EDT) [facility] Ventricular rate 54 BPM MUSE SYSTEM Atrial Rate 54 BPM MUSE SYSTEM P-R Interval 166 ms MUSE SYSTEM QRS Duration 86 ms MUSE SYSTEM Q-T Interval 514 ms MUSE SYSTEM QTC Calculated (Bezet) 487 ms MUSE SYSTEM Calculated P [place] 30 degrees MUSE SYSTEM Calculated R [place] 22 degrees MUSE SYSTEM Calculated T [place] 18 degrees MUSE SYSTEM INTERPRETATION Sinus bradycardia Left atrial enlargement Cannot rule out Lateral infarct , age undetermined Abnormal ECG When compared with ECG of 31-AUG-2019 07:05, No significant change was found Confirmed by MD Dalia, Willy Huerta ([id number]) on 06/09/2021 4:36:27 PM MUSE SYSTEM 06/07/2021 4:33 PM EDT 06/09/2021 4:36 PM EDT Mario Hallmna MD ECG ORDERABLES MUSE SYSTEM * COVID-19 PCR (06/07/2021 4:30 PM EDT) SARS-CoV-2 RNA PCR Not Detected Not Detected [facility] Comment: This result should [...] using the Simplexa COVID-19 Direct Assay by [employer] as authorized by the FDA issued Emergency [...] Department of Pathology and Laboratory Medicine at [facility], certified under the Clinical Laboratory Improvement [...] fact sheets at the following FDA website: https://www.fda.gov/medical-devices/sjjyxpxbmpq-vtqkssh-8373-rirad-27-nsmibcahc- use-a skmjtuaulxlpc-oblrgnt-qqucppy/bvtqy-aovtdimtsxs-kfgu SARS-CoV-2 Source HOME HEALTH SPEECH THERAPIST Swab [facility] Nasopharyngeal Swab 06/08/19 4:30 PM EDT 06/07/2021 4:45 PM EDT Comment:Symptoms->Surveillan ce Narrative Resulting Agency Comment Spec In Lab Mario Hallman MD MICROBIOLOGY - GENER AL ORDERABLES [facility] [place] [address] documented in this encounter Visit Diagnoses Diagnosis [...] PROTOCOL, Starting on 06/07/21 at 1744, Until [place] 06/08/21 at 1300, Per Protocol, START ADJUSTMENT [...] on 06/07/21 at 1845, Until Discontinued, Routine 2099 (Given - Provider: Olive Anne RN) 2101 (Given - Provider: Colette Medina, ERWIN) 0853 ([facility] Hold - Provider: Admin Adt - Reason: Transfer to a Procedural area)0929 ([facility] Unhold - Provider: Admin Adt) empagliflozin (Jardiance) Tab 10 mg 10 mg, Oral, DAILY, First dose on 06/08/21 at 1545, Until Discontinued, Routine 1717 (Given - Provider: Jo Ann Maldonado RN - Comment: awaiting medication from pharmacy) 0853 ([facility] Hold - Provider: Admin Adt - Reason: Transfer to a Procedural area)0900 (Automatically Held - Provider: Admin Adt)0929 ([facility] Unhold - Provider: Admin Adt)0940 (Given [...] area)0900 (Automatically Held - Provider: Admin Adt)0929 ([facility] Unhold - Provider: Admin Adt) furosemide [...] - Provider: Jo Ann Maldonado RN) 0853 ([facility] Hold - Provider: Admin Adt - Reason: Transfer to a Procedural area)0900 (Automatically Held - Provider: Admin Adt)0929 ([facility] Unhold - Provider: Admin Adt)0939 (Given - Provider: Jo Ann Maldonado RN) gabapentin (Neurontin) capsule 300 mg 300 mg, Oral, 2 TIMES DAILY, First dose on 06/07/21 at 2100, Until Discontinued, Routine 2026 (Given - Provider: Olive Anne RN) 0908 (Given - Provider: Jo Ann Maldonado RN)2100 (Given - Provider: Colette Medina RN) 0853 ([facility] Hold - Provider: Admin Adt - Reason: Transfer to a Procedural area)0900 (Automatically Held - Provider: Admin Adt)0929 ([facility] Unhold - Provider: Admin Adt)0940 (Given - Provider: Jo Ann Maldonado RN) lisinopriL (Zestril) tablet 2.5 mg 2.5 mg, Oral, DAILY, First dose on 06/07/21 at 1845, Until Discontinued, Routine 1844 (Not Given - Provider: Olive Anne RN - Reason: See comment - Comment: dose in AM) 0908 (Given - Provider: Jo Ann Maldonado RN) 0853 ([facility] Hold - Provider: Admin Adt - Reason: Transfer to a Procedural area)0900 (Automatically Held - Provider: Admin Adt)0929 ([facility] Unhold - Provider: Admin Adt)0939 (Given [...] takes this as needed for allergies.) 0853 ([facility] Hold - Provider: Admin Adt - Reason: Transfer to a Procedural area)0900 (Not Given - Provider: Jo Ann Maldonado RN - Reason: Patient/family refused - Comment: only takes as needed)0929 ([facility] Unhold - Provider: Admin Adt) metoprolol [...] not met - Comment: HR 56) 0853 ([facility] Hold - Provider: Admin Adt - Reason: Transfer to a Procedural area)0900 (Not Given - Provider: Jo Ann Maldonado RN - Reason: Order parameters not met - Comment: HR 48)0929 ([facility] Unhold - Provider: Admin Adt) montelukast (Singulair) tablet 10 mg 10 mg, Oral, NIGHTLY, First dose on 06/07/21 at 2100, Until Discontinued 2025 (Given - Provider: Olive Anne RN) 2058 (Given - Provider: Colette Medina RN) 0853 ([facility] Hold - Provider: Admin Adt - Reason: Transfer to a Procedural area)0929 ([facility] Unhold - Provider: Admin Adt) rOPINIRole [...] medication from pharmacy)2110 (Given - Provider: Colette Medina, ERWIN) 0853 [...] Wed06/09/21 at 1531, Shortness of Breath, Routine 0853 ([facility] Hold - Provider: Admin Adt - Reason: Transfer to a Procedural area)09 ([facility] Unhold - Provider: Admin Adt) atropine [...] 2107, Until 06/09/21 at 1531, Pain, Routine 6 (Given - Provider: Colette Medina RN) 0853 [...] Routine documented in this encounter Care Teams Lockstitch Sleeve Maker Relationship Specialty Start Date End Date Polo Pearce PA [address] [place] [address] PCP - General Internal Medicine 06/09/21 documented as of this encounter
--- OUTSIDE RECORDS SUMMARY | 2023-10-02 22:49 | XMS_ITS | Encounter Summary ---
Author Organization [facility] [place] [address] Care Team Providers Care Balancing Machine Operator Name Role Phone Tim Rogers DNP Primary Care Provider Encounter Details Date Type Department Care Team (Late st Contact Info) Description 05/06/2020 [place]phone [place] [phone] Virginia Marc Social History Tobacco Use Types [...] AM EDT Tech [place] [phone] [place] 10/08/2023 9:30 AM EDT Office [place] [address] MD [facility] [place] [address] 10/21/2023 10:30 AM EDT Appointment [place] [address] Mary Reyes [facility] [address] 10/21/2023 11:30 AM EDT Appointment [place] [address] Mary Reyes [place] [address] 10/21/2023 12:30 PM EDT Appointment [place] [address] Mary Reyes [place] [address] 10/21/2023 1:30 PM EDT Appointment [place] [address] Mary Reyes [place] [address] 10/21/2023 2:30 PM EDT Appointment [place] [address] Mary Reyes [place] [address] 10/26/2023 4:00 PM EDT Office Visit Cardiology at [address] [phone] Jaspreet Kinsey MD [facility] [place] [address] 10/28/2023 9:00 AM EDT Office [place] [address] 10/29/2023 10:00 AM EDT Clinical Support [place] [address] 10/29/2023 10:15 AM EDT Procedure visit [place] [address] 11/01/2023 5:00 PM EDT Office [place] [address] Selene Browning, PhD [facility] [place] [address] 11/22/2023 4:40 PM EDT Office Visit Cardiology at [address] [phone] Porsha Mcdaniels MD [facility] [place] [address] 12/13/2023 10:00 AM EDT Clinical [place] [address] Lucero Romero, RD [facility] [place] [address] documented as of this encounter Visit Diagnoses Not on filedocumented in this encounter Care Teams Balancing Machine Operator Relationship Specialty Start Date End Date Tim Rogers DNP PCP - General Family Medicine 08/28/19 06/08/21 documented as of this encounter
--- OUTSIDE RECORDS SUMMARY | 2023-10-02 22:49 | XMS_ITS | Encounter Summary ---
[place] [address] Care Team Providers Care Directional Drill Operator Name Role Phone Tim Rogers DNP Primary Care Provider +1 [phone] Reason for Visit * Reason Onset Date Comments Nasal Congestion 09/02/2020 Cough 09/02/2020 Shortness of Breath 09/02/2020 Anorexia 09/02/2020 Lack of appetite Encounter Details Date Type Department Care Team (Late st Contact Info) Description 09/02/2020 [place] [phone] Renetta Graham RN Nasal Congestion; Cough; Shortness [...] radha annita. Return Contact Number: Work - [phone], ask for Mihaela Preferred Pharmacy: [facility] on file. documented in this encounter Plan of Treatment Upcoming Encounters Date Type Department Care Team (Late st Contact Info) Description 10/08/2023 8:30 AM EDT Tech [place] [phone] Channing Escobedo [place] 10/08/2023 9:30 AM EDT Office [place] [phone] MD [facility] [place] [address] 10/21/2023 10:30 AM EDT Appointment [place] [phone] Mary Reyes APRN [facility] [place] [address] 10/21/2023 11:30 AM EDT Appointment [place] [address] Mary Reyes [facility] [place] [address] 10/21/2023 12:30 PM EDT Appointment [place] [address] Mary Reyes [facility] [place] [address] 10/21/2023 1:30 PM EDT Appointment [place] [address] [place] [address] 10/21/2023 2:30 PM EDT Appointment [place] [address] [place] [address] 10/26/2023 4:00 PM EDT Office Visit Cardiology at [address] [phone] Jaspreet Kinsey MD [facility] [place] [address] 10/28/2023 9:00 AM EDT Office [place] [address] 10/29/2023 10:00 AM EDT Clinical [place] [address] 10/29/2023 10:15 AM EDT Procedure [place] [address] 11/01/2023 5:00 PM EDT Office Visit Gastroenterology at [place] [phone] Selene Browning, PhD [facility] [place] [address] 11/22/2023 4:40 PM EDT Office Visit Cardiology at [place] [phone] Porsha Mcdaniels MD [facility] [place] [address] 12/13/2023 10:00 AM EDT Clinical [place] [phone] [facility] [place] [address] documented as of this encounter Visit Diagnoses Not on filedocumented in this encounter Care Teams Directional Drill Operator Relationship Specialty Start Date End Date Tim Rogers DNP PCP - General Family Medicine 08/28/19 06/08/21 documented as of this encounter
--- OUTSIDE RECORDS SUMMARY | 2023-10-02 22:49 | XMS_ITS | Encounter Summary ---
[place] [address] Care Team Providers Care Application Packaging Consultant Name Role Phone Tim Rogers DNP Primary Care Provider Encounter Details Date Type Department Care Team (Late st Contact Info) Description 05/28/2021 Telephone [place] [phone] Beryl Grider Social History Tobacco Use Types [...] AM EDT Tech Visit Vascular Lab at [facility] [place] [address] Channing Escobedo [place] 10/08/2023 9:30 AM EDT Office Visit Vascular Surgery at [address] MD [facility] [place] [address] 10/21/2023 10:30 AM EDT Appointment Nuclear Medicine at [place] [phone] Mary Reyes [place] [address] 10/21/2023 11:30 AM EDT Appointment Nuclear Medicine at [place] [phone] Mary Reyes [place] [address] 10/21/2023 12:30 PM EDT Appointment Nuclear Medicine at [place] [phone] Mary Reyes [place] [address] 10/21/2023 1:30 PM EDT Appointment [place] [address] Mary Reyes [place] [address] 10/21/2023 2:30 PM EDT Appointment [place] [address] Mary Reyes [facility] [place] [address] 10/26/2023 4:00 PM EDT Office Visit Cardiology at [address] [address] Jaspreet Kinsey MD [facility] [place] [address] 10/28/2023 9:00 AM EDT Office [place] [address] 10/29/2023 10:00 AM EDT Clinical [place] [address] 10/29/2023 10:15 AM EDT Procedure [place] [address] 11/01/2023 5:00 PM EDT Office [place] [phone] Selene Browning, PhD [facility] [place] [address] 11/22/2023 4:40 PM EDT Office Visit Cardiology at [address] [phone] Porsha Mcdainels MD [facility] [place] [address] 12/13/2023 10:00 AM EDT Clinical Support [place] [phone] Lucero Romero, RD [facility] [place] [address] documented as of this encounter Visit Diagnoses Not on filedocumented in this encounter Care Teams Application Packaging Consultant Relationship Specialty Start Date End Date Tim Rogers DNP PCP - General Family Medicine 08/28/19 06/08/21 documented as of this encounter
--- OUTSIDE RECORDS SUMMARY | 2023-10-02 22:49 | XMS_ITS | Encounter Summary ---
[place] [address] Care Team Providers Care Pocket Assembler Name Role Phone Tim Rogers DNP Primary Care Provider [phone] Reason for Visit * Reason Onset Date Comments Other 10/18/2020 Pt requesting ca ll back from MD Encounter Details Date Type Department Care Team (Late st Contact Info) Description 10/18/2020 Tele[place] [phone] Olive Gonzales RN Other (Pt requesting call [...] She requests call back on work phone. Olvie Gonzales RN Department of Pulmonary 5C, [facility] / Pager: [phone] documented in this encounter Plan of Treatment Upcoming Encounters Date Type Department Care Team (Late st Contact Info) Description 10/08/2023 8:30 AM EDT Tech Visit Vascular Lab at [place] [phone] Channing Escobedo [place] 10/08/2023 9:30 AM EDT Office [place] [address] MD [facility] [place] [address] 10/21/2023 10:30 AM EDT Appointment Nuclear Medicine at [place] [phone] Mary Reyes [facility] [place] [address] 10/21/2023 11:30 AM EDT Appointment Nuclear Medicine at [place] [phone] [place] [address] 10/21/2023 12:30 PM EDT Appointment [place] [address]-1000 Mary Reyes [facility] [place] [address] 10/21/2023 1:30 PM EDT Appointment [place] [phone] Mary Reyes [facility] [place] [address] 10/21/2023 2:30 PM EDT Appointment [place] [address] [place] [address] 10/26/2023 4:00 PM EDT Office Visit Cardiology at [address] [phone] Jaspreet Kinsey MD [facility] [place] [address] 10/28/2023 9:00 AM EDT Office Visit [place] [address] 10/29/2023 10:00 AM EDT Clinical Support [place] [address] 10/29/2023 10:15 AM EDT Procedure visit [place] [address] 11/01/2023 5:00 PM EDT Office [place] [address] Selene Browning, [facility] [place] [address] 11/22/2023 4:40 PM EDT Office Visit Cardiology at [address] [phone] Porsha Mcdaniels MD [facility] [place] [address] 12/13/2023 10:00 AM EDT Clinical Support [place] [address] Lucero Romero, RD [facility] [place] [address] documented as of this encounter Visit Diagnoses Not on filedocumented in this encounter Care Teams Pocket Assembler Relationship Specialty Start Date End Date Tim Rogers DNP PCP - General Family Medicine 08/28/19 06/08/21 documented as of this encounter
--- OUTSIDE RECORDS SUMMARY | 2023-10-02 22:49 | XMS_ITS | Encounter Summary ---
Author Organization [facility] [place] [address] Care Team Providers Care Rotary Rig Engine Operator Name Role Phone Tim Rogers DNP Primary Care Provider [phone] Encounter Details Date Type Department Care Team (Latest Contact Info) Description 08/01/2020 11:42 AM EDT - 08/01/2020 11:59 PM EDT Hospital En[place] [address]-1000 Dyspnea, unspecified type Discharge Disposition: Home Social [...] as needed. fluticasone propionate (FLONASE) 50 mcg/actuation [place], Suspension 1 spray by Each Nare route [...] AM EDT Tech Visit [place] [address]-1000 Channing Escobedo [place] 10/08/2023 9:30 AM EDT Office [place] [address]-[address] MD [facility] [place] [address] 10/21/2023 10:30 AM EDT Appointment Nuclear Medicine at [address]1000 Mary Reyes [facility] [address] 10/21/2023 11:30 AM EDT Appointment Nuclear Medicine at [address]1000 Mary Reyes [facility] [address] 10/21/2023 12:30 PM EDT Appointment [place] [address]-1000 Mary Reyes [facility] [address] 10/21/2023 1:30 PM EDT Appointment Nuclear Medicine at [place] [phone] Mary Reyes [facility] [address] 10/21/2023 2:30 PM EDT Appointment [place] [address] Mary Reyes [facility] [address] 10/26/2023 4:00 PM EDT Office Visit Cardiology at [address] [phone] Jaspreet Kinsey MD [facility] [place] [address] 10/28/2023 9:00 AM EDT Office Visit [place] [address] 10/29/2023 10:00 AM EDT Clinical Support [place] [address] 10/29/2023 10:15 AM EDT Procedure visit [place] [address] 11/01/2023 5:00 PM EDT Office [place] [phone] Selene Browning, PhD [facility] [place] [address] 11/22/2023 4:40 PM EDT Office Visit Cardiology at [address] [phone] Porsha Mcdaniels MD [facility] [place] [address] 12/13/2023 10:00 AM EDT Clinical [place] [phone] [facility] [place] [address] documented as of this encounter Procedures Procedure [...] / FVC LLN 69 % COMPAS PFT EFJ49-24 Actual Pre-BD 3.14 L/s COMPAS PFT SQW52-49 Pre-BD % of Predicted 116 % COMPAS PFT PYZ35-95 Predicted 2.70 L/s COMPAS PFT VMI10-27 Pre-BD Z-Score 0.51 COMPAS PFT FVC Actual [...] PFT FEV1/FVC Post-BD Z-Score 1.94 COMPAS PFT AGN47-07 Actual Post-BD 4.26 L/s COMPAS PFT RKL36-06 Post-BD % of Predicted 158 % COMPAS PFT JFK93-77 Post-BD Z-Score 1.67 COMPAS PFT DLCO Hb [...] type documented in this encounter Care Teams Rotary Rig Engine Operator Relationship Specialty Start Date End Date Tim Rogers DNP PCP - General Family Medicine 08/28/19 06/08/21 documented as of this encounter
--- OUTSIDE RECORDS SUMMARY | 2023-10-02 22:49 | XMS_ITS | Encounter Summary ---
Author Organization [facility] [place] [address] Care Team Providers Care Mop Machine Operator Name Role Phone Tmi Rogers DNP Primary Care Provider +1 [phone] Encounter Details Date Type Department Care Team (Late st Contact Info) Description 09/09/2020 Tele[place] [address] Beto Miller MD [facility] [place] [address] Social History Tobacco Use Types Packs/Day Years [...] ?? I reviewed CT scans performed in [facility] in 2019 (w/contrast) and April 2020 [...] the 2020 CT given the motion artifacts. Platen Press Operator Apprentice images are below Combination of eosinophilia, adenopathy, [...] Diff) Please fax results to Dr Miller [phone] Standing Status: Future Standing Expiration Date: 03/11/2021 ??? Basic Metabolic Panel (non-fasting) Please fax results to Dr Miller [phone] Standing Status: Future Standing Expiration Date: 03/11/2021 ??? KATHRINE [place]APD/NLH[place] Please fax results to Dr Miller [phone] Standing Status: Future Standing Expiration Date: 03/11/2021 ??? Extractable Nuclear Antigen (JENNA) Ab Please fax results to Dr Miller [phone] Standing Status: Future Standing Expiration Date: 03/11/2021 ??? Angiotensin Converting Enzyme Please fax results to Dr Miller [phone] Standing Status: Future Standing Expiration Date: 03/11/2021 ??? CRP, acute inflammation Please fax results to Dr Miller [phone] Standing Status: Future Standing Expiration Date: 03/11/2021 ??? Cytoplasmic Neutrophilic Ab Please fax results to Dr Miller [phone] Standing Status: Future Standing Expiration Date: 09/09/2021 ??? Myeloperoxidase Ab Please fax results to Dr Miller [phone] Standing Status: Future Standing Expiration Date: 09/09/2021 ??? Proteinase-3 Antibody Please fax results to Dr Miller [phone] Standing Status: Future Standing Expiration Date: 09/09/2021 ??? Immunoglobulin E (IgE) Please fax results to Dr Miller [phone] Standing Status: Future Standing Expiration Date: 09/09/2021 ??? Immunoglobulins, Quantitative Standing Status: Future Standing Expiration Date: 09/09/2021 documented in this encounter Plan of Treatment Upcoming Encounters Date Type Department Care Team (Late st Contact Info) Description 10/08/2023 8:30 AM EDT Tech [place] [address] Channing Escobedo [place] 10/08/2023 9:30 AM EDT Office Visit [place] [phone] MD [facility] [place] [address] 10/21/2023 10:30 AM EDT Appointment [place] [address] Mary Reyes [facility] [address] 10/21/2023 11:30 AM EDT Appointment Nuclear Medicine at [place] [phone] Mary Reyes [facility] [address] 10/21/2023 12:30 PM EDT Appointment Nuclear Medicine at [place] [phone] Mary Reyes [facility] [address] 10/21/2023 1:30 PM EDT Appointment [place] [address] Mary Reyes [facility] [address] 10/21/2023 2:30 PM EDT Appointment [place] [address] Mary Reyes [facility] [address] 10/26/2023 4:00 PM EDT Office Visit Cardiology at [address] [address] Jaspreet Kinsey MD [facility] [place] [address] 10/28/2023 9:00 AM EDT Office Visit [place] [address] 10/29/2023 10:00 AM EDT Clinical Support [place] [address] 10/29/2023 10:15 AM EDT Procedure [place] [address] 11/01/2023 5:00 PM EDT Office [place] [address] Selene Browning, PhD [facility] [address] 11/22/2023 4:40 PM EDT Office Visit Cardiology at [address] [address] Porsha Mcdaniels MD [facility] [place] [address] 12/13/2023 10:00 AM EDT Clinical [place] [address] Lucero Romero, RD [facility] [place] [place] [address] documented as of this encounter Visit Diagnoses Diagnosis Acute recurrent sinusitis, unspecified location RAVI (dyspnea on exertion) Other dyspnea and respiratory abnormality Abnormal CT of the chest Nonspecific (abnormal) findings on radiological and other examination of other intrathoracic organs documented in this encounter Care Teams Mop Machine Operator Relationship Specialty Start Date End Date Tim Rogers DNP PCP - General Family Medicine 08/28/19 06/08/21 documented as of this encounter
--- OUTSIDE RECORDS SUMMARY | 2023-10-02 22:49 | XMS_ITS | Encounter Summary ---
[place] [address] Care Team Providers Care Burner Operator Name Role Phone Tim Rogers DNP Primary Care Provider [phone] [phone] Encounter Details Date Type Department Care Team (Late st Contact Info) Description 05/30/2021 Telephone [place] [phone] Beryl Grider Social History Tobacco Use Types [...] Beryl Grider - 05/30/2021 11:10 AM EDTSummary: [facility] Per Dr. Miller via [place], needs images sent to our PACS system for mutual pt. Called PCP's (Polo Pearce) office at [facility] & Nayeli Martin in Radiology to Assist in sending images of chest x- ray from May 03 & CT scan of abdomen ( maybe chest) from May 27 to our PACS system with Pulm # [phone] opt 1 documented in this encounter Plan of Treatment Upcoming Encounters Date Type Department Care Team (Late st Contact Info) Description 10/08/2023 8:30 AM EDT Tech Visit Vascular Lab at [place] [phone] Channing Escobedo [place] 10/08/2023 9:30 AM EDT Office Visit [place] [address] [facility] [place] [address] 10/21/2023 10:30 AM EDT Appointment Nuclear Medicine at [place] [phone] [place] [address] 10/21/2023 11:30 AM EDT Appointment Nuclear [place] [phone] [place] [address] 10/21/2023 12:30 PM EDT Appointment [place] [address] [place] [address] 10/21/2023 1:30 PM EDT Appointment [place] [address] Mary Reyes [facility] [place] [address] 10/21/2023 2:30 PM EDT Appointment Nuclear Medicine at [place] [phone] Mary Reyes APRN [facility] [place] [address] 10/26/2023 4:00 PM EDT Office Visit Cardiology at [address] [address] Jaspreet Kinsey MD [facility] [place] [address] 10/28/2023 9:00 AM EDT Office [place] [address] 10/29/2023 10:00 AM EDT Clinical [place] [address] 10/29/2023 10:15 AM EDT Procedure [place] [address] 11/01/2023 5:00 PM EDT Office Visit Gastroenterology at [place] [phone] Selene Browning, PhD [facility] [place] [address] 11/22/2023 4:40 PM EDT Office Visit Cardiology at [address] [phone] Porsha Mcdaniels MD [facility] [place] [address] 12/13/2023 10:00 AM EDT Clinical Support [place] [address]839[address]-1000 Lucero Romero, RD [facility] [place] [address] documented as of this encounter Visit Diagnoses Not on filedocumented in this encounter Care Teams Burner Operator Relationship Specialty Start Date End Date Tim Rogers DNP PCP - General Family Medicine 08/28/19 06/08/21 documented as of this encounter
--- OUTSIDE RECORDS SUMMARY | 2023-10-02 22:49 | XMS_ITS | Encounter Summary ---
Author Organization [facility] [place] [address] Care Team Providers Care Combo Welder Name Role Phone Tim Rogers DNP Primary Care Provider Encounter Details Date Type Department Care Team (Late st Contact Info) Description 04/26/2020 Orders [place] [address]-1000 Bull Fitzgerald MD [facility] [place] [address] Dyspnea, unspecified type (Primary Dx) Social History [...] AM EDT Tech [place] [address]1000 Channing Escobedo [place] 10/08/2023 9:30 AM EDT Office [place] [address] MD [facility] [place] [address] 10/21/2023 10:30 AM EDT Appointment Nuclear Medicine at [place] [phone] Mary [place] [address] 10/21/2023 11:30 AM EDT Appointment Nuclear Medicine at [place] [phone] Mary [place] [address] 10/21/2023 12:30 PM EDT Appointment [place] [address] Mary Re[place] [address] 10/21/2023 1:30 PM EDT Appointment [place] [address]-1000 Mary [place] [address] 10/21/2023 2:30 PM EDT Appointment [place] [address]-1000 Mary [place] [address] 10/26/2023 4:00 PM EDT Office Visit Cardiology at [address] [phone] Jaspreet Kinsey MD [facility] [address] 10/28/2023 9:00 AM EDT Office [place] [address] 10/29/2023 10:00 AM EDT Clinical [place] [address] 10/29/2023 10:15 AM EDT Procedure [place] [address] 11/01/2023 5:00 PM EDT Office [place] [phone] Selene Browning, PhD [facility] [place] [address] 11/22/2023 4:40 PM EDT Office Visit Cardiology at [address] [phone] Porsha Mcdaniels MD [facility] [address] 12/13/2023 10:00 AM EDT Clinical [place] [address]-[address] [facility] [place] [address] documented as of this encounter Results * [...] / FVC LLN 69 % COMPAS PFT HKS99-77 Actual Pre-BD 3.14 L/s COMPAS PFT IZZ96-88 Pre-BD % of Predicted 116 % COMPAS PFT SHJ69-11 Predicted 2.70 L/s COMPAS PFT NZM39-49 Pre-BD Z-Score 0.51 COMPAS PFT FVC Actual [...] PFT FEV1/FVC Post-BD Z-Score 1.94 COMPAS PFT MGU75-93 Actual Post-BD 4.26 L/s COMPAS PFT VZR49-65 Post-BD % of Predicted 158 % COMPAS PFT EMH40-95 Post-BD Z-Score 1.67 COMPAS PFT DLCO Hb [...] type documented in this encounter Care Teams Combo Welder Relationship Specialty Start Date End Date Tim Rogers DNP PCP - General Family Medicine 08/28/19 06/08/21 documented as of this encounter
--- OUTSIDE RECORDS SUMMARY | 2023-10-02 22:49 | XMS_ITS | Encounter Summary ---
[place] [address] Care Team Providers Care Patient Account Representative Name Role Phone Tim Rogers DNP Primary Care Provider Encounter Details Date Type Department Care Team (Late st Contact Info) Description 03/23/2021 Ancillary Procedure [place] [phone] Tim Rogers DNP [address] [place] [address] Social History Tobacco Use Types [...] Tech [place] [phone] Channing Escob[place] 10/08/2023 9:30 AM EDT Office [place] [address] MD [facility] [place] [address] 10/21/2023 10:30 AM EDT Appointment Nuclear Medicine at [place] [phone] Mary Reyes [facility] [place] [address] 10/21/2023 11:30 AM EDT Appointment [place] [phone] [place] [address] 10/21/2023 12:30 PM EDT Appointment [place] [phone] Mary Reyes [facility] [place] [address] 10/21/2023 1:30 PM EDT Appointment [place] [phone] Mary Reyes [facility] [place] [address] 10/21/2023 2:30 PM EDT Appointment [place] [phone] Mary Reyes [facility] [place] [address] 10/26/2023 4:00 PM EDT Office Visit Cardiology at [address] [phone] Jaspreet Kinsey MD [facility] [place] [address] 10/28/2023 9:00 AM EDT Office [place] [address] 10/29/2023 10:00 AM EDT Clinical [place] [address] 10/29/2023 10:15 AM EDT Procedure [place] [address] 11/01/2023 5:00 PM EDT Office [place] [phone] Selene Browning, PhD [facility] [place] [address] 11/22/2023 4:40 PM EDT Office Visit Cardiology at [address] [address] Porsha Mcdaniels MD [facility] [place] [address] 12/13/2023 10:00 AM EDT Clinical [place] [phone] [facility] [place] [place] [address] documented as of this encounter Procedures Procedure Name Priority Date/Time Associated Diagnosis Comments FILM LIBRARY STORAGE ONLY DX CHEST Routine 03/23/2021 12:00 AM EST documented in this encounter Results * Film Library- Storage Only DX Chest (03/23/2021 12:00 AM EST) Narrative [facility] - 04/03/2021 11:45 AM EST This exam is auto-finalizing. It's purpose is for storage only. Tim Rogers DNP IMG FILM LIBRARY OR DERABLES Performing Organization Address City/State/[facility] Co de Phone Number [place], [place] documented in this encounter Visit Diagnoses Not on filedocumented in this encounter Care Teams Patient Account Representative Relationship Specialty Start Date End Date Tim Rogers DNP PCP - General Family Medicine 08/28/19 06/08/21 documented as of this encounter
--- OUTSIDE RECORDS SUMMARY | 2023-10-02 22:49 | XMS_ITS | Encounter Summary ---
[place] [address] Care Team Providers Care Site Safety Coordinator Name Role Phone Tim Rogers DNP Primary Care Provider [phone] Encounter Details Date Type Department Care Team (Late st Contact Info) Description 05/27/2021 Ancillary Procedure [place] [phone] Tim Rogers DNP [address] [place] [address] Social History Tobacco Use Types [...] AM EDT Tech [place] [phone] [place]anning [place] 10/08/2023 9:30 AM EDT Office [place] [address] MD [facility] [place] [address] 10/21/2023 10:30 AM EDT Appointment Nuclear Medicine at [place] [phone] Mary Reyes [facility] [place] [place] [address] 10/21/2023 11:30 AM EDT Appointment [place] [phone] [place] [address] 10/21/2023 12:30 PM EDT Appointment [place] [phone] Mary Reyes [facility] [place] [address] 10/21/2023 1:30 PM EDT Appointment [place] [phone] Mary Reyse [facility] [place] [address] 10/21/2023 2:30 PM EDT Appointment [place] [phone] Mary Reyes [facility] [place] [address] 10/26/2023 4:00 PM EDT Office Visit Cardiology at [address] [phone] Jaspreet Kinsey MD [facility] [place] [address] 10/28/2023 9:00 AM EDT Office Visit [place] [address] 10/29/2023 10:00 AM EDT Clinical Support [place] [address] 10/29/2023 10:15 AM EDT Procedure visit Gastroenter[place] [address] 11/01/2023 5:00 PM EDT Office [place] [phone] Selene Browning, PhD [facility] [place] [address] 11/22/2023 4:40 PM EDT Office Visit Cardiology at [address] [phone] Porsha Mcdaniels MD [facility] [place] [address] 12/13/2023 10:00 AM EDT Clinical Support [place] [phone] Lucero Romero, [facility] [place] [address] documented as of this encounter Procedures Procedure Name Priority Date/Time Associated Diagnosis Comments FILM LIBRARY STORAGE ONLY CT ABDOMEN AND PELVIS Routine 05/27/2021 12:00 AM EDT documented in this encounter Results * Film Library- Storage Only CT Abdomen & Pelvis (05/27/2021 12:00 AM EDT) Narrative [facility] - 05/30/2021 2:30 PM EDT This exam is auto-finalizing. It's purpose is for storage only. Tim Rogers DNP IMG FILM LIBRARY OR DERABLES [place], [place] documented in this encounter Visit Diagnoses Not on filedocumented in this encounter Care Teams Site Safety Coordinator Relationship Specialty Start Date End Date Tim Rogers DNP PCP - General Family Medicine 08/28/19 06/08/21 documented as of this encounter
--- OUTSIDE RECORDS SUMMARY | 2023-10-02 22:49 | XMS_ITS | Encounter Summary ---
Author Organization [facility] [place] [address] Care Team Providers Care Manugrapher Name Role Phone Tim Rogers DNP Primary Care Provider [phone] Encounter Details Date Type Department Care Team (Late st Contact Info) Description 07/12/2020 Telephone [place] [phone] Jo Ann Colon Social History Tobacco Use [...] AM EDT Tech Visit Vascular [place] [address]-1000 Channing Escob[place] 10/08/2023 9:30 AM EDT Office Visit [place] [phone] MD [facility] [place] [address] 10/21/2023 10:30 AM EDT Appointment [place] [address] [place] [address] 10/21/2023 11:30 AM EDT Appointment [place] [address] [place] [address] 10/21/2023 12:30 PM EDT Appointment [place] [address] [place] [address] 10/21/2023 1:30 PM EDT Appointment [place] [address] [place] [address] 10/21/2023 2:30 PM EDT Appointment [place] [address] [place] [address] 10/26/2023 4:00 PM EDT Office Visit Cardiology at [address] [phone] Jaspreet Kinsey MD [facility] [place] [address] 10/28/2023 9:00 AM EDT Office [place] [address] 10/29/2023 10:00 AM EDT Clinical [place] [address] 10/29/2023 10:15 AM EDT Procedure [place] [address] 11/01/2023 5:00 PM EDT Office Visit [place] [address] Selene Browning, PhD [facility] [place] [address] 11/22/2023 4:40 PM EDT Office Visit Cardiology at [address] [phone] Porsha Mcdaniels MD [facility] [place] [address] 12/13/2023 10:00 AM EDT Clinical Support [place] [address] Lucero Romero, [place]VA [facility] [place] [address] documented as of this encounter Visit Diagnoses Not on filedocumented in this encounter Care Teams Manugrapher Relationship Specialty Start Date End Date Tim Rogers DNP PCP - General Family Medicine 08/28/19 06/08/21 documented as of this encounter
--- OUTSIDE RECORDS SUMMARY | 2023-10-02 22:49 | XMS_ITS | Encounter Summary ---
Author Organization [facility] [place] [address] Care Team Providers Care Atomic Welder Name Role Phone Tim Rogers DNP Primary Care Provider [phone] Encounter Details Date Type Department Care Team (Late st Contact Info) Description 08/02/2020 Telephone [place] [phone] Olive Frazier Social History Tobacco Use Types [...] AM EDT Tech Visit [place] [phone] Channing Esc[place] 10/08/2023 9:30 AM EDT Office Visit [place] [phone] [facility] [place] [place] [address] 10/21/2023 10:30 AM EDT Appointment [place] [address] Mary Reyes [facility] [place] [address] 10/21/2023 11:30 AM EDT Appointment [place] [address] Mary Reyes [facility] [place] [address] 10/21/2023 12:30 PM EDT Appointment [place] [address] Mary Reyes [facility] [place] [address] 10/21/2023 1:30 PM EDT Appointment [place] [address] [place] [address] 10/21/2023 2:30 PM EDT Appointment [place] [address] Mary Reyes [facility] [place] [address] 10/26/2023 4:00 PM EDT Office Visit Cardiology at [address] [phone] [facility] [place] [address] 10/28/2023 9:00 AM EDT Office Visit [place] [address] 10/29/2023 10:00 AM EDT Clinical Support [place] [address] 10/29/2023 10:15 AM EDT Procedure visit [place] [address] 11/01/2023 5:00 PM EDT Office Visit [place] [address] Selene Browning, PhD [facility] [place] [address] 11/22/2023 4:40 PM EDT Office Visit Cardiology at [address] [address] [facility] [place] [address] 12/13/2023 10:00 AM EDT Clinical Support [place] [address] Lucero Romero, RD [facility] [place] [place] [address] documented as of this encounter Visit Diagnoses Not on filedocumented in this encounter Care Teams Atomic Welder Relationship Specialty Start Date End Date Tim Rogers DNP PCP - General Family Medicine 08/28/19 06/08/21 documented as of this encounter
--- OUTSIDE RECORDS SUMMARY | 2023-10-02 22:49 | XMS_ITS | Encounter Summary ---
[place] [address] Care Team Providers Care Party Plan Sales Consultant Name Role Phone Tim Rogers DNP Primary Care Provider [phone] Reason for Visit * Reason Onset Date Comments Appointment 09/12/2020 Follow up Encounter Details Date Type Department Care Team (Late st Contact Info) Description 09/12/2020 [place] [phone] Renetta Graham RN Appointment (Follow up) Social [...] EDT Tech Visit [place] [address]-1000 Channing Escob[place] 10/08/2023 9:30 AM EDT Office [place] [address]-[address] MD [facility] [place] [address] 10/21/2023 10:30 AM EDT Appointment [place] [address]-1000 [place] [address] 10/21/2023 11:30 AM EDT Appointment [place] [phone] Mary Re[place] [address] 10/21/2023 12:30 PM EDT Appointment [place] [address]-1000 Mary Reyes MACH[employer] B [facility] [place] [address] 10/21/2023 1:30 PM EDT Appointment [place] [address]-1000 Mary Reyes [facility] [place] [address] 10/21/2023 2:30 PM EDT Appointment [place] [address]-1000 [place] [address] 10/26/2023 4:00 PM EDT Office Visit Cardiology at [address] [phone] Jaspreet Kinsey MD [facility] [place] [address] 10/28/2023 9:00 AM EDT Office [place] [address] 10/29/2023 10:00 AM EDT Clinical [place] [address] 10/29/2023 10:15 AM EDT Procedure [place] [address] 11/01/2023 5:00 PM EDT Office [place] [phone] Selene Browning, PhD [facility] [place] [address] 11/22/2023 4:40 PM EDT Office Visit Cardiology at [address] [phone] Porsha Mcdaniels MD [facility] [place] [address] 12/13/2023 10:00 AM EDT Clinical [place] [address] [facility] [place] [place] [address] documented as of this encounter Visit Diagnoses Not on filedocumented in this encounter Care Teams Party Plan Sales Consultant Relationship Specialty Start Date End Date Tim Rogers DNP PCP - General Family Medicine 08/28/19 06/08/21 documented as of this encounter
--- OUTSIDE RECORDS SUMMARY | 2023-10-02 22:49 | XMS_ITS | Encounter Summary ---
Author Organization [facility] [place] [address] Care Team Providers Care Clinical Microbiologist Name Role Phone Tim Rogers DNP Primary Care Provider [phone] Reason for Visit * - Closed Specialty Diagnoses / Procedures Referred By Jayant harris Referred To Contact Procedures Film Library- Storage Only CT Chest Tim Rogers DNP [address] [place] [address] Referral ID Status Reason Start Date Expiration Date Visits Re quested Visits Authorized [id number] Closed 08/02/2020 08/02/2021 1 1 Encounter Details Date Type Department Care Team (Late Contact Info) Description 04/26/2020 Ancillary Procedure [place] [address] Tim Rogers DNP [address] [place], [place] [address] Social History Tobacco Use Types Packs/Day Years [...] Tech Visit Vascular Lab at [place] [phone] Channing Escobedo [place] 10/08/2023 9:30 AM EDT Office [place] [address] MD [facility] [place] [address] 10/21/2023 10:30 AM EDT Appointment Nuclear Medicine at [place] [phone] [place] [address] 10/21/2023 11:30 AM EDT Appointment [place] [address]-1000 [place] [address] 10/21/2023 12:30 PM EDT Appointment [place] [address]-1000 Mary Reyes [facility] [address] 10/21/2023 1:30 PM EDT Appointment [place] [address]-064056-1000 Mary Reyes [facility] [place] [address] 10/21/2023 2:30 PM EDT Appointment Nuclear [place] [address]-1000 Mary Reyes APRN [facility] DR [facility] [place] [address] 10/26/2023 4:00 PM EDT Office Visit Cardiology at [address] [address] Jaspreet Kinsey MD [facility] [place] [address] 10/28/2023 9:00 AM EDT [place] [address] 10/29/2023 10:00 AM EDT Clinical [place] [address] 10/29/2023 10:15 AM EDT [place] [address] 11/01/2023 5:00 PM EDT Office Visit Gastroenterology at [place] [phone] Selene Browning, PhD [facility] [place] [address] 11/22/2023 4:40 PM EDT Office Visit Cardiology at [place] [phone] Porsha Mcdaniels MD [facility] [place] [address] 12/13/2023 10:00 AM EDT Clinical Support Gastroenterology at [place] [phone] [facility] [place] [address] documented as of this encounter Procedures Procedure Name Priority Date/Time Associated Diagnosis Comments FILM LIBRARY STORAGE ONLY CT CHEST Routine 04/26/2020 12:00 AM EST documented in this encounter Results * Film Library- Storage Only CT Chest (04/26/2020 12:00 AM EST) Narrative [facility] - 08/02/2020 9:42 AM EDT This exam is auto-finalizing. It's purpose is for storage only. Tim Rogers DNP IMKadi FILM LIBRARY OR DERABLES Performing Organization Address City/State/[facility] Co de Phone Number [place], [place] documented in this encounter Visit Diagnoses Not on filedocumented in this encounter Care Teams Clinical Microbiologist Relationship Specialty Start Date End Date Tim Rogers DNP PCP - General Family Medicine 08/28/19 06/08/21 documented as of this encounter
--- OUTSIDE RECORDS SUMMARY | 2023-10-02 22:49 | XMS_ITS | Encounter Summary ---
[place] [address] Care Team Providers Care Science Professor Name Role Phone Tim Rogers DNP Primary Care Provider [phone] Reason for Visit * Reason Onset Date Comments Other 10/25/2020 Regarding Ziopat ch Encounter Details Date Type Department Care Team (Late st Contact Info) Description 10/25/2020 Tele[place] [phone] Olive Gonzales RN Other (Regarding Ziopatch) Social [...] reach out to Pt. Pt must call [phone] to request Ziopatch. Olive Gonzales RN Department of Pulmonary 5C, [facility] / Pager: [phone] documented in this encounter Plan of Treatment Upcoming Encounters Date Type Department Care Team (Late st Contact Info) Description 10/08/2023 8:30 AM EDT Tech Visit Vascular Lab at [place] [phone] Channing Escobedo [place] 10/08/2023 9:30 AM EDT Office Visit [place] [address] MD [facility] [place] [address] 10/21/2023 10:30 AM EDT Appointment Nuclear Medicine at [place] [phone] [place] [address] 10/21/2023 11:30 AM EDT Appointment Nuclear Medicine at [place] [phone] [place] [address] 10/21/2023 12:30 PM EDT Appointment [place] [address] [place] [address] 10/21/2023 1:30 PM EDT Appointment Nuclear Medicine at [place] [phone] [place] [address] 10/21/2023 2:30 PM EDT Appointment Nuclear Medicine at [place] [phone] Mary Reyes APRN [facility] [place] [address] 10/26/2023 4:00 PM EDT Office Visit Cardiology at [address] [phone] Jaspreet Kinsey MD [facility] [place] [address] 10/28/2023 9:00 AM EDT Office Visit [place] [address] 10/29/2023 10:00 AM EDT Clinical Support [place] [address] 10/29/2023 10:15 AM EDT Procedure visit [place] [address] 11/01/2023 5:00 PM EDT Office Visit Gastroenterology at [place] [phone] Sleene Browning, PhD [facility] [place] [address] 11/22/2023 4:40 PM EDT Office Visit Cardiology at [address] [phone] Porsha Mcdaniels MD [facility] [place] [address] 12/13/2023 10:00 AM EDT Clinical Support [place] [address] Lucero Romero, [place] [facility] [place] [address] documented as of this encounter Visit Diagnoses Not on filedocumented in this encounter Care Teams Science Professor Relationship Specialty Start Date End Date Tim Rogers DNP PCP - General Family Medicine 08/28/19 06/08/21 documented as of this encounter
--- OUTSIDE RECORDS SUMMARY | 2023-10-02 22:49 | XMS_ITS | Encounter Summary ---
Author Organization [facility] [place] [address] Care Team Providers Care Front Desk Officer Name Role Phone Tim Rogers DNP Primary Care Provider [phone] Encounter Details Date Type Department Care Team (Late st Contact Info) Description 10/21/2020 Telephone [place] [address] Beto Miller MD [facility] [place] [address] Social History Tobacco Use Types Packs/Day Years [...] 1: 80, normal SSA, SSB, Alcantar antibody, DIFFERENTIAL TESTER antibody, ANCA, MPO antibody, NM-3 antibody, serum RITCHIE, CBC, BMP and CRP [...] Question: Where will study be performed? Answer: [facility] Order Specific Question: Apply for 7 or 14 days? Answer: 14 Beto Miller MD documented in this encounter Plan of Treatment Upcoming Encounters Date Type Department Care Team (Late st Contact Info) Description 10/08/2023 8:30 AM EDT Tech [place] [address] Channing Escobedo [place] 10/08/2023 9:30 AM EDT Office Visit [place] [address] MD [facility] [place] [place] [address] 10/21/2023 10:30 AM EDT Appointment [place] [address] Mary Reyes APRN [facility] [place] [address] 10/21/2023 11:30 AM EDT Appointment Nuclear Medicine at [place] [phone] Mary Reyes [facility] [address] 10/21/2023 12:30 PM EDT Appointment [place] [address]-1000 Mary Reyes [facility] [address] 10/21/2023 1:30 PM EDT Appointment [place] [address] Mary Reyes [facility] [address] 10/21/2023 2:30 PM EDT Appointment [place] [address] Mary Reyes [facility] [address] 10/26/2023 4:00 PM EDT Office Visit Cardiology at [address] [phone] Jaspreet Kinsey MD [facility] [place] [address] 10/28/2023 9:00 AM EDT Office [place] [address] 10/29/2023 10:00 AM EDT Clinical [place] [address] 10/29/2023 10:15 AM EDT Procedure [place] [address] 11/01/2023 5:00 PM EDT Office Visit Gastroenterology at [place] [phone] Selene Browning, PhD [facility] [place] [address] 11/22/2023 4:40 PM EDT Office Visit Cardiology at [address] [phone] Porsha Mcdaniels MD [facility] [place] [address] 12/13/2023 10:00 AM EDT Clinical Support [place] [address] Lucero Romero, [place] [facility] [place] [address] documented as of this encounter Visit Diagnoses Diagnosis Palpitations documented in this encounter Care Teams Front Desk Officer Relationship Specialty Start Date End Date Tim Rogers DNP PCP - General Family Medicine 08/28/19 06/08/21 documented as of this encounter
--- OUTSIDE RECORDS SUMMARY | 2023-10-02 22:49 | XMS_ITS | Encounter Summary ---
Author Organization [facility] [place] [address] Care Team Providers Care Eligibility Technician Name Role Phone Tim Rogers DNP Primary Care Provider [phone] Reason for Visit * Auth/Cert Specialty Diagnoses / Procedures Referred By Jayant harris Referred To Contact Diagnoses NSTEMI (non-ST elevated myocardial infarction) NSTEMI Procedures EMERGNECY IPI Referral ID Status Reason Start Date Expiration Date Visits Re quested Visits Authorized [id number] 1 1 Encounter Details Date Type Department Care Team (Latest Contact Info) Description 08/29/2019 2:38 PM EDT - 08/31/2019 6:24 PM EDT Hospital Encounter Intermediate [place] [phone] Manish Benitez MD [facility] [place] [address] Non-ST elevation myocardial infarction (NSTEMI); SOB (shortness [...] this encounter Discharge Summaries * Natalia Urbina, TANK SETTER HELPER - 08/30/2019 5:18 PM EDT Images from the original note were not included. Discharge Summary Patient Name: Loida Roque Patient Age: 49 y.o. Language: Swiss Race: White Ethnicity: Not nor Admit date: [...] pain overnight ~3 weeksago concerning for missed HI. ??In the ED, her EKG was abnormal [...] follow-up visit please call one of the safety representative on Wednesday-Wednesday between the hours of 8A- 5PM. Cardiology Clinic number @ [phone] If off hours contact the cardiac fellow on- call. Hospital Vegetable Grader can help you. Hospital phone number [phone] Return to work: In 1 week Drivin hours post catheterization Follow up Appointments: Doctor Where Phone # Date Time Bouchra Frias APRN [address] / [facility] [id number] 09/13/19 8:30 Discharge References/Attachments None Discussed with MD Natalia Lira APRN Pager [phone] 08/31/2019 documented in this encounter Discharge Instructions * Discharge Instructions* Natalia Urbina APRN - 08/31/2019 3:54 PM EDT Call your doctor if: Chest pain, dyspnea, pain or swelling in legs occurs. If you have non-emergent questions, prior to your follow-up visit please call one of the safety representative on Wednesday-Wednesday between the hours of 8A- 5PM. Cardiology Clinic number @ [phone] If off hours contact the cardiac fellow on- call. Hospital Vegetable Grader can help you. Hospital phone number [phone] Return to work: In 1 week Drivin hours post catheterization Follow up Appointments: Doctor Where Phone # Date Time Bouchra Frias APRN [address] / [facility] [id number] 09/13/19 8:30 * Attachments The following attachments cannot be sent through Care Everywhere. * Cardiac Catheterization: Left (Swiss) documented in this encounter Medications at Time of Discharge Medication Sig Dispensed Refills Start Date End Date fluticasone propionate (FLONASE) 50 mcg/actuation [place], Suspension 1 spray by Each Nare route [...] Spirometry Patient Loida Roque 49 y.o. 1970 [id number] Spirometry Spirometry performed successfully. Waiting for read [...] Pt wheeled out of the unit with NEGATIVE CUTTER. * Leonardo Jolly - 08/31/2019 12:25 PM EDT Nutrition Services Note - Low Nutrition Acuity Loida Roque is a 49 y.o. female Reason for intervention: education [facility] + NA Nutrition Plan: Patient states that she follows a low sodium restriction a home. Educational Material Guidelines for a Heart Healthy Lifestyle provided. Continue current diet. Educational Material provided. Monitor weight. Encourage good oral intake. Support and encouragement provided. Nutrition will continue to monitor and follow up with patient as needed. Active Orders Diet Daily Healthy Menu Choices/Cardiac diet ([facility]-Diet) Frequency: Effective Now Number of Occurrences: Until [...] in the interim. Leonardo Marina Jolly Pager: [phone] * Manish Benitez MD - 08/31/2019 9:33 AM EDT Images from the original note were not included. Inpatient Cardiology Progress Note Patient Name: Loida Roque Service: PRODUCT DEVELOPMENT DIRECTOR / PA Responsible Attending: Manish Benitez MD [...] See remainder of report for additional findings. [facility] 08/29 Preliminary findings: Right dominant Normal coronary [...] overnight ~3 weeks ago concerning for missed HI. ??In the ED, her EKG was abnormal with diffuse STTW abnormalities but unchanged from prior EKG in 200 7.?Troponin??I??positive at 0.25 (ULN 0.06). ??Vitals stable and patient asymptomatic at rest. ??DDimer positive at 1037 thus??CT-PE protocol??completed. ??No PE or acute aortic pathology. ??She is transferred for further work up of NSTEMI. ??EF 62% and no wall motions seen on echo. [facility] with normal cors and LVEDP 15. Will [...] Echo with EF 62% and no WMA [facility] with normal cors A1C 5.4% Bedside PFTs today ?? FULL CODE Discussed with Manish Benitez MD Natalia Urbina, ROM Pager [phone] 08/31/2019 Cardiology Attending Note I interviewed and examined the patient during comprehensive bedside rounds. I concur with the summary of interval events, active hospital-focused problem list and plan of care as described in the note below. I personally reviewed the medications, laboratory results, treatment decisions and updated the patient. Manish Benitez MD, FACP, FAC Section of Cardiovascular Medicine [facility] Photo Booth Operatorsoaker soda worker [facility] This patient meets or has met [...] Progress Note Patient Name: Loida Roque Service: PRODUCT DEVELOPMENT DIRECTOR / PA Responsible Attending: Manish Benitez MD [...] overnight ~3 weeks ago concerning for missed HI. 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 fluticasone propionate (FLONASE) 50 mcg/actuation [place], Suspension 1 spray by Each Nare route [...] overnight ~3 weeks ago concerning for missed HI. In the ED, her EKG was abnormal with diffuse STTW abnormalities but unchanged from prior EKG in 2006. Troponin I positive at 0.25 (ULN 0.06). Vitals stable and patient asymptomatic at rest. DDimer positive [id number] thus CT-PE protocol completed. No PE or acute aortic pathology. She is transferred for furtherwork up of NSTEMI. Plan Echo and coronary angiography. TREATMENT PLAN: #NSTEMI Admit to cardiology Trend troponin - 1st negative at [facility] ProBNP 1242; Admit weight 207 lbs; Lasix [...] MD, FACP, FACC Section of Cardiovascular Medicine [facility] Photo Booth Operatorsoaker soda worker [facility] This patient meets or has met [...] Primary care provider on file: Tim Rogers, TANK SETTER HELPER [phone] Advance Directive on file and Code Status: Full Code Patient???s Functional Status: Independent w/o device Living Situation: lives with Boby Roque (Spouse) [phone] (M) at [address] [place] [address] Supports: Boby, Mother son and daughter Assessment: Patient with no apparent RNCM/SW needs at this time. No housing, transportation, insurance, resources concerns identified at this time. Supports in place to achieve a safe post-hospital transition. No identified barriers to accessing necessary care and/or follow-up after discharge. Plan: Patient to d/c to home when medically ready. inorganic chemical technician/Camera Operator will continue to follow patient???s progress and remain available if situation changes for coordination of care, psychosocial support and/or discharge planning. Angela Loving RN * Brief Op Note - Jessee Malone MD - 08/30/2019 2:31 PM EDT Preliminary Cardiac Catheterization Procedure Note: Patient Name: Loida Roque : [id number] MR#: [id number] Case Date: 08/30/2019 Vegetable Grader: Surgeon(s) and Role: * Jessee Malone MD - Primary * Luis Tatum PA - Fellow Preoperative diagnosis: ?CAD Postoperative diagnosis: * CAD * Procedure(s) performed: [facility] Coronary angio Access: Right radial A time-out [...] for further details. JOCY Montaño 08/30/2019 Pager [phone] * Plan of Care - Efrain Verma [...] AM EDT Tech [place] [phone] [address] [place] 10/08/2023 9:30 AM EDT Office Visit [place] [phone] MD [facility] [place] [address] 10/21/2023 10:30 AM EDT Appointment [place] [address] Mary Reyes [facility] [address] 10/21/2023 11:30 AM EDT Appointment [place] [address] Mary Reyes [facility] [place] [address] 10/21/2023 12:30 PM EDT Appointment [place] [address] Mary Reyes [facility] [place] [address] 10/21/2023 1:30 PM EDT Appointment [place] [address] Mary Reyes [facility] [place] [address] 10/21/2023 2:30 PM EDT Appointment [place] [address] Mary Reyes [facility] [address] 10/26/2023 4:00 PM EDT Office Visit Cardiology at [address] [phone] Jaspreet Kinsey MD [facility] [place] [address] 10/28/2023 9:00 AM EDT Office [place] [address] 10/29/2023 10:00 AM EDT Clinical [place] [address] 10/29/2023 10:15 AM EDT Procedure [place] [address] 11/01/2023 5:00 PM EDT Office Visit [place] [address] Selene Browning, PhD [facility] [place] [address] 11/22/2023 4:40 PM EDT Office Visit Cardiology at [address] [phone] Porsha Mcdaniels MD [facility] [place] [address] 12/13/2023 10:00 AM EDT Clinical Support [place] [address] Lucero Romero, [facility] [place] [address] documented as of this encounter Procedures Procedure [...] :12 AM EDT CARDIAC CATHETERIZATION Routine 08/30/19 20 2:40 PM EDT ECHO COMPLETE W CONTRAST [...] [x] 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%) Zeo Morocho MD Nataliarocio Urbina TANK SETTER HELPER PFT ORDERABLES * EKG 12 Lead (08/31/2019 7:05 AM EDT) Ventricular rate 51 BPM MUSE SYSTEM Atrial Rate 51 BPM MUSE SYSTEM P-R Interval 186 ms MUSE SYSTEM QRS Duration 82 ms MUSE SYSTEM Q-T Interval 546 ms MUSE SYSTEM QTC Calculated (Bezet) 503 ms MUSE SYSTEM Calculated P [place] 18 degrees MUSE SYSTEM Calculated R [place] 52 degrees MUSE SYSTEM Calculated T [place] 13 degrees MUSE SYSTEM INTERPRETATION Sinus bradycardia [...] 4:12 AM EDT) Neutrophils % 45.2 % [facility] Neutr Abs (ANC) 2.73 1.70 - 6.10 x10(3)/mc L [facility] Lymphocytes % 34.8 % [facility] Lymphocytes Abs 2.1 0.9 - 3.2 x10(3)/mc L [facility] Monocytes % 10.1 % [facility] Monocyte Abs 0.6 0.3 - 0.9 x10(3)/[facility] Eosinophils % 8.9 % [facility] Eosinophils Abs 0.5(H) 0.0 - 0.4 x10(3)/[facility] Basophils % 0.8 % [facility] Basophils Abs 0.0 0.0 - 0.1 x10(3)/[facility] Immature Gran % 0.20 % [...] Gran Abs 0.01 0.00 - 0.04 x10(3)/[facility] Blood specimen (specimen) 08/31/2019 4:12 AM EDT 08/31/2019 4:29 AM EDT Narrative Resulting Agency Comment Spec In Lab Abeba SANDRA HEMATOLOGY ORDERABLE S [facility] [place] [address] * (ABNORMAL) Hemogram (08/31/2019 4:12 AM EDT) WBC 6.0 4.0 - 9.5 x10(3)/[facility] RBC 5.08 4.00 - 5.21 x10(6)/[facility] Hemoglobin 15.7(H) 11.7 - 15.5 gm/dL [facility] Hematocrit 47.0(H) 35.7 - 45.8 % [facility] MCV 92.5 82.6 - 94.4 fL [facility] MCH 30.9 27.1 - 32.0 pg [facility] MCHC 33.4 31.7 - 35.0 gm/dL [facility] Platelets 255 145 - 357 x10(3)/[facility] RDWSD 45.3 37.0 - 46.0 [facility]ORY RDWCV 13.2 11.5 - 14.1 % [facility] MPV 11.4 7.6 - 12.9 fL [facility] nRBC % Auto 0.0 % [facility] nRBC Abs Auto 0.000 0.000 - 0.000 x10(3)/[facility] Blood specimen (specimen) 08/31/2019 4:12 AM EDT 08/31/2019 4:29 AM EDT Narrative Resulting Agency Comment Spec In Lab Abeba SANDRA HEMATOLOGY ORDERABLE S Performing Organization Address [facility] de Phone Number [facility] [place] [address] * Magnesium (08/31/2019 4:12 AM EDT) Magnesium 0.92 0.69 - 1.07 mmol/L [facility] Blood specimen (specimen) 08/31/2019 4:12 AM EDT 08/31/2019 4:29 AM EDT Narrative Resulting Agency Comment Spec In Lab Manish Benitez MD CHEMISTRY ORDERABL ES Performing Organization Address [facility] de Phone Number [facility] [place] [address] * (ABNORMAL) BMP w/fasting Glucose (08/31/2019 4:12 AM EDT) Glucose Fasting 91 65 - 99 mg/dL [facility] Comment: ?Fasting* Glucose Interpretive [...] of Diabetes Mellitus, Position Statement from the [place] Diabetes Association. ??Diabetes Care, Volume 33, Supplement 1, Mar 2009 BUN 21(H) 8 - 18 mg/dL [facility] Creatinine 0.91 0.70 - 1.20 mg/dL [facility] CO2 18(L) 22 - 31 mmol/L [facility] Anion Gap 13 5 - 15 mmol/L [facility] Calcium 9.4 8.5 - 10.5 mg/dL [facility] Estimated GFR 74 >=60 mL/min/1. 73 m?? [facility] Comment: The eGFR was calculated using the CKD-EPI equation. As with all creatinine based estimates of kidney function, eGFR values calculated with the CKD-EPI equation are not accurate in patients with acute kidney failure, extremes of body mass or the acutely ill. http://[employer]/[facility] eGFR 85 >=60 mL/min/1. 73 m?? [facility] Comment: The eGFR was calculated using the CKD-EPI equation. As with all creatinine based estimates of kidney function, eGFR values calculated with the CKD-EPI equation are not accurate in patients with acute kidney failure, extremes of body mass or the acutely ill. http://[employer]/[facility] Blood specimen (specimen) 08/31/2019 4:12 AM EDT 08/31/2019 4:29 AM EDT Narrative Resulting Agency Comment Spec In Lab Manish Benitez MD CHEMISTRY ORDERABL ES Performing Organization Address [facility]/State/ZIP Co de Phone Number [facility] [place] [address] * CARDIAC CATHETERIZATION (08/30/2019 2:40 PM EDT) Anatomical Region Laterality Modality Other Narrative 08/30/2019 2:59 PM EDT ?[facility] ? Cardiac Catheterization/Intervention Report ? Patient Name: Neisha, Lodia ? Procedure Date: 08/30/2019 ? A #: [id number] ? Primary Physician: Kira, Jessee T ? Case #: [id number] ? File Name: [id number] ? Catheterization Order Number: [id number] ? [facility]Slurry Control Operator [facility] ? Final Report [place], [place] ? Patient Name: ? Loida Neisha ? ID#: ?[id number] ? : ?1970 ? Procedure Date: ? August 30, 2019 ?Case #: ? [id number] ? Room: ? 5 ? Case Physician: ? Jessee Malone M.D. ?Start: ?14:11 ? Admission: ??08/29/2019 ? Referring Physician: ??Pooja Lane Iyer ? Procedures: ?* Coronary Angiography ?* [...] procedure was Urgent. The indication for ?the cathode maker visit is ACS less than or equal [...] Procedure Note Jessee Malone MD - 08/30/2019 [facility] Cardiac Catheterization/Intervention Report Patient Name: Loida Roque Procedure Date: 08/30/2019 A #: [id number] Primary Physician: Jessee Malone Case #: [id number] File Name: [id number] Catheterization Order Number: [id number] [facility] FinalReport [place], [place] Patient Name: Loida Roque ID#:[id number] :1970 Procedure Date: August 30, 2019 Case [...] was designated as ASA Class III. The [facility] clinical frailtyscale is 2: Well. Diagnostic Tests: Prior Coronary Angiography: LV ejection fraction within 6 months is 65%. Medications Prior to Procedure: Aspirin. Indications for Diagnostic Cath: The priority of the diagnostic procedure was Urgent. The indicationfor the cathode maker visit is ACS less than or equal [...] ?NEISHA LOIDA ?(Age): 1970(49y) Med Rec#: ? [id number] ?Sex: ?F ? Site Loc: ? [facility] ?Ht / Wt: ??163(cm)/94(kg) Pt. Loc: ?Adult Floor ? BSA: ?1.99 Study Date: ?? 08/30/2019 ?Pt. Type: Inpatient Tape: ? Referring: POOJA IYER J Reading: Jose Chambers ([id number]) Marriage Counselor Minister: Jaspreet Oneil [facility] Interpreting Fellow: Poncho Yates ([id number]) Diagnosis: *Non-ST elevation (NSTEMI) myocardial infarction (I21.4) [...] Vmax ?0.35 ? m/sec ? MV deceleration [id number] ?msec ? MV A-wave Vmax ?0.25 ? [...] ? Mid-Inferior ?Normal ? Mid-Inferoseptal ?Normal ? [place]-Septal ? Normal ? [place]-Anterior ? Normal ? [place]-Lateral ?Normal ? [place]-Inferior ? Normal ? [place]-Tip ?Normal ? This report has been electronically signed by: Jose Chambers MD ? 08/30/2019 14:21:57 Images reviewed and interpretation verified [facility] Card[facility] Ultrasound [facility] Procedure Note Jose Chambers MD - 08/30/2019 Procedure: Transthoracic Echocardiogram Patient: NEISHA VÁSQUEZ(Age): 1970(49y) Med Rec#: [id number] Sex: F Site Loc: [facility] Ht / Wt: 163(cm)/94(kg) Pt. Loc: Adult Floor BSA: 1.99 Study Date: 08/30/2019 Pt. Type: Inpatient Tape: Referring: POJOA IYER J Reading: Jose Chambers ([id number]) Marriage Counselor Minister: Jaspreet Oneil RDCS Interpreting Fellow: Poncho Yates ([id number]) Diagnosis: *Non-ST elevation (NSTEMI) myocardial infarction (I21.4) [...] MV E-wave Vmax 0.35 m/sec MV deceleration [id number] msec MV A-wave Vmax 0.25 m/sec MV [...] Normal Mid-Posterolateral Normal Mid-Inferior Normal Mid-Inferoseptal Normal [place]-Septal Normal [place]-Anterior Normal [place]-Lateral Normal [place]-Inferior Normal [place]-Tip Normal This report has been electronically signed by: Jose Chambers MD 08/30/2019 14:21:57 Images reviewed and interpretation verified [facility]trasound Laboratory Manish Benitez MD ECHO ORDERABLES * EKG 12 Lead (08/30/2019 10:28 AM EDT) Ventricular rate 52 BPM MUSE SYSTEM Atrial Rate 52 BPM MUSE SYSTEM P-R Interval 162 ms MUSE SYSTEM QRS Duration 84 ms MUSE SYSTEM Q-T Interval 536 ms MUSE SYSTEM QTC Calculated (Bezet) 498 ms MUSE SYSTEM Calculated P [place] -9 degrees MUSE SYSTEM Calculated R [place] 43 degrees MUSE SYSTEM Calculated T [place] -27 degrees MUSE SYSTEM INTERPRETATION Sinus bradycardia [...] Heparin (unfractionated) Level (08/30/2019 2:53 AM EDT) Pathologist [facility] Heparin UFH Level 0.44 IU/mL [facility] Comment: Guidelines for therapeutic [...] Lab Manish Benitez MD HEMATOLOGY ORDERAB LES [facility] [place] [address] * (ABNORMAL) Differential, Automated (08/30/2019 2:53 AM EDT) Neutrophils % 52.4 % [facility] Neutr Abs (ANC) 3.85 1.70 - 6.10 x10(3)/[facility] LAB[facility] Lymphocytes % 29.3 % [facility] Lymphocytes Abs 2.2 0.9 - 3.2 x10(3)/[facility] Monocytes % 9.1 % [facility] Monocyte Abs 0.7 0.3 - 0.9 x10(3)/[facility] Eosinophils % 8.6 % [facility] Eosinophils Abs 0.6(H) 0.0 - 0.4 x10(3)/[facility] LAB[facility] Basophils % 0.5 % [facility] Basophils Abs 0.0 0.0 - 0.1 x10(3)/[facility] LABOR[facility] Immature Gran % 0.10 % WHITE [...] Abs 0.01 0.00 - 0.04 x10(3)/ L [facility] Blood specimen (specimen) 08/30/2019 2:53 AM EDT 08/30/2019 3:01 AM EDT Narrative Resulting Agency Comment Spec In Lab Abeba Zoraida SANDRA HEMATOLOGY ORDERABLE S [facility] [place] [address] * (ABNORMAL) Hemogram (08/30/2019 2:53 AM EDT) WBC 7.4 4.0 - 9.5 x10(3)/[facility] LAB[facility] RBC 4.84 4.00 - 5.21 x10(6)/[facility] Hemoglobin 14.8 11.7 - 15.5 gm/dL [facility] Hematocrit 44.8 35.7 - 45.8 % [facility] MCV 92.6 82.6 - 94.4 [facility] MCH 30.6 27.1 - 32.0 pg [facility] MCHC 33.0 31.7 - 35.0 gm/dL [facility] Platelets 272 145 - 357 x10(3)/[facility] RDWSD 46.2(H) 37.0 - 46.0 [facility] RDWCV 13.5 11.5 - 14.1 % [facility] MPV 10.9 7.6 - 12.9 [facility] nRBC % Auto 0.0 % [facility] nRBC Abs Auto 0.000 0.000 - 0.000 x10(3)/[facility] Blood specimen (specimen) 08/30/2019 2:53 AM EDT 08/30/2019 3:01 AM EDT Narrative Resulting Agency Comment Spec In Lab Abeba Zoraida SANDRA HEMATOLOGY ORDERABLE S [facility] [place] [address] * Magnesium (08/30/2019 2:53 AM EDT) Magnesium 0.90 0.69 - 1.07 mmol/L [facility] Blood specimen (specimen) 08/30/2019 2:53 AM EDT 08/30/2019 3:01 AM EDT Narrative Resulting Agency Comment Spec In Lab Manish Benitez MD CHEMISTRY ORDERABL ES [facility] [place] [address] * (ABNORMAL) BMP w/fasting Glucose (08/30/2019 2:53 AM EDT) Glucose Fasting 102(H) 65 - 99 mg/dL [facility] Comment: ?Fasting* Glucose Interpretive [...] of Diabetes Mellitus, Position Statement from the [place] Diabetes [employer]. ??Diabetes Care, Volume 33, Supplement 1, Mar 2009 BUN 18 8 - 18 mg/dL [facility] Creatinine 1.09 0.70 - 1.20 mg/dL [facility] Comment: The eGFR was calculated using the CKD-EPI equation. As with all creatinine based estimates of kidney function, eGFR values calculated with the CKD-EPI equation are not accurate in patients with acute kidney failure, extremes of body mass or the acutely ill. http://[employer]/[facility] eGFR 69 >=60 mL/min/1. 73 m?? [facility] Comment: The eGFR was calculated using the CKD-EPI equation. As with all creatinine based estimates of kidney function, eGFR values calculated with the CKD-EPI equation are not accurate in patients with acute kidney failure, extremes of body mass or the acutely ill. [email or web address]/[email or web address] [email or web address] Blood specimen (specimen) 08/30/2019 2:53 AM EDT 08/30/2019 3:01 AM EDT Narrative Resulting Agency Comment Spec In Lab Manish Benitez MD CHEMISTRY ORDERABL ES Performing Organization Address [facility] Co de Phone Number [facility] [place] [address] * Triglyceride (08/30/2019 2:53 AM EDT) Triglycerides 203 mg/dL [facility] Comment: Average Risk/Lower Risk: <150 mg/dL Borderline High Risk: 150-199 mg/dL High Risk: 200-499 mg/dL Very High Risk: >az=223 mg/dL Blood specimen (specimen) 08/30/2019 2:53 AM EDT 08/30/2019 3:01 AM EDT Narrative Resulting Agency Comment Spec In Lab Manish Benitez MD CHEMISTRY ORDERABL ES Performing Organization Address City/[facility]/ZIP Co de Phone Number [facility] [place] [address] * HDL/Cholesterol Profile (08/30/2019 2:53 AM EDT) Chol, Total 220 mg/dL [facility] Comment: Lower Risk: <200 mg/dL Average Risk: 200-239 mg/dL Higher Risk: >ee=588 mg/dL HDL 34 mg/dL [facility] Comment: Males: ?? Higher Risk: <40 mg/dL Females: ?? HIgher Risk: <50 mg/dL Chol/HDL Ratio 6.5 ratio [facility] Chol/HDL Interpretation See Note [facility] Comment: Lipid management should be guided by a patient? s ASCVD risk, goals and preferences. ACC/AHA Guidelines recommend high intensity statin if clinical ASCVD or LDL greater than or equal to 190 mg/dL. http://[employer].com/WMU-FSQ-Byelpjbmj Measure LDL if Total Cholesterol minus HDL Cholesterol is greater than 220 mg/dL. Adults aged 40-75 with LDL 70-189 mg/dL should have their 10 year ASCVD risk estimated with the ACC/AHA ASCVD risk broadcast operations engineer http://tools.acc.org/HJWTC-Ogcc-Wirynkqnw/ Statin should be discussed if risk greater [...] Lab Manish Benitez MD CHEMISTRY ORDERABL ES [facility] [place] [address] * LDL Cholesterol, Direct (08/30/2019 2:53 AM EDT) LDL Chol Direct 165 mg/dL [facility] Comment: Lowest Risk: <100 mg/dL Lower Risk: 100-129 mg/dL Borderline High Risk: 130-159 mg/dL High Risk: 160-189 mg/dL Very High Risk: >mc=545 mg/dL Blood specimen (specimen) 08/30/2019 2:53 AM EDT 08/30/2019 3:01 AM EDT Narrative Resulting Agency Comment Spec In Lab Manish Benitez MD CHEMISTRY ORDERABL ES [facility] [place] [address] * Hemoglobin A1c (08/30/2019 2:53 AM EDT) Hemoglobin A1C 5.4 4.3 - 5.6 % [facility] Comment: Reference Range: 4.3 [...] into estimated average glucose values. ??Diabetes Care 2008:31(8):5180-2861. Blood specimen (specimen) 08/30/2019 2:53 AM EDT 08/30/2019 3:01 AM EDT Narrative Resulting Agency Comment Spec In Lab Manish Benitez MD CHEMISTRY ORDERABL ES Performing Organization Address [facility] de Phone Number [facility] [place] [address] * CK (08/30/2019 2:53 AM EDT) CK, Total 82 0 - 160 unit/L [facility] Blood specimen (specimen) 08/30/2019 2:53 AM EDT 08/30/2019 3:01 AM EDT Narrative Resulting Agency Comment Spec In Lab Manish Benietz MD CHEMISTRY ORDERABL ES Performing Organization Address [facility] Phone Number [facility] [place] [address] * Troponin (08/30/2019 2:53 AM EDT) Troponin-T <0.01 0.00 - 0.00 ng/mL [facility] Comment: The 99th percentile for Troponin T is less than 0.01 ng/mL, any detectable cTnT concentration using this assay should be considered elevated. According to the third universal definition of myocardial infarction the following criteria with a clinical presentation consistent with acute myocardial ischemia meets the diagnosis for a myocardial infarction (HI). Detection of a rise and/or fall of cTnT, with at least one value greater than the 99th percentile (> or = 0.01) and with at least one of the following ?? Symptoms of ischemia ?? New or presumed new significant NI-jyymxia-M wave (ST-T) changes or new left bundle [...] additional sample may be indicated. Reference: Third [place] Definition of Myocardial Infarction. Journal of the [place] College [employer] 2012;60:1581-98 Blood specimen (specimen) 08/30/2019 2:53 AM EDT 08/30/2019 3:01 AM EDT Narrative Resulting Agency Comment Spec In Lab Manish Benitez MD CHEMISTRY ORDERABL ES [facility] [place] [address] * (ABNORMAL) Differential, Automated (08/29/2019 8:30 PM EDT) Neutrophils % 56.5 % [facility] Neutr Abs (ANC) 3.58 1.70 - 6.10 x10(3)/mc L [facility] Lymphocytes % 25.9 % [facility] Lymphocytes Abs 1.6 0.9 - 3.2 x10(3)/mc L [facility] Monocytes % 8.8 % [facility] Monocyte Abs 0.6 0.3 - 0.9 x10(3)/mc L [facility] Eosinophils % 7.7 % [facility] Eosinophils Abs 0.5(H) 0.0 - 0.4 x10(3)/mc L [facility] Basophils % 0.8 % [facility] Basophils Abs 0.0 0.0 - 0.1 x10(3)/mc L [facility] Immature Gran % 0.30 % WHITE [...] Abs 0.02 0.00 - 0.04 x10(3)/mc L [facility] Blood specimen (specimen) 08/29/2019 8:30 PM EDT 08/29/2019 9:11 PM EDT Narrative Resulting Agency Comment Spec In Lab Abeba SANDRA HEMATOLOGY ORDERABLE S [facility] [place] [address] * (ABNORMAL) Hemogram (08/29/2019 8:30 PM EDT) WBC 6.3 4.0 - 9.5 x10(3)/[facility] RBC 5.03 4.00 - 5.21 x10(6)/[facility] Hemoglobin 15.3 11.7 - 15.5 gm/dL [facility] Hematocrit 46.4(H) 35.7 - 45.8 % [facility] MCV 92.2 82.6 - 94.4 [facility] MCH 30.4 27.1 - 32.0 pg [facility] MCHC 33.0 31.7 - 35.0 gm/dL [facility] Platelets 267 145 - 357 x10(3)/[facility] RDWSD 46.4(H) 37.0 - 46.0 [facility] RDWCV 13.6 11.5 - 14.1 % [facility] MPV 11.3 7.6 - 12.9 [facility] nRBC % Auto 0.0 % [facility] nRBC Abs Auto 0.000 0.000 - 0.000 x10(3)/[facility] Blood specimen (specimen) 08/29/2019 8:30 PM EDT 08/29/2019 9:11 PM EDT Narrative Resulting Agency Comment Spec In Lab Abeba SANDRA HEMATOLOGY ORDERABLE S Performing Organization Address [facility] de Phone Number [facility] [place] [address] * Heparin (unfractionated) Level (08/29/2019 8:30 PM EDT) Heparin UFH Level 0.46 IU/mL [facility] Comment: Guidelines for therapeutic [...] MD HEMATOLOGY ORDERAB LES Performing Organization Address [facility]/ZIP Co de Phone Number [facility] [place] [address] * CK (08/29/2019 8:30 PM EDT) CK, Total 94 0 - 160 unit/L [facility] Blood specimen (specimen) 08/29/2019 8:30 PM EDT 08/29/2019 9:11 PM EDT Narrative Resulting Agency Comment Spec In Lab Manish Benitez MD CHEMISTRY ORDERABL ES Performing Organization Address [facility] Co de Phone Number [facility] [place] [address] * Troponin (08/29/2019 8:30 PM EDT) Pathologist [facility] Troponin-T <0.01 0.00 - 0.00 ng/mL [facility] Comment: The 99th percentile for Troponin T is less than 0.01 ng/mL, any detectable cTnT concentration using this assay should be considered elevated. According to the third universal definition of myocardial infarction the following criteria with a clinical presentation consistent with acute myocardial ischemia meets the diagnosis for a myocardial infarction (HI). Detection of a rise and/or fall of cTnT, with at least one value greater than the 99th percentile (> or = 0.01) and with at least one of the following ?? Symptoms of ischemia ?? New or presumed new significant EF-tbbianm-O wave (ST-T) changes or new left bundle [...] additional sample may be indicated. Reference: Third [place] Definition of Myocardial Infarction. Journal of the [place] College [employer] Cardiology 2012;60:1581-98 Blood specimen (specimen) 08/29/2019 8:30 PM EDT 08/29/2019 9:11 PM EDT Narrative Resulting Agency Comment Spec In Lab Manish Benitez MD CHEMISTRY ORDERABL ES Performing Organization Address [facility] Co de Phone Number [facility] [place] [address] * EKG 12 Lead (08/29/2019 4:19 PM EDT) Ventricular rate 67 BPM MUSE SYSTEM Atrial Rate 67 BPM MUSE SYSTEM P-R Interval 164 ms MUSE SYSTEM QRS Duration 80 ms MUSE SYSTEM Q-T Interval 478 ms MUSE SYSTEM QTC Calculated (Bezet) 505 ms MUSE SYSTEM Calculated P [place] 34 degrees MUSE SYSTEM Calculated R [place] 30 degrees MUSE SYSTEM Calculated T [place] -29 degrees MUSE SYSTEM INTERPRETATION Demand pacemaker; interpretation is based on intrinsic rhythm Sinus rhythm Occasional Premature ventricular complexes Possible Left atrial enlargement ST & T wave abnormality, consider inferolateral ischemia Prolonged QT Abnormal ECG No previous ECGs available Confirmed by MD NAILA, KAUSHIK ([id number]) on 08/30/2019 4:45:14 PM MUSE SYSTEM 08/29/2019 4:19 PM EDT 08/30/2019 4:45 PM EDT Manish Benitez MD ECG ORDERABLES MUSE SYSTEM * (ABNORMAL) Differential, Automated (08/29/2019 3:10 PM EDT) Pathologist [facility] Neutrophils % 58.3 % [facility] Neutr Abs (ANC) 3.79 1.70 - 6.10 x10(3)/ L [facility] Lymphocytes % 22.7 % [facility] Lymphocytes Abs 1.5 0.9 - 3.2 x10(3)/[facility] LAB[facility] Monocytes % 10.3 % [facility] Monocyte Abs 0.7 0.3 - 0.9 x10(3)/[facility] Eosinophils % 7.8 % [facility] Eosinophils Abs 0.5(H) 0.0 - 0.4 x10(3)/[facility] Basophils % 0.6 % [facility] Basophils Abs 0.0 0.0 - 0.1 x10(3)/[facility] Immature Gran % 0.30 % [...] Abs 0.02 0.00 - 0.04 x10(3)/ L [facility] Blood specimen (specimen) 08/29/2019 3:10 PM EDT 08/29/2019 3:50 PM EDT Narrative Resulting Agency Comment Spec In Lab Abeba SANDRA HEMATOLOGY ORDERABLE S [facility] [place] [address] * (ABNORMAL) Hemogram (08/29/2019 3:10 PM EDT) WBC 6.5 4.0 - 9.5 x10(3)/[facility] RBC 4.69 4.00 - 5.21 x10(6)/[facility] Hemoglobin 14.1 11.7 - 15.5 gm/dL [facility] Hematocrit 43.8 35.7 - 45.8 % [facility] MCV 93.4 82.6 - 94.4 fL [facility] MCH 30.1 27.1 - 32.0 pg [facility] MCHC 32.2 31.7 - 35.0 gm/dL [facility] Platelets 235 145 - 357 x10(3)/[facility] RDWSD 47.2(H) 37.0 - 46.0 [facility] RDWCV 13.7 11.5 - 14.1 % [facility] MPV 11.5 7.6 - 12.9 [facility] nRBC % Auto 0.0 % [facility] nRBC Abs Auto 0.000 0.000 - 0.000 x10(3)/[facility] Blood specimen (specimen) 08/29/2019 3:10 PM EDT 08/29/2019 3:50 PM EDT Narrative Resulting Agency Comment Spec In Lab Abe[place] SANDRA HEMATOLOGY ORDERABLE S Performing Organization Address [facility] Co de Phone Number [facility] [place] [address] * Hepatic Function Panel (08/29/2019 3:10 PM EDT) Total Protein 7.1 6.1 - 8.0 gm/dL [facility] Albumin 4.0 3.2 - 5.2 gm/dL [facility] AST 25 0 - 30 unit/L [facility] ALT 19 0 - 30 unit/L [facility] Alk Phos 49 35 - 105 unit/L [facility] Total Bilirubin 0.7 0.2 - 1.3 mg/dL [facility] Bili, Direct 0.1 0.0 - 0.3 mg/dL [facility] Blood specimen (specimen) 08/29/2019 3:10 PM EDT 08/29/2019 3:52 PM EDT Narrative Resulting Agency Comment Spec In Lab Manish Benitez MD CHEMISTRY ORDERABL ES Performing Organization Address [facility] de Phone Number [facility] [place] [address] * TSH (08/29/2019 3:10 PM EDT) Pathologist [facility] TSH 1.87 0.27 - 4.20 mcIU/mL [facility] Blood specimen (specimen) 08/29/2019 3:10 PM EDT 08/29/2019 3:52 PM EDT Narrative Resulting Agency Comment Spec In Lab Manish Benitez MD CHEMISTRY ORDERABL ES Performing Organization Address [facility] Co de Phone Number [facility] [place] [address] * (ABNORMAL) pro-Brain Natriuretic Peptide (08/29/2019 3:10 PM EDT) [facility] ProBNP 1,242(H) <=125 pg/mL [facility] Blood specimen (specimen) 08/29/2019 3:10 PM EDT 08/29/2019 3:52 PM EDT Narrative Resulting Agency Comment Spec In Lab Manish Benitez MD CHEMISTRY ORDERABL ES Performing Organization Address [facility] Co de Phone Number [facility] [place] [address] * CK (08/29/2019 3:10 PM EDT) [facility] CK, Total 96 0 - 160 unit/L [facility] Blood specimen (specimen) 08/29/2019 3:10 PM EDT 08/29/2019 3:52 PM EDT Narrative Resulting Agency Comment Spec In Lab Manish Benitez MD CHEMISTRY ORDERABL ES Performing Organization Address [facility] Co de Phone Number [facility] [place] [address] * Troponin (08/29/2019 3:10 PM EDT) [facility] Troponin-T <0.01 0.00 - 0.00 ng/mL [facility] Comment: The 99th percentile for Troponin T is less than 0.01 ng/mL, any detectable cTnT concentration using this assay should be considered elevated. According to the third universal definition of myocardial infarction the following criteria with a clinical presentation consistent with acute myocardial ischemia meets the diagnosis for a myocardial infarction (HI). Detection of a rise and/or fall of cTnT, with at least one value greater than the 99th percentile (> or = 0.01) and with at least one of the following ?? Symptoms of ischemia ?? New or presumed new significant LB-cxzuelw-Z wave (ST-T) changes or new left bundle [...] additional sample may be indicated. Reference: Third [place] Definition of Myocardial Infarction. Journal of the [place] College [employer] 2012;60:1581-98 Blood specimen (specimen) 08/29/2019 3:10 PM EDT 08/29/2019 3:52 PM EDT Narrative Resulting Agency Comment Spec In Lab Manish Benitez MD CHEMISTRY ORDERABL ES Performing Organization Address [facility] Co de Phone Number [facility] [place] [address] * (ABNORMAL) APTT (08/29/2019 3:10 PM EDT) PTT 132(Criti edy) 25 - 37 sec [facility] [...] MD HEMATOLOGY ORDERAB LES Performing Organization Address [facility] Co de Phone Number [facility] [place] [address] * (ABNORMAL) Prothrombin Time (08/29/2019 3:10 PM EDT) PT 13.3(H) 9.4 - 12.5 sec [facility] INR 1.2 [facility] Comment: An INR <2.0 indicates [...] Lab Manish Benitez MD HEMATOLOGY ORDERAB LES [facility] [place] [address] * (ABNORMAL) Basic Metabolic Panel (non-fasting) (08/29/2019 3:10 PM EDT) Glucose Lvl 83 65 - 199 mg/dL [facility] Comment:Diabetes: >=200 mg/d L plus symptoms BUN 15 8 - 18 mg/dL [facility] Creatinine 0.84 0.70 - 1.20 mg/dL [facility] Estimated GFR 81 >=60 mL/min/1. 73 m?? [facility] Comment: The eGFR was calculated using the CKD-EPI equation. As with all creatinine based estimates of kidney function, eGFR values calculated with the CKD-EPI equation are not accurate in patients with acute kidney failure, extremes of body mass or the acutely ill. [email or web address]://[employer]/[email or web address] eGFR 94 >=60 mL/min/1. 73 m?? [facility] Comment: The eGFR was calculated using the CKD-EPI equation. As with all creatinine based estimates of kidney function, eGFR values calculated with the CKD-EPI equation are not accurate in patients with acute kidney failure, extremes of body mass or the acutely ill. [email or web address] Blood specimen (specimen) 08/29/2019 3:10 PM EDT 08/29/2019 3:52 PM EDT Narrative Resulting Agency Comment Spec In Lab Manish Benitez MD CHEMISTRY ORDERABL ES [facility] [place] [address] documented in this encounter Visit Diagnoses Diagnosis [...] 1439, Until Wed08/29/19 at 1445, Mark Nick: cabinesteven override heparin (Porcine) subcutaneous injection 5,000 Units [...] 0842 (Given - Provider: Mark Nick RN)1357 ([facility] Hold - Provider: Admin Adt - Reason: Transfer to a Procedural area)1530 ([facility] Unhold - Provider: Admin Adt) atorvastatin (Lipitor) tablet 80 mg (CANCELED) 80 mg, Oral, EVERY EVENING, First dose on Wed08/29/19 at 1715, Until Discontinued, Routine 1701 (Given - Provider: Mark Nick RN) 1357 ([facility] Hold - Provider: Admin Adt - Reason: Transfer to a Procedural area)1530 ([facility] Unhold - Provider: Admin Adt) clopidogreL (Plavix) tablet 75 mg (CANCELED) 75 mg, Oral, DAILY, First dose on Wed08/30/19 at 0900, Until Discontinued, Routine 0842 (Given - Provider: Mark Nick RN)1357 ([facility] Hold - Provider: Admin Adt - Reason: Transfer to a Procedural area)1530 ([facility] Unhold - Provider: Admin Adt) DULoxetine DR (Cymbalta) capsule 60 mg 60 mg, Oral, NIGHTLY, First dose on Wed08/29/19 at 2100, Until Discontinued, Routine 2048 (Given - Provider: Efrain Verma RN) 1357 ([facility] Hold - Provider: Admin Adt - Reason: Transfer to a Procedural area)1530 ([facility] Unhold - Provider: Admin Adt)2030 (Given - [...] Verma RN) 0842 (Given - Provider: Mark Nick, ERWIN)1357 ([facility] Hold - Provider: Admin Adt - [...] Procedural area)153 ([facility] Unhold - Provider: Admin Adt)2030 (Given - Provider: Gauri Arroyo RN) topiramate [...] - Reason: Transfer to a Procedural area)1530 ([facility] Unhold - Provider: Admin Adt) fentaNYL 50 mcg/mL multi-dose injection (CANCELED) ONCE PRN, Starting on Wed08/30/19 at 1405, Until Wed08/30/19 at 1530, Intra-Operative (Intra-Procedure), Routine 1405 (Given - Provider: Bro King, ERWIN) iohexoL (OMNIPAQUE) 350 mg/mL solution (CANCELED) ONCE PRN, Starting on Wed08/30/19 at 1428, Until Wed08/30/19 at 1530, Cath (Intra-Procedure), Routine 1428 (Given - Provider: Jessee Malone MD) midazolam (PF) (VERSED) multi-dose injection (CANCELED) ONCE PRN, Starting on Wed08/30/19 at 1404, Until Wed08/30/19 at 1530, Cath (Intra-Procedure), Routine 1404 (Given - Provider: Bro King, ERWIN) nitroGLYcerin (Nitrostat) disintegrating tablet 0.4 mg [...] - Reason: Transfer to a Procedural area)1530 ([facility] Unhold - Provider: Admin Adt) perflutren protein-A [...] UA) documented in this encounter Care Teams Eligibility Technician Relationship Specialty Start Date End Date Tim Rogers DNP PCP - General Family Medicine 08/28/19 06/08/21 documented as of this encounter
--- OUTSIDE RECORDS SUMMARY | 2023-10-02 22:50 | XMS_ITS | Encounter Summary ---
Author Organization [facility] [place] [address] Care Team Providers Care Nursing Secretary Name Role Phone Dustin Nino MD Primary Care Provider [phone] Encounter Details Date Type Department Care Team (Late st Contact Info) Description 06/19/2010 [place] [phone] Lashonda York MD [facility] DR [place]ERGY [place] [address] Social History Tobacco Use Types Packs/Day Years [...] AM EDT Tech [place] [phone] Channing Escobedo [place] 10/08/2023 9:30 AM EDT Office [place] [phone] MD [facility] [place] [address] 10/21/2023 10:30 AM EDT Appointment Nuclear Medicine at [place] [phone] Mary Reyes [facility] [place] [address] 10/21/2023 11:30 AM EDT Appointment Nuclear Medicine at [place] [phone] Mary Reyes [facility] [place] [address] 10/21/2023 12:30 PM EDT Appointment [place] [address]-1000 Mary Reyes [facility] [place] [address] 10/21/2023 1:30 PM EDT Appointment Nuclear Medicine at [place] [phone] Mary Reyes [facility] [place] [address] 10/21/2023 2:30 PM EDT Appointment [place] [address] Mary Reyes [facility] [place] [address] 10/26/2023 4:00 PM EDT Office Visit Cardiology at [address] [address] Jaspreet Kinsey MD [facility] [place] [address] 10/28/2023 9:00 AM EDT Office [place] [address] 10/29/2023 10:00 AM EDT Clinical Support [place] [address] 10/29/2023 10:15 AM EDT Procedure [place] [address] 11/01/2023 5:00 PM EDT Office Visit Gastroenterology at [place] [phone] Selene Browning, PhD [facility] [place] [address] 11/22/2023 4:40 PM EDT Office Visit Cardiology at [place] [phone] Porsha Mcdaniels MD [facility] [place] [address] 12/13/2023 10:00 AM EDT Clinical Support [place] [address] Lucero Romero, ALVA [facility] [place] [address] documented as of this encounter Visit Diagnoses Not on filedocumented in this encounter Care Teams Nursing Secretary Relationship Specialty Start Date End Date Dustin Nino MD [facility] [address] [place] [address] PCP - General 06/11/10 08/27/19 documented as of this encounter
--- OUTSIDE RECORDS SUMMARY | 2023-10-02 22:50 | XMS_ITS | Encounter Summary ---
Author Organization [facility] [place] [address] Care Team Providers Care Campus Director Name Role Phone Tim Rogers DNP Primary Care Provider Encounter Details Date Type Department Care Team (Late st Contact Info) Description 08/28/2019 12:05 AM EDT Ancillary Procedure [place] [phone] Veronica Bello, DRIER TAKE OFF TENDER [address] [place], [place] [address] Social History Tobacco Use Types Packs/Day Years [...] AM EDT Tech [place] [phone] Channing Escob[place] 10/08/2023 9:30 AM EDT Office Visit [place] [phone] [facility] DR VASCULAR SURGERY [place], [place] [phone] 10/21/2023 10:30 AM EDT Appointment Nuclear Medicine at [place] [phone] [place] [address] 10/21/2023 11:30 AM EDT Appointment Nuclear Medicine at [place] [phone] Mary Reyes [facility] [place] [address] 10/21/2023 12:30 PM EDT Appointment [place] [address] Mary Reyes [facility] [place] [address] 10/21/2023 1:30 PM EDT Appointment [place] [address] Mary Reyes [facility] [place] [address] 10/21/2023 2:30 PM EDT Appointment [place] [address] Mary Reyes [facility] [place] [address] 10/26/2023 4:00 PM EDT Office Visit Cardiology at [address] [phone] Jaspreet Kinsey MD [facility] [place] [address] 10/28/2023 9:00 AM EDT Office Visit [place] [address] 10/29/2023 10:00 AM EDT Clinical Support [place] [address] 10/29/2023 10:15 AM EDT Procedure visit [place] [address] 11/01/2023 5:00 PM EDT Office Visit [place] [phone] Selene Browning, PhD [facility] [place] [address] 11/22/2023 4:40 PM EDT Office Visit Cardiology at [address] [phone] [facility] [place] [address] 12/13/2023 10:00 AM EDT Clinical Support [place] [phone] [facility] [place] [address] documented as of this encounter Procedures Procedure Name Priority Date/Time Associated Diagnosis Comments FILM LIBRARY STORAGE ONLY CT CHEST Routine 08/28/2019 12:05 AM EDT documented in this encounter Results * Film Library- Storage Only CT Chest (08/28/2019 12:05 AM EDT) Narrative [facility] - 08/29/2019 1:46 PM EDT This exam is auto-finalizing. It's purpose is for storage only. Veronica K Garrettdara DRIER TAKE OFF TENDER IMG FILM LIBRARY ORD ERABLES [place], [place] documented in this encounter Visit Diagnoses Not on filedocumented in this encounter Care Teams Campus Director Relationship Specialty Start Date End Date Tim Rogers DNP PCP - General Family Medicine 08/28/19 06/08/21 documented as of this encounter
--- OUTSIDE RECORDS SUMMARY | 2023-10-02 22:50 | XMS_ITS | Encounter Summary ---
Author Organization [facility] [place] [address] Care Team Providers Care Airplane First Officer Name Role Phone Dustin Nino MD Primary Care Provider [phone] Encounter Details Date Type Department Care Team (Late st Contact Info) Description 06/20/2010 [place] [phone] Lashonda York MD [facility] DR [place]GY [place] [address] Social History Tobacco Use Types Packs/Day Years [...] Tech [place] [phone] [place] 10/08/2023 9:30 AM EDT Office [place] [phone] MD [facility] [place] [address] 10/21/2023 10:30 AM EDT Appointment Nuclear Medicine at [place] [phone] Mary Reyes [facility] [place] [address] 10/21/2023 11:30 AM EDT Appointment Nuclear Medicine at [place] [phone] Mary Reyes [facility] [place] [address] 10/21/2023 12:30 PM EDT Appointment [place] [address]-1000 Mary Reyes [facility] [place] [address] 10/21/2023 1:30 PM EDT Appointment Nuclear Medicine at [place] [phone] Mary Reyes [facility] [place] [address] 10/21/2023 2:30 PM EDT Appointment [place] [address] Mary Reyes [facility] [place] [address] 10/26/2023 4:00 PM EDT Office Visit Cardiology at [address] [address] Jaspreet Kinsey MD [facility] [place] [address] 10/28/2023 9:00 AM EDT Office [place] [address] 10/29/2023 10:00 AM EDT Clinical [place] [address] 10/29/2023 10:15 AM EDT Procedure [place] [address] 11/01/2023 5:00 PM EDT Office Visit Gastroenterology at [place] [phone] Selene Browning, PhD [facility] [place] [address] 11/22/2023 4:40 PM EDT Office Visit Cardiology at [place] [phone] Porsha Mcdaniels MD [facility] [place] [address] 12/13/2023 10:00 AM EDT Clinical [place] [address] Lucero Romero, AL[place] [facility] [place] [address] documented as of this encounter Visit Diagnoses Not on filedocumented in this encounter Care Teams Airplane First Officer Relationship Specialty Start Date End Date Dustin Nino MD [facility] [address] [place] [address] PCP - General 06/11/10 08/27/19 documented as of this encounter
--- OUTSIDE RECORDS SUMMARY | 2023-10-02 22:50 | XMS_ITS | Encounter Summary ---
Author Organization [facility] Address [facility] [place] [address] Care Team Providers Care Water Taxi Captain Name Role Phone Faheem Romero MD Primary Care Provider [phone] Reason for Visit * Reason Comments Allergic Rhinitis Encounter Details Date Type Department Care Team (Late st Contact Info) Description 06/26/2010 9:15 AM EDT [place] [address] Lashonda York MD [facility] DR ALLERGY [place] [address] Asthma (Primary Dx); Rhinitis; Rhinitis, nonallergic, chronic [...] pollen: Axel Tree pollen: Birch, Shay, Maple, [place], Beech, [place] pollen: Anderson's Qu[place], Short Ragweed, Pigweed, Molds: [...] AM EDT Tech Visit Vascular Lab at [place] [phone] Channing Escobedo [place] 10/08/2023 9:30 AM EDT Office [place] [phone] MD [facility] [place] [address] 10/21/2023 10:30 AM EDT Appointment Nuclear Medicine at [place] [phone] Mary Reyes APRN [facility] DR [place] [address] 10/21/2023 11:30 AM EDT Appointment [place] [phone] [place] [address] 10/21/2023 12:30 PM EDT Appointment [place] [address]-1000 [place] [address] 10/21/2023 1:30 PM EDT Appointment [place] [address]-1000 [place] [address] 10/21/2023 2:30 PM EDT Appointment [place] [address] [place] [address] 10/26/2023 4:00 PM EDT Office Visit Cardiology at [address] [phone] Jaspreet Kinsey MD [facility] [place] [address] 10/28/2023 9:00 AM EDT Office [place] [address] 10/29/2023 10:00 AM EDT Clinical Support [place] [address] 10/29/2023 10:15 AM EDT Procedure [place] [address] 11/01/2023 5:00 PM EDT Office Visit Gastroenterology at [place] [phone] Selene Browning, PhD [facility] [place] [address] 11/22/2023 4:40 PM EDT [place] [phone] Porsha Mcdaniels MD [facility] [place] [address] 12/13/2023 10:00 AM EDT Clinical [place] [address] Lucero Romero, ALVA [facility] [place] [address] Scheduled Orders Name Type Priority Associated Diagnoses Orde r Schedule Spirometry without bronchodilator PFT Routine Asthma Ordered: 06/26/2010 documented as of this encounter Visit Diagnoses Diagnosis Asthma- Primary Unspecified asthma Rhinitis Chronic rhinitis Rhinitis, nonallergic, chronic Chronic rhinitis documented in this encounter Care Teams Water Taxi Captain Relationship Specialty Start Date End Date Faheem Romero MD [facility] 1 [facility] [place] [place] [address] PCP - General 06/11/10 08/27/19 documented as of this encounter
--- OUTSIDE RECORDS SUMMARY | 2023-10-02 22:50 | XMS_ITS | Encounter Summary ---
Author Organization [facility] [place] [address] Care Team Providers Care Urban Designer Name Role Phone Tim Rogers DNP Primary Care Provider [phone] Encounter Details Date Type Department Care Team (Late st Contact Info) Description 08/28/2019 [place] [address] Kia Angelo MD [facility] [place] [address] Social History Tobacco Use Types Packs/Day Years [...] Dr. Pooja Iyer, Dr. Weathers Patient Location: [facility] ED Reason for call: transfer request for [...] can keep and manage patient in the [facility] ED overnight pending bed availability (they do [...] AM EDT Tech [place] [address] Channing Escobedo [place] 10/08/2023 9:30 AM EDT Office Visit Vascular Surgery at [place] [phone] MD [facility] [place] [address] 10/21/2023 10:30 AM EDT Appointment Nuclear Medicine at [place] [phone] [place] [address] 10/21/2023 11:30 AM EDT Appointment Nuclear Medicine at [place] [phone] [place] [address] 10/21/2023 12:30 PM EDT Appointment [place] [phone] [place] [address] 10/21/2023 1:30 PM EDT Appointment [place] [address] Mary Reyes [facility] [place] [address] 10/21/2023 2:30 PM EDT Appointment [place] [address]-407156-1000 Mary Reyes APRN [facility] [place] [address] 10/26/2023 4:00 PM EDT Office Visit Cardiology at [address] [phone] Jaspreet Kinsey MD [facility] [place] [address] 10/28/2023 9:00 AM EDT Office [place] [address] 10/29/2023 10:00 AM EDT Clinical [place] [address] 10/29/2023 10:15 AM EDT Procedure [place] [address] 11/01/2023 5:00 PM EDT Office Visit [place] [phone] Selene Browning, PhD [facility] [address] 11/22/2023 4:40 PM EDT Office Visit Cardiology at [address] [phone] Porsha Mcdaniels MD [facility] [place] [address] 12/13/2023 10:00 AM EDT Clinical Support [place] [phone] [facility] [place] [address] documented as of this encounter Visit Diagnoses Not on filedocumented in this encounter Care Teams Urban Designer Relationship Specialty Start Date End Date Tim Rogers DNP PCP - General Family Medicine 08/28/19 06/08/21 documented as of this encounter
--- OUTSIDE RECORDS SUMMARY | 2023-10-02 22:50 | XMS_ITS | Encounter Summary ---
Author Organization [facility] [place] [address] Care Team Providers Care Marketing Sales Representative Name Role Phone Dustin Nino MD Primary Care Provider [phone] Encounter Details Date Type Department Care Team (Late st Contact Info) Description 06/17/2010 [place] [phone] Lashonda York MD [facility] [place] [address] Social History Tobacco Use Types Packs/Day Years [...] AM EDT Tech [place] [phone] [address] Escob[place] 10/08/2023 9:30 AM EDT Office [place] [phone] MD [facility] [place] [address] 10/21/2023 10:30 AM EDT Appointment Nuclear Medicine at [place] [phone] Mary Reyes [facility] [place] [address] 10/21/2023 11:30 AM EDT Appointment Nuclear Medicine at [place] [phone] Mary Reyes [facility] [place] [address] 10/21/2023 12:30 PM EDT Appointment Nuclear [place] [address]-1000 Mary Reyes [facility] [place] [address] 10/21/2023 1:30 PM EDT Appointment Nuclear Medicine at [place] [phone] Mary Reyes [facility] [place] [address] 10/21/2023 2:30 PM EDT Appointment Nuclear [place] [address] Mary Reyes [facility] [place] [address] 10/26/2023 4:00 PM EDT Office Visit Cardiology at [address] [address] Jaspreet Kinsey MD [facility] [place] [address] 10/28/2023 9:00 AM EDT Office [place] [address] 10/29/2023 10:00 AM EDT Clinical Support [place] [address] 10/29/2023 10:15 AM EDT Procedure [place] [address] 11/01/2023 5:00 PM EDT Office Visit Gastroenterology at [place] [phone] Selene Browning, PhD [facility] [place] [address] 11/22/2023 4:40 PM EDT Office Visit Cardiology at [place] [phone] Porsha Mcdaniels MD [facility] [place] [address] 12/13/2023 10:00 AM EDT Clinical [place] [address] Lucero Romero, LAVA [facility] [place] [address] documented as of this encounter Visit Diagnoses Not on filedocumented in this encounter Care Teams Marketing Sales Representative Relationship Specialty Start Date End Date Dustin Nino MD [facility] [address] [place] [address] PCP - General 06/11/10 08/27/19 documented as of this encounter
--- OUTSIDE RECORDS SUMMARY | 2023-10-02 22:50 | XMS_ITS | Encounter Summary ---
[place] [address] Care Team Providers Care Automatic Trimming Sewer Name Role Phone Tim Rogers DNP Primary Care Provider [phone] Reason for Visit * Auth/Cert Specialty Diagnoses / Procedures Referred By Jayant harris Referred To Contact Diagnoses NSTEMI (non-ST elevated myocardial infarction) NSTEMI Procedures EMERGNECY IPI Referral ID Status Reason Start Date Expiration Date Visits Re quested Visits Authorized [id number] 1 1 Encounter Details Date Type Department Care Team (Late st Contact Info) Description 08/30/2019 1:00 PM EDT - 08/30/2019 2:00 PM EDT Surgery [place] [phone] Jessee Malone MD [facility] [place] [address] CARDIAC CATHETERIZATION Social History Tobacco Use Types [...] this encounter Discharge Summaries * Natalia Urbina, PATIENT TRANSPORTATION DRIVER - 08/30/2019 5:18 PM EDT Images from the original note were not included. Discharge Summary Patient Name: Loida Roque Patient Age: 49 y.o. Language: Occitan Race: White Ethnicity: Not nor Admit date: [...] pain overnight ~3 weeksago concerning for missed NC. ??In the ED, her EKG was abnormal [...] follow-up visit please call one of the polyethylene bag machine operator on Wednesday-Wednesday between the hours of 8A- 5PM. Cardiology Clinic number @ [phone] If off hours contact the cardiac fellow on- call. Hospital Toby Maker can help you. Hospital phone number [phone] Return to work: In 1 week Drivin hours post catheterization Follow up Appointments: Doctor Where Phone # Date Time Bouchra Frias APRN [address] / [facility] [address] 09/13/19 8:30 Discharge References/Attachments None Discussed with MD Natalia Lira APRN Pager [phone] 08/31/2019 documented in this encounter Discharge Instructions * Discharge Instructions* Natalia Urbina APRN - 08/31/2019 3:54 PM EDT Call your doctor if: Chest pain, dyspnea, pain or swelling in legs occurs. If you have non-emergent questions, prior to your follow-up visit please call one of the polyethylene bag machine operator on Wednesday-Wednesday between the hours of 8A- 5PM. Cardiology Clinic number @ [phone] If off hours contact the cardiac fellow on- call. Hospital Toby Maker [facility] help you. [facility] phone number [phone] Return to work: In 1 week Drivin hours post catheterization Follow up Appointments: Doctor Where Phone # Date Time Bouchra Frias APRN [address] / [facility] [id number] 09/13/19 8:30 * Attachments The following attachments cannot be sent through Care Everywhere. * Cardiac Catheterization: Left (Occitan) documented in this encounter Medications at Time of Discharge Medication Sig Dispensed Refills Start Date End Date fluticasone propionate (FLONASE) 50 mcg/actuation Schuyler, Suspension 1 spray by Each Nare route [...] Spirometry Patient Loida Roque 49 y.o. 1970 [id number] Spirometry Spirometry performed successfully. Waiting for read by Pulmonology. Position: Patient position: Sitting up in bed. Effort: Patient Effort: Good Nose clips: Yes Comments Patient states it is hard to exhale. * Maia Vásquez, ERWIN - 08/31/2019 5:44 PM EDT Pt went through pulmonary test this afternoon. Pt ambulated in cheney with stand- by assist without any breathing or mobility difficulty. NSR on tele, VSS. Pt reviewed post cath restrictions and pulmonary follow-up appointment. Pt verbalized a good understanding. Pt's daughter at the East Entrance. Pt wheeled out of the unit with REGROOVER. * Leonardo Jolly - 08/31/2019 12:25 PM [...] consulted in the interim. Leonardo Jolly Pager: [phone] * Manish Benitez MD - 08/31/2019 9:33 AM EDT Images from the original note were not included. Inpatient Cardiology Progress Note Patient Name: Loida Roque Service: WATCHMAKING TEACHER / PA Responsible Attending: Manish Benitez MD [...] 49 BILITOT 0.7 BILIDIR 0.1 Recent Labs 08/31/1941108/30/19 02508/29/19 1510 CALCIUM 9.4 9.0 9.2 MAGNESIUM 0.92 [...] of report for additional findings. [facility] 08/29 Preliminary findings: Right dominant Normal coronary [...] overnight ~3 weeks ago concerning for missed NC. ??In the ED, her EKG was abnormal with diffuse STTW abnormalities but unchanged from prior EKG in 200 7.?Troponin??I??positive at 0.25 (ULN 0.06). ??Vitals stable and patient asymptomatic at rest. ??DDimer positive at 1037 thus??CT-PE protocol??completed. ??No PE or acute aortic pathology. ??She is transferred for further work up of NSTEMI. ??EF 62% and no wall motions seen on echo. [facility] with normal cors and LVEDP 15. Will [...] EF 62% and no WMA [facility] with normal cors A1C 5.4% Bedside PFTs today ?? FULL CODE Discussed with MD Natalia Lira, PATIENT TRANSPORTATION DRIVER Pager [phone] 08/31/2019 Cardiology Attending Note I interviewed and examined the patient during comprehensive bedside rounds. I concur with the summary of interval events, active hospital-focused problem list and plan of care as described in the note below. I personally reviewed the medications, laboratory results, treatment decisions and updated the patient. Manish Benitez MD, FACP, FACC Section of Cardiovascular Medicine [facility] Heat Pump Installerer nurse [facility] of Medicine at [facility] This patient meets or has met [...] Progress Note Patient Name: Loida Roque Service: WATCHMAKING TEACHER / PA Responsible Attending: Manish Benitez MD [...] BILITOT 0.7 BILIDIR 0.1 Recent Labs 08/30/19 02508/29/19 1510 CALCIUM 9.0 9.2 MAGNESIUM 0.90 -- [...] overnight ~3 weeks ago concerning for missed NC. 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 REVIEW OF SYSTEMS: Review of Systems [...] Dose ??? fluticasone propionate (FLONASE) 50 mcg/actuation Schuyler, Suspension 1 spray by Each Nare route [...] overnight ~3 weeks ago concerning for missed NC. In the ED, her EKG was abnormal with diffuse STTW abnormalities but unchanged from prior EKG in 2006. Troponin I positive at 0.25 (ULN 0.06). Vitals stable and patient asymptomatic at rest. DDimer positive [id number] thus CT-PE protocol completed. No PE or [...] MD, FACP, FACC Section of Cardiovascular Medicine [facility] Heat Pump Installerer nurse [facility] of Medicine at [facility] This patient meets or has met [...] Primary care provider on file: Tim Rogers, PATIENT TRANSPORTATION DRIVER [phone] Advance Directive on file and Code Status: Full Code Patient???s Functional Status: Independent w/o device Living Situation: lives with Boby Roque (Spouse) [phone] (M) at [address] [place] [address] Supports: Boby, Mother son and daughter Assessment: Patient with no apparent RNCM/SW needs at this time. No housing, transportation, insurance, resources concerns identified at this time. Supports in place to achieve a safe post-hospital transition. No identified barriers to accessing necessary care and/or follow-up after discharge. Plan: Patient to d/c to home when medically ready. crime scene investigator/Finishing Lab Technician will continue to follow patient???s progress and remain available if situation changes for coordination of care, psychosocial support and/or discharge planning. Angela Loving RN * Brief Op Note - Jessee Malone MD - 08/30/2019 2:31 PM EDT Preliminary Cardiac Catheterization Procedure Note: Patient Name: Loida Roque : [id number] MR#: [id number] Case Date: 08/30/2019 Toby Maker: Surgeon(s) and Role: * Jessee Malone MD - Primary * Luis Tatum PA - Fellow Preoperative diagnosis: ?CAD Postoperative diagnosis: * CAD * Procedure(s) performed: [facility] Coronary angio Access: Right radial A time-out [...] for further details. JOCY Montaño 08/30/2019 Pager [phone] * Plan of Care - Efrain Verma [...] [place] [address] [address] Escobedo [place] 10/08/2023 9:30 AM EDT Office Visit [place] [phone] MD [facility] [place] [address] 10/21/2023 10:30 AM EDT Appointment [place] [address] Calvino, Mary M, [facility] [place] [address] 10/21/2023 11:30 AM EDT Appointment Nuclear Medicine at [place] [phone] Mary Reyes [facility] [place] [address] 10/21/2023 12:30 PM EDT Appointment [place] [address] Mary Reyes [facility] [place] [address] 10/21/2023 1:30 PM EDT Appointment [place] [address] Mary Reyes [facility] [place] [address] 10/21/2023 2:30 PM EDT Appointment [place] [address] Mary Reyes [facility] [place] [address] 10/26/2023 4:00 PM EDT Office Visit Cardiology at [address] [phone] Jaspreet Kinsey MD [facility] [place] [address] 10/28/2023 9:00 AM EDT Office [place] [address] 10/29/2023 10:00 AM EDT Clinical [place] [address] 10/29/2023 10:15 AM EDT Procedure [place] [address] 11/01/2023 5:00 PM EDT Office [place] [address] Selene Browning, PhD [facility] [place] [address] 11/22/2023 4:40 PM EDT Office Visit Cardiology at [address] [phone] Porsha Mcdaniels MD [facility] [place] [address] 12/13/2023 10:00 AM EDT Clinical Support [place] [address] [facility] [place] [address] documented as of this encounter Procedures Procedure [...] WITHOUT bronchodialator (08/31/2019 6:24 PM EDT) Narrative Morocho, Zoe, MD - 08/31/2019 6:24 PM EDT Zoe Morocho MD ? 09/04/2019 ??3:14 PM Pulmonary Function Test Interpretation FEV1 is normal. FVC is reduced. ??The FEV1/FVC ratio is normal. 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%) Zoe Morocho MD Natalia Urbina PATIENT TRANSPORTATION DRIVER PFT ORDERABLES * EKG 12 Lead (08/31/2019 7:05 AM EDT) Ventricular rate 51 BPM MUSE SYSTEM Atrial Rate 51 BPM MUSE SYSTEM P-R Interval 186 ms MUSE SYSTEM QRS Duration 82 ms MUSE SYSTEM Q-T Interval 546 ms MUSE SYSTEM QTC Calculated (Bezet) 503 ms MUSE SYSTEM Calculated P Lynn 18 degrees MUSE SYSTEM Calculated R Lynn 52 degrees MUSE SYSTEM Calculated T Lynn 13 degrees MUSE SYSTEM INTERPRETATION Sinus bradycardia [...] 4:12 AM EDT) Neutrophils % 45.2 % [facility] Neutr Abs (ANC) 2.73 1.70 - 6.10 x10(3)/mc L [facility] Lymphocytes % 34.8 % [facility] Lymphocytes Abs 2.1 0.9 - 3.2 x10(3)/mc L [facility] Monocytes % 10.1 % [facility] Monocyte Abs 0.6 0.3 - 0.9 x10(3)/mc L [facility] Eosinophils % 8.9 % [facility] Eosinophils Abs 0.5(H) 0.0 - 0.4 x10(3)/[facility] Basophils % 0.8 % [facility] Basophils Abs 0.0 0.0 - 0.1 x10(3)/[facility] Immature Gran % 0.20 % [facility] [...] 0.04 x10(3)/[facility] Blood specimen (specimen) 08/31/2019 4:12 AM EDT 08/31/2019 4:29 AM EDT Narrative Resulting Agency Comment Spec In Lab Abeba SANDRA HEMATOLOGY ORDERABLE S [facility] [place] [address] * (ABNORMAL) Hemogram (08/31/2019 4:12 AM EDT) WBC 6.0 4.0 - 9.5 x10(3)/[facility] LABORATORY RBC 5.08 4.00 - 5.21 x10(6)/[facility] LABORATORY Hemoglobin 15.7(H) 11.7 - 15.5 gm/dL [facility] Hematocrit 47.0(H) 35.7 - 45.8 % [facility] MCV 92.5 82.6 - 94.4 fL [facility] MCH 30.9 27.1 - 32.0 pg [facility] MCHC 33.4 31.7 - 35.0 gm/dL [facility] Platelets 255 145 - 357 x10(3)/[facility] LABORATORY RDWSD 45.3 37.0 - 46.0 fL [facility] RDWCV 13.2 11.5 - 14.1 % [facility] MPV 11.4 7.6 - 12.9 fL [facility] nRBC % Auto 0.0 % [facility] nRBC Abs Auto 0.000 0.000 - 0.000 x10(3)/[facility] LABORATORY Blood specimen (specimen) 08/31/2019 4:12 AM EDT 08/31/2019 4:29 AM EDT Narrative Resulting Agency Comment Spec In Lab [place] SANDRA HEMATOLOGY ORDERABLE S Performing Organization Address [facility]/ZIP Co de Phone Number [facility] [place] [address] * Magnesium (08/31/2019 4:12 AM EDT) Magnesium 0.92 0.69 - 1.07 mmol/L [facility] Blood specimen (specimen) 08/31/2019 4:12 AM EDT 08/31/2019 4:29 AM EDT Narrative Resulting Agency Comment Spec In Lab Manish Benitez MD CHEMISTRY ORDERABL ES Performing Organization Address [facility] Co de Phone Number [facility] [place] [address] * (ABNORMAL) BMP w/fasting Glucose (08/31/2019 4:12 [...] of Diabetes Mellitus, Position Statement from the [place] Diabetes Association. ??Diabetes Care, Volume 33, Supplement [...] of body mass or the acutely ill. [email or web address]://[employer]/[facility] eGFR 85 >=60 mL/min/1. 73 m?? [facility] Comment: The eGFR was calculated using the CKD-EPI equation. As with all creatinine based estimates of kidney function, eGFR values calculated with the CKD-EPI equation are not accurate in patients with acute kidney failure, extremes of body mass or the acutely ill. http://Gu[employer]/[facility] Blood specimen (specimen) 08/31/2019 4:12 AM EDT 08/31/2019 4:29 AM EDT Narrative Resulting Agency Comment Spec In Lab Manish Benitez MD CHEMISTRY ORDERABL ES Performing Organization Address [facility]/State/ZIP Co de Phone Number [facility] [place] [address] * CARDIAC CATHETERIZATION (08/30/2019 2:40 PM EDT) Anatomical Region Laterality Modality Other Narrative 08/30/2019 2:59 PM EDT ?[facility] ? Cardiac Catheterization/Intervention Report ? Patient Name: Neisha, Loida ? Procedure Date: 08/30/2019 ? A #: [id number] ? Primary Physician: Kira, Jessee T ? Case #: [id number] ? File Name: [id number] ? Catheterization Order Number: [id number] ? [facility] ? Final Report [place], [place] ? Patient Name: ? Loida Neisha ? ID#: ?[id number] ? : ?1970 ? Procedure Date: ? [...] procedure was Urgent. The indication for ?the curb and gutter laborer visit is ACS less than or [...] Procedure Note Jessee Malone MD - 08/30/2019 [facility] Cardiac Catheterization/Intervention Report Patient Name: Loida Roque Procedure Date: 08/30/2019 A #: [id number] Primary Physician: Jessee Malone Case #: [id number] File Name: [id number] Catheterization Order Number: [id number] [facility] FinalReport [place], [place] Patient Name: Loida Roque ID#:[id number] :1970 Procedure Date: August 30, 2019 Case [...] was designated as ASA Class III. The [facility] clinical frailtyscale is 2: Well. Diagnostic Tests: Prior Coronary Angiography: LV ejection fraction within 6 months is 65%. Medications Prior to Procedure: Aspirin. Indications for Diagnostic Cath: The priority of the diagnostic procedure was Urgent. The indicationfor the curb and gutter laborer visit is ACS less than or equal to 24 hrs. Chest pain symptom assessment was: Typical Angina. Technique: A 6 SLFr sheath was inserted in the right radial artery utilizingthe Seldinger technique. The left coronary artery was injected utilizinga 5Fr EBU 3.0 catheter. A 5Fr VERONICA RADIAL catheter was used to injectthe right coronary artery. Left ventricular pressure was performed witha 5Fr VEORNICA RADIAL catheter. A total of 100cc of [...] ?NEISHA LOIDA ?(Age): 1970(49y) Med Rec#: ? [id number] ?Sex: ?F ? Site Loc: ? [facility] ?Ht / Wt: ??163(cm)/94(kg) Pt. Loc: ?Adult Floor ? BSA: ?1.99 Study Date: ?? 08/30/2019 ?Pt. Type: Inpatient Tape: ? Referring: POOJA IYER J Reading: Jose Chambers ([id number]) Automotive Heavy Mechanic: Jaspreet Oneil [facility] Interpreting Fellow: Poncho Yates ([id number]) Diagnosis: *Non-ST elevation (NSTEMI) myocardial infarction (I21.4) [...] Vmax ?0.35 ? m/sec ? MV deceleration [id number] ?msec ? MV A-wave Vmax ?0.25 ? [...] ? Mid-Inferior ?Normal ? Mid-Inferoseptal ?Normal ? [place]-Septal ? Normal ? [place]-Anterior ? Normal ? [place]-Lateral ?Normal ? [place]-Inferior ? Normal ? [place]-Tip ?Normal ? This report has been electronically signed by: Jose Chambers MD ? 08/30/2019 14:21:57 Images reviewed and interpretation verified [facility] Cardiac Ultrasound Laboratory Procedure Note Jose Chambers MD - 08/30/2019 Procedure: Transthoracic Echocardiogram Patient: NEISHA VÁSQUEZ(Age): 1970(49y) Med Rec#: [id number] Sex: F Site Loc: [facility] Ht / Wt: 163(cm)/94(kg) Pt. Loc: Adult Floor BSA: 1.99 Study Date: 08/30/2019 Pt. Type: Inpatient Tape: Referring: POOJA IYER J Reading: Jose Chambers ([id number]) Automotive Heavy Mechanic: Jaspreet Oneil RD Interpreting Fellow: Poncho Yates ([id number]) Diagnosis: *Non-ST elevation (NSTEMI) myocardial infarction (I21.4) [...] MV E-wave Vmax 0.35 m/sec MV deceleration [id number] msec MV A-wave Vmax 0.25 m/sec MV [...] Normal Mid-Posterolateral Normal Mid-Inferior Normal Mid-Inferoseptal Normal [place]-Septal Normal [place]-Anterior Normal [place]-Lateral Normal [place]-Inferior Normal [place]-Tip Normal This report has been electronically signed by: Jose Chambers MD 08/30/2019 14:21:57 Images reviewed and interpretation verified [facility] Cardiac Ultrasound Laboratory Manish Benitez MD ECHO ORDERABLES * EKG 12 Lead (08/30/2019 10:28 AM EDT) Ventricular rate 52 BPM MUSE SYSTEM Atrial Rate 52 BPM MUSE SYSTEM P-R Interval 162 ms MUSE SYSTEM QRS Duration 84 ms MUSE SYSTEM Q-T Interval 536 ms MUSE SYSTEM QTC Calculated (Bezet) 498 ms MUSE SYSTEM Calculated P Lynn -9 degrees MUSE SYSTEM Calculated R Lynn 43 degrees MUSE SYSTEM Calculated T Lynn -27 degrees MUSE SYSTEM INTERPRETATION Sinus bradycardia [...] AM EDT) Heparin UFH Level 0.44 IU/mL [facility] Comment: Guidelines for therapeutic unfractionated [...] MD HEMATOLOGY ORDERAB LES Performing Organization Address City/State/[facility] Co de Phone Number [facility] [place] [address] * (ABNORMAL) Differential, Automated (08/30/2019 2:53 AM EDT) Neutrophils % 52.4 % [facility] Neutr Abs (ANC) 3.85 1.70 - 6.10 x10(3)/[facility] Lymphocytes % 29.3 % [facility] Lymphocytes Abs 2.2 0.9 - 3.2 x10(3)/[facility] Monocytes % 9.1 % [facility] Monocyte Abs 0.7 0.3 - 0.9 x10(3)/[facility] Eosinophils % 8.6 % [facility] Eosinophils Abs 0.6(H) 0.0 - 0.4 x10(3)/[facility] Basophils % 0.5 % [facility] Basophils Abs 0.0 0.0 - 0.1 x10(3)/[facility] Immature Gran % 0.10 % [facility] [...] 0.04 x10(3)/[facility] Blood specimen (specimen) 08/30/2019 2:53 AM EDT 08/30/2019 3:01 AM EDT Narrative Resulting Agency Comment Spec In Lab [place] SANDRA HEMATOLOGY ORDERABLE S [facility] [place] [address] * (ABNORMAL) Hemogram (08/30/2019 2:53 AM EDT) WBC 7.4 4.0 - 9.5 x10(3)/[facility] LABORATORY RBC 4.84 4.00 - 5.21 x10(6)/[facility] LABORATORY Hemoglobin 14.8 11.7 - 15.5 gm/dL [facility] Hematocrit 44.8 35.7 - 45.8 % [facility] MCV 92.6 82.6 - 94.4 fL [facility] MCH 30.6 27.1 - 32.0 pg [facility] MCHC 33.0 31.7 - 35.0 gm/dL [facility] Platelets 272 145 - 357 x10(3)/[facility] LABORATORY RDWSD 46.2(H) 37.0 - 46.0 [facility] LABORATORY RDWCV 13.5 11.5 - 14.1 % [facility] MPV 10.9 7.6 - 12.9 [facility] LABORATORY nRBC % Auto 0.0 % [facility] nRBC Abs Auto 0.000 0.000 - 0.000 x10(3)/[facility] LABORATORY Blood specimen (specimen) 08/30/2019 2:53 AM EDT 08/30/2019 3:01 AM EDT Narrative Resulting Agency Comment Spec In Lab [place] SANDRA HEMATOLOGY ORDERABLE S [facility] [place] [address] * Magnesium (08/30/2019 2:53 AM EDT) Pathologist [facility] Magnesium 0.90 0.69 - 1.07 mmol/L [facility] Blood specimen (specimen) 08/30/2019 2:53 AM EDT 08/30/2019 3:01 AM EDT Narrative Resulting Agency Comment Spec In Lab Manish Benitez MD CHEMISTRY ORDERABL ES [facility] [place] [address] * (ABNORMAL) BMP w/fasting Glucose (08/30/2019 2:53 [...] of Diabetes Mellitus, Position Statement from the [place] Diabetes [employer]. ??Diabetes Care, Volume 33, Supplement [...] of body mass or the acutely ill. http://[email or web address]/[facility] eGFR 69 >=60 mL/min/1. 73 m?? [facility] Comment: The eGFR was calculated using the CKD-EPI equation. As with all creatinine based estimates of kidney function, eGFR values calculated with the CKD-EPI equation are not accurate in patients with acute kidney failure, extremes of body mass or the acutely ill. http://[employer]/[facility] Blood specimen (specimen) 08/30/2019 2:53 AM EDT 08/30/2019 3:01 AM EDT Narrative Resulting Agency Comment Spec In Lab Manish Benitez MD CHEMISTRY ORDERABL ES Performing Organization Address [facility] Co de Phone Number [facility] [place] [address] * Triglyceride (08/30/2019 2:53 AM EDT) Triglycerides 203 mg/dL [facility] Comment: Average Risk/Lower Risk: <150 mg/dL Borderline High Risk: 150-199 mg/dL High Risk: 200-499 mg/dL Very High Risk: >cp=364 mg/dL Blood specimen (specimen) 08/30/2019 2:53 AM EDT 08/30/2019 3:01 AM EDT Narrative Resulting Agency Comment Spec In Lab Manish Benitez MD CHEMISTRY ORDERABL ES Performing Organization Address City/[facility]/ZIP Co de Phone Number [facility] [place] [address] * HDL/Cholesterol Profile (08/30/2019 2:53 AM EDT) Chol, Total 220 mg/dL [facility] Comment: Lower Risk: <200 mg/dL Average Risk: 200-239 mg/dL Higher Risk: >ru=500 mg/dL HDL 34 mg/dL [facility] [...] greater than or equal to 190 mg/dL. [email or web address]-[email or web address] Measure LDL if Total Cholesterol minus HDL Cholesterol is greater than 220 mg/dL. Adults aged 40-75 with LDL 70-189 mg/dL should have their 10 year ASCVD risk estimated with the ACC/AHA ASCVD risk five roll refiner batch mixer http://tools.acc.org/VHQQJ-Ixif-Vuxuljzxh/ Statin should be discussed if risk greater [...] CHEMISTRY ORDERABL ES [facility] [place] [address] * LDL Cholesterol, Direct (08/30/2019 2:53 AM EDT) LDL Chol Direct 165 mg/dL [facility] Comment: Lowest Risk: <100 mg/dL Lower Risk: 100-129 mg/dL Borderline High Risk: 130-159 mg/dL High Risk: 160-189 mg/dL Very High Risk: >ov=484 mg/dL Blood specimen (specimen) 08/30/2019 2:53 AM EDT 08/30/2019 3:01 AM EDT Narrative Resulting Agency Comment Spec In Lab Manish Benitez MD CHEMISTRY ORDERABL ES [facility] [place] [address] * Hemoglobin A1c (08/30/2019 2:53 AM EDT) [...] 1, S67-74 Est Avg Gluc 108 mg/dL [facility] Comment: eAG equivalents for HbA1c [...] into estimated average glucose values. ??Diabetes Care 2008:31(8):0997-4858. Blood specimen (specimen) 08/30/2019 2:53 AM EDT 08/30/2019 3:01 AM EDT Narrative Resulting Agency Comment Spec In Lab Manish Benitez MD CHEMISTRY ORDERABL ES Performing Organization Address [facility] Co de Phone Number [facility] [place] [address] * CK (08/30/2019 2:53 AM EDT) CK, Total 82 0 - 160 unit/L [facility] Blood specimen (specimen) 08/30/2019 2:53 AM EDT 08/30/2019 3:01 AM EDT Narrative Resulting Agency Comment Spec In Lab Manish Benitez MD CHEMISTRY ORDERABL ES Performing Organization Address [facility] de Phone Number [facility] [place] [address] * Troponin (08/30/2019 2:53 AM EDT) [facility] Troponin-T <0.01 0.00 - 0.00 ng/mL [facility] Comment: The 99th percentile for Troponin T is less than 0.01 ng/mL, any detectable cTnT concentration using this assay should be considered elevated. According to the third universal definition of myocardial infarction the following criteria with a clinical presentation consistent with acute myocardial ischemia meets the diagnosis for a myocardial infarction (NC). Detection of a rise and/or fall of cTnT, with at least one value greater than the 99th percentile (> or = 0.01) and with at least one of the following ?? Symptoms of ischemia ?? New or presumed new significant RY-dgiitaq-K wave (ST-T) changes or new left bundle [...] additional sample may be indicated. Reference: Third [place] Definition of Myocardial Infarction. Journal of the [place] [employer] 2012;60:1581-98 Blood specimen (specimen) 08/30/2019 2:53 AM EDT 08/30/2019 3:01 AM EDT Narrative Resulting Agency Comment Spec In Lab Manish Benitez MD CHEMISTRY ORDERABL ES [facility] [place] [address] * (ABNORMAL) Differential, Automated (08/29/2019 8:30 PM EDT) Neutrophils % 56.5 % [facility] Neutr Abs (ANC) 3.58 1.70 - 6.10 x10(3)/mc L [facility] Lymphocytes % 25.9 % [facility] Lymphocytes Abs 1.6 0.9 - 3.2 x10(3)/mc L [facility] Monocytes % 8.8 % [facility] Monocyte Abs 0.6 0.3 - 0.9 x10(3)/mc L [facility] Eosinophils % 7.7 % [facility] Eosinophils Abs 0.5(H) 0.0 - 0.4 x10(3)/mc L [facility] Basophils % 0.8 % [facility] [...] HEMATOLOGY ORDERABLE S [facility] [place] [address] * (ABNORMAL) Hemogram (08/29/2019 8:30 PM EDT) WBC 6.3 4.0 - 9.5 x10(3)/[facility] LABORATORY RBC 5.03 4.00 - 5.21 x10(6)/[facility] Hemoglobin 15.3 11.7 - 15.5 gm/dL [facility] Hematocrit 46.4(H) 35.7 - 45.8 % [facility] MCV 92.2 82.6 - 94.4 [facility]ATORY MCH 30.4 27.1 - 32.0 pg [facility] MCHC 33.0 31.7 - 35.0 gm/dL [facility] Platelets 267 145 - 357 x10(3)/[facility] LABORATORY RDWSD 46.4(H) 37.0 - 46.0 [facility] LABORATORY RDWCV 13.6 11.5 - 14.1 % [facility] MPV 11.3 7.6 - 12.9 [facility] LAB[facility] nRBC % Auto 0.0 % [facility] nRBC Abs Auto 0.000 0.000 - 0.000 x10(3)/[facility] Blood specimen (specimen) 08/29/2019 8:30 PM EDT 08/29/2019 9:11 PM EDT Narrative Resulting Agency Comment Spec In Lab [place] SANDRA HEMATOLOGY ORDERABLE S Performing Organization Address [facility] Co de Phone Number [facility] [place] [address] * Heparin (unfractionated) Level (08/29/2019 8:30 PM EDT) Heparin UFH Level 0.46 IU/mL [facility] Comment: Guidelines for therapeutic unfractionated [...] HEMATOLOGY ORDERAB LES [facility] [place] [address] * CK (08/29/2019 8:30 PM EDT) CK, Total 94 0 - 160 unit/L [facility] Blood specimen (specimen) 08/29/2019 8:30 PM EDT 08/29/2019 9:11 PM EDT Narrative Resulting Agency Comment Spec In Lab Manish Benitez MD CHEMISTRY ORDERABL ES Performing Organization Address [facility] Co de Phone Number [facility] [place] [address] * Troponin (08/29/2019 8:30 PM EDT) Troponin-T [...] meets the diagnosis for a myocardial infarction (NC). Detection of a rise and/or fall of cTnT, with at least one value greater than the 99th percentile (> or = 0.01) and with at least one of the following ?? Symptoms of ischemia ?? New or presumed new significant QR-zumjrny-A wave (ST-T) changes or new left bundle [...] additional sample may be indicated. Reference: Third [place] Definition of Myocardial Infarction. Journal of the [place] College of [employer]iology 2012;60:1581-98 Blood specimen (specimen) 08/29/2019 8:30 PM EDT 08/29/2019 9:11 PM EDT Narrative Resulting Agency Comment Spec In Lab Manish Benitez MD CHEMISTRY ORDERABL ES Performing Organization Address [facility] Co de Phone Number [facility] [place] [address] * EKG 12 Lead (08/29/2019 4:19 PM EDT) Ventricular rate 67 BPM MUSE SYSTEM Atrial Rate 67 BPM MUSE SYSTEM P-R Interval 164 ms MUSE SYSTEM QRS Duration 80 ms MUSE SYSTEM Q-T Interval 478 ms MUSE SYSTEM QTC Calculated (Bezet) 505 ms MUSE SYSTEM Calculated P Lynn 34 degrees MUSE SYSTEM Calculated R Lynn 30 degrees MUSE SYSTEM Calculated T Lynn -29 degrees MUSE SYSTEM INTERPRETATION Demand pacemaker; [...] 3:10 PM EDT) Neutrophils % 58.3 % [facility] Neutr Abs (ANC) 3.79 1.70 - 6.10 x10(3)/ L [facility] Lymphocytes % 22.7 % [facility] Lymphocytes Abs 1.5 0.9 - 3.2 x10(3)/[facility] LAB[facility] Monocytes % 10.3 % [facility] Monocyte Abs 0.7 0.3 - 0.9 x10(3)/ L [facility] Eosinophils % 7.8 % [facility] Eosinophils Abs 0.5(H) 0.0 - 0.4 x10(3)/mc L [facility] Basophils % 0.6 % [facility] Basophils [...] HEMATOLOGY ORDERABLE S [facility] [place] [address] * (ABNORMAL) Hemogram (08/29/2019 3:10 PM EDT) WBC 6.5 4.0 - 9.5 x10(3)/[facility] LABORATORY RBC 4.69 4.00 - 5.21 x10(6)/[facility] LAB[facility]ATORY Hemoglobin 14.1 11.7 - 15.5 gm/dL [facility] Hematocrit 43.8 35.7 - 45.8 % [facility] MCV 93.4 82.6 - 94.4 [facility] LABORATORY MCH 30.1 27.1 - 32.0 pg [facility] MCHC 32.2 31.7 - 35.0 gm/dL [facility] Platelets 235 145 - 357 x10(3)/[facility] LABORATORY RDWSD 47.2(H) 37.0 - 46.0 [facility] LABORATORY RDWCV 13.7 11.5 - 14.1 % [facility] MPV 11.5 7.6 - 12.9 [facility] LAB[facility]ATORY nRBC % Auto 0.0 % [facility] nRBC Abs Auto 0.000 0.000 - 0.000 x10(3)/[facility] Blood specimen (specimen) 08/29/2019 3:10 PM EDT 08/29/2019 3:50 PM EDT Narrative Resulting Agency Comment Spec In Lab [place] SANDRA HEMATOLOGY ORDERABLE S Performing Organization Address [facility]/ZIP Co de Phone Number [facility] [place] [address] * Hepatic Function Panel (08/29/2019 3:10 PM EDT) [facility] Total Protein 7.1 6.1 - 8.0 [...] CHEMISTRY ORDERABL ES Performing Organization Address [facility] Co de Phone Number [facility] [place] [address] * TSH (08/29/2019 3:10 PM EDT) [facility] TSH 1.87 0.27 - 4.20 mcIU/mL [facility] Blood specimen (specimen) 08/29/2019 3:10 PM EDT 08/29/2019 3:52 PM EDT Narrative Resulting Agency Comment Spec In Lab Manish Benitez MD CHEMISTRY ORDERABL ES Performing Organization Address [facility]/ZIP Co de Phone Number [facility] [place] [address] * (ABNORMAL) pro-Brain Natriuretic Peptide (08/29/2019 3:10 PM EDT) [facility] ProBNP 1,242(H) <=125 pg/mL [facility] Blood specimen (specimen) 08/29/2019 3:10 PM EDT 08/29/2019 3:52 PM EDT Narrative Resulting Agency Comment Spec In Lab Manish Benitez MD CHEMISTRY ORDERABL ES Performing Organization Address [facility]/ZIP Co de Phone Number [facility] [place] [address] * CK (08/29/2019 3:10 PM EDT) [facility] CK, Total 96 0 - 160 unit/L [facility] Blood specimen (specimen) 08/29/2019 3:10 PM EDT 08/29/2019 3:52 PM EDT Narrative Resulting Agency Comment Spec In Lab Manish Benitez MD CHEMISTRY ORDERABL ES Performing Organization Address [facility] Co de Phone Number [facility] [place] [address] * Troponin (08/29/2019 3:10 PM EDT) [facility] Troponin-T <0.01 0.00 - 0.00 ng/mL [facility] Comment: The 99th percentile for Troponin T is less than 0.01 ng/mL, any detectable cTnT concentration using this assay should be considered elevated. According to the third universal definition of myocardial infarction the following criteria with a clinical presentation consistent with acute myocardial ischemia meets the diagnosis for a myocardial infarction (NC). Detection of a rise and/or fall of cTnT, with at least one value greater than the 99th percentile (> or = 0.01) and with at least one of the following ?? Symptoms of ischemia ?? New or presumed new significant RE-ptnudwo-I wave (ST-T) changes or new left bundle [...] additional sample may be indicated. Reference: Third [place] Definition of Myocardial Infarction. Journal of the [place] [employer] 2012;60:1581-98 Blood specimen (specimen) 08/29/2019 3:10 PM EDT 08/29/2019 3:52 PM EDT Narrative Resulting Agency Comment Spec In Lab Manish Benitez MD CHEMISTRY ORDERABL ES Performing Organization Address [facility] de Phone Number [facility] [place] [address] * (ABNORMAL) APTT (08/29/2019 3:10 PM EDT) [...] MD HEMATOLOGY ORDERAB LES Performing Organization Address [facility] Co de Phone Number [facility] [place] [address] * (ABNORMAL) Prothrombin Time (08/29/2019 3:10 PM EDT) PT 13.3(H) 9.4 - 12.5 sec [facility] INR 1.2 [facility] Comment: An INR [...] HEMATOLOGY ORDERAB LES [facility] [place] [address] * (ABNORMAL) Basic Metabolic Panel (non-fasting) (08/29/2019 [...] of body mass or the acutely ill. http://Guavus/DHnkf eGFR 94 >=60 mL/min/1. 73 m?? [facility] Comment: The eGFR was calculated using the CKD-EPI equation. As with all creatinine based estimates of kidney function, eGFR values calculated with the CKD-EPI equation are not accurate in patients with acute kidney failure, extremes of body mass or the acutely ill. http://Guavus/DHMCnkf Blood specimen (specimen) 08/29/2019 3:10 PM EDT 08/29/2019 3:52 PM EDT Narrative Resulting Agency Comment Spec In Lab Manish Benitez MD CHEMISTRY ORDERABL ES [facility] [place] [address] documented in this encounter Visit Diagnoses Not [...] - Provider: Mark Nick RN) 1357 ([facility] Hold - Provider: Admin Adt - Reason: Transfer to a Procedural area)1530 ([facility] Unhold - Provider: Admin Adt) clopidogreL (Plavix) tablet 75 mg (CANCELED) 75 mg, Oral, DAILY, First dose on Wed08/30/19 at 0900, Until Discontinued, Routine 0842 (Given - Provider: Mark Nick RN)1357 ([facility] Hold - Provider: Admin Adt - Reason: Transfer to a Procedural area)153 ([facility] Unhold - Provider: Admin Adt) DULoxetine DR (Cymbalta) capsule 60 mg 60 mg, Oral, NIGHTLY, First dose on Wed08/29/19 at 2100, Until Discontinued, Routine 2047 (Given - Provider: Efrain Verma RN) 1357 ([facility] Hold - Provider: Admin Adt - Reason: Transfer to a Procedural area)153 ([facility] Unhold - Provider: Admin Adt)2029 (Given - Provider: Gauri Arroyo RN) furosemide (LASIX) injection 40 mg (COMPLETED) 40 mg, Intravenous, ONCE, 1 dose, On Wed08/29/19 at 1800, Routine 1724 (Given - Provider: Mark Nick RN) gabapentin (Neurontin) capsule 300 mg 300 mg, Oral, 2 TIMES DAILY, First dose on Wed08/29/19 at 2100, Until Discontinued, Routine 2047 (Given - Provider: Efrain Verma, ERWIN) 0842 (Given - Provider: Mark Nick RN)1357 ([facility] Hold - Provider: Admin Adt - Reason: Transfer to a Procedural area)153 ([facility] Unhold - Provider: Admin Adt)2029 (Given - Provider: Gauri Arroyo RN) 0818 (Given - Provider: Maia Vásquez, ERWIN) heparin (Porcine) subcutaneous injection 5,000 Units 5,000 Units, Subcutaneous, EVERY 12 HOURS SCHEDULED (2 times per day), First dose on Wed08/30/19 at 2100, Until Discontinued, Routine 2030 (Given - Provider: Gauri Arroyo, ERWIN) 0818 (Given - Provider: Maia Vásquez, ERWIN) potassium chloride ER (K-Dur/Klor-Con) tablet 40 mEq [...] OPEN, Routine 2048 (Given - Provider: Efrain Verma [...] last 24 to 72 hours., Routine 1357 ([facility] Hold - Provider: Admin Adt - Reason: Transfer to a Procedural area)1530 ([facility] Unhold - Provider: Admin Adt) perflutren protein-A [...] 08/31/19 at 2025, Sleep, insomnia, Routine 1357 ([facility] Hold - Provider: Admin Adt - Reason: Transfer to a Procedural area)1530 ([facility] Unhold - Provider: Admin Corin) Linked Groups Order Group 1: heparin (porcine) [...] UA) documented in this encounter Care Teams Automatic Trimming Sewer Relationship Specialty Start Date End Date Tim Rogers DNP PCP - General Family Medicine 08/28/19 06/08/21 documented as of this encounter
--- OUTSIDE RECORDS SUMMARY | 2023-10-02 22:50 | XMS_ITS | Encounter Summary ---
Author Organization Formerly [facility] [place] [address] Care Team Providers Care Pulp Operator Name Role Phone Tim Rogers DNP Primary Care Provider Encounter Details Date Type Department Care Team (Late st Contact Info) Description 08/28/2019 Ancillary Procedure [place] [phone] Veronica Bello, RUG SIZER [address] [place], [place] [address] Social History Tobacco Use Types Packs/Day Years [...] AM EDT Tech [place] [phone] [place] 10/08/2023 9:30 AM EDT Office Visit [place] [phone] MD [facility] DR VASCULAR SURGERY [place], [place] [phone] 10/21/2023 10:30 AM EDT Appointment Nuclear Medicine at [place] [phone] Mary Reyes [facility] [place] [address] 10/21/2023 11:30 AM EDT Appointment Nuclear Medicine at [address] Mary Reyes [facility] [place] [address] 10/21/2023 12:30 PM EDT Appointment [place] [phone] Mary Reyes [facility] [place] [address] 10/21/2023 1:30 PM EDT Appointment [place] [address] Mary Reyes [facility] [place] [address] 10/21/2023 2:30 PM EDT Appointment [place] [address] Mary Reyes [facility] [place] [address] 10/26/2023 4:00 PM EDT Office Visit Cardiology at [address] [phone] Jaspreet Kinsey MD [facility] [place] [address] 10/28/2023 9:00 AM EDT Office [place] [address] 10/29/2023 10:00 AM EDT Clinical Support [place] [address] 10/29/2023 10:15 AM EDT Procedure [place] [address] 11/01/2023 5:00 PM EDT Office Visit [place] [phone] Selene Browning, PhD [facility] [place] [address] 11/22/2023 4:40 PM EDT Office Visit Cardiology at [address] [phone] Porsha Mcdaniels MD [facility] [place] [address] 12/13/2023 10:00 AM EDT Clinical Support [place] [address] [facility] [place] [address] documented as of this encounter Procedures Procedure Name Priority Date/Time Associated Diagnosis Comments FILM LIBRARY STORAGE ONLY DX CHEST Routine 08/28/2019 12:00 AM EDT documented in this encounter Results * Film Library- Storage Only DX Chest (08/28/2019 12:00 AM EDT) Narrative [facility] - 08/29/2019 1:45 PM EDT This exam is auto-finalizing. It's purpose is for storage only. Veronica Willis Ace RUG SIZER IMG FILM LIBRARY ORD ERABLES [place], [place] documented in this encounter Visit Diagnoses Not on filedocumented in this encounter Care Teams Pulp Operator Relationship Specialty Start Date End Date Tim Rogers DNP PCP - General Family Medicine 08/28/19 06/08/21 documented as of this encounter
--- OUTSIDE RECORDS SUMMARY | 2023-10-02 22:50 | XMS_ITS | Encounter Summary ---
Author Organization Formerly [facility] [address] Care Team Providers Care Service Coordinator Elderly Facility Name Role Phone Tim Rogers DNP Primary Care Provider Encounter Details Date Type Department Care Team (Late st Contact Info) Description 08/28/2019 External Results [place] [phone] Social History Tobacco Use Types Packs/Day Years [...] AM EDT Tech Visit [place] [phone] [address] [place] 10/08/2023 9:30 AM EDT Office [place] [phone] MD [facility] [place] [address] 10/21/2023 10:30 AM EDT Appointment [place] [phone] Mary Reyes NURSE RECRUITER [facility] [place] [address] 10/21/2023 11:30 AM EDT Appointment Nuclear Medicine at [place] [phone] Mary Reyes [place] [address] 10/21/2023 12:30 PM EDT Appointment [place] [address] Mary Reyes [facility] [place] [address] 10/21/2023 1:30 PM EDT Appointment [place] [address] Mary Reyes [place] [address] 10/21/2023 2:30 PM EDT Appointment [place] [address] Mary Reyes [place] [address] 10/26/2023 4:00 PM EDT Office Visit Cardiology at [address] [phone] Jaspreet Kinsey MD [facility] [place] [address] 10/28/2023 9:00 AM EDT Office Visit [place] [address] 10/29/2023 10:00 AM EDT Clinical Support [place] [address] 10/29/2023 10:15 AM EDT Procedure visit [place] [address] 11/01/2023 5:00 PM EDT Office Visit Gastroenterology at [place] [phone] Selene Browning, PhD [facility] DR PS[place] [address] 11/22/2023 4:40 PM EDT Office Visit Cardiology at [address] [phone] Porsha Mcdaniels MD [facility] [place] [address] 12/13/2023 10:00 AM EDT Clinical [place] [address] Lucero Romero, ALVA [facility] [place] [address] documented as of this encounter Procedures Procedure Name Priority Date/Time Associated Diagnosis Comments ECG SCAN Routine 08/28/2019 documented in this encounter Results * Scan Doc: ECG (08/28/2019) Historical Provider MD FLEMING MGTalia SCAN EX T ORDR/RSLT documented in this encounter Visit Diagnoses Not on filedocumented in this encounter Care Teams Service Coordinator Elderly Facility Relationship Specialty Start Date End Date Tim Rogers DNP PCP - General Family Medicine 08/28/19 06/08/21 documented as of this encounter
== END 2023-10-02 22:34 | disposition home or self-care (01) ==
LOC: LBN 22:33
PROVIDERS: PCP Physician Assistant; Visit Provider Family Medicine
DX: E87.6 Hypokalemia (principal); N18.30 Chronic kidney disease, stage 3 unspecified; N17.9 Acute kidney failure, unspecified
CPT/HCPCS: 80048

== ENCOUNTER 2023-10-05 16:51 | Emergency (ER) | payer BC, SELFPAY ==
--- NOTE | 2023-10-05 16:45 | DI.RAD_ITS ---
Exam(s) XR ANKLE LT COMPLETE EXAM: XR ANKLE LT COMPLETE CLINICAL HISTORY: L ankle pain s/p twisting injury TECHNIQUE: 2D digital imaging was performed of the left ankle. Three images were obtained. AP, lat eral and oblique views were obtained. COMPARISON: CR LEFT ANKLE COMPLETE from 10/31/2007 FINDINGS: BONES: No acute fracture is present. No bony destructive lesion is seen. There is a small plantar edy caneal spur. JOINTS:The ankle mortise is normally aligned. There is an ankle joint effusion. SOFT TISSUE: Normal. IMPRESSION: 1. No acute fracture or dislocation. 2. Ankle joint effusion. 3. Soft tissue swelling around the ankle particularly laterally. DATA REPOSITORY: RADIATION DOSE DELIVERED:
[2023-10-05 16:53] VITALS: BP 115/68; PULSE 57; RESP 18; TEMP 36.7; O2SAT 97
--- OUTSIDE RECORDS SUMMARY | 2023-10-05 16:58 | XMS_ITS | Encounter Summary ---
Author Organization [facility] Address [address] [place] [address] Care Team Providers Care Business Banking Relationship Manager Name Role Phone Unknown, Provider Primary Care Provider Encounter Details Date Type Department Care Team (Late st Contact Info) Description 09/16/2020 Lab Requisition [facility] Pathology & Laboratory Medicine - [address] [address] Outr Resulting Lab, Provider Social History Tobacco [...] IgE 13 <158 IU/mL 09/18/2020 8:45 EDT [facility] Blood VENOUS BLOOD / Unknown 09/16/2020 13:43 EDT 09/16/2020 20:51 EDT Provider Outr Resulting Lab CHEMISTRY & BLOOD GAS ORDERABLES [facility] [address] [place] [address] * EXTRACTABLE NUCLEAR ANTIGEN PANEL (09/16/2020 13:43 EDT) SSA Antibody 1.2 <20.0 Units 09/17/2020 15:28 EDT [facility] Comment: ? Negative: <20.0 Units ? Weak Positive: 20.0 - 39.9 Units ? Moderate Positive: 40.0 - 80.0 Units ? Strong Positive: >80.0 Units Results were obtained with the [employer]on QUANTA Lite SS-A VAIBHAV. ??SS-A values obtained with different manufacturers' assay methods may not be used interchangeably. ??The magnitude of the reported IgG levels cannot be correlated to an endpoint titer. SSB Antibody 4.9 <20.0 Units 09/17/2020 15:28 [facility] Comment: ? Negative: <20.0 Units ? Weak Positive: 20.0 - 39.9 Units ? Moderate Positive: 40.0 - 80.0 Units ? Strong Positive: >80.0 Units Results were obtained with the [employer] QUANTA Lite SS-B VAIBHAV. ??SS-B values obtained with different manufacturers' assay methods may not be used interchangeably. ??The magnitude of the reported IgG levels cannot be correlated to an endpoint titer. SM (Alcantar) Antibody 3.4 <20.0 Units 09/17/2020 15:28 [facility] Comment: ? Negative: <20.0 Units ? Weak Positive: 20.0 - 39.9 Units ? Moderate Positive: 40.0 - 80.0 Units ? Strong Positive: >80.0 Units Results were obtained with the [employer] QUANTA Lite Sm VAIBHAV. ??Sm values obtained with different manufacturers' assay methods may not be used interchangeably. ??The magnitude of the reported IgG levels cannot be correlated to an endpoint titer. MANAGER OF FINANCIAL Antibody 1.5 <20.0 Units 09/17/2020 15:28 EDT [facility] Comment: ? Negative: <20.0 Units ? Weak Positive: 20.0 - 39.9 Units ? Moderate Positive: 40.0 - 80.0 Units ? Strong Positive: >80.0 Units Results were obtained with the [employer] Quanta Lite MANAGER OF FINANCIAL VAIBHAV. MANAGER OF FINANCIAL values obtained with different sweep molder's assay methods may not be used interchangeaby. ??The magnitude of the reported IgG levels cannot be be correlated to an endpoint titer. A positive result in the Quanta Lite MANAGER OF FINANCIAL VAIBHAV indicates the presence of antibodies reactive with the MANAGER OF FINANCIAL/Sm complex but cannot distinguish between anti-Sm and anti-MANAGER OF FINANCIAL activity. Blood VENOUS BLOOD / Unknown 09/16/2020 13:43 EDT 09/16/2020 20:51 EDT Provider Outr Resulting Lab IMMUNOLOGY A ND SEROLOGY ORDERABLES Performing Organization Address City/State/[facility] Co de Phone Number [facility] [address] [place] [address] * (ABNORMAL) ANTI NUCLEAR AB (KATHRINE), IFA (09/16/2020 13:43 EDT) KATHRINE Interpretation Positive(A) Negative 09/17/2020 15:08 EDT [facility] Comment: For titers greater than [...] Pattern 1 1:160 Speckled 09/17/2020 15:08 EDT [facility] Blood VENOUS BLOOD / Unknown 09/16/2020 13:43 EDT 09/16/2020 20:51 EDT Narrative [facility] - 09/17/2020 15:08 EDT Results were obtained with the [employer]Talon NOVA Lite HEp-2 KATHRINE Kit by indirect immunofluorescence. Provider Outr Resulting Lab IMMUNOLOGY A ND SEROLOGY ORDERABLES [facility] [address] [place] [address] documented in this encounter Visit Diagnoses Not on filedocumented in this encounter Care Teams Business Banking Relationship Manager Relationship Specialty Start Date End Date Unknown, Provider, PCP - General 01/28/10 documented as of this encounter
--- OUTSIDE RECORDS SUMMARY | 2023-10-05 16:58 | XMS_ITS | Encounter Summary ---
Author Organization [facility] Address [address] [place] [address] Care Team Providers Care Tile Mechanic Name Role Phone Unknown, Provider Primary Care Provider Encounter Details Date Type Department Care Team (Late st Contact Info) Description 01/07/2021 Lab Requisition [facility] Pathology & Laboratory Medicine - [address] [address] Outr Resulting Lab, Provider Social History Tobacco [...] Priority Date/Time Associated Diagnosis Comments [facility] Today 01/06/2021 14:00 EDT COVID-19 TESTING Routine 01/06/2021 14:0 0 EDT documented in this encounter Results * COVID-19 TEST [facility] LAB PCR (01/06/2021 14:00 EDT) Swab ENTIRE NASOPHARYNX / Unknown 01/06/2021 14:00 EDT 01/07/2021 17:19 EDT Provider Outr Resulting Lab MICROBIOLOGY - GENERAL ORDERABLES [facility] [address] [place] [address] * COVID-19 TESTING (01/06/2021 14:00 EDT) COVID-19 rt-PCR Result Negative Negative 01/08/2021 12:42 EDT [facility] Comment: This test has [...] was performed using the ric SARS-CoV-2 assay ([employer] on the Ric 6800 System Performing Lab Ric [address] [facility] Lab 01/08/2021 12:42 EDT [facility] Swab 01/06/2021 14:0 0 EDT 01/07/2021 17:19 EDT Provider Outr Resulting Lab MICROBIOLOGY - GENERAL ORDERABLES Performing Organization Address City/State/[facility] Co de Phone Number [facility] [address] [place] [address] documented in this encounter Visit Diagnoses Not on filedocumented in this encounter Care Teams Tile Mechanic Relationship Specialty Start Date End Date Unknown, Provider, PCP - General 01/28/10 documented as of this encounter
--- OUTSIDE RECORDS SUMMARY | 2023-10-05 16:58 | XMS_ITS | Encounter Summary ---
Author Organization [facility] Address [address] [place] [address] Care Team Providers Care Hat Braider Name Role Phone Unknown, Provider Primary Care Provider Encounter Details Date Type Department Care Team (Late st Contact Info) Description 09/06/2020 Lab Requisition [facility] Pathology & Laboratory Medicine - [address] [address] Outr Resulting Lab, Provider Social History Tobacco [...] Outr Resulting Lab MICROBIOLOGY - GENERAL ORDERABLES [facility] [address] [place] [address] * COVID-19 TESTING (09/05/2020 14:00 EDT) COVID-19 rt-PCR Result Negative Negative 09/07/2020 14:05 EDT [facility] Comment: This test [...] developed and its performance characteristics determined by [facility]. It has not been cleared [...] testing. This test is based on the [facility] COVID-19 Emergency Use Authorization (EUA) assay, with minor modification as defined by the FDA Performed on the Business Textero 7 Flex RT-PCR System. Performing Lab [facility] Lab 09/07/2020 14:05 EDT [facility] Swab 09/05/2020 14:0 0 EDT 09/06/2020 16:13 EDT Provider Outr Resulting Lab MICROBIOLOGY - GENERAL ORDERABLES [facility] [address] [place] [address] documented in this encounter Visit Diagnoses Not on filedocumented in this encounter Care Teams Hat Braider Relationship Specialty Start Date End Date Unknown, Provider, PCP - General 01/28/10 documented as of this encounter
--- OUTSIDE RECORDS SUMMARY | 2023-10-05 16:58 | XMS_ITS | Encounter Summary ---
Author Organization Health system Address [address] [place] [address] Care Team Providers Care Anthropometrist Name Role Phone Unavailable Primary Care Provider Unavailabl e Encounter Details Date Type Department Care Team (Late st Contact Info) Description 05/15/1999 Results Only [facility] conversion [address] [place] [address] Channing Brand MD [address] [place] [address] Social History Tobacco Use Types [...] ? LOIDA ROQUE ? Accession #: ? [id number] ? : ? 1970 (Age: 29) ??F [...] MD PATHOLOGY ORDERABLES Performing Organization Address City/State/[facility] Co de Phone Number [facility] [address] [place] [address] documented in this encounter Visit Diagnoses Not on filedocumented in this encounter
--- OUTSIDE RECORDS SUMMARY | 2023-10-05 16:58 | XMS_ITS | Referral Summary ---
Author Organization [facility] Address [address] [place] [address] Care Team Providers Care Oil Burner Repairer Name Role Phone Unknown, Provider Primary [...] C Antibody Negative Negative 05/20/2020 11:15 EDT [facility] Blood VENOUS BLOOD / Unknown 05/17/2020 14:00 EST 05/19/2020 16:37 EDT Provider Outr Resulting Lab CHEMISTRY & BLOOD GAS ORDERABLES [facility] [address] [place] [address] from Last 3 Months or Most Recently Relevant to Health Maintenance Care Teams Oil Burner Repairer Relationship Specialty Start Date End Date Unknown, Provider, PCP - General 01/28/10
--- OUTSIDE RECORDS SUMMARY | 2023-10-05 16:58 | XMS_ITS | Encounter Summary ---
Author Organization [facility] Address [address] [place] [address] Care Team Providers Care Communication Analyst Name Role Phone Unavailable Primary Care Provider Unavailabl e Encounter Details Date Type Department Care Team (Late st Contact Info) Description 01/23/2010 Results Only [facility] - [facility] ([facility] [address] [place], [place] [id number] Kylee Vaca MD [address] [place] [address] Social History Tobacco Use Types [...] ? ROHAN, LOIDA ? Accession #: ? [id number] ? : ? 1970 (Age: 39) ??F ? Collect Date: ? 01/23/2010 ? Location: ? [facility] ? Receive Date: ? 01/24/2010 ? Provider: KYLEE VACA MD ? Copy to: DARWIN LEMON STEAM HAND ? Final Pathologic Diagnosis: ? Skin of [...] MD PATHOLOGY ORDERABLES [facility] [address] [place] [address] documented in this encounter Visit Diagnoses Not on filedocumented in this encounter
--- OUTSIDE RECORDS SUMMARY | 2023-10-05 16:58 | XMS_ITS | Encounter Summary ---
Author Organization [facility] Address [address] [place] [address] Care Team Providers Care Hand Tapper Name Role Phone Unknown, Provider Primary Care Provider Encounter Details Date Type Department Care Team (Late st Contact Info) Description 05/18/2020 Lab Requisition [facility] Pathology & Laboratory Medicine - [address] [address] Outr Resulting Lab, Provider Social History Tobacco [...] C Antibody Negative Negative 05/20/2020 11:15 EDT [facility] Blood VENOUS BLOOD / Unknown 05/17/2020 14:00 EST 05/19/2020 16:37 EDT Provider Outr Resulting Lab CHEMISTRY & BLOOD GAS ORDERABLES [facility] [address] [place] [address] * CELIAC DISEASE PANEL (05/17/2020 14:00 EST) Tissue Transglutaminase Antibody IGA <1.2 <4.0 U/mL 05/20/2020 13:21 EDT [facility] Comment: A negative result may be due to IgA deficiency and does not rule out celiac disease. ? Negative: ??<4.0 U/mL ? Weak Positive: ??4.0 - 10.0 U/mL ? Positive: ??>10.0 U/mL Results were obtained with the GokoA Lite R h-tTG IgA VAIBHAV assay on the [employer]. IgA 283 85 - 499 mg/dL 05/20/2020 13:21 EDT [facility] Celiac Disease Interpretation Negative Serology. Celiac disease unlikely. Approximately 10% of patients with celiac disease are seronegative. Patients who are already adhering to a gluten-free diet may also be seronegative. If celiac disease is highly clinically suspected, referral to gastroenterology for additional evaluation is recommended. 05/20/2020 13:21 EDT [facility] Blood VENOUS BLOOD / Unknown 05/17/2020 14:00 EST 05/19/2020 16:27 EDT Provider Outr Resulting Lab IMMUNOLOGY A ND SEROLOGY ORDERABLES Performing Organization Address City/State/[facility] Co de Phone Number [facility] [address] [place] [address] documented in this encounter Visit Diagnoses Not on filedocumented in this encounter Care Teams Hand Tapper Relationship Specialty Start Date End Date Unknown, Provider, PCP - General 01/28/10 documented as of this encounter
--- OUTSIDE RECORDS SUMMARY | 2023-10-05 16:58 | XMS_ITS | Encounter Summary ---
Author Organization [facility] Address [address] [place] [address] Care Team Providers Care Bull Fiddle Player Name Role Phone Unknown, Provider Primary Care Provider [phone] Encounter Details Date Type Department Care Team (Late st Contact Info) Description 08/28/2019 Lab Requisition [facility] Pathology & Laboratory Medicine - [address] [address] Outr Resulting Lab, Provider Social History Tobacco [...] Outr Resulting Lab MICROBIOLOGY - GENERAL ORDERABLES [facility] [address] [place] [address] * COVID-19 TESTING (08/28/2019 21:50 EDT) COVID-19 rt-PCR Result Negative Negative 08/29/2019 12:31 EDT [facility] Comment: This test has [...] history, and epidemiological information. Performed on the prollieher Fusion instrument Performing Lab [place] [facility] 08/29/2019 12:31 EDT [facility] Swab 08/28/2019 21:5 0 EDT 08/29/2019 8:30 EDT Provider Outr Resulting Lab MICROBIOLOGY - GENERAL ORDERABLES [facility] [address] [place] [address] documented in this encounter Visit Diagnoses Not on filedocumented in this encounter Care Teams Bull Fiddle Player Relationship Specialty Start Date End Date Unknown, Provider, PCP - General 01/28/10 documented as of this encounter
--- OUTSIDE RECORDS SUMMARY | 2023-10-05 16:58 | XMS_ITS | Clinical Summary ---
Author Organization [facility] Address [address] [place] [address] Care Team Providers Care Willower Name Role Phone Unknown, Provider Primary Care Provider [phone] Social History Tobacco Use Types Packs/Day Years [...] C Antibody Negative Negative 05/20/2020 11:15 EDT [facility] Blood VENOUS BLOOD / Unknown 05/17/2020 14:00 EST 05/19/2020 16:37 EDT Provider Outr Resulting Lab CHEMISTRY & BLOOD GAS ORDERABLES [facility] [address] [place] [address] from Last 3 Months or Most Recently Relevant to Health Maintenance Care Teams Willower Relationship Specialty Start Date End Date Unknown, Provider, PCP - General 01/28/10
--- OUTSIDE RECORDS SUMMARY | 2023-10-05 16:58 | XMS_ITS | Encounter Summary ---
Author Organization [facility] Address [address] [place] [address] Care Team Providers Care Flat Hammerer Name Role Phone Unavailable Primary Care Provider Unavailabl e Encounter Details Date Type Department Care Team (Late st Contact Info) Description 01/02/2000 Results Only [facility] conversion [address] [place] [address] Channing Brand MD [address] [place] [address] Social History Tobacco Use Types [...] ? LOIDA ROQUE ? Accession #: ? [id number] : ? 1970 (Age: 29) ??F ?Collect [...] Brand MD PATHOLOGY ORDERABLES [facility] [address] [place] [address] documented in this encounter Visit Diagnoses Not on filedocumented in this encounter
--- OUTSIDE RECORDS SUMMARY | 2023-10-05 16:58 | XMS_ITS | Encounter Summary ---
Author Organization [facility] Address [address] [place] [address] Care Team Providers Care Target Setter Name Role Phone Unknown, Provider Primary Care Provider Encounter Details Date Type Department Care Team (Late st Contact Info) Description 07/27/2022 Lab Requisition [facility] Pathology & Laboratory Medicine - [facility] [address] [place] [address] Outr Resulting Lab, Provider Social History Tobacco [...] Lyme Ab Negative Negative 07/28/2022 10:37 EDT [facility] Blood VENOUS BLOOD / Unknown 07/27/2022 10:39 EDT 07/27/2022 16:45 EDT Provider Outr Resulting Lab IMMUNOLOGY A ND SEROLOGY ORDERABLES [facility] [address] [place] [address] documented in this encounter Visit Diagnoses Not on filedocumented in this encounter Care Teams Target Setter Relationship Specialty Start Date End Date Unknown, ProviderMD PCP - General 01/28/10 documented as of this encounter
--- OUTSIDE RECORDS SUMMARY | 2023-10-05 16:58 | XMS_ITS | Encounter Summary ---
Author Organization [facility] Address [address] [place] [address] Care Team Providers Care Graphic Design Intern Name Role Phone Unavailable Primary Care Provider Unavailabl e Encounter Details Date Type Department Care Team (Late st Contact Info) Description 01/19/2000 Results Only [facility] conversion [address] [place] [address] Channing Brand MD [address] [place] [address] Social History Tobacco Use Types [...] ? LOIDA ROQUE ? Accession #: ? [id number] ? : ? 1970 (Age: 29) ??F [...] reviewed and electronically signed by: Gerald Nino [facility] Report ??Date: 01/22/2000 16:44 By the [...] a discernible squamocolumnar junction. BLOCK RHODES B1,B2 ?Fruit Pitter section of anterior endomyometrium B3 ?Possible myomatous nodule from the anterior half of the specimen B4 ?Fruit Pitter section of posterior endomyometrium B5 ?Fruit Pitter section of posterior endo- and ectocervix B6 ?Anterior endo- and ectocervix (Dr. Garcia)/[facility] End of Report [facility] 01/19/2000 01/20/2000 14: 59 EST Channing Brand MD PATHOLOGY ORDERABLES [facility] [address] [place] [address] documented in this encounter Visit Diagnoses Not on filedocumented in this encounter
--- OUTSIDE RECORDS SUMMARY | 2023-10-05 16:58 | XMS_ITS | Encounter Summary ---
Author Organization [facility] Address [address] [place] [address] Care Team Providers Care Web Manager Name Role Phone Unknown, Provider Primary Care Provider Encounter Details Date Type Department Care Team (Late st Contact Info) Description 05/18/2020 Lab Requisition [facility] Pathology & Laboratory Medicine - [address] [address] Outr Resulting Lab, Provider Social History Tobacco [...] 4th Generation Negative Negative 05/20/2020 11:35 EDT [facility] Comment: If acute HIV-1 infection is suspected in a high risk ??patient, submit plasma specimen for HIV-1 RNA quantitation test. Fourth Generation assay performed on the Siemens Appknoxaur. Blood VENOUS BLOOD / Unknown 05/17/2020 14:00 EST 05/19/2020 16:27 EDT Provider Outr Resulting Lab IMMUNOLOGY A ND SEROLOGY ORDERABLES [facility] [address] [place] [address] documented in this encounter Visit Diagnoses Not on filedocumented in this encounter Care Teams Web Manager Relationship Specialty Start Date End Date Unknown, Provider, PCP - General 01/28/10 documented as of this encounter
--- OUTSIDE RECORDS SUMMARY | 2023-10-05 16:58 | XMS_ITS | Encounter Summary ---
Author Organization [facility] Address [address] [place] [address] Care Team Providers Care Hand Tennis Ball Coverer Name Role Phone Unknown, Provider Primary Care Provider Encounter Details Date Type Department Care Team (Late st Contact Info) Description 07/29/2022 Lab Requisition [facility] Pathology & Laboratory Medicine - [address] [address] Outr Resulting Lab, Provider Social History Tobacco [...] 64 - 147 % 08/05/2022 11:55 EDT [facility] Comment: a.Acquired Protein S [...] HEMATOLOGY & PF4 ORDERABLES Performing Organization Address [facility] Co de Phone Number [facility] [address] [place] [address] * PROTEIN C ACTIVITY (07/29/2022 9:25 EDT) Protein C Clot 132 71 - 199 % 08/05/2022 11:55 EDT [facility] Comment: a. Acquired Protein [...] HEMATOLOGY & PF4 ORDERABLES Performing Organization Address City/[facility]/ZIP Co de Phone Number [facility] [address] [place] [address] documented in this encounter Visit Diagnoses Not on filedocumented in this encounter Care Teams Hand Tennis Ball Coverer Relationship Specialty Start Date End Date Unknown, Provider, PCP - General 01/28/10 documented as of this encounter
--- OUTSIDE RECORDS SUMMARY | 2023-10-05 16:59 | XMS_ITS | Encounter Summary ---
Author Organization Pending Sale [place] [facility] [place] [address] Care Team Providers Care Water Control Supervisor Name Role Phone Polo Pearce Primary Care Provider [phone] Reason for Referral * Diagnostic Test (Routine) - Pending Review Specialty Diagnoses / Procedures Referred By Contac t Referred To Contact Radiology Procedures Non [place] [address] Referral ID Status Reason Start Date Expiration Date Visits Requested Visits Authorized [id number] Pending Review Specialty Service Requested 09/20/2023 03/22/2025 1 1 * Diagnostic Test (Routine) - Pending Review Specialty Diagnoses / Procedures Referred By Contac t Referred To Contact Radiology Procedures [place] [address] Referral ID Status Reason Start Date Expiration Date Visits Requested Visits Authorized [id number] Pending Review Specialty Service Requested 09/20/2023 03/22/2025 1 1 * Diagnostic Test (Routine) - New Request Specialty Diagnoses / Procedures Referred By Contac t Referred To Contact Radiology Procedures [place] [address] Referral ID Status Reason Start Date Expiration Date Visits Requested Visits Authorized [id number] New Request Specialty Service Requested 09/20/2023 03/22/2025 1 1 Encounter Details Date Type Department Care Team (Nadege alan Contact Info) Description 09/20/2023 External Results Administration [facility] [place] [address] Social History Tobacco Use Types Packs/Day Years Used Date Smoking Tobacco: Never Smokeless Tobacco: Never Alcohol Use Standard Drinks/Week Comments Never 0 (1 standard drink = 0.6 oz pur e alcohol) [facility] Utilities Answer Date Recorded In [...] in a snf (including now)? No 06/15/2023 Housing Stability Vital Sign Answer Mitchell e Recorded In the last 12 months, was t here a time when you were not able to pay the mortgage or rent on time? No 08/30/2023 In the past 12 months, how m any times have you moved where you were living? 1 08/30/2023 At any time in the past [facility], were you homeless or living in a snf (including now)? No 08/30/2023 IPV Inpatient Questions [...] Tech [place] [phone] [place] 10/08/2023 9:30 AM EDT Office [place] [address] MD [facility] [place] [address] 10/21/2023 10:30 AM EDT Appointment [place] [address] Mary Reyes APRN [facility] [place] [place] [address] 10/21/2023 11:30 AM EDT Appointment [place] [phone] Mary Reyes APRN [facility] [place] [place] [address] 10/21/2023 12:30 PM EDT Appointment [place] [address] Mary Reyes APRN [facility] [place] [place] [address] 10/21/2023 1:30 PM EDT Appointment [place] [phone] Mary Reyes, [place] [address] 10/21/2023 2:30 PM EDT Appointment [place] [address] Mary Reyes, [place] [address] 10/26/2023 4:00 PM EDT Office Visit Cardiology at [address] [id number] Jaspreet Kinsey MD [facility] [place] [address] 10/28/2023 9:00 AM EDT Office [place] [address] 10/29/2023 10:00 AM EDT Clinical [place] [address] 10/29/2023 10:15 AM EDT Procedure [place] [address] 11/01/2023 5:00 PM EDT Office [place] [phone] Selene Browning, PhD [facility] [place] [address] 11/22/2023 4:40 PM EDT Office Visit Cardiology at [address] [address] Porsha Mcdaniels MD [facility] [place] [address] 12/13/2023 10:00 AM EDT Clinical [place] [phone] [facility] [place] [address] documented as of this encounter Procedures Procedure [...] filedocumented in this encounter Care Teams Water Control Supervisor Relationship Specialty Start Date End Date Polo Pearce PA Sb [address] [place] [address] PCP - General Internal Medicine 06/09/21 documented as of this encounter
--- OUTSIDE RECORDS SUMMARY | 2023-10-05 16:59 | XMS_ITS | Clinical Summary ---
Author Organization [facility] Address [facility] [place] [address] Care Team Providers Care Mobile Practice Lead Name Role Phone Polo Pearce Primary Care Provider [phone] Allergies Active Allergy Reactions Criticality Noted Date [...] spacer Active fluticasone propionate (FLONASE) 50 mcg/actuation [place], Suspension 1 spray by Each Nare route [...] 04/29/2020 Overview (07/26/2023): 05/2021: subacute, presented to [facility] with RUQ pain, weight gain, [...] sarcoid. Anterior scar pattern 06/2023: Admission at [facility] ([facility]). TTE with low-normal EF, though anterior [...] consider referral to the clare Mcdaniels of [facility] expertise IN the meantime, increase torsemide to [...] discharge summary and medication administration record from [facility] to see what was given [...] diagnosis of hypertension 06/07/2021 07/23/2021 Non-ST elevation [place] (NSTEMI) 08/29/2019 03/16/2022 Rhinitis, nonallergic, chronic 06/26/2010 07/30/2022 Encounters Date Type Department Care Team Description 09/20/2023 [place] [address] Vito Pearce MD 09/20/2023 [place] [address] 08/28/2023 8:27 PM EDT - 09/10/2023 5:31 PM EDT Hospital Encounter Heart and Vascular Unit Level 3 Wing B at [place] [phone] Kia Angelo MD Etiwy, Muhammad, MD Ramachandra, [...] PM EDT Ancillary Procedure Radiology Library at [place] [phone] Jaspreet Kinsey MD 08/28/2023 Telephone Cardiology [place] [address] Ciro Lovell MD 08/28/2023 External Results Administration [place] [phone] 08/25/2023 1:05 PM EDT Laboratory Appointment Lab 3L [place] [phone] Heart failure with preserved ejection fraction, unspecified HF chronicity; Chronic kidney disease, unspecified CKD stage; Altered bowel function; Depression, unspecified depression type 08/25/2023 12:55 PM EDT Laboratory Appointment Lab [address] [place] [address] 08/25/2023 10:00 AM EDT Office Visit Gastroenterology at [address] CalvMary mazariegos APRN Altered bowel function; Depression, unspecified depression type; Gastroesophageal reflux disease, unspecified whether esophagitis present; Esophageal dysphagia; Nausea without vomiting; Early satiety 08/25/2023 Travel 08/17/2023 11:53 AM EDT - 08/17/2023 11:59 PM EDT Hospital Encounter Non-[place] [address] Porsha Mcdaniels MD Chest pain, unspecified type Discharge Disposition: Home 08/17/2023 11:52 AM EDT Hospital En[place] [phone] Porsha Mcdaniels MD Chest pain, unspecified type Discharge Disposition: Home 08/17/2023 Travel 08/03/2023 9:30 AM EDT Office Visit Vascular [place] [phone] Judith Butler APRN Mesenteric ischemia 08/03/2023 8:30 AM EDT Tech [place] [phone] Eladio Boyer Mesenteric ischemia 08/03/2023 Travel 07/29/2023 8:00 AM EDT Office Visit Cardiology at [address] [address] Porsha Mcdaniels MD Chest pain, unspecified type 07/29/2023 Travel 07/26/2023 3:20 PM EDT Office Visit Cardiology at [address] [phone] Jaspreet Kinsey MD Heart failure with preserved ejection fraction, unspecified HF chronicity; Paroxysmal atrial fibrillation; SVT (supraventricular tachycardia); Chest pain, unspecified type 07/26/2023 Travel 07/13/2023 Telephone Cardiology at [address] [address] Sydney Gamez RN 07/12/2023 Refill Cardiology at [address] [place] [address] Jaspreet Kinsey MD 07/08/2023 Orders Only [place] [address] Porsha San MD Chronic abdominal pain 07/07/2023 2:05 PM EDT Anesthesia Event [place] [address] Constantine Velez MD 07/07/2023 1:00 PM EDT - 07/07/2023 2:00 PM EDT Surgery [place] [address] Lashonda Villa MD EGD WITH BIOPSY (WRVU 2.39) 06/14/2023 11:01 PM EDT - 07/09/2023 4:44 PM EDT Hospital Encounter Heart and Vascular Unit Level 4 [place] [address] Jaspreet Kinsey MD Ruiz, Xavier [...] drink = 0.6 oz pur e alcohol) [facility] Utilities Answer Date Recorded In the past 12 months has [employer] electric, gas, oil, or water [employer] threatened to shut off services in your [...] in a fdc (including now)? No 06/15/2023 Housing Stability Vital Sign Answer Mitchell e Recorded In the last 12 months, was t here a time when you were not able to pay the mortgage or rent on time? No 08/30/2023 In the past 12 months, how m any times have you moved where you were living? 1 08/30/2023 At any time in the past 12 m [facility], were you homeless or living in a fdc (including now)? No 08/30/2023 IPV Inpatient Questions [...] AM EDT Tech [place] [phone] [place]anning Esc[place] 10/08/2023 9:30 AM EDT Office Visit Vascular [place] [phone] MD [facility] [place] [address] 10/21/2023 10:30 AM EDT Appointment Nuclear Medicine at [place] [phone] Mary Reyes [facility] [place] [address] 10/21/2023 11:30 AM EDT Appointment [place] [phone] Mary Reyes [employer] [facility] [place] [address] 10/21/2023 12:30 PM EDT Appointment [place] [phone] Mary Reyes [facility] [place] [address] 10/21/2023 1:30 PM EDT Appointment [place] [phone] Mary Reyes [facility] [place] [address] 10/21/2023 2:30 PM EDT Appointment [place] [phone] Mary Reyes [facility] [place] [address] 10/26/2023 4:00 PM EDT Office Visit Cardiology at [address] [phone] Jaspreet Kinsey MD [facility] [place] [address] 10/28/2023 9:00 AM EDT Office [place] [address] 10/29/2023 10:00 AM EDT Clinical [place] [address] 10/29/2023 10:15 AM EDT Procedure [place] [address] 11/01/2023 5:00 PM EDT Office Visit [place] [address] Selene Browning, PhD [facility] [place] [address] 11/22/2023 4:40 PM EDT Office Visit Cardiology at [address] [phone] Porsha Mcdaniels MD [facility] [place] [address] 12/13/2023 10:00 AM EDT Clinical Support [place] [phone] [address] [facility] [place] [address] Health Maintenance Due Date Last Done Comments [...] history exists Medical Devices Implanted Type Area Trademark Affixer Device Identifier Shelf Expiration Date Model / Serial / Lot Stent Graft [id number] cm Il Viabahn Vbx ([id number]) ([employer])-4/2 08/2023 Implanted:Qty : 1 on 07/02/[address] MD IMPLANTS Arterial [employer] AN [id number] / / [id number] Description:sma stent placem ent Procedures Procedure Name [...] unspecified CKD stage HC DNA AB DS (LITTLE SHELL TRIBE) Routine 08/25/2023 11:28 AM EDT Heart [...] Routine 07/07/2023 2:25 PM EDT Colonoscopy, Biopsy (44442) 07/07/2023 2:10 PM EDT post prandial pain Upper Gi Endoscopy, Biopsy ([id number]) 07/07/2023 2:10 PM EDT post prandial pain [...] 8:00 AM EDT HEPATIC FUNCTION PANEL Routine 4 3:54 AM EDT DIFFERENTIAL, AUTOMATED Routine 07/06/19 24 3:54 AM EDT HEMOGRAM Routine 07/06/2023 3:54 AM EDT BASIC METABOLIC PANEL (NON-FASTING) Routine 07/06/2023 3:54 AM EDT HC PHOSPHORUS, SERUM Routine 07/06/2023 3:54 AM EDT HC MAGNESIUM, SERUM Routine 07/06/2023 3 :54 AM EDT HC CBC,PLT & AUTO DIFF Routine 3:54 AM EDT HC UNFRACTIONATED HEPARIN (HEP UFH) Timed 07/06/2023 3:54 AM EDT from Last 3 Months Results * Non DH External Radiology Exam (09/20/2023 10:43 PM EDT) Only the most recent of3 resultswithin the time period is included. Anatomical Region Laterality Modality Magnetic Resonan ce Historical Provider IMG MRI ORDERABLE S * Scan Doc: ECG (09/20/2023 4:51 PM EDT) Only the most recent of2 resultswithin the time period is included. Historical Provider MEDIA MGR SCAN EX T ORDR/RSLT * Scan Doc: Telemetry Strips (09/10/2023 8:40 AM EDT) Only the most recent of66 resultswithin the time period is included. Narrative 09/10/2023 8:40 AM EDT Ordered by an unspecified provider. Scanning Provider MEDIA MGR SCAN EXT O RDR/RSLT * (ABNORMAL) Hemogram (09/10/2023 4:17 AM EDT) Only the most recent of18 resultswithin the time period is included. WBC 7.6 4.0 - 9.5 x10(3)/[facility] LABORATORY RBC 4.15 4.00 - 5.21 x10(6)/[facility] LABORATORY Hemoglobin 13.0 11.7 - 15.5 g/dL [facility] Hematocrit 39.2 35.7 - 45.8 % [facility] MCV 94.5(H) 82.6 - 94.4 [facility] LABORATORY MCH 31.3 27.1 - 32.0 pg [facility] MCHC 33.2 31.7 - 35.0 g/dL [facility] Platelets 267 145 - 357 x10(3)/[facility] LABORATORY RDWSD 44.6 37.0 - 46.0 [facility] LAB[facility]ATORY RDWCV 13.1 11.5 - 14.1 % [facility] MPV 10.3 7.6 - 12.9 [facility] LABORATORY nRBC % Auto 0.0 % [facility] nRBC Abs Auto 0.000 0.000 - 0.000 x10(3)/[facility] LABORAT[facility] Blood 09/10/2023 4:17 AM EDT 09/10/2023 4:29 AM EDT Narrative Resulting Agency Comment Spec In Lab Eufemia Copeland MD HEMATOLOGY ORDERAB LES [facility] [place] [address] * Differential, Automated (09/10/2023 4:17 AM EDT) Only the most recent of18 resultswithin the time period is included. Neutrophils % 54.4 % [facility] Neutr Abs (ANC) 4.17 1.70 - 6.10 x10(3)/[facility] LABOR[facility] Lymphocytes % 33.2 % [facility] Lymphocytes Abs 2.5 0.9 - 3.2 x10(3)/[facility] LABOR[facility] Monocytes % 8.4 % [facility] Monocyte Abs 0.6 0.3 - 0.9 x10(3)/[facility] LABORATORY Eosinophils % 3.0 % [facility] Eosinophils Abs 0.2 0.0 - 0.4 x10(3)/[facility] LABOR[facility] Basophils % 0.7 % [facility] Basophils Abs 0.0 0.0 - 0.1 x10(3)/[facility] LABORATORY Immature Gran % 0.30 % [facility] Comment: Immature granulocytes(IG's)percentage and absolute count will include metamyelocytes, myelocytes, and promyelocytes. Blood smears from CBCs yielding IG's will be scanned manually for concordance. If this scan disagrees with the automated IG or if promyelocytes are noted, a manual differential will be performed. Shonda Gran Abs 0.02 0.00 - 0.04 x10(3)/[facility] LABOR[facility] Blood 09/10/2023 4:17 AM EDT 09/10/2023 4:29 AM EDT Narrative Resulting Agency Comment Spec In Lab Eufemia Copeland MD [place] [address] * Magnesium (09/10/2023 4:17 AM EDT) Only the most recent of18 resultswithin the time period is included. Magnesium 0.99 0.69 - 1.07 mmol/L [facility] Blood 09/10/2023 4:17 AM EDT 09/10/2023 4:29 AM EDT Narrative Resulting Agency Comment Spec In Lab Eufemia Copeland MD CHEMISTRY ORDERABL ES [facility] [place] [address] * (ABNORMAL) Basic Metabolic Panel (non-fasting) (09/10/2023 4:17 AM EDT) Only the most recent of21 resultswithin the time period is included. Glucose Lvl 92 65 - 199 mg/dL [facility] Comment:Diabetes: >=200 mg/d L plus symptoms BUN 27(H) 8 - 18 mg/dL [facility] Creatinine 1.39(H) 0.70 - 1.20 mg/dL [facility] Sodium 138 135 - 145 mmol/L [facility] Potassium 4.1 3.5 - 5.0 mmol/L [facility] Comment: Please note: ??Patients with WBC >100,000 may have falsely elevated Potassium levels. ??For accurate Potassium quantification in these patients send serum separator tube (gold top) for subsequent determinations. ??Contact the Clinical Chemistry Laboratory if there are any questions. Chloride 103 98 - 107 mmol/L [facility] CO2 24 22 - 31 mmol/L [facility] Anion Gap 11 5 - 15 mmol/L [facility] Calcium 9.4 8.5 - 10.5 mg/dL [facility] Estimated GFR 45(L) >=60 mL/min/1. 73 m?? [facility] [...] CHEMISTRY ORDERABL ES Performing Organization Address [facility]/ZIP Co de Phone Number [facility] [place] [address] * EKG 12 Lead (09/08/2023 4:01 AM EDT) Only the most recent of13 resultswithin the time period is included. Pathologist [employer] Ventricular rate 59 BPM MUSE SYSTEM Atrial Rate 59 BPM MUSE SYSTEM P-R Interval 192 ms MUSE SYSTEM QRS Duration 92 ms MUSE SYSTEM Q-T Interval 452 ms MUSE SYSTEM QTC Calculated (Bezet) 447 ms MUSE SYSTEM Calculated P [place] 38 degrees MUSE SYSTEM Calculated R [place] 51 degrees MUSE SYSTEM Calculated T [place] -18 degrees MUSE SYSTEM INTERPRETATION Sinus bradycardia Diffuse ST depression, consider subendocardial injury Abnormal ECG When compared with ECG of 03-SEP-2023 06:02, Premature atrial complexes are no longer Present QT has shortened I personally reviewed the tracing and edited the fellows interpretation Confirmed by fellow Vito Pearce ([id number]) on 09/08/2023 7:40:32 AM Confirmed by MD Angelo Danette ([id number]) on 09/08/2023 2:12:57 PM MUSE SYSTEM 09/08/2023 4:01 AM EDT 09/08/2023 2:12 PM EDT Eufemia Copeland MD ECG ORDERABLES Performing Organization Address City/[facility]/ZIP Co de Phone Number MUSE SYSTEM * CT Abdomen & Pelvis w Contrast (09/05/2023 4:25 PM EDT) Pathologist [facility] WORKSTATION ID [id number] RAD Anatomical Region Laterality Modality Abdomen, Pelvis [...] who have questions please contact the health reservoir caretaker that requested your imaging first. ? Electronically signed by: Lalitha Sanders MD, [facility] ([phone]), at 09/06/2023 9:47 AM Narrative 09/06/2023 9:47 [...] patients who have questions please contactthe health reservoir caretaker that requested your imaging first. Samantha Broussard MD IMG CT ORDERABLES * Miscellaneous Lab request (09/05/2023 1:58 AM EDT) [facility] Lab Result Request received in lab. [facility] Blood 09/05/2023 1:58 AM EDT 09/05/2023 2:14 AM EDT Narrative Resulting Agency Comment Spec In Lab Samantha Broussard MD HEMATOLOGY ORDERABLE S [facility] [place] [address] * IgG 4 (09/05/2023 1:58 AM EDT) [facility] IgG 4 47.7 3.9 - 86.4 mg/dL [facility] Blood 09/05/2023 1:58 AM EDT 09/05/2023 2:13 AM EDT Narrative Resulting Agency Comment Spec In Lab Samantha Broussard MD IMMUNOLOGY ORDERABLE S Performing Organization Address City/[facility] Co de Phone Number [facility] [place] [address] * (ABNORMAL) Potassium (09/04/2023 9:13 AM EDT) Only the most recent of2 resultswithin the time period is included. Pathologist [facility] Potassium 3.2(L) 3.5 - 5.0 mmol/L [facility] [...] Broussard MD CHEMISTRY ORDERABLES Performing Organization Address [facility] Co de Phone Number [facility] [place] [address] * (ABNORMAL) Protein Electrophoresis, serum (09/03/2023 2:39 AM EDT) Only the most recent of2 resultswithin the time period is included. Total Prot Elec 7.9 6.1 - 8.0 g/dL [facility] Albumin Elect 4.87 3.20 - 5.20 g/dL [facility] Alpha1-Globul in 0.21 0.10 - 0.30 g/dL [facility] Alpha2-Globul in 1.03(H) 0.40 - 0.90 g/dL [facility] Beta Globulin 0.90 0.50 - 1.00 g/dL [facility] Gamma Globulin 0.88 0.50 - 1.30 g/dL [facility] M1 Band None Detected None Detected [facility] Blood 09/03/2023 2:39 AM EDT 09/03/2023 2:46 AM EDT Narrative Resulting Agency Comment Spec In Lab Lorna Herr MD CHEMISTRY ORDERABLES Performing Organization Address [facility] Co de Phone Number [facility] [place] [address] * Protein Electrophoresis, urine, random (09/02/2023 9:30 PM EDT) Pathologist [facility] U Protein Ran <6 0 - 12 mg/dL [facility] U Albumin See Note [facility] Comment:No protein visible v ia electrophoresis due to a low urine total protein. U Globulin Not Perf [facility] Comment:No protein visible v ia electrophoresis due to a low urine total protein. U M Band Not Perf [facility] Comment:No protein visible v ia electrophoresis due to a low urine total protein. U PEP Comments See Note [facility] Comment: Total Protein concentration too low to fractionate using current electrophoretic technique. No protein visible via electrophoresis due to a low urine total protein. Urine 09/02/2023 9:30 PM EDT 09/02/2023 9:35 PM EDT Narrative Resulting Agency Comment Spec In Lab Lorna Herr MD URINE ORDERABLES Performing Organization Address [facility] de Phone Number [facility] [place] [address] * (ABNORMAL) Troponin (09/02/2023 8:16 PM EDT) Only the most recent of6 resultswithin the time period is included. Pathologist [facility] Troponin-T HS 24(H) <=14 ng/L [facility] [...] troponin value can be found in the [facility] Laboratory Test Catalog Troponin - [facility] Laboratory Test Catalog Reference: Fourth Rogers Definition of Myocardial Infarction. Journal of the [place] [employer] 2018;72:0799-0681 Blood 09/02/2023 8:16 PM EDT 09/02/2023 8:25 PM EDT Narrative Resulting Agency Comment Spec In Lab Lorna Herr MD CHEMISTRY ORDERABLES [facility] [place] [address] * (ABNORMAL) pro-Brain Natriuretic Peptide (09/02/2023 5:05 PM EDT) Only the most recent of2 resultswithin the time period is included. ProBNP 985(H) <=124 pg/mL [facility] Blood 09/02/2023 5:05 PM EDT 09/02/2023 5:17 PM EDT Narrative Resulting Agency Comment Spec In Lab Lorna Herr MD CHEMISTRY ORDERABLES Performing Organization Address City/[facility]/ZIP Co de Phone Number [facility] [place] [address] * Phosphorus (08/31/2023 5:03 PM EDT) Only the most recent of5 resultswithin the time period is included. Phosphorus 3.8 2.5 - 4.5 mg/dL [facility] Blood 08/31/2023 5:03 PM EDT 08/31/2023 5:08 PM EDT Narrative Resulting Agency Comment Spec In Lab Eufemia Copeland MD CHEMISTRY ORDERABL ES Performing Organization Address City/[facility]/ZIP Co de Phone Number [facility] [place] [address] * Heparin (unfractionated) Level (08/30/2023 3:09 AM EDT) Only the most recent of11 resultswithin the time period is included. [facility] Heparin UFH Level 0.46 IU/mL [facility] Comment: Heparin (anti-Xa) [...] Lab Felix Mcmanus MD HEMATOLOGY ORDERABLE S [facility] [place] [address] * ECHO LMTD W CONTRAST W LMTD SPEC DOPP COLOR DOPP (08/29/2023 11:35 AM EDT) [facility] EF 50 HEARTLAB SYSTEM Anatomical Region Laterality Modality Cardiac Other 08/29/2023 9:47 AM EDT Narrative 08/29/2023 12:27 PM EDT [address] [place] [address] ? Echocardiogram Report Name: ROHANLOIDA ? Study Date: 08/29/2023 09:47 AMBP: 100/55 mmHg ? Patient Location: [facility] 0483 A : 1970 ? Height: 163 cm ? Account: [id number] Age: 53 yrs ? Weight: 102 kg Gender: Female ?BSA: 2.1 m2 Ordering Physician: FELIX MCMANUS Referring Physician: SKIP HUMPHREY Performed By: Nalini Alvares RDCS Exam Location: [facility]. Interpretation Summary Left ventricle is normal in size. There is low normal global systolic function, with focal hypokinesis in the anteroseptum as ascribed. Right ventricle is not well visualized. No hemodynamically significant valve disease. Compared to prior studies over the past 6 months, there has been stable global LV systolic function, with oscillating regional function of the anterior wall. Procedure Limited - 17567. Image enhancement Optison was used for left [...] Note Jaspreet Kinsey MD - 08/29/2023 [address] [place] [address] Echocardiogram Report Name: LOIDA ROQUE Study Date: 409:47 AMBP: 100/55 mmHg Patient Location: [address] : 1970 Height: 163 cm Account: [id number] Age: 53 yrs Weight: 102 kg Gender: Female BSA: 2.1 m2 Ordering Physician: FELIX MCMANUS Referring Physician: SKIP HUMPHREY Performed By: Nalini Alvares RDCS Exam Location: [facility]. Interpretation Summary Left ventricle is normal in size. There is low normal global systolicfunction, with focal hypokinesis in the anteroseptum as ascribed. Right ventricle is not well visualized. No hemodynamically significant valve disease. Compared to prior studies over the past 6 months, there has been stableglobal LV systolic function, with oscillating regional function of the anteriorwall. Procedure Limited - 11711. Image enhancement Optison was used for left [...] 4:01 AM EDT) CRP <3.0 <=4.9 mg/L [facility] Blood Venous Draw / Unknown 08/29/2023 4:01 AM EDT 08/29/2023 4:13 AM EDT Narrative Resulting Agency Comment Spec In Lab Eufemia Copeland MD CHEMISTRY ORDERABL ES Performing Organization Address [facility] Co de Phone Number [facility] [place] [address] * Green Tube HOLD (08/29/2023 4:01 AM EDT) Green Hold Sample in lab. [facility] Blood Venous Draw / Unknown 08/29/2023 4:01 AM EDT 08/29/2023 4:09 AM EDT Felix Mcmanus MD CHEMISTRY ORDERABLES Performing Organization Address [facility] de Phone Number [facility] [place] [address] * Sedimentation rate (08/29/2023 4:01 AM EDT) [facility] Sed Rate 11 2 - 39 mm/hr [facility] [...] MD HEMATOLOGY ORDERAB LES Performing Organization Address [facility] Co de Phone Number [facility] [place] [address] * (ABNORMAL) Hepatic Function Panel (08/28/2023 9:07 PM EDT) Only the most recent of4 resultswithin the time period is included. Total Protein 6.6 6.1 - 8.0 g/dL [facility] Albumin 4.2 3.2 - 5.2 g/dL [facility] AST 32(H) 0 - 30 unit/L [facility] ALT 28 0 - 30 unit/L [facility] Alk Phos 52 35 - 105 unit/L [facility] Total Bilirubin 0.6 0.2 - 1.3 mg/dL [facility] Bili, Direct 0.2 0.0 - 0.3 mg/dL [facility] Blood 08/28/2023 9:07 PM EDT 08/28/2023 9:12 PM EDT Narrative Resulting Agency Comment Spec In Lab Felix Mcmanus MD CHEMISTRY ORDERABLES [facility] [place] [address] * Lipid Panel (Reflex Direct LDL) (08/28/2023 9:07 PM EDT) Chol, Total 203 mg/dL [facility] Comment: Desirable: ? <200 mg/dL Borderline High: 200-239 mg/dL Higher: ?>dy=603 mg/dL Triglycerides 146 mg/dL [facility] Comment: Normal: ?<150 mg/dL Borderline High: 150-199 mg/dL High: ?200-499 mg/dL Very High: ? >dx=545 mg/dL HDL 52 mg/dL [facility] Comment: Females: High Risk: <50 mg/dL Males: High Risk: <40 mg/dL LDL Cholesterol 122 mg/dL [facility] Comment: Desirable: ? <100 mg/dL Above Desirable: 100-129 mg/dL Borderline High: 130-159 mg/dL High: ?160-189 mg/dL Very High: ? >sx=860 mg/dL Lipid Interpretation See Note [facility] Comment: It is important to [...] ACC/AHA Guidelines (most recently Ysabel et al. [facility] 12/09/21): For individuals with atherosclerotic cardiovascular disease (ASCVD)or LDL >so=380 mg/dL, use a high-intensity statin (40-80 mg [...] In Lab Felix Mcmanus MD CHEMISTRY ORDERABLES [facility] [place] [address] * Film Library- Storage Only CT Chest (08/28/2023 1:00 PM EDT) Narrative [facility] - 08/28/2023 1:00 PM EDT This exam is auto-finalizing. It's purpose is for storage only. Jaspreet Kinsey MD IMG FILM LIBRARY ORD ERABLES Performing Organization Address [facility] Co de Phone Number [place], [place] * (ABNORMAL) Free Light Chains, Serum (08/25/2023 11:28 AM EDT) Pathologist [facility] [place] Free Light Chain 3.09(H) 0.72 - 2.75 mg/dL [facility] Lambda Free Light Chain 1.65 0.57 - 2.15 mg/dL [facility] [place] Lambda FLC Ratio 1.8727 0.4000 - 2.5800 [facility] Blood 08/25/2023 11:2 8 AM EDT 08/25/2023 11:36 AM EDT Narrative Resulting Agency Comment Spec In Lab Jaspreet Kinsey MD CHEMISTRY ORDERABLES Performing Organization Address [facility] de Phone Number [facility] [place] [address] * Lyme IgG & IgM Antibody (08/25/2023 11:28 AM EDT) Pathologist [facility] Lyme Screening Antibody Negative Negative [facility] Lyme Ab Comment Negative result does not exclude possibility of infection. [facility] Comment: Please note that as of 07/14/2022 that this testing is performed by the Special Chemistry Laboratory at [facility]. This change in testing location is associated with a change in testing methodology. Blood 08/25/2023 11:2 8 AM EDT 08/26/2023 7:26 AM EDT Narrative Resulting Agency Comment Spec In Lab Jaspreet Kinsey MD IMMUNOLOGY ORDERABLE S Performing Organization Address [facility] Co de Phone Number [facility] [place] [address] * Iron and TIBC (08/25/2023 11:28 AM EDT) Pathologist [facility] Iron 113 30 - 150 mcg/dL [facility] TIBC 338 250 - 450 mcg/dL [facility] Iron Saturation 33 20 - 50 % [facility] Blood 08/25/2023 11:2 8 AM EDT 08/25/2023 11:36 AM EDT Narrative Resulting Agency Comment Spec In Lab Jaspreet Kinsey MD CHEMISTRY ORDERABLES Performing Organization Address [facility] de Phone Number [facility] [place] [address] * Tissue transglutaminase, IgA (08/25/2023 11:28 AM EDT) [facility] TTG IgA Ab 0.6 <=10.0 u/ml [facility] Comment: Negative: ??<7 units/mL Indeterminate: 7-10 units/mL Positive: ??>10 units/mL Blood 08/25/2023 11:2 8 AM EDT 08/26/2023 7:26 AM EDT Narrative Resulting Agency Comment Spec In Lab Mary Reyes APRN IMMUNOLOGY ORDERAB LES Performing Organization Address [facility] Co de Phone Number [facility] [place] [address] * Streptococcal Antibody Panel (08/25/2023 11:28 AM EDT) Pathologist [facility] ASO Titer 25 0 - 530 IU/mL [facility] Comment: Test Performed by: [address] [address] Marketing Mgr: Nellie Haney Ph.D.; CLIA# [id number] DNase B Ab 146 0 - 300 unit/mL [facility] Comment: Test Performed by: [facility] [address] [place] [address] Marketing Mgr: Nellie Haney Ph.D.; CLIA# [id number] Blood 08/25/2023 11:2 8 AM EDT 08/25/2023 1:02 PM EDT Narrative Resulting Agency Comment Spec In Lab Jaspreet Kinsey MD IMMUNOLOGY ORDERABLE S Performing Organization Address City/[facility]/ZIP Co de Phone Number [facility] [place] [address] * KATHRINE Antibody Screen (08/25/2023 11:28 AM EDT) Antinuclear Ab Negative Negative [facility] Comment: This antinuclear antibody (KATHRINE) [...] to dsDNA. dsDNA Ab 1.0 <=15.0 IU/mL [facility] Comment: <10 negative 10-15 equivocal [...] performed by the Special Chemistry Laboratory at [facility]. This change in testing location is associated with a change is testing method and reference intervals. Please review the results of this test in association with the posted reference intervals. Blood 08/25/2023 11:2 8 AM EDT 08/26/2023 7:26 AM EDT Narrative Resulting Agency Comment Spec In Lab Jaspreet Kinsey MD IMMUNOLOGY ORDERABLE S Performing Organization Address City/[facility]/ZIP Co de Phone Number [facility] [place] [address] * IgA (08/25/2023 11:28 AM EDT) IgA 372 70 - 400 mg/dL [facility] Blood 08/25/2023 11:2 8 AM EDT 08/25/2023 11:37 AM EDT Narrative Resulting Agency Comment Spec In Lab Mary M Amy CUETO IMMUNOLOGY ORDERAB LES [facility] [place] [address] * IgG (08/25/2023 11:28 AM EDT) IgG 1,114 700 - 1,600 mg/dL [facility] Comment: Pediatric Reference Intervals obtained from the [employer] Reference Interval project. http://www.[employer]op[employer].ca/caliperproject/index.html Blood 08/25/2023 11:2 8 AM EDT 08/25/2023 11:37 AM EDT Narrative Resulting Agency Comment Spec In Lab Mary Reyes APRN IMMUNOLOGY ORDERAB LES Performing Organization Address City/[facility]/ZIP Co de Phone Number [facility] [place] [address] * Ferritin (08/25/2023 11:28 AM EDT) Ferritin 110 11 - 328 ng/mL [facility] Comment: Please note that as of 02/10/2023, the reference intervals for Ferritin have been updated. Blood 08/25/2023 11:2 8 AM EDT 08/25/2023 11:37 AM EDT Narrative Resulting Agency Comment Spec In Lab Jaspreet Kinsey MD CHEMISTRY ORDERABLES Performing Organization Address City/[facility]/ZIP Co de Phone Number [facility] [place] [address] * NM PET CT Cardiac Pharmacologic Stress CT Component (08/17/2023 2:38 PM EDT) WORKSTATION ID [id number] RAD Anatomical Region Laterality Modality Positron Emissio [...] who have questions please contact the health reservoir caretaker that requested your imaging first. ? Electronically signed by: Clay Stanton MD, [facility] ([phone]), at 08/18/2023 2:49 PM Narrative 08/18/2023 2:49 [...] Coronary calcifications. Bilateral ground glass opacities are [id number] Procedure Note Clay Stanton MD - 08/18/2023 EXAMINATION: CO PET CT CARDIAC PHARMACOLOGIC STRESS AND REST, CO PET CTCARDIAC PHARMACOLOGIC STRESS CT COMPONENT CLINICAL [...] patients who have questions please contactthe health reservoir caretaker that requested your imaging first. Electronically signed by: Clay Stanton MD, [facility]([phone]), at 08/18/2023 2:49 PM Porsha Mcfarlane MD IMG PET ORDERABLES * NM PET CT Cardiac Pharmacologic Stress and Rest (08/17/2023 2:38 PM EDT) WORKSTATION ID [id number] [facility] Anatomical Region Laterality Modality Positron Emissio [...] who have questions please contact the health reservoir caretaker that requested your imaging first. ? Electronically signed by: Clay Stanton MD, [facility] ([phone]), at 08/18/2023 2:49 PM Narrative 08/18/2023 2:49 PM EDT EXAMINATION: CO PET CT CARDIAC PHARMACOLOGIC STRESS AND REST, CO PET CT CARDIAC PHARMACOLOGIC STRESS CT COMPONENT [...] Coronary calcifications. Bilateral ground glass opacities are [id number] Procedure Note Clay Stanton MD - 08/18/2023 EXAMINATION: CO PET CT CARDIAC PHARMACOLOGIC STRESS AND REST, CO PET CTCARDIAC PHARMACOLOGIC STRESS CT COMPONENT CLINICAL [...] Coronary calcifications. Bilateral ground glass opacities are [id number] IMPRESSION Moderate-sized scar in the apical septum [...] patients who have questions please contactthe health reservoir caretaker that requested your imaging first. Electronically signed by: Clay Stanton MD, [facility]([phone]), at 08/18/2023 2:49 PM Porsha Mcfarlane MD IMG PET ORDERABLES * Nuclear Pharmacologic Stress Cardiology (PET CT Mobile) (08/17/2023 2:17 PM EDT) Anatomical Region Laterality Modality Other Porsha Mcfarlane MD CARDIAC SERVICES OR DERABLES * Duplex Study Visceral Arteries, Comp (08/03/2023 8:36 AM EDT) VB Text Report Department: Vascular Surgery Lab Patient: [id number] (LOIDA ROQUE) CPT: 15085 Referring Physician: MAMIE MARX ?? Phone: Indications: S/p SMA stenting (07/01) one month f/u, ? patency Findings: Unilateral ? Waveform ? PSV cm/s ??EDV cm/s ??Patent ?? Yuki Visceral Aorta ? 71 ?14 ? Celiac Artery, Proximal ??Scott-Biphasic ? 100 ?22 ? Celiac Artery, Mid ? Scott-Biphasic ?99 ?19 ? Celiac Artery, Distal ?Scott-Biphasic ?94 ?18 ? Sup Mes Artery Proximal [...] within mesenteric artery stents may differ from [place] arteries, with thresholds for diagnosis of significant stenosis likely being somewhat higher in stented arteries than [place].% To date, there is no evidence based consensus of stent velocity criteria. Therefore, the current interpretation is based on [place] artery thresholds. Previous Celiac/Mesenteric Studies: Date ? [...] Marx APRN VASCULAR ORDERABLES Performing Organization Address City/[facility]/ZIP Co de Phone Number [facility] * Specimen to Pathology (07/07/2023 2:55 PM EDT) Only the most recent of3 resultswithin the time period is included. AP Specimen 07/07/2023 2:55 PM EDT 07/07/2023 2:55 PM EDT Narrative [facility] - 07/07/2023 2:55 PM EDT Specimen requisition ordered. ??Separate Pathology report to follow Lloyd Keating MD PATHOLOGY/CYTOLOGY O RDERABLES [facility] [place] [address] * Surgical Pathology Report (07/07/2023 2:25 PM EDT) FINAL DIAGNOSIS (AP) [id number] ? Location: WB; [facility]; A The signing pathologist has (i) [...] Sapna Verified: ??07/19/2023 13:25 ??Pathologist Performed at: ??-[facility] Dept. of Pathology, [place] [address] Oval Or Circular Glass Cutter: Vangie Lu MD, FCAP, ??CLIA Certificate: [id number] SPECIMEN(S) SUBMITTED A - duodenal biopsies rule [...] labeled C1-C2. ??sdy 07/19/2023 1:25 PM EDT [facility] 07/07/2023 2:25 PM EDT Lashonda Villa MD PATHOLOGY/CYTOLOGY O RUMA [facility] [place] [address] * UPPER GI ENDOSCOPY (07/07/2023 1:40 PM EDT) UPPER GI ENDOSCOPY [facility] Endoscopy Procedure Date: 07/07/2023 1:40 PM ? Patient Name: Loida Roque ? Date of : 1970 ? Age: 53 ? Order #: [id number] ? Instrument Name: [id number]- [id number] ? Procedure: ? Upper GI endoscopy Indications: ? Epigastric abdominal pain, Heartburn Providers: ? Lashonda Villa MD, [place] ? Mercedes San [place] Agan Referring MD: ?Lloyd Keating Medicines: ? Monitored Anesthesia [...] [facility]OVATION * COLONOSCOPY (07/07/2023 1:39 PM EDT) [facility] Signature COLONOSCOPY [facility] Endoscopy Procedure Date: 07/07/2023 1:39 PM ? Patient Name: Loida Roque ? N: [id number] ? Date of : 1970 ? Age: 53 ? Order #: [id number] ? Instrument Name: [id number]- [id number] ? Procedure: ? Colonoscopy Indications: ? Abdominal pain, Diarrhea Providers: ? Lashonda Villa, , [place] ? Systrom, Mercedes [place], Bouchra Recinos MD: ? Medicines: ? Monitored Anesthesia Care [...] ? was evaluated using the BBPS ? ([place] Bowel Preparation Scale) ? with scores of: [...] Procedure Code(s): ? --- Professional --- ? 94826, Colonoscopy, flexible; with ? biopsy, single or multiple CPT copyright 2022 [employer]. All rights reserved. The codes documented in this report are preliminary and upon mobile pet groomer review may be revised to meet current [...] GENERAL SURGICAL ORD ERABLES Performing Organization Address City/[facility] Co de Phone Number [facility] * Campylobacter Antigen (07/07/2023 12:10 PM EDT) Campylobacter Ag Immunoassay Negative for Campylobacter Antigen [facility] Stool 07/07/2023 12:1 0 PM EDT 07/07/2023 12:53 PM EDT Narrative Resulting Agency Comment Spec In Lab Pat Knight MD MICROBIOLOGY - GENER AL ORDERABLES Performing Organization Address [facility] Co de Phone Number [facility] [place] [address] * Shiga Toxin Detection (07/07/2023 12:10 PM EDT) Shiga Toxin Assay EIA Negative for Shiga Toxin 1 EIA Negative for Shiga Toxin 2 [facility] Stool 07/07/2023 12:1 0 PM EDT 07/07/2023 12:53 PM EDT Narrative Resulting Agency Comment Spec In Lab Pat Knight MD MICROBIOLOGY - GENER AL ORDERABLES Performing Organization Address [facility] Co de Phone Number [facility] [place] [address] * Stool culture (07/07/2023 12:10 PM EDT) Stool Culture No enteric pathogens isolated [facility] Stool 07/07/2023 12:1 0 PM EDT 07/07/2023 12:53 PM EDT Narrative Resulting Agency Comment Spec In Lab Pat Knight MD MICROBIOLOGY - GENER AL ORDERABLES [facility] [place] [address] * Giardia/Cryptosporidium Antigens ([facility]/CGP/APD/NLH) (07/07/2023 12:38 AM EDT) Giardia Screen Negative Negative [facility] Comment:Examination for othe r intestinal parasites requires foreign travel history. Cryptosporidium Screen Negative Negative [facility] Stool 07/07/2023 12:3 8 AM EDT 07/07/2023 7:56 AM EDT Narrative Resulting Agency Comment Spec In Lab Pat Knight MD MICROBIOLOGY - GENER AL ORDERABLES Performing Organization Address City/[facility]/ZIP Co de Phone Number [facility] [place] [address] from Last 3 Months Advance Directives Documents on File Type Date Recorded Patient Pharmacy Benefits Coordinator Expl anation Advance Directives and Livin g [...] Status decision made by: Patient Care Teams Mobile Practice Lead Relationship Specialty Start Date End Date Polo Pearce PA [address] [place] [address] PCP - General Internal Medicine 06/09/21
--- OUTSIDE RECORDS SUMMARY | 2023-10-05 16:59 | XMS_ITS | Encounter Summary ---
Author Organization [facility] [place] [address] Care Team Providers Care Cell Liner Name Role Phone Polo Pearce Primary Care Provider [phone] Encounter Details Date Type Department Care Team (Late st Contact Info) Description 09/20/2023 [place] [phone] Vito Pearce MD [facility] [place] [address] Social History Tobacco Use Types Packs/Day Years Used Date Smoking Tobacco: Never Smokeless Tobacco: Never Alcohol Use Standard Drinks/Week Comments Never 0 (1 standard drink = 0.6 oz pur e alcohol) [facility] Utilities Answer Date Recorded In the past 12 months has [employer], gas, oil, or water [employer] threatened to shut off services in your [...] a group home (including now)? No 06/15/2023 Housing Stability Vital Sign Answer Mitchell e Recorded In the last 12 months, was t here a time when you were not able to pay the mortgage or rent on time? No 08/30/2023 In the past 12 months, how m any times have you moved where you were living? 1 08/30/2023 At any time in the past 12 m [facility], were you homeless or living in a group home (including now)? No 08/30/2023 DH IPV Inpatient [...] Referring provider: Jasen Montes MD Patient location: [facility] Past medical history: Microvascular disease; nonobstructive [...] oscillating regional function of the anterior wall. [facility] 04/2023 Coronary Angiography: Dominance: Right Left [...] AM EDT Tech [place] [phone] [place] 10/08/2023 9:30 AM EDT Office [place] [phone] MD [facility] [place] [address] 10/21/2023 10:30 AM EDT Appointment [place] [phone] Mary Reyes APRN [facility] [place] [address] 10/21/2023 11:30 AM EDT Appointment [place] [address] Mary Reyes APRN [facility] [place] [address] 10/21/2023 12:30 PM EDT Appointment [place] [address] Mary Reyes [facility] [place] [address] 10/21/2023 1:30 PM EDT Appointment [place] [address] Mary Reyes [facility] [place] [address] 10/21/2023 2:30 PM EDT Appointment [place] [address] [place] [address] 10/26/2023 4:00 PM EDT Office Visit Cardiology at [address] [phone] Jaspreet Kinsey MD [facility] [place] [address] 10/28/2023 9:00 AM EDT Office [place] [address] 10/29/2023 10:00 AM EDT Clinical Support [place] [address] 10/29/2023 10:15 AM EDT Procedure visit [place] [address] 11/01/2023 5:00 PM EDT Office [place] [phone] Selene Browning, PhD [facility] [address] 11/22/2023 4:40 PM EDT Office Visit Cardiology at [place] [phone] Porsha Mcdaniels MD [facility] [place] [address] 12/13/2023 10:00 AM EDT Clinical Support Gastroenterology at [place] [phone] [facility] [place] [address] documented as of this encounter Visit Diagnoses Not on filedocumented in this encounter Care Teams Cell Liner Relationship Specialty Start Date End Date Polo Pearce PA [address] [place] [address] PCP - General Internal Medicine 06/09/21 documented as of this encounter
--- OUTSIDE RECORDS SUMMARY | 2023-10-05 17:00 | XMS_ITS | Encounter Summary ---
Author Organization [facility] [address] Care Team Providers Care Patient Services Assistant Name Role Phone Polo Pearce Primary Care Provider [phone] Encounter Details Date Type Department Care Team (Latest Contact Info) Description 08/03/2023 Travel Social History Tobacco Use Types Packs/Day Years Used Date Smoking Tobacco: Never Smokeless Tobacco: Never Alcohol Use Standard Drinks/Week Comments Never 0 (1 standard drink = 0.6 oz pur e alcohol) [facility] Utilities Answer Date Recorded In the [...] in a assisted (including now)? No 06/15/2023 IPV Inpatient Questions [...] AM EDT Tech [place] [phone] [address] [place] 10/08/2023 9:30 AM EDT Office Visit [place] [phone] MD [facility] [place] [address] 10/21/2023 10:30 AM EDT Appointment [place] [phone] Mary Reyes RN MATERNAL CHILD [facility] [place] [address] 10/21/2023 11:30 AM EDT Appointment [place] [phone] Mary Reyes APRN [facility] [place] [address] 10/21/2023 12:30 PM EDT Appointment [place] [address] Mary Reyes, [place] [address] 10/21/2023 1:30 PM EDT Appointment [place] [address] Mary Reyes [place] [address] 10/21/2023 2:30 PM EDT Appointment [place] [address] [place] [address] 10/26/2023 4:00 PM EDT Office Visit Cardiology at [address] [phone] Jaspreet Kinsey MD [facility] [place] [address] 10/28/2023 9:00 AM EDT Office [place] [address] 10/29/2023 10:00 AM EDT Clinical [place] [address] 10/29/2023 10:15 AM EDT Procedure [place] [address] 11/01/2023 5:00 PM EDT Office Visit [place] [address] Selene Browning, PhD [facility] [place] [address] 11/22/2023 4:40 PM EDT Office Visit Cardiology at [address] [phone] Porsha Mcdaniels MD [facility] [place] [address] 12/13/2023 10:00 AM EDT Clinical Support [place] [address] [facility] [place] [address] documented as of this encounter Visit Diagnoses Not on filedocumented in this encounter Care Teams Patient Services Assistant Relationship Specialty Start Date End Date Polo Pearce PA Sb [address] [place] [address] PCP - General Internal Medicine 06/09/21 documented as of this encounter
--- OUTSIDE RECORDS SUMMARY | 2023-10-05 17:00 | XMS_ITS | Encounter Summary ---
Author Organization [facility] [place] [address] Care Team Providers Care Scorer Helper Name Role Phone Polo Pearce Primary Care Provider [phone] Encounter Details Date Type Department Care Team (Late st Contact Info) Description 08/28/2023 [place] [phone] Social History Tobacco Use Types Packs/Day Years Used Date Smoking Tobacco: Never Smokeless Tobacco: Never Alcohol Use Standard Drinks/Week Comments Never 0 (1 standard drink = 0.6 oz pur e alcohol) [facility] Utilities Answer Date Recorded In [...] in a alf (including now)? No 06/15/2023 Housing Stability Vital Sign Answer [place] e Recorded In the last 12 months, was t here a time when you were not able to pay the mortgage or rent on time? No 08/30/2023 In the past 12 months, how m any times have you moved where you were living? 1 08/30/2023 At any time in the past 12 m [facility], were you homeless or living in a alf (including now)? No 08/30/2023 IPV Inpatient Questions [...] AM EDT Tech [place] [address] Channing Escobedo [place] 10/08/2023 9:30 AM EDT Office [place] [address] MD [facility] DR VASCULAR SURGERY [place] [phone] 10/21/2023 10:30 AM EDT Appointment [place] [address] Mary Reyes APRN [facility] [place] [address] 10/21/2023 11:30 AM EDT Appointment Nuclear Medicine at [place] [phone] Mary Reyes [place] [address] 10/21/2023 12:30 PM EDT Appointment [place] [address] Mary Reyes [place] [address] 10/21/2023 1:30 PM EDT Appointment [place] [address] Mary Reyes [place] [address] 10/21/2023 2:30 PM EDT Appointment [place] [address] Mary Reyes [place] [address] 10/26/2023 4:00 PM EDT Office Visit Cardiology at [address] [phone] Jaspreet Kinsey MD [facility] [place] [address] 10/28/2023 9:00 AM EDT Office [place] [address] 10/29/2023 10:00 AM EDT Clinical [place] [address] 10/29/2023 10:15 AM EDT Procedure [place] [address] 11/01/2023 5:00 PM EDT Office Visit [place] [address] Selene Browning, PhD [facility] [place] [address] 11/22/2023 4:40 PM EDT Office Visit Cardiology at [address] [address] Porsha Mcdaniels MD [facility] [place] [address] 12/13/2023 10:00 AM EDT Clinical Support [place] [address] Lucero Romero, ALVA [facility] [place] [address] documented as of this encounter Procedures Procedure Name Priority Date/Time Associated Diagnosis Comments ECG SCAN Routine 08/28/2023 11:53 AM EDT documented in this encounter Results * Scan Doc: ECG (08/28/2023 11:53 AM EDT) Historical Provider MEDIA MGR SCAN EX T ORDR/RSLT documented in this encounter Visit Diagnoses Not on filedocumented in this encounter Care Teams Scorer Helper Relationship Specialty Start Date End Date Polo Pearce PA Sb [address] [place] [address] PCP - General Internal Medicine 06/09/21 documented as of this encounter
--- OUTSIDE RECORDS SUMMARY | 2023-10-05 17:00 | XMS_ITS | Encounter Summary ---
Author Organization [facility] Address [facility] [address] Care Team Providers Care Director Of Rotc Name Role Phone Polo Pearce Primary Care Provider [phone] Encounter Details Date Type Department Care Team [...] AM EDT Tech [place] [address] Channing Escobedo [place] 10/08/2023 9:30 AM EDT Office [place] [phone] MD [facility] [place] [address] 10/21/2023 10:30 AM EDT Appointment [place] [address] Mary Reyes EXCHANGE CLERK [facility] [place] [address] 10/21/2023 11:30 AM EDT Appointment [place] [address] Mary Reyes APRN [facility] [place] [address] 10/21/2023 12:30 PM EDT Appointment [place] [address] Mary Reyes, [place] [address] 10/21/2023 1:30 PM EDT Appointment [place] [address] Mary [place] [address] 10/21/2023 2:30 PM EDT Appointment [place] [address] [place] [address] 10/26/2023 4:00 PM EDT Office Visit Cardiology at [address] [phone] Jaspreet Kinsey MD [facility] [place] [address] 10/28/2023 9:00 AM EDT Office [place] [address] 10/29/2023 10:00 AM EDT Clinical [place] [address] 10/29/2023 10:15 AM EDT Procedure [place] [address] 11/01/2023 5:00 PM EDT Office [place] [address] Selene Browning, PhD [facility] [place] [address] 11/22/2023 4:40 PM EDT Office Visit Cardiology at [address] [address] Porsha Mcdaniels MD [facility] [place] [address] 12/13/2023 10:00 AM EDT Clinical Support [place] [address] [facility] [place] [address] documented as of this encounter Visit Diagnoses Not on filedocumented in this encounter Care Teams Director Of Rotc Relationship Specialty Start Date End Date Polo Pearce PA Sb MOTT [address] [place] [address] PCP - General Internal Medicine 06/09/21 documented as of this encounter
--- OUTSIDE RECORDS SUMMARY | 2023-10-05 17:00 | XMS_ITS | Encounter Summary ---
Author Organization [facility] [place] [address] Care Team Providers Care Tariff Compiling Clerk Name Role Phone Polo Pearce Primary Care Provider [phone] Reason for Referral * Diagnostic Test (Routine) - New Request Specialty Diagnoses / Procedures Referred By Contjulita t Referred To Contact Cardiology Diagnoses Chest pain, unspecified type Procedures Nuclear Pharmacologic Stress Cardiology (PET CT Mobile) Porsha Mcdaniels MD [facility] [place] [address] [facility] [place] [address] Referral ID Status Reason Start Date Expiration Date Visits Requested Visits Authorized [id number] New Request Specialty Service Requested 07/29/2023 07/28/2024 1 1 Reason for Visit * Diagnostic Test (Routine) - New Request Specialty Diagnoses / Procedures Referred By Contac t Referred To Contact Cardiology Diagnoses Chest pain, unspecified type Procedures Nuclear Pharmacologic Stress Cardiology (PET CT Mobile) Porsha Mcdaniels MD [facility] [place] [address] [facility] [place] [address] Referral ID Status Reason Start Date Expiration Date Visits Requested Visits Authorized [id number] New Request Specialty Service Requested 07/29/2023 07/28/2024 1 1 Encounter Details Date Type Department Care Team (Latest Contact Info) Description 08/17/2023 11:53 AM EDT - 08/17/2023 11:59 PM EDT Hospital Encounter Non-Invasive Cardiology Lab [facility] [place] [address] Porsha Mcdaniels MD [facility] [place] [address] Chest pain, unspecified type Discharge Disposition: Home Social History Tobacco Use Types Packs/Day Years Used Date Smoking Tobacco: Never Smokeless Tobacco: Never Alcohol Use Standard Drinks/Week Comments Never 0 (1 standard drink = 0.6 oz pur e alcohol) [facility] Utilities Answer Date Recorded In the past 12 months has th e [employer], gas, oil, or water [employer] threatened to shut off services in your [...] as needed. fluticasone propionate (FLONASE) 50 mcg/actuation [place], Suspension 1 spray by Each Nare route [...] AM EDT Tech [place] [address] Channing Escobedo [place] 10/08/2023 9:30 AM EDT Office [place] [address] MD [facility] [place] [address] 10/21/2023 10:30 AM EDT Appointment Nuclear Medicine at [place] [phone] Mary Reyes [place] [address] 10/21/2023 11:30 AM EDT Appointment Nuclear Medicine at [address] [place] [address] 10/21/2023 12:30 PM EDT Appointment [place] [address] Mary Reyes [place] [address] 10/21/2023 1:30 PM EDT Appointment [place] [address] Mary Reyes [place] [address] 10/21/2023 2:30 PM EDT Appointment [place] [address] Mary Reyes [place] [address] 10/26/2023 4:00 PM EDT Office Visit Cardiology at [address] [address] Jaspreet Kinsey MD [facility] [place] [address] 10/28/2023 9:00 AM EDT Office Visit [place] [address] 10/29/2023 10:00 AM EDT Clinical Support [place] [address] 10/29/2023 10:15 AM EDT Procedure visit [place] [address] 11/01/2023 5:00 PM EDT Office [place] [address] Selene Browning, PhD [facility] [place] [address] 11/22/2023 4:40 PM EDT Office Visit Cardiology at [address] [phone] Porsha Mcdaniels MD [facility] [place] [address] 12/13/2023 10:00 AM EDT Clinical [place] [address] [facility] [place] [address] documented as of this encounter Procedures Procedure [...] type documented in this encounter Care Teams Tariff Compiling Clerk Relationship Specialty Start Date End Date Polo Pearce PA [address] [facility] 1 [place] [address] PCP - General Internal Medicine 06/09/21 documented as of this encounter
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
--- OUTSIDE RECORDS SUMMARY | 2023-10-05 17:00 | XMS_ITS | Encounter Summary ---
Author Organization [facility] Address [facility] [place] [address] Care Team Providers Care Inventory Control Associate Name Role Phone Polo Pearce Primary Care Provider [phone] Encounter Details Date Type Department Care Team (Late st Contact Info) Description 08/28/2023 1:05 PM EDT Ancillary Procedure [place] [address] Jaspreet Kinsey MD [facility] [place] [address] Social History Tobacco Use Types Packs/Day Years Used Date Smoking Tobacco: Never Smokeless Tobacco: Never Alcohol Use Standard Drinks/Week Comments Never 0 (1 standard drink = 0.6 oz pur e alcohol) [facility] Utilities Answer Date Recorded In the past 12 months has e [employer], gas, oil, or water [employer] threatened to shut off services in your [...] a group home (including now)? No 06/15/2023 IPV Inpatient [...] AM EDT Tech [place] [address] Channing Escobedo [place] 10/08/2023 9:30 AM EDT Office [place] [address] MD [facility] [place] [place] [address] 10/21/2023 10:30 AM EDT Appointment [place] [address] Mary Reyes APRN [facility] [place] [address] 10/21/2023 11:30 AM EDT Appointment [place] [address] Mary Reyes [place] [address] 10/21/2023 12:30 PM EDT Appointment [place] [address] Mary Reyes [place] [address] 10/21/2023 1:30 PM EDT Appointment [place] [address] [place] [address] 10/21/2023 2:30 PM EDT Appointment [place] [address] [place] [address] 10/26/2023 4:00 PM EDT Office Visit Cardiology at [address] [phone] Jaspreet Kinsey MD [facility] [place] [address] 10/28/2023 9:00 AM EDT Office [place] [address] 10/29/2023 10:00 AM EDT Clinical [place] [address] 10/29/2023 10:15 AM EDT Procedure [place] [address] 11/01/2023 5:00 PM EDT Office [place] [address] Selene Browning, PhD [facility] [place] [address] 11/22/2023 4:40 PM EDT Office Visit Cardiology at [address] [address] Porsha Mcdaniels MD [facility] [place] [address] 12/13/2023 10:00 AM EDT Clinical [place] [address] [facility] [place] [address] documented as of this encounter Procedures Procedure Name Priority Date/Time Associated Diagnosis Comments FILM LIBRARY STORAGE ONLY CT CHEST Routine 08/28/2023 1:00 PM EDT documented in this encounter Results * Film Library- Storage Only CT Chest (08/28/2023 1:00 PM EDT) Narrative [facility] - 08/28/2023 1:00 PM EDT This exam is auto-finalizing. It's purpose is for storage only. Jaspreet Kinsey MD IMG FILM LIBRARY ORD ERABLES [place], [place] documented in this encounter Visit Diagnoses Not on filedocumented in this encounter Care Teams Inventory Control Associate Relationship Specialty Start Date End Date Polo Pearce PA Sb MOTT [address] [place] [address] PCP - General Internal Medicine 06/09/21 documented as of this encounter
--- OUTSIDE RECORDS SUMMARY | 2023-10-05 17:00 | XMS_ITS | Encounter Summary ---
Author Organization [facility] Address [facility] [place] [address] Care Team Providers Care Manufacturing Automation Engineer Name Role Phone Polo Pearce Primary Care Provider [phone] Encounter Details Date Type Department Care Team [...] AM EDT Tech Visit [place] [address] Channing Escobedo [place] 10/08/2023 9:30 AM EDT Office [place] [address] MD [facility] [place] [address] 10/21/2023 10:30 AM EDT Appointment [place] [address] Mary Reyes [employer] [facility] [place] [address] 10/21/2023 11:30 AM EDT Appointment [place] [address] Mary Reyes APRN [facility] [place] [address] 10/21/2023 12:30 PM EDT Appointment [place] [address] Mary Reyes, [place] [address] 10/21/2023 1:30 PM EDT Appointment [place] [address] Mary Reyes [employer] [place] [address] 10/21/2023 2:30 PM EDT Appointment [place] [address] [place] [address] 10/26/2023 4:00 PM EDT Office Visit Cardiology at [address] [phone] Jaspreet Kinsey MD [facility] [address] 10/28/2023 9:00 AM EDT Office Visit [place] [address] 10/29/2023 10:00 AM EDT Clinical [place] [address] 10/29/2023 10:15 AM EDT Procedure [place] [address] 11/01/2023 5:00 PM EDT Office [place] [address] Selene Browning, PhD [facility] DR [place] [address] 11/22/2023 4:40 PM EDT Office Visit Cardiology at [address] [address] Porsha Mcdaniels MD [facility] [address] 12/13/2023 10:00 AM EDT Clinical [place] [address] [facility] [place] [address] documented as of this encounter Visit Diagnoses Not on filedocumented in this encounter Care Teams Manufacturing Automation Engineer Relationship Specialty Start Date End Date Polo Pearce PA Sb MOTT [address] [place] [address] PCP - General Internal Medicine 06/09/21 documented as of this encounter
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
--- OUTSIDE RECORDS SUMMARY | 2023-10-05 17:00 | XMS_ITS | Encounter Summary ---
[place] [address] Care Team Providers Care Roundsman Name Role Phone Polo Pearce Primary Care Provider [phone] Encounter Details Date Type Department Care Team (Late st Contact Info) Description 08/03/2023 8:30 AM EDT Tech [place] [address] Eladio Boyer Mesenteric ischemia Social History Tobacco Use Types Packs/Day Years Used Date Smoking Tobacco: Never Smokeless Tobacco: Never Alcohol Use Standard Drinks/Week Comments Never 0 (1 standard drink = 0.6 oz pur e alcohol) [facility] Utilities Answer Date Recorded In the past 12 months has e [employer], gas, oil, or water [employer] threatened to shut off services in your [...] a skilled nursing (including now)? No 06/15/2023 IPV Inpatient Questions [...] AM EDT Tech [place] [phone] [place]anning [place] 10/08/2023 9:30 AM EDT Office [place] [phone] MD [facility] [place] [address] 10/21/2023 10:30 AM EDT Appointment [place] [phone] Mary Reyes APRN [facility] [place] [address] 10/21/2023 11:30 AM EDT Appointment [place] [phone] Mary Reyes APRN [facility] [place] [address] 10/21/2023 12:30 PM EDT Appointment [place] [address] Mary Reyes [facility] [address] 10/21/2023 1:30 PM EDT Appointment [place] [address] Mary Reyes [facility] [place] [address] 10/21/2023 2:30 PM EDT Appointment [place] [address] [place] [address] 10/26/2023 4:00 PM EDT Office Visit Cardiology at [address] [phone] Jaspreet Kinsey MD [facility] [place] [address] 10/28/2023 9:00 AM EDT Office Visit [place] [address] 10/29/2023 10:00 AM EDT Clinical Support [place] [address] 10/29/2023 10:15 AM EDT Procedure visit [place] [address] 11/01/2023 5:00 PM EDT Office [place] [address] Selene Browning, PhD [facility] [place] [address] 11/22/2023 4:40 PM EDT Office Visit Cardiology at [address] [phone] Porsha Mcdaniels MD [facility] CARDIOLOGY [place], [place] [address] 12/13/2023 10:00 AM EDT Clinical [place] [address] Lucero Romero, RD [facility] [place] [address] documented as of this encounter Procedures Procedure Name Priority Date/Time Associated Diagnosis Comments MESENTERIC COMPLETE Routine 08/03/2023 8 :36 AM EDT Mesenteric ischemia documented in this encounter Results * Duplex Study Visceral Arteries, Comp (08/03/2023 8:36 AM EDT) VB Text Report Department: Vascular Surgery Lab Patient: [id number] (LOIDA ROQUE) CPT: [id number] Referring Physician: MAMIE MARX ?? Phone: Indications: S/p SMA stenting (07/01) one month f/u, ? patency Findings: Unilateral ? Waveform ? PSV cm/s ??EDV cm/s ??Patent ?? Dary Visceral Aorta ? 71 ?14 ? Celiac Artery, Proximal ??Andrew-Biphasic ? 100 ?22 ? Celiac Artery, Mid ? Andrew-Biphasic ?99 ?19 ? Celiac Artery, Distal ?Andrew-Biphasic ?94 ?18 ? Sup Mes Artery Proximal [...] within mesenteric artery stents may differ from [place] arteries, with thresholds for diagnosis of significant stenosis likely being somewhat higher in stented arteries than [place].% To date, there is no evidence based consensus of stent velocity criteria. Therefore, the current interpretation is based on [place] artery thresholds. Previous Celiac/Mesenteric Studies: Date ? [...] intestine documented in this encounter Care Teams Roundsman Relationship Specialty Start Date End Date Polo Pearce PA [address] [place] [address] PCP - General Internal Medicine 06/09/21 documented as of this encounter
--- OUTSIDE RECORDS SUMMARY | 2023-10-05 17:00 | XMS_ITS | Encounter Summary ---
[place] [address] Care Team Providers Care Director Biology Name Role Phone Polo Pearce Primary Care Provider [phone] Reason for Referral * Diagnostic Test (Routine) - New Request Specialty Diagnoses / Procedures Referred By Jayant harris Referred To Contact Diagnoses Mesenteric ischemia Procedures Duplex Study Visceral Arteries, Comp Judith Butler APRN [facility] [place] [address] [facility] Vascular Lab [address] [place] [phone] Referral ID Status Reason Start Date Expiration Date Visits Requested Visits Authorized [id number] New Request Specialty Service Requested 08/03/2023 08/02/2024 1 1 Encounter Details Date Type Department Care Team (Late st Contact Info) Description 08/03/2023 9:30 AM EDT Office [place] [address] Judith Butler APRN [facility] [place] [place] [address] Mesenteric ischemia Social History Tobacco Use Types Packs/Day Years Used Date Smoking Tobacco: Never Smokeless Tobacco: Never Alcohol Use Standard Drinks/Week Comments Never 0 (1 standard drink = 0.6 oz pur e alcohol) [facility] Utilities Answer Date Recorded In the [...] in a chcf (including now)? No 06/15/2023 DH IPV Inpatient [...] as needed. fluticasone propionate (FLONASE) 50 mcg/actuation [place], Suspension 1 spray by Each Nare route [...] Text Report Department: Vascular Surgery Lab Patient: [id number] (ROHAN, MELINDA) CPT: [id number] Referring Physician: MAMIE LARRY Phone: Indications: S/p SMA stenting (07/01) one month f/u, ? patency Findings: Unilateral Waveform PSV cm/s EDV cm/s Patent Dary Visceral Aorta 71 14 Celiac Artery, Proximal Caroline-Biphasic 100 22 Celiac Artery, Mid Caroline-Biphasic 99 19 Celiac Artery, Distal Caroline-Biphasic 94 18 Sup Mes Artery Proximal Bi-Triphasic [...] within mesenteric artery stents may differ from [place] arteries, with thresholds for diagnosis of significant stenosis likely being somewhat higher in stented arteries than [place].% To date, there is no evidence based consensus of stent velocity criteria. Therefore, the curre nt interpretation is based on [place] artery thresholds. Previous Celiac/Mesenteric Studies: Date SMA PSV EDV Celiac PSV EDV 427 91 027 70 4860/04/29 289 27 116 20 Current Exam 316 [...] Time Provider Department Center 08/17/2023 1:15 PM [facility] NM PET MOBILE MH Nuc Med [facility] Rad 08/25/2023 10:00 AM Mary Reyes APRN [facility] GASTRO [facility] 10/26/2023 4:00 PM Jaspreet Kinsey MD [facility] Cardio [facility] 11/22/2023 4:40 PM Porsha Mcdaniels MD [facility] CARD [address] [facility] Judith Butler APRN Department of Vascular Surgery documented in this encounter Plan of Treatment Upcoming Encounters Date Type Department Care Team (Late st Contact Info) Description 10/08/2023 8:30 AM EDT Tech [place] [address] Channing Escobedo [place] 10/08/2023 9:30 AM EDT Office Visit [place] [phone] [facility] [place] [address] 10/21/2023 10:30 AM EDT Appointment [place] [address] Mary Reyes MANAGER LIFE [facility] [place] [address] 10/21/2023 11:30 AM EDT Appointment [place] [address] Mary Reyes MANAGER LIFE [facility] [place] [address] 10/21/2023 12:30 PM EDT Appointment [place] [address] Mary Reyes [facility] [address] 10/21/2023 1:30 PM EDT Appointment [place] [address] Mary Reyes [facility] [place] [address] 10/21/2023 2:30 PM EDT Appointment [place] [address] [place] [address] 10/26/2023 4:00 PM EDT Office Visit Cardiology at [address] [phone] Jaspreet Kinsey MD [facility] [place] [address] 10/28/2023 9:00 AM EDT Office [place] [address] 10/29/2023 10:00 AM EDT Clinical [place] [address] 10/29/2023 10:15 AM EDT Procedure [place] [address] 11/01/2023 5:00 PM EDT Office [place] [address] Selene Browning, PhD [facility] [place] [address] 11/22/2023 4:40 PM EDT Office Visit Cardiology at [address] [phone] Porsha Mcdaniels MD [facility] [place] [address] 12/13/2023 10:00 AM EDT Clinical Support [place] [address] [facility] [place] [address] documented as of this encounter Visit Diagnoses Diagnosis Mesenteric ischemia Unspecified vascular insufficiency of intestine documented in this encounter Care Teams Director Biology Relationship Specialty Start Date End Date Polo Pearce PA [address] [place] [address] PCP - General Internal Medicine 06/09/21 documented as of this encounter
--- OUTSIDE RECORDS SUMMARY | 2023-10-05 17:00 | XMS_ITS | Encounter Summary ---
[place] [address] Care Team Providers Care Barrel Rifler Operator Name Role Phone Polo Pearce Primary Care Provider [phone] Reason for Visit * Auth/Cert (Routine) Specialty Diagnoses / Procedures Referred By Jayant harris Referred To Contact Diagnoses NSTEMI (non-ST elevated myocardial infarction) NSTEMI Procedures EMERGENCY [place] [address] [facility] Referral ID Status Reason Start Date Expiration Date Visits Re quested Visits Authorized [id number] 1 1 Encounter Details Date Type Department Care Team (Latest Contact Info) Description 08/25/2023 1:05 PM EDT Laboratory Appointment Lab [address] [place] [phone] Heart failure with preserved ejection fraction, unspecified [...] Recorded In the past 12 months has [employer] electric, gas, oil, or water company threatened [...] AM EDT Tech [place] [address] Channing Escobedo [place] 10/08/2023 9:30 AM EDT Office Visit [place] [address] MD [facility] [place] [address] 10/21/2023 10:30 AM EDT Appointment Nuclear [place] [address] Mary Reyes [facility] [place] [address] 10/21/2023 11:30 AM EDT Appointment Nuclear [place] [address] Mary Reyes [facility] [place] [address] 10/21/2023 12:30 PM EDT Appointment Nuclear [place] [phone] Mary Reyes [facility] [place] [address] 10/21/2023 1:30 PM EDT Appointment Nuclear [place] [address] Mary Reyes [facility] [place] [address] 10/21/2023 2:30 PM EDT Appointment [place] [address] Mary Reyes [facility] [place] [address] 10/26/2023 4:00 PM EDT Office Visit Cardiology at [address] [phone] Jaspreet Kinsey MD [facility] [place] [address] 10/28/2023 9:00 AM EDT Office [place] [address] 10/29/2023 10:00 AM EDT Clinical Support [place] [address] 10/29/2023 10:15 AM EDT Procedure visit [place] [address] 11/01/2023 5:00 PM EDT Office Visit [place] [address] Selene Browning, PhD [facility] [place] [address] 11/22/2023 4:40 PM EDT Office Visit Cardiology at [address] [phone] Porsha Mcdaniels MD [facility] [place] [address] 12/13/2023 10:00 AM EDT Clinical Support [place] [address] [facility] [place] [address] documented as of this encounter Procedures Procedure [...] unspecified HF chronicity HC DNA AB DS (KETCHIKAN) Routine 08/25/2023 11:28 AM EDT Heart failure [...] EDT) IgA 372 70 - 400 mg/dL [facility] Blood 08/25/2023 11:2 8 AM EDT 08/25/2023 11:37 AM EDT Narrative Resulting Agency Comment Spec In Lab Mary Reyes REGULATORY SPECIALIST IMMUNOLOGY ORDERAB LES [facility] [place] [address] * IgG (08/25/2023 11:28 AM EDT) [facility] IgG 1,114 700 - 1,600 mg/dL [facility] Comment: Pediatric Reference Intervals obtained from the Caliper Reference Interval project. http://www.sickSanerads.ca/caliperproject/index.html Blood 08/25/2023 11:2 8 AM EDT 08/25/2023 11:37 AM EDT Narrative Resulting Agency Comment Spec In Lab Mary Gray Amy CUETO IMMUNOLOGY ORDERAB LES Performing Organization Address [facility] Co de Phone Number [facility] [place] [address] * Tissue transglutaminase, IgA (08/25/2023 11:28 AM EDT) [facility] TTG IgA Ab 0.6 <=10.0 u/ml [facility] Comment: Negative: ??<7 units/mL Indeterminate: 7-10 units/mL Positive: ??>10 units/mL Blood 08/25/2023 11:2 8 AM EDT 08/26/2023 7:26 AM EDT Narrative Resulting Agency Comment Spec In Lab Mary Gray Amy CUETO IMMUNOLOGY ORDERAB LES Performing Organization Address City/[facility] Co de Phone Number [facility] [place] [address] * (ABNORMAL) Basic Metabolic Panel (non-fasting) (08/25/2023 11:28 AM EDT) [facility] Glucose Lvl 111 65 - 199 mg/dL [facility] Comment:Diabetes: >=200 mg/d L plus symptoms BUN 29(H) 8 - 18 mg/dL [facility] Creatinine 1.41(H) 0.70 - 1.20 mg/dL [facility] Sodium 140 135 - 145 mmol/L [facility] Potassium 3.6 3.5 - 5.0 mmol/L [facility] Comment: Please note: ??Patients with WBC >100,000 may have falsely elevated Potassium levels. ??For accurate Potassium quantification in these patients send serum separator tube (gold top) for subsequent determinations. ??Contact the Clinical Chemistry Laboratory if there are any questions. Chloride 99 98 - 107 mmol/L [facility] CO2 29 22 - 31 mmol/L [facility] Anion Gap 12 5 - 15 mmol/L [facility] Calcium 10.0 8.5 - 10.5 mg/dL [facility] Estimated GFR 44(L) >=60 mL/min/1. 73 m?? [facility] [...] In Lab Lloyd Keating MD CHEMISTRY ORDERABLES [facility] [place] [address] * KATHRINE Antibody Screen (08/25/2023 11:28 AM EDT) Antinuclear Ab Negative Negative [facility] Comment: This antinuclear antibody (KATHRINE) screen is a qualitative test performed using a fluoroenzyme immunoassay on the Dragon Inside 250 analyzer. This screen is designed to detect antibodies to U1RNP, SS-A/Ro, SS-B/La, centromere B, Scl-70, Dasia-1, and Sm(Alcantar) proteins in serum samples. Antibodies to other nuclear antibodies will not be detected with this assay. This KATHRINE screen is also performed in concert with a quantitative for IgG antibodies to dsDNA. dsDNA Ab 1.0 <=15.0 IU/mL [facility] Comment: <10 negative 10-15 equivocal >15 positive This dsDNA antibody result was generated using a fluoroenzyme immunoassay on the Dragon Inside 250 analyzer. This quantitative test is designed to detect IgG antibodies directed against double stranded DNA in human serum. The presence of antibodies that recognize dsDNA is a highly specific marker for systemic lupus erythematosus. Please note that as of 12/30/2021 that this testing is performed by the Special Chemistry Laboratory at [facility]. This change in testing location is associated with a change is testing method and reference intervals. Please review the results of this test in association with the posted reference intervals. Blood 08/25/2023 11:2 8 AM EDT 08/26/2023 7:26 AM EDT Narrative Resulting Agency Comment Spec In Lab Jaspreet Kinsey MD IMMUNOLOGY ORDERABLE S Performing Organization Address City/State/[facility] Co de Phone Number [facility] [place] [address] * (ABNORMAL) Protein Electrophoresis, serum (08/25/2023 11:28 AM EDT) Total Prot Elec 7.5 6.1 - 8.0 g/dL [facility] Albumin Elect 4.62 3.20 - 5.20 g/dL [facility] Alpha1-Globul in 0.20 0.10 - 0.30 g/dL [facility] Alpha2-Globul in 0.92(H) 0.40 - 0.90 g/dL [facility] Beta Globulin 0.89 0.50 - 1.00 g/dL [facility] Gamma Globulin 0.88 0.50 - 1.30 g/dL [facility] M1 Band None Detected None Detected [facility] Blood 08/25/2023 11:2 8 AM EDT 08/25/2023 11:37 AM EDT Narrative Resulting Agency Comment Spec In Lab Jaspreet Kinsey MD CHEMISTRY ORDERABLES Performing Organization Address City/[facility]/ZIP Co de Phone Number [facility] [place] [address] * (ABNORMAL) Free Light Chains, Serum (08/25/2023 11:28 AM EDT) [place] Free Light Chain 3.09(H) 0.72 - 2.75 mg/dL [facility] Lambda Free Light Chain 1.65 0.57 - 2.15 mg/dL [facility] [place] Lambda FLC Ratio 1.8727 0.4000 - 2.5800 [facility] Blood 08/25/2023 11:2 8 AM EDT 08/25/2023 11:36 AM EDT Narrative Resulting Agency Comment Spec In Lab Jaspreet Kinsey MD CHEMISTRY ORDERABLES Performing Organization Address [facility]/ZIP Co de Phone Number [facility] [place] [address] * Iron and TIBC (08/25/2023 11:28 AM EDT) Iron 113 30 - 150 mcg/dL [facility] TIBC 338 250 - 450 mcg/dL [facility] Iron Saturation 33 20 - 50 % [facility] Blood 08/25/2023 11:2 8 AM EDT 08/25/2023 11:36 AM EDT Narrative Resulting Agency Comment Spec In Lab Jaspreet Kinsey MD CHEMISTRY ORDERABLES Performing Organization Address City/[facility]/ZIP Co de Phone Number [facility] [place] [address] * Ferritin (08/25/2023 11:28 AM EDT) Ferritin 110 11 - 328 ng/mL [facility] Comment: Please note that as of 02/10/2023, the reference intervals for Ferritin have been updated. Blood 08/25/2023 11:2 8 AM EDT 08/25/2023 11:37 AM EDT Narrative Resulting Agency Comment Spec In Lab Jaspreet Kinsey MD CHEMISTRY ORDERABLES Performing Organization Address [facility] Co de Phone Number [facility] [place] [address] * Lyme IgG & IgM Antibody (08/25/2023 11:28 AM EDT) [facility] Lyme Screening Antibody Negative Negative [facility] Lyme Ab Comment Negative result does not exclude possibility of infection. [facility] Comment: Please note that as of 07/14/2022 that this testing is performed by the Special Chemistry Laboratory at [facility]. This change in testing location is associated with a change in testing methodology. Blood 08/25/2023 11:2 8 AM EDT 08/26/2023 7:26 AM EDT Narrative Resulting Agency Comment Spec In Lab Jaspreet Kinsey MD IMMUNOLOGY ORDERABLE S Performing Organization Address City/[facility] Co de Phone Number [facility] [place] [address] * Streptococcal Antibody Panel (08/25/2023 11:28 AM EDT) [facility] ASO Titer 25 0 - 530 IU/mL [facility] Comment: Test Performed by: [facility] [place] [address] Jalousie Installer: Nellie Haney Ph.D.; CLIA# [id number] DNase B Ab 146 0 - 300 unit/mL [facility] Comment: Test Performed by: [facility] [place] [id number] Jalousie Installer: Nellie Haney Ph.D.; CLIA# [id number] Blood 08/25/2023 11:2 8 AM EDT 08/25/2023 1:02 PM EDT Narrative Resulting Agency Comment Spec In Lab Jaspreet Kinsey MD [place] [address] documented in this encounter Visit Diagnoses Diagnosis Heart failure with preserved ejection fraction, unspecified HF chronicity Chronic kidney disease, unspecified CKD stage Altered bowel function Other symptoms involving digestive system Depression, unspecified depression type documented in this encounter Care Teams Barrel Rifler Operator Relationship Specialty Start Date End Date Polo Pearce PA [address] [place] [address] PCP - General Internal Medicine 06/09/21 documented as of this encounter
--- OUTSIDE RECORDS SUMMARY | 2023-10-05 17:00 | XMS_ITS | Encounter Summary ---
Author Organization [facility] [place] [address] Care Team Providers Care Roll Skinner Name Role Phone Polo Pearce Primary Care Provider [phone] Reason for Referral * Diagnostic Test (Routine) - Closed Specialty Diagnoses / Procedures Referred By Contac t Referred To Contact Radiology Diagnoses Chest pain, unspecified type Procedures NM PET CT Cardiac Pharmacologic Stress CT Component Porsha Mcdaniels MD [facility] [place] [address] [place] [address] Referral ID Status Reason Start Date Expiration Date V isits Requested Visits Authorized [id number] Closed Specialty Service Requested 08/03/2023 10/01/2023 1 1 * Diagnostic Test (Routine) - Closed Specialty Diagnoses / Procedures Referred By Contac t Referred To Contact Radiology Diagnoses Chest pain, unspecified type Procedures NM PET CT Cardiac Pharmacologic Stress and Rest Porsha Mcdaniels MD [facility] [place] [address] [place] [address] Referral ID Status Reason Start Date Expiration Date V isits Requested Visits Authorized [id number] Closed Specialty Service Requested 08/03/2023 10/01/2023 1 1 Reason for Visit * Diagnostic Test (Routine) - Closed Specialty Diagnoses / Procedures Referred By Contac t Referred To Contact Radiology Diagnoses Chest pain, unspecified type Procedures NM PET CT Cardiac Pharmacologic Stress and Rest Porsha Mcdaniels MD [facility] [place] [address] [place] [address] Referral ID Status Reason Start Date Expiration Date V isits Requested Visits Authorized [id number] Closed Specialty Service Requested 08/03/2023 10/01/2023 1 1 Encounter Details Date Type Department Care Team (Latest Contact Info) Description 08/17/2023 11:52 AM EDT Hospital Encounter [place] [address] Porsha Mcdaniels MD [facility] [place] [address] Chest pain, unspecified type Discharge Disposition: Home Social History Tobacco Use Types Packs/Day Years Used Date Smoking Tobacco: Never Smokeless Tobacco: Never Alcohol Use Standard Drinks/Week Comments Never 0 (1 standard drink = 0.6 oz pur e alcohol) [facility] Utilities Answer Date Recorded In the past 12 months has [employer] electric, gas, oil, or water company threatened [...] as needed. fluticasone propionate (FLONASE) 50 mcg/actuation Perry, Suspension 1 spray by Each Nare route [...] AM EDT Tech [place] [address] Channing Escobedo [place] 10/08/2023 9:30 AM EDT Office [place] [address] MD [facility] [place] [address] 10/21/2023 10:30 AM EDT Appointment Nuclear Medicine at [place] [phone] Mary Reyes [facility] [place] [address] 10/21/2023 11:30 AM EDT Appointment Nuclear Medicine at [address] [place] [address] 10/21/2023 12:30 PM EDT Appointment [place] [address] Mary Reyes [facility] [place] [address] 10/21/2023 1:30 PM EDT Appointment [place] [address] Mary Reyes [facility] [place] [address] 10/21/2023 2:30 PM EDT Appointment [place] [address] Mary Reyes [facility] [place] [address] 10/26/2023 4:00 PM EDT Office Visit Cardiology at [address] [address] Jaspreet Kinsey MD [facility] [place] [address] 10/28/2023 9:00 AM EDT Office [place] [address] 10/29/2023 10:00 AM EDT Clinical Support [place] [address] 10/29/2023 10:15 AM EDT Procedure [place] [address] 11/01/2023 5:00 PM EDT Office [place] [address] Selene Browning, PhD [facility] [place] [address] 11/22/2023 4:40 PM EDT Office Visit Cardiology at [address] [phone] Porsha Mcdaniels MD [facility] [place] [address] 12/13/2023 10:00 AM EDT Clinical [place] [address] [facility] [place] [address] documented as of this encounter Procedures Procedure [...] Component (08/17/2023 2:38 PM EDT) WORKSTATION ID [id number] RAD Anatomical Region Laterality Modality Positron Emissio [...] have questions please contact the health career coordinator that requested your imaging first. ? [...] Coronary calcifications. Bilateral ground glass opacities are [id number] Procedure Note Clay Stanton MD - 08/18/2023 EXAMINATION: NE PET CT CARDIAC PHARMACOLOGIC STRESS AND REST, NE PET CTCARDIAC PHARMACOLOGIC STRESS CT COMPONENT CLINICAL [...] Coronary calcifications. Bilateral ground glass opacities are [id number] IMPRESSION Moderate-sized scar in the apical septum [...] who have questions please contactthe health career coordinator that requested your imaging first. Porsha Mcfarlane MD IMG PET ORDERABLES * NM PET CT Cardiac Pharmacologic Stress and Rest (08/17/2023 2:38 PM EDT) [employer] WORKSTATION ID [id number] [facility] Anatomical Region Laterality Modality Positron Emissio n [...] have questions please contact the health career coordinator that requested your imaging first. ? Narrative 08/18/2023 2:49 PM EDT EXAMINATION: NE PET CT CARDIAC PHARMACOLOGIC STRESS AND REST, NE PET CT CARDIAC PHARMACOLOGIC STRESS CT COMPONENT [...] Coronary calcifications. Bilateral ground glass opacities are [id number] Procedure Note Clay Stanton MD - 08/18/2023 EXAMINATION: NE PET CT CARDIAC PHARMACOLOGIC STRESS AND REST, NE PET CTCARDIAC PHARMACOLOGIC STRESS CT COMPONENT CLINICAL [...] Coronary calcifications. Bilateral ground glass opacities are [id number] IMPRESSION Moderate-sized scar in the apical septum [...] who have questions please contactthe health career coordinator that requested your imaging first. Porsha Mcfarlane MD IMG PET ORDERABLES documented [...] Arm documented in this encounter Care Teams Roll Skinner Relationship Specialty Start Date End Date Polo Pearce PA [address] [place] [address] PCP - General Internal Medicine 06/09/21 documented as of this encounter
--- OUTSIDE RECORDS SUMMARY | 2023-10-05 17:00 | XMS_ITS | Encounter Summary ---
[place] [address] Care Team Providers Care Commercial Lines Manager Name Role Phone Polo Pearce Primary Care Provider [phone] Reason for Referral * Consultation (Routine) - Authorized Specialty Diagnoses / Procedures Referred By Jayant harris Referred To Contact Cardiology Diagnoses NSTEMI (non-ST elevated myocardial infarction) [place] [address] Cardiac Rehab, [address] [place] [address] Referral ID Status Reason Start Date Expiration Date Visits Requested Visits Authorized [id number] Authorized Consult, Test & Treat Non PCP 09/10/2023 2024 36 36 Reason for Visit * Auth/Cert (Routine) Specialty Diagnoses / Procedures Referred By Jayant harris Referred To Contact Diagnoses NSTEMI (non-ST elevated myocardial infarction) NSTEMI Procedures EMERGENCY MICHEL[place]I [place] [address] [facility] Referral ID Status Reason Start Date Expiration Date Visits Re quested Visits Authorized [id number] 1 1 Encounter Details Date Type Department Care Team (Latest Contact Info) Description 08/28/2023 8:27 PM EDT - 09/10/2023 5:31 PM EDT Hospital Encounter Heart and Vascular Unit Level 3 Wing B at [place] [phone] Kia Angelo MD [facility] [place] [address] [place] [address] Eufemia Copeland MD [facility] [place] [address] [place] [address] Samantha Broussard MD [facility] [place] [address] [place] [address] Paresthesia of hand, bilateral; SVT (supraventricular tachycardia); [...] Recorded In the past 12 months has [employer], gas, oil, or water cliniq.ly threatened to shut off services in your [...] in a usp (including now)? No 06/15/2023 Housing Stability Vital Sign Answer Mitchell e Recorded In the last 12 months, was t here a time when you were not able to pay the mortgage or rent on time? No 08/30/2023 In the past 12 months, how m any times have you moved where you were living? 1 08/30/2023 At any time in the past 12 m [facility], were you homeless or living in a usp (including now)? No 08/30/2023 DH IPV Inpatient [...] Loida Madrigal Patient Age: 53 y.o. Language: Citizen Of [place] Race: White Ethnicity: Not nor Admit date: [...] please contact your inpatient physician through the [facility] Well Point Pumping Supervisor . Issues afterhours and on weekends [...] 09/05/2023 4:25 PM) Result Value WORKSTATION ID [id number] Narrative EXAMINATION: CTA/CT ABDOMEN AND PELVIS W [...] medicine specialist that requested your imaging first. 08/29/23 Interpretation [...] treatment for possible ACS, and transfer to [facility] for further management. Prior [...] Administered Date(s) Administered Moderna Covid-19 Monovalent 12Yr+ (Bailing Machine Operator 100mcg) 03/06/2020, 04/03/2020 Discharge Medications: Your [...] weight gain + increasing shortness of breath. [id number] minutes prior to a dose of torsemide). [...] of 8AM-5PM please call the Cardiology Clinic [phone] to speak with a nurse. All other hours please call the Hospital Well Point Pumping Supervisor [phone] and ask to speak to the cardiovascular hospitalist on-call. Follow up Appointments: Doctor Where Phone # Date Time PCP JOCY Franco [address] [place] [address] Please call to set up a follow up appointment. Cardiology Jaspreet Kinsey MD Cardiology at [place] Arrive at: [facility] [address] [phone] 10/26/2023 4:00 PM General Instructions None Future Appointments and Orders Future Appointments and Orders Future Appointments Provider Department Dept Phone 10/21/2023 10:30 AM [facility] ROOM 1 Nuclear Medicine at [facility] Arrive at: [facility] RAD[facility]Y [phone] Please do not eat or drink anything for at least 6 hours prior to your appointment. 10/21/2023 11:30 AM [facility] ROOM 1 Nuclear Medicine at [facility] Arrive at: [facility] RAD[facility]OLOGY [phone] Please do not eat or drink anything for at least 6 hours prior to your appointment. 10/21/2023 12:30 PM [facility] ROOM 1 Nuclear Medicine at [facility] Arrive at: [facility] RAD[facility]OLOGY [phone] Please do not eat or drink anything for at least 6 hours prior to your appointment. 10/21/2023 1:30 PM [facility] ROOM 1 Nuclear Medicine at [facility] Arrive at: [facility] RADIOLOGY [phone] Please do not eat or drink anything for at least 6 hours prior to your appointment. 10/21/2023 2:30 PM [facility] ROOM 1 Nuclear Medicine at [facility] Arrive at: [facility] RAD[facility]OLOGY [phone] Please do not eat or drink anything for at least 6 hours prior to your appointment. 10/26/2023 4:00 PM Jaspreet Kinsey MD Cardiology at [place] Arrive at: [facility] [address] [phone] 10/28/2023 9:00 AM [facility] 2 Gastroenterology at [facility] Arrive at: [facility] Area 4T [phone] 10/29/2023 10:00 AM [facility] 2 Gastroenterology at [facility] Arrive at: [facility] Area 4T [phone] 10/29/2023 10:15 AM [facility] 2 Gastroenterology at [facility] Arrive at: [facility] Area 4T [phone] 11/22/2023 4:40 PM Porsha Mcdaniels MD Cardiology at [facility] Arrive at: [facility] Area 4A [phone] 12/13/2023 10:[address] Gastroenterology at [facility] Arrive at: [facility] Solicitor Area Discharge References/Attachments None Greater than 30 minutes was spent on this discharge including documentation, [id number] time withthe patient, patient education, service order dispatcher chief, coordination with pharmacy and other patient care. [...] of 8AM-5PM please call the Cardiology Clinic [phone] to speak with a nurse. All other hours please call the Hospital Well Point Pumping Supervisor [phone] and ask to speak to the cardiovascular hospitalist on-call. Follow up Appointments: Doctor Where Phone # Date Time PCP JOCY Franco Dr [address] [place] [address] Please call to set up a follow up appointment. Cardiology Jaspreet Kinsey MD Cardiology at [place] Arrive at: [facility] [address] [phone] 10/26/2023 4:00 PM documented in this encounter [...] as needed. fluticasone propionate (FLONASE) 50 mcg/actuation [place], Suspension 1 spray by Each Nare route [...] Center Cardiovascular Medicine CV HOSPITALIST 1 - [facility] DAILY PROGRESS NOTE Page [phone] to reach a provider 28/09 Admit Date: [...] hest pain, found to have transferred to [facility] for further management of [...] ointment Diet: Daily Healthy Menu Choices/Cardiac diet ([facility]-Diet) DVT Prophylaxis: DOAC Code status: Attempt Cardiopulmonary Resuscitation - Inpatient Disposition: Discharge Location: AM-[facility] Basic Mobility Raw Score: 19 PT: OT: PCP JOCY Franco [phone] Lloyd Keating MD 09/09/2023 * Florencia Ortez [...] Center Cardiovascular Medicine CV HOSPITALIST 1 - [facility] DAILY PROGRESS NOTE Page [phone] to reach a provider 28/09 Admit Date: [...] hest pain, found to have transferred to [facility] for further management of [...] ointment Diet: Daily Healthy Menu Choices/Cardiac diet ([facility]-Diet) DVT Prophylaxis: DOAC Code status: Attempt Cardiopulmonary Resuscitation - Inpatient Disposition: Discharge Location: AM-[facility] Basic Mobility Raw Score: 24 PT: OT: PCP JOCY Franco [phone] Lloyd Keating MD 09/08/2023 * Edith [place] [...] Center Cardiovascular Medicine CV HOSPITALIST 1 - [facility] DAILY PROGRESS NOTE Page [phone] to reach a provider 28/09 Admit Date: [...] hest pain, found to have transferred to [facility] for further management of [...] ointment Diet: Daily Healthy Menu Choices/Cardiac diet ([facility]-Diet) DVT Prophylaxis: DOAC Code status: Attempt Cardiopulmonary Resuscitation - Inpatient Disposition: Discharge Location: AM-[facility] Basic Mobility Raw Score: 24 PT: OT: PCP JOCY Franco [phone] Lloyd Keating MD 09/07/2023 * Dona Hanks [...] Center Cardiovascular Medicine CV HOSPITALIST 1 - [facility] DAILY PROGRESS NOTE Page [phone] to reach a provider 28/09 Admit Date: [...] hest pain, found to have transferred to [facility] for further management of [...] ointment Diet: Daily Healthy Menu Choices/Cardiac diet ([facility]-Diet) DVT Prophylaxis: DOAC Code status: Attempt Cardiopulmonary Resuscitation - Inpatient Disposition: Discharge Location: AM-[facility] Basic Mobility Raw Score: 24 PT: OT: PCP JOCY Franco [phone] Lloyd Keating MD 09/06/2023 * Channing Montanez [...] at OSH with chest pain, transferred to [facility] for further management of [...] Miscellaneous Lab request Result Value Ref Range [facility] Result Request received in lab. Hemogram [...] chest pain, found to have transferred to [facility] for further management of [...] ointment Diet: Daily Healthy Menu Choices/Cardiac diet ([facility]-Diet) DVT Prophlaxis: DOAC Code [...] screened for hospital length of stay and rewriter met patient at bedside. Patient states thattheir [...] Orders Diet Daily Healthy Menu Choices/Cardiac diet ([facility]-Diet) Frequency: Effective Now Number [...] unless consulted in the interim. LORNA Berrios Expense Analyst * Samantha Broussard MD - 09/04/2023 8:35 [...] at OSH with chest pain, transferred to [facility] for further management of [...] found to have elevated NSTEMI, transferred to [facility] for further management of [...] ointment Diet: Daily Healthy Menu Choices/Cardiac diet ([facility]-Diet) DVT Prophlaxis: DOAC Code [...] found to have elevated NSTEMI, transferred to [facility] for further management of [...] ointment Diet: Daily Healthy Menu Choices/Cardiac diet ([facility]-Diet) DVT Prophlaxis: DOAC Code [...] found to have elevated NSTEMI, transferred to [facility] for further management of [...] neurontin Diet: Daily Healthy Menu Choices/Cardiac diet ([facility]-Diet) DVT Prophlaxis: DOAC Code [...] found to have elevated NSTEMI, transferred to [facility] for further management of [...] neurontin Diet: Daily Healthy Menu Choices/Cardiac diet ([facility]-Diet) DVT Prophlaxis: DOAC Code [...] 7:25 AM EDT CV HOSPITALIST 1 - [facility] DAILY PROGRESS NOTE Page [phone] to reach a provider 28/09 Admit Date: [...] found to have elevated NSTEMI, transferred to [facility] for further management of [...] duloxetine Diet: Daily Healthy Menu Choices/Cardiac diet ([facility]-Diet) DVT Prophlaxis: DOAC Code status: Attempt Cardiopulmonary Resuscitation - Inpatient Disposition: Discharge Planning: AM-PAC Basic Mobility Raw Score: 19 PT: OT: PCP JOCY Franco [phone] * Mary Castaneda RCP - 08/31/2023 5:18 [...] 9:11 PM EDT CV HOSPITALIST 1 - [facility] DAILY PROGRESS NOTE Page [phone] to reach a provider 28/09 Admit Date: [...] found to have elevated NSTEMI, transferred to [facility] for further management of [...] duloxetine Diet: Daily Healthy Menu Choices/Cardiac diet ([facility]-Diet) DVT Prophlaxis: DOAC Code status: Attempt Cardiopulmonary Resuscitation - Inpatient Disposition: Discharge Planning: AM-PAC Basic Mobility Raw Score: 19 PT: OT: PCP JOCY Franco [phone] * Neli Alcantar RN - 08/29/2023 3:25 [...] 7:07 AM EDT CV HOSPITALIST 1 - [facility] DAILY PROGRESS NOTE Page [phone] to reach a provider 28/09 Admit Date: [...] 08/28/23 (from the past 24 hour(s)). Assessment: Loiad Madrigal is a 53 y.o. female with [...] found to have elevated NSTEMI, transferred to [facility] for further management of [...] duloxetine Diet: Daily Healthy Menu Choices/Cardiac diet ([facility]-Diet) DVT Prophlaxis: heparin gtt Code status: Attempt Cardiopulmonary Resuscitation - Inpatient Disposition: Discharge Planning: AM-PAC Basic Mobility Raw Score: 19 PT: OT: PCP JOCY Franco [phone] documented in this encounter H&P Notes * [...] treatment for possible ACS, and transfer to [facility] for further management. Prior [...] 3.56) performed by Lashonda Villa MD at [facility] ENDOSCOPY PRO UPPER GI ENDOSCOPY, BIOPSY N/A 07/07/2023 EGD WITH BIOPSY (WRVU 2.39) performed by Lashonda Villa MD at [facility] ENDOSCOPY VS ARTERIOGRAM MESENTERIC VASCULAR SURGERY [...] as needed. 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 Lives in [...] Administered Date(s) Administered Moderna Covid-19 Monovalent 12Yr+ (Bailing Machine Operator 100mcg) 03/06/2020, 04/03/2020 Physical Exam: Last [...] found to have elevated NSTEMI, transferred to [facility] for further management #NSTEMI, [...] respiratory supplies, other (see comments) (BiPAP through [facility]) DME Needed at Discharge: N/A Patient is insured through: Primary Insurance: [place] / Plan[place] / [...] respiratory supplies, other (see comments) (BiPAP through [employer]) DME Needed at Discharge: No Patient is insured through: Primary Insurance: [place] [employer] [place] / Plan[place] / [...] Pt will be receiving Cardiac rehab at [facility] post discharge. D/c plan pending clinical [...] in an outpatient cardiac rehabilitation program at [facility] was discussed. Patient agrees to a [...] Admitted From: Transfer from another hospital Location: [facility] Reason for Hospitalization: overall not feeling [...] were you homeless or living in a usp (including now)?: No In the past 12 months has the electric, gas, oil, or water cliniq.ly threatened to shut off services in your [...] through [facility]) Home [address] [address] Social & Family Supports: All names listed [...] Specific Information: N/A Health/Prescription Coverage: Primary Insurance: [place]ET4 [place] Payor: [employer] [facility] [place] / Plan: [facility] [place] EX[place]ANGE / Product Type: *No Product type* / Secondary Insurance: N/A Prescription Coverage: Yes Preferred Pharmacy: [facility] [place], [place] - [address] [facility] [address] [facility] [address] [facility] - [place], [place] - [address] [facility] [address] [facility] [address] [facility] [address] Status: Patient is a : No Primary Care Provider confirmed: JOCY Franco [phone] Patient/Caregiver Goals of Treatment: home when MR [...] [facility] [place] [address] INPATIENT CARDIOLOGY CONSULT NOTE Reason for Consult: Chest pain HPI: Loida Madrigal is a 53 y.o. obese female, history of non-obstructive CAD ([facility] 04/2023) with suspicion for microvascular dysfunction [...] AM EDT Tech Visit Vascular Lab at [place] [phone] Channing Escobedo [place] 10/08/2023 9:30 AM EDT Office Visit Vascular Surgery at [place] [phone] MD [facility] [place] [address] 10/21/2023 10:30 AM EDT Appointment Nuclear Medicine at [place] [phone] Mary Reyes [facility] [place] [address] 10/21/2023 11:30 AM EDT Appointment Nuclear Medicine at [place] [phone] [place] [address] 10/21/2023 12:30 PM EDT Appointment Nuclear [place] [phone] Mary Reyes [facility] [place] [address] 10/21/2023 1:30 PM EDT Appointment Nuclear [place] [phone] Mary Reyes [facility] [place] [address] 10/21/2023 2:30 PM EDT Appointment Nuclear [place] [phone] Mary Reyes APRN [facility] [place] [address] 10/26/2023 4:00 PM EDT Office Visit Cardiology at [address] [phone] Jaspreet Kinsey MD [facility] [place] [address] 10/28/2023 9:00 AM EDT Office [place] [address] 10/29/2023 10:00 AM EDT Clinical [place] [address] 10/29/2023 10:15 AM EDT Procedure [place] [address] 11/01/2023 5:00 PM EDT Office Visit Gastroenterology at [place] [phone] Selene Browning, PhD [facility] [place] [address] 11/22/2023 4:40 PM EDT Office Visit Cardiology at [address] [phone] Porsha Mcdaniels MD [facility] [place] [address] 12/13/2023 10:00 AM EDT Clinical [place] [phone] [facility] [place] [address] Scheduled Orders Name Type Priority Associated Diagnoses [...] 4:17 AM EDT) Neutrophils % 54.4 % [facility] Neutr Abs (ANC) 4.17 1.70 - 6.10 x10(3)/[facility] Lymphocytes % 33.2 % [facility] Lymphocytes Abs 2.5 0.9 - 3.2 x10(3)/[facility] Monocytes % 8.4 % [facility] Monocyte Abs 0.6 0.3 - 0.9 x10(3)/[facility] Eosinophils % 3.0 % [facility] Eosinophils Abs 0.2 0.0 - 0.4 x10(3)/[facility] Basophils % 0.7 % [facility] Basophils Abs 0.0 0.0 - 0.1 x10(3)/[facility] Immature Gran % 0.30 % [facility] Comment: Immature granulocytes(IG's)percentage and absolute count will include metamyelocytes, myelocytes, and promyelocytes. Blood smears from CBCs yielding IG's will be scanned manually for concordance. If this scan disagrees with the automated IG or if promyelocytes are noted, a manual differential will be performed. Shonda Gran Abs 0.02 0.00 - 0.04 x10(3)/[facility] Blood 09/10/2023 4:17 AM EDT 09/10/2023 4:29 AM EDT Narrative Resulting Agency Comment Spec In Lab Eufemia Copeland MD HEMATOLOGY ORDERAB LES [facility] [place] [address] * (ABNORMAL) Hemogram (09/10/2023 4:17 AM EDT) WBC 7.6 4.0 - 9.5 x10(3)/[facility] RBC 4.15 4.00 - 5.21 x10(6)/[facility] Hemoglobin 13.0 11.7 - 15.5 g/dL [facility] Hematocrit 39.2 35.7 - 45.8 % [facility] MCV 94.5(H) 82.6 - 94.4 fL [facility] MCH 31.3 27.1 - 32.0 pg [facility] MCHC 33.2 31.7 - 35.0 g/dL [facility] Platelets 267 145 - 357 x10(3)/[facility] RDWSD 44.6 37.0 - 46.0 fL [facility] RDWCV 13.1 11.5 - 14.1 % [facility] MPV 10.3 7.6 - 12.9 fL [facility] nRBC % Auto 0.0 % [facility] nRBC Abs Auto 0.000 0.000 - 0.000 x10(3)/[facility] Blood 09/10/2023 4:17 AM EDT 09/10/2023 4:29 AM EDT Narrative Resulting Agency Comment Spec In Lab Eufemia Copeland MD HEMATOLOGY ORDERAB LES [facility] [place] [address] * (ABNORMAL) Basic Metabolic Panel (non-fasting) (09/10/2023 4:17 AM EDT) Glucose Lvl 92 65 - 199 mg/dL [facility] Comment:Diabetes: >=200 mg/d L plus symptoms BUN 27(H) 8 - 18 mg/dL [facility] Creatinine 1.39(H) 0.70 - 1.20 mg/dL [facility] [...] ES Performing Organization Address City/[facility]/ZIP Co de Phone Number [facility] [place] [address] * Magnesium (09/10/2023 4:17 AM EDT) Magnesium 0.99 0.69 - 1.07 mmol/L [facility] Blood 09/10/2023 4:17 AM EDT 09/10/2023 4:29 AM EDT Narrative Resulting Agency Comment Spec In Lab Eufemia Copeland MD CHEMISTRY ORDERABL ES Performing Organization Address City/[facility] Co de Phone Number [facility] [place] [address] * Differential, Automated (09/09/2023 5:10 AM EDT) Neutrophils % 54.1 % [facility] Neutr Abs (ANC) 4.00 1.70 - 6.10 x10(3)/[facility] Lymphocytes % 31.7 % [facility] Lymphocytes Abs 2.3 0.9 - 3.2 x10(3)/[facility] Monocytes % 9.5 % [facility] Monocyte Abs 0.7 0.3 - 0.9 x10(3)/[facility] Eosinophils % 3.5 % [facility] Eosinophils Abs 0.3 0.0 - 0.4 x10(3)/[facility] Basophils % 0.8 % [facility] Basophils Abs 0.1 0.0 - 0.1 x10(3)/[facility] Immature Gran % 0.40 % [facility] Comment: Immature granulocytes(IG's)percentage and absolute count will include metamyelocytes, myelocytes, and promyelocytes. Blood smears from CBCs yielding IG's will be scanned manually for concordance. If this scan disagrees with the automated IG or if promyelocytes are noted, a manual differential will be performed. Shonda Gran Abs 0.03 0.00 - 0.04 x10(3)/[facility] Blood 09/09/2023 5:10 AM EDT 09/09/2023 5:19 AM EDT Narrative Resulting Agency Comment Spec In Lab Eufemia Copeland MD HEMATOLOGY ORDERAB LES [facility] [place] [address] * (ABNORMAL) Hemogram (09/09/2023 5:10 AM EDT) WBC 7.4 4.0 - 9.5 x10(3)/[facility] RBC 4.09 4.00 - 5.21 x10(6)/[facility] Hemoglobin 13.0 11.7 - 15.5 g/dL [facility] Hematocrit 39.2 35.7 - 45.8 % [facility] MCV 95.8(H) 82.6 - 94.4 fL [facility] MCH 31.8 27.1 - 32.0 pg [facility] MCHC 33.2 31.7 - 35.0 g/dL [facility] Platelets 267 145 - 357 x10(3)/[facility] RDWSD 45.3 37.0 - 46.0 [facility]ORY RDWCV 12.9 11.5 - 14.1 % [facility] MPV 9.9 7.6 - 12.9 fL [facility] nRBC % Auto 0.0 % [facility] nRBC Abs Auto 0.000 0.000 - 0.000 x10(3)/mcL [facility] Blood 09/09/2023 5:10 AM EDT 09/09/2023 5:19 AM EDT Narrative Resulting Agency Comment Spec In Lab Eufemia Copeland MD HEMATOLOGY ORDERAB LES [facility] [place] [address] * (ABNORMAL) Basic Metabolic Panel (non-fasting) (09/09/2023 5:10 AM EDT) Glucose Lvl 97 65 - 199 mg/dL [facility] Comment:Diabetes: >=200 mg/d L plus symptoms BUN 22(H) 8 - 18 mg/dL [facility] Creatinine 1.36(H) 0.70 - 1.20 mg/dL [facility] [...] CHEMISTRY ORDERABL ES Performing Organization Address [facility] Co de Phone Number [facility] [place] [address] * Magnesium (09/09/2023 5:10 AM EDT) Magnesium 0.97 0.69 - 1.07 mmol/L [facility] Blood 09/09/2023 5:10 AM EDT 09/09/2023 5:19 AM EDT Narrative Resulting Agency Comment Spec In Lab Eufemia Copeland MD CHEMISTRY ORDERABL ES Performing Organization Address [facility] Co de Phone Number [facility] [place] [address] * EKG 12 Lead (09/08/2023 4:01 AM EDT) Ventricular rate 59 BPM MUSE SYSTEM Atrial Rate 59 BPM MUSE SYSTEM P-R Interval 192 ms MUSE SYSTEM QRS Duration 92 ms MUSE SYSTEM Q-T Interval 452 ms MUSE SYSTEM QTC Calculated (Bezet) 447 ms MUSE SYSTEM Calculated P [place] 38 degrees MUSE SYSTEM Calculated R [place] 51 degrees MUSE SYSTEM Calculated T [place] -18 degrees MUSE SYSTEM INTERPRETATION Sinus bradycardia Diffuse ST depression, consider subendocardial injury Abnormal ECG When compared with ECG of 03-SEP-2023 06:02, Premature atrial complexes are no longer Present QT has shortened I personally reviewed the tracing and edited the fellows interpretation Confirmed by fellow Vito Pearce ([id number]) on 09/08/2023 7:40:32 AM Confirmed by MD Angelo Danette ([id number]) on 09/08/2023 2:12:57 PM MUSE SYSTEM 09/08/2023 4:01 AM EDT 09/08/2023 2:12 PM EDT Eufemia Copeland MD ECG ORDERABLES MUSE SYSTEM * Differential, Automated (09/08/2023 2:22 AM EDT) Neutrophils % 55.2 % [facility] Neutr Abs (ANC) 4.74 1.70 - 6.10 x10(3)/[facility] Lymphocytes % 30.8 % [facility] Lymphocytes Abs 2.6 0.9 - 3.2 x10(3)/[facility] Monocytes % 9.5 % [facility] Monocyte Abs 0.8 0.3 - 0.9 x10(3)/[facility] Eosinophils % 3.6 % [facility] Eosinophils Abs 0.3 0.0 - 0.4 x10(3)/[facility] Basophils % 0.5 % [facility] Basophils Abs 0.0 0.0 - 0.1 x10(3)/[facility] Immature Gran % 0.40 % [facility] Comment: Immature granulocytes(IG's)percentage and absolute count will include metamyelocytes, myelocytes, and promyelocytes. Blood smears from CBCs yielding IG's will be scanned manually for concordance. If this scan disagrees with the automated IG or if promyelocytes are noted, a manual differential will be performed. Shonda Gran Abs 0.03 0.00 - 0.04 x10(3)/[facility] Blood 09/08/2023 2:22 AM EDT 09/08/2023 2:37 AM EDT Narrative Resulting Agency Comment Spec In Lab Eufemia Copeland MD HEMATOLOGY ORDERAB LES [facility] [place] [address] * (ABNORMAL) Hemogram (09/08/2023 2:22 AM EDT) [facility] WBC 8.6 4.0 - 9.5 x10(3)/[facility] RBC 3.98(L) 4.00 - 5.21 x10(6)/[facility] Hemoglobin 12.8 11.7 - 15.5 g/dL [facility] Hematocrit 37.4 35.7 - 45.8 % [facility] MCV 94.0 82.6 - 94.4 fL [facility] MCH 32.2(H) 27.1 - 32.0 pg [facility] MCHC 34.2 31.7 - 35.0 g/dL [facility] Platelets 274 145 - 357 x10(3)/[facility] RDWSD 44.5 37.0 - 46.0 [facility] RDWCV 12.9 11.5 - 14.1 % [facility] MPV 10.4 7.6 - 12.9 [facility] nRBC % Auto 0.0 % [facility] nRBC Abs Auto 0.000 0.000 - 0.000 x10(3)/[facility] Blood 09/08/2023 2:22 AM EDT 09/08/2023 2:37 AM EDT Narrative Resulting Agency Comment Spec In Lab Eufemia Copeland MD HEMATOLOGY ORDERAB LES [facility] [place] [address] * (ABNORMAL) Basic Metabolic Panel (non-fasting) (09/08/2023 2:22 AM EDT) [facility] Glucose Lvl 98 65 - 199 mg/dL [facility] ORDERABL ES [facility] [place] [address] * Magnesium (09/08/2023 2:22 AM EDT) Magnesium 0.91 0.69 - 1.07 mmol/L [facility] Blood 09/08/2023 2:22 AM EDT 09/08/2023 2:37 AM EDT Narrative Resulting Agency Comment Spec In Lab Eufemia Copeland MD CHEMISTRY ORDERABL ES [facility] [place] [address] * Differential, Automated (09/07/2023 2:56 AM EDT) Neutrophils % 52.3 % [facility] Neutr Abs (ANC) 3.74 1.70 - 6.10 x10(3)/[facility] Lymphocytes % 33.8 % [facility] Lymphocytes Abs 2.4 0.9 - 3.2 x10(3)/[facility] Monocytes % 9.4 % [facility] Monocyte Abs 0.7 0.3 - 0.9 x10(3)/[facility] Eosinophils % 3.6 % [facility] Eosinophils Abs 0.3 0.0 - 0.4 x10(3)/[facility] Basophils % 0.6 % [facility] Basophils Abs 0.0 0.0 - 0.1 x10(3)/[facility] Immature Gran % 0.30 % [facility] Comment: Immature granulocytes(IG's)percentage and absolute count will include metamyelocytes, myelocytes, and promyelocytes. Blood smears from CBCs yielding IG's will be scanned manually for concordance. If this scan disagrees with the automated IG or if promyelocytes are noted, a manual differential will be performed. Shonda Gran Abs 0.02 0.00 - 0.04 x10(3)/[facility] Blood 09/07/2023 2:56 AM EDT 09/07/2023 3:31 AM EDT Narrative Resulting Agency Comment Spec In Lab Eufemia Copeland MD HEMATOLOGY ORDERAB LES [facility] [place] [address] * (ABNORMAL) Hemogram (09/07/2023 2:56 AM EDT) [facility] WBC 7.2 4.0 - 9.5 x10(3)/[facility] RBC 4.16 4.00 - 5.21 x10(6)/[facility] Hemoglobin 13.1 11.7 - 15.5 g/dL [facility] Hematocrit 39.7 35.7 - 45.8 % [facility] MCV 95.4(H) 82.6 - 94.4 [facility] MCH 31.5 27.1 - 32.0 pg [facility] MCHC 33.0 31.7 - 35.0 g/dL [facility] Platelets 277 145 - 357 x10(3)/[facility] RDWSD 45.4 37.0 - 46.0 [facility] RDWCV 12.9 11.5 - 14.1 % [facility] MPV 10.6 7.6 - 12.9 [facility] nRBC % Auto 0.0 % [facility] nRBC Abs Auto 0.000 0.000 - 0.000 x10(3)/[facility] Blood 09/07/2023 2:56 AM EDT 09/07/2023 3:31 AM EDT Narrative Resulting Agency Comment Spec In Lab Eufemia Copeland MD HEMATOLOGY ORDERAB LES [facility] [place] [address] * (ABNORMAL) Basic Metabolic Panel (non-fasting) (09/07/2023 2:56 AM EDT) [facility] Glucose Lvl 97 65 - 199 mg/dL [facility] ORDERABL ES [facility] [place] [address] * Magnesium (09/07/2023 2:56 AM EDT) Magnesium 0.96 0.69 - 1.07 mmol/L [facility] Blood 09/07/2023 2:56 AM EDT 09/07/2023 3:31 AM EDT Narrative Resulting Agency Comment Spec In Lab Eufemia Copeland MD CHEMISTRY ORDERABL ES [facility] [place] [address] * Differential, Automated (09/06/2023 2:44 AM EDT) Pathologist [facility] Neutrophils % 53.7 % [facility] Neutr Abs (ANC) 4.01 1.70 - 6.10 x10(3)/[facility] Lymphocytes % 32.0 % [facility] Lymphocytes Abs 2.4 0.9 - 3.2 x10(3)/[facility] Monocytes % 10.0 % [facility] Monocyte Abs 0.8 0.3 - 0.9 x10(3)/[facility] Eosinophils % 3.2 % [facility] Eosinophils Abs 0.2 0.0 - 0.4 x10(3)/[facility] Basophils % 0.7 % [facility] Basophils Abs 0.0 0.0 - 0.1 x10(3)/[facility] Immature Gran % 0.40 % [facility] Comment: Immature granulocytes(IG's)percentage and absolute count will include metamyelocytes, myelocytes, and promyelocytes. Blood smears from CBCs yielding IG's will be scanned manually for concordance. If this scan disagrees with the automated IG or if promyelocytes are noted, a manual differential will be performed. Shonda Gran Abs 0.03 0.00 - 0.04 x10(3)/[facility] Blood 09/06/2023 2:44 AM EDT 09/06/2023 2:58 AM EDT Narrative Resulting Agency Comment Spec In Lab Eufemia Copeland MD HEMATOLOGY ORDERAB LES [facility] [place] [address] * Hemogram (09/06/2023 2:44 AM EDT) WBC 7.5 4.0 - 9.5 x10(3)/[facility] RBC 4.26 4.00 - 5.21 x10(6)/[facility] Hemoglobin 13.6 11.7 - 15.5 g/dL [facility] Hematocrit 40.2 35.7 - 45.8 % [facility] MCV 94.4 82.6 - 94.4 [facility] MCH 31.9 27.1 - 32.0 pg [facility] MCHC 33.8 31.7 - 35.0 g/dL [facility] Platelets 274 145 - 357 x10(3)/[facility] RDWSD 44.3 37.0 - 46.0 [facility] RDWCV 12.9 11.5 - 14.1 % [facility] MPV 10.2 7.6 - 12.9 [facility] nRBC % Auto 0.0 % [facility] nRBC Abs Auto 0.000 0.000 - 0.000 x10(3)/[facility] Blood 09/06/2023 2:44 AM EDT 09/06/2023 2:58 AM EDT Narrative Resulting Agency Comment Spec In Lab Eufemia Copeland MD HEMATOLOGY ORDERAB LES [facility] [place] [address] * Basic Metabolic Panel (non-fasting) (09/06/2023 2:44 [...] ORDERABL ES [facility] [place] [address] * Magnesium (09/06/2023 2:44 AM EDT) Magnesium 0.95 0.69 - 1.07 mmol/L [facility] Blood 09/06/2023 2:44 AM EDT 09/06/2023 2:58 AM EDT Narrative Resulting Agency Comment Spec In Lab Eufemia Copeland MD CHEMISTRY ORDERABL ES [facility] [place] [address] * CT Abdomen & Pelvis w Contrast (09/05/2023 4:25 PM EDT) [facility] [employer] WORKSTATION ID [id number] RAD Anatomical Region Laterality Modality Abdomen, Pelvis [...] medicine specialist that requested your imaging first. Samantha Broussard MD IMG CT ORDERABLES * Differential, Automated (09/05/2023 1:58 AM EDT) Neutrophils % 54.5 % [facility] Neutr Abs (ANC) 4.32 1.70 - 6.10 x10(3)/[facility] Lymphocytes % 30.5 % [facility] Lymphocytes Abs 2.4 0.9 - 3.2 x10(3)/[facility] Monocytes % 11.4 % [facility] Monocyte Abs 0.9 0.3 - 0.9 x10(3)/[facility] Eosinophils % 2.8 % [facility] Eosinophils Abs 0.2 0.0 - 0.4 x10(3)/[facility] Basophils % 0.5 % [facility] Basophils Abs 0.0 0.0 - 0.1 x10(3)/[facility] Immature Gran % 0.30 % [facility] Comment: Immature granulocytes(IG's)percentage and absolute count will include metamyelocytes, myelocytes, and promyelocytes. Blood smears from CBCs yielding IG's will be scanned manually for concordance. If this scan disagrees with the automated IG or if promyelocytes are noted, a manual differential will be performed. Shonda Gran Abs 0.02 0.00 - 0.04 x10(3)/[facility] Blood 09/05/2023 1:58 AM EDT 09/05/2023 2:13 AM EDT Narrative Resulting Agency Comment Spec In Lab Eufemia Copeland MD HEMATOLOGY ORDERAB LES [facility] [place] [address] * Hemogram (09/05/2023 1:58 AM EDT) WBC 7.9 4.0 - 9.5 x10(3)/[facility] RBC 4.38 4.00 - 5.21 x10(6)/[facility] Hemoglobin 13.7 11.7 - 15.5 g/dL [facility] Hematocrit 40.5 35.7 - 45.8 % [facility] MCV 92.5 82.6 - 94.4 fL [facility] MCH 31.3 27.1 - 32.0 pg [facility] MCHC 33.8 31.7 - 35.0 g/dL [facility] Platelets 282 145 - 357 x10(3)/[facility] RDWSD 44.0 37.0 - 46.0 fL [facility] RDWCV 13.0 11.5 - 14.1 % [facility] MPV 10.4 7.6 - 12.9 fL [facility] nRBC % Auto 0.0 % [facility] nRBC Abs Auto 0.000 0.000 - 0.000 x10(3)/[facility] Blood 09/05/2023 1:58 AM EDT 09/05/2023 2:13 AM EDT Narrative Resulting Agency Comment Spec In Lab Eufemia Copeland MD HEMATOLOGY ORDERAB LES [facility] [place] [address] * (ABNORMAL) Basic Metabolic Panel (non-fasting) (09/05/2023 1:58 AM EDT) Glucose Lvl 103 65 - 199 mg/dL [facility] Comment:Diabetes: >=200 mg/d L plus symptoms BUN 24(H) 8 - 18 mg/dL [facility] Creatinine 1.10 0.70 - 1.20 mg/dL [facility] Estimated GFR 60 >=60 mL/min/1. 73 m?? [facility] CHEMISTRY ORDERABL ES Performing Organization Address [facility] Co de Phone Number [facility] [place] [address] * Magnesium (09/05/2023 1:58 AM EDT) Magnesium 1.02 0.69 - 1.07 mmol/L [facility] Blood 09/05/2023 1:58 AM EDT 09/05/2023 2:13 AM EDT Narrative Resulting Agency Comment Spec In Lab Eufemia Copeland MD CHEMISTRY ORDERABL ES Performing Organization Address City/[facility]/ZIP Co de Phone Number [facility] [place] [address] * Miscellaneous Lab request (09/05/2023 1:58 AM EDT) Misc Lab Result Request received in lab. [facility] Blood 09/05/2023 1:58 AM EDT 09/05/2023 2:14 AM EDT Narrative Resulting Agency Comment Spec In Lab Samantha Broussard MD HEMATOLOGY ORDERABLE S Performing Organization Address City/[facility]/ZIP Co de Phone Number [facility] [place] [address] * IgG 4 (09/05/2023 1:58 AM EDT) [facility] IgG 4 47.7 3.9 - 86.4 mg/dL [facility] Blood 09/05/2023 1:58 AM EDT 09/05/2023 2:13 AM EDT Narrative Resulting Agency Comment Spec In Lab Samantha Broussard MD IMMUNOLOGY ORDERABLE S Performing Organization Address City/[facility]/ZIP Co de Phone Number [facility] [place] [address] * (ABNORMAL) Basic Metabolic Panel (non-fasting) (09/04/2023 2:11 PM EDT) [facility] Glucose Lvl 104 65 - 199 mg/dL [facility] Comment:Diabetes: >=200 mg/d L plus symptoms BUN 24(H) 8 - 18 mg/dL [facility] Creatinine 1.34(H) 0.70 - 1.20 mg/dL [facility] Estimated GFR 47(L) >=60 mL/min/1. 73 m?? [facility] Mcmanus MD CHEMISTRY ORDERABLES Performing Organization Address City/[facility] Co de Phone Number [facility] [place] [address] * (ABNORMAL) Potassium (09/04/2023 9:13 AM EDT) [facility] Potassium 3.2(L) 3.5 - 5.0 mmol/L [facility] [...] In Lab Samantha Broussard MD CHEMISTRY ORDERABLES [facility] [place] [address] * (ABNORMAL) Potassium (09/04/2023 4:25 AM EDT) Potassium 2.9(Criti edy) 3.5 - 5.0 mmol/L [facility] Comment: Called by: staci, Read back [...] In Lab Lorna Herr MD CHEMISTRY ORDERABLES [facility] [place] [address] * Differential, Automated (09/04/2023 3:03 AM EDT) Pathologist [facility] Neutrophils % 59.0 % [facility] Neutr Abs (ANC) 4.85 1.70 - 6.10 x10(3)/[facility] Lymphocytes % 26.3 % [facility] Lymphocytes Abs 2.2 0.9 - 3.2 x10(3)/[facility] Monocytes % 10.4 % [facility] Monocyte Abs 0.8 0.3 - 0.9 x10(3)/[facility] Eosinophils % 3.4 % [facility] Eosinophils Abs 0.3 0.0 - 0.4 x10(3)/[facility] Basophils % 0.5 % [facility] Basophils Abs 0.0 0.0 - 0.1 x10(3)/[facility] Immature Gran % 0.40 % [facility] Comment: Immature granulocytes(IG's)percentage and absolute count will include metamyelocytes, myelocytes, and promyelocytes. Blood smears from CBCs yielding IG's will be scanned manually for concordance. If this scan disagrees with the automated IG or if promyelocytes are noted, a manual differential will be performed. Shonda Gran Abs 0.03 0.00 - 0.04 x10(3)/[facility] Blood 09/04/2023 3:03 AM EDT 09/04/2023 3:21 AM EDT Narrative Resulting Agency Comment Spec In Lab Eufemia Copeland MD HEMATOLOGY ORDERAB LES [facility] [place] [address] * (ABNORMAL) Hemogram (09/04/2023 3:03 AM EDT) WBC 8.2 4.0 - 9.5 x10(3)/[facility] RBC 4.55 4.00 - 5.21 x10(6)/[facility] Hemoglobin 14.8 11.7 - 15.5 g/dL [facility] Hematocrit 41.8 35.7 - 45.8 % [facility] MCV 91.9 82.6 - 94.4 [facility] MCH 32.5(H) 27.1 - 32.0 pg [facility] MCHC 35.4(H) 31.7 - 35.0 g/dL [facility] Platelets 306 145 - 357 x10(3)/[facility] RDWSD 42.8 37.0 - 46.0 [facility] RDWCV 12.8 11.5 - 14.1 % [facility] MPV 10.2 7.6 - 12.9 [facility] nRBC % Auto 0.0 % [facility] nRBC Abs Auto 0.000 0.000 - 0.000 x10(3)/[facility] Blood 09/04/2023 3:03 AM EDT 09/04/2023 3:21 AM EDT Narrative Resulting Agency Comment Spec In Lab Eufemia Copeland MD HEMATOLOGY ORDERAB LES [facility] [place] [address] * (ABNORMAL) Basic Metabolic Panel (non-fasting) (09/04/2023 3:03 AM EDT) Glucose Lvl 117 65 - 199 mg/dL [facility] Comment:Diabetes: >=200 mg/d L plus symptoms BUN 28(H) 8 - 18 mg/dL [facility] Creatinine 1.32(H) 0.70 - 1.20 mg/dL [facility] Estimated GFR 48(L) >=60 mL/min/1. 73 m?? [facility] [...] CHEMISTRY ORDERABL ES Performing Organization Address [facility] Co de Phone Number [facility] [place] [address] * Magnesium (09/04/2023 3:03 AM EDT) Pathologist [facility] Magnesium 1.07 0.69 - 1.07 mmol/L [facility] Blood 09/04/2023 3:03 AM EDT 09/04/2023 3:21 AM EDT Narrative Resulting Agency Comment Spec In Lab Eufemia Copealnd MD CHEMISTRY ORDERABL ES Performing Organization Address [facility] Co de Phone Number [facility] [place] [address] * EKG 12 Lead (09/03/2023 6:02 AM EDT) Ventricular rate 65 BPM MUSE SYSTEM Atrial Rate 65 BPM MUSE SYSTEM P-R Interval 196 ms MUSE SYSTEM QRS Duration 94 ms MUSE SYSTEM Q-T Interval 580 ms MUSE SYSTEM QTC Calculated (Bezet) 603 ms MUSE SYSTEM Calculated P [place] 39 degrees MUSE SYSTEM Calculated R [place] 28 degrees MUSE SYSTEM Calculated T [place] 35 degrees MUSE SYSTEM INTERPRETATION Sinus rhythm with Premature atrial complexes Possible Left atrial enlargement Nonspecific ST and T wave abnormality Abnormal ECG When compared with ECG of 03-SEP-2023 03:05, Nonspecific T wave abnormality no longer evident in Inferior leads Nonspecific T wave abnormality, improved in Anterolateral leads QT has lengthened Confirmed by fellow MD Santo Kajal ([id number]) on 09/06/2023 12:52:08 AM Confirmed by MD Lucia Jose ([id number]) on 09/06/2023 9:05:05 PM MUSE SYSTEM 09/03/2023 6:02 AM EDT 09/06/2023 9:05 PM EDT Archie Mcmanus MD ECG ORDERABLES Performing Organization Address [facility] Phone Number MUSE SYSTEM * EKG 12 Lead (09/03/2023 3:05 AM EDT) Ventricular rate 62 BPM MUSE SYSTEM Atrial Rate 62 BPM MUSE SYSTEM P-R Interval 174 ms MUSE SYSTEM QRS Duration 90 ms MUSE SYSTEM Q-T Interval 486 ms MUSE SYSTEM QTC Calculated (Bezet) 493 ms MUSE SYSTEM Calculated P [place] 20 degrees MUSE SYSTEM Calculated R [place] 20 degrees MUSE SYSTEM Calculated T [place] -7 degrees MUSE SYSTEM INTERPRETATION Sinus rhythm with Premature atrial complexes Nonspecific ST and T wave abnormality Abnormal ECG When compared with ECG of 02-SEP-2023 14:42, Premature atrial complexes are now Present QT has lengthened Confirmed by fellow MD Santo Kajal ([id number]) on 09/06/2023 12:50:25 AM Confirmed by MD Lucia Jose ([id number]) on 09/06/2023 9:04:55 PM MUSE SYSTEM 09/03/2023 3:05 AM EDT 09/06/2023 9:04 PM EDT Archie Mcmanus MD ECG ORDERABLES Performing Organization Address [facility] Phone Number MUSE SYSTEM * Differential, Automated (09/03/2023 2:39 AM EDT) Neutrophils % 61.1 % [facility] Neutr Abs (ANC) 5.22 1.70 - 6.10 x10(3)/[facility] Lymphocytes % 24.2 % [facility] Lymphocytes Abs 2.1 0.9 - 3.2 x10(3)/[facility] Monocytes % 10.3 % [facility] Monocyte Abs 0.9 0.3 - 0.9 x10(3)/[facility] Eosinophils % 3.6 % [facility] Eosinophils Abs 0.3 0.0 - 0.4 x10(3)/[facility] Basophils % 0.6 % ST. [...] Shonda Gran Abs 0.02 0.00 - 0.04 x10(3)/[facility] Blood 09/03/2023 2:39 AM EDT 09/03/2023 2:46 AM EDT Narrative Resulting Agency Comment Spec In Lab Eufemia Copeland MD HEMATOLOGY ORDERAB LES [facility] [place] [address] * Hemogram (09/03/2023 2:39 AM EDT) WBC 8.6 4.0 - 9.5 x10(3)/[facility] RBC 4.83 4.00 - 5.21 x10(6)/[facility] Hemoglobin 15.2 11.7 - 15.5 g/dL [facility] Hematocrit 45.4 35.7 - 45.8 % [facility] MCV 94.0 82.6 - 94.4 fL [facility] MCH 31.5 27.1 - 32.0 pg [facility] MCHC 33.5 31.7 - 35.0 g/dL [facility] Platelets 295 145 - 357 x10(3)/[facility] RDWSD 44.1 37.0 - 46.0 fL [facility] RDWCV 12.8 11.5 - 14.1 % [facility] MPV 10.3 7.6 - 12.9 fL [facility] nRBC % Auto 0.0 % [facility] nRBC Abs Auto 0.000 0.000 - 0.000 x10(3)/mcL [facility] Blood 09/03/2023 2:39 AM EDT 09/03/2023 2:46 AM EDT Narrative Resulting Agency Comment Spec In Lab Eufemia Copeland MD HEMATOLOGY ORDERAB LES [facility] [place] [address] * (ABNORMAL) Basic Metabolic Panel (non-fasting) (09/03/2023 2:39 AM EDT) Glucose Lvl 108 65 - 199 mg/dL [facility] [facility] Comment:Diabetes: >=200 mg/d L plus symptoms BUN 23(H) 8 - 18 mg/dL [facility] Creatinine 1.53(H) 0.70 - 1.20 mg/dL [facility] questions. Chloride 93(L) 98 - 107 mmol/L [facility] CO2 30 22 - 31 mmol/L [facility] Anion Gap 15 5 - 15 mmol/L [facility] Calcium 10.4 8.5 - 10.5 mg/dL [facility] Estimated GFR 40(L) >=60 mL/min/1. 73 m?? [facility] CHEMISTRY ORDERABL ES Performing Organization Address [facility] Co de Phone Number [facility] [place] [address] * Magnesium (09/03/2023 2:39 AM EDT) Magnesium 0.98 0.69 - 1.07 mmol/L [facility] Blood 09/03/2023 2:39 AM EDT 09/03/2023 2:46 AM EDT Narrative Resulting Agency Comment Spec In Lab Eufemia Copeland MD CHEMISTRY ORDERABL ES Performing Organization Address [facility] Co de Phone Number [facility] [place] [address] * (ABNORMAL) Protein Electrophoresis, serum (09/03/2023 2:39 AM EDT) Total Prot Elec 7.9 6.1 - 8.0 g/dL [facility] Albumin Elect 4.87 3.20 - 5.20 g/dL [facility] Alpha1-Globul in 0.21 0.10 - 0.30 g/dL [facility] Alpha2-Globul in 1.03(H) 0.40 - 0.90 g/dL [facility] Beta Globulin 0.90 0.50 - 1.00 g/dL [facility] Gamma Globulin 0.88 0.50 - 1.30 g/dL [facility] M1 Band None Detected None Detected [facility] Blood 09/03/2023 2:39 AM EDT 09/03/2023 2:46 AM EDT Narrative Resulting Agency Comment Spec In Lab Lorna Herr MD CHEMISTRY ORDERABLES Performing Organization Address City/[facility]/ZIP Co de Phone Number [facility] [place] [address] * Protein Electrophoresis, urine, random (09/02/2023 9:30 PM EDT) U Protein Ran <6 0 - 12 mg/dL [facility] U Albumin See Note [facility] Comment:No protein visible v ia electrophoresis due to a low urine total protein. U Globulin Not Perf [facility] Comment:No protein visible v ia electrophoresis due to a low urine total protein. U M Band Not Perf [facility] Comment:No protein visible v ia electrophoresis due to a low urine total protein. U PEP Comments See Note [facility] Comment: Total Protein concentration too low to fractionate using current electrophoretic technique. No protein visible via electrophoresis due to a low urine total protein. Urine 09/02/2023 9:30 PM EDT 09/02/2023 9:35 PM EDT Narrative Resulting Agency Comment Spec In Lab Lorna Herr MD URINE ORDERABLES Performing Organization Address City/[facility]/ZIP Co de Phone Number [facility] [place] [address] * (ABNORMAL) Troponin (09/02/2023 8:16 PM EDT) Troponin-T HS 24(H) <=14 ng/L [facility] Reference: Fourth [place] Definition of Myocardial Infarction. Journal of the [employer] 2018;72:4383-5316 Blood 09/02/2023 8:16 PM EDT 09/02/2023 8:25 PM EDT Narrative Resulting Agency Comment Spec In Lab Lorna Herr MD CHEMISTRY ORDERABLES Performing Organization Address City/[facility]/ZIP Co de Phone Number [facility] [place] [address] * (ABNORMAL) pro-Brain Natriuretic Peptide (09/02/2023 5:05 PM EDT) ProBNP 985(H) <=124 pg/mL [facility] Blood 09/02/2023 5:05 PM EDT 09/02/2023 5:17 PM EDT Narrative Resulting Agency Comment Spec In Lab Lorna Herr MD CHEMISTRY ORDERABLES Performing Organization Address City/[facility]/ZIP Co de Phone Number [facility] [place] [address] * (ABNORMAL) Troponin (09/02/2023 5:05 PM EDT) Troponin-T HS 24(H) <=14 ng/L [facility] Catalog Reference: Fourth [place] Definition of Myocardial Infarction. Journal of the [employer] 2018;72:4011-9105 Blood 09/02/2023 5:05 PM EDT 09/02/2023 5:17 PM EDT Narrative Resulting Agency Comment Spec In Lab Lorna Herr MD CHEMISTRY ORDERABLES [facility] [place] [address] * EKG 12 Lead (09/02/2023 2:42 PM EDT) Pathologist [facility] Ventricular rate 60 BPM MUSE SYSTEM Atrial Rate 60 BPM MUSE SYSTEM P-R Interval 178 ms MUSE SYSTEM QRS Duration 88 ms MUSE SYSTEM Q-T Interval 434 ms MUSE SYSTEM QTC Calculated (Bezet) 434 ms MUSE SYSTEM Calculated P [place] 42 degrees MUSE SYSTEM Calculated R [place] 44 degrees MUSE SYSTEM INTERPRETATION Normal sinus [...] AM EDT) Troponin-T HS 22(H) <=14 ng/L [facility] Comment: [...] [facility] Test Catalog Reference: Fourth [place] Definition of Myocardial Infarction. Journal of the [employer] 2018;72:3414-3803 Blood 09/02/2023 9:05 AM EDT 09/02/2023 9:28 AM EDT Narrative Resulting Agency Comment Spec In Lab Archie Mcmanus MD CHEMISTR[place] [address] * Differential, Automated (09/02/2023 3:18 AM EDT) Neutrophils % 58.4 % [facility] Neutr Abs (ANC) 4.40 1.70 - 6.10 x10(3)/[facility] Lymphocytes % 28.2 % [facility] Lymphocytes Abs 2.1 0.9 - 3.2 x10(3)/[facility] Monocytes % 8.3 % [facility] Monocyte Abs 0.6 0.3 - 0.9 x10(3)/[facility] Eosinophils % 4.2 % [facility] Eosinophils Abs 0.3 0.0 - 0.4 x10(3)/[facility] Basophils % 0.5 % [facility] Basophils Abs 0.0 0.0 - 0.1 x10(3)/[facility] Immature Gran % 0.40 % [facility] Comment: Immature granulocytes(IG's)percentage and absolute count will include metamyelocytes, myelocytes, and promyelocytes. Blood smears from CBCs yielding IG's will be scanned manually for concordance. If this scan disagrees with the automated IG or if promyelocytes are noted, a manual differential will be performed. Shonda Gran Abs 0.03 0.00 - 0.04 x10(3)/[facility] Blood 09/02/2023 3:18 AM EDT 09/02/2023 3:55 AM EDT Narrative Resulting Agency Comment Spec In Lab Eufemia Copeland MD HEMATOLOGY [place] [address] * (ABNORMAL) Hemogram (09/02/2023 3:18 AM EDT) Pathologist [facility] WBC 7.6 4.0 - 9.5 x10(3)/[facility] RBC 4.33 4.00 - 5.21 x10(6)/[facility] Hemoglobin 13.6 11.7 - 15.5 g/dL [facility] Hematocrit 41.0 35.7 - 45.8 % [facility] MCV 94.7(H) 82.6 - 94.4 fL [facility] MCH 31.4 27.1 - 32.0 pg [facility] MCHC 33.2 31.7 - 35.0 g/dL [facility] Platelets 275 145 - 357 x10(3)/[facility] RDWSD 45.7 37.0 - 46.0 [facility] RDWCV 13.2 11.5 - 14.1 % [facility] MPV 10.7 7.6 - 12.9 [facility] nRBC % Auto 0.0 % [facility] nRBC Abs Auto 0.000 0.000 - 0.000 x10(3)/[facility] Blood 09/02/2023 3:18 AM EDT 09/02/2023 3:55 AM EDT Narrative Resulting Agency Comment Spec In Lab Eufemia Copeland MD HEMATOLOGY ORDERAB LES [facility] [place] [address] * (ABNORMAL) Troponin (09/02/2023 3:18 AM EDT) Pathologist [facility] Troponin-T HS 23(H) <=14 ng/L [facility] Comment: [...] [facility] Catalog Reference: Fourth [place] Definition of Myocardial Infarction. Journal of the [employer] 2018;72:2847-6487 Blood 09/02/2023 3:18 AM EDT 09/02/2023 3:55 AM EDT Narrative Resulting Agency Comment Spec In Lab Archie Mcmanus MD CHEMISTRY ORDERABLES [facility] [place] [address] * (ABNORMAL) Basic Metabolic Panel (non-fasting) (09/02/2023 3:18 AM EDT) Glucose Lvl 121 65 - 199 mg/dL [facility] CHEMISTRY ORDERABL ES Performing Organization Address [facility] Co de Phone Number [facility] [place] [address] * Magnesium (09/02/2023 3:18 AM EDT) Magnesium 0.91 0.69 - 1.07 mmol/L [facility] Blood 09/02/2023 3:18 AM EDT 09/02/2023 3:55 AM EDT Narrative Resulting Agency Comment Spec In Lab Eufemia Copeland MD CHEMISTRY ORDERABL ES Performing Organization Address [facility]/ZIP Co de Phone Number [facility] [place] [address] * Differential, Automated (09/01/2023 3:08 AM EDT) Neutrophils % 57.1 % [facility] Neutr Abs (ANC) 4.00 1.70 - 6.10 x10(3)/[facility] Lymphocytes % 26.9 % [facility] Lymphocytes Abs 1.9 0.9 - 3.2 x10(3)/[facility] Monocytes % 11.4 % [facility] Monocyte Abs 0.8 0.3 - 0.9 x10(3)/[facility] Eosinophils % 4.1 % [facility] Eosinophils Abs 0.3 0.0 - 0.4 x10(3)/[facility] Basophils % 0.4 % [facility] Basophils Abs 0.0 0.0 - 0.1 x10(3)/[facility] Immature Gran % 0.10 % [facility] [...] - 0.04 x10(3)/[facility] Blood 09/01/2023 3:08 AM EDT 09/01/2023 3:18 AM EDT Narrative Resulting Agency Comment Spec In Lab Eufemia Copeland MD HEMATOLOGY ORDERAB LES [facility] [place] [address] * (ABNORMAL) Hemogram (09/01/2023 3:08 AM EDT) WBC 7.0 4.0 - 9.5 x10(3)/[facility] RBC 4.18 4.00 - 5.21 x10(6)/[facility] Hemoglobin 13.6 11.7 - 15.5 g/dL [facility] Hematocrit 39.8 35.7 - 45.8 % [facility] MCV 95.2(H) 82.6 - 94.4 [facility] MCH 32.5(H) 27.1 - 32.0 pg [facility] MCHC 34.2 31.7 - 35.0 g/dL [facility] Platelets 232 145 - 357 x10(3)/[facility] RDWSD 45.0 37.0 - 46.0 [facility] RDWCV 13.1 11.5 - 14.1 % [facility] MPV 10.2 7.6 - 12.9 [facility] nRBC % Auto 0.0 % [facility] nRBC Abs Auto 0.000 0.000 - 0.000 x10(3)/[facility] Blood 09/01/2023 3:08 AM EDT 09/01/2023 3:18 AM EDT Narrative Resulting Agency Comment Spec In Lab Eufemia Copeland MD HEMATOLOGY ORDERAB LES [facility] [place] [address] * (ABNORMAL) Basic Metabolic Panel (non-fasting) (09/01/2023 [...] CHEMISTRY ORDERABL ES Performing Organization Address [facility]/ZIP Co de Phone Number [facility] [place] [address] * Magnesium (09/01/2023 3:08 AM EDT) Magnesium 0.98 0.69 - 1.07 mmol/L [facility] Blood 09/01/2023 3:08 AM EDT 09/01/2023 3:18 AM EDT Narrative Resulting Agency Comment Spec In Lab Eufemia Copeland MD CHEMISTRY ORDERABL ES Performing Organization Address [facility]/ZIP Co de Phone Number [facility] [place] [address] * Magnesium (08/31/2023 5:03 PM EDT) Magnesium 0.95 0.69 - 1.07 mmol/L [facility] Blood 08/31/2023 5:03 PM EDT 08/31/2023 5:08 PM EDT Narrative Resulting Agency Comment Spec In Lab Eufemia Copeland MD CHEMISTRY ORDERABL ES Performing Organization Address [facility] Co de Phone Number [facility] [place] [address] * Phosphorus (08/31/2023 5:03 PM EDT) Phosphorus 3.8 2.5 - 4.5 mg/dL [facility] Blood 08/31/2023 5:03 PM EDT 08/31/2023 5:08 PM EDT Narrative Resulting Agency Comment Spec In Lab Eufemia Copeland MD CHEMISTRY ORDERABL ES Performing Organization Address [facility] Co de Phone Number [facility] [place] [address] * (ABNORMAL) Basic Metabolic Panel (non-fasting) (08/31/2023 [...] ORDERABL ES [facility] [place] [address] * Differential, Automated (08/31/2023 2:18 AM EDT) Neutrophils % 58.1 % [facility] Neutr Abs (ANC) 4.52 1.70 - 6.10 x10(3)/[facility] Lymphocytes % 25.8 % [facility] Lymphocytes Abs 2.0 0.9 - 3.2 x10(3)/[facility] Monocytes % 11.0 % [facility] Monocyte Abs 0.9 0.3 - 0.9 x10(3)/[facility] Eosinophils % 4.0 % [facility] Eosinophils Abs 0.3 0.0 - 0.4 x10(3)/[facility] Basophils % 0.6 % [facility] Basophils Abs 0.0 0.0 - 0.1 x10(3)/[facility] Immature Gran % 0.50 % [facility] Comment: Immature granulocytes(IG's)percentage and absolute count will include metamyelocytes, myelocytes, and promyelocytes. Blood smears from CBCs yielding IG's will be scanned manually for concordance. If this scan disagrees with the automated IG or if promyelocytes are noted, a manual differential will be performed. Shonda Gran Abs 0.04 0.00 - 0.04 x10(3)/[facility] Blood 08/31/2023 2:18 AM EDT 08/31/2023 2:23 AM EDT Narrative Resulting Agency Comment Spec In Lab Archie Mcmanus MD HEMATOLOGY ORDERABLE S Performing Organization Address City/State/[facility] Co de Phone Number [facility] [place] [address] * (ABNORMAL) Hemogram (08/31/2023 2:18 AM EDT) WBC 7.8 4.0 - 9.5 x10(3)/[facility] RBC 3.97(L) 4.00 - 5.21 x10(6)/[facility] Hemoglobin 12.6 11.7 - 15.5 g/dL [facility] Hematocrit 38.5 35.7 - 45.8 % [facility] MCV 97.0(H) 82.6 - 94.4 fL [facility] MCH 31.7 27.1 - 32.0 pg [facility] MCHC 32.7 31.7 - 35.0 g/dL [facility] Platelets 218 145 - 357 x10(3)/[facility] RDWSD 47.5(H) 37.0 - 46.0 fL [facility] RDWCV 13.2 11.5 - 14.1 % [facility] MPV 10.6 7.6 - 12.9 fL [facility] nRBC % Auto 0.0 % [facility] nRBC Abs Auto 0.000 0.000 - 0.000 x10(3)/mcL [facility] Blood 08/31/2023 2:18 AM EDT 08/31/2023 2:23 AM EDT Narrative Resulting Agency Comment Spec In Lab Archie Mcmanus MD HEMATOLOGY ORDERABLE S Performing Organization Address City/[facility]/ZIP Co de Phone Number [facility] [place] [address] * Magnesium (08/31/2023 2:18 AM EDT) Magnesium 0.96 0.69 - 1.07 mmol/L [facility] Blood 08/31/2023 2:18 AM EDT 08/31/2023 2:23 AM EDT Narrative Resulting Agency Comment Spec In Lab Eufemia Copeland MD CHEMISTRY ORDERABL ES Performing Organization Address [facility] Co de Phone Number [facility] [place] [address] * (ABNORMAL) Basic Metabolic Panel (non-fasting) (08/31/2023 2:18 AM EDT) Glucose Lvl 114 65 - 199 mg/dL [facility] Comment:Diabetes: >=200 mg/d L plus symptoms BUN 18 8 - 18 mg/dL [facility] Creatinine 1.37(H) 0.70 - 1.20 mg/dL [facility] Sodium 137 135 - 145 mmol/L [facility] Comment:result rechecked-bz Potassium 3.8 3.5 - 5.0 mmol/L [facility] Comment: result rechecked-bz Please note: ??Patients with WBC >100,000 may have falsely elevated Potassium levels. ??For accurate Potassium quantification in these patients send serum separator tube (gold top) for subsequent determinations. ??Contact the Clinical Chemistry Laboratory if there are any questions. Chloride 100 98 - 107 mmol/L [facility] Comment:result rechecked-bz CO2 25 22 - 31 mmol/L [facility] Anion Gap 12 5 - 15 mmol/L [facility] Calcium 9.6 8.5 - 10.5 mg/dL [facility] Comment:result rechecked-bz Estimated GFR 46(L) >=60 [...] In Lab Archie Mcmanus MD CHEMISTRY ORDERABLES [facility] [place] [address] * Differential, Automated (08/30/2023 3:09 AM EDT) Neutrophils % 67.5 % [facility] Neutr Abs (ANC) 5.26 1.70 - 6.10 x10(3)/[facility] Lymphocytes % 19.1 % [facility] Lymphocytes Abs 1.5 0.9 - 3.2 x10(3)/[facility] Monocytes % 9.4 % [facility] Monocyte Abs 0.7 0.3 - 0.9 x10(3)/[facility] Eosinophils % 3.2 % [facility] Eosinophils Abs 0.2 0.0 - 0.4 x10(3)/[facility] Basophils % 0.4 % [facility] Basophils Abs 0.0 0.0 - 0.1 x10(3)/[facility] Immature Gran % 0.40 % [facility] Comment: Immature granulocytes(IG's)percentage and absolute count will include metamyelocytes, myelocytes, and promyelocytes. Blood smears from CBCs yielding IG's will be scanned manually for concordance. If this scan disagrees with the automated IG or if promyelocytes are noted, a manual differential will be performed. Shonda Gran Abs 0.03 0.00 - 0.04 x10(3)/[facility] Blood 08/30/2023 3:09 AM EDT 08/30/2023 3:21 AM EDT Narrative Resulting Agency Comment Spec In Lab Archie Mcmanus MD HEMATOLOGY ORDERABLE S [facility] [place] [address] * (ABNORMAL) Hemogram (08/30/2023 3:09 AM EDT) WBC 7.8 4.0 - 9.5 x10(3)/[facility] RBC 3.34(L) 4.00 - 5.21 x10(6)/[facility] Hemoglobin 10.5(L) 11.7 - 15.5 g/dL [facility] Hematocrit 31.8(L) 35.7 - 45.8 % [facility] MCV 95.2(H) 82.6 - 94.4 fL [facility] MCH 31.4 27.1 - 32.0 pg [facility] MCHC 33.0 31.7 - 35.0 g/dL [facility] Platelets 176 145 - 357 x10(3)/[facility] RDWSD 46.5(H) 37.0 - 46.0 fL [facility] RDWCV 13.2 11.5 - 14.1 % [facility] MPV 10.9 7.6 - 12.9 fL [facility] nRBC % Auto 0.0 % [facility] nRBC Abs Auto 0.000 0.000 - 0.000 x10(3)/[facility] Blood 08/30/2023 3:09 AM EDT 08/30/2023 3:21 AM EDT Narrative Resulting Agency Comment Spec In Lab Archie Mcmanus MD HEMATOLOGY ORDERABLE S [facility] [place] [address] * Heparin (unfractionated) Level (08/30/2023 3:09 AM EDT) Heparin UFH Level 0.46 IU/mL [facility] Comment: [...] Lab Archie Mcmanus MD HEMATOLOGY ORDERABLE S [facility] [place] [address] * Magnesium (08/30/2023 3:09 AM EDT) [facility] Magnesium 0.74 0.69 - 1.07 mmol/L [facility] Blood 08/30/2023 3:09 AM EDT 08/30/2023 3:20 AM EDT Narrative Resulting Agency Comment Spec In Lab Eufemia Copeland MD CHEMISTRY ORDERABL ES Performing Organization Address [facility]/ZIP Co de Phone Number [facility] [place] [address] * (ABNORMAL) Basic Metabolic Panel (non-fasting) (08/30/2023 3:09 AM EDT) [facility] Glucose Lvl 99 65 - 199 mg/dL [facility] Comment:Diabetes: >=200 mg/d L plus symptoms BUN 16 8 - 18 mg/dL [facility] Creatinine 1.03 0.70 - 1.20 mg/dL [facility] Sodium 145 135 - 145 mmol/L [facility] questions. Chloride 114(H) 98 - 107 mmol/L [facility] CO2 19(L) 22 - 31 mmol/L [facility] Anion Gap 12 5 - 15 mmol/L [facility] Calcium 7.1(L) 8.5 - 10.5 mg/dL [facility] Comment:result rechecked-mg Estimated GFR 65 >=60 [...] Mcmanus MD CHEMISTRY ORDERABLES Performing Organization Address [facility] Co de Phone Number [facility] [place] [address] * Heparin (unfractionated) Level (08/29/2023 5:49 PM EDT) Heparin UFH Level 0.52 IU/mL [facility] [...] S Performing Organization Address City/[facility]/ZIP Co de Phone Number [facility] [place] [address] * EKG 12 Lead (08/29/2023 3:05 PM EDT) Ventricular rate 56 BPM MUSE SYSTEM Atrial Rate 56 BPM MUSE SYSTEM P-R Interval 172 ms MUSE SYSTEM QRS Duration 86 ms MUSE SYSTEM Q-T Interval 560 ms MUSE SYSTEM QTC Calculated (Bezet) 540 ms MUSE SYSTEM Calculated P [place] 10 degrees MUSE SYSTEM Calculated R [place] 27 degrees MUSE SYSTEM Calculated T [place] 8 degrees MUSE SYSTEM INTERPRETATION Sinus bradycardia [...] AM EDT) Heparin UFH Level 0.55 IU/mL [facility] Comment: [...] Archie Mcmanus MD HEMATOLOGY ORDERABLE S [facility] [place] [address] * ECHO LMTD W CONTRAST W LMTD SPEC DOPP COLOR DOPP (08/29/2023 11:35 AM EDT) EF 50 [facility] Anatomical Region Laterality Modality Cardiac Other 08/29/2023 9:47 AM EDT Narrative 08/29/2023 12:27 PM EDT [address] [place] [id number] ? Echocardiogram Report Name: LOIDA MADRIGAL ? Study Date: 08/29/2023 09:47 AMBP: 100/55 mmHg ? Patient Location: [id number] A : 1970 ? Height: 163 cm ? Account: [id number] Age: 53 yrs ? Weight: 102 kg Gender: Female ?BSA: 2.1 m2 Ordering Physician: ARCHIE MCMANUS Referring Physician: SKIP HUMPHREY Performed By: Nalini Alvares [facility] Exam Location: [facility]. Interpretation Summary Left ventricle is [...] of the anterior wall. Procedure Limited - 105[address]. Image enhancement Optison was used for left [...] Note Jaspreet Kinsey MD - 08/29/2023 [address] [place] [address] Echocardiogram Report Name: LOIDA MADRIGAL Study Date: 409:47 AMBP: 100/55 mmHg Patient Location: [address] : 1970 Height: 163 cm Account: [id number] Age: 53 yrs Weight: 102 kg Gender: Female BSA: 2.1 m2 Ordering Physician: ARCHIE MCMANUS Referring Physician: SKIP HUMPHREY Performed By: Nalini Alvares RDCS Exam Location: [facility]. Interpretation Summary Left ventricle is normal in size. There is low normal global systolicfunction, with focal hypokinesis in the anteroseptum as ascribed. Right ventricle is not well visualized. No hemodynamically significant valve disease. Compared to prior studies over the past 6 months, there has been stableglobal LV systolic function, with oscillating regional function of the anteriorwall. Procedure Limited - 16895. Image enhancement Optison was used for left [...] (Bezet) 546 ms MUSE SYSTEM Calculated P [place] 21 degrees MUSE SYSTEM Calculated R [place] 21 degrees MUSE SYSTEM Calculated T [place] 0 degrees MUSE SYSTEM INTERPRETATION Sinus bradycardia Possible Lateral infarct (cited on or before 29-JUL-2023) Prolonged QT Abnormal ECG When compared with ECG of 29-JUL-2023 08:47, Premature atrial complexes are no longer Present Criteria for Septal infarct are no longer Present Nonspecific T wave abnormality, improved in Inferior leads QT has lengthened Confirmed by MD Amelie, Jaspreet ([id number]) on 08/29/2023 3:51:39 PM MUSE SYSTEM 08/29/2023 6:04 AM EDT 08/29/2023 3:51 PM EDT Archie Mcmanus MD ECG ORDERABLES MUSE SYSTEM * CRP, acute inflammation (08/29/2023 4:01 AM EDT) Pathologist [facility] CRP <3.0 <=4.9 mg/L [facility] Blood Venous Draw / Unknown 08/29/2023 4:01 AM EDT 08/29/2023 4:13 AM EDT Narrative Resulting Agency Comment Spec In Lab Eufemia Copeland MD CHEMISTRY ORDERABL ES [facility] [place] [address] * Sedimentation rate (08/29/2023 4:01 AM EDT) Pathologist [facility] Sed Rate 11 2 - 39 mm/hr [facility] MD HEMATOLOGY ORDERAB LES Performing Organization Address City/[facility]/ZIP Co de Phone Number [facility] [place] [address] * Green Tube HOLD (08/29/2023 4:01 AM EDT) Green Hold Sample in lab. [facility] Blood Venous Draw / Unknown 08/29/2023 4:01 AM EDT 08/29/2023 4:09 AM EDT Archie Mcmanus MD CHEMISTRY ORDERABLES Performing Organization Address City/[facility] Co de Phone Number [facility] [place] [address] * Differential, Automated (08/29/2023 4:01 AM EDT) Neutrophils % 65.6 % [facility] Neutr Abs (ANC) 5.23 1.70 - 6.10 x10(3)/[facility] Lymphocytes % 21.4 % [facility] Lymphocytes Abs 1.7 0.9 - 3.2 x10(3)/[facility] Monocytes % 8.5 % [facility] Monocyte Abs 0.7 0.3 - 0.9 x10(3)/[facility] Eosinophils % 4.0 % [facility] Eosinophils Abs 0.3 0.0 - 0.4 x10(3)/[facility] Basophils % 0.4 % [facility] Basophils Abs 0.0 0.0 - 0.1 x10(3)/[facility] Immature Gran % 0.10 % [facility] [...] - 0.04 x10(3)/[facility] Blood 08/29/2023 4:01 AM EDT 08/29/2023 4:08 AM EDT Narrative Resulting Agency Comment Spec In Lab Archie Mcmanus MD HEMATOLOGY ORDERABLE S [facility] [place] [address] * (ABNORMAL) Hemogram (08/29/2023 4:01 AM EDT) WBC 8.0 4.0 - 9.5 x10(3)/[facility] RBC 3.91(L) 4.00 - 5.21 x10(6)/[facility] Hemoglobin 12.6 11.7 - 15.5 g/dL [facility] Hematocrit 37.6 35.7 - 45.8 % [facility] MCV 96.2(H) 82.6 - 94.4 fL [facility] MCH 32.2(H) 27.1 - 32.0 pg [facility] MCHC 33.5 31.7 - 35.0 g/dL [facility] Platelets 197 145 - 357 x10(3)/[facility] RDWSD 46.7(H) 37.0 - 46.0 fL [facility] RDWCV 13.3 11.5 - 14.1 % [facility] MPV 10.4 7.6 - 12.9 fL [facility] nRBC % Auto 0.0 % [facility] nRBC Abs Auto 0.000 0.000 - 0.000 x10(3)/mcL [facility] Blood 08/29/2023 4:01 AM EDT 08/29/2023 4:08 AM EDT Narrative Resulting Agency Comment Spec In Lab Archie Mcmanus MD HEMATOLOGY ORDERABLE S Performing Organization Address [facility]/ZIP Co de Phone Number [facility] [place] [address] * (ABNORMAL) Heparin (unfractionated) Level (08/29/2023 4:01 AM EDT) Heparin UFH Level 1.04(Crit ical) IU/mL [facility] [...] S Performing Organization Address City/[facility]/ZIP Co de Phone Number [facility] [place] [address] * (ABNORMAL) Basic Metabolic Panel (non-fasting) (08/29/2023 [...] In Lab Archie Mcmanus MD CHEMISTRY ORDERABLES [facility] [place] [address] * (ABNORMAL) Troponin (08/29/2023 12:31 AM EDT) Troponin-T HS 31(H) <=14 ng/L [facility] Comment: [...] [facility] Test Catalog Reference: Fourth [place] Definition of Myocardial Infarction. Journal of the [place] College [employer] 2018;72:4542-9951 Blood 08/29/2023 12:3 1 AM EDT 08/29/2023 12:35 AM EDT Narrative Resulting Agency Comment Spec In Lab Archie Mcmanus MD CHEMISTRY ORDERABLES [facility] [place] [address] * Differential, Automated (08/28/2023 9:07 PM EDT) Neutrophils % 59.8 % [facility] Neutr Abs (ANC) 4.06 1.70 - 6.10 x10(3)/mcL [facility] Lymphocytes % 28.8 % [facility] Lymphocytes Abs 2.0 0.9 - 3.2 x10(3)/[facility] Monocytes % 5.7 % [facility] Monocyte Abs 0.4 0.3 - 0.9 x10(3)/[facility] Eosinophils % 4.6 % [facility] Eosinophils Abs 0.3 0.0 - 0.4 x10(3)/[facility] Basophils % 0.7 % [facility] Basophils Abs 0.0 0.0 - 0.1 x10(3)/[facility] Immature Gran % 0.40 % [facility] Comment: Immature granulocytes(IG's)percentage and absolute count will include metamyelocytes, myelocytes, and promyelocytes. Blood smears from CBCs yielding IG's will be scanned manually for concordance. If this scan disagrees with the automated IG or if promyelocytes are noted, a manual differential will be performed. Shonda Gran Abs 0.03 0.00 - 0.04 x10(3)/[facility] Blood 08/28/2023 9:07 PM EDT 08/28/2023 9:12 PM EDT Narrative Resulting Agency Comment Spec In Lab Archie Mcmanus MD HEMATOLOGY ORDERABLE S Performing Organization Address City/State/[facility] Co de Phone Number [facility] [place] [address] * (ABNORMAL) Hemogram (08/28/2023 9:07 PM EDT) WBC 6.8 4.0 - 9.5 x10(3)/[facility] RBC 4.39 4.00 - 5.21 x10(6)/[facility] Hemoglobin 14.1 11.7 - 15.5 g/dL [facility] Hematocrit 42.2 35.7 - 45.8 % [facility] MCV 96.1(H) 82.6 - 94.4 fL [facility] MCH 32.1(H) 27.1 - 32.0 pg [facility] MCHC 33.4 31.7 - 35.0 g/dL [facility] Platelets 234 145 - 357 x10(3)/[facility] RDWSD 47.3(H) 37.0 - 46.0 [facility] RDWCV 13.3 11.5 - 14.1 % [facility] MPV 10.3 7.6 - 12.9 [facility] nRBC % Auto 0.0 % [facility] nRBC Abs Auto 0.000 0.000 - 0.000 x10(3)/[facility] Blood 08/28/2023 9:07 PM EDT 08/28/2023 9:12 PM EDT Narrative Resulting Agency Comment Spec In Lab Archie Mcmanus MD HEMATOLOGY ORDERABLE S [facility] [place] [address] * (ABNORMAL) Heparin (unfractionated) Level (08/28/2023 9:07 PM EDT) Heparin UFH Level 1.90(Crit ical) IU/mL [facility] [...] Lab Archie Mcmanus MD HEMATOLOGY ORDERABLE S [facility] [place] [address] * Lipid Panel (Reflex Direct LDL) (08/28/2023 9:07 PM EDT) Chol, Total 203 mg/dL [facility] Comment: Desirable: ? <200 mg/dL Borderline High: 200-239 mg/dL Higher: ?>gl=400 mg/dL Triglycerides 146 mg/dL [facility] Comment: Normal: ?<150 mg/dL Borderline High: 150-199 mg/dL High: ?200-499 mg/dL Very High: ? >pb=971 mg/dL HDL 52 mg/dL [facility] Comment: Females: High Risk: <50 mg/dL Males: High Risk: <40 mg/dL LDL Cholesterol 122 mg/dL [facility] Comment: Desirable: ? <100 mg/dL Above Desirable: 100-129 mg/dL Borderline High: 130-159 mg/dL High: ?160-189 mg/dL Very High: ? >ja=246 mg/dL Lipid Interpretation See Note [facility] [...] ACC/AHA Guidelines (most recently Ysabel et al. [facility] 12/09/21): For individuals with atherosclerotic cardiovascular disease (ASCVD)or LDL >cn=577 mg/dL, use a high-intensity statin (40-80 mg [...] In Lab Archie Mcmanus MD CHEMISTRY ORDERABLES [facility] [place] [address] * (ABNORMAL) pro-Brain Natriuretic Peptide (08/28/2023 9:07 PM EDT) [facility] Signature ProBNP 2,854(H) <=124 pg/mL [facility] Blood 08/28/2023 9:07 PM EDT 08/28/2023 9:12 PM EDT Narrative Resulting Agency Comment Spec In Lab Archie Mcmanus MD CHEMISTRY ORDERABLES Performing Organization Address City/[facility]/ZIP Co de Phone Number [facility] [place] [address] * (ABNORMAL) Troponin (08/28/2023 9:07 PM EDT) Troponin-T HS 31(H) <=14 ng/L [facility] Comment: [...] [facility] Test Catalog Reference: Fourth [place] Definition of Myocardial Infarction. Journal of the [place] College [employer] 2018;72:7618-0941 Blood 08/28/2023 9:07 PM EDT 08/28/2023 9:12 PM EDT Narrative Resulting Agency Comment Spec In Lab Archie Mcmanus MD CHEMISTRY ORDERABLES Performing Organization Address City/[facility]/ZIP Co de Phone Number [facility] [place] [address] * (ABNORMAL) Hepatic Function Panel (08/28/2023 9:07 PM EDT) Total Protein 6.6 6.1 - 8.0 g/dL [facility] Albumin 4.2 3.2 - 5.2 g/dL [facility] AST 32(H) 0 - 30 unit/L [facility] ALT 28 0 - 30 unit/L [facility] Alk Phos 52 35 - 105 unit/L [facility] Total Bilirubin 0.6 0.2 - 1.3 mg/dL [facility] Bili, Direct 0.2 0.0 - 0.3 mg/dL [facility] Blood 08/28/2023 9:07 PM EDT 08/28/2023 9:12 PM EDT Narrative Resulting Agency Comment Spec In Lab Archie Mcmanus MD CHEMISTRY ORDERABLES [facility] [place] [address] * (ABNORMAL) Basic Metabolic Panel (non-fasting) (08/28/2023 9:07 PM EDT) [facility] Glucose Lvl 95 65 - 199 mg/dL [facility] Comment:Diabetes: >=200 mg/d L plus symptoms BUN 22(H) 8 - 18 mg/dL [facility] Creatinine 1.13 0.70 - 1.20 mg/dL [facility] [...] Mcmanus MD CHEMISTRY ORDERABLES Performing Organization Address City/[facility]/ZIP Co de Phone Number [facility] [place] [address] * Magnesium (08/28/2023 9:07 PM EDT) Magnesium 1.05 0.69 - 1.07 mmol/L [facility] Blood 08/28/2023 9:07 PM EDT 08/28/2023 9:12 PM EDT Narrative Resulting Agency Comment Spec In Lab Archie Mcmanus MD CHEMISTRY ORDERABLES Performing Organization Address City/[facility]/ZIP Co de Phone Number [facility] [place] [address] documented in this encounter Visit Diagnoses Diagnosis [...] Cardoza RN)[id number] (Given - Provider: Jo Ann eBllo RN) 0821 (Given - Provider: Tim Cardoza [...] RN) documented in this encounter Care Teams Commercial Lines Manager Relationship Specialty Start Date End Date Polo Pearce PA [facility] [address] [place] [address] PCP - General Internal Medicine 06/09/21 documented as of this encounter
--- OUTSIDE RECORDS SUMMARY | 2023-10-05 17:00 | XMS_ITS | Encounter Summary ---
[place] [address] Care Team Providers Care Checker Product Design Name Role Phone Polo Pearce Primary Care Provider [phone] Reason for Visit * Auth/Cert (Routine) Specialty Diagnoses / Procedures Referred By Jayant harris Referred To Contact Diagnoses NSTEMI (non-ST elevated myocardial infarction) NSTEMI Procedures EMERGENCY [place] [address] [facility] Referral ID Status Reason Start Date Expiration Date Visits Re quested Visits Authorized [id number] 1 1 Encounter Details Date Type Department Care Team (Late st Contact Info) Description 08/25/2023 12:55 PM EDT Laboratory Appointment Lab [address] [place] [address] Social History Tobacco Use Types Packs/Day Years [...] AM EDT Tech [place] [address] Channing Escobedo [place] 10/08/2023 9:30 AM EDT Office [place] [phone] MD [facility] [place] [address] 10/21/2023 10:30 AM EDT Appointment [place] [address] Mary Reyes [facility] [place] [address] 10/21/2023 11:30 AM EDT Appointment Nuclear Medicine at [place] [phone] Mary Reyes [facility] [place] [address] 10/21/2023 12:30 PM EDT Appointment Nuclear Medicine at [place] [phone] Mary Reyes [facility] [place] [address] 10/21/2023 1:30 PM EDT Appointment [place] [address] Mary Reyes [facility] [place] [address] 10/21/2023 2:30 PM EDT Appointment [place] [address] Mary Reyes [facility] [address] 10/26/2023 4:00 PM EDT Office Visit Cardiology at [address] [phone] Jaspreet Kinsey MD [facility] [place] [address] 10/28/2023 9:00 AM EDT Office [place] [address] 10/29/2023 10:00 AM EDT Clinical Support [place] [address] 10/29/2023 10:15 AM EDT Procedure [place] [address] 11/01/2023 5:00 PM EDT Office Visit Gastroenterology at [place] [phone] Selene Browning, PhD [facility] [place] [address] 11/22/2023 4:40 PM EDT Office Visit Cardiology at [address] [phone] Porsha Mcdaniels MD [facility] [place] [address] 12/13/2023 10:00 AM EDT Clinical Support [place] [address] Lucero Romero, RD [facility] [place] [place] [address] documented as of this encounter Visit Diagnoses Not on filedocumented in this encounter Care Teams Checker Product Design Relationship Specialty Start Date End Date Polo Pearce PA Sb MOTT [address] [place] [id number] PCP - General Internal Medicine 06/09/21 documented as of this encounter
--- OUTSIDE RECORDS SUMMARY | 2023-10-05 17:00 | XMS_ITS | Encounter Summary ---
Author Organization [facility] Address [facility] [place] [address] Care Team Providers Care Manager Sales Name Role Phone Polo Pearce Primary Care Provider [phone] Encounter Details Date Type Department Care Team (Latest Contact Info) Description 08/17/2023 Travel Social History Tobacco Use Types Packs/Day Years Used Date Smoking Tobacco: Never Smokeless Tobacco: Never Alcohol Use Standard Drinks/Week Comments Never 0 (1 standard drink = 0.6 oz pur e alcohol) [facility] Utilities Answer Date Recorded In [...] in a residential (including now)? No 06/15/2023 IPV Inpatient Questions [...] AM EDT Tech [place] [phone] Channing Escob[place] 10/08/2023 9:30 AM EDT Office [place] [phone] MD [facility] [place] [place] [address] 10/21/2023 10:30 AM EDT Appointment [place] [phone] Mary Reyes PHLEBOTOMY TECHNICIAN [facility] [place] [address] 10/21/2023 11:30 AM EDT Appointment [place] [phone] Mary Reyes APRN [facility] [place] [address] 10/21/2023 12:30 PM EDT Appointment [place] [address] Mary Reyes, [place] [address] 10/21/2023 1:30 PM EDT Appointment [place] [address] Mary Reyes PHLEBOTOMY [place] [address] 10/21/2023 2:30 PM EDT Appointment [place] [address] [place] [address] 10/26/2023 4:00 PM EDT Office Visit Cardiology at [address] [phone] Jaspreet Kinsey MD [facility] [place] [address] 10/28/2023 9:00 AM EDT Office [place] [address] 10/29/2023 10:00 AM EDT Clinical Support [place] [address] 10/29/2023 10:15 AM EDT Procedure [place] [address] 11/01/2023 5:00 PM EDT Office [place] [address] Selene Browning, PhD [facility] [place] [address] 11/22/2023 4:40 PM EDT Office Visit Cardiology at [address] [phone] Porsha Mcdaniels MD [facility] [place] [address] 12/13/2023 10:00 AM EDT Clinical Support [place] [address] [facility] [place] [address] documented as of this encounter Visit Diagnoses Not on filedocumented in this encounter Care Teams Manager Sales Relationship Specialty Start Date End Date Polo Pearce PA Sb MOTT [address] [place] [phone] PCP - General Internal Medicine 06/09/21 documented as of this encounter
--- OUTSIDE RECORDS SUMMARY | 2023-10-05 17:01 | XMS_ITS | Encounter Summary ---
Author Organization [facility] [place] [address] Care Team Providers Care Medical Lab Scientist Name Role Phone Polo Pearce Primary Care Provider [phone] Reason for Referral * Diagnostic Test (Routine) - Closed Specialty Diagnoses / Procedures Referred By Contac t Referred To Contact Radiology Diagnoses Chest pain, unspecified type Procedures NM PET CT Cardiac Pharmacologic Stress CT Component Porsha Mcdaniels MD [facility] [place] [address] [place] [address] Referral ID Status Reason Start Date Expiration Date V isits Requested Visits Authorized [id number] Closed Specialty Service Requested 08/03/2023 10/01/2023 1 1 * Diagnostic Test (Routine) - Closed Specialty Diagnoses / Procedures Referred By Contac t Referred To Contact Radiology Diagnoses Chest pain, unspecified type Procedures NM PET CT Cardiac Pharmacologic Stress and Rest Porsha Mcdaniels MD [facility] [place] [address] [place] [address] Referral ID Status Reason Start Date Expiration Date V isits Requested Visits Authorized [id number] Closed Specialty Service Requested 08/03/2023 10/01/2023 1 1 * Diagnostic Test (Routine) - New Request Specialty Diagnoses / Procedures Referred By Contac t Referred To Contact Cardiology Diagnoses Chest pain, unspecified type Procedures Nuclear Pharmacologic Stress Cardiology (PET CT Mobile) Porsha Mcdaniels MD [facility] [place] [address] [facility] [place] [address] Referral ID Status Reason Start Date Expiration Date Visits Requested Visits Authorized [id number] New Request Specialty Service Requested 07/29/2023 07/28/2024 1 1 Reason for Visit * Consultation (Routine) - Closed Specialty Diagnoses / Procedures Referred By Contac t Referred To Contact Cardiology Diagnoses Heart failure with preserved ejection fraction, unspecified HF chronicity MIN[place]. thorough evaluation performed to date. Jaspreet Kinsey MD [facility] [place] [address] Porsha Mcdaniels MD [facility] [place] [address] Referral ID Status Reason Start Date Expiration Date V isits Requested Visits Authorized [id number] Closed Consult, Test & Treat 06/09/2023 06/08/2024 1 1 Encounter Details Date Type Department Care Team (Late st Contact Info) Description 07/29/2023 8:00 AM EDT Office Visit Cardiology at [address] [address] Porsha Mcdaniels MD [facility] [place] [address] Chest pain, unspecified type Social History Tobacco Use Types Packs/Day Years Used Date Smoking Tobacco: Never Smokeless Tobacco: Never Alcohol Use Standard Drinks/Week Comments Never 0 (1 standard drink = 0.6 oz pur e alcohol) [facility] Utilities Answer Date Recorded In the [...] original note were not included. [facility] [place] [address] Referring Provider: Jaspreet Kinsey MD [facility] [place] [address] Reason for Consultation / Chief Complaint: [place] [...] [place]. She follows with Dr. Kinsey in [place]. She underwent CCTA 09/27 that showed mild disease in her LAD. She also had a cardiac cath in 2019 with normal cors. [facility] due to exertional chest pressure [...] and no concomitant arrhythmias Was admitted to [facility] early last month for malaise, chest pain [...] , Rfl: fluticasone propionate (FLONASE) 50 mcg/actuation [place], Suspension, 1 spray by Each Nare route [...] 2+ radial pulse LUE: 2+ radial pulse INDIRECT SALES REPRESENTATIVE: Normal mentation. Moves all extremities without limitation. [...] Porsha Mcdaniels MD Section of Interventional Cardiology [facility] [place] Manageroracle fusion developer [facility] 07/29/2023 documented in this encounter Plan of Treatment Upcoming Encounters Date Type Department Care Team (Late st Contact Info) Description 10/08/2023 8:30 AM EDT Tech [place] [phone] [place]anning [place] 10/08/2023 9:30 AM EDT Office [place] [phone] MD [facility] [place] [address] 10/21/2023 10:30 AM EDT Appointment [place] [address] Mary Reyes APRN [facility] [place] [place] [address] 10/21/2023 11:30 AM EDT Appointment Nuclear Medicine at [place] [phone] Mary Reyes [facility] [place] [address] 10/21/2023 12:30 PM EDT Appointment [place] [address] [place] [address] 10/21/2023 1:30 PM EDT Appointment [place] [address] [place] [address] 10/21/2023 2:30 PM EDT Appointment [place] [address] [place] [address] 10/26/2023 4:00 PM EDT Office Visit Cardiology at [address] [address] Jaspreet Kinsey MD [facility] [place] [address] 10/28/2023 9:00 AM EDT Office Visit [place] [address] 10/29/2023 10:00 AM EDT Clinical Support [place] [address] 10/29/2023 10:15 AM EDT Procedure [place] [address] 11/01/2023 5:00 PM EDT Office [place] [address] Selene Browning, PhD [facility] [place] [address] 11/22/2023 4:40 PM EDT Office Visit Cardiology at [address] [phone] Porsha Mcdaniels MD [facility] [place] [address] 12/13/2023 10:00 AM EDT Clinical [place] [address] Lucero Romero, ALVA [facility] [place] [address] documented as of this encounter Procedures Procedure Name Priority Date/Time Associated Diagnosis Comments EKG 12-LEAD Routine 07/29/2023 8:47 AM EDT Chest pain, unspecified type documented in this encounter Results * NM PET CT Cardiac Pharmacologic Stress CT Component (08/17/2023 2:38 PM EDT) [employer] WORKSTATION ID [id number] [facility] Anatomical Region Laterality Modality Positron [...] who have questions please contact the health toddler caregiver that requested your imaging first. ? Electronically signed by: Clay Stanton MD, [facility] ([phone]), at 08/18/2023 2:49 PM Narrative 08/18/2023 2:49 [...] PET CT CARDIAC PHARMACOLOGIC STRESS AND REST, [place] PET CTCARDIAC PHARMACOLOGIC STRESS CT COMPONENT CLINICAL [...] Coronary calcifications. Bilateral ground glass opacities are [id number] IMPRESSION Moderate-sized scar in the apical septum [...] patients who have questions please contactthe health toddler caregiver that requested your imaging first. Electronically signed by: Clay Stanton MD, [facility]([phone]), at 08/18/2023 2:49 PM Porsha Mcfarlane MD IM PET ORDERABLES * NM PET CT Cardiac Pharmacologic Stress and Rest (08/17/2023 2:38 PM EDT) WORKSTATION ID [id number] RAD Anatomical Region Laterality Modality Positron Emissio [...] who have questions please contact the health toddler caregiver that requested your imaging first. ? Electronically signed by: Clay Stanton MD, [facility] ([phone]), at 08/18/2023 2:49 PM Narrative 08/18/2023 2:49 [...] Coronary calcifications. Bilateral ground glass opacities are [id number] Procedure Note Clay Stanton MD - 08/18/2023 EXAMINATION: [place] PET CT CARDIAC PHARMACOLOGIC STRESS AND REST, [place] PET CTCARDIAC PHARMACOLOGIC STRESS CT COMPONENT CLINICAL [...] Coronary calcifications. Bilateral ground glass opacities are [id number] IMPRESSION Moderate-sized scar in the apical septum [...] patients who have questions please contactthe health toddler caregiver that requested your imaging first. Electronically signed by: Clay Stanton MD, [facility]([phone]), at 08/18/2023 2:49 PM Porsha Mcfarlane MD [...] (Bezet) 418 ms MUSE SYSTEM Calculated P Moville 6 degrees MUSE SYSTEM Calculated R Moville 34 degrees MUSE SYSTEM Calculated T Moville -73 degrees MUSE SYSTEM INTERPRETATION Sinus bradycardia [...] documented in this encounter Care Teams Medical Lab Scientist Relationship Specialty Start Date End Date Polo Pearce PA [address] [place] [address] PCP - General Internal Medicine 06/09/21 documented as of this encounter
--- OUTSIDE RECORDS SUMMARY | 2023-10-05 17:01 | XMS_ITS | Encounter Summary ---
Author Organization [facility] [place] [address] Care Team Providers Care Pumper Gauger Name Role Phone Polo Pearce Primary Care Provider [phone] Encounter Details Date Type Department Care Team (Late st Contact Info) Description 07/13/2023 Telephone Cardiology at [address] [phone] Sydney Gamez RN Social History Tobacco Use [...] a senior care (including now)? No 06/15/2023 DH IPV Inpatient [...] like the letter [email or web address] when completed. Will forward to her providers [...] appointments: During 8am-5pm Wednesday through Wednesday call [phone] to speak with a nurse in the cardiology clinic All other times call [phone] and ask to speak to the cord splicer air pollution compliance inspector. Return to work: One week Driving: No driving for 48 hours after catheterization. Follow up Appointments: PCP JOCY Franco [phone] 11:30am on July 19. Cardiology office will [...] AM EDT Tech [place] [address] Channing Escobedo [place] 10/08/2023 9:30 AM EDT Office Visit [place] [address] MD [facility] [place] [address] 10/21/2023 10:30 AM EDT Appointment [place] [phone] [place] [address] 10/21/2023 11:30 AM EDT Appointment [place] [address] [place] [address] 10/21/2023 12:30 PM EDT Appointment [place] [address] [place] [address] 10/21/2023 1:30 PM EDT Appointment [place] [address] [place] [address] 10/21/2023 2:30 PM EDT Appointment Nuclear Medicine at [place] [phone] Mary Reyes APRN [facility] [place] [address] 10/26/2023 4:00 PM EDT Office Visit Cardiology at [address] [phone] Jaspreet Kinsey MD [facility] [place] [address] 10/28/2023 9:00 AM EDT Office [place] [address] 10/29/2023 10:00 AM EDT Clinical [place] [address] 10/29/2023 10:15 AM EDT Procedure [place] [address] 11/01/2023 5:00 PM EDT Office Visit Gastroenterology at [place] [phone] Selene Browning, PhD [facility] [place] [address] 11/22/2023 4:40 PM EDT Office Visit Cardiology at [address] [phone] Porsha Mcdaniels MD [facility] [place] [address] 12/13/2023 10:00 AM EDT Clinical Support [place] [address] Lucero Romero, ALVA [facility] [place] [address] documented as of this encounter Visit Diagnoses Not on filedocumented in this encounter Care Teams Pumper Gauger Relationship Specialty Start Date End Date Polo Pearce PA [address] [place] [address] PCP - General Internal Medicine 06/09/21 documented as of this encounter
--- OUTSIDE RECORDS SUMMARY | 2023-10-05 17:01 | XMS_ITS | Encounter Summary ---
Author Organization [facility] Address [facility] [place] [address] Care Team Providers Care Auto Service Station Attendant Name Role Phone Polo Pearce Primary Care Provider [phone] Encounter Details Date Type Department Care Team [...] AM EDT Tech [place] [phone] [place] 10/08/2023 9:30 AM EDT Office [place] [address] MD [facility] [place] [address] 10/21/2023 10:30 AM EDT Appointment [place] [address] aMry Reyes NITROGLYCERIN DISTRIBUTOR [facility] [place] [address] 10/21/2023 11:30 AM EDT Appointment [place] [address] Mary Reyes APRN [facility] [place] [address] 10/21/2023 12:30 PM EDT Appointment [place] [address] Mary Reyes, [place] [address] 10/21/2023 1:30 PM EDT Appointment [place] [address] Mary Reyes NITROGLYCERIN [place] [address] 10/21/2023 2:30 PM EDT Appointment [place] [address] [place] [address] 10/26/2023 4:00 PM EDT Office Visit Cardiology at [address] [phone] Jaspreet Kinsey MD [facility] [place] [address] 10/28/2023 9:00 AM EDT Office [place] [address] 10/29/2023 10:00 AM EDT Clinical [place] [address] 10/29/2023 10:15 AM EDT Procedure [place] [address] 11/01/2023 5:00 PM EDT Office [place] [address] Selene Browning, PhD [facility] [place] [address] 11/22/2023 4:40 PM EDT Office Visit Cardiology at [address] [address] Porsha Mcdaniels MD [facility] [place] [address] 12/13/2023 10:00 AM EDT Clinical [place] [address] [facility] [place] [address] documented as of this encounter Visit Diagnoses Not on filedocumented in this encounter Care Teams Auto Service Station Attendant Relationship Specialty Start Date End Date Polo Pearce PA Sb MOTT [address] [place] [address] PCP - General Internal Medicine 06/09/21 documented as of this encounter
--- OUTSIDE RECORDS SUMMARY | 2023-10-05 17:01 | XMS_ITS | Encounter Summary ---
Author Organization [facility] Address [facility] [place] [address] Care Team Providers Care Rn Recruitment Name Role Phone Polo Pearce Primary Care Provider [phone] Reason for Visit * Reason Comments Congestive Heart Failure Atrial Fibrillation Encounter Details Date Type Department Care Team (Late st Contact Info) Description 07/26/2023 3:20 PM EDT Office Visit Cardiology at [address] [address] Jaspreet Kinsey MD [facility] [place] [address] Heart failure with preserved ejection fraction, unspecified HF chronicity; Paroxysmal atrial fibrillation; SVT (supraventricular tachycardia); Chest pain, unspecified type Social History Tobacco Use Types Packs/Day Years Used Date Smoking Tobacco: Never Smokeless Tobacco: Never Alcohol Use Standard Drinks/Week Comments Never 0 (1 standard drink = 0.6 oz pur e alcohol) [facility] Utilities Answer Date Recorded In the [...] in a senior living (including now)? No 06/15/2023 DH IPV Inpatient [...] Failure Atrial Fibrillation HPI Last seen by in 05/2023, at which time the comprehensive cardiac [...] Oral, DAILY fluticasone propionate (FLONASE) 50 mcg/actuation [place], Suspension 1 spray, Each Nare, PRN gabapentin [...] preserved ejection fraction 05/2021: subacute, presented to [facility] with RUQ pain, weight gain, [...] sarcoid. Anterior scar pattern 06/2023: Admission at [facility] ([facility]). TTE with low-normal EF, though anterior [...] EDT Tech Visit Vascular Lab at [place] [phone] Channing Escobedo [place] 10/08/2023 9:30 AM EDT Office [place] [address] MD [facility] [place] [address] 10/21/2023 10:30 AM EDT Appointment [place] [address] Mary Reyes APRN [facility] [place] [address] 10/21/2023 11:30 AM EDT Appointment [place] [address] Mary Reyes [place] [address] 10/21/2023 12:30 PM EDT Appointment [place] [address] Mary Reyes [place] [address] 10/21/2023 1:30 PM EDT Appointment Nuclear [place] [address] Mary Reyes [place] [address] 10/21/2023 2:30 PM EDT Appointment Nuclear [place] [address] [place] [address] 10/26/2023 4:00 PM EDT Office Visit Cardiology at [address] [phone] Jaspreet Kinsey MD [facility] [place] [address] 10/28/2023 9:00 AM EDT Office Visit [place] [address] 10/29/2023 10:00 AM EDT Clinical Support [place] [address] 10/29/2023 10:15 AM EDT Procedure [place] [address] 11/01/2023 5:00 PM EDT Office [place] [address] Selene Browning, PhD [facility] [place] [address] 11/22/2023 4:40 PM EDT Office Visit Cardiology at [address] [address] Porsha Mcdaniels MD [facility] [place] [address] 12/13/2023 10:00 AM EDT Clinical Support Gastroenterology at [place] [phone] Lucero Romero, AL[place] [facility] [address] documented as of this encounter Visit Diagnoses Diagnosis Heart failure with preserved ejection fraction, unspecified HF chronicity Paroxysmal atrial fibrillation Atrial fibrillation SVT (supraventricular tachycardia) Other specified cardiac dysrhythmias Chest pain, unspecified type documented in this encounter Care Teams Rn Recruitment Relationship Specialty Start Date End Date Polo Pearce PA [address] [place] [address] PCP - General Internal Medicine 06/09/21 documented as of this encounter
--- OUTSIDE RECORDS SUMMARY | 2023-10-05 17:01 | XMS_ITS | Encounter Summary ---
Author Organization [facility] Address [facility] [place] [address] Care Team Providers Care Lumber Straightener Name Role Phone Polo Pearce Primary Care Provider [phone] Encounter Details Date Type Department Care Team (Late st Contact Info) Description 07/12/2023 Refill Cardiology at [address] [place] [phone] Jaspreet Kinsey MD [facility] [place] [address] Social History Tobacco Use Types Packs/Day Years Used Date Smoking Tobacco: Never Smokeless Tobacco: Never Alcohol Use Standard Drinks/Week Comments Never 0 (1 standard drink = 0.6 oz pur e alcohol) [facility] Utilities Answer Date Recorded In the past 12 months has [employer], gas, oil, or water [employer] threatened to shut off services in your [...] mg., 2-2x daily, none left. Patient uses [facility] in [place], [place]. She can be reached @ [phone]. documented in this encounter Plan of Treatment Upcoming Encounters Date Type Department Care Team (Late st Contact Info) Description 10/08/2023 8:30 AM EDT Tech Visit [place] [address] Channing Escobedo [place] 10/08/2023 9:30 AM EDT Office Visit [place] [address] MD [facility] [place] [address] 10/21/2023 10:30 AM EDT Appointment Nuclear Medicine at [place] [phone] [place] [address] 10/21/2023 11:30 AM EDT Appointment [place] [address] [place] [address] 10/21/2023 12:30 PM EDT Appointment [place] [address] Mary Reyes [facility] [place] [address] 10/21/2023 1:30 PM EDT Appointment [place] [address] Mary Reyes [facility] [place] [address] 10/21/2023 2:30 PM EDT Appointment [place] [address] [place] [address] 10/26/2023 4:00 PM EDT Office Visit Cardiology at [address] [phone] Jaspreet Kinsey MD [facility] [place] [address] 10/28/2023 9:00 AM EDT Office [place] [address] 10/29/2023 10:00 AM EDT Clinical [place] [address] 10/29/2023 10:15 AM EDT Procedure [place] [address] 11/01/2023 5:00 PM EDT Office Visit Gastroenterology at [place] [phone] Selene Browning, PhD [facility] [place] [address] 11/22/2023 4:40 PM EDT Office Visit Cardiology at [address] [address] Porsha Mcdaniels MD [facility] [place] [address] 12/13/2023 10:00 AM EDT Clinical Support [place] [address] Lucero Romero, ALVA [facility] [place] [address] documented as of this encounter Visit Diagnoses Diagnosis Heart failure with preserved ejection fraction, unspecified HF chronicity documented in this encounter Care Teams Lumber Straightener Relationship Specialty Start Date End Date Polo Pearce PA [address] [place] [address] PCP - General Internal Medicine 06/09/21 documented as of this encounter
--- OUTSIDE RECORDS SUMMARY | 2023-10-05 17:02 | XMS_ITS | Encounter Summary ---
Author Organization [facility] [place] [address] Care Team Providers Care Manager Primary Care Name Role Phone Polo Pearce Primary Care Provider [phone] Reason for Referral * Consultation (Routine) - Duplicate Referral Specialty Diagnoses / Procedures Referred By Jayant harris Referred To Contact Gastroenterology Diagnoses Mesenteric artery stenosis Terrence Keating MD [facility] [place] [address] [facility] [address] [place] [address] Referral ID Status Reason Start Date Expiration Date Visits Requested Visits Authorized [id number] Duplicate Referral Consult, Test & Treat 07/09/2023 07/08/2024 1 1 * Home Health Care (Routine) - Authorized Specialty Diagnoses / Procedures Referred By Contjulita t Referred To Contact Diagnoses Paroxysmal atrial fibrillation Chest pain, unspecified type Heart failure with preserved ejection fraction, unspecified HF chronicity Terrence Keating MD [facility] [place] [place] [address] Home Health & [address] [place] [address] Referral ID Status Reason Start Date Expiration Date Visits Requested Visits Authorized [id number] Authorized Consult, Test & Treat 07/09/2023 01/05/2024 999 999 Reason for Visit * Auth/Cert (Routine) Specialty Diagnoses / Procedures Referred By Contac t Referred To Contact Diagnoses NSTEMI (non-ST elevated myocardial infarction) NSTEMI Procedures ER IPI Terrence Keating MD [facility] [place] [address] [facility] Referral ID Status Reason Start Date Expiration Date Visits Re quested Visits Authorized [id number] 1 1 Encounter Details Date Type Department Care Team (Latest Contact Info) Description 06/14/2023 11:01 PM EDT - 07/09/2023 4:44 PM EDT Hospital Encounter Heart and Vascular Unit Level 4 [place] [address] Jaspreet Kinsey MD [facility] [place] [address] Lino Calles MD [facility] [place] [address] Eufemia Copeland MD [facility] [place] [address] Ailyn Irvin MD [facility] [place] [address] Terrence Keating MD [facility] [place] [address] Paroxysmal atrial fibrillation; Chest pain, unspecified type; [...] Loida Roque Patient Age: 53 y.o. Language: Kosovan Race: White Ethnicity: Not nor Admit date: 06/14/2023 Discharge date and time: 07/09/2023 3:31 PM Attending Physician: Terrence Keating MD Discharge Physician: Terrence Keating MD Follow-up Recommendations for Providers: Inpatient Provider Contact Information: For questions regarding this document or issues relating to this hospitalization on the Medical Service, please contact your inpatient physician through the [facility] . Issues afterhours and on weekends will [...] who have questions please contact the health adult daycare coordinator that requested your imaging first. Electronically signed by: Wilton Cabrera MD, [facility] ([phone]), at 06/17/2023 5:[address] Abdomen & [...] who have questions please contact the health adult daycare coordinator that requested your imaging first. Chest One [...] who have questions please contact the health adult daycare coordinator that requested your imaging first. Abdomen Limited (Exam End: 06/28/2023 12:22 PM) Result Value WORKSTATION ID [id number] Narrative Abdominal (Signed Final 06/28/2023 02:08 pm) PATIENT INFO: ID #: [id number] : [birth year] (53 yrs)(F) Name: LOIDA Visit Date: 06/28/2023 12:20 pm ROHAN PERFORMED BY: Attending: Sigrid Owens MD Resident: Rafaela Huddleston MD Performed By: Deena Cabrera RDMS Referred By: AILYN IRVIN Location: [place] SERVICE(S) PROVIDED: UABDLIM - Abdominal Limited Survey Single 8[address] Organ or Quadrant - [id number] INDICATIONS: RUQ pain, R/o Gall bladder colic, [...] Sigrid Owens MD, [facility] ([phone]), at 06/28/2023 2:02 PM Thank you for letting us participate in the care of this patient. If you are a health care provider and have any questions regarding this report, please contact the number above. For patients who have questions, please contact the health adult daycare coordinator that requested your imaging first. Sigrid Owens, [facility] Spa Receptionist Electronically Signed Final Report 06/28/2023 02:08 pm [...] anesthetic: 10 cc 1% lidocaine Heparin: Yes 31616 Units Protamine: No mg Antibiotics: Ancef Fluoro [...] We exchanged the sheath for a 7 Luxembourger river rafting guide steerable sheath over a stiff wire. A Glidewire and Kumpe catheter were used to selectively cannulate the superior mesenteric artery. Direct angiography of the superior mesenteric artery was performed, confirming the results of the nonselective aortography performed. The lesion was predilated with a 4 mm x 40 mm [place] balloon, and then a 6 mm X [...] 07/03/2023 3:18 PM) Result Value WORKSTATION ID [id number] Narrative EXAMINATION: XR CHEST ONE VIEW CLINICAL [...] who have questions please contact the health adult daycare coordinator that requested your imaging first. Echocardiogram from [...] The patient was recently admitted at [facility] from 04/16/23 to 04/19/2023 as a transfer from [facility] due to exertional chest pressure [...] patient was accepted for transfer to [facility]. Brief Summary: Loida Roque is a 53 [...] positive cardiac markers. Patient transferred to [facility] for further work-up and evaluation. On arrival, [...] Administered Date(s) Administered Moderna Covid-19 Monovalent 12Yr+ (Oil Well Cable Tool Driller 100mcg) 03/06/2020, 04/03/2020 Discharge Medications: Your Medications [...] weight gain + increasing shortness of breath. [id number] minutes prior to a dose of torsemide). [...] appointments: During 8am-5pm Wednesday through Wednesday call [phone] to speak with a nurse in the cardiology clinic All other times call [phone] and ask to speak to the foundry manager forest fire control officer. Return to work: One week Driving: No driving for 48 hours after catheterization. Follow up Appointments: PCP JOCY Franco [phone] 11:30am on July 19. Cardiology office will call you regarding your appointment with Dr. Kinsey. General Instructions None Future Appointments and Orders Future Appointments and Orders Future Appointments Provider Department Dept Phone 07/26/2023 3:20 PM Jaspreet Kinsey MD Cardiology at [place] Arrive at: [facility] [address] [phone] 07/29/2023 8:00 AM Porsha Mcdaniels MD Cardiology at [facility] Arrive at: Senior Fire Protection Engineer Area [address] [phone] 08/03/2023 8:30 AM Eladio Boyer Vascular Lab at [facility] Arrive at: Senior Fire Protection Engineer Area 3V [phone] 08/03/2023 9:30 AM Judith Butler APRN Vascular Surgery at [facility] Arrive at: Senior Fire Protection Engineer Area 3V [phone] 09/02/2023 2:40 PM Jaspreet Kinsey MD Cardiology at [place] Arrive at: [facility] [address] [phone] Discharge References/Attachments None Greater than 30 minutes was spent on this discharge including documentation, [id number] time withthe patient, patient education, repair order clerk, coordination with pharmacy and other [...] appointments: During 8am-5pm Wednesday through Wednesday call [phone] to speak with a nurse in the cardiology clinic All other times call [phone] and ask to speak to the foundry manager forest fire control officer. Return to work: One week Driving: No driving for 48 hours after catheterization. Follow up Appointments: PCP JOCY Franco [phone] 11:30am on July 19. Cardiology office will [...] as needed. fluticasone propionate (FLONASE) 50 mcg/actuation [place], Suspension 1 spray by Each Nare route [...] 4pm, per the team. Please refer to: [facility] [address] [place] [address] PHONE: [phone] FAX: [phone] *For RN RICARDO: 07/09/23 Nani Mendoza MSN-Ed, RN ACM Cardiac Research Nurse and Neuro/Neurocrit/ENT Supervisor Shaving [employer] Splitting. * Mary Castaneda RCP - 07/09/2023 4:37 [...] with NIV Mary Castaneda RCP * Heidy Parsi RN - 07/08/2023 5:49 PM EDT OUTCOME [...] 1:00 PM EDT [facility] 2 - [facility] DAILY PROGRESS NOTE Page [phone] to reach a provider 28/09 Admit Date: [...] positive cardiac markers. Patient transferred to [facility] for further work-up and evaluation. Presented with [...] Diet: Daily Healthy Menu Choices/Cardiac diet ([facility]-Diet) DVT Prophylaxis: DOAC heparin gtt. 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 Patient transferred to [facility] for further work-up and evaluation. Presented with [...] Score: 24 PT: OT: PCP JOCY Franco [phone] Terrence Keating MD 07/07/2023 * Terrence Keating MD - 07/06/2023 11:00 AM EDT [facility] 2 - [facility] DAILY PROGRESS NOTE Page [phone] to reach a provider 28/09 Admit Date: [...] positive cardiac markers. Patient transferred to [facility] for further work-up and evaluation. Presented with [...] Diet: Daily Healthy Menu Choices/Cardiac diet ([facility]-Diet) NPO diet (Give Meds) DVT Prophylaxis: DOAC Code status: Attempt Cardiopulmonary Resuscitation - Inpatient Disposition: Discharge Location: AM-PAC Basic Mobility Raw Score: 24 PT: OT: PCP JOCY Franco [phone] Terrence Keating MD 07/06/2023 * Ana Paula [...] 11:00 AM EDT [facility] 2 - [facility] DAILY PROGRESS NOTE Page [phone] to reach a provider 28/09 Admit Date: [...] positive cardiac markers. Patient transferred to [facility] for further work-up and evaluation. Presented with [...] Diet: Daily Healthy Menu Choices/Cardiac diet ([facility]-Diet) DVT Prophylaxis: DOAC Code status: Attempt Cardiopulmonary Resuscitation - Inpatient Disposition: Discharge Location: AM-[facility] Basic Mobility Raw Score: 24 PT: OT: PCP JOCY Franco [phone] Terrence Keating MD 07/05/2023 * Lino Calles MD - 07/04/2023 9:09 AM EDT [facility] 2 - [facility] DAILY PROGRESS NOTE Page [phone] to reach a provider 28/09 Admit Date: [...] positive cardiac markers. Patient transferred to [facility] for further work-up and evaluation. On arrival, [...] Diet: Daily Healthy Menu Choices/Cardiac diet ([facility]-Diet) DVT Prophylaxis: DOAC Code status: Attempt Cardiopulmonary Resuscitation - Inpatient Disposition: Discharge Location: AM-PAC Basic Mobility Raw Score: 24 PT: OT: PCP JOCY Franco [phone] Lino Calles MD 07/04/2023 * Ana Paula [...] 8:59 AM EDT [facility]IST 2 - [facility] DAILY PROGRESS NOTE Page [phone] to reach a provider 28/09 Admit Date: [...] positive cardiac markers. Patient transferred to [facility] for further work-up and evaluation. On arrival, [...] Diet: Daily Healthy Menu Choices/Cardiac diet ([facility]-Diet) DVT Prophylaxis: DOAC Code status: Attempt Cardiopulmonary Resuscitation - Inpatient Disposition: Discharge Location: AM-PAC Basic Mobility Raw Score: 24 PT: OT: PCP JOCY Franco [phone] Lino Calles MD 07/03/2023 * Van Muse [...] 9:55 AM EDT [facility] 2 - [facility] DAILY PROGRESS NOTE Page [phone] to reach a provider 28/09 Admit Date: [...] positive cardiac markers. Patient transferred to [facility] for further work-up and evaluation. On arrival, [...] Diet: Daily Healthy Menu Choices/Cardiac diet ([facility]-Diet) DVT Prophylaxis: DOAC Code status: Attempt Cardiopulmonary Resuscitation - Inpatient Disposition: Discharge Location: AM-PAC Basic Mobility Raw Score: 24 PT: OT: PCP JOCY Franco [phone] Lino Calles MD 07/02/2023 * Jaspreet Griffith [facility] - 07/02/2023 6:35 AM EDT Respiratory [...] 7:39 AM EDT [facility]IST 2 - [facility] DAILY PROGRESS NOTE Page [phone] to reach a provider 28/09 Admit Date: [...] positive cardiac markers. Patient transferred to [facility] for further work-up and evaluation. On arrival, [...] Diet: Daily Healthy Menu Choices/Cardiac diet ([facility]-Diet) NPO diet (Give Meds) DVT Prophylaxis: DOAC Code status: Attempt Cardiopulmonary Resuscitation - Inpatient Disposition: Discharge Location: AM-PAC Basic Mobility Raw Score: 24 PT: OT: PCP JOCY Franco [phone] Terrence Keating MD 07/01/2023 * Terrence Keating MD - 06/30/2023 8:00 AM EDT [facility] 2 - [facility] DAILY PROGRESS NOTE Page [phone] to reach [...] positive cardiac markers. Patient transferred to [facility] for further work-up and evaluation. On arrival, [...] Score: 24 PT: OT: PCP JOCY Franco [phone] Terrence Keating MD 06/30/2023 * Terrence Keating MD - 06/29/2023 4:29 PM EDT [facility] 2 - [facility] DAILY PROGRESS NOTE Page [phone] to reach a provider 28/09 Admit Date: [...] positive cardiac markers. Patient transferred to [facility] for further work-up and evaluation. On arrival, [...] Score: 24 PT: OT: PCP JOCY Franco [phone] Terrence Keating MD 06/29/2023 * Jo Ann Sharpe - 06/29/2023 2:54 PM EDT Nutrition Services Note - Low Nutrition Acuity Loida Roque is a 53 y.o. female Reason for intervention: follow up Nutrition Plan: Continue current diet. Encourage good PO intake. Spironolactone noted. Abdominal pain after eating noted. Encouragement and support provided. Pt screened for follow-up visit and blog writer met with Pt at bedside. Pt [...] consulted in the interim. Jo Ann Sharpe Core Cutter * Mary Castaneda RCP - 06/29/2023 3:55 [...] 1:53 PM EDT [facility]IST 2 - [facility] DAILY PROGRESS NOTE Page [phone] to reach a provider 28/09 Admit Date: [...] positive cardiac markers. Patient transferred to [facility] for further work-up and evaluation. On arrival, [...] Score: 24 PT: OT: PCP JOCY Franco [phone] * Ailyn Irvin MD - 06/27/2023 9:40 AM EDT [facility] H[facility]PITALIST 2 - [facility] DAILY PROGRESS NOTE Page [phone] to reach a provider 28/09 Admit Date: [...] positive cardiac markers. Patient transferred to [facility] for further work-up and evaluation. On arrival, [...] Score: 24 PT: OT: PCP JOCY Franco [phone] * Ailyn Irvin MD - 06/26/2023 12:42 PM EDT [facility] H[facility]PITALIST 2 - [facility] DAILY PROGRESS NOTE Page [phone] to reach a provider 28/09 Admit Date: [...] positive cardiac markers. Patient transferred to [facility] for further work-up and evaluation. On arrival, [...] Score: 24 PT: OT: PCP JOCY Franco [phone] * Mitali Manuel [facility] - 06/26/2023 5:43 AM EDT Respiratory Therapy [...] 1:39 PM EDT [facility] H[facility]PITALIST 2 - [facility] DAILY PROGRESS NOTE Page [phone] to reach a provider 28/09 Admit Date: [...] positive cardiac markers. Patient transferred to [facility] for further work-up and evaluation. On arrival, [...] Score: 24 PT: OT: PCP JOCY Franco [phone] * Edith Chandler RCP - 06/24/2023 10:40 [...] 4:38 PM EDT CV H[facility]PITALIST 2 - [facility] DAILY PROGRESS NOTE Page [phone] to reach a provider 28/09 Admit Date: [...] and SVT ablation on 04/01/[address] [place], paroxysmal A-fib (diagnosed on 10/20/2022), HFpEF, pulmonary emboli on Eliquis, and restrictive lung disease secondary to obesity who presented to OSH with chest pain. Patient has recently undergone extensive workup for ACS that has been unrevealing. 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 The patient current presentation is different with positive cardiac markers. Patient transferred to [facility] for further work-up and evaluation. On arrival, [...] Score: 24 PT: OT: PCP JOCY Franco [phone] * Aaron Rosado RCP - 06/24/2023 1:55 [...] 1:03 PM EDT [facility] H[facility]PITALIST 2 - [facility] DAILY PROGRESS NOTE Page [phone] to reach a provider 28/09 Admit Date: [...] positive cardiac markers. Patient transferred to [facility] for further work-up and evaluation. On arrival, [...] Score: 24 PT: OT: PCP JOCY Franco [phone] * Ciera Valdovinos, ALVA - 06/22/2023 2:38 PM EDT Nutrition Services Note - Low Nutrition Acuity Loida Roque is a 53 y.o. female Reason for intervention: hospital day 9 Nutrition Plan: Cardiac Diet Record % PO intake Monitor weight - diuresis noted Patient screened for hospital length of stay nutrition visit, blog writer met with Loida at bedside. Loida reports excellent appetite, eating 100% of meals. She notes that she has not skipped any meals inpatient and has no current nutrition related questions. She notes UBW 217-218 lbs and says that current weight is higher than normal for her. Diuresis noted. Active Orders Diet Daily Healthy Menu Choices/Cardiac diet ([facility]-Diet) Frequency: Effective Now Number of [...] 1:35 PM EDT [facility] H[facility]PITALIST 2 - [facility] DAILY PROGRESS NOTE Page [phone] to reach a provider 28/09 Admit Date: [...] who have questions please contact the health adult daycare coordinator that requested your imaging first. Chest One View (Exam End: 06/22/2023 11:42 AM) Impression No acute pulmonary findings Thank you for letting us participate in the care of this patient. If you are a health care provider and have any questions regarding this report, please contact the number below. For patients who have questions please contact the health adult daycare coordinator that requested your imaging first. Assessment: Loida [...] positive cardiac markers. Patient transferred to [facility] for further work-up and evaluation. On arrival, [...] Diet: Daily Healthy Menu Choices/Cardiac diet ([facility]-Diet) DVT Prophlaxis: eliquis Code status: Attempt Cardiopulmonary Resuscitation - Inpatient Disposition: Discharge Planning: AM-PAC Basic Mobility Raw Score: 24 PT: OT: PCP JOCY Franco [phone] * Eufemia Copeland MD - 06/21/2023 11:02 AM EDT CV HOSPITALIST 2 - [facility] DAILY PROGRESS NOTE Page [phone] to reach a provider 28/09 Admit Date: [...] positive cardiac markers. Patient transferred to [facility] for further work-up and evaluation. On arrival, [...] Diet: Daily Healthy Menu Choices/Cardiac diet ([facility]-Diet) DVT Prophlaxis: eliquis Code status: Attempt Cardiopulmonary Resuscitation - Inpatient Disposition: Discharge Planning: AM-PAC Basic Mobility Raw Score: 24 PT: OT: PCP JOCY Franco [phone] * Eufemia Copeland MD - 06/20/2023 8:06 AM EDT CV HOSPITALIST 2 - [facility] DAILY PROGRESS NOTE Page [phone] to reach a provider 28/09 Admit Date: [...] positive cardiac markers. Patient transferred to [facility] for further work-up and evaluation. On arrival, [...] Diet: Daily Healthy Menu Choices/Cardiac diet ([facility]-Diet) DVT Prophlaxis: eliquis Code status: Attempt Cardiopulmonary Resuscitation - Inpatient Disposition: Discharge Planning: AM-PAC Basic Mobility Raw Score: 24 PT: OT: PCP JOCY Franco [phone] * Eufemia Copeland MD - 06/19/2023 10:00 AM EDT CV HOSPITALIST 2 - [facility] DAILY PROGRESS NOTE Page [phone] to reach a provider 28/09 Admit Date: [...] positive cardiac markers. Patient transferred to [facility] for further work-up and evaluation. On arrival, [...] Diet: Daily Healthy Menu Choices/Cardiac diet ([facility]-Diet) DVT Prophlaxis: eliquis Code status: Attempt Cardiopulmonary Resuscitation - Inpatient Disposition: Discharge Planning: AM-PAC Basic Mobility Raw Score: 24 PT: OT: PCP JOCY Franco [phone] * Eufemia Copeland MD - 06/18/2023 9:02 AM EDT CV HOSPITALIST 2 - [facility] DAILY PROGRESS NOTE Page [phone] to reach a provider 28/09 Admit Date: [...] positive cardiac markers. Patient transferred to [facility] for further work-up and evaluation. On arrival, [...] Diet: Daily Healthy Menu Choices/Cardiac diet ([facility]-Diet) DVT Prophlaxis: eliquis Code status: Attempt Cardiopulmonary Resuscitation - Inpatient Disposition: Discharge Planning: AM-PAC Basic Mobility Raw Score: 24 PT: OT: PCP JOCY Franco [phone] * Eufemia Copeland MD - 06/17/2023 12:02 PM EDT CV HOSPITALIST 2 - [facility] DAILY PROGRESS NOTE Page [phone] to reach a provider 28/09 Admit Date: [...] positive cardiac markers. Patient transferred to [facility] for further work-up and evaluation. On arrival, [...] Diet: Daily Healthy Menu Choices/Cardiac diet ([facility]-Diet) DVT Prophlaxis: eliquis Code status: Attempt Cardiopulmonary Resuscitation - Inpatient Disposition: Discharge Planning: AM-PAC Basic Mobility Raw Score: 24 PT: OT: PCP JOCY Franco [phone] * Calista Hernandez RT - 06/17/2023 4:36 [...] 3:25 PM EDT CV HOSPITALIST 2 - [facility] DAILY PROGRESS NOTE Page [phone] to reach a provider 28/09 Admit Date: [...] positive cardiac markers. Patient transferred to [facility] for further work-up and evaluation. On arrival, [...] Diet: Daily Healthy Menu Choices/Cardiac diet ([facility]-Diet) DVT Prophlaxis: eliquis Code status: Attempt Cardiopulmonary Resuscitation - Inpatient Disposition: Discharge Planning: AM-PAC Basic Mobility Raw Score: 24 PT: OT: PCP JOCY Franco [phone] documented in this encounter H&P Notes * [...] The patient was recently admitted at [facility] from 04/16/23 to 04/19/2023 as a transfer from [facility] due to exertional chest pressure [...] patient was accepted for transfer to [facility]. 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 fluticasone propionate (FLONASE) 50 mcg/actuation [place], Suspension 1 spray by Each Nare route [...] if hypotensive / cardiogenic shock / inferior PA / sildenafil within past 24 hours) - [...] for discharge to home with family support, [place] [facility] for RN and OP Cardi clinic for f/u. Needs for Transition of Care: Plan for discharge is: Home w/ Services Outpatient Agency/Support Group Needs: None Home Health Services: Registered Nurse Agency Referrals & Follow-up Care: Contact information for follow-up Home Health & Hospice, [place] [address] [place] [address] Transportation: taxi voucher -Ride confirmed entrance #2 [...] none Patient is insured through: Primary Insurance: [employer] [place] Pay[place] [employer] [place] / Plan[place] / Product Type: *No Product type* / Secondary Insurance: N/A Prescription Coverage: Yes This plan was formulated with input from patient, (please identify family/friend involved if applicable) and team. All are in agreement with plan. Nani Mendoza MSN-Ed, RN ACM Cardiac Research Nurse and Neuro/Neurocrit/ENT Supervisor Shaving And Splitting. * Care Management - Dixie Patterson - 07/09/2023 1:38 PM EDT Transportation for discharge was scheduled and confirmed through [employer]. [employer] will have a p d driver here at entrance #2 @4pm to [...] Visceral Aorta 80 16 Celiac Artery, Proximal Page-Biphasic 119 26 Celiac Artery, Mid Page-Biphasic 115 21 Celiac Artery, Distal No Vis Sup Mes Artery Proximal Biphasic 427 91 Sup Mes Artery Middle Page-Biphasic 100 17 Sup Mes Artery Distal Page-Biphasic 64 15 Hepatic Artery No Vis Splenic [...] sign off at this time, please page [phone] with any questions or concerns. Discussed with [...] Visceral Aorta 80 16 Celiac Artery, Proximal Page-Biphasic 119 26 Celiac Artery, Mid Page-Biphasic 115 21 Celiac Artery, Distal No Vis Sup Mes Artery Proximal Biphasic 427 91 Sup Mes Artery Middle Page-Biphasic 100 17 Sup Mes Artery Distal Page-Biphasic 64 15 Hepatic Artery No Vis Splenic [...] duplex Discussed with Dr. Kamara. Please page [phone] with any questions or concerns. 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 At [place], patient should be strict NPO. The plan as outlined above was discussed with Dr. Villa. Recommendations were discussed with primary team. Sis Keenan M.D. Fellow in Gastroenterology and Hepatology Pager #[phone] 07/06/2023 Associated attestation - Lashonda Villa MD [...] Lashonda Villa MD Gastroenterology and hepatology Pager: [phone] * Plan of Care - Olive Hernandez [...] Visceral Aorta 80 16 Celiac Artery, Proximal Page-Biphasic 119 26 Celiac Artery, Mid Page-Biphasic 115 21 Celiac Artery, Distal No Vis Sup Mes Artery Proximal Biphasic 427 91 Sup Mes Artery Middle Page-Biphasic 100 17 Sup Mes Artery Distal Page-Biphasic 64 15 Hepatic Artery No Vis Splenic [...] duplex Discussed with Dr. Kamara. Please page [phone] with any questions or concerns. Gauri Vega [...] Visceral Aorta 80 16 Celiac Artery, Proximal Page-Biphasic 119 26 Celiac Artery, Mid Page-Biphasic 115 21 Celiac Artery, Distal No Vis Sup Mes Artery Proximal Biphasic 427 91 Sup Mes Artery Middle Page-Biphasic 100 17 Sup Mes Artery Distal Page-Biphasic 64 15 Hepatic Artery No Vis Splenic [...] ASA) Discussed with Dr. Kamara. Please page [phone] with any questions or concerns. Gauri Vega [...] Visceral Aorta 80 16 Celiac Artery, Proximal Page-Biphasic 119 26 Celiac Artery, Mid Page-Biphasic 115 21 Celiac Artery, Distal No Vis Sup Mes Artery Proximal Biphasic 427 91 Sup Mes Artery Middle Page-Biphasic 100 17 Sup Mes Artery Distal Page-Biphasic 64 15 Hepatic Artery No Vis Splenic [...] 07/02/[address] Kamara. Please page [phone] with any questions or concerns. Gauri Vega [...] Visceral Aorta 80 16 Celiac Artery, Proximal Page-Biphasic 119 26 Celiac Artery, Mid Page-Biphasic 115 21 Celiac Artery, Distal No Vis Sup Mes Artery Proximal Biphasic 427 91 Sup Mes Artery Middle Page-Biphasic 100 17 Sup Mes Artery Distal Page-Biphasic 64 15 Hepatic Artery No Vis Splenic [...] tonight Discussed with Dr. Kamara. Please page [phone] with any questions or concerns. Gauri Vega [...] Visceral Aorta 80 16 Celiac Artery, Proximal Page-Biphasic 119 26 Celiac Artery, Mid Page-Biphasic 115 21 Celiac Artery, Distal No Vis Sup Mes Artery Proximal Biphasic 427 91 Sup Mes Artery Middle Page-Biphasic 100 17 Sup Mes Artery Distal Page-Biphasic 64 15 Hepatic Artery No Vis Splenic [...] Visceral Aorta 80 16 Celiac Artery, Proximal Page-Biphasic 119 26 Celiac Artery, Mid Page-Biphasic 115 21 Celiac Artery, Distal No Vis Sup Mes Artery Proximal Biphasic 427 91 Sup Mes Artery Middle Page-Biphasic 100 17 Sup Mes Artery Distal Page-Biphasic 64 15 Hepatic Artery No Vis Splenic [...] PA - 06/28/2023 8:52 AM EDT [facility] Department of Cardiology Consult Progress Note Reason [...] consultation required. JOCY Langston-C Cardiovascular Medicine Pager [phone] 06/28/2023 Associated attestation - Klarissa Henderson MD [...] slight decrease in LV systolic function. Assessment: Lodia Roque is a 53 y.o. female admitted [...] MD - 06/24/2023 2:14 PM EDT [facility] Department of Cardiology Consult Progress Note Reason [...] if further consultation required. Alejandro Tellez MD Bilingual Call Center Representative [phone] Associated attestation - Willy Gómez MD [...] other (see comments) (Has CPAP provided through [employer]) DME Needed at Discharge: No Patient is insured through: Primary Insurance: [employer] / [place] / [...] of Discharge: 06/26/2023 BEA Killian, RN Inpatient Molding Cutter- Cardiology Office of Care Management Pager #: [phone] * Plan of Care - Alejandro Davenport [...] Goal: Plan of Care Review 06/22/20231842 by Paraidse Paz RN Outcome: Ongoing (Interventions Implemented as [...] Loida Roque at the request of Dr. 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 fluticasone propionate (FLONASE) 50 mcg/actuation [place], Suspension 1 spray by Each Nare route [...] No Patient is insured through: Primary Insurance[place] [employer] [employer] / [place] / [...] Implemented as Appropriate) 06/19/2023 0246 by Aaron aCban RN Outcome: Ongoing (Interventions [...] other (see comments) (Has CPAP provided through [employer]) DME Needed at Discharge: No Patient is insured through: [place]: [place] [employer] / [place] / Product Type: *No Product type* / Secondary Insurance: N/A Plan for discharge is: Home w/o Services Outpatient Agency/Support Group Needs: None Agency Referrals: Not Applicable at this time. Transportation: taxi voucher Barriers to discharge: Discharge planning Plan going forward: [place] to [place] with family without services once medically ready. Care Management will continue to follow and assist with discharge planning and coordination of careas indicated. Anticipated Date of Discharge: 06/19/2023 BEA Killian, RN Inpatient Molding Cutter- Cardiology Office of Care Management Pager #: [phone] * Plan of Care - Olive Hernandez [...] COVID test: Lab Results Component Value Date [id number] Not Detected 06/13/2021 Past medical History: Past [...] In the past 12 months has the [employer], gas, oil, or water [place] threatened to shut off services in your [...] other (see comments) (Has CPAP provided through [employer]) [address] [address] Social & Family Supports: All names listed [...] Specific Information: Has a CPAP provided by [facility] [employer] [facility]/Prescription Coverage: Primary Insurance: [place] / [place] / Product Type: *No Product type* / Secondary Insurance: N/A ; Prescription Coverage: Yes Preferred Pharmacy: [facility] [phone] [address] [place] Status: Patient is a : No Primary Care Provider confirmed: JOCY Franco [phone] Patient/Caregiver Goals of Treatment: To figure out what is wrong Potential Needs for Transition of Care: other (see comments) ([facility] angycal help) Agency Referrals: Not Applicable Transportation: no concerns Transportation Anticipated: agency ( can not drive , mother does not drive , Son does not have a car) Concerns to be Addressed: discharge planning Assessment: Patient is admitted to [facility] service for Chest pain Plan: May need [...] planning. Office of Care Management Float / mushroom sorter grader electrophysiologist [email or web address] Pager #[phone] * Consult Note - Jackie Batres MD - 06/15/2023 11:04 AM EDT [facility] Department of Cardiology Initial Consult Note Patient: [...] her case. 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 monitoring for arrhythmia, though unlikely, is possible [...] AM EDT Tech [place] [address] [place] 10/08/2023 9:30 AM EDT Office Visit [place] [phone] MD [facility] DR VASCULAR SURGERY [place], [place] [id number] 10/21/2023 10:30 AM EDT Appointment Nuclear Medicine at [address] [facility] [place] [address] 10/21/2023 11:30 AM EDT Appointment Nuclear Medicine at [address] [facility] [place] [address] 10/21/2023 12:30 PM EDT Appoint[place] [phone] [address] [facility] [place] [address] 10/21/2023 1:30 PM EDT Appointment Nuclear Medicine at [place] [phone] Mary Reyes [facility] [place] [address] 10/21/2023 2:30 PM EDT [place] [address] Mary Reyes [facility] [place] [address] 10/26/2023 4:00 PM EDT Office Visit Cardiology at [address] [phone] Jaspreet Kinsey MD [facility] [place] [address] 10/28/2023 9:00 AM EDT Office Visit [place] [address] 10/29/2023 10:00 AM EDT Clinical Support [place] [address] 10/29/2023 10:15 AM EDT Procedure visit [place] [address] 11/01/2023 5:00 PM EDT Office Visit [place] [phone] Selene Browning, PhD [facility] [place] [address] 11/22/2023 4:40 PM EDT Office Visit Cardiology at [address] [phone] Porsha Mcdaniels MD [facility] [place] [address] 12/13/2023 10:00 AM EDT Clinical Support [place] [address] [facility] [place] [place] [address] Scheduled Orders Name Type Priority Associated Diagnoses [...] Routine 07/07/2023 2:25 PM EDT Colonoscopy, Biopsy ([id number]) 07/07/2023 2:10 PM EDT post prandial pain Upper Gi Endoscopy, Biopsy ([id number]) 07/07/2023 2:10 PM EDT post prandial pain [...] Metabolic Panel (non-fasting) (08/25/2023 11:28 AM EDT) [facility] Signature Glucose Lvl 111 65 - 199 mg/dL [facility] Comment:Diabetes: >=200 mg/d L plus symptoms BUN 29(H) 8 - 18 mg/dL [facility] mmol/L [facility] CO2 29 22 - 31 mmol/L [facility] [...] In Lab Terrence Keating MD CHEMISTRY ORDERABLES [facility] [place] [address] * Differential, Automated (07/09/2023 3:03 AM EDT) Neutrophils % 51.4 % [facility] Neutr Abs (ANC) 3.43 1.70 - 6.10 x10(3)/[facility] Lymphocytes % 31.4 % [facility] Lymphocytes Abs 2.1 0.9 - 3.2 x10(3)/[facility] Monocytes % 10.1 % [facility] Monocyte Abs 0.7 0.3 - 0.9 x10(3)/[facility] Eosinophils % 6.0 % [facility] Eosinophils Abs 0.4 0.0 - 0.4 x10(3)/[facility] Basophils % 0.8 % [place] [...] 0.04 x10(3)/[facility] Blood 07/09/2023 3:03 AM EDT 07/09/2023 3:14 AM EDT Narrative Resulting Agency Comment Spec In Lab Terrence Keating MD HEMATOLOGY ORDERABLE S [facility] [place] [address] * (ABNORMAL) Hemogram (07/09/2023 3:03 AM EDT) Pathologist [facility] WBC 6.7 4.0 - 9.5 x10(3)/[facility] RBC 3.87(L) 4.00 - 5.21 x10(6)/[facility] Hemoglobin 12.4 11.7 - 15.5 g/dL [facility] Hematocrit 36.8 35.7 - 45.8 % [facility] MCV 95.1(H) 82.6 - 94.4 [facility] MCH 32.0 27.1 - 32.0 pg [facility] MCHC 33.7 31.7 - 35.0 g/dL [facility] Platelets 209 145 - 357 x10(3)/[facility] RDWSD 47.9(H) 37.0 - 46.0 [facility] RDWCV 13.7 11.5 - 14.1 % [facility] MPV 10.5 7.6 - 12.9 [facility] nRBC % Auto 0.0 % [facility] nRBC Abs Auto 0.000 0.000 - 0.000 x10(3)/[facility] Blood 07/09/2023 3:03 AM EDT 07/09/2023 3:14 AM EDT Narrative Resulting Agency Comment Spec In Lab Terrence Keating MD HEMATOLOGY ORDERABLE S [facility] [place] [address] * Heparin (unfractionated) Level (07/09/2023 3:03 AM EDT) Heparin UFH Level 0.52 IU/mL [facility] [...] Lab Ailyn Irvin MD HEMATOLOGY ORDERABLE S [facility] [place] [address] * (ABNORMAL) Basic Metabolic Panel (non-fasting) (07/09/2023 3:03 AM EDT) Glucose Lvl 100 65 - 199 mg/dL [facility] Comment:Diabetes: >=200 mg/d L plus symptoms BUN 12 8 - 18 mg/dL [facility] Creatinine 1.24(H) 0.70 - 1.20 mg/dL [facility] Sodium 138 135 - 145 mmol/L [facility] Potassium 4.2 3.5 - 5.0 mmol/L [facility] Comment: Please note: ??Patients with WBC >100,000 may have falsely elevated Potassium levels. ??For accurate Potassium quantification in these patients send serum separator tube (gold top) for subsequent determinations. ??Contact the Clinical Chemistry Laboratory if there are any questions. Chloride 104 98 - 107 mmol/L [facility] CO2 22 22 - 31 mmol/L [facility] Anion Gap 12 5 - 15 mmol/L [facility] Calcium 9.3 8.5 - 10.5 mg/dL [facility] Estimated GFR 52(L) >=60 mL/min/1. 73 m?? [facility] [...] MD CHEMISTRY ORDERABL ES Performing Organization Address [facility] Co de Phone Number [facility] [place] [address] * Phosphorus (07/09/2023 3:03 AM EDT) Phosphorus 4.5 2.5 - 4.5 mg/dL [facility] Blood 07/09/2023 3:03 AM EDT 07/09/2023 3:14 AM EDT Narrative Resulting Agency Comment Spec In Lab Eufemia Copeland MD CHEMISTRY ORDERABL ES Performing Organization Address [facility] Co de Phone Number [facility] [place] [address] * Magnesium (07/09/2023 3:03 AM EDT) Magnesium 0.91 0.69 - 1.07 mmol/L [facility] Blood 07/09/2023 3:03 AM EDT 07/09/2023 3:14 AM EDT Narrative Resulting Agency Comment Spec In Lab Eufemia Copeland MD CHEMISTRY ORDERABL ES Performing Organization Address [facility] Co de Phone Number [facility] [place] [address] * Heparin (unfractionated) Level (07/08/2023 12:02 PM EDT) Heparin UFH Level 0.45 IU/mL [facility] Comment: [...] [facility]/ZIP Co de Phone Number [facility] [place] [address] * EKG 12 Lead (07/08/2023 9:58 AM EDT) Ventricular rate 66 BPM MUSE SYSTEM Atrial Rate 66 BPM MUSE SYSTEM P-R Interval 178 ms MUSE SYSTEM QRS Duration 92 ms MUSE SYSTEM Q-T Interval 486 ms MUSE SYSTEM QTC Calculated (Bezet) 509 ms MUSE SYSTEM Calculated P [place] 29 degrees MUSE SYSTEM Calculated R [place] 33 degrees MUSE SYSTEM Calculated T [place] 29 degrees MUSE SYSTEM INTERPRETATION Normal sinus rhythm Nonspecific ST and T wave abnormality Prolonged QT Abnormal ECG When compared with ECG of 04-JUL-2023 11:41, Criteria for Septal infarct are no longer Present I personally reviewed the tracing and edited the fellows interpretation Confirmed by fellow MD Keyshawn, Katalina ([id number]) on 07/08/2023 3:18:07 PM Confirmed by MD Henderson Katharine ([id number]) on 07/09/2023 6:15:21 AM MUSE SYSTEM 07/08/2023 9:58 AM EDT 07/09/2023 6:15 AM EDT Lisa eBck MD ECG ORDERABLES Performing Organization Address City/[facility]/ZIP Co de Phone Number MUSE SYSTEM * Differential, Automated (07/08/2023 5:52 AM EDT) Neutrophils % 60.6 % [facility] Neutr Abs (ANC) 4.42 1.70 - 6.10 x10(3)/[facility] Lymphocytes % 24.8 % [facility] Lymphocytes Abs 1.8 0.9 - 3.2 x10(3)/[facility] Monocytes % 9.2 % [facility] Monocyte Abs 0.7 0.3 - 0.9 x10(3)/[facility] Eosinophils % 4.5 % [facility] Eosinophils Abs 0.3 0.0 - 0.4 x10(3)/[facility] Basophils % 0.5 % WHITE [...] 0.04 x10(3)/[facility] Blood 07/08/2023 5:52 AM EDT 07/08/2023 5:58 AM EDT Narrative Resulting Agency Comment Spec In Lab Terrence Keating MD HEMATOLOGY ORDERABLE S [facility] [place] [address] * (ABNORMAL) Hemogram (07/08/2023 5:52 AM EDT) WBC 7.3 4.0 - 9.5 x10(3)/[facility] RBC 3.94(L) 4.00 - 5.21 x10(6)/[facility] Hemoglobin 12.3 11.7 - 15.5 g/dL [facility] Hematocrit 36.3 35.7 - 45.8 % [facility] MCV 92.1 82.6 - 94.4 fL [facility] MCH 31.2 27.1 - 32.0 pg [facility] MCHC 33.9 31.7 - 35.0 g/dL [facility] Platelets 207 145 - 357 x10(3)/[facility] RDWSD 44.6 37.0 - 46.0 fL [facility] RDWCV 13.3 11.5 - 14.1 % [facility] MPV 10.5 7.6 - 12.9 [facility] nRBC % Auto 0.0 % [facility] nRBC Abs Auto 0.000 0.000 - 0.000 x10(3)/[facility] Blood 07/08/2023 5:52 AM EDT 07/08/2023 5:58 AM EDT Narrative Resulting Agency Comment Spec In Lab Terrence Keating MD HEMATOLOGY ORDERABLE S Performing Organization Address City/State/[facility] Co de Phone Number [facility] [place] [address] * Heparin (unfractionated) Level (07/08/2023 5:52 AM EDT) Heparin UFH Level 0.37 IU/mL [facility] Comment: [...] Lab Ailyn Irvin MD HEMATOLOGY ORDERABLE S [facility] [place] [address] * (ABNORMAL) Basic Metabolic Panel (non-fasting) (07/08/2023 5:52 AM EDT) Glucose Lvl 102 65 - 199 mg/dL [facility] Comment:Diabetes: >=200 mg/d L plus symptoms BUN 14 8 - 18 mg/dL [facility] Creatinine 1.30(H) 0.70 - 1.20 mg/dL [facility] Sodium 139 135 - 145 mmol/L [facility] Potassium 3.2(L) 3.5 - 5.0 mmol/L [facility] [...] [facility] Anion Gap 13 5 - 15 mmol/L [facility] Calcium 9.3 8.5 - 10.5 mg/dL [facility] Estimated GFR 49(L) >=60 mL/min/1. 73 m?? [facility] [...] MD CHEMISTRY ORDERABL ES Performing Organization Address [facility] Co de Phone Number [facility] [place] [address] * Phosphorus (07/08/2023 5:52 AM EDT) Phosphorus 4.3 2.5 - 4.5 mg/dL [facility] Blood 07/08/2023 5:52 AM EDT 07/08/2023 5:58 AM EDT Narrative Resulting Agency Comment Spec In Lab Eufemia Copeland MD CHEMISTRY ORDERABL ES Performing Organization Address [facility] Co de Phone Number [facility] [place] [address] * Magnesium (07/08/2023 5:52 AM EDT) Magnesium 0.89 0.69 - 1.07 mmol/L [facility] Blood 07/08/2023 5:52 AM EDT 07/08/2023 5:58 AM EDT Narrative Resulting Agency Comment Spec In Lab Eufemia Copeland MD CHEMISTRY ORDERABL ES Performing Organization Address [facility] Co de Phone Number [facility] [place] [address] * Heparin (unfractionated) Level (07/08/2023 12:00 AM EDT) Heparin UFH Level 0.22 IU/mL [facility] Comment: [...] MD HEMATOLOGY ORDERABLE S Performing Organization Address [facility] Co de Phone Number [facility] [place] [address] * Specimen to Pathology (07/07/2023 2:55 PM EDT) AP Specimen 07/07/2023 2:55 PM EDT 07/07/2023 2:55 PM EDT Narrative [facility] - 07/07/2023 2:55 PM EDT Specimen requisition ordered. ??Separate Pathology report to follow Terrence Keating MD PATHOLOGY/CYTOLOGY O RUMA Performing Organization Address [facility] Co de Phone Number [facility] [place] [address] * Specimen to Pathology (07/07/2023 2:38 PM EDT) AP Specimen 07/07/2023 2:38 PM EDT 07/07/2023 2:38 PM EDT Narrative [facility] - 07/07/2023 2:38 PM EDT Specimen requisition ordered. ??Separate Pathology report to follow Terrence Keating MD PATHOLOGY/CYTOLOGY O RDERABLES Performing Organization Address City/[facility]/ZIP Co de Phone Number [facility] [place] [address] * Specimen to Pathology (07/07/2023 2:38 PM EDT) AP Specimen 07/07/2023 2:38 PM EDT 07/07/2023 2:38 PM EDT Narrative [facility] - 07/07/2023 2:38 PM EDT Specimen requisition ordered. ??Separate Pathology report to follow Terrence Keating MD PATHOLOGY/CYTOLOGY O RDERABLES Performing Organization Address [facility] Co de Phone Number [facility] [place] [address] * Surgical Pathology Report (07/07/2023 2:25 PM EDT) FINAL DIAGNOSIS (AP) [id number] ? Location: [facility]; [facility]; A The signing pathologist has (i) examined [...] Verified: ??07/19/2023 13:25 ??Pathologist Performed at: ??-[facility] Dept. of Pathology, [place] [address] [employer] Starter And Ranger: Vangie Lu MD, FCAP, ??CLIA Certificate: [id number] SPECIMEN(S) SUBMITTED A - duodenal biopsies rule [...] labeled C1-C2. ??sdy 07/19/2023 1:25 PM EDT [facility] 07/07/2023 2:25 PM EDT Lashonda Villa MD PATHOLOGY/CYTOLOGY O RUMA [facility] [place] [id number] * COLONOSCOPY (07/07/2023 1:39 PM EDT) COLONOSCOPY [facility] Endoscopy Procedure Date: 07/07/2023 1:39 PM ? Patient Name: Loida Roque ? Date of : 1970 ? Age: 53 ? Order #: [id number] ? Instrument Name: [id number] ? Procedure: ? Colonoscopy Indications: ? Abdominal [...] ? was evaluated using the BBPS ? ([place] Bowel Preparation Scale) ? with scores of: [...] Procedure Code(s): ? --- Professional --- ? 17444, Colonoscopy, flexible; with ? biopsy, single or multiple CPT copyright 2021 [employer]. All rights reserved. The codes documented in this report are preliminary and upon development assistant review may be revised to meet current [...] 1 EIA Negative for Shiga Toxin 2 [facility] Stool 07/07/2023 12:1 0 PM EDT 07/07/2023 12:53 PM EDT Narrative Resulting Agency Comment Spec In Lab Ailyn Irvin MD MICROBIOLOGY - GENER AL ORDERABLES Performing Organization Address [facility] Co de Phone Number [facility] [place] [address] * Campylobacter Antigen (07/07/2023 12:10 PM EDT) Campylobacter Ag Immunoassay Negative for Campylobacter Antigen [facility] Stool 07/07/2023 12:1 0 PM EDT 07/07/2023 12:53 PM EDT Narrative Resulting Agency Comment Spec In Lab Ailyn Irvin MD MICROBIOLOGY - GENER AL ORDERABLES Performing Organization Address [facility] Co de Phone Number [facility] [place] [address] * Stool culture (07/07/2023 12:10 PM EDT) Stool Culture No enteric pathogens isolated [facility] Stool 07/07/2023 12:1 0 PM EDT 07/07/2023 12:53 PM EDT Narrative Resulting Agency Comment Spec In Lab Ailyn Irvin MD MICROBIOLOGY - GENER AL ORDERABLES Performing Organization Address [facility] Co de Phone Number [facility] [place] [address] * (ABNORMAL) Differential, Automated (07/07/2023 3:51 AM EDT) Neutrophils % 58.9 % [facility] Neutr Abs (ANC) 4.67 1.70 - 6.10 x10(3)/[facility] Lymphocytes % 24.8 % [facility] Lymphocytes Abs 2.0 0.9 - 3.2 x10(3)/[facility] Monocytes % 9.4 % [facility] Monocyte Abs 0.7 0.3 - 0.9 x10(3)/[facility] Eosinophils % 6.1 % [facility] Eosinophils Abs 0.5(H) 0.0 - 0.4 x10(3)/[facility] Basophils % 0.5 % [facility] Basophils Abs 0.0 0.0 - 0.1 x10(3)/[facility] Immature Gran % 0.30 % [facility] Comment: Immature granulocytes(IG's)percentage and absolute count will include metamyelocytes, myelocytes, and promyelocytes. Blood smears from CBCs yielding IG's will be scanned manually for concordance. If this scan disagrees with the automated IG or if promyelocytes are noted, a manual differential will be performed. Shonda Gran Abs 0.02 0.00 - 0.04 x10(3)/[facility] Blood 07/07/2023 3:51 AM EDT 07/07/2023 4:08 AM EDT Narrative Resulting Agency Comment Spec In Lab Terrence Keating MD HEMATOLOGY ORDERABLE S [facility] [place] [address] * Hemogram (07/07/2023 3:51 AM EDT) WBC 7.9 4.0 - 9.5 x10(3)/[facility] RBC 4.42 4.00 - 5.21 x10(6)/[facility] Hemoglobin 13.8 11.7 - 15.5 g/dL [facility] Hematocrit 41.0 35.7 - 45.8 % [facility] MCV 92.8 82.6 - 94.4 fL [facility] MCH 31.2 27.1 - 32.0 pg [facility] MCHC 33.7 31.7 - 35.0 g/dL [facility] Platelets 255 145 - 357 x10(3)/[facility] RDWSD 44.8 37.0 - 46.0 fL [facility] RDWCV 13.2 11.5 - 14.1 % [facility] MPV 10.6 7.6 - 12.9 fL [facility] nRBC % Auto 0.0 % [facility] nRBC Abs Auto 0.000 0.000 - 0.000 x10(3)/[facility] Blood 07/07/2023 3:51 AM EDT 07/07/2023 4:08 AM EDT Narrative Resulting Agency Comment Spec In Lab Terrence Keating MD HEMATOLOGY ORDERABLE S [facility] [place] [address] * Heparin (unfractionated) Level (07/07/2023 3:51 AM EDT) Heparin UFH Level 0.33 IU/mL [facility] Comment: [...] Lab Terrence Keating MD HEMATOLOGY ORDERABLE S [facility] [place] [address] * (ABNORMAL) Basic Metabolic Panel (non-fasting) (07/07/2023 3:51 AM EDT) Glucose Lvl 101 65 - 199 mg/dL [facility] Comment:Diabetes: >=200 mg/d L plus symptoms BUN 18 8 - 18 mg/dL [facility] Creatinine 1.30(H) 0.70 - 1.20 mg/dL [facility] Sodium 135 135 - 145 mmol/L [facility] [...] [facility] Estimated GFR 49(L) >=60 mL/min/1. 73 m?? [facility] [...] MD CHEMISTRY ORDERABL ES Performing Organization Address [facility] Co de Phone Number [facility] [place] [address] * Phosphorus (07/07/2023 3:51 AM EDT) Phosphorus 4.0 2.5 - 4.5 mg/dL [facility] Blood 07/07/2023 3:51 AM EDT 07/07/2023 4:08 AM EDT Narrative Resulting Agency Comment Spec In Lab Eufemia Copeland MD CHEMISTRY ORDERABL ES Performing Organization Address [facility] Co de Phone Number [facility] [place] [address] * Magnesium (07/07/2023 3:51 AM EDT) Magnesium 0.87 0.69 - 1.07 mmol/L [facility] Blood 07/07/2023 3:51 AM EDT 07/07/2023 4:08 AM EDT Narrative Resulting Agency Comment Spec In Lab Eufemia Copeland MD CHEMISTRY ORDERABL ES Performing Organization Address [facility] Co de Phone Number [facility] [place] [address] * Hepatic Function Panel (07/07/2023 3:51 AM EDT) Total Protein 7.5 6.1 - 8.0 g/dL [facility] Albumin 4.4 3.2 - 5.2 g/dL [facility] AST 15 0 - 30 unit/L [facility] ALT 20 0 - 30 unit/L [facility] Alk Phos 54 35 - 105 unit/L [facility] Total Bilirubin 0.4 0.2 - 1.3 mg/dL [facility] Bili, Direct 0.1 0.0 - 0.3 mg/dL [facility] Blood 07/07/2023 3:51 AM EDT 07/07/2023 4:08 AM EDT Narrative Resulting Agency Comment Spec In Lab Ailyn Irvin MD CHEMISTRY ORDERABLES Performing Organization Address City/[facility]/ZIP Co de Phone Number [facility] [place] [address] * Giardia/Cryptosporidium Antigens ([facility]/CGP/APD/NLH) (07/07/2023 12:38 AM EDT) Pathologist [facility] Giardia Screen Negative Negative [facility] Comment:Examination for othe r intestinal parasites requires foreign travel history. Cryptosporidium Screen Negative Negative [facility] Stool 07/07/2023 12:3 8 AM EDT 07/07/2023 7:56 AM EDT Narrative Resulting Agency Comment Spec In Lab Ailyn Irvin MD MICROBIOLOGY - GENER AL ORDERABLES [facility] [place] [address] * Hepatic Function Panel (07/06/2023 3:41 PM EDT) Total Protein 7.6 6.1 - 8.0 g/dL [facility] Albumin 4.3 3.2 - 5.2 g/dL [facility] AST 20 0 - 30 unit/L [facility] ALT 22 0 - 30 unit/L [facility] Alk Phos 58 35 - 105 unit/L [facility] Total Bilirubin 0.4 0.2 - 1.3 mg/dL [facility] Bili, Direct 0.1 0.0 - 0.3 mg/dL [facility] Blood 07/06/2023 3:41 PM EDT 07/06/2023 4:00 PM EDT Narrative Resulting Agency Comment Spec In Lab Terrence Keating MD CHEMISTRY ORDERABLES Performing Organization Address [facility] Co de Phone Number [facility] [place] [address] * Hepatic Function Panel (07/06/2023 3:54 AM EDT) Total Protein 7.6 6.1 - 8.0 g/dL [facility] Albumin 4.3 3.2 - 5.2 g/dL [facility] AST Not Perf 0 - 30 [facility] Comment: Unable to quantitate due to sample hemolysis. ??Sample redraw suggested. Called by: abimbola, Read back by: Ana Paula Borja, Date/Time:07/06/23 14:08. ALT 25 0 - 30 unit/L [facility] Alk Phos 58 35 - 105 unit/L [facility] Total Bilirubin 0.4 0.2 - 1.3 mg/dL [facility] Bili, Direct Not Perf 0.0 - 0.3 [facility] Blood Venous Draw / Unknown 07/06/2023 3:54 AM EDT 07/06/2023 4:18 AM EDT Narrative Resulting Agency Comment Spec In Lab Terrence Keating MD CHEMISTRY ORDERABLES Performing Organization Address City/[facility]/ZIP Co de Phone Number [facility] [place] [address] * (ABNORMAL) Differential, Automated (07/06/2023 3:54 AM EDT) Neutrophils % 56.6 % [facility] Neutr Abs (ANC) 4.34 1.70 - 6.10 x10(3)/[facility] Lymphocytes % 26.1 % [facility] Lymphocytes Abs 2.0 0.9 - 3.2 x10(3)/[facility] Monocytes % 9.6 % [facility] Monocyte Abs 0.7 0.3 - 0.9 x10(3)/[facility] Eosinophils % 6.6 % [facility] Eosinophils Abs 0.5(H) 0.0 - 0.4 x10(3)/[facility] Basophils % 0.7 % [facility] Basophils Abs 0.0 0.0 - 0.1 x10(3)/[facility] Immature Gran % 0.40 % [facility] Comment: Immature granulocytes(IG's)percentage and absolute count will include metamyelocytes, myelocytes, and promyelocytes. Blood smears from CBCs yielding IG's will be scanned manually for concordance. If this scan disagrees with the automated IG or if promyelocytes are noted, a manual differential will be performed. Shonda Gran Abs 0.03 0.00 - 0.04 x10(3)/[facility] Blood 07/06/2023 3:54 AM EDT 07/06/2023 4:12 AM EDT Narrative Resulting Agency Comment Spec In Lab Terrence Keating MD HEMATOLOGY ORDERABLE S [facility] [place] [address] * (ABNORMAL) Hemogram (07/06/2023 3:54 AM EDT) WBC 7.7 4.0 - 9.5 x10(3)/[facility] RBC 4.62 4.00 - 5.21 x10(6)/[facility] Hemoglobin 14.7 11.7 - 15.5 g/dL [facility] Hematocrit 43.8 35.7 - 45.8 % [facility] MCV 94.8(H) 82.6 - 94.4 fL [facility] MCH 31.8 27.1 - 32.0 pg [facility] MCHC 33.6 31.7 - 35.0 g/dL [facility] Platelets 243 145 - 357 x10(3)/[facility] RDWSD 47.2(H) 37.0 - 46.0 [facility] RDWCV 13.5 11.5 - 14.1 % [facility] MPV 10.4 7.6 - 12.9 [facility] nRBC % Auto 0.0 % [facility] nRBC Abs Auto 0.000 0.000 - 0.000 x10(3)/[facility] Blood 07/06/2023 3:54 AM EDT 07/06/2023 4:12 AM EDT Narrative Resulting Agency Comment Spec In Lab Terrence Keating MD HEMATOLOGY ORDERABLE S [facility] [place] [address] * (ABNORMAL) Basic Metabolic Panel (non-fasting) (07/06/2023 3:54 AM EDT) Glucose Lvl 107 65 - 199 mg/dL [facility] Comment:Diabetes: >=200 mg/d L plus symptoms BUN 16 8 - 18 mg/dL [facility] Creatinine 1.25(H) 0.70 - 1.20 mg/dL [facility] Sodium 135 135 - 145 mmol/L [facility] [...] questions. Chloride 98 98 - 107 mmol/L [facility] CO2 23 22 - 31 mmol/L [facility] Anion Gap 14 5 - 15 mmol/L [facility] Calcium 10.0 8.5 - 10.5 mg/dL [facility] Estimated GFR 51(L) >=60 mL/min/1. 73 m?? [facility] [...] MD CHEMISTRY ORDERABL ES Performing Organization Address City/State/[facility] Co de Phone Number [facility] [place] [address] * Phosphorus (07/06/2023 3:54 AM EDT) Phosphorus 4.5 2.5 - 4.5 mg/dL [facility] Blood 07/06/2023 3:54 AM EDT 07/06/2023 4:18 AM EDT Narrative Resulting Agency Comment Spec In Lab Eufemia Copeland MD CHEMISTRY ORDERABL ES Performing Organization Address City/[facility]/ZIP Co de Phone Number [facility] [place] [address] * Magnesium (07/06/2023 3:54 AM EDT) Magnesium 0.97 0.69 - 1.07 mmol/L [facility] Blood 07/06/2023 3:54 AM EDT 07/06/2023 4:18 AM EDT Narrative Resulting Agency Comment Spec In Lab Eufemia Copeland MD CHEMISTRY ORDERABL ES Performing Organization Address [facility] Co de Phone Number [facility] [place] [address] * Heparin (unfractionated) Level (07/06/2023 3:54 AM EDT) [facility] Heparin UFH Level 0.31 IU/mL [facility] Comment: [...] [facility]/ZIP Co de Phone Number [facility] [place] [address] * Amylase (07/05/2023 5:44 PM EDT) Amylase 35 28 - 100 unit/L [facility] Blood 07/05/2023 5:44 PM EDT 07/05/2023 6:00 PM EDT Narrative Resulting Agency Comment Spec In Lab Terrence Keating MD CHEMISTRY ORDERABLES Performing Organization Address City/[facility] Co de Phone Number [facility] [place] [address] * Lipase (07/05/2023 5:44 PM EDT) Lipase 17 0 - 60 unit/L [facility] Blood 07/05/2023 5:44 PM EDT 07/05/2023 6:00 PM EDT Narrative Resulting Agency Comment Spec In Lab Terrence Keating MD CHEMISTRY ORDERABLES Performing Organization Address [facility] de Phone Number [facility] [place] [address] * (ABNORMAL) Basic Metabolic Panel (non-fasting) (07/05/2023 5:44 PM EDT) Glucose Lvl 130 65 - 199 mg/dL [facility] Comment:Diabetes: >=200 mg/d L plus symptoms BUN 17 8 - 18 mg/dL [facility] Creatinine 1.30(H) 0.70 - 1.20 mg/dL [facility] [...] questions. Chloride 98 98 - 107 mmol/L [facility] CO2 21(L) 22 - 31 mmol/L [facility] Anion Gap 15 5 - 15 mmol/L [facility] Calcium 9.6 8.5 - 10.5 mg/dL [facility] Estimated GFR 49(L) >=60 mL/min/1. 73 m?? [facility] [...] Keating MD CHEMISTRY ORDERABLES Performing Organization Address City/State/[facility] Co de Phone Number [facility] [place] [address] * Duplex Study Visceral Arteries, Comp (07/05/2023 9:46 AM EDT) VB Text Report Department: Vascular Surgery Lab Patient: [id number] (LOIDA ROQUE) CPT: [id number] Referring Physician: TERRENCE KEATING ?? Phone: Indications: [...] ?Bi-Triphasic ?101 ?11 ?? Hepatic Artery ? Page-Biphasic ? 123 ?23 ?? Splenic Artery ? Page-Biphasic ? 122 ?24 ?? Inf Mes Artery [...] 5:05 AM EDT) Neutrophils % 63.0 % [facility] Neutr Abs (ANC) 5.59 1.70 - 6.10 x10(3)/[facility] Lymphocytes % 22.4 % [facility] Lymphocytes Abs 2.0 0.9 - 3.2 x10(3)/[facility] Monocytes % 9.7 % [facility] Monocyte Abs 0.9 0.3 - 0.9 x10(3)/[facility] Eosinophils % 4.1 % [facility] Eosinophils Abs 0.4 0.0 - 0.4 x10(3)/[facility] Basophils % 0.6 % WHITE [...] 0.04 x10(3)/[facility] Blood 07/05/2023 5:05 AM EDT 07/05/2023 5:17 AM EDT Narrative Resulting Agency Comment Spec In Lab Terrence Keating MD HEMATOLOGY ORDERABLE S [facility] [place] [address] * (ABNORMAL) Hemogram (07/05/2023 5:05 AM EDT) WBC 8.9 4.0 - 9.5 x10(3)/[facility] RBC 4.42 4.00 - 5.21 x10(6)/[facility] Hemoglobin 13.7 11.7 - 15.5 g/dL [facility] Hematocrit 41.4 35.7 - 45.8 % [facility] MCV 93.7 82.6 - 94.4 fL [facility] MCH 31.0 27.1 - 32.0 pg [facility] MCHC 33.1 31.7 - 35.0 g/dL [facility] Platelets 245 145 - 357 x10(3)/[facility] RDWSD 47.1(H) 37.0 - 46.0 [facility] RDWCV 13.7 11.5 - 14.1 % [facility] MPV 10.8 7.6 - 12.9 [facility] nRBC % Auto 0.0 % [facility] nRBC Abs Auto 0.000 0.000 - 0.000 x10(3)/[facility] Blood 07/05/2023 5:05 AM EDT 07/05/2023 5:17 AM EDT Narrative Resulting Agency Comment Spec In Lab Terrence Keating MD HEMATOLOGY ORDERABLE S Performing Organization Address City/State/[facility] Co de Phone Number [facility] [place] [address] * Heparin (unfractionated) Level (07/05/2023 5:05 AM EDT) Heparin UFH Level 0.35 IU/mL [facility] Comment: [...] Lab Ailyn Irvin MD HEMATOLOGY ORDERABLE S [facility] [place] [address] * (ABNORMAL) Basic Metabolic Panel (non-fasting) (07/05/2023 5:05 AM EDT) Glucose Lvl 114 65 - 199 mg/dL [facility] Comment:Diabetes: >=200 mg/d L plus symptoms BUN 19(H) 8 - 18 mg/dL [facility] Creatinine 1.51(H) 0.70 - 1.20 mg/dL [facility] [...] questions. Chloride 97(L) 98 - 107 mmol/L [facility] CO2 25 22 - 31 mmol/L [facility] Anion Gap 12 5 - 15 mmol/L [facility] Calcium 10.0 8.5 - 10.5 mg/dL [facility] Estimated GFR 41(L) >=60 mL/min/1. 73 m?? [facility] [...] MD CHEMISTRY ORDERABL ES Performing Organization Address [facility] Co de Phone Number [facility] [place] [address] * (ABNORMAL) Phosphorus (07/05/2023 5:05 AM EDT) Phosphorus 5.0(H) 2.5 - 4.5 mg/dL [facility] Blood 07/05/2023 5:05 AM EDT 07/05/2023 5:17 AM EDT Narrative Resulting Agency Comment Spec In Lab Eufemia Copeland MD CHEMISTRY ORDERABL ES Performing Organization Address [facility] Co de Phone Number [facility] [place] [address] * Magnesium (07/05/2023 5:05 AM EDT) Magnesium 1.01 0.69 - 1.07 mmol/L [facility] Blood 07/05/2023 5:05 AM EDT 07/05/2023 5:17 AM EDT Narrative Resulting Agency Comment Spec In Lab Eufemia Copeland MD CHEMISTRY ORDERABL ES Performing Organization Address [facility] Co de Phone Number [facility] [place] [address] * EKG 12 Lead (07/04/2023 11:41 AM EDT) Ventricular rate 76 BPM MUSE SYSTEM Atrial Rate 76 BPM MUSE SYSTEM P-R Interval 174 ms MUSE SYSTEM QRS Duration 88 ms MUSE SYSTEM Q-T Interval 450 ms MUSE SYSTEM QTC Calculated (Bezet) 506 ms MUSE SYSTEM Calculated P [place] 36 degrees MUSE SYSTEM Calculated R [place] 35 degrees MUSE SYSTEM Calculated T [place] 37 degrees MUSE SYSTEM INTERPRETATION Normal sinus [...] 3:47 AM EDT) Neutrophils % 63.5 % [facility] Neutr Abs (ANC) 5.19 1.70 - 6.10 x10(3)/[facility] Lymphocytes % 24.4 % [facility] Lymphocytes Abs 2.0 0.9 - 3.2 x10(3)/[facility] Monocytes % 8.1 % [facility] Monocyte Abs 0.7 0.3 - 0.9 x10(3)/[facility] Eosinophils % 3.4 % [facility] Eosinophils Abs 0.3 0.0 - 0.4 x10(3)/[facility] Basophils % 0.4 % [facility] [...] 0.04 x10(3)/[facility] Blood 07/04/2023 3:47 AM EDT 07/04/2023 4:15 AM EDT Narrative Resulting Agency Comment Spec In Lab Terrence Keating MD HEMATOLOGY ORDERABLE S [facility] [place] [address] * (ABNORMAL) Hemogram (07/04/2023 3:47 AM EDT) WBC 8.2 4.0 - 9.5 x10(3)/[facility] LABORATORY RBC 4.26 4.00 - 5.21 x10(6)/[facility] LABORATORY Hemoglobin 13.5 11.7 - 15.5 g/dL [facility] Hematocrit 40.0 35.7 - 45.8 % [facility] MCV 93.9 82.6 - 94.4 [facility] LABORATORY MCH 31.7 27.1 - 32.0 pg [facility] MCHC 33.8 31.7 - 35.0 g/dL [facility] Platelets 219 145 - 357 x10(3)/[facility] LABORATORY RDWSD 47.0(H) 37.0 - 46.0 [facility] LABORATORY RDWCV 13.7 11.5 - 14.1 % [facility] [facility] MPV 11.0 7.6 - 12.9 [facility] LABORATORY nRBC % Auto 0.0 % [facility] LABORATORY nRBC Abs Auto 0.000 0.000 - 0.000 x10(3)/[facility] LABORATORY Blood 07/04/2023 3:47 AM EDT 07/04/2023 4:15 AM EDT Narrative Resulting Agency Comment Spec In Lab Terrence Keating MD HEMATOLOGY ORDERABLE S Performing Organization Address [facility] Co de Phone Number [facility] [place] [address] * Heparin (unfractionated) Level (07/04/2023 3:47 AM EDT) Heparin UFH Level 0.44 IU/mL [facility] Comment: [...] MD HEMATOLOGY ORDERABLE S Performing Organization Address [facility]/ZIP Co de Phone Number [facility] [place] [address] * (ABNORMAL) Basic Metabolic Panel (non-fasting) (07/04/2023 3:47 AM EDT) Glucose Lvl 104 65 - 199 mg/dL [facility] Comment:Diabetes: >=200 mg/d L plus symptoms BUN 16 8 - 18 mg/dL [facility] Creatinine 1.28(H) 0.70 - 1.20 mg/dL [facility] Estimated GFR 50(L) >=60 mL/min/1. 73 m?? [facility] ORDERABL ES [facility] [place] [address] * (ABNORMAL) Phosphorus (07/04/2023 3:47 AM EDT) Phosphorus 4.9(H) 2.5 - 4.5 mg/dL [facility] LABOR[facility] Blood 07/04/2023 3:47 AM EDT 07/04/2023 4:15 AM EDT Narrative Resulting Agency Comment Spec In Lab Eufemia Copeland MD CHEMISTRY ORDERABL ES Performing Organization Address [facility] Co de Phone Number [facility] [place] [address] * Magnesium (07/04/2023 3:47 AM EDT) Magnesium 1.05 0.69 - 1.07 mmol/L [facility] LAB[facility] Blood 07/04/2023 3:47 AM EDT 07/04/2023 4:15 AM EDT Narrative Resulting Agency Comment Spec In Lab Eufemia Copeland MD CHEMISTRY ORDERABL ES Performing Organization Address [facility] Co de Phone Number [facility] [place] [address] * EKG 12 Lead (07/03/2023 9:36 PM EDT) Ventricular rate 61 BPM MUSE SYSTEM Atrial Rate 61 BPM MUSE SYSTEM P-R Interval 188 ms MUSE SYSTEM QRS Duration 88 ms MUSE SYSTEM Q-T Interval 512 ms MUSE SYSTEM QTC Calculated (Bezet) 515 ms MUSE SYSTEM Calculated P [place] 56 degrees MUSE SYSTEM Calculated R [place] 69 degrees MUSE SYSTEM Calculated T [place] 29 degrees MUSE SYSTEM INTERPRETATION Normal sinus [...] Beck MD ECG ORDERABLES Performing Organization Address [facility] Co de Phone Number MUSE SYSTEM * Magnesium (07/03/2023 6:00 PM EDT) Magnesium 0.89 0.69 - 1.07 mmol/L [facility] LABORATORY Blood 07/03/2023 6:00 PM EDT 07/03/2023 6:07 PM EDT Narrative Resulting Agency Comment Spec In Lab Lino Calles MD CHEMISTRY ORDERABLES [facility] [place] [address] * (ABNORMAL) Basic Metabolic Panel (non-fasting) (07/03/2023 6:00 PM EDT) Glucose Lvl 116 65 - 199 mg/dL [facility] In Lab Lino Calles MD CHEMISTRY ORDERABLES [facility] [place] [address] * XR Chest One View (07/03/2023 3:18 PM EDT) WORKSTATION ID [id number] RAD Anatomical Region Laterality Modality Chest N/A Digital Radiogra phy Impressions 07/03/2023 3:27 PM EDT No pulmonary edema or pleural effusion Thank you for letting us participate in the care of this patient. ??If you are a health care provider and have any questions regarding this report, please contact the number below. ??For patients who have questions please contact the health adult daycare coordinator that requested your imaging first. ? [...] patients who have questions please contactthe health adult daycare coordinator that requested your imaging first. Lino Calles MD IMG DX ORDERABLES * Arterial Duplex Leg, Unil (07/03/2023 9:34 AM EDT) VB Text Report Department: Vascular Surgery Lab Patient: [id number] (LOIDA ROQUE) CPT: 01221 Referring Physician: LINO CALLES ?? Phone: Indications: [...] 3:07 AM EDT) Neutrophils % 67.2 % [facility] LABORATORY Neutr Abs (ANC) 5.51 1.70 - 6.10 x10(3)/[facility] LABORATORY Lymphocytes % 20.7 % [facility] LABORATORY Lymphocytes Abs 1.7 0.9 - 3.2 x10(3)/[facility] LABORATORY Monocytes % 7.7 % [facility] LABORATORY Monocyte Abs 0.6 0.3 - 0.9 x10(3)/[facility] LABORATORY Eosinophils % 3.7 % [facility] LABORATORY Eosinophils Abs 0.3 0.0 - 0.4 x10(3)/[facility] LABORATORY Basophils % 0.5 % WH[facility] [...] 0.04 x10(3)/[facility] LABORATORY Blood 07/03/2023 3:07 AM EDT 07/03/2023 3:15 AM EDT Narrative Resulting Agency Comment Spec In Lab Terrence Keating MD HEMATOLOGY ORDERABLE S [facility] [place] [address] * (ABNORMAL) Hemogram (07/03/2023 3:07 AM EDT) WBC 8.2 4.0 - 9.5 x10(3)/[facility] LABORATORY RBC 3.97(L) 4.00 - 5.21 x10(6)/[facility] LABORATORY Hemoglobin 12.5 11.7 - 15.5 g/dL [facility] LAB[facility] Hematocrit 38.5 35.7 - 45.8 % [facility] LABORATORY MCV 97.0(H) 82.6 - 94.4 [facility] LABORATORY MCH 31.5 27.1 - 32.0 pg [facility] MCHC 32.5 31.7 - 35.0 g/dL [facility] LABORATORY Platelets 203 145 - 357 x10(3)/[facility] LABORATORY RDWSD 49.6(H) 37.0 - 46.0 [facility] LABORATORY RDWCV 13.7 11.5 - 14.1 % [facility] LABORATORY MPV 10.8 7.6 - 12.9 [facility] LABORATORY nRBC % Auto 0.0 % [facility] LABORATORY nRBC Abs Auto 0.000 0.000 - 0.000 x10(3)/[facility] LABORATORY Blood 07/03/2023 3:07 AM EDT 07/03/2023 3:15 AM EDT Narrative Resulting Agency Comment Spec In Lab Terrence Keating MD HEMATOLOGY ORDERABLE S [facility] [place] [address] * Heparin (unfractionated) Level (07/03/2023 3:07 AM EDT) Pathologist [facility] Heparin UFH Level 0.49 IU/mL [facility] Comment: [...] Lab Ailyn Irvin MD HEMATOLOGY ORDERABLE S [facility] [place] [address] * (ABNORMAL) Basic Metabolic Panel (non-fasting) (07/03/2023 3:07 AM EDT) [facility] Glucose Lvl 104 65 - 199 mg/dL [facility] Comment:Diabetes: >=200 mg/d L plus symptoms BUN 16 8 - 18 mg/dL [facility] Creatinine 1.20 0.70 - 1.20 mg/dL [facility] Sodium 138 135 - 145 mmol/L [facility] Potassium 4.2 3.5 - 5.0 mmol/L [facility] Comment: Please note: ??Patients with WBC >100,000 may have falsely elevated Potassium levels. ??For accurate Potassium quantification in these patients send serum separator tube (gold top) for subsequent determinations. ??Contact the Clinical Chemistry Laboratory if there are any questions. Chloride 107 98 - 107 mmol/L [facility] CO2 20(L) 22 - 31 mmol/L [facility] [...] MD CHEMISTRY ORDERABL ES Performing Organization Address [facility] Co de Phone Number [facility] [place] [address] * Phosphorus (07/03/2023 3:07 AM EDT) Phosphorus 3.6 2.5 - 4.5 mg/dL [facility] LABOR[facility] Blood 07/03/2023 3:07 AM EDT 07/03/2023 3:15 AM EDT Narrative Resulting Agency Comment Spec In Lab Eufemia Copeland MD CHEMISTRY ORDERABL ES Performing Organization Address [facility]/ZIP Co de Phone Number [facility] [place] [address] * Magnesium (07/03/2023 3:07 AM EDT) Magnesium 0.93 0.69 - 1.07 mmol/L [facility] LABOR[facility] Blood 07/03/2023 3:07 AM EDT 07/03/2023 3:15 AM EDT Narrative Resulting Agency Comment Spec In Lab Eufemia Copeland MD CHEMISTRY ORDERABL ES Performing Organization Address City/[facility]/ZIP Co de Phone Number [facility] [place] [address] * Heparin (unfractionated) Level (07/02/2023 8:58 PM EDT) Heparin UFH Level 0.60 IU/mL [facility] Comment: [...] [facility]/ZIP Co de Phone Number [facility] [place] [address] * VS Arteriogram Mesenteric Vascular Surgery (07/02/2023 [...] anesthetic: 10 cc 1% lidocaine Heparin: Yes 22390 ?? Units Protamine: No ??mg Antibiotics: Ancef [...] We exchanged the sheath for a 7 [place] river rafting guide steerable sheath over a stiff wire. ??A Glidewire and Kumpe catheter were used to selectively cannulate the superior mesenteric artery. ??Direct angiography of the superior mesenteric artery was performed, confirming the results of the nonselective aortography performed. ??The lesion was predilated with a 4 mm x 40 mm [place] balloon, and then a 6 mm X [...] 3:58 AM EDT) Neutrophils % 61.3 % [facility]OR[facility] Neutr Abs (ANC) 4.67 1.70 - 6.10 x10(3)/[facility] LABORATORY Lymphocytes % 27.6 % [facility] Lymphocytes Abs 2.1 0.9 - 3.2 x10(3)/[facility] LABORATORY Monocytes % 6.4 % [facility] LABORATORY Monocyte Abs 0.5 0.3 - 0.9 x10(3)/[facility] LABORATORY Eosinophils % 3.9 % [facility] Eosinophils Abs 0.3 0.0 - 0.4 x10(3)/[facility] LABORATORY Basophils % 0.5 % WH[facility] [...] 0.04 x10(3)/[facility] LABORATORY Blood 07/02/2023 3:58 AM EDT 07/02/2023 4:14 AM EDT Narrative Resulting Agency Comment Spec In Lab Terrence Keating MD HEMATOLOGY ORDERABLE S [facility] [place] [address] * (ABNORMAL) Hemogram (07/02/2023 3:58 AM EDT) WBC 7.6 4.0 - 9.5 x10(3)/[facility] LABORATORY RBC 4.12 4.00 - 5.21 x10(6)/[facility] LABORATORY Hemoglobin 12.9 11.7 - 15.5 g/dL [facility] Hematocrit 39.5 35.7 - 45.8 % [facility] MCV 95.9(H) 82.6 - 94.4 fL [facility] MCH 31.3 27.1 - 32.0 pg [facility] MCHC 32.7 31.7 - 35.0 g/dL [facility] LABOR[facility] Platelets 200 145 - 357 x10(3)/[facility] LABORATORY RDWSD 47.4(H) 37.0 - 46.0 [facility] LABORATORY RDWCV 13.3 11.5 - 14.1 % [facility] LABORATORY MPV 10.8 7.6 - 12.9 [facility] LABORATORY nRBC % Auto 0.0 % [facility] LABORATORY nRBC Abs Auto 0.000 0.000 - 0.000 x10(3)/[facility] LABORATORY Blood 07/02/2023 3:58 AM EDT 07/02/2023 4:14 AM EDT Narrative Resulting Agency Comment Spec In Lab Terrence Keating MD HEMATOLOGY ORDERABLE S [facility] [place] [address] * Heparin (unfractionated) Level (07/02/2023 3:58 AM EDT) Heparin UFH Level 0.57 IU/mL [facility] Comment: [...] Lab Ailyn Irvin MD HEMATOLOGY ORDERABLE S [facility] [place] [address] * (ABNORMAL) Basic Metabolic Panel (non-fasting) (07/02/2023 3:58 AM EDT) Pathologist [facility] Glucose Lvl 96 65 - 199 mg/dL [facility] Comment:Diabetes: >=200 mg/d L plus symptoms BUN 15 8 - 18 mg/dL [facility] Creatinine 1.21(H) 0.70 - 1.20 mg/dL [facility] Sodium 133(L) 135 - 145 mmol/L [facility] [...] questions. Chloride 104 98 - 107 mmol/L [facility] CO2 21(L) 22 - 31 mmol/L [facility] Anion Gap 8 5 - 15 mmol/L [facility] [...] ORDERABL ES Performing Organization Address City/[facility]/ZIP Co de Phone Number [facility] [place] [address] * Phosphorus (07/02/2023 3:58 AM EDT) Phosphorus 3.8 2.5 - 4.5 mg/dL [facility] Blood 07/02/2023 3:58 AM EDT 07/02/2023 4:14 AM EDT Narrative Resulting Agency Comment Spec In Lab Eufemia Copeland MD CHEMISTRY ORDERABL ES Performing Organization Address City/[facility]/ZIP Co de Phone Number [facility] [place] [address] * Magnesium (07/02/2023 3:58 AM EDT) Magnesium 0.95 0.69 - 1.07 mmol/L [facility] Blood 07/02/2023 3:58 AM EDT 07/02/2023 4:14 AM EDT Narrative Resulting Agency Comment Spec In Lab Eufemia Copeland MD CHEMISTRY ORDERABL ES Performing Organization Address City/[facility]/ZIP Co de Phone Number [facility] [place] [address] * EKG 12 Lead (07/01/2023 12:08 PM EDT) Ventricular rate 48 BPM MUSE SYSTEM Atrial Rate 48 BPM MUSE SYSTEM P-R Interval 192 ms MUSE SYSTEM QRS Duration 92 ms MUSE SYSTEM Q-T Interval 474 ms MUSE SYSTEM QTC Calculated (Bezet) 423 ms MUSE SYSTEM Calculated P [place] 32 degrees MUSE SYSTEM Calculated R [place] 45 degrees MUSE SYSTEM Calculated T [place] 0 degrees MUSE SYSTEM INTERPRETATION Sinus bradycardia [...] [facility]/ZIP Co de Phone Number MUSE SYSTEM * Differential, Automated (07/01/2023 2:56 AM EDT) Neutrophils % 50.5 % [facility] LAB[facility] Neutr Abs (ANC) 3.47 1.70 - 6.10 x10(3)/[facility] LABORATORY Lymphocytes % 36.5 % [facility] Lymphocytes Abs 2.5 0.9 - 3.2 x10(3)/[facility] LABORATORY Monocytes % 7.7 % [facility] LABORATORY Monocyte Abs 0.5 0.3 - 0.9 x10(3)/[facility] LABORATORY Eosinophils % 4.5 % [facility] Eosinophils Abs 0.3 0.0 - 0.4 x10(3)/[facility] LABORATORY Basophils % 0.7 % [place] [...] 0.04 x10(3)/[facility] LABORATORY Blood 07/01/2023 2:56 AM EDT 07/01/2023 3:22 AM EDT Narrative Resulting Agency Comment Spec In Lab Terrence Keating MD HEMATOLOGY ORDERABLE S Performing Organization Address City/State/[facility] Co de Phone Number [facility] [place] [address] * (ABNORMAL) Hemogram (07/01/2023 2:56 AM EDT) WBC 6.9 4.0 - 9.5 x10(3)/[facility] LABORATORY RBC 4.04 4.00 - 5.21 x10(6)/[facility] LABORATORY Hemoglobin 12.8 11.7 - 15.5 g/dL [facility] Hematocrit 39.0 35.7 - 45.8 % [facility] MCV 96.5(H) 82.6 - 94.4 fL [facility] MCH 31.7 27.1 - 32.0 pg [facility] MCHC 32.8 31.7 - 35.0 g/dL [facility] Platelets 224 145 - 357 x10(3)/[facility] RDWSD 47.8(H) 37.0 - 46.0 fL [facility] RDWCV 13.3 11.5 - 14.1 % [facility] MPV 11.1 7.6 - 12.9 [facility] LABORATORY nRBC % Auto 0.0 % [facility] LABORATORY nRBC Abs Auto 0.000 0.000 - 0.000 x10(3)/mcL [facility] Blood 07/01/2023 2:56 AM EDT 07/01/2023 3:22 AM EDT Narrative Resulting Agency Comment Spec In Lab Terrence Keating MD HEMATOLOGY ORDERABLE S Performing Organization Address [facility]/ZIP Co de Phone Number [facility] [place] [address] * Heparin (unfractionated) Level (07/01/2023 2:56 AM EDT) Heparin UFH Level 0.56 IU/mL [facility] Comment: [...] [facility]/ZIP Co de Phone Number [facility] [place] [address] * (ABNORMAL) Basic Metabolic Panel (non-fasting) (07/01/2023 2:56 AM EDT) Glucose Lvl 95 65 - 199 mg/dL [facility] Comment:Diabetes: >=200 mg/d L plus symptoms BUN 16 8 - 18 mg/dL [facility] Creatinine 1.21(H) 0.70 - 1.20 mg/dL [facility] [...] mmol/L [facility] Calcium 9.0 8.5 - 10.5 mg/dL [facility] [...] ORDERABL ES [facility] [place] [address] * Phosphorus (07/01/2023 2:56 AM EDT) Phosphorus 4.1 2.5 - 4.5 mg/dL [facility] Blood 07/01/2023 2:56 AM EDT 07/01/2023 3:22 AM EDT Narrative Resulting Agency Comment Spec In Lab Eufemia Copeland MD CHEMISTRY ORDERABL ES Performing Organization Address [facility] Co de Phone Number [facility] [place] [address] * Magnesium (07/01/2023 2:56 AM EDT) Magnesium 0.95 0.69 - 1.07 mmol/L [facility] Blood 07/01/2023 2:56 AM EDT 07/01/2023 3:22 AM EDT Narrative Resulting Agency Comment Spec In Lab Eufemia Copeland MD CHEMISTRY ORDERABL ES Performing Organization Address [facility] Co de Phone Number [facility] [place] [address] * Heparin (unfractionated) Level (06/30/2023 9:24 AM EDT) Heparin UFH Level 0.62 IU/mL [facility] Comment: [...] Lab Ailyn Irvin MD HEMATOLOGY ORDERABLE S [facility] [place] [address] * Differential, Automated (06/30/2023 3:14 AM EDT) Neutrophils % 49.5 % [facility] Neutr Abs (ANC) 3.96 1.70 - 6.10 x10(3)/[facility] LABORATORY Lymphocytes % 36.6 % [facility] Lymphocytes Abs 2.9 0.9 - 3.2 x10(3)/[facility] LABORATORY Monocytes % 8.6 % [facility] LABORATORY Monocyte Abs 0.7 0.3 - 0.9 x10(3)/[facility] LABORATORY Eosinophils % 4.1 % [facility] Eosinophils Abs 0.3 0.0 - 0.4 x10(3)/[facility] LABORATORY Basophils % 0.8 % [place] [...] 0.04 x10(3)/[facility] LABORATORY Blood 06/30/2023 3:14 AM EDT 06/30/2023 3:23 AM EDT Narrative Resulting Agency Comment Spec In Lab Terrence Keating MD HEMATOLOGY ORDERABLE S [facility] [place] [address] * Hemogram (06/30/2023 3:14 AM EDT) WBC 8.0 4.0 - 9.5 x10(3)/[facility] LABORATORY RBC 4.22 4.00 - 5.21 x10(6)/[facility] LABORATORY Hemoglobin 13.1 11.7 - 15.5 g/dL [facility] Hematocrit 39.5 35.7 - 45.8 % [facility] MCV 93.6 82.6 - 94.4 [facility] LABORATORY MCH 31.0 27.1 - 32.0 pg [facility] MCHC 33.2 31.7 - 35.0 g/dL [facility] Platelets 235 145 - 357 x10(3)/[facility] LABORATORY RDWSD 45.3 37.0 - 46.0 [facility] LABORATORY RDWCV 13.3 11.5 - 14.1 % [facility] MPV 11.0 7.6 - 12.9 [facility] LABORATORY nRBC % Auto 0.0 % [facility] LABORATORY nRBC Abs Auto 0.000 0.000 - 0.000 x10(3)/[facility] LABORATORY Blood 06/30/2023 3:14 AM EDT 06/30/2023 3:23 AM EDT Narrative Resulting Agency Comment Spec In Lab Terrence Keating MD HEMATOLOGY ORDERABLE S [facility] [place] [address] * Heparin (unfractionated) Level (06/30/2023 3:14 AM EDT) Pathologist [facility] Heparin UFH Level 0.70 IU/mL [facility] Comment: [...] Lab Terrence Keating MD HEMATOLOGY ORDERABLE S [facility] [place] [address] * (ABNORMAL) Basic Metabolic Panel (non-fasting) (06/30/2023 [...] questions. Chloride 104 98 - 107 mmol/L [facility] [...] MD CHEMISTRY ORDERABL ES Performing Organization Address [facility] Co de Phone Number [facility] [place] [address] * Phosphorus (06/30/2023 3:14 AM EDT) Phosphorus 4.4 2.5 - 4.5 mg/dL [facility] Blood 06/30/2023 3:14 AM EDT 06/30/2023 3:23 AM EDT Narrative Resulting Agency Comment Spec In Lab Eufemia Copeland MD CHEMISTRY ORDERABL ES [facility] [place] [address] * Magnesium (06/30/2023 3:14 AM EDT) Magnesium 0.94 0.69 - 1.07 mmol/L [facility] Blood 06/30/2023 3:14 AM EDT 06/30/2023 3:23 AM EDT Narrative Resulting Agency Comment Spec In Lab Eufemia Copeland MD CHEMISTRY ORDERABL ES Performing Organization Address [facility]/ZIP Co de Phone Number [facility] [place] [address] * Heparin (unfractionated) Level (06/29/2023 8:47 PM EDT) [facility] Heparin UFH Level 0.75 IU/mL [facility] Comment: [...] MD HEMATOLOGY ORDERABLE S Performing Organization Address [facility]/ZIP Co de Phone Number [facility] [place] [address] * EKG 12 Lead (06/29/2023 12:55 PM EDT) [facility] Ventricular rate 53 BPM MUSE SYSTEM Atrial Rate 53 BPM MUSE SYSTEM P-R Interval 196 ms MUSE SYSTEM QRS Duration 90 ms MUSE SYSTEM Q-T Interval 564 ms MUSE SYSTEM QTC Calculated (Bezet) 529 ms MUSE SYSTEM Calculated P [place] 30 degrees MUSE SYSTEM Calculated R [place] 53 degrees MUSE SYSTEM Calculated T [place] 5 degrees MUSE SYSTEM INTERPRETATION Sinus bradycardia Marked ST abnormality, possible inferior subendocardial injury Prolonged QT Abnormal ECG When compared with ECG of 26-JUN-2023 06:04, Nonspecific T wave abnormality no longer evident in Anterolateral leads QT has lengthened Confirmed by MD Angelo Danette ([id number]) on 06/29/2023 8:34:43 PM MUSE SYSTEM 06/29/2023 12:5 5 PM EDT 06/29/2023 8:34 PM EDT Terrence Keating MD ECG ORDERABLES Performing Organization Address City/[facility]/ZIP Co de Phone Number MUSE SYSTEM * (ABNORMAL) Heparin (unfractionated) Level (06/29/2023 11:34 AM EDT) Heparin UFH Level 1.41(Crit ical) IU/mL [facility] [...] Lab Ailyn Irvin MD HEMATOLOGY ORDERABLE S [facility] [place] [address] * Differential, Automated (06/29/2023 2:39 AM EDT) Neutrophils % 53.8 % [facility] Neutr Abs (ANC) 4.46 1.70 - 6.10 x10(3)/mcL [facility] Lymphocytes % 33.5 % [facility] Lymphocytes Abs 2.8 0.9 - 3.2 x10(3)/[facility] Monocytes % 8.3 % [facility] Monocyte Abs 0.7 0.3 - 0.9 x10(3)/[facility] Eosinophils % 3.5 % [facility] Eosinophils Abs 0.3 0.0 - 0.4 x10(3)/[facility] Basophils % 0.5 % WHITE [...] 0.04 x10(3)/[facility] Blood 06/29/2023 2:39 AM EDT 06/29/2023 3:33 AM EDT Narrative Resulting Agency Comment Spec In Lab Terrence Keating MD HEMATOLOGY ORDERABLE S [facility] [place] [address] * Hemogram (06/29/2023 2:39 AM EDT) WBC 8.3 4.0 - 9.5 x10(3)/[facility] RBC 4.19 4.00 - 5.21 x10(6)/[facility] Hemoglobin 13.2 11.7 - 15.5 g/dL [facility] Hematocrit 38.9 35.7 - 45.8 % [facility] MCV 92.8 82.6 - 94.4 [facility] MCH 31.5 27.1 - 32.0 pg [facility] MCHC 33.9 31.7 - 35.0 g/dL [facility] Platelets 237 145 - 357 x10(3)/[facility] RDWSD 45.3 37.0 - 46.0 [facility] RDWCV 13.3 11.5 - 14.1 % [facility] MPV 11.4 7.6 - 12.9 [facility] nRBC % Auto 0.0 % [facility] nRBC Abs Auto 0.000 0.000 - 0.000 x10(3)/[facility] Blood 06/29/2023 2:39 AM EDT 06/29/2023 3:33 AM EDT Narrative Resulting Agency Comment Spec In Lab Terrence Keating MD HEMATOLOGY ORDERABLE S [facility] [place] [id number] * (ABNORMAL) Heparin (unfractionated) Level (06/29/2023 2:39 AM EDT) Heparin UFH Level 1.77(Crit ical) IU/mL [facility] Comment: Specimen drawn more than one hour prior to testing. Results may not be reliable for heparin monitoring. Result may be falsely low. Critical Result called by ?? [facility] Results read back by: ? [...] Lab Ailyn Irvin MD HEMATOLOGY ORDERABLE S [facility] [place] [address] * (ABNORMAL) Basic Metabolic Panel (non-fasting) (06/29/2023 2:39 AM EDT) Glucose Lvl 100 65 - 199 mg/dL [facility] Comment:Diabetes: >=200 mg/d L plus symptoms BUN 21(H) 8 - 18 mg/dL [facility] Creatinine 1.17 0.70 - 1.20 mg/dL [facility] MD CHEMISTRY ORDERABL ES Performing Organization Address [facility] Co de Phone Number [facility] [place] [address] * Phosphorus (06/29/2023 2:39 AM EDT) Phosphorus 4.0 2.5 - 4.5 mg/dL [facility] Blood 06/29/2023 2:39 AM EDT 06/29/2023 3:33 AM EDT Narrative Resulting Agency Comment Spec In Lab Eufemia Copeland MD CHEMISTRY ORDERABL ES Performing Organization Address [facility] [place] [address] * Magnesium (06/29/2023 2:39 AM EDT) Magnesium 0.92 0.69 - 1.07 mmol/L [facility] Blood 06/29/2023 2:39 AM EDT 06/29/2023 3:33 AM EDT Narrative Resulting Agency Comment Spec In Lab Eufemia Copeland MD CHEMISTRY ORDERABL ES Performing Organization Address [facility] Co de Phone Number [facility] [place] [address] * US Abdomen Limited (06/28/2023 12:22 PM EDT) WORKSTATION ID [id number] RAD Anatomical Region Laterality Modality Abdomen Ultrasound [...] Sigrid Owens MD, [facility] ([phone]), at 06/28/2023 2:02 PM Thank you for letting us participate in the care of this patient. If you are a health care provider and have any questions regarding this report, please contact the number above. For patients who have questions, please contact the health adult daycare coordinator that requested your imaging first. ?Sigrid Owens, E Spa Receptionist Electronically Signed Final Report ?? 06/28/2023 02:08 pm Narrative 06/28/2023 2:08 PM EDT Abdominal ? (Signed Final 06/28/2023 02:08 pm) PATIENT INFO: ID #: ? [id number] ?: ??[birth year] (53 yrs)(F) Name: ? LOIDA ?Visit Date: 06/28/2023 12:20 pm ? ROHAN PERFORMED BY: Attending: ?Graciela JOHN, Sigrid Munoz Resident: ? Karo JOHN, Rafaela Performed By: ? Rick STANFORD, ??Deena Referred By: ?AILYN Willis ROBERTCLAUDETTE Location: ? [place] SERVICE(S) PROVIDED: UABDLIM - Abdominal Limited Survey Single ? [id number] Organ or Quadrant - [id number] INDICATIONS: RUQ pain, R/o Gall bladder colic, [...] 06/28/2023 02:08 pm) PATIENT INFO: ID #: [id number] : [birth year] (53 yrs)(F) Name: LOIDA Visit Date: 06/28/2023 12:20 pm ROHAN PERFORMED BY: Attending: Sigrid Owens MD Resident: Rafaela Huddleston MD Performed By: Deena Cabrera RDMS Referred By: AILYN IRVIN Location: [place] SERVICE(S) PROVIDED: UABDLIM - Abdominal Limited Survey Single [id number] Organ or Quadrant - [id number] INDICATIONS: RUQ pain, R/o Gall bladder colic, [...] Sigrid Owens MD, [facility] ([phone]), at 06/28/2023 2:02 PM Thank you for letting us participate in the care of this patient. If you are a health care provider and have any questions regarding this report, please contact the number above. For patients who have questions, please contact the health adult daycare coordinator that requested your imaging first. Sigrid Owens, E Spa Receptionist Electronically Signed Final Report 06/28/2023 02:08 pm Ailyn Irvin MD IMG US GEN ORDERABLE S * Duplex Study Visceral Arteries, Comp (06/28/2023 10:19 AM EDT) VB Text Report Department: Vascular Surgery Lab Patient: [id number] (LOIDA ROQUE) CPT: [id number] Referring Physician: HEIDY SULLIVAN ?? Indications: abdominal pain, ? patency/stenosi s Findings: Unilateral ? Waveform ? PSV cm/s ??EDV cm/s ??Patent ?? Dary Visceral Aorta ? 80 ?16 ? Celiac Artery, Proximal ??Page-Biphasic ? 119 ?26 ? Celiac Artery, Mid ? Page-Biphasic ? 115 ?21 ? Celiac Artery, Distal ? No Vis ?? Sup Mes Artery Proximal ??Biphasic ?427 ?91 ? Sup Mes Artery Middle ?Page-Biphasic ? 100 ?17 ? Sup Mes Artery Distal ?Page-Biphasic ?64 ?15 ? Hepatic Artery ?No Vis [...] 1:52 AM EDT) Neutrophils % 55.3 % [facility] Neutr Abs (ANC) 4.46 1.70 - 6.10 x10(3)/[facility] Lymphocytes % 30.6 % [facility] Lymphocytes Abs 2.5 0.9 - 3.2 x10(3)/[facility] Monocytes % 8.8 % [facility] Monocyte Abs 0.7 0.3 - 0.9 x10(3)/[facility] Eosinophils % 4.6 % [facility] Eosinophils Abs 0.4 0.0 - 0.4 x10(3)/[facility] Basophils % 0.5 % WHITE [...] 0.04 x10(3)/[facility] Blood 06/28/2023 1:52 AM EDT 06/28/2023 2:05 AM EDT Narrative Resulting Agency Comment Spec In Lab Terrence Keating MD HEMATOLOGY ORDERABLE S [facility] [place] [address] * Hemogram (06/28/2023 1:52 AM EDT) [facility] WBC 8.1 4.0 - 9.5 x10(3)/[facility] RBC 4.30 4.00 - 5.21 x10(6)/[facility] Hemoglobin 13.4 11.7 - 15.5 g/dL [facility] Hematocrit 40.6 35.7 - 45.8 % [facility] MCV 94.4 82.6 - 94.4 fL [facility] MCH 31.2 27.1 - 32.0 pg [facility] MCHC 33.0 31.7 - 35.0 g/dL [facility] Platelets 238 145 - 357 x10(3)/[facility] RDWSD 45.7 37.0 - 46.0 [facility] RDWCV 13.2 11.5 - 14.1 % [facility] MPV 10.8 7.6 - 12.9 [facility] nRBC % Auto 0.0 % [facility] nRBC Abs Auto 0.000 0.000 - 0.000 x10(3)/[facility] Blood 06/28/2023 1:52 AM EDT 06/28/2023 2:05 AM EDT Narrative Resulting Agency Comment Spec In Lab Terrence Keating MD HEMATOLOGY ORDERABLE S [facility] [place] [address] * (ABNORMAL) Basic Metabolic Panel (non-fasting) (06/28/2023 1:52 AM EDT) [facility] Glucose Lvl 101 65 - 199 mg/dL [facility] Comment:Diabetes: >=200 mg/d L plus symptoms BUN 24(H) 8 - 18 mg/dL [facility] Creatinine 1.21(H) 0.70 - 1.20 mg/dL [facility] mmol/L [facility] Calcium 9.0 8.5 - 10.5 mg/dL [facility] ORDERABL ES [facility] [place] [address] * Phosphorus (06/28/2023 1:52 AM EDT) Phosphorus 4.5 2.5 - 4.5 mg/dL [facility] Blood 06/28/2023 1:52 AM EDT 06/28/2023 2:05 AM EDT Narrative Resulting Agency Comment Spec In Lab Eufemia Copeland MD CHEMISTRY ORDERABL ES Performing Organization Address [facility] Co de Phone Number [facility] [place] [address] * Magnesium (06/28/2023 1:52 AM EDT) Magnesium 0.93 0.69 - 1.07 mmol/L [facility] Blood 06/28/2023 1:52 AM EDT 06/28/2023 2:05 AM EDT Narrative Resulting Agency Comment Spec In Lab Eufemia Copeland MD CHEMISTRY ORDERABL ES Performing Organization Address [facility] Co de Phone Number [facility] [place] [address] * (ABNORMAL) Basic Metabolic Panel (non-fasting) (06/27/2023 8:06 PM EDT) Glucose Lvl 94 65 - 199 mg/dL [facility] Comment:Diabetes: >=200 mg/d L plus symptoms BUN 24(H) 8 - 18 mg/dL [facility] Creatinine 1.28(H) 0.70 - 1.20 mg/dL [facility] Sodium 141 135 - 145 mmol/L [facility] Potassium 4.3 3.5 - 5.0 mmol/L [facility] Comment: Please note: ??Patients with WBC >100,000 may have falsely elevated Potassium levels. ??For accurate Potassium quantification in these patients send serum separator tube (gold top) for subsequent determinations. ??Contact the Clinical Chemistry Laboratory if there are any questions. Chloride 106 98 - 107 mmol/L [facility] CO2 24 22 - 31 mmol/L [facility] Anion Gap 11 5 - 15 mmol/L [facility] Calcium 9.3 8.5 - 10.5 mg/dL [facility] Estimated GFR 50(L) >=60 mL/min/1. 73 m?? [facility] In Lab Ailyn Irvin MD CHEMISTRY ORDERABLES [facility] [place] [address] * (ABNORMAL) Hepatic Function Panel (06/27/2023 4:34 AM EDT) Total Protein 6.4 6.1 - 8.0 g/dL [facility] Albumin 3.8 3.2 - 5.2 g/dL [facility] AST 21 0 - 30 unit/L [facility] ALT 22 0 - 30 unit/L [facility] Alk Phos 56 35 - 105 unit/L [facility] Total Bilirubin <0.2(L) 0.2 - 1.3 mg/dL [facility] Bili, Direct <0.1 0.0 - 0.3 mg/dL [facility] Blood Venous Draw / Unknown 06/27/2023 4:34 AM EDT 06/27/2023 4:53 AM EDT Narrative Resulting Agency Comment Spec In Lab Ailyn Irvin MD CHEMISTRY ORDERABLES Performing Organization Address City/[facility]/ZIP Co de Phone Number [facility] [place] [address] * Differential, Automated (06/27/2023 4:34 AM EDT) Neutrophils % 52.7 % [facility] Neutr Abs (ANC) 4.01 1.70 - 6.10 x10(3)/[facility] Lymphocytes % 33.8 % [facility] Lymphocytes Abs 2.6 0.9 - 3.2 x10(3)/[facility] Monocytes % 8.8 % [facility] Monocyte Abs 0.7 0.3 - 0.9 x10(3)/[facility] Eosinophils % 3.8 % [facility] Eosinophils Abs 0.3 0.0 - 0.4 x10(3)/[facility] Basophils % 0.5 % WHITE [...] 0.04 x10(3)/[facility] Blood 06/27/2023 4:34 AM EDT 06/27/2023 4:51 AM EDT Narrative Resulting Agency Comment Spec In Lab Terrence Keating MD HEMATOLOGY ORDERABLE S Performing Organization Address City/[facility]/ZIP Co de Phone Number [facility] [place] [address] * Hemogram (06/27/2023 4:34 AM EDT) [facility] WBC 7.6 4.0 - 9.5 x10(3)/[facility] RBC 4.15 4.00 - 5.21 x10(6)/[facility] Hemoglobin 12.9 11.7 - 15.5 g/dL [facility] Hematocrit 39.0 35.7 - 45.8 % [facility] MCV 94.0 82.6 - 94.4 [facility] MCH 31.1 27.1 - 32.0 pg [facility] MCHC 33.1 31.7 - 35.0 g/dL [facility] Platelets 245 145 - 357 x10(3)/[facility] RDWSD 45.2 37.0 - 46.0 [facility] RDWCV 13.2 11.5 - 14.1 % [facility] MPV 11.2 7.6 - 12.9 [facility] nRBC % Auto 0.0 % [facility] nRBC Abs Auto 0.000 0.000 - 0.000 x10(3)/[facility] Blood 06/27/2023 4:34 AM EDT 06/27/2023 4:51 AM EDT Narrative Resulting Agency Comment Spec In Lab Terrence Keating MD HEMATOLOGY ORDERABLE S [facility] [place] [address] * (ABNORMAL) Basic Metabolic Panel (non-fasting) (06/27/2023 4:34 AM EDT) [facility] Glucose Lvl 99 65 - 199 mg/dL [facility] Comment:Diabetes: >=200 mg/d L plus symptoms BUN 26(H) 8 - 18 mg/dL [facility] ORDERABL ES [facility] [place] [address] * (ABNORMAL) Phosphorus (06/27/2023 4:34 AM EDT) Phosphorus 4.7(H) 2.5 - 4.5 mg/dL [facility] Blood 06/27/2023 4:34 AM EDT 06/27/2023 4:51 AM EDT Narrative Resulting Agency Comment Spec In Lab Eufemia Copeland MD CHEMISTRY ORDERABL ES Performing Organization Address City/[facility]/ZIP Co de Phone Number [facility] [place] [address] * Magnesium (06/27/2023 4:34 AM EDT) Pathologist [facility] Magnesium 0.90 0.69 - 1.07 mmol/L [facility] Blood 06/27/2023 4:34 AM EDT 06/27/2023 4:51 AM EDT Narrative Resulting Agency Comment Spec In Lab Eufemia Copeland MD CHEMISTRY ORDERABL ES Performing Organization Address [facility] Co de Phone Number [facility] [place] [address] * (ABNORMAL) Basic Metabolic Panel (non-fasting) (06/26/2023 4:58 PM EDT) Pathologist [facility] Glucose Lvl 106 65 - 199 mg/dL [facility] Comment:Diabetes: >=200 mg/d L plus symptoms BUN 24(H) 8 - 18 mg/dL [facility] Creatinine 1.23(H) 0.70 - 1.20 mg/dL [facility] Sodium 138 135 - 145 mmol/L [facility] Potassium 4.2 3.5 - 5.0 mmol/L [facility] Comment: Please note: ??Patients with WBC >100,000 may have falsely elevated Potassium levels. ??For accurate Potassium quantification in these patients send serum separator tube (gold top) for subsequent determinations. ??Contact the Clinical Chemistry Laboratory if there are any questions. Chloride 104 98 - 107 mmol/L [facility] CO2 21(L) 22 - 31 mmol/L [facility] Anion Gap 13 5 - 15 mmol/L [facility] Calcium 9.1 8.5 - 10.5 mg/dL [facility] Estimated GFR 52(L) >=60 mL/min/1. 73 m?? [facility]/ZIP Co de Phone Number [facility] [place] [address] * Urinalysis Microscopic Exam (06/26/2023 11:09 AM EDT) RBC UA 0 0 - 4 /HPF [facility] WBC UA 3 0 - 5 /HPF [facility] Squam Epith UA 1 <=4 /HPF [facility] Hyaline Cast UA 1 0 - 2 /LPF [facility] Clean Catch Urine 06/26/2023 11:09 AM EDT 06/26/2023 5:45 PM EDT Narrative Resulting Agency Comment Spec In Lab Ailyn Irvin MD URINE ORDERABLES Performing Organization Address City/[facility]/ZIP Co de Phone Number [facility] [place] [address] * (ABNORMAL) Urinalysis with reflex Culture (06/26/2023 11:09 AM EDT) Glucose UA Negative Negative mg/dL [facility] Protein UA Negative Negative mg/dL [facility] Bilirubin UA Negative Negative mg/dL [facility] Comment: Clinical correlation required for positive Urine Bilirubin results as false positive may occur with some drugs and drug related products. If a false positive is suspected a serum total bilirubin should be considered if clinically indicated. Urobilinogen UA Normal Normal mg/dL [facility] pH UA 6.0 5.0 - 8.0 [facility] Blood UA Negative Negative mg/dL [facility] Ketones UA Negative Negative mg/dL [facility] Nitrite UA Negative Negative [facility] Leukocytes UA Trace(A) Negative [facility] Appearance UA Clear Clear [facility] Spec [place] UA 1.013 1.005 - 1.030 [facility] Color UA Yellow Yellow [facility] Culture Reflexed No [facility] Clean Catch Urine 06/26/2023 11:09 AM EDT 06/26/2023 5:45 PM EDT Narrative Resulting Agency Comment Spec In Lab Aliyn Irvin MD URINE ORDERABLES [facility] [place] [address] * EKG 12 Lead (06/26/2023 6:04 AM EDT) Ventricular rate 46 BPM MUSE SYSTEM Atrial Rate 46 BPM MUSE SYSTEM P-R Interval 204 ms MUSE SYSTEM QRS Duration 90 ms MUSE SYSTEM Q-T Interval 466 ms MUSE SYSTEM QTC Calculated (Bezet) 407 ms MUSE SYSTEM Calculated P [place] 38 degrees MUSE SYSTEM Calculated R [place] 48 degrees MUSE SYSTEM Calculated T [place] 13 degrees MUSE SYSTEM INTERPRETATION Sinus bradycardia Nonspecific ST and T wave abnormality Abnormal ECG When compared with ECG of 23-JUN-2023 09:54, No significant change was found Confirmed by MD Dalia, Willy Huerta ([id number]) on 06/29/2023 6:09:20 AM MUSE SYSTEM 06/26/2023 6:04 AM EDT 06/29/2023 6:09 AM EDT Eufemia Copeland MD ECG ORDERABLES MUSE SYSTEM * Differential, Automated (06/26/2023 4:06 AM EDT) Neutrophils % 55.3 % [facility] Neutr Abs (ANC) 4.63 1.70 - 6.10 x10(3)/[facility] Lymphocytes % 32.6 % [facility] Lymphocytes Abs 2.7 0.9 - 3.2 x10(3)/[facility] Monocytes % 8.2 % [facility] Monocyte Abs 0.7 0.3 - 0.9 x10(3)/[facility] Eosinophils % 3.2 % [facility] Eosinophils Abs 0.3 0.0 - 0.4 x10(3)/[facility] Basophils % 0.5 % WHITE [...] 0.04 x10(3)/[facility] Blood 06/26/2023 4:06 AM EDT 06/26/2023 4:18 AM EDT Narrative Resulting Agency Comment Spec In Lab Terrence Keating MD HEMATOLOGY ORDERABLE S [facility] [place] [address] * (ABNORMAL) Hemogram (06/26/2023 4:06 AM EDT) Pathologist [facility] WBC 8.4 4.0 - 9.5 x10(3)/[facility] RBC 4.52 4.00 - 5.21 x10(6)/[facility] Hemoglobin 14.0 11.7 - 15.5 g/dL [facility] Hematocrit 43.6 35.7 - 45.8 % [facility] MCV 96.5(H) 82.6 - 94.4 fL [facility] MCH 31.0 27.1 - 32.0 pg [facility] MCHC 32.1 31.7 - 35.0 g/dL [facility] Platelets 258 145 - 357 x10(3)/[facility] RDWSD 46.7(H) 37.0 - 46.0 [facility] RDWCV 13.2 11.5 - 14.1 % [facility] MPV 11.1 7.6 - 12.9 [facility] nRBC % Auto 0.0 % [facility] nRBC Abs Auto 0.000 0.000 - 0.000 x10(3)/[facility] Blood 06/26/2023 4:06 AM EDT 06/26/2023 4:18 AM EDT Narrative Resulting Agency Comment Spec In Lab Terrence Keating MD HEMATOLOGY ORDERABLE S [facility] [place] [address] * (ABNORMAL) Basic Metabolic Panel (non-fasting) (06/26/2023 4:06 AM EDT) Pathologist [facility] Glucose Lvl 100 65 - 199 mg/dL [facility] Comment:Diabetes: >=200 mg/d L plus symptoms BUN 25(H) 8 - 18 mg/dL [facility] Creatinine 1.24(H) 0.70 - 1.20 mg/dL [facility] Sodium 135 135 - 145 mmol/L [facility] Potassium 4.2 3.5 - 5.0 mmol/L [facility] Comment: Please note: ??Patients with WBC >100,000 may have falsely elevated Potassium levels. ??For accurate Potassium quantification in these patients send serum separator tube (gold top) for subsequent determinations. ??Contact the Clinical Chemistry Laboratory if there are any questions. Chloride 104 98 - 107 mmol/L [facility] CO2 19(L) 22 - 31 mmol/L [facility] Anion Gap 12 5 - 15 mmol/L [facility] Calcium 9.6 8.5 - 10.5 mg/dL [facility] Estimated GFR 52(L) >=60 mL/min/1. 73 m?? [facility] ORDERABL ES [facility] [place] [address] * Phosphorus (06/26/2023 4:06 AM EDT) Phosphorus 4.3 2.5 - 4.5 mg/dL [facility] Blood 06/26/2023 4:06 AM EDT 06/26/2023 4:18 AM EDT Narrative Resulting Agency Comment Spec In Lab Eufemia Copeland MD CHEMISTRY ORDERABL ES Performing Organization Address City/[facility]/ZIP Co de Phone Number [facility] [place] [address] * Magnesium (06/26/2023 4:06 AM EDT) Pathologist [facility] Magnesium 0.96 0.69 - 1.07 mmol/L [facility] Blood 06/26/2023 4:06 AM EDT 06/26/2023 4:18 AM EDT Narrative Resulting Agency Comment Spec In Lab Eufemia Copeland MD CHEMISTRY ORDERABL ES Performing Organization Address [facility] de Phone Number [facility] [place] [address] * Differential, Automated (06/25/2023 1:50 AM EDT) [facility] Neutrophils % 56.2 % [facility] Neutr Abs (ANC) 4.06 1.70 - 6.10 x10(3)/[facility] Lymphocytes % 30.5 % [facility] Lymphocytes Abs 2.2 0.9 - 3.2 x10(3)/[facility] Monocytes % 8.7 % [facility] Monocyte Abs 0.6 0.3 - 0.9 x10(3)/[facility] Eosinophils % 3.9 % [facility] Eosinophils Abs 0.3 0.0 - 0.4 x10(3)/[facility] Basophils % 0.6 % WH[facility] [...] 0.04 x10(3)/[facility] Blood 06/25/2023 1:50 AM EDT 06/25/2023 2:16 AM EDT Narrative Resulting Agency Comment Spec In Lab Terrence Keating MD HEMATOLOGY ORDERABLE S [facility] [place] [address] * Hemogram (06/25/2023 1:50 AM EDT) WBC 7.2 4.0 - 9.5 x10(3)/[facility] RBC 4.57 4.00 - 5.21 x10(6)/[facility] Hemoglobin 14.4 11.7 - 15.5 g/dL [facility] Hematocrit 42.9 35.7 - 45.8 % [facility] MCV 93.9 82.6 - 94.4 fL [facility] MCH 31.5 27.1 - 32.0 pg [facility] MCHC 33.6 31.7 - 35.0 g/dL [facility] Platelets 241 145 - 357 x10(3)/[facility] RDWSD 44.7 37.0 - 46.0 fL [facility] RDWCV 13.2 11.5 - 14.1 % [facility] MPV 11.5 7.6 - 12.9 fL [facility] nRBC % Auto 0.0 % [facility] nRBC Abs Auto 0.000 0.000 - 0.000 x10(3)/[facility] Blood 06/25/2023 1:50 AM EDT 06/25/2023 2:16 AM EDT Narrative Resulting Agency Comment Spec In Lab Terrence Keating MD HEMATOLOGY ORDERABLE S [facility] [place] [address] * (ABNORMAL) Basic Metabolic Panel (non-fasting) (06/25/2023 1:50 AM EDT) Glucose Lvl 99 65 - 199 mg/dL [facility] Comment:Diabetes: >=200 mg/d L plus symptoms BUN 20(H) 8 - 18 mg/dL [facility] Creatinine 1.59(H) 0.70 - 1.20 mg/dL [facility] Estimated GFR 38(L) >=60 mL/min/1. 73 m?? [facility] [...] MD CHEMISTRY ORDERABL ES Performing Organization Address [facility] Co de Phone Number [facility] [place] [address] * Phosphorus (06/25/2023 1:50 AM EDT) Phosphorus 4.4 2.5 - 4.5 mg/dL [facility] Blood 06/25/2023 1:50 AM EDT 06/25/2023 2:16 AM EDT Narrative Resulting Agency Comment Spec In Lab Eufemia Copeland MD CHEMISTRY ORDERABL ES Performing Organization Address [facility] Co de Phone Number [facility] [place] [address] * Magnesium (06/25/2023 1:50 AM EDT) Magnesium 0.99 0.69 - 1.07 mmol/L [facility] Blood 06/25/2023 1:50 AM EDT 06/25/2023 2:16 AM EDT Narrative Resulting Agency Comment Spec In Lab Eufemia Copeland MD CHEMISTRY ORDERABL ES Performing Organization Address [facility] de Phone Number [facility] [place] [address] * (ABNORMAL) pro-Brain Natriuretic Peptide (06/24/2023 3:38 AM EDT) ProBNP 1,239(H) <=124 pg/mL [facility] Blood Venous Draw / Unknown 06/24/2023 3:38 AM EDT 06/24/2023 3:49 AM EDT Narrative Resulting Agency Comment Spec In Lab Ailyn K Battula MD CHEMISTRY ORDERABLES Performing Organization Address City/[facility]/ZIP Co de Phone Number [facility] [place] [address] * Differential, Automated (06/24/2023 3:38 AM EDT) Neutrophils % 51.6 % [facility] Neutr Abs (ANC) 3.54 1.70 - 6.10 x10(3)/[facility] Lymphocytes % 36.0 % [facility] Lymphocytes Abs 2.5 0.9 - 3.2 x10(3)/[facility] Monocytes % 7.8 % [facility] Monocyte Abs 0.5 0.3 - 0.9 x10(3)/[facility] Eosinophils % 3.6 % [facility] Eosinophils Abs 0.2 0.0 - 0.4 x10(3)/[facility] Basophils % 0.7 % [place] [...] 0.04 x10(3)/[facility] Blood 06/24/2023 3:38 AM EDT 06/24/2023 3:49 AM EDT Narrative Resulting Agency Comment Spec In Lab Terrence Keating MD HEMATOLOGY ORDERABLE S Performing Organization Address City/[facility]/ZIP Co de Phone Number [facility] [place] [address] * Hemogram (06/24/2023 3:38 AM EDT) WBC 6.9 4.0 - 9.5 x10(3)/[facility] RBC 4.36 4.00 - 5.21 x10(6)/[facility] Hemoglobin 13.6 11.7 - 15.5 g/dL [facility] Hematocrit 40.7 35.7 - 45.8 % [facility] MCV 93.3 82.6 - 94.4 [facility] MCH 31.2 27.1 - 32.0 pg [facility] MCHC 33.4 31.7 - 35.0 g/dL [facility] Platelets 220 145 - 357 x10(3)/[facility] RDWSD 44.5 37.0 - 46.0 [facility] RDWCV 13.0 11.5 - 14.1 % [facility] MPV 10.8 7.6 - 12.9 [facility] nRBC % Auto 0.0 % [facility] nRBC Abs Auto 0.000 0.000 - 0.000 x10(3)/[facility] Blood 06/24/2023 3:38 AM EDT 06/24/2023 3:49 AM EDT Narrative Resulting Agency Comment Spec In Lab Terrence Keating MD HEMATOLOGY ORDERABLE S [facility] [place] [address] * Heparin (unfractionated) Level (06/24/2023 3:38 AM EDT) Pathologist [facility] Heparin UFH Level 0.44 IU/mL [facility] Comment: [...] Lab Terrence Keating MD HEMATOLOGY ORDERABLE S [facility] [place] [address] * (ABNORMAL) Basic Metabolic Panel (non-fasting) (06/24/2023 3:38 AM EDT) Glucose Lvl 96 65 - 199 mg/dL [facility] Comment:Diabetes: >=200 mg/d L plus symptoms BUN 20(H) 8 - 18 mg/dL [facility] Creatinine 1.14 0.70 - 1.20 mg/dL [facility] Sodium 138 135 - 145 mmol/L [facility] Potassium 4.2 3.5 - 5.0 mmol/L [facility] Comment: Please note: ??Patients with WBC >100,000 may have falsely elevated Potassium levels. ??For accurate Potassium quantification in these patients send serum separator tube (gold top) for subsequent determinations. ??Contact the Clinical Chemistry Laboratory if there are any questions. Chloride 104 98 - 107 mmol/L [facility] CO2 21(L) 22 - 31 mmol/L [facility] Anion Gap 13 5 - 15 mmol/L [facility] [...] MD CHEMISTRY ORDERABL ES Performing Organization Address [facility] Co de Phone Number [facility] [place] [address] * Phosphorus (06/24/2023 3:38 AM EDT) Phosphorus 4.1 2.5 - 4.5 mg/dL [facility] Blood 06/24/2023 3:38 AM EDT 06/24/2023 3:49 AM EDT Narrative Resulting Agency Comment Spec In Lab Eufemia Copeland MD CHEMISTRY ORDERABL ES Performing Organization Address [facility] Co de Phone Number [facility] [place] [address] * Magnesium (06/24/2023 3:38 AM EDT) Magnesium 0.96 0.69 - 1.07 mmol/L [facility] Blood 06/24/2023 3:38 AM EDT 06/24/2023 3:49 AM EDT Narrative Resulting Agency Comment Spec In Lab Eufemia Copeland MD CHEMISTRY ORDERABL ES Performing Organization Address [facility] Co de Phone Number [facility] [place] [address] * Heparin (unfractionated) Level (06/23/2023 9:24 PM EDT) Heparin UFH Level 0.51 IU/mL [facility] Comment: [...] Lab Terrence Keating MD HEMATOLOGY ORDERABLE S [facility] [place] [address] * Duplex Study Visceral Arteries, Comp (06/23/2023 3:36 PM EDT) Pathologist [facility] VB Text Report Department: Vascular Surgery Lab Patient: [id number] (ROHAN LOIDA) CPT: [id number] Referring Physician: AILYN IRVIN ?? Phone: Indications: [...] PM EDT) Heparin UFH Level 0.90 IU/mL [facility] Comment: [...] Lab Terrence Keating MD HEMATOLOGY ORDERABLE S [facility] [place] [address] * EKG 12 Lead (06/23/2023 9:54 AM EDT) Ventricular rate 48 BPM MUSE SYSTEM Atrial Rate 48 BPM MUSE SYSTEM P-R Interval 192 ms MUSE SYSTEM QRS Duration 92 ms MUSE SYSTEM Q-T Interval 462 ms MUSE SYSTEM QTC Calculated (Bezet) 412 ms MUSE SYSTEM Calculated P [place] 21 degrees MUSE SYSTEM Calculated R [place] 20 degrees MUSE SYSTEM Calculated T [place] 16 degrees MUSE SYSTEM INTERPRETATION Sinus bradycardia [...] 4:12 AM EDT) Neutrophils % 52.8 % [facility] Neutr Abs (ANC) 4.30 1.70 - 6.10 x10(3)/mcL [facility] Lymphocytes % 33.9 % [facility] Lymphocytes Abs 2.8 0.9 - 3.2 x10(3)/[facility] Monocytes % 8.3 % [facility] Monocyte Abs 0.7 0.3 - 0.9 x10(3)/[facility] Eosinophils % 3.9 % [facility] Eosinophils Abs 0.3 0.0 - 0.4 x10(3)/[facility] Basophils % 0.7 % [place] [...] 0.04 x10(3)/[facility] Blood 06/23/2023 4:12 AM EDT 06/23/2023 4:38 AM EDT Narrative Resulting Agency Comment Spec In Lab Terrence Keating MD HEMATOLOGY ORDERABLE S [facility] [place] [address] * Hemogram (06/23/2023 4:12 AM EDT) WBC 8.2 4.0 - 9.5 x10(3)/[facility] RBC 4.59 4.00 - 5.21 x10(6)/[facility] Hemoglobin 14.3 11.7 - 15.5 g/dL [facility] Hematocrit 43.1 35.7 - 45.8 % [facility] MCV 93.9 82.6 - 94.4 fL [facility] MCH 31.2 27.1 - 32.0 pg [facility] MCHC 33.2 31.7 - 35.0 g/dL [facility] Platelets 233 145 - 357 x10(3)/[facility] RDWSD 44.2 37.0 - 46.0 fL [facility] RDWCV 13.0 11.5 - 14.1 % [facility] MPV 11.3 7.6 - 12.9 fL [facility] nRBC % Auto 0.0 % [facility] nRBC Abs Auto 0.000 0.000 - 0.000 x10(3)/[facility] Blood 06/23/2023 4:12 AM EDT 06/23/2023 4:38 AM EDT Narrative Resulting Agency Comment Spec In Lab Terrence Keating MD HEMATOLOGY ORDERABLE S Performing Organization Address City/State/[facility] Co de Phone Number [facility] [place] [address] * (ABNORMAL) Heparin (unfractionated) Level (06/23/2023 4:12 AM EDT) Heparin UFH Level 1.95(Crit ical) IU/mL [facility] Comment: Critical Result called by ?Peter [...] Lab Terrence Keating MD HEMATOLOGY ORDERABLE S [facility] [place] [address] * (ABNORMAL) Basic Metabolic Panel (non-fasting) (06/23/2023 4:12 AM EDT) Glucose Lvl 87 65 - 199 mg/dL [facility] Comment:Diabetes: >=200 mg/d L plus symptoms BUN 23(H) 8 - 18 mg/dL [facility] Creatinine 1.08 0.70 - 1.20 mg/dL [facility] [...] [facility] Estimated GFR 61 >=60 mL/min/1. 73 m?? [facility] [...] MD CHEMISTRY ORDERABL ES Performing Organization Address [facility] Co de Phone Number [facility] [place] [address] * Phosphorus (06/23/2023 4:12 AM EDT) Phosphorus 4.5 2.5 - 4.5 mg/dL [facility] Blood 06/23/2023 4:12 AM EDT 06/23/2023 4:38 AM EDT Narrative Resulting Agency Comment Spec In Lab Eufemia Copeland MD CHEMISTRY ORDERABL ES Performing Organization Address [facility] Co de Phone Number [facility] [place] [address] * Magnesium (06/23/2023 4:12 AM EDT) Magnesium 1.03 0.69 - 1.07 mmol/L [facility] Blood 06/23/2023 4:12 AM EDT 06/23/2023 4:38 AM EDT Narrative Resulting Agency Comment Spec In Lab Eufemia Copeland MD CHEMISTRY ORDERABL ES Performing Organization Address [facility] Co de Phone Number [facility] [place] [address] * ECHO LMTD W CONTRAST W LMTD SPEC DOPP COLOR DOPP (06/22/2023 4:25 PM EDT) Anatomical Region Laterality Modality Cardiac Other 06/22/2023 2:49 PM EDT Narrative 06/22/2023 4:42 PM EDT [address] [place] [address] ? Echocardiogram Report Name: LOIDA ROQUE ?Study Date: 06/22/2023 02:49 PM ?Patient Location: [place] [address] A ??HR: 57 : 1970 ?Height: 162 cm ? Account: [id number] Age: 53 yrs ?Weight: 102 kg Gender: [...] slight decrease in LV systolic function. Procedure Complete-99027. Satisfactory quality. There is normal sinus rhythm. [...] Procedure Note Jose Gallegos MD - 06/22/[address] [place] [address] Echocardiogram Report Name: LOIDA ROQUE Study Date: 06/22/2023 02:49 PM Patient Location: [place] [address] A HR:57 : 1970 Height: 162 cmAccount: [id number] Age: 53 yrs Weight: 102 kg Gender: [...] a slightdecrease in LV systolic function. Procedure Complete-[id number]. Satisfactory quality. There is normal sinus rhythm. [...] PM EDT) Troponin-T HS 22(H) <=14 ng/L [facility] Comment: [...] can be found in the [facility] Laboratory Test Catalog Troponin - [facility] Test Catalog Reference: Fourth [place] Definition of Myocardial Infarction. Journal of the [place] [employer] 2018;72:5657-5463 Blood 06/22/2023 2:38 PM EDT 06/22/2023 2:50 PM EDT Narrative Resulting Agency Comment Spec In Lab Ailyn Irvin MD CHEMISTRY ORDERABLES Performing Organization Address [facility]/ZIP Co de Phone Number [facility] [place] [address] * Duplex for DVT, Arm, Unilat (06/22/2023 2:24 PM EDT) VB Text Report Department: Vascular Surgery Lab Patient: [id number] (LOIDA ROQUE) CPT: [id number] Referring Physician: AILYN IRVIN ?? Phone: Indications: [...] Irvin MD VASCULAR ORDERABLES Performing Organization Address City/[facility]/ZIP Co de Phone Number [email or web address] * XR [...] who have questions please contact the health adult daycare coordinator that requested your imaging first. ? Electronically signed by: Itz Hayward MD, [facility] ??([phone]), at 06/22/2023 11:47 AM Narrative 06/22/2023 11:47 [...] patients who have questions please contactthe health adult daycare coordinator that requested your imaging first. Ailyn Irvin MD IMG DX ORDERABLES * (ABNORMAL) Troponin (06/22/2023 11:24 AM EDT) Troponin-T HS 22(H) <=14 ng/L [facility] Comment: [...] can be found in the [facility] Laboratory Test Catalog Troponin - [facility] Test Catalog Reference: Fourth [place] Definition of Myocardial Infarction. Journal of the [place] [employer] 2018;72:1965-0643 Blood 06/22/2023 11:2 4 AM EDT 06/22/2023 11:44 AM EDT Narrative Resulting Agency Comment Spec In Lab Ailyn Irvin MD CHEMISTRY ORDERABLES [facility] [place] [address] * EKG 12 Lead (06/22/2023 11:13 AM EDT) Ventricular rate 63 BPM MUSE SYSTEM Atrial Rate 63 BPM MUSE SYSTEM P-R Interval 162 ms MUSE SYSTEM QRS Duration 86 ms MUSE SYSTEM Q-T Interval 382 ms MUSE SYSTEM QTC Calculated (Bezet) 390 ms MUSE SYSTEM Calculated P [place] 24 degrees MUSE SYSTEM Calculated R [place] 32 degrees MUSE SYSTEM Calculated T [place] -2 degrees MUSE SYSTEM INTERPRETATION Normal sinus rhythm Septal infarct (cited on or before 22-JUN-2023) Possible Lateral infarct , age undetermined ST & T wave abnormality, consider inferolateral ischemia Abnormal ECG When compared with ECG of 22-JUN-2023 10:55, No significant change was found Confirmed by MD Angelo Danette ([id number]) on 06/22/2023 3:56:31 PM MUSE SYSTEM 06/22/2023 [...] (Bezet) 411 ms MUSE SYSTEM Calculated P [place] 22 degrees MUSE SYSTEM Calculated R [place] 20 degrees MUSE SYSTEM Calculated T [place] 10 degrees MUSE SYSTEM INTERPRETATION Sinus bradycardia Septal infarct , age undetermined ST & T wave abnormality, consider inferolateral ischemia Abnormal ECG When compared with ECG of 21-JUN-2023 10:06, Septal infarct is now Present Confirmed by MD Angelo Danette ([id number]) on 06/22/2023 3:55:53 PM MUSE SYSTEM 06/22/2023 10:5 5 AM EDT 06/22/2023 3:55 PM EDT Ailyn Irvin MD ECG ORDERABLES Performing Organization Address City/[facility] Co de Phone Number MUSE SYSTEM * Differential, Automated (06/22/2023 4:34 AM EDT) Neutrophils % 54.4 % [facility] Neutr Abs (ANC) 4.07 1.70 - 6.10 x10(3)/[facility] Lymphocytes % 30.6 % [facility] Lymphocytes Abs 2.3 0.9 - 3.2 x10(3)/[facility] Monocytes % 9.9 % [facility] Monocyte Abs 0.7 0.3 - 0.9 x10(3)/[facility] Eosinophils % 4.3 % [facility] Eosinophils Abs 0.3 0.0 - 0.4 x10(3)/[facility] Basophils % 0.7 % [place] [...] 0.04 x10(3)/[facility] Blood 06/22/2023 4:34 AM EDT 06/22/2023 4:42 AM EDT Narrative Resulting Agency Comment Spec In Lab Terrence Keating MD HEMATOLOGY ORDERABLE S [facility] [place] [address] * (ABNORMAL) Hemogram (06/22/2023 4:34 AM EDT) WBC 7.5 4.0 - 9.5 x10(3)/[facility] RBC 4.04 4.00 - 5.21 x10(6)/[facility] Hemoglobin 12.8 11.7 - 15.5 g/dL [facility] Hematocrit 39.1 35.7 - 45.8 % [facility] MCV 96.8(H) 82.6 - 94.4 fL [facility] MCH 31.7 27.1 - 32.0 pg [facility] MCHC 32.7 31.7 - 35.0 g/dL [facility] Platelets 225 145 - 357 x10(3)/[facility] RDWSD 45.9 37.0 - 46.0 fL [facility] RDWCV 13.0 11.5 - 14.1 % [facility] MPV 10.6 7.6 - 12.9 fL [facility] nRBC % Auto 0.0 % [facility] nRBC Abs Auto 0.000 0.000 - 0.000 x10(3)/mcL [facility] Blood 06/22/2023 4:34 AM EDT 06/22/2023 4:42 AM EDT Narrative Resulting Agency Comment Spec In Lab Terrence Keating MD HEMATOLOGY ORDERABLE S [facility] [place] [address] * (ABNORMAL) Basic Metabolic Panel (non-fasting) (06/22/2023 4:34 AM EDT) Glucose Lvl 94 65 - 199 mg/dL [facility] Anion Gap 17(H) 5 - 15 mmol/L [facility] [...] MD CHEMISTRY ORDERABL ES Performing Organization Address [facility]/ZIP Co de Phone Number [facility] [place] [address] * (ABNORMAL) Phosphorus (06/22/2023 4:34 AM EDT) Phosphorus 4.9(H) 2.5 - 4.5 mg/dL [facility] Blood 06/22/2023 4:34 AM EDT 06/22/2023 4:42 AM EDT Narrative Resulting Agency Comment Spec In Lab Eufemia Copeland MD CHEMISTRY ORDERABL ES Performing Organization Address [facility] Co de Phone Number [facility] [place] [address] * Magnesium (06/22/2023 4:34 AM EDT) Magnesium 1.02 0.69 - 1.07 mmol/L [facility] Blood 06/22/2023 4:34 AM EDT 06/22/2023 4:42 AM EDT Narrative Resulting Agency Comment Spec In Lab Eufemia Copeland MD CHEMISTRY ORDERABL ES Performing Organization Address [facility]/ZIP Co de Phone Number [facility] [place] [address] * CT Abdomen & Pelvis w Contrast [...] who have questions please contact the health adult daycare coordinator that requested your imaging first. ? [...] patients who have questions please contactthe health adult daycare coordinator that requested your imaging first. Eufemia Ramachandra MD IMG CT ORDERABLES * EKG 12 Lead (06/21/2023 10:06 AM EDT) Ventricular rate 51 BPM MUSE SYSTEM Atrial Rate 51 BPM MUSE SYSTEM P-R Interval 176 ms MUSE SYSTEM QRS Duration 92 ms MUSE SYSTEM Q-T Interval 450 ms MUSE SYSTEM QTC Calculated (Bezet) 414 ms MUSE SYSTEM Calculated P [place] 17 degrees MUSE SYSTEM Calculated R [place] 35 degrees MUSE SYSTEM Calculated T [place] 13 degrees MUSE SYSTEM INTERPRETATION Sinus bradycardia [...] AM EDT) Troponin-T HS 22(H) <=14 ng/L [facility] Comment: [...] can be found in the [facility] Laboratory Test Catalog Troponin - [facility] Laboratory Test Catalog Reference: Fourth [place] Definition of Myocardial Infarction. Journal of the [place] [employer] 2018;72:6206-8464 Blood 06/21/2023 9:45 AM EDT 06/21/2023 10:08 AM EDT Narrative Resulting Agency Comment Spec In Lab Eufemia Copeland MD CHEMISTRY ORDERABL ES Performing Organization Address [facility] Co de Phone Number [facility] [place] [address] * (ABNORMAL) pro-Brain Natriuretic Peptide (06/21/2023 5:58 AM EDT) ProBNP 1,370(H) <=124 pg/mL [facility] Blood Venous Draw / Unknown 06/21/2023 5:58 AM EDT 06/21/2023 7:28 AM EDT Narrative Resulting Agency Comment Spec In Lab Eufemia Copeland MD CHEMISTRY ORDERABL ES Performing Organization Address [facility] Co de Phone Number [facility] [place] [address] * Potassium (06/21/2023 5:58 AM EDT) Potassium 4.0 3.5 - 5.0 mmol/L [facility] [...] ORDERABL ES [facility] [place] [address] * Differential, Automated (06/21/2023 3:25 AM EDT) Neutrophils % 54.0 % [facility] Neutr Abs (ANC) 5.02 1.70 - 6.10 x10(3)/[facility] Lymphocytes % 31.8 % [facility] Lymphocytes Abs 3.0 0.9 - 3.2 x10(3)/[facility] Monocytes % 8.9 % [facility] Monocyte Abs 0.8 0.3 - 0.9 x10(3)/[facility] Eosinophils % 4.2 % [facility] Eosinophils Abs 0.4 0.0 - 0.4 x10(3)/[facility] Basophils % 0.8 % [place] [...] 0.04 x10(3)/[facility] Blood 06/21/2023 3:25 AM EDT 06/21/2023 3:45 AM EDT Narrative Resulting Agency Comment Spec In Lab Terrence Keating MD HEMATOLOGY ORDERABLE S [facility] [place] [address] * Hemogram (06/21/2023 3:25 AM EDT) WBC 9.3 4.0 - 9.5 x10(3)/[facility] RBC 4.74 4.00 - 5.21 x10(6)/[facility] Hemoglobin 14.9 11.7 - 15.5 g/dL [facility] Hematocrit 44.2 35.7 - 45.8 % [facility] MCV 93.2 82.6 - 94.4 fL [facility] MCH 31.4 27.1 - 32.0 pg [facility] MCHC 33.7 31.7 - 35.0 g/dL [facility] Platelets 279 145 - 357 x10(3)/[facility] RDWSD 44.7 37.0 - 46.0 [facility] RDWCV 13.1 11.5 - 14.1 % [facility] MPV 11.1 7.6 - 12.9 [facility] nRBC % Auto 0.0 % [facility] nRBC Abs Auto 0.000 0.000 - 0.000 x10(3)/[facility] Blood 06/21/2023 3:25 AM EDT 06/21/2023 3:45 AM EDT Narrative Resulting Agency Comment Spec In Lab Terrence Keating MD HEMATOLOGY ORDERABLE S [facility] [place] [address] * (ABNORMAL) Basic Metabolic Panel (non-fasting) (06/21/2023 3:25 AM EDT) Glucose Lvl 95 65 - 199 mg/dL [facility] Comment:Diabetes: >=200 mg/d L plus symptoms BUN 27(H) 8 - 18 mg/dL [facility] Creatinine 1.11 0.70 - 1.20 mg/dL [facility] Estimated GFR 59(L) >=60 mL/min/1. 73 m?? [facility] ORDERABL ES [facility] [place] [address] * (ABNORMAL) Phosphorus (06/21/2023 3:25 AM EDT) Phosphorus 5.1(H) 2.5 - 4.5 mg/dL [facility] Blood 06/21/2023 3:25 AM EDT 06/21/2023 3:45 AM EDT Narrative Resulting Agency Comment Spec In Lab Eufemia Copeland MD CHEMISTRY ORDERABL ES Performing Organization Address City/[facility]/ZIP Co de Phone Number [facility] [place] [address] * Magnesium (06/21/2023 3:25 AM EDT) Magnesium 1.04 0.69 - 1.07 mmol/L [facility] Blood 06/21/2023 3:25 AM EDT 06/21/2023 3:45 AM EDT Narrative Resulting Agency Comment Spec In Lab Eufemia Copeland MD CHEMISTRY ORDERABL ES Performing Organization Address [facility] Co de Phone Number [facility] [place] [address] * (ABNORMAL) Differential, Automated (06/20/2023 3:32 AM EDT) [facility] Neutrophils % 52.5 % [facility] Neutr Abs (ANC) 5.28 1.70 - 6.10 x10(3)/ L [facility] Lymphocytes % 32.4 % [facility] Lymphocytes Abs 3.3(H) 0.9 - 3.2 x10(3)/ L [facility] Monocytes % 9.7 % [facility] Monocyte Abs 1.0(H) 0.3 - 0.9 x10(3)/mc L [facility] Eosinophils % 4.3 % [facility] Eosinophils Abs 0.4 0.0 - 0.4 x10(3)/ L [facility] Basophils % 0.7 % [facility] Basophils Abs 0.1 0.0 - 0.1 x10(3)/ L [facility] Immature Gran % 0.40 % [facility] Comment: Immature granulocytes(IG's)percentage and absolute count will include metamyelocytes, myelocytes, and promyelocytes. Blood smears from CBCs yielding IG's will be scanned manually for concordance. If this scan disagrees with the automated IG or if promyelocytes are noted, a manual differential will be performed. Shonda Gran Abs 0.04 0.00 - 0.04 x10(3)/mc L [facility] Blood 06/20/2023 3:32 AM EDT 06/20/2023 3:47 AM EDT Narrative Resulting Agency Comment Spec In Lab Terrence Keating MD HEMATOLOGY ORDERABLE S [facility] [place] [address] * (ABNORMAL) Hemogram (06/20/2023 3:32 AM EDT) WBC 10.1(H) 4.0 - 9.5 x10(3)/[facility] RBC 4.57 4.00 - 5.21 x10(6)/[facility] Hemoglobin 14.2 11.7 - 15.5 g/dL [facility] Hematocrit 41.5 35.7 - 45.8 % [facility] MCV 90.8 82.6 - 94.4 fL [facility] MCH 31.1 27.1 - 32.0 pg [facility] MCHC 34.2 31.7 - 35.0 g/dL [facility] Platelets 253 145 - 357 x10(3)/[facility] RDWSD 43.7 37.0 - 46.0 [facility] RDWCV 13.2 11.5 - 14.1 % [facility] MPV 10.8 7.6 - 12.9 fL [facility] nRBC % Auto 0.0 % [facility] nRBC Abs Auto 0.000 0.000 - 0.000 x10(3)/mcL [facility] Blood 06/20/2023 3:32 AM EDT 06/20/2023 3:47 AM EDT Narrative Resulting Agency Comment Spec In Lab Terrence Keating MD HEMATOLOGY ORDERABLE S [facility] [place] [address] * (ABNORMAL) Basic Metabolic Panel (non-fasting) (06/20/2023 3:32 AM EDT) Glucose Lvl 99 65 - 199 mg/dL [facility] Comment:Diabetes: >=200 mg/d L plus symptoms BUN 26(H) 8 - 18 mg/dL [facility] Creatinine 1.12 0.70 - 1.20 mg/dL [facility] Anion Gap 13 5 - 15 mmol/L [facility] MD CHEMISTRY ORDERABL ES Performing Organization Address [facility] Co de Phone Number [facility] [place] [address] * Phosphorus (06/20/2023 3:32 AM EDT) Phosphorus 4.3 2.5 - 4.5 mg/dL [facility] Blood 06/20/2023 3:32 AM EDT 06/20/2023 3:47 AM EDT Narrative Resulting Agency Comment Spec In Lab Eufemia Copeland MD CHEMISTRY ORDERABL ES Performing Organization Address [facility] Co de Phone Number [facility] [place] [address] * Magnesium (06/20/2023 3:32 AM EDT) Magnesium 1.00 0.69 - 1.07 mmol/L [facility] Blood 06/20/2023 3:32 AM EDT 06/20/2023 3:47 AM EDT Narrative Resulting Agency Comment Spec In Lab Eufemia Copeland MD CHEMISTRY ORDERABL ES Performing Organization Address [facility] Co de Phone Number [facility] [place] [address] * Phosphorus (06/19/2023 5:26 PM EDT) Phosphorus 4.0 2.5 - 4.5 mg/dL [facility] Blood 06/19/2023 5:26 PM EDT 06/19/2023 5:32 PM EDT Narrative Resulting Agency Comment Spec In Lab Eufemia Copeland MD CHEMISTRY ORDERABL ES Performing Organization Address City/[facility]/ZIP Co de Phone Number [facility] [place] [address] * Magnesium (06/19/2023 5:26 PM EDT) Magnesium 0.98 0.69 - 1.07 mmol/L [facility] Blood 06/19/2023 5:26 PM EDT 06/19/2023 5:32 PM EDT Narrative Resulting Agency Comment Spec In Lab Eufemia Copeland MD CHEMISTRY ORDERABL ES Performing Organization Address [facility] Co de Phone Number [facility] [place] [address] * (ABNORMAL) Basic Metabolic Panel (non-fasting) (06/19/2023 5:26 PM EDT) Pathologist [facility] Glucose Lvl 105 65 - 199 mg/dL [facility] Comment:Diabetes: >=200 mg/d L plus symptoms BUN 21(H) 8 - 18 mg/dL [facility] Creatinine 1.06 0.70 - 1.20 mg/dL [facility] Estimated GFR 62 >=60 mL/min/1. 73 m?? [facility] [...] MD CHEMISTRY ORDERABL ES Performing Organization Address [facility] Co de Phone Number [facility] [place] [address] * EKG 12 Lead (06/19/2023 4:24 AM EDT) Ventricular rate 66 BPM MUSE SYSTEM Atrial Rate 66 BPM MUSE SYSTEM P-R Interval 188 ms MUSE SYSTEM QRS Duration 92 ms MUSE SYSTEM Q-T Interval 484 ms MUSE SYSTEM QTC Calculated (Bezet) 507 ms MUSE SYSTEM Calculated P [place] 32 degrees MUSE SYSTEM Calculated R [place] 22 degrees MUSE SYSTEM Calculated T [place] 47 degrees MUSE SYSTEM INTERPRETATION Normal sinus rhythm Nonspecific ST abnormality Prolonged QT Abnormal ECG When compared with ECG of 15-JUN-2023 10:50, No significant change was found Confirmed by MD AKIRA, CINDY ([id number]) on 06/19/2023 2:42:42 PM MUSE SYSTEM 06/19/2023 4:24 AM EDT 06/19/2023 2:42 PM EDT Terrence Keating MD ECG ORDERABLES Performing Organization Address [facility]/ZIP Co de Phone Number MUSE SYSTEM * (ABNORMAL) Basic Metabolic Panel (non-fasting) (06/19/2023 3:22 AM EDT) Glucose Lvl 101 65 - 199 mg/dL [facility] Comment:Diabetes: >=200 mg/d L plus symptoms BUN 24(H) 8 - 18 mg/dL [facility] Creatinine 1.04 0.70 - 1.20 mg/dL [facility] [...] mmol/L [facility] CO2 Not Perf 22 - 31 [facility] Comment:Add-on request. Samp le too old to perform test. Anion Gap Unable to Calculate 5 - 15 mmol/L [facility] Calcium 9.4 8.5 - 10.5 mg/dL [facility] Estimated GFR 64 >=60 mL/min/1 .73 m?? [facility] Comment: [...] ORDERABL ES [facility] [place] [address] * Differential, Automated (06/19/2023 3:22 AM EDT) Neutrophils % 54.0 % [facility] Neutr Abs (ANC) 5.08 1.70 - 6.10 x10(3)/[facility] Lymphocytes % 30.7 % [facility] Lymphocytes Abs 2.9 0.9 - 3.2 x10(3)/[facility] Monocytes % 10.0 % [facility] Monocyte Abs 0.9 0.3 - 0.9 x10(3)/[facility] Eosinophils % 4.5 % [facility] Eosinophils Abs 0.4 0.0 - 0.4 x10(3)/[facility] Basophils % 0.6 % [facility] [...] 0.04 x10(3)/[facility] Blood 06/19/2023 3:22 AM EDT 06/19/2023 3:47 AM EDT Narrative Resulting Agency Comment Spec In Lab Terrence Keating MD HEMATOLOGY ORDERABLE S [facility] [place] [address] * Hemogram (06/19/2023 3:22 AM EDT) WBC 9.4 4.0 - 9.5 x10(3)/[facility] RBC 4.48 4.00 - 5.21 x10(6)/[facility] Hemoglobin 13.9 11.7 - 15.5 g/dL [facility] Hematocrit 41.7 35.7 - 45.8 % [facility] MCV 93.1 82.6 - 94.4 [facility] MCH 31.0 27.1 - 32.0 pg [facility] MCHC 33.3 31.7 - 35.0 g/dL [facility] Platelets 244 145 - 357 x10(3)/[facility] RDWSD 44.2 37.0 - 46.0 [facility] RDWCV 12.9 11.5 - 14.1 % [facility] MPV 10.9 7.6 - 12.9 [facility] nRBC % Auto 0.0 % [facility] nRBC Abs Auto 0.000 0.000 - 0.000 x10(3)/[facility] Blood 06/19/2023 3:22 AM EDT 06/19/2023 3:47 AM EDT Narrative Resulting Agency Comment Spec In Lab Terrence Keating MD HEMATOLOGY ORDERABLE S Performing Organization Address City/[facility]/ZIP Co de Phone Number [facility] [place] [address] * Phosphorus (06/19/2023 3:22 AM EDT) Phosphorus 4.1 2.5 - 4.5 mg/dL [facility] Blood 06/19/2023 3:22 AM EDT 06/19/2023 3:47 AM EDT Narrative Resulting Agency Comment Spec In Lab Eufemia Copeland MD CHEMISTRY ORDERABL ES Performing Organization Address City/[facility]/ZIP Co de Phone Number [facility] [place] [address] * Magnesium (06/19/2023 3:22 AM EDT) Magnesium 1.00 0.69 - 1.07 mmol/L [facility] Blood 06/19/2023 3:22 AM EDT 06/19/2023 3:47 AM EDT Narrative Resulting Agency Comment Spec In Lab Eufemia Copeland MD CHEMISTRY ORDERABL ES [facility] [place] [address] * (ABNORMAL) Basic Metabolic Panel (non-fasting) (06/18/2023 5:17 PM EDT) Glucose Lvl 115 65 - 199 mg/dL [facility] Comment:Diabetes: >=200 mg/d L plus symptoms BUN 22(H) 8 - 18 mg/dL [facility] Creatinine 1.12 0.70 - 1.20 mg/dL [facility] Sodium 137 135 - 145 mmol/L [facility] Potassium 4.2 3.5 - 5.0 mmol/L [facility] ORDERABL ES [facility] [place] [address] * (ABNORMAL) Basic Metabolic Panel (non-fasting) (06/18/2023 4:19 AM EDT) Glucose Lvl 96 65 - 199 mg/dL [facility] Comment:Diabetes: >=200 mg/d L plus symptoms BUN 22(H) 8 - 18 mg/dL [facility] Creatinine 0.93 0.70 - 1.20 mg/dL [facility] Sodium 138 135 - 145 mmol/L [facility] Potassium 4.2 3.5 - 5.0 mmol/L [facility] Comment: Please note: ??Patients with WBC >100,000 may have falsely elevated Potassium levels. ??For accurate Potassium quantification in these patients send serum separator tube (gold top) for subsequent determinations. ??Contact the Clinical Chemistry Laboratory if there are any questions. Chloride 102 98 - 107 mmol/L [facility] CO2 Not Perf 22 - 31 [facility] Comment:Add-on request. Samp le too old to perform test. Anion Gap Unable to Calculate 5 - 15 mmol/L [facility] Calcium 9.5 8.5 - 10.5 mg/dL [facility] Estimated GFR 73 >=60 mL/min/1 .73 m?? [facility] Comment: [...] ORDERABL ES [facility] [place] [address] * Differential, Automated (06/18/2023 4:19 AM EDT) Neutrophils % 54.1 % [facility] Neutr Abs (ANC) 4.52 1.70 - 6.10 x10(3)/[facility] Lymphocytes % 31.0 % [facility] Lymphocytes Abs 2.6 0.9 - 3.2 x10(3)/[facility] Monocytes % 9.2 % [facility] Monocyte Abs 0.8 0.3 - 0.9 x10(3)/[facility] Eosinophils % 4.9 % [facility] Eosinophils Abs 0.4 0.0 - 0.4 x10(3)/[facility] Basophils % 0.6 % WHITE [...] 0.04 x10(3)/[facility] Blood 06/18/2023 4:19 AM EDT 06/18/2023 4:40 AM EDT Narrative Resulting Agency Comment Spec In Lab Terrence Keating MD HEMATOLOGY ORDERABLE S [facility] [place] [address] * Hemogram (06/18/2023 4:19 AM EDT) WBC 8.4 4.0 - 9.5 x10(3)/[facility] RBC 4.70 4.00 - 5.21 x10(6)/[facility] Hemoglobin 14.5 11.7 - 15.5 g/dL [facility] Hematocrit 42.8 35.7 - 45.8 % [facility] MCV 91.1 82.6 - 94.4 fL [facility] MCH 30.9 27.1 - 32.0 pg [facility] MCHC 33.9 31.7 - 35.0 g/dL [facility] Platelets 258 145 - 357 x10(3)/[facility] RDWSD 43.6 37.0 - 46.0 [facility] RDWCV 13.0 11.5 - 14.1 % [facility] MPV 10.7 7.6 - 12.9 [facility] nRBC % Auto 0.0 % [facility] nRBC Abs Auto 0.000 0.000 - 0.000 x10(3)/[facility] Blood 06/18/2023 4:19 AM EDT 06/18/2023 4:40 AM EDT Narrative Resulting Agency Comment Spec In Lab Terrence Keating MD HEMATOLOGY ORDERABLE S [facility] [place] [address] * Phosphorus (06/18/2023 4:19 AM EDT) Phosphorus 3.7 2.5 - 4.5 mg/dL [facility] Blood 06/18/2023 4:19 AM EDT 06/18/2023 4:40 AM EDT Narrative Resulting Agency Comment Spec In Lab Eufemia Copeland MD CHEMISTRY ORDERABL ES Performing Organization Address [facility]/ZIP Co de Phone Number [facility] [place] [address] * Magnesium (06/18/2023 4:19 AM EDT) Magnesium 1.02 0.69 - 1.07 mmol/L [facility] Blood 06/18/2023 4:19 AM EDT 06/18/2023 4:40 AM EDT Narrative Resulting Agency Comment Spec In Lab Eufemia Copeland MD CHEMISTRY ORDERABL ES Performing Organization Address [facility]/ZIP Co de Phone Number [facility] [place] [address] * Phosphorus (06/17/2023 2:26 PM EDT) Phosphorus 2.8 2.5 - 4.5 mg/dL [facility] Blood 06/17/2023 2:26 PM EDT 06/17/2023 2:36 PM EDT Narrative Resulting Agency Comment Spec In Lab Eufemia Copeland MD CHEMISTRY ORDERABL ES Performing Organization Address City/[facility]/ZIP Co de Phone Number [facility] [place] [address] * Magnesium (06/17/2023 2:26 PM EDT) Magnesium 1.01 0.69 - 1.07 mmol/L [facility] Blood 06/17/2023 2:26 PM EDT 06/17/2023 2:36 PM EDT Narrative Resulting Agency Comment Spec In Lab Eufemia Copeland MD CHEMISTRY ORDERABL ES [facility] [place] [address] * (ABNORMAL) Basic Metabolic Panel (non-fasting) (06/17/2023 2:26 PM EDT) Glucose Lvl 103 65 - 199 mg/dL [facility] Comment:Diabetes: >=200 mg/d L plus symptoms BUN 21(H) 8 - 18 mg/dL [facility] Creatinine 1.07 0.70 - 1.20 mg/dL [facility] Sodium 135 135 - 145 mmol/L [facility] [...] questions. Chloride 97(L) 98 - 107 mmol/L [facility] CO2 24 22 - 31 mmol/L [facility] Anion Gap 14 5 - 15 mmol/L [facility] Calcium 9.6 8.5 - 10.5 mg/dL [facility] Estimated GFR 62 >=60 mL/min/1. 73 m?? [facility] [...] ORDERABL ES [facility] [place] [address] * XR Abdomen Flat & Upright (06/17/2023 [...] who have questions please contact the health adult daycare coordinator that requested your imaging first. ? [...] patients who have questions please contactthe health adult daycare coordinator that requested your imaging first. Electronically signed by: Wilton Cabrera MD, [facility]([phone]), at 06/17/2023 5:30 PM Eufemia Copeland MD [...] [facility] Estimated GFR 65 >=60 mL/min/1. [...] In Lab Terrence Keating MD CHEMISTRY ORDERABLES [facility] [place] [id number] * Differential, Automated (06/17/2023 1:11 AM EDT) Neutrophils % 54.5 % [facility] Neutr Abs (ANC) 5.20 1.70 - 6.10 x10(3)/[facility] Lymphocytes % 31.4 % [facility] Lymphocytes Abs 3.0 0.9 - 3.2 x10(3)/[facility] LABORATORY Monocytes % 9.8 % [facility] LABORATORY Monocyte Abs 0.9 0.3 - 0.9 x10(3)/[facility] LABORATORY Eosinophils % 3.4 % [facility] LABORATORY Eosinophils Abs 0.3 0.0 - 0.4 x10(3)/[facility] LABORATORY Basophils % 0.5 % WHITE [...] 0.04 x10(3)/[facility] LABORATORY Blood 06/17/2023 1:11 AM EDT 06/17/2023 1:16 AM EDT Narrative Resulting Agency Comment Spec In Lab Terrence Keating MD HEMATOLOGY ORDERABLE S [facility] [place] [address] * Hemogram (06/17/2023 1:11 AM EDT) WBC 9.5 4.0 - 9.5 x10(3)/[facility] LABORATORY RBC 4.60 4.00 - 5.21 x10(6)/[facility] LABORATORY Hemoglobin 14.2 11.7 - 15.5 g/dL [facility] LABORATORY Hematocrit 43.0 35.7 - 45.8 % [facility] MCV 93.5 82.6 - 94.4 fL [facility] MCH 30.9 27.1 - 32.0 pg [facility] MCHC 33.0 31.7 - 35.0 g/dL [facility] LABORATORY Platelets 256 145 - 357 x10(3)/[facility] LABORATORY RDWSD 45.0 37.0 - 46.0 [facility] LABORATORY RDWCV 13.2 11.5 - 14.1 % [facility] LABORATORY MPV 10.9 7.6 - 12.9 [facility] LABORATORY nRBC % Auto 0.0 % [facility] LABORATORY nRBC Abs Auto 0.000 0.000 - 0.000 x10(3)/mcL [facility] LABORATORY Blood 06/17/2023 1:11 AM EDT 06/17/2023 1:16 AM EDT Narrative Resulting Agency Comment Spec In Lab Terrence Keating MD HEMATOLOGY ORDERABLE S Performing Organization Address [facility]/ZIP Co de Phone Number [facility] [place] [address] * Magnesium (06/17/2023 1:11 AM EDT) Magnesium 0.96 0.69 - 1.07 mmol/L [facility]ORY Blood 06/17/2023 1:11 AM EDT 06/17/2023 1:16 AM EDT Narrative Resulting Agency Comment Spec In Lab Eufemia Copeland MD CHEMISTRY ORDERABL ES Performing Organization Address [facility] Co de Phone Number [facility] [place] [address] * (ABNORMAL) Basic Metabolic Panel (non-fasting) (06/17/2023 1:11 AM EDT) Glucose Lvl 102 65 - 199 mg/dL [facility] Comment:Diabetes: >=200 mg/d L plus symptoms BUN 24(H) 8 - 18 mg/dL [facility] Creatinine 1.08 0.70 - 1.20 mg/dL [facility] Anion Gap 13 5 - 15 mmol/L [facility] Calcium 9.2 8.5 - 10.5 mg/dL [facility] Estimated GFR 61 >=60 mL/min/1. 73 m?? [facility] In Lab Terrence Keating MD CHEMISTRY ORDERABLES [facility] [place] [address] * (ABNORMAL) Basic Metabolic Panel (non-fasting) (06/16/2023 8:28 PM EDT) Glucose Lvl 111 65 - 199 mg/dL [facility] Comment:Diabetes: >=200 mg/d L plus symptoms BUN 23(H) 8 - 18 mg/dL [facility] Creatinine 1.21(H) 0.70 - 1.20 mg/dL [facility] Sodium 137 135 - 145 mmol/L [facility] Potassium 4.2 3.5 - 5.0 mmol/L [facility] ORDERABL ES [facility] [place] [address] * (ABNORMAL) Basic Metabolic Panel (non-fasting) (06/16/2023 2:29 PM EDT) Glucose Lvl 175 65 - 199 mg/dL [facility] Comment:Diabetes: >=200 mg/d L plus symptoms BUN 25(H) 8 - 18 mg/dL [facility] Creatinine 1.27(H) 0.70 - 1.20 mg/dL [facility] Sodium 135 135 - 145 mmol/L [facility] Potassium 3.9 3.5 - 5.0 mmol/L [facility] Comment: result rechecked-EL Please note: [...] [facility] Anion Gap 13 5 - 15 mmol/L [facility] Calcium 9.3 8.5 - 10.5 mg/dL [facility] Estimated GFR 50(L) >=60 mL/min/1. 73 m?? [facility] ORDERABL ES [facility] [place] [address] * (ABNORMAL) Basic Metabolic Panel (non-fasting) (06/16/2023 9:01 AM EDT) Glucose Lvl 148 65 - 199 mg/dL [facility] Comment:Diabetes: >=200 mg/d L plus symptoms BUN 27(H) 8 - 18 mg/dL [facility] Creatinine 1.27(H) 0.70 - 1.20 mg/dL [facility] Sodium 136 135 - 145 mmol/L [facility] Potassium 2.9(Criti edy) 3.5 - 5.0 mmol/L [facility] LABORATORY Comment: called by tmp /read back by (Malia Mcintyre)/ 06/16/23 @467 Please note: ??Patients with WBC >100,000 may have falsely elevated Potassium levels. ??For accurate Potassium quantification in these patients send serum separator tube (gold top) for subsequent determinations. ??Contact the Clinical Chemistry Laboratory if there are any questions. Chloride 91(L) 98 - 107 mmol/L [facility] CO2 32(H) 22 - 31 mmol/L [facility] Anion Gap 13 5 - 15 mmol/L [facility] Calcium 9.7 8.5 - 10.5 mg/dL [facility] Estimated GFR 50(L) >=60 mL/min/1. 73 m?? [facility] ORDERABL ES [facility] [place] [address] * (ABNORMAL) Magnesium (06/16/2023 3:30 AM EDT) Magnesium 1.09(H) 0.69 - 1.07 mmol/L [facility] LABOR[facility] Blood Venous Draw / Unknown 06/16/2023 3:30 AM EDT 06/16/2023 3:38 AM EDT Narrative Resulting Agency Comment Spec In Lab Eufemia Copeland MD CHEMISTRY ORDERABL ES Performing Organization Address City/[facility]/[place] [address] * (ABNORMAL) Differential, Automated (06/16/2023 3:30 AM EDT) Neutrophils % 50.4 % [facility] LABORATORY Neutr Abs (ANC) 4.15 1.70 - 6.10 x10(3)/ L [facility] LABORATORY Lymphocytes % 33.7 % [facility] LABORATORY Lymphocytes Abs 2.8 0.9 - 3.2 x10(3)/[facility] LABORATORY Monocytes % 11.8 % [facility] LABORATORY Monocyte Abs 1.0(H) 0.3 - 0.9 x10(3)/[facility] LABORATORY Eosinophils % 3.3 % [facility] LABORATORY Eosinophils Abs 0.3 0.0 - 0.4 x10(3)/[facility] LABORATORY Basophils % 0.6 % [facility] LABORATORY Basophils Abs 0.0 0.0 - 0.1 x10(3)/[facility] LABORATORY Immature Gran % 0.20 % [facility]ATORY Comment: Immature granulocytes(IG's)percentage and absolute count will include metamyelocytes, myelocytes, and promyelocytes. Blood smears from CBCs yielding IG's will be scanned manually for concordance. If this scan disagrees with the automated IG or if promyelocytes are noted, a manual differential will be performed. Shonda Gran Abs 0.02 0.00 - 0.04 x10(3)/[facility] LABORATORY Blood 06/16/2023 3:30 AM EDT 06/16/2023 3:37 AM EDT Narrative Resulting Agency Comment Spec In Lab Terrence Keating MD HEMATOLOGY ORDERABLE S [facility] [place] [address] * Hemogram (06/16/2023 3:30 AM EDT) [facility] WBC 8.2 4.0 - 9.5 x10(3)/[facility] LABORATORY RBC 4.69 4.00 - 5.21 x10(6)/[facility] LABORATORY Hemoglobin 14.5 11.7 - 15.5 g/dL [facility] LABORATORY Hematocrit 42.7 35.7 - 45.8 % [facility] MCV 91.0 82.6 - 94.4 fL [facility] MCH 30.9 27.1 - 32.0 pg [facility] MCHC 34.0 31.7 - 35.0 g/dL [facility] LABOR[facility] Platelets 260 145 - 357 x10(3)/[facility] LABORATORY RDWSD 43.5 37.0 - 46.0 [facility] LABORATORY RDWCV 13.0 11.5 - 14.1 % [facility] LABORATORY MPV 11.1 7.6 - 12.9 [facility] LABORATORY nRBC % Auto 0.0 % [facility] LABORATORY nRBC Abs Auto 0.000 0.000 - 0.000 x10(3)/[facility] LABORATORY Blood 06/16/2023 3:30 AM EDT 06/16/2023 3:37 AM EDT Narrative Resulting Agency Comment Spec In Lab Terrence Keating MD HEMATOLOGY ORDERABLE S [facility] [place] [address] * (ABNORMAL) Basic Metabolic Panel (non-fasting) (06/16/2023 3:30 AM EDT) [facility] Glucose Lvl 110 65 - 199 mg/dL [facility] Comment:Diabetes: >=200 mg/d L plus symptoms BUN 28(H) 8 - 18 mg/dL [facility] Creatinine 1.20 0.70 - 1.20 mg/dL [facility] Sodium 135 135 - 145 mmol/L [facility] Potassium 2.7(Criti edy) 3.5 - 5.0 mmol/L [facility] LABORATORY Comment: called by KS /read back by Jolly Friedman / 06/16/23 0136 Please note: ??Patients with WBC >100,000 may have falsely elevated Potassium levels. ??For accurate Potassium quantification in these patients send serum separator tube (gold top) for subsequent determinations. ??Contact the Clinical Chemistry Laboratory if there are any questions. Chloride 90(L) 98 - 107 mmol/L [facility] CO2 33(H) 22 - 31 mmol/L [facility] Anion Gap 12 5 - 15 mmol/L [facility] Calcium 9.2 8.5 - 10.5 mg/dL [facility] ORDERABL ES [facility] [place] [address] * Heparin (unfractionated) Level (06/16/2023 3:30 AM EDT) [facility] Heparin UFH Level 0.64 IU/mL [facility] Comment: [...] Lab Terrence Keating MD HEMATOLOGY ORDERABLE S [facility] [place] [address] * Lipid Panel (Reflex Direct LDL) (06/16/2023 3:30 AM EDT) [facility] Chol, Total 190 mg/dL [facility] Comment: Desirable: ? <200 mg/dL Borderline High: 200-239 mg/dL Higher: ?>uz=246 mg/dL Triglycerides 126 mg/dL [facility] Comment: Normal: ?<150 mg/dL Borderline High: 150-199 mg/dL High: ?200-499 mg/dL Very High: ? >fh=984 mg/dL HDL 50 mg/dL [facility] Comment: Females: High Risk: <50 mg/dL Males: High Risk: <40 mg/dL LDL Cholesterol 115 mg/dL [facility] Comment: Desirable: ? <100 mg/dL Above Desirable: 100-129 mg/dL Borderline High: 130-159 mg/dL High: ?160-189 mg/dL Very High: ? >so=950 mg/dL Lipid Interpretation See Note [facility] [...] individuals with atherosclerotic cardiovascular disease (ASCVD)or LDL >vf=335 mg/dL, use a high-intensity statin (40-80 mg [...] In Lab Terrence Keating MD CHEMISTRY ORDERABLES [facility] [place] [address] * (ABNORMAL) Basic Metabolic Panel (non-fasting) (06/15/2023 9:33 PM EDT) Glucose Lvl 120 65 - 199 mg/dL [facility] Comment:Diabetes: >=200 mg/d L plus symptoms BUN 29(H) 8 - 18 mg/dL [facility] Creatinine 1.38(H) 0.70 - 1.20 mg/dL [facility] Sodium 135 135 - 145 mmol/L [facility] Potassium 3.1(L) 3.5 - 5.0 mmol/L [facility] Comment: Please note: ??Patients with WBC >100,000 may have falsely elevated Potassium levels. ??For accurate Potassium quantification in these patients send serum separator tube (gold top) for subsequent determinations. ??Contact the Clinical Chemistry Laboratory if there are any questions. Chloride 92(L) 98 - 107 mmol/L [facility] CO2 31 22 - 31 mmol/L [facility] [...] MD CHEMISTRY ORDERABL ES Performing Organization Address [facility] Co de Phone Number [facility] [place] [address] * Heparin (unfractionated) Level (06/15/2023 9:33 PM EDT) Heparin UFH Level 0.63 IU/mL [facility] Comment: [...] MD HEMATOLOGY ORDERABLE S Performing Organization Address [facility]/ZIP Co de Phone Number [facility] [place] [address] * (ABNORMAL) Magnesium (06/15/2023 5:47 PM EDT) Magnesium 1.10(H) 0.69 - 1.07 mmol/L [facility] Blood Venous Draw / Unknown 06/15/2023 5:47 PM EDT 06/15/2023 6:10 PM EDT Narrative Resulting Agency Comment Spec In Lab Terrence Keating MD CHEMISTRY ORDERABLES [facility] [place] [address] * (ABNORMAL) Basic Metabolic Panel (non-fasting) (06/15/2023 5:47 PM EDT) Glucose Lvl 147 65 - 199 mg/dL [facility] Comment:Diabetes: >=200 mg/d L plus symptoms BUN 29(H) 8 - 18 mg/dL [facility] Creatinine 1.20 0.70 - 1.20 mg/dL [facility] Sodium 134(L) 135 - 145 mmol/L [facility] Potassium 2.9(Criti edy) 3.5 - 5.0 mmol/L [facility] Comment: Called by: dm, Read back by: qamar ren, Date/Time:06/15/23 19:11. Please note: ??Patients with WBC >100,000 may have falsely elevated Potassium levels. ??For accurate Potassium quantification in these patients send serum separator tube (gold top) for subsequent determinations. ??Contact the Clinical Chemistry Laboratory if there are any questions. Chloride 89(L) 98 - 107 mmol/L [facility] CO2 29 22 - 31 mmol/L [facility] [...] ORDERABL ES [facility] [place] [address] * Rapid Drug Screen w/o Confirmation, Urine (06/15/2023 4:46 PM EDT) U Barbiturates Screen None Detected None Detected [facility] Comment: The barbiturate screen detects [...] U Benzodiazepines Screen None Detected None Detected [facility] Comment: The benzodiazepines screen detects [...] U Cocaine Screen None Detected None Detected [facility] Comment: The cocaine metabolites screen detects benzoylecgonine (Cocaine Metabolite) at concentrations >150 ng/mL. A ? Presumptive Positive? result indicates that the screening result was positive but has not yet been confirmed by a highly-specific method. As with any screen, occasional false positive results from cross-reacting substances may occur. Not for Medico-Legal Purposes. U Methadone Metabolites Screen None Detected None Detected [facility] Comment: The methadone metabolite screen detects EDDP (major methadone metabolite) at concentrations >100 ng/mL. A ? Presumptive Positive? result indicates that the screening result was positive but has not yet been confirmed by a highly-specific method. As with any screen, occasional false positive results from cross-reacting substances may occur. Not for Medico-Legal Purposes. U Opiate Screen None Detected None Detected [facility] Comment: The opiates screen detects [...] U Cannabinoid Screen None Detected None Detected [facility] Comment: The marijuana metabolites screen detects the THC metabolite (06-eos-3-carboxy-delta 9-THC) at concentrations >20 ng/mL. A ? Presumptive Positive? result indicates that the screening result was positive but has not yet been confirmed by a highly-specific method. As with any screen, occasional false positive results from cross-reacting substances may occur. Not for Medico-Legal Purposes. U Oxycodone Screen None Detected None Detected [facility] Comment: The oxycodone screen detects oxycodone and oxymorphone at concentrations >100 ng/mL. A ? Presumptive Positive? result indicates that the screening result was positive but has not yet been confirmed by a highly-specific method. As with any screen, occasional false positive results from cross-reacting substances may occur. Not for Medico-Legal Purposes. U Buprenorphine Screen None Detected None Detected [facility] Comment: The buprenorphine screen detects [...] characteristics of this test were determined by [facility] in accordance with CLIA requirements. This laboratory is qualified under CLIA to perform high-complexity testing. U Fentanyl Screen None Detected None Detected [facility] Comment: The fentanyl screen detects [...] characteristics of this test were determined by [facility] in accordance with CLIA requirements. This laboratory is qualified under CLIA to perform high-complexity testing. U Tricyclics Screen None Detected None Detected [facility] Comment: The tricyclics screen detects [...] characteristics of this test were determined by [facility] in accordance with CLIA requirements. This laboratory is qualified under CLIA to perform high-complexity testing. U Ethanol Screen None Detected None Detected [facility] Comment:This urine ethanol a ssay detects ethanol at concentrations >/= 100 mg/L. U Amphetamines Screen None Detected None Detected [facility] Comment: The amphetamine screen detects d-amphetamine and d-methamphetamine at concentrations >300 ng/mL. A ? Presumptive Positive? result indicates that the screening result was positive but has not yet been confirmed by a highly-specific method. As with any screen, occasional false positive results from cross-reacting substances may occur. Not for Medico-Legal Purposes. U Creat TEE 39 >=20 mg/dL [facility] U Chromate TEE <2.0 <=49.9 mg/L [facility] U Nitrite TEE <50 <=499 mg/L [facility] U Oxidant TEE 12 <=199 mg/L [facility] U pH TEE 5.4 3.0 - 10.9 [facility] U Adulterants Screen None Detected None Detected [facility] Comment:No adulteration of t his urine sample was detected. Urine 06/15/2023 4:46 PM EDT 06/15/2023 5:30 PM EDT Narrative Resulting Agency Comment Spec In Lab Eufemia Copeland MD CHEMISTRY ORDERABL ES Performing Organization Address [facility] Co de Phone Number [facility] [place] [address] * Rapid Drug Screen, Urine (TEE Request) (06/15/2023 4:46 PM EDT) Pathologist [facility] TEE Conf Requested No [facility] TEE Requested See Comment [facility] Comment:Refer to Rapid Drug Screen w/o Confirmation, Urine for results. Urine 06/15/2023 4:46 PM EDT 06/15/2023 5:30 PM EDT Narrative Resulting Agency Comment Spec In Lab Eufemia Copeland MD URINE ORDERABLES Performing Organization Address [facility] Phone Number [facility] [place] [address] * (ABNORMAL) Basic Metabolic Panel (non-fasting) (06/15/2023 2:29 PM EDT) Pathologist [facility] Glucose Lvl 141 65 - 199 mg/dL [facility] Comment:Diabetes: >=200 mg/d L plus symptoms BUN 31(H) 8 - 18 mg/dL [facility] Creatinine 1.21(H) 0.70 - 1.20 mg/dL [facility] Sodium 132(L) 135 - 145 mmol/L [facility] Potassium 3.0(Criti edy) 3.5 - 5.0 mmol/L [facility] Comment: Called by: dm, Read back by: qamar ren, Date/Time:06/15/23 15:18. Please note: ??Patients with WBC >100,000 may have falsely elevated Potassium levels. ??For accurate Potassium quantification in these patients send serum separator tube (gold top) for subsequent determinations. ??Contact the Clinical Chemistry Laboratory if there are any questions. Chloride 89(L) 98 - 107 mmol/L [facility] CO2 32(H) 22 - 31 mmol/L [facility] ORDERABL ES [facility] [place] [address] * Heparin (unfractionated) Level (06/15/2023 2:29 PM EDT) Heparin UFH Level 0.93 IU/mL [facility] Comment: [...] MD HEMATOLOGY ORDERABLE S Performing Organization Address [facility]/ZIP Co de Phone Number [facility] [place] [address] * EKG 12 Lead (06/15/2023 10:50 AM EDT) Ventricular rate 55 BPM MUSE SYSTEM Atrial Rate 55 BPM MUSE SYSTEM P-R Interval 184 ms MUSE SYSTEM QRS Duration 96 ms MUSE SYSTEM Q-T Interval 590 ms MUSE SYSTEM QTC Calculated (Bezet) 565 ms MUSE SYSTEM Calculated P [place] 54 degrees MUSE SYSTEM Calculated R [place] 54 degrees MUSE SYSTEM Calculated T [place] 13 degrees MUSE SYSTEM INTERPRETATION Sinus bradycardia with sinus arrhythmia Marked ST abnormality, possible inferior subendocardial injury Long QT interval Abnormal ECG When compared with ECG of 15-JUN-2023 02:17, Nonspecific T wave abnormality has replaced inverted T waves in Lateral leads Confirmed by Kai Haider ([id number]) on 06/16/2023 3:52:04 PM MUSE SYSTEM 06/15/2023 10:5 0 AM EDT 06/16/2023 3:52 PM EDT Terrence Keating MD ECG ORDERABLES Performing Organization Address [facility] Co de Phone Number MUSE SYSTEM * (ABNORMAL) Basic Metabolic Panel (non-fasting) (06/15/2023 8:18 AM EDT) Glucose Lvl 113 65 - 199 mg/dL [facility] Comment:Diabetes: >=200 mg/d L plus symptoms BUN 29(H) 8 - 18 mg/dL [facility] Creatinine 1.22(H) 0.70 - 1.20 mg/dL [facility] Sodium 134(L) 135 - 145 mmol/L [facility] Potassium 2.5(Criti edy) 3.5 - 5.0 mmol/L [facility] Comment: Called by: cheryl, Read back by: eamon mckeon, Date/Time:06/15/23 09:34. Please note: ??Patients with WBC >100,000 may have falsely elevated Potassium levels. ??For accurate Potassium quantification in these patients send serum separator tube (gold top) for subsequent determinations. ??Contact the Clinical Chemistry Laboratory if there are any questions. Chloride 89(L) 98 - 107 mmol/L [facility] ORDERABL ES [facility] [place] [address] * Heparin (unfractionated) Level (06/15/2023 8:18 AM EDT) [facility] Heparin UFH Level 0.70 IU/mL [facility] Comment: [...] Lab Terrence Keating MD HEMATOLOGY ORDERABLE S [facility] [place] [id number] * (ABNORMAL) Troponin (06/15/2023 8:18 AM EDT) [facility] Troponin-T HS 33(H) <=14 ng/L [facility] Comment: [...] can be found in the [facility] Laboratory Test Catalog Troponin - [facility] Laboratory Test Catalog Reference: Fourth [place] Definition of Myocardial Infarction. Journal of the [place] [employer] 2018;72:2626-4501 Blood 06/15/2023 8:18 AM EDT 06/15/2023 8:34 AM EDT Narrative Resulting Agency Comment Spec In Lab Terrence Keating MD CHEMISTRY ORDERABLES [facility] [place] [address] * Differential, Automated (06/15/2023 4:28 AM EDT) Neutrophils % 48.0 % [facility] Neutr Abs (ANC) 3.20 1.70 - 6.10 x10(3)/[facility] LABORATORY Lymphocytes % 35.8 % [facility] Lymphocytes Abs 2.4 0.9 - 3.2 x10(3)/[facility] LABORATORY Monocytes % 11.4 % [facility] Monocyte Abs 0.8 0.3 - 0.9 x10(3)/[facility] LABORATORY Eosinophils % 3.7 % [facility] Eosinophils Abs 0.2 0.0 - 0.4 x10(3)/[facility] LAB[facility]ORY Basophils % 1.0 % [facility] [...] 0.04 x10(3)/[facility] Blood 06/15/2023 4:28 AM EDT 06/15/2023 4:37 AM EDT Narrative Resulting Agency Comment Spec In Lab Terrence Keating MD HEMATOLOGY ORDERABLE S [facility] [place] [address] * (ABNORMAL) Hemogram (06/15/2023 4:28 AM EDT) WBC 6.7 4.0 - 9.5 x10(3)/[facility] LABORATORY RBC 5.09 4.00 - 5.21 x10(6)/[facility] Hemoglobin 16.1(H) 11.7 - 15.5 g/dL [facility] Hematocrit 48.2(H) 35.7 - 45.8 % [facility] MCV 94.7(H) 82.6 - 94.4 fL [facility] MCH 31.6 27.1 - 32.0 pg [facility] MCHC 33.4 31.7 - 35.0 g/dL [facility] Platelets 253 145 - 357 x10(3)/[facility] LABORATORY RDWSD 45.5 37.0 - 46.0 [facility] LABORATORY RDWCV 13.0 11.5 - 14.1 % [facility] MPV 10.6 7.6 - 12.9 fL [facility] nRBC % Auto 0.0 % [facility] nRBC Abs Auto 0.000 0.000 - 0.000 x10(3)/[facility] LAB[facility] Blood 06/15/2023 4:28 AM EDT 06/15/2023 4:37 AM EDT Narrative Resulting Agency Comment Spec In Lab Terrence Keating MD HEMATOLOGY ORDERABLE S Performing Organization Address City/[facility]/ZIP Co de Phone Number [facility] [place] [address] * (ABNORMAL) Troponin (06/15/2023 4:28 AM EDT) Troponin-T HS 34(H) <=14 ng/L [facility] Comment: [...] can be found in the [facility] Laboratory Test Catalog Troponin - [facility] Laboratory Test Catalog Reference: Fourth [place] Definition of Myocardial Infarction. Journal of the [place] [employer] 2018;72:9478-4648 Blood 06/15/2023 4:28 AM EDT 06/15/2023 4:37 AM EDT Narrative Resulting Agency Comment Spec In Lab Terrence Keating MD CHEMISTRY ORDERABLES [facility] [place] [address] * (ABNORMAL) Prothrombin Time (06/15/2023 4:28 AM EDT) PT 12.7(H) 9.4 - 12.5 sec [facility] INR 1.1 [facility] Comment: An INR <2.0 indicates [...] MD HEMATOLOGY ORDERABLE S Performing Organization Address [facility] Co de Phone Number [facility] [place] [address] * (ABNORMAL) Hepatic Function Panel (06/15/2023 4:28 AM EDT) Total Protein 7.5 6.1 - 8.0 g/dL [facility] Albumin 4.3 3.2 - 5.2 g/dL [facility] AST 32(H) 0 - 30 unit/L [facility] ALT 26 0 - 30 unit/L [facility] Alk Phos 70 35 - 105 unit/L [facility] Total Bilirubin 0.8 0.2 - 1.3 mg/dL [facility] Bili, Direct 0.1 0.0 - 0.3 mg/dL [facility] Blood 06/15/2023 4:28 AM EDT 06/15/2023 4:37 AM EDT Narrative Resulting Agency Comment Spec In Lab Terrence Keating MD CHEMISTRY ORDERABLES Performing Organization Address [facility] Co de Phone Number [facility] [place] [address] * (ABNORMAL) pro-Brain Natriuretic Peptide (06/15/2023 4:28 AM EDT) ProBNP 1,953(H) <=124 pg/mL [facility] Blood 06/15/2023 4:28 AM EDT 06/15/2023 4:37 AM EDT Narrative Resulting Agency Comment Spec In Lab Terrence Keating MD CHEMISTRY ORDERABLES Performing Organization Address City/[facility]/ZIP Co de Phone Number [facility] [place] [address] * TSH (06/15/2023 4:28 AM EDT) TSH 2.98 0.27 - 4.20 mcIU/mL [facility] Comment: Reference Interval (mcIU/mL): Females: ??First Trimester: 0.23-3.88 ??Second Trimester: 0.22-3.90 ??Third Trimester: 0.44-4.66 Blood 06/15/2023 4:28 AM EDT 06/15/2023 4:37 AM EDT Narrative Resulting Agency Comment Spec In Lab Terrence Keating MD CHEMISTRY ORDERABLES Performing Organization Address City/[facility]/ZIP Co de Phone Number [facility] [place] [address] * Phosphorus (06/15/2023 4:28 AM EDT) Phosphorus 4.4 2.5 - 4.5 mg/dL [facility] Blood 06/15/2023 4:28 AM EDT 06/15/2023 4:37 AM EDT Narrative Resulting Agency Comment Spec In Lab Terrence Keating MD CHEMISTRY ORDERABLES Performing Organization Address City/[facility]/ZIP Co de Phone Number [facility] [place] [address] * (ABNORMAL) Magnesium (06/15/2023 4:28 AM EDT) Magnesium 1.22(H) 0.69 - 1.07 mmol/L [facility] Blood 06/15/2023 4:28 AM EDT 06/15/2023 4:37 AM EDT Narrative Resulting Agency Comment Spec In Lab Terrence Keating MD CHEMISTRY ORDERABLES [facility] [place] [address] * Calcium (06/15/2023 4:28 AM EDT) Calcium 9.7 8.5 - 10.5 mg/dL [facility] Blood 06/15/2023 4:28 AM EDT 06/15/2023 4:37 AM EDT Narrative Resulting Agency Comment Spec In Lab Terrence Keating MD CHEMISTRY ORDERABLES Performing Organization Address City/[facility]/ZIP Co de Phone Number [facility] [place] [address] * (ABNORMAL) Basic Metabolic Panel (non-fasting) (06/15/2023 4:28 AM EDT) Glucose Lvl 112 65 - 199 mg/dL [facility] Comment:Diabetes: >=200 mg/d L plus symptoms BUN 30(H) 8 - 18 mg/dL [facility] Creatinine 1.24(H) 0.70 - 1.20 mg/dL [facility] Sodium 134(L) 135 - 145 mmol/L [facility] Potassium 2.7(Criti edy) 3.5 - 5.0 mmol/L [facility] Comment: Called by: , Read back by: Olive Hernandez, Date/Time:06/15/23 05:16. Please note: ??Patients with WBC >100,000 may have falsely elevated Potassium levels. ??For accurate Potassium quantification in these patients send serum separator tube (gold top) for subsequent determinations. ??Contact the Clinical Chemistry Laboratory if there are any questions. Chloride 90(L) 98 - 107 mmol/L [facility] CO2 28 22 - 31 mmol/L [facility] Anion Gap 16(H) 5 - 15 mmol/L [facility] Calcium 9.7 8.5 - 10.5 mg/dL [facility] Estimated GFR 52(L) >=60 mL/min/1. 73 m?? [facility] [...] In Lab Terrence Keating MD CHEMISTRY ORDERABLES [facility] [place] [address] * EKG 12 Lead (06/15/2023 2:17 AM EDT) Ventricular rate 57 BPM MUSE SYSTEM Atrial Rate 57 BPM MUSE SYSTEM P-R Interval 200 ms MUSE SYSTEM QRS Duration 94 ms MUSE SYSTEM Q-T Interval 606 ms MUSE SYSTEM QTC Calculated (Bezet) 591 ms MUSE SYSTEM Calculated P [place] 66 degrees MUSE SYSTEM Calculated R [place] 74 degrees MUSE SYSTEM Calculated T [place] -33 degrees MUSE SYSTEM INTERPRETATION Sinus bradycardia Possible Lateral infarct (cited on or before 17-APR-2023) Marked ST abnormality, possible inferior subendocardial injury Prolonged QTc Abnormal ECG When compared with ECG of 20-APR-2023 10:23, Nonspecific T wave changes QT has lengthened Confirmed by fellow MD Hansa, Sindhu ([id number]) on 06/15/2023 4:36:19 PM Confirmed by MD Angelo Danette ([id number]) on 06/15/2023 4:51:21 PM MUSE SYSTEM 06/15/2023 [...] 60 mg, Intravenous, ONCE, 1 dose, On Arua 06/24/23 at 2030 Given 06/24/2023 8:25 PM [...] Wed06/15/23 at 0200, Until Discontinued, Routine 1332 ([facility] [...] [facility]) Unhold - Provider: Admin Adt)2135 (Given - [...] Routine documented in this encounter Care Teams Manager Primary Care Relationship Specialty Start Date End Date Polo Pearce PA [address] [place] [address] PCP - General Internal Medicine 06/09/21 documented as of this encounter
--- OUTSIDE RECORDS SUMMARY | 2023-10-05 17:03 | XMS_ITS | Encounter Summary ---
[place] [address] Care Team Providers Care Merry Go Round Attendant Name Role Phone Polo Pearce Primary Care Provider [phone] Reason for Visit * Auth/Cert (Routine) Specialty Diagnoses / Procedures Referred By Jayant t Referred To Contact Diagnoses NSTEMI (non-ST elevated myocardial infarction) NSTEMI Procedures ER Lloyd Pantoja MD [facility] [place] [address] [facility] Referral ID Status Reason Start Date Expiration Date Visits Re quested Visits Authorized [id number] 1 1 Encounter Details Date Type Department Care Team (Late st Contact Info) Description 07/07/2023 2:05 PM EDT Anesthesia [place] [address] Constantine Velez MD [facility] [place] [address] Anesthesia Record Procedure Summary Procedure Name Responsible [...] Recorded In the past 12 months has [employer] gas, oil, or water [employer] threatened to shut off services in your [...] Procedure Summary Date: 07/07/23 Room / Location: [facility] 5 / [facility] Anesthesia Start: 1405 Anesthesia Stop: 1511 Procedures: EGD WITH BIOPSY (WRVU 2.39) (Trunk) COLONOSCOPY FLEXIBLE, WITH BX (WRVU 3.56) (Trunk) Diagnosis: (post prandial pain) Surgeons: Lashonda Villa MD Responsible Provider: Constantine Velez MD Anesthesia Type: general ASA Status: 4 All Anesthesia Providers: Anesthesiologist: Constantine Velez MD LEGAL ADMINISTRATOR: Darío Barlow CRNA Lump Inspector: Lawrence Lopez MD Vitals Value Taken Time BP 96/51 07/07/23 1530 Temp Pulse Resp SpO2 100 % 07/07/23 1537 Pain Level 1 07/07/23 1510 Vitals shown include unfiled device data. Patient Location: PACU/MDP Level of Consciousness: Awake and Alert Pain Management: Satisfactory Analgesia PONV: None Cardiovascular Status: At Baseline and Hemodynamically Stable Respiratory Status: At Baseline and Room Air Postoperative Fluid Status: Intravascular EUvolemia Possible Anesthetic Complications: NONE apparent at time of evaluation Final Primary Anesthesia Type: General (The anesthetic type performed was the same as planned.) Comments: CONSTANTINE VELEZ MD * Anesthesia Preprocedure Evaluation - Consatntine Velez MD - 07/07/2023 10:02 AM EDT [...] EDT Tech Visit [place] [address] [place] 10/08/2023 9:30 AM EDT Office Visit [place] [phone] MD [facility] [place] [address] 10/21/2023 10:30 AM EDT Appointment [place] [address] Mary Reyes [facility] [place] [address] 10/21/2023 11:30 AM EDT Appointment [place] [phone] Mary Reyes [facility] [place] [address] 10/21/2023 12:30 PM EDT Appointment [place] [address] [place] [address] 10/21/2023 1:30 PM EDT Appointment [place] [address] [place] [address] 10/21/2023 2:30 PM EDT Appointment [place] [address] [place] [address] 10/26/2023 4:00 PM EDT Office Visit Cardiology at [address] [phone] Jaspreet Kinsey MD [facility] [place] [address] 10/28/2023 9:00 AM EDT Office [place] [address] 10/29/2023 10:00 AM EDT Clinical [place] [address] 10/29/2023 10:15 AM EDT Procedure [place] [address] 11/01/2023 5:00 PM EDT Office Visit [place] [address] Selene Browning, PhD [facility] [place] [address] 11/22/2023 4:40 PM EDT Office Visit Cardiology at [address] [phone] Porsha Mcdaniels MD [facility] [place] [address] 12/13/2023 10:00 AM EDT Clinical Support [place] [phone] [facility] [place] [address] documented as of this encounter Visit Diagnoses [...] mg documented in this encounter Care Teams Merry Go Round Attendant Relationship Specialty Start Date End Date Polo Pearce PA [address] [place] [address] PCP - General Internal Medicine 06/09/21 documented as of this encounter
--- OUTSIDE RECORDS SUMMARY | 2023-10-05 17:03 | XMS_ITS | Encounter Summary ---
Author Organization [facility] [place] [address] Care Team Providers Care Research Laboratory Specialist Name Role Phone Polo Pearce Primary Care Provider [phone] Reason for Referral * Consultation (Routine) - Closed Specialty Diagnoses / Procedures Referred By Jayant harris Referred To Contact Gastroenterology Diagnoses Chronic abdominal pain chronic abd pain after meals Porsha San MD [facility] [place] [address] [facility] [address] [address] Referral ID Status Reason Start Date Expiration Date V isits Requested Visits Authorized [id number] Closed Consult, Test & Treat 07/08/2023 07/07/2024 1 1 Encounter Details Date Type Department Care Team (Late st Contact Info) Description 07/08/2023 Orders Only [place] [address] Porsha San MD [facility] [place] [address] Chronic abdominal pain Social History [...] AM EDT Tech [place] [phone] [address] [place] 10/08/2023 9:30 AM EDT Office Visit Vascular [place] [phone] MD [facility] [place] [address] 10/21/2023 10:30 AM EDT Appointment Nuclear Medicine at [address] Mary Reyes [place] [address] 10/21/2023 11:30 AM EDT Appointment Nuclear Medicine at [place] [phone] [place] [address] 10/21/2023 12:30 PM EDT Appointment [place] [address] Mary Reyes [place] [address] 10/21/2023 1:30 PM EDT Appointment [place] [address] Mary Reyes [place] [address] 10/21/2023 2:30 PM EDT Appointment [place] [address] Mary Reyes [place] [address] 10/26/2023 4:00 PM EDT Office Visit Cardiology at [address] [phone] Jaspreet Kinsey MD [facility] [place] [address] 10/28/2023 9:00 AM EDT Office Visit [place] [address] 10/29/2023 10:00 AM EDT Clinical Support [place] [address] 10/29/2023 10:15 AM EDT Procedure visit [place] [address] 11/01/2023 5:00 PM EDT Office Visit G[place]enter[place] [phone] Selene Browning, PhD [facility] [place] [address] 11/22/2023 4:40 PM EDT Office Visit Cardiology at [address] [phone] Porsha Mcdaniels MD [facility] [place] [address] 12/13/2023 10:00 AM EDT Clinical Support G[place] [address] [facility] [place] [address] Scheduled Referrals Name Type Priority Associated Diagnoses Order Schedule Referral to Gastroenterology Outpatient Referral Routine Chronic abdominal pain Ordered: 07/08/2023 documented as of this encounter Visit Diagnoses Diagnosis Chronic abdominal pain Abdominal pain, unspecified site documented in this encounter Care Teams Research Laboratory Specialist Relationship Specialty Start Date End Date Polo Pearce PA [address] [place] [address] PCP - General Internal Medicine 06/09/21 documented as of this encounter
--- NOTE | 2023-10-05 17:04 | ED.GENADUL_ITS ---
Discharge Plan Disposition Patient Disposition: Home Condition: Good Discharge Details Clinical Impression: Left ankle sprain Primary Care Provider: Polo Pearce ED Provider: Dona Agarwal Home Meds and New Rx's Prescriptions: Continued ropinirole 1 mg tablet 1 mg PO BID Rx Instructions: @ 1600 and 2100 Aimovig Autoinjector 140 mg/mL auto-injector 140 mg subcut QMONTH Qty: 1 11RF Ubrelvy 50 mg tablet 50 mg PO ONCE Qty: 14 3RF Rx Instructions: as a single dose; may repeat once in >=2 hours after first dose if needed potassium chloride 20 mEq tablet,ER particles/crystals 40 meq PO BID atorvastatin 80 mg tablet 40 mg PO QPM fluticasone propionate [Flonase Allergy Relief] 9.9 ML spray,suspension 2 spray NS DAILY duloxetine [Cymbalta] 60 mg capsule,delayed release(DR/EC) 60 mg PO DAILY Qty: 30 2RF albuterol sulfate 90 mcg/actuation HFA aerosol inhaler 2 puff inhalation Q4H PRN loratadine [Allergy Relief (loratadine)] 10 mg tablet 10 mg PO DAILY PRN nitroglycerin 0.4 mg tablet, sublingual 0.4 mg sublingual Q5M PRN Rx Instructions: do not exceed 3 doses per episode clobetasol 0.05 % ointment 1 applic topical DIRECTED omeprazole 20 mg capsule,delayed release(DR/EC) 20 mg PO DAILY gabapentin 600 mg tablet 600 mg PO QHS Qty: 90 3RF topiramate [Topamax] 100 mg tablet 100 mg PO QHS Qty: 90 3RF apixaban 5 mg tablet 5 mg PO BID Jardiance 10 mg tablet 10 mg PO DAILY ranolazine 1,000 mg tablet extended release 12 hr 1,000 mg PO BID spironolactone 25 mg tablet 25 mg PO DAILY montelukast 10 mg tablet 10 mg PO DAILY PRN melatonin 10 mg capsule 10 mg PO HS PRN metoprolol tartrate 25 mg tablet 12.5 mg PO DAILY torsemide 20 mg Tablet 20 mg PO DAILY Qty: 90 0RF metolazone 2.5 mg tablet 2.5 mg PO PRN PRNQty: 0 0RF Discharge Instructions Instructions: Ankle sprain Additional Instructions: Please follow up with your primary care provider in the next 2-3 weeks for reassessment if your ankle continues to bother you. I encourage you to use an ankle brace for comfort. Elevate your ankle above heart level, apply ice for 15-20 min every hour or so for swelling/discomfort. Referrals: Polo Pearce [Primary Care Provider] - [facility] General Date/Time Provider Initiated Documentation: 10/05/23 16:54 . HPI Narrative: Indira is a 53-year-old female presents to the emergency department today for evaluation of left ankle pain. She reports that she twisted her ankle yesterday while walking outside in her yard, says she heard a pop. She has broken this ankle previously with similar mechanism of injury, also has broken her right ankle similarly. No history of osteoporosis. She has not taken any medication for it, says she is unable to tolerate Tylenol or other pain medications. Denies knee pain or other injury. No distal numbness/tingling. She is able to ambulate on it, however says it is uncomfortable. Physical exam remarkable for moderate swelling to the lateral malleolus with diffuse tenderness. Mild swelling noted to the medial malleolus. Decreased range of motion to ankle due to discomfort and swelling. + CMS to toes. Distal pulses intact. Full painless range of motion of knee. No other injuries noted. DDx includes was not limited to: Fracture, sprain, other soft tissue injury I independently interpreted the following tests: Left ankle x-ray, no acute osseous abnormality noted. While in the emergency department Indira was offered ice and pain medication, however she declined. An ankle brace was provided for comfort. History and presentation consistent with ankle sprain. Reviewed discharge instructions with patient, including importance of follow-up with PCP if symptoms persist. She does have a follow-up appointment scheduled in the next 1 to 2 weeks. Encouraged PT as needed for ankle strengthening, as she says this happens often and she has weak ankles. She is agreeable with plan of care Related Data Home Medications ?Medication ?Instructions ?Recorded ?Confirmed fluticasone propionate 50 2 spray NS DAILY 12/23/16 10/05/23 mcg/actuation nasal spray,suspension (Flonase Allergy Relief) ropinirole 1 mg tablet 1 mg PO BID 06/12/20 10/05/23 duloxetine 60 mg capsule,delayed 60 mg PO DAILY #30 mg 08/19/20 10/05/23 release (Cymbalta) albuterol sulfate 90 mcg/actuation 2 puff inhalation Q4H PRN 05/30/21 10/05/23 aerosol inhaler loratadine 10 mg tablet (Allergy 10 mg PO DAILY PRN 05/30/21 10/05/23 Relief (loratadine)) nitroglycerin 0.4 mg sublingual 0.4 mg sublingual Q5M PRN 09/25/21 10/05/23 tablet clobetasol 0.05 % topical ointment 1 applic topical DIRECTED 08/28/22 10/05/23 omeprazole 20 mg capsule,delayed 20 mg PO DAILY 08/28/22 10/05/23 release gabapentin 600 mg tablet 600 mg PO QHS #90 tabs 01/04/23 10/05/23 topiramate 100 mg tablet (Topamax) 100 mg PO QHS #90 tab-caps 01/18/23 10/05/23 melatonin 10 mg capsule 10 mg PO HS PRN 04/16/23 10/05/23 apixaban 5 mg tablet 5 mg PO BID 08/13/23 10/05/23 empagliflozin 10 mg tablet 10 mg PO DAILY 08/13/23 10/05/23 (Jardiance) ranolazine 1,000 mg 1,000 mg PO BID 08/13/23 10/05/23 tablet,extended release,12 hr spironolactone 25 mg tablet 25 mg PO DAILY 08/13/23 10/05/23 atorvastatin 80 mg tablet 40 mg PO QPM 09/16/23 10/05/23 montelukast 10 mg tablet 10 mg PO DAILY PRN 09/16/23 10/05/23 potassium chloride 20 mEq 40 meq PO BID 09/16/23 10/05/23 tablet,extended release(part/cryst) metolazone 2.5 mg tablet 2.5 mg PO PRN PRN #0 tabs 09/25/23 10/05/23 torsemide 20 mg tablet 20 mg PO DAILY #90 tabs 09/25/23 10/05/23 erenumab-aooe 140 mg/mL 140 mg subcut QMONTH #1 mL 09/28/23 10/05/23 subcutaneous auto-injector (Aimovig Autoinjector) ubrogepant 50 mg tablet (Ubrelvy) 50 mg PO ONCE #14 tabs 09/28/23 10/05/23 metoprolol tartrate 25 mg tablet 12.5 mg PO DAILY 10/05/23 10/05/23 Previous Rx's ?Medication ?Instructions ?Recorded duloxetine 60 mg capsule,delayed 60 mg PO DAILY #30 mg 08/19/20 release (Cymbalta) gabapentin 600 mg tablet 600 mg PO QHS #90 tabs 01/04/23 topiramate 100 mg tablet (Topamax) 100 mg PO QHS #90 tab-caps 01/18/23 metolazone 2.5 mg tablet 2.5 mg PO PRN PRN #0 tabs 09/25/23 torsemide 20 mg tablet 20 mg PO DAILY #90 tabs 09/25/23 erenumab-aooe 140 mg/mL 140 mg subcut QMONTH #1 mL 09/28/23 subcutaneous auto-injector (Aimovig Autoinjector) ubrogepant 50 mg tablet (Ubrelvy) 50 mg PO ONCE #14 tabs 09/28/23 Allergies Allergy/AdvReac Type Severity Reaction Status Date / Time acetaminophen (From Tylenol) AdvReac Intermediate jittery Unverified 10/05/23 16:55 like too much caffeine clobetasol AdvReac Intermediate Skin Rash Verified 10/05/23 16:55 codeine AdvReac Mild Not able Verified 10/05/23 16:55 to sleep ibuprofen AdvReac migraines Unverified 10/05/23 16:55 environmental Allergy Mild sneezing/triggers Uncoded 10/05/23 16:55 her asthma General Stated Complaint: Orthopedic MIKAELA: 4 Review of Systems Narrative: See HPI Exam Const General: cooperative, healthy appearing, comfortable, no acute distress and well developed Nutritional Appearance: average body habitus Extrem Right lower extremity: normal to inspection Left lower extremity: knee Details: normal to inspection and ankle Details: swelling Details: laterally (moderate) and medially (mild); no abrasions, no lacerations, no ecchymosis, no foreign bodies and no penetrating wound Course Vital Signs Vital signs: Vital Signs Temperature 36.7 C 10/05/23 16:53 Pulse 57 L 10/05/23 16:53 Respiratory Rate 18 10/05/23 16:53 Blood Pressure 115/68 10/05/23 16:53 Pulse Oximetry 97 10/05/23 16:53 Temperature 36.7 C 10/05/23 16:53 Temperature Source Temporal Artery Scan 10/05/23 16:53 Pulse 57 L 10/05/23 16:53 Respiratory Rate 18 10/05/23 16:53 Respiratory Effort Normal, Non-Labored 10/05/23 16:59 Blood Pressure 115/68 10/05/23 16:53 Blood Pressure Position Sitting 10/05/23 16:53 Pulse Oximetry 97 10/05/23 16:53 Oxygen Delivery Method OxyMask 10/05/23 16:53 Medical Decision Making Imaging Data Radiologic Study: Radiologist's impression: Exam(s) XR ANKLE LT COMPLETE EXAM: XR ANKLE LT COMPLETE CLINICAL HISTORY: L ankle pain s/p twisting injury TECHNIQUE: 2D digital imaging was performed of the left ankle. Three images were obtained. AP, lateral and oblique views were obtained. COMPARISON: CR LEFT ANKLE COMPLETE from 10/31/2007 FINDINGS: BONES: No acute fracture is present. No bony destructive lesion is seen. There is a small plantar calcaneal spur. JOINTS:The ankle mortise is normally aligned. There is an ankle joint effusion. SOFT TISSUE: Normal. IMPRESSION: 1. No acute fracture or dislocation. 2. Ankle joint effusion. 3. Soft tissue swelling around the ankle particularly laterally. Quality:SDOH Health Related Social Needs: No Data to Display PFSH All Active Problems (Updated 10/05/23 @ 17:44 by Dona Osullivan) Left ankle sprain (Acute) Acute otitis media of right ear with perforated tympanic membrane (Acute) Non-ST elevation [place] (NSTEMI) (Acute) Chronic kidney disease, stage III (moderate) (Acute) Hypermagnesemia (Acute) Acute hypokalemia (Acute) Ground glass opacity present on imaging of lung (Acute) Elevated troponin (Acute) CATIE (acute kidney injury) (Acute) Restrictive lung disease secondary to obesity (Acute) Allergic asthma (Acute) intermittent, controlled Dyspnea (Acute) Diarrhea (Acute) Congestive heart failure (Chronic) Sick euthyroidism (Acute) Carpal tunnel syndrome (Acute) GERD (gastroesophageal reflux disease) (Chronic) Bilateral renal artery stenosis (Acute) Encounter for weight loss counseling (Acute) Pulmonary emboli (Chronic) Arthritis of carpometacarpal (CMC) joint of left thumb (Acute) Avulsion fracture of right talus (Acute 12/30/21) Bilateral carpal tunnel syndrome (Acute) Paresthesia of hand, bilateral (Acute) Abnormal chest CT (Acute) Pulmonary hypertension (Acute) Atypical chest pain (Acute) PSVT (paroxysmal supraventricular tachycardia) (Acute) Acute non-ST elevation myocardial infarction (NSTEMI) (Acute) Elevated troponin I level (Acute) Right upper quadrant abdominal pain (Acute) Chronic heart failure with preserved ejection fraction (Chronic) Restless legs syndrome (Acute) Rhinitis, nonallergic, chronic (Acute) Tendinitis (Acute) Chest pain (Acute) Migraine headache without aura (Acute) Lichen sclerosus (Acute) MARYLOU (obstructive sleep apnea) (Chronic) Migraine with aura and without status migrainosus, not intractable (Acute 02/24/16) Medical History Myocardial infarction 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 Mild intermittent asthma Atherosclerosis of renal artery Heart failure Supraventricular tachycardia Atrial fibrillation Superior mesenteric artery stenosis (~03/10/22) see CTA abdomen and pelivs: 80% narrowing of SMA origin Renal artery stenosis (~03/10/22) right renal artery stenosis per CTA abomen/pelvis Hx of supraventricular tachycardia Infiltrate of lower lobe of left lung present on imaging study Acute non-ST elevation myocardial infarction (NSTEMI) COVID-19 Left lateral epicondylitis Arthritis of carpometacarpal (CMC) joint of left thumb Left wrist pain CHI (closed head injury) Acute bronchitis Non-ST elevation [place] (NSTEMI) Insomnia Asthma Migraine Overweight Endometriosis Depression Surgical History History of radiofrequency ablation (RFA) procedure for cardiac arrhythmia Hx of tubal ligation History of partial hysterectomy Family History Daughter Migraines Mother Hypertension Father Heart disease Social History Smoking/Tobacco Use Status: Never Smoking risk assessment performed?: Yes Alcohol Intake: never Drug use: Never Substance use type: does not use Housing: house Current gender identity: female Do you feel safe at home: Yes Do you feel safe in your relationship?: Yes Female Reproductive History Menstrual Menopause type: surgical History History 2 Para 2 Hx # Term Pregnancies Multiple births Hx # Pregnancies Ectopic pregnancies AB induced Hx Number of Living Children AB spontaneous
--- OUTSIDE RECORDS SUMMARY | 2023-10-05 17:04 | XMS_ITS | Encounter Summary ---
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 Name Role Phone Polo Pearce Primary Care Provider [phone] Reason for Visit * Auth/Cert (Routine) Specialty Diagnoses / Procedures Referred By Jayant harris Referred To Contact Diagnoses NSTEMI (non-ST elevated myocardial infarction) NSTEMI Procedures ER Terrence Pantoja MD [facility] [place] [address] [facility] Referral ID Status Reason Start Date Expiration Date Visits Re quested Visits Authorized [id number] 1 1 Encounter Details Date Type Department Care Team (Late st Contact Info) Description 07/07/2023 1:00 PM EDT - 07/07/2023 2:00 PM EDT [place] [address] Lashonda Villa MD [facility] [place] [address] EGD WITH BIOPSY (WRVU 2.39) Social History Tobacco Use Types Packs/Day Years Used Date Smoking Tobacco: Never Smokeless Tobacco: Never Alcohol Use Standard Drinks/Week Comments Never 0 (1 standard drink = 0.6 oz pur e alcohol) [facility] Utilities Answer Date Recorded In the past 12 months has th e electric, gas, oil, or water [employer] threatened to shut off services in your [...] in a mcc (including now)? No 06/15/2023 DH IPV Inpatient [...] Loida Roque Patient Age: 53 y.o. Language: Citizen Of [place] Race: White Ethnicity: Not nor Admit date: 06/14/2023 Discharge date and time: 07/09/2023 3:31 PM Attending Physician: Terrence Keating MD Discharge Physician: Terrence Keating MD Follow-up Recommendations for Providers: Inpatient Provider Contact Information: For questions regarding this document or issues relating to this hospitalization on the Medical Service, please contact your inpatient physician through the [facility] Mid Level Provider . Issues afterhours and on weekends will [...] questions please contact the health home care administrator that requested your imaging first. Electronically signed by: Wilton Cabrera MD, [facility] ([phone]), at 06/17/2023 5:[address] Abdomen & [...] questions please contact the health home care administrator that requested your imaging first. Chest One [...] questions please contact the health home care administrator that requested your imaging first. Abdomen Limited (Exam End: 06/28/2023 12:22 PM) Result Value WORKSTATION ID [id number] Narrative Abdominal (Signed Final 06/28/2023 02:08 pm) PATIENT INFO: ID #: [id number] : [birth year] (53 yrs)(F) Name: LOIDA Visit Date: 06/28/2023 12:20 pm ROHAN PERFORMED BY: Attending: Sigrid Owens MD Resident: Rafaela Huddleston MD Performed By: Deena Cabrera RDMS Referred By: AILYN IRVIN Location: [place] SERVICE(S) PROVIDED: UABDLIM - Abdominal Limited Survey Single [id number] Organ or Quadrant - [id number] INDICATIONS: RUQ pain, R/o Gall bladder colic, [...] questions, please contact the health home care administrator that requested your imaging first. Sigrid Owens, [employer] Worker Electronically Signed Final Report 06/28/2023 02:08 pm [...] anesthetic: 10 cc 1% lidocaine Heparin: Yes 39937 Units Protamine: No mg Antibiotics: Ancef Fluoro [...] We exchanged the sheath for a 7 Gabonese tour sales representative steerable sheath over a stiff wire. A Glidewire and Kumpe catheter were used to selectively cannulate the superior mesenteric artery. Direct angiography of the superior mesenteric artery was performed, confirming the results of the nonselective aortography performed. The lesion was predilated with a 4 mm x 40 mm [place] balloon, and then a 6 mm X [...] 07/03/2023 3:18 PM) Result Value WORKSTATION ID [id number] Narrative EXAMINATION: XR CHEST ONE VIEW CLINICAL [...] questions please contact the health home care administrator that requested your imaging first. Echocardiogram from [...] pain. The patient was recently admitted at [facility] from 04/16/23 to 04/19/2023 as a transfer from [facility] due to exertional chest pressure [...] etiology, patient was accepted for transfer to [facility]. Brief Summary: Loida Roque [...] with positive cardiac markers. Patient transferred to [facility] for further work-up and [...] Administered Date(s) Administered Moderna Covid-19 Monovalent 12Yr+ (Personnel Placement Specialist 100mcg) 03/06/2020, 04/03/2020 Discharge Medications: Your Medications [...] weight gain + increasing shortness of breath. [id number] minutes prior to a dose of torsemide). [...] appointments: During 8am-5pm Wednesday through Wednesday call [phone] to speak with a nurse in the cardiology clinic All other times call [phone] and ask to speak to the personnel technician production control analyst. Return to work: One week Driving: No driving for 48 hours after catheterization. Follow up Appointments: PCP JOCY Franco [phone] 11:30am on July 19. Cardiology office will call you regarding your appointment with Dr. Kinsey. General Instructions None Future Appointments and Orders Future Appointments and Orders Future Appointments Provider Department Dept Phone 07/26/2023 3:20 PM Jaspreet Kinsey MD Cardiology at [place] Arrive at: [facility] [address] [phone] 07/29/2023 8:00 AM Porsha Mcdaniels MD Cardiology at [facility] Arrive at: [facility] [address] [phone] 08/03/2023 8:30 AM Eladio Boyer Vascular Lab at [facility] Arrive at: [facility] [address]V [phone] 08/03/2023 9:30 AM Judith Butler APRN Vascular Surgery at [facility] Arrive at: [facility]V [phone] 09/02/2023 2:40 PM Jaspreet Kinsey MD Cardiology at [place] Arrive at: [facility] [address] [phone] Discharge References/Attachments None Greater than 30 minutes was spent on this discharge including documentation, [id number] time withthe patient, patient education, city recorder, coordination with pharmacy and other patient [...] appointments: During 8am-5pm Wednesday through Wednesday call [phone] to speak with a nurse in the cardiology clinic All other times call [phone] and ask to speak to the personnel technician production control analyst. Return to work: One week Driving: No driving for 48 hours after catheterization. Follow up Appointments: PCP JOCY Franco [phone] 11:30am on July 19. Cardiology office will [...] as needed. fluticasone propionate (FLONASE) 50 mcg/actuation [place], Suspension 1 spray by Each Nare route [...] 4pm, per the team. Please refer to: [facility] Care [facility] [address] [facility] [address] PHONE: [phone] FAX: [phone] *For RN RICARDO: 07/09/23 Nani Mendoza MSN-Ed, RN ACM Cardiac Research Nurse and Neuro/Neurocrit/ENT Jacquard Twine Polisher Operator. * Mary Castaneda RCP - 07/09/2023 [...] 1:00 PM EDT [facility] 2 - [facility] DAILY PROGRESS NOTE Page [phone] to reach a provider 28/09 Admit Date: [...] with positive cardiac markers. Patient transferred to [facility] for further work-up and [...] prn. Diet: Daily Healthy Menu Choices/Cardiac diet ([facility]-Diet) DVT Prophylaxis: DOAC heparin gtt. 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 Patient transferred to [facility] for further work-up and [...] Score: 24 PT: OT: PCP JOCY Franco [phone] Terrence Keating MD 07/07/2023 * Terrence Keating MD - 07/06/2023 11:00 AM EDT [facility] 2 - [facility] DAILY PROGRESS NOTE Page [phone] to reach a provider 28/09 Admit Date: [...] with positive cardiac markers. Patient transferred to [facility] for further work-up and [...] hospital Diet: Daily Healthy Menu Choices/Cardiac diet ([facility]-Diet) NPO diet (Give Meds) DVT Prophylaxis: DOAC Code status: Attempt Cardiopulmonary Resuscitation - Inpatient Disposition: Discharge Location: AM-[facility] Basic Mobility Raw Score: 24 PT: OT: PCP JOCY Franco [phone] Terrence Keating MD 07/06/2023 * Ana Paula [...] 11:00 AM EDT [facility] H[facility]PITAL[facility] 2 - [facility] DAILY PROGRESS NOTE Page [phone] to reach a provider 28/09 Admit Date: [...] with positive cardiac markers. Patient transferred to [facility] for further work-up and [...] hospital Diet: Daily Healthy Menu Choices/Cardiac diet ([facility]-Diet) DVT Prophylaxis: DOAC Code status: Attempt Cardiopulmonary Resuscitation - Inpatient Disposition: Discharge Location: AM-PAC Basic Mobility Raw Score: 24 PT: OT: PCP JOCY Franco [phone] Terrence Keating MD 07/05/2023 * Lino Calles MD - 07/04/2023 9:09 AM EDT [facility] 2 - [facility] DAILY PROGRESS NOTE Page [phone] to reach a provider 28/09 Admit Date: [...] with positive cardiac markers. Patient transferred to [facility] for further work-up and [...] migraine Diet: Daily Healthy Menu Choices/Cardiac diet ([facility]-Diet) DVT Prophylaxis: DOAC Code status: Attempt Cardiopulmonary Resuscitation - Inpatient Disposition: Discharge Location: AM-PAC Basic Mobility Raw Score: 24 PT: OT: PCP JOCY Franco [phone] Lino Calles MD 07/04/2023 * Ana Paula [...] 8:59 AM EDT [facility]PITALIST 2 - [facility] DAILY PROGRESS NOTE Page [phone] to reach a provider 28/09 Admit Date: [...] with positive cardiac markers. Patient transferred to [facility] for further work-up and [...] PRN Diet: Daily Healthy Menu Choices/Cardiac diet ([facility]-Diet) DVT Prophylaxis: DOAC Code status: Attempt Cardiopulmonary Resuscitation - Inpatient Disposition: Discharge Location: AM-PAC Basic Mobility Raw Score: 24 PT: OT: PCP JOCY Franco [phone] Lino Calles MD 07/03/2023 * Van Muse [...] 9:55 AM EDT [facility] 2 - [facility] DAILY PROGRESS NOTE Page [phone] to reach a provider 28/09 Admit Date: [...] with positive cardiac markers. Patient transferred to [facility] for further work-up and [...] PRN Diet: Daily Healthy Menu Choices/Cardiac diet ([facility]-Diet) DVT Prophylaxis: DOAC Code status: Attempt Cardiopulmonary Resuscitation - Inpatient Disposition: Discharge Location: AM-PAC Basic Mobility Raw Score: 24 PT: OT: PCP JOCY Franco [phone] Lino Calles MD 07/02/2023 * Jaspreet Griffith [facility] - 07/02/2023 6:35 AM EDT [...] 7:39 AM EDT [facility] H[facility]PITALIST 2 - [facility] DAILY PROGRESS NOTE Page [phone] to reach a provider 28/09 Admit Date: [...] with positive cardiac markers. Patient transferred to [facility] for further work-up and [...] PRN Diet: Daily Healthy Menu Choices/Cardiac diet ([facility]-Diet) NPO diet (Give Meds) DVT Prophylaxis: DOAC Code status: Attempt Cardiopulmonary Resuscitation - Inpatient Disposition: Discharge Location: AM-PAC Basic Mobility Raw Score: 24 PT: OT: PCP JOCY Franco [phone] Terrence Keating MD 07/01/2023 * Terrence Keating MD - 06/30/2023 8:00 AM EDT [facility] 2 - [facility] DAILY PROGRESS NOTE Page [phone] to reach a provider 28/09 Admit Date: [...] and SVT ablation on 04/01/[address] Toavr, paroxysmal A-fib (diagnosed on 10/20/2022), HFpEF, pulmonary emboli on Eliquis, and restrictive lung disease secondary to obesity who presented to OSH with chest pain. Patient has recently undergone extensive workup for ACS that has been unrevealing. 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 The patient current presentation is different with positive cardiac markers. Patient transferred to [facility] for further work-up and [...] Score: 24 PT: OT: PCP JOCY Franco [phone] Terrence Keating MD 06/30/2023 * Terrence Keating MD - 06/29/2023 4:29 PM EDT [facility]PITALIST 2 - [facility] DAILY PROGRESS NOTE Page [phone] to reach a provider 28/09 Admit Date: [...] with positive cardiac markers. Patient transferred to [facility] for further work-up and [...] Score: 24 PT: OT: PCP JOCY Franco [phone] Terrence Keating MD 06/29/2023 * Jo Ann Sharpe - 06/29/2023 2:54 PM EDT Nutrition Services Note - Low Nutrition Acuity Loida Roque is a 53 y.o. female Reason for intervention: follow up Nutrition Plan: Continue current diet. Encourage good PO intake. Spironolactone noted. Abdominal pain after eating noted. Encouragement and support provided. Pt screened for follow-up visit and chief writer met with Pt at bedside. Pt [...] consulted in the interim. Jo Ann Sharpe Carding Machine Operator * Mary Castaneda RCP - 06/29/2023 [...] 1:53 PM EDT [facility] 2 - [facility] DAILY PROGRESS NOTE Page [phone] to reach a provider 28/09 Admit Date: [...] with positive cardiac markers. Patient transferred to [facility] for further work-up and [...] Score: 24 PT: OT: PCP JOCY Franco [phone] * Ailyn Irvin MD - 06/27/2023 9:40 AM EDT [facility]PITALIST 2 - [facility] DAILY PROGRESS NOTE Page [phone] to reach a provider 28/09 Admit Date: [...] with positive cardiac markers. Patient transferred to [facility] for further work-up and [...] Score: 24 PT: OT: PCP JOCY Franco [phone] * Ailyn Irvin MD - 06/26/2023 12:42 PM EDT CV H[facility]PITALIST 2 - [facility] DAILY PROGRESS NOTE Page [phone] to reach a provider 28/09 Admit Date: [...] with positive cardiac markers. Patient transferred to [facility] for further work-up and [...] Score: 24 PT: OT: PCP JOCY Franco [phone] * Mitali Manuel RCP - 06/26/2023 5:43 [...] 1:39 PM EDT [facility]PITALIST 2 - [facility] DAILY PROGRESS NOTE Page [phone] to reach a provider 28/09 Admit Date: [...] with positive cardiac markers. Patient transferred to [facility] for further work-up and [...] Score: 24 PT: OT: PCP JOCY Franco [phone] * Edith Chandler RCP - 06/24/2023 10:40 [...] 4:38 PM EDT [facility]PITALIST 2 - [facility] DAILY PROGRESS NOTE Page [phone] to reach a provider 28/09 Admit Date: [...] with positive cardiac markers. Patient transferred to [facility] for further work-up and [...] Score: 24 PT: OT: PCP JOCY Franco [phone] * Aaron Rosado RCP - 06/24/2023 1:55 [...] 1:03 PM EDT [facility]PITALIST 2 - [facility] DAILY PROGRESS NOTE Page [phone] to reach a provider 28/09 Admit Date: [...] with positive cardiac markers. Patient transferred to [facility] for further work-up and [...] Score: 24 PT: OT: PCP JOCY Franco [phone] * Ciera Valdovinos RD - 06/22/2023 2:38 PM EDT Nutrition Services Note - Low Nutrition Acuity Loida Roque is a 53 y.o. female Reason for intervention: hospital day 9 Nutrition Plan: Cardiac Diet Record % PO intake Monitor weight - diuresis noted Patient screened for hospital length of stay nutrition visit, chief writer met with Loida at bedside. Loida reports excellent appetite, eating 100% of meals. She notes that she has not skipped any meals inpatient and has no current nutrition related questions. She notes UBW 217-218 lbs and says that current weight is higher than normal for her. Diuresis noted. Active Orders Diet Daily Healthy Menu Choices/Cardiac diet ([facility]-Diet) Frequency: Effective Now Number [...] 1:35 PM EDT [facility] 2 - [facility] DAILY PROGRESS NOTE Page [phone] to reach a provider 28/09 Admit Date: [...] questions please contact the health home care administrator that requested your imaging first. Chest One View (Exam End: 06/22/2023 11:42 AM) Impression No acute pulmonary findings Thank you for letting us participate in the care of this patient. If you are a health care provider and have any questions regarding this report, please contact the number below. For patients who have questions please contact the health home care administrator that requested your imaging first. Assessment: Loida [...] with positive cardiac markers. Patient transferred to [facility] for further work-up and [...] above Diet: Daily Healthy Menu Choices/Cardiac diet ([facility]-Diet) DVT Prophlaxis: eliquis Code status: Attempt Cardiopulmonary Resuscitation - Inpatient Disposition: Discharge Planning: AM-PAC Basic Mobility Raw Score: 24 PT: OT: PCP JOCY Franco [phone] * Eufemia Copeland MD - 06/21/2023 11:02 AM EDT [facility] H[facility]PITALIST 2 - [facility] DAILY PROGRESS NOTE Page [phone] to reach a provider 28/09 Admit Date: [...] with positive cardiac markers. Patient transferred to [facility] for further work-up and [...] above Diet: Daily Healthy Menu Choices/Cardiac diet ([facility]-Diet) DVT Prophlaxis: eliquis Code status: Attempt Cardiopulmonary Resuscitation - Inpatient Disposition: Discharge Planning: AM-PAC Basic Mobility Raw Score: 24 PT: OT: PCP JOCY Franco [phone] * Eufemia Copeland MD - 06/20/2023 8:06 AM EDT CV HOSPITALIST 2 - [facility] DAILY PROGRESS NOTE Page [phone] to reach a provider 28/09 Admit Date: [...] with positive cardiac markers. Patient transferred to [facility] for further work-up and [...] above Diet: Daily Healthy Menu Choices/Cardiac diet ([facility]-Diet) DVT Prophlaxis: eliquis Code status: Attempt Cardiopulmonary Resuscitation - Inpatient Disposition: Discharge Planning: AM-PAC Basic Mobility Raw Score: 24 PT: OT: PCP JOCY Franco [phone] * Eufemia Copeland MD - 06/19/2023 10:00 AM EDT [facility] HOSPITALIST 2 - [facility] DAILY PROGRESS NOTE Page [phone] to reach a provider 28/09 Admit Date: [...] with positive cardiac markers. Patient transferred to [facility] for further work-up and [...] above Diet: Daily Healthy Menu Choices/Cardiac diet ([facility]-Diet) DVT Prophlaxis: eliquis Code status: Attempt Cardiopulmonary Resuscitation - Inpatient Disposition: Discharge Planning: AM-PAC Basic Mobility Raw Score: 24 PT: OT: PCP JOCY Franco [phone] * Eufemia Copeland MD - 06/18/2023 9:02 AM EDT [facility] HOSPITALIST 2 - [facility] DAILY PROGRESS NOTE Page [phone] to reach a provider 28/09 Admit Date: [...] with positive cardiac markers. Patient transferred to [facility] for further work-up and [...] above Diet: Daily Healthy Menu Choices/Cardiac diet ([facility]-Diet) DVT Prophlaxis: eliquis Code status: Attempt Cardiopulmonary Resuscitation - Inpatient Disposition: Discharge Planning: AM-PAC Basic Mobility Raw Score: 24 PT: OT: PCP JOCY Franco [phone] * Eufemia Copeland MD - 06/17/2023 12:02 PM EDT [facility] HOSPITALIST 2 - [facility] DAILY PROGRESS NOTE Page [phone] to reach a provider 28/09 Admit Date: [...] with positive cardiac markers. Patient transferred to [facility] for further work-up and [...] above Diet: Daily Healthy Menu Choices/Cardiac diet ([facility]-Diet) DVT Prophlaxis: eliquis Code status: Attempt Cardiopulmonary Resuscitation - Inpatient Disposition: Discharge Planning: AM-PAC Basic Mobility Raw Score: 24 PT: OT: PCP JOCY Franco [phone] * Calista Hernandez, RT - 06/17/2023 4:36 [...] 3:25 PM EDT CV HOSPITALIST 2 - [facility] DAILY PROGRESS NOTE Page [phone] to reach a provider 28/09 Admit Date: [...] and SVT ablation on 04/01/[address] [place], paroxysmal A-fib (diagnosed on 10/20/2022), HFpEF, pulmonary emboli on Eliquis, and restrictive lung disease secondary to obesity who presented to OSH with chest pain. Patient has recently undergone extensive workup for ACS that has been unrevealing. 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 The patient current presentation is different with positive cardiac markers. Patient transferred to [facility] for further work-up and [...] above Diet: Daily Healthy Menu Choices/Cardiac diet ([facility]-Diet) DVT Prophlaxis: eliquis Code status: Attempt Cardiopulmonary Resuscitation - Inpatient Disposition: Discharge Planning: AM-PAC Basic Mobility Raw Score: 24 PT: OT: PCP JOCY Franco [phone] documented in this encounter H&P Notes * [...] pain. The patient was recently admitted at [facility] from 04/16/23 to 04/19/2023 as a transfer from [facility] due to exertional chest pressure [...] etiology, patient was accepted for transfer to [facility]. 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 fluticasone propionate (FLONASE) 50 mcg/actuation [place], Suspension 1 spray by Each Nare route [...] if hypotensive / cardiogenic shock / inferior ND / sildenafil within past 24 hours) - [...] for discharge to home with family support, [facility] for RN and OP Cardi clinic for f/u. Needs for Transition of Care: Plan for discharge is: Home w/ Services Outpatient Agency/Support Group Needs: None Home Health Services: Registered Nurse Agency Referrals & Follow-up Care: Contact information for follow-up Home Health & Hospice, [facility] [address] [place] [address] Transportation: taxi voucher -Ride confirmed entrance #2 [...] none Patient is insured through: Primary Insurance: [employer] [place] Pay[place] [employer] [place] / Plan[place] / Product Type: *No Product type* / Secondary Insurance: N/A Prescription Coverage: Yes This plan was formulated with input from patient, (please identify family/friend involved if applicable) and team. All are in agreement with plan. Nani Mendoza MSN-Ed, RN ACM Cardiac Research Nurse and Neuro/Neurocrit/ENT Jacquard Twine Polisher Operator. * Care Management - Dixie Patterson - 07/09/2023 1:38 PM EDT Transportation for discharge was scheduled and confirmed through [employer]. [employer] will have a motorcycle delivery driver here at entrance #2 @4pm to [...] Visceral Aorta 80 16 Celiac Artery, Proximal Andrews-Biphasic 119 26 Celiac Artery, Mid Andrews-Biphasic 115 21 Celiac Artery, Distal No Vis Sup Mes Artery Proximal Biphasic 427 91 Sup Mes Artery Middle Andrews-Biphasic 100 17 Sup Mes Artery Distal Andrews-Biphasic 64 15 Hepatic Artery No Vis Splenic [...] sign off at this time, please page [phone] with any questions or concerns. Discussed with [...] Visceral Aorta 80 16 Celiac Artery, Proximal Andrews-Biphasic 119 26 Celiac Artery, Mid Andrews-Biphasic 115 21 Celiac Artery, Distal No Vis Sup Mes Artery Proximal Biphasic 427 91 Sup Mes Artery Middle Andrews-Biphasic 100 17 Sup Mes Artery Distal Andrews-Biphasic 64 15 Hepatic Artery No Vis Splenic [...] duplex Discussed with Dr. Kamara. Please page [phone] with any questions or concerns. 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 At [place], patient should be strict NPO. The plan as outlined above was discussed with Dr. Villa. Recommendations were discussed with primary team. Sis Keenan M.D. Fellow in Gastroenterology and Hepatology Pager #[phone] 07/06/2023 Associated attestation - Lashonda Villa MD - 07/06/2023 8:14 PM EDT Attending Addendum: I interviewed and examined the patient with Dr. Kenean on rounds. I confirm the history and keyphysical findings outlined in this note. The assessment and plan were formulated in discussion withme at the time of this encounter, and I agree with them as documented. Lsahonda Villa MD Gastroenterology and hepatology Pager: [phone] * Plan of Care - Olive Hernandez [...] Visceral Aorta 80 16 Celiac Artery, Proximal Andrews-Biphasic 119 26 Celiac Artery, Mid Andrews-Biphasic 115 21 Celiac Artery, Distal No Vis Sup Mes Artery Proximal Biphasic 427 91 Sup Mes Artery Middle Andrews-Biphasic 100 17 Sup Mes Artery Distal Andrews-Biphasic 64 15 Hepatic Artery No Vis Splenic [...] duplex Discussed with Dr. Kamara. Please page [phone] with any questions or concerns. Gauri Vega [...] Visceral Aorta 80 16 Celiac Artery, Proximal Andrews-Biphasic 119 26 Celiac Artery, Mid Andrews-Biphasic 115 21 Celiac Artery, Distal No Vis Sup Mes Artery Proximal Biphasic 427 91 Sup Mes Artery Middle Andrews-Biphasic 100 17 Sup Mes Artery Distal Andrews-Biphasic 64 15 Hepatic Artery No Vis Splenic [...] ASA) Discussed with Dr. Kamara. Please page [phone] with any questions or concerns. Gauri Vega [...] Visceral Aorta 80 16 Celiac Artery, Proximal Andrews-Biphasic 119 26 Celiac Artery, Mid Andrews-Biphasic 115 21 Celiac Artery, Distal No Vis Sup Mes Artery Proximal Biphasic 427 91 Sup Mes Artery Middle Andrews-Biphasic 100 17 Sup Mes Artery Distal Andrews-Biphasic 64 15 Hepatic Artery No Vis Splenic [...] 07/02/[address] Kamara. Please page [phone] with any questions or concerns. Gauri Vega [...] Visceral Aorta 80 16 Celiac Artery, Proximal Andrews-Biphasic 119 26 Celiac Artery, Mid Andrews-Biphasic 115 21 Celiac Artery, Distal No Vis Sup Mes Artery Proximal Biphasic 427 91 Sup Mes Artery Middle Andrews-Biphasic 100 17 Sup Mes Artery Distal Andrews-Biphasic 64 15 Hepatic Artery No Vis Splenic [...] tonight Discussed with Dr. Kamara. Please page [phone] with any questions or concerns. Gauri Vega [...] Appropriate) Goal: Patient-Specific Goal (Individualized) 06/30/20231848 by Araon Caban RN Outcome: Ongoing (Interventions Implemented as [...] Visceral Aorta 80 16 Celiac Artery, Proximal Andrews-Biphasic 119 26 Celiac Artery, Mid Andrews-Biphasic 115 21 Celiac Artery, Distal No Vis Sup Mes Artery Proximal Biphasic 427 91 Sup Mes Artery Middle Andrews-Biphasic 100 17 Sup Mes Artery Distal Andrews-Biphasic 64 15 Hepatic Artery No Vis Splenic [...] Visceral Aorta 80 16 Celiac Artery, Proximal Andrews-Biphasic 119 26 Celiac Artery, Mid Andrews-Biphasic 115 21 Celiac Artery, Distal No Vis Sup Mes Artery Proximal Biphasic 427 91 Sup Mes Artery Middle Andrews-Biphasic 100 17 Sup Mes Artery Distal Andrews-Biphasic 64 15 Hepatic Artery No Vis Splenic [...] Dominguez PA - 06/28/2023 8:52 AM EDT [facility] Department of Cardiology Consult [...] consultation required. SUHA LangstonC Cardiovascular Medicine Pager [phone] 06/28/2023 Associated attestation - Klarissa Henderson MD [...] Tellez MD - 06/24/2023 2:14 PM EDT [facility] Department of Cardiology Consult [...] if further consultation required. 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 fluticasone propionate (FLONASE) 50 mcg/actuation [place], Suspension 1 spray by Each Nare route [...] other (see comments) (Has CPAP provided through [employer]) DME Needed at Discharge: No Patient is insured through: Primary Insurance: [employer] [place] [employer] [place] / Plan[place] / [...] Anticipated Date of Discharge: 06/23/2023 [place] agile business analyst Pgr: [phone] * Plan of Care - [...] other (see comments) (Has CPAP provided through [employer]) DME Needed at Discharge: No Patient is insured through: Primary Insurance: [employer] [place] [employer] [place] / Plan: [facility] [place] / Product Type: *No [...] of Discharge: 06/19/2023 BEA Killian, RN Inpatient Snag Grinder- Cardiology Office of Care Management Pager #: [phone] * Plan of Care - Olive Hernandez [...] COVID test: Lab Results Component Value Date [id number] Not Detected 06/13/2021 Past medical History: Past [...] In the past 12 months has the [employer], gas, oil, or water [employer] threatened to shut off services in your [...] medical) Home Address confirmed as: [address] [facility] [address] Social & Family Supports: All names listed [...] Specific Information: Has a CPAP provided by [employer]/Prescription Coverage: Primary Insurance: [employer] [place] [employer] [place] / Plan: [employer] [place] / Product Type: *No Product type* / Secondary Insurance: N/A ; Prescription Coverage: Yes Preferred Pharmacy: [facility] [address] [address] [facility] [place], [place] - [address] [facility] [address] [facility] [address] [facility] [address] Status: Patient is a : No Primary Care Provider confirmed: JOCY Franco [phone] Patient/Caregiver Goals of Treatment: To figure out what is wrong Potential Needs for Transition of Care: other (see comments) ([facility] help) Agency Referrals: Not Applicable Transportation: no concerns Transportation Anticipated: agency ( can not drive , mother does not drive , Son does not have a car) Concerns to be Addressed: discharge planning Assessment: Patient is admitted to [facility] service for Chest pain Plan: May need [...] Office of Care Management Float / multimedia teacher agile business analyst [email or web address] Pager #[phone] * Consult Note - Jackie Batres MD - 06/15/2023 11:04 AM EDT [facility] Department of Cardiology Initial [...] her case. 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, though unlikely, is possible [...] EDT Tech Visit [place] [phone] [place] Esc[place] 10/08/2023 9:30 AM EDT Office [place] [address] MD [facility] [place] [place] [address] 10/21/2023 10:30 AM EDT Appointment [place] [address] Mary Reyes APRN [place] [place] [address] 10/21/2023 11:30 AM EDT Appointment Nuclear Medicine at [place] [phone] Mary Reyes [facility] [place] [address] 10/21/2023 12:30 PM EDT Appoint[place] [address] [place] [address] 10/21/2023 1:30 PM EDT Appoint[place] [address] Mary Reyes [facility] [place] [address] 10/21/2023 2:30 PM EDT Appointment [place] [address] [place] [address] 10/26/2023 4:00 PM EDT Office Visit Cardiology at [address] [phone] Jaspreet Kinsey MD [facility] [place] [address] 10/28/2023 9:00 AM EDT Office Visit [place] [address] 10/29/2023 10:00 AM EDT Clinical Support [place] [address] 10/29/2023 10:15 AM EDT Procedure visit G[place] [address] 11/01/2023 5:00 PM EDT Office [place] [phone] Selene Browning, PhD [facility] [place] [address] 11/22/2023 4:40 PM EDT Office Visit Cardiology at [address] [phone] Porsha Mcdaniels MD [facility] [place] [address] 12/13/2023 10:00 AM EDT Clinical Support [place] [address] Lucero Romero, ALVA [facility] [place] [address] Scheduled Orders Name Type Priority Associated Diagnoses [...] Routine 07/07/2023 2:25 PM EDT Colonoscopy, Biopsy ([id number]) 07/07/2023 2:10 PM EDT post prandial pain Upper Gi Endoscopy, Biopsy ([id number]) 07/07/2023 2:10 PM EDT post prandial pain [...] Glucose Lvl 111 65 - 199 mg/dL [facility] Comment:Diabetes: >=200 mg/d L plus symptoms BUN 29(H) 8 - 18 mg/dL [facility] Creatinine 1.41(H) 0.70 - 1.20 mg/dL [facility] Sodium 140 135 - 145 mmol/L [facility] Potassium 3.6 3.5 - 5.0 mmol/L [facility] Comment: Please note: ??Patients with WBC >100,000 may have falsely elevated Potassium levels. ??For accurate Potassium quantification in these patients send serum separator tube (gold top) for subsequent determinations. ??Contact the Clinical Chemistry Laboratory if there are any questions. Chloride 99 98 - 107 mmol/L [facility] CO2 29 22 - 31 mmol/L [facility] Anion Gap 12 5 - 15 mmol/L [facility] Calcium 10.0 8.5 - 10.5 mg/dL [facility] Estimated GFR 44(L) >=60 mL/min/1. 73 m?? [facility] In Lab Terrence Keating MD CHEMISTRY ORDERABLES [facility] [place] [address] * Differential, Automated (07/09/2023 3:03 AM EDT) Neutrophils % 51.4 % [facility] Neutr Abs (ANC) 3.43 1.70 - 6.10 x10(3)/mcL [facility] Lymphocytes % 31.4 % [facility] Lymphocytes Abs 2.1 0.9 - 3.2 x10(3)/[facility] Monocytes % 10.1 % [facility] Monocyte Abs 0.7 0.3 - 0.9 x10(3)/[facility] Eosinophils % 6.0 % [facility] Eosinophils Abs 0.4 0.0 - 0.4 x10(3)/[facility] Basophils % 0.8 % [facility] Basophils Abs 0.0 0.0 - 0.1 x10(3)/[facility] Immature Gran % 0.30 % [facility] [...] Lab Terrence Keating MD HEMATOLOGY ORDERABLE S [facility] [place] [address] * (ABNORMAL) Hemogram (07/09/2023 3:03 AM EDT) WBC 6.7 4.0 - 9.5 x10(3)/[facility] RBC 3.87(L) 4.00 - 5.21 x10(6)/[facility] Hemoglobin 12.4 11.7 - 15.5 g/dL [facility] Hematocrit 36.8 35.7 - 45.8 % [facility] MCV 95.1(H) 82.6 - 94.4 fL [facility] MCH 32.0 27.1 - 32.0 pg [facility] MCHC 33.7 31.7 - 35.0 g/dL [facility] Platelets 209 145 - 357 x10(3)/[facility] RDWSD 47.9(H) 37.0 - 46.0 fL [facility] RDWCV 13.7 11.5 - 14.1 % [facility] MPV 10.5 7.6 - 12.9 fL [facility] nRBC % Auto 0.0 % [facility] nRBC Abs Auto 0.000 0.000 - 0.000 x10(3)/[facility] Blood 07/09/2023 3:03 AM EDT 07/09/2023 3:14 AM EDT Narrative Resulting Agency Comment Spec In Lab Terrence Keating MD HEMATOLOGY ORDERABLE S Performing Organization Address City/State/[facility] Co de Phone Number [facility] [place] [address] * Heparin (unfractionated) Level (07/09/2023 3:03 AM EDT) Heparin UFH Level 0.52 IU/mL [facility] [...] Lab Ailyn Irvin MD HEMATOLOGY ORDERABLE S [facility] [place] [address] * (ABNORMAL) Basic Metabolic Panel (non-fasting) (07/09/2023 3:03 AM EDT) Glucose Lvl 100 65 - 199 mg/dL [facility] Comment:Diabetes: >=200 mg/d L plus symptoms BUN 12 8 - 18 mg/dL [facility] Creatinine 1.24(H) 0.70 - 1.20 mg/dL [facility] Sodium 138 135 - 145 mmol/L [facility] Potassium 4.2 3.5 - 5.0 mmol/L [facility] Comment: Please note: ??Patients with WBC >100,000 may have falsely elevated Potassium levels. ??For accurate Potassium quantification in these patients send serum separator tube (gold top) for subsequent determinations. ??Contact the Clinical Chemistry Laboratory if there are any questions. Chloride 104 98 - 107 mmol/L [facility] CO2 22 22 - 31 mmol/L [facility] Anion Gap 12 5 - 15 mmol/L [facility] Calcium 9.3 8.5 - 10.5 mg/dL [facility] Estimated GFR 52(L) >=60 mL/min/1. 73 m?? [facility] [...] MD CHEMISTRY ORDERABL ES Performing Organization Address [facility] Co de Phone Number [facility] [place] [address] * Phosphorus (07/09/2023 3:03 AM EDT) Phosphorus 4.5 2.5 - 4.5 mg/dL [facility] Blood 07/09/2023 3:03 AM EDT 07/09/2023 3:14 AM EDT Narrative Resulting Agency Comment Spec In Lab Eufemia Copeland MD CHEMISTRY ORDERABL ES Performing Organization Address [facility] Co de Phone Number [facility] [place] [address] * Magnesium (07/09/2023 3:03 AM EDT) Magnesium 0.91 0.69 - 1.07 mmol/L [facility] Blood 07/09/2023 3:03 AM EDT 07/09/2023 3:14 AM EDT Narrative Resulting Agency Comment Spec In Lab Eufemia Copeland MD CHEMISTRY ORDERABL ES Performing Organization Address [facility] de Phone Number [facility] [place] [address] * Heparin (unfractionated) Level (07/08/2023 12:02 PM EDT) Heparin UFH Level 0.45 IU/mL [facility] [...] MD HEMATOLOGY ORDERABLE S Performing Organization Address City/[facility]/ZIP Co de Phone Number [facility] [place] [address] * EKG 12 Lead (07/08/2023 9:58 AM EDT) Ventricular rate 66 BPM MUSE SYSTEM Atrial Rate 66 BPM MUSE SYSTEM P-R Interval 178 ms MUSE SYSTEM QRS Duration 92 ms MUSE SYSTEM Q-T Interval 486 ms MUSE SYSTEM QTC Calculated (Bezet) 509 ms MUSE SYSTEM Calculated P [place] 29 degrees MUSE SYSTEM Calculated R [place] 33 degrees MUSE SYSTEM Calculated T [place] 29 degrees MUSE SYSTEM INTERPRETATION Normal sinus rhythm Nonspecific ST and T wave abnormality Prolonged QT Abnormal ECG When compared with ECG of 04-JUL-2023 11:41, Criteria for Septal infarct are no longer Present I personally reviewed the tracing and edited the fellows interpretation Confirmed by fellow MD Keyshawn, Katalina ([id number]) on 07/08/2023 3:18:07 PM Confirmed by MD Beatriz, Klarissa ([id number]) on 07/09/2023 6:15:21 AM MUSE SYSTEM 07/08/2023 9:58 AM EDT 07/09/2023 6:15 AM EDT Lisa Beck MD ECG ORDERABLES Performing Organization Address [facility] Co de Phone Number MUSE SYSTEM * Differential, Automated (07/08/2023 5:52 AM EDT) Neutrophils % 60.6 % [facility] Neutr Abs (ANC) 4.42 1.70 - 6.10 x10(3)/mcL [facility] Lymphocytes % 24.8 % [facility] Lymphocytes Abs 1.8 0.9 - 3.2 x10(3)/[facility] Monocytes % 9.2 % [facility] Monocyte Abs 0.7 0.3 - 0.9 x10(3)/[facility] Eosinophils % 4.5 % [facility] Eosinophils Abs 0.3 0.0 - 0.4 x10(3)/[facility] Basophils % 0.5 % [facility] Basophils Abs [...] Lab Terrence Keating MD HEMATOLOGY ORDERABLE S [facility] [place] [address] * (ABNORMAL) Hemogram (07/08/2023 5:52 AM EDT) WBC 7.3 4.0 - 9.5 x10(3)/[facility] RBC 3.94(L) 4.00 - 5.21 x10(6)/[facility] Hemoglobin 12.3 11.7 - 15.5 g/dL [facility] Hematocrit 36.3 35.7 - 45.8 % [facility] MCV 92.1 82.6 - 94.4 fL [facility] MCH 31.2 27.1 - 32.0 pg [facility] MCHC 33.9 31.7 - 35.0 g/dL [facility] Platelets 207 145 - 357 x10(3)/[facility] RDWSD 44.6 37.0 - 46.0 fL [facility] RDWCV 13.3 11.5 - 14.1 % [facility] MPV 10.5 7.6 - 12.9 [facility] nRBC % Auto 0.0 % [facility] nRBC Abs Auto 0.000 0.000 - 0.000 x10(3)/[facility] Blood 07/08/2023 5:52 AM EDT 07/08/2023 5:58 AM EDT Narrative Resulting Agency Comment Spec In Lab Terrence Keating MD HEMATOLOGY ORDERABLE S [facility] [place] [address] * Heparin (unfractionated) Level (07/08/2023 5:52 AM EDT) Heparin UFH Level 0.37 IU/mL [facility] [...] Lab Ailyn Irvin MD HEMATOLOGY ORDERABLE S [facility] [place] [address] * (ABNORMAL) Basic Metabolic Panel (non-fasting) (07/08/2023 5:52 AM EDT) Glucose Lvl 102 65 - 199 mg/dL [facility] Comment:Diabetes: >=200 mg/d L plus symptoms BUN 14 8 - 18 mg/dL [facility] Creatinine 1.30(H) 0.70 - 1.20 mg/dL [facility] Sodium 139 135 - 145 mmol/L [facility] Potassium 3.2(L) 3.5 - 5.0 mmol/L [facility] Comment: Please note: ??Patients with WBC >100,000 may have falsely elevated Potassium levels. ??For accurate Potassium quantification in these patients send serum separator tube (gold top) for subsequent determinations. ??Contact the Clinical Chemistry Laboratory if there are any questions. Chloride 101 98 - 107 mmol/L [facility] CO2 25 22 - 31 mmol/L [facility] Anion Gap 13 5 - 15 mmol/L [facility] Calcium 9.3 8.5 - 10.5 mg/dL [facility] Estimated GFR 49(L) >=60 mL/min/1. 73 m?? [facility] [...] MD CHEMISTRY ORDERABL ES Performing Organization Address [facility]/ZIP Co de Phone Number [facility] [place] [address] * Phosphorus (07/08/2023 5:52 AM EDT) Phosphorus 4.3 2.5 - 4.5 mg/dL [facility] Blood 07/08/2023 5:52 AM EDT 07/08/2023 5:58 AM EDT Narrative Resulting Agency Comment Spec In Lab Eufemia Copeland MD CHEMISTRY ORDERABL ES Performing Organization Address [facility] Co de Phone Number [facility] [place] [address] * Magnesium (07/08/2023 5:52 AM EDT) Magnesium 0.89 0.69 - 1.07 mmol/L [facility] Blood 07/08/2023 5:52 AM EDT 07/08/2023 5:58 AM EDT Narrative Resulting Agency Comment Spec In Lab Eufemia Copeland MD CHEMISTRY ORDERABL ES Performing Organization Address [facility] Co de Phone Number [facility] [place] [address] * Heparin (unfractionated) Level (07/08/2023 12:00 AM EDT) Heparin UFH Level 0.22 IU/mL [facility] [...] MD HEMATOLOGY ORDERABLE S Performing Organization Address [facility] Co de Phone Number [facility] [place] [address] * Specimen to Pathology (07/07/2023 2:55 PM EDT) AP Specimen 07/07/2023 2:55 PM EDT 07/07/2023 2:55 PM EDT Narrative [facility] - 07/07/2023 2:55 PM EDT Specimen requisition ordered. ??Separate Pathology report to follow Terrence Keating MD PATHOLOGY/CYTOLOGY O RUMA Performing Organization Address [facility] Co de Phone Number [facility] [place] [address] * Specimen to Pathology (07/07/2023 2:38 PM EDT) AP Specimen 07/07/2023 2:38 PM EDT 07/07/2023 2:38 PM EDT Narrative [facility] - 07/07/2023 2:38 PM EDT Specimen requisition ordered. ??Separate Pathology report to follow Terrence Keating MD PATHOLOGY/CYTOLOGY O RUMA Performing Organization Address [facility] Co de Phone Number [facility] [place] [address] * Specimen to Pathology (07/07/2023 2:38 PM EDT) AP Specimen 07/07/2023 2:38 PM EDT 07/07/2023 2:38 PM EDT Narrative [facility] - 07/07/2023 2:38 PM EDT Specimen requisition ordered. ??Separate Pathology report to follow Terrence Keating MD PATHOLOGY/CYTOLOGY O RUMA [facility] [place] [address] * Surgical Pathology Report (07/07/2023 2:25 PM EDT) FINAL DIAGNOSIS (AP) [id number] ? Location: [facility]; [facility]; The signing pathologist has [...] Sapna Verified: ??07/19/2023 13:25 ??Pathologist Performed at: ??-[facility] Dept. of Pathology, [place] [address] Backhaul Driver: Vangie Lu MD, FCAP, ??CLIA Certificate: [id number] SPECIMEN(S) SUBMITTED A - duodenal biopsies rule [...] labeled C1-C2. ??sdy 07/19/2023 1:25 PM EDT [facility] 07/07/2023 2:25 PM EDT Lashonda Villa MD PATHOLOGY/CYTOLOGY O RUMA [facility] [place] [address] * COLONOSCOPY (07/07/2023 1:39 PM EDT) COLONOSCOPY [facility] Endoscopy Procedure Date: 07/07/2023 1:39 PM ? Patient Name: Loida Roque ? Date of : 1970 ? Age: 53 ? Order #: [id number] ? Instrument Name: [id number] ? Procedure: ? Colonoscopy Indications: ? Abdominal pain, Diarrhea Providers: ? Lashonda Villa MD, [place] ? Mercedes San Lori Agan Referring MD: [...] ? was evaluated using the BBPS ? ([place] Bowel Preparation Scale) ? with scores of: [...] Procedure Code(s): ? --- Professional --- ? 45169, Colonoscopy, flexible; with ? biopsy, single or multiple CPT copyright 2021 [employer]. All rights reserved. The codes documented in this report are preliminary and upon fast food server review may be revised to meet current [...] 1 EIA Negative for Shiga Toxin 2 [facility] Stool 07/07/2023 12:1 0 PM EDT 07/07/2023 12:53 PM EDT Narrative Resulting Agency Comment Spec In Lab Ailyn Irvin MD MICROBIOLOGY - GENER AL ORDERABLES Performing Organization Address City/[facility]/ZIP Co de Phone Number [facility] [place] [address] * Campylobacter Antigen (07/07/2023 12:10 PM EDT) Pathologist [facility] Campylobacter Ag Immunoassay Negative for Campylobacter Antigen [facility] Stool 07/07/2023 12:1 0 PM EDT 07/07/2023 12:53 PM EDT Narrative Resulting Agency Comment Spec In Lab Ailyn Irvin MD MICROBIOLOGY - GENER AL ORDERABLES Performing Organization Address City/[facility] Co de Phone Number [facility] [place] [address] * Stool culture (07/07/2023 12:10 PM EDT) Pathologist [facility] Stool Culture No enteric pathogens isolated [facility] Stool 07/07/2023 12:1 0 PM EDT 07/07/2023 12:53 PM EDT Narrative Resulting Agency Comment Spec In Lab Ailyn Irvin MD MICROBIOLOGY - GENER AL ORDERABLES Performing Organization Address City/[facility]/ZIP Co de Phone Number [facility] [place] [address] * (ABNORMAL) Differential, Automated (07/07/2023 3:51 AM EDT) Neutrophils % 58.9 % [facility] Neutr Abs (ANC) 4.67 1.70 - 6.10 x10(3)/mc L [facility] Lymphocytes % 24.8 % [facility] Lymphocytes Abs 2.0 0.9 - 3.2 x10(3)/[facility] LABORATORY Monocytes % 9.4 % [facility] Monocyte Abs 0.7 0.3 - 0.9 x10(3)/[facility] LABORATORY Eosinophils % 6.1 % [facility] Eosinophils Abs 0.5(H) 0.0 - 0.4 x10(3)/[facility] LABORATORY Basophils % 0.5 % [facility] Basophils Abs 0.0 0.0 - 0.1 x10(3)/[facility] LABORATORY Immature Gran % 0.30 % [facility] Comment: Immature granulocytes(IG's)percentage and absolute count will include metamyelocytes, myelocytes, and promyelocytes. Blood smears from CBCs yielding IG's will be scanned manually for concordance. If this scan disagrees with the automated IG or if promyelocytes are noted, a manual differential will be performed. Shonda Gran Abs 0.02 0.00 - 0.04 x10(3)/[facility] LABORATORY Blood 07/07/2023 3:51 AM EDT 07/07/2023 4:08 AM EDT Narrative Resulting Agency Comment Spec In Lab Terrence Keating MD HEMATOLOGY ORDERABLE S [facility] [place] [address] * Hemogram (07/07/2023 3:51 AM EDT) WBC 7.9 4.0 - 9.5 x10(3)/[facility] LABORATORY RBC 4.42 4.00 - 5.21 x10(6)/[facility] LABORATORY Hemoglobin 13.8 11.7 - 15.5 g/dL [facility] Hematocrit 41.0 35.7 - 45.8 % [facility] MCV 92.8 82.6 - 94.4 fL [facility] MCH 31.2 27.1 - 32.0 pg [facility] MCHC 33.7 31.7 - 35.0 g/dL [facility] Platelets 255 145 - 357 x10(3)/[facility] LABORATORY RDWSD 44.8 37.0 - 46.0 fL [facility] RDWCV 13.2 11.5 - 14.1 % [facility] MPV 10.6 7.6 - 12.9 [facility] LABORATORY nRBC % Auto 0.0 % [facility] nRBC Abs Auto 0.000 0.000 - 0.000 x10(3)/[facility] LABORATORY Blood 07/07/2023 3:51 AM EDT 07/07/2023 4:08 AM EDT Narrative Resulting Agency Comment Spec In Lab Terrence Keating MD HEMATOLOGY ORDERABLE S [facility] [place] [address] * Heparin (unfractionated) Level (07/07/2023 3:51 AM EDT) Heparin UFH Level 0.33 IU/mL [facility] [...] Lab Terrence Keating MD HEMATOLOGY ORDERABLE S [facility] [place] [address] * (ABNORMAL) Basic Metabolic Panel (non-fasting) (07/07/2023 3:51 AM EDT) Glucose Lvl 101 65 - 199 mg/dL [facility] Comment:Diabetes: >=200 mg/d L plus symptoms BUN 18 8 - 18 mg/dL [facility] Creatinine 1.30(H) 0.70 - 1.20 mg/dL [facility] Sodium 135 135 - 145 mmol/L [facility] Potassium 3.5 3.5 - 5.0 mmol/L [facility] Comment: Please note: ??Patients with WBC >100,000 may have falsely elevated Potassium levels. ??For accurate Potassium quantification in these patients send serum separator tube (gold top) for subsequent determinations. ??Contact the Clinical Chemistry Laboratory if there are any questions. Chloride 96(L) 98 - 107 mmol/L [facility] CO2 23 22 - 31 mmol/L [facility] Anion Gap 16(H) 5 - 15 mmol/L [facility] Calcium 9.4 8.5 - 10.5 mg/dL [facility] Estimated GFR 49(L) >=60 mL/min/1. 73 m?? [facility] MD CHEMISTRY ORDERABL ES Performing Organization Address [facility] Co de Phone Number [facility] [place] [address] * Phosphorus (07/07/2023 3:51 AM EDT) Phosphorus 4.0 2.5 - 4.5 mg/dL [facility] Blood 07/07/2023 3:51 AM EDT 07/07/2023 4:08 AM EDT Narrative Resulting Agency Comment Spec In Lab Eufemia Copeland MD CHEMISTRY ORDERABL ES Performing Organization Address [facility] de Phone Number [facility] [place] [address] * Magnesium (07/07/2023 3:51 AM EDT) Magnesium 0.87 0.69 - 1.07 mmol/L [facility] Blood 07/07/2023 3:51 AM EDT 07/07/2023 4:08 AM EDT Narrative Resulting Agency Comment Spec In Lab Eufemia Copeland MD CHEMISTRY ORDERABL ES Performing Organization Address [facility] Co de Phone Number [facility] [place] [address] * Hepatic Function Panel (07/07/2023 3:51 AM EDT) Total Protein 7.5 6.1 - 8.0 g/dL [facility] Albumin 4.4 3.2 - 5.2 g/dL [facility] AST 15 0 - 30 unit/L [facility] ALT 20 0 - 30 unit/L [facility] Alk Phos 54 35 - 105 unit/L [facility] Total Bilirubin 0.4 0.2 - 1.3 mg/dL [facility] Bili, Direct 0.1 0.0 - 0.3 mg/dL [facility] Blood 07/07/2023 3:51 AM EDT 07/07/2023 4:08 AM EDT Narrative Resulting Agency Comment Spec In Lab Ailyn Irvin MD CHEMISTRY ORDERABLES Performing Organization Address City/[facility]/ZIP Co de Phone Number [facility] [place] [address] * Giardia/Cryptosporidium Antigens ([facility]/CGP/APD/NLH) (07/07/2023 12:38 AM EDT) Giardia Screen Negative Negative [facility] Comment:Examination for othe r intestinal parasites requires foreign travel history. Cryptosporidium Screen Negative Negative [facility] Stool 07/07/2023 12:3 8 AM EDT 07/07/2023 7:56 AM EDT Narrative Resulting Agency Comment Spec In Lab Ailyn Irvin MD MICROBIOLOGY - GENER AL ORDERABLES Performing Organization Address City/[facility]/ZIP Co de Phone Number [facility] [place] [address] * Hepatic Function Panel (07/06/2023 3:41 PM EDT) Total Protein 7.6 6.1 - 8.0 g/dL [facility] Albumin 4.3 3.2 - 5.2 g/dL [facility] AST 20 0 - 30 unit/L [facility] ALT 22 0 - 30 unit/L [facility] Alk Phos 58 35 - 105 unit/L [facility] Total Bilirubin 0.4 0.2 - 1.3 mg/dL [facility] Bili, Direct 0.1 0.0 - 0.3 mg/dL [facility] Blood 07/06/2023 3:41 PM EDT 07/06/2023 4:00 PM EDT Narrative Resulting Agency Comment Spec In Lab Terrence Keating MD CHEMISTRY ORDERABLES Performing Organization Address City/[facility]/ZIP Co de Phone Number [facility] [place] [address] * Hepatic Function Panel (07/06/2023 3:54 AM EDT) Pathologist [facility] Total Protein 7.6 6.1 - 8.0 g/dL [facility] Albumin 4.3 3.2 - 5.2 g/dL [facility] AST Not Perf 0 - 30 [facility] Comment: Unable to quantitate due to sample hemolysis. ??Sample redraw suggested. Called by: [email or web address], Read back by: Ana Paula Borja, Date/Time:07/06/23 14:08. ALT 25 0 - 30 unit/L [facility] Alk Phos 58 35 - 105 unit/L [facility] Total Bilirubin 0.4 0.2 - 1.3 mg/dL [facility] Bili, Direct Not Perf 0.0 - 0.3 [facility] Blood Venous Draw / Unknown 07/06/2023 3:54 AM EDT 07/06/2023 4:18 AM EDT Narrative Resulting Agency Comment Spec In Lab Terrence Keating MD CHEMISTRY ORDERABLES Performing Organization Address City/[facility]/ZIP Co de Phone Number [facility] [place] [address] * (ABNORMAL) Differential, Automated (07/06/2023 3:54 AM EDT) Pathologist [facility] Neutrophils % 56.6 % [facility] Neutr Abs (ANC) 4.34 1.70 - 6.10 x10(3)/mc L [facility] Lymphocytes % 26.1 % [facility] Lymphocytes Abs 2.0 0.9 - 3.2 x10(3)/[facility] LABORATORY Monocytes % 9.6 % [facility] Monocyte Abs 0.7 0.3 - 0.9 x10(3)/[facility] LABORATORY Eosinophils % 6.6 % [facility] Eosinophils Abs 0.5(H) 0.0 - 0.4 x10(3)/[facility] LABORATORY Basophils % 0.7 % [facility] Basophils Abs 0.0 0.0 - 0.1 x10(3)/[facility] LABORATORY Immature Gran % 0.40 % [facility] Comment: Immature granulocytes(IG's)percentage and absolute count will include metamyelocytes, myelocytes, and promyelocytes. Blood smears from CBCs yielding IG's will be scanned manually for concordance. If this scan disagrees with the automated IG or if promyelocytes are noted, a manual differential will be performed. Shonda Gran Abs 0.03 0.00 - 0.04 x10(3)/[facility] LABORATORY Blood 07/06/2023 3:54 AM EDT 07/06/2023 4:12 AM EDT Narrative Resulting Agency Comment Spec In Lab Terrence Keating MD HEMATOLOGY ORDERABLE S Performing Organization Address City/State/[facility] Co de Phone Number [facility] [place] [address] * (ABNORMAL) Hemogram (07/06/2023 3:54 AM EDT) WBC 7.7 4.0 - 9.5 x10(3)/[facility] LABORATORY RBC 4.62 4.00 - 5.21 x10(6)/[facility] LABORATORY Hemoglobin 14.7 11.7 - 15.5 g/dL [facility] Hematocrit 43.8 35.7 - 45.8 % [facility] MCV 94.8(H) 82.6 - 94.4 fL [facility] MCH 31.8 27.1 - 32.0 pg [facility] MCHC 33.6 31.7 - 35.0 g/dL [facility] Platelets 243 145 - 357 x10(3)/[facility] LABORATORY RDWSD 47.2(H) 37.0 - 46.0 [facility] LABORATORY RDWCV 13.5 11.5 - 14.1 % [facility] MPV 10.4 7.6 - 12.9 [facility] LABORATORY nRBC % Auto 0.0 % [facility] nRBC Abs Auto 0.000 0.000 - 0.000 x10(3)/[facility] LABORATORY Blood 07/06/2023 3:54 AM EDT 07/06/2023 4:12 AM EDT Narrative Resulting Agency Comment Spec In Lab Terrence Keating MD HEMATOLOGY ORDERABLE S [facility] [place] [address] * (ABNORMAL) Basic Metabolic Panel (non-fasting) (07/06/2023 3:54 AM EDT) Glucose Lvl 107 65 - 199 mg/dL [facility] Comment:Diabetes: >=200 mg/d L plus symptoms BUN 16 8 - 18 mg/dL [facility] Creatinine 1.25(H) 0.70 - 1.20 mg/dL [facility] Sodium 135 135 - 145 mmol/L [facility] Potassium 3.9 3.5 - 5.0 mmol/L [facility] Comment: Please note: ??Patients with WBC >100,000 may have falsely elevated Potassium levels. ??For accurate Potassium quantification in these patients send serum separator tube (gold top) for subsequent determinations. ??Contact the Clinical Chemistry Laboratory if there are any questions. Chloride 98 98 - 107 mmol/L [facility] CO2 23 22 - 31 mmol/L [facility] Anion Gap 14 5 - 15 mmol/L [facility] Calcium 10.0 8.5 - 10.5 mg/dL [facility] Estimated GFR 51(L) >=60 mL/min/1. 73 m?? [facility] MD CHEMISTRY ORDERABL ES Performing Organization Address [facility] Co de Phone Number [facility] [place] [address] * Phosphorus (07/06/2023 3:54 AM EDT) Phosphorus 4.5 2.5 - 4.5 mg/dL [facility] Blood 07/06/2023 3:54 AM EDT 07/06/2023 4:18 AM EDT Narrative Resulting Agency Comment Spec In Lab Eufemia Copeland MD CHEMISTRY ORDERABL ES Performing Organization Address [facility] Co de Phone Number [facility] [place] [address] * Magnesium (07/06/2023 3:54 AM EDT) Magnesium 0.97 0.69 - 1.07 mmol/L [facility] Blood 07/06/2023 3:54 AM EDT 07/06/2023 4:18 AM EDT Narrative Resulting Agency Comment Spec In Lab Eufemia Copeland MD CHEMISTRY ORDERABL ES Performing Organization Address [facility] Co de Phone Number [facility] [place] [address] * Heparin (unfractionated) Level (07/06/2023 3:54 AM EDT) Heparin UFH Level 0.31 IU/mL [facility] [...] Lab Ailyn Irvin MD HEMATOLOGY ORDERABLE S [facility] [place] [address] * Amylase (07/05/2023 5:44 PM EDT) Amylase 35 28 - 100 unit/L [facility] Blood 07/05/2023 5:44 PM EDT 07/05/2023 6:00 PM EDT Narrative Resulting Agency Comment Spec In Lab Terrence Keating MD CHEMISTRY ORDERABLES [facility] [place] [address] * Lipase (07/05/2023 5:44 PM EDT) Lipase 17 0 - 60 unit/L [facility] Blood 07/05/2023 5:44 PM EDT 07/05/2023 6:00 PM EDT Narrative Resulting Agency Comment Spec In Lab Terrence Keating MD CHEMISTRY ORDERABLES Performing Organization Address [facility] Co de Phone Number [facility] [place] [address] * (ABNORMAL) Basic Metabolic Panel (non-fasting) (07/05/2023 5:44 PM EDT) Pathologist [facility] Glucose Lvl 130 65 - 199 mg/dL [facility] Comment:Diabetes: >=200 mg/d L plus symptoms BUN 17 8 - 18 mg/dL [facility] Creatinine 1.30(H) 0.70 - 1.20 mg/dL [facility] Sodium 134(L) 135 - 145 mmol/L [facility] Potassium 3.7 3.5 - 5.0 mmol/L [facility] Comment: Please note: ??Patients with WBC >100,000 may have falsely elevated Potassium levels. ??For accurate Potassium quantification in these patients send serum separator tube (gold top) for subsequent determinations. ??Contact the Clinical Chemistry Laboratory if there are any questions. Chloride 98 98 - 107 mmol/L [facility] CO2 21(L) 22 - 31 mmol/L [facility] Anion Gap 15 5 - 15 mmol/L [facility] Calcium 9.6 8.5 - 10.5 mg/dL [facility] Estimated GFR 49(L) >=60 mL/min/1. 73 m?? [facility] Keating MD CHEMISTRY ORDERABLES Performing Organization Address City/State/[facility] Co de Phone Number [facility] [place] [address] * Duplex Study Visceral Arteries, Comp (07/05/2023 9:46 AM EDT) VB Text Report Department: Vascular Surgery Lab Patient: [id number] (LOIDA ROQUE) CPT: [id number] Referring Physician: TERRENCE KEATING ?? Phone: Indications: [...] ?Bi-Triphasic ?101 ?11 ?? Hepatic Artery ? Andrews-Biphasic ? 123 ?23 ?? Splenic Artery ? Andrews-Biphasic ? 122 ?24 ?? Inf Mes Artery [...] Neutr Abs (ANC) 5.59 1.70 - 6.10 x10(3)/[facility] LABORATORY Lymphocytes % 22.4 % [facility] Lymphocytes Abs 2.0 0.9 - 3.2 x10(3)/[facility] LABORATORY Monocytes % 9.7 % [facility] Monocyte Abs 0.9 0.3 - 0.9 x10(3)/[facility] LABORATORY Eosinophils % 4.1 % [facility] Eosinophils Abs 0.4 0.0 - 0.4 x10(3)/[facility] LABORATORY Basophils % 0.6 % [facility] Basophils Abs [...] Lab Terrence Keating MD HEMATOLOGY ORDERABLE S [facility] [place] [address] * (ABNORMAL) Hemogram (07/05/2023 5:05 AM EDT) WBC 8.9 4.0 - 9.5 x10(3)/[facility] LABORATORY RBC 4.42 4.00 - 5.21 x10(6)/[facility] LABORATORY Hemoglobin 13.7 11.7 - 15.5 g/dL [facility] Hematocrit 41.4 35.7 - 45.8 % [facility] MCV 93.7 82.6 - 94.4 fL [facility] MCH 31.0 27.1 - 32.0 pg [facility] MCHC 33.1 31.7 - 35.0 g/dL [facility] Platelets 245 145 - 357 x10(3)/[facility] LABORATORY RDWSD 47.1(H) 37.0 - 46.0 fL [facility] RDWCV 13.7 11.5 - 14.1 % [facility] MPV 10.8 7.6 - 12.9 fL [facility] nRBC % Auto 0.0 % [facility] nRBC Abs Auto 0.000 0.000 - 0.000 x10(3)/[facility] LABORATORY Blood 07/05/2023 5:05 AM EDT 07/05/2023 5:17 AM EDT Narrative Resulting Agency Comment Spec In Lab Terrence Keating MD HEMATOLOGY ORDERABLE S [facility] [place] [address] * Heparin (unfractionated) Level (07/05/2023 5:05 AM EDT) Heparin UFH Level 0.35 IU/mL [facility] [...] Lab Ailyn Irvin MD HEMATOLOGY ORDERABLE S [facility] [place] [address] * (ABNORMAL) Basic Metabolic Panel (non-fasting) (07/05/2023 5:05 AM EDT) Glucose Lvl 114 65 - 199 mg/dL [facility] Comment:Diabetes: >=200 mg/d L plus symptoms BUN 19(H) 8 - 18 mg/dL [facility] Creatinine 1.51(H) 0.70 - 1.20 mg/dL [facility] Sodium 134(L) 135 - 145 mmol/L [facility] Potassium 3.8 3.5 - 5.0 mmol/L [facility] Comment: Please note: ??Patients with WBC >100,000 may have falsely elevated Potassium levels. ??For accurate Potassium quantification in these patients send serum separator tube (gold top) for subsequent determinations. ??Contact the Clinical Chemistry Laboratory if there are any questions. Chloride 97(L) 98 - 107 mmol/L [facility] CO2 25 22 - 31 mmol/L [facility] Anion Gap 12 5 - 15 mmol/L [facility] Calcium 10.0 8.5 - 10.5 mg/dL [facility] Estimated GFR 41(L) >=60 mL/min/1. 73 m?? [facility] MD CHEMISTRY ORDERABL ES Performing Organization Address [facility] Co de Phone Number [facility] [place] [address] * (ABNORMAL) Phosphorus (07/05/2023 5:05 AM EDT) Pathologist [facility] Phosphorus 5.0(H) 2.5 - 4.5 mg/dL [facility] Blood 07/05/2023 5:05 AM EDT 07/05/2023 5:17 AM EDT Narrative Resulting Agency Comment Spec In Lab Eufemia Copeland MD CHEMISTRY ORDERABL ES Performing Organization Address [facility] Co de Phone Number [facility] [place] [address] * Magnesium (07/05/2023 5:05 AM EDT) Pathologist [facility] Magnesium 1.01 0.69 - 1.07 mmol/L [facility] Blood 07/05/2023 5:05 AM EDT 07/05/2023 5:17 AM EDT Narrative Resulting Agency Comment Spec In Lab Eufemia Copeland MD CHEMISTRY ORDERABL ES Performing Organization Address [facility] Co de Phone Number [facility] [place] [address] * EKG 12 Lead (07/04/2023 11:41 AM EDT) Ventricular rate 76 BPM MUSE SYSTEM Atrial Rate 76 BPM MUSE SYSTEM P-R Interval 174 ms MUSE SYSTEM QRS Duration 88 ms MUSE SYSTEM Q-T Interval 450 ms MUSE SYSTEM QTC Calculated (Bezet) 506 ms MUSE SYSTEM Calculated P [place] 36 degrees MUSE SYSTEM Calculated R [place] 35 degrees MUSE SYSTEM Calculated T [place] 37 degrees MUSE SYSTEM INTERPRETATION Normal [facility] Lymphocytes % 24.4 % [facility] Lymphocytes Abs 2.0 0.9 - 3.2 x10(3)/[facility] LABORATORY Monocytes % 8.1 % [facility] Monocyte Abs 0.7 0.3 - 0.9 x10(3)/[facility] LABORATORY Eosinophils % 3.4 % [facility] Eosinophils Abs 0.3 0.0 - 0.4 x10(3)/[facility] LABORATORY Basophils % 0.4 % [facility] Basophils Abs [...] Lab Terrence Keating MD HEMATOLOGY ORDERABLE S [facility] [place] [address] * (ABNORMAL) Hemogram (07/04/2023 3:47 AM EDT) WBC 8.2 4.0 - 9.5 x10(3)/[facility] LABORATORY RBC 4.26 4.00 - 5.21 x10(6)/[facility] LABORATORY Hemoglobin 13.5 11.7 - 15.5 g/dL [facility] Hematocrit 40.0 35.7 - 45.8 % [facility] MCV 93.9 82.6 - 94.4 [facility] LABORATORY MCH 31.7 27.1 - 32.0 pg [facility] MCHC 33.8 31.7 - 35.0 g/dL [facility] Platelets 219 145 - 357 x10(3)/[facility] LABORATORY RDWSD 47.0(H) 37.0 - 46.0 [facility] LABORATORY RDWCV 13.7 11.5 - 14.1 % [facility] MPV 11.0 7.6 - 12.9 [facility] LABORATORY nRBC % Auto 0.0 % [facility] nRBC Abs Auto 0.000 0.000 - 0.000 x10(3)/[facility] LABORATORY Blood 07/04/2023 3:47 AM EDT 07/04/2023 4:15 AM EDT Narrative Resulting Agency Comment Spec In Lab Terrence Keating MD HEMATOLOGY ORDERABLE S [facility] [place] [address] * Heparin (unfractionated) Level (07/04/2023 3:47 AM EDT) [facility] Heparin UFH Level 0.44 IU/mL [facility] [...] Lab Ailyn Irvin MD HEMATOLOGY ORDERABLE S [facility] [place] [address] * (ABNORMAL) Basic Metabolic Panel (non-fasting) (07/04/2023 3:47 AM EDT) [facility] Glucose Lvl 104 65 - 199 mg/dL [facility] Comment:Diabetes: >=200 mg/d L plus symptoms BUN 16 8 - 18 mg/dL [facility] Creatinine 1.28(H) 0.70 - 1.20 mg/dL [facility] Sodium 139 135 - 145 mmol/L [facility] Potassium 3.8 3.5 - 5.0 mmol/L [facility] Comment: Please note: ??Patients with WBC >100,000 may have falsely elevated Potassium levels. ??For accurate Potassium quantification in these patients send serum separator tube (gold top) for subsequent determinations. ??Contact the Clinical Chemistry Laboratory if there are any questions. Chloride 102 98 - 107 mmol/L [facility] CO2 21(L) 22 - 31 mmol/L [facility] Anion Gap 16(H) 5 - 15 mmol/L [facility] Calcium 9.5 8.5 - 10.5 mg/dL [facility] Estimated GFR 50(L) >=60 mL/min/1. 73 m?? [facility] MD CHEMISTRY ORDERABL ES Performing Organization Address [facility]/ZIP Co de Phone Number [facility] [place] [address] * (ABNORMAL) Phosphorus (07/04/2023 3:47 AM EDT) Phosphorus 4.9(H) 2.5 - 4.5 mg/dL [facility] Blood 07/04/2023 3:47 AM EDT 07/04/2023 4:15 AM EDT Narrative Resulting Agency Comment Spec In Lab Eufemia Copeland MD CHEMISTRY ORDERABL ES Performing Organization Address City/[facility]/ZIP Co de Phone Number [facility] [place] [address] * Magnesium (07/04/2023 3:47 AM EDT) Magnesium 1.05 0.69 - 1.07 mmol/L [facility] Blood 07/04/2023 3:47 AM EDT 07/04/2023 4:15 AM EDT Narrative Resulting Agency Comment Spec In Lab Eufemia Copeland MD CHEMISTRY ORDERABL ES [facility] [place] [address] * EKG 12 Lead (07/03/2023 9:36 PM EDT) Ventricular rate 61 BPM MUSE SYSTEM Atrial Rate 61 BPM MUSE SYSTEM P-R Interval 188 ms MUSE SYSTEM QRS Duration 88 ms MUSE SYSTEM Q-T Interval 512 ms MUSE SYSTEM QTC Calculated (Bezet) 515 ms MUSE SYSTEM Calculated P [place] 56 degrees MUSE SYSTEM Calculated R [place] 69 degrees MUSE SYSTEM Calculated T [place] 29 degrees MUSE SYSTEM INTERPRETATION Normal sinus [...] EDT) Magnesium 0.89 0.69 - 1.07 mmol/L [facility] Blood 07/03/2023 6:00 PM EDT 07/03/2023 6:07 PM EDT Narrative Resulting Agency Comment Spec In Lab Lino Calles MD CHEMISTRY ORDERABLES [facility] [place] [address] * (ABNORMAL) Basic Metabolic Panel (non-fasting) (07/03/2023 6:00 PM EDT) Glucose Lvl 116 65 - 199 mg/dL [facility] Comment:Diabetes: >=200 mg/d L plus symptoms BUN 16 8 - 18 mg/dL [facility] Creatinine 1.37(H) 0.70 - 1.20 mg/dL [facility] questions. Chloride 102 98 - 107 mmol/L [facility] CO2 21(L) 22 - 31 mmol/L [facility] Anion Gap 14 5 - 15 mmol/L [facility] Calcium 9.5 8.5 - 10.5 mg/dL [facility] Estimated GFR 46(L) >=60 mL/min/1. 73 m?? [facility] In Lab Lino Calles MD CHEMISTRY ORDERABLES [facility] [place] [address] * XR Chest One View (07/03/2023 3:18 PM EDT) WORKSTATION ID [id number] RAD Anatomical Region Laterality Modality Chest N/A Digital Radiogra phy Impressions 07/03/2023 3:27 PM EDT No pulmonary edema or pleural effusion Thank you for letting us participate in the care of this patient. ??If you are a health care provider and have any questions regarding this report, please contact the number below. ??For patients who have questions please contact the health home care administrator that requested your imaging first. ? [...] have questions please contactthe health home care administrator that requested your imaging first. Lino Calles MD IMG DX ORDERABLES * Arterial Duplex Leg, Unil (07/03/2023 9:34 AM EDT) VB Text Report Department: Vascular Surgery Lab Patient: [id number] (LOIDA ROQUE) CPT: 29238 Referring Physician: LINO CALLES ?? Phone: Indications: [...] Calles MD VASCULAR ORDERABLES Performing Organization Address City/[facility]/ZIP Co de Phone Number [email or web address] * Differential, Automated (07/03/2023 3:07 AM EDT) Neutrophils % 67.2 % [facility] Neutr Abs (ANC) 5.51 1.70 - 6.10 x10(3)/[facility] Lymphocytes % 20.7 % [facility] Lymphocytes Abs 1.7 0.9 - 3.2 x10(3)/[facility] Monocytes % 7.7 % [facility] Monocyte Abs 0.6 0.3 - 0.9 x10(3)/[facility] Eosinophils % 3.7 % [facility] Eosinophils Abs 0.3 0.0 - 0.4 x10(3)/[facility] Basophils % 0.5 % [facility] Basophils Abs [...] Lab Terrence Keating MD HEMATOLOGY ORDERABLE S [facility] [place] [address] * (ABNORMAL) Hemogram (07/03/2023 3:07 AM EDT) WBC 8.2 4.0 - 9.5 x10(3)/[facility] RBC 3.97(L) 4.00 - 5.21 x10(6)/[facility] Hemoglobin 12.5 11.7 - 15.5 g/dL [facility] Hematocrit 38.5 35.7 - 45.8 % [facility] MCV 97.0(H) 82.6 - 94.4 fL [facility] MCH 31.5 27.1 - 32.0 pg [facility] MCHC 32.5 31.7 - 35.0 g/dL [facility] Platelets 203 145 - 357 x10(3)/[facility]ORY RDWSD 49.6(H) 37.0 - 46.0 [facility] LABORATORY RDWCV 13.7 11.5 - 14.1 % [facility] MPV 10.8 7.6 - 12.9 [facility] LAB[facility]ORY nRBC % Auto 0.0 % [facility] nRBC Abs Auto 0.000 0.000 - 0.000 x10(3)/[facility] Blood 07/03/2023 3:07 AM EDT 07/03/2023 3:15 AM EDT Narrative Resulting Agency Comment Spec In Lab Terrence Keating MD HEMATOLOGY ORDERABLE S [facility] [place] [address] * Heparin (unfractionated) Level (07/03/2023 3:07 AM EDT) Heparin UFH Level 0.49 IU/mL [facility] [...] Lab Ailyn Irvin MD HEMATOLOGY ORDERABLE S [facility] [place] [address] * (ABNORMAL) Basic Metabolic Panel (non-fasting) (07/03/2023 3:07 AM EDT) Glucose Lvl 104 65 - 199 mg/dL [facility] Comment:Diabetes: >=200 mg/d L plus symptoms BUN 16 8 - 18 mg/dL [facility] Creatinine 1.20 0.70 - 1.20 mg/dL [facility] Sodium 138 135 - 145 mmol/L [facility] Potassium 4.2 3.5 - 5.0 mmol/L [facility] Comment: Please note: ??Patients with WBC >100,000 may have falsely elevated Potassium levels. ??For accurate Potassium quantification in these patients send serum separator tube (gold top) for subsequent determinations. ??Contact the Clinical Chemistry Laboratory if there are any questions. Chloride 107 98 - 107 mmol/L [facility] CO2 20(L) 22 - 31 mmol/L [facility] Anion Gap 11 5 - 15 mmol/L [facility] Calcium 8.8 8.5 - 10.5 mg/dL [facility] Estimated GFR 54(L) >=60 mL/min/1. 73 m?? [facility] MD CHEMISTRY ORDERABL ES Performing Organization Address [facility] Co de Phone Number [facility] [place] [address] * Phosphorus (07/03/2023 3:07 AM EDT) Phosphorus 3.6 2.5 - 4.5 mg/dL [facility] Blood 07/03/2023 3:07 AM EDT 07/03/2023 3:15 AM EDT Narrative Resulting Agency Comment Spec In Lab Eufemia Copeland MD CHEMISTRY ORDERABL ES [facility] [place] [address] * Magnesium (07/03/2023 3:07 AM EDT) Magnesium 0.93 0.69 - 1.07 mmol/L [facility] Blood 07/03/2023 3:07 AM EDT 07/03/2023 3:15 AM EDT Narrative Resulting Agency Comment Spec In Lab Eufemia Copeland MD CHEMISTRY ORDERABL ES Performing Organization Address [facility]/ZIP Co de Phone Number [facility] [place] [address] * Heparin (unfractionated) Level (07/02/2023 8:58 PM EDT) Heparin UFH Level 0.60 IU/mL [facility] [...] MD HEMATOLOGY ORDERABLE S Performing Organization Address [facility]/ZIP Co de Phone Number [facility] [place] [address] * VS Arteriogram Mesenteric Vascular Surgery (07/02/2023 [...] anesthetic: 10 cc 1% lidocaine Heparin: Yes 40080 ?? Units Protamine: No ??mg Antibiotics: Ancef [...] We exchanged the sheath for a 7 [place]onese tour sales representative steerable sheath over a stiff wire. ??A Glidewire and Kumpe catheter were used to selectively cannulate the superior mesenteric artery. ??Direct angiography of the superior mesenteric artery was performed, confirming the results of the nonselective aortography performed. ??The lesion was predilated with a 4 mm x 40 mm [place] balloon, and then a 6 mm X [facility] Lymphocytes % 27.6 % [facility] Lymphocytes Abs 2.1 0.9 - 3.2 x10(3)/[facility] LAB[facility]ATORY Monocytes % 6.4 % [facility] Monocyte Abs 0.5 0.3 - 0.9 x10(3)/[facility] LAB[facility] Eosinophils % 3.9 % [facility] Eosinophils Abs 0.3 0.0 - 0.4 x10(3)/[facility] Basophils % 0.5 % [facility] Basophils Abs 0.0 0.0 - 0.1 x10(3)/[facility] Immature Gran % 0.30 % [facility] [...] Lab Terrence Keating MD HEMATOLOGY ORDERABLE S [facility] [place] [address] * (ABNORMAL) Hemogram (07/02/2023 3:58 AM EDT) WBC 7.6 4.0 - 9.5 x10(3)/[facility] LAB[facility] RBC 4.12 4.00 - 5.21 x10(6)/[facility] Hemoglobin 12.9 11.7 - 15.5 g/dL [facility] Hematocrit 39.5 35.7 - 45.8 % [facility] MCV 95.9(H) 82.6 - 94.4 fL [facility] MCH 31.3 27.1 - 32.0 pg [facility] MCHC 32.7 31.7 - 35.0 g/dL [facility] Platelets 200 145 - 357 x10(3)/[facility] LAB[facility]ORY RDWSD 47.4(H) 37.0 - 46.0 [facility] RDWCV 13.3 11.5 - 14.1 % [facility] MPV 10.8 7.6 - 12.9 [facility] LAB[facility] nRBC % Auto 0.0 % [facility] nRBC Abs Auto 0.000 0.000 - 0.000 x10(3)/[facility] Blood 07/02/2023 3:58 AM EDT 07/02/2023 4:14 AM EDT Narrative Resulting Agency Comment Spec In Lab Terrence Keating MD HEMATOLOGY ORDERABLE S [facility] [place] [address] * Heparin (unfractionated) Level (07/02/2023 3:58 AM EDT) Pathologist [facility] Heparin UFH Level 0.57 IU/mL [facility] [...] Lab Ailyn Irvin MD HEMATOLOGY ORDERABLE S [facility] [place] [address] * (ABNORMAL) Basic Metabolic Panel (non-fasting) (07/02/2023 3:58 AM EDT) Glucose Lvl 96 65 - 199 mg/dL [facility] Comment:Diabetes: >=200 mg/d L plus symptoms BUN 15 8 - 18 mg/dL [facility] Creatinine 1.21(H) 0.70 - 1.20 mg/dL [facility] Sodium 133(L) 135 - 145 mmol/L [facility] questions. Chloride 104 98 - 107 mmol/L [facility] CO2 21(L) 22 - 31 mmol/L [facility] Anion Gap 8 5 - 15 mmol/L [facility] Calcium 8.8 8.5 - 10.5 mg/dL [facility] Estimated GFR 53(L) >=60 mL/min/1. 73 m?? [facility] MD CHEMISTRY ORDERABL ES Performing Organization Address [facility] Co de Phone Number [facility] [place] [address] * Phosphorus (07/02/2023 3:58 AM EDT) Phosphorus 3.8 2.5 - 4.5 mg/dL [facility] Blood 07/02/2023 3:58 AM EDT 07/02/2023 4:14 AM EDT Narrative Resulting Agency Comment Spec In Lab Eufemia Copeland MD CHEMISTRY ORDERABL ES Performing Organization Address City/[facility] Co de Phone Number [facility] [place] [address] * Magnesium (07/02/2023 3:58 AM EDT) Magnesium 0.95 0.69 - 1.07 mmol/L [facility] Blood 07/02/2023 3:58 AM EDT 07/02/2023 4:14 AM EDT Narrative Resulting Agency Comment Spec In Lab Eufemia Copeland MD CHEMISTRY ORDERABL ES [facility] [place] [address] * EKG 12 Lead (07/01/2023 12:08 PM EDT) Ventricular rate 48 BPM MUSE SYSTEM Atrial Rate 48 BPM MUSE SYSTEM P-R Interval 192 ms MUSE SYSTEM QRS Duration 92 ms MUSE SYSTEM Q-T Interval 474 ms MUSE SYSTEM QTC Calculated (Bezet) 423 ms MUSE SYSTEM Calculated P [place] 32 degrees MUSE SYSTEM Calculated R [place] 45 degrees MUSE SYSTEM Calculated T [place] 0 degrees MUSE SYSTEM INTERPRETATION Sinus bradycardia [...] Pathologist [facility] Neutrophils % 50.5 % [facility] Neutr Abs (ANC) 3.47 1.70 - 6.10 x10(3)/[facility] LAB[facility] Lymphocytes % 36.5 % [facility] Lymphocytes Abs 2.5 0.9 - 3.2 x10(3)/[facility] Monocytes % 7.7 % [facility] Monocyte Abs 0.5 0.3 - 0.9 x10(3)/[facility] Eosinophils % 4.5 % [facility] Eosinophils Abs 0.3 0.0 - 0.4 x10(3)/[facility] Basophils % 0.7 % [facility] Basophils Abs 0.0 0.0 - 0.1 x10(3)/[facility] Immature Gran % 0.10 % [facility] [...] Lab Terrence Keating MD HEMATOLOGY ORDERABLE S [facility] [place] [address] * (ABNORMAL) Hemogram (07/01/2023 2:56 AM EDT) WBC 6.9 4.0 - 9.5 x10(3)/[facility] LAB[facility] RBC 4.04 4.00 - 5.21 x10(6)/[facility] Hemoglobin 12.8 11.7 - 15.5 g/dL [facility] Hematocrit 39.0 35.7 - 45.8 % [facility] MCV 96.5(H) 82.6 - 94.4 fL [facility] MCH 31.7 27.1 - 32.0 pg [facility] MCHC 32.8 31.7 - 35.0 g/dL [facility] Platelets 224 145 - 357 x10(3)/[facility] LAB[facility] RDWSD 47.8(H) 37.0 - 46.0 [facility] RDWCV 13.3 11.5 - 14.1 % [facility] MPV 11.1 7.6 - 12.9 [facility] LAB[facility]ORY nRBC % Auto 0.0 % [facility] nRBC Abs Auto 0.000 0.000 - 0.000 x10(3)/mcL [facility] Blood 07/01/2023 2:56 AM EDT 07/01/2023 3:22 AM EDT Narrative Resulting Agency Comment Spec In Lab Terrence Keating MD HEMATOLOGY ORDERABLE S Performing Organization Address City/[facility]/ZIP Co de Phone Number [facility] [place] [address] * Heparin (unfractionated) Level (07/01/2023 2:56 AM EDT) Heparin UFH Level 0.56 IU/mL [facility] [...] MD HEMATOLOGY ORDERABLE S Performing Organization Address City/[facility]/ZIP Co de Phone Number [facility] [place] [address] * (ABNORMAL) Basic Metabolic Panel (non-fasting) (07/01/2023 2:56 AM EDT) Glucose Lvl 95 65 - 199 mg/dL [facility] Comment:Diabetes: >=200 mg/d L plus symptoms BUN 16 8 - 18 mg/dL [facility] Creatinine 1.21(H) 0.70 - 1.20 mg/dL [facility] questions. Chloride 105 98 - 107 mmol/L [facility] CO2 22 22 - 31 mmol/L [facility] Anion Gap 10 5 - 15 mmol/L [facility] Calcium 9.0 8.5 - 10.5 mg/dL [facility] Estimated GFR 53(L) >=60 mL/min/1. 73 m?? [facility] Lab Eufemia Copeland MD CHEMISTRY ORDERABL ES [facility] [place] [address] * Phosphorus (07/01/2023 2:56 AM EDT) Phosphorus 4.1 2.5 - 4.5 mg/dL [facility] Blood 07/01/2023 2:56 AM EDT 07/01/2023 3:22 AM EDT Narrative Resulting Agency Comment Spec In Lab Eufemia Copeland MD CHEMISTRY ORDERABL ES Performing Organization Address [facility]/ZIP Co de Phone Number [facility] [place] [address] * Magnesium (07/01/2023 2:56 AM EDT) Magnesium 0.95 0.69 - 1.07 mmol/L [facility] Blood 07/01/2023 2:56 AM EDT 07/01/2023 3:22 AM EDT Narrative Resulting Agency Comment Spec In Lab Eufemia Copeland MD CHEMISTRY ORDERABL ES Performing Organization Address [facility] Co de Phone Number [facility] [place] [address] * Heparin (unfractionated) Level (06/30/2023 9:24 AM EDT) Heparin UFH Level 0.62 IU/mL [facility] [...] Lab Ailyn Irvin MD HEMATOLOGY ORDERABLE S [facility] [place] [address] * Differential, Automated (06/30/2023 3:14 AM EDT) Neutrophils % 49.5 % [facility] Neutr Abs (ANC) 3.96 1.70 - 6.10 x10(3)/[facility] LABORATORY Lymphocytes % 36.6 % [facility] Lymphocytes Abs 2.9 0.9 - 3.2 x10(3)/[facility] Monocytes % 8.6 % [facility] Monocyte Abs 0.7 0.3 - 0.9 x10(3)/[facility] Eosinophils % 4.1 % [facility] Eosinophils Abs 0.3 0.0 - 0.4 x10(3)/[facility] Basophils % 0.8 % [facility] Basophils Abs 0.1 0.0 [...] Lab Terrence Keating MD HEMATOLOGY ORDERABLE S [facility] [place] [address] * Hemogram (06/30/2023 3:14 AM EDT) Pathologist [facility] WBC 8.0 4.0 - 9.5 x10(3)/[facility] LAB[facility]AT[facility] RBC 4.22 4.00 - 5.21 x10(6)/[facility] Hemoglobin 13.1 11.7 - 15.5 g/dL [facility] Hematocrit 39.5 35.7 - 45.8 % [facility] MCV 93.6 82.6 - 94.4 fL [facility] MCH 31.0 27.1 - 32.0 pg [facility] MCHC 33.2 31.7 - 35.0 g/dL [facility] Platelets 235 145 - 357 x10(3)/[facility] RDWSD 45.3 37.0 - 46.0 fL [facility] RDWCV 13.3 11.5 - 14.1 % [facility] MPV 11.0 7.6 - 12.9 [facility] LABORATORY nRBC % Auto 0.0 % [facility] nRBC Abs Auto 0.000 0.000 - 0.000 x10(3)/[facility] Blood 06/30/2023 3:14 AM EDT 06/30/2023 3:23 AM EDT Narrative Resulting Agency Comment Spec In Lab Terrence Keating MD HEMATOLOGY ORDERABLE S Performing Organization Address City/State/[facility] Co de Phone Number [facility] [place] [address] * Heparin (unfractionated) Level (06/30/2023 3:14 AM EDT) Pathologist [facility] Heparin UFH Level 0.70 IU/mL [facility] [...] Lab Terrence Keating MD HEMATOLOGY ORDERABLE S [facility] [place] [address] * (ABNORMAL) Basic Metabolic Panel (non-fasting) (06/30/2023 3:14 AM EDT) Glucose Lvl 103 65 - 199 mg/dL [facility] Comment:Diabetes: >=200 mg/d L plus symptoms BUN 18 8 - 18 mg/dL [facility] Creatinine 1.22(H) 0.70 - 1.20 mg/dL [facility] Sodium 137 135 - 145 mmol/L [facility] Potassium 3.8 3.5 - 5.0 mmol/L [facility] Comment: Please note: ??Patients with WBC >100,000 may have falsely elevated Potassium levels. ??For accurate Potassium quantification in these patients send serum separator tube (gold top) for subsequent determinations. ??Contact the Clinical Chemistry Laboratory if there are any questions. Chloride 104 98 - 107 mmol/L [facility] CO2 23 22 - 31 mmol/L [facility] Anion Gap 10 5 - 15 mmol/L [facility] Calcium 9.1 8.5 - 10.5 mg/dL [facility] Estimated GFR 53(L) >=60 mL/min/1. 73 m?? [facility] MD CHEMISTRY ORDERABL ES Performing Organization Address [facility] Co de Phone Number [facility] [place] [address] * Phosphorus (06/30/2023 3:14 AM EDT) Phosphorus 4.4 2.5 - 4.5 mg/dL [facility] Blood 06/30/2023 3:14 AM EDT 06/30/2023 3:23 AM EDT Narrative Resulting Agency Comment Spec In Lab Eufemia Copeland MD CHEMISTRY ORDERABL ES Performing Organization Address [facility] de Phone Number [facility] [place] [address] * Magnesium (06/30/2023 3:14 AM EDT) Magnesium 0.94 0.69 - 1.07 mmol/L [facility] Blood 06/30/2023 3:14 AM EDT 06/30/2023 3:23 AM EDT Narrative Resulting Agency Comment Spec In Lab Eufemia Copeland MD CHEMISTRY ORDERABL ES Performing Organization Address [facility] Co de Phone Number [facility] [place] [address] * Heparin (unfractionated) Level (06/29/2023 8:47 PM EDT) [facility] Heparin UFH Level 0.75 IU/mL [facility] [...] Lab Terrence Keating MD HEMATOLOGY ORDERABLE S [facility] [place] [address] * EKG 12 Lead (06/29/2023 12:55 PM EDT) [facility] Ventricular rate 53 BPM MUSE SYSTEM Atrial Rate 53 BPM MUSE SYSTEM P-R Interval 196 ms MUSE SYSTEM QRS Duration 90 ms MUSE SYSTEM Q-T Interval 564 ms MUSE SYSTEM QTC Calculated (Bezet) 529 ms MUSE SYSTEM Calculated P [place] 30 degrees MUSE SYSTEM Calculated R [place] 53 degrees MUSE SYSTEM Calculated T [place] 5 degrees MUSE SYSTEM INTERPRETATION Sinus bradycardia Marked ST abnormality, possible inferior subendocardial injury Prolonged QT Abnormal ECG When compared with ECG of 26-JUN-2023 06:04, Nonspecific T wave abnormality no longer evident in Anterolateral leads QT has lengthened Confirmed by MD Angelo Danette ([id number]) on 06/29/2023 8:34:43 PM MUSE SYSTEM 06/29/2023 12:5 5 PM EDT 06/29/2023 8:34 PM EDT Terrence Keating MD ECG ORDERABLES MUSE SYSTEM * (ABNORMAL) Heparin (unfractionated) Level (06/29/2023 11:34 AM EDT) [facility] Heparin UFH Level 1.41(Crit ical) IU/mL [facility] Comment: Critical Result [...] MD HEMATOLOGY ORDERABLE S Performing Organization Address City/[facility]/ZIP Co de Phone Number [facility] [place] [address] * Differential, Automated (06/29/2023 2:39 AM EDT) [facility] Neutrophils % 53.8 % [facility] Neutr Abs (ANC) 4.46 1.70 - 6.10 x10(3)/[facility] Lymphocytes % 33.5 % [facility] Lymphocytes Abs 2.8 0.9 - 3.2 x10(3)/[facility]ORATORY Monocytes % 8.3 % [facility] Monocyte Abs 0.7 0.3 - 0.9 x10(3)/[facility]OR[facility] Eosinophils % 3.5 % [facility] Eosinophils Abs 0.3 0.0 - 0.4 x10(3)/[facility] Basophils % 0.5 % [facility] Basophils Abs 0.0 0.0 - 0.1 x10(3)/[facility] [...] Lab Terrence Keating MD HEMATOLOGY ORDERABLE S [facility] [place] [address] * Hemogram (06/29/2023 2:39 AM EDT) WBC 8.3 4.0 - 9.5 x10(3)/[facility] LABORATORY RBC 4.19 4.00 - 5.21 x10(6)/[facility] Hemoglobin 13.2 11.7 - 15.5 g/dL [facility] Hematocrit 38.9 35.7 - 45.8 % [facility] MCV 92.8 82.6 - 94.4 fL [facility] MCH 31.5 27.1 - 32.0 pg [facility] MCHC 33.9 31.7 - 35.0 g/dL [facility] Platelets 237 145 - 357 x10(3)/[facility] RDWSD 45.3 37.0 - 46.0 fL [facility] RDWCV 13.3 11.5 - 14.1 % [facility] MPV 11.4 7.6 - 12.9 [facility] LABORATORY nRBC % Auto 0.0 % [facility] nRBC Abs Auto 0.000 0.000 - 0.000 x10(3)/mcL [facility] Blood 06/29/2023 2:39 AM EDT 06/29/2023 3:33 AM EDT Narrative Resulting Agency Comment Spec In Lab Terrence Keating MD HEMATOLOGY ORDERABLE S [facility] [place] [address] * (ABNORMAL) Heparin (unfractionated) Level (06/29/2023 2:39 AM EDT) Heparin UFH Level 1.77(Crit ical) IU/mL [facility] [...] Lab Ailyn Irvin MD HEMATOLOGY ORDERABLE S [facility] [place] [address] * (ABNORMAL) Basic Metabolic Panel (non-fasting) (06/29/2023 2:39 AM EDT) Glucose Lvl 100 65 - 199 mg/dL [facility] Comment:Diabetes: >=200 mg/d L plus symptoms BUN 21(H) 8 - 18 mg/dL [facility] Creatinine 1.17 0.70 - 1.20 mg/dL [facility] Sodium 138 135 - 145 mmol/L [facility] Potassium 3.9 3.5 - 5.0 mmol/L [facility] Comment: Please note: ??Patients with WBC >100,000 may have falsely elevated Potassium levels. ??For accurate Potassium quantification in these patients send serum separator tube (gold top) for subsequent determinations. ??Contact the Clinical Chemistry Laboratory if there are any questions. Chloride 105 98 - 107 mmol/L [facility] CO2 22 22 - 31 mmol/L [facility] Anion Gap 11 5 - 15 mmol/L [facility] Calcium 9.1 8.5 - 10.5 mg/dL [facility] Estimated GFR 55(L) >=60 mL/min/1. 73 m?? [facility] MD CHEMISTRY ORDERABL ES Performing Organization Address [facility] Co de Phone Number [facility] [place] [address] * Phosphorus (06/29/2023 2:39 AM EDT) Phosphorus 4.0 2.5 - 4.5 mg/dL [facility] Blood 06/29/2023 2:39 AM EDT 06/29/2023 3:33 AM EDT Narrative Resulting Agency Comment Spec In Lab Eufemia Copeland MD CHEMISTRY ORDERABL ES Performing Organization Address [facility] de Phone Number [facility] [place] [address] * Magnesium (06/29/2023 2:39 AM EDT) Magnesium 0.92 0.69 - 1.07 mmol/L [facility] Blood 06/29/2023 2:39 AM EDT 06/29/2023 3:33 AM EDT Narrative Resulting Agency Comment Spec In Lab Eufemia Copeland MD CHEMISTRY ORDERABL ES Performing Organization Address [facility] de Phone Number [facility] [place] [address] * US Abdomen Limited (06/28/2023 12:22 PM EDT) WORKSTATION ID [id number] [facility] Anatomical Region Laterality Modality Abdomen [...] questions, please contact the health home care administrator that requested your imaging first. ?Sigrid Owens, [facility] Metal Storage Worker Electronically Signed Final Report ?? 06/28/2023 02:08 pm Narrative 06/28/2023 2:08 PM EDT Abdominal ? (Signed Final 06/28/2023 02:08 pm) PATIENT INFO: ID #: ? [id number] ?: ??[birth year] (53 yrs)(F) Name: ? LOIDA ?Visit Date: 06/28/2023 12:20 pm ? ROHAN PERFORMED BY: Attending: ?Sigrid Owens MD Resident: ? Karo JOHN, Rafaela Performed By: ? Rick STANFORD, ??Deena Referred By: ?AILYN IRVIN Location: ? [place] SERVICE(S) PROVIDED: UABDLIM - Abdominal Limited Survey Single ? [id number] Organ or Quadrant - [id number] INDICATIONS: RUQ pain, R/o Gall bladder colic, [...] 06/28/2023 02:08 pm) PATIENT INFO: ID #: [id number] : [birth year] (53 yrs)(F) Name: LOIDA Visit Date: 06/28/2023 12:20 pm ROHAN PERFORMED BY: Attending: Sigrid Owens MD Resident: Rafaela Huddleston MD Performed By: Deena Cabrera RDMS Referred By: AILYN IRVIN Location: [place] SERVICE(S) PROVIDED: UABDLIM - Abdominal Limited Survey Single [id number] Organ or Quadrant - [id number] INDICATIONS: RUQ pain, R/o Gall bladder colic, [...] questions, please contact the health home care administrator that requested your imaging first. Sigrid Owens, E [employer] Worker Electronically Signed Final Report 06/28/2023 02:08 pm Ailyn Irvin MD IMG US GEN ORDERABLE S * Duplex Study Visceral Arteries, Comp (06/28/2023 10:19 AM EDT) VB Text Report Department: Vascular Surgery Lab Patient: [id number] (LOIDA ROQUE) CPT: [id number] Referring Physician: HEIDY SULLIVAN ?? Indications: abdominal pain, ? patency/stenosi s Findings: Unilateral ? Waveform ? PSV cm/s ??EDV cm/s ??Patent ?? Dary Visceral Aorta ? 80 ?16 ? Celiac Artery, Proximal ??Andrews-Biphasic ? 119 ?26 ? Celiac Artery, Mid ? Andrews-Biphasic ? 115 ?21 ? Celiac Artery, Distal ? No Vis ?? Sup Mes Artery Proximal ??Biphasic ?427 ?91 ? Sup Mes Artery Middle ?Andrews-Biphasic ? 100 ?17 ? Sup Mes Artery Distal ?Andrews-Biphasic ?64 ?15 ? Hepatic Artery ?No [facility] Lymphocytes % 30.6 % [facility] Lymphocytes Abs 2.5 0.9 - 3.2 x10(3)/[facility] LABORATORY Monocytes % 8.8 % [facility] Monocyte Abs 0.7 0.3 - 0.9 x10(3)/[facility] LABORATORY Eosinophils % 4.6 % [facility] Eosinophils Abs 0.4 0.0 - 0.4 x10(3)/[facility] LAB[facility] Basophils % 0.5 % [facility] Basophils Abs [...] Lab Terrence Keating MD HEMATOLOGY ORDERABLE S [facility] [place] [address] * Hemogram (06/28/2023 1:52 AM EDT) WBC 8.1 4.0 - 9.5 x10(3)/[facility] LABORATORY RBC 4.30 4.00 - 5.21 x10(6)/[facility] Hemoglobin 13.4 11.7 - 15.5 g/dL [facility] Hematocrit 40.6 35.7 - 45.8 % [facility] MCV 94.4 82.6 - 94.4 [facility] LABORATORY MCH 31.2 27.1 - 32.0 pg [facility] MCHC 33.0 31.7 - 35.0 g/dL [facility] Platelets 238 145 - 357 x10(3)/[facility] LABORATORY RDWSD 45.7 37.0 - 46.0 [facility] LABORATORY RDWCV 13.2 11.5 - 14.1 % [facility] MPV 10.8 7.6 - 12.9 [facility] LABORATORY nRBC % Auto 0.0 % [facility] nRBC Abs Auto 0.000 0.000 - 0.000 x10(3)/[facility] Blood 06/28/2023 1:52 AM EDT 06/28/2023 2:05 AM EDT Narrative Resulting Agency Comment Spec In Lab Terrence Keating MD HEMATOLOGY ORDERABLE S [facility] [place] [address] * (ABNORMAL) Basic Metabolic Panel (non-fasting) (06/28/2023 1:52 AM EDT) Glucose Lvl 101 65 - 199 mg/dL [facility] Comment:Diabetes: >=200 mg/d L plus symptoms BUN 24(H) 8 - 18 mg/dL [facility] Creatinine 1.21(H) 0.70 - 1.20 mg/dL [facility] Sodium 138 135 - 145 mmol/L [facility] questions. Chloride 105 98 - 107 mmol/L [facility] CO2 21(L) 22 - 31 mmol/L [facility] Anion Gap 12 5 - 15 mmol/L [facility] Calcium 9.0 8.5 - 10.5 mg/dL [facility] Estimated GFR 53(L) >=60 mL/min/1. 73 m?? [facility] MD CHEMISTRY ORDERABL ES Performing Organization Address City/[facility] Co de Phone Number [facility] [place] [address] * Phosphorus (06/28/2023 1:52 AM EDT) Phosphorus 4.5 2.5 - 4.5 mg/dL [facility] Blood 06/28/2023 1:52 AM EDT 06/28/2023 2:05 AM EDT Narrative Resulting Agency Comment Spec In Lab Eufemia Copeland MD CHEMISTRY ORDERABL ES [facility] [place] [address] * Magnesium (06/28/2023 1:52 AM EDT) Magnesium 0.93 0.69 - 1.07 mmol/L [facility] Blood 06/28/2023 1:52 AM EDT 06/28/2023 2:05 AM EDT Narrative Resulting Agency Comment Spec In Lab Eufemia Copeland MD CHEMISTRY ORDERABL ES Performing Organization Address [facility]/ZIP Co de Phone Number [facility] [place] [address] * (ABNORMAL) Basic Metabolic Panel (non-fasting) (06/27/2023 8:06 PM EDT) Pathologist [facility] Glucose Lvl 94 65 - 199 mg/dL [facility] Comment:Diabetes: >=200 mg/d L plus symptoms BUN 24(H) 8 - 18 mg/dL [facility] Creatinine 1.28(H) 0.70 - 1.20 mg/dL [facility] Sodium 141 135 - 145 mmol/L [facility] Potassium 4.3 3.5 - 5.0 mmol/L [facility] Comment: Please note: ??Patients with WBC >100,000 may have falsely elevated Potassium levels. ??For accurate Potassium quantification in these patients send serum separator tube (gold top) for subsequent determinations. ??Contact the Clinical Chemistry Laboratory if there are any questions. Chloride 106 98 - 107 mmol/L [facility] CO2 24 22 - 31 mmol/L [facility] Anion Gap 11 5 - 15 mmol/L [facility] Calcium 9.3 8.5 - 10.5 mg/dL [facility] Estimated GFR 50(L) >=60 mL/min/1. 73 m?? [facility] Irvin MD CHEMISTRY ORDERABLES Performing Organization Address [facility]/ZIP Co de Phone Number [facility] [place] [address] * (ABNORMAL) Hepatic Function Panel (06/27/2023 4:34 AM EDT) Total Protein 6.4 6.1 - 8.0 g/dL [facility] Albumin 3.8 3.2 - 5.2 g/dL [facility] AST 21 0 - 30 unit/L [facility] ALT 22 0 - 30 unit/L [facility] Alk Phos 56 35 - 105 unit/L [facility] Total Bilirubin <0.2(L) 0.2 - 1.3 mg/dL [facility] Bili, Direct <0.1 0.0 - 0.3 mg/dL [facility] Blood Venous Draw / Unknown 06/27/2023 4:34 AM EDT 06/27/2023 4:53 AM EDT Narrative Resulting Agency Comment Spec In Lab Ailyn Irvin MD CHEMISTRY ORDERABLES Performing Organization Address City/[facility]/ZIP Co de Phone Number [facility] [place] [address] * Differential, Automated (06/27/2023 4:34 AM EDT) Neutrophils % 52.7 % [facility] Neutr Abs (ANC) 4.01 1.70 - 6.10 x10(3)/[facility] LABORATORY Lymphocytes % 33.8 % [facility] Lymphocytes Abs 2.6 0.9 - 3.2 x10(3)/[facility] LABORATORY Monocytes % 8.8 % [facility] Monocyte Abs 0.7 0.3 - 0.9 x10(3)/[facility] LABORATORY Eosinophils % 3.8 % [facility] Eosinophils Abs 0.3 0.0 - 0.4 x10(3)/[facility] LABORATORY Basophils % 0.5 % [facility] Basophils Abs [...] Lab Terrence Keating MD HEMATOLOGY ORDERABLE S [facility] [place] [address] * Hemogram (06/27/2023 4:34 AM EDT) WBC 7.6 4.0 - 9.5 x10(3)/[facility] LABORATORY RBC 4.15 4.00 - 5.21 x10(6)/[facility] Hemoglobin 12.9 11.7 - 15.5 g/dL [facility] Hematocrit 39.0 35.7 - 45.8 % [facility] MCV 94.0 82.6 - 94.4 [facility] LABORATORY MCH 31.1 27.1 - 32.0 pg [facility] MCHC 33.1 31.7 - 35.0 g/dL [facility] Platelets 245 145 - 357 x10(3)/[facility] LABORATORY RDWSD 45.2 37.0 - 46.0 [facility] RDWCV 13.2 11.5 - 14.1 % [facility] MPV 11.2 7.6 - 12.9 [facility] LABORATORY nRBC % Auto 0.0 % [facility] nRBC Abs Auto 0.000 0.000 - 0.000 x10(3)/[facility]ORAT[facility] Blood 06/27/2023 4:34 AM EDT 06/27/2023 4:51 AM EDT Narrative Resulting Agency Comment Spec In Lab Terrence Keating MD HEMATOLOGY ORDERABLE S [facility] [place] [address] * (ABNORMAL) Basic Metabolic Panel (non-fasting) (06/27/2023 4:34 AM EDT) Glucose Lvl 99 65 - 199 mg/dL [facility] Comment:Diabetes: >=200 mg/d L plus symptoms BUN 26(H) 8 - 18 mg/dL [facility] Creatinine 1.22(H) 0.70 - 1.20 mg/dL [facility] Sodium 138 135 - 145 mmol/L [facility] Potassium 3.9 3.5 - 5.0 mmol/L [facility] Comment: Please note: ??Patients with WBC >100,000 may have falsely elevated Potassium levels. ??For accurate Potassium quantification in these patients send serum separator tube (gold top) for subsequent determinations. ??Contact the Clinical Chemistry Laboratory if there are any questions. Chloride 105 98 - 107 mmol/L [facility] CO2 22 22 - 31 mmol/L [facility] Anion Gap 11 5 - 15 mmol/L [facility] Calcium 9.1 8.5 - 10.5 mg/dL [facility] Estimated GFR 53(L) >=60 mL/min/1. 73 m?? [facility] MD CHEMISTRY ORDERABL ES Performing Organization Address [facility]/ZIP Co de Phone Number [facility] [place] [address] * (ABNORMAL) Phosphorus (06/27/2023 4:34 AM EDT) Phosphorus 4.7(H) 2.5 - 4.5 mg/dL [facility] Blood 06/27/2023 4:34 AM EDT 06/27/2023 4:51 AM EDT Narrative Resulting Agency Comment Spec In Lab Eufemia Copeland MD CHEMISTRY ORDERABL ES Performing Organization Address City/[facility]/ZIP Co de Phone Number [facility] [place] [address] * Magnesium (06/27/2023 4:34 AM EDT) Magnesium 0.90 0.69 - 1.07 mmol/L [facility] Blood 06/27/2023 4:34 AM EDT 06/27/2023 4:51 AM EDT Narrative Resulting Agency Comment Spec In Lab Eufemia Copeland MD CHEMISTRY ORDERABL ES [facility] [place] [address] * (ABNORMAL) Basic Metabolic Panel (non-fasting) (06/26/2023 4:58 PM EDT) Glucose Lvl 106 65 - 199 mg/dL [facility] Comment:Diabetes: >=200 mg/d L plus symptoms BUN 24(H) 8 - 18 mg/dL [facility] Creatinine 1.23(H) 0.70 - 1.20 mg/dL [facility] Sodium 138 135 - 145 mmol/L [facility] Potassium 4.2 3.5 - 5.0 mmol/L [facility] Comment: Please note: ??Patients with WBC >100,000 may have falsely elevated Potassium levels. ??For accurate Potassium quantification in these patients send serum separator tube (gold top) for subsequent determinations. ??Contact the Clinical Chemistry Laboratory if there are any questions. Chloride 104 98 - 107 mmol/L [facility] CO2 21(L) 22 - 31 mmol/L [facility] Anion Gap 13 5 - 15 mmol/L [facility] Calcium 9.1 8.5 - 10.5 mg/dL [facility] Estimated GFR 52(L) >=60 mL/min/1. 73 m?? [facility] Irvin MD CHEMISTRY ORDERABLES Performing Organization Address City/[facility]/ZIP Co de Phone Number [facility] [place] [address] * Urinalysis Microscopic Exam (06/26/2023 11:09 AM EDT) RBC UA 0 0 - 4 /HPF [facility] WBC UA 3 0 - 5 /HPF [facility] Squam Epith UA 1 <=4 /HPF [facility] Hyaline Cast UA 1 0 - 2 /LPF [facility] Clean Catch Urine 06/26/2023 11:09 AM EDT 06/26/2023 5:45 PM EDT Narrative Resulting Agency Comment Spec In Lab Ailyn Irvin MD URINE ORDERABLES Performing Organization Address City/[facility]/ZIP Co de Phone Number [facility] [place] [address] * (ABNORMAL) Urinalysis with reflex Culture (06/26/2023 11:09 AM EDT) Glucose UA Negative Negative mg/dL [facility] Protein UA Negative Negative mg/dL [facility] Bilirubin UA Negative Negative mg/dL [facility] Comment: Clinical correlation required for positive Urine Bilirubin results as false positive may occur with some drugs and drug related products. If a false positive is suspected a serum total bilirubin should be considered if clinically indicated. Urobilinogen UA Normal Normal mg/dL Marina TRAN [facility] pH UA 6.0 5.0 - 8.0 [facility] Blood UA Negative Negative mg/dL [facility] Ketones UA Negative Negative mg/dL [facility] Nitrite UA Negative Negative [facility] Leukocytes UA Trace(A) Negative mcL [facility] Appearance UA Clear Clear [facility] Spec [place] UA 1.013 1.005 - 1.030 [facility] Color UA Yellow Yellow [facility] Culture Reflexed No [facility] Clean Catch Urine 06/26/2023 11:09 AM EDT 06/26/2023 5:45 PM EDT Narrative Resulting Agency Comment Spec In Lab Ailyn Irvin MD URINE ORDERABLES Performing Organization Address [facility] Co de Phone Number [facility] [place] [address] * EKG 12 Lead (06/26/2023 6:04 AM EDT) Ventricular rate 46 BPM MUSE SYSTEM Atrial Rate 46 BPM MUSE SYSTEM P-R Interval 204 ms MUSE SYSTEM QRS Duration 90 ms MUSE SYSTEM Q-T Interval 466 ms MUSE SYSTEM QTC Calculated (Bezet) 407 ms MUSE SYSTEM Calculated P [place] 38 degrees MUSE SYSTEM Calculated R [place] 48 degrees MUSE SYSTEM Calculated T [place] 13 degrees MUSE SYSTEM INTERPRETATION Sinus bradycardia Nonspecific ST and T wave abnormality Abnormal ECG When compared with ECG of 23-JUN-2023 09:54, No significant change was found Confirmed by MD Daila, Willy Huerta ([id number]) on 06/29/2023 6:09:20 AM MUSE SYSTEM 06/26/2023 6:04 AM EDT 06/29/2023 6:09 AM EDT Eufemia Copeland MD ECG ORDERABLES Performing Organization Address City/[facility]/ZIP Co de Phone Number MUSE SYSTEM * Differential, Automated (06/26/2023 4:06 AM EDT) Neutrophils % 55.3 % [facility] Neutr Abs (ANC) 4.63 1.70 - 6.10 x10(3)/[facility] LABORAT[facility] Lymphocytes % 32.6 % [facility] Lymphocytes Abs 2.7 0.9 - 3.2 x10(3)/[facility] LABORATORY Monocytes % 8.2 % [facility] Monocyte Abs 0.7 0.3 - 0.9 x10(3)/[facility] LAB[facility]ORY Eosinophils % 3.2 % [facility] Eosinophils Abs 0.3 0.0 - 0.4 x10(3)/[facility] LAB[facility] Basophils % 0.5 % [facility] Basophils Abs [...] Lab Terrence Keating MD HEMATOLOGY ORDERABLE S [facility] [place] [address] * (ABNORMAL) Hemogram (06/26/2023 4:06 AM EDT) WBC 8.4 4.0 - 9.5 x10(3)/[facility] RBC 4.52 4.00 - 5.21 x10(6)/[facility] Hemoglobin 14.0 11.7 - 15.5 g/dL [facility] Hematocrit 43.6 35.7 - 45.8 % [facility] MCV 96.5(H) 82.6 - 94.4 [facility] LAB[facility] MCH 31.0 27.1 - 32.0 pg [facility] MCHC 32.1 31.7 - 35.0 g/dL [facility] Platelets 258 145 - 357 x10(3)/[facility] LABORATORY RDWSD 46.7(H) 37.0 - 46.0 [facility] RDWCV 13.2 11.5 - 14.1 % [facility] MPV 11.1 7.6 - 12.9 [facility] LABORATORY nRBC % Auto 0.0 % [facility] nRBC Abs Auto 0.000 0.000 - 0.000 x10(3)/[facility] LABORATORY Blood 06/26/2023 4:06 AM EDT 06/26/2023 4:18 AM EDT Narrative Resulting Agency Comment Spec In Lab Terrence Keating MD HEMATOLOGY ORDERABLE S [facility] [place] [address] * (ABNORMAL) Basic Metabolic Panel (non-fasting) (06/26/2023 4:06 AM EDT) Glucose Lvl 100 65 - 199 mg/dL [facility] LABORATORY Comment:Diabetes: >=200 mg/d L plus symptoms BUN 25(H) 8 - 18 mg/dL [facility] Creatinine 1.24(H) 0.70 - 1.20 mg/dL [facility] Sodium 135 135 - 145 mmol/L [facility] Potassium 4.2 3.5 - 5.0 mmol/L [facility]ORY Comment: Please note: ??Patients with WBC >100,000 may have falsely elevated Potassium levels. ??For accurate Potassium quantification in these patients send serum separator tube (gold top) for subsequent determinations. ??Contact the Clinical Chemistry Laboratory if there are any questions. Chloride 104 98 - 107 mmol/L [facility] LABORATORY CO2 19(L) 22 - 31 mmol/L [facility] Anion Gap 12 5 - 15 mmol/L [facility] Calcium 9.6 8.5 - 10.5 mg/dL [facility]ORY Estimated GFR 52(L) >=60 mL/min/1. 73 m?? [facility] MD CHEMISTRY ORDERABL ES Performing Organization Address City/[facility]/ZIP Co de Phone Number [facility] [place] [address] * Phosphorus (06/26/2023 4:06 AM EDT) Phosphorus 4.3 2.5 - 4.5 mg/dL [facility] LABORATORY Blood 06/26/2023 4:06 AM EDT 06/26/2023 4:18 AM EDT Narrative Resulting Agency Comment Spec In Lab Eufemia Copeland MD CHEMISTRY ORDERABL ES Performing Organization Address City/[facility]/ZIP Co de Phone Number [facility] [place] [address] * Magnesium (06/26/2023 4:06 AM EDT) Magnesium 0.96 0.69 - 1.07 mmol/L [facility] LABORATORY Blood 06/26/2023 4:06 AM EDT 06/26/2023 4:18 AM EDT Narrative Resulting Agency Comment Spec In Lab Eufemia Copeland MD CHEMISTRY ORDERABL ES [facility] [place] [address] * Differential, Automated (06/25/2023 1:50 AM EDT) Pathologist [facility] Neutrophils % 56.2 % [facility] LABORATORY Neutr Abs (ANC) 4.06 1.70 - 6.10 x10(3)/[facility] LABORATORY Lymphocytes % 30.5 % [facility] LABORATORY Lymphocytes Abs 2.2 0.9 - 3.2 x10(3)/[facility] LABORATORY Monocytes % 8.7 % [facility] LABORATORY Monocyte Abs 0.6 0.3 - 0.9 x10(3)/[facility] LABORATORY Eosinophils % 3.9 % [facility] LABORATORY Eosinophils Abs 0.3 0.0 - 0.4 x10(3)/[facility] LABORATORY Basophils % 0.6 % [facility] LABORATORY Basophils Abs 0.0 0.0 - 0.1 x10(3)/[facility] LABORATORY Immature Gran % 0.10 % [facility] LABORATORY [...] Lab Terrence Keating MD HEMATOLOGY ORDERABLE S [facility] [place] [address] * Hemogram (06/25/2023 1:50 AM EDT) WBC 7.2 4.0 - 9.5 x10(3)/[facility] LABORATORY RBC 4.57 4.00 - 5.21 x10(6)/[facility] LABORATORY Hemoglobin 14.4 11.7 - 15.5 g/dL [facility] LABORATORY Hematocrit 42.9 35.7 - 45.8 % [facility]ORATORY MCV 93.9 82.6 - 94.4 [facility] LABORATORY MCH 31.5 27.1 - 32.0 pg [facility]ATORY MCHC 33.6 31.7 - 35.0 g/dL [facility] LABORATORY Platelets 241 145 - 357 x10(3)/[facility] LABORATORY RDWSD 44.7 37.0 - 46.0 [facility] LABORATORY RDWCV 13.2 11.5 - 14.1 % [facility] LABORATORY MPV 11.5 7.6 - 12.9 [facility] LABORATORY nRBC % Auto 0.0 % [facility] LABORATORY nRBC Abs Auto 0.000 0.000 - 0.000 x10(3)/[facility] LABORATORY Blood 06/25/2023 1:50 AM EDT 06/25/2023 2:16 AM EDT Narrative Resulting Agency Comment Spec In Lab Terrence Keating MD HEMATOLOGY ORDERABLE S [facility] [place] [address] * (ABNORMAL) Basic Metabolic Panel (non-fasting) (06/25/2023 1:50 AM EDT) Glucose Lvl 99 65 - 199 mg/dL [facility] LABORATORY Comment:Diabetes: >=200 mg/d L plus symptoms BUN 20(H) 8 - 18 mg/dL [facility]ORY Creatinine 1.59(H) 0.70 - 1.20 mg/dL [facility]ORATORY Sodium 139 135 - 145 mmol/L [facility] LAB[facility]ATORY Potassium 3.4(L) 3.5 - 5.0 mmol/L [facility] LABORATORY Comment: Please note: ??Patients with WBC >100,000 may have falsely elevated Potassium levels. ??For accurate Potassium quantification in these patients send serum separator tube (gold top) for subsequent determinations. ??Contact the Clinical Chemistry Laboratory if there are any questions. Chloride 102 98 - 107 mmol/L [facility] LABORATORY CO2 25 22 - 31 mmol/L [facility] Anion Gap 12 5 - 15 mmol/L [facility]ATORY Calcium 9.4 8.5 - 10.5 mg/dL [facility] LABORATORY Estimated GFR 38(L) >=60 mL/min/1. 73 m?? [facility] Lab Eufemia Copeland MD CHEMISTRY ORDERABL ES [facility] [place] [address] * Phosphorus (06/25/2023 1:50 AM EDT) Phosphorus 4.4 2.5 - 4.5 mg/dL [facility] LABORATORY Blood 06/25/2023 1:50 AM EDT 06/25/2023 2:16 AM EDT Narrative Resulting Agency Comment Spec In Lab Eufemia Copeland MD CHEMISTRY ORDERABL ES Performing Organization Address [facility]/ZIP Co de Phone Number [facility] [place] [address] * Magnesium (06/25/2023 1:50 AM EDT) Magnesium 0.99 0.69 - 1.07 mmol/L [facility] LABORATORY Blood 06/25/2023 1:50 AM EDT 06/25/2023 2:16 AM EDT Narrative Resulting Agency Comment Spec In Lab Eufemia Copeland MD CHEMISTRY ORDERABL ES Performing Organization Address [facility]/ZIP Co de Phone Number [facility] [place] [address] * (ABNORMAL) pro-Brain Natriuretic Peptide (06/24/2023 3:38 AM EDT) ProBNP 1,239(H) <=124 pg/mL [facility] LABORATORY Blood Venous Draw / Unknown 06/24/2023 3:38 AM EDT 06/24/2023 3:49 AM EDT Narrative Resulting Agency Comment Spec In Lab Ailyn Irvin MD CHEMISTRY ORDERABLES Performing Organization Address [facility]/ZIP Co de Phone Number [facility] [place] [address] * Differential, Automated (06/24/2023 3:38 AM EDT) Neutrophils % 51.6 % [facility] LABORATORY Neutr Abs (ANC) 3.54 1.70 - 6.10 x10(3)/[facility] LABORATORY Lymphocytes % 36.0 % [facility] LABORATORY Lymphocytes Abs 2.5 0.9 - 3.2 x10(3)/[facility] LABORATORY Monocytes % 7.8 % [facility] LABORATORY Monocyte Abs 0.5 0.3 - 0.9 x10(3)/[facility] LABORATORY Eosinophils % 3.6 % [facility] LABORATORY Eosinophils Abs 0.2 0.0 - 0.4 x10(3)/[facility] LABORATORY Basophils % 0.7 % [facility] LABORATORY Basophils Abs 0.0 0.0 - 0.1 x10(3)/[facility] LABORATORY Immature Gran % 0.30 % [facility] LABORATORY [...] Lab Terrence Keating MD HEMATOLOGY ORDERABLE S [facility] [place] [address] * Hemogram (06/24/2023 3:38 AM EDT) WBC 6.9 4.0 - 9.5 x10(3)/[facility] LABORATORY RBC 4.36 4.00 - 5.21 x10(6)/[facility] LABORATORY Hemoglobin 13.6 11.7 - 15.5 g/dL [facility] LABORATORY Hematocrit 40.7 35.7 - 45.8 % [facility] MCV 93.3 82.6 - 94.4 fL [facility] MCH 31.2 27.1 - 32.0 pg [facility] MCHC 33.4 31.7 - 35.0 g/dL [facility] LABORATORY Platelets 220 145 - 357 x10(3)/[facility] LABORATORY RDWSD 44.5 37.0 - 46.0 fL [facility] LABORATORY RDWCV 13.0 11.5 - 14.1 % [facility] LABORATORY MPV 10.8 7.6 - 12.9 [facility] LABORATORY nRBC % Auto 0.0 % [facility] LABORATORY nRBC Abs Auto 0.000 0.000 - 0.000 x10(3)/[facility] LABORATORY Blood 06/24/2023 3:38 AM EDT 06/24/2023 3:49 AM EDT Narrative Resulting Agency Comment Spec In Lab Terrence Keating MD HEMATOLOGY ORDERABLE S [facility] [place] [address] * Heparin (unfractionated) Level (06/24/2023 3:38 AM EDT) Heparin UFH Level 0.44 IU/mL [facility] LABORATORY [...] Lab Terrence Keating MD HEMATOLOGY ORDERABLE S [facility] [place] [address] * (ABNORMAL) Basic Metabolic Panel (non-fasting) (06/24/2023 3:38 AM EDT) Glucose Lvl 96 65 - 199 mg/dL [facility] LABORATORY Comment:Diabetes: >=200 mg/d L plus symptoms BUN 20(H) 8 - 18 mg/dL [facility]ATORY Creatinine 1.14 0.70 - 1.20 mg/dL [facility] Sodium 138 135 - 145 mmol/L [facility] Potassium 4.2 3.5 - 5.0 mmol/L [facility] LABORATORY Comment: Please note: ??Patients with WBC >100,000 may have falsely elevated Potassium levels. ??For accurate Potassium quantification in these patients send serum separator tube (gold top) for subsequent determinations. ??Contact the Clinical Chemistry Laboratory if there are any questions. Chloride 104 98 - 107 mmol/L [facility]ORATORY CO2 21(L) 22 - 31 mmol/L [facility] Anion Gap 13 5 - 15 mmol/L [facility]ORY Calcium 9.1 8.5 - 10.5 mg/dL [facility] LABORATORY Estimated GFR 57(L) >=60 mL/min/1. 73 m?? [facility] MD CHEMISTRY ORDERABL ES Performing Organization Address [facility] Co de Phone Number [facility] [place] [address] * Phosphorus (06/24/2023 3:38 AM EDT) Phosphorus 4.1 2.5 - 4.5 mg/dL [facility] LABORATORY Blood 06/24/2023 3:38 AM EDT 06/24/2023 3:49 AM EDT Narrative Resulting Agency Comment Spec In Lab Eufemia Copeland MD CHEMISTRY ORDERABL ES Performing Organization Address [facility] Co de Phone Number [facility] [place] [address] * Magnesium (06/24/2023 3:38 AM EDT) Magnesium 0.96 0.69 - 1.07 mmol/L [facility] LABORATORY Blood 06/24/2023 3:38 AM EDT 06/24/2023 3:49 AM EDT Narrative Resulting Agency Comment Spec In Lab Eufemia Copeland MD CHEMISTRY ORDERABL ES Performing Organization Address [facility] Co de Phone Number [facility] [place] [address] * Heparin (unfractionated) Level (06/23/2023 9:24 PM EDT) Heparin UFH Level 0.51 IU/mL [facility] LABORATORY [...] MD HEMATOLOGY ORDERABLE S Performing Organization Address City/State/[facility] Co de Phone Number [facility] LABORATORY [place] [phone] * Duplex Study Visceral Arteries, Comp (06/23/2023 3:36 PM EDT) VB Text Report Department: Vascular Surgery Lab Patient: [id number] (LOIDA ROQUE) CPT: [id number] Referring Physician: AILYN IRVIN ?? Phone: Indications: [...] PM EDT) Heparin UFH Level 0.90 IU/mL [facility] LABORATORY [...] MD HEMATOLOGY ORDERABLE S Performing Organization Address City/[facility] Co de Phone Number [facility] [place] [address] * EKG 12 Lead (06/23/2023 9:54 AM EDT) Ventricular rate 48 BPM MUSE SYSTEM Atrial Rate 48 BPM MUSE SYSTEM P-R Interval 192 ms MUSE SYSTEM QRS Duration 92 ms MUSE SYSTEM Q-T Interval 462 ms MUSE SYSTEM QTC Calculated (Bezet) 412 ms MUSE SYSTEM Calculated P [place] 21 degrees MUSE SYSTEM Calculated R [place] 20 degrees MUSE SYSTEM Calculated T [place] 16 degrees MUSE SYSTEM INTERPRETATION Sinus bradycardia Nonspecific ST and T wave abnormality Abnormal ECG When compared with ECG of 22-JUN-2023 11:13, Criteria for Septal infarct are no longer Present No significant change was found Confirmed by MD [place], Gus ([id number]) on 06/23/2023 12:59:50 PM MUSE SYSTEM 06/23/2023 9:54 AM EDT 06/23/2023 12:59 PM EDT Ailyn Irvin MD ECG ORDERABLES Performing Organization Address [facility] Co de Phone Number MUSE SYSTEM * Differential, Automated (06/23/2023 4:12 AM EDT) Neutrophils % 52.8 % [facility] LABORATORY Neutr Abs (ANC) 4.30 1.70 - 6.10 x10(3)/[facility] LABORATORY Lymphocytes % 33.9 % [facility] LABORATORY Lymphocytes Abs 2.8 0.9 - 3.2 x10(3)/[facility] LABORATORY Monocytes % 8.3 % [facility] LABORATORY Monocyte Abs 0.7 0.3 - 0.9 x10(3)/[facility] LABORATORY Eosinophils % 3.9 % [facility] LABORATORY Eosinophils Abs 0.3 0.0 - 0.4 x10(3)/[facility] LABORATORY Basophils % 0.7 % [facility] LABORATORY Basophils Abs 0.1 0.0 [...] Lab Terrence Keating MD HEMATOLOGY ORDERABLE S [facility] [place] [address] * Hemogram (06/23/2023 4:12 AM EDT) WBC 8.2 4.0 - 9.5 x10(3)/[facility] LABORATORY RBC 4.59 4.00 - 5.21 x10(6)/[facility] LABORATORY Hemoglobin 14.3 11.7 - 15.5 g/dL [facility] Hematocrit 43.1 35.7 - 45.8 % [facility] MCV 93.9 82.6 - 94.4 fL [facility] MCH 31.2 27.1 - 32.0 pg [facility] MCHC 33.2 31.7 - 35.0 g/dL [facility] LABORAT[facility] Platelets 233 145 - 357 x10(3)/[facility] LABORATORY RDWSD 44.2 37.0 - 46.0 fL [facility] RDWCV 13.0 11.5 - 14.1 % [facility] MPV 11.3 7.6 - 12.9 fL [facility] nRBC % Auto 0.0 % [facility] LABORATORY nRBC Abs Auto 0.000 0.000 - 0.000 x10(3)/mcL [facility] LABORATORY Blood 06/23/2023 4:12 AM EDT 06/23/2023 4:38 AM EDT Narrative Resulting Agency Comment Spec In Lab Terrence Keating MD HEMATOLOGY ORDERABLE S Performing Organization Address City/[facility] Co de Phone Number [facility] [place] [address] * (ABNORMAL) Heparin (unfractionated) Level (06/23/2023 4:12 AM EDT) Heparin UFH Level 1.95(Crit ical) IU/mL [facility] Comment: Critical Result [...] Lab Terrence Keating MD HEMATOLOGY ORDERABLE S [facility] [place] [address] * (ABNORMAL) Basic Metabolic Panel (non-fasting) (06/23/2023 4:12 AM EDT) Glucose Lvl 87 65 - 199 mg/dL [facility] Comment:Diabetes: >=200 mg/d L plus symptoms BUN 23(H) 8 - 18 mg/dL [facility] Creatinine 1.08 0.70 - 1.20 mg/dL [facility] Sodium 137 135 - 145 mmol/L [facility] Potassium 3.8 3.5 - 5.0 mmol/L [facility] Comment: Please note: ??Patients with WBC >100,000 may have falsely elevated Potassium levels. ??For accurate Potassium quantification in these patients send serum separator tube (gold top) for subsequent determinations. ??Contact the Clinical Chemistry Laboratory if there are any questions. Chloride 103 98 - 107 mmol/L [facility] CO2 22 22 - 31 mmol/L [facility] Anion Gap 12 5 - 15 mmol/L [facility] Calcium 9.3 8.5 - 10.5 mg/dL [facility] Estimated GFR 61 >=60 mL/min/1. 73 m?? [facility] MD CHEMISTRY ORDERABL ES Performing Organization Address [facility] Co de Phone Number [facility] [place] [address] * Phosphorus (06/23/2023 4:12 AM EDT) Phosphorus 4.5 2.5 - 4.5 mg/dL [facility] Blood 06/23/2023 4:12 AM EDT 06/23/2023 4:38 AM EDT Narrative Resulting Agency Comment Spec In Lab Eufemia Copeland MD CHEMISTRY ORDERABL ES Performing Organization Address [facility] Co de Phone Number [facility] [place] [address] * Magnesium (06/23/2023 4:12 AM EDT) Magnesium 1.03 0.69 - 1.07 mmol/L [facility] Blood 06/23/2023 4:12 AM EDT 06/23/2023 4:38 AM EDT Narrative Resulting Agency Comment Spec In Lab Eufemia Copeland MD CHEMISTRY ORDERABL ES Performing Organization Address [facility] Co de Phone Number [facility] [place] [address] * ECHO LMTD W CONTRAST W LMTD SPEC DOPP COLOR DOPP (06/22/2023 4:25 PM EDT) Anatomical Region Laterality Modality Cardiac Other 06/22/2023 2:49 PM EDT Narrative 06/22/2023 4:42 PM EDT [address] [place] [address] ? Echocardiogram Report Name: LOIDA ROQUE ?Study Date: 06/22/2023 02:49 PM ?Patient Location: [facility] 04[facility] A ??HR: 57 : 1970 ?Height: 162 cm ? Account: [id number] Age: 53 yrs ?Weight: 102 kg Gender: [...] slight decrease in LV systolic function. Procedure Complete-[id number]. Satisfactory quality. There is normal sinus rhythm. [...] Note Jose Gallegos MD - 06/22/2023 1 [place] [id number] Echocardiogram Report Name: LOIDA ROQUE Study Date: 06/22/2023 02:49 PM Patient Location: [place] [address] A HR:57 : 1970 Height: 162 cmAccount: [id number] Age: 53 yrs Weight: 102 kg Gender: [...] a slightdecrease in LV systolic function. Procedure Complete-[id number]. Satisfactory quality. There is normal sinus rhythm. [...] troponin value can be found in the [facility] Test Catalog Troponin - [facility] Test Catalog Reference: [place] Definition of Myocardial Infarction. Journal of the [place] [employer] 2018;72:7708-7141 Blood 06/22/2023 2:38 PM EDT 06/22/2023 2:50 PM EDT Narrative Resulting Agency Comment Spec In Lab Ailyn Irvin MD CHEMISTRY ORDERABLES [facility] [place] [address] * Duplex for DVT, Arm, Unilat (06/22/2023 2:24 PM EDT) VB Text Report Department: Vascular Surgery Lab Patient: [id number] (LOIDA ROQUE) CPT: [id number] Referring Physician: AILYN IRVIN ?? Phone: Indications: [...] questions please contact the health home care administrator that requested your imaging first. ? Electronically signed by: Itz Hayward MD, [facility] ??([phone]), at 06/22/2023 11:47 AM Narrative 06/22/2023 11:47 [...] have questions please contactthe health home care administrator that requested your imaging first. Ailyn Irvin [...] troponin value can be found in the [facility] Test Catalog Troponin - [facility] Test Catalog Reference: [place] Definition of Myocardial Infarction. Journal of the [place] [employer] 2018;72:6347-8980 Blood 06/22/2023 11:2 4 AM EDT 06/22/2023 11:44 AM EDT Narrative Resulting Agency Comment Spec In Lab Ailyn Irvin MD CHEMISTRY ORDERABLES Performing Organization Address [facility]/ZIP Co de Phone Number [facility] [place] [address] * EKG 12 Lead (06/22/2023 11:13 AM EDT) Ventricular rate 63 BPM MUSE SYSTEM Atrial Rate 63 BPM MUSE SYSTEM P-R Interval 162 ms MUSE SYSTEM QRS Duration 86 ms MUSE SYSTEM Q-T Interval 382 ms MUSE SYSTEM QTC Calculated (Bezet) 390 ms MUSE SYSTEM Calculated P [place] 24 degrees MUSE SYSTEM Calculated R [place] 32 degrees MUSE SYSTEM Calculated T [place] -2 degrees MUSE SYSTEM INTERPRETATION Normal sinus rhythm Septal infarct (cited on or before 22-JUN-2023) Possible Lateral infarct , age undetermined ST & T wave abnormality, consider inferolateral ischemia Abnormal ECG When compared with ECG of 22-JUN-2023 10:55, No significant change was found Confirmed by MD Angelo Danette ([id number]) on 06/22/2023 3:56:31 PM MUSE SYSTEM 06/22/2023 11:1 3 AM EDT 06/22/2023 3:56 PM EDT Ailyn Irvin MD ECG ORDERABLES Performing Organization Address City/[facility]/ZIP Co de Phone Number MUSE SYSTEM * EKG 12 Lead (06/22/2023 10:55 AM EDT) Ventricular rate 56 BPM MUSE SYSTEM Atrial Rate 56 BPM MUSE SYSTEM P-R Interval 168 ms MUSE SYSTEM QRS Duration 88 ms MUSE SYSTEM Q-T Interval 426 ms MUSE SYSTEM QTC Calculated (Bezet) 411 ms MUSE SYSTEM Calculated P [place] 22 degrees MUSE SYSTEM Calculated R [place] 20 degrees MUSE SYSTEM Calculated T [place] 10 degrees MUSE SYSTEM INTERPRETATION Sinus bradycardia Septal infarct , age undetermined ST & T wave abnormality, consider inferolateral ischemia Abnormal ECG When compared with ECG of 21-JUN-2023 10:06, Septal infarct is now Present Confirmed by MD Angelo Danette ([id number]) on 06/22/2023 3:55:53 PM MUSE SYSTEM 06/22/2023 10:5 5 AM EDT 06/22/2023 3:55 PM EDT Ailyn Irvin MD ECG ORDERABLES MUSE SYSTEM * Differential, Automated (06/22/2023 4:34 AM EDT) Neutrophils % 54.4 % [facility] Neutr Abs (ANC) 4.07 1.70 - 6.10 x10(3)/[facility] LABORATORY Lymphocytes % 30.6 % [facility] Lymphocytes Abs 2.3 0.9 - 3.2 x10(3)/[facility] LABORATORY Monocytes % 9.9 % [facility] Monocyte Abs 0.7 0.3 - 0.9 x10(3)/[facility] LABORATORY Eosinophils % 4.3 % [facility] Eosinophils Abs 0.3 0.0 - 0.4 x10(3)/[facility] LABORATORY Basophils % 0.7 % [facility] Basophils Abs 0.0 0.0 - 0.1 x10(3)/[facility] LABORATORY Immature Gran % 0.10 % [facility] [...] Lab Terrence Keating MD HEMATOLOGY ORDERABLE S [facility] [place] [address] * (ABNORMAL) Hemogram (06/22/2023 4:34 AM EDT) WBC 7.5 4.0 - 9.5 x10(3)/[facility] LABORATORY RBC 4.04 4.00 - 5.21 x10(6)/[facility] LABORATORY Hemoglobin 12.8 11.7 - 15.5 g/dL [facility] Hematocrit 39.1 35.7 - 45.8 % [facility] MCV 96.8(H) 82.6 - 94.4 [facility] LABORATORY MCH 31.7 27.1 - 32.0 pg [facility] MCHC 32.7 31.7 - 35.0 g/dL [facility] Platelets 225 145 - 357 x10(3)/[facility] LABORATORY RDWSD 45.9 37.0 - 46.0 [facility] LABORATORY RDWCV 13.0 11.5 - 14.1 % [facility] MPV 10.6 7.6 - 12.9 [facility] LABORATORY nRBC % Auto 0.0 % [facility] nRBC Abs Auto 0.000 0.000 - 0.000 x10(3)/[facility] LABORATORY Blood 06/22/2023 4:34 AM EDT 06/22/2023 4:42 AM EDT Narrative Resulting Agency Comment Spec In Lab Terrence Keating MD HEMATOLOGY ORDERABLE S [facility] [place] [address] * (ABNORMAL) Basic Metabolic Panel (non-fasting) (06/22/2023 4:34 AM EDT) Glucose Lvl 94 65 - 199 mg/dL [facility]OR[facility]ORY Comment:Diabetes: >=200 mg/d L plus symptoms BUN 22(H) 8 - 18 mg/dL [facility] Creatinine 1.19 0.70 - 1.20 mg/dL [facility] Sodium 138 135 - 145 mmol/L [facility] Potassium 3.9 3.5 - 5.0 mmol/L [facility]ORY Comment: Please note: ??Patients with WBC >100,000 may have falsely elevated Potassium levels. ??For accurate Potassium quantification in these patients send serum separator tube (gold top) for subsequent determinations. ??Contact the Clinical Chemistry Laboratory if there are any questions. Chloride 102 98 - 107 mmol/L [facility]ORY CO2 19(L) 22 - 31 mmol/L [facility] Anion Gap 17(H) 5 - 15 mmol/L [facility] Calcium 9.4 8.5 - 10.5 mg/dL [facility] Estimated GFR 54(L) >=60 mL/min/1. 73 m?? [facility] MD CHEMISTRY ORDERABL ES Performing Organization Address [facility] de Phone Number [facility] [place] [address] * (ABNORMAL) Phosphorus (06/22/2023 4:34 AM EDT) Phosphorus 4.9(H) 2.5 - 4.5 mg/dL [facility]ORY Blood 06/22/2023 4:34 AM EDT 06/22/2023 4:42 AM EDT Narrative Resulting Agency Comment Spec In Lab Eufemia Copeland MD CHEMISTRY ORDERABL ES Performing Organization Address [facility] de Phone Number [facility] [place] [address] * Magnesium (06/22/2023 4:34 AM EDT) Magnesium 1.02 0.69 - 1.07 mmol/L [facility]ORY Blood 06/22/2023 4:34 AM EDT 06/22/2023 4:42 AM EDT Narrative Resulting Agency Comment Spec In Lab Eufemia Copeland MD CHEMISTRY ORDERABL ES Performing Organization Address [facility] de Phone Number [facility] [place] [address] * CT Abdomen & Pelvis w Contrast [...] questions please contact the health home care administrator that requested your imaging first. ? [...] have questions please contactthe health home care administrator that requested your imaging first. Eufemia Copeland MD IMG CT ORDERABLES * EKG 12 Lead (06/21/2023 10:06 AM EDT) Ventricular rate 51 BPM MUSE SYSTEM Atrial Rate 51 BPM MUSE SYSTEM P-R Interval 176 ms MUSE SYSTEM QRS Duration 92 ms MUSE SYSTEM Q-T Interval 450 ms MUSE SYSTEM QTC Calculated (Bezet) 414 ms MUSE SYSTEM Calculated P [place] 17 degrees MUSE SYSTEM Calculated R [place] 35 degrees MUSE SYSTEM Calculated T [place] 13 degrees MUSE SYSTEM INTERPRETATION Sinus bradycardia [...] troponin value can be found in the [facility] Test Catalog Troponin - [facility] Test Catalog Reference: Fourth [place] Definition of Myocardial Infarction. Journal of the [place] [employer] 2018;72:6683-0770 Blood 06/21/2023 9:45 AM EDT 06/21/2023 10:08 AM EDT Narrative Resulting Agency Comment Spec In Lab Eufemia Copeland MD CHEMISTRY ORDERABL ES Performing Organization Address [facility] Co de Phone Number [facility] [place] [address] * (ABNORMAL) pro-Brain Natriuretic Peptide (06/21/2023 5:58 AM EDT) ProBNP 1,370(H) <=124 pg/mL [facility] LABORATORY Blood Venous Draw / Unknown 06/21/2023 5:58 AM EDT 06/21/2023 7:28 AM EDT Narrative Resulting Agency Comment Spec In Lab Eufemia Copeland MD CHEMISTRY ORDERABL ES Performing Organization Address [facility] Co de Phone Number [facility] [place] [address] * Potassium (06/21/2023 5:58 AM EDT) Pathologist [facility] Potassium 4.0 3.5 - 5.0 mmol/L [facility] [...] MD CHEMISTRY ORDERABL ES Performing Organization Address [facility] Co de Phone Number [facility] [place] [address] * Differential, Automated (06/21/2023 3:25 AM EDT) Neutrophils % 54.0 % [facility] LABORATORY Neutr Abs (ANC) 5.02 1.70 - 6.10 x10(3)/[facility] LABORATORY Lymphocytes % 31.8 % [facility] LABORATORY Lymphocytes Abs 3.0 0.9 - 3.2 x10(3)/[facility] LABORATORY Monocytes % 8.9 % [facility] LABORATORY Monocyte Abs 0.8 0.3 - 0.9 x10(3)/[facility] LABORATORY Eosinophils % 4.2 % [facility]ORY Eosinophils Abs 0.4 0.0 - 0.4 x10(3)/[facility] LABORATORY Basophils % 0.8 % [facility] LABORATORY Basophils Abs 0.1 0.0 - 0.1 x10(3)/[facility] LABORATORY Immature Gran % 0.30 % [facility] LABORATORY [...] Lab Terrence Keating MD HEMATOLOGY ORDERABLE S [facility] [place] [address] * Hemogram (06/21/2023 3:25 AM EDT) WBC 9.3 4.0 - 9.5 x10(3)/[facility] LABORATORY RBC 4.74 4.00 - 5.21 x10(6)/[facility] LABORATORY Hemoglobin 14.9 11.7 - 15.5 g/dL [facility]ORATORY Hematocrit 44.2 35.7 - 45.8 % [facility] MCV 93.2 82.6 - 94.4 fL [facility] MCH 31.4 27.1 - 32.0 pg [facility] MCHC 33.7 31.7 - 35.0 g/dL [facility] LABORATORY Platelets 279 145 - 357 x10(3)/[facility] LABORATORY RDWSD 44.7 37.0 - 46.0 [facility] LABORATORY RDWCV 13.1 11.5 - 14.1 % [facility] LABORATORY MPV 11.1 7.6 - 12.9 [facility] LABORATORY nRBC % Auto 0.0 % [facility] LABORATORY nRBC Abs Auto 0.000 0.000 - 0.000 x10(3)/[facility] LABORATORY Blood 06/21/2023 3:25 AM EDT 06/21/2023 3:45 AM EDT Narrative Resulting Agency Comment Spec In Lab Terrence Keating MD HEMATOLOGY ORDERABLE S [facility] [place] [address] * (ABNORMAL) Basic Metabolic Panel (non-fasting) (06/21/2023 3:25 AM EDT) Glucose Lvl 95 65 - 199 mg/dL [facility] LABORATORY Comment:Diabetes: >=200 mg/d L plus symptoms BUN 27(H) 8 - 18 mg/dL [facility] Creatinine 1.11 0.70 - 1.20 mg/dL [facility] Sodium 138 135 - 145 mmol/L [facility] Potassium Not Perf 3.5 - 5.0 [facility] LAB[facility]ORY Comment: [...] questions. Chloride 100 98 - 107 mmol/L [facility] CO2 26 22 - 31 mmol/L [facility] Anion Gap 12 5 - 15 mmol/L [facility] Calcium 9.7 8.5 - 10.5 mg/dL [facility] Estimated GFR 59(L) >=60 mL/min/1. 73 m?? [facility] MD CHEMISTRY ORDERABL ES Performing Organization Address City/[facility]/ZIP Co de Phone Number [facility] [place] [address] * (ABNORMAL) Phosphorus (06/21/2023 3:25 AM EDT) Phosphorus 5.1(H) 2.5 - 4.5 mg/dL [facility]ORY Blood 06/21/2023 3:25 AM EDT 06/21/2023 3:45 AM EDT Narrative Resulting Agency Comment Spec In Lab Eufemia Copeland MD CHEMISTRY ORDERABL ES [facility] [place] [address] * Magnesium (06/21/2023 3:25 AM EDT) Pathologist [facility] Magnesium 1.04 0.69 - 1.07 mmol/L [facility] Blood 06/21/2023 3:25 AM EDT 06/21/2023 3:45 AM EDT Narrative Resulting Agency Comment Spec In Lab Eufemia Copeland MD CHEMISTRY ORDERABL ES [facility] [place] [address] * (ABNORMAL) Differential, Automated (06/20/2023 3:32 AM EDT) [facility] Neutrophils % 52.5 % [facility]ORY Neutr Abs (ANC) 5.28 1.70 - 6.10 x10(3)/ L [facility] LAB[facility]ORY Lymphocytes % 32.4 % [facility] LAB[facility]ATORY Lymphocytes Abs 3.3(H) 0.9 - 3.2 x10(3)/[facility] LABORATORY Monocytes % 9.7 % [facility] LABORATORY Monocyte Abs 1.0(H) 0.3 - 0.9 x10(3)/ L [facility] LABORATORY Eosinophils % 4.3 % [facility] Eosinophils Abs 0.4 0.0 - 0.4 x10(3)/ L [facility] Basophils % 0.7 % [facility] LAB[facility]ATORY Basophils Abs 0.1 0.0 - 0.1 x10(3)/ L [facility] Immature Gran % 0.40 % [facility] [...] Abs 0.04 0.00 - 0.04 x10(3)/mc L [facility] LABORATORY Blood 06/20/2023 3:32 AM EDT 06/20/2023 3:47 AM EDT Narrative Resulting Agency Comment Spec In Lab Terrence Keating MD HEMATOLOGY ORDERABLE S [facility] [place] [address] * (ABNORMAL) Hemogram (06/20/2023 3:32 AM EDT) WBC 10.1(H) 4.0 - 9.5 x10(3)/[facility] LABORATORY RBC 4.57 4.00 - 5.21 x10(6)/[facility] LABORATORY Hemoglobin 14.2 11.7 - 15.5 g/dL [facility]OR[facility] Hematocrit 41.5 35.7 - 45.8 % [facility] MCV 90.8 82.6 - 94.4 fL [facility] MCH 31.1 27.1 - 32.0 pg [facility] MCHC 34.2 31.7 - 35.0 g/dL [facility]OR[facility] Platelets 253 145 - 357 x10(3)/[facility] LABORATORY RDWSD 43.7 37.0 - 46.0 fL [facility] RDWCV 13.2 11.5 - 14.1 % [facility] MPV 10.8 7.6 - 12.9 fL [facility] nRBC % Auto 0.0 % [facility] LABORATORY nRBC Abs Auto 0.000 0.000 - 0.000 x10(3)/[facility] LABORATORY Blood 06/20/2023 3:32 AM EDT 06/20/2023 3:47 AM EDT Narrative Resulting Agency Comment Spec In Lab Terrence Keating MD HEMATOLOGY ORDERABLE S [facility] [place] [address] * (ABNORMAL) Basic Metabolic Panel (non-fasting) (06/20/2023 3:32 AM EDT) Glucose Lvl 99 65 - 199 mg/dL [facility] LABORATORY Comment:Diabetes: >=200 mg/d L plus symptoms BUN 26(H) 8 - 18 mg/dL [facility] Creatinine 1.12 0.70 - 1.20 mg/dL [facility] Sodium 137 135 - 145 mmol/L [facility] Potassium 3.7 3.5 - 5.0 mmol/L [facility]ATORY Comment: Please note: ??Patients with WBC >100,000 may have falsely elevated Potassium levels. ??For accurate Potassium quantification in these patients send serum separator tube (gold top) for subsequent determinations. ??Contact the Clinical Chemistry Laboratory if there are any questions. Chloride 102 98 - 107 mmol/L [facility] CO2 22 22 - 31 mmol/L [facility] Anion Gap 13 5 - 15 mmol/L [facility] Calcium 9.4 8.5 - 10.5 mg/dL [facility] Estimated GFR 58(L) >=60 mL/min/1. 73 m?? [facility] MD CHEMISTRY ORDERABL ES Performing Organization Address City/[facility]/ZIP Co de Phone Number [facility] [place] [address] * Phosphorus (06/20/2023 3:32 AM EDT) Phosphorus 4.3 2.5 - 4.5 mg/dL [facility] Blood 06/20/2023 3:32 AM EDT 06/20/2023 3:47 AM EDT Narrative Resulting Agency Comment Spec In Lab Eufemia Copeland MD CHEMISTRY ORDERABL ES Performing Organization Address [facility] Co de Phone Number [facility] [place] [address] * Magnesium (06/20/2023 3:32 AM EDT) Magnesium 1.00 0.69 - 1.07 mmol/L [facility] Blood 06/20/2023 3:32 AM EDT 06/20/2023 3:47 AM EDT Narrative Resulting Agency Comment Spec In Lab Eufemia Copeland MD CHEMISTRY ORDERABL ES Performing Organization Address [facility] Co de Phone Number [facility] [place] [address] * Phosphorus (06/19/2023 5:26 PM EDT) Phosphorus 4.0 2.5 - 4.5 mg/dL [facility] Blood 06/19/2023 5:26 PM EDT 06/19/2023 5:32 PM EDT Narrative Resulting Agency Comment Spec In Lab Eufemia Copeland MD CHEMISTRY ORDERABL ES Performing Organization Address City/[facility]/ZIP Co de Phone Number [facility] [place] [address] * Magnesium (06/19/2023 5:26 PM EDT) Magnesium 0.98 0.69 - 1.07 mmol/L [facility] Blood 06/19/2023 5:26 PM EDT 06/19/2023 5:32 PM EDT Narrative Resulting Agency Comment Spec In Lab Eufemia Copeland MD CHEMISTRY ORDERABL ES [facility] [place] [address] * (ABNORMAL) Basic Metabolic Panel (non-fasting) (06/19/2023 5:26 PM EDT) Glucose Lvl 105 65 - 199 mg/dL [facility] Comment:Diabetes: >=200 mg/d L plus symptoms BUN 21(H) 8 - 18 mg/dL [facility] Creatinine 1.06 0.70 - 1.20 mg/dL [facility] Sodium 139 135 - 145 mmol/L [facility] Potassium 3.9 3.5 - 5.0 mmol/L [facility] Comment: Please note: ??Patients with WBC >100,000 may have falsely elevated Potassium levels. ??For accurate Potassium quantification in these patients send serum separator tube (gold top) for subsequent determinations. ??Contact the Clinical Chemistry Laboratory if there are any questions. Chloride 103 98 - 107 mmol/L [facility] CO2 22 22 - 31 mmol/L [facility] Anion Gap 14 5 - 15 mmol/L [facility] Calcium 9.5 8.5 - 10.5 mg/dL [facility] Estimated GFR 62 >=60 mL/min/1. 73 m?? [facility] MD CHEMISTRY ORDERABL ES Performing Organization Address [facility]/ZIP Co de Phone Number [facility]ORATORY [place] [phone] * EKG 12 Lead (06/19/2023 4:24 AM EDT) Ventricular rate 66 BPM MUSE SYSTEM Atrial Rate 66 BPM MUSE SYSTEM P-R Interval 188 ms MUSE SYSTEM QRS Duration 92 ms MUSE SYSTEM Q-T Interval 484 ms MUSE SYSTEM QTC Calculated (Bezet) 507 ms MUSE SYSTEM Calculated P [place] 32 degrees MUSE SYSTEM Calculated R [place] 22 degrees MUSE SYSTEM Calculated T [place] 47 degrees MUSE SYSTEM INTERPRETATION Normal sinus rhythm Nonspecific ST abnormality Prolonged QT Abnormal ECG When compared with ECG of 15-JUN-2023 10:50, No significant change was found Confirmed by MD AKIRA, CINDY ([id number]) on 06/19/2023 2:42:42 PM MUSE SYSTEM 06/19/2023 4:24 AM EDT 06/19/2023 2:42 PM EDT Terrence Keating MD ECG ORDERABLES Performing Organization Address [facility]/ZIP Co de Phone Number MUSE SYSTEM * (ABNORMAL) Basic Metabolic Panel (non-fasting) (06/19/2023 3:22 AM EDT) Glucose Lvl 101 65 - 199 mg/dL [facility] Comment:Diabetes: >=200 mg/d L plus symptoms BUN 24(H) 8 - 18 mg/dL [facility] Creatinine 1.04 0.70 - 1.20 mg/dL [facility] Sodium 137 135 - 145 mmol/L [facility] Potassium 3.6 3.5 - 5.0 mmol/L [facility] Comment: Please note: ??Patients with WBC >100,000 may have falsely elevated Potassium levels. ??For accurate Potassium quantification in these patients send serum separator tube (gold top) for subsequent determinations. ??Contact the Clinical Chemistry Laboratory if there are any questions. Chloride 100 98 - 107 mmol/L [facility] CO2 Not Perf 22 - 31 [facility] Comment:Add-on request. Samp le too old to perform test. Anion Gap Unable to Calculate 5 - 15 mmol/L [facility] Calcium 9.4 8.5 - 10.5 mg/dL [facility] Estimated GFR 64 >=60 mL/min/1 .73 m?? [facility] [...] Lab Eufemia Copeland MD CHEMISTRY ORDERABL ES [facility] [place] [address] * Differential, Automated (06/19/2023 3:22 AM EDT) Neutrophils % 54.0 % [facility] Neutr Abs (ANC) 5.08 1.70 - 6.10 x10(3)/mcL [facility] Lymphocytes % 30.7 % [facility] Lymphocytes Abs 2.9 0.9 - 3.2 x10(3)/[facility] LABORATORY Monocytes % 10.0 % [facility]ORAT[facility] Monocyte Abs 0.9 0.3 - 0.9 x10(3)/[facility] LABORATORY Eosinophils % 4.5 % [facility] Eosinophils Abs 0.4 0.0 - 0.4 x10(3)/[facility] LABORATORY Basophils % 0.6 % [facility] Basophils Abs 0.1 0.0 [...] Lab Terrence Keating MD HEMATOLOGY ORDERABLE S [facility] [place] [address] * Hemogram (06/19/2023 3:22 AM EDT) WBC 9.4 4.0 - 9.5 x10(3)/[facility] LABORATORY RBC 4.48 4.00 - 5.21 x10(6)/[facility] LABORATORY Hemoglobin 13.9 11.7 - 15.5 g/dL [facility] Hematocrit 41.7 35.7 - 45.8 % [facility] MCV 93.1 82.6 - 94.4 fL [facility] MCH 31.0 27.1 - 32.0 pg [facility] MCHC 33.3 31.7 - 35.0 g/dL [facility] Platelets 244 145 - 357 x10(3)/[facility] LABORATORY RDWSD 44.2 37.0 - 46.0 [facility] LABORATORY RDWCV 12.9 11.5 - 14.1 % [facility] MPV 10.9 7.6 - 12.9 [facility] LABORATORY nRBC % Auto 0.0 % [facility] nRBC Abs Auto 0.000 0.000 - 0.000 x10(3)/[facility] LABORATORY Blood 06/19/2023 3:22 AM EDT 06/19/2023 3:47 AM EDT Narrative Resulting Agency Comment Spec In Lab Terrence Keating MD HEMATOLOGY ORDERABLE S [facility] [place] [address] * Phosphorus (06/19/2023 3:22 AM EDT) Phosphorus 4.1 2.5 - 4.5 mg/dL [facility] Blood 06/19/2023 3:22 AM EDT 06/19/2023 3:47 AM EDT Narrative Resulting Agency Comment Spec In Lab Eufemia Copeland MD CHEMISTRY ORDERABL ES [facility] [place] [address] * Magnesium (06/19/2023 3:22 AM EDT) Magnesium 1.00 0.69 - 1.07 mmol/L [facility] Blood 06/19/2023 3:22 AM EDT 06/19/2023 3:47 AM EDT Narrative Resulting Agency Comment Spec In Lab Eufemia Copeland MD CHEMISTRY ORDERABL ES [facility] [place] [address] * (ABNORMAL) Basic Metabolic Panel (non-fasting) (06/18/2023 5:17 PM EDT) Glucose Lvl 115 65 - 199 mg/dL [facility] Comment:Diabetes: >=200 mg/d L plus symptoms BUN 22(H) 8 - 18 mg/dL [facility] Creatinine 1.12 0.70 - 1.20 mg/dL [facility] Sodium 137 135 - 145 mmol/L [facility] Potassium 4.2 3.5 - 5.0 mmol/L [facility] Comment: Please note: ??Patients with WBC >100,000 may have falsely elevated Potassium levels. ??For accurate Potassium quantification in these patients send serum separator tube (gold top) for subsequent determinations. ??Contact the Clinical Chemistry Laboratory if there are any questions. Chloride 101 98 - 107 mmol/L [facility] CO2 22 22 - 31 mmol/L [facility] Anion Gap 14 5 - 15 mmol/L [facility] Calcium 9.6 8.5 - 10.5 mg/dL [facility] Estimated GFR 58(L) >=60 mL/min/1. 73 m?? [facility] Lab Eufemia Copeland MD CHEMISTRY ORDERABL ES [facility] [place] [address] * (ABNORMAL) Basic Metabolic Panel (non-fasting) (06/18/2023 4:19 AM EDT) Glucose Lvl 96 65 - 199 mg/dL [facility] Comment:Diabetes: >=200 mg/d L plus symptoms BUN 22(H) 8 - 18 mg/dL [facility] Creatinine 0.93 0.70 - 1.20 mg/dL [facility] Sodium 138 135 - 145 mmol/L [facility] Potassium 4.2 3.5 - 5.0 mmol/L [facility] Comment: Please note: ??Patients with WBC >100,000 may have falsely elevated Potassium levels. ??For accurate Potassium quantification in these patients send serum separator tube (gold top) for subsequent determinations. ??Contact the Clinical Chemistry Laboratory if there are any questions. Chloride 102 98 - 107 mmol/L [facility] CO2 Not Perf 22 - 31 [facility] Comment:Add-on request. Samp le too old to perform test. Anion Gap Unable to Calculate 5 - 15 mmol/L [facility] Calcium 9.5 8.5 - 10.5 mg/dL [facility] Estimated GFR 73 >=60 mL/min/1 .73 m?? [facility] [...] Lab Eufemia Copeland MD CHEMISTRY ORDERABL ES [facility] [place] [address] * Differential, Automated (06/18/2023 4:19 AM EDT) Neutrophils % 54.1 % [facility] Neutr Abs (ANC) 4.52 1.70 - 6.10 x10(3)/[facility] LABORATORY Lymphocytes % 31.0 % [facility] Lymphocytes Abs 2.6 0.9 - 3.2 x10(3)/[facility] LABORATORY Monocytes % 9.2 % [facility] Monocyte Abs 0.8 0.3 - 0.9 x10(3)/[facility] LABORATORY Eosinophils % 4.9 % [facility] Eosinophils Abs 0.4 0.0 - 0.4 x10(3)/[facility] LABORATORY Basophils % 0.6 % [facility] Basophils Abs [...] Lab Terrence Keating MD HEMATOLOGY ORDERABLE S [facility] [place] [address] * Hemogram (06/18/2023 4:19 AM EDT) WBC 8.4 4.0 - 9.5 x10(3)/[facility] LABORATORY RBC 4.70 4.00 - 5.21 x10(6)/[facility] LABORATORY Hemoglobin 14.5 11.7 - 15.5 g/dL [facility] Hematocrit 42.8 35.7 - 45.8 % [facility] MCV 91.1 82.6 - 94.4 [facility] LABORATORY MCH 30.9 27.1 - 32.0 pg [facility] MCHC 33.9 31.7 - 35.0 g/dL [facility] Platelets 258 145 - 357 x10(3)/[facility] LABORATORY RDWSD 43.6 37.0 - 46.0 [facility] LABORATORY RDWCV 13.0 11.5 - 14.1 % [facility] MPV 10.7 7.6 - 12.9 [facility] LABORATORY nRBC % Auto 0.0 % [facility] nRBC Abs Auto 0.000 0.000 - 0.000 x10(3)/[facility] LABORATORY Blood 06/18/2023 4:19 AM EDT 06/18/2023 4:40 AM EDT Narrative Resulting Agency Comment Spec In Lab Terrence Keating MD HEMATOLOGY ORDERABLE S [facility] [place] [address] * Phosphorus (06/18/2023 4:19 AM EDT) Phosphorus 3.7 2.5 - 4.5 mg/dL [facility] Blood 06/18/2023 4:19 AM EDT 06/18/2023 4:40 AM EDT Narrative Resulting Agency Comment Spec In Lab Eufemia Copeland MD CHEMISTRY ORDERABL ES Performing Organization Address [facility] Co de Phone Number [facility] [place] [address] * Magnesium (06/18/2023 4:19 AM EDT) Magnesium 1.02 0.69 - 1.07 mmol/L [facility] Blood 06/18/2023 4:19 AM EDT 06/18/2023 4:40 AM EDT Narrative Resulting Agency Comment Spec In Lab Eufemia Copeland MD CHEMISTRY ORDERABL ES Performing Organization Address [facility] Co de Phone Number [facility] [place] [address] * Phosphorus (06/17/2023 2:26 PM EDT) Phosphorus 2.8 2.5 - 4.5 mg/dL [facility] Blood 06/17/2023 2:26 PM EDT 06/17/2023 2:36 PM EDT Narrative Resulting Agency Comment Spec In Lab Eufemia Copeland MD CHEMISTRY ORDERABL ES Performing Organization Address [facility]/ZIP Co de Phone Number [facility] [place] [address] * Magnesium (06/17/2023 2:26 PM EDT) Magnesium 1.01 0.69 - 1.07 mmol/L [facility] Blood 06/17/2023 2:26 PM EDT 06/17/2023 2:36 PM EDT Narrative Resulting Agency Comment Spec In Lab Eufemia Copeland MD CHEMISTRY ORDERABL ES [facility] [place] [address] * (ABNORMAL) Basic Metabolic Panel (non-fasting) (06/17/2023 2:26 PM EDT) Glucose Lvl 103 65 - 199 mg/dL [facility] Comment:Diabetes: >=200 mg/d L plus symptoms BUN 21(H) 8 - 18 mg/dL [facility] Creatinine 1.07 0.70 - 1.20 mg/dL [facility] Sodium 135 135 - 145 mmol/L [facility] Potassium 3.7 3.5 - 5.0 mmol/L [facility] Comment: Please note: ??Patients with WBC >100,000 may have falsely elevated Potassium levels. ??For accurate Potassium quantification in these patients send serum separator tube (gold top) for subsequent determinations. ??Contact the Clinical Chemistry Laboratory if there are any questions. Chloride 97(L) 98 - 107 mmol/L [facility] CO2 24 22 - 31 mmol/L [facility] Anion Gap 14 5 - 15 mmol/L [facility] Calcium 9.6 8.5 - 10.5 mg/dL [facility] Estimated GFR 62 >=60 mL/min/1. 73 m?? [facility] Eufemia Copeland MD CHEMISTRY ORDERABL ES [facility] [place] [place] [address] * XR Abdomen Flat & Upright (06/17/2023 [...] questions please contact the health home care administrator that requested your imaging first. ? Electronically signed by: Wilton Cabrera MD, [facility] ([phone]), at 06/17/2023 5:30 PM Narrative 06/17/2023 5:30 PM EDT EXAMINATION: XR ABDOMEN FLAT AND UPRIGHT CLINICAL HISTORY: patient with foul odor from [employer]. hx hysterectomy, LLQ tenderness, constipation TECHNIQUE: Supine [...] CLINICAL HISTORY: patient with foul odor from [employer]. hx hysterectomy, LLQ tenderness, constipation TECHNIQUE: Supine [...] have questions please contactthe health home care administrator that requested your imaging first. Electronically signed by: Wilton Cabrera MD, [facility]([phone]), at 06/17/2023 5:30 PM Eufemia Copeland MD IMG DX ORDERABLES * (ABNORMAL) Basic Metabolic Panel (non-fasting) (06/17/2023 5:01 AM EDT) Glucose Lvl 100 65 - 199 mg/dL [facility] Comment:Diabetes: >=200 mg/d L plus symptoms BUN 24(H) 8 - 18 mg/dL [facility] Creatinine 1.03 0.70 - 1.20 mg/dL [facility] Sodium 136 135 - 145 mmol/L [facility] Potassium Not Perf 3.5 - 5.0 [facility] Comment: [...] questions. Chloride 100 98 - 107 mmol/L [facility] CO2 24 22 - 31 mmol/L [facility] Anion Gap 12 5 - 15 mmol/L [facility] Calcium 9.5 8.5 - 10.5 mg/dL [facility] In Lab Terrence Keating MD CHEMISTRY ORDERABLES [facility] [place] [address] * Differential, Automated (06/17/2023 1:11 AM EDT) Neutrophils % 54.5 % [facility] Neutr Abs (ANC) 5.20 1.70 - 6.10 x10(3)/[facility] Lymphocytes % 31.4 % [facility] Lymphocytes Abs 3.0 0.9 - 3.2 x10(3)/[facility] LABORATORY Monocytes % 9.8 % [facility] Monocyte Abs 0.9 0.3 - 0.9 x10(3)/[facility] LABORATORY Eosinophils % 3.4 % [facility] Eosinophils Abs 0.3 0.0 - 0.4 x10(3)/[facility] Basophils % 0.5 % [facility] Basophils Abs [...] Lab Terrence Keating MD HEMATOLOGY ORDERABLE S [facility] [place] [address] * Hemogram (06/17/2023 1:11 AM EDT) WBC 9.5 4.0 - 9.5 x10(3)/[facility] RBC 4.60 4.00 - 5.21 x10(6)/[facility] Hemoglobin 14.2 11.7 - 15.5 g/dL [facility] Hematocrit 43.0 35.7 - 45.8 % [facility] MCV 93.5 82.6 - 94.4 [facility] MCH 30.9 27.1 - 32.0 pg [facility] MCHC 33.0 31.7 - 35.0 g/dL [facility] Platelets 256 145 - 357 x10(3)/[facility] LABORATORY RDWSD 45.0 37.0 - 46.0 [facility] LABORATORY RDWCV 13.2 11.5 - 14.1 % [facility] MPV 10.9 7.6 - 12.9 [facility] LABORATORY nRBC % Auto 0.0 % [facility] nRBC Abs Auto 0.000 0.000 - 0.000 x10(3)/[facility]ORAT[facility] Blood 06/17/2023 1:11 AM EDT 06/17/2023 1:16 AM EDT Narrative Resulting Agency Comment Spec In Lab Terrence Keating MD HEMATOLOGY ORDERABLE S [facility] [place] [address] * Magnesium (06/17/2023 1:11 AM EDT) Pathologist [facility] Magnesium 0.96 0.69 - 1.07 mmol/L [facility] Blood 06/17/2023 1:11 AM EDT 06/17/2023 1:16 AM EDT Narrative Resulting Agency Comment Spec In Lab Eufemia Copeland MD CHEMISTRY ORDERABL ES Performing Organization Address [facility] Co de Phone Number [facility] [place] [address] * (ABNORMAL) Basic Metabolic Panel (non-fasting) (06/17/2023 1:11 AM EDT) [facility] Glucose Lvl 102 65 - 199 mg/dL [facility] Comment:Diabetes: >=200 mg/d L plus symptoms BUN 24(H) 8 - 18 mg/dL [facility] Creatinine 1.08 0.70 - 1.20 mg/dL [facility] questions. Chloride 100 98 - 107 mmol/L [facility] CO2 24 22 - 31 mmol/L [facility] Anion Gap 13 5 - 15 mmol/L [facility] Calcium 9.2 8.5 - 10.5 mg/dL [facility] Estimated GFR 61 >=60 mL/min/1. 73 m?? [facility] In Lab Terrence Keating MD CHEMISTRY ORDERABLES [facility] [place] [address] * (ABNORMAL) Basic Metabolic Panel (non-fasting) (06/16/2023 8:28 PM EDT) Glucose Lvl 111 65 - 199 mg/dL [facility] Comment:Diabetes: >=200 mg/d L plus symptoms BUN 23(H) 8 - 18 mg/dL [facility] Creatinine 1.21(H) 0.70 - 1.20 mg/dL [facility] Sodium 137 135 - 145 mmol/L [facility] Potassium 4.2 3.5 - 5.0 mmol/L [facility] Comment: Please note: ??Patients with WBC >100,000 may have falsely elevated Potassium levels. ??For accurate Potassium quantification in these patients send serum separator tube (gold top) for subsequent determinations. ??Contact the Clinical Chemistry Laboratory if there are any questions. Chloride 99 98 - 107 mmol/L [facility] CO2 26 22 - 31 mmol/L [facility] Anion Gap 12 5 - 15 mmol/L [facility] Calcium 9.3 8.5 - 10.5 mg/dL [facility] Estimated GFR 53(L) >=60 mL/min/1. 73 m?? [facility] Lab Eufemia Copeland MD CHEMISTRY ORDERABL ES [facility] [place] [address] * (ABNORMAL) Basic Metabolic Panel (non-fasting) (06/16/2023 2:29 PM EDT) Glucose Lvl 175 65 - 199 mg/dL [facility] Comment:Diabetes: >=200 mg/d L plus symptoms BUN 25(H) 8 - 18 mg/dL [facility] Creatinine 1.27(H) 0.70 - 1.20 mg/dL [facility] Sodium 135 135 - 145 mmol/L [facility] Potassium 3.9 3.5 - 5.0 mmol/L [facility] Comment: result rechecked-EL Please note: ??Patients with WBC >100,000 may have falsely elevated Potassium levels. ??For accurate Potassium quantification in these patients send serum separator tube (gold top) for subsequent determinations. ??Contact the Clinical Chemistry Laboratory if there are any questions. Chloride 96(L) 98 - 107 mmol/L [facility] CO2 26 22 - 31 mmol/L [facility] Anion Gap 13 5 - 15 mmol/L [facility] Calcium 9.3 8.5 - 10.5 mg/dL [facility] Estimated GFR 50(L) >=60 mL/min/1. 73 m?? [facility] Lab Eufemia Copeland MD CHEMISTRY ORDERABL ES [facility] [place] [id number] * (ABNORMAL) Basic Metabolic Panel (non-fasting) (06/16/2023 9:01 AM EDT) Glucose Lvl 148 65 - 199 mg/dL [facility] Comment:Diabetes: >=200 mg/d L plus symptoms BUN 27(H) 8 - 18 mg/dL [facility] Creatinine 1.27(H) 0.70 - 1.20 mg/dL [facility] Sodium 136 135 - 145 mmol/L [facility] Potassium 2.9(Criti edy) 3.5 - 5.0 mmol/L [facility] Comment: called by tmp /read back by (Malia Mcintyre)/ 06/16/23 @875 Please note: ??Patients with WBC >100,000 may have falsely elevated Potassium levels. ??For accurate Potassium quantification in these patients send serum separator tube (gold top) for subsequent determinations. ??Contact the Clinical Chemistry Laboratory if there are any questions. Chloride 91(L) 98 - 107 mmol/L [facility] CO2 32(H) 22 - 31 mmol/L [facility] Anion Gap 13 5 - 15 mmol/L [facility] Calcium 9.7 8.5 - 10.5 mg/dL [facility] Estimated GFR 50(L) >=60 mL/min/1. 73 m?? [facility] MD CHEMISTRY ORDERABL ES Performing Organization Address City/[facility]/ZIP Co de Phone Number [facility] [place] [address] * (ABNORMAL) Magnesium (06/16/2023 3:30 AM EDT) Magnesium 1.09(H) 0.69 - 1.07 mmol/L [facility] Blood Venous Draw / Unknown 06/16/2023 3:30 AM EDT 06/16/2023 3:38 AM EDT Narrative Resulting Agency Comment Spec In Lab Eufemia Copeland MD CHEMISTRY ORDERABL ES [facility] [place] [address] * (ABNORMAL) Differential, Automated (06/16/2023 3:30 AM EDT) Neutrophils % 50.4 % [facility] Neutr Abs (ANC) 4.15 1.70 - 6.10 x10(3)/[facility] LABORATORY Lymphocytes % 33.7 % [facility] Lymphocytes Abs 2.8 0.9 - 3.2 x10(3)/[facility] LABORATORY Monocytes % 11.8 % [facility] Monocyte Abs 1.0(H) 0.3 - 0.9 x10(3)/[facility] LABORATORY Eosinophils % 3.3 % [facility] Eosinophils Abs 0.3 0.0 - 0.4 x10(3)/[facility] LABORATORY Basophils % 0.6 % [facility] Basophils Abs 0.0 0.0 - 0.1 x10(3)/[facility] LABORATORY Immature Gran % 0.20 % [facility] [...] 0.04 x10(3)/[facility] LABORATORY Blood 06/16/2023 3:30 AM EDT 06/16/2023 3:37 AM EDT Narrative Resulting Agency Comment Spec In Lab Terrence Keating MD HEMATOLOGY ORDERABLE S [facility] [place] [address] * Hemogram (06/16/2023 3:30 AM EDT) WBC 8.2 4.0 - 9.5 x10(3)/[facility] LABORATORY RBC 4.69 4.00 - 5.21 x10(6)/[facility]ORATORY Hemoglobin 14.5 11.7 - 15.5 g/dL [facility] Hematocrit 42.7 35.7 - 45.8 % [facility] MCV 91.0 82.6 - 94.4 fL [facility] MCH 30.9 27.1 - 32.0 pg [facility] MCHC 34.0 31.7 - 35.0 g/dL [facility] Platelets 260 145 - 357 x10(3)/[facility] LABORATORY RDWSD 43.5 37.0 - 46.0 fL [facility] RDWCV 13.0 11.5 - 14.1 % [facility] MPV 11.1 7.6 - 12.9 [facility] LABORATORY nRBC % Auto 0.0 % [facility] nRBC Abs Auto 0.000 0.000 - 0.000 x10(3)/[facility] LABORATORY Blood 06/16/2023 3:30 AM EDT 06/16/2023 3:37 AM EDT Narrative Resulting Agency Comment Spec In Lab Terrence Keating MD HEMATOLOGY ORDERABLE S [facility] [place] [address] * (ABNORMAL) Basic Metabolic Panel (non-fasting) (06/16/2023 3:30 AM EDT) Glucose Lvl 110 65 - 199 mg/dL [facility] Comment:Diabetes: >=200 mg/d L plus symptoms BUN 28(H) 8 - 18 mg/dL [facility] Creatinine 1.20 0.70 - 1.20 mg/dL [facility] Sodium 135 135 - 145 mmol/L [facility] Potassium 2.7(Criti edy) 3.5 - 5.0 mmol/L [facility] Comment: called by WALESKA /read back by Jolly Friedman / 06/16/23 0403 Please note: ??Patients with WBC >100,000 may have falsely elevated Potassium levels. ??For accurate Potassium quantification in these patients send serum separator tube (gold top) for subsequent determinations. ??Contact the Clinical Chemistry Laboratory if there are any questions. Chloride 90(L) 98 - 107 mmol/L [facility] CO2 33(H) 22 - 31 mmol/L [facility] Anion Gap 12 5 - 15 mmol/L [facility] Calcium 9.2 8.5 - 10.5 mg/dL [facility] Estimated GFR 54(L) >=60 mL/min/1. 73 m?? [facility] Lab Eufemia Copeland MD CHEMISTRY ORDERABL ES [facility] [place] [address] * Heparin (unfractionated) Level (06/16/2023 3:30 AM EDT) Heparin UFH Level 0.64 IU/mL [facility] [...] Lab Terrence Keating MD HEMATOLOGY ORDERABLE S [facility] [place] [address] * Lipid Panel (Reflex Direct LDL) (06/16/2023 3:30 AM EDT) Chol, Total 190 mg/dL [facility] Comment: Desirable: ? <200 mg/dL Borderline High: 200-239 mg/dL Higher: ?>ad=020 mg/dL Triglycerides 126 mg/dL [facility] Comment: Normal: ?<150 mg/dL Borderline High: 150-199 mg/dL High: ?200-499 mg/dL Very High: ? >xn=447 mg/dL HDL 50 mg/dL [facility] Comment: Females: High Risk: <50 mg/dL Males: High Risk: <40 mg/dL LDL Cholesterol 115 mg/dL [facility] Comment: Desirable: ? <100 mg/dL Above Desirable: 100-129 mg/dL Borderline High: 130-159 mg/dL High: ?160-189 mg/dL Very High: ? >wv=827 mg/dL Lipid Interpretation See Note [facility] Comment: It is [...] ACC/AHA Guidelines (most recently Ysabel et al. [facility] 12/09/21): For individuals with atherosclerotic cardiovascular disease (ASCVD)or LDL >pr=312 mg/dL, use a high-intensity statin (40-80 mg [...] In Lab Terrence Keating MD CHEMISTRY ORDERABLES [facility] [place] [address] * (ABNORMAL) Basic Metabolic Panel (non-fasting) (06/15/2023 9:33 PM EDT) Glucose Lvl 120 65 - 199 mg/dL [facility] Comment:Diabetes: >=200 mg/d L plus symptoms BUN 29(H) 8 - 18 mg/dL [facility] Creatinine 1.38(H) 0.70 - 1.20 mg/dL [facility] Sodium 135 135 - 145 mmol/L [facility] Potassium 3.1(L) 3.5 - 5.0 mmol/L [facility] Comment: Please note: ??Patients with WBC >100,000 may have falsely elevated Potassium levels. ??For accurate Potassium quantification in these patients send serum separator tube (gold top) for subsequent determinations. ??Contact the Clinical Chemistry Laboratory if there are any questions. Chloride 92(L) 98 - 107 mmol/L [facility] CO2 31 22 - 31 mmol/L [facility] Anion Gap 12 5 - 15 mmol/L [facility] Calcium 9.4 8.5 - 10.5 mg/dL [facility] Estimated GFR 45(L) >=60 mL/min/1. 73 m?? [facility] MD CHEMISTRY ORDERABL ES Performing Organization Address [facility]/ZIP Co de Phone Number [facility] [place] [address] * Heparin (unfractionated) Level (06/15/2023 9:33 PM EDT) Heparin UFH Level 0.63 IU/mL [facility] [...] MD HEMATOLOGY ORDERABLE S Performing Organization Address [facility]/ZIP Co de Phone Number [facility] [place] [address] * (ABNORMAL) Magnesium (06/15/2023 5:47 PM EDT) Magnesium 1.10(H) 0.69 - 1.07 mmol/L [facility] Blood Venous Draw / Unknown 06/15/2023 5:47 PM EDT 06/15/2023 6:10 PM EDT Narrative Resulting Agency Comment Spec In Lab Terrence Keating MD CHEMISTRY ORDERABLES Performing Organization Address City/[facility]/ZIP Co de Phone Number [facility] [place] [address] * (ABNORMAL) Basic Metabolic Panel (non-fasting) (06/15/2023 5:47 PM EDT) Glucose Lvl 147 65 - 199 mg/dL [facility] Comment:Diabetes: >=200 mg/d L plus symptoms BUN 29(H) 8 - 18 mg/dL [facility] Creatinine 1.20 0.70 - 1.20 mg/dL [facility] Sodium 134(L) 135 - 145 mmol/L [facility] Potassium 2.9(Criti edy) 3.5 - 5.0 mmol/L [facility] Comment: Called by: dm, Read back by: qamar ren, Date/Time:06/15/23 19:11. Please note: ??Patients with WBC >100,000 may have falsely elevated Potassium levels. ??For accurate Potassium quantification in these patients send serum separator tube (gold top) for subsequent determinations. ??Contact the Clinical Chemistry Laboratory if there are any questions. Chloride 89(L) 98 - 107 mmol/L [facility] CO2 29 22 - 31 mmol/L [facility] Anion Gap 16(H) 5 - 15 mmol/L [facility] Calcium 9.1 8.5 - 10.5 mg/dL [facility] Estimated GFR 54(L) >=60 mL/min/1. 73 m?? [facility] Lab Eufemia Copeland MD CHEMISTRY ORDERABL ES [facility] [place] [address] * Rapid Drug Screen w/o Confirmation, Urine (06/15/2023 4:46 PM EDT) U Barbiturates Screen None Detected None Detected [facility] Comment: The barbiturate [...] U Benzodiazepines Screen None Detected None Detected [facility] Comment: The benzodiazepines [...] U Cocaine Screen None Detected None Detected [facility] Comment: The cocaine [...] Methadone Metabolites Screen None Detected None Detected [facility] Comment: The methadone [...] U Opiate Screen None Detected None Detected [facility] Comment: The opiates [...] U Cannabinoid Screen None Detected None Detected [facility] Comment: The marijuana metabolites screen detects the THC metabolite (56-wyr-9-carboxy-delta 9-THC) at concentrations >20 ng/mL. A ? Presumptive Positive? result indicates that the screening result was positive but has not yet been confirmed by a highly-specific method. As with any screen, occasional false positive results from cross-reacting substances may occur. Not for Medico-Legal Purposes. U Oxycodone Screen None Detected None Detected [facility] Comment: The oxycodone screen detects oxycodone and oxymorphone at concentrations >100 ng/mL. A ? Presumptive Positive? result indicates that the screening result was positive but has not yet been confirmed by a highly-specific method. As with any screen, occasional false positive results from cross-reacting substances may occur. Not for Medico-Legal Purposes. U Buprenorphine Screen None Detected None Detected [facility] Comment: The buprenorphine [...] characteristics of this test were determined by [facility] in accordance with CLIA requirements. This laboratory is qualified under CLIA to perform high-complexity testing. U Fentanyl Screen None Detected None Detected [facility] Comment: The fentanyl [...] characteristics of this test were determined by [facility] in accordance with CLIA requirements. This laboratory is qualified under CLIA to perform high-complexity testing. U Tricyclics Screen None Detected None Detected [facility] Comment: The tricyclics [...] characteristics of this test were determined by [facility] in accordance with CLIA requirements. This laboratory is qualified under CLIA to perform high-complexity testing. U Ethanol Screen None Detected None Detected [facility] Comment:This urine ethanol a ssay detects ethanol at concentrations >/= 100 mg/L. U Amphetamines Screen None Detected None Detected [facility] Comment: The amphetamine screen detects d-amphetamine and d-methamphetamine at concentrations >300 ng/mL. A ? Presumptive Positive? result indicates that the screening result was positive but has not yet been confirmed by a highly-specific method. As with any screen, occasional false positive results from cross-reacting substances may occur. Not for Medico-Legal Purposes. U Creat TEE 39 >=20 mg/dL [facility] U Chromate TEE <2.0 <=49.9 mg/L [facility] U Nitrite TEE <50 <=499 mg/L [facility] U Oxidant TEE 12 <=199 mg/L [facility] U pH TEE 5.4 3.0 - 10.9 [facility] U Adulterants Screen None Detected None Detected [facility] Comment:No adulteration of t his urine sample was detected. Urine 06/15/2023 4:46 PM EDT 06/15/2023 5:30 PM EDT Narrative Resulting Agency Comment Spec In Lab Eufemia Copeland MD CHEMISTRY ORDERABL ES Performing Organization Address [facility] Co de Phone Number [facility] [place] [address] * Rapid Drug Screen, Urine (TEE Request) (06/15/2023 4:46 PM EDT) TEE Conf Requested No [facility] TEE Requested See Comment [facility] Comment:Refer to Rapid Drug Screen w/o Confirmation, Urine for results. Urine 06/15/2023 4:46 PM EDT 06/15/2023 5:30 PM EDT Narrative Resulting Agency Comment Spec In Lab Eufemia Copeland MD URINE ORDERABLES Performing Organization Address [facility] de Phone Number [facility] [place] [address] * (ABNORMAL) Basic Metabolic Panel (non-fasting) (06/15/2023 2:29 PM EDT) [facility] Glucose Lvl 141 65 - 199 mg/dL [facility] Comment:Diabetes: >=200 mg/d L plus symptoms BUN 31(H) 8 - 18 mg/dL [facility] Creatinine 1.21(H) 0.70 - 1.20 mg/dL [facility] Sodium 132(L) 135 - 145 mmol/L [facility] Potassium 3.0(Criti edy) 3.5 - 5.0 mmol/L [facility] Comment: Called by: dm, Read back by: qamar ren, Date/Time:06/15/23 15:18. Please note: ??Patients with WBC >100,000 may have falsely elevated Potassium levels. ??For accurate Potassium quantification in these patients send serum separator tube (gold top) for subsequent determinations. ??Contact the Clinical Chemistry Laboratory if there are any questions. Chloride 89(L) 98 - 107 mmol/L [facility] CO2 32(H) 22 - 31 mmol/L [facility] Anion Gap 11 5 - 15 mmol/L [facility] Calcium 9.6 8.5 - 10.5 mg/dL [facility] Estimated GFR 53(L) >=60 mL/min/1. 73 m?? [facility] Lab Eufemia Copeland MD CHEMISTRY ORDERABL ES [facility] [place] [address] * Heparin (unfractionated) Level (06/15/2023 2:29 PM EDT) Heparin UFH Level 0.93 IU/mL [facility] [...] MD HEMATOLOGY ORDERABLE S Performing Organization Address [facility] Co de Phone Number [facility] [place] [address] * EKG 12 Lead (06/15/2023 10:50 AM EDT) Ventricular rate 55 BPM MUSE SYSTEM Atrial Rate 55 BPM MUSE SYSTEM P-R Interval 184 ms MUSE SYSTEM QRS Duration 96 ms MUSE SYSTEM Q-T Interval 590 ms MUSE SYSTEM QTC Calculated (Bezet) 565 ms MUSE SYSTEM Calculated P [place] 54 degrees MUSE SYSTEM Calculated R [place] 54 degrees MUSE SYSTEM Calculated T [place] 13 degrees MUSE SYSTEM INTERPRETATION Sinus bradycardia with sinus arrhythmia Marked ST abnormality, possible inferior subendocardial injury Long QT interval Abnormal ECG When compared with ECG of 15-JUN-2023 02:17, Nonspecific T wave abnormality has replaced inverted T waves in Lateral leads Confirmed by Kai Haider ([id number]) on 06/16/2023 3:52:04 PM MUSE SYSTEM 06/15/2023 10:5 0 AM EDT 06/16/2023 3:52 PM EDT Terrence Keating MD ECG ORDERABLES Performing Organization Address [facility] de Phone Number MUSE SYSTEM * (ABNORMAL) Basic Metabolic Panel (non-fasting) (06/15/2023 8:18 AM EDT) Glucose Lvl 113 65 - 199 mg/dL [facility] Comment:Diabetes: >=200 mg/d L plus symptoms BUN 29(H) 8 - 18 mg/dL [facility] Creatinine 1.22(H) 0.70 - 1.20 mg/dL [facility] Sodium 134(L) 135 - 145 mmol/L [facility] Potassium 2.5(Criti edy) 3.5 - 5.0 mmol/L [facility] Comment: Called by: cheryl, Read back by: eamon mckeon, Date/Time:06/15/23 09:34. Please note: ??Patients with WBC >100,000 may have falsely elevated Potassium levels. ??For accurate Potassium quantification in these patients send serum separator tube (gold top) for subsequent determinations. ??Contact the Clinical Chemistry Laboratory if there are any questions. Chloride 89(L) 98 - 107 mmol/L [facility] CO2 30 22 - 31 mmol/L [facility] Anion Gap 15 5 - 15 mmol/L [facility] Calcium 10.0 8.5 - 10.5 mg/dL [facility] Estimated GFR 53(L) >=60 mL/min/1. 73 m?? [facility] Lab Eufemia Copeland MD CHEMISTRY ORDERABL ES [facility] [place] [address] * Heparin (unfractionated) Level (06/15/2023 8:18 AM EDT) Heparin UFH Level 0.70 IU/mL [facility] [...] Lab Terrence Keating MD HEMATOLOGY ORDERABLE S [facility] [place] [address] * (ABNORMAL) Troponin (06/15/2023 8:18 AM EDT) [...] troponin value can be found in the [facility] Test Catalog Troponin - [facility] Test Catalog Reference: Fourth [place] Definition of Myocardial Infarction. Journal of the [place] [employer] 2018;72:9810-6743 Blood 06/15/2023 8:18 AM EDT 06/15/2023 8:34 AM EDT Narrative Resulting Agency Comment Spec In Lab Terrence Keating MD CHEMISTRY ORDERABLES [facility] [place] [address] * Differential, Automated (06/15/2023 4:28 AM EDT) Neutrophils % 48.0 % [facility] Neutr Abs (ANC) 3.20 1.70 - 6.10 x10(3)/[facility] Lymphocytes % 35.8 % [facility] Lymphocytes Abs 2.4 0.9 - 3.2 x10(3)/[facility] Monocytes % 11.4 % [facility] Monocyte Abs 0.8 0.3 - 0.9 x10(3)/[facility] Eosinophils % 3.7 % [facility] Eosinophils Abs 0.2 0.0 - 0.4 x10(3)/[facility] Basophils % 1.0 % [facility] Basophils Abs 0.1 0.0 - 0.1 x10(3)/[facility] Immature Gran % 0.10 % [facility] [...] Lab Terrence Keating MD HEMATOLOGY ORDERABLE S [facility] [place] [address] * (ABNORMAL) Hemogram (06/15/2023 4:28 AM EDT) [facility] WBC 6.7 4.0 - 9.5 x10(3)/[facility] RBC 5.09 4.00 - 5.21 x10(6)/[facility] Hemoglobin 16.1(H) 11.7 - 15.5 g/dL [facility] Hematocrit 48.2(H) 35.7 - 45.8 % [facility] MCV 94.7(H) 82.6 - 94.4 [facility] MCH 31.6 27.1 - 32.0 pg [facility] MCHC 33.4 31.7 - 35.0 g/dL [facility] Platelets 253 145 - 357 x10(3)/[facility] RDWSD 45.5 37.0 - 46.0 [facility] RDWCV 13.0 11.5 - 14.1 % [facility] MPV 10.6 7.6 - 12.9 [facility] nRBC % Auto 0.0 % [facility] nRBC Abs Auto 0.000 0.000 - 0.000 x10(3)/[facility] Blood 06/15/2023 4:28 AM EDT 06/15/2023 4:37 AM EDT Narrative Resulting Agency Comment Spec In Lab Terrence Keating MD HEMATOLOGY ORDERABLE S [facility] [place] [address] * (ABNORMAL) Troponin (06/15/2023 4:28 AM EDT) Troponin-T HS 34(H) <=14 ng/L [facility] troponin value can be found in the [facility] Test Catalog Troponin - [facility] Test Catalog Reference: [place] Definition of Myocardial Infarction. Journal of the [place] [employer] 2018;72:1690-4393 Blood 06/15/2023 4:28 AM EDT 06/15/2023 4:37 AM EDT Narrative Resulting Agency Comment Spec In Lab Terrence Keating MD CHEMISTRY ORDERABLES Performing Organization Address City/State/[facility] Co de Phone Number [facility] [place] [address] * (ABNORMAL) Prothrombin Time (06/15/2023 4:28 AM EDT) PT 12.7(H) 9.4 - 12.5 sec [facility] INR 1.1 [facility] Comment: An INR <2.0 indicates [...] MD HEMATOLOGY ORDERABLE S Performing Organization Address [facility] Co de Phone Number [facility] [place] [address] * (ABNORMAL) Hepatic Function Panel (06/15/2023 4:28 AM EDT) Total Protein 7.5 6.1 - 8.0 g/dL [facility] Albumin 4.3 3.2 - 5.2 g/dL [facility] AST 32(H) 0 - 30 unit/L [facility] ALT 26 0 - 30 unit/L [facility] Alk Phos 70 35 - 105 unit/L [facility] Total Bilirubin 0.8 0.2 - 1.3 mg/dL [facility] Bili, Direct 0.1 0.0 - 0.3 mg/dL [facility] Blood 06/15/2023 4:28 AM EDT 06/15/2023 4:37 AM EDT Narrative Resulting Agency Comment Spec In Lab Terrence Keating MD CHEMISTRY ORDERABLES Performing Organization Address [facility] Co de Phone Number [facility] [place] [address] * (ABNORMAL) pro-Brain Natriuretic Peptide (06/15/2023 4:28 AM EDT) ProBNP 1,953(H) <=124 pg/mL [facility] Blood 06/15/2023 4:28 AM EDT 06/15/2023 4:37 AM EDT Narrative Resulting Agency Comment Spec In Lab Terrence Keating MD CHEMISTRY ORDERABLES Performing Organization Address [facility] de Phone Number [facility] [place] [address] * TSH (06/15/2023 4:28 AM EDT) TSH 2.98 0.27 - 4.20 mcIU/mL [facility] Comment: Reference Interval (mcIU/mL): Females: ??First Trimester: 0.23-3.88 ??Second Trimester: 0.22-3.90 ??Third Trimester: 0.44-4.66 Blood 06/15/2023 4:28 AM EDT 06/15/2023 4:37 AM EDT Narrative Resulting Agency Comment Spec In Lab Terrence Keating MD CHEMISTRY ORDERABLES Performing Organization Address [facility] de Phone Number [facility] [place] [address] * Phosphorus (06/15/2023 4:28 AM EDT) Phosphorus 4.4 2.5 - 4.5 mg/dL [facility] Blood 06/15/2023 4:28 AM EDT 06/15/2023 4:37 AM EDT Narrative Resulting Agency Comment Spec In Lab Terrence Keating MD CHEMISTRY ORDERABLES Performing Organization Address [facility] Co de Phone Number [facility] [place] [address] * (ABNORMAL) Magnesium (06/15/2023 4:28 AM EDT) Magnesium 1.22(H) 0.69 - 1.07 mmol/L [facility] Blood 06/15/2023 4:28 AM EDT 06/15/2023 4:37 AM EDT Narrative Resulting Agency Comment Spec In Lab Terrence Keating MD CHEMISTRY ORDERABLES Performing Organization Address City/[facility] Co de Phone Number [facility] [place] [address] * Calcium (06/15/2023 4:28 AM EDT) Calcium 9.7 8.5 - 10.5 mg/dL [facility] Blood 06/15/2023 4:28 AM EDT 06/15/2023 4:37 AM EDT Narrative Resulting Agency Comment Spec In Lab Terrence Keating MD CHEMISTRY ORDERABLES [facility] [place] [address] * (ABNORMAL) Basic Metabolic Panel (non-fasting) (06/15/2023 4:28 AM EDT) Pathologist [facility] Glucose Lvl 112 65 - 199 mg/dL [facility] Comment:Diabetes: >=200 mg/d L plus symptoms BUN 30(H) 8 - 18 mg/dL [facility] Creatinine 1.24(H) 0.70 - 1.20 mg/dL [facility] Sodium 134(L) 135 - 145 mmol/L [facility] Potassium 2.7(Criti edy) 3.5 - 5.0 mmol/L [facility] Comment: Called by: , Read back by: Olive Hernandez, Date/Time:06/15/23 05:16. Please note: ??Patients with WBC >100,000 may have falsely elevated Potassium levels. ??For accurate Potassium quantification in these patients send serum separator tube (gold top) for subsequent determinations. ??Contact the Clinical Chemistry Laboratory if there are any questions. Chloride 90(L) 98 - 107 mmol/L [facility] CO2 28 22 - 31 mmol/L [facility] Anion Gap 16(H) 5 - 15 mmol/L [facility] Calcium 9.7 8.5 - 10.5 mg/dL [facility] Estimated GFR 52(L) >=60 mL/min/1. 73 m?? [facility] Keating MD CHEMISTRY ORDERABLES Performing Organization Address City/[facility] Co de Phone Number [facility] [place] [address] * EKG 12 Lead (06/15/2023 2:17 AM EDT) Ventricular rate 57 BPM MUSE SYSTEM Atrial Rate 57 BPM MUSE SYSTEM P-R Interval 200 ms MUSE SYSTEM QRS Duration 94 ms MUSE SYSTEM Q-T Interval 606 ms MUSE SYSTEM QTC Calculated (Bezet) 591 ms MUSE SYSTEM Calculated P [place] 66 degrees MUSE SYSTEM Calculated R [place] 74 degrees MUSE SYSTEM Calculated T [place] -33 degrees MUSE SYSTEM INTERPRETATION Sinus bradycardia Possible Lateral infarct (cited on or before 17-APR-2023) Marked ST abnormality, possible inferior subendocardial injury Prolonged QTc Abnormal ECG When compared with ECG of 20-APR-2023 10:23, Nonspecific T wave changes QT has lengthened Confirmed by fellow MD Hansa, Sindhu ([id number]) on 06/15/2023 4:36:19 PM Confirmed by MD Angelo Danette ([id number]) on 06/15/2023 4:51:21 PM MUSE SYSTEM 06/15/2023 2:17 AM EDT 06/15/2023 4:51 PM EDT Terrence Keating MD ECG ORDERABLES [place] [facility] documented in this encounter Visit Diagnoses [...] - Reason: Transfer to a Procedural area)1548 ([facility] Unhold - Provider: Admin Adt) 0856 (Given - Provider: Heidy Paris RN) 0931 (Given - Provider: Heidy Paris RN) gabapentin (Neurontin) capsule 600 mg 600 mg, Oral, NIGHTLY, First dose on Wed06/15/23 at 0200, Until Discontinued, Routine 1332 (MAY Hold - Provider: Admin Adt - Reason: Transfer to a Procedural area)1548 ([facility] Unhold - Provider: Admin Adt)7 (Given - [...] - Reason: Transfer to a Procedural area)1548 ([facility] Unhold - Provider: Admin Adt) 1000 (Not [...] Heidy Paris RN - Reason: Patient/family refused)1332 ([facility] Hold - Provider: Admin Adt - Reason: Transfer to a Procedural area)1548 ([facility] Unhold - Provider: Admin Adt) 0900 (Not [...] 0853 (Given - Provider: Heidy Paris RN)1332 ([facility] Hold - Provider: Admin Adt - Reason: Transfer to a Procedural area)1548 ([facility] Unhold - Provider: Admin Adt)2136 (Given - Provider: Lorena Torres RN) 0856 (Given - Provider: Hiedy Paris RN)2117 (Given - Provider: Machelle Busch RN) 0938 (Given - Provider: Heidy Paris, ERWIN) rimegepant (Nurtec ODT) Tablet, Rapid Dissolve 75 mg 75 mg, Oral, EVERY 48 HOURS, First dose (after last modification) on Wed06/23/23 at 1000, Until Discontinued 1000 (Not Given - Provider: Heidy Paris RN - Reason: Patient/family refused)1332 ([facility] Hold - Provider: Admin Adt - Reason: Transfer to a Procedural area)1548 ([facility] Unhold - Provider: Admin Adt) 1000 (Not [...] Heidy Paris RN - Reason: Patient/family refused)1332 ([facility] Hold - Provider: Admin Adt - Reason: Transfer to a Procedural area)1548 ([facility] Unhold - Provider: Admin Adt)2100 (Not Given [...] - Reason: Transfer to a Procedural area)1548 ([facility] Unhold - Provider: Admin Adt)2100 (Not Given [...] ordered pain medications are indicated., Routine 1332 ([facility] Hold - Provider: Admin Adt - Reason: Transfer to a Procedural area)1548 ([facility] Unhold - Provider: Admin Adt) albuteroL (Proventil, Ventolin) (2.5 mg/3 mL) (0.083 %) nebulizer solution 2.5 mg 2.5 mg, Nebulization, EVERY 4 HOURS PRN, Starting on Wed07/04/23 at 0857, Until Wed07/09/23 at 1844, Wheezing, Routine 1332 ([facility] Hold - Provider: Admin Adt - Reason: Transfer to a Procedural area)1548 ([facility] Unhold - Provider: Admin Adt) lidocaine (Xylocaine) 1% (10 mg/mL) injection 3 mg 3 mg (0.3 mL), Subcutaneous, ONCE PRN, 1 dose, Starting on Wed06/15/23 at 0146, Until Wed07/09/23 at 1844, for discomfort with PIV insertion, Routine 1332 ([facility] Hold - Provider: Admin Adt - Reason: Transfer to a Procedural area)1548 ([facility] Unhold - Provider: Admin Adt) loratadine (Claritin) tablet 10 mg 10 mg, Oral, DAILY PRN, Starting on Wed06/15/23 at 0146, Until Wed07/09/23 at 1844, allergies, Routine 1332 ([facility] Hold - Provider: Admin Adt - Reason: Transfer to a Procedural area)1548 ([facility] Unhold - Provider: Admin Adt) nitroGLYcerin (Nitrostat) disintegrating tablet 0.4 mg 0.4 mg, Sublingual, EVERY 5 MIN PRN, Starting on Wed06/22/23 at 1119, Until Wed07/09/23 at 1844, Chest pain, SL nitroglycerin may be repeated every 5 minutes as needed up to 3 doses, Routine 1332 ([facility] Hold - Provider: Admin Adt - Reason: Transfer to a Procedural area)1548 ([facility] Unhold - Provider: Admin Adt) 0951 (Given - Provider: Heidy Paris, ERWIN) ondansetron (pf) (Zofran) (2 mg/mL) injection 4 mg 4 mg, Intravenous, EVERY 8 HOURS PRN, Starting on Wed06/29/23 at 1449, Until Wed07/09/23 at 1844, Nausea 1332 ([facility] Hold - Provider: Admin Adt - Reason: Transfer to a Procedural area)1548 ([facility] Unhold - Provider: Admin Adt)2137 (Given - [...] all sources in 24 hours., Routine 1332 ([facility] Hold - Provider: Admin Adt - Reason: Transfer to a Procedural area)1548 ([facility] Unhold - Provider: Admin Adt)2137 (Given - Provider: Lorena Torres, ERWIN) 0855 (Given - Provider: Heidy Paris, ERWIN)2120 (Given - Provider: Machelle Busch RN) simethicone (Gas-X Chew) 80 mg chewable tablet 80 mg 80 mg, Oral, EVERY 6 HOURS PRN, Starting on Wed06/20/23 at 0941, Until Wed07/09/23 at 1844, Cramping, Routine 1332 ([facility] Hold - Provider: Admin Adt - Reason: Transfer to a Procedural area)1548 ([facility] Unhold - Provider: Admin Adt) 1344 (Given [...] Routine documented in this encounter Care Teams Hot Iron Worker Relationship Specialty Start Date End Date Polo Pearce PA [address] [place] [address] PCP - General Internal Medicine 06/09/21 documented as of this encounter
--- OUTSIDE RECORDS SUMMARY | 2023-10-05 17:05 | XMS_ITS | Encounter Summary ---
Author Organization Formerly [facility], [facility] Address [facility] [place] [address] Care Team Providers Care Printing Machinist Name Role Phone Polo Pearce Primary Care Provider [phone] Encounter Details Date Type Department Care Team (Late st Contact Info) Description 05/28/2023 Telephone Cardiology at [address] [place] [address] Jaspreet Kinsey MD [facility] [place] [address] Social History Tobacco Use Types Packs/Day Years Used Date Smoking Tobacco: Never Smokeless Tobacco: Never Alcohol Use Standard Drinks/Week Comments Never 0 (1 standard drink = 0.6 oz pur e alcohol) [facility] Utilities Answer Date Recorded In the past 12 months has [employer] gas, oil, or water [employer] threatened to shut off services in your [...] has gone up. Please call her @ [phone] * Telephone Encounter - Nilda Mayes, RN - 06/04/2023 9:41 AM EDT Next office visit is scheduled Date Visit Type Department Provider 09/22/2023 3:00 PM FOLLOW UP VISIT Cardiology at [place] Arrive at: [facility] Suite Lissa Kinsey * Telephone Encounter - Aide Glass - 05/28/2023 10:53 AM EDT Patient had labs done recently. She would like to know what Dr Kinsey thinks about them and what if anything she should be doing. Please call her @ [phone] . documented in this encounter Plan of Treatment Upcoming Encounters Date Type Department Care Team (Late st Contact Info) Description 10/08/2023 8:30 AM EDT Tech Visit Vascular Lab at [place] [phone] Channing Escobedo [place] 10/08/2023 9:30 AM EDT Office [place] [address] MD [facility] [place] [place] [address] 10/21/2023 10:30 AM EDT Appoint[place] [address] Mary Reyes [facility] [place] [address] 10/21/2023 11:30 AM EDT Appoint[place] [phone] Mary Reyes [facility] [place] [address] 10/21/2023 12:30 PM EDT Appoint[place] [phone] Mary Reyes [facility] [place] [address] 10/21/2023 1:30 PM EDT Appoint[place] [address] Mary Reyes [facility] [place] [address] 10/21/2023 2:30 PM EDT Appointment Nuclear Medicine at [place] [phone] [place] [address] 10/26/2023 4:00 PM EDT Office Visit Cardiology at [address] [address] Jaspreet Kinsey MD [facility] [place] [address] 10/28/2023 9:00 AM EDT Office [place] [address] 10/29/2023 10:00 AM EDT Clinical [place] [address] 10/29/2023 10:15 AM EDT Procedure [place] [address] 11/01/2023 5:00 PM EDT Office Visit Gastroenterology at [place] [phone] Selene Browning, PhD [facility] [address] 11/22/2023 4:40 PM EDT Office Visit Cardiology at [address] [phone] Porsha Mcdaniels MD [facility] [place] [address] 12/13/2023 10:00 AM EDT Clinical [place] [address] Lucero Romero, [place] [facility] [place] [address] documented as of this encounter Visit Diagnoses Not on filedocumented in this encounter Care Teams Printing Machinist Relationship Specialty Start Date End Date Polo Pearce PA [address] [facility] [address] [place] [address] PCP - General Internal Medicine 06/09/21 documented as of this encounter
--- OUTSIDE RECORDS SUMMARY | 2023-10-05 17:05 | XMS_ITS | Encounter Summary ---
[place] [address] Care Team Providers Care Electronics Engineering Professor Name Role Phone Polo Pearce Primary Care Provider [phone] Reason for Visit * Auth/Cert (Routine) Specialty Diagnoses / Procedures Referred By Jayant harris Referred To Contact Diagnoses NSTEMI (non-ST elevated myocardial infarction) NSTEMI Procedures ER Lloyd Pantoja MD [facility] [place] [address] [facility] Referral ID Status Reason Start Date Expiration Date Visits Re quested Visits Authorized [id number] 1 1 Encounter Details Date Type Department Care Team (Latest Contact Info) Description 07/02/2023 10:10 AM EDT - 07/02/2023 11:59 PM EDT Hospital [place] [address] Discharge Disposition: Home Social History Tobacco Use Types Packs/Day Years Used Date Smoking Tobacco: Never Smokeless Tobacco: Never Alcohol Use Standard Drinks/Week Comments Never 0 (1 standard drink = 0.6 oz pur e alcohol) [facility] Utilities Answer Date Recorded In the past 12 months has [employer], gas, oil, or water company threatened [...] as needed. fluticasone propionate (FLONASE) 50 mcg/actuation [place], Suspension 1 spray by Each Nare route [...] ordered. Henrietta Judge MD Vascular Surgery Pager: [phone] 07/02/23 ASA: 3 Mal: 3 Cr: Lab Results Component Value Date CREATININE 1.21 (H) 07/02/2023 * Deborah Ely RN - 07/02/2023 10:56 AM EDT [facility] DATAB[facility] Name: Indira Roque Date of : 1970 AGE: 53 y.o. Address: [address] [place] [address] (home) [phone] (work) Mobile: Telephone Information: Referring Provider: Pat [...] groin Right Groin Closure device used: Pro [place] Time sheath removed: 13:12 Time of hemostasis: [...] of : 1970 AGE: 53 y.o. [address] [facility] [address] (home) [phone] (work) Mobile: Telephone Information: Referring Provider: Pat [...] AM EDT Tech [place] [address] Channing [place] 10/08/2023 9:30 AM EDT Office Visit Vascular Surgery at [place] [phone] MD [facility] [place] [address] 10/21/2023 10:30 AM EDT Appointment Nuclear Medicine at [place] [phone] [place] [address] 10/21/2023 11:30 AM EDT Appointment Nuclear Medicine at [place] [phone] [place] [address] 10/21/2023 12:30 PM EDT Appointment Nuclear Medicine at [place] [phone] [place] [address] 10/21/2023 1:30 PM EDT Appointment [place] [address] Mary Reyes [facility] [place] [address] 10/21/2023 2:30 PM EDT Appointment [place] [address] Mary Reyes [facility] [place] [address] 10/26/2023 4:00 PM EDT Office Visit Cardiology at [address] [phone] Jaspreet Kinsey MD [facility] [place] [address] 10/28/2023 9:00 AM EDT Office [place] [address] 10/29/2023 10:00 AM EDT Clinical [place] [address] 10/29/2023 10:15 AM EDT Procedure [place] [address] 11/01/2023 5:00 PM EDT Office [place] [phone] Selene Browning, PhD [facility] PSYCHI[place]RY [place] [address] 11/22/2023 4:40 PM EDT Office Visit Cardiology at [address] [phone] Porsha Mcdaniels MD [facility] [place] [address] 12/13/2023 10:00 AM EDT Clinical [place] [phone] [facility] [place] [address] documented as of this encounter Procedures Procedure [...] mg documented in this encounter Care Teams Electronics Engineering Professor Relationship Specialty Start Date End Date Polo Pearce PA [address] [place] [address] PCP - General Internal Medicine 06/09/21 documented as of this encounter
--- OUTSIDE RECORDS SUMMARY | 2023-10-05 17:05 | XMS_ITS | Encounter Summary ---
[place] [address] Care Team Providers Care Aquatic Performer Name Role Phone Polo Pearce Primary Care Provider [phone] Reason for Referral * Diagnostic Test (Routine) - Closed Specialty Diagnoses / Procedures Referred By Jayant harris Referred To Contact Radiology Diagnoses Chest pain, unspecified type Procedures NM PET CT Cardiac Sarcoid Maegan Mike VICE PRESIDENT [facility] [place] [address] [place] [address] Referral ID Status Reason Start Date Expiration Date V isits Requested Visits Authorized [id number] Closed Specialty Service Requested 04/22/2023 10/20/2024 4 4 Reason for Visit * Diagnostic Test (Routine) - Closed Specialty Diagnoses / Procedures Referred By Contjulita t Referred To Contact Radiology Diagnoses Chest pain, unspecified type Procedures NM PET CT Cardiac Sarcoid Maegan Mike VICE PRESIDENT [facility] [place] [address] [place] [address] Referral ID Status Reason Start Date Expiration Date V isits Requested Visits Authorized [id number] Closed Specialty Service Requested 04/22/2023 10/20/2024 4 4 Encounter Details Date Type Department Care Team (Latest Contact Info) Description 04/30/2023 11:01 AM EST Hospital Encounter [place] [address] Maegan Mike, [facility] [address] Chest pain, unspecified type Discharge Disposition: Home Social History Tobacco Use Types Packs/Day Years Used Date Smoking Tobacco: Never Smokeless Tobacco: Never Alcohol Use Standard Drinks/Week Comments Never 0 (1 standard drink = 0.6 oz pur e alcohol) [facility] Utilities Answer Date Recorded In [...] slept in a half-way (including now)? No 04/19/2023 IPV Inpatient Questions [...] nightly as needed. empagliflozin (Jardiance) 10 mg TabletIndications:Vulcanizer Operator neal heart failure with preserved ejection fraction Take 1 tablet by mouth daily. 90 tablet 1 06/11/2021 rOPINIRole (Requip) 1 mg Tablet Take 2 mg by mouth 2 times daily. 07/16/2020 loratadine (Claritin) 10 mg Tablet Take 10 mg by mouth daily as needed. fluticasone propionate (FLONASE) 50 mcg/actuation [place], Suspension 1 spray by Each Nare route [...] AM EDT Tech [place] [address] [place] 10/08/2023 9:30 AM EDT Office Visit [place] [phone] MD [facility] [place] [place] [address] 10/21/2023 10:30 AM EDT Appointment [place] [phone] Mary Reyes [facility] [place] [address] 10/21/2023 11:30 AM EDT Appointment [place] [phone] Mary Reyes [facility] [place] [address] 10/21/2023 12:30 PM EDT Appointment [place] [phone] Mary Reyes [facility] [place] [address] 10/21/2023 1:30 PM EDT Appointment [place] [address] Mary Reyes VICE PRESIDENT [facility] [place] [address] 10/21/2023 2:30 PM EDT Appointment [place] [phone] Mary Reyes VICE PRESIDENT [facility] [place] [address] 10/26/2023 4:00 PM EDT Office Visit Cardiology at [address] [phone] Jaspreet Kinsey MD [facility] [place] [address] 10/28/2023 9:00 AM EDT Office [place] [address] 10/29/2023 10:00 AM EDT Clinical [place] [address] 10/29/2023 10:15 AM EDT Procedure [place] [address] 11/01/2023 5:00 PM EDT Office [place] [address] Selene Browning, PhD [facility] [place] [address] 11/22/2023 4:40 PM EDT Office Visit Cardiology at [address] [phone] Porsha Mcdaniels MD [facility] [place] [address] 12/13/2023 10:00 AM EDT Clinical Support Gastroenterology at [facility] [place] [place] [address] [facility] [place] [place] [address] documented as of this encounter Procedures Procedure [...] who have questions please contact the health direct care counselor that requested your imaging first. ? Electronically signed by: Humberto Qureshi MD, 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 Following IV administration of 26.5 mCi technetium 99m sestamibi, SPECT-CT of the heart was obtained. Following IV injection of 8.8 mCi 63-idnjwx-0-deoxyglucose (FDG) and a standard uptake of approximately [...] obtained. Following IV injection of 8.8 mCi 10-pqzhkx-5-deoxyglucose (FDG) and astandard uptake of approximately 60 [...] patients who have questions please contactthe health direct care counselor that requested your imaging first. Maegan Mike APRN IMG PET ORDERABLE S * POCT Glucose (04/30/2023 12:19 PM EST) POC Glucose 79 65 - 199 mg/dL [facility] Comment: Supplemental ranges: <140 mg/dL before meals <180 mg/dL all other times of the day Blood 04/30/2023 12:1 9 PM EST 04/30/2023 12:19 PM EST Maegan Mike APRN POINT OF CARE LYNETTE T ORDERABLES [facility] [place] [address] documented in this encounter Visit Diagnoses Diagnosis [...] Arm documented in this encounter Care Teams Aquatic Performer Relationship Specialty Start Date End Date Polo Pearce PA [address] [place] [address] PCP - General Internal Medicine 06/09/21 documented as of this encounter
--- OUTSIDE RECORDS SUMMARY | 2023-10-05 17:05 | XMS_ITS | Encounter Summary ---
Author Organization [facility] Address [place] [address] Care Team Providers Care Carpentry Specialist Name Role Phone Polo Pearce Primary Care Provider [phone] Encounter Details Date Type Department Care Team (Late st Contact Info) Description 06/14/2023 Telephone Cardiology at [address] [address] Sarah Kahn, PARTS ROOM ASSISTANT [facility] [place] [address] Social History Tobacco Use Types Packs/Day Years Used Date Smoking Tobacco: Never Smokeless Tobacco: Never Alcohol Use Standard Drinks/Week Comments Never 0 (1 standard drink = 0.6 oz pur e alcohol) [facility] Utilities Answer Date Recorded In the past 12 months has [employer], gas, oil, or water [employer] threatened to shut off services in your [...] AM Referring Provider: Dr. Iyer Patient Location: [facility] Past Medical History: Mild, nonobstructive CAD, s/p [facility] 04/2023 for similar presentation SVT s/p [...] showed no evidence of inflammation/sarcoid. Troponin at [facility] at the time of [...] or examined this patient. Sarah Kahn, MICHELL, MANAGER [employer], PARTS ROOM ASSISTANT [facility] Cardiovascular Medicine documented in this encounter Plan of Treatment Upcoming Encounters Date Type Department Care Team (Late st Contact Info) Description 10/08/2023 8:30 AM EDT Tech [place] [address] Channing Kellogg [place] 10/08/2023 9:30 AM EDT Office Visit Vascular Surgery at [place] [phone] MD [facility] [place] [address] 10/21/2023 10:30 AM EDT Appointment Nuclear Medicine at [place] [phone] [place] [address] 10/21/2023 11:30 AM EDT Appointment Nuclear Medicine at [place] [phone] [place] [address] 10/21/2023 12:30 PM EDT Appointment Nuclear Medicine at [place] [phone] [place] [address] 10/21/2023 1:30 PM EDT Appointment [place] [address] Mary Reyes [facility] [place] [address] 10/21/2023 2:30 PM EDT Appointment [place] [address] Mary Reyes [facility] [place] [address] 10/26/2023 4:00 PM EDT Office Visit Cardiology at [address] [place] [phone] Jaspreet Kinsey MD [facility] [place] [address] 10/28/2023 9:00 AM EDT Office [place] [address] 10/29/2023 10:00 AM EDT Clinical [place] [address] 10/29/2023 10:15 AM EDT Procedure [place] [address] 11/01/2023 5:00 PM EDT Office [place] [address] Selene Browning, PhD [facility] [place] [address] 11/22/2023 4:40 PM EDT Office Visit Cardiology at [address] [phone] Porsha Mcdaniels MD [facility] [place] [address] 12/13/2023 10:00 AM EDT Clinical [place] [address]-[address] [facility] [place] [address] documented as of this encounter Visit Diagnoses Not on filedocumented in this encounter Care Teams Carpentry Specialist Relationship Specialty Start Date End Date Polo Pearce PA Sb MOTT [address] [place] [address] PCP - General Internal Medicine 06/09/21 documented as of this encounter
--- OUTSIDE RECORDS SUMMARY | 2023-10-05 17:05 | XMS_ITS | Encounter Summary ---
Author Organization [facility] Address [facility] [place] [address] Care Team Providers Care Treasury Analyst Name Role Phone Polo Pearce Primary Care Provider [phone] Reason for Referral * Consultation (Routine) - Closed Specialty Diagnoses / Procedures Referred By Jayant harris Referred To Contact Cardiology Diagnoses Heart failure with preserved ejection fraction, unspecified HF chronicity [place]. thorough evaluation performed to date. Jaspreet Kinsey MD [facility] [place] [address] Porsha Mcdaniels MD [facility] [place] [address] Referral ID Status Reason Start Date Expiration Date V isits Requested Visits Authorized [id number] Closed Consult, Test & Treat 06/09/2023 06/08/2024 1 1 Encounter Details Date Type Department Care Team (Late st Contact Info) Description 06/09/2023 Telephone Cardiology at [address] [place] [address] Jaspreet Kinsey MD [facility] [place] [address] Social History Tobacco Use Types Packs/Day Years Used Date Smoking Tobacco: Never Smokeless Tobacco: Never Alcohol Use Standard Drinks/Week Comments Never 0 (1 standard drink = 0.6 oz pur e alcohol) [facility] Utilities Answer Date Recorded In the past [...] a care home (including now)? No 04/19/2023 DH IPV Inpatient [...] Havejean pierreo placed referral to cardiology at [facility] for further evaluation of what is termed [...] AM EDT Tech [place] [address] Channing Escobedo [place] 10/08/2023 9:30 AM EDT Office [place] [address] MD [facility] [place] [address] 10/21/2023 10:30 AM EDT Appointment Nuclear Medicine at [facility] [place] [address] Mary Reyes [facility] [place] [address] 10/21/2023 11:30 AM EDT Appointment Nuclear Medicine at [place] [phone] Mary Reyes [facility] [place] [address] 10/21/2023 12:30 PM EDT Appointment Nuclear Medicine at [place] [phone] Mary Reyes [facility] [place] [address] 10/21/2023 1:30 PM EDT Appointment [place] [address] Mary Reyes [facility] [place] [address] 10/21/2023 2:30 PM EDT Appointment [place] [address] Mary Reyes [facility] [place] [address] 10/26/2023 4:00 PM EDT Office Visit Cardiology at [address] [address] Jaspreet Kinsey MD [facility] [place] [address] 10/28/2023 9:00 AM EDT Office [place] [address] 10/29/2023 10:00 AM EDT Clinical Support [place] [address] 10/29/2023 10:15 AM EDT Procedure [place] [address] 11/01/2023 5:00 PM EDT Office Visit Gastroenterology at [place] [phone] Selene Browning, PhD [facility] DR PSYCH[place] [address] 11/22/2023 4:40 PM EDT Office Visit Cardiology at [address] [address] Porsha Mcdaniels MD [facility] [place] [address] 12/13/2023 10:00 AM EDT Clinical [place] [address] Lucero Romero, RD [facility] [place] [address] Scheduled Referrals Name Type Priority Associated Diagnoses Orde r Schedule Referral to Cardiology Outpatient Referral Routine Heart failure with preserved ejection fraction, unspecified HF chronicity Ordered: 06/09/2023 documented as of this encounter Visit Diagnoses Diagnosis Heart failure with preserved ejection fraction, unspecified HF chronicity documented in this encounter Care Teams Treasury Analyst Relationship Specialty Start Date End Date Polo Pearce PA [address] [place] [address] PCP - General Internal Medicine 06/09/21 documented as of this encounter
--- OUTSIDE RECORDS SUMMARY | 2023-10-05 17:05 | XMS_ITS | Encounter Summary ---
Author Organization Formerly [facility] Address [facility] [place] [address] Care Team Providers Care Pattern Molder Name Role Phone Polo Pearce Primary Care Provider [phone] Encounter Details Date Type Department Care Team (Latest Contact Info) Description 04/30/2023 Travel Social History Tobacco Use Types Packs/Day Years Used Date Smoking Tobacco: Never Smokeless Tobacco: Never Alcohol Use Standard Drinks/Week Comments Never 0 (1 standard drink = 0.6 oz pur e alcohol) [facility] Utilities Answer Date Recorded In the [...] in a mcc (including now)? No 04/19/2023 [facility] Inpatient Questions Answer Date [...] AM EDT Tech [place] [phone] Channing Escob[place] 10/08/2023 9:30 AM EDT Office [place] [address] MD [facility] [place] [address] 10/21/2023 10:30 AM EDT Appointment [place] [address] Mary Reyes SKID ADZER [facility] [place] [address] 10/21/2023 11:30 AM EDT Appoint[place] [address] Mary Reyes APRN [facility] [place] [address] 10/21/2023 12:30 PM EDT Appoint[place] [address] Mary Reyes, [place] [address] 10/21/2023 1:30 PM EDT Appointment [place] [address] [place] [address] 10/21/2023 2:30 PM EDT Appoint[place] [address] [place] [address] 10/26/2023 4:00 PM EDT Office Visit Cardiology at [address] [phone] Jaspreet Kinsey MD [facility] [place] [address] 10/28/2023 9:00 AM EDT Office Visit Gastro[place]ology [place] [address] 10/29/2023 10:00 AM EDT Clinical Support [place] [address] 10/29/2023 10:15 AM EDT Procedure visit Gastroenter[place] [address] 11/01/2023 5:00 PM EDT Office [place] [address] Selene Browning, PhD [facility] [place] [address] 11/22/2023 4:40 PM EDT Office Visit Cardiology at [address] [address] Porsha Mcdaniels MD [facility] [place] [address] 12/13/2023 10:00 AM EDT Clinical Support [place] [address] [facility] [place] [address] documented as of this encounter Visit Diagnoses Not on filedocumented in this encounter Care Teams Pattern Molder Relationship Specialty Start Date End Date Polo Pearce PA Sb MOTT [address] [place] [address] PCP - General Internal Medicine 06/09/21 documented as of this encounter
--- OUTSIDE RECORDS SUMMARY | 2023-10-05 17:05 | XMS_ITS | Encounter Summary ---
[place] [address] Care Team Providers Care Chemistry Tutor Name Role Phone Polo Pearce Primary Care Provider [phone] Reason for Visit * Diagnostic Test (Routine) - Closed Specialty Diagnoses / Procedures Referred By Jayant harris Referred To Contact Radiology Diagnoses Chest pain, unspecified type Procedures NM PET CT Cardiac Sarcoid Maegan Mike [facility] [address] [place] [address] [place] [address] Referral ID Status Reason Start Date Expiration Date V isits Requested Visits Authorized [id number] Closed Specialty Service Requested 04/22/2023 10/20/2024 4 4 Encounter Details Date Type Department Care Team (Latest Contact Info) Description 04/30/2023 11:02 AM EST - 04/30/2023 11:04 AM [facility] Hospital Encounter [place] [address] Maegan Mike [facility] [address] [place] [address] Discharge Disposition: Home Social History Tobacco Use Types Packs/Day Years Used Date Smoking Tobacco: Never Smokeless Tobacco: Never Alcohol Use Standard Drinks/Week Comments Never 0 (1 standard drink = 0.6 oz pur e alcohol) [facility] Utilities Answer Date Recorded In [...] nightly as needed. empagliflozin (Jardiance) 10 mg TabletIndications:Studio Grip neal heart failure with preserved ejection fraction Take 1 tablet by mouth daily. 90 tablet 1 06/11/2021 rOPINIRole (Requip) 1 mg Tablet Take 2 mg by mouth 2 times daily. 07/16/2020 loratadine (Claritin) 10 mg Tablet Take 10 mg by mouth daily as needed. fluticasone propionate (FLONASE) 50 mcg/actuation [place], Suspension 1 spray by Each Nare [...] AM EDT Tech [place] [address] Channing Escobedo [place] 10/08/2023 9:30 AM EDT Office Visit Vascular Surgery at [place] [phone] MD [facility] DR VASCULAR SURGERY [address] 10/21/2023 10:30 AM EDT Appointment Nuclear Medicine at [place] [phone] [place] [address] 10/21/2023 11:30 AM EDT Appointment Nuclear Medicine at [place] [phone] [place] [address] 10/21/2023 12:30 PM EDT Appointment [place] [address] [place] [address] 10/21/2023 1:30 PM EDT Appointment [place] [address] Mary Reyes [place] [address] 10/21/2023 2:30 PM EDT Appointment [place] [address] Mary Reyes [place] [address] 10/26/2023 4:00 PM EDT Office Visit Cardiology at [address] [address] Jaspreet Kinsey MD [facility] [address] [place] [address] 10/28/2023 9:00 AM EDT Office [place] [address] 10/29/2023 10:00 AM EDT Clinical [place] [address] 10/29/2023 10:15 AM EDT Procedure [place] [address] 11/01/2023 5:00 PM EDT Office [place] [phone] Selene Browning, PhD [facility] DR PSYCHIATRY DEPT [address] 11/22/2023 4:40 PM EDT Office Visit Cardiology at [address] [phone] Porsha Mcdaniels MD [facility] [address] [place] [address] 12/13/2023 10:00 AM EDT Clinical [place] [address] [facility] NUTRITION SERVICES [address] documented as of this encounter Procedures Procedure [...] who have questions please contact the health childcare worker that requested your imaging first. ? 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 Following IV administration of 26.5 mCi technetium 99m sestamibi, SPECT-CT of the heart was obtained. Following IV injection of 8.8 mCi 59-dhosku-2-deoxyglucose (FDG) and a standard uptake of approximately [...] obtained. Following IV injection of 8.8 mCi 87-tpxnln-0-deoxyglucose (FDG) and astandard uptake of approximately 60 [...] patients who have questions please contactthe health childcare worker that requested your imaging first. Maegan Mike [facility] IMG PET ORDERABLE S documented in this encounter Visit Diagnoses Not on filedocumented in this encounter Care Teams Chemistry Tutor Relationship Specialty Start Date End Date Polo Pearce PA [address] [place] [address] PCP - General Internal Medicine 06/09/21 documented as of this encounter
--- OUTSIDE RECORDS SUMMARY | 2023-10-05 17:05 | XMS_ITS | Encounter Summary ---
[place] [address] Care Team Providers Care Rapid Extractor Operator Name Role Phone Polo Pearce Primary Care Provider [phone] Reason for Referral * Diagnostic Test (Routine) - Authorized Specialty Diagnoses / Procedures Referred By Jayant harris Referred To Contact Diagnoses Mesenteric ischemia Procedures Duplex Study Visceral Arteries, Comp Mamie Marx APRN [facility] [place] [address] [facility] Vascular Lab [address] [place] [phone] Referral ID Status Reason Start Date Expiration Date Visits Requested Visits Authorized [id number] Authorized Specialty Service Requested 06/28/2023 06/27/2024 1 1 Encounter Details Date Type Department Care Team (Late st Contact Info) Description 06/28/2023 Orders Only Vascular Surgery at [address] [address] Mamie Marx APRN [facility] [place] [address] Mesenteric ischemia Social History Tobacco Use Types Packs/Day Years Used Date Smoking Tobacco: Never Smokeless Tobacco: Never Alcohol Use Standard Drinks/Week Comments Never 0 (1 standard drink = 0.6 oz pur e alcohol) [facility] Utilities Answer Date Recorded In [...] AM EDT Tech [place] [address] Channing Escobedo [place] 10/08/2023 9:30 AM EDT Office [place] [address] MD [facility] [place] [address] 10/21/2023 10:30 AM EDT Appointment [place] [address] Mary Reyes [facility] [place] [address] 10/21/2023 11:30 AM EDT Appointment [place] [address] [place] [address] 10/21/2023 12:30 PM EDT Appointment [place] [address] Mary Reyes [facility] [place] [place] [address] 10/21/2023 1:30 PM EDT Appointment [place] [address] Mary Reyes SPECIALTY TRIMMER [facility] [place] [address] 10/21/2023 2:30 PM EDT Appointment [place] [address] Mary Reyes [facility] [place] [place] [address] 10/26/2023 4:00 PM EDT Office Visit Cardiology at [address] [address] Jaspreet Kinsey MD [facility] [place] [address] 10/28/2023 9:00 AM EDT Office [place] [address] 10/29/2023 10:00 AM EDT Clinical [place] [address] 10/29/2023 10:15 AM EDT Procedure [place] [address] 11/01/2023 5:00 PM EDT Office [place] [phone] Selene Browning, [facility] [place] [address] 11/22/2023 4:40 PM EDT Office Visit Cardiology at [address] [phone] Porsha Mcdaniels MD [facility] [place] [address] 12/13/2023 10:00 AM EDT Clinical [place] [phone] [facility] [place] [address] documented as of this encounter Results * Duplex Study Visceral Arteries, Comp (08/03/2023 8:36 AM EDT) VB Text Report Department: Vascular Surgery Lab Patient: [id number] (ROHAN LOIDA) CPT: 48458 Referring Physician: MAMIE MARX ?? Phone: Indications: S/p SMA stenting (07/01) one month f/u, ? patency Findings: Unilateral ? Waveform ? PSV cm/s ??EDV cm/s ??Patent ?? Dary Visceral Aorta ? 71 ?14 ? Celiac Artery, Proximal ??[place]-Biphasic ? 100 ?22 ? Celiac Artery, Mid ? [place]-Biphasic ?99 ?19 ? Celiac Artery, Distal ?[place]-Biphasic ?94 ?18 ? Sup Mes Artery Proximal [...] within mesenteric artery stents may differ from [place] arteries, with thresholds for diagnosis of significant stenosis likely being somewhat higher in stented arteries than [place].% To date, there is no evidence based consensus of stent velocity criteria. Therefore, the current interpretation is based on [place] artery thresholds. Previous Celiac/Mesenteric Studies: Date ? [...] intestine documented in this encounter Care Teams Rapid Extractor Operator Relationship Specialty Start Date End Date Polo Pearce PA [address] [place] [address] PCP - General Internal Medicine 06/09/21 documented as of this encounter
--- OUTSIDE RECORDS SUMMARY | 2023-10-05 17:05 | XMS_ITS | Encounter Summary ---
Author Organization [facility] Address [facility] [place] [address] Care Team Providers Care Fur Dressing Supervisor Name Role Phone Polo Pearce Primary Care Provider [phone] Encounter Details Date Type Department Care Team [...] in a intermediate (including now)? No 04/19/2023 [facility] Inpatient Questions Answer Date Recorded Does [...] AM EDT Tech [place] [phone] Channing Escobedo [place] 10/08/2023 9:30 AM EDT Office [place] [address] MD [facility] [place] [place] [address] 10/21/2023 10:30 AM EDT Appointment [place] [address] Mary Reyes POSSUM TRAPPER [facility] [address] 10/21/2023 11:30 AM EDT Appointment [place] [address] Mary Reyes APRN [facility] [address] 10/21/2023 12:30 PM EDT Appointment [place] [address] Mary Reyes, [place] [address] 10/21/2023 1:30 PM EDT Appointment [place] [address] Mary [place] [address] 10/21/2023 2:30 PM EDT Appointment [place] [address] [place] [address] 10/26/2023 4:00 PM EDT Office Visit Cardiology at [address] [phone] Jaspreet Kinsey MD [facility] [place] [address] 10/28/2023 9:00 AM EDT Office [place] [address] 10/29/2023 10:00 AM EDT Clinical [place] [address] 10/29/2023 10:15 AM EDT Procedure [place] [address] 11/01/2023 5:00 PM EDT Office [place] [address] Selene Browning, PhD [facility] [place] [address] 11/22/2023 4:40 PM EDT Office Visit Cardiology at [address] [address] Porsha Mcdaniels MD [facility] [place] [address] 12/13/2023 10:00 AM EDT Clinical [place] [address] [facility] [place] [address] documented as of this encounter Visit Diagnoses Not on filedocumented in this encounter Care Teams Fur Dressing Supervisor Relationship Specialty Start Date End Date Polo Pearce PA Sb MOTT [address] [place] [address] PCP - General Internal Medicine 06/09/21 documented as of this encounter
--- OUTSIDE RECORDS SUMMARY | 2023-10-05 17:05 | XMS_ITS | Encounter Summary ---
Author Organization [facility] Address [facility] [address] Care Team Providers Care Heel Top Lift Splitter Name Role Phone Polo Pearce Primary Care Provider [phone] Encounter Details Date Type Department Care Team (Latest Contact Info) Description 06/22/2023 Travel Social History Tobacco Use Types Packs/Day Years Used Date Smoking Tobacco: Never Smokeless Tobacco: Never Alcohol Use Standard Drinks/Week Comments Never 0 (1 standard drink = 0.6 oz pur e alcohol) [facility] Utilities Answer Date Recorded [...] AM EDT Tech [place] [address] [place] Escob[place] 10/08/2023 9:30 AM EDT Office Visit [place] [address] MD [facility] DR [place] [address] 10/21/2023 10:30 AM EDT Appointment [place] [address] Mary Reyes MOLD WASHER [facility] [place] [address] 10/21/2023 11:30 AM EDT Appointment [place] [address] Mary Reyes APRN [facility] [place] [address] 10/21/2023 12:30 PM EDT Appointment [place] [address] Mary Reyes, [place] [address] 10/21/2023 1:30 PM EDT Appointment [place] [address] Mary [place] [address] 10/21/2023 2:30 PM EDT Appointment [place] [address] [place] [address] 10/26/2023 4:00 PM EDT Office Visit Cardiology at [address] [phone] Jaspreet Kinsey MD [facility] [place] [address] 10/28/2023 9:00 AM EDT Office Visit [place] [address] 10/29/2023 10:00 AM EDT Clinical Support [place] [address] 10/29/2023 10:15 AM EDT Procedure visit [place]astro[place] [address] 11/01/2023 5:00 PM EDT Office Visit [place] [address] Selene Browning, PhD [facility] DR PS[place] [address] 11/22/2023 4:40 PM EDT Office Visit Cardiology at [address] [phone] Porsha Mcdaniels MD [facility] [place] [address] 12/13/2023 10:00 AM EDT Clinical Support [place] [address] [facility] [place] [address] documented as of this encounter Visit Diagnoses Not on filedocumented in this encounter Care Teams Heel Top Lift Splitter Relationship Specialty Start Date End Date Polo Pearce PA Sb MOTT [address] [address] PCP - General Internal Medicine 06/09/21 documented as of this encounter
--- OUTSIDE RECORDS SUMMARY | 2023-10-05 17:05 | XMS_ITS | Encounter Summary ---
[place] [address] Care Team Providers Care Stove Mechanic Name Role Phone Polo Pearce Primary Care Provider [phone] Reason for Visit * Diagnostic Test (Routine) - Closed Specialty Diagnoses / Procedures Referred By Jayant ahrris Referred To Contact Radiology Diagnoses Chest pain, unspecified type Procedures NM PET CT Cardiac Sarcoid Maegan Mike [facility] [place] [address] [place] [address] Referral ID Status Reason Start Date Expiration Date V isits Requested Visits Authorized [id number] Closed Specialty Service Requested 04/22/2023 10/20/2024 4 4 Encounter Details Date Type Department Care Team (Latest Contact Info) Description 04/30/2023 11:05 AM EST - 04/30/2023 11:59 PM EST Hospital Encounter [place] [address] Maegan Mike [facility] [place] [address] Discharge Disposition: Home Social History Tobacco Use Types Packs/Day Years Used Date Smoking Tobacco: Never Smokeless Tobacco: Never Alcohol Use Standard Drinks/Week Comments Never 0 (1 standard drink = 0.6 oz pur e alcohol) [facility] Utilities Answer Date Recorded In [...] in a fdc (including now)? No 04/19/2023 [facility] Inpatient [...] nightly as needed. empagliflozin (Jardiance) 10 mg TabletIndications:Presidential Support Specialist neal heart failure with preserved ejection fraction Take 1 tablet by mouth daily. 90 tablet 1 06/11/2021 rOPINIRole (Requip) 1 mg Tablet Take 2 mg by mouth 2 times daily. 07/16/2020 loratadine (Claritin) 10 mg Tablet Take 10 mg by mouth daily as needed. fluticasone propionate (FLONASE) 50 mcg/actuation [place], Suspension 1 spray by Each Nare route [...] AM EDT Tech [place] [address] Channing Escobedo [place] 10/08/2023 9:30 AM EDT Office Visit Vascular Surgery at [place] [phone] MD [facility] DR VASCULAR [place] [address] 10/21/2023 10:30 AM EDT Appointment Nuclear Medicine at [place] [phone] [place] [address] 10/21/2023 11:30 AM EDT Appointment Nuclear Medicine at [place] [phone] [place] [address] 10/21/2023 12:30 PM EDT Appointment [place] [address] [place] [address] 10/21/2023 1:30 PM EDT Appointment [place] [address] Mary Reyes [facility] [place] [address] 10/21/2023 2:30 PM EDT Appointment [place] [address] Mary Reyes [facility] [place] [address] 10/26/2023 4:00 PM EDT Office Visit Cardiology at [address] [address] Jaspreet Kinsey MD [facility] [place] [address] 10/28/2023 9:00 AM EDT Office [place] [address] 10/29/2023 10:00 AM EDT Clinical [place] [address] 10/29/2023 10:15 AM EDT Procedure [place] [address] 11/01/2023 5:00 PM EDT Office [place] [phone] Selene Browning, PhD [facility] DR PSYCHIATRY [place] [address] 11/22/2023 4:40 PM EDT Office Visit Cardiology at [address] [phone] Porsha Mcdaniels MD [facility] [place] [address] 12/13/2023 10:00 AM EDT Clinical Support [place] [address] [facility] NUTRITION [place] [address] documented as of this encounter Procedures Procedure [...] who have questions please contact the health resident care director that requested your imaging first. ? 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 Following IV administration of 26.5 mCi technetium 99m sestamibi, SPECT-CT of the heart was obtained. Following IV injection of 8.8 mCi 91-gxzffo-7-deoxyglucose (FDG) and a standard uptake of approximately [...] obtained. Following IV injection of 8.8 mCi 19-elwvri-5-deoxyglucose (FDG) and astandard uptake of approximately 60 [...] patients who have questions please contactthe health resident care director that requested your imaging first. Maegan Mike PLASTER PATTERN CASTER IMG PET ORDERABLE S documented in this encounter Visit Diagnoses Not on filedocumented in this encounter Care Teams Stove Mechanic Relationship Specialty Start Date End Date Polo Pearce PA [address] [place] [address] PCP - General Internal Medicine 06/09/21 documented as of this encounter
--- OUTSIDE RECORDS SUMMARY | 2023-10-05 17:05 | XMS_ITS | Encounter Summary ---
[place] [address] Care Team Providers Care Animal Skinner Name Role Phone Polo Pearce Primary Care Provider [phone] Reason for Visit * Diagnostic Test (Routine) - Closed Specialty Diagnoses / Procedures Referred By Jayant harris Referred To Contact Radiology Diagnoses Chest pain, unspecified type Procedures NM PET CT Cardiac Sarcoid Maegan Mike [facility] [place] [address] [place] [address] Referral ID Status Reason Start Date Expiration Date V isits Requested Visits Authorized [id number] Closed Specialty Service Requested 04/22/2023 10/20/2024 4 4 Encounter Details Date Type Department Care Team (Latest Contact Info) Description 04/30/2023 11:05 AM EST Hospital Encounter [place] [address] Maegan Mike [facility] [place] [address] Discharge Disposition: Home Social History [...] in a snf (including now)? No 04/19/2023 DH IPV Inpatient [...] nightly as needed. empagliflozin (Jardiance) 10 mg TabletIndications:French Edge Operator neal heart failure with preserved ejection fraction Take 1 tablet by mouth daily. 90 tablet 1 06/11/2021 rOPINIRole (Requip) 1 mg Tablet Take 2 mg by mouth 2 times daily. 07/16/2020 loratadine (Claritin) 10 mg Tablet Take 10 mg by mouth daily as needed. fluticasone propionate (FLONASE) 50 mcg/actuation [place], Suspension 1 spray by Each Nare route [...] AM EDT Tech [place] [address] Channing Escobedo [place] 10/08/2023 9:30 AM EDT Office [place] [address] MD [facility] [place] [address] 10/21/2023 10:30 AM EDT Appointment Nuclear Medicine at [place] [phone] Mary Reyes [facility] [place] [address] 10/21/2023 11:30 AM EDT Appointment Nuclear Medicine at [address] Mary Reyes [facility] [place] [address] 10/21/2023 12:30 PM EDT Appointment [place] [address] Mary Reyes [facility] [place] [address] 10/21/2023 1:30 PM EDT Appointment [place] [address] Mary Reyes [facility] [place] [address] 10/21/2023 2:30 PM EDT Appointment [place] [address] Mary Reyes [facility] [place] [address] 10/26/2023 4:00 PM EDT Office Visit Cardiology at [address] [place] [address] Jaspreet Kinsey MD [facility] [place] [address] 10/28/2023 9:00 AM EDT Office [place] [address] 10/29/2023 10:00 AM EDT Clinical [place] [address] 10/29/2023 10:15 AM EDT Procedure [place] [address] 11/01/2023 5:00 PM EDT Office [place] [phone] Selene Browning, PhD [facility] [place] [address] 11/22/2023 4:40 PM EDT Office Visit Cardiology at [address] [phone] Porsha Mcdaniels MD [facility] [place] [address] 12/13/2023 10:00 AM EDT Clinical [place] [phone] [facility] [place] [address] documented as of this encounter Procedures Procedure [...] mCi documented in this encounter Care Teams Animal Skinner Relationship Specialty Start Date End Date Polo Pearce PA [address] [place] [address] PCP - General Internal Medicine 06/09/21 documented as of this encounter
--- OUTSIDE RECORDS SUMMARY | 2023-10-05 17:05 | XMS_ITS | Encounter Summary ---
[place] [address] Care Team Providers Care Egg Breaking Machine Operator Name Role Phone Polo Pearce Primary Care Provider [phone] Reason for Referral * Diagnostic Test (Routine) - Closed Specialty Diagnoses / Procedures Referred By Jayant harris Referred To Contact Radiology Diagnoses Chest pain, unspecified type Procedures NM PET CT Cardiac Sarcoid Maegan Mike APRN [facility] [place] [address] [place] [address] Referral ID Status Reason Start Date Expiration Date V isits Requested Visits Authorized [id number] Closed Specialty Service Requested 04/22/2023 10/20/2024 4 4 Reason for Visit * Auth/Cert (Routine) Specialty Diagnoses / Procedures Referred By Jayant harris Referred To Contact Diagnoses NSTEMI (non-ST elevated myocardial infarction) NSTEMI Procedures ER Terrence Pantoja MD [facility] [place] [address] [facility] Referral ID Status Reason Start Date Expiration Date Visits Re quested Visits Authorized [id number] 1 1 Encounter Details Date Type Department Care Team (Latest Contact Info) Description 04/16/2023 11:15 PM EST - 04/22/2023 5:15 PM EST Hospital Encounter Heart and Vascular Unit Level 4 Wing B at [facility] [place] [address] Jose Gallegos MD [facility] [place] [address] Ailyn Knight MD [facility] [place] [place] [address] Terrence Maloney MD [facility] [place] [address] Eufemia Copeland MD [facility] [place] [address] Chest pain, unspecified type; Non-ST elevation myocardial [...] In the past 12 months has [employer], gas, oil, or water [employer] threatened to shut off services in your [...] Loida Madrigal Patient Age: 53 y.o. Language: Divehi Admit date: 04/16/2023 Discharge date and time: [...] and SVT ablation on 04/01/[address] oTvar, paroxysmal A-fib (diagnosed on 10/20/2022), HFpEF, pulmonary emboli on Eliquis, and restrictive lung disease secondary to obesity transferred from [facility] for further evaluation of exertional chest pressure and breathlessness. Abnormal OSH troponin 500 and repeat HS Trop at [facility] peak 27 with flat trend and elevated [...] discharge Inpatient Provider Contact Information: Cardiovascular Medicine [phone] Discharge Diagnoses (Hospital Problems) and Secondary Diagnoses [...] motion has increased. CTA PE protocol at [facility]- no PE but showed small pericardial effusion and some GG opacities. History of Presentation: Loida Madrigal is a 53 y.o. with hx of paroxysmal A-fib (diagnosed on 10/20/2022), pulmonary emboli on Eliquis, HFpEF (EF of 59%), supraventricular tachycardia (AVNRT since 06/2021) s/p EPS and SVTablation on 1/25/[address] Tovar on [facility], restrictive lung disease secondary to obesity presents from [facility] with complains of chest discomfort that started overnight. The patient has been experiencing ongoing chest pain, prompting admission on 02/11/23 primarily due to concerns about a NSTEMI indicated by elevated troponin levels and EKG changes noted at OSH. However, the observed EKG changes remained largely consistent with previous recordings. Troponin levels at [facility] showed a plateau at 23 > 27. [...] again 10/15, improving with sublingua Nitro. At [facility] Vitals: HR 48, BP 115/42, O2 [...] #Acute on chronic HFpEF Patient presented to [facility] on 04/16 with chest pain responsive to SL NTG. Troponin ~500x2. Transferredto [facility] further [facility]. Troponin at [facility], 24>23 w/ repeat peak 27->26. She [...] 9:40 AM Jaspreet Kinsey MD Cardiology at [place] Arrive at: [facility] [address] [phone] 09/21/2023 3:00 PM Jaspreet Kinsey MD Cardiology at [place] Arrive at: [facility] [address] [phone] Discharge References/Attachments None Greater than 30 minutes was spent on this discharge including documentation, [id number] time withthe patient, patient education, computerized mill recorder, coordination with pharmacy and other [...] away. Stay on the phone. The emergency gravure press operator will tell you what to do. [...] of 8AM-5PM please call the Cardiology Clinic [phone] to speak with a nurse. All other hours please call the Hospital Junior Business Analyst [phone] and ask to speak to the area mechanic on-call. Return to work: One week Follow up Appointments: Doctor Where Phone # Date Time PCP JOCY Franco [address] [place] [address] 04/28/2023 7:[address] Kinsey [facility] [address] 05/10/2023 9:40 AM * Attachments The following attachments cannot be sent through Care Everywhere. * Coronary Angiogram: Post-op (Divehi) documented in this encounter Medications at Time [...] nightly as needed. empagliflozin (Jardiance) 10 mg TabletIndications:Wildlife Officer neal heart failure with preserved ejection fraction [...] reviewed with pt, pt wheeled to d/c [facility]. I agree with the information in this [...] note were not included. CARDIOLOGY APP1 - [facility] DAILY PROGRESS NOTE Page [phone] to reach a provider 28/09 Admit Date: [...] 12 CRP <=4.9 mg/L <3.0 <3.0 OSH [facility] troponin ~500. Telemetry: I have personally [...] disease secondary to obesity who presented to [facility] on 04/16 with chest pain responsive to SL NTG. Troponin ~500x2. Transferred to [facility] for further evaluation. Troponin at [facility], 24>23. Reports exertional chest pressure and [...] Score: 24 PT: OT: PCP JOCY Franco [phone] Discussed with MD Kurt Ray PA-C APP1 pager [phone] 04/22/2023 CV HOSPITALIST ADDENDUM Date of Service: [...] 04/21/2023 6:10 PM EST CARDIOLOGY APP1 - [facility] DAILY PROGRESS NOTE Page [phone] to reach a provider 28/09 Admit Date: [...] 12 CRP <=4.9 mg/L <3.0 <3.0 OSH [facility] troponin ~500. Telemetry: I have personally [...] disease secondary to obesity who presented to [facility] on 04/16 with chest pain responsive to SL NTG. Troponin ~500x2. Transferred to [facility] for further evaluation. Troponin at [facility], 24>23. Reports exertional chest pressure and [...] and no pericardial effusion. She underw ent [facility] on 04/18 which showed non-obstructive ASCVD. Unclear [...] occur Diet: Daily Healthy Menu Choices/Cardiac diet ([facility]-Diet) 2 GM NA DVT Prophylaxis: DOAC Code status: Attempt Cardiopulmonary Resuscitation - Inpatient Disposition: Discharge Location: AM-PAC Basic Mobility Raw Score: 22 PT: OT: PCP JOCY Franco [phone] * Eufemia Copeland MD - 04/20/2023 4:34 PM EST CARDIOLOGY APP1 - [facility] DAILY PROGRESS NOTE Page [phone] to reach a provider 28/09 Admit Date: [...] 12 CRP <=4.9 mg/L <3.0 <3.0 OSH [facility] troponin ~500. Telemetry: I have personally [...] disease secondary to obesity who presented to [facility] on 04/16 with chest pain responsive to SL NTG. Troponin ~500x2. Transferred to [facility] for further evaluation. Troponin at [facility], 24>23. Reports exertional chest pressure and [...] and no pericardial effusion. She underw ent [facility] on 04/18 which showed non-obstructive ASCVD. Unclear [...] occur Diet: Daily Healthy Menu Choices/Cardiac diet ([facility]Diet) 2 GM NA; 2000 mL FLUID DVT Prophylaxis: DOAC Code status: Attempt Cardiopulmonary Resuscitation - Inpatient Disposition: Discharge Location: AM-[facility] Basic Mobility Raw Score: 24 PT: OT: PCP JOCY Franco [phone] * Carrol La PA - 04/19/2023 12:32 PM EST CARDIOLOGY APP1 - [facility] DAILY PROGRESS NOTE Page [phone] to reach a provider 28/09 Admit Date: [...] 12 CRP <=4.9 mg/L <3.0 <3.0 OSH [facility] troponin ~500. EKG: Sinus bradycardia, 47 bpm, PAC, possible left atrial enlargement, possible lateral infarct, QTc 511. Telemetry: I have personally reviewed and interpreted the telemetry from the last 24 hours. Resultsshow sinus bradycardia with HR 50s, PVCs, heart rate climbs to 70s with activity.. Imaging: [facility] 04/18/23 Conclusions: * Nonobstructive coronary artery disease [...] motion has increased. CTA PE protocol at [facility]- no PE but showed small pericardial [...] acute aortopathy. 4. No acute pulmonary findings. [facility] 06/09/2021-RA 4, PA 38/15 (24) PCWP 11, CO/CI 3.14/1.6. [facility] 08/30/2019-normal coronary arteries. Assessment & Plan: Loida [...] disease secondary to obesity who presented to [facility] on 04/16 with chest pain responsive to SL NTG. Troponin ~500x2. Transferred to [facility] for further evaluation. Troponin at [facility], 24>23. Reports exertional chest pressure and [...] # Hx of PE- Eliquis as above #MRAYLOU- auto titrate CPAP ordered. # Migraine- uses [...] continues. Diet: Daily Healthy Menu Choices/Cardiac diet ([facility]Diet) 2 GM NA; 2000 mL FLUID DVT Prophylaxis: DOAC Code status: Attempt Cardiopulmonary Resuscitation - Inpatient Disposition: Discharge Location: AM-[facility] Basic Mobility Raw Score: 24 PT: OT: PCP JOCY Franco [phone] Discussed with MD Carrol Aly PA-C APP1 Pager: [phone] 04/19/2023 * Nikkie Lew RCP - 04/18/2023 [...] nocturnal use as tolerated NIKKIE LEW RCP EI * Kurt Silveira PA - 04/18/2023 8:27 AM EST Images from the original note were not included. CARDIOLOGY APP1 - [facility] DAILY PROGRESS NOTE Page [phone] to reach a provider 28/09 Admit Date: [...] breathlessness. Awaiting cardiac catheterization potentially today if Motorized Squad Commanding Officer availability allows.She remains on ACS therapies. Medications: [...] motion has increased. CTA PE protocol at [facility]- no PE but showed small pericardial [...] lung disease secondary to obesity presents from [facility] with complains of exertional chest pressure [...] ongoing chest pain -C 04/18 depending on Motorized Squad Commanding Officer availability. #Hx of pAfib #Hx of AVNRT [...] Resuscitation - Inpatient Disposition: Discharge Location: AM-[facility] Basic Mobility Raw Score: 24 PT: OT: PCP JOCY Franco [phone] Discussed with MD Kurt Sheppard PA-C APP1 pager [phone] 04/18/2023 * Kurt Silveira PA - 04/17/2023 7:15 AM EST Images from the original note were not included. CARDIOLOGY APP1 - [facility] DAILY PROGRESS NOTE Page [phone] to reach a provider 28/09 Admit Date: [...] 12 CRP <=4.9 mg/L <3.0 <3.0 OSH [facility] troponin ~500. EKG: Sinus bradycardia, 47 [...] motion has increased. CTA PE protocol at [facility]- no PE but showed small pericardial [...] PA 38/15 (24) PCWP 11, CO/CI 3.14/1.6. [facility] 08/30/2019-normal coronary arteries. Assessment & Plan: Loida [...] lung disease secondary to obesity presents from [facility] with complains of exertional chest pressure [...] pain -C 04/18 or 04/19 depending on Motorized Squad Commanding Officer availability. #Hx of pAfib #Hx of AVNRT sp EPS and Ablation - hold eliquis. Last taken on 04/16/23 am. - Continue IV heparin. # Hx of PE- continue with IV heparin Diet: No diet orders on file DVT Prophylaxis: DOAC Code status: Attempt Cardiopulmonary Resuscitation - Inpatient Disposition: Discharge Location: AM-[facility] Basic Mobility Raw Score: 14 PT: OT: PCP JOCY Franco [phone] Discussed with MD Kurt Sheppard PA-C APP1 pager [phone] 04/17/2023 documented in this encounter H&P Notes [...] SVTablation on 04/01/[address] Tovar on [facility], restrictive lung disease secondary to obesity presents from [facility] with complains of chest discomfort that started overnight. The patient has been experiencing ongoing chest pain, prompting admission on 02/11/23 primarily due to concerns about a NSTEMI indicated by elevated troponin levels and EKG changes noted at OSH. However, the observed EKG changes remained largely consistent with previous recordings. Troponin levels at [facility] showed a plateau at 23 > 27. [...] again 10/15, improving with sublingua Nitro. 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 Tovar on [facility], restrictive lung disease secondary to obesity presents from [facility] with complains of chest discomfort that [...] if hypotensive / cardiogenic shock / inferior RI / sildenafil within past 24 hours) - [...] (see comments), grab bar - tub/shower (CPAP [facility]) DME Needed at Discharge: N/A Patient is insured through: Primary Insurance: [employer] [place] Payor: [employer] [place] / Plan[place] / Product Type: *No Product type* / Secondary Insurance: N/A Prescription Coverage: Yes This plan was formulated with input from patient and team. All are in agreement with plan. * Consult Note - Maegan Mike APRN - 04/22/2023 10:38 AM EST Images from the original note were not included. [facility] [place] [address] INPATIENT CARDIOLOGY CONSULT PROGRESS NOTE Interval events: [...] with MD Maegan De Leon, ROM Pager [phone] 04/22/2023 Associated attestation - Jaspreet Kinsey MD [...] Tatum MSW - 04/20/2023 2:22 PM EST AUDIENCE COORDINATOR received a consult to support patient with financial concerns. AUDIENCE COORDINATOR met with patient and introduced self. Patient stated due to hospitalization, she has been out of work and feeling stress around not being able to pay bills. I have a car payment and other bills and it's like I have to choose which one to pay and which one not to pay. AUDIENCE COORDINATOR validated patient's stress around financial concerns. AUDIENCE COORDINATOR asked patient if she has applied for [place] [employer] or any other state benefits. Patient stated that she has, but is over the household income criteria to qualify for benefits. Patient shared that she owns her home outright and mainly concerned about making her car payment and transportation home. MSWstated that care management will help arrange for a ride, if needed. AUDIENCE COORDINATOR provided patient with community resources such as the [employer], the [facility] Community Action phone number, and the [facility] [place] on Aging contact info. AUDIENCE COORDINATOR available to support patient should anything else [...] Admitted From: Transfer from another hospital Location: [facility] Reason for Hospitalization: chest pain and cough Covid Vaccination Status: 1st, 2nd & booster Last COVID test: Lab Results Component Value Date [id number] Not Detected 06/13/2021 Past medical History: Past [...] In the past 12 months has the Business Exchange, gas, oil, or water [employer] threatened to shut off services in your home?: Yes ([facility] is currently threatening to shut off electricity [...] Home Address confirmed as: [address] [facility] [address] Social & Family Supports: All names listed below confirmed with patient as current and correct Extended Emergency Contact Information Primary Emergency Contact: Boby Madrigal Wugly Relation: Spouse Secondary Emergency Contact: TALI SHAH [...] Specific Information: N/A Health/Prescription Coverage: Primary Insurance: [employer] [facility] [place] Payor: [employer] [facility] [place] / Plan: [place] EX[place]ANGE / Product Type: *No Product type* / Secondary Insurance: N/A ; Prescription Coverage: Yes Preferred Pharmacy: [id number] - [place], [place] - [address] [facility] [address] [facility] [address] [facility] - [place], [place] - [address] [facility] [address] [facility] [address] [facility] [address] [place] Status: Patient is a : No Primary Care Provider confirmed: JOCY Franco [phone] Patient/Caregiver Goals of Treatment: home w / family when MR Potential Needs for Transition of Care: other (see comments) (AUDIENCE COORDINATOR support; pt's spouse was denied twice for [...] Concerns to be Addressed: financial/insurance, discharge planning; AUDIENCE COORDINATOR consult placed to discuss available resources Assessment: Patient is admitted to [facility] service for NSTEMI Plan: pending clinical [...] included. [facility] [place] [address] INPATIENT CARDIOLOGY CONSULT NOTE Reason for Consult: [...] ACS with DAPT and heparin prior to [facility] 04/18, which was negative for any obstructive [...] Went to cathlab, came back ~1115am, s/p [facility] with no coronary artery disease seen. Right [...] for further details. JOCY Marie 04/17/2023 Pager [phone] * Plan of Care - Sudhakar Smith [...] AM EDT Tech [place] [address] [place] 10/08/2023 9:30 AM EDT Office Visit [place] [address] MD [facility] [place] [address] 10/21/2023 10:30 AM EDT Appointment [place] [address] Mray Reyes APRN [facility] [address] 10/21/2023 11:30 AM EDT Appointment Nuclear Medicine at [place] [phone] Mary Reyes [facility] [address] 10/21/2023 12:30 PM EDT Appointment [place] [address] Mary Reyes [facility] [place] [address] 10/21/2023 1:30 PM EDT Appointment [place] [address] Mary Reyes [facility] [place] [address] 10/21/2023 2:30 PM EDT Appointment [place] [address] [place] [address] 10/26/2023 4:00 PM EDT Office Visit Cardiology at [address] [phone] Jaspreet Kinsey MD [facility] [place] [address] 10/28/2023 9:00 AM EDT Office [place] [address] 10/29/2023 10:00 AM EDT Clinical Support [place] [address] 10/29/2023 10:15 AM EDT Procedure visit [place] [address] 11/01/2023 5:00 PM EDT Office Visit [place] [phone] Selene Browning, PhD [facility] [place] [address] 11/22/2023 4:40 PM EDT Office Visit Cardiology at [address] [phone] Porsha Mcdaniels MD [facility] [place] [address] 12/13/2023 10:00 AM EDT Clinical Support [place] [address] Lucero Romero, ALVA [facility] [place] [address] documented as of this encounter Procedures Procedure [...] who have questions please contact the health healthcare corporate account director that requested your imaging first. ? 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 Following IV administration of 26.5 mCi technetium 99m sestamibi, SPECT-CT of the heart was obtained. Following IV injection of 8.8 mCi 74-enoxtu-8-deoxyglucose (FDG) and a standard uptake of approximately [...] obtained. Following IV injection of 8.8 mCi 49-neythu-3-deoxyglucose (FDG) and astandard uptake of approximately 60 [...] patients who have questions please contactthe health healthcare corporate account director that requested your imaging first. Electronically signed by: Humberto Qureshi MD, [facility]([phone]), at 05/06/2023 11:09 AM Maegan Mike CUSHION SEWER IMG PET ORDERABLE S * MRI Cardiac [...] who have questions please contact the health healthcare corporate account director that requested your imaging first. ? [...] patients who have questions please contactthe health healthcare corporate account director that requested your imaging first. Terrence Maloney MD IMG MRI ORDERABLES * Hemogram (04/21/2023 3:40 AM EST) WBC 7.1 4.0 - 9.5 x10(3)/[facility] LABORATORY RBC 4.59 4.00 - 5.21 x10(6)/[facility] LABOR[facility]ORY Hemoglobin 14.4 11.7 - 15.5 g/dL [facility] Hematocrit 43.0 35.7 - 45.8 % [facility] MCV 93.7 82.6 - 94.4 [facility] LABORATORY MCH 31.4 27.1 - 32.0 pg [facility] MCHC 33.5 31.7 - 35.0 g/dL [facility] Platelets 221 145 - 357 x10(3)/[facility] LABORATORY RDWSD 43.5 37.0 - 46.0 [facility] LABORATORY RDWCV 12.6 11.5 - 14.1 % [facility] MPV 11.1 7.6 - 12.9 [facility] LABORATORY nRBC % Auto 0.0 % [facility] nRBC Abs Auto 0.000 0.000 - 0.000 x10(3)/[facility] LABORATORY Blood 04/21/2023 3:40 AM EST 04/21/2023 3:58 AM EST Narrative Resulting Agency Comment Spec In Lab Ailyn Knight MD HEMATOLOGY ORDERABLE S [facility] [place] [address] * (ABNORMAL) BMP w/fasting Glucose (04/21/2023 3:40 [...] of Diabetes Mellitus, Position Statement from the [place] [employer]. ??Diabetes Care, Volume 33, Supplement [...] Knight MD CHEMISTRY ORDERABLES Performing Organization Address City/[facility]/ZIP Co de Phone Number [facility] [place] [address] * Magnesium (04/21/2023 3:40 AM EST) Magnesium 0.90 0.69 - 1.07 mmol/L [facility] Blood 04/21/2023 3:40 AM EST 04/21/2023 3:58 AM EST Narrative Resulting Agency Comment Spec In Lab Ailyn Knight MD CHEMISTRY ORDERABLES Performing Organization Address City/[facility] Co de Phone Number [facility] [place] [address] * (ABNORMAL) Troponin (04/20/2023 4:44 PM EST) Troponin-T HS 26(H) <=14 ng/L [facility] Comment: This patient's troponin T [...] troponin value can be found in the [facility] Test Catalog Troponin - [facility] Test Catalog Reference: Fourth [place] Definition of Myocardial Infarction. Journal of the [place] College of [employer]iology 2018;72:2639-7388 Blood 04/20/2023 4:44 PM EST 04/20/2023 4:53 PM EST Narrative Resulting Agency Comment Spec In Lab Eufemia Copeland MD CHEMISTRY ORDERABL ES [facility] [place] [id number] * Duplex for DVT, Arm, Unilat (04/20/2023 4:22 PM EST) VB Text Report Department: Vascular Surgery Lab Patient: [id number] (LOIDA MADRIGAL) CPT: 19121 Referring Physician: TERRENCE MALONEY ?? Phone: Indications: [...] PM EST) Troponin-T HS 27(H) <=14 ng/L [facility] Comment: This patient's troponin T [...] troponin value can be found in the [facility] Test Catalog Troponin - [facility] Test Catalog Reference: [place] Definition of Myocardial Infarction. Journal of the [place] [employer] 2018;72:5780-4141 Blood 04/20/2023 1:47 PM EST 04/20/2023 2:18 PM EST Narrative Resulting Agency Comment Spec In Lab Eufemia Copeland MD CHEMISTRY ORDERABL ES Performing Organization Address City/[facility]/ZIP Co de Phone Number [facility] [place] [address] * (ABNORMAL) Troponin (04/20/2023 10:48 AM EST) Troponin-T HS 24(H) <=14 ng/L [facility] Comment: This patient's troponin T [...] troponin value can be found in the [facility] Test Catalog Troponin - [facility] Test Catalog Reference: [place] Definition of Myocardial Infarction. Journal of the [place] [employer] 2018;72:2257-5194 Blood 04/20/2023 10:4 8 AM EST 04/20/2023 11:03 AM EST Narrative Resulting Agency Comment Spec In Lab Eufemia Copeland MD CHEMISTRY ORDERABL ES [facility] [place] [address] * EKG 12 Lead (04/20/2023 10:23 AM EST) Ventricular rate 60 BPM MUSE SYSTEM Atrial Rate 60 BPM MUSE SYSTEM P-R Interval 170 ms MUSE SYSTEM QRS Duration 86 ms MUSE SYSTEM Q-T Interval 470 ms MUSE SYSTEM QTC Calculated (Bezet) 470 ms MUSE SYSTEM Calculated P [place] 39 degrees MUSE SYSTEM Calculated R [place] 63 degrees MUSE SYSTEM Calculated T [place] -16 degrees MUSE SYSTEM INTERPRETATION Normal sinus [...] leads Confirmed by MD Eli, Manish [place] ([id number]) on 04/22/2023 12:10:07 PM MUSE SYSTEM 04/20/2023 10:2 3 AM EST 04/22/2023 12:10 PM EST Terrence Maloney MD ECG ORDERABLES MUSE SYSTEM * Hemogram (04/20/2023 3:11 AM EST) WBC 6.6 4.0 - 9.5 x10(3)/[facility] LAB[facility]AT[facility] RBC 4.59 4.00 - 5.21 x10(6)/[facility] Hemoglobin 14.2 11.7 - 15.5 g/dL [facility] Hematocrit 42.7 35.7 - 45.8 % [facility] MCV 93.0 82.6 - 94.4 fL [facility] MCH 30.9 27.1 - 32.0 pg [facility] MCHC 33.3 31.7 - 35.0 g/dL [facility] Platelets 231 145 - 357 x10(3)/[facility] LAB[facility]ORY RDWSD 43.6 37.0 - 46.0 fL [facility] RDWCV 12.6 11.5 - 14.1 % [facility] MPV 11.0 7.6 - 12.9 fL [facility] nRBC % Auto 0.0 % [facility] nRBC Abs Auto 0.000 0.000 - 0.000 x10(3)/[facility] Blood 04/20/2023 3:11 AM EST 04/20/2023 3:24 AM EST Narrative Resulting Agency Comment Spec In Lab Ailyn Knight MD HEMATOLOGY ORDERABLE S [facility] [place] [address] * (ABNORMAL) BMP w/fasting Glucose (04/20/2023 3:11 [...] of Diabetes Mellitus, Position Statement from the [place] [employer]. ??Diabetes Care, Volume 33, Supplement [...] Knight MD CHEMISTRY ORDERABLES Performing Organization Address City/[facility] Co de Phone Number [facility] [place] [address] * Magnesium (04/20/2023 3:11 AM EST) Pathologist [facility] Magnesium 0.91 0.69 - 1.07 mmol/L [facility] Blood 04/20/2023 3:11 AM EST 04/20/2023 3:24 AM EST Narrative Resulting Agency Comment Spec In Lab Ailyn Knight MD CHEMISTRY ORDERABLES Performing Organization Address [facility] Co de Phone Number [facility] [place] [address] * Respiratory Panel PCR (04/19/2023 2:05 PM EST) Pathologist [facility] Resp Panel Source POLICE CADET Swab MA RY [facility] Resp Panel PCR Negative Negative [facility] Comment: Respiratory Panels are performed on the Taskdoer, using multiplexed PCR nucleic acid detection. ??Negative [...] performed using the BioFire Respiratory Panel 2.1 (Feidee) as authorized by the FDA issued Emergency Use Authorization (EUA). This panel also tests for multiple other viral and bacterial pathogens. This assay is intended for In-vitro Diagnostic (IVD) use with nasopharyngeal swabs in viral transport media. The assay is performed based on the instructions for use and additional guidance provided by the FDA. Testing is performed in laboratories within the [facility], each of which is certified under the [...] fact sheets at the following FDA website: https://www.fda.gov/medical-devices/xapkdlatcci-sdexkzn-4683-ukhtf-58-pymrcognl- use-a dinyjhgcycubp-clucdfs-nsyedmb/ghdfc-uosnwmjjdzy-fwlz Human Metapneumovirus Not Detected Not Detected NORTH [...] - GENER AL ORDERABLES Performing Organization Address City/[facility] Co de Phone Number [facility] [place] [address] * (ABNORMAL) Urine culture (04/19/2023 10:25 AM EST) Urine Culture 10,000-49,000 cfu/ml mixed mucosal elmer Note: Culture shows multiple bacterial species suggesting mucosal contamination. (A) [facility] Clean Catch Urine 04/19/2023 10:25 AM EST 04/19/2023 12:49 PM EST Narrative Resulting Agency Comment Spec In Lab Carrol SANDRA MICROBIOLOGY - GENER AL ORDERABLES [facility] [place] [address] * (ABNORMAL) Urinalysis Microscopic Exam (04/19/2023 10:25 AM EST) RBC UA 1 0 - 4 /HPF [facility] WBC UA 10(H) 0 - 5 /HPF [facility] Squam Epith UA 4 <=4 /HPF [facility] Hyaline Cast UA 1 0 - 2 /LPF [facility] Clean Catch Urine 04/19/2023 10:25 AM EST 04/19/2023 11:08 AM EST Narrative Resulting Agency Comment Spec In Lab Carrol SANDRA URINE ORDERABLES Performing Organization Address [facility] Co de Phone Number [facility] [place] [address] * (ABNORMAL) Urinalysis with reflex Culture (04/19/2023 [...] [facility] Leukocytes UA Small(A) Negative mcL [facility] Appearance UA Clear Clear [facility] Spec [place] UA 1.024 1.005 - 1.030 [facility] Color UA Yellow Yellow [facility] Culture Reflexed Yes LAZARUS Machado [facility] Clean Catch Urine 04/19/2023 10:25 AM EST 04/19/2023 11:08 AM EST Narrative Resulting Agency Comment Spec In Lab Ailyn Knight MD URINE ORDERABLES [facility] [place] [address] * Arterial Duplex Arm, Unilat (04/19/2023 9:40 AM EST) VB Text Report Department: Vascular Surgery Lab Patient: [id number] (LOIDA MADRIGAL) CPT: 21825 Referring Physician: AILYN KNIGHT ?? Phone: Indications: [...] AM EST) WBC 7.5 4.0 - 9.5 x10(3)/[facility] LABOR[facility] RBC 4.86 4.00 - 5.21 x10(6)/[facility] Hemoglobin 14.8 11.7 - 15.5 g/dL [facility] Hematocrit 45.5 35.7 - 45.8 % [facility] MCV 93.6 82.6 - 94.4 [facility] LABORATORY MCH 30.5 27.1 - 32.0 pg [facility] MCHC 32.5 31.7 - 35.0 g/dL [facility] Platelets 240 145 - 357 x10(3)/[facility] RDWSD 43.8 37.0 - 46.0 [facility] RDWCV 12.7 11.5 - 14.1 % [facility] MPV 11.0 7.6 - 12.9 [facility] LABORATORY nRBC % Auto 0.0 % [facility] nRBC Abs Auto 0.000 0.000 - 0.000 x10(3)/mcL [facility] Blood 04/19/2023 2:40 AM EST 04/19/2023 2:57 AM EST Narrative Resulting Agency Comment Spec In Lab Ailyn Knight MD HEMATOLOGY ORDERABLE S [facility] [place] [address] * (ABNORMAL) BMP w/fasting Glucose (04/19/2023 2:40 [...] of Diabetes Mellitus, Position Statement from the [place] [employer]. ??Diabetes Care, Volume 33, Supplement [...] Knight MD CHEMISTRY ORDERABLES Performing Organization Address City/[facility]/ZIP Co de Phone Number [facility] [place] [address] * Magnesium (04/19/2023 2:40 AM EST) Magnesium 0.97 0.69 - 1.07 mmol/L [facility] Blood 04/19/2023 2:40 AM EST 04/19/2023 2:57 AM EST Narrative Resulting Agency Comment Spec In Lab Ailyn Knight MD CHEMISTRY ORDERABLES Performing Organization Address [facility] Co de Phone Number [facility] [place] [address] * CARDIAC CATHETERIZATION (04/18/2023 11:05 AM EST) Anatomical Region Laterality Modality Other Narrative 04/19/2023 6:57 AM EST ?[facility] ? Cardiac Catheterization/Intervention Report ? Patient Name: Neisha, Loida ? Procedure Date: 04/18/2023 ? A #: [id number] ? Primary Physician: Young, Dustin N ? Case #: [id number] ? File Name: [id number] ? Catheterization Order Number: [id number] ? [facility] ? Final Report [place], [place] ? Patient Name: ? Loida Neisha ? ID#: ?[id number] ? : ?1970 ? Procedure Date: ? April 18, 2023 ?Case #: ? [id number] ? Room: ? 6 ? Case Physician: ? Dustin Carrasco M.D. ?Start: ?10:26 ? Admission: ??04/16/2023 ? Referring Physician: ??Stuart Ieyr M.D. ? Procedures: ?* Coronary Angiography ?* [...] was Urgent. The indication for ?the laboratory chemist visit is ACS greater than 24 hrs. [...] Procedure Note Dustin Carrasco MD - 05/03/2023 [facility] Cardiac Catheterization/Intervention Report Patient Name: Loida Madrigal Procedure Date: 04/18/2023 A #: [id number] Primary Physician: Dustin Carrasco Case #: [id number] File Name: [id number] Catheterization Order Number: [id number] [facility] FinalReport [place], [place] Patient Name: Loida Madrigal ID#:[id number] :1970 Procedure Date: April 18, 2023 Case [...] was designated as ASA Class III. [facility] fra[facility] is 4: Vulnerable. [...] procedure was Urgent. The indicationfor the laboratory chemist visit is ACS greater than 24 hrs. [...] units of heparin were administered. A total sy235it of Omnipaque were opened, 65cc of Omnipaque were administered wts76vc of Omnipaque were wasted. Radiation: Fluoro time [...] HEMATOLOGY ORDERABLE S [facility] [place] [address] * Differential, Automated (04/18/2023 2:10 AM EST) Neutrophils % 51.4 % [facility] Neutr Abs (ANC) 3.43 1.70 - 6.10 x10(3)/[facility] LAB[facility] Lymphocytes % 33.8 % [facility] Lymphocytes Abs 2.2 0.9 - 3.2 x10(3)/[facility] LAB[facility] Monocytes % 9.9 % [facility] Monocyte Abs 0.7 0.3 - 0.9 x10(3)/[facility] LABOR[facility]ORY Eosinophils % 3.9 % [facility] Eosinophils Abs 0.3 0.0 - 0.4 x10(3)/[facility] LABOR[facility]ORY Basophils % 0.8 % [facility] Basophils Abs 0.0 0.0 - 0.1 x10(3)/[facility] LABOR[facility]ORY Immature Gran % 0.20 % NORTH [...] x10(3)/[facility] LAB[facility] Blood 04/18/2023 2:10 AM EST 04/18/2023 2:44 AM EST Narrative Resulting Agency Comment Spec In Lab Terrence Maloney MD HEMATOLOGY ORDERABLE S [facility] [place] [address] * Hemogram (04/18/2023 2:10 AM EST) WBC 6.7 4.0 - 9.5 x10(3)/[facility] LABORATORY RBC 4.93 4.00 - 5.21 x10(6)/[facility] Hemoglobin 15.2 11.7 - 15.5 g/dL [facility] Hematocrit 44.9 35.7 - 45.8 % [facility] MCV 91.1 82.6 - 94.4 fL [facility] MCH 30.8 27.1 - 32.0 pg [facility] MCHC 33.9 31.7 - 35.0 g/dL [facility] Platelets 233 145 - 357 x10(3)/[facility] LABORATORY RDWSD 42.0 37.0 - 46.0 [facility] LABORATORY RDWCV 12.8 11.5 - 14.1 % [facility] MPV 11.3 7.6 - 12.9 [facility] LAB[facility]ATORY nRBC % Auto 0.0 % [facility] nRBC Abs Auto 0.000 0.000 - 0.000 x10(3)/[facility] LAB[facility] Blood 04/18/2023 2:10 AM EST 04/18/2023 2:44 AM EST Narrative Resulting Agency Comment Spec In Lab Terrence Maloney MD HEMATOLOGY ORDERABLE S Performing Organization Address City/State/[facility] Co de Phone Number [facility] [place] [address] * Heparin (unfractionated) Level (04/18/2023 2:10 AM EST) Pathologist [facility] Heparin UFH Level 0.50 IU/mL [facility] [...] HEMATOLOGY ORDERABLE S [facility] [place] [address] * (ABNORMAL) BMP w/fasting Glucose (04/18/2023 2:10 [...] of Diabetes Mellitus, Position Statement from the [place] [employer]. ??Diabetes Care, Volume 33, Supplement [...] Knight MD CHEMISTRY ORDERABLES Performing Organization Address City/[facility] Co de Phone Number [facility] [place] [address] * Magnesium (04/18/2023 2:10 AM EST) Magnesium 1.02 0.69 - 1.07 mmol/L [facility] Blood 04/18/2023 2:10 AM EST 04/18/2023 2:44 AM EST Narrative Resulting Agency Comment Spec In Lab Ailyn Knight MD CHEMISTRY ORDERABLES Performing Organization Address [facility]/ZIP Co de Phone Number [facility] [place] [address] * LDL Cholesterol, Direct (04/18/2023 2:10 AM EST) LDL Chol Direct 105 mg/dL [facility] Comment: Lowest Risk: <100 mg/dL Lower Risk: 100-129 mg/dL Borderline High Risk: 130-159 mg/dL High Risk: 160-189 mg/dL Very High Risk: >ie=510 mg/dL Blood 04/18/2023 2:10 AM EST 04/18/2023 2:44 AM EST Narrative Resulting Agency Comment Spec In Lab Terrence Maloney MD CHEMISTRY ORDERABLES Performing Organization Address [facility] Co de Phone Number [facility] [place] [address] * Hemoglobin A1c (04/18/2023 2:10 AM EST) [...] Mellitus, Diabetes Care 2013; 36: Suppl. 1, L87-24 Est Avg Gluc 115 mg/dL [facility] Blood 04/18/2023 2:10 AM EST 04/18/2023 2:44 AM EST Narrative Resulting Agency Comment Spec In Lab Terrence Maloney MD CHEMISTRY ORDERABLES Performing Organization Address [facility] Co de Phone Number [facility] [place] [address] * Lipid Panel (Reflex Direct LDL) (04/18/2023 2:10 AM EST) Chol, Total 173 mg/dL [facility] Comment: Lower Risk: <200 mg/dL Average Risk: 200-239 mg/dL Higher Risk: >mm=106 mg/dL Triglycerides 174 mg/dL [facility] Comment: Average Risk/Lower Risk: <150 mg/dL Borderline High Risk: 150-199 mg/dL High Risk: 200-499 mg/dL Very High Risk: >fq=256 mg/dL HDL 44 mg/dL [facility] Comment: Males: ?? Higher Risk: <40 mg/dL Females: ?? Higher Risk: <50 mg/dL LDL Cholesterol 94 mg/dL [facility] Comment: Lowest Risk: <100 mg/dL Lower Risk: 100-129 mg/dL Borderline High Risk: 130-159 mg/dL High Risk: 160-189 mg/dL Very High Risk: >vy=945 mg/dL Chol/HDL Ratio 3.9 ratio [facility] Lipid Interpretation See Note [facility] Comment: Lipid management should be guided by a patient? s ASCVD risk, goals and preferences. ACC/AHA Guidelines recommend high intensity statin if clinical ASCVD or LDL greater than or equal to 190 mg/dL. http://Vir2us.Easy Taxi/VZX-MNA-Owmvieknc Adults aged 40-75 with LDL 70-189 mg/dL should have their 10 year ASCVD risk estimated with the ACC/AHA ASCVD risk charge histotechnologist http://tools.acc.org/QEKKD-Qdnu-Rooblkytt/ Statin should be discussed if risk greater [...] MD CHEMISTRY ORDERABLES [facility] [place] [address] * POCT Glucose (04/17/2023 7:44 PM EST) [facility] POC Glucose 128 65 - 199 mg/dL [facility] Comment: Supplemental ranges: <140 mg/dL before meals <180 mg/dL all other times of the day Blood 04/17/2023 7:44 PM EST 04/17/2023 7:44 PM EST Ailyn Knight MD POINT OF CARE TEST O RDERABLES Performing Organization Address [facility] Co de Phone Number [facility] [place] [address] * (ABNORMAL) Heparin (unfractionated) Level (04/17/2023 6:01 PM EST) [facility] Heparin UFH Level 1.14(Crit ical) IU/mL NORTH [...] Narrative Resulting Agency Comment Spec In Lab Trerence Maloney MD HEMATOLOGY ORDERABLE S Performing Organization Address [facility] Co de Phone Number [facility] [place] [address] * (ABNORMAL) Heparin (unfractionated) Level (04/17/2023 12:45 PM EST) Heparin UFH Level 1.39(Crit ical) IU/mL [facility] Comment: Critical Result called by ?? OLVINFLCASSI CRITICAL Results read back by: ? Marta [...] ORDERABLE S [facility] [place] [address] * ECHO LMTD W CONTRAST W LMTD SPEC DOPP COLOR DOPP (04/17/2023 11:59 AM EST) EF 58 HEARTLAB SYSTEM Anatomical Region Laterality Modality Cardiac Other 04/17/2023 10:2 4 AM EST Narrative 04/17/2023 12:09 PM EST [address] [place] [address] ? Echocardiogram Report Name: LOIDA MADRIGAL ? Study Date: 04/17/2023 10:24 AMBP: 114/64 mmHg ? Patient Location: : 1970 ? Height: 160 cm ? Account: [id number] Age: 53 yrs ? Weight: 98 kg Gender: Female ?BSA: 2.0 m2 Ordering Physician: TERRENCE MALONEY Referring Physician: TERRENCE MALONEY Performed By: HAIM Becerra Reason For Study: Chest pain; NSTEMI Exam Location: [facility]. Interpretation Summary Left ventricle is normal in size and wall thickness. Normal global systolic function with regional wall motion abnormalities as ascribed on the anterior/anterolateral aspect. Right ventricle is normal in size and systolic function. No significant cardiac valve findings. No pericardial effusion. Compared to prior study dated 02/09/2023, the extent of the anterior abnormal wall motion has increased. Procedure Limited - 72587. Image enhancement Optison was used for left [...] Note Jaspreet Kinsey MD - 04/17/2023 [address] [place] [address] Echocardiogram Report Name: LOIDA MADRIGAL Study Date: 0:24 AMBP: 114/64 mmHg Patient Location: : 1970 Height: 160 cm Account: [id number] Age: 53 yrs Weight: 98 kg Gender: Female BSA: 2.0 m2 Ordering Physician: TERRENCE MALONEY Referring Physician: TERRENCE MALONEY Performed By: HAIM Becerra Reason For Study: Chest pain; NSTEMI Exam Location: [facility]. Interpretation Summary Left ventricle is normal in size and wall thickness. Normal globalsystolic function with regional wall motion abnormalities as ascribed on the anterior/anterolateral aspect. Right ventricle is normal in size and systolic function. No significant cardiac valve findings. No pericardial effusion. Compared to prior study dated 02/09/2023, the extent of the anteriorabnormal wall motion has increased. Procedure Limited - 60562. Image enhancement Optison was used for left [...] HEMATOLOGY ORDERABLE S [facility] [place] [address] * (ABNORMAL) Troponin (04/17/2023 6:43 AM EST) Troponin-T HS 23(H) <=14 ng/L [facility] Comment: This patient's troponin T [...] troponin value can be found in the [facility] Test Catalog Troponin - [facility] Test Catalog Reference: Fourth [place] Definition of Myocardial Infarction. Journal of the [place] [employer] 2018;72:0591-7116 Blood 04/17/2023 6:43 AM EST 04/17/2023 6:52 AM EST Narrative Resulting Agency Comment Spec In Lab Terrence Maloney MD CHEMISTRY ORDERABLES [facility] [place] [id number] * EKG 12 Lead (04/17/2023 3:41 AM EST) Ventricular rate 47 BPM MUSE SYSTEM Atrial Rate 47 BPM MUSE SYSTEM P-R Interval 186 ms MUSE SYSTEM QRS Duration 90 ms MUSE SYSTEM Q-T Interval 578 ms MUSE SYSTEM QTC Calculated (Bezet) 511 ms MUSE SYSTEM Calculated P [place] 24 degrees MUSE SYSTEM Calculated R [place] 23 degrees MUSE SYSTEM Calculated T [place] 27 degrees MUSE SYSTEM INTERPRETATION Sinus bradycardia with Premature atrial complexes Possible Left atrial enlargement Possible Lateral infarct , age undetermined Prolonged QT Abnormal ECG When compared with ECG of 01-APR-2023 12:28, Premature atrial complexes are now Present Vent. rate has decreased BY ??33 BPM Nonspecific T wave abnormality, improved in Anterior leads Confirmed by MD Angelo Danette ([id number]) on 04/20/2023 8:28:40 PM MUSE SYSTEM 04/17/2023 3:41 AM EST 04/20/2023 8:28 PM EST Terrence Maloney MD ECG ORDERABLES MUSE SYSTEM * Differential, Automated (04/17/2023 3:33 AM EST) Neutrophils % 54.4 % [facility] Neutr Abs (ANC) 4.02 1.70 - 6.10 x10(3)/[facility] LAB[facility] Lymphocytes % 32.0 % [facility] Lymphocytes Abs 2.4 0.9 - 3.2 x10(3)/[facility] LAB[facility] Monocytes % 8.7 % [facility] Monocyte Abs 0.6 0.3 - 0.9 x10(3)/[facility] Eosinophils % 3.9 % [facility] Eosinophils Abs 0.3 0.0 - 0.4 x10(3)/[facility] Basophils % 0.7 % [facility] Basophils Abs 0.0 0.0 - 0.1 x10(3)/[facility] LAB[facility] Immature Gran % 0.30 % NORTH [...] x10(3)/[facility] Blood 04/17/2023 3:33 AM EST 04/17/2023 3:42 AM EST Narrative Resulting Agency Comment Spec In Lab Terrence Maloney MD HEMATOLOGY ORDERABLE S [facility] [place] [address] * Hemogram (04/17/2023 3:33 AM EST) WBC 7.4 4.0 - 9.5 x10(3)/[facility] LABOR[facility]ORY RBC 4.79 4.00 - 5.21 x10(6)/[facility] Hemoglobin 14.8 11.7 - 15.5 g/dL [facility] Hematocrit 44.3 35.7 - 45.8 % [facility] MCV 92.5 82.6 - 94.4 fL [facility] MCH 30.9 27.1 - 32.0 pg [facility] MCHC 33.4 31.7 - 35.0 g/dL [facility] Platelets 233 145 - 357 x10(3)/[facility] RDWSD 43.4 37.0 - 46.0 [facility] LABORATORY RDWCV 12.7 11.5 - 14.1 % [facility] MPV 11.0 7.6 - 12.9 [facility] LABORATORY nRBC % Auto 0.0 % [facility] nRBC Abs Auto 0.000 0.000 - 0.000 x10(3)/[facility] LAB[facility] Blood 04/17/2023 3:33 AM EST 04/17/2023 3:42 AM EST Narrative Resulting Agency Comment Spec In Lab Terrence Maloney MD HEMATOLOGY ORDERABLE S [facility] [place] [address] * Sedimentation rate (04/17/2023 3:33 AM EST) [...] MD HEMATOLOGY ORDERABLE S Performing Organization Address City/[facility]/ZIP Co de Phone Number [facility] [place] [address] * CRP, acute inflammation (04/17/2023 3:33 AM EST) CRP <3.0 <=4.9 mg/L [facility] Blood 04/17/2023 3:33 AM EST 04/17/2023 3:42 AM EST Narrative Resulting Agency Comment Spec In Lab Terrence Maloney MD CHEMISTRY ORDERABLES Performing Organization Address [facility] Co de Phone Number [facility] [place] [address] * (ABNORMAL) Troponin (04/17/2023 3:33 AM EST) Troponin-T HS 24(H) <=14 ng/L [facility] Comment: This patient's troponin T [...] troponin value can be found in the [facility] Test Catalog Troponin - [facility] Test Catalog Reference: Fourth [place] Definition of Myocardial Infarction. Journal of the [place] [employer] 2018;72:9318-7737 Blood 04/17/2023 3:33 AM EST 04/17/2023 3:42 AM EST Narrative Resulting Agency Comment Spec In Lab Terrence Maloney MD CHEMISTRY ORDERABLES Performing Organization Address [facility] de Phone Number [facility] [place] [address] * (ABNORMAL) APTT (04/17/2023 3:33 AM EST) [...] MD HEMATOLOGY ORDERABLE S Performing Organization Address [facility] de Phone Number [facility] [place] [address] * (ABNORMAL) Prothrombin Time (04/17/2023 3:33 AM EST) PT 13.3(H) 9.4 - 12.5 sec [facility] INR 1.2 [facility] Comment: An INR [...] MD HEMATOLOGY ORDERABLE S Performing Organization Address City/[facility] Co de Phone Number [facility] [place] [address] * Hepatic Function Panel (04/17/2023 3:33 AM [...] MD CHEMISTRY ORDERABLES Performing Organization Address [facility] Co de Phone Number [facility] [place] [address] * (ABNORMAL) pro-Brain Natriuretic Peptide (04/17/2023 3:33 AM EST) Pathologist [facility] ProBNP 867(H) <=124 pg/mL [facility] Blood 04/17/2023 3:33 AM EST 04/17/2023 3:42 AM EST Narrative Resulting Agency Comment Spec In Lab Terrence Maloney MD CHEMISTRY ORDERABLES Performing Organization Address [facility]/ZIP Co de Phone Number [facility] [place] [address] * (ABNORMAL) TSH (04/17/2023 3:33 AM EST) TSH 5.93(H) 0.27 - 4.20 mcIU/mL [facility] Comment: Reference Interval (mcIU/mL): Females: ??First Trimester: 0.23-3.88 ??Second Trimester: 0.22-3.90 ??Third Trimester: 0.44-4.66 Blood 04/17/2023 3:33 AM EST 04/17/2023 3:42 AM EST Narrative Resulting Agency Comment Spec In Lab Terrence Maloney MD CHEMISTRY ORDERABLES Performing Organization Address [facility] Co de Phone Number [facility] [place] [address] * Phosphorus (04/17/2023 3:33 AM EST) Pathologist [facility] Phosphorus 4.1 2.5 - 4.5 mg/dL [facility] Blood 04/17/2023 3:33 AM EST 04/17/2023 3:42 AM EST Narrative Resulting Agency Comment Spec In Lab Terrence Maloney MD CHEMISTRY ORDERABLES Performing Organization Address [facility] Co de Phone Number [facility] [place] [address] * Magnesium (04/17/2023 3:33 AM EST) Pathologist [facility] Magnesium 0.99 0.69 - 1.07 mmol/L [facility] Blood 04/17/2023 3:33 AM EST 04/17/2023 3:42 AM EST Narrative Resulting Agency Comment Spec In Lab Terrence Maloney MD CHEMISTRY ORDERABLES Performing Organization Address [facility] Co de Phone Number [facility] [place] [address] * (ABNORMAL) Basic Metabolic Panel (non-fasting) (04/17/2023 [...] MD CHEMISTRY ORDERABLES [facility] [place] [address] * Film Library- Storage Only CT Chest [...] Nickerson RN) 0812 (Given - Provider: Charity Jacksno, ERWIN) 0924 (Given - Provider: China Myers) [...] documented as of this encounter 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
--- OUTSIDE RECORDS SUMMARY | 2023-10-05 17:05 | XMS_ITS | Encounter Summary ---
Author Organization [facility] Address [facility] [place] [address] Care Team Providers Care Culinary Worker Name Role Phone Polo Pearce Primary Care Provider [phone] Reason for Visit * Reason Comments Cardiomyopathy Encounter Details Date Type Department Care Team (Late st Contact Info) Description 05/10/2023 2:40 PM EST Office Visit Cardiology at [address] [place] [address] Jasprete Kinsey MD [facility] [place] [address] Heart failure with preserved ejection fraction, unspecified HF chronicity (Primary Dx); SVT (supraventricular tachycardia) Social History Tobacco Use Types Packs/Day Years Used Date Smoking Tobacco: Never Smokeless Tobacco: Never Alcohol Use Standard Drinks/Week Comments Never 0 (1 standard drink = 0.6 oz pur e alcohol) [facility] Utilities Answer Date Recorded In the past 12 months has [employer] electric, gas, oil, or water company threatened [...] Oral, DAILY fluticasone propionate (FLONASE) 50 mcg/actuation Qulin, Suspension 1 spray, Each Nare, PRN gabapentin [...] AM EDT Tech [place] [address] [address] [place] 10/08/2023 9:30 AM EDT Office Visit [place] [address] MD [facility] DR VASCULAR SURGERY [place], [place] [phone] 10/21/2023 10:30 AM EDT Appointment [place] [phone] [place] [address] 10/21/2023 11:30 AM EDT Appointment [place] [phone] Mary Reyes [facility] [address] 10/21/2023 12:30 PM EDT Appointment [place] [phone] Mary Reyes [facility] [address] 10/21/2023 1:30 PM EDT Appointment [place] [address] Mary Reyes OCEAN LIFEGUARD SPECIALIST [facility] [place] [address] 10/21/2023 2:30 PM EDT Appointment [place] [address] Mary Reyes [employer] LIFE[employer] SPECIALIST [facility] [place] [address] 10/26/2023 4:00 PM EDT Office Visit Cardiology at [address] [phone] Jaspreet Kinsey MD [facility] [place] [address] 10/28/2023 9:00 AM EDT Office [place] [address] 10/29/2023 10:00 AM EDT Clinical [place] [address] 10/29/2023 10:15 AM EDT Procedure [place] [address] 11/01/2023 5:00 PM EDT Office Visit [place] [address] Selene Browning, PhD [facility] [place] [address] 11/22/2023 4:40 PM EDT Office Visit Cardiology at [address] [phone] Porsha Mcdaniels MD [facility] [place] [address] 12/13/2023 10:00 AM EDT Clinical Support [place] [address] [facility] [place] [place] [address] documented as of this encounter Results * Streptococcal Antibody Panel (08/25/2023 11:28 AM EDT) [facility] ASO Titer 25 0 - 530 IU/mL [facility] Comment: Test Performed by: [place] [address] Metal Buildings Assembler: Nellie Haney Ph.D.; CLIA# [id number] DNase B Ab 146 0 - 300 unit/mL [facility] Comment: Test Performed by: [place] [address] Metal Buildings Assembler: Nellie Haney Ph.D.; CLIA# [id number] Blood 08/25/2023 11:2 8 AM EDT 08/25/2023 1:02 PM EDT Narrative Resulting Agency Comment Spec In Lab Jaspreet Kinsey MD IMMUNOLOGY ORDERABLE S [facility] [place] [address] * Lyme IgG & IgM Antibody (08/25/2023 11:28 AM EDT) [facility] Lyme Screening Antibody Negative Negative [facility] Lyme Ab Comment Negative result does not exclude possibility of infection. [facility] Comment: Please note that as of 07/14/2022 that this testing is performed by the [facility] at [facility]. This change in testing location is associated with a change in testing methodology. Blood 08/25/2023 11:2 8 AM EDT 08/26/2023 7:26 AM EDT Narrative Resulting Agency Comment Spec In Lab Jaspreet Kinsey MD IMMUNOLOGY ORDERABLE S Performing Organization Address [facility] Co de Phone Number [facility] [place] [address] * Ferritin (08/25/2023 11:28 AM EDT) Ferritin 110 11 - 328 ng/mL [facility] Comment: Please note that as of 02/10/2023, the reference intervals for Ferritin have been updated. Blood 08/25/2023 11:2 8 AM EDT 08/25/2023 11:37 AM EDT Narrative Resulting Agency Comment Spec In Lab Jaspreet Kinsey MD CHEMISTRY ORDERABLES Performing Organization Address [facility] Co de Phone Number [facility] [place] [address] * Iron and TIBC (08/25/2023 11:28 AM EDT) Pathologist [facility] Iron 113 30 - 150 mcg/dL [facility] TIBC 338 250 - 450 mcg/dL [facility] Iron Saturation 33 20 - 50 % [facility] Blood 08/25/2023 11:2 8 AM EDT 08/25/2023 11:36 AM EDT Narrative Resulting Agency Comment Spec In Lab Jaspreet Kinsey MD CHEMISTRY ORDERABLES Performing Organization Address [facility] Co de Phone Number [facility] [place] [address] * (ABNORMAL) Free Light Chains, Serum (08/25/2023 11:28 AM EDT) [place] Free Light Chain 3.09(H) 0.72 - 2.75 mg/dL [facility] Lambda Free Light Chain 1.65 0.57 - 2.15 mg/dL [facility] [place] Lambda FLC Ratio 1.8727 0.4000 - 2.5800 [facility] Blood 08/25/2023 11:2 8 AM EDT 08/25/2023 11:36 AM EDT Narrative Resulting Agency Comment Spec In Lab Jaspreet Kinsey MD CHEMISTRY ORDERABLES Performing Organization Address [facility] Co de Phone Number [facility] [place] [address] * (ABNORMAL) Protein Electrophoresis, serum (08/25/2023 11:28 AM EDT) Total Prot Elec 7.5 6.1 - 8.0 g/dL [facility] Albumin Elect 4.62 3.20 - 5.20 g/dL [facility] Alpha1-Globul in 0.20 0.10 - 0.30 g/dL [facility] Alpha2-Globul in 0.92(H) 0.40 - 0.90 g/dL [facility] Beta Globulin 0.89 0.50 - 1.00 g/dL [facility] Gamma Globulin 0.88 0.50 - 1.30 g/dL [facility] M1 Band None Detected None Detected [facility] Blood 08/25/2023 11:2 8 AM EDT 08/25/2023 11:37 AM EDT Narrative Resulting Agency Comment Spec In Lab Jaspreet Kinsey MD CHEMISTRY ORDERABLES Performing Organization Address [facility] Co de Phone Number [facility] [place] [address] * KATHRINE Antibody Screen (08/25/2023 11:28 AM EDT) Antinuclear Ab Negative Negative [facility] Comment: This antinuclear antibody (KATHRINE) screen is a qualitative test performed using a fluoroenzyme immunoassay on the [employer] 250 analyzer. This screen is designed to detect antibodies to U1RNP, SS-A/Ro, SS-B/La, centromere B, Scl-70, Dasia-1, and Sm(Alcantar) proteins in serum samples. Antibodies to other nuclear antibodies will not be detected with this assay. This KATHRINE screen is also performed in concert with a quantitative for IgG antibodies to dsDNA. dsDNA Ab 1.0 <=15.0 IU/mL [facility] Comment: <10 negative 10-15 equivocal >15 positive This dsDNA antibody result was generated using a fluoroenzyme immunoassay on the [employer] 250 analyzer. This quantitative test is designed to detect IgG antibodies directed against double stranded DNA in human serum. The presence of antibodies that recognize dsDNA is a highly specific marker for systemic lupus erythematosus. Please note that as of 12/30/2021 that this testing is performed by the [facility] at [facility]. This change in testing location is associated with a change is testing method and reference intervals. Please review the results of this test in association with the posted reference intervals. Blood 08/25/2023 11:2 8 AM EDT 08/26/2023 7:26 AM EDT Narrative Resulting Agency Comment Spec In Lab Jaspreet Kinsey MD IMMUNOLOGY ORDERABLE S [facility] [place] [address] documented in this encounter Visit Diagnoses Diagnosis Heart failure with preserved ejection fraction, unspecified HF chronicity- Primary SVT (supraventricular tachycardia) Other specified cardiac dysrhythmias documented in this encounter Care Teams Culinary Worker Relationship Specialty Start Date End Date Polo Pearce PA [address] [place] [address] PCP - General Internal Medicine 06/09/21 documented as of this encounter
--- OUTSIDE RECORDS SUMMARY | 2023-10-05 17:05 | XMS_ITS | Encounter Summary ---
[place] [address] Care Team Providers Care Event Sales Representative Name Role Phone Polo Pearce Primary Care Provider [phone] Encounter Details Date Type Department Care Team (Late st Contact Info) Description 06/14/2023 External Results [place] [phone] Social History Tobacco Use Types Packs/Day Years [...] AM EDT Tech Visit Vascular Lab at [place] [phone] [place] [place] 10/08/2023 9:30 AM EDT Office Visit [place] [address] MD [facility] [place] [address] 10/21/2023 10:30 AM EDT Appointment [place] [phone] Mary Reyes APRN [facility] [place] [address] 10/21/2023 11:30 AM EDT Appointment [place] [phone] Mary Reyes APRN [facility] [place] [address] 10/21/2023 12:30 PM EDT Appointment [place] [address] [place] [address] 10/21/2023 1:30 PM EDT Appointment [place] [address] [place] [address] 10/21/2023 2:30 PM EDT Appointment [place] [address] [place] [address] 10/26/2023 4:00 PM EDT Office Visit Cardiology at [address] [phone] Jaspreet Kinsey MD [facility] [place] [address] 10/28/2023 9:00 AM EDT Office [place] [address] 10/29/2023 10:00 AM EDT Clinical [place] [address] 10/29/2023 10:15 AM EDT Procedure [place] [address] 11/01/2023 5:00 PM EDT Office Visit [place] [address] Selene Browning, PhD [facility] [place] [address] 11/22/2023 4:40 PM EDT Office Visit Cardiology at [address] [phone] Porsha Mcdaniels MD [facility] [place] [address] 12/13/2023 10:00 AM EDT Clinical Support [place] [phone] Lucero Romero, RD [facility] [place] [address] documented as of this encounter Procedures Procedure Name Priority Date/Time Associated Diagnosis Comments ECG SCAN Routine 06/14/2023 11:24 AM EDT documented in this encounter Results * Scan Doc: ECG (06/14/2023 11:24 AM EDT) Historical Provider MD FLEMING MGTalia SCAN EX T ORDR/RSLT documented in this encounter Visit Diagnoses Not on filedocumented in this encounter Care Teams Event Sales Representative Relationship Specialty Start Date End Date Polo Pearce PA [address] [place] [address] PCP - General Internal Medicine 06/09/21 documented as of this encounter
--- OUTSIDE RECORDS SUMMARY | 2023-10-05 17:06 | XMS_ITS | Encounter Summary ---
[place] [address] Care Team Providers Care New Car Get Ready Mechanic Name Role Phone Polo Pearce Primary Care Provider [phone] Reason for Visit * Auth/Cert (Routine) Specialty [...] THER/DX INTERVENT ELECTROPHYSIOLOGY PROCEDURE Jed Tovar MD [facility] [place] [address] [facility] Referral ID Status Reason Start Date Expiration Date Visits Re quested Visits Authorized [id number] 1 1 Encounter Details Date Type Department Care Team (Latest Contact Info) Description 04/01/2023 6:20 AM EST - 04/01/2023 4:00 PM EST Hospital Encounter [place] [address] Jed Tovar MD [facility] [place] [address] SVT (supraventricular tachycardia); PAF (paroxysmal atrial fibrillation) Discharge Disposition: Home Social History Tobacco Use Types Packs/Day Years Used Date Smoking Tobacco: Never Smokeless Tobacco: Never Alcohol Use Standard Drinks/Week Comments Never 0 (1 standard drink = 0.6 oz pur e alcohol) [facility] Utilities Answer Date Recorded In the past 12 months has th e [employer], gas, oil, or water company threatened to [...] Indira Roque Patient Age: 53 y.o. Language: Belgian Race: White Ethnicity: Not nor Admit date: [...] Cardiac Electrophysiology - Weekends and holidays call [phone]; ask for landscaper helper international account representative. Discharge Diagnoses (Hospital Problems) and Secondary Diagnoses [...] 06/13/2021 in the context of hospitalization at [facility] for NSTEMI. A rapidly conducted [...] days. Refills: 0 fluticasone propionate 50 mcg/actuation Melissa, Suspension Commonly known as: Flonase 1 spray [...] 3:00 PM Jaspreet Kinsey MD Cardiology at [place] Arrive at: [facility] [address] [phone] Discharge References/Attachments None documented in this encounter [...] as needed. fluticasone propionate (FLONASE) 50 mcg/actuation Melissa, Suspension 1 spray by Each Nare route [...] PRE-PROCEDURE H&P Referring Provider: Jaspreet Kinsey MD [facility] [place] [address] Attending Provider: Jed Tovar MD Planned Procedure: EP study and SVT ablation Background and rationale for the procedure: Indira Roque is a 53 y.o. woman with paroxysmal atrial fibrillation, heart failure with preserved EF, and chronic angina with non-obstructive ASCVD but significant calcifications per coronary CTA. She has documented sustained narrow complex tachycardia on 06/13/2021 in the context of hospitalization at [facility] for NSTEMI. A rapidly conducted [...] as needed. fluticasone propionate (FLONASE) 50 mcg/actuation Melissa, Suspension 1 spray by Each Nare route [...] in agreement. Dr. Jed Tovar, electrophysiology attending ([id number]) documented in this encounter Procedure Notes * [...] jittery Break coverage by Luiza Peña RN [phone]. PACU D/C criteria met at 1300 1345 Hand off to ERWIN GomezP documented in this encounter Miscellaneous Notes * Brief Op Note - Jed Tovar MD - 04/01/2023 11:07 AM EST Brief Operative Note Patient Name: Indira Roque : [id number] MR#: [id number] Case Date: 04/01/2023 Surgeon: Surgeon(s) and Role: [...] Tech Visit Vascular Lab at [place] [phone] [place] 10/08/2023 9:30 AM EDT Office [place] [address] MD [facility] [place] [address] 10/21/2023 10:30 AM EDT Appointment [place] [address] Mary Reyes APRN [facility] [place] [address] 10/21/2023 11:30 AM EDT Appointment [place] [address] Mary Reyes APRN [facility] [place] [address] 10/21/2023 12:30 PM EDT Appointment [place] [address] [place] [address] 10/21/2023 1:30 PM EDT Appointment [place] [address] [place] [address] 10/21/2023 2:30 PM EDT Appointment [place] [address] Mary Reyes [facility] [address] 10/26/2023 4:00 PM EDT Office Visit Cardiology at [address] [phone] Jaspreet Kinsey MD [facility] [place] [address] 10/28/2023 9:00 AM EDT Office [place] [address] 10/29/2023 10:00 AM EDT Clinical [place] [address] 10/29/2023 10:15 AM EDT Procedure [place] [address] 11/01/2023 5:00 PM EDT Office [place] [address] Selene Browning, PhD [facility] [place] [address] 11/22/2023 4:40 PM EDT Office Visit Cardiology at [address] [address] Porsha Mcdaniels MD [facility] [place] [address] 12/13/2023 10:00 AM EDT Clinical [place] [address] Lucero Romero, RD [facility] [place] [address] documented as of this encounter Procedures Procedure [...] (Bezet) 519 ms MUSE SYSTEM Calculated P [place] 44 degrees MUSE SYSTEM Calculated R [place] 41 degrees MUSE SYSTEM Calculated T [place] 36 degrees MUSE SYSTEM INTERPRETATION Normal sinus [...] not included. ELECTROPHYSIOLOGY STUDY AND SVT ABLATION Sewage Plant Attendant: Jed Tovar MD Fellow: Jaspreet Grimm MD Referring: Jaspreet Kinsey MD Patient History: Indira Roque is a 53 y.o. woman with one episode of paroxysmal atrial fibrillation, heart failure with preserved EF, and chronic angina with non-obstructive ASCVD but significant calcifications per coronary CTA. She has documented sustained narrow complex tachycardia on 06/13/2021 in the context of hospitalization at [facility] for NSTEMI. A rapidly conducted [...] with Dr. Tovar in 1-3 ??months at [facility] 5. 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 Procedures performed: SVT ablation (cpt 12405); induce post IV drug (cpt 23029-28-53) I have read, edited and approve of [...] (Bezet) 522 ms MUSE SYSTEM Calculated P [place] 50 degrees MUSE SYSTEM Calculated R [place] 69 degrees MUSE SYSTEM Calculated T [place] 16 degrees MUSE SYSTEM INTERPRETATION Sinus bradycardia Lateral infarct , age undetermined Prolonged QT Abnormal ECG When compared with ECG of 22-MAR-2023 16:45, (unconfirmed) T wave inversion no longer evident in Anterior leads QT has lengthened I personally reviewed the tracing and edited the fellows interpretation Confirmed by fellow MD Nas, Max ([id number]) on 04/01/2023 3:35:42 PM Confirmed by MD NIALA, KAUSHIK ([id number]) on 04/02/2023 8:28:26 AM MUSE SYSTEM 04/01/2023 7:31 AM EST 04/02/2023 8:28 AM EST Jed Tovar MD ECG ORDERABLES MUSE SYSTEM * Differential, Automated (04/01/2023 7:20 AM EST) Pathologist [facility] Neutrophils % 53.2 % [facility] Neutr Abs (ANC) 3.51 1.70 - 6.10 x10(3)/[facility] LAB[facility] Lymphocytes % 32.4 % [facility] Lymphocytes Abs 2.1 0.9 - 3.2 x10(3)/[facility] Monocytes % 8.7 % [facility] Monocyte Abs 0.6 0.3 - 0.9 x10(3)/[facility] Eosinophils % 4.6 % [facility] Eosinophils Abs 0.3 0.0 - 0.4 x10(3)/[facility] Basophils % 0.8 % [facility] Basophils Abs 0.0 0.0 - 0.1 x10(3)/[facility] LAB[facility] Immature Gran % 0.30 % [facility] Comment: Immature granulocytes(IG's)percentage and absolute count will include metamyelocytes, myelocytes, and promyelocytes. Blood smears from CBCs yielding IG's will be scanned manually for concordance. If this scan disagrees with the automated IG or if promyelocytes are noted, a manual differential will be performed. Shonda Gran Abs 0.02 0.00 - 0.04 x10(3)/[facility] Blood 04/01/2023 7:20 AM EST 04/01/2023 7:33 AM EST Narrative Resulting Agency Comment Spec In Lab Jed Tovar MD HEMATOLOGY ORDERABLE S Performing Organization Address City/State/[facility] Co de Phone Number [facility] [place] [address] * (ABNORMAL) Hemogram (04/01/2023 7:20 AM EST) WBC 6.6 4.0 - 9.5 x10(3)/[facility] LAB[facility] RBC 4.56 4.00 - 5.21 x10(6)/[facility] Hemoglobin 14.1 11.7 - 15.5 g/dL [facility] Hematocrit 43.1 35.7 - 45.8 % [facility] MCV 94.5(H) 82.6 - 94.4 fL [facility] MCH 30.9 27.1 - 32.0 pg [facility] MCHC 32.7 31.7 - 35.0 g/dL [facility] Platelets 229 145 - 357 x10(3)/[facility] RDWSD 44.7 37.0 - 46.0 fL [facility] RDWCV 12.7 11.5 - 14.1 % [facility] MPV 11.7 7.6 - 12.9 fL [facility] nRBC % Auto 0.0 % [facility] nRBC Abs Auto 0.000 0.000 - 0.000 x10(3)/mcL [facility] Blood 04/01/2023 7:20 AM EST 04/01/2023 7:33 AM EST Narrative Resulting Agency Comment Spec In Lab Jed Tovar MD HEMATOLOGY ORDERABLE S [facility] [place] [address] * (ABNORMAL) BMP w/fasting Glucose (04/01/2023 7:20 AM EST) Glucose Fasting 99 65 - 99 mg/dL [facility] [...] of Diabetes Mellitus, Position Statement from the [place] [employer]. ??Diabetes Care, Volume 33, Supplement [...] questions. Chloride 108(H) 98 - 107 mmol/L [facility] CO2 22 22 - 31 mmol/L [facility] Anion Gap 9 5 - 15 mmol/L [facility] [...] In Lab Jed Tovar MD CHEMISTRY ORDERABLES [facility] [place] [phone] documented in this encounter Visit Diagnoses Diagnosis [...] Routine documented in this encounter Care Teams New Car Get Ready Mechanic Relationship Specialty Start Date End Date Polo Pearce PA [address] [place] [address] PCP - General Internal Medicine 06/09/21 documented as of this encounter
--- OUTSIDE RECORDS SUMMARY | 2023-10-05 17:06 | XMS_ITS | Encounter Summary ---
Author Organization [facility] [place] [address] Care Team Providers Care Merchandise Clerk Name Role Phone Polo Pearce Primary Care Provider [phone] Reason for Visit * Reason Onset Date Comments Follow-up 04/08/2023 Encounter Details Date Type Department Care Team (Late st Contact Info) Description 04/08/2023 Telephone Cardiology at [address] [phone] Mary Motta, RN Follow-up Social History Tobacco Use Types Packs/Day Years Used Date Smoking Tobacco: Never Smokeless Tobacco: Never Alcohol Use Standard Drinks/Week Comments Never 0 (1 standard drink = 0.6 oz pur e alcohol) [facility] Utilities Answer Date Recorded In the past 12 months has e [employer], gas, oil, or water [employer] threatened to shut off services in [...] AM EDT Tech Visit Vascular Lab at [place] [phone] [place] 10/08/2023 9:30 AM EDT Office Visit [place] [address] MD [facility] [place] [address] 10/21/2023 10:30 AM EDT Appointment Nuclear Medicine at [place] [phone] [place] [address] 10/21/2023 11:30 AM EDT Appointment [place] [address] [place] [address] 10/21/2023 12:30 PM EDT Appointment [place] [phone] Mary Reyes [facility] [place] [address] 10/21/2023 1:30 PM EDT Appointment [place] [phone] [place] [address] 10/21/2023 2:30 PM EDT Appointment [place] [phone] Mary Reyes APRN [facility] [place] [address] 10/26/2023 4:00 PM EDT Office Visit Cardiology at [address] [phone] Jaspreet Kinsey MD [facility] [place] [address] 10/28/2023 9:00 AM EDT Office Visit [place] [address] 10/29/2023 10:00 AM EDT Clinical Support [place] [address] 10/29/2023 10:15 AM EDT Procedure visit [place] [address] 11/01/2023 5:00 PM EDT Office Visit Gastroenterology at [place] [phone] Selene Browning, PhD [facility] [place] [address] 11/22/2023 4:40 PM EDT Office Visit Cardiology at [address] [phone] Porsha Mcdaniels MD [facility] [place] [address] 12/13/2023 10:00 AM EDT Clinical Support [place] [address] [facility] [place] [address] documented as of this encounter Visit Diagnoses Not on filedocumented in this encounter Care Teams Merchandise Clerk Relationship Specialty Start Date End Date Polo Pearce PA [address] [place] [address] PCP - General Internal Medicine 06/09/21 documented as of this encounter
--- OUTSIDE RECORDS SUMMARY | 2023-10-05 17:06 | XMS_ITS | Encounter Summary ---
[place] [address] Care Team Providers Care Dianeticist Name Role Phone Polo Pearce Primary Care Provider [phone] Encounter Details Date Type Department Care Team (Late st Contact Info) Description 04/16/2023 Ancillary Procedure [place] [address] Social History Tobacco Use Types Packs/Day Years [...] EDT Tech Visit [place] [phone] [place] [place] 10/08/2023 9:30 AM EDT Office Visit [place] [address] MD [facility] [place] [address] 10/21/2023 10:30 AM EDT Appointment [place] [phone] Mary Reyes APRN [facility] [place] [address] 10/21/2023 11:30 AM EDT Appointment [place] [phone] Mary Reyes APRN [facility] [place] [address] 10/21/2023 12:30 PM EDT Appointment [place] [address] Mary Reyes [facility] [place] [address] 10/21/2023 1:30 PM EDT Appointment [place] [address] Mary Reyes [facility] [place] [address] 10/21/2023 2:30 PM EDT Appointment [place] [address] Mary Reyes, [facility] [place] [address] 10/26/2023 4:00 PM EDT Office Visit Cardiology at [address] [phone] Jaspreet Kinsey MD [facility] [place] [address] 10/28/2023 9:00 AM EDT Office [place] [address] 10/29/2023 10:00 AM EDT Clinical [place] [address] 10/29/2023 10:15 AM EDT Procedure [place] [address] 11/01/2023 5:00 PM EDT Office Visit [place] [phone] Selene Browning, PhD [facility] [place] [address] 11/22/2023 4:40 PM EDT Office Visit Cardiology at [place] [phone] Porsha Mcdaniels MD [facility] [place] [address] 12/13/2023 10:00 AM EDT Clinical Support Gastroenterology at [address] Lucero Romero, RD [facility] [place] [address] documented as of this encounter Procedures Procedure [...] on filedocumented in this encounter Care Teams Dianeticist Relationship Specialty Start Date End Date Polo Pearce PA [address] [place] [address] PCP - General Internal Medicine 06/09/21 documented as of this encounter
--- OUTSIDE RECORDS SUMMARY | 2023-10-05 17:06 | XMS_ITS | Encounter Summary ---
Author Organization [facility] [place] [address] Care Team Providers Care Spring Layer Name Role Phone Polo Pearce Primary Care Provider [phone] Reason for Visit * Auth/Cert (Routine) Specialty [...] THER/DX INTERVENT ELECTROPHYSIOLOGY PROCEDURE Jed Tovar MD [facility] [place] [address] [facility] Referral ID Status Reason Start Date Expiration Date Visits Re quested Visits Authorized [id number] 1 1 Encounter Details Date Type Department Care Team (Late st Contact Info) Description 04/01/2023 7:39 AM EST Anesthesia Event [place] [phone] Merlin Lozoya MD [facility] [place] [address] Anesthesia Record Procedure Summary Procedure [...] Removal Time: 11104/01/23 0750 by Jaspreet Perry, OFFICE CLERK ROUTINE 04/01/23 1119 by Merlin Lozoya MD PIV 04/01/23; 0754; 18 gauge; dorsal arch vein (top of hand), right; Anatomical Landmarks; tanja; no longer indicated; 04/01/23; 1551 04/01/23 0754 by Jaspreet Perry, OFFICE CLERK ROUTINE 04/01/23 1551 by Gianna Bland RN LDA Cath/EP Sheath 04/01/23; 0823; 6.5 Kenyan (Fr); Left, Anterior; Femoral; Venous 04/01/23 0823 by Mary Herman RN 04/01/23 1056 by Mary Herman RN LDA Cath/EP Sheath 04/01/23; 0825; 6.5 Kenyan (Fr); Left, Anterior; Femoral; Venous 04/01/23 0825 by Mary Herman RN 04/01/23 1057 by Mary Herman RN LDA Cath/EP Sheath 04/01/23; 0825; 6.5 Kenyan (Fr); Left, Anterior; Femoral; Venous 04/01/23 0825 by Mary Herman RN 04/01/23 1057 by Mary Herman RN LDA Cath/EP Sheath 04/01/23; 0827; 6.5 Kenyan (Fr); Right, Anterior; Femoral; Venous 04/01/23 0827 by Mary Herman RN 04/01/23 1057 by Mary Herman RN LDA Cath/EP Sheath 04/01/23; 0833; 5.5 Kenyan (Fr); Right, Anterior; Femoral; Venous 04/01/23 0833 [...] Procedure Summary Date: 04/01/23 Room / Location: [facility] B[facility]LAB ROOM 4 / [facility] Anesthesia Start: 738 Anesthesia Stop: 1130 Procedure: ELECTROPHYSIOLOGY PROCEDURE Diagnosis: SVT (supraventricular tachycardia) (SVT (supraventricular tachycardia) [I47.10]) Providers: Jed Tovar MD Responsible Provider: Merlin Lozoya MD Anesthesia Type: general ASA Status: 3 All Anesthesia Providers: Anesthesiologist: Merlin Lozoya MD OFFICE CLERK ROUTINE: Jaspreet Perry CRNA Vitals Value Taken Time BP 104/58 04/01/23 1345 Temp 36.4 ??C (97.5 ??F) 04/01/23 1315 Pulse 66 04/01/23 1346 Resp 14 04/01/23 1346 SpO2 96 % 04/01/23 1346 Pain Level Vitals shown include unfiled device data. Patient Location: [facility] Level of Consciousness: Awake and Alert [...] risks discussed with patient. Plan discussed with OFFICE CLERK ROUTINE. Anesthesia Screening documented in this encounter Plan of Treatment Upcoming Encounters Date Type Department Care Team (Late st Contact Info) Description 10/08/2023 8:30 AM EDT Tech Visit Vascular Lab at [place] [phone] [place] [place] 10/08/2023 9:30 AM EDT Office [place] [address] MD [facility] [place] [place] [address] 10/21/2023 10:30 AM EDT Appointment Nuclear Medicine at [place] [phone] [place] [address] 10/21/2023 11:30 AM EDT Appointment [place] [address] [place] [address] 10/21/2023 12:30 PM EDT Appointment [place] [address] [place] [address] 10/21/2023 1:30 PM EDT Appointment [place] [phone] [place] [address] 10/21/2023 2:30 PM EDT Appointment [place] [address] Mary Reyes APRN [facility] [place] [address] 10/26/2023 4:00 PM EDT Office Visit Cardiology at [address] [phone] Jaspreet iKnsey MD [facility] [place] [address] 10/28/2023 9:00 AM EDT Office Visit [place] [address] 10/29/2023 10:00 AM EDT Clinical Support [place] [address] 10/29/2023 10:15 AM EDT Procedure visit [place] [address] 11/01/2023 5:00 PM EDT Office Visit Gastroenterology at [place] [phone] Selene Browning, PhD [facility] [address] 11/22/2023 4:40 PM EDT Office Visit Cardiology at [address] [phone] Porsha Mcdaniels MD [facility] [place] [address] 12/13/2023 10:00 AM EDT Clinical [place] [address] [facility] [place] [place] [address] documented as of this encounter Visit Diagnoses [...] mg documented in this encounter Care Teams Spring Layer Relationship Specialty Start Date End Date Ramses, Polo, PA [address] [place] [address] PCP - General Internal Medicine 06/09/21 documented as of this encounter
--- OUTSIDE RECORDS SUMMARY | 2023-10-05 17:06 | XMS_ITS | Encounter Summary ---
Author Organization [facility] [place] [address] Care Team Providers Care Palliative Senior Np Name Role Phone Polo Pearce Primary Care Provider [phone] Encounter Details Date Type Department Care Team (Late st Contact Info) Description 04/02/2023 Telephone Cardiology at [address] [phone] Ambreen Cartagena Social History Tobacco Use Types [...] see this patient in follow up at [facility] in 2-3 months. She had SVT ablation 04/01/23. Message sent Mary at [facility] to get pt scheduled there for f/up. Ambreen Cartagena Sr. Clinical Procedure [place]/Deli Cutter Slicer documented in this encounter Plan of Treatment Upcoming Encounters Date Type Department Care Team (Late st Contact Info) Description 10/08/2023 8:30 AM EDT Tech [place] [phone] [place] [place] 10/08/2023 9:30 AM EDT Office Visit [place] [address] MD [facility] [place] [address] 10/21/2023 10:30 AM EDT Appointment [place] [address] Mary Reyes APRN [facility] [place] [address] 10/21/2023 11:30 AM EDT Appointment [place] [address] Mary Reyes [facility] [address] 10/21/2023 12:30 PM EDT Appointment [place] [address] Mary Reyes [facility] [address] 10/21/2023 1:30 PM EDT Appointment [place] [address] Mary Reyes [facility] [place] [address] 10/21/2023 2:30 PM EDT Appointment [place] [address] [place] [address] 10/26/2023 4:00 PM EDT Office Visit Cardiology at [address] [phone] Jaspreet Kinsey MD [facility] [place] [address] 10/28/2023 9:00 AM EDT Office [place] [address] 10/29/2023 10:00 AM EDT Clinical [place] [address] 10/29/2023 10:15 AM EDT Procedure [place] [address] 11/01/2023 5:00 PM EDT Office [place] [address] Selene Browning, PhD [facility] [place] [address] 11/22/2023 4:40 PM EDT Office [place] [address] Porsha Mcdaniels MD [facility] [place] [address] 12/13/2023 10:00 AM EDT Clinical Support Gastroenterology at [place] [phone] Lucero Romero, RD [facility] [place] [address] documented as of this encounter Visit Diagnoses Not on filedocumented in this encounter Care Teams Palliative Senior Np Relationship Specialty Start Date End Date Polo Pearce PA [address] [place] [address] PCP - General Internal Medicine 06/09/21 documented as of this encounter
--- OUTSIDE RECORDS SUMMARY | 2023-10-05 17:06 | XMS_ITS | Encounter Summary ---
Author Organization [facility] [place] [address] Care Team Providers Care Shirt Cleaner Name Role Phone Polo Pearce Primary Care Provider [phone] Reason for Visit * Auth/Cert (Routine) Specialty Diagnoses / Procedures Referred By Jayant harris Referred To Contact Diagnoses NSTEMI (non-ST elevated myocardial infarction) NSTEMI Procedures ER Terrence Pantoja MD [facility] [place] [address] [facility] Referral ID Status Reason Start Date Expiration Date Visits Re quested Visits Authorized [id number] 1 1 Encounter Details Date Type Department Care Team (Late st Contact Info) Description 04/18/2023 9:00 AM EST - 04/18/2023 10:04 AM [place] [address] Dustin Carrasco MD [facility] [place] [address] CARDIAC CATHETERIZATION Social History Tobacco Use Types Packs/Day Years Used Date Smoking Tobacco: Never Smokeless Tobacco: Never Alcohol Use Standard Drinks/Week Comments Never 0 (1 standard drink = 0.6 oz pur e alcohol) [facility] Utilities Answer Date Recorded In the past 12 months has [employer], oil, or water [employer] threatened to shut off services in your [...] Loida Madrigal Patient Age: 53 y.o. Language: Mongolian Admit date: 04/16/2023 Discharge date and time: [...] lung disease secondary to obesity transferred from [facility] for further evaluation of exertional chest pressure and breathlessness. Abnormal OSH troponin 500 and repeat HS Trop at [facility] peak 27 with flat [...] discharge Inpatient Provider Contact Information: Cardiovascular Medicine [phone] Discharge Diagnoses (Hospital Problems) and Secondary Diagnoses [...] motion has increased. CTA PE protocol at [facility]- no PE but showed small pericardial effusion and some GG opacities. History of Presentation: Loida Madrigal is a 53 y.o. with hx of paroxysmal A-fib (diagnosed on 10/20/2022), pulmonary emboli on Eliquis, HFpEF (EF of 59%), supraventricular tachycardia (AVNRT since 06/2021) s/p EPS and SVTablation on 04/01/[address] Tovar on [facility], restrictive lung disease secondary to obesity presents from [facility] with complains of chest discomfort that started overnight. The patient has been experiencing ongoing chest pain, prompting admission on 02/11/23 primarily due to concerns about a NSTEMI indicated by elevated troponin levels and EKG changes noted at OSH. However, the observed EKG changes remained largely consistent with previous recordings. Troponin levels at [facility] showed a plateau at [...] again 10/15, improving with sublingua Nitro. At [facility] Vitals: HR 48, BP 115/42, [...] #Acute on chronic HFpEF Patient presented to [facility] on 04/16 with chest pain responsive to SL NTG. Troponin ~500x2. Transferredto [facility] for further evaluation. Troponin at [facility], 24>23 w/ repeat peak 27->26. [...] days. Refills: 0 fluticasone propionate 50 mcg/actuation [place], Suspension Commonly known as: Flonase 1 spray [...] 9:40 AM Jaspreet Kinsey MD Cardiology at [place] Arrive at: [facility] [address] [phone] 09/21/2023 3:00 PM Jaspreet Kinsey MD Cardiology at [place] Arrive at: [facility] [address] [phone] Discharge References/Attachments None Greater than 30 minutes was spent on this discharge including documentation, [id number] time withthe patient, patient education, parcel post order clerk, coordination with pharmacy and other [...] away. Stay on the phone. The emergency tank wagon operator will tell you what to do. [...] of 8AM-5PM please call the Cardiology Clinic [phone] to speak with a nurse. All other hours please call the Hospital Saddle Stitching Machine Operator [phone] and ask to speak to the tobacco sweeper on-call. Return to work: One week Follow up Appointments: Doctor Where Phone # Date Time PCP JOCY Franco [address] [place] [address] 04/28/2023 7:[address] Kinsey [facility] [address] 05/10/2023 9:40 AM * Attachments The following attachments cannot be sent through Care Everywhere. * Coronary Angiogram: Post-op (Mongolian) documented in this encounter Medications at Time [...] nightly as needed. empagliflozin (Jardiance) 10 mg TabletIndications:Specialty Sales Representative neal heart failure with preserved ejection fraction Take 1 tablet by mouth daily. 90 tablet 1 06/11/2021 rOPINIRole (Requip) 1 mg Tablet Take 2 mg by mouth 2 times daily. 07/16/2020 loratadine (Claritin) 10 mg Tablet Take 10 mg by mouth daily as needed. fluticasone propionate (FLONASE) 50 mcg/actuation [place], Suspension 1 spray by Each Nare route [...] reviewed with pt, pt wheeled to d/c [facility]. I agree with the information in this [...] note were not included. CARDIOLOGY APP1 - [facility] DAILY PROGRESS NOTE Page [phone] to reach a provider 28/09 Admit Date: [...] disease secondary to obesity who presented to [facility] on 04/16 with chest pain responsive to SL NTG. Troponin ~500x2. Transferred to [facility] for further evaluation. Troponin at [facility], 24>23. Reports exertional chest pressure [...] and no pericardial effusion. She underw ent [facility] on 04/18 which showed non-obstructive ASCVD. Initiated [...] Cardiopulmonary Resuscitation - Inpatient Disposition: Discharge Location: [facility] Basic Mobility Raw Score: 24 PT: OT: PCP JOCY Franco [phone] Discussed with MD Kurt Ray PA-C APP1 pager [phone] 04/22/2023 CV HOSPITALIST ADDENDUM Date of Service: [...] 04/21/2023 6:10 PM EST CARDIOLOGY APP1 - [facility] DAILY PROGRESS NOTE Page [phone] to reach a provider 28/09 Admit Date: [...] 12 CRP <=4.9 mg/L <3.0 <3.0 OSH [facility] troponin ~500. Telemetry: I have [...] disease secondary to obesity who presented to [facility] on 04/16 with chest pain responsive to SL NTG. Troponin ~500x2. Transferred to [facility] for further evaluation. Troponin at [facility], 24>23. Reports exertional chest pressure [...] occur Diet: Daily Healthy Menu Choices/Cardiac diet ([facility]-Diet) 2 GM NA DVT Prophylaxis: DOAC Code status: Attempt Cardiopulmonary Resuscitation - Inpatient Disposition: Discharge Location: AM-[facility] Basic Mobility Raw Score: 22 PT: OT: PCP JOCY Franco [phone] * Eufemia Copeland MD - 04/20/2023 4:34 PM EST CARDIOLOGY APP1 - [facility] DAILY PROGRESS NOTE Page [phone] to reach a provider 28/09 Admit Date: [...] 12 CRP <=4.9 mg/L <3.0 <3.0 OSH [facility] troponin ~500. Telemetry: I have [...] disease secondary to obesity who presented to [facility] on 04/16 with chest pain responsive to SL NTG. Troponin ~500x2. Transferred to [facility] for further evaluation. Troponin at [facility], 24>23. Reports exertional chest pressure [...] occur Diet: Daily Healthy Menu Choices/Cardiac diet ([facility]-Diet) 2 GM NA; 2000 mL FLUID DVT Prophylaxis: DOAC Code status: Attempt Cardiopulmonary Resuscitation - Inpatient Disposition: Discharge Location: AM-P[facility] Basic Mobility Raw Score: 24 PT: OT: PCP JOCY Franco [phone] * Carrol La PA - 04/19/2023 12:32 PM EST CARDIOLOGY APP1 - [facility] DAILY PROGRESS NOTE Page [phone] to reach a provider 28/09 Admit Date: [...] 12 CRP <=4.9 mg/L <3.0 <3.0 OSH [facility] troponin ~500. EKG: Sinus bradycardia, 47 bpm, PAC, possible left atrial enlargement, possible lateral infarct, QTc 511. Telemetry: I have personally reviewed and interpreted the telemetry from the last 24 hours. Resultsshow sinus bradycardia with HR 50s, PVCs, heart rate climbs to 70s with activity.. Imaging: [facility] 04/18/23 Conclusions: * Nonobstructive coronary artery disease [...] motion has increased. CTA PE protocol at [facility]- no PE but showed small [...] acute aortopathy. 4. No acute pulmonary findings. [facility] 06/09/2021-RA 4, PA 38/15 (24) PCWP 11, CO/CI 3.14/1.6. [facility] 08/30/2019-normal coronary arteries. Assessment & Plan: Loida [...] disease secondary to obesity who presented to [facility] on 04/16 with chest pain responsive to SL NTG. Troponin ~500x2. Transferred to [facility] for further evaluation. Troponin at [facility], 24>23. Reports exertional chest pressure [...] and no pericardial effusion. She underw ent [facility] on 04/18 which showed non-obstructive ASCVD. Unclear [...] continues. Diet: Daily Healthy Menu Choices/Cardiac diet ([facility]-Diet) 2 GM NA; 2000 mL FLUID DVT Prophylaxis: DOAC Code status: Attempt Cardiopulmonary Resuscitation - Inpatient Disposition: Discharge Location: [facility] Basic Mobility Raw Score: 24 PT: OT: PCP JOCY Franco [phone] Discussed with MD Carrol Aly PA-C APP1 Pager: [phone] 04/19/2023 Nikkie Albarran RCP - 04/18/2023 10:10 [...] note were not included. CARDIOLOGY APP1 - [facility] DAILY PROGRESS NOTE Page [phone] to reach a provider 28/09 Admit Date: [...] breathlessness. Awaiting cardiac catheterization potentially today if School Secretary availability allows.She remains on ACS therapies. Medications: [...] 12 CRP <=4.9 mg/L <3.0 <3.0 OSH [facility] troponin ~500. EKG: Sinus bradycardia, [...] motion has increased. CTA PE protocol at [facility]- no PE but showed small [...] lung disease secondary to obesity presents from [facility] with complains of exertional chest [...] atorvastatin 80mg PO daily, and not using beta-tiffanei with sinus bradycardia. Sublingual NTG as needed and if recurrent discomforts not responding, consider NTG infusion. - NTG + morphine PRN chest pain or NTG drip if ongoing chest pain -[facility] 04/18 depending on School Secretary availability. #Hx of pAfib #Hx of AVNRT [...] Score: 24 PT: OT: PCP JOCY Franco [phone] Discussed with MD Kurt Sheppard PA-C APP1 pager [phone] 04/18/2023 * Kurt Silveira PA - 04/17/2023 7:15 AM EST Images from the original note were not included. CARDIOLOGY APP1 - [facility] DAILY PROGRESS NOTE Page [phone] to reach a provider 28/09 Admit Date: [...] 12 CRP <=4.9 mg/L <3.0 <3.0 OSH [facility] troponin ~500. EKG: Sinus bradycardia, [...] motion has increased. CTA PE protocol at [facility]- no PE but showed small [...] acute aortopathy. 4. No acute pulmonary findings. [facility] 06/09/2021-RA 4, PA 38/15 (24) PCWP 11, CO/CI 3.14/1.6. [facility] 08/30/2019-normal coronary arteries. Assessment & Plan: Loida [...] lung disease secondary to obesity presents from [facility] with complains of exertional chest [...] intensity atorvastatin 80mg PO daily, and holding beta-tifafnie with sinus bradycardia. Sublingual NTG as needed and if recurrent discomforts not responding, consider NTG infusion. - NTG + morphine PRN chest pain or NTG drip if ongoing chest pain -[facility] 04/18 or 04/19 depending on School Secretary availability. #Hx of pAfib #Hx of AVNRT sp EPS and Ablation - hold eliquis. Last taken on 04/16/23 am. - Continue IV heparin. # Hx of PE- continue with IV heparin Diet: No diet orders on file DVT Prophylaxis: DOAC Code status: Attempt Cardiopulmonary Resuscitation - Inpatient Disposition: Discharge Location: AM-[facility] Basic Mobility Raw Score: 14 PT: OT: PCP JOCY Franco [phone] Discussed with MD Kurt Sheppard PA-C APP1 pager [phone] 04/17/2023 documented in this encounter H&P Notes [...] SVTablation on 04/01/[address] Tovar on [facility], restrictive lung disease secondary to obesity presents from [facility] with complains of chest discomfort that started overnight. The patient has been experiencing ongoing chest pain, prompting admission on 02/11/23 primarily due to concerns about a NSTEMI indicated by elevated troponin levels and EKG changes noted at OSH. However, the observed EKG changes remained largely consistent with previous recordings. Troponin levels at [facility] showed a plateau at [...] again 10/15, improving with sublingua Nitro. 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 fluticasone propionate (FLONASE) 50 mcg/actuation [place], Suspension 1 spray by Each Nare route [...] SVTablation on 04/01/[address] Tovar on [facility], restrictive lung disease secondary to obesity presents from [facility] with complains of chest discomfort [...] N/A Patient is insured through: Primary Insurance: [employer] [place] Pay[place] [employer] [place] / Plan[place] / Product Type: *No Product type* / Secondary Insurance: N/A Prescription Coverage: Yes This plan was formulated with input from patient and team. All are in agreement with plan. * Consult Note - Maegan Mike APRN - 04/22/2023 10:38 AM EST Images from the original note were not included. [facility] [place] [address] INPATIENT CARDIOLOGY CONSULT PROGRESS NOTE Interval events: [...] insights. Discussed with MD Maegan De Leon, ENERGY ASSISTANT Pager [phone] 04/22/2023 Associated attestation - Jaspreet Kinsey MD [...] Appropriate) * Plan of Care - Zoila oRoney RN - 04/21/2023 6:33 AM EST Problem: [...] as Appropriate) * Plan of Care - Cihlo Nickerson RN - 04/20/2023 6:49 PM EST [...] Tatum MSW - 04/20/2023 2:22 PM EST CLOTH DESIZING RANGE OPERATOR CHIEF received a consult to support patient with financial concerns. CLOTH DESIZING RANGE OPERATOR CHIEF met with patient and introduced self. Patient stated due to hospitalization, she has been out of work and feeling stress around not being able to pay bills. I have a car payment and other bills and it's like I have to choose which one to pay and which one not to pay. CLOTH DESIZING RANGE OPERATOR CHIEF validated patient's stress around financial concerns. CLOTH DESIZING RANGE OPERATOR CHIEF asked patient if she has applied for [employer] or any other state benefits. Patient stated that she has, but is over the household income criteria to qualify for benefits. Patient shared that she owns her home outright and mainly concerned about making her car payment and transportation home. MSWstated that care management will help arrange for a ride, if needed. CLOTH DESIZING RANGE OPERATOR CHIEF provided patient with community resources such as the [facility] Food Directory, the [facility] Community Action phone number, and the [facility] [place] on Aging contact info. CLOTH DESIZING RANGE OPERATOR CHIEF available to support patient should anything else [...] Admitted From: Transfer from another hospital Location: [facility] Reason for Hospitalization: chest pain and cough Covid Vaccination Status: 1st, 2nd & booster Last COVID test: Lab Results Component Value Date [id number] Not Detected 06/13/2021 Past medical History: Past [...] shut off services in your home?: Yes ([employer] is currently threatening to shut off electricity [...] ([facility]) Home Address confirmed as: [address] [facility] [address] Social & Family Supports: All names listed [...] Specific Information: N/A Health/Prescription Coverage: Primary Insurance: [employer] Payor[place] [employer] [place] / Plan: [place] / Product Type: *No Product type* / Secondary Insurance: N/A ; Prescription Coverage: Yes Preferred Pharmacy: [id number] - [place], [place] - [address] [facility] [address] [facility] - [place], [place] - [address] [facility] [facility] [address] [facility] [address] Status: Patient is a : No Primary Care Provider confirmed: JOCY Franco [phone] Patient/Caregiver Goals of Treatment: home w / family when MR Potential Needs for Transition of Care: other (see comments) (CLOTH DESIZING RANGE OPERATOR CHIEF support; pt's spouse was denied twice for [...] Concerns to be Addressed: financial/insurance, discharge planning; CLOTH DESIZING RANGE OPERATOR CHIEF consult placed to discuss available resources Assessment: Patient is admitted to [facility] service for NSTEMI Plan: pending clinical course, but likely home w/o services when MR A member of the Care Management team will continue to monitor progress, follow for continuity of care and assist with transition of care planning. * Consult Note - Otis Rader MD - 04/19/2023 10:00 AM EST Images from the original note were not included. [facility] [place] [address] INPATIENT CARDIOLOGY CONSULT NOTE Reason for Consult: [...] ACS with DAPT and heparin prior to [facility] 04/18, which was negative for any obstructive [...] Went to cathlab, came back ~1115am, s/p [facility] with no coronary artery disease seen. Right [...] for further details. JOCY Marie 04/17/2023 Pager [phone] * Plan of Care - Sudhakar Smith [...] AM EDT Tech [place] [address] [place] 10/08/2023 9:30 AM EDT Office Visit Vascular Surgery at [address] MD [facility] [place] [address] 10/21/2023 10:30 AM EDT Appointment Nuclear Medicine at [address] [place] [address] 10/21/2023 11:30 AM EDT Appointment Nuclear Medicine at [place] [phone] Mary Reyes [facility] [place] [address] 10/21/2023 12:30 PM EDT Appointment Nuclear Medicine at [place] [phone] [place] [address] 10/21/2023 1:30 PM EDT Appointment [place] [address] Mary Reyes [facility] [place] [address] 10/21/2023 2:30 PM EDT Appointment [place] [address] Mary Reyes [facility] [place] [address] 10/26/2023 4:00 PM EDT Office Visit Cardiology at [address] [address] Jaspreet Kinsey MD [facility] [place] [address] 10/28/2023 9:00 AM EDT Office [place] [address] 10/29/2023 10:00 AM EDT Clinical [place] [address] 10/29/2023 10:15 AM EDT Procedure [place] [address] 11/01/2023 5:00 PM EDT Office [place] [phone] Selene Browning, PhD [facility] [place] [address] 11/22/2023 4:40 PM EDT Office Visit Cardiology at [address] [phone] Porsha Mcdaniels MD [facility] [place] [address] 12/13/2023 10:00 AM EDT Clinical [place] [phone] [facility] [place] [address] documented as of this encounter Procedures Procedure [...] have questions please contact the health healthcare business analyst that requested your imaging first. ? 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 Following IV administration of 26.5 mCi technetium 99m sestamibi, SPECT-CT of the heart was obtained. Following IV injection of 8.8 mCi 81-bqlrpv-1-deoxyglucose (FDG) and a standard uptake of approximately [...] obtained. Following IV injection of 8.8 mCi 54-axdicu-9-deoxyglucose (FDG) and astandard uptake of approximately 60 [...] who have questions please contactthe health healthcare business analyst that requested your imaging first. Electronically signed by: Humberto Qureshi MD, [facility]([phone]), at 05/06/2023 11:09 AM Maegan Mike ENERGY ASSISTANT IMG PET ORDERABLE S * MRI Cardiac [...] have questions please contact the health healthcare business analyst that requested your imaging first. ? Narrative [...] who have questions please contactthe health healthcare business analyst that requested your imaging first. Terrence Maloney MD IMG MRI ORDERABLES * Hemogram (04/21/2023 3:40 AM EST) WBC 7.1 4.0 - 9.5 x10(3)/[facility] LABORATORY RBC 4.59 4.00 - 5.21 x10(6)/[facility] [...] CENTER LABORATORY Platelets 221 145 - 357 x10(3)/[facility] LABORATORY RDWSD 43.5 37.0 - 46.0 fL [facility] LABORATORY RDWCV 12.6 11.5 - 14.1 % [facility] LAB[facility] MPV 11.1 7.6 - 12.9 fL [facility] nRBC % Auto 0.0 % [facility] LAB[facility] nRBC Abs Auto 0.000 0.000 - 0.000 x10(3)/mcL [facility] Blood 04/21/2023 3:40 AM EST 04/21/2023 3:58 AM EST Narrative Resulting Agency Comment Spec In Lab Ailyn Knight MD HEMATOLOGY ORDERABLE S Performing Organization Address City/State/[facility] Co de Phone Number [facility] [place] [address] * (ABNORMAL) BMP w/fasting Glucose (04/21/2023 3:40 [...] of Diabetes Mellitus, Position Statement from the [place] [employer]. ??Diabetes Care, Volume 33, Supplement [...] MD CHEMISTRY ORDERABLES Performing Organization Address City/[facility]/ZIP Co de Phone Number [facility] [place] [address] * Magnesium (04/21/2023 3:40 AM EST) Magnesium 0.90 0.69 - 1.07 mmol/L [facility] Blood 04/21/2023 3:40 AM EST 04/21/2023 3:58 AM EST Narrative Resulting Agency Comment Spec In Lab Ailyn Knight MD CHEMISTRY ORDERABLES Performing Organization Address City/[facility]/ZIP Co de Phone Number [facility] [place] [address] * (ABNORMAL) Troponin (04/20/2023 4:44 PM EST) Troponin-T HS 26(H) <=14 ng/L [facility] Comment: This patient's troponin T [...] troponin value can be found in the [facility] Laboratory Test Catalog Troponin - [facility] Laboratory Test Catalog Reference: Fourth [place] Definition of Myocardial Infarction. Journal of the [place] [employer] 2018;72:3665-6754 Blood 04/20/2023 4:44 PM EST 04/20/2023 4:53 PM EST Narrative Resulting Agency Comment Spec In Lab Eufemia Copeland MD CHEMISTRY ORDERABL ES Performing Organization Address City/State/[facility] Co de Phone Number [facility] [place] [address] * Duplex for DVT, Arm, Unilat (04/20/2023 4:22 PM EST) VB Text Report Department: Vascular Surgery Lab Patient: [id number] (NEISHA, MELINDA) CPT: 35235 Referring Physician: TERRENCE MALONEY ?? Phone: Indications: [...] PM EST) Troponin-T HS 27(H) <=14 ng/L [facility] Comment: This patient's troponin T [...] troponin value can be found in the [facility] Hospital Laboratory Test Catalog Troponin - [facility] Laboratory Test Catalog Reference: Fourth [place] Definition of Myocardial Infarction. Journal of the [place] [employer] 2018;72:0090-5760 Blood 04/20/2023 1:47 PM EST 04/20/2023 2:18 PM EST Narrative Resulting Agency Comment Spec In Lab Eufemia Copeland MD CHEMISTRY ORDERABL ES Performing Organization Address City/[facility]/ZIP Co de Phone Number [facility] [place] [address] * (ABNORMAL) Troponin (04/20/2023 10:48 AM EST) Troponin-T HS 24(H) <=14 ng/L [facility] Comment: This patient's troponin T [...] troponin value can be found in the [facility] Laboratory Test Catalog Troponin - [facility] Laboratory Test Catalog Reference: Fourth [place] Definition of Myocardial Infarction. Journal of the [place] [employer] 2018;72:6772-4382 Blood 04/20/2023 10:4 8 AM EST 04/20/2023 11:03 AM EST Narrative Resulting Agency Comment Spec In Lab Eufemia Copeland MD CHEMISTRY ORDERABL ES Performing Organization Address City/[facility]/ZIP Co de Phone Number [facility] [place] [address] * EKG 12 Lead (04/20/2023 10:23 AM EST) Ventricular rate 60 BPM MUSE SYSTEM Atrial Rate 60 BPM MUSE SYSTEM P-R Interval 170 ms MUSE SYSTEM QRS Duration 86 ms MUSE SYSTEM Q-T Interval 470 ms MUSE SYSTEM QTC Calculated (Bezet) 470 ms MUSE SYSTEM Calculated P [place] 39 degrees MUSE SYSTEM Calculated R [place] 63 degrees MUSE SYSTEM Calculated T [place] -16 degrees MUSE SYSTEM INTERPRETATION Normal sinus [...] leads Confirmed by MD Eli, Manish [place] ([id number]) on 04/22/2023 12:10:07 PM MUSE SYSTEM 04/20/2023 10:2 3 AM EST 04/22/2023 12:10 PM EST Terrence Maloney MD ECG ORDERABLES MUSE SYSTEM * Hemogram (04/20/2023 3:11 AM EST) Pathologist [facility] WBC 6.6 4.0 - 9.5 x10(3)/[facility] LABORATORY RBC 4.59 4.00 - 5.21 x10(6)/[facility] [...] CENTER LABORATORY Platelets 231 145 - 357 x10(3)/[facility]ORATORY RDWSD 43.6 37.0 - 46.0 fL [facility] RDWCV 12.6 11.5 - 14.1 % [facility] MPV 11.0 7.6 - 12.9 fL [facility] nRBC % Auto 0.0 % [facility] nRBC Abs Auto 0.000 0.000 - 0.000 x10(3)/mcL [facility] Blood 04/20/2023 3:11 AM EST 04/20/2023 3:24 AM EST Narrative Resulting Agency Comment Spec In Lab Ailyn Knight MD HEMATOLOGY ORDERABLE S Performing Organization Address City/State/[facility] Co de Phone Number [facility] [place] [address] * (ABNORMAL) BMP w/fasting Glucose (04/20/2023 3:11 [...] of Diabetes Mellitus, Position Statement from the [place] [employer]. ??Diabetes Care, Volume 33, Supplement [...] Knight MD CHEMISTRY ORDERABLES Performing Organization Address [facility]/ZIP Co de Phone Number [facility] [place] [address] * Magnesium (04/20/2023 3:11 AM EST) Magnesium 0.91 0.69 - 1.07 mmol/L [facility] Blood 04/20/2023 3:11 AM EST 04/20/2023 3:24 AM EST Narrative Resulting Agency Comment Spec In Lab Ailyn Knight MD CHEMISTRY ORDERABLES Performing Organization Address City/[facility]/ZIP Co de Phone Number [facility] [place] [address] * Respiratory Panel PCR (04/19/2023 2:05 PM EST) Resp Panel Source ADVANCED MANAGER Swab SHERIF [facility] Resp Panel PCR Negative Negative [facility] Comment: Respiratory Panels are performed on the Viewpoints, using multiplexed PCR nucleic acid detection. ??Negative results do not preclude respiratory infection and should not be used as the sole basis for diagnosis, treatment or other management decisions. Adenovirus Not Detected Not Detected [facility] [place] Coronavirus HKU1 Not Detected Not Detected [facility] [place] Coronavirus NL63 Not Detected Not Detected [facility] [place] Coronavirus 229E Not Detected Not Detected [facility] Coronavirus OC43 Not Detected Not Detected [facility] SARS-CoV-2 Not Detected Not Detected [facility] Comment: Testing for SARS-CoV-2 (Severe acute respiratory syndrome coronavirus 2) to aid in the diagnosis of COVID-19 is performed using the BioFire Respiratory Panel 2.1 (CorkCRM) as authorized by the FDA issued Emergency Use Authorization (EUA). This panel also tests for multiple other viral and bacterial pathogens. This assay is intended for In-vitro Diagnostic (IVD) use with nasopharyngeal swabs in viral transport media. The assay is performed based on the instructions for use and additional guidance provided by the FDA. Testing is performed in laboratories within the [facility], each of which is certified under the [...] fact sheets at the following FDA website: https://www.fda.gov/medical-devices/qqhinhtlhhy-iqrmbnz-8356-fkzge-89-txwnpuqhe- use-a jlseoaftysszt-aalnfgd-rcjfmft/qxiid-umhwpecgqta-fqzs Human Metapneumovirus Not Detected Not Detected [facility] [...] AL ORDERABLES [facility] [place] [address] * (ABNORMAL) Urine culture (04/19/2023 10:25 AM EST) Pathologist [facility] Urine Culture 10,000-49,000 cfu/ml mixed mucosal elmer Note: Culture shows multiple bacterial species suggesting mucosal contamination. (A) [facility] Clean Catch Urine 04/19/2023 10:25 AM EST 04/19/2023 12:49 PM EST Narrative Resulting Agency Comment Spec In Lab Carrol SANDRA MICROBIOLOGY - GENER AL ORDERABLES Performing Organization Address [facility] Co de Phone Number [facility] [place] [address] * (ABNORMAL) Urinalysis Microscopic Exam (04/19/2023 10:25 AM EST) Pathologist [facility] RBC UA 1 0 - 4 /HPF [facility] WBC UA 10(H) 0 - 5 /HPF [facility] Squam Epith UA 4 <=4 /HPF [facility] Hyaline Cast UA 1 0 - 2 /LPF [facility] Clean Catch Urine 04/19/2023 10:25 AM EST 04/19/2023 11:08 AM EST Narrative Resulting Agency Comment Spec In Lab Carrol SANDRA URINE ORDERABLES Performing Organization Address [facility]/ZIP Co de Phone Number [facility] [place] [address] * (ABNORMAL) Urinalysis with reflex Culture (04/19/2023 10:25 AM EST) Pathologist [facility] Glucose UA >=1000(Crit ical) Negative mg/dL [facility] Leukocytes UA Small(A) Negative [facility] Appearance UA Clear Clear [facility] Spec [place] UA 1.024 1.005 - 1.030 [facility] Color UA Yellow Yellow [facility] Culture Reflexed Yes [facility] Clean Catch Urine 04/19/2023 10:25 AM EST 04/19/2023 11:08 AM EST Narrative Resulting Agency Comment Spec In Lab Ailyn Knight MD URINE ORDERABLES [facility] [place] [address] * Arterial Duplex Arm, Unilat (04/19/2023 9:40 AM EST) VB Text Report Department: Vascular Surgery Lab Patient: [id number] (LOIDA MADRIGAL) CPT: 50635 Referring Physician: AILYN KNIGHT ?? Phone: Indications: [...] AM EST) WBC 7.5 4.0 - 9.5 x10(3)/[facility] LABORATORY RBC 4.86 4.00 - 5.21 x10(6)/[facility] Hemoglobin 14.8 11.7 - 15.5 g/dL [facility] [place] Hematocrit 45.5 35.7 - 45.8 % [facility] MCV 93.6 82.6 - 94.4 fL [facility] [place] MCH 30.5 27.1 - 32.0 pg [facility] MCHC 32.5 31.7 - 35.0 g/dL [facility] Platelets 240 145 - 357 x10(3)/[facility] LABORATORY RDWSD 43.8 37.0 - 46.0 fL [facility] RDWCV 12.7 11.5 - 14.1 % [facility] MPV 11.0 7.6 - 12.9 fL [facility] nRBC % Auto 0.0 % [facility] nRBC Abs Auto 0.000 0.000 - 0.000 x10(3)/[facility] Blood 04/19/2023 2:40 AM EST 04/19/2023 2:57 AM EST Narrative Resulting Agency Comment Spec In Lab Ailyn Knight MD HEMATOLOGY ORDERABLE S Performing Organization Address City/State/[facility] Co de Phone Number [facility] [place] [address] * (ABNORMAL) BMP w/fasting Glucose (04/19/2023 2:40 [...] of Diabetes Mellitus, Position Statement from the [place] [employer]. ??Diabetes Care, Volume 33, Supplement [...] In Lab Ailyn Knight MD CHEMISTRY ORDERABLES [facility] [place] [address] * Magnesium (04/19/2023 2:40 AM EST) Magnesium 0.97 0.69 - 1.07 mmol/L [facility] Blood 04/19/2023 2:40 AM EST 04/19/2023 2:57 AM EST Narrative Resulting Agency Comment Spec In Lab Ailyn Knight MD CHEMISTRY ORDERABLES Performing Organization Address [facility]/State/ZIP Co de Phone Number [facility] [place] [address] * CARDIAC CATHETERIZATION (04/18/2023 11:05 AM EST) Anatomical Region Laterality Modality Other Narrative 04/19/2023 6:57 AM EST ?[facility] ? Cardiac Catheterization/Intervention Report ? Patient Name: Neisha, Loida ? Procedure Date: 04/18/2023 ? A #: [id number] ? Primary Physician: Dustin Carrasco ? Case #: [id number] ? File Name: [id number] ? Catheterization Order Number: [id number] ? [facility] ? Final Report [place], [place] ? Patient Name: ? Loida Neisha ? ID#: ?[id number] ? : ?1970 ? Procedure Date: ? April 18, 2023 ?Case #: ? [id number] ? Room: ? 6 ? Case Physician: [...] was Urgent. The indication for ?the laboratory veterinarian visit is ACS greater than 24 hrs. [...] nurse. ??Case time = 00:28. ?Dr. Dustin Carracso M.D. performed the coronary angiography and left heart ?catheterization. ? Dustin Carrasco M.D. ? Electronically Signed by: Dustin Carrasco M.D. ? Report Finalized: 04/18/2023 ??12:13 ? Report Last Ammended: 05/03/2023 ??07:49 ? Procedure Note uDstin Carrasco MD - 05/03/2023 [facility] Cardiac Catheterization/Intervention Report Patient Name: Loida Madrigal Procedure Date: 04/18/2023 A #: [id number] Primary Physician: Dustin Carrasco Case #: [id number] File Name: [id number] Catheterization Order Number: [id number] [facility] FinalReport [place], [place] Patient Name: Loida Madrigal ID#:[id number] :1970 Procedure Date: April 18, 2023 Case [...] patient was designated as ASA Class III. [facility] is 4: Vulnerable. Diagnostic [...] procedure was Urgent. The indicationfor the laboratory veterinarian visit is ACS greater than 24 hrs. [...] units of heparin were administered. A total [id number] of Omnipaque were opened, 65cc of Omnipaque were administered [id number] of Omnipaque were wasted. Radiation: Fluoro time [...] ORDERABLE S [facility] [place] [address] * Differential, Automated (04/18/2023 2:10 AM EST) Neutrophils % 51.4 % [facility] Neutr Abs (ANC) 3.43 1.70 - 6.10 x10(3)/[facility] LABOR[facility] Lymphocytes % 33.8 % [facility] Lymphocytes Abs 2.2 0.9 - 3.2 x10(3)/[facility] Monocytes % 9.9 % [facility] Monocyte Abs 0.7 0.3 - 0.9 x10(3)/[facility] Eosinophils % 3.9 % [facility] Eosinophils Abs 0.3 0.0 - 0.4 x10(3)/[facility] Basophils % 0.8 [...] 0.04 x10(3)/[facility] Blood 04/18/2023 2:10 AM EST 04/18/2023 2:44 AM EST Narrative Resulting Agency Comment Spec In Lab Terrence Maloney MD HEMATOLOGY ORDERABLE S Performing Organization Address City/State/[facility] Co de Phone Number [facility] [place] [address] * Hemogram (04/18/2023 2:10 AM EST) WBC 6.7 4.0 - 9.5 x10(3)/[facility] LABORAT[facility] RBC 4.93 4.00 - 5.21 x10(6)/[facility] Hemoglobin 15.2 11.7 - 15.5 g/dL [facility] Hematocrit 44.9 35.7 - 45.8 % [facility] MCV 91.1 82.6 - 94.4 fL [facility] MCH 30.8 27.1 - 32.0 pg [facility] MCHC 33.9 31.7 - 35.0 g/dL [facility] Platelets 233 145 - 357 x10(3)/[facility] LABORATORY RDWSD 42.0 37.0 - 46.0 fL [facility] RDWCV 12.8 11.5 - 14.1 % [facility] MPV 11.3 7.6 - 12.9 fL [facility] nRBC % Auto 0.0 % [facility] nRBC Abs Auto 0.000 0.000 - 0.000 x10(3)/[facility] Blood 04/18/2023 2:10 AM EST 04/18/2023 2:44 AM EST Narrative Resulting Agency Comment Spec In Lab Terrence Maloney MD HEMATOLOGY ORDERABLE S Performing Organization Address [facility] Co de Phone Number [facility] [place] [address] * Heparin (unfractionated) Level (04/18/2023 2:10 AM EST) Heparin UFH Level 0.50 IU/mL [facility] [...] MD HEMATOLOGY ORDERABLE S Performing Organization Address [facility]/ZIP Co de Phone Number [facility] [place] [address] * (ABNORMAL) BMP w/fasting Glucose (04/18/2023 2:10 [...] of Diabetes Mellitus, Position Statement from the [place] [employer]. ??Diabetes Care, Volume 33, Supplement [...] In Lab Ailyn Knight MD CHEMISTRY ORDERABLES [facility] [place] [address] * Magnesium (04/18/2023 2:10 AM EST) Magnesium 1.02 0.69 - 1.07 mmol/L [facility] Blood 04/18/2023 2:10 AM EST 04/18/2023 2:44 AM EST Narrative Resulting Agency Comment Spec In Lab Ailyn Knight MD CHEMISTRY ORDERABLES Performing Organization Address City/[facility]/ZIP Co de Phone Number [facility] [place] [address] * LDL Cholesterol, Direct (04/18/2023 2:10 AM EST) LDL Chol Direct 105 mg/dL [facility] Comment: Lowest Risk: <100 mg/dL Lower Risk: 100-129 mg/dL Borderline High Risk: 130-159 mg/dL High Risk: 160-189 mg/dL Very High Risk: >gm=244 mg/dL Blood 04/18/2023 2:10 AM EST 04/18/2023 2:44 AM EST Narrative Resulting Agency Comment Spec In Lab Terrence Maloney MD CHEMISTRY ORDERABLES Performing Organization Address City/[facility] Co de Phone Number [facility] [place] [address] * Hemoglobin A1c (04/18/2023 2:10 AM EST) [...] Mellitus, Diabetes Care 2013; 36: Suppl. 1, S67-81 Est Avg Gluc 115 mg/dL [facility] Blood 04/18/2023 2:10 AM EST 04/18/2023 2:44 AM EST Narrative Resulting Agency Comment Spec In Lab Terrence Maloney MD CHEMISTRY ORDERABLES [facility] [place] [address] * Lipid Panel (Reflex Direct LDL) (04/18/2023 2:10 AM EST) Chol, Total 173 mg/dL [facility] Comment: Lower Risk: <200 mg/dL Average Risk: 200-239 mg/dL Higher Risk: >hu=614 mg/dL Triglycerides 174 mg/dL [facility] Comment: Average Risk/Lower Risk: <150 mg/dL Borderline High Risk: 150-199 mg/dL High Risk: 200-499 mg/dL Very High Risk: >kw=165 mg/dL HDL 44 mg/dL [facility] Comment: Males: ?? Higher Risk: <40 mg/dL Females: ?? Higher Risk: <50 mg/dL LDL Cholesterol 94 mg/dL [facility] Comment: Lowest Risk: <100 mg/dL Lower Risk: 100-129 mg/dL Borderline High Risk: 130-159 mg/dL High Risk: 160-189 mg/dL Very High Risk: >zu=662 mg/dL Chol/HDL Ratio 3.9 ratio [facility] Lipid Interpretation See Note [facility] Comment: Lipid management should be guided by a patient? s ASCVD risk, goals and preferences. ACC/AHA Guidelines recommend high intensity statin if clinical ASCVD or LDL greater than or equal to 190 mg/dL. http://tinyurl.com/TOL-BHL-Jkyzjqsxc Adults aged 40-75 with LDL 70-189 mg/dL should have their 10 year ASCVD risk estimated with the ACC/AHA ASCVD risk director [employer] http://tools.acc.org/CBORY-Bllg-Yxvxnjjlf/ Statin should be discussed if risk greater [...] Maloney MD CHEMISTRY ORDERABLES Performing Organization Address [facility]/ZIP Co de Phone Number [facility] [place] [address] * POCT Glucose (04/17/2023 7:44 PM EST) POC Glucose 128 65 - 199 mg/dL [facility] Comment: Supplemental ranges: <140 mg/dL before meals <180 mg/dL all other times of the day Blood 04/17/2023 7:44 PM EST 04/17/2023 7:44 PM EST Ailyn Knight MD POINT OF CARE TEST O RDERABLES Performing Organization Address [facility] Co de Phone Number [facility] [place] [address] * (ABNORMAL) Heparin (unfractionated) Level (04/17/2023 6:01 PM EST) Heparin UFH Level 1.14(Crit ical) IU/mL [facility] [...] MD HEMATOLOGY ORDERABLE S Performing Organization Address [facility] Co de Phone Number [facility] [place] [address] * (ABNORMAL) Heparin (unfractionated) Level (04/17/2023 12:45 [...] MD HEMATOLOGY ORDERABLE S Performing Organization Address [facility] Co de Phone Number [facility] [place] [address] * ECHO LMTD W CONTRAST W LMTD SPEC DOPP COLOR DOPP (04/17/2023 11:59 AM EST) EF 58 HEARTLAB SYSTEM Anatomical Region Laterality Modality Cardiac Other 04/17/2023 10:2 4 AM EST Narrative 04/17/2023 12:09 PM [place] [address] [place] [address] ? Echocardiogram Report Name: NEISHA, LOIDA ? Study Date: 04/17/2023 10:24 AMBP: 114/64 mmHg ? [facility] 1970 ? Height: 160 cm ? Account: [id number] Age: 53 yrs ? Weight: 98 kg Gender: Female ?BSA: 2.0 m2 Ordering Physician: TERRENCE MALONEY Referring Physician: TERRENCE MALONEY Performed By: HAIM Becerra Reason For Study: Chest pain; NSTEMI Exam Location: [facility]. Interpretation Summary Left ventricle is [...] wall motion has increased. Procedure Limited - 59404. Image enhancement Optison was used for left [...] Note Jaspreet Kinsey MD - 04/17/2023 [address] [place] [id number] Echocardiogram Report Name: LOIDA MADRIGAL Study Date: 0:24 AMBP: 114/64 mmHg Patient Location: : 1970 Height: 160 cm Account: [id number] Age: 53 yrs Weight: 98 kg Gender: Female BSA: 2.0 m2 Ordering Physician: TERRENCE MALONEY Referring Physician: TERRENCE MALONEY Performed By: HAIM Becerra Reason For Study: Chest pain; NSTEMI Exam Location: [facility]. Interpretation Summary Left ventricle is normal in size and wall thickness. Normal globalsystolic function with regional wall motion abnormalities as ascribed on the anterior/anterolateral aspect. Right ventricle is normal in size and systolic function. No significant cardiac valve findings. No pericardial effusion. Compared to prior study dated 02/09/2023, the extent of the anteriorabnormal wall motion has increased. Procedure Limited - 71923. Image enhancement Optison was used for left [...] HEMATOLOGY ORDERABLE S Performing Organization Address City/[facility]/ZIP Co de Phone Number [facility] [place] [address] * (ABNORMAL) Troponin (04/17/2023 6:43 AM EST) Troponin-T HS 23(H) <=14 ng/L [facility] Comment: This patient's troponin T [...] troponin value can be found in the [facility] Laboratory Test Catalog Troponin - [facility] Laboratory Test Catalog Reference: Fourth [place] Definition of Myocardial Infarction. Journal of the [place] [employer] 2018;72:6797-5324 Blood 04/17/2023 6:43 AM EST 04/17/2023 6:52 AM EST Narrative Resulting Agency Comment Spec In Lab Terrence Maloney MD CHEMISTRY ORDERABLES Performing Organization Address City/[facility]/ZIP Co de Phone Number [facility] [place] [address] * EKG 12 Lead (04/17/2023 3:41 AM EST) Ventricular rate 47 BPM MUSE SYSTEM Atrial Rate 47 BPM MUSE SYSTEM P-R Interval 186 ms MUSE SYSTEM QRS Duration 90 ms MUSE SYSTEM Q-T Interval 578 ms MUSE SYSTEM QTC Calculated (Bezet) 511 ms MUSE SYSTEM Calculated P [place] 24 degrees MUSE SYSTEM Calculated R [place] 23 degrees MUSE SYSTEM Calculated T [place] 27 degrees MUSE SYSTEM INTERPRETATION Sinus bradycardia with Premature atrial complexes Possible Left atrial enlargement Possible Lateral infarct , age undetermined Prolonged QT Abnormal ECG When compared with ECG of 01-APR-2023 12:28, Premature atrial complexes are now Present Vent. rate has decreased BY ??33 BPM Nonspecific T wave abnormality, improved in Anterior leads Confirmed by MD Angelo Danette ([id number]) on 04/20/2023 8:28:40 PM MUSE SYSTEM 04/17/2023 3:41 AM EST 04/20/2023 8:28 PM EST Terrence Maloney MD ECG ORDERABLES MUSE SYSTEM * Differential, Automated (04/17/2023 3:33 AM EST) Neutrophils % 54.4 % [facility] Neutr Abs (ANC) 4.02 1.70 - 6.10 x10(3)/[facility] LABORAT[facility] Lymphocytes % 32.0 % [facility] Lymphocytes Abs 2.4 0.9 - 3.2 x10(3)/[facility] Monocytes % 8.7 % [facility] Monocyte Abs 0.6 0.3 - 0.9 x10(3)/[facility] Eosinophils % 3.9 % [facility] Eosinophils Abs 0.3 0.0 - 0.4 x10(3)/[facility] Basophils % 0.7 % [facility] [...] 0.04 x10(3)/[facility] Blood 04/17/2023 3:33 AM EST 04/17/2023 3:42 AM EST Narrative Resulting Agency Comment Spec In Lab Terrence Maloney MD HEMATOLOGY ORDERABLE S [facility] [place] [address] * Hemogram (04/17/2023 3:33 AM EST) WBC 7.4 4.0 - 9.5 x10(3)/[facility] LABOR[facility] RBC 4.79 4.00 - 5.21 x10(6)/[facility] Hemoglobin 14.8 11.7 - 15.5 g/dL [facility] Hematocrit 44.3 35.7 - 45.8 % [facility] MCV 92.5 82.6 - 94.4 fL [facility] MCH 30.9 27.1 - 32.0 pg [facility] MCHC 33.4 31.7 - 35.0 g/dL [facility] Platelets 233 145 - 357 x10(3)/[facility] LABORATORY RDWSD 43.4 37.0 - 46.0 [facility] LABORATORY RDWCV 12.7 11.5 - 14.1 % [facility] MPV 11.0 7.6 - 12.9 [facility] LABORATORY nRBC % Auto 0.0 % [facility] nRBC Abs Auto 0.000 0.000 - 0.000 x10(3)/[facility] Blood 04/17/2023 3:33 AM EST 04/17/2023 3:42 AM EST Narrative Resulting Agency Comment Spec In Lab Terrence Maloney MD HEMATOLOGY ORDERABLE S Performing Organization Address [facility]/ZIP Co de Phone Number [facility] [place] [address] * Sedimentation rate (04/17/2023 3:33 AM EST) [...] MD HEMATOLOGY ORDERABLE S Performing Organization Address [facility] Co de Phone Number [facility] [place] [address] * CRP, acute inflammation (04/17/2023 3:33 AM EST) CRP <3.0 <=4.9 mg/L [facility] Blood 04/17/2023 3:33 AM EST 04/17/2023 3:42 AM EST Narrative Resulting Agency Comment Spec In Lab Terrence Maloney MD CHEMISTRY ORDERABLES Performing Organization Address [facility] Co de Phone Number [facility] [place] [address] * (ABNORMAL) Troponin (04/17/2023 3:33 AM EST) Troponin-T HS 24(H) <=14 ng/L [facility] Comment: This patient's troponin T [...] troponin value can be found in the [facility] Laboratory Test Catalog Troponin - [facility] Laboratory Test Catalog Reference: Fourth [place] Definition of Myocardial Infarction. Journal of the [place] [employer] 2018;72:7617-9698 Blood 04/17/2023 3:33 AM EST 04/17/2023 3:42 AM EST Narrative Resulting Agency Comment Spec In Lab Terrence Maloney MD CHEMISTRY ORDERABLES Performing Organization Address [facility] Co de Phone Number [facility] [place] [address] * (ABNORMAL) APTT (04/17/2023 3:33 AM EST) [...] MD HEMATOLOGY ORDERABLE S Performing Organization Address [facility] Co de Phone Number [facility] [place] [address] * (ABNORMAL) Prothrombin Time (04/17/2023 3:33 AM EST) PT 13.3(H) 9.4 - 12.5 sec [facility] INR 1.2 [facility] [...] MD HEMATOLOGY ORDERABLE S Performing Organization Address [facility] Co de Phone Number [facility] [place] [address] * Hepatic Function Panel (04/17/2023 3:33 AM EST) Total Protein 6.9 6.1 - 8.0 g/dL [facility] Albumin 4.2 3.2 - 5.2 g/dL [facility] AST Not Perf 0 - 30 [facility] Comment: Unable to quantitate [...] Maloney MD CHEMISTRY ORDERABLES Performing Organization Address [facility] Co de Phone Number [facility] [place] [address] * (ABNORMAL) pro-Brain Natriuretic Peptide (04/17/2023 3:33 AM EST) ProBNP 867(H) <=124 pg/mL [facility] Blood 04/17/2023 3:33 AM EST 04/17/2023 3:42 AM EST Narrative Resulting Agency Comment Spec In Lab Terrence Maloney MD CHEMISTRY ORDERABLES Performing Organization Address City/[facility]/ZIP Co de Phone Number [facility] [place] [address] * (ABNORMAL) TSH (04/17/2023 3:33 AM EST) Pathologist [facility] TSH 5.93(H) 0.27 - 4.20 mcIU/mL [facility] Comment: Reference Interval (mcIU/mL): Females: ??First Trimester: 0.23-3.88 ??Second Trimester: 0.22-3.90 ??Third Trimester: 0.44-4.66 Blood 04/17/2023 3:33 AM EST 04/17/2023 3:42 AM EST Narrative Resulting Agency Comment Spec In Lab Terrence Maloney MD CHEMISTRY ORDERABLES Performing Organization Address [facility]/ZIP Co de Phone Number [facility] [place] [address] * Phosphorus (04/17/2023 3:33 AM EST) Phosphorus 4.1 2.5 - 4.5 mg/dL [facility] Blood 04/17/2023 3:33 AM EST 04/17/2023 3:42 AM EST Narrative Resulting Agency Comment Spec In Lab Terrence Maloney MD CHEMISTRY ORDERABLES Performing Organization Address [facility] Co de Phone Number [facility] [place] [address] * Magnesium (04/17/2023 3:33 AM EST) Magnesium 0.99 0.69 - 1.07 mmol/L [facility] Blood 04/17/2023 3:33 AM EST 04/17/2023 3:42 AM EST Narrative Resulting Agency Comment Spec In Lab Terrence Maloney MD CHEMISTRY ORDERABLES [facility] [place] [address] * (ABNORMAL) Basic Metabolic Panel (non-fasting) (04/17/2023 [...] CHEMISTRY ORDERABLES [facility] [place] [address] * Film Library- Storage Only CT Chest [...] Rooney RN) 811 (Given - Provider: Charity Jakcson, [place]WIN)2100 (Given - Provider: Zoila Rooney RN) [...] Until Discontinued, Routine 829 (Given - Provider: Chlio Nickerson RN) 811 (Given - Provider: Charity [...] documented as of this encounter Care Teams Shirt Cleaner Relationship Specialty Start Date End Date Polo Pearce PA [address] [place] [address] PCP - General Internal Medicine 06/09/21 documented as of this encounter
--- OUTSIDE RECORDS SUMMARY | 2023-10-05 17:06 | XMS_ITS | Encounter Summary ---
[place] [address] Care Team Providers Care Cocoa Powder Mixer Operator Name Role Phone Polo Pearce Primary Care Provider [phone] Encounter Details Date Type Department Care Team (Late st Contact Info) Description 04/16/2023 External [place] [id number] Social History Tobacco Use Types Packs/Day Years Used Date Smoking Tobacco: Never Smokeless Tobacco: Never Alcohol Use Standard Drinks/Week Comments Never 0 (1 standard drink = 0.6 oz pur e alcohol) [facility] Utilities Answer Date Recorded In the [...] AM EDT Tech Visit Vascular [place] [phone] [place] [place] 10/08/2023 9:30 AM EDT Office Visit [place] [phone] MD [facility] [place] [address] 10/21/2023 10:30 AM EDT Appointment [place] [phone] Mary Reyes APRN [facility] [place] [address] 10/21/2023 11:30 AM EDT Appointment [place] [phone] Mary Reyes APRN [facility] [place] [address] 10/21/2023 12:30 PM EDT Appointment [place] [address] Mary Reyes [facility] [place] [address] 10/21/2023 1:30 PM EDT Appointment [place] [address] [place] [address] 10/21/2023 2:30 PM EDT Appointment [place] [address] [place] [address] 10/26/2023 4:00 PM EDT Office Visit Cardiology at [address] [phone] Jaspreet Kinsey MD [facility] [place] [address] 10/28/2023 9:00 AM EDT Office [place] [address] 10/29/2023 10:00 AM EDT Clinical [place] [address] 10/29/2023 10:15 AM EDT Procedure [place] [address] 11/01/2023 5:00 PM EDT Office Visit [place] [phone] Selene Browning, PhD [facility] [place] [address] 11/22/2023 4:40 PM EDT Office Visit Cardiology at [address] [phone] Porsha Mcdaniels MD [facility] [place] [address] 12/13/2023 10:00 AM EDT Clinical Support [place] [phone] Lucero Romero, [facility] [place] [place] [address] documented as of this encounter Procedures Procedure Name Priority Date/Time Associated Diagnosis Comments ECG SCAN Routine 04/16/2023 6:11 PM EST documented in this encounter Results * Scan Doc: ECG (04/16/2023 6:11 PM EST) Historical Provider MD [place] MGTalia SCAN EX T ORDR/RSLT documented in this encounter Visit Diagnoses Not on filedocumented in this encounter Care Teams Cocoa Powder Mixer Operator Relationship Specialty Start Date End Date Polo Pearce PA [address] [place] [address] PCP - General Internal Medicine 06/09/21 documented as of this encounter
--- OUTSIDE RECORDS SUMMARY | 2023-10-05 17:06 | XMS_ITS | Encounter Summary ---
Author Organization [facility] [address] Care Team Providers Care Speedboat Driver Name Role Phone Polo Pearce Primary Care Provider [phone] Encounter Details Date Type Department Care Team (Late st Contact Info) Description 04/16/2023 Telephone Cardiology at [address] [phone] Vaishnavi Pratt MD [facility] [place] [address] Social History Tobacco Use Types Packs/Day Years Used Date Smoking Tobacco: Never Smokeless Tobacco: Never Alcohol Use Standard Drinks/Week Comments Never 0 (1 standard drink = 0.6 oz pur e alcohol) [facility] Utilities Answer Date Recorded In the past 12 months has [employer], gas, oil, or water [employer] threatened to shut off services in [...] in a snf (including now)? No 02/10/2023 IPV Inpatient Questions [...] Date: 04/16/23 Referring Provider: Jaylon Patient Location: [facility] HPI: 53 y.o. 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 Preceding this, she has documented sustained narrow complex tachycardia on 06/13/2021 in the context of hospitalization at [facility] for NSTEMI. 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 So she was transferred to [facility] for EPS and ablation. She now presents to [facility] with chest discomfortthat started overnight. Upon chart review of Rn notes, patient reports that prior to the procedure she was having chest pain, worse with laying flat. She continued to have feelings of warmth and diaphoresis which improvedmildly immediately after procedure but resumed a few days after. Patient also had an admission to [facility] for chest pain on 02/11/23 and it [...] that was done by the on-call overnight laundry press operator, there is no significant change in biventricular [...] and Asa load. Will accept patient to [facility] for further workup. Although history sounds suspicious for pericarditis, recent ESR/CRP were normal. Suspect at [facility] patient will need to complete ischemic workup. Recommendations: Heparin gtt, Asa load, High intensity statin Transfer to [facility] Above recommendations were based on my discussion with OSH; I have not personally interviewed or examined this patient. Advised to call the transfer center back with any changes in the patient condition. Vaishnavi Pratt MD Diabetes Nurse documented in this encounter Plan of Treatment Upcoming Encounters Date Type Department Care Team (Late st Contact Info) Description 10/08/2023 8:30 AM EDT Tech Visit Vascular Lab at [place] [phone] Ch[address] Escob[place] 10/08/2023 9:30 AM EDT Office [place] [phone] MD [facility] [place] [address] 10/21/2023 10:30 AM EDT Appointment [place] [phone] Mary Reyes APRN [facility] [place] [address] 10/21/2023 11:30 AM EDT Appointment [place] [phone] Mary Reyes APRN [facility] [place] [address] 10/21/2023 12:30 PM EDT Appointment [place] [phone] [place] [address] 10/21/2023 1:30 PM EDT Appointment [place] [address] [place] [address] 10/21/2023 2:30 PM EDT Appointment [place] [address] [place] [address] 10/26/2023 4:00 PM EDT Office Visit Cardiology at [address] [phone] Jaspreet Kinsey MD [facility] [place] [address] 10/28/2023 9:00 AM EDT Office [place] [address] 10/29/2023 10:00 AM EDT Clinical Support [place] [address] 10/29/2023 10:15 AM EDT Procedure [place] [address] 11/01/2023 5:00 PM EDT Office [place] [phone] Selene Browning, PhD [facility] [place] [address] 11/22/2023 4:40 PM EDT Office Visit Cardiology at [address] [phone] Porsha Mcdaniels MD [facility] [place] [address] 12/13/2023 10:00 AM EDT Clinical [place] [phone] [facility] [place] [address] documented as of this encounter Visit Diagnoses Not on filedocumented in this encounter Care Teams Speedboat Driver Relationship Specialty Start Date End Date Polo Pearce PA [address] [place] [address] PCP - General Internal Medicine 06/09/21 documented as of this encounter
--- OUTSIDE RECORDS SUMMARY | 2023-10-05 17:06 | XMS_ITS | Encounter Summary ---
Author Organization [facility] [place] [address] Care Team Providers Care Manufacturing Controller Name Role Phone Polo Pearce Primary Care Provider [phone] Reason for Visit * Reason Onset Date Comments Post Procedure Call 04/08/2023 Encounter Details Date Type Department Care Team (Late st Contact Info) Description 04/08/2023 Notes Only Cardiology at [address] [phone] Mary Motta, RN Post Procedure Call Social History Tobacco Use Types Packs/Day Years Used Date Smoking Tobacco: Never Smokeless Tobacco: Never Alcohol Use Standard Drinks/Week Comments Never 0 (1 standard drink = 0.6 oz pur e alcohol) [facility] Utilities Answer Date Recorded In the past 12 months has e [employer], gas, oil, or water [employer] threatened to shut off services in your [...] with Dr. Tovar in 1-3 months at [facility] Catheter Insertion Area Care - You may [...] of any new medications initiated at [facility]. The patient should be aware and [...] his/her physician or the Cardiac Electrophysiology Service ([phone]). documented in this encounter Plan of Treatment Upcoming Encounters Date Type Department Care Team (Late st Contact Info) Description 10/08/2023 8:30 AM EDT Tech [place] [address] Ch[place] Escob[place] 10/08/2023 9:30 AM EDT Office Visit [place] [address] MD [facility] [place] [address] 10/21/2023 10:30 AM EDT Appointment [place] [address] Mary Reyes APRN [facility] [place] [address] 10/21/2023 11:30 AM EDT Appointment [place] [address] Mary Reyes APRN [facility] [place] [address] 10/21/2023 12:30 PM EDT Appointment [place] [address] [facility] [place] [address] 10/21/2023 1:30 PM EDT Appointment [place] [address] [facility] [place] [address] 10/21/2023 2:30 PM EDT Appointment [place] [address] [place] [address] 10/26/2023 4:00 PM EDT Office Visit Cardiology at [address] [phone] Jaspreet Kinsey MD [facility] [place] [address] 10/28/2023 9:00 AM EDT Office Visit [place] [address] 10/29/2023 10:00 AM EDT Clinical Support [place] [address] 10/29/2023 10:15 AM EDT Procedure visit [place] [address] 11/01/2023 5:00 PM EDT Office Visit [place] [phone] Selene Browning, PhD [facility] [place] [address] 11/22/2023 4:40 PM EDT Office Visit Cardiology at [address] [phone] Porsha Mcdaniels MD [facility] [place] [address] 12/13/2023 10:00 AM EDT Clinical Support [place] [phone] Lucero Romero, [facility] [place] [address] documented as of this encounter Visit Diagnoses Not on filedocumented in this encounter Care Teams Manufacturing Controller Relationship Specialty Start Date End Date Polo Pearce PA [address] [place] [address] PCP - General Internal Medicine 06/09/21 documented as of this encounter
--- OUTSIDE RECORDS SUMMARY | 2023-10-05 17:06 | XMS_ITS | Encounter Summary ---
[place] [address] Care Team Providers Care Evening Sitter Name Role Phone Polo Pearce Primary Care Provider [phone] Reason for Visit * Auth/Cert (Routine) Specialty Diagnoses / Procedures Referred By Jayant harris Referred To Contact Diagnoses NSTEMI (non-ST elevated myocardial infarction) NSTEMI Procedures ER Lloyd Pantoja MD [facility] [place] [address] [facility] Referral ID Status Reason Start Date Expiration Date Visits Re quested Visits Authorized [id number] 1 1 Encounter Details Date Type Department Care Team (Latest Contact Info) Description 04/17/2023 9:15 AM EST - 04/17/2023 11:59 PM EST Hospital Encounter [place] [address] Discharge Disposition: Home Social History Tobacco Use [...] slept in a fci (including now)? No 02/10/2023 DH IPV Inpatient [...] as needed. fluticasone propionate (FLONASE) 50 mcg/actuation [place], Suspension 1 spray by Each Nare route [...] AM EDT Tech [place] [address] Channing Escobedo [place] 10/08/2023 9:30 AM EDT Office [place] [address] MD [facility] [place] [address] 10/21/2023 10:30 AM EDT Appointment Nuclear Medicine at [place] [phone] Mary Reyes [place] [address] 10/21/2023 11:30 AM EDT Appointment Nuclear Medicine at [address] [place] [address] 10/21/2023 12:30 PM EDT Appointment [place] [address] Mary Reyes [place] [address] 10/21/2023 1:30 PM EDT Appointment [place] [address] Mary Reyes [place] [address] 10/21/2023 2:30 PM EDT Appointment [place] [address] Mary Reyes [place] [address] 10/26/2023 4:00 PM EDT Office Visit Cardiology at [address] [facility] [place] [address] Jaspreet Kinsey MD [facility] [place] [address] 10/28/2023 9:00 AM EDT Office Visit [place] [address] 10/29/2023 10:00 AM EDT Clinical [place] [address] 10/29/2023 10:15 AM EDT Procedure [place] [address] 11/01/2023 5:00 PM EDT Office [place] [phone] Selene Browning, PhD [facility] [place] [address] 11/22/2023 4:40 PM EDT Office Visit Cardiology at [address] [phone] Porsha Mcdaniels MD [facility] [place] [address] 12/13/2023 10:00 AM EDT Clinical [place] [phone] [facility] [place] [address] documented as of this encounter Procedures Procedure [...] mLs documented in this encounter Care Teams Evening Sitter Relationship Specialty Start Date End Date Polo Pearce PA [address] [place] [address] PCP - General Internal Medicine 06/09/21 documented as of this encounter
--- OUTSIDE RECORDS SUMMARY | 2023-10-05 17:06 | XMS_ITS | Encounter Summary ---
[place] [address] Care Team Providers Care Public Speaker Name Role Phone Polo Pearce Primary Care Provider [phone] Reason for Visit * Auth/Cert (Routine) Specialty [...] THER/DX INTERVENT ELECTROPHYSIOLOGY PROCEDURE Jed Tovar MD [facility] [place] [address] [facility] Referral ID Status Reason Start Date Expiration Date Visits Re quested Visits Authorized [id number] 1 1 Encounter Details Date Type Department Care Team (Late st Contact Info) Description 04/01/2023 7:30 AM EST - 04/01/2023 12:00 PM EST Surgery [place] [address] Jed Tovar MD [facility] [place] [address] ELECTROPHYSIOLOGY PROCEDURE Social History Tobacco Use Types [...] Indira Roque Patient Age: 53 y.o. Language: Cook Islander Race: White Ethnicity: Not nor Admit [...] Cardiac Electrophysiology - Weekends and holidays call [phone]; ask for evp and chief operating officer conveyor mechanic. Discharge Diagnoses (Hospital Problems) and Secondary Diagnoses [...] the context of hospitalization at [facility] for NSTEMI. A rapidly conducted narrow [...] days. Refills: 0 fluticasone propionate 50 mcg/actuation [place], Suspension Commonly known as: Flonase 1 spray [...] 3:00 PM Jaspreet Kinsey MD Cardiology at [place] Arrive at: [facility] [address] [phone] Discharge References/Attachments None documented in this encounter [...] as needed. fluticasone propionate (FLONASE) 50 mcg/actuation [place], Suspension 1 spray by Each Nare route [...] H&P Referring Provider: Jaspreet Kinsey MD [facility] [place] [address] Attending Provider: Jed Tovar MD Planned Procedure: EP study and SVT ablation Background and rationale for the procedure: Indira Roque is a 53 y.o. woman with paroxysmal atrial fibrillation, heart failure with preserved EF, and chronic angina with non-obstructive ASCVD but significant calcifications per coronary CTA. She has documented sustained narrow complex tachycardia on 06/13/2021 in the context of hospitalization at [facility] for NSTEMI. A rapidly conducted narrow [...] as needed. fluticasone propionate (FLONASE) 50 mcg/actuation [place], Suspension 1 spray by Each Nare route [...] in agreement. Dr. Jed Tovar, electrophysiology attending ([id number]) documented in this encounter Procedure Notes * [...] jittery Break coverage by Luiza Peña RN [phone]. PACU D/C criteria met at 1300 1345 Hand off to ERWIN Gomez SDP documented in this encounter Miscellaneous Notes * Brief Op Note - Jed Tovar MD - 04/01/2023 11:07 AM EST Brief Operative Note Patient Name: Indira Roque : [id number] MR#: [id number] Case Date: 04/01/2023 Surgeon: Surgeon(s) and Role: [...] AM EDT Tech Visit Vascular Lab at [place] [phone] Channing Escobedo [place] 10/08/2023 9:30 AM EDT Office [place] [address] MD [facility] [place] [address] 10/21/2023 10:30 AM EDT Appointment Nuclear Medicine at [place] [phone] Mary Reyes PROTOTYPE TECHNICIAN [facility] [place] [address] 10/21/2023 11:30 AM EDT Appointment [place] [phone] Mary Reyes PROTOTYPE TECHNICIAN [facility] [place] [address] 10/21/2023 12:30 PM EDT Appointment [place] [address] [place] [address] 10/21/2023 1:30 PM EDT Appointment [place] [address] [place] [address] 10/21/2023 2:30 PM EDT Appointment [place] [address] [place] [address] 10/26/2023 4:00 PM EDT Office Visit Cardiology at [address] [phone] Jaspreet Kinsey MD [facility] [place] [address] 10/28/2023 9:00 AM EDT Office [place] [address] 10/29/2023 10:00 AM EDT Clinical Support [place] [address] 10/29/2023 10:15 AM EDT Procedure [place] [address] 11/01/2023 5:00 PM EDT Office [place] [address] Selene Browning, PhD [facility] [place] [address] 11/22/2023 4:40 PM EDT Office Visit Cardiology at [address] [address] Porsha Mcdaniels MD [facility] [place] [address] 12/13/2023 10:00 AM EDT Clinical [place] [address] [facility] [place] [address] documented as of this encounter [...] (Bezet) 519 ms MUSE SYSTEM Calculated P [place] 44 degrees MUSE SYSTEM Calculated R [place] 41 degrees MUSE SYSTEM Calculated T [place] 36 degrees MUSE SYSTEM INTERPRETATION Normal sinus [...] not included. ELECTROPHYSIOLOGY STUDY AND SVT ABLATION [employer] Manager: Jed Tovar MD Fellow: Jaspreet Grimm MD Referring: Jaspreet Kinsey MD Patient History: Indira Roque is a 53 y.o. woman with one episode of paroxysmal atrial fibrillation, heart failure with preserved EF, and chronic angina with non-obstructive ASCVD but significant calcifications per coronary CTA. She has documented sustained narrow complex tachycardia on 06/13/2021 in the context of hospitalization at [facility] for NSTEMI. A rapidly conducted narrow [...] Intervals (ms) Interval Name Interval length (milliseconds) WA 260 QRS 97 QT 531 AH 159 HV 47 Refractory Periods Atrial ERP 700/300 AV Makayla Conduction AV Wenckebach 360 ms Retrograde [place]bach 470 ms Medication Summary (drug, amount, route) Isoproterenol at 2-4 mcg/kg/min Radiology Summary Total Fluoro time (min) 1.4 DAP (cGycm2) 53 Findings: 1. The baseline EKG revealed sinus rhythm with prolonged WA and long AH, but otherwise normal intervals [...] with Dr. Tovar in 1-3 ??months at [facility] 5. 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 Procedures performed: SVT ablation (cpt 03144); induce post IV drug (cpt 10604-40-23) I have read, edited and approve of [...] (Bezet) 522 ms MUSE SYSTEM Calculated P [place] 50 degrees MUSE SYSTEM Calculated R [place] 69 degrees MUSE SYSTEM Calculated T [place] 16 degrees MUSE SYSTEM INTERPRETATION Sinus bradycardia Lateral infarct , age undetermined Prolonged QT Abnormal ECG When compared with ECG of 22-MAR-2023 16:45, (unconfirmed) T wave inversion no longer evident in Anterior leads QT has lengthened I personally reviewed the tracing and edited the fellows interpretation Confirmed by fellow MD Nas, Max ([id number]) on 04/01/2023 3:35:42 PM Confirmed by MD NAILA, KAUSHIK ([id number]) on 04/02/2023 8:28:26 AM MUSE SYSTEM 04/01/2023 7:31 AM EST 04/02/2023 8:28 AM EST Jed Tovar MD ECG ORDERABLES MUSE SYSTEM * Differential, Automated (04/01/2023 7:20 AM EST) Pathologist [facility] Neutrophils % 53.2 % [facility] Neutr Abs (ANC) 3.51 1.70 - 6.10 x10(3)/[facility] Lymphocytes % 32.4 % [facility] Lymphocytes Abs 2.1 0.9 - 3.2 x10(3)/[facility] Monocytes % 8.7 % [facility] Monocyte Abs 0.6 0.3 - 0.9 x10(3)/[facility] Eosinophils % 4.6 % [facility] Eosinophils Abs 0.3 0.0 - 0.4 x10(3)/[facility] Basophils % 0.8 % [facility] Basophils Abs 0.0 0.0 - 0.1 x10(3)/[facility] Immature Gran % 0.30 % [facility] Comment: Immature granulocytes(IG's)percentage and absolute count will include metamyelocytes, myelocytes, and promyelocytes. Blood smears from CBCs yielding IG's will be scanned manually for concordance. If this scan disagrees with the automated IG or if promyelocytes are noted, a manual differential will be performed. Shonda Gran Abs 0.02 0.00 - 0.04 x10(3)/[facility] Blood 04/01/2023 7:20 AM EST 04/01/2023 7:33 AM EST Narrative Resulting Agency Comment Spec In Lab Jed Tovar MD HEMATOLOGY ORDERABLE S Performing Organization Address City/State/[facility] Co de Phone Number [facility] [place] [address] * (ABNORMAL) Hemogram (04/01/2023 7:20 AM EST) WBC 6.6 4.0 - 9.5 x10(3)/[facility] RBC 4.56 4.00 - 5.21 x10(6)/[facility] Hemoglobin 14.1 11.7 - 15.5 g/dL [facility] Hematocrit 43.1 35.7 - 45.8 % [facility] MCV 94.5(H) 82.6 - 94.4 fL [facility] MCH 30.9 27.1 - 32.0 pg [facility] MCHC 32.7 31.7 - 35.0 g/dL [facility] Platelets 229 145 - 357 x10(3)/[facility] RDWSD 44.7 37.0 - 46.0 fL [facility] RDWCV 12.7 11.5 - 14.1 % [facility] MPV 11.7 7.6 - 12.9 fL [facility] nRBC % Auto 0.0 % [facility] nRBC Abs Auto 0.000 0.000 - 0.000 x10(3)/[facility] Blood 04/01/2023 7:20 AM EST 04/01/2023 7:33 AM EST Narrative Resulting Agency Comment Spec In Lab Jed Tovar MD HEMATOLOGY ORDERABLE S [facility] [place] [address] * (ABNORMAL) BMP w/fasting Glucose (04/01/2023 7:20 [...] of Diabetes Mellitus, Position Statement from the [place] [employer]. ??Diabetes Care, Volume 33, Supplement [...] MD CHEMISTRY ORDERABLES [facility] [place] [address] documented in this encounter Visit Diagnoses Diagnosis [...] Routine documented in this encounter Care Teams Public Speaker Relationship Specialty Start Date End Date Polo Pearce PA [address] [place] [address] PCP - General Internal Medicine 06/09/21 documented as of this encounter
--- OUTSIDE RECORDS SUMMARY | 2023-10-05 17:06 | XMS_ITS | Encounter Summary ---
Author Organization [facility] [place] [address] Care Team Providers Care Salt Maker Name Role Phone Polo Pearce Primary Care Provider [phone] Encounter Details Date Type Department Care Team (Late st Contact Info) Description 04/16/2023 Telephone Cardiology at [address] [address] Vaishnavi Pratt MD [facility] [place] [address] Social History Tobacco Use Types Packs/Day Years Used Date Smoking Tobacco: Never Smokeless Tobacco: Never Alcohol Use Standard Drinks/Week Comments Never 0 (1 standard drink = 0.6 oz pur e alcohol) [facility] Utilities Answer Date Recorded In the past 12 months has [employer], gas, oil, or water [employer] threatened to shut off services in your [...] AM EDT Tech [place] [phone] Channing Escob[place] 10/08/2023 9:30 AM EDT Office [place] [address] MD [facility] [place] [address] 10/21/2023 10:30 AM EDT Appointment [place] [phone] Mary Reyes APRN [facility] [place] [address] 10/21/2023 11:30 AM EDT Appointment [place] [address] Mary Reyes [facility] [address] 10/21/2023 12:30 PM EDT Appointment [place] [address] Mary Reyes [facility] [place] [address] 10/21/2023 1:30 PM EDT Appointment [place] [address] [place] [address] 10/21/2023 2:30 PM EDT Appointment [place] [address] [place] [address] 10/26/2023 4:00 PM EDT Office Visit Cardiology at [address] [phone] Jaspreet Kinsey MD [facility] [place] [address] 10/28/2023 9:00 AM EDT Office [place] [address] 10/29/2023 10:00 AM EDT Clinical [place] [address] 10/29/2023 10:15 AM EDT Procedure [place] [address] 11/01/2023 5:00 PM EDT Office [place] [address] Selene Browning, PhD [facility] [place] [address] 11/22/2023 4:40 PM EDT Office Visit Cardiology at [address] [phone] Porsha Mcdaniels MD [facility] [place] [address] 12/13/2023 10:00 AM EDT Clinical [place] [address] [facility] [place] [address] documented as of this encounter Visit Diagnoses [...] documented as of this encounter Care Teams Salt Maker Relationship Specialty Start Date End Date Polo Pearce PA [address] [place] [address] PCP - General Internal Medicine 06/09/21 documented as of this encounter
--- OUTSIDE RECORDS SUMMARY | 2023-10-05 17:07 | XMS_ITS | Encounter Summary ---
Author Organization [facility] Address [facility] [place] [address] Care Team Providers Care Assistant Farm Operations Manager Name Role Phone Polo Pearce Primary Care Provider [phone] Encounter Details Date Type Department Care Team (Late st Contact Info) Description 02/16/2023 11:20 AM EST Office Visit Cardiology at [address] [address] Jed Tovar MD [facility] [place] [place] [address] PAF (paroxysmal atrial fibrillation); SVT (supraventricular tachycardia) Social History Tobacco Use Types Packs/Day Years Used Date Smoking Tobacco: Never Smokeless Tobacco: Never Alcohol Use Standard Drinks/Week Comments Never 0 (1 standard drink = 0.6 oz pur e alcohol) [facility] Utilities Answer Date Recorded In the past 12 months has [employer] electric, gas, oil, or water [employer] threatened to shut off services in your [...] Follow Up Patient ID Indira Roque [id number] Indira Roque is following up in EP [...] upper lobe. Started on eliquis 08/2022 TTE ([facility]): normal bi-v s/f. 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 I have personally reviewed all [...] permanent pacemaker insertion, and the risk of stroke/MA/deathshould left-sided access be required) were reviewed in [...] AM EDT Tech [place] [address] Channing Escobedo [place] 10/08/2023 9:30 AM EDT Office [place] [address] MD [facility] [place] [place] [address] 10/21/2023 10:30 AM EDT Appointment Nuclear Medicine at [place] [phone] Mary Reyes [facility] [place] [address] 10/21/2023 11:30 AM EDT Appointment Nuclear Medicine at [address] [place] [address] 10/21/2023 12:30 PM EDT Appointment [place] [address] Mary Reyes [facility] [place] [address] 10/21/2023 1:30 PM EDT Appointment [place] [address] Mary Reyes [facility] [place] [address] 10/21/2023 2:30 PM EDT Appointment [place] [address] Mary Reyes [facility] [place] [address] 10/26/2023 4:00 PM EDT Office Visit Cardiology at [address] [address] Jaspreet Kinsey MD [facility] [place] [address] 10/28/2023 9:00 AM EDT Office Visit [place] [address] 10/29/2023 10:00 AM EDT Clinical Support [place] [address] 10/29/2023 10:15 AM EDT Procedure visit [place] [address] 11/01/2023 5:00 PM EDT Office [place] [address] Selene Browning, PhD [facility] [place] [address] 11/22/2023 4:40 PM EDT Office Visit Cardiology at [address] [phone] Porsha Mcdaniels MD [facility] [place] [address] 12/13/2023 10:00 AM EDT Clinical [place] [address] [facility] [place] [address] Scheduled Orders Name Type Priority Associated Diagnoses [...] (Bezet) 511 ms MUSE SYSTEM Calculated P [place] 24 degrees MUSE SYSTEM Calculated R [place] 35 degrees MUSE SYSTEM Calculated T [place] 14 degrees MUSE SYSTEM INTERPRETATION Sinus bradycardia [...] dysrhythmias documented in this encounter Care Teams Assistant Farm Operations Manager Relationship Specialty Start Date End Date Polo Pearce PA [address] [place] [address] PCP - General Internal Medicine 06/09/21 documented as of this encounter
--- OUTSIDE RECORDS SUMMARY | 2023-10-05 17:07 | XMS_ITS | Encounter Summary ---
Author Organization [facility] [place] [address] Care Team Providers Care Statue Maker Name Role Phone Polo Pearce Primary Care Provider [phone] Encounter Details Date Type Department Care Team [...] AM EDT Tech Visit [place] [address] [place] Esc[place] 10/08/2023 9:30 AM EDT Office Visit [place] [address] MD [facility] [place] [address] 10/21/2023 10:30 AM EDT Appointment [place] [address] Mary Reyes [facility] [place] [address] 10/21/2023 11:30 AM EDT Appointment [place] [address] Mary Reyes [facility] [place] [address] 10/21/2023 12:30 PM EDT Appointment [place] [address] [place] [address] 10/21/2023 1:30 PM EDT Appointment [place] [address] [place] [address] 10/21/2023 2:30 PM EDT Appointment [place] [address] Mary Reyes [facility] [place] [address] 10/26/2023 4:00 PM EDT Office Visit Cardiology at [address] [address] Jaspreet Kinsey MD [facility] [place] [address] 10/28/2023 9:00 AM EDT Office [place] [address] 10/29/2023 10:00 AM EDT Clinical [place] [address] 10/29/2023 10:15 AM EDT Procedure [place] [address] 11/01/2023 5:00 PM EDT Office [place] [address] Selene Browning, PhD [facility] [place] [address] 11/22/2023 4:40 PM EDT Office Visit Cardiology at [address] [address] Porsha Mcdaniels MD [facility] [place] [address] 12/13/2023 10:00 AM EDT Clinical Support [place] [address] Lucero Romero, [facility] [place] [address] documented as of this encounter Visit Diagnoses Not on filedocumented in this encounter Care Teams Statue Maker Relationship Specialty Start Date End Date Polo Pearce PA [address] [place] [address] PCP - General Internal Medicine 06/09/21 documented as of this encounter
--- OUTSIDE RECORDS SUMMARY | 2023-10-05 17:07 | XMS_ITS | Encounter Summary ---
Author Organization [facility] Address [facility] [place] [address] Care Team Providers Care Prototype Special Build Name Role Phone Polo Pearce Primary Care Provider [phone] Encounter Details Date Type Department Care Team (Late st Contact Info) Description 02/16/2023 Telephone Cardiology at [address] [place] [address] Jaspreet Kinsey MD [facility] [place] [address] Social History Tobacco Use Types Packs/Day Years Used Date Smoking Tobacco: Never Smokeless Tobacco: Never Alcohol Use Standard Drinks/Week Comments Never 0 (1 standard drink = 0.6 oz pur e alcohol) [facility] Utilities Answer Date Recorded In the past 12 months has [employer], gas, oil, or water [employer] threatened to shut off services in your [...] in a fci (including now)? No 02/10/2023 Sex and Gender [...] her problems. Please call her back @ [phone] documented in this encounter Plan of Treatment Upcoming Encounters Date Type Department Care Team (Late st Contact Info) Description 10/08/2023 8:30 AM EDT Tech [place] [address] Channing Escobedo [place] 10/08/2023 9:30 AM EDT Office Visit Vascular Surgery at [place] [phone] MD [facility] [place] [address] 10/21/2023 10:30 AM EDT Appointment Nuclear Medicine at [place] [phone] [place] [address] 10/21/2023 11:30 AM EDT Appointment [place] [address] Mary Reyes [facility] [place] [address] 10/21/2023 12:30 PM EDT Appointment [place] [address] Mary Reyes [facility] [place] [address] 10/21/2023 1:30 PM EDT Appointment [place] [address] Mary Reyes [facility] [place] [address] 10/21/2023 2:30 PM EDT Appointment [place] [address] Mary Reyes APRN [facility] [place] [address] 10/26/2023 4:00 PM EDT Office Visit Cardiology at [address] [address] Jaspreet Kinsey MD [facility] [place] [address] 10/28/2023 9:00 AM EDT Office [place] [address] 10/29/2023 10:00 AM EDT Clinical [place] [address] 10/29/2023 10:15 AM EDT Procedure [place] [address] 11/01/2023 5:00 PM EDT Office Visit [place] [address] Selene Browning, PhD [facility] [place] [address] 11/22/2023 4:40 PM EDT Office Visit Cardiology at [address] [phone] Porsha Mcdaniels MD [facility] [place] [address] 12/13/2023 10:00 AM EDT Clinical Support [place] [address] [facility] [place] [place] [address] documented as of this encounter Visit Diagnoses Not on filedocumented in this encounter Care Teams Prototype Special Build Relationship Specialty Start Date End Date Polo Pearce PA [address] [place] [address] PCP - General Internal Medicine 06/09/21 documented as of this encounter
--- OUTSIDE RECORDS SUMMARY | 2023-10-05 17:07 | XMS_ITS | Encounter Summary ---
Author Organization [facility] Address [facility] [place] [address] Care Team Providers Care Property Custodian Name Role Phone Polo Pearce Primary Care Provider [phone] Encounter Details Date Type Department Care Team (Late st Contact Info) Description 10/20/2022 Telephone Cardiology at [address] [place] [address] Jaspreet Kinsey MD [facility] [place] [address] Social History Tobacco Use Types Packs/Day Years [...] to update office that she was at [facility] this morning as a follow [...] AM EDT Tech Visit Vascular Lab at [place] [phone] Channing Escob[place] 10/08/2023 9:30 AM EDT Office [place] [phone] MD [facility] [place] [address] 10/21/2023 10:30 AM EDT Appointment Nuclear Medicine at [place] [phone] Mary Reyes GUIDE VISITOR [place] [address] 10/21/2023 11:30 AM EDT Appointment [place] [phone] Mary Reyes GUIDE VISITOR [facility] [place] [address] 10/21/2023 12:30 PM EDT Appointment [place] [phone] [place] [address] 10/21/2023 1:30 PM EDT Appointment [place] [phone] [place] [address] 10/21/2023 2:30 PM EDT Appointment [place] [phone] [place] [address] 10/26/2023 4:00 PM EDT Office Visit Cardiology at [address] [phone] Jaspreet Kinsey MD [facility] [place] [address] 10/28/2023 9:00 AM EDT Office Visit [place] [address] 10/29/2023 10:00 AM EDT Clinical Support [place] [address] 10/29/2023 10:15 AM EDT Procedure visit [place] [address] 11/01/2023 5:00 PM EDT Office Visit [place] [address] Selene Browning, PhD [facility] [place] [address] 11/22/2023 4:40 PM EDT Office Visit Cardiology at [address] [phone] Porsha Mcdaniels MD [facility] [place] [address] 12/13/2023 10:00 AM EDT Clinical Support [place] [address] [facility] [place] [address] documented as of this encounter Visit Diagnoses Not on filedocumented in this encounter Care Teams Property Custodian Relationship Specialty Start Date End Date Pool Pearce PA Sb MOTT [address] [place] [address] PCP - General Internal Medicine 06/09/21 documented as of this encounter
--- OUTSIDE RECORDS SUMMARY | 2023-10-05 17:07 | XMS_ITS | Encounter Summary ---
Author Organization [facility] Address [facility] [place] [address] Care Team Providers Care Wet Wheeler Name Role Phone Polo Pearce Primary Care Provider [phone] Encounter Details Date Type Department Care Team (Latest Contact Info) Description 03/22/2023 Travel Social History Tobacco Use Types Packs/Day Years Used Date Smoking Tobacco: Never Smokeless Tobacco: Never Alcohol Use Standard Drinks/Week Comments Never 0 (1 standard drink = 0.6 oz pur e alcohol) [facility] Utilities Answer Date Recorded In [...] in a senior living (including now)? No 02/10/2023 Sex and Gender Information Value Date Recorded Sex Assigned at Not on file Gender Identity Not on file Sexual Orientation Not on file documented as of this encounter Plan of Treatment Upcoming Encounters Date Type Department Care Team (Late st Contact Info) Description 10/08/2023 8:30 AM EDT Tech Visit Vascular [place] [phone] [address] [place] 10/08/2023 9:30 AM EDT Office [place] [address] MD [facility] [place] [address] 10/21/2023 10:30 AM EDT Appointment Nuclear Medicine at [place] [phone] Mary Reyes PARTICLEBOARD FACTORY WORKER [facility] [place] [address] 10/21/2023 11:30 AM EDT Appointment [place] [phone] Mary Reyes PARTICLEBOARD FACTORY WORKER [facility] [place] [address] 10/21/2023 12:30 PM EDT Appointment [place] [address]-1000 Mary Reyes PARTICLEBOARD FACTORY WORKER [facility] [place] [address] 10/21/2023 1:30 PM EDT Appointment [place] [address] [place] [address] 10/21/2023 2:30 PM EDT Appointment [place] [address] [place] [address] 10/26/2023 4:00 PM EDT Office Visit Cardiology at [address] [phone] Jaspreet Kinsey MD [facility] [place] [address] 10/28/2023 9:00 AM EDT Office [place] [address] 10/29/2023 10:00 AM EDT Clinical [place] [address] 10/29/2023 10:15 AM EDT Procedure [place] [address] 11/01/2023 5:00 PM EDT Office [place] [address] Selene Browning, PhD [facility] [place] [address] 11/22/2023 4:40 PM EDT Office Visit Cardiology at [address] [address] Porsha Mcdaniels MD [facility] [place] [address] 12/13/2023 10:00 AM EDT Clinical [place] [address] [facility] [place] [place] [address] documented as of this encounter Visit Diagnoses Not on filedocumented in this encounter Care Teams Wet Wheeler Relationship Specialty Start Date End Date Polo Pearce PA [address] [place] [address] PCP - General Internal Medicine 06/09/21 documented as of this encounter
--- OUTSIDE RECORDS SUMMARY | 2023-10-05 17:07 | XMS_ITS | Encounter Summary ---
Author Organization [facility] [place] [address] Care Team Providers Care Nodulizer Name Role Phone Polo Pearce Primary Care Provider [phone] Encounter Details Date Type Department Care Team (Late st Contact Info) Description 02/08/2023 External Results [place] [phone] Social History Tobacco Use Types Packs/Day Years Used Date Smoking Tobacco: Never Smokeless Tobacco: Never Alcohol Use Standard Drinks/Week Comments Never 0 (1 standard drink = 0.6 oz pur e alcohol) [facility] Utilities Answer Date Recorded In [...] EDT Tech Visit [place] [address]-1000 [place] 10/08/2023 9:30 AM EDT Office Visit [place] [address] MD [facility] DR VASCULAR SURGERY [place], [place] [address] 10/21/2023 10:30 AM EDT Appointment Nuclear Medicine at [place] [phone] Mary Reyes APRN [facility] [place] [address] 10/21/2023 11:30 AM EDT Appointment [place] [phone] Mary Reyes APRN [facility] [place] [address] 10/21/2023 12:30 PM EDT Appointment [place] [address]-1000 Mary Reyes APRN [facility] [place] [address] 10/21/2023 1:30 PM EDT Appointment [place] [address]-1000 Mary Reyes, [facility] [place] [address] 10/21/2023 2:30 PM EDT Appointment [place] [address] Mary Reyes, [facility] [place] [address] 10/26/2023 4:00 PM EDT Office Visit Cardiology at [address] [phone] Jaspreet Kinsey MD [facility] [place] [address] 10/28/2023 9:00 AM EDT Office [place] [address] 10/29/2023 10:00 AM EDT Clinical [place] [address] 10/29/2023 10:15 AM EDT Procedure [place] [address] 11/01/2023 5:00 PM EDT Office Visit [place] [phone] Selene Browning, PhD [facility] [place] [address] 11/22/2023 4:40 PM EDT Office Visit Cardiology at [address] [address] Porsha Mcdaniels MD [facility] [place] [address] 12/13/2023 10:00 AM EDT Clinical [place] [address] [facility] [place] [address] documented as of this encounter Procedures Procedure Name Priority Date/Time Associated Diagnosis Comments ECG SCAN Routine 02/08/2023 3:27 PM EST documented in this encounter Results * Scan Doc: ECG (02/08/2023 3:27 PM EST) Historical Provider MD FLEMING MGR SCAN EX T ORDR/RSLT documented in this encounter Visit Diagnoses Not on filedocumented in this encounter Care Teams Nodulizer Relationship Specialty Start Date End Date Polo Pearce PA [address] [place] [address] PCP - General Internal Medicine 06/09/21 documented as of this encounter
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
--- OUTSIDE RECORDS SUMMARY | 2023-10-05 17:07 | XMS_ITS | Encounter Summary ---
Author Organization [facility] [place] [address] Care Team Providers Care Machine Stamper Name Role Phone Polo Pearce Primary Care Provider [phone] Reason for Referral * Consultation (Routine) - Closed Specialty Diagnoses / Procedures Referred By Jayant harris Referred To Contact Cardiology Diagnoses Non-ST elevation myocardial infarction (NSTEMI) Itz Bhardwaj MD [facility] [place] [address] Cardiac Rehab, [address] [place] [address] Referral ID Status Reason Start Date Expiration Date V isits Requested Visits Authorized [id number] Closed Consult, Test & Treat Non PCP 02/18/2023 08/17/2023 36 36 Encounter Details Date Type Department Care Team (Late st Contact Info) Description 02/18/2023 Orders [place] [phone] Jazmin Levine RN Non-ST elevation myocardial infarction [...] AM EDT Tech [place] [address] Channing Escobedo [place] 10/08/2023 9:30 AM EDT Office [place] [phone] MD [facility] [place] [address] 10/21/2023 10:30 AM EDT Appointment [place] [address] Mary Reyes [facility] [place] [address] 10/21/2023 11:30 AM EDT Appointment [place] [address] Mary Reyes [facility] [place] [address] 10/21/2023 12:30 PM EDT Appointment [place] [address] Mary Reyes [facility] [place] [address] 10/21/2023 1:30 PM EDT Appointment [place] [address] Mary Reyes [facility] [place] [address] 10/21/2023 2:30 PM EDT Appointment [place] [address] Mary Reyes [facility] [place] [address] 10/26/2023 4:00 PM EDT Office Visit Cardiology at [address] [phone] Jaspreet Kinsey MD [facility] [place] [address] 10/28/2023 9:00 AM EDT Office [place] [address] 10/29/2023 10:00 AM EDT Clinical [place] [address] 10/29/2023 10:15 AM EDT Procedure [place] [address] 11/01/2023 5:00 PM EDT Office Visit Gastroenterology at [address] Selene Browning, PhD [facility] [place] [address] 11/22/2023 4:40 PM EDT Office Visit Cardiology at [place] [phone] Porsha Mcdaniels MD [facility] [place] [address] 12/13/2023 10:00 AM EDT Clinical Support Gastroenterology at [place] [phone] Lucero Romero, [place] [place] [address] Scheduled Referrals Name Type Priority Associated Diagnoses Orde r Schedule Referral to Cardiac Rehab Outpatient Referral Routine Non-ST elevation myocardial infarction (NSTEMI) Ordered: 02/18/2023 documented as of this encounter Visit Diagnoses Diagnosis Non-ST elevation myocardial infarction (NSTEMI) Acute myocardial infarction, subendocardial infarction, episode of care unspecified documented in this encounter Care Teams Machine Stamper Relationship Specialty Start Date End Date Polo Pearce PA [address] [place] [address] PCP - General Internal Medicine 06/09/21 documented as of this encounter
--- OUTSIDE RECORDS SUMMARY | 2023-10-05 17:07 | XMS_ITS | Encounter Summary ---
[place] [address] Care Team Providers Care Library Clerk Name Role Phone Polo Pearce Primary Care Provider [phone] Reason for Visit * Auth/Cert (Routine) Specialty Diagnoses / Procedures Referred By Jayant t Referred To Contact Diagnoses NSTEMI (non-ST elevated myocardial infarction) NSTEMI NSTEMI (non-ST elevated myocardial infarction) [I21.4] [I21.4] NSTEMI (non-ST elevated myocardial infarction) Procedures EMERGENCY IPI Itz Bhardwaj MD [facility] [place] [address] [facility] Referral ID Status Reason Start Date Expiration Date Visits Re quested Visits Authorized [id number] 1 1 Encounter Details Date Type Department Care Team (Latest Contact Info) Description 02/08/2023 6:34 PM EST - 02/11/2023 3:45 PM EST Hospital Encounter Heart and Vascular Unit Level 4 [place] [id number] Bobby Edmonds MD [facility] [place] [address] Itz Bhardwaj MD [facility] [place] [address] Chest pain, unspecified type; NSTEMI [...] Loida Madrigal Patient Age: 52 y.o. Language: Slovenian Race: White Ethnicity: Not nor Admit date: 02/08/2023 Discharge date and time: 02/11/2023 Attending Physician: Itz Bhardwaj MD Discharge Physician: Itz Bhardwaj MD PCP: JOCY Franco ([phone]) ID: Loida Madrigal is a 52 y.o. female w/ PMH of NSTEMI (2019, no coronary disease identified),HTN, HLD, HFpEF, PE, AVNRT, and Afib on eliqu, admitted to [facility] on 02/08/2023 for a total of 3 [...] upper lobe. Started on eliquis 08/2022 TTE ([facility]): normal bi-v s/f. 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 with RUQ pain, weight gain, [...] At this time, she presented to the [facility] ED. In the [facility] ED, initial troponin was elevated [...] troponin and EKG changes, cardiology at [facility] was contacted for transfer. She was loaded [...] from prior EKGs. Her troponins at [facility] are flat 23 > 27. Additionally, she had a CT coronary in 09/2022 which showed non-obstructive coronary arteries. Her TTE was reassuring with EF 59% with concern for segmental wall motion abnormalities that were not present prior. Her chest pain is likely not related to ACS. She did continue to have chest pain throughoutadmission that responded to nitro. Her FIRE [employer]IEF amlodipine was discontinued due to hypotension and [...] that was done by the on-call overnight slip laster, there is no significant change in biventricular [...] days. Refills: 0 fluticasone propionate 50 mcg/actuation [place], Suspension Commonly known as: Flonase 1 spray [...] AM Jed Tovar MD Cardiology at [facility] Arrive at: [place] [phone] 03/04/2023 4:00 PM Jaspreet Kinsey MD Cardiology at [place] Arrive at: [facility] [address] [phone] Provider Contact Information: JOCY [address] / [facility] [address] Discharge References/Attachments: Discharge References/Attachments None Addendum: The [...] as needed. fluticasone propionate (FLONASE) 50 mcg/actuation [place], Suspension 1 spray by Each Nare route [...] Afib on eliquis who initially presented to [facility] with chest pain and shortness [...] that was done by the on-call overnight slip laster, there is no significant change in biventricular function. Assessment: Loida Madrigal is a 52 y.o. female with a PMHx NSTEMI (2019, no coronary disease identified), HTN, HLD, HFpEF, and Afib on [facility] who initially presented to [facility] with chest pain and shortness [...] Heidy Walker DO Internal Medicine PGY-1 Pager [phone], M1-S2 Service Associated attestation - Itz Bhardwaj [...] Afib on eliquis who initially presented to [facility] with chest pain and shortness [...] that was done by the on-call overnight slip laster, there is no significant change in biventricular function. Cardiac Catheterization: Pending. Assessment: Loida Madrigal is a 52 y.o. female with a PMHx NSTEMI (2019, no coronary disease identified), HTN, HLD, HFpEF, and Afib on eliquis who initially presented to [facility] with chest pain and shortness [...] Heidy Walker DO Internal Medicine PGY-1 Pager [phone], M1-S2 Service documented in this encounter H&P Notes * German Bianchi MD - 02/08/2023 10:05 PM EST Images from the original note were not included. Cardiology Admission History and Physical Patient Name: Loida Madrigal Service: M1-S1 Responsible Attending: Bobby Edmonds MD PCP: JOCY Franco PCP phone #: [phone] ID/Chief Complaint: Loida Madrigal is a 52 y.o. female with a PMHx NSTEMI (2019, no coronary disease identified), HTN, HLD, HFpEF, PE, AVNRT, and Afib on eliquis who initially presented to [facility] with chest pain and shortness of breath, now transferred to [facility] for management of presumed NSTEMI. History of [...] At this time, she presented to the [facility] ED. In the [facility] ED, initial troponin was elevated [...] troponin and EKG changes, cardiology at [facility] was contacted for transfer. She was loaded [...] upper lobe. Started on eliquis 08/2022 TTE ([facility]): normal bi-v s/f. 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 with RUQ pain, weight gain, [...] as needed. fluticasone propionate (FLONASE) 50 mcg/actuation [place], Suspension 1 spray by Each Nare route [...] Mother: history of stroke. Father: history of [place] in father. Siblings: none. Social History: Tobacco: [...] Afib on eliquis who initially presented to [facility] with chest pain and shortness of breath, now transferred to [facility] for management of presumed NSTEMI. Mrs. Madrigal [...] Bianchi MD, PGY-2 Cardiology M1-S2, Team Pager [phone] 02/08/2023 Associated attestation - Itz Bhardwaj MD [...] fairly recent. She has ruled out for [place] with low-level not increasing troponins and her [...] in an outpatient cardiac rehabilitation program at [facility] was discussed. Patient agrees to [...] COVID test: Lab Results Component Value Date [id number] Not Detected 06/13/2021 Present on Admission: NSTEMI (non-ST elevated myocardial infarction) Hospitalizations Within the Past 30 Days: no previous admission in last 30 days Patient receiving hospital care under Inpatient status. Admission order reviewed. Health/Prescription Coverage: Primary Insurance: [employer] [facility] Payor: [employer] [facility] [place] / Plan: [facility] [place] EXCHANGE / Product Type: *No Product type* / Secondary Insurance: N/A ; Prescription Coverage: Yes Preferred Pharmacy: [id number] - [place], [place] - [address] [facility] [address] [address] [facility] - [place], [place] - [address] [facility] [address] Advance Care Planning: Attempt Cardiopulmonary Resuscitation - Inpatient <no information> -Advanced Directive: No, need to discuss (Referral sent to [facility] - Major Gifts Director) Current Functional Ability: Independent Functional Status Prior to Admission: Independent Home Environment: Others in the home: spouse (Lives w/ (Boby)). Current Living Arrangements: home/apartment/condo. Accessibility Concerns:1.5 story home (steps w/ railings). 5-6 [place]TER[place] home. No concerns. Current DME: respiratory supplies ([employer] ([facility])) [address] [facility] [address] Social & Family Supports: All names listed [...] olivier Tasha, when medically ready. Registered Nurse Carroter / Broadcast Systems Engineer will continue to follow patient???s progress and [...] AM EDT Tech [place] [phone] [place] 10/08/2023 9:30 AM EDT Office [place] [address] MD [facility] [place] [address] 10/21/2023 10:30 AM EDT Appointment Nuclear Medicine at [place] [phone] Mary Reyes [facility] [place] [address] 10/21/2023 11:30 AM EDT Appointment [place] [phone] Mary Reyes [employer] [facility] [place] [address] 10/21/2023 12:30 PM EDT Appointment [place] [phone] Mary Reyes [employer] [facility] [place] [address] 10/21/2023 1:30 PM EDT Appointment Nuclear Medicine at [place] [phone] Mary [place] [address] 10/21/2023 2:30 PM EDT Appointment [place] [address] [place] [address] 10/26/2023 4:00 PM EDT Office Visit Cardiology at [address] [phone] Jaspreet Kinsey MD [facility] [place] [address] 10/28/2023 9:00 AM EDT Office Visit [place] [address] 10/29/2023 10:00 AM EDT Clinical Support [place] [address] 10/29/2023 10:15 AM EDT Procedure visit [place] [address] 11/01/2023 5:00 PM EDT Office [place] [address] Selene Browning, PhD [facility] [place] [address] 11/22/2023 4:40 PM EDT Office Visit Cardiology at [address] [phone] Porsha Mcdaniels MD [facility] [place] [address] 12/13/2023 10:00 AM EDT Clinical Support Gastroenterology at [facility] [place] [phone] [facility] [place] [place] [address] documented as of this encounter Procedures Procedure [...] Urine culture (02/11/2023 9:30 AM EST) Pathologist [facility] Urine Culture 10,000-49,000 cfu/ml mixed mucosal elmer Note: Culture shows multiple bacterial species suggesting mucosal contamination. (A) [facility] Urine 02/11/2023 9:30 AM EST 02/11/2023 1:19 PM EST Narrative Resulting Agency Comment Spec In Lab Heidy Walker MD MICROBIOLOGY - GENER AL ORDERABLES Performing Organization Address [facility]/ZIP Co de Phone Number [facility] [place] [address] * (ABNORMAL) Urinalysis Microscopic Exam (02/11/2023 9:30 AM EST) Pathologist [facility] RBC UA 1 0 - 4 /HPF [facility] WBC UA 29(H) 0 - 5 /HPF [facility] Bacteria UA Few(A) None /HPF [facility] Squam Epith UA [...] Walker MD URINE ORDERABLES Performing Organization Address City/[facility]/ZIP Co de Phone Number [facility] [place] [address] * (ABNORMAL) Urinalysis with reflex Culture (02/11/2023 9:30 AM EST) Pathologist [facility] Glucose UA 500(Critica l) Negative mg/dL [facility] [...] Cloudy(A) Clear [facility] Spec [place] UA 1.029 1.005 - 1.030 [facility] Color UA Dark Yellow Yellow [facility] Culture Reflexed Yes [facility] Urine Urine / Unknown 02/11/2023 9 :30 AM EST 02/11/2023 10:32 AM EST Narrative Resulting Agency Comment Spec In Lab Heidy Walker MD URINE ORDERABLES [facility] [place] [address] * EKG 12 Lead (02/11/2023 6:07 AM EST) Ventricular rate 47 BPM MUSE SYSTEM Atrial Rate 47 BPM MUSE SYSTEM P-R Interval 200 ms MUSE SYSTEM QRS Duration 88 ms MUSE SYSTEM Q-T Interval 522 ms MUSE SYSTEM QTC Calculated (Bezet) 461 ms MUSE SYSTEM Calculated P [place] 36 degrees MUSE SYSTEM Calculated R [place] 48 degrees MUSE SYSTEM Calculated T [place] 12 degrees MUSE SYSTEM INTERPRETATION Sinus bradycardia Possible Left atrial enlargement Possible Lateral infarct (cited on or before 08-FEB-2023) Long QT interval Abnormal ECG When compared with ECG of 10-FEB-2023 11:44, No significant change was found I personally reviewed the tracing and edited the fellows interpretation Confirmed by fellow MD Rosalinda, Alejandro ([id number]) on 02/11/2023 2:15:46 PM Confirmed by Kai Haider ([id number]) on 02/11/2023 4:16:20 PM MUSE SYSTEM 02/11/2023 6:07 AM EST 02/11/2023 4:16 PM EST Itz Bhardwaj MD ECG ORDERABLES MUSE SYSTEM * Differential, Automated (02/11/2023 3:41 AM EST) Neutrophils % 53.9 % [facility] Neutr Abs (ANC) 3.50 1.70 - 6.10 x10(3)/[facility] Lymphocytes % 31.5 % [facility] Lymphocytes Abs 2.0 0.9 - 3.2 x10(3)/[facility] Monocytes % 8.9 % [facility] Monocyte Abs 0.6 0.3 - 0.9 x10(3)/[facility] Eosinophils % 4.9 % [facility] Eosinophils Abs 0.3 0.0 - 0.4 x10(3)/[facility] Basophils % 0.6 % [facility] Basophils Abs 0.0 0.0 - 0.1 x10(3)/[facility] Immature Gran % 0.20 % [facility] Comment: Immature granulocytes(IG's)percentage and absolute count will include metamyelocytes, myelocytes, and promyelocytes. Blood smears from CBCs yielding IG's will be scanned manually for concordance. If this scan disagrees with the automated IG or if promyelocytes are noted, a manual differential will be performed. Shonda Gran Abs 0.01 0.00 - 0.04 x10(3)/[facility] Blood 02/11/2023 3:41 AM EST 02/11/2023 4:01 AM EST Narrative Resulting Agency Comment Spec In Lab German Bianchi MD HEMATOLOGY ORDERABL ES [facility] [place] [address] * Hemogram (02/11/2023 3:41 AM EST) WBC 6.5 4.0 - 9.5 x10(3)/[facility] RBC 4.55 4.00 - 5.21 x10(6)/[facility] Hemoglobin 14.4 11.7 - 15.5 g/dL [facility] Hematocrit 42.9 35.7 - 45.8 % [facility] MCV 94.3 82.6 - 94.4 fL [facility] MCH 31.6 27.1 - 32.0 pg [facility] MCHC 33.6 31.7 - 35.0 g/dL [facility] Platelets 240 145 - 357 x10(3)/[facility] RDWSD 42.9 37.0 - 46.0 [facility] RDWCV 12.4 11.5 - 14.1 % [facility] MPV 11.0 7.6 - 12.9 [facility] nRBC % Auto 0.0 % [facility] nRBC Abs Auto 0.000 0.000 - 0.000 x10(3)/[facility] Blood 02/11/2023 3:41 AM EST 02/11/2023 4:01 AM EST Narrative Resulting Agency Comment Spec In Lab German Bianchi MD HEMATOLOGY ORDERABL ES Performing Organization Address City/[facility]/ZIP Co de Phone Number [facility] [place] [address] * Magnesium (02/11/2023 3:41 AM EST) Magnesium 0.91 0.69 - 1.07 mmol/L [facility] Blood 02/11/2023 3:41 AM EST 02/11/2023 4:01 AM EST Narrative Resulting Agency Comment Spec In Lab Bobby Edmonds MD CHEMISTRY ORDERABLES Performing Organization Address [facility] Co de Phone Number [facility] [place] [address] * (ABNORMAL) Basic Metabolic Panel (non-fasting) (02/11/2023 [...] MD CHEMISTRY ORDERABLES [facility] [place] [id number] * Differential, Automated (02/10/2023 3:46 AM EST) Neutrophils % 59.8 % [facility] Neutr Abs (ANC) 4.01 1.70 - 6.10 x10(3)/[facility] Lymphocytes % 27.5 % [facility] Lymphocytes Abs 1.8 0.9 - 3.2 x10(3)/[facility] Monocytes % 8.5 % [facility] Monocyte Abs 0.6 0.3 - 0.9 x10(3)/[facility] Eosinophils % 3.7 % [facility] Eosinophils Abs 0.2 0.0 - 0.4 x10(3)/[facility] Basophils % 0.4 % [facility] Basophils Abs 0.0 0.0 - 0.1 x10(3)/[facility] Immature Gran % 0.10 % [facility] Comment: Immature granulocytes(IG's)percentage and absolute count will include metamyelocytes, myelocytes, and promyelocytes. Blood smears from CBCs yielding IG's will be scanned manually for concordance. If this scan disagrees with the automated IG or if promyelocytes are noted, a manual differential will be performed. Shonda Gran Abs 0.01 0.00 - 0.04 x10(3)/[facility] Blood 02/10/2023 3:46 AM EST 02/10/2023 4:12 AM EST Narrative Resulting Agency Comment Spec In Lab German Bianchi MD HEMATOLOGY ORDERABL ES [facility] [place] [address] * Hemogram (02/10/2023 3:46 AM EST) WBC 6.7 4.0 - 9.5 x10(3)/[facility] RBC 4.60 4.00 - 5.21 x10(6)/[facility] Hemoglobin 14.4 11.7 - 15.5 g/dL [facility] Hematocrit 42.2 35.7 - 45.8 % [facility] MCV 91.7 82.6 - 94.4 [facility] MCH 31.3 27.1 - 32.0 pg [facility] MCHC 34.1 31.7 - 35.0 g/dL [facility] Platelets 246 145 - 357 x10(3)/[facility] RDWSD 42.3 37.0 - 46.0 [facility] RDWCV 12.6 11.5 - 14.1 % [facility] MPV 11.1 7.6 - 12.9 [facility] nRBC % Auto 0.0 % [facility] nRBC Abs Auto 0.000 0.000 - 0.000 x10(3)/[facility] Blood 02/10/2023 3:46 AM EST 02/10/2023 4:12 AM EST Narrative Resulting Agency Comment Spec In Lab German Bianchi MD HEMATOLOGY ORDERABL ES Performing Organization Address City/[facility]/ZIP Co de Phone Number [facility] [place] [address] * Magnesium (02/10/2023 3:46 AM EST) Pathologist [facility] Magnesium 1.01 0.69 - 1.07 mmol/L [facility] Blood 02/10/2023 3:46 AM EST 02/10/2023 4:12 AM EST Narrative Resulting Agency Comment Spec In Lab Bobby Edmonds MD CHEMISTRY ORDERABLES Performing Organization Address [facility] Co de Phone Number [facility] [place] [address] * (ABNORMAL) Basic Metabolic Panel (non-fasting) (02/10/2023 3:46 AM EST) [facility] Glucose Lvl 103 65 - [...] Edmonds MD CHEMISTRY ORDERABLES Performing Organization Address [facility] Co de Phone Number [facility] [place] [address] * Potassium (02/09/2023 2:46 PM EST) [facility] Potassium 4.0 3.5 - 5.0 mmol/L [facility] [...] MD CHEMISTRY ORDERABL ES Performing Organization Address [facility] Co de Phone Number [facility] [place] [address] * ECHO LMTD W CONTRAST W LMTD SPEC DOPP COLOR DOPP (02/09/2023 9:01 AM EST) Anatomical Region Laterality Modality Cardiac Other 02/09/2023 8:19 AM EST Narrative 02/09/2023 9:39 AM EST [address] [place] [address] ? Echocardiogram Report Name: LOIDA MADRIGAL ? Study Date: 02/09/2023 08:19 AMBP: 98/57 mmHg ? Patient Location: [address] : 1970 ? Height: 163 cm ? Account: [id number] Age: 52 yrs ? Weight: 99 kg Gender: Female ?BSA: 2.0 m2 Ordering Physician: BOBBY EDMONDS Referring Physician: AJ HARTMAN Performed By: Aaron Herr RDCS Reason For Study: NSTEMI (non-ST elevated myocardial infarction) Interpreting Fellow: Ciro Lovell. Exam Location: [facility]. Interpretation Summary Left ventricular systolic function is [...] that was done by the on-call overnight slip laster, there is no significant change in biventricular function. Procedure Limited - 65[address]. Image enhancement Definity was used for left [...] Procedure Manish Mandel MD - 02/09/2023 1 [place] [address] Echocardiogram Report Name: LOIDA MADRIGAL Study Date: 308:19 AMBP: 98/57 mmHg Patient Location: [address] : 1970 Height: 163 cm Account: [id number] Age: 52 yrs Weight: 99 kg Gender: Female BSA: 2.0 m2 Ordering Physician: BOBBY EDMONDS Referring Physician: AJ HARTMAN Performed By: Aaron Herr RDCS Reason For Study: NSTEMI (non-ST elevated myocardial infarction) Interpreting Fellow: Ciro Lovell. Exam Location: [facility]. Interpretation Summary Left ventricular systolic function is [...] change in biventricular function. Procedure Limited - 26346. Image enhancement Definity was used for leftventricular [...] * (ABNORMAL) Troponin (02/09/2023 8:01 AM EST) [facility] Troponin-T HS 27(H) <=14 ng/L [facility] Comment: This [...] value can be found in the [facility] Laboratory Test Catalog Troponin - [facility] Test Catalog Reference: Fourth [place] Definition of Myocardial Infarction. Journal of the [place] [employer] 2018;72:3580-7243 Blood 02/09/2023 8:01 AM EST 02/09/2023 8:06 AM EST Narrative Resulting Agency Comment Spec In Lab Itz Bhardwaj MD CHEMISTRY ORDERABL ES Performing Organization Address [facility] Co de Phone Number [facility] [place] [address] * CRP, acute inflammation (02/09/2023 3:55 AM EST) CRP <3.0 <=4.9 mg/L [facility] Blood Venous Draw / Unknown 02/09/2023 3:55 AM EST 02/09/2023 4:07 AM EST Narrative Resulting Agency Comment Spec In Lab Grady Metcalf MD CHEMISTRY ORDERABLES Performing Organization Address [facility] de Phone Number [facility] [place] [address] * Sedimentation rate (02/09/2023 3:55 AM EST) [...] MD HEMATOLOGY ORDERABLE S Performing Organization Address [facility] Co de Phone Number [facility] [place] [address] * Differential, Automated (02/09/2023 3:55 AM EST) Neutrophils % 54.3 % [facility] Neutr Abs (ANC) 3.66 1.70 - 6.10 x10(3)/[facility] Lymphocytes % 32.4 % [facility] Lymphocytes Abs 2.2 0.9 - 3.2 x10(3)/[facility] Monocytes % 8.3 % [facility] Monocyte Abs 0.6 0.3 - 0.9 x10(3)/[facility] Eosinophils % 4.1 % [facility] Eosinophils Abs 0.3 0.0 - 0.4 x10(3)/[facility] Basophils % 0.6 % [facility] Basophils Abs 0.0 0.0 - 0.1 x10(3)/[facility] Immature Gran % 0.30 % [facility] [...] 0.00 - 0.04 x10(3)/[facility] Blood 02/09/2023 3:55 AM EST 02/09/2023 4:06 AM EST Narrative Resulting Agency Comment Spec In Lab German Bianchi MD HEMATOLOGY ORDERABL ES Performing Organization Address City/State/[facility] Co de Phone Number [facility] [place] [address] * Hemogram (02/09/2023 3:55 AM EST) WBC 6.8 4.0 - 9.5 x10(3)/[facility] RBC 4.53 4.00 - 5.21 x10(6)/[facility] Hemoglobin 14.2 11.7 - 15.5 g/dL [facility] Hematocrit 41.2 35.7 - 45.8 % [facility] MCV 90.9 82.6 - 94.4 fL [facility] MCH 31.3 27.1 - 32.0 pg [facility] MCHC 34.5 31.7 - 35.0 g/dL [facility] Platelets 237 145 - 357 x10(3)/[facility] RDWSD 41.1 37.0 - 46.0 fL [facility] RDWCV 12.4 11.5 - 14.1 % [facility] MPV 11.2 7.6 - 12.9 fL [facility] nRBC % Auto 0.0 % [facility] nRBC Abs Auto 0.000 0.000 - 0.000 x10(3)/[facility] Blood 02/09/2023 3:55 AM EST 02/09/2023 4:06 AM EST Narrative Resulting Agency Comment Spec In Lab German Bianchi MD HEMATOLOGY ORDERABL ES [facility] [place] [id number] * (ABNORMAL) Heparin (unfractionated) Level (02/09/2023 3:55 [...] MD HEMATOLOGY ORDERABLE S Performing Organization Address City/[facility] Co de Phone Number [facility] [place] [address] * Magnesium (02/09/2023 3:55 AM EST) Magnesium 1.04 0.69 - 1.07 mmol/L [facility] Blood 02/09/2023 3:55 AM EST 02/09/2023 4:06 AM EST Narrative Resulting Agency Comment Spec In Lab Bobby Edmonds MD CHEMISTRY ORDERABLES Performing Organization Address City/[facility] Co de Phone Number [facility] [place] [address] * (ABNORMAL) Basic Metabolic Panel (non-fasting) (02/09/2023 [...] MD CHEMISTRY ORDERABLES [facility] [place] [address] * Differential, Automated (02/08/2023 10:08 PM EST) Neutrophils % 55.7 % [facility] Neutr Abs (ANC) 4.29 1.70 - 6.10 x10(3)/[facility] Lymphocytes % 33.0 % [facility] Lymphocytes Abs 2.5 0.9 - 3.2 x10(3)/[facility] Monocytes % 7.7 % [facility] Monocyte Abs 0.6 0.3 - 0.9 x10(3)/[facility] Eosinophils % 2.9 % [facility] Eosinophils Abs 0.2 0.0 - 0.4 x10(3)/[facility] Basophils % 0.6 % [facility] Basophils Abs 0.0 0.0 - 0.1 x10(3)/[facility] Immature Gran % 0.10 % [facility] Comment: Immature granulocytes(IG's)percentage and absolute count will include metamyelocytes, myelocytes, and promyelocytes. Blood smears from CBCs yielding IG's will be scanned manually for concordance. If this scan disagrees with the automated IG or if promyelocytes are noted, a manual differential will be performed. Shonda Gran Abs 0.01 0.00 - 0.04 x10(3)/[facility] Blood 02/08/2023 10:0 8 PM EST 02/08/2023 10:18 PM EST Narrative Resulting Agency Comment Spec In Lab German Bianchi MD HEMATOLOGY ORDERABL ES Performing Organization Address City/State/[facility] Co de Phone Number [facility] [place] [address] * (ABNORMAL) Hemogram (02/08/2023 10:08 PM EST) WBC 7.7 4.0 - 9.5 x10(3)/[facility] RBC 4.93 4.00 - 5.21 x10(6)/[facility] Hemoglobin 15.6(H) 11.7 - 15.5 g/dL [facility] Hematocrit 46.9(H) 35.7 - 45.8 % [facility] MCV 95.1(H) 82.6 - 94.4 fL [facility] MCH 31.6 27.1 - 32.0 pg [facility] MCHC 33.3 31.7 - 35.0 g/dL [facility] Platelets 201 145 - 357 x10(3)/[facility] RDWSD 45.0 37.0 - 46.0 fL [facility] RDWCV 12.8 11.5 - 14.1 % [facility] MPV 11.3 7.6 - 12.9 fL [facility] nRBC % Auto 0.0 % [facility] nRBC Abs Auto 0.000 0.000 - 0.000 x10(3)/mcL [facility] Blood 02/08/2023 10:0 8 PM EST 02/08/2023 10:18 PM EST Narrative Resulting Agency Comment Spec In Lab German Bianchi MD HEMATOLOGY ORDERABL ES [facility] [place] [address] * (ABNORMAL) Troponin (02/08/2023 10:08 PM EST) Troponin-T HS 23(H) <=14 ng/L [facility] Comment: This [...] value can be found in the [facility] Laboratory Test Catalog Troponin - [facility] Laboratory Test Catalog Reference: Fourth [place] Definition of Myocardial Infarction. Journal of the [place] [employer] 2018;72:7307-9188 Blood 02/08/2023 10:0 8 PM EST 02/08/2023 10:18 PM EST Narrative Resulting Agency Comment Spec In Lab Bobby Edmonds MD CHEMISTRY ORDERABLES Performing Organization Address City/[facility]/ZIP Co de Phone Number [facility] [place] [address] * (ABNORMAL) Magnesium (02/08/2023 10:08 PM EST) Magnesium 1.15(H) 0.69 - 1.07 mmol/L [facility] Blood 02/08/2023 10:0 8 PM EST 02/08/2023 10:18 PM EST Narrative Resulting Agency Comment Spec In Lab Bobby Edmonds MD CHEMISTRY ORDERABLES Performing Organization Address City/[facility] Co de Phone Number [facility] [place] [address] * (ABNORMAL) Basic Metabolic Panel (non-fasting) (02/08/2023 [...] Edmonds MD CHEMISTRY ORDERABLES Performing Organization Address [facility] Co de Phone Number [facility] [place] [place] [address] * (ABNORMAL) pro-Brain Natriuretic Peptide (02/08/2023 10:08 PM EST) ProBNP 850(H) <=124 pg/mL [facility] Blood 02/08/2023 10:0 8 PM EST 02/08/2023 10:18 PM EST Narrative Resulting Agency Comment Spec In Lab Bobby Edmonds MD CHEMISTRY ORDERABLES Performing Organization Address City/[facility] Co de Phone Number [facility] [place] [address] * TSH (02/08/2023 10:08 PM EST) TSH 4.00 0.27 - 4.20 mcIU/mL [facility] Comment: Reference Interval (mcIU/mL): Females: ??First Trimester: 0.23-3.88 ??Second Trimester: 0.22-3.90 ??Third Trimester: 0.44-4.66 Blood 02/08/2023 10:0 8 PM EST 02/08/2023 10:18 PM EST Narrative Resulting Agency Comment Spec In Lab Bobby Edmonds MD CHEMISTRY ORDERABLES Performing Organization Address City/[facility]/ZIP Co de Phone Number [facility] [place] [address] * EKG 12 Lead (02/08/2023 6:38 PM EST) Ventricular rate 56 BPM MUSE SYSTEM Atrial Rate 56 BPM MUSE SYSTEM P-R Interval 182 ms MUSE SYSTEM QRS Duration 88 ms MUSE SYSTEM Q-T Interval 498 ms MUSE SYSTEM QTC Calculated (Bezet) 480 ms MUSE SYSTEM Calculated P [place] 27 degrees MUSE SYSTEM Calculated R [place] 40 degrees MUSE SYSTEM Calculated T [place] 15 degrees MUSE SYSTEM INTERPRETATION Sinus bradycardia [...] EST Unknown ECG ORDERABLES Performing Organization Address [facility] Co de Phone Number MUSE [...] Zoila Bhatt RN) 160 (Given - Provider: Oapl Traore RN)2110 (Given - Provider: Zoila Bhatt [...] Heparin UFH Level - Per Protocol, Routine 9029 (Hold - Provider: Zoila Bhatt RN - Reason: See comment - Comment: UFH [phone])[phone] (Restarted - Provider: Zoila Bhatt RN)1124 (Stopped [...] Routine documented in this encounter Care Teams Library Clerk Relationship Specialty Start Date End Date Polo Pearce PA [address] [place] [address] PCP - General Internal Medicine 06/09/21 documented as of this encounter
--- OUTSIDE RECORDS SUMMARY | 2023-10-05 17:07 | XMS_ITS | Encounter Summary ---
Author Organization [facility] [place] [address] Care Team Providers Care Body Shop Worker Name Role Phone Polo Pearce Primary Care Provider [phone] Reason for Visit * Reason Onset Date Comments Pre Procedure Call 03/16/2023 Encounter Details Date Type Department Care Team (Late st Contact Info) Description 03/16/2023 Telephone Cardiology at [address] [phone] Mary Motta, RN Pre Procedure Call Social History Tobacco Use Types Packs/Day Years Used Date Smoking Tobacco: Never Smokeless Tobacco: Never Alcohol Use Standard Drinks/Week Comments Never 0 (1 standard drink = 0.6 oz pur e alcohol) [facility] Utilities Answer Date Recorded In the past 12 months has e [employer]), gas, oil, or water [employer] threatened to shut off services in your [...] ESTSummary: Pre Procedure Call: SVT Ablation EP TRAVELING AUDITOR COORDINATION CHECKLIST Patient Name: Indira Roque Patient Performing Acid Adjuster: Jed Tovar Referring Provider: Jaspreet Kinsey Date of Procedure: 04/01/23 Arrival Time/ Case Time: 6:00 am / 7:30 am Check In Location: [facility] 4W Date Patient was Called: 04/01/23 Procedure: SVT Ablation Company: [employer] Type: RF Orders: Yes Lab Orders: Yes [...] overnight , understands that they will need local company flatbed truck driver on day of discharge Notified pt that Esqueda catheter may be placed on day of procedure depending on type & duration of case. documented in this encounter Plan of Treatment Upcoming Encounters Date Type Department Care Team (Late st Contact Info) Description 10/08/2023 8:30 AM EDT Tech Visit Vascular Lab at [place] [phone] Channing [place]bo[place] 10/08/2023 9:30 AM EDT Office Visit [place] [address] MD [facility] [place] [place] [address] 10/21/2023 10:30 AM EDT Appointment [place] [phone] Mary Reyes [facility] [place] [address] 10/21/2023 11:30 AM EDT Appointment [place] [phone] Mary Reyes [facility] [place] [address] 10/21/2023 12:30 PM EDT Appointment [place] [phone] Mary Reyes [facility] [place] [address] 10/21/2023 1:30 PM EDT Appointment [place] [address] Mary Reyes APRN [facility] [place] [address] 10/21/2023 2:30 PM EDT Appointment [place] [address] Mary Reyes APRN [facility] [place] [address] 10/26/2023 4:00 PM EDT Office Visit Cardiology at [address] [phone] Jaspreet Kinsey MD [facility] [place] [address] 10/28/2023 9:00 AM EDT Office [place] [address] 10/29/2023 10:00 AM EDT Clinical Support [place] [address] 10/29/2023 10:15 AM EDT Procedure [place] [address] 11/01/2023 5:00 PM EDT Office Visit [place] [address] Selene Browning, PhD [facility] [place] [address] 11/22/2023 4:40 PM EDT Office Visit Cardiology at [address] [phone] Porsha Mcdaniels MD [facility] [place] [address] 12/13/2023 10:00 AM EDT Clinical Support [place] [address] Lucero Romero, RD [facility] [place] [address] documented as of this encounter Visit Diagnoses Not on filedocumented in this encounter Care Teams Body Shop Worker Relationship Specialty Start Date End Date Polo Pearce PA [address] [place] [address] PCP - General Internal Medicine 06/09/21 documented as of this encounter
--- OUTSIDE RECORDS SUMMARY | 2023-10-05 17:07 | XMS_ITS | Encounter Summary ---
[place] [address] Care Team Providers Care Obstetric Assistant Name Role Phone Polo Pearce Primary Care Provider [phone] Encounter Details Date Type Department Care Team (Late st Contact Info) Description 10/20/2022 8:00 AM EDT Tech [place] [phone] Florencia Callahan [place] Pulmonary embolism, unspecified chronicity, [...] AM EDT Tech [place] [address] Channing Escob[place] 10/08/2023 9:30 AM EDT Office [place] [address] MD [facility] [place] [address] 10/21/2023 10:30 AM EDT Appointment [place] [phone] [place] [address] 10/21/2023 11:30 AM EDT Appointment [place] [phone] [place] [address] 10/21/2023 12:30 PM EDT Appointment [place] [phone] Mary Reyes [facility] [place] [address] 10/21/2023 1:30 PM EDT Appointment [place] [address] [place] [address] 10/21/2023 2:30 PM EDT Appointment [place] [address] [place] [address] 10/26/2023 4:00 PM EDT Office Visit Cardiology at [address] [phone] Jaspreet Kinsey MD [facility] [place] [address] 10/28/2023 9:00 AM EDT Office [place] [address] 10/29/2023 10:00 AM EDT Clinical Support [place] [address] 10/29/2023 10:15 AM EDT Procedure visit [place] [address] 11/01/2023 5:00 PM EDT Office [place] [phone] Selene Browning, PhD [facility] [place] [address] 11/22/2023 4:40 PM EDT Office Visit Cardiology at [address] [phone] Porsha Mcdaniels MD [facility] [place] [address] 12/13/2023 10:00 AM EDT Clinical Support [place] [phone] Lucero Romero, [facility] [place] [address] documented as of this encounter Procedures Procedure [...] (Bezet) 525 ms MUSE SYSTEM Calculated R [place] 41 degrees MUSE SYSTEM Calculated T [place] 40 degrees MUSE SYSTEM INTERPRETATION Atrial fibrillation Nonspecific ST and T wave abnormality Prolonged QTc Abnormal ECG When compared with ECG of 08-OCT-2022 16:19, Atrial fibrillation has replaced Sinus rhythm Vent. rate has increased BY ??34 BPM Nonspecific T wave abnormality, improved in Inferior leads QT has lengthened I personally reviewed the tracing and edited the fellows interpretation Confirmed by fellow Otis Rader ([id number]) on 10/20/2022 3:03:05 PM Confirmed by MD Maxwell Hannah ([id number]) on 10/20/2022 7:08:19 PM MUSE SYSTEM 10/20/2022 10:0 3 AM EDT 10/20/2022 7:08 PM EDT Unknown ECG ORDERABLES MUSE SYSTEM * Duplex Study for DVT, Bilat legs (10/20/2022 8:06 AM EDT) Pathologist [facility] VB Text Report Department: Vascular Surgery Lab Patient: [id number] (LOIDA ROQUE) CPT: 82956 Referring Physician: MAMIE MARX ?? Phone: Indications: [...] present documented in this encounter Care Teams Obstetric Assistant Relationship Specialty Start Date End Date Polo Pearce PA [address] [place] [address] PCP - General Internal Medicine 06/09/21 documented as of this encounter
--- OUTSIDE RECORDS SUMMARY | 2023-10-05 17:07 | XMS_ITS | Encounter Summary ---
[place] [address] Care Team Providers Care Scarifier Operator Name Role Phone Polo Pearce Primary Care Provider [phone] Encounter Details Date Type Department Care Team (Late st Contact Info) Description 10/20/2022 Telephone Cardiology at [address] [phone] Gianna Day, RN Social History [...] AM EDT Tech [place] [address] Channing [place]ob[place] 10/08/2023 9:30 AM EDT Office Visit [place] [address] MD [facility] [place] [address] 10/21/2023 10:30 AM EDT Appointment [place] [address] [place] [address] 10/21/2023 11:30 AM EDT Appointment [place] [address] [place] [address] 10/21/2023 12:30 PM EDT Appointment [place] [address] [place] [address] 10/21/2023 1:30 PM EDT Appointment [place] [address] [place] [address] 10/21/2023 2:30 PM EDT Appointment [place] [address] [place] [address] 10/26/2023 4:00 PM EDT Office Visit Cardiology at [address] [place] [address] Jaspreet Kinsey MD [facility] [place] [address] 10/28/2023 9:00 AM EDT Office [place] [address] 10/29/2023 10:00 AM EDT Clinical [place] [address] 10/29/2023 10:15 AM EDT Procedure [place] [address] 11/01/2023 5:00 PM EDT Office Visit Gastroenterology at [place] [phone] Selene Browning, [facility] [place] [address] 11/22/2023 4:40 PM EDT Office Visit Cardiology at [address] [phone] Porsha Mcdaniels MD [facility] [place] [address] 12/13/2023 10:00 AM EDT Clinical Support [place] [phone] [facility] [place] [address] documented as of this encounter Visit Diagnoses Not on filedocumented in this encounter Care Teams Scarifier Operator Relationship Specialty Start Date End Date Polo Pearce PA Sb ARELLANO [address] [place] [address] PCP - General Internal Medicine 06/09/21 documented as of this encounter
--- OUTSIDE RECORDS SUMMARY | 2023-10-05 17:07 | XMS_ITS | Encounter Summary ---
Author Organization [facility] Address [facility] [place] [address] Care Team Providers Care Hydroelectric Production Manager Name Role Phone Polo Pearce Primary Care Provider [phone] Reason for Visit * Reason Comments Congestive Heart Failure HFpEF Atrial Fibrillation Encounter Details Date Type Department Care Team (Late st Contact Info) Description 11/17/2022 9:00 AM EDT Office Visit Cardiology at [address] [phone] Jaspreet Kinsey MD [facility] [place] [address] Paroxysmal atrial fibrillation; Heart failure with preserved [...] In the interim, she was seen at [facility] vascular clinic and whilst having an episode [...] 30 DAYS fluticasone propionate (FLONASE) 50 mcg/actuation [place], Suspension 1 spray, Each Nare, DAILY gabapentin [...] upper lobe. Started on eliquis 08/2022 TTE ([facility]): normal bi-v s/f. No significant VHD (HFpEF) heart failure with preserved ejection fraction 05/2021: subacute, presented to [facility] with RUQ pain, weight gain, and progressive [...] AM EDT Tech Visit [place] [phone] [place] 10/08/2023 9:30 AM EDT Office [place] [phone] MD [facility] [place] [place] [address] 10/21/2023 10:30 AM EDT Appointment [place] [phone] Mary Reyes APRN [facility] [place] [address] 10/21/2023 11:30 AM EDT Appointment Nuclear Medicine [place] [facility] [address] Mary Reyes [facility] [place] [address] 10/21/2023 12:30 PM EDT Appointment [place] [address] Mary Reyes [facility] [place] [address] 10/21/2023 1:30 PM EDT Appointment [place] [address] [place] [address] 10/21/2023 2:30 PM EDT Appointment [place] [address] [place] [address] 10/26/2023 4:00 PM EDT Office Visit Cardiology at [address] [phone] Jaspreet Kinsey MD [facility] [place] [place] [address] 10/28/2023 9:00 AM EDT Office [place] [address] 10/29/2023 10:00 AM EDT Clinical [place] [address] 10/29/2023 10:15 AM EDT Procedure [place] [address] 11/01/2023 5:00 PM EDT Office [place] [phone] Selene Browning, PhD [facility] [place] [address] 11/22/2023 4:40 PM EDT Office Visit Cardiology at [address] [phone] Porsha Mcdaniels MD [facility] [place] [place] [address] 12/13/2023 10:00 AM EDT Clinical [place] [phone] [facility] [place] [place] [address] documented as of this encounter Visit Diagnoses Diagnosis Paroxysmal atrial fibrillation Atrial fibrillation Heart failure with preserved ejection fraction, unspecified HF chronicity Pulmonary embolism without acute cor pulmonale, unspecified chronicity, unspecified pulmonary embolism type Chronic heart failure with preserved ejection fraction documented in this encounter Care Teams Hydroelectric Production Manager Relationship Specialty Start Date End Date Polo Pearce PA [address] [place] [address] PCP - General Internal Medicine 06/09/21 documented as of this encounter
--- OUTSIDE RECORDS SUMMARY | 2023-10-05 17:07 | XMS_ITS | Encounter Summary ---
Author Organization [facility] Address [facility] [place] [address] Care Team Providers Care Sheet Manufacturing Supervisor Name Role Phone Polo Pearce Primary Care Provider [phone] Encounter Details Date Type Department Care Team (Latest Contact Info) Description 02/16/2023 Travel Social History Tobacco Use Types Packs/Day Years Used Date Smoking Tobacco: Never Smokeless Tobacco: Never Alcohol Use Standard Drinks/Week Comments Never 0 (1 standard drink = 0.6 oz pur e alcohol) [facility] Utilities Answer Date Recorded In the [...] AM EDT Tech [place] [phone] [place] 10/08/2023 9:30 AM EDT Office [place] [address] MD [facility] [place] [address] 10/21/2023 10:30 AM EDT Appointment Nuclear Medicine at [place] [phone] Mary Reyes MEDIATION COMMISSIONER [facility] [place] [address] 10/21/2023 11:30 AM EDT Appointment [place] [address]-1000 Mary Reyes MEDIATION COMMISSIONER [facility] [place] [address] 10/21/2023 12:30 PM EDT Appointment [place] [address] Mary Reyes MEDIATION COMMISSIONER [facility] [place] [address] 10/21/2023 1:30 PM EDT Appointment [place] [address] [place] [address] 10/21/2023 2:30 PM EDT Appointment [place] [address] [place] [address] 10/26/2023 4:00 PM EDT Office Visit Cardiology at [address] [address] Jaspreet Kinsey MD [facility] [place] [address] 10/28/2023 9:00 AM EDT Office Visit [place] [address] 10/29/2023 10:00 AM EDT Clinical Support [place] [address] 10/29/2023 10:15 AM EDT Procedure visit Gastro[place] [address] 11/01/2023 5:00 PM EDT Office [place] [address] Selene Browning, PhD [facility] PS[place] [address] 11/22/2023 4:40 PM EDT Office Visit Cardiology at [address] [address] Porsha Mcdaniels MD [facility] [place] [address] 12/13/2023 10:00 AM EDT Clinical Support [place] [address] [facility] [place] [address] documented as of this encounter Visit Diagnoses Not on filedocumented in this encounter Care Teams Sheet Manufacturing Supervisor Relationship Specialty Start Date End Date Polo Pearce PA [address] [place] [address] PCP - General Internal Medicine 06/09/21 documented as of this encounter
--- OUTSIDE RECORDS SUMMARY | 2023-10-05 17:07 | XMS_ITS | Encounter Summary ---
Author Organization [facility] Address [facility] [place] [address] Care Team Providers Care Textile Pin Worker Name Role Phone Polo Pearce Primary Care Provider [phone] Encounter Details Date Type Department Care Team (Late st Contact Info) Description 02/08/2023 Telephone Cardiology at [address] [phone] Ericka Brenner PA [facility] [place] [address] Social History Tobacco Use Types Packs/Day Years [...] PM Referring Provider: Dr. Iyer [facility] Brief History 52 year old female [...] acute aortopathy. 4. No acute pulmonary findings. [facility] 08/2019: Conclusions: * Normal coronary arteries OSH Interventions: Sl nitro Full dose ASA Assessment & Plan: 52 year old female with history of prior NSTEMI with normal coronaries 2019, recent coronary CTA with ca score 198), HTN, HLD, HFpEF, Afib (on Eliquis) who is presenting with chest pain. Has had similar presentation in 2019 with a [facility] demonstrating normal coronaries at that time. [...] as type 1 NSTEMI and transfer to [facility] for further evaluation. - agree with nitro gtt if not chest pain free - if persistent chest pain with nitro gtt would load Plavix 600mg - start IV heparin gtt 12 hours post last dose of Eliquis - BB as able, [place] statin - transfer to [facility] 02/08/23 Above recommendations were based on my discussion with Dr. Iyer; I have not personally interviewed or examined this patient. I encouraged them to contact us if there is any change in symptoms, decision- making, or further need for guidance in management. JOCY Valdivia-Chauncey Access Pager [phone] 02/08/2023 documented in this encounter Plan of Treatment Upcoming Encounters Date Type Department Care Team (Late st Contact Info) Description 10/08/2023 8:30 AM EDT Tech Visit Vascular Lab at [place] [phone] Channing Esc[place] 10/08/2023 9:30 AM EDT Office Visit Vascular Surgery at [place] [phone] MD [facility] [place] [address] 10/21/2023 10:30 AM EDT Appointment Nuclear Medicine at [place] [phone] Mary Reyes [facility] [place] [address] 10/21/2023 11:30 AM EDT Appointment Nuclear Medicine at [place] [phone] Mary Reyes APRN [facility] [place] [address] 10/21/2023 12:30 PM EDT Appointment [place] [address] [place] [address] 10/21/2023 1:30 PM EDT Appointment [place] [address] [place] [address] 10/21/2023 2:30 PM EDT Appointment [place] [address] [place] [address] 10/26/2023 4:00 PM EDT Office Visit Cardiology at [address] [phone] Jaspreet Kinsey MD [facility] [address] 10/28/2023 9:00 AM EDT Office [place] [address] 10/29/2023 10:00 AM EDT Clinical [place] [address] 10/29/2023 10:15 AM EDT Procedure [place] [address] 11/01/2023 5:00 PM EDT Office [place] [address] Selene Browning, PhD [facility] [place] [address] 11/22/2023 4:40 PM EDT Office Visit Cardiology at [address] [phone] Porsha Mcdaniels MD [facility] [address] 12/13/2023 10:00 AM EDT Clinical [place] [address] [facility] [place] [address] documented as of this encounter Visit Diagnoses Not on filedocumented in this encounter Care Teams Textile Pin Worker Relationship Specialty Start Date End Date Polo Pearce PA [address] [place] [address] PCP - General Internal Medicine 06/09/21 documented as of this encounter
--- OUTSIDE RECORDS SUMMARY | 2023-10-05 17:07 | XMS_ITS | Encounter Summary ---
Author Organization [facility] Address [facility] [place] [address] Care Team Providers Care Sand Carrier Name Role Phone Pool Pearce Primary Care Provider [phone] Reason for Visit * Reason Comments Congestive Heart Failure HFpEF Encounter Details Date Type Department Care Team (Late st Contact Info) Description 10/08/2022 4:00 PM EDT Office Visit Cardiology at [address] [address] Jaspreet Kinsey MD [facility] [place] [address] Pulmonary embolism, unspecified chronicity, unspecified pulmonary embolism [...] through Care Everywhere. * Low Sodium Diet (Albanian) * Low Sodium Foods: General Info (Albanian) documented in this encounter Progress Notes * [...] be estimated Intercurrently, patient was admitted to [facility] 09/2022. She presented after developing acute worseningof [...] 30 DAYS fluticasone propionate (FLONASE) 50 mcg/actuation [place], Suspension 1 spray, Each Nare, DAILY gabapentin [...] preserved ejection fraction 05/2021: subacute, [facility] to [facility] [...] AM EDT Tech Visit Vascular Lab at [place] [phone] [place] 10/08/2023 9:30 AM EDT Office [place] [address] MD [facility] [place] [address] 10/21/2023 10:30 AM EDT Appointment Nuclear Medicine at [place] [phone] Mary Reyes APRN [facility] [place] [address] 10/21/2023 11:30 AM EDT Appointment [place] [address] Mary Reyes APRN [facility] [place] [address] 10/21/2023 12:30 PM EDT Appointment [place] [address] Mary Reyes APRN [facility] [place] [address] 10/21/2023 1:30 PM EDT Appointment Nuclear Medicine at [place] [phone] Mary Reyes FITNESS SERVICES MANAGER [facility] [place] [address] 10/21/2023 2:30 PM EDT Appointment [place] [address] [address] [facility] [place] [address] 10/26/2023 4:00 PM EDT Office Visit Cardiology at [address] [address] Jaspreet Kinsey MD [facility] [place] [address] 10/28/2023 9:00 AM EDT Office [place] [address] 10/29/2023 10:00 AM EDT Clinical [place] [address] 10/29/2023 10:15 AM EDT Procedure [place] [address] 11/01/2023 5:00 PM EDT Office [place] [phone] Selene Browning, PhD [facility] [address] 11/22/2023 4:40 PM EDT Office Visit Cardiology at [address] [address] Porsha Mcdaniels MD [facility] [place] [address] 12/13/2023 10:00 AM EDT Clinical [place] [address]-[address] [facility] [place] [address] documented as of this encounter Visit Diagnoses Diagnosis Pulmonary embolism, unspecified chronicity, unspecified pulmonary embolism type, unspecified whether acute cor pulmonale present Heart failure with preserved ejection fraction, unspecified HF chronicity Chronic heart failure with preserved ejection fraction documented in this encounter Care Teams Sand Carrier Relationship Specialty Start Date End Date Polo Pearce PA [address] [place] [address] PCP - General Internal Medicine 06/09/21 documented as of this encounter
--- OUTSIDE RECORDS SUMMARY | 2023-10-05 17:07 | XMS_ITS | Encounter Summary ---
Author Organization [facility] [place] [address] Care Team Providers Care Extractor Machine Operator Name Role Phone Polo Pearce Primary Care Provider [phone] Encounter Details Date Type Department Care Team (Late st Contact Info) Description 03/10/2023 Telephone Cardiology at [address] [place] [address] Nilda Mayes, RN Social History Tobacco Use Types Packs/Day Years Used Date Smoking Tobacco: Never Smokeless Tobacco: Never Alcohol Use Standard Drinks/Week Comments Never 0 (1 standard drink = 0.6 oz pur e alcohol) [facility] Utilities Answer Date Recorded In the past 12 months has e electric, gas, oil, or water [employer] threatened to shut off services in your [...] AM EDT Tech [place] [address] [address] [place] 10/08/2023 9:30 AM EDT Office [place] [address] MD [facility] [place] [place] [address] 10/21/2023 10:30 AM EDT Appointment [place] [address] Mary Reyes APRN [facility] [place] [address] 10/21/2023 11:30 AM EDT Appointment [place] [address] Mary Reyes [place] [address] 10/21/2023 12:30 PM EDT Appointment [place] [address] Mary Reyes [place] [address] 10/21/2023 1:30 PM EDT Appointment [place] [address] [place] [address] 10/21/2023 2:30 PM EDT Appointment [place] [address] [place] [address] 10/26/2023 4:00 PM EDT Office Visit Cardiology at [address] [phone] Jaspreet Kinsey MD [facility] [place] [address] 10/28/2023 9:00 AM EDT Office [place] [address] 10/29/2023 10:00 AM EDT Clinical [place] [address] 10/29/2023 10:15 AM EDT Procedure [place] [address] 11/01/2023 5:00 PM EDT Office Visit Gastroenterology at [place] [phone] Selene Browning, PhD [facility] [place] [address] 11/22/2023 4:40 PM EDT Office Visit Cardiology at [place] [phone] Porsha Mcdaniels MD [facility] [place] [address] 12/13/2023 10:00 AM EDT Clinical [place] [address]6956[address] [facility] [place] [address] documented as of this encounter Visit Diagnoses Not on filedocumented in this encounter Care Teams Extractor Machine Operator Relationship Specialty Start Date End Date Polo Pearce PA [address] [place] [address] PCP - General Internal Medicine 06/09/21 documented as of this encounter
--- OUTSIDE RECORDS SUMMARY | 2023-10-05 17:07 | XMS_ITS | Encounter Summary ---
Author Organization [facility] Address [facility] [place] [address] Care Team Providers Care Coating Machine Operator Helper Name Role Phone Polo Pearce Primary Care Provider [phone] Encounter Details Date Type Department Care Team (Late st Contact Info) Description 12/22/2022 Telephone Cardiology at [address] [place] [address] Jaspreet Kinsey MD [facility] [place] [address] Social History Tobacco Use Types Packs/Day Years [...] AM EDT Tech [place] [address] [place] Esc[place] 10/08/2023 9:30 AM EDT Office [place] [address] MD [facility] [place] [address] 10/21/2023 10:30 AM EDT Appointment Nuclear Medicine at [place] [phone] [place] [address] 10/21/2023 11:30 AM EDT Appointment Nuclear Medicine at [place] [phone] [place] [address] 10/21/2023 12:30 PM EDT Appointment [place] [address] [place] [address] 10/21/2023 1:30 PM EDT Appointment [place] [address] [place] [address] 10/21/2023 2:30 PM EDT Appointment [place] [address] Mary Reyes APRN [facility] [place] [address] 10/26/2023 4:00 PM EDT Office Visit Cardiology at [address] [phone] Jaspreet Kinsey MD [facility] [place] [address] 10/28/2023 9:00 AM EDT Office Visit [place] [address] 10/29/2023 10:00 AM EDT Clinical Support [place] [address] 10/29/2023 10:15 AM EDT Procedure visit [place] [address] 11/01/2023 5:00 PM EDT Office Visit Gastroenterology at [place] [phone] Selene Browning, PhD [facility] [place] [address] 11/22/2023 4:40 PM EDT Office Visit Cardiology at [address] [phone] Porsha Mcdaniels MD [facility] [place] [address] 12/13/2023 10:00 AM EDT Clinical [place] [phone] [facility] [place] [address] documented as of this encounter Visit Diagnoses Not on filedocumented in this encounter Care Teams Coating Machine Operator Helper Relationship Specialty Start Date End Date Polo Pearce PA [address] [place] [address] PCP - General Internal Medicine 06/09/21 documented as of this encounter
--- OUTSIDE RECORDS SUMMARY | 2023-10-05 17:07 | XMS_ITS | Encounter Summary ---
Author Organization [facility] Address [facility] [place] [address] Care Team Providers Care Mimeographer Name Role Phone Polo Pearce Primary Care Provider [phone] Reason for Visit * Reason Comments Palpitations SVT Encounter Details Date Type Department Care Team (Late st Contact Info) Description 03/22/2023 4:20 PM EST Office Visit Cardiology at [address] [address] Jaspreet Kinsey MD [facility] [place] [address] SVT (supraventricular tachycardia); Pulmonary embolism without acute cor pulmonale, unspecified chronicity, unspecified pulmonary embolism type; Paroxysmal atrial fibrillation; Heart failure with preserved ejection fraction, unspecified HF chronicity Social History Tobacco Use Types Packs/Day Years Used Date Smoking Tobacco: Never Smokeless Tobacco: Never Alcohol Use Standard Drinks/Week Comments Never 0 (1 standard drink = 0.6 oz pur e alcohol) [facility] Utilities Answer Date Recorded In the past 12 months has [employer] electric, gas, oil, or water [employer] threatened to shut off services in your [...] has been participating in cardiac rehab at [facility] and finds herself making gains in exertional [...] 30 DAYS fluticasone propionate (FLONASE) 50 mcg/actuation [place], Suspension 1 spray, Each Nare, DAILY gabapentin [...] upper lobe. Started on eliquis 08/2022 TTE ([facility]): normal bi-v s/f. No significant VHD (HFpEF) heart failure with preserved ejection fraction 05/2021: subacute, [facility] [...] AM EDT Tech [place] [phone] [place] [place] 10/08/2023 9:30 AM EDT Office [place] [address]-[address] MD [facility] DR [place] [address] 10/21/2023 10:30 AM EDT Appointment [place] [address] Mary Reyes [place] [address] 10/21/2023 11:30 AM EDT Appointment [place] [address] Mary Reyes [place] [address] 10/21/2023 12:30 PM EDT Appointment [place] [address] [place] [address] 10/21/2023 1:30 PM EDT Appointment [place] [address] [place] [address] 10/21/2023 2:30 PM EDT Appointment [place] [address] Mary Reyes [place] [address] 10/26/2023 4:00 PM EDT Office Visit Cardiology at [address] [phone] Jaspreet Kinsey MD [facility] [place] [address] 10/28/2023 9:00 AM EDT Office [place] [address] 10/29/2023 10:00 AM EDT Clinical [place] [address] 10/29/2023 10:15 AM EDT Procedure [place] [address] 11/01/2023 5:00 PM EDT Office Visit Gastroenterology at [place] [phone] Selene Browning, PhD [facility] [place] [address] 11/22/2023 4:40 PM EDT Office Visit Cardiology at [address] [address] Porsha Mcdaniels MD [facility] [place] [address] 12/13/2023 10:00 AM EDT Clinical [place] [address] Lucero Romero, [facility] [place] [address] documented as of this encounter Visit Diagnoses Diagnosis SVT (supraventricular tachycardia) Other specified cardiac dysrhythmias Pulmonary embolism without acute cor pulmonale, unspecified chronicity, unspecified pulmonary embolism type Paroxysmal atrial fibrillation Atrial fibrillation Heart failure with preserved ejection fraction, unspecified HF chronicity documented in this encounter Care Teams Mimeographer Relationship Specialty Start Date End Date Polo Pearce PA [address] [place] [address] PCP - General Internal Medicine 06/09/21 documented as of this encounter
--- OUTSIDE RECORDS SUMMARY | 2023-10-05 17:07 | XMS_ITS | Encounter Summary ---
[place] [address] Care Team Providers Care Rail Flaw Detector Operator Name Role Phone Polo Pearce Primary Care Provider [phone] Encounter Details Date Type Department Care Team (Late st Contact Info) Description 02/08/2023 [place] [phone] Unknown None Social History Tobacco Use Types Packs/Day Years Used Date Smoking Tobacco: Never Smokeless Tobacco: Never Alcohol Use Standard Drinks/Week Comments Never 0 (1 standard drink = 0.6 oz pur e alcohol) [facility] Utilities Answer Date Recorded In the [...] AM EDT Tech [place] [phone] Channing Esc[place] 10/08/2023 9:30 AM EDT Office [place] [address] MD [facility] [place] [address] 10/21/2023 10:30 AM EDT Appointment [place] [address] Mary Reyes APRN [facility] [address] 10/21/2023 11:30 AM EDT Appointment [place] [address] Mary Reyes APRN [facility] [address] 10/21/2023 12:30 PM EDT Appointment [place] [address] Mary Reyes APRN [facility] [address] 10/21/2023 1:30 PM EDT Appointment Nuclear Medicine at [place] [phone] Mary Reyes [facility] [place] [address] 10/21/2023 2:30 PM EDT Appointment [place] [address] Mary Reyes [facility] [place] [address] 10/26/2023 4:00 PM EDT Office Visit Cardiology at [address] [phone] Jaspreet Kinsey MD [facility] [place] [address] 10/28/2023 9:00 AM EDT Office Visit [place] [address] 10/29/2023 10:00 AM EDT Clinical Support [place] [address] 10/29/2023 10:15 AM EDT Procedure visit [place] [address] 11/01/2023 5:00 PM EDT Office Visit [place] [phone] Selene Browning, PhD [facility] [place] [address] 11/22/2023 4:40 PM EDT Office Visit Cardiology at [address] [address] Porsha Mcdaniels MD [facility] [place] [address] 12/13/2023 10:00 AM EDT Clinical Support [place] [address] [facility] [place] [address] documented as of this encounter Procedures Procedure Name Priority Date/Time Associated Diagnosis Comments ECHOCARDIOGRAM TRANSTHORACIC Routine 02/08/2023 11:40 PM EST documented in this encounter Results * Echocardiogram Transthoracic (02/08/2023 11:40 PM EST) Anatomical Region Laterality Modality Cardiac Other 02/08/2023 11:4 0 PM EST Narrative 02/10/2023 3:09 PM EST [address] [place] [address] ? Echocardiogram Report Name: LOIDA ROQUE ?Study [...] without a pericardial effusion. Procedure Limited - 04216. Suboptimal quality. There is normal sinus rhythm. [...] Note Willy Gómez MD - 02/10/2023 1 [place] [address] Echocardiogram Report Name: LOIDA ROQUE Study Date: [...] without a pericardial effusion. Procedure Limited - 51354. Suboptimal quality. There is normal sinus rhythm. [...] filedocumented in this encounter Care Teams Rail Flaw Detector Operator Relationship Specialty Start Date End Date Polo Pearce PA [address] [place] [address] PCP - General Internal Medicine 06/09/21 documented as of this encounter
--- OUTSIDE RECORDS SUMMARY | 2023-10-05 17:08 | XMS_ITS | Encounter Summary ---
[place] [address] Care Team Providers Care Agricultural Education Teacher Name Role Phone Polo Pearce Primary Care Provider [phone] Reason for Referral * Diagnostic Test (Routine) - Closed Specialty Diagnoses / Procedures Referred By Jayant harris Referred To Contact Diagnoses Pulmonary embolism, unspecified chronicity, unspecified pulmonary embolism type, unspecified whether acute cor pulmonale present Procedures Duplex Study for DVT, Bilat legs Mamie Marx APRN [facility] [place] [address] [facility] Vascular Lab [address], [place] [address] Referral ID Status Reason Start Date Expiration Date V isits Requested Visits Authorized [id number] Closed Specialty Service Requested 07/31/2022 07/31/2023 1 1 Encounter Details Date Type Department Care Team (Late st Contact Info) Description 07/31/2022 Orders [place] [address] Mamie Marx APRN [facility] [place] [address] Pulmonary embolism, unspecified chronicity, unspecified pulmonary embolism [...] Tech Visit Vascular Lab at [place] [phone] Channing Escobedo [place] 10/08/2023 9:30 AM EDT Office [place] [address] MD [facility] [place] [address] 10/21/2023 10:30 AM EDT Appointment Nuclear Medicine at [place] [phone] Mary Reyes [facility] [address] 10/21/2023 11:30 AM EDT Appointment Nuclear Medicine at [place] [phone] Mary Reyes [place] [address] 10/21/2023 12:30 PM EDT Appointment [place] [phone] Mary Reyes [place] [address] 10/21/2023 1:30 PM EDT Appointment [place] [address] Mary Reyes APRN [facility] [place] [address] 10/21/2023 2:30 PM EDT Appointment [place] [address] Mary Reyes APRN [facility] [place] [address] 10/26/2023 4:00 PM EDT Office Visit Cardiology at [address] [phone] Jaspreet Kinsey MD [facility] [place] [address] 10/28/2023 9:00 AM EDT Office Visit [place] [address] 10/29/2023 10:00 AM EDT Clinical Support [place] [address] 10/29/2023 10:15 AM EDT Procedure visit [place] [address] 11/01/2023 5:00 PM EDT Office [place] [address] Selene Browning, PhD [facility] [place] [address] 11/22/2023 4:40 PM EDT Office Visit Cardiology at [address] [phone] Porsha Mcdaniels MD [facility] [place] [address] 12/13/2023 10:00 AM EDT Clinical Support [place] [address] Lucero Romero, [place] [facility] [place] [address] documented as of this encounter Results * Duplex Study for DVT, Bilat legs (10/20/2022 8:06 AM EDT) VB Text Report Department: Vascular Surgery Lab Patient: [id number] (LOIDA ROQUE) CPT: 82114 Referring Physician: MAMIE MARX ?? Phone: Indications: [...] present documented in this encounter Care Teams Agricultural Education Teacher Relationship Specialty Start Date End Date Polo Pearce PA [address] [place] [address] PCP - General Internal Medicine 06/09/21 documented as of this encounter
--- OUTSIDE RECORDS SUMMARY | 2023-10-05 17:08 | XMS_ITS | Encounter Summary ---
[place] [address] Care Team Providers Care Pharmacy Operations Coordinator Name Role Phone Polo Pearce Primary Care Provider [phone] Reason for Visit * Auth/Cert (Routine) Specialty Diagnoses / Procedures Referred By Jayant harris Referred To Contact Diagnoses NSTEMI (non-ST elevated myocardial infarction) NSTEMI Procedures EMERGENCY Willy Olivera MD [facility] [place] [address] [facility] Referral ID Status Reason Start Date Expiration Date Visits Re quested Visits Authorized [id number] 1 1 Encounter Details Date Type Department Care Team (Latest Contact Info) Description 09/27/2022 6:50 AM EDT - 09/27/2022 11:59 PM EDT Hospital Encounter [place] [address] Discharge Disposition: Home Social History Tobacco Use [...] as needed. fluticasone propionate (FLONASE) 50 mcg/actuation [place], Suspension 1 spray by Each Nare route [...] AM EDT Tech [place] [phone] [place]anning Escob[place] 10/08/2023 9:30 AM EDT Office Visit [place] [phone] MD [facility] [address] VASCULAR [place] [address] 10/21/2023 10:30 AM EDT Appointment [place] [address] Mary Reyes APRN [facility] HOSP[facility] [place] [address] 10/21/2023 11:30 AM EDT Appointment [place] [address] Mary Reyes [facility] [place] [address] 10/21/2023 12:30 PM EDT Appointment [place] [phone] [place] [address] 10/21/2023 1:30 PM EDT Appointment [place] [address] Mary Reyes [facility] [place] [address] 10/21/2023 2:30 PM EDT Appointment [place] [address] [place] [address] 10/26/2023 4:00 PM EDT Office Visit Cardiology at [address] [phone] Jaspreet Kinsey MD [facility] [place] [address] 10/28/2023 9:00 AM EDT Office [place] [address] 10/29/2023 10:00 AM EDT Clinical [place] [address] 10/29/2023 10:15 AM EDT Procedure [place] [address] 11/01/2023 5:00 PM EDT Office Visit [place] [phone] Selene Browning, PhD [facility] PSYCHIATRY [place] [address] 11/22/2023 4:40 PM EDT Office Visit Cardiology at [address] [phone] Porsha Mcdaniels MD [facility] [place] [address] 12/13/2023 10:00 AM EDT Clinical Support [place] [address]-[address] [facility] [place] [address] documented as of this encounter Procedures Procedure [...] mLs documented in this encounter Care Teams Pharmacy Operations Coordinator Relationship Specialty Start Date End Date Polo Pearce PA [address] [place] [address] PCP - General Internal Medicine 06/09/21 documented as of this encounter
--- OUTSIDE RECORDS SUMMARY | 2023-10-05 17:08 | XMS_ITS | Encounter Summary ---
Author Organization [facility] [place] [address] Care Team Providers Care Electric Motor Tester Assembler Name Role Phone Polo Pearce Primary Care Provider [phone] Encounter Details Date Type Department Care Team (Late st Contact Info) Description 03/10/2022 External [place] [phone] Social History Tobacco Use Types Packs/Day Years [...] AM EDT Tech [place] [address]1000 [place] Escob[place] 10/08/2023 9:30 AM EDT Office Visit [place] [address]-[address] MD [facility] [place] [place] [address] 10/21/2023 10:30 AM EDT Appointment [place] [address] Mary Reyes [place] [address] 10/21/2023 11:30 AM EDT Appointment Nuclear Medicine at [place] [phone] Mary Reyes [place] [address] 10/21/2023 12:30 PM EDT Appointment Nuclear Medicine at [place] [phone] Mary Reyes [place] [address] 10/21/2023 1:30 PM EDT Appointment [place] [address] Mary Reyes [place] [address] 10/21/2023 2:30 PM EDT Appointment [place] [address] Mary Reyes [place] [address] 10/26/2023 4:00 PM EDT Office Visit Cardiology at [address] [phone] Jaspreet Kinsey MD [facility] [place] [address] 10/28/2023 9:00 AM EDT Office [place] [address] 10/29/2023 10:00 AM EDT Clinical [place] [address] 10/29/2023 10:15 AM EDT Procedure [place] [address] 11/01/2023 5:00 PM EDT Office Visit Gastroenterology at [place] [phone] Selene Browning, PhD [facility] [place] [address] 11/22/2023 4:40 PM EDT [place] [address] Porsha Mcdaniels MD [facility] [place] [address] 12/13/2023 10:00 AM EDT Clinical Support [place] [address] Lucero Romero, [place] [place] [address] documented as of this encounter Procedures Procedure Name Priority Date/Time Associated Diagnosis Comments ECG SCAN Routine 03/10/2022 documented in this encounter Results * Scan Doc: ECG (03/10/2022) Historical Provider MD FLEMING MGR SCAN EX T ORDR/RSLT documented in this encounter Visit Diagnoses Not on filedocumented in this encounter Care Teams Electric Motor Tester Assembler Relationship Specialty Start Date End Date Polo Pearce PA [facility] [address] [place] [address] PCP - General Internal Medicine 06/09/21 documented as of this encounter
--- OUTSIDE RECORDS SUMMARY | 2023-10-05 17:08 | XMS_ITS | Encounter Summary ---
Author Organization [facility] [place] [address] Care Team Providers Care C 13 Catapult Operator Name Role Phone Polo Pearce Primary Care Provider [phone] Encounter Details Date Type Department Care Team (Late st Contact Info) Description 09/26/2022 External [place] [address] Social History Tobacco Use Types Packs/Day Years [...] EDT Tech Visit [place] [address] Channing Escobedo [place] 10/08/2023 9:30 AM EDT Office Visit [place] [phone] MD [facility] [place] [address] 10/21/2023 10:30 AM EDT Appointment [place] [address] Mary Reyes [place] [address] 10/21/2023 11:30 AM EDT Appointment [place] [address] Mary Reyes [place] [address] 10/21/2023 12:30 PM EDT Appointment [place] [address] Mayr Reyes [place] [address] 10/21/2023 1:30 PM EDT Appointment [place] [address] Mary Reyes [place] [address] 10/21/2023 2:30 PM EDT Appointment [place] [address] Mary Reyes [place] [address] 10/26/2023 4:00 PM EDT Office Visit Cardiology at [address] [phone] Jaspreet Kinsey MD [facility] [place] [address] 10/28/2023 9:00 AM EDT Office [place] [address] 10/29/2023 10:00 AM EDT Clinical [place] [address] 10/29/2023 10:15 AM EDT Procedure [place] [address] 11/01/2023 5:00 PM EDT Office Visit Gastroenterology at [place] [phone] Selene Browning, PhD [facility] [address] 11/22/2023 4:40 PM EDT Office Visit Cardiology at [place] [phone] Porsha Mcdaniels MD [facility] [place] [address] 12/13/2023 10:00 AM EDT Clinical Support Gastroenterology at [place] [phone] Lucero Romero, [facility] [place] [address] documented as of this encounter Procedures Procedure Name Priority Date/Time Associated Diagnosis Comments ECG SCAN Routine 09/26/2022 8:40 AM EDT documented in this encounter Results * Scan Doc: ECG (09/26/2022 8:40 AM EDT) Historical Provider MD LONNIE PRAKASH SCAN EX T ORDR/RSLT documented in this encounter Visit Diagnoses Not on filedocumented in this encounter Care Teams C 13 Catapult Operator Relationship Specialty Start Date End Date Polo Pearce PA [address] [place] [address] PCP - General Internal Medicine 06/09/21 documented as of this encounter
--- OUTSIDE RECORDS SUMMARY | 2023-10-05 17:08 | XMS_ITS | Encounter Summary ---
Author Organization [facility] [place] [address] Care Team Providers Care Leather Belt Shaper Name Role Phone Polo Pearce Primary Care Provider [phone] Reason for Visit * Reason Onset Date Comments Chest Pain 07/27/2022 Shortness of Breath 07/27/2022 Fatigue 07/27/2022 Encounter Details Date Type Department Care Team (Late st Contact Info) Description 07/27/2022 Telephone Cardiology at [address] [address] Jaspreet Kinsey MD [facility] [place] [address] Chest Pain; Shortness of Breath; Fatigue Social [...] EDT Florencia has been admitted inpatient at [facility]. * Telephone Encounter - Patricia Glasspeter Melgar - 07/27/2022 3:35 PM EDT Patient called and said she is now in [facility]. She said they did a CT scan and found blood clots on her lungs. She also has a fluid buildup. Please call her @ [phone] * Telephone Encounter - Nilda Mayes RN [...] for assessment. Plan: Florencia will go to [facility] for evaluation. documented in this encounter Plan of Treatment Upcoming Encounters Date Type Department Care Team (Late st Contact Info) Description 10/08/2023 8:30 AM EDT [place] [phone] Channing Escobedo [place] 10/08/2023 9:30 AM EDT Office Visit [place] [address] MD [facility] [place] [address] 10/21/2023 10:30 AM EDT Appointment [place] [address] Mary Reyes APRN [facility] [place] [address] 10/21/2023 11:30 AM EDT Appointment [place] [address] Mary Reyes [facility] [place] [address] 10/21/2023 12:30 PM EDT Appointment [place] [address] Mary Reyes [facility] [place] [address] 10/21/2023 1:30 PM EDT Appointment [place] [address] Mary Reyes [facility] [place] [address] 10/21/2023 2:30 PM EDT Appointment [place] [address] [place] [address] 10/26/2023 4:00 PM EDT Office Visit Cardiology at [address] [address] Jaspreet Kinsey MD [facility] [place] [address] 10/28/2023 9:00 AM EDT Office [place] [address] 10/29/2023 10:00 AM EDT Clinical [place] [address] 10/29/2023 10:15 AM EDT Procedure [place] [address] 11/01/2023 5:00 PM EDT Office Visit Gastroenterology at [place] [phone] Selene Browning, PhD [facility] [place] [address] 11/22/2023 4:40 PM EDT Office Visit Cardiology at [address] [phone] Porsha Mcdaniels MD [facility] [place] [address] 12/13/2023 10:00 AM EDT Clinical Support [place] [phone] Lucero Romero, [place] [facility] [place] [address] documented as of this encounter Visit Diagnoses Not on filedocumented in this encounter Care Teams Leather Belt Shaper Relationship Specialty Start Date End Date Polo Pearce PA [address] [place] [address] PCP - General Internal Medicine 06/09/21 documented as of this encounter
--- OUTSIDE RECORDS SUMMARY | 2023-10-05 17:08 | XMS_ITS | Encounter Summary ---
[place] [address] Care Team Providers Care Pierce And Shave Press Operator Name Role Phone Polo Pearce Primary Care Provider [phone] Encounter Details Date Type Department Care Team (Late st Contact Info) Description 03/11/2022 Telephone Cardiology at [address] [phone] Mary Motta, RN Social History Tobacco Use [...] Pre Procedure Call: SVT Ablation EP DIRECTOR MBA COORDINATION CHECKLIST Patient Name: Indira Roque Patient Performing Energy Project Engineer: Jed Tovar Referring Provider: Sobeida Jimenez Date of Procedure: 03/23/22 Arrival Time/ Case Time: 6:00 am / 7:30 am Check In Location: Color Developer Desk 4W Date Patient was Called: 03/11/22 [...] overnight , understands that they will need van driver on day of discharge Notified pt that Esqueda catheter may be placed on day of procedure depending on type & duration of case. Special Notes/Considerations: Given fequent ED visits to [facility] within the past 4 days, will contact pt next week (03/18) to see howsymptoms are progressing. If still having pain, issues will need to reschedule procedure per Dr. Tovar documented in this encounter Plan of Treatment Upcoming Encounters Date Type Department Care Team (Late st Contact Info) Description 10/08/2023 8:30 AM EDT Tech [place] [address] Channing Escobedo [place] 10/08/2023 9:30 AM EDT Office Visit Vascular [place] [address] MD [facility] [place] [address] 10/21/2023 10:30 AM EDT Appointment [place] [address] Mary Reyes APRN [facility] [place] [address] 10/21/2023 11:30 AM EDT Appointment [place] [address] Mary Reyes [facility] [place] [address] 10/21/2023 12:30 PM EDT Appointment [place] [address] Mary Reyes [facility] [place] [address] 10/21/2023 1:30 PM EDT Appointment [place] [address] Mary Reyes [facility] [place] [address] 10/21/2023 2:30 PM EDT Appointment [place] [address] Mary Reyes [facility] [place] [address] 10/26/2023 4:00 PM EDT Office Visit Cardiology at [address] [address] Jaspreet Kinsey MD [facility] [place] [address] 10/28/2023 9:00 AM EDT Office [place] [address] 10/29/2023 10:00 AM EDT Clinical [place] [address] 10/29/2023 10:15 AM EDT Procedure [place] [address] 11/01/2023 5:00 PM EDT Office Visit Gastro[place] [address] Selene Browning, PhD [facility] [place] [address] 11/22/2023 4:40 PM EDT Office Visit Cardiology at [address] [address] Porsha Mcdaniels MD [facility] [place] [address] 12/13/2023 10:00 AM EDT Clinical Support Gastro[place] [address] [facility] [place] [address] documented as of this encounter Visit Diagnoses Not on filedocumented in this encounter Care Teams Pierce And Shave Press Operator Relationship Specialty Start Date End Date Polo Pearce PA [address] [place] [address] PCP - General Internal Medicine 06/09/21 documented as of this encounter
--- OUTSIDE RECORDS SUMMARY | 2023-10-05 17:08 | XMS_ITS | Encounter Summary ---
Author Organization Formerly [facility] [place] [address] Care Team Providers Care Manager Site Name Role Phone Ramses Polo JOCY Primary Care Provider [phone] Encounter Details Date Type Department Care Team (Late st Contact Info) Description 03/11/2022 Orders Only Cardiology at [address] [phone] Jed Tovar MD [facility] [place] [address] SVT (supraventricular tachycardia) Social History Tobacco Use [...] EDT Tech Visit [place] [address] Channing Escobedo [place] 10/08/2023 9:30 AM EDT Office [place] [address] MD [facility] [place] [address] 10/21/2023 10:30 AM EDT Appointment Nuclear Medicine at [place] [phone] [place] [address] 10/21/2023 11:30 AM EDT Appointment [place] [phone] [place] [address] 10/21/2023 12:30 PM EDT Appointment [place] [phone] Mary [place] [address] 10/21/2023 1:30 PM EDT Appointment [place] [phone] Mary [place] [address] 10/21/2023 2:30 PM EDT Appointment [place] [phone] [place] [address] 10/26/2023 4:00 PM EDT Office Visit Cardiology at [address] [phone] Jaspreet Kinsey MD [facility] [place] [address] 10/28/2023 9:00 AM EDT Office Visit [place] [address] 10/29/2023 10:00 AM EDT Clinical Support [place] [address] 10/29/2023 10:15 AM EDT Procedure visit [place] [address] 11/01/2023 5:00 PM EDT Office Visit Gastroenterology at [place] [phone] Selene Browning, PhD [facility] [place] [address] 11/22/2023 4:40 PM EDT Office Visit Cardiology at [address] [address] Porsha Mcdaniels MD [facility] [place] [address] 12/13/2023 10:00 AM EDT Clinical Support [place] [phone] Lucero Romero, ALVA [facility] [place] [place] [address] documented as of this encounter Visit Diagnoses Diagnosis SVT (supraventricular tachycardia) Other specified cardiac dysrhythmias documented in this encounter Care Teams Manager Site Relationship Specialty Start Date End Date Polo Pearce PA Sb MOTT [address] [place] [address] PCP - General Internal Medicine 06/09/21 documented as of this encounter
--- OUTSIDE RECORDS SUMMARY | 2023-10-05 17:08 | XMS_ITS | Encounter Summary ---
Author Organization [facility] [address] Care Team Providers Care Barrel Endshaker Adjuster Name Role Phone Polo Pearce Primary Care Provider [phone] Reason for Referral * Consultation (Routine) - Closed Specialty Diagnoses / Procedures Referred By Jayant harris Referred To Contact Vascular Surgery Diagnoses Pulmonary embolism, unspecified chronicity, unspecified pulmonary embolism type, unspecified whether acute cor pulmonale present ROUTINE, SALVATORE, BLE DVT Vascular medicine PE clinic: seemingly unprovoked small PE. review consideration of hypercoagulability testing Jaspreet Kinsey MD [facility] [place] [address] Elvin Maya MD [facility] [place] [address] Referral ID Status Reason Start Date Expiration Date V isits Requested Visits Authorized [id number] Closed Consult, Test & Treat 07/30/2022 07/30/2023 1 1 Reason for Visit * Reason Comments Coronary Artery Disease Congestive Heart Failure HFpEF Chest Pain Encounter Details Date Type Department Care Team (Late st Contact Info) Description 07/30/2022 9:20 AM EDT Office Visit Cardiology at [address] [address] Jaspreet Kinsey MD [facility] [place] [address] Heart failure with preserved ejection fraction, unspecified [...] Intercurrently, patient presented earlier this week to [facility] with an abrupt increase in fatigue/dyspnea x [...] a significant increase in UOP; however, at [facility] notes they gave me something that they [...] DAYS ??? fluticasone propionate (FLONASE) 50 mcg/actuation [place], Suspension 1 spray, Each Nare, DAILY ??? [...] discharge summary and medication administration record from [facility] to see what was given to her [...] discharge summary and medication administration record from [facility] to see what was given to her to effect UOP positively - Diuresis: bumex 1 qd - Cardioprotection: - SGLT2i: jardiance - MRA: aldactone 25 documented in this encounter Plan of Treatment Upcoming Encounters Date Type Department Care Team (Late st Contact Info) Description 10/08/2023 8:30 AM EDT Tech [place] [address] Channing Escobedo [place] 10/08/2023 9:30 AM EDT Office [place] [phone] MD [facility] [place] [address] 10/21/2023 10:30 AM EDT Appointment [place] [address] Mary Reyes [facility] [address] 10/21/2023 11:30 AM EDT Appointment [place] [address] Mary Reyes [facility] [place] [address] 10/21/2023 12:30 PM EDT Appointment [place] [address] Mary Reyes [facility] [place] [address] 10/21/2023 1:30 PM EDT Appointment [place] [address] Mary Reyes [facility] [place] [address] 10/21/2023 2:30 PM EDT Appointment [place] [address] Mary Reyes [facility] [place] [address] 10/26/2023 4:00 PM EDT Office Visit Cardiology at [address] [phone] Jaspreet Kinsey MD [facility] [place] [address] 10/28/2023 9:00 AM EDT Office [place] [address] 10/29/2023 10:00 AM EDT Clinical [place] [address] 10/29/2023 10:15 AM EDT Procedure [place] [address] 11/01/2023 5:00 PM EDT Office Visit Gastroenterology at [place] [phone] Selene Browning, PhD [facility] [place] [address] 11/22/2023 4:40 PM EDT Office Visit Cardiology at [place] [phone] Porsha Mcdaniels MD [facility] [place] [address] 12/13/2023 10:00 AM EDT Clinical [place] [address] Lucero Romero, RD [facility] [place] [address] Scheduled Referrals Name Type Priority Associated Diagnoses [...] dysrhythmias documented in this encounter Care Teams Barrel Endshaker Adjuster Relationship Specialty Start Date End Date Polo Pearce PA Sb MOTT [address] [place] [address] PCP - General Internal Medicine 06/09/21 documented as of this encounter
--- OUTSIDE RECORDS SUMMARY | 2023-10-05 17:08 | XMS_ITS | Encounter Summary ---
Author Organization [facility] [place] [address] Care Team Providers Care Dehydrogenation Converter Operator Name Role Phone Polo Pearce Primary Care Provider [phone] Encounter Details Date Type Department Care Team (Late st Contact Info) Description 07/29/2022 9:45 PM EDT Ancillary Procedure [place] [phone] Marcia Kamara MD [facility] [place] [address] Social History Tobacco Use Types Packs/Day Years [...] AM EDT Tech [place] [phone] Channing Esocbedo [place] 10/08/2023 9:30 AM EDT Office Visit [place] [address] MD [facility] [place] [address] 10/21/2023 10:30 AM EDT Appointment Nuclear Medicine at [place] [phone] Mary Reyes [facility] [place] [address] 10/21/2023 11:30 AM EDT Appointment Nuclear Medicine at [place] [phone] Mary Reyes [facility] [place] [address] 10/21/2023 12:30 PM EDT Appointment [place] [address] Mary Reyes [facility] [place] [address] 10/21/2023 1:30 PM EDT Appointment [place] [address] Mary Reyes [facility] [place] [address] 10/21/2023 2:30 PM EDT Appointment [place] [phone] Mary Reyes [facility] [place] [address] 10/26/2023 4:00 PM EDT Office Visit Cardiology at [address] [phone] Jaspreet Kinsey MD [facility] [place] [address] 10/28/2023 9:00 AM EDT Office Visit [place] [address] 10/29/2023 10:00 AM EDT Clinical Support [place] [address] 10/29/2023 10:15 AM EDT Procedure visit [place] [address] 11/01/2023 5:00 PM EDT Office Visit [place] [phone] Selene Browning, PhD [facility] [place] [address] 11/22/2023 4:40 PM EDT Office Visit Cardiology at [address] [address] Porsha Mcdaniels MD [facility] [place] [address] 12/13/2023 10:00 AM EDT Clinical Support [place] [phone] [facility] [place] [address] documented as of this encounter Procedures Procedure Name Priority Date/Time Associated Diagnosis Comments FILM LIBRARY STORAGE ONLY CT CHEST Routine 07/29/2022 9:43 PM EDT documented in this encounter Results * Film Library- Storage Only CT Chest (07/29/2022 9:43 PM EDT) Narrative [facility] - 07/29/2022 9:43 PM EDT This exam is auto-finalizing. It's purpose is for storage only. Marcia Kamara MD IMG FILM LIBRARY ORD ERABLES [place], [place] documented in this encounter Visit Diagnoses Not on filedocumented in this encounter Care Teams Dehydrogenation Converter Operator Relationship Specialty Start Date End Date Polo Pearce PA Sb [address] [place] [address] PCP - General Internal Medicine 06/09/21 documented as of this encounter
--- OUTSIDE RECORDS SUMMARY | 2023-10-05 17:08 | XMS_ITS | Encounter Summary ---
[place] [address] Care Team Providers Care Chain Hooker Name Role Phone Polo Pearce Primary Care Provider [phone] Reason for Visit * Reason Onset Date Comments Follow-up 03/18/2022 Encounter Details Date Type Department Care Team (Late st Contact Info) Description 03/18/2022 Telephone Cardiology at [address] [phone] Mary Motta, RN Follow-up Social History Tobacco [...] Dr. Tovar Pt saw Dr. Kinsey (primary plate grainer on 03/16) where pt was known to [...] AM EDT Tech Visit Vascular Lab at [place] [phone] Channing Esc[place] 10/08/2023 9:30 AM EDT Office Visit [place] [address] MD [facility] [place] [address] 10/21/2023 10:30 AM EDT Appointment Nuclear Medicine at [place] [phone] Mary Reyes [facility] [place] [address] 10/21/2023 11:30 AM EDT Appointment Nuclear Medicine at [place] [phone] Mary Reyes [facility] [place] [address] 10/21/2023 12:30 PM EDT Appointment [place] [phone] Mary Reyes [facility] [place] [address] 10/21/2023 1:30 PM EDT Appointment [place] [address] Mary Reyes [place] [address] 10/21/2023 2:30 PM EDT Appointment [place] [address]-1000 Mary Reyes [place] [address] 10/26/2023 4:00 PM EDT Office Visit Cardiology at [address] [phone] Jaspreet Kinsey MD [facility] [place] [address] 10/28/2023 9:00 AM EDT Office [place] [address] 10/29/2023 10:00 AM EDT Clinical [place] [address] 10/29/2023 10:15 AM EDT Procedure [place] [address] 11/01/2023 5:00 PM EDT Office Visit [place] [phone] Selene Browning, PhD [facility] DR [place] [address] 11/22/2023 4:40 PM EDT Office Visit Cardiology at [address] [phone] Porsha Mcdaniels MD [facility] [place] [address] 12/13/2023 10:00 AM EDT Clinical Support [place] [address] Lucero Romero, ALVA [facility] [place] [address] documented as of this encounter Visit Diagnoses Not on filedocumented in this encounter Care Teams Chain Hooker Relationship Specialty Start Date End Date Polo Pearce PA S[address] [place] [address] PCP - General Internal Medicine 06/09/21 documented as of this encounter
--- OUTSIDE RECORDS SUMMARY | 2023-10-05 17:08 | XMS_ITS | Encounter Summary ---
Author Organization Formerly [facility] Address [facility] [place] [address] Care Team Providers Care Mixed Crop Farmer Name Role Phone Polo Pearce Primary Care Provider [phone] Reason for Visit * Reason Onset Date Comments Chest Pain 03/11/2022 Encounter Details Date Type Department Care Team (Late st Contact Info) Description 03/11/2022 Telephone Cardiology at [address] [phone] Jaspreet Kinsey MD [facility] [place] [address] Chest Pain Social History Tobacco Use Types [...] UTI, URI symptoms Requesting discharge summary(s) from [facility] from this week. Plan: to determine the indication and goals for this follow up cardiology appointment. From consultation by [facility] with Vianey Mike on 03/10/2021: Patient's chest [...] and blood in urine. Her number is [phone] should you have any questions. I looked in the chart and looks like we still need those records documented in this encounter Plan of Treatment Upcoming Encounters Date Type Department Care Team (Late st Contact Info) Description 10/08/2023 8:30 AM EDT Tech Visit [place] [phone] Channing Escobedo [place] 10/08/2023 9:30 AM EDT Office Visit [place] [phone] MD [facility] [place] [address] 10/21/2023 10:30 AM EDT Appointment [place] [address]-1000 Mary Reyes APRN [facility] [place] [address] 10/21/2023 11:30 AM EDT Appointment [place] [address] Mary Reyes [facility] [place] [address] 10/21/2023 12:30 PM EDT Appointment [place] [address] Mary Reyes [facility] [place] [address] 10/21/2023 1:30 PM EDT Appointment [place] [address] Mary Reyes [facility] [place] [address] 10/21/2023 2:30 PM EDT Appointment [place] [address] [place] [address] 10/26/2023 4:00 PM EDT Office Visit Cardiology at [address] [phone] Jaspreet Kinsey MD [facility] [place] [address] 10/28/2023 9:00 AM EDT Office Visit [place] [address] 10/29/2023 10:00 AM EDT Clinical Support [place] [address] 10/29/2023 10:15 AM EDT Procedure visit [place] [address] 11/01/2023 5:00 PM EDT Office Visit Gastroenterology at [place] [phone] Selene Browning, PhD [facility] [place] [address] 11/22/2023 4:40 PM EDT Office Visit Cardiology at [place] [phone] Porsha Mcdaniels MD [facility] [place] [address] 12/13/2023 10:00 AM EDT Clinical Support [place] [phone] Lucero Romero, [facility] [place] [address] documented as of this encounter Visit Diagnoses Not on filedocumented in this encounter Care Teams Mixed Crop Farmer Relationship Specialty Start Date End Date Polo Pearce PA S[address] [place] [address] PCP - General Internal Medicine 06/09/21 documented as of this encounter
--- OUTSIDE RECORDS SUMMARY | 2023-10-05 17:08 | XMS_ITS | Encounter Summary ---
Author Organization [facility] Address [facility] [place] [address] Care Team Providers Care Care Team Assistant Name Role Phone Polo Pearce Primary Care Provider [phone] Encounter Details Date Type Department Care Team (Late st Contact Info) Description 03/19/2022 Telephone Cardiology at [address] [phone] Jed Tovar MD [facility] [address] [place] [address] Social History Tobacco Use Types Packs/Day Years [...] for two weeks. Has been admitted to [facility] ED for this with rule out of aorta dissection. However, pain continues. Dr. Kinsey of [facility] cardiology has just begun diuretic therapy, in [...] EDT Tech [place] [address] Channing Escobedo [place] 10/08/2023 9:30 AM EDT Office [place] [address] MD [facility] DR VASCULAR SURGERY [place] [phone] 10/21/2023 10:30 AM EDT Appointment [place] [address] Mary Reyes [facility] [place] [address] 10/21/2023 11:30 AM EDT Appointment [place] [address] Mary Reyes [facility] [place] [address] 10/21/2023 12:30 PM EDT Appointment [place] [phone] Mary Reyes [facility] [place] [address] 10/21/2023 1:30 PM EDT Appointment [place] [address] [place] [address] 10/21/2023 2:30 PM EDT Appointment [place] [address] [place] [address] 10/26/2023 4:00 PM EDT Office Visit Cardiology at [address] [phone] Jaspreet Kinsey MD [facility] [place] [address] 10/28/2023 9:00 AM EDT Office [place] [address] 10/29/2023 10:00 AM EDT Clinical [place] [address] 10/29/2023 10:15 AM EDT Procedure [place] [address] 11/01/2023 5:00 PM EDT Office [place] [address] Selene Browning, PhD [facility] PS[place] [address] 11/22/2023 4:40 PM EDT Office Visit Cardiology at [address] [address] Porsha Mcdaniels MD [facility] [place] [address] 12/13/2023 10:00 AM EDT Clinical [place] [address] [facility] [place] [address] documented as of this encounter Visit Diagnoses Not on filedocumented in this encounter Care Teams Care Team Assistant Relationship Specialty Start Date End Date Polo Pearce PA [address] [place] [address] PCP - General Internal Medicine 06/09/21 documented as of this encounter
--- OUTSIDE RECORDS SUMMARY | 2023-10-05 17:08 | XMS_ITS | Encounter Summary ---
Author Organization [facility] Address [facility] [place] [address] Care Team Providers Care Cable Installation Technician Name Role Phone Polo Pearce Primary Care Provider [phone] Encounter Details Date Type Department Care Team (Late st Contact Info) Description 08/31/2022 Telephone Cardiology at [address] [phone] Carrol La PA [facility] [place] [address] Social History Tobacco Use Types Packs/Day Years [...] original note were not included. 08/31/2022 Indira Corbinugall Initial Contact Date: 08/31/2022 Contact time: 2:04 PM Referring Provider: Dr. Evans Patient Location: [facility] Brief History Lyubov Roque is a 52 y.o female with PMH of HFpEF, SVT, PE on Eliquis, HLD who presented to the OSH with nausea, diffuse abdominal pain. Developed chest pain that OSH provider reports was LUQ pain under left breast. [place] like a sharp, intermittent squeeze. Patient is [...] was LUQ abdominal pain under left breast. [place] like a sharp, intermittent squeeze that resolved [...] 300's range on prior lab checks in [facility] system. ACS seems unlikely at this time based on my discussion with Dr. Evans as her symptoms seem GI in origin. This may represent a type II NSTEMI in setting of CATIE and acute GI illness. I recommended close follow up with Dr. Kinsey, primary television inspector who can consider stress testing. In addition, [...] in management. Carrol La PA-C Access Pager [phone] 08/31/2022 documented in this encounter Plan of Treatment Upcoming Encounters Date Type Department Care Team (Late st Contact Info) Description 10/08/2023 8:30 AM EDT Tech Visit Vascular Lab at [place] [phone] Channing Escobedo [place] 10/08/2023 9:30 AM EDT Office Visit [place] [address] MD [facility] [place] [address] 10/21/2023 10:30 AM EDT Appointment Nuclear Medicine at [place] [phone] [place] [address] 10/21/2023 11:30 AM EDT Appointment [place] [phone] Mary Reyes [facility] [place] [address] 10/21/2023 12:30 PM EDT Appointment [place] [phone] Mary Reyes [facility] [address] 10/21/2023 1:30 PM EDT Appointment [place] [address] Mary Reyes APRN [facility] [place] [address] 10/21/2023 2:30 PM EDT Appointment [place] [address] Mary Reyes APRN [facility] [address] 10/26/2023 4:00 PM EDT Office Visit Cardiology at [address] [phone] Jaspreet Kinsey MD [facility] [place] [address] 10/28/2023 9:00 AM EDT Office [place] [address] 10/29/2023 10:00 AM EDT Clinical [place] [address] 10/29/2023 10:15 AM EDT Procedure [place] [address] 11/01/2023 5:00 PM EDT Office Visit [place] [address] Selene Browning, PhD [facility] [place] [address] 11/22/2023 4:40 PM EDT Office Visit Cardiology at [address] [phone] Porsha Mcdaniels MD [facility] [place] [address] 12/13/2023 10:00 AM EDT Clinical Support [place] [address] Lucero Romero, RD [facility] [place] [address] documented as of this encounter Visit Diagnoses Not on filedocumented in this encounter Care Teams Cable Installation Technician Relationship Specialty Start Date End Date Polo Pearce PA [address] [place] [address] PCP - General Internal Medicine 06/09/21 documented as of this encounter
--- OUTSIDE RECORDS SUMMARY | 2023-10-05 17:08 | XMS_ITS | Encounter Summary ---
Author Organization [facility] Address [facility] [place] [address] Care Team Providers Care Engine Lathe Set Up Operator Name Role Phone Polo Pearce Primary Care Provider [phone] Encounter Details Date Type Department Care Team (Late st Contact Info) Description 06/24/2022 Telephone Cardiology at [address] [place] [address] Jaspreet Kinsey MD [facility] [place] [address] Social History Tobacco Use Types Packs/Day Years [...] Aide Glass - 06/30/2022 11:54 AM EDT [facility] is faxing over her ER visits since [...] Best # to reach her is work [phone] documented in this encounter Plan of Treatment Upcoming Encounters Date Type Department Care Team (Late st Contact Info) Description 10/08/2023 8:30 AM EDT Tech [place] [phone] Ch[place] Esc[place] 10/08/2023 9:30 AM EDT Office [place] [address]-[address] MD [facility] [place] [address] 10/21/2023 10:30 AM EDT Appointment [place] [address]-1000 Mary Reyes APRN [facility] [place] [address] 10/21/2023 11:30 AM EDT Appointment [place] [address] [place] [address] 10/21/2023 12:30 PM EDT Appointment [place] [address] [place] [address] 10/21/2023 1:30 PM EDT Appointment [place] [address] [place] [address] 10/21/2023 2:30 PM EDT Appointment [place] [address] [place] [address] 10/26/2023 4:00 PM EDT Office Visit Cardiology at [address] [phone] Jaspreet Kinsey MD [facility] [place] [address] 10/28/2023 9:00 AM EDT Office [place] [address] 10/29/2023 10:00 AM EDT Clinical [place] [address] 10/29/2023 10:15 AM EDT Procedure [place] [address] 11/01/2023 5:00 PM EDT Office Visit Gastroenterology at [place] [phone] Selene Browning, PhD [facility] [place] [address] 11/22/2023 4:40 PM EDT Office Visit Cardiology at [address] [address] Porsha Mcdaniels MD [facility] [place] [address] 12/13/2023 10:00 AM EDT Clinical [place] [address] Lucero Romero, RD [facility] [place] [address] documented as of this encounter Visit Diagnoses Not on filedocumented in this encounter Care Teams Engine Lathe Set Up Operator Relationship Specialty Start Date End Date Polo Pearce PA Sb MOTT [address] [place] [address] PCP - General Internal Medicine 06/09/21 documented as of this encounter
--- OUTSIDE RECORDS SUMMARY | 2023-10-05 17:08 | XMS_ITS | Encounter Summary ---
Author Organization [facility] Address [facility] [place] [address] Care Team Providers Care Solar Installation Supervisor Name Role Phone Polo Pearce Primary Care Provider [phone] Reason for Visit * Reason Onset Date Comments Ascites 07/28/2022 Chest Pain 07/28/2022 Encounter Details Date Type Department Care Team (Late st Contact Info) Description 07/28/2022 Telephone Cardiology at [address] [address] Jaspreet Kinsey MD [facility] [place] [address] Ascites; Chest Pain Social History Tobacco Use [...] 10:10 AM EDT Indira is inpatient at [facility] today. Nurse Madison indicates she is alert [...] Creat 1.3 Plan: will remain inpatient at [facility] Outpatient CT heart planned on July 30 - cancel and reschedule (notified [facility] card lab Lorena) documented in this encounter Plan of Treatment Upcoming Encounters Date Type Department Care Team (Late st Contact Info) Description 10/08/2023 8:30 AM EDT Tech Visit Vascular Lab at [place] [phone] Channing Escobedo [place] 10/08/2023 9:30 AM EDT Office Visit Vascular Surgery at [place] [phone] MD [facility] [place] [address] 10/21/2023 10:30 AM EDT Appointment [place] [address] Mary Reyes [facility] [place] [address] 10/21/2023 11:30 AM EDT Appointment Nuclear Medicine at [place] [phone] Mary Reyes [facility] [place] [address] 10/21/2023 12:30 PM EDT Appointment [place] [address]-1000 Mary Reyes [facility] [place] [address] 10/21/2023 1:30 PM EDT Appointment [place] [address]-1000 Mary Reyes CMA [place] [address] 10/21/2023 2:30 PM EDT Appointment [place] [address]-1000 Mary Reyes CMA [place] [address] 10/26/2023 4:00 PM EDT Office Visit Cardiology at [address] [phone] Jaspreet Kinsey MD [facility] [place] [address] 10/28/2023 9:00 AM EDT Office Visit [place] [address] 10/29/2023 10:00 AM EDT Clinical Support [place] [address] 10/29/2023 10:15 AM EDT Procedure [place] [address] 11/01/2023 5:00 PM EDT Office Visit [place] [phone] Selene Browning, PhD [facility] [place] [address] 11/22/2023 4:40 PM EDT Office Visit Cardiology at [address] [phone] Porsha Mcdaniels MD [facility] [place] [address] 12/13/2023 10:00 AM EDT Clinical Support [place] [address] Lucero Romero, [facility] [place] [address] documented as of this encounter Visit Diagnoses Not on filedocumented in this encounter Care Teams Solar Installation Supervisor Relationship Specialty Start Date End Date Polo Pearce PA [address] [place] [address] PCP - General Internal Medicine 06/09/21 documented as of this encounter
--- OUTSIDE RECORDS SUMMARY | 2023-10-05 17:08 | XMS_ITS | Encounter Summary ---
Author Organization [facility] Address [facility] [place] [address] Care Team Providers Care Pest Locator Name Role Phone Polo Pearce Primary Care Provider [phone] Reason for Visit * Reason Comments Congestive Heart Failure Encounter Details Date Type Department Care Team (Late st Contact Info) Description 03/16/2022 3:20 PM EST Office Visit Cardiology at [address] [address] Jaspreet Kinsey MD [facility] [place] [address] Heart failure with preserved ejection fraction, unspecified [...] [facility] but shortly thereafter started [...] Rfl: ??? fluticasone propionate (FLONASE) 50 mcg/actuation [place], Suspension, 1 spray by Each Nare routedaily., [...] ejection fraction 05/2021: subacute, presented to [facility] with RUQ pain, weight gain, and [...] Tech Visit Vascular Lab at [place] [phone] [place] 10/08/2023 9:30 AM EDT Office Visit Vascular Surgery at [place] [phone] MD [facility] [place] [address] 10/21/2023 10:30 AM EDT Appointment Nuclear Medicine at [place] [phone] [place] [address] 10/21/2023 11:30 AM EDT Appointment Nuclear Medicine at [place] [phone] Mary Reyes [facility] [address] 10/21/2023 12:30 PM EDT Appointment [place] [phone] Mary Reyes [facility] [address] 10/21/2023 1:30 PM EDT Appointment [place] [address] Mary Reyes APRN [facility] [place] [address] 10/21/2023 2:30 PM EDT Appointment [place] [address] Mary Reyes APRN [facility] [place] [address] 10/26/2023 4:00 PM EDT Office Visit Cardiology at [address] [phone] Jaspreet Kinsey MD [facility] [place] [address] 10/28/2023 9:00 AM EDT Office [place] [address] 10/29/2023 10:00 AM EDT Clinical [place] [address] 10/29/2023 10:15 AM EDT Procedure [place] [address] 11/01/2023 5:00 PM EDT Office Visit [place] [address] Selene Browning, PhD [facility] [place] [address] 11/22/2023 4:40 PM EDT Office Visit Cardiology at [address] [phone] Porsha Mcdaniels MD [facility] [place] [address] 12/13/2023 10:00 AM EDT Clinical Support [place] [address] Lucero Romero, RD [facility] [place] [address] documented as of this encounter Visit Diagnoses Diagnosis Heart failure with preserved ejection fraction, unspecified HF chronicity SVT (supraventricular tachycardia) Other specified cardiac dysrhythmias documented in this encounter Care Teams Pest Locator Relationship Specialty Start Date End Date Polo Pearce PA [address] [facility] 1 [place] [address] PCP - General Internal Medicine 06/09/21 documented as of this encounter
--- OUTSIDE RECORDS SUMMARY | 2023-10-05 17:08 | XMS_ITS | Encounter Summary ---
Author Organization [facility] Address [facility] [place] [address] Care Team Providers Care Smeller Name Role Phone Polo Pearce Primary Care Provider [phone] Reason for Visit * Reason Onset Date Comments Results 08/17/2022 Encounter Details Date Type Department Care Team (Late st Contact Info) Description 08/17/2022 Telephone Cardiology at [address] [address] Jaspreet Kinsey MD [facility] [place] [address] Results Social History Tobacco Use Types Packs/Day [...] Tech Visit Vascular Lab at [place] [phone] [place] 10/08/2023 9:30 AM EDT Office Visit V[place] [address]-[address] MD [facility] [place] [address] 10/21/2023 10:30 AM EDT Appointment Nuclear Medicine at [place] [phone] Mary Reyes [facility] [place] [address] 10/21/2023 11:30 AM EDT Appointment [place] [address]-1000 Mary Reyes [facility] [place] [address] 10/21/2023 12:30 PM EDT Appointment [place] [address]-1000 Mary Reyes [facility] [place] [address] 10/21/2023 1:30 PM EDT Appointment Nuclear Medicine at [place] [phone] [place] [address] 10/21/2023 2:30 PM EDT Appoint[place] [address] [place] [address] 10/26/2023 4:00 PM EDT Office Visit Cardiology at [address] [address] Jaspreet Kinsey MD [facility] [place] [address] 10/28/2023 9:00 AM EDT Office [place] [address] 10/29/2023 10:00 AM EDT Clinical [place] [address] 10/29/2023 10:15 AM EDT Procedure [place] [address] 11/01/2023 5:00 PM EDT Office Visit [place] [address] Selene Browning, PhD [facility] [place] [address] 11/22/2023 4:40 PM EDT Office Visit Cardiology at [address] [address] Porsha Mcdaniels MD [facility] [place] [address] 12/13/2023 10:00 AM EDT Clinical Support [place] [address]-[address] [facility] [place] [address] documented as of this encounter Visit Diagnoses Not on filedocumented in this encounter Care Teams Smeller Relationship Specialty Start Date End Date Polo Pearce PA [address] [place] [address] PCP - General Internal Medicine 06/09/21 documented as of this encounter
--- OUTSIDE RECORDS SUMMARY | 2023-10-05 17:08 | XMS_ITS | Encounter Summary ---
Author Organization [facility] [place] [address] Care Team Providers Care Solderer Assembly Repair Name Role Phone Polo Pearce Primary Care Provider [phone] Encounter Details Date Type Department Care Team (Late st Contact Info) Description 03/10/2022 Telephone Cardiology at [address] [address] Maegan Mike APRN [facility] [place] [address] Social History Tobacco Use Types Packs/Day Years [...] Referring Provider: Otis Rubi APRN Patient Location: [facility] ED Past Medical History: Type II non-STEMI in October 2021, cardiac cath with normal coronary arteries in October 2019 AVNRT, 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 She has [...] the patient condition. Maegan Mike APRN Pager [phone] 03/10/2022 documented in this encounter Plan of Treatment Upcoming Encounters Date Type Department Care Team (Late st Contact Info) Description 10/08/2023 8:30 AM EDT Tech [place] [phone] [place] 10/08/2023 9:30 AM EDT Office [place] [address] MD [facility] [place] [address] 10/21/2023 10:30 AM EDT Appointment [place] [address]-1000 Mary Reyes VICE PRESIDENT [employer] [facility] [place] [address] 10/21/2023 11:30 AM EDT Appointment [place] [address]-1000 Mary Reyes VICE PRESIDENT [employer] [facility] [place] [address] 10/21/2023 12:30 PM EDT Appointment [place] [address] Mary Reyes VICE PRESIDENT [place] [place] [address] 10/21/2023 1:30 PM EDT Appointment [place] [address] Mary Reyes VICE [employer] [place] [place] [address] 10/21/2023 2:30 PM EDT Appointment [place] [address] [place] [address] 10/26/2023 4:00 PM EDT Office Visit Cardiology at [address] [phone] Jaspreet Kinsey MD [facility] [place] [address] 10/28/2023 9:00 AM EDT Office [place] [address] 10/29/2023 10:00 AM EDT Clinical [place] [address] 10/29/2023 10:15 AM EDT Procedure [place] [address] 11/01/2023 5:00 PM EDT Office [place] [address] Selene Browning, PhD [facility] [place] [address] 11/22/2023 4:40 PM EDT Office Visit Cardiology at [address] [phone] Porsha Mcdaniels MD [facility] [place] [address] 12/13/2023 10:00 AM EDT Clinical [place] [address]656[address] [facility] [place] [address] documented as of this encounter Visit Diagnoses Not on filedocumented in this encounter Care Teams Solderer Assembly Repair Relationship Specialty Start Date End Date Polo Pearce PA Sb MOTT [address] [place] [address] PCP - General Internal Medicine 06/09/21 documented as of this encounter
--- OUTSIDE RECORDS SUMMARY | 2023-10-05 17:08 | XMS_ITS | Encounter Summary ---
Author Organization [facility] Address [facility] [place] [address] Care Team Providers Care Spindle Repairer Name Role Phone Polo Pearce Primary Care Provider [phone] Encounter Details Date Type Department Care Team (Late st Contact Info) Description 07/07/2022 Telephone Cardiology at [address] [place] [address] Jaspreet Kinsey MD [facility] [place] [address] Social History Tobacco Use Types Packs/Day Years [...] AM EDT Tech Visit Vascular Lab at [place] [phone] [place] 10/08/2023 9:30 AM EDT Office Visit Vascular Surgery at [place] [phone] MD [facility] [place] [address] 10/21/2023 10:30 AM EDT Appointment [place] [address] [place] [address] 10/21/2023 11:30 AM EDT Appointment Nuclear Medicine at [place] [phone] [place] [address] 10/21/2023 12:30 PM EDT Appointment Nuclear Medicine at [place] [phone] [place] [address] 10/21/2023 1:30 PM EDT Appointment [place] [address]156-[address] [place] [address] 10/21/2023 2:30 PM EDT Appointment [place] [address] Mary Reyes APRN [facility] [place] [address] 10/26/2023 4:00 PM EDT Office Visit Cardiology at [address] [phone] Jaspreet Kinsey MD [facility] [place] [address] 10/28/2023 9:00 AM EDT Office [place] [address] 10/29/2023 10:00 AM EDT Clinical [place] [address] 10/29/2023 10:15 AM EDT Procedure [place] [address] 11/01/2023 5:00 PM EDT Office [place] [phone] Selene Browning, PhD [facility] [place] [address] 11/22/2023 4:40 PM EDT Office Visit Cardiology at [address] [address] Porsha Mcdaniels MD [facility] [place] [address] 12/13/2023 10:00 AM EDT Clinical [place] [phone] [facility] [place] [place] [address] documented as of this encounter Visit Diagnoses Not on filedocumented in this encounter Care Teams Spindle Repairer Relationship Specialty Start Date End Date Polo Pearce PA [address] [place] [address] PCP - General Internal Medicine 06/09/21 documented as of this encounter
--- OUTSIDE RECORDS SUMMARY | 2023-10-05 17:08 | XMS_ITS | Encounter Summary ---
Author Organization [facility] Address [facility] [place] [address] Care Team Providers Care Senior Licensing Manager Name Role Phone Polo Pearce Primary Care Provider [phone] Encounter Details Date Type Department Care Team (Late st Contact Info) Description 04/16/2022 Refill Cardiology at [address] [place] [address] Jaspreet Kinsey MD [facility] [place] [address] Social History Tobacco Use Types Packs/Day Years [...] ??Order for CCTA placed by Dr. Kinsey. [facility] will contact you for scheduling. * [...] her tocontinue on this. Phone # is [phone] documented in this encounter Plan of Treatment Upcoming Encounters Date Type Department Care Team (Late st Contact Info) Description 10/08/2023 8:30 AM EDT Tech [place] [phone] [place] 10/08/2023 9:30 AM EDT Office Visit [place] [address]-[address] MD [facility] [place] [address] 10/21/2023 10:30 AM EDT Appointment [place] [address] Mary Reyes APRN [facility] [place] [address] 10/21/2023 11:30 AM EDT Appointment [place] [address]-1000 Mary Reyes INTERNATIONAL FIRST OFFICER [facility] [place] [address] 10/21/2023 12:30 PM EDT Appointment Nuclear [place] [address] Mary Reyes INTERNATIONAL FIRST OFFICER [facility] [place] [address] 10/21/2023 1:30 PM EDT Appointment [place] [address]-1000 Mary Reyes APRN [facility] [place] [address] 10/21/2023 2:30 PM EDT Appointment [place] [address]-1000 [place] [address] 10/26/2023 4:00 PM EDT Office Visit Cardiology at [address] [address] Jaspreet Kinsey MD [facility] [place] [address] 10/28/2023 9:00 AM EDT Office [place] [address] 10/29/2023 10:00 AM EDT Clinical [place] [address] 10/29/2023 10:15 AM EDT Procedure [place] [address] 11/01/2023 5:00 PM EDT Office Visit [place] [address] Selene Browning, PhD [facility] [place] [address] 11/22/2023 4:40 PM EDT Office Visit Cardiology at [address] [phone] Porsha Mcdaniels MD [facility] [place] [address] 12/13/2023 10:00 AM EDT Clinical Support [place] [address]-[address] [facility] [place] [address] documented as of this encounter Visit Diagnoses Diagnosis Chronic heart failure with preserved ejection fraction Chest pain, unspecified type documented in this encounter Care Teams Senior Licensing Manager Relationship Specialty Start Date End Date Polo Pearce PA S[address] [place] [address] PCP - General Internal Medicine 06/09/21 documented as of this encounter
--- OUTSIDE RECORDS SUMMARY | 2023-10-05 17:08 | XMS_ITS | Encounter Summary ---
Author Organization Replaced By [facility] [place] [address] Care Team Providers Care Chainstitch Sewing Machine Operator Name Role Phone Polo Pearce Primary Care Provider [phone] Encounter Details Date Type Department Care Team (Late st Contact Info) Description 09/26/2022 [place] [address] Paulo Ramachandran Jr., MD [facility] [place] [address] Social History Tobacco Use Types Packs/Day Years [...] vasospasm rather than a true Type I MO, however, given degree of troponin rise and [...] AM EDT Tech [place] [phone] Channing [place] 10/08/2023 9:30 AM EDT Office [place] [address] MD [facility] [place] [address] 10/21/2023 10:30 AM EDT Appointment Nuclear Medicine at [place] [phone] Mary Reyes APRN [facility] [place] [address] 10/21/2023 11:30 AM EDT Appointment [place] [address] [facility] [address] 10/21/2023 12:30 PM EDT Appointment [place] [address] [facility] [address] 10/21/2023 1:30 PM EDT Appointment [place] [address] [place] [address] 10/21/2023 2:30 PM EDT Appointment [place] [address] [place] [address] 10/26/2023 4:00 PM EDT Office Visit Cardiology at [address] [phone] Jaspreet Kinsey MD [facility] [place] [address] 10/28/2023 9:00 AM EDT Office [place] [address] 10/29/2023 10:00 AM EDT Clinical [place] [address] 10/29/2023 10:15 AM EDT Procedure [place] [address] 11/01/2023 5:00 PM EDT Office Visit Gastroenterology at [place] [phone] Selene Browning, PhD [facility] [place] [address] 11/22/2023 4:40 PM EDT Office [place] [address] Porsha Mcdaniels MD [facility] [place] [address] 12/13/2023 10:00 AM EDT Clinical [place] [address] Lucero Romero, ALVA [facility] [place] [address] documented as of this encounter Visit Diagnoses Not on filedocumented in this encounter Care Teams Chainstitch Sewing Machine Operator Relationship Specialty Start Date End Date Polo Pearce PA [address] [place] [address] PCP - General Internal Medicine 06/09/21 documented as of this encounter
--- OUTSIDE RECORDS SUMMARY | 2023-10-05 17:08 | XMS_ITS | Encounter Summary ---
Author Organization [facility] Address [facility] [place] [address] Care Team Providers Care Timber Cutter Name Role Phone Polo Pearce Primary Care Provider [phone] Encounter Details Date Type Department Care Team (Late st Contact Info) Description 03/17/2022 Telephone Cardiology at [address] [place] [address] Jaspreet Kinsey MD [facility] [place] [address] Social History Tobacco Use Types Packs/Day Years [...] the new one. Please call her @ [phone]. documented in this encounter Plan of Treatment Upcoming Encounters Date Type Department Care Team (Late st Contact Info) Description 10/08/2023 8:30 AM EDT Tech [place] [phone] Chaninng Escobedo [place] 10/08/2023 9:30 AM EDT Office Visit [place] [phone] MD [facility] [place] [address] 10/21/2023 10:30 AM EDT Appointment [place] [phone] [place] [address] 10/21/2023 11:30 AM EDT Appointment [place] [phone] Mary Reyes [facility] [place] [address] 10/21/2023 12:30 PM EDT Appointment [place] [phone] [place] [address] 10/21/2023 1:30 PM EDT Appointment [place] [address] Mary Reyes CRATE BUILDER [facility] [place] [address] 10/21/2023 2:30 PM EDT Appointment [place] [phone] Mary Reyes APRN [facility] [place] [address] 10/26/2023 4:00 PM EDT Office Visit Cardiology at [address] [phone] Jaspreet Kinsey MD [facility] [place] [address] 10/28/2023 9:00 AM EDT Office [place] [address] 10/29/2023 10:00 AM EDT Clinical [place] [address] 10/29/2023 10:15 AM EDT Procedure [place] [address] 11/01/2023 5:00 PM EDT Office [place] [phone] Selene Browning, PhD [facility] [place] [address] 11/22/2023 4:40 PM EDT Office Visit Cardiology at [address] [phone] Porsha Mcdaniels MD [facility] [place] [address] 12/13/2023 10:00 AM EDT Clinical Support [place] [address] Lucero Romero, ALVA [facility] [place] [address] documented as of this encounter Visit Diagnoses Not on filedocumented in this encounter Care Teams Timber Cutter Relationship Specialty Start Date End Date Polo Pearce PA [address] [place] [address] PCP - General Internal Medicine 06/09/21 documented as of this encounter
--- OUTSIDE RECORDS SUMMARY | 2023-10-05 17:08 | XMS_ITS | Encounter Summary ---
Author Organization [facility] Address [facility] [place] [address] Care Team Providers Care Life Teacher Name Role Phone Polo Pearce Primary Care Provider [phone] Encounter Details Date Type Department Care Team (Late st Contact Info) Description 07/28/2022 Telephone Cardiology at [address] [place] [address] Jaspreet Kinsey MD [facility] [place] [address] Social History Tobacco Use Types Packs/Day Years [...] and would like a call back @ [phone] * Telephone Encounter - Nilda Mayes, RN - 07/28/2022 10:57 AM EDT Indira says she is being discharged to home from [facility] today. Home diuretic therapy isn't working well. When I'm in the hospital, it really comes down again. She asks if the fluid pill needs to be changed. Plan: to request discharge records from [facility] when available. * Telephone Encounter - Brenda Callahan - 07/28/2022 10:44 AM EDT PT called she was advised to call this office. She has a few questions. Prior notes in chart she has been at [facility]. She would like a call back from a nurse please. [phone] documented in this encounter Plan of Treatment Upcoming Encounters Date Type Department Care Team (Late st Contact Info) Description 10/08/2023 8:30 AM EDT Tech [place] [phone] Channing [place] 10/08/2023 9:30 AM EDT Office Visit [place] [phone] MD [facility] [place] [address] 10/21/2023 10:30 AM EDT Appointment [place] [phone] Mary Reyes APRN [facility] [place] [address] 10/21/2023 11:30 AM EDT Appointment [place] [phone] [place] [address] 10/21/2023 12:30 PM EDT Appointment [place] [address] [place] [address] 10/21/2023 1:30 PM EDT Appointment [place] [address] [place] [address] 10/21/2023 2:30 PM EDT Appointment [place] [address] [place] [address] 10/26/2023 4:00 PM EDT Office Visit Cardiology at [address] [phone] Jaspreet Kinsey MD [facility] [place] [address] 10/28/2023 9:00 AM EDT Office [place] [address] 10/29/2023 10:00 AM EDT Clinical [place] [address] 10/29/2023 10:15 AM EDT Procedure [place] [address] 11/01/2023 5:00 PM EDT Office Visit Gastroenterology at [place] [phone] Selene Browning, PhD [facility] [place] [address] 11/22/2023 4:40 PM EDT Office Visit Cardiology [place] [address] Porsha Mcdaniels MD [facility] [place] [address] 12/13/2023 10:00 AM EDT Clinical Support [place] [phone] Lucero Romero, ALVA [facility] [place] [address] documented as of this encounter Visit Diagnoses Not on filedocumented in this encounter Care Teams Life Teacher Relationship Specialty Start Date End Date Polo Pearce PA [address] [place] [address] PCP - General Internal Medicine 06/09/21 documented as of this encounter
--- OUTSIDE RECORDS SUMMARY | 2023-10-05 17:08 | XMS_ITS | Encounter Summary ---
Author Organization [facility] [place] [address] Care Team Providers Care Reinforcing Steel Placer Name Role Phone Polo Pearce Primary Care Provider [phone] Encounter Details Date Type Department Care Team (Late st Contact Info) Description 08/31/2022 External [place] [address] Social History Tobacco Use Types Packs/Day Years [...] AM EDT Tech Visit [place] [phone] Channing Escobedo [place] 10/08/2023 9:30 AM EDT Office [place] [phone] MD [facility] [place] [place] [address] 10/21/2023 10:30 AM EDT Appointment [place] [address] Mary Reyes [facility] [place] [address] 10/21/2023 11:30 AM EDT Appointment Nuclear Medicine at [place] [phone] Mary Reyes [facility] [address] 10/21/2023 12:30 PM EDT Appointment Nuclear Medicine at [place] [phone] Mary Reyes [facility] [address] 10/21/2023 1:30 PM EDT Appointment [place] [address] Mary Reyes [facility] [place] [place] [address] 10/21/2023 2:30 PM EDT Appointment [place] [address] Mary Reyes [facility] [place] [place] [address] 10/26/2023 4:00 PM EDT Office Visit Cardiology at [address] [phone] Jaspreet Kinsey MD [facility] [place] [address] 10/28/2023 9:00 AM EDT Office Visit [place] [address] 10/29/2023 10:00 AM EDT Clinical Support [place] [address] 10/29/2023 10:15 AM EDT Procedure visit [place] [address] 11/01/2023 5:00 PM EDT Office Visit Gastroenterology at [place] [phone] Selene Browning, PhD [facility] [place] [address] 11/22/2023 4:40 PM EDT Office Visit Cardiology at [place] [phone] Porsha Mcdaniels MD [facility] [place] [address] 12/13/2023 10:00 AM EDT Clinical Support [place] [address] Lucero Romero, AL[facility] [place] [address] documented as of this encounter Procedures Procedure Name Priority Date/Time Associated Diagnosis Comments ECG SCAN Routine 08/31/2022 2:00 PM EDT documented in this encounter Results * Scan Doc: ECG (08/31/2022 2:00 PM EDT) Historical Provider MD LONNIE PRAKASH SCAN EX T ORDR/RSLT documented in this encounter Visit Diagnoses Not on filedocumented in this encounter Care Teams Reinforcing Steel Placer Relationship Specialty Start Date End Date Polo Pearce PA [address] [place] [address] PCP - General Internal Medicine 06/09/21 documented as of this encounter
--- OUTSIDE RECORDS SUMMARY | 2023-10-05 17:08 | XMS_ITS | Encounter Summary ---
Author Organization [facility] [place] [address] Care Team Providers Care Waredresser Name Role Phone Polo Pearce Primary Care Provider [phone] Encounter Details Date Type Department Care Team (Late st Contact Info) Description 07/29/2022 9:50 PM EDT Ancillary Procedure [place] [phone] Marcia Kamara MD [facility] [place] [address] Social History Tobacco Use Types Packs/Day Years [...] AM EDT Tech [place] [address] [place] 10/08/2023 9:30 AM EDT Office Visit [place] [address] MD [facility] [place] [address] 10/21/2023 10:30 AM EDT Appointment Nuclear Medicine at [place] [phone] Mary Reyes [facility] [place] [address] 10/21/2023 11:30 AM EDT Appointment Nuclear Medicine at [place] [phone] Mary Reyes [facility] [place] [address] 10/21/2023 12:30 PM EDT Appointment [place] [address] Mary Reyes [facility] [place] [address] 10/21/2023 1:30 PM EDT Appointment [place] [address] Mary Reyes [facility] [place] [address] 10/21/2023 2:30 PM EDT Appointment [place] [phone] Mary Reyes [facility] [place] [address] 10/26/2023 4:00 PM EDT Office Visit Cardiology at [address] [phone] Jaspreet Kinsey MD [facility] [place] [address] 10/28/2023 9:00 AM EDT Office [place] [address] 10/29/2023 10:00 AM EDT Clinical [place] [address] 10/29/2023 10:15 AM EDT Procedure [place] [address] 11/01/2023 5:00 PM EDT Office Visit [place] [phone] Selene Browning, PhD [facility] [place] [address] 11/22/2023 4:40 PM EDT Office Visit Cardiology at [address] [phone] Porsha Mcdaniels MD [facility] [place] [address] 12/13/2023 10:00 AM EDT Clinical Support [place] [phone] Lucero Romero, AL[facility] [place] [address] documented as of this encounter Procedures Procedure Name Priority Date/Time Associated Diagnosis Comments FILM LIBRARY STORAGE ONLY CT HEAD AND SPINE Routine 07/29/2022 9:45 PM EDT documented in this encounter Results * Film Library- Storage Only CT Head And Spine (07/29/2022 9:45 PM EDT) Narrative [facility] - 07/29/2022 9:45 PM EDT This exam is auto-finalizing. It's purpose is for storage only. Marcia Kamara MD IMG FILM LIBRARY ORD ERABLES [place] documented in this encounter Visit Diagnoses Not on filedocumented in this encounter Care Teams Waredresser Relationship Specialty Start Date End Date Polo Pearce PA [address] [place] [address] PCP - General Internal Medicine 06/09/21 documented as of this encounter
--- OUTSIDE RECORDS SUMMARY | 2023-10-05 17:08 | XMS_ITS | Encounter Summary ---
[place] [address] Care Team Providers Care Youth Care Professional Name Role Phone Polo Pearce Primary Care Provider [phone] Reason for Visit * Auth/Cert (Routine) Specialty Diagnoses / Procedures Referred By Jayant harris Referred To Contact Diagnoses NSTEMI (non-ST elevated myocardial infarction) NSTEMI Procedures EMERGENCY IPI Susannah Gómez MD [facility] [place] [address] [facility] Referral ID Status Reason Start Date Expiration Date Visits Re quested Visits Authorized [id number] 1 1 Encounter Details Date Type Department Care Team (Latest Contact Info) Description 09/26/2022 3:42 PM EDT - 09/28/2022 5:02 PM EDT Hospital Encounter Heart and Vascular Unit Level 4 [place] [address] Susannah Gómez MD [facility] [place] [address] Non-ST elevation myocardial infarction (NSTEMI) Discharge Disposition: [...] to the point that she presented to [facility] at around 630 or 7 AM this morning. At OSH: Patient presented with soft blood pressures of 90s/50s which improved with fluids. Initial troponins above 800. EKG with sinus bradycardia with inferolateral ST segment depressions, possibly increased from prior. OSH provider loaded full dose aspirin and started therapeutic Lovenox prior to transfer. On presentation to [facility] patient notes some constant chest pain that is approx 5/10 in severity centered over left chest. She has no shortness of breath or PND. On a regular day patient could walk about 30 feet on a flat surface before becoming shortness of breath. 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 She is under a considerable amount of [...] days. Refills: 0 fluticasone propionate 50 mcg/actuation Cleghorn, Suspension Commonly known as: Flonase 1 spray [...] 4:00 PM Jaspreet Kinsey MD Cardiology at [place] Arrive at: [facility] [address] [phone] 10/20/2022 8:00 AM Florencia Callahan [place] Vascular Lab at [facility] Arrive at: [facility]V [phone] 10/20/2022 9:00 AM Umberto Abbott MD Vascular Surgery at [facility] Arrive at: [facility] [phone] Provider Contact Information: JOCY Franco [facility] [address] Discharge References/Attachments: Discharge References/Attachments None documented in [...] October 08, 2022 at 4:00 pm in [place]). MEDICATION INSTRUCTIONS: At discharge, START - amlodipine [...] as needed. fluticasone propionate (FLONASE) 50 mcg/actuation Cleghorn, Suspension 1 spray by Each Nare route [...] EDT CARDIOLOGY S2 Daily Progress Note Pager [phone] Admit Date: 09/26/2022 Encounter Date: September 27, [...] 29-35-30. Chest pain improved en route to [facility], some improvement with nitro. Overnight: No acute [...] to the point that she presented to [facility] at around 630 or 7 AM this morning. At OSH: Patient presented with soft blood pressures of 90s/50s which improved with fluids. Initial troponins above 800. EKG with sinus bradycardia with inferolateral ST segment depressions, possibly increased from prior. OSH provider loaded full dose aspirin and started therapeutic Lovenox prior to transfer. On presentation to [facility] patient notes some constant chest pain that is approx 5/10 in severity centered over left chest. She has no shortness of breath or PND. On a regular day patient could walk about 30 feet on a flat surface before becoming shortness of breath. 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 She is under a considerable amount of [...] 30 DAYS fluticasone propionate (FLONASE) 50 mcg/actuation Cleghorn, Suspension 1 spray, Each Nare, DAILY gabapentin [...] Holman MD Internal Medicine, PGY-1 Cardiology M1-S1, #[id number] Cardiology M1-S2, #[id number] 09/26/2022, 6:07 PM Cardiology Staff Addendum Loida [...] COVID test: Lab Results Component Value Date [id number] Not Detected 06/13/2021 Present on Admission: NSTEMI (non-ST elevated myocardial infarction) Hospitalizations Within the Past 30 Days: no previous admission in last 30 days Patient receiving hospital care under Inpatient status. Admission order reviewed. Health/Prescription Coverage: Primary Insurance: [employer] [place] Payor: [employer]AO [employer]un [facility] [place] / Plan: [place] EXCHANGE / Product Type: *No Product type* / Secondary Insurance: N/A ; Prescription Coverage: Preferred Pharmacy: [facility] - [place], [place] - [address] [facility] [address] [facility] [address] [place], [place] - [address] [facility] [address] [facility] [address] [facility] [address] Advance Care Planning: Attempt Cardiopulmonary Resuscitation - Inpatient <no information> - Current Functional Ability: Independent Functional Status Prior to Admission: Home Environment: . Current Living Arrangements: home/apartment/condo. Accessibility Concerns: . Current DME: [address] [facility] [address] Social & Family Supports: All names listed [...] private vehicle when medically ready. Registered Nurse Campaign Marketing Specialist / Technical Report Writer will continue to follow patient???s progress and remain available if situation changes for coordination of care, psychosocial support and/or discharge planning. Office of Care Management Fab GALARZA, RN Case Management [phone] * Plan of Care - Antonio Swann [...] EDT Tech Visit [place] [address] Channing Escobedo [place] 10/08/2023 9:30 AM EDT Office Visit Vascular Surgery at [place] [phone] Thiago Wya MD [facility] [place] [address] 10/21/2023 10:30 AM EDT Appointment Nuclear Medicine at [place] [phone] [place] [address] 10/21/2023 11:30 AM EDT Appointment Nuclear Medicine at [place] [phone] [place] [address] 10/21/2023 12:30 PM EDT Appointment [place] [address] [place] [address] 10/21/2023 1:30 PM EDT Appointment [place] [address] [place] [address] 10/21/2023 2:30 PM EDT Appointment [place] [address] CalvMary mazariegos APRN [facility] [place] [address] 10/26/2023 4:00 PM EDT Office Visit Cardiology at [address] [phone] Jaspreet Kinsey MD [facility] [place] [address] 10/28/2023 9:00 AM EDT Office [place] [address] 10/29/2023 10:00 AM EDT Clinical [place] [address] 10/29/2023 10:15 AM EDT Procedure [place] [address] 11/01/2023 5:00 PM EDT Office Visit [place] [phone] Selene Browning, PhD [facility] [place] [address] 11/22/2023 4:40 PM EDT Office Visit Cardiology at [address] [phone] Porsha Mcdaniels MD [facility] [place] [address] 12/13/2023 10:00 AM EDT Clinical Support [place] [phone] [facility] [place] [place] [address] documented as of this encounter Procedures Procedure [...] EDT) pH [place] 7.32 7.32 - 7.42 [facility] pCO2 [place] 45 41 - [address] [facility] pO2 [place] 30 25 - [address] [facility] HCO3 [place] 22.8 mmol/L [facility] BE [place] -3.3 mmol/L [facility] Hgb Blood Gas 15.2 11.7 - 15.5 g/dL [facility] O2HB [place] 52.4 % [facility] COHB [place] 1.0 % [facility] Comment: Nonsmokers: 0.5-1.5% COHB Smokers: Variable, but usually less than 10% Toxic: 20-30% COHB Lethal: Greater than 60% COHB METHB [place] 0.3 <=1.5 % [facility] Na Whole Blood 139 135 - 145 mmol/L [facility] K Whole Blood 4.6 3.5 - 5.0 mmol/L [facility] Comment: Please note: Patients with WBC >100,000 may have falsely elevated Potassium levels. Contact the Clinical Chemistry Laboratory if there are any questions. ICa Whole Blood 1.23 1.15 - 1.33 mmol/L [facility] Comment: Note: ??Total bilirubin higher than 20 mg/dL may lead to falsely low ionized calcium. CL Whole Blood 104 98 - 107 mmol/L [facility] Gluc Whole Bld 87 65 - 199 mg/dL [facility] Comment:Diabetes: >=200 mg/d L plus symptoms Lactate WB 1.3 0.5 - 2.2 mmol/L [facility] BGas Source Venous [facility] Blood Venous Draw / Unknown 09/28/2022 3:39 PM EDT 09/28/2022 3:50 PM EDT Narrative Resulting Agency Comment Spec In Lab Ciro Lovell MD CHEMISTRY ORDERABLES [facility] [place] [address] * EKG 12 Lead (09/28/2022 1:58 PM EDT) Ventricular rate 57 BPM MUSE SYSTEM Atrial Rate 57 BPM MUSE SYSTEM P-R Interval 180 ms MUSE SYSTEM QRS Duration 86 ms MUSE SYSTEM Q-T Interval 414 ms MUSE SYSTEM QTC Calculated (Bezet) 402 ms MUSE SYSTEM Calculated P Bend 40 degrees MUSE SYSTEM Calculated R Bend 67 degrees MUSE SYSTEM Calculated T Bend -56 degrees MUSE SYSTEM INTERPRETATION Sinus bradycardia [...] Gómez MD ECG ORDERABLES Performing Organization Address City/[facility] Co de Phone [...] account director that requested your imaging first. Susannah Gómez MD IMG CT ORDERABLES * (ABNORMAL) Troponin (09/28/2022 6:56 AM EDT) Troponin-T HS 21(H) <=14 ng/L [facility] Comment: This patient's troponin T [...] troponin value can be found in the [facility] Laboratory Test Catalog Troponin - [facility] Laboratory Test Catalog Reference: Fourth Selby Definition of Myocardial Infarction. Journal of the [place] College [employer] 2018;72:0008-0117 Blood 09/28/2022 6:56 AM EDT 09/28/2022 7:01 AM EDT Narrative Resulting Agency Comment Spec In Lab Susannah Gómez MD CHEMISTRY ORDERABLES [facility] [place] [address] * Differential, Automated (09/28/2022 3:49 AM EDT) Neutrophils % 45.9 % [facility] Neutr Abs (ANC) 2.92 1.70 - 6.10 x10(3)/[facility] Lymphocytes % 40.5 % [facility] Lymphocytes Abs 2.6 0.9 - 3.2 x10(3)/[facility] Monocytes % 8.9 % [facility] Monocyte Abs 0.6 0.3 - 0.9 x10(3)/[facility] Eosinophils % 3.3 % [facility] Eosinophils Abs 0.2 0.0 - 0.4 x10(3)/[facility] Basophils % 1.1 % [facility] Basophils Abs 0.1 0.0 - 0.1 x10(3)/[facility] Immature Gran % 0.30 % [facility] Comment: Immature granulocytes(IG's)percentage and absolute count will include metamyelocytes, myelocytes, and promyelocytes. Blood smears from CBCs yielding IG's will be scanned manually for concordance. If this scan disagrees with the automated IG or if promyelocytes are noted, a manual differential will be performed. Shonda Gran Abs 0.02 0.00 - 0.04 x10(3)/[facility] Blood 09/28/2022 3:49 AM EDT 09/28/2022 4:11 AM EDT Narrative Resulting Agency Comment Spec In Lab Vimal Holman MD HEMATOLOGY ORDERABLE S [facility] [place] [address] * (ABNORMAL) Hemogram (09/28/2022 3:49 AM EDT) [facility] WBC 6.4 4.0 - 9.5 x10(3)/[facility] RBC 4.37 4.00 - 5.21 x10(6)/[facility] Hemoglobin 13.7 11.7 - 15.5 g/dL [facility] Hematocrit 41.6 35.7 - 45.8 % [facility] MCV 95.2(H) 82.6 - 94.4 [facility] MCH 31.4 27.1 - 32.[address] [facility] MCHC 32.9 31.7 - 35.0 g/dL [facility] Platelets 224 145 - 357 x10(3)/[facility] RDWSD 43.1 37.0 - 46.0 [facility] RDWCV 12.3 11.5 - 14.1 % [facility] MPV 11.3 7.6 - 12.9 [facility] nRBC % Auto 0.0 % [facility] nRBC Abs Auto 0.000 0.000 - 0.000 x10(3)/[facility] Blood 09/28/2022 3:49 AM EDT 09/28/2022 4:11 AM EDT Narrative Resulting Agency Comment Spec In Lab Vimal Holman MD HEMATOLOGY ORDERABLE S [facility] [place] [address] * (ABNORMAL) Troponin (09/28/2022 3:49 AM EDT) [facility] Troponin-T HS 25(H) <=14 ng/L [facility] Comment: This patient's troponin T [...] troponin value can be found in the [facility] Laboratory Test Catalog Troponin - [facility] Laboratory Test Catalog Reference: Fourth Selby Definition of Myocardial Infarction. Journal of the [place] College of Cardiology 2018;72:9286-0844 Blood 09/28/2022 3:49 AM EDT 09/28/2022 4:11 AM EDT Narrative Resulting Agency Comment Spec In Lab Susannah Gómez MD CHEMISTRY ORDERABLES Performing Organization Address City/State/[facility] Co de Phone Number [facility] [place] [address] * (ABNORMAL) Basic Metabolic Panel (non-fasting) (09/28/2022 3:49 AM EDT) [facility] Glucose Lvl 97 65 - 199 mg/dL [facility] Comment:Diabetes: >=200 mg/d L plus symptoms BUN 26(H) 8 - 18 mg/dL [facility] Creatinine 1.01 0.70 - 1.20 mg/dL [facility] Sodium 137 135 - 145 mmol/L [facility] Potassium 4.4 3.5 - 5.0 mmol/L [facility] Comment: Please note: ??Patients with WBC >100,000 may have falsely elevated Potassium levels. ??For accurate Potassium quantification in these patients send serum separator tube (gold top) for subsequent determinations. ??Contact the Clinical Chemistry Laboratory if there are any questions. Chloride 108(H) 98 - 107 mmol/L [facility] CO2 18(L) 22 - 31 mmol/L [facility] Anion Gap 11 5 - 15 mmol/L [facility] Calcium 9.0 8.5 - 10.5 mg/dL [facility] Estimated GFR 67 >=60 mL/min/1. 73 m?? [facility] [...] In Lab Susannah Gómez MD CHEMISTRY ORDERABLES [facility] [place] [address] * XR Chest One View (09/28/2022 3:37 [...] account director that requested your imaging first. Susannah Gómez MD IMG DX ORDERABLES * EKG 12 Lead (09/28/2022 3:11 AM EDT) Ventricular rate 45 BPM MUSE SYSTEM Atrial Rate 45 BPM MUSE SYSTEM P-R Interval 196 ms MUSE SYSTEM QRS Duration 90 ms MUSE SYSTEM Q-T Interval 554 ms MUSE SYSTEM QTC Calculated (Bezet) 479 ms MUSE SYSTEM Calculated P Bend 33 degrees MUSE SYSTEM Calculated R Bend 28 degrees MUSE SYSTEM Calculated T Bend 58 degrees MUSE SYSTEM INTERPRETATION Sinus bradycardia Nonspecific ST and T wave abnormality Abnormal ECG When compared with ECG of 26-SEP-2022 17:33, QT has lengthened Confirmed by fellow Vaishnavi Pratt ([id number]) on 09/28/2022 9:30:13 AM Confirmed by MD [place], Gus ([id number]) on 09/28/2022 3:06:42 PM MUSE SYSTEM 09/28/2022 3:11 AM EDT 09/28/2022 3:06 PM EDT Susannah Gómez MD ECG ORDERABLES MUSE SYSTEM * ECHO COMPLETE W CONTRAST (09/27/2022 9:42 AM EDT) Pathologist [facility] EF 60 HEARTLAB SYSTEM Anatomical Region Laterality Modality Cardiac Other 09/27/2022 9:04 AM EDT Narrative 09/27/2022 12:04 PM EDT ? Echocardiogram Report Name: LOIDA MADRIGAL ? Study Date: 09/27/2022 09:04 AMBP: 92/56 mmHg ? Patient Location: : 1970 ? Height: 163 cm ? Account: [id number] Age: 52 yrs ? Weight: 102 kg Gender: Female ?BSA: 2.1 m2 Ordering Physician: SUSANNAH GÓMEZ Referring Physician: SUSANNAH GÓMEZ Performed By: HAIM Arnold Reason For Study: NSTEMI Exam Location: [facility]. Interpretation Summary - Left [...] 12/31/21, there is no significant change. Procedure Complete-31088. Image enhancement Optison was used for left [...] Location: : 1970 Height: 163 cm Account: [id number] Age: 52 yrs Weight: 102 kg Gender: Female BSA: 2.1 m2 Ordering Physician: SUSANNAH GÓMEZ Referring Physician: SUSANNAH GÓMEZ Performed By: HAIM Arnold Reason For Study: NSTEMI Exam Location: [facility]. Interpretation Summary - Left [...] on 12/31/21, there is nosignificant change. Procedure Complete-[id number]. Image enhancement Optison was used for left [...] 3:07 AM EDT) Neutrophils % 49.4 % [facility] Neutr Abs (ANC) 3.02 1.70 - 6.10 x10(3)/[facility] Lymphocytes % 36.4 % [facility] Lymphocytes Abs 2.2 0.9 - 3.2 x10(3)/[facility] Monocytes % 10.3 % [facility] Monocyte Abs 0.6 0.3 - 0.9 x10(3)/[facility] Eosinophils % 3.0 % [facility] Eosinophils Abs 0.2 0.0 - 0.4 x10(3)/[facility] Basophils % 0.7 % [facility] Basophils Abs 0.0 0.0 - 0.1 x10(3)/[facility] Immature Gran % 0.20 % [facility] Comment: Immature granulocytes(IG's)percentage and absolute count will include metamyelocytes, myelocytes, and promyelocytes. Blood smears from CBCs yielding IG's will be scanned manually for concordance. If this scan disagrees with the automated IG or if promyelocytes are noted, a manual differential will be performed. Shonda Gran Abs 0.01 0.00 - 0.04 x10(3)/[facility] Blood 09/27/2022 3:07 AM EDT 09/27/2022 3:18 AM EDT Narrative Resulting Agency Comment Spec In Lab Vimal Holman MD HEMATOLOGY ORDERABLE S [facility] [place] [address] * (ABNORMAL) Hemogram (09/27/2022 3:07 AM EDT) WBC 6.1 4.0 - 9.5 x10(3)/[facility] RBC 4.20 4.00 - 5.21 x10(6)/[facility] Hemoglobin 13.3 11.7 - 15.5 g/dL [facility] Hematocrit 40.9 35.7 - 45.8 % [facility] MCV 97.4(H) 82.6 - 94.[address] [facility] MCH 31.7 27.1 - 32.[address] [facility] MCHC 32.5 31.7 - 35.0 g/dL [facility] Platelets 223 145 - 357 x10(3)/[facility] RDWSD 45.0 37.0 - 46.0 [facility] RDWCV 12.7 11.5 - 14.1 % [facility] MPV 10.5 7.6 - 12.[address] [facility] nRBC % Auto 0.0 % [facility] nRBC Abs Auto 0.000 0.000 - 0.000 x10(3)/mcL [facility] Blood 09/27/2022 3:07 AM EDT 09/27/2022 3:18 AM EDT Narrative Resulting Agency Comment Spec In Lab Vimal Holman MD HEMATOLOGY ORDERABLE S Performing Organization Address City/[facility]/ZIP Co de Phone Number [facility] [place] [address] * (ABNORMAL) Troponin (09/27/2022 3:07 AM EDT) Troponin-T HS 30(H) <=14 ng/L [facility] Comment: This patient's troponin T [...] troponin value can be found in the [facility] Laboratory Test Catalog Troponin - [facility] Laboratory Test Catalog Reference: Fourth Selby Definition of Myocardial Infarction. Journal of the [place] College of Cardiology 2018;72:0577-8955 Blood 09/27/2022 3:07 AM EDT 09/27/2022 3:18 AM EDT Narrative Resulting Agency Comment Spec In Lab Susannah Gómez MD CHEMISTRY ORDERABLES Performing Organization Address City/[facility]/ZIP Co de Phone Number [facility] [place] [address] * (ABNORMAL) Basic Metabolic Panel (non-fasting) (09/27/2022 3:07 AM EDT) Glucose Lvl 88 65 - 199 mg/dL [facility] [...] questions. Chloride 108(H) 98 - 107 mmol/L [facility] CO2 18(L) 22 - 31 mmol/L [facility] Anion Gap 12 5 - 15 mmol/L [facility] Calcium 8.9 8.5 - 10.5 mg/dL [facility] [...] In Lab Susannah Gómez MD CHEMISTRY ORDERABLES [facility] [place] [address] * Hemoglobin A1c (09/27/2022 3:07 AM EDT) [...] 1, S67-74 Est Avg Gluc 114 mg/dL [facility] Comment: eAG equivalents for HbA1c [...] into estimated average glucose values. ??Diabetes Care 2008:31(8):7969-9658. Blood 09/27/2022 3:07 AM EDT 09/27/2022 3:18 AM EDT Narrative Resulting Agency Comment Spec In Lab Susannah Gómez MD CHEMISTRY ORDERABLES [facility] [place] [address] * Lipid Panel (Reflex Direct LDL) (09/27/2022 3:07 AM EDT) Chol, Total 228 mg/dL [facility] Comment: Lower Risk: <200 mg/dL Average Risk: 200-239 mg/dL Higher Risk: >qf=441 mg/dL Triglycerides 221 mg/dL [facility] Comment: Average Risk/Lower Risk: <150 mg/dL Borderline High Risk: 150-199 mg/dL High Risk: 200-499 mg/dL Very High Risk: >tk=228 mg/dL HDL 33 mg/dL [facility] Comment: Males: ?? Higher Risk: <40 mg/dL Females: ?? Higher Risk: <50 mg/dL LDL Cholesterol 151 mg/dL [facility] Comment: Lowest Risk: <100 mg/dL Lower Risk: 100-129 mg/dL Borderline High Risk: 130-159 mg/dL High Risk: 160-189 mg/dL Very High Risk: >gc=742 mg/dL Chol/HDL Ratio 6.[address] [facility] Lipid Interpretation See Note [facility] Comment: Lipid management should be guided by a patient? s ASCVD risk, goals and preferences. ACC/AHA Guidelines recommend high intensity statin if clinical ASCVD or LDL greater than or equal to 190 mg/dL. http://tinyurl.com/QEV-AEE-Ghbejgbnj Adults aged 40-75 with LDL 70-189 mg/dL should have their 10 year ASCVD risk estimated with the ACC/AHA ASCVD risk intelligence operations specialist http://tools.acc.org/MLPUU-Eyyg-Tslgaffns/ Statin should be discussed if risk greater [...] In Lab Susannah Gómez MD CHEMISTRY ORDERABLES [facility] [place] [address] * (ABNORMAL) Troponin (09/26/2022 8:55 PM EDT) Troponin-T HS 35(H) <=14 ng/L [facility] Comment: This patient's troponin T [...] troponin value can be found in the [facility] Laboratory Test Catalog Troponin - [facility] Laboratory Test Catalog Reference: Fourth Selby Definition of Myocardial Infarction. Journal of the [place] College of Cardiology 2018;72:1111-7355 Blood 09/26/2022 8:55 PM EDT 09/26/2022 8:59 PM EDT Narrative Resulting Agency Comment Spec In Lab Susannah Gómez MD CHEMISTRY ORDERABLES [facility] [place] [address] * Gold Tube HOLD (09/26/2022 5:50 PM EDT) Gold Hold Sample in lab. [facility] Blood Venous Draw / Unknown 09/26/2022 5:50 PM EDT 09/26/2022 6:13 PM EDT Vimal Holman MD CHEMISTRY ORDERABLES Performing Organization Address [facility]/ZIP Co de Phone Number [facility] [place] [address] * Differential, Automated (09/26/2022 5:50 PM EDT) [facility] Neutrophils % 53.9 % [facility] Neutr Abs (ANC) 2.93 1.70 - 6.10 x10(3)/[facility] Lymphocytes % 34.3 % [facility] Lymphocytes Abs 1.9 0.9 - 3.2 x10(3)/[facility] Monocytes % 8.3 % [facility] Monocyte Abs 0.4 0.3 - 0.9 x10(3)/[facility] Eosinophils % 2.4 % [facility] Eosinophils Abs 0.1 0.0 - 0.4 x10(3)/[facility] Basophils % 0.7 % [facility] Basophils Abs 0.0 0.0 - 0.1 x10(3)/[facility] Immature Gran % 0.40 % [facility] Comment: Immature granulocytes(IG's)percentage and absolute count will include metamyelocytes, myelocytes, and promyelocytes. Blood smears from CBCs yielding IG's will be scanned manually for concordance. If this scan disagrees with the automated IG or if promyelocytes are noted, a manual differential will be performed. Shonda Gran Abs 0.02 0.00 - 0.04 x10(3)/[facility] Blood 09/26/2022 5:50 PM EDT 09/26/2022 6:12 PM EDT Narrative Resulting Agency Comment Spec In Lab Vimal Holman MD HEMATOLOGY ORDERABLE S [facility] [place] [address] * Hemogram (09/26/2022 5:50 PM EDT) WBC 5.4 4.0 - 9.5 x10(3)/[facility] RBC 4.58 4.00 - 5.21 x10(6)/[facility] Hemoglobin 14.5 11.7 - 15.5 g/dL [facility] Hematocrit 42.4 35.7 - 45.8 % [facility] MCV 92.6 82.6 - 94.[address] [facility] MCH 31.7 27.1 - 32.[address] [facility] MCHC 34.2 31.7 - 35.0 g/dL [facility] Platelets 182 145 - 357 x10(3)/[facility] RDWSD 43.2 37.0 - 46.0 [facility] RDWCV 12.6 11.5 - 14.1 % [facility] MPV 11.3 7.6 - 12.9 [facility] nRBC % Auto 0.0 % [facility] nRBC Abs Auto 0.000 0.000 - 0.000 x10(3)/[facility] Blood 09/26/2022 5:50 PM EDT 09/26/2022 6:12 PM EDT Narrative Resulting Agency Comment Spec In Lab Vimal Holman MD HEMATOLOGY ORDERABLE S [facility] [place] [address] * (ABNORMAL) Basic Metabolic Panel (non-fasting) (09/26/2022 5:50 PM EDT) Glucose Lvl 81 65 - 199 mg/dL [facility] Comment:Diabetes: >=200 mg/d L plus symptoms BUN 28(H) 8 - 18 mg/dL [facility] Creatinine 1.02 0.70 - 1.20 mg/dL [facility] [...] questions. Chloride 108(H) 98 - 107 mmol/L [facility] CO2 19(L) 22 - 31 mmol/L [facility] Anion Gap 13 5 - 15 mmol/L [facility] Calcium 9.0 8.5 - 10.5 mg/dL [facility] Estimated GFR 66 >=60 mL/min/1. 73 m?? [facility] [...] Gómez MD CHEMISTRY ORDERABLES Performing Organization Address City/[facility]/ZIP Co de Phone Number [facility] [place] [address] * Magnesium (09/26/2022 5:50 PM EDT) Magnesium 0.89 0.69 - 1.07 mmol/L [facility] Blood 09/26/2022 5:50 PM EDT 09/26/2022 6:12 PM EDT Narrative Resulting Agency Comment Spec In Lab Susannah Gómez MD CHEMISTRY ORDERABLES Performing Organization Address [facility] Co de Phone Number [facility] [place] [address] * Calcium (09/26/2022 5:50 PM EDT) Calcium 9.0 8.5 - 10.5 mg/dL [facility] Blood 09/26/2022 5:50 PM EDT 09/26/2022 6:12 PM EDT Narrative Resulting Agency Comment Spec In Lab Susannah Gómez MD CHEMISTRY ORDERABLES Performing Organization Address [facility] Co de Phone Number [facility] [place] [address] * (ABNORMAL) Prothrombin Time (09/26/2022 5:50 PM EDT) PT 14.3(H) 9.4 - 12.[address] [facility] INR 1.3 [facility] Comment: An [...] MD HEMATOLOGY ORDERABLE S Performing Organization Address City/[facility]/ZIP Co de Phone Number [facility] [place] [address] * (ABNORMAL) APTT (09/26/2022 5:50 PM EDT) PTT 39(H) 25 - [address] [facility] [...] MD HEMATOLOGY ORDERABLE S Performing Organization Address [facility]/ZIP Co de Phone Number [facility] [address] * (ABNORMAL) pro-Brain Natriuretic Peptide (09/26/2022 5:50 PM EDT) ProBNP 1,069(H) <=124 pg/mL [facility] Blood 09/26/2022 5:50 PM EDT 09/26/2022 6:12 PM EDT Narrative Resulting Agency Comment Spec In Lab Susannah Gómez MD CHEMISTRY ORDERABLES Performing Organization Address City/[facility]/ZIP Co de Phone Number [facility] [place] [address] * TSH (09/26/2022 5:50 PM EDT) TSH 3.02 0.27 - 4.20 mcIU/mL [facility] Comment: Reference Interval (mcIU/mL): Females: ??First Trimester: 0.23-3.88 ??Second Trimester: 0.22-3.90 ??Third Trimester: 0.44-4.66 Blood 09/26/2022 5:50 PM EDT 09/26/2022 6:12 PM EDT Narrative Resulting Agency Comment Spec In Lab Susannah Gómez MD CHEMISTRY ORDERABLES Performing Organization Address [facility] Co de Phone Number [facility] [place] [address] * EKG 12 Lead (09/26/2022 5:33 PM EDT) Ventricular rate 54 BPM MUSE SYSTEM Atrial Rate 54 BPM MUSE SYSTEM P-R Interval 180 ms MUSE SYSTEM QRS Duration 84 ms MUSE SYSTEM Q-T Interval 438 ms MUSE SYSTEM QTC Calculated (Bezet) 415 ms MUSE SYSTEM Calculated P Bend 20 degrees MUSE SYSTEM Calculated R Bend 21 degrees MUSE SYSTEM Calculated T Bend -28 degrees MUSE SYSTEM INTERPRETATION Sinus bradycardia ST & T wave abnormality, consider inferior ischemia Abnormal ECG When compared with ECG of 30-JUL-2022 09:33, T wave inversion now evident in Inferior leads Nonspecific T wave abnormality, worse in Anterolateral leads QT has shortened Confirmed by MD Hans, [place] ([id number]) on 10/02/2022 11:07:34 AM MUSE SYSTEM 09/26/2022 5:33 PM EDT 10/02/2022 11:07 AM EDT Unknown ECG ORDERABLES Performing Organization Address [facility] Co de Phone Number MUSE SYSTEM * CRP, acute inflammation (09/26/2022 5:01 PM EDT) CRP <3.0 <=4.9 mg/L [facility] Blood Venous Draw / Unknown 09/26/2022 5:01 PM EDT 09/26/2022 5:33 PM EDT Narrative Resulting Agency Comment Spec In Lab Paulo Ramachandran Jr., MD CHEMISTRY LOREN PONCE Performing Organization Address [facility]/ZIP Co de Phone Number [facility] [place] [address] * (ABNORMAL) Troponin (09/26/2022 5:01 PM EDT) Troponin-T HS 29(H) <=14 ng/L [facility] Comment: This patient's troponin T [...] troponin value can be found in the [facility] Laboratory Test Catalog Troponin - [facility] Laboratory Test Catalog Reference: Fourth Selby Definition of Myocardial Infarction. Journal of the [place] [employer] 2018;72:4294-9693 Blood 09/26/2022 5:01 PM EDT 09/26/2022 5:12 PM EDT Narrative Resulting Agency Comment Spec In Lab Susannah Gómez MD CHEMISTRY ORDERABLES Performing Organization Address City/[facility]/ZIP Co de Phone Number [facility] [place] [address] documented in this encounter Visit Diagnoses Diagnosis [...] Routine documented in this encounter Care Teams Youth Care Professional Relationship Specialty Start Date End Date Polo Pearce PA [address] [place] [address] PCP - General Internal Medicine 06/09/21 documented as of this encounter
--- OUTSIDE RECORDS SUMMARY | 2023-10-05 17:08 | XMS_ITS | Encounter Summary ---
Author Organization [facility] Address [facility] [place] [address] Care Team Providers Care Vp Revenue Cycle Name Role Phone Polo Pearce Primary Care Provider [phone] Reason for Visit * Reason Comments Medication Refill Encounter Details Date Type Department Care Team (Late st Contact Info) Description 07/24/2022 Refill Cardiology at [address] [phone] Deja Zaidi PA [facility] [place] [address] Medication Refill Social History Tobacco Use Types [...] AM EDT Tech [place] [phone] [place] 10/08/2023 9:30 AM EDT Office Visit [place] [phone] MD [facility] [place] [address] 10/21/2023 10:30 AM EDT Appointment Nuclear Medicine at [place] [phone] Mary Reyes [facility] [place] [address] 10/21/2023 11:30 AM EDT Appointment Nuclear Medicine at [place] [phone] Mary Ryees [facility] [place] [address] 10/21/2023 12:30 PM EDT Appointment [place] [address] Mary Reyes [facility] [place] [address] 10/21/2023 1:30 PM EDT Appointment [place] [phone] Mary Reyes [facility] [place] [address] 10/21/2023 2:30 PM EDT Appointment [place] [phone] Mary Reyes [facility] [place] [address] 10/26/2023 4:00 PM EDT Office Visit Cardiology at [address] [phone] Jaspreet Kinsey MD [facility] [place] [address] 10/28/2023 9:00 AM EDT Office [place] [address] 10/29/2023 10:00 AM EDT Clinical [place] [address] 10/29/2023 10:15 AM EDT Procedure [place] [address] 11/01/2023 5:00 PM EDT Office Visit Gastroenterology at [place] [phone] Selene Browning, PhD [facility] [place] [address] 11/22/2023 4:40 PM EDT Office Visit Cardiology at [place] [phone] Porsha Mcdaniels MD [facility] [place] [address] 12/13/2023 10:00 AM EDT Clinical Support [place] [phone] Lucero Romero, [place] [facility] [place] [address] documented as of this encounter Visit Diagnoses Diagnosis Chronic heart failure with preserved ejection fraction documented in this encounter Care Teams Vp Revenue Cycle Relationship Specialty Start Date End Date Polo Pearce PA Sb [address] [place] [address] PCP - General Internal Medicine 06/09/21 documented as of this encounter
--- OUTSIDE RECORDS SUMMARY | 2023-10-05 17:08 | XMS_ITS | Encounter Summary ---
Author Organization [facility] [place] [address] Care Team Providers Care Mainframe Consultant Name Role Phone Polo Pearce Primary Care Provider [phone] Encounter Details Date Type Department Care Team (Late st Contact Info) Description 06/30/2022 Orders Only Cardiology at [address] [phone] Jaspreet Kinsey MD [facility] [place] [address] Chest pain, unspecified type Social History Tobacco [...] AM EDT Tech [place] [phone] [place] [place] 10/08/2023 9:30 AM EDT Office Visit [place] [phone] MD [facility] [place] [address] 10/21/2023 10:30 AM EDT Appointment Nuclear Medicine at [place] [phone] [place] [address] 10/21/2023 11:30 AM EDT Appointment [place] [phone] [place] [address] 10/21/2023 12:30 PM EDT Appointment [place] [phone] Mary Reyes [facility] [place] [address] 10/21/2023 1:30 PM EDT Appointment [place] [phone] Mary Reyes [facility] [place] [address] 10/21/2023 2:30 PM EDT Appointment [place] [phone] Mary Reyes [facility] [place] [address] 10/26/2023 4:00 PM EDT Office Visit Cardiology at [address] [phone] Jaspreet Kinsey MD [facility] [place] [address] 10/28/2023 9:00 AM EDT Office Visit Gastroenterology [place] [address] 10/29/2023 10:00 AM EDT Clinical Support Gastroenterology [place] [address] 10/29/2023 10:15 AM EDT Procedure visit Gastroenterology [place] [address] 11/01/2023 5:00 PM EDT Office Visit Gastroenterology at [place] [phone] Selene Browning, PhD [facility] [place] [address] 11/22/2023 4:40 PM EDT Office Visit Cardiology at [address] [address] Porsha Mcdaniels MD [facility] [place] [address] 12/13/2023 10:00 AM EDT Clinical Support [place] [phone] Lucero Romero, [place] [facility] [place] [address] documented as of this encounter Visit Diagnoses Diagnosis Chest pain, unspecified type documented in this encounter Care Teams Mainframe Consultant Relationship Specialty Start Date End Date Polo Pearce PA [address] [place] [address] PCP - General Internal Medicine 06/09/21 documented as of this encounter
--- OUTSIDE RECORDS SUMMARY | 2023-10-05 17:09 | XMS_ITS | Encounter Summary ---
[place] [address] Care Team Providers Care Statistics Intern Name Role Phone Polo Pearce Primary Care Provider [phone] Reason for Referral * Diagnostic Test (Routine) - Closed Specialty Diagnoses / Procedures Referred By Jayant harris Referred To Contact Cardiology Diagnoses Elevated blood pressure reading without diagnosis of hypertension Procedures Ziopatch 48 Hrs-15 Days Deja Ziadi PA [facility] [place] [address] [facility] [place] [address] Referral ID Status Reason Start Date Expiration Date V isits Requested Visits Authorized [id number] Closed Specialty Service Requested 06/09/2021 12/09/2021 1 1 Reason for Visit * Diagnostic Test (Routine) - Closed Specialty Diagnoses / Procedures Referred By Jayant harris Referred To Contact Cardiology Diagnoses Elevated blood pressure reading without diagnosis of hypertension Procedures Ziopatch 48 Hrs-15 Days Deja Zaidi PA [facility] [place] [address] [facility] [place] [address] Referral ID Status Reason Start Date Expiration Date V isits Requested Visits Authorized [id number] Closed Specialty Service Requested 06/09/2021 12/09/2021 1 1 Encounter Details Date Type Department Care Team (Latest Contact Info) Description 06/09/2021 3:00 PM EDT - 06/09/2021 11:59 PM EDT Hospital Encounter Non-[place] [phone] Elevated blood pressure reading without diagnosis of [...] as needed. fluticasone propionate (FLONASE) 50 mcg/actuation [place], Suspension 1 spray by Each Nare route [...] AM EDT Tech [place] [address] [place] Escob[place] 10/08/2023 9:30 AM EDT Office Visit [place] [phone] MD [facility] DR VASCULAR SURGERY [place], [place] [address] 10/21/2023 10:30 AM EDT Appointment Nuclear Medicine at [place] [phone] [place] [address] 10/21/2023 11:30 AM EDT Appointment Nuclear Medicine at [place] [phone] Mary Reyes [facility] [place] [address] 10/21/2023 12:30 PM EDT Appointment [place] [address] Mary Reyes [facility] [place] [address] 10/21/2023 1:30 PM EDT Appointment [place] [address] Mary Reyes [facility] [place] [address] 10/21/2023 2:30 PM EDT Appointment [place] [address] Mary Reyes [facility] [place] [address] 10/26/2023 4:00 PM EDT Office Visit Cardiology at [address] [phone] Jaspreet Kinsey MD [facility] [place] [address] 10/28/2023 9:00 AM EDT Office Visit [place] [address] 10/29/2023 10:00 AM EDT Clinical [place] [address] 10/29/2023 10:15 AM EDT Procedure [place] [address] 11/01/2023 5:00 PM EDT Office Visit [place] [phone] Selene Browning, PhD [facility] [place] [address] 11/22/2023 4:40 PM EDT Office Visit Cardiology at [address] [address] Porsha Mcdaniels MD [facility] [place] [address] 12/13/2023 10:00 AM EDT Clinical [place] [phone] Lucero Romero, [place] [facility] [place] [place] [address] documented as of this encounter Procedures Procedure Name Priority Date/Time Associated Diagnosis Comments ZIOPATCH 48 HRS-15 DAYS Routine 06/09/2021 3:48 PM EDT Elevated blood pressure reading without diagnosis of hypertension documented in this encounter Results * Ziopatch 48 Hrs-15 Days (06/09/2021 3:48 PM EDT) Anatomical Region Laterality Modality Other Narrative 07/01/2021 9:29 AM EDT [facility] ? Zio Patch? Ambulatory Cardiac Event Monitor [...] described ?? Kurt Larose MD, PhD, [facility] Cardiac Electrophysiology Mario Hallman MD CARDIAC SERVICES ORD ERABLES documented in this encounter Visit Diagnoses Diagnosis Elevated blood pressure reading without diagnosis of hypertension documented in this encounter Care Teams Statistics Intern Relationship Specialty Start Date End Date Polo Pearce PA [address] [place] [address] PCP - General Internal Medicine 06/09/21 documented as of this encounter
--- OUTSIDE RECORDS SUMMARY | 2023-10-05 17:09 | XMS_ITS | Encounter Summary ---
Author Organization [facility] Address [facility] [place] [address] Care Team Providers Care Chemical Worker Name Role Phone Polo Pearce Primary Care Provider [phone] Encounter Details Date Type Department Care Team (Late st Contact Info) Description 09/17/2021 Telephone Cardiology at [address] [place] [place] [address] Jaspreet Kinsey MD [facility] [place] [address] Social History Tobacco Use Types Packs/Day Years [...] Please call on her work phone @ [phone]. Or you may leave a message on her cell phone @ [phone] documented in this encounter Plan of Treatment Upcoming Encounters Date Type Department Care Team (Late st Contact Info) Description 10/08/2023 8:30 AM EDT Tech [place] [address] Ch[place] Escobedo [place] 10/08/2023 9:30 AM EDT Office Visit [place] [address] MD [facility] [place] [address] 10/21/2023 10:30 AM EDT Appointment Nuclear Medicine at [address] Mary Reyes [facility] [address] 10/21/2023 11:30 AM EDT Appointment Nuclear Medicine at [place] [phone] Mary Reyes [facility] [address] 10/21/2023 12:30 PM EDT Appointment Nuclear Medicine at [place] [phone] Mary Reyes [facility] [address] 10/21/2023 1:30 PM EDT Appointment [place] [address] Mary Reyes [facility] [address] 10/21/2023 2:30 PM EDT Appointment [place] [phone] Mary Reyes [facility] [address] 10/26/2023 4:00 PM EDT Office Visit Cardiology at [address] [phone] Jaspreet Kinsey MD [facility] [place] [address] 10/28/2023 9:00 AM EDT Office [place] [address] 10/29/2023 10:00 AM EDT Clinical [place] [address] 10/29/2023 10:15 AM EDT Procedure [place] [address] 11/01/2023 5:00 PM EDT Office [place] [phone] Selene Browning, PhD [facility] [place] [address] 11/22/2023 4:40 PM EDT Office Visit Cardiology at [address] [phone] Porsha Mcdaniels MD [facility] [place] [address] 12/13/2023 10:00 AM EDT Clinical [place] [phone] [facility] [place] [place] [address] documented as of this encounter Visit Diagnoses Not on filedocumented in this encounter Care Teams Chemical Worker Relationship Specialty Start Date End Date Polo Pearce PA [address] [place] [address] PCP - General Internal Medicine 06/09/21 documented as of this encounter
--- OUTSIDE RECORDS SUMMARY | 2023-10-05 17:09 | XMS_ITS | Encounter Summary ---
Author Organization Formerly [facility] [place] [address] Care Team Providers Care Manager Software Development Name Role Phone Polo Pearce Primary Care Provider [phone] Reason for Visit * Auth/Cert Specialty Diagnoses / Procedures Referred By Jayant harris Referred To Contact Diagnoses NSTEMI (non-ST elevated myocardial infarction) Chest Pain Procedures EMERGENCY IPI Sobeida Jimenez MD [facility] [place] [address] [facility] Referral ID Status Reason Start Date Expiration Date Visits Re quested Visits Authorized [id number] 1 1 Encounter Details Date Type Department Care Team (Latest Contact Info) Description 12/30/2021 10:41 PM EDT - 01/01/2022 2:24 PM EDT Hospital Encounter Card[place] [address] Sobeida Jimenez MD [facility] [address] [place], [place] [id number] SVT (supraventricular tachycardia); Non-ST elevation SC (NSTEMI); NSTEMI (non-ST elevated myocardial infarction); Acute [...] Loida Madrigal Patient Age: 51 y.o. Language: [place] Islander Race: White Ethnicity: Not nor Admit date: 12/30/2021 Discharge date and time: 01/01/2022 Attending Physician: Sobeida Jimenez MD Discharge Physician: Sobeida Jimenez MD ID: Loida Madrigal is a 51 y.o. female w/ PMH of AVNRT, HFpEF, asthma, MARYLOU, obesity, mild PAH([facility] 06/2021) who presents today in transfer [...] JOCY Franco [address] / [facility] [address] Pending Studies and Lab Data: Official Ankle [...] preserved ejection fraction 05/2021: subacute, presented to [facility] with RUQ pain, weight gain, and progressive dyspnea. Noted to caryr most fluid in abdomen ??? Restless legs ??? Non-ST elevation SC (NSTEMI) ??? Asthma ??? Rhinitis, nonallergic, chronic [...] plavix 600 with plan to transfer to [facility] for furthermanagement. Pertinent prior studies below: ?? [...] Type II Patient initially presented to the [facility] ED on 12/30 with chest pain. Initial [...] 12/31/2021 06:52 AMBP: 109/62 mmHg Patient Location: [facility]^C450^B : 1970 Height: 163 cm Account: [id number] Age: 51 yrs Weight: 100 kg Gender: Female BSA: 2.0 m2 Ordering Physician: SOBEIDA JIMENEZ Referring Physician: KARIN ESPINOSA Performed By: HAIM Harris Reason For Study: Acute on chronic heart failure with preserved ejection fraction Exam Location: [facility]. Interpretation Summary -Left ventricle is of [...] the prior study from 06/09/21 ?? Procedure Complete-36081. Satisfactory quality. There is sinus bradycardia. ?? [...] have questions please contact the health career resource technician that requested your imaging first. Discharge Conditions/Prognosis: [...] scheduled with both your PCP and your solar sales consultant in the outpatient setting within the next [...] appointments: During 8am-5pm Wednesday through Wednesday call [phone] to speak with a nurse in the cardiology clinic All other times call [phone] and ask to speak to the hydraulic barker operator contracts manager. Follow up Appointments: Future Appointments Date Time Provider Department Center 01/21/2022 9:00 AM Jaspreet Kinsye MD [facility] 01/12/2022, Appointment with Mr. Polo Pearce Petrophysicist: Dr. Jaspreet Kinsey PCP: JOCY Franco at [phone] Your Inpatient Doctor(s) at [facility]: Sobeida Jimenez MD - Attending physician Dr. Paris Guerra MD - Resident Physician Dr. Yoselin Gómez DO, Resident Physician Dr. Edwin Mcghee MD, Fellow Physician Your Primary Care Provider: JOCY Franco [facility] [address] For questions regarding issues relating to your hospitalization on the Hospital Medicine Service, please contact your inpatient physician through the [facility] Rehabilitation Coordinator [phone]. Issues after hours and on weekends will be handled by the Hospitalist staff on-call. General Instructions None Future Appointments and Orders Future Appointments and Orders Future Appointments Provider Department Dept Phone 01/21/2022 9:00 AM Jaspreet Kinsey MD Cardiology at [place] Arrive at: [facility] [address] [phone] Inpatient Provider Contact Information: Deven Guerra Jr, MD Internal Medicine, PGY-3 [facility], pager [phone] Discharge References/Attachments: Discharge References/Attachments None documented in [...] scheduled with both your PCP and your solar sales consultant in the outpatient setting within the next [...] appointments: During 8am-5pm Wednesday through Wednesday call [phone] to speak with a nurse in the cardiology clinic All other times call [phone] and ask to speak to the hydraulic barker operator contracts manager. Follow up Appointments: Future Appointments Date Time Provider Department Center 01/21/2022 9:00 AM Jaspreet Kinsey MD [facility] 01/12/2022, Appointment with Mr. Polo Pearce Petrophysicist: Dr. Jaspreet Kinsey PCP: JOCY Franco at [phone] Your Inpatient Doctor(s) at [facility]: Sobeida Jimenez MD - Attending physician Dr. Paris Guerra MD - Resident Physician Dr. Yoselin Gómez DO, Resident Physician Dr. Edwin Mcghee MD, Fellow Physician Your Primary Care Provider: JOCY Franco [address] [facility] [address] For questions regarding issues relating to your hospitalization on the Hospital Medicine Service, please contact your inpatient physician through the [facility] Rehabilitation Coordinator [phone]. Issues after hours and on weekends will [...] as needed. fluticasone propionate (FLONASE) 50 mcg/actuation Sentinel, Suspension 1 spray by Each Nare route [...] 1970 PCP: JOCY Franco PCP phone number: [phone] Date of Admission: 12/30/2021 ( Hospital Day 1 day ) Attending:Sobeida Jimenez MD ID: Loida Madrigal is a 51 y.o. female w/ PMH of AVNRT, HFpEF, asthma, MARYLOU, obesity, mild PAH([facility] 06/2021) who presents today in transfer for evaluation of chest pain. Patient Active Problem List Diagnosis ??? NSTEMI (non-ST elevated myocardial infarction) ??? 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 Obesity ??? Dyslipidemia ??? Obstructive sleep apnea syndrome ??? Insomnia ??? (HFpEF) heart failure with preserved ejection fraction Overview Note: 05/2021: subacute, presented to [facility] with RUQ pain, weight gain, and progressive dyspnea. Noted to caryr most fluid in abdomen ??? Restless legs ??? Non-ST elevation SC (NSTEMI) ??? Asthma ??? Rhinitis, nonallergic, chronic [...] plavix 600 with plan to transfer to [facility] for furthermanagement. Pertinent prior studies below: ?? 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 ??? fluticasone propionate (FLONASE) 50 mcg/actuation Sentinel, Suspension 1 spray by Each Nare route [...] ??? heparin (porcine) infusion 1,000 Units/hr (12/30/21 8107) PRN Meds: lidocaine, nitroGLYcerin, sodium chloride 0.9 [...] CP and palpitations LH 2019: normal cors [facility] 2021: mild PHTN, mPA 24, CI [...] Pt up to toilet. Diet order placed, cardiac/[facility] diet. PRN ibuprofen ordered and given to [...] COVID test: Lab Results Component Value Date [id number] Not Detected 06/13/2021 Present on Admission: ??? 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 Current Living Arrangements: home/apartment/condo. Accessibility Concerns:no concerns. Current DME: none [address] [facility] [address] Social & Family Supports: Extended Emergency Contact [...] private car when medically ready. Registered Nurse [employer] Gun Hand / Agriculture Specialist will continue to follow patient???s progress and remain available if situation changes for coordination of care, psychosocial support and/or discharge planning. Office of Care Management documented in this encounter Plan of Treatment Upcoming Encounters Date Type Department Care Team (Late st Contact Info) Description 10/08/2023 8:30 AM EDT Tech [place] [address] [place] 10/08/2023 9:30 AM EDT Office [place] [phone] MD [facility] [place] [address] 10/21/2023 10:30 AM EDT Appointment Nuclear Medicine at [place] [phone] Mary Reyes [facility] [place] [address] 10/21/2023 11:30 AM EDT Appointment Nuclear Medicine at [address] Mary Reyes [facility] [place] [address] 10/21/2023 12:30 PM EDT Appointment [place] [phone] Mary Reyes [facility] [place] [address] 10/21/2023 1:30 PM EDT Appointment [place] [address] Mary Reyes [facility] [place] [address] 10/21/2023 2:30 PM EDT Appointment [place] [address] Mary Reyes [facility] [place] [address] 10/26/2023 4:00 PM EDT Office Visit Cardiology at [address] [phone] Jaspreet Kinsey MD [facility] [place] [address] 10/28/2023 9:00 AM EDT Office Visit [place] [address] 10/29/2023 10:00 AM EDT Clinical Support [place] [address] 10/29/2023 10:15 AM EDT Procedure visit [place] [address] 11/01/2023 5:00 PM EDT Office [place] [phone] Selene Browning, PhD [facility] [place] [address] 11/22/2023 4:40 PM EDT Office Visit Cardiology at [address] [address] Porsha Mcdaniels MD [facility] [place] [address] 12/13/2023 10:00 AM EDT Clinical Support [place] [phone] [facility] [place] [address] documented as of this encounter Procedures Procedure [...] have questions please contact the health career resource technician that requested your imaging first. ? Narrative [...] who have questions please contactthe health career resource technician that requested your imaging first. Sobeida Jimenez MD IMG DX ORDERABLES * Magnesium (01/01/2022 8:56 AM EDT) Magnesium 0.96 0.69 - 1.07 mmol/L [facility] Blood 01/01/2022 8:56 AM EDT 01/01/2022 9:19 AM EDT Narrative Resulting Agency Comment Spec In Lab Sobeida Jimenez MD CHEMISTRY ORDERABLES Performing Organization Address City/[facility]/[place] [address] * Differential, Automated (01/01/2022 4:15 AM EDT) Neutrophils % 59.8 % [facility] Neutr Abs (ANC) 3.72 1.70 - 6.10 x10(3)/[facility] Lymphocytes % 26.0 % [facility] Lymphocytes Abs 1.6 0.9 - 3.2 x10(3)/[facility] Monocytes % 8.7 % [facility] Monocyte Abs 0.5 0.3 - 0.9 x10(3)/[facility] Eosinophils % 4.5 % [facility] Eosinophils Abs 0.3 0.0 - 0.4 x10(3)/[facility] Basophils % 0.8 % [facility] Basophils Abs 0.0 0.0 - 0.1 x10(3)/[facility] Immature Gran % 0.20 % [facility] Comment: Immature granulocytes(IG's)percentage and absolute count will include metamyelocytes, myelocytes, and promyelocytes. Blood smears from CBCs yielding IG's will be scanned manually for concordance. If this scan disagrees with the automated IG or if promyelocytes are noted, a manual differential will be performed. Shonda Gran Abs 0.01 0.00 - 0.04 x10(3)/[facility] Blood 01/01/2022 4:15 AM EDT 01/01/2022 4:23 AM EDT Narrative Resulting Agency Comment Spec In Lab Lorna Haider MD HEMATOLOGY ORDERABL ES Performing Organization Address City/[facility]/ZIP Co de Phone Number [facility] [place] [address] * Hemogram (01/01/2022 4:15 AM EDT) Pathologist [facility] WBC 6.2 4.0 - 9.5 x10(3)/[facility] RBC 4.43 4.00 - 5.21 x10(6)/[facility] Hemoglobin 13.9 11.7 - 15.5 g/dL [facility] Hematocrit 41.3 35.7 - 45.8 % [facility] MCV 93.2 82.6 - 94.4 fL [facility] MCH 31.4 27.1 - 32.0 pg [facility] MCHC 33.7 31.7 - 35.0 g/dL [facility] Platelets 204 145 - 357 x10(3)/[facility] RDWSD 43.4 37.0 - 46.0 [facility] RDWCV 12.6 11.5 - 14.1 % [facility] MPV 10.6 7.6 - 12.9 [facility] nRBC % Auto 0.0 % [facility] nRBC Abs Auto 0.000 0.000 - 0.000 x10(3)/[facility] Blood 01/01/2022 4:15 AM EDT 01/01/2022 4:23 AM EDT Narrative Resulting Agency Comment Spec In Lab Lorna Haider MD HEMATOLOGY ORDERABL ES [facility] [place] [address] * (ABNORMAL) Basic Metabolic Panel (non-fasting) (01/01/2022 4:15 AM EDT) Pathologist [facility] Glucose Lvl 103 65 - 199 mg/dL [facility] Comment:Diabetes: >=200 mg/d L plus symptoms BUN 26(H) 8 - 18 mg/dL [facility] Creatinine 1.04 0.70 - 1.20 mg/dL [facility] Sodium 137 135 - 145 mmol/L [facility] Potassium 4.0 3.5 - 5.0 mmol/L [facility] Comment: Please note: ??Patients with WBC >100,000 may have falsely elevated Potassium levels. ??For accurate Potassium quantification in these patients send serum separator tube (gold top) for subsequent determinations. ??Contact the Clinical Chemistry Laboratory if there are any questions. Chloride 109(H) 98 - 107 mmol/L [facility] CO2 15(L) 22 - 31 mmol/L [facility] Anion Gap 13 5 - 15 mmol/L [facility] Calcium 8.9 8.5 - 10.5 mg/dL [facility] Estimated GFR 65 >=60 mL/min/1. 73 m?? [facility] Comment: This patient's estimated GFR [...] In Lab Sobeida Jimenez MD CHEMISTRY ORDERABLES [facility] [place] [address] * ECHO COMPLETE (12/31/2021 8:02 AM EDT) Anatomical Region Laterality Modality Cardiac Other 12/31/2021 6:52 AM EDT Narrative 12/31/2021 8:30 AM EDT ? Echocardiogram Report Name: LOIDA MADRIGAL ? Study Date: 12/31/2021 06:52 AMBP: 109/62 mmHg ? Patient Location: [facility]^C450^B : 1970 ? Height: 163 cm ? Account: [id number] Age: 51 yrs ? Weight: 100 kg Gender: Female ?BSA: 2.0 m2 Ordering Physician: SOBEIDA JIMENEZ Referring Physician: KARIN ESPINOSA Performed By: HAIM Harris Reason For Study: Acute on chronic heart failure with preserved ejection fraction Exam Location: [facility]. Interpretation Summary -Left ventricle is of [...] to the prior study from 06/09/21 Procedure Complete-[id number]. Satisfactory quality. There is sinus bradycardia. Left [...] Study Date: 206:52 AMBP: 109/62 mmHg Patient Location:[facility]^C450^B : 1970 Height: 163 cm Account: [id number] Age: 51 yrs Weight: 100 kg Gender: Female BSA: 2.0 m2 Ordering Physician: SOBEIDA JIMENEZ Referring Physician: KARIN ESPINOSA Performed By: HAIM Harris Reason For Study: Acute on chronic heart failure with preserved ejectionfraction Exam Location: [facility]. Interpretation Summary -Left ventricle is of [...] to the prior study from 06/09/21 Procedure Complete-[id number]. Satisfactory quality. There is sinus bradycardia. Left [...] AM EDT) Heparin UFH Level 0.43 IU/mL [facility] Comment: [...] MD HEMATOLOGY ORDERABLE S Performing Organization Address [facility] de Phone Number [facility] [place] [address] * T4, free (12/31/2021 7:01 AM EDT) Free T4 1.16 0.93 - 1.70 ng/dL [facility] Comment: Reference Interval (ng/dL): Females: ??First Trimester: 0.97-1.68 ??Second Trimester: 0.77-1.51 ??Third Trimester: 0.77-1.49 Blood 12/31/2021 7:01 AM EDT 12/31/2021 7:11 AM EDT Narrative Resulting Agency Comment Spec In Lab Sobeida Jimenez MD CHEMISTRY ORDERABLES Performing Organization Address [facility] de Phone Number [facility] [place] [address] * (ABNORMAL) Troponin (12/31/2021 3:28 AM EDT) Pathologist [facility] Troponin-T HS 21(H) <=14 ng/L [facility] [...] troponin value can be found in the [facility] Laboratory Test Catalog Troponin - [facility] Laboratory Test Catalog Reference: Fourth [place] Definition of Myocardial Infarction. Journal of the [place] College [employer] 2018;72:0848-7969 Blood 12/31/2021 3:28 AM EDT 12/31/2021 4:31 AM EDT Narrative Resulting Agency Comment Spec In Lab Sobeida Jimenez MD CHEMISTRY ORDERABLES Performing Organization Address City/State/[facility] Co de Phone Number [facility] [place] [phone] * EKG 12 Lead (12/31/2021 3:23 AM EDT) Ventricular rate 44 BPM MUSE SYSTEM Atrial Rate 44 BPM MUSE SYSTEM P-R Interval 190 ms MUSE SYSTEM QRS Duration 86 ms MUSE SYSTEM Q-T Interval 562 ms MUSE SYSTEM QTC Calculated (Bezet) 480 ms MUSE SYSTEM Calculated P [place] 32 degrees MUSE SYSTEM Calculated R [place] 58 degrees MUSE SYSTEM Calculated T [place] 24 degrees MUSE SYSTEM INTERPRETATION Marked sinus bradycardia Possible Lateral infarct (cited on or before 30-DEC-2021) Nonspecific ST and T wave abnormality Prolonged QT Abnormal ECG When compared with ECG of 30-DEC-2021 22:45, No significant change was found I personally reviewed the tracing and edited the fellows interpretation Confirmed by fellow MD Rosalinda, Alejandro ([id number]) on 12/31/2021 9:13:46 PM Confirmed by MD Angelo Danette ([id number]) on 01/01/2022 7:24:12 AM MUSE SYSTEM 12/31/2021 3:23 AM EDT 01/01/2022 7:24 AM EDT Sobeida Jimenez MD ECG ORDERABLES MUSE SYSTEM * Heparin (unfractionated) Level (12/31/2021 12:20 AM EDT) Heparin UFH Level 0.40 IU/mL [facility] Comment: Specimen drawn more than [...] MD HEMATOLOGY ORDERABLE S Performing Organization Address City/[facility] Co de Phone Number [facility] [place] [address] * Differential, Automated (12/31/2021 12:20 AM EDT) Neutrophils % 57.0 % [facility] Neutr Abs (ANC) 4.48 1.70 - 6.10 x10(3)/[facility] Lymphocytes % 32.4 % [facility] Lymphocytes Abs 2.6 0.9 - 3.2 x10(3)/[facility] Monocytes % 6.4 % [facility] Monocyte Abs 0.5 0.3 - 0.9 x10(3)/[facility] Eosinophils % 3.3 % [facility] Eosinophils Abs 0.3 0.0 - 0.4 x10(3)/[facility] Basophils % 0.5 % [facility] Basophils Abs 0.0 0.0 - 0.1 x10(3)/[facility] Immature Gran % 0.40 % [...] Abs 0.03 0.00 - 0.04 x10(3)/[facility] Blood 12/31/2021 12:2 0 AM EDT 12/31/2021 12:41 AM EDT Narrative Resulting Agency Comment Spec In Lab Lorna Haider MD HEMATOLOGY ORDERABL ES [facility] [place] [address] * Hemogram (12/31/2021 12:20 AM EDT) WBC 7.9 4.0 - 9.5 x10(3)/[facility] RBC 4.24 4.00 - 5.21 x10(6)/[facility] Hemoglobin 13.3 11.7 - 15.5 g/dL [facility] Hematocrit 39.1 35.7 - 45.8 % [facility] MCV 92.2 82.6 - 94.4 fL [facility] MCH 31.4 27.1 - 32.0 pg [facility] MCHC 34.0 31.7 - 35.0 g/dL [facility] Platelets 209 145 - 357 x10(3)/[facility] RDWSD 43.2 37.0 - 46.0 fL [facility] RDWCV 12.8 11.5 - 14.1 % [facility] MPV 11.2 7.6 - 12.9 fL [facility] nRBC % Auto 0.0 % [facility] nRBC Abs Auto 0.000 0.000 - 0.000 x10(3)/mcL [facility] Blood 12/31/2021 12:2 0 AM EDT 12/31/2021 12:41 AM EDT Narrative Resulting Agency Comment Spec In Lab Lorna Haider MD HEMATOLOGY ORDERABL ES Performing Organization Address City/State/[facility] Co de Phone Number [facility] [place] [address] * (ABNORMAL) Troponin (12/31/2021 12:20 AM EDT) Troponin-T HS 19(H) <=14 ng/L [facility] [...] troponin value can be found in the [facility] Laboratory Test Catalog Troponin - [facility] Laboratory Test Catalog Reference: Fourth [place] Definition of Myocardial Infarction. Journal of the [place] College [employer]iology 2018;72:[id number] Blood 12/31/2021 12:2 0 AM EDT 12/31/2021 12:41 AM EDT Narrative Resulting Agency Comment Spec In Lab Sobeida Jimenez MD CHEMISTRY ORDERABLES [facility] [place] [address] * (ABNORMAL) Hemoglobin A1c (12/31/2021 12:20 AM EDT) Hemoglobin A1C 5.7(H) 4.3 - 5.6 % [facility] [...] 1, S67-74 Est Avg Gluc 118 mg/dL [facility] Comment: eAG equivalents for HbA1c [...] into estimated average glucose values. ??Diabetes Care 2008:31(8):2032-6638. Blood 12/31/2021 12:2 0 AM EDT 12/31/2021 12:42 AM EDT Narrative Resulting Agency Comment Spec In Lab Sobeida Jimenez MD CHEMISTRY ORDERABLES [facility] [place] [address] * Lipid Panel (Reflex Direct LDL) (12/31/2021 12:20 AM EDT) Chol, Total 122 mg/dL [facility] Comment: Lower Risk: <200 mg/dL Average Risk: 200-239 mg/dL Higher Risk: >nd=461 mg/dL Triglycerides 111 mg/dL [facility] Comment: Average Risk/Lower Risk: <150 mg/dL Borderline High Risk: 150-199 mg/dL High Risk: 200-499 mg/dL Very High Risk: >zi=921 mg/dL HDL 35 mg/dL [facility] Comment: Males: ?? Higher Risk: <40 mg/dL Females: ?? Higher Risk: <50 mg/dL LDL Cholesterol 65 mg/dL [facility] Comment: Lowest Risk: <100 mg/dL Lower Risk: 100-129 mg/dL Borderline High Risk: 130-159 mg/dL High Risk: 160-189 mg/dL Very High Risk: >sg=557 mg/dL Chol/HDL Ratio 3.5 ratio [facility] Lipid Interpretation See Note [facility] Comment: Lipid management should be guided by a patient? s ASCVD risk, goals and preferences. ACC/AHA Guidelines recommend high intensity statin if clinical ASCVD or LDL greater than or equal to 190 mg/dL. http://Southern [employer] Boysurl.com/KQY-XUV-Lkhdylbhw Adults aged 40-75 with LDL 70-189 mg/dL should have their 10 year ASCVD risk estimated with the ACC/AHA ASCVD risk lumber estimator http://tools.acc.org/ZPWBC-Guvz-Cfwkmwvze/ Statin should be discussed if risk greater [...] Jimenez MD CHEMISTRY ORDERABLES Performing Organization Address [facility]/ZIP Co de Phone Number [facility] [place] [address] * (ABNORMAL) APTT (12/31/2021 12:20 AM EDT) PTT 90(H) 25 - 37 sec [facility] Comment: The PTT is NOT appropriate for heparin monitoring. Use the Anti-Xa level for heparin monitoring (HEP UFH) or LMWH monitoring (HEP LMW). A PTT less than 37 seconds generally indicates adequate hemostasis. Blood 12/31/2021 12:2 0 AM EDT 12/31/2021 12:41 AM EDT Narrative Resulting Agency Comment Spec In Lab Sobeida Jimenez MD HEMATOLOGY ORDERABLE S Performing Organization Address City/[facility]/ZIP Co de Phone Number [facility] [place] [address] * Prothrombin Time (12/31/2021 12:20 AM EDT) PT 12.5 9.4 - 12.5 sec [facility] INR 1.1 [facility] [...] MD HEMATOLOGY ORDERABLE S Performing Organization Address [facility] Co de Phone Number [facility] [place] [address] * (ABNORMAL) pro-Brain Natriuretic Peptide (12/31/2021 12:20 AM EDT) ProBNP 2,515(H) <=124 pg/mL [facility] Blood 12/31/2021 12:2 0 AM EDT 12/31/2021 12:41 AM EDT Narrative Resulting Agency Comment Spec In Lab Sobeida Jimenez MD CHEMISTRY ORDERABLES Performing Organization Address [facility] Co de Phone Number [facility] [place] [address] * (ABNORMAL) TSH (12/31/2021 12:20 AM EDT) TSH 7.36(H) 0.27 - 4.20 mcIU/mL [facility] Comment: Reference Interval (mcIU/mL): Females: ??First Trimester: 0.23-3.88 ??Second Trimester: 0.22-3.90 ??Third Trimester: 0.44-4.66 Blood 12/31/2021 12:2 0 AM EDT 12/31/2021 12:41 AM EDT Narrative Resulting Agency Comment Spec In Lab Sobeida Jimenez MD CHEMISTRY ORDERABLES Performing Organization Address [facility] Co de Phone Number [facility] [place] [address] * Phosphorus (12/31/2021 12:20 AM EDT) Phosphorus 3.5 2.5 - 4.5 mg/dL [facility] Blood 12/31/2021 12:2 0 AM EDT 12/31/2021 12:41 AM EDT Narrative Resulting Agency Comment Spec In Lab Sobeida Jimenez MD CHEMISTRY ORDERABLES Performing Organization Address [facility]/ZIP Co de Phone Number [facility] [place] [address] * Magnesium (12/31/2021 12:20 AM EDT) Pathologist [facility] Magnesium 0.87 0.69 - 1.07 mmol/L [facility] Blood 12/31/2021 12:2 0 AM EDT 12/31/2021 12:41 AM EDT Narrative Resulting Agency Comment Spec In Lab Sobeida Jimenez MD CHEMISTRY ORDERABLES Performing Organization Address City/[facility]/ZIP Co de Phone Number [facility] [place] [address] * (ABNORMAL) Basic Metabolic Panel (non-fasting) (12/31/2021 12:20 AM EDT) Pathologist [facility] Glucose Lvl 88 65 - 199 mg/dL [facility] Comment:Diabetes: >=200 mg/d L plus symptoms BUN 22(H) 8 - 18 mg/dL [facility] Creatinine 0.95 0.70 - 1.20 mg/dL [facility] Sodium 140 135 - 145 mmol/L [facility] [...] questions. Chloride 110(H) 98 - 107 mmol/L [facility] CO2 17(L) 22 - 31 mmol/L [facility] Anion Gap 13 5 - 15 mmol/L [facility] Calcium 8.5 8.5 - 10.5 mg/dL [facility] Estimated GFR 72 >=60 mL/min/1. 73 m?? [facility] Comment: This patient's estimated GFR [...] Jimenez MD CHEMISTRY ORDERABLES Performing Organization Address City/State/[facility] Co de Phone Number [facility] [place] [address] documented in this encounter Visit Diagnoses Diagnosis SVT (supraventricular tachycardia) Other specified cardiac dysrhythmias Non-ST elevation SC (NSTEMI) Acute myocardial infarction, unspecified site, episode [...] documented in this encounter Care Teams Manager Software Development Relationship Specialty Start Date End Date Polo Pearce PA [address] [place] [address] PCP - General Internal Medicine 06/09/21 documented as of this encounter
--- OUTSIDE RECORDS SUMMARY | 2023-10-05 17:09 | XMS_ITS | Encounter Summary ---
Author Organization [facility] [place] [address] Care Team Providers Care Education Teacher Name Role Phone Polo Pearce Primary Care Provider [phone] Encounter Details Date Type Department Care Team (Late st Contact Info) Description 12/30/2021 Telephone Cardiology at [address] [phone] Ciro Lovell MD [facility] [place] [address] Social History Tobacco Use Types Packs/Day Years [...] 51 year old female with mild PAH ([facility] 06/2021) without e/o parenchymal lung disease or L-sided dysfunction, ? Prior [place], C2 obesity, spastic lung disease and MARYLOU/HS [...] mild restriction, normal diffusion; no volumes done [facility] 2019 clean coronaries [facility] 06/2021 Hemodynamics: [...] AM EDT Tech Visit Vascular Lab at [place] [phone] Channing Escobedo [place] 10/08/2023 9:30 AM EDT Office Visit [place] [address] MD [facility] [place] [address] 10/21/2023 10:30 AM EDT Appointment [place] [phone] Mary Reyes APRN [facility] [place] [address] 10/21/2023 11:30 AM EDT Appointment [place] [address] Mary Reyes APRN [facility] [place] [address] 10/21/2023 12:30 PM EDT Appointment [place] [address] Mary Reyes ACCOUNT MANAGEMENT SPECIALIST [facility] [place] [address] 10/21/2023 1:30 PM EDT Appointment [place] [address] Mary Reyes [facility] [place] [address] 10/21/2023 2:30 PM EDT Appointment [place] [address] [place] [address] 10/26/2023 4:00 PM EDT Office Visit Cardiology at [address] [address] Jaspreet Kinsey MD [facility] [place] [address] 10/28/2023 9:00 AM EDT Office [place] [address] 10/29/2023 10:00 AM EDT Clinical [place] [address] 10/29/2023 10:15 AM EDT Procedure [place] [address] 11/01/2023 5:00 PM EDT Office Visit [place] [phone] Selene Browning, PhD [facility] [place] [address] 11/22/2023 4:40 PM EDT Office Visit Cardiology at [address] [address] Porsha Mcdaniels MD [facility] [place] [address] 12/13/2023 10:00 AM EDT Clinical Support [place] [phone] [facility] [place] [address] documented as of this encounter Visit Diagnoses Not on filedocumented in this encounter Care Teams Education Teacher Relationship Specialty Start Date End Date Polo Pearce PA [address] [place] [address] PCP - General Internal Medicine 06/09/21 documented as of this encounter
--- OUTSIDE RECORDS SUMMARY | 2023-10-05 17:09 | XMS_ITS | Encounter Summary ---
Author Organization [facility] Address [facility] [place] [address] Care Team Providers Care Paper Wood Cutter Name Role Phone Polo Pearce Primary Care Provider [phone] Encounter Details Date Type Department Care Team (Late st Contact Info) Description 06/13/2021 Telephone Cardiology at [address] [phone] Chayo Dominguez PA [facility] [place] [address] Social History Tobacco Use Types Packs/Day Years [...] Referring Provider: Dr. Gale Trinh Patient Location: [facility] See Dr. Mejia's telephone encounter [...] Of note, she was recently admitted to [facility] for evaluation of angina and discharged 06/08/21. At that time she initially presented to [facility] where she was noted to have a troponin I of 406 which was flat at 411 on repeat and an elevated BNP. EKG showed nonspecific ST changes in the inferolateral leads. She was transferred to [facility] for further evaluation where she underwent a [...] management. Chayo Chappell PA-C Cardiovascular Medicine Pager [phone] 06/13/2021 documented in this encounter Plan of Treatment Upcoming Encounters Date Type Department Care Team (Late st Contact Info) Description 10/08/2023 8:30 AM EDT Tech [place] [address] Ch[place] Escobedo [place] 10/08/2023 9:30 AM EDT Office Visit [place] [address] MD [facility] [place] [address] 10/21/2023 10:30 AM EDT Appointment [place] [address] Mary Reyes APRN [facility] [place] [address] 10/21/2023 11:30 AM EDT Appointment [place] [address] Mary [place] [address] 10/21/2023 12:30 PM EDT Appointment [place] [address] Mary [place] [address] 10/21/2023 1:30 PM EDT Appointment [place] [address] Mary [place] [address] 10/21/2023 2:30 PM EDT Appointment [place] [address] [place] [address] 10/26/2023 4:00 PM EDT Office Visit Cardiology at [address] [phone] Jaspreet Kinsey MD [facility] [address] 10/28/2023 9:00 AM EDT Office [place] [address] 10/29/2023 10:00 AM EDT Clinical [place] [address] 10/29/2023 10:15 AM EDT Procedure [place] [address] 11/01/2023 5:00 PM EDT Office Visit [place] [address] Selene Browning, PhD [facility] [place] [address] 11/22/2023 4:40 PM EDT Office Visit Cardiology at [address] [address] Porsha Mcdaniels MD [facility] [place] [address] 12/13/2023 10:00 AM EDT Clinical Support [place] [phone] Lucero Romero, [place] [facility] [place] [address] documented as of this encounter Visit Diagnoses Not on filedocumented in this encounter Care Teams Paper Wood Cutter Relationship Specialty Start Date End Date Polo Pearce PA [address] [place] [address] PCP - General Internal Medicine 06/09/21 documented as of this encounter
--- OUTSIDE RECORDS SUMMARY | 2023-10-05 17:09 | XMS_ITS | Encounter Summary ---
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 Sandy Serna MD [facility] [place] [address] [facility] Cardiology [address] [place] [phone] Referral ID Status Reason Start Date Expiration Date V isits Requested Visits Authorized [id number] Closed Consult, Test & Treat 06/14/2021 06/14/2022 1 1 Encounter Details Date Type Department Care Team (Late st Contact Info) Description 08/19/2021 3:00 PM EDT Office Visit Cardiology at [address] [phone] Umberto Joy PA [facility] [place] [address] AVNRT (AV makayla re-entry tachycardia) [...] EKGs(ST T-wave abnormalities) but clean cors at [facility] in 2019 and essentially normal echocardiogram(LVEF 61%, [...] anticipated in the future. She lives in [place], [place] and has seen Dr. Kinsey in [place]. Patient Active Problem List Diagnosis ??? 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 Obesity ??? Dyslipidemia ??? MARYLOU on CPAP ??? Restless leg syndrome ??? Insomnia ??? 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 ??? fluticasone propionate (FLONASE) 50 mcg/actuation [place], Suspension 1 spray by Each Nare route [...] 12 lead EK08/19/2021 Sinus bradycardia @ 57; ND 176; QRS 84; QTc 443ms Zio: 06/09/2021 [...] No significant change from prior in 08/2019. [facility]: 08/2019 Clean coronaries Assessment and Plan 51yo [...] history and diagnostic findings with emphasis on quality assurance monitor data. We also discussed risk/benefit of [...] AM EDT Tech Visit Vascular Lab at [place] [phone] [place] 10/08/2023 9:30 AM EDT Office Visit Vascular Surgery at [place] [phone] MD [facility] [place] [address] 10/21/2023 10:30 AM EDT Appointment Nuclear Medicine at [place] [phone] [place] [address] 10/21/2023 11:30 AM EDT Appointment Nuclear Medicine at [place] [phone] [place] [address] 10/21/2023 12:30 PM EDT Appointment Nuclear Medicine at [place] [phone] [place] [address] 10/21/2023 1:30 PM EDT Appointment [place] [address] [place] [address] 10/21/2023 2:30 PM EDT Appointment [place] [address] Mary Reyes [facility] [place] [address] 10/26/2023 4:00 PM EDT Office Visit Cardiology at [address] [address] Jaspreet Kinsey MD [facility] [place] [address] 10/28/2023 9:00 AM EDT Office Visit [place] [address] 10/29/2023 10:00 AM EDT Clinical Support [place] [address] 10/29/2023 10:15 AM EDT Procedure visit [place] [address] 11/01/2023 5:00 PM EDT Office [place] [address] Selene Browning, PhD [facility] [place] [address] 11/22/2023 4:40 PM EDT Office Visit Cardiology at [address] [phone] Porsha Mcdaniels MD [facility] [place] [address] 12/13/2023 10:00 AM EDT Clinical [place] [address]-[address] [facility] [place] [address] documented as of this encounter Procedures Procedure [...] (Bezet) 443 ms MUSE SYSTEM Calculated P Hanna 49 degrees MUSE SYSTEM Calculated R Hanna 63 degrees MUSE SYSTEM Calculated T Hanna -60 degrees MUSE SYSTEM INTERPRETATION Sinus bradycardia [...] dysrhythmias documented in this encounter Care Teams Extractions Technician Relationship Specialty Start Date End Date Polo Pearce PA [address] [place] [address] PCP - General Internal Medicine 06/09/21 documented as of this encounter
--- OUTSIDE RECORDS SUMMARY | 2023-10-05 17:09 | XMS_ITS | Encounter Summary ---
Author Organization [facility] [place] [address] Care Team Providers Care Software Test Manager Name Role Phone Polo Pearce Primary Care Provider [phone] Encounter Details Date Type Department Care Team (Late st Contact Info) Description 06/13/2021 [place] [address] Ralf Mejia MD [facility] [place] [address] Social History Tobacco Use Types Packs/Day Years [...] Referring provider: Jasiel Caicedo MD Patient location: [facility] Past medical history: HLD HTN Asthma Depression ?Micrvascular disease SVT MARYLOU Diastolic heart failure History 51-year-old female with history as noted above who is just admitted to [facility] for evaluation of angina with discharge 06/08/2021. At that time she initially presented to [facility] where she was noted to have a troponin I of 406 which was flat at 411 on repeat and an elevated BNP. EKG showed nonspecific ST changes in the inferolateral leads. She was transferred to [facility] for further evaluation where [...] I and her recent work-up here at [facility] which did not include an ischemic evaluation but did include a transesophageal echocardiogramserial EKGs and serial negative troponins that further work-up at [facility] may be appropriate. Suspect that her [...] possible microvascular angina. Plan: -Continue management at [facility]. -Recommend stress test at [facility]. -Start metoprolol succinate 25 mg daily with follow-up with cardiology and up titration. -Continue medications as prescribed from her recent discharge. -Planning to get serial troponins and EKGs. If these are markedly changing can reassess and consider transfer to [facility] for further [place]. Ralf Mejia MD 06/13/2021 12:05 AM documented in this encounter Plan of Treatment Upcoming Encounters Date Type Department Care Team (Late st Contact Info) Description 10/08/2023 8:30 AM EDT Tech Visit Vascular Lab at [place] [phone] [place] 10/08/2023 9:30 AM EDT Office [place] [address] MD [facility] [place] [address] 10/21/2023 10:30 AM EDT Appointment Nuclear Medicine at [place] [phone] [place] [address] 10/21/2023 11:30 AM EDT Appointment [place] [phone] Mary Reyes [facility] [place] [address] 10/21/2023 12:30 PM EDT Appointment [place] [phone] [place] [address] 10/21/2023 1:30 PM EDT Appointment [place] [address] Mary Reyes APRN [facility] [place] [address] 10/21/2023 2:30 PM EDT Appointment Nuclear Medicine at [place] [phone] Mary Reyes APRN [facility] [place] [address] 10/26/2023 4:00 PM EDT Office Visit Cardiology at [address] [phone] Jaspreet Kinsey MD [facility] [place] [address] 10/28/2023 9:00 AM EDT Office [place] [address] 10/29/2023 10:00 AM EDT Clinical Support [place] [address] 10/29/2023 10:15 AM EDT Procedure [place] [address] 11/01/2023 5:00 PM EDT Office Visit Gastroenterology at [place] [phone] Selene Browning, PhD [facility] [place] [address] 11/22/2023 4:40 PM EDT Office Visit Cardiology at [address] [phone] Porsha Mcdaniels MD [facility] [place] [address] 12/13/2023 10:00 AM EDT Clinical [place] [address] Lucero Romero, [place] [facility] [place] [address] documented as of this encounter Visit Diagnoses Not on filedocumented in this encounter Care Teams Software Test Manager Relationship Specialty Start Date End Date Polo Pearce PA [address] [place] [address] PCP - General Internal Medicine 06/09/21 documented as of this encounter
--- OUTSIDE RECORDS SUMMARY | 2023-10-05 17:09 | XMS_ITS | Encounter Summary ---
Author Organization [facility] [place] [address] Care Team Providers Care Narcotics And/Or Vice Detective Name Role Phone Polo Pearce Primary Care Provider [phone] Encounter Details Date Type Department Care Team (Late st Contact Info) Description 06/11/2021 Telephone Cardiology at [address] [phone] Deja Zaidi PA [facility] [place] [address] Social History Tobacco Use Types Packs/Day Years [...] JOCY Hernandez 06/11/2021 JOCY Hernandez 06/11/2021 Pager [phone] documented in this encounter Plan of Treatment Upcoming Encounters Date Type Department Care Team (Late st Contact Info) Description 10/08/2023 8:30 AM EDT Tech Visit Vascular Lab at [place] [phone] Channing Escobedo [place] 10/08/2023 9:30 AM EDT Office Visit [place] [address] MD [facility] [place] [address] 10/21/2023 10:30 AM EDT Appointment [place] [phone] Mary Reyes [facility] [address] 10/21/2023 11:30 AM EDT Appointment [place] [address] Mary Reyes [facility] [place] [address] 10/21/2023 12:30 PM EDT Appointment [place] [address] Mary Reyes [facility] [place] [address] 10/21/2023 1:30 PM EDT Appointment [place] [address]-1000 Mary Reyes [facility] [place] [address] 10/21/2023 2:30 PM EDT Appointment [place] [address]-1000 Mary Reyes APRN [facility] [place] [address] 10/26/2023 4:00 PM EDT Office Visit Cardiology at [address] [address] Jaspreet Kinsey MD [facility] [place] [address] 10/28/2023 9:00 AM EDT Office Visit [place] [address] 10/29/2023 10:00 AM EDT Clinical Support [place] [address] 10/29/2023 10:15 AM EDT Procedure visit [place] [address] 11/01/2023 5:00 PM EDT Office Visit [place] [address] Selene Browning, [facility] [place] [address] 11/22/2023 4:40 PM EDT Office Visit Cardiology at [address] [phone] Porsha Mcdaniels MD [facility] [place] [address] 12/13/2023 10:00 AM EDT Clinical Support [place] [phone] Lucero Romero, ALVA [facility] [place] [address] documented as of this encounter Visit Diagnoses Not on filedocumented in this encounter Care Teams Narcotics And/Or Vice Detective Relationship Specialty Start Date End Date Polo Pearce PA [address] [place] [address] PCP - General Internal Medicine 06/09/21 documented as of this encounter
--- OUTSIDE RECORDS SUMMARY | 2023-10-05 17:09 | XMS_ITS | Encounter Summary ---
Author Organization [facility] [place] [address] Care Team Providers Care Business Systems Technician Name Role Phone Polo Pearce Primary Care Provider [phone] Encounter Details Date Type Department Care Team (Late st Contact Info) Description 12/30/2021 8:00 PM EDT Ancillary Procedure [place] [phone] Jaspreet Kinsey MD [facility] [place] [address] Social History Tobacco Use Types Packs/Day Years [...] AM EDT Tech [place] [address]1000 Channing Escob[place] 10/08/2023 9:30 AM EDT Office [place] [address] MD [facility] [place] [address] 10/21/2023 10:30 AM EDT Appointment Nuclear Medicine at [place] [phone] Mary Reyes [facility] [place] [address] 10/21/2023 11:30 AM EDT Appointment Nuclear Medicine at [place] [phone] [place] [address] 10/21/2023 12:30 PM EDT Appointment [place] [address]-1000 Mary Reyes [facility] [place] [address] 10/21/2023 1:30 PM EDT Appointment [place] [address]-1000 Mary Reyes [facility] [place] [address] 10/21/2023 2:30 PM EDT Appointment [place] [address]-1000 Mary Reyes [facility] [place] [address] 10/26/2023 4:00 PM EDT Office Visit Cardiology at [address] [address] Jaspreet Kinsey MD [facility] [place] [address] 10/28/2023 9:00 AM EDT Office [place] [address] 10/29/2023 10:00 AM EDT Clinical [place] [address] 10/29/2023 10:15 AM EDT Procedure [place] [address] 11/01/2023 5:00 PM EDT Office [place] [address] Selene Browning, PhD [facility] [place] [address] 11/22/2023 4:40 PM EDT Office Visit Cardiology at [address] [address] Porsha Mcdaniels MD [facility] [place] [address] 12/13/2023 10:00 AM EDT Clinical [place] [address]-[address] [facility] [place] [address] documented as of this encounter Procedures Procedure Name Priority Date/Time Associated Diagnosis Comments FILM LIBRARY STORAGE ONLY CT CHEST Routine 12/30/2021 7:55 PM EDT documented in this encounter Results * Film Library- Storage Only CT Chest (12/30/2021 7:55 PM EDT) Narrative [facility] - 12/30/2021 7:55 PM EDT This exam is auto-finalizing. It's purpose is for storage only. Jaspreet Kinsey MD IMG FILM LIBRARY ORD ERABLES [facility] [place], [place] documented in this encounter Visit Diagnoses Not on filedocumented in this encounter Care Teams Business Systems Technician Relationship Specialty Start Date End Date Polo Pearce PA [address] [place] [address] PCP - General Internal Medicine 06/09/21 documented as of this encounter
--- OUTSIDE RECORDS SUMMARY | 2023-10-05 17:09 | XMS_ITS | Encounter Summary ---
Author Organization [facility] [place] [address] Care Team Providers Care Spinner Concrete Pipe Name Role Phone Polo Pearce Primary Care Provider [phone] Reason for Visit * Reason Onset Date Comments Medication Refill 06/10/2021 Jardiance Encounter Details Date Type Department Care Team (Late st Contact Info) Description 06/10/2021 Refill Cardiology at [address] [phone] Deja Zaidi PA [facility] [place] [address] Medication Refill (Jardiance) Social History Tobacco Use [...] AM EDT Tech [place] [address]-1000 Channing [place] 10/08/2023 9:30 AM EDT Office [place] [address] MD [facility] [place] [address] 10/21/2023 10:30 AM EDT Appointment Nuclear Medicine at [place] [phone] Mary Reyes, [facility] [place] [place] [address] 10/21/2023 11:30 AM EDT Appointment Nuclear Medicine at [address]1000 Mary Reyes [facility] [place] [place] [address] 10/21/2023 12:30 PM EDT Appointment [place] [address] Mary Reyes [facility] [place] [place] [address] 10/21/2023 1:30 PM EDT Appointment [place] [address] Mary Reyes [facility] [place] [address] 10/21/2023 2:30 PM EDT Appointment [place] [address] Mary Reyes [facility] [place] [place] [address] 10/26/2023 4:00 PM EDT Office Visit Cardiology at [address] [place] [address] Jaspreet Kinsey MD [facility] [place] [address] 10/28/2023 9:00 AM EDT Office [place] [address] 10/29/2023 10:00 AM EDT Clinical [place] [address] 10/29/2023 10:15 AM EDT Procedure [place] [address] 11/01/2023 5:00 PM EDT Office [place] [address] Selene Browning, PhD [facility] [place] [address] 11/22/2023 4:40 PM EDT Office Visit Cardiology at [address] [phone] Porsha Mcdaniels MD [facility] [place] [address] 12/13/2023 10:00 AM EDT Clinical Support [place] [address]-[address] [facility] [place] [address] documented as of this encounter Visit Diagnoses Diagnosis Chronic heart failure with preserved ejection fraction documented in this encounter Care Teams Spinner Concrete Pipe Relationship Specialty Start Date End Date Polo Pearce PA [address] [place] [id number] PCP - General Internal Medicine 06/09/21 documented as of this encounter
--- OUTSIDE RECORDS SUMMARY | 2023-10-05 17:09 | XMS_ITS | Encounter Summary ---
[place] [address] Care Team Providers Care Reconstructive Dentist Name Role Phone Polo Pearce Primary Care Provider [phone] Encounter Details Date Type Department Care Team (Late st Contact Info) Description 06/12/2021 External [place] [phone] Social History Tobacco Use Types Packs/Day Years [...] AM EDT Tech [place] [address] Channing Escobedo [place] 10/08/2023 9:30 AM EDT Office Visit Vascular [place] [address]-[address] MD [facility] [place] [address] 10/21/2023 10:30 AM EDT Appointment [place] [address] Mary Reyes [facility] [address] 10/21/2023 11:30 AM EDT Appointment [place] [address] Mary Reyes [facility] [address] 10/21/2023 12:30 PM EDT Appointment [place] [address] Mary Reyes [facility] [address] 10/21/2023 1:30 PM EDT Appointment [place] [address] Mary Reyes [facility] [address] 10/21/2023 2:30 PM EDT Appointment [place] [address] Mary Reyes [facility] [address] 10/26/2023 4:00 PM EDT Office Visit Cardiology at [address] [phone] Jaspreet Kinsey MD [facility] [place] [address] 10/28/2023 9:00 AM EDT Office Visit [place] [address] 10/29/2023 10:00 AM EDT Clinical Support [place] [address] 10/29/2023 10:15 AM EDT Procedure visit [place] [address] 11/01/2023 5:00 PM EDT Office Visit Gastroenterology at [place] [phone] Selene Browning, PhD [facility] [place] [address] 11/22/2023 4:40 PM EDT Office Visit Cardiology at [place] [phone] Porsha Mcdaniels MD [facility] [place] [address] 12/13/2023 10:00 AM EDT Clinical Support [place] [address] Lucero Romero, [facility] [place] [address] documented as of this encounter Procedures Procedure Name Priority Date/Time Associated Diagnosis Comments ECG SCAN Routine 06/12/2021 documented in this encounter Results * Scan Doc: ECG (06/12/2021) Historical Provider MD FLEMING MGR SCAN EX T ORDR/RSLT documented in this encounter Visit Diagnoses Not on filedocumented in this encounter Care Teams Reconstructive Dentist Relationship Specialty Start Date End Date Polo Pearce PA [address] [place] [id number] PCP - General Internal Medicine 06/09/21 documented as of this encounter
--- OUTSIDE RECORDS SUMMARY | 2023-10-05 17:09 | XMS_ITS | Encounter Summary ---
[place] [address] Care Team Providers Care Locksmith Helper Name Role Phone Polo Pearce Primary Care Provider [phone] Encounter Details Date Type Department Care Team (Late st Contact Info) Description 06/10/2021 Telephone Cardiology at [address] [phone] Lashonda Menjivar, RN Social History Tobacco Use [...] prescription for 90 days of Jardiance, to [facility]. Prescription pended. Lashonda Menjivar RN (Jodie), BSN [facility] documented in this encounter Plan of Treatment Upcoming Encounters Date Type Department Care Team (Late st Contact Info) Description 10/08/2023 8:30 AM EDT Tech Visit Vascular Lab at [place] [phone] Channing [place] 10/08/2023 9:30 AM EDT Office Visit Vascular Surgery at [place] [phone] MD [facility] [place] [address] 10/21/2023 10:30 AM EDT Appointment Nuclear Medicine at [place] [phone] [place] [address] 10/21/2023 11:30 AM EDT Appointment Nuclear Medicine at [place] [phone] [place] [address] 10/21/2023 12:30 PM EDT Appointment Nuclear Medicine at [place] [phone] [place] [address] 10/21/2023 1:30 PM EDT Appointment [place] [address] [place] [address] 10/21/2023 2:30 PM EDT Appointment [place] [address]-1000 Mary Reyes [facility] [place] [address] 10/26/2023 4:00 PM EDT Office Visit Cardiology at [address] [address] Jaspreet Kinsey MD [facility] [place] [address] 10/28/2023 9:00 AM EDT Office Visit [place] [address] 10/29/2023 10:00 AM EDT Clinical Support [place] [address] 10/29/2023 10:15 AM EDT Procedure [place] [address] 11/01/2023 5:00 PM EDT Office Visit [place] [address]-1000 Selene Browning, PhD [facility] [place] [address] 11/22/2023 4:40 PM EDT Office Visit Cardiology at [address] [phone] Porsha Mcdaniesl MD [facility] [place] [address] 12/13/2023 10:00 AM EDT Clinical Support [place] [address]-[address] [facility] [place] [address] documented as of this encounter Visit Diagnoses Not on filedocumented in this encounter Care Teams Locksmith Helper Relationship Specialty Start Date End Date Polo Pearce PA [address] [place] [address] PCP - General Internal Medicine 06/09/21 documented as of this encounter
--- OUTSIDE RECORDS SUMMARY | 2023-10-05 17:09 | XMS_ITS | Encounter Summary ---
Author Organization [facility] Address [facility] [place] [address] Care Team Providers Care Hand Molder Name Role Phone Polo Pearce Primary Care Provider [phone] Encounter Details Date Type Department Care Team (Late st Contact Info) Description 09/16/2021 Telephone Cardiology at [address] [place] [address] Jaspreet Kinsey MD [facility] [place] [place] [address] Social History Tobacco Use Types Packs/Day Years [...] so can she have it here at [facility]. She left her work number for calling her back during the day: [phone]. Or you may leave a message on her cell phone: [phone]. documented in this encounter Plan of Treatment Upcoming Encounters Date Type Department Care Team (Late st Contact Info) Description 10/08/2023 8:30 AM EDT Tech [place] [address]-1000 Ch[place] Escob[place] 10/08/2023 9:30 AM EDT Office Visit [place] [address] MD [facility] [place] [address] 10/21/2023 10:30 AM EDT Appointment Nuclear Medicine at [place] [phone] Mary Reyes [facility] [place] [address] 10/21/2023 11:30 AM EDT Appointment [place] [address]-1000 Mary Reyes CAP MACHINE OPERATOR [facility] [place] [address] 10/21/2023 12:30 PM EDT Appointment [place] [address]-1000 Mary Reyes CAP MACHINE OPERATOR [facility] [place] [address] 10/21/2023 1:30 PM EDT Appointment [place] [address]-1000 [place] [address] 10/21/2023 2:30 PM EDT Appointment [place] [address]-1000 [place] [address] 10/26/2023 4:00 PM EDT Office Visit Cardiology at [address] [phone] Jaspreet Kinsey MD [facility] [place] [address] 10/28/2023 9:00 AM EDT Office [place] [address] 10/29/2023 10:00 AM EDT Clinical Support [place] [address] 10/29/2023 10:15 AM EDT Procedure visit [place] [address] 11/01/2023 5:00 PM EDT Office Visit [place] [address]-1000 Selene Browning, PhD [facility] [place] [address] 11/22/2023 4:40 PM EDT Office Visit Cardiology at [address] [address] Porsha Mcdaniels MD [facility] [place] [address] 12/13/2023 10:00 AM EDT Clinical Support [place] [address]-[address] [facility] [place] [address] documented as of this encounter Visit Diagnoses Not on filedocumented in this encounter Care Teams Hand Molder Relationship Specialty Start Date End Date Polo Pearce PA [address] [place] [address] PCP - General Internal Medicine 06/09/21 documented as of this encounter
--- OUTSIDE RECORDS SUMMARY | 2023-10-05 17:09 | XMS_ITS | Encounter Summary ---
Author Organization [facility] [place] [address] Care Team Providers Care Blood Bank Laboratory Professional Name Role Phone Polo Pearce Primary Care Provider [phone] Encounter Details Date Type Department Care Team (Late st Contact Info) Description 12/30/2021 External Results [place] [address] Social History Tobacco Use Types Packs/Day Years [...] AM EDT Tech [place] [address] Channing Escobedo [place] 10/08/2023 9:30 AM EDT Office Visit [place] [address]-[address] MD [facility] [place] [address] 10/21/2023 10:30 AM EDT Appointment [place] [address] Mary Reyes [facility] [place] [address] 10/21/2023 11:30 AM EDT Appointment [place] [address] Mary Reyes [facility] [place] [address] 10/21/2023 12:30 PM EDT Appointment [place] [address] Mary Reyes [facility] [place] [address] 10/21/2023 1:30 PM EDT Appointment [place] [address] Mary Reyes [facility] [place] [address] 10/21/2023 2:30 PM EDT Appointment [place] [address] Mary Reyes [facility] [place] [address] 10/26/2023 4:00 PM EDT Office Visit Cardiology at [address] [phone] Jaspreet Kinsey MD [facility] [place] [address] 10/28/2023 9:00 AM EDT Office [place] [address] 10/29/2023 10:00 AM EDT Clinical [place] [address] 10/29/2023 10:15 AM EDT Procedure [place] [address] 11/01/2023 5:00 PM EDT Office [place] [address] Selene Browning, PhD [facility] [place] [address] 11/22/2023 4:40 PM EDT Office [place] [address] Porsha Mcdaniels MD [facility] [place] [address] 12/13/2023 10:00 AM EDT Clinical [place] [address] Lucero Romero, AL[facility] [place] [address] documented as of this encounter Procedures Procedure Name Priority Date/Time Associated Diagnosis Comments ECG SCAN Routine 12/30/2021 documented in this encounter Results * Scan Doc: ECG (12/30/2021) Historical Provider MD FLEMING MGR SCAN EX T ORDR/RSLT documented in this encounter Visit Diagnoses Not on filedocumented in this encounter Care Teams Blood Bank Laboratory Professional Relationship Specialty Start Date End Date Polo Pearce PA [address] [place] [address] PCP - General Internal Medicine 06/09/21 documented as of this encounter
--- OUTSIDE RECORDS SUMMARY | 2023-10-05 17:09 | XMS_ITS | Encounter Summary ---
Author Organization [facility] Address [facility] [place] [address] Care Team Providers Care Transplant Rn Name Role Phone Polo Pearce Primary Care Provider [phone] Encounter Details Date Type Department Care Team (Late st Contact Info) Description 08/08/2021 Orders Only Cardiology at [address] [address] Umberto Joy PA [facility] [place] [address] AVNRT (AV makayla re-entry tachycardia) (Primary Dx); [...] AM EDT Tech [place] [address] Channing Escobedo [place] 10/08/2023 9:30 AM EDT Office Visit [place] [address] MD [facility] [place] [address] 10/21/2023 10:30 AM EDT Appointment Nuclear Medicine at [place] [phone] Mary Reyes [facility] [place] [address] 10/21/2023 11:30 AM EDT Appointment Nuclear Medicine at [address]1000 [place] [address] 10/21/2023 12:30 PM EDT Appointment [place] [address] Mary Reyes [facility] [place] [address] 10/21/2023 1:30 PM EDT Appointment [place] [address] Mary Reyes [facility] [place] [address] 10/21/2023 2:30 PM EDT Appointment [place] [address] Mary Reyes [facility] [place] [address] 10/26/2023 4:00 PM EDT Office Visit Cardiology at [address] [place] [address] Jaspreet Kinsey MD [facility] [place] [address] 10/28/2023 9:00 AM EDT Office [place] [address] 10/29/2023 10:00 AM EDT Clinical [place] [address] 10/29/2023 10:15 AM EDT Procedure [place] [address] 11/01/2023 5:00 PM EDT Office [place] [address] Selene Browning, PhD [facility] [place] [address] 11/22/2023 4:40 PM EDT Office Visit Cardiology at [address] [phone] Porsha Mcdaniels MD [facility] [place] [address] 12/13/2023 10:00 AM EDT Clinical [place] [address]-[address] [facility] [place] [address] documented as of this encounter Visit Diagnoses Diagnosis AVNRT (AV makayla re-entry tachycardia)- Primary Other specified cardiac dysrhythmias Heart failure with preserved ejection fraction, unspecified HF chronicity SVT (supraventricular tachycardia) Other specified cardiac dysrhythmias documented in this encounter Care Teams Transplant Rn Relationship Specialty Start Date End Date Polo Pearce PA [address] [place] [address] PCP - General Internal Medicine 06/09/21 documented as of this encounter
--- OUTSIDE RECORDS SUMMARY | 2023-10-05 17:09 | XMS_ITS | Encounter Summary ---
Author Organization [facility] Address [facility] [place] [address] Care Team Providers Care Molecular Genetic Pathologist Name Role Phone Polo Pearce Primary Care Provider [phone] Reason for Visit * Reason Comments Congestive Heart Failure HFpEF Palpitations SVT/AVNRT * Consultation (Routine) - Closed Specialty Diagnoses / Procedures Referred By Contac t Referred To Contact Cardiology Diagnoses HFp EF Procedures NEW PATIENT Mario Hallman MD [facility] [place] [address] Jaspreet Kinsey MD [facility] [place] [address] Referral ID Status Reason Start Date Expiration Date Visits Re quested Visits Authorized [id number] Closed 07/23/2021 07/23/2022 1 1 Encounter Details Date Type Department Care Team (Late st Contact Info) Description 07/23/2021 8:20 AM EDT Office Visit Cardiology at [address] [phone] Jaspreet Kinsey MD [facility] [place] [address] Heart failure with preserved ejection fraction, unspecified [...] preserved ejection fraction 05/2021: subacute, [facility] to [facility] [...] needed. ??? fluticasone propionate (FLONASE) 50 mcg/actuation [place], Suspension 1 spray by Each Nare route [...] for hfpef and svt She presented to [facility] end of May with subacute RUQ [...] AM EDT Tech [place] [phone] [place] [place] 10/08/2023 9:30 AM EDT Office [place] [phone] MD [facility] [place] [place] [address] 10/21/2023 10:30 AM EDT Appointment [place] [phone] Mary Reyes [facility] [place] [address] 10/21/2023 11:30 AM EDT Appointment [place] [phone] [place] [address] 10/21/2023 12:30 PM EDT Appointment [place] [address] Mary Reyes, [place] [address] 10/21/2023 1:30 PM EDT Appointment [place] [address] Mary Reyes, [place] [address] 10/21/2023 2:30 PM EDT Appointment [place] [address] Mary Reyes, [place] [address] 10/26/2023 4:00 PM EDT Office Visit Cardiology at [address] [phone] Jaspreet Kinsey MD [facility] [place] [place] [address] 10/28/2023 9:00 AM EDT Office [place] [address] 10/29/2023 10:00 AM EDT Clinical [place] [address] 10/29/2023 10:15 AM EDT Procedure [place] [address] 11/01/2023 5:00 PM EDT Office [place] [address] Selene Browning, PhD [facility] [place] [address] 11/22/2023 4:40 PM EDT Office Visit Cardiology at [address] [phone] Porsha Mcdaniels MD [facility] [place] [place] [address] 12/13/2023 10:00 AM EDT Clinical [place] [phone] [facility] [place] [address] documented as of this encounter Visit Diagnoses Diagnosis Heart failure with preserved ejection fraction, unspecified HF chronicity SVT (supraventricular tachycardia) Other specified cardiac dysrhythmias documented in this encounter Care Teams Molecular Genetic Pathologist Relationship Specialty Start Date End Date Polo Pearce PA [address] [place] [address] PCP - General Internal Medicine 06/09/21 documented as of this encounter
--- OUTSIDE RECORDS SUMMARY | 2023-10-05 17:09 | XMS_ITS | Encounter Summary ---
Author Organization [facility] [place] [address] Care Team Providers Care First Coat Sander Name Role Phone Polo Pearce Primary Care Provider [phone] Reason for Referral * Consultation (Routine) - Closed Specialty Diagnoses / Procedures Referred By Contact Referred To Contact Electrophysiology / Cardiology Diagnoses Supraventricular tachycardia evaluation for AVNRT ablation due to symptomatic SVT with myocardial injury Sandy Serna MD [facility] GENERAL [place] [address] [facility] Cardiology [address] [place] [phone] Referral ID Status Reason Start Date Expiration Date V isits Requested Visits Authorized [id number] Closed Consult, Test & Treat 06/14/2021 06/14/2022 1 1 Reason for Visit * Auth/Cert Specialty Diagnoses / Procedures Referred By Jayant harris Referred To Contact Diagnoses NSTEMI (non-ST elevated myocardial infarction) NSTEMI Procedures EMERGENCY IPI Referral ID Status Reason Start Date Expiration Date Visits Re quested Visits Authorized [id number] 1 1 Encounter Details Date Type Department Care Team (Latest Contact Info) Description 06/13/2021 12:35 PM EDT - 06/14/2021 1:22 PM EDT Hospital Encounter [place] [phone] Jose Rodrigues MD [facility] DR CARDIOLOGY [place] [address] Chest pain, unspecified type; Supraventricular tachycardia; Chest [...] depressions on EKG. Indira was transferred to [facility] for further evaluation. ?? Of note, the patient was just released from [facility] for chest pain on Wednesday06/09/2021. During that [...] at 0.04 consistent with myocardial injury pattern. [facility] was not pursued as the patient was CP free, has suspected microvascular disease from [facility] 18 months ago and episode was [...] 8:20 AM Jaspreet Kinsey MD Cardiology at [place] Arrive at: [facility] [address] [phone] Future Orders Complete By Expires NM PET CT Cardiac Pharmacologic Stress and Rest [[id number] Custom] 06/14/2021 10/14/2021 Process Instructions: Scheduling Instructions: Questions: Where will study be performed?: [facility] Radiology Reason for exam and clinical history: concern for microvascular disease vs CAD Clinical information / chavis questions for radiologist: Is the patient ?: No Initial treatment or subsequent treatment?: Stat read required?: Does patient require sedation?: GA rationale: Date of injury if applicable: Requested Time: NM PET CT Cardiac Pharmacologic Stress CT Component [[id number] Custom] 06/14/2021 10/14/2021 Process Instructions: Scheduling Instructions: Questions: Where will study be performed?: [facility] Radiology Reason for exam and clinical history: Study performed for attenuation correction of the stress test. Nuclear Pharmacologic Stress Cardiology (PET CT Mobile) [[id number] CPT(R)] 06/14/2021 10/14/2021 Process Instructions: Order [id number], NM myocardial perfussion scan, pharmacologic, should also be placed for the radiologyportion of the test. Scheduling Instructions: Cardiac perfusion (Stress and Lexiscan) - NPO after midnight, medication instructions per referringphysician. Avoidance of all caffeinated and decaffeinated products (No coffee, teas, chocolate, or cola drinks) for at least 12 hours prior to exam. Questions: Where will study be performed?: [facility] Clinics Does the patient have a device?: [...] Center 07/23/2021 8:20 AM Jaspreet Kinsey MD [facility] Cardio [facility] Your Inpatient Medical Team at [facility] Name(s) of your inpatient provider(s): Attending - Jose Rodrigues MD Fellow - Brody Bernard MD Resident - Sandy Serna MD Scratch Polisher - Sha Vale MD Your Primary Care Provider: JOCY Franco [phone] For questions regarding this document or issues relating to this hospitalization on the Medical Service, please contact your inpatient physician through the [facility] Diabetes Clinical Manager . Issues afterhours and on weekends will be handled by the Hospitalist staff on-call. For questions regarding this document or issues relating to this hospitalization on the Medical Service, please contact your inpatient physician through the [facility] Diabetes Clinical Manager . Issues afterhours and on weekends will be handled by the Filter Changer staff on-call. Signed: Sandy Serna Internal Medicine PGY-3 Cardiovascular Medicine S2 Team Pager [phone] documented in this encounter Discharge Instructions * [...] Center 07/23/2021 8:20 AM Jaspreet Kinsey MD [facility] Cardio [facility] Your Inpatient Medical Team at [facility] Name(s) of your inpatient provider(s): Attending - Jose Rodrigues MD Fellow - Brody Bernard MD Resident - Sandy Serna MD Scratch Polisher - Sha Vale MD Your Primary Care Provider: JOCY Franco [phone] For questions regarding this document or issues relating to this hospitalization on the Medical Service, please contact your inpatient physician through the [facility] Diabetes Clinical Manager . Issues afterhours and on weekends will [...] as needed. fluticasone propionate (FLONASE) 50 mcg/actuation [place], Suspension 1 spray by Each Nare route [...] FORWARD: possible cardiac cath pain management monitor environmental monitoring technician I/O discharge planning as appropriate INDIVIDUALIZED FALL [...] JOHN PCP: JOCY Franco PCP phone #: [phone] ID/Chief Complaint: Indira Roque is a 51 y.o. with hx of HFpEF, MARYLOU, who is admitted from [facility] with associated chest pain last night History [...] depressions on EKG. Indira was transferred to [facility] for further evaluation. Of note, the patient was just released from [facility] for chest pain on Wednesday06/09/2021. During that [...] DAILY ??? fluticasone propionate (FLONASE) 50 mcg/actuation [place], Suspension 1 spray, Each Nare, DAILY ??? [...] ??? Clobetasol Rash Family History: Father from [place] s/p multiple coronary stents at Social History: [...] at coronary flow reserve Jose Rodrigues MD, [facility] Section of Cardiovascular Medicine [facility] Vice President Salesclinical aide Formerly [facility] [employer] [facility] documented in this encounter Plan of Treatment Upcoming Encounters Date Type Department Care Team (Late st Contact Info) Description 10/08/2023 8:30 AM EDT Tech Visit Vascular Lab at [place] [phone] [place]ob[place] 10/08/2023 9:30 AM EDT Office [place] [phone] MD [facility] [place] [address] 10/21/2023 10:30 AM EDT Appointment Nuclear Medicine at [place] [phone] [place] [address] 10/21/2023 11:30 AM EDT Appointment [place] [phone] [place] [address] 10/21/2023 12:30 PM EDT Appoint[place] [phone] Mary Reyes [facility] [place] [address] 10/21/2023 1:30 PM EDT Appointment [place] [phone] Mary Reyes [facility] [place] [address] 10/21/2023 2:30 PM EDT Appointment [place] [phone] Mary Reyes APRN [facility] [place] [address] 10/26/2023 4:00 PM EDT Office Visit Cardiology at [address] [phone] Jaspreet Kinsey MD [facility] [place] [address] 10/28/2023 9:00 AM EDT Office Visit [place] [address] 10/29/2023 10:00 AM EDT Clinical Support [place] [address] 10/29/2023 10:15 AM EDT Procedure visit [place] [address] 11/01/2023 5:00 PM EDT Office Visit Gastroenterology at [place] [phone] Selene Browning, PhD [facility] PS[place] [address] 11/22/2023 4:40 PM EDT Office Visit Cardiology at [address] [phone] Porsha Mcdaniels MD [facility] [place] [address] 12/13/2023 10:00 AM EDT Clinical [place] [phone] [facility] [place] [address] Scheduled Referrals Name Type Priority Associated Diagnoses [...] Chest pain, unspecified type RAPID COVID-19 PCR ([facility]) Routine 06/13/2021 1:09 PM EDT documented in this encounter Results * Magnesium (06/14/2021 5:13 AM EDT) Magnesium 0.90 0.69 - 1.07 mmol/L [facility] Blood Venous Draw / Unknown 06/14/2021 5:13 AM EDT 06/14/2021 5:25 AM EDT Narrative Resulting Agency Comment Spec In Lab Sandy Serna MD CHEMISTRY ORDER ARABELLA [facility] [place] [address] * (ABNORMAL) Troponin (06/14/2021 5:13 AM EDT) Troponin-T 0.04(H) 0.00 - 0.00 ng/mL [facility] Comment: The 99th percentile for Troponin T is less than 0.01 ng/mL, any detectable cTnT concentration using this assay should be considered elevated. According to the third universal definition of myocardial infarction the following criteria with a clinical presentation consistent with acute myocardial ischemia meets the diagnosis for a myocardial infarction ([place]). Detection of a rise and/or fall of cTnT, with at least one value greater than the 99th percentile (> or = 0.01) and with at least one of the following ?? Symptoms of ischemia ?? New or presumed new significant YC-vxtyhim-Z wave (ST-T) changes or new left bundle [...] additional sample may be indicated. Reference: Third [place] Definition of Myocardial Infarction. Journal of the [place] [employer] 2012;60:1581-98 Blood 06/14/2021 5:13 AM EDT 06/14/2021 5:19 AM EDT Narrative Resulting Agency Comment Spec In Lab Jose Rodrigues MD CHEMISTRY ORDERABLES [facility] [place] [address] * Heparin (unfractionated) Level (06/14/2021 5:13 AM EDT) Heparin UFH Level 0.66 IU/mL [facility] Comment: Heparin (anti-Xa) levels should [...] Lab Jose Rodrigues MD HEMATOLOGY ORDERABLE S [facility] [place] [address] * Differential, Automated (06/14/2021 5:13 AM EDT) Neutrophils % 62.5 % [facility] Neutr Abs (ANC) 4.36 1.70 - 6.10 x10(3)/[facility] LABORATORY Lymphocytes % 24.1 % [facility] Lymphocytes Abs 1.7 0.9 - 3.2 x10(3)/[facility] LABORATORY Monocytes % 9.2 % [facility] Monocyte Abs 0.6 0.3 - 0.9 x10(3)/[facility] Eosinophils % 2.9 % [facility] Eosinophils Abs 0.2 0.0 - 0.4 x10(3)/[facility] Basophils % 1.0 % [facility] Basophils Abs 0.1 0.0 - 0.1 x10(3)/[facility]ORY [...] - 0.04 x10(3)/[facility] Blood 06/14/2021 5:13 AM EDT 06/14/2021 5:19 AM EDT Narrative Resulting Agency Comment Spec In Lab Sha Vale MD HEMATOLOGY ORDERABLE S Performing Organization Address City/[facility] Co de Phone Number [facility] [place] [address] * (ABNORMAL) Hemogram (06/14/2021 5:13 AM EDT) WBC 7.0 4.0 - 9.5 x10(3)/[facility] RBC 4.94 4.00 - 5.21 x10(6)/[facility] Hemoglobin 15.2 11.7 - 15.5 g/dL [facility] Hematocrit 46.5(H) 35.7 - 45.8 % [facility] MCV 94.1 82.6 - 94.4 fL [facility] MCH 30.8 27.1 - 32.0 pg [facility] MCHC 32.7 31.7 - 35.0 g/dL [facility] Platelets 252 145 - 357 x10(3)/[facility] LABORATORY RDWSD 48.5(H) 37.0 - 46.0 [facility]ORY RDWCV 14.2(H) 11.5 - 14.1 % [facility] MPV 10.4 7.6 - 12.9 [facility] nRBC % Auto 0.0 % [facility] nRBC Abs Auto 0.000 0.000 - 0.000 x10(3)/[facility] Blood 06/14/2021 5:13 AM EDT 06/14/2021 5:19 AM EDT Narrative Resulting Agency Comment Spec In Lab Sha Vale MD HEMATOLOGY ORDERABLE S [facility] [place] [address] * (ABNORMAL) Basic Metabolic Panel (non-fasting) (06/14/2021 5:13 AM EDT) Glucose Lvl 98 65 - 199 mg/dL [facility] Comment:Diabetes: >=200 mg/d L plus symptoms BUN 21(H) 8 - 18 mg/dL [facility] Creatinine 0.80 0.70 - 1.20 mg/dL [facility] [...] questions. Chloride 106 98 - 107 mmol/L [facility] CO2 19(L) 22 - 31 mmol/L [facility] Anion Gap 13 5 - 15 mmol/L [facility] Calcium 9.0 8.5 - 10.5 mg/dL [facility] Estimated GFR 85 >=60 mL/min/1. 73 m?? [facility] Comment: This patient? s estimated [...] Rodrigues MD CHEMISTRY ORDERABLES Performing Organization Address City/[facility]/ZIP Co de Phone Number [facility] [place] [address] * (ABNORMAL) Troponin (06/13/2021 9:41 PM EDT) Troponin-T 0.04(H) 0.00 - 0.00 ng/mL [facility] Comment: The 99th percentile for Troponin T is less than 0.01 ng/mL, any detectable cTnT concentration using this assay should be considered elevated. According to the third universal definition of myocardial infarction the following criteria with a clinical presentation consistent with acute myocardial ischemia meets the diagnosis for a myocardial infarction ([place]). Detection of a rise and/or fall of cTnT, with at least one value greater than the 99th percentile (> or = 0.01) and with at least one of the following ?? Symptoms of ischemia ?? New or presumed new significant TB-paqkxql-Z wave (ST-T) changes or new left bundle [...] additional sample may be indicated. Reference: Third [place] Definition of Myocardial Infarction. Journal of the [place] [employer] 2012;60:1581-98 Blood 06/13/2021 9:41 PM EDT 06/13/2021 9:55 PM EDT Narrative Resulting Agency Comment Spec In Lab Jose Rodrigues MD CHEMISTRY ORDERABLES Performing Organization Address City/[facility]/ZIP Co de Phone Number [facility] [place] [address] * Heparin (unfractionated) Level (06/13/2021 9:41 PM EDT) Heparin UFH Level 0.33 IU/mL [facility] Comment: Heparin (anti-Xa) levels should [...] HEMATOLOGY ORDERABLE S Performing Organization Address City/State/[facility] Co de Phone Number [facility] [place] [address] * XR Chest PA & Lateral (Generic) [...] questions please contact the health child care worker that requested your imaging first. ? Narrative [...] have questions please contactthe health child care worker that requested your imaging first. Electronically signed by: ZENAIDA TAVARES [facility] ([phone]),at 06/14/2021 8:08 AM Jose Rodrigues MD IMG DX ORDERABLES * (ABNORMAL) Troponin (06/13/2021 6:40 PM EDT) Troponin-T 0.04(H) 0.00 - 0.00 ng/mL [facility] Comment: The 99th percentile for Troponin T is less than 0.01 ng/mL, any detectable cTnT concentration using this assay should be considered elevated. According to the third universal definition of myocardial infarction the following criteria with a clinical presentation consistent with acute myocardial ischemia meets the diagnosis for a myocardial infarction ([place]). Detection of a rise and/or fall of cTnT, with at least one value greater than the 99th percentile (> or = 0.01) and with at least one of the following ?? Symptoms of ischemia ?? New or presumed new significant CR-zwievag-E wave (ST-T) changes or new left bundle [...] additional sample may be indicated. Reference: Third [place] Definition of Myocardial Infarction. Journal of the [place] [employer] 2012;60:1581-98 Blood 06/13/2021 6:40 PM EDT 06/13/2021 6:46 PM EDT Narrative Resulting Agency Comment Spec In Lab Jose Rodrigues MD CHEMISTRY ORDERABLES Performing Organization Address [facility] Co de Phone Number [facility] [place] [address] * T4, free (06/13/2021 3:26 PM EDT) Free T4 1.08 0.93 - 1.70 ng/dL [facility] Comment: Reference Interval (ng/dL): Females: ??First Trimester: 0.97-1.68 ??Second Trimester: 0.77-1.51 ??Third Trimester: 0.77-1.49 Blood 06/13/2021 3:26 PM EDT 06/13/2021 3:52 PM EDT Narrative Resulting Agency Comment Spec In Lab Sha Vale MD CHEMISTRY ORDERABLES Performing Organization Address [facility] Co de Phone Number [facility] [place] [address] * Heparin (unfractionated) Level (06/13/2021 3:26 PM EDT) Heparin UFH Level <0.04 IU/mL [facility] Comment: Specimen drawn more than [...] HEMATOLOGY ORDERABLE S Performing Organization Address City/[facility]/ZIP Co de Phone Number [facility] [place] [address] * Bilirubin, Direct (06/13/2021 3:26 PM EDT) Bili, Direct 0.1 0.0 - 0.3 mg/dL [facility] Blood Venous Draw / Unknown 06/13/2021 3:26 PM EDT 06/13/2021 3:39 PM EDT Narrative Resulting Agency Comment Spec In Lab Sha Vale MD CHEMISTRY ORDERABLES Performing Organization Address [facility]/ZIP Co de Phone Number [facility] [place] [address] * (ABNORMAL) Comprehensive metabolic panel (non-fasting) (06/13/2021 3:26 PM EDT) Glucose Lvl 77 65 - 199 mg/dL [facility] Comment:Diabetes: >=200 mg/d L plus symptoms BUN 20(H) 8 - 18 mg/dL [facility] Creatinine 0.88 0.70 - 1.20 mg/dL [facility] [...] questions. Chloride 102 98 - 107 mmol/L [facility] CO2 17(L) 22 - 31 mmol/L [facility] Anion Gap 18(H) 5 - 15 mmol/L [facility] Calcium 9.2 8.5 - 10.5 mg/dL [facility] Total Protein 7.4 6.1 - 8.0 g/dL [facility] Albumin 4.0 3.2 - 5.2 g/dL [facility] AST 44(H) 0 - 30 unit/L [facility] ALT 31(H) 0 - 30 unit/L [facility] Alk Phos 70 35 - 105 unit/L [facility] Total Bilirubin 0.4 0.2 - 1.3 mg/dL [facility] Estimated GFR 76 >=60 mL/min/1. 73 m?? [facility] Comment: This patient? s estimated [...] Vale MD CHEMISTRY ORDERABLES Performing Organization Address City/[facility]/ZIP Co de Phone Number [facility] [place] [address] * (ABNORMAL) pro-Brain Natriuretic Peptide (06/13/2021 3:26 PM EDT) ProBNP 2,479(H) <=124 pg/mL [facility] Blood Venous Draw / Unknown 06/13/2021 3:26 PM EDT 06/13/2021 3:39 PM EDT Narrative Resulting Agency Comment Spec In Lab Sha Vale MD CHEMISTRY ORDERABLES Performing Organization Address [facility] Co de Phone Number [facility] [place] [address] * Magnesium (06/13/2021 3:26 PM EDT) Magnesium 0.93 0.69 - 1.07 mmol/L [facility] Blood Venous Draw / Unknown 06/13/2021 3:26 PM EDT 06/13/2021 3:39 PM EDT Narrative Resulting Agency Comment Spec In Lab Sha Vale MD CHEMISTRY ORDERABLES Performing Organization Address City/[facility]/ZIP Co de Phone Number [facility] [place] [address] * Phosphorus (06/13/2021 3:26 PM EDT) Phosphorus 3.6 2.5 - 4.5 mg/dL [facility] Blood Venous Draw / Unknown 06/13/2021 3:26 PM EDT 06/13/2021 3:39 PM EDT Narrative Resulting Agency Comment Spec In Lab Sha Vale MD CHEMISTRY ORDERABLES Performing Organization Address City/[facility]/ZIP Co de Phone Number [facility] [place] [address] * APTT (06/13/2021 3:26 PM EDT) PTT 29 25 - 37 sec [facility] [...] HEMATOLOGY ORDERABLE S Performing Organization Address [facility] Co de Phone Number [facility] [place] [address] * Prothrombin Time (06/13/2021 3:26 PM EDT) PT 12.4 9.4 - 12.5 sec [facility] INR 1.1 [facility] Comment: An [...] HEMATOLOGY ORDERABLE S Performing Organization Address [facility]/ZIP Co de Phone Number [facility] [place] [address] * (ABNORMAL) TSH [place] (06/13/2021 3:26 PM EDT) TSH 6.47(H) 0.27 - 4.20 mcIU/mL [facility] Comment: Reference Interval (mcIU/mL): Females: ??First Trimester: 0.23-3.88 ??Second Trimester: 0.22-3.90 ??Third Trimester: 0.44-4.66 Blood 06/13/2021 3:26 PM EDT 06/13/2021 3:37 PM EDT Narrative Resulting Agency Comment Spec In Lab Jose Rodrigues MD CHEMISTRY ORDERABLES [facility] [place] [address] * Differential, Automated (06/13/2021 3:26 PM EDT) Neutrophils % 64.4 % [facility] Neutr Abs (ANC) 4.05 1.70 - 6.10 x10(3)/[facility] Lymphocytes % 22.6 % [facility] Lymphocytes Abs 1.4 0.9 - 3.2 x10(3)/[facility] Monocytes % 10.0 % [facility] Monocyte Abs 0.6 0.3 - 0.9 x10(3)/[facility] Eosinophils % 1.8 % [facility] Eosinophils Abs 0.1 0.0 - 0.4 x10(3)/[facility] Basophils % 1.0 % [facility] Basophils Abs 0.1 0.0 - 0.1 x10(3)/[facility] Immature Gran % 0.20 % [facility] Comment: Immature granulocytes(IG's)percentage and absolute count will include metamyelocytes, myelocytes, and promyelocytes. Blood smears from CBCs yielding IG's will be scanned manually for concordance. If this scan disagrees with the automated IG or if promyelocytes are noted, a manual differential will be performed. Shonda Gran Abs 0.01 0.00 - 0.04 x10(3)/[facility] Blood 06/13/2021 3:26 PM EDT 06/13/2021 3:37 PM EDT Narrative Resulting Agency Comment Spec In Lab Sha Vale MD HEMATOLOGY ORDERABLE S [facility] [place] [address] * (ABNORMAL) Hemogram (06/13/2021 3:26 PM EDT) Pathologist [facility] WBC 6.3 4.0 - 9.5 x10(3)/[facility] RBC 5.27(H) 4.00 - 5.21 x10(6)/[facility] Hemoglobin 16.1(H) 11.7 - 15.5 g/dL [facility] Hematocrit 49.7(H) 35.7 - 45.8 % [facility] MCV 94.3 82.6 - 94.4 fL [facility] MCH 30.6 27.1 - 32.0 pg [facility] MCHC 32.4 31.7 - 35.0 g/dL [facility] Platelets 237 145 - 357 x10(3)/[facility]ORY RDWSD 49.1(H) 37.0 - 46.0 [facility] RDWCV 14.2(H) 11.5 - 14.1 % [facility] MPV 11.3 7.6 - 12.9 [facility] nRBC % Auto 0.0 % [facility] nRBC Abs Auto 0.000 0.000 - 0.000 x10(3)/[facility] LABORATORY Blood 06/13/2021 3:26 PM EDT 06/13/2021 3:37 PM EDT Narrative Resulting Agency Comment Spec In Lab Sha Vale MD HEMATOLOGY ORDERABLE S [facility] [place] [address] * (ABNORMAL) Troponin (06/13/2021 3:26 PM EDT) Pathologist [facility] Troponin-T 0.04(H) 0.00 - 0.00 ng/mL [facility] Comment: The 99th percentile for Troponin T is less than 0.01 ng/mL, any detectable cTnT concentration using this assay should be considered elevated. According to the third universal definition of myocardial infarction the following criteria with a clinical presentation consistent with acute myocardial ischemia meets the diagnosis for a myocardial infarction (GA). Detection of a rise and/or fall of cTnT, with at least one value greater than the 99th percentile (> or = 0.01) and with at least one of the following ?? Symptoms of ischemia ?? New or presumed new significant UI-gxildhi-Q wave (ST-T) changes or new left bundle [...] additional sample may be indicated. Reference: Third [place] Definition of Myocardial Infarction. Journal of the [place] [employer] 2012;60:1581-98 Blood 06/13/2021 3:26 PM EDT 06/13/2021 3:37 PM EDT Narrative Resulting Agency Comment Spec In Lab Jose Rodrigues MD CHEMISTRY ORDERABLES [facility] [place] [address] * EKG 12 Lead (06/13/2021 2:18 PM EDT) Ventricular rate 48 BPM MUSE SYSTEM Atrial Rate 48 BPM MUSE SYSTEM P-R Interval 196 ms MUSE SYSTEM QRS Duration 84 ms MUSE SYSTEM Q-T Interval 498 ms MUSE SYSTEM QTC Calculated (Bezet) 444 ms MUSE SYSTEM Calculated P Bernice 1 degrees MUSE SYSTEM Calculated R Bernice 27 degrees MUSE SYSTEM Calculated T Bernice -27 degrees MUSE SYSTEM INTERPRETATION Sinus bradycardia Nonspecific ST and T wave abnormality Abnormal ECG When compared with ECG of 07-JUN-2021 16:33, No significant change was found I personally reviewed the tracing and edited the fellows interpretation Confirmed by fellow Jaspreet Grimm ([id number]) on 06/16/2021 1:34:45 PM Confirmed by MD Angelo Danette ([id number]) on 06/16/2021 1:39:20 PM MUSE SYSTEM 06/13/2021 2:18 PM EDT 06/16/2021 1:39 PM EDT Jose Rodrigues MD ECG ORDERABLES MUSE SYSTEM * COVID-19 PCR (06/13/2021 1:09 PM EDT) SARS-CoV-2 RNA PCR Not Detected Not Detected [facility] Comment: This result should be [...] using the Simplexa COVID-19 Direct Assay by Sravnikupi as authorized by the FDA issued Emergency [...] Department of Pathology and Laboratory Medicine at [facility], certified under the Clinical Laboratory Improvement [...] fact sheets at the following FDA website: https://www.fda.gov/medical-devices/hoiswbylfsr-fybtgrz-4833-tzrdn-06-qxbketidj- use-a vksykpbwxjeex-jecwnep-hdudxdu/bicpr-iaamdqthzas-chvt SARS-CoV-2 Source PET SITTER Swab [facility] LABORATORY Nasopharyngeal Swab 06/14/19 1:09 PM EDT 06/13/2021 1:45 PM EDT Comment:Symptoms->Surveillan ce Narrative Resulting Agency Comment Spec In Lab Jose Rodrigues MD MICROBIOLOGY - GENER AL ORDERABLES [facility] [place] [address] documented in this encounter Visit Diagnoses Diagnosis [...] Routine documented in this encounter Care Teams First Coat Sander Relationship Specialty Start Date End Date Polo Pearce PA [address] [place] [address] PCP - General Internal Medicine 06/09/21 documented as of this encounter
--- OUTSIDE RECORDS SUMMARY | 2023-10-05 17:09 | XMS_ITS | Encounter Summary ---
Author Organization [facility] Address [facility] [place] [address] Care Team Providers Care Primer Waterproofing Machine Adjuster Name Role Phone Polo Pearce Primary Care Provider [phone] Encounter Details Date Type Department Care Team (Late st Contact Info) Description 12/31/2021 Orders Only Cardiology at [address] [phone] Umberto Joy PA [facility] [place] [address] SVT (supraventricular tachycardia) Social History Tobacco Use [...] AM EDT Tech [place] [address] Channing Escobedo [place] 10/08/2023 9:30 AM EDT Office Visit [place] [address] MD [facility] [place] [address] 10/21/2023 10:30 AM EDT Appointment Nuclear Medicine at [place] [phone] [place] [address] 10/21/2023 11:30 AM EDT Appointment [place] [phone] [place] [address] 10/21/2023 12:30 PM EDT Appointment [place] [phone] Mary Reyes [place] [address] 10/21/2023 1:30 PM EDT Appointment [place] [phone] Mary Reyes [place] [address] 10/21/2023 2:30 PM EDT Appointment [place] [phone] Mary Reyes [place] [address] 10/26/2023 4:00 PM EDT Office Visit Cardiology at [address] [phone] Jaspreet Kinsey MD [facility] [place] [address] 10/28/2023 9:00 AM EDT Office Visit [place] [address] 10/29/2023 10:00 AM EDT Clinical Support [place] [address] 10/29/2023 10:15 AM EDT Procedure visit [place] [address] 11/01/2023 5:00 PM EDT Office Visit Gastroenterology at [place] [phone] Selene Browning, PhD [facility] [place] [address] 11/22/2023 4:40 PM EDT Office Visit Cardiology at [address] [phone] Porsha Mcdaniels MD [facility] [place] [address] 12/13/2023 10:00 AM EDT Clinical Support [place] [phone] Lucero Romero, ALVA [facility] [place] [address] documented as of this encounter Procedures Procedure [...] Lovell. Interpretation Summary Limited echocardiogram performed by contracting analyst fellow. 1. LV appears globally hypokinetic. Visually estimated LVEF 40%. 2. RV is not well visualized, but appears mildly reduced in global systolic function. Recommend comprehensive echo. Procedure Note Willy Gómez MD - 01/05/2022 Echocardiogram Report Name: LOIDA ROQUE Study Date: 12/30/2021 11:29PM : 1970 Age: 51 yrs Gender: Female Interpreting Fellow: Ciro Lovell. Interpretation Summary Limited echocardiogram performed by contracting analyst fellow. 1. LV appears globally hypokinetic. Visually estimated LVEF 40%. 2. RV is not well visualized, but appears mildly reduced in globalsystolic function. Recommend comprehensive echo. Unknown ECHO ORDERABLES documented in this encounter Visit Diagnoses Diagnosis SVT (supraventricular tachycardia) Other specified cardiac dysrhythmias documented in this encounter Care Teams Primer Waterproofing Machine Adjuster Relationship Specialty Start Date End Date Polo Pearce PA [address] [place] [address] PCP - General Internal Medicine 06/09/21 documented as of this encounter
--- OUTSIDE RECORDS SUMMARY | 2023-10-05 17:10 | XMS_ITS | Encounter Summary ---
Author Organization [facility] [place] [address] Care Team Providers Care Medical Billing Associate Name Role Phone Tim Rogers DNP Primary Care Provider [phone] Encounter Details Date Type Department Care Team (Late st Contact Info) Description 10/21/2020 Telephone [place] [address] Beto Miller MD [facility] [place] [address] Social History Tobacco Use Types Packs/Day Years [...] 1: 80, normal SSA, SSB, Alcantar antibody, FISH AND WILDLIFE BIOLOGIST antibody, ANCA, MPO antibody, CA-3 antibody, serum RITCHIE, CBC, BMP and CRP [...] Question: Where will study be performed? Answer: [facility] Order Specific Question: Apply for 7 or 14 days? Answer: 14 Beto Miller MD documented in this encounter Plan of Treatment Upcoming Encounters Date Type Department Care Team (Late st Contact Info) Description 10/08/2023 8:30 AM EDT Tech [place] [address] Channing Escobedo [place] 10/08/2023 9:30 AM EDT Office Visit [place] [address] MD [facility] [place] [address] 10/21/2023 10:30 AM EDT Appointment [place] [phone] Mary Reyes APRN [facility] [place] [address] 10/21/2023 11:30 AM EDT Appointment Nuclear Medicine at [place] [phone] Mary Reyes [facility] [address] 10/21/2023 12:30 PM EDT Appointment [place] [phone] Mary Reyes [facility] [address] 10/21/2023 1:30 PM EDT Appointment [place] [address] Mary Reyes [facility] [address] 10/21/2023 2:30 PM EDT Appointment [place] [address] Mary Reyes [facility] [address] 10/26/2023 4:00 PM EDT Office Visit Cardiology at [address] [phone] Jaspreet Kinsey MD [facility] [place] [address] 10/28/2023 9:00 AM EDT Office Visit [place] [address] 10/29/2023 10:00 AM EDT Clinical Support [place] [address] 10/29/2023 10:15 AM EDT Procedure visit [place] [address] 11/01/2023 5:00 PM EDT Office Visit Gastroenterology at [place] [phone] Selene Browning, PhD [facility] [place] [address] 11/22/2023 4:40 PM EDT Office Visit Cardiology at [address] [phone] Porsha Mcdaniels MD [facility] [place] [address] 12/13/2023 10:00 AM EDT Clinical Support [place] [address] Lucero Romero, ALVA [facility] [place] [address] documented as of this encounter Visit Diagnoses Diagnosis Palpitations documented in this encounter Care Teams Medical Billing Associate Relationship Specialty Start Date End Date Tim Rogers DNP PCP - General Family Medicine 08/28/19 06/08/21 documented as of this encounter
--- OUTSIDE RECORDS SUMMARY | 2023-10-05 17:10 | XMS_ITS | Encounter Summary ---
Author Organization [place] [address] Care Team Providers Care Car Racer Name Role Phone Tim Rogers DNP Primary Care Provider [phone] Encounter Details Date Type Department Care Team (Late st Contact Info) Description 06/06/2021 [place] [address] Paulo Ramachandran Jr., MD [facility] [place] [address] Social History Tobacco Use Types Packs/Day Years [...] provider/staff member. Referring Provider: Stuart Iyer MD [address] [place] [address] [place] [address] Indira Roque 51 y.o. w / a [...] pt has been accepted for transfer to [facility] tomorrow. I asked the provider to contact us again if there is change in clinical status. documented in this encounter Plan of Treatment Upcoming Encounters Date Type Department Care Team (Late st Contact Info) Description 10/08/2023 8:30 AM EDT Tech [place] [address] Channing Escobedo [place] 10/08/2023 9:30 AM EDT Office Visit [place] [address] MD [facility] [place] [address] 10/21/2023 10:30 AM EDT Appointment [place] [address] Mary Reyes APRN [facility] [place] [address] 10/21/2023 11:30 AM EDT Appointment [place] [address] [place] [address] 10/21/2023 12:30 PM EDT Appointment [place] [address] [place] [address] 10/21/2023 1:30 PM EDT Appointment [place] [address] [place] [address] 10/21/2023 2:30 PM EDT Appointment [place] [address] [place] [address] 10/26/2023 4:00 PM EDT Office Visit Cardiology at [address] [phone] Jaspreet Kinsey MD [facility] [place] [address] 10/28/2023 9:00 AM EDT Office [place] [address] 10/29/2023 10:00 AM EDT Clinical Support [place] [address] 10/29/2023 10:15 AM EDT Procedure [place] [address] 11/01/2023 5:00 PM EDT Office Visit Gastroenterology at [address] Selene Browning, PhD [facility] [place] [address] 11/22/2023 4:40 PM EDT Office [place] [address] Porsha Mcdaniels MD [facility] [place] [address] 12/13/2023 10:00 AM EDT Clinical Support Gastroenterology at [place] [phone] Lucero Romero, RD [facility] [place] [address] documented as of this encounter Visit Diagnoses Not on filedocumented in this encounter Care Teams Car Racer Relationship Specialty Start Date End Date Tim Rogers DNP PCP - General Family Medicine 08/28/19 06/08/21 documented as of this encounter
--- OUTSIDE RECORDS SUMMARY | 2023-10-05 17:10 | XMS_ITS | Encounter Summary ---
Author Organization [facility] [place] [address] Care Team Providers Care Shuttle Veneering Supervisor Name Role Phone Polo Pearce Primary Care Provider [phone] Reason for Referral * Diagnostic Test (Routine) - Closed Specialty Diagnoses / Procedures Referred By Jayant harris Referred To Contact Cardiology Diagnoses Elevated blood pressure reading without diagnosis of hypertension Procedures Ziopatch 48 Hrs-15 Days Deja Zaidi PA [facility] [place] [address] [facility] [place] [address] Referral ID Status Reason Start Date Expiration Date V isits Requested Visits Authorized [id number] Closed Specialty Service Requested 06/09/2021 12/09/2021 1 1 Reason for Visit * Auth/Cert Specialty Diagnoses / Procedures Referred By Jayant harris Referred To Contact Diagnoses NSTEMI (non-ST elevated myocardial infarction) NSTEMI Procedures EMERGENCY OBSVO Referral ID Status Reason Start Date Expiration Date Visits Re quested Visits Authorized [id number] 1 1 Encounter Details Date Type Department Care Team (Latest Contact Info) Description 06/07/2021 3:49 PM EDT - 06/09/2021 3:25 PM EDT Hospital Encounter Intermediate Cardiac Care Unit [facility] [place] [address] Mario Hallman MD [facility] DR YEUNG YARI [facility] NSTEMI (non-ST elevated myocardial infarction); Elevated blood [...] Loida Roque Patient Age: 51 y.o. Language: Ukrainian Race: White Ethnicity: Not nor Admit date: [...] in a week and prn ?? Consider [place] as an out patient Inpatient Provider Contact Information: Dr. Mario Zaidi PA-C [phone] Discharge Diagnoses (Hospital Problems) and Secondary Diagnoses [...] change from prior in 08/2019. ?? Procedure Complete-65485. Image enhancement Definity was used for left [...] who have questions please contact the health foster care therapist that requested your imaging first. CXR 06/08/2021 [...] hysterectomy, Insomnia, and migraine who presents to [facility] with RUQ pain that radiated to [...] 15. ?? Hospital Course: [facility] admission [facility], the patient had no complaints of chest pain or shortness of breath at rest.Telemetry was attached which showed normal sinus rhythm. Heparin drip was infusing. [facility] records/transfer records were reviewed. Baseline labs were checked and/or drawn. Chest Pain, GA ruled out, Echo showed preserved LVEF Given the patient's risk factors, chronic non-specific ST-T changes on ECG, and here at [facility] normaltroponin as well as reproducible chest tenderness [...] significant weight, however during her stay at [facility] now she lost only 0.9 kg, to [...] Follow up Appointments: PCP Tim Rogers APRN [phone] to see you in a week (patient to set this up) Mel placed on 06/09/2021 Cardiology to see in a month and prn. Dr. Kinsey to see the patient in [place] on July 23 at 920 am. Please call [phone] with questions. Home oxygen therapy: N/A Arrangements for VNA/home care: none Future Appointments and Orders Future Appointments and Orders Future Appointments Provider Department Dept Phone 07/23/2021 8:20 AM Jaspreet Kinsey MD Cardiology at [place] Arrive at: [facility] [address] [phone] Future Orders Complete By Expires Mel 48 Hrs-15 Days [[id number] CPT(R)] 06/09/2021 12/09/2021 Process Instructions: Scheduling Instructions: Questions: Does the patient have a pacemaker? If yes provide HI/LO settings: Apply for 7 or 14 days?: 14 Where will study be performed?: [facility] Clinics Basic Metabolic Panel (non-fasting) [LAB15 Custom] 06/16/2021 (Approximate) 06/09/2022 Process Instructions: INCLUDES: Calcium, BUN, Creat, GFR, Glucose, Lytes Scheduling Instructions: Comments: Questions: Discharge References/Attachments None documented in this encounter Discharge Instructions * Discharge Instructions* Deja Zaidi PA - 06/08/2021 1:56 PM EDT Return to work: One week Driving: as needed Follow up Appointments: PCP Tim Rogers APRN [phone] to see you in a week (patient to set this up) Mel placed on 06/09/2021 Cardiology to see in a month and prn. Dr. Kinsey to see the patient in [place] on July 23 at 920 am. Please call [phone] with questions. Home oxygen therapy: N/A Arrangements for VNA/home care: none documented in this encounter Medications at Time of Discharge Medication Sig Dispensed Refills Start Date End Date rOPINIRole (Requip) 1 mg Tablet Take 2 mg by mouth 2 times daily. 07/16/2020 loratadine (Claritin) 10 mg Tablet Take 10 mg by mouth daily as needed. fluticasone propionate (FLONASE) 50 mcg/actuation [place], Suspension 1 spray by Each Nare route [...] Nutrition Plan: Pt seen for Na2gm diet. Physical Meteorologist informed pt of current diet orders and their restrictions. Pt expressed understanding and informed this tag writer that she tries to limit salt use at home. Physical Meteorologist and pt discussed common sources of sodium (pre-prepared foods) and alternatives (fresh/frozen veggies). Provided educational material and encouraged pt to reach out with any questions or concerns. Will continue to monitor and follow up. Continue current diet. Monitor weight. Encourage good oral intake. Support and encouragement provided. Discussed case with Clinical Dietitian Active Orders Diet Daily Healthy Menu Choices/Cardiac diet (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 Rocio Rosenthal Pager: [phone] * Deja Zaidi PA - 06/09/2021 9:14 AM EDT Inpatient Cardiology Discharge Day Note Patient Name: Loida Roque Service: IT SECURITY SPECIALIST / PA Responsible Attending: Mario Hallman MD [...] (from the past 24 hour(s)) urine, qualitative ([place]/CGP/NL) Result Value Ref Range Spec [place] UA 1.010 1.006 - 1.030 HCG Qual [...] seen on recent CT scan presents to [facility] from [facility] with a NSTEMI. She has an [...] with Dr. Hallman. ?? JOCY Hernandez Pager [phone] JOCY MCKOY 06/09/2021 Associated attestation - Mario Hallman MD - 06/09/2021 9:37 PM EDT Cardiology Attending Addendum I shared this visit with JOCY Zaidi and guided the medical decision- making. I explained to patient the findings of echo, R heart catheterization and our diagnostic impression and medications (furosemide and empagliflozin) and possible adverse events. More than 30 minutes were spent in lhha-bb-vdko contact with patient and with arranging discharge [...] Jaspreet Pardo - 06/08/2021 8:34 PM EDT Director Special Education Encounter Note Patient Name: Loida Roque : [id number] MR#: [id number] Admit Date: 06/07/2021 3:49 PM Hospital Day 0 days Narrative: Initial rounding visit to introduce psychiatric social worker supervisor services and to assess patient interest. Patient [...] Day Note Patient Name: Loida Roque Service: IT SECURITY SPECIALIST / PA Responsible Attending: Mario Hallman MD [...] PCR Not Detected Not Detected SARS-CoV-2 Source IT SECURITY SPECIALIST Swab Troponin Result Value Ref Range Troponin-T [...] IU/mL Pertinent Radiographic/Diagnostic Results: ECHO: Assessment: Loida Rouqe is a 51 y.o. female with multiple cardiac risk factors including HTN, Dyslipidemia, MARYLOU, Obesity, and calcification seen on recent CT scan presents to [facility] from [facility] with a NSTEMI. She has an [...] with Dr. Hallman. ?? 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 ??? fluticasone propionate (FLONASE) 50 mcg/actuation [place], Suspension 1 spray by Each Nare route [...] seen on recent CT scan presents to [facility] from [facility] with a NSTEMI. She has an elevated trop, BNP and lateral EKG changes. Patient is now awaiting an Echo and cardiac cath. Neurology consult called in to determine if she needs imaging prior to her Echo and cath given garbled speech a week ago. Stable at this time. TREATMENT PLAN: NSTEMI Admit to [facility] for telemetry monitoring Serial enzymes and [...] JOCY Hernandez 06/07/2021 Provider: JOCY MCKOY Pager [phone] 06/07/2021 Associated attestation - Mario Hallman MD [...] COVID test: Lab Results Component Value Date [id number] Not Detected 06/07/2021 Present on Admission: ??? [...] Primary care provider on file: Tim Rogers, MACHINE BRUSHER [phone] Pharmacy: [id number] - [place], [place] - [address] [facility] [address] [facility] [address] Advance Care Planning: Attempt Cardiopulmonary Resuscitation - Inpatient <no information> -Advanced Directive: No, declines (Boby (spouse) SDM) Current Functional Ability: Independent Functional Status Prior to Admission: Independent Home Environment: Others in the home: spouse. Current Living Arrangements: home/apartment/condo. Accessibility Concerns: . Current DME: none [address] [facility] [address] Social & Family Supports: All names listed [...] private vehicle when medically ready. Registered Nurse Director Of Research And Development / Electrical Maintenance Supervisor will continue to follow patient???s progress and [...] Daily. ??? 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 Swallow Screen: This screen is to be [...] diet as medical provider deems appropriate. Consider KITCHEN AND COUNTER WORKER consult for full evaluation and diet recommendations. [...] NPO at midnight for cath 06/08 ECHO [facility] due at [address] [...] for further details. JOCY MCKOY 06/07/2021 Pager [phone] documented in this encounter Plan of Treatment Upcoming Encounters Date Type Department Care Team (Late st Contact Info) Description 10/08/2023 8:30 AM EDT Tech [place] [phone] [place] 10/08/2023 9:30 AM EDT Office [place] [phone] MD [facility] [place] [address] 10/21/2023 10:30 AM EDT Appointment [place] [phone] Mary Reyes APRN [facility] [place] [address] 10/21/2023 11:30 AM EDT Appointment [place] [address] Mary Reyes [facility] [address] 10/21/2023 12:30 PM EDT Appointment [place] [address] Mary Reyes [facility] [place] [address] 10/21/2023 1:30 PM EDT Appointment [place] [address] Mary Reyes [facility] [place] [address] 10/21/2023 2:30 PM EDT Appointment [place] [address] [place] [address] 10/26/2023 4:00 PM EDT Office Visit Cardiology at [address] [phone] Jaspreet Kinsey MD [facility] [place] [address] 10/28/2023 9:00 AM EDT Office [place] [address] 10/29/2023 10:00 AM EDT Clinical Support [place] [address] 10/29/2023 10:15 AM EDT Procedure visit [place] [address] 11/01/2023 5:00 PM EDT Office [place] [address] Selene Browning, PhD [facility] [place] [address] 11/22/2023 4:40 PM EDT Office Visit Cardiology at [address] [address] Porsha Mcdaniels MD [facility] [place] [address] 12/13/2023 10:00 AM EDT Clinical [place] [address] [facility] [place] [address] documented as of this encounter Procedures Procedure [...] Narrative 07/01/2021 9:29 AM EDT [facility] ? Zio Patch? Ambulatory Cardiac [...] atrial premature beat conducted with a prolonged MN interval, strongly suggestive of atrioventricular makayla reentrant [...] Modality Other Narrative 06/09/2021 9:09 AM EDT ?[facility] ? Cardiac Catheterization/Intervention Report ? Patient Name: Neisha, Loida ? Procedure Date: 06/09/2021 ? A #: [id number] ? Primary Physician: Aaron Ash ? Case #: [id number] ? File Name: [id number] ? Catheterization Order Number: [id number] ? [facility] ? Final Report [place], [place] ? Patient Name: ? Loida Neisha ? ID#: ?[id number] ? : ?1970 ? Procedure Date: ? June 09, 2021 ?Case #: ? [id number] ? Room: ? 1 ? Case Physician: [...] was ?designated as ASA Class III. The [facility] clinical frailty scale is 2: Well. [...] procedure was Urgent. The indication for ?the director of cath lab visit is other indication. Chest pain symptom [...] Procedure Note Aaron Ash MD - 06/23/2021 [facility] Cardiac Catheterization/Intervention Report Patient Name: Loida Roque Procedure Date: 06/09/2021 A #: [id number] Primary Physician: Aaron Ash Case #: [id number] File Name: [id number] Catheterization Order Number: [id number] [facility] FinalReport [place], [place] Patient Name: Loida Roque ID#:[id number] :1970 Procedure Date: June 09, 2021 Case [...] patientwas designated as ASA Class III. The [facility] clinical frailty scale is 2:Well. Diagnostic [...] diagnostic procedure was Urgent. The indicationfor the director of cath lab visit is other indication. Chest pain symptomassessment [...] Natriuretic Peptide (06/09/2021 3:37 AM EDT) Pathologist [facility] ProBNP 911(H) <=124 pg/mL [facility] Blood Venous Draw / Unknown 06/09/2021 3:37 AM EDT 06/09/2021 3:59 AM EDT Narrative Resulting Agency Comment Spec In Lab Deja SANDRA CHEMISTRY ORDERABLES [facility] [place] [address] * Differential, Automated (06/09/2021 3:37 AM EDT) [facility] Neutrophils % 64.9 % [facility] Neutr Abs (ANC) 5.12 1.70 - 6.10 x10(3)/[facility] Lymphocytes % 21.9 % [facility] Lymphocytes Abs 1.7 0.9 - 3.2 x10(3)/[facility] Monocytes % 8.6 % [facility] Monocyte Abs 0.7 0.3 - 0.9 x10(3)/[facility] Eosinophils % 3.4 % [facility] Eosinophils Abs 0.3 0.0 - 0.4 x10(3)/[facility] Basophils % 0.8 % [facility] Basophils Abs 0.1 0.0 - 0.1 x10(3)/[facility] Immature Gran % 0.40 % [...] Gran Abs 0.03 0.00 - 0.04 x10(3)/[facility] Blood 06/09/2021 3:37 AM EDT 06/09/2021 3:58 AM EDT Narrative Resulting Agency Comment Spec In Lab Deja SANDRA HEMATOLOGY ORDERABLE S [facility] [place] [address] * (ABNORMAL) Hemogram (06/09/2021 3:37 AM EDT) WBC 7.9 4.0 - 9.5 x10(3)/[facility] RBC 4.88 4.00 - 5.21 x10(6)/[facility] Hemoglobin 15.2 11.7 - 15.5 g/dL [facility] Hematocrit 46.5(H) 35.7 - 45.8 % [facility] MCV 95.3(H) 82.6 - 94.4 fL [facility] MCH 31.1 27.1 - 32.0 pg [facility] MCHC 32.7 31.7 - 35.0 g/dL [facility] Platelets 334 145 - 357 x10(3)/[facility] RDWSD 49.2(H) 37.0 - 46.0 [facility] RDWCV 14.5(H) 11.5 - 14.1 % [facility] MPV 10.2 7.6 - 12.9 [facility] nRBC % Auto 0.0 % [facility] nRBC Abs Auto 0.000 0.000 - 0.000 x10(3)/[facility] Blood 06/09/2021 3:37 AM EDT 06/09/2021 3:58 AM EDT Narrative Resulting Agency Comment Spec In Lab Deja SANDRA HEMATOLOGY ORDERABLE S [facility] [place] [address] * (ABNORMAL) BMP w/fasting Glucose (06/09/2021 3:37 AM EDT) Pathologist [facility] Glucose Fasting 103(H) 65 - 99 mg/dL [place] [...] of Diabetes Mellitus, Position Statement from the [place] [employer]. ??Diabetes Care, Volume 33, Supplement 1, Mar 2009 BUN 23(H) 8 - 18 mg/dL [facility] Creatinine 0.86 0.70 - 1.20 mg/dL [facility] Estimated GFR 78 >=60 mL/min/1. 73 m?? [facility] Comment: This patient? s [...] In Lab Mario Hallman MD CHEMISTRY ORDERABLES [facility] [place] [address] * Heparin (unfractionated) Level (06/08/2021 4:07 PM EDT) Heparin UFH Level <0.04 IU/mL [facility] [...] Mario Hallman MD HEMATOLOGY ORDERABLE S [facility] [place] [address] * XR Chest PA & Lateral (Generic) [...] who have questions please contact the health foster care therapist that requested your imaging first. ? [...] patients who have questions please contactthe health foster care therapist that requested your imaging first. Electronically signed by: Magda Machado MD, [facility] ([phone]), at 06/08/2021 6:00 PM Mario Hallman MD [...] who have questions please contact the health foster care therapist that requested your imaging first. ? [...] patients who have questions please contactthe health foster care therapist that requested your imaging first. Mario Hallman MD IMG MRI ORDERABLES * (ABNORMAL) CRP, acute inflammation (06/08/2021 11:58 AM EDT) CRP 28.1(H) <=4.9 mg/L [facility] Blood 06/08/2021 11:5 8 AM EDT 06/08/2021 12:04 PM EDT Narrative Resulting Agency Comment Spec In Lab Mario Hallman MD CHEMISTRY ORDERABLES [facility] [place] [address] * CK (06/08/2021 11:58 AM EDT) Pathologist [facility] CK, Total 30 0 - 160 unit/L [facility] Blood 06/08/2021 11:5 8 AM EDT 06/08/2021 12:04 PM EDT Narrative Resulting Agency Comment Spec In Lab Mario Hallman MD CHEMISTRY ORDERABLES Performing Organization Address City/[facility]/ZIP Co de Phone Number [facility] [place] [address] * (ABNORMAL) Sedimentation rate (06/08/2021 11:58 AM EDT) [facility] Sed Rate 53(H) 2 - 39 mm/hr [place] [...] MD HEMATOLOGY ORDERABLE S Performing Organization Address [facility] Co de Phone Number [facility] [place] [address] * Heparin (unfractionated) Level (06/08/2021 11:58 AM EDT) [facility] Heparin UFH Level 0.77 IU/mL [facility] [...] MD HEMATOLOGY ORDERABLE S Performing Organization Address [facility] de Phone Number [facility] [place] [address] * urine, qualitative ([place]/[facility]/CGP/NLH) (06/08/2021 11:51 AM EDT) Spec [place] UA 1.010 1.006 - 1.030 [facility] HCG Qual Negative [facility] Comment: Dilute urine samples can result in a false negative test. Repeat testing on a first morning sample or a plasma quantitative hCG measurement is recommended. Urine 06/08/2021 11:5 1 AM EDT 06/08/2021 12:32 PM EDT Narrative Resulting Agency Comment Spec In Lab Mario Hallman MD URINE ORDERABLES Performing Organization Address [facility] de Phone Number [facility] [place] [address] * ECHO COMPLETE W CONTRAST (06/08/2021 11:09 AM EDT) Anatomical Region Laterality Modality Other 06/08/2021 9:35 AM EDT Narrative 06/08/2021 12:42 PM EDT ?[facility] ?[address] ? [place] [address] ?Voice: ?Fax: ? Echocardiogram Report Name: NEISHA, LOIDA ? Study Date: 06/08/2021 09:35 AMBP: 109/69 mmHg ? Patient Location: ICCU^432^A : 1970 ? Height: 163 cm ? Account: [id number] Age: 51 yrs ? Weight: 95 kg Gender: Female ?BSA: 2.0 m2 Ordering Physician: DONALD Referring Physician: AJ HARTMAN Performed By: Aaron eHrr RDCS Reason For Study: NSTEMI (non-ST elevated myocardial infarction) Exam Location: [facility]. Interpretation Summary 1. Left ventricle [...] significant change from prior in 08/2019. Procedure Complete-48151. Image enhancement Definity was used for left [...] Procedure Note Kai Haider MD - 06/08/2021 [facility] [address] [place] [address] Voice: Fax: Echocardiogram Report Name: LOIDA ROQUE Study Date: 209:35 AMBP: 109/69 mmHg Patient Location:[place] [address]^A : 1970 Height: 163 cm Account: [id number] Age: 51 yrs Weight: 95 kg Gender: Female BSA: 2.0 m2 Ordering Physician: DONALD Referring Physician: AJ HARTMAN Performed By: Aaron Herr RDCS Reason For Study: NSTEMI (non-ST elevated myocardial infarction) Exam Location: [facility]. Interpretation Summary 1. Left ventricle [...] significant change from prior in 08/2019. Procedure Complete-59629. Image enhancement Definity was used for left [...] EDT) Heparin UFH Level 1.20(Crit ical) IU/mL [facility] Lab Edie Costello MD HEMATOLOGY ORDERABLE S [facility] [place] [address] * (ABNORMAL) Differential, Automated (06/08/2021 4:41 AM EDT) Neutrophils % 71.8 % [facility] Neutr Abs (ANC) 8.09(H) 1.70 - 6.10 x10(3)/mc L [facility] Lymphocytes % 18.0 % [facility] Lymphocytes Abs 2.0 0.9 - 3.2 x10(3)/mc L [facility] Monocytes % 5.7 % [facility] Monocyte Abs 0.6 0.3 - 0.9 x10(3)/mc L [facility] Eosinophils % 3.5 % [facility] Eosinophils Abs 0.4 0.0 - 0.4 x10(3)/mc L [facility] Basophils % 0.6 % [...] Abs 0.05(H) 0.00 - 0.04 x10(3)/mc L [facility] Blood 06/08/2021 4:41 AM EDT 06/08/2021 5:11 AM EDT Narrative Resulting Agency Comment Spec In Lab Deja SANDRA HEMATOLOGY ORDERABLE S [facility] [place] [address] * (ABNORMAL) Hemogram (06/08/2021 4:41 AM EDT) WBC 11.3(H) 4.0 - 9.5 x10(3)/[facility] LABORATORY RBC 4.64 4.00 - 5.21 x10(6)/[facility] LABORATORY Hemoglobin 13.9 11.7 - 15.5 g/dL [facility] Hematocrit 43.0 35.7 - 45.8 % [facility] MCV 92.7 82.6 - 94.4 fL [facility] MCH 30.0 27.1 - 32.0 pg [facility] MCHC 32.3 31.7 - 35.0 g/dL [facility] Platelets 312 145 - 357 x10(3)/[facility] RDWSD 47.4(H) 37.0 - 46.0 fL [facility] RDWCV 14.3(H) 11.5 - 14.1 % [facility] MPV 10.8 7.6 - 12.9 fL [facility] nRBC % Auto 0.0 % [facility] nRBC Abs Auto 0.000 0.000 - 0.000 x10(3)/mcL [facility] Blood 06/08/2021 4:41 AM EDT 06/08/2021 5:11 AM EDT Narrative Resulting Agency Comment Spec In Lab Deja SANDRA HEMATOLOGY ORDERABLE S Performing Organization Address City/[facility]/ZIP Co de Phone Number [facility] [place] [address] * (ABNORMAL) Heparin (unfractionated) Level (06/08/2021 4:41 AM EDT) Heparin UFH Level 1.06(Crit ical) IU/mL [facility] Lab Mario Hallman MD HEMATOLOGY ORDERABLE S [facility] [place] [address] * (ABNORMAL) BMP w/fasting Glucose (06/08/2021 4:41 AM EDT) Glucose Fasting 95 65 - 99 mg/dL [place] of Diabetes Mellitus, Position Statement from the [place] Diabetes Association. ??Diabetes Care, Volume 33, Supplement 1, Mar 2009 BUN 21(H) 8 - 18 mg/dL [facility] Creatinine 0.87 0.70 - 1.20 mg/dL [facility] Calcium 8.7 8.5 - 10.5 mg/dL [facility] Estimated GFR 77 >=60 mL/min/1. 73 m?? [facility] Comment: This patient? s [...] In Lab Mario Hallman MD CHEMISTRY ORDERABLES [facility] [place] [place] [address] * Troponin (06/08/2021 4:41 AM EDT) Troponin-T [...] ischemia ?? New or presumed new significant YV-huhapeh-R wave (ST-T) changes or new left bundle [...] additional sample may be indicated. Reference: Third [place] Definition of Myocardial Infarction. Journal of the [place] College of [employer] 2012;60:1581-98 Blood 06/08/2021 4:41 AM EDT 06/08/2021 5:12 AM EDT Narrative Resulting Agency Comment Spec In Lab Mario Hallman MD CHEMISTRY ORDERABLES [facility] [place] [address] * Heparin (unfractionated) Level (06/07/2021 9:55 PM EDT) [facility] Heparin UFH Level 0.08 IU/mL [facility] [...] Lab Mario Hallman MD HEMATOLOGY ORDERABLE S [facility] [place] [address] * (ABNORMAL) pro-Brain Natriuretic Peptide (06/07/2021 5:26 PM EDT) [facility] ProBNP 2,701(H) <=124 pg/mL [facility] Blood Venous Draw / Unknown 06/07/2021 5:26 PM EDT 06/07/2021 5:44 PM EDT Narrative Resulting Agency Comment Spec In Lab Deja SANDRA CHEMISTRY ORDERABLES [facility] [place] [address] * (ABNORMAL) Differential, Automated (06/07/2021 5:26 PM EDT) [facility] Neutrophils % 74.6 % [facility] Neutr Abs (ANC) 8.97(H) 1.70 - 6.10 x10(3)/[facility] LABORATORY Lymphocytes % 15.9 % [facility] Lymphocytes Abs 1.9 0.9 - 3.2 x10(3)/[facility] LABORATORY Monocytes % 6.0 % [facility] Monocyte Abs 0.7 0.3 - 0.9 x10(3)/[facility] LABORATORY Eosinophils % 2.6 % [facility] Eosinophils Abs 0.3 0.0 - 0.4 x10(3)/[facility] LABORATORY Basophils % 0.5 % [facility] Basophils Abs 0.1 0.0 - 0.1 x10(3)/[facility] LABORATORY Immature Gran % 0.40 % [...] Shonda Gran Abs 0.05(H) 0.00 - 0.04 x10(3)/[facility] LABORATORY Blood 06/07/2021 5:26 PM EDT 06/07/2021 5:36 PM EDT Narrative Resulting Agency Comment Spec In Lab Deja SANDRA HEMATOLOGY ORDERABLE S [facility] [place] [address] * (ABNORMAL) Hemogram (06/07/2021 5:26 PM EDT) WBC 12.0(H) 4.0 - 9.5 x10(3)/[facility] LABORATORY RBC 4.72 4.00 - 5.21 x10(6)/[facility] LABORATORY Hemoglobin 14.5 11.7 - 15.5 g/dL [facility] Hematocrit 44.0 35.7 - 45.8 % [facility] MCV 93.2 82.6 - 94.4 fL [facility] MCH 30.7 27.1 - 32.0 pg [facility] MCHC 33.0 31.7 - 35.0 g/dL [facility] Platelets 346 145 - 357 x10(3)/[facility] LABORATORY RDWSD 47.2(H) 37.0 - 46.0 [facility] LABORATORY RDWCV 14.4(H) 11.5 - 14.1 % [facility] MPV 10.6 7.6 - 12.9 [facility] LABORATORY nRBC % Auto 0.0 % [facility] nRBC Abs Auto 0.000 0.000 - 0.000 x10(3)/[facility] LABORATORY Blood 06/07/2021 5:26 PM EDT 06/07/2021 5:36 PM EDT Narrative Resulting Agency Comment Spec In Lab Deja SANDRA HEMATOLOGY ORDERABLE S [facility] [place] [address] * BMP w/fasting Glucose (06/07/2021 5:26 PM EDT) Glucose Fasting 90 65 - 99 mg/dL [facility] [...] of Diabetes Mellitus, Position Statement from the [place] Diabetes Association. ??Diabetes Care, Volume 33, Supplement [...] [facility] Estimated GFR 60 >=60 mL/min/1. 73 m?? [facility] Comment: This patient? s [...] In Lab Mario Hallman MD CHEMISTRY ORDERABLES [facility] [place] [address] * T3 Total (06/07/2021 5:26 PM EDT) T3, Total 134 80 - 200 ng/dL [facility] Blood 06/07/2021 5:26 PM EDT 06/07/2021 5:36 PM EDT Narrative Resulting Agency Comment Spec In Lab Mario Hallman MD CHEMISTRY ORDERABLES Performing Organization Address [facility] Co de Phone Number [facility] [place] [address] * T4 Total (06/07/2021 5:26 PM EDT) T4, total 6.8 5.3 - 11.6 mcg/dL [facility] Comment: Reference Interval (mcg/dL): Females: ??First Trimester: 6.3-13.5 ??Second Trimester: 7.1-14.3 ??Third Trimester: 6.9-14.1 Blood 06/07/2021 5:26 PM EDT 06/07/2021 5:36 PM EDT Narrative Resulting Agency Comment Spec In Lab Mario Hallman MD CHEMISTRY ORDERABLES Performing Organization Address [facility] de Phone Number [facility] [place] [address] * (ABNORMAL) TSH (06/07/2021 5:26 PM EDT) Pathologist [facility] TSH 5.83(H) 0.27 - 4.20 mcIU/mL [facility] Comment: Reference Interval (mcIU/mL): Females: ??First Trimester: 0.23-3.88 ??Second Trimester: 0.22-3.90 ??Third Trimester: 0.44-4.66 Blood 06/07/2021 5:26 PM EDT 06/07/2021 5:36 PM EDT Narrative Resulting Agency Comment Spec In Lab Mario Hallman MD CHEMISTRY ORDERABLES Performing Organization Address [facility] Co de Phone Number [facility] [place] [address] * Lipase (06/07/2021 5:26 PM EDT) Lipase 18 0 - 60 unit/L [facility] Blood 06/07/2021 5:26 PM EDT 06/07/2021 5:36 PM EDT Narrative Resulting Agency Comment Spec In Lab Mario Hallman MD CHEMISTRY ORDERABLES [facility] [place] [address] * Amylase (06/07/2021 5:26 PM EDT) Amylase 39 28 - 100 unit/L [facility] Blood 06/07/2021 5:26 PM EDT 06/07/2021 5:36 PM EDT Narrative Resulting Agency Comment Spec In Lab Mario Hallman MD CHEMISTRY ORDERABLES Performing Organization Address City/[facility]/ZIP Co de Phone Number [facility] [place] [address] * Lipid Panel (Reflex Direct LDL) (06/07/2021 5:26 PM EDT) Chol, Total 164 mg/dL [facility] Comment: Lower Risk: <200 mg/dL Average Risk: 200-239 mg/dL Higher Risk: >th=401 mg/dL Triglycerides 144 mg/dL [facility] Comment: Average Risk/Lower Risk: <150 mg/dL Borderline High Risk: 150-199 mg/dL High Risk: 200-499 mg/dL Very High Risk: >gy=698 mg/dL HDL 44 mg/dL [facility] Comment: Males: ?? Higher Risk: <40 mg/dL Females: ?? Higher Risk: <50 mg/dL LDL Cholesterol 91 mg/dL [facility] Comment: Lowest Risk: <100 mg/dL Lower Risk: 100-129 mg/dL Borderline High Risk: 130-159 mg/dL High Risk: 160-189 mg/dL Very High Risk: >xh=872 mg/dL Chol/HDL Ratio 3.7 ratio [facility] Lipid Interpretation See Note [facility] Comment: Lipid management should be guided by a patient? s ASCVD risk, goals and preferences. ACC/AHA Guidelines recommend high intensity statin if clinical ASCVD or LDL greater than or equal to 190 mg/dL. http://Poly Adaptive.com/DCZ-HZS-Llsinezrr Adults aged 40-75 with LDL 70-189 mg/dL should have their 10 year ASCVD risk estimated with the ACC/AHA ASCVD risk hvac estimator http://tools.acc.org/YXAHQ-Vniy-Hzrnbzday/ Statin should be discussed if risk greater [...] Hallman MD CHEMISTRY ORDERABLES Performing Organization Address City/[facility]/ZIP Co de Phone Number [facility] [place] [address] * CK (06/07/2021 5:26 PM EDT) CK, Total 33 0 - 160 unit/L [facility] Blood 06/07/2021 5:26 PM EDT 06/07/2021 5:36 PM EDT Narrative Resulting Agency Comment Spec In Lab Mario Hallman MD CHEMISTRY ORDERABLES Performing Organization Address City/[facility]/ZIP Co de Phone Number [facility] [place] [address] * Hemoglobin A1c (06/07/2021 5:04 PM EDT) Hemoglobin A1C 5.6 4.3 - 5.6 % [place] [...] 1, S67-74 Est Avg Gluc 114 mg/dL [facility] Comment: eAG equivalents for [...] into estimated average glucose values. ??Diabetes Care 2008:31(8):5043-6604. Blood 06/07/2021 5:04 PM EDT 06/07/2021 5:36 PM EDT Narrative Resulting Agency Comment Spec In Lab Mario Hallman MD CHEMISTRY ORDERABLES Performing Organization Address [facility]/ZIP Co de Phone Number [facility] [place] [address] * Troponin (06/07/2021 5:04 PM EDT) [facility] Troponin-T <0.01 0.00 - 0.00 ng/mL [facility] [...] ischemia ?? New or presumed new significant YR-zcvnovd-T wave (ST-T) changes or new left bundle [...] additional sample may be indicated. Reference: Third [place] Definition of Myocardial Infarction. Journal of the [place] College of [employer]iology 2012;60:1581-98 Blood 06/07/2021 5:04 PM EDT 06/07/2021 5:36 PM EDT Narrative Resulting Agency Comment Spec In Lab Mario Hallman MD CHEMISTRY ORDERABLES Performing Organization Address [facility]/ZIP Co de Phone Number [facility] [place] [address] * EKG 12 Lead (06/07/2021 4:33 PM EDT) [facility] Ventricular rate 54 BPM MUSE SYSTEM Atrial Rate 54 BPM MUSE SYSTEM P-R Interval 166 ms MUSE SYSTEM QRS Duration 86 ms MUSE SYSTEM Q-T Interval 514 ms MUSE SYSTEM QTC Calculated (Bezet) 487 ms MUSE SYSTEM Calculated P Temple 30 degrees MUSE SYSTEM Calculated R Temple 22 degrees MUSE SYSTEM Calculated T Temple 18 degrees MUSE SYSTEM INTERPRETATION Sinus bradycardia Left atrial enlargement Cannot rule out Lateral infarct , age undetermined Abnormal ECG When compared with ECG of 31-AUG-2019 07:05, No significant change was found Confirmed by MD Dalia, Willy Huerta ([id number]) on 06/09/2021 4:36:27 PM MUSE SYSTEM 06/07/2021 4:33 PM EDT 06/09/2021 4:36 PM EDT Mario Hallman MD ECG ORDERABLES MUSE SYSTEM * COVID-19 PCR (06/07/2021 4:30 PM EDT) SARS-CoV-2 RNA PCR Not Detected Not Detected [facility] Comment: This result should [...] using the Simplexa COVID-19 Direct Assay by [employer] as authorized by the FDA issued Emergency [...] Department of Pathology and Laboratory Medicine at [facility], certified under the Clinical Laboratory [...] fact sheets at the following FDA website: https://www.fda.gov/medical-devices/oreaooietsb-ubyrreu-7768-ikigr-89-eqlszwoex- use-a zqiapvcycricr-aaipufz-czpcaye/cwjuc-yhibifkeiwr-nvxl SARS-CoV-2 Source IT SECURITY SPECIALIST Swab [facility] Nasopharyngeal Swab 06/08/19 4:30 PM EDT 06/07/2021 4:45 PM EDT Comment:Symptoms->Surveillan ce Narrative Resulting Agency Comment Spec In Lab Mario Hlalman MD MICROBIOLOGY - GENER AL ORDERABLES [facility] [place] [address] documented in this encounter Visit Diagnoses Diagnosis [...] PROTOCOL, Starting on 06/07/21 at 1744, Until Saxe 06/08/21 at 1300, Per Protocol, START ADJUSTMENT [...] (Given - Provider: Colette Medina, ERWIN) 0853 ([facility] Hold - Provider: Admin Adt - Reason: Transfer to a Procedural area)0929 ([facility] Unhold - Provider: Admin Adt) empagliflozin (Jardiance) Tab 10 mg 10 mg, Oral, DAILY, First dose on 06/08/21 at 1545, Until Discontinued, Routine 1717 (Given - Provider: Jo Ann Maldonado RN - Comment: awaiting medication from pharmacy) 0853 ([facility] Hold [...] Routine documented in this encounter Care Teams Shuttle Veneering Supervisor Relationship Specialty Start Date End Date Polo Pearce PA [address] [place] [address] PCP - General Internal Medicine 06/09/21 documented as of this encounter
--- OUTSIDE RECORDS SUMMARY | 2023-10-05 17:10 | XMS_ITS | Encounter Summary ---
[place] [address] Care Team Providers Care Pigs Feet Finisher Name Role Phone Tim Rogers DNP Primary Care Provider [phone] Encounter Details Date Type Department Care Team (Late st Contact Info) Description 05/28/2021 [place] [phone] Beryl Grider Social History Tobacco Use Types [...] AM EDT Tech Visit Vascular Lab [place] [facility] [address] [place] 10/08/2023 9:30 AM EDT Office Visit Vascular Surgery at [address] MD [facility] [place] [address] 10/21/2023 10:30 AM EDT Appointment Nuclear Medicine at [place] [phone] Mary Reyes [facility] [place] [address] 10/21/2023 11:30 AM EDT Appointment Nuclear Medicine at [place] [phone] Mary Reyes [facility] [place] [address] 10/21/2023 12:30 PM EDT Appointment Nuclear Medicine at [place] [phone] Mary Reyes [facility] [place] [address] 10/21/2023 1:30 PM EDT Appointment [place] [address] Mary Reyes [facility] [place] [address] 10/21/2023 2:30 PM EDT Appointment [place] [address] Mary Reyes [facility] [place] [address] 10/26/2023 4:00 PM EDT Office Visit Cardiology at [address] [address] Jaspreet Kinsey MD [facility] [place] [address] 10/28/2023 9:00 AM EDT Office Visit [place] [address] 10/29/2023 10:00 AM EDT Clinical Support [place] [address] 10/29/2023 10:15 AM EDT Procedure visit [place] [address] 11/01/2023 5:00 PM EDT Office [place] [phone] Selene Browning, PhD [facility] [place] [address] 11/22/2023 4:40 PM EDT Office Visit Cardiology at [address] [phone] Porsha Mcdaniels MD [facility] [place] [address] 12/13/2023 10:00 AM EDT Clinical [place] [phone] Lucero Romero, RD [facility] [place] [address] documented as of this encounter Visit Diagnoses Not on filedocumented in this encounter Care Teams Pigs Feet Finisher Relationship Specialty Start Date End Date Tim Rogers DNP PCP - General Family Medicine 08/28/19 06/08/21 documented as of this encounter
--- OUTSIDE RECORDS SUMMARY | 2023-10-05 17:10 | XMS_ITS | Encounter Summary ---
Author Organization [facility] Address [facility] [place] [address] Care Team Providers Care Forensic Science Examiner Name Role Phone Tim Rogers DNP Primary Care Provider [phone] Encounter Details Date Type Department Care Team (Latest Contact Info) Description 05/30/2021 9:30 AM EDT TH Visit (TeleHealth) [place] [address] Beto Miller MD [facility] [place] [address] Pleurisy with effusion; *History of COVID-19; Chronic [...] 05/30/21 PCP: Polo Pearce and Tim Rogers, POULTRY EVISCERATOR [address] [place] [address] Pulmonary Background: ?? Cough, dyspnea, wheeze and [...] 1: 80, normal SSA, SSB, Alcantar antibody, AUTO APPRENTICE MECHANIC antibody, ANCA, MPO antibody, DC-3 antibody, serum RITCHIE, CBC, BMP and CRP [...] I reviewed the chest x-ray done at [facility] at the time which showed bilateral hazy opacities (mild). Debbie was not hospitalized for Covid and seemed to make a short-term recovery but by late April was again struggling. She describes increased cough and dyspnea and went to the emergency room at [facility] May 02. I do not have that [...] the May 27 CT chest images from [facility] and her April chest x-ray images ??? Once I have reviewed these I will contact the patient and potentially involve local press brake operator, Ryanne Wilson, who I do not think is ever seen the patient but may be a useful local resourcegiven Indira's complicated history Outpatient Established Visits Time MDM 25809 10-19 Straightforward 91445 20-29 X Low 95257 30-39 Moderate 59455 40-54 High 69930 + 15 mins Beto Miller MD documented in this encounter Plan of Treatment Upcoming Encounters Date Type Department Care Team (Late st Contact Info) Description 10/08/2023 8:30 AM EDT Tech Visit Vascular [place] [address] Channing Escobedo [place] 10/08/2023 9:30 AM EDT Office Visit Vascular Surgery at [address] MD [facility] [place] [address] 10/21/2023 10:30 AM EDT Appointment Nuclear Medicine at [address] [facility] [place] [address] 10/21/2023 11:30 AM EDT Appointment Nuclear Medicine at [place] [phone] [facility] [place] [address] 10/21/2023 12:30 PM EDT Appointment Nuclear Medicine at [place] [phone] [facility] [place] [address] 10/21/2023 1:30 PM EDT Appointment [place] [address] [facility] [place] [address] 10/21/2023 2:30 PM EDT Appointment [place] [address] Mary Reyes POULTRY EVISCERATOR [facility] [place] [address] 10/26/2023 4:00 PM EDT Office Visit Cardiology at [address] [phone] Jaspreet Kinsey MD [facility] [place] [address] 10/28/2023 9:00 AM EDT Office [place] [address] 10/29/2023 10:00 AM EDT Clinical [place] [address] 10/29/2023 10:15 AM EDT Procedure [place] [address] 11/01/2023 5:00 PM EDT Office [place] [phone] Selene Browning, PhD [facility] [place] [address] 11/22/2023 4:40 PM EDT Office Visit Cardiology at [address] [phone] Porsha Mcdaniels MD [facility] [place] [address] 12/13/2023 10:00 AM EDT Clinical Support [place] [phone] Lucero Romero, RD [facility] [place] [address] documented as of this encounter Visit Diagnoses Diagnosis Pleurisy with effusion Unspecified pleural effusion History of COVID-19 Chronic cough Cough RAVI (dyspnea on exertion) Other dyspnea and respiratory abnormality documented in this encounter Care Teams Forensic Science Examiner Relationship Specialty Start Date End Date Tim Rogers DNP PCP - General Family Medicine 08/28/19 06/08/21 documented as of this encounter
--- OUTSIDE RECORDS SUMMARY | 2023-10-05 17:10 | XMS_ITS | Encounter Summary ---
Author Organization [facility] [place] [address] Care Team Providers Care Sports Equipment Supervisor Name Role Phone Tim Rogers DNP Primary Care Provider [phone] Encounter Details Date Type Department Care Team (Late st Contact Info) Description 09/09/2020 Telephone [place] [address] Beto Miller MD [facility] [place] [address] Social History Tobacco Use Types Packs/Day Years [...] ?? I reviewed CT scans performed in [facility] in 2019 (w/contrast) and April 2020 (w/o [...] the 2020 CT given the motion artifacts. Refinery Operator images are below Combination of eosinophilia, adenopathy, [...] Diff) Please fax results to Dr Miller [phone] Standing Status: Future Standing Expiration Date: 03/11/2021 ??? Basic Metabolic Panel (non-fasting) Please fax results to Dr Miller [phone] Standing Status: Future Standing Expiration Date: 03/11/2021 ??? [place] [place] Please fax results to Dr Miller [phone] Standing Status: Future Standing Expiration Date: 03/11/2021 ??? Extractable Nuclear Antigen (JENNA) Ab Please fax results to Dr Miller [phone] Standing Status: Future Standing Expiration Date: 03/11/2021 ??? Angiotensin Converting Enzyme Please fax results to Dr Miller [phone] Standing Status: Future Standing Expiration Date: 03/11/2021 ??? CRP, acute inflammation Please fax results to Dr Miller [phone] Standing Status: Future Standing Expiration Date: 03/11/2021 ??? Cytoplasmic Neutrophilic Ab Please fax results to Dr Miller [phone] Standing Status: Future Standing Expiration Date: 09/09/2021 ??? Myeloperoxidase Ab Please fax results to Dr Miller [phone] Standing Status: Future Standing Expiration Date: 09/09/2021 ??? Proteinase-3 Antibody Please fax results to Dr Miller [phone] Standing Status: Future Standing Expiration Date: 09/09/2021 ??? Immunoglobulin E (IgE) Please fax results to Dr Miller [phone] Standing Status: Future Standing Expiration Date: 09/09/2021 ??? Immunoglobulins, Quantitative Standing Status: Future Standing Expiration Date: 09/09/2021 documented in this encounter Plan of Treatment Upcoming Encounters Date Type Department Care Team (Late st Contact Info) Description 10/08/2023 8:30 AM EDT Tech [place] [address] Channing Escobedo [place] 10/08/2023 9:30 AM EDT Office Visit [place] [phone] MD [facility] [place] [address] 10/21/2023 10:30 AM EDT Appointment [place] [address] Mary [place]yes [place] [address] 10/21/2023 11:30 AM EDT Appointment Nuclear Medicine at [place] [phone] Mary [place] [address] 10/21/2023 12:30 PM EDT Appointment Nuclear Medicine at [place] [phone] [address] [place] [address] 10/21/2023 1:30 PM EDT Appointment [place] [address] Mary [place] [address] 10/21/2023 2:30 PM EDT Appointment [place] [address] Mary [place] [address] 10/26/2023 4:00 PM EDT Office Visit Cardiology at [address] [phone] Jaspreet Kinsey MD [facility] [place] [address] 10/28/2023 9:00 AM EDT Office [place] [address] 10/29/2023 10:00 AM EDT Clinical [place] [address] 10/29/2023 10:15 AM EDT Procedure [place] [address] 11/01/2023 5:00 PM EDT Office Visit [place] [address] Selene Browning, PhD [facility] [place] [address] 11/22/2023 4:40 PM EDT Office Visit Cardiology at [address] [address] Porsha Mcdaniels MD [facility] [place] [address] 12/13/2023 10:00 AM EDT Clinical Support [place] [address] Lucero Romero, RD [facility] [place] [place] [address] documented as of this encounter Visit Diagnoses Diagnosis Acute recurrent sinusitis, unspecified location RAVI (dyspnea on exertion) Other dyspnea and respiratory abnormality Abnormal CT of the chest Nonspecific (abnormal) findings on radiological and other examination of other intrathoracic organs documented in this encounter Care Teams Sports Equipment Supervisor Relationship Specialty Start Date End Date Tim Rogers DNP PCP - General Family Medicine 08/28/19 06/08/21 documented as of this encounter
--- OUTSIDE RECORDS SUMMARY | 2023-10-05 17:10 | XMS_ITS | Encounter Summary ---
[place] [address] Care Team Providers Care Picture Booker Name Role Phone Polo Pearce Primary Care Provider [phone] Reason for Visit * Auth/Cert Specialty Diagnoses / Procedures Referred By Jayant harris Referred To Contact Diagnoses NSTEMI (non-ST elevated myocardial infarction) NSTEMI Procedures EMERGENCY OBSVO Referral ID Status Reason Start Date Expiration Date Visits Re quested Visits Authorized [id number] 1 1 Encounter Details Date Type Department Care Team (Late st Contact Info) Description 06/09/2021 8:15 AM EDT - 06/09/2021 9:15 AM EDT Surgery [place] [phone] Aaron Ash MD [facility] [place] [address] CARDIAC CATHETERIZATION Social History Tobacco Use Types [...] Loida Roque Patient Age: 51 y.o. Language: Bermudian Race: White Ethnicity: Not nor Admit date: [...] Provider Contact Information: Dr. Mario Zaidi PA-C [phone] Discharge Diagnoses (Hospital Problems) and Secondary Diagnoses [...] change from prior in 08/2019. ?? Procedure Complete-[id number]. Image enhancement Definity was used for left [...] have questions please contact the health director medicare sales that requested your imaging first. CXR 06/08/2021 [...] hysterectomy, Insomnia, and migraine who presents to [facility] with RUQ pain that radiated [...] 15. ?? Hospital Course: On admission to [facility], the patient had no complaints of chest pain or shortness of breath at rest.Telemetry was attached which showed normal sinus rhythm. Heparin drip was infusing. [facility] records[place]transfer records were reviewed. Baseline labs were checked and/or drawn. Chest Pain, SD ruled out, Echo showed preserved LVEF Given the patient's risk factors, chronic non-specific ST-T changes on ECG, and here at [facility] normaltroponin as well as reproducible chest tenderness [...] significant weight, however during her stay at [facility] now she lost only 0.9 kg, to [...] needed Follow up Appointments: PCP Tim Rogers, AUTOMOTIVE INTERNET SALES MANAGER [phone] to see you in a week (patient to set this up) Mel placed on 06/09/2021 Cardiology to see in a month and prn. Dr. Kinsey to see the patient in [place] on July 23 at 920 am. Please call [phone] with questions. Home oxygen therapy: N/A Arrangements for VNA/home care: none Future Appointments and Orders Future Appointments and Orders Future Appointments Provider Department Dept Phone 07/23/2021 8:20 AM Jaspreet Kinsey MD Cardiology at [place] Arrive at: [facility] [address] [phone] Future Orders Complete By Expires Ziopatch 48 Hrs-15 Days [[id number] CPT(R)] 06/09/2021 12/09/2021 Process Instructions: Scheduling Instructions: Questions: Does the patient have a pacemaker? If yes provide HI/LO settings: Apply for 7 or 14 days?: 14 Where will study be performed?: [facility] Clinics Basic Metabolic Panel (non-fasting) [LAB15 Custom] 06/16/2021 (Approximate) 06/09/2022 Process Instructions: INCLUDES: Calcium, BUN, Creat, GFR, Glucose, Lytes Scheduling Instructions: Comments: Questions: Discharge References/Attachments None documented in this encounter Discharge Instructions * Discharge Instructions* Deja Zaidi PA - 06/08/2021 1:56 PM EDT Return to work: One week Driving: as needed Follow up Appointments: PCP Tim Rogers, AUTOMOTIVE INTERNET SALES MANAGER [phone] to see you in a week (patient to set this up) Ziopatch placed on 06/09/2021 Cardiology to see in a month and prn. Dr. Kinsey to see the patient in [place] on July 23 at 920 am. Please call [phone] with questions. Home oxygen therapy: N/A Arrangements for VNA/home care: none documented in this encounter Medications at Time of Discharge Medication Sig Dispensed Refills Start Date End Date rOPINIRole (Requip) 1 mg Tablet Take 2 mg by mouth 2 times daily. 07/16/2020 loratadine (Claritin) 10 mg Tablet Take 10 mg by mouth daily as needed. fluticasone propionate (FLONASE) 50 mcg/actuation Timnath, Suspension 1 spray by Each Nare route [...] Nutrition Plan: Pt seen for Na2gm diet. Senior Clinical Research Scientist informed pt of current diet orders and their restrictions. Pt expressed understanding and informed this marketing underwriter that she tries to limit salt use at home. Senior Clinical Research Scientist and pt discussed common sources of sodium (pre-prepared foods) and alternatives (fresh/frozen veggies). Provided educational material and encouraged pt to reach out with any questions or concerns. Will continue to monitor and follow up. Continue current diet. Monitor weight. Encourage good oral intake. Support and encouragement provided. Discussed case with Clinical Dietitian Active Orders Diet Daily Healthy Menu Choices/Cardiac diet ([facility]-Diet) 2 GM NA Frequency: Effective Now Number [...] nausea and no vomiting Last Bowel Movement: (BLUEPRINT ASSEMBLER) Patient education / questions: provided diet order education and patient with good understanding, written education and contact information provided and all nutrition related questions answered at this time Nutrition services to follow weekly through hospital course unless consulted in the interim. Rocio Rosenthal Pager: [phone] * Deja Zaidi PA - 06/09/2021 9:14 AM EDT Inpatient Cardiology Discharge Day Note Patient Name: Loida Roque Service: OCCUPATIONAL THERAPY MANAGER / PA Responsible Attending: Mario Hallman MD [...] (from the past 24 hour(s)) urine, qualitative ([place]/[facility]/P/NL) Result Value Ref Range Spec [place] UA 1.010 1.006 - 1.030 HCG Qual [...] seen on recent CT scan presents to [facility] from [facility] with a NSTEMI. She has [...] with Dr. Hallman. ?? JOCY Hernandez Pager [phone] JOCY MCKOY 06/09/2021 Associated attestation - Mario Hallman MD - 06/09/2021 9:37 PM EDT Cardiology Attending Addendum I shared this visit with JOCY Zaidi and guided the medical decision- making. I explained to patient the findings of echo, R heart catheterization and our diagnostic impression and medications (furosemide and empagliflozin) and possible adverse events. More than 30 minutes were spent in rocl-na-obvd contact with patient and with arranging discharge [...] Jaspreet Pardo - 06/08/2021 8:34 PM EDT Spike Maker Encounter Note Patient Name: Loida Roque : [id number] MR#: [id number] Admit Date: 06/07/2021 3:49 PM Hospital Day 0 days Narrative: Initial rounding visit to introduce retail service representative services and to assess patient interest. Patient [...] Day Note Patient Name: Loida Roque Service: OCCUPATIONAL THERAPY MANAGER / PA Responsible Attending: Mario Hallman MD [...] ??? heparin (porcine) infusion 1,100 Units/hr (06/08/21 0786) PRN Meds:hydrOXYzine, heparin (porcine) infusion AND heparin [...] PCR Not Detected Not Detected SARS-CoV-2 Source OCCUPATIONAL THERAPY MANAGER Swab Troponin Result Value Ref Range Troponin-T [...] seen on recent CT scan presents to [facility] from [facility] with a NSTEMI. She has [...] with Dr. Hallman. ?? 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 ??? fluticasone propionate (FLONASE) 50 mcg/actuation Timnath, Suspension 1 spray by Each Nare route [...] seen on recent CT scan presents to [facility] with a NSTEMI. She has an elevated trop, BNP and lateral EKG changes. Patient is now awaiting an Echo and cardiac cath. Neurology consult called in to determine if she needs imaging prior to her Echo and cath given garbled speech a week ago. Stable at this time. TREATMENT PLAN: NSTEMI Admit [facility] for telemetry monitoring Serial enzymes and [...] JOCY Hernandez 06/07/2021 Provider: JOCY MCKOY Pager [phone] 06/07/2021 Associated attestation - Mario Hallman MD [...] COVID test: Lab Results Component Value Date [id number] Not Detected 06/07/2021 Present on Admission: ??? NSTEMI (non-ST elevated myocardial infarction) ??? Asthma ??? MARYLOU on CPAP ??? Insomnia ??? Chronic heart failure with preserved ejection fraction Hospitalizations Within the Past 30 Days: no previous admission in last 30 days Patient receiving hospital care under Observation status. Admission order reviewed. Primary Insurance on file: [facility] Secondary Insurance on file:@ Primary care provider on file: Tim Rogers APRN [phone] Pharmacy: [id number] - [place], [place] - [address] [place] [address] Advance Care Planning: Attempt Cardiopulmonary Resuscitation - Inpatient <no information> -Advanced Directive: No, declines (Boby (spouse) SDM) Current Functional Ability: Independent Functional Status Prior to Admission: Independent Home Environment: Others in the home: spouse. Current Living Arrangements: home/apartment/condo. Accessibility Concerns: . Current DME: none [address] [place] [address] Social & Family Supports: All names listed [...] private vehicle when medically ready. Registered Nurse Glost Placer / [employer] Truck Driver will continue to follow patient???s progress and [...] Daily. ??? 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 Consider LITHOGRAPHIC PROOFER consult for full evaluation and diet recommendations. [...] for further details. JOCY MCKOY 06/07/2021 Pager [phone] documented in this encounter Plan of Treatment Upcoming Encounters Date Type Department Care Team (Late st Contact Info) Description 10/08/2023 8:30 AM EDT Tech Visit Vascular Lab at [place] [phone] [place] 10/08/2023 9:30 AM EDT Office Visit [place] [address] MD [facility] [place] [address] 10/21/2023 10:30 AM EDT Appointment [place] [phone] Mary Reyes [facility] [place] [address] 10/21/2023 11:30 AM EDT Appointment [place] [phone] Mary Reyes [facility] [place] [address] 10/21/2023 12:30 PM EDT Appointment [place] [phone] Mary Reyes [facility] [place] [address] 10/21/2023 1:30 PM EDT Appointment [place] [address] Mary Reyes APRN [facility] [place] [address] 10/21/2023 2:30 PM EDT Appointment [place] [address] Mary Reyes AUTOMOTIVE INTERNET SALES MANAGER [facility] [place] [address] 10/26/2023 4:00 PM EDT Office Visit Cardiology at [address] [phone] Jaspreet Kinsey MD [facility] [place] [address] 10/28/2023 9:00 AM EDT Office [place] [address] 10/29/2023 10:00 AM EDT Clinical [place] [address] 10/29/2023 10:15 AM EDT Procedure [place] [address] 11/01/2023 5:00 PM EDT Office Visit [place] [phone] Selene Browning, PhD [facility] [place] [address] 11/22/2023 4:40 PM EDT Office Visit Cardiology at [address] [phone] Porsha Mcdaniels MD [facility] [place] [address] 12/13/2023 10:00 AM EDT Clinical Support [place] [address] Lucero Romero, [facility] [place] [address] documented as of this encounter Procedures Procedure [...] (non-ST elevated myocardial infarction) RAPID COVID-19 PCR ([facility]/APD/NLH) Routine 06/07/2021 4:30 PM EDT documented in this encounter Results * Ziopatch 48 Hrs-15 Days (06/09/2021 3:48 PM EDT) Anatomical Region Laterality Modality Other Narrative 07/01/2021 9:29 AM EDT [facility] ? Zio Patch? Ambulatory Cardiac Event Monitor [...] atrial premature beat conducted with a prolonged WI interval, strongly suggestive of atrioventricular makayla reentrant [...] as described ?? Kurt Larose MD, PhD, [facility] Cardiac Electrophysiology Mario Hallman MD CARDIAC SERVICES ORD ERABLES * CARDIAC CATHETERIZATION (06/09/2021 9:05 AM EDT) Anatomical Region Laterality Modality Other Narrative 06/09/2021 9:09 AM EDT ?[facility] ? Cardiac Catheterization/Intervention Report ? Patient Name: Neisha, Loida ? Procedure Date: 06/09/2021 ? A #: [id number] ? Primary Physician: Nilsa, Aaron Santana ? Case #: [id number] ? File Name: [id number] ? Catheterization Order Number: [id number] ? [facility] ? Final Report [place], [place] ? Patient Name: ? Loida Neisha ? ID#: ?[id number] ? : ?1970 ? Procedure Date: ? [...] was ?designated as ASA Class III. The [facility] clinical frailty scale is 2: Well. ? Diagnostic Tests: ?Prior Coronary Angiography: ? Prior coronary angiography was performed on 08/30/2019 and showed no ? CAD. LV ejection fraction within 6 months is 61%. ?Electrocardiography: ? EKG was assessed by ECG. EKG was Abnormal. EKG showed other ? abnormality. ?Medications Prior to Procedure: ? Angiotensin Converting Enzyme Inhibitor, Aspirin, Beta Suh and ? Statin. ? Indications for Diagnostic Cath: ?The priority of the diagnostic procedure was Urgent. The indication for ?the matlab developer visit is other indication. Chest pain symptom [...] Procedure Note Aaron Ash MD - 06/23/2021 [facility] Cardiac Catheterization/Intervention Report Patient Name: Loida Roque Procedure Date: 06/09/2021 A #: [id number] Primary Physician: Aaron Ash Case #: [id number] File Name: [id number] Catheterization Order Number: [id number] [facility] FinalReport [place], [place] Patient Name: Loida Roque ID#:[id number] :1970 Procedure Date: June 09, 2021 Case [...] patientwas designated as ASA Class III. The [facility] clinical frailty scale is 2:Well. Diagnostic [...] diagnostic procedure was Urgent. The indicationfor the matlab developer visit is other indication. Chest pain symptomassessment [...] was present for the entire procedure. Dr. Araon Ash M.D. performed the right heart catheterization and oximetry. Aaron Ash M.D. Electronically Signed by: Aaron Ash M.D. Report Finalized: 06/09/2021 09:01 Report Last Ammended: 06/23/2021 09:51 Aaron Ash MD CARDIAC CATH ORDERAB LES * (ABNORMAL) pro-Brain Natriuretic Peptide (06/09/2021 3:37 AM EDT) ProBNP 911(H) <=124 pg/mL [facility] Blood Venous Draw / Unknown 06/09/2021 3:37 AM EDT 06/09/2021 3:59 AM EDT Narrative Resulting Agency Comment Spec In Lab Deja SANDRA CHEMISTRY ORDERABLES [facility] [place] [address] * Differential, Automated (06/09/2021 3:37 AM EDT) Pathologist [facility] Neutrophils % 64.9 % [facility] Neutr Abs (ANC) 5.12 1.70 - 6.10 x10(3)/[facility] Lymphocytes % 21.9 % [facility] Lymphocytes Abs 1.7 0.9 - 3.2 x10(3)/[facility] Monocytes % 8.6 % [facility] Monocyte Abs 0.7 0.3 - 0.9 x10(3)/[facility] Eosinophils % 3.4 % [facility] Eosinophils Abs 0.3 0.0 - 0.4 x10(3)/[facility]OR[facility] Basophils % 0.8 % [facility] Basophils Abs 0.1 0.0 - 0.1 x10(3)/[facility]OR[facility] Immature Gran % 0.40 % [facility] Comment: Immature granulocytes(IG's)percentage and absolute count will include metamyelocytes, myelocytes, and promyelocytes. Blood smears from CBCs yielding IG's will be scanned manually for concordance. If this scan disagrees with the automated IG or if promyelocytes are noted, a manual differential will be performed. Shonda Gran Abs 0.03 0.00 - 0.04 x10(3)/[facility] Blood 06/09/2021 3:37 AM EDT 06/09/2021 3:58 AM EDT Narrative Resulting Agency Comment Spec In Lab Deja SANDRA HEMATOLOGY ORDERABLE S [facility] [place] [address] * (ABNORMAL) Hemogram (06/09/2021 3:37 AM EDT) Pathologist [facility] WBC 7.9 4.0 - 9.5 x10(3)/[facility] RBC 4.88 4.00 - 5.21 x10(6)/[facility] Hemoglobin 15.2 11.7 - 15.5 g/dL [facility] Hematocrit 46.5(H) 35.7 - 45.8 % [facility] MCV 95.3(H) 82.6 - 94.[address] [facility] MCH 31.1 27.1 - 32.[address] [facility] MCHC 32.7 31.7 - 35.0 g/dL [facility] Platelets 334 145 - 357 x10(3)/[facility] LABOR[facility] RDWSD 49.2(H) 37.0 - 46.0 [facility] RDWCV 14.5(H) 11.5 - 14.1 % [facility] MPV 10.2 7.6 - 12.9 [facility] nRBC % Auto 0.0 % [facility] nRBC Abs Auto 0.000 0.000 - 0.000 x10(3)/[facility] Blood 06/09/2021 3:37 AM EDT 06/09/2021 3:58 AM EDT Narrative Resulting Agency Comment Spec In Lab Deja SANDRA HEMATOLOGY ORDERABLE S [facility] [place] [address] * (ABNORMAL) BMP w/fasting Glucose (06/09/2021 3:37 AM EDT) Pathologist [facility] Glucose Fasting 103(H) 65 - 99 mg/dL [facility] Comment: ?Fasting* Glucose Interpretive Criteria [...] of Diabetes Mellitus, Position Statement from the [place] [employer]. ??Diabetes Care, Volume 33, Supplement 1, Mar 2009 BUN 23(H) 8 - 18 mg/dL [facility] Creatinine 0.86 0.70 - 1.20 mg/dL [facility] Sodium 137 135 - 145 mmol/L [facility] Potassium 4.1 3.5 - 5.0 mmol/L [facility] Comment: Please note: ??Patients with WBC >100,000 may have falsely elevated Potassium levels. ??For accurate Potassium quantification in these patients send serum separator tube (gold top) for subsequent determinations. ??Contact the Clinical Chemistry Laboratory if there are any questions. Chloride 102 98 - 107 mmol/L [facility] CO2 22 22 - 31 mmol/L [facility] Anion Gap 13 5 - 15 mmol/L [facility] Calcium 9.3 8.5 - 10.5 mg/dL [facility] Estimated GFR 78 >=60 mL/min/1. 73 m?? [facility] Comment: This patient? s estimated [...] Performing Organization Address [facility] Co de Phone Number [facility] [place] [address] * Heparin (unfractionated) Level (06/08/2021 4:07 PM EDT) Heparin UFH Level <0.04 IU/mL [facility] Comment: Heparin (anti-Xa) levels should [...] Performing Organization Address [facility] Co de Phone Number [facility] [place] [address] * XR Chest PA & Lateral (Generic) [...] have questions please contact the health director medicare sales that requested your imaging first. ? Narrative [...] who have questions please contactthe health director medicare sales that requested your imaging first. Electronically signed by: Magda Machado MD, [facility] ([phone]), at 06/08/2021 6:00 PM Mario Helisch MD [...] have questions please contact the health director medicare sales that requested your imaging first. ? Narrative [...] who have questions please contactthe health director medicare sales that requested your imaging first. Mario Hallman MD IMG MRI ORDERABLES * (ABNORMAL) CRP, acute inflammation (06/08/2021 11:58 AM EDT) Pathologist [facility] CRP 28.1(H) <=4.9 mg/L [facility] Blood 06/08/2021 11:5 8 AM EDT 06/08/2021 12:04 PM EDT Narrative Resulting Agency Comment Spec In Lab Mario Hallman MD CHEMISTRY ORDERABLES Performing Organization Address City/[facility]/ZIP Co de Phone Number [facility] [place] [address] * CK (06/08/2021 11:58 AM EDT) Pathologist [facility] CK, Total 30 0 - 160 unit/L [facility] Blood 06/08/2021 11:5 8 AM EDT 06/08/2021 12:04 PM EDT Narrative Resulting Agency Comment Spec In Lab Mario Hallman MD CHEMISTRY ORDERABLES Performing Organization Address [facility]/ZIP Co de Phone Number [facility] [place] [address] * (ABNORMAL) Sedimentation rate (06/08/2021 11:58 AM EDT) Pathologist [facility] Sed Rate 53(H) 2 - 39 mm/hr [facility] Comment: Effective February 15, 2019 [...] Performing Organization Address [facility] Co de Phone Number [facility] [place] [address] * Heparin (unfractionated) Level (06/08/2021 11:58 AM EDT) Heparin UFH Level 0.77 IU/mL [facility] Comment: Heparin (anti-Xa) levels should [...] Performing Organization Address [facility]/ZIP Co de Phone Number [facility] [place] [address] * urine, qualitative ([facility]/CG[facility]/NLH) (06/08/2021 11:51 AM EDT) Spec [place] UA 1.010 1.006 - 1.030 [facility] HCG Qual Negative [facility] Comment: Dilute urine samples can result in a false negative test. Repeat testing on a first morning sample or a plasma quantitative hCG measurement is recommended. Urine 06/08/2021 11:5 1 AM EDT 06/08/2021 12:32 PM EDT Narrative Resulting Agency Comment Spec In Lab Mario Hallman MD URINE ORDERABLES [facility] [place] [address] * ECHO COMPLETE W CONTRAST (06/08/2021 11:09 AM EDT) Anatomical Region Laterality Modality Other 06/08/2021 9:35 AM EDT Narrative 06/08/2021 12:42 PM EDT ?[facility] ? [facility] Center ?[address] ? [place] [address] ?Voice: ?Fax: ? Echocardiogram Report Name: LOIDA ROQUE ? Study Date: 06/08/2021 09:35 AMBP: 109/69 mmHg ? Patient Location: [facility]^432^A : 1970 ? Height: 163 cm ? Account: [id number] Age: 51 yrs ? Weight: 95 kg Gender: Female ?BSA: 2.0 m2 Ordering Physician: DONALD Referring Physician: AJ HARTMAN Performed By: Aaron Herr RDCS Reason For Study: NSTEMI (non-ST elevated myocardial infarction) Exam Location: [facility]. Interpretation Summary 1. Left ventricle is of [...] significant change from prior in 08/2019. Procedure Complete-[id number]. Image enhancement Definity was used for left [...] Procedure Note Kai Haider MD - 06/08/2021 [place] [address] Voice: Fax: Echocardiogram Report Name: LOIDA ROQUE Study Date: 209:35 AMBP: 109/69 mmHg Patient Location:[place] [address]^A : 1970 Height: 163 cm Account: [id number] Age: 51 yrs Weight: 95 kg Gender: Female BSA: 2.0 m2 Ordering Physician: DONALD Referring Physician: AJ HARTMAN Performed By: Aaron Herr RDCS Reason For Study: NSTEMI (non-ST elevated myocardial infarction) Exam Location: [facility]. Interpretation Summary 1. Left ventricle is of [...] significant change from prior in 08/2019. Procedure Complete-[id number]. Image enhancement Definity was used for left [...] EDT) Heparin UFH Level 1.20(Crit ical) IU/mL [facility] Comment: Critical Result called by [...] MD HEMATOLOGY ORDERABLE S Performing Organization Address City/[facility]/ZIP Co de Phone Number [facility] [place] [address] * (ABNORMAL) Differential, Automated (06/08/2021 4:41 AM EDT) Neutrophils % 71.8 % [facility] Neutr Abs (ANC) 8.09(H) 1.70 - 6.10 x10(3)/ L [facility] Lymphocytes % 18.0 % [facility] Lymphocytes Abs 2.0 0.9 - 3.2 x10(3)/[facility] Monocytes % 5.7 % [facility] Monocyte Abs 0.6 0.3 - 0.9 x10(3)/[facility] Eosinophils % 3.5 % [facility] Eosinophils Abs 0.4 0.0 - 0.4 x10(3)/[facility] Basophils % 0.6 % [facility] Basophils Abs 0.1 0.0 - 0.1 x10(3)/[facility] Immature Gran % 0.40 % [facility] Comment: Immature granulocytes(IG's)percentage and absolute count will include metamyelocytes, myelocytes, and promyelocytes. Blood smears from CBCs yielding IG's will be scanned manually for concordance. If this scan disagrees with the automated IG or if promyelocytes are noted, a manual differential will be performed. Shonda Gran Abs 0.05(H) 0.00 - 0.04 x10(3)/ L [facility] Blood 06/08/2021 4:41 AM EDT 06/08/2021 5:11 AM EDT Narrative Resulting Agency Comment Spec In Lab Deja SANDRA HEMATOLOGY ORDERABLE S Performing Organization Address City/[facility]/ZIP Co de Phone Number [facility] [place] [address] * (ABNORMAL) Hemogram (06/08/2021 4:41 AM EDT) WBC 11.3(H) 4.0 - 9.5 x10(3)/[facility]AT[facility] RBC 4.64 4.00 - 5.21 x10(6)/[facility] LAB[facility]ATORY Hemoglobin 13.9 11.7 - 15.5 g/dL [facility] Hematocrit 43.0 35.7 - 45.8 % [facility] MCV 92.7 82.6 - 94.4 [facility] MCH 30.0 27.1 - 32.[address] [facility] MCHC 32.3 31.7 - 35.0 g/dL [facility] Platelets 312 145 - 357 x10(3)/[facility] LABORATORY RDWSD 47.4(H) 37.0 - 46.0 [facility] RDWCV 14.3(H) 11.5 - 14.1 % [facility] MPV 10.8 7.6 - 12.9 [facility] nRBC % Auto 0.0 % [facility] nRBC Abs Auto 0.000 0.000 - 0.000 x10(3)/[facility] Blood 06/08/2021 4:41 AM EDT 06/08/2021 5:11 AM EDT Narrative Resulting Agency Comment Spec In Lab Deja SANDRA HEMATOLOGY ORDERABLE S [facility] [place] [address] * (ABNORMAL) Heparin (unfractionated) Level (06/08/2021 4:41 AM EDT) Heparin UFH Level 1.06(Crit ical) IU/mL [facility] Comment: Critical Result called by [...] MD HEMATOLOGY ORDERABLE S Performing Organization Address City/State/[facility] Co de Phone Number [facility] [address] * (ABNORMAL) BMP w/fasting Glucose (06/08/2021 4:41 AM EDT) Glucose Fasting 95 65 - 99 mg/dL [facility] Comment: ?Fasting* Glucose Interpretive Criteria [...] of Diabetes Mellitus, Position Statement from the [place] [employer]. ??Diabetes Care, Volume 33, Supplement 1, Mar 2009 BUN 21(H) 8 - 18 mg/dL [facility] Creatinine 0.87 0.70 - 1.20 mg/dL [facility] Sodium 138 135 - 145 mmol/L [facility] Potassium 4.1 3.5 - 5.0 mmol/L [facility] Comment: Please note: ??Patients with WBC >100,000 may have falsely elevated Potassium levels. ??For accurate Potassium quantification in these patients send serum separator tube (gold top) for subsequent determinations. ??Contact the Clinical Chemistry Laboratory if there are any questions. Chloride 103 98 - 107 mmol/L [facility] CO2 22 22 - 31 mmol/L [facility] Anion Gap 13 5 - 15 mmol/L [facility] Calcium 8.7 8.5 - 10.5 mg/dL [facility] Estimated GFR 77 >=60 mL/min/1. 73 m?? [facility] Comment: This patient? s estimated [...] In Lab Mario Hallman MD CHEMISTRY ORDERABLES [facility] [place] [place] [address] * Troponin (06/08/2021 4:41 AM EDT) Troponin-T <0.01 0.00 - 0.00 ng/mL [facility] Comment: The 99th percentile for Troponin T is less than 0.01 ng/mL, any detectable cTnT concentration using this assay should be considered elevated. According to the third universal definition of myocardial infarction the following criteria with a clinical presentation consistent with acute myocardial ischemia meets the diagnosis for a myocardial infarction (SD). Detection of a rise and/or fall of cTnT, with at least one value greater than the 99th percentile (> or = 0.01) and with at least one of the following ?? Symptoms of ischemia ?? New or presumed new significant NW-aumioql-O wave (ST-T) changes or new left bundle [...] additional sample may be indicated. Reference: Third [place] Definition of Myocardial Infarction. Journal of the [place] [employer] 2012;60:1581-98 Blood 06/08/2021 4:41 AM EDT 06/08/2021 5:12 AM EDT Narrative Resulting Agency Comment Spec In Lab Mario Hallman MD CHEMISTRY ORDERABLES [facility] [place] [place] [address] * Heparin (unfractionated) Level (06/07/2021 9:55 PM EDT) Heparin UFH Level 0.08 IU/mL [facility] Comment: Heparin (anti-Xa) levels should [...] Lab Mario Hallman MD HEMATOLOGY ORDERABLE S [facility] [place] [address] * (ABNORMAL) pro-Brain Natriuretic Peptide (06/07/2021 5:26 PM EDT) ProBNP 2,701(H) <=124 pg/mL [facility] Blood Venous Draw / Unknown 06/07/2021 5:26 PM EDT 06/07/2021 5:44 PM EDT Narrative Resulting Agency Comment Spec In Lab Deja SANDRA CHEMISTRY ORDERABLES Performing Organization Address City/[facility]/ZIP Co de Phone Number [facility] [place] [place] [address] * (ABNORMAL) Differential, Automated (06/07/2021 5:26 PM EDT) Neutrophils % 74.6 % [facility] Neutr Abs (ANC) 8.97(H) 1.70 - 6.10 x10(3)/mc L [facility] Lymphocytes % 15.9 % [facility] Lymphocytes Abs 1.9 0.9 - 3.2 x10(3)/mc L [facility] Monocytes % 6.0 % [facility] Monocyte Abs 0.7 0.3 - 0.9 x10(3)/mc L [facility] Eosinophils % 2.6 % [facility] Eosinophils Abs 0.3 0.0 - 0.4 x10(3)/mc L [facility] Basophils % 0.5 % [facility] Basophils Abs 0.1 0.0 - 0.1 x10(3)/mc L [facility] Immature Gran % 0.40 % [facility] Comment: Immature granulocytes(IG's)percentage and absolute count will include metamyelocytes, myelocytes, and promyelocytes. Blood smears from CBCs yielding IG's will be scanned manually for concordance. If this scan disagrees with the automated IG or if promyelocytes are noted, a manual differential will be performed. Shonda Gran Abs 0.05(H) 0.00 - 0.04 x10(3)/mc L [facility] Blood 06/07/2021 5:26 PM EDT 06/07/2021 5:36 PM EDT Narrative Resulting Agency Comment Spec In Lab Deja SANDRA HEMATOLOGY ORDERABLE S Performing Organization Address City/State/[facility] Co de Phone Number [facility] [place] [address] * (ABNORMAL) Hemogram (06/07/2021 5:26 PM EDT) WBC 12.0(H) 4.0 - 9.5 x10(3)/[facility] RBC 4.72 4.00 - 5.21 x10(6)/[facility] Hemoglobin 14.5 11.7 - 15.5 g/dL [facility] Hematocrit 44.0 35.7 - 45.8 % [facility] MCV 93.2 82.6 - 94.[address] [facility] MCH 30.7 27.1 - 32.[address] [facility] MCHC 33.0 31.7 - 35.0 g/dL [facility] Platelets 346 145 - 357 x10(3)/[facility] RDWSD 47.2(H) 37.0 - 46.[address] [facility] RDWCV 14.4(H) 11.5 - 14.1 % [facility] MPV 10.6 7.6 - 12.[address] [facility] nRBC % Auto 0.0 % [facility] nRBC Abs Auto 0.000 0.000 - 0.000 x10(3)/mcL [facility] Blood 06/07/2021 5:26 PM EDT 06/07/2021 5:36 PM EDT Narrative Resulting Agency Comment Spec In Lab Deja SANDRA HEMATOLOGY ORDERABLE S [facility] [place] [address] * BMP w/fasting Glucose (06/07/2021 5:26 PM EDT) Glucose Fasting 90 65 - 99 mg/dL [facility] Comment: ?Fasting* Glucose Interpretive Criteria [...] of Diabetes Mellitus, Position Statement from the [place] [employer]. ??Diabetes Care, Volume 33, Supplement 1, Mar 2009 BUN 18 8 - 18 mg/dL [facility] Creatinine 1.07 0.70 - 1.20 mg/dL [facility] Sodium 137 135 - 145 mmol/L [facility] Potassium 4.3 3.5 - 5.0 mmol/L [facility] Comment: Please note: ??Patients with WBC >100,000 may have falsely elevated Potassium levels. ??For accurate Potassium quantification in these patients send serum separator tube (gold top) for subsequent determinations. ??Contact the Clinical Chemistry Laboratory if there are any questions. Chloride 101 98 - 107 mmol/L [facility] CO2 24 22 - 31 mmol/L [facility] Anion Gap 12 5 - 15 mmol/L [facility] Calcium 9.1 8.5 - 10.5 mg/dL [facility] Estimated GFR 60 >=60 mL/min/1. 73 m?? [facility] Comment: This patient? s estimated [...] Performing Organization Address [facility]/ZIP Co de Phone Number [facility] [place] [address] * T3 Total (06/07/2021 5:26 PM EDT) T3, Total 134 80 - 200 ng/dL [facility] Blood 06/07/2021 5:26 PM EDT 06/07/2021 5:36 PM EDT Narrative Resulting Agency Comment Spec In Lab Mario Hallman MD CHEMISTRY ORDERABLES Performing Organization Address [facility]/ZIP Co de Phone Number [facility] [place] [place] [address] * T4 Total (06/07/2021 5:26 PM EDT) T4, total 6.8 5.3 - 11.6 mcg/dL [facility] Comment: Reference Interval (mcg/dL): Females: ??First Trimester: 6.3-13.5 ??Second Trimester: 7.1-14.3 ??Third Trimester: 6.9-14.1 Blood 06/07/2021 5:26 PM EDT 06/07/2021 5:36 PM EDT Narrative Resulting Agency Comment Spec In Lab Mario Hallman MD CHEMISTRY ORDERABLES Performing Organization Address City/[facility]/ZIP Co de Phone Number [facility] [place] [place] [address] * (ABNORMAL) TSH (06/07/2021 5:26 PM EDT) TSH 5.83(H) 0.27 - 4.20 mcIU/mL [facility] Comment: Reference Interval (mcIU/mL): Females: ??First Trimester: 0.23-3.88 ??Second Trimester: 0.22-3.90 ??Third Trimester: 0.44-4.66 Blood 06/07/2021 5:26 PM EDT 06/07/2021 5:36 PM EDT Narrative Resulting Agency Comment Spec In Lab Mario Hallman MD CHEMISTRY ORDERABLES Performing Organization Address City/[facility]/ZIP Co de Phone Number [facility] [place] [address] * Lipase (06/07/2021 5:26 PM EDT) Lipase 18 0 - 60 unit/L [facility] Blood 06/07/2021 5:26 PM EDT 06/07/2021 5:36 PM EDT Narrative Resulting Agency Comment Spec In Lab Mario Hallman MD CHEMISTRY ORDERABLES Performing Organization Address City/[facility]/ZIP Co de Phone Number [facility] [place] [address] * Amylase (06/07/2021 5:26 PM EDT) Amylase 39 28 - 100 unit/L [facility] Blood 06/07/2021 5:26 PM EDT 06/07/2021 5:36 PM EDT Narrative Resulting Agency Comment Spec In Lab Mario Hallman MD CHEMISTRY ORDERABLES [facility] [place] [place] [address] * Lipid Panel (Reflex Direct LDL) (06/07/2021 5:26 PM EDT) Chol, Total 164 mg/dL [facility] Comment: Lower Risk: <200 mg/dL Average Risk: 200-239 mg/dL Higher Risk: >kv=848 mg/dL Triglycerides 144 mg/dL [facility] Comment: Average Risk/Lower Risk: <150 mg/dL Borderline High Risk: 150-199 mg/dL High Risk: 200-499 mg/dL Very High Risk: >hb=943 mg/dL HDL 44 mg/dL [facility] Comment: Males: ?? Higher Risk: <40 mg/dL Females: ?? Higher Risk: <50 mg/dL LDL Cholesterol 91 mg/dL [facility] Comment: Lowest Risk: <100 mg/dL Lower Risk: 100-129 mg/dL Borderline High Risk: 130-159 mg/dL High Risk: 160-189 mg/dL Very High Risk: >jn=886 mg/dL Chol/HDL Ratio 3.[address] [facility] Lipid Interpretation See Note [facility] Comment: Lipid management should be guided by a patient? s ASCVD risk, goals and preferences. ACC/AHA Guidelines recommend high intensity statin if clinical ASCVD or LDL greater than or equal to 190 mg/dL. http://tinyurl.com/VGG-VFZ-Rcueeawha Adults aged 40-75 with LDL 70-189 mg/dL should have their 10 year ASCVD risk estimated with the ACC/AHA ASCVD risk lumber estimator http://tools.acc.org/HCAJN-Kqbu-Lkwspumef/ Statin should be discussed if risk greater [...] Hallman MD CHEMISTRY ORDERABLES Performing Organization Address City/[facility] Co de Phone Number [facility] [place] [address] * CK (06/07/2021 5:26 PM EDT) CK, Total 33 0 - 160 unit/L [facility] Blood 06/07/2021 5:26 PM EDT 06/07/2021 5:36 PM EDT Narrative Resulting Agency Comment Spec In Lab Mario Hallman MD CHEMISTRY ORDERABLES Performing Organization Address [facility] Co de Phone Number [facility] [place] [address] * Hemoglobin A1c (06/07/2021 5:04 PM EDT) [facility] Hemoglobin A1C 5.6 4.3 - 5.6 % [facility] Comment: Reference Range: 4.3 - [...] into estimated average glucose values. ??Diabetes Care 2008:31(8):2780-2627. Blood 06/07/2021 5:04 PM EDT 06/07/2021 5:36 PM EDT Narrative Resulting Agency Comment Spec In Lab Mario Hallman MD CHEMISTRY ORDERABLES [facility] [place] [address] * Troponin (06/07/2021 5:04 PM EDT) Troponin-T <0.01 0.00 - 0.00 ng/mL [facility] Comment: The 99th percentile for Troponin T is less than 0.01 ng/mL, any detectable cTnT concentration using this assay should be considered elevated. According to the third universal definition of myocardial infarction the following criteria with a clinical presentation consistent with acute myocardial ischemia meets the diagnosis for a myocardial infarction (SD). Detection of a rise and/or fall of cTnT, with at least one value greater than the 99th percentile (> or = 0.01) and with at least one of the following ?? Symptoms of ischemia ?? New or presumed new significant LK-ghvjfzy-G wave (ST-T) changes or new left bundle [...] additional sample may be indicated. Reference: Third [place] Definition of Myocardial Infarction. Journal of the [place] [employer] 2012;60:1581-98 Blood 06/07/2021 5:04 PM EDT 06/07/2021 5:36 PM EDT Narrative Resulting Agency Comment Spec In Lab Mario Hallman MD CHEMISTRY ORDERABLES Performing Organization Address [facility] Co de Phone Number [facility] [place] [address] * EKG 12 Lead (06/07/2021 4:33 PM EDT) Ventricular rate 54 BPM MUSE SYSTEM Atrial Rate 54 BPM MUSE SYSTEM P-R Interval 166 ms MUSE SYSTEM QRS Duration 86 ms MUSE SYSTEM Q-T Interval 514 ms MUSE SYSTEM QTC Calculated (Bezet) 487 ms MUSE SYSTEM Calculated P Tynan 30 degrees MUSE SYSTEM Calculated R Tynan 22 degrees MUSE SYSTEM Calculated T Tynan 18 degrees MUSE SYSTEM INTERPRETATION Sinus bradycardia Left atrial enlargement Cannot rule out Lateral infarct , age undetermined Abnormal ECG When compared with ECG of 31-AUG-2019 07:05, No significant change was found Confirmed by MD Dalia, Willy Huerta ([id number]) on 06/09/2021 4:36:27 PM MUSE SYSTEM 06/07/2021 4:33 PM EDT 06/09/2021 4:36 PM EDT Mario Hallman MD ECG ORDERABLES Performing Organization Address [facility] Co de Phone Number MUSE SYSTEM * COVID-19 PCR (06/07/2021 4:30 PM EDT) SARS-CoV-2 RNA PCR Not Detected Not Detected [facility] Comment: This result should be [...] using the Simplexa COVID-19 Direct Assay by [employer] as authorized by the FDA issued Emergency [...] of Pathology and Laboratory Medicine at [facility], certified under the Clinical Laboratory Improvement Amendments [...] fact sheets at the following FDA website: https://www.fda.gov/medical-devices/spbpqtfwgns-ojqonsv-2535-xdfkx-26-ufjjdatuf- use-a nbrrdfzqviazj-bxbaxjn-pguacdy/hskts-fsbaebgswvn-lddz SARS-CoV-2 Source OCCUPATIONAL THERAPY MANAGER Swab MA R[facility] Nasopharyngeal Swab 06/08/19 4:30 PM EDT 06/07/2021 4:45 PM EDT Comment:Symptoms->Surveillan ce Narrative Resulting Agency Comment Spec In Lab Mario Hallman MD MICROBIOLOGY - GENER AL ORDERABLES Performing Organization Address City/State/[facility] Co de Phone Number [facility] [address] documented in this encounter Visit Diagnoses Not [...] 75 mg, Oral, DAILY, First dose on [place] 06/08/21 at 0900, Until Discontinued, Routine Given 06/08/2021 9:08 AM EDT [address] (Cymbalta) capsule 60 mg 60 mg, Oral, DAILY, First dose on 06/07/21 at 1845, Until Discontinued, Routine Given 06/08/2021 9:02 PM EDT 60 mg Given 06/07/2021 9:00 PM EDT 60 mg empagliflozin (Jardiance) Tab 10 mg 10 mg, Oral, DAILY, First dose on [place] 06/08/21 at 1545, Until Discontinued, Routine Given [...] 40 mg, Intravenous, ONCE, 1 dose, On [place] 06/08/21 at 1545 Given 06/08/2021 5:01 PM EDT 40 mg furosemide (Lasix) tablet 20 mg 20 mg, Oral, DAILY, First dose on [facility] 06/07/21 at 1845, Until Discontinued, Routine [...] - Reason: Transfer to a Procedural area)0929 ([facility] Unhold - Provider: Admin Adt) [...] area)0900 (Automatically Held - Provider: Admin Adt)0929 ([facility] Unhold - Provider: Admin Adt) [...] (Given - Provider: Colette Medina RN) 0853 ([facility] Hold - Provider: Admin Adt - Reason: Transfer to a Procedural area)0929 ([facility] Unhold - Provider: Admin Adt) empagliflozin (Jardiance) Tab 10 mg 10 mg, Oral, DAILY, First dose on 06/08/21 at 1545, Until Discontinued, Routine 1717 (Given - Provider: Jo Ann Maldonado RN - Comment: awaiting medication from pharmacy) 0853 ([facility] Hold - Provider: Admin Adt - Reason: Transfer to a Procedural area)0900 (Automatically Held - Provider: Admin Adt)0929 ([facility] Unhold - Provider: Admin Adt)0940 [...] she only takes this as needed.) 0853 ([facility] Hold - Provider: Admin Adt - Reason: Transfer to a Procedural area)0900 (Automatically Held - Provider: Admin Adt)0929 ([facility] Unhold - Provider: Admin Adt) [...] - Provider: Jo Ann Maldonado RN) 0853 ([facility] Hold - Provider: Admin Adt - Reason: Transfer to a Procedural area)0900 (Automatically Held - Provider: Admin Adt)0929 ([facility] Unhold - Provider: Admin Adt)0939 (Given - Provider: Jo Ann Maldonado RN) gabapentin (Neurontin) capsule 300 mg 300 mg, Oral, 2 TIMES DAILY, First dose on 06/07/21 at 2100, Until Discontinued, Routine 2026 (Given - Provider: Olive Anne RN) 0908 (Given - Provider: Jo Ann Maldonado RN)210 (Given - Provider: Colette Medina RN) 0853 ([facility] Hold - Provider: Admin Adt [...] - Provider: Jo Ann Maldonado RN) 0853 ([facility] Hold - Provider: Admin Adt - Reason: Transfer to a Procedural area)0900 (Automatically Held - Provider: Admin Adt)0929 ([facility] Unhold - Provider: Admin Adt)0939 [...] takes this as needed for allergies.) 0853 ([facility] Hold - Provider: Admin Adt - Reason: Transfer to a Procedural area)0900 (Not Given - Provider: Jo Ann Maldonado RN - Reason: Patient/family refused - Comment: only takes as needed)0929 ([facility] Unhold - Provider: Admin Adt) [...] not met - Comment: HR 56) 0853 ([facility] Hold - Provider: Admin Adt - Reason: Transfer to a Procedural area)0900 (Not Given - Provider: Jo Ann Maldonado RN - Reason: Order parameters not met - Comment: HR 48)0929 ([facility] Unhold - Provider: Admin Adt) montelukast (Singulair) tablet 10 mg 10 mg, Oral, NIGHTLY, First dose on 06/07/21 at 2100, Until Discontinued 2025 (Given - Provider: Olive Anne RN) 2058 (Given - Provider: Colette Medina, ERWIN) 0853 ([facility] Hold - Provider: Admin Adt - Reason: Transfer to a Procedural area)0929 ([facility] Unhold - Provider: Admin Adt) rOPINIRole (Requip) tablet 1 mg 1 mg, Oral, NIGHTLY, First dose on 06/07/21 at 2100, Until Discontinued, Routine 2025 (Given - Provider: Olive Anne RN) 2058 (Given - Provider: Colette Medina, ERWIN) 0853 ([facility] Hold - Provider: Admin Adt - Reason: Transfer to a Procedural area)0929 ([facility] Unhold - Provider: Admin Adt) topiramate (Topamax) tablet 50 mg 50 mg, Oral, 2 TIMES DAILY, First dose on 06/07/21 at 2100, Until Discontinued, Routine 2024 (Given - Provider: Olive Anne RN) 1009 (Given - Provider: Jo Ann Maldonado RN - Comment: awaiting medication from pharmacy)2110 (Given - Provider: Colette Medina RN) 0853 ([facility] Hold - Provider: Admin Adt - Reason: Transfer to a Procedural area)0929 ([facility] Unhold - Provider: Admin Adt)1254 (Given - Provider: Jo Ann Maldonado RN - Comment: awaiting medication from pharmacy) traZODone (Desyrel) tablet 100 mg 100 mg, Oral, NIGHTLY, First dose (after last reorder) on 06/07/21 at 2114, Until Discontinued, Routine 2099 (Given - Provider: Olive Anne RN) 2099 (Given - Provider: Colette Medina RN) 0853 ([facility] Hold - Provider: Admin Adt - Reason: Transfer to a Procedural area)0929 ([facility] Unhold - Provider: Admin Adt) [...] Routine documented in this encounter Care Teams Picture Booker Relationship Specialty Start Date End Date Polo Pearce PA [address] [place] [address] PCP - General Internal Medicine 06/09/21 documented as of this encounter
--- OUTSIDE RECORDS SUMMARY | 2023-10-05 17:10 | XMS_ITS | Encounter Summary ---
[place] [address] Care Team Providers Care Varnish Filterer Name Role Phone Tim Rogers DNP Primary Care Provider [phone] Reason for Visit * Reason Onset Date Comments Other 10/25/2020 Regarding Ziopat ch Encounter Details Date Type Department Care Team (Late st Contact Info) Description 10/25/2020 Telephone [place] [phone] Olive Gonzales RN Other (Regarding Ziopatch) Social [...] reach out to Pt. Pt must call [phone] to request Ziopatch. Olive Gonzales RN Department of Pulmonary 5C, [facility] / Pager: [phone] documented in this encounter Plan of Treatment Upcoming Encounters Date Type Department Care Team (Late st Contact Info) Description 10/08/2023 8:30 AM EDT Tech Visit Vascular Lab at [place] [phone] Channing Escobedo [place] 10/08/2023 9:30 AM EDT Office Visit [place] [address] MD [facility] [place] [address] 10/21/2023 10:30 AM EDT Appointment Nuclear Medicine at [place] [phone] [place] [address] 10/21/2023 11:30 AM EDT Appointment Nuclear Medicine at [place] [phone] [place] [address] 10/21/2023 12:30 PM EDT Appointment [place] [address] [place] [address] 10/21/2023 1:30 PM EDT Appointment Nuclear Medicine at [place] [phone] [place] [address] 10/21/2023 2:30 PM EDT Appointment Nuclear Medicine at [place] [phone] Mary Reyes APRN [facility] [place] [address] 10/26/2023 4:00 PM EDT Office Visit Cardiology at [address] [phone] Jaspreet Kinsey MD [facility] [address] 10/28/2023 9:00 AM EDT Office Visit Gastro[place]ology [place] [address] 10/29/2023 10:00 AM EDT Clinical Support G[place] [address] 10/29/2023 10:15 AM EDT Procedure visit Gastro[place] [address] 11/01/2023 5:00 PM EDT Office Visit Gastroenterology at [place] [phone] Selene Browning, PhD [facility] [address] 11/22/2023 4:40 PM EDT Office Visit Cardiology at [address] [phone] Porsha Mcdaniels MD [facility] [address] 12/13/2023 10:00 AM EDT Clinical Support [place] [address] Lucero Romero, AL[place] [facility] [place] [place] [address] documented as of this encounter Visit Diagnoses Not on filedocumented in this encounter Care Teams Varnish Filterer Relationship Specialty Start Date End Date Tim Rogers DNP PCP - General Family Medicine 08/28/19 06/08/21 documented as of this encounter
--- OUTSIDE RECORDS SUMMARY | 2023-10-05 17:10 | XMS_ITS | Encounter Summary ---
[place] [address] Care Team Providers Care Marketing Data Specialist Name Role Phone Tim Rogers DNP Primary Care Provider Encounter Details Date Type Department Care Team (Late st Contact Info) Description 05/02/2021 Ancillary Procedure [place] [phone] Tim Rogers DNP [address] [place] [address] Social History Tobacco Use Types [...] AM EDT Tech [place] [phone] Channing Escobedo [place] 10/08/2023 9:30 AM EDT Office Visit Vascular [place] [address] MD [facility] [place] [address] 10/21/2023 10:30 AM EDT Appointment Nuclear Medicine at [place] [phone] Mary Reyes [facility] [place] [address] 10/21/2023 11:30 AM EDT Appointment [place] [phone] [place] [address] 10/21/2023 12:30 PM EDT Appointment [place] [phone] Mary Reyes [facility] [place] [address] 10/21/2023 1:30 PM EDT Appointment [place] [phone] Mary Reyes [facility] [place] [address] 10/21/2023 2:30 PM EDT Appointment [place] [phone] Mary Reyes [facility] [place] [address] 10/26/2023 4:00 PM EDT Office Visit Cardiology at [address] [phone] Jaspreet Kinsey MD [facility] [place] [address] 10/28/2023 9:00 AM EDT Office [place] [address] 10/29/2023 10:00 AM EDT Clinical Support [place] [address] 10/29/2023 10:15 AM EDT Procedure [place] [address] 11/01/2023 5:00 PM EDT Office Visit Gastro[place] [phone] Selene Browning, PhD [facility] [place] [address] 11/22/2023 4:40 PM EDT Office Visit Cardiology at [address] [phone] Porsha Mcdaniels MD [facility] [place] [address] 12/13/2023 10:00 AM EDT Clinical Support Gastro[place] [phone] [facility] [place] [address] documented as of this encounter Procedures Procedure Name Priority Date/Time Associated Diagnosis Comments FILM LIBRARY STORAGE ONLY DX CHEST Routine 05/02/2021 12:00 AM EST documented in this encounter Results * Film Library- Storage Only DX Chest (05/02/2021 12:00 AM EST) Narrative [facility] - 05/30/2021 2:33 PM EDT This exam is auto-finalizing. It's purpose is for storage only. Tim Rogers DNP IMG FILM LIBRARY OR DERABLES [place], [place] documented in this encounter Visit Diagnoses Not on filedocumented in this encounter Care Teams Marketing Data Specialist Relationship Specialty Start Date End Date Tim Rogers DNP PCP - General Family Medicine 08/28/19 06/08/21 documented as of this encounter
--- OUTSIDE RECORDS SUMMARY | 2023-10-05 17:10 | XMS_ITS | Encounter Summary ---
[place] [address] Care Team Providers Care Cable Splicer Helper Name Role Phone Tim Rogers DNP Primary Care Provider [phone] Encounter Details Date Type Department Care Team (Late st Contact Info) Description 05/27/2021 Ancillary Procedure Radiology [place] [phone] Tim Rogers DNP [address] [place] [address] Social History Tobacco Use Types [...] AM EDT Tech [place] [phone] Channing Escob[place] 10/08/2023 9:30 AM EDT Office [place] [address] MD [facility] [address] 10/21/2023 10:30 AM EDT Appointment Nuclear Medicine at [place] [phone] Mary Reyes [facility] [place] [address] 10/21/2023 11:30 AM EDT Appointment [place] [phone] [place] [address] 10/21/2023 12:30 PM EDT Appointment [place] [address]-1000 Mary Reyes [facility] [place] [address] 10/21/2023 1:30 PM EDT Appointment [place] [phone] Mary Reyes [facility] [place] [address] 10/21/2023 2:30 PM EDT Appointment [place] [address]-1000 Mary Reyes [facility] [place] [address] 10/26/2023 4:00 PM EDT Office Visit Cardiology at [address] [phone] Jaspreet Kinsey MD [facility] [place] [address] 10/28/2023 9:00 AM EDT Office [place] [address] 10/29/2023 10:00 AM EDT Clinical [place] [address] 10/29/2023 10:15 AM EDT Procedure [place] [address] 11/01/2023 5:00 PM EDT Office [place] [phone] Selene Browning, PhD [facility] [place] [address] 11/22/2023 4:40 PM EDT Office Visit Cardiology at [address] [phone] Porsha Mcdaniels MD [facility] [place] [address] 12/13/2023 10:00 AM EDT Clinical Support [place] [phone] Lucero Romero, [place] [facility] [place] [address] documented as of this encounter Procedures Procedure Name Priority Date/Time Associated Diagnosis Comments FILM LIBRARY STORAGE ONLY CT ABDOMEN AND PELVIS Routine 05/27/2021 12:00 AM EDT documented in this encounter Results * Film Library- Storage Only CT Abdomen & Pelvis (05/27/2021 12:00 AM EDT) Narrative [facility] - 05/30/2021 2:30 PM EDT This exam is auto-finalizing. It's purpose is for storage only. Tim Rogers DNP IMG FILM LIBRARY OR DERABLES [place], [place] documented in this encounter Visit Diagnoses Not on filedocumented in this encounter Care Teams Cable Splicer Helper Relationship Specialty Start Date End Date Tim Rogers DNP PCP - General Family Medicine 08/28/19 06/08/21 documented as of this encounter
--- OUTSIDE RECORDS SUMMARY | 2023-10-05 17:10 | XMS_ITS | Encounter Summary ---
[place] [address] Care Team Providers Care Mining Plant Operator Name Role Phone Tim Rogers DNP Primary Care Provider [phone] Reason for Visit * Reason Onset Date Comments Other 10/18/2020 Pt requesting ca ll back from MD Encounter Details Date Type Department Care Team (Late st Contact Info) Description 10/18/2020 Telephone [place] [phone] Olive Gonzales RN Other (Pt requesting call [...] Olive Gonzales RN Department of Pulmonary 5C, [facility] / Pager: [phone] documented in this encounter Plan of Treatment Upcoming Encounters Date Type Department Care Team (Late st Contact Info) Description 10/08/2023 8:30 AM EDT Tech Visit Vascular Lab at [place] [phone] Channing Escobedo [place] 10/08/2023 9:30 AM EDT Office Visit [place] [address] MD [facility] [place] [address] 10/21/2023 10:30 AM EDT Appointment Nuclear Medicine at [place] [phone] Mary Reyes [place] [address] 10/21/2023 11:30 AM EDT Appointment Nuclear Medicine at [place] [phone] [place] [address] 10/21/2023 12:30 PM EDT Appointment [place] [phone] Mary Reyes [place] [address] 10/21/2023 1:30 PM EDT Appointment [place] [phone] Mary Reyes [place] [address] 10/21/2023 2:30 PM EDT Appointment [place] [address] [place] [address] 10/26/2023 4:00 PM EDT Office Visit Cardiology at [address] [phone] Jaspreet Kinsey MD [facility] [place] [address] 10/28/2023 9:00 AM EDT Office [place] [address] 10/29/2023 10:00 AM EDT Clinical Support [place] [address] 10/29/2023 10:15 AM EDT Procedure [place] [address] 11/01/2023 5:00 PM EDT Office Visit G[place] [address] Selene Browning, [facility] [place] [address] 11/22/2023 4:40 PM EDT Office Visit Cardiology at [address] [phone] Porsha Mcdaniels MD [facility] [place] [address] 12/13/2023 10:00 AM EDT Clinical Support [place] [address] Lucero Romero, RD [facility] [place] [address] documented as of this encounter Visit Diagnoses Not on filedocumented in this encounter Care Teams Mining Plant Operator Relationship Specialty Start Date End Date Tim Rogers DNP PCP - General Family Medicine 08/28/19 06/08/21 documented as of this encounter
--- OUTSIDE RECORDS SUMMARY | 2023-10-05 17:10 | XMS_ITS | Encounter Summary ---
[place] [address] Care Team Providers Care Police District Switchboard Operator Name Role Phone Tim Rogers DNP Primary Care Provider [phone] Reason for Visit * Reason Onset Date Comments Appointment 09/12/2020 Follow up Encounter Details Date Type Department Care Team (Late st Contact Info) Description 09/12/2020 Telephone [place] [phone] Renetta Graham RN Appointment (Follow up) Social [...] AM EDT Tech [place] [phone] [place] 10/08/2023 9:30 AM EDT Office Visit [place] [phone] MD [facility] [place] [address] 10/21/2023 10:30 AM EDT Appointment [place] [phone] [place] [address] 10/21/2023 11:30 AM EDT Appointment [place] [phone] Mary Re[place] [address] 10/21/2023 12:30 PM EDT Appointment [place] [phone] Mary Reyes DOLL W[employer] MAKER [facility] [place] [address] 10/21/2023 1:30 PM EDT Appointment [place] [phone] Mary Reyes [place] [address] 10/21/2023 2:30 PM EDT Appointment [place] [phone] [place] [address] 10/26/2023 4:00 PM EDT Office Visit Cardiology at [address] [phone] Jaspreet Kinsey MD [facility] [place] [address] 10/28/2023 9:00 AM EDT Office [place] [address] 10/29/2023 10:00 AM EDT Clinical Support [place] [address] 10/29/2023 10:15 AM EDT Procedure [place] [address] 11/01/2023 5:00 PM EDT Office Visit [place] [phone] Selene Browning, PhD [facility] [place] [address] 11/22/2023 4:40 PM EDT Office Visit Cardiology at [address] [phone] Porsha Mcdaniels MD [facility] [place] [address] 12/13/2023 10:00 AM EDT Clinical Support [place] [address] [facility] [place] [address] documented as of this encounter Visit Diagnoses Not on filedocumented in this encounter Care Teams Police District Switchboard Operator Relationship Specialty Start Date End Date Tim Rogers DNP PCP - General Family Medicine 08/28/19 06/08/21 documented as of this encounter
--- OUTSIDE RECORDS SUMMARY | 2023-10-05 17:10 | XMS_ITS | Encounter Summary ---
Author Organization [place] [address] Care Team Providers Care Gas Station Clerk Name Role Phone Tim Rogers DNP Primary Care Provider Reason for Visit * Diagnostic Test (Routine) - Closed Specialty Diagnoses / Procedures Referred By Jayant harris Referred To Contact Cardiology Diagnoses Palpitations Procedures Ziopatch 48 Hrs-15 Days Beto Miller MD [facility] [place] [address] [facility] [place] [address] Referral ID Status Reason Start Date Expiration Date V isits Requested Visits Authorized [id number] Closed Specialty Service Requested 10/28/2020 03/07/2021 1 1 Encounter Details Date Type Department Care Team (Latest Contact Info) Description 10/28/2020 8:00 AM EDT - 10/28/2020 11:59 PM EDT Hospital Encounter [place] [address] Beto Miller MD [facility] [place] [address] Palpitations Discharge Disposition: Home Social [...] as needed. fluticasone propionate (FLONASE) 50 mcg/actuation [place], Suspension 1 spray by Each Nare route [...] AM EDT Tech [place] [address]-1000 [place] Escob[place] 10/08/2023 9:30 AM EDT Office [place] [phone] MD [facility] [place] [address] 10/21/2023 10:30 AM EDT Appointment [place] [phone] [place] [address] 10/21/2023 11:30 AM EDT Appointment [place] [address]-1000 Mary Reyes [facility] [place] [address] 10/21/2023 12:30 PM EDT Appointment [place] [phone] Mary Reyes [facility] [place] [address] 10/21/2023 1:30 PM EDT Appointment [place] [address]-1000 Mary Reyes APRN [facility] [place] [address] 10/21/2023 2:30 PM EDT Appointment [place] [address] Mary Reyes APRN [facility] [place] [place] [address] 10/26/2023 4:00 PM EDT Office Visit Cardiology at [address] [phone] Jaspreet Kinsey MD [facility] [place] [address] 10/28/2023 9:00 AM EDT Office Visit [place] [address] 10/29/2023 10:00 AM EDT Clinical Support [place] [address] 10/29/2023 10:15 AM EDT Procedure visit [place] [address] 11/01/2023 5:00 PM EDT Office [place] [phone] Selene Browning, PhD [facility] [place] [address] 11/22/2023 4:40 PM EDT Office Visit Cardiology at [address] [phone] Porsha Mcdaniels MD [facility] [place] [address] 12/13/2023 10:00 AM EDT Clinical Support [place] [address] Lucero Romero, [place] [facility] [place] [place] [address] documented as of this encounter Procedures Procedure [...] Palpitations documented in this encounter Care Teams Gas Station Clerk Relationship Specialty Start Date End Date Tim Rogers DNP PCP - General Family Medicine 08/28/19 06/08/21 documented as of this encounter
--- OUTSIDE RECORDS SUMMARY | 2023-10-05 17:10 | XMS_ITS | Encounter Summary ---
Author Organization [facility] [place] [address] Care Team Providers Care Meat Carver Name Role Phone Tim Rogers DNP Primary Care Provider [phone] Encounter Details Date Type Department Care Team (Late st Contact Info) Description 08/02/2020 Telephone [place] [phone] Olive Frazier Social History Tobacco Use Types [...] AM EDT Tech [place] [address]-1000 [place] Escob[place] 10/08/2023 9:30 AM EDT Office Visit [place] [phone] MD [facility] [place] [address] 10/21/2023 10:30 AM EDT Appointment [place] [address] Mary Reyes [place] [address] 10/21/2023 11:30 AM EDT Appointment [place] [address] Mary Reyes [facility] [address] 10/21/2023 12:30 PM EDT Appointment [place] [address] Mary Reyes [facility] [address] 10/21/2023 1:30 PM EDT Appointment [place] [address] [place] [address] 10/21/2023 2:30 PM EDT Appointment [place] [address] Mary Reyes [facility] [address] 10/26/2023 4:00 PM EDT Office Visit Cardiology at [address] [phone] Jaspreet Kinsey MD [facility] [address] 10/28/2023 9:00 AM EDT Office Visit [place] [address] 10/29/2023 10:00 AM EDT Clinical Support [place] [address] 10/29/2023 10:15 AM EDT Procedure visit [place] [address] 11/01/2023 5:00 PM EDT Office Visit [place] [address] Selene Browning, PhD [facility] [place] [address] 11/22/2023 4:40 PM EDT Office Visit Cardiology at [address] [phone] Porsha Mcdaniels MD [facility] [place] [address] 12/13/2023 10:00 AM EDT Clinical Support [place] [address] Lucero Romero, RD [facility] [place] [address] documented as of this encounter Visit Diagnoses Not on filedocumented in this encounter Care Teams Meat Carver Relationship Specialty Start Date End Date Tim Rogers DNP PCP - General Family Medicine 08/28/19 06/08/21 documented as of this encounter
--- OUTSIDE RECORDS SUMMARY | 2023-10-05 17:10 | XMS_ITS | Encounter Summary ---
[place] [address] Care Team Providers Care Spot Washer Name Role Phone Tim Rogers DNP Primary Care Provider Encounter Details Date Type Department Care Team (Late st Contact Info) Description 03/23/2021 Ancillary Procedure [place] [address]-1000 Tim Rogers DNP [address] [place] [address] Social History Tobacco Use Types [...] AM EDT Tech [place] [address]-1000 [place] Escob[place] 10/08/2023 9:30 AM EDT Office Visit [place] [address] MD [facility] [place] [address] 10/21/2023 10:30 AM EDT Appointment Nuclear Medicine at [place] [phone] Mary Reyes [facility] [place] [address] 10/21/2023 11:30 AM EDT Appointment [place] [phone] [place] [address] 10/21/2023 12:30 PM EDT Appointment Nuclear [place] [phone] Mary Reyes [facility] [place] [address] 10/21/2023 1:30 PM EDT Appointment Nuclear [place] [address]-1000 Mary Reyes [facility] [place] [address] 10/21/2023 2:30 PM EDT Appointment Nuclear [place] [address]-1000 Mary Reyes [facility] [place] [address] 10/26/2023 4:00 PM EDT Office Visit Cardiology at [address] [phone] Jaspreet Kinsey MD [facility] [place] [address] 10/28/2023 9:00 AM EDT Office [place] [address] 10/29/2023 10:00 AM EDT Clinical [place] [address] 10/29/2023 10:15 AM EDT Procedure [place] [address] 11/01/2023 5:00 PM EDT Office Visit [place] [phone] Selene Browning, PhD [facility] [place] [address] 11/22/2023 4:40 PM EDT Office Visit Cardiology at [address] [phone] Porsha Mcdaniels MD [facility] [place] [address] 12/13/2023 10:00 AM EDT Clinical Support [place] [phone] [facility] [place] [address] documented as of this encounter Procedures Procedure Name Priority Date/Time Associated Diagnosis Comments FILM LIBRARY STORAGE ONLY DX CHEST Routine 03/23/2021 12:00 AM EST documented in this encounter Results * Film Library- Storage Only DX Chest (03/23/2021 12:00 AM EST) Narrative [facility] - 04/03/2021 11:45 AM EST This exam is auto-finalizing. It's purpose is for storage only. Tim Rogers DNP IMG FILM LIBRARY OR DERABLES Performing Organization Address City/State/[facility] Co de Phone Number [place], [place] documented in this encounter Visit Diagnoses Not on filedocumented in this encounter Care Teams Spot Washer Relationship Specialty Start Date End Date Tim Rogers DNP PCP - General Family Medicine 08/28/19 06/08/21 documented as of this encounter
--- OUTSIDE RECORDS SUMMARY | 2023-10-05 17:10 | XMS_ITS | Encounter Summary ---
Author Organization [facility] [place] [address] Care Team Providers Care Resident Services Supervisor Name Role Phone Tim Rogers DNP Primary Care Provider +1 [phone] Encounter Details Date Type Department Care Team (Latest Contact Info) Description 08/01/2020 11:42 AM EDT - 08/01/2020 11:59 PM EDT Hospital En[place] [phone] Dyspnea, unspecified type Discharge Disposition: Home Social [...] as needed. fluticasone propionate (FLONASE) 50 mcg/actuation Dozier, Suspension 1 spray by Each Nare route [...] AM EDT Tech [place] [phone] Channing Esc[place] 10/08/2023 9:30 AM EDT Office [place] [phone] MD [facility] DR [place] [address] 10/21/2023 10:30 AM EDT Appointment Nuclear Medicine at [address] Mary Reyes [facility] [place] [address] 10/21/2023 11:30 AM EDT Appointment Nuclear Medicine at [address] Mary Reyes [facility] [place] [address] 10/21/2023 12:30 PM EDT Appointment [place] [phone] Mary Reyes [facility] [place] [address] 10/21/2023 1:30 PM EDT Appointment Nuclear Medicine at [place] [phone] Mary Reyes [facility] [place] [address] 10/21/2023 2:30 PM EDT Appointment [place] [address] Mary Reyes [facility] [place] [address] 10/26/2023 4:00 PM EDT Office Visit Cardiology at [address] [phone] Jaspreet Kinsey MD [facility] [place] [address] 10/28/2023 9:00 AM EDT Office [place] [address] 10/29/2023 10:00 AM EDT Clinical [place] [address] 10/29/2023 10:15 AM EDT Procedure [place] [address] 11/01/2023 5:00 PM EDT Office [place] [phone] Selene Browning, PhD [facility] [place] [address] 11/22/2023 4:40 PM EDT Office Visit Cardiology at [address] [phone] Porsha Mcdaniels MD [facility] [place] [address] 12/13/2023 10:00 AM EDT Clinical [place] [address]-[address] [facility] DR [place] [address] documented as of this encounter Procedures Procedure [...] / FVC LLN 69 % COMPAS PFT ZNG27-37 Actual Pre-BD 3.14 L/s COMPAS PFT IAX89-90 Pre-BD % of Predicted 116 % COMPAS PFT MPR34-75 Predicted 2.70 L/s COMPAS PFT TZW18-01 Pre-BD Z-Score 0.51 COMPAS PFT FVC Actual [...] PFT FEV1/FVC Post-BD Z-Score 1.94 COMPAS PFT OEA95-48 Actual Post-BD 4.26 L/s COMPAS PFT XDY73-21 Post-BD % of Predicted 158 % COMPAS PFT FYW72-82 Post-BD Z-Score 1.67 COMPAS PFT DLCO Hb [...] type documented in this encounter Care Teams Resident Services Supervisor Relationship Specialty Start Date End Date Tim Rogers DNP PCP - General Family Medicine 08/28/19 06/08/21 documented as of this encounter
--- OUTSIDE RECORDS SUMMARY | 2023-10-05 17:10 | XMS_ITS | Encounter Summary ---
[place] [address] Care Team Providers Care Financial Processing Clerk Name Role Phone Tim Rogers DNP Primary Care Provider [phone] Reason for Visit * Reason Onset Date Comments Nasal Congestion 09/02/2020 Cough 09/02/2020 Shortness of Breath 09/02/2020 Anorexia 09/02/2020 Lack of appetite Encounter Details Date Type Department Care Team (Late st Contact Info) Description 09/02/2020 Telephone [place] [phone] Renetta Graham RN Nasal Congestion; Cough; Shortness [...] radha annita. Return Contact Number: Work - [phone], ask for Mihaela Preferred Pharmacy: [facility] on file. documented in this encounter Plan of Treatment Upcoming Encounters Date Type Department Care Team (Late st Contact Info) Description 10/08/2023 8:30 AM EDT Tech [place] [phone] Channing Escob[place] 10/08/2023 9:30 AM EDT Office Visit Vascular [place] [phone] MD [facility] [place] [place] [address] 10/21/2023 10:30 AM EDT Appointment [place] [address]-1000 Mary Reyes APRN [facility] [place] [address] 10/21/2023 11:30 AM EDT Appointment [place] [address] Mary Reyes [place] [address] 10/21/2023 12:30 PM EDT Appointment [place] [address] Mary Reyes [place] [address] 10/21/2023 1:30 PM EDT Appointment [place] [address] [place] [address] 10/21/2023 2:30 PM EDT Appointment [place] [address] [place] [address] 10/26/2023 4:00 PM EDT Office Visit Cardiology at [address] [phone] Jaspreet Kinsey MD [facility] [place] [address] 10/28/2023 9:00 AM EDT Office [place] [address] 10/29/2023 10:00 AM EDT Clinical [place] [address] 10/29/2023 10:15 AM EDT Procedure [place] [address] 11/01/2023 5:00 PM EDT Office Visit Gastroenterology at [place] [phone] Selene Browning, PhD [facility] [place] [address] 11/22/2023 4:40 PM EDT Office Visit Cardiology at [place] [phone] Porsha Mcdaniels MD [facility] [place] [address] 12/13/2023 10:00 AM EDT Clinical Support [place] [phone] [facility] [place] [place] [address] documented as of this encounter Visit Diagnoses Not on filedocumented in this encounter Care Teams Financial Processing Clerk Relationship Specialty Start Date End Date Tim Rogers DNP PCP - General Family Medicine 08/28/19 06/08/21 documented as of this encounter
--- OUTSIDE RECORDS SUMMARY | 2023-10-05 17:10 | XMS_ITS | Encounter Summary ---
[place] [address] Care Team Providers Care Wholesale Agronomist Name Role Phone Tim Rogers DNP Primary Care Provider [phone] Encounter Details Date Type Department Care Team (Late st Contact Info) Description 05/30/2021 Telephone [place] [phone] Beryl Grider Social History Tobacco Use Types [...] Beryl Grider - 05/30/2021 11:10 AM EDTSummary: [facility] Per Dr. Miller via [place], needs images sent to our PACS system for mutual pt. Called PCP's (Polo Pearce) office at [facility] & Nayeli Martin in Radiology to Assist in sending images of chest x- ray from May 03 & CT scan of abdomen ( maybe chest) from May 27 to our PACS system with Pulm # [phone] opt 1 documented in this encounter Plan of Treatment Upcoming Encounters Date Type Department Care Team (Late st Contact Info) Description 10/08/2023 8:30 AM EDT Tech Visit Vascular Lab at [place] [phone] Channing Escobedo [place] 10/08/2023 9:30 AM EDT Office [place] [address] MD [facility] [place] [address] 10/21/2023 10:30 AM EDT Appointment Nuclear Medicine at [place] [phone] [place] [address] 10/21/2023 11:30 AM EDT Appointment [place] [phone] [place] [address] 10/21/2023 12:30 PM EDT Appointment [place] [address] [place] [address] 10/21/2023 1:30 PM EDT Appointment [place] [address] Mary Reyes [facility] [place] [address] 10/21/2023 2:30 PM EDT Appointment Nuclear Medicine at [place] [phone] Mary Reyes APRN [facility] [employer] [place] [address] 10/26/2023 4:00 PM EDT Office Visit Cardiology at [address] [phone] Jaspreet Kinsey MD [facility] [place] [address] 10/28/2023 9:00 AM EDT Office Visit [place] [address] 10/29/2023 10:00 AM EDT Clinical Support [place] [address] 10/29/2023 10:15 AM EDT Procedure visit [place]astro[place] [address] 11/01/2023 5:00 PM EDT Office Visit Gastroenterology at [place] [phone] Selene Browning, PhD [facility] [place] [address] 11/22/2023 4:40 PM EDT Office Visit Cardiology at [address] [phone] Porsha Mcdaniels MD [facility] [place] [address] 12/13/2023 10:00 AM EDT Clinical [place] [phone] Lucero Romero, RD [facility] [place] [place] [address] documented as of this encounter Visit Diagnoses Not on filedocumented in this encounter Care Teams Wholesale Agronomist Relationship Specialty Start Date End Date Tim Rogers DNP PCP - General Family Medicine 08/28/19 06/08/21 documented as of this encounter
--- OUTSIDE RECORDS SUMMARY | 2023-10-05 17:11 | XMS_ITS | Encounter Summary ---
Author Organization [place] [address] Care Team Providers Care Tape Weaver Name Role Phone Tim Rogers DNP Primary Care Provider [phone] Reason for Visit * - Closed Specialty Diagnoses / Procedures Referred By Jayant harris Referred To Contact Procedures Film Library- Storage Only CT Chest Tim Rogers DNP [address] [place] [address] Referral ID Status Reason Start Date Expiration Date Visits Re quested Visits Authorized [id number] Closed 08/02/2020 08/02/2021 1 1 Encounter Details Date Type Department Care Team (Late Contact Info) Description 04/26/2020 Ancillary Procedure [place] [address] Tim Rogers DNP [address] [place], [place] [address] Social History Tobacco Use Types Packs/Day Years [...] Tech Visit Vascular Lab at [place] [phone] Channing [place] 10/08/2023 9:30 AM EDT Office [place] [address] MD [facility] [place] [address] 10/21/2023 10:30 AM EDT Appointment Nuclear Medicine at [place] [phone] [place] [address] 10/21/2023 11:30 AM EDT Appointment [place] [address]-1000 [place] [address] 10/21/2023 12:30 PM EDT Appointment [place] [address]-1000 Mary Reyes [facility] [place] [address] 10/21/2023 1:30 PM EDT Appointment [place] [address]-989456-1000 Mary Reyes [facility] [place] [address] 10/21/2023 2:30 PM EDT Appointment Nuclear [place] [address]-1000 Mary Reyes APRN [facility] DR [facility] [place] [address] 10/26/2023 4:00 PM EDT Office Visit Cardiology at [address] [address] Jaspreet Kinsey MD [facility] [address] 10/28/2023 9:00 AM EDT Office [place] [address] 10/29/2023 10:00 AM EDT Clinical [place] [address] 10/29/2023 10:15 AM EDT Procedure [place] [address] 11/01/2023 5:00 PM EDT Office Visit Gastroenterology at [place] [phone] Selene Browning, PhD [facility] [place] [address] 11/22/2023 4:40 PM EDT Office Visit Cardiology at [place] [phone] Porsha Mcdaniels MD [facility] [address] 12/13/2023 10:00 AM EDT Clinical Support Gastroenterology at [place] [phone] [facility] [place] [place] [address] documented as of this encounter Procedures Procedure [...] FILM LIBRARY OR DERABLES Performing Organization Address City/State/[facility] Co de Phone Number [place], [place] documented in this encounter Visit Diagnoses Not on filedocumented in this encounter Care Teams Tape Weaver Relationship Specialty Start Date End Date Tim Rogers DNP PCP - General Family Medicine 08/28/19 06/08/21 documented as of this encounter
--- OUTSIDE RECORDS SUMMARY | 2023-10-05 17:11 | XMS_ITS | Encounter Summary ---
Author Organization [facility] [place] [address] Care Team Providers Care Telephone Sales Representative Name Role Phone Tim Rogers DNP Primary Care Provider [phone] Encounter Details Date Type Department Care Team (Late st Contact Info) Description 04/26/2020 [place] [phone] Bull Fitzgerald MD [facility] [place] [address] Dyspnea, unspecified type (Primary Dx) Social History [...] AM EDT Tech [place] [address]-1000 Channing Escob[place] 10/08/2023 9:30 AM EDT Office [place] [address] MD [facility] [place] [address] 10/21/2023 10:30 AM EDT Appointment Nuclear Medicine at [place] [phone] Mary Reyes [place] [address] 10/21/2023 11:30 AM EDT Appointment Nuclear Medicine at [place] [phone] Mary Reyes [place] [address] 10/21/2023 12:30 PM EDT Appointment [place] [address] Mary Reyes [place] [address] 10/21/2023 1:30 PM EDT Appointment [place] [address]-1000 Mary Reyes [place] [address] 10/21/2023 2:30 PM EDT Appointment [place] [address]-1000 Mary Reyes [place] [address] 10/26/2023 4:00 PM EDT Office Visit Cardiology at [address] [phone] Jaspreet Kinsey MD [facility] [place] [address] 10/28/2023 9:00 AM EDT Office [place] [address] 10/29/2023 10:00 AM EDT Clinical [place] [address] 10/29/2023 10:15 AM EDT Procedure [place] [address] 11/01/2023 5:00 PM EDT Office [place] [address]-1000 Selene Browning, PhD [facility] [place] [address] 11/22/2023 4:40 PM EDT Office Visit Cardiology at [address] [phone] Porsha Mcdaniels MD [facility] [place] [address] 12/13/2023 10:00 AM EDT Clinical [place] [phone] [facility] [place] [address] documented as of this encounter Results * [...] / FVC LLN 69 % COMPAS PFT GRJ66-12 Actual Pre-BD 3.14 L/s COMPAS PFT LMS11-35 Pre-BD % of Predicted 116 % COMPAS PFT QGF93-27 Predicted 2.70 L/s COMPAS PFT YGM85-08 Pre-BD Z-Score 0.51 COMPAS PFT FVC Actual [...] PFT FEV1/FVC Post-BD Z-Score 1.94 COMPAS PFT BXM13-65 Actual Post-BD 4.26 L/s COMPAS PFT TPX54-71 Post-BD % of Predicted 158 % COMPAS PFT ATB85-38 Post-BD Z-Score 1.67 COMPAS PFT DLCO Hb [...] type documented in this encounter Care Teams Telephone Sales Representative Relationship Specialty Start Date End Date Tim Rogers DNP PCP - General Family Medicine 08/28/19 06/08/21 documented as of this encounter
--- OUTSIDE RECORDS SUMMARY | 2023-10-05 17:11 | XMS_ITS | Encounter Summary ---
Author Organization [facility] [place] [address] Care Team Providers Care Chief Steward/Stewardess Name Role Phone Tim Rogers DNP Primary Care Provider [phone] Encounter Details Date Type Department Care Team (Late st Contact Info) Description 08/28/2019 Telephone [place] [address] Kia Angelo MD [facility] DR CRITICAL [place] [address] Social History Tobacco Use Types Packs/Day Years [...] Dr. Pooja Iyer, Dr. Weathers Patient Location: [facility] ED Reason for call: transfer request for [...] can keep and manage patient in the [facility] ED overnight pending bed availability (they do [...] AM EDT Tech [place] [address] Channing Escobedo [place] 10/08/2023 9:30 AM EDT Office Visit Vascular Surgery at [place] [phone] MD [facility] [place] [address] 10/21/2023 10:30 AM EDT Appointment Nuclear Medicine at [place] [phone] [place] [address] 10/21/2023 11:30 AM EDT Appointment Nuclear Medicine at [place] [phone] [place] [address] 10/21/2023 12:30 PM EDT Appointment [place] [phone] [place] [address] 10/21/2023 1:30 PM EDT Appointment [place] [address] Mary Reyes [facility] [place] [address] 10/21/2023 2:30 PM EDT Appointment [place] [address]-696[address]-1000 Mary Reyes APRN [facility] [place] [address] 10/26/2023 4:00 PM EDT Office Visit Cardiology at [address] [phone] Jaspreet Kinsey MD [facility] [address] 10/28/2023 9:00 AM EDT Office Visit [place] [address] 10/29/2023 10:00 AM EDT Clinical Support [place] [address] 10/29/2023 10:15 AM EDT Procedure visit [place] [address] 11/01/2023 5:00 PM EDT Office Visit [place] [phone] Selene Browning, PhD [facility] [place] [address] 11/22/2023 4:40 PM EDT Office Visit Cardiology at [address] [phone] Porsha Mcdaniels MD [facility] [place] [address] 12/13/2023 10:00 AM EDT Clinical Support [place] [phone] [facility] [place] [address] documented as of this encounter Visit Diagnoses Not on filedocumented in this encounter Care Teams Chief Steward/Stewardess Relationship Specialty Start Date End Date Tim Rogers DNP PCP - General Family Medicine 08/28/19 06/08/21 documented as of this encounter
--- OUTSIDE RECORDS SUMMARY | 2023-10-05 17:11 | XMS_ITS | Encounter Summary ---
Author Organization [facility] [place] [address] Care Team Providers Care Die Casting Machine Operator Name Role Phone Tim Rogers DNP Primary Care Provider Encounter Details Date Type Department Care Team (Late st Contact Info) Description 08/28/2019 12:05 AM EDT Ancillary Procedure [place] [phone] Veronica Bello, DIGITAL RECRUITER [address] [place], [place] [address] Social History Tobacco Use Types Packs/Day Years [...] AM EDT Tech Visit [place] [address]-1000 Channing Escobedo [place] 10/08/2023 9:30 AM EDT Office Visit [place] [phone] MD [facility] DR VASCULAR SURGERY [place], [place] [address]66[address] 10/21/2023 10:30 AM EDT Appointment Nuclear Medicine at [place] [phone] [place] [address] 10/21/2023 11:30 AM EDT Appointment Nuclear Medicine at [place] [phone] Mary Reyes [facility] [place] [address] 10/21/2023 12:30 PM EDT Appointment [place] [address] Mary Reyes [facility] [place] [address] 10/21/2023 1:30 PM EDT Appointment [place] [address] Mary Reyes [facility] [place] [address] 10/21/2023 2:30 PM EDT Appointment [place] [address] Mary Reyes [facility] [place] [address] 10/26/2023 4:00 PM EDT Office Visit Cardiology at [address] [phone] Jaspreet Kinsey MD [facility] [place] [address] 10/28/2023 9:00 AM EDT Office Visit [place] [address] 10/29/2023 10:00 AM EDT Clinical [place] [address] 10/29/2023 10:15 AM EDT Procedure [place] [address] 11/01/2023 5:00 PM EDT Office Visit [place] [phone] Selene Browning, PhD [facility] [place] [address] 11/22/2023 4:40 PM EDT Office Visit Cardiology at [address] [address] Porsha Mcdaniels MD [facility] [place] [address] 12/13/2023 10:00 AM EDT Clinical Support [place] [address]-[address] [facility] [place] [address] documented as of this encounter Procedures Procedure Name Priority Date/Time Associated Diagnosis Comments FILM LIBRARY STORAGE ONLY CT CHEST Routine 08/28/2019 12:05 AM EDT documented in this encounter Results * Film Library- Storage Only CT Chest (08/28/2019 12:05 AM EDT) Narrative [facility] - 08/29/2019 1:46 PM EDT This exam is auto-finalizing. It's purpose is for storage only. Veronica K Garrettdara DIGITAL RECRUITER IMG FILM LIBRARY ORD ERABLES [place], [place] documented in this encounter Visit Diagnoses Not on filedocumented in this encounter Care Teams Die Casting Machine Operator Relationship Specialty Start Date End Date Tim Rogers DNP PCP - General Family Medicine 08/28/19 06/08/21 documented as of this encounter
--- OUTSIDE RECORDS SUMMARY | 2023-10-05 17:11 | XMS_ITS | Encounter Summary ---
Author Organization [facility] Address [facility] [place] [address] Care Team Providers Care Zinc Miner Name Role Phone Faheem Romero MD Primary Care Provider [phone] Reason for Visit * Reason Comments Allergic Rhinitis Encounter Details Date Type Department Care Team (Late st Contact Info) Description 06/26/2010 9:15 AM EDT [place] [address] Lashonda York MD [facility] DR ALLERGY [place] [address] Asthma (Primary Dx); Rhinitis; Rhinitis, nonallergic, chronic [...] pollen: Axel Tree pollen: Birch, Shay, Maple, Taylor, Beech, [place] pollen: Anderson's Quarters, Short Ragweed, Pigweed, Molds: [...] AM EDT Tech Visit Vascular Lab at [place] [phone] [place] 10/08/2023 9:30 AM EDT Office Visit [place] [address]-[address] MD [facility] [place] [address] 10/21/2023 10:30 AM EDT Appointment Nuclear Medicine at [place] [phone] Mary Reyes APRN [facility] [place] [address] 10/21/2023 11:30 AM EDT Appointment [place] [phone] [place] [address] 10/21/2023 12:30 PM EDT Appointment [place] [address]-1000 [place] [address] 10/21/2023 1:30 PM EDT Appointment [place] [address]-1000 [place] [address] 10/21/2023 2:30 PM EDT Appointment [place] [address] [place] [address] 10/26/2023 4:00 PM EDT Office Visit Cardiology at [address] [phone] Jaspreet Kinsey MD [facility] [place] [address] 10/28/2023 9:00 AM EDT Office Visit [place] [address] 10/29/2023 10:00 AM EDT Clinical Support [place] [address] 10/29/2023 10:15 AM EDT Procedure visit [place] [address] 11/01/2023 5:00 PM EDT Office Visit Gastroenterology at [place] [phone] Selene Browning, PhD [facility] [place] [address] 11/22/2023 4:40 PM EDT [place] [address] Porsha Mcdaniels MD [facility] [place] [address] 12/13/2023 10:00 AM EDT Clinical Support [place] [address] Lucero Romero, ALVA [facility] [place] [address] Scheduled Orders Name Type Priority Associated Diagnoses Orde r Schedule Spirometry without bronchodilator PFT Routine Asthma Ordered: 06/26/2010 documented as of this encounter Visit Diagnoses Diagnosis Asthma- Primary Unspecified asthma Rhinitis Chronic rhinitis Rhinitis, nonallergic, chronic Chronic rhinitis documented in this encounter Care Teams Zinc Miner Relationship Specialty Start Date End Date Faheem Romero MD [facility] [place] [address] PCP - General 06/11/10 08/27/19 documented as of this encounter
--- OUTSIDE RECORDS SUMMARY | 2023-10-05 17:11 | XMS_ITS | Encounter Summary ---
Author Organization [facility] [place] [address] Care Team Providers Care Ironworker Foreman Name Role Phone Tim Rogers DNP Primary Care Provider [phone] Encounter Details Date Type Department Care Team (Late st Contact Info) Description 07/12/2020 [place]phone [place] [phone] Jo Ann Colon Social History Tobacco Use [...] AM EDT Tech [place] [address]-1000 [place] 10/08/2023 9:30 AM EDT Office [place] [phone] MD [facility] [place] [address] 10/21/2023 10:30 AM EDT Appointment [place] [address] Mary Reyes [facility] [place] [address] 10/21/2023 11:30 AM EDT Appoint[place] [address] Mary Reyes [facility] [place] [address] 10/21/2023 12:30 PM EDT Appointment [place] [address] Mary Reyes [facility] [place] [address] 10/21/2023 1:30 PM EDT Appointment [place] [address] [place] [address] 10/21/2023 2:30 PM EDT Appointment [place] [address] Mary Reyes [facility] [place] [address] 10/26/2023 4:00 PM EDT Office Visit Cardiology at [address] [phone] Jaspreet Kinsey MD [facility] [address] 10/28/2023 9:00 AM EDT Office Visit [place] [address] 10/29/2023 10:00 AM EDT Clinical Support [place] [address] 10/29/2023 10:15 AM EDT Procedure visit [place]astro[place] [address] 11/01/2023 5:00 PM EDT Office [place] [address] Selene Browning, PhD [facility] DR [place] [address] 11/22/2023 4:40 PM EDT Office Visit Cardiology at [address] [address] Porsha Mcdaniels MD [facility] [address] 12/13/2023 10:00 AM EDT Clinical [place] [address] Lucero Romero, ALVA [facility] [place] [address] documented as of this encounter Visit Diagnoses Not on filedocumented in this encounter Care Teams Ironworker Foreman Relationship Specialty Start Date End Date Tim Rogers DNP PCP - General Family Medicine 08/28/19 06/08/21 documented as of this encounter
--- OUTSIDE RECORDS SUMMARY | 2023-10-05 17:11 | XMS_ITS | Encounter Summary ---
Author Organization [facility] [place] [address] Care Team Providers Care Mailing Jogger Name Role Phone Dustin Nino MD Primary Care Provider [phone] Encounter Details Date Type Department Care Team (Late st Contact Info) Description 06/17/2010 [place] [phone] Lashonda York MD [facility] DR [place] [address] Social History Tobacco Use Types Packs/Day Years [...] AM EDT Tech [place] [address]-1000 [place] 10/08/2023 9:30 AM EDT Office Visit [place] [address]-[address] MD [facility] [place] [address] 10/21/2023 10:30 AM EDT Appointment Nuclear Medicine at [place] [phone] Mary Reyes [place] [address] 10/21/2023 11:30 AM EDT Appointment Nuclear Medicine at [place] [phone] Mary Reyes [place] [address] 10/21/2023 12:30 PM EDT Appointment [place] [address]-1000 Mary Reyes [place] [address] 10/21/2023 1:30 PM EDT Appointment Nuclear Medicine at [place] [phone] Mary Reyes [place] [address] 10/21/2023 2:30 PM EDT Appointment [place] [address] Mary Reyes [place] [address] 10/26/2023 4:00 PM EDT Office Visit Cardiology at [address] [address] Jaspreet Kinsey MD [facility] [place] [address] 10/28/2023 9:00 AM EDT Office [place] [address] 10/29/2023 10:00 AM EDT Clinical Support [place] [address] 10/29/2023 10:15 AM EDT Procedure [place] [address] 11/01/2023 5:00 PM EDT Office Visit Gastroenterology at [place] [phone] Selene Browning, PhD [facility] [place] [address] 11/22/2023 4:40 PM EDT Office Visit Cardiology at [place] [phone] Porsha Mcdaniels MD [facility] [place] [address] 12/13/2023 10:00 AM EDT Clinical Support [place] [address] Lucero Romero, AL[facility] [place] [address] documented as of this encounter Visit Diagnoses Not on filedocumented in this encounter Care Teams Mailing Jogger Relationship Specialty Start Date End Date Dustin Nino MD [facility] [address] [place] [address] PCP - General 06/11/10 08/27/19 documented as of this encounter
--- OUTSIDE RECORDS SUMMARY | 2023-10-05 17:11 | XMS_ITS | Encounter Summary ---
Author Organization [facility] [place] [address] Care Team Providers Care Sagger Preparer Name Role Phone Tim Rogers DNP Primary Care Provider Encounter Details Date Type Department Care Team (Late st Contact Info) Description 08/28/2019 Ancillary Procedure [place] [phone] Veronica Bello, BODILY INJURY ADJUSTER [address] [place], [place] [phone] Social History Tobacco Use Types Packs/Day Years [...] AM EDT Tech [place] [address]-1000 [place] 10/08/2023 9:30 AM EDT Office [place] [address]-[address] MD [facility] DR VASCULAR SURGERY [place], [place] 9766556 10/21/2023 10:30 AM EDT Appointment Nuclear Medicine at [place] [phone] Mary Reyes [facility] [place] [address] 10/21/2023 11:30 AM EDT Appointment Nuclear Medicine at [address] Mary Reyes [facility] [place] [address] 10/21/2023 12:30 PM EDT Appointment [place] [address]-1000 Mary Reyes [facility] [place] [address] 10/21/2023 1:30 PM EDT Appointment [place] [address] Mary Reyes [facility] [place] [address] 10/21/2023 2:30 PM EDT Appointment [place] [address] Mary Reyes [facility] [place] [address] 10/26/2023 4:00 PM EDT Office Visit Cardiology at [address] [phone] Jaspreet Kinsey MD [facility] [place] [address] 10/28/2023 9:00 AM EDT Office [place] [address] 10/29/2023 10:00 AM EDT Clinical [place] [address] 10/29/2023 10:15 AM EDT Procedure [place] [address] 11/01/2023 5:00 PM EDT Office Visit [place] [address]-1000 Selene Browning, PhD [facility] [place] [address] 11/22/2023 4:40 PM EDT Office Visit Cardiology at [address] [address] Porsha Mcdaniels MD [facility] [place] [address] 12/13/2023 10:00 AM EDT Clinical Support [place] [address] [facility] [place] [place] [address] documented as of this encounter Procedures Procedure Name Priority Date/Time Associated Diagnosis Comments FILM LIBRARY STORAGE ONLY DX CHEST Routine 08/28/2019 12:00 AM EDT documented in this encounter Results * Film Library- Storage Only DX Chest (08/28/2019 12:00 AM EDT) Narrative [facility] - 08/29/2019 1:45 PM EDT This exam is auto-finalizing. It's purpose is for storage only. Veronica Willis Ace BODILY INJURY ADJUSTER IMG FILM LIBRARY ORD ERABLES [place], [place] documented in this encounter Visit Diagnoses Not on filedocumented in this encounter Care Teams Sagger Preparer Relationship Specialty Start Date End Date Tim Rogers DNP PCP - General Family Medicine 08/28/19 06/08/21 documented as of this encounter
--- OUTSIDE RECORDS SUMMARY | 2023-10-05 17:11 | XMS_ITS | Encounter Summary ---
Author Organization [facility] [place] [address] Care Team Providers Care Wound/Ostomy Nurse Name Role Phone Dustin Nino MD Primary Care Provider [phone] Encounter Details Date Type Department Care Team (Late st Contact Info) Description 06/19/2010 [place] [address]-1000 Lashonda York MD [facility] [place] [address] Social History Tobacco Use Types Packs/Day Years [...] AM EDT Tech Visit [place] [address]-1000 [place] 10/08/2023 9:30 AM EDT Office [place] [address]-[address] MD [facility] [place] [address] 10/21/2023 10:30 AM EDT Appointment Nuclear Medicine at [place] [phone] Mary Reyes [facility] [place] [address] 10/21/2023 11:30 AM EDT Appointment Nuclear Medicine at [place] [phone] Mary Reyes [facility] [place] [address] 10/21/2023 12:30 PM EDT Appointment Nuclear [place] [address]-1000 Mary Reyes [facility] [place] [address] 10/21/2023 1:30 PM EDT Appointment Nuclear Medicine at [place] [phone] Mary Reyes [facility] [place] [address] 10/21/2023 2:30 PM EDT Appointment Nuclear [place] [address] Mary Reyes [facility] [place] [address] 10/26/2023 4:00 PM EDT Office Visit Cardiology at [address] [address] Jaspreet Kinsey MD [facility] [place] [address] 10/28/2023 9:00 AM EDT Office [place] [address] 10/29/2023 10:00 AM EDT Clinical [place] [address] 10/29/2023 10:15 AM EDT Procedure [place] [address] 11/01/2023 5:00 PM EDT Office Visit Gastroenterology at [place] [phone] Selene Browning, PhD [facility] [place] [address] 11/22/2023 4:40 PM EDT Office Visit Cardiology at [place] [phone] Porsha Mcdaniels MD [facility] [place] [address] 12/13/2023 10:00 AM EDT Clinical Support [place] [address] Lucero Romero, ALVA [facility] [place] [address] documented as of this encounter Visit Diagnoses Not on filedocumented in this encounter Care Teams Wound/Ostomy Nurse Relationship Specialty Start Date End Date Dustin Nino MD [facility] [address] [place] [address] PCP - General 06/11/10 08/27/19 documented as of this encounter
--- OUTSIDE RECORDS SUMMARY | 2023-10-05 17:11 | XMS_ITS | Encounter Summary ---
Author Organization [facility] [place] [address] Care Team Providers Care Lead Applier Name Role Phone Dustin Nino MD Primary Care Provider [phone] Encounter Details Date Type Department Care Team (Late st Contact Info) Description 06/20/2010 [place] [phone] Lashonda York MD [facility] DR ALLERGY [place] [address] Social History Tobacco Use Types Packs/Day Years [...] Tech [place] [address]-1000 [place] 10/08/2023 9:30 AM EDT Office [place] [address]-[address] MD [facility] [place] [address] 10/21/2023 10:30 AM EDT Appointment Nuclear Medicine at [place] [phone] Mary Reyes [facility] [place] [address] 10/21/2023 11:30 AM EDT Appointment Nuclear Medicine at [place] [phone] Mary Reyes [facility] [place] [address] 10/21/2023 12:30 PM EDT Appointment [place] [address]-1000 Mary Reyes [facility] [place] [address] 10/21/2023 1:30 PM EDT Appointment Nuclear Medicine at [place] [phone] Mary Reyes [facility] [place] [address] 10/21/2023 2:30 PM EDT Appointment [place] [address] Mary Reyes [facility] [place] [address] 10/26/2023 4:00 PM EDT Office Visit Cardiology at [address] [address] Jaspreet Kinsey MD [facility] [place] [address] 10/28/2023 9:00 AM EDT Office [place] [address] 10/29/2023 10:00 AM EDT Clinical [place] [address] 10/29/2023 10:15 AM EDT Procedure [place] [address] 11/01/2023 5:00 PM EDT Office Visit Gastroenterology at [place] [phone] Selene Browning, PhD [facility] [place] [address] 11/22/2023 4:40 PM EDT Office Visit Cardiology at [place] [phone] Porsha Mcdaniels MD [facility] [place] [address] 12/13/2023 10:00 AM EDT Clinical Support [place] [address] Lucero Romero, [facility] [place] [address] documented as of this encounter Visit Diagnoses Not on filedocumented in this encounter Care Teams Lead Applier Relationship Specialty Start Date End Date Dustin Nino MD [facility] [address] [place] [address] PCP - General 06/11/10 08/27/19 documented as of this encounter
--- OUTSIDE RECORDS SUMMARY | 2023-10-05 17:11 | XMS_ITS | Encounter Summary ---
Author Organization [facility] [place] [place] [address] Care Team Providers Care Sledger Name Role Phone Tim Rogers DNP Primary Care Provider [phone] Reason for Visit * Auth/Cert Specialty Diagnoses / Procedures Referred By Jayant hraris Referred To Contact Diagnoses NSTEMI (non-ST elevated myocardial infarction) NSTEMI Procedures EMERGNECY IPI Referral ID Status Reason Start Date Expiration Date Visits Re quested Visits Authorized [id number] 1 1 Encounter Details Date Type Department Care Team (Latest Contact Info) Description 08/29/2019 2:38 PM EDT - 08/31/2019 6:24 PM EDT Hospital Encounter Intermediate [place] [id number] Manish Benitez MD [facility] [place] [address] Non-ST elevation myocardial infarction (NSTEMI); SOB (shortness [...] this encounter Discharge Summaries * Natalia Urbina, EXPLOSIVE OPERATOR - 08/30/2019 5:18 PM EDT Images from the original note were not included. Discharge Summary Patient Name: Loida Roque Patient Age: 49 y.o. Language: Nicaraguan Race: White Ethnicity: Not nor Admit date: [...] pain overnight ~3 weeksago concerning for missed FL. ??In the ED, her EKG was abnormal [...] follow-up visit please call one of the family advocate on Wednesday-Wednesday between the hours of 8A- 5PM. Cardiology Clinic number @ [phone] If off hours contact the cardiac fellow on- call. Hospital Belly Dancer can help you. Hospital phone number [phone] Return to work: In 1 week Drivin hours post catheterization Follow up Appointments: Doctor Where Phone # Date Time Bouchra Frias APRN [address] / [facility] [id number] 09/13/19 8:30 Discharge References/Attachments None Discussed with MD Natalia Lira APRN Pager [phone] 08/31/2019 documented in this encounter Discharge Instructions * Discharge Instructions* Natalia Urbina APRN - 08/31/2019 3:54 PM EDT Call your doctor if: Chest pain, dyspnea, pain or swelling in legs occurs. If you have non-emergent questions, prior to your follow-up visit please call one of the family advocate on Wednesday-Wednesday between the hours of 8A- 5PM. Cardiology Clinic number @ [phone] If off hours contact the cardiac fellow on- call. Hospital Belly Dancer can help you. Hospital phone number [phone] Return to work: In 1 week Drivin hours post catheterization Follow up Appointments: Doctor Where Phone # Date Time Bouchra Frias APRN [address] / [facility] [id number] 09/13/19 8:30 * Attachments The following attachments cannot be sent through Care Everywhere. * Cardiac Catheterization: Left (Nicaraguan) documented in this encounter Medications at Time of Discharge Medication Sig Dispensed Refills Start Date End Date fluticasone propionate (FLONASE) 50 mcg/actuation [place], Suspension 1 spray by Each Nare route [...] Spirometry Patient Loida Roque 49 y.o. 1970 [id number] Spirometry Spirometry performed successfully. Waiting for read [...] Pt wheeled out of the unit with UNDER SHERIFF. * Leonardo Jolly - 08/31/2019 12:25 PM EDT Nutrition Services Note - Low Nutrition Acuity Loida Roque is a 49 y.o. female Reason for intervention: education [facility] [place] Nutrition Plan: Patient states that she follows a low sodium restriction a home. Educational Material Guidelines for a Heart Healthy Lifestyle provided. Continue current diet. Educational Material provided. Monitor weight. Encourage good oral intake. Support and encouragement provided. Nutrition will continue to monitor and follow up with patient as needed. Active Orders Diet Daily Healthy Menu Choices/Cardiac diet ([facility]-Diet) Frequency: Effective Now [...] in the interim. Leonardo Marina Jolly Pager: [phone] * Manish Benitez MD - 08/31/2019 9:33 AM EDT Images from the original note were not included. Inpatient Cardiology Progress Note Patient Name: Loida Roque Service: FLOOR CARE SPECIALIST / PA Responsible Attending: Manish Benitez MD [...] See remainder of report for additional findings. [facility] 08/29 Preliminary findings: Right dominant Normal [...] overnight ~3 weeks ago concerning for missed FL. ??In the ED, her EKG was abnormal with diffuse STTW abnormalities but unchanged from prior EKG in 200 7.?Troponin??I??positive at 0.25 (ULN 0.06). ??Vitals stable and patient asymptomatic at rest. ??DDimer positive at 1037 thus??CT-PE protocol??completed. ??No PE or acute aortic pathology. ??She is transferred for further work up of NSTEMI. ??EF 62% and no wall motions seen on echo. [facility] with normal cors and LVEDP 15. [...] Echo with EF 62% and no WMA [facility] with normal cors A1C 5.4% Bedside PFTs today ?? FULL CODE Discussed with Manish Benitez MD Natalia Urbina, ROM Pager [phone] 08/31/2019 Cardiology Attending Note I interviewed and examined the patient during comprehensive bedside rounds. I concur with the summary of interval events, active hospital-focused problem list and plan of care as described in the note below. I personally reviewed the medications, laboratory results, treatment decisions and updated the patient. Manish Benitez MD, FACP, FAC Section of Cardiovascular Medicine [facility] Factory Expertrecord changer [facility] This patient meets or has met [...] Progress Note Patient Name: Loida Roque Service: FLOOR CARE SPECIALIST / PA Responsible Attending: Manish Benitez MD [...] overnight ~3 weeks ago concerning for missed FL. In the ED, her EKG was abnormal [...] IVP ; net negative 450 ml; await [facility] Aspirin 324/81mg Plavix 300/75 mg Heparin [...] MD, FACP, FAC Section of Cardiovascular Medicine [facility] Factory Expertrecord changer [facility] This patient meets or has met medical criteria to require an inpatient level of care, i.e. a minimum of two midnights in the hospital with multiple complex problems. 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 fluticasone propionate (FLONASE) 50 mcg/actuation [place], Suspension 1 spray by Each Nare route [...] overnight ~3 weeks ago concerning for missed FL. In the ED, her EKG was abnormal with diffuse STTW abnormalities but unchanged from prior EKG in 2006. Troponin I positive at 0.25 (ULN 0.06). Vitals stable and patient asymptomatic at rest. DDimer positive [id number] thus CT-PE protocol completed. No PE or acute aortic pathology. She is transferred for furtherwork up of NSTEMI. Plan Echo and coronary angiography. TREATMENT PLAN: #NSTEMI Admit to cardiology Trend troponin - 1st negative at [facility] ProBNP 1242; Admit weight 207 lbs; Lasix [...] MD, FACP, FACC Section of Cardiovascular Medicine [facility] Factory Expertrecord changer [facility] This patient meets or has met [...] Primary care provider on file: Tim Rogers, EXPLOSIVE OPERATOR [phone] Advance Directive on file and Code Status: Full Code Patient???s Functional Status: Independent w/o device Living Situation: lives with Boby Roque (Spouse) [phone] (M) at [address] [place] [address] Supports: Boby, Mother son and daughter Assessment: Patient with no apparent RNCM/SW needs at this time. No housing, transportation, insurance, resources concerns identified at this time. Supports in place to achieve a safe post-hospital transition. No identified barriers to accessing necessary care and/or follow-up after discharge. Plan: Patient to d/c to home when medically ready. lookback coordinator/Dairy Chemist will continue to follow patient???s progress and remain available if situation changes for coordination of care, psychosocial support and/or discharge planning. Angela Loving RN * Brief Op Note - Jessee Malone MD - 08/30/2019 2:31 PM EDT Preliminary Cardiac Catheterization Procedure Note: Patient Name: Loida Roque : [id number] MR#: [id number] Case Date: 08/30/2019 Belly Dancer: Surgeon(s) and Role: * Jessee Malone MD - Primary * Luis Tatum PA - Fellow Preoperative diagnosis: ?CAD Postoperative diagnosis: * CAD * Procedure(s) performed: [facility] Coronary angio Access: Right radial A [...] for further details. JOCY Montaño 08/30/2019 Pager [phone] * Plan of Care - Efrain Verma [...] AM EDT Tech [place] [phone] [place] 10/08/2023 9:30 AM EDT Office Visit [place] [phone] MD [facility] [place] [address] 10/21/2023 10:30 AM EDT Appointment [place] [address] Mary Reyes [facility] [address] 10/21/2023 11:30 AM EDT Appointment [place] [address] Mary Reyes [facility] [place] [address] 10/21/2023 12:30 PM EDT Appointment [place] [address] Mary Reyes [facility] [place] [address] 10/21/2023 1:30 PM EDT Appointment [place] [address] Mary Reyes [facility] [place] [address] 10/21/2023 2:30 PM EDT Appointment [place] [address] Mary Reyes [facility] [address] 10/26/2023 4:00 PM EDT Office Visit Cardiology at [address] [phone] Jaspreet Kinsey MD [facility] [place] [address] 10/28/2023 9:00 AM EDT Office Visit [place]ology [place] [address] 10/29/2023 10:00 AM EDT Clinical Support [place] [address] 10/29/2023 10:15 AM EDT Procedure visit [place]ology [place] [address] 11/01/2023 5:00 PM EDT Office Visit [place] [address] Selene Browning, PhD [facility] [place] [address] 11/22/2023 4:40 PM EDT Office Visit Cardiology at [address] [phone] Porsha Mcdaniels MD [facility] [place] [address] 12/13/2023 10:00 AM EDT Clinical Support [place] [address] Lucero Romero, [facility] [place] [address] documented as of this encounter Procedures Procedure [...] ventilatory defect (FVC >70%) Zoe Morocho MD Nataliarocio Urbina EXPLOSIVE OPERATOR PFT ORDERABLES * EKG 12 Lead (08/31/2019 7:05 AM EDT) Ventricular rate 51 BPM MUSE SYSTEM Atrial Rate 51 BPM MUSE SYSTEM P-R Interval 186 ms MUSE SYSTEM QRS Duration 82 ms MUSE SYSTEM Q-T Interval 546 ms MUSE SYSTEM QTC Calculated (Bezet) 503 ms MUSE SYSTEM Calculated P [place] 18 degrees MUSE SYSTEM Calculated R [place] 52 degrees MUSE SYSTEM Calculated T [place] 13 degrees MUSE SYSTEM INTERPRETATION Sinus [...] 4:12 AM EDT) Neutrophils % 45.2 % [facility] Neutr Abs (ANC) 2.73 1.70 - 6.10 x10(3)/mc L [facility] Lymphocytes % 34.8 % [facility] Lymphocytes Abs 2.1 0.9 - 3.2 x10(3)/mc L [facility] Monocytes % 10.1 % [facility] Monocyte Abs 0.6 0.3 - 0.9 x10(3)/[facility] Eosinophils % 8.9 % [facility] Eosinophils Abs 0.5(H) 0.0 - 0.4 x10(3)/[facility] Basophils % 0.8 % [facility] Basophils Abs 0.0 0.0 - 0.1 x10(3)/[facility] Immature Gran % 0.20 % [facility] Comment: Immature granulocytes(IG's)percentage and absolute count will include metamyelocytes, myelocytes, and promyelocytes. Blood smears from CBCs yielding IG's will be scanned manually for concordance. If this scan disagrees with the automated IG or if promyelocytes are noted, a manual differential will be performed. Shonda Gran Abs 0.01 0.00 - 0.04 x10(3)/[facility] Blood specimen (specimen) 08/31/2019 4:12 AM EDT 08/31/2019 4:29 AM EDT Narrative Resulting Agency Comment Spec In Lab Abeba SANDRA HEMATOLOGY ORDERABLE S [facility] [place] [address] * (ABNORMAL) Hemogram (08/31/2019 4:12 AM EDT) WBC 6.0 4.0 - 9.5 x10(3)/[facility] LABORATORY RBC 5.08 4.00 - 5.21 x10(6)/[facility]ORY Hemoglobin 15.7(H) 11.7 - 15.5 gm/dL [facility] Hematocrit 47.0(H) 35.7 - 45.8 % [facility] MCV 92.5 82.6 - 94.4 fL [facility] MCH 30.9 27.1 - 32.0 pg [facility] MCHC 33.4 31.7 - 35.0 gm/dL [facility] Platelets 255 145 - 357 x10(3)/[facility] LABORATORY RDWSD 45.3 37.0 - [address].0 [facility] LABORATORY RDWCV 13.2 11.5 - 14.1 % [facility] MPV 11.4 7.6 - 12.9 fL [facility] nRBC % Auto 0.0 % [facility] nRBC Abs Auto 0.000 0.000 - 0.000 x10(3)/[facility] Blood specimen (specimen) 08/31/2019 4:12 AM EDT 08/31/2019 4:29 AM EDT Narrative Resulting Agency Comment Spec In Lab Abeba SANDRA HEMATOLOGY ORDERABLE S Performing Organization Address [facility] de Phone Number [facility] [place] [address] * Magnesium (08/31/2019 4:12 AM EDT) Magnesium 0.92 0.69 - 1.07 mmol/L [facility] Blood specimen (specimen) 08/31/2019 4:12 AM EDT 08/31/2019 4:29 AM EDT Narrative Resulting Agency Comment Spec In Lab Manish Benitez MD CHEMISTRY ORDERABL ES Performing Organization Address [facility] de Phone Number [facility] [place] [address] * (ABNORMAL) BMP w/fasting Glucose (08/31/2019 4:12 [...] of Diabetes Mellitus, Position Statement from the [place] [employer]. ??Diabetes Care, Volume 33, Supplement [...] of body mass or the acutely ill. http://Crazidea/[facility] eGFR 85 >=60 mL/min/1. 73 m?? [facility] Comment: The eGFR was calculated using the CKD-EPI equation. As with all creatinine based estimates of kidney function, eGFR values calculated with the CKD-EPI equation are not accurate in patients with acute kidney failure, extremes of body mass or the acutely ill. http://Crazidea/[facility] Blood specimen (specimen) 08/31/2019 4:12 AM EDT 08/31/2019 4:29 AM EDT Narrative Resulting Agency Comment Spec In Lab Manish Benitez MD CHEMISTRY ORDERABL ES Performing Organization Address [facility]/State/ZIP Co de Phone Number [facility] [place] [address] * CARDIAC CATHETERIZATION (08/30/2019 2:40 PM EDT) Anatomical Region Laterality Modality Other Narrative 08/30/2019 2:59 PM EDT ?[facility] ? Cardiac Catheterization/Intervention Report ? Patient Name: Neisha, Loida ? Procedure Date: 08/30/2019 ? A #: [id number] ? Primary Physician: Kira, Jessee T ? Case #: [id number] ? File Name: [id number] ? Catheterization Order Number: [id number] ? [facility] ? Final Report [place], [place] ? Patient Name: ? Loida Neisha ? ID#: ?[id number] ? : ?1970 ? Procedure Date: ? [...] was Urgent. The indication for ?the labor and employment paralegal visit is ACS less than or equal [...] Procedure Note Jessee Malone MD - 08/30/2019 [facility] Cardiac Catheterization/Intervention Report Patient Name: Loida Roque Procedure Date: 08/30/2019 A #: [id number] Primary Physician: Jessee Malone Case #: [id number] File Name: [id number] Catheterization Order Number: [id number] [facility] FinalReport [place], [place] Patient Name: Loida Roque ID#:[id number] :1970 Procedure Date: August 30, 2019 Case [...] was designated as ASA Class III. The [facility] clinical frailtyscale is 2: Well. Diagnostic Tests: Prior Coronary Angiography: LV ejection fraction within 6 months is 65%. Medications Prior to Procedure: Aspirin. Indications for Diagnostic Cath: The priority of the diagnostic procedure was Urgent. The indicationfor the labor and employment paralegal visit is ACS less than or equal [...] ?NEISHA LOIDA ?(Age): 1970(49y) Med Rec#: ? [id number] ?Sex: ?F ? Site Loc: ? [facility] ?Ht / Wt: ??163(cm)/94(kg) Pt. Loc: ?Adult Floor ? BSA: ?1.99 Study Date: ?? 08/30/2019 ?Pt. Type: Inpatient Tape: ? Referring: POOJA IYER J Reading: Jose Chambers ([id number]) Hospital Superintendent: Jaspreet Oneil [facility] Interpreting Fellow: Poncho Yates ([id number]) Diagnosis: *Non-ST elevation (NSTEMI) myocardial infarction (I21.4) [...] Vmax ?0.35 ? m/sec ? MV deceleration [id number] ?msec ? MV A-wave Vmax ?0.25 ? [...] ? Mid-Inferior ?Normal ? Mid-Inferoseptal ?Normal ? Castaner-Septal ? Normal ? [place]er-Anterior ? Normal ? [place]-Lateral ?Normal ? [place]er-Inferior ? Normal ? Cast[place]er-Tip ?Normal ? This report has been electronically signed by: Jose Chambers MD ? 08/30/2019 14:21:57 Images reviewed and interpretation verified [facility] Cardiac Ultrasound Laboratory Procedure Note Jose Chambers MD - 08/30/2019 Procedure: Transthoracic Echocardiogram Patient: NEISHA VÁSQUEZ(Age): 1970(49y) Med Rec#: [id number] Sex: F Site Loc: [facility] Ht / Wt: 163(cm)/94(kg) Pt. Loc: Adult Floor BSA: 1.99 Study Date: 08/30/2019 Pt. Type: Inpatient Tape: Referring: POOJA IYER J Reading: Jose Chambers ([id number]) Hospital Superintendent: Jaspreet Oneil RDCS Interpreting Fellow: Poncho Yates ([id number]) Diagnosis: *Non-ST elevation (NSTEMI) myocardial infarction (I21.4) [...] MV E-wave Vmax 0.35 m/sec MV deceleration [id number] msec MV A-wave Vmax 0.25 m/sec MV [...] Normal Mid-Posterolateral Normal Mid-Inferior Normal Mid-Inferoseptal Normal Castaner-Septal Normal Castaner-Anterior Normal Castaner-Lateral Normal Castaner-Inferior Normal Cast[place]er-Tip Normal This report has been electronically signed by: Jose Chambers MD 08/30/2019 14:21:57 Images reviewed and interpretation verified [facility] Cardiac Ultrasound Laboratory Manish Benitez MD ECHO ORDERABLES * EKG 12 Lead (08/30/2019 10:28 AM EDT) Ventricular rate 52 BPM MUSE SYSTEM Atrial Rate 52 BPM MUSE SYSTEM P-R Interval 162 ms MUSE SYSTEM QRS Duration 84 ms MUSE SYSTEM Q-T Interval 536 ms MUSE SYSTEM QTC Calculated (Bezet) 498 ms MUSE SYSTEM Calculated P [place] -9 degrees MUSE SYSTEM Calculated R [place] 43 degrees MUSE SYSTEM Calculated T [place] -27 degrees MUSE SYSTEM INTERPRETATION Sinus bradycardia [...] (unfractionated) Level (08/30/2019 2:53 AM EDT) Pathologist [facility] Heparin UFH Level 0.44 IU/mL [facility] Comment: Guidelines for therapeutic unfractionated [...] HEMATOLOGY ORDERAB LES [facility] [place] [address] * (ABNORMAL) Differential, Automated (08/30/2019 2:53 AM EDT) Neutrophils % 52.4 % [facility] Neutr Abs (ANC) 3.85 1.70 - 6.10 x10(3)/[facility] Lymphocytes % 29.3 % [facility] Lymphocytes Abs 2.2 0.9 - 3.2 x10(3)/[facility] Monocytes % 9.1 % [facility] Monocyte Abs 0.7 0.3 - 0.9 x10(3)/[facility] Eosinophils % 8.6 % [facility] Eosinophils Abs 0.6(H) 0.0 - 0.4 x10(3)/[facility] Basophils % 0.5 % [facility] Basophils Abs 0.0 0.0 - 0.1 x10(3)/[facility] Immature Gran % 0.10 % [facility] Comment: Immature granulocytes(IG's)percentage and absolute count will include metamyelocytes, myelocytes, and promyelocytes. Blood smears from CBCs yielding IG's will be scanned manually for concordance. If this scan disagrees with the automated IG or if promyelocytes are noted, a manual differential will be performed. Shonda Gran Abs 0.01 0.00 - 0.04 x10(3)/ L [facility] Blood specimen (specimen) 08/30/2019 2:53 AM EDT 08/30/2019 3:01 AM EDT Narrative Resulting Agency Comment Spec In Lab Abeba Zoraida SANDRA HEMATOLOGY ORDERABLE S [facility] [place] [address] * (ABNORMAL) Hemogram (08/30/2019 2:53 AM EDT) WBC 7.4 4.0 - 9.5 x10(3)/[facility] LABORATORY RBC 4.84 4.00 - 5.21 x10(6)/[facility] LABORATORY Hemoglobin 14.8 11.7 - 15.5 gm/dL [facility] Hematocrit 44.8 35.7 - 45.8 % [facility] MCV 92.6 82.6 - 94.4 [facility] LABORATORY MCH 30.6 27.1 - 32.0 pg [facility] MCHC 33.0 31.7 - 35.0 gm/dL [facility] Platelets 272 145 - 357 x10(3)/[facility] LABORATORY RDWSD 46.2(H) 37.0 - 46.0 [facility] LABORATORY RDWCV 13.5 11.5 - 14.1 % [facility] MPV 10.9 7.6 - 12.9 [facility]OR[facility]ORY nRBC % Auto 0.0 % [facility] nRBC Abs Auto 0.000 0.000 - 0.000 x10(3)/[facility] LABOR[facility]ORY Blood specimen (specimen) 08/30/2019 2:53 AM EDT 08/30/2019 3:01 AM EDT Narrative Resulting Agency Comment Spec In Lab Abeba Zoraida SANDRA HEMATOLOGY ORDERABLE S [facility] [place] [address] * Magnesium (08/30/2019 2:53 AM EDT) Magnesium 0.90 0.69 - 1.07 mmol/L [facility] Blood specimen (specimen) 08/30/2019 2:53 AM EDT 08/30/2019 3:01 AM EDT Narrative Resulting Agency Comment Spec In Lab Manish Benitez MD CHEMISTRY ORDERABL ES [facility] [place] [address] * (ABNORMAL) BMP w/fasting Glucose (08/30/2019 2:53 [...] of Diabetes Mellitus, Position Statement from the [place] [employer]. ??Diabetes Care, Volume 33, Supplement [...] of body mass or the acutely ill. http://Crazidea/[facility] eGFR 69 >=60 mL/min/1. 73 m?? [facility] Comment: The eGFR was calculated using the CKD-EPI equation. As with all creatinine based estimates of kidney function, eGFR values calculated with the CKD-EPI equation are not accurate in patients with acute kidney failure, extremes of body mass or the acutely ill. http://Crazidea/[facility] Blood specimen (specimen) 08/30/2019 2:53 AM EDT 08/30/2019 3:01 AM EDT Narrative Resulting Agency Comment Spec In Lab Manish Benitez MD CHEMISTRY ORDERABL ES Performing Organization Address [facility] Co de Phone Number [facility] [place] [address] * Triglyceride (08/30/2019 2:53 AM EDT) Triglycerides 203 mg/dL [facility] Comment: Average Risk/Lower Risk: <150 mg/dL Borderline High Risk: 150-199 mg/dL High Risk: 200-499 mg/dL Very High Risk: >sj=075 mg/dL Blood specimen (specimen) 08/30/2019 2:53 AM EDT 08/30/2019 3:01 AM EDT Narrative Resulting Agency Comment Spec In Lab Manish Benitez MD CHEMISTRY ORDERABL ES Performing Organization Address City/[facility]/ZIP Co de Phone Number [facility] [place] [address] * HDL/Cholesterol Profile (08/30/2019 2:53 AM EDT) Chol, Total 220 mg/dL [facility] Comment: Lower Risk: <200 mg/dL Average Risk: 200-239 mg/dL Higher Risk: >kj=033 mg/dL HDL 34 mg/dL [facility] [...] greater than or equal to 190 mg/dL. http://XVionics.com/XAP-CBX-Cqtuwpqzn Measure LDL if Total Cholesterol minus HDL Cholesterol is greater than 220 mg/dL. Adults aged 40-75 with LDL 70-189 mg/dL should have their 10 year ASCVD risk estimated with the ACC/AHA ASCVD risk solar sales estimator http://tools.acc.org/RSRCU-Kwkf-Qbjeibzrm/ Statin should be discussed if risk greater [...] CHEMISTRY ORDERABL ES [facility] [place] [place] [address] * LDL Cholesterol, Direct (08/30/2019 2:53 AM EDT) LDL Chol Direct 165 mg/dL [facility] Comment: Lowest Risk: <100 mg/dL Lower Risk: 100-129 mg/dL Borderline High Risk: 130-159 mg/dL High Risk: 160-189 mg/dL Very High Risk: >zy=499 mg/dL Blood specimen (specimen) 08/30/2019 2:53 AM EDT 08/30/2019 3:01 AM EDT Narrative Resulting Agency Comment Spec In Lab Manish Benitez MD CHEMISTRY ORDERABL ES [facility] [place] [place] [address] * Hemoglobin A1c (08/30/2019 2:53 AM EDT) [...] 1, S67-74 Est Avg Gluc 108 mg/dL [facility] Comment: [...] into estimated average glucose values. ??Diabetes Care 2008:31(8):5837-1862. Blood specimen (specimen) 08/30/2019 2:53 AM EDT 08/30/2019 3:01 AM EDT Narrative Resulting Agency Comment Spec In Lab Manish Benitez MD CHEMISTRY ORDERABL ES Performing Organization Address [facility] de Phone Number [facility] [place] [place] [address] * CK (08/30/2019 2:53 AM EDT) CK, Total 82 0 - 160 unit/L [facility] Blood specimen (specimen) 08/30/2019 2:53 AM EDT 08/30/2019 3:01 AM EDT Narrative Resulting Agency Comment Spec In Lab Manish Benitez MD CHEMISTRY ORDERABL ES Performing Organization Address [facility] Phone Number [facility] [place] [address] * Troponin (08/30/2019 2:53 AM EDT) Troponin-T [...] meets the diagnosis for a myocardial infarction ([place]). Detection of a rise and/or fall of cTnT, with at least one value greater than the 99th percentile (> or = 0.01) and with at least one of the following ?? Symptoms of ischemia ?? New or presumed new significant UZ-oiltwxg-C wave (ST-T) changes or new left bundle [...] additional sample may be indicated. Reference: Third [place] Definition of Myocardial Infarction. Journal of the [place] College of Cardiology 2012;60:1581-98 Blood specimen (specimen) 08/30/2019 2:53 AM EDT 08/30/2019 3:01 AM EDT Narrative Resulting Agency Comment Spec In Lab Manish Benitez MD CHEMISTRY ORDERABL ES [facility] [place] [place] [address] * (ABNORMAL) Differential, Automated (08/29/2019 8:30 PM EDT) Neutrophils % 56.5 % [facility] Neutr Abs (ANC) 3.58 1.70 - 6.10 x10(3)/mc L [facility] Lymphocytes % 25.9 % [facility] Lymphocytes Abs 1.6 0.9 - 3.2 x10(3)/mc L [facility] Monocytes % 8.8 % [facility] Monocyte Abs 0.6 0.3 - 0.9 x10(3)/mc L [facility] Eosinophils % 7.7 % [facility] Eosinophils Abs 0.5(H) 0.0 - 0.4 x10(3)/mc L [facility] Basophils % 0.8 % [facility] HEMATOLOGY ORDERABLE S [facility] [place] [place] [address] * (ABNORMAL) Hemogram (08/29/2019 8:30 PM EDT) WBC 6.3 4.0 - 9.5 x10(3)/[facility] RBC 5.03 4.00 - 5.21 x10(6)/[facility] Hemoglobin 15.3 11.7 - 15.5 gm/dL [facility] Hematocrit 46.4(H) 35.7 - 45.8 % [facility] MCV 92.2 82.6 - 94.4 [facility] MCH 30.4 27.1 - 32.0 pg [facility] MCHC 33.0 31.7 - 35.0 gm/dL [facility] Platelets 267 145 - 357 x10(3)/[facility] RDWSD 46.4(H) 37.0 - 46.0 [facility] RDWCV 13.6 11.5 - 14.1 % [facility] MPV 11.3 7.6 - 12.9 [facility] nRBC % Auto 0.0 % [facility] nRBC Abs Auto 0.000 0.000 - 0.000 x10(3)/[facility] Blood specimen (specimen) 08/29/2019 8:30 PM EDT 08/29/2019 9:11 PM EDT Narrative Resulting Agency Comment Spec In Lab [place] SANDRA HEMATOLOGY ORDERABLE S Performing Organization Address [facility] de Phone Number [facility] [place] [place] [address] * Heparin (unfractionated) Level (08/29/2019 8:30 PM EDT) Heparin UFH Level 0.46 IU/mL [facility] Comment: Guidelines for therapeutic unfractionated [...] MD HEMATOLOGY ORDERAB LES Performing Organization Address [facility]/ZIP Co de Phone Number [facility] [place] [place] [address] * CK (08/29/2019 8:30 PM EDT) CK, Total 94 0 - 160 unit/L [facility] Blood specimen (specimen) 08/29/2019 8:30 PM EDT 08/29/2019 9:11 PM EDT Narrative Resulting Agency Comment Spec In Lab Manish Benitez MD CHEMISTRY ORDERABL ES Performing Organization Address [facility] Co de Phone Number [facility] [place] [place] [address] * Troponin (08/29/2019 8:30 PM EDT) Pathologist [facility] Troponin-T <0.01 0.00 - 0.00 ng/mL [facility] Comment: The 99th percentile for Troponin T is less than 0.01 ng/mL, any detectable cTnT concentration using this assay should be considered elevated. According to the third universal definition of myocardial infarction the following criteria with a clinical presentation consistent with acute myocardial ischemia meets the diagnosis for a myocardial infarction ([place]). Detection of a rise and/or fall of cTnT, with at least one value greater than the 99th percentile (> or = 0.01) and with at least one of the following ?? Symptoms of ischemia ?? New or presumed new significant YH-vdimsde-P wave (ST-T) changes or new left bundle [...] additional sample may be indicated. Reference: Third [place] Definition of Myocardial Infarction. Journal of the [place] College of Cardiology 2012;60:1581-98 Blood specimen (specimen) 08/29/2019 8:30 PM EDT 08/29/2019 9:11 PM EDT Narrative Resulting Agency Comment Spec In Lab Manish Benitez MD CHEMISTRY ORDERABL ES Performing Organization Address [facility] Co de Phone Number [facility] [place] [place] [address] * EKG 12 Lead (08/29/2019 4:19 PM EDT) Ventricular rate 67 BPM MUSE SYSTEM Atrial Rate 67 BPM MUSE SYSTEM P-R Interval 164 ms MUSE SYSTEM QRS Duration 80 ms MUSE SYSTEM Q-T Interval 478 ms MUSE SYSTEM QTC Calculated (Bezet) 505 ms MUSE SYSTEM Calculated P [place] 34 degrees MUSE SYSTEM Calculated R [place] 30 degrees MUSE SYSTEM Calculated T [place] -29 degrees MUSE SYSTEM INTERPRETATION Demand pacemaker; [...] Differential, Automated (08/29/2019 3:10 PM EDT) Pathologist [facility] Neutrophils % 58.3 % [facility] Neutr Abs (ANC) 3.79 1.70 - 6.10 x10(3)/ L [facility] Lymphocytes % 22.7 % [facility] Lymphocytes Abs 1.5 0.9 - 3.2 x10(3)/[facility] Monocytes % 10.3 % [facility] Monocyte Abs 0.7 0.3 - 0.9 x10(3)/[facility] Eosinophils % 7.8 % [facility] Eosinophils Abs 0.5(H) 0.0 - 0.4 x10(3)/[facility] Basophils % 0.6 % [facility] Basophils Abs 0.0 0.0 - 0.1 x10(3)/[facility] Immature Gran % 0.30 % MAY[facility] [...] HEMATOLOGY ORDERABLE S [facility] [place] [place] [address] * (ABNORMAL) Hemogram (08/29/2019 3:10 PM EDT) WBC 6.5 4.0 - 9.5 x10(3)/[facility] RBC 4.69 4.00 - 5.21 x10(6)/[facility] Hemoglobin 14.1 11.7 - 15.5 gm/dL [facility] Hematocrit 43.8 35.7 - 45.8 % [facility] MCV 93.4 82.6 - 94.4 fL [facility] MCH 30.1 27.1 - 32.0 pg [facility] MCHC 32.2 31.7 - 35.0 gm/dL [facility] Platelets 235 145 - 357 x10(3)/[facility] RDWSD 47.2(H) 37.0 - 46.0 [facility] RDWCV 13.7 11.5 - 14.1 % [facility] MPV 11.5 7.6 - 12.9 [facility] nRBC % Auto 0.0 % [facility] nRBC Abs Auto 0.000 0.000 - 0.000 x10(3)/[facility] Blood specimen (specimen) 08/29/2019 3:10 PM EDT 08/29/2019 3:50 PM EDT Narrative Resulting Agency Comment Spec In Lab [place] SANDRA HEMATOLOGY ORDERABLE S Performing Organization Address [facility] Co de Phone Number [facility] [place] [address] * Hepatic Function Panel (08/29/2019 3:10 PM [...] CHEMISTRY ORDERABL ES Performing Organization Address [facility] de Phone Number [facility] [place] [place] [address] * TSH (08/29/2019 3:10 PM EDT) Pathologist [facility] TSH 1.87 0.27 - 4.20 mcIU/mL [facility] Blood specimen (specimen) 08/29/2019 3:10 PM EDT 08/29/2019 3:52 PM EDT Narrative Resulting Agency Comment Spec In Lab Manish Benitez MD CHEMISTRY ORDERABL ES Performing Organization Address [facility] Co de Phone Number [facility] [place] [address] * (ABNORMAL) pro-Brain Natriuretic Peptide (08/29/2019 3:10 PM EDT) [facility] ProBNP 1,242(H) <=125 pg/mL [facility] Blood specimen (specimen) 08/29/2019 3:10 PM EDT 08/29/2019 3:52 PM EDT Narrative Resulting Agency Comment Spec In Lab Manish Benitez MD CHEMISTRY ORDERABL ES Performing Organization Address [facility] Co de Phone Number [facility] [place] [place] [address] * CK (08/29/2019 3:10 PM EDT) [facility] CK, Total 96 0 - 160 unit/L [facility] Blood specimen (specimen) 08/29/2019 3:10 PM EDT 08/29/2019 3:52 PM EDT Narrative Resulting Agency Comment Spec In Lab Manish Benitez MD CHEMISTRY ORDERABL ES Performing Organization Address [facility] Co de Phone Number [facility] [place] [address] * Troponin (08/29/2019 3:10 PM EDT) [facility] Troponin-T <0.01 0.00 - 0.00 ng/mL [facility] Comment: The 99th percentile for Troponin T is less than 0.01 ng/mL, any detectable cTnT concentration using this assay should be considered elevated. According to the third universal definition of myocardial infarction the following criteria with a clinical presentation consistent with acute myocardial ischemia meets the diagnosis for a myocardial infarction ([place]). Detection of a rise and/or fall of cTnT, with at least one value greater than the 99th percentile (> or = 0.01) and with at least one of the following ?? Symptoms of ischemia ?? New or presumed new significant GM-slneqsk-Q wave (ST-T) changes or new left bundle [...] additional sample may be indicated. Reference: Third [place] Definition of Myocardial Infarction. Journal of the [place] College of Cardiology 2012;60:1581-98 Blood specimen (specimen) 08/29/2019 3:10 PM EDT 08/29/2019 3:52 PM EDT Narrative Resulting Agency Comment Spec In Lab Manish Benitez MD CHEMISTRY ORDERABL ES Performing Organization Address [facility] Co de Phone Number [facility] [place] [address] * (ABNORMAL) APTT (08/29/2019 3:10 PM EDT) [...] MD HEMATOLOGY ORDERAB LES Performing Organization Address [facility] Co de Phone Number [facility] [place] [place] [address] * (ABNORMAL) Prothrombin Time (08/29/2019 3:10 PM EDT) PT 13.3(H) 9.4 - 12.5 sec [facility] INR 1.2 [facility] [...] HEMATOLOGY ORDERAB LES [facility] [place] [place] [address] * (ABNORMAL) Basic Metabolic Panel (non-fasting) (08/29/2019 [...] of body mass or the acutely ill. [email or web address] – MCALESTERnkf eGFR 94 >=60 mL/min/1. 73 m?? [facility] Comment: The eGFR was calculated using the CKD-EPI equation. As with all creatinine based estimates of kidney function, eGFR values calculated with the CKD-EPI equation are not accurate in patients with acute kidney failure, extremes of body mass or the acutely ill. http://Crazidea/[facility]MCnkf Blood specimen (specimen) 08/29/2019 3:10 PM EDT 08/29/2019 3:52 PM EDT Narrative Resulting Agency Comment Spec In Lab Manish Benitez MD CHEMISTRY ORDERABL ES [facility] [place] [place] [address] documented in this encounter Visit Diagnoses Diagnosis [...] area)1530 (BANNER Unhold - Provider: Admin Adt) fentaNYL 50 [...] (Intra-Procedure), Routine 1404 (Given - Provider: Bro Knig, ERWIN) nitroGLYcerin (Nitrostat) disintegrating tablet 0.4 mg [...] area)1530 (BANNER Unhold - Provider: Admin Adt) perflutren protein-A [...] UA) documented in this encounter Care Teams Sledger Relationship Specialty Start Date End Date Tmi Rogers DNP PCP - General Family Medicine 08/28/19 06/08/21 documented as of this encounter
--- OUTSIDE RECORDS SUMMARY | 2023-10-05 17:11 | XMS_ITS | Encounter Summary ---
Author Organization [facility] [place] [address] Care Team Providers Care Spud Sorter Name Role Phone Tim Rogers DNP Primary Care Provider Encounter Details Date Type Department Care Team (Late st Contact Info) Description 08/28/2019 External [place] [phone] Social History Tobacco Use Types Packs/Day Years [...] AM EDT Tech [place] [phone] [place] 10/08/2023 9:30 AM EDT Office [place] [phone] Thiago aWy MD [facility] [place] [address] 10/21/2023 10:30 AM EDT Appointment [place] [phone] Mary Reyes [employer]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 [facility] [place] [address] 10/21/2023 11:30 AM EDT Appointment Nuclear Medicine at [place] [phone] Mary [place] [address] 10/21/2023 12:30 PM EDT Appointment [place] [address] Mary [place] [address] 10/21/2023 1:30 PM EDT Appointment [place] [address] Mary [place] [address] 10/21/2023 2:30 PM EDT Appointment [place] [address] Mary Reyes [place] [address] 10/26/2023 4:00 PM EDT Office Visit Cardiology at [address] [phone] Jaspreet Kinsey MD [facility] [place] [address] 10/28/2023 9:00 AM EDT Office [place] [address] 10/29/2023 10:00 AM EDT Clinical [place] [address] 10/29/2023 10:15 AM EDT Procedure [place] [address] 11/01/2023 5:00 PM EDT Office Visit Gastroenterology at [place] [phone] Selene Browning, PhD [facility] [place] [address] 11/22/2023 4:40 PM EDT Office Visit Cardiology at [address] [address] Porsha Mcdaniels MD [facility] [place] [address] 12/13/2023 10:00 AM EDT Clinical Support [place] [address] Lucero Romero, ALVA [facility] [place] [address] documented as of this encounter Procedures Procedure Name Priority Date/Time Associated Diagnosis Comments ECG SCAN Routine 08/28/2019 documented in this encounter Results * Scan Doc: ECG (08/28/2019) Historical Provider MD FLEMING MGTalia SCAN EX T ORDR/RSLT documented in this encounter Visit Diagnoses Not on filedocumented in this encounter Care Teams Spud Sorter Relationship Specialty Start Date End Date Tim Rogers DNP PCP - General Family Medicine 08/28/19 06/08/21 documented as of this encounter
--- OUTSIDE RECORDS SUMMARY | 2023-10-05 17:11 | XMS_ITS | Encounter Summary ---
Author Organization [facility] [place] [place] [address] Care Team Providers Care E Commerce Analyst Name Role Phone Tim Rogers DNP Primary Care Provider Encounter Details Date Type Department Care Team (Late st Contact Info) Description 05/06/2020 Telephone [place] [phone] Virginia Marc Social History Tobacco Use Types [...] AM EDT Tech [place] [phone] [place] 10/08/2023 9:30 AM EDT Office [place] [address] MD [facility] [place] [address] 10/21/2023 10:30 AM EDT Appointment [place] [address] Mary Reyes [facility] [place] [address] 10/21/2023 11:30 AM EDT Appointment [place] [address] Mary Reyes [facility] [place] [address] 10/21/2023 12:30 PM EDT Appointment [place] [address] Mary Reyes [facility] [place] [address] 10/21/2023 1:30 PM EDT Appointment [place] [address] Mary Reyes [facility] [place] [address] 10/21/2023 2:30 PM EDT Appointment [place] [address] Mary Reyes [facility] [place] [address] 10/26/2023 4:00 PM EDT Office Visit Cardiology at [address] [phone] Jaspreet Kinsey MD [facility] [place] [address] 10/28/2023 9:00 AM EDT Office Visit [place] [address] 10/29/2023 10:00 AM EDT Clinical Support [place] [address] 10/29/2023 10:15 AM EDT Procedure visit [place] [address] 11/01/2023 5:00 PM EDT Office [place] [address] Selene Browning, PhD [facility] [place] [address] 11/22/2023 4:40 PM EDT Office Visit Cardiology at [address] [address] Porsha Mcdaniels MD [facility] [place] [address] 12/13/2023 10:00 AM EDT Clinical Support [place] [address] Lucero Romero, RD [facility] [place] [address] documented as of this encounter Visit Diagnoses Not on filedocumented in this encounter Care Teams E Commerce Analyst Relationship Specialty Start Date End Date Tim Rogers DNP PCP - General Family Medicine 08/28/19 06/08/21 documented as of this encounter
--- OUTSIDE RECORDS SUMMARY | 2023-10-05 17:11 | XMS_ITS | Encounter Summary ---
Author Organization [facility] [place] [address] Care Team Providers Care Manager Transmission Name Role Phone Tim Rogers DNP Primary Care Provider [phone] Reason for Visit * Reason Comments Referral Dyspnea On Exertion * Consultation (Routine) - Specialty Diagnoses / Procedures Referred By Jayant harris Referred To Contact Pulmonology Diagnoses Other forms of dyspnea Virginia Neal MD [facility] [address] [place] [address] [facility] [place]mon[facility] [address] [place] [phone] Referral ID Status Reason Start Date Expiration Date V isits Requested Visits Authorized [id number] Consult, Test & Treat Connection Center PCP Updated and/or Approved 04/05/2020 10/02/2020 6 6 Encounter Details Date Type Department Care Team (Latest Contact Info) Description 08/01/2020 1:00 PM EDT Office Visit [place] [address] Beto Miller MD [facility] [place] [address] Asthma, chronic, moderate persistent, uncomplicated [...] Miller MD - 08/01/2020 1:00 PM EDT [facility] Section of Pulmonary Medicine Outpatient Consultation Date of Encounter: 08/01/2020 Referring Provider: Virginia Neal Md [address] [place] [address] PCP: Tim Rogers APRN [address] [place] [address] Reason for Consult: I was asked to [...] unable to breathe and was sent to [facility] for the possibility of non-ST elevation myocardial [...] ONCE ??? fluticasone propionate (FLONASE) 50 mcg/actuation [place], Suspension 1 spray by Each Nare route [...] CT scan of the chest performed in [facility]. 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 She has been prescribed Symbicort but [...] MD Pulmonary and Critical Care Medicine Pager #[phone] documented in this encounter Plan of Treatment Upcoming Encounters Date Type Department Care Team (Late st Contact Info) Description 10/08/2023 8:30 AM EDT Tech [place] [address] Channing Escobedo [place] 10/08/2023 9:30 AM EDT Office Visit [place] [phone] MD [facility] [place] [address] 10/21/2023 10:30 AM EDT Appointment [place] [address] Mary Reyes [facility] [place] [address] 10/21/2023 11:30 AM EDT Appointment [place] [phone] [place] [address] 10/21/2023 12:30 PM EDT Appointment [place] [address] Mary Reyes, [place] [address] 10/21/2023 1:30 PM EDT Appointment [place] [address] Mary Reyes, [place] [address] 10/21/2023 2:30 PM EDT Appointment [place] [address] Mary Reyes, [place] [address] 10/26/2023 4:00 PM EDT Office Visit Cardiology at [address] [phone] Jaspreet Kinsey MD [facility] [place] [address] 10/28/2023 9:00 AM EDT Office [place] [address] 10/29/2023 10:00 AM EDT Clinical [place] [address] 10/29/2023 10:15 AM EDT Procedure [place] [address] 11/01/2023 5:00 PM EDT Office Visit [place] [address] Selene Browning, PhD [facility] [place] [address] 11/22/2023 4:40 PM EDT Office Visit Cardiology at [place] [phone] Porsha Mcdaniels MD [facility] [place] [address] 12/13/2023 10:00 AM EDT Clinical Support [place] [phone] [facility] [place] [address] documented as of this encounter Visit Diagnoses Diagnosis Asthma, chronic, moderate persistent, uncomplicated documented in this encounter Care Teams Manager Transmission Relationship Specialty Start Date End Date Tim Rogers DNP PCP - General Family Medicine 08/28/19 06/08/21 documented as of this encounter
--- OUTSIDE RECORDS SUMMARY | 2023-10-05 17:11 | XMS_ITS | Encounter Summary ---
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 Discharge Summary Patient Name: Loida Roque Patient Age: 49 y.o. Language: French Race: White Ethnicity: Not nor Admit date: [...] pain overnight ~3 weeksago concerning for missed MN. ??In the ED, her EKG was abnormal [...] follow-up visit please call one of the surgery scheduling coordinator on Wednesday-Wednesday between the hours of 8A- 5PM. Cardiology Clinic number @ [phone] If off hours contact the cardiac fellow on- call. Hospital Press Operator Helper can help you. Hospital phone number [phone] Return to work: In 1 week Drivin hours post catheterization Follow up Appointments: Doctor Where Phone # Date Time Bouchra Frias APRN [address] / [facility] [address] 09/13/19 8:30 Discharge References/Attachments None Discussed with MD Natalia Lira APRN Pager [phone] 08/31/2019 documented in this encounter Discharge Instructions * Discharge Instructions* Natalia Urbina APRN - 08/31/2019 3:54 PM EDT Call your doctor if: Chest pain, dyspnea, pain or swelling in legs occurs. If you have non-emergent questions, prior to your follow-up visit please call one of the surgery scheduling coordinator on Wednesday-Wednesday between the hours of 8A- 5PM. Cardiology Clinic number @ [phone] If off hours contact the cardiac fellow on- call. Hospital Press Operator Helper can help you. [facility] phone number [phone] Return to work: In 1 week Drivin hours post catheterization Follow up Appointments: Doctor Where Phone # Date Time Bouchra Frias APRN [address] / [facility] [address] 09/13/19 8:30 * Attachments The following attachments cannot be sent through Care Everywhere. * Cardiac Catheterization: Left (French) documented in this encounter Medications at Time of Discharge Medication Sig Dispensed Refills Start Date End Date fluticasone propionate (FLONASE) 50 mcg/actuation [place], Suspension 1 spray by Each Nare route [...] Spirometry Patient Loida Roque 49 y.o. 1970 [id number] Spirometry Spirometry performed successfully. Waiting for read [...] Pt wheeled out of the unit with WOMEN'S SOCCER COACH. * Leonardo Jolly - 08/31/2019 12:25 PM EDT Nutrition Services Note - Low Nutrition Acuity Loida Roque is a 49 y.o. female Reason for intervention: education [facility] + NA Nutrition Plan: Patient states that she follows a low sodium restriction a home. Educational Material Guidelines for a Heart Healthy Lifestyle provided. Continue current diet. Educational Material provided. Monitor weight. Encourage good oral intake. Support and encouragement provided. Nutrition will continue to monitor and follow up with patient as needed. Active Orders Diet Daily Healthy Menu Choices/Cardiac diet ([facility]-Diet) Frequency: Effective Now Number of Occurrences: Until [...] consulted in the interim. Leonardo Jolly Pager: [phone] * Manish Benitez MD - 08/31/2019 9:33 AM EDT Images from the original note were not included. Inpatient Cardiology Progress Note Patient Name: Loida Roque Service: REC THERAPIST / PA Responsible Attending: Manish Benitez MD [...] of report for additional findings. [facility] 08/29 Preliminary findings: Right dominant Normal [...] overnight ~3 weeks ago concerning for missed MN. ??In the ED, her EKG was abnormal with diffuse STTW abnormalities but unchanged from prior EKG in 200 7.?Troponin??I??positive at 0.25 (ULN 0.06). ??Vitals stable and patient asymptomatic at rest. ??DDimer positive at 1037 thus??CT-PE protocol??completed. ??No PE or acute aortic pathology. ??She is transferred for further work up of NSTEMI. ??EF 62% and no wall motions seen on echo. [facility] with normal cors and LVEDP 15. [...] EF 62% and no WMA [facility] with normal cors A1C 5.4% Bedside PFTs today ?? FULL CODE Discussed with MD Natalia Lira, SALES REPRESENTATIVE [employer] Pager [phone] 08/31/2019 Cardiology Attending Note I interviewed and examined the patient during comprehensive bedside rounds. I concur with the summary of interval events, active hospital-focused problem list and plan of care as described in the note below. I personally reviewed the medications, laboratory results, treatment decisions and updated the patient. Manish Benitez MD, FACP, FACC Section of Cardiovascular Medicine [facility] Box Hinge And Lock Attacheradvanced analytics associate [facility] at [facility] This patient meets or has [...] Progress Note Patient Name: Loida Roque Service: REC THERAPIST / PA Responsible Attending: Manish Benitez MD [...] overnight ~3 weeks ago concerning for missed MN. 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 fluticasone propionate (FLONASE) 50 mcg/actuation [place], Suspension 1 spray by Each Nare route [...] overnight ~3 weeks ago concerning for missed MN. In the ED, her EKG was abnormal with diffuse STTW abnormalities but unchanged from prior EKG in 2006. Troponin I positive at 0.25 (ULN 0.06). Vitals stable and patient asymptomatic at rest. DDimer positive [id number] thus CT-PE protocol completed. No PE or acute aortic pathology. She is transferred for furtherwork up of NSTEMI. Plan Echo and coronary angiography. TREATMENT PLAN: #NSTEMI Admit to cardiology Trend troponin - 1st negative at [facility] ProBNP 1242; Admit weight 207 lbs; Lasix [...] FACP, FACC Section of Cardiovascular Medicine [facility] Box Hinge And Lock Attacheradvanced analytics associate [facility] at [facility] This patient meets or has [...] care provider on file: Tim Rogers, SALES REPRESENTATIVE [employer] [phone] Advance Directive on file and Code Status: Full Code Patient???s Functional Status: Independent w/o device Living Situation: lives with Boby Roque (Spouse) [phone] (M) at [address] [place] [address] Supports: Boby, Mother son and daughter Assessment: Patient with no apparent RNCM/SW needs at this time. No housing, transportation, insurance, resources concerns identified at this time. Supports in place to achieve a safe post-hospital transition. No identified barriers to accessing necessary care and/or follow-up after discharge. Plan: Patient to d/c to home when medically ready. bell cleaner/Director Embalmer will continue to follow patient???s progress and remain available if situation changes for coordination of care, psychosocial support and/or discharge planning. Angela Loving RN * Brief Op Note - Jessee Malone MD - 08/30/2019 2:31 PM EDT Preliminary Cardiac Catheterization Procedure Note: Patient Name: Loida Roque : [id number] MR#: [id number] Case Date: 08/30/2019 Press Operator Helper: Surgeon(s) and Role: * Jessee Malone MD - Primary * Luis Tatum PA - Fellow Preoperative diagnosis: ?CAD Postoperative diagnosis: * CAD * Procedure(s) performed: [facility] Coronary angio Access: Right radial A [...] for further details. JOCY Montaño 08/30/2019 Pager [phone] * Plan of Care - Efrain Verma [...] AM EDT Tech [place] [phone] Channing Escobedo [place] 10/08/2023 9:30 AM EDT Office Visit [place] [phone] MD [facility] [place] [address] 10/21/2023 10:30 AM EDT Appointment [place] [address] Calvino, Mary M, [facility] [place] [address] 10/21/2023 11:30 AM EDT Appointment Nuclear Medicine at [place] [phone] Mary Reyes [facility] [place] [address] 10/21/2023 12:30 PM EDT Appointment [place] [address] Mary Reyes [facility] [place] [address] 10/21/2023 1:30 PM EDT Appointment [place] [address] Mary Reyes [facility] [place] [address] 10/21/2023 2:30 PM EDT Appointment [place] [address] Mary Reyes [facility] [place] [address] 10/26/2023 4:00 PM EDT Office Visit Cardiology at [address] [phone] Jaspreet Kinsey MD [facility] [place] [address] 10/28/2023 9:00 AM EDT Office [place] [address] 10/29/2023 10:00 AM EDT Clinical [place] [address] 10/29/2023 10:15 AM EDT Procedure [place] [address] 11/01/2023 5:00 PM EDT Office Visit [place] [address] Selene Browning, PhD [facility] [place] [address] 11/22/2023 4:40 PM EDT Office Visit Cardiology at [address] [phone] Porsha Mcdaniels MD [facility] [place] [address] 12/13/2023 10:00 AM EDT Clinical Support [place] [address] [facility] [place] [address] documented as of this encounter Procedures Procedure [...] >70%) Zoe Morocho MD Natalia Urbina SALES REPRESENTATIVE [employer] PFT ORDERABLES * EKG 12 Lead (08/31/2019 7:05 AM EDT) Ventricular rate 51 BPM MUSE SYSTEM Atrial Rate 51 BPM MUSE SYSTEM P-R Interval 186 ms MUSE SYSTEM QRS Duration 82 ms MUSE SYSTEM Q-T Interval 546 ms MUSE SYSTEM QTC Calculated (Bezet) 503 ms MUSE SYSTEM Calculated P [place] 18 degrees MUSE SYSTEM Calculated R [place] 52 degrees MUSE SYSTEM Calculated T [place] 13 degrees MUSE SYSTEM INTERPRETATION Sinus bradycardia [...] [facility] Lymphocytes % 34.8 % [facility] Lymphocytes Abs 2.1 0.9 - 3.2 x10(3)/mc L [facility] Monocytes % 10.1 % [facility] Monocyte Abs 0.6 0.3 - 0.9 x10(3)/mc L [facility] Eosinophils % 8.9 % [facility] Eosinophils Abs 0.5(H) 0.0 - 0.4 x10(3)/[facility] LABORATORY Basophils % 0.8 % [facility] Basophils Abs 0.0 0.0 - 0.1 x10(3)/[facility] LABORATORY Immature Gran % 0.20 [...] Shonda Gran Abs 0.01 0.00 - 0.04 x10(3)/[facility] LABORATORY Blood specimen (specimen) 08/31/2019 4:12 AM EDT 08/31/2019 4:29 AM EDT Narrative Resulting Agency Comment Spec In Lab [place] SANDRA HEMATOLOGY ORDERABLE S [facility] [place] [address] * (ABNORMAL) Hemogram (08/31/2019 4:12 AM EDT) WBC 6.0 4.0 - 9.5 x10(3)/[facility] LABORATORY RBC 5.08 4.00 - 5.21 x10(6)/[facility] LABORATORY Hemoglobin 15.7(H) 11.7 - 15.5 gm/dL [facility] Hematocrit 47.0(H) 35.7 - 45.8 % [facility] MCV 92.5 82.6 - 94.4 fL [facility] MCH 30.9 27.1 - 32.0 pg [facility] MCHC 33.4 31.7 - 35.0 gm/dL [facility] Platelets 255 145 - 357 x10(3)/[facility] LABORATORY RDWSD 45.3 37.0 - 46.0 fL [facility] RDWCV 13.2 11.5 - 14.1 % [facility] MPV 11.4 7.6 - 12.9 fL [facility] nRBC % Auto 0.0 % [facility] nRBC Abs Auto 0.000 0.000 - 0.000 x10(3)/[facility] LABORATORY Blood specimen (specimen) 08/31/2019 4:12 AM EDT 08/31/2019 4:29 AM EDT Narrative Resulting Agency Comment Spec In Lab [place] SANDRA HEMATOLOGY ORDERABLE S Performing Organization Address [facility]/ZIP Co de Phone Number [facility] [place] [address] * Magnesium (08/31/2019 4:12 AM EDT) Magnesium 0.92 0.69 - 1.07 mmol/L [facility] Blood specimen (specimen) 08/31/2019 4:12 AM EDT 08/31/2019 4:29 AM EDT Narrative Resulting Agency Comment Spec In Lab Manish Benitez MD CHEMISTRY ORDERABL ES Performing Organization Address [facility] Co de Phone Number [facility] [place] [address] * (ABNORMAL) BMP w/fasting Glucose (08/31/2019 4:12 [...] of Diabetes Mellitus, Position Statement from the [place] [employer]. ??Diabetes Care, Volume 33, Supplement [...] of body mass or the acutely ill. http://Gopeers/[facility] eGFR 85 >=60 mL/min/1. 73 m?? [facility] Comment: The eGFR was calculated using the CKD-EPI equation. As with all creatinine based estimates of kidney function, eGFR values calculated with the CKD-EPI equation are not accurate in patients with acute kidney failure, extremes of body mass or the acutely ill. http://Gopeers/[facility] Blood specimen (specimen) 08/31/2019 4:12 AM EDT 08/31/2019 4:29 AM EDT Narrative Resulting Agency Comment Spec In Lab Manish Benitez MD CHEMISTRY ORDERABL ES Performing Organization Address [facility]/State/ZIP Co de Phone Number [facility] [place] [address] * CARDIAC CATHETERIZATION (08/30/2019 2:40 PM EDT) Anatomical Region Laterality Modality Other Narrative 08/30/2019 2:59 PM EDT ?[facility] ? Cardiac Catheterization/Intervention Report ? Patient Name: Neisha, Loida ? Procedure Date: 08/30/2019 ? A #: [id number] ? Primary Physician: Kira, Jessee T ? Case #: [id number] ? File Name: [id number] ? Catheterization Order Number: [id number] ? [facility] ? Final Report [place], [place] ? Patient Name: ? Loida Neisha ? ID#: ?[id number] ? : ?1970 ? Procedure Date: ? [...] procedure was Urgent. 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 The [facility] clinical frailtyscale is 2: Well. Diagnostic Tests: Prior Coronary Angiography: LV ejection fraction within 6 months is 65%. Medications Prior to Procedure: Aspirin. Indications for Diagnostic Cath: The priority of the diagnostic procedure was Urgent. 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 [id number] ?Sex: ?F ? Site Loc: ? [facility] ?Ht / Wt: ??163(cm)/94(kg) Pt. Loc: ?Adult Floor ? BSA: ?1.99 Study Date: ?? 08/30/2019 ?Pt. Type: Inpatient Tape: ? Referring: POOJA IYER J Reading: Jose Chambers ([id number]) Instrument Designer: Jaspreet Oneil [facility] Interpreting Fellow: Poncho Yates ([id number]) Diagnosis: *Non-ST elevation (NSTEMI) myocardial infarction (I21.4) [...] Vmax ?0.35 ? m/sec ? MV deceleration [id number] ?msec ? MV A-wave Vmax ?0.25 ? [...] ? Mid-Inferior ?Normal ? Mid-Inferoseptal ?Normal ? [place]-Septal ? Normal ? [place]-Anterior ? Normal ? [place]-Lateral ?Normal ? [place]-Inferior ? Normal ? [place]-Tip ?Normal ? This report has been electronically signed by: Jose Chambers MD ? 08/30/2019 14:21:57 Images reviewed and interpretation verified [facility] Cardiac Ultrasound Laboratory Procedure Note Jose Chambers MD - 08/30/2019 Procedure: Transthoracic Echocardiogram Patient: NEISHA VÁSQUEZ(Age): 1970(49y) Med Rec#: [id number] Sex: F Site Loc: [facility] Ht / Wt: 163(cm)/94(kg) Pt. Loc: Adult Floor BSA: 1.99 Study Date: 08/30/2019 Pt. Type: Inpatient Tape: Referring: POOJA IYER J Reading: Jose Chambers ([id number]) Instrument Designer: Jaspreet Oneil RD Interpreting Fellow: Poncho Yates ([id number]) Diagnosis: *Non-ST elevation (NSTEMI) myocardial infarction (I21.4) [...] MV E-wave Vmax 0.35 m/sec MV deceleration [id number] msec MV A-wave Vmax 0.25 m/sec MV [...] Normal Mid-Posterolateral Normal Mid-Inferior Normal Mid-Inferoseptal Normal [place]-Septal Normal [place]-Anterior Normal [place]-Lateral Normal [place]-Inferior Normal [place]-Tip Normal This report has been electronically signed by: Jose Chambers MD 08/30/2019 14:21:57 Images reviewed and interpretation verified [facility] Cardiac Ultrasound Laboratory Manish Benitez MD ECHO ORDERABLES * EKG 12 Lead (08/30/2019 10:28 AM EDT) Ventricular rate 52 BPM MUSE SYSTEM Atrial Rate 52 BPM MUSE SYSTEM P-R Interval 162 ms MUSE SYSTEM QRS Duration 84 ms MUSE SYSTEM Q-T Interval 536 ms MUSE SYSTEM QTC Calculated (Bezet) 498 ms MUSE SYSTEM Calculated P [place] -9 degrees MUSE SYSTEM Calculated R [place] 43 degrees MUSE SYSTEM Calculated T [place] -27 degrees MUSE SYSTEM INTERPRETATION Sinus bradycardia [...] MD HEMATOLOGY ORDERAB LES Performing Organization Address City/State/[facility] Co de Phone Number [facility] [place] [address] * (ABNORMAL) Differential, Automated (08/30/2019 2:53 AM EDT) Neutrophils % 52.4 % [facility] Neutr Abs (ANC) 3.85 1.70 - 6.10 x10(3)/[facility] LABORATORY Lymphocytes % 29.3 % [facility] Lymphocytes Abs 2.2 0.9 - 3.2 x10(3)/[facility] LABORATORY Monocytes % 9.1 % [facility] Monocyte Abs 0.7 0.3 - 0.9 x10(3)/[facility] LABORATORY Eosinophils % 8.6 % [facility] Eosinophils Abs 0.6(H) 0.0 - 0.4 x10(3)/[facility] LABORATORY Basophils % 0.5 % [facility] Basophils Abs 0.0 0.0 - 0.1 x10(3)/[facility] LABORATORY Immature Gran % 0.10 [...] Shonda Gran Abs 0.01 0.00 - 0.04 x10(3)/[facility] LABORATORY Blood specimen (specimen) 08/30/2019 2:53 AM EDT 08/30/2019 3:01 AM EDT Narrative Resulting Agency Comment Spec In Lab [place] SANDRA HEMATOLOGY ORDERABLE S [facility] [place] [address] * (ABNORMAL) Hemogram (08/30/2019 2:53 AM EDT) WBC 7.4 4.0 - 9.5 x10(3)/[facility] LABORATORY RBC 4.84 4.00 - 5.21 x10(6)/[facility] LABORATORY Hemoglobin 14.8 11.7 - 15.5 gm/dL [facility] Hematocrit 44.8 35.7 - 45.8 % [facility] MCV 92.6 82.6 - 94.4 fL [facility] MCH 30.6 27.1 - 32.0 pg [facility] MCHC 33.0 31.7 - 35.0 gm/dL [facility] Platelets 272 145 - 357 x10(3)/[facility] LABORATORY RDWSD 46.2(H) 37.0 - 46.0 [facility] LABORATORY RDWCV 13.5 11.5 - 14.1 % [facility] MPV 10.9 7.6 - 12.9 [facility] LABORATORY nRBC % Auto 0.0 % [facility] nRBC Abs Auto 0.000 0.000 - 0.000 x10(3)/[facility] LABORATORY Blood specimen (specimen) 08/30/2019 2:53 AM EDT 08/30/2019 3:01 AM EDT Narrative Resulting Agency Comment Spec In Lab [place] SANDRA HEMATOLOGY ORDERABLE S [facility] [place] [address] * Magnesium (08/30/2019 2:53 AM EDT) Pathologist [facility] Magnesium 0.90 0.69 - 1.07 mmol/L [facility] Blood specimen (specimen) 08/30/2019 2:53 AM EDT 08/30/2019 3:01 AM EDT Narrative Resulting Agency Comment Spec In Lab Manish Benitez MD CHEMISTRY ORDERABL ES [facility] [place] [address] * (ABNORMAL) BMP w/fasting Glucose (08/30/2019 2:53 [...] of Diabetes Mellitus, Position Statement from the [place] [employer]. ??Diabetes Care, Volume 33, Supplement [...] of body mass or the acutely ill. http://Gopeers/[facility]nk[facility] eGFR 69 >=60 mL/min/1. 73 m?? [facility] Comment: The eGFR was calculated using the CKD-EPI equation. As with all creatinine based estimates of kidney function, eGFR values calculated with the CKD-EPI equation are not accurate in patients with acute kidney failure, extremes of body mass or the acutely ill. http://Gopeers/[facility] Blood specimen (specimen) 08/30/2019 2:53 AM EDT 08/30/2019 3:01 AM EDT Narrative Resulting Agency Comment Spec In Lab Manish Benitez MD CHEMISTRY ORDERABL ES Performing Organization Address [facility] Co de Phone Number [facility] [place] [address] * Triglyceride (08/30/2019 2:53 AM EDT) Triglycerides 203 mg/dL [facility] Comment: Average Risk/Lower Risk: <150 mg/dL Borderline High Risk: 150-199 mg/dL High Risk: 200-499 mg/dL Very High Risk: >bq=307 mg/dL Blood specimen (specimen) 08/30/2019 2:53 AM EDT 08/30/2019 3:01 AM EDT Narrative Resulting Agency Comment Spec In Lab Manish Benitez MD CHEMISTRY ORDERABL ES Performing Organization Address City/[facility]/ZIP Co de Phone Number [facility] [place] [address] * HDL/Cholesterol Profile (08/30/2019 2:53 AM EDT) Chol, Total 220 mg/dL [facility] Comment: Lower Risk: <200 mg/dL Average Risk: 200-239 mg/dL Higher Risk: >fr=132 mg/dL HDL 34 mg/dL [facility] [...] greater than or equal to 190 mg/dL. http://Gourmant.com/JIM-XYE-Xwcydmavb Measure LDL if Total Cholesterol minus HDL Cholesterol is greater than 220 mg/dL. Adults aged 40-75 with LDL 70-189 mg/dL should have their 10 year ASCVD risk estimated with the ACC/AHA ASCVD risk auto body repair estimator http://tools.acc.org/GVTAN-Lfeu-Gjiadazlu/ Statin should be discussed if risk greater [...] [facility] [place] [address] * LDL Cholesterol, Direct (08/30/2019 2:53 AM EDT) LDL Chol Direct 165 mg/dL [facility] Comment: Lowest Risk: <100 mg/dL Lower Risk: 100-129 mg/dL Borderline High Risk: 130-159 mg/dL High Risk: 160-189 mg/dL Very High Risk: >hz=438 mg/dL Blood specimen (specimen) 08/30/2019 2:53 AM EDT 08/30/2019 3:01 AM EDT Narrative Resulting Agency Comment Spec In Lab Manish Benitez MD CHEMISTRY ORDERABL ES [facility] [place] [address] * Hemoglobin A1c (08/30/2019 2:53 AM EDT) [...] 1, S67-74 Est Avg Gluc 108 mg/dL [facility] Comment: eAG equivalents for [...] into estimated average glucose values. ??Diabetes Care 2008:31(8):5032-6125. Blood specimen (specimen) 08/30/2019 2:53 AM EDT 08/30/2019 3:01 AM EDT Narrative Resulting Agency Comment Spec In Lab Manish Benitez MD CHEMISTRY ORDERABL ES Performing Organization Address [facility] Co de Phone Number [facility] [place] [address] * CK (08/30/2019 2:53 AM EDT) CK, Total 82 0 - 160 unit/L [facility] Blood specimen (specimen) 08/30/2019 2:53 AM EDT 08/30/2019 3:01 AM EDT Narrative Resulting Agency Comment Spec In Lab Manish Benitez MD CHEMISTRY ORDERABL ES Performing Organization Address [facility] de Phone Number [facility] [place] [address] * Troponin (08/30/2019 2:53 AM EDT) [facility] Troponin-T <0.01 0.00 - 0.00 ng/mL [...] meets the diagnosis for a myocardial infarction (MN). Detection of a rise and/or fall of cTnT, with at least one value greater than the 99th percentile (> or = 0.01) and with at least one of the following ?? Symptoms of ischemia ?? New or presumed new significant FH-vftqtqn-N wave (ST-T) changes or new left bundle [...] additional sample may be indicated. Reference: Third [place] Definition of Myocardial Infarction. Journal of the [place] [employer] 2012;60:1581-98 Blood specimen (specimen) 08/30/2019 2:53 AM EDT 08/30/2019 3:01 AM EDT Narrative Resulting Agency Comment Spec In Lab Manish Benitez MD CHEMISTRY ORDERABL ES [facility] [place] [address] * (ABNORMAL) Differential, Automated (08/29/2019 8:30 PM EDT) Neutrophils % 56.5 % [facility] Neutr Abs (ANC) 3.58 1.70 - 6.10 x10(3)/mc L [facility] Lymphocytes % 25.9 % [facility] Lymphocytes Abs 1.6 0.9 - 3.2 x10(3)/mc L [facility] Monocytes % 8.8 % [facility] Monocyte Abs 0.6 0.3 - 0.9 x10(3)/mc L [facility] Eosinophils % 7.7 % [facility] Eosinophils Abs 0.5(H) 0.0 - 0.4 x10(3)/mc L [facility] Basophils % 0.8 % [facility] [place] [address] * (ABNORMAL) Hemogram (08/29/2019 8:30 PM EDT) WBC 6.3 4.0 - 9.5 x10(3)/[facility] RBC 5.03 4.00 - 5.21 x10(6)/[facility] Hemoglobin 15.3 11.7 - 15.5 gm/dL [facility] Hematocrit 46.4(H) 35.7 - 45.8 % [facility] MCV 92.2 82.6 - 94.4 [facility] MCH 30.4 27.1 - 32.0 pg [facility] MCHC 33.0 31.7 - 35.0 gm/dL [facility] Platelets 267 145 - 357 x10(3)/[facility] RDWSD 46.4(H) 37.0 - 46.0 [facility] RDWCV 13.6 11.5 - 14.1 % [facility] MPV 11.3 7.6 - 12.9 [facility] nRBC % Auto 0.0 % [facility] nRBC Abs Auto 0.000 0.000 - 0.000 x10(3)/[facility] Blood specimen (specimen) 08/29/2019 8:30 PM EDT 08/29/2019 9:11 PM EDT Narrative Resulting Agency Comment Spec In Lab [place] SANDRA HEMATOLOGY ORDERABLE S Performing Organization Address [facility] Co de Phone Number [facility] [place] [address] * Heparin (unfractionated) Level (08/29/2019 8:30 PM EDT) Heparin UFH Level 0.46 IU/mL GRACE COTTAGE [...] [facility] [place] [address] * CK (08/29/2019 8:30 PM EDT) CK, Total 94 0 - 160 unit/L [facility] Blood specimen (specimen) 08/29/2019 8:30 PM EDT 08/29/2019 9:11 PM EDT Narrative Resulting Agency Comment Spec In Lab Manish Benitez MD CHEMISTRY ORDERABL ES Performing Organization Address [facility] Co de Phone Number [facility] [place] [address] * Troponin (08/29/2019 8:30 PM EDT) Troponin-T [...] meets the diagnosis for a myocardial infarction (MN). Detection of a rise and/or fall of cTnT, with at least one value greater than the 99th percentile (> or = 0.01) and with at least one of the following ?? Symptoms of ischemia ?? New or presumed new significant XG-kmacmyx-F wave (ST-T) changes or new left bundle [...] additional sample may be indicated. Reference: Third [place] Definition of Myocardial Infarction. Journal of the [place] [employer] 2012;60:1581-98 Blood specimen (specimen) 08/29/2019 8:30 PM EDT 08/29/2019 9:11 PM EDT Narrative Resulting Agency Comment Spec In Lab Manish Benitez MD CHEMISTRY ORDERABL ES Performing Organization Address [facility] Co de Phone Number [facility] [place] [address] * EKG 12 Lead (08/29/2019 4:19 PM EDT) Ventricular rate 67 BPM MUSE SYSTEM Atrial Rate 67 BPM MUSE SYSTEM P-R Interval 164 ms MUSE SYSTEM QRS Duration 80 ms MUSE SYSTEM Q-T Interval 478 ms MUSE SYSTEM QTC Calculated (Bezet) 505 ms MUSE SYSTEM Calculated P [place] 34 degrees MUSE SYSTEM Calculated R [place] 30 degrees MUSE SYSTEM Calculated T [place] -29 degrees MUSE SYSTEM INTERPRETATION Demand pacemaker; [...] [facility]ICAL [facility] Lymphocytes % 22.7 % [facility] Lymphocytes Abs 1.5 0.9 - 3.2 x10(3)/[facility] Monocytes % 10.3 % [facility] Monocyte Abs 0.7 0.3 - 0.9 x10(3)/ L [facility] Eosinophils % 7.8 % [facility] Eosinophils Abs 0.5(H) 0.0 - 0.4 x10(3)/mc L [facility] Basophils % 0.6 % [facility] [place] [address] * (ABNORMAL) Hemogram (08/29/2019 3:10 PM EDT) WBC 6.5 4.0 - 9.5 x10(3)/[facility] RBC 4.69 4.00 - 5.21 x10(6)/[facility] Hemoglobin 14.1 11.7 - 15.5 gm/dL [facility] Hematocrit 43.8 35.7 - 45.8 % [facility] MCV 93.4 82.6 - 94.4 [facility] MCH 30.1 27.1 - 32.0 pg [facility] MCHC 32.2 31.7 - 35.0 gm/dL [facility] Platelets 235 145 - 357 x10(3)/[facility] RDWSD 47.2(H) 37.0 - 46.0 [facility] RDWCV 13.7 11.5 - 14.1 % [facility] MPV 11.5 7.6 - 12.9 [facility] nRBC % Auto 0.0 % [facility] nRBC Abs Auto 0.000 0.000 - 0.000 x10(3)/[facility] Blood specimen (specimen) 08/29/2019 3:10 PM EDT 08/29/2019 3:50 PM EDT Narrative Resulting Agency Comment Spec In Lab [place] SANDRA HEMATOLOGY ORDERABLE S Performing Organization Address City/[facility]/ZIP Co de Phone Number [facility] [place] [address] * Hepatic Function Panel (08/29/2019 3:10 PM EDT) [facility] Total Protein 7.1 6.1 - 8.0 [...] CHEMISTRY ORDERABL ES Performing Organization Address [facility] Co de Phone Number [facility] [place] [address] * TSH (08/29/2019 3:10 PM EDT) [facility] TSH 1.87 0.27 - 4.20 mcIU/mL [facility] Blood specimen (specimen) 08/29/2019 3:10 PM EDT 08/29/2019 3:52 PM EDT Narrative Resulting Agency Comment Spec In Lab Manish Benitez MD CHEMISTRY ORDERABL ES Performing Organization Address City/[facility]/ZIP Co de Phone Number [facility] [place] [address] * (ABNORMAL) pro-Brain Natriuretic Peptide (08/29/2019 3:10 PM EDT) [facility] ProBNP 1,242(H) <=125 pg/mL [facility] Blood specimen (specimen) 08/29/2019 3:10 PM EDT 08/29/2019 3:52 PM EDT Narrative Resulting Agency Comment Spec In Lab Manish Benitez MD CHEMISTRY ORDERABL ES Performing Organization Address [facility]/ZIP Co de Phone Number [facility] [place] [address] * CK (08/29/2019 3:10 PM EDT) [facility] CK, Total 96 0 - 160 unit/L [facility] Blood specimen (specimen) 08/29/2019 3:10 PM EDT 08/29/2019 3:52 PM EDT Narrative Resulting Agency Comment Spec In Lab Manish Benitez MD CHEMISTRY ORDERABL ES Performing Organization Address [facility] Co de Phone Number [facility] [place] [address] * Troponin (08/29/2019 3:10 PM EDT) [facility] Troponin-T <0.01 0.00 - 0.00 ng/mL [...] meets the diagnosis for a myocardial infarction (MN). Detection of a rise and/or fall of cTnT, with at least one value greater than the 99th percentile (> or = 0.01) and with at least one of the following ?? Symptoms of ischemia ?? New or presumed new significant BL-bqjotxz-Q wave (ST-T) changes or new left bundle [...] additional sample may be indicated. Reference: Third [place] Definition of Myocardial Infarction. Journal of the [place] [employer] 2012;60:1581-98 Blood specimen (specimen) 08/29/2019 3:10 PM EDT 08/29/2019 3:52 PM EDT Narrative Resulting Agency Comment Spec In Lab Manish Benitez MD CHEMISTRY ORDERABL ES Performing Organization Address [facility] de Phone Number [facility] [place] [address] * (ABNORMAL) APTT (08/29/2019 3:10 PM EDT) [...] MD HEMATOLOGY ORDERAB LES Performing Organization Address [facility] Co de Phone Number [facility] [place] [address] * (ABNORMAL) Prothrombin Time (08/29/2019 3:10 PM EDT) PT 13.3(H) 9.4 - 12.5 sec [facility] INR 1.2 [facility] Comment: An INR <2.0 indicates [...] [facility] [place] [address] * (ABNORMAL) Basic Metabolic Panel (non-fasting) (08/29/2019 [...] of body mass or the acutely ill. [email or web address] eGFR 94 >=60 mL/min/1. 73 m?? [facility] Comment: The eGFR was calculated using the CKD-EPI equation. As with all creatinine based estimates of kidney function, eGFR values calculated with the CKD-EPI equation are not accurate in patients with acute kidney failure, extremes of body mass or the acutely ill. [email or web address] Blood specimen (specimen) 08/29/2019 3:10 PM EDT 08/29/2019 3:52 PM EDT Narrative Resulting Agency Comment Spec In Lab Manish Benitez MD CHEMISTRY ORDERABL ES [facility] [place] [address] documented in this encounter Visit Diagnoses Not [...] (Given - Provider: Mark Nick RN) 1357 ([facility] Hold - Provider: Admin Adt - Reason: Transfer to a Procedural area)1530 ([facility] Unhold - Provider: Admin Adt) clopidogreL (Plavix) tablet 75 mg (CANCELED) 75 mg, Oral, DAILY, First dose on Wed08/30/19 at 0900, Until Discontinued, Routine 0842 (Given - Provider: Mark Nick RN)1357 ([facility] Hold - Provider: Admin Adt - Reason: Transfer to a Procedural area)153 ([facility] Unhold - Provider: Admin Adt) DULoxetine DR (Cymbalta) capsule 60 mg 60 mg, Oral, NIGHTLY, First dose on Wed08/29/19 at 2100, Until Discontinued, Routine 2047 (Given - Provider: Efrain Verma RN) 1357 ([facility] Hold - Provider: Admin Adt - Reason: Transfer to a Procedural area)153 ([facility] Unhold - Provider: Admin Adt)2029 (Given - [...] 0842 (Given - Provider: Mark Nick RN)1357 ([facility] Hold - Provider: Admin Adt - Reason: Transfer to a Procedural area)153 ([facility] Unhold - Provider: Admin Adt)2029 (Given - [...] UA) documented in this encounter Care Teams Antique Clocks Repairer Relationship Specialty Start Date End Date Tim Rogers DNP PCP - General Family Medicine 08/28/19 06/08/21 documented as of this encounter
== END 2023-10-05 18:12 | disposition home or self-care (01) ==
PROVIDERS: Emergency Provider Nurse Practitioner Family; PCP Physician Assistant
DX: S93.402A Sprain of unspecified ligament of left ankle, initial encounter (principal); M25.472 Effusion, left ankle; I13.0 Hypertensive heart and chronic kidney disease with heart failure and stage 1 through stage 4 chronic kidney disease, or unspecified chronic kidney disease; N18.30 Chronic kidney disease, stage 3 unspecified; I50.9 Heart failure, unspecified; I25.2 Old myocardial infarction; I48.91 Unspecified atrial fibrillation; Z79.01 Long term (current) use of anticoagulants; X50.1XXA Overexertion from prolonged static or awkward postures, initial encounter; Y93.01 Activity, walking, marching and hiking; Y92.89 Other specified places as the place of occurrence of the external cause
CPT/HCPCS: 99283; 73610

== ENCOUNTER 2023-10-20 19:46 | Outpatient (REF) | payer BC, SELFPAY ==
[2023-10-20 19:29] LABS: Anion Gap 14.9 mmol/L (3-11); BUN 21 mg/dL (7-18); CO2 21.1 mmol/L (21.0-32.0); CREATININE 1.3 mg/dL (0.55-1.02); Chloride 105 mmol/L (98-107); Estimated GFR 48.87 (mL/min/1.73m2); Glucose 92 mg/dL (74-106); Potassium 4.3 mmol/L (3.5-5.1); Sodium 141 mmol/L (136-145)
--- OUTSIDE RECORDS SUMMARY | 2023-10-20 19:49 | XMS_ITS | Referral Summary ---
Author Organization [facility] Address [address] [place] [id number] Care Team Providers Care Cnc Wood Lathe Operator Name Role Phone Unknown, Provider Primary [...] C Antibody Negative Negative 05/20/2020 11:15 EDT [facility] Blood VENOUS BLOOD / Unknown 05/17/2020 14:00 EST 05/19/2020 16:37 EDT Provider Outr Resulting Lab CHEMISTRY & BLOOD GAS ORDERABLES [facility] [address] [place] [address] from Last 3 Months or Most Recently Relevant to Health Maintenance Care Teams Cnc Wood Lathe Operator Relationship Specialty Start Date End Date Unknown, Provider, PCP - General 01/28/10
--- OUTSIDE RECORDS SUMMARY | 2023-10-20 19:49 | XMS_ITS | Encounter Summary ---
Author Organization [facility] Address [address] [place] [address] Care Team Providers Care Waiter And Cashier Name Role Phone Unavailable Primary Care Provider Unavailabl e Encounter Details Date Type Department Care Team (Late st Contact Info) Description 05/15/1999 Results Only [facility] conversion [address] [place] [address] Channing Brand MD [address] [place] [address] Social History Tobacco Use Types [...] ? LOIDA ROQUE ? Accession #: ? [id number] ? : ? 1970 (Age: 29) ??F [...] Co de Phone Number [facility] [address] [place] [address] documented in this encounter Visit Diagnoses Not on filedocumented in this encounter
--- OUTSIDE RECORDS SUMMARY | 2023-10-20 19:49 | XMS_ITS | Encounter Summary ---
Author Organization [facility] Address [address] [place] [address] Care Team Providers Care Jacquard Card Cutter Name Role Phone Unknown, Provider Primary Care Provider Encounter Details Date Type Department Care Team (Late st Contact Info) Description 05/18/2020 Lab Requisition [facility] Pathology & Laboratory Medicine - [address] [address] Outr Resulting Lab, Provider Social History Tobacco [...] Negative Negative 05/20/2020 11:15 EDT [facility] Blood VENOUS BLOOD / Unknown 05/17/2020 14:00 EST 05/19/2020 16:37 EDT Provider Outr Resulting Lab CHEMISTRY & BLOOD GAS ORDERABLES [facility] [address] [place] [address] * CELIAC DISEASE PANEL (05/17/2020 14:00 EST) Tissue Transglutaminase Antibody IGA <1.2 <4.0 U/mL 05/20/2020 13:21 EDT [facility] Comment: A negative result may be due to IgA deficiency and does not rule out celiac disease. ? Negative: ??<4.0 U/mL ? Weak Positive: ??4.0 - 10.0 U/mL ? Positive: ??>10.0 U/mL Results were obtained with the MavenlinkA Lite R h-tTG IgA VAIBHAV assay on the [employer]. IgA 283 85 - 499 mg/dL 05/20/2020 13:21 EDT [facility] Celiac Disease Interpretation Negative Serology. Celiac disease unlikely. Approximately 10% of patients with celiac disease are seronegative. Patients who are already adhering to a gluten-free diet may also be seronegative. If celiac disease is highly clinically suspected, referral to gastroenterology for additional evaluation is recommended. 05/20/2020 13:21 EDT [facility] Blood VENOUS BLOOD / Unknown 05/17/2020 14:00 EST 05/19/2020 16:27 EDT Provider Outr Resulting Lab IMMUNOLOGY A ND SEROLOGY ORDERABLES Performing Organization Address City/State/[facility] Co de Phone Number [facility] [address] [place] [address] documented in this encounter Visit Diagnoses Not on filedocumented in this encounter Care Teams Jacquard Card Cutter Relationship Specialty Start Date End Date Unknown, Provider, PCP - General 01/28/10 documented as of this encounter
--- OUTSIDE RECORDS SUMMARY | 2023-10-20 19:49 | XMS_ITS | Encounter Summary ---
Author Organization [facility] Address [address] [place] [address] Care Team Providers Care Safety Investigator/Cause Analyst Name Role Phone Unknown, Provider Primary Care Provider Encounter Details Date Type Department Care Team (Late st Contact Info) Description 07/29/2022 Lab Requisition [facility] Pathology & Laboratory Medicine - [address] [address] Outr Resulting Lab, Provider Social History Tobacco [...] 64 - 147 % 08/05/2022 11:55 EDT [facility] Comment: a.Acquired Protein S deficiencies [...] HEMATOLOGY & PF4 ORDERABLES Performing Organization Address [facility] Co de Phone Number [facility] [address] [place] [address] * PROTEIN C ACTIVITY (07/29/2022 9:25 EDT) Protein C Clot 132 71 - 199 % 08/05/2022 11:55 EDT [facility] Comment: a. Acquired Protein C [...] & PF4 ORDERABLES Performing Organization Address City/[facility]/ZIP Co de Phone Number [facility] [address] [place] [address] documented in this encounter Visit Diagnoses Not on filedocumented in this encounter Care Teams Safety Investigator/Cause Analyst Relationship Specialty Start Date End Date Unknown, Provider, PCP - General 01/28/10 documented as of this encounter
--- OUTSIDE RECORDS SUMMARY | 2023-10-20 19:49 | XMS_ITS | Encounter Summary ---
Author Organization [facility] Address [address] [place] [address] Care Team Providers Care Content Editor Name Role Phone Unavailable Primary Care Provider Unavailabl e Encounter Details Date Type Department Care Team (Late st Contact Info) Description 01/02/2000 Results Only [facility] conversion [address] [place] [address] Channing Brand MD [address] [place] [address] Social History Tobacco Use Types [...] ? LOIDA ROQUE ? Accession #: ? [id number] : ? 1970 (Age: 29) ??F ?Collect [...] Brand MD PATHOLOGY ORDERABLES [facility] [address] [place] [address] documented in this encounter Visit Diagnoses Not on filedocumented in this encounter
--- OUTSIDE RECORDS SUMMARY | 2023-10-20 19:49 | XMS_ITS | Encounter Summary ---
Author Organization [facility] Address [address] [place] [address] Care Team Providers Care Professor Of Environmental Engineering Name Role Phone Unknown, Provider Primary Care Provider Encounter Details Date Type Department Care Team (Late st Contact Info) Description 01/07/2021 Lab Requisition [facility] Pathology & Laboratory Medicine - [address] [address] Outr Resulting Lab, Provider Social History Tobacco [...] Priority Date/Time Associated Diagnosis Comments [facility] Today 01/06/2021 14:00 EDT COVID-19 TESTING Routine 01/06/2021 14:0 0 EDT documented in this encounter Results * COVID-19 TEST [facility] LAB PCR (01/06/2021 14:00 EDT) Swab ENTIRE NASOPHARYNX / Unknown 01/06/2021 14:00 EDT 01/07/2021 17:19 EDT Provider Outr Resulting Lab MICROBIOLOGY - GENERAL ORDERABLES [facility] [address] [place] [address] * COVID-19 TESTING (01/06/2021 14:00 EDT) COVID-19 rt-PCR Result Negative Negative 01/08/2021 12:[address] [facility] Comment: This test has [...] was performed using the ric SARS-CoV-2 assay ([employer] on the Ric 6800 System Performing Lab Ric [address] [facility] Lab 01/08/2021 12:[address] [facility] Swab 01/06/2021 14:0 0 EDT 01/07/2021 17:19 EDT Provider Outr Resulting Lab MICROBIOLOGY - GENERAL ORDERABLES Performing Organization Address City/State/[facility] Co de Phone Number [facility] [address] [place] [address] documented in this encounter Visit Diagnoses Not on filedocumented in this encounter Care Teams Professor Of Environmental Engineering Relationship Specialty Start Date End Date Unknown, Provider, PCP - General 01/28/10 documented as of this encounter
--- OUTSIDE RECORDS SUMMARY | 2023-10-20 19:49 | XMS_ITS | Encounter Summary ---
Author Organization [facility] Address [address] [place] [address] Care Team Providers Care Sales Development Manager Name Role Phone Unknown, Provider Primary Care Provider [phone] Encounter Details Date Type Department Care Team (Late st Contact Info) Description 09/06/2020 Lab Requisition [facility] Pathology & Laboratory Medicine - [address] [address] Outr Resulting Lab, Provider Social History Tobacco [...] Outr Resulting Lab MICROBIOLOGY - GENERAL ORDERABLES [facility] [address] [place] [address] * COVID-19 TESTING (09/05/2020 14:00 EDT) COVID-19 rt-PCR Result Negative Negative 09/07/2020 14:05 EDT [facility] Comment: This test [...] developed and its performance characteristics determined by [facility]. It has not been cleared or approved [...] testing. This test is based on the [facility] COVID-19 Emergency Use Authorization (EUA) assay, with minor modification as defined by the FDA Performed on the ProviderTrust[employer] 7 Flex RT-PCR System. Performing Lab [facility] Lab 09/07/2020 14:05 EDT [facility] Swab 09/05/2020 14:0 0 EDT 09/06/2020 16:13 EDT Provider Outr Resulting Lab MICROBIOLOGY - GENERAL ORDERABLES [facility] [address] [place] [address] documented in this encounter Visit Diagnoses Not on filedocumented in this encounter Care Teams Sales Development Manager Relationship Specialty Start Date End Date Unknown, Provider, PCP - General 01/28/10 documented as of this encounter
--- OUTSIDE RECORDS SUMMARY | 2023-10-20 19:49 | XMS_ITS | Encounter Summary ---
Author Organization [facility] Address [address] [place] [address] Care Team Providers Care Occupational Health Nurse Supervisor Name Role Phone Unknown, Provider Primary Care Provider Encounter Details Date Type Department Care Team (Late st Contact Info) Description 07/27/2022 Lab Requisition [facility] Pathology & Laboratory Medicine - [facility] [address] [place] [address] Outr Resulting Lab, Provider Social History Tobacco [...] Lyme Ab Negative Negative 07/28/2022 10:37 EDT [facility] Blood VENOUS BLOOD / Unknown 07/27/2022 10:39 EDT 07/27/2022 16:45 EDT Provider Outr Resulting Lab IMMUNOLOGY A ND SEROLOGY ORDERABLES [facility] [address] [place] [address] documented in this encounter Visit Diagnoses Not on filedocumented in this encounter Care Teams Occupational Health Nurse Supervisor Relationship Specialty Start Date End Date Unknown, ProviderMD PCP - General 01/28/10 documented as of this encounter
--- OUTSIDE RECORDS SUMMARY | 2023-10-20 19:49 | XMS_ITS | Clinical Summary ---
Author Organization [facility] Address [address] [place] [address] Care Team Providers Care Secretary Of State Name Role Phone Unknown, Provider Primary Care Provider [phone] Social History Tobacco Use Types Packs/Day Years [...] C Antibody Negative Negative 05/20/2020 11:15 EDT [facility] Blood VENOUS BLOOD / Unknown 05/17/2020 14:00 EST 05/19/2020 16:37 EDT Provider Outr Resulting Lab CHEMISTRY & BLOOD GAS ORDERABLES [facility] [address] [place] [address] from Last 3 Months or Most Recently Relevant to Health Maintenance Care Teams Secretary Of State Relationship Specialty Start Date End Date Unknown, Provider, PCP - General 01/28/10
--- OUTSIDE RECORDS SUMMARY | 2023-10-20 19:49 | XMS_ITS | Encounter Summary ---
Author Organization [facility] Address [address] [place] [address] Care Team Providers Care Printing Press Machinist Name Role Phone Unknown, Provider Primary Care Provider [phone] Encounter Details Date Type Department Care Team (Late st Contact Info) Description 08/28/2019 Lab Requisition [facility] Pathology & Laboratory Medicine - [address] [address] Outr Resulting Lab, Provider Social History Tobacco [...] Outr Resulting Lab MICROBIOLOGY - GENERAL ORDERABLES [facility] [address] [place] [address] * COVID-19 TESTING (08/28/2019 21:50 EDT) COVID-19 rt-PCR Result Negative Negative 08/29/2019 12:31 EDT [facility] Comment: This test has [...] history, and epidemiological information. Performed on the Senstoreher Fusion instrument Performing Lab [place] [facility] 08/29/2019 12:31 EDT [facility] Swab 08/28/2019 21:5 0 EDT 08/29/2019 8:30 EDT Provider Outr Resulting Lab MICROBIOLOGY - GENERAL ORDERABLES [facility] [address] [place] [address] documented in this encounter Visit Diagnoses Not on filedocumented in this encounter Care Teams Printing Press Machinist Relationship Specialty Start Date End Date Unknown, Provider, PCP - General 01/28/10 documented as of this encounter
--- OUTSIDE RECORDS SUMMARY | 2023-10-20 19:49 | XMS_ITS | Encounter Summary ---
Author Organization [facility] Address [address] [place] [address] Care Team Providers Care Senior Linux Systems Engineer Name Role Phone Unavailable Primary Care Provider Unavailabl e Encounter Details Date Type Department Care Team (Late st Contact Info) Description 01/23/2010 Results Only [facility] Laboratory Services - [facility] ([facility]) [address] [place], [place] [id number] Kylee Vaca MD [address] [place] [address] Social History Tobacco Use Types [...] ? ROHAN, LOIDA ? Accession #: ? [id number] ? : ? 1970 (Age: 39) ??F ? Collect Date: ? 01/23/2010 ? Location: ? [facility] ? Receive Date: ? 01/24/2010 ? Provider: KYLEE VACA MD ? Copy to: DARWIN LEMON CHANNEL MANAGER ? Final Pathologic Diagnosis: ? Skin of [...] MD PATHOLOGY ORDERABLES [facility] [address] [place] [address] documented in this encounter Visit Diagnoses Not on filedocumented in this encounter
--- OUTSIDE RECORDS SUMMARY | 2023-10-20 19:49 | XMS_ITS | Encounter Summary ---
Author Organization [facility] Address [address] [place] [address] Care Team Providers Care Certified Medical Aide Name Role Phone Unknown, Provider Primary Care Provider [phone] Encounter Details Date Type Department Care Team (Late st Contact Info) Description 05/18/2020 Lab Requisition [facility] Pathology & Laboratory Medicine - [address] [address] Outr Resulting Lab, Provider Social History Tobacco [...] 4th Generation Negative Negative 05/20/2020 11:35 EDT [facility] Comment: If acute HIV-1 infection is suspected in a high risk ??patient, submit plasma specimen for HIV-1 RNA quantitation test. Fourth Generation assay performed on the Siemens [employer]. Blood VENOUS BLOOD / Unknown 05/17/2020 14:00 EST 05/19/2020 16:27 EDT Provider Outr Resulting Lab IMMUNOLOGY A ND SEROLOGY ORDERABLES [facility] [address] [place] [address] documented in this encounter Visit Diagnoses Not on filedocumented in this encounter Care Teams Certified Medical Aide Relationship Specialty Start Date End Date Unknown, Provider, PCP - General 01/28/10 documented as of this encounter
--- OUTSIDE RECORDS SUMMARY | 2023-10-20 19:49 | XMS_ITS | Encounter Summary ---
Author Organization [facility] Address [address] [place] [address] Care Team Providers Care Grain Packer Name Role Phone Unknown, Provider Primary Care Provider Encounter Details Date Type Department Care Team (Late st Contact Info) Description 09/16/2020 Lab Requisition [facility] Pathology & Laboratory Medicine - [address] [address] Outr Resulting Lab, Provider Social History Tobacco [...] IgE 13 <158 IU/mL 09/18/2020 8:45 EDT [facility] Blood VENOUS BLOOD / Unknown 09/16/2020 13:43 EDT 09/16/2020 20:51 EDT Provider Outr Resulting Lab CHEMISTRY & BLOOD GAS ORDERABLES [facility] [address] [place] [address] * EXTRACTABLE NUCLEAR ANTIGEN PANEL (09/16/2020 13:43 EDT) SSA Antibody 1.2 <20.0 Units 09/17/2020 15:28 EDT [facility] Comment: ? Negative: <20.0 Units ? Weak Positive: 20.0 - 39.9 Units ? Moderate Positive: 40.0 - 80.0 Units ? Strong Positive: >80.0 Units Results were obtained with the [employer] QUANTA Lite SS-A VAIBHAV. ??SS-A values obtained with different manufacturers' assay methods may not be used interchangeably. ??The magnitude of the reported IgG levels cannot be correlated to an endpoint titer. SSB Antibody 4.9 <20.0 Units 09/17/2020 15:28 [facility] Comment: ? Negative: <20.0 Units ? Weak Positive: 20.0 - 39.9 Units ? Moderate Positive: 40.0 - 80.0 Units ? Strong Positive: >80.0 Units Results were obtained with the [employer] QUANTA Lite SS-B VAIBHAV. ??SS-B values obtained with different manufacturers' assay methods may not be used interchangeably. ??The magnitude of the reported IgG levels cannot be correlated to an endpoint titer. SM (Alcantar) Antibody 3.4 <20.0 Units 09/17/2020 15:28 [facility] Comment: ? Negative: <20.0 Units ? Weak Positive: 20.0 - 39.9 Units ? Moderate Positive: 40.0 - 80.0 Units ? Strong Positive: >80.0 Units Results were obtained with the codet[employer]VA QUANTA Lite Sm VAIBHAV. ??Sm values obtained with different manufacturers' assay methods may not be used interchangeably. ??The magnitude of the reported IgG levels cannot be correlated to an endpoint titer. STONE GANG SAWYER Antibody 1.5 <20.0 Units 09/17/2020 15:28 EDT [facility] Comment: ? Negative: <20.0 Units ? Weak Positive: 20.0 - 39.9 Units ? Moderate Positive: 40.0 - 80.0 Units ? Strong Positive: >80.0 Units Results were obtained with the [employer] Quanta Lite STONE GANG SAWYER VAIBHAV. STONE GANG SAWYER values obtained with different other sales support worker's assay methods may not be used interchangeaby. ??The magnitude of the reported IgG levels cannot be be correlated to an endpoint titer. A positive result in the Quanta Lite STONE GANG SAWYER VAIBHAV indicates the presence of antibodies reactive with the STONE GANG SAWYER/Sm complex but cannot distinguish between anti-Sm and anti-STONE GANG SAWYER activity. Blood VENOUS BLOOD / Unknown 09/16/2020 13:43 EDT 09/16/2020 20:51 EDT Provider Outr Resulting Lab IMMUNOLOGY A ND SEROLOGY ORDERABLES Performing Organization Address City/State/[facility] Co de Phone Number [facility] [address] [place] [address] * (ABNORMAL) ANTI NUCLEAR AB (KATHRINE), IFA (09/16/2020 13:43 EDT) KATHRINE Interpretation Positive(A) Negative 09/17/2020 15:08 EDT [facility] Comment: For titers greater [...] Pattern 1 1:160 Speckled 09/17/2020 15:08 EDT [facility] Blood VENOUS BLOOD / Unknown 09/16/2020 13:43 EDT 09/16/2020 20:51 EDT Narrative [facility] - 09/17/2020 15:08 EDT Results were obtained with the [employer] NOVA Lite HEp-2 KATHRINE Kit by indirect immunofluorescence. Provider Outr Resulting Lab IMMUNOLOGY A ND SEROLOGY ORDERABLES [facility] [address] [place] [address] documented in this encounter Visit Diagnoses Not on filedocumented in this encounter Care Teams Grain Packer Relationship Specialty Start Date End Date Unknown, Provider, PCP - General 01/28/10 documented as of this encounter
--- OUTSIDE RECORDS SUMMARY | 2023-10-20 19:49 | XMS_ITS | Encounter Summary ---
Author Organization [facility] Address [address] [place] [address] Care Team Providers Care Dietary Supervisor Name Role Phone Unavailable Primary Care Provider Unavailabl e Encounter Details Date Type Department Care Team (Late st Contact Info) Description 01/19/2000 Results Only [facility] conversion [address] [place] [address] Channing Brand MD [address] [place] [address] Social History Tobacco Use Types [...] ? LOIDA ROQUE ? Accession #: ? [id number] ? : ? 1970 (Age: 29) ??F [...] reviewed and electronically signed by: Gerald Nino [facility] Report ??Date: 01/22/2000 16:44 By the [...] a discernible squamocolumnar junction. BLOCK RHODES B1,B2 ?Daycare Manager section of anterior endomyometrium B3 ?Possible myomatous nodule from the anterior half of the specimen B4 ?Daycare Manager section of posterior endomyometrium B5 ?Daycare Manager section of posterior endo- and ectocervix B6 ?Anterior endo- and ectocervix (Dr. Garcia)/[facility] End of Report [facility] 01/19/2000 01/20/2000 14: 59 EST Channing Brand MD PATHOLOGY ORDERABLES [facility] [address] [place] [address] documented in this encounter Visit Diagnoses Not on filedocumented in this encounter
--- OUTSIDE RECORDS SUMMARY | 2023-10-20 19:50 | XMS_ITS | Encounter Summary ---
Author Organization [facility] [place] [address] Care Team Providers Care Roller Cleaner Name Role Phone Polo Pearce Primary Care Provider [phone] Reason for Referral * Diagnostic Test (Routine) - New Request Specialty Diagnoses / Procedures Referred By Jayant harris Referred To Contact Diagnoses Mesenteric ischemia Procedures Duplex Study Visceral Arteries, Comp Thiago Way MD [facility] [place] [address] [facility] [address] [place] [phone] Referral ID Status Reason Start Date Expiration Date Visits Requested Visits Authorized [id number] New Request Specialty Service Requested 10/08/2023 10/07/2024 1 1 Encounter Details Date Type Department Care Team (Late st Contact Info) Description 10/08/2023 9:30 AM EDT Office [place] [address] MD [facility] [place] [address] Mesenteric ischemia (Primary Dx) Social History Tobacco Use Types [...] a senior living (including now)? No 06/15/2023 Housing Stability Vital Sign Answer Mitchell e Recorded In the last 12 months, was t here a time when you were not able to pay the mortgage or rent on time? No 08/30/2023 In the past 12 months, how m any times have you moved where you were living? 1 08/30/2023 At any time in the past 12 m [facility], were you homeless or living in a senior living (including now)? No 08/30/2023 DH IPV Inpatient [...] Sign Reading Time Taken Comments Blood Pressure 114/66 10/08/2023 9:19 AM EDT Pulse 56 10/08/2023 9:19 AM EDT Temperature - - Respiratory Rate - - Oxygen Saturation 97% 10/08/2023 9:19 AM EDT Inhaled Oxygen Concentration - - Weight 101.6 kg (224 lb) 10/08/2023 9:19 AM EDT reported Height 162.6 cm (5' 4) 10/08/2023 9:19 AM EDT r eported Body Mass Index 38.45 10/08/2023 9:19 AM EDT documented in this encounter Progress Notes * Thiago Way MD - 10/08/2023 9:30 AM EDT OUTPATIENT VASCULAR SURGERY CONSULTATION Reason for Visit: 07/02/23 SMA stent History of Present Illness: Loida Roque is a 53 y.o. female with a history of chronic abdominal pain, bloating who underwent an SMA stent with mn back in July 01. Upon returning today she reports that overall her abdominal pain is improved. She no longer has food fear and gets pain after eating. She does still have bloating, constipation, and occasionally blood in her stool. She is on Eliquis for previous blood clot she is not on any antiplatelet. Atherosclerotic Risk Factors: (n) DM (n) HTN (y) CAD (n) CHF (y) Hyperlipidemia (n) CVA reports that she has never smoked. She has never used smokeless tobacco. Patient Active Problem List Diagnosis Code Asthma [...] R20.2 NSTEMI (non-ST elevated myocardial infarction) I21.4 Current Outpatient Medications: metoproloL tartrate (Lopressor) 25 mg tablet, Take 1 tablet by mouth 2 times daily., Disp: 180 tablet, Rfl: 3 potassium chloride ER (Klor-Con M) 20 mEq ER micro-encapsulated crystal tablet, Take 2 tablets by mouth daily for 30 days., Disp: 60 tablet, Rfl: 0 omeprazole (PriLOSEC) [address] capsule, Take 1 capsule by mouth daily., Disp: 30 capsule, Rfl: 5 ranolazine ER (Ranexa) 1,000 mg ER 12 [...] of torsemide)., Disp: 30 tablet, Rfl: 0 nitroGLYcerin (Nitrostat) 0.4 mg sublingual tablet, Place 1 tablet under the tongue every 5 minutesas needed for Chest pain., Disp: 90 tablet, Rfl: 12 apixaban (Eliquis) 5 mg tablet, Take 1 tablet by mouth 2 times daily., Disp: 60 tablet, Rfl: 11 spironolactone (Aldactone) 25 mg tablet, Take 1 tablet by mouth daily., Disp: 90 tablet, Rfl: 3 melatonin 10 mg capsule, Take 10 mg by mouth nightly as needed., Disp: , Rfl: empagliflozin (Jardiance) 10 mg Tablet, Take 1 tablet by mouth daily., Disp: 90 tablet, Rfl: 1 rOPINIRole (Requip) 1 mg Tablet, Take 2 mg by mouth 2 times daily., Disp: , Rfl: loratadine (Claritin) 10 mg Tablet, Take 10 mg by mouth daily as needed., Disp: , Rfl: fluticasone propionate (FLONASE) 50 mcg/actuation [place], Suspension, 1 spray by Each Nare route [...] needed. Use with spacer, Disp: , Rfl: rimegepant (Nurtec ODT) 75 mg disintegrating tablet, Take 75 mg by mouth daily as needed., Disp: , Rfl: Allergies Allergen Reactions Codeine Other (See Comments) Per pt it causes severe jittery and uncomfortable feeling Acetaminophen Other (See Comments) Makes her jittery, feel weird and cause swelling in upper/lower extremities Clobetasol Rash Other reaction(s): Skin Rash Physical Exam: There were no vitals taken for this visit. General - NAD, appears stated age Neuro - Alert and Oriented, Motor Sensory grossly intact Skin - No prominent markings or lesions Ear, Nose, Throat - No masses, No lesions Cardiac - RRR, no murmurs Lungs - Clear Abd - Soft, NT, ND, No palpable pulsatile masses Musculoskeletal- full ROM upper and lower extremities Psych- alert oriented X3 Extremities - Warm, pink, no edema, brisk capillary refill Labs: Recent Results (from the past 72 hour(s)) Duplex Study Visceral Arteries, Comp Result Value Ref Range VB Text Report Department: Vascular Surgery Lab Patient: [id number] (ROHAN, MELINDA) CPT: 58134 Referring Physician: HARJEET PICKENS Phone: Indications: s/p SMA stenting 06/29/23 Findings: Unilateral Waveform PSV cm/s EDV cm/s Dary Renal Aorta 71 13 Celiac Artery, Proximal Biphasic 104 19 Celiac Artery, Mid Biphasic 99 9 Celiac Artery, Distal Biphasic 88 17 Sup Mes Artery Proximal Bi-Triphasic 289 31 Sup Mes Artery Middle Triphasic 111 0 Sup Mes Artery Distal Triphasic 76 0 Hepatic Artery Bi-Triphasic 81 17 Splenic Artery Biphasic 87 22 Inf Mes Artery Bi-Triphasic 80 0 Interpretation: Patent stented superior mesenteric artery with a PSV of 289 cm/s which is just below the threshold for a > 50% stenosis. Slight decrease in PSV compared to previous exam (316 cms/). Patent celiac, common hepatic, splenic and inferior mesenteric artery with no evidence of hemodynamically significant stenosis. No identifiable change when compared to the previous exams. Comment: Velocity threshold interpretation within mesenteric artery stents may differ from cherokee arteries, with thresholds for diagnosis of significant stenosis likely being somewhat higher in stented arteries than cherokee.% To date, there is no evidence based consensus of stent velocity criteria. Therefore, the current interpretation is based on cherokee artery thresholds. Previous Celiac/Mesenteric Studies: Date SMA PSV EDV Celiac PSV EDV 427 91 441 23 2873/04/29 289 27 607 76 6449/05/28 316 39 100 22 Current Exam 289 31 104 19 VB Text Report End of Report Studies: Assessment and Plan: 53 y.o. female s/p SMA stent for chronic mesenteric ischemia. Very encouraged on follow-up today hearing the patient has improved eating and quality of life after the stent. Encouraged her to continue her Eliquis but would like her to start a baby aspirin as she tolerates it for antiplatelet. I did my best to answer all of her questions and have her follow- up in 1 year with arepeat duplex ultrasound. documented in this encounter Plan of Treatment Upcoming Encounters Date Type Department Care Team (Late st Contact Info) Description 10/21/2023 10:30 AM EDT Hospital Encounter [place] [address] [place] [address] 10/21/2023 11:30 AM EDT Appointment [place] [address] [address] [place] [address] 10/21/2023 12:30 PM EDT Appointment [place] [address] [place] [address] 10/21/2023 1:30 PM EDT Appointment [place] [address] [place] [address] 10/21/2023 2:30 PM EDT Appointment [place] [phone] Mary Reyes, [place] [address] 10/26/2023 4:00 PM EDT Office Visit Cardiology at [address] [phone] Jaspreet Kinsey MD [facility] [place] [address] 10/28/2023 9:00 AM EDT Office [place] [address] 10/29/2023 10:00 AM EDT Clinical [place] [address] 10/29/2023 10:15 AM EDT Procedure [place] [address] 11/01/2023 5:00 PM EDT Office [place] [phone] Selene Browning, PhD [facility] DR PSYCHI[place]RY [place] [address] 11/22/2023 4:40 PM EDT Office Visit Cardiology at [address] [phone] Porsha Mcdaniels MD [facility] [place] [address] 12/13/2023 10:00 AM EDT Clinical [place] [phone] [facility] [place] [address] documented as of this encounter Visit Diagnoses Diagnosis Mesenteric ischemia- Primary Unspecified vascular insufficiency of intestine documented in this encounter Care Teams Roller Cleaner Relationship Specialty Start Date End Date Polo Pearce PA [address] [place] [address] PCP - General Internal Medicine 06/09/21 documented as of this encounter
--- OUTSIDE RECORDS SUMMARY | 2023-10-20 19:50 | XMS_ITS | Clinical Summary ---
Author Organization [facility] Address [facility] [place] [address] Care Team Providers Care Lead Application Architect Name Role Phone Polo Pearce Primary Care Provider [phone] Allergies Active Allergy Reactions Criticality Noted Date [...] spacer Active fluticasone propionate (FLONASE) 50 mcg/actuation [place], Suspension 1 spray by Each Nare route [...] times daily. 180 tablet 3 09/10/2023 Active Active Problems Problem Noted Date Diagnosed [...] 04/29/2020 Overview (07/26/2023): 05/2021: subacute, presented to [facility] with RUQ pain, weight gain, and progressive [...] sarcoid. Anterior scar pattern 06/2023: Admission at [facility] (AD[facility]). TTE with low-normal EF, though anterior [...] referral to the good Dr Mcdaniels of [facility] expertise IN the meantime, increase torsemide to [...] discharge summary and medication administration record from [facility] to see what was given to her [...] diagnosis of hypertension 06/07/2021 07/23/2021 Non-ST elevation [place] (NSTEMI) 08/29/2019 03/16/2022 Rhinitis, nonallergic, chronic 06/26/2010 07/30/2022 Encounters Date Type Department Care Team Description 10/08/2023 9:30 AM EDT Office Visit Vascular [place] [address] MD Mesenteric ischemia (Primary Dx) 10/08/2023 8:30 AM EDT Tech Visit Vascular Lab at [place] [phone] Channing Escobedo, JANUSZ Mesenteric ischemia 10/08/2023 Travel 09/20/2023 Telephone Cardiology [place] [phone] Vito Pearce MD 09/20/2023 External [place] [address] 08/28/2023 8:27 PM EDT - 09/10/2023 5:31 PM EDT Hospital Encounter Heart and Vascular Unit Level 3 Wing B at [place] [phone] Kia Angelo MD Etiwy, MD Min Washington Nayana, MD Callahan, Megan B, MD Campbell, MD Zuri Molina, Lloyd Gray MD Paresthesia of hand, bilateral; SVT (supraventricular tachycardia); Acute on chronic heart failure with preserved ejection fraction; Non-ST elevation myocardial infarction (NSTEMI); NSTEMI (non-ST elevated myocardial infarction); Heart failure with preserved ejection fraction, unspecified HF chronicity; Hypokalemia Discharge Disposition: Home 08/28/2023 1:05 PM EDT Ancillary Procedure [place] [phone] Jaspreet Kinsey MD 08/28/2023 Telephone Cardiology [place] [phone] Ciro Lovell MD 08/28/2023 External [place] [address] 08/25/2023 1:05 PM EDT Laboratory Appointment Lab 3L [place] [phone] Heart failure with preserved ejection fraction, unspecified HF chronicity; Chronic kidney disease, unspecified CKD stage; Altered bowel function; Depression, unspecified depression type 08/25/2023 12:55 PM EDT Laboratory Appointment Lab [place] [address] 08/25/2023 10:00 AM EDT Office Visit G[place] [address] Mary Reyes APRN Altered bowel function; Depression, unspecified depression type; Gastroesophageal reflux disease, unspecified whether esophagitis present; Esophageal dysphagia; Nausea without vomiting; Early satiety 08/25/2023 Travel 08/17/2023 11:53 AM EDT - 08/17/2023 11:59 PM EDT Hospital Encounter Non-Invasive [place] [address] Porsha Mcdaniels MD Chest pain, unspecified type Discharge Disposition: Home 08/17/2023 11:52 AM EDT Hospital Encounter [place] [address] Porsha Mcdaniels MD Chest pain, unspecified type Discharge Disposition: Home 08/17/2023 Travel 08/03/2023 9:30 AM EDT Office Visit Vascular [place] [address] Judith Butler APRN Mesenteric ischemia 08/03/2023 8:30 AM EDT Tech Visit [place] [address] Eladio Boyer Mesenteric ischemia 08/03/2023 Travel 07/29/2023 8:00 AM EDT Office Visit Cardiology at [address] [address] Porsha Mcdaniels MD Chest pain, unspecified type 07/29/2023 Travel 07/26/2023 3:20 PM EDT Office Visit Cardiology at [address] [address] Jaspreet Kinsey MD Heart failure with preserved ejection fraction, unspecified HF chronicity; Paroxysmal atrial fibrillation; SVT (supraventricular tachycardia); Chest pain, unspecified type 07/26/2023 Travel from Last 3 Months Family History Medical [...] th e electric, gas, oil, or water Posterous threatened to shut off services in your [...] in a jail (including now)? No 06/15/2023 Housing Stability Vital Sign Answer Mitchell e Recorded In the last 12 months, was t here a time when you were not able to pay the mortgage or rent on time? No 08/30/2023 In the past 12 months, how m any times have you moved where you were living? 1 08/30/2023 At any time in the past 12 m [facility], were you homeless or living in a jail (including now)? No 08/30/2023 IPV Inpatient Questions [...] Pulse 56 10/08/2023 9:19 AM EDT Temperature 37.1 ??C (98.8 ??F) 09/10/2023 12:09 PM E DT Respiratory Rate 18 09/10/2023 12:09 PM EDT Oxygen Saturation 97% 10/08/2023 9:19 AM EDT Inhaled Oxygen Concentration - - Weight 101.6 kg (224 lb) 10/08/2023 9:19 AM EDT reported Height 162.6 cm (5' 4) 10/08/2023 9:19 AM EDT r eported Body Mass Index 38.45 10/08/2023 9:19 AM EDT Plan of Treatment Upcoming Encounters Date Type Department Care Team (Late st Contact Info) Description 10/21/2023 10:30 AM EDT Hospital Encounter [place] [address] [place] [address] 10/21/2023 11:30 AM EDT Appointment [place] [address] [place] [address] 10/21/2023 12:30 PM EDT Appointment [place] [address] Mary Reyes APRN [facility] [place] [address] 10/21/2023 1:30 PM EDT Appointment [place] [address] [place] [address] 10/21/2023 2:30 PM EDT Appointment [place] [address] [place] [address] 10/26/2023 4:00 PM EDT Office Visit Cardiology at [address] [phone] Jaspreet Kinsey MD [facility] [place] [address] 10/28/2023 9:00 AM EDT Office [place] [address] 10/29/2023 10:00 AM EDT Clinical [place] [address] 10/29/2023 10:15 AM EDT Procedure [place] [address] 11/01/2023 5:00 PM EDT Office Visit G[place]ology [place] [phone] Selene Browning, PhD [facility] [place] [address] 11/22/2023 4:40 PM EDT Office Visit Cardiology at [address] [phone] Porsha Mcdaniels MD [facility] [place] [address] 12/13/2023 10:00 AM EDT Clinical Support G[place]ology [place] [phone] [facility] [place] [address] Health Maintenance Due Date Last Done Comments [...] history exists Medical Devices Implanted Type Area Can Labeler Device Identifier Shelf Expiration Date Model / Serial / Lot Stent Graft [id number] cm Il Viabahn Vbx [id number]) ([employer])-4/2 08/2023 Implanted:Qty : 1 on 07/02/[address] MD IMPLANTS [employer] - TEJALEsther AN [id number] / / [id number] Description:sma stent placem ent Procedures Procedure Name Priority Date/Time Associated Diagnosis Comments MESENTERIC COMPLETE Routine 10/08/2023 8 :22 AM EDT Mesenteric ischemia NON DH EXTERNAL RADIOLOGY EXAM Routine 09/20/2023 10:43 PM EDT NON DH EXTERNAL RADIOLOGY EXAM Routine 09/20/2023 10:42 PM EDT NON EXTERNAL RADIOLOGY EXAM Routine 09/20/2023 10:42 PM EDT ECG SCAN Routine 09/20/2023 4:51 PM EDT SCAN DOC: TELEMETRY STRIPS 09/10/2023 8:40 AM EDT SCAN DOC: TELEMETRY STRIPS 09/10/2023 7:11 AM EDT DIFFERENTIAL, AUTOMATED Routine 09/10/19 4:17 AM EDT HEMOGRAM Routine 09/10/2023 4:17 AM EDT CBC (WITH DIFF) Routine 09/10/2023 4:17 AM EDT BASIC METABOLIC PANEL Routine 09/10/2023 4:17 AM EDT MAGNESIUM Routine 09/10/2023 4:17 AM EDT SCAN DOC: TELEMETRY STRIPS 09/09/2023 7:32 PM EDT SCAN DOC: TELEMETRY STRIPS 09/09/2023 8:15 AM EDT SCAN DOC: TELEMETRY STRIPS 09/09/2023 7:24 AM EDT DIFFERENTIAL, AUTOMATED Routine 09/09/19 5:10 AM EDT HEMOGRAM Routine 09/09/2023 5:10 AM EDT CBC (WITH DIFF) Routine 09/09/2023 5:10 AM EDT BASIC METABOLIC PANEL Routine 09/09/2023 5:10 AM EDT MAGNESIUM Routine 09/09/2023 5:10 AM EDT SCAN DOC: TELEMETRY STRIPS 09/08/2023 [...] EDT HEMOGRAM Routine 09/08/2023 2:22 AM EDT CBC (WITH DIFF) Routine 09/08/2023 2:22 AM EDT BASIC METABOLIC PANEL Routine 09/08/2023 2:22 AM EDT MAGNESIUM Routine 09/08/2023 2:22 AM EDT SCAN DOC: [...] EDT HEMOGRAM Routine 09/07/2023 2:56 AM EDT CBC (WITH DIFF) Routine 09/07/2023 2:56 AM EDT BASIC METABOLIC PANEL Routine 09/07/2023 2:56 AM EDT MAGNESIUM Routine 09/07/2023 2:56 AM EDT SCAN DOC: TELEMETRY STRIPS 09/06/2023 11:05 PM EDT SCAN DOC: TELEMETRY STRIPS 09/06/2023 10:11 AM EDT SCAN DOC: TELEMETRY STRIPS 09/06/2023 8:29 AM EDT SCAN DOC: TELEMETRY STRIPS 09/06/2023 8:17 AM EDT DIFFERENTIAL, AUTOMATED Routine 09/06/19 24 2:44 AM EDT HEMOGRAM Routine 09/06/2023 2:44 AM EDT CBC (WITH DIFF) Routine 09/06/2023 2:44 AM EDT BASIC METABOLIC PANEL Routine 09/06/2023 2:44 AM EDT MAGNESIUM Routine 09/06/2023 2:44 AM EDT SCAN DOC: TELEMETRY STRIPS 09/05/2023 8:[address] ABDOMEN AND PELVIS W CONTRAST Routine 09/05/2023 4:25 PM EDT SCAN DOC: TELEMETRY STRIPS 09/05/2023 7:48 AM EDT SCAN DOC: TELEMETRY STRIPS 09/05/2023 7:34 AM EDT DIFFERENTIAL, AUTOMATED Routine 09/05/19 1:58 AM EDT HEMOGRAM Routine 09/05/2023 1:58 AM EDT MISCELLANEOUS LAB REQUEST Routine 09/05/2023 1:58 AM EDT IGG 4 Routine 09/05/2023 1:58 AM EDT CBC (WITH DIFF) Routine 09/05/2023 1:58 AM EDT BASIC METABOLIC PANEL Routine 09/05/2023 1:58 AM EDT MAGNESIUM Routine 09/05/2023 1:58 AM EDT SCAN DOC: TELEMETRY STRIPS 09/04/2023 7:58 PM EDT BASIC METABOLIC PANEL Routine 09/04/2023 2:11 PM EDT SCAN DOC: TELEMETRY STRIPS 09/04/2023 1:10 PM EDT SCAN DOC: TELEMETRY STRIPS 09/04/2023 11:11 AM EDT SCAN DOC: TELEMETRY STRIPS 09/04/2023 9:41 AM EDT POTASSIUM Routine 09/04/2023 9:13 AM EDT POTASSIUM Routine 09/04/2023 4:25 AM EDT DIFFERENTIAL, AUTOMATED Routine 09/04/19 3:03 AM EDT HEMOGRAM Routine 09/04/2023 3:03 AM EDT CBC (WITH DIFF) Routine 09/04/2023 3:03 AM EDT BASIC METABOLIC PANEL Routine 09/04/2023 3:03 AM EDT MAGNESIUM Routine 09/04/2023 3:03 AM EDT SCAN DOC: [...] PROT. ELECTROPHORESIS Routine 09/03/2023 2:39 AM EDT CBC (WITH DIFF) Routine 09/03/2023 2:39 AM EDT BASIC METABOLIC PANEL Routine 09/03/2023 2:39 AM EDT MAGNESIUM Routine 09/03/2023 2:39 AM EDT SCAN DOC: TELEMETRY STRIPS 09/02/2023 11:18 PM EDT HC RANDOM URINE PEP Routine 09/02/2023 9 :30 PM EDT HC VENIPUNCTURE STAT 09/02/2023 8:16 PM EDT SCAN DOC: TELEMETRY STRIPS 09/02/2023 7:22 PM EDT SCAN DOC: TELEMETRY STRIPS 09/02/2023 7:22 PM EDT PRO-BRAIN NATRIURETIC PEPTIDE Routine 09/02/2023 5:05 PM EDT HC TROPONIN [...] TROPONIN T STAT 09/02/2023 3:18 AM EDT CBC (WITH DIFF) Routine 09/02/2023 3:18 AM EDT BASIC METABOLIC PANEL Routine 09/02/2023 3:18 AM EDT MAGNESIUM Routine 09/02/2023 3:18 AM EDT EKG 12-LEAD [...] EDT HEMOGRAM Routine 09/01/2023 3:08 AM EDT CBC (WITH DIFF) Routine 09/01/2023 3:08 AM EDT BASIC METABOLIC PANEL Routine 09/01/2023 3:08 AM EDT MAGNESIUM Routine 09/01/2023 3:08 AM EDT SCAN DOC: TELEMETRY STRIPS 08/31/2023 7:40 PM EDT MAGNESIUM Routine 08/31/2023 5:03 PM EDT PHOSPHORUS Routine 08/31/2023 5:03 PM EDT BASIC METABOLIC PANEL Routine 08/31/2023 5:03 PM EDT SCAN DOC: TELEMETRY STRIPS 08/31/2023 1:06 PM EDT SCAN DOC: TELEMETRY STRIPS 08/31/2023 7:21 AM EDT SCAN DOC: TELEMETRY STRIPS 08/31/2023 3:14 AM EDT DIFFERENTIAL, AUTOMATED Routine 08/31/19 2:18 AM EDT HEMOGRAM Routine 08/31/2023 2:18 AM EDT MAGNESIUM Routine 08/31/2023 2:18 AM EDT BASIC METABOLIC PANEL Routine 08/31/2023 2:18 AM EDT CBC (WITH DIFF) Routine 08/31/2023 2:18 AM EDT SCAN DOC: TELEMETRY STRIPS 08/30/2023 7:25 PM EDT SCAN DOC: TELEMETRY STRIPS 08/30/2023 7:25 PM EDT SCAN DOC: TELEMETRY STRIPS 08/30/2023 11:33 AM EDT SCAN DOC: TELEMETRY STRIPS 08/30/2023 7:40 AM EDT SCAN DOC: TELEMETRY STRIPS 08/30/2023 7:18 AM EDT DIFFERENTIAL, AUTOMATED Routine 08/30/19 3:09 AM EDT HEMOGRAM Routine 08/30/2023 3:09 AM EDT HEPARIN (UNFRACTIONATED) LEVEL Timed 08/30/2023 3:09 AM EDT MAGNESIUM Routine 08/30/2023 3:09 AM EDT BASIC METABOLIC PANEL Routine 08/30/2023 3:09 AM EDT CBC (WITH DIFF) Routine 08/30/2023 3:09 AM EDT SCAN DOC: TELEMETRY STRIPS 08/29/2023 10:55 PM EDT SCAN DOC: TELEMETRY STRIPS 08/29/2023 7:59 PM EDT HEPARIN (UNFRACTIONATED) LEVEL Timed 08/29/2023 5:49 PM EDT EKG 12-LEAD Routine 08/29/2023 3:05 PM EDT Non-ST elevation myocardial infarction (NSTEMI) HEPARIN (UNFRACTIONATED) LEVEL Timed 08/29/2023 11:48 AM EDT ECHO LMTD [...] EDT HEMOGRAM Routine 08/29/2023 4:01 AM EDT HEPARIN (UNFRACTIONATED) LEVEL Timed 08/29/2023 4:01 AM EDT BASIC METABOLIC PANEL Routine 08/29/2023 4:01 AM EDT CBC (WITH DIFF) Routine 08/29/2023 4:01 AM EDT HC VENIPUNCTURE STAT 08/29/2023 12:31 AM EDT SCAN DOC: TELEMETRY STRIPS 08/28/2023 9:15 PM EDT DIFFERENTIAL, AUTOMATED STAT 08/28/19 9:07 PM EDT HEMOGRAM STAT 08/28/2023 9:07 PM EDT HEPARIN (UNFRACTIONATED) LEVEL Timed 08/28/2023 9:07 PM EDT LIPID PANEL (REFLEX DIRECT LDL) Routine 08/28/2023 9:07 PM EDT PRO-BRAIN NATRIURETIC PEPTIDE Routine 08/28/2023 9:07 PM EDT HC TROPONIN T STAT 08/28/2023 9:07 PM EDT HEPATIC FUNCTION PANEL Routine 9:07 PM EDT CBC (WITH DIFF) STAT 08/28/2023 9:07 PM EDT BASIC METABOLIC PANEL STAT 08/28/2023 9:07 PM EDT MAGNESIUM STAT 08/28/2023 9:07 PM EDT FILM LIBRARY STORAGE ONLY CT CHEST Routine 08/28/2023 1:00 PM EDT ECG SCAN Routine 08/28/2023 11:53 AM EDT IGA Routine 08/25/2023 11:28 AM EDT Altered bowel function Depression, unspecified depression type IGG Routine 08/25/2023 11:28 AM EDT Altered bowel function Depression, unspecified depression type TISSUE TRANSGLUTAMINASE, IGA Routine 08/25/2023 11:28 AM EDT Altered bowel function Depression, unspecified depression type BASIC METABOLIC PANEL Routine 08/25/2023 11:28 AM EDT Chronic kidney disease, unspecified CKD stage HC DNA AB DS ([place]) Routine 08/25/2023 11:28 AM EDT Heart failure with preserved ejection fraction, unspecified HF chronicity HC SERUM PROT. ELECTROPHORESIS Routine 08/25/2023 11:28 AM EDT Heart failure with preserved ejection fraction, unspecified HF chronicity IMMUNOGLOBULIN FREE LIGHT CHAINS, SERUM Routine 08/25/2023 11:28 AM EDT Heart failure with preserved ejection fraction, unspecified HF chronicity IRON AND TIBC Routine 08/25/2023 11:28 AM EDT Heart failure with preserved ejection fraction, unspecified HF chronicity FERRITIN Routine 08/25/2023 11:28 AM EDT Heart failure with preserved ejection fraction, unspecified HF chronicity LYME IGG & IGM ANTIBODY Routine 08/25/19 11:28 AM EDT Heart failure with preserved ejection fraction, unspecified HF chronicity STREPTOCOCCAL ANTIBODY PANEL Routine 08/25/2023 11:28 AM EDT Heart failure [...] EKG 12-LEAD Routine 07/26/2023 3:57 PM EDT COLONOSCOPY Routine 07/07/2023 1:39 PM EDT from Last 3 Months or Most Recently Relevant to Health Maintenance Results * Duplex Study Visceral Arteries, Comp (10/08/2023 8:22 AM EDT) Only the most recent of2 resultswithin the time period is included. VB Text Report Department: Vascular Surgery Lab Patient: [id number] (LOIDA ROQUE) CPT: 41340 Referring Physician: JUDITH BUTLER ?? Phone: Indications: s/p SMA stenting 06/29/23 Findings: Unilateral ? Waveform ?PSV cm/s ??EDV cm/s ?? Yuki Renal Aorta ? 71 ?13 ?? Celiac Artery, Proximal ??Biphasic ? 104 ?19 ?? Celiac Artery, Mid ? Biphasic ?99 ? 9 ?? Celiac Artery, Distal ?Biphasic ?88 ?17 ?? Sup Mes Artery Proximal ??Bi-Triphasic ? 289 ?31 ?? Sup Mes Artery Middle ?Triphasic ?111 ? 0 ?? Sup Mes Artery Distal ?Triphasic ? 76 ? 0 ?? Hepatic Artery ? Bi-Triphasic ?81 ?17 ?? Splenic Artery ? Biphasic ?87 ?22 ?? Inf Mes Artery ? Bi-Triphasic ?80 ? 0 ?? Interpretation: Patent stented superior mesenteric artery with [...] within mesenteric artery stents may differ from [place] arteries, with thresholds for diagnosis of significant stenosis likely being somewhat higher in stented arteries than [place].% To date, there is no evidence based consensus of stent velocity criteria. Therefore, the current interpretation is based on [place] artery thresholds. Previous Celiac/Mesenteric Studies: Date ? SMA PSV ?? EDV ?? Celiac PSV ?? EDV ? 427 ? 91 ?119 ? 26 ? 289 ? 27 ?116 ? 20 ? 316 ? 39 ?100 ? 22 Current Exam ?? 289 ? 31 ?104 ? 19 Electronically Signed by: LEE WAY on 2023-10-08 09:58:43 AM VASCUBASE VB Text Report End of Report [facility] 10/08/2023 8:22 AM EDT Judith Butler PAN HELPER VASCULAR ORDERABLES VASCUBASE * Non DH External Radiology Exam (09/20/2023 [...] 8:40 AM EDT) Only the most recent of51 resultswithin the time period is included. Narrative 09/10/2023 8:40 AM EDT Ordered by an unspecified provider. Scanning Provider MEDIA MGR SCAN EXT O RDR/RSLT * (ABNORMAL) Hemogram (09/10/2023 4:17 AM EDT) Only the most recent of14 resultswithin the time period is included. White Blood Cell 7.6 4.0 - 9.5 x10(3)/ L [facility] Red Blood Cell 4.15 4.00 - 5.21 x10(6)/mc L [facility] Hemoglobin 13.0 11.7 - 15.5 g/dL [facility] Hematocrit 39.2 35.7 - 45.8 % [facility] Mean Cell Volume 94.5(H) 82.6 - 94.4 fL [facility] Mean Cell Hemoglobin 31.3 27.1 - 32.0 pg [facility] Mean Cell Hemoglobin Concentration 33.2 31.7 - 35.0 g/dL [facility] Platelet 267 145 - 357 x10(3)/ L [facility] RDW Standard Deviation 44.6 37.0 - 46.0 [facility] RDW coefficient of variation 13.1 11.5 - 14.1 % [facility] Mean Platelet Volume 10.3 7.6 - 12.9 [facility] NRBC% auto 0.0 % [facility] NRBC Absolute 0.000 0.000 - 0.000 x10(3)/ L [facility] Blood 09/10/2023 4:17 AM EDT 09/10/2023 4:29 AM EDT Narrative Resulting Agency Comment Spec In Lab Eufemia Copeland MD HEMATOLOGY ORDERAB LES Performing Organization Address City/[facility]/ZIP Co de Phone Number [facility] [place] [address] * Differential, Automated (09/10/2023 4:17 AM EDT) Only the most recent of14 resultswithin the time period is included. Neutrophil % 54.4 % [facility] Neutrophil Absolute 4.17 1.70 - 6.10 x10(3)/[facility] Lymph % 33.2 % [facility] Lymphocytes Abs 2.5 0.9 - 3.2 x10(3)/[facility] Monocyte % 8.4 % [facility] Monocyte Abs 0.6 0.3 - 0.9 x10(3)/[facility] Eos % 3.0 % [facility] Eosinophils Abs 0.2 0.0 - 0.4 x10(3)/[facility] Basophil % 0.7 % [facility] Baso Absolute 0.0 0.0 - 0.1 x10(3)/[facility] Immature Gran % 0.30 % [facility] Comment: Immature granulocytes(IG's)percentage and absolute count will include metamyelocytes, myelocytes, and promyelocytes. Blood smears from CBCs yielding IG's will be scanned manually for concordance. If this scan disagrees with the automated IG or if promyelocytes are noted, a manual differential will be performed. Immature Gran Absolute 0.02 0.00 - 0.04 x10(3)/[facility] Blood 09/10/2023 4:17 AM EDT 09/10/2023 4:29 AM EDT Narrative Resulting Agency Comment Spec In Lab Eufemia Copeland MD HEMATOLOGY ORDERAB LES Performing Organization Address City/[facility]/ZIP Co de Phone Number [facility] [place] [address] * Magnesium (09/10/2023 4:17 AM EDT) Only the most recent of14 resultswithin the time period is included. Magnesium 0.99 0.69 - 1.07 mmol/L [facility] Blood 09/10/2023 4:17 AM EDT 09/10/2023 4:29 AM EDT Narrative Resulting Agency Comment Spec In Lab Eufemia Copeland MD CHEMISTRY ORDERABL ES [facility] [place] [address] * (ABNORMAL) Basic Metabolic Panel (non-fasting) (09/10/2023 4:17 AM EDT) Only the most recent of17 resultswithin the time period is included. Pathologist [facility] Glucose 92 65 - 199 mg/dL [facility] Comment:Diabetes: >=200 mg/d L plus symptoms Blood Urea Nitrogen 27(H) 8 - 18 mg/dL [facility] Creatinine 1.39(H) 0.70 - 1.20 mg/dL [facility] [...] 107 mmol/L [facility] Carbon Dioxide 24 22 - 31 mmol/L [facility] Anion Gap 11 5 - 15 mmol/L [facility] Calcium 9.4 8.5 - 10.5 mg/dL [facility] Est Glomerular Filtration Rate 45(L) >=60 mL/min/1. 73 m?? [facility] [...] MD CHEMISTRY ORDERABL ES Performing Organization Address City/[facility]/ZIP Co de Phone Number [facility] [place] [phone] * EKG 12 Lead (09/08/2023 4:01 AM EDT) Only the most recent of12 resultswithin the time period is included. Ventricular rate 59 BPM MUSE SYSTEM Atrial Rate 59 BPM MUSE SYSTEM P-R Interval 192 ms MUSE SYSTEM QRS Duration 92 ms MUSE SYSTEM Q-T Interval 452 ms MUSE SYSTEM QTC Calculated (Bezet) 447 ms MUSE SYSTEM Calculated P [place] 38 degrees MUSE SYSTEM Calculated R [place] 51 degrees MUSE SYSTEM Calculated T [place] -18 degrees MUSE SYSTEM INTERPRETATION Sinus bradycardia Diffuse ST depression, consider subendocardial injury Abnormal ECG When compared with ECG of 03-SEP-2023 06:02, Premature atrial complexes are no longer Present QT has shortened I personally reviewed the tracing and edited the fellows interpretation Confirmed by fellow Vito Pearce ([id number]) on 09/08/2023 7:40:32 AM Confirmed by MD Angelo Danette ([id number]) on 09/08/2023 2:12:57 PM MUSE SYSTEM 09/08/2023 4:01 AM EDT 09/08/2023 2:12 PM EDT Eufemia Copeland MD ECG ORDERABLES MUSE SYSTEM * CT Abdomen & Pelvis w Contrast (09/05/2023 4:25 PM EDT) WORKSTATION ID [id number] RAD Anatomical Region Laterality Modality Abdomen, Pelvis [...] questions please contact the health intensive care ambulance paramedic that requested your imaging first. ? Electronically signed by: Lalitha Sanders MD, [facility] ([phone]), at 09/06/2023 9:47 AM Narrative 09/06/2023 9:47 [...] have questions please contactthe health intensive care ambulance paramedic that requested your imaging first. Electronically signed by: Lalitha Sanders MD, [facility]([phone]), at 09/06/2023 9:47 AM Samantha Broussard MD IMG CT ORDERABLES * Miscellaneous Lab request (09/05/2023 1:58 AM EDT) Pathologist [facility] Label Request received in lab. [facility] Blood 09/05/2023 1:58 AM EDT 09/05/2023 2:14 AM EDT Narrative Resulting Agency Comment Spec In Lab Samantha Broussard MD LAB SEND OUT ORDERAB LES [facility] [place] [address] * IgG 4 (09/05/2023 1:58 AM EDT) IgG 4 47.7 3.9 - 86.4 mg/dL [facility] Blood 09/05/2023 1:58 AM EDT 09/05/2023 2:13 AM EDT Narrative Resulting Agency Comment Spec In Lab Samantha Broussard MD IMMUNOLOGY ORDERABLE S Performing Organization Address [facility] Co de Phone Number [facility] [place] [address] * (ABNORMAL) Potassium (09/04/2023 9:13 AM EDT) Only the most recent of2 resultswithin the time period is included. [facility] Potassium 3.2(L) 3.5 - 5.0 mmol/L [facility] [...] Broussard MD CHEMISTRY ORDERABLES Performing Organization Address [facility] Co de Phone Number [facility] [place] [address] * (ABNORMAL) Protein Electrophoresis, serum (09/03/2023 2:39 AM EDT) Only the most recent of2 resultswithin the time period is included. [facility] Total Prot Electrophoresis 7.9 6.1 - 8.0 g/dL [facility] Albumin Electrophoresis 4.87 3.20 - 5.20 g/dL [facility] Alpha 1 Globulin 0.21 0.10 - 0.30 g/dL [facility] Alpha 2 Globulin 1.03(H) 0.40 - 0.90 g/dL [facility] Beta Globulin 0.90 0.50 - 1.00 g/dL [facility] Gamma Globulin 0.88 0.50 - 1.30 g/dL [facility] M1 Band None Detected None Detected [facility] Blood 09/03/2023 2:39 AM EDT 09/03/2023 2:46 AM EDT Narrative Resulting Agency Comment Spec In Lab Lorna Herr MD CHEMISTRY ORDERABLES Performing Organization Address [facility] Co de Phone Number [facility] [place] [address] * Protein Electrophoresis, urine, random (09/02/2023 9:30 PM EDT) Pathologist [facility] Protein, Urine <6 0 - 12 mg/dL [facility] U Albumin See Note [facility] Comment:No protein visible v ia electrophoresis due to a low urine total protein. Globulin, Urine Not Perf [facility] Comment:No protein visible v ia electrophoresis due to a low urine total protein. M1 Band, Urine Not Perf [facility] Comment:No protein visible v ia electrophoresis due to a low urine total protein. UPEP Comments See Note [facility] Comment: Total Protein concentration too low to fractionate using current electrophoretic technique. No protein visible via electrophoresis due to a low urine total protein. Urine 09/02/2023 9:30 PM EDT 09/02/2023 9:35 PM EDT Narrative Resulting Agency Comment Spec In Lab Lorna Herr MD URINE ORDERABLES Performing Organization Address [facility] Co de Phone Number [facility] [place] [address] * (ABNORMAL) Troponin (09/02/2023 8:16 PM EDT) Only the most recent of6 resultswithin the time period is included. Troponin-T, High Sensitivity 24(H) <=14 ng/L [facility] [...] can be found in the [facility] Test Catalog Troponin - [facility] Test Catalog Reference: Fourth [place] Definition of Myocardial Infarction. Journal of the [employer] 2018;72:7631-3622 Blood 09/02/2023 8:16 PM EDT 09/02/2023 8:25 PM EDT Narrative Resulting Agency Comment Spec In Lab Lorna Herr MD CHEMISTRY ORDERABLES Performing Organization Address City/[facility]/ZIP Co de Phone Number [facility] [place] [address] * (ABNORMAL) pro-Brain Natriuretic Peptide (09/02/2023 5:05 PM EDT) Only the most recent of2 resultswithin the time period is included. NT-proBNP 985(H) <=124 pg/mL [facility] Blood 09/02/2023 5:05 PM EDT 09/02/2023 5:17 PM EDT Narrative Resulting Agency Comment Spec In Lab Lorna Herr MD CHEMISTRY ORDERABLES [facility] [place] [address] * Phosphorus (08/31/2023 5:03 PM EDT) Pathologist [facility] Phosphorus 3.8 2.5 - 4.5 mg/dL [facility] Blood 08/31/2023 5:03 PM EDT 08/31/2023 5:08 PM EDT Narrative Resulting Agency Comment Spec In Lab Eufemia Copeland MD CHEMISTRY ORDERABL ES Performing Organization Address City/[facility]/ZIP Co de Phone Number [facility] [place] [address] * Heparin (unfractionated) Level (08/30/2023 3:09 AM EDT) Only the most recent of5 resultswithin the time period is included. [facility] UF Heparin 0.46 IU/mL [facility] [...] Lab Felix Mcmanus MD HEMATOLOGY ORDERABLE S Performing Organization Address City/[facility]/ZIP Co de Phone Number [facility] [place] [address] * ECHO LMTD W CONTRAST W LMTD SPEC DOPP COLOR DOPP (08/29/2023 11:35 AM EDT) [facility] EF 50 HEARTLAB SYSTEM Anatomical Region Laterality Modality Cardiac Other 08/29/2023 9:47 AM EDT Narrative 08/29/2023 12:27 PM EDT [address] [place] [address] ? Echocardiogram Report Name: LOIDA ROQUE ? Study Date: 08/29/2023 09:47 AMBP: 100/55 mmHg ? Patient Location: [place] 0[address] A : 1970 ? Height: 163 cm ? Account: [id number] Age: 53 yrs ? Weight: 102 kg Gender: Female ?BSA: 2.1 m2 Ordering Physician: FELIX MCMANUS Referring Physician: SKIP HUMPHREY Performed By: Nalini Alvares RDCS Exam Location: [facility]. Interpretation Summary Left ventricle [...] of the anterior wall. Procedure Limited - 95353. Image enhancement Optison was used for left [...] Note Jaspreet Kinsey MD - 08/29/2023 1 [place] [address] Echocardiogram Report Name: LOIDA ROQUE Study Date: 409:47 AMBP: 100/55 mmHg Patient Location: [address] : 1970 Height: 163 cm Account: [id number] Age: 53 yrs Weight: 102 kg Gender: Female BSA: 2.1 m2 Ordering Physician: FELIX MCMANUS Referring Physician: SKIP HUMPHREY Performed By: Nalini Alvares HUMPHREY Exam Location: [facility]. Interpretation Summary Left ventricle is normal in size. There is low normal global systolicfunction, with focal hypokinesis in the anteroseptum as ascribed. Right ventricle is not well visualized. No hemodynamically significant valve disease. Compared to prior studies over the past 6 months, there has been stableglobal LV systolic function, with oscillating regional function of the anteriorwall. Procedure Limited - 65486. Image enhancement Optison was used for left [...] CRP, acute inflammation (08/29/2023 4:01 AM EDT) C-Reactive Protein <3.0 <=4.9 mg/L [facility] Blood Venous Draw / Unknown 08/29/2023 4:01 AM EDT 08/29/2023 4:13 AM EDT Narrative Resulting Agency Comment Spec In Lab Eufemia Copeland MD CHEMISTRY ORDERABL ES Performing Organization Address [facility] Co de Phone Number [facility] [place] [address] * Green Tube HOLD (08/29/2023 4:01 AM EDT) Green Hold Sample in lab. [facility] Blood Venous Draw / Unknown 08/29/2023 4:01 AM EDT 08/29/2023 4:09 AM EDT Felix Mcmanus MD CHEMISTRY ORDERABLES Performing Organization Address [facility] de Phone Number [facility] [place] [address] * Sedimentation rate (08/29/2023 4:01 AM EDT) [facility] Sedimentation Rate Automated 11 2 - 39 mm/hr [facility] MD HEMATOLOGY ORDERAB LES Performing Organization Address [facility] Co de Phone Number [facility] [place] [address] * (ABNORMAL) Hepatic Function Panel (08/28/2023 9:07 PM EDT) [facility] Signature Protein, Total 6.6 6.1 - 8.0 g/dL [facility] Albumin 4.2 3.2 - 5.2 g/dL [facility] Aspartate Aminotransferase 32(H) 0 - 30 unit/L [facility] Alanine Aminotransferase 28 0 - 30 unit/L [facility] Alkaline Phosphatase 52 35 - 105 unit/L [facility] Bilirubin, Total 0.6 0.2 - 1.3 mg/dL [facility] Bilirubin, Direct 0.2 0.0 - 0.3 mg/dL [facility] Blood 08/28/2023 9:07 PM EDT 08/28/2023 9:12 PM EDT Narrative Resulting Agency Comment Spec In Lab Felix Mcmanus MD CHEMISTRY ORDERABLES Performing Organization Address City/State/[facility] Co de Phone Number [facility] [place] [address] * Lipid Panel (Reflex Direct LDL) (08/28/2023 9:07 PM EDT) Cholesterol, Total 203 mg/dL [facility] Comment: Desirable: ? <200 mg/dL Borderline High: 200-239 mg/dL Higher: ?>vh=253 mg/dL Triglyceride 146 mg/dL [facility] Comment: Normal: ?<150 mg/dL Borderline High: 150-199 mg/dL High: ?200-499 mg/dL Very High: ? >ss=282 mg/dL HDL Cholesterol 52 mg/dL [facility] Comment: Females: High Risk: <50 mg/dL Males: High Risk: <40 mg/dL LDL Cholesterol 122 mg/dL [facility] Comment: Desirable: ? <100 mg/dL Above Desirable: 100-129 mg/dL Borderline High: 130-159 mg/dL High: ?160-189 mg/dL Very High: ? >we=951 mg/dL Lipid Interpretation See Note [facility] [...] ACC/AHA Guidelines (most recently Ysabel et al. [facility] 12/09/21): For individuals with atherosclerotic cardiovascular disease (ASCVD)or LDL >jj=562 mg/dL, use a high-intensity statin (40-80 mg [...] In Lab Felix Mcmanus MD CHEMISTRY ORDERABLES [facility] [place] [address] * Film Library- Storage Only CT Chest (08/28/2023 1:00 PM EDT) Narrative [facility] - 08/28/2023 1:00 PM EDT This exam is auto-finalizing. It's purpose is for storage only. Jaspreet Kinsey MD IMG FILM LIBRARY ORD ERABLES Performing Organization Address [facility] Co de Phone Number [place], [place] * (ABNORMAL) Free Light Chains, Serum (08/25/2023 11:28 AM EDT) Pathologist [facility] Parole Free Light Chain 3.09(H) 0.72 - 2.75 mg/dL [facility] Lambda Free Light Chain 1.65 0.57 - 2.15 mg/dL [facility] Parole/Lambda FLC Ratio 1.8727 0.4000 - 2.5800 [facility] Blood 08/25/2023 11:2 8 AM EDT 08/25/2023 11:36 AM EDT Narrative Resulting Agency Comment Spec In Lab Jaspreet Kinsey MD CHEMISTRY ORDERABLES Performing Organization Address [facility] de Phone Number [facility] [place] [address] * Lyme IgG & IgM Antibody (08/25/2023 11:28 AM EDT) [facility] Lyme Antibody Negative Negative [facility] Lyme Ab Comment Negative result does not exclude possibility of infection. [facility] Comment: Please note that as of 07/14/2022 that this testing is performed by the Special Chemistry Laboratory at [facility]. This change in testing location is associated with a change in testing methodology. Blood 08/25/2023 11:2 8 AM EDT 08/26/2023 7:26 AM EDT Narrative Resulting Agency Comment Spec In Lab Jaspreet Kinsey MD IMMUNOLOGY ORDERABLE S Performing Organization Address [facility] Co de Phone Number [facility] [place] [address] * Iron and TIBC (08/25/2023 11:28 AM EDT) Pathologist [facility] Iron 113 30 - 150 mcg/dL [facility] TIBC 338 250 - 450 mcg/dL [facility] Iron Saturation 33 20 - 50 % [facility] Blood 08/25/2023 11:2 8 AM EDT 08/25/2023 11:36 AM EDT Narrative Resulting Agency Comment Spec In Lab Jaspreet Kinsey MD CHEMISTRY ORDERABLES Performing Organization Address [facility] Co de Phone Number [facility] [place] [address] * Tissue transglutaminase, IgA (08/25/2023 11:28 AM EDT) [facility] TTG IgA Ab 0.6 <=10.0 u/ml [facility] Comment: Negative: ??<7 units/mL Indeterminate: 7-10 units/mL Positive: ??>10 units/mL Blood 08/25/2023 11:2 8 AM EDT 08/26/2023 7:26 AM EDT Narrative Resulting Agency Comment Spec In Lab Mary Reyes APRN IMMUNOLOGY ORDERAB LES Performing Organization Address [facility] Co de Phone Number [facility] [place] [address] * Streptococcal Antibody Panel (08/25/2023 11:28 AM EDT) [facility] Aso Titer (JULY) 25 0 - 530 IU/mL [facility] Comment: Test Performed by: [facility] [address] [place] [address] Supervisor Slitting And Shipping: Nellie Haney Ph.D.; CLIA# [id number] Dnase B Ab (JULY) 146 0 - 300 unit/mL [facility] Comment: Test Performed by: [facility] [address] [place] [address] Supervisor [employer]itting [employer] Shipping: Nellie Haney Ph.D.; CLIA# [id number] Blood 08/25/2023 11:2 8 AM EDT 08/25/2023 1:02 PM EDT Narrative Resulting Agency Comment Spec In Lab Jaspreet Kinsey MD LAB SEND OUT ORDERAB LES [facility] [place] [address] * KATHRINE Antibody Screen (08/25/2023 11:28 AM EDT) KATHRINE Ab Screen Negative Negative [facility] [...] by the Special Chemistry Laboratory at [facility]. This change in testing location is associated with a change is testing method and reference intervals. Please review the results of this test in association with the posted reference intervals. Blood 08/25/2023 11:2 8 AM EDT 08/26/2023 7:26 AM EDT Narrative Resulting Agency Comment Spec In Lab Jaspreet Kinsey MD LAB SEND OUT ORDERAB LES Performing Organization Address [facility] Co de Phone Number [facility] [place] [address] * IgA (08/25/2023 11:28 AM EDT) IgA 372 70 - 400 mg/dL [facility] Blood 08/25/2023 11:2 8 AM EDT 08/25/2023 11:37 AM EDT Narrative Resulting Agency Comment Spec In Lab Mary Reyes APRN CHEMISTRY ORDERABL ES Performing Organization Address [facility] Phone Number [facility] [place] [address] * IgG (08/25/2023 11:28 AM EDT) Immunoglobulin G 1,114 700 - 1,600 mg/dL [facility] Comment: Pediatric Reference Intervals obtained from the Caliper Reference Interval project. http://www.sickkids.ca/caliperproject/index.html Blood 08/25/2023 11:2 8 AM EDT 08/25/2023 11:37 AM EDT Narrative Resulting Agency Comment Spec In Lab Mary Reyes APRN CHEMISTRY ORDERABL ES Performing Organization Address [facility] de Phone Number [facility] [place] [address] * Ferritin (08/25/2023 11:28 AM EDT) Ferritin 110 11 - 328 ng/mL [facility] Comment: Please note that as of 02/10/2023, the reference intervals for Ferritin have been updated. Blood 08/25/2023 11:2 8 AM EDT 08/25/2023 11:37 AM EDT Narrative Resulting Agency Comment Spec In Lab Jaspreet Kinsey MD CHEMISTRY ORDERABLES Performing Organization Address [facility]/State/[place] [address] * NM PET CT Cardiac Pharmacologic Stress CT Component (08/17/2023 2:38 PM EDT) WORKSTATION ID [id number] RAD Anatomical Region Laterality Modality Positron Emissio [...] questions please contact the health intensive care ambulance paramedic that requested your imaging first. ? Electronically signed by: Clay Stanton MD, [facility] ([phone]), at 08/18/2023 2:49 PM Narrative 08/18/2023 2:49 [...] Coronary calcifications. Bilateral ground glass opacities are [id number] Procedure Note Clay Stanton MD - 08/18/2023 EXAMINATION: CA PET CT CARDIAC PHARMACOLOGIC STRESS AND REST, CA PET CTCARDIAC PHARMACOLOGIC STRESS CT COMPONENT CLINICAL [...] Coronary calcifications. Bilateral ground glass opacities are [id number] IMPRESSION Moderate-sized scar in the apical septum [...] have questions please contactthe health intensive care ambulance paramedic that requested your imaging first. Porsha Mcfarlane MD IMG PET ORDERABLES * NM PET CT Cardiac Pharmacologic Stress and Rest (08/17/2023 2:38 PM EDT) [employer] WORKSTATION ID [id number] [facility] Anatomical Region Laterality Modality Positron Emissio n [...] questions please contact the health intensive care ambulance paramedic that requested your imaging first. ? Electronically signed by: Clay Stanton MD, [facility] ([phone]), at 08/18/2023 2:49 PM Narrative 08/18/2023 2:49 PM EDT EXAMINATION: CA PET CT CARDIAC PHARMACOLOGIC STRESS AND REST, CA PET CT CARDIAC PHARMACOLOGIC STRESS CT COMPONENT [...] Note Clay Stanton MD - 08/18/2023 EXAMINATION: CA PET CT CARDIAC PHARMACOLOGIC STRESS AND REST, CA PET CTCARDIAC PHARMACOLOGIC STRESS CT COMPONENT CLINICAL [...] Coronary calcifications. Bilateral ground glass opacities are [id number] IMPRESSION Moderate-sized scar in the apical septum [...] have questions please contactthe health intensive care ambulance paramedic that requested your imaging first. Porsha Mcfarlane MD IMG PET ORDERABLES * Nuclear Pharmacologic Stress Cardiology (PET CT Mobile) (08/17/2023 2:17 PM EDT) Anatomical Region Laterality Modality Other Porsha Mcfarlane MD CARDIAC SERVICES OR DERABLES * COLONOSCOPY (07/07/2023 1:39 PM EDT) COLONOSCOPY [facility] Endoscopy Procedure Date: 07/07/2023 1:39 PM ? Patient Name: Loida Roque ? Date of : 1970 ? Age: 53 ? Order #: [id number] ? Instrument Name: [id number] ? Procedure: ? Colonoscopy Indications: ? Abdominal [...] ? was evaluated using the BBPS ? ([place] Bowel Preparation Scale) ? with scores [...] Procedure Code(s): ? --- Professional --- ? 15761, Colonoscopy, flexible; with ? biopsy, single or multiple CPT copyright 2021 [employer]. All rights reserved. The codes documented in this report are preliminary and upon salesperson flowers review may be revised to meet current compliance requirements. Attending Participation: ? I was present and participated during the entire ? procedure, including non-chavis portions. ? Lashonda Villa MD _ Lashonda Villa MD 07/07/2023 3:03:36 PM This report has been signed electronically. 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
--- OUTSIDE RECORDS SUMMARY | 2023-10-20 19:50 | XMS_ITS | Encounter Summary ---
Author Organization [facility] Address [facility] [place] [address] Care Team Providers Care Crane Ladle Person Name Role Phone Polo Pearce Primary Care Provider [phone] Encounter Details Date Type Department Care Team (Latest Contact Info) Description 10/08/2023 Travel Social History Tobacco Use Types Packs/Day [...] slept in a fci (including now)? No 06/15/2023 Housing Stability Vital [...] were you homeless or living in a fci (including now)? No 08/30/2023 DH IPV Inpatient [...] AM EDT Hospital Encounter [place] [address] [place] [address] 10/21/2023 11:30 AM EDT Appointment [place] [address] [place] [address] 10/21/2023 12:30 PM EDT Appointment [place] [phone] Mary Reyes [employer] [place] [address] 10/21/2023 1:30 PM EDT Appointment [place] [address] Mary Reyes [facility] [address] 10/21/2023 2:30 PM EDT Appointment [place] [phone] [place] [address] 10/26/2023 4:00 PM EDT Office Visit Cardiology at [address] [phone] Jaspreet Kinsey MD [facility] [place] [address] 10/28/2023 9:00 AM EDT Office [place] [address] 10/29/2023 10:00 AM EDT Clinical [place] [address] 10/29/2023 10:15 AM EDT Procedure [place] [address] 11/01/2023 5:00 PM EDT Office [place] [phone] Selene Browning, PhD [facility] [place] [address] 11/22/2023 4:40 PM EDT Office Visit Cardiology at [address] [phone] Porsha Mcdaniels MD [facility] [place] [address] 12/13/2023 10:00 AM EDT Clinical [place] [phone] [facility] [place] [address] documented as of this encounter Visit Diagnoses Not on filedocumented in this encounter Care Teams Crane Ladle Person Relationship Specialty Start Date End Date Polo Pearce PA [address] [place] [id number] PCP - General Internal Medicine 06/09/21 documented as of this encounter
--- OUTSIDE RECORDS SUMMARY | 2023-10-20 19:50 | XMS_ITS | Encounter Summary ---
Author Organization [facility] [place] [address] Care Team Providers Care Senior Insight Manager Name Role Phone Polo Pearce Primary Care Provider [phone] Reason for Referral * Diagnostic Test (Routine) - Pending Review Specialty Diagnoses / Procedures Referred By Contac t Referred To Contact Radiology Procedures Non [place] [address] Referral ID Status Reason Start Date Expiration Date Visits Requested Visits Authorized [id number] Pending Review Specialty Service Requested 09/20/2023 03/22/2025 1 1 * Diagnostic Test (Routine) - Pending Review Specialty Diagnoses / Procedures Referred By Contac t Referred To Contact Radiology Procedures Non [place] [address] Referral ID Status Reason Start Date Expiration Date Visits Requested Visits Authorized [id number] Pending Review Specialty Service Requested 09/20/2023 03/22/2025 1 1 * Diagnostic Test (Routine) - New Request Specialty Diagnoses / Procedures Referred By Contac t Referred To Contact Radiology Procedures Non [place] [address] Referral ID Status Reason Start Date Expiration Date Visits Requested Visits Authorized [id number] New Request Specialty Service Requested 09/20/2023 03/22/2025 1 1 Encounter Details Date Type Department Care Team (Nadege alan Contact Info) Description 09/20/2023 External Results Administration [facility] [place] [address] Social History Tobacco Use Types Packs/Day Years Used Date Smoking Tobacco: Never Smokeless Tobacco: Never Alcohol Use Standard Drinks/Week Comments Never 0 (1 standard drink = 0.6 oz pur e alcohol) [facility] Utilities Answer Date Recorded In [...] in a half-way (including now)? No 06/15/2023 Housing Stability Vital [...] were you homeless or living in a half-way (including now)? No 08/30/2023 DH IPV Inpatient [...] AM EDT Hospital Encounter [place] [address] Mary Reyes [facility] [place] [address] 10/21/2023 11:30 AM EDT Appointment [place] [address] Mary Reyes [facility] [place] [address] 10/21/2023 12:30 PM EDT Appointment [place] [address] Mary Reyes [facility] [place] [address] 10/21/2023 1:30 PM EDT Appointment [place] [address] Mary Reyes [facility] [place] [address] 10/21/2023 2:30 PM EDT Appointment [place] [address] Mary Reyes APRN [facility] [place] [address] 10/26/2023 4:00 PM EDT Office Visit Cardiology at [address] [phone] Jaspreet Kinsey MD [facility] [place] [address] 10/28/2023 9:00 AM EDT Office [place] [address] 10/29/2023 10:00 AM EDT Clinical [place] [address] 10/29/2023 10:15 AM EDT Procedure [place] [address] 11/01/2023 5:00 PM EDT Office Visit Gastroenterology at [place] [phone] Selene Browning, PhD [facility] [address] 11/22/2023 4:40 PM EDT Office Visit Cardiology at [address] [phone] Porsha Mcdaniels MD [facility] [place] [address] 12/13/2023 10:00 AM EDT Clinical [place] [address] [facility] [place] [address] documented as of this encounter Procedures Procedure [...] filedocumented in this encounter Care Teams Senior Insight Manager Relationship Specialty Start Date End Date Polo Pearce PA [address] [place] [address] PCP - General Internal Medicine 06/09/21 documented as of this encounter
--- OUTSIDE RECORDS SUMMARY | 2023-10-20 19:50 | XMS_ITS | Encounter Summary ---
Author Organization [facility] [place] [address] Care Team Providers Care Lawyer Probate Name Role Phone Polo Pearce Primary Care Provider [phone] Reason for Visit * Diagnostic Test (Routine) - Closed Specialty Diagnoses / Procedures Referred By Jayant harris Referred To Contact Diagnoses Mesenteric ischemia Procedures Duplex Study Visceral Arteries, Comp Colette Marx APRN [facility] [place] [address] [facility] [address] [address] Referral ID Status Reason Start Date Expiration Date V isits Requested Visits Authorized [id number] Closed Specialty Service Requested 06/28/2023 06/27/2024 1 1 Encounter Details Date Type Department Care Team (Late st Contact Info) Description 10/08/2023 8:30 AM EDT Tech [place] [address] Channing Escobedo [place] Mesenteric ischemia Social History Tobacco Use Types Packs/Day Years Used Date Smoking Tobacco: Never Smokeless Tobacco: Never Alcohol Use Standard Drinks/Week Comments Never 0 (1 standard drink = 0.6 oz pur e alcohol) [facility] Utilities Answer Date Recorded In the [...] any time in the past 12 m [facility], were you homeless or living in a [...] AM EDT Hospital Encounter Nuclear [place] [address] Mary Reyes [facility] [place] [address] 10/21/2023 11:30 AM EDT Appointment Nuclear Medicine at [place] [phone] Mary Reyes [facility] [place] [address] 10/21/2023 12:30 PM EDT Appointment Nuclear Medicine at [place] [phone] Mary Reyes [facility] [place] [address] 10/21/2023 1:30 PM EDT Appointment [place] [address] Mary Reyes [facility] [place] [address] 10/21/2023 2:30 PM EDT Appointment [place] [address] Mary Reyes [facility] [place] [address] 10/26/2023 4:00 PM EDT Office Visit Cardiology at [address] [address] Jaspreet Kinsey MD [facility] [place] [address] 10/28/2023 9:00 AM EDT Office Visit [place]astro[place] [address] 10/29/2023 10:00 AM EDT Clinical Support [place]astro[place] [address] 10/29/2023 10:15 AM EDT Procedure visit Gastro[place] [address] 11/01/2023 5:00 PM EDT Office [place] [phone] Selene Browning, PhD [facility] [place] [address] 11/22/2023 4:40 PM EDT Office Visit Cardiology at [address] [phone] Porsha Mcdaniels MD [facility] [place] [address] 12/13/2023 10:00 AM EDT Clinical [place] [phone] Lucero Romero, RD [facility] [place] [address] documented as of this encounter Procedures Procedure Name Priority Date/Time Associated Diagnosis Comments MESENTERIC COMPLETE Routine 10/08/2023 8 :22 AM EDT Mesenteric ischemia documented in this encounter Results * Duplex Study Visceral Arteries, Comp (10/08/2023 8:22 AM EDT) VB Text Report Department: Vascular Surgery Lab Patient: [id number] (LOIDA ROQUE) CPT: 72554 Referring Physician: JUDITH PICKENS ?? Phone: Indications: s/p SMA stenting 06/29/23 Findings: Unilateral ? Waveform ?PSV cm/s ??EDV cm/s ?? Dary Renal Aorta ? 71 ?13 ?? Celiac [...] within mesenteric artery stents may differ from shin[place]cock arteries, with thresholds for diagnosis of significant stenosis likely being somewhat higher in stented arteries than sh[place]cock.% To date, there is no evidence based consensus of stent velocity criteria. Therefore, the current interpretation is based on [place]cock artery thresholds. Previous Celiac/Mesenteric Studies: Date ? SMA PSV ?? EDV ?? Celiac PSV ?? EDV ? 427 ? 91 ?119 ? 26 ? 289 ? 27 ?116 ? 20 ? 316 ? 39 ?100 ? 22 Current Exam ?? 289 ? 31 ?104 ? 19 Electronically Signed by: LEE ZAVALA on 2023-10-08 09:58:43 AM [facility] VB Text Report End of Report [facility] 10/08/2023 8:22 AM EDT Judith Pickens APRN VASCULAR ORDERABLES [facility] documented in this encounter Visit Diagnoses Diagnosis Mesenteric ischemia Unspecified vascular insufficiency of intestine documented in this encounter Care Teams Lawyer Probate Relationship Specialty Start Date End Date Polo Pearce PA [address] [place] [address] PCP - General Internal Medicine 06/09/21 documented as of this encounter
--- OUTSIDE RECORDS SUMMARY | 2023-10-20 19:50 | XMS_ITS | Encounter Summary ---
Author Organization Replaced By [facility] [place] [address] Care Team Providers Care Warehouse Consultant Name Role Phone Polo Pearce Primary Care Provider [phone] Encounter Details Date Type Department Care Team (Late st Contact Info) Description 09/20/2023 [place] [phone] Vito Pearce MD [facility] [place] [address] Social History Tobacco Use Types Packs/Day Years Used Date Smoking Tobacco: Never Smokeless Tobacco: Never Alcohol Use Standard Drinks/Week Comments Never 0 (1 standard drink = 0.6 oz pur e alcohol) [facility] Utilities Answer Date Recorded In the past 12 months has [employer], gas, oil, or water [employer] threatened to shut off services in your [...] in a fpc (including now)? No 06/15/2023 Housing Stability Vital [...] were you homeless or living in a fpc (including now)? No 08/30/2023 DH IPV Inpatient [...] Referring provider: Jasen Montes MD Patient location: [facility] Past medical history: Microvascular disease; [...] oscillating regional function of the anterior wall. [facility] 04/2023 Coronary Angiography: Dominance: Right Left [...] AM EDT Hospital Encounter [place] [address] Mary Reyes [facility] [place] [address] 10/21/2023 11:30 AM EDT Appointment [place] [address] Mary Reyes [facility] [place] [address] 10/21/2023 12:30 PM EDT Appointment [place] [address] Mary Reyes [facility] [place] [address] 10/21/2023 1:30 PM EDT Appointment [place] [address] Mary Reyes [employer] [place] [address] 10/21/2023 2:30 PM EDT Appointment [place] [address] Mary Reyes [employer] [place] [address] 10/26/2023 4:00 PM EDT Office Visit Cardiology at [address] [phone] Jaspreet Kinsey MD [facility] [place] [address] 10/28/2023 9:00 AM EDT Office [place] [address] 10/29/2023 10:00 AM EDT Clinical [place] [address] 10/29/2023 10:15 AM EDT Procedure [place] [address] 11/01/2023 5:00 PM EDT Office [place] [address] Selene Browning, PhD [facility] [place] [address] 11/22/2023 4:40 PM EDT Office Visit Cardiology at [address] [address] Porsha Mcdaniels MD [facility] [place] [address] 12/13/2023 10:00 AM EDT Clinical [place] [phone] Lucero Romero, ALVA [facility] [place] [address] documented as of this encounter Visit Diagnoses Not on filedocumented in this encounter Care Teams Warehouse Consultant Relationship Specialty Start Date End Date Polo Pearce PA [address] [place] [address] PCP - General Internal Medicine 06/09/21 documented as of this encounter
--- OUTSIDE RECORDS SUMMARY | 2023-10-20 19:51 | XMS_ITS | Encounter Summary ---
Author Organization [facility] [place] [address] Care Team Providers Care Supervisor Offset Plate Preparation Name Role Phone Polo Pearce Primary Care Provider [phone] Encounter Details Date Type Department Care Team [...] AM EDT Hospital Encounter [place] [address] Mary Reyes HR REPRESENTATIVE [facility] [place] [address] 10/21/2023 11:30 AM EDT Appointment [place] [address] Mary Reyes HR REPRESENTATIVE [facility] [place] [address] 10/21/2023 12:30 PM EDT Appointment [place] [address] Mary Reyes HR REPRESENTATIVE [facility] [place] [address] 10/21/2023 1:30 PM EDT Appointment [place] [phone] Mary Reyes HR REPRESENTATIVE [facility] [place] [address] 10/21/2023 2:30 PM EDT Appointment [place] [phone] Mary Reyes HR REPRESENTATIVE [facility] [place] [address] 10/26/2023 4:00 PM EDT Office Visit Cardiology at [address] [phone] Jaspreet Kinsey MD [facility] [place] [address] 10/28/2023 9:00 AM EDT Office Visit [place] [address] 10/29/2023 10:00 AM EDT Clinical Support [place] [address] 10/29/2023 10:15 AM EDT Procedure visit [place] [address] 11/01/2023 5:00 PM EDT Office Visit [place] [phone] Selene Browning, PhD [facility] [place] [address] 11/22/2023 4:40 PM EDT Office Visit Cardiology at [address] [phone] Porsha Mcdaniels MD [facility] [place] [address] 12/13/2023 10:00 AM EDT Clinical Support [place] [address] Lucero Romero, ALVA [facility] [place] [address] documented as of this encounter Visit Diagnoses Not on filedocumented in this encounter Care Teams Supervisor Offset Plate Preparation Relationship Specialty Start Date End Date Polo Pearce PA [facility] [address] [place] [address] PCP - General Internal Medicine 06/09/21 documented as of this encounter
--- OUTSIDE RECORDS SUMMARY | 2023-10-20 19:51 | XMS_ITS | Encounter Summary ---
Author Organization [facility] Address [facility] [place] [address] Care Team Providers Care Enrollment Manager Name Role Phone Polo Pearce Primary Care Provider [phone] Encounter Details Date Type Department Care Team (Late st Contact Info) Description 08/28/2023 1:05 PM EDT Ancillary Procedure [place] [address] Jaspreet Kinsey MD [facility] [place] [address] Social History Tobacco Use Types Packs/Day Years Used Date Smoking Tobacco: Never Smokeless Tobacco: Never Alcohol Use Standard Drinks/Week Comments Never 0 (1 standard drink = 0.6 oz pur e alcohol) [facility] Utilities Answer Date Recorded In the past 12 months has [employer], gas, oil, or water [employer] threatened to shut off services in your [...] AM EDT Hospital Encounter [place] [address] [place] [address] 10/21/2023 11:30 AM EDT Appointment [place] [address] Mary Reyes APRN [facility] [place] [address] 10/21/2023 12:30 PM EDT Appointment [place] [address] Mary Reyes APRN [facility] [place] [address] 10/21/2023 1:30 PM EDT Appointment [place] [address] Mary Reyes, [place] [address] 10/21/2023 2:30 PM EDT Appointment [place] [address] Mary Reyes, [place] [address] 10/26/2023 4:00 PM EDT Office Visit Cardiology at [address] [phone] Jaspreet Kinsey MD [facility] [place] [address] 10/28/2023 9:00 AM EDT Office [place] [address] 10/29/2023 10:00 AM EDT Clinical [place] [address] 10/29/2023 10:15 AM EDT Procedure [place] [address] 11/01/2023 5:00 PM EDT Office Visit [place] [phone] Selene Browning, PhD [facility] [place] [address] 11/22/2023 4:40 PM EDT Office Visit Cardiology at [address] [address] Porsha Mcdaniels MD [facility] [place] [address] 12/13/2023 10:00 AM EDT Clinical [place] [address] [facility] [place] [address] documented as of this encounter Procedures Procedure Name Priority Date/Time Associated Diagnosis Comments FILM LIBRARY STORAGE ONLY CT CHEST Routine 08/28/2023 1:00 PM EDT documented in this encounter Results * Film Library- Storage Only CT Chest (08/28/2023 1:00 PM EDT) Narrative [facility] - 08/28/2023 1:00 PM EDT This exam is auto-finalizing. It's purpose is for storage only. Jaspreet Kinsey MD IMG FILM LIBRARY ORD ERABLES [place], [place] documented in this encounter Visit Diagnoses Not on filedocumented in this encounter Care Teams Enrollment Manager Relationship Specialty Start Date End Date Polo Pearce PA [address] [place] [address] PCP - General Internal Medicine 06/09/21 documented as of this encounter
--- OUTSIDE RECORDS SUMMARY | 2023-10-20 19:51 | XMS_ITS | Encounter Summary ---
Author Organization Formerly [facility] [place] [address] Care Team Providers Care Cyber Incident Responder Name Role Phone Polo Pearce Primary Care Provider [phone] Reason for Referral * Diagnostic Test (Routine) - Closed Specialty Diagnoses / Procedures Referred By Contac t Referred To Contact Radiology Diagnoses Chest pain, unspecified type Procedures NM PET CT Cardiac Pharmacologic Stress CT Component Porsha Mcdaniels MD [facility] [address] [place] [address] Referral ID Status Reason Start Date Expiration Date V isits Requested Visits Authorized [id number] Closed Specialty Service Requested 08/03/2023 10/01/2023 1 1 * Diagnostic Test (Routine) - Closed Specialty Diagnoses / Procedures Referred By Contac t Referred To Contact Radiology Diagnoses Chest pain, unspecified type Procedures NM PET CT Cardiac Pharmacologic Stress and Rest Porsha Mcdaniels MD [facility] [place] [address] [place] [address] Referral ID Status Reason Start Date Expiration Date V isits Requested Visits Authorized [id number] Closed Specialty Service Requested 08/03/2023 10/01/2023 1 1 Reason for Visit * Diagnostic Test (Routine) - Closed Specialty Diagnoses / Procedures Referred By Contac t Referred To Contact Radiology Diagnoses Chest pain, unspecified type Procedures NM PET CT Cardiac Pharmacologic Stress and Rest Porsha Mcdaniels MD [facility] [place] [address] [place] [address] Referral ID Status Reason Start Date Expiration Date V isits Requested Visits Authorized [id number] Closed Specialty Service Requested 08/03/2023 10/01/2023 1 1 Encounter Details Date Type Department Care Team (Latest Contact Info) Description 08/17/2023 11:52 AM EDT Hospital Encounter [place] [address] Porsha Mcdaniels MD [facility] [place] [address] Chest pain, unspecified type Discharge Disposition: Home Social History Tobacco Use Types Packs/Day Years Used Date Smoking Tobacco: Never Smokeless Tobacco: Never Alcohol Use Standard Drinks/Week Comments Never 0 (1 standard drink = 0.6 oz pur e alcohol) [facility] Utilities Answer Date Recorded In the past 12 months has [employer], gas, oil, or water company threatened [...] as needed. fluticasone propionate (FLONASE) 50 mcg/actuation [place], Suspension 1 spray by Each Nare route [...] AM EDT Hospital Encounter [place] [address] Mary Reyes [facility] [address] 10/21/2023 11:30 AM EDT Appointment [place] [address] Mary Reyes [facility] [place] [address] 10/21/2023 12:30 PM EDT Appointment [place] [address] Mary Reyes [facility] [place] [address] 10/21/2023 1:30 PM EDT Appointment [place] [address] Mary Reyes [facility] [place] [address] 10/21/2023 2:30 PM EDT Appointment [place] [address] [place] [address] 10/26/2023 4:00 PM EDT Office Visit Cardiology at [address] [address] Jaspreet Kinsey MD [facility] [place] [address] 10/28/2023 9:00 AM EDT Office Visit [place] [address] 10/29/2023 10:00 AM EDT Clinical Support [place] [address] 10/29/2023 10:15 AM EDT Procedure visit [place] [address] 11/01/2023 5:00 PM EDT Office [place] [phone] Selene Browning, PhD [facility] [place] [address] 11/22/2023 4:40 PM EDT Office Visit Cardiology at [address] [phone] Porsha Mcdaniels MD [facility] [place] [address] 12/13/2023 10:00 AM EDT Clinical [place] [address] [facility] [place] [address] documented as of this encounter Procedures Procedure [...] CT Component (08/17/2023 2:38 PM EDT) Pathologist [employer] WORKSTATION ID [id number] [facility] Anatomical Region Laterality Modality Positron Emissio [...] questions please contact the health health care / medical job titles that requested your imaging first. ? Electronically signed by: Clay Stanton MD, [facility] ([phone]), at 08/18/2023 2:49 PM Narrative 08/18/2023 2:49 [...] Coronary calcifications. Bilateral ground glass opacities are [id number] Procedure Note Clay Stanton MD - 08/18/2023 EXAMINATION: MI PET CT CARDIAC PHARMACOLOGIC STRESS AND REST, MI PET CTCARDIAC PHARMACOLOGIC STRESS CT COMPONENT CLINICAL [...] Coronary calcifications. Bilateral ground glass opacities are [id number] IMPRESSION Moderate-sized scar in the apical septum [...] have questions please contactthe health health care / medical job titles that requested your imaging first. Electronically signed by: Clay Stanton MD, [facility]([phone]), at 08/18/2023 2:49 PM Porsha Mcfarlane MD [facility] PET ORDERABLES * NM PET CT Cardiac Pharmacologic Stress and Rest (08/17/2023 2:38 PM EDT) WORKSTATION ID [id number] [facility] Anatomical Region Laterality Modality Positron Emissio [...] questions please contact the health health care / medical job titles that requested your imaging first. ? Electronically signed by: Clay Stanton MD, [facility] ([phone]), at 08/18/2023 2:49 PM Narrative 08/18/2023 2:49 [...] Coronary calcifications. Bilateral ground glass opacities are [id number] Procedure Note Clay Stanton MD - 08/18/2023 EXAMINATION: MI PET CT CARDIAC PHARMACOLOGIC STRESS AND REST, MI PET CTCARDIAC PHARMACOLOGIC STRESS CT COMPONENT CLINICAL [...] Coronary calcifications. Bilateral ground glass opacities are [id number] IMPRESSION Moderate-sized scar in the apical septum [...] have questions please contactthe health health care / medical job titles that requested your imaging first. Electronically signed by: Clay Stanton MD, [facility]([phone]), at 08/18/2023 2:49 PM Porsha Mcfarlane MD [...] Arm documented in this encounter Care Teams Cyber Incident Responder Relationship Specialty Start Date End Date Polo Pearce PA [address] [place] [address] PCP - General Internal Medicine 06/09/21 documented as of this encounter
--- OUTSIDE RECORDS SUMMARY | 2023-10-20 19:51 | XMS_ITS | Encounter Summary ---
Author Organization [facility] Address [facility] [place] [address] Care Team Providers Care Pharmaceutical Representative Name Role Phone Polo Pearce Primary Care Provider [phone] Encounter Details Date Type Department Care Team [...] AM EDT Hospital Encounter [place] [address] Mary Reyes DIRECTOR OF MIDWIFERY/STAFF MIDWIFE [facility] [place] [address] 10/21/2023 11:30 AM EDT Appointment [place] [address] Mary Reyes DIRECTOR OF MIDWIFERY/STAFF MIDWIFE [facility] [place] [address] 10/21/2023 12:30 PM EDT Appointment [place] [address] Mary Reyes DIRECTOR OF MIDWIFERY/STAFF MIDWIFE [facility] [place] [address] 10/21/2023 1:30 PM EDT Appointment [place] [address] Mary Reyes DIRECTOR OF MIDWIFERY/STAFF MIDWIFE [facility] [place] [address] 10/21/2023 2:30 PM EDT Appointment [place] [address] Mary Reyes DIRECTOR OF MIDWIFERY/STAFF MIDWIFE [facility] [place] [address] 10/26/2023 4:00 PM EDT Office Visit Cardiology at [address] [phone] Jaspreet Kinsey MD [facility] [place] [address] 10/28/2023 9:00 AM EDT Office Visit [place] [address] 10/29/2023 10:00 AM EDT Clinical Support [place] [address] 10/29/2023 10:15 AM EDT Procedure visit [place] [address] 11/01/2023 5:00 PM EDT Office [place] [phone] Selene Browning, PhD [facility] [place] [address] 11/22/2023 4:40 PM EDT Office Visit Cardiology at [address] [phone] Porsha Mcdaniels MD [facility] [place] [address] 12/13/2023 10:00 AM EDT Clinical [place] [address] Lucero Romero, [place] [place] [address] documented as of this encounter Visit Diagnoses Not on filedocumented in this encounter Care Teams Pharmaceutical Representative Relationship Specialty Start Date End Date Polo Pearce PA [facility] [address] [place] [address] PCP - General Internal Medicine 06/09/21 documented as of this encounter
--- OUTSIDE RECORDS SUMMARY | 2023-10-20 19:51 | XMS_ITS | Encounter Summary ---
Author Organization [facility] [place] [address] Care Team Providers Care Leather Drier Name Role Phone Polo Pearce Primary Care Provider [phone] Encounter Details Date Type Department Care Team (Late st Contact Info) Description 07/13/2023 Telephone Cardiology at [address] [phone] Sydney Gamez RN Social History Tobacco Use [...] [email or web address] when completed. Will forward to her providers [...] appointments: During 8am-5pm Wednesday through Wednesday call [phone] to speak with a nurse in the cardiology clinic All other times call [phone] and ask to speak to the psychologist private practice vocational coordinator. Return to work: One week Driving: No driving for 48 hours after catheterization. Follow up Appointments: PCP JOCY Franco [phone] 11:30am on July 19. Cardiology office will [...] AM EDT Hospital Encounter [place] [address] [place] [address] 10/21/2023 11:30 AM EDT Appointment [place] [address] [place] [address] 10/21/2023 12:30 PM EDT Appointment [place] [address] [place] [address] 10/21/2023 1:30 PM EDT Appointment [place] [address] [place] [address] 10/21/2023 2:30 PM EDT Appointment [place] [address] [place] [address] 10/26/2023 4:00 PM EDT Office Visit Cardiology at [address] [place] [address] Jaspreet Kinsey MD [facility] [place] [address] 10/28/2023 9:00 AM EDT Office [place] [address] 10/29/2023 10:00 AM EDT Clinical [place] [address] 10/29/2023 10:15 AM EDT Procedure [place] [address] 11/01/2023 5:00 PM EDT Office Visit [place] [address] Selene Browning, PhD [facility] [address] 11/22/2023 4:40 PM EDT Office Visit Cardiology at [address] [phone] Porsha Mcdaniels MD [facility] [place] [address] 12/13/2023 10:00 AM EDT Clinical Support [place] [address] [facility] [place] [address] documented as of this encounter Visit Diagnoses Not on filedocumented in this encounter Care Teams Leather Drier Relationship Specialty Start Date End Date Polo Pearce PA [address] [place] [address] PCP - General Internal Medicine 06/09/21 documented as of this encounter
--- OUTSIDE RECORDS SUMMARY | 2023-10-20 19:51 | XMS_ITS | Encounter Summary ---
Author Organization [facility] Address [facility] [place] [address] Care Team Providers Care Tunnel Form Placing Supervisor Name Role Phone Polo Pearce Primary Care Provider [phone] Reason for Visit * Reason Comments Congestive Heart Failure Atrial Fibrillation Encounter Details Date Type Department Care Team (Late st Contact Info) Description 07/26/2023 3:20 PM EDT Office Visit Cardiology at [address] [address] Jaspreet Kinsey MD [facility] [place] [address] Heart failure with preserved ejection fraction, unspecified HF chronicity; Paroxysmal atrial fibrillation; SVT (supraventricular tachycardia); Chest pain, unspecified type Social History Tobacco Use Types Packs/Day Years Used Date Smoking Tobacco: Never Smokeless Tobacco: Never Alcohol Use Standard Drinks/Week Comments Never 0 (1 standard drink = 0.6 oz pur e alcohol) [facility] Utilities Answer Date Recorded In the [...] Failure Atrial Fibrillation HPI Last seen by dc 05/2023, at which time the comprehensive cardiac [...] Oral, DAILY fluticasone propionate (FLONASE) 50 mcg/actuation [place], Suspension 1 spray, Each Nare, PRN gabapentin [...] preserved ejection fraction 05/2021: subacute, presented to [facility] with RUQ pain, weight gain, and [...] sarcoid. Anterior scar pattern 06/2023: [facility] TTE with low-normal EF, though anterior [...] AM EDT Hospital Encounter [place] [address] [place] [address] 10/21/2023 11:30 AM EDT Appointment [place] [address] Mary Reyes [facility] [place] [address] 10/21/2023 12:30 PM EDT Appointment [place] [address] Mary Reyes [facility] [place] [address] 10/21/2023 1:30 PM EDT Appointment [place] [address] Mary Reyes [facility] [place] [address] 10/21/2023 2:30 PM EDT Appointment [place] [address] Mary Reyes [facility] [place] [address] 10/26/2023 4:00 PM EDT Office Visit Cardiology at [address] [phone] Jaspreet Kinsey MD [facility] [place] [address] 10/28/2023 9:00 AM EDT Office [place] [address] 10/29/2023 10:00 AM EDT Clinical [place] [address] 10/29/2023 10:15 AM EDT Procedure [place] [address] 11/01/2023 5:00 PM EDT Office [place] [address] Selene Browning, PhD [facility] [place] [address] 11/22/2023 4:40 PM EDT Office Visit Cardiology at [address] [phone] Porsha Mcdaniels MD [facility] [place] [address] 12/13/2023 10:00 AM EDT Clinical [place] [address] [facility] [place] [address] documented as of this encounter Visit Diagnoses Diagnosis Heart failure with preserved ejection fraction, unspecified HF chronicity Paroxysmal atrial fibrillation Atrial fibrillation SVT (supraventricular tachycardia) Other specified cardiac dysrhythmias Chest pain, unspecified type documented in this encounter Care Teams Tunnel Form Placing Supervisor Relationship Specialty Start Date End Date Polo Pearce PA [address] [place] [address] PCP - General Internal Medicine 06/09/21 documented as of this encounter
--- OUTSIDE RECORDS SUMMARY | 2023-10-20 19:51 | XMS_ITS | Encounter Summary ---
Author Organization Formerly [facility] [place] [address] Care Team Providers Care Management Trainee Program Stores Name Role Phone Polo Pearce Primary Care Provider [phone] Encounter Details Date Type Department Care Team (Late st Contact Info) Description 08/28/2023 [place] [phone] [place] [address] Social History Tobacco Use Types Packs/Day Years Used Date Smoking Tobacco: Never Smokeless Tobacco: Never Alcohol Use Standard Drinks/Week Comments Never 0 (1 standard drink = 0.6 oz pur e alcohol) [facility] Utilities Answer Date Recorded In the past 12 months has [employer], gas, oil, or water [employer] threatened to shut off services in [...] a slight decrease in LV systolic function. [facility] 04/2023 Coronary Angiography: Dominance: Right Left [...] AM EDT Hospital Encounter [place] [address] [place] [address] 10/21/2023 11:30 AM EDT Appointment [place] [address] [place] [address] 10/21/2023 12:30 PM EDT Appointment [place] [address] [place] [address] 10/21/2023 1:30 PM EDT Appointment [place] [address] [place] [address] 10/21/2023 2:30 PM EDT Appointment [place] [address] [place] [address] 10/26/2023 4:00 PM EDT Office Visit Cardiology at [address] [place] [address] Jaspreet Kinsey MD [facility] [place] [address] 10/28/2023 9:00 AM EDT Office [place] [address] 10/29/2023 10:00 AM EDT Clinical [place] [address] 10/29/2023 10:15 AM EDT Procedure [place] [address] 11/01/2023 5:00 PM EDT Office Visit Gastroenterology at [place] [phone] Selene Browning, PhD [facility] [place] [address] 11/22/2023 4:40 PM EDT Office Visit Cardiology at [address] [phone] Porsha Mcdaniels MD [facility] [place] [address] 12/13/2023 10:00 AM EDT Clinical [place] [phone] [facility] [place] [place] [address] documented as of this encounter Visit Diagnoses Not on filedocumented in this encounter Care Teams Management Trainee Program Stores Relationship Specialty Start Date End Date Polo Pearce PA [address] [place] [address] PCP - General Internal Medicine 06/09/21 documented as of this encounter
--- OUTSIDE RECORDS SUMMARY | 2023-10-20 19:51 | XMS_ITS | Encounter Summary ---
Author Organization [facility] [place] [address] Care Team Providers Care Marketing Officer Name Role Phone Polo Pearce Primary Care Provider [phone] Encounter Details Date Type Department Care Team (Late st Contact Info) Description 08/28/2023 External [place] [phone] Social History Tobacco Use Types Packs/Day Years Used Date Smoking Tobacco: Never Smokeless Tobacco: Never Alcohol Use Standard Drinks/Week Comments Never 0 (1 standard drink = 0.6 oz pur e alcohol) [facility] Utilities Answer Date Recorded In [...] any time in the past 12 m [facility], were you homeless or living in a [...] AM EDT Hospital En[place] [address] Mary Reyes INPATIENT [facility] [place] [place] [address] 10/21/2023 11:30 AM EDT Appointment [place] [address] Mary Reyes INPATIENT [facility] [place] [address] 10/21/2023 12:30 PM EDT Appointment [place] [address] Mary Reyes INPATIENT [facility] [place] [address] 10/21/2023 1:30 PM EDT Appointment [place] [address] Mary Reyes [place] [address] 10/21/2023 2:30 PM EDT Appointment [place] [address] [place] [address] 10/26/2023 4:00 PM EDT Office Visit Cardiology at [address] [phone] Jaspreet Kinsey MD [facility] [place] [address] 10/28/2023 9:00 AM EDT Office [place] [address] 10/29/2023 10:00 AM EDT Clinical [place] [address] 10/29/2023 10:15 AM EDT Procedure [place] [address] 11/01/2023 5:00 PM EDT Office [place] [address] Selene Browning, PhD [facility] [address] 11/22/2023 4:40 PM EDT Office Visit Cardiology at [address] [phone] Porsha Mcdaniels MD [facility] [place] [address] 12/13/2023 10:00 AM EDT Clinical [place] [phone] [facility] [place] [address] documented as of this encounter Procedures Procedure Name Priority Date/Time Associated Diagnosis Comments ECG SCAN Routine 08/28/2023 11:53 AM EDT documented in this encounter Results * Scan Doc: ECG (08/28/2023 11:53 AM EDT) Historical Provider MD FLEMING MGTalia SCAN EX T ORDR/RSLT documented in this encounter Visit Diagnoses Not on filedocumented in this encounter Care Teams Marketing Officer Relationship Specialty Start Date End Date Polo Pearce PA [address] [place] [address] PCP - General Internal Medicine 06/09/21 documented as of this encounter
--- OUTSIDE RECORDS SUMMARY | 2023-10-20 19:51 | XMS_ITS | Encounter Summary ---
[place] [address] Care Team Providers Care Filter Helper Name Role Phone Polo Pearce Primary Care Provider [phone] Reason for Visit * Auth/Cert (Routine) Specialty Diagnoses / Procedures Referred By Jayant harris Referred To Contact Diagnoses NSTEMI (non-ST elevated myocardial infarction) NSTEMI Procedures EMERGENCY [place] [address] [facility] Referral ID Status Reason Start Date Expiration Date Visits Re quested Visits Authorized [id number] 1 1 Encounter Details Date Type Department Care Team (Latest Contact Info) Description 08/25/2023 1:05 PM EDT Laboratory Appointment Lab [address] [place] [phone] Heart failure with preserved ejection fraction, unspecified [...] Recorded In the past 12 months has yoone electric, gas, oil, or water company threatened [...] in a fci (including now)? No 06/15/2023 DH IPV Inpatient [...] AM EDT Hospital [place] [address] Mary Reyes APRN [facility] [place] [address] 10/21/2023 11:30 AM EDT Appointment [place] [phone] Mary Reyes [facility] [place] [address] 10/21/2023 12:30 PM EDT Appointment [place] [address] Mary Reyes [facility] [place] [address] 10/21/2023 1:30 PM EDT Appointment [place] [address] Mary Reyes [facility] [place] [address] 10/21/2023 2:30 PM EDT Appointment [place] [address] [place] [address] 10/26/2023 4:00 PM EDT Office Visit Cardiology at [address] [phone] Jaspreet Kinsey MD [facility] [place] [address] 10/28/2023 9:00 AM EDT Office [place] [address] 10/29/2023 10:00 AM EDT Clinical [place] [address] 10/29/2023 10:15 AM EDT Procedure [place] [address] 11/01/2023 5:00 PM EDT Office [place] [phone] Selene Browning, PhD [facility] [place] [address] 11/22/2023 4:40 PM EDT Office Visit Cardiology at [address] [phone] Porsha Mcdaniels MD [facility] [place] [address] 12/13/2023 10:00 AM EDT Clinical [place] [phone] [facility] [place] [address] documented as of this encounter Procedures Procedure Name Priority Date/Time Associated Diagnosis Comments IMMUNOGLOBULIN FREE LIGHT CHAINS, SERUM Routine 08/25/2023 11:28 AM EDT Heart failure with preserved ejection fraction, unspecified HF chronicity LYME IGG & IGM ANTIBODY Routine 08/25/19 11:28 AM EDT Heart failure with preserved ejection fraction, unspecified HF chronicity IRON AND TIBC Routine 08/25/2023 11:28 AM EDT Heart failure with preserved ejection fraction, unspecified HF chronicity TISSUE TRANSGLUTAMINASE, IGA Routine 08/25/2023 11:28 AM EDT Altered bowel function Depression, unspecified depression type STREPTOCOCCAL ANTIBODY PANEL Routine 08/25/2023 11:28 AM EDT Heart failure with preserved ejection fraction, unspecified HF chronicity HC DNA AB DS ([place]) Routine 08/25/2023 11:28 AM EDT Heart failure with preserved ejection fraction, unspecified HF chronicity HC SERUM PROT. ELECTROPHORESIS Routine 08/25/2023 11:28 AM EDT Heart failure with preserved ejection fraction, unspecified HF chronicity IGA Routine 08/25/2023 11:28 AM EDT Altered bowel function Depression, unspecified depression type IGG Routine 08/25/2023 11:28 AM EDT Altered bowel function Depression, unspecified depression type FERRITIN Routine 08/25/2023 11:28 AM EDT Heart failure with preserved ejection fraction, unspecified HF chronicity BASIC METABOLIC PANEL Routine 08/25/2023 11:28 AM EDT Chronic kidney disease, unspecified CKD stage documented in this encounter Results * IgA (08/25/2023 11:28 AM EDT) IgA 372 70 - 400 mg/dL [facility] Blood 08/25/2023 11:2 8 AM EDT 08/25/2023 11:37 AM EDT Narrative Resulting Agency Comment Spec In Lab Mary Reyes APRN CHEMISTRY ORDERABL ES Performing Organization Address [facility]/ZIP Co de Phone Number [facility] [place] [address] * IgG (08/25/2023 11:28 AM EDT) Immunoglobulin G 1,114 700 - 1,600 mg/dL [facility] Comment: Pediatric Reference Intervals obtained from the Caliper Reference Interval project. http://www.sickkids.ca/caliperproject/index.html Blood 08/25/2023 11:2 8 AM EDT 08/25/2023 11:37 AM EDT Narrative Resulting Agency Comment Spec In Lab Mary Reyes APRN CHEMISTRY ORDERABL ES [facility] [place] [address] * Tissue transglutaminase, IgA (08/25/2023 11:28 AM EDT) Pathologist [facility] TTG IgA Ab 0.6 <=10.0 u/ml [facility] Comment: Negative: ??<7 units/mL Indeterminate: 7-10 units/mL Positive: ??>10 units/mL Blood 08/25/2023 11:2 8 AM EDT 08/26/2023 7:26 AM EDT Narrative Resulting Agency Comment Spec In Lab Mary Reyes BILINGUAL RECEPTIONIST IMMUNOLOGY ORDERAB LES [facility] [place] [address] * (ABNORMAL) Basic Metabolic Panel (non-fasting) (08/25/2023 11:28 AM EDT) [facility] Glucose 111 65 - 199 mg/dL [facility] Comment:Diabetes: >=200 mg/d L plus symptoms Blood Urea Nitrogen 29(H) 8 - 18 mg/dL [facility] Creatinine 1.41(H) 0.70 - 1.20 mg/dL [facility] Sodium 140 135 - 145 mmol/L [facility] Potassium 3.6 3.5 - 5.0 mmol/L [facility] Comment: Please note: ??Patients with WBC >100,000 may have falsely elevated Potassium levels. ??For accurate Potassium quantification in these patients send serum separator tube (gold top) for subsequent determinations. ??Contact the Clinical Chemistry Laboratory if there are any questions. Chloride 99 98 - 107 mmol/L [facility] Carbon Dioxide 29 22 - 31 mmol/L [facility] Anion Gap 12 5 - 15 mmol/L [facility] Calcium 10.0 8.5 - 10.5 mg/dL [facility] Est Glomerular Filtration Rate 44(L) >=60 mL/min/1. 73 m?? [facility] Comment: This patient's estimated GFR [...] In Lab Lloyd Keating MD CHEMISTRY ORDERABLES [facility] [place] [address] * KATHRINE Antibody Screen (08/25/2023 11:28 AM EDT) KATHRINE Ab Screen Negative Negative [facility] Comment: This antinuclear antibody (KATHRINE) screen is a qualitative test performed using a fluoroenzyme immunoassay on the [employer]ia 250 analyzer. This screen is designed to detect antibodies to U1RNP, SS-A/Ro, SS-B/La, centromere B, Scl-70, Dsaia-1, and Sm(Alcantar) proteins in serum samples. Antibodies to other nuclear antibodies will not be detected with this assay. This KATHRINE screen is also performed in concert with a quantitative for IgG antibodies to dsDNA. dsDNA Ab 1.0 <=15.0 IU/mL [facility] Comment: <10 negative 10-15 equivocal >15 positive This dsDNA antibody result was generated using a fluoroenzyme immunoassay on the [employer]iencedia 250 analyzer. This quantitative test is designed to detect IgG antibodies directed against double stranded DNA in human serum. The presence of antibodies that recognize dsDNA is a highly specific marker for systemic lupus erythematosus. Please note that as of 12/30/2021 that this testing is performed by [place] [facility] [place] [facility] This change in testing location is associated with a change is testing method and reference intervals. Please review the results of this test in association with the posted reference intervals. Blood 08/25/2023 11:2 8 AM EDT 08/26/2023 7:26 AM EDT Narrative Resulting Agency Comment Spec In Lab Jaspreet Kinsey MD LAB SEND OUT ORDERAB LES Performing Organization Address [facility] Co de Phone Number [facility] [place] [address] * (ABNORMAL) Protein Electrophoresis, serum (08/25/2023 11:28 AM EDT) Pathologist [facility] Total Prot Electrophoresis 7.5 6.1 - 8.0 g/dL [facility] Albumin Electrophoresis 4.62 3.20 - 5.20 g/dL [facility] Alpha 1 Globulin 0.20 0.10 - 0.30 g/dL [facility] Alpha 2 Globulin 0.92(H) 0.40 - 0.90 g/dL [facility] Beta Globulin 0.89 0.50 - 1.00 g/dL [facility] Gamma Globulin 0.88 0.50 - 1.30 g/dL [facility] M1 Band None Detected None Detected [facility] Blood 08/25/2023 11:2 8 AM EDT 08/25/2023 11:37 AM EDT Narrative Resulting Agency Comment Spec In Lab Jaspreet Kinsey MD CHEMISTRY ORDERABLES Performing Organization Address [facility] de Phone Number [facility] [place] [address] * (ABNORMAL) Free Light Chains, Serum (08/25/2023 11:28 AM EDT) [place] Free Light Chain 3.09(H) 0.72 - 2.75 mg/dL [facility] Lambda Free Light Chain 1.65 0.57 - 2.15 mg/dL [facility] [place]/Lambda FLC Ratio 1.8727 0.4000 - 2.5800 [facility] Blood 08/25/2023 11:2 8 AM EDT 08/25/2023 11:36 AM EDT Narrative Resulting Agency Comment Spec In Lab Jaspreet Kinsey MD CHEMISTRY ORDERABLES Performing Organization Address City/[facility]/ZIP Co de Phone Number [facility] [place] [address] * Iron and TIBC (08/25/2023 11:28 AM EDT) Iron 113 30 - 150 mcg/dL [facility] TIBC 338 250 - 450 mcg/dL [facility] Iron Saturation 33 20 - 50 % [facility] Blood 08/25/2023 11:2 8 AM EDT 08/25/2023 11:36 AM EDT Narrative Resulting Agency Comment Spec In Lab Jaspreet Kinsey MD CHEMISTRY ORDERABLES Performing Organization Address [facility]/ZIP Co de Phone Number [facility] [place] [address] * Ferritin (08/25/2023 11:28 AM EDT) Ferritin 110 11 - 328 ng/mL [facility] Comment: Please note that as of 02/10/2023, the reference intervals for Ferritin have been updated. Blood 08/25/2023 11:2 8 AM EDT 08/25/2023 11:37 AM EDT Narrative Resulting Agency Comment Spec In Lab Jaspreet Kinsey MD CHEMISTRY ORDERABLES Performing Organization Address City/[facility]/ZIP Co de Phone Number [facility] [place] [address] * Lyme IgG & IgM Antibody (08/25/2023 11:28 AM EDT) Lyme Antibody Negative Negative [facility] Lyme Ab Comment Negative result does not exclude possibility of infection. [facility] Comment: Please note that as of 07/14/2022 that this testing is performed by the [facility] [place] [facility] This change in testing location is associated with a change in testing methodology. Blood 08/25/2023 11:2 8 AM EDT 08/26/2023 7:26 AM EDT Narrative Resulting Agency Comment Spec In Lab Jaspreet Kinsey MD IMMUNOLOGY ORDERABLE S Performing Organization Address [facility] Co de Phone Number [facility] [place] [address] * Streptococcal Antibody Panel (08/25/2023 11:28 AM EDT) Pathologist [facility] Aso Titer (JULY) 25 0 - 530 IU/mL [facility] Comment: Test Performed by: [facility] [place] [address] Php Lamp Developer: Nellie Haney Ph.D.; CLIA# [id number] Dnase B Ab (JULY) 146 0 - 300 unit/mL [facility] Comment: Test Performed by: [facility] [place] [address] Php Lamp Developer: Nellie Haney Ph.D.; CLIA# [id number] Blood 08/25/2023 11:2 8 AM EDT 08/25/2023 1:02 PM EDT Narrative Resulting Agency Comment Spec In Lab Jaspreet Kinsey MD LAB SEND OUT ORDERAB LES Performing Organization Address [facility] Co de Phone Number [facility] [place] [address] documented in this encounter Visit Diagnoses Diagnosis Heart failure with preserved ejection fraction, unspecified HF chronicity Chronic kidney disease, unspecified CKD stage Altered bowel function Other symptoms involving digestive system Depression, unspecified depression type documented in this encounter Care Teams Filter Helper Relationship Specialty Start Date End Date Polo Pearce PA Sb [address] [place] [address] PCP - General Internal Medicine 06/09/21 documented as of this encounter
--- OUTSIDE RECORDS SUMMARY | 2023-10-20 19:51 | XMS_ITS | Encounter Summary ---
[place] [address] Care Team Providers Care Community Integration Specialist Name Role Phone Polo Pearce Primary Care Provider [phone] Reason for Referral * Consultation (Routine) - Authorized Specialty Diagnoses / Procedures Referred By Jayant harris Referred To Contact Cardiology Diagnoses NSTEMI (non-ST elevated myocardial infarction) [place] [address] Cardiac Rehab, [address] [address] Referral ID Status Reason Start Date Expiration Date Visits Requested Visits Authorized [id number] Authorized Consult, Test & Treat Non PCP 09/10/2023 2024 36 36 Reason for Visit * Auth/Cert (Routine) Specialty Diagnoses / Procedures Referred By Jayant harris Referred To Contact Diagnoses NSTEMI (non-ST elevated myocardial infarction) NSTEMI Procedures EMERGENCY MICHELLEI [place] [address] [facility] Referral ID Status Reason Start Date Expiration Date Visits Re quested Visits Authorized [id number] 1 1 Encounter Details Date Type Department Care Team (Latest Contact Info) Description 08/28/2023 8:27 PM EDT - 09/10/2023 5:31 PM EDT Hospital Encounter Heart and Vascular Unit Level 3 Wing B at [place] [phone] Kia Angelo MD [facility] [place] [address] [place] [address] Eufemia Copeland MD [facility] [place] [address] [place] [address] Samantha Broussard MD [facility] [place] [address] [place] [address] Paresthesia of hand, bilateral; SVT (supraventricular tachycardia); [...] Recorded In the past 12 months has [employer] gas, oil, or water [employer] threatened to shut off services in your [...] any time in the past 12 m [facility], were you homeless or living in a mcc (including now)? No 08/30/2023 DH IPV Inpatient [...] Loida Madrigal Patient Age: 53 y.o. Language: Kosovan Race: [...] please contact your inpatient physician through the [facility] Lapping Machine Set Up Operator . Issues afterhours [...] 09/05/2023 4:25 PM) Result Value WORKSTATION ID [id number] Narrative EXAMINATION: CTA/CT ABDOMEN AND PELVIS W [...] who have questions please contact the health hearing healthcare practitioner that requested your imaging first. Electronically signed by: Lalitha Sanders MD, [facility] ([phone]), at 09/06/2023 9:47 AM TTE 08/29/23 Interpretation [...] treatment for possible ACS, and transfer to [facility] for further management. Prior [...] Administered Date(s) Administered Moderna Covid-19 Monovalent 12Yr+ (Data Entry 100mcg) 03/06/2020, 04/03/2020 Discharge Medications: Your Medications [...] weight gain + increasing shortness of breath. [id number] minutes prior to a dose of torsemide). [...] of 8AM-5PM please call the Cardiology Clinic [phone] to speak with a nurse. All other hours please call the Hospital Lapping Machine Set Up Operator [phone] and ask to speak to the cardiovascular hospitalist on-call. Follow up Appointments: Doctor Where Phone # Date Time PCP JOCY Franco [address] [place] [address] Please call to set up a follow up appointment. Cardiology Jaspreet Kinsey MD Cardiology at [place] Arrive at: [facility] [address] [phone] 10/26/2023 4:00 PM General Instructions None Future Appointments and Orders Future Appointments and Orders Future Appointments Provider Department Dept Phone 10/21/2023 10:30 AM [facility] ROOM 1 Nuclear Medicine at [facility] Arrive at: [facility] RAD[facility]Y [phone] Please do not eat or drink anything for at least 6 hours prior to your appointment. 10/21/2023 11:30 AM [facility] ROOM 1 Nuclear Medicine at [facility] Arrive at: [facility] [phone] Please do not eat or drink anything for at least 6 hours prior to your appointment. 10/21/2023 12:30 PM [facility] RO[facility] 1 Nuclear Medicine at [facility] Arrive at: [facility] [phone] Please do not eat or drink anything for at least 6 hours prior to your appointment. 10/21/2023 1:30 PM [facility] RO[facility] 1 Nuclear Medicine at [facility] Arrive at: [facility] RAD[facility] [phone] Please do not eat or drink anything for at least 6 hours prior to your appointment. 10/21/2023 2:30 PM [facility] RO[facility] 1 Nuclear Medicine at [facility] Arrive at: [facility] [phone] Please do not eat or drink anything for at least 6 hours prior to your appointment. 10/26/2023 4:00 PM Jaspreet Kinsey MD Cardiology at [place] Arrive at: [facility] [address] [phone] 10/28/2023 9:00 AM [facility] 2 Gastroenterology at [facility] Arrive at: Storage Battery Inspector Area 4T [phone] 10/29/2023 10:00 AM [facility] 2 Gastroenterology at [facility] Arrive at: Storage Battery Inspector Area 4T [phone] 10/29/2023 10:15 AM [facility] 2 Gastroenterology at [facility] Arrive at: Storage Battery Inspector Area 4T [phone] 11/22/2023 4:40 PM Porsha Mcdaniels MD Cardiology at [facility] Arrive at: Storage Battery Inspector Area 4A [phone] 12/13/2023 10:[address] Gastroenterology at [facility] Arrive at: Storage Battery Inspector Area Discharge References/Attachments None Greater than 30 minutes was spent on this discharge including documentation, [id number] time withthe patient, patient education, cut order hand, coordination with pharmacy and other patient care. [...] of 8AM-5PM please call the Cardiology Clinic [phone] to speak with a nurse. All other hours please call the Hospital Lapping Machine Set Up Operator [phone] and ask to speak to the cardiovascular hospitalist on-call. Follow up Appointments: Doctor Where Phone # Date Time PCP JOCY Franco Dr [address] [place] [address] Please call to set up a follow up appointment. Cardiology Jaspreet Kinsey MD Cardiology at [place] Arrive at: [facility] [address] [phone] 10/26/2023 4:00 PM documented in this encounter Medications at Time of Discharge Medication Sig Dispensed Refills Start Date End Date metoproloL tartrate (Lopressor) 25 mg tablet Take 1 tablet by mouth 2 times daily. 180 tablet 3 09/10/2023 omeprazole (PriLOSEC) 20 mg capsuleIndications:Elmer roesophageal reflux disease, unspecified whether esophagitis [...] as needed. fluticasone propionate (FLONASE) 50 mcg/actuation [place], Suspension 1 spray by Each Nare route [...] 4 hours as needed. Use with spacer potassium chloride ER (Klor-Con M) 20 mEq ER micro-encapsulated crystal tablet Take 2 tablets by mouth daily for 30 days. 60 tablet 09/10/2023 10/10/2023 documented as of this encounter Progress Notes [...] Center Cardiovascular Medicine CV HOSPITALIST 1 - [facility] DAILY PROGRESS NOTE Page [phone] to reach a provider 28/09 Admit Date: [...] (from the past 24 hour(s)). Assessment: Loida Mdarigal is a 53 y.o. female with a [...] hest pain, found to have transferred to [facility] for further management of [...] ointment Diet: Daily Healthy Menu Choices/Cardiac diet ([facility]-Diet) DVT Prophylaxis: DOAC Code status: Attempt Cardiopulmonary Resuscitation - Inpatient Disposition: Discharge Location: AM-[facility] Basic Mobility Raw Score: 19 PT: OT: PCP JOCY Franco [phone] Lloyd Keating MD 09/09/2023 * Florencia Ortez [...] Center Cardiovascular Medicine CV HOSPITALIST 1 - [facility] DAILY PROGRESS NOTE Page [phone] to reach a provider 28/09 Admit Date: [...] hest pain, found to have transferred to [facility] for further management of [...] ointment Diet: Daily Healthy Menu Choices/Cardiac diet ([facility]-Diet) DVT Prophylaxis: DOAC Code status: Attempt Cardiopulmonary Resuscitation - Inpatient Disposition: Discharge Location: AM-[facility] Basic Mobility Raw Score: 24 PT: OT: PCP JOCY Franco [phone] Lloyd Keating MD 09/08/2023 * Edith [place] [...] Center Cardiovascular Medicine CV HOSPITALIST 1 - [facility] DAILY PROGRESS NOTE Page [phone] to reach a provider 28/09 Admit Date: [...] hest pain, found to have transferred to [facility] for further management of [...] ointment Diet: Daily Healthy Menu Choices/Cardiac diet ([facility]-Diet) DVT Prophylaxis: DOAC Code status: Attempt Cardiopulmonary Resuscitation - Inpatient Disposition: Discharge Location: AM-[facility] Basic Mobility Raw Score: 24 PT: OT: PCP JOCY Franco [phone] Lloyd Keating MD 09/07/2023 * Dona Hanks [...] Center Cardiovascular Medicine CV HOSPITALIST 1 - [facility] DAILY PROGRESS NOTE Page [phone] to reach a provider 28/09 Admit Date: [...] hest pain, found to have transferred to [facility] for further management of [...] ointment Diet: Daily Healthy Menu Choices/Cardiac diet ([facility]-Diet) DVT Prophylaxis: DOAC Code status: Attempt Cardiopulmonary Resuscitation - Inpatient Disposition: Discharge Location: AM-[facility] Basic Mobility Raw Score: 24 PT: OT: PCP JOCY Franco [phone] Lloyd Keating MD 09/06/2023 * Channing Montanez [...] at OSH with chest pain, transferred to [facility] for further management of [...] Miscellaneous Lab request Result Value Ref Range [facility] Lab Result Request received in lab. [...] chest pain, found to have transferred to [facility] for further management of [...] ointment Diet: Daily Healthy Menu Choices/Cardiac diet ([facility]-Diet) DVT Prophlaxis: DOAC Code [...] screened for hospital length of stay and news writer met patient at bedside. Patient states thattheir [...] Orders Diet Daily Healthy Menu Choices/Cardiac diet ([facility]-Diet) Frequency: Effective Now [...] unless consulted in the interim. LORNA Berrios Rotary Kiln Operator * Samantha Broussard MD - 09/04/2023 8:35 [...] at OSH with chest pain, transferred to [facility] for further management of [...] found to have elevated NSTEMI, transferred to [facility] for further management of [...] ointment Diet: Daily Healthy Menu Choices/Cardiac diet ([facility]-Diet) DVT Prophlaxis: DOAC Code [...] found to have elevated NSTEMI, transferred to [facility] for further management of [...] ointment Diet: Daily Healthy Menu Choices/Cardiac diet ([facility]-Diet) DVT Prophlaxis: DOAC Code [...] found to have elevated NSTEMI, transferred to [facility] for further management of [...] neurontin Diet: Daily Healthy Menu Choices/Cardiac diet ([facility]-Diet) DVT Prophlaxis: DOAC Code [...] found to have elevated NSTEMI, transferred to [facility] for further management of [...] neurontin Diet: Daily Healthy Menu Choices/Cardiac diet ([facility]-Diet) DVT Prophlaxis: DOAC Code [...] 7:25 AM EDT CV HOSPITALIST 1 - [facility] DAILY PROGRESS NOTE Page [phone] to reach a provider 28/09 Admit Date: [...] found to have elevated NSTEMI, transferred to [facility] for further management of [...] duloxetine Diet: Daily Healthy Menu Choices/Cardiac diet ([facility]-Diet) DVT Prophlaxis: DOAC Code status: Attempt Cardiopulmonary Resuscitation - Inpatient Disposition: Discharge Planning: AM-PAC Basic Mobility Raw Score: 19 PT: OT: PCP JOCY Franco [phone] * Mary Castaneda RCP - 08/31/2023 5:18 [...] 9:11 PM EDT CV HOSPITALIST 1 - [facility] DAILY PROGRESS NOTE Page [phone] to reach a provider 28/09 Admit Date: [...] found to have elevated NSTEMI, transferred to [facility] for further management of [...] duloxetine Diet: Daily Healthy Menu Choices/Cardiac diet ([facility]-Diet) DVT Prophlaxis: DOAC Code status: Attempt Cardiopulmonary Resuscitation - Inpatient Disposition: Discharge Planning: AM-PAC Basic Mobility Raw Score: 19 PT: OT: PCP JOCY Franco [phone] * Neli Alcantar RN - 08/29/2023 3:25 [...] 7:07 AM EDT CV HOSPITALIST 1 - [facility] DAILY PROGRESS NOTE Page [phone] to reach a provider 28/09 Admit Date: [...] found to have elevated NSTEMI, transferred to [facility] for further management of [...] duloxetine Diet: Daily Healthy Menu Choices/Cardiac diet ([facility]-Diet) DVT Prophlaxis: heparin gtt Code status: Attempt Cardiopulmonary Resuscitation - Inpatient Disposition: Discharge Planning: AM-PAC Basic Mobility Raw Score: 19 PT: OT: PCP JOCY Franco [phone] documented in this encounter H&P Notes * [...] treatment for possible ACS, and transfer to [facility] for further management. Prior [...] 3.56) performed by Lashonda Villa MD at [facility] ENDOSCOPY PRO UPPER GI ENDOSCOPY, BIOPSY N/A 07/07/2023 EGD WITH BIOPSY (WRVU 2.39) performed by Lashonda Villa MD at [facility] ENDOSCOPY VS ARTERIOGRAM MESENTERIC VASCULAR SURGERY [...] as needed. 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 I had a long discussion with Lodia today regarding microvascular disease, the importance of [...] respiratory supplies, other (see comments) (BiPAP through [facility]) DME Needed at Discharge: No Patient is insured through: Primary Insurance: [employer] Pay[place] [employer] / Plan[place] / [...] Pt will be receiving Cardiac rehab at [facility] post discharge. D/c plan pending [...] in an outpatient cardiac rehabilitation program at [facility] was discussed. Patient agrees to [...] Admitted From: Transfer from another hospital Location: [facility] Reason for Hospitalization: overall not [...] homeless or living in a mcc (including now)?: No In the past 12 months has the electric, gas, oil, or water [employer] threatened to shut off services in your [...] respiratory supplies, other (see comments) (BiPAP through [facility]) Home Address [address] [address] Social & Family Supports: All names listed [...] Specific Information: N/A Health/Prescription Coverage: Primary Insurance: [employer]lo [place] Payor: Commutable [facility] [place] / Plan: [facility] [place] EXCHANGE / Product Type: *No Product type* / Secondary Insurance: N/A Prescription Coverage: Yes Preferred Pharmacy: [facility] [address] [place], [place] - [address] [facility] [address] [facility] [address] [facility] [place], [place] - [address] [facility] [address] [facility] [address] [facility] [address] [place] Status: Patient is a : No Primary Care Provider confirmed: JOCY Franco [phone] Patient/Caregiver Goals of Treatment: home when MR [...] [facility] [place] [address] INPATIENT CARDIOLOGY CONSULT NOTE Reason for Consult: Chest pain HPI: Loida Madrigal is a 53 y.o. obese female, history of non-obstructive CAD ([facility] 04/2023) with suspicion for microvascular dysfunction (PET [...] as Appropriate) * Plan of Care - Jayosn Menon RN - 08/28/2023 10:11 PM EDT [...] AM EDT Hospital Encounter [place] [phone] [place] [address] 10/21/2023 11:30 AM EDT Appointment [place] [phone] [place] [address] 10/21/2023 12:30 PM EDT Appointment [place] [phone] [place] [address] 10/21/2023 1:30 PM EDT Appointment [place] [phone] [place] [address] 10/21/2023 2:30 PM EDT Appointment [place] [phone] [place] [address] 10/26/2023 4:00 PM EDT Office Visit Cardiology at [address] [phone] Jaspreet Eddy MD [facility] [place] [address] 10/28/2023 9:00 AM EDT Office [place] [address] 10/29/2023 10:00 AM EDT Clinical Support [place] [address] 10/29/2023 10:15 AM EDT Procedure visit [place] [address] 11/01/2023 5:00 PM EDT Office Visit Gastroenterology at [place] [phone] Selene Browning, PhD [facility] [place] [address] 11/22/2023 4:40 PM EDT Office Visit Cardiology at [address] [phone] Porsha Mcdaniels MD [facility] [place] [address] 12/13/2023 10:00 AM EDT Clinical Support [place] [phone] [facility] [place] [address] Scheduled Orders Name Type Priority Associated Diagnoses [...] DIFFERENTIAL, AUTOMATED Routine 09/10/19 4:17 AM EDT CBC (WITH DIFF) Routine 09/10/2023 4:17 AM EDT MAGNESIUM Routine 09/10/2023 4:17 AM EDT BASIC METABOLIC PANEL Routine 09/10/2023 4:17 AM EDT HEMOGRAM Routine 09/09/2023 5:10 AM EDT DIFFERENTIAL, AUTOMATED Routine 09/09/19 5:10 AM EDT CBC (WITH DIFF) Routine 09/09/2023 5:10 AM EDT MAGNESIUM Routine 09/09/2023 5:10 AM EDT BASIC METABOLIC PANEL Routine 09/09/2023 5:10 AM EDT EKG 12-LEAD Routine 09/08/2023 4:01 AM EDT Paresthesia of hand, bilateral SVT (supraventricular tachycardia) Acute on chronic heart failure with preserved ejection fraction HEMOGRAM Routine 09/08/2023 2:22 AM EDT DIFFERENTIAL, AUTOMATED Routine 09/08/19 2:22 AM EDT CBC (WITH DIFF) Routine 09/08/2023 2:22 AM EDT MAGNESIUM Routine 09/08/2023 2:22 AM EDT BASIC METABOLIC PANEL Routine 09/08/2023 2:22 AM EDT HEMOGRAM Routine 09/07/2023 2:56 AM EDT DIFFERENTIAL, AUTOMATED Routine 09/07/19 2:56 AM EDT CBC (WITH DIFF) Routine 09/07/2023 2:56 AM EDT MAGNESIUM Routine 09/07/2023 2:56 AM EDT BASIC METABOLIC PANEL Routine 09/07/2023 2:56 AM EDT HEMOGRAM Routine 09/06/2023 2:44 AM EDT DIFFERENTIAL, AUTOMATED Routine 09/06/19 2:44 AM EDT CBC (WITH DIFF) Routine 09/06/2023 2:44 AM EDT MAGNESIUM Routine 09/06/2023 2:44 AM EDT BASIC METABOLIC PANEL Routine 09/06/2023 2:[address] ABDOMEN AND PELVIS W CONTRAST Routine 09/05/2023 4:25 PM EDT MISCELLANEOUS LAB REQUEST Routine 09/05/2023 1:58 AM EDT HEMOGRAM Routine 09/05/2023 1:58 AM EDT DIFFERENTIAL, AUTOMATED Routine 09/05/19 1:58 AM EDT IGG 4 Routine 09/05/2023 1:58 AM EDT CBC (WITH DIFF) Routine 09/05/2023 1:58 AM EDT MAGNESIUM Routine 09/05/2023 1:58 AM EDT BASIC METABOLIC PANEL Routine 09/05/2023 1:58 AM EDT BASIC METABOLIC PANEL Routine 09/04/2023 2:11 PM EDT POTASSIUM Routine 09/04/2023 9:13 AM EDT POTASSIUM Routine 09/04/2023 4:25 AM EDT HEMOGRAM Routine 09/04/2023 3:03 AM EDT DIFFERENTIAL, AUTOMATED Routine 09/04/19 24 3:03 AM EDT CBC (WITH DIFF) Routine 09/04/2023 3:03 AM EDT MAGNESIUM Routine 09/04/2023 3:03 AM EDT BASIC METABOLIC PANEL Routine 09/04/2023 3:03 AM EDT EKG 12-LEAD STAT 09/03/2023 6:02 AM EDT Non-ST elevation myocardial infarction (NSTEMI) EKG 12-LEAD STAT 09/03/2023 3:05 AM EDT Non-ST elevation myocardial infarction (NSTEMI) HEMOGRAM Routine 09/03/2023 2:39 AM EDT DIFFERENTIAL, AUTOMATED Routine 09/03/19 24 2:39 AM EDT CBC (WITH DIFF) Routine 09/03/2023 2:39 AM EDT HC SERUM PROT. ELECTROPHORESIS Routine 09/03/2023 2:39 AM EDT MAGNESIUM Routine 09/03/2023 2:39 AM EDT BASIC METABOLIC PANEL Routine 09/03/2023 2:39 AM EDT HC RANDOM URINE PEP Routine 09/02/2023 9 :30 PM EDT HC VENIPUNCTURE STAT 09/02/2023 8:16 PM EDT HC TROPONIN T STAT 09/02/2023 5:05 PM EDT PRO-BRAIN NATRIURETIC PEPTIDE Routine 09/02/2023 5:05 PM EDT EKG 12-LEAD STAT 09/02/2023 2:42 PM EDT Non-ST elevation myocardial infarction (NSTEMI) HC TROPONIN T STAT 09/02/2023 9:05 AM EDT HC TROPONIN T STAT 09/02/2023 3:18 AM EDT HEMOGRAM Routine 09/02/2023 3:18 AM EDT DIFFERENTIAL, AUTOMATED Routine 09/02/19 3:18 AM EDT CBC (WITH DIFF) Routine 09/02/2023 3:18 AM EDT MAGNESIUM Routine 09/02/2023 3:18 AM EDT BASIC METABOLIC PANEL Routine 09/02/2023 3:18 AM EDT HEMOGRAM Routine 09/01/2023 3:08 AM EDT DIFFERENTIAL, AUTOMATED Routine 09/01/19 24 3:08 AM EDT CBC (WITH DIFF) Routine 09/01/2023 3:08 AM EDT MAGNESIUM Routine 09/01/2023 3:08 AM EDT BASIC METABOLIC PANEL Routine 09/01/2023 3:08 AM EDT PHOSPHORUS Routine 08/31/2023 5:03 PM EDT MAGNESIUM Routine 08/31/2023 5:03 PM EDT BASIC METABOLIC PANEL Routine 08/31/2023 5:03 PM EDT HEMOGRAM Routine 08/31/2023 2:18 AM EDT DIFFERENTIAL, AUTOMATED Routine 08/31/19 24 2:18 AM EDT CBC (WITH DIFF) Routine 08/31/2023 2:18 AM EDT MAGNESIUM Routine 08/31/2023 2:18 AM EDT BASIC METABOLIC PANEL Routine 08/31/2023 2:18 AM EDT HEPARIN (UNFRACTIONATED) LEVEL Timed 08/30/2023 3:09 AM EDT HEMOGRAM Routine 08/30/2023 3:09 AM EDT DIFFERENTIAL, AUTOMATED Routine 08/30/19 3:09 AM EDT CBC (WITH DIFF) Routine 08/30/2023 3:09 AM EDT MAGNESIUM Routine 08/30/2023 3:09 AM EDT BASIC METABOLIC PANEL Routine 08/30/2023 3:09 AM EDT HEPARIN (UNFRACTIONATED) LEVEL Timed 08/29/2023 5:49 [...] ACUTE INFLAMMATION Routine 08/29/19 4:01 AM EDT HEPARIN (UNFRACTIONATED) LEVEL Timed 08/29/2023 4:01 AM EDT HEMOGRAM Routine 08/29/2023 4:01 AM EDT DIFFERENTIAL, AUTOMATED Routine 08/29/19 4:01 AM EDT GREEN TUBE HOLD Routine 08/29/2023 4:01 AM EDT SEDIMENTATION RATE Routine 08/29/2023 4: 01 AM EDT CBC (WITH DIFF) Routine 08/29/2023 4:01 AM EDT BASIC METABOLIC PANEL Routine 08/29/2023 4:01 AM EDT HC VENIPUNCTURE STAT 08/29/2023 12:31 AM EDT HC TROPONIN T STAT 08/28/2023 9:07 PM EDT HEPARIN (UNFRACTIONATED) LEVEL Timed 08/28/2023 9:07 PM EDT HEMOGRAM STAT 08/28/2023 9:07 PM EDT DIFFERENTIAL, AUTOMATED STAT 08/28/19 9:07 PM EDT CBC (WITH DIFF) STAT 08/28/2023 9:07 PM EDT PRO-BRAIN NATRIURETIC PEPTIDE Routine 08/28/2023 9:07 PM EDT MAGNESIUM STAT 08/28/2023 9:07 PM EDT HEPATIC FUNCTION PANEL Routine 9:07 PM EDT LIPID PANEL (REFLEX DIRECT LDL) Routine 08/28/2023 9:07 PM EDT BASIC METABOLIC PANEL STAT 08/28/2023 9:07 PM EDT documented in this encounter Results * Differential, Automated (09/10/2023 4:17 AM EDT) Neutrophil % 54.4 % [facility] Neutrophil Absolute 4.17 1.70 - 6.10 x10(3)/[facility] Lymph % 33.2 % [facility] Lymphocytes Abs 2.5 0.9 - 3.2 x10(3)/[facility]OR[facility] Monocyte % 8.4 % [facility] Monocyte Abs 0.6 0.3 - 0.9 x10(3)/[facility] LABORATORY Eos % 3.0 % [facility] Eosinophils Abs 0.2 0.0 - 0.4 x10(3)/[facility] LABORATORY Basophil % 0.7 % [facility] Baso Absolute 0.0 0.0 - 0.1 x10(3)/[facility] LABORATORY Immature Gran % 0.30 % [facility] Comment: Immature granulocytes(IG's)percentage and absolute count will include metamyelocytes, myelocytes, and promyelocytes. Blood smears from CBCs yielding IG's will be scanned manually for concordance. If this scan disagrees with the automated IG or if promyelocytes are noted, a manual differential will be performed. Immature Gran Absolute 0.02 0.00 - 0.04 x10(3)/[facility] LABORATORY Blood 09/10/2023 4:17 AM EDT 09/10/2023 4:29 AM EDT Narrative Resulting Agency Comment Spec In Lab Eufemia Copeland MD HEMATOLOGY ORDERAB LES [facility] [place] [address] * (ABNORMAL) Hemogram (09/10/2023 4:17 AM EDT) White Blood Cell 7.6 4.0 - 9.5 x10(3)/[facility] LABORATORY Red Blood Cell 4.15 4.00 - 5.21 x10(6)/[facility] LABORATORY Hemoglobin 13.0 11.7 - 15.5 g/dL [facility] Hematocrit 39.2 35.7 - 45.8 % [facility] Mean Cell Volume 94.5(H) 82.6 - 94.[address] [facility] Mean Cell Hemoglobin 31.3 27.1 - 32.[address] [facility] Mean Cell Hemoglobin Concentration 33.2 31.7 - 35.0 g/dL [facility] Platelet 267 145 - 357 x10(3)/mc L [facility] RDW Standard Deviation 44.6 37.0 - 46.[address] [facility] RDW coefficient of variation 13.1 11.5 - 14.1 % [facility] Mean Platelet Volume 10.3 7.6 - 12.[address] [facility] NRBC% auto 0.0 % [facility] NRBC Absolute 0.000 0.000 - 0.000 x10(3)/mc L [facility] Blood 09/10/2023 4:17 AM EDT 09/10/2023 4:29 AM EDT Narrative Resulting Agency Comment Spec In Lab Eufemia Copeland MD HEMATOLOGY ORDERAB LES [facility] [place] [address] * (ABNORMAL) Basic Metabolic Panel (non-fasting) (09/10/2023 4:17 AM EDT) Glucose 92 65 - 199 mg/dL [facility] Comment:Diabetes: >=200 mg/d L plus symptoms Blood Urea Nitrogen 27(H) 8 - 18 mg/dL [facility] Creatinine 1.39(H) 0.70 - 1.20 mg/dL [facility] [...] - 107 mmol/L [facility] Carbon Dioxide 24 22 - 31 mmol/L [facility] Anion Gap 11 5 - 15 mmol/L [facility] Calcium 9.4 8.5 - 10.5 mg/dL [facility] Est Glomerular Filtration Rate 45(L) >=60 mL/min/1. 73 m?? [facility] Comment: This patient's estimated GFR [...] CHEMISTRY ORDERABL ES Performing Organization Address [facility]/[place] Co de Phone Number [facility] [place] [address] * Magnesium (09/10/2023 4:17 AM EDT) Magnesium 0.99 0.69 - 1.07 mmol/L [facility] Blood 09/10/2023 4:17 AM EDT 09/10/2023 4:29 AM EDT Narrative Resulting Agency Comment Spec In Lab Eufemia Copeland MD CHEMISTRY ORDERABL ES Performing Organization Address [facility]/ZIP Co de Phone Number [facility] [place] [address] * Differential, Automated (09/09/2023 5:10 AM EDT) Pathologist [facility] Neutrophil % 54.1 % [facility] Neutrophil Absolute 4.00 1.70 - 6.10 x10(3)/[facility] LABORATORY Lymph % 31.7 % [facility] Lymphocytes Abs 2.3 0.9 - 3.2 x10(3)/[facility] LABORATORY Monocyte % 9.5 % [facility] Monocyte Abs 0.7 0.3 - 0.9 x10(3)/[facility] LABORATORY Eos % 3.5 % [facility] Eosinophils Abs 0.3 0.0 - 0.4 x10(3)/[facility] LABORATORY Basophil % 0.8 % [facility] Baso Absolute 0.1 0.0 - 0.1 x10(3)/[facility] LABORATORY Immature Gran % 0.40 % [facility] Comment: Immature granulocytes(IG's)percentage and absolute count will include metamyelocytes, myelocytes, and promyelocytes. Blood smears from CBCs yielding IG's will be scanned manually for concordance. If this scan disagrees with the automated IG or if promyelocytes are noted, a manual differential will be performed. Immature Gran Absolute 0.03 0.00 - 0.04 x10(3)/[facility] LABORATORY Blood 09/09/2023 5:10 AM EDT 09/09/2023 5:19 AM EDT Narrative Resulting Agency Comment Spec In Lab Eufemia Copeland MD HEMATOLOGY ORDERAB LES [facility] [place] [address] * (ABNORMAL) Hemogram (09/09/2023 5:10 AM EDT) Pathologist [facility] White Blood Cell 7.4 4.0 - 9.5 x10(3)/[facility] LABORATORY Red Blood Cell 4.09 4.00 - 5.21 x10(6)/mc L [facility] Hemoglobin 13.0 11.7 - 15.5 g/dL [facility] Hematocrit 39.2 35.7 - 45.8 % [facility] Mean Cell Volume 95.8(H) 82.6 - 94.[address] [facility] Mean Cell Hemoglobin 31.8 27.1 - 32.[address] [facility] Mean Cell Hemoglobin Concentration 33.2 31.7 - 35.0 g/dL [facility] Platelet 267 145 - 357 x10(3)/mc L [facility] RDW Standard Deviation 45.3 37.0 - 46.[address] [facility] RDW coefficient of variation 12.9 11.5 - 14.1 % [facility] Mean Platelet Volume 9.9 7.6 - 12.[address] [facility] NRBC% auto 0.0 % [facility] NRBC Absolute 0.000 0.000 - 0.000 x10(3)/mc L [facility] Blood 09/09/2023 5:10 AM EDT 09/09/2023 5:19 AM EDT Narrative Resulting Agency Comment Spec In Lab Eufemia Copeland MD HEMATOLOGY ORDERAB LES [facility] [place] [address] * (ABNORMAL) Basic Metabolic Panel (non-fasting) (09/09/2023 5:10 AM EDT) Glucose 97 65 - 199 mg/dL [facility] Comment:Diabetes: >=200 mg/d L plus symptoms Blood Urea Nitrogen 22(H) 8 - 18 mg/dL [facility] Creatinine 1.36(H) 0.70 - 1.20 mg/dL [facility] Sodium 137 135 - 145 mmol/L [facility] Potassium 3.6 3.5 - 5.0 mmol/L [facility] Comment: Please note: ??Patients with WBC >100,000 may have falsely elevated Potassium levels. ??For accurate Potassium quantification in these patients send serum separator tube (gold top) for subsequent determinations. ??Contact the Clinical Chemistry Laboratory if there are any questions. Chloride 100 98 - 107 mmol/L [facility] Carbon Dioxide 25 22 - 31 mmol/L [facility] Anion Gap 12 5 - 15 mmol/L [facility] Calcium 9.5 8.5 - 10.5 mg/dL [facility] Est Glomerular Filtration Rate 46(L) >=60 mL/min/1. 73 m?? [facility] Comment: This patient's estimated GFR [...] Lab Eufemia Copeland MD CHEMISTRY ORDERABL ES [facility] [place] [address] * Magnesium (09/09/2023 5:10 AM EDT) Magnesium 0.97 0.69 - 1.07 mmol/L [facility] Blood 09/09/2023 5:10 AM EDT 09/09/2023 5:19 AM EDT Narrative Resulting Agency Comment Spec In Lab Eufemia Copeland MD CHEMISTRY ORDERABL ES Performing Organization Address [facility] Co de Phone Number [facility] [place] [phone] * EKG 12 Lead (09/08/2023 4:01 AM EDT) Ventricular rate 59 BPM MUSE SYSTEM Atrial Rate 59 BPM MUSE SYSTEM P-R Interval 192 ms MUSE SYSTEM QRS Duration 92 ms MUSE SYSTEM Q-T Interval 452 ms MUSE SYSTEM QTC Calculated (Bezet) 447 ms MUSE SYSTEM Calculated P Mcguffey 38 degrees MUSE SYSTEM Calculated R Mcguffey 51 degrees MUSE SYSTEM Calculated T Mcguffey -18 degrees MUSE SYSTEM INTERPRETATION Sinus bradycardia Diffuse ST depression, consider subendocardial injury Abnormal ECG When compared with ECG of 03-SEP-2023 06:02, Premature atrial complexes are no longer Present QT has shortened I personally reviewed the tracing and edited the fellows interpretation Confirmed by fellow Vito Pearce ([id number]) on 09/08/2023 7:40:32 AM Confirmed by MD Angelo Danette ([id number]) on 09/08/2023 2:12:57 PM MUSE SYSTEM 09/08/2023 4:01 AM EDT 09/08/2023 2:12 PM EDT Eufemia Copeland MD ECG ORDERABLES Performing Organization Address [facility] Co de Phone Number MUSE SYSTEM * Differential, Automated (09/08/2023 2:22 AM EDT) Neutrophil % 55.2 % [facility] Neutrophil Absolute 4.74 1.70 - 6.10 x10(3)/[facility] LABORATORY Lymph % 30.8 % [facility] Lymphocytes Abs 2.6 0.9 - 3.2 x10(3)/[facility] LABORATORY Monocyte % 9.5 % [facility] Monocyte Abs 0.8 0.3 - 0.9 x10(3)/[facility] LABORATORY Eos % 3.6 % [facility] Eosinophils Abs 0.3 0.0 - 0.4 x10(3)/[facility] LABORATORY Basophil % 0.5 % [facility] Baso Absolute 0.0 0.0 - 0.1 x10(3)/[facility] LABORATORY Immature Gran % 0.40 % [facility] Comment: Immature granulocytes(IG's)percentage and absolute count will include metamyelocytes, myelocytes, and promyelocytes. Blood smears from CBCs yielding IG's will be scanned manually for concordance. If this scan disagrees with the automated IG or if promyelocytes are noted, a manual differential will be performed. Immature Gran Absolute 0.03 0.00 - 0.04 x10(3)/[facility] LABORATORY Blood 09/08/2023 2:22 AM EDT 09/08/2023 2:37 AM EDT Narrative Resulting Agency Comment Spec In Lab Eufemia Copeland MD HEMATOLOGY ORDERAB LES Performing Organization Address City/State/[place] Co de Phone Number [facility] [place] [address] * (ABNORMAL) Hemogram (09/08/2023 2:22 AM EDT) White Blood Cell 8.6 4.0 - 9.5 x10(3)/[facility] LABORATORY Red Blood Cell 3.98(L) 4.00 - 5.21 x10(6)/ L [facility] Hemoglobin 12.8 11.7 - 15.5 g/dL [facility] Hematocrit 37.4 35.7 - 45.8 % [facility] Mean Cell Volume 94.0 82.6 - 94.[address] [facility] Mean Cell Hemoglobin 32.2(H) 27.1 - 32.[address] [facility] Mean Cell Hemoglobin Concentration 34.2 31.7 - 35.0 g/dL [facility] Platelet 274 145 - 357 x10(3)/ L [facility] RDW Standard Deviation 44.5 37.0 - 46.[address] [facility] RDW coefficient of variation 12.9 11.5 - 14.1 % [facility] Mean Platelet Volume 10.4 7.6 - 12.9 [facility] LABORATORY NRBC% auto 0.0 % [facility] NRBC Absolute 0.000 0.000 - 0.000 x10(3)/mc L [facility] Blood 09/08/2023 2:22 AM EDT 09/08/2023 2:37 AM EDT Narrative Resulting Agency Comment Spec In Lab Eufemia Copeland MD HEMATOLOGY ORDERAB LES [facility] [place] [address] * (ABNORMAL) Basic Metabolic Panel (non-fasting) (09/08/2023 2:22 AM EDT) Glucose 98 65 - 199 mg/dL [facility] Comment:Diabetes: >=200 mg/d L plus symptoms Blood Urea Nitrogen 19(H) 8 - 18 mg/dL [facility] Creatinine 1.41(H) 0.70 - 1.20 mg/dL [facility] Sodium 139 135 - 145 mmol/L [facility] Potassium 3.6 3.5 - 5.0 mmol/L [facility] Comment: Please note: ??Patients with WBC >100,000 may have falsely elevated Potassium levels. ??For accurate Potassium quantification in these patients send serum separator tube (gold top) for subsequent determinations. ??Contact the Clinical Chemistry Laboratory if there are any questions. Chloride 103 98 - 107 mmol/L [facility] Carbon Dioxide 24 22 - 31 mmol/L [facility] Anion Gap 12 5 - 15 mmol/L [facility] Calcium 9.1 8.5 - 10.5 mg/dL [facility] Est Glomerular Filtration Rate 44(L) >=60 mL/min/1. 73 m?? [facility] Comment: This patient's estimated GFR [...] CHEMISTRY ORDERABL ES Performing Organization Address [facility]/ZIP Co de Phone Number [facility] [place] [address] * Magnesium (09/08/2023 2:22 AM EDT) Magnesium 0.91 0.69 - 1.07 mmol/L [facility] Blood 09/08/2023 2:22 AM EDT 09/08/2023 2:37 AM EDT Narrative Resulting Agency Comment Spec In Lab Eufemia Copeland MD CHEMISTRY ORDERABL ES Performing Organization Address City/[facility]/ZIP Co de Phone Number [facility] [place] [address] * Differential, Automated (09/07/2023 2:56 AM EDT) Neutrophil % 52.3 % [facility] Neutrophil Absolute 3.74 1.70 - 6.10 x10(3)/[facility] LABORATORY Lymph % 33.8 % [facility] Lymphocytes Abs 2.4 0.9 - 3.2 x10(3)/[facility] LABORATORY Monocyte % 9.4 % [facility] Monocyte Abs 0.7 0.3 - 0.9 x10(3)/[facility] LABORATORY Eos % 3.6 % [facility] Eosinophils Abs 0.3 0.0 - 0.4 x10(3)/[facility] LABORATORY Basophil % 0.6 % [facility] Baso Absolute 0.0 0.0 - 0.1 x10(3)/[facility] LABORATORY Immature Gran % 0.30 % [facility] Comment: Immature granulocytes(IG's)percentage and absolute count will include metamyelocytes, myelocytes, and promyelocytes. Blood smears from CBCs yielding IG's will be scanned manually for concordance. If this scan disagrees with the automated IG or if promyelocytes are noted, a manual differential will be performed. Immature Gran Absolute 0.02 0.00 - 0.04 x10(3)/[facility] LABORATORY Blood 09/07/2023 2:56 AM EDT 09/07/2023 3:31 AM EDT Narrative Resulting Agency Comment Spec In Lab Eufemia Copeland MD HEMATOLOGY ORDERAB LES [facility] [place] [address] * (ABNORMAL) Hemogram (09/07/2023 2:56 AM EDT) White Blood Cell 7.2 4.0 - 9.5 x10(3)/mc L [facility] Red Blood Cell 4.16 4.00 - 5.21 x10(6)/mc L [facility] Hemoglobin 13.1 11.7 - 15.5 g/dL [facility] Hematocrit 39.7 35.7 - 45.8 % [facility] Mean Cell Volume 95.4(H) 82.6 - 94.[address] [facility] Mean Cell Hemoglobin 31.5 27.1 - 32.[address] [facility] Mean Cell Hemoglobin Concentration 33.0 31.7 - 35.0 g/dL [facility] Platelet 277 145 - 357 x10(3)/mc L [facility] RDW Standard Deviation 45.4 37.0 - 46.[address] [facility] RDW coefficient of variation 12.9 11.5 - 14.1 % [facility] Mean Platelet Volume 10.6 7.6 - 12.[address] [facility] NRBC% auto 0.0 % [facility] NRBC Absolute 0.000 0.000 - 0.000 x10(3)/mc L [facility] Blood 09/07/2023 2:56 AM EDT 09/07/2023 3:31 AM EDT Narrative Resulting Agency Comment Spec In Lab Eufemia Copeland MD HEMATOLOGY ORDERAB LES [facility] [place] [address] * (ABNORMAL) Basic Metabolic Panel (non-fasting) (09/07/2023 2:56 AM EDT) Glucose 97 65 - 199 mg/dL [facility] Comment:Diabetes: >=200 mg/d L plus symptoms Blood Urea Nitrogen 16 8 - 18 mg/dL [facility] Creatinine 1.19 0.70 - 1.20 mg/dL [facility] Sodium 137 135 - 145 mmol/L [facility] Potassium 3.9 3.5 - 5.0 mmol/L [facility] Comment: Please note: ??Patients with WBC >100,000 may have falsely elevated Potassium levels. ??For accurate Potassium quantification in these patients send serum separator tube (gold top) for subsequent determinations. ??Contact the Clinical Chemistry Laboratory if there are any questions. Chloride 102 98 - 107 mmol/L [facility] Carbon Dioxide 25 22 - 31 mmol/L [facility] Anion Gap 10 5 - 15 mmol/L [facility] Calcium 9.4 8.5 - 10.5 mg/dL [facility] Est Glomerular Filtration Rate 54(L) >=60 mL/min/1. 73 m?? [facility] Comment: This patient's estimated GFR [...] CHEMISTRY ORDERABL ES Performing Organization Address [facility]/ZIP Co de Phone Number [facility] [place] [address] * Magnesium (09/07/2023 2:56 AM EDT) Magnesium 0.96 0.69 - 1.07 mmol/L [facility] Blood 09/07/2023 2:56 AM EDT 09/07/2023 3:31 AM EDT Narrative Resulting Agency Comment Spec In Lab Eufemia Copeland MD CHEMISTRY ORDERABL ES [facility] [place] [address] * Differential, Automated (09/06/2023 2:44 AM EDT) Neutrophil % 53.7 % [facility] Neutrophil Absolute 4.01 1.70 - 6.10 x10(3)/mcL [facility] Lymph % 32.0 % [facility] Lymphocytes Abs 2.4 0.9 - 3.2 x10(3)/[facility] LABORATORY Monocyte % 10.0 % [facility] Monocyte Abs 0.8 0.3 - 0.9 x10(3)/[facility] LABORATORY Eos % 3.2 % [facility] Eosinophils Abs 0.2 0.0 - 0.4 x10(3)/[facility] LABORATORY Basophil % 0.7 % [facility] Baso Absolute 0.0 0.0 - 0.1 x10(3)/[facility] LABORATORY Immature Gran % 0.40 % [facility] Comment: Immature granulocytes(IG's)percentage and absolute count will include metamyelocytes, myelocytes, and promyelocytes. Blood smears from CBCs yielding IG's will be scanned manually for concordance. If this scan disagrees with the automated IG or if promyelocytes are noted, a manual differential will be performed. Immature Gran Absolute 0.03 0.00 - 0.04 x10(3)/[facility] LABORATORY Blood 09/06/2023 2:44 AM EDT 09/06/2023 2:58 AM EDT Narrative Resulting Agency Comment Spec In Lab Eufemia Copeland MD HEMATOLOGY ORDERAB LES [facility] [place] [address] * Hemogram (09/06/2023 2:44 AM EDT) White Blood Cell 7.5 4.0 - 9.5 x10(3)/[facility] LABORATORY Red Blood Cell 4.26 4.00 - 5.21 x10(6)/[facility] Hemoglobin 13.6 11.7 - 15.5 g/dL [facility] Hematocrit 40.2 35.7 - 45.8 % [facility] Mean Cell Volume 94.4 82.6 - 94.[address] [facility] Mean Cell Hemoglobin 31.9 27.1 - 32.[address] [facility] Mean Cell Hemoglobin Concentration 33.8 31.7 - 35.0 g/dL [facility] Platelet 274 145 - 357 x10(3)/[facility]ORAT[facility] RDW Standard Deviation 44.3 37.0 - 46.[address] [facility] RDW coefficient of variation 12.9 11.5 - 14.1 % [facility] Mean Platelet Volume 10.2 7.6 - 12.[address] [facility] NRBC% auto 0.0 % [facility] NRBC Absolute 0.000 0.000 - 0.000 x10(3)/[facility] Blood 09/06/2023 2:44 AM EDT 09/06/2023 2:58 AM EDT Narrative Resulting Agency Comment Spec In Lab Eufemia Copeland MD HEMATOLOGY ORDERAB LES [facility] [place] [address] * Basic Metabolic Panel (non-fasting) (09/06/2023 2:44 AM EDT) Glucose 100 65 - 199 mg/dL [facility] Comment:Diabetes: >=200 mg/d L plus symptoms Blood Urea Nitrogen 16 8 - 18 mg/dL [facility] Creatinine 1.05 0.70 - 1.20 mg/dL [facility] Sodium 137 135 - 145 mmol/L [facility] Potassium 3.6 3.5 - 5.0 mmol/L [facility] Comment: Please note: ??Patients with WBC >100,000 may have falsely elevated Potassium levels. ??For accurate Potassium quantification in these patients send serum separator tube (gold top) for subsequent determinations. ??Contact the Clinical Chemistry Laboratory if there are any questions. Chloride 102 98 - 107 mmol/L [facility] Carbon Dioxide 25 22 - 31 mmol/L [facility] Anion Gap 10 5 - 15 mmol/L [facility] Calcium 9.5 8.5 - 10.5 mg/dL [facility] Est Glomerular Filtration Rate 63 >=60 mL/min/1. 73 m?? [facility] Comment: This patient's estimated GFR [...] CHEMISTRY ORDERABL ES Performing Organization Address City/[facility]/ZIP Co de Phone Number [facility] [place] [address] * Magnesium (09/06/2023 2:44 AM EDT) Pathologist [employer] Magnesium 0.95 0.69 - 1.07 mmol/L [facility] Blood 09/06/2023 2:44 AM EDT 09/06/2023 2:58 AM EDT Narrative Resulting Agency Comment Spec In Lab Eufemia Copeland MD CHEMISTRY ORDERABL ES [facility] [place] [address] * CT Abdomen & Pelvis w Contrast (09/05/2023 4:25 PM EDT) WORKSTATION ID [id number] RAD Anatomical Region Laterality Modality Abdomen, Pelvis [...] who have questions please contact the health hearing healthcare practitioner that requested your imaging first. ? Electronically signed by: Lalitha Sanders MD, [facility] ([phone]), at 09/06/2023 9:47 AM Narrative 09/06/2023 9:47 [...] patients who have questions please contactthe health hearing healthcare practitioner that requested your imaging first. Electronically signed by: Lalitha Sanders MD, [facility]([phone]), at 09/06/2023 9:47 AM Samantha Broussard MD IMG CT ORDERABLES * Differential, Automated (09/05/2023 1:58 AM EDT) Neutrophil % 54.5 % [facility] Neutrophil Absolute 4.32 1.70 - 6.10 x10(3)/[facility] LABORATORY Lymph % 30.5 % [facility] Lymphocytes Abs 2.4 0.9 - 3.2 x10(3)/[facility]OR[facility] Monocyte % 11.4 % [facility] Monocyte Abs 0.9 0.3 - 0.9 x10(3)/[facility]ORAT[facility] Eos % 2.8 % [facility] Eosinophils Abs 0.2 0.0 - 0.4 x10(3)/[facility] Basophil % 0.5 % [facility] Baso Absolute 0.0 0.0 - 0.1 x10(3)/[facility] LABORAT[facility] Immature Gran % 0.30 % [facility] Comment: Immature granulocytes(IG's)percentage and absolute count will include metamyelocytes, myelocytes, and promyelocytes. Blood smears from CBCs yielding IG's will be scanned manually for concordance. If this scan disagrees with the automated IG or if promyelocytes are noted, a manual differential will be performed. Immature Gran Absolute 0.02 0.00 - 0.04 x10(3)/[facility] LABORAT[facility] Blood 09/05/2023 1:58 AM EDT 09/05/2023 2:13 AM EDT Narrative Resulting Agency Comment Spec In Lab Eufemia Copeland MD HEMATOLOGY ORDERAB LES [facility] [place] [address] * Hemogram (09/05/2023 1:58 AM EDT) White Blood Cell 7.9 4.0 - 9.5 x10(3)/[facility] LABOR[facility] Red Blood Cell 4.38 4.00 - 5.21 x10(6)/[facility] Hemoglobin 13.7 11.7 - 15.5 g/dL [facility] Hematocrit 40.5 35.7 - 45.8 % [facility] Mean Cell Volume 92.5 82.6 - 94.[address] [facility] Mean Cell Hemoglobin 31.3 27.1 - 32.[address] [facility] Mean Cell Hemoglobin Concentration 33.8 31.7 - 35.0 g/dL [facility] Platelet 282 145 - 357 x10(3)/[facility] RDW Standard Deviation 44.0 37.0 - 46.[address] [facility] RDW coefficient of variation 13.0 11.5 - 14.1 % [facility] Mean Platelet Volume 10.4 7.6 - 12.[address] [facility] NRBC% auto 0.0 % [facility] NRBC Absolute 0.000 0.000 - 0.000 x10(3)/mcL [facility] Blood 09/05/2023 1:58 AM EDT 09/05/2023 2:13 AM EDT Narrative Resulting Agency Comment Spec In Lab Eufemia Copeland MD HEMATOLOGY ORDERAB LES [facility] [place] [address] * (ABNORMAL) Basic Metabolic Panel (non-fasting) (09/05/2023 1:58 AM EDT) Glucose 103 65 - 199 mg/dL [facility] Comment:Diabetes: >=200 mg/d L plus symptoms Blood Urea Nitrogen 24(H) 8 - 18 mg/dL [facility] Creatinine 1.10 0.70 - 1.20 mg/dL [facility] Sodium 136 135 - 145 mmol/L [facility] Potassium 3.6 3.5 - 5.0 mmol/L [facility] Comment: Please note: ??Patients with WBC >100,000 may have falsely elevated Potassium levels. ??For accurate Potassium quantification in these patients send serum separator tube (gold top) for subsequent determinations. ??Contact the Clinical Chemistry Laboratory if there are any questions. Chloride 99 98 - 107 mmol/L [facility] Carbon Dioxide 25 22 - 31 mmol/L [facility] Anion Gap 12 5 - 15 mmol/L [facility] Calcium 9.5 8.5 - 10.5 mg/dL [facility] Est Glomerular Filtration Rate 60 >=60 mL/min/1. 73 m?? [facility] Comment: This patient's estimated GFR [...] CHEMISTRY ORDERABL ES Performing Organization Address [facility] Co de Phone Number [facility] [place] [address] * Magnesium (09/05/2023 1:58 AM EDT) Magnesium 1.02 0.69 - 1.07 mmol/L [facility] Blood 09/05/2023 1:58 AM EDT 09/05/2023 2:13 AM EDT Narrative Resulting Agency Comment Spec In Lab Eufemia Copeland MD CHEMISTRY ORDERABL ES Performing Organization Address [facility] Co de Phone Number [facility] [place] [address] * Miscellaneous Lab request (09/05/2023 1:58 AM EDT) Label Request received in lab. [facility] Blood 09/05/2023 1:58 AM EDT 09/05/2023 2:14 AM EDT Narrative Resulting Agency Comment Spec In Lab Samantha Broussard MD LAB SEND OUT ORDERAB LES Performing Organization Address [facility] Co de Phone Number [facility] [place] [address] * IgG 4 (09/05/2023 1:58 AM EDT) IgG 4 47.7 3.9 - 86.4 mg/dL [facility] Blood 09/05/2023 1:58 AM EDT 09/05/2023 2:13 AM EDT Narrative Resulting Agency Comment Spec In Lab Samantha Broussard MD IMMUNOLOGY ORDERABLE S [facility] [address] * (ABNORMAL) Basic Metabolic Panel (non-fasting) (09/04/2023 2:11 PM EDT) Glucose 104 65 - 199 mg/dL [facility] Comment:Diabetes: >=200 mg/d L plus symptoms Blood Urea Nitrogen 24(H) 8 - 18 mg/dL [facility] Creatinine 1.34(H) 0.70 - 1.20 mg/dL [facility] Sodium 136 135 - 145 mmol/L [facility] Potassium 3.7 3.5 - 5.0 mmol/L [facility] Comment: Please note: ??Patients with WBC >100,000 may have falsely elevated Potassium levels. ??For accurate Potassium quantification in these patients send serum separator tube (gold top) for subsequent determinations. ??Contact the Clinical Chemistry Laboratory if there are any questions. Chloride 96(L) 98 - 107 mmol/L [facility] Carbon Dioxide 25 22 - 31 mmol/L [facility] Anion Gap 15 5 - 15 mmol/L [facility] Calcium 9.6 8.5 - 10.5 mg/dL [facility] Est Glomerular Filtration Rate 47(L) >=60 mL/min/1. 73 m?? [facility] Comment: This patient's estimated GFR [...] Mcmanus MD CHEMISTRY ORDERABLES Performing Organization Address [facility]/[place] Co de Phone Number [facility] [place] [address] * (ABNORMAL) Potassium (09/04/2023 9:13 AM EDT) Potassium 3.2(L) 3.5 - 5.0 mmol/[facility] Broussard MD CHEMISTRY ORDERABLES Performing Organization Address [facility]/[place] Co de Phone Number [facility] [place] [address] * (ABNORMAL) Potassium (09/04/2023 4:25 AM EDT) Potassium 2.9(Criti edy) 3.5 - 5.0 mmol/L [facility] Comment: Called by: staci, Read [...] MD CHEMISTRY ORDERABLES Performing Organization Address City/[facility]/ZIP Co de Phone Number [facility] [place] [address] * Differential, Automated (09/04/2023 3:03 AM EDT) Neutrophil % 59.0 % [facility] Neutrophil Absolute 4.85 1.70 - 6.10 x10(3)/[facility] Lymph % 26.3 % [facility] Lymphocytes Abs 2.2 0.9 - 3.2 x10(3)/[facility] Monocyte % 10.4 % [facility] Monocyte Abs 0.8 0.3 - 0.9 x10(3)/[facility] Eos % 3.4 % [facility] Eosinophils Abs 0.3 0.0 - 0.4 x10(3)/[facility] Basophil % 0.5 % [facility] Baso Absolute 0.0 0.0 - 0.1 x10(3)/[facility] Immature Gran % 0.40 % [facility] Comment: Immature granulocytes(IG's)percentage and absolute count will include metamyelocytes, myelocytes, and promyelocytes. Blood smears from CBCs yielding IG's will be scanned manually for concordance. If this scan disagrees with the automated IG or if promyelocytes are noted, a manual differential will be performed. Immature Gran Absolute 0.03 0.00 - 0.04 x10(3)/[facility] Blood 09/04/2023 3:03 AM EDT 09/04/2023 3:21 AM EDT Narrative Resulting Agency Comment Spec In Lab Eufemia Copeland MD HEMATOLOGY ORDERAB LES Performing Organization Address City/[facility]/ZIP Co de Phone Number [facility] [place] [address] * (ABNORMAL) Hemogram (09/04/2023 3:03 AM EDT) [facility] White Blood Cell 8.2 4.0 - 9.5 x10(3)/ L [facility] Red Blood Cell 4.55 4.00 - 5.21 x10(6)/mc L [facility] Hemoglobin 14.8 11.7 - 15.5 g/dL [facility] Hematocrit 41.8 35.7 - 45.8 % [facility] Mean Cell Volume 91.9 82.6 - 94.[address] [facility] Mean Cell Hemoglobin 32.5(H) 27.1 - 32.[address] [facility] Mean Cell Hemoglobin Concentration 35.4(H) 31.7 - 35.0 g/dL [facility] Platelet 306 145 - 357 x10(3)/[facility] RDW Standard Deviation 42.8 37.0 - 46.0 [facility] RDW coefficient of variation 12.8 11.5 - 14.1 % [facility] Mean Platelet Volume 10.2 7.6 - 12.9 [facility] NRBC% auto 0.0 % [facility] NRBC Absolute 0.000 0.000 - 0.000 x10(3)/[facility] Blood 09/04/2023 3:03 AM EDT 09/04/2023 3:21 AM EDT Narrative Resulting Agency Comment Spec In Lab Eufemia Copeland MD HEMATOLOGY ORDERAB LES [facility] [place] [address] * (ABNORMAL) Basic Metabolic Panel (non-fasting) (09/04/2023 3:03 AM EDT) [facility] Glucose 117 65 - 199 mg/dL [facility] Comment:Diabetes: >=200 mg/d L plus symptoms Blood Urea Nitrogen 28(H) 8 - 18 mg/dL [facility] Creatinine 1.32(H) 0.70 - 1.20 mg/dL [facility] Sodium 134(L) 135 - 145 mmol/L [facility] Potassium Not Perf 3.5 - 5.0 [facility] Comment: Unable to quantitate due [...] questions. Chloride 92(L) 98 - 107 mmol/L [facility] Carbon Dioxide 26 22 - 31 mmol/L [facility] Anion Gap 16(H) 5 - 15 mmol/L [facility] Calcium 10.0 8.5 - 10.5 mg/dL [facility] Est Glomerular Filtration Rate 48(L) >=60 mL/min/1. 73 m?? [facility] Comment: This patient's estimated GFR [...] Lab Eufemia Copeland MD CHEMISTRY ORDERABL ES [facility] [place] [address] * Magnesium (09/04/2023 3:03 AM EDT) Magnesium 1.07 0.69 - 1.07 mmol/L [facility] Blood 09/04/2023 3:03 AM EDT 09/04/2023 3:21 AM EDT Narrative Resulting Agency Comment Spec In Lab Eufemia Copeland MD CHEMISTRY ORDERABL ES Performing Organization Address [facility]/ZIP Co de Phone Number [facility] [address] * EKG 12 Lead (09/03/2023 6:02 AM EDT) Ventricular rate 65 BPM MUSE SYSTEM Atrial Rate 65 BPM MUSE SYSTEM P-R Interval 196 ms MUSE SYSTEM QRS Duration 94 ms MUSE SYSTEM Q-T Interval 580 ms MUSE SYSTEM QTC Calculated (Bezet) 603 ms MUSE SYSTEM Calculated P Mcguffey 39 degrees MUSE SYSTEM Calculated R Mcguffey 28 degrees MUSE SYSTEM Calculated T Mcguffey 35 degrees MUSE SYSTEM INTERPRETATION Sinus rhythm with Premature atrial complexes Possible Left atrial enlargement Nonspecific ST and T wave abnormality Abnormal ECG When compared with ECG of 03-SEP-2023 03:05, Nonspecific T wave abnormality no longer evident in Inferior leads Nonspecific T wave abnormality, improved in Anterolateral leads QT has lengthened Confirmed by fellow MD Hansa, Sindhu ([id number]) on 09/06/2023 12:52:08 AM Confirmed by MD Khari, Mikey ([id number]) on 09/06/2023 9:05:05 PM MUSE SYSTEM 09/03/2023 6:02 AM EDT 09/06/2023 9:05 PM EDT Archie Mcmanus MD ECG ORDERABLES Performing Organization Address City/[facility]/ZIP Co de Phone Number MUSE SYSTEM * EKG 12 Lead (09/03/2023 3:05 AM EDT) Ventricular rate 62 BPM MUSE SYSTEM Atrial Rate 62 BPM MUSE SYSTEM P-R Interval 174 ms MUSE SYSTEM QRS Duration 90 ms MUSE SYSTEM Q-T Interval 486 ms MUSE SYSTEM QTC Calculated (Bezet) 493 ms MUSE SYSTEM Calculated P Mcguffey 20 degrees MUSE SYSTEM Calculated R Mcguffey 20 degrees MUSE SYSTEM Calculated T Mcguffey -7 degrees MUSE SYSTEM INTERPRETATION Sinus rhythm with Premature atrial complexes Nonspecific ST and T wave abnormality Abnormal ECG When compared with ECG of 02-SEP-2023 14:42, Premature atrial complexes are now Present QT has lengthened Confirmed by fellow MD Hansa, Sindhu ([id number]) on 09/06/2023 12:50:25 AM Confirmed by MD Khari, Mikey ([id number]) on 09/06/2023 9:04:55 PM MUSE SYSTEM 09/03/2023 3:05 AM EDT 09/06/2023 9:04 PM EDT Archie Mcmanus MD ECG ORDERABLES MUSE SYSTEM * Differential, Automated (09/03/2023 2:39 AM EDT) Neutrophil % 61.1 % [facility] Neutrophil Absolute 5.22 1.70 - 6.10 x10(3)/[facility] Lymph % 24.2 % [facility] Lymphocytes Abs 2.1 0.9 - 3.2 x10(3)/[facility] Monocyte % 10.3 % [facility] Monocyte Abs 0.9 0.3 - 0.9 x10(3)/[facility] Eos % 3.6 % [facility] Eosinophils Abs 0.3 0.0 - 0.4 x10(3)/[facility] Basophil % 0.6 % [facility] Baso Absolute 0.0 0.0 - 0.1 x10(3)/[facility] Immature Gran % 0.20 % [facility] Comment: Immature granulocytes(IG's)percentage and absolute count will include metamyelocytes, myelocytes, and promyelocytes. Blood smears from CBCs yielding IG's will be scanned manually for concordance. If this scan disagrees with the automated IG or if promyelocytes are noted, a manual differential will be performed. Immature Gran Absolute 0.02 0.00 - 0.04 x10(3)/[facility] Blood 09/03/2023 2:39 AM EDT 09/03/2023 2:46 AM EDT Narrative Resulting Agency Comment Spec In Lab Eufemia Copeland MD HEMATOLOGY ORDERAB LES [facility] [place] [address] * Hemogram (09/03/2023 2:39 AM EDT) White Blood Cell 8.6 4.0 - 9.5 x10(3)/[facility] Red Blood Cell 4.83 4.00 - 5.21 x10(6)/[facility] Hemoglobin 15.2 11.7 - 15.5 g/dL [facility] Hematocrit 45.4 35.7 - 45.8 % [facility] Mean Cell Volume 94.0 82.6 - 94.[address] [facility] Mean Cell Hemoglobin 31.5 27.1 - 32.[address] [facility] Mean Cell Hemoglobin Concentration 33.5 31.7 - 35.0 g/dL [facility] Platelet 295 145 - 357 x10(3)/[facility] RDW Standard Deviation 44.1 37.0 - 46.0 [facility] RDW coefficient of variation 12.8 11.5 - 14.1 % [facility] Mean Platelet Volume 10.3 7.6 - 12.9 [facility] NRBC% auto 0.0 % [facility] NRBC Absolute 0.000 0.000 - 0.000 x10(3)/[facility] Blood 09/03/2023 2:39 AM EDT 09/03/2023 2:46 AM EDT Narrative Resulting Agency Comment Spec In Lab Eufemia Copeland MD HEMATOLOGY ORDERAB LES [facility] [place] [address] * (ABNORMAL) Basic Metabolic Panel (non-fasting) (09/03/2023 2:39 AM EDT) Glucose 108 65 - 199 mg/dL [facility] Comment:Diabetes: >=200 mg/d L plus symptoms Blood Urea Nitrogen 23(H) 8 - 18 mg/dL [facility] Creatinine 1.53(H) 0.70 - 1.20 mg/dL [facility] Sodium 138 135 - 145 mmol/L [facility] Potassium 3.4(L) 3.5 - 5.0 mmol/L [facility] Comment: Please note: ??Patients with WBC >100,000 may have falsely elevated Potassium levels. ??For accurate Potassium quantification in these patients send serum separator tube (gold top) for subsequent determinations. ??Contact the Clinical Chemistry Laboratory if there are any questions. Chloride 93(L) 98 - 107 mmol/L [facility] Carbon Dioxide 30 22 - 31 mmol/L [facility] Anion Gap 15 5 - 15 mmol/L [facility] Calcium 10.4 8.5 - 10.5 mg/dL [facility] Est Glomerular Filtration Rate 40(L) >=60 mL/min/1. 73 m?? [facility] Comment: This patient's estimated GFR [...] CHEMISTRY ORDERABL ES Performing Organization Address [facility]/[place] Co de Phone Number [facility] [address] * Magnesium (09/03/2023 2:39 AM EDT) Magnesium 0.98 0.69 - 1.07 mmol/L [facility] Blood 09/03/2023 2:39 AM EDT 09/03/2023 2:46 AM EDT Narrative Resulting Agency Comment Spec In Lab Eufemia Copeland MD CHEMISTRY ORDERABL ES Performing Organization Address [facility] de Phone Number [facility] [address] * (ABNORMAL) Protein Electrophoresis, serum (09/03/2023 2:39 AM EDT) Total Prot Electrophoresis 7.9 6.1 - 8.0 g/dL [facility] Albumin Electrophoresis 4.87 3.20 - 5.20 g/dL [facility] Alpha 1 Globulin 0.21 0.10 - 0.30 g/dL [facility] Alpha 2 Globulin 1.03(H) 0.40 - 0.90 g/dL [facility] Beta Globulin 0.90 0.50 - 1.00 g/dL [facility] Gamma Globulin 0.88 0.50 - 1.30 g/dL [facility] M1 Band None Detected None Detected [facility] Blood 09/03/2023 2:39 AM EDT 09/03/2023 2:46 AM EDT Narrative Resulting Agency Comment Spec In Lab Lorna Herr MD CHEMISTRY ORDERABLES Performing Organization Address [facility]/[place] Co de Phone Number [facility] [address] * Protein Electrophoresis, urine, random (09/02/2023 9:30 PM EDT) Protein, Urine <6 0 - 12 mg/dL [facility] U Albumin See Note [facility] Comment:No protein visible v ia electrophoresis due to a low urine total protein. Globulin, Urine Not Perf [facility] Comment:No protein visible v ia electrophoresis due to a low urine total protein. M1 Band, Urine Not Perf [facility] Comment:No protein visible v ia electrophoresis due to a low urine total protein. UPEP Comments See Note [facility] Comment: Total Protein concentration too low to fractionate using current electrophoretic technique. No protein visible via electrophoresis due to a low urine total protein. Urine 09/02/2023 9:30 PM EDT 09/02/2023 9:35 PM EDT Narrative Resulting Agency Comment Spec In Lab Lorna Herr MD URINE ORDERABLES [facility] [place] [address] * (ABNORMAL) Troponin (09/02/2023 8:16 PM EDT) Troponin-T, High Sensitivity 24(H) <=14 ng/L [facility] [...] can be found in the [facility] Test Catalog Troponin - [facility] Test Catalog Reference: Fourth [place] Definition of Myocardial Infarction. Journal of the [place] [employer] 2018;72:8365-2511 Blood 09/02/2023 8:16 PM EDT 09/02/2023 8:25 PM EDT Narrative Resulting Agency Comment Spec In Lab Lorna Herr MD CHEMISTRY ORDERABLES Performing Organization Address City/[facility]/ZIP Co de Phone Number [facility] [place] [address] * (ABNORMAL) pro-Brain Natriuretic Peptide (09/02/2023 5:05 PM EDT) NT-proBNP 985(H) <=124 pg/mL [facility] Blood 09/02/2023 5:05 PM EDT 09/02/2023 5:17 PM EDT Narrative Resulting Agency Comment Spec In Lab Lorna Herr MD CHEMISTRY ORDERABLES Performing Organization Address City/[facility]/ZIP Co de Phone Number [facility] [address] * (ABNORMAL) Troponin (09/02/2023 5:05 PM EDT) Troponin-T, High Sensitivity 24(H) <=14 ng/L [facility] [...] can be found in the [facility] Test Catalog Troponin - [facility] Test Catalog Reference: Fourth [place] Definition of Myocardial Infarction. Journal of the [place] [employer] 2018;72:6590-1211 Blood 09/02/2023 5:05 PM EDT 09/02/2023 5:17 PM EDT Narrative Resulting Agency Comment Spec In Lab Lorna Herr MD CHEMISTRY ORDERABLES Performing Organization Address City/[facility]/ZIP Co de Phone Number [facility] [place] [address] * EKG 12 Lead (09/02/2023 2:42 PM EDT) Ventricular rate 60 BPM MUSE SYSTEM Atrial Rate 60 BPM MUSE SYSTEM P-R Interval 178 ms MUSE SYSTEM QRS Duration 88 ms MUSE SYSTEM Q-T Interval 434 ms MUSE SYSTEM QTC Calculated (Bezet) 434 ms MUSE SYSTEM Calculated P Mcguffey 42 degrees MUSE SYSTEM Calculated R Mcguffey 44 degrees MUSE SYSTEM INTERPRETATION Normal sinus [...] Mcmanus MD ECG ORDERABLES Performing Organization Address City/[facility]/ZIP Co de Phone Number MUSE SYSTEM * (ABNORMAL) Troponin (09/02/2023 9:05 AM EDT) [facility] Troponin-T, High Sensitivity 22(H) <=14 ng/L [facility] Comment: [...] can be found in the [facility] Test Catalog Troponin - [facility] Test Catalog Reference: [place] Definition of Myocardial Infarction. Journal of the [place] [employer] 2018;72:0471-3914 Blood 09/02/2023 9:05 AM EDT 09/02/2023 9:28 AM EDT Narrative Resulting Agency Comment Spec In Lab Archie Mcmanus MD CHEMISTRY ORDERABLES [facility] [address] * Differential, Automated (09/02/2023 3:18 AM EDT) [facility] Neutrophil % 58.4 % [facility] Neutrophil Absolute 4.40 1.70 - 6.10 x10(3)/[facility] Lymph % 28.2 % [facility] Lymphocytes Abs 2.1 0.9 - 3.2 x10(3)/[facility] Monocyte % 8.3 % [facility] Monocyte Abs 0.6 0.3 - 0.9 x10(3)/[facility] Eos % 4.2 % [facility] Eosinophils Abs 0.3 0.0 - 0.4 x10(3)/[facility] Basophil % 0.5 % [facility] Baso Absolute 0.0 0.0 - 0.1 x10(3)/[facility] Immature Gran % 0.40 % [facility] Comment: Immature granulocytes(IG's)percentage and absolute count will include metamyelocytes, myelocytes, and promyelocytes. Blood smears from CBCs yielding IG's will be scanned manually for concordance. If this scan disagrees with the automated IG or if promyelocytes are noted, a manual differential will be performed. Immature Gran Absolute 0.03 0.00 - 0.04 x10(3)/[facility] Blood 09/02/2023 3:18 AM EDT 09/02/2023 3:55 AM EDT Narrative Resulting Agency Comment Spec In Lab Eufemia Copeland MD HEMATOLOGY ORDERAB LES [facility] [place] [address] * (ABNORMAL) Hemogram (09/02/2023 3:18 AM EDT) White Blood Cell 7.6 4.0 - 9.5 x10(3)/ L [facility] Red Blood Cell 4.33 4.00 - 5.21 x10(6)/[facility] Hemoglobin 13.6 11.7 - 15.5 g/dL [facility] Hematocrit 41.0 35.7 - 45.8 % [facility] Mean Cell Volume 94.7(H) 82.6 - 94.4 fL [facility] Mean Cell Hemoglobin 31.4 27.1 - 32.[address] [facility] Mean Cell Hemoglobin Concentration 33.2 31.7 - 35.0 g/dL [facility] Platelet 275 145 - 357 x10(3)/mc L [facility] RDW Standard Deviation 45.7 37.0 - 46.[address] [facility] RDW coefficient of variation 13.2 11.5 - 14.1 % [facility] Mean Platelet Volume 10.7 7.6 - 12.[address] [facility] NRBC% auto 0.0 % [facility] NRBC Absolute 0.000 0.000 - 0.000 x10(3)/mc L [facility] Blood 09/02/2023 3:18 AM EDT 09/02/2023 3:55 AM EDT Narrative Resulting Agency Comment Spec In Lab Eufemia Copeland MD HEMATOLOGY ORDERAB LES [facility] [place] [address] * (ABNORMAL) Troponin (09/02/2023 3:18 AM EDT) Troponin-T, High Sensitivity 23(H) <=14 ng/L [facility] [...] can be found in the [facility] Test Catalog Troponin - [facility] Test Catalog Reference: Fourth [place] Definition of Myocardial Infarction. Journal of the [place] [employer] 2018;72:1882-6132 Blood 09/02/2023 3:18 AM EDT 09/02/2023 3:55 AM EDT Narrative Resulting Agency Comment Spec In Lab Archie Mcmanus MD CHEMISTRY ORDERABLES [facility] [place] [address] * (ABNORMAL) Basic Metabolic Panel (non-fasting) (09/02/2023 3:18 AM EDT) Glucose 121 65 - 199 mg/dL [facility] Comment:Diabetes: >=200 mg/d L plus symptoms Blood Urea Nitrogen 17 8 - 18 mg/dL [facility] Creatinine 1.20 0.70 - 1.20 mg/dL [facility] Sodium 140 135 - 145 mmol/L [facility] Potassium 3.7 3.5 - 5.0 mmol/L [facility] Comment: Please note: ??Patients with WBC >100,000 may have falsely elevated Potassium levels. ??For accurate Potassium quantification in these patients send serum separator tube (gold top) for subsequent determinations. ??Contact the Clinical Chemistry Laboratory if there are any questions. Chloride 101 98 - 107 mmol/L [facility] Carbon Dioxide 25 22 - 31 mmol/L [facility] Anion Gap 14 5 - 15 mmol/L [facility] Calcium 9.5 8.5 - 10.5 mg/dL [facility] Est Glomerular Filtration Rate 54(L) >=60 mL/min/1. 73 m?? [facility] Comment: This patient's estimated GFR [...] CHEMISTRY ORDERABL ES Performing Organization Address City/[facility]/ZIP Co de Phone Number [facility] [address] * Magnesium (09/02/2023 3:18 AM EDT) Magnesium 0.91 0.69 - 1.07 mmol/L [facility] Blood 09/02/2023 3:18 AM EDT 09/02/2023 3:55 AM EDT Narrative Resulting Agency Comment Spec In Lab Eufemia Copeland MD CHEMISTRY ORDERABL ES Performing Organization Address City/[facility]/ZIP Co de Phone Number [facility] [place] [address] * Differential, Automated (09/01/2023 3:08 AM EDT) Neutrophil % 57.1 % [facility] Neutrophil Absolute 4.00 1.70 - 6.10 x10(3)/[facility] Lymph % 26.9 % [facility] Lymphocytes Abs 1.9 0.9 - 3.2 x10(3)/[facility] Monocyte % 11.4 % [facility] Monocyte Abs 0.8 0.3 - 0.9 x10(3)/[facility] Eos % 4.1 % [facility] Eosinophils Abs 0.3 0.0 - 0.4 x10(3)/[facility] LABORATORY Basophil % 0.4 % [facility] Baso Absolute 0.0 0.0 - 0.1 x10(3)/[facility] LABORATORY Immature Gran % 0.10 % [facility] Comment: Immature granulocytes(IG's)percentage and absolute count will include metamyelocytes, myelocytes, and promyelocytes. Blood smears from CBCs yielding IG's will be scanned manually for concordance. If this scan disagrees with the automated IG or if promyelocytes are noted, a manual differential will be performed. Immature Gran Absolute 0.01 0.00 - 0.04 x10(3)/[facility] LABORATORY Blood 09/01/2023 3:08 AM EDT 09/01/2023 3:18 AM EDT Narrative Resulting Agency Comment Spec In Lab Eufemia Copeland MD HEMATOLOGY ORDERAB LES [facility] [place] [address] * (ABNORMAL) Hemogram (09/01/2023 3:08 AM EDT) White Blood Cell 7.0 4.0 - 9.5 x10(3)/ L [facility] Red Blood Cell 4.18 4.00 - 5.21 x10(6)/ L [facility] Hemoglobin 13.6 11.7 - 15.5 g/dL [facility] Hematocrit 39.8 35.7 - 45.8 % [facility] Mean Cell Volume 95.2(H) 82.6 - 94.[address] [facility] Mean Cell Hemoglobin 32.5(H) 27.1 - 32.[address] [facility] Mean Cell Hemoglobin Concentration 34.2 31.7 - 35.0 g/dL [facility] Platelet 232 145 - 357 x10(3)/mc L [facility] RDW Standard Deviation 45.0 37.0 - 46.[address] [facility] RDW coefficient of variation 13.1 11.5 - 14.1 % [facility] Mean Platelet Volume 10.2 7.6 - 12.[address] [facility] NRBC% auto 0.0 % [facility] NRBC Absolute 0.000 0.000 - 0.000 x10(3)/mc L [facility] Blood 09/01/2023 3:08 AM EDT 09/01/2023 3:18 AM EDT Narrative Resulting Agency Comment Spec In Lab Eufemia Copeland MD HEMATOLOGY ORDERAB LES Performing Organization Address City/State/[place] Co de Phone Number [facility] [place] [address] * (ABNORMAL) Basic Metabolic Panel (non-fasting) (09/01/2023 3:08 AM EDT) Glucose 110 65 - 199 mg/dL [facility] Comment:Diabetes: >=200 mg/d L plus symptoms Blood Urea Nitrogen 20(H) 8 - 18 mg/dL [facility] Creatinine 1.22(H) 0.70 - 1.20 mg/dL [facility] Sodium 138 135 - 145 mmol/L [facility] Potassium 4.0 3.5 - 5.0 mmol/L [facility] Comment: Please note: ??Patients with WBC >100,000 may have falsely elevated Potassium levels. ??For accurate Potassium quantification in these patients send serum separator tube (gold top) for subsequent determinations. ??Contact the Clinical Chemistry Laboratory if there are any questions. Chloride 101 98 - 107 mmol/L [facility] Carbon Dioxide 23 22 - 31 mmol/L [facility] Anion Gap 14 5 - 15 mmol/L [facility] Calcium 9.7 8.5 - 10.5 mg/dL [facility] Est Glomerular Filtration Rate 53(L) >=60 mL/min/1. 73 m?? [facility] Comment: This patient's estimated GFR [...] CHEMISTRY ORDERABL ES Performing Organization Address City/[facility]/ZIP Co de Phone Number [facility] [place] [address] * Magnesium (09/01/2023 3:08 AM EDT) Magnesium 0.98 0.69 - 1.07 mmol/L [facility] Blood 09/01/2023 3:08 AM EDT 09/01/2023 3:18 AM EDT Narrative Resulting Agency Comment Spec In Lab Eufemia Copeland MD CHEMISTRY ORDERABL ES [facility] [place] [address] * Magnesium (08/31/2023 5:03 PM EDT) Magnesium 0.95 0.69 - 1.07 mmol/L [facility] Blood 08/31/2023 5:03 PM EDT 08/31/2023 5:08 PM EDT Narrative Resulting Agency Comment Spec In Lab Eufemia Copeland MD CHEMISTRY ORDERABL ES [facility] [place] [address] * Phosphorus (08/31/2023 5:03 PM EDT) Phosphorus 3.8 2.5 - 4.5 mg/dL [facility] Blood 08/31/2023 5:03 PM EDT 08/31/2023 5:08 PM EDT Narrative Resulting Agency Comment Spec In Lab Eufemia Copeland MD CHEMISTRY ORDERABL ES Performing Organization Address [facility]/[place] Co de Phone Number [facility] [place] [address] * (ABNORMAL) Basic Metabolic Panel (non-fasting) (08/31/2023 5:03 PM EDT) Glucose 111 65 - 199 mg/dL [facility] Comment:Diabetes: >=200 mg/d L plus symptoms Blood Urea Nitrogen 17 8 - 18 mg/dL [facility] Creatinine 1.14 0.70 - 1.20 mg/dL [facility] Sodium 138 135 - 145 mmol/L [facility] Potassium 3.8 3.5 - 5.0 mmol/L [facility] Comment: Please note: ??Patients with WBC >100,000 may have falsely elevated Potassium levels. ??For accurate Potassium quantification in these patients send serum separator tube (gold top) for subsequent determinations. ??Contact the Clinical Chemistry Laboratory if there are any questions. Chloride 101 98 - 107 mmol/L [facility] Carbon Dioxide 23 22 - 31 mmol/L [facility] Anion Gap 14 5 - 15 mmol/L [facility] Calcium 9.6 8.5 - 10.5 mg/dL [facility] Est Glomerular Filtration Rate 57(L) >=60 mL/min/1. 73 m?? [facility] Comment: This patient's estimated [...] Lab Eufemia Copeland MD CHEMISTRY ORDERABL ES [facility] [place] [address] * Differential, Automated (08/31/2023 2:18 AM EDT) Neutrophil % 58.1 % [facility] Neutrophil Absolute 4.52 1.70 - 6.10 x10(3)/[facility] LABORATORY Lymph % 25.8 % [facility] Lymphocytes Abs 2.0 0.9 - 3.2 x10(3)/[facility] LABORATORY Monocyte % 11.0 % [facility] Monocyte Abs 0.9 0.3 - 0.9 x10(3)/[facility] LABORATORY Eos % 4.0 % [facility] Eosinophils Abs 0.3 0.0 - 0.4 x10(3)/[facility] LABORATORY Basophil % 0.6 % [facility] Baso Absolute 0.0 0.0 - 0.1 x10(3)/[facility] LABORATORY Immature Gran % 0.50 % [facility] Comment: Immature granulocytes(IG's)percentage and absolute count will include metamyelocytes, myelocytes, and promyelocytes. Blood smears from CBCs yielding IG's will be scanned manually for concordance. If this scan disagrees with the automated IG or if promyelocytes are noted, a manual differential will be performed. Immature Gran Absolute 0.04 0.00 - 0.04 x10(3)/mcL [facility] Blood 08/31/2023 2:18 AM EDT 08/31/2023 2:23 AM EDT Narrative Resulting Agency Comment Spec In Lab Archie Mcmanus MD HEMATOLOGY ORDERABLE S [facility] [place] [address] * (ABNORMAL) Hemogram (08/31/2023 2:18 AM EDT) White Blood Cell 7.8 4.0 - 9.5 x10(3)/mc L [facility] Red Blood Cell 3.97(L) 4.00 - 5.21 x10(6)/mc L [facility] Hemoglobin 12.6 11.7 - 15.5 g/dL [facility] Hematocrit 38.5 35.7 - 45.8 % [facility] Mean Cell Volume 97.0(H) 82.6 - 94.4 [facility] LABORATORY Mean Cell Hemoglobin 31.7 27.1 - 32.[address] [facility] Mean Cell Hemoglobin Concentration 32.7 31.7 - 35.0 g/dL [facility] Platelet 218 145 - 357 x10(3)/mc L [facility] RDW Standard Deviation 47.5(H) 37.0 - 46.0 [facility] LABORATORY RDW coefficient of variation 13.2 11.5 - 14.1 % [facility] Mean Platelet Volume 10.6 7.6 - 12.9 [facility] LABORATORY NRBC% auto 0.0 % [facility] NRBC Absolute 0.000 0.000 - 0.000 x10(3)/mc L [facility] Blood 08/31/2023 2:18 AM EDT 08/31/2023 2:23 AM EDT Narrative Resulting Agency Comment Spec In Lab Arcihe Mcmanus MD HEMATOLOGY ORDERABLE S [facility] [place] [address] * Magnesium (08/31/2023 2:18 AM EDT) Magnesium 0.96 0.69 - 1.07 mmol/L [facility] Blood 08/31/2023 2:18 AM EDT 08/31/2023 2:23 AM EDT Narrative Resulting Agency Comment Spec In Lab Eufemia Copeland MD CHEMISTRY ORDERABL ES Performing Organization Address [facility]/[place] Co de Phone Number [facility] [place] [address] * (ABNORMAL) Basic Metabolic Panel (non-fasting) (08/31/2023 2:18 AM EDT) Glucose 114 65 - 199 mg/dL [facility] Comment:Diabetes: >=200 mg/d L plus symptoms Blood Urea Nitrogen 18 8 - 18 mg/dL [facility] Creatinine 1.37(H) 0.70 - 1.20 mg/dL [facility] Sodium 137 135 - 145 mmol/L [facility] Comment:result rechecked-bz Potassium 3.8 3.5 - 5.0 mmol/L [facility] Comment: result rechecked-bz Please note: ??Patients with WBC >100,000 may have falsely elevated Potassium levels. ??For accurate Potassium quantification in these patients send serum separator tube (gold top) for subsequent determinations. ??Contact the Clinical Chemistry Laboratory if there are any questions. Chloride 100 98 - 107 mmol/L [facility] Comment:result rechecked-bz Carbon Dioxide 25 22 - 31 mmol/L [facility] Anion Gap 12 5 - 15 mmol/L [facility] Calcium 9.6 8.5 - 10.5 mg/dL [facility] Comment:result rechecked-bz Est Glomerular Filtration Rate 46(L) >=60 mL/min/1. 73 m?? [facility] Comment: This patient's estimated GFR [...] In Lab Archie Mcmanus MD CHEMISTRY ORDERABLES [facility] [place] [address] * Differential, Automated (08/30/2023 3:09 AM EDT) Neutrophil % 67.5 % [facility] Neutrophil Absolute 5.26 1.70 - 6.10 x10(3)/[facility] LABORATORY Lymph % 19.1 % [facility] Lymphocytes Abs 1.5 0.9 - 3.2 x10(3)/[facility] LABORATORY Monocyte % 9.4 % [facility] Monocyte Abs 0.7 0.3 - 0.9 x10(3)/[facility] LABORATORY Eos % 3.2 % [facility] Eosinophils Abs 0.2 0.0 - 0.4 x10(3)/[facility] LABORATORY Basophil % 0.4 % [facility] Baso Absolute 0.0 0.0 - 0.1 x10(3)/[facility] LABORATORY Immature Gran % 0.40 % [facility] Comment: Immature granulocytes(IG's)percentage and absolute count will include metamyelocytes, myelocytes, and promyelocytes. Blood smears from CBCs yielding IG's will be scanned manually for concordance. If this scan disagrees with the automated IG or if promyelocytes are noted, a manual differential will be performed. Immature Gran Absolute 0.03 0.00 - 0.04 x10(3)/[facility] LABORATORY Blood 08/30/2023 3:09 AM EDT 08/30/2023 3:21 AM EDT Narrative Resulting Agency Comment Spec In Lab Archie Mcmanus MD HEMATOLOGY ORDERABLE S [facility] [place] [address] * (ABNORMAL) Hemogram (08/30/2023 3:09 AM EDT) White Blood Cell 7.8 4.0 - 9.5 x10(3)/mc L [facility] Red Blood Cell 3.34(L) 4.00 - 5.21 x10(6)/mc L [facility] Hemoglobin 10.5(L) 11.7 - 15.5 g/dL [facility] Hematocrit 31.8(L) 35.7 - 45.8 % [facility] Mean Cell Volume 95.2(H) 82.6 - 94.[address] [facility] Mean Cell Hemoglobin 31.4 27.1 - 32.[address] [facility] Mean Cell Hemoglobin Concentration 33.0 31.7 - 35.0 g/dL [facility] Platelet 176 145 - 357 x10(3)/mc L [facility] RDW Standard Deviation 46.5(H) 37.0 - 46.[address] [facility] RDW coefficient of variation 13.2 11.5 - 14.1 % [facility] Mean Platelet Volume 10.9 7.6 - 12.[address] [facility] NRBC% auto 0.0 % [facility] NRBC Absolute 0.000 0.000 - 0.000 x10(3)/mc L [facility] Blood 08/30/2023 3:09 AM EDT 08/30/2023 3:21 AM EDT Narrative Resulting Agency Comment Spec In Lab Acrhie Mcmanus MD HEMATOLOGY ORDERABLE S [facility] [place] [address] * Heparin (unfractionated) Level (08/30/2023 3:09 AM EDT) UF Heparin 0.46 IU/mL [facility] [...] Lab Archie Mcmanus MD HEMATOLOGY ORDERABLE S [facility] [place] [address] * Magnesium (08/30/2023 3:09 AM EDT) Magnesium 0.74 0.69 - 1.07 mmol/L [facility] Blood 08/30/2023 3:09 AM EDT 08/30/2023 3:20 AM EDT Narrative Resulting Agency Comment Spec In Lab Eufemia Copeland MD CHEMISTRY ORDERABL ES [facility] [place] [address] * (ABNORMAL) Basic Metabolic Panel (non-fasting) (08/30/2023 3:09 AM EDT) Glucose 99 65 - 199 mg/dL [facility] Comment:Diabetes: >=200 mg/d L plus symptoms Blood Urea Nitrogen 16 8 - 18 mg/dL [facility] Creatinine 1.03 0.70 - 1.20 mg/dL [facility] Sodium 145 135 - 145 mmol/L [facility] Potassium 3.7 3.5 - 5.0 mmol/L [facility] Comment: Please note: ??Patients with WBC >100,000 may have falsely elevated Potassium levels. ??For accurate Potassium quantification in these patients send serum separator tube (gold top) for subsequent determinations. ??Contact the Clinical Chemistry Laboratory if there are any questions. Chloride 114(H) 98 - 107 mmol/L [facility] Carbon Dioxide 19(L) 22 - 31 mmol/L [facility] Anion Gap 12 5 - 15 mmol/L [facility] Calcium 7.1(L) 8.5 - 10.5 mg/dL [facility] Comment:result rechecked-mg Est Glomerular Filtration Rate 65 >=60 mL/min/1. 73 m?? [facility] Comment: This patient's estimated GFR [...] Mcmanus MD CHEMISTRY ORDERABLES Performing Organization Address [facility]/[place] Co de Phone Number [facility] [place] [address] * Heparin (unfractionated) Level (08/29/2023 5:49 PM EDT) Pathologist [facility] UF Heparin 0.52 IU/mL [facility] [...] HEMATOLOGY ORDERABLE S Performing Organization Address [facility]/[place] Co de Phone Number [facility] [place] [address] * EKG 12 Lead (08/29/2023 3:05 PM EDT) Ventricular rate 56 BPM MUSE SYSTEM Atrial Rate 56 BPM MUSE SYSTEM P-R Interval 172 ms MUSE SYSTEM QRS Duration 86 ms MUSE SYSTEM Q-T Interval 560 ms MUSE SYSTEM QTC Calculated (Bezet) 540 ms MUSE SYSTEM Calculated P Mcguffey 10 degrees MUSE SYSTEM Calculated R Mcguffey 27 degrees MUSE SYSTEM Calculated T Mcguffey 8 degrees MUSE SYSTEM INTERPRETATION Sinus bradycardia ??with intraatrial conduction disturbance Possible Lateral infarct (cited on or before 29-JUL-2023) Prolonged QT Abnormal ECG When compared with ECG of 29-AUG-2023 06:04, T wave inversion no longer evident in Lateral leads Confirmed by MD Lucia Jose ([id number]) on 08/29/2023 9:24:58 PM MUSE SYSTEM 08/29/2023 3:05 PM EDT 08/29/2023 9:24 PM EDT Archie Mcmanus MD ECG ORDERABLES Performing Organization Address [facility]/ZIP Co de Phone Number MUSE SYSTEM * Heparin (unfractionated) Level (08/29/2023 11:48 AM EDT) UF Heparin 0.55 IU/mL [facility] [...] HEMATOLOGY ORDERABLE S Performing Organization Address City/[facility]/ZIP Co de Phone Number [facility] [place] [address] * ECHO LMTD W CONTRAST W LMTD SPEC DOPP COLOR DOPP (08/29/2023 11:35 AM EDT) EF 50 [facility]ART[facility] SYSTEM Anatomical Region Laterality Modality Cardiac Other 08/29/2023 9:47 AM EDT Narrative 08/29/2023 12:27 PM EDT [address] [place] [id number] ? Echocardiogram Report Name: LOIDA MADRIGAL ? Study Date: 08/29/2023 09:47 AMBP: 100/55 mmHg ? Patient Location: [place] [id number] A : 1970 ? Height: 163 cm ? Account: [id number] Age: 53 yrs ? Weight: 102 kg Gender: Female ?BSA: 2.1 m2 Ordering Physician: ARCHIE MCMANUS Referring Physician: SKIP HUMPHREY Performed By: Nalini Alvares RDCS Exam Location: [facility]. Interpretation Summary Left ventricle is normal in size. There is low normal global systolic function, with focal hypokinesis in the anteroseptum as ascribed. Right ventricle is not well visualized. No hemodynamically significant valve disease. Compared to prior studies over the past 6 months, there has been stable global LV systolic function, with oscillating regional function of the anterior wall. Procedure Limited - [id number]. Image enhancement Optison was used for left [...] Note Jaspreet Kinsey MD - 08/29/2023 [address] [place] [address] Echocardiogram Report Name: LOIDA MADRIGAL Study Date: 409:47 AMBP: 100/55 mmHg Patient Location: [id number] A : 1970 Height: 163 cm Account: [id number] Age: 53 yrs Weight: 102 kg Gender: Female BSA: 2.1 m2 Ordering Physician: ARCHIE MCMANUS Referring Physician: SKIP HUMPHREY Performed By: Nalini Alvares RDCS Exam Location: [facility]. Interpretation Summary Left ventricle is normal in size. There is low normal global systolicfunction, with focal hypokinesis in the anteroseptum as ascribed. Right ventricle is not well visualized. No hemodynamically significant valve disease. Compared to prior studies over the past 6 months, there has been stableglobal LV systolic function, with oscillating regional function of the anteriorwall. Procedure Limited - [id number]. Image enhancement Optison was used for left [...] (Bezet) 546 ms MUSE SYSTEM Calculated P Mcguffey 21 degrees MUSE SYSTEM Calculated R Mcguffey 21 degrees MUSE SYSTEM Calculated T Mcguffey 0 degrees MUSE SYSTEM INTERPRETATION Sinus bradycardia Possible Lateral infarct (cited on or before 29-JUL-2023) Prolonged QT Abnormal ECG When compared with ECG of 29-JUL-2023 08:47, Premature atrial complexes are no longer Present Criteria for Septal infarct are no longer Present Nonspecific T wave abnormality, improved in Inferior leads QT has lengthened Confirmed by MD Kinsey Daniel ([id number]) on 08/29/2023 3:51:39 PM MUSE SYSTEM 08/29/2023 6:04 AM EDT 08/29/2023 3:51 PM EDT Archie Mcmanus MD ECG ORDERABLES Performing Organization Address City/[facility]/ZIP Co de Phone Number MUSE SYSTEM * CRP, acute inflammation (08/29/2023 4:01 AM EDT) C-Reactive Protein <3.0 <=4.9 mg/L [facility] Blood Venous Draw / Unknown 08/29/2023 4:01 AM EDT 08/29/2023 4:13 AM EDT Narrative Resulting Agency Comment Spec In Lab Eufemia Copeland MD CHEMISTRY ORDERABL ES [facility] [place] [address] * Sedimentation rate (08/29/2023 4:01 AM EDT) Sedimentation Rate Automated 11 2 - 39 mm/hr [facility] HEMATOLOGY ORDERAB LES Performing Organization Address City/[facility]/[place] [address] * Green Tube HOLD (08/29/2023 4:01 AM EDT) Green Hold Sample in lab. [facility] Blood Venous Draw / Unknown 08/29/2023 4:01 AM EDT 08/29/2023 4:09 AM EDT Archie Mcmanus MD CHEMISTRY ORDERABLES Performing Organization Address [facility]/[place] Co de Phone Number [facility] [place] [address] * Differential, Automated (08/29/2023 4:01 AM EDT) Pathologist [facility] Neutrophil % 65.6 % [facility] Neutrophil Absolute 5.23 1.70 - 6.10 x10(3)/[facility] Lymph % 21.4 % [facility] Lymphocytes Abs 1.7 0.9 - 3.2 x10(3)/[facility] Monocyte % 8.5 % [facility] Monocyte Abs 0.7 0.3 - 0.9 x10(3)/[facility] Eos % 4.0 % [facility] Eosinophils Abs 0.3 0.0 - 0.4 x10(3)/[facility] Basophil % 0.4 % [facility] Baso Absolute 0.0 0.0 - 0.1 x10(3)/[facility]OR[facility] Immature Gran % 0.10 % [facility] Comment: Immature granulocytes(IG's)percentage and absolute count will include metamyelocytes, myelocytes, and promyelocytes. Blood smears from CBCs yielding IG's will be scanned manually for concordance. If this scan disagrees with the automated IG or if promyelocytes are noted, a manual differential will be performed. Immature Gran Absolute 0.01 0.00 - 0.04 x10(3)/[facility] Blood 08/29/2023 4:01 AM EDT 08/29/2023 4:08 AM EDT Narrative Resulting Agency Comment Spec In Lab Archie Mcmanus MD HEMATOLOGY ORDERABLE S [facility] [place] [address] * (ABNORMAL) Hemogram (08/29/2023 4:01 AM EDT) White Blood Cell 8.0 4.0 - 9.5 x10(3)/ L [facility] Red Blood Cell 3.91(L) 4.00 - 5.21 x10(6)/[facility] Hemoglobin 12.6 11.7 - 15.5 g/dL [facility] Hematocrit 37.6 35.7 - 45.8 % [facility] Mean Cell Volume 96.2(H) 82.6 - 94.[address] [facility] Mean Cell Hemoglobin 32.2(H) 27.1 - 32.[address] [facility] Mean Cell Hemoglobin Concentration 33.5 31.7 - 35.0 g/dL [facility] Platelet 197 145 - 357 x10(3)/ L [facility] RDW Standard Deviation 46.7(H) 37.0 - 46.[address] [facility] RDW coefficient of variation 13.3 11.5 - 14.1 % [facility] Mean Platelet Volume 10.4 7.6 - 12.[address] [facility] NRBC% auto 0.0 % [facility] NRBC Absolute 0.000 0.000 - 0.000 x10(3)/ L [facility] Blood 08/29/2023 4:01 AM EDT 08/29/2023 4:08 AM EDT Narrative Resulting Agency Comment Spec In Lab Archie Mcmanus MD HEMATOLOGY ORDERABLE S Performing Organization Address [facility]/ZIP Co de Phone Number [facility] [place] [address] * (ABNORMAL) Heparin (unfractionated) Level (08/29/2023 4:01 AM EDT) UF Heparin 1.04(Crit ical) IU/mL [facility] Comment: Critical Result called by ?? CORINNEJM CRITICAL Results read back by: ? jayson [...] HEMATOLOGY ORDERABLE S Performing Organization Address [facility]/ZIP Co de Phone Number [facility] [place] [address] * (ABNORMAL) Basic Metabolic Panel (non-fasting) (08/29/2023 4:01 AM EDT) Glucose 106 65 - 199 mg/dL [facility] Comment:Diabetes: >=200 mg/d L plus symptoms Blood Urea Nitrogen 24(H) 8 - 18 mg/dL [facility] Creatinine 1.18 0.70 - 1.20 mg/dL [facility] Sodium 141 135 - 145 mmol/L [facility] Potassium 3.5 3.5 - 5.0 mmol/L [facility] Comment: Please note: ??Patients with WBC >100,000 may have falsely elevated Potassium levels. ??For accurate Potassium quantification in these patients send serum separator tube (gold top) for subsequent determinations. ??Contact the Clinical Chemistry Laboratory if there are any questions. Chloride 107 98 - 107 mmol/L [facility] Carbon Dioxide 22 22 - 31 mmol/L [facility] Anion Gap 12 5 - 15 mmol/L [facility] Calcium 8.8 8.5 - 10.5 mg/dL [facility] Est Glomerular Filtration Rate 55(L) >=60 mL/min/1. 73 m?? [facility] Comment: This patient's estimated GFR [...] In Lab Archie Mcmanus MD CHEMISTRY ORDERABLES [facility] [place] [address] * (ABNORMAL) Troponin (08/29/2023 12:31 AM EDT) Troponin-T, High Sensitivity 31(H) <=14 ng/L [facility] Comment: [...] can be found in the [facility] Test Catalog Troponin - [facility] Test Catalog Reference: Fourth [place] Definition of Myocardial Infarction. Journal of the [place] [employer] 2018;72:4319-6003 Blood 08/29/2023 12:3 1 AM EDT 08/29/2023 12:35 AM EDT Narrative Resulting Agency Comment Spec In Lab Archie Mcmanus MD CHEMISTRY ORDERABLES Performing Organization Address City/State/[place] Co de Phone Number [facility] [place] [address] * Differential, Automated (08/28/2023 9:07 PM EDT) Neutrophil % 59.8 % [facility] Neutrophil Absolute 4.06 1.70 - 6.10 x10(3)/[facility] LABORATORY Lymph % 28.8 % [facility] Lymphocytes Abs 2.0 0.9 - 3.2 x10(3)/[facility] LABORATORY Monocyte % 5.7 % [facility] Monocyte Abs 0.4 0.3 - 0.9 x10(3)/[facility] LABORATORY Eos % 4.6 % [facility] Eosinophils Abs 0.3 0.0 - 0.4 x10(3)/[facility] LABORATORY Basophil % 0.7 % [facility] Baso Absolute 0.0 0.0 - 0.1 x10(3)/[facility] LABORATORY Immature Gran % 0.40 % [facility] Comment: Immature granulocytes(IG's)percentage and absolute count will include metamyelocytes, myelocytes, and promyelocytes. Blood smears from CBCs yielding IG's will be scanned manually for concordance. If this scan disagrees with the automated IG or if promyelocytes are noted, a manual differential will be performed. Immature Gran Absolute 0.03 0.00 - 0.04 x10(3)/[facility] LABORATORY Blood 08/28/2023 9:07 PM EDT 08/28/2023 9:12 PM EDT Narrative Resulting Agency Comment Spec In Lab Archie Mcmanus MD HEMATOLOGY ORDERABLE S [facility] [place] [address] * (ABNORMAL) Hemogram (08/28/2023 9:07 PM EDT) White Blood Cell 6.8 4.0 - 9.5 x10(3)/ L [facility] Red Blood Cell 4.39 4.00 - 5.21 x10(6)/ L [facility] Hemoglobin 14.1 11.7 - 15.5 g/dL [facility] Hematocrit 42.2 35.7 - 45.8 % [facility] Mean Cell Volume 96.1(H) 82.6 - 94.[address] [facility] Mean Cell Hemoglobin 32.1(H) 27.1 - 32.[address] [facility] Mean Cell Hemoglobin Concentration 33.4 31.7 - 35.0 g/dL [facility] Platelet 234 145 - 357 x10(3)/mc L [facility] RDW Standard Deviation 47.3(H) 37.0 - 46.[address] [facility] RDW coefficient of variation 13.3 11.5 - 14.1 % [facility] Mean Platelet Volume 10.3 7.6 - 12.[address] [facility] NRBC% auto 0.0 % [facility] NRBC Absolute 0.000 0.000 - 0.000 x10(3)/mc L [facility] Blood 08/28/2023 9:07 PM EDT 08/28/2023 9:12 PM EDT Narrative Resulting Agency Comment Spec In Lab Archie Mcmanus MD HEMATOLOGY ORDERABLE S [facility] [place] [address] * (ABNORMAL) Heparin (unfractionated) Level (08/28/2023 9:07 PM EDT) UF Heparin 1.90(Crit ical) IU/mL [facility] Comment: Critical Result called by ?? DARRENAJM CRITICAL Results read back by: ? katalina [...] Lab Archie Mcmanus MD HEMATOLOGY ORDERABLE S [facility] [place] [address] * Lipid Panel (Reflex Direct LDL) (08/28/2023 9:07 PM EDT) Cholesterol, Total 203 mg/dL [facility] Comment: Desirable: ? <200 mg/dL Borderline High: 200-239 mg/dL Higher: ?>si=524 mg/dL Triglyceride 146 mg/dL [facility] Comment: Normal: ?<150 mg/dL Borderline High: 150-199 mg/dL High: ?200-499 mg/dL Very High: ? >cz=806 mg/dL HDL Cholesterol 52 mg/dL [facility] Comment: Females: High Risk: <50 mg/dL Males: High Risk: <40 mg/dL LDL Cholesterol 122 mg/dL [facility] Comment: Desirable: ? <100 mg/dL Above Desirable: 100-129 mg/dL Borderline High: 130-159 mg/dL High: ?160-189 mg/dL Very High: ? >ok=190 mg/dL Lipid Interpretation See Note [facility] Comment: It is important to [...] even lower. ACC/AHA Guidelines (most recently Ysabel bobby al. JACC 12/09/21): For individuals with atherosclerotic cardiovascular disease (ASCVD)or LDL >ab=115 mg/dL, use a high-intensity statin (40-80 mg [...] In Lab Archie Mcmanus MD CHEMISTRY ORDERABLES [facility] [place] [address] * (ABNORMAL) pro-Brain Natriuretic Peptide (08/28/2023 9:07 PM EDT) NT-proBNP 2,854(H) <=124 pg/mL [facility] Blood 08/28/2023 9:07 PM EDT 08/28/2023 9:12 PM EDT Narrative Resulting Agency Comment Spec In Lab Archie Mcmanus MD CHEMISTRY ORDERABLES [facility] [place] [address] * (ABNORMAL) Troponin (08/28/2023 9:07 PM EDT) Troponin-T, High Sensitivity 31(H) <=14 ng/L [facility] Comment: [...] can be found in the [facility] Test Catalog Troponin - [facility] Test Catalog Reference: Fourth [place] Definition of Myocardial Infarction. Journal of the [place] [employer] 2018;72:3055-1289 Blood 08/28/2023 9:07 PM EDT 08/28/2023 9:12 PM EDT Narrative Resulting Agency Comment Spec In Lab Archie Mcmanus MD CHEMISTRY ORDERABLES Performing Organization Address City/[facility]/ZIP Co de Phone Number [facility] [place] [address] * (ABNORMAL) Hepatic Function Panel (08/28/2023 9:07 PM EDT) [facility] Protein, Total 6.6 6.1 - 8.0 g/dL [facility] Albumin 4.2 3.2 - 5.2 g/dL [facility] Aspartate Aminotransferase 32(H) 0 - 30 unit/L [facility] Alanine Aminotransferase 28 0 - 30 unit/L [facility] Alkaline Phosphatase 52 35 - 105 unit/L [facility] Bilirubin, Total 0.6 0.2 - 1.3 mg/dL [facility] Bilirubin, Direct 0.2 0.0 - 0.3 mg/dL [facility] Blood 08/28/2023 9:07 PM EDT 08/28/2023 9:12 PM EDT Narrative Resulting Agency Comment Spec In Lab Archie Mcmanus MD CHEMISTRY ORDERABLES Performing Organization Address City/State/[place] Co de Phone Number [facility] [place] [address] * (ABNORMAL) Basic Metabolic Panel (non-fasting) (08/28/2023 9:07 PM EDT) [facility] Glucose 95 65 - 199 mg/dL [facility] Comment:Diabetes: >=200 mg/d L plus symptoms Blood Urea Nitrogen 22(H) 8 - 18 mg/dL [facility] Creatinine 1.13 0.70 - 1.20 mg/dL [facility] Sodium 140 135 - 145 mmol/L [facility] Potassium 3.5 3.5 - 5.0 mmol/L [facility] Comment: Please note: ??Patients with WBC >100,000 may have falsely elevated Potassium levels. ??For accurate Potassium quantification in these patients send serum separator tube (gold top) for subsequent determinations. ??Contact the Clinical Chemistry Laboratory if there are any questions. Chloride 105 98 - 107 mmol/L [facility] Carbon Dioxide 21(L) 22 - 31 mmol/L [facility] Anion Gap 14 5 - 15 mmol/L [facility] Calcium 9.3 8.5 - 10.5 mg/dL [facility] Est Glomerular Filtration Rate 58(L) >=60 mL/min/1. 73 m?? [facility] Comment: This patient's estimated GFR [...] In Lab Archie Mcmanus MD CHEMISTRY ORDERABLES [facility] [place] [address] * Magnesium (08/28/2023 9:07 PM EDT) Magnesium 1.05 0.69 - 1.07 mmol/L [facility] Blood 08/28/2023 9:07 PM EDT 08/28/2023 9:12 PM EDT Narrative Resulting Agency Comment Spec In Lab Archie Mcmanus MD CHEMISTRY ORDERABLES Performing Organization Address City/[facility]/ZIP Co de Phone Number [facility] [place] [address] documented in this encounter Visit Diagnoses Diagnosis [...] 2.5 mg, Oral, DAILY, First dose on 08/30/23 at 1545, Until Discontinued, Routine Given 09/07/2023 9:22 AM EDT 2.5 mg Given 09/06/2023 8:05 AM EDT 2.5 mg Given 09/05/2023 8:38 AM EDT 2.5 mg apixaban (Eliquis) tablet 5 mg 5 mg, Oral, 2 TIMES DAILY, First dose on 08/30/23 at 1800, Until Discontinued, Anticoagulant, Routine, apixaban (Eliquis) Indication: Non-Valvular Atrial Fibrillation Given 09/10/2023 8:22 AM EDT 5 mg Given 09/09/2023 8:40 PM EDT 5 mg Given 09/09/2023 8:18 AM EDT 5 mg aspirin chewable tablet 81 mg 81 mg, Oral, DAILY, First dose on 08/29/23 at 0900, Until Discontinued, Routine Given 09/10/2023 [...] 75 mg, Oral, DAILY, First dose on 08/29/23 at 0900, Until Discontinued, Routine Given 08/30/2023 [...] 80 mg, Intravenous, ONCE, 1 dose, On 08/31/23 at 1345 Given 08/31/2023 1:25 PM EDT [...] dose, Starting on 08/28/23 at 2038, Until 08/28/23 at 2030, Samantha Patino: cabinet [...] 2 mg, Intravenous, ONCE, 1 dose, On Wed09/02/23 at 0400, Routine Given 09/02/2023 3:14 AM [...] Intravenous, ONCE PRN, 1 dose, Starting on 08/29/23 at 1135, Until Wed08/29/23 at 1002, for [...] 40 mEq, Oral, ONCE, 1 dose, On 08/29/23 at 1200, potassium chloride ER particle/crystal tablets [...] 40 mEq, Oral, ONCE, 1 dose, On 08/29/23 at 2100, potassium chloride ER particle/crystal tablets [...] 40 mEq, Oral, ONCE, 1 dose, On 09/03/23 at 0645, 20 mEq tablet may be [...] on 09/04/23 at 0833, Until Wed09/10/23 at 1932, potassium [...] Oral, 2 TIMES DAILY, First dose on [facility] 08/28/23 at 2145, Until Discontinued, DO NOT [...] 25 mg, Oral, ONCE, 1 dose, On Wed09/03/23 at 1845, Maximum dose: 200mg in 24 [...] 40 mg, Oral, ONCE, 1 dose, On Aura 09/02/23 at 1530, Routine Given 09/02/2023 2:57 PM [...] Routine, apixaban (Eliquis) Indication: Non-Valvular Atrial Fibrillation 39 (Given - Provider: Chayo Painting RN)2056 (Given - Provider: Jo Ann Bello, ERWIN) 08 (Given - Provider: Tim Cardoza RN)2039 (Given - Provider: Jo Ann Bello RN) 08 (Given - Provider: Tim Cardoza RN) aspirin chewable tablet 81 mg 81 mg, Oral, DAILY, First dose on Wed08/29/23 at 0900, Until Discontinued, Routine 0839 (Given [...] Painting RN)2099 (Given - Provider: Jo Ann Bello, ERWIN) 08 (Given - Provider: Tim Cardoza, ERWIN)2038 (Given - Provider: Jo Ann Bello RN) 08 (Given - Provider: Tim Cardoza RN) rOPINIRole (Requip) tablet 2 mg 2 mg, Oral, 2 TIMES DAILY, First dose on 08/28/23 at 2145, Until Discontinued, Routine 0839 (Given - Provider: Chayo Painting RN)2058 (Given - Provider: Jo Ann Bello, ERWIN) 08 (Given - Provider: Tim Cardoza, ERWIN)2038 (Given - Provider: Jo Ann Bello RN) 08 (Given - Provider: Tim Cardoza RN) sodium chloride 0.9 % (flush) (BD PosiFlush Normal Saline 0.9) flush 5 mL 5 mL, Intravenous, 2 TIMES DAILY, First dose on 08/28/23 at 2145, Until Discontinued, Routine 0842 (Given - Provider: Chayo Painting RN)2100 (Given - Provider: Jo Ann Bello, ERWIN) 08 (Given - Provider: Tim Cardoza, ERWIN)2040 (Given - Provider: Jo Ann Bello RN) 08 (Given - Provider: Tim Cardoza, ERWIN) spironolactone (Aldactone) tablet 25 mg 25 mg, Oral, DAILY, First dose on 08/29/23 at 0900, Until Discontinued, DO NOT SPLIT, CRUSH OR OPEN, Routine 0840 (Given - Provider: Chayo Painting RN) 08 (Given - Provider: Tim Cardoza, ERWIN) 08 (Given - Provider: Tim Cardoza, ERWIN) topiramate (Topamax) tablet 100 mg 100 mg, Oral, NIGHTLY, First dose on 08/28/23 at 2145, Until Discontinued, Routine 2058 (Given - Provider: Jo Ann Bello RN) 2037 (Given - Provider: Jo Ann Bello, ERWIN) torsemide (Demadex) tablet 40 mg 40 mg, Oral, 2 TIMES DAILY, First dose (after last modification) on Wed09/07/23 at 2115, Until Discontinued, Routine 0839 (Given - Provider: Chayo Painting RN)1707 (Given - Provider: Chayo Painting RN) 0818 (Given - Provider: Tim Cardoza RN)1608 (Given - Provider: Tim Cardoza RN) 0822 [...] Subcutaneous, ONCE PRN, 1 dose, Starting on 08/28/23 at 2048, Until Wed09/10/23 at 1932, for discomfort with PIV insertion, Routine LORazepam (Ativan) tablet 0.5 mg 0.5 mg, Oral, EVERY 6 HOURS PRN, Starting on Wed09/03/23 at 1049, Until Wed09/10/23 at 1932, Nausea, Vomiting, Routine melatonin tablet 3 mg 3 mg, Oral, NIGHTLY PRN, Starting on Wed08/28/23 at 2048, Until Wed09/10/23 at 1932, Sleep, Sleep, Routine 2100 (Given - Provider: Jo Ann Bello RN) 2039 (Given - Provider: Jo Ann Bello RN) nitroGLYcerin (Nitrostat) disintegrating tablet 0.4 mg 0.4 mg, Sublingual, EVERY 5 MIN PRN, Starting on 08/28/23 at 2048, Until Wed09/10/23 at 1932, Chest [...] on 08/28/23 at 2049, Until Wed09/10/23 at 193, flush, Flush pertains [...] 2100 (Given - Provider: Jo Ann Bello, RN) 2039 (Given - Provider: Jo Ann Bello, RN) documented in this encounter Care Teams Community Integration Specialist Relationship Specialty Start Date End Date Polo Pearce PA [facility] [address] [place] [address] PCP - General Internal Medicine 06/09/21 documented as of this encounter
--- OUTSIDE RECORDS SUMMARY | 2023-10-20 19:51 | XMS_ITS | Encounter Summary ---
Author Organization [facility] [place] [address] Care Team Providers Care Dietetics Teacher Name Role Phone Polo Pearce Primary Care Provider [phone] Reason for Referral * Diagnostic Test (Routine) - Closed Specialty Diagnoses / Procedures Referred By Contac t Referred To Contact Radiology Diagnoses Chest pain, unspecified type Procedures NM PET CT Cardiac Pharmacologic Stress CT Component Porsha Mcdaniels MD [facility] [place] [address] [place] [address] Referral ID Status Reason Start Date Expiration Date V isits Requested Visits Authorized [id number] Closed Specialty Service Requested 08/03/2023 10/01/2023 1 1 * Diagnostic Test (Routine) - Closed Specialty Diagnoses / Procedures Referred By Contac t Referred To Contact Radiology Diagnoses Chest pain, unspecified type Procedures NM PET CT Cardiac Pharmacologic Stress and Rest Porsha Mcdaniels MD [facility] [place] [address] [place] [address] Referral ID Status Reason Start Date Expiration Date V isits Requested Visits Authorized [id number] Closed Specialty Service Requested 08/03/2023 10/01/2023 1 1 * Diagnostic Test (Routine) - New Request Specialty Diagnoses / Procedures Referred By Contac t Referred To Contact Cardiology Diagnoses Chest pain, unspecified type Procedures Nuclear Pharmacologic Stress Cardiology (PET CT Mobile) Porsha Mcdaniels MD [facility] [place] [address] [facility] [place] [address] Referral ID Status Reason Start Date Expiration Date Visits Requested Visits Authorized [id number] New Request Specialty Service Requested 07/29/2023 07/28/2024 1 1 Reason for Visit * Consultation (Routine) - Closed Specialty Diagnoses / Procedures Referred By Contac t Referred To Contact Cardiology Diagnoses Heart failure with preserved ejection fraction, unspecified HF chronicity [place]. thorough evaluation performed to date. Jaspreet Kinsey MD [facility] [place] [address] Porsha Mcdaniels MD [facility] [place] [address] Referral ID Status Reason Start Date Expiration Date V isits Requested Visits Authorized [id number] Closed Consult, Test & Treat 06/09/2023 06/08/2024 1 1 Encounter Details Date Type Department Care Team (Late st Contact Info) Description 07/29/2023 8:00 AM EDT Office Visit Cardiology at [address] [address] Porsha Mcdaniels MD [facility] [place] [address] Chest pain, unspecified type Social History Tobacco [...] from the original note were not included. Formerly [facility] [place] [address] Referring Provider: Jaspreet Kinsey MD [facility] [place] [address] Reason for Consultation / Chief Complaint: [place] [...] [place]. She follows with Dr. Kinsey in [place]. She underwent CCTA 09/27 that showed mild disease in her LAD. She also had a cardiac cath in 2019 with normal cors[facility] due to exertional chest pressure and [...] , Rfl: fluticasone propionate (FLONASE) 50 mcg/actuation [place], Suspension, 1 spray by Each Nare route [...] 2+ radial pulse LUE: 2+ radial pulse TRANSPORTATION DISPATCHER: Normal mentation. Moves all extremities without limitation. [...] Porsha Mcdaniels MD Section of Interventional Cardiology [facility] Set Up Mechanic Heading Machinescommunity health agent [employer] [facility] [employer] [facility] 07/29/2023 documented in this encounter Plan of Treatment Upcoming Encounters Date Type Department Care Team (Late st Contact Info) Description 10/21/2023 10:30 AM EDT Hospital Encounter [place] [address] [place] [address] 10/21/2023 11:30 AM EDT App[place]ment [place] [address] [place] [address] 10/21/2023 12:30 PM EDT Appointment [place] [address] Mary Reyes, PARTS COUNTER SALES PERSON [facility] [place] [address] 10/21/2023 1:30 PM EDT Appointment [place] [address] Mary Reyes [facility] [place] [address] 10/21/2023 2:30 PM EDT Appointment [place] [address] Mary Reyes, [place] [address] 10/26/2023 4:00 PM EDT Office Visit Cardiology at [address] [phone] Jaspreet Kinsey MD [facility] [place] [address] 10/28/2023 9:00 AM EDT Office [place] [address] 10/29/2023 10:00 AM EDT Clinical [place] [address] 10/29/2023 10:15 AM EDT Procedure [place] [address] 11/01/2023 5:00 PM EDT Office [place] [address] Selene Browning, PhD [facility] [place] [address] 11/22/2023 4:40 PM EDT Office Visit Cardiology at [address] [address] Porsha Mcdaniels MD [facility] [place] [address] 12/13/2023 10:00 AM EDT Clinical [place] [address] [facility] [place] [address] documented as of this encounter Procedures Procedure Name Priority Date/Time Associated Diagnosis Comments EKG 12-LEAD Routine 07/29/2023 8:47 AM EDT Chest pain, unspecified type documented in this encounter Results * NM PET CT Cardiac Pharmacologic Stress CT Component (08/17/2023 2:38 PM EDT) Voices WORKSTATION ID [id number] [facility] Anatomical Region Laterality Modality Positron Emissio n [...] signed by: Clay Stanton MD, [facility] ([phone]), at 08/18/2023 2:49 PM Narrative 08/18/2023 2:49 [...] Coronary calcifications. Bilateral ground glass opacities are [id number] Procedure Note Clay Stanton MD - 08/18/2023 [...] Coronary calcifications. Bilateral ground glass opacities are [id number] IMPRESSION Moderate-sized scar in the apical septum [...] signed by: Clay Stanton MD, [facility]([phone]), at 08/18/2023 2:49 PM Porsha Mcfarlane MD IMG PET ORDERABLES * NM PET CT Cardiac Pharmacologic Stress and Rest (08/17/2023 2:38 PM EDT) WORKSTATION ID [id number] RAD Anatomical Region Laterality Modality Positron Emissio [...] signed by: Clay Stanton MD, [facility] ([phone]), at 08/18/2023 2:49 PM Narrative 08/18/2023 2:49 [...] Coronary calcifications. Bilateral ground glass opacities are [id number] Procedure Note Clay Stanton MD - 08/18/2023 EXAMINATION: [place] PET CT CARDIAC PHARMACOLOGIC STRESS AND REST, [place] PET CTCARDIAC PHARMACOLOGIC STRESS CT COMPONENT CLINICAL [...] Coronary calcifications. Bilateral ground glass opacities are [id number] IMPRESSION Moderate-sized scar in the apical septum [...] signed by: Clay Stanton MD, [facility]([phone]), at 08/18/2023 2:49 PM Porsha Mcfarlane MD [...] (Bezet) 418 ms MUSE SYSTEM Calculated P [place] 6 degrees MUSE SYSTEM Calculated R [place] 34 degrees MUSE SYSTEM Calculated T [place] -73 degrees MUSE SYSTEM INTERPRETATION Sinus bradycardia [...] type documented in this encounter Care Teams Dietetics Teacher Relationship Specialty Start Date End Date Polo Pearce PA [address] [place] [address] PCP - General Internal Medicine 06/09/21 documented as of this encounter
--- OUTSIDE RECORDS SUMMARY | 2023-10-20 19:51 | XMS_ITS | Encounter Summary ---
Author Organization On License Of [place] [address] Care Team Providers Care Senior Data Warehouse Developer Name Role Phone Polo Pearce Primary Care Provider [phone] Reason for Referral * Diagnostic Test (Routine) - New Request Specialty Diagnoses / Procedures Referred By Contjulita t Referred To Contact Cardiology Diagnoses Chest pain, unspecified type Procedures Nuclear Pharmacologic Stress Cardiology (PET CT Mobile) Porsha Mcdaniels MD [facility] [place] [address] [facility] [place] [address] Referral ID Status Reason Start Date Expiration Date Visits Requested Visits Authorized [id number] New Request Specialty Service Requested 07/29/2023 07/28/2024 1 1 Reason for Visit * Diagnostic Test (Routine) - New Request Specialty Diagnoses / Procedures Referred By Contac t Referred To Contact Cardiology Diagnoses Chest pain, unspecified type Procedures Nuclear Pharmacologic Stress Cardiology (PET CT Mobile) Porsha Mcdaniels MD [facility] [place] [address] [facility] [place] [address] Referral ID Status Reason Start Date Expiration Date Visits Requested Visits Authorized [id number] New Request Specialty Service Requested 07/29/2023 07/28/2024 1 1 Encounter Details Date Type Department Care Team (Latest Contact Info) Description 08/17/2023 11:53 AM EDT - 08/17/2023 11:59 PM EDT Hospital Encounter [facility]-Invasive [facility] [place] [address] Porsha Mcdaniels MD [facility] [place] [address] Chest pain, unspecified type Discharge Disposition: Home Social History Tobacco Use Types Packs/Day Years Used Date Smoking Tobacco: Never Smokeless Tobacco: Never Alcohol Use Standard Drinks/Week Comments Never 0 (1 standard drink = 0.6 oz pur e alcohol) [facility] Utilities Answer Date Recorded In the past 12 months has th e Active Tax [employer] Accounting, gas, oil, or water [employer] threatened to shut off services in your [...] as needed. fluticasone propionate (FLONASE) 50 mcg/actuation [place], Suspension 1 spray by Each Nare route [...] AM EDT Hospital Encounter [place] [address] Mary Reyes [facility] [place] [address] 10/21/2023 11:30 AM EDT Appointment [place] [address] Mary Re[place] [address] 10/21/2023 12:30 PM EDT Appointment [place] [phone] Mary Re[place] [address] 10/21/2023 1:30 PM EDT Appointment [place] [address] Mary Re[place] [address] 10/21/2023 2:30 PM EDT Appointment [place] [address] [place] [address] 10/26/2023 4:00 PM EDT Office Visit Cardiology at [address] [address] Jaspreet Kinsey MD [facility] [place] [address] 10/28/2023 9:00 AM EDT Office Visit [place] [address] 10/29/2023 10:00 AM EDT Clinical Support [place] [address] 10/29/2023 10:15 AM EDT Procedure visit [place] [address] 11/01/2023 5:00 PM EDT Office Visit Gastroenterology at [place] [phone] Selene Browning, PhD [facility] [place] [address] 11/22/2023 4:40 PM EDT Office Visit Cardiology at [place] [phone] Porsha Mcdaniels MD [facility] [place] [address] 12/13/2023 10:00 AM EDT Clinical Support [place] [phone] [facility] [place] [address] documented as of this encounter Procedures Procedure [...] documented in this encounter Care Teams Senior Data Warehouse Developer Relationship Specialty Start Date End Date Polo Pearce PA [address] [place] [address] PCP - General Internal Medicine 06/09/21 documented as of this encounter
--- OUTSIDE RECORDS SUMMARY | 2023-10-20 19:51 | XMS_ITS | Encounter Summary ---
Author Organization Formerly [facility] Address [facility] [place] [address] Care Team Providers Care Powder Nipper Name Role Phone Polo Pearce Primary Care Provider [phone] Encounter Details Date Type Department Care Team [...] AM EDT Hospital Encounter [place] [address] Mary Reyes DIESEL POWER SHOVEL OPERATOR [facility] [place] [address] 10/21/2023 11:30 AM EDT Appointment [place] [address] Mary Reyes DIESEL POWER SHOVEL OPERATOR [facility] [place] [address] 10/21/2023 12:30 PM EDT Appointment [place] [address] Mary Reyes DIESEL POWER SHOVEL OPERATOR [facility] [place] [address] 10/21/2023 1:30 PM EDT Appointment [place] [phone] Mary Reyes DIESEL POWER SHOVEL OPERATOR [facility] [place] [address] 10/21/2023 2:30 PM EDT Appointment [place] [phone] Mary Reyes DIESEL POWER SHOVEL OPERATOR [facility] [place] [address] 10/26/2023 4:00 PM EDT Office Visit Cardiology at [address] [phone] Jaspreet Kinsey MD [facility] [place] [address] 10/28/2023 9:00 AM EDT Office Visit [place] [address] 10/29/2023 10:00 AM EDT Clinical Support [place] [address] 10/29/2023 10:15 AM EDT Procedure visit [place] [address] 11/01/2023 5:00 PM EDT Office Visit [place] [phone] Selene Browning, PhD [facility] [place] [address] 11/22/2023 4:40 PM EDT Office Visit Cardiology at [address] [phone] Porsha Mcdaniels MD [facility] [place] [address] 12/13/2023 10:00 AM EDT Clinical Support [place] [address] Lucero Romero, ALVA [facility] [place] [address] documented as of this encounter Visit Diagnoses Not on filedocumented in this encounter Care Teams Powder Nipper Relationship Specialty Start Date End Date Polo Pearce PA [facility] [address] [place] [address] PCP - General Internal Medicine 06/09/21 documented as of this encounter
--- OUTSIDE RECORDS SUMMARY | 2023-10-20 19:51 | XMS_ITS | Encounter Summary ---
[place] [address] Care Team Providers Care General Surgeon Name Role Phone Polo Pearce Primary Care Provider [phone] Reason for Referral * Diagnostic Test (Routine) - New Request Specialty Diagnoses / Procedures Referred By Jayant harris Referred To Contact Diagnoses Mesenteric ischemia Procedures Duplex Study Visceral Arteries, Comp Judith Butler APRN [facility] [place] [address] [facility] Vascular Lab [address] [place] [phone] Referral ID Status Reason Start Date Expiration Date Visits Requested Visits Authorized [id number] New Request Specialty Service Requested 08/03/2023 08/02/2024 1 1 Encounter Details Date Type Department Care Team (Late st Contact Info) Description 08/03/2023 9:30 AM EDT Office Visit [place] [address] Judith Butler APRN [facility] [place] [address] Mesenteric ischemia Social History Tobacco Use Types Packs/Day Years Used Date Smoking Tobacco: Never Smokeless Tobacco: Never Alcohol Use Standard Drinks/Week Comments Never 0 (1 standard drink = 0.6 oz pur e alcohol) [facility] Utilities Answer Date Recorded In [...] slept in a intermediate (including now)? No 06/15/2023 DH IPV Inpatient [...] as needed. fluticasone propionate (FLONASE) 50 mcg/actuation [place], Suspension 1 spray by Each Nare route [...] Text Report Department: Vascular Surgery Lab Patient: [id number] (ROHAN, MELINDA) CPT: [id number] Referring Physician: MAMIE LARRY Phone: Indications: S/p SMA stenting (07/01) one month f/u, ? 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 Therefore, the curre nt interpretation is based on [place] artery thresholds. Previous Celiac/Mesenteric Studies: Date SMA PSV EDV Celiac PSV EDV 427 91 998 09 3355/04/29 289 27 116 20 Current Exam 316 [...] Time Provider Department Center 08/17/2023 1:15 PM [facility] NM PET MOBILE MH Nuc Med [facility] Rad 08/25/2023 10:00 AM Mary Reyes APRN [facility] [place] GASTRO [facility] [place] 10/26/2023 4:00 PM Jaspreet Kinsey MD [facility] Cardio [facility] 11/22/2023 4:40 PM Porsha Mcdaniels MD [facility] [place] CARD 4A [facility] [place] Judith Butler APRN Department of Vascular Surgery documented in this encounter Plan of Treatment Upcoming Encounters Date Type Department Care Team (Late st Contact Info) Description 10/21/2023 10:30 AM EDT Hospital Encounter [place] [address] [place] [address] 10/21/2023 11:30 AM EDT Appointment [place] [address] [place] [address] 10/21/2023 12:30 PM EDT Appointment [place] [address] Mary Reyes JAVA FLEX DEVELOPER [place] [address] 10/21/2023 1:30 PM EDT Appointment [place] [address] Mary Reyes JAVA FLEX DEVELOPER [place] [address] 10/21/2023 2:30 PM EDT Appointment Nuclear Medicine at [place] [phone] Mary Reyes APRN [facility] [place] [address] 10/26/2023 4:00 PM EDT Office Visit Cardiology at [address] [address] Jaspreet Kinsey MD [facility] [place] [address] 10/28/2023 9:00 AM EDT Office Visit [place] [address] 10/29/2023 10:00 AM EDT Clinical [place] [address] 10/29/2023 10:15 AM EDT Procedure visit [place] [address] 11/01/2023 5:00 PM EDT Office Visit Gastroenterology at [place] [phone] Selene Browning, [facility] [place] [address] 11/22/2023 4:40 PM EDT Office Visit Cardiology at [address] [phone] Porsha Mcdaniels MD [facility] [place] [address] 12/13/2023 10:00 AM EDT Clinical [place] [phone] [facility] [place] [address] documented as of this encounter Results * Duplex Study Visceral Arteries, Comp (10/08/2023 8:22 AM EDT) VB Text Report Department: Vascular Surgery Lab Patient: [id number] (LOIDA ROQUE) CPT: [id number] Referring Physician: JUDITH BUTLER ?? Phone: Indications: [...] within mesenteric artery stents may differ from [place] arteries, with thresholds for diagnosis of significant stenosis likely being somewhat higher in stented arteries than [place].% To date, there is no evidence based consensus of stent velocity criteria. Therefore, the current interpretation is based on [place] artery thresholds. Previous Celiac/Mesenteric Studies: Date ? [...] [facility] 10/08/2023 8:22 AM EDT Judith Butler APRN [facility] documented in this encounter Visit Diagnoses Diagnosis Mesenteric ischemia Unspecified vascular insufficiency of intestine documented in this encounter Care Teams General Surgeon Relationship Specialty Start Date End Date Polo Pearce PA [address] [place] [address] PCP - General Internal Medicine 06/09/21 documented as of this encounter
--- OUTSIDE RECORDS SUMMARY | 2023-10-20 19:51 | XMS_ITS | Encounter Summary ---
Author Organization [facility] Address [facility] [place] [address] Care Team Providers Care Tangled Yarn Worker Name Role Phone Polo Pearce Primary Care Provider [phone] Encounter Details Date Type Department Care Team (Latest Contact Info) Description 08/17/2023 Travel Social History Tobacco Use Types Packs/Day Years Used Date Smoking Tobacco: Never Smokeless Tobacco: Never Alcohol Use Standard Drinks/Week Comments Never 0 (1 standard drink = 0.6 oz pur e alcohol) [facility] Utilities Answer Date Recorded In [...] AM EDT Hospital Encounter [place] [address] Mary Reyes DIRECTOR OF SURGERY [facility] [place] [address] 10/21/2023 11:30 AM EDT Appointment [place] [address] Mary Reyes DIRECTOR OF SURGERY [facility] [place] [address] 10/21/2023 12:30 PM EDT Appointment [place] [address] Mary Reyes DIRECTOR OF SURGERY [facility] [place] [address] 10/21/2023 1:30 PM EDT Appointment [place] [phone] Mary Reyes DIRECTOR OF SURGERY [facility] [place] [address] 10/21/2023 2:30 PM EDT Appointment [place] [phone] Mary Reyes DIRECTOR OF SURGERY [facility] [place] [address] 10/26/2023 4:00 PM EDT Office Visit Cardiology at [address] [phone] Jaspreet Kinsey MD [facility] [place] [address] 10/28/2023 9:00 AM EDT Office [place] [address] 10/29/2023 10:00 AM EDT Clinical [place] [address] 10/29/2023 10:15 AM EDT Procedure [place] [address] 11/01/2023 5:00 PM EDT Office Visit [place] [phone] Selene Browning, PhD [facility] [place] [address] 11/22/2023 4:40 PM EDT Office Visit Cardiology at [address] [phone] Porsha Mcdaniels MD [facility] [place] [address] 12/13/2023 10:00 AM EDT Clinical Support [place] [address] Lucero Romero, ALVA [facility] [place] [address] documented as of this encounter Visit Diagnoses Not on filedocumented in this encounter Care Teams Tangled Yarn Worker Relationship Specialty Start Date End Date Polo Pearce PA [facility] [address] [place] [address] PCP - General Internal Medicine 06/09/21 documented as of this encounter
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
--- OUTSIDE RECORDS SUMMARY | 2023-10-20 19:51 | XMS_ITS | Encounter Summary ---
[place] [address] Care Team Providers Care Dynamite Reclaimer Name Role Phone Polo Pearce Primary Care Provider [phone] Reason for Visit * Auth/Cert (Routine) Specialty Diagnoses / Procedures Referred By Jayant harris Referred To Contact Diagnoses NSTEMI (non-ST elevated myocardial infarction) NSTEMI Procedures EMERGENCY [place] [address] [facility] Referral ID Status Reason Start Date Expiration Date Visits Re quested Visits Authorized [id number] 1 1 Encounter Details Date Type Department Care Team (Late st Contact Info) Description 08/25/2023 12:55 PM EDT Laboratory Appointment Lab [address] [place] [address] Social History Tobacco Use Types Packs/Day Years [...] AM EDT Hospital Encounter [place] [address] Mary Reyes APRN [facility] [place] [address] 10/21/2023 11:30 AM EDT Appointment [place] [address] aMry Reyes APRN [facility] [place] [address] 10/21/2023 12:30 PM EDT Appointment [place] [address] Mary Reyes [facility] [place] [address] 10/21/2023 1:30 PM EDT Appointment [place] [address] [place] [address] 10/21/2023 2:30 PM EDT Appointment [place] [address] [place] [address] 10/26/2023 4:00 PM EDT Office Visit Cardiology at [address] [phone] Jaspreet Kinsey MD [facility] [place] [address] 10/28/2023 9:00 AM EDT Office Visit [place] [address] 10/29/2023 10:00 AM EDT Clinical Support [place] [address] 10/29/2023 10:15 AM EDT Procedure visit [place] [address] 11/01/2023 5:00 PM EDT Office [place] [address] Selene Browning, PhD [facility] [place] [address] 11/22/2023 4:40 PM EDT Office Visit Cardiology at [address] [phone] Porsha Mcdaniels MD [facility] [place] [address] 12/13/2023 10:00 AM EDT Clinical Support [place] [address] Lucero Romero, [place] [facility] [place] [address] documented as of this encounter Visit Diagnoses Not on filedocumented in this encounter Care Teams Dynamite Reclaimer Relationship Specialty Start Date End Date Polo Pearce PA [address] [place] [address] PCP - General Internal Medicine 06/09/21 documented as of this encounter
--- OUTSIDE RECORDS SUMMARY | 2023-10-20 19:51 | XMS_ITS | Encounter Summary ---
[place] [address] Care Team Providers Care Tutoring Manager Name Role Phone Polo Pearce Primary Care Provider [phone] Encounter Details Date Type Department Care Team (Late st Contact Info) Description 08/03/2023 8:30 AM EDT Tech Visit [place] [address] Eladio Boyer Mesenteric ischemia Social History Tobacco Use Types Packs/Day Years Used Date Smoking Tobacco: Never Smokeless Tobacco: Never Alcohol Use Standard Drinks/Week Comments Never 0 (1 standard drink = 0.6 oz pur e alcohol) [facility] Utilities Answer Date Recorded In the past 12 months has e [employer], gas, oil, or water [employer] threatened to shut off services in your [...] AM EDT Hospital Encounter [place] [address] Mary Reyes [place] [address] 10/21/2023 11:30 AM EDT Appointment [place] [address] Mary Reyes AIRBRUSH ARTIST [facility] [place] [address] 10/21/2023 12:30 PM EDT Appointment [place] [address] Mary Re[place] [address] 10/21/2023 1:30 PM EDT Appointment [place] [address] Mary Reyes AIRBRUSH ARTIST [facility] [place] [address] 10/21/2023 2:30 PM EDT Appointment [place] [address] Mary Reyes AIRBRUSH ARTIST [facility] [place] [address] 10/26/2023 4:00 PM EDT Office Visit Cardiology at [address] [phone] Jaspreet Kinsey MD [facility] [place] [address] 10/28/2023 9:00 AM EDT Office [place] [address] 10/29/2023 10:00 AM EDT Clinical [place] [address] 10/29/2023 10:15 AM EDT Procedure [place] [address] 11/01/2023 5:00 PM EDT Office Visit [place] [address] Selene Browning, PhD [facility] [place] [address] 11/22/2023 4:40 PM EDT Office Visit Cardiology at [address] [address] Porsha Mcdaniels MD [facility] [place] [address] 12/13/2023 10:00 AM EDT Clinical Support [place] [phone] [address]ero [address] [facility] [place] [address] documented as of this encounter Procedures Procedure Name Priority Date/Time Associated Diagnosis Comments MESENTERIC COMPLETE Routine 08/03/2023 8 :36 AM EDT Mesenteric ischemia documented in this encounter Results * Duplex Study Visceral Arteries, Comp (08/03/2023 8:36 AM EDT) VB Text Report Department: Vascular Surgery Lab Patient: [id number] (LOIDA ROQUE) CPT: 81545 Referring Physician: MAMIE MARX ?? Phone: Indications: S/p SMA stenting (07/01) one month f/u, ? patency Findings: Unilateral ? Waveform ? PSV cm/s ??EDV cm/s ??Patent ?? Dary Visceral Aorta ? 71 ?14 ? Celiac Artery, Proximal ??[place]-Biphasic ? 100 ?22 ? Celiac Artery, Mid ? [place]-Biphasic ?99 ?19 ? Celiac Artery, Distal ?[place]-Biphasic ?94 ?18 ? Sup Mes Artery Proximal [...] mesenteric artery stents may differ from [place] arteries, with thresholds for diagnosis of significant stenosis likely being somewhat higher in stented arteries than [place].% To date, there is no evidence based consensus of stent velocity criteria. Therefore, the current interpretation is based on [place] artery thresholds. Previous Celiac/Mesenteric Studies: Date ? [...] Marx APRN VASCULAR ORDERABLES Performing Organization Address City/State/[facility] Co de Phone Number [employer] documented in this encounter Visit Diagnoses Diagnosis Mesenteric ischemia Unspecified vascular insufficiency of intestine documented in this encounter Care Teams Tutoring Manager Relationship Specialty Start Date End Date Polo Pearce PA [address] [place] [address] PCP - General Internal Medicine 06/09/21 documented as of this encounter
--- OUTSIDE RECORDS SUMMARY | 2023-10-20 19:51 | XMS_ITS | Encounter Summary ---
Author Organization [facility] Address [facility] [place] [address] Care Team Providers Care Wire Tester Name Role Phone Polo Pearce Primary Care Provider [phone] Encounter Details Date Type Department Care Team [...] AM EDT Hospital En[place] [address] Mary Reyes JOINT CREASER [facility] [place] [address] 10/21/2023 11:30 AM EDT Appointment [place] [address] Mary Reyes JOINT CREASER [facility] [place] [address] 10/21/2023 12:30 PM EDT Appointment [place] [address] Mary Reyes JOINT CREASER [facility] [place] [address] 10/21/2023 1:30 PM EDT Appointment [place] [address] Mary Reyes JOINT CREASER [facility] [place] [address] 10/21/2023 2:30 PM EDT Appointment [place] [address] Mary Reyes JOINT CREASER [facility] [place] [address] 10/26/2023 4:00 PM EDT Office Visit Cardiology at [address] [phone] Jaspreet Kinsey MD [facility] [place] [address] 10/28/2023 9:00 AM EDT Office [place] [address] 10/29/2023 10:00 AM EDT Clinical [place] [address] 10/29/2023 10:15 AM EDT Procedure [place] [address] 11/01/2023 5:00 PM EDT Office [place] [phone] Selene Browning, PhD [facility] [place] [address] 11/22/2023 4:40 PM EDT Office Visit Cardiology at [address] [phone] Porsha Mcdaniels MD [facility] [place] [address] 12/13/2023 10:00 AM EDT Clinical Support [place] [address] Lucero Romero, [place] [facility] [place] [address] documented as of this encounter Visit Diagnoses Not on filedocumented in this encounter Care Teams Wire Tester Relationship Specialty Start Date End Date Polo Pearce PA [facility] [address] [place] [address] PCP - General Internal Medicine 06/09/21 documented as of this encounter
--- OUTSIDE RECORDS SUMMARY | 2023-10-20 19:51 | XMS_ITS | Encounter Summary ---
Author Organization [facility] Address [facility] [place] [address] Care Team Providers Care Fish Butcher Name Role Phone Polo Pearce Primary Care Provider [phone] Encounter Details Date Type Department Care Team (Late st Contact Info) Description 07/12/2023 Refill Cardiology at [address] [place] [address] Jaspreet Kinsey MD [facility] [place] [address] Social History Tobacco Use Types Packs/Day Years Used Date Smoking Tobacco: Never Smokeless Tobacco: Never Alcohol Use Standard Drinks/Week Comments Never 0 (1 standard drink = 0.6 oz pur e alcohol) [facility] Utilities Answer Date Recorded In the past 12 months has [employer], gas, oil, or water [employer] threatened to shut off services in your [...] mg., 2-2x daily, none left. Patient uses [facility] in [place], [place]. She can be reached @ [phone]. documented in this encounter Plan of Treatment Upcoming Encounters Date Type Department Care Team (Late st Contact Info) Description 10/21/2023 10:30 AM EDT Hospital Encounter [place] [phone] [place] [address] 10/21/2023 11:30 AM EDT Appointment [place] [address] Mary Reyes [facility] [place] [address] 10/21/2023 12:30 PM EDT Appointment [place] [address] Mary Reyes [facility] [place] [address] 10/21/2023 1:30 PM EDT Appointment [place] [address] [place] [address] 10/21/2023 2:30 PM EDT Appointment [place] [address] [place] [address] 10/26/2023 4:00 PM EDT Office Visit Cardiology at [address] [phone] [facility] [address] 10/28/2023 9:00 AM EDT Office [place] [address] 10/29/2023 10:00 AM EDT Clinical [place] [address] 10/29/2023 10:15 AM EDT Procedure [place] [address] 11/01/2023 5:00 PM EDT Office Visit Gastroenterology at [place] [phone] Selene Browning, PhD [facility] [place] [address] 11/22/2023 4:40 PM EDT Office [place] [address] [facility] [place] [address] 12/13/2023 10:00 AM EDT Clinical [place] [address] Lucero Romero, [place] [facility] [place] [address] documented as of this encounter Visit Diagnoses Diagnosis Heart failure with preserved ejection fraction, unspecified HF chronicity documented in this encounter Care Teams Fish Butcher Relationship Specialty Start Date End Date Polo Pearce PA [address] [place] [address] PCP - General Internal Medicine 06/09/21 documented as of this encounter
--- OUTSIDE RECORDS SUMMARY | 2023-10-20 19:53 | XMS_ITS | Encounter Summary ---
[place] [address] Care Team Providers Care Mounting Machine Operator Name Role Phone Polo Pearce Primary Care Provider [phone] Reason for Visit * Auth/Cert (Routine) Specialty Diagnoses / Procedures Referred By Jayant t Referred To Contact Diagnoses NSTEMI (non-ST elevated myocardial infarction) NSTEMI Procedures ER Lloyd Pantoja MD [facility] [place] [address] [facility] Referral ID Status Reason Start Date Expiration Date Visits Re quested Visits Authorized [id number] 1 1 Encounter Details Date Type Department Care Team (Late st Contact Info) Description 07/07/2023 2:05 PM EDT Anesthesia [place] [address] Constantine Velez MD [facility] [place] [address] Anesthesia Record Procedure Summary Procedure Name Responsible [...] Recorded In the past 12 months has Underground Cellar, gas, oil, or water [employer] threatened to shut off services in your [...] Procedure Summary Date: 07/07/23 Room / Location: [facility] ENDO 5 / [facility] ENDOSCOPY Anesthesia Start: 1405 Anesthesia Stop: 1511 Procedures: EGD WITH BIOPSY (WRVU 2.39) (Trunk) COLONOSCOPY FLEXIBLE, WITH BX (WRVU 3.56) (Trunk) Diagnosis: (post prandial pain) Surgeons: Lashonda Villa MD Responsible Provider: Constantine Velez MD Anesthesia Type: general ASA Status: 4 All Anesthesia Providers: Anesthesiologist: Constantine Velez MD RAILROAD TRACK INSPECTOR: Darío Barlow CRNA Theoretical Physicist: Lawrence Lopez MD Vitals Value Taken Time BP 96/51 07/07/23 1530 Temp Pulse Resp SpO2 100 % 07/07/23 1537 Pain Level 1 07/07/23 1510 Vitals shown include unfiled device data. Patient Location: PACU/NEP Level of Consciousness: Awake and Alert Pain [...] AM EDT Hospital Encounter [place] [address] Mary Reyes [place] [address] 10/21/2023 11:30 AM EDT Appointment [place] [address] [place] [address] 10/21/2023 12:30 PM EDT Appointment [place] [address] Mary Reyes [place] [address] 10/21/2023 1:30 PM EDT Appointment [place] [address] Mary Reyes [place] [address] 10/21/2023 2:30 PM EDT Appointment Nuclear Medicine at [place] [phone] Mary Reyes APRN [facility] [place] [address] 10/26/2023 4:00 PM EDT Office Visit Cardiology at [address] [phone] Jaspreet Kinsey MD [facility] [place] [address] 10/28/2023 9:00 AM EDT Office Visit [place] [address] 10/29/2023 10:00 AM EDT Clinical [place] [address] 10/29/2023 10:15 AM EDT Procedure [place] [address] 11/01/2023 5:00 PM EDT Office Visit Gastroenterology at [place] [phone] Selene Browning, PhD [facility] [place] [address] 11/22/2023 4:40 PM EDT Office Visit Cardiology at [address] [phone] Porsha Mcdaniels MD [facility] [place] [address] 12/13/2023 10:00 AM EDT Clinical [place] [address] Lucero Romero, ALVA [facility] [place] [place] [address] documented as of this encounter Visit Diagnoses [...] mg documented in this encounter Care Teams Mounting Machine Operator Relationship Specialty Start Date End Date Polo Pearce PA [address] [place] [address] PCP - General Internal Medicine 06/09/21 documented as of this encounter
--- OUTSIDE RECORDS SUMMARY | 2023-10-20 19:53 | XMS_ITS | Encounter Summary ---
Author Organization [facility] [place] [address] Care Team Providers Care Durable Medical Equipment Repairer Name Role Phone Polo Pearce Primary Care Provider [phone] Reason for Referral * Consultation (Routine) - Duplicate Referral Specialty Diagnoses / Procedures Referred By Jayant harris Referred To Contact Gastroenterology Diagnoses Mesenteric artery stenosis Terrence Keating MD [facility] [place] [place] [address] [facility] [address] [place] [address] Referral ID Status Reason Start Date Expiration Date Visits Requested Visits Authorized [id number] Duplicate Referral Consult, Test & Treat 07/09/2023 07/08/2024 1 1 * Home Health Care (Routine) - Authorized Specialty Diagnoses / Procedures Referred By Contjulita t Referred To Contact Diagnoses Paroxysmal atrial fibrillation Chest pain, unspecified type Heart failure with preserved ejection fraction, unspecified HF chronicity Terrence Keating MD [facility] [place] [address] Home Health & [address] [place] [address] Referral ID Status Reason Start Date Expiration Date Visits Requested Visits Authorized [id number] Authorized Consult, Test & Treat 07/09/2023 01/05/2024 999 999 Reason for Visit * Auth/Cert (Routine) Specialty Diagnoses / Procedures Referred By Contac t Referred To Contact Diagnoses NSTEMI (non-ST elevated myocardial infarction) NSTEMI Procedures ER IPI Terrence Keating MD [facility] [place] [address] [facility] Referral ID Status Reason Start Date Expiration Date Visits Re quested Visits Authorized [id number] 1 1 Encounter Details Date Type Department Care Team (Latest Contact Info) Description 06/14/2023 11:01 PM EDT - 07/09/2023 4:44 PM EDT Hospital Encounter Heart and Vascular Unit Level 4 [place] [address] Jaspreet Kinsey MD [facility] [place] [address] Lino Calles MD [facility] [place] [address] Eufemia Copeland MD [facility] [place] [address] Ailyn Irvin MD [facility] [place] [address] Terrence Keating MD [facility] [place] [address] Paroxysmal atrial fibrillation; Chest pain, unspecified type; [...] Loida Roque Patient Age: 53 y.o. Language: Swedish Race: White Ethnicity: Not nor Admit date: 06/14/2023 Discharge date and time: 07/09/2023 3:31 PM Attending Physician: Terrence Keating MD Discharge Physician: Terrence Keating MD Follow-up Recommendations for Providers: Inpatient Provider Contact Information: For questions regarding this document or issues relating to this hospitalization on the Medical Service, please contact your inpatient physician through the [facility] Road Design Engineer . Issues afterhours and on weekends will [...] first. Electronically signed by: Wilton Cabrera MD, [facility] ([phone]), at 06/17/2023 5:[address] Abdomen & [...] first. Electronically signed by: RONDA DUFFY MD, [facility] ([phone]), at 06/22/2023 7:59 AM XR Chest One [...] first. Electronically signed by: Itz Hayward MD, [facility] ([phone]), at 06/22/2023 11:47 AM US Abdomen Limited (Exam End: 06/28/2023 12:22 PM) Result Value WORKSTATION ID [id number] Narrative Abdominal (Signed Final 06/28/2023 02:08 pm) PATIENT INFO: ID #: [id number] : [birth year] (53 yrs)(F) Name: LOIDA Visit Date: 06/28/2023 12:20 pm ROHAN PERFORMED BY: Attending: Sigrid Owens MD Resident: Rafaela Huddleston MD Performed By: Deena Cabrera RDMS Referred By: AILYN IRVIN Location: [place] SERVICE(S) PROVIDED: UABDLIM - Abdominal Limited Survey Single [id number] Organ or Quadrant - [id number] INDICATIONS: RUQ pain, R/o Gall bladder colic, [...] PM Electronically signed by: Sigrid Owens MD, [facility] ([phone]), at 06/28/2023 2:02 PM Thank you for letting us participate in the care of this patient. If you are a health care provider and have any questions regarding this report, please contact the number above. For patients who have questions, please contact the health rn patient care that requested your imaging first. Sigrid Owens, [facility] Care Navigator Electronically Signed Final Report 06/28/2023 02:08 pm [...] the superior mesenteric artery Surgeon(s): MD Henrietta lGover MD Intra-procedural Medications: Versed dose: 1.5 mg Fentanyl dose: 75 mcg Local anesthetic: 10 cc 1% lidocaine Heparin: Yes 08968 Units Protamine: No mg Antibiotics: Ancef Fluoro [...] We exchanged the sheath for a 7 Citizen [place] tourist camp attendant steerable sheath over a stiff wire. A Glidewire and Kumpe catheter were used to selectively cannulate the superior mesenteric artery. Direct angiography of the superior mesenteric artery was performed, confirming the results of the nonselective aortography performed. The lesion was predilated with a 4 mm x 40 mm [place] balloon, and then a 6 mm X [...] 07/03/2023 3:18 PM) Result Value WORKSTATION ID [id number] Narrative EXAMINATION: XR CHEST ONE VIEW CLINICAL [...] first. Electronically signed by: Itz Hayward MD, [facility] ([phone]), at 07/03/2023 3:27 PM Echocardiogram from 06/22/2023 [...] pain. The patient was recently admitted at [facility] from 04/16/23 to 04/19/2023 as a transfer from [facility] due to exertional chest pressure and [...] etiology, patient was accepted for transfer to [facility]. Brief Summary: Loida Roque [...] with positive cardiac markers. Patient transferred to [facility] for further work-up and [...] Administered Date(s) Administered Moderna Covid-19 Monovalent 12Yr+ (Supervisor [employer] 100mcg) 03/06/2020, 04/03/2020 Discharge Medications: Your Medications [...] weight gain + increasing shortness of breath. [id number] minutes prior to a dose of torsemide). [...] appointments: During 8am-5pm Wednesday through Wednesday call [phone] to speak with a nurse in the cardiology clinic All other times call [phone] and ask to speak to the forestry patrolman component engineer. Return to work: One week Driving: No driving for 48 hours after catheterization. Follow up Appointments: PCP JOCY Franco [phone] 11:30am on July 19. Cardiology office will call you regarding your appointment with Dr. Kinsey. General Instructions None Future Appointments and Orders Future Appointments and Orders Future Appointments Provider Department Dept Phone 07/26/2023 3:20 PM Jaspreet Kinsey MD Cardiology at [place] Arrive at: [facility] [address] [phone] 07/29/2023 8:00 AM Porsha Mcdaniels MD Cardiology at [facility] Arrive at: [employer] Area 4A [phone] 08/03/2023 8:30 AM Eladio Boyer Vascular Lab at [facility] Arrive at: [employer] Area 3V [phone] 08/03/2023 9:30 AM Judith Butler APRN Vascular Surgery at [facility] Arrive at: [employer] Area 3V [phone] 09/02/2023 2:40 PM Jaspreet Kinsey MD Cardiology at [place] Arrive at: [facility] [address] [phone] Discharge References/Attachments None Greater than 30 minutes was spent on this discharge including documentation, rjre-th-alvy time withthe patient, patient education, food order delivery runner, coordination with pharmacy and other patient care. [...] appointments: During 8am-5pm Wednesday through Wednesday call [phone] to speak with a nurse in the cardiology clinic All other times call [phone] and ask to speak to the forestry patrolman component engineer. Return to work: One week Driving: No driving for 48 hours after catheterization. Follow up Appointments: PCP JOCY Franco [phone] 11:30am on July 19. Cardiology office will [...] as needed. fluticasone propionate (FLONASE) 50 mcg/actuation [place], Suspension 1 spray by Each Nare route [...] 4pm, per the team. Please refer to: [facility] [address] [place] [address] PHONE: [phone] FAX: [phone] *For RN RICARDO: 07/09/23 Nani Mendoza MSN-Ed, RN ACM Cardiac Research Nurse and Neuro/Neurocrit/ENT Senior Sales Operations Analyst. * Mary Castaneda RCP - 07/09/2023 4:37 [...] 1:00 PM EDT CV HOSPITALIST 2 - [facility] DAILY PROGRESS NOTE Page [phone] to reach a provider 28/09 Admit Date: [...] with positive cardiac markers. Patient transferred to [facility] for further work-up and [...] prn. Diet: Daily Healthy Menu Choices/Cardiac diet ([facility]-Diet) DVT Prophylaxis: DOAC heparin gtt. 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 Patient transferred to [facility] for further work-up and [...] Score: 24 PT: OT: PCP JOCY Franco [phone] Terrence Keating MD 07/07/2023 * Terrence Keating MD - 07/06/2023 11:00 AM EDT CV HOSPITALIST 2 - [facility] DAILY PROGRESS NOTE Page [phone] to reach a provider 28/09 Admit Date: [...] with positive cardiac markers. Patient transferred to [facility] for further work-up and [...] hospital Diet: Daily Healthy Menu Choices/Cardiac diet ([facility]-Diet) NPO diet (Give Meds) DVT Prophylaxis: DOAC Code status: Attempt Cardiopulmonary Resuscitation - Inpatient Disposition: Discharge Location: AM-PAC Basic Mobility Raw Score: 24 PT: OT: PCP JOCY Franco [phone] Terrence Keating MD 07/06/2023 * Ana Paula [...] 11:00 AM EDT CV HOSPITALIST 2 - [facility] DA[facility] PROGRESS NOTE Page [phone] to reach a provider 28/09 Admit Date: [...] with positive cardiac markers. Patient transferred to [facility] for further work-up and [...] hospital Diet: Daily Healthy Menu Choices/Cardiac diet ([facility]-Diet) DVT Prophylaxis: DOAC Code status: Attempt Cardiopulmonary Resuscitation - Inpatient Disposition: Discharge Location: AM-[facility] Basic Mobility Raw Score: 24 PT: OT: PCP JOCY Franco [phone] Terrence Keating MD 07/05/2023 * Lino Calles MD - 07/04/2023 9:09 AM EDT CV HOSPITALIST 2 - [facility] DA[facility] PROGRESS NOTE Page [phone] to reach a provider 28/09 Admit Date: [...] with positive cardiac markers. Patient transferred to [facility] for further work-up and [...] migraine Diet: Daily Healthy Menu Choices/Cardiac diet ([facility]-Diet) DVT Prophylaxis: DOAC Code status: Attempt Cardiopulmonary Resuscitation - Inpatient Disposition: Discharge Location: AM-PAC Basic Mobility Raw Score: 24 PT: OT: PCP JOCY Franco [phone] Lino Calles MD 07/04/2023 * Ana Paula [...] 8:59 AM EDT CV HOSPITALIST 2 - [facility] PROGRESS NOTE Page [phone] to reach a provider 28/09 Admit Date: [...] with positive cardiac markers. Patient transferred to [facility] for further work-up and [...] PRN Diet: Daily Healthy Menu Choices/Cardiac diet ([facility]-Diet) DVT Prophylaxis: DOAC Code status: Attempt Cardiopulmonary Resuscitation - Inpatient Disposition: Discharge Location: AM-PAC Basic Mobility Raw Score: 24 PT: OT: PCP JOCY Franco [phone] Lino Calles MD 07/03/2023 * Van Muse [...] 9:55 AM EDT CV HOSPITALIST 2 - [facility] PROGRESS NOTE Page [phone] to reach a provider 28/09 Admit Date: [...] with positive cardiac markers. Patient transferred to [facility] for further work-up and [...] PRN Diet: Daily Healthy Menu Choices/Cardiac diet ([facility]-Diet) DVT Prophylaxis: DOAC Code status: Attempt Cardiopulmonary Resuscitation - Inpatient Disposition: Discharge Location: AM-PAC Basic Mobility Raw Score: 24 PT: OT: PCP JOCY Franco [phone] Lino Calles MD 07/02/2023 * Jaspreet Griffith [facility] - 07/02/2023 6:35 AM EDT [...] 7:39 AM EDT CV HOSPITALIST 2 - [facility] PROGRESS NOTE Page [phone] to [...] with positive cardiac markers. Patient transferred to [facility] for further work-up and [...] PRN Diet: Daily Healthy Menu Choices/Cardiac diet ([facility]-Diet) NPO diet (Give Meds) DVT Prophylaxis: DOAC Code status: Attempt Cardiopulmonary Resuscitation - Inpatient Disposition: Discharge Location: AM-PAC Basic Mobility Raw Score: 24 PT: OT: PCP JOCY Franco [phone] Terrence Keating MD 07/01/2023 * Terrence Keating MD - 06/30/2023 8:00 AM EDT CV HOSPITALIST 2 - [facility] DA[facility] PROGRESS NOTE Page [phone] to reach a provider 28/09 Admit Date: [...] with positive cardiac markers. Patient transferred to [facility] for further work-up and [...] Score: 24 PT: OT: PCP JOCY Franco [phone] Terrence Keating MD 06/30/2023 * Terrence Keating MD - 06/29/2023 4:29 PM EDT CV HOSPITALIST 2 - [facility] PROGRESS NOTE Page [phone] to reach a provider 28/09 Admit Date: [...] with positive cardiac markers. Patient transferred to [facility] for further work-up and [...] Score: 24 PT: OT: PCP JOCY Franco [phone] Terrence Keating MD 06/29/2023 * Jo Ann Sharpe - 06/29/2023 2:54 PM EDT Nutrition Services Note - Low Nutrition Acuity Loida Roque is a 53 y.o. female Reason for intervention: follow up Nutrition Plan: Continue current diet. Encourage good PO intake. Spironolactone noted. Abdominal pain after eating noted. Encouragement and support provided. Pt screened for follow-up visit and play writer met with Pt at bedside. Pt [...] consulted in the interim. Jo Ann Sharpe Nutrient Management Specialist * Mary Castaneda RCP - 06/29/2023 3:55 [...] 1:53 PM EDT [facility] H[facility]PITALIST 2 - [facility] PROGRESS NOTE Page [phone] to reach a provider 28/09 Admit Date: [...] with positive cardiac markers. Patient transferred to [facility] for further work-up and [...] Score: 24 PT: OT: PCP JOCY Franco [phone] * Ailyn Irvin MD - 06/27/2023 9:40 AM EDT CV HOSPITALIST 2 - [facility] DAILY PROGRESS NOTE Page [phone] to reach a provider 28/09 Admit Date: [...] with positive cardiac markers. Patient transferred to [facility] for further work-up and [...] Score: 24 PT: OT: PCP JOCY Franco [phone] * Ailyn Irvin MD - 06/26/2023 12:42 PM EDT CV HOSPITALIST 2 - [facility] DA[facility] PROGRESS NOTE Page [phone] to reach a provider 28/09 Admit Date: [...] with positive cardiac markers. Patient transferred to [facility] for further work-up and [...] Score: 24 PT: OT: PCP JOCY Franco [phone] * Mitali Manuel [facility] - 06/26/2023 5:43 AM EDT Respiratory [...] 1:39 PM EDT CV HOSPITALIST 2 - [facility] PROGRESS NOTE Page [phone] to reach a provider 28/09 Admit Date: [...] with positive cardiac markers. Patient transferred to [facility] for further work-up and [...] Score: 24 PT: OT: PCP JOCY Franco [phone] * Edith Chandler RCP - 06/24/2023 10:40 [...] 4:38 PM EDT CV HOSPITALIST 2 - [facility] DA[facility] PROGRESS NOTE Page [phone] to reach a provider 28/09 Admit Date: [...] and SVT ablation on 04/01/[address] [place], paroxysmal A-fib (diagnosed on 10/20/2022), HFpEF, pulmonary emboli on Eliquis, and restrictive lung disease secondary to obesity who presented to OSH with chest pain. Patient has recently undergone extensive workup for ACS that has been unrevealing. 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 The patient current presentation is different with positive cardiac markers. Patient transferred to [facility] for further work-up and [...] Score: 24 PT: OT: PCP JOCY Franco [phone] * Aaron Rosado RCP - 06/24/2023 1:55 [...] 1:03 PM EDT CV HOSPITALIST 2 - [facility] DA[facility] PROGRESS NOTE Page [phone] to reach a provider 28/09 Admit Date: [...] with positive cardiac markers. Patient transferred to [facility] for further work-up and [...] Score: 24 PT: OT: PCP JOCY Franco [phone] * Ciera Valdovinos, ALVA - 06/22/2023 2:38 PM EDT Nutrition Services Note - Low Nutrition Acuity Loida Roque is a 53 y.o. female Reason for intervention: hospital day 9 Nutrition Plan: Cardiac Diet Record % PO intake Monitor weight - diuresis noted Patient screened for hospital length of stay nutrition visit, play writer met with Loida at bedside. Loida reports excellent appetite, eating 100% of meals. She notes that she has not skipped any meals inpatient and has no current nutrition related questions. She notes UBW 217-218 lbs and says that current weight is higher than normal for her. Diuresis noted. Active Orders Diet Daily Healthy Menu Choices/Cardiac diet ([facility]-Diet) Frequency: Effective Now Number [...] 1:35 PM EDT CV HOSPITALIST 2 - [facility] PROGRESS NOTE Page [phone] to reach a provider 28/09 Admit Date: [...] first. Electronically signed by: RONDA DUFFY MD, [facility] ([phone]), at 06/22/2023 7:59 AM XR Chest One [...] first. Electronically signed by: Itz Hayward MD, [facility] ([phone]), at 06/22/2023 11:47 AM Assessment: Loida Roque [...] with positive cardiac markers. Patient transferred to [facility] for further work-up and [...] above Diet: Daily Healthy Menu Choices/Cardiac diet ([facility]-Diet) DVT Prophlaxis: eliquis Code status: Attempt Cardiopulmonary Resuscitation - Inpatient Disposition: Discharge Planning: AM-PAC Basic Mobility Raw Score: 24 PT: OT: PCP JOCY Franco [phone] * Eufemia Copeland MD - 06/21/2023 11:02 AM EDT CV HOSPITALIST 2 - [facility] DAILY PROGRESS NOTE Page [phone] to reach a provider 28/09 Admit Date: [...] with positive cardiac markers. Patient transferred to [facility] for further work-up and [...] above Diet: Daily Healthy Menu Choices/Cardiac diet ([facility]-Diet) DVT Prophlaxis: eliquis Code status: Attempt Cardiopulmonary Resuscitation - Inpatient Disposition: Discharge Planning: AM-PAC Basic Mobility Raw Score: 24 PT: OT: PCP JOCY Franco [phone] * Eufemia Copeland MD - 06/20/2023 8:06 AM EDT CV HOSPITALIST 2 - [facility] DA[facility] PROGRESS NOTE Page [phone] to reach a provider 28/09 Admit Date: [...] with positive cardiac markers. Patient transferred to [facility] for further work-up and [...] above Diet: Daily Healthy Menu Choices/Cardiac diet ([facility]-Diet) DVT Prophlaxis: eliquis Code status: Attempt Cardiopulmonary Resuscitation - Inpatient Disposition: Discharge Planning: AM-PAC Basic Mobility Raw Score: 24 PT: OT: PCP JOCY Franco [phone] * Eufemia Copeland MD - 06/19/2023 10:00 AM EDT CV HOSPITALIST 2 - [facility] DA[facility] PROGRESS NOTE Page [phone] to reach a provider 28/09 Admit Date: [...] with positive cardiac markers. Patient transferred to [facility] for further work-up and [...] above Diet: Daily Healthy Menu Choices/Cardiac diet ([facility]-Diet) DVT Prophlaxis: eliquis Code status: Attempt Cardiopulmonary Resuscitation - Inpatient Disposition: Discharge Planning: AM-PAC Basic Mobility Raw Score: 24 PT: OT: PCP JOCY Franco [phone] * Eufemia Copeland MD - 06/18/2023 9:02 AM EDT CV HOSPITALIST 2 - [facility] DA[facility] PROGRESS NOTE Page [phone] to reach a provider 28/09 Admit Date: [...] with positive cardiac markers. Patient transferred to [facility] for further work-up and [...] above Diet: Daily Healthy Menu Choices/Cardiac diet ([facility]-Diet) DVT Prophlaxis: eliquis Code status: Attempt Cardiopulmonary Resuscitation - Inpatient Disposition: Discharge Planning: AM-PAC Basic Mobility Raw Score: 24 PT: OT: PCP JOCY Franco [phone] * Eufemia Copeland MD - 06/17/2023 12:02 PM EDT CV HOSPITALIST 2 - [facility] DAILY PROGRESS NOTE Page [phone] to reach a provider 28/09 Admit Date: [...] with positive cardiac markers. Patient transferred to [facility] for further work-up and [...] above Diet: Daily Healthy Menu Choices/Cardiac diet ([facility]-Diet) DVT Prophlaxis: eliquis Code status: Attempt Cardiopulmonary Resuscitation - Inpatient Disposition: Discharge Planning: AM-PAC Basic Mobility Raw Score: 24 PT: OT: PCP JOCY Franco [phone] * Calista Hernandez RT - 06/17/2023 4:36 [...] 3:25 PM EDT CV HOSPITALIST 2 - [facility] DAILY PROGRESS NOTE Page [phone] to reach a provider 28/09 Admit Date: [...] with positive cardiac markers. Patient transferred to [facility] for further work-up and [...] above Diet: Daily Healthy Menu Choices/Cardiac diet ([facility]-Diet) DVT Prophlaxis: eliquis Code status: Attempt Cardiopulmonary Resuscitation - Inpatient Disposition: Discharge Planning: AM-PAC Basic Mobility Raw Score: 24 PT: OT: PCP JOCY Franco [phone] documented in this encounter H&P Notes * [...] pain. The patient was recently admitted at [facility] from 04/16/23 to 04/19/2023 as a transfer from [facility] due to exertional chest pressure and [...] etiology, patient was accepted for transfer to [facility]. 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 fluticasone propionate (FLONASE) 50 mcg/actuation [place], Suspension 1 spray by Each Nare route [...] if hypotensive / cardiogenic shock / inferior [place] / sildenafil within past 24 hours) - [...] for discharge to home with family support, [place] [facility] for RN and OP Cardi clinic for f/u. Needs for Transition of Care: Plan for discharge is: Home w/ Services Outpatient Agency/Support Group Needs: None Home Health Services: Registered Nurse Agency Referrals & Follow-up Care: Contact information for follow-up Home Health & Hospice, [place] [address] [place] [address] Transportation: taxi voucher -Ride confirmed entrance #2 [...] none Patient is insured through: Primary Insurance: [employer] [place] Payor: [employer] [place] / Plan: [place] EXCHANGE / Product Type: *No Product type* / Secondary Insurance: N/A Prescription Coverage: Yes This plan was formulated with input from patient, (please identify family/friend involved if applicable) and team. All are in agreement with plan. Nani Mendoza MSN-Ed, RN ACM Cardiac Research Nurse and Neuro/Neurocrit/ENT Senior Sales Operations Analyst. * Care Management - Dixie Patterson - 07/09/2023 1:38 PM EDT Transportation for discharge was scheduled and confirmed through [employer]. [employer] will have a tram driver here at entrance #2 @4pm to [...] Visceral Aorta 80 16 Celiac Artery, Proximal [place]-Biphasic 119 26 Celiac Artery, Mid [place]-Biphasic 115 21 Celiac Artery, Distal No Vis Sup Mes Artery Proximal Biphasic 427 91 Sup Mes Artery Middle [place]-Biphasic 100 17 Sup Mes Artery Distal [place]-Biphasic 64 15 Hepatic Artery No Vis Splenic [...] sign off at this time, please page [phone] with any questions or concerns. Discussed with [...] Visceral Aorta 80 16 Celiac Artery, Proximal [place]-Biphasic 119 26 Celiac Artery, Mid [place]-Biphasic 115 21 Celiac Artery, Distal No Vis Sup Mes Artery Proximal Biphasic 427 91 Sup Mes Artery Middle Rusk-Biphasic 100 17 Sup Mes Artery Distal Rusk-Biphasic 64 15 Hepatic Artery No Vis Splenic [...] duplex Discussed with Dr. Kamara. Please page [phone] with any questions or concerns. 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 At MD, patient should be strict NPO. The plan as outlined above was discussed with Dr. Villa. Recommendations were discussed with primary team. Sis Keenan M.D. Fellow in Gastroenterology and Hepatology Pager #[phone] 07/06/2023 Associated attestation - Lashonda Villa MD [...] Lashonda Villa MD Gastroenterology and hepatology Pager: [phone] * Plan of Care - Olive Hernandez [...] Visceral Aorta 80 16 Celiac Artery, Proximal Rusk-Biphasic 119 26 Celiac Artery, Mid Rusk-B[place]hasic 115 21 Celiac Artery, Distal No Vis Sup Mes Artery Proximal Biphasic 427 91 Sup Mes Artery Middle Rusk-Biphasic 100 17 Sup Mes Artery Distal Rusk-Biphasic 64 15 Hepatic Artery No Vis Splenic [...] duplex Discussed with Dr. Kamara. Please page [phone] with any questions or concerns. Gauri Vega [...] Visceral Aorta 80 16 Celiac Artery, Proximal Rusk-B[place]hasic 119 26 Celiac Artery, Mid Rusk-Biphasic 115 21 Celiac Artery, Distal No Vis Sup Mes Artery Proximal Biphasic 427 91 Sup Mes Artery Middle Rusk-Biphasic 100 17 Sup Mes Artery Distal Rusk-Biphasic 64 15 Hepatic Artery No Vis Splenic [...] ASA) Discussed with Dr. Kamara. Please page [phone] with any questions or concerns. Gauri Vega [...] Visceral Aorta 80 16 Celiac Artery, Proximal Rusk-B[place]hasic 119 26 Celiac Artery, Mid Rusk-B[place]hasic 115 21 Celiac Artery, Distal No Vis Sup Mes Artery Proximal Biphasic 427 91 Sup Mes Artery Middle Rusk-B[place]hasic 100 17 Sup Mes Artery Distal Rusk-Biphasic 64 15 Hepatic Artery No Vis Splenic [...] 07/02/[address] Kamara. Please page [phone] with any questions or concerns. Gauri Vega [...] Visceral Aorta 80 16 Celiac Artery, Proximal Rusk-B[place]hasic 119 26 Celiac Artery, Mid [place]ic 115 21 Celiac Artery, Distal No Vis Sup Mes Artery Proximal Biphasic 427 91 Sup Mes Artery Middle [place] 100 17 Sup Mes Artery Distal Rusk-B[place]hasic 64 15 Hepatic Artery No Vis Splenic [...] tonight Discussed with Dr. Kamara. Please page [phone] with any questions or concerns. Gauri Vega [...] Visceral Aorta 80 16 Celiac Artery, Proximal Rusk-B[place] 119 26 Celiac Artery, Mid R[place]-B[place]hasic 115 21 Celiac Artery, Distal No Vis Sup Mes Artery Proximal Biphasic 427 91 Sup Mes Artery Middle R[place]-B[place]ic 100 17 Sup Mes Artery Distal Rusk-B[place]hasic 64 15 Hepatic Artery No Vis Splenic [...] Visceral Aorta 80 16 Celiac Artery, Proximal R[place]-B[place] 119 26 Celiac Artery, Mid [place] 115 21 Celiac Artery, Distal No Vis Sup Mes Artery Proximal Biphasic 427 91 Sup Mes Artery Middle R[place]-B[place] 100 17 Sup Mes Artery Distal Rusk-Biphasic 64 15 Hepatic Artery No Vis Splenic [...] Dominguez PA - 06/28/2023 8:52 AM EDT [facility] Department of Cardiology Consult [...] consultation required. JOCY Langston-C Cardiovascular Medicine Pager [phone] 06/28/2023 Associated attestation - Klarissa Henderson MD [...] Consult Note - Gauri eVga MD - 06/28/2023 5:51 AM EDT Vascular [...] Tellez MD - 06/24/2023 2:14 PM EDT [facility] Department of Cardiology Consult [...] if further consultation required. 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 fluticasone propionate (FLONASE) 50 mcg/actuation [place], Suspension 1 spray by Each Nare route [...] No Patient is insured through: Primary Insurance: [employer] [place] Payor: [employer] [place] / Plan[place] / [...] other (see comments) (Has CPAP provided through [facility]) DME Needed at Discharge: No Patient is insured through: Primary Insurance: [employer] [place]or: [employer] [place] / Plan[place] / Product Type: *No Product type* / Secondary Insurance: N/A Plan for discharge is: Home w/o Services Outpatient Agency/Support Group Needs: None Agency Referrals: Not Applicable at this time. Transportation: taxi voucher Barriers to discharge: Discharge planning Plan going forward: Pt to pa home with family without services once medically ready. Care Management will continue to follow and assist with discharge planning and coordination of careas indicated. Anticipated Date of Discharge: 06/19/2023 BEA Killian, RN Inpatient Satellite Installation Technician- Cardiology Office of Care Management Pager #: [phone] * Plan of Care - Olive Hernandez [...] COVID test: Lab Results Component Value Date [id number] Not Detected 06/13/2021 Past medical History: Past [...] In the past 12 months has the [employer], gas, oil, or water [employer] threatened to shut off services in your [...] other (see comments) (Has CPAP provided through [facility]) [address] [address] Social & Family Supports: All names listed [...] Specific Information: Has a CPAP provided by [employer] [facility]/Prescription Coverage: Primary Insurance: [employer] [place] Payor: [employer] [place] / Plan: [employer] [place] / Product Type: *No Product type* / Secondary Insurance: N/A ; Prescription Coverage: Yes Preferred Pharmacy: [facility] [address] [address] [place] Status: Patient is a : No Primary Care Provider confirmed: JOCY Franco [phone] Patient/Caregiver Goals of Treatment: To figure out what is wrong Potential Needs for Transition of Care: other (see comments) ([place] angycal help) Agency Referrals: Not Applicable Transportation: no concerns Transportation Anticipated: agency ( can not drive , mother does not drive , Son does not have a car) Concerns to be Addressed: discharge planning Assessment: Patient is admitted to [facility] service for Chest pain Plan: [...] planning. Office of Care Management Float / time study observer honing machine operator semiautomatic [email or web address] Pager #[phone] * Consult Note - Jackie Batres MD - 06/15/2023 11:04 AM EDT [facility] Department of Cardiology Initial [...] her case. She has not had recent custodial monitoring for arrhythmia, though unlikely, is possible [...] AM EDT Hospital En[place] [phone] Mary Reyes APRN [facility] [place] [address] 10/21/2023 11:30 AM EDT Appointment [place] [address] Mary Reyes MARKING CLERK [facility] [place] [address] 10/21/2023 12:30 PM EDT Appointment [place] [address] Mary Reyes [facility] [address] 10/21/2023 1:30 PM EDT Appointment [place] [address] [place] [address] 10/21/2023 2:30 PM EDT Appointment [place] [address] [place] [address] 10/26/2023 4:00 PM EDT Office Visit Cardiology at [address] [phone] Jaspreet Kinsey MD [facility] [place] [address] 10/28/2023 9:00 AM EDT Office Visit [place] [address] 10/29/2023 10:00 AM EDT Clinical Support [place] [address] 10/29/2023 10:15 AM EDT Procedure visit [place] [address] 11/01/2023 5:00 PM EDT Office [place] [address] Selene Browning, PhD [facility] [place] [address] 11/22/2023 4:40 PM EDT Office Visit Cardiology at [address] [phone] Porsha Mcdaniels MD [facility] [place] [address] 12/13/2023 10:00 AM EDT Clinical [place] [address] [facility] [place] [address] Scheduled Orders Name Type Priority Associated Diagnoses [...] Procedure Name Priority Date/Time Associated Diagnosis Comments HEPARIN (UNFRACTIONATED) LEVEL Timed 07/09/2023 3:03 AM EDT HEMOGRAM Routine 07/09/2023 3:03 AM EDT DIFFERENTIAL, AUTOMATED Routine 07/09/2023 3:03 AM EDT CBC (WITH DIFF) Routine 07/09/2023 3:03 AM EDT PHOSPHORUS Routine 07/09/2023 3:03 AM EDT MAGNESIUM Routine 07/09/2023 3:03 AM EDT BASIC METABOLIC PANEL Routine 07/09/2023 3:03 AM EDT HEPARIN (UNFRACTIONATED) LEVEL Timed 07/08/2023 12:02 PM EDT EKG 12-LEAD STAT 07/08/2023 9:58 AM EDT Paroxysmal atrial fibrillation HEPARIN (UNFRACTIONATED) LEVEL Timed 07/08/2023 5:52 AM EDT HEMOGRAM Routine 07/08/2023 5:52 AM EDT DIFFERENTIAL, AUTOMATED Routine 07/08/2023 5:52 AM EDT CBC (WITH DIFF) Routine 07/08/2023 5:52 AM EDT PHOSPHORUS Routine 07/08/2023 5:52 AM EDT MAGNESIUM Routine 07/08/2023 5:52 AM EDT BASIC METABOLIC PANEL Routine 07/08/2023 5:52 AM EDT HEPARIN (UNFRACTIONATED) LEVEL Timed 07/08/2023 12:00 AM EDT SPECIMEN TO PATHOLOGY Routine 07/07/2023 2:55 PM EDT SPECIMEN TO PATHOLOGY Routine 07/07/2023 2:38 PM EDT SPECIMEN TO PATHOLOGY Routine 07/07/2023 2:38 PM EDT SURGICAL PATHOLOGY REPORT Routine 07/07/2023 2:25 PM EDT Colonoscopy, Biopsy ([id number]) 07/07/2023 2:10 PM EDT post prandial pain Upper Gi Endoscopy, Biopsy ([id number]) 07/07/2023 2:10 PM EDT post prandial pain COLONOSCOPY Routine 07/07/2023 1:39 PM EDT CAMPYLOBACTER ANTIGEN Routine 07/07/2023 12:10 PM EDT SHIGA TOXIN ASSAY Routine 07/07/2023 12: 10 PM EDT STOOL CULTURE Routine 07/07/2023 12:10 PM EDT HEPARIN (UNFRACTIONATED) LEVEL Timed 07/07/2023 3:51 AM EDT HEMOGRAM Routine 07/07/2023 3:51 AM EDT DIFFERENTIAL, AUTOMATED Routine 07/07/2023 3:51 AM EDT CBC (WITH DIFF) Routine 07/07/2023 3:51 AM EDT PHOSPHORUS Routine 07/07/2023 3:51 AM EDT MAGNESIUM Routine 07/07/2023 3:51 AM EDT HEPATIC FUNCTION PANEL Routine 07/07/2023 3:51 AM EDT BASIC METABOLIC PANEL Routine 07/07/2023 3:51 AM EDT GIARDIA/CRYPTOSPORIDI UM ANTIGENS (MC/CGP/APD/NLH) Routine 07/07/2023 12:38 AM EDT HEPATIC FUNCTION PANEL Routine 07/06/2023 3:41 PM EDT HEPARIN (UNFRACTIONATED) LEVEL Timed 07/06/2023 3:54 AM EDT HEMOGRAM Routine 07/06/2023 3:54 AM EDT DIFFERENTIAL, AUTOMATED Routine 07/06/2023 3:54 AM EDT CBC (WITH DIFF) Routine 07/06/2023 3:54 AM EDT PHOSPHORUS Routine 07/06/2023 3:54 AM EDT MAGNESIUM Routine 07/06/2023 3:54 AM EDT HEPATIC FUNCTION PANEL Routine 07/06/2023 3:54 AM EDT BASIC METABOLIC PANEL Routine 07/06/2023 3:54 AM EDT LIPASE Routine 07/05/2023 5:44 PM EDT AMYLASE Routine 07/05/2023 5:44 PM EDT BASIC METABOLIC PANEL Routine 07/05/2023 5:44 PM EDT MESENTERIC COMPLETE STAT 07/05/2023 9 :46 AM EDT Mesenteric artery stenosis HEPARIN (UNFRACTIONATED) LEVEL Timed 07/05/2023 5:05 AM EDT HEMOGRAM Routine 07/05/2023 5:05 AM EDT DIFFERENTIAL, AUTOMATED Routine 07/05/2023 5:05 AM EDT CBC (WITH DIFF) Routine 07/05/2023 5:05 AM EDT PHOSPHORUS Routine 07/05/2023 5:05 AM EDT MAGNESIUM Routine 07/05/2023 5:05 AM EDT BASIC METABOLIC PANEL Routine 07/05/2023 5:05 AM EDT EKG 12-LEAD STAT 07/04/2023 11:41 AM EDT Paroxysmal atrial fibrillation HEPARIN (UNFRACTIONATED) LEVEL Timed 07/04/2023 3:47 AM EDT HEMOGRAM Routine 07/04/2023 3:47 AM EDT DIFFERENTIAL, AUTOMATED Routine 07/04/2023 3:47 AM EDT CBC (WITH DIFF) Routine 07/04/2023 3:47 AM EDT PHOSPHORUS Routine 07/04/2023 3:47 AM EDT MAGNESIUM Routine 07/04/2023 3:47 AM EDT BASIC METABOLIC PANEL Routine 07/04/2023 3:47 AM EDT EKG 12-LEAD STAT 07/03/2023 9:36 PM EDT Paroxysmal atrial fibrillation MAGNESIUM Routine 07/03/2023 6:00 PM EDT BASIC METABOLIC PANEL Routine 07/03/2023 6:00 PM EDT XR CHEST ONE VIEW Routine 07/03/2023 3:1 8 PM EDT ARTERIAL DUPLEX LEG UNILA Routine 07/03/2023 9:34 AM EDT Mesenteric artery stenosis HEPARIN (UNFRACTIONATED) LEVEL Timed 07/03/2023 3:07 AM EDT HEMOGRAM Routine 07/03/2023 3:07 AM EDT DIFFERENTIAL, AUTOMATED Routine 07/03/2023 3:07 AM EDT CBC (WITH DIFF) Routine 07/03/2023 3:07 AM EDT PHOSPHORUS Routine 07/03/2023 3:07 AM EDT MAGNESIUM Routine 07/03/2023 3:07 AM EDT BASIC METABOLIC PANEL Routine 07/03/2023 3:07 AM EDT HEPARIN (UNFRACTIONATED) LEVEL Timed 07/02/2023 8:58 PM EDT VS ARTERIOGRAM MESENTERIC VASCULAR SURGERY Routine 07/02/2023 1:32 PM EDT HEPARIN (UNFRACTIONATED) LEVEL Timed 07/02/2023 3:58 AM EDT HEMOGRAM Routine 07/02/2023 3:58 AM EDT DIFFERENTIAL, AUTOMATED Routine 07/02/2023 3:58 AM EDT CBC (WITH DIFF) Routine 07/02/2023 3:58 AM EDT PHOSPHORUS Routine 07/02/2023 3:58 AM EDT MAGNESIUM Routine 07/02/2023 3:58 AM EDT BASIC METABOLIC PANEL Routine 07/02/2023 3:58 AM EDT EKG 12-LEAD Routine 07/01/2023 12:08 PM EDT Chest pain, unspecified type HEPARIN (UNFRACTIONATED) LEVEL Timed 07/01/2023 2:56 AM EDT HEMOGRAM Routine 07/01/2023 2:56 AM EDT DIFFERENTIAL, AUTOMATED Routine 07/01/2023 2:56 AM EDT CBC (WITH DIFF) Routine 07/01/2023 2:56 AM EDT PHOSPHORUS Routine 07/01/2023 2:56 AM EDT MAGNESIUM Routine 07/01/2023 2:56 AM EDT BASIC METABOLIC PANEL Routine 07/01/2023 2:56 AM EDT HEPARIN (UNFRACTIONATED) LEVEL Timed 06/30/2023 9:24 AM EDT HEPARIN (UNFRACTIONATED) LEVEL Timed 06/30/2023 3:14 AM EDT HEMOGRAM Routine 06/30/2023 3:14 AM EDT DIFFERENTIAL, AUTOMATED Routine 06/30/2023 3:14 AM EDT CBC (WITH DIFF) Routine 06/30/2023 3:14 AM EDT PHOSPHORUS Routine 06/30/2023 3:14 AM EDT MAGNESIUM Routine 06/30/2023 3:14 AM EDT BASIC METABOLIC PANEL Routine 06/30/2023 3:14 AM EDT HEPARIN (UNFRACTIONATED) LEVEL Timed 06/29/2023 8:47 PM EDT EKG 12-LEAD Routine 06/29/2023 12:55 PM EDT Paroxysmal atrial fibrillation HEPARIN (UNFRACTIONATED) LEVEL Timed 06/29/2023 11:34 AM EDT HEPARIN (UNFRACTIONATED) LEVEL Timed 06/29/2023 2:39 AM EDT HEMOGRAM Routine 06/29/2023 2:39 AM EDT DIFFERENTIAL, AUTOMATED Routine 06/29/2023 2:39 AM EDT CBC (WITH DIFF) Routine 06/29/2023 2:39 AM EDT PHOSPHORUS Routine 06/29/2023 2:39 AM EDT MAGNESIUM Routine 06/29/2023 2:39 AM EDT BASIC METABOLIC PANEL Routine 06/29/2023 2:39 AM EDT US ABDOMEN LIMITED Routine 06/28/2023 12 :22 PM EDT MESENTERIC COMPLETE Routine 06/28/2023 1 0:19 AM EDT Mesenteric artery stenosis HEMOGRAM Routine 06/28/2023 1:52 AM EDT DIFFERENTIAL, AUTOMATED Routine 06/28/2023 1:52 AM EDT CBC (WITH DIFF) Routine 06/28/2023 1:52 AM EDT PHOSPHORUS Routine 06/28/2023 1:52 AM EDT MAGNESIUM Routine 06/28/2023 1:52 AM EDT BASIC METABOLIC PANEL Routine 06/28/2023 1:52 AM EDT BASIC METABOLIC PANEL Routine 06/27/2023 8:06 PM EDT HEMOGRAM Routine 06/27/2023 4:34 AM EDT DIFFERENTIAL, AUTOMATED Routine 06/27/2023 4:34 AM EDT CBC (WITH DIFF) Routine 06/27/2023 4:34 AM EDT PHOSPHORUS Routine 06/27/2023 4:34 AM EDT MAGNESIUM Routine 06/27/2023 4:34 AM EDT HEPATIC FUNCTION PANEL Routine 06/27/2023 4:34 AM EDT BASIC METABOLIC PANEL Routine 06/27/2023 4:34 AM EDT BASIC METABOLIC PANEL Routine 06/26/2023 4:58 PM EDT URINALYSIS MICROSCOPIC EXAM Routine 06/26/2023 11:09 AM EDT URINALYSIS WITH REFLEX CULTURE Routine 06/26/2023 11:09 AM EDT EKG 12-LEAD Routine 06/26/2023 6:04 AM EDT Paroxysmal atrial fibrillation Chest pain, unspecified type HEMOGRAM Routine 06/26/2023 4:06 AM EDT DIFFERENTIAL, AUTOMATED Routine 06/26/2023 4:06 AM EDT CBC (WITH DIFF) Routine 06/26/2023 4:06 AM EDT PHOSPHORUS Routine 06/26/2023 4:06 AM EDT MAGNESIUM Routine 06/26/2023 4:06 AM EDT BASIC METABOLIC PANEL Routine 06/26/2023 4:06 AM EDT HEMOGRAM Routine 06/25/2023 1:50 AM EDT DIFFERENTIAL, AUTOMATED Routine 06/25/2023 1:50 AM EDT CBC (WITH DIFF) Routine 06/25/2023 1:50 AM EDT PHOSPHORUS Routine 06/25/2023 1:50 AM EDT MAGNESIUM Routine 06/25/2023 1:50 AM EDT BASIC METABOLIC PANEL Routine 06/25/2023 1:50 AM EDT HEPARIN (UNFRACTIONATED) LEVEL Timed 06/24/2023 3:38 AM EDT HEMOGRAM Routine 06/24/2023 3:38 AM EDT DIFFERENTIAL, AUTOMATED Routine 06/24/2023 3:38 AM EDT CBC (WITH DIFF) Routine 06/24/2023 3:38 AM EDT PHOSPHORUS Routine 06/24/2023 3:38 AM EDT PRO-BRAIN NATRIURETIC PEPTIDE Routine 06/24/2023 3:38 AM EDT MAGNESIUM Routine 06/24/2023 3:38 AM EDT BASIC METABOLIC PANEL Routine 06/24/2023 3:38 AM EDT HEPARIN (UNFRACTIONATED) LEVEL Timed 06/23/2023 9:24 PM EDT MESENTERIC COMPLETE Routine 06/23/2023 3 :36 PM EDT Lower abdominal pain HEPARIN (UNFRACTIONATED) LEVEL Timed 06/23/2023 3:01 PM EDT EKG 12-LEAD Routine 06/23/2023 9:54 AM EDT NSTEMI (non-ST elevated myocardial infarction) HEPARIN (UNFRACTIONATED) LEVEL Timed 06/23/2023 4:12 AM EDT HEMOGRAM Routine 06/23/2023 4:12 AM EDT DIFFERENTIAL, AUTOMATED Routine 06/23/2023 4:12 AM EDT CBC (WITH DIFF) Routine 06/23/2023 4:12 AM EDT PHOSPHORUS Routine 06/23/2023 4:12 AM EDT MAGNESIUM Routine 06/23/2023 4:12 AM EDT BASIC METABOLIC PANEL Routine 06/23/2023 4:12 AM EDT ECHO LMTD [...] DIFFERENTIAL, AUTOMATED Routine 06/22/2023 4:34 AM EDT CBC (WITH DIFF) Routine 06/22/2023 4:34 AM EDT PHOSPHORUS Routine 06/22/2023 4:34 AM EDT MAGNESIUM Routine 06/22/2023 4:34 AM EDT BASIC METABOLIC PANEL Routine 06/22/2023 4:[address] ABDOMEN AND PELVIS W CONTRAST Routine 06/21/2023 3:39 PM EDT EKG 12-LEAD Routine 06/21/2023 10:06 AM EDT Chest pain, unspecified type NSTEMI (non-ST elevated myocardial infarction) HC VENIPUNCTURE STAT 06/21/2023 9:45 AM EDT POTASSIUM Routine 06/21/2023 5:58 AM EDT PRO-BRAIN NATRIURETIC PEPTIDE Routine 06/21/2023 5:58 AM EDT HEMOGRAM Routine 06/21/2023 3:25 AM EDT DIFFERENTIAL, AUTOMATED Routine 06/21/2023 3:25 AM EDT CBC (WITH DIFF) Routine 06/21/2023 3:25 AM EDT PHOSPHORUS Routine 06/21/2023 3:25 AM EDT MAGNESIUM Routine 06/21/2023 3:25 AM EDT BASIC METABOLIC PANEL Routine 06/21/2023 3:25 AM EDT HEMOGRAM Routine 06/20/2023 3:32 AM EDT DIFFERENTIAL, AUTOMATED Routine 06/20/2023 3:32 AM EDT CBC (WITH DIFF) Routine 06/20/2023 3:32 AM EDT PHOSPHORUS Routine 06/20/2023 3:32 AM EDT MAGNESIUM Routine 06/20/2023 3:32 AM EDT BASIC METABOLIC PANEL Routine 06/20/2023 3:32 AM EDT PHOSPHORUS Routine 06/19/2023 5:26 PM EDT MAGNESIUM Routine 06/19/2023 5:26 PM EDT BASIC METABOLIC PANEL Routine 06/19/2023 5:26 PM EDT EKG 12-LEAD STAT 06/19/2023 4:24 AM EDT Paroxysmal atrial fibrillation HEMOGRAM Routine 06/19/2023 3:22 AM EDT DIFFERENTIAL, AUTOMATED Routine 06/19/2023 3:22 AM EDT CBC (WITH DIFF) Routine 06/19/2023 3:22 AM EDT PHOSPHORUS Routine 06/19/2023 3:22 AM EDT MAGNESIUM Routine 06/19/2023 3:22 AM EDT BASIC METABOLIC PANEL Routine 06/19/2023 3:22 AM EDT BASIC METABOLIC PANEL Routine 06/18/2023 5:17 PM EDT HEMOGRAM Routine 06/18/2023 4:19 AM EDT DIFFERENTIAL, AUTOMATED Routine 06/18/2023 4:19 AM EDT CBC (WITH DIFF) Routine 06/18/2023 4:19 AM EDT PHOSPHORUS Routine 06/18/2023 4:19 AM EDT MAGNESIUM Routine 06/18/2023 4:19 AM EDT BASIC METABOLIC PANEL Routine 06/18/2023 4:19 AM EDT PHOSPHORUS Timed 06/17/2023 2:26 PM EDT MAGNESIUM Timed 06/17/2023 2:26 PM EDT BASIC METABOLIC PANEL Timed 06/17/2023 2:26 PM EDT XR ABDOMEN FLAT AND UPRIGHT Routine 06/17/2023 11:44 AM EDT BASIC METABOLIC PANEL STAT 06/17/2023 5:01 AM EDT HEMOGRAM Routine 06/17/2023 1:11 AM EDT DIFFERENTIAL, AUTOMATED Routine 06/17/2023 1:11 AM EDT CBC (WITH DIFF) Routine 06/17/2023 1:11 AM EDT MAGNESIUM Routine 06/17/2023 1:11 AM EDT BASIC METABOLIC PANEL STAT 06/17/2023 1:11 AM EDT BASIC METABOLIC PANEL STAT 06/16/2023 8:28 PM EDT BASIC METABOLIC PANEL STAT 06/16/2023 2:29 PM EDT BASIC METABOLIC PANEL STAT 06/16/2023 9:01 AM EDT HEPARIN (UNFRACTIONATED) LEVEL Timed 06/16/2023 3:30 AM EDT HEMOGRAM Routine 06/16/2023 3:30 AM EDT DIFFERENTIAL, AUTOMATED Routine 06/16/2023 3:30 AM EDT CBC (WITH DIFF) Routine 06/16/2023 3:30 AM EDT MAGNESIUM Routine 06/16/2023 3:30 AM EDT LIPID PANEL (REFLEX DIRECT LDL) Routine 06/16/2023 3:30 AM EDT BASIC METABOLIC PANEL STAT 06/16/2023 3:30 AM EDT HEPARIN (UNFRACTIONATED) LEVEL Timed 06/15/2023 9:33 PM EDT BASIC METABOLIC PANEL STAT 06/15/2023 9:33 PM EDT MAGNESIUM STAT 06/15/2023 5:47 PM EDT BASIC METABOLIC PANEL STAT 06/15/2023 5:47 PM EDT RAPID DRUG SCREEN, URINE Routine 06/15/2023 4:46 PM EDT RAPID DRUG SCREEN W/O CONFIRMATION, URINE Routine 06/15/2023 4:46 PM EDT HEPARIN (UNFRACTIONATED) LEVEL Timed 06/15/2023 2:29 PM EDT BASIC METABOLIC PANEL STAT 06/15/2023 2:29 PM EDT EKG 12-LEAD STAT 06/15/2023 10:50 AM EDT Paroxysmal atrial fibrillation HC TROPONIN T STAT 06/15/2023 8:18 AM EDT HEPARIN (UNFRACTIONATED) LEVEL Timed 06/15/2023 8:18 AM EDT BASIC METABOLIC PANEL STAT 06/15/2023 8:18 AM EDT HC TROPONIN T STAT 06/15/2023 4:28 AM EDT HEMOGRAM Routine 06/15/2023 4:28 AM EDT DIFFERENTIAL, AUTOMATED Routine 06/15/2023 4:28 AM EDT PROTHROMBIN TIME Routine 06/15/2023 4:28 AM EDT CBC (WITH DIFF) Routine 06/15/2023 4:28 AM EDT TSH Routine 06/15/2023 4:28 AM EDT PHOSPHORUS Routine 06/15/2023 4:28 AM EDT PRO-BRAIN NATRIURETIC PEPTIDE Routine 06/15/2023 4:28 AM EDT MAGNESIUM Routine 06/15/2023 4:28 AM EDT CALCIUM Routine 06/15/2023 4:28 AM EDT HEPATIC FUNCTION PANEL Routine 06/15/2023 4:28 AM EDT BASIC METABOLIC PANEL Routine 06/15/2023 4:28 AM EDT EKG 12-LEAD Routine 06/15/2023 2:17 AM EDT Chest pain, unspecified type documented in this encounter Results * (ABNORMAL) Basic Metabolic Panel (non-fasting) (08/25/2023 11:28 AM EDT) Glucose 111 65 - 199 mg/dL [facility] Comment:Diabetes: >=200 mg/d L plus symptoms Blood Urea Nitrogen 29(H) 8 - 18 mg/dL [facility] [...] - 107 mmol/L [facility] Carbon Dioxide 29 22 - 31 mmol/L [facility] Anion Gap 12 5 - 15 mmol/L [facility] Calcium 10.0 8.5 - 10.5 mg/dL [facility] Est Glomerular Filtration Rate 44(L) >=60 mL/min/1. 73 m?? [facility] [...] In Lab Terrence Keating MD CHEMISTRY ORDERABLES [facility] [place] [address] * Differential, Automated (07/09/2023 3:03 AM EDT) Neutrophil % 51.4 % [facility] Neutrophil Absolute 3.43 1.70 - 6.10 x10(3)/mcL [facility] Lymph % 31.4 % [facility] Lymphocytes Abs 2.1 0.9 - 3.2 x10(3)/[facility] Monocyte % 10.1 % [facility] Monocyte Abs 0.7 0.3 - 0.9 x10(3)/[facility] Eos % 6.0 % [facility] Eosinophils Abs 0.4 0.0 - 0.4 x10(3)/[facility] Basophil % 0.8 % [facility] Baso Absolute 0.0 0.0 - 0.1 x10(3)/[facility] Immature Gran % 0.30 % [facility] Comment: Immature granulocytes(IG's)percentage and absolute count will include metamyelocytes, myelocytes, and promyelocytes. Blood smears from CBCs yielding IG's will be scanned manually for concordance. If this scan disagrees with the automated IG or if promyelocytes are noted, a manual differential will be performed. Immature Gran Absolute 0.02 0.00 - 0.04 x10(3)/[facility] Blood 07/09/2023 3:03 AM EDT 07/09/2023 3:14 AM EDT Narrative Resulting Agency Comment Spec In Lab Terrence Keating MD HEMATOLOGY ORDERABLE S [facility] [place] [address] * (ABNORMAL) Hemogram (07/09/2023 3:03 AM EDT) White Blood Cell 6.7 4.0 - 9.5 x10(3)/mc L [facility] Red Blood Cell 3.87(L) 4.00 - 5.21 x10(6)/mc L [facility] Hemoglobin 12.4 11.7 - 15.5 g/dL [facility] Hematocrit 36.8 35.7 - 45.8 % [facility] [facility] Mean Cell Volume 95.1(H) 82.6 - 94.4 fL [facility] Mean Cell Hemoglobin 32.0 27.1 - 32.0 pg [facility] Mean Cell Hemoglobin Concentration 33.7 31.7 - 35.0 g/dL [facility] Platelet 209 145 - 357 x10(3)/mc L [facility] RDW Standard Deviation 47.9(H) 37.0 - 46.0 fL [facility] RDW coefficient of variation 13.7 11.5 - 14.1 % [facility] Mean Platelet Volume 10.5 7.6 - 12.9 fL [facility] NRBC% auto 0.0 % [facility] NRBC Absolute 0.000 0.000 - 0.000 x10(3)/mc L [facility] Blood 07/09/2023 3:03 AM EDT 07/09/2023 3:14 AM EDT Narrative Resulting Agency Comment Spec In Lab Terrence Keating MD HEMATOLOGY ORDERABLE S [facility] [place] [address] * Heparin (unfractionated) Level (07/09/2023 3:03 AM EDT) UF Heparin 0.52 IU/mL [facility] Comment: Heparin (anti-Xa) levels [...] Lab Ailyn Irvin MD HEMATOLOGY ORDERABLE S [facility] [place] [address] * (ABNORMAL) Basic Metabolic Panel (non-fasting) (07/09/2023 3:03 AM EDT) Glucose 100 65 - 199 mg/dL [facility] Comment:Diabetes: >=200 mg/d L plus symptoms Blood Urea Nitrogen 12 8 - 18 mg/dL [facility] Creatinine 1.24(H) 0.70 - 1.20 mg/dL [facility] [...] questions. Chloride 104 98 - 107 mmol/L [facility] Carbon Dioxide 22 22 - 31 mmol/L [facility] Anion Gap 12 5 - 15 mmol/L [facility] Calcium 9.3 8.5 - 10.5 mg/dL [facility] Est Glomerular Filtration Rate 52(L) >=60 mL/min/1. 73 m?? [facility] [...] MD CHEMISTRY ORDERABL ES Performing Organization Address [facility]/ZIP Co de Phone Number [facility] [place] [address] * Phosphorus (07/09/2023 3:03 AM EDT) Phosphorus 4.5 2.5 - 4.5 mg/dL [facility] Blood 07/09/2023 3:03 AM EDT 07/09/2023 3:14 AM EDT Narrative Resulting Agency Comment Spec In Lab Eufemia Copeland MD CHEMISTRY ORDERABL ES Performing Organization Address [facility] Co de Phone Number [facility] [place] [address] * Magnesium (07/09/2023 3:03 AM EDT) Magnesium 0.91 0.69 - 1.07 mmol/L [facility] Blood 07/09/2023 3:03 AM EDT 07/09/2023 3:14 AM EDT Narrative Resulting Agency Comment Spec In Lab Eufemia Copeland MD CHEMISTRY ORDERABL ES Performing Organization Address [facility] Co de Phone Number [facility] [place] [address] * Heparin (unfractionated) Level (07/08/2023 12:02 PM EDT) UF Heparin 0.45 IU/mL [facility] Comment: Heparin (anti-Xa) levels [...] MD HEMATOLOGY ORDERABLE S Performing Organization Address City/[facility]/ZIP Co de Phone Number [facility] [place] [address] * EKG 12 Lead (07/08/2023 9:58 AM EDT) Ventricular rate 66 BPM MUSE SYSTEM Atrial Rate 66 BPM MUSE SYSTEM P-R Interval 178 ms MUSE SYSTEM QRS Duration 92 ms MUSE SYSTEM Q-T Interval 486 ms MUSE SYSTEM QTC Calculated (Bezet) 509 ms MUSE SYSTEM Calculated P [place] 29 degrees MUSE SYSTEM Calculated R [place] 33 degrees MUSE SYSTEM Calculated T [place] 29 degrees MUSE SYSTEM INTERPRETATION Normal sinus rhythm Nonspecific ST and T wave abnormality Prolonged QT Abnormal ECG When compared with ECG of 04-JUL-2023 11:41, Criteria for Septal infarct are no longer Present I personally reviewed the tracing and edited the fellows interpretation Confirmed by fellow MD Keyshawn, Katalina ([id number]) on 07/08/2023 3:18:07 PM Confirmed by MD Beatriz, Klarissa ([id number]) on 07/09/2023 6:15:21 AM MUSE SYSTEM 07/08/2023 9:58 AM EDT 07/09/2023 6:15 AM EDT Lisa Beck MD ECG ORDERABLES Performing Organization Address City/[facility]/ZIP Co de Phone Number MUSE SYSTEM * Differential, Automated (07/08/2023 5:52 AM EDT) Pathologist [facility] Neutrophil % 60.6 % [facility] Neutrophil Absolute 4.42 1.70 - 6.10 x10(3)/[facility] LAB[facility]AT[facility] Lymph % 24.8 % [facility] Lymphocytes Abs 1.8 0.9 - 3.2 x10(3)/[facility] LAB[facility]ORY Monocyte % 9.2 % [facility] Monocyte Abs 0.7 0.3 - 0.9 x10(3)/[facility] LAB[facility] Eos % 4.5 % [facility] Eosinophils Abs 0.3 0.0 - 0.4 x10(3)/[facility] Basophil % 0.5 % [facility] Baso Absolute 0.0 0.0 - 0.1 x10(3[place] [place] Gran % 0.40 % [facility] Comment: Immature granulocytes(IG's)percentage and absolute count will include metamyelocytes, myelocytes, and promyelocytes. Blood smears from CBCs yielding IG's will be scanned manually for concordance. If this scan disagrees with the automated IG or if promyelocytes are noted, a manual differential will be performed. Immature Gran Absolute 0.03 0.00 - 0.04 x10(3)/[facility] LAB[facility]ATORY Blood 07/08/2023 5:52 AM EDT 07/08/2023 5:58 AM EDT Narrative Resulting Agency Comment Spec In Lab Terrence Keating MD HEMATOLOGY ORDERABLE S [facility] [place] [address] * (ABNORMAL) Hemogram (07/08/2023 5:52 AM EDT) White Blood Cell 7.3 4.0 - 9.5 x10(3)/mc L [facility] Red Blood Cell 3.94(L) 4.00 - 5.21 x10(6)/mc L [facility] Hemoglobin 12.3 11.7 - 15.5 g/dL [facility] Hematocrit 36.3 35.7 - 45.8 % [facility] Mean Cell Volume 92.1 82.6 - 94.4 fL [facility] Mean Cell Hemoglobin 31.2 27.1 - 32.0 pg [facility] Mean Cell Hemoglobin Concentration 33.9 31.7 - 35.0 g/dL [facility] Platelet 207 145 - 357 x10(3)/mc L [facility] RDW Standard Deviation 44.6 37.0 - 46.0 fL [facility] RDW coefficient of variation 13.3 11.5 - 14.1 % [facility] Mean Platelet Volume 10.5 7.6 - 12.9 fL [facility] NRBC% auto 0.0 % [facility] NRBC Absolute 0.000 0.000 - 0.000 x10(3)/mc L [facility] Blood 07/08/2023 5:52 AM EDT 07/08/2023 5:58 AM EDT Narrative Resulting Agency Comment Spec In Lab Terrence Keating MD HEMATOLOGY ORDERABLE S [facility] [place] [address] * Heparin (unfractionated) Level (07/08/2023 5:52 AM EDT) UF Heparin 0.37 IU/mL [facility] Comment: Heparin (anti-Xa) levels [...] Lab Ailyn Irvin MD HEMATOLOGY ORDERABLE S [facility] [place] [address] * (ABNORMAL) Basic Metabolic Panel (non-fasting) (07/08/2023 5:52 AM EDT) Glucose 102 65 - 199 mg/dL [facility] Comment:Diabetes: >=200 mg/d L plus symptoms Blood Urea Nitrogen 14 8 - 18 mg/dL [facility] Creatinine 1.30(H) 0.70 - 1.20 mg/dL [facility] Sodium 139 135 - 145 mmol/L [facility] Potassium 3.2(L) 3.5 - 5.0 mmol/L [facility] Comment: Please note: ??Patients with WBC >100,000 may have falsely elevated Potassium levels. ??For accurate Potassium quantification in these patients send serum separator tube (gold top) for subsequent determinations. ??Contact the Clinical Chemistry Laboratory if there are any questions. Chloride 101 98 - 107 mmol/L [facility] Carbon Dioxide 25 22 - 31 mmol/L [facility] Anion Gap 13 5 - 15 mmol/L [facility] Calcium 9.3 8.5 - 10.5 mg/dL [facility] Est Glomerular Filtration Rate 49(L) >=60 mL/min/1. 73 m?? [facility] [...] MD CHEMISTRY ORDERABL ES Performing Organization Address City/[facility]/ZIP Co de Phone Number [facility] [place] [address] * Phosphorus (07/08/2023 5:52 AM EDT) Phosphorus 4.3 2.5 - 4.5 mg/dL [facility] Blood 07/08/2023 5:52 AM EDT 07/08/2023 5:58 AM EDT Narrative Resulting Agency Comment Spec In Lab Eufemia Copeland MD CHEMISTRY ORDERABL ES Performing Organization Address [facility] Co de Phone Number [facility] [place] [address] * Magnesium (07/08/2023 5:52 AM EDT) Magnesium 0.89 0.69 - 1.07 mmol/L [facility] Blood 07/08/2023 5:52 AM EDT 07/08/2023 5:58 AM EDT Narrative Resulting Agency Comment Spec In Lab Eufemia Copeland MD CHEMISTRY ORDERABL ES Performing Organization Address [facility] Co de Phone Number [facility] [place] [address] * Heparin (unfractionated) Level (07/08/2023 12:00 AM EDT) UF Heparin 0.22 IU/mL [facility] Comment: Heparin (anti-Xa) levels [...] MD HEMATOLOGY ORDERABLE S Performing Organization Address [facility] de Phone Number [facility] [place] [address] * Specimen to Pathology (07/07/2023 2:55 PM EDT) AP Specimen 07/07/2023 2:55 PM EDT 07/07/2023 2:55 PM EDT Narrative [facility] - 07/07/2023 2:55 PM EDT Specimen requisition ordered. ??Separate Pathology report to follow Terrence Keating MD PATHOLOGY/CYTOLOGY O RDADAM Performing Organization Address [facility] Co de Phone Number [facility] [place] [address] * Specimen to Pathology (07/07/2023 2:38 PM EDT) AP Specimen 07/07/2023 2:38 PM EDT 07/07/2023 2:38 PM EDT Narrative [facility] - 07/07/2023 2:38 PM EDT Specimen requisition ordered. ??Separate Pathology report to follow Terrence Keating MD PATHOLOGY/CYTOLOGY O RDADAM Performing Organization Address [facility] Co de Phone Number [facility] [place] [address] * Specimen to Pathology (07/07/2023 2:38 PM EDT) AP Specimen 07/07/2023 2:38 PM EDT 07/07/2023 2:38 PM EDT Narrative [facility] - 07/07/2023 2:38 PM EDT Specimen requisition ordered. ??Separate Pathology report to follow Terrence Keating MD PATHOLOGY/CYTOLOGY O RDERAFADUMO [facility] [place] [address] * Surgical Pathology Report (07/07/2023 2:25 PM EDT) Final Diagnosis [id number] ? [facility]; A The signing pathologist has (i) examined [...] Sapna Verified: ??07/19/2023 13:25 ??Pathologist Performed at: ??-[facility] Dept. of Pathology, [place] [address] Rfid Technician: Vangie Lu MD, FCAP, ??CLIA Certificate: [id number] SPECIMEN(S) SUBMITTED A - duodenal biopsies rule [...] labeled C1-C2. ??sdy 07/19/2023 1:25 PM EDT [facility] GI Biopsy 07/07/2023 2:25 PM EDT 07/07/2023 2:25 PM EDT GI Biopsy 07/07/2023 2:25 PM EDT 07/07/2023 2:25 PM EDT GI Biopsy 07/07/2023 2:25 PM EDT 07/07/2023 2:25 PM EDT Lashonda Villa MD PATHOLOGY/CYTOLOGY O RDERABLES [facility] [place] [address] * COLONOSCOPY (07/07/2023 1:39 PM EDT) COLONOSCOPY [facility] Endoscopy Procedure Date: 07/07/2023 1:39 PM ? Patient Name: Loida Roque ? Date of : 1970 ? Age: 53 ? Order #: [id number] ? Instrument Name: [id number]- [id number] ? Procedure: ? Colonoscopy Indications: ? Abdominal pain, Diarrhea Providers: ? Lashonda Villa MD, Porsha ? Systrom, Bouchra Mejia Agan Referring MD: ? Medicines: ? Monitored [...] ? was evaluated using the BBPS ? ([place] Bowel Preparation Scale) ? with scores of: [...] Procedure Code(s): ? --- Professional --- ? 64695, Colonoscopy, flexible; with ? biopsy, single or multiple CPT copyright 2022 [employer]. All rights reserved. The codes documented in this report are preliminary and upon casting room helper review may be revised to meet current [...] GENERAL SURGICAL ORD ERABLES Performing Organization Address City/[facility] de Phone Number PROVATION * Shiga Toxin Detection (07/07/2023 12:10 PM EDT) Shiga Toxin Assay EIA Negative for Shiga Toxin 1 EIA Negative for Shiga Toxin 2 [facility] Stool 07/07/2023 12:1 0 PM EDT 07/07/2023 12:53 PM EDT Narrative Resulting Agency Comment Spec In Lab Ailyn Irvin MD MICROBIOLOGY - GENER AL ORDERABLES Performing Organization Address [facility] de Phone Number [facility] [place] [address] * Campylobacter Antigen (07/07/2023 12:10 PM EDT) Campylobacter Ag Immunoassay Negative for Campylobacter Antigen [facility] Stool 07/07/2023 12:1 0 PM EDT 07/07/2023 12:53 PM EDT Narrative Resulting Agency Comment Spec In Lab Ailyn Irvin MD MICROBIOLOGY - GENER AL ORDERABLES Performing Organization Address [facility] de Phone Number [facility] [place] [address] * Stool culture (07/07/2023 12:10 PM EDT) Stool Culture No enteric pathogens isolated [facility] Stool 07/07/2023 12:1 0 PM EDT 07/07/2023 12:53 PM EDT Narrative Resulting Agency Comment Spec In Lab Ailyn Irvin MD MICROBIOLOGY - GENER AL ORDERABLES Performing Organization Address City/[facility]/ZIP Co de Phone Number [facility] [place] [address] * (ABNORMAL) Differential, Automated (07/07/2023 3:51 AM EDT) Neutrophil % 58.9 % [facility] Neutrophil Absolute 4.67 1.70 - 6.10 x10(3)/mc L [facility] Lymph % 24.8 % [facility] Lymphocytes Abs 2.0 0.9 - 3.2 x10(3)/[facility] LABORATORY Monocyte % 9.4 % [facility] Monocyte Abs 0.7 0.3 - 0.9 x10(3)/[facility]OR[facility]ORY Eos % 6.1 % [facility] Eosinophils Abs 0.5(H) 0.0 - 0.4 x10(3)/[facility] LABORATORY Basophil % 0.5 % [facility] Baso Absolute 0.0 0.0 - 0.1 x10(3)/ L [facility] Immature Gran % 0.30 % [facility] Comment: Immature granulocytes(IG's)percentage and absolute count will include metamyelocytes, myelocytes, and promyelocytes. Blood smears from CBCs yielding IG's will be scanned manually for concordance. If this scan disagrees with the automated IG or if promyelocytes are noted, a manual differential will be performed. Immature Gran Absolute 0.02 0.00 - 0.04 x10(3)/ L [facility] Blood 07/07/2023 3:51 AM EDT 07/07/2023 4:08 AM EDT Narrative Resulting Agency Comment Spec In Lab Terrence Keating MD HEMATOLOGY ORDERABLE S Performing Organization Address City/[facility]/ZIP Co de Phone Number [facility] [place] [address] * Hemogram (07/07/2023 3:51 AM EDT) White Blood Cell 7.9 4.0 - 9.5 x10(3)/[facility] LABORATORY Red Blood Cell 4.42 4.00 - 5.21 x10(6)/[facility] LAB[facility]ORY Hemoglobin 13.8 11.7 - 15.5 g/dL [facility] Hematocrit 41.0 35.7 - 45.8 % [facility] Mean Cell Volume 92.8 82.6 - 94.4 fL [facility] Mean Cell Hemoglobin 31.2 27.1 - 32.0 pg [facility] Mean Cell Hemoglobin Concentration 33.7 31.7 - 35.0 g/dL [facility] Platelet 255 145 - 357 x10(3)/[facility] LABORAT[facility] RDW Standard Deviation 44.8 37.0 - 46.0 fL [facility] RDW coefficient of variation 13.2 11.5 - 14.1 % [facility] Mean Platelet Volume 10.6 7.6 - 12.9 fL [facility] NRBC% auto 0.0 % [facility] NRBC Absolute 0.000 0.000 - 0.000 x10(3)/[facility] Blood 07/07/2023 3:51 AM EDT 07/07/2023 4:08 AM EDT Narrative Resulting Agency Comment Spec In Lab Terrence Keating MD HEMATOLOGY ORDERABLE S [facility] [place] [address] * Heparin (unfractionated) Level (07/07/2023 3:51 AM EDT) UF Heparin 0.33 IU/mL [facility] Comment: Heparin (anti-Xa) levels [...] Lab Terrence Keating MD HEMATOLOGY ORDERABLE S [facility] [place] [address] * (ABNORMAL) Basic Metabolic Panel (non-fasting) (07/07/2023 3:51 AM EDT) Glucose 101 65 - 199 mg/dL [facility] Comment:Diabetes: >=200 mg/d L plus symptoms Blood Urea Nitrogen 18 8 - 18 mg/dL [facility] Creatinine 1.30(H) 0.70 - 1.20 mg/dL [facility] Sodium 135 135 - 145 mmol/L [facility] [...] - 107 mmol/L [facility] Carbon Dioxide 23 22 - 31 mmol/L [facility] Anion Gap 16(H) 5 - 15 mmol/L [facility] Calcium 9.4 8.5 - 10.5 mg/dL [facility] Est Glomerular Filtration Rate 49(L) >=60 mL/min/1. 73 m?? [facility] [...] MD CHEMISTRY ORDERABL ES Performing Organization Address [facility] de Phone Number [facility] [place] [address] * Phosphorus (07/07/2023 3:51 AM EDT) Phosphorus 4.0 2.5 - 4.5 mg/dL [facility] Blood 07/07/2023 3:51 AM EDT 07/07/2023 4:08 AM EDT Narrative Resulting Agency Comment Spec In Lab Eufemia Copeland MD CHEMISTRY ORDERABL ES Performing Organization Address [facility] de Phone Number [facility] [place] [address] * Magnesium (07/07/2023 3:51 AM EDT) Magnesium 0.87 0.69 - 1.07 mmol/L [facility] Blood 07/07/2023 3:51 AM EDT 07/07/2023 4:08 AM EDT Narrative Resulting Agency Comment Spec In Lab Eufemia Copeland MD CHEMISTRY ORDERABL ES [facility] [place] [address] * Hepatic Function Panel (07/07/2023 3:51 AM EDT) Protein, Total 7.5 6.1 - 8.0 g/dL [facility] Albumin 4.4 3.2 - 5.2 g/dL [facility] Aspartate Aminotransferase 15 0 - 30 unit/L [facility] Alanine Aminotransferase 20 0 - 30 unit/L [facility] Alkaline Phosphatase 54 35 - 105 unit/L [facility] Bilirubin, Total 0.4 0.2 - 1.3 mg/dL [facility] Bilirubin, Direct 0.1 0.0 - 0.3 mg/dL [facility] Blood 07/07/2023 3:51 AM EDT 07/07/2023 4:08 AM EDT Narrative Resulting Agency Comment Spec In Lab Ailyn Irvin MD CHEMISTRY ORDERABLES Performing Organization Address [facility]/ZIP Co de Phone Number [facility] [place] [address] * Giardia/Cryptosporidium Antigens ([facility]/CGP/APD/NLH) (07/07/2023 12:38 AM EDT) Giardia Antigen Negative Negative [facility] Comment:Examination for othe r intestinal parasites requires foreign travel history. Cryptosporidium Antigen Negative Negative [facility] Stool 07/07/2023 12:3 8 AM EDT 07/07/2023 7:56 AM EDT Narrative Resulting Agency Comment Spec In Lab Ailyn Irvin MD MICROBIOLOGY - GENER AL ORDERABLES [facility] [place] [address] * Hepatic Function Panel (07/06/2023 3:41 PM EDT) Protein, Total 7.6 6.1 - 8.0 g/dL [facility] Albumin 4.3 3.2 - 5.2 g/dL [facility] Aspartate Aminotransferase 20 0 - 30 unit/L [facility] Alanine Aminotransferase 22 0 - 30 unit/L [facility] Alkaline Phosphatase 58 35 - 105 unit/L [facility] Bilirubin, Total 0.4 0.2 - 1.3 mg/dL [facility] Bilirubin, Direct 0.1 0.0 - 0.3 mg/dL [facility] Blood 07/06/2023 3:41 PM EDT 07/06/2023 4:00 PM EDT Narrative Resulting Agency Comment Spec In Lab Terrence Keating MD CHEMISTRY ORDERABLES Performing Organization Address City/State/[facility] Co de Phone Number [facility] [place] [phone] * Hepatic Function Panel (07/06/2023 3:54 AM EDT) Protein, Total 7.6 6.1 - 8.0 g/dL [facility] Albumin 4.3 3.2 - 5.2 g/dL [facility] Aspartate Aminotransferase Not Perf 0 - 30 [facility] Comment: Unable to quantitate due to sample hemolysis. ??Sample redraw suggested. Called by: abimbola, Read back by: Ana Paula Borja, Date/Time:07/06/23 14:08. Alanine Aminotransferase 25 0 - 30 unit/L [facility] Alkaline Phosphatase 58 35 - 105 unit/L [facility] Bilirubin, Total 0.4 0.2 - 1.3 mg/dL [facility] Bilirubin, Direct Not Perf 0.0 - 0.3 [facility] Blood Venous Draw / Unknown 07/06/2023 3:54 AM EDT 07/06/2023 4:18 AM EDT Narrative Resulting Agency Comment Spec In Lab Terrence Keating MD CHEMISTRY ORDERABLES Performing Organization Address City/[facility]/[place] [address] * (ABNORMAL) Differential, Automated (07/06/2023 3:54 AM EDT) Neutrophil % 56.6 % [facility] Neutrophil Absolute 4.34 1.70 - 6.10 x10(3)/mc L [facility] Lymph % 26.1 % [facility] Lymphocytes Abs 2.0 0.9 - 3.2 x10(3)/ L [facility] Monocyte % 9.6 % [facility] Monocyte Abs 0.7 0.3 - 0.9 x10(3)/ L [facility] Eos % 6.6 % [facility] Eosinophils Abs 0.5(H) 0.0 - 0.4 x10(3)/mc L [facility] Basophil % 0.7 % [facility] Baso Absolute 0.0 0.0 - 0.1 x10(3)/ L [facility] Immature Gran % 0.40 % [facility] Comment: Immature granulocytes(IG's)percentage and absolute count will include metamyelocytes, myelocytes, and promyelocytes. Blood smears from CBCs yielding IG's will be scanned manually for concordance. If this scan disagrees with the automated IG or if promyelocytes are noted, a manual differential will be performed. Immature Gran Absolute 0.03 0.00 - 0.04 x10(3)/ L [facility] Blood 07/06/2023 3:54 AM EDT 07/06/2023 4:12 AM EDT Narrative Resulting Agency Comment Spec In Lab Terrence Keating MD HEMATOLOGY ORDERABLE S Performing Organization Address City/[place] [facility]/ZIP Co de Phone Number [facility] [place] [address] * (ABNORMAL) Hemogram (07/06/2023 3:54 AM EDT) [facility] White Blood Cell 7.7 4.0 - 9.5 x10(3)/mc L [facility] Red Blood Cell 4.62 4.00 - 5.21 x10(6)/ L [facility] Hemoglobin 14.7 11.7 - 15.5 g/dL [facility] Hematocrit 43.8 35.7 - 45.8 % [facility] Mean Cell Volume 94.8(H) 82.6 - 94.4 fL [facility] Mean Cell Hemoglobin 31.8 27.1 - 32.0 pg [facility] Mean Cell Hemoglobin Concentration 33.6 31.7 - 35.0 g/dL [facility] Platelet 243 145 - 357 x10(3)/[facility] LABORATORY RDW Standard Deviation 47.2(H) 37.0 - 46.0 fL [facility] RDW coefficient of variation 13.5 11.5 - 14.1 % [facility] Mean Platelet Volume 10.4 7.6 - 12.9 fL [facility] NRBC% auto 0.0 % [facility] NRBC Absolute 0.000 0.000 - 0.000 x10(3)/[facility] LABORATORY Blood 07/06/2023 3:54 AM EDT 07/06/2023 4:12 AM EDT Narrative Resulting Agency Comment Spec In Lab Terrence Keating MD HEMATOLOGY ORDERABLE S [facility] [place] [address] * (ABNORMAL) Basic Metabolic Panel (non-fasting) (07/06/2023 3:54 AM EDT) [facility] Glucose 107 65 - 199 mg/dL [facility] Comment:Diabetes: >=200 mg/d L plus symptoms Blood Urea Nitrogen 16 8 - 18 mg/dL [facility] Creatinine 1.25(H) 0.70 - 1.20 mg/dL [facility] Sodium 135 135 - 145 mmol/L [facility] Potassium 3.9 3.5 - 5.0 mmol/L [facility] Comment: Please note: ??Patients with WBC >100,000 may have falsely elevated Potassium levels. ??For accurate Potassium quantification in these patients send serum separator tube (gold top) for subsequent determinations. ??Contact the Clinical Chemistry Laboratory if there are any questions. Chloride 98 98 - 107 mmol/L [facility] Carbon Dioxide 23 22 - 31 mmol/L [facility] Anion Gap 14 5 - 15 mmol/L [facility] Calcium 10.0 8.5 - 10.5 mg/dL [facility] Est Glomerular Filtration Rate 51(L) >=60 mL/min/1. 73 m?? [facility] [...] CHEMISTRY ORDERABL ES [facility] [place] [address] * Phosphorus (07/06/2023 3:54 AM EDT) Phosphorus 4.5 2.5 - 4.5 mg/dL [facility] Blood 07/06/2023 3:54 AM EDT 07/06/2023 4:18 AM EDT Narrative Resulting Agency Comment Spec In Lab Eufemia Copeland MD CHEMISTRY ORDERABL ES Performing Organization Address [facility] Co de Phone Number [facility] [place] [address] * Magnesium (07/06/2023 3:54 AM EDT) Magnesium 0.97 0.69 - 1.07 mmol/L [facility] Blood 07/06/2023 3:54 AM EDT 07/06/2023 4:18 AM EDT Narrative Resulting Agency Comment Spec In Lab Eufemia Copeland MD CHEMISTRY ORDERABL ES Performing Organization Address [facility] de Phone Number [facility] [place] [address] * Heparin (unfractionated) Level (07/06/2023 3:54 AM EDT) Pathologist [facility] UF Heparin 0.31 IU/mL [facility] Comment: Heparin (anti-Xa) levels [...] MD HEMATOLOGY ORDERABLE S Performing Organization Address [facility]/ZIP Co de Phone Number [facility] [place] [address] * Amylase (07/05/2023 5:44 PM EDT) Amylase 35 28 - 100 unit/L [facility] Blood 07/05/2023 5:44 PM EDT 07/05/2023 6:00 PM EDT Narrative Resulting Agency Comment Spec In Lab Terrence Keating MD CHEMISTRY ORDERABLES Performing Organization Address [facility] Co de Phone Number [facility] [place] [address] * Lipase (07/05/2023 5:44 PM EDT) Pathologist [facility] Lipase 17 0 - 60 unit/L [facility] Blood 07/05/2023 5:44 PM EDT 07/05/2023 6:00 PM EDT Narrative Resulting Agency Comment Spec In Lab Terrence Keating MD CHEMISTRY ORDERABLES Performing Organization Address [facility] Co de Phone Number [facility] [place] [address] * (ABNORMAL) Basic Metabolic Panel (non-fasting) (07/05/2023 5:44 PM EDT) Glucose 130 65 - 199 mg/dL [facility] Comment:Diabetes: >=200 mg/d L plus symptoms Blood Urea Nitrogen 17 8 - 18 mg/dL [facility] Creatinine 1.30(H) 0.70 - 1.20 mg/dL [facility] [...] questions. Chloride 98 98 - 107 mmol/L [facility] Carbon Dioxide 21(L) 22 - 31 mmol/L [facility] Anion Gap 15 5 - 15 mmol/L [facility] Calcium 9.6 8.5 - 10.5 mg/dL [facility] Est Glomerular Filtration Rate 49(L) >=60 mL/min/1. 73 m?? [facility] [...] In Lab Terrence Keating MD CHEMISTRY ORDERABLES [facility] [place] [address] * Duplex Study Visceral Arteries, Comp (07/05/2023 9:46 AM EDT) VB Text Report Department: Vascular Surgery Lab Patient: [id number] (LOIDA ROQUE) CPT: [id number] Referring Physician: TERRENCE KEATING ?? Phone: Indications: [...] ?Bi-Triphasic ?101 ?11 ?? Hepatic Artery ? Rusk-Biphasic ? 123 ?23 ?? Splenic Artery ? Rusk-Biphasic ? 122 ?24 ?? Inf Mes Artery [...] * Differential, Automated (07/05/2023 5:05 AM EDT) Neutrophil % 63.0 % [facility] Neutrophil Absolute 5.59 1.70 - 6.10 x10(3)/[facility] LABORATORY Lymph % 22.4 % [facility] Lymphocytes Abs 2.0 0.9 - 3.2 x10(3)/[facility] LABORATORY Monocyte % 9.7 % [facility] Monocyte Abs 0.9 0.3 - 0.9 x10(3)/[facility] LABORATORY Eos % 4.1 % [facility] Eosinophils Abs 0.4 0.0 - 0.4 x10(3)/[facility] LABORATORY Basophil % 0.6 % [facility] Baso Absolute 0.0 0.0 - 0.1 x10(3)/[facility] LABORATORY Immature Gran % 0.20 % [facility] Comment: Immature granulocytes(IG's)percentage and absolute count will include metamyelocytes, myelocytes, and promyelocytes. Blood smears from CBCs yielding IG's will be scanned manually for concordance. If this scan disagrees with the automated IG or if promyelocytes are noted, a manual differential will be performed. Immature Gran Absolute 0.02 0.00 - 0.04 x10(3)/[facility] LABORATORY Blood 07/05/2023 5:05 AM EDT 07/05/2023 5:17 AM EDT Narrative Resulting Agency Comment Spec In Lab Terrence Keating MD HEMATOLOGY ORDERABLE S [facility] [place] [address] * (ABNORMAL) Hemogram (07/05/2023 5:05 AM EDT) White Blood Cell 8.9 4.0 - 9.5 x10(3)/mc L [facility] Red Blood Cell 4.42 4.00 - 5.21 x10(6)/mc L [facility] Hemoglobin 13.7 11.7 - 15.5 g/dL [facility] Hematocrit 41.4 35.7 - 45.8 % [facility] Mean Cell Volume 93.7 82.6 - 94.4 fL [facility] Mean Cell Hemoglobin 31.0 27.1 - 32.0 pg [facility] Mean Cell Hemoglobin Concentration 33.1 31.7 - 35.0 g/dL [facility] Platelet 245 145 - 357 x10(3)/mc L [facility] RDW Standard Deviation 47.1(H) 37.0 - 46.0 fL [facility] RDW coefficient of variation 13.7 11.5 - 14.1 % [facility] Mean Platelet Volume 10.8 7.6 - 12.9 fL [facility] NRBC% auto 0.0 % [facility] NRBC Absolute 0.000 0.000 - 0.000 x10(3)/mc L [facility] Blood 07/05/2023 5:05 AM EDT 07/05/2023 5:17 AM EDT Narrative Resulting Agency Comment Spec In Lab Terrence Keating MD HEMATOLOGY ORDERABLE S [facility] [place] [address] * Heparin (unfractionated) Level (07/05/2023 5:05 AM EDT) Pathologist [facility] UF Heparin 0.35 IU/mL [facility] Comment: Heparin (anti-Xa) levels [...] Lab Ailyn Irvin MD HEMATOLOGY ORDERABLE S [facility] [place] [address] * (ABNORMAL) Basic Metabolic Panel (non-fasting) (07/05/2023 5:05 AM EDT) [facility] Glucose 114 65 - 199 mg/dL [facility] Comment:Diabetes: >=200 mg/d L plus symptoms Blood Urea Nitrogen 19(H) 8 - 18 mg/dL [facility] Creatinine 1.51(H) 0.70 - 1.20 mg/dL [facility] [...] questions. Chloride 97(L) 98 - 107 mmol/L [facility] Carbon Dioxide 25 22 - 31 mmol/L [facility] Anion Gap 12 5 - 15 mmol/L [facility] Calcium 10.0 8.5 - 10.5 mg/dL [facility] Est Glomerular Filtration Rate 41(L) >=60 mL/min/1. 73 m?? [facility] [...] CHEMISTRY ORDERABL ES [facility] [place] [address] * (ABNORMAL) Phosphorus (07/05/2023 5:05 AM EDT) Phosphorus 5.0(H) 2.5 - 4.5 mg/dL [facility] Blood 07/05/2023 5:05 AM EDT 07/05/2023 5:17 AM EDT Narrative Resulting Agency Comment Spec In Lab Eufemia Copeland MD CHEMISTRY ORDERABL ES [facility] [place] [address] * Magnesium (07/05/2023 5:05 AM EDT) Magnesium 1.01 0.69 - 1.07 mmol/L [facility] Blood 07/05/2023 5:05 AM EDT 07/05/2023 5:17 AM EDT Narrative Resulting Agency Comment Spec In Lab Eufemia Copeland MD CHEMISTRY ORDERABL ES Performing Organization Address City/[facility]/ZIP Co de Phone Number [facility] [place] [address] * EKG 12 Lead (07/04/2023 11:41 AM EDT) Ventricular rate 76 BPM MUSE SYSTEM Atrial Rate 76 BPM MUSE SYSTEM P-R Interval 174 ms MUSE SYSTEM QRS Duration 88 ms MUSE SYSTEM Q-T Interval 450 ms MUSE SYSTEM QTC Calculated (Bezet) 506 ms MUSE SYSTEM Calculated P [place] 36 degrees MUSE SYSTEM Calculated R [place] 35 degrees MUSE SYSTEM Calculated T [place] 37 degrees MUSE SYSTEM INTERPRETATION Normal sinus [...] Beck MD ECG ORDERABLES Performing Organization Address City/[facility]/ZIP Co de Phone Number MUSE SYSTEM * Differential, Automated (07/04/2023 3:47 AM EDT) Pathologist [facility] Neutrophil % 63.5 % [facility] Neutrophil Absolute 5.19 1.70 - 6.10 x10(3)/[facility] LABORATORY Lymph % 24.4 % [facility] Lymphocytes Abs 2.0 0.9 - 3.2 x10(3)/[facility] LABORATORY Monocyte % 8.1 % [facility] Monocyte Abs 0.7 0.3 - 0.9 x10(3)/[facility] LABORATORY Eos % 3.4 % [facility] Eosinophils Abs 0.3 0.0 - 0.4 x10(3)/[facility] LABORATORY Basophil % 0.4 % [facility] Baso Absolute 0.0 0.0 - 0.1 x10(3)/[facility] LABORATORY Immature Gran % 0.20 % [facility] Comment: Immature granulocytes(IG's)percentage and absolute count will include metamyelocytes, myelocytes, and promyelocytes. Blood smears from CBCs yielding IG's will be scanned manually for concordance. If this scan disagrees with the automated IG or if promyelocytes are noted, a manual differential will be performed. Immature Gran Absolute 0.02 0.00 - 0.04 x10(3)/[facility] LABORATORY Blood 07/04/2023 3:47 AM EDT 07/04/2023 4:15 AM EDT Narrative Resulting Agency Comment Spec In Lab Terrence Keating MD HEMATOLOGY ORDERABLE S [facility] [place] [address] * (ABNORMAL) Hemogram (07/04/2023 3:47 AM EDT) White Blood Cell 8.2 4.0 - 9.5 x10(3)/mc L [facility] Red Blood Cell 4.26 4.00 - 5.21 x10(6)/ L [facility] Hemoglobin 13.5 11.7 - 15.5 g/dL [facility] Hematocrit 40.0 35.7 - 45.8 % [facility] Mean Cell Volume 93.9 82.6 - 94.4 fL [facility] Mean Cell Hemoglobin 31.7 27.1 - 32.0 pg [facility] Mean Cell Hemoglobin Concentration 33.8 31.7 - 35.0 g/dL [facility] Platelet 219 145 - 357 x10(3)/mc L [facility] RDW Standard Deviation 47.0(H) 37.0 - 46.0 fL [facility] RDW coefficient of variation 13.7 11.5 - 14.1 % [facility] Mean Platelet Volume 11.0 7.6 - 12.9 [facility] LABORATORY NRBC% auto 0.0 % [facility] NRBC Absolute 0.000 0.000 - 0.000 x10(3)/mc L [facility] Blood 07/04/2023 3:47 AM EDT 07/04/2023 4:15 AM EDT Narrative Resulting Agency Comment Spec In Lab Terrence Keating MD HEMATOLOGY ORDERABLE S Performing Organization Address [facility]/ZIP Co de Phone Number [facility] [place] [address] * Heparin (unfractionated) Level (07/04/2023 3:47 AM EDT) UF Heparin 0.44 IU/mL [facility] Comment: Heparin (anti-Xa) levels [...] MD HEMATOLOGY ORDERABLE S Performing Organization Address City/[facility]/ZIP Co de Phone Number [facility] [place] [address] * (ABNORMAL) Basic Metabolic Panel (non-fasting) (07/04/2023 3:47 AM EDT) Glucose 104 65 - 199 mg/dL [facility] Comment:Diabetes: >=200 mg/d L plus symptoms Blood Urea Nitrogen 16 8 - 18 mg/dL [facility] Creatinine 1.28(H) 0.70 - 1.20 mg/dL [facility] [...] - 107 mmol/L [facility] Carbon Dioxide 21(L) 22 - 31 mmol/L [facility] Anion Gap 16(H) 5 - 15 mmol/L [facility] Calcium 9.5 8.5 - 10.5 mg/dL [facility] Est Glomerular Filtration Rate 50(L) >=60 mL/min/1. 73 m?? [facility] [...] CHEMISTRY ORDERABL ES [facility] [place] [address] * (ABNORMAL) Phosphorus (07/04/2023 3:47 AM EDT) Phosphorus 4.9(H) 2.5 - 4.5 mg/dL [facility] Blood 07/04/2023 3:47 AM EDT 07/04/2023 4:15 AM EDT Narrative Resulting Agency Comment Spec In Lab Eufemia Copeland MD CHEMISTRY ORDERABL ES Performing Organization Address [facility] Co de Phone Number [facility] [place] [address] * Magnesium (07/04/2023 3:47 AM EDT) Pathologist [facility] Magnesium 1.05 0.69 - 1.07 mmol/L [facility] Blood 07/04/2023 3:47 AM EDT 07/04/2023 4:15 AM EDT Narrative Resulting Agency Comment Spec In Lab Eufemia Copeland MD CHEMISTRY ORDERABL ES Performing Organization Address [facility] Co de Phone Number [facility] [place] [address] * EKG 12 Lead (07/03/2023 9:36 PM EDT) Ventricular rate 61 BPM MUSE SYSTEM Atrial Rate 61 BPM MUSE SYSTEM P-R Interval 188 ms MUSE SYSTEM QRS Duration 88 ms MUSE SYSTEM Q-T Interval 512 ms MUSE SYSTEM QTC Calculated (Bezet) 515 ms MUSE SYSTEM Calculated P [place] 56 degrees MUSE SYSTEM Calculated R [place] 69 degrees MUSE SYSTEM Calculated T [place] 29 degrees MUSE SYSTEM INTERPRETATION Normal sinus rhythm Possible Lateral infarct (cited on or before 30-JUN-2023) Marked ST abnormality, possible inferior subendocardial injury Prolonged QT Abnormal ECG When compared with ECG of 03-JUL-2023 14:27, Nonspecific T wave abnormality no longer evident in Anterior leads Confirmed by MD Henderson Katharine (Ashley) on 07/05/2023 6:21:08 AM MUSE SYSTEM 07/03/2023 9:36 PM EDT 07/05/2023 6:21 AM EDT Lisa Beck MD ECG ORDERABLES MUSE SYSTEM * Magnesium (07/03/2023 6:00 PM EDT) Magnesium 0.89 0.69 - 1.07 mmol/L [facility] Blood 07/03/2023 6:00 PM EDT 07/03/2023 6:07 PM EDT Narrative Resulting Agency Comment Spec In Lab Lino Calles MD CHEMISTRY ORDERABLES Performing Organization Address City/[facility]/ZIP Co de Phone Number [facility] [place] [address] * (ABNORMAL) Basic Metabolic Panel (non-fasting) (07/03/2023 6:00 PM EDT) Glucose 116 65 - 199 mg/dL [facility] Comment:Diabetes: >=200 mg/d L plus symptoms Blood Urea Nitrogen 16 8 - 18 mg/dL [facility] - 107 mmol/L [facility] Carbon Dioxide 21(L) 22 - 31 mmol/L [facility] Anion Gap 14 5 - 15 mmol/L [facility] Calcium 9.5 8.5 - 10.5 mg/dL [facility] Est Glomerular Filtration Rate 46(L) >=60 mL/min/1. 73 m?? [facility] In Lab Lino Calles MD CHEMISTRY ORDERABLES [facility] [place] [address] * XR Chest One View (07/03/2023 3:18 PM EDT) WORKSTATION ID [id number] RAD Anatomical Region Laterality Modality Chest N/A [...] ? Electronically signed by: Itz Hayward MD, [facility] ??([phone]), at 07/03/2023 3:27 PM Narrative 07/03/2023 3:27 [...] first. Electronically signed by: Itz Hayward MD, [facility]([phone]), at 07/03/2023 3:27 PM Lino Calles MD IMG DX ORDERABLES * Arterial Duplex Leg, Unil (07/03/2023 9:34 AM EDT) VB Text Report Department: Vascular Surgery Lab Patient: [id number] (LOIDA ROQUE) CPT: [id number] Referring Physician: LINO CALLES ?? Phone: Indications: [...] * Differential, Automated (07/03/2023 3:07 AM EDT) Neutrophil % 67.2 % [facility] Neutrophil Absolute 5.51 1.70 - 6.10 x10(3)/[facility] LABORATORY Lymph % 20.7 % [facility] Lymphocytes Abs 1.7 0.9 - 3.2 x10(3)/[facility] LABORATORY Monocyte % 7.7 % [facility] Monocyte Abs 0.6 0.3 - 0.9 x10(3)/[facility] LABORATORY Eos % 3.7 % [facility] Eosinophils Abs 0.3 0.0 - 0.4 x10(3)/[facility] LABORATORY Basophil % 0.5 % [facility] Baso Absolute 0.0 0.0 - 0.1 x10(3)/[facility] LABORATORY Immature Gran % 0.20 % [facility] Comment: Immature granulocytes(IG's)percentage and absolute count will include metamyelocytes, myelocytes, and promyelocytes. Blood smears from CBCs yielding IG's will be scanned manually for concordance. If this scan disagrees with the automated IG or if promyelocytes are noted, a manual differential will be performed. Immature Gran Absolute 0.02 0.00 - 0.04 x10(3)/[facility] LABORATORY Blood 07/03/2023 3:07 AM EDT 07/03/2023 3:15 AM EDT Narrative Resulting Agency Comment Spec In Lab Terrence Keating MD HEMATOLOGY ORDERABLE S [facility] [place] [address] * (ABNORMAL) Hemogram (07/03/2023 3:07 AM EDT) White Blood Cell 8.2 4.0 - 9.5 x10(3)/mc L [facility] Red Blood Cell 3.97(L) 4.00 - 5.21 x10(6)/mc L [facility] Hemoglobin 12.5 11.7 - 15.5 g/dL [facility] Hematocrit 38.5 35.7 - 45.8 % [facility] Mean Cell Volume 97.0(H) 82.6 - 94.4 [facility] LABORATORY Mean Cell Hemoglobin 31.5 27.1 - 32.0 pg [facility] Mean Cell Hemoglobin Concentration 32.5 31.7 - 35.0 g/dL [facility] Platelet 203 145 - 357 x10(3)/mc L [facility] RDW Standard Deviation 49.6(H) 37.0 - 46.0 [facility] LABORATORY RDW coefficient of variation 13.7 11.5 - 14.1 % [facility] Mean Platelet Volume 10.8 7.6 - 12.9 fL [facility] NRBC% auto 0.0 % [facility] NRBC Absolute 0.000 0.000 - 0.000 x10(3)/mc L [facility] Blood 07/03/2023 3:07 AM EDT 07/03/2023 3:15 AM EDT Narrative Resulting Agency Comment Spec In Lab Terrence Keating MD HEMATOLOGY ORDERABLE S Performing Organization Address City/[facility]/ZIP Co de Phone Number [facility] [place] [address] * Heparin (unfractionated) Level (07/03/2023 3:07 AM EDT) Pathologist [facility] UF Heparin 0.49 IU/mL [facility] Comment: Heparin (anti-Xa) levels [...] MD HEMATOLOGY ORDERABLE S Performing Organization Address [facility]/ZIP Co de Phone Number [facility] [place] [address] * (ABNORMAL) Basic Metabolic Panel (non-fasting) (07/03/2023 3:07 AM EDT) Glucose 104 65 - 199 mg/dL [facility] Comment:Diabetes: >=200 mg/d L plus symptoms Blood Urea Nitrogen 16 8 - 18 mg/dL [facility] - 107 mmol/L [facility] Carbon Dioxide 20(L) 22 - 31 mmol/L [facility] Anion Gap 11 5 - 15 mmol/L [facility] Calcium 8.8 8.5 - 10.5 mg/dL [facility] Est Glomerular Filtration Rate 54(L) >=60 mL/min/1. 73 m?? [facility] CHEMISTRY ORDERABL ES [facility] [place] [address] * Phosphorus (07/03/2023 3:07 AM EDT) Phosphorus 3.6 2.5 - 4.5 mg/dL [facility] Blood 07/03/2023 3:07 AM EDT 07/03/2023 3:15 AM EDT Narrative Resulting Agency Comment Spec In Lab Eufemia Copeland MD CHEMISTRY ORDERABL ES Performing Organization Address [facility] Co de Phone Number [facility] [place] [address] * Magnesium (07/03/2023 3:07 AM EDT) Magnesium 0.93 0.69 - 1.07 mmol/L [facility] Blood 07/03/2023 3:07 AM EDT 07/03/2023 3:15 AM EDT Narrative Resulting Agency Comment Spec In Lab Eufemia Copeland MD CHEMISTRY ORDERABL ES Performing Organization Address [facility] Co de Phone Number [facility] [place] [address] * Heparin (unfractionated) Level (07/02/2023 8:58 PM EDT) UF Heparin 0.60 IU/mL [facility] Comment: Heparin (anti-Xa) levels [...] Resulting Agency Comment Spec In Lab Lino L Calles MD HEMATOLOGY ORDERABLE S [facility] [place] [address] * VS Arteriogram Mesenteric Vascular Surgery (07/02/2023 [...] anesthetic: 10 cc 1% lidocaine Heparin: Yes 11418 ?? Units Protamine: No ??mg Antibiotics: Ancef [...] We exchanged the sheath for a [employer] [place] tourist camp attendant steerable sheath over a stiff wire. ??A [employer] and [employer] catheter were used to selectively cannulate the superior mesenteric artery. ??Direct angiography of the superior mesenteric artery was performed, confirming the results of the nonselective aortography performed. ??The lesion was predilated with a 4 mm x 40 mm [place] balloon, and then a 6 mm X [...] MD 07/07/2023 10:48 AM Ailyn Irvin MD IM IR ORDERABLES * Differential, Automated (07/02/2023 3:58 AM EDT) Neutrophil % 61.3 % [facility] Neutrophil Absolute 4.67 1.70 - 6.10 x10(3)/[facility] Lymph % 27.6 % [facility] Lymphocytes Abs 2.1 0.9 - 3.2 x10(3)/[facility] Monocyte % 6.4 % [facility] Monocyte Abs 0.5 0.3 - 0.9 x10(3)/[facility] Eos % 3.9 % [facility] Eosinophils Abs 0.3 0.0 - 0.4 x10(3)/[facility] [place]ophil % 0.5 % [facility] Baso Absolute 0.0 0.0 - 0.1 x10(3)/[facility] Immature Gran % 0.30 % [facility] Comment: Immature granulocytes(IG's)percentage and absolute count will include metamyelocytes, myelocytes, and promyelocytes. Blood smears from CBCs yielding IG's will be scanned manually for concordance. If this scan disagrees with the automated IG or if promyelocytes are noted, a manual differential will be performed. Immature Gran Absolute 0.02 0.00 - 0.04 x10(3)/mcL [facility] Blood 07/02/2023 3:58 AM EDT 07/02/2023 4:14 AM EDT Narrative Resulting Agency Comment Spec In Lab Terrence Keating MD HEMATOLOGY ORDERABLE S Performing Organization Address City/State/[facility] Co de Phone Number [facility] [place] [address] * (ABNORMAL) Hemogram (07/02/2023 3:58 AM EDT) White Blood Cell 7.6 4.0 - 9.5 x10(3)/mc L [facility] Red Blood Cell 4.12 4.00 - 5.21 x10(6)/mc L [facility] Hemoglobin 12.9 11.7 - 15.5 g/dL [facility] Hematocrit 39.5 35.7 - 45.8 % [facility] Mean Cell Volume 95.9(H) 82.6 - 94.4 fL [facility] Mean Cell Hemoglobin 31.3 27.1 - 32.0 pg [facility] Mean Cell Hemoglobin Concentration 32.7 31.7 - 35.0 g/dL [facility] Platelet 200 145 - 357 x10(3)/mc L [facility] RDW Standard Deviation 47.4(H) 37.0 - 46.0 fL [facility] RDW coefficient of variation 13.3 11.5 - 14.1 % [facility] Mean Platelet Volume 10.8 7.6 - 12.9 fL [facility] NRBC% auto 0.0 % [facility] NRBC Absolute 0.000 0.000 - 0.000 x10(3)/mc L [facility] Blood 07/02/2023 3:58 AM EDT 07/02/2023 4:14 AM EDT Narrative Resulting Agency Comment Spec In Lab Terrence Keating MD HEMATOLOGY ORDERABLE S Performing Organization Address City/[facility]/ZIP Co de Phone Number [facility] [place] [address] * Heparin (unfractionated) Level (07/02/2023 3:58 AM EDT) UF Heparin 0.57 IU/mL [facility] Comment: Heparin (anti-Xa) levels [...] MD HEMATOLOGY ORDERABLE S Performing Organization Address City/[facility]/ZIP Co de Phone Number [facility] [place] [address] * (ABNORMAL) Basic Metabolic Panel (non-fasting) (07/02/2023 3:58 AM EDT) Glucose 96 65 - 199 mg/dL [facility] Comment:Diabetes: >=200 mg/d L plus symptoms Blood Urea Nitrogen 15 8 - 18 mg/dL [facility] Creatinine 1.21(H) 0.70 - 1.20 mg/dL [facility] Sodium 133(L) 135 - 145 mmol/L [facility] Potassium 4.1 3.5 - 5.0 mmol/L [facility] Comment: Please note: ??Patients with WBC >100,000 may have falsely elevated Potassium levels. ??For accurate Potassium quantification in these patients send serum separator tube (gold top) for subsequent determinations. ??Contact the Clinical Chemistry Laboratory if there are any questions. Chloride 104 98 - 107 mmol/L [facility] Carbon Dioxide 21(L) 22 - 31 mmol/L [facility] Anion Gap 8 5 - 15 mmol/L [facility] Calcium 8.8 8.5 - 10.5 mg/dL [facility] Est Glomerular Filtration Rate 53(L) >=60 mL/min/1. 73 m?? [facility] CHEMISTRY ORDERABL ES [facility] [place] [address] * Phosphorus (07/02/2023 3:58 AM EDT) Phosphorus 3.8 2.5 - 4.5 mg/dL [facility] Blood 07/02/2023 3:58 AM EDT 07/02/2023 4:14 AM EDT Narrative Resulting Agency Comment Spec In Lab Eufemia Copeland MD CHEMISTRY ORDERABL ES Performing Organization Address [facility] Co de Phone Number [facility] [place] [address] * Magnesium (07/02/2023 3:58 AM EDT) Magnesium 0.95 0.69 - 1.07 mmol/L [facility] Blood 07/02/2023 3:58 AM EDT 07/02/2023 4:14 AM EDT Narrative Resulting Agency Comment Spec In Lab Eufemia Copeland MD CHEMISTRY ORDERABL ES Performing Organization Address [facility] de Phone Number [facility] [place] [address] * EKG 12 Lead (07/01/2023 12:08 PM EDT) Ventricular rate 48 BPM MUSE SYSTEM Atrial Rate 48 BPM MUSE SYSTEM P-R Interval 192 ms MUSE SYSTEM QRS Duration 92 ms MUSE SYSTEM Q-T Interval 474 ms MUSE SYSTEM QTC Calculated (Bezet) 423 ms MUSE SYSTEM Calculated P [place] 32 degrees MUSE SYSTEM Calculated R [place] 45 degrees MUSE SYSTEM Calculated T [place] 0 degrees MUSE SYSTEM INTERPRETATION Sinus bradycardia Lateral infarct (cited on or before 30-JUN-2023) Abnormal ECG When compared with ECG of 30-JUN-2023 12:05, Nonspecific T wave abnormality, worse in Inferior leads Nonspecific T wave abnormality, worse in Anterolateral leads QT has shortened Confirmed by MD YOO SALVATORE ([id number]) on 07/01/2023 2:03:56 PM MUSE SYSTEM 07/01/2023 12:0 8 PM EDT 07/01/2023 2:03 PM EDT Terrence Keating MD ECG ORDERABLES Performing Organization Address [facility] Co de Phone Number MUSE SYSTEM * Differential, Automated (07/01/2023 2:56 AM EDT) Neutrophil % 50.5 % [facility] Neutrophil Absolute 3.47 1.70 - 6.10 x10(3)/[facility] Lymph % 36.5 % [facility] Lymphocytes Abs 2.5 0.9 - 3.2 x10(3)/[facility] Monocyte % 7.7 % [facility] Monocyte Abs 0.5 0.3 - 0.9 x10(3)/[facility] Eos % 4.5 % [facility] Eosinophils Abs 0.3 0.0 - 0.4 x10(3)/[facility] Basophil % 0.7 % [facility] Baso Absolute 0.0 0.0 - 0.1 x10(3)/[facility] Immature Gran % 0.10 % [facility] Comment: Immature granulocytes(IG's)percentage and absolute count will include metamyelocytes, myelocytes, and promyelocytes. Blood smears from CBCs yielding IG's will be scanned manually for concordance. If this scan disagrees with the automated IG or if promyelocytes are noted, a manual differential will be performed. Immature Gran Absolute 0.01 0.00 - 0.04 x10(3)/[facility] Blood 07/01/2023 2:56 AM EDT 07/01/2023 3:22 AM EDT Narrative Resulting Agency Comment Spec In Lab Terrence Keating MD HEMATOLOGY ORDERABLE S [facility] [place] [address] * (ABNORMAL) Hemogram (07/01/2023 2:56 AM EDT) White Blood Cell 6.9 4.0 - 9.5 x10(3)/[facility] LABORATORY Red Blood Cell 4.04 4.00 - 5.21 x10(6)/mc L [facility] Hemoglobin 12.8 11.7 - 15.5 g/dL [facility] Hematocrit 39.0 35.7 - 45.8 % [facility] Mean Cell Volume 96.5(H) 82.6 - 94.4 fL [facility] Mean Cell Hemoglobin 31.7 27.1 - 32.0 pg [facility] Mean Cell Hemoglobin Concentration 32.8 31.7 - 35.0 g/dL [facility] Platelet 224 145 - 357 x10(3)/mc L [facility] RDW Standard Deviation 47.8(H) 37.0 - 46.0 fL [facility] RDW coefficient of variation 13.3 11.5 - 14.1 % [facility] Mean Platelet Volume 11.1 7.6 - 12.9 fL [facility] NRBC% auto 0.0 % [facility] NRBC Absolute 0.000 0.000 - 0.000 x10(3)/mc L [facility] Blood 07/01/2023 2:56 AM EDT 07/01/2023 3:22 AM EDT Narrative Resulting Agency Comment Spec In Lab Terrence Keating MD HEMATOLOGY ORDERABLE S [facility] [place] [address] * Heparin (unfractionated) Level (07/01/2023 2:56 AM EDT) UF Heparin 0.56 IU/mL [facility] Comment: Heparin (anti-Xa) levels [...] Narrative Resulting Agency Comment Spec In Lab iAlyn Irvin MD HEMATOLOGY ORDERABLE S [facility] [place] [address] * (ABNORMAL) Basic Metabolic Panel (non-fasting) (07/01/2023 2:56 AM EDT) Glucose 95 65 - 199 mg/dL [facility] Comment:Diabetes: >=200 mg/d L plus symptoms Blood Urea Nitrogen 16 8 - 18 mg/dL [facility] Creatinine 1.21(H) 0.70 - 1.20 mg/dL [facility] [...] - 107 mmol/L [facility] Carbon Dioxide 22 22 - 31 mmol/L [facility] Anion Gap 10 5 - 15 mmol/L [facility] Calcium 9.0 8.5 - 10.5 mg/dL [facility] Est Glomerular Filtration Rate 53(L) >=60 mL/min/1. 73 m?? [facility] [...] MD CHEMISTRY ORDERABL ES Performing Organization Address [facility] Co de Phone Number [facility] [place] [address] * Phosphorus (07/01/2023 2:56 AM EDT) Phosphorus 4.1 2.5 - 4.5 mg/dL [facility] Blood 07/01/2023 2:56 AM EDT 07/01/2023 3:22 AM EDT Narrative Resulting Agency Comment Spec In Lab Eufemia Copeland MD CHEMISTRY ORDERABL ES Performing Organization Address [facility] Co de Phone Number [facility] [place] [address] * Magnesium (07/01/2023 2:56 AM EDT) Magnesium 0.95 0.69 - 1.07 mmol/L [facility] Blood 07/01/2023 2:56 AM EDT 07/01/2023 3:22 AM EDT Narrative Resulting Agency Comment Spec In Lab Eufemia Copeland MD CHEMISTRY ORDERABL ES Performing Organization Address [facility] Co de Phone Number [facility] [place] [address] * Heparin (unfractionated) Level (06/30/2023 9:24 AM EDT) [facility] UF Heparin 0.62 IU/mL [facility] Comment: Heparin (anti-Xa) levels [...] S Performing Organization Address City/State/[facility] Co de Phone Number [facility] [place] [address] * Differential, Automated (06/30/2023 3:14 AM EDT) [facility] Neutrophil % 49.5 % [facility] Neutrophil Absolute 3.96 1.70 - 6.10 x10(3)/[facility] Lymph % 36.6 % [facility] Lymphocytes Abs 2.9 0.9 - 3.2 x10(3)/[facility] Monocyte % 8.6 % [facility] Monocyte Abs 0.7 0.3 - 0.9 x10(3)/[facility] Eos % 4.1 % [facility] Eosinophils Abs 0.3 0.0 - 0.4 x10(3)/[facility] Basophil % 0.8 % [facility] Baso Absolute 0.1 0.0 - 0.1 x10(3)/[facility] Immature Gran % 0.40 % [facility] Comment: Immature granulocytes(IG's)percentage and absolute count will include metamyelocytes, myelocytes, and promyelocytes. Blood smears from CBCs yielding IG's will be scanned manually for concordance. If this scan disagrees with the automated IG or if promyelocytes are noted, a manual differential will be performed. Immature Gran Absolute 0.03 0.00 - 0.04 x10(3)/[facility] Blood 06/30/2023 3:14 AM EDT 06/30/2023 3:23 AM EDT Narrative Resulting Agency Comment Spec In Lab Terrence Keating MD HEMATOLOGY ORDERABLE S Performing Organization Address City/State/[facility] Co de Phone Number [facility] [place] [address] * Hemogram (06/30/2023 3:14 AM EDT) White Blood Cell 8.0 4.0 - 9.5 x10(3)/[facility] Red Blood Cell 4.22 4.00 - 5.21 x10(6)/[facility] Hemoglobin 13.1 11.7 - 15.5 g/dL [facility] Hematocrit 39.5 35.7 - 45.8 % [facility] Mean Cell Volume 93.6 82.6 - 94.4 fL [facility] Mean Cell Hemoglobin 31.0 27.1 - 32.0 pg [facility] Mean Cell Hemoglobin Concentration 33.2 31.7 - 35.0 g/dL [facility] Platelet 235 145 - 357 x10(3)/[facility] RDW Standard Deviation 45.3 37.0 - 46.0 fL [facility] RDW coefficient of variation 13.3 11.5 - 14.1 % [facility] Mean Platelet Volume 11.0 7.6 - 12.9 fL [facility] NRBC% auto 0.0 % [facility] NRBC Absolute 0.000 0.000 - 0.000 x10(3)/mcL [facility] Blood 06/30/2023 3:14 AM EDT 06/30/2023 3:23 AM EDT Narrative Resulting Agency Comment Spec In Lab Terrence Keating MD HEMATOLOGY ORDERABLE S Performing Organization Address [facility] Co de Phone Number [facility] [place] [address] * Heparin (unfractionated) Level (06/30/2023 3:14 AM EDT) UF Heparin 0.70 IU/mL [facility] Comment: Heparin (anti-Xa) levels [...] MD HEMATOLOGY ORDERABLE S Performing Organization Address City/[facility]/ZIP Co de Phone Number [facility] [place] [address] * (ABNORMAL) Basic Metabolic Panel (non-fasting) (06/30/2023 3:14 AM EDT) Glucose 103 65 - 199 mg/dL [facility] Comment:Diabetes: >=200 mg/d L plus symptoms Blood Urea Nitrogen 18 8 - 18 mg/dL [facility] questions. Chloride 104 98 - 107 mmol/L [facility] Carbon Dioxide 23 22 - 31 mmol/L [facility] Anion Gap 10 5 - 15 mmol/L [facility] Calcium 9.1 8.5 - 10.5 mg/dL [facility] Est Glomerular Filtration Rate 53(L) >=60 mL/min/1. 73 m?? [facility] CHEMISTRY ORDERABL ES [facility] [place] [address] * Phosphorus (06/30/2023 3:14 AM EDT) Phosphorus 4.4 2.5 - 4.5 mg/dL [facility] Blood 06/30/2023 3:14 AM EDT 06/30/2023 3:23 AM EDT Narrative Resulting Agency Comment Spec In Lab Eufemia Copeland MD CHEMISTRY ORDERABL ES Performing Organization Address [facility] de Phone Number [facility] [place] [address] * Magnesium (06/30/2023 3:14 AM EDT) Magnesium 0.94 0.69 - 1.07 mmol/L [facility] Blood 06/30/2023 3:14 AM EDT 06/30/2023 3:23 AM EDT Narrative Resulting Agency Comment Spec In Lab Eufemia Copeland MD CHEMISTRY ORDERABL ES Performing Organization Address [facility] Phone Number [facility] [place] [address] * Heparin (unfractionated) Level (06/29/2023 8:47 PM EDT) UF Heparin 0.75 IU/mL [facility] Comment: Heparin (anti-Xa) levels [...] MD HEMATOLOGY ORDERABLE S Performing Organization Address [facility] Co de Phone Number [facility] [place] [address] * EKG 12 Lead (06/29/2023 12:55 PM EDT) Ventricular rate 53 BPM MUSE SYSTEM Atrial Rate 53 BPM MUSE SYSTEM P-R Interval 196 ms MUSE SYSTEM QRS Duration 90 ms MUSE SYSTEM Q-T Interval 564 ms MUSE SYSTEM QTC Calculated (Bezet) 529 ms MUSE SYSTEM Calculated P [place] 30 degrees MUSE SYSTEM Calculated R [place] 53 degrees MUSE SYSTEM Calculated T [place] 5 degrees MUSE SYSTEM INTERPRETATION Sinus bradycardia Marked ST abnormality, possible inferior subendocardial injury Prolonged QT Abnormal ECG When compared with ECG of 26-JUN-2023 06:04, Nonspecific T wave abnormality no longer evident in Anterolateral leads QT has lengthened Confirmed by MD Petey, Kia ([id number]) on 06/29/2023 8:34:43 PM MUSE SYSTEM 06/29/2023 12:5 5 PM EDT 06/29/2023 8:34 PM EDT Terrence Keating MD ECG ORDERABLES MUSE SYSTEM * (ABNORMAL) Heparin (unfractionated) Level (06/29/2023 11:34 AM EDT) Pathologist [facility] UF Heparin 1.41(Crit ical) IU/mL [facility] Comment: [...] Lab Ailyn Irvin MD HEMATOLOGY ORDERABLE S [facility] [place] [address] * Differential, Automated (06/29/2023 2:39 AM EDT) Neutrophil % 53.8 % [facility] Neutrophil Absolute 4.46 1.70 - 6.10 x10(3)/[facility] LAB[facility] Lymph % 33.5 % [facility] Lymphocytes Abs 2.8 0.9 - 3.2 x10(3)/[facility] Monocyte % 8.3 % [facility] Monocyte Abs 0.7 0.3 - 0.9 x10(3)/[facility] Eos % 3.5 % [facility] Eosinophils Abs 0.3 0.0 - 0.4 x10(3)/[facility] Basophil % 0.5 % [facility] Baso Absolute 0.0 0.0 - 0.1 x10(3)/[facility] Immature Gran % 0.40 % [facility] Comment: Immature granulocytes(IG's)percentage and absolute count will include metamyelocytes, myelocytes, and promyelocytes. Blood smears from CBCs yielding IG's will be scanned manually for concordance. If this scan disagrees with the automated IG or if promyelocytes are noted, a manual differential will be performed. Immature Gran Absolute 0.03 0.00 - 0.04 x10(3)/[facility] Blood 06/29/2023 2:39 AM EDT 06/29/2023 3:33 AM EDT Narrative Resulting Agency Comment Spec In Lab Terrence Keating MD HEMATOLOGY ORDERABLE S [facility] [place] [address] * Hemogram (06/29/2023 2:39 AM EDT) [facility] White Blood Cell 8.3 4.0 - 9.5 x10(3)/[facility] Red Blood Cell 4.19 4.00 - 5.21 x10(6)/[facility] Hemoglobin 13.2 11.7 - 15.5 g/dL [facility] Hematocrit 38.9 35.7 - 45.8 % [facility] Mean Cell Volume 92.8 82.6 - 94.4 fL [facility] Mean Cell Hemoglobin 31.5 27.1 - 32.0 pg [facility] Mean Cell Hemoglobin Concentration 33.9 31.7 - 35.0 g/dL [facility] Platelet 237 145 - 357 x10(3)/[facility] RDW Standard Deviation 45.3 37.0 - 46.0 [facility] LABORATORY RDW coefficient of variation 13.3 11.5 - 14.1 % [facility] Mean Platelet Volume 11.4 7.6 - 12.9 fL [facility] NRBC% auto 0.0 % [facility] NRBC Absolute 0.000 0.000 - 0.000 x10(3)/[facility] Blood 06/29/2023 2:39 AM EDT 06/29/2023 3:33 AM EDT Narrative Resulting Agency Comment Spec In Lab Terrence Keating MD HEMATOLOGY ORDERABLE S [facility] [place] [address] * (ABNORMAL) Heparin (unfractionated) Level (06/29/2023 2:39 AM EDT) Pathologist [facility] UF Heparin 1.77(Crit ical) IU/mL [facility] Comment: Specimen drawn more [...] Lab Ailyn Irvin MD HEMATOLOGY ORDERABLE S [facility] [place] [address] * (ABNORMAL) Basic Metabolic Panel (non-fasting) (06/29/2023 2:39 AM EDT) Glucose 100 65 - 199 mg/dL [facility] Comment:Diabetes: >=200 mg/d L plus symptoms Blood Urea Nitrogen 21(H) 8 - 18 mg/dL [facility] Creatinine 1.17 0.70 - 1.20 mg/dL [facility] [...] - 107 mmol/L [facility] Carbon Dioxide 22 22 - 31 mmol/L [facility] Anion Gap 11 5 - 15 mmol/L [facility] Calcium 9.1 8.5 - 10.5 mg/dL [facility] Est Glomerular Filtration Rate 55(L) >=60 mL/min/1. 73 m?? [facility] MD CHEMISTRY ORDERABL ES Performing Organization Address [facility]/ZIP Co de Phone Number [facility] [place] [address] * Phosphorus (06/29/2023 2:39 AM EDT) Phosphorus 4.0 2.5 - 4.5 mg/dL [facility] Blood 06/29/2023 2:39 AM EDT 06/29/2023 3:33 AM EDT Narrative Resulting Agency Comment Spec In Lab Eufemia Copeland MD CHEMISTRY ORDERABL ES Performing Organization Address [facility]/ZIP Co de Phone Number [facility] [place] [address] * Magnesium (06/29/2023 2:39 AM EDT) Magnesium 0.92 0.69 - 1.07 mmol/L [facility] Blood 06/29/2023 2:39 AM EDT 06/29/2023 3:33 AM EDT Narrative Resulting Agency Comment Spec In Lab Eufemia Copeland MD CHEMISTRY ORDERABL ES [facility] [place] [address] * US Abdomen Limited (06/28/2023 12:22 PM EDT) WORKSTATION ID [id number] [facility] Anatomical Region Laterality Modality Abdomen Ultrasound 06/28/2023 [...] who have questions, please contact the health rn patient care that requested your imaging first. ?Sigrid Owens, [facility] Care Navigator Electronically Signed Final Report ?? 06/28/2023 02:08 pm Narrative 06/28/2023 2:08 PM EDT Abdominal ? (Signed Final 06/28/2023 02:08 pm) PATIENT INFO: ID #: ? [id number] ?: ??[birth year] (53 yrs)(F) Name: ? LOIDA ?Visit Date: 06/28/2023 12:20 pm ? ROHAN PERFORMED BY: Attending: ?Graciela JOHN, Sigrid Munoz Resident: ? Karo JOHN, Rafaela Performed By: ? Rick , ??Deena Referred By: ?AILYN IRVIN Location: ? [facility] SERVICE(S) PROVIDED: UABDLIM - Abdominal Limited Survey Single ? [id number] Organ or Quadrant - [id number] INDICATIONS: RUQ pain, R/o Gall bladder colic, [...] 06/28/2023 02:08 pm) PATIENT INFO: ID #: [id number] : [birth year] (53 yrs)(F) Name: LOIDA Visit Date: 06/28/2023 12:20 pm ROHAN PERFORMED BY: Attending: Sigrid Owens MD Resident: Rafaela Huddleston MD Performed By: Deena Cabrera RDMS Referred By: AILYN IRVIN Location: [facility] SERVICE(S) PROVIDED: UABDLIM - Abdominal Limited Survey Single [id number] Organ or Quadrant - [id number] INDICATIONS: RUQ pain, R/o Gall bladder colic, [...] PM Electronically signed by: Sigrid Owens MD, [facility] ([phone]), at 06/28/2023 2:02 PM Thank you for letting us participate in the care of this patient. If you are a health care provider and have any questions regarding this report, please contact the number above. For patients who have questions, please contact the health rn patient care that requested your imaging first. Sigrid Owens, E Care Navigator Electronically Signed Final Report 06/28/2023 02:08 pm Ailyn Irvin MD IMG US GEN ORDERABLE S * Duplex Study Visceral Arteries, Comp (06/28/2023 10:19 AM EDT) VB Text Report Department: Vascular Surgery Lab Patient: [id number] (ROHAN, LOIDA) CPT: 27545 Referring Physician: HEIDY SULLIVAN ?? Indications: abdominal pain, ? patency/stenosi s Findings: Unilateral ? Waveform ? PSV cm/s ??EDV cm/s ??Patent ?? Dary Visceral Aorta ? 80 ?16 ? Celiac Artery, Proximal ??Rusk-Biphasic ? 119 ?26 ? Celiac Artery, Mid ? Rusk-Biphasic ? 115 ?21 ? Celiac Artery, Distal ? No Vis ?? Sup Mes Artery Proximal ??Biphasic ?427 ?91 ? Sup Mes Artery Middle ?Rusk-Biphasic ? 100 ?17 ? Sup Mes Artery Distal ?Rusk-Biphasic ?64 ?15 ? Hepatic Artery ?No Vis [...] * Differential, Automated (06/28/2023 1:52 AM EDT) Neutrophil % 55.3 % [facility] Neutrophil Absolute 4.46 1.70 - 6.10 x10(3)/[facility] Lymph % 30.6 % [facility] Lymphocytes Abs 2.5 0.9 - 3.2 x10(3)/[facility] Monocyte % 8.8 % [facility] Monocyte Abs 0.7 0.3 - 0.9 x10(3)/[facility] Eos % 4.6 % [facility] Eosinophils Abs 0.4 0.0 - 0.4 x10(3)/[facility] Basophil % 0.5 % [facility] Baso Absolute 0.0 0.0 - 0.1 x10(3)/[facility] Immature Gran % 0.20 % [facility] Comment: Immature granulocytes(IG's)percentage and absolute count will include metamyelocytes, myelocytes, and promyelocytes. Blood smears from CBCs yielding IG's will be scanned manually for concordance. If this scan disagrees with the automated IG or if promyelocytes are noted, a manual differential will be performed. Immature Gran Absolute 0.02 0.00 - 0.04 x10(3)/[facility] Blood 06/28/2023 1:52 AM EDT 06/28/2023 2:05 AM EDT Narrative Resulting Agency Comment Spec In Lab Terrence Keating MD HEMATOLOGY ORDERABLE S [facility] [place] [address] * Hemogram (06/28/2023 1:52 AM EDT) White Blood Cell 8.1 4.0 - 9.5 x10(3)/[facility] Red Blood Cell 4.30 4.00 - 5.21 x10(6)/[facility] Hemoglobin 13.4 11.7 - 15.5 g/dL [facility] Hematocrit 40.6 35.7 - 45.8 % [facility] Mean Cell Volume 94.4 82.6 - 94.4 fL [facility] Mean Cell Hemoglobin 31.2 27.1 - 32.0 pg [facility] Mean Cell Hemoglobin Concentration 33.0 31.7 - 35.0 g/dL [facility] Platelet 238 145 - 357 x10(3)/[facility] RDW Standard Deviation 45.7 37.0 - 46.0 fL [facility] RDW coefficient of variation 13.2 11.5 - 14.1 % [facility] Mean Platelet Volume 10.8 7.6 - 12.9 fL [facility] NRBC% auto 0.0 % [facility] NRBC Absolute 0.000 0.000 - 0.000 x10(3)/mcL [facility] Blood 06/28/2023 1:52 AM EDT 06/28/2023 2:05 AM EDT Narrative Resulting Agency Comment Spec In Lab Terrence Keating MD HEMATOLOGY ORDERABLE S [facility] [place] [address] * (ABNORMAL) Basic Metabolic Panel (non-fasting) (06/28/2023 1:52 AM EDT) Glucose 101 65 - 199 mg/dL [facility] Comment:Diabetes: >=200 mg/d L plus symptoms Blood Urea Nitrogen 24(H) 8 - 18 mg/dL [facility] Creatinine 1.21(H) 0.70 - 1.20 mg/dL [facility] [...] - 107 mmol/L [facility] Carbon Dioxide 21(L) 22 - 31 mmol/L [facility] Anion Gap 12 5 - 15 mmol/L [facility] Calcium 9.0 8.5 - 10.5 mg/dL [facility] Est Glomerular Filtration Rate 53(L) >=60 mL/min/1. 73 m?? [facility] MD CHEMISTRY ORDERABL ES Performing Organization Address City/[facility] Co de Phone Number [facility] [place] [address] * Phosphorus (06/28/2023 1:52 AM EDT) Phosphorus 4.5 2.5 - 4.5 mg/dL [facility] Blood 06/28/2023 1:52 AM EDT 06/28/2023 2:05 AM EDT Narrative Resulting Agency Comment Spec In Lab Eufemia Copeland MD CHEMISTRY ORDERABL ES Performing Organization Address [facility] Co de Phone Number [facility] [place] [address] * Magnesium (06/28/2023 1:52 AM EDT) Magnesium 0.93 0.69 - 1.07 mmol/L [facility] Blood 06/28/2023 1:52 AM EDT 06/28/2023 2:05 AM EDT Narrative Resulting Agency Comment Spec In Lab Eufemia Copeland MD CHEMISTRY ORDERABL ES Performing Organization Address [facility] Co de Phone Number [facility] [place] [address] * (ABNORMAL) Basic Metabolic Panel (non-fasting) (06/27/2023 8:06 PM EDT) Glucose 94 65 - 199 mg/dL [facility] Comment:Diabetes: >=200 mg/d L plus symptoms Blood Urea Nitrogen 24(H) 8 - 18 mg/dL [facility] Creatinine 1.28(H) 0.70 - 1.20 mg/dL [facility] [...] questions. Chloride 106 98 - 107 mmol/L [facility] Carbon Dioxide 24 22 - 31 mmol/L [facility] Anion Gap 11 5 - 15 mmol/L [facility] Calcium 9.3 8.5 - 10.5 mg/dL [facility] Est Glomerular Filtration Rate 50(L) >=60 mL/min/1. 73 m?? [facility] [...] In Lab Ailyn Irvin MD CHEMISTRY ORDERABLES [facility] [place] [address] * (ABNORMAL) Hepatic Function Panel (06/27/2023 4:34 AM EDT) Pathologist Kavita Protein, Total 6.4 6.1 - 8.0 g/dL [facility] Albumin 3.8 3.2 - 5.2 g/dL [facility] Aspartate Aminotransferase 21 0 - 30 unit/L [facility] Alanine Aminotransferase 22 0 - 30 unit/L [facility] Alkaline Phosphatase 56 35 - 105 unit/L [facility] Bilirubin, Total <0.2(L) 0.2 - 1.3 mg/dL [facility] Bilirubin, Direct <0.1 0.0 - 0.3 mg/dL [facility] Blood Venous Draw / Unknown 06/27/2023 4:34 AM EDT 06/27/2023 4:53 AM EDT Narrative Resulting Agency Comment Spec In Lab Ailyn Irvin MD CHEMISTRY ORDERABLES Performing Organization Address City/State/[facility] Co de Phone Number [facility] [place] [address] * Differential, Automated (06/27/2023 4:34 AM EDT) [facility] Neutrophil % 52.7 % [facility] Neutrophil Absolute 4.01 1.70 - 6.10 x10(3)/[facility] Lymph % 33.8 % [facility] Lymphocytes Abs 2.6 0.9 - 3.2 x10(3)/[facility] Monocyte % 8.8 % [facility] Monocyte Abs 0.7 0.3 - 0.9 x10(3)/[facility] Eos % 3.8 % [facility] Eosinophils Abs 0.3 0.0 - 0.4 x10(3)/[facility] Basophil % 0.5 % [facility] Baso Absolute 0.0 0.0 - 0.1 x10(3)/[facility] Immature Gran % 0.40 % [facility] Comment: Immature granulocytes(IG's)percentage and absolute count will include metamyelocytes, myelocytes, and promyelocytes. Blood smears from CBCs yielding IG's will be scanned manually for concordance. If this scan disagrees with the automated IG or if promyelocytes are noted, a manual differential will be performed. Immature Gran Absolute 0.03 0.00 - 0.04 x10(3)/[facility] Blood 06/27/2023 4:34 AM EDT 06/27/2023 4:51 AM EDT Narrative Resulting Agency Comment Spec In Lab Terrence Keating MD HEMATOLOGY ORDERABLE S [facility] [place] [address] * Hemogram (06/27/2023 4:34 AM EDT) White Blood Cell 7.6 4.0 - 9.5 x10(3)/[facility] Red Blood Cell 4.15 4.00 - 5.21 x10(6)/[facility] Hemoglobin 12.9 11.7 - 15.5 g/dL [facility] Hematocrit 39.0 35.7 - 45.8 % [facility] Mean Cell Volume 94.0 82.6 - 94.4 fL [facility] Mean Cell Hemoglobin 31.1 27.1 - 32.0 pg [facility] Mean Cell Hemoglobin Concentration 33.1 31.7 - 35.0 g/dL [facility] Platelet 245 145 - 357 x10(3)/[facility] RDW Standard Deviation 45.2 37.0 - 46.0 fL [facility] RDW coefficient of variation 13.2 11.5 - 14.1 % [facility] Mean Platelet Volume 11.2 7.6 - 12.9 fL [facility] NRBC% auto 0.0 % [facility] NRBC Absolute 0.000 0.000 - 0.000 x10(3)/mcL [facility] Blood 06/27/2023 4:34 AM EDT 06/27/2023 4:51 AM EDT Narrative Resulting Agency Comment Spec In Lab Terrence Keating MD HEMATOLOGY ORDERABLE S [facility] [place] [address] * (ABNORMAL) Basic Metabolic Panel (non-fasting) (06/27/2023 4:34 AM EDT) Glucose 99 65 - 199 mg/dL [facility] Comment:Diabetes: >=200 mg/d L plus symptoms Blood Urea Nitrogen 26(H) 8 - 18 mg/dL [facility] - 107 mmol/L [facility] Carbon Dioxide 22 22 - 31 mmol/L [facility] Anion Gap 11 5 - 15 mmol/L [facility] Calcium 9.1 8.5 - 10.5 mg/dL [facility] Est Glomerular Filtration Rate 53(L) >=60 mL/min/1. 73 m?? [facility] MD CHEMISTRY ORDERABL ES Performing Organization Address City/[facility]/ZIP Co de Phone Number [facility] [place] [address] * (ABNORMAL) Phosphorus (06/27/2023 4:34 AM EDT) Phosphorus 4.7(H) 2.5 - 4.5 mg/dL [facility] Blood 06/27/2023 4:34 AM EDT 06/27/2023 4:51 AM EDT Narrative Resulting Agency Comment Spec In Lab Eufemia Copeland MD CHEMISTRY ORDERABL ES Performing Organization Address [facility] Co de Phone Number [facility] [place] [address] * Magnesium (06/27/2023 4:34 AM EDT) Magnesium 0.90 0.69 - 1.07 mmol/L [facility] Blood 06/27/2023 4:34 AM EDT 06/27/2023 4:51 AM EDT Narrative Resulting Agency Comment Spec In Lab Eufemia Copeland MD CHEMISTRY ORDERABL ES Performing Organization Address [facility] Co de Phone Number [facility] [place] [address] * (ABNORMAL) Basic Metabolic Panel (non-fasting) (06/26/2023 4:58 PM EDT) Glucose 106 65 - 199 mg/dL [facility] Comment:Diabetes: >=200 mg/d L plus symptoms Blood Urea Nitrogen 24(H) 8 - 18 mg/dL [facility] Creatinine 1.23(H) 0.70 - 1.20 mg/dL [facility] [...] questions. Chloride 104 98 - 107 mmol/L [facility] Carbon Dioxide 21(L) 22 - 31 mmol/L [facility] Anion Gap 13 5 - 15 mmol/L [facility] Calcium 9.1 8.5 - 10.5 mg/dL [facility] Est Glomerular Filtration Rate 52(L) >=60 mL/min/1. 73 m?? [facility] [...] In Lab Ailyn Irvin MD CHEMISTRY ORDERABLES [facility] [place] [address] * Urinalysis Microscopic Exam (06/26/2023 11:09 AM EDT) RBC, Urine 0 0 - 4 /HPF [facility] WBC, Urine 3 0 - 5 /HPF [facility] Squamous Epithelial Cells Raw Data, Urine 1 <=4 /HPF [facility] Hyaline Casts, Urine 1 0 - 2 /LPF [facility] Clean Catch Urine 06/26/2023 11:09 AM EDT 06/26/2023 5:45 PM EDT Narrative Resulting Agency Comment Spec In Lab Ailyn Irvin MD URINE ORDERABLES [facility] [place] [address] * (ABNORMAL) Urinalysis with reflex Culture (06/26/2023 11:09 AM EDT) Glucose, Urine Dipstick Negative Negative mg/dL [facility] Protein, Urine Dipstick Negative Negative mg/dL [facility] Bilirubin, Urine Dipstick Negative Negative mg/dL [facility] Comment: Clinical correlation required for positive Urine Bilirubin results as false positive may occur with some drugs and drug related products. If a false positive is suspected a serum total bilirubin should be considered if clinically indicated. Urobilinogen, Urine Dipstick Normal Normal mg/dL [facility] pH, Urn (dipstick) 6.0 5.0 - 8.0 [facility] Blood, Urine Dipstick Negative Negative mg/dL [facility] Ketone, Urine Dipstick Negative Negative mg/dL [facility] Nitrite, Urine Dipstick Negative Negative [facility] Leukocytes, Urine Dipstick Trace(A) Negative [facility] Appearance, Urine Dipstick Clear Clear [facility] Specific [place] Urine Automated 1.013 1.005 - 1.030 [facility] Color, Urine Dipstick Yellow Yellow [facility] Reflex to Culture No [facility] Clean Catch Urine 06/26/2023 11:09 AM EDT 06/26/2023 5:45 PM EDT Narrative Resulting Agency Comment Spec In Lab Ailyn Irvin MD URINE ORDERABLES [facility] [place] [address] * EKG 12 Lead (06/26/2023 6:04 AM EDT) Ventricular rate 46 BPM MUSE SYSTEM Atrial Rate 46 BPM MUSE SYSTEM P-R Interval 204 ms MUSE SYSTEM QRS Duration 90 ms MUSE SYSTEM Q-T Interval 466 ms MUSE SYSTEM QTC Calculated (Bezet) 407 ms MUSE SYSTEM Calculated P [place] 38 degrees MUSE SYSTEM Calculated R [place] 48 degrees MUSE SYSTEM Calculated T [place] 13 degrees MUSE SYSTEM INTERPRETATION Sinus bradycardia Nonspecific ST and T wave abnormality Abnormal ECG When compared with ECG of 23-JUN-2023 09:54, No significant change was found Confirmed by MD Dalia, Willy Huerta ([id number]) on 06/29/2023 6:09:20 AM MUSE SYSTEM 06/26/2023 6:04 AM EDT 06/29/2023 6:09 AM EDT Eufemia Copeland MD ECG ORDERABLES MUSE SYSTEM * Differential, Automated (06/26/2023 4:06 AM EDT) Neutrophil % 55.3 % [facility] Neutrophil Absolute 4.63 1.70 - 6.10 x10(3)/[facility] Lymph % 32.6 % [facility] Lymphocytes Abs 2.7 0.9 - 3.2 x10(3)/[facility] Monocyte % 8.2 % [facility] Monocyte Abs 0.7 0.3 - 0.9 x10(3)/[facility] Eos % 3.2 % [facility] Eosinophils Abs 0.3 0.0 - 0.4 x10(3)/[facility] Basophil % 0.5 % [facility] Baso Absolute 0.0 0.0 - 0.1 x10(3)/[facility] Immature Gran % 0.20 % [facility] Comment: Immature granulocytes(IG's)percentage and absolute count will include metamyelocytes, myelocytes, and promyelocytes. Blood smears from CBCs yielding IG's will be scanned manually for concordance. If this scan disagrees with the automated IG or if promyelocytes are noted, a manual differential will be performed. Immature Gran Absolute 0.02 0.00 - 0.04 x10(3)/[facility] Blood 06/26/2023 4:06 AM EDT 06/26/2023 4:18 AM EDT Narrative Resulting Agency Comment Spec In Lab Terrence Keating MD HEMATOLOGY ORDERABLE S Performing Organization Address City/State/[facility] Co de Phone Number [facility] [place] [address] * (ABNORMAL) Hemogram (06/26/2023 4:06 AM EDT) White Blood Cell 8.4 4.0 - 9.5 x10(3)/[facility] LABOR[facility]ORY Red Blood Cell 4.52 4.00 - 5.21 x10(6)/[facility] Hemoglobin 14.0 11.7 - 15.5 g/dL [facility] Hematocrit 43.6 35.7 - 45.8 % [facility] Mean Cell Volume 96.5(H) 82.6 - 94.4 fL [facility] Mean Cell Hemoglobin 31.0 27.1 - 32.0 pg [facility] Mean Cell Hemoglobin Concentration 32.1 31.7 - 35.0 g/dL [facility] Platelet 258 145 - 357 x10(3)/[facility] RDW Standard Deviation 46.7(H) 37.0 - 46.0 fL [facility] RDW coefficient of variation 13.2 11.5 - 14.1 % [facility] Mean Platelet Volume 11.1 7.6 - 12.9 fL [facility] NRBC% auto 0.0 % [facility] NRBC Absolute 0.000 0.000 - 0.000 x10(3)/mc L [facility] Blood 06/26/2023 4:06 AM EDT 06/26/2023 4:18 AM EDT Narrative Resulting Agency Comment Spec In Lab Terrence Keating MD HEMATOLOGY ORDERABLE S [facility] [place] [address] * (ABNORMAL) Basic Metabolic Panel (non-fasting) (06/26/2023 4:06 AM EDT) Glucose 100 65 - 199 mg/dL [facility] Comment:Diabetes: >=200 mg/d L plus symptoms Blood Urea Nitrogen 25(H) 8 - 18 mg/dL [facility] Creatinine 1.24(H) 0.70 - 1.20 mg/dL [facility] Sodium 135 135 - 145 mmol/L [facility] Potassium 4.2 3.5 - 5.0 mmol/L [facility] Comment: Please note: ??Patients with WBC >100,000 may have falsely elevated Potassium levels. ??For accurate Potassium quantification in these patients send serum separator tube (gold top) for subsequent determinations. ??Contact the Clinical Chemistry Laboratory if there are any questions. Chloride 104 98 - 107 mmol/L [facility] Carbon Dioxide 19(L) 22 - 31 mmol/L [facility] Anion Gap 12 5 - 15 mmol/L [facility] Calcium 9.6 8.5 - 10.5 mg/dL [facility] Est Glomerular Filtration Rate 52(L) >=60 mL/min/1. 73 m?? [facility] [...] MD CHEMISTRY ORDERABL ES Performing Organization Address [facility] Co de Phone Number [facility] [place] [address] * Phosphorus (06/26/2023 4:06 AM EDT) Phosphorus 4.3 2.5 - 4.5 mg/dL [facility] Blood 06/26/2023 4:06 AM EDT 06/26/2023 4:18 AM EDT Narrative Resulting Agency Comment Spec In Lab Eufemia Copeland MD CHEMISTRY ORDERABL ES Performing Organization Address [facility] Co de Phone Number [facility] [place] [address] * Magnesium (06/26/2023 4:06 AM EDT) Magnesium 0.96 0.69 - 1.07 mmol/L [facility] Blood 06/26/2023 4:06 AM EDT 06/26/2023 4:18 AM EDT Narrative Resulting Agency Comment Spec In Lab Eufemia Copeland MD CHEMISTRY ORDERABL ES Performing Organization Address [facility] Co [place] [address] * Differential, Automated (06/25/2023 1:50 AM EDT) Pathologist [facility] Neutrophil % 56.2 % [facility] Neutrophil Absolute 4.06 1.70 - 6.10 x10(3)/[facility] Lymph % 30.5 % [facility] Lymphocytes Abs 2.2 0.9 - 3.2 x10(3)/[facility] Monocyte % 8.7 % [facility] Monocyte Abs 0.6 0.3 - 0.9 x10(3)/[facility] Eos % 3.9 % [facility] Eosinophils Abs 0.3 0.0 - 0.4 x10(3)/[facility] Basophil % 0.6 % [facility] Baso Absolute 0.0 0.0 - 0.1 x10(3)/[facility] Immature Gran % 0.10 % [facility] Comment: Immature granulocytes(IG's)percentage and absolute count will include metamyelocytes, myelocytes, and promyelocytes. Blood smears from CBCs yielding IG's will be scanned manually for concordance. If this scan disagrees with the automated IG or if promyelocytes are noted, a manual differential will be performed. Immature Gran Absolute 0.01 0.00 - 0.04 x10(3)/[facility] Blood 06/25/2023 1:50 AM EDT 06/25/2023 2:16 AM EDT Narrative Resulting Agency Comment Spec In Lab Terrence Keating [place] [address] * Hemogram (06/25/2023 1:50 AM EDT) Pathologist [facility] White Blood Cell 7.2 4.0 - 9.5 x10(3)/[facility] Red Blood Cell 4.57 4.00 - 5.21 x10(6)/[facility] Hemoglobin 14.4 11.7 - 15.5 g/dL [facility] Hematocrit 42.9 35.7 - 45.8 % [facility] Mean Cell Volume 93.9 82.6 - 94.4 fL [facility] Mean Cell Hemoglobin 31.5 27.1 - 32.0 pg [facility] Mean Cell Hemoglobin Concentration 33.6 31.7 - 35.0 g/dL [facility] Platelet 241 145 - 357 x10(3)/[facility] RDW Standard Deviation 44.7 37.0 - 46.0 [facility] LAB[facility]ORY RDW coefficient of variation 13.2 11.5 - 14.1 % [facility] Mean Platelet Volume 11.5 7.6 - 12.9 [facility] LAB[facility]ORY NRBC% auto 0.0 % [facility] NRBC Absolute 0.000 0.000 - 0.000 x10(3)/[facility] LABORATORY Blood 06/25/2023 1:50 AM EDT 06/25/2023 2:16 AM EDT Narrative Resulting Agency Comment Spec In Lab Terrence Keating MD HEMATOLOGY ORDERABLE S [facility] [place] [address] * (ABNORMAL) Basic Metabolic Panel (non-fasting) (06/25/2023 1:50 AM EDT) Glucose 99 65 - 199 mg/dL [facility] Comment:Diabetes: >=200 mg/d L plus symptoms Blood Urea Nitrogen 20(H) 8 - 18 mg/dL [facility] Creatinine 1.59(H) 0.70 - 1.20 mg/dL [facility] [...] - 107 mmol/L [facility] Carbon Dioxide 25 22 - 31 mmol/L [facility] LABORATORY Anion Gap 12 5 - 15 mmol/L [facility] Calcium 9.4 8.5 - 10.5 mg/dL [facility] Est Glomerular Filtration Rate 38(L) >=60 mL/min/1. 73 m?? [facility] [...] CHEMISTRY ORDERABL ES [facility] [place] [address] * Phosphorus (06/25/2023 1:50 AM EDT) Phosphorus 4.4 2.5 - 4.5 mg/dL [facility] Blood 06/25/2023 1:50 AM EDT 06/25/2023 2:16 AM EDT Narrative Resulting Agency Comment Spec In Lab Eufemia Copeland MD CHEMISTRY ORDERABL ES Performing Organization Address City/[facility]/ZIP Co de Phone Number [facility] [place] [address] * Magnesium (06/25/2023 1:50 AM EDT) [facility] Magnesium 0.99 0.69 - 1.07 mmol/L [facility] Blood 06/25/2023 1:50 AM EDT 06/25/2023 2:16 AM EDT Narrative Resulting Agency Comment Spec In Lab Eufemia Copeland MD CHEMISTRY ORDERABL ES Performing Organization Address [facility] Co de Phone Number [facility] [place] [address] * (ABNORMAL) pro-Brain Natriuretic Peptide (06/24/2023 3:38 AM EDT) [facility] NT-proBNP 1,239(H) <=124 pg/mL [facility] Blood Venous Draw / Unknown 06/24/2023 3:38 AM EDT 06/24/2023 3:49 AM EDT Narrative Resulting Agency Comment Spec In Lab Ailyn Irvin MD CHEMISTRY ORDERABLES Performing Organization Address [facility]/ZIP Co de Phone Number [facility] [place] [address] * Differential, Automated (06/24/2023 3:38 AM EDT) [facility] Neutrophil % 51.6 % [facility] Neutrophil Absolute 3.54 1.70 - 6.10 x10(3)/[facility] LABORATORY Lymph % 36.0 % [facility] Lymphocytes Abs 2.5 0.9 - 3.2 x10(3)/[facility] LABORATORY Monocyte % 7.8 % [facility] Monocyte Abs 0.5 0.3 - 0.9 x10(3)/[facility] LABORATORY Eos % 3.6 % [facility] Eosinophils Abs 0.2 0.0 - 0.4 x10(3)/[facility] LABORATORY Basophil % 0.7 % [facility] Baso Absolute 0.0 0.0 - 0.1 x10(3)/[facility] LABORATORY Immature Gran % 0.30 % [facility] Comment: Immature granulocytes(IG's)percentage and absolute count will include metamyelocytes, myelocytes, and promyelocytes. Blood smears from CBCs yielding IG's will be scanned manually for concordance. If this scan disagrees with the automated IG or if promyelocytes are noted, a manual differential will be performed. Immature Gran Absolute 0.02 0.00 - 0.04 x10(3)/[facility] LABORATORY Blood 06/24/2023 3:38 AM EDT 06/24/2023 3:49 AM EDT Narrative Resulting Agency Comment Spec In Lab Terrence Keating MD HEMATOLOGY ORDERABLE S Performing Organization Address City/State/[facility] Co de Phone Number [facility] [place] [address] * Hemogram (06/24/2023 3:38 AM EDT) White Blood Cell 6.9 4.0 - 9.5 x10(3)/[facility] LABORATORY Red Blood Cell 4.36 4.00 - 5.21 x10(6)/[facility] LABORATORY Hemoglobin 13.6 11.7 - 15.5 g/dL [facility] Hematocrit 40.7 35.7 - 45.8 % [facility] Mean Cell Volume 93.3 82.6 - 94.4 fL [facility] Mean Cell Hemoglobin 31.2 27.1 - 32.0 pg [facility] Mean Cell Hemoglobin Concentration 33.4 31.7 - 35.0 g/dL [facility] Platelet 220 145 - 357 x10(3)/[facility] LABORATORY RDW Standard Deviation 44.5 37.0 - 46.0 [facility] LABORATORY RDW coefficient of variation 13.0 11.5 - 14.1 % [facility] Mean Platelet Volume 10.8 7.6 - 12.9 [facility] LABORATORY NRBC% auto 0.0 % [facility] NRBC Absolute 0.000 0.000 - 0.000 x10(3)/mcL [facility] Blood 06/24/2023 3:38 AM EDT 06/24/2023 3:49 AM EDT Narrative Resulting Agency Comment Spec In Lab Terrence Keating MD HEMATOLOGY ORDERABLE S Performing Organization Address [facility] Co de Phone Number [facility] [place] [address] * Heparin (unfractionated) Level (06/24/2023 3:38 AM EDT) UF Heparin 0.44 IU/mL [facility] Comment: Heparin (anti-Xa) levels [...] MD HEMATOLOGY ORDERABLE S Performing Organization Address City/[facility]/ZIP Co de Phone Number [facility] [place] [address] * (ABNORMAL) Basic Metabolic Panel (non-fasting) (06/24/2023 3:38 AM EDT) Glucose 96 65 - 199 mg/dL [facility] Comment:Diabetes: >=200 mg/d L plus symptoms Blood Urea Nitrogen 20(H) 8 - 18 mg/dL [facility] questions. Chloride 104 98 - 107 mmol/L [facility] Carbon Dioxide 21(L) 22 - 31 mmol/L [facility] Anion Gap 13 5 - 15 mmol/L [facility] Calcium 9.1 8.5 - 10.5 mg/dL [facility] Est Glomerular Filtration Rate 57(L) >=60 mL/min/1. 73 m?? [facility] CHEMISTRY ORDERABL ES [facility] [place] [address] * Phosphorus (06/24/2023 3:38 AM EDT) Phosphorus 4.1 2.5 - 4.5 mg/dL [facility] Blood 06/24/2023 3:38 AM EDT 06/24/2023 3:49 AM EDT Narrative Resulting Agency Comment Spec In Lab Eufemia Copeland MD CHEMISTRY ORDERABL ES Performing Organization Address [facility] Co de Phone Number [facility] [place] [address] * Magnesium (06/24/2023 3:38 AM EDT) Magnesium 0.96 0.69 - 1.07 mmol/L [facility] Blood 06/24/2023 3:38 AM EDT 06/24/2023 3:49 AM EDT Narrative Resulting Agency Comment Spec In Lab Eufemia Copeland MD CHEMISTRY ORDERABL ES Performing Organization Address [facility] Co de Phone Number [facility] [place] [address] * Heparin (unfractionated) Level (06/23/2023 9:24 PM EDT) UF Heparin 0.51 IU/mL [facility] Comment: Heparin (anti-Xa) levels [...] Lab Terrence Keating MD HEMATOLOGY ORDERABLE S [facility] [place] [address] * Duplex Study Visceral Arteries, Comp (06/23/2023 3:36 PM EDT) VB Text Report Department: Vascular Surgery Lab Patient: [id number] (LOIDA ROQUE) CPT: 54700 Referring Physician: AILYN IRVIN ?? Phone: Indications: [...] Irvin MD VASCULAR ORDERABLES Performing Organization Address [facility] de Phone Number [id number] * Heparin (unfractionated) Level (06/23/2023 3:01 PM EDT) UF Heparin 0.90 IU/mL [facility] Comment: Heparin (anti-Xa) levels [...] MD HEMATOLOGY ORDERABLE S Performing Organization Address [facility] Co de Phone Number [facility] [place] [address] * EKG 12 Lead (06/23/2023 9:54 AM EDT) Ventricular rate 48 BPM MUSE SYSTEM Atrial Rate 48 BPM MUSE SYSTEM P-R Interval 192 ms MUSE SYSTEM QRS Duration 92 ms MUSE SYSTEM Q-T Interval 462 ms MUSE SYSTEM QTC Calculated (Bezet) 412 ms MUSE SYSTEM Calculated P [place] 21 degrees MUSE SYSTEM Calculated R [place] 20 degrees MUSE SYSTEM Calculated T [place] 16 degrees MUSE SYSTEM INTERPRETATION Sinus bradycardia [...] * Differential, Automated (06/23/2023 4:12 AM EDT) Neutrophil % 52.8 % [facility] Neutrophil Absolute 4.30 1.70 - 6.10 x10(3)/[facility] LABORATORY Lymph % 33.9 % [facility] Lymphocytes Abs 2.8 0.9 - 3.2 x10(3)/[facility] LABOR[facility] Monocyte % 8.3 % [facility] Monocyte Abs 0.7 0.3 - 0.9 x10(3)/[facility] LABORATORY Eos % 3.9 % [facility] Eosinophils Abs 0.3 0.0 - 0.4 x10(3)/[facility] LABORATORY Basophil % 0.7 % [facility] Baso Absolute 0.1 0.0 - 0.1 x10(3)/[facility] LABORATORY Immature Gran % 0.40 % [facility] Comment: Immature granulocytes(IG's)percentage and absolute count will include metamyelocytes, myelocytes, and promyelocytes. Blood smears from CBCs yielding IG's will be scanned manually for concordance. If this scan disagrees with the automated IG or if promyelocytes are noted, a manual differential will be performed. Immature Gran Absolute 0.03 0.00 - 0.04 x10(3)/[facility] LABORAT[facility] Blood 06/23/2023 4:12 AM EDT 06/23/2023 4:38 AM EDT Narrative Resulting Agency Comment Spec In Lab Terrence Keating MD HEMATOLOGY ORDERABLE S [facility] [place] [address] * Hemogram (06/23/2023 4:12 AM EDT) White Blood Cell 8.2 4.0 - 9.5 x10(3)/[facility] LABORATORY Red Blood Cell 4.59 4.00 - 5.21 x10(6)/[facility] LAB[facility] Hemoglobin 14.3 11.7 - 15.5 g/dL [facility] Hematocrit 43.1 35.7 - 45.8 % [facility] Mean Cell Volume 93.9 82.6 - 94.4 [facility] LABORATORY Mean Cell Hemoglobin 31.2 27.1 - 32.0 pg [facility] Mean Cell Hemoglobin Concentration 33.2 31.7 - 35.0 g/dL [facility] Platelet 233 145 - 357 x10(3)/[facility] LABORATORY RDW Standard Deviation 44.2 37.0 - 46.0 [facility] LABORATORY RDW coefficient of variation 13.0 11.5 - 14.1 % [facility] Mean Platelet Volume 11.3 7.6 - 12.9 [facility] LABORATORY NRBC% auto 0.0 % [facility] NRBC Absolute 0.000 0.000 - 0.000 x10(3)/[facility] Blood 06/23/2023 4:12 AM EDT 06/23/2023 4:38 AM EDT Narrative Resulting Agency Comment Spec In Lab Terrence Keating MD HEMATOLOGY ORDERABLE S Performing Organization Address [facility] Co de Phone Number [facility] [place] [address] * (ABNORMAL) Heparin (unfractionated) Level (06/23/2023 4:12 AM EDT) UF Heparin 1.95(Crit ical) IU/mL [facility] Comment: [...] MD HEMATOLOGY ORDERABLE S Performing Organization Address [facility]/ZIP Co de Phone Number [facility] [place] [address] * (ABNORMAL) Basic Metabolic Panel (non-fasting) (06/23/2023 4:12 AM EDT) Glucose 87 65 - 199 mg/dL [facility] Comment:Diabetes: >=200 mg/d L plus symptoms Blood Urea Nitrogen 23(H) 8 - 18 mg/dL [facility] Creatinine 1.08 0.70 - 1.20 mg/dL [facility] [...] - 107 mmol/L [facility] Carbon Dioxide 22 22 - 31 mmol/L [facility] Anion Gap 12 5 - 15 mmol/L [facility] Calcium 9.3 8.5 - 10.5 mg/dL [facility] Est Glomerular Filtration Rate 61 >=60 mL/min/1. 73 m?? [facility] [...] CHEMISTRY ORDERABL ES [facility] [place] [address] * Phosphorus (06/23/2023 4:12 AM EDT) Phosphorus 4.5 2.5 - 4.5 mg/dL [facility] Blood 06/23/2023 4:12 AM EDT 06/23/2023 4:38 AM EDT Narrative Resulting Agency Comment Spec In Lab Eufemia Copeland MD CHEMISTRY ORDERABL ES Performing Organization Address [facility] Co de Phone Number [facility] [place] [address] * Magnesium (06/23/2023 4:12 AM EDT) Magnesium 1.03 0.69 - 1.07 mmol/L [facility] Blood 06/23/2023 4:12 AM EDT 06/23/2023 4:38 AM EDT Narrative Resulting Agency Comment Spec In Lab Eufemia Copeland MD CHEMISTRY ORDERABL ES Performing Organization Address [facility] de Phone Number [facility] [place] [address] * ECHO LMTD W CONTRAST W LMTD SPEC DOPP COLOR DOPP (06/22/2023 4:25 PM EDT) Anatomical Region Laterality Modality Cardiac Other 06/22/2023 2:49 PM EDT Narrative 06/22/2023 4:42 PM EDT [address] [place] [address] ? Echocardiogram Report Name: LOIDA ROQUE ?Study Date: 06/22/2023 02:49 PM ?Patient Location: [id number] A ??HR: 57 : 1970 ?Height: 162 cm ? Account: [id number] Age: 53 yrs ?Weight: 102 kg Gender: [...] slight decrease in LV systolic function. Procedure Complete-[id number]. Satisfactory quality. There is normal sinus rhythm. [...] Note Jose Gallegos MD - 06/22/2023 [address] [place] [address] Echocardiogram Report Name: LOIDA ROQUE Study Date: 06/22/2023 02:49 PM Patient Location: [place] [address] A HR:57 : 1970 Height: 162 cmAccount: [id number] Age: 53 yrs Weight: 102 kg Gender: [...] a slightdecrease in LV systolic function. Procedure Complete-[id number]. Satisfactory quality. There is normal sinus rhythm. [...] * (ABNORMAL) Troponin (06/22/2023 2:38 PM EDT) Troponin-T, High Sensitivity 22(H) <=14 ng/L [facility] [...] can be found in the [facility] Laboratory Test Catalog Troponin - [facility] Laboratory Test Catalog Reference: Fourth [place] Definition of Myocardial Infarction. Journal of the [place] [employer] 2018;72:3144-5429 Blood 06/22/2023 2:38 PM EDT 06/22/2023 2:50 PM EDT Narrative Resulting Agency Comment Spec In Lab Ailyn Irvin MD CHEMISTRY ORDERABLES Performing Organization Address City/State/[facility] Co de Phone Number [facility] [place] [address] * Duplex for DVT, Arm, Unilat (06/22/2023 2:24 PM EDT) VB Text Report Department: Vascular Surgery Lab Patient: [id number] (LOIDA ROQUE) CPT: [id number] Referring Physician: AILYN IRVIN ?? Phone: Indications: [...] ? Electronically signed by: Itz Hayward MD, [facility] ??([phone]), at 06/22/2023 11:47 AM Narrative 06/22/2023 11:47 [...] first. Electronically signed by: Itz Hayward MD, [facility]([phone]), at 06/22/2023 11:47 AM Ailyn Irvin MD IMG DX ORDERABLES * (ABNORMAL) Troponin (06/22/2023 11:24 AM EDT) [facility] Troponin-T, High Sensitivity 22(H) <=14 ng/L [facility] [...] can be found in the [facility] Laboratory Test Catalog Troponin - [facility] Laboratory Test Catalog Reference: Fourth [place] Definition of Myocardial Infarction. Journal of the [place] [employer] 2018;72:1029-5423 Blood 06/22/2023 11:2 4 AM EDT 06/22/2023 11:44 AM EDT Narrative Resulting Agency Comment Spec In Lab Ailyn Irvin MD CHEMISTRY ORDERABLES Performing Organization Address City/[facility]/ZIP Co de Phone Number [facility] [place] [address] * EKG 12 Lead (06/22/2023 11:13 AM EDT) Ventricular rate 63 BPM MUSE SYSTEM Atrial Rate 63 BPM MUSE SYSTEM P-R Interval 162 ms MUSE SYSTEM QRS Duration 86 ms MUSE SYSTEM Q-T Interval 382 ms MUSE SYSTEM QTC Calculated (Bezet) 390 ms MUSE SYSTEM Calculated P [place] 24 degrees MUSE SYSTEM Calculated R [place] 32 degrees MUSE SYSTEM Calculated T [place] -2 degrees MUSE SYSTEM INTERPRETATION Normal sinus rhythm Septal infarct (cited on or before 22-JUN-2023) Possible Lateral infarct , age undetermined ST & T wave abnormality, consider inferolateral ischemia Abnormal ECG When compared with ECG of 22-JUN-2023 10:55, No significant change was found Confirmed by MD Angelo Danette ([id number]) on 06/22/2023 3:56:31 PM MUSE SYSTEM 06/22/2023 11:1 3 AM EDT 06/22/2023 3:56 PM EDT Ailyn Irvin MD ECG ORDERABLES Performing Organization Address City/[facility]/ZIP Co de Phone Number MUSE SYSTEM * EKG 12 Lead (06/22/2023 10:55 AM EDT) Ventricular rate 56 BPM MUSE SYSTEM Atrial Rate 56 BPM MUSE SYSTEM P-R Interval 168 ms MUSE SYSTEM QRS Duration 88 ms MUSE SYSTEM Q-T Interval 426 ms MUSE SYSTEM QTC Calculated (Bezet) 411 ms MUSE SYSTEM Calculated P [place] 22 degrees MUSE SYSTEM Calculated R [place] 20 degrees MUSE SYSTEM Calculated T [place] 10 degrees MUSE SYSTEM INTERPRETATION Sinus bradycardia Septal infarct , age undetermined ST & T wave abnormality, consider inferolateral ischemia Abnormal ECG When compared with ECG of 21-JUN-2023 10:06, Septal infarct is now Present Confirmed by MD Angelo Danette ([id number]) on 06/22/2023 3:55:53 PM MUSE SYSTEM 06/22/2023 10:5 5 AM EDT 06/22/2023 3:55 PM EDT Ailyn Irvin MD ECG ORDERABLES MUSE SYSTEM * Differential, Automated (06/22/2023 4:34 AM EDT) Neutrophil % 54.4 % [facility] Neutrophil Absolute 4.07 1.70 - 6.10 x10(3)/[facility] LABORATORY Lymph % 30.6 % [facility] Lymphocytes Abs 2.3 0.9 - 3.2 x10(3)/[facility] LABORATORY Monocyte % 9.9 % [facility] Monocyte Abs 0.7 0.3 - 0.9 x10(3)/[facility] LABOR[facility] Eos % 4.3 % [facility] Eosinophils Abs 0.3 0.0 - 0.4 x10(3)/[facility] Basophil % 0.7 % [facility] Baso Absolute 0.0 0.0 - 0.1 x10(3)/[facility] Immature Gran % 0.10 % [facility] Comment: Immature granulocytes(IG's)percentage and absolute count will include metamyelocytes, myelocytes, and promyelocytes. Blood smears from CBCs yielding IG's will be scanned manually for concordance. If this scan disagrees with the automated IG or if promyelocytes are noted, a manual differential will be performed. Immature Gran Absolute 0.01 0.00 - 0.04 x10(3)/[facility] LAB[facility] Blood 06/22/2023 4:34 AM EDT 06/22/2023 4:42 AM EDT Narrative Resulting Agency Comment Spec In Lab Terrence Keating MD HEMATOLOGY ORDERABLE S [facility] [place] [address] * (ABNORMAL) Hemogram (06/22/2023 4:34 AM EDT) White Blood Cell 7.5 4.0 - 9.5 x10(3)/mc L [facility] Red Blood Cell 4.04 4.00 - 5.21 x10(6)/mc L [facility] Hemoglobin 12.8 11.7 - 15.5 g/dL [facility] Hematocrit 39.1 35.7 - 45.8 % [facility] Mean Cell Volume 96.8(H) 82.6 - 94.4 fL [facility] Mean Cell Hemoglobin 31.7 27.1 - 32.0 pg [facility] Mean Cell Hemoglobin Concentration 32.7 31.7 - 35.0 g/dL [facility] Platelet 225 145 - 357 x10(3)/mc L [facility] RDW Standard Deviation 45.9 37.0 - 46.0 fL [facility] RDW coefficient of variation 13.0 11.5 - 14.1 % [facility] Mean Platelet Volume 10.6 7.6 - 12.9 fL [facility] NRBC% auto 0.0 % [facility] NRBC Absolute 0.000 0.000 - 0.000 x10(3)/mc L [facility] Blood 06/22/2023 4:34 AM EDT 06/22/2023 4:42 AM EDT Narrative Resulting Agency Comment Spec In Lab Terrence Keating MD HEMATOLOGY ORDERABLE S [facility] [place] [address] * (ABNORMAL) Basic Metabolic Panel (non-fasting) (06/22/2023 4:34 AM EDT) Glucose 94 65 - 199 mg/dL [facility] Comment:Diabetes: >=200 mg/d L plus symptoms Blood Urea Nitrogen 22(H) 8 - 18 mg/dL [facility] - 107 mmol/L [facility] Carbon Dioxide 19(L) 22 - 31 mmol/L [facility] Anion Gap 17(H) 5 - 15 mmol/L [facility] Calcium 9.4 8.5 - 10.5 mg/dL [facility] Est Glomerular Filtration Rate 54(L) >=60 mL/min/1. 73 m?? [facility] CHEMISTRY ORDERABL ES [facility] [place] [address] * (ABNORMAL) Phosphorus (06/22/2023 4:34 AM EDT) Phosphorus 4.9(H) 2.5 - 4.5 mg/dL [facility] Blood 06/22/2023 4:34 AM EDT 06/22/2023 4:42 AM EDT Narrative Resulting Agency Comment Spec In Lab Eufemia Copeland MD CHEMISTRY ORDERABL ES Performing Organization Address [facility] [place] [address] * Magnesium (06/22/2023 4:34 AM EDT) Magnesium 1.02 0.69 - 1.07 mmol/L [facility] Blood 06/22/2023 4:34 AM EDT 06/22/2023 4:42 AM EDT Narrative Resulting Agency Comment Spec In Lab Eufemia Copeland MD CHEMISTRY ORDERABL ES Performing Organization Address [facility] de Phone Number [facility] [place] [address] * CT Abdomen & Pelvis w Contrast [...] ? Electronically signed by: RONDA DUFFY MD, [facility] ([phone]), at 06/22/2023 7:59 AM Narrative 06/22/2023 7:59 [...] first. Electronically signed by: RONDA DUFFY MD, [facility]([phone]), at 06/22/2023 7:59 AM Eufemia Copeland MD IMG CT ORDERABLES * EKG 12 Lead (06/21/2023 10:06 AM EDT) Ventricular rate 51 BPM MUSE SYSTEM Atrial Rate 51 BPM MUSE SYSTEM P-R Interval 176 ms MUSE SYSTEM QRS Duration 92 ms MUSE SYSTEM Q-T Interval 450 ms MUSE SYSTEM QTC Calculated (Bezet) 414 ms MUSE SYSTEM Calculated P [place] 17 degrees MUSE SYSTEM Calculated R [place] 35 degrees MUSE SYSTEM Calculated T [place] 13 degrees MUSE SYSTEM INTERPRETATION Sinus bradycardia Nonspecific ST and T wave abnormality Abnormal ECG When compared with ECG of 19-JUN-2023 04:24, T wave inversion now evident in Inferior leads T wave inversion now evident in Anterior leads QT has shortened Confirmed by Wahrenberger, MD, Gus ([id number]) on 06/21/2023 3:52:44 PM MUSE SYSTEM 06/21/2023 10:0 6 AM EDT 06/21/2023 3:52 PM EDT Eufemia Copeland MD ECG ORDERABLES Performing Organization Address City/[facility]/ZIP Co de Phone Number MUSE SYSTEM * (ABNORMAL) Troponin (06/21/2023 9:45 AM EDT) Troponin-T, High Sensitivity 22(H) <=14 ng/L [facility] [...] can be found in the [facility] Laboratory Test Catalog Troponin - [facility] Laboratory Test Catalog Reference: Fourth [place] Definition of Myocardial Infarction. Journal of the [place] [employer] 2018;72:3354-3672 Blood 06/21/2023 9:45 AM EDT 06/21/2023 10:08 AM EDT Narrative Resulting Agency Comment Spec In Lab Eufemia Copeland MD CHEMISTRY ORDERABL ES Performing Organization Address City/[facility]/ZIP Co de Phone Number [facility] [place] [address] * (ABNORMAL) pro-Brain Natriuretic Peptide (06/21/2023 5:58 AM EDT) [facility] NT-proBNP 1,370(H) <=124 pg/mL [facility] Blood Venous Draw / Unknown 06/21/2023 5:58 AM EDT 06/21/2023 7:28 AM EDT Narrative Resulting Agency Comment Spec In Lab Eufemia Copeland MD CHEMISTRY ORDERABL ES Performing Organization Address [facility]/ZIP Co de Phone Number [facility] [place] [address] * Potassium (06/21/2023 5:58 AM EDT) [facility] Potassium 4.0 3.5 - 5.0 mmol/L [place] [...] MD CHEMISTRY ORDERABL ES Performing Organization Address City/[facility]/ZIP Co de Phone Number [facility] [place] [address] * Differential, Automated (06/21/2023 3:25 AM EDT) [facility] Neutrophil % 54.0 % [facility] Neutrophil Absolute 5.02 1.70 - 6.10 x10(3)/[facility] LABORATORY Lymph % 31.8 % [facility] Lymphocytes Abs 3.0 0.9 - 3.2 x10(3)/[facility] LABORATORY Monocyte % 8.9 % [facility] Monocyte Abs 0.8 0.3 - 0.9 x10(3)/[facility] LABORATORY Eos % 4.2 % [facility] Eosinophils Abs 0.4 0.0 - 0.4 x10(3)/[facility] LABORATORY Basophil % 0.8 % [facility] Baso Absolute 0.1 0.0 - 0.1 x10(3)/[facility] LABORATORY Immature Gran % 0.30 % [facility] Comment: Immature granulocytes(IG's)percentage and absolute count will include metamyelocytes, myelocytes, and promyelocytes. Blood smears from CBCs yielding IG's will be scanned manually for concordance. If this scan disagrees with the automated IG or if promyelocytes are noted, a manual differential will be performed. Immature Gran Absolute 0.03 0.00 - 0.04 x10(3)/[facility] LABORATORY Blood 06/21/2023 3:25 AM EDT 06/21/2023 3:45 AM EDT Narrative Resulting Agency Comment Spec In Lab Terrence Keating MD HEMATOLOGY ORDERABLE S Performing Organization Address City/State/[facility] Co de Phone Number [facility] [place] [address] * Hemogram (06/21/2023 3:25 AM EDT) White Blood Cell 9.3 4.0 - 9.5 x10(3)/[facility] LABORATORY Red Blood Cell 4.74 4.00 - 5.21 x10(6)/[facility] LABOR[facility]ORY Hemoglobin 14.9 11.7 - 15.5 g/dL [facility] Hematocrit 44.2 35.7 - 45.8 % [facility] Mean Cell Volume 93.2 82.6 - 94.4 fL [facility] Mean Cell Hemoglobin 31.4 27.1 - 32.0 pg [facility] Mean Cell Hemoglobin Concentration 33.7 31.7 - 35.0 g/dL [facility] Platelet 279 145 - 357 x10(3)/[facility] LABORATORY RDW Standard Deviation 44.7 37.0 - 46.0 fL [facility] RDW coefficient of variation 13.1 11.5 - 14.1 % [facility] Mean Platelet Volume 11.1 7.6 - 12.9 fL [facility] NRBC% auto 0.0 % [facility] NRBC Absolute 0.000 0.000 - 0.000 x10(3)/[facility] LABORATORY Blood 06/21/2023 3:25 AM EDT 06/21/2023 3:45 AM EDT Narrative Resulting Agency Comment Spec In Lab Terrence Keating MD HEMATOLOGY ORDERABLE S [facility] [place] [address] * (ABNORMAL) Basic Metabolic Panel (non-fasting) (06/21/2023 3:25 AM EDT) Glucose 95 65 - 199 mg/dL [facility] Comment:Diabetes: >=200 mg/d L plus symptoms Blood Urea Nitrogen 27(H) 8 - 18 mg/dL [facility] Creatinine 1.11 0.70 - 1.20 mg/dL [facility] [...] - 107 mmol/L [facility] Carbon Dioxide 26 22 - 31 mmol/L [facility] Anion Gap 12 5 - 15 mmol/L [facility] Calcium 9.7 8.5 - 10.5 mg/dL [facility] Est Glomerular Filtration Rate 59(L) >=60 mL/min/1. 73 m?? [facility] [...] MD CHEMISTRY ORDERABL ES Performing Organization Address City/[facility]/ZIP Co de Phone Number [facility] [place] [address] * (ABNORMAL) Phosphorus (06/21/2023 3:25 AM EDT) Phosphorus 5.1(H) 2.5 - 4.5 mg/dL [facility] Blood 06/21/2023 3:25 AM EDT 06/21/2023 3:45 AM EDT Narrative Resulting Agency Comment Spec In Lab Eufemia Copeland MD CHEMISTRY ORDERABL ES [facility] [place] [address] * Magnesium (06/21/2023 3:25 AM EDT) Magnesium 1.04 0.69 - 1.07 mmol/L [facility] Blood 06/21/2023 3:25 AM EDT 06/21/2023 3:45 AM EDT Narrative Resulting Agency Comment Spec In Lab Eufemia Copeland MD CHEMISTRY ORDERABL ES [facility] [place] [address] * (ABNORMAL) Differential, Automated (06/20/2023 3:32 AM EDT) Neutrophil % 52.5 % [facility] Neutrophil Absolute 5.28 1.70 - 6.10 x10(3)/mc L [facility] Lymph % 32.4 % [facility] Lymphocytes Abs 3.3(H) 0.9 - 3.2 x10(3)/ L [facility] Monocyte % 9.7 % [facility] Monocyte Abs 1.0(H) 0.3 - 0.9 x10(3)/mc L [facility] Eos % 4.3 % [facility] Eosinophils Abs 0.4 0.0 - 0.4 x10(3)/[facility] LABORATORY Basophil % 0.7 % [facility] Baso Absolute 0.1 0.0 - 0.1 x10(3)/mc L [facility] Immature Gran % 0.40 % [facility] Comment: Immature granulocytes(IG's)percentage and absolute count will include metamyelocytes, myelocytes, and promyelocytes. Blood smears from CBCs yielding IG's will be scanned manually for concordance. If this scan disagrees with the automated IG or if promyelocytes are noted, a manual differential will be performed. Immature Gran Absolute 0.04 0.00 - 0.04 x10(3)/mc L [facility] Blood 06/20/2023 3:32 AM EDT 06/20/2023 3:47 AM EDT Narrative Resulting Agency Comment Spec In Lab Terrence Keating MD HEMATOLOGY ORDERABLE S [facility] [place] [address] * (ABNORMAL) Hemogram (06/20/2023 3:32 AM EDT) White Blood Cell 10.1(H) 4.0 - 9.5 x10(3)/mc L [facility] Red Blood Cell 4.57 4.00 - 5.21 x10(6)/mc L [facility] Hemoglobin 14.2 11.7 - 15.5 g/dL [facility] Hematocrit 41.5 35.7 - 45.8 % [facility] Mean Cell Volume 90.8 82.6 - 94.4 fL [facility] Mean Cell Hemoglobin 31.1 27.1 - 32.0 pg [facility] Mean Cell Hemoglobin Concentration 34.2 31.7 - 35.0 g/dL [facility] Platelet 253 145 - 357 x10(3)/mc L [facility] RDW Standard Deviation 43.7 37.0 - 46.0 fL [facility] RDW coefficient of variation 13.2 11.5 - 14.1 % [facility] Mean Platelet Volume 10.8 7.6 - 12.9 fL [facility] NRBC% auto 0.0 % [facility] NRBC Absolute 0.000 0.000 - 0.000 x10(3)/mc L [facility] Blood 06/20/2023 3:32 AM EDT 06/20/2023 3:47 AM EDT Narrative Resulting Agency Comment Spec In Lab Terrence Keating MD HEMATOLOGY ORDERABLE S Performing Organization Address City/[facility]/ZIP Co de Phone Number [facility] [place] [address] * (ABNORMAL) Basic Metabolic Panel (non-fasting) (06/20/2023 3:32 AM EDT) Glucose 99 65 - 199 mg/dL [facility] Comment:Diabetes: >=200 mg/d L plus symptoms Blood Urea Nitrogen 26(H) 8 - 18 mg/dL [facility] Creatinine 1.12 0.70 - 1.20 mg/dL [facility] [...] - 107 mmol/L [facility] Carbon Dioxide 22 22 - 31 mmol/L [facility] Anion Gap 13 5 - 15 mmol/L [facility] Calcium 9.4 8.5 - 10.5 mg/dL [facility] Est Glomerular Filtration Rate 58(L) >=60 mL/min/1. 73 m?? [facility] CHEMISTRY ORDERABL ES [facility] [place] [address] * Phosphorus (06/20/2023 3:32 AM EDT) Phosphorus 4.3 2.5 - 4.5 mg/dL [facility] Blood 06/20/2023 3:32 AM EDT 06/20/2023 3:47 AM EDT Narrative Resulting Agency Comment Spec In Lab Eufemia Copeland MD CHEMISTRY ORDERABL ES [facility] [place] [address] * Magnesium (06/20/2023 3:32 AM EDT) Magnesium 1.00 0.69 - 1.07 mmol/L [facility] Blood 06/20/2023 3:32 AM EDT 06/20/2023 3:47 AM EDT Narrative Resulting Agency Comment Spec In Lab Eufemia Copeland MD CHEMISTRY ORDERABL ES Performing Organization Address City/[facility]/ZIP Co de Phone Number [facility] [place] [address] * Phosphorus (06/19/2023 5:26 PM EDT) Phosphorus 4.0 2.5 - 4.5 mg/dL [facility] Blood 06/19/2023 5:26 PM EDT 06/19/2023 5:32 PM EDT Narrative Resulting Agency Comment Spec In Lab Eufemia Copeland MD CHEMISTRY ORDERABL ES Performing Organization Address City/[facility]/ZIP Co de Phone Number [facility] [place] [address] * Magnesium (06/19/2023 5:26 PM EDT) Magnesium 0.98 0.69 - 1.07 mmol/L [facility] Blood 06/19/2023 5:26 PM EDT 06/19/2023 5:32 PM EDT Narrative Resulting Agency Comment Spec In Lab Eufemia Copeland MD CHEMISTRY ORDERABL ES [facility] [place] [address] * (ABNORMAL) Basic Metabolic Panel (non-fasting) (06/19/2023 5:26 PM EDT) Glucose 105 65 - 199 mg/dL [facility] Comment:Diabetes: >=200 mg/d L plus symptoms Blood Urea Nitrogen 21(H) 8 - 18 mg/dL [facility] Creatinine 1.06 0.70 - 1.20 mg/dL [facility] [...] - 107 mmol/L [facility] Carbon Dioxide 22 22 - 31 mmol/L [facility] Anion Gap 14 5 - 15 mmol/L [facility] Calcium 9.5 8.5 - 10.5 mg/dL [facility] Est Glomerular Filtration Rate 62 >=60 mL/min/1. 73 m?? [facility] [...] MD CHEMISTRY ORDERABL ES Performing Organization Address City/[facility]/ZIP Co de Phone Number [facility] [place] [address] * EKG 12 Lead (06/19/2023 4:24 AM EDT) Ventricular rate 66 BPM MUSE SYSTEM Atrial Rate 66 BPM MUSE SYSTEM P-R Interval 188 ms MUSE SYSTEM QRS Duration 92 ms MUSE SYSTEM Q-T Interval 484 ms MUSE SYSTEM QTC Calculated (Bezet) 507 ms MUSE SYSTEM Calculated P [place] 32 degrees MUSE SYSTEM Calculated R [place] 22 degrees MUSE SYSTEM Calculated T [place] 47 degrees MUSE SYSTEM INTERPRETATION Normal sinus rhythm Nonspecific ST abnormality Prolonged QT Abnormal ECG When compared with ECG of 15-JUN-2023 10:50, No significant change was found Confirmed by MD AKIRA, CINDY ([id number]) on 06/19/2023 2:42:42 PM MUSE SYSTEM 06/19/2023 4:24 AM EDT 06/19/2023 2:42 PM EDT Terrence Keating MD ECG ORDERABLES Performing Organization Address City/[facility]/ZIP Co de Phone Number MUSE SYSTEM * (ABNORMAL) Basic Metabolic Panel (non-fasting) (06/19/2023 3:22 AM EDT) Glucose 101 65 - 199 mg/dL [facility] Comment:Diabetes: >=200 mg/d L plus symptoms Blood Urea Nitrogen 24(H) 8 - 18 mg/dL [facility] Creatinine 1.04 0.70 - 1.20 mg/dL [facility] [...] - 107 mmol/L [facility] Carbon Dioxide Not Perf 22 - [facility] Comment:Add-on request. Samp le too old to perform test. Anion Gap Unable to Calculate 5 - 15 mmol/L [facility] Calcium 9.4 8.5 - 10.5 mg/dL [facility] Est Glomerular Filtration Rate 64 >=60 mL/min/1 .73 m?? [facility] Comment: This [...] CHEMISTRY ORDERABL ES [facility] [place] [address] * Differential, Automated (06/19/2023 3:22 AM EDT) Neutrophil % 54.0 % [facility] Neutrophil Absolute 5.08 1.70 - 6.10 x10(3)/[facility] LABORATORY Lymph % 30.7 % [facility] Lymphocytes Abs 2.9 0.9 - 3.2 x10(3)/[facility] LABORATORY Monocyte % 10.0 % [facility] Monocyte Abs 0.9 0.3 - 0.9 x10(3)/[facility] LABOR[facility] Eos % 4.5 % [facility] Eosinophils Abs 0.4 0.0 - 0.4 x10(3)/[facility] LABORATORY Basophil % 0.6 % [facility] Baso Absolute 0.1 0.0 - 0.1 x10(3)/[facility] LABORATORY Immature Gran % 0.20 % [facility] Comment: Immature granulocytes(IG's)percentage and absolute count will include metamyelocytes, myelocytes, and promyelocytes. Blood smears from CBCs yielding IG's will be scanned manually for concordance. If this scan disagrees with the automated IG or if promyelocytes are noted, a manual differential will be performed. Immature Gran Absolute 0.02 0.00 - 0.04 x10(3)/[facility] LABORATORY Blood 06/19/2023 3:22 AM EDT 06/19/2023 3:47 AM EDT Narrative Resulting Agency Comment Spec In Lab Terrence Keating MD HEMATOLOGY ORDERABLE S Performing Organization Address City/State/[facility] Co de Phone Number [facility] [place] [address] * Hemogram (06/19/2023 3:22 AM EDT) White Blood Cell 9.4 4.0 - 9.5 x10(3)/[facility] LABORATORY Red Blood Cell 4.48 4.00 - 5.21 x10(6)/[facility] LABOR[facility]ORY Hemoglobin 13.9 11.7 - 15.5 g/dL [facility] Hematocrit 41.7 35.7 - 45.8 % [facility] Mean Cell Volume 93.1 82.6 - 94.4 fL [facility] Mean Cell Hemoglobin 31.0 27.1 - 32.0 pg [facility] Mean Cell Hemoglobin Concentration 33.3 31.7 - 35.0 g/dL [facility] Platelet 244 145 - 357 x10(3)/[facility] LABORATORY RDW Standard Deviation 44.2 37.0 - 46.0 [facility] LABORATORY RDW coefficient of variation 12.9 11.5 - 14.1 % [facility] Mean Platelet Volume 10.9 7.6 - 12.9 fL [facility] NRBC% auto 0.0 % [facility] NRBC Absolute 0.000 0.000 - 0.000 x10(3)/[facility] LAB[facility]ATORY Blood 06/19/2023 3:22 AM EDT 06/19/2023 3:47 AM EDT Narrative Resulting Agency Comment Spec In Lab Terrence Keating MD HEMATOLOGY ORDERABLE S Performing Organization Address City/[facility]/ZIP Co de Phone Number [facility] [place] [address] * Phosphorus (06/19/2023 3:22 AM EDT) Phosphorus 4.1 2.5 - 4.5 mg/dL [facility] Blood 06/19/2023 3:22 AM EDT 06/19/2023 3:47 AM EDT Narrative Resulting Agency Comment Spec In Lab Eufemia Copeland MD CHEMISTRY ORDERABL ES Performing Organization Address City/[facility]/ZIP Co de Phone Number [facility] [place] [address] * Magnesium (06/19/2023 3:22 AM EDT) Magnesium 1.00 0.69 - 1.07 mmol/L [facility] Blood 06/19/2023 3:22 AM EDT 06/19/2023 3:47 AM EDT Narrative Resulting Agency Comment Spec In Lab Eufemia Copeland MD CHEMISTRY ORDERABL ES [facility] [place] [address] * (ABNORMAL) Basic Metabolic Panel (non-fasting) (06/18/2023 5:17 PM EDT) Glucose 115 65 - 199 mg/dL [facility] Comment:Diabetes: >=200 mg/d L plus symptoms Blood Urea Nitrogen 22(H) 8 - 18 mg/dL [facility] Creatinine 1.12 0.70 - 1.20 mg/dL [facility] [...] - 107 mmol/L [facility] Carbon Dioxide 22 22 - 31 mmol/L [facility] Anion Gap 14 5 - 15 mmol/L [facility] Calcium 9.6 8.5 - 10.5 mg/dL [facility] Est Glomerular Filtration Rate 58(L) >=60 mL/min/1. 73 m?? [facility] CHEMISTRY ORDERABL ES [facility] [place] [address] * (ABNORMAL) Basic Metabolic Panel (non-fasting) (06/18/2023 4:19 AM EDT) Glucose 96 65 - 199 mg/dL [facility] Comment:Diabetes: >=200 mg/d L plus symptoms Blood Urea Nitrogen 22(H) 8 - 18 mg/dL [facility] Creatinine 0.93 0.70 - 1.20 mg/dL [facility] [...] - 107 mmol/L [facility] Carbon Dioxide Not Perf 22 - 31 [facility] Comment:Add-on request. Samp le too old to perform test. Anion Gap Unable to Calculate 5 - 15 mmol/L [facility] Calcium 9.5 8.5 - 10.5 mg/dL [facility] Est Glomerular Filtration Rate 73 >=60 mL/min/1 .73 m?? [facility] Comment: This [...] MD CHEMISTRY ORDERABL ES Performing Organization Address City/[facility]/ZIP Co de Phone Number [facility] [place] [address] * Differential, Automated (06/18/2023 4:19 AM EDT) Neutrophil % 54.1 % [facility] Neutrophil Absolute 4.52 1.70 - 6.10 x10(3)/[facility] LABORATORY Lymph % 31.0 % [facility] Lymphocytes Abs 2.6 0.9 - 3.2 x10(3)/[facility] LABORATORY Monocyte % 9.2 % [facility] Monocyte Abs 0.8 0.3 - 0.9 x10(3)/[facility] LABOR[facility]ORY Eos % 4.9 % [facility] Eosinophils Abs 0.4 0.0 - 0.4 x10(3)/[facility] LABOR[facility]ORY Basophil % 0.6 % [facility] Baso Absolute 0.0 0.0 - 0.1 x10(3)/[facility] LABOR[facility]ORY Immature Gran % 0.20 % [facility] Comment: Immature granulocytes(IG's)percentage and absolute count will include metamyelocytes, myelocytes, and promyelocytes. Blood smears from CBCs yielding IG's will be scanned manually for concordance. If this scan disagrees with the automated IG or if promyelocytes are noted, a manual differential will be performed. Immature Gran Absolute 0.02 0.00 - 0.04 x10(3)/[facility] LABOR[facility]ORY Blood 06/18/2023 4:19 AM EDT 06/18/2023 4:40 AM EDT Narrative Resulting Agency Comment Spec In Lab Terrence Keating MD HEMATOLOGY ORDERABLE S [facility] [place] [address] * Hemogram (06/18/2023 4:19 AM EDT) Pathologist [facility] White Blood Cell 8.4 4.0 - 9.5 x10(3)/[facility] LABORATORY Red Blood Cell 4.70 4.00 - 5.21 x10(6)/[facility] LAB[facility]ORY Hemoglobin 14.5 11.7 - 15.5 g/dL [facility] Hematocrit 42.8 35.7 - 45.8 % [facility] Mean Cell Volume 91.1 82.6 - 94.4 fL [facility] Mean Cell Hemoglobin 30.9 27.1 - 32.0 pg [facility] Mean Cell Hemoglobin Concentration 33.9 31.7 - 35.0 g/dL [facility] Platelet 258 145 - 357 x10(3)/[facility] LABORATORY RDW Standard Deviation 43.6 37.0 - 46.0 [facility] LABORATORY RDW coefficient of variation 13.0 11.5 - 14.1 % [facility] Mean Platelet Volume 10.7 7.6 - 12.9 fL [facility] NRBC% auto 0.0 % [facility] NRBC Absolute 0.000 0.000 - 0.000 x10(3)/[facility] LAB[facility] Blood 06/18/2023 4:19 AM EDT 06/18/2023 4:40 AM EDT Narrative Resulting Agency Comment Spec In Lab Terrence Keating MD HEMATOLOGY ORDERABLE S [facility] [place] [address] * Phosphorus (06/18/2023 4:19 AM EDT) Phosphorus 3.7 2.5 - 4.5 mg/dL [facility] Blood 06/18/2023 4:19 AM EDT 06/18/2023 4:40 AM EDT Narrative Resulting Agency Comment Spec In Lab Eufemia Copeland MD CHEMISTRY ORDERABL ES Performing Organization Address [facility]/ZIP Co de Phone Number [facility] [place] [address] * Magnesium (06/18/2023 4:19 AM EDT) Magnesium 1.02 0.69 - 1.07 mmol/L [facility] Blood 06/18/2023 4:19 AM EDT 06/18/2023 4:40 AM EDT Narrative Resulting Agency Comment Spec In Lab Eufemia Copeland MD CHEMISTRY ORDERABL ES Performing Organization Address [facility] Co de Phone Number [facility] [place] [address] * Phosphorus (06/17/2023 2:26 PM EDT) Phosphorus 2.8 2.5 - 4.5 mg/dL [facility] Blood 06/17/2023 2:26 PM EDT 06/17/2023 2:36 PM EDT Narrative Resulting Agency Comment Spec In Lab Eufemia Copeland MD CHEMISTRY ORDERABL ES Performing Organization Address City/[facility] Co de Phone Number [facility] [place] [address] * Magnesium (06/17/2023 2:26 PM EDT) Magnesium 1.01 0.69 - 1.07 mmol/L [facility] Blood 06/17/2023 2:26 PM EDT 06/17/2023 2:36 PM EDT Narrative Resulting Agency Comment Spec In Lab Eufemia Copeland MD CHEMISTRY ORDERABL ES [facility] [place] [address] * (ABNORMAL) Basic Metabolic Panel (non-fasting) (06/17/2023 2:26 PM EDT) Glucose 103 65 - 199 mg/dL [facility] Comment:Diabetes: >=200 mg/d L plus symptoms Blood Urea Nitrogen 21(H) 8 - 18 mg/dL [facility] Creatinine 1.07 0.70 - 1.20 mg/dL [facility] Sodium 135 135 - 145 mmol/L [facility] Potassium 3.7 3.5 - 5.0 mmol/L [facility] Comment: Please note: ??Patients with WBC >100,000 may have falsely elevated Potassium levels. ??For accurate Potassium quantification in these patients send serum separator tube (gold top) for subsequent determinations. ??Contact the Clinical Chemistry Laboratory if there are any questions. Chloride 97(L) 98 - 107 mmol/L [facility] Carbon Dioxide 24 22 - 31 mmol/L [facility] Anion Gap 14 5 - 15 mmol/L [facility] Calcium 9.6 8.5 - 10.5 mg/dL [facility] Est Glomerular Filtration Rate 62 >=60 mL/min/1. 73 m?? [facility] CHEMISTRY ORDERABL ES [facility] [place] [address] * XR Abdomen Flat & Upright (06/17/2023 [...] ? Electronically signed by: Wilton Cabrera MD, [facility] ([phone]), at 06/17/2023 5:30 PM Narrative 06/17/2023 5:30 PM EDT EXAMINATION: XR ABDOMEN FLAT AND UPRIGHT CLINICAL HISTORY: patient with foul odor from [facility]. hx hysterectomy, LLQ tenderness, constipation TECHNIQUE: [...] CLINICAL HISTORY: patient with foul odor from [facility]. hx hysterectomy, LLQ tenderness, constipation TECHNIQUE: [...] first. Electronically signed by: Wilton Cabrera MD, [facility]([phone]), at 06/17/2023 5:30 PM Eufemia Copeland MD IMG DX ORDERABLES * (ABNORMAL) Basic Metabolic Panel (non-fasting) (06/17/2023 5:01 AM EDT) Glucose 100 65 - 199 mg/dL [facility] Comment:Diabetes: >=200 mg/d L plus symptoms Blood Urea Nitrogen 24(H) 8 - 18 mg/dL [facility] - 107 mmol/L [facility] Carbon Dioxide 24 22 - 31 mmol/L [facility] Anion Gap 12 5 - 15 mmol/L [facility] Calcium 9.5 8.5 - 10.5 mg/dL [facility] Est Glomerular Filtration Rate 65 >=60 mL/min/1. 73 m?? [facility] In Lab Terrence Keating MD CHEMISTRY ORDERABLES [facility] [place] [address] * Differential, Automated (06/17/2023 1:11 AM EDT) Neutrophil % 54.5 % [facility] Neutrophil Absolute 5.20 1.70 - 6.10 x10(3)/[facility] Lymph % 31.4 % [facility] Lymphocytes Abs 3.0 0.9 - 3.2 x10(3)/[facility] Monocyte % 9.8 % [facility] Monocyte Abs 0.9 0.3 - 0.9 x10(3)/[facility] Eos % 3.4 % [facility] Eosinophils Abs 0.3 0.0 - 0.4 x10(3)/[facility] Basophil % 0.5 % [facility] Baso Absolute 0.0 0.0 - 0.1 x10(3)/[facility] Immature Gran % 0.40 % [facility] Comment: Immature granulocytes(IG's)percentage and absolute count will include metamyelocytes, myelocytes, and promyelocytes. Blood smears from CBCs yielding IG's will be scanned manually for concordance. If this scan disagrees with the automated IG or if promyelocytes are noted, a manual differential will be performed. Immature Gran Absolute 0.04 0.00 - 0.04 x10(3)/[facility] Blood 06/17/2023 1:11 AM EDT 06/17/2023 1:16 AM EDT Narrative Resulting Agency Comment Spec In Lab Terrence Keating MD HEMATOLOGY ORDERABLE S [facility] [place] [address] * Hemogram (06/17/2023 1:11 AM EDT) White Blood Cell 9.5 4.0 - 9.5 x10(3)/[facility] Red Blood Cell 4.60 4.00 - 5.21 x10(6)/[facility] Hemoglobin 14.2 11.7 - 15.5 g/dL [facility] Hematocrit 43.0 35.7 - 45.8 % [facility] Mean Cell Volume 93.5 82.6 - 94.4 fL [facility] Mean Cell Hemoglobin 30.9 27.1 - 32.0 pg [facility] Mean Cell Hemoglobin Concentration 33.0 31.7 - 35.0 g/dL [facility] Platelet 256 145 - 357 x10(3)/[facility] RDW Standard Deviation 45.0 37.0 - 46.0 [facility] RDW coefficient of variation 13.2 11.5 - 14.1 % [facility] Mean Platelet Volume 10.9 7.6 - 12.9 [facility] NRBC% auto 0.0 % [facility] NRBC Absolute 0.000 0.000 - 0.000 x10(3)/[facility] Blood 06/17/2023 1:11 AM EDT 06/17/2023 1:16 AM EDT Narrative Resulting Agency Comment Spec In Lab Terrence Keating MD HEMATOLOGY ORDERABLE S Performing Organization Address City/[facility]/ZIP Co de Phone Number [facility] [place] [address] * Magnesium (06/17/2023 1:11 AM EDT) Magnesium 0.96 0.69 - 1.07 mmol/L [facility] Blood 06/17/2023 1:11 AM EDT 06/17/2023 1:16 AM EDT Narrative Resulting Agency Comment Spec In Lab Eufemia Copeland MD CHEMISTRY ORDERABL ES Performing Organization Address [facility] Co de Phone Number [facility] [place] [address] * (ABNORMAL) Basic Metabolic Panel (non-fasting) (06/17/2023 1:11 AM EDT) Glucose 102 65 - 199 mg/dL [facility] Comment:Diabetes: >=200 mg/d L plus symptoms Blood Urea Nitrogen 24(H) 8 - 18 mg/dL [facility] Creatinine 1.08 0.70 - 1.20 mg/dL [facility] - 107 mmol/L [facility] Carbon Dioxide 24 22 - 31 mmol/L [facility] Anion Gap 13 5 - 15 mmol/L [facility] Calcium 9.2 8.5 - 10.5 mg/dL [facility] Est Glomerular Filtration Rate 61 >=60 mL/min/1. 73 m?? [facility] In Lab Terrence Keating MD CHEMISTRY ORDERABLES [facility] [place] [address] * (ABNORMAL) Basic Metabolic Panel (non-fasting) (06/16/2023 8:28 PM EDT) Glucose 111 65 - 199 mg/dL [facility] Comment:Diabetes: >=200 mg/d L plus symptoms Blood Urea Nitrogen 23(H) 8 - 18 mg/dL [facility] Creatinine 1.21(H) 0.70 - 1.20 mg/dL [facility] [...] - 107 mmol/L [facility] Carbon Dioxide 26 22 - 31 mmol/L [facility] Anion Gap 12 5 - 15 mmol/L [facility] Calcium 9.3 8.5 - 10.5 mg/dL [facility] Est Glomerular Filtration Rate 53(L) >=60 mL/min/1. 73 m?? [facility] CHEMISTRY ORDERABL ES [facility] [place] [address] * (ABNORMAL) Basic Metabolic Panel (non-fasting) (06/16/2023 2:29 PM EDT) Pathologist [facility] Glucose 175 65 - 199 mg/dL [facility] Comment:Diabetes: >=200 mg/d L plus symptoms Blood Urea Nitrogen 25(H) 8 - 18 mg/dL [facility] Creatinine 1.27(H) 0.70 - 1.20 mg/dL [facility] Sodium 135 135 - 145 mmol/L [facility] Potassium 3.9 3.5 - 5.0 mmol/L [facility] Comment: result rechecked-EL Please note: ??Patients with WBC >100,000 may have falsely elevated Potassium levels. ??For accurate Potassium quantification in these patients send serum separator tube (gold top) for subsequent determinations. ??Contact the Clinical Chemistry Laboratory if there are any questions. Chloride 96(L) 98 - 107 mmol/L [facility] Carbon Dioxide 26 22 - 31 mmol/L [facility] Anion Gap 13 5 - 15 mmol/L [facility] Calcium 9.3 8.5 - 10.5 mg/dL [facility] Est Glomerular Filtration Rate 50(L) >=60 mL/min/1. 73 m?? [facility] CHEMISTRY ORDERABL ES [facility] [place] [address] * (ABNORMAL) Basic Metabolic Panel (non-fasting) (06/16/2023 9:01 AM EDT) Glucose 148 65 - 199 mg/dL [facility] Comment:Diabetes: >=200 mg/d L plus symptoms Blood Urea Nitrogen 27(H) 8 - 18 mg/dL [facility] Creatinine 1.27(H) 0.70 - 1.20 mg/dL [facility] Sodium 136 135 - 145 mmol/L [facility] Potassium 2.9(Criti edy) 3.5 - 5.0 mmol/L [facility] Comment: called by tmp /read back by (Malia Mcintyre)/ 06/16/23 @983 Please note: ??Patients with WBC >100,000 may have falsely elevated Potassium levels. ??For accurate Potassium quantification in these patients send serum separator tube (gold top) for subsequent determinations. ??Contact the Clinical Chemistry Laboratory if there are any questions. Chloride 91(L) 98 - 107 mmol/L [facility] Carbon Dioxide 32(H) 22 - 31 mmol/L [facility] Anion Gap 13 5 - 15 mmol/L [facility] Calcium 9.7 8.5 - 10.5 mg/dL [facility] Est Glomerular Filtration Rate 50(L) >=60 mL/min/1. 73 m?? [facility] [...] MD CHEMISTRY ORDERABL ES Performing Organization Address [facility]/ZIP Co de Phone Number [facility] [place] [address] * (ABNORMAL) Magnesium (06/16/2023 3:30 AM EDT) Magnesium 1.09(H) 0.69 - 1.07 mmol/L [facility] Blood Venous Draw / Unknown 06/16/2023 3:30 AM EDT 06/16/2023 3:38 AM EDT Narrative Resulting Agency Comment Spec In Lab Eufemia Copeland MD CHEMISTRY ORDERABL ES Performing Organization Address City/[facility]/ZIP Co de Phone Number [facility] [place] [address] * (ABNORMAL) Differential, Automated (06/16/2023 3:30 AM EDT) Pathologist [facility] Neutrophil % 50.4 % [facility] Neutrophil Absolute 4.15 1.70 - 6.10 x10(3)/[facility] Lymph % 33.7 % [facility] Lymphocytes Abs 2.8 0.9 - 3.2 x10(3)/[facility] Monocyte % 11.8 % [facility] Monocyte Abs 1.0(H) 0.3 - 0.9 x10(3)/[facility] Eos % 3.3 % [facility] Eosinophils Abs 0.3 0.0 - 0.4 x10(3)/[facility] Basophil % 0.6 % [facility] Baso Absolute 0.0 0.0 - 0.1 x10(3)/[facility] Immature Gran % 0.20 [...] - 0.04 x10(3)/[facility] Blood 06/16/2023 3:30 AM EDT 06/16/2023 3:37 AM EDT Narrative Resulting Agency Comment Spec In Lab Terrence Keating MD HEMATOLOGY ORDERABLE S [facility] [place] [address] * Hemogram (06/16/2023 3:30 AM EDT) Pathologist [facility] White Blood Cell 8.2 4.0 - 9.5 x10(3)/[facility] Red Blood Cell 4.69 4.00 - 5.21 x10(6)/[facility] Hemoglobin 14.5 11.7 - 15.5 g/dL [facility] Hematocrit 42.7 35.7 - 45.8 % [facility] Mean Cell Volume 91.0 82.6 - 94.4 fL [facility] Mean Cell Hemoglobin 30.9 27.1 - 32.0 pg [facility] Mean Cell Hemoglobin Concentration 34.0 31.7 - 35.0 g/dL [facility] Platelet 260 145 - 357 x10(3)/[facility] RDW Standard Deviation 43.5 37.0 - 46.0 [facility] RDW coefficient of variation 13.0 11.5 - 14.1 % [facility] Mean Platelet Volume 11.1 7.6 - 12.9 [facility] NRBC% auto 0.0 % [facility] NRBC Absolute 0.000 0.000 - 0.000 x10(3)/[facility] Blood 06/16/2023 3:30 AM EDT 06/16/2023 3:37 AM EDT Narrative Resulting Agency Comment Spec In Lab Terrence Keating MD HEMATOLOGY ORDERABLE S [facility] [place] [address] * (ABNORMAL) Basic Metabolic Panel (non-fasting) (06/16/2023 3:30 AM EDT) Glucose 110 65 - 199 mg/dL [facility] Comment:Diabetes: >=200 mg/d L plus symptoms Blood Urea Nitrogen 28(H) 8 - 18 mg/dL [facility] Creatinine 1.20 0.70 - 1.20 mg/dL [facility] Sodium 135 135 - 145 mmol/L [facility] Potassium 2.7(Criti edy) 3.5 - 5.0 mmol/L [facility] Comment: called by KS /read back by Jolly Friedman / 06/16/23 2540 Please note: ??Patients with WBC >100,000 may have falsely elevated Potassium levels. ??For accurate Potassium quantification in these patients send serum separator tube (gold top) for subsequent determinations. ??Contact the Clinical Chemistry Laboratory if there are any questions. Chloride 90(L) 98 - 107 mmol/L [facility] Carbon Dioxide 33(H) 22 - 31 mmol/L [facility] Anion Gap 12 5 - 15 mmol/L [facility] Calcium 9.2 8.5 - 10.5 mg/dL [facility] Est Glomerular Filtration Rate 54(L) >=60 mL/min/1. 73 m?? [facility] CHEMISTRY ORDERABL ES [facility] [place] [address] * Heparin (unfractionated) Level (06/16/2023 3:30 AM EDT) UF Heparin 0.64 IU/mL [facility] Comment: Heparin (anti-Xa) levels [...] Lab Terrence Keating MD HEMATOLOGY ORDERABLE S [facility] [place] [address] * Lipid Panel (Reflex Direct LDL) (06/16/2023 3:30 AM EDT) Cholesterol, Total 190 mg/dL [facility] Comment: Desirable: ? <200 mg/dL Borderline High: 200-239 mg/dL Higher: ?>tr=600 mg/dL Triglyceride 126 mg/dL [facility] Comment: Normal: ?<150 mg/dL Borderline High: 150-199 mg/dL High: ?200-499 mg/dL Very High: ? >ow=807 mg/dL HDL Cholesterol 50 mg/dL [facility] Comment: Females: High Risk: <50 mg/dL Males: High Risk: <40 mg/dL LDL Cholesterol 115 mg/dL [facility] Comment: Desirable: ? <100 mg/dL Above Desirable: 100-129 mg/dL Borderline High: 130-159 mg/dL High: ?160-189 mg/dL Very High: ? >fr=656 mg/dL Lipid Interpretation See Note [facility] ACC/AHA Guidelines (most recently Ysabel et al. [facility] 12/09/21): For individuals with atherosclerotic cardiovascular disease (ASCVD)or LDL >ob=047 mg/dL, use a high-intensity statin (40-80 mg [...] In Lab Terrence Keating MD CHEMISTRY ORDERABLES [facility] [place] [address] * (ABNORMAL) Basic Metabolic Panel (non-fasting) (06/15/2023 9:33 PM EDT) Glucose 120 65 - 199 mg/dL [facility] Comment:Diabetes: >=200 mg/d L plus symptoms Blood Urea Nitrogen 29(H) 8 - 18 mg/dL [facility] Creatinine 1.38(H) 0.70 - 1.20 mg/dL [facility] Sodium 135 135 - 145 mmol/L [facility] Potassium 3.1(L) 3.5 - 5.0 mmol/L [facility] Comment: Please note: ??Patients with WBC >100,000 may have falsely elevated Potassium levels. ??For accurate Potassium quantification in these patients send serum separator tube (gold top) for subsequent determinations. ??Contact the Clinical Chemistry Laboratory if there are any questions. Chloride 92(L) 98 - 107 mmol/L [facility] Carbon Dioxide 31 22 - 31 mmol/L [facility] Anion Gap 12 5 - 15 mmol/L [facility] Calcium 9.4 8.5 - 10.5 mg/dL [facility] Est Glomerular Filtration Rate 45(L) >=60 mL/min/1. 73 m?? [facility] MD CHEMISTRY ORDERABL ES Performing Organization Address [facility] Co de Phone Number [facility] [place] [address] * Heparin (unfractionated) Level (06/15/2023 9:33 PM EDT) UF Heparin 0.63 IU/mL [facility] Comment: Heparin (anti-Xa) levels [...] MD HEMATOLOGY ORDERABLE S Performing Organization Address [facility] Co de Phone Number [facility] [place] [address] * (ABNORMAL) Magnesium (06/15/2023 5:47 PM EDT) Magnesium 1.10(H) 0.69 - 1.07 mmol/L [facility] Blood Venous Draw / Unknown 06/15/2023 5:47 PM EDT 06/15/2023 6:10 PM EDT Narrative Resulting Agency Comment Spec In Lab Terrence Keating MD CHEMISTRY ORDERABLES Performing Organization Address City/[facility]/ZIP Co de Phone Number [facility] [place] [address] * (ABNORMAL) Basic Metabolic Panel (non-fasting) (06/15/2023 5:47 PM EDT) Glucose 147 65 - 199 mg/dL [facility] Comment:Diabetes: >=200 mg/d L plus symptoms Blood Urea Nitrogen 29(H) 8 - 18 mg/dL [facility] Creatinine 1.20 0.70 - 1.20 mg/dL [facility] Sodium 134(L) 135 - 145 mmol/L [facility] Potassium 2.9(Criti edy) 3.5 - 5.0 mmol/L [facility] Comment: Called by: dm, Read back by: qamar ren, Date/Time:06/15/23 19:11. Please note: ??Patients with WBC >100,000 may have falsely elevated Potassium levels. ??For accurate Potassium quantification in these patients send serum separator tube (gold top) for subsequent determinations. ??Contact the Clinical Chemistry Laboratory if there are any questions. Chloride 89(L) 98 - 107 mmol/L [facility] Carbon Dioxide 29 22 - 31 mmol/L [facility] Anion Gap 16(H) 5 - 15 mmol/L [facility] Calcium 9.1 8.5 - 10.5 mg/dL [facility] Est Glomerular Filtration Rate 54(L) >=60 mL/min/1. 73 m?? [facility] CHEMISTRY ORDERABL ES [facility] [place] [address] * Rapid Drug Screen w/o Confirmation, Urine (06/15/2023 4:46 PM EDT) Barbiturates Screen, Urine None Detected None Detected [facility] Comment: The barbiturate screen detects barbiturates at concentrations >200 ng/mL. Note: Not all barbiturates cross-react equally with antibody used in this screen. A ? Presumptive Positive? result indicates that the screening result was positive but has not yet been confirmed by a highly-specific method. As with any screen, occasional false positive results from cross-reacting substances may occur. Not for Medico-Legal Purposes. Benzodiazepines Screen, Urine None Detected None Detected [facility] Comment: The benzodiazepines screen detects [...] substances may occur. Not for Medico-Legal Purposes. Cocaine Screen, Urine None Detected None Detected [facility] Comment: The cocaine metabolites screen detects benzoylecgonine (Cocaine Metabolite) at concentrations >150 ng/mL. A ? Presumptive Positive? result indicates that the screening result was positive but has not yet been confirmed by a highly-specific method. As with any screen, occasional false positive results from cross-reacting substances may occur. Not for Medico-Legal Purposes. Methadone Metabolites Screen, Urine None Detected None Detected [facility] Comment: The methadone metabolite screen detects EDDP (major methadone metabolite) at concentrations >100 ng/mL. A ? Presumptive Positive? result indicates that the screening result was positive but has not yet been confirmed by a highly-specific method. As with any screen, occasional false positive results from cross-reacting substances may occur. Not for Medico-Legal Purposes. Opiate Screen, Urine None Detected None Detected [facility] Comment: The opiates screen detects [...] substances may occur. Not for Medico-Legal Purposes. Cannabinoid Screen, Urine None Detected None Detected [facility] Comment: The marijuana metabolites screen detects the THC metabolite ([id number]-carboxy-delta 9-THC) at concentrations >20 ng/mL. A ? Presumptive Positive? result indicates that the screening result was positive but has not yet been confirmed by a highly-specific method. As with any screen, occasional false positive results from cross-reacting substances may occur. Not for Medico-Legal Purposes. Oxycodone Screen, Urine None Detected None Detected [facility] Comment: The oxycodone screen detects oxycodone and oxymorphone at concentrations >100 ng/mL. A ? Presumptive Positive? result indicates that the screening result was positive but has not yet been confirmed by a highly-specific method. As with any screen, occasional false positive results from cross-reacting substances may occur. Not for Medico-Legal Purposes. Buprenorphine Screen, Urine None Detected None Detected [facility] Comment: The buprenorphine screen detects [...] of this test were determined by [facility] in accordance with CLIA requirements. This laboratory is qualified under CLIA to perform high-complexity testing. Fentanyl Screen, Urine None Detected None Detected [facility] Comment: The fentanyl screen detects [...] this test were determined by [facility] in accordance with CLIA requirements. This laboratory is qualified under CLIA to perform high-complexity testing. Tricyclics Screen, Urine None Detected None Detected [facility] Comment: The tricyclics screen detects [...] of this test were determined by [facility] in accordance with CLIA requirements. This laboratory is qualified under CLIA to perform high-complexity testing. Ethanol Screen, Urine None Detected None Detected [facility] Comment:This urine ethanol a ssay detects ethanol at concentrations >/= 100 mg/L. Amphetamines Screen, Urine None Detected None Detected [facility] Comment: The amphetamine screen detects d-amphetamine and d-methamphetamine at concentrations >300 ng/mL. A ? Presumptive Positive? result indicates that the screening result was positive but has not yet been confirmed by a highly-specific method. As with any screen, occasional false positive results from cross-reacting substances may occur. Not for Medico-Legal Purposes. Creatinine Specimen Validity Test, Urine 39 >=20 mg/dL [facility] Chromate Specimen Validity Test, Urine <2.0 <=49.9 mg/L [facility] Nitrite Specimen Validity Test, Urine <50 <=499 mg/L [facility] Oxidant Specimen Validity Test, Urine 12 <=199 mg/L [facility] pH Specimen Validity Test, Urine 5.4 3.0 - 10.9 [facility] Adulterants Screen, Urine None Detected None Detected [facility] Comment:No adulteration of t his urine sample was detected. Urine 06/15/2023 4:46 PM EDT 06/15/2023 5:30 PM EDT Narrative Resulting Agency Comment Spec In Lab Eufemia Copeland MD CHEMISTRY ORDERABL ES Performing Organization Address [facility] Co de Phone Number [facility] [place] [address] * Rapid Drug Screen, Urine (TEE Request) (06/15/2023 4:46 PM EDT) TEE Conf Requested No [facility] TEE Requested See Comment [facility] Comment:Refer to Rapid Drug Screen w/o Confirmation, Urine for results. Urine 06/15/2023 4:46 PM EDT 06/15/2023 5:30 PM EDT Narrative Resulting Agency Comment Spec In Lab Eufemia Copeland MD URINE ORDERABLES Performing Organization Address [facility] de Phone Number [facility] [place] [address] * (ABNORMAL) Basic Metabolic Panel (non-fasting) (06/15/2023 2:29 PM EDT) Glucose 141 65 - 199 mg/dL [facility] Comment:Diabetes: >=200 mg/d L plus symptoms Blood Urea Nitrogen 31(H) 8 - 18 mg/dL [facility] Creatinine 1.21(H) 0.70 - 1.20 mg/dL [facility] Sodium 132(L) 135 - 145 mmol/L [facility] Potassium 3.0(Criti edy) 3.5 - 5.0 mmol/L [facility] Comment: Called by: dm, Read back by: qamar ren, Date/Time:06/15/23 15:18. Please note: ??Patients with WBC >100,000 may have falsely elevated Potassium levels. ??For accurate Potassium quantification in these patients send serum separator tube (gold top) for subsequent determinations. ??Contact the Clinical Chemistry Laboratory if there are any questions. Chloride 89(L) 98 - 107 mmol/L [facility] Carbon Dioxide 32(H) 22 - 31 mmol/L [facility] Anion Gap 11 5 - 15 mmol/L [facility] Calcium 9.6 8.5 - 10.5 mg/dL [facility] Est Glomerular Filtration Rate 53(L) >=60 mL/min/1. 73 m?? [facility] CHEMISTRY ORDERABL ES [facility] [place] [address] * Heparin (unfractionated) Level (06/15/2023 2:29 PM EDT) UF Heparin 0.93 IU/mL [facility] Comment: Heparin (anti-Xa) levels [...] MD HEMATOLOGY ORDERABLE S Performing Organization Address [facility]/ZIP Co de Phone Number [facility] [place] [address] * EKG 12 Lead (06/15/2023 10:50 AM EDT) Ventricular rate 55 BPM MUSE SYSTEM Atrial Rate 55 BPM MUSE SYSTEM P-R Interval 184 ms MUSE SYSTEM QRS Duration 96 ms MUSE SYSTEM Q-T Interval 590 ms MUSE SYSTEM QTC Calculated (Bezet) 565 ms MUSE SYSTEM Calculated P [place] 54 degrees MUSE SYSTEM Calculated R [place] 54 degrees MUSE SYSTEM Calculated [place] 13 degrees MUSE SYSTEM INTERPRETATION Sinus bradycardia with sinus arrhythmia Marked ST abnormality, possible inferior subendocardial injury Long QT interval Abnormal ECG When compared with ECG of 15-JUN-2023 02:17, Nonspecific T wave abnormality has replaced inverted T waves in Lateral leads Confirmed by Kai Haider ([id number]) on 06/16/2023 3:52:04 PM MUSE SYSTEM 06/15/2023 10:5 0 AM EDT 06/16/2023 3:52 PM EDT Terrence Keating MD ECG ORDERABLES Performing Organization Address [facility] Co de Phone Number MUSE SYSTEM * (ABNORMAL) Basic Metabolic Panel (non-fasting) (06/15/2023 8:18 AM EDT) Glucose 113 65 - 199 mg/dL [facility] Comment:Diabetes: >=200 mg/d L plus symptoms Blood Urea Nitrogen 29(H) 8 - 18 mg/dL [facility] Creatinine 1.22(H) 0.70 - 1.20 mg/dL [facility] Sodium 134(L) 135 - 145 mmol/L [facility] Potassium 2.5(Criti edy) 3.5 - 5.0 mmol/L [facility] Comment: Called by: cheryl, Read back by: eamon mckeon, Date/Time:06/15/23 09:34. Please note: ??Patients with WBC >100,000 may have falsely elevated Potassium levels. ??For accurate Potassium quantification in these patients send serum separator tube (gold top) for subsequent determinations. ??Contact the Clinical Chemistry Laboratory if there are any questions. Chloride 89(L) 98 - 107 mmol/L [facility] Carbon Dioxide 30 22 - 31 mmol/L [facility] Anion Gap 15 5 - 15 mmol/L [facility] Calcium 10.0 8.5 - 10.5 mg/dL [facility] Est Glomerular Filtration Rate 53(L) >=60 mL/min/1. 73 m?? [facility] CHEMISTRY ORDERABL ES [facility] [place] [address] * Heparin (unfractionated) Level (06/15/2023 8:18 AM EDT) UF Heparin 0.70 IU/mL [facility] Comment: Heparin (anti-Xa) levels [...] Lab Terrence Keating MD HEMATOLOGY ORDERABLE S [facility] [place] [address] * (ABNORMAL) Troponin (06/15/2023 8:18 AM EDT) Pathologist [facility] Troponin-T, High Sensitivity 33(H) <=14 ng/L [facility] [...] can be found in the [facility] Laboratory Test Catalog Troponin - [facility] Test Catalog Reference: Fourth [place] Definition of Myocardial Infarction. Journal of the [place] [employer] 2018;72:8170-6547 Blood 06/15/2023 8:18 AM EDT 06/15/2023 8:34 AM EDT Narrative Resulting Agency Comment Spec In Lab Terrence Keating MD CHEMISTRY ORDERABLES [facility] [place] [address] * Differential, Automated (06/15/2023 4:28 AM EDT) Neutrophil % 48.0 % [facility] Neutrophil Absolute 3.20 1.70 - 6.10 x10(3)/[facility] Lymph % 35.8 % [facility] Lymphocytes Abs 2.4 0.9 - 3.2 x10(3)/[facility] Monocyte % 11.4 % [facility] Monocyte Abs 0.8 0.3 - 0.9 x10(3[place] [place] % 3.7 % [facility] Eosinophils Abs 0.2 0.0 - 0.4 x10(3)/[facility] Basophil % 1.0 % [facility] Baso Absolute 0.1 0.0 - 0.1 x10(3)/[facility] Immature Gran % 0.10 % [facility] Comment: Immature granulocytes(IG's)percentage and absolute count will include metamyelocytes, myelocytes, and promyelocytes. Blood smears from CBCs yielding IG's will be scanned manually for concordance. If this scan disagrees with the automated IG or if promyelocytes are noted, a manual differential will be performed. Immature Gran Absolute 0.01 0.00 - 0.04 x10(3)/[facility] Blood 06/15/2023 4:28 AM EDT 06/15/2023 4:37 AM EDT Narrative Resulting Agency Comment Spec In Lab Terrence Keating MD HEMATOLOGY ORDERABLE S [facility] [place] [address] * (ABNORMAL) Hemogram (06/15/2023 4:28 AM EDT) White Blood Cell 6.7 4.0 - 9.5 x10(3)/[facility] Red Blood Cell 5.09 4.00 - 5.21 x10(6)/[facility] Hemoglobin 16.1(H) 11.7 - 15.5 g/dL [facility] Hematocrit 48.2(H) 35.7 - 45.8 % [facility] Mean Cell Volume 94.7(H) 82.6 - 94.4 fL [facility] Mean Cell Hemoglobin 31.6 27.1 - 32.0 pg [facility] Mean Cell Hemoglobin Concentration 33.4 31.7 - 35.0 g/dL [facility] Platelet 253 145 - 357 x10(3)/[facility] RDW Standard Deviation 45.5 37.0 - 46.0 [facility] RDW coefficient of variation 13.0 11.5 - 14.1 % [facility] Mean Platelet Volume 10.6 7.6 - 12.9 fL [facility] NRBC% auto 0.0 % [facility] NRBC Absolute 0.000 0.000 - 0.000 x10(3)/[facility] Blood 06/15/2023 4:28 AM EDT 06/15/2023 4:37 AM EDT Narrative Resulting Agency Comment Spec In Lab Terrence Keating MD HEMATOLOGY ORDERABLE S [facility] [place] [address] * (ABNORMAL) Troponin (06/15/2023 4:28 AM EDT) Troponin-T, High Sensitivity 34(H) <=14 ng/L [facility] [...] can be found in the [facility] Test Catalog Troponin - [facility] Test Catalog Reference: Fourth [place] Definition of Myocardial Infarction. Journal of the [place] [employer] 2018;72:1261-5616 Blood 06/15/2023 4:28 AM EDT 06/15/2023 4:37 AM EDT Narrative Resulting Agency Comment Spec In Lab Terrence Keating MD CHEMISTRY ORDERABLES Performing Organization Address City/[facility]/ZIP Co de Phone Number [facility] [place] [address] * (ABNORMAL) Prothrombin Time (06/15/2023 4:28 AM EDT) Prothrombin Time 12.7(H) 9.4 - 12.5 sec [facility] International Normalization Ratio 1.1 [facility] Comment: An [...] MD HEMATOLOGY ORDERABLE S Performing Organization Address City/[facility]/ZIP Co de Phone Number [facility] [place] [address] * (ABNORMAL) Hepatic Function Panel (06/15/2023 4:28 AM EDT) [facility] Protein, Total 7.5 6.1 - 8.0 g/dL [facility] Albumin 4.3 3.2 - 5.2 g/dL [facility] Aspartate Aminotransferase 32(H) 0 - 30 unit/L [facility] Alanine Aminotransferase 26 0 - 30 unit/L [facility] Alkaline Phosphatase 70 35 - 105 unit/L [facility] Bilirubin, Total 0.8 0.2 - 1.3 mg/dL [facility] Bilirubin, Direct 0.1 0.0 - 0.3 mg/dL [facility] Blood 06/15/2023 4:28 AM EDT 06/15/2023 4:37 AM EDT Narrative Resulting Agency Comment Spec In Lab Terrence Keating MD CHEMISTRY ORDERABLES Performing Organization Address [facility]/ZIP Co de Phone Number [facility] [place] [address] * (ABNORMAL) pro-Brain Natriuretic Peptide (06/15/2023 4:28 AM EDT) NT-proBNP 1,953(H) <=124 pg/mL [facility] Blood 06/15/2023 4:28 AM EDT 06/15/2023 4:37 AM EDT Narrative Resulting Agency Comment Spec In Lab Terrence Keating MD CHEMISTRY ORDERABLES Performing Organization Address City/[facility]/ZIP Co de Phone Number [facility] [place] [address] * TSH (06/15/2023 4:28 AM EDT) Thyroid Stimulating Hormone 2.98 0.27 - 4.20 mcIU/mL [facility] Comment: Reference Interval (mcIU/mL): Females: ??First Trimester: 0.23-3.88 ??Second Trimester: 0.22-3.90 ??Third Trimester: 0.44-4.66 Blood 06/15/2023 4:28 AM EDT 06/15/2023 4:37 AM EDT Narrative Resulting Agency Comment Spec In Lab Terrence Keating MD CHEMISTRY ORDERABLES Performing Organization Address [facility] Co de Phone Number [facility] [place] [address] * Phosphorus (06/15/2023 4:28 AM EDT) Phosphorus 4.4 2.5 - 4.5 mg/dL [facility] Blood 06/15/2023 4:28 AM EDT 06/15/2023 4:37 AM EDT Narrative Resulting Agency Comment Spec In Lab Terrence Keating MD CHEMISTRY ORDERABLES Performing Organization Address [facility] Co de Phone Number [facility] [place] [address] * (ABNORMAL) Magnesium (06/15/2023 4:28 AM EDT) Magnesium 1.22(H) 0.69 - 1.07 mmol/L [facility] Blood 06/15/2023 4:28 AM EDT 06/15/2023 4:37 AM EDT Narrative Resulting Agency Comment Spec In Lab Terrence Keating MD CHEMISTRY ORDERABLES Performing Organization Address [facility] Co de Phone Number [facility] [place] [address] * Calcium (06/15/2023 4:28 AM EDT) Calcium 9.7 8.5 - 10.5 mg/dL [facility] Blood 06/15/2023 4:28 AM EDT 06/15/2023 4:37 AM EDT Narrative Resulting Agency Comment Spec In Lab Terrence Keating MD CHEMISTRY ORDERABLES Performing Organization Address [facility] Co de Phone Number [facility] [place] [address] * (ABNORMAL) Basic Metabolic Panel (non-fasting) (06/15/2023 4:28 AM EDT) Glucose 112 65 - 199 mg/dL [facility] Comment:Diabetes: >=200 mg/d L plus symptoms Blood Urea Nitrogen 30(H) 8 - 18 mg/dL [facility] Creatinine 1.24(H) 0.70 - 1.20 mg/dL [facility] Sodium 134(L) 135 - 145 mmol/L [facility] Potassium 2.7(Criti edy) 3.5 - 5.0 mmol/L [facility] Comment: Called by: , Read back by: Olive Hernandez, Date/Time:06/15/23 05:16. Please note: ??Patients with WBC >100,000 may have falsely elevated Potassium levels. ??For accurate Potassium quantification in these patients send serum separator tube (gold top) for subsequent determinations. ??Contact the Clinical Chemistry Laboratory if there are any questions. Chloride 90(L) 98 - 107 mmol/L [facility] Carbon Dioxide 28 22 - 31 mmol/L [facility] Anion Gap 16(H) 5 - 15 mmol/L [facility] Calcium 9.7 8.5 - 10.5 mg/dL [facility] Est Glomerular Filtration Rate 52(L) >=60 mL/min/1. 73 m?? [facility] [...] In Lab Terrence Keating MD CHEMISTRY ORDERABLES [facility] [place] [address] * EKG 12 Lead (06/15/2023 2:17 AM EDT) Ventricular rate 57 BPM MUSE SYSTEM Atrial Rate 57 BPM MUSE SYSTEM P-R Interval 200 ms MUSE SYSTEM QRS Duration 94 ms MUSE SYSTEM Q-T Interval 606 ms MUSE SYSTEM QTC Calculated (Bezet) 591 ms MUSE SYSTEM Calculated P [place] 66 degrees MUSE SYSTEM Calculated R [place] 74 degrees MUSE SYSTEM Calculated T [place] -33 degrees MUSE SYSTEM INTERPRETATION Sinus bradycardia Possible Lateral infarct (cited on or before 17-APR-2023) Marked ST abnormality, possible inferior subendocardial injury Prolonged QTc Abnormal ECG When compared with ECG of 20-APR-2023 10:23, Nonspecific T wave changes QT has lengthened Confirmed by fellow MD Hansa, Sindhu ([id number]) on 06/15/2023 4:36:19 PM Confirmed by MD Angelo Danette ([id number]) on 06/15/2023 4:51:21 PM MUSE SYSTEM 06/15/2023 [...] 10 mL, Oral, ONCE, 1 dose, On Sun /28/24 at 1245, Routine Given 07/04/2023 11:59 AM [...] 25 mg, Intravenous, ONCE, 1 dose, On Wed06/22/23 at 2330, Routine Given 06/22/2023 11:25 PM [...] on 06/20/23 at 0900, Last dose on [place] 06/20/23 at 1700 Given 06/20/2023 8:30 AM [...] CONTINUOUS, Starting on Wed06/22/23 at 2230, Until Aura 06/24/23 at 2020, Begin infusion at 1,000 units [...] CONTINUOUS, Starting on Wed06/16/23 at 1115, Until Aura 06/17/23 at 1319 New Bag 06/16/2023 10:41 AM EDT 250 mLs 1000 mL/hr lactated ringers infusion 250 mL, at 1,000 mL/hr, Intravenous, CONTINUOUS, Starting on Wed06/17/23 at 1415, Until 06/20/23 at 0939 New Bag 06/17/2023 1:36 PM [...] 10 mg, Intravenous, ONCE, 1 dose, On 06/16/23 at 1115, Doses greater than 10mg should [...] (2 times per day), First dose on Wed06/17/23 at 1415, Until Discontinued, Routine Given 06/20/2023 [...] 17 g, Oral, DAILY, First dose on [place] 06/17/23 at 1100, Until Discontinued, Routine Given 07/04/2023 [...] Heidy Paris RN)1332 ([facility] Hold - Provider: Admin Adt - Reason: Transfer to a Procedural area)1548 ([facility] Unhold - Provider: Admin Adt) [...] Wed06/15/23 at 1700, Until Discontinued, Routine 1332 ([facility] Hold - Provider: Admin Adt - Reason: Transfer to a Procedural area)1548 ([facility] Unhold - Provider: Admin Adt)1656 (Given - Provider: Heidy Paris RN) 1708 (Given - Provider: Heidy Paris RN) clopidogreL (Plavix) tablet 75 mg (CANCELED) 75 mg, Oral, DAILY, First dose on Wed07/03/23 at 0900, Until Discontinued, Routine 0854 (Given - Provider: Heidy Paris RN)1332 ([facility] Hold - Provider: Admin Adt - Reason: Transfer to a Procedural area)1548 ([facility] Unhold - Provider: Admin Adt) 0855 (Given - Provider: Heidy Paris RN) 0930 (Given - Provider: Heidy Paris RN) DULoxetine DR (Cymbalta) capsule 60 mg 60 mg, Oral, DAILY, First dose on Wed06/15/23 at 0900, Until Discontinued, Routine 0853 (Given - Provider: Heidy Paris RN)1332 ([facility] Hold - Provider: Admin Adt - Reason: Transfer to a Procedural area)1548 ([facility] Unhold - Provider: Admin Adt) 0856 (Given - Provider: Heidy Paris RN) 0931 (Given - Provider: Heidy Paris RN) gabapentin (Neurontin) capsule 600 mg 600 mg, Oral, NIGHTLY, First dose on Wed06/15/23 at 0200, Until Discontinued, Routine 1332 ([facility] Hold - Provider: Admin Adt - Reason: Transfer to a Procedural area)1548 ([facility] Unhold - Provider: Admin Adt)2136 (Given - Provider: Lorena Torres RN) 2115 (Given - Provider: Machelle Busch RN) [...] Reason: Patient/family refused)1332 ([facility] Hold - Provider: Admin Adt - Reason: Transfer to a Procedural area)1548 ([facility] Unhold - Provider: Admin Adt) 1000 (Not Given - Provider: Heidy Paris RN - Reason: Patient/family refused) 1000 (Not Given - Provider: Heidy Paris RN - Reason: Patient/family refused) melatonin tablet 6 mg 6 mg, Oral, NIGHTLY, First dose on Wed06/15/23 at 0200, Until Discontinued 1332 ([facility] Hold - Provider: Admin Adt - Reason: Transfer to a Procedural area)1548 ([facility] Unhold - Provider: Admin Adt)2136 (Given - Provider: Lorena Torres, ERWIN) 2116 (Given - Provider: Machelle Busch RN) metoprolol succinate XL (Toprol-XL) tablet 12.5 mg 12.5 mg, Oral, DAILY, First dose on Wed06/21/23 at 0900, Until Discontinued, DO NOT CRUSH OR OPEN Hold for HR <55 and Sbp <90, Routine 0854 (Given - Provider: Heidy Paris RN)1332 ([facility] Hold - Provider: Admin Adt - Reason: Transfer to a Procedural area)1548 ([facility] Unhold - Provider: Admin Adt) 0900 (Not Given - Provider: Heidy Paris RN - Reason: Order parameters not met) 0930 (Given - Provider: Heidy Paris RN) pantoprazole EC (Protonix) tablet 40 mg 40 mg, Oral, DAILY, First dose on Wed06/15/23 at 0900, Until Discontinued 0854 (Given - Provider: Heidy Paris RN)1332 ([facility] Hold - Provider: Admin Adt - Reason: Transfer to a Procedural area)1548 ([facility] Unhold - Provider: Admin Adt) 0856 (Given - Provider: Heidy Paris RN) 0931 (Given - Provider: Heidy Pairs RN) polyethylene glycoL (GoLYTELY) BOWEL PREP powder [...] Reason: Patient/family refused)1332 ([facility] Hold - Provider: Admin Adt - Reason: Transfer to a Procedural area)1548 ([facility] Unhold - Provider: Admin Adt) [...] Heidy Paris RN)1332 ([facility] Hold - Provider: Admin Adt - Reason: Transfer to a Procedural area)1548 ([facility] Unhold - Provider: Admin Adt)213 [...] Reason: Patient/family refused)1332 ([facility] Hold - Provider: Admin Adt - Reason: Transfer to a Procedural area)1548 ([facility] Unhold - Provider: Admin Adt) 1000 (Not Given - Provider: Heidy Paris RN - Reason: Patient/family refused) rOPINIRole (Requip) tablet 2 mg 2 mg, Oral, 2 TIMES DAILY, First dose on Wed06/15/23 at 0245, Until Discontinued, Routine 0853 (Given - Provider: Heidy Paris RN)1332 ([facility] Hold - Provider: Admin Adt - Reason: Transfer to a Procedural area)1548 ([facility] Unhold - Provider: Admin Adt)213 (Given - Provider: Lorena Torres, ERWIN) 0856 (Given - Provider: Heidy Paris RN)2115 (Given - Provider: Machelle Busch RN) 0931 (Given - Provider: Heidy Paris RN) senna-docusate (Pericolace) 8.6-50 mg per tablet 2 tablet 2 tablet, Oral, 2 TIMES DAILY, First dose on Wed06/17/23 at 1100, Until Discontinued, Routine 0900 (Not Given - Provider: Heidy Paris RN - Reason: Patient/family refused)1332 ([facility] Hold - Provider: Admin Adt - Reason: Transfer to a Procedural area)1548 ([facility] Unhold - Provider: Admin Adt)2100 [...] Heidy Paris RN)1332 ([facility] Hold - Provider: Admin Adt - Reason: Transfer to a Procedural area)1548 ([facility] Unhold - Provider: Admin Adt)2100 [...] Heidy Paris RN)1332 ([facility] Hold - Provider: Admin Adt - Reason: Transfer to a Procedural area)1548 ([facility] Unhold - Provider: Admin Adt) 0856 (Given - Provider: Heidy Paris RN) 0931 (Given - Provider: Heidy Paris RN) topiramate (Topamax) tablet 100 mg 100 mg, Oral, NIGHTLY, First dose on Wed06/15/23 at 2100, Until Discontinued, Routine 1332 ([facility] Hold - Provider: Admin Adt - Reason: Transfer to a Procedural area)1548 ([facility] Unhold - Provider: Admin Adt)2137 (Given - Provider: Lorena Torres, RN) 2116 (Given - Provider: Machelle Busch RN) Continuous [...] Wheezing, Routine 1332 ([facility] Hold - Provider: Admin Adt - Reason: Transfer to a Procedural area)1548 ([facility] Unhold - Provider: Admin Adt) lidocaine (Xylocaine) 1% (10 mg/mL) injection 3 mg 3 mg (0.3 mL), Subcutaneous, ONCE PRN, 1 dose, Starting on Wed06/15/23 at 0146, Until Wed07/09/23 at 1844, for discomfort with PIV insertion, Routine 1332 ([facility] Hold - Provider: Admin Adt - Reason: Transfer to a Procedural area)1548 ([facility] Unhold - Provider: Admin Adt) loratadine (Claritin) tablet 10 mg 10 mg, Oral, DAILY PRN, Starting on Wed06/15/23 at 0146, Until Wed07/09/23 at 1844, allergies, Routine 1332 ([facility] Hold - Provider: Admin Adt - Reason: Transfer to a Procedural area)1548 ([facility] Unhold - Provider: Admin Adt) nitroGLYcerin (Nitrostat) disintegrating tablet 0.4 mg 0.4 mg, Sublingual, EVERY 5 MIN PRN, Starting on Wed06/22/23 at 1119, Until Wed07/09/23 at 1844, Chest pain, SL nitroglycerin may be repeated every 5 minutes as needed up to 3 doses, Routine 1332 ([facility] Hold - Provider: Admin Adt - Reason: Transfer to a Procedural area)1548 ([facility] Unhold - Provider: Admin Adt) 0951 (Given - Provider: Heidy Paris, ERWIN) ondansetron (pf) (Zofran) (2 mg/mL) injection 4 mg 4 mg, Intravenous, EVERY 8 HOURS PRN, Starting on Wed06/29/23 at 1449, Until Wed07/09/23 at 1844, Nausea 1332 ([facility] Hold - Provider: Admin Adt - Reason: Transfer to a Procedural area)1548 ([facility] Unhold - Provider: Admin Adt)2137 [...] hours., Routine 1332 ([facility] Hold - Provider: Admin Adt - Reason: Transfer to a Procedural area)1548 ([facility] Unhold - Provider: Admin Adt)2137 (Given - Provider: Lorena Torres RN) 0855 (Given - Provider: Heidy Paris RN)2120 (Given - Provider: Machelle Busch RN) simethicone (Gas-X Chew) 80 mg chewable tablet 80 mg 80 mg, Oral, EVERY 6 HOURS PRN, Starting on Wed06/20/23 at 0941, Until Wed07/09/23 at 1844, Cramping, Routine 1332 ([facility] Hold - Provider: Admin Adt - Reason: Transfer to a Procedural area)1548 ([facility] Unhold - Provider: Admin Adt) [...] provided on this medication record., Routine 1332 ([facility] Hold - Provider: Admin Adt - Reason: Transfer to a Procedural area)1548 ([facility] Unhold - Provider: Admin Adt) [...] Intravenous, BOLUS PER HEPARIN PROTOCOL, Starting on 06/28/23 at 1620, Until Wed07/09/23 at 1409, Per [...] Routine documented in this encounter Care Teams Durable Medical Equipment Repairer Relationship Specialty Start Date End Date Polo Pearce PA [address] [place] [address] PCP - General Internal Medicine 06/09/21 documented as of this encounter
--- OUTSIDE RECORDS SUMMARY | 2023-10-20 19:53 | XMS_ITS | Encounter Summary ---
Author Organization [facility] [place] [address] Care Team Providers Care Plastic Tool Maker Name Role Phone Polo Pearce Primary Care Provider [phone] Reason for Referral * Consultation (Routine) - Closed Specialty Diagnoses / Procedures Referred By Jayant harris Referred To Contact Gastroenterology Diagnoses Chronic abdominal pain chronic abd pain after meals Porsha San MD [facility] [place] [address] [facility] [address] [address] Referral ID Status Reason Start Date Expiration Date V isits Requested Visits Authorized [id number] Closed Consult, Test & Treat 07/08/2023 07/07/2024 1 1 Encounter Details Date Type Department Care Team (Late st Contact Info) Description 07/08/2023 Orders [place] [address] Porsha San MD [facility] [place] [address] Chronic abdominal pain Social History [...] AM EDT Hospital Encounter [place] [phone] Mary Reyes APRN [facility] [address] 10/21/2023 11:30 AM EDT Appointment Nuclear Medicine at [place] [phone] Mary Reyes [place] [address] 10/21/2023 12:30 PM EDT Appointment [place] [address] [place] [address] 10/21/2023 1:30 PM EDT Appointment [place] [address] Mary Reyes [place] [address] 10/21/2023 2:30 PM EDT Appointment [place] [address] Mary Reyes [place] [address] 10/26/2023 4:00 PM EDT Office Visit Cardiology at [address] [address] Jaspreet Kinsey MD [facility] [address] 10/28/2023 9:00 AM EDT Office Visit [place] [address] 10/29/2023 10:00 AM EDT Clinical Support [place] [address] 10/29/2023 10:15 AM EDT Procedure visit [place] [address] 11/01/2023 5:00 PM EDT Office [place] [address] Selene Browning, PhD [facility] [place] [address] 11/22/2023 4:40 PM EDT Office Visit Cardiology at [address] [address] Porsha Mcdaniels MD [facility] [place] [address] 12/13/2023 10:00 AM EDT Clinical [place] [address] Lucero Romero, ALVA [facility] [place] [address] Scheduled Referrals Name Type Priority Associated Diagnoses Order Schedule Referral to Gastroenterology Outpatient Referral Routine Chronic abdominal pain Ordered: 07/08/2023 documented as of this encounter Visit Diagnoses Diagnosis Chronic abdominal pain Abdominal pain, unspecified site documented in this encounter Care Teams Plastic Tool Maker Relationship Specialty Start Date End Date Polo Pearce PA [address] [place] [address] PCP - General Internal Medicine 06/09/21 documented as of this encounter
--- OUTSIDE RECORDS SUMMARY | 2023-10-20 19:55 | XMS_ITS | Encounter Summary ---
Author Organization [facility] Address [facility] [place] [address] Care Team Providers Care Specialty Department Supervisor Name Role Phone Polo Pearce Primary Care Provider [phone] Encounter Details Date Type Department Care Team (Latest Contact Info) Description 06/22/2023 Travel Social History Tobacco Use Types Packs/Day Years Used Date Smoking Tobacco: Never Smokeless Tobacco: Never Alcohol Use Standard Drinks/Week Comments Never 0 (1 standard drink = 0.6 oz pur e alcohol) [facility] Utilities Answer Date Recorded In [...] AM EDT Hospital Encounter [place] [address] Mary Reyes SOIL ENGINEER [facility] [address] 10/21/2023 11:30 AM EDT Appointment [place] [address] Mary Reyes SOIL ENGINEER [facility] [address] 10/21/2023 12:30 PM EDT Appointment [place] [address] Mary Reyes SOIL ENGINEER [facility] [address] 10/21/2023 1:30 PM EDT Appointment [place] [address] Mary Reyes SOIL ENGINEER [facility] [address] 10/21/2023 2:30 PM EDT Appointment [place] [address] Mary Reyes SOIL ENGINEER [facility] [address] 10/26/2023 4:00 PM EDT Office Visit Cardiology at [address] [phone] Jaspreet Kinsey MD [facility] [address] 10/28/2023 9:00 AM EDT Office [place] [address] 10/29/2023 10:00 AM EDT Clinical [place] [address] 10/29/2023 10:15 AM EDT Procedure [place] [address] 11/01/2023 5:00 PM EDT Office Visit G[place] [address] Selene Browning, PhD [facility] [place] [address] 11/22/2023 4:40 PM EDT Office Visit Cardiology at [address] [phone] Porsha Mcdaniels MD [facility] [address] 12/13/2023 10:00 AM EDT Clinical Support [place] [address] Lucero Romero, ALVA [facility] [place] [address] documented as of this encounter Visit Diagnoses Not on filedocumented in this encounter Care Teams Specialty Department Supervisor Relationship Specialty Start Date End Date Polo Pearce PA [facility] [address] [place] [address] PCP - General Internal Medicine 06/09/21 documented as of this encounter
--- OUTSIDE RECORDS SUMMARY | 2023-10-20 19:55 | XMS_ITS | Encounter Summary ---
[place] [address] Care Team Providers Care Senior Analyst Developer Name Role Phone Polo Pearce Primary Care Provider [phone] Encounter Details Date Type Department Care Team (Late st Contact Info) Description 06/14/2023 External [place] [phone] Social History Tobacco Use Types Packs/Day Years [...] AM EDT Hospital Encounter [place] [address] [place] [address] 10/21/2023 11:30 AM EDT Appointment [place] [address] Mary Reyes SALES SUPPORT REP [facility] [address] 10/21/2023 12:30 PM EDT Appointment [place] [address] Mary Reyes SALES SUPPORT REP [facility] [address] 10/21/2023 1:30 PM EDT Appointment [place] [address] Mary Reyes APRN [facility] [address] 10/21/2023 2:30 PM EDT Appointment [place] [address] Mary Reyes APRN [facility] [place] [address] 10/26/2023 4:00 PM EDT Office Visit Cardiology at [address] [phone] Jaspreet Kinsey MD [facility] [place] [address] 10/28/2023 9:00 AM EDT Office [place] [address] 10/29/2023 10:00 AM EDT Clinical [place] [address] 10/29/2023 10:15 AM EDT Procedure [place] [address] 11/01/2023 5:00 PM EDT Office [place] [address] Selene Browning, PhD [facility] [place] [address] 11/22/2023 4:40 PM EDT Office Visit Cardiology at [address] [phone] Porsha Mcdaniels MD [facility] [place] [address] 12/13/2023 10:00 AM EDT Clinical [place] [address] [facility] [place] [address] documented as of this encounter Procedures Procedure Name Priority Date/Time Associated Diagnosis Comments ECG SCAN Routine 06/14/2023 11:24 AM EDT documented in this encounter Results * Scan Doc: ECG (06/14/2023 11:24 AM EDT) Historical Provider MEDIA MGR SCAN EX T ORDR/RSLT documented in this encounter Visit Diagnoses Not on filedocumented in this encounter Care Teams Senior Analyst Developer Relationship Specialty Start Date End Date Polo Pearce PA [address] [place] [address] PCP - General Internal Medicine 06/09/21 documented as of this encounter
--- OUTSIDE RECORDS SUMMARY | 2023-10-20 19:55 | XMS_ITS | Encounter Summary ---
Author Organization [facility] Address [facility] [place] [address] Care Team Providers Care Bid Clerk Name Role Phone Polo Pearce Primary Care Provider [phone] Reason for Referral * Consultation (Routine) - Closed Specialty Diagnoses / Procedures Referred By Jayant harris Referred To Contact Cardiology Diagnoses Heart failure with preserved ejection fraction, unspecified HF chronicity [place]. thorough evaluation performed to date. Jaspreet Kinsey MD [facility] [address] Porsha Mcdaniels MD [facility] [place] [address] Referral ID Status Reason Start Date Expiration Date V isits Requested Visits Authorized [id number] Closed Consult, Test & Treat 06/09/2023 06/08/2024 1 1 Encounter Details Date Type Department Care Team (Late st Contact Info) Description 06/09/2023 Telephone Cardiology at [address] [place] [address] Jaspreet Kinsey MD [facility] [place] [address] Social History Tobacco Use Types [...] Havejean pierreo placed referral to cardiology at [facility] for further evaluation of what is termed [...] AM EDT Hospital Encounter [place] [address] Mary Reyes [facility] [place] [address] 10/21/2023 11:30 AM EDT Appointment [place] [address] Mary Reyes APRN [facility] [place] [address] 10/21/2023 12:30 PM EDT Appointment [place] [address] Mary Reyes [facility] [place] [address] 10/21/2023 1:30 PM EDT Appointment [place] [address] [place] [address] 10/21/2023 2:30 PM EDT Appointment [place] [address] [place] [address] 10/26/2023 4:00 PM EDT Office Visit Cardiology at [address] [phone] Jaspreet Kinsey MD [facility] [place] [address] 10/28/2023 9:00 AM EDT Office [place] [address] 10/29/2023 10:00 AM EDT Clinical [place] [address] 10/29/2023 10:15 AM EDT Procedure [place] [address] 11/01/2023 5:00 PM EDT Office Visit [place] [address] Selene Browning, PhD [facility] [address] 11/22/2023 4:40 PM EDT Office Visit Cardiology at [address] [phone] Porsha Mcdaniels MD [facility] [place] [address] 12/13/2023 10:00 AM EDT Clinical Support [place] [address] Lucero Romero, ALVA [facility] [place] [address] Scheduled Referrals Name Type Priority Associated Diagnoses Orde r Schedule Referral to Cardiology Outpatient Referral Routine Heart failure with preserved ejection fraction, unspecified HF chronicity Ordered: 06/09/2023 documented as of this encounter Visit Diagnoses Diagnosis Heart failure with preserved ejection fraction, unspecified HF chronicity documented in this encounter Care Teams Bid Clerk Relationship Specialty Start Date End Date Polo Pearce PA [address] [place] [address] PCP - General Internal Medicine 06/09/21 documented as of this encounter
--- OUTSIDE RECORDS SUMMARY | 2023-10-20 19:55 | XMS_ITS | Encounter Summary ---
Author Organization [facility] Address [facility] [place] [address] Care Team Providers Care Public Relations Counselor Name Role Phone Polo Pearce Primary Care Provider [phone] Encounter Details Date Type Department Care Team (Late st Contact Info) Description 05/28/2023 Telephone Cardiology at [address] [place] [address] Jaspreet Kinsey MD [facility] [place] [address] Social History Tobacco Use Types Packs/Day Years Used Date Smoking Tobacco: Never Smokeless Tobacco: Never Alcohol Use Standard Drinks/Week Comments Never 0 (1 standard drink = 0.6 oz pur e alcohol) [facility] Utilities Answer Date Recorded In the past 12 months has [employer], gas, oil, or water [employer] threatened to shut off services in your [...] in a group home (including now)? No 04/19/2023 DH IPV [...] has gone up. Please call her @ [phone] * Telephone Encounter - Nilda Mayes, RN - 06/04/2023 9:41 AM EDT Next office visit is scheduled Date Visit Type Department Provider 09/22/2023 3:00 PM FOLLOW UP VISIT Cardiology at [place] Arrive at: [facility] [address] Kinsey * Telephone Encounter - Aide Glass - 05/28/2023 10:53 AM EDT Patient had labs done recently. She would like to know what Dr Kinsey thinks about them and what if anything she should be doing. Please call her @ [phone] . documented in this encounter Plan of Treatment Upcoming Encounters Date Type Department Care Team (Late st Contact Info) Description 10/21/2023 10:30 AM EDT Hospital Encounter [place] [address] [place] [address] 10/21/2023 11:30 AM EDT Appointment [place] [address] [place] [address] 10/21/2023 12:30 PM EDT Appointment [place] [address] [place] [address] 10/21/2023 1:30 PM EDT Appointment [place] [address] Mary Reyes [facility] [place] [address] 10/21/2023 2:30 PM EDT Appointment [place] [address] Mary Reyes [facility] [place] [address] 10/26/2023 4:00 PM EDT Office Visit Cardiology at [address] [place] [address] Jaspreet Kinsey MD [facility] [place] [address] 10/28/2023 9:00 AM EDT Office Visit [place] [address] 10/29/2023 10:00 AM EDT Clinical Support [place] [address] 10/29/2023 10:15 AM EDT Procedure [place] [address] 11/01/2023 5:00 PM EDT Office [place] [address] Selene Browning, PhD [facility] [place] [address] 11/22/2023 4:40 PM EDT Office Visit Cardiology at [address] [phone] Porsha Mcdaniels MD [facility] [place] [address] 12/13/2023 10:00 AM EDT Clinical [place] [address] [facility] [place] [address] documented as of this encounter Visit Diagnoses Not on filedocumented in this encounter Care Teams Public Relations Counselor Relationship Specialty Start Date End Date Polo Pearce PA [address] [place] [address] PCP - General Internal Medicine 06/09/21 documented as of this encounter
--- OUTSIDE RECORDS SUMMARY | 2023-10-20 19:55 | XMS_ITS | Encounter Summary ---
[place] [address] Care Team Providers [employer] Name Role Phone Polo Pearce Primary Care Provider [phone] Reason for Visit * Auth/Cert (Routine) Specialty Diagnoses / Procedures Referred By Jayant harris Referred To Contact Diagnoses NSTEMI (non-ST elevated myocardial infarction) NSTEMI Procedures ER Terrence Pantoja MD [facility] [place] [address] [facility] Referral ID Status Reason Start Date Expiration Date Visits Re quested Visits Authorized [id number] 1 1 Encounter Details Date Type Department Care Team (Late st Contact Info) Description 07/07/2023 1:00 PM EDT - 07/07/2023 2:00 PM EDT [place] [address] Lashonda Villa MD [facility] [place] [address] EGD WITH BIOPSY (WRVU 2.39) Social History Tobacco Use Types Packs/Day Years Used Date Smoking Tobacco: Never Smokeless Tobacco: Never Alcohol Use Standard Drinks/Week Comments Never 0 (1 standard drink = 0.6 oz pur e alcohol) [facility] Utilities Answer Date Recorded In the past 12 months has e electric, gas, oil, or water [employer] threatened to shut off services in your [...] Loida Roque Patient Age: 53 y.o. Language: Korean Race: White Ethnicity: Not nor Admit date: 06/14/2023 Discharge date and time: 07/09/2023 3:31 PM Attending Physician: Terrence Keating MD Discharge Physician: Terrence Keating MD Follow-up Recommendations for Providers: Inpatient Provider Contact Information: For questions regarding this document or issues relating to this hospitalization on the Medical Service, please contact your inpatient physician through the [facility] Manager Workers Compensation . Issues afterhours and on weekends will [...] have questions please contact the health rn long term care that requested your imaging first. Abdomen & [...] have questions please contact the health rn long term care that requested your imaging first. Chest One [...] have questions please contact the health rn long term care that requested your imaging first. Abdomen Limited (Exam End: 06/28/2023 12:22 PM) Result Value WORKSTATION ID [id number] Narrative Abdominal (Signed Final 06/28/2023 02:08 pm) PATIENT INFO: ID #: [id number] : [birth year] (53 yrs)(F) Name: LOIDA Visit Date: 06/28/2023 12:20 pm ROHAN PERFORMED BY: Attending: Sirgid Owens MD Resident: Rafaela Huddleston MD Performed By: Deena Cabrera RDMS Referred By: AILYN IRVIN Location: [place] SERVICE(S) PROVIDED: UABDLIM - Abdominal Limited Survey Single [id number] Organ or Quadrant - [id number] INDICATIONS: RUQ pain, R/o Gall bladder colic, [...] have questions, please contact the health rn long term care that requested your imaging first. Sigrid Owens, E Hotel Assistant General Manager Electronically Signed Final Report 06/28/2023 02:08 pm [...] anesthetic: 10 cc 1% lidocaine Heparin: Yes [id number] Units Protamine: No mg Antibiotics: Ancef Fluoro [...] We exchanged the sheath for a 7 Latvian tour escort steerable sheath over a stiff wire. A Glidewire and Kumpe catheter were used to selectively cannulate the superior mesenteric artery. Direct angiography of the superior mesenteric artery was performed, confirming the results of the nonselective aortography performed. The lesion was predilated with a 4 mm x 40 mm [place] balloon, and then a 6 mm X [...] 07/03/2023 3:18 PM) Result Value WORKSTATION ID [id number] Narrative EXAMINATION: XR CHEST ONE VIEW CLINICAL [...] have questions please contact the health rn long term care that requested your imaging first. Echocardiogram from [...] pain. The patient was recently admitted at [facility] from 04/16/23 to 04/19/2023 as a transfer from [facility] due to exertional chest pressure [...] etiology, patient was accepted for transfer to [facility]. Brief Summary: Loida Roque [...] with positive cardiac markers. Patient transferred to [facility] for further work-up and [...] Administered Date(s) Administered Moderna Covid-19 Monovalent 12Yr+ (Sub Master 100mcg) 03/06/2020, 04/03/2020 Discharge Medications: Your Medications [...] weight gain + increasing shortness of breath. [id number] minutes prior to a dose of torsemide). [...] appointments: During 8am-5pm Wednesday through Wednesday call [phone] to speak with a nurse in the cardiology clinic All other times call [phone] and ask to speak to the seam rubber siebel solution architect. Return to work: One week Driving: No driving for 48 hours after catheterization. Follow up Appointments: PCP JOCY Franco [phone] 11:30am on July 19. Cardiology office will call you regarding your appointment with Dr. Kinsey. General Instructions None Future Appointments and Orders Future Appointments and Orders Future Appointments Provider Department Dept Phone 07/26/2023 3:20 PM Jaspreet Kinsey MD Cardiology at [place] Arrive at: [facility] [address] [phone] 07/29/2023 8:00 AM Porsha Mcdaniels MD Cardiology at [facility] Arrive at: Nurse Staff [address] [phone] 08/03/2023 8:30 AM Eladio Boyer Vascular Lab at [facility] Arrive at: Nurse Staff [employer] [address] [phone] 08/03/2023 9:30 AM Judith Butler APRN Vascular Surgery at [facility] Arrive at: Nurse Staff [employer] [address]V [phone] 09/02/2023 2:40 PM Jaspreet Kinsey MD Cardiology at [place] Arrive at: [facility] [address] [phone] Discharge References/Attachments None Greater than 30 minutes was spent on this discharge including documentation, [id number] time withthe patient, patient education, surgical orderly, coordination with pharmacy and other patient care. [...] appointments: During 8am-5pm Wednesday through Wednesday call [phone] to speak with a nurse in the cardiology clinic All other times call [phone] and ask to speak to the seam rubber siebel solution architect. Return to work: One week Driving: No driving for 48 hours after catheterization. Follow up Appointments: PCP JOCY Franco [phone] 11:30am on July 19. Cardiology office will [...] as needed. fluticasone propionate (FLONASE) 50 mcg/actuation [place], Suspension 1 spray by Each Nare route [...] 4pm, per the team. Please refer to: [facility] Care [facility] [address] [facility] [address] PHONE: [phone] FAX: [phone] *For RN RICARDO: 07/09/23 Nani Mendoza MSN-Ed, RN ACM Cardiac Research Nurse and Neuro/Neurocrit/ENT Meteorological Aide. * Mary Castaneda RCP - 07/09/2023 4:37 [...] 1:00 PM EDT [facility]ITALIST 2 - [facility] DAILY PROGRESS NOTE Page [phone] to reach a provider 28/09 Admit Date: [...] with positive cardiac markers. Patient transferred to [facility] for further work-up and [...] prn. Diet: Daily Healthy Menu Choices/Cardiac diet ([facility]-Diet) DVT Prophylaxis: DOAC heparin gtt. 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 Patient transferred to [facility] for further work-up and [...] Score: 24 PT: OT: PCP JOCY Franco [phone] Terrence Keating MD 07/07/2023 * Terrence Keating MD - 07/06/2023 11:00 AM EDT [facility] H[facility]PITALIST 2 - [facility] DAILY PROGRESS NOTE Page [phone] to reach a provider 28/09 Admit Date: [...] with positive cardiac markers. Patient transferred to [facility] for further work-up and [...] hospital Diet: Daily Healthy Menu Choices/Cardiac diet ([facility]-Diet) NPO diet (Give Meds) DVT Prophylaxis: DOAC Code status: Attempt Cardiopulmonary Resuscitation - Inpatient Disposition: Discharge Location: AM-[facility] Basic Mobility Raw Score: 24 PT: OT: PCP JOCY Franco [phone] Terrence Keating MD 07/06/2023 * Ana Paula [...] 11:00 AM EDT [facility] H[facility]PITALIST 2 - [facility] DAILY PROGRESS NOTE Page [phone] to reach a provider 28/09 Admit Date: [...] with positive cardiac markers. Patient transferred to [facility] for further work-up and [...] hospital Diet: Daily Healthy Menu Choices/Cardiac diet ([facility]-Diet) DVT Prophylaxis: DOAC Code status: Attempt Cardiopulmonary Resuscitation - Inpatient Disposition: Discharge Location: AM-PAC Basic Mobility Raw Score: 24 PT: OT: PCP JOCY Franco [phone] Terrence Keating MD 07/05/2023 * Lino Calles MD - 07/04/2023 9:09 AM EDT [facility] H[facility]PITALIST 2 - [facility] DAILY PROGRESS NOTE Page [phone] to reach a provider 28/09 Admit Date: [...] with positive cardiac markers. Patient transferred to [facility] for further work-up and [...] migraine Diet: Daily Healthy Menu Choices/Cardiac diet ([facility]-Diet) DVT Prophylaxis: DOAC Code status: Attempt Cardiopulmonary Resuscitation - Inpatient Disposition: Discharge Location: AM-PAC Basic Mobility Raw Score: 24 PT: OT: PCP JOCY Franco [phone] Lino Calles MD 07/04/2023 * Ana Paula [...] 8:59 AM EDT [facility] H[facility]PITALIST 2 - [facility] DAILY PROGRESS NOTE Page [phone] to reach a provider 28/09 Admit Date: [...] with positive cardiac markers. Patient transferred to [facility] for further work-up and [...] PRN Diet: Daily Healthy Menu Choices/Cardiac diet ([facility]-Diet) DVT Prophylaxis: DOAC Code status: Attempt Cardiopulmonary Resuscitation - Inpatient Disposition: Discharge Location: AM-PAC Basic Mobility Raw Score: 24 PT: OT: PCP JOCY Franco [phone] Lino Calles MD 07/03/2023 * Van Muse [...] 9:55 AM EDT [facility] H[facility]PITALIST 2 - [facility] DAILY PROGRESS NOTE Page [phone] to reach a provider 28/09 Admit Date: [...] with positive cardiac markers. Patient transferred to [facility] for further work-up and [...] PRN Diet: Daily Healthy Menu Choices/Cardiac diet ([facility]-Diet) DVT Prophylaxis: DOAC Code status: Attempt Cardiopulmonary Resuscitation - Inpatient Disposition: Discharge Location: AM-PAC Basic Mobility Raw Score: 24 PT: OT: PCP JOCY Franco [phone] Lino Calles MD 07/02/2023 * Jaspreet Griffith [facility] - 07/02/2023 6:35 AM EDT Respiratory [...] 7:39 AM EDT [facility] H[facility]PITALIST 2 - [facility] DAILY PROGRESS NOTE Page [phone] to reach a provider 28/09 Admit Date: [...] with positive cardiac markers. Patient transferred to [facility] for further work-up and [...] PRN Diet: Daily Healthy Menu Choices/Cardiac diet ([facility]-Diet) NPO diet (Give Meds) DVT Prophylaxis: DOAC Code status: Attempt Cardiopulmonary Resuscitation - Inpatient Disposition: Discharge Location: AM-PAC Basic Mobility Raw Score: 24 PT: OT: PCP JOCY Franco [phone] Terrence Keating MD 07/01/2023 * Terrence Keating MD - 06/30/2023 8:00 AM EDT [facility]IST 2 - [facility] DAILY PROGRESS NOTE Page [phone] to reach a provider 28/09 Admit Date: [...] with positive cardiac markers. Patient transferred to [facility] for further work-up and [...] Score: 24 PT: OT: PCP JOCY Franco [phone] Terrence Keating MD 06/30/2023 * Terrence Keating MD - 06/29/2023 4:29 PM EDT [facility] H[facility]PITALIST 2 - [facility] DAILY PROGRESS NOTE Page [phone] to reach a provider 28/09 Admit Date: [...] with positive cardiac markers. Patient transferred to [facility] for further work-up and [...] Score: 24 PT: OT: PCP JOCY Franco [phone] Terrence Keating MD 06/29/2023 * Jo Ann Sharpe - 06/29/2023 2:54 PM EDT Nutrition Services Note - Low Nutrition Acuity Loida Roque is a 53 y.o. female Reason for intervention: follow up Nutrition Plan: Continue current diet. Encourage good PO intake. Spironolactone noted. Abdominal pain after eating noted. Encouragement and support provided. Pt screened for follow-up visit and writer producer met with Pt at bedside. Pt reported [...] consulted in the interim. Jo Ann Sharpe Regulatory Assistant * Mary Castaneda RCP - 06/29/2023 3:55 [...] 1:53 PM EDT [facility]IST 2 - [facility] DAILY PROGRESS NOTE Page [phone] to reach a provider 28/09 Admit Date: [...] with positive cardiac markers. Patient transferred to [facility] for further work-up and [...] Score: 24 PT: OT: PCP JOCY Franco [phone] * Ailyn Irvin MD - 06/27/2023 9:40 AM EDT [facility] H[facility] 2 - [facility] DAILY PROGRESS NOTE Page [phone] to reach a provider 28/09 Admit Date: [...] with positive cardiac markers. Patient transferred to [facility] for further work-up and [...] Score: 24 PT: OT: PCP JOCY Franco [phone] * Ailyn Irvin MD - 06/26/2023 12:42 PM EDT [facility] H[facility]PITALIST 2 - [facility] DAILY PROGRESS NOTE Page [phone] to reach a provider 28/09 Admit Date: [...] with positive cardiac markers. Patient transferred to [facility] for further work-up and [...] Score: 24 PT: OT: PCP JOCY Franco [phone] * Mitali Manuel RCP - 06/26/2023 5:43 [...] 1:39 PM EDT [facility] H[facility]PITALIST 2 - [facility] DAILY PROGRESS NOTE Page [phone] to reach a provider 28/09 Admit Date: [...] with positive cardiac markers. Patient transferred to [facility] for further work-up and [...] Score: 24 PT: OT: PCP JOCY Franco [phone] * Edith Chandler RCP - 06/24/2023 10:40 [...] 4:38 PM EDT [facility] H[facility]PITALIST 2 - [facility] DAILY PROGRESS NOTE Page [phone] to reach a provider 28/09 Admit Date: [...] with positive cardiac markers. Patient transferred to [facility] for further work-up and [...] Score: 24 PT: OT: PCP JOCY Franco [phone] * Aaron Rosado RCP - 06/24/2023 1:55 [...] 1:03 PM EDT [facility] H[facility]PITALIST 2 - [facility] DAILY PROGRESS NOTE Page [phone] to reach a provider 28/09 Admit Date: [...] with positive cardiac markers. Patient transferred to [facility] for further work-up and [...] Score: 24 PT: OT: PCP JOCY Franco [phone] * Ciera Valdovinos RD - 06/22/2023 2:38 PM EDT Nutrition Services Note - Low Nutrition Acuity Loida Roque is a 53 y.o. female Reason for intervention: hospital day 9 Nutrition Plan: Cardiac Diet Record % PO intake Monitor weight - diuresis noted Patient screened for hospital length of stay nutrition visit, writer producer met with Loida at bedside. Loida reports excellent appetite, eating 100% of meals. She notes that she has not skipped any meals inpatient and has no current nutrition related questions. She notes UBW 217-218 lbs and says that current weight is higher than normal for her. Diuresis noted. Active Orders Diet Daily Healthy Menu Choices/Cardiac diet ([facility]-Diet) Frequency: Effective Now Number [...] 1:35 PM EDT [facility] H[facility]PITALIST 2 - [facility] DAILY PROGRESS NOTE Page [phone] to reach a provider 28/09 Admit Date: [...] have questions please contact the health rn long term care that requested your imaging first. Chest One View (Exam End: 06/22/2023 11:42 AM) Impression No acute pulmonary findings Thank you for letting us participate in the care of this patient. If you are a health care provider and have any questions regarding this report, please contact the number below. For patients who have questions please contact the health rn long term care that requested your imaging first. Assessment: Loida [...] with positive cardiac markers. Patient transferred to [facility] for further work-up and [...] above Diet: Daily Healthy Menu Choices/Cardiac diet ([facility]-Diet) DVT Prophlaxis: eliquis Code status: Attempt Cardiopulmonary Resuscitation - Inpatient Disposition: Discharge Planning: AM-PAC Basic Mobility Raw Score: 24 PT: OT: PCP JOCY Franco [phone] * Eufemia Copeland MD - 06/21/2023 11:02 AM EDT CV H[facility]PITALIST 2 - [facility] DAILY PROGRESS NOTE Page [phone] to reach a provider 28/09 Admit Date: [...] with positive cardiac markers. Patient transferred to [facility] for further work-up and [...] above Diet: Daily Healthy Menu Choices/Cardiac diet ([facility]-Diet) DVT Prophlaxis: eliquis Code status: Attempt Cardiopulmonary Resuscitation - Inpatient Disposition: Discharge Planning: AM-PAC Basic Mobility Raw Score: 24 PT: OT: PCP JOCY Franco [phone] * Eufemia Copeland MD - 06/20/2023 8:06 AM EDT CV H[facility]PITALIST 2 - [facility] DAILY PROGRESS NOTE Page [phone] to reach a provider 28/09 Admit Date: [...] with positive cardiac markers. Patient transferred to [facility] for further work-up and [...] above Diet: Daily Healthy Menu Choices/Cardiac diet ([facility]-Diet) DVT Prophlaxis: eliquis Code status: Attempt Cardiopulmonary Resuscitation - Inpatient Disposition: Discharge Planning: AM-PAC Basic Mobility Raw Score: 24 PT: OT: PCP JOCY Franco [phone] * Eufemia Copeland MD - 06/19/2023 10:00 AM EDT CV H[facility]PITALIST 2 - [facility] DAILY PROGRESS NOTE Page [phone] to reach a provider 28/09 Admit Date: [...] with positive cardiac markers. Patient transferred to [facility] for further work-up and [...] above Diet: Daily Healthy Menu Choices/Cardiac diet ([facility]-Diet) DVT Prophlaxis: eliquis Code status: Attempt Cardiopulmonary Resuscitation - Inpatient Disposition: Discharge Planning: AM-PAC Basic Mobility Raw Score: 24 PT: OT: PCP JOCY Franco [phone] * Eufemia Copeland MD - 06/18/2023 9:02 AM EDT CV HOSPITALIST 2 - [facility] DAILY PROGRESS NOTE Page [phone] to reach a provider 28/09 Admit Date: [...] with positive cardiac markers. Patient transferred to [facility] for further work-up and [...] above Diet: Daily Healthy Menu Choices/Cardiac diet ([facility]-Diet) DVT Prophlaxis: eliquis Code status: Attempt Cardiopulmonary Resuscitation - Inpatient Disposition: Discharge Planning: AM-PAC Basic Mobility Raw Score: 24 PT: OT: PCP JOCY Franco [phone] * Eufemia Copeland MD - 06/17/2023 12:02 PM EDT CV HOSPITALIST 2 - [facility] DAILY PROGRESS NOTE Page [phone] to reach a provider 28/09 Admit Date: [...] with positive cardiac markers. Patient transferred to [facility] for further work-up and [...] above Diet: Daily Healthy Menu Choices/Cardiac diet ([facility]-Diet) DVT Prophlaxis: eliquis Code status: Attempt Cardiopulmonary Resuscitation - Inpatient Disposition: Discharge Planning: AM-PAC Basic Mobility Raw Score: 24 PT: OT: PCP JOCY Franco [phone] * Calista Hernandez, RT - 06/17/2023 4:36 [...] 3:25 PM EDT CV H[facility]PITALIST 2 - [facility] DAILY PROGRESS NOTE Page [phone] to reach a provider 28/09 Admit Date: [...] and SVT ablation on 04/01/[address] [place], paroxysmal A-fib (diagnosed on 10/20/2022), HFpEF, pulmonary emboli on Eliquis, and restrictive lung disease secondary to obesity who presented to OSH with chest pain. Patient has recently undergone extensive workup for ACS that has been unrevealing. 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 The patient current presentation is different with positive cardiac markers. Patient transferred to [facility] for further work-up and [...] above Diet: Daily Healthy Menu Choices/Cardiac diet ([facility]-Diet) DVT Prophlaxis: eliquis Code status: Attempt Cardiopulmonary Resuscitation - Inpatient Disposition: Discharge Planning: AM-PAC Basic Mobility Raw Score: 24 PT: OT: PCP JOCY Franco [phone] documented in this encounter H&P Notes * [...] pain. The patient was recently admitted at [facility] from 04/16/23 to 04/19/2023 as a transfer from [facility] due to exertional chest pressure [...] etiology, patient was accepted for transfer to [facility]. 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 fluticasone propionate (FLONASE) 50 mcg/actuation [place], Suspension 1 spray by Each Nare route [...] for discharge to home with family support, [place] [facility] for RN and OP Cardi clinic for f/u. Needs for Transition of Care: Plan for discharge is: Home w/ Services Outpatient Agency/Support Group Needs: None Home Health Services: Registered Nurse Agency Referrals & Follow-up Care: Contact information for follow-up Home Health & Hospice, [place] [address] [place] [address] Transportation: taxi voucher -Ride confirmed entrance #2 [...] other (see comments) (Has CPAP provided through [facility]) DME Needed at Discharge: none Patient is insured through: Primary Insurance: [employer] [place] Payor: [employer] [place] / Plan[place] / Product Type: *No Product type* / Secondary Insurance: N/A Prescription Coverage: Yes This plan was formulated with input from patient, (please identify family/friend involved if applicable) and team. All are in agreement with plan. Nani Mendoza MSN-Ed, RN ACM Cardiac Research Nurse and Neuro/Neurocrit/ENT Meteorological Aide. * Care Management - Dixie Patterson - 07/09/2023 1:38 PM EDT Transportation for discharge was scheduled and confirmed through [employer]. [employer] will have a local driver here at entrance #2 @4pm to [...] Visceral Aorta 80 16 Celiac Artery, Proximal [place] 119 26 Celiac Artery, Mid [place] 115 21 Celiac Artery, Distal No Vis Sup Mes Artery Proximal [place]ic 427 91 Sup Mes Artery Middle [place] 100 17 Sup Mes Artery Distal [place] 64 15 Hepatic Artery No Vis Splenic [...] sign off at this time, please page [phone] with any questions or concerns. Discussed with [...] Visceral Aorta 80 16 Celiac Artery, Proximal [place] 119 26 Celiac Artery, Mid [place] 115 21 Celiac Artery, Distal No Vis Sup Mes Artery Proximal [place] 427 91 Sup Mes Artery Middle [place] 100 17 Sup Mes Artery Distal [place] 64 15 Hepatic Artery No Vis Splenic [...] duplex Discussed with Dr. Kamara. Please page [phone] with any questions or concerns. 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 At [place], patient should be strict NPO. The plan as outlined above was discussed with Dr. Villa. Recommendations were discussed with primary team. Sis Keenan M.D. Fellow in Gastroenterology and Hepatology Pager #[phone] 07/06/2023 Associated attestation - Lashonda Villa MD [...] Lashonda Villa MD Gastroenterology and hepatology Pager: [phone] * Plan of Care - Olive Hernandez [...] Visceral Aorta 80 16 Celiac Artery, Proximal [place] 119 26 Celiac Artery, Mid [place] 115 21 Celiac Artery, Distal No Vis Sup Mes Artery Proximal [place] 427 91 Sup Mes Artery Middle [place] 100 17 Sup Mes Artery Distal [place] 64 15 Hepatic Artery No Vis Splenic [...] duplex Discussed with Dr. Kamara. Please page [phone] with any questions or concerns. Gauri Vega [...] Visceral Aorta 80 16 Celiac Artery, Proximal [place] 119 26 Celiac Artery, Mid [place] 115 21 Celiac Artery, Distal No Vis Sup Mes Artery Proximal [place] 427 91 Sup Mes Artery Middle [place] 100 17 Sup Mes Artery Distal [place] 64 15 Hepatic Artery No Vis Splenic [...] ASA) Discussed with Dr. Kamara. Please page [phone] with any questions or concerns. Gauri eVga MD 07/03/2023 1:46 PM * Plan of [...] Visceral Aorta 80 16 Celiac Artery, Proximal [place] 119 26 Celiac Artery, Mid [place] 115 21 Celiac Artery, Distal No Vis Sup Mes Artery Proximal [place] 427 91 Sup Mes Artery Middle [place] 100 17 Sup Mes Artery Distal [place] 64 15 Hepatic Artery No Vis Splenic [...] 07/02/[address] Kamara. Please page [phone] with any questions or concerns. Gauri Vega [...] Visceral Aorta 80 16 Celiac Artery, Proximal [place] 119 26 Celiac Artery, Mid [place] 115 21 Celiac Artery, Distal No Vis Sup Mes Artery Proximal [place] 427 91 Sup Mes Artery Middle [place] 100 17 Sup Mes Artery Distal [place] 64 15 Hepatic Artery No Vis Splenic [...] tonight Discussed with Dr. Kamara. Please page [phone] with any questions or concerns. Gauri Vega [...] Visceral Aorta 80 16 Celiac Artery, Proximal [place] 119 26 Celiac Artery, Mid [place] 115 21 Celiac Artery, Distal No Vis Sup Mes Artery Proximal [place] 427 91 Sup Mes Artery Middle [place] 100 17 Sup Mes Artery Distal [place] 64 15 Hepatic Artery No Vis Splenic [...] Visceral Aorta 80 16 Celiac Artery, Proximal [place] 119 26 Celiac Artery, Mid [place] 115 21 Celiac Artery, Distal No Vis Sup Mes Artery Proximal [place] 427 91 Sup Mes Artery Middle [place] 100 17 Sup Mes Artery Distal [place] 64 15 Hepatic Artery No Vis Splenic [...] Dominguez PA - 06/28/2023 8:52 AM EDT [facility] Department of Cardiology Consult [...] consultation required. SUHA LangstonC Cardiovascular Medicine Pager [phone] 06/28/2023 Associated attestation - Klarissa Henderson MD [...] Tellez MD - 06/24/2023 2:14 PM EDT [facility] Department of Cardiology Consult [...] if further consultation required. Alejandro Tellez MD Public Health Professor [phone] Associated attestation - Willy Gómez MD [...] other (see comments) (Has CPAP provided through [facility]) DME Needed at Discharge: No Patient is insured through: Primary Insurance: [employer] [place] Pay[place] [employer] [place] / [place] / [...] of Discharge: 06/26/2023 BEA Killian, RN Inpatient Manager Market Research- Cardiology Office of Care Management Pager #: [phone] * Plan of Care - Alejandro Davenport [...] fraction Overview Note: 05/2021: subacute, presented to [facility] with RUQ pain, weight gain, and [...] Not on file 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 fluticasone propionate (FLONASE) 50 mcg/actuation [place], Suspension 1 spray by Each Nare route [...] other (see comments) (Has CPAP provided through [employer]) DME Needed at Discharge: No Patient is insured through: Primary Insurance: [employer] [place] Pay[place] [employer] [place] / [place] / [...] Anticipated Date of Discharge: 06/23/2023 [place] bolt man Pgr: [phone] * Plan of Care - [...] other (see comments) (Has CPAP provided through [employer]) DME Needed at Discharge: No Patient is insured through: Primary Insurance: [employer] [place] [employer] [place] / Plan: [facility] [place] / Product Type: *No [...] of Discharge: 06/19/2023 BEA Killian, RN Inpatient Manager Market Research- Cardiology Office of Care Management Pager #: [phone] * Plan of Care - Olive Hernandez [...] COVID test: Lab Results Component Value Date [id number] Not Detected 06/13/2021 Past medical History: Past [...] In the past 12 months has the [employer], gas, oil, or water [employer] threatened to shut off services in your [...] medical) Home Address confirmed as: [address] [facility] [address] Social & Family Supports: All names listed [...] Specific Information: Has a CPAP provided by [employer]/Prescription Coverage: Primary Insurance: [employer] [place] Payor: [employer] [place] / Plan: [employer] [place] / Product Type: *No Product type* / Secondary Insurance: N/A ; Prescription Coverage: Yes Preferred Pharmacy: [facility] [address] [address] [facility] [place], [place] - [address] [facility] [address] [facility] [address] [facility] [address] [place] Status: Patient is a : No Primary Care Provider confirmed: JOCY Franco [phone] Patient/Caregiver Goals of Treatment: To figure out what is wrong Potential Needs for Transition of Care: other (see comments) ([facility] help) Agency Referrals: Not Applicable Transportation: no concerns Transportation Anticipated: agency ( can not drive , mother does not drive , Son does not have a car) Concerns to be Addressed: discharge planning Assessment: Patient is admitted to [facility] service for Chest pain Plan: [...] Office of Care Management Float / maritime pilot bolt man [email or web address] Pager #[phone] * Consult Note - Jackie Batres MD - 06/15/2023 11:04 AM EDT [facility] Department of Cardiology Initial [...] her case. She has not had recent bolt man monitoring for arrhythmia, though unlikely, is possible [...] AM EDT Hospital Encounter [place] [address] [facility] [place] [address] 10/21/2023 11:30 AM EDT Appointment [place] [address] [address] [facility] [place] [address] 10/21/2023 12:30 PM EDT Appointment [place] [address] Mary Reyes WRITER PRODUCER [facility] [place] [address] 10/21/2023 1:30 PM EDT Appointment [place] [address] [facility] [place] [address] 10/21/2023 2:30 PM EDT Appointment [place] [address] [place] [address] 10/26/2023 4:00 PM EDT Office Visit Cardiology at [address] [phone] Jaspreet Kinsey MD [facility] [place] [address] 10/28/2023 9:00 AM EDT Office [place] [address] 10/29/2023 10:00 AM EDT Clinical Support [place] [address] 10/29/2023 10:15 AM EDT Procedure visit [place] [address] 11/01/2023 5:00 PM EDT Office [place] [address] Selene Browning, PhD [facility] [place] [address] 11/22/2023 4:40 PM EDT Office Visit Cardiology at [address] [phone] Porsha Mcdaniels MD [facility] [place] [address] 12/13/2023 10:00 AM EDT Clinical [place] [phone] [facility] [place] [address] Scheduled Orders Name Type Priority Associated Diagnoses [...] Routine 07/07/2023 2:25 PM EDT Colonoscopy, Biopsy ([id number]) 07/07/2023 2:10 PM EDT post prandial pain Upper Gi Endoscopy, Biopsy ([id number]) 07/07/2023 2:10 PM EDT post prandial pain [...] 07/07/2023 3:51 AM EDT GIARDIA/CRYPTOSPORIDI UM ANTIGENS ([facility]/CGP/APD/NLH) Routine 07/07/2023 12:38 AM EDT HEPATIC FUNCTION [...] EDT) Glucose 111 65 - 199 mg/dL [facility] Comment:Diabetes: >=200 mg/d L plus symptoms Blood Urea Nitrogen 29(H) 8 - 18 mg/dL [facility] [...] 107 mmol/L [facility] Carbon Dioxide 29 22 - 31 mmol/L [facility] Anion Gap 12 5 - 15 mmol/L [facility] Calcium 10.0 8.5 - 10.5 mg/dL [facility] Est Glomerular Filtration Rate 44(L) >=60 mL/min/1. 73 m?? [facility] [...] CHEMISTRY ORDERABLES [facility] [address] * Differential, Automated (07/09/2023 3:03 AM EDT) Neutrophil % 51.4 % [facility] Neutrophil Absolute 3.43 1.70 - 6.10 x10(3)/[facility] Lymph % 31.4 % [facility] Lymphocytes Abs 2.1 0.9 - 3.2 x10(3)/[facility] Monocyte % 10.1 % [facility] Monocyte Abs 0.7 0.3 - 0.9 x10(3)/[facility] Eos % 6.0 % [facility] Eosinophils Abs 0.4 0.0 - 0.4 x10(3)/[facility] Basophil % 0.8 % [facility] Baso Absolute 0.0 0.0 - 0.1 x10(3)/[facility] Immature Gran % 0.30 % [facility] Comment: Immature granulocytes(IG's)percentage and absolute count will include metamyelocytes, myelocytes, and promyelocytes. Blood smears from CBCs yielding IG's will be scanned manually for concordance. If this scan disagrees with the automated IG or if promyelocytes are noted, a manual differential will be performed. Immature Gran Absolute 0.02 0.00 - 0.04 x10(3)/[facility] Blood 07/09/2023 3:03 AM EDT 07/09/2023 3:14 AM EDT Narrative Resulting Agency Comment Spec In Lab Terrence Keating MD HEMATOLOGY ORDERABLE S [facility] [address] * (ABNORMAL) Hemogram (07/09/2023 3:03 AM EDT) White Blood Cell 6.7 4.0 - 9.5 x10(3)/mc L [facility] Red Blood Cell 3.87(L) 4.00 - 5.21 x10(6)/mc L [facility] Hemoglobin 12.4 11.7 - 15.5 g/dL [facility] Hematocrit 36.8 35.7 - 45.8 % [facility] Mean Cell Volume 95.1(H) 82.6 - 94.4 fL [facility] Mean Cell Hemoglobin 32.0 27.1 - 32.0 pg [facility] Mean Cell Hemoglobin Concentration 33.7 31.7 - 35.0 g/dL [facility] Platelet 209 145 - 357 x10(3)/mc L [facility] RDW Standard Deviation 47.9(H) 37.0 - 46.0 fL [facility] RDW coefficient of variation 13.7 11.5 - 14.1 % [facility] Mean Platelet Volume 10.5 7.6 - 12.9 fL [facility] NRBC% auto 0.0 % [facility] NRBC Absolute 0.000 0.000 - 0.000 x10(3)/mc L [facility] Blood 07/09/2023 3:03 AM EDT 07/09/2023 3:14 AM EDT Narrative Resulting Agency Comment Spec In Lab Terrence Keating MD HEMATOLOGY ORDERABLE S Performing Organization Address City/[facility]/ZIP Co de Phone Number [facility] [address] * Heparin (unfractionated) Level (07/09/2023 3:03 AM EDT) UF Heparin 0.52 IU/mL [facility] Comment: Heparin [...] ORDERABLE S [facility] [place] [address] * (ABNORMAL) Basic Metabolic Panel (non-fasting) (07/09/2023 3:03 AM EDT) Glucose 100 65 - 199 mg/dL [facility] Comment:Diabetes: >=200 mg/d L plus symptoms Blood Urea Nitrogen 12 8 - 18 mg/dL [facility] [...] 107 mmol/L [facility] Carbon Dioxide 22 22 - 31 mmol/L [facility] Anion Gap 12 5 - 15 mmol/L [facility] Calcium 9.3 8.5 - 10.5 mg/dL [facility] Est Glomerular Filtration Rate 52(L) >=60 mL/min/1. 73 m?? [facility] [...] Performing Organization Address [facility]/ZIP Co de Phone Number [facility] [place] [address] * Phosphorus (07/09/2023 3:03 AM EDT) Phosphorus 4.5 2.5 - 4.5 mg/dL [facility] Blood 07/09/2023 3:03 AM EDT 07/09/2023 3:14 AM EDT Narrative Resulting Agency Comment Spec In Lab Eufemia Copeland MD CHEMISTRY ORDERABL ES Performing Organization Address [facility] Co de Phone Number [facility] [address] * Magnesium (07/09/2023 3:03 AM EDT) Magnesium 0.91 0.69 - 1.07 mmol/L [facility] Blood 07/09/2023 3:03 AM EDT 07/09/2023 3:14 AM EDT Narrative Resulting Agency Comment Spec In Lab Eufemia Copeland MD CHEMISTRY ORDERABL ES Performing Organization Address [facility] Co de Phone Number [facility] [place] [address] * Heparin (unfractionated) Level (07/08/2023 12:02 PM EDT) UF Heparin 0.45 IU/mL [facility] Comment: Heparin [...] MD HEMATOLOGY ORDERABLE S Performing Organization Address City/[facility]/ZIP Co de Phone Number [facility] [address] * EKG 12 Lead (07/08/2023 9:58 AM EDT) Ventricular rate 66 BPM MUSE SYSTEM Atrial Rate 66 BPM MUSE SYSTEM P-R Interval 178 ms MUSE SYSTEM QRS Duration 92 ms MUSE SYSTEM Q-T Interval 486 ms MUSE SYSTEM QTC Calculated (Bezet) 509 ms MUSE SYSTEM Calculated P [place] 29 degrees MUSE SYSTEM Calculated R [place] 33 degrees MUSE SYSTEM Calculated T [place] 29 degrees MUSE SYSTEM INTERPRETATION Normal sinus rhythm Nonspecific ST and T wave abnormality Prolonged QT Abnormal ECG When compared with ECG of 04-JUL-2023 11:41, Criteria for Septal infarct are no longer Present I personally reviewed the tracing and edited the fellows interpretation Confirmed by fellow MD Keyshawn, Katalina ([id number]) on 07/08/2023 3:18:07 PM Confirmed by MD Beatriz, Klarissa ([id number]) on 07/09/2023 6:15:21 AM MUSE SYSTEM 07/08/2023 9:58 AM EDT 07/09/2023 6:15 AM EDT Lisa Beck MD ECG ORDERABLES Performing Organization Address City/[facility]/ZIP Co de Phone Number MUSE SYSTEM * Differential, Automated (07/08/2023 5:52 AM EDT) Neutrophil % 60.6 % [facility] Neutrophil Absolute 4.42 1.70 - 6.10 x10(3)/[facility] Lymph % 24.8 % [facility] Lymphocytes Abs 1.8 0.9 - 3.2 x10(3)/[facility] Monocyte % 9.2 % [facility] Monocyte Abs 0.7 0.3 - 0.9 x10(3)/[facility] Eos % 4.5 % [facility] Eosinophils Abs 0.3 0.0 - 0.4 x10(3)/[facility] Basophil % 0.5 % [facility] Baso Absolute 0.0 0.0 - 0.1 x10(3)/[facility] Immature Gran % 0.40 % [facility] Comment: Immature granulocytes(IG's)percentage and absolute count will include metamyelocytes, myelocytes, and promyelocytes. Blood smears from CBCs yielding IG's will be scanned manually for concordance. If this scan disagrees with the automated IG or if promyelocytes are noted, a manual differential will be performed. Immature Gran Absolute 0.03 0.00 - 0.04 x10(3)/[facility] Blood 07/08/2023 5:52 AM EDT 07/08/2023 5:58 AM EDT Narrative Resulting Agency Comment Spec In Lab Terrence Keating MD HEMATOLOGY ORDERABLE S [facility] [address] * (ABNORMAL) Hemogram (07/08/2023 5:52 AM EDT) White Blood Cell 7.3 4.0 - 9.5 x10(3)/mc L [facility] Red Blood Cell 3.94(L) 4.00 - 5.21 x10(6)/mc L [facility] Hemoglobin 12.3 11.7 - 15.5 g/dL [facility] Hematocrit 36.3 35.7 - 45.8 % [facility] Mean Cell Volume 92.1 82.6 - 94.4 fL [facility] Mean Cell Hemoglobin 31.2 27.1 - 32.0 pg [facility] Mean Cell Hemoglobin Concentration 33.9 31.7 - 35.0 g/dL [facility] Platelet 207 145 - 357 x10(3)/mc L [facility] RDW Standard Deviation 44.6 37.0 - 46.0 fL [facility] RDW coefficient of variation 13.3 11.5 - 14.1 % [facility] Mean Platelet Volume 10.5 7.6 - 12.9 fL [facility] NRBC% auto 0.0 % [facility] NRBC Absolute 0.000 0.000 - 0.000 x10(3)/mc L [facility] Blood 07/08/2023 5:52 AM EDT 07/08/2023 5:58 AM EDT Narrative Resulting Agency Comment Spec In Lab Terrence Keating MD HEMATOLOGY ORDERABLE S [facility] [address] * Heparin (unfractionated) Level (07/08/2023 5:52 AM EDT) UF Heparin 0.37 IU/mL [facility] Comment: Heparin [...] ORDERABLE S [facility] [place] [address] * (ABNORMAL) Basic Metabolic Panel (non-fasting) (07/08/2023 5:52 AM EDT) Glucose 102 65 - 199 mg/dL [facility] Comment:Diabetes: >=200 mg/d L plus symptoms Blood Urea Nitrogen 14 8 - 18 mg/dL [facility] [...] 107 mmol/L [facility] Carbon Dioxide 25 22 - 31 mmol/L [facility] Anion Gap 13 5 - 15 mmol/L [facility] Calcium 9.3 8.5 - 10.5 mg/dL [facility] Est Glomerular Filtration Rate 49(L) >=60 mL/min/1. 73 m?? [facility] [...] Performing Organization Address [facility] Co de Phone Number [facility] [address] * Phosphorus (07/08/2023 5:52 AM EDT) Phosphorus 4.3 2.5 - 4.5 mg/dL [facility] Blood 07/08/2023 5:52 AM EDT 07/08/2023 5:58 AM EDT Narrative Resulting Agency Comment Spec In Lab Eufemia Copeland MD CHEMISTRY ORDERABL ES Performing Organization Address [facility] de Phone Number [facility] [address] * Magnesium (07/08/2023 5:52 AM EDT) Magnesium 0.89 0.69 - 1.07 mmol/L [facility] Blood 07/08/2023 5:52 AM EDT 07/08/2023 5:58 AM EDT Narrative Resulting Agency Comment Spec In Lab Eufemia Copeland MD CHEMISTRY ORDERABL ES Performing Organization Address [facility] de Phone Number [facility] [place] [address] * Heparin (unfractionated) Level (07/08/2023 12:00 AM EDT) UF Heparin 0.22 IU/mL [facility] Comment: Heparin [...] ORDERABLE S [facility] [place] [address] * Specimen to Pathology (07/07/2023 2:55 PM EDT) AP Specimen 07/07/2023 2:55 PM EDT 07/07/2023 2:55 PM EDT Narrative [facility] - 07/07/2023 2:55 PM EDT Specimen requisition ordered. ??Separate Pathology report to follow Terrence Keating MD PATHOLOGY/CYTOLOGY O RUMA Performing Organization Address [facility]/[place] [address] * Specimen to Pathology (07/07/2023 2:38 PM EDT) AP Specimen 07/07/2023 2:38 PM EDT 07/07/2023 2:38 PM EDT Narrative [facility] - 07/07/2023 2:38 PM EDT Specimen requisition ordered. ??Separate Pathology report to follow Terrence Keating MD PATHOLOGY/CYTOLOGY O RDADAM Performing Organization Address [facility]/[place] [address] * Specimen to Pathology (07/07/2023 2:38 PM EDT) AP Specimen 07/07/2023 2:38 PM EDT 07/07/2023 2:38 PM EDT Narrative [facility] - 07/07/2023 2:38 PM EDT Specimen requisition ordered. ??Separate Pathology report to follow Terrence Keating MD PATHOLOGY/CYTOLOGY Deyanira HENDRIX [facility] [address] * Surgical Pathology Report (07/07/2023 2:25 PM EDT) Final Diagnosis [id number] ? Location: [facility]; [facility]; A The signing pathologist has (i) [...] Sapna Verified: ??07/19/2023 13:25 ??Pathologist Performed at: ??-[facility] Dept. of Pathology, [place] [address] Dental Claims Processor: Vangie Lu MD, FCAP, ??CLIA Certificate: [id number] SPECIMEN(S) SUBMITTED A - duodenal biopsies rule [...] PM EDT [facility] GI Biopsy 07/07/2023 2:25 PM EDT 07/07/2023 2:25 PM EDT GI Biopsy 07/07/2023 2:25 PM EDT 07/07/2023 2:25 PM EDT GI Biopsy 07/07/2023 2:25 PM EDT 07/07/2023 2:25 PM EDT Lashonda Villa MD PATHOLOGY/CYTOLOGY O RDERABLES [facility] [place] [address] * COLONOSCOPY (07/07/2023 1:39 PM EDT) COLONOSCOPY [facility] Endoscopy Procedure Date: 07/07/2023 1:39 PM ? Patient Name: Loida Roque ? Date of : 1970 ? Age: 53 ? Order #: [id number] ? Instrument Name: [id number]- [id number] ? Procedure: ? Colonoscopy Indications: ? Abdominal pain, Diarrhea Providers: ? Lashonda Villa MD, Porsha ? Mercedes San Lori Agan Referring MD: [...] ? was evaluated using the BBPS ? ([place] Bowel Preparation Scale) ? with scores of: [...] Procedure Code(s): ? --- Professional --- ? 32344, Colonoscopy, flexible; with ? biopsy, single or multiple CPT copyright 2021 [employer]. All rights reserved. The codes documented in this report are preliminary and upon support services rep review may be revised to meet current [...] AL ORDERABLES Performing Organization Address [facility] de Phone Number [facility] [place] [address] * Campylobacter Antigen (07/07/2023 12:10 PM EDT) Campylobacter Ag Immunoassay Negative for Campylobacter Antigen [facility] Stool 07/07/2023 12:1 0 PM EDT 07/07/2023 12:53 PM EDT Narrative Resulting Agency Comment Spec In Lab Ailyn Irvin MD MICROBIOLOGY - GENER AL ORDERABLES Performing Organization Address [facility] Co de Phone Number [facility] [place] [address] * Stool culture (07/07/2023 12:10 PM EDT) Stool Culture No enteric pathogens isolated [facility] Stool 07/07/2023 12:1 0 PM EDT 07/07/2023 12:53 PM EDT Narrative Resulting Agency Comment Spec In Lab Ailyn Irvin MD MICROBIOLOGY - GENER AL ORDERABLES Performing Organization Address [facility] Co de Phone Number [facility] [place] [address] * (ABNORMAL) Differential, Automated (07/07/2023 3:51 AM EDT) [facility] Neutrophil % 58.9 % [facility] Neutrophil Absolute 4.67 1.70 - 6.10 x10(3)/[facility] LABORATORY Lymph % 24.8 % [facility] Lymphocytes Abs 2.0 0.9 - 3.2 x10(3)/[facility] LABORATORY Monocyte % 9.4 % [facility] Monocyte Abs 0.7 0.3 - 0.9 x10(3)/[facility] LABORATORY Eos % 6.1 % [facility] Eosinophils Abs 0.5(H) 0.0 - 0.4 x10(3)/[facility] LABORATORY Basophil % 0.5 % [facility] Baso Absolute 0.0 0.0 - 0.1 x10(3)/[facility] LABORATORY Immature Gran % 0.30 % [facility] Comment: Immature granulocytes(IG's)percentage and absolute count will include metamyelocytes, myelocytes, and promyelocytes. Blood smears from CBCs yielding IG's will be scanned manually for concordance. If this scan disagrees with the automated IG or if promyelocytes are noted, a manual differential will be performed. Immature Gran Absolute 0.02 0.00 - 0.04 x10(3)/[facility] LABORATORY Blood 07/07/2023 3:51 AM EDT 07/07/2023 4:08 AM EDT Narrative Resulting Agency Comment Spec In Lab Terrence Keating MD HEMATOLOGY ORDERABLE S [facility] [place] [address] * Hemogram (07/07/2023 3:51 AM EDT) [facility] White Blood Cell 7.9 4.0 - 9.5 x10(3)/[facility] LABORATORY Red Blood Cell 4.42 4.00 - 5.21 x10(6)/[facility] LABORATORY Hemoglobin 13.8 11.7 - 15.5 g/dL [facility] Hematocrit 41.0 35.7 - 45.8 % [facility] Mean Cell Volume 92.8 82.6 - 94.4 fL [facility] Mean Cell Hemoglobin 31.2 27.1 - 32.0 pg [facility] Mean Cell Hemoglobin Concentration 33.7 31.7 - 35.0 g/dL [facility] Platelet 255 145 - 357 x10(3)/[facility] LABORATORY RDW Standard Deviation 44.8 37.0 - 46.0 fL [facility] RDW coefficient of variation 13.2 11.5 - 14.1 % [facility] Mean Platelet Volume 10.6 7.6 - 12.9 fL [facility] NRBC% auto 0.0 % [facility] NRBC Absolute 0.000 0.000 - 0.000 x10(3)/[facility] LABORATORY Blood 07/07/2023 3:51 AM EDT 07/07/2023 4:08 AM EDT Narrative Resulting Agency Comment Spec In Lab Terrence Keating MD HEMATOLOGY ORDERABLE S [facility] [place] [address] * Heparin (unfractionated) Level (07/07/2023 3:51 AM EDT) UF Heparin 0.33 IU/mL [facility] Comment: Heparin [...] ORDERABLE S [facility] [place] [address] * (ABNORMAL) Basic Metabolic Panel (non-fasting) (07/07/2023 3:51 AM EDT) Glucose 101 65 - 199 mg/dL [facility] Comment:Diabetes: >=200 mg/d L plus symptoms Blood Urea Nitrogen 18 8 - 18 mg/dL [facility] [...] 107 mmol/L [facility] Carbon Dioxide 23 22 - 31 mmol/L [facility] Anion Gap 16(H) 5 - 15 mmol/L [facility] Calcium 9.4 8.5 - 10.5 mg/dL [facility] Est Glomerular Filtration Rate 49(L) >=60 mL/min/1. 73 m?? [facility] [...] Performing Organization Address [facility] Co de Phone Number [facility] [address] * Phosphorus (07/07/2023 3:51 AM EDT) Phosphorus 4.0 2.5 - 4.5 mg/dL [facility] Blood 07/07/2023 3:51 AM EDT 07/07/2023 4:08 AM EDT Narrative Resulting Agency Comment Spec In Lab Eufemia Copeland MD CHEMISTRY ORDERABL ES Performing Organization Address [facility] Co de Phone Number [facility] [address] * Magnesium (07/07/2023 3:51 AM EDT) Magnesium 0.87 0.69 - 1.07 mmol/L [facility] Blood 07/07/2023 3:51 AM EDT 07/07/2023 4:08 AM EDT Narrative Resulting Agency Comment Spec In Lab Eufemia Copeland MD CHEMISTRY ORDERABL ES Performing Organization Address [facility] Co de Phone Number [facility] [address] * Hepatic Function Panel (07/07/2023 3:51 AM EDT) Protein, Total 7.5 6.1 - 8.0 g/dL [facility] Albumin 4.4 3.2 - 5.2 g/dL [facility] Aspartate Aminotransferase 15 0 - 30 unit/L [facility] Alanine Aminotransferase 20 0 - 30 unit/L [facility] Alkaline Phosphatase 54 35 - 105 unit/L [facility] Bilirubin, Total 0.4 0.2 - 1.3 mg/dL [facility] Bilirubin, Direct 0.1 0.0 - 0.3 mg/dL [facility] Blood 07/07/2023 3:51 AM EDT 07/07/2023 4:08 AM EDT Narrative Resulting Agency Comment Spec In Lab Ailyn Irvin MD CHEMISTRY ORDERABLES Performing Organization Address City/[facility]/ZIP Co de Phone Number [facility] [place] [address] * Giardia/Cryptosporidium Antigens ([facility] [place] [facility]/CGP/APD/NLH) (07/07/2023 12:38 AM EDT) Giardia Antigen Negative Negative [facility] Comment:Examination for othe r intestinal parasites requires foreign travel history. Cryptosporidium Antigen Negative Negative [facility] Stool 07/07/2023 12:3 8 AM EDT 07/07/2023 7:56 AM EDT Narrative Resulting Agency Comment Spec In Lab Ailyn Irvin MD MICROBIOLOGY - GENER AL ORDERABLES [facility] [place] [address] * Hepatic Function Panel (07/06/2023 3:41 PM EDT) Protein, Total 7.6 6.1 - 8.0 g/dL [facility] Albumin 4.3 3.2 - 5.2 g/dL [facility] Aspartate Aminotransferase 20 0 - 30 unit/L [facility] Alanine Aminotransferase 22 0 - 30 unit/L [facility] Alkaline Phosphatase 58 35 - 105 unit/L [facility] Bilirubin, Total 0.4 0.2 - 1.3 mg/dL [facility] Bilirubin, Direct 0.1 0.0 - 0.3 mg/dL [facility] Blood 07/06/2023 3:41 PM EDT 07/06/2023 4:00 PM EDT Narrative Resulting Agency Comment Spec In Lab Terrence Keating MD CHEMISTRY ORDERABLES Performing Organization Address City/[facility]/ZIP Co de Phone Number [facility] [address] * Hepatic Function Panel (07/06/2023 3:54 AM EDT) Protein, Total 7.6 6.1 - 8.0 g/dL [facility] Albumin 4.3 3.2 - 5.2 g/dL [facility] Aspartate Aminotransferase Not Perf 0 - 30 [facility] Comment: Unable to quantitate due to sample hemolysis. ??Sample redraw suggested. Called by: [email or web address], Read back by: Ana Paula Borja, Date/Time:07/06/23 14:08. Alanine Aminotransferase 25 0 - 30 unit/L [facility] Alkaline Phosphatase 58 35 - 105 unit/L [facility] Bilirubin, Total 0.4 0.2 - 1.3 mg/dL [facility] Bilirubin, Direct Not Perf 0.0 - 0.3 [facility] Blood Venous Draw / Unknown 07/06/2023 3:54 AM EDT 07/06/2023 4:18 AM EDT Narrative Resulting Agency Comment Spec In Lab Terrence Keating MD CHEMISTRY ORDERABLES Performing Organization Address City/[facility]/ZIP Co de Phone Number [facility] [place] [address] * (ABNORMAL) Differential, Automated (07/06/2023 3:54 AM EDT) Neutrophil % 56.6 % [facility] Neutrophil Absolute 4.34 1.70 - 6.10 x10(3)/[facility] LABORATORY Lymph % 26.1 % [facility] Lymphocytes Abs 2.0 0.9 - 3.2 x10(3)/[facility] LABORATORY Monocyte % 9.6 % [facility] Monocyte Abs 0.7 0.3 - 0.9 x10(3)/[facility] LABORATORY Eos % 6.6 % [facility] Eosinophils Abs 0.5(H) 0.0 - 0.4 x10(3)/[facility] LABORATORY Basophil % 0.7 % [facility] Baso Absolute 0.0 0.0 - 0.1 x10(3)/[facility] LABORATORY Immature Gran % 0.40 % [facility] Comment: Immature granulocytes(IG's)percentage and absolute count will include metamyelocytes, myelocytes, and promyelocytes. Blood smears from CBCs yielding IG's will be scanned manually for concordance. If this scan disagrees with the automated IG or if promyelocytes are noted, a manual differential will be performed. Immature Gran Absolute 0.03 0.00 - 0.04 x10(3)/[facility] LABORATORY Blood 07/06/2023 3:54 AM EDT 07/06/2023 4:12 AM EDT Narrative Resulting Agency Comment Spec In Lab Terrence Keating MD HEMATOLOGY ORDERABLE S [facility] [address] * (ABNORMAL) Hemogram (07/06/2023 3:54 AM EDT) White Blood Cell 7.7 4.0 - 9.5 x10(3)/[facility] LABOR[facility]ORY Red Blood Cell 4.62 4.00 - 5.21 x10(6)/mc L [facility] Hemoglobin 14.7 11.7 - 15.5 g/dL [facility] Hematocrit 43.8 35.7 - 45.8 % [facility] Mean Cell Volume 94.8(H) 82.6 - 94.4 fL [facility] Mean Cell Hemoglobin 31.8 27.1 - 32.0 pg [facility] Mean Cell Hemoglobin Concentration 33.6 31.7 - 35.0 g/dL [facility] Platelet 243 145 - 357 x10(3)/mc L [facility] RDW Standard Deviation 47.2(H) 37.0 - 46.0 [facility] LABORATORY RDW coefficient of variation 13.5 11.5 - 14.1 % [facility] Mean Platelet Volume 10.4 7.6 - 12.9 [facility] LABORATORY NRBC% auto 0.0 % [facility] NRBC Absolute 0.000 0.000 - 0.000 x10(3)/mc L [facility] Blood 07/06/2023 3:54 AM EDT 07/06/2023 4:12 AM EDT Narrative Resulting Agency Comment Spec In Lab Terrence Keating MD HEMATOLOGY ORDERABLE S Performing Organization Address City/State/[facility] Co de Phone Number [facility] [address] * (ABNORMAL) Basic Metabolic Panel (non-fasting) (07/06/2023 3:54 AM EDT) Glucose 107 65 - 199 mg/dL [facility] Comment:Diabetes: >=200 mg/d L plus symptoms Blood Urea Nitrogen 16 8 - 18 mg/dL [facility] [...] 107 mmol/L [facility] Carbon Dioxide 23 22 - 31 mmol/L [facility] Anion Gap 14 5 - 15 mmol/L [facility] Calcium 10.0 8.5 - 10.5 mg/dL [facility] Est Glomerular Filtration Rate 51(L) >=60 mL/min/1. 73 m?? [facility] [...] ORDERABL ES [facility] [address] * Phosphorus (07/06/2023 3:54 AM EDT) Phosphorus 4.5 2.5 - 4.5 mg/dL [facility] Blood 07/06/2023 3:54 AM EDT 07/06/2023 4:18 AM EDT Narrative Resulting Agency Comment Spec In Lab Eufemia Copeland MD CHEMISTRY ORDERABL ES Performing Organization Address [facility]/ZIP Co de Phone Number [facility] [address] * Magnesium (07/06/2023 3:54 AM EDT) Magnesium 0.97 0.69 - 1.07 mmol/L [facility] Blood 07/06/2023 3:54 AM EDT 07/06/2023 4:18 AM EDT Narrative Resulting Agency Comment Spec In Lab Eufemia Copeland MD CHEMISTRY ORDERABL ES Performing Organization Address [facility] Co de Phone Number [facility] [address] * Heparin (unfractionated) Level (07/06/2023 3:54 AM EDT) UF Heparin 0.31 IU/mL [facility] Comment: Heparin [...] MD HEMATOLOGY ORDERABLE S Performing Organization Address City/[facility] Co de Phone Number [facility] [address] * Amylase (07/05/2023 5:44 PM EDT) Amylase 35 28 - 100 unit/L [facility] Blood 07/05/2023 5:44 PM EDT 07/05/2023 6:00 PM EDT Narrative Resulting Agency Comment Spec In Lab Terrence Keating MD CHEMISTRY ORDERABLES Performing Organization Address [facility] Co de Phone Number [facility] [address] * Lipase (07/05/2023 5:44 PM EDT) Lipase 17 0 - 60 unit/L [facility] Blood 07/05/2023 5:44 PM EDT 07/05/2023 6:00 PM EDT Narrative Resulting Agency Comment Spec In Lab Terrence Keating MD CHEMISTRY ORDERABLES Performing Organization Address [facility] Co de Phone Number [facility] [address] * (ABNORMAL) Basic Metabolic Panel (non-fasting) (07/05/2023 5:44 PM EDT) Pathologist [facility] Glucose 130 65 - 199 mg/dL [facility] Comment:Diabetes: >=200 mg/d L plus symptoms Blood Urea Nitrogen 17 8 - 18 mg/dL [facility] [...] 107 mmol/L [facility] Carbon Dioxide 21(L) 22 - 31 mmol/L [facility] Anion Gap 15 5 - 15 mmol/L [facility] Calcium 9.6 8.5 - 10.5 mg/dL [facility] Est Glomerular Filtration Rate 49(L) >=60 mL/min/1. 73 m?? [facility] [...] CHEMISTRY ORDERABLES [facility] [place] [id number] * Duplex Study Visceral Arteries, Comp (07/05/2023 9:46 AM EDT) VB Text Report Department: Vascular Surgery Lab Patient: [id number] (LOIDA ROQUE) CPT: [id number] Referring Physician: TERRENCE KEATING ?? Phone: Indications: [...] ?Bi-Triphasic ?101 ?11 ?? Hepatic Artery ? [place]-Biphasic ? 123 ?23 ?? Splenic Artery ? [place]-Biphasic ? 122 ?24 ?? Inf Mes Artery [...] * Differential, Automated (07/05/2023 5:05 AM EDT) Pathologist [facility] Neutrophil % 63.0 % [facility] Neutrophil Absolute 5.59 1.70 - 6.10 x10(3)/[facility] LABORATORY Lymph % 22.4 % [facility] Lymphocytes Abs 2.0 0.9 - 3.2 x10(3)/[facility] LABORATORY Monocyte % 9.7 % [facility] Monocyte Abs 0.9 0.3 - 0.9 x10(3)/[facility] LABORATORY Eos % 4.1 % [facility] Eosinophils Abs 0.4 0.0 - 0.4 x10(3)/[facility] LABOR[facility]ORY Basophil % 0.6 % [facility] Baso Absolute 0.0 0.0 - 0.1 x10(3)/[facility] LABORATORY Immature Gran % 0.20 % [facility] Comment: Immature granulocytes(IG's)percentage and absolute count will include metamyelocytes, myelocytes, and promyelocytes. Blood smears from CBCs yielding IG's will be scanned manually for concordance. If this scan disagrees with the automated IG or if promyelocytes are noted, a manual differential will be performed. Immature Gran Absolute 0.02 0.00 - 0.04 x10(3)/[facility] LABORATORY Blood 07/05/2023 5:05 AM EDT 07/05/2023 5:17 AM EDT Narrative Resulting Agency Comment Spec In Lab Terrence Keating MD HEMATOLOGY ORDERABLE S [facility] [address] * (ABNORMAL) Hemogram (07/05/2023 5:05 AM EDT) Pathologist [facility] White Blood Cell 8.9 4.0 - 9.5 x10(3)/mc L [facility] Red Blood Cell 4.42 4.00 - 5.21 x10(6)/mc L [facility] Hemoglobin 13.7 11.7 - 15.5 g/dL [facility] Hematocrit 41.4 35.7 - 45.8 % [facility] Mean Cell Volume 93.7 82.6 - 94.4 fL [facility] Mean Cell Hemoglobin 31.0 27.1 - 32.0 pg [facility] Mean Cell Hemoglobin Concentration 33.1 31.7 - 35.0 g/dL [facility] Platelet 245 145 - 357 x10(3)/mc L [facility] RDW Standard Deviation 47.1(H) 37.0 - 46.0 fL [facility] RDW coefficient of variation 13.7 11.5 - 14.1 % [facility] Mean Platelet Volume 10.8 7.6 - 12.9 fL [facility] NRBC% auto 0.0 % [facility] NRBC Absolute 0.000 0.000 - 0.000 x10(3)/ L [facility] Blood 07/05/2023 5:05 AM EDT 07/05/2023 5:17 AM EDT Narrative Resulting Agency Comment Spec In Lab Terrence Keating MD HEMATOLOGY ORDERABLE S [facility] [place] [address] * Heparin (unfractionated) Level (07/05/2023 5:05 AM EDT) Pathologist [facility] UF Heparin 0.35 IU/mL [facility] Comment: Heparin [...] ORDERABLE S [facility] [address] * (ABNORMAL) Basic Metabolic Panel (non-fasting) (07/05/2023 5:05 AM EDT) Glucose 114 65 - 199 mg/dL [facility] Comment:Diabetes: >=200 mg/d L plus symptoms Blood Urea Nitrogen 19(H) 8 - 18 mg/dL [facility] [...] 107 mmol/L [facility] Carbon Dioxide 25 22 - 31 mmol/L [facility] Anion Gap 12 5 - 15 mmol/L [facility] Calcium 10.0 8.5 - 10.5 mg/dL [facility] Est Glomerular Filtration Rate 41(L) >=60 mL/min/1. 73 m?? [facility] [...] CHEMISTRY ORDERABL ES Performing Organization Address [facility] de Phone Number [facility] [address] * (ABNORMAL) Phosphorus (07/05/2023 5:05 AM EDT) Phosphorus 5.0(H) 2.5 - 4.5 mg/dL [facility] Blood 07/05/2023 5:05 AM EDT 07/05/2023 5:17 AM EDT Narrative Resulting Agency Comment Spec In Lab Eufemia Copeland MD CHEMISTRY ORDERABL ES Performing Organization Address [facility] de Phone Number [facility] [address] * Magnesium (07/05/2023 5:05 AM EDT) Magnesium 1.01 0.69 - 1.07 mmol/L [facility] Blood 07/05/2023 5:05 AM EDT 07/05/2023 5:17 AM EDT Narrative Resulting Agency Comment Spec In Lab Eufemia Copeland MD CHEMISTRY ORDERABL ES Performing Organization Address [facility]/ZIP Co de Phone Number [facility] [address] * EKG 12 Lead (07/04/2023 11:41 AM EDT) Ventricular rate 76 BPM MUSE SYSTEM Atrial Rate 76 BPM MUSE SYSTEM P-R Interval 174 ms MUSE SYSTEM QRS Duration 88 ms MUSE SYSTEM Q-T Interval 450 ms MUSE SYSTEM QTC Calculated (Bezet) 506 ms MUSE SYSTEM Calculated P [place] 36 degrees MUSE SYSTEM Calculated R [place] 35 degrees MUSE SYSTEM Calculated T [place] 37 degrees MUSE SYSTEM INTERPRETATION Normal sinus [...] Beck MD ECG ORDERABLES Performing Organization Address [facility]/ZIP Co de Phone Number MUSE SYSTEM * Differential, Automated (07/04/2023 3:47 AM EDT) Pathologist [facility] Neutrophil % 63.5 % [facility] Neutrophil Absolute 5.19 1.70 - 6.10 x10(3)/[facility] LABORATORY Lymph % 24.4 % [facility] Lymphocytes Abs 2.0 0.9 - 3.2 x10(3)/[facility] LABORATORY Monocyte % 8.1 % [facility] Monocyte Abs 0.7 0.3 - 0.9 x10(3)/[facility] LABORATORY Eos % 3.4 % [facility] Eosinophils Abs 0.3 0.0 - 0.4 x10(3)/[facility] LABORATORY Basophil % 0.4 % [facility] Baso Absolute 0.0 0.0 - 0.1 x10(3)/[facility] LABORATORY Immature Gran % 0.20 % [facility] Comment: Immature granulocytes(IG's)percentage and absolute count will include metamyelocytes, myelocytes, and promyelocytes. Blood smears from CBCs yielding IG's will be scanned manually for concordance. If this scan disagrees with the automated IG or if promyelocytes are noted, a manual differential will be performed. Immature Gran Absolute 0.02 0.00 - 0.04 x10(3)/mcL [facility] Blood 07/04/2023 3:47 AM EDT 07/04/2023 4:15 AM EDT Narrative Resulting Agency Comment Spec In Lab Terrence Keating MD HEMATOLOGY ORDERABLE S [facility] [address] * (ABNORMAL) Hemogram (07/04/2023 3:47 AM EDT) White Blood Cell 8.2 4.0 - 9.5 x10(3)/mc L [facility] Red Blood Cell 4.26 4.00 - 5.21 x10(6)/mc L [facility] Hemoglobin 13.5 11.7 - 15.5 g/dL [facility] Hematocrit 40.0 35.7 - 45.8 % [facility] Mean Cell Volume 93.9 82.6 - 94.4 fL [facility] Mean Cell Hemoglobin 31.7 27.1 - 32.0 pg [facility] Mean Cell Hemoglobin Concentration 33.8 31.7 - 35.0 g/dL [facility] Platelet 219 145 - 357 x10(3)/mc L [facility] RDW Standard Deviation 47.0(H) 37.0 - 46.0 fL [facility] RDW coefficient of variation 13.7 11.5 - 14.1 % [facility] Mean Platelet Volume 11.0 7.6 - 12.9 fL [facility] NRBC% auto 0.0 % [facility] NRBC Absolute 0.000 0.000 - 0.000 x10(3)/mc L [facility] Blood 07/04/2023 3:47 AM EDT 07/04/2023 4:15 AM EDT Narrative Resulting Agency Comment Spec In Lab Terrence Keating MD HEMATOLOGY ORDERABLE S Performing Organization Address [facility] Co de Phone Number [facility] [place] [address] * Heparin (unfractionated) Level (07/04/2023 3:47 AM EDT) UF Heparin 0.44 IU/mL [facility] Comment: Heparin [...] Performing Organization Address [facility]/ZIP Co de Phone Number [facility] [place] [address] * (ABNORMAL) Basic Metabolic Panel (non-fasting) (07/04/2023 3:47 AM EDT) Glucose 104 65 - 199 mg/dL [facility] Comment:Diabetes: >=200 mg/d L plus symptoms Blood Urea Nitrogen 16 8 - 18 mg/dL [facility] 107 mmol/L [facility] Carbon Dioxide 21(L) 22 - 31 mmol/L [facility] Anion Gap 16(H) 5 - 15 mmol/L [facility] Calcium 9.5 8.5 - 10.5 mg/dL [facility] Est Glomerular Filtration Rate 50(L) >=60 mL/min/1. 73 m?? [facility] [...] ORDERABL ES [facility] [place] [address] * (ABNORMAL) Phosphorus (07/04/2023 3:47 AM EDT) Phosphorus 4.9(H) 2.5 - 4.5 mg/dL [facility] Blood 07/04/2023 3:47 AM EDT 07/04/2023 4:15 AM EDT Narrative Resulting Agency Comment Spec In Lab Eufemia Copeland MD CHEMISTRY ORDERABL ES Performing Organization Address [facility] [place] [address] * Magnesium (07/04/2023 3:47 AM EDT) Magnesium 1.05 0.69 - 1.07 mmol/L [facility] Blood 07/04/2023 3:47 AM EDT 07/04/2023 4:15 AM EDT Narrative Resulting Agency Comment Spec In Lab Eufemia Copeland MD CHEMISTRY ORDERABL ES Performing Organization Address [facility] Phone Number [facility] [place] [address] * EKG 12 Lead (07/03/2023 9:36 PM EDT) Ventricular rate 61 BPM MUSE SYSTEM Atrial Rate 61 BPM MUSE SYSTEM P-R Interval 188 ms MUSE SYSTEM QRS Duration 88 ms MUSE SYSTEM Q-T Interval 512 ms MUSE SYSTEM QTC Calculated (Bezet) 515 ms MUSE SYSTEM Calculated P [place] 56 degrees MUSE SYSTEM Calculated R [place] 69 degrees MUSE SYSTEM Calculated T [place] 29 degrees MUSE SYSTEM INTERPRETATION Normal sinus [...] CHEMISTRY ORDERABLES [facility] [place] [address] * (ABNORMAL) Basic Metabolic Panel (non-fasting) (07/03/2023 6:00 PM EDT) Glucose 116 65 - 199 mg/dL [facility] Comment:Diabetes: >=200 mg/d L plus symptoms Blood Urea Nitrogen 16 8 - 18 mg/dL [facility] [...] 107 mmol/L [facility] Carbon Dioxide 21(L) 22 - 31 mmol/L [facility] Anion Gap 14 5 - 15 mmol/L [facility] Calcium 9.5 8.5 - 10.5 mg/dL [facility] Est Glomerular Filtration Rate 46(L) >=60 mL/min/1. 73 m?? [facility] [...] CHEMISTRY ORDERABLES [facility] [address] * XR Chest One View (07/03/2023 3:18 PM EDT) WORKSTATION ID [id number] RAD Anatomical Region Laterality Modality Chest N/A Digital Radiogra phy Impressions 07/03/2023 3:27 PM EDT No pulmonary edema or pleural effusion Thank you for letting us participate in the care of this patient. ??If you are a health care provider and have any questions regarding this report, please contact the number below. ??For patients who have questions please contact the health rn long term care that requested your imaging first. ? [...] who have questions please contactthe health rn long term care that requested your imaging first. Lino Calles MD IMG DX ORDERABLES * Arterial Duplex Leg, Unil (07/03/2023 9:34 AM EDT) VB Text Report Department: Vascular Surgery Lab Patient: [id number] (LOIDA ROQUE) CPT: 67048 Referring Physician: LINO CALLES ?? Phone: Indications: [...] 3:07 AM EDT) Neutrophil % 67.2 % [facility] Neutrophil Absolute 5.51 1.70 - 6.10 x10(3)/[facility] Lymph % 20.7 % [facility] Lymphocytes Abs 1.7 0.9 - 3.2 x10(3)/[facility] Monocyte % 7.7 % [facility] Monocyte Abs 0.6 0.3 - 0.9 x10(3)/[facility] Eos % 3.7 % [facility] Eosinophils Abs 0.3 0.0 - 0.4 x10(3)/[facility] Basophil % 0.5 % [facility] Baso Absolute 0.0 0.0 - 0.1 x10(3)/[facility] Immature Gran % 0.20 % [facility] Comment: Immature granulocytes(IG's)percentage and absolute count will include metamyelocytes, myelocytes, and promyelocytes. Blood smears from CBCs yielding IG's will be scanned manually for concordance. If this scan disagrees with the automated IG or if promyelocytes are noted, a manual differential will be performed. Immature Gran Absolute 0.02 0.00 - 0.04 x10(3)/mcL [facility] Blood 07/03/2023 3:07 AM EDT 07/03/2023 3:15 AM EDT Narrative Resulting Agency Comment Spec In Lab Terrence Keating MD HEMATOLOGY ORDERABLE S [facility] [place] [address] * (ABNORMAL) Hemogram (07/03/2023 3:07 AM EDT) White Blood Cell 8.2 4.0 - 9.5 x10(3)/mc L [facility] Red Blood Cell 3.97(L) 4.00 - 5.21 x10(6)/mc L [facility] Hemoglobin 12.5 11.7 - 15.5 g/dL [facility] Hematocrit 38.5 35.7 - 45.8 % [facility] Mean Cell Volume 97.0(H) 82.6 - 94.4 fL [facility] Mean Cell Hemoglobin 31.5 27.1 - 32.0 pg [facility] Mean Cell Hemoglobin Concentration 32.5 31.7 - 35.0 g/dL [facility] Platelet 203 145 - 357 x10(3)/mc L [facility] RDW Standard Deviation 49.6(H) 37.0 - 46.0 [facility] RDW coefficient of variation 13.7 11.5 - 14.1 % [facility] Mean Platelet Volume 10.8 7.6 - 12.9 [facility] NRBC% auto 0.0 % [facility] NRBC Absolute 0.000 0.000 - 0.000 x10(3)/ L [facility] Blood 07/03/2023 3:07 AM EDT 07/03/2023 3:15 AM EDT Narrative Resulting Agency Comment Spec In Lab Terrence Keating MD HEMATOLOGY ORDERABLE S Performing Organization Address [facility]/ZIP Co de Phone Number [facility] [place] [address] * Heparin (unfractionated) Level (07/03/2023 3:07 AM EDT) UF Heparin 0.49 IU/mL [facility] Comment: Heparin [...] MD HEMATOLOGY ORDERABLE S Performing Organization Address City/[facility]/ZIP Co de Phone Number [facility] [address] * (ABNORMAL) Basic Metabolic Panel (non-fasting) (07/03/2023 3:07 AM EDT) Glucose 104 65 - 199 mg/dL [facility] Comment:Diabetes: >=200 mg/d L plus symptoms Blood Urea Nitrogen 16 8 - 18 mg/dL [facility] [...] 107 mmol/L [facility] Carbon Dioxide 20(L) 22 - 31 mmol/L [facility] Anion Gap 11 5 - 15 mmol/L [facility] Calcium 8.8 8.5 - 10.5 mg/dL [facility] Est Glomerular Filtration Rate 54(L) >=60 mL/min/1. 73 m?? [facility] [...] ORDERABL ES [facility] [address] * Phosphorus (07/03/2023 3:07 AM EDT) Phosphorus 3.6 2.5 - 4.5 mg/dL [facility] Blood 07/03/2023 3:07 AM EDT 07/03/2023 3:15 AM EDT Narrative Resulting Agency Comment Spec In Lab Eufemia Copeland MD CHEMISTRY ORDERABL ES Performing Organization Address [facility] Co de Phone Number [facility] [place] [address] * Magnesium (07/03/2023 3:07 AM EDT) Magnesium 0.93 0.69 - 1.07 mmol/L [facility] Blood 07/03/2023 3:07 AM EDT 07/03/2023 3:15 AM EDT Narrative Resulting Agency Comment Spec In Lab Eufemia Copeland MD CHEMISTRY ORDERABL ES Performing Organization Address [facility] Co de Phone Number [facility] [place] [address] * Heparin (unfractionated) Level (07/02/2023 8:58 PM EDT) UF Heparin 0.60 IU/mL [facility] Comment: Heparin [...] Performing Organization Address [facility] Co de Phone Number [facility] [place] [address] * VS Arteriogram Mesenteric Vascular Surgery (07/02/2023 [...] anesthetic: 10 cc 1% lidocaine Heparin: Yes [address] ?? Units Protamine: No ??mg Antibiotics: Ancef [...] We exchanged the sheath for a 7 [place]vian tour escort steerable sheath over a stiff wire. ??A Glidewire and Kumpe catheter were used to selectively cannulate the superior mesenteric artery. ??Direct angiography of the superior mesenteric artery was performed, confirming the results of the nonselective aortography performed. ??The lesion was predilated with a 4 mm x 40 mm [place] balloon, and then a 6 mm X [...] MD 07/07/2023 10:48 AM Ailyn Irvin MD [facility] [place] IR ORDERABLES * Differential, Automated (07/02/2023 3:58 AM EDT) Neutrophil % 61.3 % [facility] Neutrophil Absolute 4.67 1.70 - 6.10 x10(3)/[facility] Lymph % 27.6 % [facility] Lymphocytes Abs 2.1 0.9 - 3.2 x10(3)/[facility] Monocyte % 6.4 % [facility] Monocyte Abs 0.5 0.3 - 0.9 x10(3)/[facility] Eos % 3.9 % [facility] Eosinophils Abs 0.3 0.0 - 0.4 x10(3)/[facility] Basophil % 0.5 % [facility] Baso Absolute 0.0 0.0 - 0.1 x10(3)/[facility] Immature Gran % 0.30 % [facility] Comment: Immature granulocytes(IG's)percentage and absolute count will include metamyelocytes, myelocytes, and promyelocytes. Blood smears from CBCs yielding IG's will be scanned manually for concordance. If this scan disagrees with the automated IG or if promyelocytes are noted, a manual differential will be performed. Immature Gran Absolute 0.02 0.00 - 0.04 x10(3)/mcL [facility] Blood 07/02/2023 3:58 AM EDT 07/02/2023 4:14 AM EDT Narrative Resulting Agency Comment Spec In Lab Terrence Keating MD HEMATOLOGY ORDERABLE S [facility] [place] [address] * (ABNORMAL) Hemogram (07/02/2023 3:58 AM EDT) White Blood Cell 7.6 4.0 - 9.5 x10(3)/ L [facility] Red Blood Cell 4.12 4.00 - 5.21 x10(6)/[facility] Hemoglobin 12.9 11.7 - 15.5 g/dL [facility] Hematocrit 39.5 35.7 - 45.8 % [facility] Mean Cell Volume 95.9(H) 82.6 - 94.4 [facility] Mean Cell Hemoglobin 31.3 27.1 - 32.0 pg [facility] Mean Cell Hemoglobin Concentration 32.7 31.7 - 35.0 g/dL [facility] Platelet 200 145 - 357 x10(3)/[facility] RDW Standard Deviation 47.4(H) 37.0 - 46.0 [facility] RDW coefficient of variation 13.3 11.5 - 14.1 % [facility] Mean Platelet Volume 10.8 7.6 - 12.9 [facility] NRBC% auto 0.0 % [facility] NRBC Absolute 0.000 0.000 - 0.000 x10(3)/ L [facility] Blood 07/02/2023 3:58 AM EDT 07/02/2023 4:14 AM EDT Narrative Resulting Agency Comment Spec In Lab Terrence Keating MD HEMATOLOGY ORDERABLE S Performing Organization Address City/[facility]/ZIP Co de Phone Number [facility] [place] [address] * Heparin (unfractionated) Level (07/02/2023 3:58 AM EDT) UF Heparin 0.57 IU/mL [facility] Comment: Heparin [...] Performing Organization Address [facility]/ZIP Co de Phone Number [facility] [place] [address] * (ABNORMAL) Basic Metabolic Panel (non-fasting) (07/02/2023 3:58 AM EDT) Glucose 96 65 - 199 mg/dL [facility] Comment:Diabetes: >=200 mg/d L plus symptoms Blood Urea Nitrogen 15 8 - 18 mg/dL [facility] [...] 107 mmol/L [facility] Carbon Dioxide 21(L) 22 - 31 mmol/L [facility] Anion Gap 8 5 - 15 mmol/L [facility] Calcium 8.8 8.5 - 10.5 mg/dL [facility] Est Glomerular Filtration Rate 53(L) >=60 mL/min/1. 73 m?? [facility] [...] ORDERABL ES [facility] [address] * Phosphorus (07/02/2023 3:58 AM EDT) Phosphorus 3.8 2.5 - 4.5 mg/dL [facility] Blood 07/02/2023 3:58 AM EDT 07/02/2023 4:14 AM EDT Narrative Resulting Agency Comment Spec In Lab Eufemia Cpoeland MD CHEMISTRY ORDERABL ES Performing Organization Address City/[facility]/ZIP Co de Phone Number [facility] [place] [address] * Magnesium (07/02/2023 3:58 AM EDT) Pathologist [facility] Magnesium 0.95 0.69 - 1.07 mmol/L [facility] Blood 07/02/2023 3:58 AM EDT 07/02/2023 4:14 AM EDT Narrative Resulting Agency Comment Spec In Lab Eufemia Copeland MD CHEMISTRY ORDERABL ES Performing Organization Address [facility] Co de Phone Number [facility] [place] [address] * EKG 12 Lead (07/01/2023 12:08 PM EDT) Pathologist [facility] Ventricular rate 48 BPM MUSE SYSTEM Atrial Rate 48 BPM MUSE SYSTEM P-R Interval 192 ms MUSE SYSTEM QRS Duration 92 ms MUSE SYSTEM Q-T Interval 474 ms MUSE SYSTEM QTC Calculated (Bezet) 423 ms MUSE SYSTEM Calculated P [place] 32 degrees MUSE SYSTEM Calculated R [place] 45 degrees MUSE SYSTEM Calculated T [place] 0 degrees MUSE SYSTEM INTERPRETATION Sinus bradycardia [...] Keating MD ECG ORDERABLES Performing Organization Address City/[facility] Co de Phone Number MUSE SYSTEM * Differential, Automated (07/01/2023 2:56 AM EDT) Pathologist [facility] Neutrophil % 50.5 % [facility] Neutrophil Absolute 3.47 1.70 - 6.10 x10(3)/[facility] Lymph % 36.5 % [facility] Lymphocytes Abs 2.5 0.9 - 3.2 x10(3)/[facility] Monocyte % 7.7 % [facility] Monocyte Abs 0.5 0.3 - 0.9 x10(3)/[facility] Eos % 4.5 % [facility] Eosinophils Abs 0.3 0.0 - 0.4 x10(3)/[facility] Basophil % 0.7 % [facility] Baso Absolute 0.0 0.0 - 0.1 x10(3)/[facility] Immature Gran % 0.10 % [facility] Comment: Immature granulocytes(IG's)percentage and absolute count will include metamyelocytes, myelocytes, and promyelocytes. Blood smears from CBCs yielding IG's will be scanned manually for concordance. If this scan disagrees with the automated IG or if promyelocytes are noted, a manual differential will be performed. Immature Gran Absolute 0.01 0.00 - 0.04 x10(3)/[facility] Blood 07/01/2023 2:56 AM EDT 07/01/2023 3:22 AM EDT Narrative Resulting Agency Comment Spec In Lab Terrence Keating MD HEMATOLOGY ORDERABLE S [facility] [place] [address] * (ABNORMAL) Hemogram (07/01/2023 2:56 AM EDT) White Blood Cell 6.9 4.0 - 9.5 x10(3)/mc L [facility] Red Blood Cell 4.04 4.00 - 5.21 x10(6)/ L [facility] Hemoglobin 12.8 11.7 - 15.5 g/dL [facility] Hematocrit 39.0 35.7 - 45.8 % [facility] Mean Cell Volume 96.5(H) 82.6 - 94.4 fL [facility] Mean Cell Hemoglobin 31.7 27.1 - 32.0 pg [facility] Mean Cell Hemoglobin Concentration 32.8 31.7 - 35.0 g/dL [facility] Platelet 224 145 - 357 x10(3)/mc L [facility] RDW Standard Deviation 47.8(H) 37.0 - 46.0 fL [facility] RDW coefficient of variation 13.3 11.5 - 14.1 % [facility] Mean Platelet Volume 11.1 7.6 - 12.9 fL [facility] NRBC% auto 0.0 % [facility] NRBC Absolute 0.000 0.000 - 0.000 x10(3)/mc L [facility] Blood 07/01/2023 2:56 AM EDT 07/01/2023 3:22 AM EDT Narrative Resulting Agency Comment Spec In Lab Terrence Keating MD HEMATOLOGY ORDERABLE S [facility] [place] [address] * Heparin (unfractionated) Level (07/01/2023 2:56 AM EDT) UF Heparin 0.56 IU/mL [facility] Comment: Heparin [...] ORDERABLE S [facility] [address] * (ABNORMAL) Basic Metabolic Panel (non-fasting) (07/01/2023 2:56 AM EDT) Glucose 95 65 - 199 mg/dL [facility] Comment:Diabetes: >=200 mg/d L plus symptoms Blood Urea Nitrogen 16 8 - 18 mg/dL [facility] [...] 107 mmol/L [facility] Carbon Dioxide 22 22 - 31 mmol/L [facility] Anion Gap 10 5 - 15 mmol/L [facility] Calcium 9.0 8.5 - 10.5 mg/dL [facility] Est Glomerular Filtration Rate 53(L) >=60 mL/min/1. 73 m?? [facility] [...] Performing Organization Address [facility]/ZIP Co de Phone Number [facility] [address] * Phosphorus (07/01/2023 2:56 AM EDT) Phosphorus 4.1 2.5 - 4.5 mg/dL [facility] Blood 07/01/2023 2:56 AM EDT 07/01/2023 3:22 AM EDT Narrative Resulting Agency Comment Spec In Lab Eufemia Copeland MD CHEMISTRY ORDERABL ES Performing Organization Address [facility] Co de Phone Number [facility] [place] [address] * Magnesium (07/01/2023 2:56 AM EDT) Magnesium 0.95 0.69 - 1.07 mmol/L [facility] Blood 07/01/2023 2:56 AM EDT 07/01/2023 3:22 AM EDT Narrative Resulting Agency Comment Spec In Lab Eufemia Copeland MD CHEMISTRY ORDERABL ES Performing Organization Address [facility] Co de Phone Number [facility] [place] [address] * Heparin (unfractionated) Level (06/30/2023 9:24 AM EDT) UF Heparin 0.62 IU/mL [facility] Comment: Heparin [...] MD HEMATOLOGY ORDERABLE S Performing Organization Address City/State/[facility] Co de Phone Number [facility] [place] [address] * Differential, Automated (06/30/2023 3:14 AM EDT) Neutrophil % 49.5 % [facility] Neutrophil Absolute 3.96 1.70 - 6.10 x10(3)/[facility] Lymph % 36.6 % [facility] Lymphocytes Abs 2.9 0.9 - 3.2 x10(3)/[facility] Monocyte % 8.6 % [facility] Monocyte Abs 0.7 0.3 - 0.9 x10(3)/[facility] Eos % 4.1 % [facility] Eosinophils Abs 0.3 0.0 - 0.4 x10(3)/[facility] Basophil % 0.8 % [facility] Baso Absolute 0.1 0.0 - 0.1 x10(3)/[facility] Immature Gran % 0.40 % [facility] Comment: Immature granulocytes(IG's)percentage and absolute count will include metamyelocytes, myelocytes, and promyelocytes. Blood smears from CBCs yielding IG's will be scanned manually for concordance. If this scan disagrees with the automated IG or if promyelocytes are noted, a manual differential will be performed. Immature Gran Absolute 0.03 0.00 - 0.04 x10(3)/[facility] Blood 06/30/2023 3:14 AM EDT 06/30/2023 3:23 AM EDT Narrative Resulting Agency Comment Spec In Lab Terrence Keating MD HEMATOLOGY ORDERABLE S [facility] [place] [address] * Hemogram (06/30/2023 3:14 AM EDT) White Blood Cell 8.0 4.0 - 9.5 x10(3)/[facility] Red Blood Cell 4.22 4.00 - 5.21 x10(6)/[facility] Hemoglobin 13.1 11.7 - 15.5 g/dL [facility] Hematocrit 39.5 35.7 - 45.8 % [facility] Mean Cell Volume 93.6 82.6 - 94.4 fL [facility] Mean Cell Hemoglobin 31.0 27.1 - 32.0 pg [facility] Mean Cell Hemoglobin Concentration 33.2 31.7 - 35.0 g/dL [facility] Platelet 235 145 - 357 x10(3)/[facility] RDW Standard Deviation 45.3 37.0 - 46.0 [facility] RDW coefficient of variation 13.3 11.5 - 14.1 % [facility] Mean Platelet Volume 11.0 7.6 - 12.9 fL [facility] NRBC% auto 0.0 % [facility] NRBC Absolute 0.000 0.000 - 0.000 x10(3)/[facility] Blood 06/30/2023 3:14 AM EDT 06/30/2023 3:23 AM EDT Narrative Resulting Agency Comment Spec In Lab Terrence Keating MD HEMATOLOGY ORDERABLE S Performing Organization Address City/[facility]/ZIP Co de Phone Number [facility] [place] [address] * Heparin (unfractionated) Level (06/30/2023 3:14 AM EDT) UF Heparin 0.70 IU/mL [facility] Comment: Heparin [...] MD HEMATOLOGY ORDERABLE S Performing Organization Address City/[facility]/ZIP Co de Phone Number [facility] [place] [address] * (ABNORMAL) Basic Metabolic Panel (non-fasting) (06/30/2023 3:14 AM EDT) Glucose 103 65 - 199 mg/dL [facility] Comment:Diabetes: >=200 mg/d L plus symptoms Blood Urea Nitrogen 18 8 - 18 mg/dL [facility] 107 mmol/L [facility] Carbon Dioxide 23 22 - 31 mmol/L [facility] Anion Gap 10 5 - 15 mmol/L [facility] Calcium 9.1 8.5 - 10.5 mg/dL [facility] Est Glomerular Filtration Rate 53(L) >=60 mL/min/1. 73 m?? [facility] [...] Performing Organization Address [facility] [place] [place] [address] * Phosphorus (06/30/2023 3:14 AM EDT) Phosphorus 4.4 2.5 - 4.5 mg/dL [facility] Blood 06/30/2023 3:14 AM EDT 06/30/2023 3:23 AM EDT Narrative Resulting Agency Comment Spec In Lab Eufemia Copeland MD CHEMISTRY ORDERABL ES Performing Organization Address [facility]/ZIP Co de Phone Number [facility] [place] [address] * Magnesium (06/30/2023 3:14 AM EDT) Pathologist [facility] Magnesium 0.94 0.69 - 1.07 mmol/L [facility] Blood 06/30/2023 3:14 AM EDT 06/30/2023 3:23 AM EDT Narrative Resulting Agency Comment Spec In Lab Eufemia Copeland MD CHEMISTRY ORDERABL ES Performing Organization Address [facility]/ZIP Co de Phone Number [facility] [place] [address] * Heparin (unfractionated) Level (06/29/2023 8:47 PM EDT) [facility] UF Heparin 0.75 IU/mL [facility] Comment: Heparin [...] MD HEMATOLOGY ORDERABLE S Performing Organization Address City/[facility]/ZIP Co de Phone Number [facility] [place] [address] * EKG 12 Lead (06/29/2023 12:55 PM EDT) [facility] Ventricular rate 53 BPM MUSE SYSTEM Atrial Rate 53 BPM MUSE SYSTEM P-R Interval 196 ms MUSE SYSTEM QRS Duration 90 ms MUSE SYSTEM Q-T Interval 564 ms MUSE SYSTEM QTC Calculated (Bezet) 529 ms MUSE SYSTEM Calculated P [place] 30 degrees MUSE SYSTEM Calculated R [place] 53 degrees MUSE SYSTEM Calculated T [place] 5 degrees MUSE SYSTEM INTERPRETATION Sinus bradycardia Marked ST abnormality, possible inferior subendocardial injury Prolonged QT Abnormal ECG When compared with ECG of 26-JUN-2023 06:04, Nonspecific T wave abnormality no longer evident in Anterolateral leads QT has lengthened Confirmed by MD Angelo Danette ([id number]) on 06/29/2023 8:34:43 PM MUSE SYSTEM 06/29/2023 12:5 5 PM EDT 06/29/2023 8:34 PM EDT Terrence Keating MD ECG ORDERABLES Performing Organization Address City/State/[facility] Co de Phone Number MUSE SYSTEM * (ABNORMAL) Heparin (unfractionated) Level (06/29/2023 11:34 AM EDT) UF Heparin 1.41(Crit ical) IU/mL [facility] Comment: Critical Result called by ?? NAZARIOJR CRITICAL Results read back by: ? Chilo [...] ORDERABLE S [facility] [place] [address] * Differential, Automated (06/29/2023 2:39 AM EDT) Pathologist [facility] Neutrophil % 53.8 % [facility] Neutrophil Absolute 4.46 1.70 - 6.10 x10(3)/[facility] Lymph % 33.5 % [facility] Lymphocytes Abs 2.8 0.9 - 3.2 x10(3)/[facility] Monocyte % 8.3 % [facility] Monocyte Abs 0.7 0.3 - 0.9 x10(3)/[facility] Eos % 3.5 % [facility] Eosinophils Abs 0.3 0.0 - 0.4 x10(3)/[facility] Basophil % 0.5 % [facility] Baso Absolute 0.0 0.0 - 0.1 x10(3)/[facility] Immature Gran % 0.40 % [facility] Comment: Immature granulocytes(IG's)percentage and absolute count will include metamyelocytes, myelocytes, and promyelocytes. Blood smears from CBCs yielding IG's will be scanned manually for concordance. If this scan disagrees with the automated IG or if promyelocytes are noted, a manual differential will be performed. Immature Gran Absolute 0.03 0.00 - 0.04 x10(3)/[facility] Blood 06/29/2023 2:39 AM EDT 06/29/2023 3:33 AM EDT Narrative Resulting Agency Comment Spec In Lab Terrence Keating MD HEMATOLOGY ORDERABLE S [facility] [place] [address] * Hemogram (06/29/2023 2:39 AM EDT) White Blood Cell 8.3 4.0 - 9.5 x10(3)/[facility] Red Blood Cell 4.19 4.00 - 5.21 x10(6)/[facility] Hemoglobin 13.2 11.7 - 15.5 g/dL [facility] Hematocrit 38.9 35.7 - 45.8 % [facility] Mean Cell Volume 92.8 82.6 - 94.4 fL [facility] Mean Cell Hemoglobin 31.5 27.1 - 32.0 pg [facility] Mean Cell Hemoglobin Concentration 33.9 31.7 - 35.0 g/dL [facility] Platelet 237 145 - 357 x10(3)/[facility] RDW Standard Deviation 45.3 37.0 - 46.0 [facility] RDW coefficient of variation 13.3 11.5 - 14.1 % [facility] Mean Platelet Volume 11.4 7.6 - 12.9 [facility] NRBC% auto 0.0 % [facility] NRBC Absolute 0.000 0.000 - 0.000 x10(3)/[facility] Blood 06/29/2023 2:39 AM EDT 06/29/2023 3:33 AM EDT Narrative Resulting Agency Comment Spec In Lab Terrence Keating MD HEMATOLOGY ORDERABLE S [facility] [place] [place] [address] * (ABNORMAL) Heparin (unfractionated) Level (06/29/2023 2:39 AM EDT) UF Heparin 1.77(Crit ical) IU/mL [facility] Comment: Specimen drawn more than one hour prior to testing. Results may not be reliable for heparin monitoring. Result may be falsely low. Critical Result called by ?? HULL CRITICAL Results read back by: ? Guilherme [...] MD HEMATOLOGY ORDERABLE S Performing Organization Address City/State/[facility] Co de Phone Number [facility] [place] [address] * (ABNORMAL) Basic Metabolic Panel (non-fasting) (06/29/2023 2:39 AM EDT) [facility] Glucose 100 65 - 199 mg/dL [facility] Comment:Diabetes: >=200 mg/d L plus symptoms Blood Urea Nitrogen 21(H) 8 - 18 mg/dL [facility] 107 mmol/L [facility] Carbon Dioxide 22 22 - 31 mmol/L [facility] Anion Gap 11 5 - 15 mmol/L [facility] Calcium 9.1 8.5 - 10.5 mg/dL [facility] Est Glomerular Filtration Rate 55(L) >=60 mL/min/1. 73 m?? [facility] [...] ORDERABL ES [facility] [address] * Phosphorus (06/29/2023 2:39 AM EDT) Phosphorus 4.0 2.5 - 4.5 mg/dL [facility] Blood 06/29/2023 2:39 AM EDT 06/29/2023 3:33 AM EDT Narrative Resulting Agency Comment Spec In Lab Eufemia Copeland MD CHEMISTRY ORDERABL ES [facility] [place] [address] * Magnesium (06/29/2023 2:39 AM EDT) Magnesium 0.92 0.69 - 1.07 mmol/L [facility] Blood 06/29/2023 2:39 AM EDT 06/29/2023 3:33 AM EDT Narrative Resulting Agency Comment Spec In Lab Eufemia Copeland MD CHEMISTRY ORDERABL ES [facility] [place] [address] * US Abdomen Limited (06/28/2023 12:22 PM EDT) WORKSTATION ID [id number] RAD Anatomical Region Laterality Modality Abdomen Ultrasound [...] have questions, please contact the health rn long term care that requested your imaging first. ?Sigrid Owens E Hotel Assistant General Manager Electronically Signed Final Report ?? 06/28/2023 02:08 pm Narrative 06/28/2023 2:08 PM EDT Abdominal ? (Signed Final 06/28/2023 02:08 pm) PATIENT INFO: ID #: ? [id number] ?: ??[birth year] (53 yrs)(F) Name: ? LOIDA ?Visit Date: 06/28/2023 12:20 pm ? ROHAN PERFORMED BY: Attending: ?Graciela JOHN, Sigrid Munoz Resident: ? Karo JOHN, Rafaela Performed By: ? Rick STANFORD, ??Deena Referred By: ?AILYN IRVIN Location: ? [facility] SERVICE(S) PROVIDED: UABDLIM - Abdominal Limited Survey Single ? 72240 Organ or Quadrant - [id number] INDICATIONS: RUQ pain, R/o Gall bladder colic, [...] 06/28/2023 02:08 pm) PATIENT INFO: ID #: [id number] : [birth year] (53 yrs)(F) Name: LOIDA Visit Date: 06/28/2023 12:20 pm ROHAN PERFORMED BY: Attending: Sigrid Owens MD Resident: Rafaela Huddleston MD Performed By: Deena Cabrera RDMS Referred By: AILYN IRVIN Location: [facility] SERVICE(S) PROVIDED: UABDLIM - Abdominal Limited Survey Single 06188 Organ or Quadrant - [id number] INDICATIONS: RUQ pain, R/o Gall bladder colic, [...] have questions, please contact the health rn long term care that requested your imaging first. Sigrid Owens, [facility] Hotel Assistant General Manager Electronically Signed Final Report 06/28/2023 02:08 pm Ailyn Irvin MD IMG US GEN ORDERABLE S * Duplex Study Visceral Arteries, Comp (06/28/2023 10:19 AM EDT) VB Text Report Department: Vascular Surgery Lab Patient: [id number] (LOIDA ROQUE) CPT: [id number] Referring Physician: HEIDY SULLIVAN ?? Indications: abdominal pain, ? patency/stenosi s Findings: Unilateral ? Waveform ? PSV cm/s ??EDV cm/s ??Patent ?? Dary Visceral Aorta ? 80 ?16 ? Celiac Artery, Proximal ??[place]-Biphasic ? 119 ?26 ? Celiac Artery, Mid ? [place]-Biphasic ? 115 ?21 ? Celiac Artery, Distal ? No Vis ?? Sup Mes Artery Proximal ??Biphasic ?427 ?91 ? Sup Mes Artery Middle ?[place]-Biphasic ? 100 ?17 ? Sup Mes Artery Distal ?[place]-Biphasic ?64 ?15 ? Hepatic Artery ?No Vis [...] 1:52 AM EDT) Neutrophil % 55.3 % [facility] Neutrophil Absolute 4.46 1.70 - 6.10 x10(3)/[facility] Lymph % 30.6 % [facility] Lymphocytes Abs 2.5 0.9 - 3.2 x10(3)/[facility] Monocyte % 8.8 % [facility] Monocyte Abs 0.7 0.3 - 0.9 x10(3)/[facility] Eos % 4.6 % [facility] Eosinophils Abs 0.4 0.0 - 0.4 x10(3)/[facility] Basophil % 0.5 % [facility] Baso Absolute 0.0 0.0 - 0.1 x10(3)/[facility] Immature Gran % 0.20 % [facility] Comment: Immature granulocytes(IG's)percentage and absolute count will include metamyelocytes, myelocytes, and promyelocytes. Blood smears from CBCs yielding IG's will be scanned manually for concordance. If this scan disagrees with the automated IG or if promyelocytes are noted, a manual differential will be performed. Immature Gran Absolute 0.02 0.00 - 0.04 x10(3)/[facility] Blood 06/28/2023 1:52 AM EDT 06/28/2023 2:05 AM EDT Narrative Resulting Agency Comment Spec In Lab Terrence Keating MD HEMATOLOGY ORDERABLE S [facility] [place] [address] * Hemogram (06/28/2023 1:52 AM EDT) White Blood Cell 8.1 4.0 - 9.5 x10(3)/[facility] Red Blood Cell 4.30 4.00 - 5.21 x10(6)/[facility] Hemoglobin 13.4 11.7 - 15.5 g/dL [facility] Hematocrit 40.6 35.7 - 45.8 % [facility] Mean Cell Volume 94.4 82.6 - 94.4 fL [facility] Mean Cell Hemoglobin 31.2 27.1 - 32.0 pg [facility] Mean Cell Hemoglobin Concentration 33.0 31.7 - 35.0 g/dL [facility] Platelet 238 145 - 357 x10(3)/[facility] RDW Standard Deviation 45.7 37.0 - 46.0 [facility] RDW coefficient of variation 13.2 11.5 - 14.1 % [facility] Mean Platelet Volume 10.8 7.6 - 12.9 fL [facility] NRBC% auto 0.0 % [facility] NRBC Absolute 0.000 0.000 - 0.000 x10(3)/[facility] Blood 06/28/2023 1:52 AM EDT 06/28/2023 2:05 AM EDT Narrative Resulting Agency Comment Spec In Lab Terrence Keating MD HEMATOLOGY ORDERABLE S [facility] [address] * (ABNORMAL) Basic Metabolic Panel (non-fasting) (06/28/2023 1:52 AM EDT) Glucose 101 65 - 199 mg/dL [facility] Comment:Diabetes: >=200 mg/d L plus symptoms Blood Urea Nitrogen 24(H) 8 - 18 mg/dL [facility] [...] 107 mmol/L [facility] Carbon Dioxide 21(L) 22 - 31 mmol/L [facility] Anion Gap 12 5 - 15 mmol/L [facility] Calcium 9.0 8.5 - 10.5 mg/dL [facility] Est Glomerular Filtration Rate 53(L) >=60 mL/min/1. 73 m?? [facility] [...] Performing Organization Address [facility] de Phone Number [facility] [address] * Phosphorus (06/28/2023 1:52 AM EDT) Phosphorus 4.5 2.5 - 4.5 mg/dL [facility] Blood 06/28/2023 1:52 AM EDT 06/28/2023 2:05 AM EDT Narrative Resulting Agency Comment Spec In Lab Eufemia Copeland MD CHEMISTRY ORDERABL ES Performing Organization Address [facility] Phone Number [facility] [place] [address] * Magnesium (06/28/2023 1:52 AM EDT) Magnesium 0.93 0.69 - 1.07 mmol/L [facility] Blood 06/28/2023 1:52 AM EDT 06/28/2023 2:05 AM EDT Narrative Resulting Agency Comment Spec In Lab Eufemia Copeland MD CHEMISTRY ORDERABL ES Performing Organization Address [facility] de Phone Number [facility] [place] [address] * (ABNORMAL) Basic Metabolic Panel (non-fasting) (06/27/2023 8:06 PM EDT) Glucose 94 65 - 199 mg/dL [facility] Comment:Diabetes: >=200 mg/d L plus symptoms Blood Urea Nitrogen 24(H) 8 - 18 mg/dL [facility] [...] 107 mmol/L [facility] Carbon Dioxide 24 22 - 31 mmol/L [facility] Anion Gap 11 5 - 15 mmol/L [facility] Calcium 9.3 8.5 - 10.5 mg/dL [facility] Est Glomerular Filtration Rate 50(L) >=60 mL/min/1. 73 m?? [facility] [...] CHEMISTRY ORDERABLES [facility] [place] [address] * (ABNORMAL) Hepatic Function Panel (06/27/2023 4:34 AM EDT) Protein, Total 6.4 6.1 - 8.0 g/dL [facility] Albumin 3.8 3.2 - 5.2 g/dL [facility] Aspartate Aminotransferase 21 0 - 30 unit/L [facility] Alanine Aminotransferase 22 0 - 30 unit/L [facility] Alkaline Phosphatase 56 35 - 105 unit/L [facility] Bilirubin, Total <0.2(L) 0.2 - 1.3 mg/dL [facility] Bilirubin, Direct <0.1 0.0 - 0.3 mg/dL [facility] Blood Venous Draw / Unknown 06/27/2023 4:34 AM EDT 06/27/2023 4:53 AM EDT Narrative Resulting Agency Comment Spec In Lab Ailyn Irvin MD CHEMISTRY ORDERABLES [facility] [place] [address] * Differential, Automated (06/27/2023 4:34 AM EDT) Neutrophil % 52.7 % [facility] Neutrophil Absolute 4.01 1.70 - 6.10 x10(3)/[facility] Lymph % 33.8 % [facility] Lymphocytes Abs 2.6 0.9 - 3.2 x10(3)/[facility] Monocyte % 8.8 % [facility] Monocyte Abs 0.7 0.3 - 0.9 x10(3)/[facility] Eos % 3.8 % [facility] Eosinophils Abs 0.3 0.0 - 0.4 x10(3)/[facility] Basophil % 0.5 % [facility] Baso Absolute 0.0 0.0 - 0.1 x10(3)/[facility] Immature Gran % 0.40 % [facility] Comment: Immature granulocytes(IG's)percentage and absolute count will include metamyelocytes, myelocytes, and promyelocytes. Blood smears from CBCs yielding IG's will be scanned manually for concordance. If this scan disagrees with the automated IG or if promyelocytes are noted, a manual differential will be performed. Immature Gran Absolute 0.03 0.00 - 0.04 x10(3)/[facility] Blood 06/27/2023 4:34 AM EDT 06/27/2023 4:51 AM EDT Narrative Resulting Agency Comment Spec In Lab Terrence Ketaing MD HEMATOLOGY ORDERABLE S [facility] [place] [address] * Hemogram (06/27/2023 4:34 AM EDT) White Blood Cell 7.6 4.0 - 9.5 x10(3)/[facility] Red Blood Cell 4.15 4.00 - 5.21 x10(6)/[facility] Hemoglobin 12.9 11.7 - 15.5 g/dL [facility] Hematocrit 39.0 35.7 - 45.8 % [facility] Mean Cell Volume 94.0 82.6 - 94.4 fL [facility] Mean Cell Hemoglobin 31.1 27.1 - 32.0 pg [facility] Mean Cell Hemoglobin Concentration 33.1 31.7 - 35.0 g/dL [facility] Platelet 245 145 - 357 x10(3)/[facility] RDW Standard Deviation 45.2 37.0 - 46.0 [facility] RDW coefficient of variation 13.2 11.5 - 14.1 % [facility] Mean Platelet Volume 11.2 7.6 - 12.9 fL [facility] NRBC% auto 0.0 % [facility] NRBC Absolute 0.000 0.000 - 0.000 x10(3)/[facility] Blood 06/27/2023 4:34 AM EDT 06/27/2023 4:51 AM EDT Narrative Resulting Agency Comment Spec In Lab Terrence Keating MD HEMATOLOGY ORDERABLE S [facility] [place] [address] * (ABNORMAL) Basic Metabolic Panel (non-fasting) (06/27/2023 4:34 AM EDT) Glucose 99 65 - 199 mg/dL [facility] Comment:Diabetes: >=200 mg/d L plus symptoms Blood Urea Nitrogen 26(H) 8 - 18 mg/dL [facility] [...] 107 mmol/L [facility] Carbon Dioxide 22 22 - 31 mmol/L [facility] Anion Gap 11 5 - 15 mmol/L [facility] Calcium 9.1 8.5 - 10.5 mg/dL [facility] Est Glomerular Filtration Rate 53(L) >=60 mL/min/1. 73 m?? [facility] [...] Performing Organization Address [facility] Co de Phone Number [facility] [place] [address] * (ABNORMAL) Phosphorus (06/27/2023 4:34 AM EDT) Phosphorus 4.7(H) 2.5 - 4.5 mg/dL [facility] Blood 06/27/2023 4:34 AM EDT 06/27/2023 4:51 AM EDT Narrative Resulting Agency Comment Spec In Lab Eufemia Copeland MD CHEMISTRY ORDERABL ES Performing Organization Address [facility] de Phone Number [facility] [place] [address] * Magnesium (06/27/2023 4:34 AM EDT) Magnesium 0.90 0.69 - 1.07 mmol/L [facility] Blood 06/27/2023 4:34 AM EDT 06/27/2023 4:51 AM EDT Narrative Resulting Agency Comment Spec In Lab Eufemia Copeland MD CHEMISTRY ORDERABL ES Performing Organization Address [facility] de Phone Number [facility] [place] [address] * (ABNORMAL) Basic Metabolic Panel (non-fasting) (06/26/2023 4:58 PM EDT) Glucose 106 65 - 199 mg/dL [facility] Comment:Diabetes: >=200 mg/d L plus symptoms Blood Urea Nitrogen 24(H) 8 - 18 mg/dL [facility] [...] 107 mmol/L [facility] Carbon Dioxide 21(L) 22 - 31 mmol/L [facility] Anion Gap 13 5 - 15 mmol/L [facility] Calcium 9.1 8.5 - 10.5 mg/dL [facility] Est Glomerular Filtration Rate 52(L) >=60 mL/min/1. 73 m?? [facility] [...] CHEMISTRY ORDERABLES [facility] [place] [address] * Urinalysis Microscopic Exam (06/26/2023 11:09 AM EDT) RBC, Urine 0 0 - 4 /HPF [facility] WBC, Urine 3 0 - 5 /HPF [facility] Squamous Epithelial Cells Raw Data, Urine 1 <=4 /HPF [facility] Hyaline Casts, Urine 1 0 - 2 /LPF [facility] Clean Catch Urine 06/26/2023 11:09 AM EDT 06/26/2023 5:45 PM EDT Narrative Resulting Agency Comment Spec In Lab Ailyn Irvin MD URINE ORDERABLES [facility] [place] [address] * (ABNORMAL) Urinalysis with reflex Culture (06/26/2023 11:09 AM EDT) Glucose, Urine Dipstick Negative Negative mg/dL [facility] Protein, Urine Dipstick Negative Negative mg/dL [facility] [facility] Bilirubin, Urine Dipstick Negative Negative mg/dL [facility] Comment: Clinical correlation required for positive Urine Bilirubin results as false positive may occur with some drugs and drug related products. If a false positive is suspected a serum total bilirubin should be considered if clinically indicated. Urobilinogen, Urine Dipstick Normal Normal mg/dL [facility] pH, Urn (dipstick) 6.0 5.0 - 8.0 [facility] Blood, Urine Dipstick Negative Negative mg/dL [facility] Ketone, Urine Dipstick Negative Negative mg/dL [facility] Nitrite, Urine Dipstick Negative Negative [facility] Leukocytes, Urine Dipstick Trace(A) Negative [facility] Appearance, Urine Dipstick Clear Clear [facility] Specific [place] Urine Automated 1.013 1.005 - 1.030 [facility] Color, Urine Dipstick Yellow Yellow [facility] Reflex to Culture No [facility] Clean Catch Urine 06/26/2023 11:09 AM EDT 06/26/2023 5:45 PM EDT Narrative Resulting Agency Comment Spec In Lab Ailyn Irvin MD URINE ORDERABLES [facility] [place] [address] * EKG 12 Lead (06/26/2023 6:04 AM EDT) Ventricular rate 46 BPM MUSE SYSTEM Atrial Rate 46 BPM MUSE SYSTEM P-R Interval 204 ms MUSE SYSTEM QRS Duration 90 ms MUSE SYSTEM Q-T Interval 466 ms MUSE SYSTEM QTC Calculated (Bezet) 407 ms MUSE SYSTEM Calculated P [place] 38 degrees MUSE SYSTEM Calculated R [place] 48 degrees MUSE SYSTEM Calculated T [place] 13 degrees MUSE SYSTEM INTERPRETATION Sinus bradycardia Nonspecific ST and T wave abnormality Abnormal ECG When compared with ECG of 23-JUN-2023 09:54, No significant change was found Confirmed by MD Dalia, Willy Huerta ([id number]) on 06/29/2023 6:09:20 AM MUSE SYSTEM 06/26/2023 6:04 AM EDT 06/29/2023 6:09 AM EDT Eufemia Copeland MD ECG ORDERABLES MUSE SYSTEM * Differential, Automated (06/26/2023 4:06 AM EDT) Neutrophil % 55.3 % [facility] Neutrophil Absolute 4.63 1.70 - 6.10 x10(3)/[facility] Lymph % 32.6 % [facility] Lymphocytes Abs 2.7 0.9 - 3.2 x10(3)/[facility] Monocyte % 8.2 % [facility] Monocyte Abs 0.7 0.3 - 0.9 x10(3)/[facility] Eos % 3.2 % [facility] Eosinophils Abs 0.3 0.0 - 0.4 x10(3)/[facility] Basophil % 0.5 % [facility] Baso Absolute 0.0 0.0 - 0.1 x10(3)/[facility] Immature Gran % 0.20 % [facility] Comment: Immature granulocytes(IG's)percentage and absolute count will include metamyelocytes, myelocytes, and promyelocytes. Blood smears from CBCs yielding IG's will be scanned manually for concordance. If this scan disagrees with the automated IG or if promyelocytes are noted, a manual differential will be performed. Immature Gran Absolute 0.02 0.00 - 0.04 x10(3)/mcL [facility] Blood 06/26/2023 4:06 AM EDT 06/26/2023 4:18 AM EDT Narrative Resulting Agency Comment Spec In Lab Terrence Keating MD HEMATOLOGY ORDERABLE S [facility] [place] [address] * (ABNORMAL) Hemogram (06/26/2023 4:06 AM EDT) White Blood Cell 8.4 4.0 - 9.5 x10(3)/mc L [facility] Red Blood Cell 4.52 4.00 - 5.21 x10(6)/mc L [facility] Hemoglobin 14.0 11.7 - 15.5 g/dL [facility] Hematocrit 43.6 35.7 - 45.8 % [facility] Mean Cell Volume 96.5(H) 82.6 - 94.4 fL [facility] Mean Cell Hemoglobin 31.0 27.1 - 32.0 pg [facility] Mean Cell Hemoglobin Concentration 32.1 31.7 - 35.0 g/dL [facility] Platelet 258 145 - 357 x10(3)/mc L [facility] RDW Standard Deviation 46.7(H) 37.0 - 46.0 fL [facility] RDW coefficient of variation 13.2 11.5 - 14.1 % [facility] Mean Platelet Volume 11.1 7.6 - 12.9 fL [facility] NRBC% auto 0.0 % [facility] NRBC Absolute 0.000 0.000 - 0.000 x10(3)/mc L [facility] Blood 06/26/2023 4:06 AM EDT 06/26/2023 4:18 AM EDT Narrative Resulting Agency Comment Spec In Lab Terrence Keating MD HEMATOLOGY ORDERABLE S [facility] [place] [address] * (ABNORMAL) Basic Metabolic Panel (non-fasting) (06/26/2023 4:06 AM EDT) Glucose 100 65 - 199 mg/dL [facility] Comment:Diabetes: >=200 mg/d L plus symptoms Blood Urea Nitrogen 25(H) 8 - 18 mg/dL [facility] [...] 107 mmol/L [facility] Carbon Dioxide 19(L) 22 - 31 mmol/L [facility] Anion Gap 12 5 - 15 mmol/L [facility] Calcium 9.6 8.5 - 10.5 mg/dL [facility] Est Glomerular Filtration Rate 52(L) >=60 mL/min/1. 73 m?? [facility] [...] MD CHEMISTRY ORDERABL ES Performing Organization Address City/[facility]/ZIP Co de Phone Number [facility] [address] * Phosphorus (06/26/2023 4:06 AM EDT) Phosphorus 4.3 2.5 - 4.5 mg/dL [facility] Blood 06/26/2023 4:06 AM EDT 06/26/2023 4:18 AM EDT Narrative Resulting Agency Comment Spec In Lab Eufemia Copeland MD CHEMISTRY ORDERABL ES Performing Organization Address [facility] Co de Phone Number [facility] [place] [address] * Magnesium (06/26/2023 4:06 AM EDT) Magnesium 0.96 0.69 - 1.07 mmol/L [facility] Blood 06/26/2023 4:06 AM EDT 06/26/2023 4:18 AM EDT Narrative Resulting Agency Comment Spec In Lab Eufemia Copeland MD CHEMISTRY ORDERABL ES Performing Organization Address [facility] Co de Phone Number [facility] [place] [address] * Differential, Automated (06/25/2023 1:50 AM EDT) Neutrophil % 56.2 % [facility] Neutrophil Absolute 4.06 1.70 - 6.10 x10(3)/mcL [facility] Lymph % 30.5 % [facility] Lymphocytes Abs 2.2 0.9 - 3.2 x10(3)/[facility] Monocyte % 8.7 % [facility] Monocyte Abs 0.6 0.3 - 0.9 x10(3)/[facility] Eos % 3.9 % [facility] Eosinophils Abs 0.3 0.0 - 0.4 x10(3)/[facility] Basophil % 0.6 % [facility] Baso Absolute 0.0 0.0 - 0.1 x10(3)/[facility] Immature Gran % 0.10 % [facility] Comment: Immature granulocytes(IG's)percentage and absolute count will include metamyelocytes, myelocytes, and promyelocytes. Blood smears from CBCs yielding IG's will be scanned manually for concordance. If this scan disagrees with the automated IG or if promyelocytes are noted, a manual differential will be performed. Immature Gran Absolute 0.01 0.00 - 0.04 x10(3)/[facility] Blood 06/25/2023 1:50 AM EDT 06/25/2023 2:16 AM EDT Narrative Resulting Agency Comment Spec In Lab Terrence Keating MD HEMATOLOGY ORDERABLE S Performing Organization Address City/State/[facility] Co de Phone Number [facility] [place] [address] * Hemogram (06/25/2023 1:50 AM EDT) White Blood Cell 7.2 4.0 - 9.5 x10(3)/[facility] Red Blood Cell 4.57 4.00 - 5.21 x10(6)/[facility] Hemoglobin 14.4 11.7 - 15.5 g/dL [facility] Hematocrit 42.9 35.7 - 45.8 % [facility] Mean Cell Volume 93.9 82.6 - 94.4 fL [facility] Mean Cell Hemoglobin 31.5 27.1 - 32.0 pg [facility] Mean Cell Hemoglobin Concentration 33.6 31.7 - 35.0 g/dL [facility] Platelet 241 145 - 357 x10(3)/[facility] RDW Standard Deviation 44.7 37.0 - 46.0 fL [facility] RDW coefficient of variation 13.2 11.5 - 14.1 % [facility] Mean Platelet Volume 11.5 7.6 - 12.9 fL [facility] NRBC% auto 0.0 % [facility] NRBC Absolute 0.000 0.000 - 0.000 x10(3)/[facility] Blood 06/25/2023 1:50 AM EDT 06/25/2023 2:16 AM EDT Narrative Resulting Agency Comment Spec In Lab Terrence Keating MD HEMATOLOGY ORDERABLE S [facility] [place] [address] * (ABNORMAL) Basic Metabolic Panel (non-fasting) (06/25/2023 1:50 AM EDT) Glucose 99 65 - 199 mg/dL [facility] Comment:Diabetes: >=200 mg/d L plus symptoms Blood Urea Nitrogen 20(H) 8 - 18 mg/dL [facility] [...] 107 mmol/L [facility] Carbon Dioxide 25 22 - 31 mmol/L [facility] Anion Gap 12 5 - 15 mmol/L [facility] Calcium 9.4 8.5 - 10.5 mg/dL [facility] Est Glomerular Filtration Rate 38(L) >=60 mL/min/1. 73 m?? [facility] [...] Performing Organization Address [facility] Co de Phone Number [facility] [place] [address] * Phosphorus (06/25/2023 1:50 AM EDT) Phosphorus 4.4 2.5 - 4.5 mg/dL [facility] Blood 06/25/2023 1:50 AM EDT 06/25/2023 2:16 AM EDT Narrative Resulting Agency Comment Spec In Lab Eufemia Copeland MD CHEMISTRY ORDERABL ES Performing Organization Address [facility]/ZIP Co de Phone Number [facility] [address] * Magnesium (06/25/2023 1:50 AM EDT) Magnesium 0.99 0.69 - 1.07 mmol/L [facility] Blood 06/25/2023 1:50 AM EDT 06/25/2023 2:16 AM EDT Narrative Resulting Agency Comment Spec In Lab Eufemia Copeland MD CHEMISTRY ORDERABL ES Performing Organization Address [facility]/ZIP Co de Phone Number [facility] [address] * (ABNORMAL) pro-Brain Natriuretic Peptide (06/24/2023 3:38 AM EDT) [facility] NT-proBNP 1,239(H) <=124 pg/mL [facility] Blood Venous Draw / Unknown 06/24/2023 3:38 AM EDT 06/24/2023 3:49 AM EDT Narrative Resulting Agency Comment Spec In Lab Ailyn Irvin MD CHEMISTRY ORDERABLES Performing Organization Address City/[facility]/ZIP Co de Phone Number [facility] [place] [address] * Differential, Automated (06/24/2023 3:38 AM EDT) [facility] Neutrophil % 51.6 % [facility] Neutrophil Absolute 3.54 1.70 - 6.10 x10(3)/[facility] Lymph % 36.0 % [facility] Lymphocytes Abs 2.5 0.9 - 3.2 x10(3)/[facility] Monocyte % 7.8 % [facility] Monocyte Abs 0.5 0.3 - 0.9 x10(3)/[facility] Eos % 3.6 % [facility] Eosinophils Abs 0.2 0.0 - 0.4 x10(3)/[facility] Basophil % 0.7 % [facility] Baso Absolute 0.0 0.0 - 0.1 x10(3)/[facility] Immature Gran % 0.30 % [facility] Comment: Immature granulocytes(IG's)percentage and absolute count will include metamyelocytes, myelocytes, and promyelocytes. Blood smears from CBCs yielding IG's will be scanned manually for concordance. If this scan disagrees with the automated IG or if promyelocytes are noted, a manual differential will be performed. Immature Gran Absolute 0.02 0.00 - 0.04 x10(3)/[facility] Blood 06/24/2023 3:38 AM EDT 06/24/2023 3:49 AM EDT Narrative Resulting Agency Comment Spec In Lab Terrence Keating MD HEMATOLOGY ORDERABLE S [facility] [address] * Hemogram (06/24/2023 3:38 AM EDT) White Blood Cell 6.9 4.0 - 9.5 x10(3)/[facility] Red Blood Cell 4.36 4.00 - 5.21 x10(6)/[facility] Hemoglobin 13.6 11.7 - 15.5 g/dL [facility] Hematocrit 40.7 35.7 - 45.8 % [facility] Mean Cell Volume 93.3 82.6 - 94.4 fL [facility] Mean Cell Hemoglobin 31.2 27.1 - 32.0 pg [facility] Mean Cell Hemoglobin Concentration 33.4 31.7 - 35.0 g/dL [facility] Platelet 220 145 - 357 x10(3)/[facility] RDW Standard Deviation 44.5 37.0 - 46.0 fL [facility] RDW coefficient of variation 13.0 11.5 - 14.1 % [facility] Mean Platelet Volume 10.8 7.6 - 12.9 fL [facility] NRBC% auto 0.0 % [facility] NRBC Absolute 0.000 0.000 - 0.000 x10(3)/mcL [facility] Blood 06/24/2023 3:38 AM EDT 06/24/2023 3:49 AM EDT Narrative Resulting Agency Comment Spec In Lab Terrence Keating MD HEMATOLOGY ORDERABLE S Performing Organization Address City/[facility]/ZIP Co de Phone Number [facility] [place] [address] * Heparin (unfractionated) Level (06/24/2023 3:38 AM EDT) UF Heparin 0.44 IU/mL [facility] Comment: Heparin [...] MD HEMATOLOGY ORDERABLE S Performing Organization Address City/[facility]/ZIP Co de Phone Number [facility] [place] [address] * (ABNORMAL) Basic Metabolic Panel (non-fasting) (06/24/2023 3:38 AM EDT) Glucose 96 65 - 199 mg/dL [facility] Comment:Diabetes: >=200 mg/d L plus symptoms Blood Urea Nitrogen 20(H) 8 - 18 mg/dL [facility] [...] 107 mmol/L [facility] Carbon Dioxide 21(L) 22 - 31 mmol/L [facility] Anion Gap 13 5 - 15 mmol/L [facility] Calcium 9.1 8.5 - 10.5 mg/dL [facility] Est Glomerular Filtration Rate 57(L) >=60 mL/min/1. 73 m?? [facility] [...] ORDERABL ES [facility] [address] * Phosphorus (06/24/2023 3:38 AM EDT) Phosphorus 4.1 2.5 - 4.5 mg/dL [facility] Blood 06/24/2023 3:38 AM EDT 06/24/2023 3:49 AM EDT Narrative Resulting Agency Comment Spec In Lab Eufemia Copeland MD CHEMISTRY ORDERABL ES Performing Organization Address [facility] Co de Phone Number [facility] [place] [address] * Magnesium (06/24/2023 3:38 AM EDT) Magnesium 0.96 0.69 - 1.07 mmol/L [facility] Blood 06/24/2023 3:38 AM EDT 06/24/2023 3:49 AM EDT Narrative Resulting Agency Comment Spec In Lab Eufemia Copeland MD CHEMISTRY ORDERABL ES Performing Organization Address [facility] de Phone Number [facility] [address] * Heparin (unfractionated) Level (06/23/2023 9:24 PM EDT) UF Heparin 0.51 IU/mL [facility] Comment: Heparin [...] Performing Organization Address [facility]/State/ZIP Co de Phone Number [facility] [place] [address] * Duplex Study Visceral Arteries, Comp (06/23/2023 3:36 PM EDT) VB Text Report Department: Vascular Surgery Lab Patient: [id number] (LOIDA ROQUE) CPT: [id number] Referring Physician: AILYN IRVIN ?? Phone: Indications: [...] Irvin MD VASCULAR ORDERABLES Performing Organization Address City/[facility]/ZIP Co de Phone Number [facility] * Heparin (unfractionated) Level (06/23/2023 3:01 PM EDT) UF Heparin 0.90 IU/mL [facility] Comment: Heparin [...] MD HEMATOLOGY ORDERABLE S Performing Organization Address City/[facility]/ZIP Co de Phone Number [facility] [place] [address] * EKG 12 Lead (06/23/2023 9:54 AM EDT) Ventricular rate 48 BPM MUSE SYSTEM Atrial Rate 48 BPM MUSE SYSTEM P-R Interval 192 ms MUSE SYSTEM QRS Duration 92 ms MUSE SYSTEM Q-T Interval 462 ms MUSE SYSTEM QTC Calculated (Bezet) 412 ms MUSE SYSTEM Calculated P [place] 21 degrees MUSE SYSTEM Calculated R [place] 20 degrees MUSE SYSTEM Calculated T [place] 16 degrees MUSE SYSTEM INTERPRETATION Sinus bradycardia [...] 4:12 AM EDT) Neutrophil % 52.8 % [facility] Neutrophil Absolute 4.30 1.70 - 6.10 x10(3)/[facility] Lymph % 33.9 % [facility] Lymphocytes Abs 2.8 0.9 - 3.2 x10(3)/[facility] Monocyte % 8.3 % [facility] Monocyte Abs 0.7 0.3 - 0.9 x10(3)/[facility] Eos % 3.9 % [facility] Eosinophils Abs 0.3 0.0 - 0.4 x10(3)/[facility] Basophil % 0.7 % [facility] Baso Absolute 0.1 0.0 - 0.1 x10(3)/[facility] Immature Gran % 0.40 % [facility] Comment: Immature granulocytes(IG's)percentage and absolute count will include metamyelocytes, myelocytes, and promyelocytes. Blood smears from CBCs yielding IG's will be scanned manually for concordance. If this scan disagrees with the automated IG or if promyelocytes are noted, a manual differential will be performed. Immature Gran Absolute 0.03 0.00 - 0.04 x10(3)/[facility] Blood 06/23/2023 4:12 AM EDT 06/23/2023 4:38 AM EDT Narrative Resulting Agency Comment Spec In Lab Terrence Keating MD HEMATOLOGY ORDERABLE S [facility] [address] * Hemogram (06/23/2023 4:12 AM EDT) White Blood Cell 8.2 4.0 - 9.5 x10(3)/[facility] Red Blood Cell 4.59 4.00 - 5.21 x10(6)/[facility] Hemoglobin 14.3 11.7 - 15.5 g/dL [facility] Hematocrit 43.1 35.7 - 45.8 % [facility] Mean Cell Volume 93.9 82.6 - 94.4 [facility] Mean Cell Hemoglobin 31.2 27.1 - 32.0 pg [facility] Mean Cell Hemoglobin Concentration 33.2 31.7 - 35.0 g/dL [facility] Platelet 233 145 - 357 x10(3)/[facility] RDW Standard Deviation 44.2 37.0 - 46.0 [facility] RDW coefficient of variation 13.0 11.5 - 14.1 % [facility] Mean Platelet Volume 11.3 7.6 - 12.9 [facility] NRBC% auto 0.0 % [facility] NRBC Absolute 0.000 0.000 - 0.000 x10(3)/[facility] Blood 06/23/2023 4:12 AM EDT 06/23/2023 4:38 AM EDT Narrative Resulting Agency Comment Spec In Lab Terrence Keating MD HEMATOLOGY ORDERABLE S [facility] [place] [address] * (ABNORMAL) Heparin (unfractionated) Level (06/23/2023 4:12 AM EDT) Pathologist [facility] UF Heparin 1.95(Crit ical) IU/mL [facility] ORDERABLE S [facility] [address] * (ABNORMAL) Basic Metabolic Panel (non-fasting) (06/23/2023 4:12 AM EDT) [facility] Glucose 87 65 - 199 mg/dL [facility] Comment:Diabetes: >=200 mg/d L plus symptoms Blood Urea Nitrogen 23(H) 8 - 18 mg/dL [facility] [...] 107 mmol/L [facility] Carbon Dioxide 22 22 - 31 mmol/L [facility] Anion Gap 12 5 - 15 mmol/L [facility] Calcium 9.3 8.5 - 10.5 mg/dL [facility] Est Glomerular Filtration Rate 61 >=60 mL/min/1. 73 m?? [facility] [...] Performing Organization Address [facility] Co de Phone Number [facility] [place] [address] * Phosphorus (06/23/2023 4:12 AM EDT) Phosphorus 4.5 2.5 - 4.5 mg/dL [facility] Blood 06/23/2023 4:12 AM EDT 06/23/2023 4:38 AM EDT Narrative Resulting Agency Comment Spec In Lab Eufemia Copeland MD CHEMISTRY ORDERABL ES Performing Organization Address City/[facility]/ZIP Co de Phone Number [facility] [place] [address] * Magnesium (06/23/2023 4:12 AM EDT) Magnesium 1.03 0.69 - 1.07 mmol/L [facility] Blood 06/23/2023 4:12 AM EDT 06/23/2023 4:38 AM EDT Narrative Resulting Agency Comment Spec In Lab Eufemia Copeland MD CHEMISTRY ORDERABL ES [facility] [place] [address] * ECHO LMTD W CONTRAST W LMTD SPEC DOPP COLOR DOPP (06/22/2023 4:25 PM EDT) Anatomical Region Laterality Modality Cardiac Other 06/22/2023 2:49 PM EDT Narrative 06/22/2023 4:42 PM EDT [address] [place] [address] ? Echocardiogram Report Name: ROHAN LOIDA ?Study Date: 06/22/2023 02:49 PM [facility]HR: 57 : 1970 ?Height: 162 cm ? Account: [id number] Age: 53 yrs ?Weight: 102 kg Gender: [...] slight decrease in LV systolic function. Procedure Complete-55585. Satisfactory quality. There is normal sinus rhythm. [...] Note Jose Gallegos MD - 06/22/2023 [address] [place] [address] Echocardiogram Report Name: LOIDA ROQUE Study Date: 06/22/2023 02:49 PM Patient Location: [address] HR:57 : 1970 Height: 162 cmAccount: [id number] Age: 53 yrs Weight: 102 kg Gender: [...] a slightdecrease in LV systolic function. Procedure Complete-[id number]. Satisfactory quality. There is normal sinus rhythm. [...] * (ABNORMAL) Troponin (06/22/2023 2:38 PM EDT) Pathologist [facility] Troponin-T, High Sensitivity 22(H) <=14 ng/L [facility] Comment: This patient's troponin T [...] [facility] Test Catalog Reference: Fourth Beeler Definition of Myocardial Infarction. Journal of the [employer] 2018;72:4384-2777 Blood 06/22/2023 2:38 PM EDT 06/22/2023 2:50 PM EDT Narrative Resulting Agency Comment Spec In Lab Ailyn Irvin MD CHEMISTRY ORDERABLES [facility] [place] [address] * Duplex for DVT, Arm, Unilat (06/22/2023 2:24 PM EDT) VB Text Report Department: Vascular Surgery Lab Patient: [id number] (ROHAN LOIDA) CPT: 47395 Referring Physician: AILYN IRVIN ?? Phone: Indications: [...] have questions please contact the health rn long term care that requested your imaging first. ? [...] who have questions please contactthe health rn long term care that requested your imaging first. Ailyn Irvin MD IMG DX ORDERABLES * (ABNORMAL) Troponin (06/22/2023 11:24 AM EDT) [facility] Troponin-T, High Sensitivity 22(H) <=14 ng/L [facility] Comment: This patient's troponin T [...] [facility] Test Catalog Reference: Fourth Beeler Definition of Myocardial Infarction. Journal of the [employer] 2018;72:[id number] Blood 06/22/2023 11:2 4 AM EDT 06/22/2023 11:44 AM EDT Narrative Resulting Agency Comment Spec In Lab Ailyn Irvin MD CHEMISTRY ORDERABLES [facility] [place] [address] * EKG 12 Lead (06/22/2023 11:13 AM EDT) Ventricular rate 63 BPM MUSE SYSTEM Atrial Rate 63 BPM MUSE SYSTEM P-R Interval 162 ms MUSE SYSTEM QRS Duration 86 ms MUSE SYSTEM Q-T Interval 382 ms MUSE SYSTEM QTC Calculated (Bezet) 390 ms MUSE SYSTEM Calculated P [place] 24 degrees MUSE SYSTEM Calculated R [place] 32 degrees MUSE SYSTEM Calculated T [place] -2 degrees MUSE SYSTEM INTERPRETATION Normal sinus rhythm Septal infarct (cited on or before 22-JUN-2023) Possible Lateral infarct , age undetermined ST & T wave abnormality, consider inferolateral ischemia Abnormal ECG When compared with ECG of 22-JUN-2023 10:55, No significant change was found Confirmed by MD Angelo Danette ([id number]) on 06/22/2023 3:56:31 PM MUSE SYSTEM 06/22/2023 [...] (Bezet) 411 ms MUSE SYSTEM Calculated P [place] 22 degrees MUSE SYSTEM Calculated R [place] 20 degrees MUSE SYSTEM Calculated T [place] 10 degrees MUSE SYSTEM INTERPRETATION Sinus bradycardia Septal infarct , age undetermined ST & T wave abnormality, consider inferolateral ischemia Abnormal ECG When compared with ECG of 21-JUN-2023 10:06, Septal infarct is now Present Confirmed by MD Angelo Danette ([id number]) on 06/22/2023 3:55:53 PM MUSE SYSTEM 06/22/2023 10:5 5 AM EDT 06/22/2023 3:55 PM EDT Ailyn Irvin MD ECG ORDERABLES MUSE SYSTEM * Differential, Automated (06/22/2023 4:34 AM EDT) Neutrophil % 54.4 % [facility] Neutrophil Absolute 4.07 1.70 - 6.10 x10(3)/[facility] LABORAT[facility] Lymph % 30.6 % [facility] Lymphocytes Abs 2.3 0.9 - 3.2 x10(3)/[facility] LABORATORY Monocyte % 9.9 % [facility] Monocyte Abs 0.7 0.3 - 0.9 x10(3)/[facility] LABOR[facility] Eos % 4.3 % [facility] Eosinophils Abs 0.3 0.0 - 0.4 x10(3)/[facility] Basophil % 0.7 % [facility] Baso Absolute 0.0 0.0 - 0.1 x10(3)/[facility] LABORATORY Immature Gran % 0.10 % [facility] Comment: Immature granulocytes(IG's)percentage and absolute count will include metamyelocytes, myelocytes, and promyelocytes. Blood smears from CBCs yielding IG's will be scanned manually for concordance. If this scan disagrees with the automated IG or if promyelocytes are noted, a manual differential will be performed. Immature Gran Absolute 0.01 0.00 - 0.04 x10(3)/[facility] Blood 06/22/2023 4:34 AM EDT 06/22/2023 4:42 AM EDT Narrative Resulting Agency Comment Spec In Lab Terrence Keating MD HEMATOLOGY ORDERABLE S [facility] [place] [address] * (ABNORMAL) Hemogram (06/22/2023 4:34 AM EDT) White Blood Cell 7.5 4.0 - 9.5 x10(3)/mc L [facility] Red Blood Cell 4.04 4.00 - 5.21 x10(6)/mc L [facility] Hemoglobin 12.8 11.7 - 15.5 g/dL [facility] Hematocrit 39.1 35.7 - 45.8 % [facility] Mean Cell Volume 96.8(H) 82.6 - 94.4 fL [facility] Mean Cell Hemoglobin 31.7 27.1 - 32.0 pg [facility] Mean Cell Hemoglobin Concentration 32.7 31.7 - 35.0 g/dL [facility] Platelet 225 145 - 357 x10(3)/mc L [facility] RDW Standard Deviation 45.9 37.0 - 46.0 fL [facility] RDW coefficient of variation 13.0 11.5 - 14.1 % [facility] Mean Platelet Volume 10.6 7.6 - 12.9 fL [facility] NRBC% auto 0.0 % [facility] NRBC Absolute 0.000 0.000 - 0.000 x10(3)/ L [facility] Blood 06/22/2023 4:34 AM EDT 06/22/2023 4:42 AM EDT Narrative Resulting Agency Comment Spec In Lab Terrence Keating MD HEMATOLOGY ORDERABLE S [facility] [place] [address] * (ABNORMAL) Basic Metabolic Panel (non-fasting) (06/22/2023 4:34 AM EDT) Pathologist [facility] Glucose 94 65 - 199 mg/dL [facility] Comment:Diabetes: >=200 mg/d L plus symptoms Blood Urea Nitrogen 22(H) 8 - 18 mg/dL [facility] [...] 107 mmol/L [facility] Carbon Dioxide 19(L) 22 - 31 mmol/L [facility] Anion Gap 17(H) 5 - 15 mmol/L [facility] Calcium 9.4 8.5 - 10.5 mg/dL [facility] Est Glomerular Filtration Rate 54(L) >=60 mL/min/1. 73 m?? [facility] [...] ORDERABL ES [facility] [place] [address] * (ABNORMAL) Phosphorus (06/22/2023 4:34 AM EDT) Phosphorus 4.9(H) 2.5 - 4.5 mg/dL [facility] Blood 06/22/2023 4:34 AM EDT 06/22/2023 4:42 AM EDT Narrative Resulting Agency Comment Spec In Lab Eufemia Copeland MD CHEMISTRY ORDERABL ES Performing Organization Address [facility] [place] [address] * Magnesium (06/22/2023 4:34 AM EDT) Magnesium 1.02 0.69 - 1.07 mmol/L [facility] Blood 06/22/2023 4:34 AM EDT 06/22/2023 4:42 AM EDT Narrative Resulting Agency Comment Spec In Lab Eufemia Copeland MD CHEMISTRY ORDERABL ES Performing Organization Address [facility] de Phone Number [facility] [place] [address] * CT Abdomen & Pelvis w Contrast [...] have questions please contact the health rn long term care that requested your imaging first. ? [...] who have questions please contactthe health rn long term care that requested your imaging first. Eufemia Copeland MD IMG CT ORDERABLES * EKG 12 Lead (06/21/2023 10:06 AM EDT) Ventricular rate 51 BPM MUSE SYSTEM Atrial Rate 51 BPM MUSE SYSTEM P-R Interval 176 ms MUSE SYSTEM QRS Duration 92 ms MUSE SYSTEM Q-T Interval 450 ms MUSE SYSTEM QTC Calculated (Bezet) 414 ms MUSE SYSTEM Calculated P [place] 17 degrees MUSE SYSTEM Calculated R [place] 35 degrees MUSE SYSTEM Calculated T [place] 13 degrees MUSE SYSTEM INTERPRETATION Sinus bradycardia [...] EDT) Troponin-T, High Sensitivity 22(H) <=14 ng/L [facility] Comment: This patient's troponin T [...] [facility] Test Catalog Reference: Fourth Beeler Definition of Myocardial Infarction. Journal of the [employer] 2018;72:[id number] Blood 06/21/2023 9:45 AM EDT 06/21/2023 10:08 AM EDT Narrative Resulting Agency Comment Spec In Lab Eufemia Copeland MD CHEMISTRY ORDERABL ES [facility] [address] * (ABNORMAL) pro-Brain Natriuretic Peptide (06/21/2023 5:58 AM EDT) NT-proBNP 1,370(H) <=124 pg/mL [facility] Blood Venous Draw / Unknown 06/21/2023 5:58 AM EDT 06/21/2023 7:28 AM EDT Narrative Resulting Agency Comment Spec In Lab Eufemia Copeland MD CHEMISTRY ORDERABL ES Performing Organization Address [facility] Co de Phone Number [facility] [place] [address] * Potassium (06/21/2023 5:58 AM EDT) Pathologist [facility] Potassium 4.0 3.5 - 5.0 mmol/L [facility] [...] Performing Organization Address [facility] Co de Phone Number [facility] [place] [address] * Differential, Automated (06/21/2023 3:25 AM EDT) Neutrophil % 54.0 % [facility] Neutrophil Absolute 5.02 1.70 - 6.10 x10(3)/[facility] LAB[facility] Lymph % 31.8 % [facility] Lymphocytes Abs 3.0 0.9 - 3.2 x10(3)/[facility] Monocyte % 8.9 % [facility] Monocyte Abs 0.8 0.3 - 0.9 x10(3)/[facility] Eos % 4.2 % [facility] Eosinophils Abs 0.4 0.0 - 0.4 x10(3)/[facility] Basophil % 0.8 % [facility] Baso Absolute 0.1 0.0 - 0.1 x10(3)/[facility] Immature Gran % 0.30 % [facility] Comment: Immature granulocytes(IG's)percentage and absolute count will include metamyelocytes, myelocytes, and promyelocytes. Blood smears from CBCs yielding IG's will be scanned manually for concordance. If this scan disagrees with the automated IG or if promyelocytes are noted, a manual differential will be performed. Immature Gran Absolute 0.03 0.00 - 0.04 x10(3)/[facility] Blood 06/21/2023 3:25 AM EDT 06/21/2023 3:45 AM EDT Narrative Resulting Agency Comment Spec In Lab Terrence Keating MD HEMATOLOGY ORDERABLE S Performing Organization Address City/State/[facility] Co de Phone Number [facility] [address] * Hemogram (06/21/2023 3:25 AM EDT) White Blood Cell 9.3 4.0 - 9.5 x10(3)/[facility] Red Blood Cell 4.74 4.00 - 5.21 x10(6)/[facility] Hemoglobin 14.9 11.7 - 15.5 g/dL [facility] Hematocrit 44.2 35.7 - 45.8 % [facility] Mean Cell Volume 93.2 82.6 - 94.4 fL [facility] Mean Cell Hemoglobin 31.4 27.1 - 32.0 pg [facility] Mean Cell Hemoglobin Concentration 33.7 31.7 - 35.0 g/dL [facility] Platelet 279 145 - 357 x10(3)/[facility] RDW Standard Deviation 44.7 37.0 - 46.0 fL [facility] RDW coefficient of variation 13.1 11.5 - 14.1 % [facility] Mean Platelet Volume 11.1 7.6 - 12.9 fL [facility] NRBC% auto 0.0 % [facility] NRBC Absolute 0.000 0.000 - 0.000 x10(3)/mcL [facility] Blood 06/21/2023 3:25 AM EDT 06/21/2023 3:45 AM EDT Narrative Resulting Agency Comment Spec In Lab Terrence Keating MD HEMATOLOGY ORDERABLE S [facility] [place] [address] * (ABNORMAL) Basic Metabolic Panel (non-fasting) (06/21/2023 3:25 AM EDT) Glucose 95 65 - 199 mg/dL [facility] Comment:Diabetes: >=200 mg/d L plus symptoms Blood Urea Nitrogen 27(H) 8 - 18 mg/dL [facility] Creatinine 1.11 0.70 - 1.20 mg/dL [facility] Sodium 138 135 - 145 mmol/L [facility] Potassium Not Perf 3.5 - 5.0 [facility] Comment: Unable to quantitate due to sample hemolysis. ??Sample redraw suggested. Called by: Kadi, Read back by: CHAYO MUNGUIA, Date/Time:06/21/23 04:25. Please note: ??Patients with WBC >100,000 may have falsely elevated Potassium levels. ??For accurate Potassium quantification in these patients send serum separator tube (gold top) for subsequent determinations. ??Contact the Clinical Chemistry Laboratory if there are any questions. Chloride 100 98 - 107 mmol/L [facility] Carbon Dioxide 26 22 - 31 mmol/L [facility] Anion Gap 12 5 - 15 mmol/L [facility] Calcium 9.7 8.5 - 10.5 mg/dL [facility] Est Glomerular Filtration Rate 59(L) >=60 mL/min/1. 73 m?? [facility] [...] MD CHEMISTRY ORDERABL ES Performing Organization Address [facility] de Phone Number [facility] [place] [address] * (ABNORMAL) Phosphorus (06/21/2023 3:25 AM EDT) Phosphorus 5.1(H) 2.5 - 4.5 mg/dL [facility] Blood 06/21/2023 3:25 AM EDT 06/21/2023 3:45 AM EDT Narrative Resulting Agency Comment Spec In Lab Eufemia Copeland MD CHEMISTRY ORDERABL ES Performing Organization Address [facility] Co de Phone Number [facility] [address] * Magnesium (06/21/2023 3:25 AM EDT) Magnesium 1.04 0.69 - 1.07 mmol/L [facility] Blood 06/21/2023 3:25 AM EDT 06/21/2023 3:45 AM EDT Narrative Resulting Agency Comment Spec In Lab Eufemia Copeland MD CHEMISTRY ORDERABL ES Performing Organization Address [facility]/ZIP Co de Phone Number [facility] [address] * (ABNORMAL) Differential, Automated (06/20/2023 3:32 AM EDT) Neutrophil % 52.5 % [facility] Neutrophil Absolute 5.28 1.70 - 6.10 x10(3)/mc L [facility] Lymph % 32.4 % [facility] Lymphocytes Abs 3.3(H) 0.9 - 3.2 x10(3)/mc L [facility] Monocyte % 9.7 % [facility] Monocyte Abs 1.0(H) 0.3 - 0.9 x10(3)/ L [facility] Eos % 4.3 % [facility] Eosinophils Abs 0.4 0.0 - 0.4 x10(3)/[facility] LABOR[facility]ORY Basophil % 0.7 % [facility] Baso Absolute 0.1 0.0 - 0.1 x10(3)/ L [facility] [...] Immature Gran Absolute 0.04 0.00 - 0.04 x10(3)/ L [facility] Blood 06/20/2023 3:32 AM EDT 06/20/2023 3:47 AM EDT Narrative Resulting Agency Comment Spec In Lab Terrence Keating MD HEMATOLOGY ORDERABLE S Performing Organization Address City/[facility]/ZIP Co de Phone Number [facility] [address] * (ABNORMAL) Hemogram (06/20/2023 3:32 AM EDT) White Blood Cell 10.1(H) 4.0 - 9.5 x10(3)/mc L [facility] Red Blood Cell 4.57 4.00 - 5.21 x10(6)/mc L [facility] Hemoglobin 14.2 11.7 - 15.5 g/dL [facility] Hematocrit 41.5 35.7 - 45.8 % [facility] Mean Cell Volume 90.8 82.6 - 94.4 fL [facility] Mean Cell Hemoglobin 31.1 27.1 - 32.0 pg [facility] Mean Cell Hemoglobin Concentration 34.2 31.7 - 35.0 g/dL [facility] Platelet 253 145 - 357 x10(3)/mc L [facility] RDW Standard Deviation 43.7 37.0 - 46.0 [facility] RDW coefficient of variation 13.2 11.5 - 14.1 % [facility] Mean Platelet Volume 10.8 7.6 - 12.9 fL [facility] NRBC% auto 0.0 % [facility] NRBC Absolute 0.000 0.000 - 0.000 x10(3)/mc L [facility] Blood 06/20/2023 3:32 AM EDT 06/20/2023 3:47 AM EDT Narrative Resulting Agency Comment Spec In Lab Terrence Keating MD HEMATOLOGY ORDERABLE S [facility] [address] * (ABNORMAL) Basic Metabolic Panel (non-fasting) (06/20/2023 3:32 AM EDT) Glucose 99 65 - 199 mg/dL [facility] Comment:Diabetes: >=200 mg/d L plus symptoms Blood Urea Nitrogen 26(H) 8 - 18 mg/dL [facility] [...] 107 mmol/L [facility] Carbon Dioxide 22 22 - 31 mmol/L [facility] Anion Gap 13 5 - 15 mmol/L [facility] Calcium 9.4 8.5 - 10.5 mg/dL [facility] Est Glomerular Filtration Rate 58(L) >=60 mL/min/1. 73 m?? [facility] [...] ORDERABL ES [facility] [address] * Phosphorus (06/20/2023 3:32 AM EDT) Phosphorus 4.3 2.5 - 4.5 mg/dL [facility] Blood 06/20/2023 3:32 AM EDT 06/20/2023 3:47 AM EDT Narrative Resulting Agency Comment Spec In Lab Eufemia Copeland MD CHEMISTRY ORDERABL ES Performing Organization Address [facility] de Phone Number [facility] [address] * Magnesium (06/20/2023 3:32 AM EDT) Magnesium 1.00 0.69 - 1.07 mmol/L [facility] Blood 06/20/2023 3:32 AM EDT 06/20/2023 3:47 AM EDT Narrative Resulting Agency Comment Spec In Lab Eufemia Copeland MD CHEMISTRY ORDERABL ES Performing Organization Address [facility] Phone Number [facility] [address] * Phosphorus (06/19/2023 5:26 PM EDT) Phosphorus 4.0 2.5 - 4.5 mg/dL [facility] Blood 06/19/2023 5:26 PM EDT 06/19/2023 5:32 PM EDT Narrative Resulting Agency Comment Spec In Lab Eufemia Copeland MD CHEMISTRY ORDERABL ES Performing Organization Address [facility] de Phone Number [facility] [place] [address] * Magnesium (06/19/2023 5:26 PM EDT) Magnesium 0.98 0.69 - 1.07 mmol/L [facility] Blood 06/19/2023 5:26 PM EDT 06/19/2023 5:32 PM EDT Narrative Resulting Agency Comment Spec In Lab Eufemia Copeland MD CHEMISTRY ORDERABL ES Performing Organization Address [facility]/State/ZIP Co de Phone Number [facility] [address] * (ABNORMAL) Basic Metabolic Panel (non-fasting) (06/19/2023 5:26 PM EDT) Glucose 105 65 - 199 mg/dL [facility] Comment:Diabetes: >=200 mg/d L plus symptoms Blood Urea Nitrogen 21(H) 8 - 18 mg/dL [facility] [...] 107 mmol/L [facility] Carbon Dioxide 22 22 - 31 mmol/L [facility] Anion Gap 14 5 - 15 mmol/L [facility] Calcium 9.5 8.5 - 10.5 mg/dL [facility] Est Glomerular Filtration Rate 62 >=60 mL/min/1. 73 m?? [facility] [...] Performing Organization Address [facility]/ZIP Co de Phone Number [facility] [address] * EKG 12 Lead (06/19/2023 4:24 AM EDT) Ventricular rate 66 BPM MUSE SYSTEM Atrial Rate 66 BPM MUSE SYSTEM P-R Interval 188 ms MUSE SYSTEM QRS Duration 92 ms MUSE SYSTEM Q-T Interval 484 ms MUSE SYSTEM QTC Calculated (Bezet) 507 ms MUSE SYSTEM Calculated P [place] 32 degrees MUSE SYSTEM Calculated R [place] 22 degrees MUSE SYSTEM Calculated T [place] 47 degrees MUSE SYSTEM INTERPRETATION Normal sinus rhythm Nonspecific ST abnormality Prolonged QT Abnormal ECG When compared with ECG of 15-JUN-2023 10:50, No significant change was found Confirmed by MD AKIRA, CINDY ([id number]) on 06/19/2023 2:42:42 PM MUSE SYSTEM 06/19/2023 4:24 AM EDT 06/19/2023 2:42 PM EDT Terrence Keating MD ECG ORDERABLES Performing Organization Address [facility]/ZIP Co de Phone Number MUSE SYSTEM * (ABNORMAL) Basic Metabolic Panel (non-fasting) (06/19/2023 3:22 AM EDT) Glucose 101 65 - 199 mg/dL [facility] Comment:Diabetes: >=200 mg/d L plus symptoms Blood Urea Nitrogen 24(H) 8 - 18 mg/dL [facility] [...] 107 mmol/L [facility] Carbon Dioxide Not Perf [facility] Comment:Add-on request. Samp le too old to perform test. Anion Gap Unable to Calculate 5 - 15 mmol/L [facility] Calcium 9.4 8.5 - 10.5 mg/dL [facility] Est Glomerular Filtration Rate 64 >=60 mL/min/1 .73 m?? [facility] [...] ORDERABL ES [facility] [place] [address] * Differential, Automated (06/19/2023 3:22 AM EDT) Neutrophil % 54.0 % [facility] Neutrophil Absolute 5.08 1.70 - 6.10 x10(3)/[facility] LABORATORY Lymph % 30.7 % [facility] Lymphocytes Abs 2.9 0.9 - 3.2 x10(3)/[facility] Monocyte % 10.0 % [facility] Monocyte Abs 0.9 0.3 - 0.9 x10(3)/[facility] Eos % 4.5 % [facility] Eosinophils Abs 0.4 0.0 - 0.4 x10(3)/[facility] Basophil % 0.6 % [facility] Baso Absolute 0.1 0.0 - 0.1 x10(3)/[facility] LAB[facility] Immature Gran % 0.20 % [facility] Comment: Immature granulocytes(IG's)percentage and absolute count will include metamyelocytes, myelocytes, and promyelocytes. Blood smears from CBCs yielding IG's will be scanned manually for concordance. If this scan disagrees with the automated IG or if promyelocytes are noted, a manual differential will be performed. Immature Gran Absolute 0.02 0.00 - 0.04 x10(3)/[facility] Blood 06/19/2023 3:22 AM EDT 06/19/2023 3:47 AM EDT Narrative Resulting Agency Comment Spec In Lab Terrence Keating MD HEMATOLOGY ORDERABLE S Performing Organization Address City/State/[facility] Co de Phone Number [facility] [place] [address] * Hemogram (06/19/2023 3:22 AM EDT) White Blood Cell 9.4 4.0 - 9.5 x10(3)/[facility] LAB[facility] Red Blood Cell 4.48 4.00 - 5.21 x10(6)/[facility] Hemoglobin 13.9 11.7 - 15.5 g/dL [facility] LABORATORY Hematocrit 41.7 35.7 - 45.8 % [facility] Mean Cell Volume 93.1 82.6 - 94.4 fL [facility] Mean Cell Hemoglobin 31.0 27.1 - 32.0 pg [facility] Mean Cell Hemoglobin Concentration 33.3 31.7 - 35.0 g/dL [facility] Platelet 244 145 - 357 x10(3)/[facility] LABORATORY RDW Standard Deviation 44.2 37.0 - 46.0 fL [facility] RDW coefficient of variation 12.9 11.5 - 14.1 % [facility] Mean Platelet Volume 10.9 7.6 - 12.9 fL [facility] NRBC% auto 0.0 % [facility] NRBC Absolute 0.000 0.000 - 0.000 x10(3)/mcL [facility] Blood 06/19/2023 3:22 AM EDT 06/19/2023 3:47 AM EDT Narrative Resulting Agency Comment Spec In Lab Terrence Keating MD HEMATOLOGY ORDERABLE S Performing Organization Address [facility] Co de Phone Number [facility] [place] [address] * Phosphorus (06/19/2023 3:22 AM EDT) Phosphorus 4.1 2.5 - 4.5 mg/dL [facility] Blood 06/19/2023 3:22 AM EDT 06/19/2023 3:47 AM EDT Narrative Resulting Agency Comment Spec In Lab Eufemia Copeland MD CHEMISTRY ORDERABL ES Performing Organization Address [facility] Co de Phone Number [facility] [place] [address] * Magnesium (06/19/2023 3:22 AM EDT) Magnesium 1.00 0.69 - 1.07 mmol/L [facility] Blood 06/19/2023 3:22 AM EDT 06/19/2023 3:47 AM EDT Narrative Resulting Agency Comment Spec In Lab Eufemia Copeland MD CHEMISTRY ORDERABL ES Performing Organization Address [facility] Co de Phone Number [facility] [place] [address] * (ABNORMAL) Basic Metabolic Panel (non-fasting) (06/18/2023 5:17 PM EDT) Glucose 115 65 - 199 mg/dL [facility] Comment:Diabetes: >=200 mg/d L plus symptoms Blood Urea Nitrogen 22(H) 8 - 18 mg/dL [facility] 107 mmol/L [facility] Carbon Dioxide 22 22 - 31 mmol/L [facility] Anion Gap 14 5 - 15 mmol/L [facility] Calcium 9.6 8.5 - 10.5 mg/dL [facility] Est Glomerular Filtration Rate 58(L) >=60 mL/min/1. 73 m?? [facility] [...] ORDERABL ES [facility] [place] [address] * (ABNORMAL) Basic Metabolic Panel (non-fasting) (06/18/2023 4:19 AM EDT) Glucose 96 65 - 199 mg/dL [facility] Comment:Diabetes: >=200 mg/d L plus symptoms Blood Urea Nitrogen 22(H) 8 - 18 mg/dL [facility] [...] 107 mmol/L [facility] Carbon Dioxide Not Perf 22 - 31 [facility] Comment:Add-on request. Samparish le too old to perform test. Anion Gap Unable to Calculate 5 - 15 mmol/L [facility] Calcium 9.5 8.5 - 10.5 mg/dL [facility] Est Glomerular Filtration Rate 73 >=60 mL/min/1 .73 m?? [facility] [...] Lab Eufemia Copleand [place] [address] * Differential, Automated (06/18/2023 4:19 AM EDT) Pathologist [facility] Neutrophil % 54.1 % [facility] Neutrophil Absolute 4.52 1.70 - 6.10 x10(3)/[facility] LABORATORY Lymph % 31.0 % [facility] Lymphocytes Abs 2.6 0.9 - 3.2 x10(3)/[facility] LABORATORY Monocyte % 9.2 % [facility] Monocyte Abs 0.8 0.3 - 0.9 x10(3)/[facility] LABORATORY Eos % 4.9 % [facility] Eosinophils Abs 0.4 0.0 - 0.4 x10(3)/[facility] LABORATORY Basophil % 0.6 % [facility] Baso Absolute 0.0 0.0 - 0.1 x10(3)/[facility] [place] [place] Immature Gran % 0.20 % [facility] Comment: Immature granulocytes(IG's)percentage and absolute count will include metamyelocytes, myelocytes, and promyelocytes. Blood smears from CBCs yielding IG's will be scanned manually for concordance. If this scan disagrees with the automated IG or if promyelocytes are noted, a manual differential will be performed. Immature Gran Absolute 0.02 0.00 - 0.04 x10(3)/[facility] LABORATORY Blood 06/18/2023 4:19 AM EDT 06/18/2023 4:40 AM EDT Narrative Resulting Agency Comment Spec In Lab Terrence Keating [place] [address] * Hemogram (06/18/2023 4:19 AM EDT) [facility] White Blood Cell 8.4 4.0 - 9.5 x10(3)/[facility] LABORATORY Red Blood Cell 4.70 4.00 - 5.21 x10(6)/[facility] LABORATORY Hemoglobin 14.5 11.7 - 15.5 g/dL [facility] Hematocrit 42.8 35.7 - 45.8 % [facility] Mean Cell Volume 91.1 82.6 - 94.4 fL [facility] Mean Cell Hemoglobin 30.9 27.1 - 32.0 pg [facility] Mean Cell Hemoglobin Concentration 33.9 31.7 - 35.0 g/dL [facility] Platelet 258 145 - 357 x10(3)/[facility] LABORATORY RDW Standard Deviation 43.6 37.0 - 46.0 [facility] LABORATORY RDW coefficient of variation 13.0 11.5 - 14.1 % [facility] Mean Platelet Volume 10.7 7.6 - 12.9 [facility] LABORATORY NRBC% auto 0.0 % [facility] NRBC Absolute 0.000 0.000 - 0.000 x10(3)/[facility] LABORATORY Blood 06/18/2023 4:19 AM EDT 06/18/2023 4:40 AM EDT Narrative Resulting Agency Comment Spec In Lab Terrence Keating MD HEMATOLOGY ORDERABLE S Performing Organization Address City/[facility]/ZIP Co de Phone Number [facility] [place] [address] * Phosphorus (06/18/2023 4:19 AM EDT) Phosphorus 3.7 2.5 - 4.5 mg/dL [facility] Blood 06/18/2023 4:19 AM EDT 06/18/2023 4:40 AM EDT Narrative Resulting Agency Comment Spec In Lab Eufemia Copeland MD CHEMISTRY ORDERABL ES Performing Organization Address City/[facility]/ZIP Co de Phone Number [facility] [place] [address] * Magnesium (06/18/2023 4:19 AM EDT) Magnesium 1.02 0.69 - 1.07 mmol/L [facility] Blood 06/18/2023 4:19 AM EDT 06/18/2023 4:40 AM EDT Narrative Resulting Agency Comment Spec In Lab Eufemia Copeland MD CHEMISTRY ORDERABL ES Performing Organization Address [facility] Co de Phone Number [facility] [place] [address] * Phosphorus (06/17/2023 2:26 PM EDT) Pathologist [facility] Phosphorus 2.8 2.5 - 4.5 mg/dL [facility] Blood 06/17/2023 2:26 PM EDT 06/17/2023 2:36 PM EDT Narrative Resulting Agency Comment Spec In Lab Eufemia Copeland MD CHEMISTRY ORDERABL ES Performing Organization Address [facility] Co de Phone Number [facility] [place] [address] * Magnesium (06/17/2023 2:26 PM EDT) Magnesium 1.01 0.69 - 1.07 mmol/L [facility] Blood 06/17/2023 2:26 PM EDT 06/17/2023 2:36 PM EDT Narrative Resulting Agency Comment Spec In Lab Eufemia Copeland MD CHEMISTRY ORDERABL ES Performing Organization Address [facility] Co de Phone Number [facility] [place] [address] * (ABNORMAL) Basic Metabolic Panel (non-fasting) (06/17/2023 2:26 PM EDT) Glucose 103 65 - 199 mg/dL [facility] Comment:Diabetes: >=200 mg/d L plus symptoms Blood Urea Nitrogen 21(H) 8 - 18 mg/dL [facility] [...] 107 mmol/L [facility] Carbon Dioxide 24 22 - 31 mmol/L [facility] Anion Gap 14 5 - 15 mmol/L [facility] Calcium 9.6 8.5 - 10.5 mg/dL [facility] Est Glomerular Filtration Rate 62 >=60 mL/min/1. 73 m?? [facility] [...] ORDERABL ES [facility] [place] [address] * XR Abdomen Flat & Upright (06/17/2023 [...] have questions please contact the health rn long term care that requested your imaging first. ? Narrative 06/17/2023 5:30 PM EDT EXAMINATION: XR ABDOMEN FLAT AND UPRIGHT CLINICAL HISTORY: patient with foul odor from [facility]. hx hysterectomy, LLQ tenderness, constipation TECHNIQUE: [...] CLINICAL HISTORY: [facility], LLQ tenderness, constipation TECHNIQUE: Supine [...] who have questions please contactthe health rn long term care that requested your imaging first. Eufemia Copeland MD IMG DX ORDERABLES * (ABNORMAL) Basic Metabolic Panel (non-fasting) (06/17/2023 5:01 AM EDT) Glucose 100 65 - 199 mg/dL [facility] Comment:Diabetes: >=200 mg/d L plus symptoms Blood Urea Nitrogen 24(H) 8 - 18 mg/dL [facility] [...] 107 mmol/L [facility] Carbon Dioxide 24 22 - 31 mmol/L [facility] Anion Gap 12 5 - 15 mmol/L [facility] Calcium 9.5 8.5 - 10.5 mg/dL [facility] Est Glomerular Filtration Rate 65 >=60 mL/min/1. 73 m?? [facility] [...] CHEMISTRY ORDERABLES [facility] [place] [place] [address] * Differential, Automated (06/17/2023 1:11 AM EDT) Neutrophil % 54.5 % [facility] Neutrophil Absolute 5.20 1.70 - 6.10 x10(3)/[facility] LABORATORY Lymph % 31.4 % [facility] Lymphocytes Abs 3.0 0.9 - 3.2 x10(3)/[facility] LABORATORY Monocyte % 9.8 % [facility] Monocyte Abs 0.9 0.3 - 0.9 x10(3)/[facility] LABORATORY Eos % 3.4 % [facility] Eosinophils Abs 0.3 0.0 - 0.4 x10(3)/[facility] LABORATORY Basophil % 0.5 % [facility] Baso Absolute 0.0 0.0 - 0.1 x10(3)/[facility] LABORATORY Immature Gran % 0.40 % [facility] Comment: Immature granulocytes(IG's)percentage and absolute count will include metamyelocytes, myelocytes, and promyelocytes. Blood smears from CBCs yielding IG's will be scanned manually for concordance. If this scan disagrees with the automated IG or if promyelocytes are noted, a manual differential will be performed. Immature Gran Absolute 0.04 0.00 - 0.04 x10(3)/[facility] LABORATORY Blood 06/17/2023 1:11 AM EDT 06/17/2023 1:16 AM EDT Narrative Resulting Agency Comment Spec In Lab Terrence Keating MD HEMATOLOGY ORDERABLE S [facility] [place] [address] * Hemogram (06/17/2023 1:11 AM EDT) White Blood Cell 9.5 4.0 - 9.5 x10(3)/[facility] LABORATORY Red Blood Cell 4.60 4.00 - 5.21 x10(6)/[facility] LABORATORY Hemoglobin 14.2 11.7 - 15.5 g/dL [facility] Hematocrit 43.0 35.7 - 45.8 % [facility] Mean Cell Volume 93.5 82.6 - 94.4 fL [facility] Mean Cell Hemoglobin 30.9 27.1 - 32.0 pg [facility] Mean Cell Hemoglobin Concentration 33.0 31.7 - 35.0 g/dL [facility] Platelet 256 145 - 357 x10(3)/[facility] LABORATORY RDW Standard Deviation 45.0 37.0 - 46.0 fL [facility] RDW coefficient of variation 13.2 11.5 - 14.1 % [facility] Mean Platelet Volume 10.9 7.6 - 12.9 fL [facility] NRBC% auto 0.0 % [facility] NRBC Absolute 0.000 0.000 - 0.000 x10(3)/[facility] LABORATORY Blood 06/17/2023 1:11 AM EDT 06/17/2023 1:16 AM EDT Narrative Resulting Agency Comment Spec In Lab Terrence Keating MD HEMATOLOGY ORDERABLE S [facility] [place] [address] * Magnesium (06/17/2023 1:11 AM EDT) Magnesium 0.96 0.69 - 1.07 mmol/L [facility] Blood 06/17/2023 1:11 AM EDT 06/17/2023 1:16 AM EDT Narrative Resulting Agency Comment Spec In Lab Eufemia Copeland MD CHEMISTRY ORDERABL ES [facility] [place] [address] * (ABNORMAL) Basic Metabolic Panel (non-fasting) (06/17/2023 1:11 AM EDT) Glucose 102 65 - 199 mg/dL [facility] Comment:Diabetes: >=200 mg/d L plus symptoms Blood Urea Nitrogen 24(H) 8 - 18 mg/dL [facility] [...] 107 mmol/L [facility] Carbon Dioxide 24 22 - 31 mmol/L [facility] Anion Gap 13 5 - 15 mmol/L [facility] Calcium 9.2 8.5 - 10.5 mg/dL [facility] Est Glomerular Filtration Rate 61 >=60 mL/min/1. 73 m?? [facility] [...] CHEMISTRY ORDERABLES [facility] [place] [address] * (ABNORMAL) Basic Metabolic Panel (non-fasting) (06/16/2023 8:28 PM EDT) Glucose 111 65 - 199 mg/dL [facility] Comment:Diabetes: >=200 mg/d L plus symptoms Blood Urea Nitrogen 23(H) 8 - 18 mg/dL [facility] [...] 107 mmol/L [facility] Carbon Dioxide 26 22 - 31 mmol/L [facility] Anion Gap 12 5 - 15 mmol/L [facility] Calcium 9.3 8.5 - 10.5 mg/dL [facility] Est Glomerular Filtration Rate 53(L) >=60 mL/min/1. 73 m?? [facility] [...] ORDERABL ES [facility] [address] * (ABNORMAL) Basic Metabolic Panel (non-fasting) (06/16/2023 2:29 PM EDT) Glucose 175 65 - 199 mg/dL [facility] Comment:Diabetes: >=200 mg/d L plus symptoms Blood Urea Nitrogen 25(H) 8 - 18 mg/dL [facility] [...] 107 mmol/L [facility] Carbon Dioxide 26 22 - 31 mmol/L [facility] Anion Gap 13 5 - 15 mmol/L [facility] Calcium 9.3 8.5 - 10.5 mg/dL [facility] Est Glomerular Filtration Rate 50(L) >=60 mL/min/1. 73 m?? [facility] [...] ORDERABL ES [facility] [place] [address] * (ABNORMAL) Basic Metabolic Panel (non-fasting) (06/16/2023 9:01 AM EDT) Glucose 148 65 - 199 mg/dL [facility] Comment:Diabetes: >=200 mg/d L plus symptoms Blood Urea Nitrogen 27(H) 8 - 18 mg/dL [facility] Creatinine 1.27(H) 0.70 - 1.20 mg/dL [facility] Sodium 136 135 - 145 mmol/L [facility] Potassium 2.9(Criti edy) 3.5 - 5.0 mmol/L [facility] Comment: called by tmp /read back by (Malia Mcintyre)/ 06/16/23 @696 Please note: ??Patients with WBC >100,000 may have falsely elevated Potassium levels. ??For accurate Potassium quantification in these patients send serum separator tube (gold top) for subsequent determinations. ??Contact the Clinical Chemistry Laboratory if there are any questions. Chloride 91(L) 98 - 107 mmol/L [facility] Carbon Dioxide 32(H) 22 - 31 mmol/L [facility] Anion Gap 13 5 - 15 mmol/L [facility] Calcium 9.7 8.5 - 10.5 mg/dL [facility] Est Glomerular Filtration Rate 50(L) >=60 mL/min/1. 73 m?? [facility] [...] MD CHEMISTRY ORDERABL ES Performing Organization Address City/[facility]/ZIP Co de Phone Number [facility] [place] [address] * (ABNORMAL) Magnesium (06/16/2023 3:30 AM EDT) Magnesium 1.09(H) 0.69 - 1.07 mmol/L [facility] Blood Venous Draw / Unknown 06/16/2023 3:30 AM EDT 06/16/2023 3:38 AM EDT Narrative Resulting Agency Comment Spec In Lab Eufemia Copeland MD CHEMISTRY ORDERABL ES [facility] [place] [address] * (ABNORMAL) Differential, Automated (06/16/2023 3:30 AM EDT) Neutrophil % 50.4 % [facility] Neutrophil Absolute 4.15 1.70 - 6.10 x10(3)/mc L [facility] Lymph % 33.7 % [facility] Lymphocytes Abs 2.8 0.9 - 3.2 x10(3)/[facility] LABORATORY Monocyte % 11.8 % [facility] Monocyte Abs 1.0(H) 0.3 - 0.9 x10(3)/[facility] LABORATORY Eos % 3.3 % [facility] Eosinophils Abs 0.3 0.0 - 0.4 x10(3)/[facility] LABORATORY Basophil % 0.6 % [facility] Baso Absolute 0.0 0.0 - 0.1 x10(3)/[facility] LABORATORY Immature Gran % 0.20 % [facility] Comment: Immature granulocytes(IG's)percentage and absolute count will include metamyelocytes, myelocytes, and promyelocytes. Blood smears from CBCs yielding IG's will be scanned manually for concordance. If this scan disagrees with the automated IG or if promyelocytes are noted, a manual differential will be performed. Immature Gran Absolute 0.02 0.00 - 0.04 x10(3)/[facility] LABORATORY Blood 06/16/2023 3:30 AM EDT 06/16/2023 3:37 AM EDT Narrative Resulting Agency Comment Spec In Lab Terrence Keating MD HEMATOLOGY ORDERABLE S [facility] [place] [address] * Hemogram (06/16/2023 3:30 AM EDT) White Blood Cell 8.2 4.0 - 9.5 x10(3)/[facility] LABORATORY Red Blood Cell 4.69 4.00 - 5.21 x10(6)/[facility] LABORATORY Hemoglobin 14.5 11.7 - 15.5 g/dL [facility] Hematocrit 42.7 35.7 - 45.8 % [facility] Mean Cell Volume 91.0 82.6 - 94.4 fL [facility] Mean Cell Hemoglobin 30.9 27.1 - 32.0 pg [facility] Mean Cell Hemoglobin Concentration 34.0 31.7 - 35.0 g/dL [facility] Platelet 260 145 - 357 x10(3)/[facility] LABORATORY RDW Standard Deviation 43.5 37.0 - 46.0 fL [facility] RDW coefficient of variation 13.0 11.5 - 14.1 % [facility] Mean Platelet Volume 11.1 7.6 - 12.9 fL [facility] NRBC% auto 0.0 % [facility] NRBC Absolute 0.000 0.000 - 0.000 x10(3)/[facility] LABORATORY Blood 06/16/2023 3:30 AM EDT 06/16/2023 3:37 AM EDT Narrative Resulting Agency Comment Spec In Lab Terrence Keating MD HEMATOLOGY ORDERABLE S [facility] [place] [address] * (ABNORMAL) Basic Metabolic Panel (non-fasting) (06/16/2023 3:30 AM EDT) Glucose 110 65 - 199 mg/dL [facility] Comment:Diabetes: >=200 mg/d L plus symptoms Blood Urea Nitrogen 28(H) 8 - 18 mg/dL [facility] Creatinine 1.20 0.70 - 1.20 mg/dL [facility] Sodium 135 135 - 145 mmol/L [facility] Potassium 2.7(Criti edy) 3.5 - 5.0 mmol/L [facility] Comment: called by [place] /read back by Jolly Friedman / 06/16/23 [id number] Please note: ??Patients with WBC >100,000 may have falsely elevated Potassium levels. ??For accurate Potassium quantification in these patients send serum separator tube (gold top) for subsequent determinations. ??Contact the Clinical Chemistry Laboratory if there are any questions. Chloride 90(L) 98 - 107 mmol/L [facility] Carbon Dioxide 33(H) 22 - 31 mmol/L [facility] Anion Gap 12 5 - 15 mmol/L [facility] Calcium 9.2 8.5 - 10.5 mg/dL [facility] Est Glomerular Filtration Rate 54(L) >=60 mL/min/1. 73 m?? [facility] [...] ORDERABL ES [facility] [place] [address] * Heparin (unfractionated) Level (06/16/2023 3:30 AM EDT) UF Heparin 0.64 IU/mL [facility] Comment: Heparin [...] ORDERABLE S [facility] [place] [address] * Lipid Panel (Reflex Direct LDL) (06/16/2023 3:30 AM EDT) Cholesterol, Total 190 mg/dL [facility] Comment: Desirable: ? <200 mg/dL Borderline High: 200-239 mg/dL Higher: ?>ie=547 mg/dL Triglyceride 126 mg/dL [facility] Comment: Normal: ?<150 mg/dL Borderline High: 150-199 mg/dL High: ?200-499 mg/dL Very High: ? >lz=919 mg/dL HDL Cholesterol 50 mg/dL [facility] Comment: Females: High Risk: <50 mg/dL Males: High Risk: <40 mg/dL LDL Cholesterol 115 mg/dL [facility] Comment: Desirable: ? <100 mg/dL Above Desirable: 100-129 mg/dL Borderline High: 130-159 mg/dL High: ?160-189 mg/dL Very High: ? >sw=973 mg/dL Lipid Interpretation See Note [facility] [...] ACC/AHA Guidelines (most recently Ysabel et al. [facility] 12/09/21): For individuals with atherosclerotic cardiovascular disease (ASCVD)or LDL >ex=545 mg/dL, use a high-intensity statin (40-80 mg [...] In Lab Terrence Keating [place] [address] * (ABNORMAL) Basic Metabolic Panel (non-fasting) (06/15/2023 9:33 PM EDT) Glucose 120 65 - 199 mg/dL [facility] Comment:Diabetes: >=200 mg/d L plus symptoms Blood Urea Nitrogen 29(H) 8 - 18 mg/dL [facility] 107 mmol/L [facility] Carbon Dioxide 31 22 - 31 mmol/L [facility] Anion Gap 12 5 - 15 mmol/L [facility] Calcium 9.4 8.5 - 10.5 mg/dL [facility] Est Glomerular Filtration Rate 45(L) >=60 mL/min/1. 73 m?? [facility] ORDERABL ES [facility] [place] [address] * Heparin (unfractionated) Level (06/15/2023 9:33 PM EDT) [facility] UF Heparin 0.63 IU/mL [facility] Comment: Heparin [...] ORDERABLE S [facility] [place] [place] [address] * (ABNORMAL) Magnesium (06/15/2023 5:47 PM EDT) [facility] Magnesium 1.10(H) 0.69 - 1.07 mmol/L [facility] Blood Venous Draw / Unknown 06/15/2023 5:47 PM EDT 06/15/2023 6:10 PM EDT Narrative Resulting Agency Comment Spec In Lab Terrence Keating MD CHEMISTRY ORDERABLES [facility] [place] [address] * (ABNORMAL) Basic Metabolic Panel (non-fasting) (06/15/2023 5:47 PM EDT) [facility] Glucose 147 65 - 199 mg/dL [facility] Comment:Diabetes: >=200 mg/d L plus symptoms Blood Urea Nitrogen 29(H) 8 - 18 mg/dL [facility] Creatinine 1.20 0.70 - 1.20 mg/dL [facility] Sodium 134(L) 135 - 145 mmol/L [facility] Potassium 2.9(Criti edy) 3.5 - 5.0 mmol/L [facility] Comment: Called by: richard, Read back by: qamar ren, Date/Time:06/15/23 19:11. Please note: ??Patients with WBC >100,000 may have falsely elevated Potassium levels. ??For accurate Potassium quantification in these patients send serum separator tube (gold top) for subsequent determinations. ??Contact the Clinical Chemistry Laboratory if there are any questions. Chloride 89(L) 98 - 107 mmol/L [facility] Carbon Dioxide 29 22 - 31 mmol/L [facility] Anion Gap 16(H) 5 - 15 mmol/L [facility] Calcium 9.1 8.5 - 10.5 mg/dL [facility] Est Glomerular Filtration Rate 54(L) >=60 mL/min/1. 73 m?? [facility] ORDERABL ES [facility] [place] [address] * Rapid Drug Screen w/o Confirmation, Urine (06/15/2023 4:46 PM EDT) Pathologist [facility] Barbiturates Screen, Urine None Detected None Detected [facility] Benzodiazepines Screen, Urine None Detected None Detected [facility] Cocaine Screen, Urine None Detected None Detected [facility] Metabolites Screen, Urine None Detected None Detected [facility] Opiate Screen, Urine None Detected None Detected [facility] Cannabinoid Screen, Urine None Detected None Detected [facility] Comment: The marijuana metabolites screen detects the THC metabolite (39-ntm-4-carboxy-delta 9-THC) at concentrations >20 ng/mL. A ? Presumptive Positive? result indicates that the screening result was positive but has not yet been confirmed by a highly-specific method. As with any screen, occasional false positive results from cross-reacting substances may occur. Not for Medico-Legal Purposes. Oxycodone Screen, Urine None Detected None Detected [facility] Buprenorphine Screen, Urine None Detected None Detected [facility] [...] characteristics of this test were determined by [facility] in accordance with CLIA requirements. This laboratory is qualified under CLIA to perform high-complexity testing. Fentanyl Screen, Urine None Detected None Detected [facility] [...] characteristics of this test were determined by [facility] in accordance with CLIA requirements. This laboratory is qualified under CLIA to perform high-complexity testing. Tricyclics Screen, Urine None Detected None Detected [facility] [...] characteristics of this test were determined by [facility] in accordance with CLIA requirements. This laboratory is qualified under CLIA to perform high-complexity testing. Ethanol Screen, Urine None Detected None Detected [facility] Comment:This urine ethanol a ssay detects ethanol at concentrations >/= 100 mg/L. Amphetamines Screen, Urine None Detected None Detected [facility] [...] Specimen Validity Test, Urine 39 >=20 mg/dL [facility] Chromate Specimen Validity Test, Urine <2.0 <=49.9 mg/L [facility] Nitrite Specimen Validity Test, Urine <50 <=499 mg/L [facility] Oxidant Specimen Validity Test, Urine 12 <=199 mg/L [facility] pH Specimen Validity Test, Urine 5.4 3.0 - 10.9 [facility] Adulterants Screen, Urine None Detected None Detected [facility] Comment:No adulteration of t his urine sample was detected. Urine 06/15/2023 4:46 PM EDT 06/15/2023 5:30 PM EDT Narrative Resulting Agency Comment Spec In Lab Eufemia Copeland MD CHEMISTRY ORDERABL ES Performing Organization Address [facility]/ZIP Co de Phone Number [facility] [place] [address] * Rapid Drug Screen, Urine (TEE Request) (06/15/2023 4:46 PM EDT) TEE Conf Requested No [facility] TEE Requested See Comment [facility] Comment:Refer to Rapid Drug Screen w/o Confirmation, Urine for results. Urine 06/15/2023 4:46 PM EDT 06/15/2023 5:30 PM EDT Narrative Resulting Agency Comment Spec In Lab Eufemia Copeland MD URINE ORDERABLES Performing Organization Address [facility] Co de Phone Number [facility] [address] * (ABNORMAL) Basic Metabolic Panel (non-fasting) (06/15/2023 2:29 PM EDT) Glucose 141 65 - 199 mg/dL [facility] Comment:Diabetes: >=200 mg/d L plus symptoms Blood Urea Nitrogen 31(H) 8 - 18 mg/dL [facility] [...] 107 mmol/L [facility] Carbon Dioxide 32(H) 22 - 31 mmol/L [facility] Anion Gap 11 5 - 15 mmol/L [facility] Calcium 9.6 8.5 - 10.5 mg/dL [facility] Est Glomerular Filtration Rate 53(L) >=60 mL/min/1. 73 m?? [facility] [...] ORDERABL ES [facility] [place] [address] * Heparin (unfractionated) Level (06/15/2023 2:29 PM EDT) UF Heparin 0.93 IU/mL [facility] Comment: Heparin [...] ORDERABLE S [facility] [place] [address] * EKG 12 Lead (06/15/2023 10:50 AM EDT) Ventricular rate 55 BPM MUSE SYSTEM Atrial Rate 55 BPM MUSE SYSTEM P-R Interval 184 ms MUSE SYSTEM QRS Duration 96 ms MUSE SYSTEM Q-T Interval 590 ms MUSE SYSTEM QTC Calculated (Bezet) 565 ms MUSE SYSTEM Calculated P [place] 54 degrees MUSE SYSTEM Calculated R [place] 54 degrees MUSE SYSTEM Calculated T [place] 13 degrees MUSE SYSTEM INTERPRETATION Sinus bradycardia with sinus arrhythmia Marked ST abnormality, possible inferior subendocardial injury Long QT interval Abnormal ECG When compared with ECG of 15-JUN-2023 02:17, Nonspecific T wave abnormality has replaced inverted T waves in Lateral leads Confirmed by Kai Haider ([id number]) on 06/16/2023 3:52:04 PM MUSE SYSTEM 06/15/2023 10:5 0 AM EDT 06/16/2023 3:52 PM EDT Terrence Keating MD ECG ORDERABLES Performing Organization Address [facility] Co de Phone Number MUSE SYSTEM * (ABNORMAL) Basic Metabolic Panel (non-fasting) (06/15/2023 8:18 AM EDT) Glucose 113 65 - 199 mg/dL [facility] Comment:Diabetes: >=200 mg/d L plus symptoms Blood Urea Nitrogen 29(H) 8 - 18 mg/dL [facility] Creatinine 1.22(H) 0.70 - 1.20 mg/dL [facility] Sodium 134(L) 135 - 145 mmol/L [facility] Potassium 2.5(Criti edy) 3.5 - 5.0 mmol/L [facility] Comment: Called by: nb, Read back by: eamon mckeno, Date/Time:06/15/23 09:34. Please note: ??Patients with WBC >100,000 may have falsely elevated Potassium levels. ??For accurate Potassium quantification in these patients send serum separator tube (gold top) for subsequent determinations. ??Contact the Clinical Chemistry Laboratory if there are any questions. Chloride 89(L) 98 - 107 mmol/L [facility] Carbon Dioxide 30 22 - 31 mmol/L [facility] Anion Gap 15 5 - 15 mmol/L [facility] Calcium 10.0 8.5 - 10.5 mg/dL [facility] Est Glomerular Filtration Rate 53(L) >=60 mL/min/1. 73 m?? [facility] [...] ORDERABL ES [facility] [place] [address] * Heparin (unfractionated) Level (06/15/2023 8:18 AM EDT) UF Heparin 0.70 IU/mL [facility] Comment: Heparin [...] ORDERABLE S [facility] [place] [address] * (ABNORMAL) Troponin (06/15/2023 8:18 AM EDT) Troponin-T, High Sensitivity 33(H) <=14 ng/L [facility] Comment: This patient's troponin T [...] [facility] Test Catalog Reference: Fourth [employer]eler Definition of Myocardial Infarction. Journal of the [employer] 2018;72:1157-0981 Blood 06/15/2023 8:18 AM EDT 06/15/2023 8:34 AM EDT Narrative Resulting Agency Comment Spec In Lab Terrence Keating MD CHEMISTRY ORDERABLES [facility] [place] [address] * Differential, Automated (06/15/2023 4:28 AM EDT) Neutrophil % 48.0 % [facility] Neutrophil Absolute 3.20 1.70 - 6.10 x10(3)/[facility] Lymph % 35.8 % [facility] Lymphocytes Abs 2.4 0.9 - 3.2 x10(3)/[facility] Monocyte % 11.4 % [facility] Monocyte Abs 0.8 0.3 - 0.9 x10(3)/[facility] Eos % 3.7 % [facility] Eosinophils Abs 0.2 0.0 - 0.4 x10(3)/[facility] Basophil % 1.0 % [facility] Baso Absolute 0.1 0.0 - 0.1 x10(3)/[facility] Immature Gran % 0.10 % [facility] Comment: Immature granulocytes(IG's)percentage and absolute count will include metamyelocytes, myelocytes, and promyelocytes. Blood smears from CBCs yielding IG's will be scanned manually for concordance. If this scan disagrees with the automated IG or if promyelocytes are noted, a manual differential will be performed. Immature Gran Absolute 0.01 0.00 - 0.04 x10(3)/[facility] Blood 06/15/2023 4:28 AM EDT 06/15/2023 4:37 AM EDT Narrative Resulting Agency Comment Spec In Lab Terrence Keating MD HEMATOLOGY ORDERABLE S [facility] [place] [address] * (ABNORMAL) Hemogram (06/15/2023 4:28 AM EDT) White Blood Cell 6.7 4.0 - 9.5 x10(3)/mc L [facility] Red Blood Cell 5.09 4.00 - 5.21 x10(6)/mc L [facility] Hemoglobin 16.1(H) 11.7 - 15.5 g/dL [facility] Hematocrit 48.2(H) 35.7 - 45.8 % [facility] Mean Cell Volume 94.7(H) 82.6 - 94.4 fL [facility] Mean Cell Hemoglobin 31.6 27.1 - 32.0 pg [facility] Mean Cell Hemoglobin Concentration 33.4 31.7 - 35.0 g/dL [facility] Platelet 253 145 - 357 x10(3)/mc L [facility] RDW Standard Deviation 45.5 37.0 - 46.0 fL [facility] RDW coefficient of variation 13.0 11.5 - 14.1 % [facility] Mean Platelet Volume 10.6 7.6 - 12.9 fL [facility] NRBC% auto 0.0 % [facility] NRBC Absolute 0.000 0.000 - 0.000 x10(3)/mc L [facility] Blood 06/15/2023 4:28 AM EDT 06/15/2023 4:37 AM EDT Narrative Resulting Agency Comment Spec In Lab Terrence Keating MD HEMATOLOGY ORDERABLE S [facility] [place] [address] * (ABNORMAL) Troponin (06/15/2023 4:28 AM EDT) Troponin-T, High Sensitivity 34(H) <=14 ng/L [facility] Comment: This patient's troponin T [...] [facility] Test Catalog Reference: Fourth [employer]eler Definition of Myocardial Infarction. Journal of the [employer] 2018;72:[id number] Blood 06/15/2023 4:28 AM EDT 06/15/2023 4:37 AM EDT Narrative Resulting Agency Comment Spec In Lab Terrence Keating MD CHEMISTRY ORDERABLES [facility] [place] [address] * (ABNORMAL) Prothrombin Time (06/15/2023 4:28 AM EDT) Prothrombin Time 12.7(H) 9.4 - 12.5 sec [facility] International Normalization Ratio 1.1 [facility] Comment: An INR <2.0 indicates [...] Performing Organization Address [facility] Co de Phone Number [facility] [address] * (ABNORMAL) Hepatic Function Panel (06/15/2023 4:28 AM EDT) Pathologist [facility] Protein, Total 7.5 6.1 - 8.0 g/dL [facility] Albumin 4.3 3.2 - 5.2 g/dL [facility] Aspartate Aminotransferase 32(H) 0 - 30 unit/L [facility] Alanine Aminotransferase 26 0 - 30 unit/L [facility] Alkaline Phosphatase 70 35 - 105 unit/L [facility] Bilirubin, Total 0.8 0.2 - 1.3 mg/dL [facility] Bilirubin, Direct 0.1 0.0 - 0.3 mg/dL [facility] Blood 06/15/2023 4:28 AM EDT 06/15/2023 4:37 AM EDT Narrative Resulting Agency Comment Spec In Lab Terrence Keating MD CHEMISTRY ORDERABLES Performing Organization Address [facility] Co de Phone Number [facility] [address] * (ABNORMAL) pro-Brain Natriuretic Peptide (06/15/2023 4:28 AM EDT) [facility] NT-proBNP 1,953(H) <=124 pg/mL [facility] Blood 06/15/2023 4:28 AM EDT 06/15/2023 4:37 AM EDT Narrative Resulting Agency Comment Spec In Lab Terrence Keating MD CHEMISTRY ORDERABLES Performing Organization Address [facility] de Phone Number [facility] [place] [address] * TSH (06/15/2023 4:28 AM EDT) Thyroid Stimulating Hormone 2.98 0.27 - 4.20 mcIU/mL [facility] Comment: Reference Interval (mcIU/mL): Females: ??First Trimester: 0.23-3.88 ??Second Trimester: 0.22-3.90 ??Third Trimester: 0.44-4.66 Blood 06/15/2023 4:28 AM EDT 06/15/2023 4:37 AM EDT Narrative Resulting Agency Comment Spec In Lab Terrence Keating MD CHEMISTRY ORDERABLES Performing Organization Address [facility] de Phone Number [facility] [place] [address] * Phosphorus (06/15/2023 4:28 AM EDT) Phosphorus 4.4 2.5 - 4.5 mg/dL [facility] Blood 06/15/2023 4:28 AM EDT 06/15/2023 4:37 AM EDT Narrative Resulting Agency Comment Spec In Lab Terrence Keating MD CHEMISTRY ORDERABLES Performing Organization Address [facility] Co de Phone Number [facility] [place] [address] * (ABNORMAL) Magnesium (06/15/2023 4:28 AM EDT) Magnesium 1.22(H) 0.69 - 1.07 mmol/L [facility] Blood 06/15/2023 4:28 AM EDT 06/15/2023 4:37 AM EDT Narrative Resulting Agency Comment Spec In Lab Terrence Keating MD CHEMISTRY ORDERABLES [facility] [address] * Calcium (06/15/2023 4:28 AM EDT) Calcium 9.7 8.5 - 10.5 mg/dL [facility] Blood 06/15/2023 4:28 AM EDT 06/15/2023 4:37 AM EDT Narrative Resulting Agency Comment Spec In Lab Terrence Keating MD CHEMISTRY ORDERABLES Performing Organization Address [facility] Co de Phone Number [facility] [place] [address] * (ABNORMAL) Basic Metabolic Panel (non-fasting) (06/15/2023 4:28 AM EDT) Pathologist [facility] Glucose 112 65 - 199 mg/dL [facility] Comment:Diabetes: >=200 mg/d L plus symptoms Blood Urea Nitrogen 30(H) 8 - 18 mg/dL [facility] 107 mmol/L [facility] Carbon Dioxide 28 22 - 31 mmol/L [facility] Anion Gap 16(H) 5 - 15 mmol/L [facility] Calcium 9.7 8.5 - 10.5 mg/dL [facility] Est Glomerular Filtration Rate 52(L) >=60 mL/min/1. 73 m?? [facility] [...] CHEMISTRY ORDERABLES [facility] [address] * EKG 12 Lead (06/15/2023 2:17 AM EDT) Ventricular rate 57 BPM MUSE SYSTEM Atrial Rate 57 BPM MUSE SYSTEM P-R Interval 200 ms MUSE SYSTEM QRS Duration 94 ms MUSE SYSTEM Q-T Interval 606 ms MUSE SYSTEM QTC Calculated (Bezet) 591 ms MUSE SYSTEM Calculated P [place] 66 degrees MUSE SYSTEM Calculated R [place] 74 degrees MUSE SYSTEM Calculated T [place] -33 degrees MUSE SYSTEM INTERPRETATION Sinus bradycardia Possible Lateral infarct (cited on or before 17-APR-2023) Marked ST abnormality, possible inferior subendocardial injury Prolonged QTc Abnormal ECG When compared with ECG of 20-APR-2023 10:23, Nonspecific T wave changes QT has lengthened Confirmed by fellow MD Hansa, Sindhu ([id number]) on 06/15/2023 4:36:19 PM Confirmed by MD Angelo Danette ([id number]) on 06/15/2023 4:51:21 PM MUSE SYSTEM 06/15/2023 2:17 AM EDT 06/15/2023 4:51 PM EDT Terrence Keating MD ECG ORDERABLES [facility] SYSTEM documented in this encounter Visit Diagnoses [...] 0853 (Given - Provider: Heidy Paris RN)1332 ([facility] Hold - Provider: Admin Adt - Reason: Transfer to a Procedural area)1548 ([facility] Unhold - Provider: Admin Adt) 0856 (Given - Provider: Heidy Paris RN) 0931 (Given - Provider: Heidy Paris RN) gabapentin (Neurontin) capsule 600 mg 600 mg, Oral, NIGHTLY, First dose on Wed06/15/23 at 0200, Until Discontinued, Routine 1332 ([facility] Hold - Provider: Admin Adt - Reason: Transfer to a Procedural area)1548 ([facility] Unhold - Provider: Admin Adt)2137 (Given - Provider: Lorena Torres RN) 2116 (Given - Provider: Machelle Busch RN) lidocaine (Lidoderm) 5% patch 1 patch 1 patch, Transdermal, Administer over 12 Hours, EVERY 24 HOURS, First dose (after last modification) on Wed07/04/23 at 1000, Until Discontinued, Apply patch(es) for 12 hours, and then remove for 12 hours.for right lower back, Routine 1000 (Not Given - Provider: Heidy Paris RN - Reason: Patient/family refused)1332 ([facility] Hold - Provider: Admin Adt - Reason: Transfer to a Procedural area)1548 ([facility] Unhold - Provider: Admin Adt) 1000 (Not [...] Heidy Paris RN - Reason: Patient/family refused)1332 ([facility] Hold - Provider: Admin Adt - Reason: Transfer to a Procedural area)1548 ([facility] Unhold - Provider: Admin Adt) 0900 (Not [...] 0853 (Given - Provider: Heidy Paris RN)1332 ([facility] Hold - Provider: Admin Adt - Reason: Transfer to a Procedural area)1548 ([facility] Unhold - Provider: Admin Adt)213 (Given - Provider: Lorena Torres RN) 0856 (Given - Provider: Heidy Paris, ERWIN)2117 (Given - Provider: Machelle Busch, ERWIN) 0938 (Given - Provider: Heidy Paris, ERWIN) rimegepant (Nurtec ODT) Tablet, Rapid Dissolve 75 mg 75 mg, Oral, EVERY 48 HOURS, First dose (after last modification) on Wed06/23/23 at 1000, Until Discontinued 1000 (Not Given - Provider: Heidy Paris RN - Reason: Patient/family refused)1332 ([facility] Hold - Provider: Admin Adt - Reason: Transfer to a Procedural area)1548 ([facility] Unhold - Provider: Admin Adt) 1000 (Not Given - Provider: Heidy Paris RN - Reason: Patient/family refused) rOPINIRole (Requip) tablet 2 mg 2 mg, Oral, 2 TIMES DAILY, First dose on Wed06/15/23 at 0245, Until Discontinued, Routine 0853 (Given - Provider: Heidy Paris RN)1332 ([facility] Hold - Provider: Admin Adt - Reason: Transfer to a Procedural area)1548 ([facility] Unhold - Provider: Admin Adt)2137 (Given - Provider: Lorena Torres, ERWIN) 0856 (Given - Provider: Heidy Paris RN)211 (Given - Provider: Machelle Busch RN) 0931 (Given - Provider: Heidy Paris RN) senna-docusate (Pericolace) 8.6-50 mg per tablet 2 tablet 2 tablet, Oral, 2 TIMES DAILY, First dose on Wed06/17/23 at 1100, Until Discontinued, Routine 0900 (Not Given - Provider: Heidy Paris RN - Reason: Patient/family refused)1332 ([facility] Hold - Provider: Admin Adt - Reason: Transfer to a Procedural area)1548 ([facility] Unhold - Provider: Admin Adt)2100 (Not Given [...] 0859 (Given - Provider: Heidy Paris RN)1332 ([facility] Hold - Provider: Admin Adt - Reason: Transfer to a Procedural area)1548 ([facility] Unhold - Provider: Admin Adt)2100 (Not Given - Provider: Lorena Torres, ERWIN - Reason: Contraindicated) 0859 (Given - Provider: Heidy Paris RN)2116 (Given - Provider: Machelle Busch, ERWIN) 0937 (Given - Provider: Heidy Paris, ERWIN) spironolactone (Aldactone) tablet 25 mg 25 mg, Oral, DAILY, First dose on Wed06/15/23 at 0900, Until Discontinued, DO NOT SPLIT, CRUSH OR OPEN, Routine 0853 (Given - Provider: Heidy Paris RN)1332 (MAY Hold - Provider: Admin Adt - Reason: Transfer to a Procedural area)1548 ([facility] Unhold - Provider: Admin Adt) 0856 (Given - Provider: Heidy Paris, ERWIN) 0931 (Given - Provider: Heidy Paris RN) topiramate (Topamax) tablet 100 mg 100 mg, Oral, NIGHTLY, First dose on Wed06/15/23 at 2100, Until Discontinued, Routine 1332 ([facility] Hold - Provider: Admin Adt - Reason: Transfer to a Procedural area)1548 ([facility] Unhold - Provider: Admin Adt)213 (Given - Provider: Lorena Torres RN) 2116 [...] Provider: Heidy Paris RN - Comment: per order to restart after procedure) 0103 (Rate/Dose [...] Until Wed07/07/23 at 1548, Endoscopy (Intra-Procedure) 1410 ([facility] - Provider: Gisel Boyer RN) PRN [...] ordered pain medications are indicated., Routine 1332 ([facility] Hold - Provider: Admin Adt - Reason: Transfer to a Procedural area)1548 ([facility] Unhold - Provider: Admin Adt) albuteroL (Proventil, Ventolin) (2.5 mg/3 mL) (0.083 %) nebulizer solution 2.5 mg 2.5 mg, Nebulization, EVERY 4 HOURS PRN, Starting on Wed07/04/23 at 0857, Until Wed07/09/23 at 1844, Wheezing, Routine 1332 ([facility] Hold - Provider: Admin Adt - Reason: Transfer to a Procedural area)1548 ([facility] Unhold - Provider: Admin Adt) lidocaine (Xylocaine) 1% (10 mg/mL) injection 3 mg 3 mg (0.3 mL), Subcutaneous, ONCE PRN, 1 dose, Starting on Wed06/15/23 at 0146, Until Wed07/09/23 at 1844, for discomfort with PIV insertion, Routine 1332 ([facility] Hold - Provider: Admin Adt - Reason: Transfer to a Procedural area)1548 ([facility] Unhold - Provider: Admin Adt) loratadine (Claritin) tablet 10 mg 10 mg, Oral, DAILY PRN, Starting on Wed06/15/23 at 0146, Until Wed07/09/23 at 1844, allergies, Routine 1332 ([facility] Hold - Provider: Admin Adt - Reason: Transfer to a Procedural area)1548 ([facility] Unhold - Provider: Admin Adt) nitroGLYcerin (Nitrostat) disintegrating tablet 0.4 mg 0.4 mg, Sublingual, EVERY 5 MIN PRN, Starting on Wed06/22/23 at 1119, Until Wed07/09/23 at 1844, Chest pain, SL nitroglycerin may be repeated every 5 minutes as needed up to 3 doses, Routine 1332 ([facility] Hold - Provider: Admin Adt - Reason: Transfer to a Procedural area)1548 ([facility] Unhold - Provider: Admin Adt) 0951 (Given - Provider: Heidy Paris, ERWIN) ondansetron (pf) (Zofran) (2 mg/mL) injection 4 mg 4 mg, Intravenous, EVERY 8 HOURS PRN, Starting on Wed06/29/23 at 1449, Until Wed07/09/23 at 1844, Nausea 1332 ([facility] Hold - Provider: Admin Adt - Reason: Transfer to a Procedural area)1548 ([facility] Unhold - Provider: Admin Adt)2137 (Given - Provider: Lorena Torres RN) 1008 (Given - Provider: Heidy Paris RN) 1140 (Given - Provider: Heidy Paris RN) oxyCODONE-acetaminophen (Percocet) 5-325 mg per tablet 1 tablet 1 tablet, Oral, EVERY 6 HOURS PRN, Starting on Wed07/06/23 at 1020, Until Wed07/09/23 at 1844, Pain, for pain refractory to PRN acetaminophen, Maximum dose of acetaminophen is 4000 mg from all sources in 24 hours., Routine 1332 ([facility] Hold - Provider: Admin Adt - Reason: Transfer to a Procedural area)1548 ([facility] Unhold - Provider: Admin Adt)2137 (Given - Provider: Lorena Torres RN) 0855 (Given - Provider: Heidy Paris, ERWIN)2120 (Given - Provider: Machelle Busch RN) simethicone (Gas-X Chew) 80 mg chewable tablet 80 mg 80 mg, Oral, EVERY 6 HOURS PRN, Starting on Wed06/20/23 at 0941, Until Wed07/09/23 at 1844, Cramping, Routine 1332 ([facility] Hold - Provider: Admin Adt - Reason: Transfer to a Procedural area)1548 ([facility] Unhold - Provider: Admin Adt) 1344 (Given [...] Routine documented in this encounter Care Teams [employer] Relationship Specialty Start Date End Date Polo Pearce PA [address] [place] [address] PCP - General Internal Medicine 06/09/21 documented as of this encounter
--- OUTSIDE RECORDS SUMMARY | 2023-10-20 19:55 | XMS_ITS | Encounter Summary ---
[place] [address] Care Team Providers Care Time Study Technologist Name Role Phone Polo Pearce Primary Care Provider [phone] Reason for Referral * Diagnostic Test (Routine) - Closed Specialty Diagnoses / Procedures Referred By Jayant harris Referred To Contact Diagnoses Mesenteric ischemia Procedures Duplex Study Visceral Arteries, Comp Mamie Marx APRN [facility] [place] [address] [facility] [address] [place] [phone] Referral ID Status Reason Start Date Expiration Date V isits Requested Visits Authorized [id number] Closed Specialty Service Requested 06/28/2023 06/27/2024 1 1 Encounter Details Date Type Department Care Team (Late st Contact Info) Description 06/28/2023 Orders Only Vascular Surgery at [address] [phone] Mamie Marx APRN [facility] [place] [address] Mesenteric ischemia Social History Tobacco Use Types Packs/Day Years Used Date Smoking Tobacco: Never Smokeless Tobacco: Never Alcohol Use Standard Drinks/Week Comments Never 0 (1 standard drink = 0.6 oz pur e alcohol) [facility] Utilities Answer Date Recorded [...] AM EDT Hospital [place] [address] [place] [address] 10/21/2023 11:30 AM EDT [place] [address] Mary Reyes [place] [address] 10/21/2023 12:30 PM EDT Appoint[place] [address] Mary Reyes [place] [address] 10/21/2023 1:30 PM EDT Appoint[place] [address] Mary Reyes [place] [address] 10/21/2023 2:30 PM EDT Appointment [place] [address] Mary Reyes [place] [address] 10/26/2023 4:00 PM EDT Office Visit Cardiology at [address] [phone] Jaspreet Kinsey MD [facility] [place] [address] 10/28/2023 9:00 AM EDT Office Visit [place] [address] 10/29/2023 10:00 AM EDT Clinical Support [place] [address] 10/29/2023 10:15 AM EDT Procedure visit Gastroenterology at [place], [place] [id number] 11/01/2023 5:00 PM EDT Office Visit Gastroenterology at [place] [phone] Selene Browning, PhD [facility] [place] [address] 11/22/2023 4:40 PM EDT Office Visit Cardiology at [address] [phone] Porsha Mcdaniels MD [facility] [place] [address] 12/13/2023 10:00 AM EDT Clinical [place] [address] [facility] [place] [address] documented as of this encounter Results * Duplex Study Visceral Arteries, Comp (08/03/2023 8:36 AM EDT) VB Text Report Department: Vascular Surgery Lab Patient: [id number] (LOIDA ROQUE) CPT: 19267 Referring Physician: MAMIE MARX ?? Phone: Indications: S/p SMA stenting (07/01) one month f/u, ? patency Findings: Unilateral ? Waveform ? PSV cm/s ??EDV cm/s ??Patent ?? Dary Visceral Aorta ? 71 ?14 ? Celiac Artery, Proximal ??Hampton-Biphasic ? 100 ?22 ? Celiac Artery, Mid ? Hampton-Biphasic ?99 ?19 ? Celiac Artery, Distal ?Hampton-Biphasic ?94 ?18 ? Sup Mes Artery Proximal [...] within mesenteric artery stents may differ from kalispel arteries, with thresholds for diagnosis of significant stenosis likely being somewhat higher in stented arteries than kalispel.% To date, there is no evidence based consensus of stent velocity criteria. Therefore, the current interpretation is based on kalispel artery thresholds. Previous Celiac/Mesenteric Studies: Date ? [...] intestine documented in this encounter Care Teams Time Study Technologist Relationship Specialty Start Date End Date Polo Pearce PA [address] [place] [address] PCP - General Internal Medicine 06/09/21 documented as of this encounter
--- OUTSIDE RECORDS SUMMARY | 2023-10-20 19:55 | XMS_ITS | Encounter Summary ---
Author Organization [facility] Address [facility] [place] [address] Care Team Providers Care Joy Operator Helper Name Role Phone Polo Pearce Primary Care Provider [phone] Encounter Details Date Type Department Care Team [...] AM EDT Hospital En[place] [address] Mary Reyes GUIDANCE CONSULTANT [facility] [place] [address] 10/21/2023 11:30 AM EDT Appointment [place] [phone] Mary Re[place] [address] 10/21/2023 12:30 PM EDT Appointment [place] [address] Mary Reyes GUIDANCE CONSULTANT [facility] [place] [address] 10/21/2023 1:30 PM EDT Appointment [place] [phone] Mary Reyes GUIDANCE CONSULTANT [facility] [place] [address] 10/21/2023 2:30 PM EDT Appointment [place] [phone] Mary Reyes GUIDANCE CONSULTANT [facility] [place] [address] 10/26/2023 4:00 PM EDT Office Visit Cardiology at [address] [phone] Jaspreet Kinsey MD [facility] [place] [address] 10/28/2023 9:00 AM EDT Office [place] [address] 10/29/2023 10:00 AM EDT Clinical [place] [address] 10/29/2023 10:15 AM EDT Procedure [place] [address] 11/01/2023 5:00 PM EDT Office [place] [phone] Selene Browning, PhD [facility] [place] [address] 11/22/2023 4:40 PM EDT Office Visit Cardiology at [address] [phone] Porsha Mcdaniels MD [facility] [place] [address] 12/13/2023 10:00 AM EDT Clinical [place] [address] Lucero Romero, ALVA [facility] [place] [address] documented as of this encounter Visit Diagnoses Not on filedocumented in this encounter Care Teams Joy Operator Helper Relationship Specialty Start Date End Date Polo Pearce PA [facility] [address] [place] [address] PCP - General Internal Medicine 06/09/21 documented as of this encounter
--- OUTSIDE RECORDS SUMMARY | 2023-10-20 19:55 | XMS_ITS | Encounter Summary ---
Author Organization [facility] Address [facility] [place] [address] Care Team Providers Care Disease Case Manager Name Role Phone Polo Pearce Primary Care Provider [phone] Encounter Details Date Type Department Care Team (Late st Contact Info) Description 06/14/2023 Telephone Cardiology at [address] [phone] Sarah Kahn, AUTOMOTIVE SERVICES MANAGER [facility] CARDIOLOGY [address] Social History Tobacco Use Types Packs/Day Years Used Date Smoking Tobacco: Never Smokeless Tobacco: Never Alcohol Use Standard Drinks/Week Comments Never 0 (1 standard drink = 0.6 oz pur e alcohol) [facility] Utilities Answer Date Recorded In the past 12 months has [employer], gas, oil, or water [employer] threatened to shut off services in your [...] AM Referring Provider: Dr. Iyer Patient Location: [facility] Past Medical History: Mild, nonobstructive CAD, s/p [facility] 04/2023 for similar presentation SVT s/p [...] showed no evidence of inflammation/sarcoid. Troponin at [facility] at the time of her event in [...] or examined this patient. Sarah Kahn, MICHELL, PROFESSOR COMPUTER SCIENCE-BC, AUTOMOTIVE SERVICES MANAGER [facility] [place] documented in this encounter Plan of Treatment Upcoming Encounters Date Type Department Care Team (Late st Contact Info) Description 10/21/2023 10:30 AM EDT Hospital Encounter [place] [address] Mary Reyes APRN [facility] [place] [address] 10/21/2023 11:30 AM EDT Appointment Nuclear Medicine at [place] [phone] Mary Reyes [facility] [place] [address] 10/21/2023 12:30 PM EDT Appointment [place] [phone] [place] [address] 10/21/2023 1:30 PM EDT Appointment [place] [address] [place] [address] 10/21/2023 2:30 PM EDT Appointment [place] [address] Mary Reyes [facility] [place] [address] 10/26/2023 4:00 PM EDT Office Visit Cardiology at [address] [phone] Jaspreet Kinsey MD [facility] CARDIOLOGY [address] 10/28/2023 9:00 AM EDT Office [place] [address] 10/29/2023 10:00 AM EDT Clinical [place] [address] 10/29/2023 10:15 AM EDT Procedure [place] [address] 11/01/2023 5:00 PM EDT Office [place] [address] Selene Browning, PhD [facility] DR PSYCHIATRY DEPT [address] 11/22/2023 4:40 PM EDT Office Visit Cardiology at [address] [address] Porsha Mcdaniels MD [facility] CARDIOLOGY [address] 12/13/2023 10:00 AM EDT Clinical [place] [address] Lucero Romero, ALVA [facility] DR NUTRITION SERVICES [address] documented as of this encounter Visit Diagnoses Not on filedocumented in this encounter Care Teams Disease Case Manager Relationship Specialty Start Date End Date Polo Pearce PA [address] [place] [address] PCP - General Internal Medicine 06/09/21 documented as of this encounter
--- OUTSIDE RECORDS SUMMARY | 2023-10-20 19:55 | XMS_ITS | Encounter Summary ---
[place] [address] Care Team Providers Care Machine Package Sealer Name Role Phone Polo Pearce Primary Care Provider [phone] Reason for Visit * Auth/Cert (Routine) Specialty Diagnoses / Procedures Referred By Jayant harris Referred To Contact Diagnoses NSTEMI (non-ST elevated myocardial infarction) NSTEMI Procedures ER Lloyd Pantoja MD [facility] [place] [address] [facility] Referral ID Status Reason Start Date Expiration Date Visits Re quested Visits Authorized [id number] 1 1 Encounter Details Date Type Department Care Team (Latest Contact Info) Description 07/02/2023 10:10 AM EDT - 07/02/2023 11:59 PM EDT Hospital En[place] [address] Discharge Disposition: Home Social History Tobacco Use Types Packs/Day Years Used Date Smoking Tobacco: Never Smokeless Tobacco: Never Alcohol Use Standard Drinks/Week Comments Never 0 (1 standard drink = 0.6 oz pur e alcohol) [facility] Utilities Answer Date Recorded In the past 12 months has [employer] electric, gas, oil, or water company threatened [...] as needed. fluticasone propionate (FLONASE) 50 mcg/actuation [place], Suspension 1 spray by Each Nare route [...] ordered. Henrietta Judge MD Vascular Surgery Pager: [phone] 07/02/23 ASA: 3 Mal: 3 Cr: Lab Results Component Value Date CREATININE 1.21 (H) 07/02/2023 * Deborah Eyl RN - 07/02/2023 10:56 AM EDT [facility] NUR[facility] DATABASE Name: Indira Roque Date of : 1970 AGE: 53 y.o. Address: [address] [place] [phone] (home) [phone] (work) Mobile: Telephone Information: Referring Provider: Pat [...] groin Right Groin Closure device used: Pro [place] Time sheath removed: 13:12 Time of hemostasis: [...] of : 1970 AGE: 53 y.o. [address] [address] (home) [phone] (work) Mobile: Telephone Information: Referring Provider: Pat [...] AM EDT Hospital Encounter [place] [address] Mary Reyes, ROM [facility] [place] [address] 10/21/2023 11:30 AM EDT Appointment Nuclear Medicine at [place] [phone] Mary Reyes [facility] [place] [address] 10/21/2023 12:30 PM EDT Appointment [place] [phone] [place] [address] 10/21/2023 1:30 PM EDT Appointment [place] [address] [place] [address] 10/21/2023 2:30 PM EDT Appointment [place] [address] Mary Reyes [facility] [place] [address] 10/26/2023 4:00 PM EDT Office Visit Cardiology at [address] [address] Jaspreet Kinsey MD [facility] [place] [address] 10/28/2023 9:00 AM EDT Office Visit [place] [address] 10/29/2023 10:00 AM EDT Clinical Support [place] [address] 10/29/2023 10:15 AM EDT Procedure [place] [address] 11/01/2023 5:00 PM EDT Office Visit [place] [address] Selene Browning, PhD [facility] [place] [address] 11/22/2023 4:40 PM EDT Office Visit Cardiology at [address] [phone] Porsha Mcdaniels MD [facility] [place] [address] 12/13/2023 10:00 AM EDT Clinical Support [place] [address] Lucero Romero, ALVA [facility] [place] [address] documented as of this encounter Procedures Procedure [...] mg documented in this encounter Care Teams Machine Package Sealer Relationship Specialty Start Date End Date Polo Pearce PA [address] [place] [address] PCP - General Internal Medicine 06/09/21 documented as of this encounter
--- OUTSIDE RECORDS SUMMARY | 2023-10-20 19:56 | XMS_ITS | Encounter Summary ---
Author Organization [facility] Address [facility] [place] [address] Care Team Providers Care Director Writing Name Role Phone Polo Pearce Primary Care Provider [phone] Reason for Visit * Reason Comments Cardiomyopathy Encounter Details Date Type Department Care Team (Late st Contact Info) Description 05/10/2023 2:40 PM EST Office Visit Cardiology at [address] [place] [address] Jaspreet Kinsey MD [facility] [place] [address] Heart failure with preserved ejection fraction, unspecified HF chronicity (Primary Dx); SVT (supraventricular tachycardia) Social History Tobacco Use Types Packs/Day Years Used Date Smoking Tobacco: Never Smokeless Tobacco: Never Alcohol Use Standard Drinks/Week Comments Never 0 (1 standard drink = 0.6 oz pur e alcohol) [facility] Utilities Answer Date Recorded In the past 12 months has Plated electric, gas, oil, or water company threatened [...] Oral, DAILY fluticasone propionate (FLONASE) 50 mcg/actuation [place], Suspension 1 spray, Each Nare, PRN gabapentin [...] preserved ejection fraction 05/2021: subacute, presented to [facility] with RUQ pain, weight gain, and [...] consider referral to the clare Mcdaniels of [facility] expertise IN the meantime, increase torsemide to [...] AM EDT Hospital Encounter [place] [phone] [place] [address] 10/21/2023 11:30 AM EDT Appointment [place] [phone] Mary Reyes [facility] [address] 10/21/2023 12:30 PM EDT Appointment [place] [phone] Mary Reyes [facility] [address] 10/21/2023 1:30 PM EDT Appointment [place] [phone] Mary Reyes [facility] [address] 10/21/2023 2:30 PM EDT Appointment [place] [phone] Mary Reyes [facility] [place] [address] 10/26/2023 4:00 PM EDT Office Visit Cardiology at [address] [address] Jaspreet Kinsey MD [facility] [place] [address] 10/28/2023 9:00 AM EDT Office [place] [address] 10/29/2023 10:00 AM EDT Clinical [place] [address] 10/29/2023 10:15 AM EDT Procedure [place] [address] 11/01/2023 5:00 PM EDT Office Visit G[place] [phone] Selene Browning, PhD [facility] [place] [address] 11/22/2023 4:40 PM EDT Office Visit Cardiology at [address] [phone] Porsha Mcdaniels MD [facility] [place] [address] 12/13/2023 10:00 AM EDT Clinical Support [place] [phone] [facility] [place] [address] documented as of this encounter Results * Streptococcal Antibody Panel (08/25/2023 11:28 AM EDT) Pathologist [facility] Aso Titer (JULY) 25 0 - 530 IU/mL [facility] Comment: Test Performed by: [address] [address] Arts Administrator: Nellie Hanye Ph.D.; CLIA# [id number] Dnase B Ab (JULY) 146 0 - 300 unit/mL [facility] Comment: Test Performed by: [facility] - [address] [address] Arts Administrator: Nellie Haney Ph.D.; CLIA# [id number] Blood 08/25/2023 11:2 8 AM EDT 08/25/2023 1:02 PM EDT Narrative Resulting Agency Comment Spec In Lab Jaspreet Kinsey MD LAB SEND OUT ORDERAB LES Performing Organization Address [facility] Co de Phone Number [facility] [place] [place] [address] * Lyme IgG & IgM Antibody (08/25/2023 11:28 AM EDT) [facility] Lyme Antibody Negative Negative [facility] Lyme Ab Comment Negative result does not exclude possibility of infection. [facility] Comment: Please note that as of 07/14/2022 that this testing is performed by the Special Chemistry Laboratory at [facility]. This change in testing location is associated with a change in testing methodology. Blood 08/25/2023 11:2 8 AM EDT 08/26/2023 7:26 AM EDT Narrative Resulting Agency Comment Spec In Lab Jaspreet Kinesy MD IMMUNOLOGY ORDERABLE S Performing Organization Address City/[facility]/ZIP Co de Phone Number [facility] [place] [address] * Ferritin (08/25/2023 11:28 AM EDT) [facility] Ferritin 110 11 - 328 ng/mL [facility] Comment: Please note that as of 02/10/2023, the reference intervals for Ferritin have been updated. Blood 08/25/2023 11:2 8 AM EDT 08/25/2023 11:37 AM EDT Narrative Resulting Agency Comment Spec In Lab Jaspreet Kinsey MD CHEMISTRY ORDERABLES Performing Organization Address [facility]/ZIP Co de Phone Number [facility] [place] [place] [address] * Iron and TIBC (08/25/2023 11:28 AM EDT) Iron 113 30 - 150 mcg/dL [facility] TIBC 338 250 - 450 mcg/dL [facility] Iron Saturation 33 20 - 50 % [facility] Blood 08/25/2023 11:2 8 AM EDT 08/25/2023 11:36 AM EDT Narrative Resulting Agency Comment Spec In Lab Jaspreet Kinsey MD CHEMISTRY ORDERABLES Performing Organization Address [facility] Co de Phone Number [facility] [place] [place] [address] * (ABNORMAL) Free Light Chains, Serum (08/25/2023 11:28 AM EDT) [place] Free Light Chain 3.09(H) 0.72 - 2.75 mg/dL [facility] Lambda Free Light Chain 1.65 0.57 - 2.15 mg/dL [facility] [place]/Lambda FLC Ratio 1.8727 0.4000 - 2.5800 [facility] Blood 08/25/2023 11:2 8 AM EDT 08/25/2023 11:36 AM EDT Narrative Resulting Agency Comment Spec In Lab Jaspreet Kinsey MD CHEMISTRY ORDERABLES Performing Organization Address City/[facility] Co de Phone Number [facility] [place] [address] * (ABNORMAL) Protein Electrophoresis, serum (08/25/2023 11:28 AM EDT) Total Prot Electrophoresis 7.5 6.1 - 8.0 g/dL [facility] Albumin Electrophoresis 4.62 3.20 - 5.20 g/dL [facility] Alpha 1 Globulin 0.20 0.10 - 0.30 g/dL [facility] Alpha 2 Globulin 0.92(H) 0.40 - 0.90 g/dL [facility] [...] In Lab Jaspreet Kinsey MD CHEMISTRY ORDERABLES [facility] [place] [id number] * KATHRINE Antibody Screen (08/25/2023 11:28 AM EDT) Pathologist [facility] KATHRINE Ab Screen Negative Negative [facility] Comment: This antinuclear antibody (KATHRINE) screen is a qualitative test performed using a fluoroenzyme immunoassay on the [employer] 250 analyzer. This screen is designed to [...] performed by the Special Chemistry Laboratory at [facility]. This change in testing location is associated with a change is testing method and reference intervals. Please review the results of this test in association with the posted reference intervals. Blood 08/25/2023 11:2 8 AM EDT 08/26/2023 7:26 AM EDT Narrative Resulting Agency Comment Spec In Lab Jaspreet Kinsey MD LAB SEND OUT ORDERAB LES [facility] [place] [place] [address] documented in this encounter Visit Diagnoses Diagnosis Heart failure with preserved ejection fraction, unspecified HF chronicity- Primary SVT (supraventricular tachycardia) Other specified cardiac dysrhythmias documented in this encounter Care Teams Director Writing Relationship Specialty Start Date End Date Polo Pearce PA [address] [place] [address] PCP - General Internal Medicine 06/09/21 documented as of this encounter
--- OUTSIDE RECORDS SUMMARY | 2023-10-20 19:56 | XMS_ITS | Encounter Summary ---
[place] [address] Care Team Providers Care Surface To Air Weapons Officer Name Role Phone Polo Pearce Primary Care Provider [phone] Reason for Visit * Diagnostic Test (Routine) - Closed Specialty Diagnoses / Procedures Referred By Jayant harris Referred To Contact Radiology Diagnoses Chest pain, unspecified type Procedures NM PET CT Cardiac Sarcoid Maegan Mike [facility] [place] [address] [place] [address] Referral ID Status Reason Start Date Expiration Date V isits Requested Visits Authorized [id number] Closed Specialty Service Requested 04/22/2023 10/20/2024 4 4 Encounter Details Date Type Department Care Team (Latest Contact Info) Description 04/30/2023 11:05 AM EST Hospital Encounter [place] [address] Maegan Mike [facility] [place] [address] Discharge Disposition: Home Social History [...] nightly as needed. empagliflozin (Jardiance) 10 mg TabletIndications:Cue Selector neal heart failure with preserved ejection fraction Take 1 tablet by mouth daily. 90 tablet 1 06/11/2021 rOPINIRole (Requip) 1 mg Tablet Take 2 mg by mouth 2 times daily. 07/16/2020 loratadine (Claritin) 10 mg Tablet Take 10 mg by mouth daily as needed. fluticasone propionate (FLONASE) 50 mcg/actuation [place], Suspension 1 spray by Each Nare route [...] AM EDT Hospital Encounter [place] [address] Mary Reyes [facility] [place] [address] 10/21/2023 11:30 AM EDT Appointment [place] [address] Mary Reyes [place] [address] 10/21/2023 12:30 PM EDT Appointment [place] [phone] Mary Reyes [place] [address] 10/21/2023 1:30 PM EDT Appointment [place] [address] Mary Reyes [place] [address] 10/21/2023 2:30 PM EDT Appointment [place] [address] [place] [address] 10/26/2023 4:00 PM EDT Office Visit Cardiology at [address] [phone] Jaspreet Kinsey MD [facility] [place] [address] 10/28/2023 9:00 AM EDT Office Visit [place] [address] 10/29/2023 10:00 AM EDT Clinical Support [place] [address] 10/29/2023 10:15 AM EDT Procedure visit [place] [address] 11/01/2023 5:00 PM EDT Office Visit [place] [address] Selene Browning, PhD [facility] [place] [address] 11/22/2023 4:40 PM EDT Office Visit Cardiology at [address] [phone] Porsha Mcdaniels MD [facility] [place] [address] 12/13/2023 10:00 AM EDT Clinical Support [place] [address] Lucero Romero, ALVA [facility] [place] [address] documented as of this encounter Procedures Procedure [...] mCi documented in this encounter Care Teams Surface To Air Weapons Officer Relationship Specialty Start Date End Date Polo Pearce PA [address] [place] [address] PCP - General Internal Medicine 06/09/21 documented as of this encounter
--- OUTSIDE RECORDS SUMMARY | 2023-10-20 19:56 | XMS_ITS | Encounter Summary ---
[place] [address] Care Team Providers Care Manager Corporate Marketing Name Role Phone Polo Pearce Primary Care Provider [phone] Reason for Visit * Diagnostic Test (Routine) - Closed Specialty Diagnoses / Procedures Referred By Jayant harris Referred To Contact Radiology Diagnoses Chest pain, unspecified type Procedures NM PET CT Cardiac Sarcoid Magean Mike [facility] [place] [address] [place] [address] Referral ID Status Reason Start Date Expiration Date V isits Requested Visits Authorized [id number] Closed Specialty Service Requested 04/22/2023 10/20/2024 4 4 Encounter Details Date Type Department Care Team (Latest Contact Info) Description 04/30/2023 11:02 AM EST - 04/30/2023 11:04 AM [facility] Hospital [place] [address] Maegan Mike [facility] [place] [address] Discharge Disposition: Home Social History Tobacco Use Types Packs/Day Years Used Date Smoking Tobacco: Never Smokeless Tobacco: Never Alcohol Use Standard Drinks/Week Comments Never 0 (1 standard drink = 0.6 oz pur e alcohol) [facility] Utilities Answer Date Recorded In [...] slept in a ch[facility] (including now)? No 04/19/2023 DH IPV Inpatient [...] nightly as needed. empagliflozin (Jardiance) 10 mg TabletIndications:Placement Interviewer neal heart failure with preserved ejection fraction Take 1 tablet by mouth daily. 90 tablet 1 06/11/2021 rOPINIRole (Requip) 1 mg Tablet Take 2 mg by mouth 2 times daily. 07/16/2020 loratadine (Claritin) 10 mg Tablet Take 10 mg by mouth daily as needed. fluticasone propionate (FLONASE) 50 mcg/actuation [place], Suspension 1 spray by Each Nare route [...] AM EDT Hospital En[place] [address] Mary Reyes, ROM [facility] [place] [address] 10/21/2023 11:30 AM EDT Appointment Nuclear Medicine at [place] [phone] Mary Reyes [facility] [place] [address] 10/21/2023 12:30 PM EDT Appointment [place] [address] Mary Reyes [facility] [place] [address] 10/21/2023 1:30 PM EDT Appointment [place] [address] Mary Reyes [facility] [place] [address] 10/21/2023 2:30 PM EDT Appointment [place] [address] [place] [address] 10/26/2023 4:00 PM EDT Office Visit Cardiology at [address] [phone] Jaspreet Kinsey MD [facility] [place] [address] 10/28/2023 9:00 AM EDT Office [place] [address] 10/29/2023 10:00 AM EDT Clinical [place] [address] 10/29/2023 10:15 AM EDT Procedure [place] [address] 11/01/2023 5:00 PM EDT Office Visit [place] [phone] Selene Browning, PhD [facility] [place] [address] 11/22/2023 4:40 PM EDT Office Visit Cardiology at [address] [phone] Porsha Mcdaniels MD [facility] [place] [address] 12/13/2023 10:00 AM EDT Clinical [place] [phone] [facility] [place] [address] documented as of this encounter Procedures Procedure [...] have questions please contact the health career technical counselor that requested your imaging first. ? 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 Following IV administration of 26.5 mCi technetium 99m sestamibi, SPECT-CT of the heart was obtained. Following IV injection of 8.8 mCi 13-dwkmpk-1-deoxyglucose (FDG) and a standard uptake of approximately [...] obtained. Following IV injection of 8.8 mCi 98-whqtzl-2-deoxyglucose (FDG) and astandard uptake of approximately 60 [...] who have questions please contactthe health career technical counselor that requested your imaging first. Electronically signed by: Humberto Qureshi MD, [facility]([phone]), at 05/06/2023 11:09 AM Maegan Mike [employer] PROFESS[employer] IMG PET ORDERABLE S documented in this encounter Visit Diagnoses Not on filedocumented in this encounter Care Teams Manager Corporate Marketing Relationship Specialty Start Date End Date Polo Pearce PA [address] [place] [address] PCP - General Internal Medicine 06/09/21 documented as of this encounter
--- OUTSIDE RECORDS SUMMARY | 2023-10-20 19:56 | XMS_ITS | Encounter Summary ---
[place] [address] Care Team Providers Care Member Of The Legislative Council Name Role Phone Polo Pearce Primary Care Provider [phone] Reason for Referral * Diagnostic Test (Routine) - Closed Specialty Diagnoses / Procedures Referred By Jayant harris Referred To Contact Radiology Diagnoses Chest pain, unspecified type Procedures NM PET CT Cardiac Sarcoid Maegan Mike [employer] [facility] [place] [address] [place] [address] Referral ID Status Reason Start Date Expiration Date V isits Requested Visits Authorized [id number] Closed Specialty Service Requested 04/22/2023 10/20/2024 4 4 Reason for Visit * Diagnostic Test (Routine) - Closed Specialty Diagnoses / Procedures Referred By Contjulita t Referred To Contact Radiology Diagnoses Chest pain, unspecified type Procedures NM PET CT Cardiac Sarcoid Maegan Mike [employer] [facility] [place] [address] [place] [address] Referral ID Status Reason Start Date Expiration Date V isits Requested Visits Authorized [id number] Closed Specialty Service Requested 04/22/2023 10/20/2024 4 4 Encounter Details Date Type Department Care Team (Latest Contact Info) Description 04/30/2023 11:01 AM EST Hospital Encounter [place] [address] Maegan Mike, [facility] [place] [address] Chest pain, unspecified type Discharge Disposition: Home Social History Tobacco Use Types Packs/Day Years Used Date Smoking Tobacco: Never Smokeless Tobacco: Never Alcohol Use Standard Drinks/Week Comments Never 0 (1 standard drink = 0.6 oz pur e alcohol) [facility] Utilities Answer Date Recorded In the [...] nightly as needed. empagliflozin (Jardiance) 10 mg TabletIndications:Brand Development Manager neal heart failure with preserved ejection fraction Take 1 tablet by mouth daily. 90 tablet 1 06/11/2021 rOPINIRole (Requip) 1 mg Tablet Take 2 mg by mouth 2 times daily. 07/16/2020 loratadine (Claritin) 10 mg Tablet Take 10 mg by mouth daily as needed. fluticasone propionate (FLONASE) 50 mcg/actuation [place], Suspension 1 spray by Each Nare route [...] AM EDT Hospital Encounter [place] [address] Mary [place] [address] 10/21/2023 11:30 AM EDT Appointment [place] [address] Mary [place] [address] 10/21/2023 12:30 PM EDT Appointment [place] [address] Mary [place] [address] 10/21/2023 1:30 PM EDT Appointment [place] [address] Mary [place] [address] 10/21/2023 2:30 PM EDT Appointment [place] [address] Mary Reyes [facility] [place] [address] 10/26/2023 4:00 PM EDT Office Visit Cardiology at [address] [address] Jaspreet Kinsey MD [facility] [place] [address] 10/28/2023 9:00 AM EDT Office [place] [address] 10/29/2023 10:00 AM EDT Clinical [place] [address] 10/29/2023 10:15 AM EDT Procedure [place] [address] 11/01/2023 5:00 PM EDT Office Visit [place] [phone] Selene Browning, PhD [facility] [place] [address] 11/22/2023 4:40 PM EDT Office Visit Cardiology at [address] [phone] Porsha Mcdaniels MD [facility] [place] [address] 12/13/2023 10:00 AM EDT Clinical Support [place] [phone] [facility] [place] [address] documented as of this encounter Procedures Procedure [...] Electronically signed by: Humberto Qureshi MD, [facility] ([phone]), at 05/06/2023 11:09 AM Narrative 05/06/2023 11:09 AM EST EXAMINATION: NM PET CT CARDIAC SARCOID CLINICAL HISTORY: 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 Following IV administration of 26.5 mCi technetium 99m sestamibi, SPECT-CT of the heart was obtained. Following IV injection of 8.8 mCi 17-gcefju-9-deoxyglucose (FDG) and a standard uptake of approximately [...] obtained. Following IV injection of 8.8 mCi 28-eirejh-9-deoxyglucose (FDG) and astandard uptake of approximately 60 [...] * POCT Glucose (04/30/2023 12:19 PM EST) Glucose, POC 79 65 - 199 mg/dL [facility] Comment: Supplemental ranges: <140 mg/dL before meals <180 mg/dL all other times of the day Blood 04/30/2023 12:1 9 PM EST 04/30/2023 12:19 PM EST Maegan Mike APRN POINT OF CARE LYNETTE T ORDERABLES Performing Organization Address City/State/[facility] Co de Phone Number [facility] [place] [address] documented in this encounter Visit Diagnoses Diagnosis Chest pain, unspecified type documented in this encounter Administered Medications Inactive Administered Medications - up to 3 most recent administrations Medication Order MAR Action Action Date Dose Rate Site technetium (Tc-99m) sestamibi injection 0-30 mCi 0-30 mCi, Intravenous, 2 TIMES DAILY PRN, 2 doses, Starting on 04/30/23 at 1139, Until 05/01/23 at 0439, Per Protocol, Radiology Contrast, Routine Given 04/30/2023 11:35 AM EST 26.5 mCi Right Arm documented in this encounter Care Teams Member Of The Legislative Council Relationship Specialty Start Date End Date Polo Pearce PA [address] [place] [address] PCP - General Internal Medicine 06/09/21 documented as of this encounter
--- OUTSIDE RECORDS SUMMARY | 2023-10-20 19:56 | XMS_ITS | Encounter Summary ---
[place] [address] Care Team Providers Care Pin Ticket Machine Operator Name Role Phone Polo Pearce Primary Care Provider [phone] Reason for Visit * Diagnostic Test (Routine) - Closed Specialty Diagnoses / Procedures Referred By Jayant harris Referred To Contact Radiology Diagnoses Chest pain, unspecified type Procedures NM PET CT Cardiac Sarcoid Maegan Mike [facility] [place] [address] [place] [address] Referral ID Status Reason Start Date Expiration Date V isits Requested Visits Authorized [id number] Closed Specialty Service Requested 04/22/2023 10/20/2024 4 4 Encounter Details Date Type Department Care Team (Latest Contact Info) Description 04/30/2023 11:05 AM EST - 04/30/2023 11:59 PM EST Hospital Encounter [place] [address] Maegan Mike [facility] [place] [address] Discharge Disposition: Home Social History [...] a senior living (including now)? No 04/19/2023 DH IPV Inpatient [...] nightly as needed. 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 90 tablet 1 06/11/2021 rOPINIRole (Requip) 1 mg Tablet Take 2 mg by mouth 2 times daily. 07/16/2020 loratadine (Claritin) 10 mg Tablet Take 10 mg by mouth daily as needed. fluticasone propionate (FLONASE) 50 mcg/actuation Addison, Suspension 1 spray by Each Nare route [...] AM EDT Hospital Encounter [place] [address] Mary Reyes, ROM [facility] [place] [address] 10/21/2023 11:30 AM EDT Appointment Nuclear Medicine at [place] [phone] Mary Reyes [facility] [place] [address] 10/21/2023 12:30 PM EDT Appointment [place] [address] Mary Reyes [facility] [place] [address] 10/21/2023 1:30 PM EDT Appointment [place] [address] Mary Reyes [facility] [place] [address] 10/21/2023 2:30 PM EDT Appointment [place] [address] [place] [address] 10/26/2023 4:00 PM EDT Office Visit Cardiology at [address] [phone] Jaspreet Kinsey MD [facility] [place] [address] 10/28/2023 9:00 AM EDT Office Visit [place] [address] 10/29/2023 10:00 AM EDT Clinical Support [place] [address] 10/29/2023 10:15 AM EDT Procedure visit [place] [address] 11/01/2023 5:00 PM EDT Office Visit [place] [phone] Selene Browning, PhD [facility] [place] [address] 11/22/2023 4:40 PM EDT Office Visit Cardiology at [address] [phone] Porsha Mcdaniels MD [facility] [place] [address] 12/13/2023 10:00 AM EDT Clinical Support [place] [phone] [facility] [place] [address] documented as of this encounter Procedures Procedure [...] have questions please contact the health rn managed care that requested your imaging first. ? 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 Following IV administration of 26.5 mCi technetium 99m sestamibi, SPECT-CT of the heart was obtained. Following IV injection of 8.8 mCi 06-llxnat-5-deoxyglucose (FDG) and a standard uptake of approximately [...] obtained. Following IV injection of 8.8 mCi 18-rlkkxr-6-deoxyglucose (FDG) and astandard uptake of approximately 60 [...] who have questions please contactthe health rn managed care that requested your imaging first. Electronically signed by: Humberto Qureshi MD, [facility]([phone]), at 05/06/2023 11:09 AM Maegan Mike [employer] OPERATOR IMG PET ORDERABLE S documented in this encounter Visit Diagnoses Not on filedocumented in this encounter Care Teams Pin Ticket Machine Operator Relationship Specialty Start Date End Date Polo Pearce PA [address] [place] [address] PCP - General Internal Medicine 06/09/21 documented as of this encounter
--- OUTSIDE RECORDS SUMMARY | 2023-10-20 19:56 | XMS_ITS | Encounter Summary ---
[place] [address] Care Team Providers Care Mental Health Technician Name Role Phone Polo Pearce Primary Care Provider [phone] Reason for Referral * Diagnostic Test (Routine) - Closed Specialty Diagnoses / Procedures Referred By Jayant harris Referred To Contact Radiology Diagnoses Chest pain, unspecified type Procedures NM PET CT Cardiac Sarcoid Maegan Mike APRN [facility] [place] [address] [place] [address] Referral ID Status Reason Start Date Expiration Date V isits Requested Visits Authorized [id number] Closed Specialty Service Requested 04/22/2023 10/20/2024 4 4 Reason for Visit * Auth/Cert (Routine) Specialty Diagnoses / Procedures Referred By Jayant harris Referred To Contact Diagnoses NSTEMI (non-ST elevated myocardial infarction) NSTEMI Procedures ER Terrence Pantoja MD [facility] [place] [address] [facility] Referral ID Status Reason Start Date Expiration Date Visits Re quested Visits Authorized [id number] 1 1 Encounter Details Date Type Department Care Team (Latest Contact Info) Description 04/16/2023 11:15 PM EST - 04/22/2023 5:15 PM EST Hospital Encounter Heart and Vascular Unit Level 4 Wing B at [facility] [place] [address] Jose Gallegos MD [facility] [address] Ailyn Knight MD [facility] [place] [address] Terrence Maloney MD [facility] [place] [address] Eufemia Copeland MD [facility] [address] Chest pain, unspecified type; Non-ST elevation myocardial [...] In the past 12 months has e Pyre[employer], gas, oil, or water K121 threatened to shut off services in your [...] Loida Madrigal Patient Age: 53 y.o. Language: Northern Irish Admit date: 04/16/2023 Discharge date and time: [...] lung disease secondary to obesity transferred from [facility] for further evaluation of exertional chest pressure and breathlessness. Abnormal OSH troponin 500 and repeat HS Trop at [facility] peak 27 with flat trend and elevated [...] discharge Inpatient Provider Contact Information: Cardiovascular Medicine [phone] Discharge Diagnoses (Hospital Problems) and Secondary Diagnoses [...] motion has increased. CTA PE protocol at [facility]- no PE but showed small pericardial effusion and some GG opacities. History of Presentation: Loida Madrigal is a 53 y.o. with hx of paroxysmal A-fib (diagnosed on 10/20/2022), pulmonary emboli on Eliquis, HFpEF (EF of 59%), supraventricular tachycardia (AVNRT since 06/2021) s/p EPS and SVTablation on 1/25/[address] Tovar on [facility], restrictive lung disease secondary to obesity presents from [facility] with complains of chest discomfort that started overnight. The patient has been experiencing ongoing chest pain, prompting admission on 02/11/23 primarily due to concerns about a NSTEMI indicated by elevated troponin levels and EKG changes noted at OSH. However, the observed EKG changes remained largely consistent with previous recordings. Troponin levels at [facility] showed a plateau at 23 > 27. [...] again 10/15, improving with sublingua Nitro. At [facility] Vitals: HR 48, BP 115/42, O2 96% [...] #Acute on chronic HFpEF Patient presented to [facility] on 04/16 with chest pain responsive to SL NTG. Troponin ~500x2. Transferredto [facility] for further evaluation. Troponin at [facility], 24>23 w/ repeat peak 27->26. She [...] days. Refills: 0 fluticasone propionate 50 mcg/actuation [place], Suspension Commonly known as: Flonase 1 spray [...] 9:40 AM Jaspreet Kinsey MD Cardiology at [place] Arrive at: [facility] [address] [phone] 09/21/2023 3:00 PM Jaspreet Kinsey MD Cardiology at [place] Arrive at: [facility] [address] [phone] Discharge References/Attachments None Greater than 30 minutes was spent on this discharge including documentation, qbri-[id number]-gkex time withthe patient, patient education, short order fry cook, coordination with pharmacy and other patient care. [...] away. Stay on the phone. The emergency stretch press operator will tell you what to [...] of 8AM-5PM please call the Cardiology Clinic [phone] to speak with a nurse. All other hours please call the Hospital Leave Manager [phone] and ask to speak to the tire recapper on-call. Return to work: One week Follow up Appointments: Doctor Where Phone # Date Time PCP JOCY Franco [address] [place] [address] 04/28/2023 7:[address] Kinsey [facility] [address] 05/10/2023 9:40 AM * Attachments The following attachments cannot be sent through Care Everywhere. * Coronary Angiogram: Post-op (Northern Irish) documented in this encounter Medications at Time [...] nightly as needed. empagliflozin (Jardiance) 10 mg TabletIndications:Membership Sales Representative neal heart failure with preserved ejection fraction Take 1 tablet by mouth daily. 90 tablet 1 06/11/2021 rOPINIRole (Requip) 1 mg Tablet Take 2 mg by mouth 2 times daily. 07/16/2020 loratadine (Claritin) 10 mg Tablet Take 10 mg by mouth daily as needed. fluticasone propionate (FLONASE) 50 mcg/actuation [place], Suspension 1 spray by Each Nare route [...] reviewed with pt, pt wheeled to d/[place] [facility] [place] [place] I agree with the information in this [...] note were not included. CARDIOLOGY APP1 - [facility] DAILY PROGRESS NOTE Page [phone] to reach a provider 28/09 Admit Date: [...] 12 CRP <=4.9 mg/L <3.0 <3.0 OSH [facility] troponin ~500. Telemetry: I have personally reviewed [...] disease secondary to obesity who presented to [facility] on 04/16 with chest pain responsive to SL NTG. Troponin ~500x2. Transferred to [facility] for further evaluation. Troponin at [facility], 24>23. Reports exertional chest pressure and [...] Score: 24 PT: OT: PCP JOCY Franco [phone] Discussed with MD Kurt Ray PA-C APP1 pager [phone] 04/22/2023 CV HOSPITALIST ADDENDUM Date of Service: [...] 04/21/2023 6:10 PM EST CARDIOLOGY APP1 - [facility] DAILY PROGRESS NOTE Page [phone] to reach a provider 28/09 Admit Date: [...] 12 CRP <=4.9 mg/L <3.0 <3.0 OSH [facility] troponin ~500. Telemetry: I have personally reviewed [...] disease secondary to obesity who presented to [facility] on 04/16 with chest pain responsive to SL NTG. Troponin ~500x2. Transferred to [facility] for further evaluation. Troponin at [facility], 24>23. Reports exertional chest pressure and [...] and no pericardial effusion. She underw ent [facility] on 04/18 which showed non-obstructive [...] occur Diet: Daily Healthy Menu Choices/Cardiac diet ([facility]-Diet) 2 GM NA DVT Prophylaxis: DOAC Code status: Attempt Cardiopulmonary Resuscitation - Inpatient Disposition: Discharge Location: AM-PAC Basic Mobility Raw Score: 22 PT: OT: PCP JOCY Franco [phone] * Eufemia Copeland MD - 04/20/2023 4:34 PM EST CARDIOLOGY APP1 - [facility] DAILY PROGRESS NOTE Page [phone] to reach a provider 28/09 Admit Date: [...] 12 CRP <=4.9 mg/L <3.0 <3.0 OSH [facility] troponin ~500. Telemetry: I have personally reviewed [...] disease secondary to obesity who presented to [facility] on 04/16 with chest pain responsive to SL NTG. Troponin ~500x2. Transferred to [facility] for further evaluation. Troponin at [facility], 24>23. Reports exertional chest pressure and [...] and no pericardial effusion. She underw ent [facility] on 04/18 which showed non-obstructive [...] occur Diet: Daily Healthy Menu Choices/Cardiac diet ([facility]-Diet) 2 GM NA; 2000 mL FLUID DVT Prophylaxis: DOAC Code status: Attempt Cardiopulmonary Resuscitation - Inpatient Disposition: Discharge Location: AM-[facility] Basic Mobility Raw Score: 24 PT: OT: PCP JOCY Franco [phone] * Carrol La PA - 04/19/2023 12:32 PM EST CARDIOLOGY APP1 - [facility] DAILY PROGRESS NOTE Page [phone] to reach a provider 28/09 Admit Date: [...] 12 CRP <=4.9 mg/L <3.0 <3.0 OSH [facility] troponin ~500. EKG: Sinus bradycardia, 47 bpm, PAC, possible left atrial enlargement, possible lateral infarct, QTc 511. Telemetry: I have personally reviewed and interpreted the telemetry from the last 24 hours. Resultsshow sinus bradycardia with HR 50s, PVCs, heart rate climbs to 70s with activity.. Imaging: [facility] 04/18/23 Conclusions: * Nonobstructive coronary [...] motion has increased. CTA PE protocol at [facility]- no PE but showed small pericardial effusion [...] acute aortopathy. 4. No acute pulmonary findings. [facility] 06/09/2021-RA 4, PA 38/15 (24) PCWP 11, CO/CI 3.14/1.6. [facility] 08/30/2019-normal coronary arteries. Assessment & [...] disease secondary to obesity who presented to [facility] on 04/16 with chest pain responsive to SL NTG. Troponin ~500x2. Transferred to [facility] for further evaluation. Troponin at [facility], 24>23. Reports exertional chest pressure and [...] continues. Diet: Daily Healthy Menu Choices/Cardiac diet ([facility]-Diet) 2 GM NA; 2000 mL FLUID DVT Prophylaxis: DOAC Code status: Attempt Cardiopulmonary Resuscitation - Inpatient Disposition: Discharge Location: AM-[facility] Basic Mobility Raw Score: 24 PT: OT: PCP JOCY Franco [phone] Discussed with MD Carrol Aly PA-C APP1 Pager: [phone] 04/19/2023 * Nikkie Lew RCP - 04/18/2023 [...] note were not included. CARDIOLOGY APP1 - [facility] DAILY PROGRESS NOTE Page [phone] to reach a provider 28/09 Admit Date: [...] breathlessness. Awaiting cardiac catheterization potentially today if Cytology Supervisor availability allows.She remains on ACS therapies. Medications: [...] motion has increased. CTA PE protocol at [facility]- no PE but showed small pericardial effusion [...] lung disease secondary to obesity presents from [facility] with complains of exertional chest [...] ongoing chest pain -C 04/18 depending on Cytology Supervisor availability. #Hx of pAfib #Hx of AVNRT [...] Score: 24 PT: OT: PCP JOCY Franco [phone] Discussed with MD Kurt Sheppard PA-C APP1 pager [phone] 04/18/2023 * Kurt Silveira PA - 04/17/2023 7:15 AM EST Images from the original note were not included. CARDIOLOGY APP1 - [facility] DAILY PROGRESS NOTE Page [phone] to reach a provider 28/09 Admit Date: [...] 12 CRP <=4.9 mg/L <3.0 <3.0 OSH [facility] troponin ~500. EKG: Sinus bradycardia, 47 bpm, [...] motion has increased. CTA PE protocol at [facility]- no PE but showed small pericardial effusion [...] PA 38/15 (24) PCWP 11, CO/CI 3.14/1.6. [facility] 08/30/2019-normal coronary arteries. Assessment & [...] lung disease secondary to obesity presents from [facility] with complains of exertional chest [...] pain -C 04/18 or 04/19 depending on Cytology Supervisor availability. #Hx of pAfib #Hx of AVNRT sp EPS and Ablation - hold eliquis. Last taken on 04/16/23 am. - Continue IV heparin. # Hx of PE- continue with IV heparin Diet: No diet orders on file DVT Prophylaxis: DOAC Code status: Attempt Cardiopulmonary Resuscitation - Inpatient Disposition: Discharge Location: AM-[facility] Basic Mobility Raw Score: 14 PT: OT: PCP JOCY Franco [phone] Discussed with MD Kurt Sheppard PA-C APP1 pager [phone] 04/17/2023 documented in this encounter H&P Notes [...] SVTablation on 04/01/[address] Tovar on [facility], restrictive lung disease secondary to obesity presents from [facility] with complains of chest discomfort that started overnight. The patient has been experiencing ongoing chest pain, prompting admission on 02/11/23 primarily due to concerns about a NSTEMI indicated by elevated troponin levels and EKG changes noted at OSH. However, the observed EKG changes remained largely consistent with previous recordings. Troponin levels at [facility] showed a plateau at 23 > 27. [...] again 10/15, improving with sublingua Nitro. 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 fluticasone propionate (FLONASE) 50 mcg/actuation [place], Suspension 1 spray by Each Nare route [...] SVTablation on 04/01/[address] Tovar on [facility], restrictive lung disease secondary to obesity presents from [facility] with complains of chest discomfort [...] if hypotensive / cardiogenic shock / inferior LA / sildenafil within past 24 hours) - [...] (see comments), grab bar - tub/shower (CPAP [facility]) DME Needed at Discharge: N/A Patient is insured through: Primary Insurance: [employer] [place] [employer] [place] / Plan[place] / Product Type: *No Product type* / Secondary Insurance: N/A Prescription Coverage: Yes This plan was formulated with input from patient and team. All are in agreement with plan. * Consult Note - Maegan Mike APRN - 04/22/2023 10:38 AM EST Images from the original note were not included. [facility] [place] [address] INPATIENT CARDIOLOGY CONSULT PROGRESS NOTE Interval events: [...] with MD Maegan De Leon, ROM Pager [phone] 04/22/2023 Associated attestation - Jaspreet Kinsey MD [...] Tatum MSW - 04/20/2023 2:22 PM EST YARDAGE CONTROL CLERK received a consult to support patient with financial concerns. YARDAGE CONTROL CLERK met with patient and introduced self. Patient stated due to hospitalization, she has been out of work and feeling stress around not being able to pay bills. I have a car payment and other bills and it's like I have to choose which one to pay and which one not to pay. YARDAGE CONTROL CLERK validated patient's stress around financial concerns. YARDAGE CONTROL CLERK asked patient if she has applied for Collect or any other state benefits. Patient stated that she has, but is over the household income criteria to qualify for benefits. Patient shared that she owns her home outright and mainly concerned about making her car payment and transportation home. MSWstated that care management will help arrange for a ride, if needed. YARDAGE CONTROL CLERK provided patient with community resources such as the [employer], the [facility] Community Action phone number, and the [facility] [employer] on Aging contact info. YARDAGE CONTROL CLERK available to support patient should anything else [...] Admitted From: Transfer from another hospital Location: [facility] Reason for Hospitalization: chest pain and cough Covid Vaccination Status: 1st, 2nd & booster Last COVID test: Lab Results Component Value Date [id number] Not Detected 06/13/2021 Past medical History: Past [...] In the past 12 months has the Pyre[employer], gas, oil, or water K121 threatened to shut off services in your home?: Yes ([employer] is currently threatening to shut off electricity [...] Home Address confirmed as: [address] [facility] [place] [address] Social & Family Supports: All names listed below confirmed with patient as current and correct Extended Emergency Contact Information Primary Emergency Contact: Boby Madrigal Dr. TATTOFF Relation: Spouse Secondary Emergency Contact: TALI SHAH [...] Specific Information: N/A Health/Prescription Coverage: Primary Insurance: [employer] [facility] [place] Payor: [employer] [facility] [place] / Plan: [place] EXCHANGE / Product Type: *No Product type* / Secondary Insurance: N/A ; Prescription Coverage: Yes Preferred Pharmacy: [id number] - [place], [place] - [address] [facility] [address] [facility] [address] [facility] - [place], [place] - [address] [facility] [address] [place] [address] [facility] [address] [place] Status: Patient is a : No Primary Care Provider confirmed: JOCY Franco [phone] Patient/Caregiver Goals of Treatment: home w / family when MR Potential Needs for Transition of Care: other (see comments) (YARDAGE CONTROL CLERK support; pt's spouse was denied twice for [...] Concerns to be Addressed: financial/insurance, discharge planning; YARDAGE CONTROL CLERK consult placed to discuss available resources Assessment: Patient is admitted to [facility] service for NSTEMI [...] not included. [facility] [place] [address] INPATIENT CARDIOLOGY CONSULT NOTE Reason for Consult: [...] ACS with DAPT and heparin prior to [facility] 04/18, which was negative for [...] Went to cathlab, came back ~1115am, s/p [facility] with no coronary artery disease [...] for further details. JOCY Marie 04/17/2023 Pager [phone] * Plan of Care - Sudhakar Smith [...] AM EDT Hospital Encounter [place] [address] Mary Reyes [facility] [place] [address] 10/21/2023 11:30 AM EDT Appointment [place] [address] Mary Reyes [facility] [place] [address] 10/21/2023 12:30 PM EDT Appointment [place] [address] Mary Reyes [facility] [place] [place] [address] 10/21/2023 1:30 PM EDT Appointment [place] [address] Mary Reyes [place] [address] 10/21/2023 2:30 PM EDT Appointment [place] [address] [place] [address] 10/26/2023 4:00 PM EDT Office Visit Cardiology at [address] [address] Jaspreet Kinsey MD [facility] [place] [address] 10/28/2023 9:00 AM EDT Office [place] [address] 10/29/2023 10:00 AM EDT Clinical Support [place] [address] 10/29/2023 10:15 AM EDT Procedure [place] [address] 11/01/2023 5:00 PM EDT Office Visit [place] [phone] Selene Browning, [facility] [place] [address] 11/22/2023 4:40 PM EDT Office Visit Cardiology at [address] [address] Porsha Mcdaniels MD [facility] [place] [address] 12/13/2023 10:00 AM EDT Clinical Support [place] [address] [facility] [place] [address] documented as of this encounter Procedures Procedure Name Priority Date/Time Associated Diagnosis Comments MRI CARDIAC MORPHOLOGY FUNCTION WWO CONTRAST Routine 04/21/2023 12:45 PM EST BMP W/FASTING GLUCOSE Routine 04/21/2023 3:40 AM EST HEMOGRAM Routine 04/21/2023 3:40 AM EST MAGNESIUM Routine 04/21/2023 3:40 AM EST TROPONIN - SERIES STAT 04/20/2023 4:4 4 PM EST DUPLEX FOR DVT, ARM, UNILAT Routine 04/20/2023 4:22 PM EST Arm edema TROPONIN - SERIES STAT 04/20/2023 1:4 7 PM EST TROPONIN - SERIES STAT 04/20/2023 10: 48 AM EST EKG 12-LEAD STAT 04/20/2023 10:23 AM EST Chest pain, unspecified type BMP W/FASTING GLUCOSE Routine 04/20/2023 3:11 AM EST HEMOGRAM Routine 04/20/2023 3:11 AM EST MAGNESIUM Routine 04/20/2023 3:11 AM EST RESPIRATORY PANEL PCR Routine 04/19/2023 2:05 PM EST URINALYSIS MICROSCOPIC EXAM Routine 04/19/2023 10:25 AM EST URINALYSIS WITH REFLEX CULTURE Routine 04/19/2023 10:25 AM EST URINE CULTURE Routine 04/19/2023 10:25 AM EST ARTERIAL DUPLEX ARM, UNILAT Routine 04/19/2023 9:40 AM EST Swelling of hand, unspecified laterality BMP W/FASTING GLUCOSE Routine 04/19/2023 2:40 AM EST HEMOGRAM Routine 04/19/2023 2:40 AM EST MAGNESIUM Routine 04/19/2023 2:40 AM EST CARDIAC CATHETERIZATION Routine 04/18/19 11:05 AM EST HEPARIN (UNFRACTIONATED) LEVEL Timed 04/18/2023 8:23 AM EST HEPARIN (UNFRACTIONATED) LEVEL Timed 04/18/2023 2:10 AM EST BMP W/FASTING GLUCOSE Routine 04/18/2023 2:10 AM EST HEMOGRAM Routine 04/18/2023 2:10 AM EST DIFFERENTIAL, AUTOMATED Routine 04/18/19 2:10 AM EST CBC (WITH DIFF) Routine 04/18/2023 2:10 AM EST MAGNESIUM Routine 04/18/2023 2:10 AM EST LDL CHOLESTEROL, DIRECT Routine 04/18/19 2:10 AM EST HEMOGLOBIN A1C Routine 04/18/2023 2:10 AM EST LIPID PANEL (REFLEX DIRECT LDL) Routine 04/18/2023 2:10 AM EST POCT GLUCOSE Routine 04/17/2023 7:44 PM EST HEPARIN (UNFRACTIONATED) LEVEL Timed 04/17/2023 6:01 PM EST HEPARIN (UNFRACTIONATED) LEVEL Timed 04/17/2023 12:45 PM EST ECHO LMTD W CONTRAST W LMTD SPEC DOPP COLOR DOPP Routine 04/17/2023 11:59 AM EST Chest pain, unspecified type Non-ST elevation myocardial infarction (NSTEMI) TROPONIN - SERIES STAT 04/17/2023 6:4 3 AM EST HEPARIN (UNFRACTIONATED) LEVEL Timed 04/17/2023 6:43 AM EST EKG 12-LEAD Routine 04/17/2023 3:41 AM EST Chest pain, unspecified type TROPONIN - SERIES STAT 04/17/2023 3:3 3 AM EST CRP, ACUTE INFLAMMATION Routine 04/17/19 24 3:33 AM EST HEMOGRAM Routine 04/17/2023 3:33 AM EST DIFFERENTIAL, AUTOMATED Routine 04/17/19 24 3:33 AM EST HC PARTIAL THROMBOPLASTIN TIME Routine 04/17/2023 3:33 AM EST SEDIMENTATION RATE Routine 04/17/2023 3: 33 AM EST PROTHROMBIN TIME Routine 04/17/2023 3:33 AM EST CBC (WITH DIFF) Routine 04/17/2023 3:33 AM EST TSH Routine 04/17/2023 3:33 AM EST PHOSPHORUS Routine 04/17/2023 3:33 AM EST PRO-BRAIN NATRIURETIC PEPTIDE Routine 04/17/2023 3:33 AM EST MAGNESIUM Routine 04/17/2023 3:33 AM EST HEPATIC FUNCTION PANEL Routine 3:33 AM EST BASIC METABOLIC PANEL STAT 04/17/2023 3:33 AM EST FILM LIBRARY [...] signed by: Humberto Qureshi MD, [facility] ([phone]), at 05/06/2023 11:09 AM Narrative 05/06/2023 11:09 AM EST EXAMINATION: NM PET CT CARDIAC SARCOID CLINICAL HISTORY: 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 Following IV administration of 26.5 mCi technetium 99m sestamibi, SPECT-CT of the heart was obtained. Following IV injection of 8.8 mCi 04-ukpztu-7-deoxyglucose (FDG) and a standard uptake of approximately [...] obtained. Following IV injection of 8.8 mCi 03-lilxzl-2-deoxyglucose (FDG) and astandard uptake of approximately 60 [...] signed by: Humberto Qureshi MD, [facility]([phone]), at 05/06/2023 11:09 AM Maegan Mike ROM IMG PET ORDERABLE S * MRI Cardiac [...] ? Electronically signed by: Karon Nur MD, [facility] ([phone]), at 04/21/2023 5:33 PM Narrative 04/21/2023 5:33 [...] first. Electronically signed by: Karon Nur MD, [facility] ([phone]), at 04/21/2023 5:33 PM Terrence Maloney MD IMG MRI ORDERABLES * Hemogram (04/21/2023 3:40 AM EST) White Blood Cell 7.1 4.0 - 9.5 x10(3)/[facility] LABORATORY Red Blood Cell 4.59 4.00 - 5.21 x10(6)/[facility] LABORATORY Hemoglobin 14.4 11.7 - 15.5 g/dL [facility] Hematocrit 43.0 35.7 - 45.8 % [facility] Mean Cell Volume 93.7 82.6 - 94.4 fL [facility] Mean Cell Hemoglobin 31.4 27.1 - 32.0 pg [facility] Mean Cell Hemoglobin Concentration 33.5 31.7 - 35.0 g/dL [facility] Platelet 221 145 - 357 x10(3)/mcL [facility] RDW Standard Deviation 43.5 37.0 - 46.0 fL [facility] [facility] RDW coefficient of variation 12.6 11.5 - 14.1 % [facility] Mean Platelet Volume 11.1 7.6 - 12.9 fL [facility] NRBC% auto 0.0 % [facility] NRBC Absolute 0.000 0.000 - 0.000 x10(3)/[facility] Blood 04/21/2023 3:40 AM EST 04/21/2023 3:58 AM EST Narrative Resulting Agency Comment Spec In Lab Ailyn Knight MD HEMATOLOGY ORDERABLE S Performing Organization Address City/State/[facility] Co de Phone Number [facility] [place] [address] * (ABNORMAL) BMP w/fasting Glucose (04/21/2023 3:40 AM EST) Glucose Fasting 107(H) 65 - 99 mg/dL [facility] Comment: ?Fasting* Glucose Interpretive Criteria Normal [...] of Diabetes Mellitus, Position Statement from the [employer]. ??Diabetes Care, Volume 33, Supplement 1, Mar 2009 Blood Urea Nitrogen 20(H) 8 - 18 mg/dL [facility] Creatinine 1.14 0.70 - 1.20 mg/dL [facility] Sodium 138 135 - 145 mmol/L [facility] Potassium 3.8 3.5 - 5.0 mmol/L [facility] Comment: Please note: ??Patients with WBC >100,000 may have falsely elevated Potassium levels. ??For accurate Potassium quantification in these patients send serum separator tube (gold top) for subsequent determinations. ??Contact the Clinical Chemistry Laboratory if there are any questions. Chloride 106 98 - 107 mmol/L [facility] Carbon Dioxide 22 22 - 31 mmol/L [facility] Anion Gap 10 5 - 15 mmol/L [facility] Calcium 9.2 8.5 - 10.5 mg/dL [facility] Est Glomerular Filtration Rate 57(L) >=60 mL/min/1. 73 m?? [facility] Comment: This patient's estimated GFR was [...] Knight MD CHEMISTRY ORDERABLES Performing Organization Address City/State/[facility] Co de Phone Number [facility] [place] [address] * Magnesium (04/21/2023 3:40 AM EST) Magnesium 0.90 0.69 - 1.07 mmol/L [facility] Blood 04/21/2023 3:40 AM EST 04/21/2023 3:58 AM EST Narrative Resulting Agency Comment Spec In Lab Ailyn Knight MD CHEMISTRY ORDERABLES [facility] [place] [address] * (ABNORMAL) Troponin (04/20/2023 4:44 PM EST) Troponin-T, High Sensitivity 26(H) <=14 ng/L [facility] Comment: This patient's troponin T concentration [...] can be found in the [facility] Laboratory Test Catalog Troponin - [facility] Laboratory Test Catalog Reference: Fourth [place] Definition of Myocardial Infarction. Journal of the [place] [employer] 2018;72:8587-5593 Blood 04/20/2023 4:44 PM EST 04/20/2023 4:53 PM EST Narrative Resulting Agency Comment Spec In Lab Eufemia Copeland MD CHEMISTRY ORDERABL ES Performing Organization Address City/[facility]/ZIP Co de Phone Number [facility] [place] [address] * Duplex for DVT, Arm, Unilat (04/20/2023 4:22 PM EST) VB Text Report Department: Vascular Surgery Lab Patient: [id number] (LOIDA MADRIGAL) CPT: 47895 Referring Physician: TERRENCE MALONEY ?? Phone: Indications: [...] * (ABNORMAL) Troponin (04/20/2023 1:47 PM EST) Troponin-T, High Sensitivity 27(H) <=14 ng/L [facility] Comment: This patient's troponin T concentration [...] can be found in the [facility] Laboratory Test Catalog Troponin - [facility] Laboratory Test Catalog Reference: Fourth [place] Definition of Myocardial Infarction. Journal of the [employer] 2018;72:6788-6733 Blood 04/20/2023 1:47 PM EST 04/20/2023 2:18 PM EST Narrative Resulting Agency Comment Spec In Lab Eufemia Copeland MD CHEMISTRY ORDERABL ES [facility] [place] [address] * (ABNORMAL) Troponin (04/20/2023 10:48 AM EST) Troponin-T, High Sensitivity 24(H) <=14 ng/L [facility] Comment: This patient's troponin T concentration [...] can be found in the [facility] Laboratory Test Catalog Troponin - [facility] Laboratory Test Catalog Reference: Fourth [place] Definition of Myocardial Infarction. Journal of the [employer] 2018;72:1689-9422 Blood 04/20/2023 10:4 8 AM EST 04/20/2023 11:03 AM EST Narrative Resulting Agency Comment Spec In Lab Eufemia Copeland MD CHEMISTRY ORDERABL ES Performing Organization Address [facility] Co de Phone Number [facility] [place] [address] * EKG 12 Lead (04/20/2023 10:23 AM EST) Ventricular rate 60 BPM MUSE SYSTEM Atrial Rate 60 BPM MUSE SYSTEM P-R Interval 170 ms MUSE SYSTEM QRS Duration 86 ms MUSE SYSTEM Q-T Interval 470 ms MUSE SYSTEM QTC Calculated (Bezet) 470 ms MUSE SYSTEM Calculated P [place] 39 degrees MUSE SYSTEM Calculated R [place] 63 degrees MUSE SYSTEM Calculated T [place] -16 degrees MUSE SYSTEM INTERPRETATION Normal sinus [...] leads Confirmed by MD Eli, Manish [place] ([id number]) on 04/22/2023 12:10:07 PM MUSE SYSTEM 04/20/2023 10:2 3 AM EST 04/22/2023 12:10 PM EST Terrence Maloney MD ECG ORDERABLES Performing Organization Address City/[facility]/ZIP Co de Phone Number MUSE SYSTEM * Hemogram (04/20/2023 3:11 AM EST) White Blood Cell 6.6 4.0 - 9.5 x10(3)/[facility] Red Blood Cell 4.59 4.00 - 5.21 x10(6)/[facility] Hemoglobin 14.2 11.7 - 15.5 g/dL [facility] Hematocrit 42.7 35.7 - 45.8 % [facility] Mean Cell Volume 93.0 82.6 - 94.4 fL [facility] Mean Cell Hemoglobin 30.9 27.1 - 32.0 pg [facility] Mean Cell Hemoglobin Concentration 33.3 31.7 - 35.0 g/dL [facility] Platelet 231 145 - 357 x10(3)/[facility] RDW Standard Deviation 43.6 37.0 - 46.0 fL [facility] RDW coefficient of variation 12.6 11.5 - 14.1 % [facility] Mean Platelet Volume 11.0 7.6 - 12.9 fL [facility] NRBC% auto 0.0 % [facility] NRBC Absolute 0.000 0.000 - 0.000 x10(3)/[facility] Blood 04/20/2023 3:11 AM EST 04/20/2023 3:24 AM EST Narrative Resulting Agency Comment Spec In Lab Ailyn Knight MD HEMATOLOGY ORDERABLE S Performing Organization Address City/State/[facility] Co de Phone Number [facility] [place] [address] * (ABNORMAL) BMP w/fasting Glucose (04/20/2023 3:11 AM EST) Glucose Fasting 107(H) 65 - 99 mg/dL [facility] Comment: ?Fasting* Glucose Interpretive Criteria Normal [...] of Diabetes Mellitus, Position Statement from the [employer]. ??Diabetes Care, Volume 33, Supplement 1, Mar 2009 Blood Urea Nitrogen 20(H) 8 - 18 mg/dL [facility] Creatinine 1.05 0.70 - 1.20 mg/dL [facility] Sodium 139 135 - 145 mmol/L [facility] Potassium 3.6 3.5 - 5.0 mmol/L [facility] Comment: Please note: ??Patients with WBC >100,000 may have falsely elevated Potassium levels. ??For accurate Potassium quantification in these patients send serum separator tube (gold top) for subsequent determinations. ??Contact the Clinical Chemistry Laboratory if there are any questions. Chloride 106 98 - 107 mmol/L [facility] Carbon Dioxide 21(L) 22 - 31 mmol/L [facility] Anion Gap 12 5 - 15 mmol/L [facility] Calcium 9.3 8.5 - 10.5 mg/dL [facility] Est Glomerular Filtration Rate 63 >=60 mL/min/1. 73 m?? [facility] Comment: This patient's estimated GFR was [...] Knight MD CHEMISTRY ORDERABLES Performing Organization Address City/[facility]/ZIP Co de Phone Number [facility] [place] [address] * Magnesium (04/20/2023 3:11 AM EST) Magnesium 0.91 0.69 - 1.07 mmol/L [facility] Blood 04/20/2023 3:11 AM EST 04/20/2023 3:24 AM EST Narrative Resulting Agency Comment Spec In Lab Ailyn Knight MD CHEMISTRY ORDERABLES Performing Organization Address City/[facility]/ZIP Co de Phone Number [facility] [place] [address] * Respiratory Panel PCR (04/19/2023 2:05 PM EST) Respiratory Panel Source [employer] [facility] Respiratory Panel PCR Negative Negative [facility] Comment: Respiratory Panels are performed on the [employer], using multiplexed PCR nucleic acid detection. ??Negative results do not preclude respiratory infection and should not be used as the sole basis for diagnosis, treatment or other management decisions. Adenovirus Not Detected Not Detected [facility] Coronavirus HKU1 Not Detected Not Detected [facility] Coronavirus NL63 Not Detected Not Detected [facility] Coronavirus 229E Not Detected Not Detected [facility] Coronavirus OC43 Not Detected Not Detected [facility] SARS-CoV-2 Not Detected Not Detected [facility] Comment: Testing for SARS-CoV-2 (Severe acute respiratory syndrome coronavirus 2) to aid in the diagnosis of COVID-19 is performed using the [employer]Fire Respiratory Panel 2.1 ([employer]) as authorized by the FDA issued Emergency Use Authorization (EUA). This panel also tests for multiple other viral and bacterial pathogens. This assay is intended for In-vitro Diagnostic (IVD) use with nasopharyngeal swabs in viral transport media. The assay is performed based on the instructions for use and additional guidance provided by the FDA. Testing is performed in laboratories within the [facility], each of which is certified under the [...] fact sheets at the following FDA website: https://www.fda.gov/medical-devices/idqrppcmlil-iyxhnlw-5666-ljitt-37-ahytmnysz- use-a vanoltveyiywq-pjjmhzp-fkbpgzb/biluf-bpwqcejgbhy-lpzt Human Metapneumovirus Not Detected Not Detected [facility] Human Rhinovirus/Enterov irus Not Detected Not Detected [facility] Influenza A Not Detected Not Detected [facility] Influenza B Not Detected Not Detected [facility] Parainfluenza 1 Not Detected Not Detected [facility] Parainfluenza 2 Not Detected Not Detected [facility] Parainfluenza 3 Not Detected Not Detected [facility] Parainfluenza 4 Not Detected Not Detected [facility] Respiratory Syncytial Virus Not Detected Not Detected [facility] Chlamydophila pneumoniae Not Detected Not Detected [facility] Mycoplasma pneumoniae Not Detected Not Detected [facility] Nasopharyngeal Swab Other / Unknown 04/19 2:05 PM EST 04/19/2023 3:16 PM EST Narrative Resulting Agency Comment Spec In Lab Carrol SANDRA MICROBIOLOGY - GENER AL ORDERABLES [facility] [place] [address] * (ABNORMAL) Urine culture (04/19/2023 10:25 AM EST) Urine Culture 10,000-49,000 cfu/ml mixed mucosal elmer Note: Culture shows multiple bacterial species suggesting mucosal contamination. (A) [facility] Clean Catch Urine 04/19/2023 10:25 AM EST 04/19/2023 12:49 PM EST Narrative Resulting Agency Comment Spec In Lab Carrol SANDRA MICROBIOLOGY - GENER AL ORDERABLES Performing Organization Address City/[facility]/ZIP Co de Phone Number [facility] [place] [address] * (ABNORMAL) Urinalysis Microscopic Exam (04/19/2023 10:25 AM EST) RBC, Urine 1 0 - 4 /HPF [facility] WBC, Urine 10(H) 0 - 5 /HPF [facility] Squamous Epithelial Cells Raw Data, Urine 4 <=4 /HPF [facility] Hyaline Casts, Urine 1 0 - 2 /LPF [facility] Clean Catch Urine 04/19/2023 10:25 AM EST 04/19/2023 11:08 AM EST Narrative Resulting Agency Comment Spec In Lab Carrol SANDRA URINE ORDERABLES Performing Organization Address City/[facility] Co de Phone Number [facility] [place] [address] * (ABNORMAL) Urinalysis with reflex Culture (04/19/2023 10:25 AM EST) Glucose, Urine Dipstick >=1000(Criti edy) Negative mg/dL [facility] Comment: Urinalysis result NOT critical without a combination of Glucose greater than or equal to 500 mg/dL AND Ketones greater than or equal to 80 mg/dL Protein, Urine Dipstick Negative Negative mg/dL [facility] Bilirubin, Urine Dipstick Negative Negative mg/dL [facility] Comment: Clinical correlation required for positive Urine Bilirubin results as false positive may occur with some drugs and drug related products. If a false positive is suspected a serum total bilirubin should be considered if clinically indicated. Urobilinogen, Urine Dipstick Normal Normal mg/dL [facility] pH, Urn (dipstick) 5.5 5.0 - 8.0 [facility] Blood, Urine Dipstick Negative Negative mg/dL [facility] Ketone, Urine Dipstick Negative Negative mg/dL [facility] Nitrite, Urine Dipstick Negative Negative [facility] Leukocytes, Urine Dipstick Small(A) Negative mcL [facility] Appearance, Urine Dipstick Clear Clear [facility] Specific [place] Urine Automated 1.024 1.005 - 1.030 [facility] Color, Urine Dipstick Yellow Yellow [facility] Reflex to Culture Yes [facility] Clean Catch Urine 04/19/2023 10:25 AM EST 04/19/2023 11:08 AM EST Narrative Resulting Agency Comment Spec In Lab Ailyn Knight MD URINE ORDERABLES [facility] [place] [address] * Arterial Duplex Arm, Unilat (04/19/2023 9:40 AM EST) VB Text Report Department: Vascular Surgery Lab Patient: [id number] (LOIDA MADRIGAL) CPT: [id number] Referring Physician: AILYN KNIGHT ?? Phone: Indications: [...] VASCU[facility] * Hemogram (04/19/2023 2:40 AM EST) White Blood Cell 7.5 4.0 - 9.5 x10(3)/[facility] LABORATORY Red Blood Cell 4.86 4.00 - 5.21 x10(6)/[facility] Hemoglobin 14.8 11.7 - 15.5 g/dL [facility] Hematocrit 45.5 35.7 - 45.8 % [facility] Mean Cell Volume 93.6 82.6 - 94.4 fL [facility] Mean Cell Hemoglobin 30.5 27.1 - 32.0 pg [facility] Mean Cell Hemoglobin Concentration 32.5 31.7 - 35.0 g/dL [facility] Platelet 240 145 - 357 x10(3)/[facility] LAB[facility] RDW Standard Deviation 43.8 37.0 - 46.0 fL [facility] RDW coefficient of variation 12.7 11.5 - 14.1 % [facility] Mean Platelet Volume 11.0 7.6 - 12.9 fL [facility] NRBC% auto 0.0 % [facility] NRBC Absolute 0.000 0.000 - 0.000 x10(3)/[facility] Blood 04/19/2023 2:40 AM EST 04/19/2023 2:57 AM EST Narrative Resulting Agency Comment Spec In Lab Ailyn Knight MD HEMATOLOGY ORDERABLE S [facility] [place] [address] * (ABNORMAL) BMP w/fasting Glucose (04/19/2023 2:40 AM EST) Glucose Fasting 106(H) 65 - 99 mg/dL [facility] Comment: ?Fasting* Glucose Interpretive Criteria Normal [...] of Diabetes Mellitus, Position Statement from the [place] [employer]. ??Diabetes Care, Volume 33, Supplement 1, Mar 2009 Blood Urea Nitrogen 22(H) 8 - 18 mg/dL [facility] Creatinine 1.11 0.70 - 1.20 mg/dL [facility] Sodium 139 135 - 145 mmol/L [facility] Potassium 4.0 3.5 - 5.0 mmol/L [facility] Comment: Please note: ??Patients with WBC >100,000 may have falsely elevated Potassium levels. ??For accurate Potassium quantification in these patients send serum separator tube (gold top) for subsequent determinations. ??Contact the Clinical Chemistry Laboratory if there are any questions. Chloride 105 98 - 107 mmol/L [facility] Carbon Dioxide 20(L) 22 - 31 mmol/L [facility] Anion Gap 14 5 - 15 mmol/L [facility] Calcium 9.5 8.5 - 10.5 mg/dL [facility] Est Glomerular Filtration Rate 59(L) >=60 mL/min/1. 73 m?? [facility] Comment: This patient's estimated GFR was [...] Knight MD CHEMISTRY ORDERABLES Performing Organization Address [facility] Co de Phone Number [facility] [place] [address] * Magnesium (04/19/2023 2:40 AM EST) Magnesium 0.97 0.69 - 1.07 mmol/L [facility] Blood 04/19/2023 2:40 AM EST 04/19/2023 2:57 AM EST Narrative Resulting Agency Comment Spec In Lab Ailyn Knight MD CHEMISTRY ORDERABLES Performing Organization Address [facility] de Phone Number [facility] [place] [address] * CARDIAC CATHETERIZATION (04/18/2023 11:05 AM EST) Anatomical Region Laterality Modality Other Narrative 04/19/2023 6:57 AM EST ?[facility] ? Cardiac Catheterization/Intervention Report ? Patient Name: Neisha, Loida ? Procedure Date: 04/18/2023 ? A #: [id number] ? Primary Physician: Danilo, Dustin N ? Case #: [id number] ? File Name: [id number] ? Catheterization Order Number: [id number] ? [facility] ? Final Report [place], [place] ? Patient Name: ? Loida Neisha ? ID#: ?[id number] ? : ?1970 ? Procedure Date: ? April 18, 2023 ?Case #: ? [id number] ? Room: ? 6 ? Case Physician: [...] procedure was Urgent. The indication for ?the sleep lab technician visit is ACS greater than [...] Dustin Carrasco M.D. ? Electronically Signed by: Bradley FernandezD. ? Report Finalized: 04/18/2023 ??12:13 ? Report Last Ammended: 05/03/2023 ??07:49 ? Procedure Note Dustin Carrasco MD - 05/03/2023 [facility] Cardiac Catheterization/Intervention Report Patient Name: Loida Madrigal Procedure Date: 04/18/2023 A #: [id number] Primary Physician: Dustin Carrasco Case #: [id number] File Name: [id number] Catheterization Order Number: [id number] [facility] FinalReport [place], [place] Patient Name: Loida Madrigal ID#:[id number] :1970 Procedure Date: April 18, 2023 Case [...] patient was designated as ASA Class III. TheCSHA clinical frailty scale is 4: Vulnerable. Diagnostic [...] diagnostic procedure was Urgent. The indicationfor the sleep lab technician visit is ACS greater than [...] units of heparin were administered. A total [id number] of Omnipaque were opened, 65cc of Omnipaque were administered [id number] of Omnipaque were wasted. Radiation: Fluoro time [...] Heparin (unfractionated) Level (04/18/2023 8:23 AM EST) UF Heparin 0.39 IU/mL [facility] Comment: Heparin (anti-Xa) levels should be [...] Lab Terrence Maloney MD HEMATOLOGY ORDERABLE S [facility] [place] [address] * Differential, Automated (04/18/2023 2:10 AM EST) Neutrophil % 51.4 % [facility] Neutrophil Absolute 3.43 1.70 - 6.10 x10(3)/[facility] LABORATORY Lymph % 33.8 % [facility] Lymphocytes Abs 2.2 0.9 - 3.2 x10(3)/[facility] LABORATORY Monocyte % 9.9 % [facility] Monocyte Abs 0.7 0.3 - 0.9 x10(3)/[facility] LABORATORY Eos % 3.9 % [facility] Eosinophils Abs 0.3 0.0 - 0.4 x10(3)/[facility] LABORATORY Basophil % 0.8 % [facility] Baso Absolute 0.0 0.0 - 0.1 x10(3)/[facility] LABORATORY Immature Gran % 0.20 % [facility] Comment: Immature granulocytes(IG's)percentage and absolute count will include metamyelocytes, myelocytes, and promyelocytes. Blood smears from CBCs yielding IG's will be scanned manually for concordance. If this scan disagrees with the automated IG or if promyelocytes are noted, a manual differential will be performed. Immature Gran Absolute 0.01 0.00 - 0.04 x10(3)/[facility] LAB[facility] Blood 04/18/2023 2:10 AM EST 04/18/2023 2:44 AM EST Narrative Resulting Agency Comment Spec In Lab Terrence Maloney MD HEMATOLOGY ORDERABLE S Performing Organization Address City/State/[facility] Co de Phone Number [facility] [place] [address] * Hemogram (04/18/2023 2:10 AM EST) White Blood Cell 6.7 4.0 - 9.5 x10(3)/[facility] LABORATORY Red Blood Cell 4.93 4.00 - 5.21 x10(6)/[facility] LABORATORY Hemoglobin 15.2 11.7 - 15.5 g/dL [facility]ORATORY Hematocrit 44.9 35.7 - 45.8 % [facility] LABOR[facility]ORY Mean Cell Volume 91.1 82.6 - 94.4 fL [facility] Mean Cell Hemoglobin 30.8 27.1 - 32.0 pg [facility] Mean Cell Hemoglobin Concentration 33.9 31.7 - 35.0 g/dL [facility] LABORATORY Platelet 233 145 - 357 x10(3)/[facility] LABORATORY RDW Standard Deviation 42.0 37.0 - 46.0 fL [facility] LABORATORY RDW coefficient of variation 12.8 11.5 - 14.1 % [facility] Mean Platelet Volume 11.3 7.6 - 12.9 fL [facility] LAB[facility]AT[facility] NRBC% auto 0.0 % [facility] LABORAT[facility] NRBC Absolute 0.000 0.000 - 0.000 x10(3)/[facility] LABORATORY Blood 04/18/2023 2:10 AM EST 04/18/2023 2:44 AM EST Narrative Resulting Agency Comment Spec In Lab Terrence Maloney MD HEMATOLOGY ORDERABLE S Performing Organization Address [facility] [place] [address] * Heparin (unfractionated) Level (04/18/2023 2:10 AM EST) UF Heparin 0.50 IU/mL [facility]ORATORY Comment: Heparin (anti-Xa) levels should be [...] MD HEMATOLOGY ORDERABLE S Performing Organization Address [facility] Co de Phone Number [facility] [place] [address] * (ABNORMAL) BMP w/fasting Glucose (04/18/2023 2:10 AM EST) [facility] Signature Glucose Fasting 98 65 - 99 mg/dL [facility]ORATORY Comment: ?Fasting* Glucose Interpretive Criteria Normal [...] of Diabetes Mellitus, Position Statement from the [employer]. ??Diabetes Care, Volume 33, Supplement 1, Mar 2009 Blood Urea Nitrogen 23(H) 8 - 18 mg/dL [facility] Creatinine 1.18 0.70 - 1.20 mg/dL [facility] Sodium 143 135 - 145 mmol/L [facility] Potassium 3.6 3.5 - 5.0 mmol/L [facility]OR[facility]ORY Comment: Please note: ??Patients with WBC >100,000 may have falsely elevated Potassium levels. ??For accurate Potassium quantification in these patients send serum separator tube (gold top) for subsequent determinations. ??Contact the Clinical Chemistry Laboratory if there are any questions. Chloride 107 98 - 107 mmol/L [facility]ORATORY Carbon Dioxide 24 22 - 31 mmol/L [facility] Anion Gap 12 5 - 15 mmol/L [facility] Calcium 9.2 8.5 - 10.5 mg/dL [facility] Est Glomerular Filtration Rate 55(L) >=60 mL/min/1. 73 m?? [facility] Comment: This patient's estimated GFR was [...] Knight MD CHEMISTRY ORDERABLES Performing Organization Address [facility] Co de Phone Number [facility] [place] [address] * Magnesium (04/18/2023 2:10 AM EST) Magnesium 1.02 0.69 - 1.07 mmol/L [facility] Blood 04/18/2023 2:10 AM EST 04/18/2023 2:44 AM EST Narrative Resulting Agency Comment Spec In Lab Ailyn Knight MD CHEMISTRY ORDERABLES Performing Organization Address [facility] de Phone Number [facility] [place] [address] * LDL Cholesterol, Direct (04/18/2023 2:10 AM EST) LDL Cholesterol, Direct 105 mg/dL [facility] Comment: Lowest Risk: <100 mg/dL Lower Risk: 100-129 mg/dL Borderline High Risk: 130-159 mg/dL High Risk: 160-189 mg/dL Very High Risk: >kx=053 mg/dL Blood 04/18/2023 2:10 AM EST 04/18/2023 2:44 AM EST Narrative Resulting Agency Comment Spec In Lab Terrence Maloney MD CHEMISTRY ORDERABLES Performing Organization Address [facility] Co de Phone Number [facility] [place] [address] * Hemoglobin A1c (04/18/2023 2:10 AM EST) Hemoglobin A1c 5.6 4.3 - 5.6 % [facility] Comment: Reference Range: 4.3 - 5.6% [...] Mellitus, Diabetes Care 2013; 36: Suppl. 1, B71-79 Estimated Average Glucose 115 mg/dL [facility] Blood 04/18/2023 2:10 AM EST 04/18/2023 2:44 AM EST Narrative Resulting Agency Comment Spec In Lab Terrence Maloney MD CHEMISTRY ORDERABLES [facility] [place] [address] * Lipid Panel (Reflex Direct LDL) (04/18/2023 2:10 AM EST) Cholesterol, Total 173 mg/dL [facility] LABORATORY Comment: Lower Risk: <200 mg/dL Average Risk: 200-239 mg/dL Higher Risk: >kp=142 mg/dL Triglyceride 174 mg/dL [facility] Comment: Average Risk/Lower Risk: <150 mg/dL Borderline High Risk: 150-199 mg/dL High Risk: 200-499 mg/dL Very High Risk: >zk=065 mg/dL HDL Cholesterol 44 mg/dL [facility] Comment: Males: ?? Higher Risk: <40 mg/dL Females: ?? Higher Risk: <50 mg/dL LDL Cholesterol 94 mg/dL [facility] Comment: Lowest Risk: <100 mg/dL Lower Risk: 100-129 mg/dL Borderline High Risk: 130-159 mg/dL High Risk: 160-189 mg/dL Very High Risk: >wt=636 mg/dL Cholesterol/HDL Ratio 3.9 ratio [facility] Lipid Interpretation See Note [facility] Comment: Lipid management should be guided by a patient? s ASCVD risk, goals and preferences. ACC/AHA Guidelines recommend high intensity statin if clinical ASCVD or LDL greater than or equal to 190 mg/dL. http://tinyurl.com/SHF-USL-Lohyctwmx Adults aged 40-75 with LDL 70-189 mg/dL should have their 10 year ASCVD risk estimated with the ACC/AHA ASCVD risk skin grader http://tools.acc.org/HDFMY-Iqfs-Bjdptqtra/ Statin should be discussed if risk greater [...] Maloney MD CHEMISTRY ORDERABLES Performing Organization Address [facility]/ZIP Co de Phone Number [facility] [place] [address] * POCT Glucose (04/17/2023 7:44 PM EST) Glucose, POC 128 65 - 199 mg/dL [facility] Comment: Supplemental ranges: <140 mg/dL before meals <180 mg/dL all other times of the day Blood 04/17/2023 7:44 PM EST 04/17/2023 7:44 PM EST Ailyn Knight MD POINT OF CARE TEST O RDERABLES Performing Organization Address [facility] Co de Phone Number [facility] [place] [address] * (ABNORMAL) Heparin (unfractionated) Level (04/17/2023 6:01 PM EST) UF Heparin 1.14(Crit ical) IU/mL [facility] Comment: Critical Result called by ?? [...] MD HEMATOLOGY ORDERABLE S Performing Organization Address [facility] Co de Phone Number [facility] [place] [address] * (ABNORMAL) Heparin (unfractionated) Level (04/17/2023 12:45 PM EST) UF Heparin 1.39(Crit ical) IU/mL [facility] Comment: Critical Result called by ?? [facility] CRIT[facility] Results read back by: ? Marta [...] Lab Ailyn Knight MD HEMATOLOGY ORDERABLE S [facility] [place] [address] * ECHO LMTD W CONTRAST W LMTD SPEC DOPP COLOR DOPP (04/17/2023 11:59 AM EST) EF 58 [facility]ART[facility] SYSTEM Anatomical Region Laterality Modality Cardiac Other 04/17/2023 10:2 4 AM EST Narrative 04/17/2023 12:09 [place] [address] [place] [address] ? Echocardiogram Report Name: NEISHA, LOIDA ? Study Date: 04/17/2023 10:24 AMBP: 114/64 mmHg ? [facility] 1970 ? Height: 160 cm ? Account: [id number] Age: 53 yrs ? Weight: 98 kg Gender: Female ?BSA: 2.0 m2 Ordering Physician: TERRENCE MALONEY Referring Physician: TERRENCE MALONEY Performed By: HAIM Becerra Reason For Study: Chest pain; NSTEMI Exam Location: [facility]. Interpretation Summary Left ventricle is [...] wall motion has increased. Procedure Limited - 09796. Image enhancement Optison was used for left [...] moderate 5 - ? 6-14 ?large Aneurysmal ?16 ?? diffuse Procedure Note Jaspreet Kinsey MD - 04/17/2023 [address] [place] [id number] Echocardiogram Report Name: LOIDA MADRIGAL Study Date: 0:24 AMBP: 114/64 mmHg Patient Location: : 1970 Height: 160 cm Account: [id number] Age: 53 yrs Weight: 98 kg Gender: Female BSA: 2.0 m2 Ordering Physician: TERRENCE MALONEY Referring Physician: TERRENCE MALONEY Performed By: HAIM Becerra Reason For Study: Chest pain; NSTEMI Exam Location: [facility]. Interpretation Summary Left ventricle is normal in size and wall thickness. Normal globalsystolic function with regional wall motion abnormalities as ascribed on the anterior/anterolateral aspect. Right ventricle is normal in size and systolic function. No significant cardiac valve findings. No pericardial effusion. Compared to prior study dated 02/09/2023, the extent of the anteriorabnormal wall motion has increased. Procedure Limited - [id number]. Image enhancement Optison was used for left [...] Heparin (unfractionated) Level (04/17/2023 6:43 AM EST) UF Heparin 1.41(Crit ical) IU/mL [facility] Comment: Critical Result called by ?? [...] [facility]/ZIP Co de Phone Number [facility] [place] [address] * (ABNORMAL) Troponin (04/17/2023 6:43 AM EST) Troponin-T, High Sensitivity 23(H) <=14 ng/L [facility] Comment: This patient's troponin T concentration [...] can be found in the [facility] Laboratory Test Catalog Troponin - [facility] Laboratory Test Catalog Reference: Fourth [place] Definition of Myocardial Infarction. Journal of the [employer] 2018;72:5496-3752 Blood 04/17/2023 6:43 AM EST 04/17/2023 6:52 AM EST Narrative Resulting Agency Comment Spec In Lab Terrence Maloney MD CHEMISTRY ORDERABLES Performing Organization Address City/[facility]/ZIP Co de Phone Number [facility] [place] [address] * EKG 12 Lead (04/17/2023 3:41 AM EST) Ventricular rate 47 BPM MUSE SYSTEM Atrial Rate 47 BPM MUSE SYSTEM P-R Interval 186 ms MUSE SYSTEM QRS Duration 90 ms MUSE SYSTEM Q-T Interval 578 ms MUSE SYSTEM QTC Calculated (Bezet) 511 ms MUSE SYSTEM Calculated P [place] 24 degrees MUSE SYSTEM Calculated R [place] 23 degrees MUSE SYSTEM Calculated T [place] 27 degrees MUSE SYSTEM INTERPRETATION Sinus bradycardia with Premature atrial complexes Possible Left atrial enlargement Possible Lateral infarct , age undetermined Prolonged QT Abnormal ECG When compared with ECG of 01-APR-2023 12:28, Premature atrial complexes are now Present Vent. rate has decreased BY ??33 BPM Nonspecific T wave abnormality, improved in Anterior leads Confirmed by MD Petey, Kia ([id number]) on 04/20/2023 8:28:40 PM MUSE SYSTEM 04/17/2023 3:41 AM EST 04/20/2023 8:28 PM EST Terrence Maloney MD ECG ORDERABLES MUSE SYSTEM * Differential, Automated (04/17/2023 3:33 AM EST) Neutrophil % 54.4 % [facility] LAB[facility] Neutrophil Absolute 4.02 1.70 - 6.10 x10(3)/[facility] LABORATORY Lymph % 32.0 % [facility] LABORATORY Lymphocytes Abs 2.4 0.9 - 3.2 x10(3)/[facility] LABORATORY Monocyte % 8.7 % [facility] Monocyte Abs 0.6 0.3 - 0.9 x10(3)/[facility] LABORATORY Eos % 3.9 % [facility] LABORATORY Eosinophils Abs 0.3 0.0 - 0.4 x10(3)/[facility] LABORATORY Basophil % 0.7 % [facility] Baso Absolute 0.0 0.0 - 0.1 x10(3)/[facility] LABORATORY Immature Gran % 0.30 % [facility]AT[facility] Comment: Immature granulocytes(IG's)percentage and absolute count will include metamyelocytes, myelocytes, and promyelocytes. Blood smears from CBCs yielding IG's will be scanned manually for concordance. If this scan disagrees with the automated IG or if promyelocytes are noted, a manual differential will be performed. Immature Gran Absolute 0.02 0.00 - 0.04 x10(3)/[facility] LABORATORY Blood 04/17/2023 3:33 AM EST 04/17/2023 3:42 AM EST Narrative Resulting Agency Comment Spec In Lab Terrence Maloney MD HEMATOLOGY ORDERABLE S Performing Organization Address City/[facility] Co de Phone Number [facility] [place] [address] * Hemogram (04/17/2023 3:33 AM EST) White Blood Cell 7.4 4.0 - 9.5 x10(3)/[facility] LABORATORY Red Blood Cell 4.79 4.00 - 5.21 x10(6)/[facility] LABORATORY Hemoglobin 14.8 11.7 - 15.5 g/dL [facility] Hematocrit 44.3 35.7 - 45.8 % [facility] Mean Cell Volume 92.5 82.6 - 94.4 fL [facility] Mean Cell Hemoglobin 30.9 27.1 - 32.0 pg [facility] Mean Cell Hemoglobin Concentration 33.4 31.7 - 35.0 g/dL [facility]OR[facility] Platelet 233 145 - 357 x10(3)/[facility] LABORATORY RDW Standard Deviation 43.4 37.0 - 46.0 fL [facility]AT[facility] RDW coefficient of variation 12.7 11.5 - 14.1 % [facility] Mean Platelet Volume 11.0 7.6 - 12.9 fL [facility] NRBC% auto 0.0 % [facility] NRBC Absolute 0.000 0.000 - 0.000 x10(3)/[facility] LABORATORY Blood 04/17/2023 3:33 AM EST 04/17/2023 3:42 AM EST Narrative Resulting Agency Comment Spec In Lab Terrence Maloney MD HEMATOLOGY ORDERABLE S Performing Organization Address City/[facility]/ZIP Co de Phone Number [facility] [place] [address] * Sedimentation rate (04/17/2023 3:33 AM EST) Sedimentation Rate Automated 12 2 - 39 mm/hr [facility] Comment: Effective February 15, 2019 new [...] [facility]ZIP Co de Phone Number [facility] [place] [address] * CRP, acute inflammation (04/17/2023 3:33 AM EST) C-Reactive Protein <3.0 <=4.9 mg/L [facility] Blood 04/17/2023 3:33 AM EST 04/17/2023 3:42 AM EST Narrative Resulting Agency Comment Spec In Lab Terrence Maloney MD CHEMISTRY ORDERABLES Performing Organization Address [facility] Co de Phone Number [facility] [place] [address] * (ABNORMAL) Troponin (04/17/2023 3:33 AM EST) Troponin-T, High Sensitivity 24(H) <=14 ng/L [facility] Comment: This patient's troponin T concentration [...] can be found in the [facility] Laboratory Test Catalog Troponin - [facility] Laboratory Test Catalog Reference: Fourth [place] Definition of Myocardial Infarction. Journal of the [place] [employer] 2018;72:9534-9570 Blood 04/17/2023 3:33 AM EST 04/17/2023 3:42 AM EST Narrative Resulting Agency Comment Spec In Lab Terrence Maloney MD CHEMISTRY ORDERABLES Performing Organization Address [facility] Co de Phone Number [facility] [place] [address] * (ABNORMAL) APTT (04/17/2023 3:33 AM EST) Partial Thromboplastin Time 40(H) 25 - 37 sec [facility] Comment: The PTT is NOT appropriate for heparin monitoring. Use the Anti-Xa level for heparin monitoring (HEP UFH) or LMWH monitoring (HEP LMW). A PTT less than 37 seconds generally indicates adequate hemostasis. Blood 04/17/2023 3:33 AM EST 04/17/2023 3:42 AM EST Narrative Resulting Agency Comment Spec In Lab Terrence Maloney MD HEMATOLOGY ORDERABLE S Performing Organization Address City/[facility] Co de Phone Number [facility] [place] [address] * (ABNORMAL) Prothrombin Time (04/17/2023 3:33 AM EST) Prothrombin Time 13.3(H) 9.4 - 12.5 sec [facility] International Normalization Ratio 1.2 [facility] Comment: An INR <2.0 indicates adequate [...] [facility]ZIP Co de Phone Number [facility] [place] [address] * Hepatic Function Panel (04/17/2023 3:33 AM EST) Protein, Total 6.9 6.1 - 8.0 g/dL [facility] Albumin 4.2 3.2 - 5.2 g/dL [facility] Aspartate Aminotransferase Not Perf 0 - 30 [facility] Comment: Unable to quantitate due to sample hemolysis. ??Sample redraw suggested. Called by: Danny Bowles, Read back by: Nyla Cassidy, Date/Time:04/17/23 05:06. Alanine Aminotransferase 17 0 - 30 unit/L [facility] Alkaline Phosphatase 59 35 - 105 unit/L [facility] Bilirubin, Total 0.4 0.2 - 1.3 mg/dL [facility] Bilirubin, Direct 0.1 0.0 - 0.3 mg/dL [facility] Blood 04/17/2023 3:33 AM EST 04/17/2023 3:42 AM EST Narrative Resulting Agency Comment Spec In Lab Terrence Maloney MD CHEMISTRY ORDERABLES Performing Organization Address City/[facility]/ZIP Co de Phone Number [facility] [place] [address] * (ABNORMAL) pro-Brain Natriuretic Peptide (04/17/2023 3:33 AM EST) NT-proBNP 867(H) <=124 pg/mL [facility] Blood 04/17/2023 3:33 AM EST 04/17/2023 3:42 AM EST Narrative Resulting Agency Comment Spec In Lab Terrence Maloney MD CHEMISTRY ORDERABLES Performing Organization Address City/[facility]/ZIP Co de Phone Number [facility] [place] [address] * (ABNORMAL) TSH (04/17/2023 3:33 AM EST) Thyroid Stimulating Hormone 5.93(H) 0.27 - 4.20 mcIU/mL [facility] Comment: Reference Interval (mcIU/mL): Females: ??First Trimester: 0.23-3.88 ??Second Trimester: 0.22-3.90 ??Third Trimester: 0.44-4.66 Blood 04/17/2023 3:33 AM EST 04/17/2023 3:42 AM EST Narrative Resulting Agency Comment Spec In Lab Terrence Maloney MD CHEMISTRY ORDERABLES Performing Organization Address [facility] Co de Phone Number [facility] [place] [address] * Phosphorus (04/17/2023 3:33 AM EST) Phosphorus 4.1 2.5 - 4.5 mg/dL [facility] Blood 04/17/2023 3:33 AM EST 04/17/2023 3:42 AM EST Narrative Resulting Agency Comment Spec In Lab Terrence Maloney MD CHEMISTRY ORDERABLES Performing Organization Address [facility] Co de Phone Number [facility] [place] [address] * Magnesium (04/17/2023 3:33 AM EST) Magnesium 0.99 0.69 - 1.07 mmol/L [facility] Blood 04/17/2023 3:33 AM EST 04/17/2023 3:42 AM EST Narrative Resulting Agency Comment Spec In Lab Terrence Maloney MD CHEMISTRY ORDERABLES Performing Organization Address City/[facility]/ZIP Co de Phone Number [facility] [place] [address] * (ABNORMAL) Basic Metabolic Panel (non-fasting) (04/17/2023 3:33 AM EST) Glucose 89 65 - 199 mg/dL [facility] Comment:Diabetes: >=200 mg/d L plus symptoms Blood Urea Nitrogen 19(H) 8 - 18 mg/dL [facility] Creatinine 1.19 0.70 - 1.20 mg/dL [facility] Sodium 141 135 - 145 mmol/L [facility] Potassium 4.0 3.5 - 5.0 mmol/L [facility] Comment: Please note: ??Patients with WBC >100,000 may have falsely elevated Potassium levels. ??For accurate Potassium quantification in these patients send serum separator tube (gold top) for subsequent determinations. ??Contact the Clinical Chemistry Laboratory if there are any questions. Chloride 106 98 - 107 mmol/L [facility] Carbon Dioxide 22 22 - 31 mmol/L [facility] Anion Gap 13 5 - 15 mmol/L [facility] Calcium 9.4 8.5 - 10.5 mg/dL [facility] Est Glomerular Filtration Rate 54(L) >=60 mL/min/1. 73 m?? [facility] Comment: This patient's estimated GFR was [...] In Lab Terrence Maloney MD CHEMISTRY ORDERABLES [facility] [place] [address] * Film Library- Storage Only CT Chest [...] Oral, 2 TIMES DAILY, First dose on Wed04/17/23 [...] 161 (Given - Provider: Chilo Nickerson RN) 173 (Given - Provider: Charity Jackson RN) 1700 [...] Discontinued, Routine 0830 (Given - Provider: Chilo Nickerson, ERWIN) 0812 (Given - Provider: Charity Jackson, ERWIN) [...] 04/19/23 at 0951, Until Aura 04/22/23 at 195, Pain, Maximum dose of acetaminophen is 4,000 [...] documented as of this encounter Care Teams Mental Health Technician Relationship Specialty Start Date End Date Polo Pearce PA Sb [address] [place] [address] PCP - General Internal Medicine 06/09/21 documented as of this encounter
--- OUTSIDE RECORDS SUMMARY | 2023-10-20 19:56 | XMS_ITS | Encounter Summary ---
Author Organization Formerly [facility] Address [facility] [place] [address] Care Team Providers Care Hourly Team Members Name Role Phone Polo Pearce Primary Care Provider [phone] Encounter Details Date Type Department Care Team (Latest Contact Info) Description 04/30/2023 Travel Social History Tobacco Use Types Packs/Day Years Used Date Smoking Tobacco: Never Smokeless Tobacco: Never Alcohol Use Standard Drinks/Week Comments Never 0 (1 standard drink = 0.6 oz pur e alcohol) [facility] Utilities Answer Date Recorded In [...] slept in a custodial (including now)? No 04/19/2023 DH IPV Inpatient [...] AM EDT Hospital Encounter [place] [address] Mary Reyes DIRECTOR OF LEADERSHIP DEVELOPMENT [facility] [address] 10/21/2023 11:30 AM EDT Appointment [place] [phone] Mary Re[place] [address] 10/21/2023 12:30 PM EDT Appointment [place] [address] Mary Reyes DIRECTOR OF LEADERSHIP DEVELOPMENT [facility] [address] 10/21/2023 1:30 PM EDT Appointment [place] [phone] Mary Reyes DIRECTOR OF LEADERSHIP DEVELOPMENT [facility] [address] 10/21/2023 2:30 PM EDT Appointment [place] [phone] Mary Reyes DIRECTOR OF LEADERSHIP DEVELOPMENT [facility] [address] 10/26/2023 4:00 PM EDT Office Visit Cardiology at [address] [phone] Jaspreet Kinsey MD [facility] [place] [address] 10/28/2023 9:00 AM EDT Office [place] [address] 10/29/2023 10:00 AM EDT Clinical [place] [address] 10/29/2023 10:15 AM EDT Procedure [place] [address] 11/01/2023 5:00 PM EDT Office Visit [place] [phone] Selene Browning, PhD [facility] [place] [address] 11/22/2023 4:40 PM EDT Office Visit Cardiology at [address] [phone] Porsha Mcdaniels MD [facility] [address] 12/13/2023 10:00 AM EDT Clinical Support [place] [address] Lucero Romero, ALVA [facility] [place] [address] documented as of this encounter Visit Diagnoses Not on filedocumented in this encounter Care Teams Hourly Team Members Relationship Specialty Start Date End Date Polo Pearce PA [facility] [address] [place] [address] PCP - General Internal Medicine 06/09/21 documented as of this encounter
[2023-10-20 19:57] LABS: Calcium 9.5 mg/dL (8.5-10.1)
--- OUTSIDE RECORDS SUMMARY | 2023-10-20 19:57 | XMS_ITS | Encounter Summary ---
[place] [address] Care Team Providers Care Rendering Equipment Tender Name Role Phone Polo Pearce Primary Care Provider [phone] Reason for Visit * Auth/Cert (Routine) Specialty [...] THER/DX INTERVENT ELECTROPHYSIOLOGY PROCEDURE Jed Tovar MD [facility] [place] [address] [facility] Referral ID Status Reason Start Date Expiration Date Visits Re quested Visits Authorized [id number] 1 1 Encounter Details Date Type Department Care Team (Late st Contact Info) Description 04/01/2023 7:30 AM EST - 04/01/2023 12:00 PM EST Surgery [place] [address] Jed Tovar MD [facility] [place] [address] ELECTROPHYSIOLOGY PROCEDURE Social History Tobacco Use Types Packs/Day Years Used Date Smoking Tobacco: Never Smokeless Tobacco: Never Alcohol Use Standard Drinks/Week Comments Never 0 (1 standard drink = 0.6 oz pur e alcohol) [facility] Utilities Answer Date Recorded [...] Indira Roque Patient Age: 53 y.o. Language: Greek Race: White Ethnicity: Not [...] Cardiac Electrophysiology - Weekends and holidays call [phone]; ask for psychic reader digital content marketing manager. Discharge Diagnoses (Hospital Problems) and Secondary Diagnoses [...] 06/13/2021 in the context of hospitalization at [facility] for NSTEMI. A rapidly conducted [...] days. Refills: 0 fluticasone propionate 50 mcg/actuation [place], Suspension Commonly known as: Flonase 1 spray [...] 3:00 PM Jaspreet Kinsey MD Cardiology at [place] Arrive at: [facility] [address] [phone] Discharge References/Attachments None documented in this encounter [...] as needed. fluticasone propionate (FLONASE) 50 mcg/actuation [place], Suspension 1 spray by Each Nare route [...] PRE-PROCEDURE H&P Referring Provider: Jaspreet Kinsey MD [facility] [place] [address] Attending Provider: eJd Tovar MD Planned Procedure: EP study and SVT ablation Background and rationale for the procedure: Indira Roque is a 53 y.o. woman with paroxysmal atrial fibrillation, heart failure with preserved EF, and chronic angina with non-obstructive ASCVD but significant calcifications per coronary CTA. She has documented sustained narrow complex tachycardia on 06/13/2021 in the context of hospitalization at [facility] for NSTEMI. A rapidly conducted [...] as needed. fluticasone propionate (FLONASE) 50 mcg/actuation [place], Suspension 1 spray by Each Nare route [...] in agreement. Dr. Jed Tovar, electrophysiology attending ([id number]) documented in this encounter Procedure Notes * [...] jittery Break coverage by Luiza Peña RN [phone]. PACU D/C criteria met at 1300 1345 Hand off to ERWIN Gomez SDP documented in this encounter Miscellaneous Notes * Brief Op Note - Jed Tovar MD - 04/01/2023 11:07 AM EST Brief Operative Note Patient Name: Indira Roque : [id number] MR#: [id number] Case Date: 04/01/2023 Surgeon: Surgeon(s) and Role: [...] AM EDT Hospital Encounter [place] [address] [place] [address] 10/21/2023 11:30 AM EDT Appointment [place] [address] [place] [address] 10/21/2023 12:30 PM EDT Appointment [place] [address] [place] [address] 10/21/2023 1:30 PM EDT Appointment [place] [address] CalvMary mazariegos APRN [facility] [place] [address] 10/21/2023 2:30 PM EDT Appointment Nuclear Medicine at [place] [phone] Mary Reyes FEEDER/FOLDER [facility] [place] [address] 10/26/2023 4:00 PM EDT Office Visit Cardiology at [address] [phone] Jaspreet Kinsey MD [facility] [place] [address] 10/28/2023 9:00 AM EDT Office Visit [place] [address] 10/29/2023 10:00 AM EDT Clinical Support [place] [address] 10/29/2023 10:15 AM EDT Procedure visit [place] [address] 11/01/2023 5:00 PM EDT Office Visit Gastroenterology at [place] [phone] Selene Browning, PhD [facility] PS[place] [address] 11/22/2023 4:40 PM EDT Office Visit Cardiology at [address] [phone] Porsha Mcdaniels MD [facility] [place] [address] 12/13/2023 10:00 AM EDT Clinical Support [place] [address] Lucero Romero, ALVA [facility] [place] [address] documented as of this encounter Procedures Procedure [...] DIFFERENTIAL, AUTOMATED STAT 04/01/19 7:20 AM EST CBC (WITH DIFF) STAT 04/01/2023 7:20 AM EST documented in this encounter Results * EKG 12 Lead (04/01/2023 12:28 PM EST) Ventricular rate 80 BPM MUSE SYSTEM Atrial Rate 80 BPM MUSE SYSTEM P-R Interval 182 ms MUSE SYSTEM QRS Duration 88 ms MUSE SYSTEM Q-T Interval 450 ms MUSE SYSTEM QTC Calculated (Bezet) 519 ms MUSE SYSTEM Calculated P Dell 44 degrees MUSE SYSTEM Calculated R Dell 41 degrees MUSE SYSTEM Calculated T Dell 36 degrees MUSE SYSTEM INTERPRETATION Normal sinus [...] not included. ELECTROPHYSIOLOGY STUDY AND SVT ABLATION Tugboat Dispatcher: Jed Tovar MD Fellow: Jaspreet Grimm MD Referring: Jaspreet Kinsey MD Patient History: Indira Roque is a 53 y.o. woman with one episode of paroxysmal atrial fibrillation, heart failure with preserved EF, and chronic angina with non-obstructive ASCVD but significant calcifications per coronary CTA. She has documented sustained narrow complex tachycardia on 06/13/2021 in the context of hospitalization at [facility] for NSTEMI. A rapidly conducted [...] Intervals (ms) Interval Name Interval length (milliseconds) CT 260 QRS 97 QT 531 AH 159 HV 47 Refractory Periods Atrial ERP 700/300 AV Makayla Conduction AV Wenckebach 360 ms Retrograde Wenckebach 470 ms Medication Summary (drug, amount, route) Isoproterenol at 2-4 mcg/kg/min Radiology Summary Total Fluoro time (min) 1.4 DAP (cGycm2) 53 Findings: 1. The baseline EKG revealed sinus rhythm with prolonged CT and long AH, but otherwise normal intervals [...] with Dr. Tovar in 1-3 ??months at [facility] 5. 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 Procedures performed: SVT ablation (cpt 64535); induce post IV drug (cpt 68472-17-56) I have read, edited and approve of [...] (Bezet) 522 ms MUSE SYSTEM Calculated P Dell 50 degrees MUSE SYSTEM Calculated R Dell 69 degrees MUSE SYSTEM Calculated T Dell 16 degrees MUSE SYSTEM INTERPRETATION Sinus bradycardia Lateral infarct , age undetermined Prolonged QT Abnormal ECG When compared with ECG of 22-MAR-2023 16:45, (unconfirmed) T wave inversion no longer evident in Anterior leads QT has lengthened I personally reviewed the tracing and edited the fellows interpretation Confirmed by fellow MD Nas, Max ([id number]) on 04/01/2023 3:35:42 PM Confirmed by MD NAILA, KAUSHIK ([id number]) on 04/02/2023 8:28:26 AM MUSE SYSTEM 04/01/2023 7:31 AM EST 04/02/2023 8:28 AM EST Jed Tovar MD ECG ORDERABLES MUSE SYSTEM * Differential, Automated (04/01/2023 7:20 AM EST) Neutrophil % 53.2 % [facility] Neutrophil Absolute 3.51 1.70 - 6.10 x10(3)/[facility] LABORATORY Lymph % 32.4 % [facility] Lymphocytes Abs 2.1 0.9 - 3.2 x10(3)/[facility] LAB[facility] Monocyte % 8.7 % [facility] Monocyte Abs 0.6 0.3 - 0.9 x10(3)/[facility] Eos % 4.6 % [facility] Eosinophils Abs 0.3 0.0 - 0.4 x10(3)/[facility] LAB[facility] Basophil % 0.8 % [facility] Baso Absolute 0.0 0.0 - 0.1 x10(3)/[facility] LAB[facility] Immature Gran % 0.30 % [facility] Comment: Immature granulocytes(IG's)percentage and absolute count will include metamyelocytes, myelocytes, and promyelocytes. Blood smears from CBCs yielding IG's will be scanned manually for concordance. If this scan disagrees with the automated IG or if promyelocytes are noted, a manual differential will be performed. Immature Gran Absolute 0.02 0.00 - 0.04 x10(3)/[facility] LAB[facility]AT[facility] Blood 04/01/2023 7:20 AM EST 04/01/2023 7:33 AM EST Narrative Resulting Agency Comment Spec In Lab Jed Tovar MD HEMATOLOGY ORDERABLE S [facility] [place] [address] * (ABNORMAL) Hemogram (04/01/2023 7:20 AM EST) White Blood Cell 6.6 4.0 - 9.5 x10(3)/mc L [facility] Red Blood Cell 4.56 4.00 - 5.21 x10(6)/mc L [facility] Hemoglobin 14.1 11.7 - 15.5 g/dL [facility] Hematocrit 43.1 35.7 - 45.8 % [facility] Mean Cell Volume 94.5(H) 82.6 - 94.4 fL [facility] Mean Cell Hemoglobin 30.9 27.1 - 32.0 pg [facility] Mean Cell Hemoglobin Concentration 32.7 31.7 - 35.0 g/dL [facility] Platelet 229 145 - 357 x10(3)/mc L [facility] RDW Standard Deviation 44.7 37.0 - 46.0 fL [facility] RDW coefficient of variation 12.7 11.5 - 14.1 % [facility] Mean Platelet Volume 11.7 7.6 - 12.9 fL [facility] NRBC% auto 0.0 % [facility] NRBC Absolute 0.000 0.000 - 0.000 x10(3)/ L [facility] Blood 04/01/2023 7:20 AM EST 04/01/2023 7:33 AM EST Narrative Resulting Agency Comment Spec In Lab Jed Tovar MD HEMATOLOGY ORDERABLE S [facility] [place] [address] * (ABNORMAL) BMP w/fasting Glucose (04/01/2023 7:20 AM EST) Glucose Fasting 99 65 - 99 mg/dL [facility] Comment: ?Fasting* Glucose Interpretive [...] Urea Nitrogen 22(H) 8 - 18 mg/dL [facility] Creatinine 1.10 0.70 - 1.20 mg/dL [facility] Sodium 139 135 - 145 mmol/L [facility] Potassium 4.2 3.5 - 5.0 mmol/L [facility] Comment: Please note: ??Patients with WBC >100,000 may have falsely elevated Potassium levels. ??For accurate Potassium quantification in these patients send serum separator tube (gold top) for subsequent determinations. ??Contact the Clinical Chemistry Laboratory if there are any questions. Chloride 108(H) 98 - 107 mmol/L [facility] Carbon Dioxide 22 22 - 31 mmol/L [facility] Anion Gap 9 5 - 15 mmol/L [facility] Calcium 9.6 8.5 - 10.5 mg/dL [facility] Est Glomerular Filtration Rate 60 >=60 mL/min/1. 73 m?? [facility] Comment: This patient's estimated [...] In Lab Jed Tovar MD CHEMISTRY ORDERABLES [facility] [place] [id number] documented in this encounter Visit Diagnoses Diagnosis [...] Day of Surgery (Day of Procedure), Routine 07 (Given - Provid er: Patricia Singer RN) [...] Routine documented in this encounter Care Teams Rendering Equipment Tender Relationship Specialty Start Date End Date Polo Pearce PA [address] [place] [address] PCP - General Internal Medicine 06/09/21 documented as of this encounter
--- OUTSIDE RECORDS SUMMARY | 2023-10-20 19:57 | XMS_ITS | Encounter Summary ---
Author Organization [place] [address] Care Team Providers Care Desizing Machine Operator Head End Name Role Phone Polo Pearce Primary Care Provider [phone] Reason for Referral * Consultation (Routine) - Closed Specialty Diagnoses / Procedures Referred By Jayant harris Referred To Contact Cardiology Diagnoses Non-ST elevation myocardial infarction (NSTEMI) Itz Bhardwaj MD [facility] [address] Cardiac Rehab, [address] [place] [address] Referral ID Status Reason Start Date Expiration Date V isits Requested Visits Authorized [id number] Closed Consult, Test & Treat Non PCP 02/18/2023 08/17/2023 36 36 Encounter Details Date Type Department Care Team (Late st Contact Info) Description 02/18/2023 [place] [phone] Jazmin Levine RN Non-ST elevation myocardial infarction (NSTEMI) Social History Tobacco Use Types Packs/Day Years Used Date Smoking Tobacco: Never Smokeless Tobacco: Never Alcohol Use Standard Drinks/Week Comments Never 0 (1 standard drink = 0.6 oz pur e alcohol) [facility] Utilities Answer Date Recorded In [...] AM EDT Hospital En[place] [address] Mary Reyes APRN [facility] [place] [address] 10/21/2023 11:30 AM EDT Appointment [place] [phone] Mary Reyes APRN [facility] [place] [address] 10/21/2023 12:30 PM EDT Appointment [place] [address] [place] [address] 10/21/2023 1:30 PM EDT Appointment [place] [address] [place] [address] 10/21/2023 2:30 PM EDT Appointment [place] [address] Mary Reyes [facility] [place] [address] 10/26/2023 4:00 PM EDT Office Visit Cardiology at [address] [phone] Jaspreet Kinsey MD [facility] [place] [address] 10/28/2023 9:00 AM EDT Office [place] [address] 10/29/2023 10:00 AM EDT Clinical [place] [address] 10/29/2023 10:15 AM EDT Procedure [place] [address] 11/01/2023 5:00 PM EDT Office Visit [place] [phone] Selene Browning, PhD [facility] [place] [address] 11/22/2023 4:40 PM EDT Office Visit Cardiology at [address] [phone] Porsha Mcdaniels MD [facility] [place] [address] 12/13/2023 10:00 AM EDT Clinical Support Gastroenterology at [address] Lucero Romero, RD [facility] [place] [address] Scheduled Referrals Name Type Priority Associated Diagnoses Orde r Schedule Referral to Cardiac Rehab Outpatient Referral Routine Non-ST elevation myocardial infarction (NSTEMI) Ordered: 02/18/2023 documented as of this encounter Visit Diagnoses Diagnosis Non-ST elevation myocardial infarction (NSTEMI) Acute myocardial infarction, subendocardial infarction, episode of care unspecified documented in this encounter Care Teams Desizing Machine Operator Head End Relationship Specialty Start Date End Date Polo Pearce PA [address] [place] [address] PCP - General Internal Medicine 06/09/21 documented as of this encounter
--- OUTSIDE RECORDS SUMMARY | 2023-10-20 19:57 | XMS_ITS | Encounter Summary ---
Author Organization [facility] [place] [address] Care Team Providers Care Cytogenetic Technician Name Role Phone Polo Pearce Primary Care Provider [phone] Encounter Details Date Type Department Care Team (Late st Contact Info) Description 04/16/2023 Telephone Cardiology at [address] [address] Vaishnavi Pratt MD [facility] [place] [address] Social History Tobacco Use Types Packs/Day Years Used Date Smoking Tobacco: Never Smokeless Tobacco: Never Alcohol Use Standard Drinks/Week Comments Never 0 (1 standard drink = 0.6 oz pur e alcohol) [facility] Utilities Answer Date Recorded In the past 12 months has [employer], gas, oil, or water [employer] threatened to shut off services in your [...] in a fci (including now)? No 02/10/2023 IPV Inpatient Questions [...] Date: 04/16/23 Referring Provider: Jaylon Patient Location: [facility] HPI: 53 y.o. 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 Preceding this, she has documented sustained narrow complex tachycardia on 06/13/2021 in the context of hospitalization at [facility] for NSTEMI. 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 So she was transferred to [place] for EPS and ablation. She now presents to [facility] with chest discomfortthat started overnight. Upon [...] that was done by the on-call overnight detective youth bureau, there is no significant change in biventricular [...] in the patient condition. Vaishnavi Pratt MD Trimmer Helper documented in this encounter Plan of Treatment Upcoming Encounters Date Type Department Care Team (Late st Contact Info) Description 10/21/2023 10:30 AM EDT Hospital Encounter [place] [address] [place] [address] 10/21/2023 11:30 AM EDT Appointment [place] [phone] [place] [address] 10/21/2023 12:30 PM EDT Appointment [place] [address] Mary Reyes [facility] [place] [address] 10/21/2023 1:30 PM EDT Appointment [place] [phone] Mary Reyes [facility] [place] [address] 10/21/2023 2:30 PM EDT Appointment [place] [address] Mary Reyes APRN [facility] [place] [address] 10/26/2023 4:00 PM EDT Office Visit Cardiology at [address] [phone] Jaspreet Kinsey MD [facility] [place] [address] 10/28/2023 9:00 AM EDT Office [place] [address] 10/29/2023 10:00 AM EDT Clinical [place] [address] 10/29/2023 10:15 AM EDT Procedure [place] [address] 11/01/2023 5:00 PM EDT Office Visit Gastroenterology at [place] [phone] Selene Browning, PhD [facility] [place] [address] 11/22/2023 4:40 PM EDT Office Visit Cardiology at [address] [address] Porsha Mcdaniels MD [facility] [place] [address] 12/13/2023 10:00 AM EDT Clinical Support [place] [phone] [facility] [place] [place] [address] documented as of this encounter Visit Diagnoses Not on filedocumented in this encounter Care Teams Cytogenetic Technician Relationship Specialty Start Date End Date Polo Pearce PA [address] [place] [address] PCP - General Internal Medicine 06/09/21 documented as of this encounter
--- OUTSIDE RECORDS SUMMARY | 2023-10-20 19:57 | XMS_ITS | Encounter Summary ---
[place] [address] Care Team Providers Care Half Backer Name Role Phone Polo Pearce Primary Care Provider [phone] Encounter Details Date Type Department Care Team (Late st Contact Info) Description 04/16/2023 Ancillary Procedure [place] [address] Social History Tobacco Use Types Packs/Day Years [...] AM EDT Hospital Encounter [place] [address] [place] [address] 10/21/2023 11:30 AM EDT Appointment [place] [address] Mary Reyes GATE PERSON [facility] [place] [address] 10/21/2023 12:30 PM EDT Appointment [place] [address] Mary Reyes G[employer] PERSON [facility] [place] [address] 10/21/2023 1:30 PM EDT Appointment [place] [address] Mary Reyes APRN [facility] [place] [address] 10/21/2023 2:30 PM EDT Appointment [place] [address] Mary Reyes APRN [facility] [place] [address] 10/26/2023 4:00 PM EDT Office Visit Cardiology at [address] [phone] Jaspreet Kinsey MD [facility] [place] [address] 10/28/2023 9:00 AM EDT Office [place] [address] 10/29/2023 10:00 AM EDT Clinical [place] [address] 10/29/2023 10:15 AM EDT Procedure [place] [address] 11/01/2023 5:00 PM EDT Office [place] [address] Selene Browning, PhD [facility] [place] [address] 11/22/2023 4:40 PM EDT Office Visit Cardiology at [address] [phone] Porsha Mcdaniels MD [facility] [place] [address] 12/13/2023 10:00 AM EDT Clinical Support [place] [address] Lucero Romero, ALVA [facility] [place] [address] documented as of this encounter Procedures Procedure [...] on filedocumented in this encounter Care Teams Half Backer Relationship Specialty Start Date End Date Polo Pearce PA [address] [place] [address] PCP - General Internal Medicine 06/09/21 documented as of this encounter
--- OUTSIDE RECORDS SUMMARY | 2023-10-20 19:57 | XMS_ITS | Encounter Summary ---
Author Organization [facility] Address [facility] [place] [address] Care Team Providers Care Protective Officer Name Role Phone Polo Pearce Primary Care Provider [phone] Encounter Details Date Type Department Care Team [...] AM EDT Hospital Encounter [place] [phone] [place] [address] 10/21/2023 11:30 AM EDT Appointment [place] [address] [place] [address] 10/21/2023 12:30 PM EDT Appointment [place] [address] [place] [address] 10/21/2023 1:30 PM EDT Appointment [place] [phone] [place] [address] 10/21/2023 2:30 PM EDT Appointment [place] [phone] Mary Reyes APRN [facility] [place] [address] 10/26/2023 4:00 PM EDT Office Visit Cardiology at [address] [phone] Jaspreet Kinsey MD [facility] [place] [address] 10/28/2023 9:00 AM EDT Office [place] [address] 10/29/2023 10:00 AM EDT Clinical [place] [address] 10/29/2023 10:15 AM EDT Procedure [place] [address] 11/01/2023 5:00 PM EDT Office [place] [phone] Selene Browning, PhD [facility] [place] [address] 11/22/2023 4:40 PM EDT Office Visit Cardiology at [address] [phone] Porsha Mcdaniels MD [facility] [place] [address] 12/13/2023 10:00 AM EDT Clinical [place] [phone] [facility] [place] [address] documented as of this encounter Visit Diagnoses Not on filedocumented in this encounter Care Teams Protective Officer Relationship Specialty Start Date End Date Polo Pearce PA [address] [facility] 1 [place] [address] PCP - General Internal Medicine 06/09/21 documented as of this encounter
--- OUTSIDE RECORDS SUMMARY | 2023-10-20 19:57 | XMS_ITS | Encounter Summary ---
Author Organization [facility] Address [facility] [place] [address] Care Team Providers Care Rn Community Health Name Role Phone Polo Pearce Primary Care Provider [phone] Encounter Details Date Type Department Care Team (Late st Contact Info) Description 02/16/2023 11:20 AM EST Office Visit Cardiology at [address] [address] Jed Tovar MD [facility] [place] [address] PAF (paroxysmal atrial fibrillation); SVT (supraventricular tachycardia) Social History Tobacco Use Types Packs/Day Years Used Date Smoking Tobacco: Never Smokeless Tobacco: Never Alcohol Use Standard Drinks/Week Comments Never 0 (1 standard drink = 0.6 oz pur e alcohol) [facility] Utilities Answer Date Recorded In the past 12 months has e electric, gas, oil, or water [employer] threatened to shut off services in your [...] Follow Up Patient ID Indira Roque [id number] Indira Roque is following up in EP [...] on eliquis 08/2022 TTE ([facility]): normal bi-v s/f. 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 Started on toprol Obesity Dyslipidemia Obstructive sleep apnea syndrome Insomnia (HFpEF) heart failure with preserved ejection fraction 05/2021: subacute, presented to [facility] with RUQ pain, weight gain, and progressive [...] as needed. 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 I have personally reviewed all [...] AM EDT Hospital Encounter [place] [address] [place] [address] 10/21/2023 11:30 AM EDT Appointment [place] [address] Mary Reyes [facility] [place] [address] 10/21/2023 12:30 PM EDT Appointment [place] [phone] Mary Reyes [facility] [place] [address] 10/21/2023 1:30 PM EDT Appointment [place] [address] Mary Reyes [facility] [place] [address] 10/21/2023 2:30 PM EDT Appointment [place] [address] [place] [address] 10/26/2023 4:00 PM EDT Office Visit Cardiology at [address] [address] Jaspreet Kinsey MD [facility] [place] [address] 10/28/2023 9:00 AM EDT Office [place] [address] 10/29/2023 10:00 AM EDT Clinical Support [place] [address] 10/29/2023 10:15 AM EDT Procedure [place] [address] 11/01/2023 5:00 PM EDT Office Visit [place] [address] Selene Browning, PhD [facility] [place] [address] 11/22/2023 4:40 PM EDT Office Visit Cardiology at [address] [phone] Porsha Mcdaniels MD [facility] [place] [address] 12/13/2023 10:00 AM EDT Clinical Support [place] [address] [facility] [place] [address] documented as of this encounter Procedures Procedure [...] (Bezet) 511 ms MUSE SYSTEM Calculated P Linden 24 degrees MUSE SYSTEM Calculated R [place] 35 degrees MUSE SYSTEM Calculated T Lind[place] 14 degrees MUSE SYSTEM INTERPRETATION Sinus bradycardia Possible Lateral infarct (cited on or before 08-FEB-2023) Prolonged QT Abnormal ECG When compared with ECG of 11-FEB-2023 06:07, QT has lengthened Confirmed by MD Hans, Porsha ([id number]) on 02/16/2023 2:07:10 PM MUSE SYSTEM 02/16/2023 11:3 7 AM EST 02/16/2023 2:07 PM EST Unknown ECG ORDERABLES MUSE SYSTEM documented in this encounter Visit Diagnoses Diagnosis PAF (paroxysmal atrial fibrillation) Atrial fibrillation SVT (supraventricular tachycardia) Other specified cardiac dysrhythmias documented in this encounter Care Teams Rn Community Health Relationship Specialty Start Date End Date Polo Pearce PA [address] [place] [address] PCP - General Internal Medicine 06/09/21 documented as of this encounter
--- OUTSIDE RECORDS SUMMARY | 2023-10-20 19:57 | XMS_ITS | Encounter Summary ---
Author Organization [facility] [place] [address] Care Team Providers Care Naval Surface Fire Support Planner Name Role Phone Polo Pearce Primary Care Provider [phone] Reason for Visit * Reason Onset Date Comments Pre Procedure Call 03/16/2023 Encounter Details Date Type Department Care Team (Late st Contact Info) Description 03/16/2023 Telephone Cardiology at [address] [phone] Mary Motta, RN Pre Procedure Call Social History Tobacco Use Types Packs/Day Years Used Date Smoking Tobacco: Never Smokeless Tobacco: Never Alcohol Use Standard Drinks/Week Comments Never 0 (1 standard drink = 0.6 oz pur e alcohol) [facility] Utilities Answer Date Recorded In the past 12 months has e [employer], gas, oil, or water [employer] threatened to shut off services in [...] ESTSummary: Pre Procedure Call: SVT Ablation EP HVAC MECHANIC COORDINATION CHECKLIST Patient Name: Indira Roque Patient Performing Die Repairer Stamping: Jed Tovar Referring Provider: Jaspreet Kinsey Date of Procedure: 04/01/23 Arrival Time/ Case Time: 6:00 am / 7:30 am Check In Location: Ergonomics Technician Desk 4W Date Patient was Called: 04/01/23 Procedure: SVT Ablation Company: [employer] Type: RF Orders: Yes Lab Orders: Yes [...] overnight , understands that they will need inventory associate and driver on day of discharge Notified pt that Esqueda catheter may be placed on day of procedure depending on type & duration of case. documented in this encounter Plan of Treatment Upcoming Encounters Date Type Department Care Team (Late st Contact Info) Description 10/21/2023 10:30 AM EDT Hospital Encounter [place] [phone] [place] [address] 10/21/2023 11:30 AM EDT Appointment [place] [address]1000 [place] [address] 10/21/2023 12:30 PM EDT Appointment [place] [address]1000 [place] [address] 10/21/2023 1:30 PM EDT Appointment [place] [address] [place] [address] 10/21/2023 2:30 PM EDT Appointment [place] [address] [place] [address] 10/26/2023 4:00 PM EDT Office Visit Cardiology at [address] [place] [address] Jaspreet Kinsey MD [facility] [place] [address] 10/28/2023 9:00 AM EDT Office [place] [address] 10/29/2023 10:00 AM EDT Clinical [place] [address] 10/29/2023 10:15 AM EDT Procedure [place] [address] 11/01/2023 5:00 PM EDT Office Visit [place] [address] Selene Browning, PhD [facility] [place] [address] 11/22/2023 4:40 PM EDT Office Visit Cardiology at [address] [phone] Porsha Mcdaniels MD [facility] [place] [address] 12/13/2023 10:00 AM EDT Clinical Support [place] [address] [facility] [place] [address] documented as of this encounter Visit Diagnoses Not on filedocumented in this encounter Care Teams Naval Surface Fire Support Planner Relationship Specialty Start Date End Date Polo Pearce PA [facility] [address] [place] [address] PCP - General Internal Medicine 06/09/21 documented as of this encounter
--- OUTSIDE RECORDS SUMMARY | 2023-10-20 19:57 | XMS_ITS | Encounter Summary ---
[place] [address] Care Team Providers Care Digital Asset Manager Name Role Phone Polo Pearce Primary Care Provider [phone] Reason for Visit * Auth/Cert (Routine) Specialty [...] THER/DX INTERVENT ELECTROPHYSIOLOGY PROCEDURE Jed Tovar MD [facility] [address] [facility] Referral ID Status Reason Start Date Expiration Date Visits Re quested Visits Authorized [id number] 1 1 Encounter Details Date Type Department Care Team (Late st Contact Info) Description 04/01/2023 7:39 AM EST Anesthesia Event [place]rophys[place] [phone] Merlin Lozoya MD [facility] [place] [address] Anesthesia Record Procedure Summary Procedure [...] Removal Time: 11104/01/23 0750 by Jaspreet Perry, BUZZLE BUFFER 04/01/23 1119 by Merlin Lozoya MD PIV 04/01/23; 0754; 18 gauge; dorsal arch vein (top of hand), right; Anatomical Landmarks; tanja; no longer indicated; 04/01/23; 1551 04/01/23 0754 by Jaspreet Perry, BUZZLE BUFFER 04/01/23 1551 by Gianna Bland RN LDA Cath/EP Sheath 04/01/23; 0823; 6.5 Russian (Fr); Left, Anterior; Femoral; Venous 04/01/23 0823 by Mary Herman RN 04/01/23 1056 by Mary Herman RN LDA Cath/EP Sheath 04/01/23; 0825; 6.5 Russian (Fr); Left, Anterior; Femoral; Venous 04/01/23 0825 by Mary Herman RN 04/01/23 1057 by Mary Herman RN LDA Cath/EP Sheath 04/01/23; 0825; 6.5 Russian (Fr); Left, Anterior; Femoral; Venous 04/01/23 0825 by Mary Herman RN 04/01/23 1057 by Mary Herman RN LDA Cath/EP Sheath 04/01/23; 0827; 6.5 Russian (Fr); Right, Anterior; Femoral; Venous 04/01/23 0827 by Mary Herman RN 04/01/23 1057 by Mary Herman RN LDA Cath/EP Sheath 04/01/23; 0833; 5.5 Russian (Fr); Right, Anterior; Femoral; Venous 04/01/23 0833 [...] [facility] Anesthesia Start: 738 Anesthesia Stop: 1130 Procedure: ELECTROPHYSIOLOGY PROCEDURE Diagnosis: SVT (supraventricular tachycardia) (SVT (supraventricular tachycardia) [I47.10]) Providers: Jed Tovar MD Responsible Provider: Merlin Lozoya MD Anesthesia Type: general ASA Status: 3 All Anesthesia Providers: Anesthesiologist: Merlin Lozoya MD BUZZLE BUFFER: Jaspreet Perry CRNA Vitals Value Taken Time BP 104/58 04/01/23 1345 Temp 36.4 ??C (97.5 ??F) 04/01/23 1315 Pulse 66 04/01/23 1346 Resp 14 04/01/23 1346 SpO2 96 % 04/01/23 1346 Pain Level Vitals shown include unfiled device data. Patient Location: PACU/[facility] Level of Consciousness: Awake and Alert Pain [...] risks discussed with patient. Plan discussed with BUZZLE BUFFER. Anesthesia Screening documented in this encounter Plan of Treatment Upcoming Encounters Date Type Department Care Team (Late st Contact Info) Description 10/21/2023 10:30 AM EDT Hospital Encounter [place] [phone] Mary Reyes [facility] [place] [address] 10/21/2023 11:30 AM EDT Appointment [place] [address]-1000 Mary Reyes [facility] [place] [address] 10/21/2023 12:30 PM EDT Appointment [place] [address] Mary Reyes [facility] [place] [address] 10/21/2023 1:30 PM EDT Appointment [place] [address] Mary Reyes [facility] [place] [address] 10/21/2023 2:30 PM EDT Appointment [place] [address]1000 Mary Reyes [facility] [place] [address] 10/26/2023 4:00 PM EDT Office Visit Cardiology at [address] [phone] Jaspreet Kinsey MD [facility] [place] [address] 10/28/2023 9:00 AM EDT Office [place] [address] 10/29/2023 10:00 AM EDT Clinical [place] [address] 10/29/2023 10:15 AM EDT Procedure [place] [address] 11/01/2023 5:00 PM EDT Office Visit [place] [address] Selene Browning, PhD [facility] [place] [address] 11/22/2023 4:40 PM EDT Office Visit Cardiology at [address] [phone] Porsha Mcdaniels MD [facility] [place] [address] 12/13/2023 10:00 AM EDT Clinical Support [place] [address] [facility] [place] [address] documented as of this encounter Visit Diagnoses [...] mg/mL) multi-dose injection Intravenous, PRN, Starting on Uara 04/01/23 at 0750, Until Aura 04/01/23 at [...] mg documented in this encounter Care Teams Digital Asset Manager Relationship Specialty Start Date End Date Polo Pearce PA [address] [place] [address] PCP - General Internal Medicine 06/09/21 documented as of this encounter
--- OUTSIDE RECORDS SUMMARY | 2023-10-20 19:57 | XMS_ITS | Encounter Summary ---
[place] [address] Care Team Providers Care Right Of Way Buyer Name Role Phone Polo Pearce Primary Care Provider [phone] Reason for Visit * Auth/Cert (Routine) Specialty Diagnoses / Procedures Referred By Jayant harris Referred To Contact Diagnoses NSTEMI (non-ST elevated myocardial infarction) NSTEMI Procedures ER Lloyd Pantoja MD [facility] [place] [address] [facility] Referral ID Status Reason Start Date Expiration Date Visits Re quested Visits Authorized [id number] 1 1 Encounter Details Date Type Department Care Team (Latest Contact Info) Description 04/17/2023 9:15 AM EST - 04/17/2023 11:59 PM EST Hospital Encounter Non-[place] [address] Discharge Disposition: Home Social History Tobacco Use Types Packs/Day Years Used Date Smoking Tobacco: Never Smokeless Tobacco: Never Alcohol Use Standard Drinks/Week Comments Never 0 (1 standard drink = 0.6 oz pur e alcohol) [facility] Utilities Answer Date Recorded In [...] a nursing home (including now)? No 02/10/2023 DH IPV Inpatient [...] as needed. fluticasone propionate (FLONASE) 50 mcg/actuation [place], Suspension 1 spray by Each Nare route [...] AM EDT Hospital Encounter [place] [address] Mary Reyes [facility] [place] [address] 10/21/2023 11:30 AM EDT Appointment [place] [address] Mary Reyes [facility] [place] [address] 10/21/2023 12:30 PM EDT Appointment [place] [address] Mary Reyes [facility] [place] [address] 10/21/2023 1:30 PM EDT Appointment [place] [address] Mary Reyes [facility] [place] [address] 10/21/2023 2:30 PM EDT Appointment [place] [address] [place] [address] 10/26/2023 4:00 PM EDT Office Visit Cardiology at [address] [phone] Jaspreet Kinsey MD [facility] [place] [address] 10/28/2023 9:00 AM EDT Office [place] [address] 10/29/2023 10:00 AM EDT Clinical [place] [address] 10/29/2023 10:15 AM EDT Procedure [place] [address] 11/01/2023 5:00 PM EDT Office Visit [place] [address] Selene Browning, PhD [facility] [place] [address] 11/22/2023 4:40 PM EDT Office Visit Cardiology at [address] [phone] Porsha Mcdaniels MD [facility] [place] [address] 12/13/2023 10:00 AM EDT Clinical Support [place] [phone] Lucero Romero, ALVA [facility] [place] [address] documented as of this encounter Procedures Procedure [...] mLs documented in this encounter Care Teams Right Of Way Buyer Relationship Specialty Start Date End Date Polo Pearce PA [address] [place] [address] PCP - General Internal Medicine 06/09/21 documented as of this encounter
--- OUTSIDE RECORDS SUMMARY | 2023-10-20 19:57 | XMS_ITS | Encounter Summary ---
Author Organization [facility] Address [facility] [place] [address] Care Team Providers Care Glove Sewer Name Role Phone Polo Pearce Primary Care Provider [phone] Reason for Visit * Reason Comments Palpitations SVT Encounter Details Date Type Department Care Team (Late st Contact Info) Description 03/22/2023 4:20 PM EST Office Visit Cardiology at [address] [address] Jaspreet Kinsey MD [facility] [place] [address] SVT (supraventricular tachycardia); Pulmonary embolism without acute [...] Recorded In the past 12 months has [employer], gas, oil, or water [employer] threatened to shut off services in your [...] in early February; [place] [facility], amlodipine was [...] has been participating in cardiac rehab at [facility] and finds herself making gains in exertional [...] 30 DAYS fluticasone propionate (FLONASE) 50 mcg/actuation [place], Suspension 1 spray, Each Nare, DAILY gabapentin [...] upper lobe. Started on eliquis 08/2022 TTE ([facility]): normal bi-v s/f. No significant VHD (HFpEF) heart failure with preserved ejection fraction 05/2021: subacute, presented to [facility] with RUQ pain, weight gain, [...] AM EDT Hospital Encounter [place] [address] [place] [address] 10/21/2023 11:30 AM EDT Appointment [place] [address] Mary Reyes FILTER TANK TENDER HELPER HEAD [facility] [place] [address] 10/21/2023 12:30 PM EDT Appointment [place] [address] [place] [address] 10/21/2023 1:30 PM EDT Appointment [place] [address] [place] [address] 10/21/2023 2:30 PM EDT Appointment [place] [address] [place] [address] 10/26/2023 4:00 PM EDT Office Visit Cardiology at [address] [phone] Jaspreet Kinsey MD [facility] [place] [address] 10/28/2023 9:00 AM EDT Office [place] [address] 10/29/2023 10:00 AM EDT Clinical [place] [address] 10/29/2023 10:15 AM EDT Procedure [place] [address] 11/01/2023 5:00 PM EDT Office Visit [place] [address] Selene Browning, PhD [facility] [place] [address] 11/22/2023 4:40 PM EDT Office Visit Cardiology at [address] [phone] Porsha Mcdaniels MD [facility] [place] [address] 12/13/2023 10:00 AM EDT Clinical Support [place] [phone] Lucero Romero, RD [facility] [place] [address] documented as of this encounter Visit Diagnoses Diagnosis SVT (supraventricular tachycardia) Other specified cardiac dysrhythmias Pulmonary embolism without acute cor pulmonale, unspecified chronicity, unspecified pulmonary embolism type Paroxysmal atrial fibrillation Atrial fibrillation Heart failure with preserved ejection fraction, unspecified HF chronicity documented in this encounter Care Teams Glove Sewer Relationship Specialty Start Date End Date Polo Pearce PA [address] [place] [address] PCP - General Internal Medicine 06/09/21 documented as of this encounter
--- OUTSIDE RECORDS SUMMARY | 2023-10-20 19:57 | XMS_ITS | Encounter Summary ---
Author Organization [facility] [place] [address] Care Team Providers Care Cake Decorator Name Role Phone Polo Pearce Primary Care Provider [phone] Encounter Details Date Type Department Care Team (Late st Contact Info) Description 04/02/2023 Telephone Cardiology at [address] [phone] Ambreen Cartagena Social History Tobacco Use Types [...] this patient in follow up at [facility] in 2-3 months. She had SVT ablation 04/01/23. Message sent Mary at [facility] to get pt scheduled there for f/up. Ambreen Cartagena Sr. Clinical Procedure [place]/[address] [facility] [address] documented in this encounter Plan of Treatment Upcoming Encounters Date Type Department Care Team (Late st Contact Info) Description 10/21/2023 10:30 AM EDT Hospital Encounter [place] [address] Mary Reyes APRN [facility] [place] [address] 10/21/2023 11:30 AM EDT Appointment [place] [address] Mary Reyes APRN [facility] [place] [address] 10/21/2023 12:30 PM EDT Appointment [place] [address] Mary Reyes APRN [facility] [place] [address] 10/21/2023 1:30 PM EDT Appointment [place] [address] Mary Reyes [facility] [place] [address] 10/21/2023 2:30 PM EDT Appointment [place] [address] Mary Reyes [facility] [place] [address] 10/26/2023 4:00 PM EDT Office Visit Cardiology at [address] [phone] Jaspreet Kinsey MD [facility] [address] 10/28/2023 9:00 AM EDT Office [place] [address] 10/29/2023 10:00 AM EDT Clinical Support [place] [address] 10/29/2023 10:15 AM EDT Procedure [place] [address] 11/01/2023 5:00 PM EDT Office Visit [place] [phone] Selene Browning, PhD [facility] [place] [address] 11/22/2023 4:40 PM EDT Office Visit Cardiology at [address] [phone] Porsha Mcdaniels MD [facility] [place] [address] 12/13/2023 10:00 AM EDT Clinical Support [place] [phone] [facility] [place] [address] documented as of this encounter Visit Diagnoses Not on filedocumented in this encounter Care Teams Cake Decorator Relationship Specialty Start Date End Date Polo Pearce PA [address] [place] [address] PCP - General Internal Medicine 06/09/21 documented as of this encounter
--- OUTSIDE RECORDS SUMMARY | 2023-10-20 19:57 | XMS_ITS | Encounter Summary ---
Author Organization [facility] [place] [address] Care Team Providers Care Woodworker Helper Name Role Phone Polo Pearce Primary Care Provider [phone] Encounter Details Date Type Department Care Team (Late st Contact Info) Description 03/10/2023 Telephone Cardiology at [address] [place] [address] Nilda Mayes, RN Social History Tobacco Use Types Packs/Day Years Used Date Smoking Tobacco: Never Smokeless Tobacco: Never Alcohol Use Standard Drinks/Week Comments Never 0 (1 standard drink = 0.6 oz pur e alcohol) [facility] Utilities Answer Date Recorded In the past 12 months has e electric, gas, oil, or water [email or web address] threatened to shut off services in your [...] AM EDT Hospital Encounter [place] [address] [place] [address] 10/21/2023 11:30 AM EDT Appointment [place] [address] [place] [address] 10/21/2023 12:30 PM EDT Appointment [place] [address] Mary Reyes APRN [facility] [place] [address] 10/21/2023 1:30 PM EDT Appointment Nuclear Medicine at [place] [phone] [place] [address] 10/21/2023 2:30 PM EDT Appointment [place] [address] [place] [address] 10/26/2023 4:00 PM EDT Office Visit Cardiology at [address] [address] Jaspreet Kinsey MD [facility] [place] [address] 10/28/2023 9:00 AM EDT Office [place] [address] 10/29/2023 10:00 AM EDT Clinical [place] [address] 10/29/2023 10:15 AM EDT Procedure [place] [address] 11/01/2023 5:00 PM EDT Office [place] [address] Selene Browning, PhD [facility] [place] [address] 11/22/2023 4:40 PM EDT Office Visit Cardiology at [address] [phone] Porsha Mcdaniels MD [facility] [place] [address] 12/13/2023 10:00 AM EDT Clinical [place] [phone] [facility] [place] [address] documented as of this encounter Visit Diagnoses Not on filedocumented in this encounter Care Teams Woodworker Helper Relationship Specialty Start Date End Date Polo Pearce PA [address] [place] [id number] PCP - General Internal Medicine 06/09/21 documented as of this encounter
--- OUTSIDE RECORDS SUMMARY | 2023-10-20 19:57 | XMS_ITS | Encounter Summary ---
Author Organization [place] [address] Care Team Providers Care Placing Judge Name Role Phone Polo Pearce Primary Care Provider [phone] Encounter Details Date Type Department Care Team (Late st Contact Info) Description 04/16/2023 External [place] [phone] Social History Tobacco Use Types Packs/Day Years [...] AM EDT Hospital Encounter [place] [address] [place] [address] 10/21/2023 11:30 AM EDT Appointment [place] [address] Mary [place] [address] 10/21/2023 12:30 PM EDT Appointment [place] [address] Mary [place] [address] 10/21/2023 1:30 PM EDT Appointment [place] [address] Mary Reyes APRN [facility] [place] [address] 10/21/2023 2:30 PM EDT Appointment [place] [address] Mary Reyes APRN [facility] [place] [address] 10/26/2023 4:00 PM EDT Office Visit Cardiology at [address] [phone] Jaspreet Kinsey MD [facility] [address] 10/28/2023 9:00 AM EDT Office [place] [address] 10/29/2023 10:00 AM EDT Clinical Support [place] [address] 10/29/2023 10:15 AM EDT Procedure [place] [address] 11/01/2023 5:00 PM EDT Office Visit Gastroenterology at [place] [phone] Selene Browning, PhD [facility] [address] 11/22/2023 4:40 PM EDT Office Visit Cardiology at [address] [phone] Porsha Mcdaniels MD [facility] [address] 12/13/2023 10:00 AM EDT Clinical [place] [address] Lucero Romero, [facility] [place] [address] documented as of this encounter Procedures Procedure Name Priority Date/Time Associated Diagnosis Comments ECG SCAN Routine 04/16/2023 6:11 PM EST documented in this encounter Results * Scan Doc: ECG (04/16/2023 6:11 PM EST) Historical Provider MEDIA MGR SCAN EX T ORDR/RSLT documented in this encounter Visit Diagnoses Not on filedocumented in this encounter Care Teams Placing Judge Relationship Specialty Start Date End Date Polo Pearce PA [address] [place] [address] PCP - General Internal Medicine 06/09/21 documented as of this encounter
--- OUTSIDE RECORDS SUMMARY | 2023-10-20 19:57 | XMS_ITS | Encounter Summary ---
Author Organization [facility] [place] [address] Care Team Providers Care Liturgical Music Director Name Role Phone Polo Pearce Primary Care Provider [phone] Reason for Visit * Auth/Cert (Routine) Specialty Diagnoses / Procedures Referred By Jayant harris Referred To Contact Diagnoses NSTEMI (non-ST elevated myocardial infarction) NSTEMI Procedures ER Lloyd Pantoja MD [facility] [place] [address] [facility] Referral ID Status Reason Start Date Expiration Date Visits Re quested Visits Authorized [id number] 1 1 Encounter Details Date Type Department Care Team (Late st Contact Info) Description 04/18/2023 9:00 AM EST - 04/18/2023 10:04 AM EST Surgery [place] [address] Dustin Carrasco MD [facility] [place] [place] [address] CARDIAC CATHETERIZATION Social History Tobacco Use Types Packs/Day Years Used Date Smoking Tobacco: Never Smokeless Tobacco: Never Alcohol Use Standard Drinks/Week Comments Never 0 (1 standard drink = 0.6 oz pur e alcohol) [facility] Utilities Answer Date Recorded In the past 12 months has [employer], oil, or water [employer] threatened to shut off services in your [...] Loida Madrigal Patient Age: 53 y.o. Language: Nauruan Admit date: 04/16/2023 Discharge date and time: 04/19/2023 4:20 PM Attending Physician: Ailyn Knight MD. MD Eufemia Aly MD Discharge Physician: Lloyd Maloney MD ID & follow-up Recommendations for Providers: 53 y.o. female with h/o mild nonobstructive mid LAD ASCVD on CCTA 09/2022, remote cardiac catheterization with normal coronaries 08/2019, supraventricular tachycardia (AVNRT since 06/2021) s/p EPS and SVT ablation on 04/01/[address] Tovar, paroxysmal A-fib (diagnosed on 10/20/2022), HFpEF, pulmonary emboli on Eliquis, and restrictive lung disease secondary to obesity transferred from [facility] for further evaluation of exertional chest pressure and breathlessness. Abnormal OSH troponin 500 and repeat HS Trop at [facility] peak 27 with flat trend and elevated [...] discharge Inpatient Provider Contact Information: Cardiovascular Medicine [phone] Discharge Diagnoses (Hospital Problems) and Secondary Diagnoses [...] motion has increased. CTA PE protocol at [facility]- no PE but showed small pericardial effusion and some GG opacities. History of Presentation: Loida Madrigal is a 53 y.o. with hx of paroxysmal A-fib (diagnosed on 10/20/2022), pulmonary emboli on Eliquis, HFpEF (EF of 59%), supraventricular tachycardia (AVNRT since 06/2021) s/p EPS and SVTablation on 04/01/[address] Tovar on [facility], restrictive lung disease secondary to obesity presents from [facility] with complains of chest discomfort that started overnight. The patient has been experiencing ongoing chest pain, prompting admission on 02/11/23 primarily due to concerns about a NSTEMI indicated by elevated troponin levels and EKG changes noted at OSH. However, the observed EKG changes remained largely consistent with previous recordings. Troponin levels at [facility] showed a plateau at 23 > 27. [...] again 10/15, improving with sublingua Nitro. At [facility] Vitals: HR 48, BP 115/42, O2 [...] #Acute on chronic HFpEF Patient presented to [facility] on 04/16 with chest pain responsive to SL NTG. Troponin ~500x2. Transferredto [facility] for further evaluation. Troponin at [facility], 24>23 w/ repeat peak 27->26. She [...] days. Refills: 0 fluticasone propionate 50 mcg/actuation Oxford, Suspension Commonly known as: Flonase 1 spray [...] 9:40 AM Jaspreet Kinsey MD Cardiology at [place] Arrive at: [facility] [address] [phone] 09/21/2023 3:00 PM Jaspreet Kinsey MD Cardiology at [place] Arrive at: [facility] [address] [phone] Discharge References/Attachments None Greater than 30 minutes was spent on this discharge including documentation, [id number] time withthe patient, patient education, order entry specialist, coordination with pharmacy and other patient [...] away. Stay on the phone. The emergency automatic brine mixer operator will tell you what to do. [...] of 8AM-5PM please call the Cardiology Clinic [phone] to speak with a nurse. All other hours please call the Hospital River Rafting Guide [phone] and ask to speak to the buzzsaw operator on-call. Return to work: One week Follow up Appointments: Doctor Where Phone # Date Time PCP JOCY [address] [place] [address] 04/28/2023 7:30 AM Supervisor Electron T[employer] [address] Dr[facility] Kinsey [facility] [address] 05/10/2023 9:40 AM * Attachments The following attachments cannot be sent through Care Everywhere. * Coronary Angiogram: Post-op (Nauruan) documented in this encounter Medications at Time [...] nightly as needed. empagliflozin (Jardiance) 10 mg TabletIndications:Granulating Blender neal heart failure with preserved ejection fraction Take 1 tablet by mouth daily. 90 tablet 1 06/11/2021 rOPINIRole (Requip) 1 mg Tablet Take 2 mg by mouth 2 times daily. 07/16/2020 loratadine (Claritin) 10 mg Tablet Take 10 mg by mouth daily as needed. fluticasone propionate (FLONASE) 50 mcg/actuation Oxford, Suspension 1 spray by Each Nare route [...] reviewed with pt, pt wheeled to d/c [facility]. I agree with the information in this [...] were not included. CARDIOLOGY APP1 - [facility] DAILY PROGRESS NOTE Page [phone] to reach a provider 28/09 Admit Date: [...] disease secondary to obesity who presented to [facility] on 04/16 with chest pain responsive to SL NTG. Troponin ~500x2. Transferred to [facility] for further evaluation. Troponin at [facility], 24>23. Reports exertional chest pressure and [...] and no pericardial effusion. She underw ent [facility] on 04/18 which showed non-obstructive ASCVD. [...] Score: 24 PT: OT: PCP JOCY Franco [phone] Discussed with MD Kurt Ray PA-C APP1 pager [phone] 04/22/2023 CV HOSPITALIST ADDENDUM Date of Service: [...] 6:10 PM EST CARDIOLOGY APP1 - [facility] DAILY PROGRESS NOTE Page [phone] to reach a provider 28/09 Admit Date: [...] 12 CRP <=4.9 mg/L <3.0 <3.0 OSH [facility] troponin ~500. Telemetry: I have personally [...] disease secondary to obesity who presented to [facility] on 04/16 with chest pain responsive to SL NTG. Troponin ~500x2. Transferred to [facility] for further evaluation. Troponin at [facility], 24>23. Reports exertional chest pressure and [...] occur Diet: Daily Healthy Menu Choices/Cardiac diet ([facility]-Diet) 2 GM NA DVT Prophylaxis: DOAC Code status: Attempt Cardiopulmonary Resuscitation - Inpatient Disposition: Discharge Location: AM-PAC Basic Mobility Raw Score: 22 PT: OT: PCP JOCY Franco [phone] * Eufemia Copeland MD - 04/20/2023 4:34 PM EST CARDIOLOGY APP1 - [facility] DAILY PROGRESS NOTE Page [phone] to reach a provider 28/09 Admit Date: [...] 12 CRP <=4.9 mg/L <3.0 <3.0 OSH [facility] troponin ~500. Telemetry: I have personally [...] disease secondary to obesity who presented to [facility] on 04/16 with chest pain responsive to SL NTG. Troponin ~500x2. Transferred to [facility] for further evaluation. Troponin at [facility], 24>23. Reports exertional chest pressure and [...] occur Diet: Daily Healthy Menu Choices/Cardiac diet ([facility]-Diet) 2 GM NA; 2000 mL FLUID DVT Prophylaxis: DOAC Code status: Attempt Cardiopulmonary Resuscitation - Inpatient Disposition: Discharge Location: AM-PAC Basic Mobility Raw Score: 24 PT: OT: PCP JOCY Franco [phone] * Carrol La PA - 04/19/2023 12:32 PM EST CARDIOLOGY APP1 - [facility] DAILY PROGRESS NOTE Page [phone] to reach a provider 28/09 Admit Date: [...] 12 CRP <=4.9 mg/L <3.0 <3.0 OSH [facility] troponin ~500. EKG: Sinus bradycardia, 47 bpm, PAC, possible left atrial enlargement, possible lateral infarct, QTc 511. Telemetry: I have personally reviewed and interpreted the telemetry from the last 24 hours. Resultsshow sinus bradycardia with HR 50s, PVCs, heart rate climbs to 70s with activity.. Imaging: [facility] 04/18/23 Conclusions: * Nonobstructive coronary artery [...] motion has increased. CTA PE protocol at [facility]- no PE but showed small pericardial [...] acute aortopathy. 4. No acute pulmonary findings. [facility] 06/09/2021-RA 4, PA 38/15 (24) PCWP 11, CO/CI 3.14/1.6. [facility] 08/30/2019-normal coronary arteries. Assessment & Plan: [...] disease secondary to obesity who presented to [facility] on 04/16 with chest pain responsive to SL NTG. Troponin ~500x2. Transferred to [facility] for further evaluation. Troponin at [facility], 24>23. Reports exertional chest pressure and [...] and no pericardial effusion. She underw ent [facility] on 04/18 which showed non-obstructive ASCVD. [...] continues. Diet: Daily Healthy Menu Choices/Cardiac diet ([facility]-Diet) 2 GM NA; 2000 mL FLUID DVT Prophylaxis: DOAC Code status: Attempt Cardiopulmonary Resuscitation - Inpatient Disposition: Discharge Location: AM-[facility] Basic Mobility Raw Score: 24 PT: OT: PCP JOCY Franco [phone] Discussed with MD Carrol Aly PA-C APP1 Pager: [phone] 04/19/2023 Alex Albarran RCP - 04/18/2023 10:10 PM EST [...] Continue CPAP for nocturnal use as tolerated ALEX LEW RCP IE * Kurt Silveira PA - 04/18/2023 8:27 AM EST Images from the original note were not included. CARDIOLOGY APP1 - [facility] DAILY PROGRESS NOTE Page [phone] to reach a provider 28/09 Admit Date: [...] breathlessness. Awaiting cardiac catheterization potentially today if [employer] availability allows.She remains on ACS therapies. Medications: [...] 12 CRP <=4.9 mg/L <3.0 <3.0 OSH [facility] troponin ~500. EKG: Sinus bradycardia, 47 [...] motion has increased. CTA PE protocol at [facility]- no PE but showed small pericardial [...] lung disease secondary to obesity presents from [facility] with complains of exertional chest [...] or NTG drip if ongoing chest pain -[facility] 04/18 depending on [employer] availability. #Hx of pAfib #Hx of AVNRT [...] Score: 24 PT: OT: PCP JOCY Franco [phone] Discussed with MD Kurt Sheppard PA-C APP1 pager [phone] 04/18/2023 * Kurt Silveira PA - 04/17/2023 7:15 AM EST Images from the original note were not included. CARDIOLOGY APP1 - [facility] DAILY PROGRESS NOTE Page [phone] to reach a provider 28/09 Admit Date: [...] 12 CRP <=4.9 mg/L <3.0 <3.0 OSH [facility] troponin ~500. EKG: Sinus bradycardia, 47 [...] motion has increased. CTA PE protocol at [facility]- no PE but showed small pericardial [...] acute aortopathy. 4. No acute pulmonary findings. [facility] 06/09/2021-RA 4, PA 38/15 (24) PCWP 11, CO/CI 3.14/1.6. [facility] 08/30/2019-normal coronary arteries. Assessment & Plan: [...] lung disease secondary to obesity presents from [facility] with complains of exertional chest [...] or NTG drip if ongoing chest pain -[facility] 04/18 or 04/19 depending on [employer] availability. #Hx of pAfib #Hx of AVNRT sp EPS and Ablation - hold eliquis. Last taken on 04/16/23 am. - Continue IV heparin. # Hx of PE- continue with IV heparin Diet: No diet orders on file DVT Prophylaxis: DOAC Code status: Attempt Cardiopulmonary Resuscitation - Inpatient Disposition: Discharge Location: AM-PAC Basic Mobility Raw Score: 14 PT: OT: PCP JOCY Franco [phone] Discussed with MD Kurt Sheppard PA-C APP1 pager [phone] 04/17/2023 documented in this encounter H&P Notes * Lloyd Maloney MD - 04/16/2023 11:38 PM EST [...] SVTablation on 04/01/[address] Tovar on [facility], restrictive lung disease secondary to obesity presents from [facility] with complains of chest discomfort that started overnight. The patient has been experiencing ongoing chest pain, prompting admission on 02/11/23 primarily due to concerns about a NSTEMI indicated by elevated troponin levels and EKG changes noted at OSH. However, the observed EKG changes remained largely consistent with previous recordings. Troponin levels at [facility] showed a plateau at 23 > 27. [...] again 10/15, improving with sublingua Nitro. 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 fluticasone propionate (FLONASE) 50 mcg/actuation Oxford, Suspension 1 spray by Each Nare route [...] SVTablation on 04/01/[address] Tovar on [facility], restrictive lung disease secondary to obesity presents from [facility] with complains of chest discomfort [...] if hypotensive / cardiogenic shock / inferior SC / sildenafil within past 24 hours) - [...] code Cardiac diet Heparin for DVT ppx.. Lloyd Maloney MD 04/16/2023 documented in this encounter [...] (see comments), grab bar - tub/shower (CPAP [facility]) DME Needed at Discharge: N/A Patient is insured through: Primary Insurance: [employer] [place] Payor: [employer] [place] / Plan: [place]ANGE / Product Type: *No Product type* / Secondary Insurance: N/A Prescription Coverage: Yes This plan was formulated with input from patient and team. All are in agreement with plan. * Consult Note - Maegan Mike APRN - 04/22/2023 10:38 AM EST Images from the original note were not included. [facility] [place] [address] INPATIENT CARDIOLOGY CONSULT PROGRESS NOTE Interval events: [...] insights. Discussed with MD Maegan De Leon, JUNIOR PROGRAMMER Pager [phone] 04/22/2023 Associated attestation - Jaspreet Kinsey MD [...] Tatum MSW - 04/20/2023 2:22 PM EST FAMILY INTERVENTION SPECIALIST received a consult to support patient with financial concerns. FAMILY INTERVENTION SPECIALIST met with patient and introduced self. Patient stated due to hospitalization, she has been out of work and feeling stress around not being able to pay bills. I have a car payment and other bills and it's like I have to choose which one to pay and which one not to pay. FAMILY INTERVENTION SPECIALIST validated patient's stress around financial concerns. FAMILY INTERVENTION SPECIALIST asked patient if she has applied for [employer] or any other state benefits. Patient stated that she has, but is over the household income criteria to qualify for benefits. Patient shared that she owns her home outright and mainly concerned about making her car payment and transportation home. MSWstated that care management will help arrange for a ride, if needed. FAMILY INTERVENTION SPECIALIST provided patient with community resources such as the [facility] Food Directory, the [facility] Community Action phone number, and the [facility] [employer] on Aging contact info. FAMILY INTERVENTION SPECIALIST available to support patient should anything else [...] Admitted From: Transfer from another hospital Location: [facility] Reason for Hospitalization: chest pain and cough Covid Vaccination Status: 1st, 2nd & booster Last COVID test: Lab Results Component Value Date [id number] Not Detected 06/13/2021 Past medical History: Past [...] shut off services in your home?: Yes ([employer] is currently threatening to shut off electricity [...] (see comments), grab bar - tub/shower (CPAP [facility]) Home Address confirmed as: [address] [address] Social & Family Supports: All names listed [...] Specific Information: N/A Health/Prescription Coverage: Primary Insurance: [employer] Payor: [employer] [place] / Plan: [place]ANGE / Product Type: *No Product type* / Secondary Insurance: N/A ; Prescription Coverage: Yes Preferred Pharmacy: [facility] - [place], [place] - [address] [facility] [address] [facility] [place] [address] [facility] - [place], [place] - [address] [facility] [address] [facility] [address] [facility] [address] Status: Patient is a : No Primary Care Provider confirmed: JOCY Franco [phone] Patient/Caregiver Goals of Treatment: home w / family when MR Potential Needs for Transition of Care: other (see comments) (FAMILY INTERVENTION SPECIALIST support; pt's spouse was denied twice for [...] Concerns to be Addressed: financial/insurance, discharge planning; FAMILY INTERVENTION SPECIALIST consult placed to discuss available resources Assessment: Patient is admitted to [facility] service for NSTEMI Plan: pending [...] not included. [facility] [place] [address] INPATIENT CARDIOLOGY CONSULT NOTE Reason for Consult: [...] ACS with DAPT and heparin prior to [facility] 04/18, which was negative for any [...] Went to cathlab, came back ~1115am, s/p [facility] with no coronary artery disease seen. [...] for further details. JOCY Marie 04/17/2023 Pager [phone] * Plan of Care - Sudhakar Smith [...] AM EDT Hospital [place] [address] Mary Reyes [facility] [place] [address] 10/21/2023 11:30 AM EDT Appointment Nuclear Medicine at [place] [id number] Mary Reyes [facility] [place] [address] 10/21/2023 12:30 PM EDT [place]oint[place] [address] Mary Reyes [facility] [place] [address] 10/21/2023 1:30 PM EDT [place] [address] [place] [address] 10/21/2023 2:30 PM EDT [place]oint[place] [address] Mary Reyes [facility] [place] [address] 10/26/2023 4:00 PM EDT Office Visit Cardiology at [address] [phone] Jaspreet Kinsey MD [facility] [place] [address] 10/28/2023 9:00 AM EDT Office [place] [address] 10/29/2023 10:00 AM EDT Clinical [place] [address] 10/29/2023 10:15 AM EDT Procedure [place] [address] 11/01/2023 5:00 PM EDT Office Visit [place] [address] Selene Browning, PhD [facility] [place] [address] 11/22/2023 4:40 PM EDT Office Visit Cardiology at [address] [phone] Porsha Mcdaniels MD [facility] [place] [address] 12/13/2023 10:00 AM EDT Clinical Support [place] [address] Lucero Romero, RD [facility] [place] [address] documented as of this encounter Procedures Procedure [...] 3 AM EST CRP, ACUTE INFLAMMATION Routine 02/10/20 24 3:33 AM EST HEMOGRAM Routine 04/17/2023 [...] who have questions please contact the health spiritual care coordinator that requested your imaging first. ? 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 Following IV administration of 26.5 mCi technetium 99m sestamibi, SPECT-CT of the heart was obtained. Following IV injection of 8.8 mCi 93-ocuase-5-deoxyglucose (FDG) and a standard uptake of approximately [...] obtained. Following IV injection of 8.8 mCi 04-zuzufj-3-deoxyglucose (FDG) and astandard uptake of approximately 60 [...] patients who have questions please contactthe health spiritual care coordinator that requested your imaging first. Electronically signed by: Humberto Qureshi MD, [facility]([phone]), at 05/06/2023 11:09 AM Maegan Mike JUNIOR PROGRAMMER IMG PET ORDERABLE S * MRI Cardiac [...] who have questions please contact the health spiritual care coordinator that requested your imaging first. ? Electronically signed by: Karon Nur MD, [facility] ([phone]), at 04/21/2023 5:33 PM Narrative 04/21/2023 5:33 [...] patients who have questions please contactthe health spiritual care coordinator that requested your imaging first. Lloyd Maloney MD IMG MRI ORDERABLES * Hemogram (04/21/2023 3:40 AM EST) White Blood Cell 7.1 4.0 - 9.5 x10(3)/[facility] LABORATORY Red Blood Cell 4.59 4.00 - 5.21 x10(6)/[facility] LABORATORY Hemoglobin 14.4 11.7 - 15.5 g/dL [facility] Hematocrit 43.0 35.7 - 45.8 % [facility] Mean Cell Volume 93.7 82.6 - 94.4 fL [facility] Mean Cell Hemoglobin 31.4 27.1 - 32.0 pg [facility] Mean Cell Hemoglobin Concentration 33.5 31.7 - 35.0 g/dL [facility] Platelet 221 145 - 357 x10(3)/[facility] LABORATORY RDW Standard Deviation 43.5 37.0 - 46.0 fL [facility] RDW coefficient of variation 12.6 11.5 - 14.1 % [facility] Mean Platelet Volume 11.1 7.6 - 12.9 fL [facility] NRBC% auto 0.0 % [facility]ORAT[facility] NRBC Absolute 0.000 0.000 - 0.000 x10(3)/[facility] LABORATORY Blood 04/21/2023 3:40 AM EST 04/21/2023 3:58 AM EST Narrative Resulting Agency Comment Spec In Lab Ailyn Knight MD HEMATOLOGY ORDERABLE S [facility] [place] [address] * (ABNORMAL) BMP w/fasting Glucose (04/21/2023 3:40 AM EST) Glucose Fasting 107(H) 65 - 99 mg/dL [facility] Comment: ?Fasting* Glucose Interpretive Criteria Normal [...] of Diabetes Mellitus, Position Statement from the [place] Diabetes [employer]. ??Diabetes Care, Volume 33, Supplement 1, Mar 2009 Blood Urea Nitrogen 20(H) 8 - 18 mg/dL [facility] Creatinine 1.14 0.70 - 1.20 mg/dL [facility] Sodium 138 135 - 145 mmol/L [facility] Potassium 3.8 3.5 - 5.0 mmol/L [facility] Comment: Please note: ??Patients with WBC >100,000 may have falsely elevated Potassium levels. ??For accurate Potassium quantification in these patients send serum separator tube (gold top) for subsequent determinations. ??Contact the Clinical Chemistry Laboratory if there are any questions. Chloride 106 98 - 107 mmol/L [facility] Carbon Dioxide 22 22 - 31 mmol/L [facility] Anion Gap 10 5 - 15 mmol/L [facility] Calcium 9.2 8.5 - 10.5 mg/dL [facility] Est Glomerular Filtration Rate 57(L) >=60 mL/min/1. 73 m?? [facility] Comment: This patient's estimated GFR was [...] Knight MD CHEMISTRY ORDERABLES Performing Organization Address City/[facility]/ZIP Co de Phone Number [facility] [place] [address] * Magnesium (04/21/2023 3:40 AM EST) Magnesium 0.90 0.69 - 1.07 mmol/L [facility] Blood 04/21/2023 3:40 AM EST 04/21/2023 3:58 AM EST Narrative Resulting Agency Comment Spec In Lab Ailyn Knight MD CHEMISTRY ORDERABLES Performing Organization Address [facility] Co de Phone Number [facility] [place] [address] * (ABNORMAL) Troponin (04/20/2023 4:44 PM EST) Troponin-T, High Sensitivity 26(H) <=14 ng/L [facility] Comment: This patient's troponin T concentration [...] troponin value can be found in the [facility] Laboratory Test Catalog Troponin - [facility] Laboratory Test Catalog Reference: [place] Definition of Myocardial Infarction. Journal of the [employer] 2018;72:0093-6769 Blood 04/20/2023 4:44 PM EST 04/20/2023 4:53 PM EST Narrative Resulting Agency Comment Spec In Lab Eufemia Copeland MD CHEMISTRY ORDERABL ES [facility] [place] [address] * Duplex for DVT, Arm, Unilat (04/20/2023 4:22 PM EST) VB Text Report Department: Vascular Surgery Lab Patient: [id number] (LOIDA MADRIGAL) CPT: 45688 Referring Physician: LLOYD MALONEY ?? Phone: Indications: Right arm edema [...] of Report VASCUBASE 04/20/2023 4:22 PM EST Lloyd Maloney MD VASCULAR ORDERABLES Performing Organization Address City/[facility]/ZIP Co de Phone Number VASCU[facility] * (ABNORMAL) Troponin (04/20/2023 1:47 PM EST) Troponin-T, High Sensitivity 27(H) <=14 ng/L [facility] Comment: This patient's troponin T concentration [...] troponin value can be found in the [facility] Laboratory Test Catalog Troponin - [facility] Laboratory Test Catalog Reference: [place] Definition of Myocardial Infarction. Journal of the [employer] 2018;72:6226-2686 Blood 04/20/2023 1:47 PM EST 04/20/2023 2:18 PM EST Narrative Resulting Agency Comment Spec In Lab Eufemia Copeland MD CHEMISTRY ORDERABL ES [facility] [place] [address] * (ABNORMAL) Troponin (04/20/2023 10:48 AM EST) Troponin-T, High Sensitivity 24(H) <=14 ng/L [facility] Comment: This patient's troponin T concentration [...] troponin value can be found in the [facility] Laboratory Test Catalog Troponin - [facility] Laboratory Test Catalog Reference: [employer] [place] Definition of Myocardial Infarction. Journal of the [employer] 2018;72:8332-2718 Blood 04/20/2023 10:4 8 AM EST 04/20/2023 11:03 AM EST Narrative Resulting Agency Comment Spec In Lab Eufemia Copeland MD CHEMISTRY ORDERABL ES Performing Organization Address City/[facility] [place] [place] [address] * EKG 12 Lead (04/20/2023 10:23 AM EST) Ventricular rate 60 BPM MUSE SYSTEM Atrial Rate 60 BPM MUSE SYSTEM P-R Interval 170 ms MUSE SYSTEM QRS Duration 86 ms MUSE SYSTEM Q-T Interval 470 ms MUSE SYSTEM QTC Calculated (Bezet) 470 ms MUSE SYSTEM Calculated P [place] 39 degrees MUSE SYSTEM Calculated R [place] 63 degrees MUSE SYSTEM Calculated T [place] -16 degrees MUSE SYSTEM INTERPRETATION Normal sinus rhythm Possible Lateral infarct (cited on or before 17-APR-2023) Marked ST abnormality, possible inferior subendocardial injury Abnormal ECG When compared with ECG of 17-APR-2023 03:41, Premature atrial complexes are no longer Present ST now depressed in Anterior leads ST now depressed in Inferior leads Nonspecific T wave abnormality, worse in Lateral leads Confirmed by MD Benitez Gregory A. ([id number]) on 04/22/2023 12:10:07 PM MUSE SYSTEM 04/20/2023 10:2 3 AM EST 04/22/2023 12:10 PM EST Lloyd Maloney MD ECG ORDERABLES Performing Organization Address City/[facility]/ZIP Co de Phone Number MUSE SYSTEM * Hemogram (04/20/2023 3:11 AM EST) White Blood Cell 6.6 4.0 - 9.5 x10(3)/[facility] Red Blood Cell 4.59 4.00 - 5.21 x10(6)/[facility] Hemoglobin 14.2 11.7 - 15.5 g/dL [facility] Hematocrit 42.7 35.7 - 45.8 % [facility] Mean Cell Volume 93.0 82.6 - 94.4 fL [facility] Mean Cell Hemoglobin 30.9 27.1 - 32.0 pg [facility] Mean Cell Hemoglobin Concentration 33.3 31.7 - 35.0 g/dL [facility] Platelet 231 145 - 357 x10(3)/[facility]AT[facility] RDW Standard Deviation 43.6 37.0 - 46.0 fL [facility] RDW coefficient of variation 12.6 11.5 - 14.1 % [facility] Mean Platelet Volume 11.0 7.6 - 12.9 fL [facility] NRBC% auto 0.0 % [facility] NRBC Absolute 0.000 0.000 - 0.000 x10(3)/[facility] Blood 04/20/2023 3:11 AM EST 04/20/2023 3:24 AM EST Narrative Resulting Agency Comment Spec In Lab Ailyn Knight MD HEMATOLOGY ORDERABLE S Performing Organization Address [facility] Co de Phone Number [facility] [place] [address] * (ABNORMAL) BMP w/fasting Glucose (04/20/2023 3:11 AM EST) Glucose Fasting 107(H) 65 - 99 mg/dL [facility] Comment: ?Fasting* Glucose Interpretive Criteria Normal [...] of Diabetes Mellitus, Position Statement from the [employer]. ??Diabetes Care, Volume 33, Supplement 1, Mar 2009 Blood Urea Nitrogen 20(H) 8 - 18 mg/dL [facility] Creatinine 1.05 0.70 - 1.20 mg/dL [facility] Sodium 139 135 - 145 mmol/L [facility] Potassium 3.6 3.5 - 5.0 mmol/L [facility] Comment: Please note: ??Patients with WBC >100,000 may have falsely elevated Potassium levels. ??For accurate Potassium quantification in these patients send serum separator tube (gold top) for subsequent determinations. ??Contact the Clinical Chemistry Laboratory if there are any questions. Chloride 106 98 - 107 mmol/L [facility] Carbon Dioxide 21(L) 22 - 31 mmol/L [facility] Anion Gap 12 5 - 15 mmol/L [facility] Calcium 9.3 8.5 - 10.5 mg/dL [facility] Est Glomerular Filtration Rate 63 >=60 mL/min/1. 73 m?? [facility] Comment: This patient's estimated GFR was [...] In Lab Ailyn Knight MD CHEMISTRY ORDERABLES [facility] [place] [address] * Magnesium (04/20/2023 3:11 AM EST) Magnesium 0.91 0.69 - 1.07 mmol/L [facility] Blood 04/20/2023 3:11 AM EST 04/20/2023 3:24 AM EST Narrative Resulting Agency Comment Spec In Lab Ailyn Knight MD CHEMISTRY ORDERABLES [facility] [place] [address] * Respiratory Panel PCR (04/19/2023 2:05 PM EST) Respiratory Panel Source PERFORMANCE MAKEUP ARTIST Swab [facility] Respiratory Panel PCR Negative Negative [facility] Comment: Respiratory Panels are performed on the [employer]edu.in, using multiplexed PCR nucleic acid detection. ??Negative results do not preclude respiratory infection and should not be used as the sole basis for diagnosis, treatment or other management decisions. Adenovirus Not Detected Not Detected [facility] Coronavirus HKU1 Not Detected Not Detected [facility] Coronavirus NL63 Not Detected Not Detected [facility] Coronavirus 229E Not Detected Not Detected [facility] Coronavirus OC43 Not Detected Not Detected [facility] SARS-CoV-2 Not Detected Not Detected [facility] Comment: Testing for SARS-CoV-2 (Severe acute respiratory syndrome coronavirus 2) to aid in the diagnosis of COVID-19 is performed using the BioFire Respiratory Panel 2.1 (LetGive) as authorized by the FDA issued Emergency Use Authorization (EUA). This panel also tests for multiple other viral and bacterial pathogens. This assay is intended for In-vitro Diagnostic (IVD) use with nasopharyngeal swabs in viral transport media. The assay is performed based on the instructions for use and additional guidance provided by the FDA. Testing is performed in laboratories within the [facility], each of which is certified under [...] fact sheets at the following FDA website: https://www.fda.gov/medical-devices/wkhajzwtvet-qtliifx-1334-zdgsq-65-hwabwfbwx- use-a eqoamluxzyyna-zehizqv-vfypazt/popcz-caelvnaayhe-ffmm Human Metapneumovirus Not Detected Not Detected [facility] Human Rhinovirus/Enterov irus Not Detected Not Detected [facility] Influenza A Not Detected Not Detected [facility] Influenza B Not Detected Not Detected [facility] Parainfluenza 1 Not Detected Not Detected [facility] Parainfluenza 2 Not Detected Not Detected [facility] Parainfluenza 3 Not Detected Not Detected [facility] Parainfluenza 4 Not Detected Not Detected [facility] Respiratory Syncytial Virus Not Detected Not Detected [facility] Chlamydophila pneumoniae Not Detected Not Detected [facility] Mycoplasma pneumoniae Not Detected Not Detected [facility] Nasopharyngeal Swab Other / Unknown 04/19 2:05 PM EST 04/19/2023 3:16 PM EST Narrative Resulting Agency Comment Spec In Lab Carrol SANDRA MICROBIOLOGY - GENER AL ORDERABLES Performing Organization Address City/[facility]/ZIP Co de Phone Number [facility] [place] [address] * (ABNORMAL) Urine culture (04/19/2023 10:25 AM EST) Urine Culture 10,000-49,000 cfu/ml mixed mucosal elmer Note: Culture shows multiple bacterial species suggesting mucosal contamination. (A) [facility] Clean Catch Urine 04/19/2023 10:25 AM EST 04/19/2023 12:49 PM EST Narrative Resulting Agency Comment Spec In Lab Carrol SANDRA MICROBIOLOGY - GENER AL ORDERABLES Performing Organization Address [facility] Co de Phone Number [facility] [place] [address] * (ABNORMAL) Urinalysis Microscopic Exam (04/19/2023 10:25 AM EST) RBC, Urine 1 0 - 4 /HPF [facility] WBC, Urine 10(H) 0 - 5 /HPF [facility] Squamous Epithelial Cells Raw Data, Urine 4 <=4 /HPF [facility] Hyaline Casts, Urine 1 0 - 2 /LPF [facility] Clean Catch Urine 04/19/2023 10:25 AM EST 04/19/2023 11:08 AM EST Narrative Resulting Agency Comment Spec In Lab Carrol SANDRA URINE ORDERABLES Performing Organization Address City/[facility]/ZIP Co de Phone Number [facility] [place] [address] * (ABNORMAL) Urinalysis with reflex Culture (04/19/2023 10:25 AM EST) Glucose, Urine Dipstick >=1000(Criti edy) Negative mg/dL [facility] Comment: Urinalysis result NOT critical without a combination of Glucose greater than or equal to 500 mg/dL AND Ketones greater than or equal to 80 mg/dL Protein, Urine Dipstick Negative Negative mg/dL [facility] Bilirubin, Urine Dipstick Negative Negative mg/dL [facility] Comment: Clinical correlation required for positive Urine Bilirubin results as false positive may occur with some drugs and drug related products. If a false positive is suspected a serum total bilirubin should be considered if clinically indicated. Urobilinogen, Urine Dipstick Normal Normal mg/dL [facility] pH, Urn (dipstick) 5.5 5.0 - 8.0 [facility] Blood, Urine Dipstick Negative Negative mg/dL [facility] Ketone, Urine Dipstick Negative Negative mg/dL [facility] Nitrite, Urine Dipstick Negative Negative [facility] Leukocytes, Urine Dipstick Small(A) Negative mcL [facility] Appearance, Urine Dipstick Clear Clear [facility] Specific [place] Urine Automated 1.024 1.005 - 1.030 [facility] Color, Urine Dipstick Yellow Yellow [facility] Reflex to Culture Yes [facility] Clean Catch Urine 04/19/2023 10:25 AM EST 04/19/2023 11:08 AM EST Narrative Resulting Agency Comment Spec In Lab Ailyn Knight MD URINE ORDERABLES Performing Organization Address City/State/[facility] Co de Phone Number [facility] [place] [address] * Arterial Duplex Arm, Unilat (04/19/2023 9:40 AM EST) VB Text Report Department: Vascular Surgery Lab Patient: [id number] (LOIDA MADRIGAL) CPT: 22985 Referring Physician: AILYN KNIGHT ?? Phone: Indications: [...] White Blood Cell 7.5 4.0 - 9.5 x10(3)/[facility] LABORATORY Red Blood Cell 4.86 4.00 - 5.21 x10(6)/[facility] Hemoglobin 14.8 11.7 - 15.5 g/dL [facility] Hematocrit 45.5 35.7 - 45.8 % [facility] Mean Cell Volume 93.6 82.6 - 94.4 fL [facility] Mean Cell Hemoglobin 30.5 27.1 - 32.0 pg [facility] Mean Cell Hemoglobin Concentration 32.5 31.7 - 35.0 g/dL [facility] Platelet 240 145 - 357 x10(3)/mcL [facility] RDW Standard Deviation 43.8 37.0 - 46.0 fL [facility] RDW coefficient of variation 12.7 11.5 - 14.1 % [facility] Mean Platelet Volume 11.0 7.6 - 12.9 fL [facility] NRBC% auto 0.0 % [facility] NRBC Absolute 0.000 0.000 - 0.000 x10(3)/[facility] Blood 04/19/2023 2:40 AM EST 04/19/2023 2:57 AM EST Narrative Resulting Agency Comment Spec In Lab Ailyn Knight MD HEMATOLOGY ORDERABLE S Performing Organization Address City/State/[facility] Co de Phone Number [facility] [place] [address] * (ABNORMAL) BMP w/fasting Glucose (04/19/2023 2:40 AM EST) Glucose Fasting 106(H) 65 - 99 mg/dL [facility] Comment: ?Fasting* Glucose Interpretive Criteria Normal [...] of Diabetes Mellitus, Position Statement from the [place] [employer]. ??Diabetes Care, Volume 33, Supplement 1, Mar 2009 Blood Urea Nitrogen 22(H) 8 - 18 mg/dL [facility] Creatinine 1.11 0.70 - 1.20 mg/dL [facility] Sodium 139 135 - 145 mmol/L [facility] Potassium 4.0 3.5 - 5.0 mmol/L [facility] Comment: Please note: ??Patients with WBC >100,000 may have falsely elevated Potassium levels. ??For accurate Potassium quantification in these patients send serum separator tube (gold top) for subsequent determinations. ??Contact the Clinical Chemistry Laboratory if there are any questions. Chloride 105 98 - 107 mmol/L [facility] Carbon Dioxide 20(L) 22 - 31 mmol/L [facility] Anion Gap 14 5 - 15 mmol/L [facility] Calcium 9.5 8.5 - 10.5 mg/dL [facility] Est Glomerular Filtration Rate 59(L) >=60 mL/min/1. 73 m?? [facility] Comment: This patient's estimated GFR was [...] In Lab Ailyn Knight MD CHEMISTRY ORDERABLES [facility] [place] [address] * Magnesium (04/19/2023 2:40 AM EST) Magnesium 0.97 0.69 - 1.07 mmol/L [facility] Blood 04/19/2023 2:40 AM EST 04/19/2023 2:57 AM EST Narrative Resulting Agency Comment Spec In Lab Ailyn Knight [place] [address] * CARDIAC CATHETERIZATION (04/18/2023 11:05 AM EST) Anatomical Region Laterality Modality Other Narrative 04/19/2023 6:57 AM EST ?[facility] ? Cardiac Catheterization/Intervention Report ? Patient Name: Neisha, Loida ? Procedure Date: 04/18/2023 ? A #: [id number] ? Primary Physician: Dustin Carrasco ? Case #: [id number] ? File Name: [id number] ? Catheterization Order Number: [id number] ? [facility] ? Final Report [place], [place] ? Patient Name: ? Loida Neisha ? ID#: ?[id number] ? : ?1970 ? Procedure Date: ? [...] procedure was Urgent. The indication for ?the technical laboratory asst visit is ACS greater than [...] nurse. ??Case time = 00:28. ?Dr. Dustin N Young, M.D. performed the coronary angiography and left heart ?catheterization. ? Dustin Carrasco M.D. ? Electronically Signed by: Dustin Carrasco M.D. ? Report Finalized: 04/18/2023 ??12:13 ? Report Last Ammended: 05/03/2023 ??07:49 ? Procedure Note Dustin Carrasco MD - 05/03/2023 [facility] Cardiac Catheterization/Intervention Report Patient Name: Loida Madrigal Procedure Date: 04/18/2023 A #: [id number] Primary Physician: Dustin Carrasco Case #: [id number] File Name: [id number] Catheterization Order Number: [id number] [facility] FinalReport [place], [place] Patient Name: Loida Madrigal ID#:[id number] :1970 Procedure Date: April 18, 2023 Case [...] patient was designated as ASA Class III. [facility]: [...] diagnostic procedure was Urgent. The indicationfor the technical laboratory asst visit is ACS greater than [...] units of heparin were administered. A total [id number] of Omnipaque were opened, 65cc of Omnipaque were administered [id number] of Omnipaque were wasted. Radiation: Fluoro time [...] 8:23 AM EST) UF Heparin 0.39 IU/mL [facility] Comment: Heparin (anti-Xa) levels [...] Resulting Agency Comment Spec In Lab Lloyd Maloney MD HEMATOLOGY ORDERABLE S Performing Organization Address City/[facility]/[place] [address] * Differential, Automated (04/18/2023 2:10 AM EST) Neutrophil % 51.4 % [facility] Neutrophil Absolute 3.43 1.70 - 6.10 x10(3)/[facility] LABORATORY Lymph % 33.8 % [facility] Lymphocytes Abs 2.2 0.9 - 3.2 x10(3)/[facility] LABORATORY Monocyte % 9.9 % [facility] Monocyte Abs 0.7 0.3 - 0.9 x10(3)/[facility] LABORATORY Eos % 3.9 % [facility] Eosinophils Abs 0.3 0.0 - 0.4 x10(3)/[facility] LABORATORY Basophil % 0.8 % [facility] Baso Absolute 0.0 0.0 - 0.1 x10(3)/[facility] LABORATORY Immature Gran % 0.20 % [facility] Comment: Immature granulocytes(IG's)percentage and absolute count will include metamyelocytes, myelocytes, and promyelocytes. Blood smears from CBCs yielding IG's will be scanned manually for concordance. If this scan disagrees with the automated IG or if promyelocytes are noted, a manual differential will be performed. Immature Gran Absolute 0.01 0.00 - 0.04 x10(3)/[facility] LAB[facility]AT[facility] Blood 04/18/2023 2:10 AM EST 04/18/2023 2:44 AM EST Narrative Resulting Agency Comment Spec In Lab Lloyd Maloney MD HEMATOLOGY ORDERABLE S Performing Organization Address City/[facility]/ZIP Co de Phone Number [facility] [place] [address] * Hemogram (04/18/2023 2:10 AM EST) White Blood Cell 6.7 4.0 - 9.5 x10(3)/[facility] LABORATORY Red Blood Cell 4.93 4.00 - 5.21 x10(6)/[facility] Hemoglobin 15.2 11.7 - 15.5 g/dL [facility] Hematocrit 44.9 35.7 - 45.8 % [facility] Mean Cell Volume 91.1 82.6 - 94.4 fL [facility] Mean Cell Hemoglobin 30.8 27.1 - 32.0 pg [facility] Mean Cell Hemoglobin Concentration 33.9 31.7 - 35.0 g/dL [facility] Platelet 233 145 - 357 x10(3)/[facility] LAB[facility]AT[facility] RDW Standard Deviation 42.0 37.0 - 46.0 fL [facility] RDW coefficient of variation 12.8 11.5 - 14.1 % [facility] Mean Platelet Volume 11.3 7.6 - 12.9 fL [facility] NRBC% auto 0.0 % [facility] NRBC Absolute 0.000 0.000 - 0.000 x10(3)/[facility] Blood 04/18/2023 2:10 AM EST 04/18/2023 2:44 AM EST Narrative Resulting Agency Comment Spec In Lab Lloyd Maloney MD HEMATOLOGY ORDERABLE S [facility] [place] [address] * Heparin (unfractionated) Level (04/18/2023 2:10 AM EST) UF Heparin 0.50 IU/mL [facility] Comment: Heparin (anti-Xa) levels should [...] Resulting Agency Comment Spec In Lab Lloyd Maloney MD HEMATOLOGY ORDERABLE S [facility] [place] [address] * (ABNORMAL) BMP w/fasting Glucose (04/18/2023 2:10 AM EST) Glucose Fasting 98 65 - 99 mg/dL [facility] Comment: ?Fasting* Glucose Interpretive Criteria Normal [...] of Diabetes Mellitus, Position Statement from the [employer]. ??Diabetes Care, Volume 33, Supplement 1, Mar 2009 Blood Urea Nitrogen 23(H) 8 - 18 mg/dL [facility] [facility] Creatinine 1.18 0.70 - 1.20 mg/dL [facility] Sodium 143 135 - 145 mmol/L [facility] Potassium 3.6 3.5 - 5.0 mmol/L [facility] Comment: Please note: ??Patients with WBC >100,000 may have falsely elevated Potassium levels. ??For accurate Potassium quantification in these patients send serum separator tube (gold top) for subsequent determinations. ??Contact the Clinical Chemistry Laboratory if there are any questions. Chloride 107 98 - 107 mmol/L [facility] Carbon Dioxide 24 22 - 31 mmol/L [facility] Anion Gap 12 5 - 15 mmol/L [facility] Calcium 9.2 8.5 - 10.5 mg/dL [facility] Est Glomerular Filtration Rate 55(L) >=60 mL/min/1. 73 m?? [facility] Comment: This patient's estimated GFR was [...] Knight MD CHEMISTRY ORDERABLES Performing Organization Address City/[facility] Co de Phone Number [facility] [place] [address] * Magnesium (04/18/2023 2:10 AM EST) Magnesium 1.02 0.69 - 1.07 mmol/L [facility] Blood 04/18/2023 2:10 AM EST 04/18/2023 2:44 AM EST Narrative Resulting Agency Comment Spec In Lab Ailyn Knight MD CHEMISTRY ORDERABLES Performing Organization Address City/[facility]/ZIP Co de Phone Number [facility] [place] [address] * LDL Cholesterol, Direct (04/18/2023 2:10 AM EST) LDL Cholesterol, Direct 105 mg/dL [facility] Comment: Lowest Risk: <100 mg/dL Lower Risk: 100-129 mg/dL Borderline High Risk: 130-159 mg/dL High Risk: 160-189 mg/dL Very High Risk: >yi=349 mg/dL Blood 04/18/2023 2:10 AM EST 04/18/2023 2:44 AM EST Narrative Resulting Agency Comment Spec In Lab Lloyd Maloney MD CHEMISTRY ORDERABLES Performing Organization Address [facility] Co de Phone Number [facility] [place] [address] * Hemoglobin A1c (04/18/2023 2:10 AM EST) Hemoglobin A1c 5.6 4.3 - 5.6 % [facility] Comment: Reference Range: 4.3 - 5.6% [...] Mellitus, Diabetes Care 2013; 36: Suppl. 1, S67-21 Estimated Average Glucose 115 mg/dL [facility] Blood 04/18/2023 2:10 AM EST 04/18/2023 2:44 AM EST Narrative Resulting Agency Comment Spec In Lab Lloyd Maloney MD CHEMISTRY ORDERABLES Performing Organization Address [facility] Co de Phone Number [facility] [place] [address] * Lipid Panel (Reflex Direct LDL) (04/18/2023 2:10 AM EST) Cholesterol, Total 173 mg/dL [facility] Comment: Lower Risk: <200 mg/dL Average Risk: 200-239 mg/dL Higher Risk: >wj=891 mg/dL Triglyceride 174 mg/dL [facility] Comment: Average Risk/Lower Risk: <150 mg/dL Borderline High Risk: 150-199 mg/dL High Risk: 200-499 mg/dL Very High Risk: >rq=483 mg/dL HDL Cholesterol 44 mg/dL [facility] Comment: Males: ?? Higher Risk: <40 mg/dL Females: ?? Higher Risk: <50 mg/dL LDL Cholesterol 94 mg/dL [facility] Comment: Lowest Risk: <100 mg/dL Lower Risk: 100-129 mg/dL Borderline High Risk: 130-159 mg/dL High Risk: 160-189 mg/dL Very High Risk: >mg=312 mg/dL Cholesterol/HDL Ratio 3.9 ratio [facility] Lipid Interpretation See Note [facility] Comment: Lipid management should be guided by a patient? s ASCVD risk, goals and preferences. ACC/AHA Guidelines recommend high intensity statin if clinical ASCVD or LDL greater than or equal to 190 mg/dL. http://Mattersight.ShowKit/CRR-SGY-Tqemhgsvr Adults aged 40-75 with LDL 70-189 mg/dL should have their 10 year ASCVD risk estimated with the ACC/AHA ASCVD risk furnace clerk http://tools.acc.org/IVCQF-Tukk-Svhgojyvd/ Statin should be discussed if risk greater [...] Resulting Agency Comment Spec In Lab Lloyd Maloney MD CHEMISTRY ORDERABLES [facility] [place] [address] * POCT Glucose (04/17/2023 7:44 PM EST) Glucose, POC 128 65 - 199 mg/dL [facility] Comment: Supplemental ranges: <140 mg/dL before meals <180 mg/dL all other times of the day Blood 04/17/2023 7:44 PM EST 04/17/2023 7:44 PM EST Ailyn Knight MD POINT OF CARE TEST O RDERABLES Performing Organization Address [facility] Co de Phone Number [facility] [place] [address] * (ABNORMAL) Heparin (unfractionated) Level (04/17/2023 6:01 PM EST) UF Heparin 1.14(Crit ical) IU/mL [facility] Comment: Critical Result called by ?Peter HERNANDEZ CRITICAL Results read back by: ? Marta [...] Resulting Agency Comment Spec In Lab Lloyd Maloney MD HEMATOLOGY ORDERABLE S Performing Organization Address [facility] Co de Phone Number [facility] [place] [address] * (ABNORMAL) Heparin (unfractionated) Level (04/17/2023 12:45 PM EST) UF Heparin 1.39(Crit ical) IU/mL [facility] Comment: Critical Result called by [...] Lab Ailyn Knight MD HEMATOLOGY ORDERABLE S [facility] [place] [address] * ECHO LMTD W CONTRAST W LMTD SPEC DOPP COLOR DOPP (04/17/2023 11:59 AM EST) EF 58 HEARTLAB SYSTEM Anatomical Region Laterality Modality Cardiac Other 04/17/2023 10:2 4 AM EST Narrative 04/17/2023 12:09 PM EST [address] [place] [address] ? Echocardiogram Report Name: LOIDA MADRIGAL ? Study Date: 04/17/2023 10:24 AMBP: 114/64 mmHg ? Patient Location: 4A : 1970 ? Height: 160 cm ? Account: [id number] Age: 53 yrs ? Weight: 98 kg Gender: Female ?BSA: 2.0 m2 Ordering Physician: LLOYD MALONEY Referring Physician: LLOYD MALONEY Performed By: HAIM Becerra Reason For [...] wall motion has increased. Procedure Limited - 72632. Image enhancement Optison was used for left [...] Note Jaspreet Kinsey MD - 04/17/2023 1 [place] [address] Echocardiogram Report Name: LOIDA MADRIGAL Study Date: 410:24 AMBP: 114/64 mmHg Patient Location: 4A : 1970 Height: 160 cm Account: [id number] Age: 53 yrs Weight: 98 kg Gender: Female BSA: 2.0 m2 Ordering Physician: LLOYD MALONEY Referring Physician: LLOYD MALONEY Performed By: HAIM Becerra Reason For [...] wall motion has increased. Procedure Limited - 04308. Image enhancement Optison was used for left [...] Dyskinetic 3-5moderate 5 - 6-14large Aneurysmal 15-16diffuse Lloyd Maloney MD ECHO ORDERABLES * (ABNORMAL) Heparin (unfractionated) Level (04/17/2023 6:43 AM EST) UF Heparin 1.41(Crit ical) IU/mL [facility] Comment: Critical Result called by ?? [...] Resulting Agency Comment Spec In Lab Lloyd Maloney MD HEMATOLOGY ORDERABLE S Performing Organization Address City/State/[facility] Co de Phone Number [facility] [place] [address] * (ABNORMAL) Troponin (04/17/2023 6:43 AM EST) Troponin-T, High Sensitivity 23(H) <=14 ng/L [facility] Comment: This patient's troponin T concentration [...] troponin value can be found in the [facility] Laboratory Test Catalog Troponin - [facility] Laboratory Test Catalog Reference: Fourth [place] Definition of Myocardial Infarction. Journal of the [place] College [employer] Cardiology 2018;72:4739-5550 Blood 04/17/2023 6:43 AM EST 04/17/2023 6:52 AM EST Narrative Resulting Agency Comment Spec In Lab Lloyd Maloney MD CHEMISTRY ORDERABLES Performing Organization Address City/[facility]/ZIP Co de Phone Number [facility] [place] [address] * EKG 12 Lead (04/17/2023 3:41 AM EST) Ventricular rate 47 BPM MUSE SYSTEM Atrial Rate 47 BPM MUSE SYSTEM P-R Interval 186 ms MUSE SYSTEM QRS Duration 90 ms MUSE SYSTEM Q-T Interval 578 ms MUSE SYSTEM QTC Calculated (Bezet) 511 ms MUSE SYSTEM Calculated P [place] 24 degrees MUSE SYSTEM Calculated R [place] 23 degrees MUSE SYSTEM Calculated T [place] 27 degrees MUSE SYSTEM INTERPRETATION Sinus bradycardia with Premature atrial complexes Possible Left atrial enlargement Possible Lateral infarct , age undetermined Prolonged QT Abnormal ECG When compared with ECG of 01-APR-2023 12:28, Premature atrial complexes are now Present Vent. rate has decreased BY ??33 BPM Nonspecific T wave abnormality, improved in Anterior leads Confirmed by MD Angelo Danette ([id number]) on 04/20/2023 8:28:40 PM MUSE SYSTEM 04/17/2023 3:41 AM EST 04/20/2023 8:28 PM EST Lloyd Maloney MD ECG ORDERABLES Performing Organization Address City/[facility]/ZIP Co de Phone Number MUSE SYSTEM * Differential, Automated (04/17/2023 3:33 AM EST) Neutrophil % 54.4 % [facility] Neutrophil Absolute 4.02 1.70 - 6.10 x10(3)/[facility] Lymph % 32.0 % [facility] Lymphocytes Abs 2.4 0.9 - 3.2 x10(3)/[facility] Monocyte % 8.7 % [facility] Monocyte Abs 0.6 0.3 - 0.9 x10(3)/[facility] Eos % 3.9 % [facility] Eosinophils Abs 0.3 0.0 - 0.4 x10(3)/[facility] Basophil % 0.7 % [facility] Baso Absolute 0.0 0.0 - 0.1 x10(3)/[facility] Immature Gran % 0.30 % [facility] Comment: Immature granulocytes(IG's)percentage and absolute count will include metamyelocytes, myelocytes, and promyelocytes. Blood smears from CBCs yielding IG's will be scanned manually for concordance. If this scan disagrees with the automated IG or if promyelocytes are noted, a manual differential will be performed. Immature Gran Absolute 0.02 0.00 - 0.04 x10(3)/[facility] Blood 04/17/2023 3:33 AM EST 04/17/2023 3:42 AM EST Narrative Resulting Agency Comment Spec In Lab Lloyd Maloney MD HEMATOLOGY ORDERABLE S [facility] [place] [address] * Hemogram (04/17/2023 3:33 AM EST) White Blood Cell 7.4 4.0 - 9.5 x10(3)/[facility] Red Blood Cell 4.79 4.00 - 5.21 x10(6)/[facility] Hemoglobin 14.8 11.7 - 15.5 g/dL [facility] Hematocrit 44.3 35.7 - 45.8 % [facility] Mean Cell Volume 92.5 82.6 - 94.4 fL [facility] Mean Cell Hemoglobin 30.9 27.1 - 32.0 pg [facility] Mean Cell Hemoglobin Concentration 33.4 31.7 - 35.0 g/dL [facility] Platelet 233 145 - 357 x10(3)/[facility] RDW Standard Deviation 43.4 37.0 - 46.0 fL [facility] RDW coefficient of variation 12.7 11.5 - 14.1 % [facility] Mean Platelet Volume 11.0 7.6 - 12.[address] [facility] NRBC% auto 0.0 % [facility] NRBC Absolute 0.000 0.000 - 0.000 x10(3)/mcL [facility] Blood 04/17/2023 3:33 AM EST 04/17/2023 3:42 AM EST Narrative Resulting Agency Comment Spec In Lab Lloyd Maloney MD HEMATOLOGY ORDERABLE S Performing Organization Address City/[facility]/ZIP Co de Phone Number [facility] [place] [address] * Sedimentation rate (04/17/2023 3:33 AM EST) Sedimentation Rate Automated 12 2 - 39 mm/hr [facility] Comment: Effective February 15, 2019 new capillary photometric technology has resulted in a change in reference ranges. It is recommended that each ESR result be reviewed with its own age appropriate reference range. Blood 04/17/2023 3:33 AM EST 04/17/2023 3:42 AM EST Narrative Resulting Agency Comment Spec In Lab Lloyd Maloney MD HEMATOLOGY ORDERABLE S Performing Organization Address City/[facility] Co de Phone Number [facility] [place] [address] * CRP, acute inflammation (04/17/2023 3:33 AM EST) C-Reactive Protein <3.0 <=4.9 mg/L [facility] Blood 04/17/2023 3:33 AM EST 04/17/2023 3:42 AM EST Narrative Resulting Agency Comment Spec In Lab Lloyd Maloney MD CHEMISTRY ORDERABLES Performing Organization Address City/[facility] Co de Phone Number [facility] [place] [address] * (ABNORMAL) Troponin (04/17/2023 3:33 AM EST) Troponin-T, High Sensitivity 24(H) <=14 ng/L [facility] Comment: This patient's troponin T concentration [...] troponin value can be found in the [facility] Laboratory Test Catalog Troponin - [facility] Test Catalog Reference: Fourth [place] Definition of Myocardial Infarction. Journal of the [employer] College of Cardiology 2018;72:[id number] Blood 04/17/2023 3:33 AM EST 04/17/2023 3:42 AM EST Narrative Resulting Agency Comment Spec In Lab Lloyd Maloney MD CHEMISTRY ORDERABLES [facility] [place] [address] * (ABNORMAL) APTT (04/17/2023 3:33 AM EST) Partial Thromboplastin Time 40(H) 25 - 37 sec [facility] Comment: The PTT is NOT appropriate for heparin monitoring. Use the Anti-Xa level for heparin monitoring (HEP UFH) or LMWH monitoring (HEP LMW). A PTT less than 37 seconds generally indicates adequate hemostasis. Blood 04/17/2023 3:33 AM EST 04/17/2023 3:42 AM EST Narrative Resulting Agency Comment Spec In Lab Lloyd Maloney MD HEMATOLOGY ORDERABLE S Performing Organization Address City/[facility] Co de Phone Number [facility] [place] [address] * (ABNORMAL) Prothrombin Time (04/17/2023 3:33 AM EST) Prothrombin Time 13.3(H) 9.4 - 12.[address] [facility] International Normalization Ratio 1.2 [facility] Comment: An INR <2.0 indicates [...] Resulting Agency Comment Spec In Lab Lloyd Maloney MD HEMATOLOGY ORDERABLE S Performing Organization Address City/[facility] Co de Phone Number [facility] [place] [address] * Hepatic Function Panel (04/17/2023 3:33 AM EST) Protein, Total 6.9 6.1 - 8.0 g/dL [facility] Albumin 4.2 3.2 - 5.2 g/dL [facility] Aspartate Aminotransferase Not Perf 0 - 30 [facility] Comment: Unable to quantitate due to sample hemolysis. ??Sample redraw suggested. Called by: Danny Bowles, Read back by: Nyla Cassidy, Date/Time:04/17/23 05:06. Alanine Aminotransferase 17 0 - 30 unit/L [facility] Alkaline Phosphatase 59 35 - 105 unit/L [facility] Bilirubin, Total 0.4 0.2 - 1.3 mg/dL [facility] Bilirubin, Direct 0.1 0.0 - 0.3 mg/dL [facility] Blood 04/17/2023 3:33 AM EST 04/17/2023 3:42 AM EST Narrative Resulting Agency Comment Spec In Lab Lloyd Maloney MD CHEMISTRY ORDERABLES Performing Organization Address City/[facility]/ZIP Co de Phone Number [facility] [place] [address] * (ABNORMAL) pro-Brain Natriuretic Peptide (04/17/2023 3:33 AM EST) NT-proBNP 867(H) <=124 pg/mL [facility] Blood 04/17/2023 3:33 AM EST 04/17/2023 3:42 AM EST Narrative Resulting Agency Comment Spec In Lab Lloyd Maloney MD CHEMISTRY ORDERABLES Performing Organization Address [facility] Co de Phone Number [facility] [place] [address] * (ABNORMAL) TSH (04/17/2023 3:33 AM EST) Thyroid Stimulating Hormone 5.93(H) 0.27 - 4.20 mcIU/mL [facility] Comment: Reference Interval (mcIU/mL): Females: ??First Trimester: 0.23-3.88 ??Second Trimester: 0.22-3.90 ??Third Trimester: 0.44-4.66 Blood 04/17/2023 3:33 AM EST 04/17/2023 3:42 AM EST Narrative Resulting Agency Comment Spec In Lab Lloyd Maloney MD CHEMISTRY ORDERABLES Performing Organization Address City/[facility] Co de Phone Number [facility] [place] [address] * Phosphorus (04/17/2023 3:33 AM EST) Phosphorus 4.1 2.5 - 4.5 mg/dL [facility] Blood 04/17/2023 3:33 AM EST 04/17/2023 3:42 AM EST Narrative Resulting Agency Comment Spec In Lab Lloyd Maloney MD CHEMISTRY ORDERABLES [facility] [place] [address] * Magnesium (04/17/2023 3:33 AM EST) Magnesium 0.99 0.69 - 1.07 mmol/L [facility] Blood 04/17/2023 3:33 AM EST 04/17/2023 3:42 AM EST Narrative Resulting Agency Comment Spec In Lab Lloyd Maloney MD CHEMISTRY ORDERABLES [facility] [place] [address] * (ABNORMAL) Basic Metabolic Panel (non-fasting) (04/17/2023 3:33 AM EST) Glucose 89 65 - 199 mg/dL [facility] Comment:Diabetes: >=200 mg/d L plus symptoms Blood Urea Nitrogen 19(H) 8 - 18 mg/dL [facility] Creatinine 1.19 0.70 - 1.20 mg/dL [facility] Sodium 141 135 - 145 mmol/L [facility] Potassium 4.0 3.5 - 5.0 mmol/L [facility] Comment: Please note: ??Patients with WBC >100,000 may have falsely elevated Potassium levels. ??For accurate Potassium quantification in these patients send serum separator tube (gold top) for subsequent determinations. ??Contact the Clinical Chemistry Laboratory if there are any questions. Chloride 106 98 - 107 mmol/L [facility] Carbon Dioxide 22 22 - 31 mmol/L [facility] Anion Gap 13 5 - 15 mmol/L [facility] Calcium 9.4 8.5 - 10.5 mg/dL [facility] Est Glomerular Filtration Rate 54(L) >=60 mL/min/1. 73 m?? [facility] Comment: This patient's estimated GFR was [...] Resulting Agency Comment Spec In Lab Lloyd Maloney MD CHEMISTRY ORDERABLES [facility] [place] [address] * Film Library- Storage Only CT Chest [...] 08 (Given - Provider: Charity Jackson RN) 922 [...] 810 (Given - Provider: Charity Jackson RN) 09 [...] documented as of this encounter Care Teams Liturgical Music Director Relationship Specialty Start Date End Date Polo Pearce PA [address] [place] [address] PCP - General Internal Medicine 06/09/21 documented as of this encounter
--- OUTSIDE RECORDS SUMMARY | 2023-10-20 19:57 | XMS_ITS | Encounter Summary ---
Author Organization [facility] [place] [address] Care Team Providers Care Event Services Manager Name Role Phone Polo Pearce Primary Care Provider [phone] Reason for Visit * Reason Onset Date Comments Post Procedure Call 04/08/2023 Encounter Details Date Type Department Care Team (Late st Contact Info) Description 04/08/2023 Notes Only Cardiology at [address] [phone] Mary Motta, RN Post Procedure Call Social History Tobacco Use Types Packs/Day Years Used Date Smoking Tobacco: Never Smokeless Tobacco: Never Alcohol Use Standard Drinks/Week Comments Never 0 (1 standard drink = 0.6 oz pur e alcohol) [facility] Utilities Answer Date Recorded In the past 12 months has e [employer], gas, oil, or water [employer] threatened to shut off services in your [...] with Dr. Tovar in 1-[address] [facility] Catheter Insertion Area Care - You may [...] of any new medications initiated at the [facility]. The patient should be aware and informed [...] his/her physician or the Cardiac Electrophysiology Service ([phone]). documented in this encounter Plan of Treatment Upcoming Encounters Date Type Department Care Team (Late st Contact Info) Description 10/21/2023 10:30 AM EDT Hospital Encounter [place] [address] [place] [address] 10/21/2023 11:30 AM EDT Appointment [place] [address] Mary Reyes MOLDING UTILITY WORKER [facility] [place] [address] 10/21/2023 12:30 PM EDT Appointment [place] [address] [place] [address] 10/21/2023 1:30 PM EDT Appointment [place] [address] Mary Reyes MOLDING UTILITY WORKER [facility] [place] [address] 10/21/2023 2:30 PM EDT Appointment [place] [address] Mary Reyes MOLDING UTILITY WORKER [facility] [place] [address] 10/26/2023 4:00 PM EDT Office Visit Cardiology at [address] [phone] Jaspreet Kinsey MD [facility] [place] [address] 10/28/2023 9:00 AM EDT Office [place] [address] 10/29/2023 10:00 AM EDT Clinical [place] [address] 10/29/2023 10:15 AM EDT Procedure [place] [address] 11/01/2023 5:00 PM EDT Office [place] [address] Selene Browning, PhD [facility] [place] [address] 11/22/2023 4:40 PM EDT Office Visit Cardiology at [address] [phone] Porsha Mcdaniels MD [facility] [place] [address] 12/13/2023 10:00 AM EDT Clinical [place] [phone] Lucero Romero, ALVA [facility] [place] [address] documented as of this encounter Visit Diagnoses Not on filedocumented in this encounter Care Teams Event Services Manager Relationship Specialty Start Date End Date Polo Pearce PA [address] [place] [address] PCP - General Internal Medicine 06/09/21 documented as of this encounter
--- OUTSIDE RECORDS SUMMARY | 2023-10-20 19:57 | XMS_ITS | Encounter Summary ---
Author Organization [facility] Address [facility] [place] [address] Care Team Providers Care Calculus Teacher Name Role Phone Polo Pearce Primary Care Provider [phone] Encounter Details Date Type Department Care Team (Late st Contact Info) Description 02/16/2023 Telephone Cardiology at [address] [place] [place] [address] Jaspreet Kinsey MD [facility] [place] [address] Social History Tobacco Use Types Packs/Day Years Used Date Smoking Tobacco: Never Smokeless Tobacco: Never Alcohol Use Standard Drinks/Week Comments Never 0 (1 standard drink = 0.6 oz pur e alcohol) [facility] Utilities Answer Date Recorded In the past 12 months has [employer], gas, oil, or water [employer] threatened to shut off services in your [...] her problems. Please call her back @ [phone] documented in this encounter Plan of Treatment Upcoming Encounters Date Type Department Care Team (Late st Contact Info) Description 10/21/2023 10:30 AM EDT Hospital En[place] [address] Mary Reyes [facility] [place] [place] [address] 10/21/2023 11:30 AM EDT Appointment [place] [address] Mary Reyes [facility] [place] [address] 10/21/2023 12:30 PM EDT Appointment [place] [address] Mary Reyes [facility] [place] [address] 10/21/2023 1:30 PM EDT Appointment [place] [address] [place] [address] 10/21/2023 2:30 PM EDT Appointment [place] [address] Mary Reyes [facility] [place] [address] 10/26/2023 4:00 PM EDT Office Visit Cardiology at [address] [phone] Jaspreet Kinsey MD [facility] [place] [address] 10/28/2023 9:00 AM EDT Office [place] [address] 10/29/2023 10:00 AM EDT Clinical [place] [address] 10/29/2023 10:15 AM EDT Procedure [place] [address] 11/01/2023 5:00 PM EDT Office Visit [place] [address] Selene Browning, PhD [facility] [place] [address] 11/22/2023 4:40 PM EDT Office Visit Cardiology at [address] [phone] Porsha Mcdaniels MD [facility] [place] [address] 12/13/2023 10:00 AM EDT Clinical Support [place] [address] Lucero Romero, ALVA [facility] [place] [address] documented as of this encounter Visit Diagnoses Not on filedocumented in this encounter Care Teams Calculus Teacher Relationship Specialty Start Date End Date Polo Pearce PA [address] [place] [address] PCP - General Internal Medicine 06/09/21 documented as of this encounter
--- OUTSIDE RECORDS SUMMARY | 2023-10-20 19:57 | XMS_ITS | Encounter Summary ---
Author Organization [facility] Address [facility] [place] [address] Care Team Providers Care Cd Mixer Name Role Phone Polo Pearce Primary Care Provider [phone] Encounter Details Date Type Department Care Team (Latest Contact Info) Description 03/22/2023 Travel Social History Tobacco Use Types Packs/Day Years Used Date Smoking Tobacco: Never Smokeless Tobacco: Never Alcohol Use Standard Drinks/Week Comments Never 0 (1 standard drink = 0.6 oz pur e alcohol) [facility] Utilities Answer Date Recorded In the [...] AM EDT Hospital En[place] [phone] [place] [address] 10/21/2023 11:30 AM EDT Appointment [place] [address] [place] [address] 10/21/2023 12:30 PM EDT Appointment [place] [address] [place] [address] 10/21/2023 1:30 PM EDT Appointment [place] [phone] [place] [address] 10/21/2023 2:30 PM EDT Appointment [place] [phone] Mary Reyes APRN [facility] [place] [address] 10/26/2023 4:00 PM EDT Office Visit Cardiology at [address] [phone] Jaspreet Kinsey MD [facility] [place] [address] 10/28/2023 9:00 AM EDT Office Visit [place] [address] 10/29/2023 10:00 AM EDT Clinical Support [place] [address] 10/29/2023 10:15 AM EDT Procedure visit [place] [address] 11/01/2023 5:00 PM EDT Office Visit [place] [phone] Selene Browning, PhD [facility] [place] [address] 11/22/2023 4:40 PM EDT Office Visit Cardiology at [address] [phone] Porsha Mcdaniels MD [facility] [place] [address] 12/13/2023 10:00 AM EDT Clinical Support [place] [phone] [facility] [place] [address] documented as of this encounter Visit Diagnoses Not on filedocumented in this encounter Care Teams Cd Mixer Relationship Specialty Start Date End Date Polo Pearce PA [address] [facility] 1 [place] [address] PCP - General Internal Medicine 06/09/21 documented as of this encounter
--- OUTSIDE RECORDS SUMMARY | 2023-10-20 19:57 | XMS_ITS | Encounter Summary ---
Author Organization [facility] [place] [address] Care Team Providers Care Electric Range Servicer Name Role Phone Polo Pearce Primary Care Provider [phone] Encounter Details Date Type Department Care Team (Late st Contact Info) Description 04/16/2023 Telephone Cardiology at [address] [address] Vaishnavi Pratt MD [facility] [place] [address] Social History Tobacco Use Types Packs/Day Years Used Date Smoking Tobacco: Never Smokeless Tobacco: Never Alcohol Use Standard Drinks/Week Comments Never 0 (1 standard drink = 0.6 oz pur e alcohol) [facility] Utilities Answer Date Recorded In the past 12 months has [employer], gas, oil, or water [employer] threatened to shut off services in your [...] AM EDT Hospital Encounter [place] [phone] [place] [address] 10/21/2023 11:30 AM EDT Appointment [place] [phone] Mary Reyes APRN [facility] [address] 10/21/2023 12:30 PM EDT Appointment [place] [phone] [place] [address] 10/21/2023 1:30 PM EDT Appointment Nuclear Medicine at [place] [phone] Mary Reyes [place] [address] 10/21/2023 2:30 PM EDT Appointment [place] [address] [place] [address] 10/26/2023 4:00 PM EDT Office Visit Cardiology at [address] [address] Jaspreet Kinsey MD [facility] [place] [address] 10/28/2023 9:00 AM EDT Office [place] [address] 10/29/2023 10:00 AM EDT Clinical [place] [address] 10/29/2023 10:15 AM EDT Procedure [place] [address] 11/01/2023 5:00 PM EDT Office [place] [address] Selene Browning, PhD [facility] [place] [address] 11/22/2023 4:40 PM EDT Office Visit Cardiology at [address] [phone] Porsha Mcdaniels MD [facility] [place] [address] 12/13/2023 10:00 AM EDT Clinical [place] [phone] [facility] [place] [address] documented as of this encounter Visit Diagnoses [...] documented as of this encounter Care Teams Electric Range Servicer Relationship Specialty Start Date End Date Polo Pearce PA [address] [place] [address] PCP - General Internal Medicine 06/09/21 documented as of this encounter
--- OUTSIDE RECORDS SUMMARY | 2023-10-20 19:57 | XMS_ITS | Encounter Summary ---
Author Organization [facility] [place] [place] [address] Care Team Providers Care Sales Director Name Role Phone Polo Pearce Primary Care Provider [phone] Reason for Visit * Reason Onset Date Comments Follow-up 04/08/2023 Encounter Details Date Type Department Care Team (Late st Contact Info) Description 04/08/2023 Telephone Cardiology at [address] [phone] aMry Motta, RN Follow-up Social History Tobacco Use Types Packs/Day Years Used Date Smoking Tobacco: Never Smokeless Tobacco: Never Alcohol Use Standard Drinks/Week Comments Never 0 (1 standard drink = 0.6 oz pur e alcohol) [facility] Utilities Answer Date Recorded In the past 12 months has e [employer], gas, oil, or water [employer] threatened to shut off services in your [...] AM EDT Hospital Encounter [place] [phone] Mary Reyes [facility] [place] [address] 10/21/2023 11:30 AM EDT Appointment [place] [phone] Mary Reyes [facility] [place] [address] 10/21/2023 12:30 PM EDT Appointment [place] [phone] Mary Reyes [facility] [place] [address] 10/21/2023 1:30 PM EDT Appointment [place] [phone] Mary Reyes [facility] [place] [address] 10/21/2023 2:30 PM EDT Appointment [place] [phone] Mary Reyes [facility] [place] [address] 10/26/2023 4:00 PM EDT Office Visit Cardiology at [address] [phone] Jaspreet Kinsey MD [facility] [place] [address] 10/28/2023 9:00 AM EDT Office [place] [address] 10/29/2023 10:00 AM EDT Clinical [place] [address] 10/29/2023 10:15 AM EDT Procedure [place] [address] 11/01/2023 5:00 PM EDT Office Visit Gastroenterology at [place] [phone] Selene Browning, PhD [facility] [place] [address] 11/22/2023 4:40 PM EDT Office Visit Cardiology at [address] [phone] Porsha Mcdaniels MD [facility] [place] [address] 12/13/2023 10:00 AM EDT Clinical Support [place] [phone] Lucero Romero, ALVA [facility] [place] [address] documented as of this encounter Visit Diagnoses Not on filedocumented in this encounter Care Teams Sales Director Relationship Specialty Start Date End Date Polo Pearce PA Sb [address] [place] [address] PCP - General Internal Medicine 06/09/21 documented as of this encounter
--- OUTSIDE RECORDS SUMMARY | 2023-10-20 19:57 | XMS_ITS | Encounter Summary ---
[place] [address] Care Team Providers Care Channel Lip Stiffener Insoles Name Role Phone Polo Pearce Primary Care Provider [phone] Reason for Visit * Auth/Cert (Routine) Specialty [...] THER/DX INTERVENT ELECTROPHYSIOLOGY PROCEDURE Jed Tovar MD [facility] [place] [address] [place] Referral ID Status Reason Start Date Expiration Date Visits Re quested Visits Authorized [id number] 1 1 Encounter Details Date Type Department Care Team (Latest Contact Info) Description 04/01/2023 6:20 AM EST - 04/01/2023 4:00 PM EST Hospital Encounter [place] [address] [facility] [place] [address] SVT (supraventricular tachycardia); PAF (paroxysmal atrial fibrillation) Discharge Disposition: Home Social History Tobacco Use Types Packs/Day Years Used Date Smoking Tobacco: Never Smokeless Tobacco: Never Alcohol Use Standard Drinks/Week Comments Never 0 (1 standard drink = 0.6 oz pur e alcohol) [facility] Utilities Answer Date Recorded In the past 12 months has th e [employer], gas, oil, or water company threatened to [...] Indira Roque Patient Age: 53 y.o. Language: Panamanian Race: White Ethnicity: Not nor Admit date: [...] Cardiac Electrophysiology - Weekends and holidays call [phone]; ask for private branch exchange installer naval gunfire liaison officer. Discharge Diagnoses (Hospital Problems) and Secondary Diagnoses [...] 06/13/2021 in the context of hospitalization at [facility] for NSTEMI. A rapidly conducted [...] days. Refills: 0 fluticasone propionate 50 mcg/actuation Schaller, Suspension Commonly known as: Flonase 1 spray [...] 3:00 PM Jaspreet Kinsey MD Cardiology at [place] Arrive at: [facility] [address] [phone] Discharge References/Attachments None documented in this encounter [...] as needed. fluticasone propionate (FLONASE) 50 mcg/actuation Schaller, Suspension 1 spray by Each Nare route [...] MD [facility] [place] [address] Attending Provider: Jed Tovar MD Planned Procedure: EP study and SVT ablation Background and rationale for the procedure: Indira Roque is a 53 y.o. woman with paroxysmal atrial fibrillation, heart failure with preserved EF, and chronic angina with non-obstructive ASCVD but significant calcifications per coronary CTA. She has documented sustained narrow complex tachycardia on 06/13/2021 in the context of hospitalization at [facility] for NSTEMI. A rapidly conducted [...] as needed. fluticasone propionate (FLONASE) 50 mcg/actuation Schaller, Suspension 1 spray by Each Nare route [...] in agreement. Dr. Jed Tovar, electrophysiology attending ([id number]) documented in this encounter Procedure Notes * [...] jittery Break coverage by Luiza Peña RN [phone]. PACU D/C criteria met at 1300 1345 Hand off to ERWIN GomezP documented in this encounter Miscellaneous Notes * Brief Op Note - Jed Tovar MD - 04/01/2023 11:07 AM EST Brief Operative Note Patient Name: Indira Roque : [id number] MR#: [id number] Case Date: 04/01/2023 Surgeon: Surgeon(s) and Role: [...] AM EDT Hospital Encounter [place] [address] Mary Reyes [place] [address] 10/21/2023 11:30 AM EDT Appointment [place] [address] Mary Reyes [place] [address] 10/21/2023 12:30 PM EDT Appointment [place] [address] Mary Reyes [place] [address] 10/21/2023 1:30 PM EDT Appointment [place] [address] [facility] [place] [address] 10/21/2023 2:30 PM EDT Appointment [place] [address] [facility] [place] [address] 10/26/2023 4:00 PM EDT Office Visit Cardiology at [address] [phone] [facility] [place] [address] 10/28/2023 9:00 AM EDT Office Visit [place] [address] 10/29/2023 10:00 AM EDT Clinical Support [place] [address] 10/29/2023 10:15 AM EDT Procedure visit [place] [address] 11/01/2023 5:00 PM EDT Office Visit Gastroenter[place] [phone] Selene Browning, PhD [facility] [address] 11/22/2023 4:40 PM EDT Office Visit Cardiology at [address] [phone] [address] [facility] [place] [address] 12/13/2023 10:00 AM EDT Clinical Support G[place] [phone] Lucero Romero, RD [facility] [place] [place] [address] documented as of this encounter Procedures Procedure [...] (Bezet) 519 ms MUSE SYSTEM Calculated P [place] 44 degrees MUSE SYSTEM Calculated R [place] 41 degrees MUSE SYSTEM Calculated T [place] 36 degrees MUSE SYSTEM INTERPRETATION Normal sinus [...] not included. ELECTROPHYSIOLOGY STUDY AND SVT ABLATION Storage Specialist: Jed Tovar MD Fellow: Jaspreet Grimm MD Referring: Jaspreet Kinsey MD Patient History: Indira Roque is a 53 y.o. woman with one episode of paroxysmal atrial fibrillation, heart failure with preserved EF, and chronic angina with non-obstructive ASCVD but significant calcifications per coronary CTA. She has documented sustained narrow complex tachycardia on 06/13/2021 in the context of hospitalization at [facility] for NSTEMI. A rapidly conducted [...] Intervals (ms) Interval Name Interval length (milliseconds) PA 260 QRS 97 QT 531 AH 159 HV 47 Refractory Periods Atrial ERP 700/300 AV Makayla Conduction AV Wenckebach 360 ms Retrograde Wenckebach 470 ms Medication Summary (drug, amount, route) Isoproterenol at 2-4 mcg/kg/min Radiology Summary Total Fluoro time (min) 1.4 DAP (cGycm2) 53 Findings: 1. The baseline EKG revealed sinus rhythm with prolonged PA and long AH, but otherwise normal intervals [...] with Dr. Tovar in 1-3 ??months at [facility] 5. 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 Procedures performed: SVT ablation (cpt 63557); induce post IV drug (cpt 46647-24-71) I have read, edited and approve of this report: Jed Tovar MD S Cardiac Electrophysiology 04/03/2023 11:10 AM Jed Tovar MD EP PROCEDURE ORDERAB LES * EKG 12 Lead (04/01/2023 7:31 AM EST) [facility] Signature Ventricular rate 59 BPM MUSE SYSTEM Atrial Rate 59 BPM MUSE SYSTEM P-R Interval 190 ms MUSE SYSTEM QRS Duration 84 ms MUSE SYSTEM Q-T Interval 528 ms MUSE SYSTEM QTC Calculated (Bezet) 522 ms MUSE SYSTEM Calculated P [place] 50 degrees MUSE SYSTEM Calculated R [place] 69 degrees MUSE SYSTEM Calculated T [place] 16 degrees MUSE SYSTEM INTERPRETATION Sinus bradycardia Lateral infarct , age undetermined Prolonged QT Abnormal ECG When compared with ECG of 22-MAR-2023 16:45, (unconfirmed) T wave inversion no longer evident in Anterior leads QT has lengthened I personally reviewed the tracing and edited the fellows interpretation Confirmed by fellow MD Nas, Ciro ([id number]) on 04/01/2023 3:35:42 PM Confirmed by MD YOO SALVATORE ([id number]) on 04/02/2023 8:28:26 AM MUSE SYSTEM 04/01/2023 7:31 AM EST 04/02/2023 8:28 AM EST Jed Tovar MD ECG ORDERABLES MUSE SYSTEM * Differential, Automated (04/01/2023 7:20 AM EST) Neutrophil % 53.2 % [facility] Neutrophil Absolute 3.51 1.70 - 6.10 x10(3)/[facility] Lymph % 32.4 % [facility] Lymphocytes Abs 2.1 0.9 - 3.2 x10(3)/[facility] Monocyte % 8.7 % [facility] Monocyte Abs 0.6 0.3 - 0.9 x10(3)/[facility] Eos % 4.6 % [facility] Eosinophils Abs 0.3 0.0 - 0.4 x10(3)/[facility] Basophil % 0.8 % [facility] Baso Absolute 0.0 0.0 - 0.1 x10(3)/[facility] Immature Gran % 0.30 % [facility] Comment: Immature granulocytes(IG's)percentage and absolute count will include metamyelocytes, myelocytes, and promyelocytes. Blood smears from CBCs yielding IG's will be scanned manually for concordance. If this scan disagrees with the automated IG or if promyelocytes are noted, a manual differential will be performed. Immature Gran Absolute 0.02 0.00 - 0.04 x10(3)/[facility] Blood 04/01/2023 7:20 AM EST 04/01/2023 7:33 AM EST Narrative Resulting Agency Comment Spec In Lab Jed Tovar MD HEMATOLOGY ORDERABLE S [facility] [place] [address] * (ABNORMAL) Hemogram (04/01/2023 7:20 AM EST) White Blood Cell 6.6 4.0 - 9.5 x10(3)/mc L [facility] Red Blood Cell 4.56 4.00 - 5.21 x10(6)/mc L [facility] Hemoglobin 14.1 11.7 - 15.5 g/dL [facility] Hematocrit 43.1 35.7 - 45.8 % [facility] Mean Cell Volume 94.5(H) 82.6 - 94.4 fL [facility] Mean Cell Hemoglobin 30.9 27.1 - 32.0 pg [facility] Mean Cell Hemoglobin Concentration 32.7 31.7 - 35.0 g/dL [facility] Platelet 229 145 - 357 x10(3)/mc L [facility] RDW Standard Deviation 44.7 37.0 - 46.0 fL [facility] RDW coefficient of variation 12.7 11.5 - 14.1 % [facility] Mean Platelet Volume 11.7 7.6 - 12.9 fL [facility] NRBC% auto 0.0 % [facility] NRBC Absolute 0.000 0.000 - 0.000 x10(3)/ L [facility] Blood 04/01/2023 7:20 AM EST 04/01/2023 7:33 AM EST Narrative Resulting Agency Comment Spec In Lab Jed Tovar MD HEMATOLOGY ORDERABLE S [facility] [place] [address] * (ABNORMAL) BMP w/fasting Glucose (04/01/2023 7:20 AM EST) Glucose Fasting 99 65 - 99 mg/dL [facility] Comment: ?Fasting* Glucose Interpretive Criteria Normal [...] of Diabetes Mellitus, Position Statement from the [place] [employer]. ??Diabetes Care, Volume 33, Supplement 1, Mar 2009 Blood Urea Nitrogen 22(H) 8 - 18 mg/dL [facility] Creatinine 1.10 0.70 - 1.20 mg/dL [facility] Sodium 139 135 - 145 mmol/L [facility] Potassium 4.2 3.5 - 5.0 mmol/L [facility] Comment: Please note: ??Patients with WBC >100,000 may have falsely elevated Potassium levels. ??For accurate Potassium quantification in these patients send serum separator tube (gold top) for subsequent determinations. ??Contact the Clinical Chemistry Laboratory if there are any questions. Chloride 108(H) 98 - 107 mmol/L [facility] Carbon Dioxide 22 22 - 31 mmol/L [facility] Anion Gap 9 5 - 15 mmol/L [facility] Calcium 9.6 8.5 - 10.5 mg/dL [facility] Est Glomerular Filtration Rate 60 >=60 mL/min/1. 73 m?? [facility] Comment: This patient's estimated GFR was [...] In Lab Jed Tovar MD CHEMISTRY ORDERABLES [facility] [place] [address] documented in this encounter Visit Diagnoses Diagnosis [...] Routine documented in this encounter Care Teams Channel Lip Stiffener Insoles Relationship Specialty Start Date End Date Polo Pearce PA [address] [place] [address] PCP - General Internal Medicine 06/09/21 documented as of this encounter
--- OUTSIDE RECORDS SUMMARY | 2023-10-20 19:58 | XMS_ITS | Encounter Summary ---
Author Organization [facility] Address [facility] [place] [address] Care Team Providers Care Digital Marketer Name Role Phone Polo Pearce Primary Care Provider [phone] Reason for Visit * Reason Comments Congestive Heart Failure HFpEF Atrial Fibrillation Encounter Details Date Type Department Care Team (Late st Contact Info) Description 11/17/2022 9:00 AM EDT Office Visit Cardiology at [address] [address] Jaspreet Kinsey MD [facility] [place] [address] Paroxysmal atrial fibrillation; Heart failure with preserved [...] In the interim, she was seen at [facility] vascular [facility] and whilst having an episode [...] 30 DAYS fluticasone propionate (FLONASE) 50 mcg/actuation [place], Suspension 1 spray, Each Nare, DAILY gabapentin [...] upper lobe. Started on eliquis 08/2022 TTE ([facility]): normal bi-v s/f. No significant VHD (HFpEF) heart failure with preserved ejection fraction 05/2021: subacute, presented to [facility] with RUQ pain, weight gain, [...] AM EDT Hospital Encounter [place] [phone] Mary Reyes [facility] [place] [address] 10/21/2023 11:30 AM EDT Appointment [place] [phone] Mary Reyes [facility] [place] [address] 10/21/2023 12:30 PM EDT Appointment [place] [phone] Mary Reyes [facility] [place] [address] 10/21/2023 1:30 PM EDT Appointment [place] [phone] Mary Reyes RECYCLING TECH [facility] [place] [address] 10/21/2023 2:30 PM EDT Appointment [place] [address] Mary Reyes [facility] [place] [address] 10/26/2023 4:00 PM EDT Office Visit Cardiology at [address] [phone] Jaspreet Kinsey MD [facility] [place] [address] 10/28/2023 9:00 AM EDT Office [place] [address] 10/29/2023 10:00 AM EDT Clinical [place] [address] 10/29/2023 10:15 AM EDT Procedure [place] [address] 11/01/2023 5:00 PM EDT Office [place] [phone] Selene Browning, PhD [facility] [place] [address] 11/22/2023 4:40 PM EDT Office Visit Cardiology at [address] [phone] Porsha Mcdaniels MD [facility] [place] [address] 12/13/2023 10:00 AM EDT Clinical Support [place] [address] [facility] [address] documented as of this encounter Visit Diagnoses Diagnosis Paroxysmal atrial fibrillation Atrial fibrillation Heart failure with preserved ejection fraction, unspecified HF chronicity Pulmonary embolism without acute cor pulmonale, unspecified chronicity, unspecified pulmonary embolism type Chronic heart failure with preserved ejection fraction documented in this encounter Care Teams Digital Marketer Relationship Specialty Start Date End Date Polo Pearce PA [address] [place] [address] PCP - General Internal Medicine 06/09/21 documented as of this encounter
--- OUTSIDE RECORDS SUMMARY | 2023-10-20 19:58 | XMS_ITS | Encounter Summary ---
Author Organization [facility] [place] [address] Care Team Providers Care Puppy Sitter Name Role Phone Polo Pearce Primary Care Provider [phone] Encounter Details Date Type Department Care Team (Late st Contact Info) Description 09/26/2022 [place] [address] Paulo Ramachandran Jr., MD [facility] [place] [address] Social History Tobacco Use Types Packs/Day Years [...] vasospasm rather than a true Type I [place], however, given degree of troponin rise and [...] AM EDT Hospital En[place] [address] Mary Reyes APRN [facility] [place] [address] 10/21/2023 11:30 AM EDT Appointment [place] [phone] Mary Reyes APRN [facility] [place] [address] 10/21/2023 12:30 PM EDT Appointment [place] [phone] Mary Reyes APRN [facility] [place] [address] 10/21/2023 1:30 PM EDT Appointment [place] [phone] [place] [address] 10/21/2023 2:30 PM EDT Appointment [place] [phone] [place] [address] 10/26/2023 4:00 PM EDT Office Visit Cardiology at [address] [address] Jaspreet Kinsey MD [facility] [place] [address] 10/28/2023 9:00 AM EDT Office [place] [address] 10/29/2023 10:00 AM EDT Clinical [place] [address] 10/29/2023 10:15 AM EDT Procedure [place] [address] 11/01/2023 5:00 PM EDT Office Visit [place] [address] Selene Browning, PhD [facility] [place] [address] 11/22/2023 4:40 PM EDT Office Visit Cardiology at [address] [address] Porsha Mcdaniels MD [facility] [place] [address] 12/13/2023 10:00 AM EDT Clinical Support Gastroenterology at [facility] [place] [address] [facility] [place] [address] documented as of this encounter Visit Diagnoses Not on filedocumented in this encounter Care Teams Puppy Sitter Relationship Specialty Start Date End Date Polo Pearce PA [address] [place] [address] PCP - General Internal Medicine 06/09/21 documented as of this encounter
--- OUTSIDE RECORDS SUMMARY | 2023-10-20 19:58 | XMS_ITS | Encounter Summary ---
Author Organization [facility] Address [facility] [place] [address] Care Team Providers Care Campus Receptionist Name Role Phone Polo Pearce Primary Care Provider [phone] Encounter Details Date Type Department Care Team (Late st Contact Info) Description 10/20/2022 Telephone Cardiology at [address] [place] [address] Jaspreet Kinsey MD [facility] [place] [address] Social History Tobacco Use Types Packs/Day Years [...] to update office that she was at [facility] this morning as a follow [...] AM EDT Hospital Encounter [place] [address] Mary Reyes [place] [address] 10/21/2023 11:30 AM EDT Appointment [place] [address] Mary Reyes [place] [address] 10/21/2023 12:30 PM EDT Appointment [place] [address] [place] [address] 10/21/2023 1:30 PM EDT Appointment [place] [address] Mary Reyes APRN [facility] [place] [address] 10/21/2023 2:30 PM EDT Appointment Nuclear Medicine at [place] [phone] Mary Reyes [place]N [facility] [place] [address] 10/26/2023 4:00 PM EDT Office Visit Cardiology at [address] [phone] Jaspreet Kinsey MD [facility] [address] 10/28/2023 9:00 AM EDT Office [place] [address] 10/29/2023 10:00 AM EDT Clinical [place] [address] 10/29/2023 10:15 AM EDT Procedure [place] [address] 11/01/2023 5:00 PM EDT Office Visit Gastroenterology at [place] [phone] Selene Browning, PhD [facility] [place] [address] 11/22/2023 4:40 PM EDT Office Visit Cardiology at [address] [phone] Porsha Mcdaniels MD [facility] [address] 12/13/2023 10:00 AM EDT Clinical Support [place] [address] Lucero Romero, [facility] [place] [address] documented as of this encounter Visit Diagnoses Not on filedocumented in this encounter Care Teams Campus Receptionist Relationship Specialty Start Date End Date Polo Pearce PA [facility] [address] [place] [address] PCP - General Internal Medicine 06/09/21 documented as of this encounter
--- OUTSIDE RECORDS SUMMARY | 2023-10-20 19:58 | XMS_ITS | Encounter Summary ---
Author Organization [facility] [place] [address] Care Team Providers Care Warehouse And Receiving Supervisor Name Role Phone Polo Pearce Primary Care Provider [phone] Encounter Details Date Type Department Care Team [...] AM EDT Hospital Encounter [place] [address] [place] [address] 10/21/2023 11:30 AM EDT Appointment [place] [phone] [place] [address] 10/21/2023 12:30 PM EDT Appointment [place] [address] [place] [address] 10/21/2023 1:30 PM EDT Appointment [place] [address] [place] [address] 10/21/2023 2:30 PM EDT Appointment [place] [address] [place] [address] 10/26/2023 4:00 PM EDT Office Visit Cardiology at [address] [phone] Jaspreet Kinsey MD [facility] [place] [address] 10/28/2023 9:00 AM EDT Office Visit [place] [address] 10/29/2023 10:00 AM EDT Clinical Support [place] [address] 10/29/2023 10:15 AM EDT Procedure visit [place] [address] 11/01/2023 5:00 PM EDT Office Visit [place] [address] Selene Browning, PhD [facility] [place] [address] 11/22/2023 4:40 PM EDT Office Visit Cardiology at [address] [phone] Porsha Mcdaniels MD [facility] [place] [address] 12/13/2023 10:00 AM EDT Clinical Support [place] [phone] [facility] [place] [address] documented as of this encounter Visit Diagnoses Not on filedocumented in this encounter Care Teams Warehouse And Receiving Supervisor Relationship Specialty Start Date End Date Polo Pearce PA [address] [place] [address] PCP - General Internal Medicine 06/09/21 documented as of this encounter
--- OUTSIDE RECORDS SUMMARY | 2023-10-20 19:58 | XMS_ITS | Encounter Summary ---
Author Organization [facility] Address [facility] [place] [address] Care Team Providers Care Skylights Assembler Name Role Phone Pool Pearce Primary Care Provider [phone] Reason for Visit * Reason Onset Date Comments Results 08/17/2022 Encounter Details Date Type Department Care Team (Late st Contact Info) Description 08/17/2022 Telephone Cardiology at [address] [address] Jaspreet Kinsey MD [facility] [place] [address] Results Social History Tobacco Use Types Packs/Day [...] AM EDT Hospital Encounter [place] [phone] [place] [address] 10/21/2023 11:30 AM EDT Appointment [place] [address] [place] [address] 10/21/2023 12:30 PM EDT Appointment [place] [address] [place] [address] 10/21/2023 1:30 PM EDT Appointment [place] [phone] [place] [address] 10/21/2023 2:30 PM EDT Appointment [place] [address] Mary Reyes APRN [facility] [place] [address] 10/26/2023 4:00 PM EDT Office Visit Cardiology at [address] [phone] Jaspreet Kinsey MD [facility] [place] [address] 10/28/2023 9:00 AM EDT Office Visit [place] [address] 10/29/2023 10:00 AM EDT Clinical Support [place] [address] 10/29/2023 10:15 AM EDT Procedure visit [place] [address] 11/01/2023 5:00 PM EDT Office Visit Gastroenterology at [place] [phone] Selene Browning, PhD [facility] [place] [address] 11/22/2023 4:40 PM EDT Office Visit Cardiology at [place] [phone] Porsha Mcdaniels MD [facility] [place] [address] 12/13/2023 10:00 AM EDT Clinical Support Gastroenterology at [place] [phone] [facility] [place] [address] documented as of this encounter Visit Diagnoses Not on filedocumented in this encounter Care Teams Skylights Assembler Relationship Specialty Start Date End Date Polo Pearce PA [address] [place] [address] PCP - General Internal Medicine 06/09/21 documented as of this encounter
--- OUTSIDE RECORDS SUMMARY | 2023-10-20 19:58 | XMS_ITS | Encounter Summary ---
[place] [address] Care Team Providers Care Solutions Consultant Name Role Phone Polo Pearce Primary Care Provider [phone] Reason for Visit * Auth/Cert (Routine) Specialty Diagnoses / Procedures Referred By Jayant harris Referred To Contact Diagnoses NSTEMI (non-ST elevated myocardial infarction) NSTEMI Procedures EMERGENCY Willy Olivera MD [facility] [place] [address] [facility] Referral ID Status Reason Start Date Expiration Date Visits Re quested Visits Authorized [id number] 1 1 Encounter Details Date Type Department Care Team (Latest Contact Info) Description 09/27/2022 6:50 AM EDT - 09/27/2022 11:59 PM EDT Hospital Encounter Non-Invasive [place] [address] Discharge Disposition: Home Social History Tobacco Use [...] as needed. fluticasone propionate (FLONASE) 50 mcg/actuation [place], Suspension 1 spray by Each Nare route [...] AM EDT Hospital En[place] [address] [place] [address] 10/21/2023 11:30 AM EDT Appointment [place] [address] Mary Reyes APRN [facility] [place] [address] 10/21/2023 12:30 PM EDT Appointment [place] [phone] Mary Re[place] [address] 10/21/2023 1:30 PM EDT Appointment [place] [address] Mary Reyes [facility] [address] 10/21/2023 2:30 PM EDT Appointment [place] [address] [place] [address] 10/26/2023 4:00 PM EDT Office Visit Cardiology at [address] [address] Jaspreet Kinsey MD [facility] [place] [address] 10/28/2023 9:00 AM EDT Office [place] [address] 10/29/2023 10:00 AM EDT Clinical [place] [address] 10/29/2023 10:15 AM EDT Procedure [place] [address] 11/01/2023 5:00 PM EDT Office Visit [place] [phone] Selene Browning, PhD [facility] [address] 11/22/2023 4:40 PM EDT Office Visit Cardiology at [address] [phone] Porsha Mcdaniels MD [facility] [place] [address] 12/13/2023 10:00 AM EDT Clinical Support [place] [address] [facility] [place] [address] documented as of this encounter [...] mLs documented in this encounter Care Teams Solutions Consultant Relationship Specialty Start Date End Date Polo Pearce PA [address] [place] [address] PCP - General Internal Medicine 06/09/21 documented as of this encounter
--- OUTSIDE RECORDS SUMMARY | 2023-10-20 19:58 | XMS_ITS | Encounter Summary ---
[place] [address] Care Team Providers Care Photographer Lithographic Name Role Phone Polo Pearce Primary Care Provider [phone] Encounter Details Date Type Department Care Team (Late st Contact Info) Description 10/20/2022 Telephone Cardiology at [address] [address] Gianna Day, RN Social History [...] AM EDT Hospital Encounter [place] [address] [place] [address] 10/21/2023 11:30 AM EDT Appointment [place] [address] [place] [address] 10/21/2023 12:30 PM EDT Appointment [place] [address] [place] [address] 10/21/2023 1:30 PM EDT Appointment [place] [address] [place] [address] 10/21/2023 2:30 PM EDT Appointment [place] [address] [place] [address] 10/26/2023 4:00 PM EDT Office Visit Cardiology at [address] [phone] Jaspreet Kinsey MD [facility] [place] [address] 10/28/2023 9:00 AM EDT Office Visit [place] [address] 10/29/2023 10:00 AM EDT Clinical Support [place] [address] 10/29/2023 10:15 AM EDT Procedure [place] [address] 11/01/2023 5:00 PM EDT Office Visit Gastroenterology at [place] [phone] Selene Browning, PhD [facility] [place] [address] 11/22/2023 4:40 PM EDT Office Visit Cardiology at [place] [phone] Porsha Mcdaniels MD [facility] [place] [address] 12/13/2023 10:00 AM EDT Clinical [place] [address] Lucero Romero, [facility] [place] [address] documented as of this encounter Visit Diagnoses Not on filedocumented in this encounter Care Teams Photographer Lithographic Relationship Specialty Start Date End Date Polo Pearce PA [address] [place] [address] PCP - General Internal Medicine 06/09/21 documented as of this encounter
--- OUTSIDE RECORDS SUMMARY | 2023-10-20 19:58 | XMS_ITS | Encounter Summary ---
[place] [address] Care Team Providers Care Remote Encoding Operations Supervisor Name Role Phone Polo Pearce Primary Care Provider [phone] Encounter Details Date Type Department Care Team (Late st Contact Info) Description 10/20/2022 8:00 AM EDT Tech [place] [address] Florencia Callahan, [place] Pulmonary embolism, unspecified chronicity, [...] AM EDT Hospital Encounter [place] [address] [place] [address] 10/21/2023 11:30 AM EDT Appointment [place] [address] Mary Reyes [facility] [place] [address] 10/21/2023 12:30 PM EDT Appointment [place] [address] Mary Reyes [facility] [place] [address] 10/21/2023 1:30 PM EDT Appointment [place] [address] [place] [address] 10/21/2023 2:30 PM EDT Appointment [place] [address] [place] [address] 10/26/2023 4:00 PM EDT Office Visit Cardiology at [address] [phone] Jaspreet Kinsey MD [facility] [place] [address] 10/28/2023 9:00 AM EDT Office [place] [address] 10/29/2023 10:00 AM EDT Clinical [place] [address] 10/29/2023 10:15 AM EDT Procedure [place] [address] 11/01/2023 5:00 PM EDT Office [place] [address] Selene Browning, PhD [facility] [place] [address] 11/22/2023 4:40 PM EDT Office Visit Cardiology at [address] [phone] Porsha Mcdaniels MD [facility] [place] [address] 12/13/2023 10:00 AM EDT Clinical [place] [address] [facility] [place] [address] documented as of this encounter Procedures Procedure [...] (Bezet) 525 ms MUSE SYSTEM Calculated R Troy 41 degrees MUSE SYSTEM Calculated T Troy 40 degrees MUSE SYSTEM INTERPRETATION Atrial fibrillation Nonspecific ST and T wave abnormality Prolonged QTc Abnormal ECG When compared with ECG of 08-OCT-2022 16:19, Atrial fibrillation has replaced Sinus rhythm Vent. rate has increased BY ??34 BPM Nonspecific T wave abnormality, improved in Inferior leads QT has lengthened I personally reviewed the tracing and edited the fellows interpretation Confirmed by fellow Otis Rader ([id number]) on 10/20/2022 3:03:05 PM Confirmed by MD Maxwell Hannah ([id number]) on 10/20/2022 7:08:19 PM MUSE SYSTEM 10/20/2022 10:0 3 AM EDT 10/20/2022 7:08 PM EDT Unknown ECG ORDERABLES MUSE SYSTEM * Duplex Study for DVT, Bilat legs (10/20/2022 8:06 AM EDT) VB Text Report Department: Vascular Surgery Lab Patient: [id number] (LOIDA ROQUE) CPT: 56461 Referring Physician: MAMIE MARX ?? Phone: Indications: [...] VASCUBASE 10/20/2022 8:06 AM EDT Mamie Marx [facility] VASCULAR ORDERABLES VASCUBASE documented in this encounter Visit Diagnoses Diagnosis Pulmonary embolism, unspecified chronicity, unspecified pulmonary embolism type, unspecified whether acute cor pulmonale present documented in this encounter Care Teams Remote Encoding Operations Supervisor Relationship Specialty Start Date End Date Polo Pearce PA [address] [place] [address] PCP - General Internal Medicine 06/09/21 documented as of this encounter
--- OUTSIDE RECORDS SUMMARY | 2023-10-20 19:58 | XMS_ITS | Encounter Summary ---
[place] [address] Care Team Providers Care Burnisher Name Role Phone Polo Pearce Primary Care Provider [phone] Encounter Details Date Type Department Care Team (Late st Contact Info) Description 02/08/2023 Orders [place] [phone] Unknown None Social History Tobacco Use Types [...] Hospital Encounter [place] [address] [place] [address] 10/21/2023 11:30 AM EDT Appointment [place] [address] [place] [address] 10/21/2023 12:30 PM EDT Appointment [place] [address] Mary Reyes [facility] [place] [address] 10/21/2023 1:30 PM EDT Appointment [place] [address] [place] [address] 10/21/2023 2:30 PM EDT Appointment [place] [address] Mary Reyes APRN [facility] [address] 10/26/2023 4:00 PM EDT Office Visit Cardiology at [address] [phone] Jaspreet Kinsey MD [facility] [place] [address] 10/28/2023 9:00 AM EDT Office [place] [address] 10/29/2023 10:00 AM EDT Clinical Support [place] [address] 10/29/2023 10:15 AM EDT Procedure visit [place] [address] 11/01/2023 5:00 PM EDT Office Visit Gastroenterology at [place] [phone] Selene Browning, PhD [facility] [place] [address] 11/22/2023 4:40 PM EDT Office Visit Cardiology at [address] [phone] Porsha Mcdaniels MD [facility] [place] [address] 12/13/2023 10:00 AM EDT Clinical Support [place] [phone] [facility] [place] [address] documented as of this encounter Procedures Procedure Name Priority Date/Time Associated Diagnosis Comments ECHOCARDIOGRAM TRANSTHORACIC Routine 02/08/2023 11:40 PM EST documented in this encounter Results * Echocardiogram Transthoracic (02/08/2023 11:40 PM EST) Anatomical Region Laterality Modality Cardiac Other 02/08/2023 11:4 0 PM EST Narrative 02/10/2023 3:09 PM EST 1 [place] [address] ? Echocardiogram Report Name: ROHAN, LOIDA ?Study Date: 02/08/2023 11:40 PM : 1970 [...] without a pericardial effusion. Procedure Limited - 52476. Suboptimal quality. There is normal sinus rhythm. [...] Note Willy Gómez MD - 02/10/2023 1 [place] [address] Echocardiogram Report Name: ROHAN LOIDA Study Date: 02/08/2023 11:40PM : 1970 Age: [...] without a pericardial effusion. Procedure Limited - 63651. Suboptimal quality. There is normal sinus rhythm. [...] on filedocumented in this encounter Care Teams Burnisher Relationship Specialty Start Date End Date Polo Pearce PA [address] [place] [address] PCP - General Internal Medicine 06/09/21 documented as of this encounter
--- OUTSIDE RECORDS SUMMARY | 2023-10-20 19:58 | XMS_ITS | Encounter Summary ---
[place] [address] Care Team Providers Care Business Development Director Name Role Phone Polo Pearce Primary Care Provider [phone] Encounter Details Date Type Department Care Team (Late st Contact Info) Description 09/26/2022 External [place] [address] Social History Tobacco Use Types Packs/Day Years [...] AM EDT Hospital Encounter [place] [address] [place] [address] 10/21/2023 11:30 AM EDT Appointment [place] [phone] Mary Reyes APRN [facility] [address] 10/21/2023 12:30 PM EDT Appointment [place] [address] [place] [address] 10/21/2023 1:30 PM EDT Appointment [place] [address] [place] [address] 10/21/2023 2:30 PM EDT Appointment [place] [address] [place] [address] 10/26/2023 4:00 PM EDT Office Visit Cardiology at [address] [phone] Jaspreet Kinsey MD [facility] [place] [address] 10/28/2023 9:00 AM EDT Office Visit [place] [address] 10/29/2023 10:00 AM EDT Clinical Support [place] [address] 10/29/2023 10:15 AM EDT Procedure visit [place] [address] 11/01/2023 5:00 PM EDT Office [place] [address] Selene Browning, PhD [facility] [place] [address] 11/22/2023 4:40 PM EDT Office Visit Cardiology at [address] [phone] Porsha Mcdaniels MD [facility] CARDIOLOGY [place], [place] [address] 12/13/2023 10:00 AM EDT Clinical Support Gastroenterology at [place] [phone] Lucero Romero, RD [facility] [place] [address] documented as of this encounter Procedures Procedure Name Priority Date/Time Associated Diagnosis Comments ECG SCAN Routine 09/26/2022 8:40 AM EDT documented in this encounter Results * Scan Doc: ECG (09/26/2022 8:40 AM EDT) Historical Provider MD FLEMING MGTalia SCAN EX T ORDR/RSLT documented in this encounter Visit Diagnoses Not on filedocumented in this encounter Care Teams Business Development Director Relationship Specialty Start Date End Date Polo Pearce PA [address] [place] [address] PCP - General Internal Medicine 06/09/21 documented as of this encounter
--- OUTSIDE RECORDS SUMMARY | 2023-10-20 19:58 | XMS_ITS | Encounter Summary ---
Author Organization [facility] Address [facility] [place] [address] Care Team Providers Care Hospital Product Specialist Name Role Phone Polo Pearce Primary Care Provider [phone] Encounter Details Date Type Department Care Team (Late st Contact Info) Description 08/31/2022 Telephone Cardiology at [address] [phone] Carrol La PA [facility] [place] [address] Social History Tobacco Use Types Packs/Day Years [...] PM Referring Provider: Dr. Evans Patient Location: [facility] Brief History Lyuobv Roque is a 52 y.o female with PMH of HFpEF, SVT, PE on Eliquis, HLD who presented to the OSH with nausea, diffuse abdominal pain. Developed chest pain that OSH provider reports was LUQ pain under left breast. [place] like a sharp, intermittent squeeze. Patient is [...] was LUQ abdominal pain under left breast. [place] like a sharp, intermittent squeeze that resolved [...] 300's range on prior lab checks in [facility] system. ACS seems unlikely at this time based on my discussion with Dr. Evans as her symptoms seem GI in origin. This may represent a type II NSTEMI in setting of CATIE and acute GI illness. I recommended close follow up with Dr. Kinsey, primary carriage rider who can consider stress testing. In addition, [...] in management. Carrol La PA-C Access Pager [phone] 08/31/2022 documented in this encounter Plan of Treatment Upcoming Encounters Date Type Department Care Team (Late st Contact Info) Description 10/21/2023 10:30 AM EDT Hospital Encounter [place] [address] [place] [address] 10/21/2023 11:30 AM EDT Appointment [place] [address] [place] [address] 10/21/2023 12:30 PM EDT Appointment [place] [address] [place] [address] 10/21/2023 1:30 PM EDT Appointment [place] [address] [place] [address] 10/21/2023 2:30 PM EDT Appointment [place] [address] [place] [address] 10/26/2023 4:00 PM EDT Office Visit Cardiology at [address] [place] [phone] Jaspreet Kinsey MD [facility] [place] [address] 10/28/2023 9:00 AM EDT Office Visit [place] [address] 10/29/2023 10:00 AM EDT Clinical Support [place] [address] 10/29/2023 10:15 AM EDT Procedure [place] [address] 11/01/2023 5:00 PM EDT Office [place] [phone] Selene Browning, PhD [facility] [place] [address] 11/22/2023 4:40 PM EDT Office Visit Cardiology at [address] [phone] Porsha Mcdaniels MD [facility] [place] [address] 12/13/2023 10:00 AM EDT Clinical Support [place] [phone] [facility] [place] [address] documented as of this encounter Visit Diagnoses Not on filedocumented in this encounter Care Teams Hospital Product Specialist Relationship Specialty Start Date End Date Pol[place] [address] PCP - General Internal Medicine 06/09/21 documented as of this encounter
--- OUTSIDE RECORDS SUMMARY | 2023-10-20 19:58 | XMS_ITS | Encounter Summary ---
Author Organization [facility] [place] [address] Care Team Providers Care Economic Development Manager Name Role Phone Polo Pearce Primary Care Provider [phone] Reason for Referral * Consultation (Routine) - Closed Specialty Diagnoses / Procedures Referred By Jayant harris Referred To Contact Vascular Surgery Diagnoses Pulmonary embolism, unspecified chronicity, unspecified pulmonary embolism type, unspecified whether acute cor pulmonale present ROUTINE, SALVATORE, BLE DVT Vascular medicine PE clinic: seemingly unprovoked small PE. review consideration of hypercoagulability testing Jaspreet Kinsey MD [facility] [address] Elvin Maya MD [facility] [place] [address] Referral ID Status Reason Start Date Expiration Date V isits Requested Visits Authorized [id number] Closed Consult, Test & Treat 07/30/2022 07/30/2023 1 1 Reason for Visit * Reason Comments Coronary Artery Disease Congestive Heart Failure HFpEF Chest Pain Encounter Details Date Type Department Care Team (Late st Contact Info) Description 07/30/2022 9:20 AM EDT Office Visit Cardiology at [address] [address] Jaspreet Kinsey MD [facility] [place] [address] Heart failure with preserved ejection fraction, unspecified [...] Intercurrently, patient presented earlier this week to [facility] with an abrupt increase in fatigue/dyspnea x [...] a significant increase in UOP; however, at [facility] notes they gave me something that they [...] DAYS ??? fluticasone propionate (FLONASE) 50 mcg/actuation Z[place]ata, Suspension 1 spray, Each Nare, DAILY ??? [...] summary and medication administration record from [facility] to see what was given to her [...] summary and medication administration record from [facility] to see what was given to her to effect UOP positively - Diuresis: bumex 1 qd - Cardioprotection: - SGLT2i: jardiance - MRA: aldactone 25 documented in this encounter Plan of Treatment Upcoming Encounters Date Type Department Care Team (Late st Contact Info) Description 10/21/2023 10:30 AM EDT Hospital Encounter [place] [address] [place] [address] 10/21/2023 11:30 AM EDT Appointment [place] [address] [place] [address] 10/21/2023 12:30 PM EDT Appointment [place] [address] [place] [address] 10/21/2023 1:30 PM EDT Appointment [place] [address] [place] [address] 10/21/2023 2:30 PM EDT Appointment [place] [address] [place] [address] 10/26/2023 4:00 PM EDT Office Visit Cardiology at [address] [phone] Jaspreet Kinsey MD [facility] [place] [address] 10/28/2023 9:00 AM EDT Office Visit [place] [address] 10/29/2023 10:00 AM EDT Clinical Support [place] [address] 10/29/2023 10:15 AM EDT Procedure visit [place] [address] 11/01/2023 5:00 PM EDT Office [place] [address] Selene Browning, PhD [facility] [place] [address] 11/22/2023 4:40 PM EDT Office Visit Cardiology at [address] [phone] Porsha Mcdaniels MD [facility] [place] [address] 12/13/2023 10:00 AM EDT Clinical Support [place] [address] Lucero Romero, [place] [facility] [place] [address] Scheduled Referrals Name Type Priority Associated Diagnoses [...] dysrhythmias documented in this encounter Care Teams Economic Development Manager Relationship Specialty Start Date End Date Polo Pearce PA [address] [place] [address] PCP - General Internal Medicine 06/09/21 documented as of this encounter
--- OUTSIDE RECORDS SUMMARY | 2023-10-20 19:58 | XMS_ITS | Encounter Summary ---
Author Organization [facility] Address [facility] [place] [address] Care Team Providers Care Health Policy Analyst Name Role Phone Polo Pearce Primary Care Provider [phone] Encounter Details Date Type Department Care Team (Late st Contact Info) Description 12/22/2022 Telephone Cardiology at [address] [place] [address] Jaspreet Kinsey MD [facility] [place] [address] Social History Tobacco Use Types Packs/Day Years [...] AM EDT Hospital Encounter [place] [address] Mary Reyes [facility] [place] [address] 10/21/2023 11:30 AM EDT Appointment [place] [address] Mary Reyes [facility] [place] [address] 10/21/2023 12:30 PM EDT Appointment [place] [address] Mary Reyes [facility] [place] [address] 10/21/2023 1:30 PM EDT Appointment [place] [address] Mary Reyes [facility] [place] [address] 10/21/2023 2:30 PM EDT Appointment [place] [address] Mary Reyes [facility] [place] [address] 10/26/2023 4:00 PM EDT Office Visit Cardiology at [address] [address] Jaspreet Kinsey MD [facility] [place] [address] 10/28/2023 9:00 AM EDT Office [place] [address] 10/29/2023 10:00 AM EDT Clinical [place] [address] 10/29/2023 10:15 AM EDT Procedure [place] [address] 11/01/2023 5:00 PM EDT Office [place] [address] Selene Browning, PhD [facility] [place] [address] 11/22/2023 4:40 PM EDT Office Visit Cardiology at [address] [phone] Porsha Mcdaniels MD [facility] [place] [address] 12/13/2023 10:00 AM EDT Clinical [place] [address] Lucero Romero, ALVA [facility] [place] [address] documented as of this encounter Visit Diagnoses Not on filedocumented in this encounter Care Teams Health Policy Analyst Relationship Specialty Start Date End Date Polo Pearce PA [address] [place] [address] PCP - General Internal Medicine 06/09/21 documented as of this encounter
--- OUTSIDE RECORDS SUMMARY | 2023-10-20 19:58 | XMS_ITS | Encounter Summary ---
Author Organization [facility] Address [facility] [place] [address] Care Team Providers Care Animal Rescuer Name Role Phone Polo Pearce Primary Care Provider [phone] Encounter Details Date Type Department Care Team (Late st Contact Info) Description 02/08/2023 Telephone Cardiology at [address] [address] Ericka Brenner PA [facility] [place] [address] Social History Tobacco Use Types Packs/Day Years [...] PM Referring Provider: Dr. Iyer Patient Location: [facility] Brief History 52 year old female with [...] aortopathy. 4. No acute pulmonary findings. [facility] 08/2019: Conclusions: * Normal coronary arteries OSH Interventions: Sl nitro Full dose ASA Assessment & Plan: 52 year old female with history of prior NSTEMI with normal coronaries 2019, recent coronary CTA with ca score 198), HTN, HLD, HFpEF, Afib (on Eliquis) who is presenting with chest pain. Has had similar presentation in 2019 with a [facility] demonstrating normal coronaries at that time. [...] NSTEMI and [place] [facility] [place]. - agree with nitro gtt if not chest pain free - if persistent chest pain with nitro gtt would load Plavix 600mg - start IV heparin gtt 12 hours post last dose of Eliquis - BB as able, HI statin - [place] [facility] 02/08/23 Above recommendations were based on my discussion with Dr. Iyer; I have not personally interviewed or examined this patient. I encouraged them to contact us if there is any change in symptoms, decision- making, or further need for guidance in management. Ericka Brenner PA-C Access Pager [phone] 02/08/2023 documented in this encounter Plan of Treatment Upcoming Encounters Date Type Department Care Team (Late st Contact Info) Description 10/21/2023 10:30 AM EDT Hospital Encounter [place] [address] [place] [address] 10/21/2023 11:30 AM EDT Appointment [place] [address] Mary Reyes [facility] [place] [address] 10/21/2023 12:30 PM EDT Appointment [place] [address] Mary Reyes [facility] [place] [address] 10/21/2023 1:30 PM EDT Appointment [place] [address] Mary Reyes [place] [address] 10/21/2023 2:30 PM EDT Appointment [place] [address] Mary Reyes [place]N [place] [address] 10/26/2023 4:00 PM EDT Office Visit Cardiology at [address] [phone] Jaspreet Kinsey MD [facility] [place] [address] 10/28/2023 9:00 AM EDT Office [place] [address] 10/29/2023 10:00 AM EDT Clinical [place] [address] 10/29/2023 10:15 AM EDT Procedure [place] [address] 11/01/2023 5:00 PM EDT Office Visit Gastroenterology at [place] [phone] Selene Browning, PhD [facility] [place] [address] 11/22/2023 4:40 PM EDT Office Visit Cardiology at [address] [phone] Porsha Mcdaniels MD [facility] [place] [address] 12/13/2023 10:00 AM EDT Clinical Support [place] [address] Lucero Romero, [place] [facility] [place] [address] documented as of this encounter Visit Diagnoses Not on filedocumented in this encounter Care Teams Animal Rescuer Relationship Specialty Start Date End Date Polo Pearce PA Sb [address] [facility] [address] [place] [address] PCP - General Internal Medicine 06/09/21 documented as of this encounter
--- OUTSIDE RECORDS SUMMARY | 2023-10-20 19:58 | XMS_ITS | Encounter Summary ---
[place] [address] Care Team Providers Care Director Business Development Name Role Phone Polo Pearce Primary Care Provider [phone] Encounter Details Date Type Department Care Team (Late st Contact Info) Description 08/31/2022 External [place] [address] Social History Tobacco Use Types Packs/Day Years [...] AM EDT Hospital Encounter [place] [address] [place] [address] 10/21/2023 11:30 AM EDT Appointment [place] [address] [place] [address] 10/21/2023 12:30 PM EDT Appointment [place] [address] [place] [address] 10/21/2023 1:30 PM EDT Appointment [place] [address] [place] [address] 10/21/2023 2:30 PM EDT Appointment [place] [address] [place] [address] 10/26/2023 4:00 PM EDT Office Visit Cardiology at [address] [phone] Jaspreet Kinsey MD [facility] [place] [address] 10/28/2023 9:00 AM EDT Office [place] [address] 10/29/2023 10:00 AM EDT Clinical [place] [address] 10/29/2023 10:15 AM EDT Procedure [place] [address] 11/01/2023 5:00 PM EDT Office Visit [place] [address] Selene Browning, PhD [facility] [place] [address] 11/22/2023 4:40 PM EDT Office Visit Cardiology at [address] [phone] Porsha Mcdaniels MD [facility] [place] [address] 12/13/2023 10:00 AM EDT Clinical Support Gastroenterology at [place] [phone] Lucero Romero, RD [facility] [place] [address] documented as of this encounter Procedures Procedure Name Priority Date/Time Associated Diagnosis Comments ECG SCAN Routine 08/31/2022 2:00 PM EDT documented in this encounter Results * Scan Doc: ECG (08/31/2022 2:00 PM EDT) Historical Provider MD FLEMING MGTalia SCAN EX T ORDR/RSLT documented in this encounter Visit Diagnoses Not on filedocumented in this encounter Care Teams Director Business Development Relationship Specialty Start Date End Date Polo Pearce PA [address] [place] [address] PCP - General Internal Medicine 06/09/21 documented as of this encounter
--- OUTSIDE RECORDS SUMMARY | 2023-10-20 19:58 | XMS_ITS | Encounter Summary ---
Author Organization [facility] Address [facility] [place] [address] Care Team Providers Care Data Entry Coordinator Name Role Phone Polo Pearce Primary Care Provider [phone] Reason for Visit * Consultation (Routine) - Closed Specialty Diagnoses / Procedures Referred By Jayant harris Referred To Contact Vascular Surgery Diagnoses Pulmonary embolism, unspecified chronicity, unspecified pulmonary embolism type, unspecified whether acute cor pulmonale present ROUTINE, SALVATORE, BLE DVT Vascular medicine PE clinic: seemingly unprovoked small PE. review consideration of hypercoagulability testing Jaspreet Kinsey MD [facility] [place] [address] [place] [address] Elvin Maya MD [facility] [place] [address] Referral ID Status Reason Start Date Expiration Date V isits Requested Visits Authorized [id number] Closed Consult, Test & Treat 07/30/2022 07/30/2023 1 1 Encounter Details Date Type Department Care Team (Late st Contact Info) Description 10/20/2022 9:00 AM EDT Office [place] [address] Umberto Abbott MD [facility] [address] [place] [id number] Pulmonary embolism, unspecified chronicity, unspecified pulmonary embolism [...] from the original note were not included. [facility] [place] [address] VASCULAR MEDICINE CLINIC NOTE PRIMARY CARE PROVIDER: JOCY Franco REFERRING PROVIDER: Jaspreet Kinsey PROBLEM LIST: Patient Active Problem List Diagnosis Pulmonary embolus 07/2022: right upper lobe. Started on eliquis 08/2022 TTE ([facility]): normal bi-v s/f. 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 Noted to carry most fluid in abdomen - Multiple echos since then, including 09/2022, without significant finding Restless legs Asthma Subjective: Patient ID: Indira Roque is a 52 y.o. female with the following vascular issues: Unprovoked PE, 07/2022 Ms. Roque is a 52yo female with a history [...] She was seen recently by her primary Manager Food Safety, Dr. Kinsey, and he had uptitrated her [...] replaced Sinus rhythm Assessment and Plan: Ms. Roque is a 52yo female with a history [...] Vascular Clinic as needed. Sindhu Santo MD Chair Post Machine Operator, PGY5 #[id number] Cardiovascular Medicine Attending I have interviewed and [...] Encounter [place] [address] [place] [address] 10/21/2023 11:30 AM EDT Appointment [place] [address] [place] [address] 10/21/2023 12:30 PM EDT Appointment [place] [address] [place] [address] 10/21/2023 1:30 PM EDT Appointment [place] [address] [place] [address] 10/21/2023 2:30 PM EDT Appointment [place] [address] Mary Reyes APRN [facility] [place] [address] 10/26/2023 4:00 PM EDT Office Visit Cardiology at [address] [phone] Jaspreet Kinsey MD [facility] [place] [address] 10/28/2023 9:00 AM EDT Office Visit [place] [address] 10/29/2023 10:00 AM EDT Clinical Support [place] [address] 10/29/2023 10:15 AM EDT Procedure visit [place] [address] 11/01/2023 5:00 PM EDT Office [place] [phone] Selene Browning, PhD [facility] [address] 11/22/2023 4:40 PM EDT Office Visit Cardiology at [address] [phone] Porsha Mcdaniels MD [facility] [place] [address] 12/13/2023 10:00 AM EDT Clinical [place] [phone] [facility] [place] [address] documented as of this encounter Visit Diagnoses Diagnosis Pulmonary embolism, unspecified chronicity, unspecified pulmonary embolism type, unspecified whether acute cor pulmonale present- Primary PAF (paroxysmal atrial fibrillation) Atrial fibrillation documented in this encounter Care Teams Data Entry Coordinator Relationship Specialty Start Date End Date Polo Pearce PA [address] [place] [address] PCP - General Internal Medicine 06/09/21 documented as of this encounter
--- OUTSIDE RECORDS SUMMARY | 2023-10-20 19:58 | XMS_ITS | Encounter Summary ---
[place] [address] Care Team Providers Care [employer] Name Role Phone Polo Pearce Primary Care Provider [phone] Reason for Visit * Auth/Cert (Routine) Specialty Diagnoses / Procedures Referred By Jayant t Referred To Contact Diagnoses NSTEMI (non-ST elevated myocardial infarction) NSTEMI NSTEMI (non-ST elevated myocardial infarction) [I21.4] [I21.4] NSTEMI (non-ST elevated myocardial infarction) Procedures EMERGENCY IPI Itz Bhardwaj MD [facility] [place] [address] [facility] Referral ID Status Reason Start Date Expiration Date Visits Re quested Visits Authorized [id number] 1 1 Encounter Details Date Type Department Care Team (Latest Contact Info) Description 02/08/2023 6:34 PM EST - 02/11/2023 3:45 PM EST Hospital Encounter Heart and Vascular Unit Level 4 [place] [id number] Bobby Edmonds MD [facility] [place] [address] Itz Bhardwaj MD [facility] [place] [address] Chest pain, unspecified type; NSTEMI (non-ST elevated myocardial infarction) Discharge Disposition: Home Social History Tobacco Use Types Packs/Day Years Used Date Smoking Tobacco: Never Smokeless Tobacco: Never Alcohol Use Standard Drinks/Week Comments Never 0 (1 standard drink = 0.6 oz pur e alcohol) [facility] Utilities Answer Date Recorded In [...] Loida Madrigal Patient Age: 52 y.o. Language: Bengali Race: White Ethnicity: Not nor Admit date: 02/08/2023 Discharge date and time: 02/11/2023 Attending Physician: Itz Bhardwaj MD Discharge Physician: Itz Bhardwaj MD PCP: JOCY Franco ([phone]) ID: Loida Madrigal is a 52 y.o. female w/ PMH of NSTEMI (2019, no coronary disease identified),HTN, HLD, HFpEF, PE, AVNRT, and Afib on eliqu, admitted to [facility] on 02/08/2023 for a total of 3 [...] upper lobe. Started on eliquis 08/2022 TTE ([facility]): normal bi-v s/f. No significant VHD [...] At this time, she presented to the [facility] ED. In the [facility] ED, initial troponin was elevated at 622ng/L. D-Dimer was 264 and K was 3.2. Pro-BNP was elevated at 1256. CXR did not show acute process. An EKG was performed and showed ST-depressions in leads II, III, aVF, and V4-V6. She was given several doses of sublingual nitroglycerin without significant reduction in chest pain. Given her elevated troponin and EKG changes, cardiology at [facility] was contacted for transfer. She was loaded [...] from prior EKGs. Her troponins at [facility] are flat 23 > 27. Additionally, she had a CT coronary in 09/2022 which showed non-obstructive coronary arteries. Her TTE was reassuring with EF 59% with concern for segmental wall motion abnormalities that were not present prior. Her chest pain is likely not related to ACS. She did continue to have chest pain throughoutadmission that responded to nitro. 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 Refills: 0 fluticasone propionate 50 mcg/actuation [place], Suspension Commonly known as: Flonase 1 spray [...] AM Jed Tovar MD Cardiology at [facility] Arrive at: Pump Station Operator Area [phone] 03/04/2023 4:00 PM Jaspreet Kinsey MD Cardiology at [place] Arrive at: [facility] [address] [phone] Provider Contact Information: JOCY Franco [address] / [facility] [id number] Discharge References/Attachments: Discharge References/Attachments None Addendum: The [...] as needed. fluticasone propionate (FLONASE) 50 mcg/actuation [place], Suspension 1 spray by Each Nare route [...] Afib on eliquis who initially presented to [facility] with chest pain and shortness of breath. [...] that was done by the on-call overnight tray service worker, there is no significant change in biventricular function. Assessment: Loida Madrigal is a 52 y.o. female with a PMHx NSTEMI (2019, no coronary disease identified), HTN, HLD, HFpEF, and Afib on [facility] who initially presented to [facility] with chest pain and shortness ofbreath. There [...] Heidy Walker DO Internal Medicine PGY-1 Pager [phone], M1-S2 Service Associated attestation - Itz Bhardwaj [...] Afib on eliquis who initially presented to [facility] with chest pain and shortness of breath. [...] that was done by the on-call overnight tray service worker, there is no significant change in biventricular function. Cardiac Catheterization: Pending. Assessment: Loida Madrigal is a 52 y.o. female with a PMHx NSTEMI (2019, no coronary disease identified), HTN, HLD, HFpEF, and Afib on eliquis who initially presented to [facility] with chest pain and shortness ofbreath. There [...] Heidy Walker DO Internal Medicine PGY-1 Pager [phone], M1-S2 Service documented in this encounter H&P Notes * German Bianchi MD - 02/08/2023 10:05 PM EST Images from the original note were not included. Cardiology Admission History and Physical Patient Name: Loida Madrigal Service: M1-S1 Responsible Attending: Bobby Edmonds MD PCP: JOCY Franco PCP phone #: [phone] ID/Chief Complaint: Loida Madrigal is a 52 y.o. female with a PMHx NSTEMI (2019, no coronary disease identified), HTN, HLD, HFpEF, PE, AVNRT, and Afib on eliquis who initially presented to [facility] with chest pain and shortness of breath, now transferred to [facility] for management of presumed NSTEMI. History of [...] At this time, she presented to the [facility] ED. In the [facility] ED, initial troponin was elevated at 622ng/L. D-Dimer was 264 and K was 3.2. Pro-BNP was elevated at 1256. CXR did not show acute process. An EKG was performed and showed ST-depressions in leads II, III, aVF, and V4-V6. She was given several doses of sublingual nitroglycerin without significant reduction in chest pain. Given her elevated troponin and EKG changes, cardiology at [facility] was contacted for transfer. She was loaded [...] upper lobe. Started on eliquis 08/2022 TTE ([facility]): normal bi-v s/f. No significant VHD [...] as needed. fluticasone propionate (FLONASE) 50 mcg/actuation [place], Suspension 1 spray by Each Nare route [...] Mother: history of stroke. Father: history of MD in father. Siblings: none. Social History: Tobacco: [...] Afib on eliquis who initially presented to [facility] with chest pain and shortness of breath, now transferred to [facility] for management of presumed NSTEMI. Mrs. Madrigal [...] Bianchi MD, PGY-2 Cardiology M1-S2, Team Pager [phone] 02/08/2023 Associated attestation - Itz Bhardwaj MD [...] fairly recent. She has ruled out for MD with low-level not increasing troponins and her [...] in an outpatient cardiac rehabilitation program at [facility] was discussed. Patient agrees to a [...] COVID test: Lab Results Component Value Date [id number] Not Detected 06/13/2021 Present on Admission: NSTEMI (non-ST elevated myocardial infarction) Hospitalizations Within the Past 30 Days: no previous admission in last 30 days Patient receiving hospital care under Inpatient status. Admission order reviewed. Health/Prescription Coverage: Primary Insurance: [employer] [facility] Payor: [employer] [facility] [place] / Plan: [facility] [place] EXCHANGE / Product Type: *No Product type* / Secondary Insurance: N/A ; Prescription Coverage: Yes Preferred Pharmacy: [facility] - [place], [place] - [address] [facility] [address] [facility] [address] [facility] - [place], [place] - [address] [facility] [address] [facility] [address] Advance Care Planning: Attempt Cardiopulmonary Resuscitation - Inpatient <no information> -Advanced Directive: No, need to discuss (Referral sent to [facility] - [facility]) Current Functional Ability: Independent Functional Status Prior to Admission: Independent Home Environment: Others in the home: spouse (Lives w/ (Boby)). Current Living Arrangements: home/apartment/condo. Accessibility Concerns:1.5 story home (steps w/ railings). 5-6 [place] home. No concerns. Current DME: respiratory supplies ([employer] ([employer] [employer])) [address] [address] Social & Family Supports: All names listed [...] olivier Tasha, when medically ready. Registered Nurse Pencil Inspector / [employer] will continue to follow patient???s progress and [...] AM EDT Hospital Encounter [place] [phone] [place] [address] 10/21/2023 11:30 AM EDT Appointment [place] [address] [place] [address] 10/21/2023 12:30 PM EDT Appointment [place] [address] Mary Reyes [facility] [address] 10/21/2023 1:30 PM EDT Appointment [place] [phone] Mary Reyes [place] [address] 10/21/2023 2:30 PM EDT Appointment [place] [phone] Mary Reyes APRN [facility] [place] [address] 10/26/2023 4:00 PM EDT Office Visit Cardiology at [address] [phone] Jaspreet Kinsey MD [facility] [place] [address] 10/28/2023 9:00 AM EDT Office Visit [place] [address] 10/29/2023 10:00 AM EDT Clinical [place] [address] 10/29/2023 10:15 AM EDT Procedure [place] [address] 11/01/2023 5:00 PM EDT Office Visit Gastroenterology at [place] [phone] Selene Browning, PhD [facility] [place] [address] 11/22/2023 4:40 PM EDT Office Visit Cardiology at [place] [phone] Porsha Mcdaniels MD [facility] [place] [address] 12/13/2023 10:00 AM EDT Clinical [place] [phone] [facility] [place] [address] documented as of this encounter Procedures Procedure Name Priority Date/Time Associated Diagnosis Comments URINALYSIS MICROSCOPIC EXAM Routine 02/11/2023 9:30 AM EST URINALYSIS WITH REFLEX CULTURE Routine 02/11/2023 9:30 AM EST URINE CULTURE Routine 02/11/2023 9:30 AM EST EKG 12-LEAD Routine 02/11/2023 6:07 AM EST Chest pain, unspecified type HEMOGRAM Routine 02/11/2023 3:41 AM EST DIFFERENTIAL, AUTOMATED Routine 02/11/2023 3:41 AM EST CBC (WITH DIFF) Routine 02/11/2023 3:41 AM EST MAGNESIUM Routine 02/11/2023 3:41 AM EST BASIC METABOLIC PANEL Routine 02/11/2023 3:41 AM EST HEMOGRAM Routine 02/10/2023 3:46 AM EST DIFFERENTIAL, AUTOMATED Routine 02/10/2023 3:46 AM EST CBC (WITH DIFF) Routine 02/10/2023 3:46 AM EST MAGNESIUM Routine 02/10/2023 3:46 AM EST BASIC METABOLIC PANEL Routine 02/10/2023 3:46 AM EST POTASSIUM Routine 02/09/2023 2:46 PM EST ECHO LMTD W CONTRAST W LMTD SPEC DOPP COLOR DOPP Routine 02/09/2023 9:01 AM EST NSTEMI (non-ST elevated myocardial infarction) TROPONIN - SERIES STAT 02/09/2023 8:0 1 AM EST CRP, ACUTE INFLAMMATION Routine 02/09/2023 3:55 AM EST HEPARIN (UNFRACTIONATED) LEVEL Timed 02/09/2023 3:55 AM EST HEMOGRAM Routine 02/09/2023 3:55 AM EST DIFFERENTIAL, AUTOMATED Routine 02/09/2023 3:55 AM EST SEDIMENTATION RATE Routine 02/09/2023 3: 55 AM EST CBC (WITH DIFF) Routine 02/09/2023 3:55 AM EST MAGNESIUM Routine 02/09/2023 3:55 AM EST BASIC METABOLIC PANEL Routine 02/09/2023 3:55 AM EST TROPONIN - SERIES Routine 02/08/2023 10: 08 PM EST HEMOGRAM Routine 02/08/2023 10:08 PM EST DIFFERENTIAL, AUTOMATED Routine 02/08/2023 10:08 PM EST CBC (WITH DIFF) Routine 02/08/2023 10:08 PM EST TSH Routine 02/08/2023 10:08 PM EST PRO-BRAIN NATRIURETIC PEPTIDE Routine 02/08/2023 10:08 PM EST MAGNESIUM Routine 02/08/2023 10:08 PM EST BASIC METABOLIC PANEL Routine 02/08/2023 10:08 PM EST EKG 12-LEAD Routine 02/08/2023 6:38 PM EST documented in this encounter Results * (ABNORMAL) Urine culture (02/11/2023 9:30 AM EST) Urine Culture 10,000-49,000 cfu/ml mixed mucosal elmer Note: Culture shows multiple bacterial species suggesting mucosal contamination. (A) [facility] Urine 02/11/2023 9:30 AM EST 02/11/2023 1:19 PM EST Narrative Resulting Agency Comment Spec In Lab Heidy Walker MD MICROBIOLOGY - GENER AL ORDERABLES Performing Organization Address [facility] de Phone Number [facility] [place] [address] * (ABNORMAL) Urinalysis Microscopic Exam (02/11/2023 9:30 AM EST) RBC, Urine 1 0 - 4 /HPF [facility] WBC, Urine 29(H) 0 - 5 /HPF [facility] Bacteria, Urine Few(A) None /HPF [facility] Squamous Epithelial Cells Raw Data, Urine 1 <=4 /HPF [facility] Transitional Epithelial Cells, Urine 2(H) <=1 /HPF [facility] Hyaline Casts, Urine 2 0 - 2 /LPF [facility] Calcium Oxalate Crystal, Urine Moderate( A) None /HPF [facility] Urine Urine / Unknown 02/11/2023 9 :30 AM EST 02/11/2023 10:33 AM EST Narrative Resulting Agency Comment Spec In Lab Heidy Walker MD URINE ORDERABLES Performing Organization Address [facility] de Phone Number [facility] [place] [address] * (ABNORMAL) Urinalysis with reflex Culture (02/11/2023 9:30 AM EST) Glucose, Urine Dipstick 500(Critical ) Negative mg/dL [facility] Comment: Urinalysis result NOT critical without a combination of Glucose greater than or equal to 500 mg/dL AND Ketones greater than or equal to 80 mg/dL Protein, Urine Dipstick Negative Negative mg/dL [facility] Bilirubin, Urine Dipstick Negative Negative mg/dL [facility] Comment: Clinical correlation required for positive Urine Bilirubin results as false positive may occur with some drugs and drug related products. If a false positive is suspected a serum total bilirubin should be considered if clinically indicated. Urobilinogen, Urine Dipstick Normal Normal mg/dL [facility] pH, Urn (dipstick) 5.5 5.0 - 8.0 [facility] Blood, Urine Dipstick Negative Negative mg/dL [facility] Ketone, Urine Dipstick Trace(A) Negative mg/dL [facility] Nitrite, Urine Dipstick Negative Negative [facility] Leukocytes, Urine Dipstick Moderate(A) Negative mcL [facility] Appearance, Urine Dipstick Cloudy(A) Clear [facility] Specific [place] Urine Automated 1.029 1.005 - 1.030 [facility] Color, Urine Dipstick Dark Yellow Yellow [facility] Reflex to Culture Yes [facility] Urine Urine / Unknown 02/11/2023 9 :30 AM EST 02/11/2023 10:32 AM EST Narrative Resulting Agency Comment Spec In Lab Heidy Walker MD URINE ORDERABLES Performing Organization Address City/[facility]/ZIP Co de Phone Number [facility] [place] [address] * EKG 12 Lead (02/11/2023 6:07 AM EST) Ventricular rate 47 BPM MUSE SYSTEM Atrial Rate 47 BPM MUSE SYSTEM P-R Interval 200 ms MUSE SYSTEM QRS Duration 88 ms MUSE SYSTEM Q-T Interval 522 ms MUSE SYSTEM QTC Calculated (Bezet) 461 ms MUSE SYSTEM Calculated P [place] 36 degrees MUSE SYSTEM Calculated R [place] 48 degrees MUSE SYSTEM Calculated T [place] 12 degrees MUSE SYSTEM INTERPRETATION Sinus bradycardia Possible Left atrial enlargement Possible Lateral infarct (cited on or before 08-FEB-2023) Long QT interval Abnormal ECG When compared with ECG of 10-FEB-2023 11:44, No significant change was found I personally reviewed the tracing and edited the fellows interpretation Confirmed by fellow MD Rosalinda, Alejandro ([id number]) on 02/11/2023 2:15:46 PM Confirmed by Kai Haider ([id number]) on 02/11/2023 4:16:20 PM MUSE SYSTEM 02/11/2023 6:07 AM EST 02/11/2023 4:16 PM EST Itz Bhardwaj MD ECG ORDERABLES Performing Organization Address City/[facility]/ZIP Co de Phone Number MUSE SYSTEM * Differential, Automated (02/11/2023 3:41 AM EST) Neutrophil % 53.9 % [facility] Neutrophil Absolute 3.50 1.70 - 6.10 x10(3)/[facility] Lymph % 31.5 % [facility] Lymphocytes Abs 2.0 0.9 - 3.2 x10(3)/[facility] Monocyte % 8.9 % [facility] Monocyte Abs 0.6 0.3 - 0.9 x10(3)/[facility] Eos % 4.9 % [facility] Eosinophils Abs 0.3 0.0 - 0.4 x10(3)/[facility] Basophil % 0.6 % [facility] Baso Absolute 0.0 0.0 - 0.1 x10(3)/[facility] Immature Gran % 0.20 % [facility] Comment: Immature granulocytes(IG's)percentage and absolute count will include metamyelocytes, myelocytes, and promyelocytes. Blood smears from CBCs yielding IG's will be scanned manually for concordance. If this scan disagrees with the automated IG or if promyelocytes are noted, a manual differential will be performed. Immature Gran Absolute 0.01 0.00 - 0.04 x10(3)/[facility] Blood 02/11/2023 3:41 AM EST 02/11/2023 4:01 AM EST Narrative Resulting Agency Comment Spec In Lab German Bianchi MD HEMATOLOGY ORDERABL ES [facility] [place] [address] * Hemogram (02/11/2023 3:41 AM EST) White Blood Cell 6.5 4.0 - 9.5 x10(3)/[facility] Red Blood Cell 4.55 4.00 - 5.21 x10(6)/[facility] Hemoglobin 14.4 11.7 - 15.5 g/dL [facility] Hematocrit 42.9 35.7 - 45.8 % [facility] Mean Cell Volume 94.3 82.6 - 94.4 fL [facility] Mean Cell Hemoglobin 31.6 27.1 - 32.0 pg [facility] Mean Cell Hemoglobin Concentration 33.6 31.7 - 35.0 g/dL [facility] Platelet 240 145 - 357 x10(3)/mcL [facility] RDW Standard Deviation 42.9 37.0 - 46.0 fL [facility] RDW coefficient of variation 12.4 11.5 - 14.1 % [facility] Mean Platelet Volume 11.0 7.6 - 12.9 fL [facility] NRBC% auto 0.0 % [facility] NRBC Absolute 0.000 0.000 - 0.000 x10(3)/[facility] Blood 02/11/2023 3:41 AM EST 02/11/2023 4:01 AM EST Narrative Resulting Agency Comment Spec In Lab German Bianchi MD HEMATOLOGY ORDERABL ES Performing Organization Address [facility] Co de Phone Number [facility] [place] [address] * Magnesium (02/11/2023 3:41 AM EST) Magnesium 0.91 0.69 - 1.07 mmol/L [facility] Blood 02/11/2023 3:41 AM EST 02/11/2023 4:01 AM EST Narrative Resulting Agency Comment Spec In Lab Bobby Edmonds MD CHEMISTRY ORDERABLES Performing Organization Address [facility] Co de Phone Number [facility] [place] [address] * (ABNORMAL) Basic Metabolic Panel (non-fasting) (02/11/2023 3:41 AM EST) Glucose 97 65 - 199 mg/dL [facility] Comment:Diabetes: >=200 mg/d L plus symptoms Blood Urea Nitrogen 23(H) 8 - 18 mg/dL [facility] Creatinine 1.07 0.70 - 1.20 mg/dL [facility] Sodium 138 135 - 145 mmol/L [facility] Potassium 4.0 3.5 - 5.0 mmol/L [facility] Comment: Please note: ??Patients with WBC >100,000 may have falsely elevated Potassium levels. ??For accurate Potassium quantification in these patients send serum separator tube (gold top) for subsequent determinations. ??Contact the Clinical Chemistry Laboratory if there are any questions. Chloride 109(H) 98 - 107 mmol/L [facility] Carbon Dioxide 17(L) 22 - 31 mmol/L [facility] Anion Gap 12 5 - 15 mmol/L [facility] Calcium 9.1 8.5 - 10.5 mg/dL [facility] Est Glomerular Filtration Rate 62 >=60 mL/min/1. 73 m?? [facility] Comment: This patient's estimated GFR was [...] Edmonds MD CHEMISTRY ORDERABLES Performing Organization Address City/State/[facility] Co de Phone Number [facility] [place] [address] * Differential, Automated (02/10/2023 3:46 AM EST) Neutrophil % 59.8 % [facility] Neutrophil Absolute 4.01 1.70 - 6.10 x10(3)/[facility] Lymph % 27.5 % [facility] Lymphocytes Abs 1.8 0.9 - 3.2 x10(3)/[facility] Monocyte % 8.5 % [facility] Monocyte Abs 0.6 0.3 - 0.9 x10(3)/[facility] Eos % 3.7 % [facility] Eosinophils Abs 0.2 0.0 - 0.4 x10(3)/[facility] Basophil % 0.4 % [facility] Baso Absolute 0.0 0.0 - 0.1 x10(3)/[facility] Immature Gran % 0.10 % [facility] Comment: Immature granulocytes(IG's)percentage and absolute count will include metamyelocytes, myelocytes, and promyelocytes. Blood smears from CBCs yielding IG's will be scanned manually for concordance. If this scan disagrees with the automated IG or if promyelocytes are noted, a manual differential will be performed. Immature Gran Absolute 0.01 0.00 - 0.04 x10(3)/[facility] Blood 02/10/2023 3:46 AM EST 02/10/2023 4:12 AM EST Narrative Resulting Agency Comment Spec In Lab German Bianchi MD HEMATOLOGY ORDERABL ES Performing Organization Address City/State/[facility] Co de Phone Number [facility] [place] [address] * Hemogram (02/10/2023 3:46 AM EST) White Blood Cell 6.7 4.0 - 9.5 x10(3)/[facility] Red Blood Cell 4.60 4.00 - 5.21 x10(6)/[facility] Hemoglobin 14.4 11.7 - 15.5 g/dL [facility] Hematocrit 42.2 35.7 - 45.8 % [facility] Mean Cell Volume 91.7 82.6 - 94.4 fL [facility] Mean Cell Hemoglobin 31.3 27.1 - 32.0 pg [facility] Mean Cell Hemoglobin Concentration 34.1 31.7 - 35.0 g/dL [facility] Platelet 246 145 - 357 x10(3)/[facility] RDW Standard Deviation 42.3 37.0 - 46.0 fL [facility] RDW coefficient of variation 12.6 11.5 - 14.1 % [facility] [facility] Mean Platelet Volume 11.1 7.6 - 12.9 fL [facility] NRBC% auto 0.0 % [facility] NRBC Absolute 0.000 0.000 - 0.000 x10(3)/mcL [facility] Blood 02/10/2023 3:46 AM EST 02/10/2023 4:12 AM EST Narrative Resulting Agency Comment Spec In Lab German Bianchi MD HEMATOLOGY ORDERABL ES Performing Organization Address [facility] de Phone Number [facility] [place] [address] * Magnesium (02/10/2023 3:46 AM EST) Magnesium 1.01 0.69 - 1.07 mmol/L [facility] Blood 02/10/2023 3:46 AM EST 02/10/2023 4:12 AM EST Narrative Resulting Agency Comment Spec In Lab Bobby Edmonds MD CHEMISTRY ORDERABLES Performing Organization Address [facility] de Phone Number [facility] [place] [address] * (ABNORMAL) Basic Metabolic Panel (non-fasting) (02/10/2023 3:46 AM EST) Glucose 103 65 - 199 mg/dL [facility] Comment:Diabetes: >=200 mg/d L plus symptoms Blood Urea Nitrogen 20(H) 8 - 18 mg/dL [facility] Creatinine 1.31(H) 0.70 - 1.20 mg/dL [facility] Sodium 141 135 - 145 mmol/L [facility] Potassium 3.4(L) 3.5 - 5.0 mmol/L [facility] Comment: Please note: ??Patients with WBC >100,000 may have falsely elevated Potassium levels. ??For accurate Potassium quantification in these patients send serum separator tube (gold top) for subsequent determinations. ??Contact the Clinical Chemistry Laboratory if there are any questions. Chloride 105 98 - 107 mmol/L [facility] Carbon Dioxide 23 22 - 31 mmol/L [facility] Anion Gap 13 5 - 15 mmol/L [facility] Calcium 9.2 8.5 - 10.5 mg/dL [facility] Est Glomerular Filtration Rate 49(L) >=60 mL/min/1. 73 m?? [facility] Comment: This patient's estimated GFR [...] Edmonds MD CHEMISTRY ORDERABLES Performing Organization Address [facility] Co de Phone Number [facility] [place] [address] * Potassium (02/09/2023 2:46 PM EST) Potassium 4.0 3.5 - 5.0 mmol/L [facility] Comment: Please note: ??Patients with WBC [...] MD CHEMISTRY ORDERABL ES Performing Organization Address [facility] Co de Phone Number [facility] [place] [address] * ECHO LMTD W CONTRAST W LMTD SPEC DOPP COLOR DOPP (02/09/2023 9:01 AM EST) Anatomical Region Laterality Modality Cardiac Other 02/09/2023 8:19 AM EST Narrative 02/09/2023 9:39 AM EST [address] [place] [id number] ? Echocardiogram Report Name: ROHAN, LOIDA ? Study Date: 02/09/2023 08:19 AMBP: 98/57 mmHg ? Patient Location: [facility] : 1970 ? Height: 163 cm ? Account: [id number] Age: 52 yrs ? Weight: 99 kg Gender: Female ?BSA: 2.0 m2 Ordering Physician: BOBBY EDMONDS Referring Physician: AJ HARTMAN Performed By: Aaron Herr RDCS Reason For Study: NSTEMI (non-ST elevated myocardial infarction) Interpreting Fellow: Ciro Lovell. Exam Location: [facility]. Interpretation Summary Left ventricular systolic function [...] that was done by the on-call overnight tray service worker, there is no significant change in biventricular function. Procedure Limited - 85814. Image enhancement Definity was used for left [...] Note Manish Benitez MD - 02/09/2023 [address] [place] [address] Echocardiogram Report Name: LOIDA MADRIGAL Study Date: 308:19 AMBP: 98/57 mmHg Patient Location: [id number] : 1970 Height: 163 cm Account: [id number] Age: 52 yrs Weight: 99 kg Gender: Female BSA: 2.0 m2 Ordering Physician: BOBBY EDMONDS Referring Physician: AJ HARTMAN Performed By: Aaron Herr RDCS Reason For Study: NSTEMI (non-ST elevated myocardial infarction) Interpreting Fellow: Ciro Lovell. Exam Location: [facility]. Interpretation Summary Left ventricular systolic function [...] change in biventricular function. Procedure Limited - 00272. Image enhancement Definity was used for leftventricular [...] * (ABNORMAL) Troponin (02/09/2023 8:01 AM EST) [facility] Troponin-T, High Sensitivity 27(H) <=14 ng/L [facility] Comment: This patient's troponin T concentration [...] troponin value can be found in the [facility] Laboratory Test Catalog Troponin - [facility] Test Catalog Reference: [place] Definition of Myocardial Infarction. Journal of the [place] [employer] 2018;72:3745-4524 Blood 02/09/2023 8:01 AM EST 02/09/2023 8:06 AM EST Narrative Resulting Agency Comment Spec In Lab Itz Bhardwaj MD CHEMISTRY ORDERABL ES Performing Organization Address [facility] Co de Phone Number [facility] [place] [address] * CRP, acute inflammation (02/09/2023 3:55 AM EST) C-Reactive Protein <3.0 <=4.9 mg/L [facility] Blood Venous Draw / Unknown 02/09/2023 3:55 AM EST 02/09/2023 4:07 AM EST Narrative Resulting Agency Comment Spec In Lab Grady Metcalf MD CHEMISTRY ORDERABLES Performing Organization Address [facility] de Phone Number [facility] [place] [address] * Sedimentation rate (02/09/2023 3:55 AM EST) Pathologist [facility] Sedimentation Rate Automated 15 2 - 39 mm/hr [facility] Comment: Effective February 15, 2019 new [...] HEMATOLOGY ORDERABLE S Performing Organization Address City/[facility] Co de Phone Number [facility] [place] [address] * Differential, Automated (02/09/2023 3:55 AM EST) Neutrophil % 54.3 % [facility] Neutrophil Absolute 3.66 1.70 - 6.10 x10(3)/mcL [facility] Lymph % 32.4 % [facility] Lymphocytes Abs 2.2 0.9 - 3.2 x10(3)/[facility] Monocyte % 8.3 % [facility] Monocyte Abs 0.6 0.3 - 0.9 x10(3)/[facility] Eos % 4.1 % [facility] Eosinophils Abs 0.3 0.0 - 0.4 x10(3)/[facility] Basophil % 0.6 % [facility] Baso Absolute 0.0 0.0 - 0.1 x10(3)/[facility] Immature Gran % 0.30 % [facility] Comment: Immature granulocytes(IG's)percentage and absolute count will include metamyelocytes, myelocytes, and promyelocytes. Blood smears from CBCs yielding IG's will be scanned manually for concordance. If this scan disagrees with the automated IG or if promyelocytes are noted, a manual differential will be performed. Immature Gran Absolute 0.02 0.00 - 0.04 x10(3)/[facility] Blood 02/09/2023 3:55 AM EST 02/09/2023 4:06 AM EST Narrative Resulting Agency Comment Spec In Lab German Bianchi MD HEMATOLOGY ORDERABL ES [facility] [place] [address] * Hemogram (02/09/2023 3:55 AM EST) White Blood Cell 6.8 4.0 - 9.5 x10(3)/[facility] Red Blood Cell 4.53 4.00 - 5.21 x10(6)/[facility] Hemoglobin 14.2 11.7 - 15.5 g/dL [facility] Hematocrit 41.2 35.7 - 45.8 % [facility] Mean Cell Volume 90.9 82.6 - 94.4 fL [facility] Mean Cell Hemoglobin 31.3 27.1 - 32.0 pg [facility] Mean Cell Hemoglobin Concentration 34.5 31.7 - 35.0 g/dL [facility] Platelet 237 145 - 357 x10(3)/[facility] RDW Standard Deviation 41.1 37.0 - 46.0 fL [facility] RDW coefficient of variation 12.4 11.5 - 14.1 % [facility] Mean Platelet Volume 11.2 7.6 - 12.9 fL [facility] NRBC% auto 0.0 % [facility] NRBC Absolute 0.000 0.000 - 0.000 x10(3)/[facility] Blood 02/09/2023 3:55 AM EST 02/09/2023 4:06 AM EST Narrative Resulting Agency Comment Spec In Lab German Bianchi MD HEMATOLOGY ORDERABL ES [facility] [place] [address] * (ABNORMAL) Heparin (unfractionated) Level (02/09/2023 3:55 AM EST) UF Heparin 1.44(Crit ical) IU/mL [facility] Comment: Critical Result called by ?? [...] Lab Bobby Edmonds MD HEMATOLOGY ORDERABLE S [facility] [place] [address] * Magnesium (02/09/2023 3:55 AM EST) Magnesium 1.04 0.69 - 1.07 mmol/L [facility] Blood 02/09/2023 3:55 AM EST 02/09/2023 4:06 AM EST Narrative Resulting Agency Comment Spec In Lab Bobby Edmonds MD CHEMISTRY ORDERABLES [facility] [place] [address] * (ABNORMAL) Basic Metabolic Panel (non-fasting) (02/09/2023 3:55 AM EST) Glucose 103 65 - 199 mg/dL [facility] Comment:Diabetes: >=200 mg/d L plus symptoms Blood Urea Nitrogen 19(H) 8 - 18 mg/dL [facility] Creatinine 1.13 0.70 - 1.20 mg/dL [facility] Sodium 142 135 - 145 mmol/L [facility] Comment:result rechecked- Potassium 2.9(Criti edy) 3.5 - 5.0 mmol/L [facility] Comment: Called by: , Read back by: Zoila Bhatt, Date/Time:02/09/23 04:43. Please note: ??Patients with WBC >100,000 may have falsely elevated Potassium levels. ??For accurate Potassium quantification in these patients send serum separator tube (gold top) for subsequent determinations. ??Contact the Clinical Chemistry Laboratory if there are any questions. Chloride 103 98 - 107 mmol/L [facility] Comment:result rechecked-[facility] Carbon Dioxide 24 22 - 31 mmol/L [facility] Comment:result rechecked-[facility] Anion Gap 15 5 - 15 mmol/L [facility] Calcium 9.4 8.5 - 10.5 mg/dL [facility] Est Glomerular Filtration Rate 58(L) >=60 mL/min/1. 73 m?? [facility] Comment: This patient's estimated GFR [...] In Lab Bobby Edmonds MD CHEMISTRY ORDERABLES [facility] [place] [address] * Differential, Automated (02/08/2023 10:08 PM EST) Neutrophil % 55.7 % [facility] Neutrophil Absolute 4.29 1.70 - 6.10 x10(3)/[facility] Lymph % 33.0 % [facility] Lymphocytes Abs 2.5 0.9 - 3.2 x10(3)/[facility] Monocyte % 7.7 % [facility] Monocyte Abs 0.6 0.3 - 0.9 x10(3)/[facility] Eos % 2.9 % [facility] Eosinophils Abs 0.2 0.0 - 0.4 x10(3)/[facility] Basophil % 0.6 % [facility] Baso Absolute 0.0 0.0 - 0.1 x10(3)/[facility] Immature Gran % 0.10 % [facility] Comment: Immature granulocytes(IG's)percentage and absolute count will include metamyelocytes, myelocytes, and promyelocytes. Blood smears from CBCs yielding IG's will be scanned manually for concordance. If this scan disagrees with the automated IG or if promyelocytes are noted, a manual differential will be performed. Immature Gran Absolute 0.01 0.00 - 0.04 x10(3)/[facility] Blood 02/08/2023 10:0 8 PM EST 02/08/2023 10:18 PM EST Narrative Resulting Agency Comment Spec In Lab German Bianchi MD HEMATOLOGY ORDERABL ES [facility] [place] [address] * (ABNORMAL) Hemogram (02/08/2023 10:08 PM EST) White Blood Cell 7.7 4.0 - 9.5 x10(3)/mc L [facility] Red Blood Cell 4.93 4.00 - 5.21 x10(6)/mc L [facility] Hemoglobin 15.6(H) 11.7 - 15.5 g/dL [facility] Hematocrit 46.9(H) 35.7 - 45.8 % [facility] Mean Cell Volume 95.1(H) 82.6 - 94.4 fL [facility] Mean Cell Hemoglobin 31.6 27.1 - 32.0 pg [facility] Mean Cell Hemoglobin Concentration 33.3 31.7 - 35.0 g/dL [facility] Platelet 201 145 - 357 x10(3)/mc L [facility] RDW Standard Deviation 45.0 37.0 - 46.0 fL [facility] RDW coefficient of variation 12.8 11.5 - 14.1 % [facility] Mean Platelet Volume 11.3 7.6 - 12.9 fL [facility] NRBC% auto 0.0 % [facility] NRBC Absolute 0.000 0.000 - 0.000 x10(3)/mc L [facility] Blood 02/08/2023 10:0 8 PM EST 02/08/2023 10:18 PM EST Narrative Resulting Agency Comment Spec In Lab German Bianchi MD HEMATOLOGY ORDERABL ES [facility] [place] [address] * (ABNORMAL) Troponin (02/08/2023 10:08 PM EST) Troponin-T, High Sensitivity 23(H) <=14 ng/L [facility] Comment: This patient's troponin T concentration [...] troponin value can be found in the [facility] Laboratory Test Catalog Troponin - [facility] Laboratory Test Catalog Reference: [place] Definition of Myocardial Infarction. Journal of the [place] [employer] 2018;72:3213-3295 Blood 02/08/2023 10:0 8 PM EST 02/08/2023 10:18 PM EST Narrative Resulting Agency Comment Spec In Lab Bobby Edmonds MD CHEMISTRY ORDERABLES Performing Organization Address City/[facility] Co de Phone Number [facility] [place] [address] * (ABNORMAL) Magnesium (02/08/2023 10:08 PM EST) Magnesium 1.15(H) 0.69 - 1.07 mmol/L [facility] Blood 02/08/2023 10:0 8 PM EST 02/08/2023 10:18 PM EST Narrative Resulting Agency Comment Spec In Lab Bobby Edmonds MD CHEMISTRY ORDERABLES Performing Organization Address City/[facility]/ZIP Co de Phone Number [facility] [place] [address] * (ABNORMAL) Basic Metabolic Panel (non-fasting) (02/08/2023 10:08 PM EST) Glucose 106 65 - 199 mg/dL [facility] Comment:Diabetes: >=200 mg/d L plus symptoms Blood Urea Nitrogen 17 8 - 18 mg/dL [facility] Creatinine 0.96 0.70 - 1.20 mg/dL [facility] Sodium 151(H) 135 - 145 mmol/L [facility] Potassium 3.4(L) 3.5 - 5.0 mmol/L [facility] Comment: Please note: ??Patients with WBC >100,000 may have falsely elevated Potassium levels. ??For accurate Potassium quantification in these patients send serum separator tube (gold top) for subsequent determinations. ??Contact the Clinical Chemistry Laboratory if there are any questions. Chloride 91(L) 98 - 107 mmol/L [facility] Carbon Dioxide 12(L) 22 - 31 mmol/L [facility] Anion Gap 48(H) 5 - 15 mmol/L [facility] Calcium 8.9 8.5 - 10.5 mg/dL [facility] Est Glomerular Filtration Rate 71 >=60 mL/min/1. 73 m?? [facility] Comment: This patient's estimated GFR was [...] In Lab Bobby Edmonds MD CHEMISTRY ORDERABLES [facility] [place] [address] * (ABNORMAL) pro-Brain Natriuretic Peptide (02/08/2023 10:08 PM EST) NT-proBNP 850(H) <=124 pg/mL [facility] Blood 02/08/2023 10:0 8 PM EST 02/08/2023 10:18 PM EST Narrative Resulting Agency Comment Spec In Lab Bobby Edmonds MD CHEMISTRY ORDERABLES Performing Organization Address City/[facility] Co de Phone Number [facility] [place] [address] * TSH (02/08/2023 10:08 PM EST) Thyroid Stimulating Hormone 4.00 0.27 - 4.20 mcIU/mL [facility] Comment: Reference Interval (mcIU/mL): Females: ??First Trimester: 0.23-3.88 ??Second Trimester: 0.22-3.90 ??Third Trimester: 0.44-4.66 Blood 02/08/2023 10:0 8 PM EST 02/08/2023 10:18 PM EST Narrative Resulting Agency Comment Spec In Lab Bobby Edmonds MD CHEMISTRY ORDERABLES Performing Organization Address City/[facility] Co de Phone Number [facility] [place] [address] * EKG 12 Lead (02/08/2023 6:38 PM EST) Ventricular rate 56 BPM MUSE SYSTEM Atrial Rate 56 BPM MUSE SYSTEM P-R Interval 182 ms MUSE SYSTEM QRS Duration 88 ms MUSE SYSTEM Q-T Interval 498 ms MUSE SYSTEM QTC Calculated (Bezet) 480 ms MUSE SYSTEM Calculated P [place] 27 degrees MUSE SYSTEM Calculated R [place] 40 degrees MUSE SYSTEM Calculated T [place] 15 degrees MUSE SYSTEM INTERPRETATION Sinus bradycardia Possible Lateral infarct , age undetermined ST & T wave abnormality, consider inferior ischemia Abnormal ECG When compared with ECG of 17-NOV-2022 09:19, T wave inversion less evident in Inferior leads Nonspecific T wave abnormality, improved in Anterolateral leads QT has lengthened Confirmed by MD YOO SALVATORE ([id number]) on 02/09/2023 2:20:32 PM MUSE SYSTEM 02/08/2023 6:38 PM EST 02/09/2023 2:20 PM EST Unknown ECG ORDERABLES [facility] documented in this encounter Visit Diagnoses [...] 2103 (Given - Provider: Zoila Bhatt RN) 09 (Given - Provider: Opal Traore RN)2110 (Given - Provider: Zoila Bhatt RN) 0858 (Given - Provider: Malia Mcintyre RN) atorvastatin [...] Discontinued, Routine 936 (Given - Provider: Opal Traore RN)2102 (Given - Provider: Zoila Bhatt RN) 899 (Given - Provider: Opal Traore RN) DULoxetine DR (Cymbalta) capsule 60 mg [...] Routine 0535 (Given - Provider: Zoila Bhatt RN)936 (Given - Provider: Opal Traore, ERWIN)1401 (Given - Provider: Opal Traore RN) potassium [...] Zoila Bhatt RN)1023 (Given - Provider: Opal Traore, ERWIN) ranolazine ER (Ranexa) tablet 500 mg 500 mg, Oral, 2 TIMES DAILY, First dose on Wed02/10/23 at 1130, Until Discontinued, DO NOT CRUSH OR OPEN. Baseline EKG required before administration., Routine, Has baseline EKG been obtained? Yes 1201 (Given - Provider: Opal Traore RN)2111 (Given - Provider: Zoila Bhatt RN) 09 (Given - Provider: Mlaia Mcintyre, ERWIN) rOPINIRole (Requip) tablet 2 mg 2 mg, Oral, USER SPECIFIED (2 times per day), First dose on Wed02/08/23 at 2200, Until Discontinued, Routine 1538 (Given - Provider: Opal Traore RN)210 (Given - Provider: Zoila Bhatt RN) 1607 (Given - Provider: Opal Traore, ERWIN)211 (Given - Provider: Zoila Bhatt RN) sodium chloride 0.9 % (flush) (BD PosiFlush Normal Saline 0.9) flush 5 mL 5 mL, Intravenous, 2 TIMES DAILY, First dose on Wed02/08/23 at 2215, Until Discontinued, Routine 0942 (Given - Provider: Opal Traore RN)210 (Given - Provider: Zoila Bhatt RN) 09 (Given - Provider: Opal Traore, ERWIN)211 (Given - Provider: Zoila Bhatt RN) 0859 (Given - Provider: Malia Mcintyre, ERWIN) spironolactone (Aldactone) tablet 25 mg 25 mg, Oral, DAILY, First dose on Wed02/09/23 at 1015, Until Discontinued, DO NOT SPLIT, CRUSH OR OPEN, Routine 0937 (Given - Provider: Opal Traore RN) 0900 (Given - Provider: Opal Traore RN) 0858 (Given - Provider: Malia Mcintyre, ERWIN) topiramate (Topamax) tablet 100 mg 100 mg, Oral, NIGHTLY, First dose on Wed02/09/23 at 2100, Until Discontinued, Routine 2102 (Given - Provider: Zoila Bhatt, ERWIN) 2110 (Given - Provider: Zoila Bhatt, ERWIN) torsemide (Demadex) tablet 20 mg 20 mg, Oral, DAILY, First dose on Wed02/11/23 at 0900, Until Discontinued, Routine 857 (Given - Provider: Malia Mcintyre, ERWIN) Continuous Medication Order 02/09/2023 02/10/2023 02/11/2023 heparin [...] Heparin UFH Level - Per Protocol, Routine 0434 (Hold - Provider: Zoila Bhatt RN - Reason: See comment - Comment: UFH 1.44)0536 (Restarted - Provider: Zoila Bhatt RN)1124 (Stopped - Provider: Opal Traore, RN - Comment: verbal order to stop) [...] the last 24 to 72 hours., Routine 194 (Given - Provider: Zoila Bhatt RN) 08 (Given - Provider: Opal Traore, ERWIN - Comment: 06/15 CPBP 106/56) perflutren lipid microspheres (Definity) injection 1.2 mL (COMPLETED) 1.2 mL, Intravenous, ONCE PRN, 1 dose, Starting on Wed02/09/23 at 0901, Until Wed02/09/23 at 0901, Other, Routine 900 (Given - Provider: Aaron Herr) sodium chloride 0.9 % (flush) (BD PosiFlush Normal Saline 0.9) flush 5-20 mL 5-20 mL, Intravenous, EVERY 1 MIN PRN, Starting on Wed02/08/23 at 2122, Until Aura 02/11/23 at 1807, flush, Flush pertains to all [...] Routine documented in this encounter Care Teams [employer] Relationship Specialty Start Date End Date Polo Pearce PA [address] [place] [address] PCP - General Internal Medicine 06/09/21 documented as of this encounter
--- OUTSIDE RECORDS SUMMARY | 2023-10-20 19:58 | XMS_ITS | Encounter Summary ---
[place] [address] Care Team Providers Care Medical Office Receptionist Name Role Phone Polo Pearce Primary Care Provider [phone] Reason for Referral * Diagnostic Test (Routine) - Closed Specialty Diagnoses / Procedures Referred By Jayant harris Referred To Contact Diagnoses Pulmonary embolism, unspecified chronicity, unspecified pulmonary embolism type, unspecified whether acute cor pulmonale present Procedures Duplex Study for DVT, Bilat legs Mamie Marx APRN [facility] [place] [address] [facility] [address] [address] Referral ID Status Reason Start Date Expiration Date V isits Requested Visits Authorized [id number] Closed Specialty Service Requested 07/31/2022 07/31/2023 1 1 Encounter Details Date Type Department Care Team (Late st Contact Info) Description 07/31/2022 Orders Only [place] [address] [facility] [place] [address] Pulmonary embolism, unspecified chronicity, unspecified pulmonary embolism [...] AM EDT Hospital Encounter [place] [address] Mary Reyes [facility] [place] [address] 10/21/2023 11:30 AM EDT Appointment [place] [address] Mary Reyes [facility] [place] [address] 10/21/2023 12:30 PM EDT Appointment [place] [address] [place] [address] 10/21/2023 1:30 PM EDT Appointment [place] [address] Mary Reyes [facility] [place] [address] 10/21/2023 2:30 PM EDT Appointment [place] [address] Mary Reyes [facility] [place] [address] 10/26/2023 4:00 PM EDT Office Visit Cardiology at [address] [address] [facility] [place] [address] 10/28/2023 9:00 AM EDT Office Visit [place] [address] 10/29/2023 10:00 AM EDT Clinical Support [place] [address] 10/29/2023 10:15 AM EDT Procedure visit [place] [address] 11/01/2023 5:00 PM EDT Office Visit [place] [phone] Selene Browning, PhD [facility] [place] [address] 11/22/2023 4:40 PM EDT Office Visit Cardiology at [address] [phone] [facility] [place] [address] 12/13/2023 10:00 AM EDT Clinical Support [place] [phone] [facility] [place] [address] documented as of this encounter Results * Duplex Study for DVT, Bilat legs (10/20/2022 8:06 AM EDT) VB Text Report Department: Vascular Surgery Lab Patient: [id number] (LOIDA ROQUE) CPT: 92720 Referring Physician: MAMIE MARX ?? Phone: Indications: [...] [facility] 10/20/2022 8:06 AM EDT Mamie Marx [employer] [facility] documented in this encounter Visit Diagnoses Diagnosis Pulmonary embolism, unspecified chronicity, unspecified pulmonary embolism type, unspecified whether acute cor pulmonale present documented in this encounter Care Teams Medical Office Receptionist Relationship Specialty Start Date End Date Polo Pearce PA Sb [address] [place] [address] PCP - General Internal Medicine 06/09/21 documented as of this encounter
--- OUTSIDE RECORDS SUMMARY | 2023-10-20 19:58 | XMS_ITS | Encounter Summary ---
[place] [address] Care Team Providers Care Proofer Black And White Name Role Phone Polo Pearce Primary Care Provider [phone] Reason for Visit * Auth/Cert (Routine) Specialty Diagnoses / Procedures Referred By Jayant harris Referred To Contact Diagnoses NSTEMI (non-ST elevated myocardial infarction) NSTEMI Procedures EMERGENCY IPI Susannah Gómez MD [facility] [place] [address] [facility] [place] Referral ID Status Reason Start Date Expiration Date Visits Re quested Visits Authorized [id number] 1 1 Encounter Details Date Type Department Care Team (Latest Contact Info) Description 09/26/2022 3:42 PM EDT - 09/28/2022 5:02 PM EDT Hospital Encounter Heart and Vascular Unit Level 4 [place] [address] Susannah Gómez MD [facility] [place] [address] Non-ST elevation myocardial infarction (NSTEMI) Discharge Disposition: [...] prior to transfer. On presentation [place] [facility] [place] notes some constant chest pain that is approx 5/10 in severity centered over left chest. She has no shortness of breath or PND. On a regular day patient could walk about 30 feet on a flat surface before becoming shortness of breath. 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 She is under a considerable amount of [...] days. Refills: 0 fluticasone propionate 50 mcg/actuation [place], Suspension Commonly known as: Flonase 1 spray [...] 4:00 PM Jaspreet Kinsey MD Cardiology at [place] Arrive at: [facility] [address] [phone] 10/20/2022 8:00 AM Florencia Callahan [place] Vascular Lab at [facility] Arrive at: [employer] [facility] 3V [phone] 10/20/2022 9:00 AM Umberto Abbott MD Vascular Surgery at [facility] Arrive at: [employer] [facility] 3V [phone] Provider Contact Information: JOCY Franco [facility] [id number] Discharge References/Attachments: Discharge References/Attachments None documented in [...] October 08, 2022 at 4:00 pm in [place]). MEDICATION INSTRUCTIONS: At discharge, START - amlodipine [...] as needed. fluticasone propionate (FLONASE) 50 mcg/actuation [place], Suspension 1 spray by Each Nare route [...] EDT CARDIOLOGY S2 Daily Progress Note Pager [phone] Admit Date: 09/26/2022 Encounter Date: September 27, [...] Chest pain improved en route to [facility], some improvement with nitro. Overnight: No acute [...] prior to transfer. On presentation to [facility] patient notes some constant chest pain that is approx 5/10 in severity centered over left chest. She has no shortness of breath or PND. On a regular day patient could walk about 30 feet on a flat surface before becoming shortness of breath. 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 She is under a considerable amount of [...] 30 DAYS fluticasone propionate (FLONASE) 50 mcg/actuation [place], Suspension 1 spray, Each Nare, DAILY gabapentin [...] Holman MD Internal Medicine, PGY-1 Cardiology M1-S1, #[id number] Cardiology M1-S2, #[id number] 09/26/2022, 6:07 PM Cardiology Staff Addendum Loida [...] COVID test: Lab Results Component Value Date [id number] Not Detected 06/13/2021 Present on Admission: NSTEMI (non-ST elevated myocardial infarction) Hospitalizations Within the Past 30 Days: no previous admission in last 30 days Patient receiving hospital care under Inpatient status. Admission order reviewed. Health/Prescription Coverage: Primary Insurance: [employer] [place] Payor: [employer] [facility] [place] / Plan: [place] EXCHANGE / Product Type: *No Product type* / Secondary Insurance: N/A ; Prescription Coverage: Preferred Pharmacy: [facility] - [place], [place] - [address] [facility] [address] [facility] [address] [place], [place] - [address] [facility] [address] [facility] [address] [facility] [address] Advance Care Planning: Attempt Cardiopulmonary Resuscitation - Inpatient <no information> - Current Functional Ability: Independent Functional Status Prior to Admission: Home Environment: . Current Living Arrangements: home/apartment/condo. Accessibility Concerns: . Current DME: [address] [facility] [address] Social & Family Supports: All names listed [...] private vehicle when medically ready. Registered Nurse Business Analyst Project Manager / Medical Donation Professional will continue to follow patient???s progress and remain available if situation changes for coordination of care, psychosocial support and/or discharge planning. Office of Care Management Fab GALARZA, RN Case Management [phone] * Plan of Care - Antonio Swann [...] AM EDT Hospital En[place] [address] [facility] [place] [address] 10/21/2023 11:30 AM EDT Appointment [place] [address] [facility] [place] [address] 10/21/2023 12:30 PM EDT Appointment [place] [address] [facility] [place] [address] 10/21/2023 1:30 PM EDT Appointment [place] [address] [facility] [place] [address] 10/21/2023 2:30 PM EDT Appointment [place] [address] [facility] [place] [address] 10/26/2023 4:00 PM EDT Office Visit Cardiology at [address] [phone] Jaspreet Kinsey MD [facility] [place] [address] 10/28/2023 9:00 AM EDT Office [place] [address] 10/29/2023 10:00 AM EDT Clinical [place] [address] 10/29/2023 10:15 AM EDT Procedure [place] [address] 11/01/2023 5:00 PM EDT Office [place] [address] Selene Browning, PhD [facility] [place] [address] 11/22/2023 4:40 PM EDT Office Visit Cardiology at [address] [phone] Porsha Mcdaniels MD [facility] [place] [address] 12/13/2023 10:00 AM EDT Clinical Support [place] [address] Lucero Romero, LAVA [facility] [place] [address] documented as of this encounter Procedures Procedure Name Priority Date/Time Associated Diagnosis Comments BLOOD GAS VENOUS ([facility]) Routine 3:39 PM EDT EKG 12-LEAD STAT 09/28/2022 1:58 PM EDT Non-ST elevation myocardial infarction (NSTEMI) CT ANGIOGRAM CORONARY ARTERIES Routine 09/28/2022 8:37 AM EDT TROPONIN - SERIES STAT 09/28/2022 6:5 6 AM EDT TROPONIN - SERIES STAT 09/28/2022 3:4 9 AM EDT HEMOGRAM Routine 09/28/2022 3:49 AM EDT DIFFERENTIAL, AUTOMATED Routine 09/29/19 3:49 AM EDT CBC (WITH DIFF) Routine 09/28/2022 3:49 AM EDT BASIC METABOLIC PANEL Routine 09/28/2022 3:49 AM EDT XR CHEST ONE VIEW Routine 09/28/2022 3:3 7 AM EDT EKG 12-LEAD Routine 09/28/2022 3:11 AM EDT Non-ST elevation myocardial infarction (NSTEMI) ECHO COMPLETE W CONTRAST Routine 09/27/2022 9:42 AM EDT Non-ST elevation myocardial infarction (NSTEMI) TROPONIN - SERIES STAT 09/27/2022 3:0 7 AM EDT HEMOGRAM Routine 09/27/2022 3:07 AM EDT DIFFERENTIAL, AUTOMATED Routine 09/28/19 3:07 AM EDT CBC (WITH DIFF) Routine 09/27/2022 3:07 AM EDT HEMOGLOBIN A1C Routine 09/27/2022 3:07 AM EDT LIPID PANEL (REFLEX DIRECT LDL) Routine 09/27/2022 3:07 AM EDT BASIC METABOLIC PANEL Routine 09/27/2022 3:07 AM EDT TROPONIN - SERIES STAT 09/26/2022 8:5 5 PM EDT HEMOGRAM Routine 09/26/2022 5:50 PM EDT DIFFERENTIAL, AUTOMATED Routine 09/27/19 5:50 PM EDT GOLD TUBE HOLD Routine 09/26/2022 5:50 PM EDT HC PARTIAL THROMBOPLASTIN TIME Routine 09/26/2022 5:50 PM EDT PROTHROMBIN TIME Routine 09/26/2022 5:50 PM EDT CBC (WITH DIFF) Routine 09/26/2022 5:50 PM EDT TSH Routine 09/26/2022 5:50 PM EDT PRO-BRAIN NATRIURETIC PEPTIDE Routine 09/26/2022 5:50 PM EDT MAGNESIUM Routine 09/26/2022 5:50 PM EDT CALCIUM Routine 09/26/2022 5:50 PM EDT BASIC METABOLIC PANEL Routine 09/26/2022 5:50 PM EDT EKG 12-LEAD Routine 09/26/2022 5:33 PM EDT TROPONIN - SERIES STAT 09/26/2022 5:0 1 PM EDT CRP, ACUTE INFLAMMATION STAT 09/27/19 5:01 PM EDT documented in this encounter Results * Blood Gas Venous ([facility]) (09/28/2022 3:39 PM EDT) pH, Venous 7.32 7.32 - 7.42 [facility] PCO2, Venous 45 41 - 51 mmHg [facility] PO2, Venous 30 25 - 40 mmHg [facility] Bicarbonate, Venous 22.8 mmol/L [facility] Base Excess, Venous -3.3 mmol/L [facility] Hgb Blood Gas 15.2 11.7 - 15.5 g/dL [facility] Oxyhemoglobin, Venous 52.4 % [facility] Carboxyhemoglob in, Venous 1.0 % [facility] Comment: Nonsmokers: 0.5-1.5% COHB Smokers: Variable, but usually less than 10% Toxic: 20-30% COHB Lethal: Greater than 60% COHB Methemoglobin, Venous 0.3 <=1.5 % [facility] Na Whole Blood 139 135 - 145 mmol/L [facility] K Whole Blood 4.6 3.5 - 5.0 mmol/L [facility] Comment: Please note: Patients with WBC >100,000 may have falsely elevated Potassium levels. Contact the Clinical Chemistry Laboratory if there are any questions. ICa Whole Blood 1.23 1.15 - 1.33 mmol/L [facility] Comment: Note: ??Total bilirubin higher than 20 mg/dL may lead to falsely low ionized calcium. CL Whole Blood 104 98 - 107 mmol/L [facility] Gluc Whole Bld 87 65 - 199 mg/dL [facility] Comment:Diabetes: >=200 mg/d L plus symptoms Lactate WB 1.3 0.5 - 2.2 mmol/L [facility] Blood Gas Source Venous [facility] Blood Venous Draw / Unknown 09/28/2022 3:39 PM EDT 09/28/2022 3:50 PM EDT Narrative Resulting Agency Comment Spec In Lab Ciro Lovell MD CHEMISTRY ORDERABLES Performing Organization Address City/State/[facility] Co de Phone Number [facility] [place] [address] * EKG 12 Lead (09/28/2022 1:58 PM EDT) Ventricular rate 57 BPM MUSE SYSTEM Atrial Rate 57 BPM MUSE SYSTEM P-R Interval 180 ms MUSE SYSTEM QRS Duration 86 ms MUSE SYSTEM Q-T Interval 414 ms MUSE SYSTEM QTC Calculated (Bezet) 402 ms MUSE SYSTEM Calculated P Monument 40 degrees MUSE SYSTEM Calculated R Monument 67 degrees MUSE SYSTEM Calculated T Monument -56 degrees MUSE SYSTEM INTERPRETATION Sinus bradycardia [...] ? Electronically signed by: Jose Gallegos MD, [facility] [place] [facility] ([phone]), at 09/28/2022 4:58 PM Narrative 09/28/2022 4:58 [...] Ricardo H, Ashish R, et al. ??Distribution of [...] Silva H, Ashish R, et al. ??Distribution ofcoronary [...] first. Electronically signed by: Jose Gallegos MD, [facility] [place] [facility]([phone]), at 09/28/2022 4:58 PM Susannah Gómez MD IMG CT ORDERABLES * (ABNORMAL) Troponin (09/28/2022 6:56 AM EDT) Pathologist [facility] Troponin-T, High Sensitivity 21(H) <=14 ng/L [facility] Comment: This patient's troponin [...] troponin value can be found in the [facility] Test Catalog Troponin - [facility] Test Catalog Reference: Fourth Sealy Definition of Myocardial Infarction. Journal of the [place] [employer] 2018;72:4944-3021 Blood 09/28/2022 6:56 AM EDT 09/28/2022 7:01 AM EDT Narrative Resulting Agency Comment Spec In Lab Susannah Gómez MD CHEMISTRY ORDERABLES [facility] [place] [address] * Differential, Automated (09/28/2022 3:49 AM EDT) Pathologist [facility] Neutrophil % 45.9 % [facility] Neutrophil Absolute 2.92 1.70 - 6.10 x10(3)/[facility] Lymph % 40.5 % [facility] Lymphocytes Abs 2.6 0.9 - 3.2 x10(3)/[facility] Monocyte % 8.9 % [facility] Monocyte Abs 0.6 0.3 - 0.9 x10(3)/[facility] Eos % 3.3 % [facility] Eosinophils Abs 0.2 0.0 - 0.4 x10(3)/[facility] Basophil % 1.1 % [facility] Baso Absolute 0.1 0.0 - 0.1 x10(3)/[facility] Immature Gran % 0.30 % [facility] Comment: Immature granulocytes(IG's)percentage and absolute count will include metamyelocytes, myelocytes, and promyelocytes. Blood smears from CBCs yielding IG's will be scanned manually for concordance. If this scan disagrees with the automated IG or if promyelocytes are noted, a manual differential will be performed. Immature Gran Absolute 0.02 0.00 - 0.04 x10(3)/[facility] Blood 09/28/2022 3:49 AM EDT 09/28/2022 4:11 AM EDT Narrative Resulting Agency Comment Spec In Lab Vimal Holman MD HEMATOLOGY ORDERABLE S Performing Organization Address City/State/[facility] Co de Phone Number [facility] [place] [address] * (ABNORMAL) Hemogram (09/28/2022 3:49 AM EDT) White Blood Cell 6.4 4.0 - 9.5 x10(3)/mc L [facility] Red Blood Cell 4.37 4.00 - 5.21 x10(6)/mc L [facility] Hemoglobin 13.7 11.7 - 15.5 g/dL [facility] Hematocrit 41.6 35.7 - 45.8 % [facility] Mean Cell Volume 95.2(H) 82.6 - 94.4 fL [facility] Mean Cell Hemoglobin 31.4 27.1 - 32.0 pg [facility] Mean Cell Hemoglobin Concentration 32.9 31.7 - 35.0 g/dL [facility] Platelet 224 145 - 357 x10(3)/mc L [facility] RDW Standard Deviation 43.1 37.0 - 46.0 fL [facility] RDW coefficient of variation 12.3 11.5 - 14.1 % [facility] Mean Platelet Volume 11.3 7.6 - 12.9 fL [facility] NRBC% auto 0.0 % [facility] NRBC Absolute 0.000 0.000 - 0.000 x10(3)/mc L [facility] Blood 09/28/2022 3:49 AM EDT 09/28/2022 4:11 AM EDT Narrative Resulting Agency Comment Spec In Lab Vimal Holman MD HEMATOLOGY ORDERABLE S [facility] [place] [address] * (ABNORMAL) Troponin (09/28/2022 3:49 AM EDT) Troponin-T, High Sensitivity 25(H) <=14 ng/L [facility] Comment: This patient's troponin [...] troponin value can be found in the [facility] Test Catalog Troponin - [facility] Test Catalog Reference: Fourth Sealy Definition of Myocardial Infarction. Journal of the [place] College [employer]iology 2018;72:6991-0232 Blood 09/28/2022 3:49 AM EDT 09/28/2022 4:11 AM EDT Narrative Resulting Agency Comment Spec In Lab Susannah Gómez MD CHEMISTRY ORDERABLES [facility] [place] [address] * (ABNORMAL) Basic Metabolic Panel (non-fasting) (09/28/2022 3:49 AM EDT) Glucose 97 65 - 199 mg/dL [facility] Comment:Diabetes: >=200 mg/d L plus symptoms Blood Urea Nitrogen 26(H) 8 - 18 mg/dL [facility] Creatinine 1.01 0.70 - 1.20 mg/dL [facility] Sodium 137 135 - 145 mmol/L [facility] Potassium 4.4 3.5 - 5.0 mmol/L [facility] Comment: Please note: ??Patients with WBC >100,000 may have falsely elevated Potassium levels. ??For accurate Potassium quantification in these patients send serum separator tube (gold top) for subsequent determinations. ??Contact the Clinical Chemistry Laboratory if there are any questions. Chloride 108(H) 98 - 107 mmol/L [facility] Carbon Dioxide 18(L) 22 - 31 mmol/L [facility] Anion Gap 11 5 - 15 mmol/L [facility] Calcium 9.0 8.5 - 10.5 mg/dL [facility] Est Glomerular Filtration Rate 67 >=60 mL/min/1. 73 m?? [facility] Comment: This patient's estimated [...] In Lab Susannah Gómez MD CHEMISTRY ORDERABLES [facility] [place] [address] * XR Chest One View (09/28/2022 3:37 [...] first. Electronically signed by: Elina Valdez MD, [facility]([phone]), at 09/28/2022 8:27 AM Susannah Gómez MD IMG DX ORDERABLES * EKG 12 Lead (09/28/2022 3:11 AM EDT) Ventricular rate 45 BPM MUSE SYSTEM Atrial Rate 45 BPM MUSE SYSTEM P-R Interval 196 ms MUSE SYSTEM QRS Duration 90 ms MUSE SYSTEM Q-T Interval 554 ms MUSE SYSTEM QTC Calculated (Bezet) 479 ms MUSE SYSTEM Calculated P Monument 33 degrees MUSE SYSTEM Calculated R [place] 28 degrees MUSE SYSTEM Calculated T Monument 58 degrees MUSE SYSTEM INTERPRETATION Sinus bradycardia Nonspecific ST and T wave abnormality Abnormal ECG When compared with ECG of 26-SEP-2022 17:33, QT has lengthened Confirmed by fellow Vaishnavi Pratt ([id number]) on 09/28/2022 9:30:13 AM Confirmed by MD [place], Gus ([id number]) on 09/28/2022 3:06:42 PM MUSE SYSTEM 09/28/2022 3:11 AM EDT 09/28/2022 3:06 PM EDT Susannah Gómez MD ECG ORDERABLES MUSE SYSTEM * ECHO COMPLETE W CONTRAST (09/27/2022 9:42 AM EDT) EF 60 [facility] SYSTEM Anatomical Region Laterality Modality Cardiac Other 09/27/2022 9:04 AM EDT Narrative 09/27/2022 12:04 PM EDT ? Echocardiogram Report Name: ROHAN, LOIDA ? Study Date: 09/27/2022 09:04 AMBP: 92/56 mmHg ? [facility] 1970 ? [facility]: 163 [facility] ? Account: [id number] Age: 52 yrs ? Weight: 102 kg Gender: Female ?BSA: 2.1 m2 Ordering Physician: SUSANNAH GÓMEZ Referring Physician: SUSANNAH GÓMEZ Performed By: HAIM Arnold Reason For Study: NSTEMI Exam Location: [facility]. Interpretation Summary - Left ventricular systolic function [...] 12/31/21, there is no significant change. Procedure Complete-[id number]. Image enhancement Optison was used for left [...] Location: : 1970 Height: 163 cm Account: [id number] Age: 52 yrs Weight: 102 kg Gender: Female BSA: 2.1 m2 Ordering Physician: SUSANNAH GÓMEZ Referring Physician: SUSANNAH GÓMEZ Performed By: HAIM Arnold Reason For Study: NSTEMI Exam Location: [facility]. Interpretation Summary - Left ventricular systolic function [...] on 12/31/21, there is nosignificant change. Procedure Complete-[id number]. Image enhancement Optison was used for left [...] * Differential, Automated (09/27/2022 3:07 AM EDT) Neutrophil % 49.4 % [facility] Neutrophil Absolute 3.02 1.70 - 6.10 x10(3)/mcL [facility] Lymph % 36.4 % [facility] Lymphocytes Abs 2.2 0.9 - 3.2 x10(3)/[facility] Monocyte % 10.3 % [facility] Monocyte Abs 0.6 0.3 - 0.9 x10(3)/[facility] Eos % 3.0 % [facility] Eosinophils Abs 0.2 0.0 - 0.4 x10(3)/[facility] Basophil % 0.7 % [facility] Baso Absolute 0.0 0.0 - 0.1 x10(3)/[facility] Immature Gran % 0.20 % [facility] Comment: Immature granulocytes(IG's)percentage and absolute count will include metamyelocytes, myelocytes, and promyelocytes. Blood smears from CBCs yielding IG's will be scanned manually for concordance. If this scan disagrees with the automated IG or if promyelocytes are noted, a manual differential will be performed. Immature Gran Absolute 0.01 0.00 - 0.04 x10(3)/[facility] Blood 09/27/2022 3:07 AM EDT 09/27/2022 3:18 AM EDT Narrative Resulting Agency Comment Spec In Lab Vimal Holman MD HEMATOLOGY ORDERABLE S [facility] [place] [address] * (ABNORMAL) Hemogram (09/27/2022 3:07 AM EDT) White Blood Cell 6.1 4.0 - 9.5 x10(3)/mc L [facility] Red Blood Cell 4.20 4.00 - 5.21 x10(6)/mc L [facility] Hemoglobin 13.3 11.7 - 15.5 g/dL [facility] Hematocrit 40.9 35.7 - 45.8 % [facility] Mean Cell Volume 97.4(H) 82.6 - 94.4 fL [facility] Mean Cell Hemoglobin 31.7 27.1 - 32.0 pg [facility] Mean Cell Hemoglobin Concentration 32.5 31.7 - 35.0 g/dL [facility] Platelet 223 145 - 357 x10(3)/mc L [facility] RDW Standard Deviation 45.0 37.0 - 46.0 fL [facility] RDW coefficient of variation 12.7 11.5 - 14.1 % [facility] Mean Platelet Volume 10.5 7.6 - 12.9 fL [facility] NRBC% auto 0.0 % [facility] NRBC Absolute 0.000 0.000 - 0.000 x10(3)/mc L [facility] Blood 09/27/2022 3:07 AM EDT 09/27/2022 3:18 AM EDT Narrative Resulting Agency Comment Spec In Lab Vimal Holman MD HEMATOLOGY ORDERABLE S [facility] [place] [address] * (ABNORMAL) Troponin (09/27/2022 3:07 AM EDT) Troponin-T, High Sensitivity 30(H) <=14 ng/L [facility] Comment: This patient's troponin [...] troponin value can be found in the [facility] Test Catalog Troponin - [facility] Test Catalog Reference: Fourth Sealy Definition of Myocardial Infarction. Journal of the [place] [employer] 2018;72:1882-2858 Blood 09/27/2022 3:07 AM EDT 09/27/2022 3:18 AM EDT Narrative Resulting Agency Comment Spec In Lab Susannah Gómez MD CHEMISTRY ORDERABLES [facility] [place] [address] * (ABNORMAL) Basic Metabolic Panel (non-fasting) (09/27/2022 3:07 AM EDT) Glucose 88 65 - 199 mg/dL [facility] Comment:Diabetes: >=200 mg/d L plus symptoms Blood Urea Nitrogen 31(H) 8 - 18 mg/dL [facility] Creatinine 1.19 0.70 - 1.20 mg/dL [facility] Sodium 138 135 - 145 mmol/L [facility] Potassium 4.3 3.5 - 5.0 mmol/L [facility] Comment: Please note: ??Patients with WBC >100,000 may have falsely elevated Potassium levels. ??For accurate Potassium quantification in these patients send serum separator tube (gold top) for subsequent determinations. ??Contact the Clinical Chemistry Laboratory if there are any questions. Chloride 108(H) 98 - 107 mmol/L [facility] Carbon Dioxide 18(L) 22 - 31 mmol/L [facility] Anion Gap 12 5 - 15 mmol/L [facility] Calcium 8.9 8.5 - 10.5 mg/dL [facility] Est Glomerular Filtration Rate 55(L) >=60 mL/min/1. 73 m?? [facility] Comment: This patient's estimated [...] In Lab Susannah Gómez MD CHEMISTRY ORDERABLES [facility] [place] [address] * Hemoglobin A1c (09/27/2022 3:07 AM EDT) Hemoglobin A1c 5.6 4.3 - 5.6 % [facility] Comment: Reference Range: 4.3 - 5.6% [...] Mellitus, Diabetes Care 2013; 36: Suppl. 1, X27-91 Estimated Average Glucose 114 mg/dL [facility] Comment: eAG equivalents for HbA1c percentages: [...] into estimated average glucose values. ??Diabetes Care 2008:31(8):9485-8199. Blood 09/27/2022 3:07 AM EDT 09/27/2022 3:18 AM EDT Narrative Resulting Agency Comment Spec In Lab Susannah Gómez MD CHEMISTRY ORDERABLES [facility] [place] [address] * Lipid Panel (Reflex Direct LDL) (09/27/2022 3:07 AM EDT) Cholesterol, Total 228 mg/dL [facility] Comment: Lower Risk: <200 mg/dL Average Risk: 200-239 mg/dL Higher Risk: >yk=567 mg/dL Triglyceride 221 mg/dL [facility] Comment: Average Risk/Lower Risk: <150 mg/dL Borderline High Risk: 150-199 mg/dL High Risk: 200-499 mg/dL Very High Risk: >wb=293 mg/dL HDL Cholesterol 33 mg/dL [facility] Comment: Males: ?? Higher Risk: <40 mg/dL Females: ?? Higher Risk: <50 mg/dL LDL Cholesterol 151 mg/dL [facility] Comment: Lowest Risk: <100 mg/dL Lower Risk: 100-129 mg/dL Borderline High Risk: 130-159 mg/dL High Risk: 160-189 mg/dL Very High Risk: >bn=441 mg/dL Cholesterol/HDL Ratio 6.9 ratio [facility] Lipid Interpretation See Note [facility] Comment: Lipid management should be guided by a patient? s ASCVD risk, goals and preferences. ACC/AHA Guidelines recommend high intensity statin if clinical ASCVD or LDL greater than or equal to 190 mg/dL. http://tinyurl.com/BGK-ZUH-Ovwplwmme Adults aged 40-75 with LDL 70-189 mg/dL should have their 10 year ASCVD risk estimated with the ACC/AHA ASCVD risk estimator printing http://tools.acc.org/UDFGE-Xbej-Kxqbiyvmf/ Statin should be discussed if risk greater [...] In Lab Susannah Gómez MD CHEMISTRY ORDERABLES [facility] [place] [address] * (ABNORMAL) Troponin (09/26/2022 8:55 PM EDT) [facility] Troponin-T, High Sensitivity 35(H) <=14 ng/L [facility] Comment: This patient's troponin [...] troponin value can be found in the [facility] Test Catalog Troponin - [facility] Test Catalog Reference: Fourth Sealy Definition of Myocardial Infarction. Journal of the [place] College [employer] 2018;72:2292-8408 Blood 09/26/2022 8:55 PM EDT 09/26/2022 8:59 PM EDT Narrative Resulting Agency Comment Spec In Lab Susannah Gómez [place] [address] * Gold Tube HOLD (09/26/2022 5:50 PM EDT) Gold Hold Sample in lab. [facility] Blood Venous Draw / Unknown 09/26/2022 5:50 PM EDT 09/26/2022 6:13 PM EDT Vimal Holman [place] [address] * Differential, Automated (09/26/2022 5:50 PM EDT) Neutrophil % 53.9 % [facility] Neutrophil Absolute 2.93 1.70 - 6.10 x10(3)/[facility] Lymph % 34.3 % [facility] Lymphocytes Abs 1.9 0.9 - 3.2 x10(3)/[facility] Monocyte % 8.3 % [facility] Monocyte Abs 0.4 0.3 - 0.9 x10(3)/[facility] Eos % 2.4 % [facility] Eosinophils Abs 0.1 0.0 - 0.4 x10(3)/[facility] Basophil % 0.7 % [facility] Baso Absolute 0.0 0.0 - 0.1 x10(3)/[facility] Immature Gran % 0.40 % [facility] Comment: Immature granulocytes(IG's)percentage and absolute count will include metamyelocytes, myelocytes, and promyelocytes. Blood smears from CBCs yielding IG's will be scanned manually for concordance. If this scan disagrees with the automated IG or if promyelocytes are noted, a manual differential will be performed. Immature Gran Absolute 0.02 0.00 - 0.04 x10(3)/[facility] Blood 09/26/2022 5:50 PM EDT 09/26/2022 6:12 PM EDT Narrative Resulting Agency Comment Spec In Lab Vimal Holman MD HEMATOLOGY ORDERABLE S Performing Organization Address City/[facility]/ZIP Co de Phone Number [facility] [place] [address] * Hemogram (09/26/2022 5:50 PM EDT) White Blood Cell 5.4 4.0 - 9.5 x10(3)/[facility] Red Blood Cell 4.58 4.00 - 5.21 x10(6)/[facility] Hemoglobin 14.5 11.7 - 15.5 g/dL [facility] Hematocrit 42.4 35.7 - 45.8 % [facility] Mean Cell Volume 92.6 82.6 - 94.4 fL [facility] Mean Cell Hemoglobin 31.7 27.1 - 32.0 pg [facility] Mean Cell Hemoglobin Concentration 34.2 31.7 - 35.0 g/dL [facility] Platelet 182 145 - 357 x10(3)/[facility] RDW Standard Deviation 43.2 37.0 - 46.0 fL [facility] RDW coefficient of variation 12.6 11.5 - 14.1 % [facility] Mean Platelet Volume 11.3 7.6 - 12.9 fL [facility] NRBC% auto 0.0 % [facility] NRBC Absolute 0.000 0.000 - 0.000 x10(3)/[facility] Blood 09/26/2022 5:50 PM EDT 09/26/2022 6:12 PM EDT Narrative Resulting Agency Comment Spec In Lab Vimal oHlman MD HEMATOLOGY ORDERABLE S Performing Organization Address City/[facility]/ZIP Co de Phone Number [facility] [place] [address] * (ABNORMAL) Basic Metabolic Panel (non-fasting) (09/26/2022 5:50 PM EDT) Glucose 81 65 - 199 mg/dL [facility] Comment:Diabetes: >=200 mg/d L plus symptoms Blood Urea Nitrogen 28(H) 8 - 18 mg/dL [facility] Creatinine 1.02 0.70 - 1.20 mg/dL [facility] Sodium 140 135 - 145 mmol/L [facility] Potassium 4.2 3.5 - 5.0 mmol/L [facility] Comment: Please note: ??Patients with WBC >100,000 may have falsely elevated Potassium levels. ??For accurate Potassium quantification in these patients send serum separator tube (gold top) for subsequent determinations. ??Contact the Clinical Chemistry Laboratory if there are any questions. Chloride 108(H) 98 - 107 mmol/L [facility] Carbon Dioxide 19(L) 22 - 31 mmol/L [facility] Anion Gap 13 5 - 15 mmol/L [facility] Calcium 9.0 8.5 - 10.5 mg/dL [facility] Est Glomerular Filtration Rate 66 >=60 mL/min/1. 73 m?? [facility] Comment: This patient's estimated [...] In Lab Susannah Gómez MD CHEMISTRY ORDERABLES [facility] [place] [address] * Magnesium (09/26/2022 5:50 PM EDT) Magnesium 0.89 0.69 - 1.07 mmol/L [facility] Blood 09/26/2022 5:50 PM EDT 09/26/2022 6:12 PM EDT Narrative Resulting Agency Comment Spec In Lab Susannah Gómez MD CHEMISTRY ORDERABLES Performing Organization Address [facility] Co de Phone Number [facility] [place] [address] * Calcium (09/26/2022 5:50 PM EDT) Calcium 9.0 8.5 - 10.5 mg/dL [facility] Blood 09/26/2022 5:50 PM EDT 09/26/2022 6:12 PM EDT Narrative Resulting Agency Comment Spec In Lab Susannah Gómez MD CHEMISTRY ORDERABLES Performing Organization Address [facility] de Phone Number [facility] [place] [address] * (ABNORMAL) Prothrombin Time (09/26/2022 5:50 PM EDT) Prothrombin Time 14.3(H) 9.4 - 12.5 sec [facility] International Normalization Ratio 1.3 [facility] Comment: An INR <2.0 indicates adequate [...] MD HEMATOLOGY ORDERABLE S Performing Organization Address [facility] Co de Phone Number [facility] [place] [address] * (ABNORMAL) APTT (09/26/2022 5:50 PM EDT) Partial Thromboplastin Time 39(H) 25 - 37 sec [facility] Comment: The PTT is NOT appropriate for heparin monitoring. Use the Anti-Xa level for heparin monitoring (HEP UFH) or LMWH monitoring (HEP LMW). A PTT less than 37 seconds generally indicates adequate hemostasis. Blood 09/26/2022 5:50 PM EDT 09/26/2022 6:12 PM EDT Narrative Resulting Agency Comment Spec In Lab Susannah Gómez MD HEMATOLOGY ORDERABLE S Performing Organization Address City/[facility]/ZIP Co de Phone Number [facility] [place] [address] * (ABNORMAL) pro-Brain Natriuretic Peptide (09/26/2022 5:50 PM EDT) NT-proBNP 1,069(H) <=124 pg/mL [facility] Blood 09/26/2022 5:50 PM EDT 09/26/2022 6:12 PM EDT Narrative Resulting Agency Comment Spec In Lab Susannah Gómez MD CHEMISTRY ORDERABLES Performing Organization Address [facility] Co de Phone Number [facility] [place] [address] * TSH (09/26/2022 5:50 PM EDT) Thyroid Stimulating Hormone 3.02 0.27 - 4.20 mcIU/mL [facility] Comment: Reference Interval (mcIU/mL): Females: ??First Trimester: 0.23-3.88 ??Second Trimester: 0.22-3.90 ??Third Trimester: 0.44-4.66 Blood 09/26/2022 5:50 PM EDT 09/26/2022 6:12 PM EDT Narrative Resulting Agency Comment Spec In Lab Susannah Gómez MD CHEMISTRY ORDERABLES Performing Organization Address City/[facility] Co de Phone Number [facility] [place] [address] * EKG 12 Lead (09/26/2022 5:33 PM EDT) Ventricular rate 54 BPM MUSE SYSTEM Atrial Rate 54 BPM MUSE SYSTEM P-R Interval 180 ms MUSE SYSTEM QRS Duration 84 ms MUSE SYSTEM Q-T Interval 438 ms MUSE SYSTEM QTC Calculated (Bezet) 415 ms MUSE SYSTEM Calculated P [place] 20 degrees MUSE SYSTEM Calculated R [place] 21 degrees MUSE SYSTEM Calculated T [place] -28 degrees MUSE SYSTEM INTERPRETATION Sinus bradycardia ST & T wave abnormality, consider inferior ischemia Abnormal ECG When compared with ECG of 30-JUL-2022 09:33, T wave inversion now evident in Inferior leads Nonspecific T wave abnormality, worse in Anterolateral leads QT has shortened Confirmed by MD Hans, Porsha ([id number]) on 10/02/2022 11:07:34 AM MUSE SYSTEM 09/26/2022 5:33 PM EDT 10/02/2022 11:07 AM EDT Unknown ECG ORDERABLES MUSE SYSTEM * CRP, acute inflammation (09/26/2022 5:01 PM EDT) C-Reactive Protein <3.0 <=4.9 mg/L [facility] Blood Venous Draw / Unknown 09/26/2022 5:01 PM EDT 09/26/2022 5:33 PM EDT Narrative Resulting Agency Comment Spec In Lab Paulo Ramachandran Jr., MD CHEMISTRY LOREN PONCE [facility] [place] [address] * (ABNORMAL) Troponin (09/26/2022 5:01 PM EDT) Troponin-T, High Sensitivity 29(H) <=14 ng/L [facility] Comment: This patient's troponin [...] troponin value can be found in the [facility] Test Catalog Troponin - [facility] Test Catalog Reference: Fourth Sealy Definition of Myocardial Infarction. Journal of the [place] College [employer] 2018;72:2639-9068 Blood 09/26/2022 5:01 PM EDT 09/26/2022 5:12 PM EDT Narrative Resulting Agency Comment Spec In Lab Susannah Gómez MD CHEMISTRY ORDERABLES Performing Organization Address City/State/[facility] Co de Phone Number [facility] [place] [address] documented in this encounter Visit Diagnoses Diagnosis [...] on 09/27/22 at 0900, Until Discontinued, Routine Given 09/28/2022 [...] 0931 (Given - Provider: Antonio Swann, ERWIN) atorvastatin (Lipitor) tablet 80 mg 80 mg, Oral, EVERY EVENING, First dose on 09/26/22 at 1745, Until Discontinued, Routine 1714 (Given - Provider: Mona Ogden RN) 1739 (Given - Provider: Asya Michele RN) 1700 (Due) bumetanide (Bumex) tablet 1 mg 1 mg, Oral, DAILY, First dose on Wed09/28/22 at 1545, Until Discontinued, Routine 1545 (Not Given - Provider: Antonio Swann RN - Reason: See comment - Comment: patient wanted to take after getting home to avoid frequent stops on the way) DULoxetine DR (Cymbalta) capsule 60 mg 60 mg, Oral, DAILY, First dose on 09/26/22 at 1745, Until Discontinued, Routine 1714 (Given - Provider: Mona Ogden RN) 0847 [...] on 09/27/22 at 2230, Until Discontinued, Routine 2151 (Given [...] RN) 0847 (Given - Provider: Asya Michele RN)2099 (Not Given - Provider: Samantha Patino RN - Reason: See comment - Comment: duplicate) 09 (Given - Provider: Antonio Swann RN) sodium chloride 0.9 % (flush) (BD PosiFlush Normal Saline 0.9) flush 5 mL 5 mL, Intravenous, 2 TIMES DAILY, First dose on 09/26/22 at 2100, Until Discontinued, Routine 2002 (Given - Provider: Kathleen Brown RN) 0847 (Given - Provider: Asya Michele RN)2109 (Given - Provider: Samantha Patino RN) 09 (Given - Provider: Antonio Swann RN) topiramate (Topamax) tablet 100 mg 100 mg, Oral, NIGHTLY, First dose on 09/26/22 at 2100, Until Discontinued, DO NOT SPLIT, CRUSH OR OPEN, Routine 2001 (Given - Provider: Kathleen Brown, RN) 2108 (Given - Provider: Samantha Patino, RN) PRN Medication Order 09/26/2022 09/27/2022 09/28/2022 iohexoL [...] Ogden, ERWIN) 1000 (Given - Provider: Asya Michele RN) 0243 (Given - Provider: Samantha Patino, ERWIN)0349 (Given - Provider: Samantha Patino, ERWIN)1359 (Given - Provider: Antonio Swann, ERWIN) sodium chloride 0.9 % (flush) (BD [...] Routine documented in this encounter Care Teams Proofer Black And White Relationship Specialty Start Date End Date Polo Pearce PA [address] [place] [address] PCP - General Internal Medicine 06/09/21 documented as of this encounter
--- OUTSIDE RECORDS SUMMARY | 2023-10-20 19:58 | XMS_ITS | Encounter Summary ---
Author Organization Formerly [facility], [facility] Address [facility] [place] [address] Care Team Providers Care Blast Furnace Supervisor Name Role Phone Polo Pearce Primary Care Provider [phone] Reason for Visit * Reason Comments Congestive Heart Failure HFpEF Encounter Details Date Type Department Care Team (Late st Contact Info) Description 10/08/2022 4:00 PM EDT Office Visit Cardiology at [address] [phone] Jaspreet Kinsey MD [facility] [place] [address] Pulmonary embolism, unspecified chronicity, unspecified pulmonary embolism [...] through Care Everywhere. * Low Sodium Diet (Libyan) * Low Sodium Foods: General Info (Libyan) documented in this encounter Progress Notes * [...] be estimated Intercurrently, patient was admitted to [facility] 09/2022. She presented after developing acute worseningof [...] 30 DAYS fluticasone propionate (FLONASE) 50 mcg/actuation Bantam, Suspension 1 spray, Each Nare, DAILY gabapentin [...] fraction 05/2021: subacute, presented to [facility] with RUQ pain, weight gain, [...] AM EDT Hospital Encounter [place] [address] [place] [address] 10/21/2023 11:30 AM EDT Appointment [place] [address] [place] [address] 10/21/2023 12:30 PM EDT Appointment [place] [address] Mary Reyes [facility] [place] [address] 10/21/2023 1:30 PM EDT Appointment [place] [address] [place] [address] 10/21/2023 2:30 PM EDT Appointment [place] [phone] Mary Reyes APRN [facility] [place] [address] 10/26/2023 4:00 PM EDT Office Visit Cardiology at [address] [phone] Jaspreet Kinsey MD [facility] [place] [address] 10/28/2023 9:00 AM EDT Office Visit [place] [address] 10/29/2023 10:00 AM EDT Clinical Support [place] [address] 10/29/2023 10:15 AM EDT Procedure visit [place] [address] 11/01/2023 5:00 PM EDT Office Visit [place] [phone] Selene Browning, PhD [facility] [place] [address] 11/22/2023 4:40 PM EDT Office Visit Cardiology at [address] [phone] Porsha Mcdaniels MD [facility] [place] [address] 12/13/2023 10:00 AM EDT Clinical Support [place] [phone] [facility] [place] [address] documented as of this encounter Visit Diagnoses Diagnosis Pulmonary embolism, unspecified chronicity, unspecified pulmonary embolism type, unspecified whether acute cor pulmonale present Heart failure with preserved ejection fraction, unspecified HF chronicity Chronic heart failure with preserved ejection fraction documented in this encounter Care Teams Blast Furnace Supervisor Relationship Specialty Start Date End Date Polo Pearce PA [address] [place] [address] PCP - General Internal Medicine 06/09/21 documented as of this encounter
--- OUTSIDE RECORDS SUMMARY | 2023-10-20 19:58 | XMS_ITS | Encounter Summary ---
Author Organization [facility] [place] [address] Care Team Providers Care Dev Manager Name Role Phone Polo Pearce Primary Care Provider [phone] Encounter Details Date Type Department Care Team (Late st Contact Info) Description 02/08/2023 External [place] [phone] Social History Tobacco Use Types Packs/Day Years [...] AM EDT Hospital Encounter [place] [address] [place] [address] 10/21/2023 11:30 AM EDT Appointment [place] [address] [place] [address] 10/21/2023 12:30 PM EDT Appointment [place] [address] Mary Reyes [facility] [place] [address] 10/21/2023 1:30 PM EDT Appointment [place] [address] Mary Reyes [facility] [place] [address] 10/21/2023 2:30 PM EDT Appointment [place] [phone] Mary Reyes APRN [facility] [place] [address] 10/26/2023 4:00 PM EDT Office Visit Cardiology at [address] [phone] Jaspreet Kinsey MD [facility] [place] [address] 10/28/2023 9:00 AM EDT Office Visit [place] [address] 10/29/2023 10:00 AM EDT Clinical Support [place] [address] 10/29/2023 10:15 AM EDT Procedure visit [place] [address] 11/01/2023 5:00 PM EDT Office Visit Gastroenterology at [place] [phone] Selene Browning, PhD [facility] [place] [address] 11/22/2023 4:40 PM EDT Office Visit Cardiology at [address] [phone] Porsha Mcdaniels MD [facility] [place] [address] 12/13/2023 10:00 AM EDT Clinical Support [place] [phone] [facility] [place] [address] documented as of this encounter Procedures Procedure Name Priority Date/Time Associated Diagnosis Comments ECG SCAN Routine 02/08/2023 3:27 PM EST documented in this encounter Results * Scan Doc: ECG (02/08/2023 3:27 PM EST) Historical Provider MEDIA MGR SCAN EX T ORDR/RSLT documented in this encounter Visit Diagnoses Not on filedocumented in this encounter Care Teams Dev Manager Relationship Specialty Start Date End Date Polo Pearce PA [address] [place] [address] PCP - General Internal Medicine 06/09/21 documented as of this encounter
--- OUTSIDE RECORDS SUMMARY | 2023-10-20 19:59 | XMS_ITS | Encounter Summary ---
[place] [address] Care Team Providers Care Tactical/Mobile Watch Officer Name Role Phone Polo Pearce Primary Care Provider [phone] Reason for Visit * Reason Comments Medication Refill Encounter Details Date Type Department Care Team (Late st Contact Info) Description 07/24/2022 Refill Cardiology at [address] [phone] Deja Zaidi PA [facility] [place] [address] Medication Refill Social History Tobacco Use Types [...] AM EDT Hospital Encounter [place] [address] Mary Reyes APRN [facility] [place] [address] 10/21/2023 11:30 AM EDT Appointment [place] [address] [place] [address] 10/21/2023 12:30 PM EDT Appointment [place] [address] [place] [address] 10/21/2023 1:30 PM EDT Appointment [place] [address] [place] [address] 10/21/2023 2:30 PM EDT Appointment [place] [address] [place] [address] 10/26/2023 4:00 PM EDT Office Visit Cardiology at [address] [phone] Jaspreet Kinsey MD [facility] [place] [address] 10/28/2023 9:00 AM EDT Office [place] [address] 10/29/2023 10:00 AM EDT Clinical [place] [address] 10/29/2023 10:15 AM EDT Procedure [place] [address] 11/01/2023 5:00 PM EDT Office Visit Gastroenterology at [place] [phone] Selene Browning, PhD [facility] [address] 11/22/2023 4:40 PM EDT Office Visit Cardiology at [address] [phone] Porsha Mcdaniels MD [facility] [place] [address] 12/13/2023 10:00 AM EDT Clinical [place] [phone] Lucero Romero, RD [facility] [place] [address] documented as of this encounter Visit Diagnoses Diagnosis Chronic heart failure with preserved ejection fraction documented in this encounter Care Teams Tactical/Mobile Watch Officer Relationship Specialty Start Date End Date Polo Pearce PA [address] [place] [address] PCP - General Internal Medicine 06/09/21 documented as of this encounter
--- OUTSIDE RECORDS SUMMARY | 2023-10-20 19:59 | XMS_ITS | Encounter Summary ---
Author Organization [facility] Address [facility] [place] [address] Care Team Providers Care Asphalt Spreader Name Role Phone Polo Pearce Primary Care Provider [phone] Encounter Details Date Type Department Care Team (Late st Contact Info) Description 09/17/2021 Telephone Cardiology at [address] [place] [address] Jaspreet Kinsey MD [facility] [place] [address] Social History Tobacco Use Types Packs/Day Years [...] Please call on her work phone @ [phone]. Or you may leave a message on her cell phone @ [phone] documented in this encounter Plan of Treatment Upcoming Encounters Date Type Department Care Team (Late st Contact Info) Description 10/21/2023 10:30 AM EDT Hospital En[place] [address] Mary Reyes [facility] [place] [address] 10/21/2023 11:30 AM EDT App[place] [address] Mary Reyes [facility] [place] [address] 10/21/2023 12:30 PM EDT Appoint[place] [address] Mary Reyes [facility] [place] [address] 10/21/2023 1:30 PM EDT Appoint[place] [address] Mary Reyes [facility] [place] [address] 10/21/2023 2:30 PM EDT Appointment [place] [address] Mary Reyes [facility] [place] [address] 10/26/2023 4:00 PM EDT Office Visit Cardiology at [address] [phone] Jaspreet Kinsey MD [facility] [place] [address] 10/28/2023 9:00 AM EDT Office [place] [address] 10/29/2023 10:00 AM EDT Clinical Support [place] [address] 10/29/2023 10:15 AM EDT Procedure [place] [address] 11/01/2023 5:00 PM EDT Office Visit Gastroenterology at [place] [phone] Selene Browning, PhD [facility] [place] [address] 11/22/2023 4:40 PM EDT Office Visit Cardiology at [address] [address] Porsha Mcdaniels MD [facility] [place] [address] 12/13/2023 10:00 AM EDT Clinical Support [place] [address] Lucero Romero, RD [facility] [place] [address] documented as of this encounter Visit Diagnoses Not on filedocumented in this encounter Care Teams Asphalt Spreader Relationship Specialty Start Date End Date Polo Pearce PA S[address] [place] [address] PCP - General Internal Medicine 06/09/21 documented as of this encounter
--- OUTSIDE RECORDS SUMMARY | 2023-10-20 19:59 | XMS_ITS | Encounter Summary ---
[place] [address] Care Team Providers Care Pharmacy Buyer Name Role Phone Polo Pearce Primary Care Provider [phone] Encounter Details Date Type Department Care Team (Late st Contact Info) Description 07/29/2022 9:50 PM EDT Ancillary Procedure [place] [phone] Marcia Kamara MD [facility] [place] [address] Social History Tobacco Use Types Packs/Day Years [...] AM EDT Hospital Encounter [place] [address] Mary Reyes APRN [facility] [place] [address] 10/21/2023 11:30 AM EDT Appointment [place] [address] Mary Reyes [facility] [address] 10/21/2023 12:30 PM EDT Appointment [place] [address] Mary Reyes [facility] [address] 10/21/2023 1:30 PM EDT Appointment [place] [address] [place] [address] 10/21/2023 2:30 PM EDT Appointment [place] [address] [place] [address] 10/26/2023 4:00 PM EDT Office Visit Cardiology at [address] [phone] Jaspreet Kinsey MD [facility] [place] [address] 10/28/2023 9:00 AM EDT Office [place] [address] 10/29/2023 10:00 AM EDT Clinical [place] [address] 10/29/2023 10:15 AM EDT Procedure [place] [address] 11/01/2023 5:00 PM EDT Office [place] [address] Selene Browning, PhD [facility] [place] [address] 11/22/2023 4:40 PM EDT Office Visit Cardiology at [address] [address] Porsha Mcdaniels MD [facility] CARDIOLOGY [place], [place] [address] 12/13/2023 10:00 AM EDT Clinical [place] [address] Lucero Romero, RD [facility] [place] [address] documented as of this encounter Procedures Procedure Name Priority Date/Time Associated Diagnosis Comments FILM LIBRARY STORAGE ONLY CT HEAD AND SPINE Routine 07/29/2022 9:45 PM EDT documented in this encounter Results * Film Library- Storage Only CT Head And Spine (07/29/2022 9:45 PM EDT) Narrative [facility] - 07/29/2022 9:45 PM EDT This exam is auto-finalizing. It's purpose is for storage only. Marcia Kamara MD IMG FILM LIBRARY ORD ERABLES [place], [place] documented in this encounter Visit Diagnoses Not on filedocumented in this encounter Care Teams Pharmacy Buyer Relationship Specialty Start Date End Date Polo Pearce PA [address] [place] [address] PCP - General Internal Medicine 06/09/21 documented as of this encounter
--- OUTSIDE RECORDS SUMMARY | 2023-10-20 19:59 | XMS_ITS | Encounter Summary ---
[place] [address] Care Team Providers Care Fence Supervisor Name Role Phone Polo Pearce Primary Care Provider [phone] Reason for Visit * Reason Onset Date Comments Follow-up 03/18/2022 Encounter Details Date Type Department Care Team (Late st Contact Info) Description 03/18/2022 Telephone Cardiology at [address] [phone] Mary Motta, RN Follow-up Social History Tobacco [...] Dr. Tovar Pt saw Dr. Kinsey (primary nurse plastics on 03/16) where pt was known to [...] AM EDT Hospital En[place] [address] [place] [address] 10/21/2023 11:30 AM EDT Appoint[place] [address] [place] [address] 10/21/2023 12:30 PM EDT Appoint[place] [address] [place] [address] 10/21/2023 1:30 PM EDT Appoint[place] [address] Mary Reyes [facility] [place] [address] 10/21/2023 2:30 PM EDT Appoint[place] [address] Mary Reyes [facility] [place] [address] 10/26/2023 4:00 PM EDT Office Visit Cardiology at [address] [place] [address] Jaspreet Kinsey MD [facility] [place] [address] 10/28/2023 9:00 AM EDT Office Visit [place] [address] 10/29/2023 10:00 AM EDT Clinical Support [place] [address] 10/29/2023 10:15 AM EDT Procedure visit [place] [address] 11/01/2023 5:00 PM EDT Office Visit [place] [address] Selene Browning, PhD [facility] [place] [address] 11/22/2023 4:40 PM EDT Office Visit Cardiology at [address] [phone] Porsha Mcdaniels MD [facility] [place] [address] 12/13/2023 10:00 AM EDT Clinical Support [place] [address]-[address] [facility] [place] [address] documented as of this encounter Visit Diagnoses Not on filedocumented in this encounter Care Teams Fence Supervisor Relationship Specialty Start Date End Date Polo Pearce PA Sb ARELL[address]O [address] [place] [address] PCP - General Internal Medicine 06/09/21 documented as of this encounter
--- OUTSIDE RECORDS SUMMARY | 2023-10-20 19:59 | XMS_ITS | Encounter Summary ---
Author Organization [facility] [place] [address] Care Team Providers Care Utility Lineman Name Role Phone Polo Pearce Primary Care Provider [phone] Encounter Details Date Type Department Care Team (Late st Contact Info) Description 12/30/2021 Telephone Cardiology at [address] [address] [facility] [place] [address] Social History Tobacco Use Types Packs/Day Years [...] 51 year old female with mild PAH ([facility] 06/2021) without e/o parenchymal lung disease or L-sided dysfunction, ? Prior SD, C2 obesity, spastic lung disease and MARYLOU/HS [...] mild restriction, normal diffusion; no volumes done [facility] 2019 clean coronaries [facility] 06/2021 Hemodynamics: [...] AM EDT Hospital Encounter [place] [address] Mary Reyes [facility] [place] [address] 10/21/2023 11:30 AM EDT Appointment [place] [address] Mary Reyes [facility] [place] [address] 10/21/2023 12:30 PM EDT Appointment [place] [address] Mary Reyes DATA SCIENCE AND IOT MANAGER [facility] [place] [address] 10/21/2023 1:30 PM EDT Appointment [place] [address] Mary Reyes [facility] [place] [address] 10/21/2023 2:30 PM EDT Appointment [place] [address] [facility] [place] [address] 10/26/2023 4:00 PM EDT Office Visit Cardiology at [address] [phone] [facility] [place] [address] 10/28/2023 9:00 AM EDT Office [place] [address] 10/29/2023 10:00 AM EDT Clinical [place] [address] 10/29/2023 10:15 AM EDT Procedure [place] [address] 11/01/2023 5:00 PM EDT Office Visit Gastroenterology at [place] [phone] Selene Browning, PhD [facility] [place] [address] 11/22/2023 4:40 PM EDT Office Visit Cardiology at [address] [address] [facility] [place] [address] 12/13/2023 10:00 AM EDT Clinical Support [place] [address] [facility] [place] [place] [address] documented as of this encounter Visit Diagnoses Not on filedocumented in this encounter Care Teams Utility Lineman Relationship Specialty Start Date End Date Polo Pearce PA [address] [place] [address] PCP - General Internal Medicine 06/09/21 documented as of this encounter
--- OUTSIDE RECORDS SUMMARY | 2023-10-20 19:59 | XMS_ITS | Encounter Summary ---
Author Organization [facility] Address [facility] [place] [address] Care Team Providers Care Dealer Analyst Name Role Phone Polo Pearce Primary Care Provider [phone] Reason for Visit * Reason Onset Date Comments Chest Pain 03/11/2022 Encounter Details Date Type Department Care Team (Late st Contact Info) Description 03/11/2022 Telephone Cardiology at [address] [address] Jaspreet Kinsey MD [facility] [place] [address] Chest Pain Social History Tobacco Use Types [...] UTI, URI symptoms Requesting discharge summary(s) from [facility] from this week. Plan: to determine the indication and goals for this follow up cardiology appointment. From consultation by [facility] with Vianey Mike on 03/10/2021: [...] and blood in urine. Her number is [phone] should you have any questions. I looked in the chart and looks like we still need those records documented in this encounter Plan of Treatment Upcoming Encounters Date Type Department Care Team (Late st Contact Info) Description 10/21/2023 10:30 AM EDT Hospital Encounter [place] [address] Mary Reyes APRN [facility] [place] [address] 10/21/2023 11:30 AM EDT Appointment [place] [address] Mary Reyes TACTICAL AIR CONTROL PARTY MANAGER [facility] [place] [address] 10/21/2023 12:30 PM EDT Appointment Nuclear Medicine at [place] [address] Mary Reyes TACTICAL AIR CONTROL PARTY MANAGER [facility] [place] [address] 10/21/2023 1:30 PM EDT Appointment [place] [address] Mary Reyes APRN [facility] [place] [address] 10/21/2023 2:30 PM EDT Appointment [place] [address] [place] [address] 10/26/2023 4:00 PM EDT Office Visit Cardiology at [address] [address] Jaspreet Kinsey MD [facility] [place] [address] 10/28/2023 9:00 AM EDT Office Visit [place] [address] 10/29/2023 10:00 AM EDT Clinical [place] [address] 10/29/2023 10:15 AM EDT Procedure [place] [address] 11/01/2023 5:00 PM EDT Office [place] [address] Selene Browning, PhD [facility] [place] [address] 11/22/2023 4:40 PM EDT Office Visit Cardiology at [address] [phone] Porsha Mcdaniels MD [facility] [place] [address] 12/13/2023 10:00 AM EDT Clinical [place] [address] [facility] [place] [address] documented as of this encounter Visit Diagnoses Not on filedocumented in this encounter Care Teams Dealer Analyst Relationship Specialty Start Date End Date Polo Pearce PA [address] [facility] 1 [place] [address] PCP - General Internal Medicine 06/09/21 documented as of this encounter
--- OUTSIDE RECORDS SUMMARY | 2023-10-20 19:59 | XMS_ITS | Encounter Summary ---
Author Organization Pending [facility] Address [facility] [place] [address] Care Team Providers Care Manager Home Improvement Name Role Phone Polo Pearce Primary Care Provider [phone] Encounter Details Date Type Department Care Team (Late st Contact Info) Description 06/24/2022 Telephone Cardiology at [address] [place] [address] Jaspreet Kinsey MD [facility] [address] Social History Tobacco Use Types Packs/Day Years [...] Aide Glass - 06/30/2022 11:[address] [facility] is faxing over her ER visits [...] Best # to reach her is work [phone] documented in this encounter Plan of Treatment Upcoming Encounters Date Type Department Care Team (Late st Contact Info) Description 10/21/2023 10:30 AM EDT Hospital En[place] [address] [place] [address] 10/21/2023 11:30 AM EDT Appointment [place] [address] [place] [address] 10/21/2023 12:30 PM EDT Appointment [place] [address] Mary Reyes APRN [facility] [place] [place] [address] 10/21/2023 1:30 PM EDT Appointment [place] [address] Mary Reyes [facility] [place] [address] 10/21/2023 2:30 PM EDT Appointment [place] [address] [place] [address] 10/26/2023 4:00 PM EDT Office Visit Cardiology at [address] [phone] Jaspreet Kinsey MD [facility] [place] [address] 10/28/2023 9:00 AM EDT Office [place] [address] 10/29/2023 10:00 AM EDT Clinical [place] [address] 10/29/2023 10:15 AM EDT Procedure [place] [address] 11/01/2023 5:00 PM EDT Office Visit [place] [address] Selene Browning, PhD [facility] [place] [address] 11/22/2023 4:40 PM EDT Office Visit Cardiology at [address] [address] Porsha Mcdaniels MD [facility] [place] [address] 12/13/2023 10:00 AM EDT Clinical Support [place] [address] [facility] [place] [address] documented as of this encounter Visit Diagnoses Not on filedocumented in this encounter Care Teams Manager Home Improvement Relationship Specialty Start Date End Date Polo Pearce PA [address] [place] [address] PCP - General Internal Medicine 06/09/21 documented as of this encounter
--- OUTSIDE RECORDS SUMMARY | 2023-10-20 19:59 | XMS_ITS | Encounter Summary ---
Author Organization [facility] Address [facility] [place] [address] Care Team Providers Care Tool Crib Attendant Name Role Phone Polo Pearce Primary Care Provider [phone] Reason for Visit * Reason Onset Date Comments Ascites 07/28/2022 Chest Pain 07/28/2022 Encounter Details Date Type Department Care Team (Late st Contact Info) Description 07/28/2022 Telephone Cardiology at [address] [address] Jaspreet Kinsey MD [facility] [place] [place] [address] Ascites; Chest Pain Social History Tobacco Use [...] 10:10 AM EDT Indira is inpatient at [facility] today. Nurse [place] indicates she is alert [...] Creat 1.3 Plan: will remain inpatient at [facility] Outpatient CT heart planned on July 30 - cancel and reschedule (notified [facility] card lab [place]) documented in this encounter Plan of Treatment Upcoming Encounters Date Type Department Care Team (Late st Contact Info) Description 10/21/2023 10:30 AM EDT Hospital Encounter [place] [address] [place] [address] 10/21/2023 11:30 AM EDT Appointment [place] [address] [place] [address] 10/21/2023 12:30 PM EDT Appointment [place] [address] [place] [address] 10/21/2023 1:30 PM EDT Appointment [place] [address] [place] [address] 10/21/2023 2:30 PM EDT Appointment [place] [address] Mary Reyes APRN [facility] [place] [address] 10/26/2023 4:00 PM EDT Office Visit Cardiology at [address] [address] Jaspreet Kinsey MD [facility] [place] [address] 10/28/2023 9:00 AM EDT Office [place] [address] 10/29/2023 10:00 AM EDT Clinical [place] [address] 10/29/2023 10:15 AM EDT Procedure [place] [address] 11/01/2023 5:00 PM EDT Office [place] [address] Selene Browning, PhD [facility] [place] [address] 11/22/2023 4:40 PM EDT Office Visit Cardiology at [address] [phone] Porsha Mcdaniels MD [facility] [place] [address] 12/13/2023 10:00 AM EDT Clinical [place] [address] [facility] [place] [address] documented as of this encounter Visit Diagnoses Not on filedocumented in this encounter Care Teams Tool Crib Attendant Relationship Specialty Start Date End Date Polo Pearce PA [address] [place] [address] PCP - General Internal Medicine 06/09/21 documented as of this encounter
--- OUTSIDE RECORDS SUMMARY | 2023-10-20 19:59 | XMS_ITS | Encounter Summary ---
[place] [address] Care Team Providers Care Bottling Supervisor Name Role Phone Polo Pearce Primary Care Provider [phone] Encounter Details Date Type Department Care Team (Late st Contact Info) Description 03/11/2022 Telephone Cardiology at [address] [phone] Mary Motta, RN Social History Tobacco Use [...] ESTSummary: Pre Procedure Call: SVT Ablation EP TIME MOTION ANALYST COORDINATION CHECKLIST Patient Name: Indira Roque Patient Performing Cylinder Machine Operator Pulp Drier: Jed Tovar Referring Provider: Sobeida Jimenez Date of Procedure: 03/23/22 Arrival Time/ Case Time: 6:00 am / 7:30 am Check In Location: Turbine Room Attendant Desk 4W Date Patient was Called: 03/11/22 [...] overnight , understands that they will need box truck driver on day of discharge Notified pt that Esqueda catheter may be placed on day of procedure depending on type & duration of case. Special Notes/Considerations: Given fequent ED visits to [facility] within the past 4 days, will contact pt next week (03/18) to see howsymptoms are progressing. If still having pain, issues will need to reschedule procedure per Dr. Tovar documented in this encounter Plan of Treatment Upcoming Encounters Date Type Department Care Team (Late st Contact Info) Description 10/21/2023 10:30 AM EDT Hospital Encounter [place] [address] Mary Reyes [facility] [address] 10/21/2023 11:30 AM EDT Appointment [place] [address] Mary Reyes [place] [address] 10/21/2023 12:30 PM EDT Appointment [place] [address] Mary Reyes, [place] [address] 10/21/2023 1:30 PM EDT Appointment [place] [address] [place] [address] 10/21/2023 2:30 PM EDT Appointment [place] [address] [place] [address] 10/26/2023 4:00 PM EDT Office Visit Cardiology at [address] [phone] Jaspreet Kinsey MD [facility] [place] [address] 10/28/2023 9:00 AM EDT Office [place] [address] 10/29/2023 10:00 AM EDT Clinical [place] [address] 10/29/2023 10:15 AM EDT Procedure [place] [address] 11/01/2023 5:00 PM EDT Office Visit [place] [address] Selene Browning, PhD [facility] [place] [address] 11/22/2023 4:40 PM EDT Office Visit Cardiology at [address] [address] Porsha Mcdaniels MD [facility] [place] [address] 12/13/2023 10:00 AM EDT Clinical Support [place] [address] [facility] [place] [place] [address] documented as of this encounter Visit Diagnoses Not on filedocumented in this encounter Care Teams Bottling Supervisor Relationship Specialty Start Date End Date Polo Pearce PA Sb MOTT [address] [place] [address] PCP - General Internal Medicine 06/09/21 documented as of this encounter
--- OUTSIDE RECORDS SUMMARY | 2023-10-20 19:59 | XMS_ITS | Encounter Summary ---
Author Organization [facility] Address [facility] [place] [address] Care Team Providers Care Church Supervisor Name Role Phone Polo Pearce Primary Care Provider [phone] Encounter Details Date Type Department Care Team (Late st Contact Info) Description 07/28/2022 Telephone Cardiology at [address] [place] [address] Jaspreet Kinsey MD [facility] [place] [address] Social History Tobacco Use Types Packs/Day Years [...] and would like a call back @ [phone] * Telephone Encounter - Nilda Mayes, RN - 07/28/2022 10:57 AM EDT Indira says she is being discharged to home from [facility] today. Home diuretic therapy isn't working well. When I'm in the hospital, it really comes down again. She asks if the fluid pill needs to be changed. Plan: to request discharge records from [facility] when available. * Telephone Encounter - Brenda Callahan - 07/28/2022 10:44 AM EDT PT called she was advised to call this office. She has a few questions. Prior notes in chart she has been at [facility]. She would like a call back from a nurse please. [phone] documented in this encounter Plan of Treatment Upcoming Encounters Date Type Department Care Team (Late st Contact Info) Description 10/21/2023 10:30 AM EDT Hospital En[place] [address] Mary Reyes ENGINEERING AND [place] [address] 10/21/2023 11:30 AM EDT Appointment [place] [address] Mary Reyes APRN [facility] [address] 10/21/2023 12:30 PM EDT Appointment [place] [address] [place] [address] 10/21/2023 1:30 PM EDT Appoint[place] [address] [place] [address] 10/21/2023 2:30 PM EDT Appointment [place] [address] Mary Reyes, [place] [address] 10/26/2023 4:00 PM EDT Office Visit Cardiology at [address] [address] Jaspreet Kinsey MD [facility] [address] 10/28/2023 9:00 AM EDT Office [place] [address] 10/29/2023 10:00 AM EDT Clinical [place] [address] 10/29/2023 10:15 AM EDT Procedure [place] [address] 11/01/2023 5:00 PM EDT Office [place] [address] Selene Browning, PhD [facility] [place] [address] 11/22/2023 4:40 PM EDT Office Visit Cardiology at [address] [address] Porsha Mcdaniels MD [facility] [address] 12/13/2023 10:00 AM EDT Clinical [place] [phone] [facility] [place] [address] documented as of this encounter Visit Diagnoses Not on filedocumented in this encounter Care Teams Church Supervisor Relationship Specialty Start Date End Date Polo Pearce PA [address] [place] [address] PCP - General Internal Medicine 06/09/21 documented as of this encounter
--- OUTSIDE RECORDS SUMMARY | 2023-10-20 19:59 | XMS_ITS | Encounter Summary ---
Author Organization [facility] Address [facility] [place] [address] Care Team Providers Care Arc Welder Apprentice Name Role Phone Polo Pearce Primary Care Provider [phone] Reason for Visit * Reason Comments Congestive Heart Failure HFpEF Palpitations SVT/AVNRT * Consultation (Routine) - Closed Specialty Diagnoses / Procedures Referred By Contac t Referred To Contact Cardiology Diagnoses HFp EF Procedures NEW PATIENT Mario Hallman MD [facility] [place] [address] Jaspreet Kinsey MD [facility] [place] [address] Referral ID Status Reason Start Date Expiration Date Visits Re quested Visits Authorized [id number] Closed 07/23/2021 07/23/2022 1 1 Encounter Details Date Type Department Care Team (Late st Contact Info) Description 07/23/2021 8:20 AM EDT Office Visit Cardiology at [address] [phone] Jaspreet Kinsey MD [facility] [place] [address] Heart failure with preserved ejection fraction, unspecified [...] on toprol ??? Obesity ??? Dyslipidemia ??? MARLYOU on CPAP ??? Restless leg syndrome ??? [...] needed. ??? fluticasone propionate (FLONASE) 50 mcg/actuation [place], Suspension 1 spray by Each Nare route [...] for hfpef and svt She presented to [facility] end of May with subacute RUQ [...] AM EDT Hospital Encounter [place] [address] [place] [address] 10/21/2023 11:30 AM EDT Appointment [place] [address] [place] [address] 10/21/2023 12:30 PM EDT Appointment [place] [address] [place] [address] 10/21/2023 1:30 PM EDT Appointment [place] [address] [facility] [address] 10/21/2023 2:30 PM EDT Appointment Nuclear Medicine at [place] [phone] [place] [address] 10/26/2023 4:00 PM EDT Office Visit Cardiology at [address] [address] Jaspreet Kinsey MD [facility] [place] [address] 10/28/2023 9:00 AM EDT Office [place] [address] 10/29/2023 10:00 AM EDT Clinical [place] [address] 10/29/2023 10:15 AM EDT Procedure [place] [address] 11/01/2023 5:00 PM EDT Office Visit Gastroenterology at [place] [phone] Selene Browning, PhD [facility] [place] [address] 11/22/2023 4:40 PM EDT Office Visit Cardiology at [place] [phone] Porsha Mcdaniels MD [facility] [place] [address] 12/13/2023 10:00 AM EDT Clinical Support [place] [address] Lucero Romero, [place] [facility] [place] [address] documented as of this encounter Visit Diagnoses Diagnosis Heart failure with preserved ejection fraction, unspecified HF chronicity SVT (supraventricular tachycardia) Other specified cardiac dysrhythmias documented in this encounter Care Teams Arc Welder Apprentice Relationship Specialty Start Date End Date Polo Pearce PA [address] [facility] 1 [place] [address] PCP - General Internal Medicine 06/09/21 documented as of this encounter
--- OUTSIDE RECORDS SUMMARY | 2023-10-20 19:59 | XMS_ITS | Encounter Summary ---
Author Organization [facility] Address [facility] [place] [address] Care Team Providers Care Piece Cutter Name Role Phone Polo Pearce Primary Care Provider [phone] Encounter Details Date Type Department Care Team (Late st Contact Info) Description 03/17/2022 Telephone Cardiology at [address] [place] [address] Jaspreet Kinsey MD [facility] [place] [address] Social History Tobacco Use Types Packs/Day Years [...] the new one. Please call her @ [phone]. documented in this encounter Plan of Treatment Upcoming Encounters Date Type Department Care Team (Late st Contact Info) Description 10/21/2023 10:30 AM EDT Hospital Encounter [place] [address] [place] [address] 10/21/2023 11:30 AM EDT Appointment [place] [address] [place] [address] 10/21/2023 12:30 PM EDT Appointment [place] [address] [place] [address] 10/21/2023 1:30 PM EDT Appointment [place] [address] [place] [address] 10/21/2023 2:30 PM EDT Appointment [place] [address] Mary Reyes [facility] [place] [address] 10/26/2023 4:00 PM EDT Office Visit Cardiology at [address] [address] Jaspreet Kinsey MD [facility] [address] 10/28/2023 9:00 AM EDT Office Visit Gastroenterology [place] [address] 10/29/2023 10:00 AM EDT Clinical Support Gastro[place] [address] 10/29/2023 10:15 AM EDT Procedure visit Gastroenterology [place] [address] 11/01/2023 5:00 PM EDT Office [place] [address] Selene Browning, PhD [facility] [place] [address] 11/22/2023 4:40 PM EDT Office Visit Cardiology at [address] [phone] Porsha Mcdaniels MD [facility] [place] [address] 12/13/2023 10:00 AM EDT Clinical [place] [address] Lucero Romero, RD [facility] [place] [address] documented as of this encounter Visit Diagnoses Not on filedocumented in this encounter Care Teams Piece Cutter Relationship Specialty Start Date End Date Polo Pearce PA [address] [place] [address] PCP - General Internal Medicine 06/09/21 documented as of this encounter
--- OUTSIDE RECORDS SUMMARY | 2023-10-20 19:59 | XMS_ITS | Encounter Summary ---
Author Organization [facility] Address [facility] [place] [address] Care Team Providers Care Stock Shaper Name Role Phone Polo Pearce Primary Care Provider [phone] Encounter Details Date Type Department Care Team (Late st Contact Info) Description 07/07/2022 Telephone Cardiology at [address] [place] [address] Jaspreet Kinsey MD [facility] [place] [address] Social History Tobacco Use Types Packs/Day Years [...] AM EDT Hospital Encounter [place] [phone] [place] [address] 10/21/2023 11:30 AM EDT Appointment [place] [address] [place] [address] 10/21/2023 12:30 PM EDT Appointment [place] [address] Mary Reyes [place] [address] 10/21/2023 1:30 PM EDT Appointment [place] [address] [place] [address] 10/21/2023 2:30 PM EDT Appointment [place] [address] Mary Reyes [place] [address] 10/26/2023 4:00 PM EDT Office Visit Cardiology at [address] [phone] Jaspreet Kinsey MD [facility] [place] [address] 10/28/2023 9:00 AM EDT Office Visit Gastro[place] [address] 10/29/2023 10:00 AM EDT Clinical Support [place] [address] 10/29/2023 10:15 AM EDT Procedure visit [place] [address] 11/01/2023 5:00 PM EDT Office [place] [address] Selene Browning, PhD [facility] [place] [address] 11/22/2023 4:40 PM EDT Office Visit Cardiology at [address] [phone] Porsha Mcdaniels MD [facility] [place] [address] 12/13/2023 10:00 AM EDT Clinical Support [place] [address] Lucero Romero, [place] [facility] [place] [address] documented as of this encounter Visit Diagnoses Not on filedocumented in this encounter Care Teams Stock Shaper Relationship Specialty Start Date End Date Polo Pearce PA [address] [place] [address] PCP - General Internal Medicine 06/09/21 documented as of this encounter
--- OUTSIDE RECORDS SUMMARY | 2023-10-20 19:59 | XMS_ITS | Encounter Summary ---
[place] [address] Care Team Providers Care China And Silverware Salesperson Name Role Phone Polo Pearce Primary Care Provider [phone] Encounter Details Date Type Department Care Team (Late st Contact Info) Description 07/29/2022 9:45 PM EDT Ancillary Procedure [place] [phone] Marcia Kamara MD [facility] [place] [address] Social History Tobacco Use Types Packs/Day Years [...] AM EDT Hospital Encounter [place] [address] Mary Reyes APRN [facility] [place] [address] 10/21/2023 11:30 AM EDT Appointment [place] [address] Mary Reyes [facility] [place] [address] 10/21/2023 12:30 PM EDT Appointment [place] [address] Mary Reyes [facility] [place] [address] 10/21/2023 1:30 PM EDT Appointment [place] [address] [place] [address] 10/21/2023 2:30 PM EDT Appointment [place] [address] [place] [address] 10/26/2023 4:00 PM EDT Office Visit Cardiology at [address] [phone] Jaspreet Kinsey MD [facility] [place] [address] 10/28/2023 9:00 AM EDT Office [place] [address] 10/29/2023 10:00 AM EDT Clinical [place] [address] 10/29/2023 10:15 AM EDT Procedure [place] [address] 11/01/2023 5:00 PM EDT Office [place] [address] Selene Browning, PhD [facility] [place] [address] 11/22/2023 4:40 PM EDT Office Visit Cardiology at [address] [address] Porsha Mcdaniels MD [facility] CARDIOLOGY [place], [place] [address] 12/13/2023 10:00 AM EDT Clinical [place] [address] Lucero Romero, RD [facility] [place] [address] documented as of this encounter Procedures Procedure Name Priority Date/Time Associated Diagnosis Comments FILM LIBRARY STORAGE ONLY CT CHEST Routine 07/29/2022 9:43 PM EDT documented in this encounter Results * Film Library- Storage Only CT Chest (07/29/2022 9:43 PM EDT) Narrative [facility] - 07/29/2022 9:43 PM EDT This exam is auto-finalizing. It's purpose is for storage only. Marcia Kamara MD IMG FILM LIBRARY ORD ERABLES [place], [place] documented in this encounter Visit Diagnoses Not on filedocumented in this encounter Care Teams China And Silverware Salesperson Relationship Specialty Start Date End Date Polo Pearce PA [address] [place] [address] PCP - General Internal Medicine 06/09/21 documented as of this encounter
--- OUTSIDE RECORDS SUMMARY | 2023-10-20 19:59 | XMS_ITS | Encounter Summary ---
Author Organization [facility] Address [facility] [place] [address] Care Team Providers Care Combat Systems Operator Mine Warfare Name Role Phone Polo Pearce Primary Care Provider [phone] Encounter Details Date Type Department Care Team (Late st Contact Info) Description 09/16/2021 Telephone Cardiology at [address] [place] [address] Jaspreet Kinsey MD [facility] [place] [address] Social History Tobacco Use Types Packs/Day Years [...] for calling her back during the day: [phone]. Or you may leave a message on her cell phone: [phone]. documented in this encounter Plan of Treatment Upcoming Encounters Date Type Department Care Team (Late st Contact Info) Description 10/21/2023 10:30 AM EDT Hospital Encounter [place] [address] Mary Reyes [facility] [place] [address] 10/21/2023 11:30 AM EDT Appointment [place] [address] [place] [address] 10/21/2023 12:30 PM EDT Appointment [place] [address] Mary Reyes [facility] [address] 10/21/2023 1:30 PM EDT Appointment [place] [address] Mary Reyes [facility] [place] [place] [address] 10/21/2023 2:30 PM EDT Appointment Nuclear Medicine at [place] [phone] Mary Reyes APRN [facility] [place] [address] 10/26/2023 4:00 PM EDT Office Visit Cardiology at [address] [phone] Jaspreet Kinsey MD [facility] [place] [address] 10/28/2023 9:00 AM EDT Office [place] [address] 10/29/2023 10:00 AM EDT Clinical [place] [address] 10/29/2023 10:15 AM EDT Procedure [place] [address] 11/01/2023 5:00 PM EDT Office Visit Gastroenterology at [place] [phone] Selene Browning, PhD [facility] [place] [address] 11/22/2023 4:40 PM EDT Office Visit Cardiology at [place] [phone] Porsha Mcdaniels MD [facility] [place] [address] 12/13/2023 10:00 AM EDT Clinical [place] [phone] [facility] [place] [address] documented as of this encounter Visit Diagnoses Not on filedocumented in this encounter Care Teams Combat Systems Operator Mine Warfare Relationship Specialty Start Date End Date Polo Pearce PA [address] [place] [address] PCP - General Internal Medicine 06/09/21 documented as of this encounter
--- OUTSIDE RECORDS SUMMARY | 2023-10-20 19:59 | XMS_ITS | Encounter Summary ---
Author Organization [facility] [place] [address] Care Team Providers Care Rubber Stamp Die Inspector Name Role Phone Polo Pearce Primary Care Provider [phone] Encounter Details Date Type Department Care Team (Late st Contact Info) Description 08/08/2021 Orders Only Cardiology at [address] [phone] Umberto Joy PA [facility] [place] [address] AVNRT (AV makayla re-entry tachycardia) (Primary Dx); [...] AM EDT Hospital Encounter [place] [address] Mary Reyes APRN [facility] [place] [address] 10/21/2023 11:30 AM EDT Appointment [place] [address] Mary Reyes [facility] [place] [address] 10/21/2023 12:30 PM EDT Appointment [place] [address] Mary Reyes [facility] [place] [place] [address] 10/21/2023 1:30 PM EDT Appointment [place] [address] Mary Reyes [facility] [place] [place] [address] 10/21/2023 2:30 PM EDT Appointment [place] [address] [place] [address] 10/26/2023 4:00 PM EDT Office Visit Cardiology at [address] [phone] Jaspreet Kinsey MD [facility] [place] [address] 10/28/2023 9:00 AM EDT Office [place] [address] 10/29/2023 10:00 AM EDT Clinical [place] [address] 10/29/2023 10:15 AM EDT Procedure [place] [address] 11/01/2023 5:00 PM EDT Office Visit [place] [address] Selene Browning, PhD [facility] [place] [address] 11/22/2023 4:40 PM EDT Office Visit Cardiology at [address] [phone] Porsha Mcdaniels MD [facility] [place] [address] 12/13/2023 10:00 AM EDT Clinical Support [place] [address] Lucero Romero, [place] [facility] [place] [address] documented as of this encounter Visit Diagnoses Diagnosis AVNRT (AV makayla re-entry tachycardia)- Primary Other specified cardiac dysrhythmias Heart failure with preserved ejection fraction, unspecified HF chronicity SVT (supraventricular tachycardia) Other specified cardiac dysrhythmias documented in this encounter Care Teams Rubber Stamp Die Inspector Relationship Specialty Start Date End Date Polo Pearce PA [address] [place] [address] PCP - General Internal Medicine 06/09/21 documented as of this encounter
--- OUTSIDE RECORDS SUMMARY | 2023-10-20 19:59 | XMS_ITS | Encounter Summary ---
[place] [address] Care Team Providers Care Metal Bumper Name Role Phone Polo Pearce Primary Care Provider [phone] Encounter Details Date Type Department Care Team (Late st Contact Info) Description 12/30/2021 8:00 PM EDT Ancillary Procedure [place] [phone] Jaspreet Kinsey MD [facility] [place] [address] Social History Tobacco Use Types Packs/Day Years [...] AM EDT Hospital Encounter [place] [address] Mary Reyes APRN [facility] [place] [address] 10/21/2023 11:30 AM EDT Appointment [place] [address] Mary Reyes [facility] [place] [place] [address] 10/21/2023 12:30 PM EDT Appointment [place] [address] Mary Reyes [facility] [place] [place] [address] 10/21/2023 1:30 PM EDT Appointment [place] [address] Mary Reyes [facility] [place] [place] [address] 10/21/2023 2:30 PM EDT Appointment [place] [address] [place] [address] 10/26/2023 4:00 PM EDT Office Visit Cardiology at [address] [phone] Jaspreet Kinsey MD [facility] [place] [address] 10/28/2023 9:00 AM EDT Office [place] [address] 10/29/2023 10:00 AM EDT Clinical [place] [address] 10/29/2023 10:15 AM EDT Procedure [place] [address] 11/01/2023 5:00 PM EDT Office [place] [address] Selene Browning, PhD [facility] [place] [address] 11/22/2023 4:40 PM EDT Office Visit Cardiology at [address] [address] Porsha Mcdaniels MD [facility] [place] [address] 12/13/2023 10:00 AM EDT Clinical [place] [address] Luecro Romero, [place] [facility] [place] [address] documented as of this encounter Procedures Procedure Name Priority Date/Time Associated Diagnosis Comments FILM LIBRARY STORAGE ONLY CT CHEST Routine 12/30/2021 7:55 PM EDT documented in this encounter Results * Film Library- Storage Only CT Chest (12/30/2021 7:55 PM EDT) Narrative [facility] - 12/30/2021 7:55 PM EDT This exam is auto-finalizing. It's purpose is for storage only. Jaspreet Kinsey MD IMG FILM LIBRARY ORD ERABLES [place], [place] documented in this encounter Visit Diagnoses Not on filedocumented in this encounter Care Teams Metal Bumper Relationship Specialty Start Date End Date Polo Pearce PA [address] [place] [address] PCP - General Internal Medicine 06/09/21 documented as of this encounter
--- OUTSIDE RECORDS SUMMARY | 2023-10-20 19:59 | XMS_ITS | Encounter Summary ---
Author Organization [facility] Address [facility] [place] [address] Care Team Providers Care Medical Record Coder Name Role Phone Polo Pearce Primary Care Provider [phone] Encounter Details Date Type Department Care Team (Late st Contact Info) Description 03/19/2022 Telephone Cardiology at [address] [phone] Jed Tovar MD [facility] [place] [address] Social History Tobacco Use Types Packs/Day Years [...] for two weeks. Has been admitted to [facility] ED for this with rule out of aorta dissection. However, pain continues. [place] [facility] [place], in [...] AM EDT Hospital Encounter [place] [phone] [place] [address] 10/21/2023 11:30 AM EDT Appointment [place] [address] [place] [address] 10/21/2023 12:30 PM EDT Appointment [place] [address] [place] [address] 10/21/2023 1:30 PM EDT Appointment [place] [phone] [place] [address] 10/21/2023 2:30 PM EDT Appointment [place] [phone] Mary Reyes APRN [facility] [place] [address] 10/26/2023 4:00 PM EDT Office Visit Cardiology at [address] [address] Jaspreet Kinsey MD [facility] [place] [address] 10/28/2023 9:00 AM EDT Office [place] [address] 10/29/2023 10:00 AM EDT Clinical [place] [address] 10/29/2023 10:15 AM EDT Procedure [place] [address] 11/01/2023 5:00 PM EDT Office [place] [phone] Selene Browning, PhD [facility] [place] [address] 11/22/2023 4:40 PM EDT Office Visit Cardiology at [address] [address] Porsha Mcdaniels MD [facility] [place] [address] 12/13/2023 10:00 AM EDT Clinical [place] [phone] [facility] [place] [address] documented as of this encounter Visit Diagnoses Not on filedocumented in this encounter Care Teams Medical Record Coder Relationship Specialty Start Date End Date Polo Pearce PA [address] [place] [address] PCP - General Internal Medicine 06/09/21 documented as of this encounter
--- OUTSIDE RECORDS SUMMARY | 2023-10-20 19:59 | XMS_ITS | Encounter Summary ---
Author Organization [facility] [place] [address] Care Team Providers Care Valve Technician Name Role Phone Polo Pearce Primary Care Provider [phone] Reason for Visit * Auth/Cert Specialty Diagnoses / Procedures Referred By Jayant harris Referred To Contact Diagnoses NSTEMI (non-ST elevated myocardial infarction) Chest Pain Procedures EMERGENCY IPI Sobeida Jimenez MD [facility] [place] [place] [address] [facility] Referral ID Status Reason Start Date Expiration Date Visits Re quested Visits Authorized [id number] 1 1 Encounter Details Date Type Department Care Team (Latest Contact Info) Description 12/30/2021 10:41 PM EDT - 01/01/2022 2:24 PM EDT Hospital Encounter [place] [address] Sobeida Jimenez MD [facility] [address] [place], [place] [id number] SVT (supraventricular tachycardia); Non-ST elevation NM (NSTEMI); NSTEMI (non-ST elevated myocardial infarction); Acute [...] Loida Madrigal Patient Age: 51 y.o. Language: Chadian Race: White Ethnicity: Not nor Admit date: 12/30/2021 Discharge date and time: 01/01/2022 Attending Physician: Sobeida Jimenez MD Discharge Physician: Sobeida Jimenez MD ID: Loida Madrigal is a 51 y.o. female w/ PMH of AVNRT, HFpEF, asthma, MARYLOU, obesity, mild PAH([facility] 06/2021) who presents today in transfer for [...] JOCY Franco [address] / [facility] [id number] Pending Studies and Lab Data: Official Ankle [...] ejection fraction 05/2021: subacute, presented to [facility] with RUQ pain, weight gain, and progressive dyspnea. Noted to caryr most fluid in abdomen ??? Restless legs ??? Non-ST elevation NM (NSTEMI) ??? Asthma ??? Rhinitis, nonallergic, chronic [...] plavix 600 with plan to transfer to [facility] for furthermanagement. Pertinent prior studies below: ?? [...] Type II Patient initially presented to the [facility] ED on 12/30 with chest pain. Initial [...] 12/31/2021 06:52 AMBP: 109/62 mmHg Patient Location: [facility]C450^B : 1970 Height: 163 cm Account: [id number] Age: 51 yrs Weight: 100 kg Gender: Female BSA: 2.0 m2 Ordering Physician: SOBEIDA JIMENEZ Referring Physician: KARIN ESPINOSA Performed By: HAIM Harris Reason For Study: Acute on chronic heart failure with preserved ejection fraction Exam Location: [facility]. Interpretation Summary -Left ventricle is [...] the prior study from 06/09/21 ?? Procedure Complete-[id number]. Satisfactory quality. There is sinus bradycardia. ?? [...] who have questions please contact the health daycare 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 Electronically signed by: Olive Barrera MD, [facility] ([phone]), at 01/01/2022 1:56 PM Discharge Conditions/Prognosis: Upon [...] scheduled with both your PCP and your straight knife machine cutter in the outpatient setting within the next [...] appointments: During 8am-5pm Wednesday through Wednesday call [phone] to speak with a nurse in the cardiology clinic All other times call [phone] and ask to speak to the microsoft net developer acid concentrator. Follow up Appointments: Future Appointments Date Time Provider Department Center 01/21/2022 9:00 AM Jaspreet Kinsey MD [facility] 01/12/2022, Appointment with Mr. Polo Pearce Environmental Services Floor Tech: Dr. Jaspreet Kinsey PCP: JOCY Franco at [phone] Your Inpatient Doctor(s) at [facility]: Sobeida Jimenez MD - Attending physician Dr. Paris Guerra MD - Resident Physician Dr. Yoselin Gómez DO, Resident Physician Dr. Edwin Mcghee MD, Fellow Physician Your Primary Care Provider: JOCY Franco [facility] [address] For questions regarding issues relating to your hospitalization on the Hospital Medicine Service, please contact your inpatient physician through the [facility] Program Therapist [phone]. Issues after hours and on weekends will be handled by the Hospitalist staff on-call. General Instructions None Future Appointments and Orders Future Appointments and Orders Future Appointments Provider Department Dept Phone 01/21/2022 9:00 AM Jaspreet Kinsey MD Cardiology at [place] Arrive at: [facility] [address] [phone] Inpatient Provider Contact Information: Deven Guerra Jr, MD Internal Medicine, PGY-3 [facility], pager [phone] Discharge References/Attachments: Discharge References/Attachments None documented in [...] scheduled with both your PCP and your straight knife machine cutter in the outpatient setting within the next [...] appointments: During 8am-5pm Wednesday through Wednesday call [phone] to speak with a nurse in the cardiology clinic All other times call [phone] and ask to speak to the microsoft net developer acid concentrator. Follow up Appointments: Future Appointments Date Time Provider Department Center 01/21/2022 9:00 AM Jaspreet Kinsey MD [facility] 01/12/2022, Appointment with Mr. Polo Pearce Environmental Services Floor Tech: Dr. Jaspreet Kinsey PCP: JOCY Franco at [phone] Your Inpatient Doctor(s) at [facility]: Sobeida Jimenez MD - Attending physician Dr. Paris Guerra MD - Resident Physician Dr. Yoselin Gómez DO, Resident Physician Dr. Edwin Mcghee MD, Fellow Physician Your Primary Care Provider: JOCY Franco [address] [facility] [address] For questions regarding issues relating to your hospitalization on the Hospital Medicine Service, please contact your inpatient physician through the [facility] Program Therapist [phone]. Issues after hours and on weekends will [...] as needed. fluticasone propionate (FLONASE) 50 mcg/actuation [place], Suspension 1 spray by Each Nare route [...] 1970 PCP: JOCY Franco PCP phone number: [phone] Date of Admission: 12/30/2021 ( Hospital Day 1 day ) Attending:Sobeida Jimenez MD ID: Loida Madrigal is a 51 y.o. female w/ PMH of AVNRT, HFpEF, asthma, MARYLOU, obesity, mild PAH([facility] 06/2021) who presents today in transfer for evaluation of chest pain. Patient Active Problem List Diagnosis ??? NSTEMI (non-ST elevated myocardial infarction) ??? 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 Obesity ??? Dyslipidemia ??? Obstructive sleep apnea syndrome ??? Insomnia ??? (HFpEF) heart failure with preserved ejection fraction Overview Note: 05/2021: subacute, presented to [facility] with RUQ pain, weight gain, and progressive dyspnea. Noted to caryr most fluid in abdomen ??? Restless legs ??? Non-ST elevation NM (NSTEMI) ??? Asthma ??? Rhinitis, nonallergic, chronic [...] plavix 600 with plan to transfer to [facility] for furthermanagement. Pertinent prior studies below: ?? 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 ??? fluticasone propionate (FLONASE) 50 mcg/actuation [place], Suspension 1 spray by Each Nare route [...] ??? heparin (porcine) infusion 1,000 Units/hr (12/30/21 2635) PRN Meds: lidocaine, nitroGLYcerin, sodium chloride 0.9 [...] CP and palpitations LH 2019: normal cors [facility] 2021: mild PHTN, mPA 24, CI 1.57 [...] Pt up to toilet. Diet order placed, cardiac/[facility] diet. PRN ibuprofen ordered and given to [...] COVID test: Lab Results Component Value Date [id number] Not Detected 06/13/2021 Present on Admission: ??? 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 Current Living Arrangements: home/apartment/condo. Accessibility Concerns:no concerns. Current DME: none [address] [facility] [address] Social & Family Supports: Extended Emergency Contact [...] private car when medically ready. Registered Nurse Roll Forming Machine Operator / Director Of Product Management will continue to follow patient???s progress and remain available if situation changes for coordination of care, psychosocial support and/or discharge planning. Office of Care Management documented in this encounter Plan of Treatment Upcoming Encounters Date Type Department Care Team (Late st Contact Info) Description 10/21/2023 10:30 AM EDT Hospital En[place] [phone] Mary Reyes APRN [facility] [place] [address] 10/21/2023 11:30 AM EDT Appointment [place] [address] Mary Reyes [facility] [place] [address] 10/21/2023 12:30 PM EDT Appointment [place] [address] Mary Reyes [facility] [place] [address] 10/21/2023 1:30 PM EDT Appointment [place] [address] [place] [address] 10/21/2023 2:30 PM EDT Appointment [place] [address] [place] [address] 10/26/2023 4:00 PM EDT Office Visit Cardiology at [address] [phone] Jaspreet Kinsey MD [facility] [place] [address] 10/28/2023 9:00 AM EDT Office [place] [address] 10/29/2023 10:00 AM EDT Clinical [place] [address] 10/29/2023 10:15 AM EDT Procedure [place] [address] 11/01/2023 5:00 PM EDT Office [place] [address] Selene Browning, PhD [facility] [place] [address] 11/22/2023 4:40 PM EDT Office Visit Cardiology at [address] [address] Porsha Mcdaniels MD [facility] [place] [address] 12/13/2023 10:00 AM EDT Clinical [place] [address] [facility] [place] [address] documented as of this encounter Procedures Procedure [...] 12/31/2021 12:20 AM EDT BASIC METABOLIC PANEL Routine 12/31/2021 12:20 AM EDT documented in [...] who have questions please contact the health daycare 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 ? Electronically signed by: Olive Barrera MD, [facility] ([phone]), at 01/01/2022 1:56 PM Narrative 01/01/2022 1:56 [...] patients who have questions please contactthe health daycare 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 Electronically signed by: Olive Barrera MD, [facility]([phone]), at 01/01/2022 1:56 PM Sobeida Jimenez MD IMG DX ORDERABLES * Magnesium (01/01/2022 8:56 AM EDT) Pathologist [facility] Magnesium 0.96 0.69 - 1.07 mmol/L [facility] Blood 01/01/2022 8:56 AM EDT 01/01/2022 9:19 AM EDT Narrative Resulting Agency Comment Spec In Lab Sobeida Jimenez MD CHEMISTRY ORDERABLES [facility] [place] [address] * Differential, Automated (01/01/2022 4:15 AM EDT) Neutrophil % 59.8 % [facility] Neutrophil Absolute 3.72 1.70 - 6.10 x10(3)/mcL [facility] Lymph % 26.0 % [facility] Lymphocytes Abs 1.6 0.9 - 3.2 x10(3)/[facility] Monocyte % 8.7 % [facility] Monocyte Abs 0.5 0.3 - 0.9 x10(3)/[facility] Eos % 4.5 % [facility] Eosinophils Abs 0.3 0.0 - 0.4 x10(3)/[facility] Basophil % 0.8 % [facility] Baso Absolute 0.0 0.0 - 0.1 x10(3)/[facility] Immature Gran % 0.20 % [facility] Comment: Immature granulocytes(IG's)percentage and absolute count will include metamyelocytes, myelocytes, and promyelocytes. Blood smears from CBCs yielding IG's will be scanned manually for concordance. If this scan disagrees with the automated IG or if promyelocytes are noted, a manual differential will be performed. Immature Gran Absolute 0.01 0.00 - 0.04 x10(3)/[facility] Blood 01/01/2022 4:15 AM EDT 01/01/2022 4:23 AM EDT Narrative Resulting Agency Comment Spec In Lab Lorna Haider MD HEMATOLOGY ORDERABL ES [facility] [place] [address] * Hemogram (01/01/2022 4:15 AM EDT) White Blood Cell 6.2 4.0 - 9.5 x10(3)/[facility] Red Blood Cell 4.43 4.00 - 5.21 x10(6)/[facility] Hemoglobin 13.9 11.7 - 15.5 g/dL [facility] Hematocrit 41.3 35.7 - 45.8 % [facility] Mean Cell Volume 93.2 82.6 - 94.4 fL [facility] Mean Cell Hemoglobin 31.4 27.1 - 32.0 pg [facility] Mean Cell Hemoglobin Concentration 33.7 31.7 - 35.0 g/dL [facility] Platelet 204 145 - 357 x10(3)/[facility] RDW Standard Deviation 43.4 37.0 - 46.0 fL [facility] RDW coefficient of variation 12.6 11.5 - 14.1 % [facility] Mean Platelet Volume 10.6 7.6 - 12.9 fL [facility] NRBC% auto 0.0 % [facility] NRBC Absolute 0.000 0.000 - 0.000 x10(3)/[facility] Blood 01/01/2022 4:15 AM EDT 01/01/2022 4:23 AM EDT Narrative Resulting Agency Comment Spec In Lab Lorna Haider MD HEMATOLOGY ORDERABL ES [facility] [place] [address] * (ABNORMAL) Basic Metabolic Panel (non-fasting) (01/01/2022 4:15 AM EDT) Glucose 103 65 - 199 mg/dL [facility] Comment:Diabetes: >=200 mg/d L plus symptoms Blood Urea Nitrogen 26(H) 8 - 18 mg/dL [facility] Creatinine 1.04 0.70 - 1.20 mg/dL [facility] Sodium 137 135 - 145 mmol/L [facility] Potassium 4.0 3.5 - 5.0 mmol/L [facility] Comment: Please note: ??Patients with WBC >100,000 may have falsely elevated Potassium levels. ??For accurate Potassium quantification in these patients send serum separator tube (gold top) for subsequent determinations. ??Contact the Clinical Chemistry Laboratory if there are any questions. Chloride 109(H) 98 - 107 mmol/L [facility] Carbon Dioxide 15(L) 22 - 31 mmol/L [facility] Anion Gap 13 5 - 15 mmol/L [facility] Calcium 8.9 8.5 - 10.5 mg/dL [facility] Est Glomerular Filtration Rate 65 >=60 mL/min/1. 73 m?? [facility] [...] Jimenez MD CHEMISTRY ORDERABLES Performing Organization Address City/State/[facility] Co de Phone Number [facility] [place] [address] * ECHO COMPLETE (12/31/2021 8:02 AM EDT) Anatomical Region Laterality Modality Cardiac Other 12/31/2021 6:52 AM EDT Narrative 12/31/2021 8:30 AM EDT ? Echocardiogram Report Name: LOIDA MADRIGAL ? Study Date: 12/31/2021 06:52 AMBP: 109/62 mmHg ? Patient [facility]B : 1970 ? Height: 163 cm ? Account: [id number] Age: 51 yrs ? Weight: 100 kg Gender: Female ?BSA: 2.0 m2 Ordering Physician: SOBEIDA JIMENEZ Referring Physician: KARIN ESPINOSA Performed By: HAIM Harris Reason For Study: Acute on chronic heart failure with preserved ejection fraction Exam Location: [facility]. Interpretation Summary -Left ventricle is [...] to the prior study from 06/09/21 Procedure Complete-[id number]. Satisfactory quality. There is sinus bradycardia. Left [...] Study Date: 206:52 AMBP: 109/62 mmHg Patient Location:[facility]^C450^B : 1970 Height: 163 cm Account: [id number] Age: 51 yrs Weight: 100 kg Gender: Female BSA: 2.0 m2 Ordering Physician: SOBEIDA JIMENEZ Referring Physician: KARIN ESPINOSA Performed By: HAIM Harris Reason For Study: Acute on chronic heart failure with preserved ejectionfraction Exam Location: [facility]. Interpretation Summary -Left ventricle is [...] to the prior study from 06/09/21 Procedure Complete-[id number]. Satisfactory quality. There is sinus bradycardia. Left [...] Heparin (unfractionated) Level (12/31/2021 7:01 AM EDT) UF Heparin 0.43 IU/mL [facility] Comment: Heparin (anti-Xa) levels should [...] Lab Sobeida Jimenez MD HEMATOLOGY ORDERABLE S [facility] [place] [address] * T4, free (12/31/2021 7:01 AM EDT) Pathologist [facility] Free T4 1.16 0.93 - 1.70 ng/dL [facility] Comment: Reference Interval (ng/dL): Females: ??First Trimester: 0.97-1.68 ??Second Trimester: 0.77-1.51 ??Third Trimester: 0.77-1.49 Blood 12/31/2021 7:01 AM EDT 12/31/2021 7:11 AM EDT Narrative Resulting Agency Comment Spec In Lab Sobeida Jimenez MD CHEMISTRY ORDERABLES Performing Organization Address [facility] de Phone Number [facility] [place] [address] * (ABNORMAL) Troponin (12/31/2021 3:28 AM EDT) [facility] Troponin-T, High Sensitivity 21(H) <=14 ng/L [facility] Comment: This patient's troponin [...] troponin value can be found in the [facility] Laboratory Test Catalog Troponin - [facility] Test Catalog Reference: Fourth [place] Definition of Myocardial Infarction. Journal of the [place] College [employer] 2018;72:2462-0286 Blood 12/31/2021 3:28 AM EDT 12/31/2021 4:31 AM EDT Narrative Resulting Agency Comment Spec In Lab Sobeida Jimenez MD CHEMISTRY ORDERABLES Performing Organization Address City/[facility]/ZIP Co de Phone Number [facility] [place] [address] * EKG 12 Lead (12/31/2021 3:23 AM EDT) Ventricular rate 44 BPM MUSE SYSTEM Atrial Rate 44 BPM MUSE SYSTEM P-R Interval 190 ms MUSE SYSTEM QRS Duration 86 ms MUSE SYSTEM Q-T Interval 562 ms MUSE SYSTEM QTC Calculated (Bezet) 480 ms MUSE SYSTEM Calculated P Ragland 32 degrees MUSE SYSTEM Calculated R Ragland 58 degrees MUSE SYSTEM Calculated T Ragland 24 degrees MUSE SYSTEM INTERPRETATION Marked sinus bradycardia Possible Lateral infarct (cited on or before 30-DEC-2021) Nonspecific ST and T wave abnormality Prolonged QT Abnormal ECG When compared with ECG of 30-DEC-2021 22:45, No significant change was found I personally reviewed the tracing and edited the fellows interpretation Confirmed by fellow MD Rosalinda, Alejandro ([id number]) on 12/31/2021 9:13:46 PM Confirmed by MD Angelo Danette ([id number]) on 01/01/2022 7:24:12 AM MUSE SYSTEM 12/31/2021 3:23 AM EDT 01/01/2022 7:24 AM EDT Sobeida Jimenez MD ECG ORDERABLES Performing Organization Address City/[facility]/ZIP Co de Phone Number MUSE SYSTEM * Heparin (unfractionated) Level (12/31/2021 12:20 AM EDT) UF Heparin 0.40 IU/mL [facility] Comment: Specimen drawn more than [...] MD HEMATOLOGY ORDERABLE S Performing Organization Address City/State/[facility] Co de Phone Number [facility] [place] [address] * Differential, Automated (12/31/2021 12:20 AM EDT) Neutrophil % 57.0 % [facility] Neutrophil Absolute 4.48 1.70 - 6.10 x10(3)/[facility] Lymph % 32.4 % [facility] Lymphocytes Abs 2.6 0.9 - 3.2 x10(3)/[facility] Monocyte % 6.4 % [facility] Monocyte Abs 0.5 0.3 - 0.9 x10(3)/[facility] Eos % 3.3 % [facility] Eosinophils Abs 0.3 0.0 - 0.4 x10(3)/[facility] Basophil % 0.5 % [facility] Baso Absolute 0.0 0.0 - 0.1 x10(3)/[facility] Immature Gran % 0.40 % [facility] Comment: Immature granulocytes(IG's)percentage and absolute count will include metamyelocytes, myelocytes, and promyelocytes. Blood smears from CBCs yielding IG's will be scanned manually for concordance. If this scan disagrees with the automated IG or if promyelocytes are noted, a manual differential will be performed. Immature Gran Absolute 0.03 0.00 - 0.04 x10(3)/[facility] Blood 12/31/2021 12:2 0 AM EDT 12/31/2021 12:41 AM EDT Narrative Resulting Agency Comment Spec In Lab Lorna Haider MD HEMATOLOGY ORDERABL ES [facility] [place] [address] * Hemogram (12/31/2021 12:20 AM EDT) White Blood Cell 7.9 4.0 - 9.5 x10(3)/[facility] Red Blood Cell 4.24 4.00 - 5.21 x10(6)/[facility] Hemoglobin 13.3 11.7 - 15.5 g/dL [facility] Hematocrit 39.1 35.7 - 45.8 % [facility] Mean Cell Volume 92.2 82.6 - 94.4 fL [facility] Mean Cell Hemoglobin 31.4 27.1 - 32.0 pg [facility] Mean Cell Hemoglobin Concentration 34.0 31.7 - 35.0 g/dL [facility] Platelet 209 145 - 357 x10(3)/[facility] RDW Standard Deviation 43.2 37.0 - 46.0 [facility] RDW coefficient of variation 12.8 11.5 - 14.1 % [facility] Mean Platelet Volume 11.2 7.6 - 12.9 fL [facility] NRBC% auto 0.0 % [facility] NRBC Absolute 0.000 0.000 - 0.000 x10(3)/[facility] Blood 12/31/2021 12:2 0 AM EDT 12/31/2021 12:41 AM EDT Narrative Resulting Agency Comment Spec In Lab Lorna Haider MD HEMATOLOGY ORDERABL ES Performing Organization Address City/[facility]/ZIP Co de Phone Number [facility] [place] [address] * (ABNORMAL) Troponin (12/31/2021 12:20 AM EDT) Troponin-T, High Sensitivity 19(H) <=14 ng/L [facility] Comment: This patient's troponin [...] troponin value can be found in the [facility] Laboratory Test Catalog Troponin - [facility] Test Catalog Reference: Fourth [place] Definition of Myocardial Infarction. Journal of the [place] College [employer] 2018;72:7394-7074 Blood 12/31/2021 12:2 0 AM EDT 12/31/2021 12:41 AM EDT Narrative Resulting Agency Comment Spec In Lab Sobeida Jimenez MD CHEMISTRY ORDERABLES Performing Organization Address City/[facility]/ZIP Co de Phone Number [facility] [place] [address] * (ABNORMAL) Hemoglobin A1c (12/31/2021 12:20 AM EDT) Hemoglobin A1c 5.7(H) 4.3 - 5.6 % [facility] [...] Diabetes Care 2013; 36: Suppl. 1, S67-74 Estimated Average Glucose 118 mg/dL [facility] Comment: eAG equivalents for [...] into estimated average glucose values. ??Diabetes Care 2008:31(8):5783-0494. Blood 12/31/2021 12:2 0 AM EDT 12/31/2021 12:42 AM EDT Narrative Resulting Agency Comment Spec In Lab Sobeida Jimenez MD CHEMISTRY ORDERABLES [facility] [place] [address] * Lipid Panel (Reflex Direct LDL) (12/31/2021 12:20 AM EDT) Cholesterol, Total 122 mg/dL [facility] Comment: Lower Risk: <200 mg/dL Average Risk: 200-239 mg/dL Higher Risk: >uo=156 mg/dL Triglyceride 111 mg/dL [facility] Comment: Average Risk/Lower Risk: <150 mg/dL Borderline High Risk: 150-199 mg/dL High Risk: 200-499 mg/dL Very High Risk: >ma=181 mg/dL HDL Cholesterol 35 mg/dL [facility] Comment: Males: ?? Higher Risk: <40 mg/dL Females: ?? Higher Risk: <50 mg/dL LDL Cholesterol 65 mg/dL [facility] Comment: Lowest Risk: <100 mg/dL Lower Risk: 100-129 mg/dL Borderline High Risk: 130-159 mg/dL High Risk: 160-189 mg/dL Very High Risk: >zf=246 mg/dL Cholesterol/HDL Ratio 3.5 ratio [facility] Lipid Interpretation See Note [facility] Comment: Lipid management should be guided by a patient? s ASCVD risk, goals and preferences. ACC/AHA Guidelines recommend high intensity statin if clinical ASCVD or LDL greater than or equal to 190 mg/dL. http://Guavasurl.com/XCM-VCN-Kcqqxrmyb Adults aged 40-75 with LDL 70-189 mg/dL should have their 10 year ASCVD risk estimated with the ACC/AHA ASCVD risk millwork estimator http://tools.acc.org/PNRXE-Cunz-Nymtqnxzz/ Statin should be discussed if risk greater [...] Jimenez MD CHEMISTRY ORDERABLES Performing Organization Address [facility] de Phone Number [facility] [place] [address] * (ABNORMAL) APTT (12/31/2021 12:20 AM EDT) Partial Thromboplastin Time 90(H) 25 - 37 sec [facility] MD HEMATOLOGY ORDERABLE S Performing Organization Address [facility] Phone Number [facility] [place] [address] * Prothrombin Time (12/31/2021 12:20 AM EDT) Prothrombin Time 12.5 9.4 - 12.5 sec [facility] International Normalization Ratio 1.1 [facility] Comment: An [...] Organization Address [facility]/ZIP Co de Phone Number [facility] [place] [address] * (ABNORMAL) pro-Brain Natriuretic Peptide (12/31/2021 12:20 AM EDT) NT-proBNP 2,515(H) <=124 pg/mL [facility] Blood 12/31/2021 12:2 0 AM EDT 12/31/2021 12:41 AM EDT Narrative Resulting Agency Comment Spec In Lab Sobeida Jimenez MD CHEMISTRY ORDERABLES Performing Organization Address [facility] Co de Phone Number [facility] [place] [address] * (ABNORMAL) TSH (12/31/2021 12:20 AM EDT) Thyroid Stimulating Hormone 7.36(H) 0.27 - 4.20 mcIU/mL [facility] Comment: Reference Interval (mcIU/mL): Females: ??First Trimester: 0.23-3.88 ??Second Trimester: 0.22-3.90 ??Third Trimester: 0.44-4.66 Blood 12/31/2021 12:2 0 AM EDT 12/31/2021 12:41 AM EDT Narrative Resulting Agency Comment Spec In Lab Sobeida Jimenez MD CHEMISTRY ORDERABLES Performing Organization Address [facility]/ZIP Co de Phone Number [facility] [place] [address] * Phosphorus (12/31/2021 12:20 AM EDT) Phosphorus 3.5 2.5 - 4.5 mg/dL [facility] Blood 12/31/2021 12:2 0 AM EDT 12/31/2021 12:41 AM EDT Narrative Resulting Agency Comment Spec In Lab Sobeida Jimenez MD CHEMISTRY ORDERABLES Performing Organization Address City/[facility]/ZIP Co de Phone Number [facility] [place] [address] * Magnesium (12/31/2021 12:20 AM EDT) Magnesium 0.87 0.69 - 1.07 mmol/L [facility] Blood 12/31/2021 12:2 0 AM EDT 12/31/2021 12:41 AM EDT Narrative Resulting Agency Comment Spec In Lab Sobeida Jimenez MD CHEMISTRY ORDERABLES Performing Organization Address [facility] Co de Phone Number [facility] [place] [address] * (ABNORMAL) Basic Metabolic Panel (non-fasting) (12/31/2021 12:20 AM EDT) Pathologist [facility] Glucose 88 65 - 199 mg/dL [facility] Comment:Diabetes: >=200 mg/d L plus symptoms Blood Urea Nitrogen 22(H) 8 - 18 mg/dL [facility] Creatinine 0.95 0.70 - 1.20 mg/dL [facility] Sodium 140 135 - 145 mmol/L [facility] Potassium 4.1 3.5 - 5.0 mmol/L [facility] Comment: Please note: ??Patients with WBC >100,000 may have falsely elevated Potassium levels. ??For accurate Potassium quantification in these patients send serum separator tube (gold top) for subsequent determinations. ??Contact the Clinical Chemistry Laboratory if there are any questions. Chloride 110(H) 98 - 107 mmol/L [facility] Carbon Dioxide 17(L) 22 - 31 mmol/L [facility] Anion Gap 13 5 - 15 mmol/L [facility] Calcium 8.5 8.5 - 10.5 mg/dL [facility] Est Glomerular Filtration Rate 72 >=60 mL/min/1. 73 m?? [facility] [...] In Lab Sobeida Jimenez MD CHEMISTRY ORDERABLES [facility] [place] [address] documented in this encounter Visit Diagnoses Diagnosis SVT (supraventricular tachycardia) Other specified cardiac dysrhythmias Non-ST elevation NM (NSTEMI) Acute myocardial infarction, unspecified site, episode [...] DAILY, First dose (after last reorder) on Aura 01/01/22 at 0900, Until Discontinued Given 01/01/2022 9:05 AM EDT 20 mg gabapentin (Neurontin) capsule 300 mg 300 mg, Oral, NIGHTLY, First dose on Wed12/31/21 at 0130, Until Discontinued, Routine Given 12/31/2021 8:3 2 PM EDT 300 mg Given 12/31/2021 2:16 AM EDT 300 mg heparin (porcine) 50 units/mL in sodium chloride 0.45% 500 mL infusion 0-5,000 Units/hr (0-100 mL/hr), Intravenous, CONTINUOUS, Starting on Tu12/30/21 at 2345, Until Wed12/31/21 at 0725, Begin [...] Discontinued, Routine 0940 (Given - Provider: Angelina Oquendo, ERWIN) 0905 (Given - Provider: Angelina Oquendo, ERWIN) empagliflozin (Jardiance) tablet 10 mg 10 mg, [...] on Wed12/31/21 at 1600, Until Discontinued, Routine 161 (Given - Provider: Angelina Oquendo RN)2031 (Given - Provider: Patricia Jacobs RN) sodium chloride 0.9 % (flush) (BD PosiFlush Normal Saline 0.9) flush 5 mL 5 mL, Intravenous, 2 TIMES DAILY, First dose on Wed12/30/21 at 2345, Until Discontinued, Routine 021 (Given - Provider: Patricia Jacobs RN)0940 (Given - Provider: Angelina Oquendo RN)2099 (Given - Provider: Patricia Jacobs RN) 09 (Given - Provider: Angelina Oquendo RN) sodium [...] Jacobs RN) 0725 (Stopped - Provider: Angelina Oquendo, ERWIN) PRN Medication Order 12/30/2021 12/31/2021 01/01/2022 ibuprofen (Advil) tablet 600 mg 600 mg, Oral, EVERY 6 HOURS PRN, Starting on Wed12/31/21 at 1614, Until Aura 01/01/22 at 1624, Pain, Administer orally with milk or food to minimize GI irritation. Maximum dose of 3,200 mg from all sources in 24 hours, Routine 1623 (Given - Provider: Angelina Oquendo RN) lidocaine (Xylocaine) 1% (10 mg/mL) injection 3 [...] at 2252, Until Aura 01/01/22 at 1624, flush, Flush pertains to all [...] PROTOCOL, Starting on Wed12/30/21 at 2249, Until 12/31/21 at 0725, Per Protocol, START ADJUSTMENT SCHEDULE [...] Routine documented in this encounter Care Teams Valve Technician Relationship Specialty Start Date End Date Polo Pearce PA [address] [place] [address] PCP - General Internal Medicine 06/09/21 documented as of this encounter
--- OUTSIDE RECORDS SUMMARY | 2023-10-20 19:59 | XMS_ITS | Encounter Summary ---
Author Organization [facility] [place] [address] Care Team Providers Care Photoengraving Helper Name Role Phone Polo Pearce Primary Care Provider [phone] Reason for Visit * Reason Onset Date Comments Chest Pain 07/27/2022 Shortness of Breath 07/27/2022 Fatigue 07/27/2022 Encounter Details Date Type Department Care Team (Late st Contact Info) Description 07/27/2022 Telephone Cardiology at [address] [address] Jaspreet Kinsey MD [facility] [place] [address] Chest Pain; Shortness of Breath; Fatigue Social [...] EDT Florencia has been admitted inpatient at [facility]. * Telephone Encounter - Aide Glass - 07/27/2022 3:35 PM EDT Patient called and said she is now in [facility]. She said they did a CT scan and found blood clots on her lungs. She also has a fluid buildup. Please call her @ [phone] * Telephone Encounter - Nilda Mayes RN [...] for assessment. Plan: Florencia will go to [facility] for evaluation. documented in this encounter Plan of Treatment Upcoming Encounters Date Type Department Care Team (Late st Contact Info) Description 10/21/2023 10:30 AM EDT Hospital Encounter [place] [address] Mary [place] [address] 10/21/2023 11:30 AM EDT Appointment [place] [address] [place] [address] 10/21/2023 12:30 PM EDT Appointment [place] [address] Mary Reyes ENDO TECH [facility] [place] [address] 10/21/2023 1:30 PM EDT Appointment [place] [address] Mary Reyes ENDO TECH [facility] [place] [address] 10/21/2023 2:30 PM EDT Appointment [place] [address] Mary Reyes, [place] [address] 10/26/2023 4:00 PM EDT Office Visit Cardiology at [address] [address] Jaspreet Kinsey MD [facility] [place] [address] 10/28/2023 9:00 AM EDT Office Visit [place] [address] 10/29/2023 10:00 AM EDT Clinical Support [place] [address] 10/29/2023 10:15 AM EDT Procedure visit [place] [address] 11/01/2023 5:00 PM EDT Office [place] [address] Selene Browning, PhD [facility] [place] [address] 11/22/2023 4:40 PM EDT Office Visit Cardiology at [address] [phone] Porsha Mcdaniels MD [facility] [place] [address] 12/13/2023 10:00 AM EDT Clinical [place] [address] [facility] [place] [address] documented as of this encounter Visit Diagnoses Not on filedocumented in this encounter Care Teams Photoengraving Helper Relationship Specialty Start Date End Date Polo Pearce PA [address] [place] [address] PCP - General Internal Medicine 06/09/21 documented as of this encounter
--- OUTSIDE RECORDS SUMMARY | 2023-10-20 19:59 | XMS_ITS | Encounter Summary ---
Author Organization [facility] Address [facility] [place] [address] Care Team Providers Care Slip Cover Sewer Name Role Phone Polo Pearce Primary Care Provider [phone] Reason for Visit * Reason Comments Congestive Heart Failure Encounter Details Date Type Department Care Team (Late st Contact Info) Description 03/16/2022 3:20 PM EST Office Visit Cardiology at [address] [address] Jaspreet Kinsey MD [facility] [place] [address] Heart failure with preserved ejection fraction, unspecified [...] [facility] [...] Rfl: ??? fluticasone propionate (FLONASE) 50 mcg/actuation [place], Suspension, 1 spray by Each Nare routedaily., [...] preserved ejection fraction 05/2021: subacute, presented to [facility] with RUQ pain, weight gain, [...] AM EDT Hospital Encounter [place] [address] [place] [address] 10/21/2023 11:30 AM EDT Appointment [place] [address] [place] [address] 10/21/2023 12:30 PM EDT Appointment [place] [address] [place] [address] 10/21/2023 1:30 PM EDT Appointment [place] [address] [place] [address] 10/21/2023 2:30 PM EDT Appointment [place] [address] [place] [address] 10/26/2023 4:00 PM EDT Office Visit Cardiology at [address] [phone] Jaspreet Kinsey MD [facility] [place] [address] 10/28/2023 9:00 AM EDT Office Visit [place] [address] 10/29/2023 10:00 AM EDT Clinical Support [place] [address] 10/29/2023 10:15 AM EDT Procedure visit [place] [address] 11/01/2023 5:00 PM EDT Office [place] [phone] Selene Browning, PhD [facility] [place] [address] 11/22/2023 4:40 PM EDT Office Visit Cardiology at [address] [phone] Porsha Mcdaniels MD [facility] [place] [address] 12/13/2023 10:00 AM EDT Clinical [place] [phone] [facility] [place] [address] documented as of this encounter Visit Diagnoses Diagnosis Heart failure with preserved ejection fraction, unspecified HF chronicity SVT (supraventricular tachycardia) Other specified cardiac dysrhythmias documented in this encounter Care Teams Slip Cover Sewer Relationship Specialty Start Date End Date Polo Pearce PA [address] [place] [address] PCP - General Internal Medicine 06/09/21 documented as of this encounter
--- OUTSIDE RECORDS SUMMARY | 2023-10-20 19:59 | XMS_ITS | Encounter Summary ---
Author Organization [facility] [place] [address] Care Team Providers Care [employer] Name Role Phone Polo Pearce Primary Care Provider [phone] Encounter Details Date Type Department Care Team (Late st Contact Info) Description 03/11/2022 Orders Only Cardiology at [address] [phone] Jed Tovar MD [facility] [address] SVT (supraventricular tachycardia) Social History Tobacco Use [...] AM EDT Hospital Encounter [place] [phone] Mary Reyes APRN [facility] [place] [address] 10/21/2023 11:30 AM EDT Appointment [place] [address] Mary Reyes [facility] [place] [address] 10/21/2023 12:30 PM EDT Appointment [place] [address] Mary Reyes [facility] [place] [address] 10/21/2023 1:30 PM EDT Appointment [place] [address] [place] [address] 10/21/2023 2:30 PM EDT Appointment [place] [address] [place] [address] 10/26/2023 4:00 PM EDT Office Visit Cardiology at [address] [phone] Jaspreet Kinsey MD [facility] [place] [address] 10/28/2023 9:00 AM EDT Office Visit [place] [address] 10/29/2023 10:00 AM EDT Clinical Support [place] [address] 10/29/2023 10:15 AM EDT Procedure [place] [address] 11/01/2023 5:00 PM EDT Office Visit Gastroenterology at [place] [phone] Selene Browning, PhD [facility] [place] [address] 11/22/2023 4:40 PM EDT Office [place] [address] Porsha Mcdaniels MD [facility] [place] [address] 12/13/2023 10:00 AM EDT Clinical Support [place] [address] Lucero Romero, [place] [facility] [place] [address] documented as of this encounter Visit Diagnoses Diagnosis SVT (supraventricular tachycardia) Other specified cardiac dysrhythmias documented in this encounter Care Teams [employer] Relationship Specialty Start Date End Date Polo Pearce PA [address] [place] [address] PCP - General Internal Medicine 06/09/21 documented as of this encounter
--- OUTSIDE RECORDS SUMMARY | 2023-10-20 19:59 | XMS_ITS | Encounter Summary ---
[place] [address] Care Team Providers Care Print Machine Operator Name Role Phone Polo Pearce Primary Care Provider [phone] Encounter Details Date Type Department Care Team (Late st Contact Info) Description 03/10/2022 External [place] [address] Social History Tobacco Use Types Packs/Day Years [...] AM EDT Hospital Encounter [place] [address] [place] [address] 10/21/2023 11:30 AM EDT Appointment [place] [phone] [place] [address] 10/21/2023 12:30 PM EDT Appointment [place] [address] [place] [address] 10/21/2023 1:30 PM EDT Appointment [place] [address] [place] [address] 10/21/2023 2:30 PM EDT Appointment [place] [address] [place] [address] 10/26/2023 4:00 PM EDT Office Visit Cardiology at [address] [phone] Jaspreet Kinsey MD [facility] [place] [address] 10/28/2023 9:00 AM EDT Office [place] [address] 10/29/2023 10:00 AM EDT Clinical [place] [address] 10/29/2023 10:15 AM EDT Procedure [place] [address] 11/01/2023 5:00 PM EDT Office [place] [address] Selene Browning, PhD [facility] [address] 11/22/2023 4:40 PM EDT Office Visit Cardiology at [address] [phone] Porsha Mcdaniels MD [facility] [place] [address] 12/13/2023 10:00 AM EDT Clinical [place] [address] Lucero Romero, RD [facility] [place] [address] documented as of this encounter Procedures Procedure Name Priority Date/Time Associated Diagnosis Comments ECG SCAN Routine 03/10/2022 documented in this encounter Results * Scan Doc: ECG (03/10/2022) Historical Provider MD FLEMING MGR SCAN EX T ORDR/RSLT documented in this encounter Visit Diagnoses Not on filedocumented in this encounter Care Teams Print Machine Operator Relationship Specialty Start Date End Date Polo Pearce PA [address] [place] [address] PCP - General Internal Medicine 06/09/21 documented as of this encounter
--- OUTSIDE RECORDS SUMMARY | 2023-10-20 19:59 | XMS_ITS | Encounter Summary ---
[place] [address] Care Team Providers Care Adult Protective Caseworker Name Role Phone Polo Pearce Primary Care Provider [phone] Encounter Details Date Type Department Care Team (Late st Contact Info) Description 06/30/2022 Orders Only Cardiology at [address] [phone] Jaspreet Kinsey MD [facility] [place] [address] Chest pain, unspecified type Social History Tobacco [...] AM EDT Hospital Encounter [place] [address] Mary Reyes APRN [facility] [place] [address] 10/21/2023 11:30 AM EDT Appointment [place] [address] Mary Reyes [facility] [place] [address] 10/21/2023 12:30 PM EDT Appointment [place] [address] Mary Reyes [facility] [place] [address] 10/21/2023 1:30 PM EDT Appointment [place] [address] [place] [address] 10/21/2023 2:30 PM EDT Appointment [place] [address] [place] [address] 10/26/2023 4:00 PM EDT Office Visit Cardiology at [address] [phone] Jaspreet Kinsey MD [facility] [place] [address] 10/28/2023 9:00 AM EDT Office [place] [address] 10/29/2023 10:00 AM EDT Clinical [place] [address] 10/29/2023 10:15 AM EDT Procedure [place] [address] 11/01/2023 5:00 PM EDT Office Visit [place] [address] Selene Browning, PhD [facility] [place] [address] 11/22/2023 4:40 PM EDT [place] [address] Porsha Mcdaniels MD [facility] [address] 12/13/2023 10:00 AM EDT Clinical [place] [address] [facility] [place] [address] documented as of this encounter Visit Diagnoses Diagnosis Chest pain, unspecified type documented in this encounter Care Teams Adult Protective Caseworker Relationship Specialty Start Date End Date Polo Pearce PA [address] [place] [address] PCP - General Internal Medicine 06/09/21 documented as of this encounter
--- OUTSIDE RECORDS SUMMARY | 2023-10-20 19:59 | XMS_ITS | Encounter Summary ---
Author Organization [facility] Address [facility] [place] [address] Care Team Providers Care Automotive Product Specialist Name Role Phone Polo Pearce Primary Care Provider [phone] Encounter Details Date Type Department Care Team (Late st Contact Info) Description 04/16/2022 Refill Cardiology at [address] [place] [address] Jaspreet Kinsey MD [facility] [place] [address] Social History Tobacco Use Types Packs/Day Years [...] ??Order for CCTA placed by Dr. Kinsey. [facility] will contact you for scheduling. * [...] her tocontinue on this. Phone # Is [phone] documented in this encounter Plan of Treatment Upcoming Encounters Date Type Department Care Team (Late st Contact Info) Description 10/21/2023 10:30 AM EDT Hospital Encounter [place] [address] Mary Reyes APRN [facility] [place] [address] 10/21/2023 11:30 AM EDT Appointment [place] [address] Mary Reyes [employer] [facility] [place] [address] 10/21/2023 12:30 PM EDT Appointment [place] [address] Mary Reyes [employer] [facility] [place] [address] 10/21/2023 1:30 PM EDT Appointment [place] [address] Mary Reyes [employer] [facility] [place] [address] 10/21/2023 2:30 PM EDT Appointment [place] [address] Mary Reyes APRN [facility] [place] [address] 10/26/2023 4:00 PM EDT Office Visit Cardiology at [address] [address] Jaspreet Kinsey MD [facility] [place] [address] 10/28/2023 9:00 AM EDT Office [place] [address] 10/29/2023 10:00 AM EDT Clinical [place] [address] 10/29/2023 10:15 AM EDT Procedure [place] [address] 11/01/2023 5:00 PM EDT Office Visit [place] [address] Selene Browning, [facility] [place] [address] 11/22/2023 4:40 PM EDT Office Visit Cardiology at [address] [phone] Porsha Mcdaniels MD [facility] [place] [address] 12/13/2023 10:00 AM EDT Clinical Support [place] [phone] Lucero Romero, RD [facility] [place] [address] documented as of this encounter Visit Diagnoses Diagnosis Chronic heart failure with preserved ejection fraction Chest pain, unspecified type documented in this encounter Care Teams Automotive Product Specialist Relationship Specialty Start Date End Date Polo Pearce PA [address] [facility] 1 [place] [address] PCP - General Internal Medicine 06/09/21 documented as of this encounter
--- OUTSIDE RECORDS SUMMARY | 2023-10-20 19:59 | XMS_ITS | Encounter Summary ---
[place] [address] Care Team Providers Care Television Writer Name Role Phone Polo Pearce Primary Care Provider [phone] Encounter Details Date Type Department Care Team (Late st Contact Info) Description 12/30/2021 External [place] [address] Social History Tobacco Use Types Packs/Day Years [...] AM EDT Hospital [place] [phone] [place] [address] 10/21/2023 11:30 AM EDT App[place] [phone] Mary Reyes APRN [facility] [address] 10/21/2023 12:30 PM EDT Appointment [place] [address] [place] [address] 10/21/2023 1:30 PM EDT Appointment [place] [address] [place] [address] 10/21/2023 2:30 PM EDT Appointment [place] [address] [place] [address] 10/26/2023 4:00 PM EDT Office Visit Cardiology at [address] [phone] Jaspreet Kinsey MD [facility] [place] [address] 10/28/2023 9:00 AM EDT Office [place] [address] 10/29/2023 10:00 AM EDT Clinical Support [place] [address] 10/29/2023 10:15 AM EDT Procedure [place] [address] 11/01/2023 5:00 PM EDT Office [place] [address] Selene Browning, PhD [facility] [place] [address] 11/22/2023 4:40 PM EDT Office Visit Cardiology at [address] [phone] Porsha Mcdaniels MD [facility] [place] [address] 12/13/2023 10:00 AM EDT Clinical [place] [address] Lucero Romero, RD [facility] [place] [address] documented as of this encounter Procedures Procedure Name Priority Date/Time Associated Diagnosis Comments ECG SCAN Routine 12/30/2021 documented in this encounter Results * Scan Doc: ECG (12/30/2021) Historical Provider MD FLEMING MGR SCAN EX T ORDR/RSLT documented in this encounter Visit Diagnoses Not on filedocumented in this encounter Care Teams Television Writer Relationship Specialty Start Date End Date Polo Pearce PA [address] [place] [address] PCP - General Internal Medicine 06/09/21 documented as of this encounter
--- OUTSIDE RECORDS SUMMARY | 2023-10-20 19:59 | XMS_ITS | Encounter Summary ---
Author Organization [facility] [place] [address] Care Team Providers Care Roof Cement And Paint Maker Name Role Phone Polo Pearce Primary Care Provider [phone] Encounter Details Date Type Department Care Team (Late st Contact Info) Description 12/31/2021 Orders Only Cardiology at [address] [phone] Umberto Joy PA [facility] [place] [address] SVT (supraventricular tachycardia) Social History Tobacco Use [...] AM EDT Hospital Encounter [place] [phone] Mary Reyes APRN [facility] [place] [address] 10/21/2023 11:30 AM EDT Appointment [place] [address] Mary Reyes [facility] [place] [address] 10/21/2023 12:30 PM EDT Appointment [place] [address] [place] [address] 10/21/2023 1:30 PM EDT Appointment [place] [address] [place] [address] 10/21/2023 2:30 PM EDT Appointment [place] [address] [place] [address] 10/26/2023 4:00 PM EDT Office Visit Cardiology at [address] [phone] Jaspreet Kinsey MD [facility] [place] [address] 10/28/2023 9:00 AM EDT Office [place] [address] 10/29/2023 10:00 AM EDT Clinical [place] [address] 10/29/2023 10:15 AM EDT Procedure [place] [address] 11/01/2023 5:00 PM EDT Office [place] [address] Selene Browning, PhD [facility] [address] 11/22/2023 4:40 PM EDT Office Visit Cardiology at [place] [phone] Porsha Mcdaniels MD [facility] [place] [address] 12/13/2023 10:00 AM EDT Clinical Support [place] [address] [facility] [place] [address] documented as of this encounter Procedures Procedure Name Priority Date/Time Associated Diagnosis Comments ECHOCARDIOGRAM TRANSTHORACIC Routine 12/30/2021 11:29 PM EDT documented in this encounter Results * Echocardiogram Transthoracic (12/30/2021 11:29 PM EDT) Anatomical Region Laterality Modality Cardiac Other 12/30/2021 11:2 9 PM EDT Narrative 01/05/2022 4:39 AM EDT ? Echocardiogram Report Name: LOIDA ROQUE ?Study Date: 12/30/2021 11:29 PM : 1970 Age: 51 yrs Gender: Female Interpreting Fellow: Ciro Lovell. Interpretation Summary Limited echocardiogram performed by color consultant fellow. 1. LV appears globally hypokinetic. Visually estimated LVEF 40%. 2. RV is not well visualized, but appears mildly reduced in global systolic function. Recommend comprehensive echo. Procedure Note Willy Gómez MD - 01/05/2022 Echocardiogram Report Name: LOIDA ROQUE Study Date: 12/30/2021 11:29PM : 1970 Age: 51 yrs Gender: Female Interpreting Fellow: Ciro Lovell. Interpretation Summary Limited echocardiogram performed by color consultant fellow. 1. LV appears globally hypokinetic. Visually estimated LVEF 40%. 2. RV is not well visualized, but appears mildly reduced in globalsystolic function. Recommend comprehensive echo. Unknown ECHO ORDERABLES documented in this encounter Visit Diagnoses Diagnosis SVT (supraventricular tachycardia) Other specified cardiac dysrhythmias documented in this encounter Care Teams Roof Cement And Paint Maker Relationship Specialty Start Date End Date Polo Pearce PA [address] [place] [address] PCP - General Internal Medicine 06/09/21 documented as of this encounter
--- OUTSIDE RECORDS SUMMARY | 2023-10-20 19:59 | XMS_ITS | Encounter Summary ---
Author Organization [facility] [place] [address] Care Team Providers Care Bridge Game Director Name Role Phone Polo Pearce Primary Care Provider [phone] Encounter Details Date Type Department Care Team (Late st Contact Info) Description 03/10/2022 Telephone Cardiology at [address] [phone] Maegan Mike APRN [facility] [place] [address] Social History Tobacco Use Types Packs/Day Years [...] Referring Provider: Otis Rubi APRN Patient Location: [facility] ED Past Medical History: Type II non-STEMI in October 2021, cardiac cath with normal coronary arteries in October 2019 AVNRT, 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 She has [...] the patient condition. Maegan Mike APRN Pager [phone] 03/10/2022 documented in this encounter Plan of Treatment Upcoming Encounters Date Type Department Care Team (Late st Contact Info) Description 10/21/2023 10:30 AM EDT Hospital Encounter [place] [phone] Mary Reyes YOGA COORDINATOR [place] [address] 10/21/2023 11:30 AM EDT Appointment [place] [address] Mary Reyes YOGA COORDINATOR [place] [address] 10/21/2023 12:30 PM EDT Appointment [place] [phone] Mary Reyes YOGA COORDINATOR [place] [address] 10/21/2023 1:30 PM EDT Appointment [place] [phone] Mary Reyes YOGA COORDINATOR [place] [address] 10/21/2023 2:30 PM EDT Appointment Nuclear Medicine at [place] [phone] Mary Reyes APRN [place] [address] 10/26/2023 4:00 PM EDT Office Visit Cardiology at [address] [phone] Jaspreet Kinsey MD [facility] [place] [address] 10/28/2023 9:00 AM EDT Office [place] [address] 10/29/2023 10:00 AM EDT Clinical Support [place] [address] 10/29/2023 10:15 AM EDT Procedure visit [place] [address] 11/01/2023 5:00 PM EDT Office Visit Gastroenterology at [place] [phone] Selene Browning, PhD [facility] [place] [address] 11/22/2023 4:40 PM EDT Office Visit Cardiology at [address] [phone] Porsha Mcdaniels MD [facility] [place] [address] 12/13/2023 10:00 AM EDT Clinical [place] [address] Lucero Romero, AL[place] [facility] [place] [address] documented as of this encounter Visit Diagnoses Not on filedocumented in this encounter Care Teams Bridge Game Director Relationship Specialty Start Date End Date Polo Pearce PA [address] [place] [address] PCP - General Internal Medicine 06/09/21 documented as of this encounter
--- OUTSIDE RECORDS SUMMARY | 2023-10-20 19:59 | XMS_ITS | Encounter Summary ---
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 Sandy Serna MD [facility] GENER[facility] [place] [address] [facility] Cardiology [address] [place] [phone] Referral ID Status Reason Start Date Expiration Date V isits Requested Visits Authorized [id number] Closed Consult, Test & Treat 06/14/2021 06/14/2022 1 1 Encounter Details Date Type Department Care Team (Late st Contact Info) Description 08/19/2021 3:00 PM EDT Office Visit Cardiology at [address] [phone] Umberto Joy PA [facility] [place] [address] AVNRT (AV makayla re-entry tachycardia) [...] EKGs(ST T-wave abnormalities) but clean cors at [facility] in 2019 and essentially normal echocardiogram(LVEF [...] anticipated in the future. She lives in [place], [place] and has seen Dr. Kinsey in [place]. Patient Active Problem List Diagnosis ??? 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 Obesity ??? Dyslipidemia ??? MARYLOU on CPAP ??? Restless leg syndrome ??? Insomnia ??? 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 ??? fluticasone propionate (FLONASE) 50 mcg/actuation [place], Suspension 1 spray by Each Nare route [...] 12 lead EK08/19/2021 Sinus bradycardia @ 57; MS 176; QRS 84; QTc 443ms Zio: 06/09/2021 [...] atrial premature beat conducted with a prolonged MS interval, strongly suggestive of atrioventricular makayla reentrant [...] No significant change from prior in 08/2019. [facility]: 08/2019 Clean coronaries Assessment and Plan [...] history and diagnostic findings with emphasis on air sampling and monitoring data. We also discussed risk/benefit of EPS/ablation [...] AM EDT Hospital En[place] [address] Mary Reyes [facility] [address] 10/21/2023 11:30 AM EDT Appointment Nuclear Medicine at [place] [phone] Mary Reyes [facility] [address] 10/21/2023 12:30 PM EDT Appointment Nuclear Medicine at [place] [phone] Mary Reyes [facility] [address] 10/21/2023 1:30 PM EDT Appointment [place] [address] Mary Reyes [facility] [place] [address] 10/21/2023 2:30 PM EDT Appointment [place] [address] Mary Reyes [facility] [place] [address] 10/26/2023 4:00 PM EDT Office Visit Cardiology at [address] [phone] Jaspreet Kinsey MD [facility] [place] [address] 10/28/2023 9:00 AM EDT Office [place] [address] 10/29/2023 10:00 AM EDT Clinical [place] [address] 10/29/2023 10:15 AM EDT Procedure [place] [address] 11/01/2023 5:00 PM EDT Office [place] [address] Selene Browning, PhD [facility] [place] [address] 11/22/2023 4:40 PM EDT Office Visit Cardiology at [address] [phone] Porsha Mcdaniels MD [facility] [place] [address] 12/13/2023 10:00 AM EDT Clinical [place] [phone] Lucero Romero, [place] [facility] [place] [address] documented as of this encounter Procedures Procedure [...] (Bezet) 443 ms MUSE SYSTEM Calculated P [place] 49 degrees MUSE SYSTEM Calculated R [place] 63 degrees MUSE SYSTEM Calculated T [place] -60 degrees MUSE SYSTEM INTERPRETATION Sinus bradycardia [...] dysrhythmias documented in this encounter Care Teams Under Presser Relationship Specialty Start Date End Date Polo Pearce PA [address] [place] [address] PCP - General Internal Medicine 06/09/21 documented as of this encounter
--- OUTSIDE RECORDS SUMMARY | 2023-10-20 20:00 | XMS_ITS | Encounter Summary ---
[place] [address] Care Team Providers Care Case Manager Name Role Phone Polo Pearce Primary Care Provider [phone] Reason for Visit * Auth/Cert Specialty Diagnoses / Procedures Referred By Jayant harris Referred To Contact Diagnoses NSTEMI (non-ST elevated myocardial infarction) NSTEMI Procedures EMERGENCY OBSVO Referral ID Status Reason Start Date Expiration Date Visits Re quested Visits Authorized [id number] 1 1 Encounter Details Date Type Department Care Team (Late st Contact Info) Description 06/09/2021 8:15 AM EDT - 06/09/2021 9:15 AM EDT Surgery Radiation [place] [phone] Aaron Ash MD [facility] [place] [address] CARDIAC CATHETERIZATION Social History Tobacco Use Types [...] Loida Roque Patient Age: 51 y.o. Language: Moroccan Race: White Ethnicity: Not nor Admit date: [...] in a week and prn ?? Consider [place] as an out patient Inpatient Provider Contact Information: Dr. Mario Zaidi PA-C [phone] Discharge Diagnoses (Hospital Problems) and Secondary Diagnoses [...] change from prior in 08/2019. ?? Procedure Complete-92316. Image enhancement Definity was used for left [...] who have questions please contact the health customer care manager that requested your imaging first. CXR 06/08/2021 [...] Hospital Course: On admission to [facility], the patient had no complaints of chest pain or shortness of breath at rest.Telemetry was attached which showed normal sinus rhythm. Heparin drip was infusing. [facility] records/transfer records were reviewed. Baseline labs were checked and/or drawn. Chest Pain, OK ruled out, Echo showed preserved LVEF Given the patient's risk factors, chronic non-specific ST-T changes on ECG, and here at [facility] normaltroponin as well as reproducible chest tenderness [...] significant weight, however during her stay at [facility] now she lost only 0.9 kg, to [...] needed Follow up Appointments: PCP Tim Rogers, [employer] [phone] to see you in a week (patient to set this up) Mel placed on 06/09/2021 Cardiology to see in a month and prn. Dr. Kinsey to see the patient in [place] on July 23 at 920 am. Please call [phone] with questions. Home oxygen therapy: N/A Arrangements for VNA/home care: none Future Appointments and Orders Future Appointments and Orders Future Appointments Provider Department Dept Phone 07/23/2021 8:20 AM Jaspreet Kinsey MD Cardiology at [place] Arrive at: [facility] [address] [phone] Future Orders Complete By Expires Ziopatch 48 Hrs-15 Days [MPG5421 CPT(R)] 06/09/2021 12/09/2021 Process Instructions: Scheduling Instructions: Questions: Does the patient have a pacemaker? If yes provide HI/LO settings: Apply for 7 or 14 days?: 14 Where will study be performed?: [facility] Clinics Basic Metabolic Panel (non-fasting) [LAB15 Custom] 06/16/2021 (Approximate) 06/09/2022 Process Instructions: INCLUDES: Calcium, BUN, Creat, GFR, Glucose, Lytes Scheduling Instructions: Comments: Questions: Discharge References/Attachments None documented in this encounter Discharge Instructions * Discharge Instructions* Deja Zaidi PA - 06/08/2021 1:56 PM EDT Return to work: One week Driving: as needed Follow up Appointments: PCP Tim Rogers, [employer] [phone] to see you in a week (patient to set this up) Ziopatch placed on 06/09/2021 Cardiology to see in a month and prn. Dr. Kinsey to see the patient in [place] on July 23 at 920 am. Please call [phone] with questions. Home oxygen therapy: N/A Arrangements for VNA/home care: none documented in this encounter Medications at Time of Discharge Medication Sig Dispensed Refills Start Date End Date rOPINIRole (Requip) 1 mg Tablet Take 2 mg by mouth 2 times daily. 07/16/2020 loratadine (Claritin) 10 mg Tablet Take 10 mg by mouth daily as needed. fluticasone propionate (FLONASE) 50 mcg/actuation [place], Suspension 1 spray by Each Nare [...] Nutrition Plan: Pt seen for Na2gm diet. Approver informed pt of current diet orders and their restrictions. Pt expressed understanding and informed this teletypewriter installer that she tries to limit salt use at home. Approver and pt discussed common sources of sodium (pre-prepared foods) and alternatives (fresh/frozen veggies). Provided educational material and encouraged pt to reach out with any questions or concerns. Will continue to monitor and follow up. Continue current diet. Monitor weight. Encourage good oral intake. Support and encouragement provided. Discussed case with Clinical Dietitian Active Orders Diet Daily Healthy Menu Choices/Cardiac diet ([facility]-Diet) 2 GM NA Frequency: Effective Now Number [...] nausea and no vomiting Last Bowel Movement: (PRESSURE SUPERVISOR) Patient education / questions: provided diet order education and patient with good understanding, written education and contact information provided and all nutrition related questions answered at this time Nutrition services to follow weekly through hospital course unless consulted in the interim. Rocio Rosenthal Pager: [phone] * Deja Zaidi PA - 06/09/2021 9:14 AM EDT Inpatient Cardiology Discharge Day Note Patient Name: Loida Roque Service: OPERATIONS LABEL CLERK / PA Responsible Attending: Mario Hallman MD [...] (from the past 24 hour(s)) urine, qualitative ([place]/[facility]/P/NL) Result Value Ref Range Spec Moore UA 1.010 1.006 - 1.030 HCG Qual [...] seen on recent CT scan presents to [facility] from [facility] with a [...] with Dr. Hallman. ?? JOCY Hernandez Pager [phone] JOCY MCKOY 06/09/2021 Associated attestation - Mario Hallman MD - 06/09/2021 9:37 PM EDT Cardiology Attending Addendum I shared this visit with JOCY Zadii and guided the medical decision- making. I explained to patient the findings of echo, R heart catheterization and our diagnostic impression and medications (furosemide and empagliflozin) and possible adverse events. More than 30 minutes were spent in [id number] contact with patient and with arranging discharge [...] Jaspreet Pardo - 06/08/2021 8:34 PM EDT Lay Up Operator Encounter Note Patient Name: Loida Roque : [id number] MR#: [id number] Admit Date: 06/07/2021 3:49 PM Hospital Day 0 days Narrative: Initial rounding visit to introduce lay out helper services and to assess patient interest. Patient [...] Day Note Patient Name: Loida Roque Service: OPERATIONS LABEL CLERK / PA Responsible Attending: Mario Hallman MD [...] ??? heparin (porcine) infusion 1,100 Units/hr (06/08/21 0766) PRN Meds:hydrOXYzine, heparin (porcine) infusion AND heparin [...] PCR Not Detected Not Detected SARS-CoV-2 Source OPERATIONS LABEL CLERK Swab Troponin Result Value Ref Range Troponin-T [...] seen on recent CT scan presents to [facility] from [facility] with a [...] with Dr. Hallman. ?? 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 ??? fluticasone propionate (FLONASE) 50 mcg/actuation [place], Suspension 1 spray by Each Nare [...] seen on recent CT scan presents to [facility] from [facility] with a NSTEMI. She has an elevated trop, BNP and lateral EKG changes. Patient is now awaiting an Echo and cardiac cath. Neurology consult called in to determine if she needs imaging prior to her Echo and cath given garbled speech a week ago. Stable at this time. TREATMENT PLAN: NSTEMI Admit to [facility] for telemetry monitoring Serial enzymes [...] JOCY Hernandez 06/07/2021 Provider: JOCY MCKOY Pager [phone] 06/07/2021 Associated attestation - Mario Hallman MD [...] COVID test: Lab Results Component Value Date [id number] Not Detected 06/07/2021 Present on Admission: ??? NSTEMI (non-ST elevated myocardial infarction) ??? Asthma ??? MARYLOU on CPAP ??? Insomnia ??? Chronic heart failure with preserved ejection fraction Hospitalizations Within the Past 30 Days: no previous admission in last 30 days Patient receiving hospital care under Observation status. Admission order reviewed. Primary Insurance on file: [facility] Secondary Insurance on file:@ Primary care provider on file: Tim Rogers APRN [phone] Pharmacy: [id number] - [place], [place] - [address] [facility] [address] [place] [address] Advance Care Planning: Attempt Cardiopulmonary Resuscitation - Inpatient <no information> -Advanced Directive: No, declines (Boby (spouse) SDM) Current Functional Ability: Independent Functional Status Prior to Admission: Independent Home Environment: Others in the home: spouse. Current Living Arrangements: home/apartment/condo. Accessibility Concerns: . Current DME: none [address] [place] [address] Social & Family Supports: All names listed [...] private vehicle when medically ready. Registered Nurse Creamery Worker / Ell Tutor will continue to follow patient???s progress and [...] Daily. ??? 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 Consider PATTERN SHOP SUPERVISOR consult for full evaluation and diet recommendations. [...] for further details. JOCY MCKOY 06/07/2021 Pager [phone] documented in this encounter Plan of Treatment Upcoming Encounters Date Type Department Care Team (Late st Contact Info) Description 10/21/2023 10:30 AM EDT Hospital Encounter [place] [address] [place] [address] 10/21/2023 11:30 AM EDT Appointment [place] [address] [place] [address] 10/21/2023 12:30 PM EDT Appointment [place] [address] [place] [address] 10/21/2023 1:30 PM EDT Appointment [place] [address] [place] [address] 10/21/2023 2:30 PM EDT Appointment [place] [address] Mary Reyes [facility] [place] [address] 10/26/2023 4:00 PM EDT Office Visit Cardiology at [address] [address] Jaspreet Kinsey MD [facility] [place] [address] 10/28/2023 9:00 AM EDT Office [place] [address] 10/29/2023 10:00 AM EDT Clinical Support [place] [address] 10/29/2023 10:15 AM EDT Procedure visit [place] [address] 11/01/2023 5:00 PM EDT Office Visit [place] [address] Selene Browning, PhD [facility] [place] [address] 11/22/2023 4:40 PM EDT Office Visit Cardiology at [address] [address] Porsha Mcdaniels MD [facility] [place] [address] 12/13/2023 10:00 AM EDT Clinical Support [place] [address] [facility] [place] [address] documented as of this encounter Procedures Procedure [...] Modality Other Narrative 07/01/2021 9:29 AM EDT [facility] ? Zio Patch? Ambulatory Cardiac Event [...] atrial premature beat conducted with a prolonged KY interval, strongly suggestive of atrioventricular makayla reentrant [...] as described ?? Kurt Larose MD, PhD, [facility] Cardiac Electrophysiology Mario Hallman MD CARDIAC SERVICES ORD ERABLES * CARDIAC CATHETERIZATION (06/09/2021 9:05 AM EDT) Anatomical Region Laterality Modality Other Narrative 06/09/2021 9:09 AM EDT ?[facility] ? Cardiac Catheterization/Intervention Report ? Patient Name: Neisha, Loida ? Procedure Date: 06/09/2021 ? A #: [id number] ? Primary Physician: Nilsa, Aaron E ? Case #: [id number] ? File Name: [id number] ? Catheterization Order Number: [id number] ? [facility] ? Final Report [place], [place] ? Patient Name: ? Loida Neisha ? ID#: ?[id number] ? : ?1970 ? Procedure Date: ? [...] was ?designated as ASA Class III. The CS clinical frailty scale is 2: Well. ? [...] procedure was Urgent. The indication for ?the photo lab manager visit is other indication. Chest pain symptom [...] Procedure Note Aaron Ash MD - 06/23/2021 [facility] Cardiac Catheterization/Intervention Report Patient Name: Loida Roque Procedure Date: 06/09/2021 A #: [id number] Primary Physician: Aaron Ash Case #: [id number] File Name: [id number] Catheterization Order Number: [id number] [facility] FinalReport [place], [place] Patient Name: Loida Roque ID#:[id number] :1970 Procedure Date: June 09, 2021 Case [...] patientwas designated as ASA Class III. The [facility] clinical frailty scale is 2:Well. Diagnostic Tests: [...] diagnostic procedure was Urgent. The indicationfor the photo lab manager visit is other indication. Chest pain symptomassessment [...] pro-Brain Natriuretic Peptide (06/09/2021 3:37 AM EDT) [facility] NT-proBNP 911(H) <=124 pg/mL [facility] Blood Venous Draw / Unknown 06/09/2021 3:37 AM EDT 06/09/2021 3:59 AM EDT Narrative Resulting Agency Comment Spec In Lab Deja SANDRA CHEMISTRY ORDERABLES [facility] [place] [address] * Differential, Automated (06/09/2021 3:37 AM EDT) [facility] Neutrophil % 64.9 % [facility] Neutrophil Absolute 5.12 1.70 - 6.10 x10(3)/[facility] LABORATORY Lymph % 21.9 % [facility] Lymphocytes Abs 1.7 0.9 - 3.2 x10(3)/[facility] LABORATORY Monocyte % 8.6 % [facility] Monocyte Abs 0.7 0.3 - 0.9 x10(3)/[facility] LABORATORY Eos % 3.4 % [facility] Eosinophils Abs 0.3 0.0 - 0.4 x10(3)/[facility] LABORATORY Basophil % 0.8 % [facility] Baso Absolute 0.1 0.0 - 0.1 x10(3)/[facility] [...] Immature Gran Absolute 0.03 0.00 - 0.04 x10(3)/[facility] LABORATORY Blood 06/09/2021 3:37 AM EDT 06/09/2021 3:58 AM EDT Narrative Resulting Agency Comment Spec In Lab Deja SANDRA HEMATOLOGY ORDERABLE S [facility] [place] [address] * (ABNORMAL) Hemogram (06/09/2021 3:37 AM EDT) White Blood Cell 7.9 4.0 - 9.5 x10(3)/ L [facility] Red Blood Cell 4.88 4.00 - 5.21 x10(6)/[facility] LABORATORY Hemoglobin 15.2 11.7 - 15.5 g/dL [facility] Hematocrit 46.5(H) 35.7 - 45.8 % [facility] Mean Cell Volume 95.3(H) 82.6 - 94.4 fL [facility] Mean Cell Hemoglobin 31.1 27.1 - 32.0 pg [facility] Mean Cell Hemoglobin Concentration 32.7 31.7 - 35.0 g/dL [facility] Platelet 334 145 - 357 x10(3)/mc L [facility] RDW Standard Deviation 49.2(H) 37.0 - 46.0 fL [facility] RDW coefficient of variation 14.5(H) 11.5 - 14.1 % [facility] Mean Platelet Volume 10.2 7.6 - 12.9 fL [facility] NRBC% auto 0.0 % [facility] NRBC Absolute 0.000 0.000 - 0.000 x10(3)/mc L [facility] Blood 06/09/2021 3:37 AM EDT 06/09/2021 3:58 AM EDT Narrative Resulting Agency Comment Spec In Lab Deja SANDRA HEMATOLOGY ORDERABLE S [facility] [place] [address] * (ABNORMAL) BMP w/fasting Glucose (06/09/2021 3:37 AM EDT) Glucose Fasting 103(H) 65 - 99 mg/dL [facility] [...] of Diabetes Mellitus, Position Statement from the [place] Diabetes Association. ??Diabetes Care, Volume 33, Supplement 1, Mar 2009 Blood Urea Nitrogen 23(H) 8 - 18 mg/dL [facility] Creatinine 0.86 0.70 - 1.20 mg/dL [facility] [...] - 107 mmol/L [facility] Carbon Dioxide 22 22 - 31 mmol/L [facility] Anion Gap 13 5 - 15 mmol/L [facility] Calcium 9.3 8.5 - 10.5 mg/dL [facility] Est Glomerular Filtration Rate 78 >=60 mL/min/1. 73 m?? [facility] Comment: This patient? s [...] In Lab Mario Hallman MD CHEMISTRY ORDERABLES [facility] [place] [address] * Heparin (unfractionated) Level (06/08/2021 4:07 PM EDT) UF Heparin <0.04 IU/mL [facility] Comment: [...] Lab Mario Hallman MD HEMATOLOGY ORDERABLE S [facility] [place] [address] * XR Chest PA & Lateral (Generic) [...] who have questions please contact the health customer care manager that requested your imaging first. [...] patients who have questions please contactthe health customer care manager that requested your imaging first. Mario Hallman MD IMG DX ORDERABLES * [...] who have questions please contact the health customer care manager that requested your imaging first. [...] patients who have questions please contactthe health customer care manager that requested your imaging first. Electronically signed by: Kiran Cantor MDNCH Healthcare [facility]([phone]), at 06/08/2021 2:35 PM Mario Hallman MD IMG MRI ORDERABLES * (ABNORMAL) CRP, acute inflammation (06/08/2021 11:58 AM EDT) C-Reactive Protein 28.1(H) <=4.9 mg/L [facility] Blood 06/08/2021 11:5 8 AM EDT 06/08/2021 12:04 PM EDT Narrative Resulting Agency Comment Spec In Lab Mario Hallman MD CHEMISTRY ORDERABLES Performing Organization Address City/[facility]/ZIP Co de Phone Number [facility] [place] [address] * CK (06/08/2021 11:58 AM EDT) Creatine Kinase 30 0 - 160 unit/L [facility] Blood 06/08/2021 11:5 8 AM EDT 06/08/2021 12:04 PM EDT Narrative Resulting Agency Comment Spec In Lab Mario Hallman MD CHEMISTRY ORDERABLES Performing Organization Address [facility] Co de Phone Number [facility] [place] [address] * (ABNORMAL) Sedimentation rate (06/08/2021 11:58 AM EDT) Sedimentation Rate Automated 53(H) 2 - 39 mm/hr [facility] Comment: Effective February 15, 2019 new capillary photometric technology has resulted in a change in reference ranges. It is recommended that each ESR result be reviewed with its own age appropriate reference range. Blood 06/08/2021 11:5 8 AM EDT 06/08/2021 12:04 PM EDT Narrative Resulting Agency Comment Spec In Lab Mario Hallman MD HEMATOLOGY ORDERABLE S Performing Organization Address City/[facility]/ZIP Co de Phone Number [facility] [place] [address] * Heparin (unfractionated) Level (06/08/2021 11:58 AM EDT) UF Heparin 0.77 IU/mL [facility] Comment: [...] Lab Mario Hallman MD HEMATOLOGY ORDERABLE S [facility] [place] [address] * urine, qualitative ([place]/[facility]/P/NL) (06/08/2021 11:51 AM EDT) Specific Moore Urine Automated 1.010 1.006 - 1.030 [facility] Human Chorionic Gonadotropin Qualitative, Urine Negative [facility] Comment: Dilute urine samples can result in a false negative test. Repeat testing on a first morning sample or a plasma quantitative hCG measurement is recommended. Urine 06/08/2021 11:5 1 AM EDT 06/08/2021 12:32 PM EDT Narrative Resulting Agency Comment Spec In Lab Mario Hallman MD URINE ORDERABLES [facility] [place] [address] * ECHO COMPLETE W CONTRAST (06/08/2021 11:09 AM EDT) Anatomical Region Laterality Modality Other 06/08/2021 9:35 AM EDT Narrative 06/08/2021 12:42 PM EDT ?[facility] ?[address] ? [place] [address] ?Voice: ?Fax: ? Echocardiogram Report Name: NEISHA, LOIDA ? Study Date: 06/08/2021 09:35 AMBP: 109/69 mmHg ? [facility] 1970 ? Height: 163 cm ? Account: [id number] Age: 51 yrs ? Weight: 95 kg Gender: Female ?BSA: 2.0 m2 Ordering Physician: DONALD Referring Physician: AJ HARTMAN Performed By: Aaron Herr RDCS Reason For Study: NSTEMI (non-ST elevated myocardial infarction) Exam Location: [facility]. Interpretation Summary 1. Left ventricle is [...] significant change from prior in 08/2019. Procedure Complete-09981. Image enhancement Definity was used for left [...] Procedure Note Kai Haider MD - 06/08/2021 [place] [address] Voice: Fax: Echocardiogram Report Name: LOIDA ROQUE Study Date: 209:35 AMBP: 109/69 mmHg Patient Location:[place] [address]^A : 1970 Height: 163 cm Account: [id number] Age: 51 yrs Weight: 95 kg Gender: Female BSA: 2.0 m2 Ordering Physician: DONALD Referring Physician: AJ HARTMAN Performed By: Aaron Herr RDCS Reason For Study: NSTEMI (non-ST elevated myocardial infarction) Exam Location: [facility]. Interpretation Summary 1. Left ventricle is [...] significant change from prior in 08/2019. Procedure Complete-36751. Image enhancement Definity was used for left [...] Heparin (unfractionated) Level (06/08/2021 5:54 AM EDT) Pathologist [facility] UF Heparin 1.20(Crit ical) IU/mL [facility] Comment: [...] Resulting Agency Comment Spec In Lab Edie Csotello MD HEMATOLOGY ORDERABLE S [facility] [place] [address] * (ABNORMAL) Differential, Automated (06/08/2021 4:41 AM EDT) Neutrophil % 71.8 % [facility] Neutrophil Absolute 8.09(H) 1.70 - 6.10 x10(3)/mc L [facility] Lymph % 18.0 % [facility] Lymphocytes Abs 2.0 0.9 - 3.2 x10(3)/[facility] LABORATORY Monocyte % 5.7 % [facility] Monocyte Abs 0.6 0.3 - 0.9 x10(3)/[facility] LABORATORY Eos % 3.5 % [facility] Eosinophils Abs 0.4 0.0 - 0.4 x10(3)/[facility] LABORATORY Basophil % 0.6 % [facility] Baso Absolute 0.1 0.0 - 0.1 x10(3)/[facility] LABORATORY Immature Gran % 0.40 % [facility] Comment: Immature granulocytes(IG's)percentage and absolute count will include metamyelocytes, myelocytes, and promyelocytes. Blood smears from CBCs yielding IG's will be scanned manually for concordance. If this scan disagrees with the automated IG or if promyelocytes are noted, a manual differential will be performed. Immature Gran Absolute 0.05(H) 0.00 - 0.04 x10(3)/[facility] LABORATORY Blood 06/08/2021 4:41 AM EDT 06/08/2021 5:11 AM EDT Narrative Resulting Agency Comment Spec In Lab Deja SANDRA HEMATOLOGY ORDERABLE S [facility] [place] [address] * (ABNORMAL) Hemogram (06/08/2021 4:41 AM EDT) White Blood Cell 11.3(H) 4.0 - 9.5 x10(3)/[facility] LABORATORY Red Blood Cell 4.64 4.00 - 5.21 x10(6)/[facility] LABORATORY Hemoglobin 13.9 11.7 - 15.5 g/dL [facility] Hematocrit 43.0 35.7 - 45.8 % [facility] Mean Cell Volume 92.7 82.6 - 94.4 fL [facility] Mean Cell Hemoglobin 30.0 27.1 - 32.0 pg [facility] Mean Cell Hemoglobin Concentration 32.3 31.7 - 35.0 g/dL [facility] Platelet 312 145 - 357 x10(3)/mc L [facility] RDW Standard Deviation 47.4(H) 37.0 - 46.0 fL [facility] RDW coefficient of variation 14.3(H) 11.5 - 14.1 % [facility] Mean Platelet Volume 10.8 7.6 - 12.9 fL [facility] NRBC% auto 0.0 % [facility] NRBC Absolute 0.000 0.000 - 0.000 x10(3)/mc L [facility] Blood 06/08/2021 4:41 AM EDT 06/08/2021 5:11 AM EDT Narrative Resulting Agency Comment Spec In Lab Deja SANDRA HEMATOLOGY ORDERABLE S [facility] [place] [address] * (ABNORMAL) Heparin (unfractionated) Level (06/08/2021 4:41 AM EDT) UF Heparin 1.06(Crit ical) IU/mL [facility] Comment: [...] Lab Mario Hallman MD HEMATOLOGY ORDERABLE S [facility] [place] [address] * (ABNORMAL) BMP w/fasting Glucose (06/08/2021 4:41 AM EDT) Glucose Fasting 95 65 - 99 mg/dL [facility] [...] of Diabetes Mellitus, Position Statement from the [place] [employer]. ??Diabetes Care, Volume 33, Supplement 1, Mar 2009 Blood Urea Nitrogen 21(H) 8 - 18 mg/dL [facility] Creatinine 0.87 0.70 - 1.20 mg/dL [facility] [...] - 107 mmol/L [facility] Carbon Dioxide 22 22 - 31 mmol/L [facility] Anion Gap 13 5 - 15 mmol/L [facility] Calcium 8.7 8.5 - 10.5 mg/dL [facility] Est Glomerular Filtration Rate 77 >=60 mL/min/1. 73 m?? [facility] Comment: This patient? s [...] In Lab Mario Hallman MD CHEMISTRY ORDERABLES [facility] [place] [address] * Troponin (06/08/2021 4:41 AM EDT) Troponin-T [...] ischemia ?? New or presumed new significant AX-rbxvuaj-N wave (ST-T) changes or new left bundle [...] additional sample may be indicated. Reference: Third [place] Definition of Myocardial Infarction. Journal of the [place] College [employer]iology 2012;60:1581-98 Blood 06/08/2021 4:41 AM EDT 06/08/2021 5:12 AM EDT Narrative Resulting Agency Comment Spec In Lab Mario Hallman MD CHEMISTRY ORDERABLES Performing Organization Address [facility]/ZIP Co de Phone Number [facility] [place] [address] * Heparin (unfractionated) Level (06/07/2021 9:55 PM EDT) UF Heparin 0.08 IU/mL [facility] Comment: [...] MD HEMATOLOGY ORDERABLE S Performing Organization Address City/[facility]/ZIP Co de Phone Number [facility] [place] [address] * (ABNORMAL) pro-Brain Natriuretic Peptide (06/07/2021 5:26 PM EDT) Pathologist [facility] NT-proBNP 2,701(H) <=124 pg/mL [facility] Blood Venous Draw / Unknown 06/07/2021 5:26 PM EDT 06/07/2021 5:44 PM EDT Narrative Resulting Agency Comment Spec In Lab Deja SANDRA CHEMISTRY ORDERABLES [facility] [place] [address] * (ABNORMAL) Differential, Automated (06/07/2021 5:26 PM EDT) [facility] Neutrophil % 74.6 % [facility] Neutrophil Absolute 8.97(H) 1.70 - 6.10 x10(3)/mc L [facility] Lymph % 15.9 % [facility] Lymphocytes Abs 1.9 0.9 - 3.2 x10(3)/mc L [facility] Monocyte % 6.0 % [facility] Monocyte Abs 0.7 0.3 - 0.9 x10(3)/mc L [facility] Eos % 2.6 % [facility] Eosinophils Abs 0.3 0.0 - 0.4 x10(3)/mc L [facility] Basophil % 0.5 % [facility] Baso Absolute 0.1 0.0 - 0.1 x10(3)/mc L [facility] [...] differential will be performed. Immature Gran Absolute 0.05(H) 0.00 - 0.04 x10(3)/mc L [facility] Blood 06/07/2021 5:26 PM EDT 06/07/2021 5:36 PM EDT Narrative Resulting Agency Comment Spec In Lab Deja SANDRA HEMATOLOGY ORDERABLE S [facility] [place] [address] * (ABNORMAL) Hemogram (06/07/2021 5:26 PM EDT) White Blood Cell 12.0(H) 4.0 - 9.5 x10(3)/[facility] Red Blood Cell 4.72 4.00 - 5.21 x10(6)/[facility] Hemoglobin 14.5 11.7 - 15.5 g/dL [facility] Hematocrit 44.0 35.7 - 45.8 % [facility] Mean Cell Volume 93.2 82.6 - 94.4 fL [facility] Mean Cell Hemoglobin 30.7 27.1 - 32.0 pg [facility] Mean Cell Hemoglobin Concentration 33.0 31.7 - 35.0 g/dL [facility] Platelet 346 145 - 357 x10(3)/[facility] RDW Standard Deviation 47.2(H) 37.0 - 46.0 fL [facility] RDW coefficient of variation 14.4(H) 11.5 - 14.1 % [facility] Mean Platelet Volume 10.6 7.6 - 12.9 fL [facility] NRBC% auto 0.0 % [facility] NRBC Absolute 0.000 0.000 - 0.000 x10(3)/ L [facility] Blood 06/07/2021 5:26 PM EDT 06/07/2021 5:36 PM EDT Narrative Resulting Agency Comment Spec In Lab Deja SANDRA HEMATOLOGY ORDERABLE S [facility] [place] [address] * BMP w/fasting Glucose (06/07/2021 5:26 PM EDT) Glucose Fasting 90 65 - 99 mg/dL [facility] [...] of Diabetes Mellitus, Position Statement from the [place] Diabetes Association. ??Diabetes Care, Volume 33, Supplement 1, Mar 2009 Blood Urea Nitrogen 18 8 - 18 mg/dL [facility] [...] - 107 mmol/L [facility] Carbon Dioxide 24 22 - 31 mmol/L [facility] Anion Gap 12 5 - 15 mmol/L [facility] Calcium 9.1 8.5 - 10.5 mg/dL [facility] Est Glomerular Filtration Rate 60 >=60 mL/min/1. 73 m?? [facility] Comment: This patient? s [...] Hallman MD CHEMISTRY ORDERABLES Performing Organization Address City/[facility]/ZIP Co de Phone Number [facility] [place] [address] * T3 Total (06/07/2021 5:26 PM EDT) T3 Total 134 80 - 200 ng/dL [facility] Blood 06/07/2021 5:26 PM EDT 06/07/2021 5:36 PM EDT Narrative Resulting Agency Comment Spec In Lab Mario Hallman MD CHEMISTRY ORDERABLES Performing Organization Address City/[facility]/ZIP Co de Phone Number [facility] [place] [address] * T4 Total (06/07/2021 5:26 PM EDT) T4 Total 6.8 5.3 - 11.6 mcg/dL [facility] Comment: Reference Interval (mcg/dL): Females: ??First Trimester: 6.3-13.5 ??Second Trimester: 7.1-14.3 ??Third Trimester: 6.9-14.1 Blood 06/07/2021 5:26 PM EDT 06/07/2021 5:36 PM EDT Narrative Resulting Agency Comment Spec In Lab Mario Hallman MD CHEMISTRY ORDERABLES Performing Organization Address City/[facility]/ZIP Co de Phone Number [facility] [place] [address] * (ABNORMAL) TSH (06/07/2021 5:26 PM EDT) Thyroid Stimulating Hormone 5.83(H) 0.27 - 4.20 mcIU/mL [facility] Comment: Reference Interval (mcIU/mL): Females: ??First Trimester: 0.23-3.88 ??Second Trimester: 0.22-3.90 ??Third Trimester: 0.44-4.66 Blood 06/07/2021 5:26 PM EDT 06/07/2021 5:36 PM EDT Narrative Resulting Agency Comment Spec In Lab Mario Hallman MD CHEMISTRY ORDERABLES Performing Organization Address [facility] Co de Phone Number [facility] [place] [address] * Lipase (06/07/2021 5:26 PM EDT) Lipase 18 0 - 60 unit/L [facility] Blood 06/07/2021 5:26 PM EDT 06/07/2021 5:36 PM EDT Narrative Resulting Agency Comment Spec In Lab Mario Hallman MD CHEMISTRY ORDERABLES Performing Organization Address City/[facility]/ZIP Co de Phone Number [facility] [place] [address] * Amylase (06/07/2021 5:26 PM EDT) Amylase 39 28 - 100 unit/L [facility] Blood 06/07/2021 5:26 PM EDT 06/07/2021 5:36 PM EDT Narrative Resulting Agency Comment Spec In Lab Mario Hallman MD CHEMISTRY ORDERABLES Performing Organization Address City/[facility]/ZIP Co de Phone Number [facility] [place] [address] * Lipid Panel (Reflex Direct LDL) (06/07/2021 5:26 PM EDT) Cholesterol, Total 164 mg/dL [facility] Comment: Lower Risk: <200 mg/dL Average Risk: 200-239 mg/dL Higher Risk: >iu=651 mg/dL Triglyceride 144 mg/dL [facility] Comment: Average Risk/Lower Risk: <150 mg/dL Borderline High Risk: 150-199 mg/dL High Risk: 200-499 mg/dL Very High Risk: >hi=265 mg/dL HDL Cholesterol 44 mg/dL [facility] Comment: Males: ?? Higher Risk: <40 mg/dL Females: ?? Higher Risk: <50 mg/dL LDL Cholesterol 91 mg/dL [facility] Comment: Lowest Risk: <100 mg/dL Lower Risk: 100-129 mg/dL Borderline High Risk: 130-159 mg/dL High Risk: 160-189 mg/dL Very High Risk: >qy=392 mg/dL Cholesterol/HDL Ratio 3.7 ratio [facility] Lipid Interpretation See Note [facility] Comment: Lipid management should be guided by a patient? s ASCVD risk, goals and preferences. ACC/AHA Guidelines recommend high intensity statin if clinical ASCVD or LDL greater than or equal to 190 mg/dL. http://[employer].com/ZLC-QZP-Xbscgbpxq Adults aged 40-75 with LDL 70-189 mg/dL should have their 10 year ASCVD risk estimated with the ACC/AHA ASCVD risk cost estimator http://tools.acc.org/JBZKW-Cswg-Wcezxxnck/ Statin should be discussed if risk greater [...] Hallman MD CHEMISTRY ORDERABLES Performing Organization Address City/[facility]/ZIP Co de Phone Number [facility] [place] [address] * CK (06/07/2021 5:26 PM EDT) Creatine Kinase 33 0 - 160 unit/L [facility] Blood 06/07/2021 5:26 PM EDT 06/07/2021 5:36 PM EDT Narrative Resulting Agency Comment Spec In Lab Mario Hallman MD CHEMISTRY ORDERABLES Performing Organization Address [facility] de Phone Number [facility] [place] [address] * Hemoglobin A1c (06/07/2021 5:04 PM EDT) Hemoglobin A1c 5.6 4.3 - 5.6 % [facility] [...] 36: Suppl. 1, S67-21 Estimated Average Glucose 114 mg/dL [facility] Comment: eAG equivalents for [...] into estimated average glucose values. ??Diabetes Care 2008:31(8):9528-6175. Blood 06/07/2021 5:04 PM EDT 06/07/2021 5:36 PM EDT Narrative Resulting Agency Comment Spec In Lab Mario Hallman MD CHEMISTRY ORDERABLES [facility] [place] [address] * Troponin (06/07/2021 5:04 PM EDT) Troponin-T [...] ischemia ?? New or presumed new significant MU-uqaitdk-P wave (ST-T) changes or new left bundle [...] additional sample may be indicated. Reference: Third [place] Definition of Myocardial Infarction. Journal of the [place] College of Cardiology 2012;60:1581-98 Blood 06/07/2021 5:04 PM EDT 06/07/2021 5:36 PM EDT Narrative Resulting Agency Comment Spec In Lab Mario Hallman MD CHEMISTRY ORDERABLES Performing Organization Address [facility]/ZIP Co de Phone Number [facility] [place] [address] * EKG 12 Lead (06/07/2021 4:33 PM EDT) Pathologist [facility] Ventricular rate 54 BPM MUSE SYSTEM Atrial Rate 54 BPM MUSE SYSTEM P-R Interval 166 ms MUSE SYSTEM QRS Duration 86 ms MUSE SYSTEM Q-T Interval 514 ms MUSE SYSTEM QTC Calculated (Bezet) 487 ms MUSE SYSTEM Calculated P Gage 30 degrees MUSE SYSTEM Calculated R Gage 22 degrees MUSE SYSTEM Calculated T Gage 18 degrees MUSE SYSTEM INTERPRETATION Sinus bradycardia Left atrial enlargement Cannot rule out Lateral infarct , age undetermined Abnormal ECG When compared with ECG of 31-AUG-2019 07:05, No significant change was found Confirmed by MD Dalia, Willy Huerta ([id number]) on 06/09/2021 4:36:27 PM MUSE SYSTEM 06/07/2021 4:33 PM EDT 06/09/2021 4:36 PM EDT Mario Hallman MD ECG ORDERABLES Performing Organization Address City/[facility]/ZIP Co de Phone Number MUSE SYSTEM * COVID-19 PCR (06/07/2021 4:30 PM EDT) Pathologist [facility] SARS-CoV-2 RNA (Rapid) Not Detected Not Detected [facility] Comment: This result should [...] using the Simplexa COVID-19 Direct Assay by [employer] as authorized by the FDA issued Emergency [...] of Pathology and Laboratory Medicine at [facility], certified under the Clinical Laboratory Improvement [...] fact sheets at the following FDA website: https://www.fda.gov/medical-devices/gyuqpqdqsgl-jwqhjda-7142-uuifx-17-xerahunhk- use-a oxayhcfsscguv-wdtcras-vywfgvx/ousuc-qouishocbkz-ecpr SARS-CoV-2 Source OPERATIONS LABEL CLERK Swab [facility] Nasopharyngeal Swab 06/08/19 4:30 PM EDT 06/07/2021 4:45 PM EDT Comment:Symptoms->Surveillan ce Narrative Resulting Agency Comment Spec In Lab Mario Hallman MD MICROBIOLOGY - GENER AL ORDERABLES [facility] [place] [address] documented in this encounter Visit Diagnoses Not [...] at 2053, Until 06/09/21 at 1531, Headaches albuteroL (Proventil) nebulizer solution [...] (Symbicort) 160-4.5 mcg/actuation inhaler 2 Inhalation 2 .Inhalation , Inhalation, 2 TIMES DAILY, First dose on 06/07/21 at 2100, Until Discontinued, Routine Given 06/07/2021 8:25 PM EDT 2 .Inhalat ion clopidogreL (Plavix) tablet 75 mg 75 mg, Oral, DAILY, First dose on [place] 06/08/21 at 0900, Until Discontinued, Routine Given 06/08/2021 9:08 AM EDT [address] (Cymbalta) capsule 60 mg 60 mg, Oral, DAILY, First dose on 06/07/21 at 1845, Until Discontinued, Routine Given 06/08/2021 9:02 PM EDT 60 mg Given 06/07/2021 9:00 PM EDT 60 mg empagliflozin (Jardiance) Tab 10 mg 10 mg, Oral, DAILY, First dose on [place] 06/08/21 at 1545, Until Discontinued, Routine Given [...] 40 mg, Intravenous, ONCE, 1 dose, On [place] 06/08/21 at 1545 Given 06/08/2021 5:01 PM [...] PROTOCOL, Starting on 06/07/21 at 1744, Until [place] 06/08/21 at 1300, Per Protocol, START ADJUSTMENT [...] OSH) 0908 (Given - Provider: Jo Ann Maldonado, ERWIN) 0853 (MAY Hold - Provider: Admin Adt - Reason: Transfer to a Procedural area)0900 (Automatically Held - Provider: Admin Adt)0929 (MAR Unhold - Provider: Admin Adt)0939 (Given - Provider: Jo Ann Maldonado, ERWIN) atorvastatin (Lipitor) tablet 80 mg 80 mg, Oral, EVERY EVENING, First dose on 4/2/22 at 1845, Until Discontinued, Routine 184 (Not Given - Provider: Luiza Armstrong RN - Reason: See comment - Comment: per pt, took at OSH) 1701 (Given - Provider: Jo Ann Maldonado RN) 0853 (MAR Hold - Provider: Admin Adt - Reason: Transfer to a Procedural area)0929 (MAR Unhold - Provider: Admin Adt) budesonide-formoteroL (Symbicort) 160-4.5 mcg/actuation inhaler 2 Inhalation 2 .Inhalation , Inhalation, 2 TIMES DAILY, First dose [...] area)0900 (Automatically Held - Provider: Admin Adt)0929 ([facility] Unhold - Provider: Admin Adt) clopidogreL (Plavix) [...] - Reason: Transfer to a Procedural area)0929 ([facility] Unhold - Provider: Admin Adt) empagliflozin (Jardiance) [...] area)0900 (Automatically Held - Provider: Admin Adt)0929 ([facility] Unhold - Provider: Admin Adt) furosemide (Lasix) [...] - Provider: Jo Ann Maldonado RN) 0853 ([facility] Hold - Provider: Admin Adt - Reason: Transfer to a Procedural area)0900 (Automatically Held - Provider: Admin Adt)0929 ([facility] Unhold - Provider: Admin Adt)0939 (Given - Provider: Jo Ann Maldonado RN) gabapentin (Neurontin) capsule 300 mg 300 mg, Oral, 2 TIMES DAILY, First dose on 06/07/21 at 2100, Until Discontinued, Routine 2026 (Given - Provider: Olive Anne RN) 0908 (Given - Provider: Jo Ann Maldonado RN)2100 (Given - Provider: Colette Medina RN) 0853 ([facility] Hold - Provider: Admin Adt - Reason: Transfer to a Procedural area)0900 (Automatically Held - Provider: Admin Adt)0929 ([facility] Unhold - Provider: Admin Adt)0940 (Given - [...] takes this as needed for allergies.) 0853 (MAR Hold - Provider: Admin Adt - Reason: Transfer to a Procedural area)0900 (Not Given - Provider: Jo Ann Maldonado RN - Reason: Patient/family refused - Comment: only takes as needed)0929 (MAR Unhold - Provider: Admin Adt) metoprolol tartrate [...] not met - Comment: HR 56) 0853 (MAR Hold - Provider: Admin Adt - Reason: Transfer to a Procedural area)0900 (Not Given - Provider: Jo Ann Maldonado RN - Reason: Order parameters not met - Comment: HR 48)0929 (MAR Unhold - Provider: Admin Adt) montelukast (Singulair) tablet 10 mg 10 mg, Oral, NIGHTLY, First dose on 06/07/21 at 2100, Until Discontinued 2025 (Given - Provider: Olive Anne RN) 2058 (Given - Provider: Colette Medina, RN) 0853 ([facility] Hold - Provider: Admin Adt - Reason: Transfer to a Procedural area)0929 ([facility] Unhold - Provider: Admin Adt) rOPINIRole (Requip) tablet 1 mg 1 mg, Oral, NIGHTLY, First dose on 06/07/21 at 2100, Until Discontinued, Routine 2025 (Given - Provider: Olive Anne RN) 2058 (Given - Provider: Colette Medina, ERWIN) 0853 (MAY Hold - Provider: Admin Adt - Reason: Transfer to a Procedural area)0929 ([facility] Unhold - Provider: Admin Adt) topiramate (Topamax) tablet 50 mg 50 mg, Oral, 2 TIMES DAILY, First dose on 06/07/21 at 2100, Until Discontinued, Routine 2024 (Given - Provider: Olive Anne RN) 1009 (Given - Provider: Jo Ann Maldonado, ERWIN - Comment: awaiting medication from pharmacy)2110 (Given - Provider: Colette Medina, ERWIN) 0853 ([facility] Hold - Provider: Admin Adt - Reason: Transfer to a Procedural area)0929 ([facility] Unhold - Provider: Admin Adt)1254 (Given - Provider: Jo Ann Maldonado RN - Comment: awaiting medication from pharmacy) traZODone (Desyrel) tablet 100 mg 100 mg, Oral, NIGHTLY, First dose (after last reorder) on 06/07/21 at 2115, Until Discontinued, Routine 2099 (Given - Provider: Olive Anne RN) 2099 (Given - Provider: Colette Medina, ERWIN) 0853 ([facility] Hold - Provider: Admin Adt - Reason: Transfer to a Procedural area)0929 ([facility] Unhold - Provider: Admin Adt) Continuous Medication [...] area)09 (MAY Unhold - Provider: Admin Adt) albuteroL [...] Routine documented in this encounter Care Teams Case Manager Relationship Specialty Start Date End Date Pool Pearce PA [address] [place] [address] PCP - General Internal Medicine 06/09/21 documented as of this encounter
--- OUTSIDE RECORDS SUMMARY | 2023-10-20 20:00 | XMS_ITS | Encounter Summary ---
[place] [address] Care Team Providers Care Financial Center Manager Name Role Phone Polo Pearce Primary Care Provider [phone] Reason for Referral * Diagnostic Test (Routine) - Closed Specialty Diagnoses / Procedures Referred By Jayant harris Referred To Contact Cardiology Diagnoses Elevated blood pressure reading without diagnosis of hypertension Procedures Ziopatch 48 Hrs-15 Days Deja Zaidi PA [facility] [address] [facility] [place] [address] Referral ID Status Reason Start Date Expiration Date V isits Requested Visits Authorized [id number] Closed Specialty Service Requested 06/09/2021 12/09/2021 1 1 Reason for Visit * Diagnostic Test (Routine) - Closed Specialty Diagnoses / Procedures Referred By Jayant harris Referred To Contact Cardiology Diagnoses Elevated blood pressure reading without diagnosis of hypertension Procedures Ziopatch 48 Hrs-15 Days Deja Zaidi PA [facility] [place] [address] [facility] [place] [address] Referral ID Status Reason Start Date Expiration Date V isits Requested Visits Authorized [id number] Closed Specialty Service Requested 06/09/2021 12/09/2021 1 1 Encounter Details Date Type Department Care Team (Latest Contact Info) Description 06/09/2021 3:00 PM EDT - 06/09/2021 11:59 PM EDT Hospital Encounter Non-Invasive [place] [phone] Elevated blood pressure reading without diagnosis of [...] as needed. fluticasone propionate (FLONASE) 50 mcg/actuation [place], Suspension 1 spray by Each Nare route [...] AM EDT Hospital Encounter [place] [address] Mary Reyes APRN [facility] [place] [address] 10/21/2023 11:30 AM EDT Appointment [place] [address] [facility] [place] [address] 10/21/2023 12:30 PM EDT Appointment [place] [address] [facility] [place] [address] 10/21/2023 1:30 PM EDT Appointment [place] [phone] [place] [address] 10/21/2023 2:30 PM EDT Appointment [place] [address] [place] [address] 10/26/2023 4:00 PM EDT Office Visit Cardiology at [address] [phone] Jaspreet Kinsey MD [facility] [place] [address] 10/28/2023 9:00 AM EDT Office [place] [address] 10/29/2023 10:00 AM EDT Clinical [place] [address] 10/29/2023 10:15 AM EDT Procedure [place] [address] 11/01/2023 5:00 PM EDT Office Visit [place] [phone] Selene Browning, PhD [facility] [place] [address] 11/22/2023 4:40 PM EDT Office Visit Cardiology at [address] [phone] Porsha Mcdaniels MD [facility] [place] [address] 12/13/2023 10:00 AM EDT Clinical Support [place] [phone] [facility] [place] [place] [address] documented as of this encounter Procedures Procedure Name Priority Date/Time Associated Diagnosis Comments ZIOPATCH 48 HRS-15 DAYS Routine 06/09/2021 3:48 PM EDT Elevated blood pressure reading without diagnosis of hypertension documented in this encounter Results * Ziopatch 48 Hrs-15 Days (06/09/2021 3:48 PM EDT) Anatomical Region Laterality Modality Other Narrative 07/01/2021 9:29 AM EDT [facility] ? Zio Patch? Ambulatory Cardiac Event [...] atrial premature beat conducted with a prolonged CA interval, strongly suggestive of atrioventricular makayla reentrant [...] described ?? Kurt Larose MD, PhD, [facility] Cardiac Electrophysiology Mario Hallman MD CARDIAC SERVICES ORD ERABLES documented in this encounter Visit Diagnoses Diagnosis Elevated blood pressure reading without diagnosis of hypertension documented in this encounter Care Teams Financial Center Manager Relationship Specialty Start Date End Date Polo Pearce PA [address] [place] [address] PCP - General Internal Medicine 06/09/21 documented as of this encounter
--- OUTSIDE RECORDS SUMMARY | 2023-10-20 20:00 | XMS_ITS | Encounter Summary ---
Author Organization [facility] [place] [address] Care Team Providers Care Gear Lapping Machine Operator Name Role Phone Polo Pearce Primary Care Provider [phone] Reason for Referral * Diagnostic Test (Routine) - Closed Specialty Diagnoses / Procedures Referred By Jayant harris Referred To Contact Cardiology Diagnoses Elevated blood pressure reading without diagnosis of hypertension Procedures Ziopatch 48 Hrs-15 Days Deja Zaidi PA [facility] [place] [address] [facility] [place] [address] Referral ID Status Reason Start Date Expiration Date V isits Requested Visits Authorized [id number] Closed Specialty Service Requested 06/09/2021 12/09/2021 1 1 Reason for Visit * Auth/Cert Specialty Diagnoses / Procedures Referred By Jayant harris Referred To Contact Diagnoses NSTEMI (non-ST elevated myocardial infarction) NSTEMI Procedures EMERGENCY OBSVO Referral ID Status Reason Start Date Expiration Date Visits Re quested Visits Authorized [id number] 1 1 Encounter Details Date Type Department Care Team (Latest Contact Info) Description 06/07/2021 3:49 PM EDT - 06/09/2021 3:25 PM EDT Hospital Encounter Intermediate Cardiac Care Unit [facility] [place] [address] Mario Hallman MD [facility] [address] YARI [facility] NSTEMI (non-ST elevated myocardial infarction); Elevated blood [...] Loida Roque Patient Age: 51 y.o. Language: Somali Race: White Ethnicity: Not nor Admit date: [...] in a week and prn ?? Consider [place] as an out patient Inpatient Provider Contact Information: Dr. Mario Zaidi PA-C [phone] Discharge Diagnoses (Hospital Problems) and Secondary Diagnoses [...] change from prior in 08/2019. ?? Procedure Complete-04029. Image enhancement Definity was used for left [...] who have questions please contact the health farm or ranch animal caretaker that requested your imaging first. CXR 06/08/2021 [...] 15. ?? Hospital Course: On admission to [facility], the patient had no complaints of chest pain or shortness of breath at rest.Telemetry was attached which showed normal sinus rhythm. Heparin drip was infusing. [facility] records/transfer records were reviewed. Baseline labs were checked and/or drawn. Chest Pain, PA ruled out, Echo showed preserved LVEF Given the patient's risk factors, chronic non-specific ST-T changes on ECG, and here at [facility] normaltroponin as well as reproducible chest tenderness [...] significant weight, however during her stay at [facility] now she lost only 0.9 kg, to [...] Follow up Appointments: PCP Tim Rogers APRN [phone] to see you in a week (patient to set this up) Mel placed on 06/09/2021 Cardiology to see in a month and prn. Dr. Kinsey to see the patient in [place] on July 23 at 920 am. Please call [phone] with questions. Home oxygen therapy: N/A Arrangements for VNA/home care: none Future Appointments and Orders Future Appointments and Orders Future Appointments Provider Department Dept Phone 07/23/2021 8:20 AM Jaspreet Kinsey MD Cardiology at [place] Arrive at: [facility] [address] [phone] Future Orders Complete By Expires Mel 48 Hrs-15 Days [[id number] CPT(R)] 06/09/2021 12/09/2021 Process Instructions: Scheduling Instructions: Questions: Does the patient have a pacemaker? If yes provide HI/LO settings: Apply for 7 or 14 days?: 14 Where will study be performed?: [facility] Clinics Basic Metabolic Panel (non-fasting) [LAB15 Custom] 06/16/2021 (Approximate) 06/09/2022 Process Instructions: INCLUDES: Calcium, BUN, Creat, GFR, Glucose, Lytes Scheduling Instructions: Comments: Questions: Discharge References/Attachments None documented in this encounter Discharge Instructions * Discharge Instructions* Deja Zaidi PA - 06/08/2021 1:56 PM EDT Return to work: One week Driving: as needed Follow up Appointments: PCP Tim Rogers APRN [phone] to see you in a week (patient to set this up) Mel placed on 06/09/2021 Cardiology to see in a month and prn. Dr. Kinsey to see the patient in [place] on July 23 at 920 am. Please call [phone] with questions. Home oxygen therapy: N/A Arrangements for VNA/home care: none documented in this encounter Medications at Time of Discharge Medication Sig Dispensed Refills Start Date End Date rOPINIRole (Requip) 1 mg Tablet Take 2 mg by mouth 2 times daily. 07/16/2020 loratadine (Claritin) 10 mg Tablet Take 10 mg by mouth daily as needed. fluticasone propionate (FLONASE) 50 mcg/actuation [place], Suspension 1 spray by Each Nare [...] Nutrition Plan: Pt seen for Na2gm diet. Animal Herder informed pt of current diet orders and their restrictions. Pt expressed understanding and informed this greeting card writer that she tries to limit salt use at home. Animal Herder and pt discussed common sources of sodium (pre-prepared foods) and alternatives (fresh/frozen veggies). Provided educational material and encouraged pt to reach out with any questions or concerns. Will continue to monitor and follow up. Continue current diet. Monitor weight. Encourage good oral intake. Support and encouragement provided. Discussed case with Clinical Dietitian Active Orders Diet Daily Healthy Menu Choices/Cardiac diet ([facility]-Diet) 2 GM NA Frequency: Effective Now Number [...] nausea and no vomiting Last Bowel Movement: (LOCOMOTIVE ENGINEER DIESEL) Patient education / questions: provided diet order education and patient with good understanding, written education and contact information provided and all nutrition related questions answered at this time Nutrition services to follow weekly through hospital course unless consulted in the interim. Rocio Rosenthal Pager: [phone] * Deja Zaidi PA - 06/09/2021 9:14 AM EDT Inpatient Cardiology Discharge Day Note Patient Name: Loida Roque Service: ACTING MANAGER / PA Responsible Attending: Mario Hallman [...] (from the past 24 hour(s)) urine, qualitative ([facility]/CGP/NL) Result Value Ref Range Spec [place] UA 1.010 1.006 - 1.030 HCG Qual [...] seen on recent CT scan presents to [facility] from [facility] with a [...] with Dr. Hallman. ?? JOCY Hernandez Pager [phone] JOCY MCKOY 06/09/2021 Associated attestation - Mario Hallman MD - 06/09/2021 9:37 PM EDT Cardiology Attending Addendum I shared this visit with JOCY Zaidi and guided the medical decision- making. I explained to patient the findings of echo, R heart catheterization and our diagnostic impression and medications (furosemide and empagliflozin) and possible adverse events. More than 30 minutes were spent in ivjc-by-hltg contact with patient and with arranging discharge [...] Jaspreet Pardo - 06/08/2021 8:34 PM EDT Windows [employer] Deployment Lead Encounter Note Patient Name: Loida Roque : [id number] MR#: [id number] Admit Date: 06/07/2021 3:49 PM Hospital Day 0 days Narrative: Initial rounding visit to introduce legal contracts specialist services and to assess patient interest. Patient [...] Day Note Patient Name: Loida Roque Service: ACTING MANAGER / PA Responsible Attending: Mario Hallman [...] PCR Not Detected Not Detected SARS-CoV-2 Source ACTING MANAGER Swab Troponin Result Value Ref Range [...] seen on recent CT scan presents to [facility] from [facility] with a [...] with Dr. Hallman. ?? 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 ??? fluticasone propionate (FLONASE) 50 mcg/actuation [place], Suspension 1 spray by Each Nare [...] seen on recent CT scan presents to [facility] from [facility] with a NSTEMI. She has an elevated trop, BNP and lateral EKG changes. Patient is now awaiting an Echo and cardiac cath. Neurology consult called in to determine if she needs imaging prior to her Echo and cath given garbled speech a week ago. Stable at this time. TREATMENT PLAN: NSTEMI Admit to [facility] for telemetry monitoring Serial enzymes and EKGs [...] JOCY Hernandez 06/07/2021 Provider: JOCY MCKOY Pager [phone] 06/07/2021 Associated attestation - Mario Hallman MD [...] COVID test: Lab Results Component Value Date [id number] Not Detected 06/07/2021 Present on Admission: ??? [...] Primary care provider on file: Tim Rogers, PRODUCTION INTERN [phone] Pharmacy: [facility] - [place], [place] - [address] [facility] [address] [facility] [address] Advance Care Planning: Attempt Cardiopulmonary Resuscitation - Inpatient <no information> -Advanced Directive: No, declines (Boby (spouse) SDM) Current Functional Ability: Independent Functional Status Prior to Admission: Independent Home Environment: Others in the home: spouse. Current Living Arrangements: home/apartment/condo. Accessibility Concerns: . Current DME: none [address] [facility] [phone] Social & Family Supports: All names listed [...] private vehicle when medically ready. Registered Nurse Sales Clerk Supervisor / Face Boss will continue to follow patient???s progress and [...] Daily. ??? 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 Financial Resource Strain: Not on [...] L Elbow flexion 5/5 R, 5/5 L Indoor Sports Centre Manager LE: 5/5 R, 5/5 L Hip flexion [...] PCR Not Detected Not Detected SARS-CoV-2 Source ACTING MANAGER Swab Troponin Result Value Ref Range [...] CTH Melany Kahn MD Vascular Neurology Standard [facility] Swallow Screen: This screen is to be [...] diet as medical provider deems appropriate. Consider WIRE PULLER consult for full evaluation and diet recommendations. [...] NPO at midnight for cath 06/08 ECHO [facility] due at 2200 INDIVIDUALIZED FALL PREVENTION [...] for further details. JOCY MCKOY 06/07/2021 Pager [phone] documented in this encounter Plan of Treatment Upcoming Encounters Date Type Department Care Team (Late st Contact Info) Description 10/21/2023 10:30 AM EDT Hospital Encounter [place] [address] [place] [address] 10/21/2023 11:30 AM EDT Appointment [place] [address] Mary Reyes PRODUCTION INTERN [facility] [place] [address] 10/21/2023 12:30 PM EDT Appointment Nuclear Medicine at [facility] [place] [phone] Mary Reyes PRODUCTION INTERN [facility] [place] [address] 10/21/2023 1:30 PM EDT Appointment [place] [address] Mary Reyes APRN [facility] [place] [address] 10/21/2023 2:30 PM EDT Appointment [place] [address] [place] [address] 10/26/2023 4:00 PM EDT Office Visit Cardiology at [address] [address] Jaspreet Kinsey MD [facility] [place] [address] 10/28/2023 9:00 AM EDT Office Visit [place] [address] 10/29/2023 10:00 AM EDT Clinical Support [place] [address] 10/29/2023 10:15 AM EDT Procedure visit [place] [address] 11/01/2023 5:00 PM EDT Office [place] [address] Selene Browning, PhD [facility] [place] [address] 11/22/2023 4:40 PM EDT Office Visit Cardiology at [address] [address] Porsha Mcdaniels MD [facility] [place] [address] 12/13/2023 10:00 AM EDT Clinical [place] [address] [facility] [place] [address] documented as of this encounter [...] (non-ST elevated myocardial infarction) RAPID COVID-19 PCR ([facility]/APD/NLH) Routine 06/07/2021 4:30 PM EDT documented in this encounter Results * Ziopatch 48 Hrs-15 Days (06/09/2021 3:48 PM EDT) Anatomical Region Laterality Modality Other Narrative 07/01/2021 9:29 AM EDT [facility] ? Zio Patch? Ambulatory Cardiac [...] as described ?? Kurt Larose MD, PhD, [facility] Cardiac Electrophysiology Mario Hallman MD CARDIAC SERVICES ORD ERABLES * CARDIAC CATHETERIZATION (06/09/2021 9:05 AM EDT) Anatomical Region Laterality Modality Other Narrative 06/09/2021 9:09 AM EDT ?[facility] ? Cardiac Catheterization/Intervention Report ? Patient Name: Neisha, Loida ? Procedure Date: 06/09/2021 ? A #: [id number] ? Primary Physician: Aaron Ash ? Case #: [id number] ? File Name: [id number] ? Catheterization Order Number: [id number] ? [facility] ? Final Report [place], [place] ? Patient Name: ? Loida Neisha ? ID#: ?[id number] ? : ?1970 ? Procedure Date: ? June 09, 2021 ?Case #: ? [id number] ? Room: ? 1 ? Case Physician: [...] procedure was Urgent. 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 Chest pain symptom [...] Aaron Ash MD - 06/23/2021 [facility] Cardiac Catheterization/Intervention Report Patient Name: Loida Roque Procedure Date: 06/09/2021 A #: [id number] Primary Physician: Aaron Ash Case #: [id number] File Name: [id number] Catheterization Order Number: [id number] [facility] FinalReport [place], [place] Patient Name: Loida Roque ID#:[id number] :1970 Procedure Date: June 09, 2021 Case [...] patientwas designated as ASA Class III. The HA clinical frailty scale is 2:Well. Diagnostic Tests: [...] diagnostic procedure was Urgent. 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 Chest pain symptomassessment [...] pro-Brain Natriuretic Peptide (06/09/2021 3:37 AM EDT) NT-proBNP 911(H) <=124 pg/mL [facility] Blood Venous Draw / Unknown 06/09/2021 3:37 AM EDT 06/09/2021 3:59 AM EDT Narrative Resulting Agency Comment Spec In Lab Deja SANDRA CHEMISTRY ORDERABLES [facility] [place] [address] * Differential, Automated (06/09/2021 3:37 AM EDT) Neutrophil % 64.9 % [facility] Neutrophil Absolute 5.12 1.70 - 6.10 x10(3)/[facility] Lymph % 21.9 % [facility] Lymphocytes Abs 1.7 0.9 - 3.2 x10(3)/[facility] Monocyte % 8.6 % [facility] Monocyte Abs 0.7 0.3 - 0.9 x10(3)/[facility] Eos % 3.4 % [facility] Eosinophils Abs 0.3 0.0 - 0.4 x10(3)/[facility] Basophil % 0.8 % [facility] Baso Absolute 0.1 0.0 - 0.1 x10(3)/[facility] Immature Gran % 0.40 % [facility] [...] x10(3)/[facility] Blood 06/09/2021 3:37 AM EDT 06/09/2021 3:58 AM EDT Narrative Resulting Agency Comment Spec In Lab Deja SANDRA HEMATOLOGY ORDERABLE S [facility] [place] [address] * (ABNORMAL) Hemogram (06/09/2021 3:37 AM EDT) White Blood Cell 7.9 4.0 - 9.5 x10(3)/mc L [facility] Red Blood Cell 4.88 4.00 - 5.21 x10(6)/mc L [facility] Hemoglobin 15.2 11.7 - 15.5 g/dL [facility] Hematocrit 46.5(H) 35.7 - 45.8 % [facility] Mean Cell Volume 95.3(H) 82.6 - 94.4 fL [facility] Mean Cell Hemoglobin 31.1 27.1 - 32.0 pg [facility] Mean Cell Hemoglobin Concentration 32.7 31.7 - 35.0 g/dL [facility] Platelet 334 145 - 357 x10(3)/mc L [facility] RDW Standard Deviation 49.2(H) 37.0 - 46.0 fL [facility] RDW coefficient of variation 14.5(H) 11.5 - 14.1 % [facility] Mean Platelet Volume 10.2 7.6 - 12.9 fL [facility] NRBC% auto 0.0 % [facility] NRBC Absolute 0.000 0.000 - 0.000 x10(3)/mc L [facility] Blood 06/09/2021 3:37 AM EDT 06/09/2021 3:58 AM EDT Narrative Resulting Agency Comment Spec In Lab Deja SANDRA HEMATOLOGY ORDERABLE S [facility] [place] [address] * (ABNORMAL) BMP w/fasting Glucose (06/09/2021 3:37 [...] of Diabetes Mellitus, Position Statement from the [place] [employer]. ??Diabetes Care, Volume 33, Supplement 1, Mar 2009 Blood Urea Nitrogen 23(H) 8 - 18 mg/dL [facility] [...] 107 mmol/L [facility] Carbon Dioxide 22 22 - 31 mmol/L [facility] Anion Gap 13 5 - 15 mmol/L [facility] Calcium 9.3 8.5 - 10.5 mg/dL [facility] Est Glomerular Filtration Rate 78 >=60 mL/min/1. 73 m?? [facility] [...] Hallman MD CHEMISTRY ORDERABLES Performing Organization Address [facility] Co de Phone Number [facility] [place] [address] * Heparin (unfractionated) Level (06/08/2021 4:07 PM EDT) UF Heparin <0.04 IU/mL [facility] [...] MD HEMATOLOGY ORDERABLE S Performing Organization Address [facility]/ZIP Co de Phone Number [facility] [place] [address] * XR Chest PA & Lateral (Generic) [...] who have questions please contact the health farm or ranch animal caretaker that requested your imaging first. ? Electronically signed by: Magda Machado MD, [facility] ([phone]), at 06/08/2021 6:00 PM Narrative 06/08/2021 6:00 [...] patients who have questions please contactthe health farm or ranch animal caretaker that requested your imaging first. Mario Hallman [...] who have questions please contact the health farm or ranch animal caretaker that requested your imaging first. ? Electronically signed by: Kiran Cantor MD, [facility] ([phone]), at 06/08/2021 2:35 PM Narrative 06/08/2021 2:35 [...] patients who have questions please contactthe health farm or ranch animal caretaker that requested your imaging first. Electronically signed by: Kiran Cantor MD, [facility]([phone]), at 06/08/2021 2:35 PM Mario Hallman MD [facility] MRI ORDERABLES * (ABNORMAL) CRP, acute inflammation (06/08/2021 11:58 AM EDT) C-Reactive Protein 28.1(H) <=4.9 mg/L [facility] Blood 06/08/2021 11:5 8 AM EDT 06/08/2021 12:04 PM EDT Narrative Resulting Agency Comment Spec In Lab Mario Hallman MD CHEMISTRY ORDERABLES Performing Organization Address [facility]/ZIP Co de Phone Number [facility] [place] [address] * CK (06/08/2021 11:58 AM EDT) Creatine Kinase 30 0 - 160 unit/L [facility] Blood 06/08/2021 11:5 8 AM EDT 06/08/2021 12:04 PM EDT Narrative Resulting Agency Comment Spec In Lab Mario Hallman MD CHEMISTRY ORDERABLES Performing Organization Address City/[facility]/ZIP Co de Phone Number [facility] [place] [address] * (ABNORMAL) Sedimentation rate (06/08/2021 11:58 AM EDT) Pathologist [facility] Sedimentation Rate Automated 53(H) 2 - 39 mm/hr [facility] [...] ORDERABLE S Performing Organization Address [facility] Co de Phone Number [facility] [place] [address] * Heparin (unfractionated) Level (06/08/2021 11:58 AM EDT) [facility] UF Heparin 0.77 IU/mL [facility] [...] MD HEMATOLOGY ORDERABLE S Performing Organization Address [facility]/ZIP Co de Phone Number [facility] [place] [address] * urine, qualitative ([facility]/CGP/NL) (06/08/2021 11:51 AM EDT) Specific [place] Urine Automated 1.010 1.006 - 1.030 [facility] Human Chorionic Gonadotropin Qualitative, Urine Negative [facility] Comment: Dilute urine samples can result in a false negative test. Repeat testing on a first morning sample or a plasma quantitative hCG measurement is recommended. Urine 06/08/2021 11:5 1 AM EDT 06/08/2021 12:32 PM EDT Narrative Resulting Agency Comment Spec In Lab Mario Hallman MD URINE ORDERABLES [facility] [address] [facility] [address] [place] [address] * ECHO COMPLETE W CONTRAST (06/08/2021 11:09 AM EDT) Anatomical Region Laterality Modality Other 06/08/2021 9:35 AM EDT Narrative 06/08/2021 12:42 PM EDT ?[facility] ?[address] ? [place] [address] ?Voice: ?Fax: ? Echocardiogram Report Name: NEISHA, LOIDA ? Study Date: 06/08/2021 09:35 AMBP: 109/69 mmHg ? [facility] : 1970 ? Height: 163 cm ? Account: [id number] Age: 51 yrs ? Weight: 95 kg Gender: Female ?BSA: 2.0 m2 Ordering Physician: DONALD Referring Physician: AJ HARTMAN Performed By: Aaron Herr RDCS Reason For Study: NSTEMI (non-ST elevated myocardial infarction) Exam Location: [facility]. Interpretation Summary 1. Left ventricle is of [...] significant change from prior in 08/2019. Procedure Complete-06705. Image enhancement Definity was used for left [...] Procedure Note Kai Haider MD - 06/08/2021 [facility] [address] [place] [address] Voice: Fax: Echocardiogram Report Name: LOIDA ROQUE Study Date: 209:35 AMBP: 109/69 mmHg Patient Location:[address] : 1970 Height: 163 cm Account: [id number] Age: 51 yrs Weight: 95 kg Gender: Female BSA: 2.0 m2 Ordering Physician: DONALD Referring Physician: AJ HARTMAN Performed By: Aaron Herr RDCS Reason For Study: NSTEMI (non-ST elevated myocardial infarction) Exam Location: [facility]. Interpretation Summary 1. Left ventricle is of [...] significant change from prior in 08/2019. Procedure Complete-38566. Image enhancement Definity was used for left [...] Heparin (unfractionated) Level (06/08/2021 5:54 AM EDT) UF Heparin 1.20(Crit ical) IU/mL [facility] [...] Lab Edie Costello MD HEMATOLOGY ORDERABLE S [facility] [place] [address] * (ABNORMAL) Differential, Automated (06/08/2021 4:41 AM EDT) Neutrophil % 71.8 % [facility] Neutrophil Absolute 8.09(H) 1.70 - 6.10 x10(3)/mc L [facility] Lymph % 18.0 % [facility] Lymphocytes Abs 2.0 0.9 - 3.2 x10(3)/mc L [facility] Monocyte % 5.7 % [facility] Monocyte Abs 0.6 0.3 - 0.9 x10(3)/mc L [facility] Eos % 3.5 % [facility] Eosinophils Abs 0.4 0.0 - 0.4 x10(3)/mc L [facility] Basophil % 0.6 % [facility] Baso Absolute 0.1 0.0 - 0.1 x10(3)/mc L [facility] [...] Absolute 0.05(H) 0.00 - 0.04 x10(3)/mc L [facility] Blood 06/08/2021 4:41 AM EDT 06/08/2021 5:11 AM EDT Narrative Resulting Agency Comment Spec In Lab Deaj SANDRA HEMATOLOGY ORDERABLE S Performing Organization Address City/State/[facility] Co de Phone Number [facility] [place] [address] * (ABNORMAL) Hemogram (06/08/2021 4:41 AM EDT) White Blood Cell 11.3(H) 4.0 - 9.5 x10(3)/mc L [facility] Red Blood Cell 4.64 4.00 - 5.21 x10(6)/mc L [facility] Hemoglobin 13.9 11.7 - 15.5 g/dL [facility] Hematocrit 43.0 35.7 - 45.8 % [facility] Mean Cell Volume 92.7 82.6 - 94.4 fL [facility] Mean Cell Hemoglobin 30.0 27.1 - 32.0 pg [facility] Mean Cell Hemoglobin Concentration 32.3 31.7 - 35.0 g/dL [facility] Platelet 312 145 - 357 x10(3)/mc L [facility] RDW Standard Deviation 47.4(H) 37.0 - 46.0 fL [facility] RDW coefficient of variation 14.3(H) 11.5 - 14.1 % [facility] Mean Platelet Volume 10.8 7.6 - 12.9 fL [facility] NRBC% auto 0.0 % [facility] NRBC Absolute 0.000 0.000 - 0.000 x10(3)/mc L [facility] Blood 06/08/2021 4:41 AM EDT 06/08/2021 5:11 AM EDT Narrative Resulting Agency Comment Spec In Lab Deja SANDRA HEMATOLOGY ORDERABLE S Performing Organization Address City/State/[facility] Co de Phone Number [facility] [place] [address] * (ABNORMAL) Heparin (unfractionated) Level (06/08/2021 4:41 AM EDT) UF Heparin 1.06(Crit ical) IU/mL [facility] [...] MD HEMATOLOGY ORDERABLE S Performing Organization Address [facility] Co de Phone Number [facility] [place] [address] * (ABNORMAL) BMP w/fasting Glucose (06/08/2021 4:41 [...] of Diabetes Mellitus, Position Statement from the [place] [employer]. ??Diabetes Care, Volume 33, Supplement 1, Mar 2009 Blood Urea Nitrogen 21(H) 8 - 18 mg/dL [facility] [...] 107 mmol/L [facility] Carbon Dioxide 22 22 - 31 mmol/L [facility] Anion Gap 13 5 - 15 mmol/L [facility] Calcium 8.7 8.5 - 10.5 mg/dL [facility] Est Glomerular Filtration Rate 77 >=60 mL/min/1. 73 m?? [facility] [...] Hallman MD CHEMISTRY ORDERABLES Performing Organization Address City/[facility]/ZIP Co de Phone Number [facility] [place] [address] * Troponin (06/08/2021 4:41 AM EDT) Pathologist [facility] Troponin-T <0.01 0.00 - 0.00 ng/mL [facility] Comment: The 99th percentile for Troponin T is less than 0.01 ng/mL, any detectable cTnT concentration using this assay should be considered elevated. According to the third universal definition of myocardial infarction the following criteria with a clinical presentation consistent with acute myocardial ischemia meets the diagnosis for a myocardial infarction (PA). Detection of a rise and/or fall of cTnT, with at least one value greater than the 99th percentile (> or = 0.01) and with at least one of the following ?? Symptoms of ischemia ?? New or presumed new significant TX-wgxtesx-H wave (ST-T) changes or new left bundle [...] additional sample may be indicated. Reference: Third [place] Definition of Myocardial Infarction. Journal of the [place] College [employer] 2012;60:1581-98 Blood 06/08/2021 4:41 AM EDT 06/08/2021 5:12 AM EDT Narrative Resulting Agency Comment Spec In Lab Mario Hallman MD CHEMISTRY ORDERABLES Performing Organization Address [facility]/ZIP Co de Phone Number [facility] [place] [address] * Heparin (unfractionated) Level (06/07/2021 9:55 PM EDT) Pathologist [facility] UF Heparin 0.08 IU/mL [facility] [...] MD HEMATOLOGY ORDERABLE S Performing Organization Address City/[facility]/ZIP Co de Phone Number [facility] [place] [address] * (ABNORMAL) pro-Brain Natriuretic Peptide (06/07/2021 5:26 PM EDT) Pathologist [facility] NT-proBNP 2,701(H) <=124 pg/mL [facility] Blood Venous Draw / Unknown 06/07/2021 5:26 PM EDT 06/07/2021 5:44 PM EDT Narrative Resulting Agency Comment Spec In Lab Deja SANDRA CHEMISTRY ORDERABLES Performing Organization Address City/[facility]/ZIP Co de Phone Number [facility] [place] [address] * (ABNORMAL) Differential, Automated (06/07/2021 5:26 PM EDT) Pathologist [facility] Neutrophil % 74.6 % [facility] Neutrophil Absolute 8.97(H) 1.70 - 6.10 x10(3)/mc L [facility] Lymph % 15.9 % [facility] Lymphocytes Abs 1.9 0.9 - 3.2 x10(3)/mc L [facility] Monocyte % 6.0 % [facility] Monocyte Abs 0.7 0.3 - 0.9 x10(3)/[facility] Eos % 2.6 % [facility] Eosinophils Abs 0.3 0.0 - 0.4 x10(3)/[facility] Basophil % 0.5 % [facility] Baso Absolute 0.1 0.0 - 0.1 x10(3)/[facility] Immature Gran % 0.40 % [facility] Comment: Immature granulocytes(IG's)percentage and absolute count will include metamyelocytes, myelocytes, and promyelocytes. Blood smears from CBCs yielding IG's will be scanned manually for concordance. If this scan disagrees with the automated IG or if promyelocytes are noted, a manual differential will be performed. Immature Gran Absolute 0.05(H) 0.00 - 0.04 x10(3)/[facility] Blood 06/07/2021 5:26 PM EDT 06/07/2021 5:36 PM EDT Narrative Resulting Agency Comment Spec In Lab Deja SANDRA HEMATOLOGY ORDERABLE S Performing Organization Address City/State/[facility] Co de Phone Number [facility] [place] [address] * (ABNORMAL) Hemogram (06/07/2021 5:26 PM EDT) White Blood Cell 12.0(H) 4.0 - 9.5 x10(3)/[facility] Red Blood Cell 4.72 4.00 - 5.21 x10(6)/[facility] Hemoglobin 14.5 11.7 - 15.5 g/dL [facility] Hematocrit 44.0 35.7 - 45.8 % [facility] Mean Cell Volume 93.2 82.6 - 94.4 fL [facility] Mean Cell Hemoglobin 30.7 27.1 - 32.0 pg [facility] Mean Cell Hemoglobin Concentration 33.0 31.7 - 35.0 g/dL [facility] Platelet 346 145 - 357 x10(3)/mc L [facility] RDW Standard Deviation 47.2(H) 37.0 - 46.0 fL [facility] RDW coefficient of variation 14.4(H) 11.5 - 14.1 % [facility] Mean Platelet Volume 10.6 7.6 - 12.9 fL [facility] NRBC% auto 0.0 % [facility] NRBC Absolute 0.000 0.000 - 0.000 x10(3)/mc L [facility] Blood 06/07/2021 5:26 PM EDT 06/07/2021 5:36 PM EDT Narrative Resulting Agency Comment Spec In Lab Deja SANDRA HEMATOLOGY ORDERABLE S Performing Organization Address City/State/[facility] Co de Phone Number [facility] [place] [id number] * BMP w/fasting Glucose (06/07/2021 5:26 PM [...] of Diabetes Mellitus, Position Statement from the [place] [employer]. ??Diabetes Care, Volume 33, Supplement 1, Mar 2009 Blood Urea Nitrogen 18 8 - 18 mg/dL [facility] [...] 107 mmol/L [facility] Carbon Dioxide 24 22 - 31 mmol/L [facility] Anion Gap 12 5 - 15 mmol/L [facility] Calcium 9.1 8.5 - 10.5 mg/dL [facility] Est Glomerular Filtration Rate 60 >=60 mL/min/1. 73 m?? [facility] [...] CHEMISTRY ORDERABLES [facility] [place] [address] * T3 Total (06/07/2021 5:26 PM EDT) T3 Total 134 80 - 200 ng/dL [facility] Blood 06/07/2021 5:26 PM EDT 06/07/2021 5:36 PM EDT Narrative Resulting Agency Comment Spec In Lab Mario Hallman MD CHEMISTRY ORDERABLES Performing Organization Address City/[facility] Co de Phone Number [facility] [place] [address] * T4 Total (06/07/2021 5:26 PM EDT) T4 Total 6.8 5.3 - 11.6 mcg/dL [facility] Comment: Reference Interval (mcg/dL): Females: ??First Trimester: 6.3-13.5 ??Second Trimester: 7.1-14.3 ??Third Trimester: 6.9-14.1 Blood 06/07/2021 5:26 PM EDT 06/07/2021 5:36 PM EDT Narrative Resulting Agency Comment Spec In Lab Mario Hallman MD CHEMISTRY ORDERABLES Performing Organization Address [facility] Co de Phone Number [facility] [place] [address] * (ABNORMAL) TSH (06/07/2021 5:26 PM EDT) Thyroid Stimulating Hormone 5.83(H) 0.27 - 4.20 mcIU/mL [facility] Comment: Reference Interval (mcIU/mL): Females: ??First Trimester: 0.23-3.88 ??Second Trimester: 0.22-3.90 ??Third Trimester: 0.44-4.66 Blood 06/07/2021 5:26 PM EDT 06/07/2021 5:36 PM EDT Narrative Resulting Agency Comment Spec In Lab Mario Hallman MD CHEMISTRY ORDERABLES Performing Organization Address [facility] Co de Phone Number [facility] [place] [address] * Lipase (06/07/2021 5:26 PM EDT) Lipase 18 0 - 60 unit/L [facility] Blood 06/07/2021 5:26 PM EDT 06/07/2021 5:36 PM EDT Narrative Resulting Agency Comment Spec In Lab Mario Hallman MD CHEMISTRY ORDERABLES Performing Organization Address City/[facility] Co de Phone Number [facility] [place] [address] * Amylase (06/07/2021 5:26 PM EDT) Amylase 39 28 - 100 unit/L [facility] Blood 06/07/2021 5:26 PM EDT 06/07/2021 5:36 PM EDT Narrative Resulting Agency Comment Spec In Lab Mario Hallman MD CHEMISTRY ORDERABLES Performing Organization Address [facility] de Phone Number [facility] [place] [address] * Lipid Panel (Reflex Direct LDL) (06/07/2021 5:26 PM EDT) Cholesterol, Total 164 mg/dL [facility] Comment: Lower Risk: <200 mg/dL Average Risk: 200-239 mg/dL Higher Risk: >ag=662 mg/dL Triglyceride 144 mg/dL [facility] Comment: Average Risk/Lower Risk: <150 mg/dL Borderline High Risk: 150-199 mg/dL High Risk: 200-499 mg/dL Very High Risk: >ib=251 mg/dL HDL Cholesterol 44 mg/dL [facility] Comment: Males: ?? Higher Risk: <40 mg/dL Females: ?? Higher Risk: <50 mg/dL LDL Cholesterol 91 mg/dL [facility] Comment: Lowest Risk: <100 mg/dL Lower Risk: 100-129 mg/dL Borderline High Risk: 130-159 mg/dL High Risk: 160-189 mg/dL Very High Risk: >pp=692 mg/dL Cholesterol/HDL Ratio 3.7 ratio [facility] Lipid Interpretation See Note [facility] Comment: Lipid management should be guided by a patient? s ASCVD risk, goals and preferences. ACC/AHA Guidelines recommend high intensity statin if clinical ASCVD or LDL greater than or equal to 190 mg/dL. http://Lot78.com/AKT-QDP-Ehxxeawkx Adults aged 40-75 with LDL 70-189 mg/dL should have their 10 year ASCVD risk estimated with the ACC/AHA ASCVD risk civil estimator http://tools.acc.org/FLCVR-Oife-Auqbaynvx/ Statin should be discussed if risk greater [...] Hallman MD CHEMISTRY ORDERABLES Performing Organization Address City/[facility]/ZIP Co de Phone Number [facility] [place] [address] * CK (06/07/2021 5:26 PM EDT) Creatine Kinase 33 0 - 160 unit/L [facility] Blood 06/07/2021 5:26 PM EDT 06/07/2021 5:36 PM EDT Narrative Resulting Agency Comment Spec In Lab Mario Hallman MD CHEMISTRY ORDERABLES [facility] [place] [address] * Hemoglobin A1c (06/07/2021 5:04 PM EDT) Hemoglobin A1c 5.6 4.3 - 5.6 % [facility] [...] Mellitus, Diabetes Care 2013; 36: Suppl. 1, S67-88 Estimated Average Glucose 114 mg/dL [facility] [...] into estimated average glucose values. ??Diabetes Care 2008:31(8):4094-8658. Blood 06/07/2021 5:04 PM EDT 06/07/2021 5:36 PM EDT Narrative Resulting Agency Comment Spec In Lab Mario Hallman MD CHEMISTRY ORDERABLES [facility] [place] [address] * Troponin (06/07/2021 5:04 PM EDT) Troponin-T [...] meets the diagnosis for a myocardial infarction (PA). Detection of a rise and/or fall of cTnT, with at least one value greater than the 99th percentile (> or = 0.01) and with at least one of the following ?? Symptoms of ischemia ?? New or presumed new significant EB-bskmisr-R wave (ST-T) changes or new left bundle [...] additional sample may be indicated. Reference: Third [place] Definition of Myocardial Infarction. Journal of the [place] College of [employer]iology 2012;60:1581-98 Blood 06/07/2021 5:04 PM EDT 06/07/2021 5:36 PM EDT Narrative Resulting Agency Comment Spec In Lab Mario Hallman MD CHEMISTRY ORDERABLES [facility] [place] [address] * EKG 12 Lead (06/07/2021 4:33 PM EDT) [facility] Ventricular rate 54 BPM MUSE SYSTEM Atrial Rate 54 BPM MUSE SYSTEM P-R Interval 166 ms MUSE SYSTEM QRS Duration 86 ms MUSE SYSTEM Q-T Interval 514 ms MUSE SYSTEM QTC Calculated (Bezet) 487 ms MUSE SYSTEM Calculated P [place] 30 degrees MUSE SYSTEM Calculated R [place] 22 degrees MUSE SYSTEM Calculated T [place] 18 degrees MUSE SYSTEM INTERPRETATION Sinus bradycardia Left atrial enlargement Cannot rule out Lateral infarct , age undetermined Abnormal ECG When compared with ECG of 31-AUG-2019 07:05, No significant change was found Confirmed by MD Dalia, Willy Huerta ([id number]) on 06/09/2021 4:36:27 PM MUSE SYSTEM 06/07/2021 4:33 PM EDT 06/09/2021 4:36 PM EDT Mario Hallman MD ECG ORDERABLES MUSE SYSTEM * COVID-19 PCR (06/07/2021 4:30 PM EDT) SARS-CoV-2 RNA (Rapid) Not Detected Not Detected [facility] Comment: This result should be [...] using the Simplexa COVID-19 Direct Assay by [employer] as authorized by the FDA issued Emergency [...] Department of Pathology and Laboratory Medicine at [facility], certified under the Clinical Laboratory Improvement Amendments [...] fact sheets at the following FDA website: https://www.fda.gov/medical-devices/bfanirbnhhd-twpjhdx-0033-rwxow-41-bktpwhcco- use-a wczhkuvnmyslj-vupjzgf-srubyob/ekbuj-rfjioaytizl-hynw SARS-CoV-2 Source ACTING MANAGER Swab MA RY [facility] Nasopharyngeal Swab 06/08/19 4:30 PM EDT 06/07/2021 4:45 PM EDT Comment:Symptoms->Surveillan ce Narrative Resulting Agency Comment Spec In Lab Mario Hallman MD MICROBIOLOGY - GENER AL ORDERABLES [facility] [place] [id number] documented in this encounter Visit Diagnoses Diagnosis [...] Inhalation, 2 TIMES DAILY, First dose on Wed06/07/21 at 2100, Until Discontinued, Routine Given 06/07/2021 [...] 10 mg, Oral, DAILY, First dose on [place] 06/08/21 at 1545, Until Discontinued, Routine Given [...] 06/07/21 at 1610, Until 06/07/21 at 1614, Shover, Luiza J.: cabinet override heparin (porcine) 50 units/mL in [...] Medina RN - Reason: Patient/family refused) 0853 (MAY Hold - Provider: Admin Adt - Reason: Transfer to a Procedural area)0900 (Automatically Held - Provider: Admin Adt)0929 ([facility] Unhold - Provider: Admin Adt) clopidogreL (Plavix) tablet 75 mg (CANCELED) 75 mg, Oral, DAILY, First dose on 06/08/21 at 0900, Until Discontinued, Routine 0908 (Given - Provider: Jo Ann Maldonado, ERWIN) DULoxetine DR (Cymbalta) capsule 60 mg 60 mg, Oral, DAILY, First dose on 06/07/21 at 1845, Until Discontinued, Routine 2100 (Given - Provider: Olive Anne RN) 2102 (Given - Provider: Colette Medina RN) 0853 ([facility] Hold - Provider: Admin Adt - Reason: Transfer to a Procedural area)0929 ([facility] Unhold - Provider: Admin Adt) empagliflozin (Jardiance) Tab 10 mg 10 mg, Oral, DAILY, First dose on 06/08/21 at 1545, Until Discontinued, Routine 1717 (Given - Provider: Jo Ann Maldonado RN - Comment: awaiting medication from pharmacy) 0853 ([facility] Hold - Provider: Admin Adt - Reason: Transfer to a Procedural area)0900 (Automatically Held - Provider: Admin Adt)0929 ([facility] Unhold - Provider: Admin Adt)0940 (Given - [...] she only takes this as needed.) 0853 ([facility] Hold - Provider: Admin Adt - Reason: Transfer to a Procedural area)0900 (Automatically Held - Provider: Admin Adt)0929 ([facility] Unhold - Provider: Admin Adt) furosemide (Lasix) [...] area)0900 (Automatically Held - Provider: Admin Adt)0929 ([facility] Unhold - Provider: Admin Adt)0939 (Given - [...] takes this as needed for allergies.) 0853 (MAY Hold - Provider: Admin Adt - Reason: Transfer to a Procedural area)0900 (Not Given - Provider: Jo Ann Maldonado RN - Reason: Patient/family refused - Comment: only takes as needed)0929 ([facility] Unhold - Provider: Admin Adt) metoprolol tartrate (Lopressor) tablet 12.5 mg 12.5 mg, Oral, EVERY 12 HOURS SCHEDULED (2 times per day), First dose on 06/07/21 at 2099, Until Discontinued, Routine 2025 (Not Given - Provider: Olive Anne RN - Reason: Order parameters not met - Comment: HR <60) 0910 (Given - Provider: Jo Ann Maldonado RN)2099 (Not Given - Provider: Colette Medina RN - Reason: Order parameters not met - Comment: HR 56) 0853 ([facility] Hold - Provider: Admin Adt - Reason: Transfer to a Procedural area)0900 (Not Given - Provider: Jo Ann Maldonado RN - Reason: Order parameters not met - Comment: HR 48)09 ([facility] Unhold - Provider: Admin Adt) montelukast (Singulair) tablet 10 mg 10 mg, Oral, NIGHTLY, First dose on 06/07/21 at 2100, Until Discontinued 2025 (Given - Provider: Olive Anne RN) 2058 (Given - Provider: Colette Medina RN) 0853 ([facility] Hold - Provider: Admin Adt - Reason: Transfer to a Procedural area)09 ([facility] Unhold - Provider: Admin Adt) rOPINIRole (Requip) tablet 1 mg 1 mg, Oral, NIGHTLY, First dose on 06/07/21 at 2100, Until Discontinued, Routine 2025 (Given - Provider: Olive Anne RN) 2058 (Given - Provider: Colette Medina RN) 0853 ([facility] Hold - Provider: Admin Adt - Reason: Transfer to a Procedural area)09 ([facility] Unhold - Provider: Admin Adt) topiramate (Topamax) [...] Admin Adt)1254 (Given - Provider: Jo Ann Maldonado, ERWIN - Comment: awaiting medication from pharmacy) traZODone [...] PRN, Starting on 06/07/21 at 1744, Until Wed06/09/21 at 1531, Headache, Routine 0853 (MAY Hold - Provider: Admin Adt - Reason: Transfer to a Procedural area)0929 (MAY Unhold - Provider: Admin Adt) midazolam [...] Routine documented in this encounter Care Teams Gear Lapping Machine Operator Relationship Specialty Start Date End Date Polo Pearce PA [address] [place] [address] PCP - General Internal Medicine 06/09/21 documented as of this encounter
--- OUTSIDE RECORDS SUMMARY | 2023-10-20 20:00 | XMS_ITS | Encounter Summary ---
Author Organization [facility] Address [facility] [place] [address] Care Team Providers Care Metallurgical Technician Name Role Phone Polo Pearce Primary Care Provider [phone] Encounter Details Date Type Department Care Team (Late st Contact Info) Description 06/13/2021 Telephone Cardiology at [address] [address] Chayo Dominguez PA [facility] [place] [address] Social History Tobacco Use Types Packs/Day Years [...] Referring Provider: Dr. Gale Trinh Patient Location: [facility] See Dr. Mejia's telephone encounter [...] Of note, she was recently admitted [place] [facility] [place] of [place] and discharged 06/08/21. At that time she initially presented to [facility] where she was noted to have a troponin I of 406 which was flat at 411 on repeat and an elevated BNP. EKG showed nonspecific ST changes in the inferolateral leads. She was transferred to [facility] for further evaluation where she underwent a [...] management. Chayo Chappell PA-C Cardiovascular Medicine Pager [phone] 06/13/2021 documented in this encounter Plan of Treatment Upcoming Encounters Date Type Department Care Team (Late st Contact Info) Description 10/21/2023 10:30 AM EDT Hospital Encounter [place] [address] [place] [address] 10/21/2023 11:30 AM EDT Appointment [place] [address] Mary Reyes [facility] [place] [address] 10/21/2023 12:30 PM EDT Appointment [place] [address] Mary Reyes [facility] [place] [address] 10/21/2023 1:30 PM EDT Appointment [place] [address] Mary Reyes [employer] [facility] [place] [address] 10/21/2023 2:30 PM EDT Appointment [place] [phone] Mary Reyes [employer] [facility] [address] 10/26/2023 4:00 PM EDT Office Visit Cardiology at [address] [phone] Jaspreet Kinsey MD [facility] [place] [address] 10/28/2023 9:00 AM EDT Office [place] [address] 10/29/2023 10:00 AM EDT Clinical [place] [address] 10/29/2023 10:15 AM EDT Procedure [place] [address] 11/01/2023 5:00 PM EDT Office Visit [place] [address] Selene Browning, PhD [facility] [place] [address] 11/22/2023 4:40 PM EDT Office Visit Cardiology at [address] [phone] Porsha Mcdaniels MD [facility] [place] [address] 12/13/2023 10:00 AM EDT Clinical Support [place] [phone] Lucero Romero, [place] [facility] [place] [address] documented as of this encounter Visit Diagnoses Not on filedocumented in this encounter Care Teams Metallurgical Technician Relationship Specialty Start Date End Date Polo Pearce PA [address] [place] [address] PCP - General Internal Medicine 06/09/21 documented as of this encounter
--- OUTSIDE RECORDS SUMMARY | 2023-10-20 20:00 | XMS_ITS | Encounter Summary ---
[place] [address] Care Team Providers Care Pen And Pencil Repairer Name Role Phone Polo Pearce Primary Care Provider [phone] Encounter Details Date Type Department Care Team (Late st Contact Info) Description 06/10/2021 Telephone Cardiology at [address] [phone] Lashonda Menjivar, RN Social History Tobacco Use [...] prescription for 90 days of Jardiance, to [facility]. Prescription pended. Lashonda Menjivar RN (Jodie), BSN Cardiology Ambulatory [facility] documented in this encounter Plan of Treatment Upcoming Encounters Date Type Department Care Team (Late st Contact Info) Description 10/21/2023 10:30 AM EDT Hospital Encounter [place] [address] Mary Reyes [facility] [place] [address] 10/21/2023 11:30 AM EDT Appointment Nuclear Medicine at [place] [phone] Mary Reyes [facility] [place] [address] 10/21/2023 12:30 PM EDT Appointment Nuclear Medicine at [place] [phone] Mary Reyes [facility] [place] [place] [address] 10/21/2023 1:30 PM EDT Appointment [place] [address] Mary Reyes [facility] [place] [address] 10/21/2023 2:30 PM EDT Appointment [place] [address] Mary Reyes [facility] [place] [place] [address] 10/26/2023 4:00 PM EDT Office Visit Cardiology at [address] [phone] Jaspreet Kinsey MD [facility] [place] [address] 10/28/2023 9:00 AM EDT Office [place] [address] 10/29/2023 10:00 AM EDT Clinical [place] [address] 10/29/2023 10:15 AM EDT Procedure [place] [address] 11/01/2023 5:00 PM EDT Office Visit Gastroenterology at [place] [phone] Selene Browning, PhD [facility] [place] [address] 11/22/2023 4:40 PM EDT Office Visit Cardiology at [place] [phone] Porsha Mcdaniels MD [facility] [place] [address] 12/13/2023 10:00 AM EDT Clinical [place] [address] Lucero Romero, [place] [facility] [place] [address] documented as of this encounter Visit Diagnoses Not on filedocumented in this encounter Care Teams Pen And Pencil Repairer Relationship Specialty Start Date End Date Polo Pearce PA [address] [place] [address] PCP - General Internal Medicine 06/09/21 documented as of this encounter
--- OUTSIDE RECORDS SUMMARY | 2023-10-20 20:00 | XMS_ITS | Encounter Summary ---
Author Organization [facility] [place] [address] Care Team Providers Care Vision Rehabilitation Therapist Name Role Phone Tim Rogers DNP Primary Care Provider [phone] Encounter Details Date Type Department Care Team (Late st Contact Info) Description 06/06/2021 [place] [address] Paulo Ramachandran Jr., MD [facility] [place] [address] Social History Tobacco Use Types Packs/Day Years [...] Miscellaneous Notes * Telephone Encounter - Paulo Ramacahndran Jr., MD - 06/06/2021 5:59 PM EDT Contacted by [facility] ED for cardiology consultation. History taking and objective data are per the [facility] ED provider/staff member. Referring Provider: Stuart Iyer MD [address] [place] [address] [place] [address] Indira Roque 51 y.o. w / a [...] pt has been accepted for transfer [place] [facility] [place]. I asked the provider to contact us again if there is change in clinical status. documented in this encounter Plan of Treatment Upcoming Encounters Date Type Department Care Team (Late st Contact Info) Description 10/21/2023 10:30 AM EDT Hospital En[place] [address] Mary Reyes APRN [facility] [place] [address] 10/21/2023 11:30 AM EDT Appointment [place] [address] Mary Reyes APRN [facility] [place] [address] 10/21/2023 12:30 PM EDT Appointment [place] [phone] Mary Reyes [employer] [facility] [place] [address] 10/21/2023 1:30 PM EDT Appointment Nuclear Medicine at [place] [phone] Mary Reyes [facility] [place] [address] 10/21/2023 2:30 PM EDT Appointment [place] [phone] Mary Reyes [facility] [place] [address] 10/26/2023 4:00 PM EDT Office Visit Cardiology at [address] [address] Jaspreet Kinsey MD [facility] [place] [address] 10/28/2023 9:00 AM EDT Office [place] [address] 10/29/2023 10:00 AM EDT Clinical [place] [address] 10/29/2023 10:15 AM EDT Procedure [place] [address] 11/01/2023 5:00 PM EDT Office Visit [place] [phone] Selene Browning, PhD [facility] [place] [address] 11/22/2023 4:40 PM EDT Office Visit Cardiology at [address] [phone] Porsha Mcdaniels MD [facility] [address] 12/13/2023 10:00 AM EDT Clinical Support [place] [phone] [facility] [place] [address] documented as of this encounter Visit Diagnoses Not on filedocumented in this encounter Care Teams Vision Rehabilitation Therapist Relationship Specialty Start Date End Date Tim Rogers DNP PCP - General Family Medicine 08/28/19 06/08/21 documented as of this encounter
--- OUTSIDE RECORDS SUMMARY | 2023-10-20 20:00 | XMS_ITS | Encounter Summary ---
Author Organization [facility] [place] [address] Care Team Providers Care Cigar Tobacco Processing Supervisor Name Role Phone Polo Pearce Primary Care Provider [phone] Encounter Details Date Type Department Care Team (Late st Contact Info) Description 06/13/2021 [place] [address] Ralf Mejia MD [facility] [place] [address] Social History Tobacco Use Types Packs/Day Years [...] Referring provider: Jasiel Caicedo MD Patient location: [facility] Past medical history: HLD HTN Asthma Depression ?Micrvascular disease SVT MARYLOU Diastolic heart failure History 51-year-old female with history as noted above who is just admitted to [facility] for [place] of angina with discharge 06/08/2021. At that time she initially presented to [facility] where she was noted to have a troponin I of 406 which was flat at 411 on repeat and an elevated BNP. EKG showed nonspecific ST changes in the inferolateral leads. She was transferred to [facility] for further evaluation where she underwent a [...] I and her recent work-up here at [facility] which did not include an ischemic evaluation but did include a transesophageal echocardiogramserial EKGs and serial negative troponins that further work-up at [facility] may be appropriate. Suspect that her [...] possible microvascular angina. Plan: -Continue management at [facility]. -Recommend stress test at [facility]. -Start metoprolol succinate 25 mg daily with follow-up with cardiology and up titration. -Continue medications as prescribed from her recent discharge. -Planning to get serial troponins and EKGs. If these are markedly changing can reassess and consider transfer to [facility] for further evaluation. Ralf Mejia MD 06/13/2021 12:05 AM documented in this encounter Plan of Treatment Upcoming Encounters Date Type Department Care Team (Late st Contact Info) Description 10/21/2023 10:30 AM EDT Hospital Encounter [place] [phone] [place] [address] 10/21/2023 11:30 AM EDT Appointment [place] [phone] [place] [address] 10/21/2023 12:30 PM EDT Appointment [place] [phone] [place] [address] 10/21/2023 1:30 PM EDT Appointment [place] [address] Mary Reyes [facility] [place] [place] [address] 10/21/2023 2:30 PM EDT Appointment [place] [address] Mary Reyes [facility] [place] [place] [address] 10/26/2023 4:00 PM EDT Office Visit Cardiology at [address] [place] [phone] Jaspreet Kinsey MD [facility] [place] [address] 10/28/2023 9:00 AM EDT Office Visit [place] [address] 10/29/2023 10:00 AM EDT Clinical Support [place] [address] 10/29/2023 10:15 AM EDT Procedure [place] [address] 11/01/2023 5:00 PM EDT Office [place] [phone] Selene Browning, PhD [facility] [place] [address] 11/22/2023 4:40 PM EDT Office Visit Cardiology at [address] [phone] Porsha Mcdaniels MD [facility] [place] [address] 12/13/2023 10:00 AM EDT Clinical [place] [phone] [facility] [place] [place] [address] documented as of this encounter Visit Diagnoses Not on filedocumented in this encounter Care Teams Cigar Tobacco Processing Supervisor Relationship Specialty Start Date End Date Polo Pearce PA [address] [place] [address] PCP - General Internal Medicine 06/09/21 documented as of this encounter
--- OUTSIDE RECORDS SUMMARY | 2023-10-20 20:00 | XMS_ITS | Encounter Summary ---
Author Organization [facility] [place] [address] Care Team Providers Care Pattern Storage Clerk Name Role Phone Polo Pearce Primary Care Provider [phone] Reason for Referral * Consultation (Routine) - Closed Specialty Diagnoses / Procedures Referred By Contact Referred To Contact Electrophysiology / Cardiology Diagnoses Supraventricular tachycardia evaluation for AVNRT ablation due to symptomatic SVT with myocardial injury Sandy Serna MD [facility] GENERAL [place] [address] [facility] Cardiology [address] [place] [phone] Referral ID Status Reason Start Date Expiration Date V isits Requested Visits Authorized [id number] Closed Consult, Test & Treat 06/14/2021 06/14/2022 1 1 Reason for Visit * Auth/Cert Specialty Diagnoses / Procedures Referred By Jayant harris Referred To Contact Diagnoses NSTEMI (non-ST elevated myocardial infarction) NSTEMI Procedures EMERGENCY IPI Referral ID Status Reason Start Date Expiration Date Visits Re quested Visits Authorized [id number] 1 1 Encounter Details Date Type Department Care Team (Latest Contact Info) Description 06/13/2021 12:35 PM EDT - 06/14/2021 1:22 PM EDT Hospital Encounter [place] [address] Jose Rodrigues MD [facility] [place] [address] Chest pain, unspecified type; Supraventricular tachycardia; Chest [...] depressions on EKG. Indira was transferred to [facility] [place] further evaluation. ?? Of note, the patient was just released from [facility] for chest pain on Wednesday06/09/2021. During that [...] consistent with myocardial injury pattern. [facility] was not pursued as the patient was CP free, has suspected microvascular disease from [facility] 18 months ago and episode was triggered [...] 8:20 AM Jaspreet Kinsey MD Cardiology at [facility] Ar[facility] at: [facility] [address] [phone] Future Orders Complete By Expires NM PET CT Cardiac Pharmacologic Stress and Rest [[id number] Custom] 06/14/2021 10/14/2021 Process Instructions: Scheduling Instructions: Questions: Where will study be performed?: [facility] Radiology Reason for exam and clinical history: concern for microvascular disease vs CAD Clinical information / chavis questions for radiologist: Is the patient ?: No Initial treatment or subsequent treatment?: Stat read required?: Does patient require sedation?: GA rationale: Date of injury if applicable: Requested Time: NM PET CT Cardiac Pharmacologic Stress CT Component [[id number] Custom] 06/14/2021 10/14/2021 Process Instructions: Scheduling Instructions: Questions: Where will study be performed?: [facility] Radiology Reason for exam and clinical history: Study performed for attenuation correction of the stress test. Nuclear Pharmacologic Stress Cardiology (PET CT Mobile) [[id number] CPT(R)] 06/14/2021 10/14/2021 Process Instructions: Order [id number], NM myocardial perfussion scan, pharmacologic, should also be placed for the radiologyportion of the test. Scheduling Instructions: Cardiac perfusion (Stress and Lexiscan) - NPO after midnight, medication instructions per referringphysician. Avoidance of all caffeinated and decaffeinated products (No coffee, teas, chocolate, or cola drinks) for at least 12 hours prior to exam. Questions: Where will study be performed?: [facility] Clinics Does the patient have a device?: [...] Center 07/23/2021 8:20 AM Jaspreet Kinsey MD [facility] Cardio [facility] Your Inpatient Medical Team at [facility] Name(s) of your inpatient provider(s): Attending - Jose Rodrigues MD Fellow - Brody Bernard MD Resident - Sandy Serna MD Keyboard Instrument Repairer - Sha Vale MD Your Primary Care Provider: JOCY Franco [phone] For questions regarding this document or issues relating to this hospitalization on the Medical Service, please contact your inpatient physician through the [facility] Construction Job Titles . Issues afterhours and on weekends will be handled by the Hospitalist staff on-call. For questions regarding this document or issues relating to this hospitalization on the Medical Service, please contact your inpatient physician through the [facility] Job Titles . Issues afterhours and on weekends will be handled by the Custom Shoe Designer [employer] Maker staff on-call. Signed: Sandy Serna Internal Medicine PGY-3 Cardiovascular Medicine S2 Team Pager [phone] documented in this encounter Discharge Instructions * [...] Center 07/23/2021 8:20 AM Jaspreet Kinsey MD [facility] Cardio [facility] Your Inpatient Medical Team at [facility] Name(s) of your inpatient provider(s): Attending - Jose Rodrigues MD Fellow - Brody Bernard MD Resident - Sandy Serna MD Keyboard Instrument Repairer - Sha Vale MD Your Primary Care Provider: JOCY Franco [phone] For questions regarding this document or issues relating to this hospitalization on the Medical Service, please contact your inpatient physician through the [facility] Job Titles . Issues afterhours and on weekends will [...] as needed. fluticasone propionate (FLONASE) 50 mcg/actuation [place], Suspension 1 spray by Each Nare route [...] FORWARD: possible cardiac cath pain management monitor nurse's assistant I/O discharge planning as appropriate INDIVIDUALIZED FALL [...] JOHN PCP: JOCY Franco PCP phone #: [phone] ID/Chief Complaint: Indira Roque is a 51 y.o. with hx of HFpEF, MARYLOU, who is admitted from [facility] with associated chest pain last night [...] depressions on EKG. Indira was transferred to [facility] for further evaluation. Of note, the patient was just released from [facility] for chest pain on Wednesday06/09/2021. During that [...] DAILY ??? fluticasone propionate (FLONASE) 50 mcg/actuation [place], Suspension 1 spray, Each Nare, DAILY ??? [...] ??? Clobetasol Rash Family History: Father from [place] s/p multiple coronary stents at Social History: [...] at coronary flow reserve Jose Rodrigues MD, [facility] Section of Cardiovascular Medicine [facility] Student Teacherprobation supervisor [facility] [facility] documented in this encounter Plan of Treatment Upcoming Encounters Date Type Department Care Team (Late st Contact Info) Description 10/21/2023 10:30 AM EDT Hospital Encounter [place] [phone] Mary Reyes [facility] [place] [address] 10/21/2023 11:30 AM EDT Appointment [place] [phone] Mary Reyes [facility] [place] [address] 10/21/2023 12:30 PM EDT Appointment [place] [phone] Mary Reyes [facility] [place] [address] 10/21/2023 1:30 PM EDT Appointment [place] [phone] Mary Reyes [facility] [place] [address] 10/21/2023 2:30 PM EDT Appointment [place] [phone] Mary Reyes [facility] [place] [address] 10/26/2023 4:00 PM EDT Office Visit Cardiology at [address] [phone] Jaspreet Kinsey MD [facility] [place] [address] 10/28/2023 9:00 AM EDT Office [place] [address] 10/29/2023 10:00 AM EDT Clinical Support [place] [address] 10/29/2023 10:15 AM EDT Procedure visit [place] [address] 11/01/2023 5:00 PM EDT Office [place] [phone] Selene Browning, PhD [facility] [place] [address] 11/22/2023 4:40 PM EDT Office Visit Cardiology at [address] [phone] Porsha Mcdaniels MD [facility] [place] [address] 12/13/2023 10:00 AM EDT Clinical [place] [address] [facility] [place] [address] Scheduled Referrals Name Type Priority Associated Diagnoses [...] 06/14/2021 5:13 AM EDT BASIC METABOLIC PANEL Routine 06/14/2021 5:13 AM EDT HC UNFRACTIONATED [...] 06/13/2021 3:26 PM EDT COMPREHENSIVE METABOLIC PANEL STAT 06/13/2021 3:26 PM EDT EKG 12-LEAD Routine 06/13/2021 2:18 PM EDT Chest pain, unspecified type RAPID COVID-19 PCR ([facility]/APD/[facility]) Routine 06/13/2021 1:09 PM EDT documented in this encounter Results * Magnesium (06/14/2021 5:13 AM EDT) Magnesium 0.90 0.69 - 1.07 mmol/L [facility] Blood Venous Draw / Unknown 06/14/2021 5:13 AM EDT 06/14/2021 5:25 AM EDT Narrative Resulting Agency Comment Spec In Lab Sandy Serna MD CHEMISTRY ORDER ARABELLA [facility] [place] [address] * (ABNORMAL) Troponin (06/14/2021 5:13 AM EDT) [...] meets the diagnosis for a myocardial infarction ([place]). Detection of a rise and/or fall of cTnT, with at least one value greater than the 99th percentile (> or = 0.01) and with at least one of the following ?? Symptoms of ischemia ?? New or presumed new significant MB-uhduvid-S wave (ST-T) changes or new left bundle [...] additional sample may be indicated. Reference: Third [place] Definition of Myocardial Infarction. Journal of the [place] [employer] 2012;60:1581-98 Blood 06/14/2021 5:13 AM EDT 06/14/2021 5:19 AM EDT Narrative Resulting Agency Comment Spec In Lab Jose Rodrigues MD CHEMISTRY ORDERABLES [facility] [place] [address] * Heparin (unfractionated) Level (06/14/2021 5:13 AM EDT) UF Heparin 0.66 IU/mL [facility] Comment: Heparin (anti-Xa) levels should [...] MD HEMATOLOGY ORDERABLE S Performing Organization Address City/[facility]/ZIP Co de Phone Number [facility] [place] [address] * Differential, Automated (06/14/2021 5:13 AM EDT) [facility] Neutrophil % 62.5 % [facility] Neutrophil Absolute 4.36 1.70 - 6.10 x10(3)/[facility]ORAT[facility] Lymph % 24.1 % [facility] Lymphocytes Abs 1.7 0.9 - 3.2 x10(3)/[facility] LABORATORY Monocyte % 9.2 % [facility] Monocyte Abs 0.6 0.3 - 0.9 x10(3)/[facility] LABORATORY Eos % 2.9 % [facility] Eosinophils Abs 0.2 0.0 - 0.4 x10(3)/[facility] LABORATORY Basophil % 1.0 % [facility] Baso Absolute 0.1 0.0 - [...] - 0.04 x10(3)/[facility] Blood 06/14/2021 5:13 AM EDT 06/14/2021 5:19 AM EDT Narrative Resulting Agency Comment Spec In Lab Sha Vale MD HEMATOLOGY ORDERABLE S Performing Organization Address City/[facility]/ZIP Co de Phone Number [facility] [place] [address] * (ABNORMAL) Hemogram (06/14/2021 5:13 AM EDT) [facility] White Blood Cell 7.0 4.0 - 9.5 x10(3)/mc L [facility] Red Blood Cell 4.94 4.00 - 5.21 x10(6)/mc L [facility] Hemoglobin 15.2 11.7 - 15.5 g/dL [facility] Hematocrit 46.5(H) 35.7 - 45.8 % [facility] Mean Cell Volume 94.1 82.6 - 94.4 fL [facility] Mean Cell Hemoglobin 30.8 27.1 - 32.0 pg [facility] Mean Cell Hemoglobin Concentration 32.7 31.7 - 35.0 g/dL [facility] Platelet 252 145 - 357 x10(3)/ L [facility] RDW Standard Deviation 48.5(H) 37.0 - 46.0 fL [facility] RDW coefficient of variation 14.2(H) 11.5 - 14.1 % [facility] Mean Platelet Volume 10.4 7.6 - 12.9 fL [facility] NRBC% auto 0.0 % [facility] NRBC Absolute 0.000 0.000 - 0.000 x10(3)/ L [facility] Blood 06/14/2021 5:13 AM EDT 06/14/2021 5:19 AM EDT Narrative Resulting Agency Comment Spec In Lab Sha Vale MD HEMATOLOGY ORDERABLE S [facility] [place] [address] * (ABNORMAL) Basic Metabolic Panel (non-fasting) (06/14/2021 5:13 AM EDT) [facility] Glucose 98 65 - 199 mg/dL [facility] Comment:Diabetes: >=200 mg/d L plus symptoms Blood Urea Nitrogen 21(H) 8 - 18 mg/dL [facility] [...] - 107 mmol/L [facility] Carbon Dioxide 19(L) 22 - 31 mmol/L [facility] Anion Gap 13 5 - 15 mmol/L [facility] Calcium 9.0 8.5 - 10.5 mg/dL [facility] Est Glomerular Filtration Rate 85 >=60 mL/min/1. 73 m?? [facility] [...] MD CHEMISTRY ORDERABLES [facility] [place] [address] * (ABNORMAL) Troponin (06/13/2021 9:41 PM EDT) [...] meets the diagnosis for a myocardial infarction ([place]). Detection of a rise and/or fall of cTnT, with at least one value greater than the 99th percentile (> or = 0.01) and with at least one of the following ?? Symptoms of ischemia ?? New or presumed new significant MV-dzfnrpz-Z wave (ST-T) changes or new left bundle [...] additional sample may be indicated. Reference: Third [place] Definition of Myocardial Infarction. Journal of the [place] College [employer] Cardiology 2012;60:1581-98 Blood 06/13/2021 9:41 PM EDT 06/13/2021 9:55 PM EDT Narrative Resulting Agency Comment Spec In Lab Jose Rodrigues MD CHEMISTRY ORDERABLES [facility] [place] [address] * Heparin (unfractionated) Level (06/13/2021 9:41 PM EDT) UF Heparin 0.33 IU/mL [facility] Comment: Heparin (anti-Xa) levels should [...] HEMATOLOGY ORDERABLE S [facility] [place] [address] * XR Chest PA & Lateral (Generic) [...] questions please contact the health child care giver that requested your imaging first. ? Narrative [...] is no acute osseous abnormality. Procedure Note Zneaida Tavares MD - 06/14/2021 EXAMINATION: XR CHEST [...] have questions please contactthe health child care giver that requested your imaging first. Electronically signed by: ZENAIDA TAVARES [facility] ([phone]),at 06/14/2021 8:08 AM Jose Rodrigues MD IMG [...] meets the diagnosis for a myocardial infarction ([place]). Detection of a rise and/or fall of cTnT, with at least one value greater than the 99th percentile (> or = 0.01) and with at least one of the following ?? Symptoms of ischemia ?? New or presumed new significant HQ-pfejvto-K wave (ST-T) changes or new left bundle [...] additional sample may be indicated. Reference: Third [place] Definition of Myocardial Infarction. Journal of the [place] [employer]iology 2012;60:1581-98 Blood 06/13/2021 6:40 PM EDT 06/13/2021 6:46 PM EDT Narrative Resulting Agency Comment Spec In Lab Jose Rodrigues MD CHEMISTRY ORDERABLES Performing Organization Address [facility] Co de Phone Number [facility] [place] [address] * T4, free (06/13/2021 3:26 PM EDT) Free T4 1.08 0.93 - 1.70 ng/dL [facility] Comment: Reference Interval (ng/dL): Females: ??First Trimester: 0.97-1.68 ??Second Trimester: 0.77-1.51 ??Third Trimester: 0.77-1.49 Blood 06/13/2021 3:26 PM EDT 06/13/2021 3:52 PM EDT Narrative Resulting Agency Comment Spec In Lab Sha Vale MD CHEMISTRY ORDERABLES Performing Organization Address [facility] Co de Phone Number [facility] [place] [address] * Heparin (unfractionated) Level (06/13/2021 3:26 PM EDT) UF Heparin <0.04 IU/mL [facility] Comment: Specimen drawn more than [...] HEMATOLOGY ORDERABLE S Performing Organization Address [facility] Co de Phone Number [facility] [place] [address] * Bilirubin, Direct (06/13/2021 3:26 PM EDT) Bilirubin, Direct 0.1 0.0 - 0.3 mg/dL [facility] Blood Venous Draw / Unknown 06/13/2021 3:26 PM EDT 06/13/2021 3:39 PM EDT Narrative Resulting Agency Comment Spec In Lab Sha Vale MD CHEMISTRY ORDERABLES Performing Organization Address [facility] Co de Phone Number [facility] [place] [address] * (ABNORMAL) Comprehensive metabolic panel (non-fasting) (06/13/2021 3:26 PM EDT) Glucose 77 65 - 199 mg/dL [facility] Comment:Diabetes: >=200 mg/d L plus symptoms Blood Urea Nitrogen 20(H) 8 - 18 mg/dL [facility] [...] - 107 mmol/L [facility] Carbon Dioxide 17(L) 22 - 31 mmol/L [facility] Anion Gap 18(H) 5 - 15 mmol/L [facility] Calcium 9.2 8.5 - 10.5 mg/dL [facility] Protein, Total 7.4 6.1 - 8.0 g/dL [facility] Albumin 4.0 3.2 - 5.2 g/dL [facility] Aspartate Aminotransferase 44(H) 0 - 30 unit/L [facility] Alanine Aminotransferase 31(H) 0 - 30 unit/L [facility] Alkaline Phosphatase 70 35 - 105 unit/L [facility] Bilirubin, Total 0.4 0.2 - 1.3 mg/dL [facility] Est Glomerular Filtration Rate 76 >=60 mL/min/1. 73 m?? [facility] [...] In Lab Sha Vale MD CHEMISTRY ORDERABLES [facility] [place] [address] * (ABNORMAL) pro-Brain Natriuretic Peptide (06/13/2021 3:26 PM EDT) NT-proBNP 2,479(H) <=124 pg/mL [facility] Blood Venous Draw / Unknown 06/13/2021 3:26 PM EDT 06/13/2021 3:39 PM EDT Narrative Resulting Agency Comment Spec In Lab Sha Vale MD CHEMISTRY ORDERABLES Performing Organization Address City/[facility] Co de Phone Number [facility] [place] [address] * Magnesium (06/13/2021 3:26 PM EDT) Magnesium 0.93 0.69 - 1.07 mmol/L [facility] Blood Venous Draw / Unknown 06/13/2021 3:26 PM EDT 06/13/2021 3:39 PM EDT Narrative Resulting Agency Comment Spec In Lab Sha Vale MD CHEMISTRY ORDERABLES Performing Organization Address [facility] Co de Phone Number [facility] [place] [address] * Phosphorus (06/13/2021 3:26 PM EDT) Phosphorus 3.6 2.5 - 4.5 mg/dL [facility] Blood Venous Draw / Unknown 06/13/2021 3:26 PM EDT 06/13/2021 3:39 PM EDT Narrative Resulting Agency Comment Spec In Lab Sha Vale MD CHEMISTRY ORDERABLES Performing Organization Address [facility] Co de Phone Number [facility] [place] [address] * APTT (06/13/2021 3:26 PM EDT) Partial Thromboplastin Time 29 25 - 37 sec [facility] Comment: The PTT is NOT appropriate for heparin monitoring. Use the Anti-Xa level for heparin monitoring (HEP UFH) or LMWH monitoring (HEP LMW). A PTT less than 37 seconds generally indicates adequate hemostasis. Blood 06/13/2021 3:26 PM EDT 06/13/2021 3:36 PM EDT Narrative Resulting Agency Comment Spec In Lab oJse Rodrigues MD HEMATOLOGY ORDERABLE S Performing Organization Address City/[facility] Co de Phone Number [facility] [place] [address] * Prothrombin Time (06/13/2021 3:26 PM EDT) Prothrombin Time 12.4 9.4 - 12.5 sec [facility] International Normalization Ratio 1.1 [facility] Comment: An INR [...] HEMATOLOGY ORDERABLE S Performing Organization Address [facility] Co de Phone Number [facility] [place] [address] * (ABNORMAL) TSH [place] (06/13/2021 3:26 PM EDT) Thyroid Stimulating Hormone 6.47(H) 0.27 - 4.20 mcIU/mL [facility] Comment: Reference Interval (mcIU/mL): Females: ??First Trimester: 0.23-3.88 ??Second Trimester: 0.22-3.90 ??Third Trimester: 0.44-4.66 Blood 06/13/2021 3:26 PM EDT 06/13/2021 3:37 PM EDT Narrative Resulting Agency Comment Spec In Lab Jose Rodrigues MD CHEMISTRY ORDERABLES Performing Organization Address [facility] Co de Phone Number [facility] [place] [address] * Differential, Automated (06/13/2021 3:26 PM EDT) Pathologist [facility] Neutrophil % 64.4 % [facility] Neutrophil Absolute 4.05 1.70 - 6.10 x10(3)/[facility] Lymph % 22.6 % [facility] Lymphocytes Abs 1.4 0.9 - 3.2 x10(3)/[facility] Monocyte % 10.0 % [facility] Monocyte Abs 0.6 0.3 - 0.9 x10(3)/[facility] Eos % 1.8 % [facility] Eosinophils Abs 0.1 0.0 - 0.4 x10(3)/[facility] Basophil % 1.0 % [facility] Baso Absolute 0.1 0.0 - [...] - 0.04 x10(3)/[facility] Blood 06/13/2021 3:26 PM EDT 06/13/2021 3:37 PM EDT Narrative Resulting Agency Comment Spec In Lab Sha Vale MD HEMATOLOGY ORDERABLE S [facility] [place] [address] * (ABNORMAL) Hemogram (06/13/2021 3:26 PM EDT) White Blood Cell 6.3 4.0 - 9.5 x10(3)/[facility] Red Blood Cell 5.27(H) 4.00 - 5.21 x10(6)/mc L [facility] Hemoglobin 16.1(H) 11.7 - 15.5 g/dL [facility] Hematocrit 49.7(H) 35.7 - 45.8 % [facility] Mean Cell Volume 94.3 82.6 - 94.4 fL [facility] Mean Cell Hemoglobin 30.6 27.1 - 32.0 pg [facility] Mean Cell Hemoglobin Concentration 32.4 31.7 - 35.0 g/dL [facility] Platelet 237 145 - 357 x10(3)/mc L [facility] RDW Standard Deviation 49.1(H) 37.0 - 46.0 fL [facility] RDW coefficient of variation 14.2(H) 11.5 - 14.1 % [facility] Mean Platelet Volume 11.3 7.6 - 12.9 fL [facility] NRBC% auto 0.0 % [facility] NRBC Absolute 0.000 0.000 - 0.000 x10(3)/mc L [facility] Blood 06/13/2021 3:26 PM EDT 06/13/2021 3:37 PM EDT Narrative Resulting Agency Comment Spec In Lab Sha Vale MD HEMATOLOGY ORDERABLE S [facility] [place] [address] * (ABNORMAL) Troponin (06/13/2021 3:26 PM EDT) Troponin-T 0.04(H) 0.00 - 0.00 ng/mL [facility] Comment: The 99th percentile for Troponin T is less than 0.01 ng/mL, any detectable cTnT concentration using this assay should be considered elevated. According to the third universal definition of myocardial infarction the following criteria with a clinical presentation consistent with acute myocardial ischemia meets the diagnosis for a myocardial infarction ([place]). Detection of a rise and/or fall of cTnT, with at least one value greater than the 99th percentile (> or = 0.01) and with at least one of the following ?? Symptoms of ischemia ?? New or presumed new significant DK-vaprmpo-M wave (ST-T) changes or new left bundle [...] additional sample may be indicated. Reference: Third [place] Definition of Myocardial Infarction. Journal of the [place] [employer] 2012;60:1581-98 Blood 06/13/2021 3:26 PM EDT 06/13/2021 3:37 PM EDT Narrative Resulting Agency Comment Spec In Lab Jose Rodrigues MD CHEMISTRY ORDERABLES [facility] [place] [address] * EKG 12 Lead (06/13/2021 2:18 PM EDT) Ventricular rate 48 BPM MUSE SYSTEM Atrial Rate 48 BPM MUSE SYSTEM P-R Interval 196 ms MUSE SYSTEM QRS Duration 84 ms MUSE SYSTEM Q-T Interval 498 ms MUSE SYSTEM QTC Calculated (Bezet) 444 ms MUSE SYSTEM Calculated P Schwertner 1 degrees MUSE SYSTEM Calculated R Schwertner 27 degrees MUSE SYSTEM Calculated T Schwertner -27 degrees MUSE SYSTEM INTERPRETATION Sinus bradycardia Nonspecific ST and T wave abnormality Abnormal ECG When compared with ECG of 07-JUN-2021 16:33, No significant change was found I personally reviewed the tracing and edited the fellows interpretation Confirmed by fellow Jaspreet Grimm ([id number]) on 06/16/2021 1:34:45 PM Confirmed by MD Angelo Danette ([id number]) on 06/16/2021 1:39:20 PM MUSE SYSTEM 06/13/2021 2:18 PM EDT 06/16/2021 1:39 PM EDT Jose Rodrigues MD ECG ORDERABLES MUSE SYSTEM * COVID-19 PCR (06/13/2021 1:09 PM EDT) SARS-CoV-2 RNA (Rapid) Not Detected Not Detected [facility] [...] diagnosis of COVID-19 is performed using the GT Nexusa COVID-19 Direct Assay by Idea Device as authorized by the FDA issued Emergency [...] of Pathology and Laboratory Medicine at [facility], certified under the Clinical Laboratory Improvement [...] fact sheets at the following FDA website: https://www.fda.gov/medical-devices/vbzkesagpus-qnfezoc-3910-kaqeh-01-taewddzav- use-a blebhbxzoyhjc-zdnpvtw-uelypiw/ntgga-ozykfnidbou-hymb SARS-CoV-2 Source SENIOR EXAMINER Swab MA RY [facility] Nasopharyngeal Swab 06/14/19 1:09 PM EDT 06/13/2021 1:45 PM EDT Comment:Symptoms->Surveillan ce Narrative Resulting Agency Comment Spec In Lab Jose Rodrigues MD MICROBIOLOGY - GENER AL ORDERABLES Performing Organization Address City/State/[facility] Co de Phone Number [facility] [place] [address] documented in this encounter Visit Diagnoses Diagnosis [...] PRN, Starting on Wed06/13/21 at 1345, Until Wed06/14/21 at 1522, flush, Flush pertains to all [...] 2056 (Given - Provider: Dee Raymond RN) 1022 (Given - Provider: Katalina Wilkinson RN - Comment: okayed w/ peovider) rOPINIRole (Requip) tablet 2 mg 2 mg, Oral, NIGHTLY, First dose (after last modification) on Wed06/13/21 at 2100, Until Discontinued, Routine 2100 (Given - Provider: Dee Raymond RN) sodium chloride 0.9 % (flush) (BD PosiFlush Normal Saline 0.9) flush 5 mL 5 mL, Intravenous, 2 TIMES DAILY, First dose on Wed06/13/21 at 1445, Until Discontinued, Routine 141 (Given - Provider: Katalina Wilkinson RN)2101 (Given [...] Intravenous, BOLUS PER HEPARIN PROTOCOL, Starting on 06/13/21 at 1431, Until 06/14/21 at 0917, Per [...] Routine documented in this encounter Care Teams Pattern Storage Clerk Relationship Specialty Start Date End Date Polo Pearce PA [address] [place] [address] PCP - General Internal Medicine 06/09/21 documented as of this encounter
--- OUTSIDE RECORDS SUMMARY | 2023-10-20 20:00 | XMS_ITS | Encounter Summary ---
[place] [address] Care Team Providers Care Nurse Discharge Name Role Phone Polo Pearce Primary Care Provider [phone] Reason for Visit * Reason Onset Date Comments Medication Refill 06/10/2021 Jardiance Encounter Details Date Type Department Care Team (Late st Contact Info) Description 06/10/2021 Refill Cardiology at [address] [phone] Deja Zaidi PA [facility] [place] [address] Medication Refill (Jardiance) Social History Tobacco Use [...] AM EDT Hospital Encounter [place] [phone] Mary Reyes APRN [facility] [place] [address] 10/21/2023 11:30 AM EDT Appointment [place] [phone] [place] [address] 10/21/2023 12:30 PM EDT Appointment [place] [phone] [place] [address] 10/21/2023 1:30 PM EDT Appointment [place] [phone] [place] [address] 10/21/2023 2:30 PM EDT Appointment [place] [address] [place] [address] 10/26/2023 4:00 PM EDT Office Visit Cardiology at [address] [phone] Jaspreet Kinsey MD [facility] [place] [address] 10/28/2023 9:00 AM EDT Office [place] [address] 10/29/2023 10:00 AM EDT Clinical [place] [address] 10/29/2023 10:15 AM EDT Procedure [place] [address] 11/01/2023 5:00 PM EDT Office Visit Gastroenterology at [place] [phone] Selene Browning, PhD [facility] [place] [address] 11/22/2023 4:40 PM EDT Office [place] [address] Porsha Mcdaniels MD [facility] [place] [address] 12/13/2023 10:00 AM EDT Clinical Support [place] [phone] Lucero Romero, [place] [facility] [place] [address] documented as of this encounter Visit Diagnoses Diagnosis Chronic heart failure with preserved ejection fraction documented in this encounter Care Teams Nurse Discharge Relationship Specialty Start Date End Date Polo Pearce PA [address] [place] [address] PCP - General Internal Medicine 06/09/21 documented as of this encounter
--- OUTSIDE RECORDS SUMMARY | 2023-10-20 20:00 | XMS_ITS | Encounter Summary ---
[place] [address] Care Team Providers Care Dump Operator Name Role Phone Polo Pearce Primary Care Provider [phone] Encounter Details Date Type Department Care Team (Late st Contact Info) Description 06/12/2021 External Results [place] [phone] Social History Tobacco Use Types Packs/Day Years [...] Hospital Encounter [place] [address] Mary Reyes APRN [facility] [place] [address] 10/21/2023 11:30 AM EDT Appointment [place] [phone] Mary Reyes CONTINUOUS DRYOUT OPERATOR HELPER [facility] [place] [address] 10/21/2023 12:30 PM EDT Appointment [place] [address] [place] [address] 10/21/2023 1:30 PM EDT Appointment [place] [address] [place] [address] 10/21/2023 2:30 PM EDT Appointment [place] [address] Mary Reyes [facility] [place] [address] 10/26/2023 4:00 PM EDT Office Visit Cardiology at [address] [phone] Jaspreet Kinsey MD [facility] [place] [address] 10/28/2023 9:00 AM EDT Office Visit [place] [address] 10/29/2023 10:00 AM EDT Clinical Support [place] [address] 10/29/2023 10:15 AM EDT Procedure visit [place] [address] 11/01/2023 5:00 PM EDT Office Visit Gastroenterology at [place] [phone] Selene Browning, PhD [facility] [address] 11/22/2023 4:40 PM EDT Office Visit Cardiology at [address] Porsha Mcdaniels MD [facility] [place] [address] 12/13/2023 10:00 AM EDT Clinical Support Gastroenterology at [address] Lucero Romero, [place] [facility] [place] [address] documented as of this encounter Procedures Procedure Name Priority Date/Time Associated Diagnosis Comments ECG SCAN Routine 06/12/2021 documented in this encounter Results * Scan Doc: ECG (06/12/2021) Historical Provider MD FLEMING MGTalia SCAN EX T ORDR/RSLT documented in this encounter Visit Diagnoses Not on filedocumented in this encounter Care Teams Dump Operator Relationship Specialty Start Date End Date Polo Pearce PA [address] [place] [address] PCP - General Internal Medicine 06/09/21 documented as of this encounter
--- OUTSIDE RECORDS SUMMARY | 2023-10-20 20:00 | XMS_ITS | Encounter Summary ---
Author Organization [facility] [place] [address] Care Team Providers Care Manager Life Sciences Name Role Phone Polo Pearce Primary Care Provider [phone] Encounter Details Date Type Department Care Team (Late st Contact Info) Description 06/11/2021 Telephone Cardiology at [address] [phone] Deja Zaidi PA [facility] [place] [address] Social History Tobacco Use Types Packs/Day Years [...] JOCY Hernandez 06/11/2021 JOCY Hernandez 06/11/2021 Pager [phone] documented in this encounter Plan of Treatment Upcoming Encounters Date Type Department Care Team (Late st Contact Info) Description 10/21/2023 10:30 AM EDT Hospital Encounter [place] [phone] Mary Reyes [facility] [place] [address] 10/21/2023 11:30 AM EDT Appointment [place] [address] Mary Reyes [facility] [place] [address] 10/21/2023 12:30 PM EDT Appointment [place] [address] Mary Reyes [facility] [place] [address] 10/21/2023 1:30 PM EDT Appointment [place] [address] Mary Reyes [facility] [place] [address] 10/21/2023 2:30 PM EDT Appointment [place] [address] Mary Reyes [facility] [place] [address] 10/26/2023 4:00 PM EDT Office Visit Cardiology at [address] [phone] Jaspreet Kinsey MD [facility] [place] [address] 10/28/2023 9:00 AM EDT Office Visit [place] [address] 10/29/2023 10:00 AM EDT Clinical Support [place] [address] 10/29/2023 10:15 AM EDT Procedure visit [place] [address] 11/01/2023 5:00 PM EDT Office Visit Gastroenterology at [place] [phone] Selene Browning, PhD [facility] [place] [address] 11/22/2023 4:40 PM EDT Office Visit Cardiology at [place] [phone] Porsha Mcdaniels MD [facility] [place] [address] 12/13/2023 10:00 AM EDT Clinical Support G[place] [phone] [facility] [place] [address] documented as of this encounter Visit Diagnoses Not on filedocumented in this encounter Care Teams Manager Life Sciences Relationship Specialty Start Date End Date Polo Pearce PA [address] [place] [address] PCP - General Internal Medicine 06/09/21 documented as of this encounter
--- OUTSIDE RECORDS SUMMARY | 2023-10-20 20:01 | XMS_ITS | Encounter Summary ---
Author Organization Formerly [facility] [place] [address] Care Team Providers Care Vehicle Sales Professional Name Role Phone Tim Rogers DNP Primary Care Provider [phone] Reason for Visit * Auth/Cert Specialty Diagnoses / Procedures Referred By Jayant harris Referred To Contact Diagnoses NSTEMI (non-ST elevated myocardial infarction) NSTEMI Procedures EMERGNECY IPI Referral ID Status Reason Start Date Expiration Date Visits Re quested Visits Authorized [id number] 1 1 Encounter Details Date Type Department Care Team (Latest Contact Info) Description 08/29/2019 2:38 PM EDT - 08/31/2019 6:24 PM EDT Hospital Encounter Intermediate [place] [phone] Manish Benitez MD [facility] [place] [address] Non-ST elevation myocardial infarction (NSTEMI); SOB (shortness [...] this encounter Discharge Summaries * Natalia Urbina, FULL STACK ENGINEER - 08/30/2019 5:18 PM EDT Images from the original note were not included. Discharge Summary Patient Name: Loida Roque Patient Age: 49 y.o. Language: Central African Race: White Ethnicity: Not nor Admit date: [...] cough. Inpatient Provider Contact Information: MD Abeba Chváez PA-C Discharge Diagnoses (Hospital Problems) and Secondary [...] pain overnight ~3 weeksago concerning for missed ID. ??In the ED, her EKG was abnormal [...] follow-up visit please call one of the lye peel operator on Wednesday-Wednesday between the hours of 8A- 5PM. Cardiology Clinic number @ [phone] If off hours contact the cardiac fellow on- call. Hospital Woodworking Bench Carpenter can help you. Hospital phone number [phone] Return to work: In 1 week Drivin hours post catheterization Follow up Appointments: Doctor Where Phone # Date Time oBuchra Frias APRN [address] / [facility] [id number] 09/13/19 8:30 Discharge References/Attachments None Discussed with MD Natalia Lira APRN Pager [phone] 08/31/2019 documented in this encounter Discharge Instructions * Discharge Instructions* Natalia Urbina APRN - 08/31/2019 3:54 PM EDT Call your doctor if: Chest pain, dyspnea, pain or swelling in legs occurs. If you have non-emergent questions, prior to your follow-up visit please call one of the lye peel operator on Wednesday-Wednesday between the hours of 8A- 5PM. Cardiology Clinic number @ [phone] If off hours contact the cardiac fellow on- call. Hospital Woodworking Bench Carpenter can help you. Hospital phone number [phone] Return to work: In 1 week Drivin hours post catheterization Follow up Appointments: Doctor Where Phone # Date Time Bouchra Frias APRN [address] / [facility] [id number] 09/13/19 8:30 * Attachments The following attachments cannot be sent through Care Everywhere. * Cardiac Catheterization: Left (Central African) documented in this encounter Medications at Time of Discharge Medication Sig Dispensed Refills Start Date End Date fluticasone propionate (FLONASE) 50 mcg/actuation Maspeth, Suspension 1 spray by Each Nare route [...] Spirometry Patient Loida Roque 49 y.o. 1970 [id number] Spirometry Spirometry performed successfully. Waiting for read [...] Pt wheeled out of the unit with CONTROL INSPECTOR. * Leonardo Jolly - 08/31/2019 12:25 PM EDT Nutrition Services Note - Low Nutrition Acuity Loida Roque is a 49 y.o. female Reason for intervention: education [facility] [place] NA Nutrition Plan: Patient states that [...] Choices/Cardiac diet ([facility]-Diet) Frequency: Effective Now Number of Occurrences: Until [...] in the interim. Leonardo Marina Jolly Pager: [phone] * Manish Benitez MD - 08/31/2019 9:33 AM EDT Images from the original note were not included. Inpatient Cardiology Progress Note Patient Name: Loida Roque Service: ACID REGENERATOR / PA Responsible Attending: Manish Benitez MD [...] See remainder of report for additional findings. [facility] 08/29 Preliminary findings: Right dominant Normal coronary [...] overnight ~3 weeks ago concerning for missed ID. ??In the ED, her EKG was abnormal with diffuse STTW abnormalities but unchanged from prior EKG in 200 7.?Troponin??I??positive at 0.25 (ULN 0.06). ??Vitals stable and patient asymptomatic at rest. ??DDimer positive at 1037 thus??CT-PE protocol??completed. ??No PE or acute aortic pathology. ??She is transferred for further work up of NSTEMI. ??EF 62% and no wall motions seen on echo. [facility] with normal cors and LVEDP 15. Will [...] Echo with EF 62% and no [facility] with normal cors A1C 5.4% Bedside PFTs today ?? FULL CODE Discussed with Manish Benitez MD Natalia Urbina, ROM Pager [phone] 08/31/2019 Cardiology Attending Note I interviewed and examined the patient during comprehensive bedside rounds. I concur with the summary of interval events, active hospital-focused problem list and plan of care as described in the note below. I personally reviewed the medications, laboratory results, treatment decisions and updated the patient. Manish Benitez MD, FACP, FAC Section of Cardiovascular Medicine [facility] Zipper Setterplow mechanic [facility] [employer] [facility] This patient meets or has met [...] Progress Note Patient Name: Loida Roque Service: ACID REGENERATOR / PA Responsible Attending: Manish Benitez MD [...] overnight ~3 weeks ago concerning for missed ID. 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 fluticasone propionate (FLONASE) 50 mcg/actuation Maspeth, Suspension 1 spray by Each Nare route [...] overnight ~3 weeks ago concerning for missed ID. In the ED, her EKG was abnormal with diffuse STTW abnormalities but unchanged from prior EKG in 2006. Troponin I positive at 0.25 (ULN 0.06). Vitals stable and patient asymptomatic at rest. DDimer positive [id number]-PE protocol completed. No PE or acute aortic pathology. She is transferred for furtherwork up of NSTEMI. Plan Echo and coronary angiography. TREATMENT PLAN: #NSTEMI Admit to cardiology Trend troponin - 1st negative at [facility] ProBNP 1242; Admit weight 207 lbs; Lasix [...] MD, FACP, FACC Section of Cardiovascular Medicine [facility] Zipper Setterplow mechanic [facility] This patient meets or has met [...] Primary care provider on file: Tim Rogers, FULL STACK ENGINEER [phone] Advance Directive on file and Code Status: Full Code Patient???s Functional Status: Independent w/o device Living Situation: lives with Boby Roque (Spouse) [phone] (M) at [address] [place] [address] Supports: Boby, Mother son and daughter Assessment: Patient with no apparent RNCM/SW needs at this time. No housing, transportation, insurance, resources concerns identified at this time. Supports in place to achieve a safe post-hospital transition. No identified barriers to accessing necessary care and/or follow-up after discharge. Plan: Patient to d/c to home when medically ready. telesales supervisor/Rehabilitation Counsellor will continue to follow patient???s progress and remain available if situation changes for coordination of care, psychosocial support and/or discharge planning. Angela Loving RN * Brief Op Note - Jessee Malone MD - 08/30/2019 2:31 PM EDT Preliminary Cardiac Catheterization Procedure Note: Patient Name: Loida Roque : [id number] MR#: [id number] Case Date: 08/30/2019 Woodworking Bench Carpenter: Surgeon(s) and Role: * Jessee Malone MD - Primary * Luis Tatum PA - Fellow Preoperative diagnosis: ?CAD Postoperative diagnosis: * CAD * Procedure(s) performed: [facility] Coronary angio Access: Right radial A time-out [...] for further details. JOCY Montaño 08/30/2019 Pager [phone] * Plan of Care - Efrain Verma [...] AM EDT Hospital Encounter [place] [address] Mary [place] [address] 10/21/2023 11:30 AM EDT Appointment [place] [address] [place] [address] 10/21/2023 12:30 PM EDT Appointment [place] [phone] [place] [address] 10/21/2023 1:30 PM EDT Appointment [place] [address] [place] [address] 10/21/2023 2:30 PM EDT Appointment [place] [address] [place] [address] 10/26/2023 4:00 PM EDT Office Visit Cardiology at [address] [phone] Jaspreet Kinsey MD [facility] [place] [address] 10/28/2023 9:00 AM EDT Office [place] [address] 10/29/2023 10:00 AM EDT Clinical Support [place] [address] 10/29/2023 10:15 AM EDT Procedure visit [place] [address] 11/01/2023 5:00 PM EDT Office [place] [phone] Selene Browning, PhD [facility] [place] [address] 11/22/2023 4:40 PM EDT Office Visit Cardiology at [address] [phone] Porsha Mcdaniels MD [facility] [place] [address] 12/13/2023 10:00 AM EDT Clinical [place] [address] Lucero Romero, ALVA [facility] [place] [address] documented as of this encounter Procedures Procedure Name Priority Date/Time Associated Diagnosis Comments BEDSIDE SPIROMETRY W/O BRONCHODIALATOR Routine 08/31/2019 6:24 PM EDT SOB (shortness of breath) EKG 12-LEAD Routine 08/31/2019 7:05 AM EDT Non-ST elevation myocardial infarction (NSTEMI) HC VENIPUNCTURE Routine 08/31/2019 4:12 AM EDT HEMOGRAM Routine 08/31/2019 4:12 AM EDT DIFFERENTIAL, AUTOMATED Routine 08/31/19 4:12 AM EDT HC CBC,PLT & AUTO [...] 8:30 PM EDT DIFFERENTIAL, AUTOMATED Routine 08/29/19 8:30 PM EDT HC CBC,PLT & AUTO [...] WITHOUT bronchodialator (08/31/2019 6:24 PM EDT) Narrative Zeo Morocho MD - 08/31/2019 6:24 PM EDT Zoe Morocho MD ? 09/04/2019 ??3:14 PM Pulmonary Function Test Interpretation FEV1 is normal. FVC is reduced. ??The FEV1/FVC ratio is normal. 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%) Zoe Morocho MD Natalia E Mesa FULL STACK ENGINEER PFT ORDERABLES * EKG 12 Lead (08/31/2019 7:05 AM EDT) Ventricular rate 51 BPM MUSE SYSTEM Atrial Rate 51 BPM MUSE SYSTEM P-R Interval 186 ms MUSE SYSTEM QRS Duration 82 ms MUSE SYSTEM Q-T Interval 546 ms MUSE SYSTEM QTC Calculated (Bezet) 503 ms MUSE SYSTEM Calculated P Mickleton 18 degrees MUSE SYSTEM Calculated R Mickleton 52 degrees MUSE SYSTEM Calculated T Mickleton 13 degrees MUSE SYSTEM INTERPRETATION Sinus bradycardia [...] (ABNORMAL) Differential, Automated (08/31/2019 4:12 AM EDT) Neutrophil % 45.2 % [facility] Neutrophil Absolute 2.73 1.70 - 6.10 x10(3)/mc L [facility] Lymph % 34.8 % [facility] Lymphocytes Abs 2.1 0.9 - 3.2 x10(3)/mc L [facility] Monocyte % 10.1 % [facility] Monocyte Abs 0.6 0.3 - 0.9 x10(3)/mc L [facility] Eos % 8.9 % [facility] Eosinophils Abs 0.5(H) 0.0 - 0.4 x10(3)/mc L [facility] Basophil % 0.8 % [facility] Baso Absolute 0.0 0.0 - 0.1 x10(3)/mc L [facility] Immature Gran % 0.20 % [facility] Comment: Immature granulocytes(IG's)percentage and absolute count will include metamyelocytes, myelocytes, and promyelocytes. Blood smears from CBCs yielding IG's will be scanned manually for concordance. If this scan disagrees with the automated IG or if promyelocytes are noted, a manual differential will be performed. Immature Gran Absolute 0.01 0.00 - 0.04 x10(3)/mc L [facility] Blood specimen (specimen) 08/31/2019 4:12 AM EDT 08/31/2019 4:29 AM EDT Narrative Resulting Agency Comment Spec In Lab Abeba SANDRA HEMATOLOGY ORDERABLE S [facility] [place] [address] * (ABNORMAL) Hemogram (08/31/2019 4:12 AM EDT) White Blood Cell 6.0 4.0 - 9.5 x10(3)/mc L [facility] Red Blood Cell 5.08 4.00 - 5.21 x10(6)/mc L [facility] Hemoglobin 15.7(H) 11.7 - 15.5 gm/dL [facility] Hematocrit 47.0(H) 35.7 - 45.8 % [facility] Mean Cell Volume 92.5 82.6 - 94.4 fL [facility] Mean Cell Hemoglobin 30.9 27.1 - 32.0 pg [facility] Mean Cell Hemoglobin Concentration 33.4 31.7 - 35.0 gm/dL [facility] Platelet 255 145 - 357 x10(3)/mc L [facility] RDW Standard Deviation 45.3 37.0 - 46.0 [facility] RDW coefficient of variation 13.2 11.5 - 14.1 % [facility] Mean Platelet Volume 11.4 7.6 - 12.9 fL [facility] NRBC% auto 0.0 % [facility] NRBC Absolute 0.000 0.000 - 0.000 x10(3)/mc L [facility] Blood specimen (specimen) 08/31/2019 4:12 AM EDT 08/31/2019 4:29 AM EDT Narrative Resulting Agency Comment Spec In Lab Abeba SANDRA HEMATOLOGY ORDERABLE S Performing Organization Address [facility] [address]/[facility] Co de Phone Number [facility] [place] [address] * Magnesium (08/31/2019 4:12 AM EDT) Magnesium 0.92 0.69 - 1.07 mmol/L [facility] Blood specimen (specimen) 08/31/2019 4:12 AM EDT 08/31/2019 4:29 AM EDT Narrative Resulting Agency Comment Spec In Lab Manish Benitez MD CHEMISTRY ORDERABL ES Performing Organization Address [facility] [address]/[facility] de Phone Number [facility] [place] [address] * (ABNORMAL) BMP w/fasting Glucose (08/31/2019 4:12 [...] of Diabetes Mellitus, Position Statement from the [place] [employer]. ??Diabetes Care, Volume 33, Supplement 1, Mar 2009 Blood Urea Nitrogen 21(H) 8 - 18 mg/dL [facility] [...] 98 - 107 mmol/L [facility] Carbon Dioxide 18(L) 22 - 31 mmol/L [facility] Anion Gap 13 5 - 15 mmol/L [facility] Calcium 9.4 8.5 - 10.5 mg/dL [facility] Est Glomerular Filtration Rate 74 >=60 mL/min/1. 73 m?? [facility] Comment: The eGFR was calculated using the CKD-EPI equation. As with all creatinine based estimates of kidney function, eGFR values calculated with the CKD-EPI equation are not accurate in patients with acute kidney failure, extremes of body mass or the acutely ill. http://Nexstim/[facility] eGFR 85 >=60 mL/min/1. 73 m?? [facility] Comment: The eGFR was calculated using the CKD-EPI equation. As with all creatinine based estimates of kidney function, eGFR values calculated with the CKD-EPI equation are not accurate in patients with acute kidney failure, extremes of body mass or the acutely ill. http://Nexstim/[facility] Blood specimen (specimen) 08/31/2019 4:12 AM EDT 08/31/2019 4:29 AM EDT Narrative Resulting Agency Comment Spec In Lab Manish Benitez MD CHEMISTRY ORDERABL ES [facility] [place] [address] * CARDIAC CATHETERIZATION (08/30/2019 2:40 PM EDT) Anatomical Region Laterality Modality Other Narrative 08/30/2019 2:59 PM EDT ?[facility] ? Cardiac Catheterization/Intervention Report ? Patient Name: Neisha, Loida ? Procedure Date: 08/30/2019 ? A #: [id number] ? Primary Physician: Jessee Malone ? Case #: [id number] ? File Name: [id number] ? Catheterization Order Number: [id number] ? [facility] ? Final Report [place], [place] ? Patient Name: ? Loida Neisha ? ID#: ?[id number] ? : ?1970 ? Procedure Date: ? August 30, 2019 ?Case #: ? [id number] ? Room: ? 5 ? Case Physician: ? Jessee Malone, M.D. ?Start: ?14:11 ? Admission: ??08/29/2019 ? [...] procedure was Urgent. The indication for ?the label machine operator visit is ACS less than or equal [...] angiography and left heart ?catheterization. ? Jessee Malone, M.D. ? Electronically Signed by: Jessee Malone, M.D. ? Report Finalized: 08/30/2019 ??14:56 ? Procedure Note Jessee Malone MD - 08/30/2019 [facility] Cardiac Catheterization/Intervention Report Patient Name: Loida Roque Procedure Date: 08/30/2019 A #: [id number] Primary Physician: Jessee Malone Case #: [id number] File Name: [id number] Catheterization Order Number: [id number] [facility] FinalReport [place], [place] Patient Name: Loida Roque ID#:[id number] :1970 Procedure Date: August 30, 2019 Case [...] was designated as ASA Class III. The [facility] clinical frailtyscale is 2: Well. Diagnostic Tests: Prior Coronary Angiography: LV ejection fraction within 6 months is 65%. Medications Prior to Procedure: Aspirin. Indications for Diagnostic Cath: The priority of the diagnostic procedure was Urgent. The indicationfor the label machine operator visit is ACS less than or equal [...] CONTRAST (08/30/2019 12:23 PM EDT) EF 62 HEARTcFares SYSTEM Anatomical Region Laterality Modality Other 08/30/2019 Narrative 08/30/2019 2:22 PM EDT Procedure: ?Transthoracic Echocardiogram Patient: ?NEISHA LOIDA ?(Age): 1970(49y) Med Rec#: ? [id number] ?Sex: ?F ? Site Loc: ? [facility] ?Ht / Wt: ??163(cm)/94(kg) Pt. Loc: ?Adult Floor ? BSA: ?1.99 Study Date: ?? 08/30/2019 ?Pt. Type: Inpatient Tape: ? Referring: POOJA IYER J Reading: Jose Chambers ([id number]) Measuring Clerk: Jaspreet Oneil [facility] Interpreting Fellow: Poncho Yates ([id number]) Diagnosis: *Non-ST elevation (NSTEMI) myocardial infarction (I21.4) [...] Vmax ?0.35 ? m/sec ? MV deceleration [id number] ?msec ? MV A-wave Vmax ?0.25 ? [...] ? Mid-Inferior ?Normal ? Mid-Inferoseptal ?Normal ? Drummond-Septal ? Normal ? Drummond-Anterior ? Normal ? Drummond-Lateral ?Normal ? Drummond-Inferior ? Normal ? Drummond-Tip ?Normal ? This report has been electronically signed by: Jose Chambers MD ? 08/30/2019 14:21:57 Images reviewed and interpretation verified [facility] Cardiac Ultrasound Laboratory Procedure Note Jose Chambers MD - 08/30/2019 Procedure: Transthoracic Echocardiogram Patient: NEISHA VÁSQUEZ(Age): 1970(49y) Med Rec#: [id number] Sex: F [place] Loc: [facility] Ht / Wt: 163(cm)/94(kg) Pt. Loc: Adult Floor BSA: 1.99 Study Date: 08/30/2019 Pt. Type: Inpatient Tape: Referring: POOJA IYER J Reading: Jose Chambers ([id number]) Measuring Clerk: Jaspreet Oneil RDCS Interpreting Fellow: Poncho Yates ([id number]) Diagnosis: *Non-ST elevation (NSTEMI) myocardial infarction (I21.4) [...] MV E-wave Vmax 0.35 m/sec MV deceleration [id number] msec MV A-wave Vmax 0.25 m/sec MV [...] Normal Mid-Posterolateral Normal Mid-Inferior Normal Mid-Inferoseptal Normal Drummond-Septal Normal Drummond-Anterior Normal Drummond-Lateral Normal Drummond-Inferior Normal Drummond-Tip Normal This report has been electronically signed by: Jose Chambers MD 08/30/2019 14:21:57 Images reviewed and interpretation verified [facility] Cardiac Ultrasound Laboratory Manish Benitez MD ECHO ORDERABLES * EKG 12 Lead (08/30/2019 10:28 AM EDT) Ventricular rate 52 BPM MUSE SYSTEM Atrial Rate 52 BPM MUSE SYSTEM P-R Interval 162 ms MUSE SYSTEM QRS Duration 84 ms MUSE SYSTEM Q-T Interval 536 ms MUSE SYSTEM QTC Calculated (Bezet) 498 ms MUSE SYSTEM Calculated P Mickleton -9 degrees MUSE SYSTEM Calculated R Mick[place] 43 degrees MUSE SYSTEM Calculated T Mickleton -27 degrees MUSE SYSTEM INTERPRETATION Sinus bradycardia [...] by MD YOO SALVATORE ([id number]) on 08/30/2019 4:45:49 PM MUSE SYSTEM 08/30/2019 10:2 8 AM EDT 08/30/2019 4:45 PM EDT Manish Benitez MD ECG ORDERABLES Performing Organization Address [facility] [address]/[facility] de Phone Number MUSE SYSTEM * Heparin (unfractionated) Level (08/30/2019 2:53 AM EDT) UF Heparin 0.44 IU/mL [facility] Comment: Guidelines for therapeutic [...] MD HEMATOLOGY ORDERAB LES Performing Organization Address [facility] [address]/[facility] de Phone Number [facility] [place] [address] * (ABNORMAL) Differential, Automated (08/30/2019 2:53 AM EDT) Neutrophil % 52.4 % [facility] Neutrophil Absolute 3.85 1.70 - 6.10 x10(3)/[facility] Lymph % 29.3 % [facility] Lymphocytes Abs 2.2 0.9 - 3.2 x10(3)/[facility] Monocyte % 9.1 % [facility] Monocyte Abs 0.7 0.3 - 0.9 x10(3)/[facility] Eos % 8.6 % [facility] Eosinophils Abs 0.6(H) 0.0 - 0.4 x10(3)/[facility] Basophil % 0.5 % [facility] Baso Absolute 0.0 0.0 - 0.1 x10(3)/[facility] Immature Gran % 0.10 % [facility] Comment: Immature granulocytes(IG's)percentage and absolute count will include metamyelocytes, myelocytes, and promyelocytes. Blood smears from CBCs yielding IG's will be scanned manually for concordance. If this scan disagrees with the automated IG or if promyelocytes are noted, a manual differential will be performed. Immature Gran Absolute 0.01 0.00 - 0.04 x10(3)/[facility] Blood specimen (specimen) 08/30/2019 2:53 AM EDT 08/30/2019 3:01 AM EDT Narrative Resulting Agency Comment Spec In Lab Abeba SANDRA HEMATOLOGY ORDERABLE S [facility] [place] [address] * (ABNORMAL) Hemogram (08/30/2019 2:53 AM EDT) Pathologist [facility] White Blood Cell 7.4 4.0 - 9.5 x10(3)/[facility] Red Blood Cell 4.84 4.00 - 5.21 x10(6)/mc L [facility] Hemoglobin 14.8 11.7 - 15.5 gm/dL [facility] Hematocrit 44.8 35.7 - 45.8 % [facility] Mean Cell Volume 92.6 82.6 - 94.4 fL [facility] Mean Cell Hemoglobin 30.6 27.1 - 32.0 pg [facility] Mean Cell Hemoglobin Concentration 33.0 31.7 - 35.0 gm/dL [facility] Platelet 272 145 - 357 x10(3)/mc L [facility] RDW Standard Deviation 46.2(H) 37.0 - 46.0 fL [facility] RDW coefficient of variation 13.5 11.5 - 14.1 % [facility] Mean Platelet Volume 10.9 7.6 - 12.9 fL [facility] NRBC% auto 0.0 % [facility] NRBC Absolute 0.000 0.000 - 0.000 x10(3)/mc L [facility] Blood specimen (specimen) 08/30/2019 2:53 AM EDT 08/30/2019 3:01 AM EDT Narrative Resulting Agency Comment Spec In Lab Abeba SANDRA HEMATOLOGY ORDERABLE S Performing Organization Address City/[facility] [address]/ZIP Co de Phone Number [facility] [place] [address] * Magnesium (08/30/2019 2:53 AM EDT) Magnesium 0.90 0.69 - 1.07 mmol/L [facility] Blood specimen (specimen) 08/30/2019 2:53 AM EDT 08/30/2019 3:01 AM EDT Narrative Resulting Agency Comment Spec In Lab Manish Benitez MD CHEMISTRY ORDERABL ES Performing Organization Address City/[facility] [address]/ZIP Co de Phone Number [facility] [place] [address] * (ABNORMAL) BMP w/fasting Glucose (08/30/2019 2:53 AM EDT) [facility] Signature Glucose Fasting 102(H) 65 - 99 mg/dL [...] of Diabetes Mellitus, Position Statement from the [place] [employer]. ??Diabetes Care, Volume 33, Supplement 1, Mar 2009 Blood Urea Nitrogen 18 8 - 18 mg/dL [facility] [...] 98 - 107 mmol/L [facility] Carbon Dioxide 19(L) 22 - 31 mmol/L [facility] Anion Gap 17(H) 5 - 15 mmol/L [facility] Calcium 9.0 8.5 - 10.5 mg/dL [facility] Est Glomerular Filtration Rate 59(L) >=60 mL/min/1. 73 m?? [facility] Comment: The eGFR was calculated using the CKD-EPI equation. As with all creatinine based estimates of kidney function, eGFR values calculated with the CKD-EPI equation are not accurate in patients with acute kidney failure, extremes of body mass or the acutely ill. [email or web address] eGFR 69 >=60 mL/min/1. 73 m?? [facility] Comment: The eGFR was calculated using the CKD-EPI equation. As with all creatinine based estimates of kidney function, eGFR values calculated with the CKD-EPI equation are not accurate in patients with acute kidney failure, extremes of body mass or the acutely ill. [email or web address] Blood specimen (specimen) 08/30/2019 2:53 AM EDT 08/30/2019 3:01 AM EDT Narrative Resulting Agency Comment Spec In Lab Manish Benitez MD CHEMISTRY ORDERABL ES Performing Organization Address [facility] [address]/ZIP Co de Phone Number [facility] [place] [address] * Triglyceride (08/30/2019 2:53 AM EDT) Triglyceride 203 mg/dL [facility] Comment: Average Risk/Lower Risk: <150 mg/dL Borderline High Risk: 150-199 mg/dL High Risk: 200-499 mg/dL Very High Risk: >hx=312 mg/dL Blood specimen (specimen) 08/30/2019 2:53 AM EDT 08/30/2019 3:01 AM EDT Narrative Resulting Agency Comment Spec In Lab Manish Benitez MD CHEMISTRY ORDERABL ES [facility] [place] [address] * HDL/Cholesterol Profile (08/30/2019 2:53 AM EDT) Cholesterol, Total 220 mg/dL [facility] Comment: Lower Risk: <200 mg/dL Average Risk: 200-239 mg/dL Higher Risk: >ft=952 mg/dL HDL Cholesterol 34 mg/dL [facility] Comment: Males: ?? Higher Risk: <40 mg/dL Females: ?? HIgher Risk: <50 mg/dL Cholesterol/HDL Ratio 6.5 ratio [facility] Chol/HDL Interpretation See Note [facility] Comment: Lipid management should be guided by a patient? s ASCVD risk, goals and preferences. ACC/AHA Guidelines recommend high intensity statin if clinical ASCVD or LDL greater than or equal to 190 mg/dL. http://[email or web address] [email or web address]/PXB-GCV-Ltgwgiweq Measure LDL if Total Cholesterol minus HDL Cholesterol is greater than 220 mg/dL. Adults aged 40-75 with LDL 70-189 mg/dL should have their 10 year ASCVD risk estimated with the ACC/AHA ASCVD risk sound ranging crewmember http://tools.acc.org/QYKSM-Fevn-Sifkjdxej/ Statin should be discussed if risk greater [...] MD CHEMISTRY ORDERABL ES [facility] [place] [address] * LDL Cholesterol, Direct (08/30/2019 2:53 AM EDT) LDL Cholesterol, Direct 165 mg/dL [facility] Comment: Lowest Risk: <100 mg/dL Lower Risk: 100-129 mg/dL Borderline High Risk: 130-159 mg/dL High Risk: 160-189 mg/dL Very High Risk: >cb=019 mg/dL Blood specimen (specimen) 08/30/2019 2:53 AM EDT 08/30/2019 3:01 AM EDT Narrative Resulting Agency Comment Spec In Lab Manish Benitez MD CHEMISTRY ORDERABL ES [facility] [place] [address] * Hemoglobin A1c (08/30/2019 2:53 AM EDT) Hemoglobin A1c 5.4 4.3 - 5.6 % [facility] [...] Mellitus, Diabetes Care 2013; 36: Suppl. 1, S67-51 Estimated Average Glucose 108 mg/dL [facility] Comment: eAG equivalents [...] into estimated average glucose values. ??Diabetes Care 2008:31(8):8752-1024. Blood specimen (specimen) 08/30/2019 2:53 AM EDT 08/30/2019 3:01 AM EDT Narrative Resulting Agency Comment Spec In Lab Manish Benitez MD CHEMISTRY ORDERABL ES Performing Organization Address [facility] [address]/[facility] Co de Phone Number [facility] [place] [address] * CK (08/30/2019 2:53 AM EDT) Creatine Kinase 82 0 - 160 unit/L [facility] Blood specimen (specimen) 08/30/2019 2:53 AM EDT 08/30/2019 3:01 AM EDT Narrative Resulting Agency Comment Spec In Lab Manish Benitez MD CHEMISTRY ORDERABL ES Performing Organization Address [facility] [address]/[facility] Co de Phone Number [facility] [place] [address] * Troponin (08/30/2019 2:53 AM EDT) Troponin-T [...] meets the diagnosis for a myocardial infarction (ID). Detection of a rise and/or fall of cTnT, with at least one value greater than the 99th percentile (> or = 0.01) and with at least one of the following ?? Symptoms of ischemia ?? New or presumed new significant HA-dtuwdad-B wave (ST-T) changes or new left bundle [...] additional sample may be indicated. Reference: Third [place] Definition of Myocardial Infarction. Journal of the [place] [employer] 2012;60:1581-98 Blood specimen (specimen) 08/30/2019 2:53 AM EDT 08/30/2019 3:01 AM EDT Narrative Resulting Agency Comment Spec In Lab Manish Benitez MD CHEMISTRY ORDERABL ES [facility] [place] [address] * (ABNORMAL) Differential, Automated (08/29/2019 8:30 PM EDT) Neutrophil % 56.5 % [facility] Neutrophil Absolute 3.58 1.70 - 6.10 x10(3)/ L [facility] Lymph % 25.9 % [facility] Lymphocytes Abs 1.6 0.9 - 3.2 x10(3)/[facility] Monocyte % 8.8 % [facility] Monocyte Abs 0.6 0.3 - 0.9 x10(3)/ L [facility] Eos % 7.7 % [facility] Eosinophils Abs 0.5(H) 0.0 - 0.4 x10(3)/[facility] Basophil % 0.8 % [facility] Baso Absolute 0.0 0.0 - 0.1 x10(3)/ L [facility] Immature Gran % 0.30 % [facility] Comment: Immature granulocytes(IG's)percentage and absolute count will include metamyelocytes, myelocytes, and promyelocytes. Blood smears from CBCs yielding IG's will be scanned manually for concordance. If this scan disagrees with the automated IG or if promyelocytes are noted, a manual differential will be performed. Immature Gran Absolute 0.02 0.00 - 0.04 x10(3)/mc L [facility] Blood specimen (specimen) 08/29/2019 8:30 PM EDT 08/29/2019 9:11 PM EDT Narrative Resulting Agency Comment Spec In Lab Abeba SANDRA HEMATOLOGY ORDERABLE S [facility] [place] [address] * (ABNORMAL) Hemogram (08/29/2019 8:30 PM EDT) White Blood Cell 6.3 4.0 - 9.5 x10(3)/mc L [facility] Red Blood Cell 5.03 4.00 - 5.21 x10(6)/mc L [facility] Hemoglobin 15.3 11.7 - 15.5 gm/dL [facility] Hematocrit 46.4(H) 35.7 - 45.8 % [facility] Mean Cell Volume 92.2 82.6 - 94.4 fL [facility] Mean Cell Hemoglobin 30.4 27.1 - 32.0 pg [facility] Mean Cell Hemoglobin Concentration 33.0 31.7 - 35.0 gm/dL [facility] Platelet 267 145 - 357 x10(3)/mc L [facility] RDW Standard Deviation 46.4(H) 37.0 - 46.0 [facility] RDW coefficient of variation 13.6 11.5 - 14.1 % [facility] Mean Platelet Volume 11.3 7.6 - 12.9 [facility] NRBC% auto 0.0 % [facility] NRBC Absolute 0.000 0.000 - 0.000 x10(3)/ L [facility] Blood specimen (specimen) 08/29/2019 8:30 PM EDT 08/29/2019 9:11 PM EDT Narrative Resulting Agency Comment Spec In Lab Abeba SANDRA HEMATOLOGY ORDERABLE S [facility] [place] [address] * Heparin (unfractionated) Level (08/29/2019 8:30 PM EDT) UF Heparin 0.46 IU/mL [facility] Comment: Guidelines for therapeutic [...] MD HEMATOLOGY ORDERAB LES Performing Organization Address [facility] [address]/[facility] Co de Phone Number [facility] [place] [address] * CK (08/29/2019 8:30 PM EDT) Creatine Kinase 94 0 - 160 unit/L [facility] Blood specimen (specimen) 08/29/2019 8:30 PM EDT 08/29/2019 9:11 PM EDT Narrative Resulting Agency Comment Spec In Lab Manish Benitez MD CHEMISTRY ORDERABL ES Performing Organization Address [facility] [address]/[facility] Co de Phone Number [facility] [place] [address] * Troponin (08/29/2019 8:30 PM EDT) Troponin-T [...] meets the diagnosis for a myocardial infarction (ID). Detection of a rise and/or fall of cTnT, with at least one value greater than the 99th percentile (> or = 0.01) and with at least one of the following ?? Symptoms of ischemia ?? New or presumed new significant LT-mgthsto-G wave (ST-T) changes or new left bundle [...] additional sample may be indicated. Reference: Third [place] Definition of Myocardial Infarction. Journal of the [place] [employer] 2012;60:1581-98 Blood specimen (specimen) 08/29/2019 8:30 PM EDT 08/29/2019 9:11 PM EDT Narrative Resulting Agency Comment Spec In Lab Manish Benitez MD CHEMISTRY ORDERABL ES [facility] [place] [address] * EKG 12 Lead (08/29/2019 4:19 PM EDT) Ventricular rate 67 BPM MUSE SYSTEM Atrial Rate 67 BPM MUSE SYSTEM P-R Interval 164 ms MUSE SYSTEM QRS Duration 80 ms MUSE SYSTEM Q-T Interval 478 ms MUSE SYSTEM QTC Calculated (Bezet) 505 ms MUSE SYSTEM Calculated P [place] 34 degrees MUSE SYSTEM Calculated R [place] 30 degrees MUSE SYSTEM Calculated T [place] -29 degrees MUSE SYSTEM INTERPRETATION Demand pacemaker; [...] (ABNORMAL) Differential, Automated (08/29/2019 3:10 PM EDT) Neutrophil % 58.3 % [facility] Neutrophil Absolute 3.79 1.70 - 6.10 x10(3)/[facility] Lymph % 22.7 % [facility] Lymphocytes Abs 1.5 0.9 - 3.2 x10(3)/[facility] Monocyte % 10.3 % [facility] Monocyte Abs 0.7 0.3 - 0.9 x10(3)/[facility] Eos % 7.8 % [facility] Eosinophils Abs 0.5(H) 0.0 - 0.4 x10(3)/[facility] Basophil % 0.6 % [facility] Baso Absolute 0.0 0.0 - 0.1 x10(3)/[facility] [...] Absolute 0.02 0.00 - 0.04 x10(3)/ L [facility] Blood specimen (specimen) 08/29/2019 3:10 PM EDT 08/29/2019 3:50 PM EDT Narrative Resulting Agency Comment Spec In Lab Abeba SANDRA HEMATOLOGY ORDERABLE S [facility] [place] [address] * (ABNORMAL) Hemogram (08/29/2019 3:10 PM EDT) White Blood Cell 6.5 4.0 - 9.5 x10(3)/mc L [facility] Red Blood Cell 4.69 4.00 - 5.21 x10(6)/mc L [facility] Hemoglobin 14.1 11.7 - 15.5 gm/dL [facility] Hematocrit 43.8 35.7 - 45.8 % [facility] Mean Cell Volume 93.4 82.6 - 94.4 fL [facility] Mean Cell Hemoglobin 30.1 27.1 - 32.0 pg [facility] Mean Cell Hemoglobin Concentration 32.2 31.7 - 35.0 gm/dL [facility] Platelet 235 145 - 357 x10(3)/mc L [facility] RDW Standard Deviation 47.2(H) 37.0 - 46.0 [facility] RDW coefficient of variation 13.7 11.5 - 14.1 % [facility] Mean Platelet Volume 11.5 7.6 - 12.9 [facility] NRBC% auto 0.0 % [facility] NRBC Absolute 0.000 0.000 - 0.000 x10(3)/mc L [facility] Blood specimen (specimen) 08/29/2019 3:10 PM EDT 08/29/2019 3:50 PM EDT Narrative Resulting Agency Comment Spec In Lab [place]ba SANDRA HEMATOLOGY ORDERABLE S [facility] [place] [address] * Hepatic Function Panel (08/29/2019 3:10 PM EDT) [facility] Protein, Total 7.1 6.1 - 8.0 gm/dL [facility] Albumin 4.0 3.2 - 5.2 gm/dL [facility] Aspartate Aminotransferase 25 0 - 30 unit/L [facility] Alanine Aminotransferase 19 0 - 30 unit/L [facility] Alkaline Phosphatase 49 35 - 105 unit/L [facility] Bilirubin, Total 0.7 0.2 - 1.3 mg/dL [facility] Bilirubin, Direct 0.1 0.0 - 0.3 mg/dL [facility] Blood specimen (specimen) 08/29/2019 3:10 PM EDT 08/29/2019 3:52 PM EDT Narrative Resulting Agency Comment Spec In Lab Manish Benitez MD CHEMISTRY ORDERABL ES Performing Organization Address City/[facility] [address]/ZIP Co de Phone Number [facility] [place] [address] * TSH (08/29/2019 3:10 PM EDT) [facility] Thyroid Stimulating Hormone 1.87 0.27 - 4.20 mcIU/mL [facility] Blood specimen (specimen) 08/29/2019 3:10 PM EDT 08/29/2019 3:52 PM EDT Narrative Resulting Agency Comment Spec In Lab Manish Benitez MD [place] [address] * (ABNORMAL) pro-Brain Natriuretic Peptide (08/29/2019 3:10 PM EDT) [facility] NT-proBNP 1,242(H) <=125 pg/mL [facility] Blood specimen (specimen) 08/29/2019 3:10 PM EDT 08/29/2019 3:52 PM EDT Narrative Resulting Agency Comment Spec In Lab Manish Benitez MD CHEMISTRY ORDERABL ES Performing Organization Address [facility] [address]/[facility] Co de Phone Number [facility] [place] [address] * CK (08/29/2019 3:10 PM EDT) Creatine Kinase 96 0 - 160 unit/L [facility] Blood specimen (specimen) 08/29/2019 3:10 PM EDT 08/29/2019 3:52 PM EDT Narrative Resulting Agency Comment Spec In Lab Manish Benitez MD CHEMISTRY ORDERABL ES Performing Organization Address [facility] de Phone Number [facility] [place] [address] * Troponin (08/29/2019 3:10 PM EDT) Troponin-T <0.01 0.00 - 0.00 ng/mL [facility] Comment: The 99th percentile for Troponin T is less than 0.01 ng/mL, any detectable cTnT concentration using this assay should be considered elevated. According to the third universal definition of myocardial infarction the following criteria with a clinical presentation consistent with acute myocardial ischemia meets the diagnosis for a myocardial infarction (ID). Detection of a rise and/or fall of cTnT, with at least one value greater than the 99th percentile (> or = 0.01) and with at least one of the following ?? Symptoms of ischemia ?? New or presumed new significant UH-vzvcbpa-E wave (ST-T) changes or new left bundle [...] additional sample may be indicated. Reference: Third [place] Definition of Myocardial Infarction. Journal of the [place] [employer] 2012;60:1581-98 Blood specimen (specimen) 08/29/2019 3:10 PM EDT 08/29/2019 3:52 PM EDT Narrative Resulting Agency Comment Spec In Lab Manish Benitez MD CHEMISTRY ORDERABL ES Performing Organization Address [facility] Phone Number [facility] [place] [address] * (ABNORMAL) APTT (08/29/2019 3:10 PM EDT) Partial Thromboplastin Time 132(Criti edy) 25 - 37 sec [facility] [...] MD HEMATOLOGY ORDERAB LES Performing Organization Address [facility] Phone Number [facility] [place] [address] * (ABNORMAL) Prothrombin Time (08/29/2019 3:10 PM EDT) Prothrombin Time 13.3(H) 9.4 - 12.5 sec [facility] International Normalization Ratio 1.2 [facility] Comment: An INR [...] MD HEMATOLOGY ORDERAB LES [facility] [place] [address] * (ABNORMAL) Basic Metabolic Panel (non-fasting) (08/29/2019 3:10 PM EDT) Glucose 83 65 - 199 mg/dL [facility] Comment:Diabetes: >=200 mg/d L plus symptoms Blood Urea Nitrogen 15 8 - 18 mg/dL [facility] [...] 98 - 107 mmol/L [facility] Carbon Dioxide 19(L) 22 - 31 mmol/L [facility] Anion Gap 14 5 - 15 mmol/L [facility] Calcium 9.2 8.5 - 10.5 mg/dL [facility] Est Glomerular Filtration Rate 81 >=60 mL/min/1. 73 m?? [facility] Comment: The eGFR was calculated using the CKD-EPI equation. As with all creatinine based estimates of kidney function, eGFR values calculated with the CKD-EPI equation are not accurate in patients with acute kidney failure, extremes of body mass or the acutely ill. http://[email or web address] eGFR 94 >=60 mL/min/1. 73 m?? [facility] Comment: The eGFR was calculated using the CKD-EPI equation. As with all creatinine based estimates of kidney function, eGFR values calculated with the CKD-EPI equation are not accurate in patients with acute kidney failure, extremes of body mass or the acutely ill. [email or web address] Blood specimen (specimen) 08/29/2019 3:10 PM EDT 08/29/2019 3:52 PM EDT Narrative Resulting Agency Comment Spec In Lab Manish Benitez MD CHEMISTRY ORDERABL ES [facility] [place] [address] documented in this encounter Visit Diagnoses Diagnosis [...] 1439, Until Wed08/29/19 at 1445, Mark Nick: jaiv pool heparin (Porcine) subcutaneous injection 5,000 Units 5,000 [...] 0842 (Given - Provider: Mark Nick RN)1357 ([facility] Hold - Provider: Admin Adt - Reason: Transfer to a Procedural area)1530 ([facility] Unhold - Provider: Admin Adt) atorvastatin (Lipitor) tablet 80 mg (CANCELED) 80 mg, Oral, EVERY EVENING, First dose on Wed08/29/19 at 1715, Until Discontinued, Routine 1701 (Given - Provider: Mark Nick RN) 1357 ([facility] Hold - Provider: Admin Adt - Reason: Transfer to a Procedural area)1530 ([facility] Unhold - Provider: Admin Adt) clopidogreL (Plavix) tablet 75 mg (CANCELED) 75 mg, Oral, DAILY, First dose on Wed08/30/19 at 0900, Until Discontinued, Routine 0842 (Given - Provider: Mark Nick RN)1357 ([facility] Hold - Provider: Admin Adt - Reason: Transfer to a Procedural area)1530 ([facility] Unhold - Provider: Admin Adt) DULoxetine DR (Cymbalta) capsule 60 mg 60 mg, Oral, NIGHTLY, First dose on Wed08/29/19 at 2100, Until Discontinued, Routine 204 (Given - Provider: Efrain Verma, ERWIN) 1357 ([facility] Hold - Provider: Admin Adt - Reason: Transfer to a Procedural area)1530 ([facility] Unhold - Provider: Admin Adt)2030 (Given - Provider: Gauri Arroyo RN) furosemide (LASIX) injection 40 mg (COMPLETED) 40 mg, Intravenous, ONCE, 1 dose, On Wed08/29/19 at 1800, Routine 1724 (Given - Provider: Mark Nick, ERWIN) gabapentin (Neurontin) capsule 300 mg 300 mg, Oral, 2 TIMES DAILY, First dose on Wed08/29/19 at 2100, Until Discontinued, Routine 204 (Given - Provider: Efrain Verma, ERWIN) 0842 (Given - Provider: Mark Nick RN)1357 ([facility] Hold - Provider: Admin Adt - Reason: Transfer to a Procedural area)1530 ([facility] Unhold - Provider: Admin Adt)2029 (Given - Provider: Gauri Arroyo RN) 0818 (Given - Provider: Maia Vásquez RN) heparin (Porcine) subcutaneous injection 5,000 Units 5,000 [...] be dissolved in water for administration, Routine 102 (Given - Provider: Mark Nick RN) topiramate (Topamax) tablet 100 mg 100 mg, Oral, NIGHTLY, First dose on Wed08/29/19 at 2100, Until Discontinued, DO NOT SPLIT, CRUSH OR OPEN, Routine 2047 (Given - Provider: Efrain Verma RN) 1357 (MAY Hold - Provider: Admin Adt - Reason: Transfer to a Procedural area)153 ([facility] Unhold - Provider: Admin Adt)2030 (Given - Provider: Gauri Arroyo RN) topiramate (Topamax) tablet 50 mg 50 mg, Oral, DAILY, First dose on Wed08/30/19 at 0900, Until Discontinued, Routine 0843 (Given - Provider: Mark Nick RN)1357 ([facility] Hold - Provider: Admin Adt - Reason: Transfer to a Procedural area)1530 ([facility] Unhold - Provider: Admin Adt) 0817 (Given [...] - Reason: Transfer to a Procedural area)1530 ([facility] Unhold - Provider: Admin Adt) sodium chloride [...] Wed08/29/19 at 1632, Until Aura 08/31/19 at 202, Pain, Headaches, Maximum dose of acetaminophen is [...] Sublingual, EVERY 5 MIN PRN, Starting on Tu08/29/19 at 1632, Until Aura 08/31/19 at 2024, [...] - Reason: Transfer to a Procedural area)1530 ([facility] Unhold - Provider: Admin Adt) perflutren [...] UA) documented in this encounter Care Teams Vehicle Sales Professional Relationship Specialty Start Date End Date Tim Rogers DNP PCP - General Family Medicine 08/28/19 06/08/21 documented as of this encounter
--- OUTSIDE RECORDS SUMMARY | 2023-10-20 20:01 | XMS_ITS | Encounter Summary ---
Author Organization Formerly [facility] [place] [address] Care Team Providers Care Lead Level Designer Name Role Phone Tim Rogers DNP Primary Care Provider [phone] Reason for Visit * - Closed Specialty Diagnoses / Procedures Referred By Jayant harris Referred To Contact Procedures Film Library- Storage Only CT Chest Tim Rogers DNP [address] [place] [address] Referral ID Status Reason Start Date Expiration Date Visits Re quested Visits Authorized [id number] Closed 08/02/2020 08/02/2021 1 1 Encounter Details Date Type Department Care Team (Late Contact Info) Description 04/26/2020 Ancillary Procedure [place] [address] Tim Rogers DNP [address] [place], [place] [id number] Social History Tobacco Use Types Packs/Day Years [...] AM EDT Hospital Encounter [place] [phone] Mary Reyes [place] [place] [address] 10/21/2023 11:30 AM EDT Appointment [place] [phone] Mary Reyes [facility] [place] [address] 10/21/2023 12:30 PM EDT Appointment [place] [phone] Mary Reyes [facility] [place] [address] 10/21/2023 1:30 PM EDT Appointment [place] [phone] Mary Reyes [place] [place] [address] 10/21/2023 2:30 PM EDT Appointment [place] [phone] Mary Reyes [facility] [place] [address] 10/26/2023 4:00 PM EDT Office Visit Cardiology at [address] [address] Jaspreet Kinsey MD [facility] [place] [address] 10/28/2023 9:00 AM EDT Office Visit Gastroenterology [place] [address] 10/29/2023 10:00 AM EDT Clinical Support Gastroenterology [place] [address] 10/29/2023 10:15 AM EDT Procedure visit Gastroenter[place] [address] 11/01/2023 5:00 PM EDT Office Visit [place] [phone] Selene Browning, PhD [facility] [place] [address] 11/22/2023 4:40 PM EDT Office Visit Cardiology at [address] [phone] Porsha Mcdaniels MD [facility] [place] [address] 12/13/2023 10:00 AM EDT Clinical Support [place] [address]-[address] [facility] [place] [address] documented as of this encounter Procedures Procedure Name Priority Date/Time Associated Diagnosis Comments FILM LIBRARY STORAGE ONLY CT CHEST Routine 04/26/2020 12:00 AM EST documented in this encounter Results * Film Library- Storage Only CT Chest (04/26/2020 12:00 AM EST) Narrative [facility] - 08/02/2020 9:42 AM EDT This exam is auto-finalizing. It's purpose is for storage only. Tim Rogers DNP IM FILM LIBRARY OR DERABLES [place] documented in this encounter Visit Diagnoses Not on filedocumented in this encounter Care Teams Lead Level Designer Relationship Specialty Start Date End Date Tim Rogers DNP PCP - General Family Medicine 08/28/19 06/08/21 documented as of this encounter
--- OUTSIDE RECORDS SUMMARY | 2023-10-20 20:01 | XMS_ITS | Encounter Summary ---
Author Organization [facility] [place] [address] Care Team Providers Care Book Sorter Name Role Phone Tim Rogers DNP Primary Care Provider +1 [phone] Encounter Details Date Type Department Care Team (Late st Contact Info) Description 10/21/2020 Telephone [place] [address] Beto Miller MD [facility] DR PULMONARY [place] [address] Social History Tobacco Use Types Packs/Day Years [...] 1: 80, normal SSA, SSB, Alcantar antibody, ALUMINUM BOAT INSPECTOR antibody, ANCA, MPO antibody, [place]-3 antibody, serum RITCHIE, CBC, BMP and CRP [...] Question: Where will study be performed? Answer: [facility] Order Specific Question: Apply for 7 or 14 days? Answer: 14 Beto Miller MD documented in this encounter Plan of Treatment Upcoming Encounters Date Type Department Care Team (Late st Contact Info) Description 10/21/2023 10:30 AM EDT Hospital Encounter [place] [address] [place] [address] 10/21/2023 11:30 AM EDT Appoint[place] [address] [place] [address] 10/21/2023 12:30 PM EDT Appointment [place] [address] Mary Reyes DESIGN [place] [address] 10/21/2023 1:30 PM EDT Appointment [place] [address] [place] [address] 10/21/2023 2:30 PM EDT Appointment [place] [address] [place] [address] 10/26/2023 4:00 PM EDT Office Visit Cardiology at [address] [phone] Jaspreet Kinsey MD [facility] [place] [address] 10/28/2023 9:00 AM EDT Office [place] [address] 10/29/2023 10:00 AM EDT Clinical [place] [address] 10/29/2023 10:15 AM EDT Procedure [place] [address] 11/01/2023 5:00 PM EDT Office Visit [place] [address] Selene Browning, PhD [facility] PSYCHIATRY [place] [address] 11/22/2023 4:40 PM EDT Office Visit Cardiology at [address] [phone] Porsha Mcdaniels MD [facility] [place] [address] 12/13/2023 10:00 AM EDT Clinical Support [place] [phone] [facility] [place] [address] documented as of this encounter Visit Diagnoses Diagnosis Palpitations documented in this encounter Care Teams Book Sorter Relationship Specialty Start Date End Date Tim Rogers DNP PCP - General Family Medicine 08/28/19 06/08/21 documented as of this encounter
--- OUTSIDE RECORDS SUMMARY | 2023-10-20 20:01 | XMS_ITS | Encounter Summary ---
[place] [address] Care Team Providers Care Can Line Examiner Name Role Phone Tim Rogers DNP Primary Care Provider [phone] Encounter Details Date Type Department Care Team (Late st Contact Info) Description 05/06/2020 Telephone [place] [phone] Virginia Marc Social History Tobacco Use Types [...] AM EDT Hospital Encounter [place] [phone] Mary Reyes CPO [facility] [place] [address] 10/21/2023 11:30 AM EDT Appointment [place] [phone] Calvino, Mary M, [facility] [place] [address] 10/21/2023 12:30 PM EDT Appointment [place] [address] [address] Re[address] [facility] [place] [address] 10/21/2023 1:30 PM EDT Appointment [place] [address] Mary Reyes [facility] [place] [address] 10/21/2023 2:30 PM EDT Appointment [place] [address] [address] Reyes [facility] [place] [address] 10/26/2023 4:00 PM EDT Office Visit Cardiology at [address] [phone] Jaspreet Kinsey MD [facility] [place] [address] 10/28/2023 9:00 AM EDT Office [place] [address] 10/29/2023 10:00 AM EDT Clinical [place] [address] 10/29/2023 10:15 AM EDT Procedure [place] [address] 11/01/2023 5:00 PM EDT Office Visit Gastroenterology at [place] [phone] Selene Browning, PhD [facility] [place] [address] 11/22/2023 4:40 PM EDT Office Visit Cardiology at [place] [phone] Porsha Mcdaniels MD [facility] [place] [address] 12/13/2023 10:00 AM EDT Clinical Support Gastroenterology at [place] [phone] Lucero Romero, ALVA [facility] [place] [address] documented as of this encounter Visit Diagnoses Not on filedocumented in this encounter Care Teams Can Line Examiner Relationship Specialty Start Date End Date Tim Rogers DNP PCP - General Family Medicine 08/28/19 06/08/21 documented as of this encounter
--- OUTSIDE RECORDS SUMMARY | 2023-10-20 20:01 | XMS_ITS | Encounter Summary ---
Author Organization [facility] [place] [address] Care Team Providers Care Ergonomist Name Role Phone Tim Rogers DNP Primary Care Provider [phone] Encounter Details Date Type Department Care Team (Latest Contact Info) Description 08/01/2020 11:42 AM EDT - 08/01/2020 11:59 PM EDT Hospital En[place] [phone] Dyspnea, unspecified type Discharge Disposition: Home Social [...] as needed. fluticasone propionate (FLONASE) 50 mcg/actuation [place], Suspension 1 spray by Each Nare [...] AM EDT Hospital Encounter [place] [phone] Mary Reyes APRN [facility] [place] [address] 10/21/2023 11:30 AM EDT Appointment [place] [address] Mary Reeys HUMAN RESOURCES SUPPORT SPECIALIST [facility] [place] [address] 10/21/2023 12:30 PM EDT Appointment [place] [address] Mary Reyes [facility] [place] [address] 10/21/2023 1:30 PM EDT Appointment [place] [address] [place] [address] 10/21/2023 2:30 PM EDT Appointment [place] [address] [place] [address] 10/26/2023 4:00 PM EDT Office Visit Cardiology at [address] [phone] Jaspreet Kinsey MD [facility] [place] [address] 10/28/2023 9:00 AM EDT Office [place] [address] 10/29/2023 10:00 AM EDT Clinical Support [place] [address] 10/29/2023 10:15 AM EDT Procedure [place] [address] 11/01/2023 5:00 PM EDT Office [place] [address] Selene Browning, PhD [facility] [place] [address] 11/22/2023 4:40 PM EDT Office Visit Cardiology at [address] [address] Porsha Mcdaniels MD [facility] [place] [address] 12/13/2023 10:00 AM EDT Clinical [place] [address] [facility] [place] [address] documented as of this encounter Procedures Procedure [...] / FVC LLN 69 % COMPAS PFT BSI55-13 Actual Pre-BD 3.14 L/s COMPAS PFT FXQ80-45 Pre-BD % of Predicted 116 % COMPAS PFT RXX18-33 Predicted 2.70 L/s COMPAS PFT OSA85-64 Pre-BD Z-Score 0.51 COMPAS PFT FVC Actual [...] PFT FEV1/FVC Post-BD Z-Score 1.94 COMPAS PFT HTC76-98 Actual Post-BD 4.26 L/s COMPAS PFT BYU25-85 Post-BD % of Predicted 158 % COMPAS PFT NPW45-25 Post-BD Z-Score 1.67 COMPAS PFT DLCO Hb [...] type documented in this encounter Care Teams Ergonomist Relationship Specialty Start Date End Date Tim Rogers DNP PCP - General Family Medicine 08/28/19 06/08/21 documented as of this encounter
--- OUTSIDE RECORDS SUMMARY | 2023-10-20 20:01 | XMS_ITS | Encounter Summary ---
Author Organization Counts Include [facility] Address [facility] [place] [address] Care Team Providers Care Human Resources Mgr Name Role Phone Tim Rogers DNP Primary Care Provider [phone] Encounter Details Date Type Department Care Team (Latest Contact Info) Description 05/30/2021 9:30 AM EDT TH Visit (TeleHealth) [place] [address] Beto Miller MD [facility] [place] [address] Pleurisy with effusion; *History of COVID-19; Chronic [...] 05/30/21 PCP: Polo Pearce and Tim Rogers, INDUSTRIAL EDUCATION INSTRUCTOR [address] [place] [address] Pulmonary Background: ?? Cough, dyspnea, wheeze and [...] 1: 79, normal SSA, SSB, Alcantar antibody, ROAD TRAFFIC CONTROLLER antibody, ANCA, MPO antibody, [place]-3 antibody, serum RITCHIE, CBC, BMP and CRP [...] I reviewed the chest x-ray done at [place] at the time which showed bilateral hazy opacities (mild). Debbie was not hospitalized for Covid and seemed to make a short-term recovery but by late April was again struggling. She describes increased cough and dyspnea and went to the emergency room at [place] May 02. I do not have that [...] the May 27 CT chest images from [facility] and her April chest x-ray images ??? Once I have reviewed these I will contact the patient and potentially involve local teacher hearing impaired, Ryanne Wilson, who I do not think is ever seen the patient but may be a useful local resourcegiven Indira's complicated history Outpatient Established Visits Time MDM 88305 10-19 Straightforward 45818 20-29 X Low 20507 30-39 Moderate 24193 40-54 High 02676 + 15 mins Beto Miller MD documented in this encounter Plan of Treatment Upcoming Encounters Date Type Department Care Team (Late st Contact Info) Description 10/21/2023 10:30 AM EDT Hospital Encounter Nuclear Medicine at [facility] [place] [address] Mary Reyes [facility] [address] 10/21/2023 11:30 AM EDT Appointment Nuclear Medicine at [place] [phone] Mary Reyes [place] [address] 10/21/2023 12:30 PM EDT Appointment Nuclear Medicine at [place] [phone] Mary Reyes [place] [address] 10/21/2023 1:30 PM EDT Appointment [place] [address] Mary Reyes [place] [address] 10/21/2023 2:30 PM EDT Appointment [place] [address] Mary Reyes [place] [address] 10/26/2023 4:00 PM EDT Office Visit Cardiology at [address] [address] Jaspreet Kinsey MD [facility] [place] [address] 10/28/2023 9:00 AM EDT Office [place] [address] 10/29/2023 10:00 AM EDT Clinical [place] [address] 10/29/2023 10:15 AM EDT Procedure [place] [address] 11/01/2023 5:00 PM EDT Office [place] [address] Selene Browning, PhD [facility] [place] [address] 11/22/2023 4:40 PM EDT Office Visit Cardiology at [address] [address] Porsha Mcdaniels MD [facility] [place] [address] 12/13/2023 10:00 AM EDT Clinical [place] [address] Lucero Romero, RD [facility] [place] [place] [address] documented as of this encounter Visit Diagnoses Diagnosis Pleurisy with effusion Unspecified pleural effusion History of COVID-19 Chronic cough Cough RAVI (dyspnea on exertion) Other dyspnea and respiratory abnormality documented in this encounter Care Teams Human Resources Mgr Relationship Specialty Start Date End Date Tim Rogers DNP PCP - General Family Medicine 08/28/19 06/08/21 documented as of this encounter
--- OUTSIDE RECORDS SUMMARY | 2023-10-20 20:01 | XMS_ITS | Encounter Summary ---
Author Organization [facility] [place] [address] Care Team Providers Care Manager Cosmetic Name Role Phone Tim Rogers DNP Primary Care Provider [phone] Reason for Visit * Reason Comments Referral Dyspnea On Exertion * Consultation (Routine) - Specialty Diagnoses / Procedures Referred By Jayant harris Referred To Contact Pulmonology Diagnoses Other forms of dyspnea Virginia Neal MD [facility] [address] [place] [address] [facility] Pulmonology [address] [place] [phone] Referral ID Status Reason Start Date Expiration Date V isits Requested Visits Authorized [id number] Consult, Test & Treat Connection [facility] PCP Updated and/or Approved 04/05/2020 10/02/2020 6 6 Encounter Details Date Type Department Care Team (Latest Contact Info) Description 08/01/2020 1:00 PM EDT Office Visit [place] [address] Beto Miller MD [facility] [place] [address] Asthma, chronic, moderate persistent, uncomplicated [...] Miller MD - 08/01/2020 1:00 PM EDT [facility] Section of Pulmonary Medicine Outpatient Consultation Date of Encounter: 08/01/2020 Referring Provider: Virginia Neal Md [address] [place] [address] PCP: Tim Rogers APRN [address] [place] [address] Reason for Consult: I was asked to [...] unable to breathe and was sent to [facility] for the possibility of non-ST elevation myocardial [...] ONCE ??? fluticasone propionate (FLONASE) 50 mcg/actuation [place], Suspension 1 spray by Each Nare route [...] do think that asthma is a major city driver. She has been prescribed Symbicort but [...] MD Pulmonary and Critical Care Medicine Pager #[phone] documented in this encounter Plan of Treatment Upcoming Encounters Date Type Department Care Team (Late st Contact Info) Description 10/21/2023 10:30 AM EDT Hospital Encounter [place] [address] [place] [address] 10/21/2023 11:30 AM EDT Appointment [place] [address] [place] [address] 10/21/2023 12:30 PM EDT Appointment [place] [address] Mary Reyes [facility] [place] [address] 10/21/2023 1:30 PM EDT Appointment [place] [address] Mary Reyes [facility] [place] [address] 10/21/2023 2:30 PM EDT Appointment Nuclear Medicine at [place] [phone] [place] [address] 10/26/2023 4:00 PM EDT Office Visit Cardiology at [address] [address] Jaspreet Kinsey MD [facility] [place] [address] 10/28/2023 9:00 AM EDT Office [place] [address] 10/29/2023 10:00 AM EDT Clinical [place] [address] 10/29/2023 10:15 AM EDT Procedure [place] [address] 11/01/2023 5:00 PM EDT Office Visit Gastroenterology at [place] [phone] Selene Browning, PhD [facility] [place] [address] 11/22/2023 4:40 PM EDT Office Visit Cardiology at [place] [phone] Porsha Mcdaniels MD [facility] [place] [address] 12/13/2023 10:00 AM EDT Clinical Support Gastro[place] [address] Lucero Romero, ALVA [facility] [place] [address] documented as of this encounter Visit Diagnoses Diagnosis Asthma, chronic, moderate persistent, uncomplicated documented in this encounter Care Teams Manager Cosmetic Relationship Specialty Start Date End Date Tim Rogers DNP PCP - General Family Medicine 08/28/19 06/08/21 documented as of this encounter
--- OUTSIDE RECORDS SUMMARY | 2023-10-20 20:01 | XMS_ITS | Encounter Summary ---
Author Organization [facility] [place] [address] Care Team Providers Care Cigar Binder Name Role Phone Tim Rogers DNP Primary Care Provider Encounter Details Date Type Department Care Team (Late st Contact Info) Description 04/26/2020 Orders [place] [address] Bull Fitzgerald MD [facility] [address] Dyspnea, unspecified type (Primary Dx) Social History [...] AM EDT Hospital Encounter [place] [address] Mary Reyes APRN [facility] [place] [place] [address] 10/21/2023 11:30 AM EDT Appointment [place] [address] [place] [address] 10/21/2023 12:30 PM EDT Appointment [place] [address] [place] [address] 10/21/2023 1:30 PM EDT Appointment [place] [address] [place] [address] 10/21/2023 2:30 PM EDT Appointment [place] [address] [place] [address] 10/26/2023 4:00 PM EDT Office Visit Cardiology at [address] [phone] Jaspreet Kinsey MD [facility] [place] [address] 10/28/2023 9:00 AM EDT Office [place] [address] 10/29/2023 10:00 AM EDT Clinical [place] [address] 10/29/2023 10:15 AM EDT Procedure [place] [address] 11/01/2023 5:00 PM EDT Office [place] [phone] Selene Browning, PhD [facility] [place] [address] 11/22/2023 4:40 PM EDT Office Visit Cardiology at [address] [phone] Porsha Mcdaniels MD [facility] [place] [address] 12/13/2023 10:00 AM EDT Clinical Support [place] [address] Lucero Romero, RD [facility] [place] [address] documented as of this encounter Results * [...] / FVC LLN 69 % COMPAS PFT YNV84-09 Actual Pre-BD 3.14 L/s COMPAS PFT DOW65-43 Pre-BD % of Predicted 116 % COMPAS PFT GSP51-68 Predicted 2.70 L/s COMPAS PFT BEJ08-61 Pre-BD Z-Score 0.51 COMPAS PFT FVC Actual [...] PFT FEV1/FVC Post-BD Z-Score 1.94 COMPAS PFT QZR49-81 Actual Post-BD 4.26 L/s COMPAS PFT PCF29-69 Post-BD % of Predicted 158 % COMPAS PFT QVE81-52 Post-BD Z-Score 1.67 COMPAS PFT DLCO Hb [...] type documented in this encounter Care Teams Cigar Binder Relationship Specialty Start Date End Date Tim Rogers DNP PCP - General Family Medicine 08/28/19 06/08/21 documented as of this encounter
--- OUTSIDE RECORDS SUMMARY | 2023-10-20 20:01 | XMS_ITS | Encounter Summary ---
[place] [address] Care Team Providers Care Sink Maker Name Role Phone Tim Rogers DNP Primary Care Provider [phone] Encounter Details Date Type Department Care Team (Late st Contact Info) Description 08/02/2020 Telephone [place] [phone] Olive Frazier Social History Tobacco Use Types [...] AM EDT Hospital Encounter [place] [phone] Mary Re[place] [address] 10/21/2023 11:30 AM EDT Appointment [place] [phone] [facility] [place] [address] 10/21/2023 12:30 PM EDT Appointment [place] [address] aMry Reyes [facility] [place] [address] 10/21/2023 1:30 PM EDT Appointment [place] [address] Mary Reyes [facility] [place] [address] 10/21/2023 2:30 PM EDT Appointment [place] [address] Mary Reyes [facility] [place] [address] 10/26/2023 4:00 PM EDT Office Visit Cardiology at [address] [phone] [facility] [place] [address] 10/28/2023 9:00 AM EDT Office [place] [address] 10/29/2023 10:00 AM EDT Clinical [place] [address] 10/29/2023 10:15 AM EDT Procedure [place] [address] 11/01/2023 5:00 PM EDT Office Visit [place] [address] Selene Browning, PhD [facility] [place] [address] 11/22/2023 4:40 PM EDT Office Visit Cardiology at [place] [phone] [facility] [place] [address] 12/13/2023 10:00 AM EDT Clinical Support Gastroenterology at [place] [phone] Lucero Romero, ALVA [facility] [place] [address] documented as of this encounter Visit Diagnoses Not on filedocumented in this encounter Care Teams Sink Maker Relationship Specialty Start Date End Date Tim Rogers DNP PCP - General Family Medicine 08/28/19 06/08/21 documented as of this encounter
--- OUTSIDE RECORDS SUMMARY | 2023-10-20 20:01 | XMS_ITS | Encounter Summary ---
[place] [address] Care Team Providers Care Emergency Preparedness Manager Name Role Phone Tim Rogers DNP Primary Care Provider Encounter Details Date Type Department Care Team (Late st Contact Info) Description 03/23/2021 Ancillary Procedure [place] [address] Tim Rogers DNP [address] [place], [place] [id number] Social History Tobacco Use Types Packs/Day Years [...] AM EDT Hospital Encounter [place] [phone] Mary Reyes [employer] [place] [address] 10/21/2023 11:30 AM EDT Appointment [place] [address] Mary Reyes [facility] [address] 10/21/2023 12:30 PM EDT Appointment [place] [address] Mary Reyes [facility] [address] 10/21/2023 1:30 PM EDT Appointment [place] [address] Mary Reyes [facility] [address] 10/21/2023 2:30 PM EDT Appointment [place] [address] [place] [address] 10/26/2023 4:00 PM EDT Office Visit Cardiology at [address] [phone] Jaspreet Kinsey MD [facility] [place] [address] 10/28/2023 9:00 AM EDT Office [place] [address] 10/29/2023 10:00 AM EDT Clinical Support [place] [address] 10/29/2023 10:15 AM EDT Procedure [place] [address] 11/01/2023 5:00 PM EDT Office [place] [phone] Selene Browning, PhD [facility] [place] [address] 11/22/2023 4:40 PM EDT Office Visit Cardiology at [address] [phone] Porsha Mcdaniels MD [facility] [place] [address] 12/13/2023 10:00 AM EDT Clinical [place] [phone] [facility] [place] [address] documented as of this encounter Procedures Procedure Name Priority Date/Time Associated Diagnosis Comments FILM LIBRARY STORAGE ONLY DX CHEST Routine 03/23/2021 12:00 AM EST documented in this encounter Results * Film Library- Storage Only DX Chest (03/23/2021 12:00 AM EST) Narrative [facility] - 04/03/2021 11:45 AM EST This exam is auto-finalizing. It's purpose is for storage only. Tim Rogers DNP IM FILM LIBRARY OR DERABLES [place], [place] documented in this encounter Visit Diagnoses Not on filedocumented in this encounter Care Teams Emergency Preparedness Manager Relationship Specialty Start Date End Date Tim Rogers DNP PCP - General Family Medicine 08/28/19 06/08/21 documented as of this encounter
--- OUTSIDE RECORDS SUMMARY | 2023-10-20 20:01 | XMS_ITS | Encounter Summary ---
[place] [address] Care Team Providers Care Android Framework Developer Name Role Phone Tim Rogers DNP Primary Care Provider [phone] Reason for Visit * Reason Onset Date Comments Other 10/18/2020 Pt requesting ca ll back from MD Encounter Details Date Type Department Care Team (Late st Contact Info) Description 10/18/2020 [place] [phone] Olive Gonzales RN Other (Pt requesting call [...] Olive Gonzales RN Department of Pulmonary 5C, [facility] / Pager: [phone] documented in this encounter Plan of Treatment Upcoming Encounters Date Type Department Care Team (Late st Contact Info) Description 10/21/2023 10:30 AM EDT Hospital Encounter [place] [phone] [place] [address] 10/21/2023 11:30 AM EDT Appointment [place] [phone] [place] [address] 10/21/2023 12:30 PM EDT Appointment [place] [address]1000 [place] [address] 10/21/2023 1:30 PM EDT Appointment [place] [phone] Mary Reyes [facility] [place] [address] 10/21/2023 2:30 PM EDT Appointment [place] [address]1000 Mary Reyes [facility] [place] [address] 10/26/2023 4:00 PM EDT Office Visit Cardiology at [address] [place] [address] Jaspreet Kinsey MD [facility] [place] [address] 10/28/2023 9:00 AM EDT Office [place] [address] 10/29/2023 10:00 AM EDT Clinical Support [place] [address] 10/29/2023 10:15 AM EDT Procedure [place] [address] 11/01/2023 5:00 PM EDT Office [place] [phone] Selene Browning, PhD [facility] [place] [address] 11/22/2023 4:40 PM EDT Office Visit Cardiology at [address] [phone] Porsha Mcdaniels MD [facility] [place] [address] 12/13/2023 10:00 AM EDT Clinical [place] [phone] [facility] [place] [address] documented as of this encounter Visit Diagnoses Not on filedocumented in this encounter Care Teams Android Framework Developer Relationship Specialty Start Date End Date Tim Rogers DNP PCP - General Family Medicine 08/28/19 06/08/21 documented as of this encounter
--- OUTSIDE RECORDS SUMMARY | 2023-10-20 20:01 | XMS_ITS | Encounter Summary ---
[place] [address] Care Team Providers Care Director Of Community Life Name Role Phone Tim Rogers DNP Primary Care Provider Encounter Details Date Type Department Care Team (Late st Contact Info) Description 05/27/2021 Ancillary Procedure [place] [address] Tim Rogers DNP [address] [place], [place] [id number] Social History Tobacco Use Types Packs/Day Years [...] EDT Hospital Encounter Nuclear [place] [phone] Mary [place] [address] 10/21/2023 11:30 AM EDT Appointment Nuclear [place] [address] Mary Reyes [facility] [place] [address] 10/21/2023 12:30 PM EDT Appointment Nuclear [place] [address] Mary Reyes [facility] [place] [address] 10/21/2023 1:30 PM EDT Appointment Nuclear [place] [address] Mary Reyes [facility] [place] [address] 10/21/2023 2:30 PM EDT Appointment Nuclear [place] [address] [place] [address] 10/26/2023 4:00 PM EDT Office Visit Cardiology at [address] [phone] Jaspreet Kinsey MD [facility] [place] [address] 10/28/2023 9:00 AM EDT Office [place] [address] 10/29/2023 10:00 AM EDT Clinical [place] [address] 10/29/2023 10:15 AM EDT Procedure [place] [address] 11/01/2023 5:00 PM EDT Office Visit Gastroenterology at [place] [phone] Selene Browning, PhD [facility] [place] [address] 11/22/2023 4:40 PM EDT Office Visit Cardiology at [address] [address] Porsha Mcdaniels MD [facility] [place] [address] 12/13/2023 10:00 AM EDT Clinical [place] [address] [facility] [place] [place] [address] documented as of this encounter Procedures Procedure Name Priority Date/Time Associated Diagnosis Comments FILM LIBRARY STORAGE ONLY CT ABDOMEN AND PELVIS Routine 05/27/2021 12:00 AM EDT documented in this encounter Results * Film Library- Storage Only CT Abdomen & Pelvis (05/27/2021 12:00 AM EDT) Narrative [facility] - 05/30/2021 2:30 PM EDT This exam is auto-finalizing. It's purpose is for storage only. Tim Rogers DNP [employer] FILM LIBRARY OR DERABLES [place], [place] documented in this encounter Visit Diagnoses Not on filedocumented in this encounter Care Teams Director Of Community Life Relationship Specialty Start Date End Date Tim Rogers DNP PCP - General Family Medicine 08/28/19 06/08/21 documented as of this encounter
--- OUTSIDE RECORDS SUMMARY | 2023-10-20 20:01 | XMS_ITS | Encounter Summary ---
[place] [address] Care Team Providers Care Family Support Coordinator Name Role Phone Tim Rogers DNP Primary Care Provider [phone] Reason for Visit * Reason Onset Date Comments Appointment 09/12/2020 Follow up Encounter Details Date Type Department Care Team (Late st Contact Info) Description 09/12/2020 Telephone [place] [phone] Renetta Graham RN Appointment (Follow up) Social [...] AM EDT Hospital Encounter Nuclear [place] [address] [place] [address] 10/21/2023 11:30 AM EDT Appointment Nuclear [place] [address] [place] [address] 10/21/2023 12:30 PM EDT Appointment Nuclear [place] [address] [place] [address] 10/21/2023 1:30 PM EDT Appointment Nuclear [place] [address] [place] [address] 10/21/2023 2:30 PM EDT Appointment Nuclear Medicine [place] [address]-1000 Mary Reyes APRN [facility] [place] [address] 10/26/2023 4:00 PM EDT Office Visit Cardiology at [address] [phone] Jaspreet Kinsey MD [facility] [place] [address] 10/28/2023 9:00 AM EDT Office Visit [place] [address] 10/29/2023 10:00 AM EDT Clinical Support [place] [address] 10/29/2023 10:15 AM EDT Procedure [place] [address] 11/01/2023 5:00 PM EDT Office Visit Gastroenterology at [place] [phone] Selene Browning, PhD [facility] [place] [address] 11/22/2023 4:40 PM EDT Office Visit Cardiology at [address] [phone] Porsha Mcdaniels MD [facility] [place] [address] 12/13/2023 10:00 AM EDT Clinical Support [place] [address]-[address] [facility] [place] [place] [address] documented as of this encounter Visit Diagnoses Not on filedocumented in this encounter Care Teams Family Support Coordinator Relationship Specialty Start Date End Date Tim Rogers DNP PCP - General Family Medicine 08/28/19 06/08/21 documented as of this encounter
--- OUTSIDE RECORDS SUMMARY | 2023-10-20 20:01 | XMS_ITS | Encounter Summary ---
[place] [address] Care Team Providers Care Salesperson Yard Goods Name Role Phone Tim Rogers DNP Primary Care Provider [phone] Reason for Visit * Reason Onset Date Comments Nasal Congestion 09/02/2020 Cough 09/02/2020 Shortness of Breath 09/02/2020 Anorexia 09/02/2020 Lack of appetite Encounter Details Date Type Department Care Team (Late st Contact Info) Description 09/02/2020 [place] [phone] Renetta Graham RN Nasal Congestion; Cough; Shortness [...] radha annita. Return Contact Number: Work - [phone], ask for Mihaela Preferred Pharmacy: [facility] on file. documented in this encounter Plan of Treatment Upcoming Encounters Date Type Department Care Team (Late st Contact Info) Description 10/21/2023 10:30 AM EDT Hospital En[place] [address] Mary Reyes APRN [facility] [place] [address] 10/21/2023 11:30 AM EDT Appoint[place] [address] Mary Reyes APRN [facility] [place] [address] 10/21/2023 12:30 PM EDT Appointment [place] [address]-1000 Mary Reyes APRN [facility] [place] [address] 10/21/2023 1:30 PM EDT Appointment Nuclear Medicine at [place] [phone] [place] [address] 10/21/2023 2:30 PM EDT Appointment [place] [address] [place] [address] 10/26/2023 4:00 PM EDT Office Visit Cardiology at [address] [address] Jaspreet Kinsey MD [facility] [place] [address] 10/28/2023 9:00 AM EDT Office [place] [address] 10/29/2023 10:00 AM EDT Clinical [place] [address] 10/29/2023 10:15 AM EDT Procedure [place] [address] 11/01/2023 5:00 PM EDT Office [place] [address] Selene Browning, PhD [facility] [place] [address] 11/22/2023 4:40 PM EDT Office Visit Cardiology at [address] [phone] Porsha Mcdaniels MD [facility] [place] [address] 12/13/2023 10:00 AM EDT Clinical [place] [phone] [facility] [place] [address] documented as of this encounter Visit Diagnoses Not on filedocumented in this encounter Care Teams Salesperson Yard Goods Relationship Specialty Start Date End Date Tim Rogers DNP PCP - General Family Medicine 08/28/19 06/08/21 documented as of this encounter
--- OUTSIDE RECORDS SUMMARY | 2023-10-20 20:01 | XMS_ITS | Encounter Summary ---
[place] [address] Care Team Providers Care Human Resources Operations Specialist Name Role Phone Tim Rogers DNP Primary Care Provider Encounter Details Date Type Department Care Team (Late st Contact Info) Description 05/02/2021 Ancillary Procedure [place] [address] Tim Rogers DNP [address] [place], [place] [id number] Social History Tobacco Use Types Packs/Day Years [...] AM EDT Hospital Encounter [place] [address]1000 Mary [place] [address] 10/21/2023 11:30 AM EDT Appointment [place] [address] Mary Reyes [facility] [place] [address] 10/21/2023 12:30 PM EDT Appointment [place] [address] Mary Reyes [facility] [address] 10/21/2023 1:30 PM EDT Appointment [place] [address] Mary Reyes [facility] [place] [address] 10/21/2023 2:30 PM EDT Appointment [place] [address] [place] [address] 10/26/2023 4:00 PM EDT Office Visit Cardiology at [address] [phone] Jaspreet Kinsey MD [facility] [place] [address] 10/28/2023 9:00 AM EDT Office [place] [address] 10/29/2023 10:00 AM EDT Clinical [place] [address] 10/29/2023 10:15 AM EDT Procedure [place] [address] 11/01/2023 5:00 PM EDT Office Visit Gastroenterology at [place] [phone] Selene Browning, PhD [facility] [place] [address] 11/22/2023 4:40 PM EDT Office Visit Cardiology at [address] [phone] Porsha Mcdaniels MD [facility] [place] [address] 12/13/2023 10:00 AM EDT Clinical Support [place] [address] [facility] [place] [address] documented as of this encounter Procedures Procedure Name Priority Date/Time Associated Diagnosis Comments FILM LIBRARY STORAGE ONLY DX CHEST Routine 05/02/2021 12:00 AM EST documented in this encounter Results * Film Library- Storage Only DX Chest (05/02/2021 12:00 AM EST) Narrative [facility] - 05/30/2021 2:33 PM EDT This exam is auto-finalizing. It's purpose is for storage only. Tim Rogers DNP IM FILM LIBRARY OR DERABLES [place], [place] documented in this encounter Visit Diagnoses Not on filedocumented in this encounter Care Teams Human Resources Operations Specialist Relationship Specialty Start Date End Date Tim Rogers DNP PCP - General Family Medicine 08/28/19 06/08/21 documented as of this encounter
--- OUTSIDE RECORDS SUMMARY | 2023-10-20 20:01 | XMS_ITS | Encounter Summary ---
Author Organization [facility] [place] [address] Care Team Providers Care Clinic Nurse Name Role Phone Tim Rogers DNP Primary Care Provider [phone] Encounter Details Date Type Department Care Team (Late st Contact Info) Description 09/09/2020 Telephone [place] [address] Beto Miller MD [facility] [place] [address] Social History Tobacco Use Types Packs/Day Years [...] ?? I reviewed CT scans performed in [facility] in 2019 (w/contrast) and April 2020 [...] the 2020 CT given the motion artifacts. Topology Professor images are below Combination of eosinophilia, adenopathy, [...] Diff) Please fax results to Dr Miller [phone] Standing Status: Future Standing Expiration Date: 03/11/2021 ??? Basic Metabolic Panel (non-fasting) Please fax results to Dr Miller [phone] Standing Status: Future Standing Expiration Date: 03/11/2021 ??? KATHRINE ([facility]/CGP/APD/NLH) Please fax results to Dr Miller [phone] Standing Status: Future Standing Expiration Date: 03/11/2021 ??? Extractable Nuclear Antigen (JENNA) Ab Please fax results to Dr Miller [phone] Standing Status: Future Standing Expiration Date: 03/11/2021 ??? Angiotensin Converting Enzyme Please fax results to Dr Miller [phone] Standing Status: Future Standing Expiration Date: 03/11/2021 ??? CRP, acute inflammation Please fax results to Dr Miller [phone] Standing Status: Future Standing Expiration Date: 03/11/2021 ??? Cytoplasmic Neutrophilic Ab Please fax results to Dr Miller [phone] Standing Status: Future Standing Expiration Date: 09/09/2021 ??? Myeloperoxidase Ab Please fax results to Dr Miller [phone] Standing Status: Future Standing Expiration Date: 09/09/2021 ??? Proteinase-3 Antibody Please fax results to Dr Miller [phone] Standing Status: Future Standing Expiration Date: 09/09/2021 ??? Immunoglobulin E (IgE) Please fax results to Dr Miller [phone] Standing Status: Future Standing Expiration Date: 09/09/2021 ??? Immunoglobulins, Quantitative Standing Status: Future Standing Expiration Date: 09/09/2021 documented in this encounter Plan of Treatment Upcoming Encounters Date Type Department Care Team (Late st Contact Info) Description 10/21/2023 10:30 AM EDT Hospital Encounter [place] [address] Mary Reyes [facility] [place] [address] 10/21/2023 11:30 AM EDT Appointment [place] [address] Mary Reyes [facility] [place] [address] 10/21/2023 12:30 PM EDT Appointment [place] [address] Mary Reyes [facility] [place] [address] 10/21/2023 1:30 PM EDT Appointment [place] [address] [place] [address] 10/21/2023 2:30 PM EDT Appointment [place] [address] [place] [address] 10/26/2023 4:00 PM EDT Office Visit Cardiology at [address] [phone] Jaspreet Kinsey MD [facility] [place] [address] 10/28/2023 9:00 AM EDT Office Visit [place] [address] 10/29/2023 10:00 AM EDT Clinical Support [place] [address] 10/29/2023 10:15 AM EDT Procedure visit [place] [address] 11/01/2023 5:00 PM EDT Office Visit [place] [address] Selene Browning, PhD [facility] [place] [address] 11/22/2023 4:40 PM EDT Office Visit Cardiology at [address] [phone] Porsha Mcdaniels MD [facility] [place] [address] 12/13/2023 10:00 AM EDT Clinical Support [place] [address] Lucero Romero, [facility] [place] [address] documented as of this encounter Visit Diagnoses Diagnosis Acute recurrent sinusitis, unspecified location RAVI (dyspnea on exertion) Other dyspnea and respiratory abnormality Abnormal CT of the chest Nonspecific (abnormal) findings on radiological and other examination of other intrathoracic organs documented in this encounter Care Teams Clinic Nurse Relationship Specialty Start Date End Date Tim Rogers DNP PCP - General Family Medicine 08/28/19 06/08/21 documented as of this encounter
--- OUTSIDE RECORDS SUMMARY | 2023-10-20 20:01 | XMS_ITS | Encounter Summary ---
Author Organization [facility] [place] [address] Care Team Providers Care Lining Printer Name Role Phone Tim Rogers DNP Primary Care Provider Reason for Visit * Diagnostic Test (Routine) - Closed Specialty Diagnoses / Procedures Referred By Jayant harris Referred To Contact Cardiology Diagnoses Palpitations Procedures Ziopatch 48 Hrs-15 Days Beto Miller MD [facility] [place] [address] [facility] [place] [address] Referral ID Status Reason Start Date Expiration Date V isits Requested Visits Authorized [id number] Closed Specialty Service Requested 10/28/2020 03/07/2021 1 1 Encounter Details Date Type Department Care Team (Latest Contact Info) Description 10/28/2020 8:00 AM EDT - 10/28/2020 11:59 PM EDT Hospital Encounter Non-[place] [address] Beto Miller MD [facility] [place] [address] Palpitations Discharge Disposition: Home Social [...] as needed. fluticasone propionate (FLONASE) 50 mcg/actuation [place], Suspension 1 spray by Each Nare route [...] AM EDT Hospital Encounter [place] [address] Mary Reyes [facility] [place] [address] 10/21/2023 11:30 AM EDT Appointment [place] [address] [place] [address] 10/21/2023 12:30 PM EDT Appointment [place] [address] [place] [address] 10/21/2023 1:30 PM EDT Appointment [place] [address] Mary Reyes [facility] [place] [address] 10/21/2023 2:30 PM EDT Appointment [place] [address] Mary Reyes [facility] [place] [address] 10/26/2023 4:00 PM EDT Office Visit Cardiology at [address] [address] Jaspreet Kinsey MD [facility] [address] 10/28/2023 9:00 AM EDT Office Visit [place] [address] 10/29/2023 10:00 AM EDT Clinical Support [place] [address] 10/29/2023 10:15 AM EDT Procedure visit [place] [address] 11/01/2023 5:00 PM EDT Office [place] [address] Selene Browning, PhD [facility] [address] 11/22/2023 4:40 PM EDT Office Visit Cardiology at [address] [address] Porsha Mcdaniels MD [facility] [address] 12/13/2023 10:00 AM EDT Clinical Support [place] [address] [facility] [place] [address] documented as of this encounter Procedures Procedure [...] Palpitations documented in this encounter Care Teams Lining Printer Relationship Specialty Start Date End Date Tim Rogers DNP PCP - General Family Medicine 08/28/19 06/08/21 documented as of this encounter
--- OUTSIDE RECORDS SUMMARY | 2023-10-20 20:01 | XMS_ITS | Encounter Summary ---
[place] [address] Care Team Providers Care Property Loss Insurance Claim Adjuster Name Role Phone Tim Rogers DNP Primary Care Provider [phone] Encounter Details Date Type Department Care Team (Late st Contact Info) Description 05/30/2021 Telephone [place] [phone] Beryl Grider Social History Tobacco Use Types [...] Beryl Grider - 05/30/2021 11:10 AM EDTSummary: [facility] Per Dr. Miller via [place], needs images sent to our PACS system for mutual pt. Called PCP's (Polo Pearce) office at [facility] & Nayeli Martin in Radiology to Assist in sending images of chest x- ray from May 03 & CT scan of abdomen ( maybe chest) from May 27 to our PACS system with Pulm # [phone] opt 1 documented in this encounter Plan of Treatment Upcoming Encounters Date Type Department Care Team (Late st Contact Info) Description 10/21/2023 10:30 AM EDT Hospital [place] [address] [facility] [place] [address] 10/21/2023 11:30 AM EDT [place] [address] [place] [address] 10/21/2023 12:30 PM EDT App[place] [address] [facility] [place] [address] 10/21/2023 1:30 PM EDT Appointment [place] [address] [facility] [place] [address] 10/21/2023 2:30 PM EDT Appointment [place] [address] [facility] [place] [address] 10/26/2023 4:00 PM EDT Office Visit Cardiology at [address] [address] Jaspreet Kinsey MD [facility] [place] [address] 10/28/2023 9:00 AM EDT Office [place] [address] 10/29/2023 10:00 AM EDT Clinical [place] [address] 10/29/2023 10:15 AM EDT Procedure [place] [address] 11/01/2023 5:00 PM EDT Office Visit [place] [phone] Selene Browning, PhD [facility] [place] [address] 11/22/2023 4:40 PM EDT Office Visit Cardiology at [address] [phone] Porsha Mcdaniels MD [facility] [place] [address] 12/13/2023 10:00 AM EDT Clinical Support [place] [phone] Lucero Romero, [place] [facility] [place] [address] documented as of this encounter Visit Diagnoses Not on filedocumented in this encounter Care Teams Property Loss Insurance Claim Adjuster Relationship Specialty Start Date End Date Tim Rogers DNP PCP - General Family Medicine 08/28/19 06/08/21 documented as of this encounter
--- OUTSIDE RECORDS SUMMARY | 2023-10-20 20:01 | XMS_ITS | Encounter Summary ---
[place] [address] Care Team Providers Care Machine Design Checker Name Role Phone Tim Rogers DNP Primary Care Provider [phone] Encounter Details Date Type Department Care Team (Late st Contact Info) Description 05/28/2021 Telephone [place] [phone] Beryl Grider Social History Tobacco Use Types [...] AM EDT Hospital En[place] [address] Mary Reyes [facility] [place] [address] 10/21/2023 11:30 AM EDT Appointment Nuclear Medicine at [place] [phone] Mary Reyes [facility] [place] [address] 10/21/2023 12:30 PM EDT Appointment Nuclear Medicine at [place] [phone] Mary Reyes [facility] [place] [address] 10/21/2023 1:30 PM EDT Appointment [place] [address] Mary Reyes [facility] [place] [address] 10/21/2023 2:30 PM EDT Appointment [place] [address] Mary Reyes [facility] [address] 10/26/2023 4:00 PM EDT Office Visit Cardiology at [address] [address] Jaspreet Kinsey MD [facility] [place] [address] 10/28/2023 9:00 AM EDT Office [place] [address] 10/29/2023 10:00 AM EDT Clinical [place] [address] 10/29/2023 10:15 AM EDT Procedure [place] [address] 11/01/2023 5:00 PM EDT Office [place] [address] Selene Browning, PhD [facility] [place] [address] 11/22/2023 4:40 PM EDT Office Visit Cardiology at [address] [address] Porsha Mcdaniels MD [facility] [place] [address] 12/13/2023 10:00 AM EDT Clinical Support [place] [address] Lucero Romero, RD [facility] [place] [address] documented as of this encounter Visit Diagnoses Not on filedocumented in this encounter Care Teams Machine Design Checker Relationship Specialty Start Date End Date Tim Rogers DNP PCP - General Family Medicine 08/28/19 06/08/21 documented as of this encounter
--- OUTSIDE RECORDS SUMMARY | 2023-10-20 20:01 | XMS_ITS | Encounter Summary ---
[place] [address] Care Team Providers Care Manager Brand Name Role Phone Tim Rogers DNP Primary Care Provider [phone] Encounter Details Date Type Department Care Team (Late st Contact Info) Description 07/12/2020 [place] [phone] Jo Ann Colon Social History Tobacco Use [...] AM EDT Hospital Encounter [place] [phone] Mary Reyes [employer] [place] [address] 10/21/2023 11:30 AM EDT Appointment [place] [address] Mary Reyes [employer] [facility] [place] [address] 10/21/2023 12:30 PM EDT Appointment [place] [address] Mary Reyes [facility] [place] [address] 10/21/2023 1:30 PM EDT Appointment [place] [address] Mary Reyes [facility] [place] [address] 10/21/2023 2:30 PM EDT Appointment [place] [address] [place] [address] 10/26/2023 4:00 PM EDT Office Visit Cardiology at [address] [phone] Jaspreet Kinsey MD [facility] [place] [address] 10/28/2023 9:00 AM EDT Office [place] [address] 10/29/2023 10:00 AM EDT Clinical [place] [address] 10/29/2023 10:15 AM EDT Procedure [place] [address] 11/01/2023 5:00 PM EDT Office [place] [address] Selene Browning, PhD [facility] [place] [address] 11/22/2023 4:40 PM EDT Office Visit Cardiology at [place] [phone] Porsha Mcdaniels MD [facility] [place] [address] 12/13/2023 10:00 AM EDT Clinical Support Gastroenterology at [place] [phone] Lucero Romero, [place] [facility] [place] [address] documented as of this encounter Visit Diagnoses Not on filedocumented in this encounter Care Teams Manager Brand Relationship Specialty Start Date End Date Tim Rogers DNP PCP - General Family Medicine 08/28/19 06/08/21 documented as of this encounter
--- OUTSIDE RECORDS SUMMARY | 2023-10-20 20:01 | XMS_ITS | Encounter Summary ---
[place] [address] Care Team Providers Care Strip Machine Tender Name Role Phone Tim Rogers DNP Primary Care Provider [phone] Reason for Visit * Reason Onset Date Comments Other 10/25/2020 Regarding Ziopat ch Encounter Details Date Type Department Care Team (Late st Contact Info) Description 10/25/2020 Telephone [place] [phone] Olive Gonzales RN Other (Regarding Ziopatch) Social [...] reach out to Pt. Pt must call [phone] to request Ziopatch. Olive Gonzales RN Department of Pulmonary 5C, [facility] / Pager: [phone] documented in this encounter Plan of Treatment Upcoming Encounters Date Type Department Care Team (Late st Contact Info) Description 10/21/2023 10:30 AM EDT Hospital Encounter [place] [phone] [place] [address] 10/21/2023 11:30 AM EDT Appointment [place] [address] [place] [address] 10/21/2023 12:30 PM EDT Appointment [place] [address] [place] [address] 10/21/2023 1:30 PM EDT Appointment [place] [address] [place] [address] 10/21/2023 2:30 PM EDT Appointment [place] [address] [place] [address] 10/26/2023 4:00 PM EDT Office Visit Cardiology at [address] [phone] Jaspreet Kinsey MD [facility] [place] [address] 10/28/2023 9:00 AM EDT Office [place] [address] 10/29/2023 10:00 AM EDT Clinical [place] [address] 10/29/2023 10:15 AM EDT Procedure [place] [address] 11/01/2023 5:00 PM EDT Office [place] [address] Selene Browning, PhD [facility] [place] [address] 11/22/2023 4:40 PM EDT Office Visit Cardiology at [address] [phone] Porsha Mcdaniels MD [facility] [place] [address] 12/13/2023 10:00 AM EDT Clinical Support [place] [address] [facility] [place] [address] documented as of this encounter Visit Diagnoses Not on filedocumented in this encounter Care Teams Strip Machine Tender Relationship Specialty Start Date End Date Tim Rogers DNP PCP - General Family Medicine 08/28/19 06/08/21 documented as of this encounter
--- OUTSIDE RECORDS SUMMARY | 2023-10-20 20:02 | XMS_ITS | Encounter Summary ---
Author Organization [facility] Address [facility] [place] [address] Care Team Providers Care Bioinformatics Assistant Name Role Phone Dustin Romero MD Primary Care Provider [phone] Reason for Visit * Reason Comments Allergic Rhinitis Encounter Details Date Type Department Care Team (Late st Contact Info) Description 06/26/2010 9:15 AM EDT [place] [address] Lashonda York MD [facility] [address] [place] [address] Asthma (Primary Dx); Rhinitis; Rhinitis, nonallergic, chronic [...] patient is seen at the request of DUSTIN ROMERO MD for allergyevaluation.She relates a h/o [...] pollen: Axel Tree pollen: Birch, Shay, Maple, [place], Beech, [place]aca pollen: [place], Short Ragweed, Pigweed, Molds: [...] in the care of this patient. CC: DUSTIN ROMERO MD documented in this encounter Plan of Treatment Upcoming Encounters Date Type Department Care Team (Late st Contact Info) Description 10/21/2023 10:30 AM EDT Hospital Encounter [place] [address] Mary Reyes [employer] [place] [address] 10/21/2023 11:30 AM EDT Appointment [place] [address] [place] [address] 10/21/2023 12:30 PM EDT Appointment [place] [address] [place] [address] 10/21/2023 1:30 PM EDT Appointment [place] [address] [place] [address] 10/21/2023 2:30 PM EDT Appointment [place] [address] Mary Reyes, [place] [address] 10/26/2023 4:00 PM EDT Office Visit Cardiology at [address] [address] Jaspreet Kinsey MD [facility] [place] [address] 10/28/2023 9:00 AM EDT Office [place] [address] 10/29/2023 10:00 AM EDT Clinical [place] [address] 10/29/2023 10:15 AM EDT Procedure [place] [address] 11/01/2023 5:00 PM EDT Office [place] [address] Selene Browning, PhD [facility] [place] [address] 11/22/2023 4:40 PM EDT Office Visit Cardiology at [address] [address] Porsha Mcdaniels MD [facility] [place] [address] 12/13/2023 10:00 AM EDT Clinical [place] [phone] [facility] [place] [address] Scheduled Orders Name Type Priority Associated Diagnoses Orde r Schedule Spirometry without bronchodilator PFT Routine Asthma Ordered: 06/26/2010 documented as of this encounter Visit Diagnoses Diagnosis Asthma- Primary Unspecified asthma Rhinitis Chronic rhinitis Rhinitis, nonallergic, chronic Chronic rhinitis documented in this encounter Care Teams Bioinformatics Assistant Relationship Specialty Start Date End Date Dustin Romero MD [facility] [place] [address] PCP - General 06/11/10 08/27/19 documented as of this encounter
--- OUTSIDE RECORDS SUMMARY | 2023-10-20 20:02 | XMS_ITS | Encounter Summary ---
[place] [address] Care Team Providers Care Chemical Maker Name Role Phone Tim Rogers DNP Primary Care Provider [phone] Encounter Details Date Type Department Care Team (Late st Contact Info) Description 08/28/2019 Ancillary Procedure [place] [phone] Veronica Bello APRN [address] [place] [phone] Social History Tobacco Use Types Packs/Day Years [...] AM EDT Hospital Encounter [place] [address] [place] [address] 10/21/2023 11:30 AM EDT Appointment [place] [phone] [place] [address] 10/21/2023 12:30 PM EDT Appointment [place] [address] Mary Reyes [facility] [place] [address] 10/21/2023 1:30 PM EDT Appointment [place] [address] [place] [address] 10/21/2023 2:30 PM EDT Appointment [place] [address] [place] [address] 10/26/2023 4:00 PM EDT Office Visit Cardiology at [address] [phone] Jaspreet Kinsey MD [facility] [place] [address] 10/28/2023 9:00 AM EDT Office [place] [address] 10/29/2023 10:00 AM EDT Clinical [place] [address] 10/29/2023 10:15 AM EDT Procedure [place] [address] 11/01/2023 5:00 PM EDT Office Visit [place] [address] Selene Browning, PhD [facility] [place] [address] 11/22/2023 4:40 PM EDT Office Visit Cardiology at [address] [address] Porsha Mcdaniels MD [facility] [place] [address] 12/13/2023 10:00 AM EDT Clinical [place] [address] [facility] [place] [address] documented as of this encounter Procedures Procedure Name Priority Date/Time Associated Diagnosis Comments FILM LIBRARY STORAGE ONLY DX CHEST Routine 08/28/2019 12:00 AM EDT documented in this encounter Results * Film Library- Storage Only DX Chest (08/28/2019 12:00 AM EDT) Narrative [facility] - 08/29/2019 1:45 PM EDT This exam is auto-finalizing. It's purpose is for storage only. Veronica Bello APRN IMG FILM LIBRARY ORD ERABLES [place], [place] documented in this encounter Visit Diagnoses Not on filedocumented in this encounter Care Teams Chemical Maker Relationship Specialty Start Date End Date Tim Rogers DNP PCP - General Family Medicine 08/28/19 06/08/21 documented as of this encounter
--- OUTSIDE RECORDS SUMMARY | 2023-10-20 20:02 | XMS_ITS | Encounter Summary ---
Author Organization [facility] [place] [address] Care Team Providers Care Plant Mechanic Name Role Phone Tim Rogers DNP Primary Care Provider [phone] Encounter Details Date Type Department Care Team (Late st Contact Info) Description 08/28/2019 External [place] [address] Social History Tobacco Use Types Packs/Day Years [...] AM EDT Hospital Encounter [place] [address] [place] [address] 10/21/2023 11:30 AM EDT Appointment [place] [address] [place] [address] 10/21/2023 12:30 PM EDT Appointment [place] [address] Mary Reyes [employer] [place] [address] 10/21/2023 1:30 PM EDT Appointment [place] [address] Mary Reyes [employer] [place] [address] 10/21/2023 2:30 PM EDT Appointment [place] [address] [place] [address] 10/26/2023 4:00 PM EDT Office Visit Cardiology at [address] [phone] Jaspreet Kinsey MD [facility] [place] [address] 10/28/2023 9:00 AM EDT Office [place] [address] 10/29/2023 10:00 AM EDT Clinical Support [place] [address] 10/29/2023 10:15 AM EDT Procedure [place] [address] 11/01/2023 5:00 PM EDT Office Visit [place] [address] Selene Browning, PhD [facility] [place] [address] 11/22/2023 4:40 PM EDT Office Visit Cardiology at [address] [address] Porsha Mcdaniels MD [facility] [place] [address] 12/13/2023 10:00 AM EDT Clinical Support [place] [address] [facility] [place] [address] documented as of this encounter Procedures Procedure Name Priority Date/Time Associated Diagnosis Comments ECG SCAN Routine 08/28/2019 documented in this encounter Results * Scan Doc: ECG (08/28/2019) Historical Provider MD F[facility] MGT[facility] SCAN EX T ORDR/RSLT documented in this encounter Visit Diagnoses Not on filedocumented in this encounter Care Teams Plant Mechanic Relationship Specialty Start Date End Date Tim Rogers DNP PCP - General Family Medicine 08/28/19 06/08/21 documented as of this encounter
--- OUTSIDE RECORDS SUMMARY | 2023-10-20 20:02 | XMS_ITS | Encounter Summary ---
Author Organization [facility] [place] [address] Care Team Providers Care Medart Operator Name Role Phone Dustin Nino MD Primary Care Provider [phone] Encounter Details Date Type Department Care Team (Late st Contact Info) Description 06/17/2010 [place] [address] Lashonda York MD [facility] DR [place] [address] Social History Tobacco Use Types Packs/Day Years [...] AM EDT Hospital Encounter [place] [address] Mary Reyes APRN [facility] [place] [address] 10/21/2023 11:30 AM EDT Appointment [place] [address] Mary Reyes APRN [facility] [place] [address] 10/21/2023 12:30 PM EDT Appointment [place] [address] Mary Reyes [facility] [place] [address] 10/21/2023 1:30 PM EDT Appointment [place] [address] Mary Reyes [facility] [place] [address] 10/21/2023 2:30 PM EDT Appointment [place] [address] [place] [address] 10/26/2023 4:00 PM EDT Office Visit Cardiology at [address] [phone] Jaspreet Kinsey MD [facility] [place] [address] 10/28/2023 9:00 AM EDT Office [place] [address] 10/29/2023 10:00 AM EDT Clinical [place] [address] 10/29/2023 10:15 AM EDT Procedure [place] [address] 11/01/2023 5:00 PM EDT Office Visit [place] [address] Selene Browning, PhD [facility] [place] [address] 11/22/2023 4:40 PM EDT Office Visit Cardiology at [place] [phone] Porsha Mcdaniels MD [facility] [place] [address] 12/13/2023 10:00 AM EDT Clinical Support Gastroenterology at [place] [phone] Lucero Romero, [place] [facility] [place] [address] documented as of this encounter Visit Diagnoses Not on filedocumented in this encounter Care Teams Medart Operator Relationship Specialty Start Date End Date Dustin Nino MD [facility] 1 [facility] [place] [address] PCP - General 06/11/10 08/27/19 documented as of this encounter
--- OUTSIDE RECORDS SUMMARY | 2023-10-20 20:02 | XMS_ITS | Encounter Summary ---
[place] [address] Care Team Providers Care Shorthand Teacher Name Role Phone Tim Rogers DNP Primary Care Provider [phone] Reason for Visit * Auth/Cert Specialty Diagnoses / Procedures Referred By Jayant harris Referred To Contact Diagnoses NSTEMI (non-ST elevated myocardial infarction) NSTEMI Procedures EMERGNECY IPI Referral ID Status Reason Start Date Expiration Date Visits Re quested Visits Authorized [id number] 1 1 Encounter Details Date Type Department Care Team (Late st Contact Info) Description 08/30/2019 1:00 PM EDT - 08/30/2019 2:00 PM EDT Surgery [place] [phone] Jessee Malone MD [facility] [place] [address] CARDIAC CATHETERIZATION Social History Tobacco Use Types [...] this encounter Discharge Summaries * Natalia Urbina, EXPORT SALES MANAGER - 08/30/2019 5:18 PM EDT Images from the original note were not included. Discharge Summary Patient Name: Loida Roque Patient Age: 49 y.o. Language: Sri Lankan Race: White Ethnicity: Not nor Admit date: [...] follow-up visit please call one of the behavioral health care manager on Wednesday-Wednesday between the hours of 8A- 5PM. Cardiology Clinic number @ [phone] If off hours contact the cardiac fellow on- call. Hospital Carding Doubler can help you. Hospital phone number [phone] Return to work: In 1 week Drivin hours post catheterization Follow up Appointments: Doctor Where Phone # Date Time Bouchra Frias APRN [address] / [facility] [address] 09/13/19 8:30 Discharge References/Attachments None Discussed with MD Natalia Lira APRN Pager [phone] 08/31/2019 documented in this encounter Discharge Instructions * Discharge Instructions* Natalia Urbina APRN - 08/31/2019 3:54 PM EDT Call your doctor if: Chest pain, dyspnea, pain or swelling in legs occurs. If you have non-emergent questions, prior to your follow-up visit please call one of the behavioral health care manager on Wednesday-Wednesday between the hours of 8A- 5PM. Cardiology Clinic number @ [phone] If off hours contact the cardiac fellow on- call. Hospital Carding Doubler can help you. [facility] phone number [phone] Return to work: In 1 week Drivin hours post catheterization Follow up Appointments: Doctor Where Phone # Date Time Bouchra Frias APRN [address] / [facility] [id number] 09/13/19 8:30 * Attachments The following attachments cannot be sent through Care Everywhere. * Cardiac Catheterization: Left (Sri Lankan) documented in this encounter Medications at Time of Discharge Medication Sig Dispensed Refills Start Date End Date fluticasone propionate (FLONASE) 50 mcg/actuation [place], Suspension 1 spray by Each Nare route [...] Spirometry Patient Loida Roque 49 y.o. 1970 [id number] Spirometry Spirometry performed successfully. Waiting for read [...] Pt wheeled out of the unit with PAY AGENT. * Leonardo Jolly - 08/31/2019 12:25 PM EDT Nutrition Services Note - Low Nutrition Acuity Loida Roque is a 49 y.o. female Reason for intervention: education [facility] + NA Nutrition Plan: Patient states that she follows a low sodium restriction a home. Educational Material Guidelines for a Heart Healthy Lifestyle provided. Continue current diet. Educational Material provided. Monitor weight. Encourage good oral intake. Support and encouragement provided. Nutrition will continue to monitor and follow up with patient as needed. Active Orders Diet Daily Healthy Menu Choices/Cardiac diet ([facility]-Diet) Frequency: Effective Now Number of Occurrences: Until [...] consulted in the interim. Leonardo Jolly Pager: [phone] * Manish Benitez MD - 08/31/2019 9:33 AM EDT Images from the original note were not included. Inpatient Cardiology Progress Note Patient Name: Loida Roque Service: SCHOOL BASED THERAPIST / PA Responsible Attending: Manish Benitez [...] See remainder of report for additional findings. [facility] 08/29 Preliminary findings: Right dominant Normal [...] and no wall motions seen on echo. [facility] with normal cors and LVEDP 15. [...] Echo with EF 62% and no WMA [facility] with normal cors A1C 5.4% Bedside PFTs today ?? FULL CODE Discussed with MD Natalia Lira, EXPORT SALES MANAGER Pager [phone] 08/31/2019 Cardiology Attending Note I interviewed and examined the patient during comprehensive bedside rounds. I concur with the summary of interval events, active hospital-focused problem list and plan of care as described in the note below. I personally reviewed the medications, laboratory results, treatment decisions and updated the patient. Manish Benitez MD, FACP, FACC Section of Cardiovascular Medicine [facility] Truck Crane Operator Helperchief transfer and pumphouse operator [facility] This patient meets or has [...] Progress Note Patient Name: Loida Roque Service: SCHOOL BASED THERAPIST / PA Responsible Attending: Manish Benitez [...] IVP ; net negative 450 ml; await [facility] Aspirin 324/81mg Plavix 300/75 mg Heparin drip [...] MD, FACP, FACC Section of Cardiovascular Medicine [facility] Truck Crane Operator Helperchief transfer and pumphouse operator [facility] This patient meets or has [...] file Gets together: Not on file Attends faith service: Not on file Active member of [...] Not on file 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 fluticasone propionate (FLONASE) 50 mcg/actuation [place], Suspension 1 spray by Each Nare route [...] and patient asymptomatic at rest. DDimer positive [id number] CT-PE protocol completed. No PE or acute aortic pathology. She is transferred for furtherwork up of NSTEMI. Plan Echo and coronary angiography. TREATMENT PLAN: #NSTEMI Admit to cardiology Trend troponin - 1st negative at [facility] ProBNP 1242; Admit weight 207 lbs; Lasix [...] MD, FACP, FACC Section of Cardiovascular Medicine [facility] Truck Crane Operator Helperchief transfer and pumphouse operator [facility] This patient meets or has [...] Primary care provider on file: Tim Rogers, EXPORT SALES MANAGER [phone] Advance Directive on file and Code Status: Full Code Patient???s Functional Status: Independent w/o device Living Situation: lives with Boby Roque (Spouse) [phone] (M) at [address] [place] [id number] Supports: Boby, Mother son and daughter Assessment: Patient with no apparent RNCM/SW needs at this time. No housing, transportation, insurance, resources concerns identified at this time. Supports in place to achieve a safe post-hospital transition. No identified barriers to accessing necessary care and/or follow-up after discharge. Plan: Patient to d/c to home when medically ready. pest control service technician/Harness Racing Handicapper will continue to follow patient???s progress and remain available if situation changes for coordination of care, psychosocial support and/or discharge planning. Angela Loving RN * Brief Op Note - Jessee Mlaone MD - 08/30/2019 2:31 PM EDT Preliminary Cardiac Catheterization Procedure Note: Patient Name: Loida Roque : [id number] MR#: [id number] Case Date: 08/30/2019 Carding Doubler: Surgeon(s) and Role: * Jessee Malone MD - Primary * Luis Tatum PA - Fellow Preoperative diagnosis: ?CAD Postoperative diagnosis: * CAD * Procedure(s) performed: [facility] Coronary angio Access: Right radial A [...] for further details. JOCY Montaño 08/30/2019 Pager [phone] * Plan of Care - Efrain Verma [...] AM EDT Hospital Encounter [place] [address] [place] [address] 10/21/2023 11:30 AM EDT Appointment [place] [address] Mary Re[place] [address] 10/21/2023 12:30 PM EDT Appointment [place] [address] [place] [address] 10/21/2023 1:30 PM EDT Appointment [place] [address] [place] [address] 10/21/2023 2:30 PM EDT Appointment [place] [address] [place] [address] 10/26/2023 4:00 PM EDT Office Visit Cardiology at [address] [phone] Jaspreet Kinsey MD [facility] [place] [address] 10/28/2023 9:00 AM EDT Office [place] [address] 10/29/2023 10:00 AM EDT Clinical Support [place] [address] 10/29/2023 10:15 AM EDT Procedure visit [place] [address] 11/01/2023 5:00 PM EDT Office Visit [place] [address] Selene Browning, PhD [facility] [place] [address] 11/22/2023 4:40 PM EDT Office Visit Cardiology at [address] [phone] Porsha Mcdaniels MD [facility] [place] [address] 12/13/2023 10:00 AM EDT Clinical Support [place] [address] [facility] [place] [address] documented as of this encounter [...] 2:53 AM EDT DIFFERENTIAL, AUTOMATED Routine 08/30/19 20 2:53 AM EDT HC CBC,PLT & AUTO [...] (FVC >70%) Zoe Morocho MD Natalia Urbina APRN PFT ORDERABLES * EKG 12 Lead (08/31/2019 7:05 AM EDT) Ventricular rate 51 BPM MUSE SYSTEM Atrial Rate 51 BPM MUSE SYSTEM P-R Interval 186 ms MUSE SYSTEM QRS Duration 82 ms MUSE SYSTEM Q-T Interval 546 ms MUSE SYSTEM QTC Calculated (Bezet) 503 ms MUSE SYSTEM Calculated P [place] 18 degrees MUSE SYSTEM Calculated R [place] 52 degrees MUSE SYSTEM Calculated T [place] 13 degrees MUSE SYSTEM INTERPRETATION Sinus bradycardia [...] (ABNORMAL) Differential, Automated (08/31/2019 4:12 AM EDT) Pathologist [facility] Neutrophil % 45.2 % [facility] Neutrophil Absolute 2.73 1.70 - 6.10 x10(3)/mc L [facility] Lymph % 34.8 % [facility] Lymphocytes Abs 2.1 0.9 - 3.2 x10(3)/mc L [facility] Monocyte % 10.1 % [facility] Monocyte Abs 0.6 0.3 - 0.9 x10(3)/mc L [facility] Eos % 8.9 % [facility] Eosinophils Abs 0.5(H) 0.0 - 0.4 x10(3)/mc L [facility] Basophil % 0.8 % [facility] Baso Absolute 0.0 0.0 - 0.1 x10(3)/mc L [facility] Immature Gran % 0.20 % [facility] Comment: Immature granulocytes(IG's)percentage and absolute count will include metamyelocytes, myelocytes, and promyelocytes. Blood smears from CBCs yielding IG's will be scanned manually for concordance. If this scan disagrees with the automated IG or if promyelocytes are noted, a manual differential will be performed. Immature Gran Absolute 0.01 0.00 - 0.04 x10(3)/mc L [facility] Blood specimen (specimen) 08/31/2019 4:12 AM EDT 08/31/2019 4:29 AM EDT Narrative Resulting Agency Comment Spec In Lab [place] SANDRA HEMATOLOGY ORDERABLE S [facility] [place] [address] * (ABNORMAL) Hemogram (08/31/2019 4:12 AM EDT) White Blood Cell 6.0 4.0 - 9.5 x10(3)/mc L [facility] Red Blood Cell 5.08 4.00 - 5.21 x10(6)/mc L [facility] Hemoglobin 15.7(H) 11.7 - 15.5 gm/dL [facility] Hematocrit 47.0(H) 35.7 - 45.8 % [facility] Mean Cell Volume 92.5 82.6 - 94.4 fL [facility] Mean Cell Hemoglobin 30.9 27.1 - 32.0 pg [facility] Mean Cell Hemoglobin Concentration 33.4 31.7 - 35.0 gm/dL [facility] Platelet 255 145 - 357 x10(3)/mc L [facility] RDW Standard Deviation 45.3 37.0 - 46.0 fL [facility] RDW coefficient of variation 13.2 11.5 - 14.1 % [facility] Mean Platelet Volume 11.4 7.6 - 12.9 fL [facility] NRBC% auto 0.0 % [facility] NRBC Absolute 0.000 0.000 - 0.000 x10(3)/mc L [facility] Blood specimen (specimen) 08/31/2019 4:12 AM EDT 08/31/2019 4:29 AM EDT Narrative Resulting Agency Comment Spec In Lab [place] SANDRA HEMATOLOGY ORDERABLE S Performing Organization Address [facility] de Phone Number [facility] [place] [address] * Magnesium (08/31/2019 4:12 AM EDT) Magnesium 0.92 0.69 - 1.07 mmol/L [facility] Blood specimen (specimen) 08/31/2019 4:12 AM EDT 08/31/2019 4:29 AM EDT Narrative Resulting Agency Comment Spec In Lab Manish Benitez MD CHEMISTRY ORDERABL ES Performing Organization Address [facility] de Phone Number [facility] [place] [address] * (ABNORMAL) BMP w/fasting Glucose (08/31/2019 4:12 AM EDT) Glucose Fasting 91 65 - 99 mg/dL [facility] [...] of Diabetes Mellitus, Position Statement from the [employer]. ??Diabetes Care, Volume 33, Supplement 1, Mar 2009 Blood Urea Nitrogen 21(H) 8 - 18 mg/dL [facility] Creatinine 0.91 0.70 - 1.20 mg/dL [facility] Sodium 136 135 - 145 mmol/L [facility] [...] mmol/L [facility] Carbon Dioxide 18(L) 22 - 31 mmol/L [facility] Anion Gap 13 5 - 15 mmol/L [facility] Calcium 9.4 8.5 - 10.5 mg/dL [facility] Est Glomerular Filtration Rate 74 >=60 mL/min/1. 73 m?? [facility] Comment: The eGFR was calculated using the CKD-EPI equation. As with all creatinine based estimates of kidney function, eGFR values calculated with the CKD-EPI equation are not accurate in patients with acute kidney failure, extremes of body mass or the acutely ill. http://[employer]/[facility] eGFR 85 >=60 mL/min/1. 73 m?? [facility] Comment: The eGFR was calculated using the CKD-EPI equation. As with all creatinine based estimates of kidney function, eGFR values calculated with the CKD-EPI equation are not accurate in patients with acute kidney failure, extremes of body mass or the acutely ill. http://[employer]/[facility] Blood specimen (specimen) 08/31/2019 4:12 AM EDT 08/31/2019 4:29 AM EDT Narrative Resulting Agency Comment Spec In Lab Manish Benitez MD CHEMISTRY ORDERABL ES [facility] [place] [address] * CARDIAC CATHETERIZATION (08/30/2019 2:40 PM EDT) Anatomical Region Laterality Modality Other Narrative 08/30/2019 2:59 PM EDT ?[facility] ? Cardiac Catheterization/Intervention Report ? Patient Name: Neisha, Loida ? Procedure Date: 08/30/2019 ? A #: [id number] ? Primary Physician: Kira, Jessee T ? Case #: [id number] ? File Name: [id number] ? Catheterization Order Number: [id number] ? [facility] ? Final Report [place], [place] ? Patient Name: ? Loida Neisha ? ID#: ?[id number] ? : ?1970 ? Procedure Date: ? [...] procedure was Urgent. The indication for ?the manager cardiac cath visit is ACS less than or equal [...] Procedure Note Jessee Malone MD - 08/30/2019 [facility] Cardiac Catheterization/Intervention Report Patient Name: Loida Roque Procedure Date: 08/30/2019 A #: [id number] Primary Physician: Jessee Malone Case #: [id number] File Name: [id number] Catheterization Order Number: [id number] [facility] FinalReport [place], [place] Patient Name: Loida Roque ID#:[id number] :1970 Procedure Date: August 30, 2019 Case [...] was designated as ASA Class III. The [facility] clinical frailtyscale is 2: Well. Diagnostic Tests: Prior Coronary Angiography: LV ejection fraction within 6 months is 65%. Medications Prior to Procedure: Aspirin. Indications for Diagnostic Cath: The priority of the diagnostic procedure was Urgent. The indicationfor the manager cardiac cath visit is ACS less than or equal [...] COMPLETE W CONTRAST (08/30/2019 12:23 PM EDT) Pathologist [facility] 62 HEARTLAB SYSTEM Anatomical Region Laterality Modality Other 08/30/2019 Narrative 08/30/2019 2:22 PM EDT Procedure: ?Transthoracic Echocardiogram Patient: ?NEISHA LOIDA ?(Age): 1970(49y) Med Rec#: ? [id number] ?Sex: ?F ? Site Loc: ? [facility] ?Ht / Wt: ??163(cm)/94(kg) Pt. Loc: ?Adult Floor ? BSA: ?1.99 Study Date: ?? 08/30/2019 ?Pt. Type: Inpatient Tape: ? Referring: POOJA IYER J Reading: Jose Chambers ([id number]) Gta: Jaspreet Oneil RD Interpreting Fellow: Poncho Yates ([id number]) Diagnosis: *Non-ST elevation (NSTEMI) myocardial infarction (I21.4) [...] Vmax ?0.35 ? m/sec ? MV deceleration [id number] ?msec ? MV A-wave Vmax ?0.25 ? [...] ? Mid-Inferior ?Normal ? Mid-Inferoseptal ?Normal ? [place]-Septal ? Normal ? [place]-Anterior ? Normal ? [place]-Lateral ?Normal ? [place]-Inferior ? Normal ? [place]-Tip ?Normal ? This report has been electronically signed by: Jose Chambers MD ? 08/30/2019 14:21:57 Images reviewed and interpretation verified [facility] Cardiac Ultrasound Laboratory Procedure Note Jose Chambers MD - 08/30/2019 Procedure: Transthoracic Echocardiogram Patient: NEISHA VÁSQUEZ(Age): 1970(49y) Med Rec#: [id number] Sex: F Site Loc: [facility] Ht / Wt: 163(cm)/94(kg) Pt. Loc: Adult Floor BSA: 1.99 Study Date: 08/30/2019 Pt. Type: Inpatient Tape: Referring: POOJA IYER J Reading: Jose Chambers ([id number]) Gta: Jaspreet Oneil RD Interpreting Fellow: Poncho Yates ([id number]) Diagnosis: *Non-ST elevation (NSTEMI) myocardial infarction (I21.4) [...] MV E-wave Vmax 0.35 m/sec MV deceleration [id number] msec MV A-wave Vmax 0.25 m/sec MV [...] Normal Mid-Posterolateral Normal Mid-Inferior Normal Mid-Inferoseptal Normal [place]-Septal Normal [place]-Anterior Normal [place]-Lateral Normal [place]-Inferior Normal [place]-Tip Normal This report has been electronically signed by: Jose Chambers MD 08/30/2019 14:21:57 Images reviewed and interpretation verified [facility] Cardiac Ultrasound Laboratory Manish Benitez MD ECHO ORDERABLES * EKG 12 Lead (08/30/2019 10:28 AM EDT) Ventricular rate 52 BPM MUSE SYSTEM Atrial Rate 52 BPM MUSE SYSTEM P-R Interval 162 ms MUSE SYSTEM QRS Duration 84 ms MUSE SYSTEM Q-T Interval 536 ms MUSE SYSTEM QTC Calculated (Bezet) 498 ms MUSE SYSTEM Calculated P [place] -9 degrees MUSE SYSTEM Calculated R [place] 43 degrees MUSE SYSTEM Calculated T [place] -27 degrees MUSE SYSTEM INTERPRETATION Sinus bradycardia [...] Benitez MD ECG ORDERABLES Performing Organization Address [facility] de Phone Number MUSE SYSTEM * Heparin (unfractionated) Level (08/30/2019 2:53 AM EDT) [facility] UF Heparin 0.44 IU/mL [facility] Comment: [...] MD HEMATOLOGY ORDERAB LES Performing Organization Address [facility] de Phone Number [facility] [place] [address] * (ABNORMAL) Differential, Automated (08/30/2019 2:53 AM EDT) [facility] Neutrophil % 52.4 % [facility] Neutrophil Absolute 3.85 1.70 - 6.10 x10(3)/[facility] Lymph % 29.3 % [facility] Lymphocytes Abs 2.2 0.9 - 3.2 x10(3)/[facility] Monocyte % 9.1 % [facility] Monocyte Abs 0.7 0.3 - 0.9 x10(3)/[facility]ORAT[facility] Eos % 8.6 % [facility] Eosinophils Abs 0.6(H) 0.0 - 0.4 x10(3)/[facility] LABORATORY Basophil % 0.5 % [facility] Baso Absolute 0.0 0.0 - 0.1 x10(3)/[facility]ORAT[facility] Immature Gran % 0.10 % [facility] Comment: Immature granulocytes(IG's)percentage and absolute count will include metamyelocytes, myelocytes, and promyelocytes. Blood smears from CBCs yielding IG's will be scanned manually for concordance. If this scan disagrees with the automated IG or if promyelocytes are noted, a manual differential will be performed. Immature Gran Absolute 0.01 0.00 - 0.04 x10(3)/[facility] Blood specimen (specimen) 08/30/2019 2:53 AM EDT 08/30/2019 3:01 AM EDT Narrative Resulting Agency Comment Spec In Lab [place] SANDRA HEMATOLOGY ORDERABLE S [facility] [place] [address] * (ABNORMAL) Hemogram (08/30/2019 2:53 AM EDT) White Blood Cell 7.4 4.0 - 9.5 x10(3)/[facility] LABORATORY Red Blood Cell 4.84 4.00 - 5.21 x10(6)/[facility]ORATORY Hemoglobin 14.8 11.7 - 15.5 gm/dL [facility] Hematocrit 44.8 35.7 - 45.8 % [facility] Mean Cell Volume 92.6 82.6 - 94.4 fL [facility] Mean Cell Hemoglobin 30.6 27.1 - 32.0 pg [facility] Mean Cell Hemoglobin Concentration 33.0 31.7 - 35.0 gm/dL [facility] Platelet 272 145 - 357 x10(3)/mc L [facility] RDW Standard Deviation 46.2(H) 37.0 - 46.0 fL [facility] RDW coefficient of variation 13.5 11.5 - 14.1 % [facility] Mean Platelet Volume 10.9 7.6 - 12.9 fL [facility] NRBC% auto 0.0 % [facility] NRBC Absolute 0.000 0.000 - 0.000 x10(3)/mc L [facility] Blood specimen (specimen) 08/30/2019 2:53 AM EDT 08/30/2019 3:01 AM EDT Narrative Resulting Agency Comment Spec In Lab [place] SANDRA HEMATOLOGY ORDERABLE S Performing Organization Address City/[facility]/ZIP Co de Phone Number [facility] [place] [address] * Magnesium (08/30/2019 2:53 AM EDT) Magnesium 0.90 0.69 - 1.07 mmol/L [facility] Blood specimen (specimen) 08/30/2019 2:53 AM EDT 08/30/2019 3:01 AM EDT Narrative Resulting Agency Comment Spec In Lab Manish Benitez MD CHEMISTRY ORDERABL ES Performing Organization Address City/[facility]/ZIP Co de Phone Number [facility] [place] [address] * (ABNORMAL) BMP w/fasting Glucose (08/30/2019 2:53 AM EDT) Glucose Fasting 102(H) 65 - 99 mg/dL [facility] [...] of Diabetes Mellitus, Position Statement from the [employer]. ??Diabetes Care, Volume 33, Supplement 1, Mar 2009 Blood Urea Nitrogen 18 8 - 18 mg/dL [facility] Creatinine 1.09 0.70 - 1.20 mg/dL [facility] [...] questions. Chloride 103 98 - 107 mmol/L [facility] Carbon Dioxide 19(L) 22 - 31 mmol/L [facility] Anion Gap 17(H) 5 - 15 mmol/L [facility] Calcium 9.0 8.5 - 10.5 mg/dL [facility] Est Glomerular Filtration Rate 59(L) >=60 mL/min/1. 73 m?? [facility] Comment: The eGFR was calculated using the CKD-EPI equation. As with all creatinine based estimates of kidney function, eGFR values calculated with the CKD-EPI equation are not accurate in patients with acute kidney failure, extremes of body mass or the acutely ill. http://[employer]/[facility] eGFR 69 >=60 mL/min/1. 73 m?? [facility] Comment: The eGFR was calculated using the CKD-EPI equation. As with all creatinine based estimates of kidney function, eGFR values calculated with the CKD-EPI equation are not accurate in patients with acute kidney failure, extremes of body mass or the acutely ill. http://[employer]/[facility] – LAWTONnkf Blood specimen (specimen) 08/30/2019 2:53 AM EDT 08/30/2019 3:01 AM EDT Narrative Resulting Agency Comment Spec In Lab Manish Benitez MD CHEMISTRY ORDERABL ES Performing Organization Address [facility] Co de Phone Number [facility] [place] [address] * Triglyceride (08/30/2019 2:53 AM EDT) Triglyceride 203 mg/dL [facility] Comment: Average Risk/Lower Risk: <150 mg/dL Borderline High Risk: 150-199 mg/dL High Risk: 200-499 mg/dL Very High Risk: >de=777 mg/dL Blood specimen (specimen) 08/30/2019 2:53 AM EDT 08/30/2019 3:01 AM EDT Narrative Resulting Agency Comment Spec In Lab Manish Benitez MD CHEMISTRY ORDERABL ES Performing Organization Address City/[facility]/ZIP Co de Phone Number [facility] [place] [address] * HDL/Cholesterol Profile (08/30/2019 2:53 AM EDT) Cholesterol, Total 220 mg/dL [facility] Comment: Lower Risk: <200 mg/dL Average Risk: 200-239 mg/dL Higher Risk: >xb=279 mg/dL HDL Cholesterol 34 mg/dL [facility] Comment: Males: ?? Higher Risk: <40 mg/dL Females: ?? HIgher Risk: <50 mg/dL Cholesterol/HDL Ratio 6.5 ratio [facility] Chol/HDL Interpretation See Note [facility] Comment: Lipid management should be guided by a patient? s ASCVD risk, goals and preferences. ACC/AHA Guidelines recommend high intensity statin if clinical ASCVD or LDL greater than or equal to 190 mg/dL. http://Zervant.com/UMT-QXE-Tdtjuiwba Measure LDL if Total Cholesterol minus HDL Cholesterol is greater than 220 mg/dL. Adults aged 40-75 with LDL 70-189 mg/dL should have their 10 year ASCVD risk estimated with the ACC/AHA ASCVD risk production cost estimator http://tools.acc.org/QHRAX-Sinz-Ngonqvnfg/ Statin should be discussed if risk greater [...] CHEMISTRY ORDERABL ES Performing Organization Address [facility] de Phone Number [facility] [place] [address] * LDL Cholesterol, Direct (08/30/2019 2:53 AM EDT) LDL Cholesterol, Direct 165 mg/dL [facility] Comment: Lowest Risk: <100 mg/dL Lower Risk: 100-129 mg/dL Borderline High Risk: 130-159 mg/dL High Risk: 160-189 mg/dL Very High Risk: >pr=779 mg/dL Blood specimen (specimen) 08/30/2019 2:53 AM EDT 08/30/2019 3:01 AM EDT Narrative Resulting Agency Comment Spec In Lab Manish Benitez MD CHEMISTRY ORDERABL ES [facility] [place] [address] * Hemoglobin A1c (08/30/2019 2:53 AM EDT) Hemoglobin A1c 5.4 4.3 - 5.6 % [facility] [...] Mellitus, Diabetes Care 2013; 36: Suppl. 1, B87-76 Estimated Average Glucose 108 mg/dL [facility] Comment: eAG [...] into estimated average glucose values. ??Diabetes Care 2008:31(8):2115-3481. Blood specimen (specimen) 08/30/2019 2:53 AM EDT 08/30/2019 3:01 AM EDT Narrative Resulting Agency Comment Spec In Lab Manish Benitez MD CHEMISTRY ORDERABL ES Performing Organization Address [facility] Co de Phone Number [facility] [place] [address] * CK (08/30/2019 2:53 AM EDT) Creatine Kinase 82 0 - 160 unit/L [facility] Blood specimen (specimen) 08/30/2019 2:53 AM EDT 08/30/2019 3:01 AM EDT Narrative Resulting Agency Comment Spec In Lab Manish Benitez MD CHEMISTRY ORDERABL ES Performing Organization Address [facility] de Phone Number [facility] [place] [address] * Troponin (08/30/2019 2:53 AM EDT) Pathologist [facility] [place] Troponin-T <0.01 0.00 - 0.00 ng/mL [facility] Comment: The 99th percentile [...] ischemia ?? New or presumed new significant XK-wyxfohj-O wave (ST-T) changes or new left bundle [...] additional sample may be indicated. Reference: Third [place] Definition of Myocardial Infarction. Journal of the [employer] College [employer]iology 2012;60:1581-98 Blood specimen (specimen) 08/30/2019 2:53 AM EDT 08/30/2019 3:01 AM EDT Narrative Resulting Agency Comment Spec In Lab Manish Benitez MD CHEMISTRY ORDERABL ES [facility] [place] [address] * (ABNORMAL) Differential, Automated (08/29/2019 8:30 PM EDT) Neutrophil % 56.5 % [facility] Neutrophil Absolute 3.58 1.70 - 6.10 x10(3)/ L [facility] Lymph % 25.9 % [facility] Lymphocytes Abs 1.6 0.9 - 3.2 x10(3)/[facility] Monocyte % 8.8 % [facility] Monocyte Abs 0.6 0.3 - 0.9 x10(3)/ L [facility] Eos % 7.7 % [facility] Eosinophils Abs 0.5(H) 0.0 - 0.4 x10(3)/[facility] Basophil % 0.8 % [facility] Baso Absolute 0.0 0.0 - 0.1 x10(3)/ L [facility] Immature Gran % 0.30 % [facility] Comment: Immature granulocytes(IG's)percentage and absolute count will include metamyelocytes, myelocytes, and promyelocytes. Blood smears from CBCs yielding IG's will be scanned manually for concordance. If this scan disagrees with the automated IG or if promyelocytes are noted, a manual differential will be performed. Immature Gran Absolute 0.02 0.00 - 0.04 x10(3)/mc L [facility] Blood specimen (specimen) 08/29/2019 8:30 PM EDT 08/29/2019 9:11 PM EDT Narrative Resulting Agency Comment Spec In Lab Abeba SANDRA HEMATOLOGY ORDERABLE S [facility] [place] [address] * (ABNORMAL) Hemogram (08/29/2019 8:30 PM EDT) White Blood Cell 6.3 4.0 - 9.5 x10(3)/mc L [facility] Red Blood Cell 5.03 4.00 - 5.21 x10(6)/mc L [facility] Hemoglobin 15.3 11.7 - 15.5 gm/dL [facility] Hematocrit 46.4(H) 35.7 - 45.8 % [facility] Mean Cell Volume 92.2 82.6 - 94.4 fL [facility] Mean Cell Hemoglobin 30.4 27.1 - 32.0 pg [facility] Mean Cell Hemoglobin Concentration 33.0 31.7 - 35.0 gm/dL [facility] Platelet 267 145 - 357 x10(3)/mc L [facility] RDW Standard Deviation 46.4(H) 37.0 - 46.0 fL [facility] RDW coefficient of variation 13.6 11.5 - 14.1 % [facility] Mean Platelet Volume 11.3 7.6 - 12.9 fL [facility] NRBC% auto 0.0 % [facility] NRBC Absolute 0.000 0.000 - 0.000 x10(3)/mc L [facility] Blood specimen (specimen) 08/29/2019 8:30 PM EDT 08/29/2019 9:11 PM EDT Narrative Resulting Agency Comment Spec In Lab Abeba SANDRA HEMATOLOGY ORDERABLE S [facility] [place] [address] * Heparin (unfractionated) Level (08/29/2019 8:30 PM EDT) UF Heparin 0.46 IU/mL [facility] Comment: [...] MD HEMATOLOGY ORDERAB LES Performing Organization Address [facility] de Phone Number [facility] [place] [address] * CK (08/29/2019 8:30 PM EDT) Creatine Kinase 94 0 - 160 unit/L [facility] Blood specimen (specimen) 08/29/2019 8:30 PM EDT 08/29/2019 9:11 PM EDT Narrative Resulting Agency Comment Spec In Lab Manish Benitez MD CHEMISTRY ORDERABL ES Performing Organization Address [facility] de Phone Number [facility] [place] [address] * Troponin (08/29/2019 8:30 PM EDT) Troponin-T <0.01 0.00 - 0.00 ng/mL [facility] Comment: The 99th percentile [...] ischemia ?? New or presumed new significant PO-feczfxy-X wave (ST-T) changes or new left bundle [...] additional sample may be indicated. Reference: Third [place] Definition of Myocardial Infarction. Journal of the [employer] College of Cardiology 2012;60:1581-98 Blood specimen (specimen) 08/29/2019 8:30 PM EDT 08/29/2019 9:11 PM EDT Narrative Resulting Agency Comment Spec In Lab Manish Benitez MD CHEMISTRY ORDERABL ES [facility] [place] [address] * EKG 12 Lead (08/29/2019 4:19 PM EDT) Pathologist [facility] [place] Ventricular rate 67 BPM MUSE SYSTEM Atrial Rate 67 BPM MUSE SYSTEM P-R Interval 164 ms MUSE SYSTEM QRS Duration 80 ms MUSE SYSTEM Q-T Interval 478 ms MUSE SYSTEM QTC Calculated (Bezet) 505 ms MUSE SYSTEM Calculated P [place] 34 degrees MUSE SYSTEM Calculated R [place] 30 degrees MUSE SYSTEM Calculated T [place] -29 degrees MUSE SYSTEM INTERPRETATION Demand pacemaker; [...] LABORATORY Neutrophil Absolute 3.79 1.70 - 6.10 x10(3)/[facility] Lymph % 22.7 % [facility] Lymphocytes Abs 1.5 0.9 - 3.2 x10(3)/[facility] Monocyte % 10.3 % [facility] Monocyte Abs 0.7 0.3 - 0.9 x10(3)/[facility] Eos % 7.8 % [facility] Eosinophils Abs 0.5(H) 0.0 - 0.4 x10(3)/[facility] Basophil % 0.6 % [facility] Baso Absolute 0.0 0.0 - 0.1 x10(3)/[facility] Immature Gran % 0.30 [...] Absolute 0.02 0.00 - 0.04 x10(3)/ L [facility] Blood specimen (specimen) 08/29/2019 3:10 PM EDT 08/29/2019 3:50 PM EDT Narrative Resulting Agency Comment Spec In Lab Abeba Merinobrenda SANDRA HEMATOLOGY ORDERABLE S [facility] [place] [address] * (ABNORMAL) Hemogram (08/29/2019 3:10 PM EDT) White Blood Cell 6.5 4.0 - 9.5 x10(3)/mc L [facility] Red Blood Cell 4.69 4.00 - 5.21 x10(6)/mc L [facility] Hemoglobin 14.1 11.7 - 15.5 gm/dL [facility] Hematocrit 43.8 35.7 - 45.8 % [facility] Mean Cell Volume 93.4 82.6 - 94.4 fL [facility] Mean Cell Hemoglobin 30.1 27.1 - 32.0 pg [facility] Mean Cell Hemoglobin Concentration 32.2 31.7 - 35.0 gm/dL [facility] Platelet 235 145 - 357 x10(3)/mc L [facility] RDW Standard Deviation 47.2(H) 37.0 - 46.0 fL [facility] RDW coefficient of variation 13.7 11.5 - 14.1 % [facility] Mean Platelet Volume 11.5 7.6 - 12.9 fL [facility] NRBC% auto 0.0 % [facility] NRBC Absolute 0.000 0.000 - 0.000 x10(3)/mc L [facility] Blood specimen (specimen) 08/29/2019 3:10 PM EDT 08/29/2019 3:50 PM EDT Narrative Resulting Agency Comment Spec In Lab Abeba Merinobrenda SANDRA HEMATOLOGY ORDERABLE S Performing Organization Address City/[facility]/ZIP Co de Phone Number [facility] [place] [address] * Hepatic Function Panel (08/29/2019 3:10 PM EDT) Pathologist [facility] [place] Protein, Total 7.1 6.1 - 8.0 gm/dL [facility] Albumin 4.0 3.2 - 5.2 gm/dL [facility] Aspartate Aminotransferase 25 0 - 30 unit/L [facility] Alanine Aminotransferase 19 0 - 30 unit/L [facility] Alkaline Phosphatase 49 35 - 105 unit/L [facility] Bilirubin, Total 0.7 0.2 - 1.3 mg/dL [facility] Bilirubin, Direct 0.1 0.0 - 0.3 mg/dL [facility] Blood specimen (specimen) 08/29/2019 3:10 PM EDT 08/29/2019 3:52 PM EDT Narrative Resulting Agency Comment Spec In Lab Manish Benitez MD CHEMISTRY ORDERABL ES Performing Organization Address [facility]/ZIP Co de Phone Number [facility] [place] [address] * TSH (08/29/2019 3:10 PM EDT) [facility] Thyroid Stimulating Hormone 1.87 0.27 - 4.20 mcIU/mL [facility] Blood specimen (specimen) 08/29/2019 3:10 PM EDT 08/29/2019 3:52 PM EDT Narrative Resulting Agency Comment Spec In Lab Mnaish Benitez MD CHEMISTRY ORDERABL ES Performing Organization Address City/[facility]/ZIP Co de Phone Number [facility] [place] [address] * (ABNORMAL) pro-Brain Natriuretic Peptide (08/29/2019 3:10 PM EDT) [facility] NT-proBNP 1,242(H) <=125 pg/mL [facility] Blood specimen (specimen) 08/29/2019 3:10 PM EDT 08/29/2019 3:52 PM EDT Narrative Resulting Agency Comment Spec In Lab Manish Benitez MD CHEMISTRY ORDERABL ES Performing Organization Address [facility] Co de Phone Number [facility] [place] [address] * CK (08/29/2019 3:10 PM EDT) Creatine Kinase 96 0 - 160 unit/L [facility] Blood specimen (specimen) 08/29/2019 3:10 PM EDT 08/29/2019 3:52 PM EDT Narrative Resulting Agency Comment Spec In Lab Manish Benitez MD CHEMISTRY ORDERABL ES Performing Organization Address [facility] de Phone Number [facility] [place] [address] * Troponin (08/29/2019 3:10 PM EDT) Troponin-T <0.01 0.00 - 0.00 ng/mL [facility] Comment: The 99th percentile [...] ischemia ?? New or presumed new significant XL-binfdyk-U wave (ST-T) changes or new left bundle [...] additional sample may be indicated. Reference: Third [place] Definition of Myocardial Infarction. Journal of the [employer] College [employer] Cardiology 2012;60:1581-98 Blood specimen (specimen) 08/29/2019 3:10 PM EDT 08/29/2019 3:52 PM EDT Narrative Resulting Agency Comment Spec In Lab Manish Benitez MD CHEMISTRY ORDERABL ES Performing Organization Address [facility] de Phone Number [facility] [place] [address] * (ABNORMAL) APTT (08/29/2019 3:10 PM EDT) Partial Thromboplastin Time 132(Criti edy) 25 - 37 sec [facility] Comment: Critical Result [...] MD HEMATOLOGY ORDERAB LES Performing Organization Address [facility] Co de Phone Number [facility] [place] [address] * (ABNORMAL) Prothrombin Time (08/29/2019 3:10 PM EDT) Prothrombin Time 13.3(H) 9.4 - 12.5 sec [facility] International Normalization Ratio 1.2 [facility] Comment: An INR [...] Lab Manish Benitez MD HEMATOLOGY ORDERAB LES [facility] [place] [address] * (ABNORMAL) Basic Metabolic Panel (non-fasting) (08/29/2019 3:10 PM EDT) Glucose 83 65 - 199 mg/dL [facility] Comment:Diabetes: >=200 mg/d L plus symptoms Blood Urea Nitrogen 15 8 - 18 mg/dL [facility] Creatinine 0.84 0.70 - 1.20 mg/dL [facility] [...] mmol/L [facility] Carbon Dioxide 19(L) 22 - 31 mmol/L [facility] Anion Gap 14 5 - 15 mmol/L [facility] Calcium 9.2 8.5 - 10.5 mg/dL [facility] Est Glomerular Filtration Rate 81 >=60 mL/min/1. 73 m?? [facility] Comment: The eGFR was calculated using the CKD-EPI equation. As with all creatinine based estimates of kidney function, eGFR values calculated with the CKD-EPI equation are not accurate in patients with acute kidney failure, extremes of body mass or the acutely ill. http://[employer]/DHnkf eGFR 94 >=60 mL/min/1. 73 m?? [facility] Comment: The eGFR was calculated using the CKD-EPI equation. As with all creatinine based estimates of kidney function, eGFR values calculated with the CKD-EPI equation are not accurate in patients with acute kidney failure, extremes of body mass or the acutely ill. http://[employer]/DHMCnkf Blood specimen (specimen) 08/29/2019 3:10 PM EDT 08/29/2019 3:52 PM EDT Narrative Resulting Agency Comment Spec In Lab Manish Benitez MD CHEMISTRY ORDERABL ES [facility] [place] [address] documented in this encounter Visit Diagnoses Not [...] area)1530 (MAR Unhold - Provider: Admin Adt) atorvastatin (Lipitor) tablet 80 mg (CANCELED) 80 mg, Oral, EVERY EVENING, First dose on Wed08/29/19 at 1715, Until Discontinued, Routine 1701 (Given - Provider: Mark Nick RN) 1357 (MAR Hold - Provider: Admin Adt - Reason: Transfer to a Procedural area)1530 (MAR Unhold - Provider: Admin Adt) clopidogreL (Plavix) tablet 75 mg (CANCELED) 75 mg, Oral, DAILY, First dose on Wed08/30/19 at 0900, Until Discontinued, Routine 0842 (Given - Provider: Mark Nick RN)1357 ([facility] Hold - Provider: Admin Adt - Reason: Transfer to a Procedural area)153 ([facility] Unhold - Provider: Admin Adt) DULoxetine DR (Cymbalta) capsule 60 mg 60 mg, Oral, NIGHTLY, First dose on Wed08/29/19 at 2100, Until Discontinued, Routine 2047 (Given - Provider: Efrain Verma RN) 1357 ([facility] Hold - Provider: Admin Adt - Reason: Transfer to a Procedural area)1530 ([facility] Unhold - Provider: Admin Adt)2029 (Given [...] 0842 (Given - Provider: Mark Nick RN)1357 ([facility] Hold - Provider: Admin Adt - Reason: Transfer to a Procedural area)153 ([facility] Unhold - Provider: Admin Adt)2029 (Given [...] OPEN, Routine 2047 (Given - Provider: Efrain Verma, ERWIN) 1357 (MAY Hold - Provider: Admin Adt - Reason: Transfer to a Procedural area)1530 (MAY Unhold - Provider: Admin Adt)2030 (Given [...] - Reason: Transfer to a Procedural area)1530 ([facility] Unhold - Provider: Admin Adt) fentaNYL [...] Wed08/29/19 at 1632, Until Wed08/31/19 at 2024, Sleep, insomnia, Routine 1357 (MAY Hold - [...] UA) documented in this encounter Care Teams Shorthand Teacher Relationship Specialty Start Date End Date Tim Rogers DNP PCP - General Family Medicine 08/28/19 06/08/21 documented as of this encounter
--- OUTSIDE RECORDS SUMMARY | 2023-10-20 20:02 | XMS_ITS | Encounter Summary ---
Author Organization [facility] [place] [address] Care Team Providers Care Sustainability Coordinator Name Role Phone Tim Rogers DNP Primary Care Provider [phone] Encounter Details Date Type Department Care Team (Late st Contact Info) Description 08/28/2019 [place] [address] Kia Angelo MD [facility] [place] [address] Social History Tobacco Use Types Packs/Day Years [...] Dr. Pooja Iyer, Dr. Weathers Patient Location: [facility] ED Reason for call: transfer request [...] can keep and manage patient in the [facility] ED overnight pending bed availability (they [...] AM EDT Hospital Encounter [place] [address] Mary Reyes [facility] [place] [address] 10/21/2023 11:30 AM EDT Appointment [place] [address] Mary Reyes [facility] [place] [address] 10/21/2023 12:30 PM EDT Appointment [place] [address] Mary Reyes [facility] [place] [address] 10/21/2023 1:30 PM EDT Appointment [place] [address] Mary Reyes [facility] [place] [address] 10/21/2023 2:30 PM EDT Appointment [place] [address] Mary Reyes [facility] [place] [address] 10/26/2023 4:00 PM EDT Office Visit Cardiology at [address] [phone] Jaspreet Kinsey MD [facility] [place] [address] 10/28/2023 9:00 AM EDT Office [place] [address] 10/29/2023 10:00 AM EDT Clinical Support [place] [address] 10/29/2023 10:15 AM EDT Procedure [place] [address] 11/01/2023 5:00 PM EDT Office [place] [address] Selene Browning, PhD [facility] [place] [address] 11/22/2023 4:40 PM EDT Office Visit Cardiology at [address] [address] Porsha Mcdaniels MD [facility] [place] [address] 12/13/2023 10:00 AM EDT Clinical [place] [address] Lucero Romero, ALVA [facility] [place] [address] documented as of this encounter Visit Diagnoses Not on filedocumented in this encounter Care Teams Sustainability Coordinator Relationship Specialty Start Date End Date Tim Rogers DNP PCP - General Family Medicine 08/28/19 06/08/21 documented as of this encounter
--- OUTSIDE RECORDS SUMMARY | 2023-10-20 20:02 | XMS_ITS | Encounter Summary ---
Author Organization [facility] [place] [address] Care Team Providers Care Assessment Technician Name Role Phone Dustin Nino MD Primary Care Provider [phone] Encounter Details Date Type Department Care Team (Late st Contact Info) Description 06/19/2010 [place] [address] Lashonda [place] MD [facility] [address] [place]GY [place] [address] Social History Tobacco Use Types Packs/Day Years [...] AM EDT Hospital Encounter [place] [phone] Mary Reyes APRN [facility] [place] [address] 10/21/2023 11:30 AM EDT Appointment [place] [phone] Mary Reyes APRN [facility] [place] [address] 10/21/2023 12:30 PM EDT Appointment [place] [address] Mary Reyes [facility] [address] 10/21/2023 1:30 PM EDT Appointment [place] [address] Mary Reyes [facility] [place] [address] 10/21/2023 2:30 PM EDT Appointment [place] [address] [place] [address] 10/26/2023 4:00 PM EDT Office Visit Cardiology at [address] [phone] Jaspreet Kinsey MD [facility] [address] 10/28/2023 9:00 AM EDT Office [place] [address] 10/29/2023 10:00 AM EDT Clinical Support [place] [address] 10/29/2023 10:15 AM EDT Procedure [place] [address] 11/01/2023 5:00 PM EDT Office [place] [phone] Selene Browning, PhD [facility] [place] [address] 11/22/2023 4:40 PM EDT Office Visit Cardiology at [place] [phone] Porsha Mcdaniels MD [facility] [address] 12/13/2023 10:00 AM EDT Clinical Support Gastroenterology at [place] [phone] Lucero Romero, ALVA [facility] [place] [address] documented as of this encounter Visit Diagnoses Not on filedocumented in this encounter Care Teams Assessment Technician Relationship Specialty Start Date End Date Dustin Nino MD [facility] [place] [address] PCP - General 06/11/10 08/27/19 documented as of this encounter
--- OUTSIDE RECORDS SUMMARY | 2023-10-20 20:02 | XMS_ITS | Encounter Summary ---
[place] [address] Care Team Providers Care Estate Planning Counselor Name Role Phone Tim Rogers DNP Primary Care Provider Encounter Details Date Type Department Care Team (Late st Contact Info) Description 08/28/2019 12:05 AM EDT Ancillary Procedure [place] [address] Veronica Bello, ROM [address] [place] [address] Social History Tobacco Use Types Packs/Day Years [...] AM EDT Hospital En[place] [phone] Mary Reyes APRN [facility] [place] [address] 10/21/2023 11:30 AM EDT Appointment [place] [address] Mary Reyes [facility] [place] [address] 10/21/2023 12:30 PM EDT Appointment [place] [address] Mary Reyes [facility] [place] [address] 10/21/2023 1:30 PM EDT Appointment [place] [address] [place] [address] 10/21/2023 2:30 PM EDT Appointment [place] [address] [place] [address] 10/26/2023 4:00 PM EDT Office Visit Cardiology at [address] [phone] Jaspreet Kinsey MD [facility] [place] [address] 10/28/2023 9:00 AM EDT Office Visit [place] [address] 10/29/2023 10:00 AM EDT Clinical Support [place] [address] 10/29/2023 10:15 AM EDT Procedure visit [place] [address] 11/01/2023 5:00 PM EDT Office [place] [address] Selene Browning, PhD [facility] [place] [address] 11/22/2023 4:40 PM EDT Office Visit Cardiology at [address] [phone] Porsha Mcdaniels MD [facility] [place] [address] 12/13/2023 10:00 AM EDT Clinical Support [place] [phone] [facility] [place] [address] documented as of this encounter Procedures Procedure Name Priority Date/Time Associated Diagnosis Comments FILM LIBRARY STORAGE ONLY CT CHEST Routine 08/28/2019 12:05 AM EDT documented in this encounter Results * Film Library- Storage Only CT Chest (08/28/2019 12:05 AM EDT) Narrative [facility] - 08/29/2019 1:46 PM EDT This exam is auto-finalizing. It's purpose is for storage only. Veronica Bello INSPECTOR MATERIALS AND PROCESSES IMG FILM LIBRARY ORD ERABLES [place], [place] documented in this encounter Visit Diagnoses Not on filedocumented in this encounter Care Teams Estate Planning Counselor Relationship Specialty Start Date End Date Tim Rogers DNP PCP - General Family Medicine 08/28/19 06/08/21 documented as of this encounter
--- OUTSIDE RECORDS SUMMARY | 2023-10-20 20:02 | XMS_ITS | Encounter Summary ---
Author Organization [facility] [place] [address] Care Team Providers Care Structural Iron Worker Name Role Phone Dustin Nino MD Primary Care Provider [phone] Encounter Details Date Type Department Care Team (Late st Contact Info) Description 06/20/2010 [place] [address] Lashonda York MD [facility] DR [place]ERGY [place] [address] Social History Tobacco Use Types Packs/Day Years [...] AM EDT Hospital Encounter [place] [phone] Mary Reyes APRN [facility] [place] [address] 10/21/2023 11:30 AM EDT Appointment [place] [phone] Mary Reyes APRN [facility] [address] 10/21/2023 12:30 PM EDT Appointment [place] [address] Mary Reyes [facility] [place] [address] 10/21/2023 1:30 PM EDT Appointment [place] [address] Mary Reyes [facility] [place] [address] 10/21/2023 2:30 PM EDT Appointment [place] [address] [place] [address] 10/26/2023 4:00 PM EDT Office Visit Cardiology at [address] [phone] Jaspreet Kinsey MD [facility] [place] [address] 10/28/2023 9:00 AM EDT Office Visit [place] [address] 10/29/2023 10:00 AM EDT Clinical Support [place] [address] 10/29/2023 10:15 AM EDT Procedure [place] [address] 11/01/2023 5:00 PM EDT Office [place] [phone] Selene Browning, PhD [facility] [place] [address] 11/22/2023 4:40 PM EDT Office Visit Cardiology at [place] [phone] Porsha Mcdaniels MD [facility] [place] [address] 12/13/2023 10:00 AM EDT Clinical Support Gastroenterology at [place] [phone] Lucero Romero, [place] [facility] [place] [address] documented as of this encounter Visit Diagnoses Not on filedocumented in this encounter Care Teams Structural Iron Worker Relationship Specialty Start Date End Date Dustin Nino MD [facility] 1 [facility] [place] [address] PCP - General 06/11/10 08/27/19 documented as of this encounter
== END 2023-10-20 19:47 | disposition home or self-care (01) ==
LOC: NCHCN 19:46
PROVIDERS: PCP Physician Assistant; Visit Provider Physician Assistant
DX: I50.9 Heart failure, unspecified (principal)
CPT/HCPCS: 80048

== ENCOUNTER 2023-10-22 00:32 | Outpatient (CLI) | payer BC, SELFPAY ==
--- OUTSIDE RECORDS SUMMARY | 2023-10-22 00:34 | XMS_ITS | Encounter Summary ---
[place] [address] Care Team Providers Care Marketing Services Specialist Name Role Phone Polo Pearce Primary Care Provider [phone] Reason for Visit * Diagnostic Test (Routine) - Closed Specialty Diagnoses / Procedures Referred By Jayant harris Referred To Contact Radiology Diagnoses Nausea without vomiting Early satiety Procedures NM Gastric Emptying Scan Mary Reyes ELECTRON [place] [address] [place] [address] Referral ID Status Reason Start Date Expiration Date V isits Requested Visits Authorized [id number] Closed Specialty Service Requested 08/25/2023 02/23/2025 1 1 Encounter Details Date Type Department Care Team (Late st Contact Info) Description 10/21/2023 9:03 AM EDT Hospital Encounter [place] [address] [place] [address] Arrived Social History Tobacco Use Types Packs/Day Years [...] any time in the past 12 m [facility], were you homeless or living in a correction (including now)? No 08/30/2023 DH IPV Inpatient [...] Care Team (Late st Contact Info) Description 10/26/2023 4:00 PM EDT Office Visit Cardiology at [address] [address] Jaspreet Kinsey MD [facility] [place] [address] 10/28/2023 9:00 AM EDT Office [place] [address] 10/29/2023 10:00 AM EDT Clinical [place] [address] 10/29/2023 10:15 AM EDT Procedure [place] [address] 11/01/2023 5:00 PM EDT Office Visit [place] [phone] Selene Browning, PhD [facility] [place] [address] 11/22/2023 4:40 PM EDT Office Visit Cardiology at [address] [phone] Porsha Mcdaniels MD [facility] [place] [address] 12/13/2023 10:00 AM EDT Clinical Support [place] [phone] [facility] [place] [address] documented as of this encounter Procedures Procedure Name Priority Date/Time Associated Diagnosis Comments NM GASTRIC EMPTYING SCAN Routine 10/21/2023 1:54 PM EDT Nausea without vomiting Early satiety documented in this encounter Results * NM Gastric Emptying Scan (10/21/2023 1:54 PM EDT) WORKSTATION ID [id number] [facility] Anatomical Region Laterality Modality Nuclear Medicine Impressions 10/21/2023 5:16 PM EDT Normal gastric emptying. I have personally reviewed the image(s) and the resident's interpretation and agree with the findings, Humberto Qureshi MD at 10/21/2023 5:16 PM Thank you for letting us participate in the care of this patient. ??If you are a health care provider and have any questions regarding this report, please contact the number below. ??For patients who have questions please contact the health post acute care nurse that requested your imaging first. ? Electronically signed by: Humberto Qureshi MD, [facility] ([phone]), at 10/21/2023 5:16 PM Narrative 10/21/2023 5:16 PM EDT EXAMINATION: NM GASTRIC EMPTYING SCAN CLINICAL HISTORY: nausea and early satiety. if gastric emptying delayed at 4 hours, please also comment if combined gastric/small bowel transit time is more/less than 3 hours (7 hours total) R11.0, Nausea - R68.81, Early satiety TECHNIQUE: A standard meal was labeled with 0.5 mCi of technetium-99m sulfur colloid and ingested. Images of the stomach were obtained in the anterior and posterior projections immediately thereafter and 1, 2, 3 and 3 hours later. COMPARISON: None FINDINGS: Activity fills the stomach on the initial images obtained immediately after ingesting the meal. Small bowel is visible at one hour. There is minimal activity present in the stomach at 3 hours. Quantitative analysis: 2 hours: 25% in the stomach (normal less than 60%) 3 hours: 8% in the stomach (normal less than 10% at four hours) Procedure Note Humberto Qureshi MD - 10/21/2023 EXAMINATION: NM GASTRIC EMPTYING SCAN CLINICAL HISTORY: nausea and early satiety. if gastric emptying delayed at4 hours, please also comment if combined gastric/small bowel transit timeis more/less than 3 hours (7 hours total) R11.0, Nausea - R68.81, Early satiety TECHNIQUE: A standard meal was labeled with 0.5 mCi of technetium-99msulfur colloid and ingested. Images of the stomach were obtained in the anteriorand posterior projections immediately thereafter and 1, 2, 3 and 3 hourslater. COMPARISON: None FINDINGS: Activity fills the stomach on the initial images obtained immediatelyafter ingesting the meal. Small bowel is visible at one hour. There is minimal activity present in the stomach at 3 hours. Quantitative analysis: 2 hours: 25% in the stomach (normal less than 60%) 3 hours: 8% in the stomach (normal less than 10% at four hours) IMPRESSION Normal gastric emptying. I have personally reviewed the image(s) and the resident's interpretationand agree with the findings, Humberto Qureshi MD at 10/21/2023 5:16 PM Thank you for letting us participate in the care of this patient. If youare a health care provider and have any questions regarding this report,please contact the number below. For patients who have questions please contactthe health post acute care nurse that requested your imaging first. Electronically signed by: Humberto Qureshi MD, [facility]([phone]), at 10/21/2023 5:16 PM Mary Reyes ELECTRON MICROPROBE OPERATOR IMG [place] ORDERABLES documented in this encounter Visit Diagnoses Not on filedocumented in this encounter Care Teams Marketing Services Specialist Relationship Specialty Start Date End Date Polo Pearce PA [address] [place] [address] PCP - General Internal Medicine 06/09/21 documented as of this encounter
--- OUTSIDE RECORDS SUMMARY | 2023-10-22 00:34 | XMS_ITS | Encounter Summary ---
[place] [address] Care Team Providers Care Administrative Library Assistant Name Role Phone Polo Pearce Primary Care Provider [phone] Reason for Visit * Diagnostic Test (Routine) - Closed Specialty Diagnoses / Procedures Referred By Jayant harris Referred To Contact Radiology Diagnoses Nausea without vomiting Early satiety Procedures NM Gastric Emptying Scan Mary Reyes [place] [address] [place] [address] Referral ID Status Reason Start Date Expiration Date V isits Requested Visits Authorized [id number] Closed Specialty Service Requested 08/25/2023 02/23/2025 1 1 Encounter Details Date Type Department Care Team (Late st Contact Info) Description 10/21/2023 9:03 AM EDT Hospital En[place] [address] [place] [address] Arrived Social History Tobacco Use Types Packs/Day Years Used Date Smoking Tobacco: Never Smokeless Tobacco: Never Alcohol Use Standard Drinks/Week Comments Never 0 (1 standard drink = 0.6 oz pur e alcohol) [facility] Utilities Answer Date Recorded In the [...] any time in the past 12 m [facility], were you homeless or living in a alf (including now)? No 08/30/2023 DH IPV Inpatient [...] PM EDT Office Visit Cardiology at [address] [address] Jaspreet Kinsey MD [facility] [place] [address] 10/28/2023 9:00 AM EDT Office [place] [address] 10/29/2023 10:00 AM EDT Clinical [place] [address] 10/29/2023 10:15 AM EDT Procedure [place] [address] 11/01/2023 5:00 PM EDT Office Visit [place] [phone] Selene Browning, PhD [facility] [place] [address] 11/22/2023 4:40 PM EDT Office Visit Cardiology at [address] [phone] Porsha Mcdaniels MD [facility] [place] [address] 12/13/2023 10:00 AM EDT Clinical Support [place] [phone] [facility] [place] [address] documented as of this encounter Procedures Procedure Name Priority Date/Time Associated Diagnosis Comments NM GASTRIC EMPTYING SCAN Routine 10/21/2023 1:54 PM EDT Nausea without vomiting Early satiety documented in this encounter Results * NM Gastric Emptying Scan (10/21/2023 1:54 PM EDT) WORKSTATION ID [id number] [facility] Anatomical Region Laterality Modality Nuclear Medicine Impressions [...] have questions please contact the health home health caregiver that requested your imaging first. ? Electronically signed by: Humberto Qureshi MD, [facility] ([phone]), at 10/21/2023 5:16 PM Narrative 10/21/2023 5:16 [...] who have questions please contactthe health home health caregiver that requested your imaging first. Electronically signed by: Humberto Qureshi MD, [facility]([phone]), at 10/21/2023 5:16 PM Mary Reyes PHYSICAL LABORATORY ASSISTANT IMG NM ORDERABLES documented in this encounter Visit Diagnoses Not on filedocumented in this encounter Care Teams Administrative Library Assistant Relationship Specialty Start Date End Date Polo Pearce PA [address] [place] [address] PCP - General Internal Medicine 06/09/21 documented as of this encounter
--- OUTSIDE RECORDS SUMMARY | 2023-10-22 00:34 | XMS_ITS | Encounter Summary ---
[place] [address] Care Team Providers Care Sql Server Architect Name Role Phone Polo Pearce Primary Care Provider [phone] Reason for Referral * Diagnostic Test (Routine) - Closed Specialty Diagnoses / Procedures Referred By Contac t Referred To Contact Radiology Diagnoses Nausea without vomiting Early satiety Procedures NM Gastric Emptying Scan [place] [address] [place] [address] Referral ID Status Reason Start Date Expiration Date V isits Requested Visits Authorized [id number] Closed Specialty Service Requested 08/25/2023 02/23/2025 1 1 Reason for Visit * Diagnostic Test (Routine) - Closed Specialty Diagnoses / Procedures Referred By Contac t Referred To Contact Radiology Diagnoses Nausea without vomiting Early satiety Procedures NM Gastric Emptying Scan [place] [address] [place] [address] Referral ID Status Reason Start Date Expiration Date V isits Requested Visits Authorized [id number] Closed Specialty Service Requested 08/25/2023 02/23/2025 1 1 Encounter Details Date Type Department Care Team (Latest Contact Info) Description 10/21/2023 9:02 AM EDT Hospital Encounter [place] [address] Mary Reyes TRANSPORTATION SUPERVISOR [facility] [address] Nausea without vomiting; Early satiety Social History Tobacco Use Types Packs/Day Years Used Date Smoking Tobacco: Never Smokeless Tobacco: Never Alcohol Use Standard Drinks/Week Comments Never 0 (1 standard drink = 0.6 oz pur e alcohol) [facility] Utilities Answer Date Recorded In the [...] in a penitentiary (including now)? No 06/15/2023 Housing Stability Vital Sign Answer Mitchell e Recorded In the last 12 months, was t here a time when you were not able to pay the mortgage or rent on time? No 08/30/2023 In the past 12 months, how m any times have you moved where you were living? 1 08/30/2023 At any time in the past 12 m onths, were you homeless or living in a penitentiary (including now)? No 08/30/2023 IPV Inpatient Questions [...] Office Visit Cardiology at [address] [address] Jaspreet Kinsey MD [facility] [place] [address] 10/28/2023 9:00 AM EDT Office [place] [address] 10/29/2023 10:00 AM EDT Clinical [place] [address] 10/29/2023 10:15 AM EDT Procedure [place] [address] 11/01/2023 5:00 PM EDT Office [place] [address] Selene Browning, PhD [facility] [place] [address] 11/22/2023 4:40 PM EDT Office Visit Cardiology at [address] [address] Porsha Mcdaniels MD [facility] [place] [address] 12/13/2023 10:00 AM EDT Clinical [place] [address] [facility] [place] [address] documented as of this encounter Procedures Procedure Name Priority Date/Time Associated Diagnosis Comments NM GASTRIC EMPTYING SCAN Routine 10/21/2023 1:54 PM EDT Nausea without vomiting Early satiety documented in this encounter Results * NM Gastric Emptying Scan (10/21/2023 1:54 PM EDT) Gorsh WORKSTATION ID [id number] [facility] Anatomical Region Laterality Modality Nuclear Medicine Impressions [...] have questions please contact the health career center director that requested your imaging first. ? Electronically signed by: Humberto Qureshi MD, [facility] ([phone]), at 10/21/2023 5:16 PM Narrative 10/21/2023 5:16 [...] Note Humberto Qureshi MD - 10/21/2023 EXAMINATION: [place] GASTRIC EMPTYING SCAN CLINICAL HISTORY: nausea and [...] who have questions please contactthe health career center director that requested your imaging first. Mary Reyes TRANSPORTATION SUPERVISOR IMG NM ORDERABLES documented in this encounter Visit Diagnoses Diagnosis Nausea without vomiting Early satiety documented in this encounter Administered Medications Inactive Administered Medications - up to 3 most recent administrations Medication Order MAR Action Action Date Dose Rate Site technetium (Tc-99m) sulfur colloid injection 0-18 mCi 0-18 mCi, Oral, ONCE PRN, 1 dose, Starting on Aura 10/21/23 at 1053, Until Aura 10/21/23 at 1053, Per Protocol, Radiology Contrast, Routine Given 10/21/2023 10:53 AM EDT 0.5 mCi documented in this encounter Care Teams Sql Server Architect Relationship Specialty Start Date End Date Polo Pearce PA [address] [place] [address] PCP - General Internal Medicine 06/09/21 documented as of this encounter
--- OUTSIDE RECORDS SUMMARY | 2023-10-22 00:34 | XMS_ITS | Encounter Summary ---
[place] [address] Care Team Providers Care Furnace Checker Name Role Phone Polo Pearce Primary Care Provider [phone] Reason for Visit * Diagnostic Test (Routine) - Closed Specialty Diagnoses / Procedures Referred By Jayant harris Referred To Contact Radiology Diagnoses Nausea without vomiting Early satiety Procedures NM Gastric Emptying Scan Mary Reyes ELECTRICIAN [place] [address] [place] [address] Referral ID Status Reason Start Date Expiration Date V isits Requested Visits Authorized [id number] Closed Specialty Service Requested 08/25/2023 02/23/2025 1 1 Encounter Details Date Type Department Care Team (Late st Contact Info) Description 10/21/2023 9:03 AM EDT Hospital Encounter [place] [address] [place] [address] Arrived Social History Tobacco Use Types Packs/Day [...] any time in the past 12 m [facility], were you homeless or living in a penitentiary (including now)? No 08/30/2023 DH IPV Inpatient [...] PM EDT Office Visit Cardiology at [address] [address] Jaspreet Kinsey MD [facility] [place] [address] 10/28/2023 9:00 AM EDT Office Visit [place] [address] 10/29/2023 10:00 AM EDT Clinical Support [place] [address] 10/29/2023 10:15 AM EDT Procedure visit [place] [address] 11/01/2023 5:00 PM EDT Office [place] [phone] Selene Browning, PhD [facility] [place] [address] 11/22/2023 4:40 PM EDT Office Visit Cardiology at [address] [phone] Porsha Mcdaniels MD [facility] [place] [address] 12/13/2023 10:00 AM EDT Clinical [place] [phone] [facility] [place] [address] documented as of this encounter Procedures Procedure Name Priority Date/Time Associated Diagnosis Comments NM GASTRIC EMPTYING SCAN Routine 10/21/2023 1:54 PM EDT Nausea without vomiting Early satiety documented in this encounter Results * NM Gastric Emptying Scan (10/21/2023 1:54 PM EDT) WORKSTATION ID [id number] [facility] Anatomical Region Laterality Modality Nuclear [...] questions please contact the health youth care professional that requested your imaging first. ? Electronically signed by: Humberto Qureshi MD, [facility] ([phone]), at 10/21/2023 5:16 PM Narrative 10/21/2023 5:16 [...] have questions please contactthe health youth care professional that requested your imaging first. Electronically signed by: Humberto Qureshi MD, [facility]([phone]), at 10/21/2023 5:16 PM Mary Reyes ELECTRICIAN SUBSTATION SUPERVISOR IMG NM ORDERABLES documented in this encounter Visit Diagnoses Not on filedocumented in this encounter Care Teams Furnace Checker Relationship Specialty Start Date End Date Polo Pearce PA [address] [place] [address] PCP - General Internal Medicine 06/09/21 documented as of this encounter
--- OUTSIDE RECORDS SUMMARY | 2023-10-22 00:34 | XMS_ITS | Encounter Summary ---
Author Organization [facility] [place] [address] Care Team Providers Care President Sales And Marketing Name Role Phone Polo Pearce Primary Care Provider [phone] Encounter Details Date Type Department Care Team (Latest Contact Info) Description 10/21/2023 Travel Social History Tobacco Use Types Packs/Day Years Used Date Smoking Tobacco: Never Smokeless Tobacco: Never Alcohol Use Standard Drinks/Week Comments Never 0 (1 standard drink = 0.6 oz pur e alcohol) [facility] Utilities Answer Date [...] in a prison (including now)? No 06/15/2023 Housing Stability Vital Sign Answer Mitchell e Recorded In the last 12 months, was t here a time when you were not able to pay the mortgage or rent on time? No 08/30/2023 In the past 12 months, how m any times have you moved where you were living? 1 08/30/2023 At any time in the past 12 m [facility], were you homeless or living in a prison (including now)? No 08/30/2023 IPV Inpatient Questions [...] PM EDT Office Visit Cardiology at [address] [phone] Jaspreet Kinsey MD [facility] [place] [address] 10/28/2023 9:00 AM EDT Office Visit [place] [address] 10/29/2023 10:00 AM EDT Clinical Support [place] [address] 10/29/2023 10:15 AM EDT Procedure visit [place] [address] 11/01/2023 5:00 PM EDT Office [place] [phone] Selene Browning, PhD [facility] [place] [address] 11/22/2023 4:40 PM EDT Office Visit Cardiology at [place] [phone] Porsha Mcdaniels MD [facility] [place] [address] 12/13/2023 10:00 AM EDT Clinical Support Gastroenterology at [place] [phone] [facility] [place] [address] documented as of this encounter Visit Diagnoses Not on filedocumented in this encounter Care Teams President Sales And Marketing Relationship Specialty Start Date End Date Polo Pearce PA [address] [place] [address] PCP - General Internal Medicine 06/09/21 documented as of this encounter
--- OUTSIDE RECORDS SUMMARY | 2023-10-22 00:34 | XMS_ITS | Clinical Summary ---
Author Organization [facility] Address [facility] [place] [address] Care Team Providers Care Uat Tester Name Role Phone Polo Pearce Primary Care Provider [phone] Allergies Active Allergy Reactions Criticality Noted Date [...] spacer Active fluticasone propionate (FLONASE) 50 mcg/actuation [place], Suspension 1 spray by Each Nare route [...] 04/29/2020 Overview (07/26/2023): 05/2021: subacute, presented to [facility] with RUQ pain, weight gain, and progressive [...] sarcoid. Anterior scar pattern 06/2023: [place] [facility] [place] TTE with low-normal EF, though anterior [...] referral to the good Dr Mcdaniels of [facility] expertise IN the meantime, increase torsemide [...] discharge summary and medication administration record from [facility] to see what was given to her [...] diagnosis of hypertension 06/07/2021 07/23/2021 Non-ST elevation [place] (NSTEMI) 08/29/2019 03/16/2022 Rhinitis, nonallergic, chronic 06/26/2010 07/30/2022 Encounters Date Type Department Care Team Description 10/21/2023 9:03 AM EDT Hospital Encounter [place] [address] Mary Reyes APRN Arrived 10/21/2023 9:03 AM EDT Hospital Encounter Nuclear Medicine at [place] [phone] Mary Reyes APRN Arrived 10/21/2023 9:03 AM EDT Hospital Encounter Nuclear Medicine at [place] [phone] Mary Reyes ANESTHESIA ATTENDING Arrived 10/21/2023 9:03 AM EDT Hospital Encounter [place] [address] Mary Reyes APRN Arrived 10/21/2023 9:02 AM EDT Hospital Encounter Nuclear Medicine at [place] [phone] Mary Reyes, ANESTHESIA ATTENDING Nausea without vomiting; Early satiety 10/21/2023 Travel 10/08/2023 9:30 AM EDT Office Visit Vascular Surgery at [place] [phone] MD Mesenteric ischemia (Primary Dx) 10/08/2023 8:30 AM EDT Tech Visit Vascular Lab at [place] [phone] Channing Escobedo [place] Mesenteric ischemia 10/08/2023 Travel 09/20/2023 [place] [address] Vito Pearce MD 09/20/2023 External Results Administration [place] [phone] 08/28/2023 8:27 PM EDT - 09/10/2023 5:31 PM EDT Hospital Encounter Heart and Vascular Unit Level 3 Wing B at [place] [phone] Kia Angelo MD Etiwy, Muhammad, MD Ramachandra, [...] PM EDT Ancillary Procedure [place] [phone] Jaspreet Kinsey MD 08/28/2023 [place] [address] Ciro Lovell MD 08/28/2023 External [place] [phone] 08/25/2023 1:05 PM EDT Laboratory Appointment Lab [address] [place] [phone] Heart failure with preserved ejection fraction, unspecified HF chronicity; Chronic kidney disease, unspecified CKD stage; Altered bowel function; Depression, unspecified depression type 08/25/2023 12:55 PM EDT Laboratory Appointment Lab [address] [place] [phone] 08/25/2023 10:00 AM EDT Office [place] [phone] Mary Reyes, ROM Altered bowel function; Depression, unspecified depression type; Gastroesophageal reflux disease, unspecified whether esophagitis present; Esophageal dysphagia; Nausea without vomiting; Early satiety 08/25/2023 Travel 08/17/2023 11:53 AM EDT - 08/17/2023 11:59 PM EDT Hospital Encounter Non-Invasive [place] [phone] Porsha Mcdaniels MD Chest pain, unspecified type Discharge Disposition: Home 08/17/2023 11:52 AM EDT Hospital Encounter [place] [address] Porsha Mcdaniels MD Chest pain, unspecified type Discharge Disposition: Home 08/17/2023 Travel 08/03/2023 9:30 AM EDT Office [place] [address] Judith Butler APRN Mesenteric ischemia 08/03/2023 8:30 AM EDT Tech [place] [address] Eladio Boyer Mesenteric ischemia 08/03/2023 Travel 07/29/2023 8:00 AM EDT Office Visit Cardiology at [address] [phone] Porsha Mcdaniels MD Chest pain, unspecified type 07/29/2023 Travel 07/26/2023 3:20 PM EDT Office Visit Cardiology at [address] [phone] Jaspreet Kinsey MD Heart failure [...] drink = 0.6 oz pur e alcohol) [facility] Utilities Answer Date Recorded In the past 12 months has e [employer], gas, oil, or water [employer] threatened to shut off services in your [...] any time in the past 12 m [facility], were you homeless or living in a halfway (including now)? No 08/30/2023 IPV Inpatient Questions [...] PM EDT Office Visit Cardiology at [address] [place] [address] Jaspreet Kinsey MD [facility] [place] [address] 10/28/2023 9:00 AM EDT Office [place] [address] 10/29/2023 10:00 AM EDT Clinical Support [place] [address] 10/29/2023 10:15 AM EDT Procedure visit [place] [address] 11/01/2023 5:00 PM EDT Office [place] [phone] Selene Browning, PhD [facility] [place] [place] [address] 11/22/2023 4:40 PM EDT Office Visit Cardiology at [address] [phone] Porsha Mcdaniels MD [facility] [place] [address] 12/13/2023 10:00 AM EDT Clinical [place] [phone] Lucero Romero, ALVA [facility] [place] [address] Health Maintenance Due Date Last Done Comments [...] history exists Medical Devices Implanted Type Area Assistant Community Director Device Identifier Shelf Expiration Date Model / Serial / Lot Stent Graft [id number] cm [place] Viabahn Vbx ([id number]) ([employer])-4/2 08/2023 Implanted:Qty : 1 on 07/02/[address] MD IMPLANTS Arterial [employer] [id number] / / [id number] Description:sma stent placem ent Procedures Procedure Name Priority Date/Time Associated Diagnosis Comments NM GASTRIC EMPTYING SCAN Routine 10/21/2023 1:54 PM EDT Nausea without vomiting Early satiety MESENTERIC COMPLETE Routine 10/08/2023 8 :22 AM [...] 7:26 AM EDT DIFFERENTIAL, AUTOMATED Routine 09/01/19 24 3:08 AM EDT HEMOGRAM Routine 09/01/2023 3:08 [...] 3:14 AM EDT DIFFERENTIAL, AUTOMATED Routine 08/31/19 24 2:18 AM EDT HEMOGRAM Routine 08/31/2023 2:18 [...] unspecified CKD stage HC DNA AB DS ([place]) Routine 08/25/2023 11:28 AM EDT Heart failure [...] Recently Relevant to Health Maintenance Results * NM Gastric Emptying Scan (10/21/2023 1:54 PM EDT) WORKSTATION ID [id number] DH RAD Anatomical Region Laterality Modality Nuclear Medicine Impressions [...] have questions please contact the health healthcare advisory services manager that requested your imaging first. ? Electronically signed by: Humberto Qureshi MD, [facility] ([phone]), at 10/21/2023 5:16 PM Narrative 10/21/2023 5:16 [...] who have questions please contactthe health healthcare advisory services manager that requested your imaging first. Electronically signed by: Humberto Qureshi MD, [facility]([phone]), at 10/21/2023 5:16 PM Mary Reyes ANESTHESIA ATTENDING IMG NM ORDERABLES * Duplex Study Visceral Arteries, Comp (10/08/2023 8:22 AM EDT) Only the most recent of2 resultswithin the time period is included. VB Text Report Department: Vascular Surgery Lab Patient: [id number] (LOIDA ROQUE) CPT: 69467 Referring Physician: JUDITH BUTLER ?? Phone: Indications: [...] within mesenteric artery stents may differ from hoopa arteries, with thresholds for diagnosis of significant stenosis likely being somewhat higher in stented arteries than hoopa.% To date, there is no evidence based consensus of stent velocity criteria. Therefore, the current interpretation is based on hoopa artery thresholds. Previous Celiac/Mesenteric Studies: Date ? [...] VASCUBASE 10/08/2023 8:22 AM EDT Judith Butler ANESTHESIA ATTENDING VASCULAR ORDERABLES VASCUBASE * Non DH External [...] White Blood Cell 7.6 4.0 - 9.5 x10(3)/[facility] LABORATORY Red Blood Cell 4.15 4.00 - 5.21 x10(6)/[facility] LABORATORY Hemoglobin 13.0 11.7 - 15.5 g/dL [facility] Hematocrit 39.2 35.7 - 45.8 % [facility] Mean Cell Volume 94.5(H) 82.6 - 94.4 fL [facility] Mean Cell Hemoglobin 31.3 27.1 - 32.0 pg [facility] Mean Cell Hemoglobin Concentration 33.2 31.7 - 35.0 g/dL [facility] Platelet 267 145 - 357 x10(3)/mc L [facility] RDW Standard Deviation 44.6 37.0 - 46.0 fL [facility] RDW coefficient of variation 13.1 11.5 - 14.1 % [facility] Mean Platelet Volume 10.3 7.6 - 12.9 fL [facility] NRBC% auto 0.0 % [facility] NRBC Absolute 0.000 0.000 - 0.000 x10(3)/ L [facility] Blood 09/10/2023 4:17 AM EDT 09/10/2023 4:29 AM EDT Narrative Resulting Agency Comment Spec In Lab Eufemia Copeland MD HEMATOLOGY ORDERAB LES [facility] [place] [place] [address] * Differential, Automated (09/10/2023 4:17 AM EDT) Only the most recent of14 resultswithin the time period is included. Neutrophil % 54.4 % [facility] Neutrophil Absolute 4.17 1.70 - 6.10 x10(3)/[facility] LABORATORY Lymph % 33.2 % [facility] Lymphocytes Abs 2.5 0.9 - 3.2 x10(3)/[facility] LABORATORY Monocyte % 8.4 % [facility] Monocyte Abs 0.6 0.3 - 0.9 x10(3)/[facility] LABORATORY Eos % 3.0 % [facility] Eosinophils Abs 0.2 0.0 - 0.4 x10(3)/[facility] LABORATORY Basophil % 0.7 % [facility] Baso Absolute 0.0 0.0 - 0.1 x10(3)/[facility] LABORATORY Immature Gran % 0.30 % [facility] Comment: Immature granulocytes(IG's)percentage and absolute count will include metamyelocytes, myelocytes, and promyelocytes. Blood smears from CBCs yielding IG's will be scanned manually for concordance. If this scan disagrees with the automated IG or if promyelocytes are noted, a manual differential will be performed. Immature Gran Absolute 0.02 0.00 - 0.04 x10(3)/[facility] LABORATORY Blood 09/10/2023 4:17 AM EDT 09/10/2023 4:29 AM EDT Narrative Resulting Agency Comment Spec In Lab Eufemia Copeland MD HEMATOLOGY ORDERAB LES Performing Organization Address City/[facility]/ZIP Co de Phone Number [facility] [place] [address] * Magnesium (09/10/2023 4:17 AM EDT) Only the most recent of14 resultswithin the time period is included. Magnesium 0.99 0.69 - 1.07 mmol/L [facility] Blood 09/10/2023 4:17 AM EDT 09/10/2023 4:29 AM EDT Narrative Resulting Agency Comment Spec In Lab Eufemia Copeland MD CHEMISTRY ORDERABL ES Performing Organization Address City/[facility]/ZIP Co de Phone Number [facility] [place] [address] * (ABNORMAL) Basic Metabolic Panel (non-fasting) (09/10/2023 4:17 AM EDT) Only the most recent of17 resultswithin the time period is included. Glucose 92 65 - 199 mg/dL [facility] Comment:Diabetes: >=200 mg/d L plus symptoms Blood Urea Nitrogen 27(H) 8 - 18 mg/dL [facility] Creatinine 1.39(H) 0.70 - 1.20 mg/dL [facility] [...] - 107 mmol/L [facility] Carbon Dioxide 24 22 - 31 mmol/L [facility] Anion Gap 11 5 - 15 mmol/L [facility] Calcium 9.4 8.5 - 10.5 mg/dL [facility] Est Glomerular Filtration Rate 45(L) >=60 mL/min/1. 73 m?? [facility] Comment: This patient's estimated GFR [...] Lab Eufemia Copeland MD CHEMISTRY ORDERABL ES [facility] [place] [address] * EKG 12 Lead (09/08/2023 4:01 AM EDT) Only the most recent of12 resultswithin the time period is included. Ventricular rate 59 BPM MUSE SYSTEM Atrial Rate 59 BPM MUSE SYSTEM P-R Interval 192 ms MUSE SYSTEM QRS Duration 92 ms MUSE SYSTEM Q-T Interval 452 ms MUSE SYSTEM QTC Calculated (Bezet) 447 ms MUSE SYSTEM Calculated P [place] 38 degrees MUSE SYSTEM Calculated R [place] 51 degrees MUSE SYSTEM Calculated T [place] -18 degrees MUSE SYSTEM INTERPRETATION Sinus bradycardia Diffuse ST depression, consider subendocardial injury Abnormal ECG When compared with ECG of 03-SEP-2023 06:02, Premature atrial complexes are no longer Present QT has shortened I personally reviewed the tracing and edited the fellows interpretation Confirmed by fellow Vito Pearce ([id number]) on 09/08/2023 7:40:32 AM Confirmed by MD Angelo Danette ([id number]) on 09/08/2023 2:12:57 PM MUSE SYSTEM 09/08/2023 4:01 AM EDT 09/08/2023 2:12 PM EDT Eufemia Copeland MD ECG ORDERABLES MUSE SYSTEM * CT Abdomen & Pelvis w Contrast (09/05/2023 4:25 PM EDT) Pathologist [facility] WORKSTATION ID [id number] DH RAD Anatomical Region Laterality Modality Abdomen, [...] have questions please contact the health healthcare advisory services manager that requested your imaging first. ? Electronically signed by: Lalitha Sanders MD, [facility] ([phone]), at 09/06/2023 9:47 AM Narrative 09/06/2023 9:47 [...] structures: No acute osseous abnormality. Procedure Note Tommy, Lalitha J, MD - 09/06/2023 EXAMINATION: CTA/CT ABDOMEN AND [...] who have questions please contactthe health healthcare advisory services manager that requested your imaging first. Electronically signed by: Lalitha Sanders MD, [facility]([phone]), at 09/06/2023 9:47 AM Samantha Broussard MD IMG CT ORDERABLES * Miscellaneous Lab request (09/05/2023 1:58 AM EDT) Label Request received in lab. [facility] Blood 09/05/2023 1:58 AM EDT 09/05/2023 2:14 AM EDT Narrative Resulting Agency Comment Spec In Lab Samantha Broussard MD LAB SEND OUT ORDERAB LES Performing Organization Address [facility]/ZIP Co de Phone Number [facility] [place] [address] * IgG 4 (09/05/2023 1:58 AM EDT) IgG 4 47.7 3.9 - 86.4 mg/dL [facility] Blood 09/05/2023 1:58 AM EDT 09/05/2023 2:13 AM EDT Narrative Resulting Agency Comment Spec In Lab Samantha Broussard MD IMMUNOLOGY ORDERABLE S Performing Organization Address [facility] Co de Phone Number [facility] [place] [address] * (ABNORMAL) Potassium (09/04/2023 9:13 AM EDT) Only the most recent of2 resultswithin the time period is included. Potassium 3.2(L) 3.5 - 5.0 mmol/L [facility] Comment: Please note: ??Patients with WBC >100,000 may have falsely elevated Potassium levels. ??For accurate Potassium quantification in these patients send serum separator tube (gold top) for subsequent determinations. ??Contact the Clinical Chemistry Laboratory if there are any questions. Blood 09/04/2023 9:13 AM EDT 09/04/2023 9:28 AM EDT Narrative Resulting Agency Comment Spec In Lab aSmantha Broussard MD CHEMISTRY ORDERABLES Performing Organization Address [facility] Co de Phone Number [facility] [place] [address] * (ABNORMAL) Protein Electrophoresis, serum (09/03/2023 2:39 AM EDT) Only the most recent of2 resultswithin the time period is included. Total Prot Electrophoresis 7.9 6.1 - 8.0 g/dL [facility] Albumin Electrophoresis 4.87 3.20 - 5.20 g/dL [facility] Alpha 1 Globulin 0.21 0.10 - 0.30 g/dL [facility] Alpha 2 Globulin 1.03(H) 0.40 - 0.90 g/dL [facility] Beta Globulin 0.90 0.50 - 1.00 g/dL [facility] Gamma Globulin 0.88 0.50 - 1.30 g/dL [facility] M1 Band None Detected None Detected [facility] Blood 09/03/2023 2:39 AM EDT 09/03/2023 2:46 AM EDT Narrative Resulting Agency Comment Spec In Lab Lorna Herr MD CHEMISTRY ORDERABLES Performing Organization Address [facility] Co de Phone Number [facility] [place] [address] * Protein Electrophoresis, urine, random (09/02/2023 9:30 PM EDT) Protein, Urine <6 0 - 12 mg/dL [facility] U Albumin See Note [facility] Comment:No protein visible v ia electrophoresis due to a low urine total protein. Globulin, Urine Not Perf [facility] Comment:No protein visible v ia electrophoresis due to a low urine total protein. M1 Band, Urine Not Perf [facility] Comment:No protein visible v ia electrophoresis due to a low urine total protein. UPEP Comments See Note [facility] Comment: Total Protein concentration too low to fractionate using current electrophoretic technique. No protein visible via electrophoresis due to a low urine total protein. Urine 09/02/2023 9:30 PM EDT 09/02/2023 9:35 PM EDT Narrative Resulting Agency Comment Spec In Lab Lorna Herr MD URINE ORDERABLES [facility] [place] [address] * (ABNORMAL) Troponin (09/02/2023 8:16 PM EDT) Only the most recent of6 resultswithin the time period is included. Troponin-T, High Sensitivity 24(H) <=14 ng/L [facility] Comment: [...] can be found in the [facility] Laboratory Test Catalog Troponin - [facility] Laboratory Test Catalog Reference: Fourth [place] Definition of Myocardial Infarction. Journal of the [place] [employer] 2018;72:5956-7884 Blood 09/02/2023 8:16 PM EDT 09/02/2023 8:25 PM EDT Narrative Resulting Agency Comment Spec In Lab Lorna Herr MD CHEMISTRY ORDERABLES Performing Organization Address City/[facility]/ZIP Co de Phone Number [facility] [place] [address] * (ABNORMAL) pro-Brain Natriuretic Peptide (09/02/2023 5:05 PM EDT) Only the most recent of2 resultswithin the time period is included. NT-proBNP 985(H) <=124 pg/mL [facility] Blood 09/02/2023 5:05 PM EDT 09/02/2023 5:17 PM EDT Narrative Resulting Agency Comment Spec In Lab Lorna Herr MD CHEMISTRY ORDERABLES Performing Organization Address [facility]/ZIP Co de Phone Number [facility] [place] [address] * Phosphorus (08/31/2023 5:03 PM EDT) Phosphorus 3.8 2.5 - 4.5 mg/dL [facility] Blood 08/31/2023 5:03 PM EDT 08/31/2023 5:08 PM EDT Narrative Resulting Agency Comment Spec In Lab Eufemia Copeland MD CHEMISTRY ORDERABL ES Performing Organization Address [facility] Co de Phone Number [facility] [place] [address] * Heparin (unfractionated) Level (08/30/2023 3:09 AM EDT) Only the most recent of5 resultswithin the time period is included. UF Heparin 0.46 IU/mL [facility] Comment: [...] Lab Felix Mcmanus MD HEMATOLOGY ORDERABLE S [facility] [place] [address] * ECHO LMTD W CONTRAST W LMTD SPEC DOPP COLOR DOPP (08/29/2023 11:35 AM EDT) EF 50 [facility]ART[facility] SYSTEM Anatomical Region Laterality Modality Cardiac Other 08/29/2023 9:47 AM EDT Narrative 08/29/2023 12:27 PM EDT [address] [place] [address] ? Echocardiogram Report Name: LOIDA ROQUE ? Study Date: 08/29/2023 09:47 AMBP: 100/55 mmHg ? Patient Location: [place] 0483 A : 1970 ? Height: 163 cm ? Account: [id number] Age: 53 yrs ? Weight: 102 kg Gender: Female ?BSA: 2.1 m2 Ordering Physician: FELIX MCMANUS Referring Physician: SKIP HUMPHREY Performed By: Nalini Alvares RDCS Exam Location: [facility]. Interpretation Summary Left ventricle is normal in size. There is low normal global systolic function, with focal hypokinesis in the anteroseptum as ascribed. Right ventricle is not well visualized. No hemodynamically significant valve disease. Compared to prior studies over the past 6 months, there has been stable global LV systolic function, with oscillating regional function of the anterior wall. Procedure Limited - 58257. Image enhancement Optison was used for left [...] Note Jaspreet Kinsey MD - 08/29/2023 [address] [place] [address] Echocardiogram Report Name: LOIDA ROQUE Study Date: 409:47 AMBP: 100/55 mmHg Patient Location: [address] : 1970 Height: 163 cm Account: [id number] Age: 53 yrs Weight: 102 kg Gender: Female BSA: 2.1 m2 Ordering Physician: FELIX MCMANUS Referring Physician: SKIP HUMPHREY Performed By: Nalini Alvares RDCS Exam Location: [facility]. Interpretation Summary Left ventricle is normal in size. There is low normal global systolicfunction, with focal hypokinesis in the anteroseptum as ascribed. Right ventricle is not well visualized. No hemodynamically significant valve disease. Compared to prior studies over the past 6 months, there has been stableglobal LV systolic function, with oscillating regional function of the anteriorwall. Procedure Limited - 09442. Image enhancement Optison was used for left [...] AM EDT) C-Reactive Protein <3.0 <=4.9 mg/L [facility] Blood Venous Draw / Unknown 08/29/2023 4:01 AM EDT 08/29/2023 4:13 AM EDT Narrative Resulting Agency Comment Spec In Lab Eufemia Copeland MD CHEMISTRY ORDERABL ES [facility] [place] [address] * Green Tube HOLD (08/29/2023 4:01 AM EDT) Green Hold Sample in lab. [facility] Blood Venous Draw / Unknown 08/29/2023 4:01 AM EDT 08/29/2023 4:09 AM EDT Felix Mcmanus MD CHEMISTRY ORDERABLES [facility] [place] [place] [address] * Sedimentation rate (08/29/2023 4:01 AM EDT) Pathologist [facility] Sedimentation Rate Automated 11 2 - 39 mm/hr [facility] MD HEMATOLOGY ORDERAB LES Performing Organization Address City/[facility]/ZIP Co de Phone Number [facility] [place] [address] * (ABNORMAL) Hepatic Function Panel (08/28/2023 9:07 PM EDT) [facility] Protein, Total 6.6 6.1 - 8.0 g/dL [facility] Albumin 4.2 3.2 - 5.2 g/dL [facility] Aspartate Aminotransferase 32(H) 0 - 30 unit/L [facility] Alanine Aminotransferase 28 0 - 30 unit/L [facility] Alkaline Phosphatase 52 35 - 105 unit/L [facility] Bilirubin, Total 0.6 0.2 - 1.3 mg/dL [facility] Bilirubin, Direct 0.2 0.0 - 0.3 mg/dL [facility] Blood 08/28/2023 9:07 PM EDT 08/28/2023 9:12 PM EDT Narrative Resulting Agency Comment Spec In Lab Felix Mcmanus MD CHEMISTRY ORDERABLES Performing Organization Address [facility]/ZIP Co de Phone Number [facility] [place] [address] * Lipid Panel (Reflex Direct LDL) (08/28/2023 9:07 PM EDT) [facility] Cholesterol, Total 203 mg/dL [facility] Comment: Desirable: ? <200 mg/dL Borderline High: 200-239 mg/dL Higher: ?>pi=912 mg/dL Triglyceride 146 mg/dL [facility] Comment: Normal: ?<150 mg/dL Borderline High: 150-199 mg/dL High: ?200-499 mg/dL Very High: ? >ht=220 mg/dL HDL Cholesterol 52 mg/dL [facility] Comment: Females: High Risk: <50 mg/dL Males: High Risk: <40 mg/dL LDL Cholesterol 122 mg/dL [facility] Comment: Desirable: ? <100 mg/dL Above Desirable: 100-129 mg/dL Borderline High: 130-159 mg/dL High: ?160-189 mg/dL Very High: ? >wy=707 mg/dL Lipid Interpretation See Note [facility] Comment: It is important to [...] ACC/AHA Guidelines (most recently Ysabel et al. [facility] 12/09/21): For individuals with atherosclerotic cardiovascular disease (ASCVD)or LDL >mf=096 mg/dL, use a high-intensity statin (40-80 mg [...] Mcmanus MD CHEMISTRY ORDERABLES Performing Organization Address [facility] Co de Phone Number [facility] [place] [address] * Film Library- Storage Only CT Chest (08/28/2023 1:00 PM EDT) Narrative [facility] - 08/28/2023 1:00 PM EDT This exam is auto-finalizing. It's purpose is for storage only. Jaspreet Kinsey MD IMG FILM LIBRARY ORD ERABLES Performing Organization Address [facility] Co de Phone Number [place], [place] * (ABNORMAL) Free Light Chains, Serum (08/25/2023 11:28 AM EDT) [place] Free Light Chain 3.09(H) 0.72 - 2.75 mg/dL [facility] Lambda Free Light Chain 1.65 0.57 - 2.15 mg/dL [facility] [place]/Lambda FLC Ratio 1.8727 0.4000 - 2.5800 [facility] Blood 08/25/2023 11:2 8 AM EDT 08/25/2023 11:36 AM EDT Narrative Resulting Agency Comment Spec In Lab Jaspreet Kinsey MD CHEMISTRY ORDERABLES Performing Organization Address [facility]/ZIP Co de Phone Number [facility] [place] [place] [address] * Lyme IgG & IgM Antibody (08/25/2023 11:28 AM EDT) Lyme Antibody Negative Negative [facility] Lyme Ab Comment Negative result does not exclude possibility of infection. [facility] Comment: Please note that as of 07/14/2022 that this testing is performed by the [facility] at [facility] This change in testing location is associated with a change in testing methodology. Blood 08/25/2023 11:2 8 AM EDT 08/26/2023 7:26 AM EDT Narrative Resulting Agency Comment Spec In Lab Jaspreet Kinsey MD IMMUNOLOGY ORDERABLE S Performing Organization Address [facility]/ZIP Co de Phone Number [facility] [place] [address] * Iron and TIBC (08/25/2023 11:28 AM EDT) Iron 113 30 - 150 mcg/dL [facility] TIBC 338 250 - 450 mcg/dL [facility] Iron Saturation 33 20 - 50 % [facility] Blood 08/25/2023 11:2 8 AM EDT 08/25/2023 11:36 AM EDT Narrative Resulting Agency Comment Spec In Lab Jaspreet Kinsey MD CHEMISTRY ORDERABLES Performing Organization Address City/[facility]/ZIP Co de Phone Number [facility] [place] [address] * Tissue transglutaminase, IgA (08/25/2023 11:28 AM EDT) TTG IgA Ab 0.6 <=10.0 u/ml [facility] Comment: Negative: ??<7 units/mL Indeterminate: 7-10 units/mL Positive: ??>10 units/mL Blood 08/25/2023 11:2 8 AM EDT 08/26/2023 7:26 AM EDT Narrative Resulting Agency Comment Spec In Lab Mary Reyes APRN IMMUNOLOGY ORDERAB LES Performing Organization Address [facility] Co de Phone Number [facility] [place] [address] * Streptococcal Antibody Panel (08/25/2023 11:28 AM EDT) [facility] Aso Titer (JULY) 25 0 - 530 IU/mL [facility] Comment: Test Performed by: [place] [address] Environmental Programs Specialist: Nellie Haney Ph.D.; CLIA# [id number] Dnase B Ab (JULY) 146 0 - 300 unit/mL [facility] Comment: Test Performed by: [facility] [place] [address] Environmental Programs Specialist: Nellie Haney Ph.D.; CLIA# [id number] Blood 08/25/2023 11:2 8 AM EDT 08/25/2023 1:02 PM EDT Narrative Resulting Agency Comment Spec In Lab Jaspreet Kinsey MD LAB SEND OUT ORDERAB LES Performing Organization Address [facility]/ZIP Co de Phone Number [facility] [place] [address] * KATHRINE Antibody Screen (08/25/2023 11:28 AM EDT) [facility] KATHRINE Ab Screen Negative Negative [facility] Comment: This antinuclear antibody (KATHRINE) screen is a qualitative test performed using a fluoroenzyme immunoassay on the [employer] 250 analyzer. This screen is designed to detect antibodies to U1RNP, SS-A/Ro, SS-B/La, centromere B, Scl-70, Dasia-1, and Sm(Alcantar) proteins in serum samples. Antibodies to other nuclear antibodies will not be detected with this assay. This KATHRINE screen is also performed in concert with a quantitative for IgG antibodies to dsDNA. dsDNA Ab 1.0 <=15.0 IU/mL [facility] Comment: <10 negative 10-15 equivocal >15 positive This dsDNA antibody result was generated using a fluoroenzyme immunoassay on the [employer] 250 analyzer. This quantitative test is designed to detect IgG antibodies directed against double stranded DNA in human serum. The presence of antibodies that recognize dsDNA is a highly specific marker for systemic lupus erythematosus. Please note that as of 12/30/2021 that this testing is performed by the [facility] Laboratory at [facility] This change in testing location is associated with a change is testing method and reference intervals. Please review the results of this test in association with the posted reference intervals. Blood 08/25/2023 11:2 8 AM EDT 08/26/2023 7:26 AM EDT Narrative Resulting Agency Comment Spec In Lab Jaspreet Kinsey MD LAB SEND OUT ORDERAB LES Performing Organization Address [facility]/ZIP Co de Phone Number [facility] [place] [address] * IgA (08/25/2023 11:28 AM EDT) IgA 372 70 - 400 mg/dL [facility] Blood 08/25/2023 11:2 8 AM EDT 08/25/2023 11:37 AM EDT Narrative Resulting Agency Comment Spec In Lab Mary Reyes APRN CHEMISTRY ORDERABL ES Performing Organization Address [facility]/ZIP Co de Phone Number [facility] [place] [address] * IgG (08/25/2023 11:28 AM EDT) Immunoglobulin G 1,114 700 - 1,600 mg/dL [facility] Comment: Pediatric Reference Intervals obtained from the Caliper Reference Interval project. http://www.sickkids.ca/caliperproject/index.html Blood 08/25/2023 11:2 8 AM EDT 08/25/2023 11:37 AM EDT Narrative Resulting Agency Comment Spec In Lab Mary Reyes APRN CHEMISTRY ORDERABL ES Performing Organization Address [facility]/ZIP Co de Phone Number [facility] [place] [address] * Ferritin (08/25/2023 11:28 AM EDT) Pathologist [facility] Ferritin 110 11 - 328 ng/mL [facility] Comment: Please note that as of 02/10/2023, the reference intervals for Ferritin have been updated. Blood 08/25/2023 11:2 8 AM EDT 08/25/2023 11:37 AM EDT Narrative Resulting Agency Comment Spec In Lab Jaspreet Kinsey MD CHEMISTRY ORDERABLES Performing Organization Address [facility] Co de Phone Number [facility] [place] [address] * NM PET CT Cardiac Pharmacologic Stress CT Component (08/17/2023 2:38 PM EDT) WORKSTATION ID [id number] DH RAD Anatomical Region Laterality Modality Positron [...] have questions please contact the health healthcare advisory services manager that requested your imaging first. ? Electronically signed by: Clay Stanton MD, [facility] ([phone]), at 08/18/2023 2:49 PM Narrative 08/18/2023 2:49 [...] Coronary calcifications. Bilateral ground glass opacities are [id number] Procedure Note Clay Stanton MD - 08/18/2023 [...] Coronary calcifications. Bilateral ground glass opacities are [id number] IMPRESSION Moderate-sized scar in the apical septum [...] who have questions please contactthe health healthcare advisory services manager that requested your imaging first. Electronically signed by: Clay Stanton MD, [facility]([phone]), at 08/18/2023 2:49 PM Porsha Mcfarlane MD IM PET ORDERABLES * NM PET CT Cardiac Pharmacologic Stress and Rest (08/17/2023 2:38 PM EDT) WORKSTATION ID [id number] RAD Anatomical Region Laterality Modality Positron Emissio [...] have questions please contact the health healthcare advisory services manager that requested your imaging first. ? Electronically signed by: Clay Stanton MD, [facility] ([phone]), at 08/18/2023 2:49 PM Narrative 08/18/2023 2:49 [...] Coronary calcifications. Bilateral ground glass opacities are [id number] Procedure Note Clay Stanton MD - 08/18/2023 EXAMINATION: [place] PET CT CARDIAC PHARMACOLOGIC STRESS AND REST, [place] PET CTCARDIAC PHARMACOLOGIC STRESS CT COMPONENT CLINICAL [...] Coronary calcifications. Bilateral ground glass opacities are [id number] IMPRESSION Moderate-sized scar in the apical septum [...] who have questions please contactthe health healthcare advisory services manager that requested your imaging first. Electronically signed by: Clay Stanton MD, [facility]([phone]), at 08/18/2023 2:49 PM Porsha Mcfarlane MD IMG PET ORDERABLES * Nuclear Pharmacologic Stress Cardiology (PET CT Mobile) (08/17/2023 2:17 PM EDT) Anatomical Region Laterality Modality Other Porsha Mcfarlane MD CARDIAC SERVICES OR DERABLES * COLONOSCOPY (07/07/2023 1:39 PM EDT) COLONOSCOPY [facility] Endoscopy Procedure Date: 07/07/2023 1:39 PM ? Patient Name: Loida Roque ? Date of : 1970 ? Age: 53 ? Order #: [id number] ? Instrument Name: [id number]- [id number] ? Procedure: ? Colonoscopy Indications: ? Abdominal pain, Diarrhea Providers: ? Lashonda Villa MD, [place] ? Mena, Bouchra Mejia MD: ? Medicines: ? Monitored [...] ? was evaluated using the BBPS ? ([place] Bowel Preparation Scale) ? with scores of: [...] Procedure Code(s): ? --- Professional --- ? 01832, Colonoscopy, flexible; with ? biopsy, single or multiple CPT copyright 2021 [employer]. All rights reserved. The codes documented in this report are preliminary and upon care management assistant review may be revised to meet [...] GENERAL SURGICAL ORD ERABLES Performing Organization Address City/State/[facility] Co de Phone Number [employer] from Last 3 Months or Most Recently Relevant to Health Maintenance Advance Directives Documents on File Type Date Recorded Patient Underwriting Clerks Supervisor Expl anation Advance Directives and Livin g [...] Status decision made by: Patient Care Teams Uat Tester Relationship Specialty Start Date End Date Polo Pearce PA [address] [place] [address] PCP - General Internal Medicine 06/09/21
--- OUTSIDE RECORDS SUMMARY | 2023-10-22 00:34 | XMS_ITS | Encounter Summary ---
[place] [address] Care Team Providers Care Montessori Teacher Name Role Phone Polo Pearce Primary Care Provider [phone] Reason for Visit * Diagnostic Test (Routine) - Closed Specialty Diagnoses / Procedures Referred By Jayant harris Referred To Contact Radiology Diagnoses Nausea without vomiting Early satiety Procedures NM Gastric Emptying Scan Mary [place] [address] [place] [address] Referral ID Status Reason Start Date Expiration Date V isits Requested Visits Authorized [id number] Closed Specialty Service Requested 08/25/2023 02/23/2025 1 1 Encounter Details Date Type Department Care Team (Late st Contact Info) Description 10/21/2023 9:03 AM EDT Hospital Encounter [place] [address] [place] [address] Arrived Social History Tobacco Use Types Packs/Day Years Used Date Smoking Tobacco: Never Smokeless Tobacco: Never Alcohol Use Standard Drinks/Week Comments Never 0 (1 standard drink = 0.6 oz pur e alcohol) [facility] Utilities Answer Date Recorded In the past [...] a nursing home (including now)? No 06/15/2023 Housing Stability [...] any time in the past 12 m [facility], were you homeless or living in a nursing home (including now)? No 08/30/2023 DH IPV [...] PM EDT Office Visit Cardiology at [address] [phone] Jaspreet Kinsey MD [facility] [place] [address] 10/28/2023 9:00 AM EDT Office [place] [address] 10/29/2023 10:00 AM EDT Clinical Support [place] [address] 10/29/2023 10:15 AM EDT Procedure visit [place] [address] 11/01/2023 5:00 PM EDT Office Visit [place] [phone] Selene Browning, PhD [facility] [place] [address] 11/22/2023 4:40 PM EDT Office Visit Cardiology at [address] [phone] Porsha Mcdaniels MD [facility] [place] [address] 12/13/2023 10:00 AM EDT Clinical Support [place] [phone] [facility] [place] [address] documented as of this encounter Procedures Procedure Name Priority Date/Time Associated Diagnosis Comments NM GASTRIC EMPTYING SCAN Routine 10/21/2023 1:54 PM EDT Nausea without vomiting Early satiety documented in this encounter Results * NM Gastric Emptying Scan (10/21/2023 1:54 PM EDT) WORKSTATION ID [id number] [facility] Anatomical Region Laterality Modality Nuclear Medicine [...] have questions please contact the health healthcare management that requested your imaging first. ? Electronically signed by: Humberto Qureshi MD, [facility] ([phone]), at 10/21/2023 5:16 PM Narrative 10/21/2023 5:16 [...] who have questions please contactthe health healthcare management that requested your imaging first. Electronically signed by: Humberto Qureshi MD, [facility]([phone]), at 10/21/2023 5:16 PM Mary Reyes BERRY PLANTER IMG NM ORDERABLES documented in this encounter Visit Diagnoses Not on filedocumented in this encounter Care Teams Montessori Teacher Relationship Specialty Start Date End Date Polo Pearce PA [address] [place] [address] PCP - General Internal Medicine 06/09/21 documented as of this encounter
--- OUTSIDE RECORDS SUMMARY | 2023-10-22 00:34 | XMS_ITS | Encounter Summary ---
Author Organization [facility] Address [facility] [place] [address] Care Team Providers Care Coating Operator Name Role Phone Polo Pearce Primary Care Provider [phone] Encounter Details Date Type Department Care Team [...] any time in the past 12 m [facility], were you homeless or living in [...] PM EDT Office Visit Cardiology at [address] [address] Jaspreet Kinsey MD [facility] [place] [place] [address] 10/28/2023 9:00 AM EDT Office [place] [address] 10/29/2023 10:00 AM EDT Clinical [place] [address] 10/29/2023 10:15 AM EDT Procedure [place] [address] 11/01/2023 5:00 PM EDT Office Visit [place] [phone] Selene Browning, PhD [facility] DR [place] [address] 11/22/2023 4:40 PM EDT Office Visit Cardiology at [place] [phone] Porsha Mcdaniels MD [facility] [place] [address] 12/13/2023 10:00 AM EDT Clinical Support Gastroenterology at [place] [phone] [facility] [place] [address] documented as of this encounter Visit Diagnoses Not on filedocumented in this encounter Care Teams Coating Operator Relationship Specialty Start Date End Date Polo Pearce PA [address] [place] [address] PCP - General Internal Medicine 06/09/21 documented as of this encounter
--- OUTSIDE RECORDS SUMMARY | 2023-10-22 00:35 | XMS_ITS | Encounter Summary ---
Author Organization [facility] Address [facility] [place] [address] Care Team Providers Care Goat Farmer Name Role Phone Polo Pearce Primary Care Provider [phone] Encounter Details Date Type Department Care Team (Late st Contact Info) Description 08/28/2023 1:05 PM EDT Ancillary Procedure [place] [address] Jaspreet Kinsey MD [facility] [place] [address] Social History Tobacco Use Types Packs/Day Years Used Date Smoking Tobacco: Never Smokeless Tobacco: Never Alcohol Use Standard Drinks/Week Comments Never 0 (1 standard drink = 0.6 oz pur e alcohol) [facility] Utilities Answer Date Recorded In the past 12 months has e [employer], gas, oil, or water [employer] threatened to shut off services in your [...] in a jail (including now)? No 06/15/2023 IPV Inpatient Questions [...] PM EDT Office Visit Cardiology at [address] [phone] Jaspreet Kinsey MD [facility] [place] [address] 10/28/2023 9:00 AM EDT Office Visit [place] [address] 10/29/2023 10:00 AM EDT Clinical Support [place] [address] 10/29/2023 10:15 AM EDT Procedure visit [place] [address] 11/01/2023 5:00 PM EDT Office Visit [place] [phone] Selene Browning, PhD [facility] [place] [address] 11/22/2023 4:40 PM EDT Office Visit Cardiology at [address] [phone] Porsha Mcdaniels MD [facility] CARDIOLOGY [place], [place] [address] 12/13/2023 10:00 AM EDT Clinical Support [place] [phone] Lucero Romero, RD [facility] [place] [address] documented as of this encounter Procedures Procedure Name Priority Date/Time Associated Diagnosis Comments FILM LIBRARY STORAGE ONLY CT CHEST Routine 08/28/2023 1:00 PM EDT documented in this encounter Results * Film Library- Storage Only CT Chest (08/28/2023 1:00 PM EDT) Narrative [facility] - 08/28/2023 1:00 PM EDT This exam is auto-finalizing. It's purpose is for storage only. Jaspreet Kinsey MD G FILM LIBRARY ORD ERABLES [place], [place] documented in this encounter Visit Diagnoses Not on filedocumented in this encounter Care Teams Goat Farmer Relationship Specialty Start Date End Date Polo Pearce PA [address] [place] [address] PCP - General Internal Medicine 06/09/21 documented as of this encounter
--- OUTSIDE RECORDS SUMMARY | 2023-10-22 00:35 | XMS_ITS | Encounter Summary ---
Author Organization [facility] [place] [address] Care Team Providers Care Ice Cream Freezer Assistant Name Role Phone Polo Pearce Primary Care Provider [phone] Reason for Visit * Diagnostic Test (Routine) - Closed Specialty Diagnoses / Procedures Referred By Jayant harris Referred To Contact Diagnoses Mesenteric ischemia Procedures Duplex Study Visceral Arteries, Comp Colette Marx APRN [facility] [place] [address] [facility] Vascular Lab [address] [address] Referral ID Status Reason Start Date Expiration Date V isits Requested Visits Authorized [id number] Closed Specialty Service Requested 06/28/2023 06/27/2024 1 1 Encounter Details Date Type Department Care Team (Late st Contact Info) Description 10/08/2023 8:30 AM EDT Tech Visit [place] [phone] [place] Escob[place] Mesenteric ischemia [...] in the past 12 m [facility], were you homeless or living [...] PM EDT Office Visit Cardiology at [address] [place] [address] Jaspreet Kinsey MD [facility] [place] [address] 10/28/2023 9:00 AM EDT Office [place] [address] 10/29/2023 10:00 AM EDT Clinical [place] [address] 10/29/2023 10:15 AM EDT Procedure [place] [address] 11/01/2023 5:00 PM EDT Office Visit [place] [phone] Selene Browning, PhD [facility] [place] [address] 11/22/2023 4:40 PM EDT Office Visit Cardiology at [address] [phone] Porsha Mcdaniels MD [facility] [place] [address] 12/13/2023 10:00 AM EDT Clinical [place] [phone] [facility] [place] [address] documented as of this encounter Procedures Procedure Name Priority Date/Time Associated Diagnosis Comments MESENTERIC COMPLETE Routine 10/08/2023 8 :22 AM EDT Mesenteric ischemia documented in this encounter Results * Duplex Study Visceral Arteries, Comp (10/08/2023 8:22 AM EDT) VB Text Report Department: Vascular Surgery Lab Patient: [id number] (LOIDA ROQUE) CPT: 48099 Referring Physician: JUDITH PICKENS ?? Phone: Indications: [...] within mesenteric artery stents may differ from [place] arteries, with thresholds for diagnosis of significant stenosis likely being somewhat higher in stented arteries than [place].% To date, there is no evidence based consensus of stent velocity criteria. Therefore, the current interpretation is based on [place] artery thresholds. Previous Celiac/Mesenteric Studies: Date ? [...] intestine documented in this encounter Care Teams Ice Cream Freezer Assistant Relationship Specialty Start Date End Date Polo Pearce PA [address] [place] [address] PCP - General Internal Medicine 06/09/21 documented as of this encounter
--- OUTSIDE RECORDS SUMMARY | 2023-10-22 00:35 | XMS_ITS | Encounter Summary ---
Author Organization [facility] [place] [address] Care Team Providers Care Head Of Sales Name Role Phone Polo Pearce Primary Care Provider [phone] Encounter Details Date Type Department Care Team (Late st Contact Info) Description 09/20/2023 [place] [phone] Vito Pearce MD [facility] [place] [address] Social History Tobacco Use Types Packs/Day Years Used Date Smoking Tobacco: Never Smokeless Tobacco: Never Alcohol Use Standard Drinks/Week Comments Never 0 (1 standard drink = 0.6 oz pur e alcohol) [facility] Utilities Answer Date Recorded In the past 12 months has [employer], gas, oil, or water [employer] threatened to shut off services in your [...] a long term (including now)? No 06/15/2023 Housing Stability Vital [...] time in the past 12 m [facility], were you homeless or living in a long term (including now)? No 08/30/2023 DH IPV Inpatient [...] proBNP: 4763 Imaging: EKG: sinus bradycardia, slight ADAN in aVR with inferolateral STD (consistent with [...] oscillating regional function of the anterior wall. [facility] 04/2023 Coronary Angiography: Dominance: Right Left [...] PM EDT Office Visit Cardiology at [address] [place] [address] Jaspreet Kinsey MD [facility] [place] [address] 10/28/2023 9:00 AM EDT Office [place] [address] 10/29/2023 10:00 AM EDT Clinical [place] [address] 10/29/2023 10:15 AM EDT Procedure visit [place] [address] 11/01/2023 5:00 PM EDT Office [place] [address] Selene Browning, [facility] [place] [address] 11/22/2023 4:40 PM EDT Office Visit Cardiology at [address] [phone] Porsha Mcdaniels MD [facility] [place] [address] 12/13/2023 10:00 AM EDT Clinical [place] [phone] [facility] [place] [address] documented as of this encounter Visit Diagnoses Not on filedocumented in this encounter Care Teams Head Of Sales Relationship Specialty Start Date End Date Polo Pearce PA [address] [place] [address] PCP - General Internal Medicine 06/09/21 documented as of this encounter
--- OUTSIDE RECORDS SUMMARY | 2023-10-22 00:35 | XMS_ITS | Encounter Summary ---
[place] [address] Care Team Providers Care Paint Spray Inspector Name Role Phone Polo Pearce Primary Care Provider [phone] Reason for Referral * Consultation (Routine) - Authorized Specialty Diagnoses / Procedures Referred By Jayant harris Referred To Contact Cardiology Diagnoses NSTEMI (non-ST elevated myocardial infarction) [place] [address] Cardiac Rehab, [address] [place] [address] Referral ID Status Reason Start Date Expiration Date Visits Requested Visits Authorized [id number] Authorized Consult, Test & Treat Non PCP 09/10/2023 2024 36 36 Reason for Visit * Auth/Cert (Routine) Specialty Diagnoses / Procedures Referred By Jayant harris Referred To Contact Diagnoses NSTEMI (non-ST elevated myocardial infarction) NSTEMI Procedures EMERGENCY MICHELLEI [place] [address] [facility] Referral ID Status Reason Start Date Expiration Date Visits Re quested Visits Authorized [id number] 1 1 Encounter Details Date Type Department Care Team (Latest Contact Info) Description 08/28/2023 8:27 PM EDT - 09/10/2023 5:31 PM EDT Hospital Encounter Heart and Vascular Unit Level 3 Wing B at [place] [phone] Kia Angelo MD [facility] [place] [address] [place] [address] Eufemia Copeland MD [facility] [place] [address] [place] [address] Samantha Broussard MD [facility] [place] [address] [place] [address] Paresthesia of hand, bilateral; SVT (supraventricular tachycardia); [...] Recorded In the past 12 months has [employer], gas, oil, or water [employer] threatened to shut off services in your [...] any time in the past 12 m [facility], were you homeless or living in a [...] Loida Madrigal Patient Age: 53 y.o. Language: Panamanian Race: [...] nitrate as a next step outpatient (the sbaas could be stopped if BP room needed) - ropinirole is associated with AF and chest pain. consider stopping this - continue the spironolactone - continue the ranexa - continue torsemide 40 mg bid. Inpatient Provider Contact Information: For questions regarding this document or issues relating to this hospitalization on the Medical Service, please contact your inpatient physician through the [facility] Tactical Response Group Officer . Issues afterhours and on weekends will [...] 09/05/2023 4:25 PM) Result Value WORKSTATION ID [id number] Narrative EXAMINATION: CTA/CT ABDOMEN AND PELVIS W [...] who have questions please contact the health hospice spiritual care coordinator that requested your imaging first. 08/29/23 Interpretation [...] treatment for possible ACS, and transfer to [facility] for further management. Prior to transfer, patient [...] Administered Date(s) Administered Moderna Covid-19 Monovalent 12Yr+ (Machine Bender 100mcg) 03/06/2020, 04/03/2020 Discharge Medications: Your Medications [...] weight gain + increasing shortness of breath. [id number] minutes prior to a dose of torsemide). [...] of 8AM-5PM please call the Cardiology Clinic [phone] to speak with a nurse. All other hours please call the Hospital Tactical Response Group Officer [phone] and ask to speak to the cardiovascular hospitalist on-call. Follow up Appointments: Doctor Where Phone # Date Time PCP JOCY Franco [address] [place] [address] Please call to set up a follow up appointment. Cardiology Jaspreet Kinsey MD Cardiology at [place] Arrive at: [facility] [address] [phone] 10/26/2023 4:00 PM General Instructions None Future Appointments and Orders Future Appointments and Orders Future Appointments Provider Department Dept Phone 10/21/2023 10:30 AM [facility] 1 Nuclear Medicine at [facility] Arrive at: [facility] RADIOLOGY [phone] Please do not eat or drink anything for at least 6 hours prior to your appointment. 10/21/2023 11:30 AM [facility] 1 Nuclear Medicine at [facility] Arrive at: [facility] RADIOLOGY [phone] Please do not eat or drink anything for at least 6 hours prior to your appointment. 10/21/2023 12:30 PM [facility] 1 Nuclear Medicine at [facility] Arrive at: [facility] RADIOLOGY [phone] Please do not eat or drink anything for at least 6 hours prior to your appointment. 10/21/2023 1:30 PM [facility] 1 Nuclear Medicine at [facility] Arrive at: [facility] RADIOLOGY [phone] Please do not eat or drink anything for at least 6 hours prior to your appointment. 10/21/2023 2:30 PM [facility] RO[facility] 1 Nuclear Medicine at [facility] Arrive at: [facility] RADIOLOGY [phone] Please do not eat or drink anything for at least 6 hours prior to your appointment. 10/26/2023 4:00 PM Jaspreet Kinsey MD Cardiology at [place] Arrive at: [facility] [address] [phone] 10/28/2023 9:00 AM [facility] 2 Gastroenterology at [facility] Arrive at: Inspector Experimental Assembly Area 4T [phone] 10/29/2023 10:00 AM [facility] 2 Gastroenterology at [facility] Arrive at: Inspector [employer] [facility] 4T [phone] 10/29/2023 10:15 AM [facility] 2 Gastroenterology at [facility] Arrive at: Inspector [employer] [facility] 4T [phone] 11/22/2023 4:40 PM Porsha Mcdaniels MD Cardiology at [facility] Arrive at: [facility] [employer] [facility] 4A [phone] 12/13/2023 10:[address] Gastroenterology at [facility] Arrive at: Inspector [employer] Area Discharge References/Attachments None Greater than 30 minutes was spent on this discharge including documentation, pykn-ck-gnak time withthe patient, patient education, order processing manager, coordination with pharmacy and other patient care. [...] of 8AM-5PM please call the Cardiology Clinic [phone] to speak with a nurse. All other hours please call the Hospital Tactical Response Group Officer [phone] and ask to speak to the cardiovascular hospitalist on-call. Follow up Appointments: Doctor Where Phone # Date Time PCP JOCY Franco Dr [address] [place] [address] Please call to set up a follow up appointment. Cardiology Jaspreet Kinsey MD Cardiology at [place] Arrive at: [facility] [address] [phone] 10/26/2023 4:00 PM documented in this encounter [...] as needed. fluticasone propionate (FLONASE) 50 mcg/actuation Gardners, Suspension 1 spray by Each Nare route [...] Center Cardiovascular Medicine CV HOSPITALIST 1 - [facility] DAILY PROGRESS NOTE Page [phone] to reach a provider 28/09 Admit Date: [...] hest pain, found to have transferred to [facility] for further management of NSTEMI. Patient found [...] ointment Diet: Daily Healthy Menu Choices/Cardiac diet ([facility]-Diet) DVT Prophylaxis: DOAC Code status: Attempt Cardiopulmonary Resuscitation - Inpatient Disposition: Discharge Location: [facility] Basic Mobility Raw Score: 19 PT: OT: PCP JOCY Franco [phone] Lloyd Keating MD 09/09/2023 * Florencia Ortez [...] Center Cardiovascular Medicine CV HOSPITALIST 1 - [facility] DAILY PROGRESS NOTE Page [phone] to reach a provider 28/09 Admit Date: [...] hest pain, found to have transferred to [facility] for further management of NSTEMI. Patient found [...] ointment Diet: Daily Healthy Menu Choices/Cardiac diet ([facility]-Diet) DVT Prophylaxis: DOAC Code status: Attempt Cardiopulmonary Resuscitation - Inpatient Disposition: Discharge Location: AM-[facility] Basic Mobility Raw Score: 24 PT: OT: PCP JOCY Franco [phone] Lloyd Keating MD 09/08/2023 * Edith [place] [...] Center Cardiovascular Medicine CV HOSPITALIST 1 - [facility] DAILY PROGRESS NOTE Page [phone] to reach a provider 28/09 Admit Date: [...] hest pain, found to have transferred to [facility] for further management of NSTEMI. Patient found [...] ointment Diet: Daily Healthy Menu Choices/Cardiac diet ([facility]-Diet) DVT Prophylaxis: DOAC Code status: Attempt Cardiopulmonary Resuscitation - Inpatient Disposition: Discharge Location: [facility] Basic Mobility Raw Score: 24 PT: OT: PCP JOCY Franco [phone] Lloyd Keating MD 09/07/2023 * Dona Hanks [...] Center Cardiovascular Medicine CV HOSPITALIST 1 - [facility] DAILY PROGRESS NOTE Page [phone] to reach a provider 28/09 Admit Date: [...] hest pain, found to have transferred to [facility] for further management of NSTEMI. Patient found [...] ointment Diet: Daily Healthy Menu Choices/Cardiac diet ([facility]Diet) DVT Prophylaxis: DOAC Code status: Attempt Cardiopulmonary Resuscitation - Inpatient Disposition: Discharge Location: AM-[facility] Basic Mobility Raw Score: 24 PT: OT: PCP JOCY Franco [phone] Lloyd Keating MD 09/06/2023 * Channing Montanez [...] at OSH with chest pain, transferred to [facility] for further management of NSTEMI. On arrival, [...] Miscellaneous Lab request Result Value Ref Range [facility] Lab Result Request received in lab. Hemogram [...] chest pain, found to have transferred to [facility] for further management of NSTEMI. Patient found [...] ointment Diet: Daily Healthy Menu Choices/Cardiac diet ([facility]-Diet) DVT Prophlaxis: DOAC Code status: Attempt Cardiopulmonary [...] screened for hospital length of stay and typewriter assembler met patient at bedside. Patient states thattheir [...] Orders Diet Daily Healthy Menu Choices/Cardiac diet ([facility]-Diet) Frequency: Effective Now Number of Occurrences: Until [...] unless consulted in the interim. LORNA Berrios Photographic Process Screen Maker * Samantha Broussard MD - 09/04/2023 8:35 [...] at OSH with chest pain, transferred to [facility] for further management of NSTEMI. On arrival, [...] found to have elevated NSTEMI, transferred to [facility] for further management of NSTEMI. Patient found [...] ointment Diet: Daily Healthy Menu Choices/Cardiac diet ([facility]-Diet) DVT Prophlaxis: DOAC Code status: Attempt Cardiopulmonary [...] found to have elevated NSTEMI, transferred to [facility] for further management of NSTEMI. Patient found [...] ointment Diet: Daily Healthy Menu Choices/Cardiac diet ([facility]Diet) DVT Prophlaxis: DOAC Code status: Attempt Cardiopulmonary [...] found to have elevated NSTEMI, transferred to [facility] for further management of NSTEMI. Patient found [...] neurontin Diet: Daily Healthy Menu Choices/Cardiac diet ([facility]-Diet) DVT Prophlaxis: DOAC Code status: Attempt Cardiopulmonary [...] found to have elevated NSTEMI, transferred to [facility] for further management of NSTEMI. Patient found [...] neurontin Diet: Daily Healthy Menu Choices/Cardiac diet ([facility]-Diet) DVT Prophlaxis: DOAC Code status: Attempt Cardiopulmonary [...] 7:25 AM EDT CV HOSPITALIST 1 - [facility] DAILY PROGRESS NOTE Page [phone] to reach a provider 28/09 Admit Date: [...] found to have elevated NSTEMI, transferred to [facility] for further management of NSTEMI. Patient found [...] duloxetine Diet: Daily Healthy Menu Choices/Cardiac diet ([facility]-Diet) DVT Prophlaxis: DOAC Code status: Attempt Cardiopulmonary Resuscitation - Inpatient Disposition: Discharge Planning: AM-PAC Basic Mobility Raw Score: 19 PT: OT: PCP JOCY Franco [phone] * Mary Castaneda RCP - 08/31/2023 5:18 [...] 9:11 PM EDT CV HOSPITALIST 1 - [facility] DAILY PROGRESS NOTE Page [phone] to reach a provider 28/09 Admit Date: [...] found to have elevated NSTEMI, transferred to [facility] for further management of NSTEMI Plan: #Acute [...] duloxetine Diet: Daily Healthy Menu Choices/Cardiac diet ([facility]-Diet) DVT Prophlaxis: DOAC Code status: Attempt Cardiopulmonary Resuscitation - Inpatient Disposition: Discharge Planning: AM-PAC Basic Mobility Raw Score: 19 PT: OT: PCP JOCY Franco [phone] * Neli Alcantar RN - 08/29/2023 3:25 [...] 7:07 AM EDT CV HOSPITALIST 1 - [facility] DAILY PROGRESS NOTE Page [phone] to reach a provider 28/09 Admit Date: [...] found to have elevated NSTEMI, transferred to [facility] for further management of NSTEMI Plan: #Acute [...] duloxetine Diet: Daily Healthy Menu Choices/Cardiac diet ([facility]-Diet) DVT Prophlaxis: heparin gtt Code status: Attempt Cardiopulmonary Resuscitation - Inpatient Disposition: Discharge Planning: AM-PAC Basic Mobility Raw Score: 19 PT: OT: PCP JOCY Franco [phone] documented in this encounter H&P Notes * [...] treatment for possible ACS, and transfer to [facility] for further management. Prior to transfer, patient [...] 3.56) performed by Lashonda Villa MD at [facility] ENDOSCOPY PRO UPPER GI ENDOSCOPY, BIOPSY N/A 07/07/2023 EGD WITH BIOPSY (WRVU 2.39) performed by Lashonda Villa MD at [facility] ENDOSCOPY VS ARTERIOGRAM MESENTERIC VASCULAR SURGERY [...] as needed. fluticasone propionate (FLONASE) 50 mcg/actuation Gardners, Suspension 1 spray by Each Nare route [...] 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 Lives [place] [facility] Social Determinants of Health Financial Resource [...] Administered Date(s) Administered Moderna Covid-19 Monovalent 12Yr+ (Machine Bender 100mcg) 03/06/2020, 04/03/2020 Physical Exam: Last Set [...] found to have elevated NSTEMI, transferred to [facility] for further management #NSTEMI, type I vs [...] N/A Patient is insured through: Primary Insurance: [employer] [place] Pay[place] [employer] [place] / Plan[place] / [...] respiratory supplies, other (see comments) (BiPAP through [employer]) DME Needed at Discharge: No Patient is insured through: Primary Insurance: [employer] [place] [employer] [place] / Plan: [place] / [...] Pt will be receiving Cardiac rehab at [facility] post discharge. D/c plan pending clinical [...] in an outpatient cardiac rehabilitation program at [facility] was discussed. Patient agrees to a [...] Admitted From: Transfer from another hospital Location: [facility] Reason for Hospitalization: overall not feeling [...] homeless or living in a fpc (including now)?: No In the past 12 months has the electric, gas, oil, or water [employer] threatened to shut off services in your [...] respiratory supplies, other (see comments) (BiPAP through [employer]) [address] [facility] [address] Social & Family Supports: All names listed [...] Specific Information: N/A Health/Prescription Coverage: Primary Insurance: [employer] [place] Payor: [employer] [facility] [place] / Plan: [facility] [place] EXCHANGE / Product Type: *No Product type* / Secondary Insurance: N/A Prescription Coverage: Yes Preferred Pharmacy: [facility] [address] [place], [place] - [address] [facility] [address] [facility] [address] [facility] [place], [place] - [address] [facility] [address] [facility] [address] [facility] [address] [place] Status: Patient is a : No Primary Care Provider confirmed: JOCY Franco [phone] Patient/Caregiver Goals of Treatment: home when MR [...] the original note were not included. Formerly [facility] [place] [address] INPATIENT CARDIOLOGY CONSULT NOTE Reason for Consult: Chest pain HPI: Loida Madrigal is a 53 y.o. obese female, history of non-obstructive CAD ([facility] 04/2023) with suspicion for microvascular dysfunction [...] PM EDT Office Visit Cardiology at [address] [phone] Jaspreet Kinsey MD [facility] [address] 10/28/2023 9:00 AM EDT Office [place] [address] 10/29/2023 10:00 AM EDT Clinical Support [place] [address] 10/29/2023 10:15 AM EDT Procedure visit [place] [address] 11/01/2023 5:00 PM EDT Office [place] [phone] Selene Browning, PhD [facility] [place] [address] 11/22/2023 4:40 PM EDT Office Visit Cardiology at [address] [phone] Porsha Mcdaniels MD [facility] [place] [address] 12/13/2023 10:00 AM EDT Clinical [place] [phone] [facility] [place] [address] Scheduled Orders Name Type Priority Associated Diagnoses [...] DIFFERENTIAL, AUTOMATED Routine 09/04/19 3:03 AM EDT CBC (WITH DIFF) Routine 09/04/2023 3:03 AM EDT MAGNESIUM Routine 09/04/2023 3:03 AM EDT BASIC METABOLIC PANEL Routine 09/04/2023 3:03 AM EDT EKG 12-LEAD STAT 09/03/2023 6:02 AM EDT Non-ST elevation myocardial infarction (NSTEMI) EKG 12-LEAD STAT 09/03/2023 3:05 AM EDT Non-ST elevation myocardial infarction (NSTEMI) HEMOGRAM Routine 09/03/2023 2:39 AM EDT DIFFERENTIAL, AUTOMATED Routine 09/03/19 2:39 AM EDT CBC (WITH DIFF) Routine [...] DIFFERENTIAL, AUTOMATED Routine 09/01/19 3:08 AM EDT CBC (WITH DIFF) Routine 09/01/2023 3:08 AM EDT MAGNESIUM Routine 09/01/2023 3:08 AM EDT BASIC METABOLIC PANEL Routine 09/01/2023 3:08 AM EDT PHOSPHORUS Routine 08/31/2023 5:03 PM EDT MAGNESIUM Routine 08/31/2023 5:03 PM EDT BASIC METABOLIC PANEL Routine 08/31/2023 5:03 PM EDT HEMOGRAM Routine 08/31/2023 2:18 AM EDT DIFFERENTIAL, AUTOMATED Routine 08/31/19 2:18 AM EDT CBC (WITH DIFF) Routine [...] * Differential, Automated (09/10/2023 4:17 AM EDT) Pathologist [facility] Neutrophil % 54.4 % [facility] Neutrophil Absolute 4.17 1.70 - 6.10 x10(3)/[facility] LAB[facility] Lymph % 33.2 % [facility] Lymphocytes Abs 2.5 0.9 - 3.2 x10(3)/[facility] Monocyte % 8.4 % [facility] Monocyte Abs 0.6 0.3 - 0.9 x10(3)/[facility]OR[facility] Eos % 3.0 % [facility] Eosinophils Abs 0.2 0.0 - 0.4 x10(3)/[facility]OR[facility] Basophil % 0.7 % [facility] Baso Absolute 0.0 0.0 - 0.1 x10(3)/[facility] Immature Gran % 0.30 % [facility] Comment: Immature granulocytes(IG's)percentage and absolute count will include metamyelocytes, myelocytes, and promyelocytes. Blood smears from CBCs yielding IG's will be scanned manually for concordance. If this scan disagrees with the automated IG or if promyelocytes are noted, a manual differential will be performed. Immature Gran Absolute 0.02 0.00 - 0.04 x10(3)/[facility] LABORATORY Blood 09/10/2023 4:17 AM EDT 09/10/2023 4:29 AM EDT Narrative Resulting Agency Comment Spec In Lab Eufemia Copeland MD HEMATOLOGY ORDERAB LES [facility] [place] [address] * (ABNORMAL) Hemogram (09/10/2023 4:17 AM EDT) [facility] White Blood Cell 7.6 4.0 - 9.5 x10(3)/[facility] LABORATORY Red Blood Cell 4.15 4.00 - 5.21 x10(6)/[facility] LABORATORY Hemoglobin 13.0 11.7 - 15.5 g/dL [facility] Hematocrit 39.2 35.7 - 45.8 % [facility] Mean Cell Volume 94.5(H) 82.6 - 94.4 fL [facility] Mean Cell Hemoglobin 31.3 27.1 - 32.0 pg [facility] Mean Cell Hemoglobin Concentration 33.2 31.7 - 35.0 g/dL [facility] Platelet 267 145 - 357 x10(3)/[facility] LABORATORY RDW Standard Deviation 44.6 37.0 - 46.0 [facility] LABORAT[facility] RDW coefficient of variation 13.1 11.5 - 14.1 % [facility] Mean Platelet Volume 10.3 7.6 - 12.9 [facility] NRBC% auto 0.0 % [facility] NRBC Absolute 0.000 0.000 - 0.000 x10(3)/[facility]OR[facility] Blood 09/10/2023 4:17 AM EDT 09/10/2023 4:29 AM EDT Narrative Resulting Agency Comment Spec In Lab Eufemia Copeland MD HEMATOLOGY ORDERAB LES [facility] [place] [address] * (ABNORMAL) Basic Metabolic Panel (non-fasting) (09/10/2023 4:17 AM EDT) Glucose 92 65 - 199 mg/dL [facility] Comment:Diabetes: >=200 mg/d L plus symptoms Blood Urea Nitrogen 27(H) 8 - 18 mg/dL [facility] Creatinine 1.39(H) 0.70 - 1.20 mg/dL [facility] [...] - 107 mmol/L [facility] Carbon Dioxide 24 22 - 31 mmol/L [facility] Anion Gap 11 5 - 15 mmol/L [facility] Calcium 9.4 8.5 - 10.5 mg/dL [facility] Est Glomerular Filtration Rate 45(L) >=60 mL/min/1. 73 m?? [facility] [...] Lab Eufemia Copeland MD CHEMISTRY ORDERABL ES [facility] [place] [address] * Magnesium (09/10/2023 4:17 AM EDT) Magnesium 0.99 0.69 - 1.07 mmol/L [facility] Blood 09/10/2023 4:17 AM EDT 09/10/2023 4:29 AM EDT Narrative Resulting Agency Comment Spec In Lab Eufemia Copeland MD CHEMISTRY ORDERABL ES Performing Organization Address City/[facility]/[place] [address] * Differential, Automated (09/09/2023 5:10 AM EDT) Neutrophil % 54.1 % [facility] Neutrophil Absolute 4.00 1.70 - 6.10 x10(3)/[facility] Lymph % 31.7 % [facility] Lymphocytes Abs 2.3 0.9 - 3.2 x10(3)/[facility] Monocyte % 9.5 % [facility] Monocyte Abs 0.7 0.3 - 0.9 x10(3)/[facility]ORAT[facility] Eos % 3.5 % [facility] Eosinophils Abs 0.3 0.0 - 0.4 x10(3)/[facility]OR[facility] Basophil % 0.8 % [facility] Baso [...] - 0.04 x10(3)/[facility] Blood 09/09/2023 5:10 AM EDT 09/09/2023 5:19 AM EDT Narrative Resulting Agency Comment Spec In Lab Eufemia Copeland MD HEMATOLOGY ORDERAB LES Performing Organization Address City/[facility]/ZIP Co de Phone Number [facility] [place] [address] * (ABNORMAL) Hemogram (09/09/2023 5:10 AM EDT) [facility] White Blood Cell 7.4 4.0 - 9.5 x10(3)/[facility] LABORATORY Red Blood Cell 4.09 4.00 - 5.21 x10(6)/[facility] LABOR[facility]ORY Hemoglobin 13.0 11.7 - 15.5 g/dL [facility] Hematocrit 39.2 35.7 - 45.8 % [facility] Mean Cell Volume 95.8(H) 82.6 - 94.4 fL [facility] Mean Cell Hemoglobin 31.8 27.1 - 32.0 pg [facility] Mean Cell Hemoglobin Concentration 33.2 31.7 - 35.0 g/dL [facility] Platelet 267 145 - 357 x10(3)/[facility] LABORATORY RDW Standard Deviation 45.3 37.0 - 46.0 [facility] LABORATORY RDW coefficient of variation 12.9 11.5 - 14.1 % [facility] Mean Platelet Volume 9.9 7.6 - 12.9 [facility] NRBC% auto 0.0 % [facility] [facility] NRBC Absolute 0.000 0.000 - 0.000 x10(3)/[facility] LABORATORY Blood 09/09/2023 5:10 AM EDT 09/09/2023 5:19 AM EDT Narrative Resulting Agency Comment Spec In Lab Eufemia Copeland MD HEMATOLOGY ORDERAB LES [facility] [place] [address] * (ABNORMAL) Basic Metabolic Panel (non-fasting) (09/09/2023 5:10 AM EDT) [facility] Glucose 97 65 - 199 mg/dL [facility] Comment:Diabetes: >=200 mg/d L plus symptoms Blood Urea Nitrogen 22(H) 8 - 18 mg/dL [facility] Creatinine 1.36(H) 0.70 - 1.20 mg/dL [facility] [...] questions. Chloride 100 98 - 107 mmol/L [facility] Carbon Dioxide 25 22 - 31 mmol/L [facility] Anion Gap 12 5 - 15 mmol/L [facility] Calcium 9.5 8.5 - 10.5 mg/dL [facility] Est Glomerular Filtration Rate 46(L) >=60 mL/min/1. 73 m?? [facility] [...] Lab Eufemia Copeland MD CHEMISTRY ORDERABL ES [facility] [place] [address] * Magnesium (09/09/2023 5:10 AM EDT) Magnesium 0.97 0.69 - 1.07 mmol/L [facility] Blood 09/09/2023 5:10 AM EDT 09/09/2023 5:19 AM EDT Narrative Resulting Agency Comment Spec In Lab Eufemia Copeland MD CHEMISTRY ORDERABL ES Performing Organization Address City/[facility]/ZIP Co de Phone Number [facility] [place] [address] * EKG 12 Lead (09/08/2023 4:01 AM EDT) Ventricular rate 59 BPM MUSE SYSTEM Atrial Rate 59 BPM MUSE SYSTEM P-R Interval 192 ms MUSE SYSTEM QRS Duration 92 ms MUSE SYSTEM Q-T Interval 452 ms MUSE SYSTEM QTC Calculated (Bezet) 447 ms MUSE SYSTEM Calculated P [place] 38 degrees MUSE SYSTEM Calculated R [place] 51 degrees MUSE SYSTEM Calculated T [place] -18 degrees MUSE SYSTEM INTERPRETATION Sinus bradycardia Diffuse ST depression, consider subendocardial injury Abnormal ECG When compared with ECG of 03-SEP-2023 06:02, Premature atrial complexes are no longer Present QT has shortened I personally reviewed the tracing and edited the fellows interpretation Confirmed by fellow Vito Pearce ([id number]) on 09/08/2023 7:40:32 AM Confirmed by MD Angelo Danette ([id number]) on 09/08/2023 2:12:57 PM MUSE SYSTEM 09/08/2023 4:01 AM EDT 09/08/2023 2:12 PM EDT Eufemia Copeland MD ECG ORDERABLES Performing Organization Address City/[facility]/ZIP Co de Phone Number MUSE SYSTEM * Differential, Automated (09/08/2023 2:22 AM EDT) Neutrophil % 55.2 % [facility] Neutrophil Absolute 4.74 1.70 - 6.10 x10(3)/[facility] LABORATORY Lymph % 30.8 % [facility] Lymphocytes Abs 2.6 0.9 - 3.2 x10(3)/[facility] LABORATORY Monocyte % 9.5 % [facility] Monocyte Abs 0.8 0.3 - 0.9 x10(3)/[facility] LABORATORY Eos % 3.6 % [facility] Eosinophils Abs 0.3 0.0 - 0.4 x10(3)/[facility] LABORATORY Basophil % 0.5 % [facility] Baso Absolute 0.0 0.0 - 0.1 x10(3)/[facility] LABORATORY [...] - 0.04 x10(3)/[facility] LABORATORY Blood 09/08/2023 2:22 AM EDT 09/08/2023 2:37 AM EDT Narrative Resulting Agency Comment Spec In Lab Eufemia Copeland MD HEMATOLOGY ORDERAB LES [facility] [place] [address] * (ABNORMAL) Hemogram (09/08/2023 2:22 AM EDT) White Blood Cell 8.6 4.0 - 9.5 x10(3)/mc L [facility] Red Blood Cell 3.98(L) 4.00 - 5.21 x10(6)/mc L [facility] Hemoglobin 12.8 11.7 - 15.5 g/dL [facility] Hematocrit 37.4 35.7 - 45.8 % [facility] Mean Cell Volume 94.0 82.6 - 94.4 fL [facility] Mean Cell Hemoglobin 32.2(H) 27.1 - 32.0 pg [facility] Mean Cell Hemoglobin Concentration 34.2 31.7 - 35.0 g/dL [facility] Platelet 274 145 - 357 x10(3)/mc L [facility] RDW Standard Deviation 44.5 37.0 - 46.0 fL [facility] RDW coefficient of variation 12.9 11.5 - 14.1 % [facility] Mean Platelet Volume 10.4 7.6 - 12.9 fL [facility] NRBC% auto 0.0 % [facility] NRBC Absolute 0.000 0.000 - 0.000 x10(3)/mc L [facility] Blood 09/08/2023 2:22 AM EDT 09/08/2023 2:37 AM EDT Narrative Resulting Agency Comment Spec In Lab Eufemia Copeland MD HEMATOLOGY ORDERAB LES Performing Organization Address City/State/[facility] Co de Phone Number [facility] [place] [address] * (ABNORMAL) Basic Metabolic Panel (non-fasting) (09/08/2023 2:22 AM EDT) Glucose 98 65 - 199 mg/dL [facility] Comment:Diabetes: >=200 mg/d L plus symptoms Blood Urea Nitrogen 19(H) 8 - 18 mg/dL [facility] Creatinine 1.41(H) 0.70 - 1.20 mg/dL [facility] Sodium 139 135 - 145 mmol/L [facility] [...] - 107 mmol/L [facility] Carbon Dioxide 24 22 - 31 mmol/L [facility] Anion Gap 12 5 - 15 mmol/L [facility] Calcium 9.1 8.5 - 10.5 mg/dL [facility] Est Glomerular Filtration Rate 44(L) >=60 mL/min/1. 73 m?? [facility] [...] CHEMISTRY ORDERABL ES Performing Organization Address City/[facility]/ZIP Co de Phone Number [facility] [place] [address] * Magnesium (09/08/2023 2:22 AM EDT) Magnesium 0.91 0.69 - 1.07 mmol/L [facility] Blood 09/08/2023 2:22 AM EDT 09/08/2023 2:37 AM EDT Narrative Resulting Agency Comment Spec In Lab Eufemia Copeland MD CHEMISTRY ORDERABL ES [facility] [place] [address] * Differential, Automated (09/07/2023 2:56 AM EDT) Neutrophil % 52.3 % [facility] Neutrophil Absolute 3.74 1.70 - 6.10 x10(3)/mcL [facility] Lymph % 33.8 % [facility] Lymphocytes Abs 2.4 0.9 - 3.2 x10(3)/[facility] LABORATORY Monocyte % 9.4 % [facility] Monocyte Abs 0.7 0.3 - 0.9 x10(3)/[facility] LABORATORY Eos % 3.6 % [facility] Eosinophils Abs 0.3 0.0 - 0.4 x10(3)/[facility] LABORATORY Basophil % 0.6 % [facility] Baso Absolute 0.0 0.0 - 0.1 x10(3)/[facility] LABORATORY Immature Gran % 0.30 % [facility] Comment: Immature granulocytes(IG's)percentage and absolute count will include metamyelocytes, myelocytes, and promyelocytes. Blood smears from CBCs yielding IG's will be scanned manually for concordance. If this scan disagrees with the automated IG or if promyelocytes are noted, a manual differential will be performed. Immature Gran Absolute 0.02 0.00 - 0.04 x10(3)/[facility] LABORATORY Blood 09/07/2023 2:56 AM EDT 09/07/2023 3:31 AM EDT Narrative Resulting Agency Comment Spec In Lab Eufemia Copeland MD HEMATOLOGY ORDERAB LES Performing Organization Address City/State/[facility] Co de Phone Number [facility] [place] [address] * (ABNORMAL) Hemogram (09/07/2023 2:56 AM EDT) White Blood Cell 7.2 4.0 - 9.5 x10(3)/ L [facility] Red Blood Cell 4.16 4.00 - 5.21 x10(6)/ L [facility] Hemoglobin 13.1 11.7 - 15.5 g/dL [facility] Hematocrit 39.7 35.7 - 45.8 % [facility] Mean Cell Volume 95.4(H) 82.6 - 94.4 fL [facility] Mean Cell Hemoglobin 31.5 27.1 - 32.0 pg [facility] Mean Cell Hemoglobin Concentration 33.0 31.7 - 35.0 g/dL [facility] Platelet 277 145 - 357 x10(3)/mc L [facility] RDW Standard Deviation 45.4 37.0 - 46.0 fL [facility] RDW coefficient of variation 12.9 11.5 - 14.1 % [facility] Mean Platelet Volume 10.6 7.6 - 12.9 fL [facility] NRBC% auto 0.0 % [facility] NRBC Absolute 0.000 0.000 - 0.000 x10(3)/mc L [facility] Blood 09/07/2023 2:56 AM EDT 09/07/2023 3:31 AM EDT Narrative Resulting Agency Comment Spec In Lab Eufemia Copeland MD HEMATOLOGY ORDERAB LES Performing Organization Address City/State/[facility] Co de Phone Number [facility] [place] [address] * (ABNORMAL) Basic Metabolic Panel (non-fasting) (09/07/2023 2:56 AM EDT) Glucose 97 65 - 199 mg/dL [facility] Comment:Diabetes: >=200 mg/d L plus symptoms Blood Urea Nitrogen 16 8 - 18 mg/dL [facility] Creatinine 1.19 0.70 - 1.20 mg/dL [facility] Sodium 137 135 - 145 mmol/L [facility] Potassium 3.9 3.5 - 5.0 mmol/L [facility] Comment: Please note: ??Patients with WBC >100,000 may have falsely elevated Potassium levels. ??For accurate Potassium quantification in these patients send serum separator tube (gold top) for subsequent determinations. ??Contact the Clinical Chemistry Laboratory if there are any questions. Chloride 102 98 - 107 mmol/L [facility] Carbon Dioxide 25 22 - 31 mmol/L [facility] Anion Gap 10 5 - 15 mmol/L [facility] Calcium 9.4 8.5 - 10.5 mg/dL [facility] Est Glomerular Filtration Rate 54(L) >=60 mL/min/1. 73 m?? [facility] [...] CHEMISTRY ORDERABL ES Performing Organization Address City/[facility]/ZIP Co de Phone Number [facility] [place] [address] * Magnesium (09/07/2023 2:56 AM EDT) Magnesium 0.96 0.69 - 1.07 mmol/L [facility] Blood 09/07/2023 2:56 AM EDT 09/07/2023 3:31 AM EDT Narrative Resulting Agency Comment Spec In Lab Eufemia Copeland MD CHEMISTRY ORDERABL ES Performing Organization Address [facility]/ZIP Co de Phone Number [facility] [place] [address] * Differential, Automated (09/06/2023 2:44 AM EDT) Pathologist [facility] Neutrophil % 53.7 % [facility] Neutrophil Absolute 4.01 1.70 - 6.10 x10(3)/[facility] LABORATORY Lymph % 32.0 % [facility] Lymphocytes Abs 2.4 0.9 - 3.2 x10(3)/[facility] LABORATORY Monocyte % 10.0 % [facility] Monocyte Abs 0.8 0.3 - 0.9 x10(3)/[facility] LABORATORY Eos % 3.2 % [facility] Eosinophils Abs 0.2 0.0 - 0.4 x10(3)/[facility] LABORATORY Basophil % 0.7 % [facility] Baso Absolute 0.0 0.0 - 0.1 x10(3)/[facility] Immature Gran % 0.40 % [facility] Comment: Immature granulocytes(IG's)percentage and absolute count will include metamyelocytes, myelocytes, and promyelocytes. Blood smears from CBCs yielding IG's will be scanned manually for concordance. If this scan disagrees with the automated IG or if promyelocytes are noted, a manual differential will be performed. Immature Gran Absolute 0.03 0.00 - 0.04 x10(3)/[facility] Blood 09/06/2023 2:44 AM EDT 09/06/2023 2:58 AM EDT Narrative Resulting Agency Comment Spec In Lab Eufemia Copeland MD HEMATOLOGY ORDERAB LES [facility] [place] [address] * Hemogram (09/06/2023 2:44 AM EDT) [facility] White Blood Cell 7.5 4.0 - 9.5 x10(3)/[facility] LABORATORY Red Blood Cell 4.26 4.00 - 5.21 x10(6)/[facility] LABORATORY Hemoglobin 13.6 11.7 - 15.5 g/dL [facility] Hematocrit 40.2 35.7 - 45.8 % [facility] Mean Cell Volume 94.4 82.6 - 94.4 [facility] LABORATORY Mean Cell Hemoglobin 31.9 27.1 - 32.0 pg [facility] Mean Cell Hemoglobin Concentration 33.8 31.7 - 35.0 g/dL [facility] Platelet 274 145 - 357 x10(3)/[facility] LABORATORY RDW Standard Deviation 44.3 37.0 - 46.0 [facility] LABORATORY RDW coefficient of variation 12.9 11.5 - 14.1 % [facility] Mean Platelet Volume 10.2 7.6 - 12.9 [facility] LABORATORY NRBC% auto 0.0 % [facility] NRBC Absolute 0.000 0.000 - 0.000 x10(3)/[facility] LABORATORY Blood 09/06/2023 2:44 AM EDT 09/06/2023 2:58 AM EDT Narrative Resulting Agency Comment Spec In Lab Eufemia Copeland MD HEMATOLOGY ORDERAB LES [facility] [place] [address] * Basic Metabolic Panel (non-fasting) (09/06/2023 2:44 AM EDT) Glucose 100 65 - 199 mg/dL [facility] Comment:Diabetes: >=200 mg/d L plus symptoms Blood Urea Nitrogen 16 8 - 18 mg/dL [facility] Creatinine 1.05 0.70 - 1.20 mg/dL [facility] [...] - 107 mmol/L [facility] Carbon Dioxide 25 22 - 31 mmol/L [facility] Anion Gap 10 5 - 15 mmol/L [facility] Calcium 9.5 8.5 - 10.5 mg/dL [facility] Est Glomerular Filtration Rate 63 >=60 mL/min/1. 73 m?? [facility] [...] CHEMISTRY ORDERABL ES Performing Organization Address [facility]/ZIP Co de Phone Number [facility] [place] [address] * Magnesium (09/06/2023 2:44 AM EDT) Magnesium 0.95 0.69 - 1.07 mmol/L [facility] Blood 09/06/2023 2:44 AM EDT 09/06/2023 2:58 AM EDT Narrative Resulting Agency Comment Spec In Lab Eufemia Copeland MD CHEMISTRY ORDERABL ES Performing Organization Address City/[facility]/ZIP Co de Phone Number [facility] [place] [address] * CT Abdomen & Pelvis w Contrast (09/05/2023 4:25 PM EDT) WORKSTATION ID [id number] RAD Anatomical Region Laterality Modality Abdomen, Pelvis [...] who have questions please contact the health hospice spiritual care coordinator that requested your imaging [...] patients who have questions please contactthe health hospice spiritual care coordinator that requested your imaging first. Samantha Broussard MD IMG CT ORDERABLES * Differential, Automated (09/05/2023 1:58 AM EDT) Neutrophil % 54.5 % [facility] Neutrophil Absolute 4.32 1.70 - 6.10 x10(3)/[facility] LABORATORY Lymph % 30.5 % [facility] Lymphocytes Abs 2.4 0.9 - 3.2 x10(3)/[facility] LABORATORY Monocyte % 11.4 % [facility] Monocyte Abs 0.9 0.3 - 0.9 x10(3)/[facility] LABORATORY Eos % 2.8 % [facility] Eosinophils Abs 0.2 0.0 - 0.4 x10(3)/[facility] LABORATORY Basophil % 0.5 % [facility] Baso Absolute 0.0 0.0 - 0.1 x10(3)/[facility] LABORATORY Immature Gran % 0.30 % [facility] Comment: Immature granulocytes(IG's)percentage and absolute count will include metamyelocytes, myelocytes, and promyelocytes. Blood smears from CBCs yielding IG's will be scanned manually for concordance. If this scan disagrees with the automated IG or if promyelocytes are noted, a manual differential will be performed. Immature Gran Absolute 0.02 0.00 - 0.04 x10(3)/[facility] LABORATORY Blood 09/05/2023 1:58 AM EDT 09/05/2023 2:13 AM EDT Narrative Resulting Agency Comment Spec In Lab Eufemia Copeland MD HEMATOLOGY ORDERAB LES Performing Organization Address City/State/[facility] Co de Phone Number [facility] [place] [address] * Hemogram (09/05/2023 1:58 AM EDT) White Blood Cell 7.9 4.0 - 9.5 x10(3)/[facility] LABORATORY Red Blood Cell 4.38 4.00 - 5.21 x10(6)/[facility] LABORATORY Hemoglobin 13.7 11.7 - 15.5 g/dL [facility] Hematocrit 40.5 35.7 - 45.8 % [facility] Mean Cell Volume 92.5 82.6 - 94.4 fL [facility] Mean Cell Hemoglobin 31.3 27.1 - 32.0 pg [facility] Mean Cell Hemoglobin Concentration 33.8 31.7 - 35.0 g/dL [facility] Platelet 282 145 - 357 x10(3)/[facility] LABORATORY RDW Standard Deviation 44.0 37.0 - 46.0 fL [facility] RDW coefficient of variation 13.0 11.5 - 14.1 % [facility] Mean Platelet Volume 10.4 7.6 - 12.9 [facility] LABORATORY NRBC% auto 0.0 % [facility] NRBC Absolute 0.000 0.000 - 0.000 x10(3)/mcL [facility] Blood 09/05/2023 1:58 AM EDT 09/05/2023 2:13 AM EDT Narrative Resulting Agency Comment Spec In Lab Eufemia Copeland MD HEMATOLOGY ORDERAB LES [facility] [place] [address] * (ABNORMAL) Basic Metabolic Panel (non-fasting) (09/05/2023 1:58 AM EDT) Glucose 103 65 - 199 mg/dL [facility] Comment:Diabetes: >=200 mg/d L plus symptoms Blood Urea Nitrogen 24(H) 8 - 18 mg/dL [facility] Creatinine 1.10 0.70 - 1.20 mg/dL [facility] Sodium 136 135 - 145 mmol/L [facility] [...] - 107 mmol/L [facility] Carbon Dioxide 25 22 - 31 mmol/L [facility] Anion Gap 12 5 - 15 mmol/L [facility] Calcium 9.5 8.5 - 10.5 mg/dL [facility] Est Glomerular Filtration Rate 60 >=60 mL/min/1. 73 m?? [facility] [...] CHEMISTRY ORDERABL ES Performing Organization Address [facility] Co de Phone Number [facility] [place] [address] * Magnesium (09/05/2023 1:58 AM EDT) Magnesium 1.02 0.69 - 1.07 mmol/L [facility] Blood 09/05/2023 1:58 AM EDT 09/05/2023 2:13 AM EDT Narrative Resulting Agency Comment Spec In Lab Eufemia Copeland MD CHEMISTRY ORDERABL ES Performing Organization Address [facility] Co de Phone Number [facility] [place] [address] * Miscellaneous Lab request (09/05/2023 1:58 AM EDT) Label Request received in lab. [facility] Blood 09/05/2023 1:58 AM EDT 09/05/2023 2:14 AM EDT Narrative Resulting Agency Comment Spec In Lab Samantha Broussard MD LAB SEND OUT ORDERAB LES Performing Organization Address [facility]/ZIP Co de Phone Number [facility] [place] [address] * IgG 4 (09/05/2023 1:58 AM EDT) IgG 4 47.7 3.9 - 86.4 mg/dL [facility] Blood 09/05/2023 1:58 AM EDT 09/05/2023 2:13 AM EDT Narrative Resulting Agency Comment Spec In Lab Samantha Broussard MD IMMUNOLOGY ORDERABLE S [facility] [place] [address] * (ABNORMAL) Basic Metabolic Panel (non-fasting) (09/04/2023 2:11 PM EDT) Glucose 104 65 - 199 mg/dL [facility] Comment:Diabetes: >=200 mg/d L plus symptoms Blood Urea Nitrogen 24(H) 8 - 18 mg/dL [facility] Creatinine 1.34(H) 0.70 - 1.20 mg/dL [facility] Sodium 136 135 - 145 mmol/L [facility] Potassium 3.7 3.5 - 5.0 mmol/L [facility] Comment: Please note: ??Patients with WBC >100,000 may have falsely elevated Potassium levels. ??For accurate Potassium quantification in these patients send serum separator tube (gold top) for subsequent determinations. ??Contact the Clinical Chemistry Laboratory if there are any questions. Chloride 96(L) 98 - 107 mmol/L [facility] Carbon Dioxide 25 22 - 31 mmol/L [facility] Anion Gap 15 5 - 15 mmol/L [facility] Calcium 9.6 8.5 - 10.5 mg/dL [facility] Est Glomerular Filtration Rate 47(L) >=60 mL/min/1. 73 m?? [facility] [...] MD CHEMISTRY ORDERABLES Performing Organization Address [facility] Co de Phone Number [facility] [place] [address] * (ABNORMAL) Potassium (09/04/2023 9:13 AM EDT) Potassium 3.2(L) 3.5 - 5.0 mmol/L [facility] [...] Broussard MD CHEMISTRY ORDERABLES Performing Organization Address [facility] Co de Phone Number [facility] [place] [address] * (ABNORMAL) Potassium (09/04/2023 4:25 AM EDT) Potassium 2.9(Criti edy) 3.5 - 5.0 mmol/L [facility] Comment: Called by: staci, [...] In Lab Lorna Herr MD CHEMISTRY ORDERABLES [facility] [place] [address] * Differential, Automated (09/04/2023 3:03 AM EDT) Neutrophil % 59.0 % [facility] Neutrophil Absolute 4.85 1.70 - 6.10 x10(3)/[facility] LABORATORY Lymph % 26.3 % [facility] Lymphocytes Abs 2.2 0.9 - 3.2 x10(3)/[facility] LABORATORY Monocyte % 10.4 % [facility] Monocyte Abs 0.8 0.3 - 0.9 x10(3)/[facility] LABORATORY Eos % 3.4 % [facility] Eosinophils Abs 0.3 0.0 - 0.4 x10(3)/[facility] LABORATORY Basophil % 0.5 % [facility] Baso Absolute 0.0 0.0 - 0.1 x10(3)/[facility] LABORATORY [...] - 0.04 x10(3)/[facility] Blood 09/04/2023 3:03 AM EDT 09/04/2023 3:21 AM EDT Narrative Resulting Agency Comment Spec In Lab Eufemia Copeland MD HEMATOLOGY ORDERAB LES [facility] [place] [address] * (ABNORMAL) Hemogram (09/04/2023 3:03 AM EDT) White Blood Cell 8.2 4.0 - 9.5 x10(3)/mc L [facility] Red Blood Cell 4.55 4.00 - 5.21 x10(6)/mc L [facility] Hemoglobin 14.8 11.7 - 15.5 g/dL [facility] Hematocrit 41.8 35.7 - 45.8 % [facility] Mean Cell Volume 91.9 82.6 - 94.4 fL [facility] Mean Cell Hemoglobin 32.5(H) 27.1 - 32.0 pg [facility] Mean Cell Hemoglobin Concentration 35.4(H) 31.7 - 35.0 g/dL [facility] Platelet 306 145 - 357 x10(3)/mc L [facility] RDW Standard Deviation 42.8 37.0 - 46.0 fL [facility] RDW coefficient of variation 12.8 11.5 - 14.1 % [facility] Mean Platelet Volume 10.2 7.6 - 12.9 fL [facility] NRBC% auto 0.0 % [facility] NRBC Absolute 0.000 0.000 - 0.000 x10(3)/mc L [facility] Blood 09/04/2023 3:03 AM EDT 09/04/2023 3:21 AM EDT Narrative Resulting Agency Comment Spec In Lab Eufemia Copeland MD HEMATOLOGY ORDERAB LES [facility] [place] [address] * (ABNORMAL) Basic Metabolic Panel (non-fasting) (09/04/2023 3:03 AM EDT) Glucose 117 65 - 199 mg/dL [facility] Comment:Diabetes: >=200 mg/d L plus symptoms Blood Urea Nitrogen 28(H) 8 - 18 mg/dL [facility] Creatinine 1.32(H) 0.70 - 1.20 mg/dL [facility] Sodium 134(L) 135 - 145 mmol/L [facility] Potassium Not Perf 3.5 - 5.0 [facility] Comment: Unable to [...] questions. Chloride 92(L) 98 - 107 mmol/L [facility] Carbon Dioxide 26 22 - 31 mmol/L [facility] Anion Gap 16(H) 5 - 15 mmol/L [facility] Calcium 10.0 8.5 - 10.5 mg/dL [facility] Est Glomerular Filtration Rate 48(L) >=60 mL/min/1. 73 m?? [facility] [...] CHEMISTRY ORDERABL ES Performing Organization Address [facility] Co de Phone Number [facility] [place] [address] * Magnesium (09/04/2023 3:03 AM EDT) Magnesium 1.07 0.69 - 1.07 mmol/L [facility] Blood 09/04/2023 3:03 AM EDT 09/04/2023 3:21 AM EDT Narrative Resulting Agency Comment Spec In Lab Eufemia Copeland MD CHEMISTRY ORDERABL ES Performing Organization Address [facility] de Phone Number [facility] [place] [address] * EKG 12 Lead (09/03/2023 6:02 AM EDT) Ventricular rate 65 BPM MUSE SYSTEM Atrial Rate 65 BPM MUSE SYSTEM P-R Interval 196 ms MUSE SYSTEM QRS Duration 94 ms MUSE SYSTEM Q-T Interval 580 ms MUSE SYSTEM QTC Calculated (Bezet) 603 ms MUSE SYSTEM Calculated P [place] 39 degrees MUSE SYSTEM Calculated R [place] 28 degrees MUSE SYSTEM Calculated T [place] 35 degrees MUSE SYSTEM INTERPRETATION Sinus rhythm with Premature atrial complexes Possible Left atrial enlargement Nonspecific ST and T wave abnormality Abnormal ECG When compared with ECG of 03-SEP-2023 03:05, Nonspecific T wave abnormality no longer evident in Inferior leads Nonspecific T wave abnormality, improved in Anterolateral leads QT has lengthened Confirmed by fellow MD Hansa, Sindhu ([id number]) on 09/06/2023 12:52:08 AM Confirmed by MD Lucia Jose ([id number]) on 09/06/2023 9:05:05 PM MUSE SYSTEM 09/03/2023 6:02 AM EDT 09/06/2023 9:05 PM EDT Archie Mcmanus MD ECG ORDERABLES Performing Organization Address [facility] Co de Phone Number MUSE SYSTEM * EKG 12 Lead (09/03/2023 3:05 AM EDT) Ventricular rate 62 BPM MUSE SYSTEM Atrial Rate 62 BPM MUSE SYSTEM P-R Interval 174 ms MUSE SYSTEM QRS Duration 90 ms MUSE SYSTEM Q-T Interval 486 ms MUSE SYSTEM QTC Calculated (Bezet) 493 ms MUSE SYSTEM Calculated P [place] 20 degrees MUSE SYSTEM Calculated R [place] 20 degrees MUSE SYSTEM Calculated T [place] -7 degrees MUSE SYSTEM INTERPRETATION Sinus rhythm with Premature atrial complexes Nonspecific ST and T wave abnormality Abnormal ECG When compared with ECG of 02-SEP-2023 14:42, Premature atrial complexes are now Present QT has lengthened Confirmed by fellow MD Hansa, Sindhu ([id number]) on 09/06/2023 12:50:25 AM Confirmed by MD Khari, Mikey ([id number]) on 09/06/2023 9:04:55 PM MUSE SYSTEM 09/03/2023 3:05 AM EDT 09/06/2023 9:04 PM EDT Archie Mcmanus MD ECG ORDERABLES MUSE SYSTEM * Differential, Automated (09/03/2023 2:39 AM EDT) Pathologist [facility] Neutrophil % 61.1 % [facility] Neutrophil Absolute 5.22 1.70 - 6.10 x10(3)/[facility] Lymph % 24.2 % [facility] Lymphocytes Abs 2.1 0.9 - 3.2 x10(3)/[facility] Monocyte % 10.3 % [facility] Monocyte Abs 0.9 0.3 - 0.9 x10(3)/[facility] Eos % 3.6 % [facility] Eosinophils Abs 0.3 0.0 - 0.4 x10(3)/[facility] Basophil % 0.6 % [facility] Baso Absolute 0.0 0.0 - 0.1 x10(3)/[facility] Immature Gran % 0.20 % [facility] Comment: Immature granulocytes(IG's)percentage and absolute count will include metamyelocytes, myelocytes, and promyelocytes. Blood smears from CBCs yielding IG's will be scanned manually for concordance. If this scan disagrees with the automated IG or if promyelocytes are noted, a manual differential will be performed. Immature Gran Absolute 0.02 0.00 - 0.04 x10(3)/[facility] Blood 09/03/2023 2:39 AM EDT 09/03/2023 2:46 AM EDT Narrative Resulting Agency Comment Spec In Lab Eufemia Copeland MD HEMATOLOGY ORDERAB LES [facility] [place] [address] * Hemogram (09/03/2023 2:39 AM EDT) White Blood Cell 8.6 4.0 - 9.5 x10(3)/[facility] Red Blood Cell 4.83 4.00 - 5.21 x10(6)/[facility] Hemoglobin 15.2 11.7 - 15.5 g/dL [facility] Hematocrit 45.4 35.7 - 45.8 % [facility] Mean Cell Volume 94.0 82.6 - 94.4 fL [facility] Mean Cell Hemoglobin 31.5 27.1 - 32.0 pg [facility] Mean Cell Hemoglobin Concentration 33.5 31.7 - 35.0 g/dL [facility] Platelet 295 145 - 357 x10(3)/[facility] RDW Standard Deviation 44.1 37.0 - 46.0 fL [facility] RDW coefficient of variation 12.8 11.5 - 14.1 % [facility] Mean Platelet Volume 10.3 7.6 - 12.9 fL [facility] NRBC% auto 0.0 % [facility] NRBC Absolute 0.000 0.000 - 0.000 x10(3)/mcL [facility] Blood 09/03/2023 2:39 AM EDT 09/03/2023 2:46 AM EDT Narrative Resulting Agency Comment Spec In Lab Eufemia Copeland MD HEMATOLOGY ORDERAB LES [facility] [place] [address] * (ABNORMAL) Basic Metabolic Panel (non-fasting) (09/03/2023 2:39 AM EDT) Glucose 108 65 - 199 mg/dL [facility] Comment:Diabetes: >=200 mg/d L plus symptoms Blood Urea Nitrogen 23(H) 8 - 18 mg/dL [facility] Creatinine 1.53(H) 0.70 - 1.20 mg/dL [facility] [...] questions. Chloride 93(L) 98 - 107 mmol/L [facility] Carbon Dioxide 30 22 - 31 mmol/L [facility] Anion Gap 15 5 - 15 mmol/L [facility] Calcium 10.4 8.5 - 10.5 mg/dL [facility] Est Glomerular Filtration Rate 40(L) >=60 mL/min/1. 73 m?? [facility] [...] CHEMISTRY ORDERABL ES Performing Organization Address City/[facility] Co de Phone Number [facility] [place] [address] * Magnesium (09/03/2023 2:39 AM EDT) Magnesium 0.98 0.69 - 1.07 mmol/L [facility] Blood 09/03/2023 2:39 AM EDT 09/03/2023 2:46 AM EDT Narrative Resulting Agency Comment Spec In Lab Eufemia Copeland MD CHEMISTRY ORDERABL ES Performing Organization Address [facility] Co de Phone Number [facility] [place] [address] * (ABNORMAL) Protein Electrophoresis, serum (09/03/2023 2:39 AM EDT) Total Prot Electrophoresis 7.9 6.1 - 8.0 g/dL [facility] Albumin Electrophoresis 4.87 3.20 - 5.20 g/dL [facility] Alpha 1 Globulin 0.21 0.10 - 0.30 g/dL [facility] Alpha 2 Globulin 1.03(H) 0.40 - 0.90 g/dL [facility] Beta Globulin 0.90 0.50 - 1.00 g/dL [facility] Gamma Globulin 0.88 0.50 - 1.30 g/dL [facility] M1 Band None Detected None Detected [facility] Blood 09/03/2023 2:39 AM EDT 09/03/2023 2:46 AM EDT Narrative Resulting Agency Comment Spec In Lab Lorna Herr MD CHEMISTRY ORDERABLES Performing Organization Address [facility]/ZIP Co de Phone Number [facility] [place] [address] * Protein Electrophoresis, urine, random (09/02/2023 9:30 PM EDT) Protein, Urine <6 0 - 12 mg/dL [facility] U Albumin See Note [facility] Comment:No protein visible v ia electrophoresis due to a low urine total protein. Globulin, Urine Not Perf [facility] Comment:No protein visible v ia electrophoresis due to a low urine total protein. M1 Band, Urine Not Perf [facility] Comment:No protein visible v ia electrophoresis due to a low urine total protein. UPEP Comments See Note [facility] Comment: Total Protein concentration too low to fractionate using current electrophoretic technique. No protein visible via electrophoresis due to a low urine total protein. Urine 09/02/2023 9:30 PM EDT 09/02/2023 9:35 PM EDT Narrative Resulting Agency Comment Spec In Lab Lorna Herr MD URINE ORDERABLES Performing Organization Address [facility] Co de Phone Number [facility] [place] [address] * (ABNORMAL) Troponin (09/02/2023 8:16 PM EDT) Troponin-T, High Sensitivity 24(H) <=14 ng/L [facility] Comment: [...] found in the [facility] Laboratory Test Catalog Troponin - [facility] Laboratory Test Catalog Reference: Fourth Kennan Definition of Myocardial Infarction. Journal of the [place] [employer] 2018;72:4277-7718 Blood 09/02/2023 8:16 PM EDT 09/02/2023 8:25 PM EDT Narrative Resulting Agency Comment Spec In Lab Lorna Herr MD CHEMISTRY ORDERABLES Performing Organization Address City/[facility]/ZIP Co de Phone Number [facility] [place] [address] * (ABNORMAL) pro-Brain Natriuretic Peptide (09/02/2023 5:05 PM EDT) NT-proBNP 985(H) <=124 pg/mL [facility] Blood 09/02/2023 5:05 PM EDT 09/02/2023 5:17 PM EDT Narrative Resulting Agency Comment Spec In Lab Lorna Herr MD CHEMISTRY ORDERABLES Performing Organization Address City/[facility]/ZIP Co de Phone Number [facility] [place] [address] * (ABNORMAL) Troponin (09/02/2023 5:05 PM EDT) Troponin-T, High Sensitivity 24(H) <=14 ng/L [facility] Comment: [...] found in the [facility] Laboratory Test Catalog Troponin - [facility] Laboratory Test Catalog Reference: Fourth Kennan Definition of Myocardial Infarction. Journal of the [place] [employer] 2018;72:0827-1637 Blood 09/02/2023 5:05 PM EDT 09/02/2023 5:17 PM EDT Narrative Resulting Agency Comment Spec In Lab Lorna Herr MD CHEMISTRY ORDERABLES [facility] [place] [address] * EKG 12 Lead (09/02/2023 2:42 PM EDT) Ventricular rate 60 BPM MUSE SYSTEM Atrial Rate 60 BPM MUSE SYSTEM P-R Interval 178 ms MUSE SYSTEM QRS Duration 88 ms MUSE SYSTEM Q-T Interval 434 ms MUSE SYSTEM QTC Calculated (Bezet) 434 ms MUSE SYSTEM Calculated P [place] 42 degrees MUSE SYSTEM Calculated R [place] 44 degrees MUSE SYSTEM INTERPRETATION Normal sinus rhythm Possible Lateral infarct , age undetermined Difuse repolarization abnormalities Abnormal ECG When compared with ECG of 02-SEP-2023 14:09, Criteria for Septal infarct are no longer Present T wave inversion less evident in Inferior leads Nonspecific T wave abnormality has replaced inverted T waves in Anterior leads Confirmed by MD Khari, Mikey ([id number]) on 09/03/2023 12:21:02 PM MUSE SYSTEM 09/02/2023 2:42 PM EDT 09/03/2023 12:21 PM EDT Archie Mcmanus MD ECG ORDERABLES MUSE SYSTEM * (ABNORMAL) Troponin (09/02/2023 9:05 AM EDT) Troponin-T, High Sensitivity 22(H) <=14 ng/L [facility] Comment: [...] found in the [facility] Laboratory Test Catalog Troponin - [facility] Laboratory Test Catalog Reference: Fourth Kennan Definition of Myocardial Infarction. Journal of the [place] [employer] 2018;72:1361-3981 Blood 09/02/2023 9:05 AM EDT 09/02/2023 9:28 AM EDT Narrative Resulting Agency Comment Spec In Lab Archie Mcmanus MD CHEMISTRY ORDERABLES [facility] [place] [address] * Differential, Automated (09/02/2023 3:18 AM EDT) Neutrophil % 58.4 % [facility] Neutrophil Absolute 4.40 1.70 - 6.10 x10(3)/[facility] Lymph % 28.2 % [facility] Lymphocytes Abs 2.1 0.9 - 3.2 x10(3)/[facility] Monocyte % 8.3 % [facility] Monocyte Abs 0.6 0.3 - 0.9 x10(3)/[facility] Eos % 4.2 % [facility] Eosinophils Abs 0.3 0.0 - 0.4 x10(3)/[facility] Basophil % 0.5 % [facility] Baso Absolute 0.0 0.0 - 0.1 x10(3)/[facility] [...] Immature Gran Absolute 0.03 0.00 - 0.04 x10(3)/[facility] Blood 09/02/2023 3:18 AM EDT 09/02/2023 3:55 AM EDT Narrative Resulting Agency Comment Spec In Lab Eufemia Copeland MD HEMATOLOGY ORDERAB LES [facility] [place] [address] * (ABNORMAL) Hemogram (09/02/2023 3:18 AM EDT) [facility] White Blood Cell 7.6 4.0 - 9.5 x10(3)/ L [facility] Red Blood Cell 4.33 4.00 - 5.21 x10(6)/[facility] Hemoglobin 13.6 11.7 - 15.5 g/dL [facility] Hematocrit 41.0 35.7 - 45.8 % [facility] Mean Cell Volume 94.7(H) 82.6 - 94.4 fL [facility] Mean Cell Hemoglobin 31.4 27.1 - 32.0 pg [facility] Mean Cell Hemoglobin Concentration 33.2 31.7 - 35.0 g/dL [facility] Platelet 275 145 - 357 x10(3)/mc L [facility] RDW Standard Deviation 45.7 37.0 - 46.0 fL [facility] RDW coefficient of variation 13.2 11.5 - 14.1 % [facility] Mean Platelet Volume 10.7 7.6 - 12.9 fL [facility] NRBC% auto 0.0 % [facility] NRBC Absolute 0.000 0.000 - 0.000 x10(3)/mc L [facility] Blood 09/02/2023 3:18 AM EDT 09/02/2023 3:55 AM EDT Narrative Resulting Agency Comment Spec In Lab Eufemia Copeland MD HEMATOLOGY ORDERAB LES Performing Organization Address City/State/[facility] Co de Phone Number [facility] [place] [address] * (ABNORMAL) Troponin (09/02/2023 3:18 AM EDT) Troponin-T, High Sensitivity 23(H) <=14 ng/L [facility] Comment: [...] found in the [facility] Laboratory Test Catalog Troponin - [facility] Laboratory Test Catalog Reference: Fourth Kennan Definition of Myocardial Infarction. Journal of the [place] [employer] 2018;72:9730-1702 Blood 09/02/2023 3:18 AM EDT 09/02/2023 3:55 AM EDT Narrative Resulting Agency Comment Spec In Lab Archie Mcmanus MD CHEMISTRY ORDERABLES [facility] [place] [address] * (ABNORMAL) Basic Metabolic Panel (non-fasting) (09/02/2023 3:18 AM EDT) Glucose 121 65 - 199 mg/dL [facility] Comment:Diabetes: >=200 mg/d L plus symptoms Blood Urea Nitrogen 17 8 - 18 mg/dL [facility] Creatinine 1.20 0.70 - 1.20 mg/dL [facility] Sodium 140 135 - 145 mmol/L [facility] Potassium 3.7 3.5 - 5.0 mmol/L [facility] Comment: Please note: ??Patients with WBC >100,000 may have falsely elevated Potassium levels. ??For accurate Potassium quantification in these patients send serum separator tube (gold top) for subsequent determinations. ??Contact the Clinical Chemistry Laboratory if there are any questions. Chloride 101 98 - 107 mmol/L [facility] Carbon Dioxide 25 22 - 31 mmol/L [facility] Anion Gap 14 5 - 15 mmol/L [facility] Calcium 9.5 8.5 - 10.5 mg/dL [facility] Est Glomerular Filtration Rate 54(L) >=60 mL/min/1. 73 m?? [facility] [...] CHEMISTRY ORDERABL ES Performing Organization Address City/[facility]/ZIP Co de Phone Number [facility] [place] [address] * Magnesium (09/02/2023 3:18 AM EDT) Magnesium 0.91 0.69 - 1.07 mmol/L [facility] Blood 09/02/2023 3:18 AM EDT 09/02/2023 3:55 AM EDT Narrative Resulting Agency Comment Spec In Lab Eufemia Copeland MD CHEMISTRY ORDERABL ES [facility] [place] [address] * Differential, Automated (09/01/2023 3:08 AM EDT) Neutrophil % 57.1 % [facility] Neutrophil Absolute 4.00 1.70 - 6.10 x10(3)/mcL [facility] Lymph % 26.9 % [facility] Lymphocytes Abs 1.9 0.9 - 3.2 x10(3)/[facility] Monocyte % 11.4 % [facility] Monocyte Abs 0.8 0.3 - 0.9 x10(3)/[facility] Eos % 4.1 % [facility] Eosinophils Abs 0.3 0.0 - 0.4 x10(3)/[facility] Basophil % 0.4 % [facility] Baso Absolute 0.0 0.0 - 0.1 x10(3)/[facility] Immature Gran % 0.10 % [facility] Comment: Immature granulocytes(IG's)percentage and absolute count will include metamyelocytes, myelocytes, and promyelocytes. Blood smears from CBCs yielding IG's will be scanned manually for concordance. If this scan disagrees with the automated IG or if promyelocytes are noted, a manual differential will be performed. Immature Gran Absolute 0.01 0.00 - 0.04 x10(3)/[facility] Blood 09/01/2023 3:08 AM EDT 09/01/2023 3:18 AM EDT Narrative Resulting Agency Comment Spec In Lab Eufemia Copeland MD HEMATOLOGY ORDERAB LES [facility] [place] [address] * (ABNORMAL) Hemogram (09/01/2023 3:08 AM EDT) White Blood Cell 7.0 4.0 - 9.5 x10(3)/mc L [facility] Red Blood Cell 4.18 4.00 - 5.21 x10(6)/mc L [facility] Hemoglobin 13.6 11.7 - 15.5 g/dL [facility] Hematocrit 39.8 35.7 - 45.8 % [facility] Mean Cell Volume 95.2(H) 82.6 - 94.4 fL [facility] Mean Cell Hemoglobin 32.5(H) 27.1 - 32.0 pg [facility] Mean Cell Hemoglobin Concentration 34.2 31.7 - 35.0 g/dL [facility] Platelet 232 145 - 357 x10(3)/mc L [facility] RDW Standard Deviation 45.0 37.0 - 46.0 fL [facility] RDW coefficient of variation 13.1 11.5 - 14.1 % [facility] Mean Platelet Volume 10.2 7.6 - 12.9 fL [facility] NRBC% auto 0.0 % [facility] NRBC Absolute 0.000 0.000 - 0.000 x10(3)/mc L [facility] Blood 09/01/2023 3:08 AM EDT 09/01/2023 3:18 AM EDT Narrative Resulting Agency Comment Spec In Lab Eufemia Copeland MD HEMATOLOGY ORDERAB LES [facility] [place] [address] * (ABNORMAL) Basic Metabolic Panel (non-fasting) (09/01/2023 3:08 AM EDT) Glucose 110 65 - 199 mg/dL [facility] Comment:Diabetes: >=200 mg/d L plus symptoms Blood Urea Nitrogen 20(H) 8 - 18 mg/dL [facility] Creatinine 1.22(H) 0.70 - 1.20 mg/dL [facility] [...] - 107 mmol/L [facility] Carbon Dioxide 23 22 - 31 mmol/L [facility] Anion Gap 14 5 - 15 mmol/L [facility] Calcium 9.7 8.5 - 10.5 mg/dL [facility] Est Glomerular Filtration Rate 53(L) >=60 mL/min/1. 73 m?? [facility] [...] CHEMISTRY ORDERABL ES Performing Organization Address [facility] Co de Phone Number [facility] [place] [address] * Magnesium (09/01/2023 3:08 AM EDT) Magnesium 0.98 0.69 - 1.07 mmol/L [facility] Blood 09/01/2023 3:08 AM EDT 09/01/2023 3:18 AM EDT Narrative Resulting Agency Comment Spec In Lab Eufemia Copeland MD CHEMISTRY ORDERABL ES Performing Organization Address [facility]/ZIP Co de Phone Number [facility] [place] [address] * Magnesium (08/31/2023 5:03 PM EDT) Magnesium 0.95 0.69 - 1.07 mmol/L [facility] Blood 08/31/2023 5:03 PM EDT 08/31/2023 5:08 PM EDT Narrative Resulting Agency Comment Spec In Lab Eufemia Copeland MD CHEMISTRY ORDERABL ES Performing Organization Address [facility]/ZIP Co de Phone Number [facility] [place] [address] * Phosphorus (08/31/2023 5:03 PM EDT) Pathologist [facility] Phosphorus 3.8 2.5 - 4.5 mg/dL [facility] Blood 08/31/2023 5:03 PM EDT 08/31/2023 5:08 PM EDT Narrative Resulting Agency Comment Spec In Lab Eufemia Copeland MD CHEMISTRY ORDERABL ES Performing Organization Address [facility] Co de Phone Number [facility] [place] [address] * (ABNORMAL) Basic Metabolic Panel (non-fasting) (08/31/2023 5:03 PM EDT) [facility] Glucose 111 65 - 199 mg/dL [facility] Comment:Diabetes: >=200 mg/d L plus symptoms Blood Urea Nitrogen 17 8 - 18 mg/dL [facility] Creatinine 1.14 0.70 - 1.20 mg/dL [facility] Sodium 138 135 - 145 mmol/L [facility] Potassium 3.8 3.5 - 5.0 mmol/L [facility] Comment: Please note: ??Patients with WBC >100,000 may have falsely elevated Potassium levels. ??For accurate Potassium quantification in these patients send serum separator tube (gold top) for subsequent determinations. ??Contact the Clinical Chemistry Laboratory if there are any questions. Chloride 101 98 - 107 mmol/L [facility] Carbon Dioxide 23 22 - 31 mmol/L [facility] Anion Gap 14 5 - 15 mmol/L [facility] Calcium 9.6 8.5 - 10.5 mg/dL [facility] Est Glomerular Filtration Rate 57(L) >=60 mL/min/1. 73 m?? [facility] [...] Lab Eufemia Copeland MD CHEMISTRY ORDERABL ES [facility] [place] [address] * Differential, Automated (08/31/2023 2:18 AM EDT) Neutrophil % 58.1 % [facility] Neutrophil Absolute 4.52 1.70 - 6.10 x10(3)/[facility] Lymph % 25.8 % [facility] Lymphocytes Abs 2.0 0.9 - 3.2 x10(3)/[facility] Monocyte % 11.0 % [facility] Monocyte Abs 0.9 0.3 - 0.9 x10(3)/[facility] Eos % 4.0 % [facility] Eosinophils Abs 0.3 0.0 - 0.4 x10(3)/[facility] Basophil % 0.6 % [facility] Baso Absolute 0.0 0.0 - 0.1 x10(3)/[facility] LABORATORY Immature Gran % 0.50 % [facility] Comment: Immature granulocytes(IG's)percentage and absolute count will include metamyelocytes, myelocytes, and promyelocytes. Blood smears from CBCs yielding IG's will be scanned manually for concordance. If this scan disagrees with the automated IG or if promyelocytes are noted, a manual differential will be performed. Immature Gran Absolute 0.04 0.00 - 0.04 x10(3)/[facility] LABORATORY Blood 08/31/2023 2:18 AM EDT 08/31/2023 2:23 AM EDT Narrative Resulting Agency Comment Spec In Lab Archie Mcmanus MD HEMATOLOGY ORDERABLE S Performing Organization Address City/State/[facility] Co de Phone Number [facility] [place] [address] * (ABNORMAL) Hemogram (08/31/2023 2:18 AM EDT) White Blood Cell 7.8 4.0 - 9.5 x10(3)/mc L [facility] Red Blood Cell 3.97(L) 4.00 - 5.21 x10(6)/mc L [facility] Hemoglobin 12.6 11.7 - 15.5 g/dL [facility] Hematocrit 38.5 35.7 - 45.8 % [facility] Mean Cell Volume 97.0(H) 82.6 - 94.4 fL [facility] Mean Cell Hemoglobin 31.7 27.1 - 32.0 pg [facility] Mean Cell Hemoglobin Concentration 32.7 31.7 - 35.0 g/dL [facility] Platelet 218 145 - 357 x10(3)/mc L [facility] RDW Standard Deviation 47.5(H) 37.0 - 46.0 fL [facility] RDW coefficient of variation 13.2 11.5 - 14.1 % [facility] Mean Platelet Volume 10.6 7.6 - 12.9 fL [facility] NRBC% auto 0.0 % [facility] NRBC Absolute 0.000 0.000 - 0.000 x10(3)/mc L [facility] Blood 08/31/2023 2:18 AM EDT 08/31/2023 2:23 AM EDT Narrative Resulting Agency Comment Spec In Lab Archie Mcmanus MD HEMATOLOGY ORDERABLE S Performing Organization Address [facility] Co de Phone Number [facility] [place] [address] * Magnesium (08/31/2023 2:18 AM EDT) Magnesium 0.96 0.69 - 1.07 mmol/L [facility] Blood 08/31/2023 2:18 AM EDT 08/31/2023 2:23 AM EDT Narrative Resulting Agency Comment Spec In Lab Eufemia Copeland MD CHEMISTRY ORDERABL ES Performing Organization Address [facility] Co de Phone Number [facility] [place] [address] * (ABNORMAL) Basic Metabolic Panel (non-fasting) (08/31/2023 2:18 AM EDT) Glucose 114 65 - 199 mg/dL [facility] Comment:Diabetes: >=200 mg/d L plus symptoms Blood Urea Nitrogen 18 8 - 18 mg/dL [facility] Creatinine 1.37(H) 0.70 - 1.20 mg/dL [facility] Sodium 137 135 - 145 mmol/L [facility] Comment:result rechecked-bz Potassium 3.8 3.5 - 5.0 mmol/L [facility] Comment: result rechecked-bz Please note: ??Patients with WBC >100,000 may have falsely elevated Potassium levels. ??For accurate Potassium quantification in these patients send serum separator tube (gold top) for subsequent determinations. ??Contact the Clinical Chemistry Laboratory if there are any questions. Chloride 100 98 - 107 mmol/L [facility] Comment:result rechecked-bz Carbon Dioxide 25 22 - 31 mmol/L [facility] Anion Gap 12 5 - 15 mmol/L [facility] Calcium 9.6 8.5 - 10.5 mg/dL [facility] Comment:result rechecked-bz Est Glomerular Filtration Rate 46(L) >=60 mL/min/1. 73 m?? [facility] [...] In Lab Archie Mcmanus MD CHEMISTRY ORDERABLES [facility] [place] [address] * Differential, Automated (08/30/2023 3:09 AM EDT) Neutrophil % 67.5 % [facility] Neutrophil Absolute 5.26 1.70 - 6.10 x10(3)/[facility] Lymph % 19.1 % [facility] Lymphocytes Abs 1.5 0.9 - 3.2 x10(3)/[facility] Monocyte % 9.4 % [facility] Monocyte Abs 0.7 0.3 - 0.9 x10(3)/[facility] Eos % 3.2 % [facility] Eosinophils Abs 0.2 0.0 - 0.4 x10(3)/[facility] Basophil % 0.4 % [facility] Baso Absolute 0.0 0.0 - 0.1 x10(3)/[facility] LABORATORY [...] - 0.04 x10(3)/[facility] Blood 08/30/2023 3:09 AM EDT 08/30/2023 3:21 AM EDT Narrative Resulting Agency Comment Spec In Lab Archie Mcmanus MD HEMATOLOGY ORDERABLE S [facility] [place] [address] * (ABNORMAL) Hemogram (08/30/2023 3:09 AM EDT) White Blood Cell 7.8 4.0 - 9.5 x10(3)/mc L [facility] Red Blood Cell 3.34(L) 4.00 - 5.21 x10(6)/mc L [facility] Hemoglobin 10.5(L) 11.7 - 15.5 g/dL [facility] Hematocrit 31.8(L) 35.7 - 45.8 % [facility] Mean Cell Volume 95.2(H) 82.6 - 94.4 fL [facility] Mean Cell Hemoglobin 31.4 27.1 - 32.0 pg [facility] Mean Cell Hemoglobin Concentration 33.0 31.7 - 35.0 g/dL [facility] Platelet 176 145 - 357 x10(3)/mc L [facility] RDW Standard Deviation 46.5(H) 37.0 - 46.0 fL [facility] RDW coefficient of variation 13.2 11.5 - 14.1 % [facility] Mean Platelet Volume 10.9 7.6 - 12.9 fL [facility] NRBC% auto 0.0 % [facility] NRBC Absolute 0.000 0.000 - 0.000 x10(3)/mc L [facility] Blood 08/30/2023 3:09 AM EDT 08/30/2023 3:21 AM EDT Narrative Resulting Agency Comment Spec In Lab Archie Mcmanus MD HEMATOLOGY ORDERABLE S Performing Organization Address City/State/[facility] Co de Phone Number [facility] [place] [address] * Heparin (unfractionated) Level (08/30/2023 3:09 AM EDT) UF Heparin 0.46 IU/mL [facility] Lab Archie Mcmanus MD HEMATOLOGY ORDERABLE S [facility] [place] [address] * Magnesium (08/30/2023 3:09 AM EDT) Pathologist [facility] Magnesium 0.74 0.69 - 1.07 mmol/L [facility] Blood 08/30/2023 3:09 AM EDT 08/30/2023 3:20 AM EDT Narrative Resulting Agency Comment Spec In Lab Eufemia Copeland MD CHEMISTRY ORDERABL ES Performing Organization Address [facility]/ZIP Co de Phone Number [facility] [place] [address] * (ABNORMAL) Basic Metabolic Panel (non-fasting) (08/30/2023 3:09 AM EDT) Pathologist [facility] Glucose 99 65 - 199 mg/dL [facility] Comment:Diabetes: >=200 mg/d L plus symptoms Blood Urea Nitrogen 16 8 - 18 mg/dL [facility] Creatinine 1.03 0.70 - 1.20 mg/dL [facility] Sodium 145 135 - 145 mmol/L [facility] Potassium 3.7 3.5 - 5.0 mmol/L [facility] Comment: Please note: ??Patients with WBC >100,000 may have falsely elevated Potassium levels. ??For accurate Potassium quantification in these patients send serum separator tube (gold top) for subsequent determinations. ??Contact the Clinical Chemistry Laboratory if there are any questions. Chloride 114(H) 98 - 107 mmol/L [facility] Carbon Dioxide 19(L) 22 - 31 mmol/L [facility] Anion Gap 12 5 - 15 mmol/L [facility] Calcium 7.1(L) 8.5 - 10.5 mg/dL [facility] Comment:result rechecked-mg Est Glomerular Filtration Rate 65 >=60 mL/min/1. 73 m?? [facility] [...] MD CHEMISTRY ORDERABLES Performing Organization Address [facility] Co de Phone Number [facility] [place] [address] * Heparin (unfractionated) Level (08/29/2023 5:49 PM EDT) UF Heparin 0.52 IU/mL [facility] Comment: [...] HEMATOLOGY ORDERABLE S Performing Organization Address [facility]/ZIP Co de Phone Number [facility] [place] [address] * EKG 12 Lead (08/29/2023 3:05 PM EDT) Ventricular rate 56 BPM MUSE SYSTEM Atrial Rate 56 BPM MUSE SYSTEM P-R Interval 172 ms MUSE SYSTEM QRS Duration 86 ms MUSE SYSTEM Q-T Interval 560 ms MUSE SYSTEM QTC Calculated (Bezet) 540 ms MUSE SYSTEM Calculated P [place] 10 degrees MUSE SYSTEM Calculated R [place] 27 degrees MUSE SYSTEM Calculated T [place] 8 degrees MUSE SYSTEM INTERPRETATION Sinus bradycardia [...] 11:48 AM EDT) UF Heparin 0.55 IU/mL [facility] Comment: Heparin (anti-Xa) levels should [...] Archie Mcmanus MD HEMATOLOGY ORDERABLE S [facility] [place] [address] * ECHO LMTD W CONTRAST W LMTD SPEC DOPP COLOR DOPP (08/29/2023 11:35 AM EDT) EF 50 HEARTLAB SYSTEM Anatomical Region Laterality Modality Cardiac Other 08/29/2023 9:47 AM EDT Narrative 08/29/2023 12:27 PM EDT [address] [place] [address] ? Echocardiogram Report Name: JUDE, LOIDA ? Study Date: 08/29/2023 09:47 AMBP: 100/55 mmHg ? Patient Location: [place] 0[facility] A : 1970 ? Height: 163 cm ? Account: [id number] Age: 53 yrs ? Weight: 102 kg Gender: Female ?BSA: 2.1 m2 Ordering Physician: ARCHIE MCMANUS Referring Physician: SKIP HUMPHREY Performed By: Nalini Alvares RDCS Exam Location: [facility]. Interpretation Summary Left ventricle is normal in size. There is low normal global systolic function, with focal hypokinesis in the anteroseptum as ascribed. Right ventricle is not well visualized. No hemodynamically significant valve disease. Compared to prior studies over the past 6 months, there has been stable global LV systolic function, with oscillating regional function of the anterior wall. Procedure Limited - [id number]. Image enhancement Optison was used for left [...] Note Jaspreet Kinsey MD - 08/29/2023 1 [place] [address] Echocardiogram Report Name: LOIDA MADRIGAL Study Date: 409:47 AMBP: 100/55 mmHg Patient Location: [address] : 1970 Height: 163 cm Account: [id number] Age: 53 yrs Weight: 102 kg Gender: Female BSA: 2.1 m2 Ordering Physician: ARCHIE MCMANUS Referring Physician: SKIP HUMPHREY Performed By: Nalini Alvares RDCS Exam Location: [facility]. Interpretation Summary Left ventricle is normal in size. There is low normal global systolicfunction, with focal hypokinesis in the anteroseptum as ascribed. Right ventricle is not well visualized. No hemodynamically significant valve disease. Compared to prior studies over the past 6 months, there has been stableglobal LV systolic function, with oscillating regional function of the anteriorwall. Procedure Limited - [id number]. Image enhancement Optison was used for left [...] (Bezet) 546 ms MUSE SYSTEM Calculated P [place] 21 degrees MUSE SYSTEM Calculated R [place] 21 degrees MUSE SYSTEM Calculated T [place] 0 degrees MUSE SYSTEM INTERPRETATION Sinus bradycardia Possible Lateral infarct (cited on or before 29-JUL-2023) Prolonged QT Abnormal ECG When compared with ECG of 29-JUL-2023 08:47, Premature atrial complexes are no longer Present Criteria for Septal infarct are no longer Present Nonspecific T wave abnormality, improved in Inferior leads QT has lengthened Confirmed by MD Amelie, Jaspreet ([id number]) on 08/29/2023 3:51:39 PM MUSE SYSTEM 08/29/2023 6:04 AM EDT 08/29/2023 3:51 PM EDT Archie Mcmanus MD ECG ORDERABLES MUSE SYSTEM * CRP, acute inflammation (08/29/2023 4:01 AM EDT) [facility] C-Reactive Protein <3.0 <=4.9 mg/L [facility] Blood Venous Draw / Unknown 08/29/2023 4:01 AM EDT 08/29/2023 4:13 AM EDT Narrative Resulting Agency Comment Spec In Lab Eufemia Copeland MD CHEMISTRY ORDERABL ES [facility] [place] [address] * Sedimentation rate (08/29/2023 4:01 AM EDT) [facility] Sedimentation Rate Automated 11 2 - 39 mm/hr [facility] [...] HEMATOLOGY ORDERAB LES Performing Organization Address City/[facility]/ZIP Co de Phone Number [facility] [place] [address] * Green Tube HOLD (08/29/2023 4:01 AM EDT) [facility] Green Hold Sample in lab. [facility] Blood Venous Draw / Unknown 08/29/2023 4:01 AM EDT 08/29/2023 4:09 AM EDT Archie Mcmanus MD CHEMISTRY ORDERABLES Performing Organization Address City/[facility] Co de Phone Number [facility] [place] [address] * Differential, Automated (08/29/2023 4:01 AM EDT) Pathologist [facility] Neutrophil % 65.6 % [facility] Neutrophil Absolute 5.23 1.70 - 6.10 x10(3)/[facility] LABORAT[facility] Lymph % 21.4 % [facility] Lymphocytes Abs 1.7 0.9 - 3.2 x10(3)/[facility] Monocyte % 8.5 % [facility] Monocyte Abs 0.7 0.3 - 0.9 x10(3)/[facility] Eos % 4.0 % [facility] Eosinophils Abs 0.3 0.0 - 0.4 x10(3)/[facility]AT[facility] Basophil % 0.4 % [facility] Baso Absolute 0.0 0.0 - 0.1 x10(3)/[facility] LABORATORY Immature Gran % 0.10 % [facility] Comment: Immature granulocytes(IG's)percentage and absolute count will include metamyelocytes, myelocytes, and promyelocytes. Blood smears from CBCs yielding IG's will be scanned manually for concordance. If this scan disagrees with the automated IG or if promyelocytes are noted, a manual differential will be performed. Immature Gran Absolute 0.01 0.00 - 0.04 x10(3)/[facility]ORAT[facility] Blood 08/29/2023 4:01 AM EDT 08/29/2023 4:08 AM EDT Narrative Resulting Agency Comment Spec In Lab Archie Mcmanus MD HEMATOLOGY ORDERABLE S [facility] [place] [address] * (ABNORMAL) Hemogram (08/29/2023 4:01 AM EDT) White Blood Cell 8.0 4.0 - 9.5 x10(3)/mc L [facility] Red Blood Cell 3.91(L) 4.00 - 5.21 x10(6)/mc L [facility] Hemoglobin 12.6 11.7 - 15.5 g/dL [facility] Hematocrit 37.6 35.7 - 45.8 % [facility] Mean Cell Volume 96.2(H) 82.6 - 94.4 fL [facility] Mean Cell Hemoglobin 32.2(H) 27.1 - 32.0 pg [facility] Mean Cell Hemoglobin Concentration 33.5 31.7 - 35.0 g/dL [facility] Platelet 197 145 - 357 x10(3)/mc L [facility] RDW Standard Deviation 46.7(H) 37.0 - 46.0 fL [facility] RDW coefficient of variation 13.3 11.5 - 14.1 % [facility] Mean Platelet Volume 10.4 7.6 - 12.9 fL [facility] NRBC% auto 0.0 % [facility] NRBC Absolute 0.000 0.000 - 0.000 x10(3)/mc L [facility] Blood 08/29/2023 4:01 AM EDT 08/29/2023 4:08 AM EDT Narrative Resulting Agency Comment Spec In Lab Archie Mcmanus MD HEMATOLOGY ORDERABLE S Performing Organization Address [facility]/ZIP Co de Phone Number [facility] [place] [address] * (ABNORMAL) Heparin (unfractionated) Level (08/29/2023 4:01 AM EDT) UF Heparin 1.04(Crit ical) IU/mL [facility] Comment: [...] HEMATOLOGY ORDERABLE S Performing Organization Address City/[facility]/ZIP Co de Phone Number [facility] [place] [address] * (ABNORMAL) Basic Metabolic Panel (non-fasting) (08/29/2023 4:01 AM EDT) Glucose 106 65 - 199 mg/dL [facility] Comment:Diabetes: >=200 mg/d L plus symptoms Blood Urea Nitrogen 24(H) 8 - 18 mg/dL [facility] Creatinine 1.18 0.70 - 1.20 mg/dL [facility] Sodium 141 135 - 145 mmol/L [facility] Potassium 3.5 3.5 - 5.0 mmol/L [facility] Comment: Please note: ??Patients with WBC >100,000 may have falsely elevated Potassium levels. ??For accurate Potassium quantification in these patients send serum separator tube (gold top) for subsequent determinations. ??Contact the Clinical Chemistry Laboratory if there are any questions. Chloride 107 98 - 107 mmol/L [facility] Carbon Dioxide 22 22 - 31 mmol/L [facility] Anion Gap 12 5 - 15 mmol/L [facility] Calcium 8.8 8.5 - 10.5 mg/dL [facility] Est Glomerular Filtration Rate 55(L) >=60 mL/min/1. 73 m?? [facility] [...] In Lab Archie Mcmanus MD CHEMISTRY ORDERABLES [facility] [place] [address] * (ABNORMAL) Troponin (08/29/2023 12:31 AM EDT) [facility] Troponin-T, High Sensitivity 31(H) <=14 ng/L [facility] Comment: [...] found in the [facility] Laboratory Test Catalog Troponin - [facility] Laboratory Test Catalog Reference: Fourth Kennan Definition of Myocardial Infarction. Journal of the [place] [employer] 2018;72:5427-3825 Blood 08/29/2023 12:3 1 AM EDT 08/29/2023 12:35 AM EDT Narrative Resulting Agency Comment Spec In Lab Archie Mcmanus MD CHEMISTRY ORDERABLES [facility] [place] [address] * Differential, Automated (08/28/2023 9:07 PM EDT) [facility] Neutrophil % 59.8 % [facility] Neutrophil Absolute 4.06 1.70 - 6.10 x10(3)/mcL [facility] Lymph % 28.8 % [facility] Lymphocytes Abs 2.0 0.9 - 3.2 x10(3)/[facility] Monocyte % 5.7 % [facility] Monocyte Abs 0.4 0.3 - 0.9 x10(3)/[facility] Eos % 4.6 % [facility] Eosinophils Abs 0.3 0.0 - 0.4 x10(3)/[facility] Basophil % 0.7 % [facility] Baso Absolute 0.0 0.0 - 0.1 x10(3)/[facility] [...] - 0.04 x10(3)/[facility] Blood 08/28/2023 9:07 PM EDT 08/28/2023 9:12 PM EDT Narrative Resulting Agency Comment Spec In Lab Archie Mcmanus MD HEMATOLOGY ORDERABLE S [facility] [place] [address] * (ABNORMAL) Hemogram (08/28/2023 9:07 PM EDT) White Blood Cell 6.8 4.0 - 9.5 x10(3)/mc L [facility] Red Blood Cell 4.39 4.00 - 5.21 x10(6)/mc L [facility] Hemoglobin 14.1 11.7 - 15.5 g/dL [facility] Hematocrit 42.2 35.7 - 45.8 % [facility] Mean Cell Volume 96.1(H) 82.6 - 94.4 fL [facility] Mean Cell Hemoglobin 32.1(H) 27.1 - 32.0 pg [facility] Mean Cell Hemoglobin Concentration 33.4 31.7 - 35.0 g/dL [facility] Platelet 234 145 - 357 x10(3)/mc L [facility] RDW Standard Deviation 47.3(H) 37.0 - 46.0 fL [facility] RDW coefficient of variation 13.3 11.5 - 14.1 % [facility] Mean Platelet Volume 10.3 7.6 - 12.9 fL [facility] NRBC% auto 0.0 % [facility] NRBC Absolute 0.000 0.000 - 0.000 x10(3)/mc L [facility] Blood 08/28/2023 9:07 PM EDT 08/28/2023 9:12 PM EDT Narrative Resulting Agency Comment Spec In Lab Archie Mcmanus MD HEMATOLOGY ORDERABLE S [facility] [place] [address] * (ABNORMAL) Heparin (unfractionated) Level (08/28/2023 9:07 PM EDT) UF Heparin 1.90(Crit ical) IU/mL [facility] Comment: Critical Result called by ?? HOWAJM CRITICAL Results read back by: ? katalina [...] Lab Archie Mcmanus MD HEMATOLOGY ORDERABLE S [facility] [place] [address] * Lipid Panel (Reflex Direct LDL) (08/28/2023 9:07 PM EDT) Cholesterol, Total 203 mg/dL [facility] Comment: Desirable: ? <200 mg/dL Borderline High: 200-239 mg/dL Higher: ?>hn=448 mg/dL Triglyceride 146 mg/dL [facility] Comment: Normal: ?<150 mg/dL Borderline High: 150-199 mg/dL High: ?200-499 mg/dL Very High: ? >yh=108 mg/dL HDL Cholesterol 52 mg/dL [facility] Comment: Females: High Risk: <50 mg/dL Males: High Risk: <40 mg/dL LDL Cholesterol 122 mg/dL [facility] Comment: Desirable: ? <100 mg/dL Above Desirable: 100-129 mg/dL Borderline High: 130-159 mg/dL High: ?160-189 mg/dL Very High: ? >vt=656 mg/dL Lipid Interpretation See Note [facility] Comment: It is important [...] ACC/AHA Guidelines (most recently Ysabel et al. [facility] 12/09/21): For individuals with atherosclerotic cardiovascular disease (ASCVD)or LDL >ij=501 mg/dL, use a high-intensity statin (40-80 mg [...] In Lab Archie Mcmanus [place] [address] * (ABNORMAL) pro-Brain Natriuretic Peptide (08/28/2023 9:07 PM EDT) NT-proBNP 2,854(H) <=124 pg/mL [facility] Blood 08/28/2023 9:07 PM EDT 08/28/2023 9:12 PM EDT Narrative Resulting Agency Comment Spec In Lab Archie Mcmanus MD CHEMISTRY ORDERABLES [facility] [place] [address] * (ABNORMAL) Troponin (08/28/2023 9:07 PM EDT) Troponin-T, High Sensitivity 31(H) <=14 ng/L [facility] Comment: [...] found in the [facility] Laboratory Test Catalog Troponin - [facility] Laboratory Test Catalog Reference: Fourth Kennan Definition of Myocardial Infarction. Journal of the [place] [employer] 2018;72:5123-6120 Blood 08/28/2023 9:07 PM EDT 08/28/2023 9:12 PM EDT Narrative Resulting Agency Comment Spec In Lab Archie Mcmanus MD CHEMISTRY ORDERABLES Performing Organization Address [facility] Co de Phone Number [facility] [place] [address] * (ABNORMAL) Hepatic Function Panel (08/28/2023 9:07 PM EDT) [facility] Protein, Total 6.6 6.1 - 8.0 g/dL [facility] Albumin 4.2 3.2 - 5.2 g/dL [facility] Aspartate Aminotransferase 32(H) 0 - 30 unit/L [facility] Alanine Aminotransferase 28 0 - 30 unit/L [facility] Alkaline Phosphatase 52 35 - 105 unit/L [facility] Bilirubin, Total 0.6 0.2 - 1.3 mg/dL [facility] Bilirubin, Direct 0.2 0.0 - 0.3 mg/dL [facility] Blood 08/28/2023 9:07 PM EDT 08/28/2023 9:12 PM EDT Narrative Resulting Agency Comment Spec In Lab Archie Mcmanus MD CHEMISTRY ORDERABLES Performing Organization Address [facility] Hospital/[facility] Co de Phone Number [facility] [place] [address] * (ABNORMAL) Basic Metabolic Panel (non-fasting) (08/28/2023 9:07 PM EDT) [facility] Glucose 95 65 - 199 mg/dL [facility] Comment:Diabetes: >=200 mg/d L plus symptoms Blood Urea Nitrogen 22(H) 8 - 18 mg/dL [facility] Creatinine 1.13 0.70 - 1.20 mg/dL [facility] Sodium 140 135 - 145 mmol/L [facility] Potassium 3.5 3.5 - 5.0 mmol/L [facility] Comment: Please note: ??Patients with WBC >100,000 may have falsely elevated Potassium levels. ??For accurate Potassium quantification in these patients send serum separator tube (gold top) for subsequent determinations. ??Contact the Clinical Chemistry Laboratory if there are any questions. Chloride 105 98 - 107 mmol/L [facility] Carbon Dioxide 21(L) 22 - 31 mmol/L [facility] Anion Gap 14 5 - 15 mmol/L [facility] Calcium 9.3 8.5 - 10.5 mg/dL [facility] Est Glomerular Filtration Rate 58(L) >=60 mL/min/1. 73 m?? [facility] [...] MD CHEMISTRY ORDERABLES Performing Organization Address [facility] Co de Phone Number [facility] [place] [address] * Magnesium (08/28/2023 9:07 PM EDT) Magnesium 1.05 0.69 - 1.07 mmol/L [facility] Blood 08/28/2023 9:07 PM EDT 08/28/2023 9:12 PM EDT Narrative Resulting Agency Comment Spec In Lab Archie Mcmanus MD CHEMISTRY ORDERABLES Performing Organization Address [facility]/ZIP Co de Phone Number [facility] [place] [address] documented in this encounter Visit Diagnoses Diagnosis [...] 2038, Until 08/28/23 at 2030, Samantha Patino: aimeeinet override heparin (porcine) 50 units/mL in dextrose [...] Intravenous, ONCE PRN, 1 dose, Starting on Wed09/05/23 at 1625, Until Wed09/05/23 at 1625, Per Protocol, Radiology Contrast, Routine [...] dose, Starting on 08/29/23 at 1135, Until 08/29/23 at 1002, for enhancement of sub-optimal echo [...] Intravenous, 2 TIMES DAILY, First dose on Wed08/28/23 at 2145, Until Discontinued, Routine Given 09/10/2023 8:29 AM EDT 5 mLs Given 09/09/2023 8:41 PM EDT 5 mLs Given 09/09/2023 8:23 AM EDT 5 mLs sodium chloride 0.9 % (flush) (BD PosiFlush Normal Saline 0.9) flush 5-20 mL 5-20 mL, Intravenous, EVERY 1 MIN PRN, Starting on Wed08/28/23 at 2049, Until Wed09/10/23 at 1932, flush, Flush pertains to all indwelling lines. Flush per protocol found in the job aid using the link provided on this medication record., Routine Given 08/28/2023 9:32 PM EDT 5 mLs spironolactone (Aldactone) tablet 25 mg 25 mg, Oral, DAILY, First dose on Wed08/29/23 at 0900, Until Discontinued, DO NOT SPLIT, [...] Oral, 2 TIMES DAILY, First dose on Wed08/29/23 at 2100, Until Discontinued, Routine Given 08/29/2023 [...] Routine, apixaban (Eliquis) Indication: Non-Valvular Atrial Fibrillation 838 (Given - Provider: Chayo Painting RN)2056 (Given - Provider: Jo Ann Bello RN) 0818 (Given - Provider: Tim Cardoza RN)204 (Given - Provider: Jo Ann Bello RN) [...] (Given - Provider: Jo Ann Bello RN) 204 (Given - Provider: Jo Ann Bello RN) [...] Painting RN) 0817 (Given - Provider: Tim Cardoza, ERWIN) 0822 (Given - Provider: Tim Cardoza RN) [...] (Given - Provider: Jo Ann Bello, ERWIN) 0821 (Given - Provider: Tim Cardoza RN) sodium chloride 0.9 % (flush) (BD PosiFlush Normal Saline 0.9) flush 5 mL 5 mL, Intravenous, 2 TIMES DAILY, First dose on 08/28/23 at 2145, Until Discontinued, Routine 0842 (Given - Provider: Chayo Painting RN)2100 (Given - Provider: Jo Ann Bello, ERWIN) 08 (Given - Provider: Tim Cardoza, ERWIN)2040 (Given - Provider: Jo Ann Bello, ERWIN) 08 (Given - Provider: Tim Cardoza RN) spironolactone (Aldactone) tablet 25 mg 25 [...] Routine 2058 (Given - Provider: Jo Ann Bello, ERWIN) 2037 (Given - Provider: Jo Ann Bello [...] on 08/28/23 at 2048, Until Wed09/10/23 at 1931, Chest pain, SL nitroglycerin may be repeated every 5 minutes as needed up to 3 doses, Routine polyethylene glycoL (Miralax) packet 17 g 17 g, Oral, 2 TIMES DAILY PRN, Starting on Wed08/30/23 at 1208, Until Wed09/10/23 at 193, Constipation, Routine potassium chloride ER (Klor-Con M) crystal tablet 40-60 mEq 40-60 mEq, Oral, PER POTASSIUM PROTOCOL, Starting on Wed09/04/23 at 0833, Until Wed09/10/23 at 1931, potassium replenishment, DO NOT CRUSH OR OPEN [...] 1 MIN PRN, Starting on 08/28/23 at 2048, Until Wed09/10/23 at 193, flush, Flush pertains [...] RN) documented in this encounter Care Teams Paint Spray Inspector Relationship Specialty Start Date End Date Polo Pearce PA [address] [place] [address] PCP - General Internal Medicine 06/09/21 documented as of this encounter
--- OUTSIDE RECORDS SUMMARY | 2023-10-22 00:35 | XMS_ITS | Encounter Summary ---
Author Organization [facility] [place] [address] Care Team Providers Care Cyber Security Manager Name Role Phone Polo Pearce Primary Care Provider [phone] Reason for Referral * Diagnostic Test (Routine) - New Request Specialty Diagnoses / Procedures Referred By Jayant harris Referred To Contact Diagnoses Mesenteric ischemia Procedures Duplex Study Visceral Arteries, Comp Thiago Way MD [facility] [place] [address] [facility] [address] [place] [phone] Referral ID Status Reason Start Date Expiration Date Visits Requested Visits Authorized [id number] New Request Specialty Service Requested 10/08/2023 10/07/2024 1 1 Encounter Details Date Type Department Care Team (Late st Contact Info) Description 10/08/2023 9:30 AM EDT Office [place] [address] MD [facility] [place] [address] Mesenteric ischemia (Primary Dx) Social [...] in a longterm (including now)? No 06/15/2023 Housing Stability Vital [...] time in the past [address] [facility], were you homeless or living in a longterm (including now)? No 08/30/2023 DH IPV Inpatient [...] bloating who underwent an SMA stent with pa back in July 01. Upon returning today [...] , Rfl: fluticasone propionate (FLONASE) 50 mcg/actuation [place], Suspension, 1 spray by Each Nare route [...] Text Report Department: Vascular Surgery Lab Patient: [id number] (ROHAN, MELINDA) CPT: 43696 Referring Physician: HARJEET PICKENS Phone: Indications: s/p [...] within mesenteric artery stents may differ from [place] arteries, with thresholds for diagnosis of significant stenosis likely being somewhat higher in stented arteries than [place].% To date, there is no evidence based consensus of stent velocity criteria. Therefore, the current interpretation is based on [place] artery thresholds. Previous Celiac/Mesenteric Studies: Date SMA PSV EDV Celiac PSV EDV 427 91 833 59 2037/04/29 289 27 505 43 7126/05/28 316 39 100 22 Current Exam 289 [...] PM EDT Office Visit Cardiology at [address] [address] Jaspreet Kinsey MD [facility] [place] [address] 10/28/2023 9:00 AM EDT Office Visit [place] [address] 10/29/2023 10:00 AM EDT Clinical Support [place] [address] 10/29/2023 10:15 AM EDT Procedure visit [place] [address] 11/01/2023 5:00 PM EDT Office [place] [address] Selene Browning, PhD [facility] [place] [address] 11/22/2023 4:40 PM EDT Office Visit Cardiology at [address] [phone] Porsha Mcdaniels MD [facility] [place] [address] 12/13/2023 10:00 AM EDT Clinical [place] [phone] Lucero Romero, ALVA [facility] [place] [address] documented as of this encounter Visit Diagnoses Diagnosis Mesenteric ischemia- Primary Unspecified vascular insufficiency of intestine documented in this encounter Care Teams Cyber Security Manager Relationship Specialty Start Date End Date Polo Pearce PA [address] [place] [address] PCP - General Internal Medicine 06/09/21 documented as of this encounter
--- OUTSIDE RECORDS SUMMARY | 2023-10-22 00:35 | XMS_ITS | Encounter Summary ---
Author Organization [facility] [place] [address] Care Team Providers Care Copy Reader Name Role Phone Polo Pearce Primary Care Provider [phone] Reason for Referral * Diagnostic Test (Routine) - Pending Review Specialty Diagnoses / Procedures Referred By Contac t Referred To Contact Radiology Procedures Non [place] [address] Referral ID Status Reason Start Date Expiration Date Visits Requested Visits Authorized [id number] Pending Review Specialty Service Requested 09/20/2023 03/22/2025 1 1 * Diagnostic Test (Routine) - Pending Review Specialty Diagnoses / Procedures Referred By Contac t Referred To Contact Radiology Procedures Non [place] [address] Referral ID Status Reason Start Date Expiration Date Visits Requested Visits Authorized [id number] Pending Review Specialty Service Requested 09/20/2023 03/22/2025 1 1 * Diagnostic Test (Routine) - New Request Specialty Diagnoses / Procedures Referred By Contac t Referred To Contact Radiology Procedures Non [place] [address] Referral ID Status Reason Start Date Expiration Date Visits Requested Visits Authorized [id number] New Request Specialty Service Requested 09/20/2023 03/22/2025 1 1 Encounter Details Date Type Department Care Team (Nadege alan Contact Info) Description 09/20/2023 External Results Administration [facility] [place] [address] Social History Tobacco Use Types Packs/Day Years [...] a nursing home (including now)? No 08/30/2023 IPV Inpatient Questions [...] Office Visit Cardiology at [address] [phone] Jaspreet Kinsey MD [facility] [place] [address] 10/28/2023 9:00 AM EDT Office [place] [address] 10/29/2023 10:00 AM EDT Clinical [place] [address] 10/29/2023 10:15 AM EDT Procedure [place] [address] 11/01/2023 5:00 PM EDT Office [place] [phone] Selene Browning, PhD [facility] [place] [address] 11/22/2023 4:40 PM EDT Office Visit Cardiology at [address] [phone] Porsha Mcdaniels MD [facility] [place] [address] 12/13/2023 10:00 AM EDT Clinical [place] [address] [facility] [place] [address] documented as of this encounter Procedures Procedure [...] Modality Magnetic Resonan ce Historical Provider MD IMG MRI ORDERABLE S * Non DH [...] on filedocumented in this encounter Care Teams Copy Reader Relationship Specialty Start Date End Date Polo Pearce PA [address] [place] [address] PCP - General Internal Medicine 06/09/21 documented as of this encounter
--- OUTSIDE RECORDS SUMMARY | 2023-10-22 00:36 | XMS_ITS | Encounter Summary ---
[place] [address] Care Team Providers Care Manager Presentation Name Role Phone Polo Pearce Primary Care Provider [phone] Encounter Details Date Type Department Care Team (Late st Contact Info) Description 08/03/2023 8:30 AM EDT Tech [place] [address] Eladio Boyer Mesenteric ischemia Social History Tobacco Use Types Packs/Day Years Used Date Smoking Tobacco: Never Smokeless Tobacco: Never Alcohol Use Standard Drinks/Week Comments Never 0 (1 standard drink = 0.6 oz pur e alcohol) [facility] Utilities Answer Date Recorded In the past 12 months has e [employer], gas, oil, or water [employer] threatened to shut off services in your [...] PM EDT Office Visit Cardiology at [address] [phone] Jaspreet Kinsey MD [facility] [place] [address] 10/28/2023 9:00 AM EDT Office Visit [place] [address] 10/29/2023 10:00 AM EDT Clinical Support [place] [address] 10/29/2023 10:15 AM EDT Procedure visit [place] [address] 11/01/2023 5:00 PM EDT Office [place] [address] Selene Browning, PhD [facility] PSYCHIATRY [place] [address] 11/22/2023 4:40 PM EDT Office Visit Cardiology at [address] [phone] Porsha Mcdaniels MD [facility] [place] [address] 12/13/2023 10:00 AM EDT Clinical Support [place] [address] [facility] [place]ITION [place] [address] documented as of this encounter Procedures Procedure Name Priority Date/Time Associated Diagnosis Comments MESENTERIC COMPLETE Routine 08/03/2023 8 :36 AM EDT Mesenteric ischemia documented in this encounter Results * Duplex Study Visceral Arteries, Comp (08/03/2023 8:36 AM EDT) VB Text Report Department: Vascular Surgery Lab Patient: [id number] (LOIDA ROQUE) CPT: [id number] Referring Physician: MAMIE MARX ?? Phone: Indications: S/p SMA stenting (07/01) one month f/u, ? patency Findings: Unilateral ? Waveform ? PSV cm/s ??EDV cm/s ??Patent ?? Dary Visceral Aorta ? 71 ?14 ? Celiac Artery, Proximal ??Stephenson-Biphasic ? 100 ?22 ? Celiac Artery, Mid ? [place]-Biphasic ?99 ?19 ? Celiac Artery, Distal ?[place]son-Biphasic ?94 ?18 ? Sup Mes Artery Proximal [...] within mesenteric artery stents may differ from [place] arteries, with thresholds for diagnosis of significant stenosis likely being somewhat higher in stented arteries than [place].% To date, there is no evidence based consensus of stent velocity criteria. Therefore, the current interpretation is based on [place] artery thresholds. Previous Celiac/Mesenteric Studies: Date ? [...] Marx APRN VASCULAR ORDERABLES Performing Organization Address City/State/[facility] Co de Phone Number [facility] documented in this encounter Visit Diagnoses Diagnosis Mesenteric ischemia Unspecified vascular insufficiency of intestine documented in this encounter Care Teams Manager Presentation Relationship Specialty Start Date End Date Polo Pearce PA [address] [place] [address] PCP - General Internal Medicine 06/09/21 documented as of this encounter
--- OUTSIDE RECORDS SUMMARY | 2023-10-22 00:36 | XMS_ITS | Encounter Summary ---
[place] [address] Care Team Providers Care Certified Physician'S Assistant Name Role Phone Polo Pearce Primary Care Provider [phone] Reason for Referral * Diagnostic Test (Routine) - New Request Specialty Diagnoses / Procedures Referred By Jayant harris Referred To Contact Diagnoses Mesenteric ischemia Procedures Duplex Study Visceral Arteries, Comp Judith Pickens APRN [facility] [place] [address] [facility] [address] [place] [phone] Referral ID Status Reason Start Date Expiration Date Visits Requested Visits Authorized [id number] New Request Specialty Service Requested 08/03/2023 08/02/2024 1 1 Encounter Details Date Type Department Care Team (Late st Contact Info) Description 08/03/2023 9:30 AM EDT Office [place] [address] Judith Pickens APRN [facility] [place] [address] Mesenteric ischemia Social History Tobacco [...] in this encounter Progress Notes * Judith Pickens, ROM - 08/03/2023 9:30 AM EDT Vascular [...] as needed. fluticasone propionate (FLONASE) 50 mcg/actuation [place], Suspension 1 spray by Each Nare route [...] Text Report Department: Vascular Surgery Lab Patient: [id number] (ROHAN, MELINDA) CPT: [id number] Referring Physician: MAMIE LARRY Phone: Indications: S/p SMA stenting (07/01) one month f/u, ? patency Findings: Unilateral Waveform PSV cm/s EDV cm/s Patent Dary Visceral Aorta 71 14 Celiac Artery, Proximal [place]-Biphasic 100 22 Celiac Artery, Mid [place]-Biphasic 99 19 Celiac Artery, Distal [place]-Biphasic 94 18 Sup Mes Artery Proximal Bi-Triphasic [...] within mesenteric artery stents may differ from [place] arteries, with thresholds for diagnosis of significant stenosis likely being somewhat higher in stented arteries than [place].% To date, there is no evidence based consensus of stent velocity criteria. Therefore, the curre nt interpretation is based on [place] artery thresholds. Previous Celiac/Mesenteric Studies: Date SMA PSV EDV Celiac PSV EDV 427 91 943 98 7032/04/29 289 27 116 20 Current Exam 316 [...] review the duplex results today with Dr. Zavala and amend note if the following plan changes. Plan: - Follow up with mesenteric duplex in 3 months. - Continue daily statin. - Go to ED with increasing abdominal pain. - Contact clinic with any questions or concerns prior to next appointment. Future Appointments Date Time Provider Department Center 08/17/2023 1:15 PM [facility] [place] PET MOBILE [facility] Rad 08/25/2023 10:00 AM Mary Reyes APRN [facility] GASTRO [facility] 10/26/2023 4:00 PM Jaspreet Kinsey MD [facility] Cardio [facility] 11/22/2023 4:40 PM Porsha Mcdaniels MD [facility] CARD 4A [facility] Judith Pickens APRN Department of Vascular Surgery documented in this encounter Plan of Treatment Upcoming Encounters Date Type Department Care Team (Late st Contact Info) Description 10/26/2023 4:00 PM EDT Office Visit Cardiology at [address] [phone] Jaspreet Kinsey MD [facility] [place] [address] 10/28/2023 9:00 AM EDT Office [place] [address] 10/29/2023 10:00 AM EDT Clinical [place] [address] 10/29/2023 10:15 AM EDT Procedure [place] [address] 11/01/2023 5:00 PM EDT Office [place] [address] Selene Browning, PhD [facility] [place] [address] 11/22/2023 4:40 PM EDT Office Visit Cardiology at [address] [address] Porsha Mcdaniels MD [facility] [place] [address] 12/13/2023 10:00 AM EDT Clinical Support Gastroenterology at [facility] [place] [address] [facility] [place] [place] [address] documented as of this encounter Results * Duplex Study Visceral Arteries, Comp (10/08/2023 8:22 AM EDT) VB Text Report Department: Vascular Surgery Lab Patient: [id number] (LOIDA ROQUE) CPT: [id number] Referring Physician: JUDITH PICKENS ?? Phone: Indications: [...] within mesenteric artery stents may differ from [place] arteries, with thresholds for diagnosis of significant stenosis likely being somewhat higher in stented arteries than [place].% To date, there is no evidence based consensus of stent velocity criteria. Therefore, the current interpretation is based on [place] artery thresholds. Previous Celiac/Mesenteric Studies: Date ? [...] [facility] 10/08/2023 8:22 AM EDT Judith Pickens PROFESSOR OF LITERATURE VASCULAR ORDERABLES [facility] documented in this encounter Visit Diagnoses Diagnosis Mesenteric ischemia Unspecified vascular insufficiency of intestine documented in this encounter Care Teams Certified Physician'S Assistant Relationship Specialty Start Date End Date Polo Pearce PA [address] [place] [address] PCP - General Internal Medicine 06/09/21 documented as of this encounter
--- OUTSIDE RECORDS SUMMARY | 2023-10-22 00:36 | XMS_ITS | Encounter Summary ---
Author Organization [facility] [place] [address] Care Team Providers Care Rn Womens Health Name Role Phone Polo Pearce Primary Care Provider [phone] Reason for Referral * Diagnostic Test (Routine) - Closed Specialty Diagnoses / Procedures Referred By Contac t Referred To Contact Radiology Diagnoses Chest pain, unspecified type Procedures NM PET CT Cardiac Pharmacologic Stress CT Component Porsha Mcdaniels MD [facility] [place] [address] [place] [address] Referral ID Status Reason Start Date Expiration Date V isits Requested Visits Authorized [id number] Closed Specialty Service Requested 08/03/2023 10/01/2023 1 1 * Diagnostic Test (Routine) - Closed Specialty Diagnoses / Procedures Referred By Contac t Referred To Contact Radiology Diagnoses Chest pain, unspecified type Procedures NM PET CT Cardiac Pharmacologic Stress and Rest Porsha Mcdaniels MD [facility] [place] [address] [place] [address] Referral ID Status Reason Start Date Expiration Date V isits Requested Visits Authorized [id number] Closed Specialty Service Requested 08/03/2023 10/01/2023 1 1 * Diagnostic Test (Routine) - New Request Specialty Diagnoses / Procedures Referred By Contac t Referred To Contact Cardiology Diagnoses Chest pain, unspecified type Procedures Nuclear Pharmacologic Stress Cardiology (PET CT Mobile) Porsha Mcdaniels MD [facility] [place] [address] [facility] [place] [address] Referral ID Status Reason Start Date Expiration Date Visits Requested Visits Authorized [id number] New Request Specialty Service Requested 07/29/2023 07/28/2024 1 1 Reason for Visit * Consultation (Routine) - Closed Specialty Diagnoses / Procedures Referred By Contac t Referred To Contact Cardiology Diagnoses Heart failure with preserved ejection fraction, unspecified HF chronicity [place]. thorough evaluation performed to date. Jaspreet Kinsey MD [facility] [place] [address] Porsha Mcdaniels MD [facility] [place] [address] Referral ID Status Reason Start Date Expiration Date V isits Requested Visits Authorized [id number] Closed Consult, Test & Treat 06/09/2023 06/08/2024 1 1 Encounter Details Date Type Department Care Team (Late st Contact Info) Description 07/29/2023 8:00 AM EDT Office Visit Cardiology at [address] [address] Porsha Mcdaniels MD [facility] [place] [address] Chest pain, unspecified type Social History Tobacco [...] from the original note were not included. [facility] [place] [address] Referring Provider: Jaspreet Kinsey MD [facility] [place] [address] Reason for Consultation / Chief Complaint: [place] [...] [place]. She follows with Dr. Kinsey in [place]. She underwent CCTA 09/27 that showed mild disease in her LAD. She also had a cardiac cath in 2019 with normal cors. 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 Moves all extremities without limitation. [...] Porsha Mcdaniels MD Section of Interventional Cardiology [facility] Power Transformer Assemblercustomer service rep [facility] 07/29/2023 documented in this encounter Plan of Treatment Upcoming Encounters Date Type Department Care Team (Late st Contact Info) Description 10/26/2023 4:00 PM EDT Office Visit Cardiology at [address] [place] [address] Jaspreet Kinsey MD [facility] [place] [address] 10/28/2023 9:00 AM EDT Office [place] [address] 10/29/2023 10:00 AM EDT Clinical [place] [address] 10/29/2023 10:15 AM EDT Procedure [place] [address] 11/01/2023 5:00 PM EDT Office Visit [place] [address] Selene Browning, PhD [facility] [place] [address] 11/22/2023 4:40 PM EDT Office Visit Cardiology at [address] [phone] Porsha Mcdaniels MD [facility] [place] [address] 12/13/2023 10:00 AM EDT Clinical Support [place] [phone] [facility] [place] [address] documented as of this encounter Procedures Procedure Name Priority Date/Time Associated Diagnosis Comments EKG 12-LEAD Routine 07/29/2023 8:47 AM EDT Chest pain, unspecified type documented in this encounter Results * NM PET CT Cardiac Pharmacologic Stress CT Component (08/17/2023 2:38 PM EDT) WORKSTATION ID [id number] [facility] Anatomical Region Laterality Modality Positron [...] questions please contact the health child care team lead that requested your imaging first. ? Narrative [...] Coronary calcifications. Bilateral ground glass opacities are [id number] Procedure Note Clay Stanton MD - 08/18/2023 EXAMINATION: NM PET CT CARDIAC PHARMACOLOGIC STRESS AND REST, ND PET CTCARDIAC PHARMACOLOGIC STRESS CT COMPONENT CLINICAL [...] Coronary calcifications. Bilateral ground glass opacities are [id number] IMPRESSION Moderate-sized scar in the apical septum [...] have questions please contactthe health child care team lead that requested your imaging first. Porsha Mcfarlane MD [facility] PET ORDERABLES * ND PET CT Cardiac Pharmacologic Stress and Rest (08/17/2023 2:38 PM EDT) WORKSTATION ID [id number] RAD Anatomical Region Laterality Modality Positron Emissio [...] questions please contact the health child care team lead that requested your imaging first. ? Narrative [...] Coronary calcifications. Bilateral ground glass opacities are [id number] Procedure Note Clay Stanton MD - 08/18/2023 EXAMINATION: NM PET CT CARDIAC PHARMACOLOGIC STRESS AND REST, ND PET CTCARDIAC PHARMACOLOGIC STRESS CT COMPONENT CLINICAL [...] Coronary calcifications. Bilateral ground glass opacities are [id number] IMPRESSION Moderate-sized scar in the apical septum [...] have questions please contactthe health child care team lead that requested your imaging first. Porsha Mcfarlane [...] (Bezet) 418 ms MUSE SYSTEM Calculated P [place] 6 degrees MUSE SYSTEM Calculated R [place] 34 degrees MUSE SYSTEM Calculated T [place] -73 degrees MUSE SYSTEM INTERPRETATION Sinus bradycardia [...] documented in this encounter Care Teams Rn Womens Health Relationship Specialty Start Date End Date Polo Pearce PA [address] [place] [address] PCP - General Internal Medicine 06/09/21 documented as of this encounter
--- OUTSIDE RECORDS SUMMARY | 2023-10-22 00:36 | XMS_ITS | Encounter Summary ---
Author Organization [facility] Address [facility] [place] [address] Care Team Providers Care Field Tech Name Role Phone Polo Pearce Primary Care Provider [phone] Encounter Details Date Type Department Care Team (Latest Contact Info) Description 08/17/2023 Travel Social History Tobacco Use Types Packs/Day Years Used Date Smoking Tobacco: Never Smokeless Tobacco: Never Alcohol Use Standard Drinks/Week Comments Never 0 (1 standard drink = 0.6 oz pur e alcohol) [facility] Utilities Answer Date Recorded In [...] PM EDT Office Visit Cardiology at [address] [address] Jaspreet Kinsey MD [facility] [place] [address] 10/28/2023 9:00 AM EDT Office [place] [address] 10/29/2023 10:00 AM EDT Clinical [place] [address] 10/29/2023 10:15 AM EDT Procedure [place] [address] 11/01/2023 5:00 PM EDT Office [place] [phone] Selene Browning, PhD [facility] [place] [address] 11/22/2023 4:40 PM EDT Office Visit Cardiology at [address] [phone] Porsha Mcdaniels MD [facility] [place] [address] 12/13/2023 10:00 AM EDT Clinical Support Gastroenterology at [facility] [place] [phone] [facility] [place] [address] documented as of this encounter Visit Diagnoses Not on filedocumented in this encounter Care Teams Field Tech Relationship Specialty Start Date End Date Polo Pearce PA [address] [place] [address] PCP - General Internal Medicine 06/09/21 documented as of this encounter
--- OUTSIDE RECORDS SUMMARY | 2023-10-22 00:36 | XMS_ITS | Encounter Summary ---
Author Organization [facility] [place] [address] Care Team Providers Care Fashion Merchandiser Name Role Phone Polo Pearce Primary Care Provider [phone] Reason for Referral * Diagnostic Test (Routine) - New Request Specialty Diagnoses / Procedures Referred By Contjulita t Referred To Contact Cardiology Diagnoses Chest pain, unspecified type Procedures Nuclear Pharmacologic Stress Cardiology (PET CT Mobile) Porsha Mcdaniels MD [facility] [address] [facility] [place] [address] Referral ID Status Reason Start Date Expiration Date Visits Requested Visits Authorized [id number] New Request Specialty Service Requested 07/29/2023 07/28/2024 1 1 Reason for Visit * Diagnostic Test (Routine) - New Request Specialty Diagnoses / Procedures Referred By Contac t Referred To Contact Cardiology Diagnoses Chest pain, unspecified type Procedures Nuclear Pharmacologic Stress Cardiology (PET CT Mobile) Porsha Mcdaniels MD [facility] [address] [facility] [place] [address] Referral ID Status Reason Start Date Expiration Date Visits Requested Visits Authorized [id number] New Request Specialty Service Requested 07/29/2023 07/28/2024 1 1 Encounter Details Date Type Department Care Team (Latest Contact Info) Description 08/17/2023 11:53 AM EDT - 08/17/2023 11:59 PM EDT Hospital Encounter Non-Invasive Cardiology Lab [facility] [address] [facility] [place] [address] Chest pain, unspecified type Discharge Disposition: Home Social History Tobacco Use Types Packs/Day Years Used Date Smoking Tobacco: Never Smokeless Tobacco: Never Alcohol Use Standard Drinks/Week Comments Never 0 (1 standard drink = 0.6 oz pur e alcohol) [facility] Utilities Answer Date Recorded In the past 12 months has th e [employer], gas, oil, or water [employer] threatened to shut off services in your [...] in a correction (including now)? No 06/15/2023 DH IPV Inpatient [...] as needed. fluticasone propionate (FLONASE) 50 mcg/actuation [place], Suspension 1 spray by Each Nare route [...] PM EDT Office Visit Cardiology at [address] [place] [address] Jasp[address] [facility] [place] [address] 10/28/2023 9:00 AM EDT Office Visit [place] [address] 10/29/2023 10:00 AM EDT Clinical Support [place] [address] 10/29/2023 10:15 AM EDT Procedure visit [place] [address] 11/01/2023 5:00 PM EDT Office Visit Gastroenterology at [place] [phone] Selene Browning, PhD [facility] DR PSYCHI[place] [address] 11/22/2023 4:40 PM EDT Office Visit Cardiology at [address] [phone] [facility] [address] 12/13/2023 10:00 AM EDT Clinical Support [place] [phone] [facility] [place] [address] documented as of this encounter Procedures Procedure [...] type documented in this encounter Care Teams Fashion Merchandiser Relationship Specialty Start Date End Date Polo Pearce PA [address] [place] [address] PCP - General Internal Medicine 06/09/21 documented as of this encounter
--- OUTSIDE RECORDS SUMMARY | 2023-10-22 00:36 | XMS_ITS | Encounter Summary ---
Author Organization [facility] Address [facility] [place] [address] Care Team Providers Care Solar System Installer Name Role Phone Polo Pearce Primary Care Provider [phone] Encounter Details Date Type Department Care Team [...] PM EDT Office Visit Cardiology at [address] [address] Jaspreet Kinsey MD [facility] [place] [address] 10/28/2023 9:00 AM EDT Office [place] [address] 10/29/2023 10:00 AM EDT Clinical [place] [address] 10/29/2023 10:15 AM EDT Procedure [place] [address] 11/01/2023 5:00 PM EDT Office Visit [place] [phone] Selene Browning, PhD [facility] [place] [address] 11/22/2023 4:40 PM EDT Office Visit Cardiology at [address] [phone] Porsha Mcdaniels MD [facility] [place] [address] 12/13/2023 10:00 AM EDT Clinical Support Gastroenterology at [facility] [place] [phone] [facility] [place] [address] documented as of this encounter Visit Diagnoses Not on filedocumented in this encounter Care Teams Solar System Installer Relationship Specialty Start Date End Date Polo Pearce PA [address] [place] [address] PCP - General Internal Medicine 06/09/21 documented as of this encounter
--- OUTSIDE RECORDS SUMMARY | 2023-10-22 00:36 | XMS_ITS | Encounter Summary ---
Author Organization [facility] Address [facility] [place] [address] Care Team Providers Care It Program Manager Name Role Phone Polo Pearce Primary Care Provider [phone] Encounter Details Date Type Department Care Team (Latest Contact Info) Description 08/03/2023 Travel Social History Tobacco Use Types Packs/Day Years Used Date Smoking Tobacco: Never Smokeless Tobacco: Never Alcohol Use Standard Drinks/Week Comments Never 0 (1 standard drink = 0.6 oz pur e alcohol) [facility] Utilities Answer Date Recorded In [...] PM EDT Office Visit Cardiology at [address] [address] Jaspreet Kinsey MD [facility] [place] [address] 10/28/2023 9:00 AM EDT Office [place] [address] 10/29/2023 10:00 AM EDT Clinical [place] [address] 10/29/2023 10:15 AM EDT Procedure [place] [address] 11/01/2023 5:00 PM EDT Office Visit [place] [phone] Selene Browning, PhD [facility] [place] [address] 11/22/2023 4:40 PM EDT Office Visit Cardiology at [address] [phone] Porsha Mcdaniels MD [facility] [place] [address] 12/13/2023 10:00 AM EDT Clinical Support Gastroenterology at [facility] [place] [phone] [facility] [place] [address] documented as of this encounter Visit Diagnoses Not on filedocumented in this encounter Care Teams It Program Manager Relationship Specialty Start Date End Date Polo Pearce PA [address] [place] [address] PCP - General Internal Medicine 06/09/21 documented as of this encounter
--- OUTSIDE RECORDS SUMMARY | 2023-10-22 00:36 | XMS_ITS | Encounter Summary ---
Author Organization [facility] Address [facility] [place] [address] Care Team Providers Care Garnett Mechanic Name Role Phone Polo Pearce Primary Care Provider [phone] Reason for Visit * Reason Comments Congestive Heart Failure Atrial Fibrillation Encounter Details Date Type Department Care Team (Late st Contact Info) Description 07/26/2023 3:20 PM EDT Office Visit Cardiology at [address] [address] Jaspreet Kinsey MD [facility] [address] Heart failure with preserved ejection fraction, unspecified HF chronicity; Paroxysmal atrial fibrillation; SVT (supraventricular tachycardia); Chest pain, unspecified type Social History Tobacco Use Types Packs/Day Years Used Date Smoking Tobacco: Never Smokeless Tobacco: Never Alcohol Use Standard Drinks/Week Comments Never 0 (1 standard drink = 0.6 oz pur e alcohol) [facility] Utilities Answer Date Recorded In the [...] Failure Atrial Fibrillation HPI Last seen by ia 05/2023, at which time the comprehensive cardiac [...] Oral, DAILY fluticasone propionate (FLONASE) 50 mcg/actuation [place], Suspension 1 spray, Each Nare, PRN gabapentin [...] ejection fraction 05/2021: subacute, presented to [facility] with [...] sarcoid. Anterior scar pattern 06/2023: Admission at [facility] ([facility]). TTE with low-normal EF, though anterior [...] PM EDT Office Visit Cardiology at [address] [address] Jaspreet Kinsey MD [facility] [place] [address] 10/28/2023 9:00 AM EDT Office [place] [address] 10/29/2023 10:00 AM EDT Clinical [place] [address] 10/29/2023 10:15 AM EDT Procedure [place] [address] 11/01/2023 5:00 PM EDT Office Visit [place] [address] Selene Browning, PhD [facility] [address] 11/22/2023 4:40 PM EDT Office Visit Cardiology at [address] [phone] Porsha Mcdaniels MD [facility] [place] [address] 12/13/2023 10:00 AM EDT Clinical Support [place] [phone] [facility] [place] [address] documented as of this encounter Visit Diagnoses Diagnosis Heart failure with preserved ejection fraction, unspecified HF chronicity Paroxysmal atrial fibrillation Atrial fibrillation SVT (supraventricular tachycardia) Other specified cardiac dysrhythmias Chest pain, unspecified type documented in this encounter Care Teams Garnett Mechanic Relationship Specialty Start Date End Date Polo Pearce PA [address] [place] [address] PCP - General Internal Medicine 06/09/21 documented as of this encounter
--- OUTSIDE RECORDS SUMMARY | 2023-10-22 00:36 | XMS_ITS | Encounter Summary ---
Author Organization [facility] [place] [address] Care Team Providers Care Beveling And Edging Machine Operator Name Role Phone Polo Pearce Primary Care Provider [phone] Encounter Details Date Type Department Care Team (Late st Contact Info) Description 07/13/2023 Telephone Cardiology at [address] [phone] Sydney Gamez RN Social History Tobacco Use [...] in a prison (including now)? No 06/15/2023 DH IPV Inpatient [...] like the [email or web address] when completed. Will forward to her providers [...] appointments: During 8am-5pm Wednesday through Wednesday call [phone] to speak with a nurse in the cardiology clinic All other times call [phone] and ask to speak to the permit specialist sanitation laborer. Return to work: One week Driving: No driving for 48 hours after catheterization. Follow up Appointments: PCP JOCY Franco [phone] 11:30am on July 19. Cardiology office will [...] PM EDT Office Visit Cardiology at [address] [phone] Jaspreet Kinsey MD [facility] [place] [address] 10/28/2023 9:00 AM EDT Office [place] [address] 10/29/2023 10:00 AM EDT Clinical [place] [address] 10/29/2023 10:15 AM EDT Procedure [place] [address] 11/01/2023 5:00 PM EDT Office [place] [phone] Selene Browning, PhD [facility] [place] [address] 11/22/2023 4:40 PM EDT Office Visit Cardiology at [address] [phone] Porsha Mcdaniels MD [facility] [place] [place] [address] 12/13/2023 10:00 AM EDT Clinical [place] [phone] [facility] [place] [address] documented as of this encounter Visit Diagnoses Not on filedocumented in this encounter Care Teams Beveling And Edging Machine Operator Relationship Specialty Start Date End Date Polo Pearce PA [address] [place] [address] PCP - General Internal Medicine 06/09/21 documented as of this encounter
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
--- OUTSIDE RECORDS SUMMARY | 2023-10-22 00:36 | XMS_ITS | Encounter Summary ---
Author Organization [facility] Address [facility] [place] [address] Care Team Providers Care Wellness Instructor Name Role Phone Polo Pearce Primary Care Provider [phone] Encounter Details Date Type Department Care Team (Latest Contact Info) Description 08/25/2023 Travel Social History Tobacco Use Types Packs/Day Years Used Date Smoking Tobacco: Never Smokeless Tobacco: Never Alcohol Use Standard Drinks/Week Comments Never 0 (1 standard drink = 0.6 oz pur e alcohol) [facility] Utilities Answer Date Recorded [...] PM EDT Office Visit Cardiology at [address] [address] Jaspreet Kinsey MD [facility] [place] [address] 10/28/2023 9:00 AM EDT Office [place] [address] 10/29/2023 10:00 AM EDT Clinical [place] [address] 10/29/2023 10:15 AM EDT Procedure [place] [address] 11/01/2023 5:00 PM EDT Office [place] [phone] Selene Browning, PhD [facility] [place] [address] 11/22/2023 4:40 PM EDT Office Visit Cardiology at [address] [phone] Porsha Mcdaniels MD [facility] [place] [address] 12/13/2023 10:00 AM EDT Clinical Support Gastroenterology at [facility] [place] [phone] [facility] [place] [address] documented as of this encounter Visit Diagnoses Not on filedocumented in this encounter Care Teams Wellness Instructor Relationship Specialty Start Date End Date Polo Pearce PA [address] [place] [address] PCP - General Internal Medicine 06/09/21 documented as of this encounter
--- OUTSIDE RECORDS SUMMARY | 2023-10-22 00:36 | XMS_ITS | Encounter Summary ---
[place] [address] Care Team Providers Care Signal Operator Name Role Phone Polo Pearce Primary Care Provider [phone] Reason for Visit * Auth/Cert (Routine) Specialty Diagnoses / Procedures Referred By Jayant harris Referred To Contact Diagnoses NSTEMI (non-ST elevated myocardial infarction) NSTEMI Procedures EMERGENCY [place] [address] [facility] Referral ID Status Reason Start Date Expiration Date Visits Re quested Visits Authorized [id number] 1 1 Encounter Details Date Type Department Care Team (Latest Contact Info) Description 08/25/2023 1:05 PM EDT Laboratory Appointment Lab [address] [place] [phone] Heart failure with preserved ejection fraction, unspecified [...] Recorded In the past 12 months has [employer] electric, gas, oil, or water company threatened [...] PM EDT Office Visit Cardiology at [address] [address] Jaspreet Kinsey MD [facility] [place] [address] 10/28/2023 9:00 AM EDT Office [place] [address] 10/29/2023 10:00 AM EDT Clinical [place] [address] 10/29/2023 10:15 AM EDT Procedure [place] [address] 11/01/2023 5:00 PM EDT Office Visit [place] [phone] Selene Browning, PhD [facility] [place] [address] 11/22/2023 4:40 PM EDT Office Visit Cardiology at [address] [phone] Porsha Mcdaniels MD [facility] [place] [address] 12/13/2023 10:00 AM EDT Clinical Support [place] [address] [facility] [place] [address] documented as of this encounter Procedures Procedure [...] unspecified HF chronicity HC DNA AB DS (BEAVER) Routine 08/25/2023 11:28 AM EDT Heart failure [...] Agency Comment Spec In Lab Mary Reyes [employer]NAG[employer] OFFICER CHEMISTRY ORDERABL ES [facility] [place] [address] * IgG (08/25/2023 11:28 AM EDT) Immunoglobulin G 1,114 700 - 1,600 mg/dL [facility] Comment: Pediatric Reference Intervals obtained from the Caliper Reference Interval project. http://www.sickkids.ca/caliperproject/index.html Blood 08/25/2023 11:2 8 AM EDT 08/25/2023 11:37 AM EDT Narrative Resulting Agency Comment Spec In Lab Mary Reyes APRN CHEMISTRY ORDERABL ES Performing Organization Address [facility] Co de Phone Number [facility] [place] [address] * Tissue transglutaminase, IgA (08/25/2023 11:28 AM EDT) Pathologist [facility] TTG IgA Ab 0.6 <=10.0 u/ml [facility] Comment: Negative: ??<7 units/mL Indeterminate: 7-10 units/mL Positive: ??>10 units/mL Blood 08/25/2023 11:2 8 AM EDT 08/26/2023 7:26 AM EDT Narrative Resulting Agency Comment Spec In Lab Mary Reyes APRN IMMUNOLOGY ORDERAB LES Performing Organization Address City/[facility]/ZIP Co de Phone Number [facility] [place] [address] * (ABNORMAL) Basic Metabolic Panel (non-fasting) (08/25/2023 11:28 AM EDT) [facility] Glucose 111 65 - 199 mg/dL [facility] Comment:Diabetes: >=200 mg/d L plus symptoms Blood Urea Nitrogen 29(H) 8 - 18 mg/dL [facility] [...] mmol/L [facility] Carbon Dioxide 29 22 - 31 mmol/L [facility] Anion Gap 12 5 - 15 mmol/L [facility] Calcium 10.0 8.5 - 10.5 mg/dL [facility] Est Glomerular Filtration Rate 44(L) >=60 mL/min/1. 73 m?? [facility] [...] In Lab Lloyd Keating MD CHEMISTRY ORDERABLES [facility] [place] [address] * KATHRINE Antibody Screen (08/25/2023 11:28 AM EDT) KATHRINE Ab Screen Negative Negative [facility] Comment: This antinuclear antibody (KATHRINE) screen is a qualitative test performed using a fluoroenzyme immunoassay on the TourRadara 250 analyzer. This screen is designed to detect antibodies to U1RNP, SS-A/Ro, SS-B/La, centromere B, Scl-70, Dasia-1, and Sm(Alcantar) proteins in serum samples. Antibodies to other nuclear antibodies will not be detected with this assay. This KATHRINE screen is also performed in concert with a quantitative for IgG antibodies to dsDNA. dsDNA Ab 1.0 <=15.0 IU/mL [facility] Comment: <10 negative 10-15 equivocal >15 positive This dsDNA antibody result was generated using a fluoroenzyme immunoassay on the TourRadara 250 analyzer. This quantitative test is designed to detect IgG antibodies directed against double stranded DNA in human serum. The presence of antibodies that recognize dsDNA is a highly specific marker for systemic lupus erythematosus. Please note that as of 12/30/2021 that this testing is performed by the Special Chemistry Laboratory at [facility]. This change in testing location is associated with a change is testing method and reference intervals. Please review the results of this test in association with the posted reference intervals. Blood 08/25/2023 11:2 8 AM EDT 08/26/2023 7:26 AM EDT Narrative Resulting Agency Comment Spec In Lab Jaspreet Kinsey MD LAB SEND OUT ORDERAB LES Performing Organization Address City/[facility]/ZIP Co de Phone Number [facility] [place] [address] * (ABNORMAL) Protein Electrophoresis, serum (08/25/2023 11:28 AM EDT) Pathologist [facility] Total Prot Electrophoresis 7.5 6.1 - 8.0 g/dL [facility] Albumin Electrophoresis 4.62 3.20 - 5.20 g/dL [facility] Alpha 1 Globulin 0.20 0.10 - 0.30 g/dL [facility] Alpha 2 Globulin 0.92(H) 0.40 - 0.90 g/dL [facility] Beta Globulin 0.89 0.50 - 1.00 g/dL [facility] Gamma Globulin 0.88 0.50 - 1.30 g/dL [facility] M1 Band None Detected None Detected [facility] Blood 08/25/2023 11:2 8 AM EDT 08/25/2023 11:37 AM EDT Narrative Resulting Agency Comment Spec In Lab Jaspreet Kinsey MD CHEMISTRY ORDERABLES Performing Organization Address [facility]/ZIP Co de Phone Number [facility] [place] [address] * (ABNORMAL) Free Light Chains, Serum (08/25/2023 11:28 AM EDT) [place] Free Light Chain 3.09(H) 0.72 - 2.75 mg/dL [facility] Lambda Free Light Chain 1.65 0.57 - 2.15 mg/dL [facility] [place]/Lambda FLC Ratio 1.8727 0.4000 - 2.5800 [facility] Blood 08/25/2023 11:2 8 AM EDT 08/25/2023 11:36 AM EDT Narrative Resulting Agency Comment Spec In Lab Jaspreet Kinsey MD CHEMISTRY ORDERABLES Performing Organization Address City/[facility]/ZIP Co de Phone Number [facility] [place] [address] * Iron and TIBC (08/25/2023 11:28 AM EDT) Iron 113 30 - 150 mcg/dL [facility] TIBC 338 250 - 450 mcg/dL [facility] Iron Saturation 33 20 - 50 % [facility] Blood 08/25/2023 11:2 8 AM EDT 08/25/2023 11:36 AM EDT Narrative Resulting Agency Comment Spec In Lab Jaspreet Kinsey MD CHEMISTRY ORDERABLES Performing Organization Address City/[facility]/ZIP Co de Phone Number [facility] [place] [address] * Ferritin (08/25/2023 11:28 AM EDT) Ferritin 110 11 - 328 ng/mL [facility] Comment: Please note that as of 02/10/2023, the reference intervals for Ferritin have been updated. Blood 08/25/2023 11:2 8 AM EDT 08/25/2023 11:37 AM EDT Narrative Resulting Agency Comment Spec In Lab Jaspreet Kinsey MD CHEMISTRY ORDERABLES Performing Organization Address City/[facility]/ZIP Co de Phone Number [facility] [place] [address] * Lyme IgG & IgM Antibody (08/25/2023 11:28 AM EDT) Pathologist [facility] Lyme Antibody Negative Negative [facility] Lyme Ab Comment Negative result does not exclude possibility of infection. [facility] Comment: Please note that as of 07/14/2022 that this testing is performed by the Special Chemistry Laboratory at [facility]. This change in testing location is associated with a change in testing methodology. Blood 08/25/2023 11:2 8 AM EDT 08/26/2023 7:26 AM EDT Narrative Resulting Agency Comment Spec In Lab Jaspreet Kinsey MD IMMUNOLOGY ORDERABLE S Performing Organization Address City/[facility] Co de Phone Number [facility] [place] [address] * Streptococcal Antibody Panel (08/25/2023 11:28 AM EDT) Pathologist [facility] Aso Titer (JULY) 25 0 - 530 IU/mL [facility] Comment: Test Performed by: [facility] [place] [address] Die Try Out Worker: Nellie Haney Ph.D.; CLIA# [id number] Dnase B Ab (JULY) 146 0 - 300 unit/mL [facility] Comment: Test Performed by: [facility] [place] [place] [address] Die Try Out Worker: Nellie Haney Ph.D.; CLIA# [id number] Blood 08/25/2023 11:2 8 AM EDT 08/25/2023 1:02 PM EDT Narrative Resulting Agency Comment Spec In Lab Jaspreet Kinsey MD LAB SEND OUT ORDERAB LES Performing Organization Address City/[facility]/ZIP Co de Phone Number [facility] [place] [address] documented in this encounter Visit Diagnoses Diagnosis Heart failure with preserved ejection fraction, unspecified HF chronicity Chronic kidney disease, unspecified CKD stage Altered bowel function Other symptoms involving digestive system Depression, unspecified depression type documented in this encounter Care Teams Signal Operator Relationship Specialty Start Date End Date Polo Pearce PA [address] [place] [address] PCP - General Internal Medicine 06/09/21 documented as of this encounter
--- OUTSIDE RECORDS SUMMARY | 2023-10-22 00:36 | XMS_ITS | Encounter Summary ---
Author Organization [facility] [place] [address] Care Team Providers Care Lead Applications Developer Name Role Phone Polo Pearce Primary Care Provider [phone] Encounter Details Date Type Department Care Team (Late st Contact Info) Description 08/28/2023 [place] [phone] [place] [address] Social History Tobacco Use Types Packs/Day Years Used Date Smoking Tobacco: Never Smokeless Tobacco: Never Alcohol Use Standard Drinks/Week Comments Never 0 (1 standard drink = 0.6 oz pur e alcohol) [facility] Utilities Answer Date Recorded In the past 12 months has [employer], gas, oil, or water [employer] threatened to shut off services in [...] a slight decrease in LV systolic function. [facility] 04/2023 Coronary Angiography: Dominance: Right Left [...] PM EDT Office Visit Cardiology at [address] [address] Jaspreet Kinsey MD [facility] [address] 10/28/2023 9:00 AM EDT Office [place] [address] 10/29/2023 10:00 AM EDT Clinical [place] [address] 10/29/2023 10:15 AM EDT Procedure [place] [address] 11/01/2023 5:00 PM EDT Office [place] [phone] Selene Browning, PhD [facility] [place] [address] 11/22/2023 4:40 PM EDT Office Visit Cardiology at [address] [phone] Porsha Mcdaniels MD [facility] [place] [address] 12/13/2023 10:00 AM EDT Clinical [place] [address] [facility] [place] [address] documented as of this encounter Visit Diagnoses Not on filedocumented in this encounter Care Teams Lead Applications Developer Relationship Specialty Start Date End Date Polo Pearce PA [address] [place] [address] PCP - General Internal Medicine 06/09/21 documented as of this encounter
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
--- OUTSIDE RECORDS SUMMARY | 2023-10-22 00:36 | XMS_ITS | Encounter Summary ---
Author Organization [facility] Address [facility] [place] [address] Care Team Providers Care Mural Artist Name Role Phone Polo Pearce Primary Care Provider [phone] Encounter Details Date Type Department Care Team [...] PM EDT Office Visit Cardiology at [address] [phone] Jaspreet Kinsey MD [facility] [place] [address] 10/28/2023 9:00 AM EDT Office [place] [address] 10/29/2023 10:00 AM EDT Clinical [place] [address] 10/29/2023 10:15 AM EDT Procedure [place] [address] 11/01/2023 5:00 PM EDT Office Visit [place] [phone] Selene Browning, PhD [facility] [place] [address] 11/22/2023 4:40 PM EDT Office Visit Cardiology at [address] [phone] Porsha Mcdaniels MD [facility] [place] [address] 12/13/2023 10:00 AM EDT Clinical Support Gastroenterology at [facility] [place] [phone] [facility] [place] [address] documented as of this encounter Visit Diagnoses Not on filedocumented in this encounter Care Teams Mural Artist Relationship Specialty Start Date End Date Polo Pearce PA [address] [place] [address] PCP - General Internal Medicine 06/09/21 documented as of this encounter
--- OUTSIDE RECORDS SUMMARY | 2023-10-22 00:36 | XMS_ITS | Encounter Summary ---
Author Organization [facility] [place] [address] Care Team Providers Care Diaper Folder Name Role Phone Polo Pearce Primary Care Provider [phone] Reason for Referral * Diagnostic Test (Routine) - Closed Specialty Diagnoses / Procedures Referred By Contac t Referred To Contact Radiology Diagnoses Chest pain, unspecified type Procedures NM PET CT Cardiac Pharmacologic Stress CT Component Porsha Mcdaniels MD [facility] [place] [address] [place] [address] Referral ID Status Reason Start Date Expiration Date V isits Requested Visits Authorized [id number] Closed Specialty Service Requested 08/03/2023 10/01/2023 1 1 * Diagnostic Test (Routine) - Closed Specialty Diagnoses / Procedures Referred By Contac t Referred To Contact Radiology Diagnoses Chest pain, unspecified type Procedures NM PET CT Cardiac Pharmacologic Stress and Rest Porsha Mcdaniels MD [facility] [place] [address] [place] [address] Referral ID Status Reason Start Date Expiration Date V isits Requested Visits Authorized [id number] Closed Specialty Service Requested 08/03/2023 10/01/2023 1 1 Reason for Visit * Diagnostic Test (Routine) - Closed Specialty Diagnoses / Procedures Referred By Contac t Referred To Contact Radiology Diagnoses Chest pain, unspecified type Procedures NM PET CT Cardiac Pharmacologic Stress and Rest Porsha Mcdaniels MD [facility] [place] [address] [place] [address] Referral ID Status Reason Start Date Expiration Date V isits Requested Visits Authorized [id number] Closed Specialty Service Requested 08/03/2023 10/01/2023 1 1 Encounter Details Date Type Department Care Team (Latest Contact Info) Description 08/17/2023 11:52 AM EDT Hospital Encounter [place] [address] Porsha Mcdaniels MD [facility] [place] [address] Chest pain, unspecified type Discharge Disposition: Home Social History Tobacco Use Types Packs/Day Years Used Date Smoking Tobacco: Never Smokeless Tobacco: Never Alcohol Use Standard Drinks/Week Comments Never 0 (1 standard drink = 0.6 oz pur e alcohol) [facility] Utilities Answer Date Recorded In the past 12 months has [employer], gas, oil, or water company threatened [...] as needed. fluticasone propionate (FLONASE) 50 mcg/actuation [place], Suspension 1 spray by Each Nare route [...] PM EDT Office Visit Cardiology at [address] [place] [address] Jaspreet Kinsey MD [facility] [place] [address] 10/28/2023 9:00 AM EDT Office [place] [address] 10/29/2023 10:00 AM EDT Clinical [place] [address] 10/29/2023 10:15 AM EDT Procedure [place] [address] 11/01/2023 5:00 PM EDT Office [place] [phone] Selene Browning, PhD [facility] [place] [address] 11/22/2023 4:40 PM EDT Office Visit Cardiology at [address] [phone] Porsha Mcdaniels MD [facility] [place] [address] 12/13/2023 10:00 AM EDT Clinical [place] [phone] [facility] [place] [address] documented as of this encounter Procedures Procedure Name Priority Date/Time Associated Diagnosis Comments NM PET CT CARDIAC PHARMACOLOGIC STRESS CT COMPONENT Routine 08/17/2023 2:38 PM EDT Chest pain, unspecified type NM PET CT CARDIAC PHARMACOLOGIC STRESS Routine 08/17/2023 2:38 PM EDT Chest pain, unspecified type documented in this encounter Results * NM PET CT Cardiac Pharmacologic Stress CT Component (08/17/2023 2:38 PM EDT) [employer] WORKSTATION ID [id number] RAD Anatomical Region Laterality Modality Positron Emissio [...] questions please contact the health patient care coordinator that requested your imaging first. [...] Coronary calcifications. Bilateral ground glass opacities are [id number] Procedure Note Clay Stanton MD - 08/18/2023 [...] Coronary calcifications. Bilateral ground glass opacities are [id number] IMPRESSION Moderate-sized scar in the apical septum [...] have questions please contactthe health patient care coordinator that requested your imaging first. Porsha Mcfarlane MD IMG PET ORDERABLES * NM PET CT Cardiac Pharmacologic Stress and Rest (08/17/2023 2:38 PM EDT) WORKSTATION ID [id number] [facility] Anatomical Region Laterality Modality Positron Emissio [...] questions please contact the health patient care coordinator that requested your imaging first. [...] Coronary calcifications. Bilateral ground glass opacities are [id number] Procedure Note Clay Stanton MD - 08/18/2023 [...] Coronary calcifications. Bilateral ground glass opacities are [id number] IMPRESSION Moderate-sized scar in the apical septum [...] have questions please contactthe health patient care coordinator that requested your imaging first. Porsha [...] Arm documented in this encounter Care Teams Diaper Folder Relationship Specialty Start Date End Date Polo Pearce PA [address] [place] [address] PCP - General Internal Medicine 06/09/21 documented as of this encounter
--- OUTSIDE RECORDS SUMMARY | 2023-10-22 00:36 | XMS_ITS | Encounter Summary ---
Author Organization [facility] [place] [address] Care Team Providers Care Fisher Lampara Net Name Role Phone Polo Pearce Primary Care Provider [phone] Encounter Details Date Type Department Care Team (Late st Contact Info) Description 08/28/2023 [place] [phone] Social History Tobacco Use Types Packs/Day Years [...] in a assisted (including now)? No 08/30/2023 IPV Inpatient Questions [...] PM EDT Office Visit Cardiology at [address] [address] Jaspreet Kinsey MD [facility] [place] [address] 10/28/2023 9:00 AM EDT Office [place] [address] 10/29/2023 10:00 AM EDT Clinical [place] [address] 10/29/2023 10:15 AM EDT Procedure [place] [address] 11/01/2023 5:00 PM EDT Office Visit Gastroenterology at [place] [phone] Selene Browning, PhD [facility] [place] [address] 11/22/2023 4:40 PM EDT Office Visit Cardiology at [place] [phone] Porsha Mcdaniels MD [facility] [place] [address] 12/13/2023 10:00 AM EDT Clinical Support [place] [address] [facility] [place] [address] documented as of this encounter Procedures Procedure Name Priority Date/Time Associated Diagnosis Comments ECG SCAN Routine 08/28/2023 11:53 AM EDT documented in this encounter Results * Scan Doc: ECG (08/28/2023 11:53 AM EDT) Historical Provider MD FLEMING MGTalia SCAN EX T ORDR/RSLT documented in this encounter Visit Diagnoses Not on filedocumented in this encounter Care Teams Fisher Lampara Net Relationship Specialty Start Date End Date Polo Pearce PA [address] [place] [address] PCP - General Internal Medicine 06/09/21 documented as of this encounter
--- OUTSIDE RECORDS SUMMARY | 2023-10-22 00:36 | XMS_ITS | Encounter Summary ---
Author Organization [facility] Address [facility] [place] [address] Care Team Providers Care Housing Management Officer Name Role Phone Polo Pearce Primary Care Provider [phone] Encounter Details Date Type Department Care Team (Late st Contact Info) Description 07/12/2023 Refill Cardiology at [address] [place] [phone] Jaspreet Kinsey MD [facility] [place] [address] Social History Tobacco Use Types Packs/Day Years Used Date Smoking Tobacco: Never Smokeless Tobacco: Never Alcohol Use Standard Drinks/Week Comments Never 0 (1 standard drink = 0.6 oz pur e alcohol) [facility] Utilities Answer Date Recorded In the past 12 months has [employer] gas, oil, or water [employer] threatened to shut off services in your [...] mg., 2-2x daily, none left. Patient uses [facility] in [place], [place]. She can be reached @ [phone]. documented in this encounter Plan of Treatment Upcoming Encounters Date Type Department Care Team (Late st Contact Info) Description 10/26/2023 4:00 PM EDT Office Visit Cardiology at [address] [place] [address] Jaspreet Kinsey MD [facility] [place] [address] 10/28/2023 9:00 AM EDT Office [place] [address] 10/29/2023 10:00 AM EDT Clinical [place] [address] 10/29/2023 10:15 AM EDT Procedure [place] [address] 11/01/2023 5:00 PM EDT Office Visit [place] [address] Selene Browning, PhD [facility] [place] [address] 11/22/2023 4:40 PM EDT Office Visit Cardiology at [address] [address] Porsha Mcdaniels MD [facility] [place] [address] 12/13/2023 10:00 AM EDT Clinical [place] [address] Lucero Romero, RD [facility] [place] [address] documented as of this encounter Visit Diagnoses Diagnosis Heart failure with preserved ejection fraction, unspecified HF chronicity documented in this encounter Care Teams Housing Management Officer Relationship Specialty Start Date End Date Polo Pearce PA [address] [place] [address] PCP - General Internal Medicine 06/09/21 documented as of this encounter
--- OUTSIDE RECORDS SUMMARY | 2023-10-22 00:38 | XMS_ITS | Encounter Summary ---
[place] [address] Care Team Providers Care Frame Stripper And Crusher Name Role Phone Polo Pearce Primary Care Provider [phone] Reason for Visit * Auth/Cert (Routine) Specialty Diagnoses / Procedures Referred By Jayant t Referred To Contact Diagnoses NSTEMI (non-ST elevated myocardial infarction) NSTEMI Procedures ER Lloyd Pantoja MD [facility] [place] [address] [facility] Referral ID Status Reason Start Date Expiration Date Visits Re quested Visits Authorized [id number] 1 1 Encounter Details Date Type Department Care Team (Late st Contact Info) Description 07/07/2023 2:05 PM EDT Anesthesia [place] [address] Constantine Velez MD [facility] [place] [address] Anesthesia Record Procedure Summary Procedure Name Responsible [...] Recorded In the past 12 months has [employer], gas, oil, or water [employer] threatened to shut off services in your [...] Procedure Summary Date: 07/07/23 Room / Location: [facility] ENDO 5 / [facility]OSCOPY Anesthesia Start: 1405 Anesthesia Stop: 1511 Procedures: EGD WITH BIOPSY (WRVU 2.39) (Trunk) COLONOSCOPY FLEXIBLE, WITH BX (WRVU 3.56) (Trunk) Diagnosis: (post prandial pain) Surgeons: Lashonda Villa MD Responsible Provider: Constantine Velez MD Anesthesia Type: general ASA Status: 4 All Anesthesia Providers: Anesthesiologist: Constantine Velez MD AUTOMOTIVE STARTER REPAIRER: Darío Barlow CRNA Flat Drier: Lawrence Lopez MD Vitals Value Taken Time BP 96/51 07/07/23 1530 Temp Pulse Resp SpO2 100 % 07/07/23 1537 Pain Level 1 07/07/23 1510 Vitals shown include unfiled device data. Patient Location: PACU/FLP Level of Consciousness: Awake and Alert Pain [...] PM EDT Office Visit Cardiology at [address] [address] Jaspreet Kinsey MD [facility] [place] [address] 10/28/2023 9:00 AM EDT Office [place] [address] 10/29/2023 10:00 AM EDT Clinical [place] [address] 10/29/2023 10:15 AM EDT Procedure [place] [address] 11/01/2023 5:00 PM EDT Office Visit [place] [address] Selene Browning, PhD [facility] [place] [address] 11/22/2023 4:40 PM EDT Office Visit Cardiology at [address] [phone] Porsha Mcdaniels MD [facility] [place] [address] 12/13/2023 10:00 AM EDT Clinical Support Gastroenterology at [facility] [phone] [address] [facility] [place] [address] documented as of this encounter Visit Diagnoses [...] mg documented in this encounter Care Teams Frame Stripper And Crusher Relationship Specialty Start Date End Date Polo Pearce PA [address] [place] [address] PCP - General Internal Medicine 06/09/21 documented as of this encounter
--- OUTSIDE RECORDS SUMMARY | 2023-10-22 00:38 | XMS_ITS | Encounter Summary ---
Author Organization [facility] [place] [address] Care Team Providers Care Linoleum Mechanic Name Role Phone Polo Pearce Primary Care Provider [phone] Reason for Referral * Consultation (Routine) - Duplicate Referral Specialty Diagnoses / Procedures Referred By Jayant harris Referred To Contact Gastroenterology Diagnoses Mesenteric artery stenosis Terrence Keating MD [facility] [place] [address] [place] [address] [facility] [place] [address] [place] [address] Referral ID Status Reason Start Date Expiration Date Visits Requested Visits Authorized [id number] Duplicate Referral Consult, Test & Treat 07/09/2023 07/08/2024 1 1 * Home Health Care (Routine) - Authorized Specialty Diagnoses / Procedures Referred By Contjulita t Referred To Contact Diagnoses Paroxysmal atrial fibrillation Chest pain, unspecified type Heart failure with preserved ejection fraction, unspecified HF chronicity Terrence Keating MD [facility] [place] [address] Home Health & [address] [place] [address] Referral ID Status Reason Start Date Expiration Date Visits Requested Visits Authorized [id number] Authorized Consult, Test & Treat 07/09/2023 01/05/2024 999 999 Reason for Visit * Auth/Cert (Routine) Specialty Diagnoses / Procedures Referred By Contac t Referred To Contact Diagnoses NSTEMI (non-ST elevated myocardial infarction) NSTEMI Procedures ER IPI Terrence Keating MD [facility] [address] [facility] Referral ID Status Reason Start Date Expiration Date Visits Re quested Visits Authorized [id number] 1 1 Encounter Details Date Type Department Care Team (Latest Contact Info) Description 06/14/2023 11:01 PM EDT - 07/09/2023 4:44 PM EDT Hospital Encounter Heart and Vascular Unit Level 4 [place] [address] Jaspreet Kinsey MD [facility] [place] [place] [address] Lino Calles MD [facility] [place] [address] [place] [address] Eufemia Copeland MD [facility] [place] [address] [place] [address] Ailyn Irvin MD [facility] [place] [address] [place] [address] Terrence Keating MD [facility] [place] [address] Paroxysmal atrial fibrillation; Chest pain, unspecified type; [...] Loida Roque Patient Age: 53 y.o. Language: Comoran Race: White Ethnicity: Not nor Admit date: 06/14/2023 Discharge date and time: 07/09/2023 3:31 PM Attending Physician: Terrence Keating MD Discharge Physician: Terrence Keating MD Follow-up Recommendations for Providers: Inpatient Provider Contact Information: For questions regarding this document or issues relating to this hospitalization on the Medical Service, please contact your inpatient physician through the [facility] Inbound Sales Manager . Issues afterhours and on weekends [...] who have questions please contact the health cna caregiver that requested your imaging first. Electronically signed by: Wilton Cabrera MD, [facility] ([phone]), at 06/17/2023 5:[address] Abdomen & [...] who have questions please contact the health cna caregiver that requested your imaging first. Electronically signed by: RONDA DUFFY MD, [facility] ([phone]), at 06/22/2023 7:59 AM XR Chest One [...] who have questions please contact the health cna caregiver that requested your imaging first. Electronically signed by: Itz Hayward MD, [facility] ([phone]), at 06/22/2023 11:47 AM US Abdomen Limited (Exam End: 06/28/2023 12:22 PM) Result Value WORKSTATION ID [id number] Narrative Abdominal (Signed Final 06/28/2023 02:08 pm) PATIENT INFO: ID #: [id number] : [birth year] (53 yrs)(F) Name: LOIDA Visit Date: 06/28/2023 12:20 pm ROHAN PERFORMED BY: Attending: Sigrid Owens MD Resident: Rafaela Huddleston MD Performed By: Deena Cabrera RDMS Referred By: AILYN IRVIN Location: [place] SERVICE(S) PROVIDED: UABDLIM - Abdominal Limited Survey Single 66120 Organ or Quadrant - [id number] INDICATIONS: RUQ pain, R/o Gall bladder colic, [...] signed by: Sigrid Owens MD, [facility] ([phone]), at 06/28/2023 2:02 PM Thank you for letting us participate in the care of this patient. If you are a health care provider and have any questions regarding this report, please contact the number above. For patients who have questions, please contact the health cna caregiver that requested your imaging first. Sigrid Owens, [facility] Community Case Manager Electronically Signed Final Report 06/28/2023 02:08 [...] anesthetic: 10 cc 1% lidocaine Heparin: Yes 33619 Units Protamine: No mg Antibiotics: Ancef Fluoro [...] We exchanged the sheath for a 7 [place] personal injury legal assistant steerable sheath over a stiff wire. A Glidewire and Kumpe catheter were used to selectively cannulate the superior mesenteric artery. Direct angiography of the superior mesenteric artery was performed, confirming the results of the nonselective aortography performed. The lesion was predilated with a 4 mm x 40 mm [place] balloon, and then a 6 mm X [...] 07/03/2023 3:18 PM) Result Value WORKSTATION ID [id number] Narrative EXAMINATION: XR CHEST ONE VIEW CLINICAL [...] who have questions please contact the health cna caregiver that requested your imaging first. Electronically signed by: Itz Hayward MD, [facility] ([phone]), at 07/03/2023 3:27 PM Echocardiogram from 06/22/2023 [...] pain. The patient was recently admitted at [facility] from 04/16/23 to 04/19/2023 as a transfer from [facility] due to exertional chest pressure and [...] etiology, patient was accepted for transfer to [facility]. Brief Summary: Loida Roque is a 53 [...] with positive cardiac markers. Patient transferred to [facility] for further work-up and evaluation. On arrival, [...] Administered Date(s) Administered Moderna Covid-19 Monovalent 12Yr+ (Automatic Furnace Operator 100mcg) 03/06/2020, 04/03/2020 Discharge Medications: Your [...] weight gain + increasing shortness of breath. [id number] minutes prior to a dose of torsemide). [...] appointments: During 8am-5pm Wednesday through Wednesday call [phone] to speak with a nurse in the cardiology clinic All other times call [phone] and ask to speak to the department manager weatherization crew leader. Return to work: One week Driving: No driving for 48 hours after catheterization. Follow up Appointments: PCP JOCY Franco [phone] 11:30am on July 19. Cardiology office will call you regarding your appointment with Dr. Kinsey. General Instructions None Future Appointments and Orders Future Appointments and Orders Future Appointments Provider Department Dept Phone 07/26/2023 3:20 PM Jaspreet Kinsey MD Cardiology at [place] Arrive at: [facility] [address] [phone] 07/29/2023 8:00 AM Porsha Mcdaniels MD Cardiology at [facility] Arrive at: Parts Salesperson Area 4A [phone] 08/03/2023 8:30 AM Eladio Boyer Vascular Lab at [facility] Arrive at: Parts Salesperson Area 3V [phone] 08/03/2023 9:30 AM Judith Butler APRN Vascular Surgery at [facility] Arrive at: Parts Salesperson Area 3V [phone] 09/02/2023 2:40 PM Jaspreet Kinsey MD Cardiology at [place] Arrive at: [facility] [address] [phone] Discharge References/Attachments None Greater than 30 minutes was spent on this discharge including documentation, [id number] time withthe patient, patient education, field recorder, coordination with pharmacy and other patient [...] appointments: During 8am-5pm Wednesday through Wednesday call [phone] to speak with a nurse in the cardiology clinic All other times call [phone] and ask to speak to the department manager weatherization crew leader. Return to work: One week Driving: No driving for 48 hours after catheterization. Follow up Appointments: PCP JOCY Franco [phone] 11:30am on July 19. Cardiology office will [...] as needed. fluticasone propionate (FLONASE) 50 mcg/actuation [place], Suspension 1 spray by Each Nare route [...] 4pm, per the team. Please refer to: [facility] [address] [place] [address] PHONE: [phone] FAX: [phone] *For RN RICARDO: 07/09/23 Nani Mendoza MSN-Ed, RN ACM Cardiac Research Nurse and Neuro/Neurocrit/ENT Internet Systems Administrator. * Mary Castaneda RCP - 07/09/2023 4:37 [...] 1:00 PM EDT [facility] H[facility]ITALIST 2 - [facility] DAILY PROGRESS NOTE Page [phone] to reach a provider 28/09 Admit Date: [...] with positive cardiac markers. Patient transferred to [facility] for further work-up and evaluation. Presented with [...] prn. Diet: Daily Healthy Menu Choices/Cardiac diet ([facility]-Diet) DVT Prophylaxis: DOAC heparin gtt. 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 Patient transferred to [facility] for further work-up and evaluation. Presented with [...] Score: 24 PT: OT: PCP JOCY Franco [phone] Terrence Keating MD 07/07/2023 * Terrence Keating MD - 07/06/2023 11:00 AM EDT [facility] H[facility]PITALIST 2 - [facility] DAILY PROGRESS NOTE Page [phone] to reach a provider 28/09 Admit Date: [...] with positive cardiac markers. Patient transferred to [facility] for further work-up and evaluation. Presented with [...] hospital Diet: Daily Healthy Menu Choices/Cardiac diet ([facility]-Diet) NPO diet (Give Meds) DVT Prophylaxis: DOAC Code status: Attempt Cardiopulmonary Resuscitation - Inpatient Disposition: Discharge Location: AM-PAC Basic Mobility Raw Score: 24 PT: OT: PCP JOCY Franco [phone] Terrence Keating MD 07/06/2023 * Ana Paula [...] 11:00 AM EDT [facility] H[facility]PITALIST 2 - [facility] DAILY PROGRESS NOTE Page [phone] to reach a provider 28/09 Admit Date: [...] with positive cardiac markers. Patient transferred to [facility] for further work-up and evaluation. Presented with [...] hospital Diet: Daily Healthy Menu Choices/Cardiac diet ([facility]-Diet) DVT Prophylaxis: DOAC Code status: Attempt Cardiopulmonary Resuscitation - Inpatient Disposition: Discharge Location: AM-[facility] Basic Mobility Raw Score: 24 PT: OT: PCP JOCY Franco [phone] Terrence Keating MD 07/05/2023 * Lino Calles MD - 07/04/2023 9:09 AM EDT [facility] H[facility]PITALIST 2 - [facility] DAILY PROGRESS NOTE Page [phone] to reach a provider 28/09 Admit Date: [...] with positive cardiac markers. Patient transferred to [facility] for further work-up and evaluation. On arrival, [...] migraine Diet: Daily Healthy Menu Choices/Cardiac diet ([facility]-Diet) DVT Prophylaxis: DOAC Code status: Attempt Cardiopulmonary Resuscitation - Inpatient Disposition: Discharge Location: AM-PAC Basic Mobility Raw Score: 24 PT: OT: PCP JOCY Franco [phone] Lino Calles MD 07/04/2023 * Ana Paula [...] 8:59 AM EDT CV HOSPITALIST 2 - [facility] DAILY PROGRESS NOTE Page [phone] to reach a provider 28/09 Admit Date: [...] with positive cardiac markers. Patient transferred to [facility] for further work-up and evaluation. On arrival, [...] PRN Diet: Daily Healthy Menu Choices/Cardiac diet ([facility]-Diet) DVT Prophylaxis: DOAC Code status: Attempt Cardiopulmonary Resuscitation - Inpatient Disposition: Discharge Location: AM-PAC Basic Mobility Raw Score: 24 PT: OT: PCP JOCY Franco [phone] Lino Calles MD 07/03/2023 * Van Muse [...] 9:55 AM EDT [facility] H[facility]PITALIST 2 - [facility] DAILY PROGRESS NOTE Page [phone] to reach a provider 28/09 Admit Date: [...] with positive cardiac markers. Patient transferred to [facility] for further work-up and evaluation. On arrival, [...] PRN Diet: Daily Healthy Menu Choices/Cardiac diet ([facility]-Diet) DVT Prophylaxis: DOAC Code status: Attempt Cardiopulmonary Resuscitation - Inpatient Disposition: Discharge Location: AM-PAC Basic Mobility Raw Score: 24 PT: OT: PCP JOCY Franco [phone] Lino Calles MD 07/02/2023 * Jaspreet Griffith [facility] - 07/02/2023 6:35 AM EDT Respiratory [...] 7:39 AM EDT CV HOSPITALIST 2 - [facility] DAILY PROGRESS NOTE Page [phone] to reach a provider 28/09 Admit Date: [...] with positive cardiac markers. Patient transferred to [facility] for further work-up and evaluation. On arrival, [...] PRN Diet: Daily Healthy Menu Choices/Cardiac diet ([facility]-Diet) NPO diet (Give Meds) DVT Prophylaxis: DOAC Code status: Attempt Cardiopulmonary Resuscitation - Inpatient Disposition: Discharge Location: AM-PAC Basic Mobility Raw Score: 24 PT: OT: PCP JOCY Franco [phone] Terrence Keating MD 07/01/2023 * Terrence Keating MD - 06/30/2023 8:00 AM EDT [facility] H[facility]PITALIST 2 - [facility] DAILY PROGRESS NOTE Page [phone] to reach [...] with positive cardiac markers. Patient transferred to [facility] for further work-up and evaluation. On arrival, [...] Score: 24 PT: OT: PCP JOCY Franco [phone] Terrence Keating MD 06/30/2023 * Terrence Keating MD - 06/29/2023 4:29 PM EDT CV HOSPITALIST 2 - [facility] DAILY PROGRESS NOTE Page [phone] to reach a provider 28/09 Admit Date: [...] with positive cardiac markers. Patient transferred to [facility] for further work-up and evaluation. On arrival, [...] Score: 24 PT: OT: PCP JOCY Franco [phone] Terrence Keating MD 06/29/2023 * Jo Ann Sharpe - 06/29/2023 2:54 PM EDT Nutrition Services Note - Low Nutrition Acuity Loida Roque is a 53 y.o. female Reason for intervention: follow up Nutrition Plan: Continue current diet. Encourage good PO intake. Spironolactone noted. Abdominal pain after eating noted. Encouragement and support provided. Pt screened for follow-up visit and promotion writer met with Pt at bedside. Pt [...] consulted in the interim. Jo Ann Sharpe Marine Erector * Mary Castaneda RCP - 06/29/2023 3:55 [...] 1:53 PM EDT CV HOSPITALIST 2 - [facility] DAILY PROGRESS NOTE Page [phone] to reach [...] with positive cardiac markers. Patient transferred to [facility] for further work-up and evaluation. On arrival, [...] Score: 24 PT: OT: PCP JOCY Franco [phone] * Ailyn Irvin MD - 06/27/2023 9:40 AM EDT CV HOSPITALIST 2 - [facility] DAILY PROGRESS NOTE Page [phone] to reach [...] 06/14/23 (from the past 24 hour(s)). Assessment: Loiad Roque is a 53 y.o. female with [...] with positive cardiac markers. Patient transferred to [facility] for further work-up and evaluation. On arrival, [...] Score: 24 PT: OT: PCP JOCY Franco [phone] * Ailyn Irvin MD - 06/26/2023 12:42 PM EDT CV HOSPITALIST 2 - [facility] DAILY PROGRESS NOTE Page [phone] to reach a provider 28/09 Admit Date: [...] with positive cardiac markers. Patient transferred to [facility] for further work-up and evaluation. On arrival, [...] Score: 24 PT: OT: PCP JOCY Franco [phone] * Mitali Manuel [facility] - 06/26/2023 5:43 AM EDT Respiratory [...] 1:39 PM EDT CV HOSPITALIST 2 - [facility] DAILY PROGRESS NOTE Page [phone] to reach a provider 28/09 Admit Date: [...] with positive cardiac markers. Patient transferred to [facility] for further work-up and evaluation. On arrival, [...] Score: 24 PT: OT: PCP JOCY Franco [phone] * Edith Chandler RCP - 06/24/2023 10:40 [...] 4:38 PM EDT CV HOSPITALIST 2 - [facility] DAILY PROGRESS NOTE Page [phone] to reach a provider 28/09 Admit Date: [...] and SVT ablation on 04/01/[address] Toledo, paroxysmal A-fib (diagnosed on 10/20/2022), HFpEF, pulmonary emboli on Eliquis, and restrictive lung disease secondary to obesity who presented to OSH with chest pain. Patient has recently undergone extensive workup for ACS that has been unrevealing. 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 The patient current presentation is different with positive cardiac markers. Patient transferred to [facility] for further work-up and evaluation. On arrival, [...] Score: 24 PT: OT: PCP JOCY Franco [phone] * Aaron Rosado RCP - 06/24/2023 1:55 [...] 1:03 PM EDT CV HOSPITALIST 2 - [facility] DAILY PROGRESS NOTE Page [phone] to reach a provider 28/09 Admit Date: [...] with positive cardiac markers. Patient transferred to [facility] for further work-up and evaluation. On arrival, [...] Score: 24 PT: OT: PCP JOCY Franco [phone] * Ciera Valdovinos, ALVA - 06/22/2023 2:38 PM EDT Nutrition Services Note - Low Nutrition Acuity Loida Roque is a 53 y.o. female Reason for intervention: hospital day 9 Nutrition Plan: Cardiac Diet Record % PO intake Monitor weight - diuresis noted Patient screened for hospital length of stay nutrition visit, promotion writer met with Loida at bedside. Loida [...] 1:35 PM EDT CV HOSPITALIST 2 - [facility] DAILY PROGRESS NOTE Page [phone] to reach a provider 28/09 Admit Date: [...] who have questions please contact the health cna caregiver that requested your imaging first. Electronically signed by: RONDA DUFFY MD, [facility] ([phone]), at 06/22/2023 7:59 AM XR Chest One View (Exam End: 06/22/2023 11:42 AM) Impression No acute pulmonary findings Thank you for letting us participate in the care of this patient. If you are a health care provider and have any questions regarding this report, please contact the number below. For patients who have questions please contact the health cna caregiver that requested your imaging first. Electronically signed by: Itz Hayward MD, [facility] ([phone]), at 06/22/2023 11:47 AM Assessment: Loida Roque [...] with positive cardiac markers. Patient transferred to [facility] for further work-up and evaluation. On arrival, [...] above Diet: Daily Healthy Menu Choices/Cardiac diet ([facility]-Diet) DVT Prophlaxis: eliquis Code status: Attempt Cardiopulmonary Resuscitation - Inpatient Disposition: Discharge Planning: AM-PAC Basic Mobility Raw Score: 24 PT: OT: PCP JOCY Franco [phone] * Eufemia Copeland MD - 06/21/2023 11:02 AM EDT CV HOSPITALIST 2 - [facility] DAILY PROGRESS NOTE Page [phone] to reach a provider 28/09 Admit Date: [...] with positive cardiac markers. Patient transferred to [facility] for further work-up and evaluation. On arrival, [...] above Diet: Daily Healthy Menu Choices/Cardiac diet ([facility]-Diet) DVT Prophlaxis: eliquis Code status: Attempt Cardiopulmonary Resuscitation - Inpatient Disposition: Discharge Planning: AM-PAC Basic Mobility Raw Score: 24 PT: OT: PCP JOCY Franco [phone] * Eufemia Copeland MD - 06/20/2023 8:06 AM EDT CV HOSPITALIST 2 - [facility] DAILY PROGRESS NOTE Page [phone] to reach a provider 28/09 Admit Date: [...] with positive cardiac markers. Patient transferred to [facility] for further work-up and evaluation. On arrival, [...] above Diet: Daily Healthy Menu Choices/Cardiac diet ([facility]-Diet) DVT Prophlaxis: eliquis Code status: Attempt Cardiopulmonary Resuscitation - Inpatient Disposition: Discharge Planning: AM-PAC Basic Mobility Raw Score: 24 PT: OT: PCP JOCY Franco [phone] * Eufemia Copeland MD - 06/19/2023 10:00 AM EDT CV HOSPITALIST 2 - [facility] DAILY PROGRESS NOTE Page [phone] to reach a provider 28/09 Admit Date: [...] with positive cardiac markers. Patient transferred to [facility] for further work-up and evaluation. On arrival, [...] above Diet: Daily Healthy Menu Choices/Cardiac diet ([facility]-Diet) DVT Prophlaxis: eliquis Code status: Attempt Cardiopulmonary Resuscitation - Inpatient Disposition: Discharge Planning: AM-PAC Basic Mobility Raw Score: 24 PT: OT: PCP JOCY Franco [phone] * Eufemia Copeland MD - 06/18/2023 9:02 AM EDT CV HOSPITALIST 2 - [facility] DAILY PROGRESS NOTE Page [phone] to reach a provider 28/09 Admit Date: [...] with positive cardiac markers. Patient transferred to [facility] for further work-up and evaluation. On arrival, [...] above Diet: Daily Healthy Menu Choices/Cardiac diet ([facility]-Diet) DVT Prophlaxis: eliquis Code status: Attempt Cardiopulmonary Resuscitation - Inpatient Disposition: Discharge Planning: AM-PAC Basic Mobility Raw Score: 24 PT: OT: PCP JOCY Franco [phone] * Eufemia Copeland MD - 06/17/2023 12:02 PM EDT CV HOSPITALIST 2 - [facility] DAILY PROGRESS NOTE Page [phone] to reach a provider 28/09 Admit Date: [...] with positive cardiac markers. Patient transferred to [facility] for further work-up and evaluation. On arrival, [...] above Diet: Daily Healthy Menu Choices/Cardiac diet ([facility]-Diet) DVT Prophlaxis: eliquis Code status: Attempt Cardiopulmonary Resuscitation - Inpatient Disposition: Discharge Planning: AM-PAC Basic Mobility Raw Score: 24 PT: OT: PCP JOCY Franco [phone] * Calista Hernandez RT - 06/17/2023 4:36 [...] 3:25 PM EDT CV HOSPITALIST 2 - [facility] DAILY PROGRESS NOTE Page [phone] to reach a provider 28/09 Admit Date: [...] with positive cardiac markers. Patient transferred to [facility] for further work-up and evaluation. On arrival, [...] above Diet: Daily Healthy Menu Choices/Cardiac diet ([facility]-Diet) DVT Prophlaxis: eliquis Code status: Attempt Cardiopulmonary Resuscitation - Inpatient Disposition: Discharge Planning: AM-PAC Basic Mobility Raw Score: 24 PT: OT: PCP JOCY Franco [phone] documented in this encounter H&P Notes * [...] pain. The patient was recently admitted at [facility] from 04/16/23 to 04/19/2023 as a transfer from [facility] due to exertional chest pressure and [...] etiology, patient was accepted for transfer to [facility]. 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 fluticasone propionate (FLONASE) 50 mcg/actuation [place], Suspension 1 spray by Each Nare route [...] if hypotensive / cardiogenic shock / inferior [place] / sildenafil within past 24 hours) - [...] for discharge to home with family support, [facility] for RN and OP Cardi clinic for f/u. Needs for Transition of Care: Plan for discharge is: Home w/ Services Outpatient Agency/Support Group Needs: None Home Health Services: Registered Nurse Agency Referrals & Follow-up Care: Contact information for follow-up Home Health & Hospice, [place] [address] [place] [address] Transportation: taxi voucher -Ride confirmed entrance #2 [...] none Patient is insured through: Primary [place] [employer] [place] [employer] / [place] / Product Type: *No Product type* / Secondary Insurance: N/A Prescription Coverage: Yes This plan was formulated with input from patient, (please identify family/friend involved if applicable) and team. All are in agreement with plan. Nani Mendoza MSN-Ed, RN ACM Cardiac Research Nurse and Neuro/Neurocrit/ENT Internet Systems Administrator. * Care Management - Dixie Patterson - 07/09/2023 1:38 PM EDT Transportation for discharge was scheduled and confirmed through [employer]. [employer] will have a regional company flatbed truck driver here at entrance #2 @4pm [...] Visceral Aorta 80 16 Celiac Artery, Proximal Chase-Biphasic 119 26 Celiac Artery, Mid Chase-Biphasic 115 21 Celiac Artery, Distal No Vis Sup Mes Artery Proximal Biphasic 427 91 Sup Mes Artery Middle Chase-Biphasic 100 17 Sup Mes Artery Distal Chase-Biphasic 64 15 Hepatic Artery No Vis Splenic [...] sign off at this time, please page [phone] with any questions or concerns. Discussed with [...] Visceral Aorta 80 16 Celiac Artery, Proximal Chase-Biphasic 119 26 Celiac Artery, Mid [place]ic 115 21 Celiac Artery, Distal No Vis Sup Mes Artery Proximal Biphasic 427 91 Sup Mes Artery Middle Chase-Biphasic 100 17 Sup Mes Artery Distal Chase-Biphasic 64 15 Hepatic Artery No Vis Splenic [...] duplex Discussed with Dr. Kamara. Please page [phone] with any questions or concerns. 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 At [place], patient should be strict NPO. The plan as outlined above was discussed with Dr. Villa. Recommendations were discussed with primary team. Sis Keenan M.D. Fellow in Gastroenterology and Hepatology Pager #[phone] 07/06/2023 Associated attestation - Lashonda Villa MD [...] Lashonda Villa MD Gastroenterology and hepatology Pager: [phone] * Plan of Care - Olive Hernandez [...] Visceral Aorta 80 16 Celiac Artery, Proximal Chase-Biphasic 119 26 Celiac Artery, Mid Chase-Biphasic 115 21 Celiac Artery, Distal No Vis Sup Mes Artery Proximal Biphasic 427 91 Sup Mes Artery Middle Chase-Biphasic 100 17 Sup Mes Artery Distal Chase-Biphasic 64 15 Hepatic Artery No Vis Splenic [...] duplex Discussed with Dr. Kamara. Please page [phone] with any questions or concerns. Gauri Vega [...] Visceral Aorta 80 16 Celiac Artery, Proximal Chase-Biphasic 119 26 Celiac Artery, Mid Chase-Biphasic 115 21 Celiac Artery, Distal No Vis Sup Mes Artery Proximal Biphasic 427 91 Sup Mes Artery Middle Chase-Biphasic 100 17 Sup Mes Artery Distal Chase-Biphasic 64 15 Hepatic Artery No Vis Splenic [...] ASA) Discussed with Dr. Kamara. Please page [phone] with any questions or concerns. Gauri Vega [...] Visceral Aorta 80 16 Celiac Artery, Proximal Chase-Biphasic 119 26 Celiac Artery, Mid Chase-Biphasic 115 21 Celiac Artery, Distal No Vis Sup Mes Artery Proximal Biphasic 427 91 Sup Mes Artery Middle Chase-Biphasic 100 17 Sup Mes Artery Distal Chase-Biphasic 64 15 Hepatic Artery No Vis Splenic [...] 07/02/[address] Kamara. Please page [phone] with any questions or concerns. Gauri Vega [...] Visceral Aorta 80 16 Celiac Artery, Proximal Chase-Biphasic 119 26 Celiac Artery, Mid Chase-Biphasic 115 21 Celiac Artery, Distal No Vis Sup Mes Artery Proximal Biphasic 427 91 Sup Mes Artery Middle Chase-Biphasic 100 17 Sup Mes Artery Distal Chase-Biphasic 64 15 Hepatic Artery No Vis Splenic [...] tonight Discussed with Dr. Kamara. Please page [phone] with any questions or concerns. Gauri Vega [...] Visceral Aorta 80 16 Celiac Artery, Proximal Chase-Biphasic 119 26 Celiac Artery, Mid Chase-Biphasic 115 21 Celiac Artery, Distal No Vis Sup Mes Artery Proximal Biphasic 427 91 Sup Mes Artery Middle Chase-Biphasic 100 17 Sup Mes Artery Distal Chase-Biphasic 64 15 Hepatic Artery No Vis Splenic [...] Visceral Aorta 80 16 Celiac Artery, Proximal Chase-Biphasic 119 26 Celiac Artery, Mid Chase-Biphasic 115 21 Celiac Artery, Distal No Vis Sup Mes Artery Proximal Biphasic 427 91 Sup Mes Artery Middle Chase-Biphasic 100 17 Sup Mes Artery Distal Chase-Biphasic 64 15 Hepatic Artery No Vis Splenic [...] Dominguez PA - 06/28/2023 8:52 AM EDT [facility] Department of Cardiology Consult Progress Note Reason [...] consultation required. JOCY Langston-C Cardiovascular Medicine Pager [phone] 06/28/2023 Associated attestation - Klarissa Henderson MD - 06/30/2023 6:25 AM EDT I saw and evaluated the patient with Chaoy Dominguez PA and agree with the assessment [...] Tellez MD - 06/24/2023 2:14 PM EDT [facility] Department of Cardiology Consult Progress Note Reason [...] if further consultation required. 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 fluticasone propionate (FLONASE) 50 mcg/actuation [place], Suspension 1 spray by Each Nare route [...] No Patient is insured through: [place] / [place] / [...] other (see comments) (Has CPAP provided through [facility]) DME Needed at Discharge: No Patient is insured through: [place] / Plan[place] / Product Type: *No Product type* / Secondary Insurance: N/A Plan for discharge is: Home w/o Services Outpatient Agency/Support Group Needs: None Agency Referrals: Not Applicable at this time. Transportation: taxi voucher Barriers to discharge: Discharge planning Plan going forward: [place] with family without services once medically ready. Care Management will continue to follow and assist with discharge planning and coordination of careas indicated. Anticipated Date of Discharge: 06/19/2023 BEA Killian, RN Inpatient Machine [facility]rainer- Cardiology Office of Care Management Pager #: [phone] * Plan of Care - Olive Hernandez [...] COVID test: Lab Results Component Value Date [id number] Not Detected 06/13/2021 Past medical History: Past [...] In the past 12 months has the [employer], gas, oil, or water [employer] threatened to shut off services in your [...] other (see comments) (Has CPAP provided through [facility]) [address] [address] Social & Family Supports: All names listed [...] Specific Information: Has a CPAP provided by [facility]/Prescription Coverage: Primary [place] / Plan[place] [employer] [place] / Product Type: *No Product type* / Secondary Insurance: N/A ; Prescription Coverage: Yes Preferred Pharmacy: [facility] [address] [address] [place] Status: Patient is a : No Primary Care Provider confirmed: JOCY Franco [phone] Patient/Caregiver Goals of Treatment: To figure out what is wrong Potential Needs for Transition of Care: other (see comments) ([facility] help) Agency Referrals: Not Applicable Transportation: no concerns Transportation Anticipated: agency ( can not drive , mother does not drive , Son does not have a car) Concerns to be Addressed: discharge planning Assessment: Patient is admitted to [facility] service for Chest pain Plan: May [...] Office of Care Management Float / time stamp assembler recreation attendant supervisor [email or web address] Pager #[phone] * Consult Note - Jackie Batres MD - 06/15/2023 11:04 AM EDT [facility] Department of Cardiology Initial Consult Note Patient: [...] her case. She has not had recent half-way monitoring for arrhythmia, though unlikely, is possible [...] PM EDT Office Visit Cardiology at [address] [place] [address] Jaspreet Kinsey MD [facility] [place] [address] 10/28/2023 9:00 AM EDT Office [place] [address] 10/29/2023 10:00 AM EDT Clinical Support [place] [address] 10/29/2023 10:15 AM EDT Procedure [place] [address] 11/01/2023 5:00 PM EDT Office [place] [address] Selene Browning, PhD [facility] [place] [address] 11/22/2023 4:40 PM EDT Office Visit Cardiology at [address] [address] Porsha Mcdaniels MD [facility] [place] [address] 12/13/2023 10:00 AM EDT Clinical [place] [address] [facility] [place] [address] Scheduled Orders Name Type Priority Associated Diagnoses [...] Routine 07/07/2023 2:25 PM EDT Colonoscopy, Biopsy ([id number]) 07/07/2023 2:10 PM EDT post prandial pain Upper Gi Endoscopy, Biopsy ([id number]) 07/07/2023 2:10 PM EDT post prandial pain [...] 07/07/2023 3:51 AM EDT GIARDIA/CRYPTOSPORIDI UM ANTIGENS ([facility]/CGP/APD/NLH) Routine 07/07/2023 12:38 AM EDT HEPATIC FUNCTION [...] EDT) Glucose 111 65 - 199 mg/dL [facility] Comment:Diabetes: >=200 mg/d L plus symptoms Blood Urea Nitrogen 29(H) 8 - 18 mg/dL [facility] Creatinine 1.41(H) 0.70 - 1.20 mg/dL [facility] Sodium 140 135 - 145 mmol/L [facility] Potassium 3.6 3.5 - 5.0 mmol/L [facility] Comment: Please note: ??Patients with WBC >100,000 may have falsely elevated Potassium levels. ??For accurate Potassium quantification in these patients send serum separator tube (gold top) for subsequent determinations. ??Contact the Clinical Chemistry Laboratory if there are any questions. Chloride 99 98 - 107 mmol/L [facility] Carbon Dioxide 29 22 - 31 mmol/L [facility] Anion Gap 12 5 - 15 mmol/L [facility] Calcium 10.0 8.5 - 10.5 mg/dL [facility] Est Glomerular Filtration Rate 44(L) >=60 mL/min/1. 73 m?? [facility] [...] In Lab Terrence Keating MD CHEMISTRY ORDERABLES [facility] [place] [address] * Differential, Automated (07/09/2023 3:03 AM EDT) Pathologist [facility] Neutrophil % 51.4 % [facility] Neutrophil Absolute 3.43 1.70 - 6.10 x10(3)/[facility]ATORY Lymph % 31.4 % [facility] Lymphocytes Abs 2.1 0.9 - 3.2 x10(3)/[facility] Monocyte % 10.1 % [facility] Monocyte Abs 0.7 0.3 - 0.9 x10(3)/[facility] LABORATORY Eos % 6.0 % [facility] Eosinophils Abs 0.4 0.0 - 0.4 x10(3)/[facility] Basophil % 0.8 % [facility] Baso Absolute 0.0 0.0 - 0.1 x10(3)/[facility] Immature Gran % 0.30 % [facility] Comment: Immature granulocytes(IG's)percentage and absolute count will include metamyelocytes, myelocytes, and promyelocytes. Blood smears from CBCs yielding IG's will be scanned manually for concordance. If this scan disagrees with the automated IG or if promyelocytes are noted, a manual differential will be performed. Immature Gran Absolute 0.02 0.00 - 0.04 x10(3)/[facility] Blood 07/09/2023 3:03 AM EDT 07/09/2023 3:14 AM EDT Narrative Resulting Agency Comment Spec In Lab Terrence Keating MD HEMATOLOGY ORDERABLE S [facility] [place] [address] * (ABNORMAL) Hemogram (07/09/2023 3:03 AM EDT) Pathologist [facility] White Blood Cell 6.7 4.0 - 9.5 x10(3)/ L [facility] Red Blood Cell 3.87(L) 4.00 - 5.21 x10(6)/mc L [facility] Hemoglobin 12.4 11.7 - 15.5 g/dL [facility] Hematocrit 36.8 35.7 - 45.8 % [facility] Mean Cell Volume 95.1(H) 82.6 - 94.4 fL [facility] Mean Cell Hemoglobin 32.0 27.1 - 32.0 pg [facility] Mean Cell Hemoglobin Concentration 33.7 31.7 - 35.0 g/dL [facility] Platelet 209 145 - 357 x10(3)/mc L [facility] RDW Standard Deviation 47.9(H) 37.0 - 46.0 fL [facility] RDW coefficient of variation 13.7 11.5 - 14.1 % [facility] Mean Platelet Volume 10.5 7.6 - 12.9 fL [facility] NRBC% auto 0.0 % [facility] NRBC Absolute 0.000 0.000 - 0.000 x10(3)/mc L [facility] Blood 07/09/2023 3:03 AM EDT 07/09/2023 3:14 AM EDT Narrative Resulting Agency Comment Spec In Lab Terrence Keating MD HEMATOLOGY ORDERABLE S Performing Organization Address City/State/[place] Co de Phone Number [facility] [place] [address] * Heparin (unfractionated) Level (07/09/2023 3:03 AM EDT) UF Heparin 0.52 IU/mL [facility] Lab Ailyn Irvin MD HEMATOLOGY ORDERABLE S [facility] [place] [address] * (ABNORMAL) Basic Metabolic Panel (non-fasting) (07/09/2023 3:03 AM EDT) Glucose 100 65 - 199 mg/dL [facility] Comment:Diabetes: >=200 mg/d L plus symptoms Blood Urea Nitrogen 12 8 - 18 mg/dL [facility] Creatinine 1.24(H) 0.70 - 1.20 mg/dL [facility] [...] questions. Chloride 104 98 - 107 mmol/L [facility] Carbon Dioxide 22 22 - 31 mmol/L [facility] Anion Gap 12 5 - 15 mmol/L [facility] Calcium 9.3 8.5 - 10.5 mg/dL [facility] Est Glomerular Filtration Rate 52(L) >=60 mL/min/1. 73 m?? [facility] [...] MD CHEMISTRY ORDERABL ES Performing Organization Address [facility]/[place] Co de Phone Number [facility] [place] [address] * Phosphorus (07/09/2023 3:03 AM EDT) Phosphorus 4.5 2.5 - 4.5 mg/dL [facility] Blood 07/09/2023 3:03 AM EDT 07/09/2023 3:14 AM EDT Narrative Resulting Agency Comment Spec In Lab Eufemia Copeland MD CHEMISTRY ORDERABL ES Performing Organization Address [facility] de Phone Number [facility] [place] [address] * Magnesium (07/09/2023 3:03 AM EDT) Magnesium 0.91 0.69 - 1.07 mmol/L [facility] Blood 07/09/2023 3:03 AM EDT 07/09/2023 3:14 AM EDT Narrative Resulting Agency Comment Spec In Lab Eufemia Copeland MD CHEMISTRY ORDERABL ES Performing Organization Address [facility]/[place] Co de Phone Number [facility] [place] [address] * Heparin (unfractionated) Level (07/08/2023 12:02 PM EDT) UF Heparin 0.45 IU/mL [facility] Comment: [...] Lab Terrence Keating MD HEMATOLOGY ORDERABLE S [facility] [place] [id number] * EKG 12 Lead (07/08/2023 9:58 AM EDT) Ventricular rate 66 BPM MUSE SYSTEM Atrial Rate 66 BPM MUSE SYSTEM P-R Interval 178 ms MUSE SYSTEM QRS Duration 92 ms MUSE SYSTEM Q-T Interval 486 ms MUSE SYSTEM QTC Calculated (Bezet) 509 ms MUSE SYSTEM Calculated P [place] 29 degrees MUSE SYSTEM Calculated R [place] 33 degrees MUSE SYSTEM Calculated T [place] 29 degrees MUSE SYSTEM INTERPRETATION Normal sinus rhythm Nonspecific ST and T wave abnormality Prolonged QT Abnormal ECG When compared with ECG of 04-JUL-2023 11:41, Criteria for Septal infarct are no longer Present I personally reviewed the tracing and edited the fellows interpretation Confirmed by fellow MD Keyshawn, Katalina ([id number]) on 07/08/2023 3:18:07 PM Confirmed by MD Henderson Katharine ([id number]) on 07/09/2023 6:15:21 AM MUSE SYSTEM 07/08/2023 9:58 AM EDT 07/09/2023 6:15 AM EDT Lisa Beck MD ECG ORDERABLES MUSE SYSTEM * Differential, Automated (07/08/2023 5:52 AM EDT) Neutrophil % 60.6 % [facility] Neutrophil Absolute 4.42 1.70 - 6.10 x10(3)/[facility]ATORY Lymph % 24.8 % [facility] Lymphocytes Abs 1.8 0.9 - 3.2 x10(3)/[facility] Monocyte % 9.2 % [facility] Monocyte Abs 0.7 0.3 - 0.9 x10(3)/[facility] Eos % 4.5 % [facility] Eosinophils Abs 0.3 0.0 - 0.4 x10(3)/[facility] Basophil % 0.5 % [facility] Baso Absolute 0.0 0.0 - 0.1 x10(3)/[facility] Immature Gran % 0.40 % [facility] Comment: Immature granulocytes(IG's)percentage and absolute count will include metamyelocytes, myelocytes, and promyelocytes. Blood smears from CBCs yielding IG's will be scanned manually for concordance. If this scan disagrees with the automated IG or if promyelocytes are noted, a manual differential will be performed. Immature Gran Absolute 0.03 0.00 - 0.04 x10(3)/[facility] Blood 07/08/2023 5:52 AM EDT 07/08/2023 5:58 AM EDT Narrative Resulting Agency Comment Spec In Lab Terrence Keating MD HEMATOLOGY ORDERABLE S [facility] [place] [address] * (ABNORMAL) Hemogram (07/08/2023 5:52 AM EDT) Pathologist [facility] White Blood Cell 7.3 4.0 - 9.5 x10(3)/mc L [facility] Red Blood Cell 3.94(L) 4.00 - 5.21 x10(6)/mc L [facility] Hemoglobin 12.3 11.7 - 15.5 g/dL [facility] Hematocrit 36.3 35.7 - 45.8 % [facility] Mean Cell Volume 92.1 82.6 - 94.4 fL [facility] Mean Cell Hemoglobin 31.2 27.1 - 32.0 pg [facility] Mean Cell Hemoglobin Concentration 33.9 31.7 - 35.0 g/dL [facility] Platelet 207 145 - 357 x10(3)/mc L [facility] RDW Standard Deviation 44.6 37.0 - 46.0 fL [facility] RDW coefficient of variation 13.3 11.5 - 14.1 % [facility] Mean Platelet Volume 10.5 7.6 - 12.9 fL [facility] NRBC% auto 0.0 % [facility] NRBC Absolute 0.000 0.000 - 0.000 x10(3)/ L [facility] Blood 07/08/2023 5:52 AM EDT 07/08/2023 5:58 AM EDT Narrative Resulting Agency Comment Spec In Lab Terrence Keating MD HEMATOLOGY ORDERABLE S [facility] [place] [address] * Heparin (unfractionated) Level (07/08/2023 5:52 AM EDT) Pathologist [facility] UF Heparin 0.37 IU/mL [facility] Comment: [...] Lab Ailyn Irvin MD HEMATOLOGY ORDERABLE S [facility] [place] [address] * (ABNORMAL) Basic Metabolic Panel (non-fasting) (07/08/2023 5:52 AM EDT) Glucose 102 65 - 199 mg/dL [facility] Comment:Diabetes: >=200 mg/d L plus symptoms Blood Urea Nitrogen 14 8 - 18 mg/dL [facility] Creatinine 1.30(H) 0.70 - 1.20 mg/dL [facility] Sodium 139 135 - 145 mmol/L [facility] Potassium 3.2(L) 3.5 - 5.0 mmol/L [facility] Comment: Please note: ??Patients with WBC >100,000 may have falsely elevated Potassium levels. ??For accurate Potassium quantification in these patients send serum separator tube (gold top) for subsequent determinations. ??Contact the Clinical Chemistry Laboratory if there are any questions. Chloride 101 98 - 107 mmol/L [facility] Carbon Dioxide 25 22 - 31 mmol/L [facility] Anion Gap 13 5 - 15 mmol/L [facility] Calcium 9.3 8.5 - 10.5 mg/dL [facility] Est Glomerular Filtration Rate 49(L) >=60 mL/min/1. 73 m?? [facility] [...] MD CHEMISTRY ORDERABL ES Performing Organization Address [facility]/[place] Co de Phone Number [facility] [place] [address] * Phosphorus (07/08/2023 5:52 AM EDT) Phosphorus 4.3 2.5 - 4.5 mg/dL [facility] Blood 07/08/2023 5:52 AM EDT 07/08/2023 5:58 AM EDT Narrative Resulting Agency Comment Spec In Lab Eufemia Copeland MD CHEMISTRY ORDERABL ES Performing Organization Address [facility]/[place] Co de Phone Number [facility] [place] [address] * Magnesium (07/08/2023 5:52 AM EDT) Magnesium 0.89 0.69 - 1.07 mmol/L [facility] Blood 07/08/2023 5:52 AM EDT 07/08/2023 5:58 AM EDT Narrative Resulting Agency Comment Spec In Lab Eufemia Copeland MD CHEMISTRY ORDERABL ES Performing Organization Address [facility]/[place] Co de Phone Number [facility] [place] [address] * Heparin (unfractionated) Level (07/08/2023 12:00 AM EDT) UF Heparin 0.22 IU/mL [facility] Comment: [...] MD HEMATOLOGY ORDERABLE S Performing Organization Address City/[facility]/ZIP Co de Phone Number [facility] [place] [address] * Specimen to Pathology (07/07/2023 2:55 PM EDT) AP Specimen 07/07/2023 2:55 PM EDT 07/07/2023 2:55 PM EDT Narrative [facility] - 07/07/2023 2:55 PM EDT Specimen requisition ordered. ??Separate Pathology report to follow Terrence Keating MD PATHOLOGY/CYTOLOGY O RDERAFADUMO [facility] [place] [address] * Specimen to Pathology (07/07/2023 2:38 PM EDT) AP Specimen 07/07/2023 2:38 PM EDT 07/07/2023 2:38 PM EDT Narrative [facility] - 07/07/2023 2:38 PM EDT Specimen requisition ordered. ??Separate Pathology report to follow Terrence Keating MD PATHOLOGY/CYTOLOGY O RUMA Performing Organization Address City/[facility]/ZIP Co de Phone Number [facility] [place] [address] * Specimen to Pathology (07/07/2023 2:38 PM EDT) AP Specimen 07/07/2023 2:38 PM EDT 07/07/2023 2:38 PM EDT Narrative [facility] - 07/07/2023 2:38 PM EDT Specimen requisition ordered. ??Separate Pathology report to follow Terrence Keating MD PATHOLOGY/CYTOLOGY O RUMA Performing Organization Address [facility]/[place] Co de Phone Number [facility] [place] [address] * Surgical Pathology Report (07/07/2023 2:25 PM EDT) Final Diagnosis [id number] ? Location: [facility]; [facility]; The signing pathologist has (i) examined the [...] Sapna Verified: ??07/19/2023 13:25 ??Pathologist Performed at: ??-[facility] Dept. of Pathology, [place] [address] Thermal Engineer: Vangie Lu MD, FCAP, ??CLIA Certificate: [id number] SPECIMEN(S) SUBMITTED A - duodenal biopsies rule [...] labeled C1-C2. ??sdy 07/19/2023 1:25 PM EDT [facility] GI Biopsy 07/07/2023 2:25 PM EDT 07/07/2023 2:25 PM EDT GI Biopsy 07/07/2023 2:25 PM EDT 07/07/2023 2:25 PM EDT GI Biopsy 07/07/2023 2:25 PM EDT 07/07/2023 2:25 PM EDT Lashonda Villa MD PATHOLOGY/CYTOLOGY O RUMA [facility] [place] [address] * COLONOSCOPY (07/07/2023 1:39 PM EDT) COLONOSCOPY [facility] Endoscopy Procedure Date: 07/07/2023 1:39 PM ? Patient Name: Loida Roque ? Date of : 1970 ? Age: 53 ? Order #: [id number] ? Instrument Name: [id number]- [id number] ? Procedure: ? Colonoscopy Indications: ? Abdominal pain, Diarrhea Providers: ? Lashonda Villa MD, Phelps ? Systrom, Mercedes Toledo, Bouchra Recinos MD: [...] ? was evaluated using the BBPS ? (Charlotte Bowel Preparation Scale) ? with scores of: [...] Procedure Code(s): ? --- Professional --- ? 52490, Colonoscopy, flexible; with ? biopsy, single or multiple CPT copyright 2022 [employer]. All rights reserved. The codes documented in this report are preliminary and upon wood heel finisher review may be revised to meet current [...] GENERAL SURGICAL ORD ERABLES Performing Organization Address City/[facility]/[place] Co de Phone Number [employer]OVATION * Shiga Toxin Detection (07/07/2023 12:10 PM EDT) Shiga Toxin Assay EIA Negative for Shiga Toxin 1 EIA Negative for Shiga Toxin 2 [facility] Stool 07/07/2023 12:1 0 PM EDT 07/07/2023 12:53 PM EDT Narrative Resulting Agency Comment Spec In Lab Ailyn Irvin MD MICROBIOLOGY - GENER AL ORDERABLES Performing Organization Address [facility] de Phone Number [facility] [place] [address] * Campylobacter Antigen (07/07/2023 12:10 PM EDT) Campylobacter Ag Immunoassay Negative for Campylobacter Antigen [facility] Stool 07/07/2023 12:1 0 PM EDT 07/07/2023 12:53 PM EDT Narrative Resulting Agency Comment Spec In Lab Ailyn Irvin MD MICROBIOLOGY - GENER AL ORDERABLES Performing Organization Address [facility] de Phone Number [facility] [place] [address] * Stool culture (07/07/2023 12:10 PM EDT) Stool Culture No enteric pathogens isolated [facility] Stool 07/07/2023 12:1 0 PM EDT 07/07/2023 12:53 PM EDT Narrative Resulting Agency Comment Spec In Lab Ailyn Irvin MD MICROBIOLOGY - GENER AL ORDERABLES [facility] [place] [address] * (ABNORMAL) Differential, Automated (07/07/2023 3:51 AM EDT) Neutrophil % 58.9 % [facility] Neutrophil Absolute 4.67 1.70 - 6.10 x10(3)/mc L [facility] Lymph % 24.8 % [facility] Lymphocytes Abs 2.0 0.9 - 3.2 x10(3)/mc L [facility] Monocyte % 9.4 % [facility] Monocyte Abs 0.7 0.3 - 0.9 x10(3)/mc L [facility] Eos % 6.1 % [facility] Eosinophils Abs 0.5(H) 0.0 - 0.4 x10(3)/mc L [facility] Basophil % 0.5 % [facility] Baso Absolute 0.0 0.0 - 0.1 x10(3)/mc L [facility] [...] Absolute 0.02 0.00 - 0.04 x10(3)/mc L [facility] Blood 07/07/2023 3:51 AM EDT 07/07/2023 4:08 AM EDT Narrative Resulting Agency Comment Spec In Lab Terrence Keating MD HEMATOLOGY ORDERABLE S [facility] [place] [address] * Hemogram (07/07/2023 3:51 AM EDT) White Blood Cell 7.9 4.0 - 9.5 x10(3)/[facility] Red Blood Cell 4.42 4.00 - 5.21 x10(6)/[facility] Hemoglobin 13.8 11.7 - 15.5 g/dL [facility] Hematocrit 41.0 35.7 - 45.8 % [facility] Mean Cell Volume 92.8 82.6 - 94.4 fL [facility] Mean Cell Hemoglobin 31.2 27.1 - 32.0 pg [facility] Mean Cell Hemoglobin Concentration 33.7 31.7 - 35.0 g/dL [facility] Platelet 255 145 - 357 x10(3)/[facility]ORATORY RDW Standard Deviation 44.8 37.0 - 46.0 [facility]ATORY RDW coefficient of variation 13.2 11.5 - 14.1 % [facility] Mean Platelet Volume 10.6 7.6 - 12.9 fL [facility] NRBC% auto 0.0 % [facility] NRBC Absolute 0.000 0.000 - 0.000 x10(3)/[facility] Blood 07/07/2023 3:51 AM EDT 07/07/2023 4:08 AM EDT Narrative Resulting Agency Comment Spec In Lab Terrence Keating MD HEMATOLOGY ORDERABLE S [facility] [place] [address] * Heparin (unfractionated) Level (07/07/2023 3:51 AM EDT) UF Heparin 0.33 IU/mL [facility] Lab Terrence Keating MD HEMATOLOGY ORDERABLE S [facility] [place] [address] * (ABNORMAL) Basic Metabolic Panel (non-fasting) (07/07/2023 3:51 AM EDT) Glucose 101 65 - 199 mg/dL [facility] Comment:Diabetes: >=200 mg/d L plus symptoms Blood Urea Nitrogen 18 8 - 18 mg/dL [facility] Creatinine 1.30(H) 0.70 - 1.20 mg/dL [facility] Sodium 135 135 - 145 mmol/L [facility] Potassium 3.5 3.5 - 5.0 mmol/L [facility] Comment: Please note: ??Patients with WBC >100,000 may have falsely elevated Potassium levels. ??For accurate Potassium quantification in these patients send serum separator tube (gold top) for subsequent determinations. ??Contact the Clinical Chemistry Laboratory if there are any questions. Chloride 96(L) 98 - 107 mmol/L [facility] Carbon Dioxide 23 22 - 31 mmol/L [facility] Anion Gap 16(H) 5 - 15 mmol/L [facility] Calcium 9.4 8.5 - 10.5 mg/dL [facility] Est Glomerular Filtration Rate 49(L) >=60 mL/min/1. 73 m?? [facility] [...] MD CHEMISTRY ORDERABL ES Performing Organization Address City/[facility]/ZIP Co de Phone Number [facility] [place] [address] * Phosphorus (07/07/2023 3:51 AM EDT) Phosphorus 4.0 2.5 - 4.5 mg/dL [facility] Blood 07/07/2023 3:51 AM EDT 07/07/2023 4:08 AM EDT Narrative Resulting Agency Comment Spec In Lab Eufemia Copeland MD CHEMISTRY ORDERABL ES Performing Organization Address City/[facility]/ZIP Co de Phone Number [facility] [place] [address] * Magnesium (07/07/2023 3:51 AM EDT) Magnesium 0.87 0.69 - 1.07 mmol/L [facility] Blood 07/07/2023 3:51 AM EDT 07/07/2023 4:08 AM EDT Narrative Resulting Agency Comment Spec In Lab Eufemia Copeland MD CHEMISTRY ORDERABL ES Performing Organization Address [facility]/[place] Co de Phone Number [facility] [place] [address] * Hepatic Function Panel (07/07/2023 3:51 AM EDT) Protein, Total 7.5 6.1 - 8.0 g/dL [facility] Albumin 4.4 3.2 - 5.2 g/dL [facility] Aspartate Aminotransferase 15 0 - 30 unit/L [facility] Alanine Aminotransferase 20 0 - 30 unit/L [facility] Alkaline Phosphatase 54 35 - 105 unit/L [facility] Bilirubin, Total 0.4 0.2 - 1.3 mg/dL [facility] Bilirubin, Direct 0.1 0.0 - 0.3 mg/dL [facility] Blood 07/07/2023 3:51 AM EDT 07/07/2023 4:08 AM EDT Narrative Resulting Agency Comment Spec In Lab Ailyn Irvin MD CHEMISTRY ORDERABLES Performing Organization Address [facility]/[place] Co de Phone Number [facility] [place] [address] * Giardia/Cryptosporidium Antigens ([facility]/CGP/APD/NLH) (07/07/2023 12:38 AM EDT) Giardia Antigen Negative Negative [facility] Comment:Examination for othe r intestinal parasites requires foreign travel history. Cryptosporidium Antigen Negative Negative [facility] Stool 07/07/2023 12:3 8 AM EDT 07/07/2023 7:56 AM EDT Narrative Resulting Agency Comment Spec In Lab Ailyn Irvin MD MICROBIOLOGY - GENER AL ORDERABLES Performing Organization Address City/[facility]/ZIP Co de Phone Number [facility] [place] [address] * Hepatic Function Panel (07/06/2023 3:41 PM EDT) Protein, Total 7.6 6.1 - 8.0 g/dL [facility] Albumin 4.3 3.2 - 5.2 g/dL [facility] Aspartate Aminotransferase 20 0 - 30 unit/L [facility] Alanine Aminotransferase 22 0 - 30 unit/L [facility] Alkaline Phosphatase 58 35 - 105 unit/L [facility] Bilirubin, Total 0.4 0.2 - 1.3 mg/dL [facility] Bilirubin, Direct 0.1 0.0 - 0.3 mg/dL [facility] Blood 07/06/2023 3:41 PM EDT 07/06/2023 4:00 PM EDT Narrative Resulting Agency Comment Spec In Lab Terrence Keating MD CHEMISTRY ORDERABLES Performing Organization Address City/[facility]/ZIP Co de Phone Number [facility] [place] [address] * Hepatic Function Panel (07/06/2023 3:54 AM EDT) Protein, Total 7.6 6.1 - 8.0 g/dL [facility] Albumin 4.3 3.2 - 5.2 g/dL [facility] Aspartate Aminotransferase Not Perf 0 - 30 [facility] Comment: Unable to quantitate due to sample hemolysis. ??Sample redraw suggested. Called by: abimbola, Read back by: Ana Paula Borja, Date/Time:07/06/23 14:08. Alanine Aminotransferase 25 0 - 30 unit/L [facility] Alkaline Phosphatase 58 35 - 105 unit/L [facility] Bilirubin, Total 0.4 0.2 - 1.3 mg/dL [facility] Bilirubin, Direct Not Perf 0.0 - 0.3 [facility] Blood Venous Draw / Unknown 07/06/2023 3:54 AM EDT 07/06/2023 4:18 AM EDT Narrative Resulting Agency Comment Spec In Lab Terrence Keating MD CHEMISTRY ORDERABLES [facility] [place] [address] * (ABNORMAL) Differential, Automated (07/06/2023 3:54 AM EDT) Neutrophil % 56.6 % [facility] Neutrophil Absolute 4.34 1.70 - 6.10 x10(3)/mc L [facility] Lymph % 26.1 % [facility] Lymphocytes Abs 2.0 0.9 - 3.2 x10(3)/mc L [facility] Monocyte % 9.6 % [facility] Monocyte Abs 0.7 0.3 - 0.9 x10(3)/mc L [facility] Eos % 6.6 % [facility] Eosinophils Abs 0.5(H) 0.0 - 0.4 x10(3)/mc L [facility] Basophil % 0.7 % [facility] Baso Absolute 0.0 0.0 - 0.1 x10(3)/mc L [facility] Immature Gran % 0.40 % [facility] Comment: Immature granulocytes(IG's)percentage and absolute count will include metamyelocytes, myelocytes, and promyelocytes. Blood smears from CBCs yielding IG's will be scanned manually for concordance. If this scan disagrees with the automated IG or if promyelocytes are noted, a manual differential will be performed. Immature Gran Absolute 0.03 0.00 - 0.04 x10(3)/mc L [facility] Blood 07/06/2023 3:54 AM EDT 07/06/2023 4:12 AM EDT Narrative Resulting Agency Comment Spec In Lab Terrence Keating MD HEMATOLOGY ORDERABLE S [facility] [place] [address] * (ABNORMAL) Hemogram (07/06/2023 3:54 AM EDT) White Blood Cell 7.7 4.0 - 9.5 x10(3)/mc L [facility] Red Blood Cell 4.62 4.00 - 5.21 x10(6)/mc L [facility] Hemoglobin 14.7 11.7 - 15.5 g/dL [facility] Hematocrit 43.8 35.7 - 45.8 % [facility] Mean Cell Volume 94.8(H) 82.6 - 94.4 [facility] Mean Cell Hemoglobin 31.8 27.1 - 32.0 pg [facility] Mean Cell Hemoglobin Concentration 33.6 31.7 - 35.0 g/dL [facility] Platelet 243 145 - 357 x10(3)/mc L [facility] RDW Standard Deviation 47.2(H) 37.0 - 46.0 [facility] RDW coefficient of variation 13.5 11.5 - 14.1 % [facility] Mean Platelet Volume 10.4 7.6 - 12.9 [facility] NRBC% auto 0.0 % [facility] NRBC Absolute 0.000 0.000 - 0.000 x10(3)/mc L [facility] Blood 07/06/2023 3:54 AM EDT 07/06/2023 4:12 AM EDT Narrative Resulting Agency Comment Spec In Lab Terrence Keating MD HEMATOLOGY ORDERABLE S [facility] [place] [address] * (ABNORMAL) Basic Metabolic Panel (non-fasting) (07/06/2023 3:54 AM EDT) Glucose 107 65 - 199 mg/dL [facility] Comment:Diabetes: >=200 mg/d L plus symptoms Blood Urea Nitrogen 16 8 - 18 mg/dL [facility] Creatinine 1.25(H) 0.70 - 1.20 mg/dL [facility] Sodium 135 135 - 145 mmol/L [facility] Potassium 3.9 3.5 - 5.0 mmol/L [facility] Comment: Please note: ??Patients with WBC >100,000 may have falsely elevated Potassium levels. ??For accurate Potassium quantification in these patients send serum separator tube (gold top) for subsequent determinations. ??Contact the Clinical Chemistry Laboratory if there are any questions. Chloride 98 98 - 107 mmol/L [facility] Carbon Dioxide 23 22 - 31 mmol/L [facility] Anion Gap 14 5 - 15 mmol/L [facility] Calcium 10.0 8.5 - 10.5 mg/dL [facility] Est Glomerular Filtration Rate 51(L) >=60 mL/min/1. 73 m?? [facility] [...] MD CHEMISTRY ORDERABL ES Performing Organization Address [facility]/[place] Co de Phone Number [facility] [place] [address] * Phosphorus (07/06/2023 3:54 AM EDT) Phosphorus 4.5 2.5 - 4.5 mg/dL [facility] Blood 07/06/2023 3:54 AM EDT 07/06/2023 4:18 AM EDT Narrative Resulting Agency Comment Spec In Lab Eufemia Copeland MD CHEMISTRY ORDERABL ES Performing Organization Address [facility]/[place] Co de Phone Number [facility] [place] [address] * Magnesium (07/06/2023 3:54 AM EDT) Magnesium 0.97 0.69 - 1.07 mmol/L [facility] Blood 07/06/2023 3:54 AM EDT 07/06/2023 4:18 AM EDT Narrative Resulting Agency Comment Spec In Lab Eufemia Copeland MD CHEMISTRY ORDERABL ES Performing Organization Address [facility]/[place] Co de Phone Number [facility] [place] [address] * Heparin (unfractionated) Level (07/06/2023 3:54 AM EDT) UF Heparin 0.31 IU/mL [facility] Comment: [...] MD HEMATOLOGY ORDERABLE S Performing Organization Address [facility]/[place] Co de Phone Number [facility] [place] [address] * Amylase (07/05/2023 5:44 PM EDT) Amylase 35 28 - 100 unit/L [facility] Blood 07/05/2023 5:44 PM EDT 07/05/2023 6:00 PM EDT Narrative Resulting Agency Comment Spec In Lab Terrence Keating MD CHEMISTRY ORDERABLES Performing Organization Address [facility] Co de Phone Number [facility] [place] [address] * Lipase (07/05/2023 5:44 PM EDT) Lipase 17 0 - 60 unit/L [facility] Blood 07/05/2023 5:44 PM EDT 07/05/2023 6:00 PM EDT Narrative Resulting Agency Comment Spec In Lab Terrence Keating MD CHEMISTRY ORDERABLES Performing Organization Address [facility]/[place] Co de Phone Number [facility] [place] [address] * (ABNORMAL) Basic Metabolic Panel (non-fasting) (07/05/2023 5:44 PM EDT) Glucose 130 65 - 199 mg/dL [facility] Comment:Diabetes: >=200 mg/d L plus symptoms Blood Urea Nitrogen 17 8 - 18 mg/dL [facility] Creatinine 1.30(H) 0.70 - 1.20 mg/dL [facility] Sodium 134(L) 135 - 145 mmol/L [facility] Potassium 3.7 3.5 - 5.0 mmol/L [facility] Comment: Please note: ??Patients with WBC >100,000 may have falsely elevated Potassium levels. ??For accurate Potassium quantification in these patients send serum separator tube (gold top) for subsequent determinations. ??Contact the Clinical Chemistry Laboratory if there are any questions. Chloride 98 98 - 107 mmol/L [facility] Carbon Dioxide 21(L) 22 - 31 mmol/L [facility] Anion Gap 15 5 - 15 mmol/L [facility] Calcium 9.6 8.5 - 10.5 mg/dL [facility] Est Glomerular Filtration Rate 49(L) >=60 mL/min/1. 73 m?? [facility] [...] In Lab Terrence Keating MD CHEMISTRY ORDERABLES [facility] [place] [address] * Duplex Study Visceral Arteries, Comp (07/05/2023 9:46 AM EDT) VB Text Report Department: Vascular Surgery Lab Patient: [id number] (ROHAN LOIDA) CPT: 07696 Referring Physician: TERRENCE KEATING ?? Phone: Indications: [...] ?Bi-Triphasic ?101 ?11 ?? Hepatic Artery ? Chase-Biphasic ? 123 ?23 ?? Splenic Artery ? Chase-Biphasic ? 122 ?24 ?? Inf Mes Artery [...] 5:05 AM EDT) Neutrophil % 63.0 % [facility] Neutrophil Absolute 5.59 1.70 - 6.10 x10(3)/[facility] Lymph % 22.4 % [facility] Lymphocytes Abs 2.0 0.9 - 3.2 x10(3)/[facility] Monocyte % 9.7 % [facility] Monocyte Abs 0.9 0.3 - 0.9 x10(3)/[facility] Eos % 4.1 % [facility] Eosinophils Abs 0.4 0.0 - 0.4 x10(3)/[facility] Basophil % 0.6 % [facility] Baso Absolute 0.0 0.0 - 0.1 x10(3)/[facility] Immature Gran % 0.20 % [facility] Comment: Immature granulocytes(IG's)percentage and absolute count will include metamyelocytes, myelocytes, and promyelocytes. Blood smears from CBCs yielding IG's will be scanned manually for concordance. If this scan disagrees with the automated IG or if promyelocytes are noted, a manual differential will be performed. Immature Gran Absolute 0.02 0.00 - 0.04 x10(3)/mcL [facility] Blood 07/05/2023 5:05 AM EDT 07/05/2023 5:17 AM EDT Narrative Resulting Agency Comment Spec In Lab Terrence Keating MD HEMATOLOGY ORDERABLE S [facility] [place] [address] * (ABNORMAL) Hemogram (07/05/2023 5:05 AM EDT) White Blood Cell 8.9 4.0 - 9.5 x10(3)/mc L [facility] Red Blood Cell 4.42 4.00 - 5.21 x10(6)/mc L [facility] Hemoglobin 13.7 11.7 - 15.5 g/dL [facility] Hematocrit 41.4 35.7 - 45.8 % [facility] Mean Cell Volume 93.7 82.6 - 94.4 fL [facility] Mean Cell Hemoglobin 31.0 27.1 - 32.0 pg [facility] Mean Cell Hemoglobin Concentration 33.1 31.7 - 35.0 g/dL [facility] Platelet 245 145 - 357 x10(3)/mc L [facility] RDW Standard Deviation 47.1(H) 37.0 - 46.0 [facility] RDW coefficient of variation 13.7 11.5 - 14.1 % [facility] Mean Platelet Volume 10.8 7.6 - 12.9 [facility] NRBC% auto 0.0 % [facility] NRBC Absolute 0.000 0.000 - 0.000 x10(3)/mc L [facility] Blood 07/05/2023 5:05 AM EDT 07/05/2023 5:17 AM EDT Narrative Resulting Agency Comment Spec In Lab Terrence Keating MD HEMATOLOGY ORDERABLE S Performing Organization Address City/[facility]/ZIP Co de Phone Number [facility] [place] [address] * Heparin (unfractionated) Level (07/05/2023 5:05 AM EDT) Pathologist [facility] UF Heparin 0.35 IU/mL [facility] Comment: [...] Lab Ailyn Irvin MD HEMATOLOGY ORDERABLE S [facility] [place] [address] * (ABNORMAL) Basic Metabolic Panel (non-fasting) (07/05/2023 5:05 AM EDT) [facility] Glucose 114 65 - 199 mg/dL [facility] Comment:Diabetes: >=200 mg/d L plus symptoms Blood Urea Nitrogen 19(H) 8 - 18 mg/dL [facility] Creatinine 1.51(H) 0.70 - 1.20 mg/dL [facility] Sodium 134(L) 135 - 145 mmol/L [facility] Potassium 3.8 3.5 - 5.0 mmol/L [facility] Comment: Please note: ??Patients with WBC >100,000 may have falsely elevated Potassium levels. ??For accurate Potassium quantification in these patients send serum separator tube (gold top) for subsequent determinations. ??Contact the Clinical Chemistry Laboratory if there are any questions. Chloride 97(L) 98 - 107 mmol/L [facility] Carbon Dioxide 25 22 - 31 mmol/L [facility] Anion Gap 12 5 - 15 mmol/L [facility] Calcium 10.0 8.5 - 10.5 mg/dL [facility] Est Glomerular Filtration Rate 41(L) >=60 mL/min/1. 73 m?? [facility] [...] MD CHEMISTRY ORDERABL ES Performing Organization Address [facility]/[place] Co de Phone Number [facility] [place] [address] * (ABNORMAL) Phosphorus (07/05/2023 5:05 AM EDT) Phosphorus 5.0(H) 2.5 - 4.5 mg/dL [facility] Blood 07/05/2023 5:05 AM EDT 07/05/2023 5:17 AM EDT Narrative Resulting Agency Comment Spec In Lab Eufemia Copeland MD CHEMISTRY ORDERABL ES Performing Organization Address City/[facility]/ZIP Co de Phone Number [facility] [place] [address] * Magnesium (07/05/2023 5:05 AM EDT) Pathologist [facility] Magnesium 1.01 0.69 - 1.07 mmol/L [facility] Blood 07/05/2023 5:05 AM EDT 07/05/2023 5:17 AM EDT Narrative Resulting Agency Comment Spec In Lab Eufemia Copeland MD CHEMISTRY ORDERABL ES Performing Organization Address [facility]/[place] Co de Phone Number [facility] [place] [address] * EKG 12 Lead (07/04/2023 11:41 AM EDT) [facility] Ventricular rate 76 BPM MUSE SYSTEM Atrial Rate 76 BPM MUSE SYSTEM P-R Interval 174 ms MUSE SYSTEM QRS Duration 88 ms MUSE SYSTEM Q-T Interval 450 ms MUSE SYSTEM QTC Calculated (Bezet) 506 ms MUSE SYSTEM Calculated P [place] 36 degrees MUSE SYSTEM Calculated R [place] 35 degrees MUSE SYSTEM Calculated T [place] 37 degrees MUSE SYSTEM INTERPRETATION Normal sinus [...] Beck MD ECG ORDERABLES Performing Organization Address [facility]/[place] Co de Phone Number MUSE SYSTEM * Differential, Automated (07/04/2023 3:47 AM EDT) Pathologist [facility] Neutrophil % 63.5 % [facility] Neutrophil Absolute 5.19 1.70 - 6.10 x10(3)/mcL [facility] Lymph % 24.4 % [facility] Lymphocytes Abs 2.0 0.9 - 3.2 x10(3)/[facility] LABORATORY Monocyte % 8.1 % [facility] Monocyte Abs 0.7 0.3 - 0.9 x10(3)/[facility] LABORATORY Eos % 3.4 % [facility] Eosinophils Abs 0.3 0.0 - 0.4 x10(3)/[facility] LABORATORY Basophil % 0.4 % [facility] LABORATORY Baso Absolute 0.0 0.0 - 0.1 x10(3)/[facility] LABORATORY Immature Gran % 0.20 % [facility]OR[facility]ORY Comment: Immature granulocytes(IG's)percentage and absolute count will include metamyelocytes, myelocytes, and promyelocytes. Blood smears from CBCs yielding IG's will be scanned manually for concordance. If this scan disagrees with the automated IG or if promyelocytes are noted, a manual differential will be performed. Immature Gran Absolute 0.02 0.00 - 0.04 x10(3)/[facility] LABORATORY Blood 07/04/2023 3:47 AM EDT 07/04/2023 4:15 AM EDT Narrative Resulting Agency Comment Spec In Lab Terrence Keating MD HEMATOLOGY ORDERABLE S [facility] [place] [address] * (ABNORMAL) Hemogram (07/04/2023 3:47 AM EDT) White Blood Cell 8.2 4.0 - 9.5 x10(3)/ L [facility] Red Blood Cell 4.26 4.00 - 5.21 x10(6)/ L [facility] Hemoglobin 13.5 11.7 - 15.5 g/dL [facility] Hematocrit 40.0 35.7 - 45.8 % [facility] Mean Cell Volume 93.9 82.6 - 94.4 fL [facility] Mean Cell Hemoglobin 31.7 27.1 - 32.0 pg [facility] Mean Cell Hemoglobin Concentration 33.8 31.7 - 35.0 g/dL [facility] Platelet 219 145 - 357 x10(3)/mc L [facility] RDW Standard Deviation 47.0(H) 37.0 - 46.0 fL [facility] RDW coefficient of variation 13.7 11.5 - 14.1 % [facility] Mean Platelet Volume 11.0 7.6 - 12.9 fL [facility] NRBC% auto 0.0 % [facility] NRBC Absolute 0.000 0.000 - 0.000 x10(3)/mc L [facility] Blood 07/04/2023 3:47 AM EDT 07/04/2023 4:15 AM EDT Narrative Resulting Agency Comment Spec In Lab Terrence Keating MD HEMATOLOGY ORDERABLE S [facility] [place] [address] * Heparin (unfractionated) Level (07/04/2023 3:47 AM EDT) UF Heparin 0.44 IU/mL [facility] Comment: [...] Lab Ailyn Irvin MD HEMATOLOGY ORDERABLE S [facility] [place] [address] * (ABNORMAL) Basic Metabolic Panel (non-fasting) (07/04/2023 3:47 AM EDT) Glucose 104 65 - 199 mg/dL [facility] Comment:Diabetes: >=200 mg/d L plus symptoms Blood Urea Nitrogen 16 8 - 18 mg/dL [facility] Creatinine 1.28(H) 0.70 - 1.20 mg/dL [facility] [...] questions. Chloride 102 98 - 107 mmol/L [facility] Carbon Dioxide 21(L) 22 - 31 mmol/L [facility] Anion Gap 16(H) 5 - 15 mmol/L [facility] Calcium 9.5 8.5 - 10.5 mg/dL [facility] Est Glomerular Filtration Rate 50(L) >=60 mL/min/1. 73 m?? [facility] [...] MD CHEMISTRY ORDERABL ES Performing Organization Address [facility] de Phone Number [facility] [place] [address] * (ABNORMAL) Phosphorus (07/04/2023 3:47 AM EDT) Phosphorus 4.9(H) 2.5 - 4.5 mg/dL [facility] Blood 07/04/2023 3:47 AM EDT 07/04/2023 4:15 AM EDT Narrative Resulting Agency Comment Spec In Lab Eufemia Copeland MD CHEMISTRY ORDERABL ES Performing Organization Address [facility] de Phone Number [facility] [place] [address] * Magnesium (07/04/2023 3:47 AM EDT) Magnesium 1.05 0.69 - 1.07 mmol/L [facility] Blood 07/04/2023 3:47 AM EDT 07/04/2023 4:15 AM EDT Narrative Resulting Agency Comment Spec In Lab Eufemia Copeland MD CHEMISTRY ORDERABL ES Performing Organization Address [facility] de Phone Number [facility] [place] [address] * EKG 12 Lead (07/03/2023 9:36 PM EDT) Ventricular rate 61 BPM MUSE SYSTEM Atrial Rate 61 BPM MUSE SYSTEM P-R Interval 188 ms MUSE SYSTEM QRS Duration 88 ms MUSE SYSTEM Q-T Interval 512 ms MUSE SYSTEM QTC Calculated (Bezet) 515 ms MUSE SYSTEM Calculated P [place] 56 degrees MUSE SYSTEM Calculated R [place] 69 degrees MUSE SYSTEM Calculated T [place] 29 degrees MUSE SYSTEM INTERPRETATION Normal sinus rhythm Possible Lateral infarct (cited on or before 30-JUN-2023) Marked ST abnormality, possible inferior subendocardial injury Prolonged QT Abnormal ECG When compared with ECG of 03-JUL-2023 14:27, Nonspecific T wave abnormality no longer evident in Anterior leads Confirmed by MD Beatriz, Klarissa (Ashley) on 07/05/2023 6:21:08 AM MUSE SYSTEM 07/03/2023 9:36 PM EDT 07/05/2023 6:21 AM EDT Lisa Beck MD ECG ORDERABLES MUSE SYSTEM * Magnesium (07/03/2023 6:00 PM EDT) Magnesium 0.89 0.69 - 1.07 mmol/L [facility] Blood 07/03/2023 6:00 PM EDT 07/03/2023 6:07 PM EDT Narrative Resulting Agency Comment Spec In Lab Lino Calles MD CHEMISTRY ORDERABLES Performing Organization Address City/[facility]/ZIP Co de Phone Number [facility] [place] [address] * (ABNORMAL) Basic Metabolic Panel (non-fasting) (07/03/2023 6:00 PM EDT) Glucose 116 65 - 199 mg/dL [facility] Comment:Diabetes: >=200 mg/d L plus symptoms Blood Urea Nitrogen 16 8 - 18 mg/dL [facility] Creatinine 1.37(H) 0.70 - 1.20 mg/dL [facility] Sodium 137 135 - 145 mmol/L [facility] Potassium 4.1 3.5 - 5.0 mmol/L [facility] Comment: Please note: ??Patients with WBC >100,000 may have falsely elevated Potassium levels. ??For accurate Potassium quantification in these patients send serum separator tube (gold top) for subsequent determinations. ??Contact the Clinical Chemistry Laboratory if there are any questions. Chloride 102 98 - 107 mmol/L [facility] Carbon Dioxide 21(L) 22 - 31 mmol/L [facility] Anion Gap 14 5 - 15 mmol/L [facility] Calcium 9.5 8.5 - 10.5 mg/dL [facility] Est Glomerular Filtration Rate 46(L) >=60 mL/min/1. 73 m?? [facility] [...] In Lab Lino Calles MD CHEMISTRY ORDERABLES [facility] [place] [address] * XR Chest One View (07/03/2023 3:18 PM EDT) Iagnosis WORKSTATION ID [id number] DH RAD Anatomical Region Laterality Modality Chest N/A Digital Radiogra phy Impressions 07/03/2023 3:27 PM EDT No pulmonary edema or pleural effusion Thank you for letting us participate in the care of this patient. ??If you are a health care provider and have any questions regarding this report, please contact the number below. ??For patients who have questions please contact the health cna caregiver that requested your imaging first. ? Electronically signed by: Itz Hayward MD, [facility] ??([phone]), at 07/03/2023 3:27 PM Narrative 07/03/2023 3:27 [...] patients who have questions please contactthe health cna caregiver that requested your imaging first. Electronically signed by: Itz Hayward MD, [facility]([phone]), at 07/03/2023 3:27 PM Lino Calles MD IMG DX ORDERABLES * Arterial Duplex Leg, Unil (07/03/2023 9:34 AM EDT) VB Text Report Department: Vascular Surgery Lab Patient: [id number] (LOIDA ROQUE) CPT: 31940 Referring Physician: LINO CALLES ?? Phone: Indications: [...] 3:07 AM EDT) Neutrophil % 67.2 % [facility] LABORATORY Neutrophil Absolute 5.51 1.70 - 6.10 x10(3)/[facility] LABORATORY Lymph % 20.7 % [facility] LABORATORY Lymphocytes Abs 1.7 0.9 - 3.2 x10(3)/[facility] LABORATORY Monocyte % 7.7 % [facility] LABORATORY Monocyte Abs 0.6 0.3 - 0.9 x10(3)/[facility] LABORATORY Eos % 3.7 % [facility] LABORATORY Eosinophils Abs 0.3 0.0 - 0.4 x10(3)/[facility] LABORATORY Basophil % 0.5 % [facility] LABORATORY Baso Absolute 0.0 0.0 - 0.1 x10(3)/[facility] LABORATORY Immature Gran % 0.20 % [facility] Comment: Immature granulocytes(IG's)percentage and absolute count will include metamyelocytes, myelocytes, and promyelocytes. Blood smears from CBCs yielding IG's will be scanned manually for concordance. If this scan disagrees with the automated IG or if promyelocytes are noted, a manual differential will be performed. Immature Gran Absolute 0.02 0.00 - 0.04 x10(3)/[facility] LABORATORY Blood 07/03/2023 3:07 AM EDT 07/03/2023 3:15 AM EDT Narrative Resulting Agency Comment Spec In Lab Terrence Keating MD HEMATOLOGY ORDERABLE S [facility] [place] [address] * (ABNORMAL) Hemogram (07/03/2023 3:07 AM EDT) White Blood Cell 8.2 4.0 - 9.5 x10(3)/mc L [facility] Red Blood Cell 3.97(L) 4.00 - 5.21 x10(6)/mc L [facility] Hemoglobin 12.5 11.7 - 15.5 g/dL [facility] Hematocrit 38.5 35.7 - 45.8 % [facility] Mean Cell Volume 97.0(H) 82.6 - 94.4 fL [facility] Mean Cell Hemoglobin 31.5 27.1 - 32.0 pg [facility] Mean Cell Hemoglobin Concentration 32.5 31.7 - 35.0 g/dL [facility] Platelet 203 145 - 357 x10(3)/mc L [facility] RDW Standard Deviation 49.6(H) 37.0 - 46.0 fL [facility] RDW coefficient of variation 13.7 11.5 - 14.1 % [facility] Mean Platelet Volume 10.8 7.6 - 12.9 fL [facility] NRBC% auto 0.0 % [facility] NRBC Absolute 0.000 0.000 - 0.000 x10(3)/mc L [facility] Blood 07/03/2023 3:07 AM EDT 07/03/2023 3:15 AM EDT Narrative Resulting Agency Comment Spec In Lab Terrence Keating MD HEMATOLOGY ORDERABLE S Performing Organization Address [facility]/ZIP Co de Phone Number [facility] [place] [address] * Heparin (unfractionated) Level (07/03/2023 3:07 AM EDT) UF Heparin 0.49 IU/mL [facility] Comment: [...] Lab Ailyn Irvin MD HEMATOLOGY ORDERABLE S [facility] [place] [address] * (ABNORMAL) Basic Metabolic Panel (non-fasting) (07/03/2023 3:07 AM EDT) Glucose 104 65 - 199 mg/dL [facility] Comment:Diabetes: >=200 mg/d L plus symptoms Blood Urea Nitrogen 16 8 - 18 mg/dL [facility] Creatinine 1.20 0.70 - 1.20 mg/dL [facility] [...] - 107 mmol/L [facility] Carbon Dioxide 20(L) 22 - 31 mmol/L [facility] Anion Gap 11 5 - 15 mmol/L [facility] Calcium 8.8 8.5 - 10.5 mg/dL [facility] Est Glomerular Filtration Rate 54(L) >=60 mL/min/1. 73 m?? [facility] [...] MD CHEMISTRY ORDERABL ES Performing Organization Address [facility] Co de Phone Number [facility] [place] [address] * Phosphorus (07/03/2023 3:07 AM EDT) Phosphorus 3.6 2.5 - 4.5 mg/dL [facility] Blood 07/03/2023 3:07 AM EDT 07/03/2023 3:15 AM EDT Narrative Resulting Agency Comment Spec In Lab Eufemia Copeland MD CHEMISTRY ORDERABL ES Performing Organization Address [facility] Co de Phone Number [facility] [place] [address] * Magnesium (07/03/2023 3:07 AM EDT) Magnesium 0.93 0.69 - 1.07 mmol/L [facility] Blood 07/03/2023 3:07 AM EDT 07/03/2023 3:15 AM EDT Narrative Resulting Agency Comment Spec In Lab Eufemia Copeland MD CHEMISTRY ORDERABL ES Performing Organization Address [facility] Co de Phone Number [facility] [place] [address] * Heparin (unfractionated) Level (07/02/2023 8:58 PM EDT) UF Heparin 0.60 IU/mL [facility] Comment: [...] Lab Lino Calles MD HEMATOLOGY ORDERABLE S [facility] [place] [address] * VS Arteriogram Mesenteric Vascular Surgery (07/02/2023 [...] anesthetic: 10 cc 1% lidocaine Heparin: Yes 92243 ?? Units Protamine: No ??mg Antibiotics: Ancef [...] We exchanged the sheath for a 7 [place] personal injury legal assistant steerable sheath over a stiff wire. ??A Glidewire and Kumpe catheter were used to selectively cannulate the superior mesenteric artery. ??Direct angiography of the superior mesenteric artery was performed, confirming the results of the nonselective aortography performed. ??The lesion was predilated with a 4 mm x 40 mm [place] balloon, and then a 6 mm X [...] MD 07/07/2023 10:48 AM Ailyn Irvin MD [facility] IR ORDERABLES * Differential, Automated (07/02/2023 3:58 AM EDT) Neutrophil % 61.3 % [facility] LABORATORY Neutrophil Absolute 4.67 1.70 - 6.10 x10(3)/[facility] LABORATORY Lymph % 27.6 % [facility] Lymphocytes Abs 2.1 0.9 - 3.2 x10(3)/[facility] LABORATORY Monocyte % 6.4 % [facility] Monocyte Abs 0.5 0.3 - 0.9 x10(3)/[facility] LABORATORY Eos % 3.9 % [facility] Eosinophils Abs 0.3 0.0 - 0.4 x10(3)/[facility] LABORATORY Basophil % 0.5 % [facility] Baso Absolute 0.0 0.0 - 0.1 x10(3)/[facility] LABORATORY Immature Gran % 0.30 % [facility] Comment: Immature granulocytes(IG's)percentage and absolute count will include metamyelocytes, myelocytes, and promyelocytes. Blood smears from CBCs yielding IG's will be scanned manually for concordance. If this scan disagrees with the automated IG or if promyelocytes are noted, a manual differential will be performed. Immature Gran Absolute 0.02 0.00 - 0.04 x10(3)/[facility] LABORATORY Blood 07/02/2023 3:58 AM EDT 07/02/2023 4:14 AM EDT Narrative Resulting Agency Comment Spec In Lab Terrence Keating MD HEMATOLOGY ORDERABLE S [facility] [place] [address] * (ABNORMAL) Hemogram (07/02/2023 3:58 AM EDT) White Blood Cell 7.6 4.0 - 9.5 x10(3)/ L [facility] Red Blood Cell 4.12 4.00 - 5.21 x10(6)/[facility] LABORATORY Hemoglobin 12.9 11.7 - 15.5 g/dL [facility] Hematocrit 39.5 35.7 - 45.8 % [facility] Mean Cell Volume 95.9(H) 82.6 - 94.4 fL [facility] Mean Cell Hemoglobin 31.3 27.1 - 32.0 pg [facility] Mean Cell Hemoglobin Concentration 32.7 31.7 - 35.0 g/dL [facility] Platelet 200 145 - 357 x10(3)/ L [facility] RDW Standard Deviation 47.4(H) 37.0 - 46.0 fL [facility] RDW coefficient of variation 13.3 11.5 - 14.1 % [facility] Mean Platelet Volume 10.8 7.6 - 12.9 fL [facility] NRBC% auto 0.0 % [facility] NRBC Absolute 0.000 0.000 - 0.000 x10(3)/mc L [facility] Blood 07/02/2023 3:58 AM EDT 07/02/2023 4:14 AM EDT Narrative Resulting Agency Comment Spec In Lab Terrence Keating MD HEMATOLOGY ORDERABLE S Performing Organization Address City/[facility]/ZIP Co de Phone Number [facility] [place] [address] * Heparin (unfractionated) Level (07/02/2023 3:58 AM EDT) UF Heparin 0.57 IU/mL [facility] Comment: [...] MD HEMATOLOGY ORDERABLE S Performing Organization Address City/[facility]/ZIP Co de Phone Number [facility] [place] [address] * (ABNORMAL) Basic Metabolic Panel (non-fasting) (07/02/2023 3:58 AM EDT) Glucose 96 65 - 199 mg/dL [facility] Comment:Diabetes: >=200 mg/d L plus symptoms Blood Urea Nitrogen 15 8 - 18 mg/dL [facility] Creatinine 1.21(H) 0.70 - 1.20 mg/dL [facility] Sodium 133(L) 135 - 145 mmol/L [facility] Potassium 4.1 3.5 - 5.0 mmol/L [facility] Comment: Please note: ??Patients with WBC >100,000 may have falsely elevated Potassium levels. ??For accurate Potassium quantification in these patients send serum separator tube (gold top) for subsequent determinations. ??Contact the Clinical Chemistry Laboratory if there are any questions. Chloride 104 98 - 107 mmol/L [facility] Carbon Dioxide 21(L) 22 - 31 mmol/L [facility] Anion Gap 8 5 - 15 mmol/L [facility] Calcium 8.8 8.5 - 10.5 mg/dL [facility] Est Glomerular Filtration Rate 53(L) >=60 mL/min/1. 73 m?? [facility] [...] MD CHEMISTRY ORDERABL ES Performing Organization Address [facility]/ZIP Co de Phone Number [facility] [place] [address] * Phosphorus (07/02/2023 3:58 AM EDT) Phosphorus 3.8 2.5 - 4.5 mg/dL [facility] Blood 07/02/2023 3:58 AM EDT 07/02/2023 4:14 AM EDT Narrative Resulting Agency Comment Spec In Lab Eufemia Copeland MD CHEMISTRY ORDERABL ES Performing Organization Address [facility] Co de Phone Number [facility] [place] [address] * Magnesium (07/02/2023 3:58 AM EDT) Magnesium 0.95 0.69 - 1.07 mmol/L [facility] Blood 07/02/2023 3:58 AM EDT 07/02/2023 4:14 AM EDT Narrative Resulting Agency Comment Spec In Lab Eufemia Copeland MD CHEMISTRY ORDERABL ES Performing Organization Address [facility] Co de Phone Number [facility] [place] [address] * EKG 12 Lead (07/01/2023 12:08 PM EDT) Ventricular rate 48 BPM MUSE SYSTEM Atrial Rate 48 BPM MUSE SYSTEM P-R Interval 192 ms MUSE SYSTEM QRS Duration 92 ms MUSE SYSTEM Q-T Interval 474 ms MUSE SYSTEM QTC Calculated (Bezet) 423 ms MUSE SYSTEM Calculated P [place] 32 degrees MUSE SYSTEM Calculated R [place] 45 degrees MUSE SYSTEM Calculated T [place] 0 degrees MUSE SYSTEM INTERPRETATION Sinus bradycardia [...] 2:56 AM EDT) Neutrophil % 50.5 % [facility] Neutrophil Absolute 3.47 1.70 - 6.10 x10(3)/[facility] LABORATORY Lymph % 36.5 % [facility] Lymphocytes Abs 2.5 0.9 - 3.2 x10(3)/[facility] LABORATORY Monocyte % 7.7 % [facility] Monocyte Abs 0.5 0.3 - 0.9 x10(3)/[facility] LABORATORY Eos % 4.5 % [facility] Eosinophils Abs 0.3 0.0 - 0.4 x10(3)/[facility] LABORATORY Basophil % 0.7 % [facility] Baso Absolute 0.0 0.0 - 0.1 x10(3)/[facility] LABORATORY Immature Gran % 0.10 % [facility] Comment: Immature granulocytes(IG's)percentage and absolute count will include metamyelocytes, myelocytes, and promyelocytes. Blood smears from CBCs yielding IG's will be scanned manually for concordance. If this scan disagrees with the automated IG or if promyelocytes are noted, a manual differential will be performed. Immature Gran Absolute 0.01 0.00 - 0.04 x10(3)/[facility] LABORATORY Blood 07/01/2023 2:56 AM EDT 07/01/2023 3:22 AM EDT Narrative Resulting Agency Comment Spec In Lab Terrence Keating MD HEMATOLOGY ORDERABLE S [facility] [place] [address] * (ABNORMAL) Hemogram (07/01/2023 2:56 AM EDT) White Blood Cell 6.9 4.0 - 9.5 x10(3)/mc L [facility] Red Blood Cell 4.04 4.00 - 5.21 x10(6)/ L [facility] Hemoglobin 12.8 11.7 - 15.5 g/dL [facility] Hematocrit 39.0 35.7 - 45.8 % [facility] Mean Cell Volume 96.5(H) 82.6 - 94.4 fL [facility] Mean Cell Hemoglobin 31.7 27.1 - 32.0 pg [facility] Mean Cell Hemoglobin Concentration 32.8 31.7 - 35.0 g/dL [facility] Platelet 224 145 - 357 x10(3)/[facility] LABORATORY RDW Standard Deviation 47.8(H) 37.0 - 46.0 fL [facility] RDW coefficient of variation 13.3 11.5 - 14.1 % [facility] Mean Platelet Volume 11.1 7.6 - 12.9 fL [facility] NRBC% auto 0.0 % [facility] NRBC Absolute 0.000 0.000 - 0.000 x10(3)/[facility] LABORATORY Blood 07/01/2023 2:56 AM EDT 07/01/2023 3:22 AM EDT Narrative Resulting Agency Comment Spec In Lab Terrence Keating MD HEMATOLOGY ORDERABLE S [facility] [place] [address] * Heparin (unfractionated) Level (07/01/2023 2:56 AM EDT) Pathologist [facility] UF Heparin 0.56 IU/mL [facility] Comment: Heparin (anti-Xa) levels [...] Lab Ailyn Irvin MD HEMATOLOGY ORDERABLE S [facility] [place] [address] * (ABNORMAL) Basic Metabolic Panel (non-fasting) (07/01/2023 2:56 AM EDT) Glucose 95 65 - 199 mg/dL [facility] Comment:Diabetes: >=200 mg/d L plus symptoms Blood Urea Nitrogen 16 8 - 18 mg/dL [facility] Creatinine 1.21(H) 0.70 - 1.20 mg/dL [facility] Sodium 137 135 - 145 mmol/L [facility] Potassium 4.1 3.5 - 5.0 mmol/L [facility] Comment: Please note: ??Patients with WBC >100,000 may have falsely elevated Potassium levels. ??For accurate Potassium quantification in these patients send serum separator tube (gold top) for subsequent determinations. ??Contact the Clinical Chemistry Laboratory if there are any questions. Chloride 105 98 - 107 mmol/L [facility] Carbon Dioxide 22 22 - 31 mmol/L [facility] Anion Gap 10 5 - 15 mmol/L [facility] Calcium 9.0 8.5 - 10.5 mg/dL [facility] Est Glomerular Filtration Rate 53(L) >=60 mL/min/1. 73 m?? [facility] [...] MD CHEMISTRY ORDERABL ES Performing Organization Address [facility] Co de Phone Number [facility] [place] [address] * Phosphorus (07/01/2023 2:56 AM EDT) Phosphorus 4.1 2.5 - 4.5 mg/dL [facility] Blood 07/01/2023 2:56 AM EDT 07/01/2023 3:22 AM EDT Narrative Resulting Agency Comment Spec In Lab Eufemia Copeland MD CHEMISTRY ORDERABL ES [facility] [place] [address] * Magnesium (07/01/2023 2:56 AM EDT) Magnesium 0.95 0.69 - 1.07 mmol/L [facility] Blood 07/01/2023 2:56 AM EDT 07/01/2023 3:22 AM EDT Narrative Resulting Agency Comment Spec In Lab Eufemia Copeland MD CHEMISTRY ORDERABL ES Performing Organization Address City/[facility]/ZIP Co de Phone Number [facility] [place] [address] * Heparin (unfractionated) Level (06/30/2023 9:24 AM EDT) [facility] UF Heparin 0.62 IU/mL [facility] Comment: [...] Lab Ailyn Irvin MD HEMATOLOGY ORDERABLE S [facility] [place] [address] * Differential, Automated (06/30/2023 3:14 AM EDT) [facility] Neutrophil % 49.5 % [facility] Neutrophil Absolute 3.96 1.70 - 6.10 x10(3)/[facility] LABORATORY Lymph % 36.6 % [facility] Lymphocytes Abs 2.9 0.9 - 3.2 x10(3)/[facility] LABORATORY Monocyte % 8.6 % [facility] Monocyte Abs 0.7 0.3 - 0.9 x10(3)/[facility] LABORATORY Eos % 4.1 % [facility] Eosinophils Abs 0.3 0.0 - 0.4 x10(3)/[facility] LABORATORY Basophil % 0.8 % [facility] LABORATORY Baso Absolute 0.1 0.0 - 0.1 x10(3)/[facility] LABORATORY Immature Gran % 0.40 % [facility] Comment: Immature granulocytes(IG's)percentage and absolute count will include metamyelocytes, myelocytes, and promyelocytes. Blood smears from CBCs yielding IG's will be scanned manually for concordance. If this scan disagrees with the automated IG or if promyelocytes are noted, a manual differential will be performed. Immature Gran Absolute 0.03 0.00 - 0.04 x10(3)/[facility] LABORATORY Blood 06/30/2023 3:14 AM EDT 06/30/2023 3:23 AM EDT Narrative Resulting Agency Comment Spec In Lab Terrence Keating MD HEMATOLOGY ORDERABLE S [facility] [place] [address] * Hemogram (06/30/2023 3:14 AM EDT) White Blood Cell 8.0 4.0 - 9.5 x10(3)/[facility] LABORATORY Red Blood Cell 4.22 4.00 - 5.21 x10(6)/[facility] LABORATORY Hemoglobin 13.1 11.7 - 15.5 g/dL [facility] Hematocrit 39.5 35.7 - 45.8 % [facility] Mean Cell Volume 93.6 82.6 - 94.4 fL [facility] Mean Cell Hemoglobin 31.0 27.1 - 32.0 pg [facility] Mean Cell Hemoglobin Concentration 33.2 31.7 - 35.0 g/dL [facility] Platelet 235 145 - 357 x10(3)/[facility] LABORATORY RDW Standard Deviation 45.3 37.0 - 46.0 fL [facility] RDW coefficient of variation 13.3 11.5 - 14.1 % [facility] Mean Platelet Volume 11.0 7.6 - 12.9 fL [facility] NRBC% auto 0.0 % [facility] NRBC Absolute 0.000 0.000 - 0.000 x10(3)/mcL [facility] Blood 06/30/2023 3:14 AM EDT 06/30/2023 3:23 AM EDT Narrative Resulting Agency Comment Spec In Lab Terrence Keating MD HEMATOLOGY ORDERABLE S Performing Organization Address [facility]/[place] Co de Phone Number [facility] [place] [address] * Heparin (unfractionated) Level (06/30/2023 3:14 AM EDT) UF Heparin 0.70 IU/mL [facility] Comment: [...] MD HEMATOLOGY ORDERABLE S Performing Organization Address [facility]/[place] Co de Phone Number [facility] [place] [address] * (ABNORMAL) Basic Metabolic Panel (non-fasting) (06/30/2023 3:14 AM EDT) Glucose 103 65 - 199 mg/dL [facility] Comment:Diabetes: >=200 mg/d L plus symptoms Blood Urea Nitrogen 18 8 - 18 mg/dL [facility] Creatinine 1.22(H) 0.70 - 1.20 mg/dL [facility] Sodium 137 135 - 145 mmol/L [facility] Potassium 3.8 3.5 - 5.0 mmol/L [facility] Comment: Please note: ??Patients with WBC >100,000 may have falsely elevated Potassium levels. ??For accurate Potassium quantification in these patients send serum separator tube (gold top) for subsequent determinations. ??Contact the Clinical Chemistry Laboratory if there are any questions. Chloride 104 98 - 107 mmol/L [facility] Carbon Dioxide 23 22 - 31 mmol/L [facility] Anion Gap 10 5 - 15 mmol/L [facility] Calcium 9.1 8.5 - 10.5 mg/dL [facility] Est Glomerular Filtration Rate 53(L) >=60 mL/min/1. 73 m?? [facility] [...] Lab Eufemia Copeland MD CHEMISTRY ORDERABL ES [facility] [place] [address] * Phosphorus (06/30/2023 3:14 AM EDT) Phosphorus 4.4 2.5 - 4.5 mg/dL [facility] Blood 06/30/2023 3:14 AM EDT 06/30/2023 3:23 AM EDT Narrative Resulting Agency Comment Spec In Lab Eufemia Copeland MD CHEMISTRY ORDERABL ES Performing Organization Address [facility]/ZIP Co de Phone Number [facility] [place] [address] * Magnesium (06/30/2023 3:14 AM EDT) Magnesium 0.94 0.69 - 1.07 mmol/L [facility] Blood 06/30/2023 3:14 AM EDT 06/30/2023 3:23 AM EDT Narrative Resulting Agency Comment Spec In Lab Eufemia Copeland MD CHEMISTRY ORDERABL ES Performing Organization Address [facility]/[place] Co de Phone Number [facility] [place] [address] * Heparin (unfractionated) Level (06/29/2023 8:47 PM EDT) UF Heparin 0.75 IU/mL [facility] Comment: [...] MD HEMATOLOGY ORDERABLE S Performing Organization Address City/[facility]/ZIP Co de Phone Number [facility] [place] [address] * EKG 12 Lead (06/29/2023 12:55 PM EDT) Ventricular rate 53 BPM MUSE SYSTEM Atrial Rate 53 BPM MUSE SYSTEM P-R Interval 196 ms MUSE SYSTEM QRS Duration 90 ms MUSE SYSTEM Q-T Interval 564 ms MUSE SYSTEM QTC Calculated (Bezet) 529 ms MUSE SYSTEM Calculated P [place] 30 degrees MUSE SYSTEM Calculated R [place] 53 degrees MUSE SYSTEM Calculated T [place] 5 degrees MUSE SYSTEM INTERPRETATION Sinus bradycardia Marked ST abnormality, possible inferior subendocardial injury Prolonged QT Abnormal ECG When compared with ECG of 26-JUN-2023 06:04, Nonspecific T wave abnormality no longer evident in Anterolateral leads QT has lengthened Confirmed by MD Petey, Kia ([id number]) on 06/29/2023 8:34:43 PM MUSE SYSTEM 06/29/2023 12:5 5 PM EDT 06/29/2023 8:34 PM EDT Terrence Keating MD ECG ORDERABLES Performing Organization Address [facility]/[place] Co de Phone Number MUSE SYSTEM * (ABNORMAL) Heparin (unfractionated) Level (06/29/2023 11:34 AM EDT) Pathologist [facility] UF Heparin 1.41(Crit ical) IU/mL [facility] Comment: Critical Result called by ?? NAZARIOJTalia CRITICAL Results read back by: ? Chilo [...] Lab Ailyn Irvin MD HEMATOLOGY ORDERABLE S [facility] [place] [address] * Differential, Automated (06/29/2023 2:39 AM EDT) Neutrophil % 53.8 % [facility] LABOR[facility]ORY Neutrophil Absolute 4.46 1.70 - 6.10 x10(3)/[facility] LABORATORY Lymph % 33.5 % [facility]OR[facility]ORY Lymphocytes Abs 2.8 0.9 - 3.2 x10(3)/[facility] LABORATORY Monocyte % 8.3 % [facility] Monocyte Abs 0.7 0.3 - 0.9 x10(3)/[facility] LABORATORY Eos % 3.5 % [facility] Eosinophils Abs 0.3 0.0 - 0.4 x10(3)/[facility] LABORATORY Basophil % 0.5 % [facility] Baso Absolute 0.0 0.0 - 0.1 x10(3)/[facility] LABORATORY Immature Gran % 0.40 % [facility] Comment: Immature granulocytes(IG's)percentage and absolute count will include metamyelocytes, myelocytes, and promyelocytes. Blood smears from CBCs yielding IG's will be scanned manually for concordance. If this scan disagrees with the automated IG or if promyelocytes are noted, a manual differential will be performed. Immature Gran Absolute 0.03 0.00 - 0.04 x10(3)/[facility] LABORATORY Blood 06/29/2023 2:39 AM EDT 06/29/2023 3:33 AM EDT Narrative Resulting Agency Comment Spec In Lab Terrence Keating MD HEMATOLOGY ORDERABLE S [facility] [place] [address] * Hemogram (06/29/2023 2:39 AM EDT) White Blood Cell 8.3 4.0 - 9.5 x10(3)/[facility] LABORATORY Red Blood Cell 4.19 4.00 - 5.21 x10(6)/[facility] LABORATORY Hemoglobin 13.2 11.7 - 15.5 g/dL [facility] Hematocrit 38.9 35.7 - 45.8 % [facility] Mean Cell Volume 92.8 82.6 - 94.4 fL [facility] Mean Cell Hemoglobin 31.5 27.1 - 32.0 pg [facility] Mean Cell Hemoglobin Concentration 33.9 31.7 - 35.0 g/dL [facility] Platelet 237 145 - 357 x10(3)/[facility] LABORATORY RDW Standard Deviation 45.3 37.0 - 46.0 [facility] LABORATORY RDW coefficient of variation 13.3 11.5 - 14.1 % [facility] Mean Platelet Volume 11.4 7.6 - 12.9 [facility] LABORATORY NRBC% auto 0.0 % [facility] NRBC Absolute 0.000 0.000 - 0.000 x10(3)/[facility] LABORATORY Blood 06/29/2023 2:39 AM EDT 06/29/2023 3:33 AM EDT Narrative Resulting Agency Comment Spec In Lab Terrence Keating MD HEMATOLOGY ORDERABLE S Performing Organization Address [facility]/[place] Co de Phone Number [facility] [place] [address] * (ABNORMAL) Heparin (unfractionated) Level (06/29/2023 2:39 AM EDT) UF Heparin 1.77(Crit ical) IU/mL [facility] Comment: Specimen drawn more than one hour prior to testing. Results may not be reliable for heparin monitoring. Result may be falsely low. Critical Result called by ?? [facility] CRITICAL Results read back by: ? Guilherme [...] MD HEMATOLOGY ORDERABLE S Performing Organization Address [facility]/ZIP Co de Phone Number [facility] [place] [address] * (ABNORMAL) Basic Metabolic Panel (non-fasting) (06/29/2023 2:39 AM EDT) Glucose 100 65 - 199 mg/dL [facility] Comment:Diabetes: >=200 mg/d L plus symptoms Blood Urea Nitrogen 21(H) 8 - 18 mg/dL [facility] Creatinine 1.17 0.70 - 1.20 mg/dL [facility] Sodium 138 135 - 145 mmol/L [facility] Potassium 3.9 3.5 - 5.0 mmol/L [facility] Comment: Please note: ??Patients with WBC >100,000 may have falsely elevated Potassium levels. ??For accurate Potassium quantification in these patients send serum separator tube (gold top) for subsequent determinations. ??Contact the Clinical Chemistry Laboratory if there are any questions. Chloride 105 98 - 107 mmol/L [facility] Carbon Dioxide 22 22 - 31 mmol/L [facility] Anion Gap 11 5 - 15 mmol/L [facility] Calcium 9.1 8.5 - 10.5 mg/dL [facility] Est Glomerular Filtration Rate 55(L) >=60 mL/min/1. 73 m?? [facility] [...] Lab Eufemia Copeland MD CHEMISTRY ORDERABL ES [facility] [place] [address] * Phosphorus (06/29/2023 2:39 AM EDT) Phosphorus 4.0 2.5 - 4.5 mg/dL [facility] Blood 06/29/2023 2:39 AM EDT 06/29/2023 3:33 AM EDT Narrative Resulting Agency Comment Spec In Lab Eufemia Copeland MD CHEMISTRY ORDERABL ES [facility] [place] [address] * Magnesium (06/29/2023 2:39 AM EDT) Magnesium 0.92 0.69 - 1.07 mmol/L [facility] Blood 06/29/2023 2:39 AM EDT 06/29/2023 3:33 AM EDT Narrative Resulting Agency Comment Spec In Lab Eufemia Copeland MD CHEMISTRY ORDERABL ES Performing Organization Address [facility]/[place] Co de Phone Number [facility] [place] [address] * US Abdomen Limited (06/28/2023 12:22 PM EDT) WORKSTATION ID [id number] [facility] Anatomical Region Laterality Modality Abdomen [...] signed by: Sigrid Owens MD, [facility] ([phone]), at 06/28/2023 2:02 PM Thank you for letting us participate in the care of this patient. If you are a health care provider and have any questions regarding this report, please contact the number above. For patients who have questions, please contact the health cna caregiver that requested your imaging first. ?Sigrid Owens, [facility] Community Case Manager Electronically Signed Final Report ?? 06/28/2023 02:08 pm Narrative 06/28/2023 2:08 PM EDT Abdominal ? (Signed Final 06/28/2023 02:08 pm) PATIENT INFO: ID #: ? [id number] ?: ??[birth year] (53 yrs)(F) Name: ? LOIDA ?Visit Date: 06/28/2023 12:20 pm ? ROHAN PERFORMED BY: Attending: ?Graciela JOHN, Sigrid Munoz Resident: ? Karo JOHN, Rafaela Performed By: ? Rick [facility], ??Deena Referred By: ?AILYN IRVIN Location: ? [place] SERVICE(S) PROVIDED: UABDLIM - Abdominal Limited Survey Single ? [id number] Organ or Quadrant - [id number] INDICATIONS: RUQ pain, R/o Gall bladder colic, [...] 06/28/2023 02:08 pm) PATIENT INFO: ID #: [id number] : [birth year] (53 yrs)(F) Name: LOIDA Visit Date: 06/28/2023 12:20 pm ROHAN PERFORMED BY: Attending: Sigrid Owens MD Resident: Rafaela Huddleston MD Performed By: Deena Cabrera RDMS Referred By: AILYN IRVIN Location: [place] SERVICE(S) PROVIDED: UABDLIM - Abdominal Limited Survey Single 20510 Organ or Quadrant - [id number] INDICATIONS: RUQ pain, R/o Gall bladder colic, [...] signed by: Sigrid Owens MD, [facility] ([phone]), at 06/28/2023 2:02 PM Thank you for letting us participate in the care of this patient. If you are a health care provider and have any questions regarding this report, please contact the number above. For patients who have questions, please contact the health cna caregiver that requested your imaging first. Sigrid Owens, E Community Case Manager Electronically Signed Final Report 06/28/2023 02:08 pm Ailyn ESPINOZA US GEN ORDERABLE S * Duplex Study Visceral Arteries, Comp (06/28/2023 10:19 AM EDT) VB Text Report Department: Vascular Surgery Lab Patient: [id number] (LOIDA ROQUE) CPT: 71680 Referring Physician: HEIDY SULLIVAN ?? Indications: abdominal pain, ? patency/stenosi s Findings: Unilateral ? Waveform ? PSV cm/s ??EDV cm/s ??Patent ?? Dary Visceral Aorta ? 80 ?16 ? Celiac Artery, Proximal ??Chase-Biphasic ? 119 ?26 ? Celiac Artery, Mid ? Chase-Biphasic ? 115 ?21 ? Celiac Artery, Distal ? No Vis ?? Sup Mes Artery Proximal ??Biphasic ?427 ?91 ? Sup Mes Artery Middle ?Chase-Biphasic ? 100 ?17 ? Sup Mes Artery Distal ?Chase-Biphasic ?64 ?15 ? Hepatic Artery ?No Vis [...] 1:52 AM EDT) Neutrophil % 55.3 % [facility] Neutrophil Absolute 4.46 1.70 - 6.10 x10(3)/[facility] LABORATORY Lymph % 30.6 % [facility] Lymphocytes Abs 2.5 0.9 - 3.2 x10(3)/[facility] LABORATORY Monocyte % 8.8 % [facility] Monocyte Abs 0.7 0.3 - 0.9 x10(3)/[facility] LABORATORY Eos % 4.6 % [facility] Eosinophils Abs 0.4 0.0 - 0.4 x10(3)/[facility] LABORATORY Basophil % 0.5 % [facility] Baso Absolute 0.0 0.0 - 0.1 x10(3)/[facility] LABORATORY Immature Gran % 0.20 % [facility] Comment: Immature granulocytes(IG's)percentage and absolute count will include metamyelocytes, myelocytes, and promyelocytes. Blood smears from CBCs yielding IG's will be scanned manually for concordance. If this scan disagrees with the automated IG or if promyelocytes are noted, a manual differential will be performed. Immature Gran Absolute 0.02 0.00 - 0.04 x10(3)/[facility] LABORATORY Blood 06/28/2023 1:52 AM EDT 06/28/2023 2:05 AM EDT Narrative Resulting Agency Comment Spec In Lab Terrence Keating MD HEMATOLOGY ORDERABLE S [facility] [place] [address] * Hemogram (06/28/2023 1:52 AM EDT) White Blood Cell 8.1 4.0 - 9.5 x10(3)/[facility] LABORATORY Red Blood Cell 4.30 4.00 - 5.21 x10(6)/[facility] LABORATORY Hemoglobin 13.4 11.7 - 15.5 g/dL [facility] Hematocrit 40.6 35.7 - 45.8 % [facility] Mean Cell Volume 94.4 82.6 - 94.4 fL [facility] Mean Cell Hemoglobin 31.2 27.1 - 32.0 pg [facility] Mean Cell Hemoglobin Concentration 33.0 31.7 - 35.0 g/dL [facility] Platelet 238 145 - 357 x10(3)/[facility] LABORATORY RDW Standard Deviation 45.7 37.0 - 46.0 fL [facility] RDW coefficient of variation 13.2 11.5 - 14.1 % [facility] Mean Platelet Volume 10.8 7.6 - 12.9 fL [facility] NRBC% auto 0.0 % [facility] NRBC Absolute 0.000 0.000 - 0.000 x10(3)/mcL [facility] Blood 06/28/2023 1:52 AM EDT 06/28/2023 2:05 AM EDT Narrative Resulting Agency Comment Spec In Lab Terrence Keating MD HEMATOLOGY ORDERABLE S [facility] [place] [address] * (ABNORMAL) Basic Metabolic Panel (non-fasting) (06/28/2023 1:52 AM EDT) Glucose 101 65 - 199 mg/dL [facility] Comment:Diabetes: >=200 mg/d L plus symptoms Blood Urea Nitrogen 24(H) 8 - 18 mg/dL [facility] Creatinine 1.21(H) 0.70 - 1.20 mg/dL [facility] [...] - 107 mmol/L [facility] Carbon Dioxide 21(L) 22 - 31 mmol/L [facility] Anion Gap 12 5 - 15 mmol/L [facility] Calcium 9.0 8.5 - 10.5 mg/dL [facility] Est Glomerular Filtration Rate 53(L) >=60 mL/min/1. 73 m?? [facility] [...] MD CHEMISTRY ORDERABL ES Performing Organization Address [facility]/[place] Co de Phone Number [facility] [place] [address] * Phosphorus (06/28/2023 1:52 AM EDT) Phosphorus 4.5 2.5 - 4.5 mg/dL [facility] Blood 06/28/2023 1:52 AM EDT 06/28/2023 2:05 AM EDT Narrative Resulting Agency Comment Spec In Lab Eufemia Copeland MD CHEMISTRY ORDERABL ES Performing Organization Address [facility]/[place] Co de Phone Number [facility] [place] [address] * Magnesium (06/28/2023 1:52 AM EDT) Magnesium 0.93 0.69 - 1.07 mmol/L [facility] Blood 06/28/2023 1:52 AM EDT 06/28/2023 2:05 AM EDT Narrative Resulting Agency Comment Spec In Lab Eufemia Copeland MD CHEMISTRY ORDERABL ES Performing Organization Address [facility]/ZIP Co de Phone Number [facility] [place] [address] * (ABNORMAL) Basic Metabolic Panel (non-fasting) (06/27/2023 8:06 PM EDT) Glucose 94 65 - 199 mg/dL [facility] Comment:Diabetes: >=200 mg/d L plus symptoms Blood Urea Nitrogen 24(H) 8 - 18 mg/dL [facility] Creatinine 1.28(H) 0.70 - 1.20 mg/dL [facility] Sodium 141 135 - 145 mmol/L [facility] Potassium 4.3 3.5 - 5.0 mmol/L [facility] Comment: Please note: ??Patients with WBC >100,000 may have falsely elevated Potassium levels. ??For accurate Potassium quantification in these patients send serum separator tube (gold top) for subsequent determinations. ??Contact the Clinical Chemistry Laboratory if there are any questions. Chloride 106 98 - 107 mmol/L [facility] Carbon Dioxide 24 22 - 31 mmol/L [facility] Anion Gap 11 5 - 15 mmol/L [facility] Calcium 9.3 8.5 - 10.5 mg/dL [facility] Est Glomerular Filtration Rate 50(L) >=60 mL/min/1. 73 m?? [facility] [...] Irvin MD CHEMISTRY ORDERABLES Performing Organization Address City/[facility]/ZIP Co de Phone Number [facility] [place] [address] * (ABNORMAL) Hepatic Function Panel (06/27/2023 4:34 AM EDT) [facility] Protein, Total 6.4 6.1 - 8.0 g/dL [facility] Albumin 3.8 3.2 - 5.2 g/dL [facility] Aspartate Aminotransferase 21 0 - 30 unit/L [facility] Alanine Aminotransferase 22 0 - 30 unit/L [facility] Alkaline Phosphatase 56 35 - 105 unit/L [facility] Bilirubin, Total <0.2(L) 0.2 - 1.3 mg/dL [facility] Bilirubin, Direct <0.1 0.0 - 0.3 mg/dL [facility] Blood Venous Draw / Unknown 06/27/2023 4:34 AM EDT 06/27/2023 4:53 AM EDT Narrative Resulting Agency Comment Spec In Lab Ailyn Irvin MD CHEMISTRY ORDERABLES Performing Organization Address City/[facility]/ZIP Co de Phone Number [facility] [place] [address] * Differential, Automated (06/27/2023 4:34 AM EDT) [facility] Neutrophil % 52.7 % [facility] Neutrophil Absolute 4.01 1.70 - 6.10 x10(3)/[facility] LABORATORY Lymph % 33.8 % [facility] Lymphocytes Abs 2.6 0.9 - 3.2 x10(3)/[facility] LABORATORY Monocyte % 8.8 % [facility] Monocyte Abs 0.7 0.3 - 0.9 x10(3)/[facility] LABORATORY Eos % 3.8 % [facility] Eosinophils Abs 0.3 0.0 - 0.4 x10(3)/[facility] LABORATORY Basophil % 0.5 % [facility] Baso Absolute 0.0 0.0 - 0.1 x10(3)/[facility] LABORATORY Immature Gran % 0.40 % [facility] Comment: Immature granulocytes(IG's)percentage and absolute count will include metamyelocytes, myelocytes, and promyelocytes. Blood smears from CBCs yielding IG's will be scanned manually for concordance. If this scan disagrees with the automated IG or if promyelocytes are noted, a manual differential will be performed. Immature Gran Absolute 0.03 0.00 - 0.04 x10(3)/[facility] LABORATORY Blood 06/27/2023 4:34 AM EDT 06/27/2023 4:51 AM EDT Narrative Resulting Agency Comment Spec In Lab Terrence Keating MD HEMATOLOGY ORDERABLE S Performing Organization Address City/State/[place] Co de Phone Number [facility] [place] [address] * Hemogram (06/27/2023 4:34 AM EDT) White Blood Cell 7.6 4.0 - 9.5 x10(3)/[facility] LABORATORY Red Blood Cell 4.15 4.00 - 5.21 x10(6)/[facility] LABORATORY Hemoglobin 12.9 11.7 - 15.5 g/dL [facility] Hematocrit 39.0 35.7 - 45.8 % [facility] Mean Cell Volume 94.0 82.6 - 94.4 fL [facility] Mean Cell Hemoglobin 31.1 27.1 - 32.0 pg [facility] Mean Cell Hemoglobin Concentration 33.1 31.7 - 35.0 g/dL [facility] Platelet 245 145 - 357 x10(3)/[facility] LABORATORY RDW Standard Deviation 45.2 37.0 - 46.0 fL [facility] RDW coefficient of variation 13.2 11.5 - 14.1 % [facility] Mean Platelet Volume 11.2 7.6 - 12.9 fL [facility] NRBC% auto 0.0 % [facility] NRBC Absolute 0.000 0.000 - 0.000 x10(3)/mcL [facility] Blood 06/27/2023 4:34 AM EDT 06/27/2023 4:51 AM EDT Narrative Resulting Agency Comment Spec In Lab Terrence Keating MD HEMATOLOGY ORDERABLE S [facility] [place] [address] * (ABNORMAL) Basic Metabolic Panel (non-fasting) (06/27/2023 4:34 AM EDT) Glucose 99 65 - 199 mg/dL [facility] Comment:Diabetes: >=200 mg/d L plus symptoms Blood Urea Nitrogen 26(H) 8 - 18 mg/dL [facility] Creatinine 1.22(H) 0.70 - 1.20 mg/dL [facility] Sodium 138 135 - 145 mmol/L [facility] Potassium 3.9 3.5 - 5.0 mmol/L [facility] Comment: Please note: ??Patients with WBC >100,000 may have falsely elevated Potassium levels. ??For accurate Potassium quantification in these patients send serum separator tube (gold top) for subsequent determinations. ??Contact the Clinical Chemistry Laboratory if there are any questions. Chloride 105 98 - 107 mmol/L [facility] Carbon Dioxide 22 22 - 31 mmol/L [facility] Anion Gap 11 5 - 15 mmol/L [facility] Calcium 9.1 8.5 - 10.5 mg/dL [facility] Est Glomerular Filtration Rate 53(L) >=60 mL/min/1. 73 m?? [facility] [...] MD CHEMISTRY ORDERABL ES Performing Organization Address [facility] Co de Phone Number [facility] [place] [address] * (ABNORMAL) Phosphorus (06/27/2023 4:34 AM EDT) Phosphorus 4.7(H) 2.5 - 4.5 mg/dL [facility] Blood 06/27/2023 4:34 AM EDT 06/27/2023 4:51 AM EDT Narrative Resulting Agency Comment Spec In Lab Eufemia Copeland MD CHEMISTRY ORDERABL ES Performing Organization Address [facility] Co de Phone Number [facility] [place] [address] * Magnesium (06/27/2023 4:34 AM EDT) Magnesium 0.90 0.69 - 1.07 mmol/L [facility] Blood 06/27/2023 4:34 AM EDT 06/27/2023 4:51 AM EDT Narrative Resulting Agency Comment Spec In Lab Eufemia Copeland MD CHEMISTRY ORDERABL ES Performing Organization Address [facility] Co de Phone Number [facility] [place] [address] * (ABNORMAL) Basic Metabolic Panel (non-fasting) (06/26/2023 4:58 PM EDT) Glucose 106 65 - 199 mg/dL [facility] Comment:Diabetes: >=200 mg/d L plus symptoms Blood Urea Nitrogen 24(H) 8 - 18 mg/dL [facility] Creatinine 1.23(H) 0.70 - 1.20 mg/dL [facility] [...] questions. Chloride 104 98 - 107 mmol/L [facility] Carbon Dioxide 21(L) 22 - 31 mmol/L [facility] Anion Gap 13 5 - 15 mmol/L [facility] Calcium 9.1 8.5 - 10.5 mg/dL [facility] Est Glomerular Filtration Rate 52(L) >=60 mL/min/1. 73 m?? [facility] [...] Irvin MD CHEMISTRY ORDERABLES Performing Organization Address City/[facility]/ZIP Co de Phone Number [facility] [place] [address] * Urinalysis Microscopic Exam (06/26/2023 11:09 AM EDT) RBC, Urine 0 0 - 4 /HPF [facility] WBC, Urine 3 0 - 5 /HPF [facility] Squamous Epithelial Cells Raw Data, Urine 1 <=4 /HPF [facility] Hyaline Casts, Urine 1 0 - 2 /LPF [facility] Clean Catch Urine 06/26/2023 11:09 AM EDT 06/26/2023 5:45 PM EDT Narrative Resulting Agency Comment Spec In Lab Ailyn Irvin MD URINE ORDERABLES Performing Organization Address [facility] Co de Phone Number [facility] [place] [address] * (ABNORMAL) Urinalysis with reflex Culture (06/26/2023 11:09 AM EDT) Glucose, Urine Dipstick Negative Negative mg/dL [facility] Protein, Urine Dipstick Negative Negative mg/dL [facility] Bilirubin, Urine Dipstick Negative Negative mg/dL [facility] Comment: Clinical correlation required for positive Urine Bilirubin results as false positive may occur with some drugs and drug related products. If a false positive is suspected a serum total bilirubin should be considered if clinically indicated. Urobilinogen, Urine Dipstick Normal Normal mg/dL [facility] pH, Urn (dipstick) 6.0 5.0 - 8.0 [facility] Blood, Urine Dipstick Negative Negative mg/dL [facility] Ketone, Urine Dipstick Negative Negative mg/dL [facility] Nitrite, Urine Dipstick Negative Negative [facility] Leukocytes, Urine Dipstick Trace(A) Negative [facility] Appearance, Urine Dipstick Clear Clear [facility] Specific [place] Urine Automated 1.013 1.005 - 1.030 [facility] Color, Urine Dipstick Yellow Yellow [facility] Reflex to Culture No [facility] Clean Catch Urine 06/26/2023 11:09 AM EDT 06/26/2023 5:45 PM EDT Narrative Resulting Agency Comment Spec In Lab Ailyn Irvin MD URINE ORDERABLES [facility] [place] [address] * EKG 12 Lead (06/26/2023 6:04 AM EDT) Ventricular rate 46 BPM MUSE SYSTEM Atrial Rate 46 BPM MUSE SYSTEM P-R Interval 204 ms MUSE SYSTEM QRS Duration 90 ms MUSE SYSTEM Q-T Interval 466 ms MUSE SYSTEM QTC Calculated (Bezet) 407 ms MUSE SYSTEM Calculated P [place] 38 degrees MUSE SYSTEM Calculated R [place] 48 degrees MUSE SYSTEM Calculated T [place] 13 degrees MUSE SYSTEM INTERPRETATION Sinus bradycardia Nonspecific ST and T wave abnormality Abnormal ECG When compared with ECG of 23-JUN-2023 09:54, No significant change was found Confirmed by MD Dalia, Willy Huerta ([id number]) on 06/29/2023 6:09:20 AM MUSE SYSTEM 06/26/2023 6:04 AM EDT 06/29/2023 6:09 AM EDT Eufemia Copeland MD ECG ORDERABLES MUSE SYSTEM * Differential, Automated (06/26/2023 4:06 AM EDT) Neutrophil % 55.3 % [facility] Neutrophil Absolute 4.63 1.70 - 6.10 x10(3)/[facility] Lymph % 32.6 % [facility] Lymphocytes Abs 2.7 0.9 - 3.2 x10(3)/[facility] Monocyte % 8.2 % [facility] Monocyte Abs 0.7 0.3 - 0.9 x10(3)/[facility] Eos % 3.2 % [facility] Eosinophils Abs 0.3 0.0 - 0.4 x10(3)/[facility] Basophil % 0.5 % [facility] Baso Absolute 0.0 0.0 - 0.1 x10(3)/[facility] Immature Gran % 0.20 % [facility] Comment: Immature granulocytes(IG's)percentage and absolute count will include metamyelocytes, myelocytes, and promyelocytes. Blood smears from CBCs yielding IG's will be scanned manually for concordance. If this scan disagrees with the automated IG or if promyelocytes are noted, a manual differential will be performed. Immature Gran Absolute 0.02 0.00 - 0.04 x10(3)/[facility] Blood 06/26/2023 4:06 AM EDT 06/26/2023 4:18 AM EDT Narrative Resulting Agency Comment Spec In Lab Terrence Keating MD HEMATOLOGY ORDERABLE S [facility] [place] [address] * (ABNORMAL) Hemogram (06/26/2023 4:06 AM EDT) White Blood Cell 8.4 4.0 - 9.5 x10(3)/ L [facility] Red Blood Cell 4.52 4.00 - 5.21 x10(6)/ L [facility] Hemoglobin 14.0 11.7 - 15.5 g/dL [facility] Hematocrit 43.6 35.7 - 45.8 % [facility] Mean Cell Volume 96.5(H) 82.6 - 94.4 fL [facility] Mean Cell Hemoglobin 31.0 27.1 - 32.0 pg [facility] Mean Cell Hemoglobin Concentration 32.1 31.7 - 35.0 g/dL [facility] Platelet 258 145 - 357 x10(3)/mc L [facility] RDW Standard Deviation 46.7(H) 37.0 - 46.0 fL [facility] RDW coefficient of variation 13.2 11.5 - 14.1 % [facility] Mean Platelet Volume 11.1 7.6 - 12.9 fL [facility] NRBC% auto 0.0 % [facility] NRBC Absolute 0.000 0.000 - 0.000 x10(3)/mc L [facility] Blood 06/26/2023 4:06 AM EDT 06/26/2023 4:18 AM EDT Narrative Resulting Agency Comment Spec In Lab Terrence Keating MD HEMATOLOGY ORDERABLE S [facility] [place] [address] * (ABNORMAL) Basic Metabolic Panel (non-fasting) (06/26/2023 4:06 AM EDT) Glucose 100 65 - 199 mg/dL [facility] Comment:Diabetes: >=200 mg/d L plus symptoms Blood Urea Nitrogen 25(H) 8 - 18 mg/dL [facility] Creatinine 1.24(H) 0.70 - 1.20 mg/dL [facility] Sodium 135 135 - 145 mmol/L [facility] Potassium 4.2 3.5 - 5.0 mmol/L [facility] Comment: Please note: ??Patients with WBC >100,000 may have falsely elevated Potassium levels. ??For accurate Potassium quantification in these patients send serum separator tube (gold top) for subsequent determinations. ??Contact the Clinical Chemistry Laboratory if there are any questions. Chloride 104 98 - 107 mmol/L [facility] Carbon Dioxide 19(L) 22 - 31 mmol/L [facility] Anion Gap 12 5 - 15 mmol/L [facility] Calcium 9.6 8.5 - 10.5 mg/dL [facility] Est Glomerular Filtration Rate 52(L) >=60 mL/min/1. 73 m?? [facility] MD CHEMISTRY ORDERABL ES Performing Organization Address City/[facility]/ZIP Co de Phone Number [facility] [place] [address] * Phosphorus (06/26/2023 4:06 AM EDT) Phosphorus 4.3 2.5 - 4.5 mg/dL [facility] Blood 06/26/2023 4:06 AM EDT 06/26/2023 4:18 AM EDT Narrative Resulting Agency Comment Spec In Lab Eufemia Copeland MD CHEMISTRY ORDERABL ES [facility] [place] [address] * Magnesium (06/26/2023 4:06 AM EDT) Magnesium 0.96 0.69 - 1.07 mmol/L [facility] Blood 06/26/2023 4:06 AM EDT 06/26/2023 4:18 AM EDT Narrative Resulting Agency Comment Spec In Lab Eufemia Copeland MD CHEMISTRY ORDERABL ES Performing Organization Address City/[facility]/ZIP Co de Phone Number [facility] [place] [address] * Differential, Automated (06/25/2023 1:50 AM EDT) Neutrophil % 56.2 % [facility] Neutrophil Absolute 4.06 1.70 - 6.10 x10(3)/[facility] LABORATORY Lymph % 30.5 % [facility] Lymphocytes Abs 2.2 0.9 - 3.2 x10(3)/[facility] Monocyte % 8.7 % [facility] Monocyte Abs 0.6 0.3 - 0.9 x10(3)/[facility] Eos % 3.9 % [facility] Eosinophils Abs 0.3 0.0 - 0.4 x10(3)/[facility] Basophil % 0.6 % [facility] Baso Absolute 0.0 0.0 - 0.1 x10(3)/[facility] Immature Gran % 0.10 % [facility] Comment: Immature granulocytes(IG's)percentage and absolute count will include metamyelocytes, myelocytes, and promyelocytes. Blood smears from CBCs yielding IG's will be scanned manually for concordance. If this scan disagrees with the automated IG or if promyelocytes are noted, a manual differential will be performed. Immature Gran Absolute 0.01 0.00 - 0.04 x10(3)/[facility] Blood 06/25/2023 1:50 AM EDT 06/25/2023 2:16 AM EDT Narrative Resulting Agency Comment Spec In Lab Terrence Keating MD HEMATOLOGY ORDERABLE S [facility] [place] [address] * Hemogram (06/25/2023 1:50 AM EDT) [facility] White Blood Cell 7.2 4.0 - 9.5 x10(3)/[facility] Red Blood Cell 4.57 4.00 - 5.21 x10(6)/[facility] Hemoglobin 14.4 11.7 - 15.5 g/dL [facility] Hematocrit 42.9 35.7 - 45.8 % [facility] Mean Cell Volume 93.9 82.6 - 94.4 fL [facility] Mean Cell Hemoglobin 31.5 27.1 - 32.0 pg [facility] Mean Cell Hemoglobin Concentration 33.6 31.7 - 35.0 g/dL [facility] Platelet 241 145 - 357 x10(3)/[facility] RDW Standard Deviation 44.7 37.0 - 46.0 [facility] LABORATORY RDW coefficient of variation 13.2 11.5 - 14.1 % [facility] Mean Platelet Volume 11.5 7.6 - 12.9 fL [facility] NRBC% auto 0.0 % [facility] NRBC Absolute 0.000 0.000 - 0.000 x10(3)/[facility] Blood 06/25/2023 1:50 AM EDT 06/25/2023 2:16 AM EDT Narrative Resulting Agency Comment Spec In Lab Terrence Keating MD HEMATOLOGY ORDERABLE S [facility] [place] [address] * (ABNORMAL) Basic Metabolic Panel (non-fasting) (06/25/2023 1:50 AM EDT) [facility] Glucose 99 65 - 199 mg/dL [facility] Comment:Diabetes: >=200 mg/d L plus symptoms Blood Urea Nitrogen 20(H) 8 - 18 mg/dL [facility] Creatinine 1.59(H) 0.70 - 1.20 mg/dL [facility] Sodium 139 135 - 145 mmol/L [facility] Potassium 3.4(L) 3.5 - 5.0 mmol/L [facility] Comment: Please note: ??Patients with WBC >100,000 may have falsely elevated Potassium levels. ??For accurate Potassium quantification in these patients send serum separator tube (gold top) for subsequent determinations. ??Contact the Clinical Chemistry Laboratory if there are any questions. Chloride 102 98 - 107 mmol/L [facility] Carbon Dioxide 25 22 - 31 mmol/L [facility] Anion Gap 12 5 - 15 mmol/L [facility] Calcium 9.4 8.5 - 10.5 mg/dL [facility] Est Glomerular Filtration Rate 38(L) >=60 mL/min/1. 73 m?? [facility] [...] Lab Eufemia Copeland MD CHEMISTRY ORDERABL ES [facility] [place] [address] * Phosphorus (06/25/2023 1:50 AM EDT) Phosphorus 4.4 2.5 - 4.5 mg/dL [facility] Blood 06/25/2023 1:50 AM EDT 06/25/2023 2:16 AM EDT Narrative Resulting Agency Comment Spec In Lab Eufemia Copeland MD CHEMISTRY ORDERABL ES Performing Organization Address City/[facility]/ZIP Co de Phone Number [facility] [place] [address] * Magnesium (06/25/2023 1:50 AM EDT) [facility] Magnesium 0.99 0.69 - 1.07 mmol/L [facility] Blood 06/25/2023 1:50 AM EDT 06/25/2023 2:16 AM EDT Narrative Resulting Agency Comment Spec In Lab Eufemia Copeland MD CHEMISTRY ORDERABL ES Performing Organization Address [facility] Co de Phone Number [facility] [place] [address] * (ABNORMAL) pro-Brain Natriuretic Peptide (06/24/2023 3:38 AM EDT) [facility] NT-proBNP 1,239(H) <=124 pg/mL [facility] Blood Venous Draw / Unknown 06/24/2023 3:38 AM EDT 06/24/2023 3:49 AM EDT Narrative Resulting Agency Comment Spec In Lab Ailyn Irvin MD CHEMISTRY ORDERABLES Performing Organization Address City/[facility]/ZIP Co de Phone Number [facility] [place] [address] * Differential, Automated (06/24/2023 3:38 AM EDT) [facility] Neutrophil % 51.6 % [facility] Neutrophil Absolute 3.54 1.70 - 6.10 x10(3)/mcL [facility] Lymph % 36.0 % [facility] Lymphocytes Abs 2.5 0.9 - 3.2 x10(3)/[facility] LAB[facility]ORY Monocyte % 7.8 % [facility] Monocyte Abs 0.5 0.3 - 0.9 x10(3)/[facility] Eos % 3.6 % [facility] Eosinophils Abs 0.2 0.0 - 0.4 x10(3)/[facility] Basophil % 0.7 % [facility] Baso Absolute 0.0 0.0 - 0.1 x10(3)/[facility] Immature Gran % 0.30 % [facility] Comment: Immature granulocytes(IG's)percentage and absolute count will include metamyelocytes, myelocytes, and promyelocytes. Blood smears from CBCs yielding IG's will be scanned manually for concordance. If this scan disagrees with the automated IG or if promyelocytes are noted, a manual differential will be performed. Immature Gran Absolute 0.02 0.00 - 0.04 x10(3)/[facility] Blood 06/24/2023 3:38 AM EDT 06/24/2023 3:49 AM EDT Narrative Resulting Agency Comment Spec In Lab Terrence Keating MD HEMATOLOGY ORDERABLE S [facility] [place] [address] * Hemogram (06/24/2023 3:38 AM EDT) White Blood Cell 6.9 4.0 - 9.5 x10(3)/[facility] Red Blood Cell 4.36 4.00 - 5.21 x10(6)/[facility] Hemoglobin 13.6 11.7 - 15.5 g/dL [facility] Hematocrit 40.7 35.7 - 45.8 % [facility] Mean Cell Volume 93.3 82.6 - 94.4 fL [facility] Mean Cell Hemoglobin 31.2 27.1 - 32.0 pg [facility] Mean Cell Hemoglobin Concentration 33.4 31.7 - 35.0 g/dL [facility] Platelet 220 145 - 357 x10(3)/[facility] LAB[facility]ORY RDW Standard Deviation 44.5 37.0 - 46.0 fL [facility] RDW coefficient of variation 13.0 11.5 - 14.1 % [facility] Mean Platelet Volume 10.8 7.6 - 12.9 fL [facility] NRBC% auto 0.0 % [facility] NRBC Absolute 0.000 0.000 - 0.000 x10(3)/[facility] Blood 06/24/2023 3:38 AM EDT 06/24/2023 3:49 AM EDT Narrative Resulting Agency Comment Spec In Lab Terrence Keating MD HEMATOLOGY ORDERABLE S [facility] [place] [address] * Heparin (unfractionated) Level (06/24/2023 3:38 AM EDT) UF Heparin 0.44 IU/mL [facility] Comment: [...] Lab Terrence Keating MD HEMATOLOGY ORDERABLE S [facility] [place] [address] * (ABNORMAL) Basic Metabolic Panel (non-fasting) (06/24/2023 3:38 AM EDT) Glucose 96 65 - 199 mg/dL [facility] Comment:Diabetes: >=200 mg/d L plus symptoms Blood Urea Nitrogen 20(H) 8 - 18 mg/dL [facility] [...] questions. Chloride 104 98 - 107 mmol/L [facility] Carbon Dioxide 21(L) 22 - 31 mmol/L [facility] Anion Gap 13 5 - 15 mmol/L [facility] Calcium 9.1 8.5 - 10.5 mg/dL [facility] Est Glomerular Filtration Rate 57(L) >=60 mL/min/1. 73 m?? [facility] MD CHEMISTRY ORDERABL ES Performing Organization Address [facility] Co de Phone Number [facility] [place] [address] * Phosphorus (06/24/2023 3:38 AM EDT) Phosphorus 4.1 2.5 - 4.5 mg/dL [facility] Blood 06/24/2023 3:38 AM EDT 06/24/2023 3:49 AM EDT Narrative Resulting Agency Comment Spec In Lab Eufemia Copeland MD CHEMISTRY ORDERABL ES Performing Organization Address [facility] de Phone Number [facility] [place] [address] * Magnesium (06/24/2023 3:38 AM EDT) Magnesium 0.96 0.69 - 1.07 mmol/L [facility] Blood 06/24/2023 3:38 AM EDT 06/24/2023 3:49 AM EDT Narrative Resulting Agency Comment Spec In Lab Eufemia Copeland MD CHEMISTRY ORDERABL ES Performing Organization Address [facility] de Phone Number [facility] [place] [address] * Heparin (unfractionated) Level (06/23/2023 9:24 PM EDT) UF Heparin 0.51 IU/mL [facility] Comment: [...] Lab Terrence Keating MD HEMATOLOGY ORDERABLE S [facility] [place] [address] * Duplex Study Visceral Arteries, Comp (06/23/2023 3:36 PM EDT) VB Text Report Department: Vascular Surgery Lab Patient: [id number] (LOIDA ROQUE) CPT: [id number] Referring Physician: AILYN IRVIN ?? Phone: Indications: [...] 3:01 PM EDT) UF Heparin 0.90 IU/mL [facility] Comment: [...] Lab Terrence Keating MD HEMATOLOGY ORDERABLE S [facility] [place] [address] * EKG 12 Lead (06/23/2023 9:54 AM EDT) Ventricular rate 48 BPM MUSE SYSTEM Atrial Rate 48 BPM MUSE SYSTEM P-R Interval 192 ms MUSE SYSTEM QRS Duration 92 ms MUSE SYSTEM Q-T Interval 462 ms MUSE SYSTEM QTC Calculated (Bezet) 412 ms MUSE SYSTEM Calculated P [place] 21 degrees MUSE SYSTEM Calculated R [place] 20 degrees MUSE SYSTEM Calculated T [place] 16 degrees MUSE SYSTEM INTERPRETATION Sinus bradycardia [...] 4:12 AM EDT) Neutrophil % 52.8 % [facility] Neutrophil Absolute 4.30 1.70 - 6.10 x10(3)/[facility] LABORAT[facility] Lymph % 33.9 % [facility] Lymphocytes Abs 2.8 0.9 - 3.2 x10(3)/[facility] Monocyte % 8.3 % [facility] Monocyte Abs 0.7 0.3 - 0.9 x10(3)/[facility] Eos % 3.9 % [facility] Eosinophils Abs 0.3 0.0 - 0.4 x10(3)/[facility] Basophil % 0.7 % [facility] Baso Absolute 0.1 0.0 - 0.1 x10(3)/[facility] LABOR[facility] Immature Gran % 0.40 % [facility] Comment: Immature granulocytes(IG's)percentage and absolute count will include metamyelocytes, myelocytes, and promyelocytes. Blood smears from CBCs yielding IG's will be scanned manually for concordance. If this scan disagrees with the automated IG or if promyelocytes are noted, a manual differential will be performed. Immature Gran Absolute 0.03 0.00 - 0.04 x10(3)/[facility] Blood 06/23/2023 4:12 AM EDT 06/23/2023 4:38 AM EDT Narrative Resulting Agency Comment Spec In Lab Terrence Keating MD HEMATOLOGY ORDERABLE S [facility] [place] [address] * Hemogram (06/23/2023 4:12 AM EDT) White Blood Cell 8.2 4.0 - 9.5 x10(3)/[facility] Red Blood Cell 4.59 4.00 - 5.21 x10(6)/[facility] Hemoglobin 14.3 11.7 - 15.5 g/dL [facility] Hematocrit 43.1 35.7 - 45.8 % [facility] Mean Cell Volume 93.9 82.6 - 94.4 fL [facility] Mean Cell Hemoglobin 31.2 27.1 - 32.0 pg [facility] Mean Cell Hemoglobin Concentration 33.2 31.7 - 35.0 g/dL [facility] Platelet 233 145 - 357 x10(3)/[facility] RDW Standard Deviation 44.2 37.0 - 46.0 fL [facility] RDW coefficient of variation 13.0 11.5 - 14.1 % [facility] Mean Platelet Volume 11.3 7.6 - 12.9 fL [facility] NRBC% auto 0.0 % [facility] NRBC Absolute 0.000 0.000 - 0.000 x10(3)/mcL [facility] Blood 06/23/2023 4:12 AM EDT 06/23/2023 4:38 AM EDT Narrative Resulting Agency Comment Spec In Lab Terrence Keating MD HEMATOLOGY ORDERABLE S Performing Organization Address [facility] Co de Phone Number [facility] [place] [address] * (ABNORMAL) Heparin (unfractionated) Level (06/23/2023 4:12 AM EDT) UF Heparin 1.95(Crit ical) IU/mL [facility] Comment: [...] MD HEMATOLOGY ORDERABLE S Performing Organization Address [facility]/ZIP Co de Phone Number [facility] [place] [address] * (ABNORMAL) Basic Metabolic Panel (non-fasting) (06/23/2023 4:12 AM EDT) Glucose 87 65 - 199 mg/dL [facility] Comment:Diabetes: >=200 mg/d L plus symptoms Blood Urea Nitrogen 23(H) 8 - 18 mg/dL [facility] Creatinine 1.08 0.70 - 1.20 mg/dL [facility] Sodium 137 135 - 145 mmol/L [facility] [...] - 107 mmol/L [facility] Carbon Dioxide 22 22 - 31 mmol/L [facility] Anion Gap 12 5 - 15 mmol/L [facility] Calcium 9.3 8.5 - 10.5 mg/dL [facility] Est Glomerular Filtration Rate 61 >=60 mL/min/1. 73 m?? [facility] [...] Lab Eufemia Copeland MD CHEMISTRY ORDERABL ES [facility] [place] [address] * Phosphorus (06/23/2023 4:12 AM EDT) Phosphorus 4.5 2.5 - 4.5 mg/dL [facility] Blood 06/23/2023 4:12 AM EDT 06/23/2023 4:38 AM EDT Narrative Resulting Agency Comment Spec In Lab Eufemia Copeland MD CHEMISTRY ORDERABL ES Performing Organization Address [facility]/ZIP Co de Phone Number [facility] [place] [address] * Magnesium (06/23/2023 4:12 AM EDT) Magnesium 1.03 0.69 - 1.07 mmol/L [facility] Blood 06/23/2023 4:12 AM EDT 06/23/2023 4:38 AM EDT Narrative Resulting Agency Comment Spec In Lab Eufemia Copeland MD CHEMISTRY ORDERABL ES Performing Organization Address [facility]/ZIP Co de Phone Number [facility] [place] [address] * ECHO LMTD W CONTRAST W LMTD SPEC DOPP COLOR DOPP (06/22/2023 4:25 PM EDT) Anatomical Region Laterality Modality Cardiac Other 06/22/2023 2:49 PM EDT Narrative 06/22/2023 4:42 PM EDT 1 [place] [address] ? Echocardiogram Report Name: LOIDA ROQUE ?Study Date: 06/22/2023 02:49 PM ?Patient Location: [facility] 046 A ??HR: 57 : 1970 ?Height: 162 cm ? Account: [id number] Age: 53 yrs ?Weight: 102 kg Gender: [...] slight decrease in LV systolic function. Procedure Complete-45172. Satisfactory quality. There is normal sinus rhythm. [...] Note Jose Gallegos MD - 06/22/2023 1 [place] [address] Echocardiogram Report Name: ROHAN, MELINDA Study Date: 06/22/2023 02:49 PM Patient Location: [address]:57 : 1970 Height: 162 cmAccount: [id number] Age: 53 yrs Weight: 102 kg Gender: [...] a slightdecrease in LV systolic function. Procedure Complete-45864. Satisfactory quality. There is normal sinus rhythm. [...] max sierra: 58.8 cm/sec MV A max iserra: 30.9 cm/sec MV E/A: 1.9 MV dec [...] EDT) Troponin-T, High Sensitivity 22(H) <=14 ng/L [facility] [...] can be found in the [facility] Test Catalog Troponin - [facility] Test Catalog Reference: Fourth Crawford Definition of Myocardial Infarction. Journal of the [employer] 2018;72:5487-0024 Blood 06/22/2023 2:38 PM EDT 06/22/2023 2:50 PM EDT Narrative Resulting Agency Comment Spec In Lab Ailyn Irvin MD CHEMISTRY ORDERABLES [facility] [place] [address] * Duplex for DVT, Arm, Unilat (06/22/2023 2:24 PM EDT) VB Text Report Department: Vascular Surgery Lab Patient: [id number] (LOIDA ROQUE) CPT: 47712 Referring Physician: AILYN IRVIN ?? Phone: Indications: [...] who have questions please contact the health cna caregiver that requested your imaging first. ? Electronically signed by: Itz Hayward MD, [facility] ??([phone]), at 06/22/2023 11:47 AM Narrative 06/22/2023 11:47 [...] patients who have questions please contactthe health cna caregiver that requested your imaging first. Electronically signed by: Itz Hayward MD, [facility]([phone]), at 06/22/2023 11:47 AM Ailyn Irvin MD IMG DX ORDERABLES * (ABNORMAL) Troponin (06/22/2023 11:24 AM EDT) [facility] Signature Troponin-T, High Sensitivity 22(H) <=14 ng/L [facility] [...] can be found in the [facility] Test Catalog Troponin - [facility] Test Catalog Reference: Fourth Crawford Definition of Myocardial Infarction. Journal of the [employer] 2018;72:8587-5069 Blood 06/22/2023 11:2 4 AM EDT 06/22/2023 11:44 AM EDT Narrative Resulting Agency Comment Spec In Lab Ailyn Irvin MD CHEMISTRY ORDERABLES Performing Organization Address [facility] Co de Phone Number [facility] [place] [address] * EKG 12 Lead (06/22/2023 11:13 AM EDT) Ventricular rate 63 BPM MUSE SYSTEM Atrial Rate 63 BPM MUSE SYSTEM P-R Interval 162 ms MUSE SYSTEM QRS Duration 86 ms MUSE SYSTEM Q-T Interval 382 ms MUSE SYSTEM QTC Calculated (Bezet) 390 ms MUSE SYSTEM Calculated P [place] 24 degrees MUSE SYSTEM Calculated R [place] 32 degrees MUSE SYSTEM Calculated T [place] -2 degrees MUSE SYSTEM INTERPRETATION Normal sinus rhythm Septal infarct (cited on or before 22-JUN-2023) Possible Lateral infarct , age undetermined ST & T wave abnormality, consider inferolateral ischemia Abnormal ECG When compared with ECG of 22-JUN-2023 10:55, No significant change was found Confirmed by MD Angelo Danette ([id number]) on 06/22/2023 3:56:31 PM MUSE SYSTEM 06/22/2023 11:1 3 AM EDT 06/22/2023 3:56 PM EDT Ailyn Irvin MD ECG ORDERABLES Performing Organization Address [facility] Co de Phone Number MUSE SYSTEM * EKG 12 Lead (06/22/2023 10:55 AM EDT) Ventricular rate 56 BPM MUSE SYSTEM Atrial Rate 56 BPM MUSE SYSTEM P-R Interval 168 ms MUSE SYSTEM QRS Duration 88 ms MUSE SYSTEM Q-T Interval 426 ms MUSE SYSTEM QTC Calculated (Bezet) 411 ms MUSE SYSTEM Calculated P [place] 22 degrees MUSE SYSTEM Calculated R [place] 20 degrees MUSE SYSTEM Calculated T [place] 10 degrees MUSE SYSTEM INTERPRETATION Sinus bradycardia Septal infarct , age undetermined ST & T wave abnormality, consider inferolateral ischemia Abnormal ECG When compared with ECG of 21-JUN-2023 10:06, Septal infarct is now Present Confirmed by MD Angelo Danette ([id number]) on 06/22/2023 3:55:53 PM MUSE SYSTEM 06/22/2023 10:5 5 AM EDT 06/22/2023 3:55 PM EDT Ailyn Irvin MD ECG ORDERABLES MUSE SYSTEM * Differential, Automated (06/22/2023 4:34 AM EDT) Neutrophil % 54.4 % [facility] Neutrophil Absolute 4.07 1.70 - 6.10 x10(3)/[facility] Lymph % 30.6 % [facility] Lymphocytes Abs 2.3 0.9 - 3.2 x10(3)/[facility] Monocyte % 9.9 % [facility] Monocyte Abs 0.7 0.3 - 0.9 x10(3)/[facility] Eos % 4.3 % [facility] Eosinophils Abs 0.3 0.0 - 0.4 x10(3)/[facility] Basophil % 0.7 % [facility] Baso Absolute 0.0 0.0 - 0.1 x10(3)/[facility] Immature Gran % 0.10 % [facility] Comment: Immature granulocytes(IG's)percentage and absolute count will include metamyelocytes, myelocytes, and promyelocytes. Blood smears from CBCs yielding IG's will be scanned manually for concordance. If this scan disagrees with the automated IG or if promyelocytes are noted, a manual differential will be performed. Immature Gran Absolute 0.01 0.00 - 0.04 x10(3)/mcL [facility] Blood 06/22/2023 4:34 AM EDT 06/22/2023 4:42 AM EDT Narrative Resulting Agency Comment Spec In Lab Terrence Keating MD HEMATOLOGY ORDERABLE S [facility] [place] [address] * (ABNORMAL) Hemogram (06/22/2023 4:34 AM EDT) White Blood Cell 7.5 4.0 - 9.5 x10(3)/mc L [facility] Red Blood Cell 4.04 4.00 - 5.21 x10(6)/[facility] LABORATORY Hemoglobin 12.8 11.7 - 15.5 g/dL [facility] Hematocrit 39.1 35.7 - 45.8 % [facility] Mean Cell Volume 96.8(H) 82.6 - 94.4 fL [facility] Mean Cell Hemoglobin 31.7 27.1 - 32.0 pg [facility] Mean Cell Hemoglobin Concentration 32.7 31.7 - 35.0 g/dL [facility] Platelet 225 145 - 357 x10(3)/[facility] LABORATORY RDW Standard Deviation 45.9 37.0 - 46.0 [facility] LABORATORY RDW coefficient of variation 13.0 11.5 - 14.1 % [facility] Mean Platelet Volume 10.6 7.6 - 12.9 [facility] LAB[facility]ATORY NRBC% auto 0.0 % [facility] NRBC Absolute 0.000 0.000 - 0.000 x10(3)/ L [facility] Blood 06/22/2023 4:34 AM EDT 06/22/2023 4:42 AM EDT Narrative Resulting Agency Comment Spec In Lab Terrence Keating MD HEMATOLOGY ORDERABLE S [facility] [place] [address] * (ABNORMAL) Basic Metabolic Panel (non-fasting) (06/22/2023 4:34 AM EDT) Glucose 94 65 - 199 mg/dL [facility] Comment:Diabetes: >=200 mg/d L plus symptoms Blood Urea Nitrogen 22(H) 8 - 18 mg/dL [facility] Creatinine 1.19 0.70 - 1.20 mg/dL [facility] Sodium 138 135 - 145 mmol/L [facility] Potassium 3.9 3.5 - 5.0 mmol/L [facility] Comment: Please note: ??Patients with WBC >100,000 may have falsely elevated Potassium levels. ??For accurate Potassium quantification in these patients send serum separator tube (gold top) for subsequent determinations. ??Contact the Clinical Chemistry Laboratory if there are any questions. Chloride 102 98 - 107 mmol/L [facility] Carbon Dioxide 19(L) 22 - 31 mmol/L [facility] Anion Gap 17(H) 5 - 15 mmol/L [facility] Calcium 9.4 8.5 - 10.5 mg/dL [facility] Est Glomerular Filtration Rate 54(L) >=60 mL/min/1. 73 m?? [facility] [...] MD CHEMISTRY ORDERABL ES Performing Organization Address [facility]/[place] Co de Phone Number [facility] [place] [address] * (ABNORMAL) Phosphorus (06/22/2023 4:34 AM EDT) Phosphorus 4.9(H) 2.5 - 4.5 mg/dL [facility] Blood 06/22/2023 4:34 AM EDT 06/22/2023 4:42 AM EDT Narrative Resulting Agency Comment Spec In Lab Eufemia Copeland MD CHEMISTRY ORDERABL ES Performing Organization Address [facility] de Phone Number [facility] [place] [address] * Magnesium (06/22/2023 4:34 AM EDT) Magnesium 1.02 0.69 - 1.07 mmol/L [facility] Blood 06/22/2023 4:34 AM EDT 06/22/2023 4:42 AM EDT Narrative Resulting Agency Comment Spec In Lab Eufemia Copeland MD CHEMISTRY ORDERABL ES Performing Organization Address [facility] de Phone Number [facility] [place] [address] * CT Abdomen & Pelvis w Contrast [...] who have questions please contact the health cna caregiver that requested your imaging first. ? Electronically signed by: RONDA DUFFY MD, [facility] ([phone]), at 06/22/2023 7:59 AM Narrative 06/22/2023 7:59 [...] patients who have questions please contactthe health cna caregiver that requested your imaging first. Electronically signed by: RONDA DUFFY MD, [facility]([phone]), at 06/22/2023 7:59 AM Eufemia Copeland MD IMG CT ORDERABLES * EKG 12 Lead (06/21/2023 10:06 AM EDT) Ventricular rate 51 BPM MUSE SYSTEM Atrial Rate 51 BPM MUSE SYSTEM P-R Interval 176 ms MUSE SYSTEM QRS Duration 92 ms MUSE SYSTEM Q-T Interval 450 ms MUSE SYSTEM QTC Calculated (Bezet) 414 ms MUSE SYSTEM Calculated P [place] 17 degrees MUSE SYSTEM Calculated R [place] 35 degrees MUSE SYSTEM Calculated T [place] 13 degrees MUSE SYSTEM INTERPRETATION Sinus bradycardia [...] EDT) Troponin-T, High Sensitivity 22(H) <=14 ng/L [facility] [...] can be found in the [facility] Test Catalog Troponin - [facility] Test Catalog Reference: Fourth Crawford Definition of Myocardial Infarction. Journal of the [place] [employer] 2018;72:4323-5737 Blood 06/21/2023 9:45 AM EDT 06/21/2023 10:08 AM EDT Narrative Resulting Agency Comment Spec In Lab Eufemia Copeland MD CHEMISTRY ORDERABL ES Performing Organization Address [facility]/[place] Co de Phone Number [facility] [place] [address] * (ABNORMAL) pro-Brain Natriuretic Peptide (06/21/2023 5:58 AM EDT) NT-proBNP 1,370(H) <=124 pg/mL [facility] Blood Venous Draw / Unknown 06/21/2023 5:58 AM EDT 06/21/2023 7:28 AM EDT Narrative Resulting Agency Comment Spec In Lab Eufemia Copeland MD CHEMISTRY ORDERABL ES Performing Organization Address [facility] Co de Phone Number [facility] [place] [address] * Potassium (06/21/2023 5:58 AM EDT) Pathologist [facility] Potassium 4.0 3.5 - 5.0 mmol/L [facility] [...] MD CHEMISTRY ORDERABL ES Performing Organization Address [facility]/[place] Co de Phone Number [facility] [place] [address] * Differential, Automated (06/21/2023 3:25 AM EDT) Neutrophil % 54.0 % [facility] Neutrophil Absolute 5.02 1.70 - 6.10 x10(3)/[facility] Lymph % 31.8 % [facility] Lymphocytes Abs 3.0 0.9 - 3.2 x10(3)/[facility] Monocyte % 8.9 % [facility] Monocyte Abs 0.8 0.3 - 0.9 x10(3)/[facility] Eos % 4.2 % [facility] Eosinophils Abs 0.4 0.0 - 0.4 x10(3)/[facility] Basophil % 0.8 % [facility] Baso Absolute 0.1 0.0 - 0.1 x10(3)/[facility] Immature Gran % 0.30 % [facility] Comment: Immature granulocytes(IG's)percentage and absolute count will include metamyelocytes, myelocytes, and promyelocytes. Blood smears from CBCs yielding IG's will be scanned manually for concordance. If this scan disagrees with the automated IG or if promyelocytes are noted, a manual differential will be performed. Immature Gran Absolute 0.03 0.00 - 0.04 x10(3)/[facility] Blood 06/21/2023 3:25 AM EDT 06/21/2023 3:45 AM EDT Narrative Resulting Agency Comment Spec In Lab Terrence Keating MD HEMATOLOGY ORDERABLE S [facility] [place] [address] * Hemogram (06/21/2023 3:25 AM EDT) White Blood Cell 9.3 4.0 - 9.5 x10(3)/[facility] Red Blood Cell 4.74 4.00 - 5.21 x10(6)/[facility] Hemoglobin 14.9 11.7 - 15.5 g/dL [facility] Hematocrit 44.2 35.7 - 45.8 % [facility] Mean Cell Volume 93.2 82.6 - 94.4 fL [facility] Mean Cell Hemoglobin 31.4 27.1 - 32.0 pg [facility] Mean Cell Hemoglobin Concentration 33.7 31.7 - 35.0 g/dL [facility] Platelet 279 145 - 357 x10(3)/[facility] RDW Standard Deviation 44.7 37.0 - 46.0 fL [facility] RDW coefficient of variation 13.1 11.5 - 14.1 % [facility] Mean Platelet Volume 11.1 7.6 - 12.9 fL [facility] NRBC% auto 0.0 % [facility] NRBC Absolute 0.000 0.000 - 0.000 x10(3)/[facility] Blood 06/21/2023 3:25 AM EDT 06/21/2023 3:45 AM EDT Narrative Resulting Agency Comment Spec In Lab Terrence Keating MD HEMATOLOGY ORDERABLE S [facility] [place] [address] * (ABNORMAL) Basic Metabolic Panel (non-fasting) (06/21/2023 3:25 AM EDT) Glucose 95 65 - 199 mg/dL [facility] Comment:Diabetes: >=200 mg/d L plus symptoms Blood Urea Nitrogen 27(H) 8 - 18 mg/dL [facility] Creatinine 1.11 0.70 - 1.20 mg/dL [facility] Sodium 138 135 - 145 mmol/L [facility] Potassium Not Perf 3.5 - 5.0 [facility] Comment: Unable to quantitate [...] questions. Chloride 100 98 - 107 mmol/L [facility] Carbon Dioxide 26 22 - 31 mmol/L [facility] Anion Gap 12 5 - 15 mmol/L [facility] Calcium 9.7 8.5 - 10.5 mg/dL [facility] Est Glomerular Filtration Rate 59(L) >=60 mL/min/1. 73 m?? [facility] [...] MD CHEMISTRY ORDERABL ES Performing Organization Address City/[facility]/ZIP Co de Phone Number [facility] [place] [address] * (ABNORMAL) Phosphorus (06/21/2023 3:25 AM EDT) Phosphorus 5.1(H) 2.5 - 4.5 mg/dL [facility] Blood 06/21/2023 3:25 AM EDT 06/21/2023 3:45 AM EDT Narrative Resulting Agency Comment Spec In Lab Eufemia Copeland MD CHEMISTRY ORDERABL ES [facility] [place] [address] * Magnesium (06/21/2023 3:25 AM EDT) [facility] Magnesium 1.04 0.69 - 1.07 mmol/L [facility] Blood 06/21/2023 3:25 AM EDT 06/21/2023 3:45 AM EDT Narrative Resulting Agency Comment Spec In Lab Eufemia Copeland MD CHEMISTRY ORDERABL ES Performing Organization Address City/[facility]/ZIP Co de Phone Number [facility] [place] [address] * (ABNORMAL) Differential, Automated (06/20/2023 3:32 AM EDT) [facility] Neutrophil % 52.5 % [facility] Neutrophil Absolute 5.28 1.70 - 6.10 x10(3)/mc L [facility] Lymph % 32.4 % [facility] Lymphocytes Abs 3.3(H) 0.9 - 3.2 x10(3)/mc L [facility] Monocyte % 9.7 % [facility] Monocyte Abs 1.0(H) 0.3 - 0.9 x10(3)/mc L [facility] Eos % 4.3 % [facility] Eosinophils Abs 0.4 0.0 - 0.4 x10(3)/mc L [facility] Basophil % 0.7 % [facility] Baso Absolute 0.1 0.0 - 0.1 x10(3)/mc L [facility] Immature Gran % 0.40 % [facility] Comment: Immature granulocytes(IG's)percentage and absolute count will include metamyelocytes, myelocytes, and promyelocytes. Blood smears from CBCs yielding IG's will be scanned manually for concordance. If this scan disagrees with the automated IG or if promyelocytes are noted, a manual differential will be performed. Immature Gran Absolute 0.04 0.00 - 0.04 x10(3)/mc L [facility] Blood 06/20/2023 3:32 AM EDT 06/20/2023 3:47 AM EDT Narrative Resulting Agency Comment Spec In Lab Terrence Keating MD HEMATOLOGY ORDERABLE S [facility] [place] [address] * (ABNORMAL) Hemogram (06/20/2023 3:32 AM EDT) White Blood Cell 10.1(H) 4.0 - 9.5 x10(3)/ L [facility] Red Blood Cell 4.57 4.00 - 5.21 x10(6)/[facility] Hemoglobin 14.2 11.7 - 15.5 g/dL [facility] Hematocrit 41.5 35.7 - 45.8 % [facility] Mean Cell Volume 90.8 82.6 - 94.4 fL [facility] Mean Cell Hemoglobin 31.1 27.1 - 32.0 pg [facility] Mean Cell Hemoglobin Concentration 34.2 31.7 - 35.0 g/dL [facility] Platelet 253 145 - 357 x10(3)/[facility] LABORATORY RDW Standard Deviation 43.7 37.0 - 46.0 [facility]ORY RDW coefficient of variation 13.2 11.5 - 14.1 % [facility] Mean Platelet Volume 10.8 7.6 - 12.9 fL [facility] NRBC% auto 0.0 % [facility] NRBC Absolute 0.000 0.000 - 0.000 x10(3)/mc L [facility] Blood 06/20/2023 3:32 AM EDT 06/20/2023 3:47 AM EDT Narrative Resulting Agency Comment Spec In Lab Terrence Keating MD HEMATOLOGY ORDERABLE S [facility] [place] [address] * (ABNORMAL) Basic Metabolic Panel (non-fasting) (06/20/2023 3:32 AM EDT) Glucose 99 65 - 199 mg/dL [facility] Comment:Diabetes: >=200 mg/d L plus symptoms Blood Urea Nitrogen 26(H) 8 - 18 mg/dL [facility] Creatinine 1.12 0.70 - 1.20 mg/dL [facility] Sodium 137 135 - 145 mmol/L [facility] Potassium 3.7 3.5 - 5.0 mmol/L [facility] Comment: Please note: ??Patients with WBC >100,000 may have falsely elevated Potassium levels. ??For accurate Potassium quantification in these patients send serum separator tube (gold top) for subsequent determinations. ??Contact the Clinical Chemistry Laboratory if there are any questions. Chloride 102 98 - 107 mmol/L [facility] Carbon Dioxide 22 22 - 31 mmol/L [facility] Anion Gap 13 5 - 15 mmol/L [facility] Calcium 9.4 8.5 - 10.5 mg/dL [facility] Est Glomerular Filtration Rate 58(L) >=60 mL/min/1. 73 m?? [facility] [...] MD CHEMISTRY ORDERABL ES Performing Organization Address [facility]/[place] Co de Phone Number [facility] [place] [address] * Phosphorus (06/20/2023 3:32 AM EDT) Phosphorus 4.3 2.5 - 4.5 mg/dL [facility] Blood 06/20/2023 3:32 AM EDT 06/20/2023 3:47 AM EDT Narrative Resulting Agency Comment Spec In Lab Eufemia Copeland MD CHEMISTRY ORDERABL ES Performing Organization Address [facility] Phone Number [facility] [place] [address] * Magnesium (06/20/2023 3:32 AM EDT) Magnesium 1.00 0.69 - 1.07 mmol/L [facility] Blood 06/20/2023 3:32 AM EDT 06/20/2023 3:47 AM EDT Narrative Resulting Agency Comment Spec In Lab Eufemia Copeland MD CHEMISTRY ORDERABL ES Performing Organization Address [facility] de Phone Number [facility] [place] [address] * Phosphorus (06/19/2023 5:26 PM EDT) Phosphorus 4.0 2.5 - 4.5 mg/dL [facility] Blood 06/19/2023 5:26 PM EDT 06/19/2023 5:32 PM EDT Narrative Resulting Agency Comment Spec In Lab Eufemia Copeland MD CHEMISTRY ORDERABL ES Performing Organization Address [facility]/ZIP Co de Phone Number [facility] [place] [address] * Magnesium (06/19/2023 5:26 PM EDT) Magnesium 0.98 0.69 - 1.07 mmol/L [facility] Blood 06/19/2023 5:26 PM EDT 06/19/2023 5:32 PM EDT Narrative Resulting Agency Comment Spec In Lab Eufemia Copeland MD CHEMISTRY ORDERABL ES [facility] [place] [address] * (ABNORMAL) Basic Metabolic Panel (non-fasting) (06/19/2023 5:26 PM EDT) Glucose 105 65 - 199 mg/dL [facility] Comment:Diabetes: >=200 mg/d L plus symptoms Blood Urea Nitrogen 21(H) 8 - 18 mg/dL [facility] Creatinine 1.06 0.70 - 1.20 mg/dL [facility] Sodium 139 135 - 145 mmol/L [facility] Potassium 3.9 3.5 - 5.0 mmol/L [facility] Comment: Please note: ??Patients with WBC >100,000 may have falsely elevated Potassium levels. ??For accurate Potassium quantification in these patients send serum separator tube (gold top) for subsequent determinations. ??Contact the Clinical Chemistry Laboratory if there are any questions. Chloride 103 98 - 107 mmol/L [facility] Carbon Dioxide 22 22 - 31 mmol/L [facility] Anion Gap 14 5 - 15 mmol/L [facility] Calcium 9.5 8.5 - 10.5 mg/dL [facility] Est Glomerular Filtration Rate 62 >=60 mL/min/1. 73 m?? [facility] [...] MD CHEMISTRY ORDERABL ES Performing Organization Address [facility] Co de Phone Number [facility] [place] [address] * EKG 12 Lead (06/19/2023 4:24 AM EDT) Ventricular rate 66 BPM MUSE SYSTEM Atrial Rate 66 BPM MUSE SYSTEM P-R Interval 188 ms MUSE SYSTEM QRS Duration 92 ms MUSE SYSTEM Q-T Interval 484 ms MUSE SYSTEM QTC Calculated (Bezet) 507 ms MUSE SYSTEM Calculated P [place] 32 degrees MUSE SYSTEM Calculated R [place] 22 degrees MUSE SYSTEM Calculated T [place] 47 degrees MUSE SYSTEM INTERPRETATION Normal sinus rhythm Nonspecific ST abnormality Prolonged QT Abnormal ECG When compared with ECG of 15-JUN-2023 10:50, No significant change was found Confirmed by MD AKIRA, CINDY ([id number]) on 06/19/2023 2:42:42 PM MUSE SYSTEM 06/19/2023 4:24 AM EDT 06/19/2023 2:42 PM EDT Terrence Keating MD ECG ORDERABLES Performing Organization Address [facility] Co de Phone Number MUSE SYSTEM * (ABNORMAL) Basic Metabolic Panel (non-fasting) (06/19/2023 3:22 AM EDT) Glucose 101 65 - 199 mg/dL [facility] Comment:Diabetes: >=200 mg/d L plus symptoms Blood Urea Nitrogen 24(H) 8 - 18 mg/dL [facility] Creatinine 1.04 0.70 - 1.20 mg/dL [facility] Sodium 137 135 - 145 mmol/L [facility] Potassium 3.6 3.5 - 5.0 mmol/L [facility] Comment: Please note: ??Patients with WBC >100,000 may have falsely elevated Potassium levels. ??For accurate Potassium quantification in these patients send serum separator tube (gold top) for subsequent determinations. ??Contact the Clinical Chemistry Laboratory if there are any questions. Chloride 100 98 - 107 mmol/L [facility] Carbon Dioxide Not Perf - [facility] Comment:Add-on request. Samp le too old to perform test. Anion Gap Unable to Calculate 5 - 15 mmol/L [facility] Calcium 9.4 8.5 - 10.5 mg/dL [facility] Est Glomerular Filtration Rate 64 >=60 mL/min/1 .73 m?? [facility] Comment: This [...] Lab Eufemia Copeland MD CHEMISTRY ORDERABL ES [facility] [place] [address] * Differential, Automated (06/19/2023 3:22 AM EDT) Neutrophil % 54.0 % [facility] Neutrophil Absolute 5.08 1.70 - 6.10 x10(3)/[facility] Lymph % 30.7 % [facility] Lymphocytes Abs 2.9 0.9 - 3.2 x10(3)/[facility] Monocyte % 10.0 % [facility] Monocyte Abs 0.9 0.3 - 0.9 x10(3)/[facility] Eos % 4.5 % [facility] Eosinophils Abs 0.4 0.0 - 0.4 x10(3)/[facility] Basophil % 0.6 % [facility] Baso Absolute 0.1 0.0 - 0.1 x10(3)/[facility] Immature Gran % 0.20 % [facility] Comment: Immature granulocytes(IG's)percentage and absolute count will include metamyelocytes, myelocytes, and promyelocytes. Blood smears from CBCs yielding IG's will be scanned manually for concordance. If this scan disagrees with the automated IG or if promyelocytes are noted, a manual differential will be performed. Immature Gran Absolute 0.02 0.00 - 0.04 x10(3)/[facility] Blood 06/19/2023 3:22 AM EDT 06/19/2023 3:47 AM EDT Narrative Resulting Agency Comment Spec In Lab Terrence Keating MD HEMATOLOGY ORDERABLE S [facility] [place] [address] * Hemogram (06/19/2023 3:22 AM EDT) White Blood Cell 9.4 4.0 - 9.5 x10(3)/[facility] Red Blood Cell 4.48 4.00 - 5.21 x10(6)/[facility] Hemoglobin 13.9 11.7 - 15.5 g/dL [facility] Hematocrit 41.7 35.7 - 45.8 % [facility] Mean Cell Volume 93.1 82.6 - 94.4 fL [facility] Mean Cell Hemoglobin 31.0 27.1 - 32.0 pg [facility] Mean Cell Hemoglobin Concentration 33.3 31.7 - 35.0 g/dL [facility] Platelet 244 145 - 357 x10(3)/[facility] RDW Standard Deviation 44.2 37.0 - 46.0 fL [facility] RDW coefficient of variation 12.9 11.5 - 14.1 % [facility] Mean Platelet Volume 10.9 7.6 - 12.9 fL [facility] NRBC% auto 0.0 % [facility] NRBC Absolute 0.000 0.000 - 0.000 x10(3)/[facility] Blood 06/19/2023 3:22 AM EDT 06/19/2023 3:47 AM EDT Narrative Resulting Agency Comment Spec In Lab Terrence Keating MD HEMATOLOGY ORDERABLE S Performing Organization Address City/[facility]/ZIP Co de Phone Number [facility] [place] [address] * Phosphorus (06/19/2023 3:22 AM EDT) Phosphorus 4.1 2.5 - 4.5 mg/dL [facility] Blood 06/19/2023 3:22 AM EDT 06/19/2023 3:47 AM EDT Narrative Resulting Agency Comment Spec In Lab Eufemia Copeland MD CHEMISTRY ORDERABL ES Performing Organization Address City/[facility]/ZIP Co de Phone Number [facility] [place] [address] * Magnesium (06/19/2023 3:22 AM EDT) Magnesium 1.00 0.69 - 1.07 mmol/L [facility] Blood 06/19/2023 3:22 AM EDT 06/19/2023 3:47 AM EDT Narrative Resulting Agency Comment Spec In Lab Eufemia Copeland MD CHEMISTRY ORDERABL ES [facility] [place] [address] * (ABNORMAL) Basic Metabolic Panel (non-fasting) (06/18/2023 5:17 PM EDT) Glucose 115 65 - 199 mg/dL [facility] Comment:Diabetes: >=200 mg/d L plus symptoms Blood Urea Nitrogen 22(H) 8 - 18 mg/dL [facility] Creatinine 1.12 0.70 - 1.20 mg/dL [facility] Sodium 137 135 - 145 mmol/L [facility] Potassium 4.2 3.5 - 5.0 mmol/L [facility] Comment: Please note: ??Patients with WBC >100,000 may have falsely elevated Potassium levels. ??For accurate Potassium quantification in these patients send serum separator tube (gold top) for subsequent determinations. ??Contact the Clinical Chemistry Laboratory if there are any questions. Chloride 101 98 - 107 mmol/L [facility] Carbon Dioxide 22 22 - 31 mmol/L [facility] Anion Gap 14 5 - 15 mmol/L [facility] Calcium 9.6 8.5 - 10.5 mg/dL [facility] Est Glomerular Filtration Rate 58(L) >=60 mL/min/1. 73 m?? [facility] Lab Eufemia Copeland MD CHEMISTRY ORDERABL ES [facility] [place] [address] * (ABNORMAL) Basic Metabolic Panel (non-fasting) (06/18/2023 4:19 AM EDT) Glucose 96 65 - 199 mg/dL [facility] Comment:Diabetes: >=200 mg/d L plus symptoms Blood Urea Nitrogen 22(H) 8 - 18 mg/dL [facility] Creatinine 0.93 0.70 - 1.20 mg/dL [facility] [...] questions. Chloride 102 98 - 107 mmol/L [facility] Carbon Dioxide Not Perf 22 - 31 [facility] Comment:Add-on request. Samp le too old to perform test. Anion Gap Unable to Calculate 5 - 15 mmol/L [facility] Calcium 9.5 8.5 - 10.5 mg/dL [facility] Est Glomerular Filtration Rate 73 >=60 mL/min/1 .73 m?? [facility] Comment: This [...] Lab Eufemia Copeland MD CHEMISTRY ORDERABL ES [facility] [place] [address] * Differential, Automated (06/18/2023 4:19 AM EDT) Neutrophil % 54.1 % [facility] Neutrophil Absolute 4.52 1.70 - 6.10 x10(3)/[facility] Lymph % 31.0 % [facility] Lymphocytes Abs 2.6 0.9 - 3.2 x10(3)/[facility] Monocyte % 9.2 % [facility] Monocyte Abs 0.8 0.3 - 0.9 x10(3)/[facility] Eos % 4.9 % [facility] Eosinophils Abs 0.4 0.0 - 0.4 x10(3)/[facility] Basophil % 0.6 % [facility] Baso Absolute 0.0 0.0 - 0.1 x10(3)/[facility] Immature Gran % 0.20 % [facility] Comment: Immature granulocytes(IG's)percentage and absolute count will include metamyelocytes, myelocytes, and promyelocytes. Blood smears from CBCs yielding IG's will be scanned manually for concordance. If this scan disagrees with the automated IG or if promyelocytes are noted, a manual differential will be performed. Immature Gran Absolute 0.02 0.00 - 0.04 x10(3)/[facility] Blood 06/18/2023 4:19 AM EDT 06/18/2023 4:40 AM EDT Narrative Resulting Agency Comment Spec In Lab Terrence Keating MD HEMATOLOGY ORDERABLE S [facility] [place] [address] * Hemogram (06/18/2023 4:19 AM EDT) White Blood Cell 8.4 4.0 - 9.5 x10(3)/[facility] Red Blood Cell 4.70 4.00 - 5.21 x10(6)/[facility] Hemoglobin 14.5 11.7 - 15.5 g/dL [facility] Hematocrit 42.8 35.7 - 45.8 % [facility] Mean Cell Volume 91.1 82.6 - 94.4 [facility] Mean Cell Hemoglobin 30.9 27.1 - 32.0 pg [facility] Mean Cell Hemoglobin Concentration 33.9 31.7 - 35.0 g/dL [facility] Platelet 258 145 - 357 x10(3)/[facility] RDW Standard Deviation 43.6 37.0 - 46.0 [facility] RDW coefficient of variation 13.0 11.5 - 14.1 % [facility] Mean Platelet Volume 10.7 7.6 - 12.9 [facility] NRBC% auto 0.0 % [facility] NRBC Absolute 0.000 0.000 - 0.000 x10(3)/[facility] Blood 06/18/2023 4:19 AM EDT 06/18/2023 4:40 AM EDT Narrative Resulting Agency Comment Spec In Lab Terrence Keating MD HEMATOLOGY ORDERABLE S [facility] [place] [address] * Phosphorus (06/18/2023 4:19 AM EDT) Phosphorus 3.7 2.5 - 4.5 mg/dL [facility] Blood 06/18/2023 4:19 AM EDT 06/18/2023 4:40 AM EDT Narrative Resulting Agency Comment Spec In Lab Eufemia Copeland MD CHEMISTRY ORDERABL ES Performing Organization Address City/[facility]/[place] Co de Phone Number [facility] [place] [address] * Magnesium (06/18/2023 4:19 AM EDT) Magnesium 1.02 0.69 - 1.07 mmol/L [facility] Blood 06/18/2023 4:19 AM EDT 06/18/2023 4:40 AM EDT Narrative Resulting Agency Comment Spec In Lab Eufemia Copeland MD CHEMISTRY ORDERABL ES Performing Organization Address [facility]/ZIP Co de Phone Number [facility] [place] [address] * Phosphorus (06/17/2023 2:26 PM EDT) Phosphorus 2.8 2.5 - 4.5 mg/dL [facility] Blood 06/17/2023 2:26 PM EDT 06/17/2023 2:36 PM EDT Narrative Resulting Agency Comment Spec In Lab Eufemia Copeland MD CHEMISTRY ORDERABL ES Performing Organization Address City/[facility]/[place] Co de Phone Number [facility] [place] [address] * Magnesium (06/17/2023 2:26 PM EDT) Magnesium 1.01 0.69 - 1.07 mmol/L [facility] Blood 06/17/2023 2:26 PM EDT 06/17/2023 2:36 PM EDT Narrative Resulting Agency Comment Spec In Lab Eufemia Copeland MD CHEMISTRY ORDERABL ES [facility] [place] [address] * (ABNORMAL) Basic Metabolic Panel (non-fasting) (06/17/2023 2:26 PM EDT) Glucose 103 65 - 199 mg/dL [facility] Comment:Diabetes: >=200 mg/d L plus symptoms Blood Urea Nitrogen 21(H) 8 - 18 mg/dL [facility] Creatinine 1.07 0.70 - 1.20 mg/dL [facility] Sodium 135 135 - 145 mmol/L [facility] Potassium 3.7 3.5 - 5.0 mmol/L [facility] Comment: Please note: ??Patients with WBC >100,000 may have falsely elevated Potassium levels. ??For accurate Potassium quantification in these patients send serum separator tube (gold top) for subsequent determinations. ??Contact the Clinical Chemistry Laboratory if there are any questions. Chloride 97(L) 98 - 107 mmol/L [facility] Carbon Dioxide 24 22 - 31 mmol/L [facility] Anion Gap 14 5 - 15 mmol/L [facility] Calcium 9.6 8.5 - 10.5 mg/dL [facility] Est Glomerular Filtration Rate 62 >=60 mL/min/1. 73 m?? [facility] [...] Lab Eufemia Copeland MD CHEMISTRY ORDERABL ES [facility] [place] [address] * XR Abdomen Flat & Upright (06/17/2023 [...] who have questions please contact the health cna caregiver that requested your imaging first. ? Electronically signed by: Wilton Cabrera MD, [facility] ([phone]), at 06/17/2023 5:30 PM Narrative 06/17/2023 5:30 [...] patients who have questions please contactthe health cna caregiver that requested your imaging first. Electronically signed by: Wilton Cabrera MD, [facility]([phone]), at 06/17/2023 5:30 PM Eufemia Copeland MD IMG DX ORDERABLES * (ABNORMAL) Basic Metabolic Panel (non-fasting) (06/17/2023 5:01 AM EDT) Glucose 100 65 - 199 mg/dL [facility] Comment:Diabetes: >=200 mg/d L plus symptoms Blood Urea Nitrogen 24(H) 8 - 18 mg/dL [facility] Creatinine 1.03 0.70 - 1.20 mg/dL [facility] Sodium 136 135 - 145 mmol/L [facility] Potassium Not Perf 3.5 - 5.0 [facility] Comment: Unable to quantitate [...] questions. Chloride 100 98 - 107 mmol/L [facility] Carbon Dioxide 24 22 - 31 mmol/L [facility] Anion Gap 12 5 - 15 mmol/L [facility] Calcium 9.5 8.5 - 10.5 mg/dL [facility] Est Glomerular Filtration Rate 65 >=60 mL/min/1. 73 m?? [facility] [...] In Lab Terrence Keating MD CHEMISTRY ORDERABLES [facility] [place] [id number] * Differential, Automated (06/17/2023 1:11 AM EDT) Neutrophil % 54.5 % [facility] Neutrophil Absolute 5.20 1.70 - 6.10 x10(3)/[facility] Lymph % 31.4 % [facility] Lymphocytes Abs 3.0 0.9 - 3.2 x10(3)/[facility] Monocyte % 9.8 % [facility] Monocyte Abs 0.9 0.3 - 0.9 x10(3)/[facility] Eos % 3.4 % [facility] Eosinophils Abs 0.3 0.0 - 0.4 x10(3)/[facility] Basophil % 0.5 % [facility] Baso Absolute 0.0 0.0 - 0.1 x10(3)/[facility] Immature Gran % 0.40 % [facility] Comment: Immature granulocytes(IG's)percentage and absolute count will include metamyelocytes, myelocytes, and promyelocytes. Blood smears from CBCs yielding IG's will be scanned manually for concordance. If this scan disagrees with the automated IG or if promyelocytes are noted, a manual differential will be performed. Immature Gran Absolute 0.04 0.00 - 0.04 x10(3)/[facility] Blood 06/17/2023 1:11 AM EDT 06/17/2023 1:16 AM EDT Narrative Resulting Agency Comment Spec In Lab Terrence Keating MD HEMATOLOGY ORDERABLE S Performing Organization Address City/State/[place] Co de Phone Number [facility] [place] [address] * Hemogram (06/17/2023 1:11 AM EDT) White Blood Cell 9.5 4.0 - 9.5 x10(3)/[facility] Red Blood Cell 4.60 4.00 - 5.21 x10(6)/[facility] Hemoglobin 14.2 11.7 - 15.5 g/dL [facility] Hematocrit 43.0 35.7 - 45.8 % [facility] Mean Cell Volume 93.5 82.6 - 94.4 fL [facility] Mean Cell Hemoglobin 30.9 27.1 - 32.0 pg [facility] Mean Cell Hemoglobin Concentration 33.0 31.7 - 35.0 g/dL [facility] Platelet 256 145 - 357 x10(3)/[facility] RDW Standard Deviation 45.0 37.0 - 46.0 fL [facility] RDW coefficient of variation 13.2 11.5 - 14.1 % [facility] Mean Platelet Volume 10.9 7.6 - 12.9 fL [facility] NRBC% auto 0.0 % [facility] NRBC Absolute 0.000 0.000 - 0.000 x10(3)/mcL [facility] Blood 06/17/2023 1:11 AM EDT 06/17/2023 1:16 AM EDT Narrative Resulting Agency Comment Spec In Lab Terrence Keating MD HEMATOLOGY ORDERABLE S Performing Organization Address [facility]/ZIP Co de Phone Number [facility] [place] [address] * Magnesium (06/17/2023 1:11 AM EDT) Magnesium 0.96 0.69 - 1.07 mmol/L [facility] Blood 06/17/2023 1:11 AM EDT 06/17/2023 1:16 AM EDT Narrative Resulting Agency Comment Spec In Lab Eufemia Copeland MD CHEMISTRY ORDERABL ES Performing Organization Address [facility]/[place] Co de Phone Number [facility] [place] [address] * (ABNORMAL) Basic Metabolic Panel (non-fasting) (06/17/2023 1:11 AM EDT) Glucose 102 65 - 199 mg/dL [facility] Comment:Diabetes: >=200 mg/d L plus symptoms Blood Urea Nitrogen 24(H) 8 - 18 mg/dL [facility] Creatinine 1.08 0.70 - 1.20 mg/dL [facility] Sodium 137 135 - 145 mmol/L [facility] Potassium 4.1 3.5 - 5.0 mmol/L [facility] Comment: Please note: ??Patients with WBC >100,000 may have falsely elevated Potassium levels. ??For accurate Potassium quantification in these patients send serum separator tube (gold top) for subsequent determinations. ??Contact the Clinical Chemistry Laboratory if there are any questions. Chloride 100 98 - 107 mmol/L [facility] Carbon Dioxide 24 22 - 31 mmol/L [facility] Anion Gap 13 5 - 15 mmol/L [facility] Calcium 9.2 8.5 - 10.5 mg/dL [facility] Est Glomerular Filtration Rate 61 >=60 mL/min/1. 73 m?? [facility] [...] In Lab Terrence Keating MD CHEMISTRY ORDERABLES [facility] [place] [address] * (ABNORMAL) Basic Metabolic Panel (non-fasting) (06/16/2023 8:28 PM EDT) Glucose 111 65 - 199 mg/dL [facility] Comment:Diabetes: >=200 mg/d L plus symptoms Blood Urea Nitrogen 23(H) 8 - 18 mg/dL [facility] Creatinine 1.21(H) 0.70 - 1.20 mg/dL [facility] Sodium 137 135 - 145 mmol/L [facility] Potassium 4.2 3.5 - 5.0 mmol/L [facility] Comment: Please note: ??Patients with WBC >100,000 may have falsely elevated Potassium levels. ??For accurate Potassium quantification in these patients send serum separator tube (gold top) for subsequent determinations. ??Contact the Clinical Chemistry Laboratory if there are any questions. Chloride 99 98 - 107 mmol/L [facility] Carbon Dioxide 26 22 - 31 mmol/L [facility] Anion Gap 12 5 - 15 mmol/L [facility] Calcium 9.3 8.5 - 10.5 mg/dL [facility] Est Glomerular Filtration Rate 53(L) >=60 mL/min/1. 73 m?? [facility] [...] Lab Eufemia Copeland MD CHEMISTRY ORDERABL ES [facility] [place] [address] * (ABNORMAL) Basic Metabolic Panel (non-fasting) (06/16/2023 2:29 PM EDT) Glucose 175 65 - 199 mg/dL [facility] Comment:Diabetes: >=200 mg/d L plus symptoms Blood Urea Nitrogen 25(H) 8 - 18 mg/dL [facility] Creatinine 1.27(H) 0.70 - 1.20 mg/dL [facility] Sodium 135 135 - 145 mmol/L [facility] Potassium 3.9 3.5 - 5.0 mmol/L [facility] Comment: result rechecked-EL Please note: ??Patients with WBC >100,000 may have falsely elevated Potassium levels. ??For accurate Potassium quantification in these patients send serum separator tube (gold top) for subsequent determinations. ??Contact the Clinical Chemistry Laboratory if there are any questions. Chloride 96(L) 98 - 107 mmol/L [facility] Carbon Dioxide 26 22 - 31 mmol/L [facility] Anion Gap 13 5 - 15 mmol/L [facility] Calcium 9.3 8.5 - 10.5 mg/dL [facility] Est Glomerular Filtration Rate 50(L) >=60 mL/min/1. 73 m?? [facility] [...] Lab Eufemia Copeland MD CHEMISTRY ORDERABL ES [facility] [place] [address] * (ABNORMAL) Basic Metabolic Panel (non-fasting) (06/16/2023 9:01 AM EDT) Glucose 148 65 - 199 mg/dL [facility] Comment:Diabetes: >=200 mg/d L plus symptoms Blood Urea Nitrogen 27(H) 8 - 18 mg/dL [facility] Creatinine 1.27(H) 0.70 - 1.20 mg/dL [facility] Sodium 136 135 - 145 mmol/L [facility] Potassium 2.9(Criti edy) 3.5 - 5.0 mmol/L [facility] Comment: called by tmp /read back by (Malia Mcintyre)/ 06/16/23 @786 Please note: ??Patients with WBC >100,000 may have falsely elevated Potassium levels. ??For accurate Potassium quantification in these patients send serum separator tube (gold top) for subsequent determinations. ??Contact the Clinical Chemistry Laboratory if there are any questions. Chloride 91(L) 98 - 107 mmol/L [facility] Carbon Dioxide 32(H) 22 - 31 mmol/L [facility] Anion Gap 13 5 - 15 mmol/L [facility] Calcium 9.7 8.5 - 10.5 mg/dL [facility] Est Glomerular Filtration Rate 50(L) >=60 mL/min/1. 73 m?? [facility] [...] Lab Eufemia Copeland MD CHEMISTRY ORDERABL ES [facility] [place] [address] * (ABNORMAL) Magnesium (06/16/2023 3:30 AM EDT) Magnesium 1.09(H) 0.69 - 1.07 mmol/L [facility] Blood Venous Draw / Unknown 06/16/2023 3:30 AM EDT 06/16/2023 3:38 AM EDT Narrative Resulting Agency Comment Spec In Lab Eufemia Copeland MD CHEMISTRY ORDERABL ES Performing Organization Address City/[facility]/ZIP Co de Phone Number [facility] [place] [address] * (ABNORMAL) Differential, Automated (06/16/2023 3:30 AM EDT) Neutrophil % 50.4 % [facility] Neutrophil Absolute 4.15 1.70 - 6.10 x10(3)/mc L [facility] Lymph % 33.7 % [facility] Lymphocytes Abs 2.8 0.9 - 3.2 x10(3)/mc L [facility] Monocyte % 11.8 % [facility] Monocyte Abs 1.0(H) 0.3 - 0.9 x10(3)/mc L [facility] Eos % 3.3 % [facility] Eosinophils Abs 0.3 0.0 - 0.4 x10(3)/mc L [facility] Basophil % 0.6 % [facility] Baso Absolute 0.0 0.0 - 0.1 x10(3)/mc L [facility] Immature Gran % 0.20 % [facility] Comment: Immature granulocytes(IG's)percentage and absolute count will include metamyelocytes, myelocytes, and promyelocytes. Blood smears from CBCs yielding IG's will be scanned manually for concordance. If this scan disagrees with the automated IG or if promyelocytes are noted, a manual differential will be performed. Immature Gran Absolute 0.02 0.00 - 0.04 x10(3)/mc L [facility] Blood 06/16/2023 3:30 AM EDT 06/16/2023 3:37 AM EDT Narrative Resulting Agency Comment Spec In Lab Terrence Keating MD HEMATOLOGY ORDERABLE S [facility] [place] [address] * Hemogram (06/16/2023 3:30 AM EDT) [facility] White Blood Cell 8.2 4.0 - 9.5 x10(3)/[facility] Red Blood Cell 4.69 4.00 - 5.21 x10(6)/[facility] Hemoglobin 14.5 11.7 - 15.5 g/dL [facility] Hematocrit 42.7 35.7 - 45.8 % [facility] Mean Cell Volume 91.0 82.6 - 94.4 fL [facility] Mean Cell Hemoglobin 30.9 27.1 - 32.0 pg [facility] Mean Cell Hemoglobin Concentration 34.0 31.7 - 35.0 g/dL [facility] Platelet 260 145 - 357 x10(3)/[facility] RDW Standard Deviation 43.5 37.0 - 46.0 [facility] RDW coefficient of variation 13.0 11.5 - 14.1 % [facility] Mean Platelet Volume 11.1 7.6 - 12.9 fL [facility] NRBC% auto 0.0 % [facility] NRBC Absolute 0.000 0.000 - 0.000 x10(3)/[facility] Blood 06/16/2023 3:30 AM EDT 06/16/2023 3:37 AM EDT Narrative Resulting Agency Comment Spec In Lab Terrence Keating MD HEMATOLOGY ORDERABLE S [facility] [place] [address] * (ABNORMAL) Basic Metabolic Panel (non-fasting) (06/16/2023 3:30 AM EDT) [facility] Glucose 110 65 - 199 mg/dL [facility] Comment:Diabetes: >=200 mg/d L plus symptoms Blood Urea Nitrogen 28(H) 8 - 18 mg/dL [facility] Creatinine 1.20 0.70 - 1.20 mg/dL [facility] Sodium 135 135 - 145 mmol/L [facility] Potassium 2.7(Criti edy) 3.5 - 5.0 mmol/L [facility] Comment: called by KS /read back by Jolly Friedman / 06/16/23 [id number] Please note: ??Patients with WBC >100,000 may have falsely elevated Potassium levels. ??For accurate Potassium quantification in these patients send serum separator tube (gold top) for subsequent determinations. ??Contact the Clinical Chemistry Laboratory if there are any questions. Chloride 90(L) 98 - 107 mmol/L [facility] Carbon Dioxide 33(H) 22 - 31 mmol/L [facility] Anion Gap 12 5 - 15 mmol/L [facility] Calcium 9.2 8.5 - 10.5 mg/dL [facility] Est Glomerular Filtration Rate 54(L) >=60 mL/min/1. 73 m?? [facility] [...] Lab Eufemia Copeland MD CHEMISTRY ORDERABL ES [facility] [place] [address] * Heparin (unfractionated) Level (06/16/2023 3:30 AM EDT) UF Heparin 0.64 IU/mL [facility] Comment: [...] Lab Terrence Keating MD HEMATOLOGY ORDERABLE S [facility] [place] [address] * Lipid Panel (Reflex Direct LDL) (06/16/2023 3:30 AM EDT) Pathologist [facility] Cholesterol, Total 190 mg/dL [facility] Comment: Desirable: ? <200 mg/dL Borderline High: 200-239 mg/dL Higher: ?>lq=987 mg/dL Triglyceride 126 mg/dL [facility] Comment: Normal: ?<150 mg/dL Borderline High: 150-199 mg/dL High: ?200-499 mg/dL Very High: ? >pk=370 mg/dL HDL Cholesterol 50 mg/dL [facility] Comment: Females: High Risk: <50 mg/dL Males: High Risk: <40 mg/dL LDL Cholesterol 115 mg/dL [facility] Comment: Desirable: ? <100 mg/dL Above Desirable: 100-129 mg/dL Borderline High: 130-159 mg/dL High: ?160-189 mg/dL Very High: ? >iv=869 mg/dL Lipid Interpretation See Note [facility] Comment: It is important [...] ACC/AHA Guidelines (most recently Ysabel et al. [facility] 12/09/21): For individuals with atherosclerotic cardiovascular disease (ASCVD)or LDL >wy=399 mg/dL, use a high-intensity statin (40-80 mg [...] In Lab Terrence Keating MD CHEMISTRY ORDERABLES [facility] [place] [address] * (ABNORMAL) Basic Metabolic Panel (non-fasting) (06/15/2023 9:33 PM EDT) Glucose 120 65 - 199 mg/dL [facility] Comment:Diabetes: >=200 mg/d L plus symptoms Blood Urea Nitrogen 29(H) 8 - 18 mg/dL [facility] Creatinine 1.38(H) 0.70 - 1.20 mg/dL [facility] Sodium 135 135 - 145 mmol/L [facility] Potassium 3.1(L) 3.5 - 5.0 mmol/L [facility] Comment: Please note: ??Patients with WBC >100,000 may have falsely elevated Potassium levels. ??For accurate Potassium quantification in these patients send serum separator tube (gold top) for subsequent determinations. ??Contact the Clinical Chemistry Laboratory if there are any questions. Chloride 92(L) 98 - 107 mmol/L [facility] Carbon Dioxide 31 22 - 31 mmol/L [facility] Anion Gap 12 5 - 15 mmol/L [facility] Calcium 9.4 8.5 - 10.5 mg/dL [facility] Est Glomerular Filtration Rate 45(L) >=60 mL/min/1. 73 m?? [facility] MD CHEMISTRY ORDERABL ES Performing Organization Address City/[facility]/ZIP Co de Phone Number [facility] [place] [address] * Heparin (unfractionated) Level (06/15/2023 9:33 PM EDT) UF Heparin 0.63 IU/mL [facility] Comment: [...] MD HEMATOLOGY ORDERABLE S Performing Organization Address [facility]/ZIP Co de Phone Number [facility] [place] [address] * (ABNORMAL) Magnesium (06/15/2023 5:47 PM EDT) Magnesium 1.10(H) 0.69 - 1.07 mmol/L [facility] Blood Venous Draw / Unknown 06/15/2023 5:47 PM EDT 06/15/2023 6:10 PM EDT Narrative Resulting Agency Comment Spec In Lab Terrence Keating MD CHEMISTRY ORDERABLES [facility] [place] [address] * (ABNORMAL) Basic Metabolic Panel (non-fasting) (06/15/2023 5:47 PM EDT) Glucose 147 65 - 199 mg/dL [facility] Comment:Diabetes: >=200 mg/d L plus symptoms Blood Urea Nitrogen 29(H) 8 - 18 mg/dL [facility] Creatinine 1.20 0.70 - 1.20 mg/dL [facility] Sodium 134(L) 135 - 145 mmol/L [facility] Potassium 2.9(Criti edy) 3.5 - 5.0 mmol/L [facility] Comment: Called by: dm, Read back by: qamar ren, Date/Time:06/15/23 19:11. Please note: ??Patients with WBC >100,000 may have falsely elevated Potassium levels. ??For accurate Potassium quantification in these patients send serum separator tube (gold top) for subsequent determinations. ??Contact the Clinical Chemistry Laboratory if there are any questions. Chloride 89(L) 98 - 107 mmol/L [facility] Carbon Dioxide 29 22 - 31 mmol/L [facility] Anion Gap 16(H) 5 - 15 mmol/L [facility] Calcium 9.1 8.5 - 10.5 mg/dL [facility] Est Glomerular Filtration Rate 54(L) >=60 mL/min/1. 73 m?? [facility] [...] Lab Eufemia Copeland MD CHEMISTRY ORDERABL ES [facility] [place] [address] * Rapid Drug Screen w/o Confirmation, Urine (06/15/2023 4:46 PM EDT) Pathologist [facility] Barbiturates Screen, Urine None Detected None Detected [facility] Comment: The barbiturate screen [...] Benzodiazepines Screen, Urine None Detected None Detected [facility] Comment: The benzodiazepines screen [...] Cocaine Screen, Urine None Detected None Detected [facility] Comment: The cocaine metabolites screen detects benzoylecgonine (Cocaine Metabolite) at concentrations >150 ng/mL. A ? Presumptive Positive? result indicates that the screening result was positive but has not yet been confirmed by a highly-specific method. As with any screen, occasional false positive results from cross-reacting substances may occur. Not for Medico-Legal Purposes. Methadone Metabolites Screen, Urine None Detected None Detected [facility] Comment: The methadone metabolite screen detects EDDP (major methadone metabolite) at concentrations >100 ng/mL. A ? Presumptive Positive? result indicates that the screening result was positive but has not yet been confirmed by a highly-specific method. As with any screen, occasional false positive results from cross-reacting substances may occur. Not for Medico-Legal Purposes. Opiate Screen, Urine None Detected None Detected [facility] Comment: The opiates screen [...] Cannabinoid Screen, Urine None Detected None Detected [facility] Comment: The marijuana metabolites screen detects the THC metabolite (14-kuo-0-carboxy-delta 9-THC) at concentrations >20 ng/mL. A ? Presumptive Positive? result indicates that the screening result was positive but has not yet been confirmed by a highly-specific method. As with any screen, occasional false positive results from cross-reacting substances may occur. Not for Medico-Legal Purposes. Oxycodone Screen, Urine None Detected None Detected [facility] Comment: The oxycodone screen detects oxycodone and oxymorphone at concentrations >100 ng/mL. A ? Presumptive Positive? result indicates that the screening result was positive but has not yet been confirmed by a highly-specific method. As with any screen, occasional false positive results from cross-reacting substances may occur. Not for Medico-Legal Purposes. Buprenorphine Screen, Urine None Detected None Detected [facility] Comment: The buprenorphine screen [...] of this test were determined by [facility] in accordance with CLIA requirements. This laboratory is qualified under CLIA to perform high-complexity testing. Fentanyl Screen, Urine None Detected None Detected [facility] Comment: The fentanyl screen [...] this test were determined by [facility] in accordance with CLIA requirements. This laboratory is qualified under CLIA to perform high-complexity testing. Tricyclics Screen, Urine None Detected None Detected [facility] Comment: The tricyclics screen [...] of this test were determined by [facility] in accordance with CLIA requirements. This laboratory is qualified under CLIA to perform high-complexity testing. Ethanol Screen, Urine None Detected None Detected [facility] Comment:This urine ethanol a ssay detects ethanol at concentrations >/= 100 mg/L. Amphetamines Screen, Urine None Detected None Detected [facility] Comment: The amphetamine screen detects d-amphetamine and d-methamphetamine at concentrations >300 ng/mL. A ? Presumptive Positive? result indicates that the screening result was positive but has not yet been confirmed by a highly-specific method. As with any screen, occasional false positive results from cross-reacting substances may occur. Not for Medico-Legal Purposes. Creatinine Specimen Validity Test, Urine 39 >=20 mg/dL [facility] Chromate Specimen Validity Test, Urine <2.0 <=49.9 mg/L [facility] Nitrite Specimen Validity Test, Urine <50 <=499 mg/L [facility] Oxidant Specimen Validity Test, Urine 12 <=199 mg/L [facility] pH Specimen Validity Test, Urine 5.4 3.0 - 10.9 [facility] Adulterants Screen, Urine None Detected None Detected [facility] Comment:No adulteration of t his urine sample was detected. Urine 06/15/2023 4:46 PM EDT 06/15/2023 5:30 PM EDT Narrative Resulting Agency Comment Spec In Lab Eufemia Copeland MD CHEMISTRY ORDERABL ES Performing Organization Address [facility]/[place] Co de Phone Number [facility] [place] [address] * Rapid Drug Screen, Urine (TEE Request) (06/15/2023 4:46 PM EDT) TEE Conf Requested No [facility] TEE Requested See Comment [facility] Comment:Refer to Rapid Drug Screen w/o Confirmation, Urine for results. Urine 06/15/2023 4:46 PM EDT 06/15/2023 5:30 PM EDT Narrative Resulting Agency Comment Spec In Lab Eufemia Copeland MD URINE ORDERABLES Performing Organization Address [facility] Co de Phone Number [facility] [place] [address] * (ABNORMAL) Basic Metabolic Panel (non-fasting) (06/15/2023 2:29 PM EDT) Glucose 141 65 - 199 mg/dL [facility] Comment:Diabetes: >=200 mg/d L plus symptoms Blood Urea Nitrogen 31(H) 8 - 18 mg/dL [facility] Creatinine 1.21(H) 0.70 - 1.20 mg/dL [facility] Sodium 132(L) 135 - 145 mmol/L [facility] Potassium 3.0(Criti edy) 3.5 - 5.0 mmol/L [facility] Comment: Called by: richard, Read back by: qamar ren, Date/Time:06/15/23 15:18. Please note: ??Patients with WBC >100,000 may have falsely elevated Potassium levels. ??For accurate Potassium quantification in these patients send serum separator tube (gold top) for subsequent determinations. ??Contact the Clinical Chemistry Laboratory if there are any questions. Chloride 89(L) 98 - 107 mmol/L [facility] Carbon Dioxide 32(H) 22 - 31 mmol/L [facility] Anion Gap 11 5 - 15 mmol/L [facility] Calcium 9.6 8.5 - 10.5 mg/dL [facility] Est Glomerular Filtration Rate 53(L) >=60 mL/min/1. 73 m?? [facility] [...] Lab Eufemia Copeland MD CHEMISTRY ORDERABL ES [facility] [place] [address] * Heparin (unfractionated) Level (06/15/2023 2:29 PM EDT) UF Heparin 0.93 IU/mL [facility] Comment: [...] MD HEMATOLOGY ORDERABLE S Performing Organization Address City/[facility]/ZIP Co de Phone Number [facility] [place] [address] * EKG 12 Lead (06/15/2023 10:50 AM EDT) Ventricular rate 55 BPM MUSE SYSTEM Atrial Rate 55 BPM MUSE SYSTEM P-R Interval 184 ms MUSE SYSTEM QRS Duration 96 ms MUSE SYSTEM Q-T Interval 590 ms MUSE SYSTEM QTC Calculated (Bezet) 565 ms MUSE SYSTEM Calculated P [place] 54 degrees MUSE SYSTEM Calculated R [place] 54 degrees MUSE SYSTEM Calculated T [place] 13 degrees MUSE SYSTEM INTERPRETATION Sinus bradycardia with sinus arrhythmia Marked ST abnormality, possible inferior subendocardial injury Long QT interval Abnormal ECG When compared with ECG of 15-JUN-2023 02:17, Nonspecific T wave abnormality has replaced inverted T waves in Lateral leads Confirmed by Kai Haider ([id number]) on 06/16/2023 3:52:04 PM MUSE SYSTEM 06/15/2023 10:5 0 AM EDT 06/16/2023 3:52 PM EDT Terrence Keating MD ECG ORDERABLES Performing Organization Address City/[facility]/ZIP Co de Phone Number MUSE SYSTEM * (ABNORMAL) Basic Metabolic Panel (non-fasting) (06/15/2023 8:18 AM EDT) Glucose 113 65 - 199 mg/dL [facility] Comment:Diabetes: >=200 mg/d L plus symptoms Blood Urea Nitrogen 29(H) 8 - 18 mg/dL [facility] Creatinine 1.22(H) 0.70 - 1.20 mg/dL [facility] Sodium 134(L) 135 - 145 mmol/L [facility] Potassium 2.5(Criti edy) 3.5 - 5.0 mmol/L [facility] Comment: Called by: cheryl, Read back by: eamon mckeon, Date/Time:06/15/23 09:34. Please note: ??Patients with WBC >100,000 may have falsely elevated Potassium levels. ??For accurate Potassium quantification in these patients send serum separator tube (gold top) for subsequent determinations. ??Contact the Clinical Chemistry Laboratory if there are any questions. Chloride 89(L) 98 - 107 mmol/L [facility] Carbon Dioxide 30 22 - 31 mmol/L [facility] Anion Gap 15 5 - 15 mmol/L [facility] Calcium 10.0 8.5 - 10.5 mg/dL [facility] Est Glomerular Filtration Rate 53(L) >=60 mL/min/1. 73 m?? [facility] [...] MD CHEMISTRY ORDERABL ES Performing Organization Address City/[facility]/ZIP Co de Phone Number [facility] [place] [address] * Heparin (unfractionated) Level (06/15/2023 8:18 AM EDT) Pathologist [facility] UF Heparin 0.70 IU/mL [facility] Comment: [...] MD HEMATOLOGY ORDERABLE S Performing Organization Address City/[facility]/ZIP Co de Phone Number [facility] [place] [address] * (ABNORMAL) Troponin (06/15/2023 8:18 AM EDT) [facility] Troponin-T, High Sensitivity 33(H) <=14 ng/L [facility] [...] can be found in the [facility] Test Catalog Troponin - [facility] Test Catalog Reference: Fourth Crawford Definition of Myocardial Infarction. Journal of the [employer] 2018;72:3651-4207 Blood 06/15/2023 8:18 AM EDT 06/15/2023 8:34 AM EDT Narrative Resulting Agency Comment Spec In Lab Terrence Keating MD CHEMISTRY ORDERABLES [facility] [place] [address] * Differential, Automated (06/15/2023 4:28 AM EDT) Neutrophil % 48.0 % [facility] Neutrophil Absolute 3.20 1.70 - 6.10 x10(3)/[facility] Lymph % 35.8 % [facility] Lymphocytes Abs 2.4 0.9 - 3.2 x10(3)/[facility]ORATORY Monocyte % 11.4 % [facility] Monocyte Abs 0.8 0.3 - 0.9 x10(3)/[facility]ORATORY Eos % 3.7 % [facility] Eosinophils Abs 0.2 0.0 - 0.4 x10(3)/[facility]ORY Basophil % 1.0 % [facility] Baso Absolute 0.1 0.0 - 0.1 x10(3)/[facility] LABORATORY Immature Gran % 0.10 % [facility] Comment: Immature granulocytes(IG's)percentage and absolute count will include metamyelocytes, myelocytes, and promyelocytes. Blood smears from CBCs yielding IG's will be scanned manually for concordance. If this scan disagrees with the automated IG or if promyelocytes are noted, a manual differential will be performed. Immature Gran Absolute 0.01 0.00 - 0.04 x10(3)/mcL [facility] Blood 06/15/2023 4:28 AM EDT 06/15/2023 4:37 AM EDT Narrative Resulting Agency Comment Spec In Lab Terrence Keating MD HEMATOLOGY ORDERABLE S [facility] [place] [address] * (ABNORMAL) Hemogram (06/15/2023 4:28 AM EDT) White Blood Cell 6.7 4.0 - 9.5 x10(3)/ L [facility] Red Blood Cell 5.09 4.00 - 5.21 x10(6)/mc L [facility] Hemoglobin 16.1(H) 11.7 - 15.5 g/dL [facility] Hematocrit 48.2(H) 35.7 - 45.8 % [facility] Mean Cell Volume 94.7(H) 82.6 - 94.4 fL [facility] Mean Cell Hemoglobin 31.6 27.1 - 32.0 pg [facility] Mean Cell Hemoglobin Concentration 33.4 31.7 - 35.0 g/dL [facility] Platelet 253 145 - 357 x10(3)/mc L [facility] RDW Standard Deviation 45.5 37.0 - 46.0 fL [facility] RDW coefficient of variation 13.0 11.5 - 14.1 % [facility] Mean Platelet Volume 10.6 7.6 - 12.9 fL [facility] NRBC% auto 0.0 % [facility] NRBC Absolute 0.000 0.000 - 0.000 x10(3)/mc L [facility] Blood 06/15/2023 4:28 AM EDT 06/15/2023 4:37 AM EDT Narrative Resulting Agency Comment Spec In Lab Terrence Keating MD HEMATOLOGY ORDERABLE S Performing Organization Address City/[facility]/ZIP Co de Phone Number [facility] [place] [address] * (ABNORMAL) Troponin (06/15/2023 4:28 AM EDT) Troponin-T, High Sensitivity 34(H) <=14 ng/L [facility] [...] can be found in the [facility] Test Catalog Troponin - [facility] Test Catalog Reference: Fourth Crawford Definition of Myocardial Infarction. Journal of the [employer] 2018;72:9187-8228 Blood 06/15/2023 4:28 AM EDT 06/15/2023 4:37 AM EDT Narrative Resulting Agency Comment Spec In Lab Terrence Keating MD CHEMISTRY ORDERABLES [facility] [place] [address] * (ABNORMAL) Prothrombin Time (06/15/2023 4:28 AM EDT) Prothrombin Time 12.7(H) 9.4 - 12.5 sec [facility] International Normalization Ratio 1.1 [facility] Comment: An INR <2.0 [...] MD HEMATOLOGY ORDERABLE S Performing Organization Address [facility]/[place] Co de Phone Number [facility] [place] [address] * (ABNORMAL) Hepatic Function Panel (06/15/2023 4:28 AM EDT) Pathologist [facility] Protein, Total 7.5 6.1 - 8.0 g/dL [facility] Albumin 4.3 3.2 - 5.2 g/dL [facility] Aspartate Aminotransferase 32(H) 0 - 30 unit/L [facility] Alanine Aminotransferase 26 0 - 30 unit/L [facility] Alkaline Phosphatase 70 35 - 105 unit/L [facility] Bilirubin, Total 0.8 0.2 - 1.3 mg/dL [facility] Bilirubin, Direct 0.1 0.0 - 0.3 mg/dL [facility] Blood 06/15/2023 4:28 AM EDT 06/15/2023 4:37 AM EDT Narrative Resulting Agency Comment Spec In Lab Terrence Keating MD CHEMISTRY ORDERABLES Performing Organization Address [facility]/[place] Co de Phone Number [facility] [place] [address] * (ABNORMAL) pro-Brain Natriuretic Peptide (06/15/2023 4:28 AM EDT) NT-proBNP 1,953(H) <=124 pg/mL [facility] Blood 06/15/2023 4:28 AM EDT 06/15/2023 4:37 AM EDT Narrative Resulting Agency Comment Spec In Lab Trerence Keating MD CHEMISTRY ORDERABLES Performing Organization Address [facility]/[place] Co de Phone Number [facility] [place] [address] * TSH (06/15/2023 4:28 AM EDT) Thyroid Stimulating Hormone 2.98 0.27 - 4.20 mcIU/mL [facility] Comment: Reference Interval (mcIU/mL): Females: ??First Trimester: 0.23-3.88 ??Second Trimester: 0.22-3.90 ??Third Trimester: 0.44-4.66 Blood 06/15/2023 4:28 AM EDT 06/15/2023 4:37 AM EDT Narrative Resulting Agency Comment Spec In Lab Terrence Keating MD CHEMISTRY ORDERABLES Performing Organization Address [facility]/[place] Co de Phone Number [facility] [place] [address] * Phosphorus (06/15/2023 4:28 AM EDT) Phosphorus 4.4 2.5 - 4.5 mg/dL [facility] Blood 06/15/2023 4:28 AM EDT 06/15/2023 4:37 AM EDT Narrative Resulting Agency Comment Spec In Lab Terrence Keating MD CHEMISTRY ORDERABLES Performing Organization Address City/[facility]/ZIP Co de Phone Number [facility] [place] [address] * (ABNORMAL) Magnesium (06/15/2023 4:28 AM EDT) [facility] Magnesium 1.22(H) 0.69 - 1.07 mmol/L [facility] Blood 06/15/2023 4:28 AM EDT 06/15/2023 4:37 AM EDT Narrative Resulting Agency Comment Spec In Lab Terrence Keating MD CHEMISTRY ORDERABLES Performing Organization Address [facility]/[place] Co de Phone Number [facility] [place] [address] * Calcium (06/15/2023 4:28 AM EDT) [facility] Calcium 9.7 8.5 - 10.5 mg/dL [facility] Blood 06/15/2023 4:28 AM EDT 06/15/2023 4:37 AM EDT Narrative Resulting Agency Comment Spec In Lab Terrence Keating MD CHEMISTRY ORDERABLES Performing Organization Address [facility]/[place] Co de Phone Number [facility] [place] [address] * (ABNORMAL) Basic Metabolic Panel (non-fasting) (06/15/2023 4:28 AM EDT) [facility] Glucose 112 65 - 199 mg/dL [facility] Comment:Diabetes: >=200 mg/d L plus symptoms Blood Urea Nitrogen 30(H) 8 - 18 mg/dL [facility] Creatinine 1.24(H) 0.70 - 1.20 mg/dL [facility] Sodium 134(L) 135 - 145 mmol/L [facility] Potassium 2.7(Criti edy) 3.5 - 5.0 mmol/L [facility] Comment: Called by: , Read back by: Olive Hernandez, Date/Time:06/15/23 05:16. Please note: ??Patients with WBC >100,000 may have falsely elevated Potassium levels. ??For accurate Potassium quantification in these patients send serum separator tube (gold top) for subsequent determinations. ??Contact the Clinical Chemistry Laboratory if there are any questions. Chloride 90(L) 98 - 107 mmol/L [facility] Carbon Dioxide 28 22 - 31 mmol/L [facility] Anion Gap 16(H) 5 - 15 mmol/L [facility] Calcium 9.7 8.5 - 10.5 mg/dL [facility] LABORATORY Est Glomerular Filtration Rate 52(L) >=60 mL/min/1. 73 m?? [facility] [...] In Lab Terrence Keating MD CHEMISTRY ORDERABLES [facility] [place] [address] * EKG 12 Lead (06/15/2023 2:17 AM EDT) Ventricular rate 57 BPM MUSE SYSTEM Atrial Rate 57 BPM MUSE SYSTEM P-R Interval 200 ms MUSE SYSTEM QRS Duration 94 ms MUSE SYSTEM Q-T Interval 606 ms MUSE SYSTEM QTC Calculated (Bezet) 591 ms MUSE SYSTEM Calculated P [place] 66 degrees MUSE SYSTEM Calculated R [place] 74 degrees MUSE SYSTEM Calculated T [place] -33 degrees MUSE SYSTEM INTERPRETATION Sinus bradycardia Possible Lateral infarct (cited on or before 17-APR-2023) Marked ST abnormality, possible inferior subendocardial injury Prolonged QTc Abnormal ECG When compared with ECG of 20-APR-2023 10:23, Nonspecific T wave changes QT has lengthened Confirmed by fellow MD Hansa, Sindhu ([id number]) on 06/15/2023 4:36:19 PM Confirmed by MD Angelo Danette ([id number]) on 06/15/2023 4:51:21 PM MUSE SYSTEM 06/15/2023 [...] on Wed07/03/23 at 0900, Until Discontinued, Routine Given 07/09/2023 [...] on Wed06/20/23 at 1630, Last dose on 06/21/23 at [...] Units/hr (0-100 mL/hr), Intravenous, CONTINUOUS, Starting on 06/22/23 at 2230, Until Aura 06/24/23 at 2020, [...] 40 mEq, Oral, ONCE, 1 dose, On 06/25/23 at 0815, potassium chloride ER particle/crystal tablets [...] 40 mEq, Oral, ONCE, 1 dose, On Wed07/06/23 at 0500, potassium chloride ER particle/crystal tablets [...] 40 mg, Oral, ONCE, 1 dose, On Wed07/04/23 at 0915, Routine Given 07/04/2023 8:48 AM [...] 0853 (Given - Provider: Heidy Paris RN)1332 ([facility] Hold - Provider: Admin Adt - Reason: Transfer to a Procedural area)1548 ([facility] Unhold - Provider: Admin Adt) 0856 (Given - Provider: Heidy Paris, ERWIN) 0931 (Given - Provider: Heidy Paris RN) gabapentin (Neurontin) capsule 600 mg 600 mg, Oral, NIGHTLY, First dose on Wed06/15/23 at 0200, Until Discontinued, Routine 1332 ([facility] Hold - Provider: Admin Adt - Reason: Transfer to a Procedural area)1548 ([facility] Unhold - Provider: Admin Adt)2136 [...] Heidy Paris RN - Reason: Patient/family refused)1332 ([facility] Hold - Provider: Admin Adt - Reason: Transfer to a Procedural area)1548 ([facility] Unhold - Provider: Admin Adt) 1000 (Not Given - Provider: Heidy Paris RN - Reason: Patient/family refused) 1000 (Not Given - Provider: Heidy Paris RN - Reason: Patient/family refused) melatonin tablet 6 mg 6 mg, Oral, NIGHTLY, First dose on Wed06/15/23 at 0200, Until Discontinued 1332 ([facility] Hold - Provider: Admin Adt - Reason: Transfer to a Procedural area)1548 ([facility] Unhold - Provider: Admin Adt)2136 [...] Heidy Paris RN - Reason: Patient/family refused)1332 ([facility] Hold - Provider: Admin [...] 0853 (Given - Provider: Heidy Paris RN)1332 ([facility] Hold - Provider: Admin Adt - Reason: Transfer to a Procedural area)1548 ([facility] Unhold - Provider: Admin Adt)2135 (Given - Provider: Lorena Torres, ERWIN) 0856 (Given - Provider: Heidy Paris RN)2116 (Given - Provider: Machelle Busch RN) 0938 (Given - Provider: Heidy Paris RN) rimegepant (Nurtec ODT) Tablet, Rapid Dissolve 75 mg 75 mg, Oral, EVERY 48 HOURS, First dose (after last modification) on Wed06/23/23 at 1000, Until Discontinued 1000 (Not Given - Provider: Heidy Paris RN - Reason: Patient/family refused)1332 ([facility] Hold - Provider: Admin Adt - Reason: Transfer to a Procedural area)1548 ([facility] Unhold - Provider: Admin Adt) 1000 (Not Given - Provider: Heidy Paris RN - Reason: Patient/family refused) rOPINIRole (Requip) tablet 2 mg 2 mg, Oral, 2 TIMES DAILY, First dose on Wed06/15/23 at 0245, Until Discontinued, Routine 0853 (Given - Provider: Heidy Paris RN)1332 ([facility] Hold - Provider: Admin Adt - Reason: Transfer to a Procedural area)1548 ([facility] Unhold - Provider: Admin Adt)213 (Given - Provider: Lorena Torres, ERWIN) 0856 (Given - Provider: Heidy Paris RN)2115 (Given - Provider: Machelle Busch RN) 0931 (Given - Provider: Heidy Paris, ERWIN) senna-docusate (Pericolace) 8.6-50 mg per tablet 2 tablet 2 tablet, Oral, 2 TIMES DAILY, First dose on Wed06/17/23 at 1100, Until Discontinued, Routine 0900 (Not Given - Provider: Heidy Paris RN - Reason: Patient/family refused)1332 ([facility] Hold - Provider: Admin Adt - Reason: Transfer to a Procedural area)1548 ([facility] Unhold - Provider: Admin Adt)2100 (Not Given - Provider: Lorena Torres, ERWIN - Reason: Contraindicated) 0900 (Not Given - [...] - Reason: Transfer to a Procedural area)1548 ([facility] Unhold - Provider: Admin Adt)2100 [...] - Reason: Transfer to a Procedural area)1548 ([facility] Unhold - Provider: Admin [...] - Reason: Transfer to a Procedural area)1548 ([facility] Unhold - Provider: Admin Adt) albuteroL (Proventil, Ventolin) (2.5 mg/3 mL) (0.083 %) nebulizer solution 2.5 mg 2.5 mg, Nebulization, EVERY 4 HOURS PRN, Starting on Wed07/04/23 at 0857, Until Wed07/09/23 at 1844, Wheezing, Routine 1332 ([facility] Hold - Provider: Admin Adt - Reason: Transfer to a Procedural area)1548 ([facility] Unhold - Provider: Admin Adt) lidocaine (Xylocaine) 1% (10 mg/mL) injection 3 mg 3 mg (0.3 mL), Subcutaneous, ONCE PRN, 1 dose, Starting on Wed06/15/23 at 0146, Until Wed07/09/23 at 1844, for discomfort with PIV insertion, Routine 1332 ([facility] Hold - Provider: Admin Adt - Reason: Transfer to a Procedural area)1548 ([facility] Unhold - Provider: Admin Adt) loratadine (Claritin) tablet 10 mg 10 mg, Oral, DAILY PRN, Starting on Wed06/15/23 at 0146, Until Wed07/09/23 at 1844, allergies, Routine 1332 ([facility] Hold - Provider: Admin Adt - Reason: Transfer to a Procedural area)1548 ([facility] Unhold - Provider: Admin Adt) nitroGLYcerin (Nitrostat) disintegrating tablet 0.4 mg 0.4 mg, Sublingual, EVERY 5 MIN PRN, Starting on Wed06/22/23 at 1119, Until Wed07/09/23 at 1844, Chest pain, SL nitroglycerin may be repeated every 5 minutes as needed up to 3 doses, Routine 1332 ([facility] Hold - Provider: Admin Adt - Reason: Transfer to a Procedural area)1548 ([facility] Unhold - Provider: Admin Adt) 0951 (Given - Provider: Heidy Paris RN) ondansetron (pf) (Zofran) (2 mg/mL) injection 4 mg 4 mg, Intravenous, EVERY 8 HOURS PRN, Starting on Wed06/29/23 at 1449, Until Wed07/09/23 at 1844, Nausea 1332 ([facility] Hold - Provider: Admin Adt - Reason: Transfer to a Procedural area)1548 ([facility] Unhold - Provider: Admin Adt)2137 [...] all sources in 24 hours., Routine 1332 ([facility] Hold - Provider: Admin Adt - Reason: Transfer to a Procedural area)1548 ([facility] Unhold - Provider: Admin Adt)2137 (Given - Provider: Lorena Torres RN) 0855 (Given - Provider: Heidy Paris RN)2120 (Given - Provider: Machelle Busch RN) simethicone (Gas-X Chew) 80 mg chewable tablet 80 mg 80 mg, Oral, EVERY 6 HOURS PRN, Starting on Wed06/20/23 at 0941, Until Wed07/09/23 at 1844, Cramping, Routine 1332 ([facility] Hold - Provider: Admin Adt - Reason: Transfer to a Procedural area)1548 ([facility] Unhold - Provider: Admin [...] provided on this medication record., Routine 1332 ([facility] Hold - Provider: Admin Adt - Reason: Transfer to a Procedural area)1548 ([facility] Unhold - Provider: Admin [...] PROTOCOL, Starting on 06/28/23 at 1620, Until 07/09/23 at 1409, Per Protocol, START ADJUSTMENT SCHEDULE [...] Routine documented in this encounter Care Teams Linoleum Mechanic Relationship Specialty Start Date End Date Polo Pearce PA [address] [place] [address] PCP - General Internal Medicine 06/09/21 documented as of this encounter
--- OUTSIDE RECORDS SUMMARY | 2023-10-22 00:38 | XMS_ITS | Encounter Summary ---
Author Organization [facility] [place] [address] Care Team Providers Care Media Services Coordinator Name Role Phone Polo Pearce Primary Care Provider [phone] Reason for Referral * Consultation (Routine) - Closed Specialty Diagnoses / Procedures Referred By Jayant harris Referred To Contact Gastroenterology Diagnoses Chronic abdominal pain chronic abd pain after meals Porsha San MD [facility] [place] [address] [facility] [address] [address] Referral ID Status Reason Start Date Expiration Date V isits Requested Visits Authorized [id number] Closed Consult, Test & Treat 07/08/2023 07/07/2024 1 1 Encounter Details Date Type Department Care Team (Late st Contact Info) Description 07/08/2023 Orders Only [place] [phone] Porsha San MD [facility] [place] [address] Chronic abdominal pain Social History [...] PM EDT Office Visit Cardiology at [address] [phone] Jaspreet Kinsey MD [facility] [place] [address] 10/28/2023 9:00 AM EDT Office Visit [place] [address] 10/29/2023 10:00 AM EDT Clinical Support [place] [address] 10/29/2023 10:15 AM EDT Procedure visit [place] [address] 11/01/2023 5:00 PM EDT Office Visit Gastroenterology at [place] [phone] Selene Browning, PhD [facility] [place] [address] 11/22/2023 4:40 PM EDT Office Visit Cardiology at [address] [phone] Porsha Mcdaniels MD [facility] [place] [address] 12/13/2023 10:00 AM EDT Clinical Support [place] [phone] [facility] [place] [address] Scheduled Referrals Name Type Priority Associated Diagnoses Order Schedule Referral to Gastroenterology Outpatient Referral Routine Chronic abdominal pain Ordered: 07/08/2023 documented as of this encounter Visit Diagnoses Diagnosis Chronic abdominal pain Abdominal pain, unspecified site documented in this encounter Care Teams Media Services Coordinator Relationship Specialty Start Date End Date Polo Pearce PA [address] [place] [address] PCP - General Internal Medicine 06/09/21 documented as of this encounter
--- OUTSIDE RECORDS SUMMARY | 2023-10-22 00:40 | XMS_ITS | Encounter Summary ---
[place] [address] Care Team Providers Care Drafter Refrigeration Name Role Phone Polo Pearce Primary Care Provider [phone] Reason for Referral * Diagnostic Test (Routine) - Closed Specialty Diagnoses / Procedures Referred By Jayant harris Referred To Contact Diagnoses Mesenteric ischemia Procedures Duplex Study Visceral Arteries, Comp Mamie Marx APRN [facility] [place] [address] [facility] [address] [place] [phone] Referral ID Status Reason Start Date Expiration Date V isits Requested Visits Authorized [id number] Closed Specialty Service Requested 06/28/2023 06/27/2024 1 1 Encounter Details Date Type Department Care Team (Late st Contact Info) Description 06/28/2023 Orders Only Vascular Surgery at [address] [phone] Mamie Marx APRN [facility] [place] [address] Mesenteric ischemia Social History Tobacco Use Types Packs/Day Years Used Date Smoking Tobacco: Never Smokeless Tobacco: Never Alcohol Use Standard Drinks/Week Comments Never 0 (1 standard drink = 0.6 oz pur e alcohol) [facility] Utilities Answer Date Recorded In [...] PM EDT Office Visit Cardiology at [address] [place] [phone] Jaspreet Kinsey MD [facility] [place] [address] 10/28/2023 9:00 AM EDT Office Visit [place] [address] 10/29/2023 10:00 AM EDT Clinical Support [place] [address] 10/29/2023 10:15 AM EDT Procedure visit [place] [address] 11/01/2023 5:00 PM EDT Office Visit [place] [phone] Selene Browning, PhD [facility] [place] [address] 11/22/2023 4:40 PM EDT Office Visit Cardiology at [address] [phone] Porsha Mcdaniels MD [facility] [place] [address] 12/13/2023 10:00 AM EDT Clinical Support [place] [phone] Lucero Romero, ALVA [facility] [place] [address] documented as of this encounter Results * Duplex Study Visceral Arteries, Comp (08/03/2023 8:36 AM EDT) VB Text Report Department: Vascular Surgery Lab Patient: [id number] (ROHAN, MELINDA) CPT: 22290 Referring Physician: MAMIE MARX ?? Phone: Indications: S/p SMA stenting (07/01) one month f/u, ? patency Findings: Unilateral ? Waveform ? PSV cm/s ??EDV cm/s ??Patent ?? Dary Visceral Aorta ? 71 ?14 ? Celiac Artery, Proximal ??Camas-Biphasic ? 100 ?22 ? Celiac Artery, Mid ? Camas-Biphasic ?99 ?19 ? Celiac Artery, Distal ?Camas-Biphasic ?94 ?18 ? Sup Mes Artery Proximal [...] within mesenteric artery stents may differ from dry creek arteries, with thresholds for diagnosis of significant stenosis likely being somewhat higher in stented arteries than dry creek.% To date, there is no evidence based consensus of stent velocity criteria. Therefore, the current interpretation is based on dry creek artery thresholds. Previous Celiac/Mesenteric Studies: Date ? [...] intestine documented in this encounter Care Teams Drafter Refrigeration Relationship Specialty Start Date End Date Polo Pearce PA [address] [place] [address] PCP - General Internal Medicine 06/09/21 documented as of this encounter
--- OUTSIDE RECORDS SUMMARY | 2023-10-22 00:40 | XMS_ITS | Encounter Summary ---
Author Organization [facility] Address [facility] [place] [address] Care Team Providers Care Cell Tender Name Role Phone Polo Pearce Primary Care Provider [phone] Encounter Details Date Type Department Care Team (Late st Contact Info) Description 05/28/2023 Telephone Cardiology at [address] [place] [address] Jaspreet Kinsey MD [facility] [place] [address] Social History Tobacco Use Types Packs/Day Years Used Date Smoking Tobacco: Never Smokeless Tobacco: Never Alcohol Use Standard Drinks/Week Comments Never 0 (1 standard drink = 0.6 oz pur e alcohol) [facility] Utilities Answer Date Recorded In the past 12 months has [employer], gas, oil, or water [employer] threatened to shut off services in your [...] in a nursing home (including now)? No 04/19/2023 DH IPV [...] has gone up. Please call her @ [phone] * Telephone Encounter - Nilda Mayes, RN - 06/04/2023 9:41 AM EDT Next office visit is scheduled Date Visit Type Department Provider 09/22/2023 3:00 PM FOLLOW UP VISIT Cardiology at [facility] Arrive at: [facility] [address] Kinsey * Telephone Encounter - Aide Glass - 05/28/2023 10:53 AM EDT Patient had labs done recently. She would like to know what Dr Kinsey thinks about them and what if anything she should be doing. Please call her @ [phone] . documented in this encounter Plan of Treatment Upcoming Encounters Date Type Department Care Team (Late st Contact Info) Description 10/26/2023 4:00 PM EDT Office Visit Cardiology at [address] [phone] Jaspreet Kinsey MD [facility] [place] [address] 10/28/2023 9:00 AM EDT Office [place] [address] 10/29/2023 10:00 AM EDT Clinical [place] [address] 10/29/2023 10:15 AM EDT Procedure [place] [address] 11/01/2023 5:00 PM EDT Office [place] [phone] Selene Browning, PhD [facility] [place] [address] 11/22/2023 4:40 PM EDT Office Visit Cardiology at [address] [phone] Porsha Mcdaniels MD [facility] [place] [address] 12/13/2023 10:00 AM EDT Clinical [place] [phone] [facility] [place] [address] documented as of this encounter Visit Diagnoses Not on filedocumented in this encounter Care Teams Cell Tender Relationship Specialty Start Date End Date Polo Pearce PA [address] [place] [address] PCP - General Internal Medicine 06/09/21 documented as of this encounter
--- OUTSIDE RECORDS SUMMARY | 2023-10-22 00:40 | XMS_ITS | Encounter Summary ---
Author Organization [facility] Address [facility] [place] [address] Care Team Providers Care Estate Planning Director Name Role Phone Polo Pearce Primary Care Provider [phone] Reason for Visit * Reason Comments Cardiomyopathy Encounter Details Date Type Department Care Team (Late st Contact Info) Description 05/10/2023 2:40 PM EST Office Visit Cardiology at [address] [place] [address] Jaspreet Kinsey MD [facility] [place] [address] Heart failure with preserved ejection fraction, unspecified HF chronicity (Primary Dx); SVT (supraventricular tachycardia) Social History Tobacco Use Types Packs/Day Years Used Date Smoking Tobacco: Never Smokeless Tobacco: Never Alcohol Use Standard Drinks/Week Comments Never 0 (1 standard drink = 0.6 oz pur e alcohol) [facility] Utilities Answer Date Recorded In the past 12 months has [employer] electric, gas, oil, or water company threatened [...] Oral, DAILY fluticasone propionate (FLONASE) 50 mcg/actuation [place], Suspension 1 spray, Each Nare, PRN gabapentin [...] preserved ejection fraction 05/2021: subacute, presented to [facility] with RUQ pain, weight [...] consider referral to the clare Mcdaniels of [facility] expertise IN the meantime, increase [...] PM EDT Office Visit Cardiology at [address] [address] Jaspreet Kinsey MD [facility] [place] [address] 10/28/2023 9:00 AM EDT Office [place] [address] 10/29/2023 10:00 AM EDT Clinical [place] [address] 10/29/2023 10:15 AM EDT Procedure [place] [address] 11/01/2023 5:00 PM EDT Office Visit [place] [phone] Selene Browning, PhD [facility] [place] [address] 11/22/2023 4:40 PM EDT Office Visit Cardiology at [address] [address] Porsha Mcdaniels MD [facility] [place] [address] 12/13/2023 10:00 AM EDT Clinical Support [place] [address] Lucero Romero, ALVA [facility] [place] [address] documented as of this encounter Results * Streptococcal Antibody Panel (08/25/2023 11:28 AM EDT) Pathologist [facility] Aso Titer (JULY) 25 0 - 530 IU/mL [facility] Comment: Test Performed by: [place] [address] Junior Web Developer: Nellie Haney Ph.D.; CLIA# [id number] Dnase B Ab (JULY) 146 0 - 300 unit/mL [facility] Comment: Test Performed by: [place] [address] Junior Web Developer: Nellie Haney Ph.D.; CLIA# [id number] Blood 08/25/2023 11:2 8 AM EDT 08/25/2023 1:02 PM EDT Narrative Resulting Agency Comment Spec In Lab Jaspreet Kinsey MD LAB SEND OUT ORDERAB LES Performing Organization Address City/[facility]/ZIP Co de Phone Number [facility] [place] [address] * Lyme IgG & IgM Antibody (08/25/2023 11:28 AM EDT) Pathologist [facility] Lyme Antibody Negative Negative [facility] Lyme Ab Comment Negative result does not exclude possibility of infection. [facility] Comment: Please note that as of 07/14/2022 that this testing is performed by the Special Chemistry Laboratory at [facility]. This change in testing location is associated with a change in testing methodology. Blood 08/25/2023 11:2 8 AM EDT 08/26/2023 7:26 AM EDT Narrative Resulting Agency Comment Spec In Lab Jaspreet Kinsey MD IMMUNOLOGY ORDERABLE S Performing Organization Address City/[facility]/ZIP Co de Phone Number [facility] [place] [address] * Ferritin (08/25/2023 11:28 AM EDT) Ferritin 110 11 - 328 ng/mL [facility] Comment: Please note that as of 02/10/2023, the reference intervals for Ferritin have been updated. Blood 08/25/2023 11:2 8 AM EDT 08/25/2023 11:37 AM EDT Narrative Resulting Agency Comment Spec In Lab Jaspreet Kinsey MD CHEMISTRY ORDERABLES Performing Organization Address City/[facility]/ZIP Co de Phone Number [facility] [place] [address] * Iron and TIBC (08/25/2023 11:28 AM EDT) Pathologist [facility] Iron 113 30 - 150 mcg/dL [facility] TIBC 338 250 - 450 mcg/dL [facility] Iron Saturation 33 20 - 50 % [facility] Blood 08/25/2023 11:2 8 AM EDT 08/25/2023 11:36 AM EDT Narrative Resulting Agency Comment Spec In Lab Jaspreet Kinsey MD CHEMISTRY ORDERABLES Performing Organization Address City/[facility]/ZIP Co de Phone Number [facility] [place] [address] * (ABNORMAL) Free Light Chains, Serum (08/25/2023 11:28 AM EDT) Halfway Free Light Chain 3.09(H) 0.72 - 2.75 mg/dL [facility] Lambda Free Light Chain 1.65 0.57 - 2.15 mg/dL [facility] Halfway/Lambda FLC Ratio 1.8727 0.4000 - 2.5800 [facility] Blood 08/25/2023 11:2 8 AM EDT 08/25/2023 11:36 AM EDT Narrative Resulting Agency Comment Spec In Lab Jaspreet Kinsey MD CHEMISTRY ORDERABLES Performing Organization Address [facility]/ZIP Co de Phone Number [facility] [place] [address] * (ABNORMAL) Protein Electrophoresis, serum (08/25/2023 11:28 AM EDT) Pathologist [facility] Total Prot Electrophoresis 7.5 6.1 - 8.0 g/dL [facility] Albumin Electrophoresis 4.62 3.20 - 5.20 g/dL [facility] Alpha 1 Globulin 0.20 0.10 - 0.30 g/dL [facility] Alpha 2 Globulin 0.92(H) 0.40 - 0.90 g/dL [facility] Beta Globulin 0.89 0.50 - 1.00 g/dL [facility] Gamma Globulin 0.88 0.50 - 1.30 g/dL [facility] M1 Band None Detected None Detected [facility] Blood 08/25/2023 11:2 8 AM EDT 08/25/2023 11:37 AM EDT Narrative Resulting Agency Comment Spec In Lab Jaspreet Kinsey MD CHEMISTRY ORDERABLES Performing Organization Address [facility] Co de Phone Number [facility] [place] [address] * KATHRINE Antibody Screen (08/25/2023 11:28 AM EDT) Pathologist [facility] KATHRINE Ab Screen Negative Negative [facility] Comment: This antinuclear antibody (KATHRINE) screen is a qualitative test performed using a fluoroenzyme immunoassay on the Covarity 250 analyzer. This screen is designed to detect antibodies to U1RNP, SS-A/Ro, SS-B/La, centromere B, Scl-70, Dasia-1, and Sm(Alcantar) proteins in serum samples. Antibodies to other nuclear antibodies will not be detected with this assay. This KATHRINE screen is also performed in concert with a quantitative for IgG antibodies to dsDNA. dsDNA Ab 1.0 <=15.0 IU/mL [facility] Comment: <10 negative 10-15 equivocal >15 positive This dsDNA antibody result was generated using a fluoroenzyme immunoassay on the Ariesoa 250 analyzer. This quantitative test is designed to detect IgG antibodies directed against double stranded DNA in human serum. The presence of antibodies that recognize dsDNA is a highly specific marker for systemic lupus erythematosus. Please note that as of 12/30/2021 that this testing is performed by the Special Chemistry Laboratory at [facility]. This change in testing location is associated with a change is testing method and reference intervals. Please review the results of this test in association with the posted reference intervals. Blood 08/25/2023 11:2 8 AM EDT 08/26/2023 7:26 AM EDT Narrative Resulting Agency Comment Spec In Lab Jaspreet Kinsey MD LAB SEND OUT ORDERAB LES [facility] [place] [address] documented in this encounter Visit Diagnoses Diagnosis Heart failure with preserved ejection fraction, unspecified HF chronicity- Primary SVT (supraventricular tachycardia) Other specified cardiac dysrhythmias documented in this encounter Care Teams Estate Planning Director Relationship Specialty Start Date End Date Polo Pearce PA [address] [place] [address] PCP - General Internal Medicine 06/09/21 documented as of this encounter
--- OUTSIDE RECORDS SUMMARY | 2023-10-22 00:40 | XMS_ITS | Encounter Summary ---
Author Organization [facility] Address [facility] [place] [address] Care Team Providers Care Loom Control Chain Builder Name Role Phone Polo Pearce Primary Care Provider [phone] Encounter Details Date Type Department Care Team [...] PM EDT Office Visit Cardiology at [address] [phone] [facility] [address] 10/28/2023 9:00 AM EDT Office [place] [address] 10/29/2023 10:00 AM EDT Clinical [place] [address] 10/29/2023 10:15 AM EDT Procedure [place] [address] 11/01/2023 5:00 PM EDT Office Visit [place] [phone] Selene Browning, PhD [facility] [place] [address] 11/22/2023 4:40 PM EDT Office Visit Cardiology at [address] [phone] [facility] [address] 12/13/2023 10:00 AM EDT Clinical Support Gastroenterology at [facility] [place] [phone] [facility] [place] [address] documented as of this encounter Visit Diagnoses Not on filedocumented in this encounter Care Teams Loom Control Chain Builder Relationship Specialty Start Date End Date Polo Pearce PA [address] [place] [address] PCP - General Internal Medicine 06/09/21 documented as of this encounter
--- OUTSIDE RECORDS SUMMARY | 2023-10-22 00:40 | XMS_ITS | Encounter Summary ---
Author Organization [facility] Address [facility] [place] [address] Care Team Providers Care Poultry Pathologist Name Role Phone Polo Pearce Primary Care Provider [phone] Reason for Referral * Consultation (Routine) - Closed Specialty Diagnoses / Procedures Referred By Jayant harris Referred To Contact Cardiology Diagnoses Heart failure with preserved ejection fraction, unspecified HF chronicity [place]. thorough evaluation performed to date. Jaspreet Kinsey MD [facility] [address] Porsha Mcdaniels MD [facility] [place] [address] Referral ID Status Reason Start Date Expiration Date V isits Requested Visits Authorized [id number] Closed Consult, Test & Treat 06/09/2023 06/08/2024 1 1 Encounter Details Date Type Department Care Team (Late st Contact Info) Description 06/09/2023 Telephone Cardiology at [address] [place] [address] Jaspreet Kinsey MD [facility] [place] [address] Social History Tobacco Use Types Packs/Day Years Used Date Smoking Tobacco: Never Smokeless Tobacco: Never Alcohol Use Standard Drinks/Week Comments Never 0 (1 standard drink = 0.6 oz pur e alcohol) [facility] Utilities Answer Date Recorded In the past [...] Havejean pierreo placed referral to cardiology at [facility] for further evaluation of what is termed [...] PM EDT Office Visit Cardiology at [address] [phone] Jaspreet Kinsey MD [facility] [place] [address] 10/28/2023 9:00 AM EDT Office [place] [address] 10/29/2023 10:00 AM EDT Clinical Support [place] [address] 10/29/2023 10:15 AM EDT Procedure visit [place] [address] 11/01/2023 5:00 PM EDT Office Visit Gastroenterology at [address] Selene Browning, PhD [facility] [address] 11/22/2023 4:40 PM EDT Office Visit Cardiology at [address] Porsha Mcdaniels MD [facility] [place] [address] 12/13/2023 10:00 AM EDT Clinical Support [place] [address] Lucero Romero, [facility] [place] [address] Scheduled Referrals Name Type Priority Associated Diagnoses Orde r Schedule Referral to Cardiology Outpatient Referral Routine Heart failure with preserved ejection fraction, unspecified HF chronicity Ordered: 06/09/2023 documented as of this encounter Visit Diagnoses Diagnosis Heart failure with preserved ejection fraction, unspecified HF chronicity documented in this encounter Care Teams Poultry Pathologist Relationship Specialty Start Date End Date Polo Pearce PA [address] [place] [address] PCP - General Internal Medicine 06/09/21 documented as of this encounter
--- OUTSIDE RECORDS SUMMARY | 2023-10-22 00:40 | XMS_ITS | Encounter Summary ---
[place] [address] Care Team Providers Care Pickling Drum Operator Name Role Phone Polo Pearce Primary Care Provider [phone] Reason for Visit * Auth/Cert (Routine) Specialty Diagnoses / Procedures Referred By Jayant harris Referred To Contact Diagnoses NSTEMI (non-ST elevated myocardial infarction) NSTEMI Procedures ER Terrence Pantoja MD [facility] [place] [address] [facility] Referral ID Status Reason Start Date Expiration Date Visits Re quested Visits Authorized [id number] 1 1 Encounter Details Date Type Department Care Team (Late st Contact Info) Description 07/07/2023 1:00 PM EDT - 07/07/2023 2:00 PM EDT [place] [address] Lashonda Villa MD [facility] [place] [address] EGD WITH BIOPSY (WRVU 2.39) Social History Tobacco Use Types Packs/Day Years Used Date Smoking Tobacco: Never Smokeless Tobacco: Never Alcohol Use Standard Drinks/Week Comments Never 0 (1 standard drink = 0.6 oz pur e alcohol) [facility] Utilities Answer Date Recorded In the past 12 months has e electric, gas, oil, or water Pulselocker threatened to shut off services in your [...] Loida Roque Patient Age: 53 y.o. Language: Bulgarian Race: White Ethnicity: Not nor Admit date: 06/14/2023 Discharge date and time: 07/09/2023 3:31 PM Attending Physician: Terrence Keating MD Discharge Physician: Terrence Keating MD Follow-up Recommendations for Providers: Inpatient Provider Contact Information: For questions regarding this document or issues relating to this hospitalization on the Medical Service, please contact your inpatient physician through the [facility] Adzing And Boring Machine Feeder . Issues afterhours and on weekends will [...] who have questions please contact the health residential care officer that requested your imaging first. Electronically signed by: Wilton Cabrera MD, [facility] ([phone]), at 06/17/2023 5:[address] Abdomen & [...] who have questions please contact the health residential care officer that requested your imaging first. Chest One [...] who have questions please contact the health residential care officer that requested your imaging first. Abdomen Limited (Exam End: 06/28/2023 12:22 PM) Result Value WORKSTATION ID [id number] Narrative Abdominal (Signed Final 06/28/2023 02:08 pm) PATIENT INFO: ID #: [id number] : [birth year] (53 yrs)(F) Name: LOIDA Visit Date: 06/28/2023 12:20 pm ROHAN PERFORMED BY: Attending: Sigrid Owens MD Resident: Rafaela Huddleston MD Performed By: Deena Cabrera RDMS Referred By: AILYN IRVIN Location: [place] SERVICE(S) PROVIDED: UABDLIM - Abdominal Limited Survey Single [id number] Organ or Quadrant - [id number] INDICATIONS: RUQ pain, R/o Gall bladder colic, [...] who have questions, please contact the health residential care officer that requested your imaging first. Sigrid Owens, E Pyrotechnic Assembler Electronically Signed Final Report 06/28/2023 02:08 pm [...] anesthetic: 10 cc 1% lidocaine Heparin: Yes 94164 Units Protamine: No mg Antibiotics: Ancef Fluoro [...] We exchanged the sheath for a 7 Hong [place]er horse trekking guide steerable sheath over a stiff wire. A Glidewire and Kumpe catheter were used to selectively cannulate the superior mesenteric artery. Direct angiography of the superior mesenteric artery was performed, confirming the results of the nonselective aortography performed. The lesion was predilated with a 4 mm x 40 mm [place] balloon, and then a 6 mm [...] 07/03/2023 3:18 PM) Result Value WORKSTATION ID [id number] Narrative EXAMINATION: XR CHEST ONE VIEW CLINICAL [...] who have questions please contact the health residential care officer that requested your imaging first. Echocardiogram from [...] pain. The patient was recently admitted at [facility] from 04/16/23 to 04/19/2023 as a transfer from [facility] due to exertional chest pressure and [...] etiology, patient was accepted for transfer to [facility]. Brief Summary: Loida Roque is a 53 [...] with positive cardiac markers. Patient transferred to [facility] for further work-up and evaluation. On arrival, [...] Administered Date(s) Administered Moderna Covid-19 Monovalent 12Yr+ (Manufacturing Supervisor 100mcg) 03/06/2020, 04/03/2020 Discharge Medications: Your Medications [...] weight gain + increasing shortness of breath. [id number] minutes prior to a dose of torsemide). [...] appointments: During 8am-5pm Wednesday through Wednesday call [phone] to speak with a nurse in the cardiology clinic All other times call [phone] and ask to speak to the garment mender weight loss consultant. Return to work: One week Driving: No driving for 48 hours after catheterization. Follow up Appointments: PCP JOCY Franco [phone] 11:30am on July 19. Cardiology office will call you regarding your appointment with Dr. Kinsey. General Instructions None Future Appointments and Orders Future Appointments and Orders Future Appointments Provider Department Dept Phone 07/26/2023 3:20 PM Jaspreet Kinsey MD Cardiology at [place] Arrive at: [address] [phone] 07/29/2023 8:00 AM Porsha Mcdaniels MD Cardiology at [facility] Arrive at: Forward Air Controller/Air Officer Area [address] [phone] 08/03/2023 8:30 AM Eladio Boyer Vascular Lab at [facility] Arrive at: Forward Air Controller/Air Officer Area 3V [phone] 08/03/2023 9:30 AM Judith Butler APRN Vascular Surgery at [facility] Arrive at: Forward Air Controller/Air Officer Area 3V [phone] 09/02/2023 2:40 PM Jaspreet Kinsey MD Cardiology at [place] Arrive at: [address] [phone] Discharge References/Attachments None Greater than 30 minutes was spent on this discharge including documentation, [id number] time withthe patient, patient education, weight recorder, coordination with pharmacy and other patient [...] appointments: During 8am-5pm Wednesday through Wednesday call [phone] to speak with a nurse in the cardiology clinic All other times call [phone] and ask to speak to the garment mender weight loss consultant. Return to work: One week Driving: No driving for 48 hours after catheterization. Follow up Appointments: PCP JOCY Franco [phone] 11:30am on July 19. Cardiology office will [...] as needed. fluticasone propionate (FLONASE) 50 mcg/actuation [place], Suspension 1 spray by Each Nare route [...] 4pm, per the team. Please refer to: [facility] [address] [facility] [address] PHONE: [phone] FAX: [phone] *For RN RICARDO: 07/09/23 Nani Mendoza MSN-Ed, RN ACM Cardiac Research Nurse and Neuro/Neurocrit/ENT Nocturnist Physician. * Mary Castaneda RCP - 07/09/2023 4:37 [...] [facility] PROGRESS NOTE Page [phone] to reach a provider 28/09 Admit Date: [...] with positive cardiac markers. Patient transferred to [facility] for further work-up and evaluation. Presented with [...] prn. Diet: Daily Healthy Menu Choices/Cardiac diet ([facility]-Diet) DVT Prophylaxis: DOAC heparin gtt. 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 Patient transferred to [facility] for further work-up and evaluation. Presented with [...] Score: 24 PT: OT: PCP JOCY Franco [phone] Terrence Keating MD 07/07/2023 * Terrence Keating MD - 07/06/2023 11:00 AM EDT CV HOSPITALIST 2 - [facility] DAILY PROGRESS NOTE Page [phone] to reach a provider 28/09 Admit Date: [...] with positive cardiac markers. Patient transferred to [facility] for further work-up and evaluation. Presented with [...] hospital Diet: Daily Healthy Menu Choices/Cardiac diet ([facility]-Diet) NPO diet (Give Meds) DVT Prophylaxis: DOAC Code status: Attempt Cardiopulmonary Resuscitation - Inpatient Disposition: Discharge Location: AM-[facility] Basic Mobility Raw Score: 24 PT: OT: PCP JOCY Franco [phone] Terrence Keating MD 07/06/2023 * Ana Paula [...] [facility] PROGRESS NOTE Page [phone] to reach a provider 28/09 Admit Date: [...] with positive cardiac markers. Patient transferred to [facility] for further work-up and evaluation. Presented with [...] hospital Diet: Daily Healthy Menu Choices/Cardiac diet ([facility]-Diet) DVT Prophylaxis: DOAC Code status: Attempt Cardiopulmonary Resuscitation - Inpatient Disposition: Discharge Location: AM-PAC Basic Mobility Raw Score: 24 PT: OT: PCP JOCY Franco [phone] Terrence Keating MD 07/05/2023 * Lino Calles MD - 07/04/2023 9:09 AM EDT CV HOSPITALIST 2 - [facility] DAILY PROGRESS NOTE Page [phone] to reach a provider 28/09 Admit Date: [...] with positive cardiac markers. Patient transferred to [facility] for further work-up and evaluation. On arrival, [...] migraine Diet: Daily Healthy Menu Choices/Cardiac diet ([facility]-Diet) DVT Prophylaxis: DOAC Code status: Attempt Cardiopulmonary Resuscitation - Inpatient Disposition: Discharge Location: AM-PAC Basic Mobility Raw Score: 24 PT: OT: PCP JOCY Franco [phone] Lino Calles MD 07/04/2023 * Ana Paula [...] [facility] PROGRESS NOTE Page [phone] to reach a provider 28/09 Admit Date: [...] with positive cardiac markers. Patient transferred to [facility] for further work-up and evaluation. On arrival, [...] PRN Diet: Daily Healthy Menu Choices/Cardiac diet ([facility]-Diet) DVT Prophylaxis: DOAC Code status: Attempt Cardiopulmonary Resuscitation - Inpatient Disposition: Discharge Location: AM-PAC Basic Mobility Raw Score: 24 PT: OT: PCP JOCY Franco [phone] Lino Calles MD 07/03/2023 * Van Muse [...] [facility] PROGRESS NOTE Page [phone] to reach a provider 28/09 Admit Date: [...] with positive cardiac markers. Patient transferred to [facility] for further work-up and evaluation. On arrival, [...] PRN Diet: Daily Healthy Menu Choices/Cardiac diet ([facility]-Diet) DVT Prophylaxis: DOAC Code status: Attempt Cardiopulmonary Resuscitation - Inpatient Disposition: Discharge Location: AM-PAC Basic Mobility Raw Score: 24 PT: OT: PCP JOCY Franco [phone] Lino Calles MD 07/02/2023 * Jaspreet Griffith [facility] - 07/02/2023 6:35 AM EDT Respiratory [...] [facility] PROGRESS NOTE Page [phone] to reach a provider 28/09 Admit Date: [...] with positive cardiac markers. Patient transferred to [facility] for further work-up and evaluation. On arrival, [...] PRN Diet: Daily Healthy Menu Choices/Cardiac diet ([facility]-Diet) NPO diet (Give Meds) DVT Prophylaxis: DOAC Code status: Attempt Cardiopulmonary Resuscitation - Inpatient Disposition: Discharge Location: AM-PAC Basic Mobility Raw Score: 24 PT: OT: PCP JOCY Franco [phone] Terrence Keating MD 07/01/2023 * Terrence Keating MD - 06/30/2023 8:00 AM EDT CV HOSPITALIST 2 - [facility] DAILY PROGRESS NOTE Page [phone] to reach a provider 28/09 Admit Date: [...] with positive cardiac markers. Patient transferred to [facility] for further work-up and evaluation. On arrival, [...] Score: 24 PT: OT: PCP JOCY Franco [phone] Terrence Keating MD 06/30/2023 * Terrence Keating MD - 06/29/2023 4:29 PM EDT CV HOSPITALIST 2 - [facility] DAILY PROGRESS NOTE Page [phone] to reach a provider 28/09 Admit Date: [...] with positive cardiac markers. Patient transferred to [facility] for further work-up and evaluation. On arrival, [...] Score: 24 PT: OT: PCP JOCY Franco [phone] Terrence Keating MD 06/29/2023 * Jo Ann Sharpe - 06/29/2023 2:54 PM EDT Nutrition Services Note - Low Nutrition Acuity Loida Roque is a 53 y.o. female Reason for intervention: follow up Nutrition Plan: Continue current diet. Encourage good PO intake. Spironolactone noted. Abdominal pain after eating noted. Encouragement and support provided. Pt screened for follow-up visit and marketing writer met with Pt at bedside. Pt [...] consulted in the interim. Jo Ann Sharpe Road Train Driver * Mary Castaneda RCP - 06/29/2023 3:55 [...] [facility] DAILY PROGRESS NOTE Page [phone] to reach a provider 28/09 Admit Date: [...] with positive cardiac markers. Patient transferred to [facility] for further work-up and evaluation. On arrival, [...] Score: 24 PT: OT: PCP JOCY Franco [phone] * Ailyn Irvin MD - 06/27/2023 9:40 AM EDT CV HOSPITALIST 2 - [facility] DAILY PROGRESS NOTE Page [phone] to reach a provider 28/09 Admit Date: [...] with positive cardiac markers. Patient transferred to [facility] for further work-up and evaluation. On arrival, [...] Score: 24 PT: OT: PCP JOCY Franco [phone] * Ailyn Irvin MD - 06/26/2023 12:42 PM EDT CV HOSPITALIST 2 - [facility] DAILY PROGRESS NOTE Page [phone] to reach a provider 28/09 Admit Date: [...] with positive cardiac markers. Patient transferred to [facility] for further work-up and evaluation. On arrival, [...] Score: 24 PT: OT: PCP JOCY Franco [phone] * Mitali Manuel RCP - 06/26/2023 5:43 [...] with positive cardiac markers. Patient transferred to [facility] for further work-up and evaluation. On arrival, [...] Score: 24 PT: OT: PCP JOCY Franco [phone] * Edith Chandler RCP - 06/24/2023 10:40 [...] [facility] DAILY PROGRESS NOTE Page [phone] to reach a provider 28/09 Admit Date: [...] with positive cardiac markers. Patient transferred to [facility] for further work-up and evaluation. On arrival, [...] Score: 24 PT: OT: PCP JOCY Franco [phone] * Aaron Rosado RCP - 06/24/2023 1:55 [...] and HS. Aaron Rosado RCP * Ailyn Ivrin MD - 06/23/2023 1:03 PM EDT CV HOSPITALIST 2 - [facility] DAILY PROGRESS NOTE Page [phone] to reach a provider 28/09 Admit Date: [...] with positive cardiac markers. Patient transferred to [facility] for further work-up and evaluation. On arrival, [...] Score: 24 PT: OT: PCP JOCY Franco [phone] * Ciera Valdovinos RD - 06/22/2023 2:38 PM EDT Nutrition Services Note - Low Nutrition Acuity Loida Roque is a 53 y.o. female Reason for intervention: hospital day 9 Nutrition Plan: Cardiac Diet Record % PO intake Monitor weight - diuresis noted Patient screened for hospital length of stay nutrition visit, marketing writer met with Loida at bedside. Loida reports excellent appetite, eating 100% of meals. She notes that she has not skipped any meals inpatient and has no current nutrition related questions. She notes UBW 217-218 lbs and says that current weight is higher than normal for her. Diuresis noted. Active Orders Diet Daily Healthy Menu Choices/Cardiac diet ([facility]-Diet) Frequency: Effective Now Number of Occurrences: Until [...] [facility] PROGRESS NOTE Page [phone] to reach a provider 28/09 Admit Date: [...] who have questions please contact the health residential care officer that requested your imaging first. Chest One View (Exam End: 06/22/2023 11:42 AM) Impression No acute pulmonary findings Thank you for letting us participate in the care of this patient. If you are a health care provider and have any questions regarding this report, please contact the number below. For patients who have questions please contact the health residential care officer that requested your imaging first. Assessment: Loida [...] with positive cardiac markers. Patient transferred to [facility] for further work-up and evaluation. On arrival, [...] above Diet: Daily Healthy Menu Choices/Cardiac diet ([facility]-Diet) DVT Prophlaxis: eliquis Code status: Attempt Cardiopulmonary Resuscitation - Inpatient Disposition: Discharge Planning: AM-PAC Basic Mobility Raw Score: 24 PT: OT: PCP JOCY Franco [phone] * Eufemia Copeland MD - 06/21/2023 11:02 AM EDT CV HOSPITALIST 2 - [facility] DAILY PROGRESS NOTE Page [phone] to reach a provider 28/09 Admit Date: [...] with positive cardiac markers. Patient transferred to [facility] for further work-up and evaluation. On arrival, [...] above Diet: Daily Healthy Menu Choices/Cardiac diet ([facility]-Diet) DVT Prophlaxis: eliquis Code status: Attempt Cardiopulmonary Resuscitation - Inpatient Disposition: Discharge Planning: AM-PAC Basic Mobility Raw Score: 24 PT: OT: PCP JOCY Franco [phone] * Eufemia Copeland MD - 06/20/2023 8:06 AM EDT CV HOSPITALIST 2 - [facility] DAILY PROGRESS NOTE Page [phone] to reach a provider 28/09 Admit Date: [...] with positive cardiac markers. Patient transferred to [facility] for further work-up and evaluation. On arrival, [...] above Diet: Daily Healthy Menu Choices/Cardiac diet ([facility]-Diet) DVT Prophlaxis: eliquis Code status: Attempt Cardiopulmonary Resuscitation - Inpatient Disposition: Discharge Planning: AM-PAC Basic Mobility Raw Score: 24 PT: OT: PCP JOCY Franco [phone] * Eufemia Copeland MD - 06/19/2023 10:00 AM EDT CV HOSPITALIST 2 - [facility] DAILY PROGRESS NOTE Page [phone] to reach a provider 28/09 Admit Date: [...] with positive cardiac markers. Patient transferred to [facility] for further work-up and evaluation. On arrival, [...] above Diet: Daily Healthy Menu Choices/Cardiac diet ([facility]-Diet) DVT Prophlaxis: eliquis Code status: Attempt Cardiopulmonary Resuscitation - Inpatient Disposition: Discharge Planning: AM-PAC Basic Mobility Raw Score: 24 PT: OT: PCP JOCY Franco [phone] * Eufemia Copeland MD - 06/18/2023 9:02 AM EDT CV HOSPITALIST 2 - [facility] DAILY PROGRESS NOTE Page [phone] to reach a provider 28/09 Admit Date: [...] with positive cardiac markers. Patient transferred to [facility] for further work-up and evaluation. On arrival, [...] above Diet: Daily Healthy Menu Choices/Cardiac diet ([facility]-Diet) DVT Prophlaxis: eliquis Code status: Attempt Cardiopulmonary Resuscitation - Inpatient Disposition: Discharge Planning: AM-PAC Basic Mobility Raw Score: 24 PT: OT: PCP JOCY Franco [phone] * Eufemia Copeland MD - 06/17/2023 12:02 PM EDT CV HOSPITALIST 2 - [facility] DAILY PROGRESS NOTE Page [phone] to reach a provider 28/09 Admit Date: [...] with positive cardiac markers. Patient transferred to [facility] for further work-up and evaluation. On arrival, [...] above Diet: Daily Healthy Menu Choices/Cardiac diet ([facility]-Diet) DVT Prophlaxis: eliquis Code status: Attempt Cardiopulmonary Resuscitation - Inpatient Disposition: Discharge Planning: AM-PAC Basic Mobility Raw Score: 24 PT: OT: PCP JOCY Franco [phone] * Calista Hernandez, RT - 06/17/2023 4:36 [...] [facility] DAILY PROGRESS NOTE Page [phone] to reach a provider 28/09 Admit Date: [...] and SVT ablation on 04/01/[address] Dowling, paroxysmal A-fib (diagnosed on 10/20/2022), HFpEF, pulmonary emboli on Eliquis, and restrictive lung disease secondary to obesity who presented to OSH with chest pain. Patient has recently undergone extensive workup for ACS that has been unrevealing. 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 The patient current presentation is different with positive cardiac markers. Patient transferred to [facility] for further work-up and evaluation. On arrival, [...] above Diet: Daily Healthy Menu Choices/Cardiac diet ([facility]-Diet) DVT Prophlaxis: eliquis Code status: Attempt Cardiopulmonary Resuscitation - Inpatient Disposition: Discharge Planning: AM-PAC Basic Mobility Raw Score: 24 PT: OT: PCP JOCY Franco [phone] documented in this encounter H&P Notes * [...] pain. The patient was recently admitted at [facility] from 04/16/23 to 04/19/2023 as a transfer from [facility] due to exertional chest pressure and [...] etiology, patient was accepted for transfer to [facility]. 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 fluticasone propionate (FLONASE) 50 mcg/actuation [place], Suspension 1 spray by Each Nare route [...] if hypotensive / cardiogenic shock / inferior IN / sildenafil within past 24 hours) - [...] for discharge to home with family support, [place] [facility] for RN and OP Cardi clinic for f/u. Needs for Transition of Care: Plan for discharge is: Home w/ Services Outpatient Agency/Support Group Needs: None Home Health Services: Registered Nurse Agency Referrals & Follow-up Care: Contact information for follow-up Home Health & Hospice, [place] [address] [place] [address] Transportation: taxi voucher -Ride confirmed entrance #2 [...] other (see comments) (Has CPAP provided through [facility]) DME Needed at Discharge: none Patient is insured through: Primary Insurance: [employer] [place] [place] / Plan[place] / Product Type: *No Product type* / Secondary Insurance: N/A Prescription Coverage: Yes This plan was formulated with input from patient, (please identify family/friend involved if applicable) and team. All are in agreement with plan. Nani Mendoza MSN-Ed, RN ACM Cardiac Research Nurse and Neuro/Neurocrit/ENT Nocturnist Physician. * Care Management - Dixie Patterson - 07/09/2023 1:38 PM EDT Transportation for discharge was scheduled and confirmed through [employer]. [employer] will have a driver sales here at entrance #2 @4pm to bring [...] Visceral Aorta 80 16 Celiac Artery, Proximal [place] 119 26 Celiac Artery, Mid [place] 115 21 Celiac Artery, Distal No Vis Sup Mes Artery Proximal [place] 427 91 Sup Mes Artery Middle [place] 100 17 Sup Mes Artery Distal [place] 64 15 Hepatic Artery No Vis Splenic [...] sign off at this time, please page [phone] with any questions or concerns. Discussed with [...] Visceral Aorta 80 16 Celiac Artery, Proximal [place] 119 26 Celiac Artery, Mid [place] 115 21 Celiac Artery, Distal No Vis Sup Mes Artery Proximal [place]ic 427 91 Sup Mes Artery Middle [place] 100 17 Sup Mes Artery Distal [place] 64 15 Hepatic Artery No Vis Splenic [...] duplex Discussed with Dr. Kamara. Please page [phone] with any questions or concerns. 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 At [place], patient should be strict NPO. The plan as outlined above was discussed with Dr. Villa. Recommendations were discussed with primary team. Sis Keenan M.D. Fellow in Gastroenterology and Hepatology Pager #[phone] 07/06/2023 Associated attestation - Lashonda Villa MD [...] Lashonda Villa MD Gastroenterology and hepatology Pager: [phone] * Plan of Care - Olive Hernandez [...] Visceral Aorta 80 16 Celiac Artery, Proximal [place] 119 26 Celiac Artery, Mid [place]hasic 115 21 Celiac Artery, Distal No Vis Sup Mes Artery Proximal [place]ic 427 91 Sup Mes Artery Middle [place] 100 17 Sup Mes Artery Distal [place] 64 15 Hepatic Artery No Vis Splenic [...] duplex Discussed with Dr. Kamara. Please page [phone] with any questions or concerns. Gauri Vega [...] Visceral Aorta 80 16 Celiac Artery, Proximal [place] 119 26 Celiac Artery, Mid [place] 115 21 Celiac Artery, Distal No Vis Sup Mes Artery Proximal [place] 427 91 Sup Mes Artery Middle [place] 100 17 Sup Mes Artery Distal [place] 64 15 Hepatic Artery No Vis Splenic [...] ASA) Discussed with Dr. Kamara. Please page [phone] with any questions or concerns. Gauri Vega [...] Visceral Aorta 80 16 Celiac Artery, Proximal [place] 119 26 Celiac Artery, Mid [place] 115 21 Celiac Artery, Distal No Vis Sup Mes Artery Proximal [place] 427 91 Sup Mes Artery Middle [place] 100 17 Sup Mes Artery Distal [place] 64 15 Hepatic Artery No Vis Splenic [...] 07/02/[address] Kamara. Please page [phone] with any questions or concerns. Gauri Vega [...] Visceral Aorta 80 16 Celiac Artery, Proximal [place] 119 26 Celiac Artery, Mid [place] 115 21 Celiac Artery, Distal No Vis Sup Mes Artery Proximal [place] 427 91 Sup Mes Artery Middle [place] 100 17 Sup Mes Artery Distal [place] 64 15 Hepatic Artery No Vis Splenic [...] tonight Discussed with Dr. Kamara. Please page [phone] with any questions or concerns. Gauri Vega [...] Visceral Aorta 80 16 Celiac Artery, Proximal [place] 119 26 Celiac Artery, Mid [place] 115 21 Celiac Artery, Distal No Vis Sup Mes Artery Proximal [place] 427 91 Sup Mes Artery Middle [place] 100 17 Sup Mes Artery Distal [place] 64 15 Hepatic Artery No Vis Splenic [...] Visceral Aorta 80 16 Celiac Artery, Proximal [place] 119 26 Celiac Artery, Mid [place] 115 21 Celiac Artery, Distal No Vis Sup Mes Artery Proximal [place] 427 91 Sup Mes Artery Middle [place] 100 17 Sup Mes Artery Distal [place] 64 15 Hepatic Artery No Vis Splenic [...] Dominguez PA - 06/28/2023 8:52 AM EDT [facility] Department of Cardiology Consult Progress Note Reason [...] consultation required. SUHA LangstonC Cardiovascular Medicine Pager [phone] 06/28/2023 Associated attestation - Klarissa Henderson MD [...] Tellez MD - 06/24/2023 2:14 PM EDT [facility] Department of Cardiology Consult Progress Note Reason [...] if further consultation required. 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 fluticasone propionate (FLONASE) 50 mcg/actuation [place], Suspension 1 spray by Each Nare route [...] other (see comments) (Has CPAP provided through [facility]) DME Needed at Discharge: No Patient is insured through: [place]: [employer] [place] / [place] / [...] Anticipated Date of Discharge: 06/23/2023 [place] vice president payment Pgr: [phone] * Plan of Care - [...] other (see comments) (Has CPAP provided through [facility]) DME Needed at Discharge: No Patient is insured through: [place] / Plan[place] [facility] [place] / Product Type: [...] of Discharge: 06/19/2023 BEA Killian, RN Inpatient Traffic Technician- Cardiology Office of Care Management Pager #: [phone] * Plan of Care - Olive Hernandez [...] COVID test: Lab Results Component Value Date [id number] Not Detected 06/13/2021 Past medical History: Past [...] In the past 12 months has the [employer], gas, oil, or water [employer] threatened to shut off services in your [...] medical) Home Address confirmed as: [address] [place] [address] Social & Family Supports: All names listed [...] Specific Information: Has a CPAP provided by [employer]/Prescription Coverage: Primary Insurance: [employer] [employer] [place] / Plan[place] [email or web address] [place] / Product Type: *No Product type* / Secondary Insurance: N/A ; Prescription Coverage: Yes Preferred Pharmacy: [facility] [address] [address] [facility] [place], [place] - [address] [facility] [address] [facility] [address] [facility] [address] [place] Status: Patient is a : No Primary Care Provider confirmed: JOCY Franco [phone] Patient/Caregiver Goals of Treatment: To figure out what is wrong Potential Needs for Transition of Care: other (see comments) ([facility] help) Agency Referrals: Not Applicable Transportation: no concerns Transportation Anticipated: agency ( can not drive , mother does not drive , Son does not have a car) Concerns to be Addressed: discharge planning Assessment: Patient is admitted to [facility] service for Chest pain Plan: May [...] planning. Office of Care Management Float / realtime reporter vice president payment [email or web address] Pager #[phone] * Consult Note - Jackie Batres MD - 06/15/2023 11:04 AM EDT [facility] Department of Cardiology Initial Consult Note Patient: [...] her case. 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 monitoring for arrhythmia, though unlikely, is possible [...] PM EDT Office Visit Cardiology at [address] [phone] Jaspreet Kinsey MD [facility] [place] [address] 10/28/2023 9:00 AM EDT Office [place] [address] 10/29/2023 10:00 AM EDT Clinical [place] [address] 10/29/2023 10:15 AM EDT Procedure [place] [address] 11/01/2023 5:00 PM EDT Office [place] [phone] Selene Browning, PhD [facility] [place] [address] 11/22/2023 4:40 PM EDT Office Visit Cardiology at [address] [phone] Porsha Mcdaniels MD [facility] [place] [address] 12/13/2023 10:00 AM EDT Clinical [place] [phone] [facility] [place] [address] Scheduled Orders Name Type Priority Associated Diagnoses [...] Routine 07/07/2023 2:25 PM EDT Colonoscopy, Biopsy ([id number]) 07/07/2023 2:10 PM EDT post prandial pain Upper Gi Endoscopy, Biopsy ([id number]) 07/07/2023 2:10 PM EDT post prandial pain [...] EDT) Glucose 111 65 - 199 mg/dL [facility] Comment:Diabetes: >=200 mg/d L plus symptoms Blood Urea Nitrogen 29(H) 8 - 18 mg/dL [facility] [...] 107 mmol/L [facility] Carbon Dioxide 29 22 - 31 mmol/L [facility] Anion Gap 12 5 - 15 mmol/L [facility] Calcium 10.0 8.5 - 10.5 mg/dL [facility] Est Glomerular Filtration Rate 44(L) >=60 mL/min/1. 73 m?? [facility] [...] In Lab Terrence Keating MD CHEMISTRY ORDERABLES [facility] [place] [address] * Differential, Automated (07/09/2023 3:03 AM EDT) Neutrophil % 51.4 % [facility] Neutrophil Absolute 3.43 1.70 - 6.10 x10(3)/mcL [facility] Lymph % 31.4 % [facility] Lymphocytes Abs 2.1 0.9 - 3.2 x10(3)/[facility] Monocyte % 10.1 % [facility] Monocyte Abs 0.7 0.3 - 0.9 x10(3)/[facility] Eos % 6.0 % [facility] Eosinophils Abs 0.4 0.0 - 0.4 x10(3)/[facility] Basophil % 0.8 % [facility] Baso Absolute 0.0 0.0 - 0.1 x10(3)/[facility] Immature Gran % 0.30 % [facility] Comment: Immature granulocytes(IG's)percentage and absolute count will include metamyelocytes, myelocytes, and promyelocytes. Blood smears from CBCs yielding IG's will be scanned manually for concordance. If this scan disagrees with the automated IG or if promyelocytes are noted, a manual differential will be performed. Immature Gran Absolute 0.02 0.00 - 0.04 x10(3)/[facility] Blood 07/09/2023 3:03 AM EDT 07/09/2023 3:14 AM EDT Narrative Resulting Agency Comment Spec In Lab Terrence Keating MD HEMATOLOGY ORDERABLE S Performing Organization Address City/State/[facility] Co de Phone Number [facility] [place] [address] * (ABNORMAL) Hemogram (07/09/2023 3:03 AM EDT) White Blood Cell 6.7 4.0 - 9.5 x10(3)/mc L [facility] Red Blood Cell 3.87(L) 4.00 - 5.21 x10(6)/mc L [facility] Hemoglobin 12.4 11.7 - 15.5 g/dL [facility] Hematocrit 36.8 35.7 - 45.8 % [facility] Mean Cell Volume 95.1(H) 82.6 - 94.4 fL [facility] Mean Cell Hemoglobin 32.0 27.1 - 32.0 pg [facility] Mean Cell Hemoglobin Concentration 33.7 31.7 - 35.0 g/dL [facility] Platelet 209 145 - 357 x10(3)/mc L [facility] RDW Standard Deviation 47.9(H) 37.0 - 46.0 fL [facility] RDW coefficient of variation 13.7 11.5 - 14.1 % [facility] Mean Platelet Volume 10.5 7.6 - 12.9 fL [facility] NRBC% auto 0.0 % [facility] NRBC Absolute 0.000 0.000 - 0.000 x10(3)/mc L [facility] Blood 07/09/2023 3:03 AM EDT 07/09/2023 3:14 AM EDT Narrative Resulting Agency Comment Spec In Lab Terrence Keating MD HEMATOLOGY ORDERABLE S [facility] [place] [address] * Heparin (unfractionated) Level (07/09/2023 3:03 AM EDT) UF Heparin 0.52 IU/mL [facility] [...] Lab Ailyn Irvin MD HEMATOLOGY ORDERABLE S [facility] [place] [address] * (ABNORMAL) Basic Metabolic Panel (non-fasting) (07/09/2023 3:03 AM EDT) Glucose 100 65 - 199 mg/dL [facility] Comment:Diabetes: >=200 mg/d L plus symptoms Blood Urea Nitrogen 12 8 - 18 mg/dL [facility] Creatinine 1.24(H) 0.70 - 1.20 mg/dL [facility] Sodium 138 135 - 145 mmol/L [facility] Potassium 4.2 3.5 - 5.0 mmol/L [facility] Comment: Please note: ??Patients with WBC >100,000 may have falsely elevated Potassium levels. ??For accurate Potassium quantification in these patients send serum separator tube (gold top) for subsequent determinations. ??Contact the Clinical Chemistry Laboratory if there are any questions. Chloride 104 98 - 107 mmol/L [facility] Carbon Dioxide 22 22 - 31 mmol/L [facility] Anion Gap 12 5 - 15 mmol/L [facility] Calcium 9.3 8.5 - 10.5 mg/dL [facility] Est Glomerular Filtration Rate 52(L) >=60 mL/min/1. 73 m?? [facility] [...] CHEMISTRY ORDERABL ES Performing Organization Address [facility]/ZIP Co de Phone Number [facility] [place] [address] * Phosphorus (07/09/2023 3:03 AM EDT) Phosphorus 4.5 2.5 - 4.5 mg/dL [facility] Blood 07/09/2023 3:03 AM EDT 07/09/2023 3:14 AM EDT Narrative Resulting Agency Comment Spec In Lab Eufemia Copeland MD CHEMISTRY ORDERABL ES Performing Organization Address [facility] Co de Phone Number [facility] [place] [address] * Magnesium (07/09/2023 3:03 AM EDT) Magnesium 0.91 0.69 - 1.07 mmol/L [facility] Blood 07/09/2023 3:03 AM EDT 07/09/2023 3:14 AM EDT Narrative Resulting Agency Comment Spec In Lab Eufemia Copeland MD CHEMISTRY ORDERABL ES Performing Organization Address [facility] Co de Phone Number [facility] [place] [address] * Heparin (unfractionated) Level (07/08/2023 12:02 PM EDT) UF Heparin 0.45 IU/mL [facility] [...] City/[facility]/ZIP Co de Phone Number [facility] [place] [address] * EKG 12 Lead (07/08/2023 9:58 AM EDT) Ventricular rate 66 BPM MUSE SYSTEM Atrial Rate 66 BPM MUSE SYSTEM P-R Interval 178 ms MUSE SYSTEM QRS Duration 92 ms MUSE SYSTEM Q-T Interval 486 ms MUSE SYSTEM QTC Calculated (Bezet) 509 ms MUSE SYSTEM Calculated P [place] 29 degrees MUSE SYSTEM Calculated R [place] 33 degrees MUSE SYSTEM Calculated T [place] 29 degrees MUSE SYSTEM INTERPRETATION Normal sinus rhythm Nonspecific ST and T wave abnormality Prolonged QT Abnormal ECG When compared with ECG of 04-JUL-2023 11:41, Criteria for Septal infarct are no longer Present I personally reviewed the tracing and edited the fellows interpretation Confirmed by fellow MD Keyshawn, Katalina ([id number]) on 07/08/2023 3:18:07 PM Confirmed by MD Beatriz, Klarissa ([id number]) on 07/09/2023 6:15:21 AM MUSE SYSTEM 07/08/2023 9:58 AM EDT 07/09/2023 6:15 AM EDT Lisa Beck MD ECG ORDERABLES Performing Organization Address City/[facility]/ZIP Co de Phone Number MUSE SYSTEM * Differential, Automated (07/08/2023 5:52 AM EDT) Neutrophil % 60.6 % [facility] Neutrophil Absolute 4.42 1.70 - 6.10 x10(3)/[facility] Lymph % 24.8 % [facility] Lymphocytes Abs 1.8 0.9 - 3.2 x10(3)/[facility] Monocyte % 9.2 % [facility] Monocyte Abs 0.7 0.3 - 0.9 x10(3)/[facility] Eos % 4.5 % [facility] Eosinophils Abs 0.3 0.0 - 0.4 x10(3)/[facility] Basophil % 0.5 % [facility] Baso Absolute 0.0 0.0 - 0.1 x10(3)/[facility] Immature Gran % 0.40 % [facility] Comment: Immature granulocytes(IG's)percentage and absolute count will include metamyelocytes, myelocytes, and promyelocytes. Blood smears from CBCs yielding IG's will be scanned manually for concordance. If this scan disagrees with the automated IG or if promyelocytes are noted, a manual differential will be performed. Immature Gran Absolute 0.03 0.00 - 0.04 x10(3)/[facility] Blood 07/08/2023 5:52 AM EDT 07/08/2023 5:58 AM EDT Narrative Resulting Agency Comment Spec In Lab Terrence Keating MD HEMATOLOGY ORDERABLE S [facility] [place] [address] * (ABNORMAL) Hemogram (07/08/2023 5:52 AM EDT) [facility] White Blood Cell 7.3 4.0 - 9.5 x10(3)/mc L [facility] Red Blood Cell 3.94(L) 4.00 - 5.21 x10(6)/mc L [facility] Hemoglobin 12.3 11.7 - 15.5 g/dL [facility] Hematocrit 36.3 35.7 - 45.8 % [facility] Mean Cell Volume 92.1 82.6 - 94.4 fL [facility] Mean Cell Hemoglobin 31.2 27.1 - 32.0 pg [facility] Mean Cell Hemoglobin Concentration 33.9 31.7 - 35.0 g/dL [facility] Platelet 207 145 - 357 x10(3)/mc L [facility] RDW Standard Deviation 44.6 37.0 - 46.0 fL [facility] RDW coefficient of variation 13.3 11.5 - 14.1 % [facility] Mean Platelet Volume 10.5 7.6 - 12.9 fL [facility] NRBC% auto 0.0 % [facility] NRBC Absolute 0.000 0.000 - 0.000 x10(3)/mc L [facility] Blood 07/08/2023 5:52 AM EDT 07/08/2023 5:58 AM EDT Narrative Resulting Agency Comment Spec In Lab Terrence Keating MD HEMATOLOGY ORDERABLE S [facility] [place] [address] * Heparin (unfractionated) Level (07/08/2023 5:52 AM EDT) UF Heparin 0.37 IU/mL [facility] [...] Lab Ailyn Irvin MD HEMATOLOGY ORDERABLE S [facility] [place] [address] * (ABNORMAL) Basic Metabolic Panel (non-fasting) (07/08/2023 5:52 AM EDT) Glucose 102 65 - 199 mg/dL [facility] Comment:Diabetes: >=200 mg/d L plus symptoms Blood Urea Nitrogen 14 8 - 18 mg/dL [facility] Creatinine 1.30(H) 0.70 - 1.20 mg/dL [facility] Sodium 139 135 - 145 mmol/L [facility] Potassium 3.2(L) 3.5 - 5.0 mmol/L [facility] Comment: Please note: ??Patients with WBC >100,000 may have falsely elevated Potassium levels. ??For accurate Potassium quantification in these patients send serum separator tube (gold top) for subsequent determinations. ??Contact the Clinical Chemistry Laboratory if there are any questions. Chloride 101 98 - 107 mmol/L [facility] Carbon Dioxide 25 22 - 31 mmol/L [facility] Anion Gap 13 5 - 15 mmol/L [facility] Calcium 9.3 8.5 - 10.5 mg/dL [facility] Est Glomerular Filtration Rate 49(L) >=60 mL/min/1. 73 m?? [facility] [...] City/[facility]/ZIP Co de Phone Number [facility] [place] [address] * Phosphorus (07/08/2023 5:52 AM EDT) Phosphorus 4.3 2.5 - 4.5 mg/dL [facility] Blood 07/08/2023 5:52 AM EDT 07/08/2023 5:58 AM EDT Narrative Resulting Agency Comment Spec In Lab Eufemia Copeland MD CHEMISTRY ORDERABL ES Performing Organization Address [facility] Co de Phone Number [facility] [place] [address] * Magnesium (07/08/2023 5:52 AM EDT) Magnesium 0.89 0.69 - 1.07 mmol/L [facility] Blood 07/08/2023 5:52 AM EDT 07/08/2023 5:58 AM EDT Narrative Resulting Agency Comment Spec In Lab Eufemia Copeland MD CHEMISTRY ORDERABL ES Performing Organization Address [facility] Co de Phone Number [facility] [place] [address] * Heparin (unfractionated) Level (07/08/2023 12:00 AM EDT) UF Heparin 0.22 IU/mL LASHONDA HITC [facility] [...] MD HEMATOLOGY ORDERABLE S Performing Organization Address [facility] de Phone Number [facility] [place] [address] * Specimen to Pathology (07/07/2023 2:55 PM EDT) AP Specimen 07/07/2023 2:55 PM EDT 07/07/2023 2:55 PM EDT Narrative [facility] - 07/07/2023 2:55 PM EDT Specimen requisition ordered. ??Separate Pathology report to follow Terrence Keating MD PATHOLOGY/CYTOLOGY O RUMA Performing Organization Address [facility] Co de Phone Number [facility] [place] [address] * Specimen to Pathology (07/07/2023 2:38 PM EDT) AP Specimen 07/07/2023 2:38 PM EDT 07/07/2023 2:38 PM EDT Narrative [facility] - 07/07/2023 2:38 PM EDT Specimen requisition ordered. ??Separate Pathology report to follow Terrence Keating MD PATHOLOGY/CYTOLOGY O RUMA Performing Organization Address [facility] Co de Phone Number [facility] [place] [address] * Specimen to Pathology (07/07/2023 2:38 PM EDT) AP Specimen 07/07/2023 2:38 PM EDT 07/07/2023 2:38 PM EDT Narrative [facility] - 07/07/2023 2:38 PM EDT Specimen requisition ordered. ??Separate Pathology report to follow Terrence Keating MD PATHOLOGY/CYTOLOGY O RDERABLES [facility] [place] [address] * Surgical Pathology Report (07/07/2023 2:25 PM EDT) Final Diagnosis [id number] ? Location: [facility]; [facility]; A The signing pathologist has (i) [...] Sapna Verified: ??07/19/2023 13:25 ??Pathologist Performed at: ??-[facility] Dept. of Pathology, [place] [address] Client Resource Specialist: Vangie Lu MD, FCAP, ??CLIA Certificate: [id number] SPECIMEN(S) SUBMITTED A - duodenal biopsies rule [...] labeled C1-C2. ??sdy 07/19/2023 1:25 PM EDT [facility] GI Biopsy 07/07/2023 2:25 PM EDT 07/07/2023 2:25 PM EDT GI Biopsy 07/07/2023 2:25 PM EDT 07/07/2023 2:25 PM EDT GI Biopsy 07/07/2023 2:25 PM EDT 07/07/2023 2:25 PM EDT Lashonda Villa MD PATHOLOGY/CYTOLOGY O RDERABLES [facility] [place] [address] * COLONOSCOPY (07/07/2023 1:39 PM EDT) COLONOSCOPY [facility] Procedure Date: 07/07/2023 1:39 PM ? Patient Name: Loida Roque ? Date of : 1970 ? Age: 53 ? Order #: [id number] ? Instrument Name: [id number]- [id number] ? Procedure: ? Colonoscopy Indications: ? Abdominal [...] ? was evaluated using the BBPS ? ([place] Bowel Preparation Scale) ? with scores of: [...] Procedure Code(s): ? --- Professional --- ? 04384, Colonoscopy, flexible; with ? biopsy, single or multiple CPT copyright 2022 [employer]. All rights reserved. The codes documented in this report are preliminary and upon counter former review may be revised to meet current [...] GENERAL SURGICAL ORD ERABLES Performing Organization Address City/[facility] Co de Phone Number [employer] * Shiga Toxin Detection (07/07/2023 12:10 PM EDT) Shiga Toxin Assay EIA Negative for Shiga Toxin 1 EIA Negative for Shiga Toxin 2 [facility] Stool 07/07/2023 12:1 0 PM EDT 07/07/2023 12:53 PM EDT Narrative Resulting Agency Comment Spec In Lab Ailyn Irvin MD MICROBIOLOGY - GENER AL ORDERABLES Performing Organization Address [facility] de Phone Number [facility] [place] [address] * Campylobacter Antigen (07/07/2023 12:10 PM EDT) Campylobacter Ag Immunoassay Negative for Campylobacter Antigen [facility] Stool 07/07/2023 12:1 0 PM EDT 07/07/2023 12:53 PM EDT Narrative Resulting Agency Comment Spec In Lab Ailyn Irvin MD MICROBIOLOGY - GENER AL ORDERABLES Performing Organization Address [facility] [facility] de Phone Number [facility] [place] [address] * Stool culture (07/07/2023 12:10 PM EDT) Stool Culture No enteric pathogens isolated [facility] Stool 07/07/2023 12:1 0 PM EDT 07/07/2023 12:53 PM EDT Narrative Resulting Agency Comment Spec In Lab Ailyn Irvin MD MICROBIOLOGY - [place] [address] * (ABNORMAL) Differential, Automated (07/07/2023 3:51 AM EDT) Neutrophil % 58.9 % [facility] Neutrophil Absolute 4.67 1.70 - 6.10 x10(3)/mc L [facility] Lymph % 24.8 % [facility] Lymphocytes Abs 2.0 0.9 - 3.2 x10(3)/mc L [facility] Monocyte % 9.4 % [facility] Monocyte Abs 0.7 0.3 - 0.9 x10(3)/mc L [facility] Eos % 6.1 % [facility] Eosinophils Abs 0.5(H) 0.0 - 0.4 x10(3)/mc L [facility] Basophil % 0.5 % [facility] Baso Absolute 0.0 0.0 - 0.1 x10(3)/mc L [facility] Immature Gran % 0.30 % [facility] Comment: Immature granulocytes(IG's)percentage and absolute count will include metamyelocytes, myelocytes, and promyelocytes. Blood smears from CBCs yielding IG's will be scanned manually for concordance. If this scan disagrees with the automated IG or if promyelocytes are noted, a manual differential will be performed. Immature Gran Absolute 0.02 0.00 - 0.04 x10(3)/mc L [facility] Blood 07/07/2023 3:51 AM EDT 07/07/2023 4:08 AM EDT Narrative Resulting Agency Comment Spec In Lab Terrence Keating MD HEMATOLOGY ORDERABLE S Performing Organization Address City/[facility]/ZIP Co de Phone Number [facility] [place] [address] * Hemogram (07/07/2023 3:51 AM EDT) White Blood Cell 7.9 4.0 - 9.5 x10(3)/[facility]AT[facility] Red Blood Cell 4.42 4.00 - 5.21 x10(6)/[facility] Hemoglobin 13.8 11.7 - 15.5 g/dL [facility] Hematocrit 41.0 35.7 - 45.8 % [facility] Mean Cell Volume 92.8 82.6 - 94.4 fL [facility] Mean Cell Hemoglobin 31.2 27.1 - 32.0 pg [facility] Mean Cell Hemoglobin Concentration 33.7 31.7 - 35.0 g/dL [facility] Platelet 255 145 - 357 x10(3)/[facility] LABORATORY RDW Standard Deviation 44.8 37.0 - 46.0 fL [facility] RDW coefficient of variation 13.2 11.5 - 14.1 % [facility] Mean Platelet Volume 10.6 7.6 - 12.9 fL [facility] NRBC% auto 0.0 % [facility] NRBC Absolute 0.000 0.000 - 0.000 x10(3)/[facility] Blood 07/07/2023 3:51 AM EDT 07/07/2023 4:08 AM EDT Narrative Resulting Agency Comment Spec In Lab Terrence Keating MD HEMATOLOGY ORDERABLE S [facility] [place] [address] * Heparin (unfractionated) Level (07/07/2023 3:51 AM EDT) UF Heparin 0.33 IU/mL [facility] [...] Lab Terrence Keating MD HEMATOLOGY ORDERABLE S [facility] [place] [address] * (ABNORMAL) Basic Metabolic Panel (non-fasting) (07/07/2023 3:51 AM EDT) Glucose 101 65 - 199 mg/dL [facility] Comment:Diabetes: >=200 mg/d L plus symptoms Blood Urea Nitrogen 18 8 - 18 mg/dL [facility] Creatinine 1.30(H) 0.70 - 1.20 mg/dL [facility] Sodium 135 135 - 145 mmol/L [facility] Potassium 3.5 3.5 - 5.0 mmol/L [facility] Comment: Please note: ??Patients with WBC >100,000 may have falsely elevated Potassium levels. ??For accurate Potassium quantification in these patients send serum separator tube (gold top) for subsequent determinations. ??Contact the Clinical Chemistry Laboratory if there are any questions. Chloride 96(L) 98 - 107 mmol/L [facility] Carbon Dioxide 23 22 - 31 mmol/L [facility] Anion Gap 16(H) 5 - 15 mmol/L [facility] Calcium 9.4 8.5 - 10.5 mg/dL [facility] Est Glomerular Filtration Rate 49(L) >=60 mL/min/1. 73 m?? [facility] CHEMISTRY ORDERABL ES Performing Organization Address [facility]/ZIP Co de Phone Number [facility] [place] [address] * Phosphorus (07/07/2023 3:51 AM EDT) Phosphorus 4.0 2.5 - 4.5 mg/dL [facility] Blood 07/07/2023 3:51 AM EDT 07/07/2023 4:08 AM EDT Narrative Resulting Agency Comment Spec In Lab Eufemia Copeland MD CHEMISTRY ORDERABL ES Performing Organization Address City/[facility]/ZIP Co de Phone Number [facility] [place] [address] * Magnesium (07/07/2023 3:51 AM EDT) Magnesium 0.87 0.69 - 1.07 mmol/L [facility] Blood 07/07/2023 3:51 AM EDT 07/07/2023 4:08 AM EDT Narrative Resulting Agency Comment Spec In Lab Eufemia Copeland MD CHEMISTRY ORDERABL ES Performing Organization Address City/[facility]/ZIP Co de Phone Number [facility] [place] [address] * Hepatic Function Panel (07/07/2023 3:51 AM EDT) Protein, Total 7.5 6.1 - 8.0 g/dL [facility] Albumin 4.4 3.2 - 5.2 g/dL [facility] Aspartate Aminotransferase 15 0 - 30 unit/L [facility] Alanine Aminotransferase 20 0 - 30 unit/L [facility] Alkaline Phosphatase 54 35 - 105 unit/L [facility] Bilirubin, Total 0.4 0.2 - 1.3 mg/dL [facility] Bilirubin, Direct 0.1 0.0 - 0.3 mg/dL [facility] Blood 07/07/2023 3:51 AM EDT 07/07/2023 4:08 AM EDT Narrative Resulting Agency Comment Spec In Lab Ailyn Irvin MD CHEMISTRY ORDERABLES Performing Organization Address [facility]/ZIP Co de Phone Number [facility] [place] [address] * Giardia/Cryptosporidium Antigens ([facility]/CGP/APD/NLH) (07/07/2023 12:38 AM EDT) Pathologist [facility] Giardia Antigen Negative Negative [facility] Comment:Examination for othe r intestinal parasites requires foreign travel history. Cryptosporidium Antigen Negative Negative [facility] Stool 07/07/2023 12:3 8 AM EDT 07/07/2023 7:56 AM EDT Narrative Resulting Agency Comment Spec In Lab Ailyn Irvin MD MICROBIOLOGY - GENER AL ORDERABLES Performing Organization Address City/[facility]/ZIP Co de Phone Number [facility] [place] [address] * Hepatic Function Panel (07/06/2023 3:41 PM EDT) Protein, Total 7.6 6.1 - 8.0 g/dL [facility] Albumin 4.3 3.2 - 5.2 g/dL [facility] Aspartate Aminotransferase 20 0 - 30 unit/L [facility] Alanine Aminotransferase 22 0 - 30 unit/L [facility] Alkaline Phosphatase 58 35 - 105 unit/L [facility] Bilirubin, Total 0.4 0.2 - 1.3 mg/dL [facility] Bilirubin, Direct 0.1 0.0 - 0.3 mg/dL [facility] Blood 07/06/2023 3:41 PM EDT 07/06/2023 4:00 PM EDT Narrative Resulting Agency Comment Spec In Lab Terrence Keating MD CHEMISTRY ORDERABLES Performing Organization Address City/State/[facility] Co de Phone Number [facility] [place] [address] * Hepatic Function Panel (07/06/2023 3:54 AM EDT) Protein, Total 7.6 6.1 - 8.0 g/dL [facility] Albumin 4.3 3.2 - 5.2 g/dL [facility] Aspartate Aminotransferase Not Perf 0 - 30 [facility] Comment: Unable to quantitate due to sample hemolysis. ??Sample redraw suggested. Called by: abimbola, Read back by: Ana Paula Borja, Date/Time:07/06/23 14:08. Alanine Aminotransferase 25 0 - 30 unit/L [facility] Alkaline Phosphatase 58 35 - 105 unit/L [facility] Bilirubin, Total 0.4 0.2 - 1.3 mg/dL [facility] Bilirubin, Direct Not Perf 0.0 - 0.3 [facility] Blood Venous Draw / Unknown 07/06/2023 3:54 AM EDT 07/06/2023 4:18 AM EDT Narrative Resulting Agency Comment Spec In Lab Terrence Keating MD CHEMISTRY ORDERABLES Performing Organization Address City/[facility]/ZIP Co de Phone Number [facility] [place] [address] * (ABNORMAL) Differential, Automated (07/06/2023 3:54 AM EDT) Neutrophil % 56.6 % [facility] Neutrophil Absolute 4.34 1.70 - 6.10 x10(3)/ L [facility] Lymph % 26.1 % [facility] Lymphocytes Abs 2.0 0.9 - 3.2 x10(3)/[facility] LABORATORY Monocyte % 9.6 % [facility] Monocyte Abs 0.7 0.3 - 0.9 x10(3)/[facility] LABORATORY Eos % 6.6 % [facility] Eosinophils Abs 0.5(H) 0.0 - 0.4 x10(3)/[facility] LABORATORY Basophil % 0.7 % [facility] Baso Absolute 0.0 0.0 - 0.1 x10(3)/[facility] LABORATORY Immature Gran % 0.40 % [facility] Comment: Immature granulocytes(IG's)percentage and absolute count will include metamyelocytes, myelocytes, and promyelocytes. Blood smears from CBCs yielding IG's will be scanned manually for concordance. If this scan disagrees with the automated IG or if promyelocytes are noted, a manual differential will be performed. Immature Gran Absolute 0.03 0.00 - 0.04 x10(3)/ L [facility] Blood 07/06/2023 3:54 AM EDT 07/06/2023 4:12 AM EDT Narrative Resulting Agency Comment Spec In Lab Terrence Keating MD HEMATOLOGY ORDERABLE S [facility] [place] [address] * (ABNORMAL) Hemogram (07/06/2023 3:54 AM EDT) [facility] White Blood Cell 7.7 4.0 - 9.5 x10(3)/ L [facility] Red Blood Cell 4.62 4.00 - 5.21 x10(6)/[facility] LABOR[facility]ORY Hemoglobin 14.7 11.7 - 15.5 g/dL [facility] Hematocrit 43.8 35.7 - 45.8 % [facility] Mean Cell Volume 94.8(H) 82.6 - 94.4 fL [facility] Mean Cell Hemoglobin 31.8 27.1 - 32.0 pg [facility] Mean Cell Hemoglobin Concentration 33.6 31.7 - 35.0 g/dL [facility] Platelet 243 145 - 357 x10(3)/[facility] LABORATORY RDW Standard Deviation 47.2(H) 37.0 - 46.0 [facility] LABORATORY RDW coefficient of variation 13.5 11.5 - 14.1 % [facility] Mean Platelet Volume 10.4 7.6 - 12.9 [facility] LABOR[facility]ORY NRBC% auto 0.0 % [facility] NRBC Absolute 0.000 0.000 - 0.000 x10(3)/[facility] LABOR[facility]ORY Blood 07/06/2023 3:54 AM EDT 07/06/2023 4:12 AM EDT Narrative Resulting Agency Comment Spec In Lab Terrence Keating MD HEMATOLOGY ORDERABLE S [facility] [place] [address] * (ABNORMAL) Basic Metabolic Panel (non-fasting) (07/06/2023 3:54 AM EDT) [facility] Glucose 107 65 - 199 mg/dL [facility] Comment:Diabetes: >=200 mg/d L plus symptoms Blood Urea Nitrogen 16 8 - 18 mg/dL [facility] Creatinine 1.25(H) 0.70 - 1.20 mg/dL [facility] Sodium 135 135 - 145 mmol/L [facility] Potassium 3.9 3.5 - 5.0 mmol/L [facility] Comment: Please note: ??Patients with WBC >100,000 may have falsely elevated Potassium levels. ??For accurate Potassium quantification in these patients send serum separator tube (gold top) for subsequent determinations. ??Contact the Clinical Chemistry Laboratory if there are any questions. Chloride 98 98 - 107 mmol/L [facility] Carbon Dioxide 23 22 - 31 mmol/L [facility] Anion Gap 14 5 - 15 mmol/L [facility] Calcium 10.0 8.5 - 10.5 mg/dL [facility] Est Glomerular Filtration Rate 51(L) >=60 mL/min/1. 73 m?? [facility] [...] Lab Eufemia Copeland MD CHEMISTRY ORDERABL ES [facility] [place] [address] * Phosphorus (07/06/2023 3:54 AM EDT) Phosphorus 4.5 2.5 - 4.5 mg/dL [facility] Blood 07/06/2023 3:54 AM EDT 07/06/2023 4:18 AM EDT Narrative Resulting Agency Comment Spec In Lab Eufemia Copeland MD CHEMISTRY ORDERABL ES Performing Organization Address [facility] de Phone Number [facility] [place] [address] * Magnesium (07/06/2023 3:54 AM EDT) [facility] Magnesium 0.97 0.69 - 1.07 mmol/L [facility] Blood 07/06/2023 3:54 AM EDT 07/06/2023 4:18 AM EDT Narrative Resulting Agency Comment Spec In Lab Eufemia Copeland MD CHEMISTRY ORDERABL ES Performing Organization Address [facility] Co de Phone Number [facility] [place] [address] * Heparin (unfractionated) Level (07/06/2023 3:54 AM EDT) [facility] UF Heparin 0.31 IU/mL [facility] [...] MD HEMATOLOGY ORDERABLE S Performing Organization Address [facility]/ZIP Co de Phone Number [facility] [place] [address] * Amylase (07/05/2023 5:44 PM EDT) Amylase 35 28 - 100 unit/L [facility] Blood 07/05/2023 5:44 PM EDT 07/05/2023 6:00 PM EDT Narrative Resulting Agency Comment Spec In Lab Terrence Keating MD CHEMISTRY ORDERABLES Performing Organization Address [facility] Co de Phone Number [facility] [place] [address] * Lipase (07/05/2023 5:44 PM EDT) Lipase 17 0 - 60 unit/L [facility] Blood 07/05/2023 5:44 PM EDT 07/05/2023 6:00 PM EDT Narrative Resulting Agency Comment Spec In Lab Terrence Keating MD CHEMISTRY ORDERABLES Performing Organization Address [facility] Co de Phone Number [facility] [place] [address] * (ABNORMAL) Basic Metabolic Panel (non-fasting) (07/05/2023 5:44 PM EDT) Glucose 130 65 - 199 mg/dL [facility] Comment:Diabetes: >=200 mg/d L plus symptoms Blood Urea Nitrogen 17 8 - 18 mg/dL [facility] Creatinine 1.30(H) 0.70 - 1.20 mg/dL [facility] Sodium 134(L) 135 - 145 mmol/L [facility] Potassium 3.7 3.5 - 5.0 mmol/L [facility] Comment: Please note: ??Patients with WBC >100,000 may have falsely elevated Potassium levels. ??For accurate Potassium quantification in these patients send serum separator tube (gold top) for subsequent determinations. ??Contact the Clinical Chemistry Laboratory if there are any questions. Chloride 98 98 - 107 mmol/L [facility] Carbon Dioxide 21(L) 22 - 31 mmol/L [facility] Anion Gap 15 5 - 15 mmol/L [facility] Calcium 9.6 8.5 - 10.5 mg/dL [facility] Est Glomerular Filtration Rate 49(L) >=60 mL/min/1. 73 m?? [facility] [...] Keating MD CHEMISTRY ORDERABLES Performing Organization Address City/State/[facility] Co de Phone Number [facility] [place] [address] * Duplex Study Visceral Arteries, Comp (07/05/2023 9:46 AM EDT) VB Text Report Department: Vascular Surgery Lab Patient: [id number] (LOIDA ROQUE) CPT: [id number] Referring Physician: TERRENCE KEATING ?? Phone: Indications: [...] ?Bi-Triphasic ?101 ?11 ?? Hepatic Artery ? [place]-Biphasic ? 123 ?23 ?? Splenic Artery ? [place]-Biphasic ? 122 ?24 ?? Inf Mes Artery [...] 5:05 AM EDT) Neutrophil % 63.0 % [facility] Neutrophil Absolute 5.59 1.70 - 6.10 x10(3)/[facility] LABORATORY Lymph % 22.4 % [facility] Lymphocytes Abs 2.0 0.9 - 3.2 x10(3)/[facility] Monocyte % 9.7 % [facility] Monocyte Abs 0.9 0.3 - 0.9 x10(3)/[facility] LABORATORY Eos % 4.1 % [facility] Eosinophils Abs 0.4 0.0 - 0.4 x10(3)/[facility] LABOR[facility]ORY Basophil % 0.6 % [facility] Baso Absolute 0.0 0.0 - 0.1 x10(3)/[facility] LABORATORY Immature Gran % 0.20 % [facility] Comment: Immature granulocytes(IG's)percentage and absolute count will include metamyelocytes, myelocytes, and promyelocytes. Blood smears from CBCs yielding IG's will be scanned manually for concordance. If this scan disagrees with the automated IG or if promyelocytes are noted, a manual differential will be performed. Immature Gran Absolute 0.02 0.00 - 0.04 x10(3)/[facility] LAB[facility]ATORY Blood 07/05/2023 5:05 AM EDT 07/05/2023 5:17 AM EDT Narrative Resulting Agency Comment Spec In Lab Terrence Keating MD HEMATOLOGY ORDERABLE S Performing Organization Address City/[facility]/ZIP Co de Phone Number [facility] [place] [address] * (ABNORMAL) Hemogram (07/05/2023 5:05 AM EDT) White Blood Cell 8.9 4.0 - 9.5 x10(3)/mc L [facility] Red Blood Cell 4.42 4.00 - 5.21 x10(6)/mc L [facility] Hemoglobin 13.7 11.7 - 15.5 g/dL [facility] Hematocrit 41.4 35.7 - 45.8 % [facility] Mean Cell Volume 93.7 82.6 - 94.4 fL [facility] Mean Cell Hemoglobin 31.0 27.1 - 32.0 pg [facility] Mean Cell Hemoglobin Concentration 33.1 31.7 - 35.0 g/dL [facility] Platelet 245 145 - 357 x10(3)/mc L [facility] RDW Standard Deviation 47.1(H) 37.0 - 46.0 fL [facility] RDW coefficient of variation 13.7 11.5 - 14.1 % [facility] Mean Platelet Volume 10.8 7.6 - 12.9 fL [facility] NRBC% auto 0.0 % [facility] NRBC Absolute 0.000 0.000 - 0.000 x10(3)/mc L [facility] Blood 07/05/2023 5:05 AM EDT 07/05/2023 5:17 AM EDT Narrative Resulting Agency Comment Spec In Lab Terrence Keating MD HEMATOLOGY ORDERABLE S [facility] [place] [address] * Heparin (unfractionated) Level (07/05/2023 5:05 AM EDT) UF Heparin 0.35 IU/mL [facility] [...] Lab Ailyn Irvin MD HEMATOLOGY ORDERABLE S [facility] [place] [address] * (ABNORMAL) Basic Metabolic Panel (non-fasting) (07/05/2023 5:05 AM EDT) [facility] Glucose 114 65 - 199 mg/dL [facility] Comment:Diabetes: >=200 mg/d L plus symptoms Blood Urea Nitrogen 19(H) 8 - 18 mg/dL [facility] Creatinine 1.51(H) 0.70 - 1.20 mg/dL [facility] Sodium 134(L) 135 - 145 mmol/L [facility] Potassium 3.8 3.5 - 5.0 mmol/L [facility] Comment: Please note: ??Patients with WBC >100,000 may have falsely elevated Potassium levels. ??For accurate Potassium quantification in these patients send serum separator tube (gold top) for subsequent determinations. ??Contact the Clinical Chemistry Laboratory if there are any questions. Chloride 97(L) 98 - 107 mmol/L [facility] Carbon Dioxide 25 22 - 31 mmol/L [facility] Anion Gap 12 5 - 15 mmol/L [facility] Calcium 10.0 8.5 - 10.5 mg/dL [facility] Est Glomerular Filtration Rate 41(L) >=60 mL/min/1. 73 m?? [facility] [...] City/[facility]/ZIP Co de Phone Number [facility] [place] [address] * (ABNORMAL) Phosphorus (07/05/2023 5:05 AM EDT) Phosphorus 5.0(H) 2.5 - 4.5 mg/dL [facility] Blood 07/05/2023 5:05 AM EDT 07/05/2023 5:17 AM EDT Narrative Resulting Agency Comment Spec In Lab Eufemia Copeland MD CHEMISTRY ORDERABL ES [facility] [place] [address] * Magnesium (07/05/2023 5:05 AM EDT) Magnesium 1.01 0.69 - 1.07 mmol/L [facility] Blood 07/05/2023 5:05 AM EDT 07/05/2023 5:17 AM EDT Narrative Resulting Agency Comment Spec In Lab Eufemia Copeland MD CHEMISTRY ORDERABL ES Performing Organization Address [facility] Co de Phone Number [facility] [place] [address] * EKG 12 Lead (07/04/2023 11:41 AM EDT) Ventricular rate 76 BPM MUSE SYSTEM Atrial Rate 76 BPM MUSE SYSTEM P-R Interval 174 ms MUSE SYSTEM QRS Duration 88 ms MUSE SYSTEM Q-T Interval 450 ms MUSE SYSTEM QTC Calculated (Bezet) 506 ms MUSE SYSTEM Calculated P [place] 36 degrees MUSE SYSTEM Calculated R [place] 35 degrees MUSE SYSTEM Calculated T [place] 37 degrees MUSE SYSTEM INTERPRETATION Normal sinus [...] 1 AM EDT 07/05/2023 6:21 AM EDT Lsia Beck MD ECG ORDERABLES Performing Organization Address [facility] Co de Phone Number MUSE SYSTEM * Differential, Automated (07/04/2023 3:47 AM EDT) Neutrophil % 63.5 % [facility] Neutrophil Absolute 5.19 1.70 - 6.10 x10(3)/[facility] Lymph % 24.4 % [facility] Lymphocytes Abs 2.0 0.9 - 3.2 x10(3)/[facility] Monocyte % 8.1 % [facility] Monocyte Abs 0.7 0.3 - 0.9 x10(3)/[facility] Eos % 3.4 % [facility] Eosinophils Abs 0.3 0.0 - 0.4 x10(3)/[facility] Basophil % 0.4 % [facility] Baso Absolute 0.0 0.0 - 0.1 x10(3)/[facility] Immature Gran % 0.20 % [facility] Comment: Immature granulocytes(IG's)percentage and absolute [...] Lab Terrence Keating MD HEMATOLOGY ORDERABLE S [facility] [place] [address] * (ABNORMAL) Hemogram (07/04/2023 3:47 AM EDT) White Blood Cell 8.2 4.0 - 9.5 x10(3)/ L [facility] Red Blood Cell 4.26 4.00 - 5.21 x10(6)/ L [facility] Hemoglobin 13.5 11.7 - 15.5 g/dL [facility] Hematocrit 40.0 35.7 - 45.8 % [facility] Mean Cell Volume 93.9 82.6 - 94.4 fL [facility] Mean Cell Hemoglobin 31.7 27.1 - 32.0 pg [facility] Mean Cell Hemoglobin Concentration 33.8 31.7 - 35.0 g/dL [facility] Platelet 219 145 - 357 x10(3)/ L [facility] RDW Standard Deviation 47.0(H) 37.0 - 46.0 fL [facility] RDW coefficient of variation 13.7 11.5 - 14.1 % [facility] Mean Platelet Volume 11.0 7.6 - 12.9 fL [facility] NRBC% auto 0.0 % [facility] NRBC Absolute 0.000 0.000 - 0.000 x10(3)/mc L [facility] Blood 07/04/2023 3:47 AM EDT 07/04/2023 4:15 AM EDT Narrative Resulting Agency Comment Spec In Lab Terrence Keating MD HEMATOLOGY ORDERABLE S Performing Organization Address City/[facility]/ZIP Co de Phone Number [facility] [place] [address] * Heparin (unfractionated) Level (07/04/2023 3:47 AM EDT) UF Heparin 0.44 IU/mL [facility] [...] City/[facility]/ZIP Co de Phone Number [facility] [place] [address] * (ABNORMAL) Basic Metabolic Panel (non-fasting) (07/04/2023 3:47 AM EDT) Glucose 104 65 - 199 mg/dL [facility] Comment:Diabetes: >=200 mg/d L plus symptoms Blood Urea Nitrogen 16 8 - 18 mg/dL [facility] Creatinine 1.28(H) 0.70 - 1.20 mg/dL [facility] Sodium 139 135 - 145 mmol/L [facility] Potassium 3.8 3.5 - 5.0 mmol/L [facility] Comment: Please note: ??Patients with WBC >100,000 may have falsely elevated Potassium levels. ??For accurate Potassium quantification in these patients send serum separator tube (gold top) for subsequent determinations. ??Contact the Clinical Chemistry Laboratory if there are any questions. Chloride 102 98 - 107 mmol/L [facility] Carbon Dioxide 21(L) 22 - 31 mmol/L [facility] Anion Gap 16(H) 5 - 15 mmol/L [facility] Calcium 9.5 8.5 - 10.5 mg/dL [facility] Est Glomerular Filtration Rate 50(L) >=60 mL/min/1. 73 m?? [facility] MD CHEMISTRY ORDERABL ES Performing Organization Address City/State/[facility] Co de Phone Number [facility] [place] [address] * (ABNORMAL) Phosphorus (07/04/2023 3:47 AM EDT) Pathologist [facility] Phosphorus 4.9(H) 2.5 - 4.5 mg/dL [facility] Blood 07/04/2023 3:47 AM EDT 07/04/2023 4:15 AM EDT Narrative Resulting Agency Comment Spec In Lab Eufemia Copeland MD CHEMISTRY ORDERABL ES Performing Organization Address [facility] Co de Phone Number [facility] [place] [address] * Magnesium (07/04/2023 3:47 AM EDT) [facility] Magnesium 1.05 0.69 - 1.07 mmol/L [facility] Blood 07/04/2023 3:47 AM EDT 07/04/2023 4:15 AM EDT Narrative Resulting Agency Comment Spec In Lab Eufemia Copeland MD CHEMISTRY ORDERABL ES Performing Organization Address [facility] Co de Phone Number [facility] [place] [address] * EKG 12 Lead (07/03/2023 9:36 PM EDT) [facility] Ventricular rate 61 BPM MUSE SYSTEM Atrial Rate 61 BPM MUSE SYSTEM P-R Interval 188 ms MUSE SYSTEM QRS Duration 88 ms MUSE SYSTEM Q-T Interval 512 ms MUSE SYSTEM QTC Calculated (Bezet) 515 ms MUSE SYSTEM Calculated P [place] 56 degrees MUSE SYSTEM Calculated R [place] 69 degrees MUSE SYSTEM Calculated T [place] 29 degrees MUSE SYSTEM INTERPRETATION Normal sinus rhythm Possible Lateral infarct (cited on or before 30-JUN-2023) Marked ST abnormality, possible inferior subendocardial injury Prolonged QT Abnormal ECG When compared with ECG of 03-JUL-2023 14:27, Nonspecific T wave abnormality no longer evident in Anterior leads Confirmed by MD Henderson Katharine ([email or web address]) on 07/05/2023 6:21:08 AM MUSE SYSTEM 07/03/2023 9:36 PM EDT 07/05/2023 6:21 AM EDT Lisa Beck MD ECG ORDERABLES MUSE SYSTEM * Magnesium (07/03/2023 6:00 PM EDT) Magnesium 0.89 0.69 - 1.07 mmol/L [facility] Blood 07/03/2023 6:00 PM EDT 07/03/2023 6:07 PM EDT Narrative Resulting Agency Comment Spec In Lab Lino Calles MD CHEMISTRY ORDERABLES Performing Organization Address City/[facility]/ZIP Co de Phone Number [facility] [place] [address] * (ABNORMAL) Basic Metabolic Panel (non-fasting) (07/03/2023 6:00 PM EDT) Glucose 116 65 - 199 mg/dL [facility] Comment:Diabetes: >=200 mg/d L plus symptoms Blood Urea Nitrogen 16 8 - 18 mg/dL [facility] Creatinine 1.37(H) 0.70 - 1.20 mg/dL [facility] Sodium 137 135 - 145 mmol/L [facility] Potassium 4.1 3.5 - 5.0 mmol/L [facility] Comment: Please note: ??Patients with WBC >100,000 may have falsely elevated Potassium levels. ??For accurate Potassium quantification in these patients send serum separator tube (gold top) for subsequent determinations. ??Contact the Clinical Chemistry Laboratory if there are any questions. Chloride 102 98 - 107 mmol/L [facility] Carbon Dioxide 21(L) 22 - 31 mmol/L [facility] Anion Gap 14 5 - 15 mmol/L [facility] Calcium 9.5 8.5 - 10.5 mg/dL [facility] Est Glomerular Filtration Rate 46(L) >=60 mL/min/1. 73 m?? [facility] [...] In Lab Lino Calles MD CHEMISTRY ORDERABLES [facility] [place] [address] * XR Chest One View (07/03/2023 3:18 PM EDT) [employer] WORKSTATION ID [id number] RAD Anatomical Region Laterality Modality Chest N/A Digital Radiogra phy Impressions 07/03/2023 3:27 PM EDT No pulmonary edema or pleural effusion Thank you for letting us participate in the care of this patient. ??If you are a health care provider and have any questions regarding this report, please contact the number below. ??For patients who have questions please contact the health residential care officer that requested your imaging first. ? Electronically signed by: Itz Hayward MD, [facility] ??([phone]), at 07/03/2023 3:27 PM Narrative 07/03/2023 3:27 [...] patients who have questions please contactthe health residential care officer that requested your imaging first. Lino Calles MD IMG DX ORDERABLES * Arterial Duplex Leg, Unil (07/03/2023 9:34 AM EDT) VB Text Report Department: Vascular Surgery Lab Patient: [id number] (LOIDA ROQUE) CPT: 81112 Referring Physician: LINO CALLES ?? Phone: Indications: [...] 3:07 AM EDT) Neutrophil % 67.2 % [facility] Neutrophil Absolute 5.51 1.70 - 6.10 x10(3)/[facility] Lymph % 20.7 % [facility] Lymphocytes Abs 1.7 0.9 - 3.2 x10(3)/[facility] Monocyte % 7.7 % [facility] Monocyte Abs 0.6 0.3 - 0.9 x10(3)/[facility] Eos % 3.7 % [facility] Eosinophils Abs 0.3 0.0 - 0.4 x10(3)/[facility] Basophil % 0.5 % [facility] Baso Absolute 0.0 0.0 - 0.1 x10(3)/[facility] Immature Gran % 0.20 % [facility] Comment: Immature granulocytes(IG's)percentage and absolute [...] Lab Terrence Keating MD HEMATOLOGY ORDERABLE S [facility] [place] [address] * (ABNORMAL) Hemogram (07/03/2023 3:07 AM EDT) White Blood Cell 8.2 4.0 - 9.5 x10(3)/ L [facility] Red Blood Cell 3.97(L) 4.00 - 5.21 x10(6)/mc L [facility] Hemoglobin 12.5 11.7 - 15.5 g/dL [facility] Hematocrit 38.5 35.7 - 45.8 % [facility] Mean Cell Volume 97.0(H) 82.6 - 94.4 fL [facility] Mean Cell Hemoglobin 31.5 27.1 - 32.0 pg [facility] Mean Cell Hemoglobin Concentration 32.5 31.7 - 35.0 g/dL [facility] Platelet 203 145 - 357 x10(3)/mc L [facility] RDW Standard Deviation 49.6(H) 37.0 - 46.0 fL [facility] RDW coefficient of variation 13.7 11.5 - 14.1 % [facility] Mean Platelet Volume 10.8 7.6 - 12.9 fL [facility] NRBC% auto 0.0 % [facility] NRBC Absolute 0.000 0.000 - 0.000 x10(3)/mc L [facility] Blood 07/03/2023 3:07 AM EDT 07/03/2023 3:15 AM EDT Narrative Resulting Agency Comment Spec In Lab Terrence Keating MD HEMATOLOGY ORDERABLE S Performing Organization Address City/[facility]/ZIP Co de Phone Number [facility] [place] [address] * Heparin (unfractionated) Level (07/03/2023 3:07 AM EDT) UF Heparin 0.49 IU/mL [facility] [...] City/[facility]/ZIP Co de Phone Number [facility] [place] [address] * (ABNORMAL) Basic Metabolic Panel (non-fasting) (07/03/2023 3:07 AM EDT) Glucose 104 65 - 199 mg/dL [facility] Comment:Diabetes: >=200 mg/d L plus symptoms Blood Urea Nitrogen 16 8 - 18 mg/dL [facility] Creatinine 1.20 0.70 - 1.20 mg/dL [facility] Sodium 138 135 - 145 mmol/L [facility] Potassium 4.2 3.5 - 5.0 mmol/L [facility] Comment: Please note: ??Patients with WBC >100,000 may have falsely elevated Potassium levels. ??For accurate Potassium quantification in these patients send serum separator tube (gold top) for subsequent determinations. ??Contact the Clinical Chemistry Laboratory if there are any questions. Chloride 107 98 - 107 mmol/L [facility] Carbon Dioxide 20(L) 22 - 31 mmol/L [facility] Anion Gap 11 5 - 15 mmol/L [facility] Calcium 8.8 8.5 - 10.5 mg/dL [facility] Est Glomerular Filtration Rate 54(L) >=60 mL/min/1. 73 m?? [facility] [...] Lab Eufemia Copeland MD CHEMISTRY ORDERABL ES [facility] [place] [address] * Phosphorus (07/03/2023 3:07 AM EDT) Phosphorus 3.6 2.5 - 4.5 mg/dL [facility] Blood 07/03/2023 3:07 AM EDT 07/03/2023 3:15 AM EDT Narrative Resulting Agency Comment Spec In Lab Eufemia Copeland MD CHEMISTRY ORDERABL ES Performing Organization Address [facility] Co de Phone Number [facility] [place] [address] * Magnesium (07/03/2023 3:07 AM EDT) Magnesium 0.93 0.69 - 1.07 mmol/L [facility] Blood 07/03/2023 3:07 AM EDT 07/03/2023 3:15 AM EDT Narrative Resulting Agency Comment Spec In Lab Eufemia Copeland MD CHEMISTRY ORDERABL ES Performing Organization Address [facility] Co de Phone Number [facility] [place] [address] * Heparin (unfractionated) Level (07/02/2023 8:58 PM EDT) Pathologist [facility] UF Heparin 0.60 IU/mL [facility] [...] Lab Lino Calles MD HEMATOLOGY ORDERABLE S [facility] [place] [address] * VS Arteriogram Mesenteric Vascular Surgery (07/02/2023 [...] anesthetic: 10 cc 1% lidocaine Heparin: Yes [id number] ?? Units Protamine: No ??mg Antibiotics: Ancef [...] We exchanged the sheath for a 7 [place] horse trekking guide steerable sheath over a stiff wire. ??A Glidewire and Kumpe catheter were used to selectively cannulate the superior mesenteric artery. ??Direct angiography of the superior mesenteric artery was performed, confirming the results of the nonselective aortography performed. ??The lesion was predilated with a 4 mm x 40 mm [place] balloon, and then a 6 mm [...] 3:58 AM EDT) Neutrophil % 61.3 % [facility] Neutrophil Absolute 4.67 1.70 - 6.10 x10(3)/[facility] Lymph % 27.6 % [facility] Lymphocytes Abs 2.1 0.9 - 3.2 x10(3)/[facility] Monocyte % 6.4 % [facility] Monocyte Abs 0.5 0.3 - 0.9 x10(3)/[facility] Eos % 3.9 % [facility] Eosinophils Abs 0.3 0.0 - 0.4 x10(3)/[facility] Basophil % 0.5 % [facility] Baso Absolute 0.0 0.0 - 0.1 x10(3)/[facility] Immature Gran % 0.30 % [facility] Comment: Immature granulocytes(IG's)percentage and absolute [...] Lab Terrence Keating MD HEMATOLOGY ORDERABLE S [facility] [place] [address] * (ABNORMAL) Hemogram (07/02/2023 3:58 AM EDT) White Blood Cell 7.6 4.0 - 9.5 x10(3)/mc L [facility] Red Blood Cell 4.12 4.00 - 5.21 x10(6)/mc L [facility] Hemoglobin 12.9 11.7 - 15.5 g/dL [facility] Hematocrit 39.5 35.7 - 45.8 % [facility] Mean Cell Volume 95.9(H) 82.6 - 94.4 fL [facility] Mean Cell Hemoglobin 31.3 27.1 - 32.0 pg [facility] Mean Cell Hemoglobin Concentration 32.7 31.7 - 35.0 g/dL [facility] Platelet 200 145 - 357 x10(3)/ L [facility] RDW Standard Deviation 47.4(H) 37.0 - 46.0 fL [facility] RDW coefficient of variation 13.3 11.5 - 14.1 % [facility] Mean Platelet Volume 10.8 7.6 - 12.9 fL [facility] NRBC% auto 0.0 % [facility] NRBC Absolute 0.000 0.000 - 0.000 x10(3)/mc L [facility] Blood 07/02/2023 3:58 AM EDT 07/02/2023 4:14 AM EDT Narrative Resulting Agency Comment Spec In Lab Terrence Keating MD HEMATOLOGY ORDERABLE S Performing Organization Address [facility] Co de Phone Number [facility] [place] [address] * Heparin (unfractionated) Level (07/02/2023 3:58 AM EDT) UF Heparin 0.57 IU/mL [facility] [...] City/[facility]/ZIP Co de Phone Number [facility] [place] [address] * (ABNORMAL) Basic Metabolic Panel (non-fasting) (07/02/2023 3:58 AM EDT) Glucose 96 65 - 199 mg/dL [facility] Comment:Diabetes: >=200 mg/d L plus symptoms Blood Urea Nitrogen 15 8 - 18 mg/dL [facility] Creatinine 1.21(H) 0.70 - 1.20 mg/dL [facility] Sodium 133(L) 135 - 145 mmol/L [facility] Potassium 4.1 3.5 - 5.0 mmol/L [facility] Comment: Please note: ??Patients with WBC >100,000 may have falsely elevated Potassium levels. ??For accurate Potassium quantification in these patients send serum separator tube (gold top) for subsequent determinations. ??Contact the Clinical Chemistry Laboratory if there are any questions. Chloride 104 98 - 107 mmol/L [facility] Carbon Dioxide 21(L) 22 - 31 mmol/L [facility] Anion Gap 8 5 - 15 mmol/L [facility] Calcium 8.8 8.5 - 10.5 mg/dL [facility] Est Glomerular Filtration Rate 53(L) >=60 mL/min/1. 73 m?? [facility] [...] Lab Eufemia Copeland MD CHEMISTRY ORDERABL ES [facility] [place] [address] * Phosphorus (07/02/2023 3:58 AM EDT) Phosphorus 3.8 2.5 - 4.5 mg/dL [facility] Blood 07/02/2023 3:58 AM EDT 07/02/2023 4:14 AM EDT Narrative Resulting Agency Comment Spec In Lab Eufemia Copeland MD CHEMISTRY ORDERABL ES Performing Organization Address [facility] [place] [address] * Magnesium (07/02/2023 3:58 AM EDT) Magnesium 0.95 0.69 - 1.07 mmol/L [facility] Blood 07/02/2023 3:58 AM EDT 07/02/2023 4:14 AM EDT Narrative Resulting Agency Comment Spec In Lab Eufemia Copeland MD CHEMISTRY ORDERABL ES Performing Organization Address [facility] de Phone Number [facility] [place] [address] * EKG 12 Lead (07/01/2023 12:08 PM EDT) Ventricular rate 48 BPM MUSE SYSTEM Atrial Rate 48 BPM MUSE SYSTEM P-R Interval 192 ms MUSE SYSTEM QRS Duration 92 ms MUSE SYSTEM Q-T Interval 474 ms MUSE SYSTEM QTC Calculated (Bezet) 423 ms MUSE SYSTEM Calculated P [place] 32 degrees MUSE SYSTEM Calculated R [place] 45 degrees MUSE SYSTEM Calculated T [place] 0 degrees MUSE SYSTEM INTERPRETATION Sinus bradycardia [...] Keating MD ECG ORDERABLES Performing Organization Address [facility]/ZIP Co de Phone Number MUSE SYSTEM * Differential, Automated (07/01/2023 2:56 AM EDT) Neutrophil % 50.5 % [facility] Neutrophil Absolute 3.47 1.70 - 6.10 x10(3)/[facility] Lymph % 36.5 % [facility] Lymphocytes Abs 2.5 0.9 - 3.2 x10(3)/[facility] Monocyte % 7.7 % [facility] Monocyte Abs 0.5 0.3 - 0.9 x10(3)/[facility] Eos % 4.5 % [facility] Eosinophils Abs 0.3 0.0 - 0.4 x10(3)/[facility] Basophil % 0.7 % [facility] Baso Absolute 0.0 0.0 - 0.1 x10(3)/[facility] Immature Gran % 0.10 % [facility] Comment: Immature granulocytes(IG's)percentage and absolute [...] Lab Terrence Keating MD HEMATOLOGY ORDERABLE S [facility] [place] [address] * (ABNORMAL) Hemogram (07/01/2023 2:56 AM EDT) White Blood Cell 6.9 4.0 - 9.5 x10(3)/ L [facility] Red Blood Cell 4.04 4.00 - 5.21 x10(6)/mc L [facility] Hemoglobin 12.8 11.7 - 15.5 g/dL [facility] Hematocrit 39.0 35.7 - 45.8 % [facility] Mean Cell Volume 96.5(H) 82.6 - 94.4 fL [facility] Mean Cell Hemoglobin 31.7 27.1 - 32.0 pg [facility] Mean Cell Hemoglobin Concentration 32.8 31.7 - 35.0 g/dL [facility] Platelet 224 145 - 357 x10(3)/mc L [facility] RDW Standard Deviation 47.8(H) 37.0 - 46.0 fL [facility] RDW coefficient of variation 13.3 11.5 - 14.1 % [facility] Mean Platelet Volume 11.1 7.6 - 12.9 fL [facility] NRBC% auto 0.0 % [facility] NRBC Absolute 0.000 0.000 - 0.000 x10(3)/mc L [facility] Blood 07/01/2023 2:56 AM EDT 07/01/2023 3:22 AM EDT Narrative Resulting Agency Comment Spec In Lab Terrence Keating MD HEMATOLOGY ORDERABLE S Performing Organization Address City/State/[facility] Co de Phone Number [facility] [place] [address] * Heparin (unfractionated) Level (07/01/2023 2:56 AM EDT) UF Heparin 0.56 IU/mL [facility] [...] Lab Ailyn Irvin MD HEMATOLOGY ORDERABLE S [facility] [place] [address] * (ABNORMAL) Basic Metabolic Panel (non-fasting) (07/01/2023 2:56 AM EDT) Glucose 95 65 - 199 mg/dL [facility] Comment:Diabetes: >=200 mg/d L plus symptoms Blood Urea Nitrogen 16 8 - 18 mg/dL [facility] Creatinine 1.21(H) 0.70 - 1.20 mg/dL [facility] Sodium 137 135 - 145 mmol/L [facility] Potassium 4.1 3.5 - 5.0 mmol/L [facility] Comment: Please note: ??Patients with WBC >100,000 may have falsely elevated Potassium levels. ??For accurate Potassium quantification in these patients send serum separator tube (gold top) for subsequent determinations. ??Contact the Clinical Chemistry Laboratory if there are any questions. Chloride 105 98 - 107 mmol/L [facility] Carbon Dioxide 22 22 - 31 mmol/L [facility] Anion Gap 10 5 - 15 mmol/L [facility] Calcium 9.0 8.5 - 10.5 mg/dL [facility] Est Glomerular Filtration Rate 53(L) >=60 mL/min/1. 73 m?? [facility] [...] CHEMISTRY ORDERABL ES Performing Organization Address [facility] Co de Phone Number [facility] [place] [address] * Phosphorus (07/01/2023 2:56 AM EDT) Phosphorus 4.1 2.5 - 4.5 mg/dL [facility] Blood 07/01/2023 2:56 AM EDT 07/01/2023 3:22 AM EDT Narrative Resulting Agency Comment Spec In Lab Eufemia Copeland MD CHEMISTRY ORDERABL ES Performing Organization Address [facility] Co de Phone Number [facility] [place] [address] * Magnesium (07/01/2023 2:56 AM EDT) Magnesium 0.95 0.69 - 1.07 mmol/L [facility] Blood 07/01/2023 2:56 AM EDT 07/01/2023 3:22 AM EDT Narrative Resulting Agency Comment Spec In Lab Eufemia Copeland MD CHEMISTRY ORDERABL ES Performing Organization Address [facility] Co de Phone Number [facility] [place] [address] * Heparin (unfractionated) Level (06/30/2023 9:24 AM EDT) [facility] UF Heparin 0.62 IU/mL [facility] [...] Lab Ailyn Irvin MD HEMATOLOGY ORDERABLE S [facility] [place] [address] * Differential, Automated (06/30/2023 3:14 AM EDT) [facility] Neutrophil % 49.5 % [facility] Neutrophil Absolute 3.96 1.70 - 6.10 x10(3)/[facility] Lymph % 36.6 % [facility] Lymphocytes Abs 2.9 0.9 - 3.2 x10(3)/[facility] Monocyte % 8.6 % [facility] Monocyte Abs 0.7 0.3 - 0.9 x10(3)/[facility] Eos % 4.1 % [facility] Eosinophils Abs 0.3 0.0 - 0.4 x10(3)/[facility] Basophil % 0.8 % [facility] Baso Absolute 0.1 0.0 - 0.1 x10(3)/[facility] Immature Gran % 0.40 % [facility] Comment: Immature granulocytes(IG's)percentage and absolute [...] Lab Terrence Keating MD HEMATOLOGY ORDERABLE S [facility] [place] [address] * Hemogram (06/30/2023 3:14 AM EDT) White Blood Cell 8.0 4.0 - 9.5 x10(3)/[facility] Red Blood Cell 4.22 4.00 - 5.21 x10(6)/[facility] Hemoglobin 13.1 11.7 - 15.5 g/dL [facility] Hematocrit 39.5 35.7 - 45.8 % [facility] Mean Cell Volume 93.6 82.6 - 94.4 fL [facility] Mean Cell Hemoglobin 31.0 27.1 - 32.0 pg [facility] Mean Cell Hemoglobin Concentration 33.2 31.7 - 35.0 g/dL [facility] Platelet 235 145 - 357 x10(3)/[facility] RDW Standard Deviation 45.3 37.0 - 46.0 fL [facility] RDW coefficient of variation 13.3 11.5 - 14.1 % [facility] Mean Platelet Volume 11.0 7.6 - 12.9 fL [facility] NRBC% auto 0.0 % [facility] NRBC Absolute 0.000 0.000 - 0.000 x10(3)/mcL [facility] Blood 06/30/2023 3:14 AM EDT 06/30/2023 3:23 AM EDT Narrative Resulting Agency Comment Spec In Lab Terrence Keating MD HEMATOLOGY ORDERABLE S Performing Organization Address City/[facility]/ZIP Co de Phone Number [facility] [place] [address] * Heparin (unfractionated) Level (06/30/2023 3:14 AM EDT) UF Heparin 0.70 IU/mL [facility] [...] MD HEMATOLOGY ORDERABLE S Performing Organization Address [facility]/ZIP Co de Phone Number [facility] [place] [address] * (ABNORMAL) Basic Metabolic Panel (non-fasting) (06/30/2023 3:14 AM EDT) Glucose 103 65 - 199 mg/dL [facility] Comment:Diabetes: >=200 mg/d L plus symptoms Blood Urea Nitrogen 18 8 - 18 mg/dL [facility] Creatinine 1.22(H) 0.70 - 1.20 mg/dL [facility] Sodium 137 135 - 145 mmol/L [facility] Potassium 3.8 3.5 - 5.0 mmol/L [facility] Comment: Please note: ??Patients with WBC >100,000 may have falsely elevated Potassium levels. ??For accurate Potassium quantification in these patients send serum separator tube (gold top) for subsequent determinations. ??Contact the Clinical Chemistry Laboratory if there are any questions. Chloride 104 98 - 107 mmol/L [facility] Carbon Dioxide 23 22 - 31 mmol/L [facility] Anion Gap 10 5 - 15 mmol/L [facility] Calcium 9.1 8.5 - 10.5 mg/dL [facility] Est Glomerular Filtration Rate 53(L) >=60 mL/min/1. 73 m?? [facility] [...] Lab Eufemia Copeland MD CHEMISTRY ORDERABL ES [facility] [place] [address] * Phosphorus (06/30/2023 3:14 AM EDT) Phosphorus 4.4 2.5 - 4.5 mg/dL [facility] Blood 06/30/2023 3:14 AM EDT 06/30/2023 3:23 AM EDT Narrative Resulting Agency Comment Spec In Lab Eufemia Copeland MD CHEMISTRY ORDERABL ES Performing Organization Address [facility] Co de Phone Number [facility] [place] [address] * Magnesium (06/30/2023 3:14 AM EDT) Magnesium 0.94 0.69 - 1.07 mmol/L [facility] Blood 06/30/2023 3:14 AM EDT 06/30/2023 3:23 AM EDT Narrative Resulting Agency Comment Spec In Lab Eufemia Copeland MD CHEMISTRY ORDERABL ES Performing Organization Address [facility] de Phone Number [facility] [place] [address] * Heparin (unfractionated) Level (06/29/2023 8:47 PM EDT) UF Heparin 0.75 IU/mL [facility] [...] MD HEMATOLOGY ORDERABLE S Performing Organization Address [facility]/ZIP Co de Phone Number [facility] [place] [address] * EKG 12 Lead (06/29/2023 12:55 PM EDT) Ventricular rate 53 BPM MUSE SYSTEM Atrial Rate 53 BPM MUSE SYSTEM P-R Interval 196 ms MUSE SYSTEM QRS Duration 90 ms MUSE SYSTEM Q-T Interval 564 ms MUSE SYSTEM QTC Calculated (Bezet) 529 ms MUSE SYSTEM Calculated P [place] 30 degrees MUSE SYSTEM Calculated R [place] 53 degrees MUSE SYSTEM Calculated T [place] 5 degrees MUSE SYSTEM INTERPRETATION Sinus bradycardia Marked ST abnormality, possible inferior subendocardial injury Prolonged QT Abnormal ECG When compared with ECG of 26-JUN-2023 06:04, Nonspecific T wave abnormality no longer evident in Anterolateral leads QT has lengthened Confirmed by MD Petey, Kia ([id number]) on 06/29/2023 8:34:43 PM MUSE SYSTEM 06/29/2023 12:5 5 PM EDT 06/29/2023 8:34 PM EDT Terrence Keating MD ECG ORDERABLES MUSE SYSTEM * (ABNORMAL) Heparin (unfractionated) Level (06/29/2023 11:34 AM EDT) Pathologist [facility] UF Heparin 1.41(Crit ical) IU/mL [facility] Comment: Critical Result called by [...] Lab Ailyn Irvin MD HEMATOLOGY ORDERABLE S [facility] [place] [address] * Differential, Automated (06/29/2023 2:39 AM EDT) Neutrophil % 53.8 % [facility] Neutrophil Absolute 4.46 1.70 - 6.10 x10(3)/[facility] Lymph % 33.5 % [facility] Lymphocytes Abs 2.8 0.9 - 3.2 x10(3)/[facility] Monocyte % 8.3 % [facility] Monocyte Abs 0.7 0.3 - 0.9 x10(3)/[facility] Eos % 3.5 % [facility] Eosinophils Abs 0.3 0.0 - 0.4 x10(3)/[facility] Basophil % 0.5 % [facility] Baso Absolute 0.0 0.0 - 0.1 x10(3)/[facility] Immature Gran % 0.40 % [facility] Comment: Immature granulocytes(IG's)percentage and absolute [...] Lab Terrence Keating MD HEMATOLOGY ORDERABLE S [facility] [place] [address] * Hemogram (06/29/2023 2:39 AM EDT) [facility] White Blood Cell 8.3 4.0 - 9.5 x10(3)/[facility] Red Blood Cell 4.19 4.00 - 5.21 x10(6)/[facility] Hemoglobin 13.2 11.7 - 15.5 g/dL [facility] Hematocrit 38.9 35.7 - 45.8 % [facility] Mean Cell Volume 92.8 82.6 - 94.4 fL [facility] Mean Cell Hemoglobin 31.5 27.1 - 32.0 pg [facility] Mean Cell Hemoglobin Concentration 33.9 31.7 - 35.0 g/dL [facility] Platelet 237 145 - 357 x10(3)/[facility] RDW Standard Deviation 45.3 37.0 - 46.0 [facility] RDW coefficient of variation 13.3 11.5 - 14.1 % [facility] Mean Platelet Volume 11.4 7.6 - 12.9 [facility] NRBC% auto 0.0 % [facility] NRBC Absolute 0.000 0.000 - 0.000 x10(3)/[facility] Blood 06/29/2023 2:39 AM EDT 06/29/2023 3:33 AM EDT Narrative Resulting Agency Comment Spec In Lab Terrence Keating MD HEMATOLOGY ORDERABLE S [facility] [place] [address] * (ABNORMAL) Heparin (unfractionated) Level (06/29/2023 2:39 AM EDT) Pathologist [facility] UF Heparin 1.77(Crit ical) IU/mL [facility] Comment: [...] Lab Ailyn Irvin MD HEMATOLOGY ORDERABLE S [facility] [place] [address] * (ABNORMAL) Basic Metabolic Panel (non-fasting) (06/29/2023 2:39 AM EDT) Pathologist [facility] Glucose 100 65 - 199 mg/dL [facility] Comment:Diabetes: >=200 mg/d L plus symptoms Blood Urea Nitrogen 21(H) 8 - 18 mg/dL [facility] Creatinine 1.17 0.70 - 1.20 mg/dL [facility] Sodium 138 135 - 145 mmol/L [facility] Potassium 3.9 3.5 - 5.0 mmol/L [facility] Comment: Please note: ??Patients with WBC >100,000 may have falsely elevated Potassium levels. ??For accurate Potassium quantification in these patients send serum separator tube (gold top) for subsequent determinations. ??Contact the Clinical Chemistry Laboratory if there are any questions. Chloride 105 98 - 107 mmol/L [facility] Carbon Dioxide 22 22 - 31 mmol/L [facility] Anion Gap 11 5 - 15 mmol/L [facility] Calcium 9.1 8.5 - 10.5 mg/dL [facility] Est Glomerular Filtration Rate 55(L) >=60 mL/min/1. 73 m?? [facility] [...] CHEMISTRY ORDERABL ES Performing Organization Address [facility] Co de Phone Number [facility] [place] [address] * Phosphorus (06/29/2023 2:39 AM EDT) Phosphorus 4.0 2.5 - 4.5 mg/dL [facility] Blood 06/29/2023 2:39 AM EDT 06/29/2023 3:33 AM EDT Narrative Resulting Agency Comment Spec In Lab Eufemia Copeland MD CHEMISTRY ORDERABL ES Performing Organization Address [facility]/ZIP Co de Phone Number [facility] [place] [address] * Magnesium (06/29/2023 2:39 AM EDT) Magnesium 0.92 0.69 - 1.07 mmol/L [facility] Blood 06/29/2023 2:39 AM EDT 06/29/2023 3:33 AM EDT Narrative Resulting Agency Comment Spec In Lab Eufemia Copeland MD CHEMISTRY ORDERABL ES [facility] [place] [address] * US Abdomen Limited (06/28/2023 12:22 PM EDT) WORKSTATION ID [id number] [facility] Anatomical Region Laterality Modality Abdomen Ultrasound 06/28/2023 [...] who have questions, please contact the health residential care officer that requested your imaging first. ?Sigrid Owens, E Pyrotechnic Assembler Electronically Signed Final Report ?? 06/28/2023 02:08 pm Narrative 06/28/2023 2:08 PM EDT Abdominal ? (Signed Final 06/28/2023 02:08 pm) PATIENT INFO: ID #: ? [id number] ?: ??[birth year] (53 yrs)(F) Name: ? LOIDA ?Visit Date: 06/28/2023 12:20 pm ? ROHAN PERFORMED BY: Attending: ?Graciela JOHN, Sigrid Munoz Resident: ? Karo JOHN, Rafaela Performed By: ? Rick , ??Deena Referred By: ?AILYN IRVIN Location: ? [place] SERVICE(S) PROVIDED: UABDLIM - Abdominal Limited Survey Single ? 19001 Organ or Quadrant - [id number] INDICATIONS: RUQ pain, R/o Gall bladder colic, [...] 06/28/2023 02:08 pm) PATIENT INFO: ID #: [id number] : [birth year] (53 yrs)(F) Name: LOIDA Visit Date: 06/28/2023 12:20 pm RHOAN PERFORMED BY: Attending: Sigrid Owens MD Resident: Rafaela Huddleston MD Performed By: Deena Cabrera RDMS Referred By: AILYN IRVIN Location: [facility] SERVICE(S) PROVIDED: UABDLIM - Abdominal Limited Survey Single 84014 Organ or Quadrant - [id number] INDICATIONS: RUQ pain, R/o Gall bladder colic, [...] who have questions, please contact the health residential care officer that requested your imaging first. Sigrid Owens, E Pyrotechnic Assembler Electronically Signed Final Report 06/28/2023 02:08 pm Ailyn Irvin MD IMG US GEN ORDERABLE S * Duplex Study Visceral Arteries, Comp (06/28/2023 10:19 AM EDT) VB Text Report Department: Vascular Surgery Lab Patient: [id number] (LOIDA ROQUE) CPT: [id number] Referring Physician: HEIDY SULLIVAN ?? Indications: abdominal pain, ? patency/stenosi s Findings: Unilateral ? Waveform ? PSV cm/s ??EDV cm/s ??Patent ?? Dary Visceral Aorta ? 80 ?16 ? Celiac Artery, Proximal ??[place]-Biphasic ? 119 ?26 ? Celiac Artery, Mid ? [place]-Biphasic ? 115 ?21 ? Celiac Artery, Distal ? No Vis ?? Sup Mes Artery Proximal ??Biphasic ?427 ?91 ? Sup Mes Artery Middle ?[place]-Biphasic ? 100 ?17 ? Sup Mes Artery Distal ?[place]-Biphasic ?64 ?15 ? Hepatic Artery ?No Vis [...] 1:52 AM EDT) Neutrophil % 55.3 % [facility] Neutrophil Absolute 4.46 1.70 - 6.10 x10(3)/[facility] Lymph % 30.6 % [facility] Lymphocytes Abs 2.5 0.9 - 3.2 x10(3)/[facility] Monocyte % 8.8 % [facility] Monocyte Abs 0.7 0.3 - 0.9 x10(3)/[facility] Eos % 4.6 % [facility] Eosinophils Abs 0.4 0.0 - 0.4 x10(3)/[facility] Basophil % 0.5 % [facility] Baso Absolute 0.0 0.0 - 0.1 x10(3)/[facility] Immature Gran % 0.20 % [facility] Comment: Immature granulocytes(IG's)percentage and absolute [...] Lab Terrence Keating MD HEMATOLOGY ORDERABLE S [facility] [place] [address] * Hemogram (06/28/2023 1:52 AM EDT) White Blood Cell 8.1 4.0 - 9.5 x10(3)/[facility] Red Blood Cell 4.30 4.00 - 5.21 x10(6)/[facility] Hemoglobin 13.4 11.7 - 15.5 g/dL [facility] Hematocrit 40.6 35.7 - 45.8 % [facility] Mean Cell Volume 94.4 82.6 - 94.4 fL [facility] Mean Cell Hemoglobin 31.2 27.1 - 32.0 pg [facility] Mean Cell Hemoglobin Concentration 33.0 31.7 - 35.0 g/dL [facility] Platelet 238 145 - 357 x10(3)/[facility] RDW Standard Deviation 45.7 37.0 - 46.0 [facility] RDW coefficient of variation 13.2 11.5 - 14.1 % [facility] Mean Platelet Volume 10.8 7.6 - 12.9 fL [facility] NRBC% auto 0.0 % [facility] NRBC Absolute 0.000 0.000 - 0.000 x10(3)/mcL [facility] Blood 06/28/2023 1:52 AM EDT 06/28/2023 2:05 AM EDT Narrative Resulting Agency Comment Spec In Lab Terrence Keating MD HEMATOLOGY ORDERABLE S [facility] [place] [address] * (ABNORMAL) Basic Metabolic Panel (non-fasting) (06/28/2023 1:52 AM EDT) Glucose 101 65 - 199 mg/dL [facility] Comment:Diabetes: >=200 mg/d L plus symptoms Blood Urea Nitrogen 24(H) 8 - 18 mg/dL [facility] Creatinine 1.21(H) 0.70 - 1.20 mg/dL [facility] Sodium 138 135 - 145 mmol/L [facility] Potassium 4.0 3.5 - 5.0 mmol/L [facility] Comment: Please note: ??Patients with WBC >100,000 may have falsely elevated Potassium levels. ??For accurate Potassium quantification in these patients send serum separator tube (gold top) for subsequent determinations. ??Contact the Clinical Chemistry Laboratory if there are any questions. Chloride 105 98 - 107 mmol/L [facility] Carbon Dioxide 21(L) 22 - 31 mmol/L [facility] Anion Gap 12 5 - 15 mmol/L [facility] Calcium 9.0 8.5 - 10.5 mg/dL [facility] Est Glomerular Filtration Rate 53(L) >=60 mL/min/1. 73 m?? [facility] [...] CHEMISTRY ORDERABL ES Performing Organization Address [facility] Co de Phone Number [facility] [place] [address] * Phosphorus (06/28/2023 1:52 AM EDT) Phosphorus 4.5 2.5 - 4.5 mg/dL [facility] Blood 06/28/2023 1:52 AM EDT 06/28/2023 2:05 AM EDT Narrative Resulting Agency Comment Spec In Lab Eufemia Copeland MD CHEMISTRY ORDERABL ES Performing Organization Address [facility] Co de Phone Number [facility] [place] [address] * Magnesium (06/28/2023 1:52 AM EDT) Magnesium 0.93 0.69 - 1.07 mmol/L [facility] Blood 06/28/2023 1:52 AM EDT 06/28/2023 2:05 AM EDT Narrative Resulting Agency Comment Spec In Lab Eufemia Copeland MD CHEMISTRY ORDERABL ES Performing Organization Address [facility] Co de Phone Number [facility] [place] [address] * (ABNORMAL) Basic Metabolic Panel (non-fasting) (06/27/2023 8:06 PM EDT) Glucose 94 65 - 199 mg/dL [facility] Comment:Diabetes: >=200 mg/d L plus symptoms Blood Urea Nitrogen 24(H) 8 - 18 mg/dL [facility] Creatinine 1.28(H) 0.70 - 1.20 mg/dL [facility] Sodium 141 135 - 145 mmol/L [facility] Potassium 4.3 3.5 - 5.0 mmol/L [facility] Comment: Please note: ??Patients with WBC >100,000 may have falsely elevated Potassium levels. ??For accurate Potassium quantification in these patients send serum separator tube (gold top) for subsequent determinations. ??Contact the Clinical Chemistry Laboratory if there are any questions. Chloride 106 98 - 107 mmol/L [facility] Carbon Dioxide 24 22 - 31 mmol/L [facility] Anion Gap 11 5 - 15 mmol/L [facility] Calcium 9.3 8.5 - 10.5 mg/dL [facility] Est Glomerular Filtration Rate 50(L) >=60 mL/min/1. 73 m?? [facility] [...] In Lab Ailyn Irvin MD CHEMISTRY ORDERABLES [facility] [place] [address] * (ABNORMAL) Hepatic Function Panel (06/27/2023 4:34 AM EDT) [facility] Protein, Total 6.4 6.1 - 8.0 g/dL [facility] Albumin 3.8 3.2 - 5.2 g/dL [facility] Aspartate Aminotransferase 21 0 - 30 unit/L [facility] Alanine Aminotransferase 22 0 - 30 unit/L [facility] Alkaline Phosphatase 56 35 - 105 unit/L [facility] Bilirubin, Total <0.2(L) 0.2 - 1.3 mg/dL [facility] Bilirubin, Direct <0.1 0.0 - 0.3 mg/dL [facility] Blood Venous Draw / Unknown 06/27/2023 4:34 AM EDT 06/27/2023 4:53 AM EDT Narrative Resulting Agency Comment Spec In Lab Ailyn Irvin MD CHEMISTRY ORDERABLES Performing Organization Address City/State/[facility] Co de Phone Number [facility] [place] [address] * Differential, Automated (06/27/2023 4:34 AM EDT) [facility] Neutrophil % 52.7 % [facility] Neutrophil Absolute 4.01 1.70 - 6.10 x10(3)/[facility] Lymph % 33.8 % [facility] Lymphocytes Abs 2.6 0.9 - 3.2 x10(3)/[facility] Monocyte % 8.8 % [facility] Monocyte Abs 0.7 0.3 - 0.9 x10(3)/[facility] Eos % 3.8 % [facility] Eosinophils Abs 0.3 0.0 - 0.4 x10(3)/[facility] Basophil % 0.5 % [facility] Baso Absolute 0.0 0.0 - 0.1 x10(3)/[facility] Immature Gran % 0.40 % [facility] Comment: Immature granulocytes(IG's)percentage and absolute [...] Lab Terrence Keating MD HEMATOLOGY ORDERABLE S [facility] [place] [address] * Hemogram (06/27/2023 4:34 AM EDT) White Blood Cell 7.6 4.0 - 9.5 x10(3)/[facility] Red Blood Cell 4.15 4.00 - 5.21 x10(6)/[facility] Hemoglobin 12.9 11.7 - 15.5 g/dL [facility] Hematocrit 39.0 35.7 - 45.8 % [facility] Mean Cell Volume 94.0 82.6 - 94.4 fL [facility] Mean Cell Hemoglobin 31.1 27.1 - 32.0 pg [facility] Mean Cell Hemoglobin Concentration 33.1 31.7 - 35.0 g/dL [facility] Platelet 245 145 - 357 x10(3)/[facility] RDW Standard Deviation 45.2 37.0 - 46.0 fL [facility] RDW coefficient of variation 13.2 11.5 - 14.1 % [facility] Mean Platelet Volume 11.2 7.6 - 12.9 fL [facility] NRBC% auto 0.0 % [facility] NRBC Absolute 0.000 0.000 - 0.000 x10(3)/mcL [facility] Blood 06/27/2023 4:34 AM EDT 06/27/2023 4:51 AM EDT Narrative Resulting Agency Comment Spec In Lab Terrence Keating MD HEMATOLOGY ORDERABLE S [facility] [place] [address] * (ABNORMAL) Basic Metabolic Panel (non-fasting) (06/27/2023 4:34 AM EDT) Glucose 99 65 - 199 mg/dL [facility] Comment:Diabetes: >=200 mg/d L plus symptoms Blood Urea Nitrogen 26(H) 8 - 18 mg/dL [facility] Creatinine 1.22(H) 0.70 - 1.20 mg/dL [facility] Sodium 138 135 - 145 mmol/L [facility] Potassium 3.9 3.5 - 5.0 mmol/L [facility] Comment: Please note: ??Patients with WBC >100,000 may have falsely elevated Potassium levels. ??For accurate Potassium quantification in these patients send serum separator tube (gold top) for subsequent determinations. ??Contact the Clinical Chemistry Laboratory if there are any questions. Chloride 105 98 - 107 mmol/L [facility] Carbon Dioxide 22 22 - 31 mmol/L [facility] Anion Gap 11 5 - 15 mmol/L [facility] Calcium 9.1 8.5 - 10.5 mg/dL [facility] Est Glomerular Filtration Rate 53(L) >=60 mL/min/1. 73 m?? [facility] ORDERABL ES Performing Organization Address [facility] Co de Phone Number [facility] [place] [address] * (ABNORMAL) Phosphorus (06/27/2023 4:34 AM EDT) Phosphorus 4.7(H) 2.5 - 4.5 mg/dL [facility] Blood 06/27/2023 4:34 AM EDT 06/27/2023 4:51 AM EDT Narrative Resulting Agency Comment Spec In Lab Eufemia Copeland MD CHEMISTRY ORDERABL ES Performing Organization Address [facility] Co de Phone Number [facility] [place] [address] * Magnesium (06/27/2023 4:34 AM EDT) Magnesium 0.90 0.69 - 1.07 mmol/L [facility] Blood 06/27/2023 4:34 AM EDT 06/27/2023 4:51 AM EDT Narrative Resulting Agency Comment Spec In Lab Eufemia Copeland MD CHEMISTRY ORDERABL ES Performing Organization Address [facility] Co de Phone Number [facility] [place] [address] * (ABNORMAL) Basic Metabolic Panel (non-fasting) (06/26/2023 4:58 PM EDT) Glucose 106 65 - 199 mg/dL [facility] Comment:Diabetes: >=200 mg/d L plus symptoms Blood Urea Nitrogen 24(H) 8 - 18 mg/dL [facility] Creatinine 1.23(H) 0.70 - 1.20 mg/dL [facility] Sodium 138 135 - 145 mmol/L [facility] Potassium 4.2 3.5 - 5.0 mmol/L [facility] Comment: Please note: ??Patients with WBC >100,000 may have falsely elevated Potassium levels. ??For accurate Potassium quantification in these patients send serum separator tube (gold top) for subsequent determinations. ??Contact the Clinical Chemistry Laboratory if there are any questions. Chloride 104 98 - 107 mmol/L [facility] Carbon Dioxide 21(L) 22 - 31 mmol/L [facility] Anion Gap 13 5 - 15 mmol/L [facility] Calcium 9.1 8.5 - 10.5 mg/dL [facility] Est Glomerular Filtration Rate 52(L) >=60 mL/min/1. 73 m?? [facility] In Lab Ailyn Irvin MD CHEMISTRY ORDERABLES [facility] [place] [address] * Urinalysis Microscopic Exam (06/26/2023 11:09 AM EDT) RBC, Urine 0 0 - 4 /HPF [facility] WBC, Urine 3 0 - 5 /HPF [facility] Squamous Epithelial Cells Raw Data, Urine 1 <=4 /HPF [facility] Hyaline Casts, Urine 1 0 - 2 /LPF [facility] Clean Catch Urine 06/26/2023 11:09 AM EDT 06/26/2023 5:45 PM EDT Narrative Resulting Agency Comment Spec In Lab Ailyn Irvin MD URINE ORDERABLES [facility] [place] [address] * (ABNORMAL) Urinalysis with reflex Culture (06/26/2023 11:09 AM EDT) Glucose, Urine Dipstick Negative Negative mg/dL [facility] Protein, Urine Dipstick Negative Negative mg/dL [facility] Bilirubin, Urine Dipstick Negative Negative mg/dL [facility] Comment: Clinical correlation required for positive Urine Bilirubin results as false positive may occur with some drugs and drug related products. If a false positive is suspected a serum total bilirubin should be considered if clinically indicated. Urobilinogen, Urine Dipstick Normal Normal mg/dL [facility] pH, Urn (dipstick) 6.0 5.0 - 8.0 [facility] Blood, Urine Dipstick Negative Negative mg/dL [facility] Ketone, Urine Dipstick Negative Negative mg/dL [facility] Nitrite, Urine Dipstick Negative Negative [facility] Leukocytes, Urine Dipstick Trace(A) Negative [facility] Appearance, Urine Dipstick Clear Clear [facility] Specific [place] Urine Automated 1.013 1.005 - 1.030 [facility] Color, Urine Dipstick Yellow Yellow [facility] Reflex to Culture No [facility] Clean Catch Urine 06/26/2023 11:09 AM EDT 06/26/2023 5:45 PM EDT Narrative Resulting Agency Comment Spec In Lab Ailyn Irvin MD URINE ORDERABLES [facility] [place] [address] * EKG 12 Lead (06/26/2023 6:04 AM EDT) Ventricular rate 46 BPM MUSE SYSTEM Atrial Rate 46 BPM MUSE SYSTEM P-R Interval 204 ms MUSE SYSTEM QRS Duration 90 ms MUSE SYSTEM Q-T Interval 466 ms MUSE SYSTEM QTC Calculated (Bezet) 407 ms MUSE SYSTEM Calculated P [place] 38 degrees MUSE SYSTEM Calculated R [place] 48 degrees MUSE SYSTEM Calculated T [place] 13 degrees MUSE SYSTEM INTERPRETATION Sinus bradycardia Nonspecific ST and T wave abnormality Abnormal ECG When compared with ECG of 23-JUN-2023 09:54, No significant change was found Confirmed by MD Dalia, Willy Huerta ([id number]) on 06/29/2023 6:09:20 AM MUSE SYSTEM 06/26/2023 6:04 AM EDT 06/29/2023 6:09 AM EDT Eufemia Copeland MD ECG ORDERABLES MUSE SYSTEM * Differential, Automated (06/26/2023 4:06 AM EDT) Neutrophil % 55.3 % [facility] Neutrophil Absolute 4.63 1.70 - 6.10 x10(3)/[facility] Lymph % 32.6 % [facility] Lymphocytes Abs 2.7 0.9 - 3.2 x10(3)/[facility] Monocyte % 8.2 % [facility] Monocyte Abs 0.7 0.3 - 0.9 x10(3)/[facility] Eos % 3.2 % [facility] Eosinophils Abs 0.3 0.0 - 0.4 x10(3)/[facility] Basophil % 0.5 % [facility] Baso Absolute 0.0 0.0 - 0.1 x10(3)/[facility] Immature Gran % 0.20 % [facility] Comment: Immature granulocytes(IG's)percentage and absolute [...] Lab Terrence Keating MD HEMATOLOGY ORDERABLE S [facility] [place] [address] * (ABNORMAL) Hemogram (06/26/2023 4:06 AM EDT) White Blood Cell 8.4 4.0 - 9.5 x10(3)/[facility] Red Blood Cell 4.52 4.00 - 5.21 x10(6)/[facility] Hemoglobin 14.0 11.7 - 15.5 g/dL [facility] Hematocrit 43.6 35.7 - 45.8 % [facility] Mean Cell Volume 96.5(H) 82.6 - 94.4 fL [facility] Mean Cell Hemoglobin 31.0 27.1 - 32.0 pg [facility] Mean Cell Hemoglobin Concentration 32.1 31.7 - 35.0 g/dL [facility] Platelet 258 145 - 357 x10(3)/ L [facility] RDW Standard Deviation 46.7(H) 37.0 - 46.0 fL [facility] RDW coefficient of variation 13.2 11.5 - 14.1 % [facility] Mean Platelet Volume 11.1 7.6 - 12.9 fL [facility] NRBC% auto 0.0 % [facility] NRBC Absolute 0.000 0.000 - 0.000 x10(3)/mc L [facility] Blood 06/26/2023 4:06 AM EDT 06/26/2023 4:18 AM EDT Narrative Resulting Agency Comment Spec In Lab Terrence Keating MD HEMATOLOGY ORDERABLE S [facility] [place] [address] * (ABNORMAL) Basic Metabolic Panel (non-fasting) (06/26/2023 4:06 AM EDT) Glucose 100 65 - 199 mg/dL [facility] Comment:Diabetes: >=200 mg/d L plus symptoms Blood Urea Nitrogen 25(H) 8 - 18 mg/dL [facility] Creatinine 1.24(H) 0.70 - 1.20 mg/dL [facility] Sodium 135 135 - 145 mmol/L [facility] Potassium 4.2 3.5 - 5.0 mmol/L [facility] Comment: Please note: ??Patients with WBC >100,000 may have falsely elevated Potassium levels. ??For accurate Potassium quantification in these patients send serum separator tube (gold top) for subsequent determinations. ??Contact the Clinical Chemistry Laboratory if there are any questions. Chloride 104 98 - 107 mmol/L [facility] Carbon Dioxide 19(L) 22 - 31 mmol/L [facility] Anion Gap 12 5 - 15 mmol/L [facility] Calcium 9.6 8.5 - 10.5 mg/dL [facility] Est Glomerular Filtration Rate 52(L) >=60 mL/min/1. 73 m?? [facility] CHEMISTRY ORDERABL ES Performing Organization Address [facility] Co de Phone Number [facility] [place] [address] * Phosphorus (06/26/2023 4:06 AM EDT) Phosphorus 4.3 2.5 - 4.5 mg/dL [facility] Blood 06/26/2023 4:06 AM EDT 06/26/2023 4:18 AM EDT Narrative Resulting Agency Comment Spec In Lab Eufemia Copeland MD CHEMISTRY ORDERABL ES Performing Organization Address [facility] Co de Phone Number [facility] [place] [address] * Magnesium (06/26/2023 4:06 AM EDT) Magnesium 0.96 0.69 - 1.07 mmol/L [facility] Blood 06/26/2023 4:06 AM EDT 06/26/2023 4:18 AM EDT Narrative Resulting Agency Comment Spec In Lab Eufemia Copeland MD CHEMISTRY ORDERABL ES Performing Organization Address [facility] [place] [address] * Differential, Automated (06/25/2023 1:50 AM EDT) Pathologist [facility] Neutrophil % 56.2 % [facility] Neutrophil Absolute 4.06 1.70 - 6.10 x10(3)/[facility] Lymph % 30.5 % [facility] Lymphocytes Abs 2.2 0.9 - 3.2 x10(3)/[facility] Monocyte % 8.7 % [facility] Monocyte Abs 0.6 0.3 - 0.9 x10(3)/[facility] Eos % 3.9 % [facility] Eosinophils Abs 0.3 0.0 - 0.4 x10(3)/[facility] Basophil % 0.6 % [facility] Baso Absolute 0.0 0.0 - 0.1 x10(3)/[facility] Immature Gran % 0.10 % [facility] Comment: Immature granulocytes(IG's)percentage and absolute [...] Lab Terrence Keating MD [place] [address] * Hemogram (06/25/2023 1:50 AM EDT) Pathologist [facility] White Blood Cell 7.2 4.0 - 9.5 x10(3)/[facility] Red Blood Cell 4.57 4.00 - 5.21 x10(6)/[facility] Hemoglobin 14.4 11.7 - 15.5 g/dL [facility] Hematocrit 42.9 35.7 - 45.8 % [facility] Mean Cell Volume 93.9 82.6 - 94.4 fL [facility] Mean Cell Hemoglobin 31.5 27.1 - 32.0 pg [facility] Mean Cell Hemoglobin Concentration 33.6 31.7 - 35.0 g/dL [facility] Platelet 241 145 - 357 x10(3)/[facility] RDW Standard Deviation 44.7 37.0 - 46.0 [facility] RDW coefficient of variation 13.2 11.5 - 14.1 % [facility] Mean Platelet Volume 11.5 7.6 - 12.9 [facility] NRBC% auto 0.0 % [facility] NRBC Absolute 0.000 0.000 - 0.000 x10(3)/[facility] Blood 06/25/2023 1:50 AM EDT 06/25/2023 2:16 AM EDT Narrative Resulting Agency Comment Spec In Lab Terrence Keating MD HEMATOLOGY ORDERABLE S [facility] [place] [address] * (ABNORMAL) Basic Metabolic Panel (non-fasting) (06/25/2023 1:50 AM EDT) Glucose 99 65 - 199 mg/dL [facility] Comment:Diabetes: >=200 mg/d L plus symptoms Blood Urea Nitrogen 20(H) 8 - 18 mg/dL [facility] Creatinine 1.59(H) 0.70 - 1.20 mg/dL [facility] Sodium 139 135 - 145 mmol/L [facility] Potassium 3.4(L) 3.5 - 5.0 mmol/L [facility] Comment: Please note: ??Patients with WBC >100,000 may have falsely elevated Potassium levels. ??For accurate Potassium quantification in these patients send serum separator tube (gold top) for subsequent determinations. ??Contact the Clinical Chemistry Laboratory if there are any questions. Chloride 102 98 - 107 mmol/L [facility] Carbon Dioxide 25 22 - 31 mmol/L [facility] Anion Gap 12 5 - 15 mmol/L [facility] Calcium 9.4 8.5 - 10.5 mg/dL [facility] Est Glomerular Filtration Rate 38(L) >=60 mL/min/1. 73 m?? [facility] [...] Lab Eufemia Copeland MD CHEMISTRY ORDERABL ES [facility] [place] [address] * Phosphorus (06/25/2023 1:50 AM EDT) Phosphorus 4.4 2.5 - 4.5 mg/dL [facility] Blood 06/25/2023 1:50 AM EDT 06/25/2023 2:16 AM EDT Narrative Resulting Agency Comment Spec In Lab Eufemia Copeland MD CHEMISTRY ORDERABL ES Performing Organization Address City/[facility]/ZIP Co de Phone Number [facility] [place] [address] * Magnesium (06/25/2023 1:50 AM EDT) [facility] Magnesium 0.99 0.69 - 1.07 mmol/L [facility] Blood 06/25/2023 1:50 AM EDT 06/25/2023 2:16 AM EDT Narrative Resulting Agency Comment Spec In Lab Eufemia Copeland MD CHEMISTRY ORDERABL ES Performing Organization Address [facility] Co de Phone Number [facility] [place] [address] * (ABNORMAL) pro-Brain Natriuretic Peptide (06/24/2023 3:38 AM EDT) [facility] NT-proBNP 1,239(H) <=124 pg/mL [facility] Blood Venous Draw / Unknown 06/24/2023 3:38 AM EDT 06/24/2023 3:49 AM EDT Narrative Resulting Agency Comment Spec In Lab Ailyn Irvin MD CHEMISTRY ORDERABLES Performing Organization Address City/[facility]/ZIP Co de Phone Number [facility] [place] [address] * Differential, Automated (06/24/2023 3:38 AM EDT) [facility] Neutrophil % 51.6 % [facility] Neutrophil Absolute 3.54 1.70 - 6.10 x10(3)/[facility] Lymph % 36.0 % [facility] Lymphocytes Abs 2.5 0.9 - 3.2 x10(3)/[facility] Monocyte % 7.8 % [facility] Monocyte Abs 0.5 0.3 - 0.9 x10(3)/[facility] Eos % 3.6 % [facility] Eosinophils Abs 0.2 0.0 - 0.4 x10(3)/[facility] Basophil % 0.7 % [facility] Baso Absolute 0.0 0.0 - 0.1 x10(3)/[facility] Immature Gran % 0.30 % [facility] Comment: Immature granulocytes(IG's)percentage and absolute [...] Lab Terrence Keating MD HEMATOLOGY ORDERABLE S [facility] [place] [address] * Hemogram (06/24/2023 3:38 AM EDT) White Blood Cell 6.9 4.0 - 9.5 x10(3)/[facility] Red Blood Cell 4.36 4.00 - 5.21 x10(6)/[facility] Hemoglobin 13.6 11.7 - 15.5 g/dL [facility] Hematocrit 40.7 35.7 - 45.8 % [facility] Mean Cell Volume 93.3 82.6 - 94.4 fL [facility] Mean Cell Hemoglobin 31.2 27.1 - 32.0 pg [facility] Mean Cell Hemoglobin Concentration 33.4 31.7 - 35.0 g/dL [facility] Platelet 220 145 - 357 x10(3)/[facility] RDW Standard Deviation 44.5 37.0 - 46.0 [facility] RDW coefficient of variation 13.0 11.5 - 14.1 % [facility] Mean Platelet Volume 10.8 7.6 - 12.9 [facility] NRBC% auto 0.0 % [facility] NRBC Absolute 0.000 0.000 - 0.000 x10(3)/[facility] Blood 06/24/2023 3:38 AM EDT 06/24/2023 3:49 AM EDT Narrative Resulting Agency Comment Spec In Lab Terrence Keating MD HEMATOLOGY ORDERABLE S Performing Organization Address [facility]/ZIP Co de Phone Number [facility] [place] [address] * Heparin (unfractionated) Level (06/24/2023 3:38 AM EDT) UF Heparin 0.44 IU/mL [facility] [...] City/[facility]/ZIP Co de Phone Number [facility] [place] [address] * (ABNORMAL) Basic Metabolic Panel (non-fasting) (06/24/2023 3:38 AM EDT) Glucose 96 65 - 199 mg/dL [facility] Comment:Diabetes: >=200 mg/d L plus symptoms Blood Urea Nitrogen 20(H) 8 - 18 mg/dL [facility] Creatinine 1.14 0.70 - 1.20 mg/dL [facility] Sodium 138 135 - 145 mmol/L [facility] Potassium 4.2 3.5 - 5.0 mmol/L [facility] Comment: Please note: ??Patients with WBC >100,000 may have falsely elevated Potassium levels. ??For accurate Potassium quantification in these patients send serum separator tube (gold top) for subsequent determinations. ??Contact the Clinical Chemistry Laboratory if there are any questions. Chloride 104 98 - 107 mmol/L [facility] Carbon Dioxide 21(L) 22 - 31 mmol/L [facility] Anion Gap 13 5 - 15 mmol/L [facility] Calcium 9.1 8.5 - 10.5 mg/dL [facility] Est Glomerular Filtration Rate 57(L) >=60 mL/min/1. 73 m?? [facility] [...] Lab Eufemia Copeland MD CHEMISTRY ORDERABL ES [facility] [place] [address] * Phosphorus (06/24/2023 3:38 AM EDT) Phosphorus 4.1 2.5 - 4.5 mg/dL [facility] Blood 06/24/2023 3:38 AM EDT 06/24/2023 3:49 AM EDT Narrative Resulting Agency Comment Spec In Lab Eufemia Copeland MD CHEMISTRY ORDERABL ES Performing Organization Address [facility] Co de Phone Number [facility] [place] [address] * Magnesium (06/24/2023 3:38 AM EDT) Magnesium 0.96 0.69 - 1.07 mmol/L [facility] Blood 06/24/2023 3:38 AM EDT 06/24/2023 3:49 AM EDT Narrative Resulting Agency Comment Spec In Lab Eufemia Copeland MD CHEMISTRY ORDERABL ES Performing Organization Address [facility] de Phone Number [facility] [place] [address] * Heparin (unfractionated) Level (06/23/2023 9:24 PM EDT) UF Heparin 0.51 IU/mL [facility] [...] MD HEMATOLOGY ORDERABLE S Performing Organization Address [facility]/State/ZIP Co de Phone Number [facility] [place] [address] * Duplex Study Visceral Arteries, Comp (06/23/2023 3:36 PM EDT) VB Text Report Department: Vascular Surgery Lab Patient: [id number] (LOIDA ROQUE) CPT: [id number] Referring Physician: AILYN IRVIN ?? Phone: Indications: [...] Irvin MD VASCULAR ORDERABLES Performing Organization Address [facility] de Phone Number [id number] * Heparin (unfractionated) Level (06/23/2023 3:01 PM EDT) UF Heparin 0.90 IU/mL [facility] [...] MD HEMATOLOGY ORDERABLE S Performing Organization Address [facility] Co de Phone Number [facility] [place] [address] * EKG 12 Lead (06/23/2023 9:54 AM EDT) Ventricular rate 48 BPM MUSE SYSTEM Atrial Rate 48 BPM MUSE SYSTEM P-R Interval 192 ms MUSE SYSTEM QRS Duration 92 ms MUSE SYSTEM Q-T Interval 462 ms MUSE SYSTEM QTC Calculated (Bezet) 412 ms MUSE SYSTEM Calculated P [place] 21 degrees MUSE SYSTEM Calculated R [place] 20 degrees MUSE SYSTEM Calculated T [place] 16 degrees MUSE SYSTEM INTERPRETATION Sinus bradycardia [...] 4:12 AM EDT) Neutrophil % 52.8 % [facility] Neutrophil Absolute 4.30 1.70 - 6.10 x10(3)/[facility] Lymph % 33.9 % [facility] Lymphocytes Abs 2.8 0.9 - 3.2 x10(3)/[facility] Monocyte % 8.3 % [facility] Monocyte Abs 0.7 0.3 - 0.9 x10(3)/[facility] Eos % 3.9 % [facility] Eosinophils Abs 0.3 0.0 - 0.4 x10(3)/[facility] Basophil % 0.7 % [facility] Baso Absolute 0.1 0.0 - 0.1 x10(3)/[facility] Immature Gran % 0.40 % [facility] Comment: Immature granulocytes(IG's)percentage and absolute [...] Lab Terrence Keating MD HEMATOLOGY ORDERABLE S [facility] [place] [address] * Hemogram (06/23/2023 4:12 AM EDT) White Blood Cell 8.2 4.0 - 9.5 x10(3)/[facility] Red Blood Cell 4.59 4.00 - 5.21 x10(6)/[facility] Hemoglobin 14.3 11.7 - 15.5 g/dL [facility] Hematocrit 43.1 35.7 - 45.8 % [facility] Mean Cell Volume 93.9 82.6 - 94.4 fL [facility] Mean Cell Hemoglobin 31.2 27.1 - 32.0 pg [facility] Mean Cell Hemoglobin Concentration 33.2 31.7 - 35.0 g/dL [facility] Platelet 233 145 - 357 x10(3)/[facility] RDW Standard Deviation 44.2 37.0 - 46.0 [facility] RDW coefficient of variation 13.0 11.5 - 14.1 % [facility] Mean Platelet Volume 11.3 7.6 - 12.9 [facility] NRBC% auto 0.0 % [facility] NRBC Absolute 0.000 0.000 - 0.000 x10(3)/[facility] Blood 06/23/2023 4:12 AM EDT 06/23/2023 4:38 AM EDT Narrative Resulting Agency Comment Spec In Lab Terrence Keating MD HEMATOLOGY ORDERABLE S Performing Organization Address [facility]/ZIP Co de Phone Number [facility] [place] [address] * (ABNORMAL) Heparin (unfractionated) Level (06/23/2023 4:12 AM EDT) UF Heparin 1.95(Crit ical) IU/mL [facility] Comment: Critical Result called by [...] MD HEMATOLOGY ORDERABLE S Performing Organization Address [facility]/ZIP Co de Phone Number [facility] [place] [address] * (ABNORMAL) Basic Metabolic Panel (non-fasting) (06/23/2023 4:12 AM EDT) Glucose 87 65 - 199 mg/dL [facility] Comment:Diabetes: >=200 mg/d L plus symptoms Blood Urea Nitrogen 23(H) 8 - 18 mg/dL [facility] Creatinine 1.08 0.70 - 1.20 mg/dL [facility] Sodium 137 135 - 145 mmol/L [facility] Potassium 3.8 3.5 - 5.0 mmol/L [facility] Comment: Please note: ??Patients with WBC >100,000 may have falsely elevated Potassium levels. ??For accurate Potassium quantification in these patients send serum separator tube (gold top) for subsequent determinations. ??Contact the Clinical Chemistry Laboratory if there are any questions. Chloride 103 98 - 107 mmol/L [facility] Carbon Dioxide 22 22 - 31 mmol/L [facility] Anion Gap 12 5 - 15 mmol/L [facility] Calcium 9.3 8.5 - 10.5 mg/dL [facility] Est Glomerular Filtration Rate 61 >=60 mL/min/1. 73 m?? [facility] Lab Eufemia Copeland MD CHEMISTRY ORDERABL ES [facility] [place] [address] * Phosphorus (06/23/2023 4:12 AM EDT) Phosphorus 4.5 2.5 - 4.5 mg/dL [facility] Blood 06/23/2023 4:12 AM EDT 06/23/2023 4:38 AM EDT Narrative Resulting Agency Comment Spec In Lab Eufemia Copeland MD CHEMISTRY ORDERABL ES Performing Organization Address City/[facility]/ZIP Co de Phone Number [facility] [place] [address] * Magnesium (06/23/2023 4:12 AM EDT) Magnesium 1.03 0.69 - 1.07 mmol/L [facility] Blood 06/23/2023 4:12 AM EDT 06/23/2023 4:38 AM EDT Narrative Resulting Agency Comment Spec In Lab Eufemia Copeland MD CHEMISTRY ORDERABL ES Performing Organization Address [facility] Co de Phone Number [facility] [place] [address] * ECHO LMTD W CONTRAST W LMTD SPEC DOPP COLOR DOPP (06/22/2023 4:25 PM EDT) Anatomical Region Laterality Modality Cardiac Other 06/22/2023 2:49 PM EDT Narrative 06/22/2023 4:42 PM EDT [address] [place] [address] ? Echocardiogram Report Name: LOIDA ROQUE ?Study Date: 06/22/2023 02:49 PM ?Patient Location: L4 [id number] A ??HR: 57 : 1970 ?Height: 162 cm ? Account: [id number] Age: 53 yrs ?Weight: 102 kg Gender: [...] slight decrease in LV systolic function. Procedure Complete-85407. Satisfactory quality. There is normal sinus rhythm. [...] Note Jose Gallegos MD - 06/22/2023 [address] [place] [address] Echocardiogram Report Name: LOIDA ROQUE Study Date: 06/22/2023 02:49 PM Patient Location: [place] [address] A HR:57 : 1970 Height: 162 cmAccount: [id number] Age: 53 yrs Weight: 102 kg Gender: [...] a slightdecrease in LV systolic function. Procedure Complete-[id number]. Satisfactory quality. There is normal sinus rhythm. [...] EDT) Troponin-T, High Sensitivity 22(H) <=14 ng/L [facility] [...] troponin value can be found in the [facility] Laboratory Test Catalog Troponin - [facility] Laboratory Test Catalog Reference: Fourth Gila Definition of Myocardial Infarction. Journal of the [employer] 2018;72:5697-9315 Blood 06/22/2023 2:38 PM EDT 06/22/2023 2:50 PM EDT Narrative Resulting Agency Comment Spec In Lab Ailyn Irvin MD CHEMISTRY ORDERABLES [facility] [place] [address] * Duplex for DVT, Arm, Unilat (06/22/2023 2:24 PM EDT) Pathologist Kavita VB Text Report Department: Vascular Surgery Lab Patient: [id number] (LOIDA ROQUE) CPT: [id number] Referring Physician: AILYN IRVIN ?? Phone: Indications: [...] of Report VASCUBASE 06/22/2023 2:24 PM EDT iAlyn Irvin MD VASCULAR ORDERABLES VASCUBASE * XR [...] who have questions please contact the health residential care officer that requested your imaging first. ? Narrative [...] patients who have questions please contactthe health residential care officer that requested your imaging first. Ailyn Irvin MD IMG DX ORDERABLES * (ABNORMAL) Troponin (06/22/2023 11:24 AM EDT) [facility] Troponin-T, High Sensitivity 22(H) <=14 ng/L [facility] [...] troponin value can be found in the [facility] Laboratory Test Catalog Troponin - [facility] Laboratory Test Catalog Reference: Fourth Gila Definition of Myocardial Infarction. Journal of the [employer] 2018;72:9744-6691 Blood 06/22/2023 11:2 4 AM EDT 06/22/2023 11:44 AM EDT Narrative Resulting Agency Comment Spec In Lab Ailyn Irvin MD CHEMISTRY ORDERABLES Performing Organization Address City/[facility]/ZIP Co de Phone Number [facility] [place] [address] * EKG 12 Lead (06/22/2023 11:13 AM EDT) Ventricular rate 63 BPM MUSE SYSTEM Atrial Rate 63 BPM MUSE SYSTEM P-R Interval 162 ms MUSE SYSTEM QRS Duration 86 ms MUSE SYSTEM Q-T Interval 382 ms MUSE SYSTEM QTC Calculated (Bezet) 390 ms MUSE SYSTEM Calculated P [place] 24 degrees MUSE SYSTEM Calculated R [place] 32 degrees MUSE SYSTEM Calculated T [place] -2 degrees MUSE SYSTEM INTERPRETATION Normal sinus rhythm Septal infarct (cited on or before 22-JUN-2023) Possible Lateral infarct , age undetermined ST & T wave abnormality, consider inferolateral ischemia Abnormal ECG When compared with ECG of 22-JUN-2023 10:55, No significant change was found Confirmed by MD Angelo Danette ([id number]) on 06/22/2023 3:56:31 PM MUSE SYSTEM 06/22/2023 11:1 3 AM EDT 06/22/2023 3:56 PM EDT Ailyn Irvin MD ECG ORDERABLES Performing Organization Address City/[facility]/ZIP Co de Phone Number MUSE SYSTEM * EKG 12 Lead (06/22/2023 10:55 AM EDT) Ventricular rate 56 BPM MUSE SYSTEM Atrial Rate 56 BPM MUSE SYSTEM P-R Interval 168 ms MUSE SYSTEM QRS Duration 88 ms MUSE SYSTEM Q-T Interval 426 ms MUSE SYSTEM QTC Calculated (Bezet) 411 ms MUSE SYSTEM Calculated P [place] 22 degrees MUSE SYSTEM Calculated R [place] 20 degrees MUSE SYSTEM Calculated T [place] 10 degrees MUSE SYSTEM INTERPRETATION Sinus bradycardia Septal infarct , age undetermined ST & T wave abnormality, consider inferolateral ischemia Abnormal ECG When compared with ECG of 21-JUN-2023 10:06, Septal infarct is now Present Confirmed by MD Angelo Danette ([id number]) on 06/22/2023 3:55:53 PM MUSE SYSTEM 06/22/2023 10:5 5 AM EDT 06/22/2023 3:55 PM EDT Ailyn Irvin MD ECG ORDERABLES MUSE SYSTEM * Differential, Automated (06/22/2023 4:34 AM EDT) Neutrophil % 54.4 % [facility] Neutrophil Absolute 4.07 1.70 - 6.10 x10(3)/[facility] LAB[facility]AT[facility] Lymph % 30.6 % [facility] Lymphocytes Abs 2.3 0.9 - 3.2 x10(3)/[facility] Monocyte % 9.9 % [facility] Monocyte Abs 0.7 0.3 - 0.9 x10(3)/[facility] LABORAT[facility] Eos % 4.3 % [facility] Eosinophils Abs 0.3 0.0 - 0.4 x10(3)/[facility] LAB[facility] Basophil % 0.7 % [facility] Baso Absolute 0.0 0.0 - 0.1 x10(3)/[facility] LAB[facility] Immature Gran % 0.10 % [facility] Comment: Immature granulocytes(IG's)percentage and absolute count will include metamyelocytes, myelocytes, and promyelocytes. Blood smears from CBCs yielding IG's will be scanned manually for concordance. If this scan disagrees with the automated IG or if promyelocytes are noted, a manual differential will be performed. Immature Gran Absolute 0.01 0.00 - 0.04 x10(3)/[facility] Blood 06/22/2023 4:34 AM EDT 06/22/2023 4:42 AM EDT Narrative Resulting Agency Comment Spec In Lab Terrence Keating MD HEMATOLOGY ORDERABLE S [facility] [place] [address] * (ABNORMAL) Hemogram (06/22/2023 4:34 AM EDT) White Blood Cell 7.5 4.0 - 9.5 x10(3)/mc L [facility] Red Blood Cell 4.04 4.00 - 5.21 x10(6)/mc L [facility] Hemoglobin 12.8 11.7 - 15.5 g/dL [facility] Hematocrit 39.1 35.7 - 45.8 % [facility] Mean Cell Volume 96.8(H) 82.6 - 94.4 fL [facility] Mean Cell Hemoglobin 31.7 27.1 - 32.0 pg [facility] Mean Cell Hemoglobin Concentration 32.7 31.7 - 35.0 g/dL [facility] Platelet 225 145 - 357 x10(3)/mc L [facility] RDW Standard Deviation 45.9 37.0 - 46.0 [facility] LABORATORY RDW coefficient of variation 13.0 11.5 - 14.1 % [facility] Mean Platelet Volume 10.6 7.6 - 12.9 [facility] LABORATORY NRBC% auto 0.0 % [facility] NRBC Absolute 0.000 0.000 - 0.000 x10(3)/mc L [facility] Blood 06/22/2023 4:34 AM EDT 06/22/2023 4:42 AM EDT Narrative Resulting Agency Comment Spec In Lab Terrence Keating MD HEMATOLOGY ORDERABLE S [facility] [place] [address] * (ABNORMAL) Basic Metabolic Panel (non-fasting) (06/22/2023 4:34 AM EDT) Glucose 94 65 - 199 mg/dL [facility] Comment:Diabetes: >=200 mg/d L plus symptoms Blood Urea Nitrogen 22(H) 8 - 18 mg/dL [facility] Creatinine 1.19 0.70 - 1.20 mg/dL [facility] Sodium 138 135 - 145 mmol/L [facility] Potassium 3.9 3.5 - 5.0 mmol/L [facility] Comment: Please note: ??Patients with WBC >100,000 may have falsely elevated Potassium levels. ??For accurate Potassium quantification in these patients send serum separator tube (gold top) for subsequent determinations. ??Contact the Clinical Chemistry Laboratory if there are any questions. Chloride 102 98 - 107 mmol/L [facility] Carbon Dioxide 19(L) 22 - 31 mmol/L [facility] Anion Gap 17(H) 5 - 15 mmol/L [facility] Calcium 9.4 8.5 - 10.5 mg/dL [facility] Est Glomerular Filtration Rate 54(L) >=60 mL/min/1. 73 m?? [facility] [...] Lab Eufemia Copeland MD CHEMISTRY ORDERABL ES [facility] [place] [address] * (ABNORMAL) Phosphorus (06/22/2023 4:34 AM EDT) Phosphorus 4.9(H) 2.5 - 4.5 mg/dL [facility] Blood 06/22/2023 4:34 AM EDT 06/22/2023 4:42 AM EDT Narrative Resulting Agency Comment Spec In Lab Eufemia Copeland MD CHEMISTRY ORDERABL ES Performing Organization Address [facility] Co de Phone Number [facility] [place] [address] * Magnesium (06/22/2023 4:34 AM EDT) Magnesium 1.02 0.69 - 1.07 mmol/L [facility] Blood 06/22/2023 4:34 AM EDT 06/22/2023 4:42 AM EDT Narrative Resulting Agency Comment Spec In Lab Eufemia Copeland MD CHEMISTRY ORDERABL ES Performing Organization Address [facility] de Phone Number [facility] [place] [address] * CT Abdomen & Pelvis w Contrast [...] who have questions please contact the health residential care officer that requested your imaging first. ? Narrative [...] patients who have questions please contactthe health residential care officer that requested your imaging first. Eufemia Copeland MD IMG CT ORDERABLES * EKG 12 Lead (06/21/2023 10:06 AM EDT) Ventricular rate 51 BPM MUSE SYSTEM Atrial Rate 51 BPM MUSE SYSTEM P-R Interval 176 ms MUSE SYSTEM QRS Duration 92 ms MUSE SYSTEM Q-T Interval 450 ms MUSE SYSTEM QTC Calculated (Bezet) 414 ms MUSE SYSTEM Calculated P [place] 17 degrees MUSE SYSTEM Calculated R [place] 35 degrees MUSE SYSTEM Calculated T [place] 13 degrees MUSE SYSTEM INTERPRETATION Sinus bradycardia [...] Copeland MD ECG ORDERABLES Performing Organization Address City/[facility]/ZIP Co de Phone Number MUSE SYSTEM * (ABNORMAL) Troponin (06/21/2023 9:45 AM EDT) Troponin-T, High Sensitivity 22(H) <=14 ng/L [facility] [...] troponin value can be found in the [facility] Laboratory Test Catalog Troponin - [facility] Test Catalog Reference: Fourth Gila Definition of Myocardial Infarction. Journal of the [employer] 2018;72:1348-3906 Blood 06/21/2023 9:45 AM EDT 06/21/2023 10:08 AM EDT Narrative Resulting Agency Comment Spec In Lab Eufemia Copeland MD CHEMISTRY ORDERABL ES Performing Organization Address [facility]/ZIP Co de Phone Number [facility] [place] [address] * (ABNORMAL) pro-Brain Natriuretic Peptide (06/21/2023 5:58 AM EDT) [facility] NT-proBNP 1,370(H) <=124 pg/mL [facility] [place] Venous Draw / Unknown 06/21/2023 5:58 AM EDT 06/21/2023 7:28 AM EDT Narrative Resulting Agency Comment Spec In Lab Eufemia Copeland MD CHEMISTRY ORDERABL ES Performing Organization Address City/[facility]/ZIP Co de Phone Number [facility] [place] [address] * Potassium (06/21/2023 5:58 AM EDT) [facility] Potassium 4.0 3.5 - 5.0 mmol/L [facility] [...] City/[facility]/ZIP Co de Phone Number [facility] [place] [address] * Differential, Automated (06/21/2023 3:25 AM EDT) [facility] Neutrophil % 54.0 % [facility] Neutrophil Absolute 5.02 1.70 - 6.10 x10(3)/[facility] LABORATORY Lymph % 31.8 % [facility] Lymphocytes Abs 3.0 0.9 - 3.2 x10(3)/[facility] Monocyte % 8.9 % [facility] Monocyte Abs 0.8 0.3 - 0.9 x10(3)/[facility] Eos % 4.2 % [facility] Eosinophils Abs 0.4 0.0 - 0.4 x10(3)/[facility] LAB[facility] Basophil % 0.8 % [facility] Baso Absolute 0.1 0.0 - 0.1 x10(3)/[facility] LABORATORY Immature Gran % 0.30 % [facility] Comment: Immature granulocytes(IG's)percentage and absolute [...] Lab Terrence Keating MD HEMATOLOGY ORDERABLE S [facility] [place] [address] * Hemogram (06/21/2023 3:25 AM EDT) White Blood Cell 9.3 4.0 - 9.5 x10(3)/[facility] LABORATORY Red Blood Cell 4.74 4.00 - 5.21 x10(6)/[facility] Hemoglobin 14.9 11.7 - 15.5 g/dL [facility] Hematocrit 44.2 35.7 - 45.8 % [facility] Mean Cell Volume 93.2 82.6 - 94.4 fL [facility] Mean Cell Hemoglobin 31.4 27.1 - 32.0 pg [facility] Mean Cell Hemoglobin Concentration 33.7 31.7 - 35.0 g/dL [facility] Platelet 279 145 - 357 x10(3)/[facility] LABORATORY RDW Standard Deviation 44.7 37.0 - 46.0 fL [facility] RDW coefficient of variation 13.1 11.5 - 14.1 % [facility] Mean Platelet Volume 11.1 7.6 - 12.9 fL [facility] NRBC% auto 0.0 % [facility] NRBC Absolute 0.000 0.000 - 0.000 x10(3)/[facility] Blood 06/21/2023 3:25 AM EDT 06/21/2023 3:45 AM EDT Narrative Resulting Agency Comment Spec In Lab Terrence Keating MD HEMATOLOGY ORDERABLE S [facility] [place] [address] * (ABNORMAL) Basic Metabolic Panel (non-fasting) (06/21/2023 3:25 AM EDT) Glucose 95 65 - 199 mg/dL [facility] Comment:Diabetes: >=200 mg/d L plus symptoms Blood Urea Nitrogen 27(H) 8 - 18 mg/dL [facility] Creatinine 1.11 0.70 - 1.20 mg/dL [facility] Sodium 138 135 - 145 mmol/L [facility] Potassium Not Perf 3.5 - 5.0 [facility] Comment: Unable to quantitate due [...] questions. Chloride 100 98 - 107 mmol/L [facility] Carbon Dioxide 26 22 - 31 mmol/L [facility] Anion Gap 12 5 - 15 mmol/L [facility] Calcium 9.7 8.5 - 10.5 mg/dL [facility] Est Glomerular Filtration Rate 59(L) >=60 mL/min/1. 73 m?? [facility] [...] [facility]/ZIP Co de Phone Number [facility] [place] [address] * (ABNORMAL) Phosphorus (06/21/2023 3:25 AM EDT) Phosphorus 5.1(H) 2.5 - 4.5 mg/dL [facility] Blood 06/21/2023 3:25 AM EDT 06/21/2023 3:45 AM EDT Narrative Resulting Agency Comment Spec In Lab Eufemia Copeland MD CHEMISTRY ORDERABL ES [facility] [place] [address] * Magnesium (06/21/2023 3:25 AM EDT) Magnesium 1.04 0.69 - 1.07 mmol/L [facility] Blood 06/21/2023 3:25 AM EDT 06/21/2023 3:45 AM EDT Narrative Resulting Agency Comment Spec In Lab Eufemia Copeland MD CHEMISTRY ORDERABL ES [facility] [place] [address] * (ABNORMAL) Differential, Automated (06/20/2023 3:32 AM EDT) Neutrophil % 52.5 % [facility] Neutrophil Absolute 5.28 1.70 - 6.10 x10(3)/mc L [facility] Lymph % 32.4 % [facility] Lymphocytes Abs 3.3(H) 0.9 - 3.2 x10(3)/ L [facility] Monocyte % 9.7 % [facility] Monocyte Abs 1.0(H) 0.3 - 0.9 x10(3)/mc L [facility] Eos % 4.3 % [facility] Eosinophils Abs 0.4 0.0 - 0.4 x10(3)/ L [facility] Basophil % 0.7 % [facility] Baso Absolute 0.1 0.0 - 0.1 x10(3)/mc L [facility] Immature Gran % 0.40 % [facility] Comment: Immature granulocytes(IG's)percentage and absolute count will include metamyelocytes, myelocytes, and promyelocytes. Blood smears from CBCs yielding IG's will be scanned manually for concordance. If this scan disagrees with the automated IG or if promyelocytes are noted, a manual differential will be performed. Immature Gran Absolute 0.04 0.00 - 0.04 x10(3)/mc L [facility] Blood 06/20/2023 3:32 AM EDT 06/20/2023 3:47 AM EDT Narrative Resulting Agency Comment Spec In Lab Terrence Keating MD HEMATOLOGY ORDERABLE S [facility] [place] [address] * (ABNORMAL) Hemogram (06/20/2023 3:32 AM EDT) White Blood Cell 10.1(H) 4.0 - 9.5 x10(3)/mc L [facility] Red Blood Cell 4.57 4.00 - 5.21 x10(6)/mc L [facility] Hemoglobin 14.2 11.7 - 15.5 g/dL [facility] Hematocrit 41.5 35.7 - 45.8 % [facility] Mean Cell Volume 90.8 82.6 - 94.4 fL [facility] Mean Cell Hemoglobin 31.1 27.1 - 32.0 pg [facility] Mean Cell Hemoglobin Concentration 34.2 31.7 - 35.0 g/dL [facility] Platelet 253 145 - 357 x10(3)/mc L [facility] RDW Standard Deviation 43.7 37.0 - 46.0 fL [facility] RDW coefficient of variation 13.2 11.5 - 14.1 % [facility] Mean Platelet Volume 10.8 7.6 - 12.9 fL [facility] NRBC% auto 0.0 % [facility] NRBC Absolute 0.000 0.000 - 0.000 x10(3)/mc L [facility] Blood 06/20/2023 3:32 AM EDT 06/20/2023 3:47 AM EDT Narrative Resulting Agency Comment Spec In Lab Terrence Keating MD HEMATOLOGY ORDERABLE S Performing Organization Address City/[facility]/ZIP Co de Phone Number [facility] [place] [address] * (ABNORMAL) Basic Metabolic Panel (non-fasting) (06/20/2023 3:32 AM EDT) Glucose 99 65 - 199 mg/dL [facility] Comment:Diabetes: >=200 mg/d L plus symptoms Blood Urea Nitrogen 26(H) 8 - 18 mg/dL [facility] Creatinine 1.12 0.70 - 1.20 mg/dL [facility] Sodium 137 135 - 145 mmol/L [facility] Potassium 3.7 3.5 - 5.0 mmol/L [facility] Comment: Please note: ??Patients with WBC >100,000 may have falsely elevated Potassium levels. ??For accurate Potassium quantification in these patients send serum separator tube (gold top) for subsequent determinations. ??Contact the Clinical Chemistry Laboratory if there are any questions. Chloride 102 98 - 107 mmol/L [facility] Carbon Dioxide 22 22 - 31 mmol/L [facility] Anion Gap 13 5 - 15 mmol/L [facility] Calcium 9.4 8.5 - 10.5 mg/dL [facility] Est Glomerular Filtration Rate 58(L) >=60 mL/min/1. 73 m?? [facility] [...] Lab Eufemia Copeland MD CHEMISTRY ORDERABL ES [facility] [place] [address] * Phosphorus (06/20/2023 3:32 AM EDT) Phosphorus 4.3 2.5 - 4.5 mg/dL [facility] Blood 06/20/2023 3:32 AM EDT 06/20/2023 3:47 AM EDT Narrative Resulting Agency Comment Spec In Lab Eufemia Copeland MD CHEMISTRY ORDERABL ES Performing Organization Address City/[facility]/ZIP Co de Phone Number [facility] [place] [address] * Magnesium (06/20/2023 3:32 AM EDT) Magnesium 1.00 0.69 - 1.07 mmol/L [facility] Blood 06/20/2023 3:32 AM EDT 06/20/2023 3:47 AM EDT Narrative Resulting Agency Comment Spec In Lab Eufemia Copeland MD CHEMISTRY ORDERABL ES Performing Organization Address [facility]/ZIP Co de Phone Number [facility] [place] [address] * Phosphorus (06/19/2023 5:26 PM EDT) Phosphorus 4.0 2.5 - 4.5 mg/dL [facility] Blood 06/19/2023 5:26 PM EDT 06/19/2023 5:32 PM EDT Narrative Resulting Agency Comment Spec In Lab Eufemia Copeland MD CHEMISTRY ORDERABL ES Performing Organization Address City/[facility] Co de Phone Number [facility] [place] [address] * Magnesium (06/19/2023 5:26 PM EDT) Magnesium 0.98 0.69 - 1.07 mmol/L [facility] Blood 06/19/2023 5:26 PM EDT 06/19/2023 5:32 PM EDT Narrative Resulting Agency Comment Spec In Lab Eufemia Copeland MD CHEMISTRY ORDERABL ES [facility] [place] [address] * (ABNORMAL) Basic Metabolic Panel (non-fasting) (06/19/2023 5:26 PM EDT) Glucose 105 65 - 199 mg/dL [facility] Comment:Diabetes: >=200 mg/d L plus symptoms Blood Urea Nitrogen 21(H) 8 - 18 mg/dL [facility] Creatinine 1.06 0.70 - 1.20 mg/dL [facility] Sodium 139 135 - 145 mmol/L [facility] Potassium 3.9 3.5 - 5.0 mmol/L [facility] Comment: Please note: ??Patients with WBC >100,000 may have falsely elevated Potassium levels. ??For accurate Potassium quantification in these patients send serum separator tube (gold top) for subsequent determinations. ??Contact the Clinical Chemistry Laboratory if there are any questions. Chloride 103 98 - 107 mmol/L [facility] Carbon Dioxide 22 22 - 31 mmol/L [facility] Anion Gap 14 5 - 15 mmol/L [facility] Calcium 9.5 8.5 - 10.5 mg/dL [facility] Est Glomerular Filtration Rate 62 >=60 mL/min/1. 73 m?? [facility]/ZIP Co de Phone Number [facility] [place] [address] * EKG 12 Lead (06/19/2023 4:24 AM EDT) Ventricular rate 66 BPM MUSE SYSTEM Atrial Rate 66 BPM MUSE SYSTEM P-R Interval 188 ms MUSE SYSTEM QRS Duration 92 ms MUSE SYSTEM Q-T Interval 484 ms MUSE SYSTEM QTC Calculated (Bezet) 507 ms MUSE SYSTEM Calculated P [place] 32 degrees MUSE SYSTEM Calculated R [place] 22 degrees MUSE SYSTEM Calculated T [place] 47 degrees MUSE SYSTEM INTERPRETATION Normal sinus rhythm Nonspecific ST abnormality Prolonged QT Abnormal ECG When compared with ECG of 15-JUN-2023 10:50, No significant change was found Confirmed by MD AKIRA, CINDY ([id number]) on 06/19/2023 2:42:42 PM MUSE SYSTEM 06/19/2023 4:24 AM EDT 06/19/2023 2:42 PM EDT Terrence Keating MD ECG ORDERABLES Performing Organization Address City/[facility]/ZIP Co de Phone Number MUSE SYSTEM * (ABNORMAL) Basic Metabolic Panel (non-fasting) (06/19/2023 3:22 AM EDT) Glucose 101 65 - 199 mg/dL [facility] Comment:Diabetes: >=200 mg/d L plus symptoms Blood Urea Nitrogen 24(H) 8 - 18 mg/dL [facility] Creatinine 1.04 0.70 - 1.20 mg/dL [facility] Sodium 137 135 - 145 mmol/L [facility] questions. Chloride 100 98 - 107 mmol/L [facility] Carbon Dioxide Not Perf - [facility] Comment:Add-on request. Samp le too old to perform test. Anion Gap Unable to Calculate 5 - 15 mmol/L [facility] Calcium 9.4 8.5 - 10.5 mg/dL [facility] Est Glomerular Filtration Rate 64 >=60 mL/min/1 .73 m?? [facility] Comment: [...] Lab Eufemia Copeland MD CHEMISTRY ORDERABL ES [facility] [place] [address] * Differential, Automated (06/19/2023 3:22 AM EDT) Neutrophil % 54.0 % [facility] Neutrophil Absolute 5.08 1.70 - 6.10 x10(3)/[facility] Lymph % 30.7 % [facility] Lymphocytes Abs 2.9 0.9 - 3.2 x10(3)/[facility] Monocyte % 10.0 % [facility] Monocyte Abs 0.9 0.3 - 0.9 x10(3)/[facility] Eos % 4.5 % [facility] Eosinophils Abs 0.4 0.0 - 0.4 x10(3)/[facility] Basophil % 0.6 % [facility] Baso Absolute 0.1 0.0 - 0.1 x10(3)/[facility] Immature Gran % 0.20 % [facility] Comment: Immature granulocytes(IG's)percentage and absolute [...] Lab Terrence Keating MD HEMATOLOGY ORDERABLE S [facility] [place] [address] * Hemogram (06/19/2023 3:22 AM EDT) White Blood Cell 9.4 4.0 - 9.5 x10(3)/[facility] Red Blood Cell 4.48 4.00 - 5.21 x10(6)/[facility] Hemoglobin 13.9 11.7 - 15.5 g/dL [facility] Hematocrit 41.7 35.7 - 45.8 % [facility] Mean Cell Volume 93.1 82.6 - 94.4 fL [facility] Mean Cell Hemoglobin 31.0 27.1 - 32.0 pg [facility] Mean Cell Hemoglobin Concentration 33.3 31.7 - 35.0 g/dL [facility] Platelet 244 145 - 357 x10(3)/[facility] RDW Standard Deviation 44.2 37.0 - 46.0 fL [facility] RDW coefficient of variation 12.9 11.5 - 14.1 % [facility] Mean Platelet Volume 10.9 7.6 - 12.9 fL [facility] NRBC% auto 0.0 % [facility] NRBC Absolute 0.000 0.000 - 0.000 x10(3)/[facility] Blood 06/19/2023 3:22 AM EDT 06/19/2023 3:47 AM EDT Narrative Resulting Agency Comment Spec In Lab Terrence Keating MD HEMATOLOGY ORDERABLE S Performing Organization Address City/[facility]/ZIP Co de Phone Number [facility] [place] [address] * Phosphorus (06/19/2023 3:22 AM EDT) Phosphorus 4.1 2.5 - 4.5 mg/dL [facility] Blood 06/19/2023 3:22 AM EDT 06/19/2023 3:47 AM EDT Narrative Resulting Agency Comment Spec In Lab Eufemia Copeland MD CHEMISTRY ORDERABL ES [facility] [place] [address] * Magnesium (06/19/2023 3:22 AM EDT) Magnesium 1.00 0.69 - 1.07 mmol/L [facility] Blood 06/19/2023 3:22 AM EDT 06/19/2023 3:47 AM EDT Narrative Resulting Agency Comment Spec In Lab Eufemia Copeland MD CHEMISTRY ORDERABL ES [facility] [place] [address] * (ABNORMAL) Basic Metabolic Panel (non-fasting) (06/18/2023 5:17 PM EDT) Glucose 115 65 - 199 mg/dL [facility] Comment:Diabetes: >=200 mg/d L plus symptoms Blood Urea Nitrogen 22(H) 8 - 18 mg/dL [facility] Creatinine 1.12 0.70 - 1.20 mg/dL [facility] Sodium 137 135 - 145 mmol/L [facility] Potassium 4.2 3.5 - 5.0 mmol/L [facility] Comment: Please note: ??Patients with WBC >100,000 may have falsely elevated Potassium levels. ??For accurate Potassium quantification in these patients send serum separator tube (gold top) for subsequent determinations. ??Contact the Clinical Chemistry Laboratory if there are any questions. Chloride 101 98 - 107 mmol/L [facility] Carbon Dioxide 22 22 - 31 mmol/L [facility] Anion Gap 14 5 - 15 mmol/L [facility] Calcium 9.6 8.5 - 10.5 mg/dL [facility] Est Glomerular Filtration Rate 58(L) >=60 mL/min/1. 73 m?? [facility] Lab Eufemia Copeland MD CHEMISTRY ORDERABL ES [facility] [place] [address] * (ABNORMAL) Basic Metabolic Panel (non-fasting) (06/18/2023 4:19 AM EDT) Glucose 96 65 - 199 mg/dL [facility] Comment:Diabetes: >=200 mg/d L plus symptoms Blood Urea Nitrogen 22(H) 8 - 18 mg/dL [facility] Creatinine 0.93 0.70 - 1.20 mg/dL [facility] Sodium 138 135 - 145 mmol/L [facility] Potassium 4.2 3.5 - 5.0 mmol/L [facility] Comment: Please note: ??Patients with WBC >100,000 may have falsely elevated Potassium levels. ??For accurate Potassium quantification in these patients send serum separator tube (gold top) for subsequent determinations. ??Contact the Clinical Chemistry Laboratory if there are any questions. Chloride 102 98 - 107 mmol/L [facility] Carbon Dioxide Not Perf 22 - 31 [facility] Comment:Add-on request. Samp le too old to perform test. Anion Gap Unable to Calculate 5 - 15 mmol/L [facility] Calcium 9.5 8.5 - 10.5 mg/dL [facility] Est Glomerular Filtration Rate 73 >=60 mL/min/1 .73 m?? [facility] Comment: [...] Lab Eufemia Copeland MD CHEMISTRY ORDERABL ES [facility] [place] [address] * Differential, Automated (06/18/2023 4:19 AM EDT) Neutrophil % 54.1 % [facility] Neutrophil Absolute 4.52 1.70 - 6.10 x10(3)/[facility] Lymph % 31.0 % [facility] Lymphocytes Abs 2.6 0.9 - 3.2 x10(3)/[facility] Monocyte % 9.2 % [facility] Monocyte Abs 0.8 0.3 - 0.9 x10(3)/[facility] Eos % 4.9 % [facility] Eosinophils Abs 0.4 0.0 - 0.4 x10(3)/[facility] Basophil % 0.6 % [facility] Baso Absolute 0.0 0.0 - 0.1 x10(3)/[facility] Immature Gran % 0.20 % [facility] Comment: Immature granulocytes(IG's)percentage and absolute [...] Lab Terrence Keating MD HEMATOLOGY ORDERABLE S [facility] [place] [address] * Hemogram (06/18/2023 4:19 AM EDT) Pathologist [facility] White Blood Cell 8.4 4.0 - 9.5 x10(3)/[facility] Red Blood Cell 4.70 4.00 - 5.21 x10(6)/[facility] Hemoglobin 14.5 11.7 - 15.5 g/dL [facility] Hematocrit 42.8 35.7 - 45.8 % [facility] Mean Cell Volume 91.1 82.6 - 94.4 fL [facility] Mean Cell Hemoglobin 30.9 27.1 - 32.0 pg [facility] Mean Cell Hemoglobin Concentration 33.9 31.7 - 35.0 g/dL [facility] Platelet 258 145 - 357 x10(3)/[facility] RDW Standard Deviation 43.6 37.0 - 46.0 [facility] RDW coefficient of variation 13.0 11.5 - 14.1 % [facility] Mean Platelet Volume 10.7 7.6 - 12.9 [facility] NRBC% auto 0.0 % [facility] NRBC Absolute 0.000 0.000 - 0.000 x10(3)/[facility] Blood 06/18/2023 4:19 AM EDT 06/18/2023 4:40 AM EDT Narrative Resulting Agency Comment Spec In Lab Terrence Keating MD HEMATOLOGY ORDERABLE S [facility] [place] [address] * Phosphorus (06/18/2023 4:19 AM EDT) Phosphorus 3.7 2.5 - 4.5 mg/dL [facility] Blood 06/18/2023 4:19 AM EDT 06/18/2023 4:40 AM EDT Narrative Resulting Agency Comment Spec In Lab Eufemia Copeland MD CHEMISTRY ORDERABL ES Performing Organization Address [facility] de Phone Number [facility] [place] [address] * Magnesium (06/18/2023 4:19 AM EDT) Magnesium 1.02 0.69 - 1.07 mmol/L [facility] Blood 06/18/2023 4:19 AM EDT 06/18/2023 4:40 AM EDT Narrative Resulting Agency Comment Spec In Lab Eufemia Copeland MD CHEMISTRY ORDERABL ES Performing Organization Address [facility] Phone Number [facility] [place] [address] * Phosphorus (06/17/2023 2:26 PM EDT) Phosphorus 2.8 2.5 - 4.5 mg/dL [facility] Blood 06/17/2023 2:26 PM EDT 06/17/2023 2:36 PM EDT Narrative Resulting Agency Comment Spec In Lab Eufemia Copeland MD CHEMISTRY ORDERABL ES Performing Organization Address [facility] Co de Phone Number [facility] [place] [address] * Magnesium (06/17/2023 2:26 PM EDT) Magnesium 1.01 0.69 - 1.07 mmol/L [facility] Blood 06/17/2023 2:26 PM EDT 06/17/2023 2:36 PM EDT Narrative Resulting Agency Comment Spec In Lab Eufemia Copeland MD CHEMISTRY ORDERABL ES [facility] [place] [address] * (ABNORMAL) Basic Metabolic Panel (non-fasting) (06/17/2023 2:26 PM EDT) Glucose 103 65 - 199 mg/dL [facility] Comment:Diabetes: >=200 mg/d L plus symptoms Blood Urea Nitrogen 21(H) 8 - 18 mg/dL [facility] Creatinine 1.07 0.70 - 1.20 mg/dL [facility] Sodium 135 135 - 145 mmol/L [facility] Potassium 3.7 3.5 - 5.0 mmol/L [facility] Comment: Please note: ??Patients with WBC >100,000 may have falsely elevated Potassium levels. ??For accurate Potassium quantification in these patients send serum separator tube (gold top) for subsequent determinations. ??Contact the Clinical Chemistry Laboratory if there are any questions. Chloride 97(L) 98 - 107 mmol/L [facility] Carbon Dioxide 24 22 - 31 mmol/L [facility] Anion Gap 14 5 - 15 mmol/L [facility] Calcium 9.6 8.5 - 10.5 mg/dL [facility] Est Glomerular Filtration Rate 62 >=60 mL/min/1. 73 m?? [facility] [...] Eufemia Copeland MD CHEMISTRY ORDERABL ES [facility] [place] [address] * XR Abdomen Flat & Upright (06/17/2023 [...] who have questions please contact the health residential care officer that requested your imaging first. ? Electronically signed by: Wilton Cabrera MD, [facility] ([phone]), at 06/17/2023 5:30 PM Narrative 06/17/2023 5:30 PM EDT EXAMINATION: XR ABDOMEN FLAT AND UPRIGHT CLINICAL HISTORY: patient with foul odor from [facility]. hx hysterectomy, LLQ tenderness, constipation TECHNIQUE: Supine [...] CLINICAL HISTORY: patient with foul odor from [facility]. hx hysterectomy, LLQ tenderness, constipation TECHNIQUE: Supine [...] patients who have questions please contactthe health residential care officer that requested your imaging first. Electronically signed by: Wilton Cabrrea MD, [facility]([phone]), at 06/17/2023 5:30 PM Eufemia Copeland MD IMG DX ORDERABLES * (ABNORMAL) Basic Metabolic Panel (non-fasting) (06/17/2023 5:01 AM EDT) Glucose 100 65 - 199 mg/dL [facility] Comment:Diabetes: >=200 mg/d L plus symptoms Blood Urea Nitrogen 24(H) 8 - 18 mg/dL [facility] Creatinine 1.03 0.70 - 1.20 mg/dL [facility] Sodium 136 135 - 145 mmol/L [facility] Potassium Not Perf 3.5 - 5.0 [facility] Comment: Unable to quantitate due [...] questions. Chloride 100 98 - 107 mmol/L [facility] Carbon Dioxide 24 22 - 31 mmol/L [facility] Anion Gap 12 5 - 15 mmol/L [facility] Calcium 9.5 8.5 - 10.5 mg/dL [facility] Est Glomerular Filtration Rate 65 >=60 mL/min/1. 73 m?? [facility] [...] In Lab Terrence Keating MD CHEMISTRY ORDERABLES [facility] [place] [address] * Differential, Automated (06/17/2023 1:11 AM EDT) Neutrophil % 54.5 % [facility] Neutrophil Absolute 5.20 1.70 - 6.10 x10(3)/[facility] Lymph % 31.4 % [facility] Lymphocytes Abs 3.0 0.9 - 3.2 x10(3)/[facility] Monocyte % 9.8 % [facility] Monocyte Abs 0.9 0.3 - 0.9 x10(3)/[facility] Eos % 3.4 % [facility] Eosinophils Abs 0.3 0.0 - 0.4 x10(3)/[facility] Basophil % 0.5 % [facility] Baso Absolute 0.0 0.0 - 0.1 x10(3)/[facility] Immature Gran % 0.40 % [facility] Comment: Immature granulocytes(IG's)percentage and absolute [...] Lab Terrence Keating MD HEMATOLOGY ORDERABLE S [facility] [place] [address] * Hemogram (06/17/2023 1:11 AM EDT) White Blood Cell 9.5 4.0 - 9.5 x10(3)/[facility] Red Blood Cell 4.60 4.00 - 5.21 x10(6)/[facility] Hemoglobin 14.2 11.7 - 15.5 g/dL [facility] Hematocrit 43.0 35.7 - 45.8 % [facility] Mean Cell Volume 93.5 82.6 - 94.4 fL [facility] Mean Cell Hemoglobin 30.9 27.1 - 32.0 pg [facility] Mean Cell Hemoglobin Concentration 33.0 31.7 - 35.0 g/dL [facility] Platelet 256 145 - 357 x10(3)/[facility] RDW Standard Deviation 45.0 37.0 - 46.0 [facility] RDW coefficient of variation 13.2 11.5 - 14.1 % [facility] Mean Platelet Volume 10.9 7.6 - 12.9 [facility] NRBC% auto 0.0 % [facility] NRBC Absolute 0.000 0.000 - 0.000 x10(3)/[facility] Blood 06/17/2023 1:11 AM EDT 06/17/2023 1:16 AM EDT Narrative Resulting Agency Comment Spec In Lab Terrence Keating MD HEMATOLOGY ORDERABLE S [facility] [place] [address] * Magnesium (06/17/2023 1:11 AM EDT) Magnesium 0.96 0.69 - 1.07 mmol/L [facility] Blood 06/17/2023 1:11 AM EDT 06/17/2023 1:16 AM EDT Narrative Resulting Agency Comment Spec In Lab Eufemia Copeland MD CHEMISTRY ORDERABL ES Performing Organization Address [facility] Co de Phone Number [facility] [place] [address] * (ABNORMAL) Basic Metabolic Panel (non-fasting) (06/17/2023 1:11 AM EDT) Pathologist [facility] Glucose 102 65 - 199 mg/dL [facility] Comment:Diabetes: >=200 mg/d L plus symptoms Blood Urea Nitrogen 24(H) 8 - 18 mg/dL [facility] Creatinine 1.08 0.70 - 1.20 mg/dL [facility] Sodium 137 135 - 145 mmol/L [facility] Potassium 4.1 3.5 - 5.0 mmol/L [facility] Comment: Please note: ??Patients with WBC >100,000 may have falsely elevated Potassium levels. ??For accurate Potassium quantification in these patients send serum separator tube (gold top) for subsequent determinations. ??Contact the Clinical Chemistry Laboratory if there are any questions. Chloride 100 98 - 107 mmol/L [facility] Carbon Dioxide 24 22 - 31 mmol/L [facility] Anion Gap 13 5 - 15 mmol/L [facility] Calcium 9.2 8.5 - 10.5 mg/dL [facility] Est Glomerular Filtration Rate 61 >=60 mL/min/1. 73 m?? [facility] [...] In Lab Terrence Keating MD CHEMISTRY ORDERABLES [facility] [place] [address] * (ABNORMAL) Basic Metabolic Panel (non-fasting) (06/16/2023 8:28 PM EDT) Glucose 111 65 - 199 mg/dL [facility] Comment:Diabetes: >=200 mg/d L plus symptoms Blood Urea Nitrogen 23(H) 8 - 18 mg/dL [facility] Creatinine 1.21(H) 0.70 - 1.20 mg/dL [facility] Sodium 137 135 - 145 mmol/L [facility] Potassium 4.2 3.5 - 5.0 mmol/L [facility] Comment: Please note: ??Patients with WBC >100,000 may have falsely elevated Potassium levels. ??For accurate Potassium quantification in these patients send serum separator tube (gold top) for subsequent determinations. ??Contact the Clinical Chemistry Laboratory if there are any questions. Chloride 99 98 - 107 mmol/L [facility] Carbon Dioxide 26 22 - 31 mmol/L [facility] Anion Gap 12 5 - 15 mmol/L [facility] Calcium 9.3 8.5 - 10.5 mg/dL [facility] Est Glomerular Filtration Rate 53(L) >=60 mL/min/1. 73 m?? [facility] [...] MD CHEMISTRY ORDERABL ES Performing Organization Address City/State/[facility] Co de Phone Number [facility] [place] [address] * (ABNORMAL) Basic Metabolic Panel (non-fasting) (06/16/2023 2:29 PM EDT) Pathologist [facility] Glucose 175 65 - 199 mg/dL [facility] Comment:Diabetes: >=200 mg/d L plus symptoms Blood Urea Nitrogen 25(H) 8 - 18 mg/dL [facility] Creatinine 1.27(H) 0.70 - 1.20 mg/dL [facility] Sodium 135 135 - 145 mmol/L [facility] Potassium 3.9 3.5 - 5.0 mmol/L [facility] Comment: result rechecked-EL Please note: ??Patients with WBC >100,000 may have falsely elevated Potassium levels. ??For accurate Potassium quantification in these patients send serum separator tube (gold top) for subsequent determinations. ??Contact the Clinical Chemistry Laboratory if there are any questions. Chloride 96(L) 98 - 107 mmol/L [facility] Carbon Dioxide 26 22 - 31 mmol/L [facility] Anion Gap 13 5 - 15 mmol/L [facility] Calcium 9.3 8.5 - 10.5 mg/dL [facility] Est Glomerular Filtration Rate 50(L) >=60 mL/min/1. 73 m?? [facility] [...] Lab Eufemia Copeland MD CHEMISTRY ORDERABL ES [facility] [place] [address] * (ABNORMAL) Basic Metabolic Panel (non-fasting) (06/16/2023 9:01 AM EDT) Glucose 148 65 - 199 mg/dL [facility] Comment:Diabetes: >=200 mg/d L plus symptoms Blood Urea Nitrogen 27(H) 8 - 18 mg/dL [facility] Creatinine 1.27(H) 0.70 - 1.20 mg/dL [facility] Sodium 136 135 - 145 mmol/L [facility] Potassium 2.9(Criti edy) 3.5 - 5.0 mmol/L [facility] Comment: called by tmp /read back by (Malia Mcintyre)/ 06/16/23 @552 Please note: ??Patients with WBC >100,000 may have falsely elevated Potassium levels. ??For accurate Potassium quantification in these patients send serum separator tube (gold top) for subsequent determinations. ??Contact the Clinical Chemistry Laboratory if there are any questions. Chloride 91(L) 98 - 107 mmol/L [facility] Carbon Dioxide 32(H) 22 - 31 mmol/L [facility] Anion Gap 13 5 - 15 mmol/L [facility] Calcium 9.7 8.5 - 10.5 mg/dL [facility] Est Glomerular Filtration Rate 50(L) >=60 mL/min/1. 73 m?? [facility] [...] CHEMISTRY ORDERABL ES Performing Organization Address [facility]/ZIP Co de Phone Number [facility] [place] [address] * (ABNORMAL) Magnesium (06/16/2023 3:30 AM EDT) Magnesium 1.09(H) 0.69 - 1.07 mmol/L [facility] Blood Venous Draw / Unknown 06/16/2023 3:30 AM EDT 06/16/2023 3:38 AM EDT Narrative Resulting Agency Comment Spec In Lab Eufemia Copeland MD CHEMISTRY ORDERABL ES Performing Organization Address City/[facility]/ZIP Co de Phone Number [facility] [place] [address] * (ABNORMAL) Differential, Automated (06/16/2023 3:30 AM EDT) Pathologist [facility] Neutrophil % 50.4 % [facility] Neutrophil Absolute 4.15 1.70 - 6.10 x10(3)/ L [facility] Lymph % 33.7 % [facility] Lymphocytes Abs 2.8 0.9 - 3.2 x10(3)/[facility] Monocyte % 11.8 % [facility] Monocyte Abs 1.0(H) 0.3 - 0.9 x10(3)/[facility] Eos % 3.3 % [facility] Eosinophils Abs 0.3 0.0 - 0.4 x10(3)/[facility] Basophil % 0.6 % [facility] Baso Absolute 0.0 0.0 - 0.1 x10(3)/[facility] Immature Gran % 0.20 % [facility] Comment: Immature granulocytes(IG's)percentage and absolute count will include metamyelocytes, myelocytes, and promyelocytes. Blood smears from CBCs yielding IG's will be scanned manually for concordance. If this scan disagrees with the automated IG or if promyelocytes are noted, a manual differential will be performed. Immature Gran Absolute 0.02 0.00 - 0.04 x10(3)/ L [facility] Blood 06/16/2023 3:30 AM EDT 06/16/2023 3:37 AM EDT Narrative Resulting Agency Comment Spec In Lab Terrence Keating MD HEMATOLOGY ORDERABLE S [facility] [place] [address] * Hemogram (06/16/2023 3:30 AM EDT) [facility] White Blood Cell 8.2 4.0 - 9.5 x10(3)/[facility] LABORATORY Red Blood Cell 4.69 4.00 - 5.21 x10(6)/[facility] LABORATORY Hemoglobin 14.5 11.7 - 15.5 g/dL [facility] Hematocrit 42.7 35.7 - 45.8 % [facility] Mean Cell Volume 91.0 82.6 - 94.4 fL [facility] Mean Cell Hemoglobin 30.9 27.1 - 32.0 pg [facility] Mean Cell Hemoglobin Concentration 34.0 31.7 - 35.0 g/dL [facility] Platelet 260 145 - 357 x10(3)/[facility] LABORATORY RDW Standard Deviation 43.5 37.0 - 46.0 [facility] LABORATORY RDW coefficient of variation 13.0 11.5 - 14.1 % [facility] Mean Platelet Volume 11.1 7.6 - 12.9 [facility] LABORATORY NRBC% auto 0.0 % [facility] NRBC Absolute 0.000 0.000 - 0.000 x10(3)/[facility] LABORATORY Blood 06/16/2023 3:30 AM EDT 06/16/2023 3:37 AM EDT Narrative Resulting Agency Comment Spec In Lab Terrence Keating MD HEMATOLOGY ORDERABLE S [facility] [place] [address] * (ABNORMAL) Basic Metabolic Panel (non-fasting) (06/16/2023 3:30 AM EDT) Glucose 110 65 - 199 mg/dL [facility] Comment:Diabetes: >=200 mg/d L plus symptoms Blood Urea Nitrogen 28(H) 8 - 18 mg/dL [facility] Creatinine 1.20 0.70 - 1.20 mg/dL [facility] Sodium 135 135 - 145 mmol/L [facility] Potassium 2.7(Criti edy) 3.5 - 5.0 mmol/L [facility] Comment: called by [place] /read back by Jolly Friedman / 06/16/23 [id number] Please note: ??Patients with WBC >100,000 may have falsely elevated Potassium levels. ??For accurate Potassium quantification in these patients send serum separator tube (gold top) for subsequent determinations. ??Contact the Clinical Chemistry Laboratory if there are any questions. Chloride 90(L) 98 - 107 mmol/L [facility] Carbon Dioxide 33(H) 22 - 31 mmol/L [facility] Anion Gap 12 5 - 15 mmol/L [facility] Calcium 9.2 8.5 - 10.5 mg/dL [facility] Est Glomerular Filtration Rate 54(L) >=60 mL/min/1. 73 m?? [facility] [...] Lab Eufemia Copeland MD CHEMISTRY ORDERABL ES [facility] [place] [address] * Heparin (unfractionated) Level (06/16/2023 3:30 AM EDT) UF Heparin 0.64 IU/mL [facility] LABORATORY [...] Lab Terrence Keating MD HEMATOLOGY ORDERABLE S [facility] [place] [address] * Lipid Panel (Reflex Direct LDL) (06/16/2023 3:30 AM EDT) Cholesterol, Total 190 mg/dL [facility] Comment: Desirable: ? <200 mg/dL Borderline High: 200-239 mg/dL Higher: ?>ka=459 mg/dL Triglyceride 126 mg/dL [facility] Comment: Normal: ?<150 mg/dL Borderline High: 150-199 mg/dL High: ?200-499 mg/dL Very High: ? >fe=000 mg/dL HDL Cholesterol 50 mg/dL [facility] Comment: Females: High Risk: <50 mg/dL Males: High Risk: <40 mg/dL LDL Cholesterol 115 mg/dL [facility] Comment: Desirable: ? <100 mg/dL Above Desirable: 100-129 mg/dL Borderline High: 130-159 mg/dL High: ?160-189 mg/dL Very High: ? >lr=670 mg/dL Lipid Interpretation See Note [facility] Comment: It is important to [...] Guidelines (most recently Ysabel et al. [facility] 12/09/21): For individuals with atherosclerotic cardiovascular disease (ASCVD)or LDL >hq=322 mg/dL, use a high-intensity statin (40-80 mg [...] In Lab Terrence Keating MD CHEMISTRY ORDERABLES [facility] [place] [address] * (ABNORMAL) Basic Metabolic Panel (non-fasting) (06/15/2023 9:33 PM EDT) Glucose 120 65 - 199 mg/dL [facility] Comment:Diabetes: >=200 mg/d L plus symptoms Blood Urea Nitrogen 29(H) 8 - 18 mg/dL [facility] Creatinine 1.38(H) 0.70 - 1.20 mg/dL [facility] Sodium 135 135 - 145 mmol/L [facility] Potassium 3.1(L) 3.5 - 5.0 mmol/L [facility] Comment: Please note: ??Patients with WBC >100,000 may have falsely elevated Potassium levels. ??For accurate Potassium quantification in these patients send serum separator tube (gold top) for subsequent determinations. ??Contact the Clinical Chemistry Laboratory if there are any questions. Chloride 92(L) 98 - 107 mmol/L [facility] Carbon Dioxide 31 22 - 31 mmol/L [facility] Anion Gap 12 5 - 15 mmol/L [facility] Calcium 9.4 8.5 - 10.5 mg/dL [facility] Est Glomerular Filtration Rate 45(L) >=60 mL/min/1. 73 m?? [facility] [...] CHEMISTRY ORDERABL ES Performing Organization Address [facility]/ZIP Co de Phone Number [facility] [place] [address] * Heparin (unfractionated) Level (06/15/2023 9:33 PM EDT) UF Heparin 0.63 IU/mL [facility] LABORATORY [...] City/[facility]/ZIP Co de Phone Number [facility] [place] [address] * (ABNORMAL) Magnesium (06/15/2023 5:47 PM EDT) Magnesium 1.10(H) 0.69 - 1.07 mmol/L [facility] Blood Venous Draw / Unknown 06/15/2023 5:47 PM EDT 06/15/2023 6:10 PM EDT Narrative Resulting Agency Comment Spec In Lab Terrence Keating MD CHEMISTRY ORDERABLES [facility] [place] [address] * (ABNORMAL) Basic Metabolic Panel (non-fasting) (06/15/2023 5:47 PM EDT) Glucose 147 65 - 199 mg/dL [facility] Comment:Diabetes: >=200 mg/d L plus symptoms Blood Urea Nitrogen 29(H) 8 - 18 mg/dL [facility] Creatinine 1.20 0.70 - 1.20 mg/dL [facility] Sodium 134(L) 135 - 145 mmol/L [facility] Potassium 2.9(Criti edy) 3.5 - 5.0 mmol/L [facility] Comment: Called by: dm, Read back by: qamar rne, Date/Time:06/15/23 19:11. Please note: ??Patients with WBC >100,000 may have falsely elevated Potassium levels. ??For accurate Potassium quantification in these patients send serum separator tube (gold top) for subsequent determinations. ??Contact the Clinical Chemistry Laboratory if there are any questions. Chloride 89(L) 98 - 107 mmol/L [facility] Carbon Dioxide 29 22 - 31 mmol/L [facility] Anion Gap 16(H) 5 - 15 mmol/L [facility] Calcium 9.1 8.5 - 10.5 mg/dL [facility] Est Glomerular Filtration Rate 54(L) >=60 mL/min/1. 73 m?? [facility] [...] Lab Eufemia Copeland MD CHEMISTRY ORDERABL ES [facility] [place] [address] * Rapid Drug Screen w/o Confirmation, Urine (06/15/2023 4:46 PM EDT) Barbiturates Screen, Urine None Detected None Detected [facility] Comment: The barbiturate screen detects [...] Benzodiazepines Screen, Urine None Detected None Detected [facility] Comment: The benzodiazepines screen detects [...] Cocaine Screen, Urine None Detected None Detected [facility] Comment: The cocaine metabolites screen detects benzoylecgonine (Cocaine Metabolite) at concentrations >150 ng/mL. A ? Presumptive Positive? result indicates that the screening result was positive but has not yet been confirmed by a highly-specific method. As with any screen, occasional false positive results from cross-reacting substances may occur. Not for Medico-Legal Purposes. Methadone Metabolites Screen, Urine None Detected None Detected [facility] Comment: The methadone metabolite screen detects EDDP (major methadone metabolite) at concentrations >100 ng/mL. A ? Presumptive Positive? result indicates that the screening result was positive but has not yet been confirmed by a highly-specific method. As with any screen, occasional false positive results from cross-reacting substances may occur. Not for Medico-Legal Purposes. Opiate Screen, Urine None Detected None Detected [facility] Comment: The opiates screen detects [...] Cannabinoid Screen, Urine None Detected None Detected [facility] Comment: The marijuana metabolites screen detects the THC metabolite (14-jgt-8-carboxy-delta 9-THC) at concentrations >20 ng/mL. A ? Presumptive Positive? result indicates that the screening result was positive but has not yet been confirmed by a highly-specific method. As with any screen, occasional false positive results from cross-reacting substances may occur. Not for Medico-Legal Purposes. Oxycodone Screen, Urine None Detected None Detected [facility] Comment: The oxycodone screen detects oxycodone and oxymorphone at concentrations >100 ng/mL. A ? Presumptive Positive? result indicates that the screening result was positive but has not yet been confirmed by a highly-specific method. As with any screen, occasional false positive results from cross-reacting substances may occur. Not for Medico-Legal Purposes. Buprenorphine Screen, Urine None Detected None Detected [facility] Comment: The buprenorphine screen detects [...] of this test were determined by [facility] in accordance with CLIA requirements. This laboratory is qualified under CLIA to perform high-complexity testing. Fentanyl Screen, Urine None Detected None Detected [facility] Comment: The fentanyl screen detects [...] characteristics of this test were determined by [facility] in accordance with CLIA requirements. This laboratory is qualified under CLIA to perform high-complexity testing. Tricyclics Screen, Urine None Detected None Detected [facility] Comment: The tricyclics screen detects [...] of this test were determined by [facility] in accordance with CLIA requirements. This laboratory is qualified under CLIA to perform high-complexity testing. Ethanol Screen, Urine None Detected None Detected [facility] Comment:This urine ethanol a ssay detects ethanol at concentrations >/= 100 mg/L. Amphetamines Screen, Urine None Detected None Detected [facility] Comment: The amphetamine screen detects d-amphetamine and d-methamphetamine at concentrations >300 ng/mL. A ? Presumptive Positive? result indicates that the screening result was positive but has not yet been confirmed by a highly-specific method. As with any screen, occasional false positive results from cross-reacting substances may occur. Not for Medico-Legal Purposes. Creatinine Specimen Validity Test, Urine 39 >=20 mg/dL [facility] Chromate Specimen Validity Test, Urine <2.0 <=49.9 mg/L [facility] Nitrite Specimen Validity Test, Urine <50 <=499 mg/L [facility] Oxidant Specimen Validity Test, Urine 12 <=199 mg/L [facility] pH Specimen Validity Test, Urine 5.4 3.0 - 10.9 [facility] Adulterants Screen, Urine None Detected None Detected [facility] Comment:No adulteration of t his urine sample was detected. Urine 06/15/2023 4:46 PM EDT 06/15/2023 5:30 PM EDT Narrative Resulting Agency Comment Spec In Lab Eufemia Copeland MD CHEMISTRY ORDERABL ES Performing Organization Address [facility] de Phone Number [facility] [place] [address] * Rapid Drug Screen, Urine (TEE Request) (06/15/2023 4:46 PM EDT) TEE Conf Requested No [facility] TEE Requested See Comment [facility] Comment:Refer to Rapid Drug Screen w/o Confirmation, Urine for results. Urine 06/15/2023 4:46 PM EDT 06/15/2023 5:30 PM EDT Narrative Resulting Agency Comment Spec In Lab Eufemia Copeland MD URINE ORDERABLES Performing Organization Address [facility] Phone Number [facility] [place] [address] * (ABNORMAL) Basic Metabolic Panel (non-fasting) (06/15/2023 2:29 PM EDT) Glucose 141 65 - 199 mg/dL [facility] Comment:Diabetes: >=200 mg/d L plus symptoms Blood Urea Nitrogen 31(H) 8 - 18 mg/dL [facility] Creatinine 1.21(H) 0.70 - 1.20 mg/dL [facility] Sodium 132(L) 135 - 145 mmol/L [facility] Potassium 3.0(Criti edy) 3.5 - 5.0 mmol/L [facility] Comment: Called by: dm, Read back by: qamar ren, Date/Time:04/09/24 15:18. Please note: ??Patients with WBC >100,000 may have falsely elevated Potassium levels. ??For accurate Potassium quantification in these patients send serum separator tube (gold top) for subsequent determinations. ??Contact the Clinical Chemistry Laboratory if there are any questions. Chloride 89(L) 98 - 107 mmol/L [facility] Carbon Dioxide 32(H) 22 - 31 mmol/L [facility] Anion Gap 11 5 - 15 mmol/L [facility] Calcium 9.6 8.5 - 10.5 mg/dL [facility] Est Glomerular Filtration Rate 53(L) >=60 mL/min/1. 73 m?? [facility] MD CHEMISTRY ORDERABL ES Performing Organization Address City/State/[facility] Co de Phone Number [facility] [place] [address] * Heparin (unfractionated) Level (06/15/2023 2:29 PM EDT) UF Heparin 0.93 IU/mL [facility] LABORATORY [...] City/[facility]/ZIP Co de Phone Number [facility] [place] [phone] * EKG 12 Lead (06/15/2023 10:50 AM EDT) Ventricular rate 55 BPM MUSE SYSTEM Atrial Rate 55 BPM MUSE SYSTEM P-R Interval 184 ms MUSE SYSTEM QRS Duration 96 ms MUSE SYSTEM Q-T Interval 590 ms MUSE SYSTEM QTC Calculated (Bezet) 565 ms MUSE SYSTEM Calculated P [place] 54 degrees MUSE SYSTEM Calculated R [place] 54 degrees MUSE SYSTEM Calculated T [place] 13 degrees MUSE SYSTEM INTERPRETATION Sinus bradycardia with sinus arrhythmia Marked ST abnormality, possible inferior subendocardial injury Long QT interval Abnormal ECG When compared with ECG of 15-JUN-2023 02:17, Nonspecific T wave abnormality has replaced inverted T waves in Lateral leads Confirmed by Kai Haider ([id number]) on 06/16/2023 3:52:04 PM MUSE SYSTEM 06/15/2023 10:5 0 AM EDT 06/16/2023 3:52 PM EDT Terrence Keating MD ECG ORDERABLES Performing Organization Address [facility]/ZIP Co de Phone Number MUSE SYSTEM * (ABNORMAL) Basic Metabolic Panel (non-fasting) (06/15/2023 8:18 AM EDT) Glucose 113 65 - 199 mg/dL [facility] Comment:Diabetes: >=200 mg/d L plus symptoms Blood Urea Nitrogen 29(H) 8 - 18 mg/dL [facility] Creatinine 1.22(H) 0.70 - 1.20 mg/dL [facility] Sodium 134(L) 135 - 145 mmol/L [facility] Potassium 2.5(Criti edy) 3.5 - 5.0 mmol/L [facility] Comment: Called by: cheryl, Read back by: eamon mckeon, Date/Time:06/15/23 09:34. Please note: ??Patients with WBC >100,000 may have falsely elevated Potassium levels. ??For accurate Potassium quantification in these patients send serum separator tube (gold top) for subsequent determinations. ??Contact the Clinical Chemistry Laboratory if there are any questions. Chloride 89(L) 98 - 107 mmol/L [facility] Carbon Dioxide 30 22 - 31 mmol/L [facility] Anion Gap 15 5 - 15 mmol/L [facility] Calcium 10.0 8.5 - 10.5 mg/dL [facility] Est Glomerular Filtration Rate 53(L) >=60 mL/min/1. 73 m?? [facility] [...] Lab Eufemia Copeland MD CHEMISTRY ORDERABL ES [facility] [place] [address] * Heparin (unfractionated) Level (06/15/2023 8:18 AM EDT) UF Heparin 0.70 IU/mL [facility]OR[facility] [...] Lab Terrence Keating MD HEMATOLOGY ORDERABLE S [facility] [place] [address] * (ABNORMAL) Troponin (06/15/2023 8:18 AM EDT) [facility] Troponin-T, High Sensitivity 33(H) <=14 ng/L [facility] [...] troponin value can be found in the [facility] Laboratory Test Catalog Troponin - [facility] Laboratory Test Catalog Reference: Fourth Gila Definition of Myocardial Infarction. Journal of the [employer] 2018;72:4678-0128 Blood 06/15/2023 8:18 AM EDT 06/15/2023 8:34 AM EDT Narrative Resulting Agency Comment Spec In Lab Terrence Keating MD CHEMISTRY ORDERABLES [facility] [place] [address] * Differential, Automated (06/15/2023 4:28 AM EDT) Neutrophil % 48.0 % [facility] Neutrophil Absolute 3.20 1.70 - 6.10 x10(3)/[facility] LABORATORY Lymph % 35.8 % [facility] Lymphocytes Abs 2.4 0.9 - 3.2 x10(3)/[facility] LABORATORY Monocyte % 11.4 % [facility] Monocyte Abs 0.8 0.3 - 0.9 x10(3)/[facility] LABORATORY Eos % 3.7 % [facility] Eosinophils Abs 0.2 0.0 - 0.4 x10(3)/[facility] LABORATORY Basophil % 1.0 % [facility] Baso Absolute 0.1 0.0 - 0.1 x10(3)/[facility] LABORATORY Immature Gran % 0.10 % [facility] Comment: Immature granulocytes(IG's)percentage and absolute count will include metamyelocytes, myelocytes, and promyelocytes. Blood smears from CBCs yielding IG's will be scanned manually for concordance. If this scan disagrees with the automated IG or if promyelocytes are noted, a manual differential will be performed. Immature Gran Absolute 0.01 0.00 - 0.04 x10(3)/[facility] LABORATORY Blood 06/15/2023 4:28 AM EDT 06/15/2023 4:37 AM EDT Narrative Resulting Agency Comment Spec In Lab Terrence Keating MD HEMATOLOGY ORDERABLE S [facility] [place] [address] * (ABNORMAL) Hemogram (06/15/2023 4:28 AM EDT) White Blood Cell 6.7 4.0 - 9.5 x10(3)/[facility] LABORATORY Red Blood Cell 5.09 4.00 - 5.21 x10(6)/[facility] LABORATORY Hemoglobin 16.1(H) 11.7 - 15.5 g/dL [facility] Hematocrit 48.2(H) 35.7 - 45.8 % [facility] Mean Cell Volume 94.7(H) 82.6 - 94.4 fL [facility] Mean Cell Hemoglobin 31.6 27.1 - 32.0 pg [facility] Mean Cell Hemoglobin Concentration 33.4 31.7 - 35.0 g/dL [facility] Platelet 253 145 - 357 x10(3)/[facility] LABORATORY RDW Standard Deviation 45.5 37.0 - 46.0 [facility] LABORATORY RDW coefficient of variation 13.0 11.5 - 14.1 % [facility] Mean Platelet Volume 10.6 7.6 - 12.9 [facility] LABORATORY NRBC% auto 0.0 % [facility] NRBC Absolute 0.000 0.000 - 0.000 x10(3)/[facility] LABORATORY Blood 06/15/2023 4:28 AM EDT 06/15/2023 4:37 AM EDT Narrative Resulting Agency Comment Spec In Lab Terrence Keating MD HEMATOLOGY ORDERABLE S [facility] [place] [address] * (ABNORMAL) Troponin (06/15/2023 4:28 AM EDT) Troponin-T, High Sensitivity 34(H) <=14 ng/L [facility] [...] troponin value can be found in the [facility] Laboratory Test Catalog Troponin - [facility] Laboratory Test Catalog Reference: Fourth Gila Definition of Myocardial Infarction. Journal of the [employer] College [employer] 2018;72:[id number] Blood 06/15/2023 4:28 AM EDT 06/15/2023 4:37 AM EDT Narrative Resulting Agency Comment Spec In Lab Terrence Keating MD CHEMISTRY ORDERABLES [facility] [place] [address] * (ABNORMAL) Prothrombin Time (06/15/2023 4:28 AM EDT) Prothrombin Time 12.7(H) 9.4 - 12.5 sec [facility] International Normalization Ratio 1.1 [facility] Comment: [...] MD HEMATOLOGY ORDERABLE S Performing Organization Address [facility] Co de Phone Number [facility] [place] [address] * (ABNORMAL) Hepatic Function Panel (06/15/2023 4:28 AM EDT) Protein, Total 7.5 6.1 - 8.0 g/dL [facility] Albumin 4.3 3.2 - 5.2 g/dL [facility] Aspartate Aminotransferase 32(H) 0 - 30 unit/L [facility] Alanine Aminotransferase 26 0 - 30 unit/L [facility] Alkaline Phosphatase 70 35 - 105 unit/L [facility] Bilirubin, Total 0.8 0.2 - 1.3 mg/dL [facility] Bilirubin, Direct 0.1 0.0 - 0.3 mg/dL [facility] Blood 06/15/2023 4:28 AM EDT 06/15/2023 4:37 AM EDT Narrative Resulting Agency Comment Spec In Lab Terrence Keating MD CHEMISTRY ORDERABLES Performing Organization Address [facility] Co de Phone Number [facility] [place] [address] * (ABNORMAL) pro-Brain Natriuretic Peptide (06/15/2023 4:28 AM EDT) NT-proBNP 1,953(H) <=124 pg/mL [facility] Blood 06/15/2023 4:28 AM EDT 06/15/2023 4:37 AM EDT Narrative Resulting Agency Comment Spec In Lab Terrence Keating MD CHEMISTRY ORDERABLES Performing Organization Address City/[facility]/ZIP Co de Phone Number [facility] [place] [address] * TSH (06/15/2023 4:28 AM EDT) Thyroid Stimulating Hormone 2.98 0.27 - 4.20 mcIU/mL [facility] Comment: Reference Interval (mcIU/mL): Females: ??First Trimester: 0.23-3.88 ??Second Trimester: 0.22-3.90 ??Third Trimester: 0.44-4.66 Blood 06/15/2023 4:28 AM EDT 06/15/2023 4:37 AM EDT Narrative Resulting Agency Comment Spec In Lab Terrence Keating MD CHEMISTRY ORDERABLES Performing Organization Address [facility] Co de Phone Number [facility] [place] [address] * Phosphorus (06/15/2023 4:28 AM EDT) Phosphorus 4.4 2.5 - 4.5 mg/dL [facility] Blood 06/15/2023 4:28 AM EDT 06/15/2023 4:37 AM EDT Narrative Resulting Agency Comment Spec In Lab Terrence Keating MD CHEMISTRY ORDERABLES Performing Organization Address [facility] Co de Phone Number [facility] [place] [address] * (ABNORMAL) Magnesium (06/15/2023 4:28 AM EDT) Magnesium 1.22(H) 0.69 - 1.07 mmol/L [facility] Blood 06/15/2023 4:28 AM EDT 06/15/2023 4:37 AM EDT Narrative Resulting Agency Comment Spec In Lab Terrence Keating MD CHEMISTRY ORDERABLES Performing Organization Address [facility] Co de Phone Number [facility] [place] [address] * Calcium (06/15/2023 4:28 AM EDT) Calcium 9.7 8.5 - 10.5 mg/dL [facility] Blood 06/15/2023 4:28 AM EDT 06/15/2023 4:37 AM EDT Narrative Resulting Agency Comment Spec In Lab Terrence Keating MD CHEMISTRY ORDERABLES Performing Organization Address [facility] Co de Phone Number [facility] [place] [address] * (ABNORMAL) Basic Metabolic Panel (non-fasting) (06/15/2023 4:28 AM EDT) Glucose 112 65 - 199 mg/dL [facility] Comment:Diabetes: >=200 mg/d L plus symptoms Blood Urea Nitrogen 30(H) 8 - 18 mg/dL [facility] Creatinine 1.24(H) 0.70 - 1.20 mg/dL [facility] Sodium 134(L) 135 - 145 mmol/L [facility] Potassium 2.7(Criti edy) 3.5 - 5.0 mmol/L [facility] Comment: Called by: , Read back by: Olive Hernandez, Date/Time:06/15/23 05:16. Please note: ??Patients with WBC >100,000 may have falsely elevated Potassium levels. ??For accurate Potassium quantification in these patients send serum separator tube (gold top) for subsequent determinations. ??Contact the Clinical Chemistry Laboratory if there are any questions. Chloride 90(L) 98 - 107 mmol/L [facility] Carbon Dioxide 28 22 - 31 mmol/L [facility] Anion Gap 16(H) 5 - 15 mmol/L [facility] Calcium 9.7 8.5 - 10.5 mg/dL [facility] Est Glomerular Filtration Rate 52(L) >=60 mL/min/1. 73 m?? [facility] In Lab Terrence Keating MD CHEMISTRY ORDERABLES [facility] [place] [address] * EKG 12 Lead (06/15/2023 2:17 AM EDT) Ventricular rate 57 BPM MUSE SYSTEM Atrial Rate 57 BPM MUSE SYSTEM P-R Interval 200 ms MUSE SYSTEM QRS Duration 94 ms MUSE SYSTEM Q-T Interval 606 ms MUSE SYSTEM QTC Calculated (Bezet) 591 ms MUSE SYSTEM Calculated P [place] 66 degrees MUSE SYSTEM Calculated R [place] 74 degrees MUSE SYSTEM Calculated T [place] -33 degrees MUSE SYSTEM INTERPRETATION Sinus bradycardia Possible Lateral infarct (cited on or before 17-APR-2023) Marked ST abnormality, possible inferior subendocardial injury Prolonged QTc Abnormal ECG When compared with ECG of 20-APR-2023 10:23, Nonspecific T wave changes QT has lengthened Confirmed by fellow MD Hansa, Sindhu ([id number]) on 06/15/2023 4:36:19 PM Confirmed by MD Angelo Danette ([id number]) on 06/15/2023 4:51:21 PM MUSE SYSTEM 06/15/2023 [...] Wed06/15/23 at 1700, Until Discontinued, Routine 1332 ([facility] Hold - Provider: Admin Adt - Reason: Transfer to a Procedural area)1548 ([facility] Unhold - Provider: Admin Adt)1656 (Given - Provider: Heidy Paris RN) 1708 (Given - Provider: Heidy Paris RN) clopidogreL (Plavix) tablet 75 mg (CANCELED) 75 mg, Oral, DAILY, First dose on Wed07/03/23 at 0900, Until Discontinued, Routine 0854 (Given - Provider: Heidy Paris RN)1332 ([facility] Hold - Provider: Admin Adt - Reason: Transfer to a Procedural area)1548 ([facility] Unhold - Provider: Admin Adt) 0855 (Given - Provider: Heidy Paris RN) 0930 (Given - Provider: Heidy Paris RN) DULoxetine DR (Cymbalta) capsule 60 mg 60 mg, Oral, DAILY, First dose on Wed06/15/23 at 0900, Until Discontinued, Routine 0853 (Given - Provider: Heidy Paris RN)1332 ([facility] Hold - Provider: Admin Adt - Reason: Transfer to a Procedural area)1548 ([facility] Unhold - Provider: Admin Adt) 0856 (Given - Provider: Heidy Paris RN) 0931 (Given - Provider: Heidy Paris RN) gabapentin (Neurontin) capsule 600 mg 600 mg, Oral, NIGHTLY, First dose on Wed06/15/23 at 0200, Until Discontinued, Routine 1332 ([facility] Hold - Provider: Admin Adt - Reason: Transfer to a Procedural area)1548 ([facility] Unhold - Provider: Admin Adt)2137 (Given - Provider: Lorena Torres, ERWIN) 211 (Given - Provider: Machelle Busch RN) lidocaine [...] area)1548 ([facility] Unhold - Provider: Admin Adt) 1000 (Not [...] Procedural area)1548 ([facility] Unhold - Provider: Admin Adt)7 (Given - Provider: Lorena Torres RN) 2116 [...] Aura 06/17/23 at 1100, Until Discontinued, Routine 0900 (Not [...] mEq, Oral, ONCE, 1 dose, On Aura 07/08/23 at 2215, potassium chloride ER particle/crystal tablets (Klor-Con M) may be broken in half and each half swallowed separately. Tablets can be dissolved in ~4 ounces of water; allow ~2 minutes to dissolve, stir well and drink immediately. Do not crush, chew, or suck on tablet., Routine 221 (Given - Provider: Machelle Busch RN) ranolazine ER (Ranexa) tablet 1,000 mg 1,000 mg, Oral, 2 TIMES DAILY, First dose (after last modification) on Aura 06/24/23 at 2100, Until Discontinued, DO NOT CRUSH [...] Heidy Paris, ERWIN)2117 (Given - Provider: Machelle Busch RN) 0938 (Given - Provider: Heidy Paris RN) rimegepant (Nurtec ODT) Tablet, Rapid Dissolve 75 mg 75 mg, Oral, EVERY 48 HOURS, First dose (after last modification) on Wed06/23/23 at 1000, Until Discontinued 1000 (Not Given - Provider: Heidy Paris RN - Reason: Patient/family refused)1332 ([facility] Hold - Provider: Admin Adt - Reason: Transfer to a Procedural area)1548 ([facility] Unhold - Provider: Admin Adt) 1000 (Not Given - Provider: Heidy Paris RN - Reason: Patient/family refused) rOPINIRole (Requip) tablet 2 mg 2 mg, Oral, 2 TIMES DAILY, First dose on Wed06/15/23 at 0245, Until Discontinued, Routine 0853 (Given - Provider: Heidy Paris RN)1332 ([facility] Hold - Provider: Admin Adt - Reason: Transfer to a Procedural area)1548 ([facility] Unhold - Provider: Admin Adt)2137 (Given - Provider: Lorena Torres RN) 0856 (Given - Provider: Heidy Paris RN)2116 (Given - Provider: Machelle Busch RN) 0931 (Given - Provider: Heidy Paris RN) senna-docusate (Pericolace) 8.6-50 mg per tablet 2 tablet 2 tablet, Oral, 2 TIMES DAILY, First dose on Wed06/17/23 at 1100, Until Discontinued, Routine 0900 (Not Given - Provider: Heidy Paris RN - Reason: Patient/family refused)1332 ([facility] Hold - Provider: Admin Adt - Reason: Transfer to a Procedural area)1548 ([facility] Unhold - Provider: Admin Adt)2100 (Not Given - Provider: Lorena Trores RN - Reason: Contraindicated) 0900 (Not Given - Provider: Heidy Prais RN - Reason: Patient/family refused)2100 (Given - [...] Busch, ERWIN) 0937 (Given - Provider: Heidy Paris RN) [...] Adt)2137 (Given - Provider: Lorena Torres, ERWIN) 211 (Given - Provider: Machelle Busch RN) [...] - Provider: Machelle Busch RN - Comment: [facility] 0.52)0635 (New Bag - Provider: Machelle Busch [...] ordered pain medications are indicated., Routine 1332 ([facility] Hold - Provider: Admin Adt - Reason: Transfer to a Procedural area)1548 ([facility] Unhold - Provider: Admin Adt) albuteroL (Proventil, Ventolin) (2.5 mg/3 mL) (0.083 %) nebulizer solution 2.5 mg 2.5 mg, Nebulization, EVERY 4 HOURS PRN, Starting on Wed07/04/23 at 0857, Until Wed07/09/23 at 1844, Wheezing, Routine 1332 ([facility] Hold - Provider: Admin Adt - Reason: Transfer to a Procedural area)1548 ([facility] Unhold - Provider: Admin Adt) lidocaine (Xylocaine) 1% (10 mg/mL) injection 3 mg 3 mg (0.3 mL), Subcutaneous, ONCE PRN, 1 dose, Starting on Wed06/15/23 at 0146, Until Wed07/09/23 at 1844, for discomfort with PIV insertion, Routine 1332 ([facility] Hold - Provider: Admin Adt - Reason: Transfer to a Procedural area)1548 ([facility] Unhold - Provider: Admin Adt) loratadine (Claritin) tablet 10 mg 10 mg, Oral, DAILY PRN, Starting on Wed06/15/23 at 0146, Until Wed07/09/23 at 1844, allergies, Routine 1332 ([facility] Hold - Provider: Admin Adt - Reason: Transfer to a Procedural area)1548 ([facility] Unhold - Provider: Admin Adt) nitroGLYcerin (Nitrostat) disintegrating tablet 0.4 mg 0.4 mg, Sublingual, EVERY 5 MIN PRN, Starting on Wed06/22/23 at 1119, Until Wed07/09/23 at 1844, Chest pain, SL nitroglycerin may be repeated every 5 minutes as needed up to 3 doses, Routine 1332 ([facility] Hold - Provider: Admin Adt - Reason: Transfer to a Procedural area)1548 ([facility] Unhold - Provider: Admin Adt) 0951 (Given - Provider: Heidy Paris, ERWIN) ondansetron (pf) (Zofran) (2 mg/mL) injection 4 mg 4 mg, Intravenous, EVERY 8 HOURS PRN, Starting on Wed06/29/23 at 1449, Until Wed07/09/23 at 1844, Nausea 1332 ([facility] Hold - Provider: Admin Adt - Reason: Transfer to a Procedural area)1548 ([facility] Unhold - Provider: Admin Adt)2137 (Given [...] all sources in 24 hours., Routine 1332 ([facility] Hold - Provider: Admin Adt - Reason: Transfer to a Procedural area)1548 ([facility] Unhold - Provider: Admin Adt)2137 (Given - Provider: Lorena Torres, ERWIN) 0855 (Given - Provider: Heidy Paris, ERWIN)2120 (Given - Provider: Machelle Busch RN) simethicone (Gas-X Chew) 80 mg chewable tablet 80 mg 80 mg, Oral, EVERY 6 HOURS PRN, Starting on Wed06/20/23 at 0941, Until Wed07/09/23 at 1844, Cramping, Routine 1332 ([facility] Hold - Provider: Admin Adt - Reason: Transfer to a Procedural area)1548 ([facility] Unhold - Provider: Admin Adt) 1344 (Given [...] Routine documented in this encounter Care Teams Pickling Drum Operator Relationship Specialty Start Date End Date Polo Pearce PA [address] [place] [address] PCP - General Internal Medicine 06/09/21 documented as of this encounter
--- OUTSIDE RECORDS SUMMARY | 2023-10-22 00:40 | XMS_ITS | Encounter Summary ---
[place] [address] Care Team Providers Care Promos Executive Producer Name Role Phone Polo Pearce Primary Care Provider [phone] Reason for Visit * Diagnostic Test (Routine) - Closed Specialty Diagnoses / Procedures Referred By Jayant harris Referred To Contact Radiology Diagnoses Chest pain, unspecified type Procedures NM PET CT Cardiac Sarcoid Maegan Mike [facility] [place] [address] [place] [address] Referral ID Status Reason Start Date Expiration Date V isits Requested Visits Authorized [id number] Closed Specialty Service Requested 04/22/2023 10/20/2024 4 4 Encounter Details Date Type Department Care Team (Latest Contact Info) Description 04/30/2023 11:05 AM EST - 04/30/2023 11:59 PM EST Hospital Encounter [place] [address] Maegan Mike [facility] [place] [address] Discharge Disposition: Home Social History [...] nightly as needed. empagliflozin (Jardiance) 10 mg TabletIndications:Highway Maintenance Supervisor neal heart failure with preserved ejection fraction Take 1 tablet by mouth daily. 90 tablet 1 06/11/2021 rOPINIRole (Requip) 1 mg Tablet Take 2 mg by mouth 2 times daily. 07/16/2020 loratadine (Claritin) 10 mg Tablet Take 10 mg by mouth daily as needed. fluticasone propionate (FLONASE) 50 mcg/actuation [place], Suspension 1 spray by Each Nare route [...] PM EDT Office Visit Cardiology at [address] [place] [address] Jaspreet Kinsey MD [facility] [place] [address] 10/28/2023 9:00 AM EDT Office [place] [address] 10/29/2023 10:00 AM EDT Clinical [place] [address] 10/29/2023 10:15 AM EDT Procedure [place] [address] 11/01/2023 5:00 PM EDT Office [place] [phone] Selene Browning, PhD [facility] [place] [address] 11/22/2023 4:40 PM EDT Office Visit Cardiology at [address] [phone] Porsha Mcdaniels MD [facility] [place] [address] 12/13/2023 10:00 AM EDT Clinical Support [place] [phone] [facility] [place] [place] [address] documented as of this encounter Procedures Procedure [...] who have questions please contact the health geriatric care manager that requested your imaging first. ? 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 Following IV administration of 26.5 mCi technetium 99m sestamibi, SPECT-CT of the heart was obtained. Following IV injection of 8.8 mCi 85-okjcdg-8-deoxyglucose (FDG) and a standard uptake of approximately [...] obtained. Following IV injection of 8.8 mCi 09-dsfcgy-2-deoxyglucose (FDG) and astandard uptake of approximately 60 [...] patients who have questions please contactthe health geriatric care manager that requested your imaging first. Maeganbarby Vogelraymundo SUPERVISOR BORDER DEPARTMENT IMG PET ORDERABLE S documented in this encounter Visit Diagnoses Not on filedocumented in this encounter Care Teams Promos Executive Producer Relationship Specialty Start Date End Date Polo Pearce PA [address] [facility] [address] [place] [address] PCP - General Internal Medicine 06/09/21 documented as of this encounter
--- OUTSIDE RECORDS SUMMARY | 2023-10-22 00:40 | XMS_ITS | Encounter Summary ---
Author Organization [facility] [place] [address] Care Team Providers Care Stadium Attendant Name Role Phone Polo Pearce Primary Care Provider [phone] Encounter Details Date Type Department Care Team [...] in a mcc (including now)? No 04/19/2023 IPV Inpatient Questions [...] PM EDT Office Visit Cardiology at [address] [address] Jaspreet Kinsey MD [facility] [place] [address] 10/28/2023 9:00 AM EDT Office Visit [place] [address] 10/29/2023 10:00 AM EDT Clinical Support [place] [address] 10/29/2023 10:15 AM EDT Procedure [place] [address] 11/01/2023 5:00 PM EDT Office Visit [place] [phone] Selene Browning, PhD [facility] [place] [address] 11/22/2023 4:40 PM EDT Office Visit Cardiology at [address] [phone] Porsha Mcdaniels MD [facility] [place] [address] 12/13/2023 10:00 AM EDT Clinical Support Gastroenterology at [facility] [place] [phone] [facility] [place] [address] documented as of this encounter Visit Diagnoses Not on filedocumented in this encounter Care Teams Stadium Attendant Relationship Specialty Start Date End Date Polo Pearce PA [address] [place] [address] PCP - General Internal Medicine 06/09/21 documented as of this encounter
--- OUTSIDE RECORDS SUMMARY | 2023-10-22 00:40 | XMS_ITS | Encounter Summary ---
[place] [address] Care Team Providers Care Gas Producer Name Role Phone Polo Pearce Primary Care Provider [phone] Reason for Visit * Auth/Cert (Routine) Specialty Diagnoses / Procedures Referred By Jayant harris Referred To Contact Diagnoses NSTEMI (non-ST elevated myocardial infarction) NSTEMI Procedures ER Lloyd Pantoaj MD [facility] [place] [address] [facility] Referral ID Status Reason Start Date Expiration Date Visits Re quested Visits Authorized [id number] 1 1 Encounter Details Date Type Department Care Team (Latest Contact Info) Description 07/02/2023 10:10 AM EDT - 07/02/2023 11:59 PM EDT Hospital En[place] [address] Discharge Disposition: Home Social History Tobacco Use Types Packs/Day Years Used Date Smoking Tobacco: Never Smokeless Tobacco: Never Alcohol Use Standard Drinks/Week Comments Never 0 (1 standard drink = 0.6 oz pur e alcohol) [facility] Utilities Answer Date Recorded In the past 12 months has [employer] electric, gas, oil, or water company threatened [...] needed. fluticasone propionate (FLONASE) 50 mcg/actuation [place], Suspension 1 spray by Each Nare route [...] ordered. Henrietta Judge MD Vascular Surgery Pager: [phone] 07/02/23 ASA: 3 Mal: 3 Cr: Lab Results Component Value Date CREATININE 1.21 (H) 07/02/2023 * Deborah Ely RN - 07/02/2023 10:56 AM EDT [facility] Name: Indira Roque Date of : 1970 AGE: 53 y.o. Address: [address] [place] [phone] (home) [phone] (work) Mobile: Telephone Information: Referring Provider: Pat [...] groin Right Groin Closure device used: Pro [place] Time sheath removed: 13:12 Time of hemostasis: [...] of : 1970 AGE: 53 y.o. [facility] [address] [facility] [phone] (home) [phone] (work) Mobile: Telephone Information: Referring Provider: Pat [...] PM EDT Office Visit Cardiology at [address] [address] Jaspreet Kinsey MD [facility] [place] [address] 10/28/2023 9:00 AM EDT Office [place] [address] 10/29/2023 10:00 AM EDT Clinical [place] [address] 10/29/2023 10:15 AM EDT Procedure [place] [address] 11/01/2023 5:00 PM EDT Office Visit Gastroenterology at [place] [phone] Selene Browning, PhD [facility] [address] 11/22/2023 4:40 PM EDT Office Visit Cardiology at [address] [phone] Posrha Mcdaniels MD [facility] [place] [address] 12/13/2023 10:00 AM EDT Clinical Support [place] [phone] [facility] [place] [address] documented as of this encounter Procedures Procedure [...] mg documented in this encounter Care Teams Gas Producer Relationship Specialty Start Date End Date Polo Pearce PA [address] [place] [address] PCP - General Internal Medicine 06/09/21 documented as of this encounter
--- OUTSIDE RECORDS SUMMARY | 2023-10-22 00:40 | XMS_ITS | Encounter Summary ---
Author Organization [facility] [place] [address] Care Team Providers Care Cattle Examiner Name Role Phone Polo Pearce Primary Care Provider [phone] Encounter Details Date Type Department Care Team [...] PM EDT Office Visit Cardiology at [address] [phone] Jaspreet Kinsey MD [facility] [place] [address] 10/28/2023 9:00 AM EDT Office [place] [address] 10/29/2023 10:00 AM EDT Clinical Support [place] [address] 10/29/2023 10:15 AM EDT Procedure visit [place] [address] 11/01/2023 5:00 PM EDT Office Visit [place] [phone] Selene Browning, PhD [facility] [place] [address] 11/22/2023 4:40 PM EDT Office Visit Cardiology at [address] [phone] Porsha Mcdaniels MD [facility] [place] [address] 12/13/2023 10:00 AM EDT Clinical Support Gastroenterology at [facility] [place] [phone] [facility] [place] [address] documented as of this encounter Visit Diagnoses Not on filedocumented in this encounter Care Teams Cattle Examiner Relationship Specialty Start Date End Date Polo Pearce PA [address] [place] [address] PCP - General Internal Medicine 06/09/21 documented as of this encounter
--- OUTSIDE RECORDS SUMMARY | 2023-10-22 00:40 | XMS_ITS | Encounter Summary ---
[place] [address] Care Team Providers Care Credit Union Manager Name Role Phone Polo Pearce Primary Care Provider [phone] Encounter Details Date Type Department Care Team (Late st Contact Info) Description 06/14/2023 External [place] [phone] Social History Tobacco Use Types Packs/Day Years [...] a long term (including now)? No 06/15/2023 IPV Inpatient Questions [...] PM EDT Office Visit Cardiology at [address] [place] [address] Jaspreet Kinsey MD [facility] [place] [address] 10/28/2023 9:00 AM EDT Office [place] [address] 10/29/2023 10:00 AM EDT Clinical [place] [address] 10/29/2023 10:15 AM EDT Procedure [place] [address] 11/01/2023 5:00 PM EDT Office [place] [address] Selene Browning, PhD [facility] [place] [address] 11/22/2023 4:40 PM EDT Office Visit Cardiology at [address] [phone] Porsha Mcdaniels MD [facility] [place] [address] 12/13/2023 10:00 AM EDT Clinical [place] [phone] [facility] [place] [address] documented as of this encounter Procedures Procedure Name Priority Date/Time Associated Diagnosis Comments ECG SCAN Routine 06/14/2023 11:24 AM EDT documented in this encounter Results * Scan Doc: ECG (06/14/2023 11:24 AM EDT) Historical Provider MD FLEMING MGR SCAN EX T ORDR/RSLT documented in this encounter Visit Diagnoses Not on filedocumented in this encounter Care Teams Credit Union Manager Relationship Specialty Start Date End Date Polo Pearce PA [address] [place] [address] PCP - General Internal Medicine 06/09/21 documented as of this encounter
--- OUTSIDE RECORDS SUMMARY | 2023-10-22 00:40 | XMS_ITS | Encounter Summary ---
Author Organization [facility] Address [facility] [place] [address] Care Team Providers Care Drawing Tracer Name Role Phone Polo Pearce Primary Care Provider [phone] Encounter Details Date Type Department Care Team (Late st Contact Info) Description 06/14/2023 Telephone Cardiology at [address] [phone] Sarah Kahn, SHIPPER/RECEIVER [facility] [place] [address] Social History Tobacco Use Types Packs/Day Years Used Date Smoking Tobacco: Never Smokeless Tobacco: Never Alcohol Use Standard Drinks/Week Comments Never 0 (1 standard drink = 0.6 oz pur e alcohol) [facility] Utilities Answer Date Recorded In the past 12 months has everyArt, gas, oil, or water Jamn threatened to shut off services in your [...] AM Referring Provider: Dr. Iyer Patient Location: [facility] Past Medical History: Mild, nonobstructive CAD, s/p [facility] 04/2023 for similar presentation SVT s/p [...] showed no evidence of inflammation/sarcoid. Troponin at [facility] at the time of her event [...] or examined this patient. Sarah Kahn, MICHELL, REGIONAL DIRECTOR-BC, SHIPPER/RECEIVER [facility] Cardiovascular Medicine documented in this encounter Plan of Treatment Upcoming Encounters Date Type Department Care Team (Late st Contact Info) Description 10/26/2023 4:00 PM EDT Office Visit Cardiology at [address] [phone] Jaspreet Kinsey MD [facility] [place] [address] 10/28/2023 9:00 AM EDT Office [place] [address] 10/29/2023 10:00 AM EDT Clinical [place] [address] 10/29/2023 10:15 AM EDT Procedure [place] [address] 11/01/2023 5:00 PM EDT Office [place] [address] Selene Browning, PhD [facility] [place] [address] 11/22/2023 4:40 PM EDT Office Visit Cardiology at [address] [phone] Porsha Mcdaniels MD [facility] [place] [address] 12/13/2023 10:00 AM EDT Clinical [place] [phone] Lucero Romero, ALVA [facility] [place] [address] documented as of this encounter Visit Diagnoses Not on filedocumented in this encounter Care Teams Drawing Tracer Relationship Specialty Start Date End Date Polo Pearce PA Sb MOTT [address] [place] [id number] PCP - General Internal Medicine 06/09/21 documented as of this encounter
--- OUTSIDE RECORDS SUMMARY | 2023-10-22 00:41 | XMS_ITS | Encounter Summary ---
[place] [address] Care Team Providers Care Fast Brim Pouncer Name Role Phone Polo Pearce Primary Care Provider [phone] Reason for Referral * Diagnostic Test (Routine) - Closed Specialty Diagnoses / Procedures Referred By Jayant harris Referred To Contact Radiology Diagnoses Chest pain, unspecified type Procedures NM PET CT Cardiac Sarcoid Maegan Mike NATUROPATHIC PHYSICIAN [facility] [place] [address] [place] [address] Referral ID Status Reason Start Date Expiration Date V isits Requested Visits Authorized [id number] Closed Specialty Service Requested 04/22/2023 10/20/2024 4 4 Reason for Visit * Diagnostic Test (Routine) - Closed Specialty Diagnoses / Procedures Referred By Contjulita t Referred To Contact Radiology Diagnoses Chest pain, unspecified type Procedures NM PET CT Cardiac Sarcoid Maegan Mike NATUROPATHIC PHYSICIAN [facility] [place] [address] [place] [address] Referral ID Status Reason Start Date Expiration Date V isits Requested Visits Authorized [id number] Closed Specialty Service Requested 04/22/2023 10/20/2024 4 4 Encounter Details Date Type Department Care Team (Latest Contact Info) Description 04/30/2023 11:01 AM EST Hospital Encounter [place] [address] Maegan Mike, [facility] [place] [address] Chest pain, unspecified type Discharge Disposition: Home Social History Tobacco Use Types Packs/Day Years Used Date Smoking Tobacco: Never Smokeless Tobacco: Never Alcohol Use Standard Drinks/Week Comments Never 0 (1 standard drink = 0.6 oz pur e alcohol) [facility] Utilities Answer Date Recorded In [...] in a [facility] (including now)? No 04/19/2023 IPV Inpatient Questions [...] nightly as needed. empagliflozin (Jardiance) 10 mg TabletIndications:[employer] neal heart failure with preserved ejection fraction Take 1 tablet by mouth daily. 90 tablet 1 06/11/2021 rOPINIRole (Requip) 1 mg Tablet Take 2 mg by mouth 2 times daily. 07/16/2020 loratadine (Claritin) 10 mg Tablet Take 10 mg by mouth daily as needed. fluticasone propionate (FLONASE) 50 mcg/actuation [place], Suspension 1 spray by Each Nare route [...] PM EDT Office Visit Cardiology at [address] [phone] Jaspreet Kinsey MD [facility] [place] [address] 10/28/2023 9:00 AM EDT Office [place] [address] 10/29/2023 10:00 AM EDT Clinical [place] [address] 10/29/2023 10:15 AM EDT Procedure [place] [address] 11/01/2023 5:00 PM EDT Office Visit [place] [address] Selene Browning, PhD [facility] [place] [address] 11/22/2023 4:40 PM EDT Office Visit Cardiology at [address] [phone] Porsha Mcdaniels MD [facility] [place] [address] 12/13/2023 10:00 AM EDT Clinical Support [place] [address] Lucero Romero, [place] [place] [address] documented as of this encounter Procedures Procedure [...] who have questions please contact the health respiratory care specialist that requested your imaging first. ? 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 Following IV administration of 26.5 mCi technetium 99m sestamibi, SPECT-CT of the heart was obtained. Following IV injection of 8.8 mCi 03-qnagiv-2-deoxyglucose (FDG) and a standard uptake of approximately [...] obtained. Following IV injection of 8.8 mCi 49-cnvpns-4-deoxyglucose (FDG) and astandard uptake of approximately 60 [...] patients who have questions please contactthe health respiratory care specialist that requested your imaging first. Electronically signed by: Humberto Qureshi MD, [facility]([phone]), at 05/06/2023 11:09 AM Maegan Mike APRN IMG PET ORDERABLE S * POCT Glucose (04/30/2023 12:19 PM EST) Glucose, POC 79 65 - 199 mg/dL [facility] Comment: Supplemental ranges: <140 mg/dL before meals <180 mg/dL all other times of the day Blood 04/30/2023 12:1 9 PM EST 04/30/2023 12:19 PM EST Maegan Mike NATUROPATHIC PHYSICIAN POINT OF CARE LYNETTE T ORDERABLES [facility] [place] [address] documented in this encounter Visit Diagnoses Diagnosis [...] Arm documented in this encounter Care Teams Fast Brim Pouncer Relationship Specialty Start Date End Date Polo Pearce PA [address] [place] [address] PCP - General Internal Medicine 06/09/21 documented as of this encounter
--- OUTSIDE RECORDS SUMMARY | 2023-10-22 00:41 | XMS_ITS | Encounter Summary ---
Author Organization [facility] [place] [address] Care Team Providers Care Senior Etl Developer Name Role Phone Polo Pearce Primary Care Provider [phone] Reason for Visit * Auth/Cert (Routine) Specialty Diagnoses / Procedures Referred By Jayant harris Referred To Contact Diagnoses NSTEMI (non-ST elevated myocardial infarction) NSTEMI Procedures ER Lloyd Pantoja MD [facility] [place] [address] [place] [address] [facility] Referral ID Status Reason Start Date Expiration Date Visits Re quested Visits Authorized [id number] 1 1 Encounter Details Date Type Department Care Team (Late st Contact Info) Description 04/18/2023 9:00 AM EST - 04/18/2023 10:04 AM EST [place] [address] Dustin Carrasco MD [facility] [place] [place] [address] CARDIAC CATHETERIZATION Social History Tobacco Use Types Packs/Day Years Used Date Smoking Tobacco: Never Smokeless Tobacco: Never Alcohol Use Standard Drinks/Week Comments Never 0 (1 standard drink = 0.6 oz pur e alcohol) [facility] Utilities Answer Date Recorded In the past 12 months has [employer], oil, or water [employer] threatened to shut off services in your [...] Loida Madrigal Patient Age: 53 y.o. Language: Ghanaian Admit date: 04/16/2023 Discharge date and time: [...] lung disease secondary to obesity transferred from [facility] for further evaluation of exertional chest pressure and breathlessness. Abnormal OSH troponin 500 and repeat HS Trop at [facility] peak 27 with flat trend and [...] discharge Inpatient Provider Contact Information: Cardiovascular Medicine [phone] Discharge Diagnoses (Hospital Problems) and Secondary Diagnoses [...] motion has increased. CTA PE protocol at [facility]- no PE but showed small pericardial effusion and some GG opacities. History of Presentation: Loida Madrigal is a 53 y.o. with hx of paroxysmal A-fib (diagnosed on 10/20/2022), pulmonary emboli on Eliquis, HFpEF (EF of 59%), supraventricular tachycardia (AVNRT since 06/2021) s/p EPS and SVTablation on 04/01/[address] Tovar on [facility], restrictive lung disease secondary to obesity presents from [facility] with complains of chest discomfort that started overnight. The patient has been experiencing ongoing chest pain, prompting admission on 02/11/23 primarily due to concerns about a NSTEMI indicated by elevated troponin levels and EKG changes noted at OSH. However, the observed EKG changes remained largely consistent with previous recordings. Troponin levels at [facility] showed a plateau at 23 > [...] again 10/15, improving with sublingua Nitro. At [facility] Vitals: HR 48, BP 115/42, [...] #Acute on chronic HFpEF Patient presented to [facility] on 04/16 with chest pain responsive to SL NTG. Troponin ~500x2. Transferredto [facility] for further evaluation. Troponin at [facility], 24>23 w/ repeat peak 27->26. She reported [...] days. Refills: 0 fluticasone propionate 50 mcg/actuation [place], Suspension Commonly known as: Flonase 1 spray [...] 9:40 AM Jaspreet Kinsey MD Cardiology at [place] Arrive at: [facility] [address] [phone] 09/21/2023 3:00 PM Jaspreet Kinsey MD Cardiology at [place] Arrive at: [facility] [address] [phone] Discharge References/Attachments None Greater than 30 minutes was spent on this discharge including documentation, [id number] time withthe patient, patient education, border measurer and cutter, coordination with pharmacy and other patient care. [...] away. Stay on the phone. The emergency tab machine operator will tell you what to [...] of 8AM-5PM please call the Cardiology Clinic [phone] to speak with a nurse. All other hours please call the Hospital Shape Brick Molder [phone] and ask to speak to the order manager on-call. Return to work: One week Follow up Appointments: Doctor Where Phone # Date Time PCP JOCY Franco [address] [place] [address] 04/28/2023 7:[address] Kinsey [facility] [address] 05/10/2023 9:40 AM * Attachments The following attachments cannot be sent through Care Everywhere. * Coronary Angiogram: Post-op (Ghanaian) documented in this encounter Medications at Time [...] nightly as needed. empagliflozin (Jardiance) 10 mg TabletIndications:Inspector Balance Truing neal heart failure with preserved ejection fraction Take 1 tablet by mouth daily. 90 tablet 1 06/11/2021 rOPINIRole (Requip) 1 mg Tablet Take 2 mg by mouth 2 times daily. 07/16/2020 loratadine (Claritin) 10 mg Tablet Take 10 mg by mouth daily as needed. fluticasone propionate (FLONASE) 50 mcg/actuation [place], Suspension 1 spray by Each Nare route [...] reviewed with pt, pt wheeled to d/c [facility]. I agree with [...] note were not included. CARDIOLOGY APP1 - [facility] DAILY PROGRESS NOTE Page [phone] to reach a provider 28/09 Admit Date: [...] disease secondary to obesity who presented to [facility] on 04/16 with chest pain responsive to SL NTG. Troponin ~500x2. Transferred to [facility] for further evaluation. Troponin at [facility], 24>23. Reports exertional chest pressure and dyspnea [...] and no pericardial effusion. She underw ent [facility] on 04/18 which showed non-obstructive ASCVD. Initiated [...] Cardiopulmonary Resuscitation - Inpatient Disposition: [facility] Basic Mobility Raw Score: 24 PT: OT: PCP JOCY Franco [phone] Discussed with MD Kurt Ray PA-C APP1 pager [phone] 04/22/2023 CV HOSPITALIST ADDENDUM Date of Service: [...] 04/21/2023 6:10 PM EST CARDIOLOGY APP1 - [facility] DAILY PROGRESS NOTE Page [phone] to reach a provider 28/09 Admit Date: [...] 12 CRP <=4.9 mg/L <3.0 <3.0 OSH [facility] troponin ~500. Telemetry: I have [...] disease secondary to obesity who presented to [facility] on 04/16 with chest pain responsive to SL NTG. Troponin ~500x2. Transferred to [facility] for further evaluation. Troponin at [facility], 24>23. Reports exertional chest pressure and dyspnea [...] occur Diet: Daily Healthy Menu Choices/Cardiac diet ([facility]-Diet) 2 GM NA DVT Prophylaxis: DOAC Code status: Attempt Cardiopulmonary Resuscitation - Inpatient Disposition: Discharge Location: [facility] Basic Mobility Raw Score: 22 PT: OT: PCP JOCY Franco [phone] * Eufemia Copeland MD - 04/20/2023 4:34 PM EST CARDIOLOGY APP1 - [facility] DAILY PROGRESS NOTE Page [phone] to reach a provider 28/09 Admit Date: [...] 12 CRP <=4.9 mg/L <3.0 <3.0 OSH [facility] troponin ~500. Telemetry: I have [...] disease secondary to obesity who presented to [facility] on 04/16 with chest pain responsive to SL NTG. Troponin ~500x2. Transferred to [facility] for further evaluation. Troponin at [facility], 24>23. Reports exertional chest pressure and dyspnea [...] occur Diet: Daily Healthy Menu Choices/Cardiac diet ([facility]-Diet) 2 GM NA; 2000 mL FLUID DVT Prophylaxis: DOAC Code status: Attempt Cardiopulmonary Resuscitation - Inpatient Disposition: Discharge Location: [facility] Basic Mobility Raw Score: 24 PT: OT: PCP JOCY Franco [phone] * Carrol La PA - 04/19/2023 12:32 PM EST CARDIOLOGY APP1 - [facility] DAILY PROGRESS NOTE Page [phone] to reach a provider 28/09 Admit Date: [...] 12 CRP <=4.9 mg/L <3.0 <3.0 OSH [facility] troponin ~500. EKG: Sinus bradycardia, 47 bpm, PAC, possible left atrial enlargement, possible lateral infarct, QTc 511. Telemetry: I have personally reviewed and interpreted the telemetry from the last 24 hours. Resultsshow sinus bradycardia with HR 50s, PVCs, heart rate climbs to 70s with activity.. Imaging: [facility] 04/18/23 Conclusions: * Nonobstructive coronary artery disease [...] motion has increased. CTA PE protocol at [facility]- no PE but showed small [...] acute aortopathy. 4. No acute pulmonary findings. [facility] 06/09/2021-RA 4, PA 38/15 (24) PCWP 11, CO/CI 3.14/1.6. [facility] 08/30/2019-normal coronary arteries. Assessment & Plan: Loida [...] disease secondary to obesity who presented to [facility] on 04/16 with chest pain responsive to SL NTG. Troponin ~500x2. Transferred to [facility] for further evaluation. Troponin at [facility], 24>23. Reports exertional chest pressure and dyspnea [...] and no pericardial effusion. She underw ent [facility] on 04/18 which showed non-obstructive ASCVD. Unclear [...] continues. Diet: Daily Healthy Menu Choices/Cardiac diet ([facility]-Diet) 2 GM NA; 2000 mL FLUID DVT Prophylaxis: DOAC Code status: Attempt Cardiopulmonary Resuscitation - Inpatient Disposition: [facility]charge [facility]: [facility] Basic Mobility Raw Score: 24 PT: OT: PCP JOCY Franco [phone] Discussed with MD Carrol Aly PA-C APP1 Pager: [phone] 04/19/2023 Alex Albarran RCP - 04/18/2023 10:10 [...] note were not included. CARDIOLOGY APP1 - [facility] DAILY PROGRESS NOTE Page [phone] to reach a provider 28/09 Admit Date: [...] breathlessness. Awaiting cardiac catheterization potentially today if Insurance Salesman availability allows.She remains on ACS therapies. Medications: [...] 12 CRP <=4.9 mg/L <3.0 <3.0 OSH [facility] troponin ~500. EKG: Sinus bradycardia, [...] motion has increased. CTA PE protocol at [facility]- no PE but showed small [...] lung disease secondary to obesity presents from [facility] with complains of exertional chest pressure [...] or NTG drip if ongoing chest pain -[facility] 04/18 depending on Insurance Salesman availability. #Hx of pAfib #Hx of AVNRT [...] Score: 24 PT: OT: PCP JOCY Franco [phone] Discussed with MD Kurt Sheppard PA-C APP1 pager [phone] 04/18/2023 * Kurt Silveira PA - 04/17/2023 7:15 AM EST Images from the original note were not included. CARDIOLOGY APP1 - [facility] DAILY PROGRESS NOTE Page [phone] to reach a provider 28/09 Admit Date: [...] 12 CRP <=4.9 mg/L <3.0 <3.0 OSH [facility] troponin ~500. EKG: Sinus bradycardia, [...] motion has increased. CTA PE protocol at [facility]- no PE but showed small [...] acute aortopathy. 4. No acute pulmonary findings. [facility] 06/09/2021-RA 4, PA 38/15 (24) PCWP 11, CO/CI 3.14/1.6. [facility] 08/30/2019-normal coronary arteries. Assessment & Plan: Loida [...] lung disease secondary to obesity presents from [facility] with complains of exertional chest pressure [...] or NTG drip if ongoing chest pain -[facility] 04/18 or 04/19 depending on Insurance Salesman availability. #Hx of pAfib #Hx of AVNRT sp EPS and Ablation - hold eliquis. Last taken on 04/16/23 am. - Continue IV heparin. # Hx of PE- continue with IV heparin Diet: No diet orders on file DVT Prophylaxis: DOAC Code status: Attempt Cardiopulmonary Resuscitation - Inpatient Disposition: Discharge Location: [facility] Basic Mobility Raw Score: 14 PT: OT: PCP JOCY Franco [phone] Discussed with MD Kurt Sheppard PA-C APP1 pager [phone] 04/17/2023 documented in this encounter H&P Notes [...] 04/01/[address] Tovar on [facility], restrictive lung disease secondary to obesity presents from [facility] with complains of chest discomfort that started overnight. The patient has been experiencing ongoing chest pain, prompting admission on 02/11/23 primarily due to concerns about a NSTEMI indicated by elevated troponin levels and EKG changes noted at OSH. However, the observed EKG changes remained largely consistent with previous recordings. Troponin levels at [facility] showed a plateau at 23 > [...] again 10/15, improving with sublingua Nitro. 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 fluticasone propionate (FLONASE) 50 mcg/actuation [place], Suspension 1 spray by Each Nare route [...] 04/01/[address] Tovar on [facility], restrictive lung disease secondary to obesity presents from [facility] with complains of chest discomfort that [...] (see comments), grab bar - tub/shower ([employer]) DME Needed at Discharge: N/A Patient is insured through: Primary Insurance: [employer] Payor: [employer] / Plan[place] / Product Type: *No Product type* / Secondary Insurance: N/A Prescription Coverage: Yes This plan was formulated with input from patient and team. All are in agreement with plan. * Consult Note - Maegan Mike APRN - 04/22/2023 10:38 AM EST Images from the original note were not included. [facility] [place] [id number] INPATIENT CARDIOLOGY CONSULT PROGRESS NOTE Interval events: [...] insights. Discussed with MD Maegan De Leon, TRAM DRIVER Pager [phone] 04/22/2023 Associated attestation - Jaspreet Kinsey MD [...] Tatum MSW - 04/20/2023 2:22 PM EST SALES AMBASSADOR received a consult to support patient with financial concerns. SALES AMBASSADOR met with patient and introduced self. Patient stated due to hospitalization, she has been out of work and feeling stress around not being able to pay bills. I have a car payment and other bills and it's like I have to choose which one to pay and which one not to pay. SALES AMBASSADOR validated patient's stress around financial concerns. SALES AMBASSADOR asked patient if she has applied for [employer] or any other state benefits. Patient stated that she has, but is over the household income criteria to qualify for benefits. Patient shared that she owns her home outright and mainly concerned about making her car payment and transportation home. MSWstated that care management will help arrange for a ride, if needed. SALES AMBASSADOR provided patient with community resources such as the [facility] Food Directory, the [facility] Community Action phone number, and the [facility] [place] contact info. SALES AMBASSADOR available to support patient should anything else [...] Admitted From: Transfer from another hospital Location: [facility] Reason for Hospitalization: chest pain and cough Covid Vaccination Status: 1st, 2nd & booster Last COVID test: Lab Results Component Value Date [id number] Not Detected 06/13/2021 Past medical History: Past [...] shut off services in your home?: Yes ([employer] is currently threatening to shut off electricity [...] (see comments), grab bar - tub/shower ([employer] [facility] [facility]) Home Address confirmed as: [address] [address] Social & Family Supports: All names listed [...] Specific Information: N/A Health/Prescription Coverage: Primary Insurance: [employer] [place] Payor: [employer] [place] / Plan: [place] / Product Type: *No Product type* / Secondary Insurance: N/A ; Prescription Coverage: Yes Preferred Pharmacy: [id number] - [place], [place] - [address] [id number] [facility] - [place], [place] - [address] [facility] [address] Status: Patient is a : No Primary Care Provider confirmed: JOCY Franco [phone] Patient/Caregiver Goals of Treatment: home w / family when MR Potential Needs for Transition of Care: other (see comments) (SALES AMBASSADOR support; pt's spouse was denied twice for [...] Concerns to be Addressed: financial/insurance, discharge planning; SALES AMBASSADOR consult placed to discuss available resources Assessment: Patient is admitted to [facility] service for NSTEMI Plan: pending clinical course, [...] [facility] [place] [address] INPATIENT CARDIOLOGY CONSULT NOTE Reason for Consult: [...] ACS with DAPT and heparin prior to [facility] 04/18, which was negative for any obstructive [...] Went to cathlab, came back ~1115am, s/p [facility] with no coronary artery disease seen. Right [...] for further details. JOCY Marie 04/17/2023 Pager [phone] * Plan of Care - Sudhakar Smith [...] PM EDT Office Visit Cardiology at [address] [phone] Jaspreet Kinsey MD [facility] [place] [address] 10/28/2023 9:00 AM EDT Office [place] [address] 10/29/2023 10:00 AM EDT Clinical [place] [address] 10/29/2023 10:15 AM EDT Procedure [place] [address] 11/01/2023 5:00 PM EDT Office [place] [phone] Selene Browning, PhD [facility] [place] [address] 11/22/2023 4:40 PM EDT Office Visit Cardiology at [address] [phone] Porsha Mcdaniels MD [facility] [place] [address] 12/13/2023 10:00 AM EDT Clinical [place] [phone] Lucero Romero, [facility] [place] [address] documented as of this encounter Procedures Procedure [...] AM EST CRP, ACUTE INFLAMMATION Routine 04/17/19 3:33 AM EST HEMOGRAM Routine 04/17/2023 3:33 AM EST DIFFERENTIAL, AUTOMATED Routine 04/17/19 3:33 AM EST HC PARTIAL THROMBOPLASTIN TIME [...] signed by: Humberto Qureshi MD, [facility] ([phone]), at 05/06/2023 11:09 AM Narrative 05/06/2023 11:09 AM EST EXAMINATION: NM PET CT CARDIAC SARCOID CLINICAL HISTORY: 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 Following IV administration of 26.5 mCi technetium 99m sestamibi, SPECT-CT of the heart was obtained. Following IV injection of 8.8 mCi 47-tvqsfu-1-deoxyglucose (FDG) and a standard uptake of approximately [...] obtained. Following IV injection of 8.8 mCi 69-fjilfo-4-deoxyglucose (FDG) and astandard uptake of approximately 60 [...] signed by: Humberto Qureshi MD, [facility]([phone]), at 05/06/2023 11:09 AM Maegan Mike TRAM DRIVER IMG PET ORDERABLE S * MRI Cardiac [...] care provider that requested your imaging first. Lloyd Maloney MD IMG MRI ORDERABLES * Hemogram (04/21/2023 3:40 AM EST) White Blood Cell 7.1 4.0 - 9.5 x10(3)/[facility] LABORATORY Red Blood Cell 4.59 4.00 - 5.21 x10(6)/[facility] LABORATORY Hemoglobin 14.4 11.7 - 15.5 g/dL [facility] Hematocrit 43.0 35.7 - 45.8 % [facility] Mean Cell Volume 93.7 82.6 - 94.4 fL [facility] Mean Cell Hemoglobin 31.4 27.1 - 32.0 pg [facility] Mean Cell Hemoglobin Concentration 33.5 31.7 - 35.0 g/dL [facility] Platelet 221 145 - 357 x10(3)/[facility] LABORATORY RDW Standard Deviation 43.5 37.0 - 46.0 fL [facility] RDW coefficient of variation 12.6 11.5 - 14.1 % [facility] Mean Platelet Volume 11.1 7.6 - 12.9 fL [facility] NRBC% auto 0.0 % [facility] LABOR[facility] NRBC Absolute 0.000 0.000 - 0.000 x10(3)/[facility] LABORATORY Blood 04/21/2023 3:40 AM EST 04/21/2023 3:58 AM EST Narrative Resulting Agency Comment Spec In Lab Ailyn Knight MD HEMATOLOGY ORDERABLE S [facility] [place] [address] * (ABNORMAL) BMP w/fasting Glucose (04/21/2023 3:40 AM EST) [facility] Signature Glucose Fasting 107(H) 65 - 99 mg/dL [facility] Comment: ?Fasting* Glucose Interpretive Criteria [...] of Diabetes Mellitus, Position Statement from the [place] Diabetes Association. ??Diabetes Care, Volume 33, Supplement 1, Mar 2009 Blood Urea Nitrogen 20(H) 8 - 18 mg/dL [facility] Creatinine 1.14 0.70 - 1.20 mg/dL [facility] Sodium 138 135 - 145 mmol/L [facility] Potassium 3.8 3.5 - 5.0 mmol/L [facility] Comment: Please note: ??Patients with WBC >100,000 may have falsely elevated Potassium levels. ??For accurate Potassium quantification in these patients send serum separator tube (gold top) for subsequent determinations. ??Contact the Clinical Chemistry Laboratory if there are any questions. Chloride 106 98 - 107 mmol/L [facility] Carbon Dioxide 22 22 - 31 mmol/L [facility] Anion Gap 10 5 - 15 mmol/L [facility] Calcium 9.2 8.5 - 10.5 mg/dL [facility] Est Glomerular Filtration Rate 57(L) >=60 mL/min/1. 73 m?? [facility] Comment: This patient's estimated GFR [...] Knight MD CHEMISTRY ORDERABLES Performing Organization Address [facility] Co de Phone Number [facility] [place] [address] * Magnesium (04/21/2023 3:40 AM EST) Magnesium 0.90 0.69 - 1.07 mmol/L [facility] Blood 04/21/2023 3:40 AM EST 04/21/2023 3:58 AM EST Narrative Resulting Agency Comment Spec In Lab Ailyn Knight MD CHEMISTRY ORDERABLES Performing Organization Address [facility] de Phone Number [facility] [place] [address] * (ABNORMAL) Troponin (04/20/2023 4:44 PM EST) Troponin-T, High Sensitivity 26(H) <=14 ng/L [facility] Comment: This patient's troponin T [...] can be found in the [facility] Laboratory Test Catalog Troponin - [facility] Laboratory Test Catalog Reference: Fourth [place] Definition of Myocardial Infarction. Journal of the [place] College of Cardiology 2018;72:7852-0309 Blood 04/20/2023 4:44 PM EST 04/20/2023 4:53 PM EST Narrative Resulting Agency Comment Spec In Lab Eufemia Copeland MD CHEMISTRY ORDERABL ES Performing Organization Address [facility]/[place] [address] * Duplex for DVT, Arm, Unilat (04/20/2023 4:22 PM EST) VB Text Report Department: Vascular Surgery Lab Patient: [id number] (LOIDA MADRIGAL) CPT: 61452 Referring Physician: LLOYD MALONEY ?? Phone: Indications: [...] PM EST Lloyd Maloney MD VASCULAR ORDERABLES VASCUBASE * (ABNORMAL) Troponin (04/20/2023 1:47 PM EST) Troponin-T, High Sensitivity 27(H) <=14 ng/L [facility] Comment: This patient's troponin T [...] can be found in the [facility] Laboratory Test Catalog Troponin - [facility] [facility] Test Catalog Reference: Fourth [place] Definition of Myocardial Infarction. Journal of the [place] [employer] 2018;72:8403-4699 Blood 04/20/2023 1:47 PM EST 04/20/2023 2:18 PM EST Narrative Resulting Agency Comment Spec In Lab Eufemia Copeland MD CHEMISTRY ORDERABL ES Performing Organization Address City/[facility] Co de Phone Number [facility] [place] [address] * (ABNORMAL) Troponin (04/20/2023 10:48 AM EST) Troponin-T, High Sensitivity 24(H) <=14 ng/L [facility] Comment: This patient's troponin T [...] can be found in the [facility] Test Catalog Troponin - [facility] Test Catalog Reference: Fourth [place] Definition of Myocardial Infarction. Journal of the [place] [employer] 2018;72:1444-4749 Blood 04/20/2023 10:4 8 AM EST 04/20/2023 11:03 AM EST Narrative Resulting Agency Comment Spec In Lab Eufemia Copeland MD CHEMISTRY ORDERABL ES [facility] [place] [address] * EKG 12 Lead (04/20/2023 10:23 AM EST) Ventricular rate 60 BPM MUSE SYSTEM Atrial Rate 60 BPM MUSE SYSTEM P-R Interval 170 ms MUSE SYSTEM QRS Duration 86 ms MUSE SYSTEM Q-T Interval 470 ms MUSE SYSTEM QTC Calculated (Bezet) 470 ms MUSE SYSTEM Calculated P [place] 39 degrees MUSE SYSTEM Calculated R [place] 63 degrees MUSE SYSTEM Calculated T [place] -16 degrees MUSE SYSTEM INTERPRETATION Normal sinus [...] leads Confirmed by MD Benitez Gregory A. ([id number]) on 04/22/2023 12:10:07 PM MUSE SYSTEM 04/20/2023 10:2 3 AM EST 04/22/2023 12:10 PM EST Lloyd Maloney MD ECG ORDERABLES MUSE SYSTEM * Hemogram (04/20/2023 3:11 AM EST) White Blood Cell 6.6 4.0 - 9.5 x10(3)/[facility] LABORATORY Red Blood Cell 4.59 4.00 - 5.21 x10(6)/[facility] LABORATORY Hemoglobin 14.2 11.7 - 15.5 g/dL [facility] Hematocrit 42.7 35.7 - 45.8 % [facility] Mean Cell Volume 93.0 82.6 - 94.4 fL [facility] Mean Cell Hemoglobin 30.9 27.1 - 32.0 pg [facility] Mean Cell Hemoglobin Concentration 33.3 31.7 - 35.0 g/dL [facility] Platelet 231 145 - 357 x10(3)/[facility] LABORATORY RDW Standard Deviation 43.6 37.0 - 46.0 fL [facility] RDW coefficient of variation 12.6 11.5 - 14.1 % [facility] Mean Platelet Volume 11.0 7.6 - 12.9 fL [facility] NRBC% auto 0.0 % [facility] NRBC Absolute 0.000 0.000 - 0.000 x10(3)/[facility] LABORATORY Blood 04/20/2023 3:11 AM EST 04/20/2023 3:24 AM EST Narrative Resulting Agency Comment Spec In Lab Ailyn Knight MD HEMATOLOGY ORDERABLE S [facility] [place] [address] * (ABNORMAL) BMP w/fasting Glucose (04/20/2023 3:11 AM EST) Glucose Fasting 107(H) 65 - 99 mg/dL [facility] Comment: ?Fasting* Glucose Interpretive Criteria [...] of Diabetes Mellitus, Position Statement from the [place] [employer]. ??Diabetes Care, Volume 33, Supplement 1, Mar 2009 Blood Urea Nitrogen 20(H) 8 - 18 mg/dL [facility] Creatinine 1.05 0.70 - 1.20 mg/dL [facility] Sodium 139 135 - 145 mmol/L [facility] Potassium 3.6 3.5 - 5.0 mmol/L [facility] Comment: Please note: ??Patients with WBC >100,000 may have falsely elevated Potassium levels. ??For accurate Potassium quantification in these patients send serum separator tube (gold top) for subsequent determinations. ??Contact the Clinical Chemistry Laboratory if there are any questions. Chloride 106 98 - 107 mmol/L [facility] Carbon Dioxide 21(L) 22 - 31 mmol/L [facility] Anion Gap 12 5 - 15 mmol/L [facility] Calcium 9.3 8.5 - 10.5 mg/dL [facility] Est Glomerular Filtration Rate 63 >=60 mL/min/1. 73 m?? [facility] Comment: This patient's estimated GFR [...] [facility]/ZIP Co de Phone Number [facility] [place] [address] * Magnesium (04/20/2023 3:11 AM EST) Magnesium 0.91 0.69 - 1.07 mmol/L [facility] Blood 04/20/2023 3:11 AM EST 04/20/2023 3:24 AM EST Narrative Resulting Agency Comment Spec In Lab Ailyn Knight MD CHEMISTRY ORDERABLES Performing Organization Address [facility] Co de Phone Number [facility] [place] [address] * Respiratory Panel PCR (04/19/2023 2:05 PM EST) Pathologist [facility] Respiratory Panel Source [employer] [facility] Respiratory Panel PCR Negative Negative [facility] Comment: Respiratory Panels are performed on the [employer], using multiplexed PCR nucleic acid detection. ??Negative results do not preclude respiratory infection and should not be used as the sole basis for diagnosis, treatment or other management decisions. Adenovirus Not Detected Not Detected [facility] Coronavirus HKU1 Not Detected Not Detected [facility] Coronavirus NL63 Not Detected Not Detected [facility] Coronavirus 229E Not Detected Not Detected [facility] Coronavirus OC43 Not Detected Not Detected [facility] SARS-CoV-2 Not Detected Not Detected [facility] Comment: Testing for SARS-CoV-2 (Severe acute respiratory syndrome coronavirus 2) to aid in the diagnosis of COVID-19 is performed using the BioFire Respiratory Panel 2.1 ([employer]) as authorized by the FDA issued Emergency Use Authorization (EUA). This panel also tests for multiple other viral and bacterial pathogens. This assay is intended for In-vitro Diagnostic (IVD) use with nasopharyngeal swabs in viral transport media. The assay is performed based on the instructions for use and additional guidance provided by the FDA. Testing is performed in laboratories within the [facility], each of which is certified under [...] fact sheets at the following FDA website: https://www.fda.gov/medical-devices/lcrjcrochpa-voiavka-3852-mctab-32-fzhoblqbp- use-a xjgbnbwnwkymp-ojvmkij-furcpfj/xsvkj-dvvbcfajpws-ebyk Human Metapneumovirus Not Detected Not Detected [facility] Human Rhinovirus/Enterov irus Not Detected Not Detected [facility] Influenza A Not Detected Not Detected [facility] Influenza B Not Detected Not Detected [facility] Parainfluenza 1 Not Detected Not Detected [facility] Parainfluenza 2 Not Detected Not Detected [facility] Parainfluenza 3 Not Detected Not Detected [facility] Parainfluenza 4 Not Detected Not Detected [facility] Respiratory Syncytial Virus Not Detected Not Detected [facility] Chlamydophila pneumoniae Not Detected Not Detected [facility] Mycoplasma pneumoniae Not Detected Not Detected [facility] Nasopharyngeal Swab Other / Unknown 04/19 2:05 PM EST 04/19/2023 3:16 PM EST Narrative Resulting Agency Comment Spec In Lab Carrol SANDRA MICROBIOLOGY - GENER AL ORDERABLES [facility] [place] [address] * (ABNORMAL) Urine culture (04/19/2023 10:25 AM EST) Urine Culture 10,000-49,000 cfu/ml mixed mucosal elmer Note: Culture shows multiple bacterial species suggesting mucosal contamination. (A) [facility] Clean Catch Urine 04/19/2023 10:25 AM EST 04/19/2023 12:49 PM EST Narrative Resulting Agency Comment Spec In Lab Carrol SANDRA MICROBIOLOGY - GENER AL ORDERABLES Performing Organization Address [facility] Co de Phone Number [facility] [place] [address] * (ABNORMAL) Urinalysis Microscopic Exam (04/19/2023 10:25 AM EST) RBC, Urine 1 0 - 4 /HPF [facility] WBC, Urine 10(H) 0 - 5 /HPF [facility] Squamous Epithelial Cells Raw Data, Urine 4 <=4 /HPF [facility] Hyaline Casts, Urine 1 0 - 2 /LPF [facility] Clean Catch Urine 04/19/2023 10:25 AM EST 04/19/2023 11:08 AM EST Narrative Resulting Agency Comment Spec In Lab Carrol SANDRA URINE ORDERABLES Performing Organization Address City/[facility]/ZIP Co de Phone Number [facility] [place] [address] * (ABNORMAL) Urinalysis with reflex Culture (04/19/2023 10:25 AM EST) Glucose, Urine Dipstick >=1000(Criti edy) Negative mg/dL [facility] Comment: Urinalysis result NOT critical without a combination of Glucose greater than or equal to 500 mg/dL AND Ketones greater than or equal to 80 mg/dL Protein, Urine Dipstick Negative Negative mg/dL [facility] Bilirubin, Urine Dipstick Negative Negative mg/dL [facility] Comment: Clinical correlation required for positive Urine Bilirubin results as false positive may occur with some drugs and drug related products. If a false positive is suspected a serum total bilirubin should be considered if clinically indicated. Urobilinogen, Urine Dipstick Normal Normal mg/dL [facility] pH, Urn (dipstick) 5.5 5.0 - 8.0 [facility] Blood, Urine Dipstick Negative Negative mg/dL [facility] Ketone, Urine Dipstick Negative Negative mg/dL [facility] Nitrite, Urine Dipstick Negative Negative [facility] Leukocytes, Urine Dipstick Small(A) Negative [facility] Appearance, Urine Dipstick Clear Clear [facility] Specific [place] Urine Automated 1.024 1.005 - 1.030 [facility] Color, Urine Dipstick Yellow Yellow [facility] Reflex to Culture Yes [facility] Clean Catch Urine 04/19/2023 10:25 AM EST 04/19/2023 11:08 AM EST Narrative Resulting Agency Comment Spec In Lab Ailyn Knight MD URINE ORDERABLES [facility] [place] [address] * Arterial Duplex Arm, Unilat (04/19/2023 9:40 AM EST) VB Text Report Department: Vascular Surgery Lab Patient: [id number] (LOIDA MADRIGAL) CPT: 17633 Referring Physician: AILYN KINGHT ?? Phone: Indications: Arm tenderness post cardiac [...] White Blood Cell 7.5 4.0 - 9.5 x10(3)/[facility] Red Blood Cell 4.86 4.00 - 5.21 x10(6)/[facility] LABORATORY Hemoglobin 14.8 11.7 - 15.5 g/dL [facility] Hematocrit 45.5 35.7 - 45.8 % [facility] Mean Cell Volume 93.6 82.6 - 94.4 fL [facility] Mean Cell Hemoglobin 30.5 27.1 - 32.0 pg [facility] Mean Cell Hemoglobin Concentration 32.5 31.7 - 35.0 g/dL [facility] Platelet 240 145 - 357 x10(3)/[facility] LABORATORY RDW Standard Deviation 43.8 37.0 - 46.0 fL [facility] RDW coefficient of variation 12.7 11.5 - 14.1 % [facility] Mean Platelet Volume 11.0 7.6 - 12.9 fL [facility] NRBC% auto 0.0 % [facility] NRBC Absolute 0.000 0.000 - 0.000 x10(3)/[facility] LABORATORY Blood 04/19/2023 2:40 AM EST 04/19/2023 2:57 AM EST Narrative Resulting Agency Comment Spec In Lab Ailyn Knight MD HEMATOLOGY ORDERABLE S Performing Organization Address City/State/[facility] Co de Phone Number [facility] [place] [address] * (ABNORMAL) BMP w/fasting Glucose (04/19/2023 2:40 AM EST) Glucose Fasting 106(H) 65 - 99 mg/dL [facility] Comment: ?Fasting* Glucose Interpretive Criteria [...] of Diabetes Mellitus, Position Statement from the [place] [employer]. ??Diabetes Care, Volume 33, Supplement 1, Mar 2009 Blood Urea Nitrogen 22(H) 8 - 18 mg/dL [facility] Creatinine 1.11 0.70 - 1.20 mg/dL [facility] Sodium 139 135 - 145 mmol/L [facility] Potassium 4.0 3.5 - 5.0 mmol/L [facility] Comment: Please note: ??Patients with WBC >100,000 may have falsely elevated Potassium levels. ??For accurate Potassium quantification in these patients send serum separator tube (gold top) for subsequent determinations. ??Contact the Clinical Chemistry Laboratory if there are any questions. Chloride 105 98 - 107 mmol/L [facility] Carbon Dioxide 20(L) 22 - 31 mmol/L [facility] Anion Gap 14 5 - 15 mmol/L [facility] Calcium 9.5 8.5 - 10.5 mg/dL [facility] Est Glomerular Filtration Rate 59(L) >=60 mL/min/1. 73 m?? [facility] Comment: This patient's estimated GFR [...] In Lab Ailyn Knight MD CHEMISTRY ORDERABLES [facility] [place] [address] * Magnesium (04/19/2023 2:40 AM EST) Magnesium 0.97 0.69 - 1.07 mmol/L [facility] Blood 04/19/2023 2:40 AM EST 04/19/2023 2:57 AM EST Narrative Resulting Agency Comment Spec In Lab Ailyn Knight MD CHEMISTRY ORDERABLES [facility] [place] [address] * CARDIAC CATHETERIZATION (04/18/2023 11:05 AM EST) Anatomical Region Laterality Modality Other Narrative 04/19/2023 6:57 AM EST ?[facility] ? Cardiac Catheterization/Intervention Report ? Patient Name: Neisha, Loida ? Procedure Date: 04/18/2023 ? A #: [id number] ? Primary Physician: Danilo, Dustin Alicea ? Case #: [id number] ? File Name: [id number] ? Catheterization Order Number: [id number] ? [facility] ? Final Report [place], [place] ? Patient Name: ? Loida Neisha ? ID#: ?[id number] ? : ?1970 ? Procedure Date: ? April 18, 2023 ?Case #: ? [id number] ? Room: ? 6 ? Case Physician: [...] procedure was Urgent. 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 [...] Procedure Note Dustin Carrasco MD - 05/03/2023 [facility] Cardiac Catheterization/Intervention Report Patient Name: Loida Madrigal Procedure Date: 04/18/2023 A #: [id number] Primary Physician: Dustin Carrasco Case #: [id number] File Name: [id number] Catheterization Order Number: [id number] [facility] FinalReport [place], [place] Patient Name: Loida Madrigal ID#:[id number] :1970 Procedure Date: April 18, 2023 Case [...] patient was designated as ASA Class III. [facility] 4: Vulnerable. [...] diagnostic procedure was Urgent. 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 [...] units of heparin were administered. A total [id number] of Omnipaque were opened, 65cc of Omnipaque were administered [id number] of Omnipaque were wasted. Radiation: Fluoro time [...] 8:23 AM EST) UF Heparin 0.39 IU/mL [facility] Comment: Heparin (anti-Xa) levels should [...] Lab Lloyd Maloney MD HEMATOLOGY ORDERABLE S [facility] [place] [address] * Differential, Automated (04/18/2023 2:10 AM EST) Neutrophil % 51.4 % [facility] Neutrophil Absolute 3.43 1.70 - 6.10 x10(3)/[facility] LABORATORY Lymph % 33.8 % [facility] Lymphocytes Abs 2.2 0.9 - 3.2 x10(3)/[facility] LABORATORY Monocyte % 9.9 % [facility] Monocyte Abs 0.7 0.3 - 0.9 x10(3)/[facility] LABORATORY Eos % 3.9 % [facility] Eosinophils Abs 0.3 0.0 - 0.4 x10(3)/[facility] LABORATORY Basophil % 0.8 % [facility] Baso Absolute 0.0 0.0 - 0.1 x10(3)/[facility] LABORATORY Immature Gran % 0.20 % [facility] Comment: Immature granulocytes(IG's)percentage and absolute count will include metamyelocytes, myelocytes, and promyelocytes. Blood smears from CBCs yielding IG's will be scanned manually for concordance. If this scan disagrees with the automated IG or if promyelocytes are noted, a manual differential will be performed. Immature Gran Absolute 0.01 0.00 - 0.04 x10(3)/[facility] LAB[facility]AT[facility] Blood 04/18/2023 2:10 AM EST 04/18/2023 2:44 AM EST Narrative Resulting Agency Comment Spec In Lab Lloyd Maloney MD HEMATOLOGY ORDERABLE S Performing Organization Address City/[facility] Co de Phone Number [facility] [place] [address] * Hemogram (04/18/2023 2:10 AM EST) White Blood Cell 6.7 4.0 - 9.5 x10(3)/[facility] LABORATORY Red Blood Cell 4.93 4.00 - 5.21 x10(6)/[facility] Hemoglobin 15.2 11.7 - 15.5 g/dL [facility] Hematocrit 44.9 35.7 - 45.8 % [facility] Mean Cell Volume 91.1 82.6 - 94.4 fL [facility] Mean Cell Hemoglobin 30.8 27.1 - 32.0 pg [facility] Mean Cell Hemoglobin Concentration 33.9 31.7 - 35.0 g/dL [facility] Platelet 233 145 - 357 x10(3)/[facility]AT[facility] RDW Standard Deviation 42.0 37.0 - 46.0 fL [facility] RDW coefficient of variation 12.8 11.5 - 14.1 % [facility] Mean Platelet Volume 11.3 7.6 - 12.9 fL [facility] NRBC% auto 0.0 % [facility] NRBC Absolute 0.000 0.000 - 0.000 x10(3)/[facility] Blood 04/18/2023 2:10 AM EST 04/18/2023 2:44 AM EST Narrative Resulting Agency Comment Spec In Lab Lloyd Maloney MD HEMATOLOGY ORDERABLE S Performing Organization Address City/[facility]/ZIP Co de Phone Number [facility] [place] [address] * Heparin (unfractionated) Level (04/18/2023 2:10 AM EST) UF Heparin 0.50 IU/mL [facility] Comment: Heparin (anti-Xa) levels [...] MD HEMATOLOGY ORDERABLE S Performing Organization Address City/State/[facility] Co de Phone Number [facility] [place] [address] * (ABNORMAL) BMP w/fasting Glucose (04/18/2023 2:10 AM EST) Glucose Fasting 98 65 - 99 mg/dL [facility] Comment: ?Fasting* Glucose Interpretive Criteria [...] of Diabetes Mellitus, Position Statement from the [place] [employer]. ??Diabetes Care, Volume 33, Supplement 1, Mar 2009 Blood Urea Nitrogen 23(H) 8 - 18 mg/dL [facility] Creatinine 1.18 0.70 - 1.20 mg/dL [facility] Sodium 143 135 - 145 mmol/L [facility] Potassium 3.6 3.5 - 5.0 mmol/L [facility] Comment: Please note: ??Patients with WBC >100,000 may have falsely elevated Potassium levels. ??For accurate Potassium quantification in these patients send serum separator tube (gold top) for subsequent determinations. ??Contact the Clinical Chemistry Laboratory if there are any questions. Chloride 107 98 - 107 mmol/L [facility] Carbon Dioxide 24 22 - 31 mmol/L [facility] Anion Gap 12 5 - 15 mmol/L [facility] Calcium 9.2 8.5 - 10.5 mg/dL [facility] Est Glomerular Filtration Rate 55(L) >=60 mL/min/1. 73 m?? [facility] Comment: This patient's estimated GFR [...] In Lab Ailyn Knight MD CHEMISTRY ORDERABLES [facility] [place] [address] * Magnesium (04/18/2023 2:10 AM EST) Magnesium 1.02 0.69 - 1.07 mmol/L [facility] Blood 04/18/2023 2:10 AM EST 04/18/2023 2:44 AM EST Narrative Resulting Agency Comment Spec In Lab Ailyn Knight MD CHEMISTRY ORDERABLES [facility] [place] [address] * LDL Cholesterol, Direct (04/18/2023 2:10 AM EST) LDL Cholesterol, Direct 105 mg/dL [facility] Comment: Lowest Risk: <100 mg/dL Lower Risk: 100-129 mg/dL Borderline High Risk: 130-159 mg/dL High Risk: 160-189 mg/dL Very High Risk: >ne=551 mg/dL Blood 04/18/2023 2:10 AM EST 04/18/2023 2:44 AM EST Narrative Resulting Agency Comment Spec In Lab Lloyd Maloney MD CHEMISTRY ORDERABLES [facility] [place] [address] * Hemoglobin A1c (04/18/2023 2:10 AM EST) Hemoglobin A1c 5.6 4.3 - 5.6 % [facility] Comment: Reference Range: 4.3 - [...] Mellitus, Diabetes Care 2013; 36: Suppl. 1, P84-96 Estimated Average Glucose 115 mg/dL [facility] Blood 04/18/2023 2:10 AM EST 04/18/2023 2:44 AM EST Narrative Resulting Agency Comment Spec In Lab Lloyd Maloney MD CHEMISTRY ORDERABLES [facility] [place] [address] * Lipid Panel (Reflex Direct LDL) (04/18/2023 2:10 AM EST) Cholesterol, Total 173 mg/dL [facility] Comment: Lower Risk: <200 mg/dL Average Risk: 200-239 mg/dL Higher Risk: >sd=861 mg/dL Triglyceride 174 mg/dL [facility] Comment: Average Risk/Lower Risk: <150 mg/dL Borderline High Risk: 150-199 mg/dL High Risk: 200-499 mg/dL Very High Risk: >xu=875 mg/dL HDL Cholesterol 44 mg/dL [facility] Comment: Males: ?? Higher Risk: <40 mg/dL Females: ?? Higher Risk: <50 mg/dL LDL Cholesterol 94 mg/dL [facility] Comment: Lowest Risk: <100 mg/dL Lower Risk: 100-129 mg/dL Borderline High Risk: 130-159 mg/dL High Risk: 160-189 mg/dL Very High Risk: >yw=551 mg/dL Cholesterol/HDL Ratio 3.9 ratio [facility] Lipid Interpretation See Note [facility] Comment: Lipid management should be guided by a patient? s ASCVD risk, goals and preferences. ACC/AHA Guidelines recommend high intensity statin if clinical ASCVD or LDL greater than or equal to 190 mg/dL. [email or web address] Adults aged 40-75 with LDL 70-189 mg/dL should have their 10 year ASCVD risk estimated with the ACC/AHA ASCVD risk room attendant http://tools.acc.org/ZCVQP-Erwg-Hrcsuzgbl/ Statin should be discussed if risk greater [...] In Lab Lloyd Maloney MD CHEMISTRY ORDERABLES [facility] [facility] [place] [place] [address] * POCT Glucose (04/17/2023 7:44 PM EST) Glucose, POC 128 65 - 199 mg/dL [facility] Comment: Supplemental ranges: <140 mg/dL before meals <180 mg/dL all other times of the day Blood 04/17/2023 7:44 PM EST 04/17/2023 7:44 PM EST Ailyn Knight MD POINT OF CARE TEST O RDERABLES Performing Organization Address [facility] Co de Phone Number [facility] [place] [address] * (ABNORMAL) Heparin (unfractionated) Level (04/17/2023 6:01 PM EST) UF Heparin 1.14(Crit ical) IU/mL [facility] Comment: Critical Result called by [...] HEMATOLOGY ORDERABLE S Performing Organization Address [facility] Co de Phone Number [facility] [place] [address] * (ABNORMAL) Heparin (unfractionated) Level (04/17/2023 12:45 PM EST) UF Heparin 1.39(Crit ical) IU/mL [facility] Comment: Critical Result called by [...] MD HEMATOLOGY ORDERABLE S Performing Organization Address City/State/[facility] Co de Phone Number [facility] [place] [place] [address] * ECHO LMTD W CONTRAST W LMTD SPEC DOPP COLOR DOPP (04/17/2023 11:59 AM EST) Pathologist [facility] EF 58 HEARTLAB SYSTEM Anatomical Region Laterality Modality Cardiac Other 04/17/2023 10:2 4 AM EST Narrative 04/17/2023 12:09 PM EST [address] [place] [address] ? Echocardiogram Report Name: LOIDA MADRIGAL ? Study Date: 04/17/2023 10:24 AMBP: 114/64 mmHg ? Patient Location: : 1970 ? Height: 160 cm ? Account: [id number] Age: 53 yrs ? Weight: 98 kg Gender: Female ?BSA: 2.0 m2 Ordering Physician: LLOYD MALONEY Referring Physician: LLOYD MALONEY Performed By: HAIM Becerra Reason For Study: Chest pain; NSTEMI Exam Location: [facility]. Interpretation Summary Left ventricle [...] wall motion has increased. Procedure Limited - [id number]. Image enhancement Optison was used for left [...] Note Jaspreet Kinsey MD - 04/17/2023 [address] [place] [address] Echocardiogram Report Name: NEISHALOIDA Study Date: 410:24 AMBP: 114/64 mmHg Patient Location: 4A : 1970 Height: 160 cm Account: [id number] Age: 53 yrs Weight: 98 kg Gender: Female BSA: 2.0 m2 Ordering Physician: LLOYD MALONEY Referring Physician: LLOYD MALONEY Performed By: HAIM Becerra Reason For Study: Chest pain; NSTEMI Exam Location: [facility]. Interpretation Summary Left ventricle is normal in size and wall thickness. Normal globalsystolic function with regional wall motion abnormalities as ascribed on the anterior/anterolateral aspect. Right ventricle is normal in size and systolic function. No significant cardiac valve findings. No pericardial effusion. Compared to prior study dated 02/09/2023, the extent of the anteriorabnormal wall motion has increased. Procedure Limited - [id number]. Image enhancement Optison was used for left [...] AM EST) UF Heparin 1.41(Crit ical) IU/mL [facility] Comment: Critical Result called by [...] Lab Lloyd Maloney MD HEMATOLOGY ORDERABLE S [facility] [place] [address] * (ABNORMAL) Troponin (04/17/2023 6:43 AM EST) Troponin-T, High Sensitivity 23(H) <=14 ng/L [facility] Comment: This patient's troponin T [...] can be found in the [facility] Laboratory Test Catalog Troponin - [facility] Laboratory Test Catalog Reference: Fourth [place] Definition of Myocardial Infarction. Journal of the [place] College [employer] 2018;72:9166-4228 Blood 04/17/2023 6:43 AM EST 04/17/2023 6:52 AM EST Narrative Resulting Agency Comment Spec In Lab Lloyd Maloney MD CHEMISTRY ORDERABLES Performing Organization Address [facility] [place] [address] * EKG 12 Lead (04/17/2023 3:41 AM EST) Ventricular rate 47 BPM MUSE SYSTEM Atrial Rate 47 BPM MUSE SYSTEM P-R Interval 186 ms MUSE SYSTEM QRS Duration 90 ms MUSE SYSTEM Q-T Interval 578 ms MUSE SYSTEM QTC Calculated (Bezet) 511 ms MUSE SYSTEM Calculated P [place] 24 degrees MUSE SYSTEM Calculated R [place] 23 degrees MUSE SYSTEM Calculated T [place] 27 degrees MUSE SYSTEM INTERPRETATION Sinus bradycardia with Premature atrial complexes Possible Left atrial enlargement Possible Lateral infarct , age undetermined Prolonged QT Abnormal ECG When compared with ECG of 01-APR-2023 12:28, Premature atrial complexes are now Present Vent. rate has decreased BY ??33 BPM Nonspecific T wave abnormality, improved in Anterior leads Confirmed by MD Angelo Danette ([id number]) on 04/20/2023 8:28:40 PM MUSE SYSTEM 04/17/2023 3:41 AM EST 04/20/2023 8:28 PM EST Lloyd Maloney MD ECG ORDERABLES Performing Organization Address City/[facility]/ZIP Co de Phone Number MUSE SYSTEM * Differential, Automated (04/17/2023 3:33 AM EST) Neutrophil % 54.4 % [facility] Neutrophil Absolute 4.02 1.70 - 6.10 x10(3)/[facility] Lymph % 32.0 % [facility] Lymphocytes Abs 2.4 0.9 - 3.2 x10(3)/[facility] Monocyte % 8.7 % [facility] Monocyte Abs 0.6 0.3 - 0.9 x10(3)/[facility] Eos % 3.9 % [facility] Eosinophils Abs 0.3 0.0 - 0.4 x10(3)/[facility] Basophil % 0.7 % [facility] Baso Absolute 0.0 0.0 - 0.1 x10(3)/[facility] Immature Gran % 0.30 % [facility] Comment: Immature granulocytes(IG's)percentage and absolute count will include metamyelocytes, myelocytes, and promyelocytes. Blood smears from CBCs yielding IG's will be scanned manually for concordance. If this scan disagrees with the automated IG or if promyelocytes are noted, a manual differential will be performed. Immature Gran Absolute 0.02 0.00 - 0.04 x10(3)/[facility] Blood 04/17/2023 3:33 AM EST 04/17/2023 3:42 AM EST Narrative Resulting Agency Comment Spec In Lab Lloyd Maloney MD HEMATOLOGY ORDERABLE S [facility] [place] [address] * Hemogram (04/17/2023 3:33 AM EST) White Blood Cell 7.4 4.0 - 9.5 x10(3)/[facility] Red Blood Cell 4.79 4.00 - 5.21 x10(6)/[facility] Hemoglobin 14.8 11.7 - 15.5 g/dL [facility] Hematocrit 44.3 35.7 - 45.8 % [facility] Mean Cell Volume 92.5 82.6 - 94.4 fL [facility] Mean Cell Hemoglobin 30.9 27.1 - 32.0 pg [facility] Mean Cell Hemoglobin Concentration 33.4 31.7 - 35.0 g/dL [facility] Platelet 233 145 - 357 x10(3)/[facility]AT[facility] RDW Standard Deviation 43.4 37.0 - 46.0 fL [facility] RDW coefficient of variation 12.7 11.5 - 14.1 % [facility] Mean Platelet Volume 11.0 7.6 - 12.9 fL [facility] NRBC% auto 0.0 % [facility] NRBC Absolute 0.000 0.000 - 0.000 x10(3)/[facility] Blood 04/17/2023 3:33 AM EST 04/17/2023 3:42 AM EST Narrative Resulting Agency Comment Spec In Lab Lloyd Maloney MD HEMATOLOGY ORDERABLE S Performing Organization Address City/[facility] Co de Phone Number [facility] [place] [place] [address] * Sedimentation rate (04/17/2023 3:33 AM EST) Sedimentation Rate Automated 12 2 - 39 mm/hr [facility] Comment: Effective February 15, 2019 new capillary photometric technology has resulted in a change in reference ranges. It is recommended that each ESR result be reviewed with its own age appropriate reference range. Blood 04/17/2023 3:33 AM EST 04/17/2023 3:42 AM EST Narrative Resulting Agency Comment Spec In Lab Lloyd Maloney MD HEMATOLOGY ORDERABLE S [facility] [place] [address] * CRP, acute inflammation (04/17/2023 3:33 AM EST) C-Reactive Protein <3.0 <=4.9 mg/L [facility] Blood 04/17/2023 3:33 AM EST 04/17/2023 3:42 AM EST Narrative Resulting Agency Comment Spec In Lab Lloyd Maloney MD CHEMISTRY ORDERABLES [facility] [place] [address] * (ABNORMAL) Troponin (04/17/2023 3:33 AM EST) Troponin-T, High Sensitivity 24(H) <=14 ng/L [facility] Comment: This patient's troponin T [...] can be found in the [facility] Laboratory Test Catalog Troponin - [facility] Test Catalog Reference: Fourth [place] Definition of Myocardial Infarction. Journal of the [place] College [employer] Cardiology 2018;72:5142-4201 Blood 04/17/2023 3:33 AM EST 04/17/2023 3:42 AM EST Narrative Resulting Agency Comment Spec In Lab Lloyd Maloney MD CHEMISTRY ORDERABLES Performing Organization Address City/[facility]/ZIP Co de Phone Number [facility] [place] [address] * (ABNORMAL) APTT (04/17/2023 3:33 AM EST) Partial Thromboplastin Time 40(H) 25 - 37 sec [facility] Comment: The PTT is NOT appropriate for heparin monitoring. Use the Anti-Xa level for heparin monitoring (HEP UFH) or LMWH monitoring (HEP LMW). A PTT less than 37 seconds generally indicates adequate hemostasis. Blood 04/17/2023 3:33 AM EST 04/17/2023 3:42 AM EST Narrative Resulting Agency Comment Spec In Lab Lloyd Maloney MD HEMATOLOGY ORDERABLE S Performing Organization Address [facility] Co de Phone Number [facility] [place] [place] [address] * (ABNORMAL) Prothrombin Time (04/17/2023 3:33 AM EST) Prothrombin Time 13.3(H) 9.4 - 12.5 sec [facility] International Normalization Ratio 1.2 [facility] Comment: An INR <2.0 indicates [...] HEMATOLOGY ORDERABLE S Performing Organization Address [facility] Co de Phone Number [facility] [place] [address] * Hepatic Function Panel (04/17/2023 3:33 AM EST) Protein, Total 6.9 6.1 - 8.0 g/dL [facility] Albumin 4.2 3.2 - 5.2 g/dL [facility] Aspartate Aminotransferase Not Perf 0 - 30 [facility] Comment: Unable to quantitate due to sample hemolysis. ??Sample redraw suggested. Called by: Danny Bowles, Read back by: Nyla Cassidy, Date/Time:04/17/23 05:06. Alanine Aminotransferase 17 0 - 30 unit/L [facility] Alkaline Phosphatase 59 35 - 105 unit/L [facility] Bilirubin, Total 0.4 0.2 - 1.3 mg/dL [facility] Bilirubin, Direct 0.1 0.0 - 0.3 mg/dL [facility] Blood 04/17/2023 3:33 AM EST 04/17/2023 3:42 AM EST Narrative Resulting Agency Comment Spec In Lab Lloyd Maloney MD CHEMISTRY ORDERABLES Performing Organization Address City/[facility]/ZIP Co de Phone Number [facility] [place] [address] * (ABNORMAL) pro-Brain Natriuretic Peptide (04/17/2023 3:33 AM EST) NT-proBNP 867(H) <=124 pg/mL [facility] Blood 04/17/2023 3:33 AM EST 04/17/2023 3:42 AM EST Narrative Resulting Agency Comment Spec In Lab Lloyd Maloney MD CHEMISTRY ORDERABLES Performing Organization Address [facility] Co de Phone Number [facility] [place] [address] * (ABNORMAL) TSH (04/17/2023 3:33 AM EST) Thyroid Stimulating Hormone 5.93(H) 0.27 - 4.20 mcIU/mL [facility] Comment: Reference Interval (mcIU/mL): Females: ??First Trimester: 0.23-3.88 ??Second Trimester: 0.22-3.90 ??Third Trimester: 0.44-4.66 Blood 04/17/2023 3:33 AM EST 04/17/2023 3:42 AM EST Narrative Resulting Agency Comment Spec In Lab Lloyd Maloney MD CHEMISTRY ORDERABLES Performing Organization Address City/[facility] Co de Phone Number [facility] [place] [address] * Phosphorus (04/17/2023 3:33 AM EST) Phosphorus 4.1 2.5 - 4.5 mg/dL [facility] Blood 04/17/2023 3:33 AM EST 04/17/2023 3:42 AM EST Narrative Resulting Agency Comment Spec In Lab Lloyd Maloney MD CHEMISTRY ORDERABLES Performing Organization Address [facility] Co de Phone Number [facility] [place] [address] * Magnesium (04/17/2023 3:33 AM EST) Magnesium 0.99 0.69 - 1.07 mmol/L [facility] Blood 04/17/2023 3:33 AM EST 04/17/2023 3:42 AM EST Narrative Resulting Agency Comment Spec In Lab Lloyd Maloney MD CHEMISTRY ORDERABLES Performing Organization Address [facility] de Phone Number [facility] [place] [address] * (ABNORMAL) Basic Metabolic Panel (non-fasting) (04/17/2023 3:33 AM EST) Glucose 89 65 - 199 mg/dL [facility] Comment:Diabetes: >=200 mg/d L plus symptoms Blood Urea Nitrogen 19(H) 8 - 18 mg/dL [facility] Creatinine 1.19 0.70 - 1.20 mg/dL [facility] Sodium 141 135 - 145 mmol/L [facility] Potassium 4.0 3.5 - 5.0 mmol/L [facility] Comment: Please note: ??Patients with WBC >100,000 may have falsely elevated Potassium levels. ??For accurate Potassium quantification in these patients send serum separator tube (gold top) for subsequent determinations. ??Contact the Clinical Chemistry Laboratory if there are any questions. Chloride 106 98 - 107 mmol/L [facility] Carbon Dioxide 22 22 - 31 mmol/L [facility] Anion Gap 13 5 - 15 mmol/L [facility] Calcium 9.4 8.5 - 10.5 mg/dL [facility] Est Glomerular Filtration Rate 54(L) >=60 mL/min/1. 73 m?? [facility] Comment: This patient's estimated GFR [...] In Lab Lloyd Maloney MD CHEMISTRY ORDERABLES [facility] [place] [address] * Film Library- Storage Only CT Chest [...] on Wed04/19/23 at 0900, Until Discontinued, Routine 827 (Given - Provider: Chilo Nickerson RN) 812 [...] Rooney RN) 810 (Given - Provider: Charity Jackson, ERWIN)2100 (Given - Provider: Zoila Rooney RN) 923 [...] 829 (Given - Provider: Chilo Nickerson RN) 0812 (Given - Provider: Charity Jackson RN) 0924 (Given - Provider: China Myers) torsemide [...] at 0304, Until Aura 04/22/23 at 195, for discomfort with PIV insertion, Routine loratadine (Claritin) tablet 10 mg 10 mg, Oral, DAILY PRN, Starting on 04/17/23 at 0304, Until Aura 04/22/23 at 195, allergy, Routine nitroGLYcerin (Nitrostat) disintegrating tablet 0.4 [...] documented as of this encounter Care Teams Senior Etl Developer Relationship Specialty Start Date End Date Polo Pearce PA [address] [place] [address] PCP - General Internal Medicine 06/09/21 documented as of this encounter
--- OUTSIDE RECORDS SUMMARY | 2023-10-22 00:41 | XMS_ITS | Encounter Summary ---
[place] [address] Care Team Providers Care Habitat Conservation Planner Name Role Phone Polo Pearce Primary Care Provider [phone] Reason for Referral * Diagnostic Test (Routine) - Closed Specialty Diagnoses / Procedures Referred By Jayant harris Referred To Contact Radiology Diagnoses Chest pain, unspecified type Procedures NM PET CT Cardiac Sarcoid Maegan Mike APRN [facility] [address] [place] [address] Referral ID Status Reason Start Date Expiration Date V isits Requested Visits Authorized [id number] Closed Specialty Service Requested 04/22/2023 10/20/2024 4 4 Reason for Visit * Auth/Cert (Routine) Specialty Diagnoses / Procedures Referred By Jayant harris Referred To Contact Diagnoses NSTEMI (non-ST elevated myocardial infarction) NSTEMI Procedures ER Lloyd Pantoja MD [facility] [place] [place] [address] [facility] Referral ID Status Reason Start Date Expiration Date Visits Re quested Visits Authorized [id number] 1 1 Encounter Details Date Type Department Care Team (Latest Contact Info) Description 04/16/2023 11:15 PM EST - 04/22/2023 5:15 PM EST Hospital Encounter Heart and Vascular Unit Level 4 Wing B at [facility] [place] [address] Jose Gallegos MD [facility] [place] [address] Ailyn Knight MD [facility] [address] Lloyd Maloney MD [facility] [place] [address] Eufemia Copeland MD [facility] [place] [address] Chest pain, unspecified type; Non-ST elevation myocardial [...] In the past 12 months has e [employer], gas, oil, or water [employer] threatened to shut off services in your [...] in a senior care (including now)? No 04/19/2023 DH IPV Inpatient [...] Loida Madrigal Patient Age: 53 y.o. Language: Surinamese Admit date: 04/16/2023 Discharge date and time: [...] lung disease secondary to obesity transferred from [facility] for further evaluation of exertional chest pressure and breathlessness. Abnormal OSH troponin 500 and repeat HS Trop at [facility] peak 27 with flat trend and elevated [...] discharge Inpatient Provider Contact Information: Cardiovascular Medicine [phone] Discharge Diagnoses (Hospital Problems) and Secondary Diagnoses [...] motion has increased. CTA PE protocol at [facility]- no PE but showed small pericardial effusion and some GG opacities. History of Presentation: Loida Madrigal is a 53 y.o. with hx of paroxysmal A-fib (diagnosed on 10/20/2022), pulmonary emboli on Eliquis, HFpEF (EF of 59%), supraventricular tachycardia (AVNRT since 06/2021) s/p EPS and SVTablation on 1/25/[address] Tovar on [facility], restrictive lung disease secondary to obesity presents from [facility] with complains of chest discomfort that started overnight. The patient has been experiencing ongoing chest pain, prompting admission on 02/11/23 primarily due to concerns about a NSTEMI indicated by elevated troponin levels and EKG changes noted at OSH. However, the observed EKG changes remained largely consistent with previous recordings. Troponin levels at [facility] showed a plateau at 23 > 27. [...] again 10/15, improving with sublingua Nitro. At [facility] Vitals: HR 48, BP 115/42, O2 [...] #Acute on chronic HFpEF Patient presented to [facility] on 04/16 with chest pain responsive to SL NTG. Troponin ~500x2. Transferredto [facility] for further evaluation. Troponin at [facility], 24>23 w/ repeat peak 27->26. She [...] days. Refills: 0 fluticasone propionate 50 mcg/actuation Harper, Suspension Commonly known as: Flonase 1 spray [...] 9:40 AM Jaspreet Kinsey MD Cardiology at [place] Arrive at: [facility] [address] [phone] 09/21/2023 3:00 PM Jaspreet Kinsey MD Cardiology at [place] Arrive at: [facility] [address] [phone] Discharge References/Attachments None Greater than 30 minutes was spent on this discharge including documentation, [id number] time withthe patient, patient education, order entry clerk, coordination with pharmacy and other patient [...] away. Stay on the phone. The emergency band head saw operator will tell you what to do. [...] of 8AM-5PM please call the Cardiology Clinic [phone] to speak with a nurse. All other hours please call the Hospital Tree Sapper [phone] and ask to speak to the manager food safety on-call. Return to work: One week Follow up Appointments: Doctor Where Phone # Date Time PCP JOCY [address] [place] [address] 04/28/2023 7:[address] Kinsey [facility] [address] 05/10/2023 9:40 AM * Attachments The following attachments cannot be sent through Care Everywhere. * Coronary Angiogram: Post-op (Surinamese) documented in this encounter Medications at Time [...] nightly as needed. empagliflozin (Jardiance) 10 mg TabletIndications:Welt Cutter neal heart failure with preserved ejection fraction Take 1 tablet by mouth daily. 90 tablet 1 06/11/2021 rOPINIRole (Requip) 1 mg Tablet Take 2 mg by mouth 2 times daily. 07/16/2020 loratadine (Claritin) 10 mg Tablet Take 10 mg by mouth daily as needed. fluticasone propionate (FLONASE) 50 mcg/actuation Harper, Suspension 1 spray by Each Nare route [...] reviewed with pt, pt wheeled to d/c [facility]. I agree with the [...] note were not included. CARDIOLOGY APP1 - [facility] DAILY PROGRESS NOTE Page [phone] to reach a provider 28/09 Admit Date: [...] 12 CRP <=4.9 mg/L <3.0 <3.0 OSH [facility] troponin ~500. Telemetry: I have personally [...] disease secondary to obesity who presented to [facility] on 04/16 with chest pain responsive to SL NTG. Troponin ~500x2. Transferred to [facility] for further evaluation. Troponin at [facility], 24>23. Reports exertional chest pressure and [...] Score: 24 PT: OT: PCP JOCY Franco [phone] Discussed with MD Kurt Ray PA-C APP1 pager [phone] 04/22/2023 CV HOSPITALIST ADDENDUM Date of Service: [...] 04/21/2023 6:10 PM EST CARDIOLOGY APP1 - [facility] DAILY PROGRESS NOTE Page [phone] to reach a provider 28/09 Admit Date: [...] 12 CRP <=4.9 mg/L <3.0 <3.0 OSH [facility] troponin ~500. Telemetry: I have personally [...] disease secondary to obesity who presented to [facility] on 04/16 with chest pain responsive to SL NTG. Troponin ~500x2. Transferred to [facility] for further evaluation. Troponin at [facility], 24>23. Reports exertional chest pressure and [...] pericardial effusion. She underw ent [facility] on 04/18 which showed non-obstructive ASCVD. [...] occur Diet: Daily Healthy Menu Choices/Cardiac diet ([facility]-Diet) 2 GM NA DVT Prophylaxis: DOAC Code status: Attempt Cardiopulmonary Resuscitation - Inpatient Disposition: Discharge Location: AM-[facility] Basic Mobility Raw Score: 22 PT: OT: PCP JOCY Franco [phone] * Eufemia Copeland MD - 04/20/2023 4:34 PM EST CARDIOLOGY APP1 - [facility] DAILY PROGRESS NOTE Page [phone] to reach a provider 28/09 Admit Date: [...] 12 CRP <=4.9 mg/L <3.0 <3.0 OSH [facility] troponin ~500. Telemetry: I have personally [...] disease secondary to obesity who presented to [facility] on 04/16 with chest pain responsive to SL NTG. Troponin ~500x2. Transferred to [facility] for further evaluation. Troponin at [facility], 24>23. Reports exertional chest pressure and [...] pericardial effusion. She underw ent [facility] on 04/18 which showed non-obstructive ASCVD. [...] occur Diet: Daily Healthy Menu Choices/Cardiac diet ([facility]-Diet) 2 GM NA; 2000 mL FLUID DVT Prophylaxis: DOAC Code status: Attempt Cardiopulmonary Resuscitation - Inpatient Disposition: Discharge Location: [facility] Basic Mobility Raw Score: 24 PT: OT: PCP JOCY Franco [phone] * Carrol La PA - 04/19/2023 12:32 PM EST CARDIOLOGY APP1 - [facility] DAILY PROGRESS NOTE Page [phone] to reach a provider 28/09 Admit Date: [...] 12 CRP <=4.9 mg/L <3.0 <3.0 OSH [facility] troponin ~500. EKG: Sinus bradycardia, 47 bpm, PAC, possible left atrial enlargement, possible lateral infarct, QTc 511. Telemetry: I have personally reviewed and interpreted the telemetry from the last 24 hours. Resultsshow sinus bradycardia with HR 50s, PVCs, heart rate climbs to 70s with activity.. Imaging: [facility] 04/18/23 Conclusions: * Nonobstructive coronary artery [...] motion has increased. CTA PE protocol at [facility]- no PE but showed small pericardial [...] acute aortopathy. 4. No acute pulmonary findings. [facility] 06/09/2021-RA 4, PA 38/15 (24) PCWP 11, CO/CI 3.14/1.6. [facility] 08/30/2019-normal coronary arteries. Assessment & Plan: [...] disease secondary to obesity who presented to [facility] on 04/16 with chest pain responsive to SL NTG. Troponin ~500x2. Transferred to [facility] for further evaluation. Troponin at [facility], 24>23. Reports exertional chest pressure and [...] continues. Diet: Daily Healthy Menu Choices/Cardiac diet ([facility]-Diet) 2 GM NA; 2000 mL FLUID DVT Prophylaxis: DOAC Code status: Attempt Cardiopulmonary Resuscitation - Inpatient Disposition: Discharge Location: [facility] Basic Mobility Raw Score: 24 PT: OT: PCP JOCY Franco [phone] Discussed with MD Carrol Aly PA-C APP1 Pager: [phone] 04/19/2023 * Alex Lew RCP - 04/18/2023 10:10 PM EST [...] note were not included. CARDIOLOGY APP1 - [facility] DAILY PROGRESS NOTE Page [phone] to reach a provider 28/09 Admit Date: [...] breathlessness. Awaiting cardiac catheterization potentially today if Administrative Medical Director availability allows.She remains on ACS therapies. [...] motion has increased. CTA PE protocol at [facility]- no PE but showed small pericardial [...] lung disease secondary to obesity presents from [facility] with complains of exertional chest pressure [...] ongoing chest pain -C 04/18 depending on Administrative Medical Director availability. #Hx of pAfib #Hx of [...] Cardiopulmonary Resuscitation - Inpatient Disposition: Discharge Location: [facility] Basic Mobility Raw Score: 24 PT: OT: PCP JOCY Franco [phone] Discussed with MD Kurt Sheppard PA-C APP1 pager [phone] 04/18/2023 * Kurt Silveira PA - 04/17/2023 7:15 AM EST Images from the original note were not included. CARDIOLOGY APP1 - [facility] DAILY PROGRESS NOTE Page [phone] to reach a provider 28/09 Admit Date: [...] 12 CRP <=4.9 mg/L <3.0 <3.0 OSH [facility] troponin ~500. EKG: Sinus bradycardia, 47 [...] motion has increased. CTA PE protocol at [facility]- no PE but showed small pericardial [...] (24) PCWP 11, CO/CI 3.14/1.6. [facility] 08/30/2019-normal coronary arteries. Assessment & Plan: [...] lung disease secondary to obesity presents from [facility] with complains of exertional chest pressure [...] pain -C 04/18 or 04/19 depending on Administrative Medical Director availability. #Hx of pAfib #Hx of AVNRT sp EPS and Ablation - hold eliquis. Last taken on 04/16/23 am. - Continue IV heparin. # Hx of PE- continue with IV heparin Diet: No diet orders on file DVT Prophylaxis: DOAC Code status: Attempt Cardiopulmonary Resuscitation - Inpatient Disposition: Discharge Location: [facility] Basic Mobility Raw Score: 14 PT: OT: PCP JOCY Franco [phone] Discussed with MD Kurt Sheppard PA-C APP1 pager [phone] 04/17/2023 documented in this encounter H&P Notes [...] SVTablation on 04/01/[address] Tovar on [facility], restrictive lung disease secondary to obesity presents from [facility] with complains of chest discomfort that started overnight. The patient has been experiencing ongoing chest pain, prompting admission on 02/11/23 primarily due to concerns about a NSTEMI indicated by elevated troponin levels and EKG changes noted at OSH. However, the observed EKG changes remained largely consistent with previous recordings. Troponin levels at [facility] showed a plateau at 23 > 27. [...] again 10/15, improving with sublingua Nitro. 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 fluticasone propionate (FLONASE) 50 mcg/actuation Harper, Suspension 1 spray by Each Nare route [...] SVTablation on 04/01/[address] Tovar on [facility], restrictive lung disease secondary to obesity presents from [facility] with complains of chest discomfort that [...] if hypotensive / cardiogenic shock / inferior GA / sildenafil within past 24 hours) - [...] (see comments), grab bar - tub/shower (CPAP [facility]) DME Needed at Discharge: N/A Patient is insured through: Primary Insurance: [employer] [place] Pay[place] [employer] [place] / Plan[place]ANGE / Product Type: *No Product type* / Secondary Insurance: N/A Prescription Coverage: Yes This plan was formulated with input from patient and team. All are in agreement with plan. * Consult Note - Maegan Mike APRN - 04/22/2023 10:38 AM EST Images from the original note were not included. [facility] [place] [phone] INPATIENT CARDIOLOGY CONSULT PROGRESS NOTE Interval events: [...] with MD Maegan De Leon, ROM Pager [phone] 04/22/2023 Associated attestation - Jaspreet Kinsey MD [...] Tatum MSW - 04/20/2023 2:22 PM EST [employer] P[employer] received a consult to support patient with financial concerns. WAX POURER met with patient and introduced self. Patient stated due to hospitalization, she has been out of work and feeling stress around not being able to pay bills. I have a car payment and other bills and it's like I have to choose which one to pay and which one not to pay. WAX POURER validated patient's stress around financial concerns. WAX POURER asked patient if she has applied for [employer] or any other state benefits. Patient stated that she has, but is over the household income criteria to qualify for benefits. Patient shared that she owns her home outright and mainly concerned about making her car payment and transportation home. MSWstated that care management will help arrange for a ride, if needed. WAX POURER provided patient with community resources such as the [employer], the [facility] Community Action phone number, and the [facility] [place] on Aging contact info. WAX POURER available to support patient should anything else [...] Admitted From: Transfer from another hospital Location: [facility] Reason for Hospitalization: chest pain and cough Covid Vaccination Status: 1st, 2nd & booster Last COVID test: Lab Results Component Value Date [id number] Not Detected 06/13/2021 Past medical History: Past [...] In the past 12 months has the [employer], gas, oil, or water [employer] threatened to shut off services in your home?: Yes ([employer] is currently threatening to shut off electricity [...] Home Address confirmed as: [address] [facility] [address] Social & Family Supports: All names listed below confirmed with patient as current and correct Extended Emergency Contact Information Primary Emergency Contact: Boby Madrigal JDCPhosphate Relation: Spouse Secondary Emergency Contact: TALI SHAH [...] Specific Information: N/A Health/Prescription Coverage: Primary Insurance: [employer] [facility] [place] Payor: [employer] [facility] [place] / Plan: [place] EXCHANGE / Product Type: *No Product type* / Secondary Insurance: N/A ; Prescription Coverage: Yes Preferred Pharmacy: [id number] - [place], [place] - [address] [facility] [address] [facility] [address] [facility] Pharmacy - [place], [place] - [address] [facility] [address] [facility] [address] [facility] [address] [place] Status: Patient is a : No Primary Care Provider confirmed: JOCY Franco [phone] Patient/Caregiver Goals of Treatment: home w / family when MR Potential Needs for Transition of Care: other (see comments) ([employer] support; pt's spouse was denied twice for [...] Concerns to be Addressed: financial/insurance, discharge planning; W[employer] P[employer]ER consult placed to discuss available resources Assessment: Patient is admitted to [facility] service for NSTEMI Plan: pending clinical course, but likely home w/o services when MR A member of the Care Management team will continue to monitor progress, follow for continuity of care and assist with transition of care planning. * Consult Note - Otis Rader MD - 04/19/2023 10:00 AM EST Images from the original note were not included. [facility] [place] [phone] INPATIENT CARDIOLOGY CONSULT NOTE Reason for Consult: [...] DAPT and heparin prior to [facility] 04/18, which was negative for any [...] cathlab, came back ~1115am, s/p [facility] with no coronary artery disease seen. [...] for further details. JOCY Marie 04/17/2023 Pager [phone] * Plan of Care - Sudhakar Smith [...] PM EDT Office Visit Cardiology at [address] [phone] Jaspreet Kinsey MD [facility] [place] [address] 10/28/2023 9:00 AM EDT [place] [address] 10/29/2023 10:00 AM EDT Clinical [place] [address] 10/29/2023 10:15 AM EDT Procedure [place] [address] 11/01/2023 5:00 PM EDT Office [place] [address] Selene Browning, PhD [facility] [place] [address] 11/22/2023 4:40 PM EDT Office Visit Cardiology at [address] [address] Porsha Mcdaniels MD [facility] [place] [address] 12/13/2023 10:00 AM EDT Clinical Support [place] [address] [facility] [place] [address] documented as of this encounter Procedures Procedure [...] who have questions please contact the health team primary care physician that requested your imaging first. ? 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 Following IV administration of 26.5 mCi technetium 99m sestamibi, SPECT-CT of the heart was obtained. Following IV injection of 8.8 mCi 63-pmmvzb-7-deoxyglucose (FDG) and a standard uptake of approximately [...] obtained. Following IV injection of 8.8 mCi 31-ejqtby-2-deoxyglucose (FDG) and astandard uptake of approximately 60 [...] patients who have questions please contactthe health team primary care physician that requested your imaging first. Electronically signed by: Humberto Qureshi MD, [facility]([phone]), at 05/06/2023 11:09 AM Maegan Mike APRN IMG PET ORDERABLE S * MRI Cardiac [...] who have questions please contact the health team primary care physician that requested your imaging first. ? Narrative [...] patients who have questions please contactthe health team primary care physician that requested your imaging first. Lloyd Maloney MD IMG MRI ORDERABLES * Hemogram (04/21/2023 3:40 AM EST) White Blood Cell 7.1 4.0 - 9.5 x10(3)/[facility] LABORATORY Red Blood Cell 4.59 4.00 - 5.21 x10(6)/[facility] Hemoglobin 14.4 11.7 - 15.5 g/dL [facility] Hematocrit 43.0 35.7 - 45.8 % [facility] Mean Cell Volume 93.7 82.6 - 94.4 fL [facility] Mean Cell Hemoglobin 31.4 27.1 - 32.0 pg [facility] Mean Cell Hemoglobin Concentration 33.5 31.7 - 35.0 g/dL [facility] Platelet 221 145 - 357 x10(3)/[facility] LABORAT[facility] RDW Standard Deviation 43.5 37.0 - 46.0 fL [facility] RDW coefficient of variation 12.6 11.5 - 14.1 % [facility] Mean Platelet Volume 11.1 7.6 - 12.9 fL [facility] NRBC% auto 0.0 % [facility] NRBC Absolute 0.000 0.000 - 0.000 x10(3)/[facility] LABORAT[facility] Blood 04/21/2023 3:40 AM EST 04/21/2023 3:58 AM EST Narrative Resulting Agency Comment Spec In Lab Ailyn Knight MD HEMATOLOGY ORDERABLE S [facility] [place] [address] * (ABNORMAL) BMP w/fasting Glucose (04/21/2023 3:40 AM EST) Glucose Fasting 107(H) 65 - 99 mg/dL [facility] Comment: ?Fasting* Glucose Interpretive [...] of Diabetes Mellitus, Position Statement from the [place] [employer]. ??Diabetes Care, Volume 33, Supplement 1, Mar 2009 Blood Urea Nitrogen 20(H) 8 - 18 mg/dL [facility] Creatinine 1.14 0.70 - 1.20 mg/dL [facility] Sodium 138 135 - 145 mmol/L [facility] Potassium 3.8 3.5 - 5.0 mmol/L [facility] Comment: Please note: ??Patients with WBC >100,000 may have falsely elevated Potassium levels. ??For accurate Potassium quantification in these patients send serum separator tube (gold top) for subsequent determinations. ??Contact the Clinical Chemistry Laboratory if there are any questions. Chloride 106 98 - 107 mmol/L [facility] Carbon Dioxide 22 22 - 31 mmol/L [facility] Anion Gap 10 5 - 15 mmol/L [facility] Calcium 9.2 8.5 - 10.5 mg/dL [facility] Est Glomerular Filtration Rate 57(L) >=60 mL/min/1. 73 m?? [facility] Comment: This patient's estimated [...] In Lab Ailyn Knight MD CHEMISTRY ORDERABLES [facility] [place] [address] * Magnesium (04/21/2023 3:40 AM EST) Magnesium 0.90 0.69 - 1.07 mmol/L [facility] Blood 04/21/2023 3:40 AM EST 04/21/2023 3:58 AM EST Narrative Resulting Agency Comment Spec In Lab Ailyn Knight MD CHEMISTRY ORDERABLES Performing Organization Address [facility] [place] [address] * (ABNORMAL) Troponin (04/20/2023 4:44 PM EST) Troponin-T, High Sensitivity 26(H) <=14 ng/L [facility] Comment: This patient's troponin [...] can be found in the [facility] Laboratory Test Catalog Troponin - [facility] Laboratory Test Catalog Reference: [address] Definition of Myocardial Infarction. Journal of the [place] College [employer] 2018;72:6503-8793 Blood 04/20/2023 4:44 PM EST 04/20/2023 4:53 PM EST Narrative Resulting Agency Comment Spec In Lab Eufemia Copeland MD CHEMISTRY ORDERABL ES Performing Organization Address [facility] Co de Phone Number [facility] [place] [address] * Duplex for DVT, Arm, Unilat (04/20/2023 4:22 PM EST) VB Text Report Department: Vascular Surgery Lab Patient: [id number] (LOIDA MADRIGAL) CPT: 28920 Referring Physician: LLOYD MALONEY ?? Phone: Indications: [...] EST) Troponin-T, High Sensitivity 27(H) <=14 ng/L [facility] Comment: This patient's troponin [...] can be found in the [facility] Laboratory Test Catalog Troponin - [facility] Laboratory Test Catalog Reference: [address] Definition of Myocardial Infarction. Journal of the [place] [employer] 2018;72:8452-1168 Blood 04/20/2023 1:47 PM EST 04/20/2023 2:18 PM EST Narrative Resulting Agency Comment Spec In Lab Eufemia Copeland MD CHEMISTRY ORDERABL ES Performing Organization Address City/State/[facility] Co de Phone Number [facility] [place] [phone] * (ABNORMAL) Troponin (04/20/2023 10:48 AM EST) Troponin-T, High Sensitivity 24(H) <=14 ng/L [facility] Comment: This patient's troponin [...] can be found in the [facility] Laboratory Test Catalog Troponin - [facility] Laboratory Test Catalog Reference: [address] Definition of Myocardial Infarction. Journal of the [place] [employer] 2018;72:3351-2856 Blood 04/20/2023 10:4 8 AM EST 04/20/2023 11:03 AM EST Narrative Resulting Agency Comment Spec In Lab Eufemia Copeland MD CHEMISTRY ORDERABL ES Performing Organization Address City/[facility]/ZIP Co de Phone Number [facility] [place] [address] * EKG 12 Lead (04/20/2023 10:23 AM EST) Ventricular rate 60 BPM MUSE SYSTEM Atrial Rate 60 BPM MUSE SYSTEM P-R Interval 170 ms MUSE SYSTEM QRS Duration 86 ms MUSE SYSTEM Q-T Interval 470 ms MUSE SYSTEM QTC Calculated (Bezet) 470 ms MUSE SYSTEM Calculated P [place] 39 degrees MUSE SYSTEM Calculated R [place] 63 degrees MUSE SYSTEM Calculated T [place] -16 degrees MUSE SYSTEM INTERPRETATION Normal sinus [...] leads Confirmed by MD Benitez Gregory A. ([id number]) on 04/22/2023 12:10:07 PM MUSE SYSTEM 04/20/2023 10:2 3 AM EST 04/22/2023 12:10 PM EST Lloyd Maloney MD ECG ORDERABLES Performing Organization Address City/[facility]/ZIP Co de Phone Number MUSE SYSTEM * Hemogram (04/20/2023 3:11 AM EST) White Blood Cell 6.6 4.0 - 9.5 x10(3)/[facility] Red Blood Cell 4.59 4.00 - 5.21 x10(6)/[facility] Hemoglobin 14.2 11.7 - 15.5 g/dL [facility] Hematocrit 42.7 35.7 - 45.8 % [facility] Mean Cell Volume 93.0 82.6 - 94.4 fL [facility] Mean Cell Hemoglobin 30.9 27.1 - 32.0 pg [facility] Mean Cell Hemoglobin Concentration 33.3 31.7 - 35.0 g/dL [facility] Platelet 231 145 - 357 x10(3)/[facility] RDW Standard Deviation 43.6 37.0 - 46.0 fL [facility] RDW coefficient of variation 12.6 11.5 - 14.1 % [facility] Mean Platelet Volume 11.0 7.6 - 12.9 fL [facility] NRBC% auto 0.0 % [facility] NRBC Absolute 0.000 0.000 - 0.000 x10(3)/[facility] Blood 04/20/2023 3:11 AM EST 04/20/2023 3:24 AM EST Narrative Resulting Agency Comment Spec In Lab Ailyn Knight MD HEMATOLOGY ORDERABLE S [facility] [place] [address] * (ABNORMAL) BMP w/fasting Glucose (04/20/2023 3:11 AM EST) Glucose Fasting 107(H) 65 - 99 mg/dL [facility] Comment: ?Fasting* Glucose Interpretive [...] of Diabetes Mellitus, Position Statement from the [place] [employer]. ??Diabetes Care, Volume 33, Supplement 1, Mar 2009 Blood Urea Nitrogen 20(H) 8 - 18 mg/dL [facility] Creatinine 1.05 0.70 - 1.20 mg/dL [facility] Sodium 139 135 - 145 mmol/L [facility] Potassium 3.6 3.5 - 5.0 mmol/L [facility] Comment: Please note: ??Patients with WBC >100,000 may have falsely elevated Potassium levels. ??For accurate Potassium quantification in these patients send serum separator tube (gold top) for subsequent determinations. ??Contact the Clinical Chemistry Laboratory if there are any questions. Chloride 106 98 - 107 mmol/L [facility] Carbon Dioxide 21(L) 22 - 31 mmol/L [facility] Anion Gap 12 5 - 15 mmol/L [facility] Calcium 9.3 8.5 - 10.5 mg/dL [facility] Est Glomerular Filtration Rate 63 >=60 mL/min/1. 73 m?? [facility] Comment: This patient's estimated [...] In Lab Ailyn Knight MD CHEMISTRY ORDERABLES [facility] [place] [address] * Magnesium (04/20/2023 3:11 AM EST) Magnesium 0.91 0.69 - 1.07 mmol/L [facility] Blood 04/20/2023 3:11 AM EST 04/20/2023 3:24 AM EST Narrative Resulting Agency Comment Spec In Lab Ailyn Knight MD CHEMISTRY ORDERABLES [facility] [place] [address] * Respiratory Panel PCR (04/19/2023 2:05 PM EST) Respiratory Panel Source PATIENT COORDINATOR FRONT DESK Swab [facility] Respiratory Panel PCR Negative Negative [facility] Comment: Respiratory Panels are performed on the Cellmemore, using multiplexed PCR nucleic acid detection. ??Negative results do not preclude respiratory infection and should not be used as the sole basis for diagnosis, treatment or other management decisions. Adenovirus Not Detected Not Detected [facility] Coronavirus HKU1 Not Detected Not Detected [facility] Coronavirus NL63 Not Detected Not Detected [facility] Coronavirus 229E Not Detected Not Detected [facility] Coronavirus OC43 Not Detected Not Detected [facility] SARS-CoV-2 Not Detected Not Detected [facility] Comment: Testing for SARS-CoV-2 (Severe acute respiratory syndrome coronavirus 2) to aid in the diagnosis of COVID-19 is performed using the BioFire Respiratory Panel 2.1 (InRiver) as authorized by the FDA issued Emergency Use Authorization (EUA). This panel also tests for multiple other viral and bacterial pathogens. This assay is intended for In-vitro Diagnostic (IVD) use with nasopharyngeal swabs in viral transport media. The assay is performed based on the instructions for use and additional guidance provided by the FDA. Testing is performed in laboratories within the [facility], each of which is certified [...] fact sheets at the following FDA website: https://www.fda.gov/medical-devices/pjusxgdgrdk-nriesej-9436-mgqmd-32-emtkbwywl- use-a hskiasbdryhzn-hvjfzje-socfblf/wegrm-njiwwuwgzjp-jtio Human Metapneumovirus Not Detected Not Detected [facility] Human Rhinovirus/Enterov irus Not Detected Not Detected [facility] Influenza A Not Detected Not Detected [facility] Influenza B Not Detected Not Detected [facility] Parainfluenza 1 Not Detected Not Detected [facility] Parainfluenza 2 Not Detected Not Detected [facility] Parainfluenza 3 Not Detected Not Detected [facility] Parainfluenza 4 Not Detected Not Detected [facility] Respiratory Syncytial Virus Not Detected Not Detected [facility] Chlamydophila pneumoniae Not Detected Not Detected [facility] Mycoplasma pneumoniae Not Detected Not Detected [facility] Nasopharyngeal Swab Other / Unknown 04/19 2:05 PM EST 04/19/2023 3:16 PM EST Narrative Resulting Agency Comment Spec In Lab Carrol SANDRA MICROBIOLOGY - GENER AL ORDERABLES [facility] [place] [address] * (ABNORMAL) Urine culture (04/19/2023 10:25 AM EST) Urine Culture 10,000-49,000 cfu/ml mixed mucosal elmer Note: Culture shows multiple bacterial species suggesting mucosal contamination. (A) [facility] Clean Catch Urine 04/19/2023 10:25 AM EST 04/19/2023 12:49 PM EST Narrative Resulting Agency Comment Spec In Lab Carrol SANDRA MICROBIOLOGY - GENER AL ORDERABLES Performing Organization Address City/[facility] Co de Phone Number [facility] [place] [address] * (ABNORMAL) Urinalysis Microscopic Exam (04/19/2023 10:25 AM EST) RBC, Urine 1 0 - 4 /HPF [facility] WBC, Urine 10(H) 0 - 5 /HPF [facility] Squamous Epithelial Cells Raw Data, Urine 4 <=4 /HPF [facility] Hyaline Casts, Urine 1 0 - 2 /LPF [facility] Clean Catch Urine 04/19/2023 10:25 AM EST 04/19/2023 11:08 AM EST Narrative Resulting Agency Comment Spec In Lab Carrol SANDRA URINE ORDERABLES Performing Organization Address [facility] Co de Phone Number [facility] [place] [address] * (ABNORMAL) Urinalysis with reflex Culture (04/19/2023 10:25 AM EST) Glucose, Urine Dipstick >=1000(Criti edy) Negative mg/dL [facility] Comment: Urinalysis result NOT critical without a combination of Glucose greater than or equal to 500 mg/dL AND Ketones greater than or equal to 80 mg/dL Protein, Urine Dipstick Negative Negative mg/dL [facility] Bilirubin, Urine Dipstick Negative Negative mg/dL [facility] Comment: Clinical correlation required for positive Urine Bilirubin results as false positive may occur with some drugs and drug related products. If a false positive is suspected a serum total bilirubin should be considered if clinically indicated. Urobilinogen, Urine Dipstick Normal Normal mg/dL [facility] pH, Urn (dipstick) 5.5 5.0 - 8.0 [facility] Blood, Urine Dipstick Negative Negative mg/dL [facility] Ketone, Urine Dipstick Negative Negative mg/dL [facility] Nitrite, Urine Dipstick Negative Negative [facility] Leukocytes, Urine Dipstick Small(A) Negative [facility] Appearance, Urine Dipstick Clear Clear [facility] Specific Pyrites Urine Automated 1.024 1.005 - 1.030 [facility] Color, Urine Dipstick Yellow Yellow [facility] Reflex to Culture Yes [facility] Clean Catch Urine 04/19/2023 10:25 AM EST 04/19/2023 11:08 AM EST Narrative Resulting Agency Comment Spec In Lab Ailyn Knight MD URINE ORDERABLES Performing Organization Address City/[facility] Co de Phone Number [facility] [place] [address] * Arterial Duplex Arm, Unilat (04/19/2023 9:40 AM EST) VB Text Report Department: Vascular Surgery Lab Patient: [id number] (LOIDA MADRIGAL) CPT: 42621 Referring Physician: AILYN KNIGHT ?? Phone: Indications: [...] White Blood Cell 7.5 4.0 - 9.5 x10(3)/[facility] Red Blood Cell 4.86 4.00 - 5.21 x10(6)/[facility] Hemoglobin 14.8 11.7 - 15.5 g/dL [facility] Hematocrit 45.5 35.7 - 45.8 % [facility] Mean Cell Volume 93.6 82.6 - 94.4 fL [facility] Mean Cell Hemoglobin 30.5 27.1 - 32.0 pg [facility] Mean Cell Hemoglobin Concentration 32.5 31.7 - 35.0 g/dL [facility] Platelet 240 145 - 357 x10(3)/[facility] RDW Standard Deviation 43.8 37.0 - 46.0 fL [facility] RDW coefficient of variation 12.7 11.5 - 14.1 % [facility] Mean Platelet Volume 11.0 7.6 - 12.9 fL [facility] NRBC% auto 0.0 % [facility] NRBC Absolute 0.000 0.000 - 0.000 x10(3)/mcL [facility] Blood 04/19/2023 2:40 AM EST 04/19/2023 2:57 AM EST Narrative Resulting Agency Comment Spec In Lab Ailyn Knight MD HEMATOLOGY ORDERABLE S [facility] [place] [address] * (ABNORMAL) BMP w/fasting Glucose (04/19/2023 2:40 AM EST) Glucose Fasting 106(H) 65 - 99 mg/dL [facility] Comment: ?Fasting* Glucose Interpretive [...] of Diabetes Mellitus, Position Statement from the [place] [employer]. ??Diabetes Care, Volume 33, Supplement 1, Mar 2009 Blood Urea Nitrogen 22(H) 8 - 18 mg/dL [facility] Creatinine 1.11 0.70 - 1.20 mg/dL [facility] Sodium 139 135 - 145 mmol/L [facility] Potassium 4.0 3.5 - 5.0 mmol/L [facility] Comment: Please note: ??Patients with WBC >100,000 may have falsely elevated Potassium levels. ??For accurate Potassium quantification in these patients send serum separator tube (gold top) for subsequent determinations. ??Contact the Clinical Chemistry Laboratory if there are any questions. Chloride 105 98 - 107 mmol/L [facility] Carbon Dioxide 20(L) 22 - 31 mmol/L [facility] Anion Gap 14 5 - 15 mmol/L [facility] Calcium 9.5 8.5 - 10.5 mg/dL [facility] Est Glomerular Filtration Rate 59(L) >=60 mL/min/1. 73 m?? [facility] Comment: This patient's estimated [...] Knight MD CHEMISTRY ORDERABLES Performing Organization Address City/[facility] Co de Phone Number [facility] [place] [address] * Magnesium (04/19/2023 2:40 AM EST) Magnesium 0.97 0.69 - 1.07 mmol/L [facility] Blood 04/19/2023 2:40 AM EST 04/19/2023 2:57 AM EST Narrative Resulting Agency Comment Spec In Lab Ailyn Knight MD CHEMISTRY ORDERABLES Performing Organization Address [facility] Co de Phone Number [facility] [place] [address] * CARDIAC CATHETERIZATION (04/18/2023 11:05 AM EST) Anatomical Region Laterality Modality Other Narrative 04/19/2023 6:57 AM EST ?[facility] ? Cardiac Catheterization/Intervention Report ? Patient Name: Neisha, Loida ? Procedure Date: 04/18/2023 ? A #: [id number] ? Primary Physician: Dustin Carrasco ? Case #: [id number] ? File Name: [id number] ? Catheterization Order Number: [id number] ? [facility] ? Final Report [place], [place] ? Patient Name: ? Loida Neisha ? ID#: ?[id number] ? : ?1970 ? Procedure Date: ? April 18, 2023 ?Case #: ? [id number] ? Room: ? 6 ? Case Physician: [...] procedure was Urgent. 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 ? Electronically Signed by: Dustin Carrasco MJessiD. ? Report Finalized: 04/18/2023 ??12:13 ? Report Last Ammended: 05/03/2023 ??07:49 ? Procedure Note Dustin Carrasco MD - 05/03/2023 [facility] Cardiac Catheterization/Intervention Report Patient Name: Loida Madrigal Procedure Date: 04/18/2023 A #: [id number] Primary Physician: Dustin Carrasco Case #: [id number] File Name: [id number] Catheterization Order Number: [id number] [facility] FinalReport [place], [place] Patient Name: Loida Madrigal ID#:[id number] :1970 Procedure Date: April 18, 2023 Case [...] patient was designated as ASA Class III. [facility] clinical frailty scale is 4: Vulnerable. Diagnostic [...] diagnostic procedure was Urgent. 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 A total sx600bk of Omnipaque were opened, 65cc of Omnipaque were administered qgx31oj of Omnipaque were wasted. Radiation: Fluoro time [...] 8:23 AM EST) UF Heparin 0.39 IU/mL [facility] Comment: Heparin (anti-Xa) levels [...] City/[facility]/ZIP Co de Phone Number [facility] [place] [address] * Differential, Automated (04/18/2023 2:10 AM EST) Neutrophil % 51.4 % [facility] Neutrophil Absolute 3.43 1.70 - 6.10 x10(3)/[facility] Lymph % 33.8 % [facility] Lymphocytes Abs 2.2 0.9 - 3.2 x10(3)/[facility] Monocyte % 9.9 % [facility] Monocyte Abs 0.7 0.3 - 0.9 x10(3)/[facility] Eos % 3.9 % [facility] Eosinophils Abs 0.3 0.0 - 0.4 x10(3)/[facility] Basophil % 0.8 % [facility] Baso Absolute 0.0 0.0 - 0.1 x10(3)/[facility] Immature Gran % 0.20 % [facility] Comment: Immature granulocytes(IG's)percentage and absolute count will include metamyelocytes, myelocytes, and promyelocytes. Blood smears from CBCs yielding IG's will be scanned manually for concordance. If this scan disagrees with the automated IG or if promyelocytes are noted, a manual differential will be performed. Immature Gran Absolute 0.01 0.00 - 0.04 x10(3)/[facility] Blood 04/18/2023 2:10 AM EST 04/18/2023 2:44 AM EST Narrative Resulting Agency Comment Spec In Lab Lloyd Maloney MD HEMATOLOGY ORDERABLE S Performing Organization Address City/[facility]/[place] [address] * Hemogram (04/18/2023 2:10 AM EST) White Blood Cell 6.7 4.0 - 9.5 x10(3)/[facility] Red Blood Cell 4.93 4.00 - 5.21 x10(6)/[facility] Hemoglobin 15.2 11.7 - 15.5 g/dL [facility] Hematocrit 44.9 35.7 - 45.8 % [facility] Mean Cell Volume 91.1 82.6 - 94.4 fL [facility] Mean Cell Hemoglobin 30.8 27.1 - 32.0 pg [facility] Mean Cell Hemoglobin Concentration 33.9 31.7 - 35.0 g/dL [facility] Platelet 233 145 - 357 x10(3)/[facility] RDW Standard Deviation 42.0 37.0 - 46.0 fL [facility] RDW coefficient of variation 12.8 11.5 - 14.1 % [facility] Mean Platelet Volume 11.3 7.6 - 12.9 fL [facility] NRBC% auto 0.0 % [facility] NRBC Absolute 0.000 0.000 - 0.000 x10(3)/[facility] Blood 04/18/2023 2:10 AM EST 04/18/2023 2:44 AM EST Narrative Resulting Agency Comment Spec In Lab Lloyd Maloney MD HEMATOLOGY ORDERABLE S [facility] [place] [address] * Heparin (unfractionated) Level (04/18/2023 2:10 AM EST) UF Heparin 0.50 IU/mL [facility] Comment: Heparin (anti-Xa) levels should be [...] Lab Lloyd Maloney MD HEMATOLOGY ORDERABLE S [facility] [place] [address] * (ABNORMAL) BMP w/fasting Glucose (04/18/2023 2:10 AM EST) Glucose Fasting 98 65 - 99 mg/dL [facility] Comment: ?Fasting* Glucose Interpretive [...] of Diabetes Mellitus, Position Statement from the [place] [employer]. ??Diabetes Care, Volume 33, Supplement 1, Mar 2009 Blood Urea Nitrogen 23(H) 8 - 18 mg/dL [facility] Creatinine 1.18 0.70 - 1.20 mg/dL [facility] Sodium 143 135 - 145 mmol/L [facility] Potassium 3.6 3.5 - 5.0 mmol/L [facility] Comment: Please note: ??Patients with WBC >100,000 may have falsely elevated Potassium levels. ??For accurate Potassium quantification in these patients send serum separator tube (gold top) for subsequent determinations. ??Contact the Clinical Chemistry Laboratory if there are any questions. Chloride 107 98 - 107 mmol/L [facility] Carbon Dioxide 24 22 - 31 mmol/L [facility] Anion Gap 12 5 - 15 mmol/L [facility] Calcium 9.2 8.5 - 10.5 mg/dL [facility] Est Glomerular Filtration Rate 55(L) >=60 mL/min/1. 73 m?? [facility] Comment: This patient's estimated [...] Knight MD CHEMISTRY ORDERABLES Performing Organization Address City/[facility] Co de Phone Number [facility] [place] [address] * Magnesium (04/18/2023 2:10 AM EST) Magnesium 1.02 0.69 - 1.07 mmol/L [facility] Blood 04/18/2023 2:10 AM EST 04/18/2023 2:44 AM EST Narrative Resulting Agency Comment Spec In Lab Ailyn Knight MD CHEMISTRY ORDERABLES Performing Organization Address [facility] [place] [address] * LDL Cholesterol, Direct (04/18/2023 2:10 AM EST) LDL Cholesterol, Direct 105 mg/dL [facility] Comment: Lowest Risk: <100 mg/dL Lower Risk: 100-129 mg/dL Borderline High Risk: 130-159 mg/dL High Risk: 160-189 mg/dL Very High Risk: >el=639 mg/dL Blood 04/18/2023 2:10 AM EST 04/18/2023 2:44 AM EST Narrative Resulting Agency Comment Spec In Lab Lloyd Maloney MD CHEMISTRY ORDERABLES Performing Organization Address City/[facility] Co de Phone Number [facility] [place] [address] * Hemoglobin A1c (04/18/2023 2:10 AM EST) Hemoglobin A1c 5.6 4.3 - 5.6 % [facility] Comment: Reference Range: 4.3 [...] Mellitus, Diabetes Care 2013; 36: Suppl. 1, S67-46 Estimated Average Glucose 115 mg/dL [facility] Blood 04/18/2023 2:10 AM EST 04/18/2023 2:44 AM EST Narrative Resulting Agency Comment Spec In Lab Lloyd Maloney MD CHEMISTRY ORDERABLES [facility] [place] [address] * Lipid Panel (Reflex Direct LDL) (04/18/2023 2:10 AM EST) Cholesterol, Total 173 mg/dL [facility] Comment: Lower Risk: <200 mg/dL Average Risk: 200-239 mg/dL Higher Risk: >uf=540 mg/dL Triglyceride 174 mg/dL [facility] Comment: Average Risk/Lower Risk: <150 mg/dL Borderline High Risk: 150-199 mg/dL High Risk: 200-499 mg/dL Very High Risk: >kh=287 mg/dL HDL Cholesterol 44 mg/dL [facility] Comment: Males: ?? Higher Risk: <40 mg/dL Females: ?? Higher Risk: <50 mg/dL LDL Cholesterol 94 mg/dL [facility] Comment: Lowest Risk: <100 mg/dL Lower Risk: 100-129 mg/dL Borderline High Risk: 130-159 mg/dL High Risk: 160-189 mg/dL Very High Risk: >dd=092 mg/dL Cholesterol/HDL Ratio 3.9 ratio [facility] Lipid Interpretation See Note [facility] Comment: Lipid management should be guided by a patient? s ASCVD risk, goals and preferences. ACC/AHA Guidelines recommend high intensity statin if clinical ASCVD or LDL greater than or equal to 190 mg/dL. http://OM Latam.com/TVQ-SST-Krjxcmhuh Adults aged 40-75 with LDL 70-189 mg/dL should have their 10 year ASCVD risk estimated with the ACC/AHA ASCVD risk senior electrical estimator http://tools.acc.org/YIWZA-Eunn-Nyfeelawk/ Statin should be discussed if risk greater [...] Maloney MD CHEMISTRY ORDERABLES Performing Organization Address City/[facility]/ZIP Co de Phone Number [facility] [place] [address] * POCT Glucose (04/17/2023 7:44 PM EST) Glucose, POC 128 65 - 199 mg/dL [facility] Comment: Supplemental ranges: <140 mg/dL before meals <180 mg/dL all other times of the day Blood 04/17/2023 7:44 PM EST 04/17/2023 7:44 PM EST Ailyn Knight MD POINT OF CARE TEST O RDERABLES Performing Organization Address City/[facility]/ZIP Co de Phone Number [facility] [place] [address] * (ABNORMAL) Heparin (unfractionated) Level (04/17/2023 6:01 PM EST) UF Heparin 1.14(Crit ical) IU/mL [facility] Comment: Critical Result called [...] Lab Lloyd Maloney MD HEMATOLOGY ORDERABLE S [facility] [place] [address] * (ABNORMAL) Heparin (unfractionated) Level (04/17/2023 12:45 PM EST) UF Heparin 1.39(Crit ical) IU/mL [facility] Comment: Critical Result called [...] Lab Ailyn Knight MD HEMATOLOGY ORDERABLE S [facility] [place] [address] * ECHO LMTD W CONTRAST W LMTD SPEC DOPP COLOR DOPP (04/17/2023 11:59 AM EST) EF 58 HEARTLAB SYSTEM Anatomical Region Laterality Modality Cardiac Other 04/17/2023 10:2 4 AM EST Narrative 04/17/2023 12:09 PM EST [address] [place] [address] ? Echocardiogram Report Name: LOIDA MADRIGAL ? Study Date: 04/17/2023 10:24 AMBP: 114/64 mmHg ? Patient Location: 4A : 1970 ? Height: 160 cm ? Account: [id number] Age: 53 yrs ? Weight: 98 kg Gender: Female ?BSA: 2.0 m2 Ordering Physician: LLOYD MALONEY Referring Physician: LLOYD MALONEY Performed By: HAIM Becerra Reason For Study: Chest pain; NSTEMI Exam Location: [facility]. Interpretation Summary Left ventricle is normal in size and wall thickness. Normal global systolic function with regional wall motion abnormalities as ascribed on the anterior/anterolateral aspect. Right ventricle is normal in size and systolic function. No significant cardiac valve findings. No pericardial effusion. Compared to prior study dated 02/09/2023, the extent of the anterior abnormal wall motion has increased. Procedure Limited - 11609. Image enhancement Optison was used for left [...] Note Jaspreet Kinsey MD - 04/17/2023 [address] [place] [address] Echocardiogram Report Name: LOIDA MADRIGAL Study Date: 410:24 AMBP: 114/64 mmHg Patient Location: : 1970 Height: 160 cm Account: [id number] Age: 53 yrs Weight: 98 kg Gender: Female BSA: 2.0 m2 Ordering Physician: LLOYD MALONEY Referring Physician: LLOYD MALONEY Performed By: HAIM Becerra Reason For Study: Chest pain; NSTEMI Exam Location: [facility]. Interpretation Summary Left ventricle is normal in size and wall thickness. Normal globalsystolic function with regional wall motion abnormalities as ascribed on the anterior/anterolateral aspect. Right ventricle is normal in size and systolic function. No significant cardiac valve findings. No pericardial effusion. Compared to prior study dated 02/09/2023, the extent of the anteriorabnormal wall motion has increased. Procedure Limited - 58970. Image enhancement Optison was used for left [...] AM EST) UF Heparin 1.41(Crit ical) IU/mL [facility] Comment: Critical Result called [...] Lab Lloyd Maloney MD HEMATOLOGY ORDERABLE S [facility] [place] [address] * (ABNORMAL) Troponin (04/17/2023 6:43 AM EST) Troponin-T, High Sensitivity 23(H) <=14 ng/L [facility] Comment: This patient's troponin [...] can be found in the [facility] Laboratory Test Catalog Troponin - [facility] Laboratory Test Catalog Reference: Fourth [address] Definition of Myocardial Infarction. Journal of the [place] [employer] 2018;72:6232-2500 Blood 04/17/2023 6:43 AM EST 04/17/2023 6:52 AM EST Narrative Resulting Agency Comment Spec In Lab Lloyd Maloney MD CHEMISTRY ORDERABLES Performing Organization Address City/[facility]/ZIP Co de Phone Number [facility] [place] [address] * EKG 12 Lead (04/17/2023 3:41 AM EST) Ventricular rate 47 BPM MUSE SYSTEM Atrial Rate 47 BPM MUSE SYSTEM P-R Interval 186 ms MUSE SYSTEM QRS Duration 90 ms MUSE SYSTEM Q-T Interval 578 ms MUSE SYSTEM QTC Calculated (Bezet) 511 ms MUSE SYSTEM Calculated P [place] 24 degrees MUSE SYSTEM Calculated R [place] 23 degrees MUSE SYSTEM Calculated T [place] 27 degrees MUSE SYSTEM INTERPRETATION Sinus bradycardia with Premature atrial complexes Possible Left atrial enlargement Possible Lateral infarct , age undetermined Prolonged QT Abnormal ECG When compared with ECG of 01-APR-2023 12:28, Premature atrial complexes are now Present Vent. rate has decreased BY ??33 BPM Nonspecific T wave abnormality, improved in Anterior leads Confirmed by MD Angelo Danette ([id number]) on 04/20/2023 8:28:40 PM MUSE SYSTEM 04/17/2023 3:41 AM EST 04/20/2023 8:28 PM EST Lloyd Maloney MD ECG ORDERABLES Performing Organization Address City/[facility] Co de Phone Number MUSE SYSTEM * Differential, Automated (04/17/2023 3:33 AM EST) Neutrophil % 54.4 % [facility] Neutrophil Absolute 4.02 1.70 - 6.10 x10(3)/[facility] Lymph % 32.0 % [facility] Lymphocytes Abs 2.4 0.9 - 3.2 x10(3)/[facility] Monocyte % 8.7 % [facility] Monocyte Abs 0.6 0.3 - 0.9 x10(3)/[facility] Eos % 3.9 % [facility] Eosinophils Abs 0.3 0.0 - 0.4 x10(3)/[facility] Basophil % 0.7 % [facility] Baso Absolute 0.0 0.0 - 0.1 x10(3)/[facility] Immature Gran % 0.30 % [facility] Comment: Immature granulocytes(IG's)percentage and absolute count will include metamyelocytes, myelocytes, and promyelocytes. Blood smears from CBCs yielding IG's will be scanned manually for concordance. If this scan disagrees with the automated IG or if promyelocytes are noted, a manual differential will be performed. Immature Gran Absolute 0.02 0.00 - 0.04 x10(3)/[facility] Blood 04/17/2023 3:33 AM EST 04/17/2023 3:42 AM EST Narrative Resulting Agency Comment Spec In Lab Lloyd Maloney MD HEMATOLOGY ORDERABLE S Performing Organization Address City/State/[facility] Co de Phone Number [facility] [place] [address] * Hemogram (04/17/2023 3:33 AM EST) White Blood Cell 7.4 4.0 - 9.5 x10(3)/[facility] Red Blood Cell 4.79 4.00 - 5.21 x10(6)/[facility] Hemoglobin 14.8 11.7 - 15.5 g/dL [facility] Hematocrit 44.3 35.7 - 45.8 % [facility] Mean Cell Volume 92.5 82.6 - 94.4 fL [facility] Mean Cell Hemoglobin 30.9 27.1 - 32.0 pg [facility] Mean Cell Hemoglobin Concentration 33.4 31.7 - 35.0 g/dL [facility] Platelet 233 145 - 357 x10(3)/[facility] RDW Standard Deviation 43.4 37.0 - 46.0 fL [facility] RDW coefficient of variation 12.7 11.5 - 14.1 % [facility] Mean Platelet Volume 11.0 7.6 - 12.9 fL [facility] NRBC% auto 0.0 % [facility] NRBC Absolute 0.000 0.000 - 0.000 x10(3)/[facility] Blood 04/17/2023 3:33 AM EST 04/17/2023 3:42 AM EST Narrative Resulting Agency Comment Spec In Lab Lloyd Maloney MD HEMATOLOGY ORDERABLE S Performing Organization Address [facility] Co de Phone Number [facility] [place] [address] * Sedimentation rate (04/17/2023 3:33 AM EST) Sedimentation Rate Automated 12 2 - 39 mm/hr [facility] Comment: Effective February 15, 2019 new capillary photometric technology has resulted in a change in reference ranges. It is recommended that each ESR result be reviewed with its own age appropriate reference range. Blood 04/17/2023 3:33 AM EST 04/17/2023 3:42 AM EST Narrative Resulting Agency Comment Spec In Lab Lloyd Maloney MD HEMATOLOGY ORDERABLE S Performing Organization Address [facility] de Phone Number [facility] [place] [address] * CRP, acute inflammation (04/17/2023 3:33 AM EST) C-Reactive Protein <3.0 <=4.9 mg/L [facility] Blood 04/17/2023 3:33 AM EST 04/17/2023 3:42 AM EST Narrative Resulting Agency Comment Spec In Lab Lloyd Maloney MD CHEMISTRY ORDERABLES Performing Organization Address [facility] Co de Phone Number [facility] [place] [address] * (ABNORMAL) Troponin (04/17/2023 3:33 AM EST) Troponin-T, High Sensitivity 24(H) <=14 ng/L [facility] Comment: This patient's troponin [...] can be found in the [facility] Laboratory Test Catalog Troponin - [facility] Laboratory Test Catalog Reference: [address] Definition of Myocardial Infarction. Journal of the [place] [employer] 2018;72:1061-5451 Blood 04/17/2023 3:33 AM EST 04/17/2023 3:42 AM EST Narrative Resulting Agency Comment Spec In Lab Lloyd Maloney MD CHEMISTRY ORDERABLES Performing Organization Address [facility] [place] [address] * (ABNORMAL) APTT (04/17/2023 3:33 AM EST) Partial Thromboplastin Time 40(H) 25 - 37 sec [facility] Comment: The PTT is [...] City/[facility]/ZIP Co de Phone Number [facility] [place] [address] * (ABNORMAL) Prothrombin Time (04/17/2023 3:33 AM EST) Prothrombin Time 13.3(H) 9.4 - 12.5 sec [facility] International Normalization Ratio 1.2 [facility] Comment: An INR <2.0 indicates [...] ORDERABLE S Performing Organization Address [facility] Co de Phone Number [facility] [place] [address] * Hepatic Function Panel (04/17/2023 3:33 AM EST) Pathologist [facility] Protein, Total 6.9 6.1 - 8.0 g/dL [facility] Albumin 4.2 3.2 - 5.2 g/dL [facility] Aspartate Aminotransferase Not Perf 0 - 30 [facility] Comment: Unable to quantitate due to sample hemolysis. ??Sample redraw suggested. Called by: Danny Bowles, Read back by: Nyla Cassidy, Date/Time:04/17/23 05:06. Alanine Aminotransferase 17 0 - 30 unit/L [facility] Alkaline Phosphatase 59 35 - 105 unit/L [facility] Bilirubin, Total 0.4 0.2 - 1.3 mg/dL [facility] Bilirubin, Direct 0.1 0.0 - 0.3 mg/dL [facility] Blood 04/17/2023 3:33 AM EST 04/17/2023 3:42 AM EST Narrative Resulting Agency Comment Spec In Lab Lloyd Maloney MD CHEMISTRY ORDERABLES Performing Organization Address City/[facility] Co de Phone Number [facility] [place] [address] * (ABNORMAL) pro-Brain Natriuretic Peptide (04/17/2023 3:33 AM EST) NT-proBNP 867(H) <=124 pg/mL [facility] Blood 04/17/2023 3:33 AM EST 04/17/2023 3:42 AM EST Narrative Resulting Agency Comment Spec In Lab Lloyd Maloney MD CHEMISTRY ORDERABLES [facility] [place] [address] * (ABNORMAL) TSH (04/17/2023 3:33 AM EST) Thyroid Stimulating Hormone 5.93(H) 0.27 - 4.20 mcIU/mL [facility] Comment: Reference Interval (mcIU/mL): Females: ??First Trimester: 0.23-3.88 ??Second Trimester: 0.22-3.90 ??Third Trimester: 0.44-4.66 Blood 04/17/2023 3:33 AM EST 04/17/2023 3:42 AM EST Narrative Resulting Agency Comment Spec In Lab Lloyd Maloney MD CHEMISTRY ORDERABLES Performing Organization Address City/[facility]/ZIP Co de Phone Number [facility] [place] [address] * Phosphorus (04/17/2023 3:33 AM EST) Phosphorus 4.1 2.5 - 4.5 mg/dL [facility] Blood 04/17/2023 3:33 AM EST 04/17/2023 3:42 AM EST Narrative Resulting Agency Comment Spec In Lab Lloyd Maloney MD CHEMISTRY ORDERABLES Performing Organization Address City/[facility]/ZIP Co de Phone Number [facility] [place] [address] * Magnesium (04/17/2023 3:33 AM EST) Magnesium 0.99 0.69 - 1.07 mmol/L [facility] Blood 04/17/2023 3:33 AM EST 04/17/2023 3:42 AM EST Narrative Resulting Agency Comment Spec In Lab Lloyd Maloney MD CHEMISTRY ORDERABLES [facility] [place] [address] * (ABNORMAL) Basic Metabolic Panel (non-fasting) (04/17/2023 3:33 AM EST) Glucose 89 65 - 199 mg/dL [facility] Comment:Diabetes: >=200 mg/d L plus symptoms Blood Urea Nitrogen 19(H) 8 - 18 mg/dL [facility] Creatinine 1.19 0.70 - 1.20 mg/dL [facility] Sodium 141 135 - 145 mmol/L [facility] Potassium 4.0 3.5 - 5.0 mmol/L [facility] Comment: Please note: ??Patients with WBC >100,000 may have falsely elevated Potassium levels. ??For accurate Potassium quantification in these patients send serum separator tube (gold top) for subsequent determinations. ??Contact the Clinical Chemistry Laboratory if there are any questions. Chloride 106 98 - 107 mmol/L [facility] Carbon Dioxide 22 22 - 31 mmol/L [facility] Anion Gap 13 5 - 15 mmol/L [facility] Calcium 9.4 8.5 - 10.5 mg/dL [facility] Est Glomerular Filtration Rate 54(L) >=60 mL/min/1. 73 m?? [facility] Comment: This patient's estimated [...] In Lab Lloyd Maloney MD [place] [address] * Film Library- Storage Only CT Chest [...] 08 (Given - Provider: Charity Jackson RN) 923 [...] Nickerson RN) 1736 (Given - Provider: Charity Jackson, ERWIN) 1700 (Due) DULoxetine DR (Cymbalta) capsule 60 mg 60 mg, Oral, DAILY, First dose on 04/17/23 at 0900, Until Discontinued, Routine 0830 (Given - Provider: Chilo Nickerson RN) 08 [...] on Wed04/17/23 at 0900, Until Discontinued, Routine 827 (Given [...] on Wed04/17/23 at 0900, Until Discontinued, Routine 830 (Given - Provider: Chilo Nickerson RN)2010 (Given - Provider: Zoila Rooney RN) 817 (Given - Provider: Charity Jackson RN)2100 (Given - Provider: Zoila Rooney RN) 926 (Given - Provider: China Myers) spironolactone (Aldactone) tablet 25 mg 25 mg, Oral, DAILY, First dose on Wed04/17/23 at 0900, Until Discontinued, DO NOT SPLIT, CRUSH OR OPEN, Routine 08 (Given - Provider: Chilo Nickerson RN) 811 (Given - Provider: Charity Jackson RN) 924 (Given - Provider: China Myers) topiramate (Topamax) tablet 100 mg 100 mg, Oral, NIGHTLY, First dose on 04/17/23 at 2100, Until Discontinued, Routine 2010 (Given - Provider: Zoila Rooney, ERWIN) 2100 (Given - Provider: Zoila Rooney RN) torsemide (Demadex) tablet 20 mg 20 mg, Oral, DAILY, First dose on 04/17/23 at 0900, Until Discontinued, Routine 08 (Given - Provider: Chilo Nickerson RN) 08 (Given - Provider: Charity Jackson RN) 09 (Given - Provider: China Myers) torsemide (Demadex) [...] Starting on 04/17/23 at 0304, Until Aura 2/15/24 at 1956, for discomfort with PIV insertion, [...] 04/17/23 at 0304, Until Aura 04/22/23 at 1955, flush, Flush pertains to all indwelling lines. [...] documented as of this encounter Care Teams Habitat Conservation Planner Relationship Specialty Start Date End Date Polo Pearce PA [address] [place] [address] PCP - General Internal Medicine 06/09/21 documented as of this encounter
--- OUTSIDE RECORDS SUMMARY | 2023-10-22 00:41 | XMS_ITS | Encounter Summary ---
[place] [address] Care Team Providers Care Mill Manager Name Role Phone Polo Pearce Primary Care Provider [phone] Reason for Visit * Diagnostic Test (Routine) - Closed Specialty Diagnoses / Procedures Referred By Jayant harris Referred To Contact Radiology Diagnoses Chest pain, unspecified type Procedures NM PET CT Cardiac Sarcoid Maegan Mike [facility] [place] [address] [place] [address] Referral ID Status Reason Start Date Expiration Date V isits Requested Visits Authorized [id number] Closed Specialty Service Requested 04/22/2023 10/20/2024 4 4 Encounter Details Date Type Department Care Team (Latest Contact Info) Description 04/30/2023 11:02 AM EST - 04/30/2023 11:04 AM [facility] Hospital Encounter [place] [address] Maegan Mike [facility] [place] [address] Discharge Disposition: Home Social History [...] nightly as needed. empagliflozin (Jardiance) 10 mg TabletIndications:Wet Pour Supervisor neal heart failure with preserved ejection fraction Take 1 tablet by mouth daily. 90 tablet 1 06/11/2021 rOPINIRole (Requip) 1 mg Tablet Take 2 mg by mouth 2 times daily. 07/16/2020 loratadine (Claritin) 10 mg Tablet Take 10 mg by mouth daily as needed. fluticasone propionate (FLONASE) 50 mcg/actuation [place], Suspension 1 spray by Each Nare route [...] PM EDT Office Visit Cardiology at [address] [place] [address] Jaspreet Kinsey MD [facility] [place] [address] 10/28/2023 9:00 AM EDT Office [place] [address] 10/29/2023 10:00 AM EDT Clinical Support [place] [address] 10/29/2023 10:15 AM EDT Procedure visit [place] [address] 11/01/2023 5:00 PM EDT Office [place] [phone] Selene Browning, PhD [facility] [place] [address] 11/22/2023 4:40 PM EDT Office Visit Cardiology at [address] [phone] Porsha Mcdaniels MD [facility] [place] [address] 12/13/2023 10:00 AM EDT Clinical [place] [phone] [facility] [place] [address] documented as of this encounter Procedures Procedure [...] who have questions please contact the health behavioral health care coordinator that requested your imaging first. ? 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 Following IV administration of 26.5 mCi technetium 99m sestamibi, SPECT-CT of the heart was obtained. Following IV injection of 8.8 mCi 52-pqweyu-1-deoxyglucose (FDG) and a standard uptake of approximately [...] obtained. Following IV injection of 8.8 mCi 58-ffzxoc-1-deoxyglucose (FDG) and astandard uptake of approximately 60 [...] patients who have questions please contactthe health behavioral health care coordinator that requested your imaging first. Maeganbarby Vogelraymundo VICE PRESIDENT FIXED INCOME IMG PET ORDERABLE S documented in this encounter Visit Diagnoses Not on filedocumented in this encounter Care Teams Mill Manager Relationship Specialty Start Date End Date Polo Pearce PA [address] [facility] [address] [place] [address] PCP - General Internal Medicine 06/09/21 documented as of this encounter
--- OUTSIDE RECORDS SUMMARY | 2023-10-22 00:41 | XMS_ITS | Encounter Summary ---
[place] [address] Care Team Providers Care Highway Administrative Engineer Name Role Phone Polo Pearce Primary Care Provider [phone] Reason for Visit * Diagnostic Test (Routine) - Closed Specialty Diagnoses / Procedures Referred By Jayant harris Referred To Contact Radiology Diagnoses Chest pain, unspecified type Procedures NM PET CT Cardiac Sarcoid Maegan Mike [facility] [place] [address] [place] [address] Referral ID Status Reason Start Date Expiration Date V isits Requested Visits Authorized [id number] Closed Specialty Service Requested 04/22/2023 10/20/2024 4 4 Encounter Details Date Type Department Care Team (Latest Contact Info) Description 04/30/2023 11:05 AM EST Hospital Encounter [place] [address] Maegan Mike [facility] [place] [address] Discharge Disposition: Home Social History [...] nightly as needed. empagliflozin (Jardiance) 10 mg TabletIndications:Cob Sawyer neal heart failure with preserved ejection fraction Take 1 tablet by mouth daily. 90 tablet 1 06/11/2021 rOPINIRole (Requip) 1 mg Tablet Take 2 mg by mouth 2 times daily. 07/16/2020 loratadine (Claritin) 10 mg Tablet Take 10 mg by mouth daily as needed. fluticasone propionate (FLONASE) 50 mcg/actuation [place], Suspension 1 spray by Each Nare route [...] PM EDT Office Visit Cardiology at [address] [place] [address] Jaspreet Kinsey MD [facility] [place] [address] 10/28/2023 9:00 AM EDT Office Visit [place] [address] 10/29/2023 10:00 AM EDT Clinical Support [place] [address] 10/29/2023 10:15 AM EDT Procedure visit [place] [address] 11/01/2023 5:00 PM EDT Office [place] [phone] Selene Browning, PhD [facility] [place] [address] 11/22/2023 4:40 PM EDT Office Visit Cardiology at [address] [phone] Porsha Mcdaniels MD [facility] [place] [address] 12/13/2023 10:00 AM EDT Clinical [place] [phone] [facility] [place] [address] documented as of this encounter Procedures Procedure [...] dose, Starting on Wed04/30/23 at 1228, Until 04/30/23 at 1223, Per Protocol, Radiology Contrast, Routine Given 04/30/2023 12:23 PM EST 9.8 mCi documented in this encounter Care Teams Highway Administrative Engineer Relationship Specialty Start Date End Date Polo Pearce PA [address] [place] [address] PCP - General Internal Medicine 06/09/21 documented as of this encounter
--- OUTSIDE RECORDS SUMMARY | 2023-10-22 00:42 | XMS_ITS | Encounter Summary ---
Author Organization Formerly [facility], Later [facility] [place] [address] Care Team Providers Care Electric Tripper Machine Operator Name Role Phone Polo Pearce Primary Care Provider [phone] Reason for Visit * Reason Onset Date Comments Post Procedure Call 04/08/2023 Encounter Details Date Type Department Care Team (Late st Contact Info) Description 04/08/2023 Notes Only Cardiology at [address] [phone] Mary Motta, RN Post Procedure Call Social History Tobacco Use Types Packs/Day Years Used Date Smoking Tobacco: Never Smokeless Tobacco: Never Alcohol Use Standard Drinks/Week Comments Never 0 (1 standard drink = 0.6 oz pur e alcohol) [facility] Utilities Answer Date Recorded In the past 12 months has e [employer], [employer] of [employer], gas, oil, or water [employer] threatened to shut off services in your [...] with Dr. Tovar in 1-3 months at [facility] Catheter Insertion Area Care - [...] of any new medications initiated at the [facility]. The patient should be aware and informed [...] his/her physician or the Cardiac Electrophysiology Service ([phone]). documented in this encounter Plan of Treatment Upcoming Encounters Date Type Department Care Team (Late st Contact Info) Description 10/26/2023 4:00 PM EDT Office Visit Cardiology at [address] [phone] Jaspreet Kinsey MD [facility] [place] [address] 10/28/2023 9:00 AM EDT Office [place] [address] 10/29/2023 10:00 AM EDT Clinical [place] [address] 10/29/2023 10:15 AM EDT Procedure [place] [address] 11/01/2023 5:00 PM EDT Office Visit [place] [address] Selene Browning, PhD [facility] [place] [address] 11/22/2023 4:40 PM EDT Office Visit Cardiology at [address] [phone] Porsha Mcdaniels MD [facility] [place] [address] 12/13/2023 10:00 AM EDT Clinical Support [place] [phone] [facility] [place] [address] documented as of this encounter Visit Diagnoses Not on filedocumented in this encounter Care Teams Electric Tripper Machine Operator Relationship Specialty Start Date End Date Polo Pearce PA [address] [place] [address] PCP - General Internal Medicine 06/09/21 documented as of this encounter
--- OUTSIDE RECORDS SUMMARY | 2023-10-22 00:42 | XMS_ITS | Encounter Summary ---
Author Organization [facility] Address [facility] [place] [address] Care Team Providers Care Principal Architectural Firm Name Role Phone Polo Pearce Primary Care Provider [phone] Encounter Details Date Type Department Care Team (Late st Contact Info) Description 02/16/2023 11:20 AM EST Office Visit Cardiology at [address] [phone] Jed Tovar MD [facility] [place] [address] PAF (paroxysmal atrial fibrillation); SVT (supraventricular tachycardia) Social History Tobacco Use Types Packs/Day Years Used Date Smoking Tobacco: Never Smokeless Tobacco: Never Alcohol Use Standard Drinks/Week Comments Never 0 (1 standard drink = 0.6 oz pur e alcohol) [facility] Utilities Answer Date Recorded In the past 12 months has e electric, gas, oil, or water [employer] threatened to shut off services in your [...] Follow Up Patient ID Indira Roque [id number] Indira Roque is following up in EP [...] as needed. 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 I have personally reviewed all [...] PM EDT Office Visit Cardiology at [address] [phone] Jaspreet Kinsey MD [facility] [place] [address] 10/28/2023 9:00 AM EDT Office Visit [place] [address] 10/29/2023 10:00 AM EDT Clinical Support [place] [address] 10/29/2023 10:15 AM EDT Procedure visit [place] [address] 11/01/2023 5:00 PM EDT Office [place] [phone] Selene Browning, PhD [facility] [place] [address] 11/22/2023 4:40 PM EDT Office Visit Cardiology at [address] [phone] Porsha Mcdaniels MD [facility] [place] [address] 12/13/2023 10:00 AM EDT Clinical [place] [phone] [facility] [place] [address] documented as of this encounter Procedures Procedure [...] (Bezet) 511 ms MUSE SYSTEM Calculated P Challenge 24 degrees MUSE SYSTEM Calculated R Challenge 35 degrees MUSE SYSTEM Calculated T Challenge 14 degrees MUSE SYSTEM INTERPRETATION Sinus bradycardia [...] dysrhythmias documented in this encounter Care Teams Principal Architectural Firm Relationship Specialty Start Date End Date Polo Pearce PA [address] [place] [address] PCP - General Internal Medicine 06/09/21 documented as of this encounter
--- OUTSIDE RECORDS SUMMARY | 2023-10-22 00:42 | XMS_ITS | Encounter Summary ---
Author Organization [place] [address] Care Team Providers Care Sub Assembly Team Worker Name Role Phone Polo Pearce Primary Care Provider [phone] Encounter Details Date Type Department Care Team (Late st Contact Info) Description 04/16/2023 Telephone Cardiology at [address] [phone] Vaishnavi Pratt MD [facility] [place] [address] Social History Tobacco Use Types Packs/Day Years Used Date Smoking Tobacco: Never Smokeless Tobacco: Never Alcohol Use Standard Drinks/Week Comments Never 0 (1 standard drink = 0.6 oz pur e alcohol) [facility] Utilities Answer Date Recorded In the past 12 months has [employer], gas, oil, or water [employer] threatened to shut off services in your [...] PM EDT Office Visit Cardiology at [address] [place] [address] [phone] Jaspreet Kinsey MD [facility] [place] [address] 10/28/2023 9:00 AM EDT Office [place] [address] 10/29/2023 10:00 AM EDT Clinical [place] [address] 10/29/2023 10:15 AM EDT Procedure [place] [address] 11/01/2023 5:00 PM EDT Office [place] [address] Selene Hurley, PhD [facility] [address] 11/22/2023 4:40 PM EDT Office Visit Cardiology at [place] [phone] Porsha Mcdaniels MD [facility] [place] [address] 12/13/2023 10:00 AM EDT Clinical [place] [phone] Lucero Romero, [place] [facility] [place] [address] documented as of this encounter Visit Diagnoses [...] documented as of this encounter Care Teams Sub Assembly Team Worker Relationship Specialty Start Date End Date Polo Pearce PA [address] [place] [address] PCP - General Internal Medicine 06/09/21 documented as of this encounter
--- OUTSIDE RECORDS SUMMARY | 2023-10-22 00:42 | XMS_ITS | Encounter Summary ---
[place] [address] Care Team Providers Care Supervisor Drying And Winding Name Role Phone Polo Pearce Primary Care Provider [phone] Reason for Visit * Auth/Cert (Routine) Specialty [...] THER/DX INTERVENT ELECTROPHYSIOLOGY PROCEDURE Jed Tovar MD [facility] [place] [address] [facility] Referral ID Status Reason Start Date Expiration Date Visits Re quested Visits Authorized [id number] 1 1 Encounter Details Date Type Department Care Team (Late st Contact Info) Description 04/01/2023 7:39 AM EST Anesthesia Event Electrophys[place] [phone] Merlin Lozoya MD [facility] [place] [address] Anesthesia Record Procedure Summary Procedure [...] Removal Time: 11104/01/23 0750 by Jaspreet Perry, PR MANAGER 04/01/23 1119 by Merlin Lozoya MD PIV 04/01/23; 0754; 18 gauge; dorsal arch vein (top of hand), right; Anatomical Landmarks; tanja; no longer indicated; 04/01/23; 1551 04/01/23 0754 by Jaspreet Perry, PR MANAGER 04/01/23 1551 by Gianna Bland RN LDA Cath/EP Sheath 04/01/23; 0823; 6.5 Namibian (Fr); Left, Anterior; Femoral; Venous 04/01/23 0823 by Mary Herman RN 04/01/23 1056 by Mary Herman RN LDA Cath/EP Sheath 04/01/23; 0825; 6.5 Namibian (Fr); Left, Anterior; Femoral; Venous 04/01/23 0825 by Mary Herman RN 04/01/23 1057 by Mary Herman RN LDA Cath/EP Sheath 04/01/23; 0825; 6.5 Namibian (Fr); Left, Anterior; Femoral; Venous 04/01/23 0825 by Mary Herman RN 04/01/23 1057 by Mary Herman RN LDA Cath/EP Sheath 04/01/23; 0827; 6.5 Namibian (Fr); Right, Anterior; Femoral; Venous 04/01/23 0827 by Mary Herman RN 04/01/23 1057 by Mary Herman RN LDA Cath/EP Sheath 04/01/23; 0833; 5.5 Namibian (Fr); Right, Anterior; Femoral; Venous 04/01/23 0833 by Mary Herman RN 04/01/23 1058 by Mary Herman RN documented in this encounter Social History Tobacco Use Types Packs/Day Years Used Date Smoking Tobacco: Never Smokeless Tobacco: Never Alcohol Use Standard Drinks/Week Comments Never 0 (1 standard drink = 0.6 oz pur e alcohol) [facility] Utilities Answer Date Recorded In the past [...] Procedure Summary Date: 04/01/23 Room / Location: [facility] B-LAB ROOM 4 / [facility] Anesthesia Start: 738 Anesthesia Stop: 1130 Procedure: ELECTROPHYSIOLOGY PROCEDURE Diagnosis: SVT (supraventricular tachycardia) (SVT (supraventricular tachycardia) [I47.10]) Providers: Jed Tovar MD Responsible Provider: Merlin Lozoya MD Anesthesia Type: general ASA Status: 3 All Anesthesia Providers: Anesthesiologist: Merlin Lozoya MD PR MANAGER: Jaspreet Perry CRNA Vitals Value Taken Time BP 104/58 04/01/23 1345 Temp 36.4 ??C (97.5 ??F) 04/01/23 1315 Pulse 66 04/01/23 1346 Resp 14 04/01/23 1346 SpO2 96 % 04/01/23 1346 Pain Level Vitals shown include unfiled device data. Patient Location: PACU/[facility] Level of Consciousness: Awake and Alert [...] risks discussed with patient. Plan discussed with PR MANAGER. Anesthesia Screening documented in this encounter Plan of Treatment Upcoming Encounters Date Type Department Care Team (Late st Contact Info) Description 10/26/2023 4:00 PM EDT Office Visit Cardiology at [address] [phone] Jaspreet Kinsey MD [facility] [address] 10/28/2023 9:00 AM EDT Office Visit [place] [address] 10/29/2023 10:00 AM EDT Clinical Support [place] [address] 10/29/2023 10:15 AM EDT Procedure visit [place] [address] 11/01/2023 5:00 PM EDT Office Visit [place] [phone] Selene Browning, PhD [facility] [address] 11/22/2023 4:40 PM EDT Office Visit Cardiology at [address] [phone] Porsha Mcdaniels MD [facility] [place] [address] 12/13/2023 10:00 AM EDT Clinical Support [place] [phone] [facility] [place] [address] documented as of this encounter Visit Diagnoses [...] documented in this encounter Care Teams Supervisor Drying And Winding Relationship Specialty Start Date End Date Polo Pearce PA [address] [place] [address] PCP - General Internal Medicine 06/09/21 documented as of this encounter
--- OUTSIDE RECORDS SUMMARY | 2023-10-22 00:42 | XMS_ITS | Encounter Summary ---
[place] [address] Care Team Providers Care Fire Sprinkler Apparatus Inspector Name Role Phone Polo Pearce Primary Care Provider [phone] Reason for Visit * Auth/Cert (Routine) Specialty [...] THER/DX INTERVENT ELECTROPHYSIOLOGY PROCEDURE Jed Tovar MD [facility] [place] [place] [address] [facility] Referral ID Status Reason Start Date Expiration Date Visits Re quested Visits Authorized [id number] 1 1 Encounter Details Date Type Department Care Team (Latest Contact Info) Description 04/01/2023 6:20 AM EST - 04/01/2023 4:00 PM EST Hospital En[place] [address] Jed Tovar MD [facility] ELECTROP[place] [address] SVT (supraventricular tachycardia); PAF (paroxysmal atrial fibrillation) Discharge Disposition: Home Social History Tobacco Use Types Packs/Day Years Used Date Smoking Tobacco: Never Smokeless Tobacco: Never Alcohol Use Standard Drinks/Week Comments Never 0 (1 standard drink = 0.6 oz pur e alcohol) [facility] Utilities Answer Date Recorded In the past 12 months has th e [employer], gas, oil, or water company threatened to [...] Indira Roque Patient Age: 53 y.o. Language: South Korean Race: White Ethnicity: Not nor Admit [...] Cardiac Electrophysiology - Weekends and holidays call [phone]; ask for licensing services clerk reproduction technician. Discharge Diagnoses (Hospital Problems) and Secondary Diagnoses [...] 06/13/2021 in the context of hospitalization at [facility] for NSTEMI. A rapidly conducted [...] days. Refills: 0 fluticasone propionate 50 mcg/actuation [place], Suspension Commonly known as: Flonase 1 spray [...] 3:00 PM Jaspreet Kinsey MD Cardiology at [place] Arrive at: [facility] [address] [phone] Discharge References/Attachments None documented in this encounter [...] PRE-PROCEDURE H&P Referring Provider: Jaspreet Kinsey MD [facility] [place] [address] Attending Provider: Jed Tovar MD Planned Procedure: EP study and SVT ablation Background and rationale for the procedure: Indira Roque is a 53 y.o. woman with paroxysmal atrial fibrillation, heart failure with preserved EF, and chronic angina with non-obstructive ASCVD but significant calcifications per coronary CTA. She has documented sustained narrow complex tachycardia on 06/13/2021 in the context of hospitalization at [facility] for NSTEMI. A rapidly conducted [...] in agreement. Dr. Jed Tovar, electrophysiology attending ([id number]) documented in this encounter Procedure Notes * [...] jittery Break coverage by Luiza Peña RN [phone]. PACU D/C criteria met at 1300 1345 Hand off to ERWIN GomezP documented in this encounter Miscellaneous Notes * Brief Op Note - Jed Tovar MD - 04/01/2023 11:07 AM EST Brief Operative Note Patient Name: Indira Roque : [id number] MR#: [id number] Case Date: 04/01/2023 Surgeon: Surgeon(s) and Role: [...] PM EDT Office Visit Cardiology at [address] [phone] Jaspreet Kinsey MD [facility] [place] [address] 10/28/2023 9:00 AM EDT [place] [address] 10/29/2023 10:00 AM EDT Clinical [place] [address] 10/29/2023 10:15 AM EDT [place] [address] 11/01/2023 5:00 PM EDT Office Visit [place] [address] Selene Browning, PhD [facility] [place] [address] 11/22/2023 4:40 PM EDT Office Visit Cardiology at [address] [phone] Porsha Mcdaniels MD [facility] [place] [address] 12/13/2023 10:00 AM EDT Clinical Support [place] [phone] [facility] [place] [address] documented as of this encounter [...] (Bezet) 519 ms MUSE SYSTEM Calculated P [place] 44 degrees MUSE SYSTEM Calculated R [place] 41 degrees MUSE SYSTEM Calculated T [place] 36 degrees MUSE SYSTEM INTERPRETATION Normal sinus rhythm Possible Left atrial enlargement Nonspecific ST and T wave abnormality Prolonged QT Abnormal ECG When compared with ECG of 25-LI-2024 07:31, (unconfirmed) Nonspecific T wave abnormality now [...] not included. ELECTROPHYSIOLOGY STUDY AND SVT ABLATION [employer] Technician: Jed Tovar MD Fellow: Jaspreet Grimm MD Referring: Jaspreet Kinsey MD Patient History: Indira Roque is a 53 y.o. woman with one episode of paroxysmal atrial fibrillation, heart failure with preserved EF, and chronic angina with non-obstructive ASCVD but significant calcifications per coronary CTA. She has documented sustained narrow complex tachycardia on 06/13/2021 in the context of hospitalization at [facility] for NSTEMI. A rapidly conducted [...] Intervals (ms) Interval Name Interval length (milliseconds) IA 260 QRS 97 QT 531 AH 159 HV 47 Refractory Periods Atrial ERP 700/300 AV Makayla Conduction AV Wenckebach 360 ms Retrograde Wenckebach 470 ms Medication Summary (drug, amount, route) Isoproterenol at 2-4 mcg/kg/min Radiology Summary Total Fluoro time (min) 1.4 DAP (cGycm2) 53 Findings: 1. The baseline EKG revealed sinus rhythm with prolonged IA and long AH, but otherwise normal intervals [...] with Dr. Tovar in 1-3 ??months at [facility] 5. 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 Procedures performed: SVT ablation (cpt 68580); induce post IV drug (cpt 99815-80-58) I have read, edited and approve of this report: Jed Tovar MD S Cardiac Electrophysiology 04/03/2023 11:10 AM Jed Tovar MD EP PROCEDURE ORDERAB LES * EKG 12 Lead (04/01/2023 7:31 AM EST) [facility] Ventricular rate 59 BPM MUSE SYSTEM Atrial Rate 59 BPM MUSE SYSTEM P-R Interval 190 ms MUSE SYSTEM QRS Duration 84 ms MUSE SYSTEM Q-T Interval 528 ms MUSE SYSTEM QTC Calculated (Bezet) 522 ms MUSE SYSTEM Calculated P [place] 50 degrees MUSE SYSTEM Calculated R [place] 69 degrees MUSE SYSTEM Calculated T [place] 16 degrees MUSE SYSTEM INTERPRETATION Sinus bradycardia Lateral infarct , age undetermined Prolonged QT Abnormal ECG When compared with ECG of 22-MAR-2023 16:45, (unconfirmed) T wave inversion no longer evident in Anterior leads QT has lengthened I personally reviewed the tracing and edited the fellows interpretation Confirmed by fellow MD Nas, Max ([id number]) on 04/01/2023 3:35:42 PM Confirmed by MD NAILA, KASUHIK ([id number]) on 04/02/2023 8:28:26 AM MUSE SYSTEM 04/01/2023 7:31 AM EST 04/02/2023 8:28 AM EST Jed Tovar MD ECG ORDERABLES MUSE SYSTEM * Differential, Automated (04/01/2023 7:20 AM EST) Neutrophil % 53.2 % [facility] Neutrophil Absolute 3.51 1.70 - 6.10 x10(3)/[facility] LABORAT[facility] Lymph % 32.4 % [facility] Lymphocytes Abs 2.1 0.9 - 3.2 x10(3)/[facility] LABORATORY Monocyte % 8.7 % [facility] Monocyte Abs 0.6 0.3 - 0.9 x10(3)/[facility] LABORATORY Eos % 4.6 % [facility] Eosinophils Abs 0.3 0.0 - 0.4 x10(3)/[facility] LABORATORY Basophil % 0.8 % [facility] Baso Absolute 0.0 0.0 - 0.1 x10(3)/[facility] LABORATORY Immature Gran % 0.30 % [facility] Comment: Immature granulocytes(IG's)percentage and absolute count will include metamyelocytes, myelocytes, and promyelocytes. Blood smears from CBCs yielding IG's will be scanned manually for concordance. If this scan disagrees with the automated IG or if promyelocytes are noted, a manual differential will be performed. Immature Gran Absolute 0.02 0.00 - 0.04 x10(3)/mcL [facility] Blood 04/01/2023 7:20 AM EST 04/01/2023 7:33 AM EST Narrative Resulting Agency Comment Spec In Lab Jed Tovar MD HEMATOLOGY ORDERABLE S Performing Organization Address City/[facility] Co de Phone Number [facility] [place] [address] * (ABNORMAL) Hemogram (04/01/2023 7:20 AM EST) White Blood Cell 6.6 4.0 - 9.5 x10(3)/mc L [facility] Red Blood Cell 4.56 4.00 - 5.21 x10(6)/mc L [facility] Hemoglobin 14.1 11.7 - 15.5 g/dL [facility] Hematocrit 43.1 35.7 - 45.8 % [facility] Mean Cell Volume 94.5(H) 82.6 - 94.4 fL [facility] Mean Cell Hemoglobin 30.9 27.1 - 32.0 pg [facility] Mean Cell Hemoglobin Concentration 32.7 31.7 - 35.0 g/dL [facility] Platelet 229 145 - 357 x10(3)/mc L [facility] RDW Standard Deviation 44.7 37.0 - 46.0 fL [facility] RDW coefficient of variation 12.7 11.5 - 14.1 % [facility] Mean Platelet Volume 11.7 7.6 - 12.9 fL [facility] NRBC% auto 0.0 % [facility] NRBC Absolute 0.000 0.000 - 0.000 x10(3)/mc L [facility] Blood 04/01/2023 7:20 AM EST 04/01/2023 7:33 AM EST Narrative Resulting Agency Comment Spec In Lab Jed Tovar MD HEMATOLOGY ORDERABLE S Performing Organization Address City/[facility]/ZIP Co de Phone Number [facility] [place] [address] * (ABNORMAL) BMP w/fasting Glucose (04/01/2023 7:20 AM EST) Glucose Fasting 99 65 - 99 mg/dL [facility] Comment: ?Fasting* Glucose Interpretive Criteria Normal [...] of Diabetes Mellitus, Position Statement from the [place] [employer]. ??Diabetes Care, Volume 33, Supplement 1, Mar 2009 Blood Urea Nitrogen 22(H) 8 - 18 mg/dL [facility] Creatinine 1.10 0.70 - 1.20 mg/dL [facility] Sodium 139 135 - 145 mmol/L [facility] Potassium 4.2 3.5 - 5.0 mmol/L [facility] Comment: Please note: ??Patients with WBC >100,000 may have falsely elevated Potassium levels. ??For accurate Potassium quantification in these patients send serum separator tube (gold top) for subsequent determinations. ??Contact the Clinical Chemistry Laboratory if there are any questions. Chloride 108(H) 98 - 107 mmol/L [facility] Carbon Dioxide 22 22 - 31 mmol/L [facility] Anion Gap 9 5 - 15 mmol/L [facility] Calcium 9.6 8.5 - 10.5 mg/dL [facility] Est Glomerular Filtration Rate 60 >=60 mL/min/1. 73 m?? [facility] Comment: This patient's estimated GFR was [...] In Lab Jed Tovar MD CHEMISTRY ORDERABLES [facility] [place] [address] documented in this encounter Visit Diagnoses Diagnosis [...] Routine documented in this encounter Care Teams Fire Sprinkler Apparatus Inspector Relationship Specialty Start Date End Date Polo Pearce PA [address] [place] [address] PCP - General Internal Medicine 06/09/21 documented as of this encounter
--- OUTSIDE RECORDS SUMMARY | 2023-10-22 00:42 | XMS_ITS | Encounter Summary ---
[place] [address] Care Team Providers Care Inside Sales Account Representative Name Role Phone Polo Pearce Primary Care Provider [phone] Encounter Details Date Type Department Care Team (Late st Contact Info) Description 04/16/2023 Ancillary Procedure [place] [address] Social History Tobacco Use Types Packs/Day Years Used Date Smoking Tobacco: Never Smokeless Tobacco: Never Alcohol Use Standard Drinks/Week Comments Never 0 (1 standard drink = 0.6 oz pur e alcohol) [facility] Utilities Answer Date Recorded In the [...] in a detention (including now)? No 02/10/2023 IPV Inpatient Questions [...] PM EDT Office Visit Cardiology at [address] [address] [facility] [place] [address] 10/28/2023 9:00 AM EDT Office [place] [address] 10/29/2023 10:00 AM EDT Clinical Support [place] [address] 10/29/2023 10:15 AM EDT Procedure [place] [address] 11/01/2023 5:00 PM EDT Office Visit [place] [address] Selene Browning, PhD [facility] [place] [address] 11/22/2023 4:40 PM EDT Office Visit Cardiology at [address] [phone] [facility] [place] [address] 12/13/2023 10:00 AM EDT Clinical Support [place] [address] [facility] [place] [address] documented as of this encounter Procedures Procedure Name Priority Date/Time Associated Diagnosis Comments FILM LIBRARY STORAGE ONLY CT CHEST Routine 04/16/2023 12:00 AM EST documented in this encounter Results * Film Library- Storage Only CT Chest (04/16/2023 12:00 AM EST) Narrative Dicom, Auditing User - 04/17/2023 3:00 AM EST This exam is auto-finalizing. It's purpose is for storage only. Polo ESPINOZA FILM LIBRARY ORD ERABLES documented in this encounter Visit Diagnoses Not on filedocumented in this encounter Care Teams Inside Sales Account Representative Relationship Specialty Start Date End Date Polo Pearce PA [address] [place] [address] PCP - General Internal Medicine 06/09/21 documented as of this encounter
--- OUTSIDE RECORDS SUMMARY | 2023-10-22 00:42 | XMS_ITS | Encounter Summary ---
Author Organization [place] [address] Care Team Providers Care Sales Supervisor Name Role Phone Polo Pearce Primary Care Provider [phone] Reason for Referral * Consultation (Routine) - Closed Specialty Diagnoses / Procedures Referred By Jayant harris Referred To Contact Cardiology Diagnoses Non-ST elevation myocardial infarction (NSTEMI) Itz Bhardwaj MD [facility] [place] [address] Cardiac Rehab, [address] [place] [address] Referral ID Status Reason Start Date Expiration Date V isits Requested Visits Authorized [id number] Closed Consult, Test & Treat Non PCP 02/18/2023 08/17/2023 36 36 Encounter Details Date Type Department Care Team (Late st Contact Info) Description 02/18/2023 Orders [place] [phone] Jazmin Levine RN Non-ST elevation myocardial infarction [...] PM EDT Office Visit Cardiology at [address] [address] Jaspreet Kinsey MD [facility] [place] [address] 10/28/2023 9:00 AM EDT Office Visit [place] [address] 10/29/2023 10:00 AM EDT Clinical Support [place] [address] 10/29/2023 10:15 AM EDT Procedure visit [place] [address] 11/01/2023 5:00 PM EDT Office Visit Gastroenterology at [place] [phone] Selene Browning, PhD [facility] [place] [address] 11/22/2023 4:40 PM EDT Office Visit Cardiology at [address] Porsha Mcdaniels MD [facility] [place] [address] 12/13/2023 10:00 AM EDT Clinical Support Gastroenterology at [place] [phone] Lucero Romero, [place] [facility] [place] [address] Scheduled Referrals Name Type Priority Associated Diagnoses Orde r Schedule Referral to Cardiac Rehab Outpatient Referral Routine Non-ST elevation myocardial infarction (NSTEMI) Ordered: 02/18/2023 documented as of this encounter Visit Diagnoses Diagnosis Non-ST elevation myocardial infarction (NSTEMI) Acute myocardial infarction, subendocardial infarction, episode of care unspecified documented in this encounter Care Teams Sales Supervisor Relationship Specialty Start Date End Date Polo Pearce PA [address] [place] [address] PCP - General Internal Medicine 06/09/21 documented as of this encounter
--- OUTSIDE RECORDS SUMMARY | 2023-10-22 00:42 | XMS_ITS | Encounter Summary ---
Author Organization [facility] [place] [address] Care Team Providers Care Bladder Trimmer Name Role Phone Polo Pearce Primary Care Provider [phone] Encounter Details Date Type Department Care Team (Late st Contact Info) Description 04/16/2023 Telephone Cardiology at [address] [address] Vaishnavi Pratt MD [facility] [place] [address] Social History Tobacco Use Types Packs/Day Years Used Date Smoking Tobacco: Never Smokeless Tobacco: Never Alcohol Use Standard Drinks/Week Comments Never 0 (1 standard drink = 0.6 oz pur e alcohol) [facility] Utilities Answer Date Recorded In the past 12 months has [employer], gas, oil, or water [employer] threatened to shut off services in [...] Date: 04/16/23 Referring Provider: Jaylon Patient Location: [facility] HPI: 53 y.o. 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 Preceding this, she has documented sustained narrow complex tachycardia on 06/13/2021 in the context of hospitalization at [facility] for NSTEMI. 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 So she was transferred to [facility] for EPS and ablation. She now presents to [facility] with chest discomfortthat started overnight. Upon chart review of Rn notes, patient reports that prior to the procedure she was having chest pain, worse with laying flat. She continued to have feelings of warmth and diaphoresis which improvedmildly immediately after procedure but resumed a few days after. Patient also had an admission to [facility] for chest pain on 02/11/23 and it [...] that was done by the on-call overnight montessori paraprofessional, there is no significant change in biventricular [...] and Asa load. Will accept patient to [facility] for further workup. Although history sounds suspicious for pericarditis, recent ESR/CRP were normal. Suspect at [facility] patient will need to complete ischemic workup. Recommendations: Heparin gtt, Asa load, High intensity statin Transfer to [facility] Above recommendations were based on my discussion with OSH; I have not personally interviewed or examined this patient. Advised to call the transfer center back with any changes in the patient condition. Vaishnavi Pratt MD Prop Cutter documented in this encounter Plan of Treatment Upcoming Encounters Date Type Department Care Team (Late st Contact Info) Description 10/26/2023 4:00 PM EDT Office Visit Cardiology at [address] [address] Jaspreet Kinsey MD [facility] [place] [address] 10/28/2023 9:00 AM EDT Office [place] [address] 10/29/2023 10:00 AM EDT Clinical Support [place] [address] 10/29/2023 10:15 AM EDT Procedure visit [place] [address] 11/01/2023 5:00 PM EDT Office [place] [address] Selene Browning, PhD [facility] [place] [address] 11/22/2023 4:40 PM EDT Office Visit Cardiology at [address] [address] Porsha Mcdaniels MD [facility] [place] [address] 12/13/2023 10:00 AM EDT Clinical [place] [phone] Lucero Romero, [place] [facility] [place] [address] documented as of this encounter Visit Diagnoses Not on filedocumented in this encounter Care Teams Bladder Trimmer Relationship Specialty Start Date End Date Polo Pearce PA [address] [place] [address] PCP - General Internal Medicine 06/09/21 documented as of this encounter
--- OUTSIDE RECORDS SUMMARY | 2023-10-22 00:42 | XMS_ITS | Encounter Summary ---
Author Organization [facility] [place] [address] Care Team Providers Care Senior Field Engineer Name Role Phone Polo Pearce Primary Care Provider [phone] Encounter Details Date Type Department Care Team (Late st Contact Info) Description 04/02/2023 Telephone Cardiology at [address] [phone] Ambreen Cartagena Social History Tobacco Use Types [...] see this patient in follow up at [facility] in 2-3 months. She had SVT ablation 04/01/23. Message sent Mary at [facility] to get pt scheduled there for f/up. Ambreen Cartagena Sr. Clinical Procedure Corporate Fitness Program Coordinator/Torch Solderer documented in this encounter Plan of Treatment Upcoming Encounters Date Type Department Care Team (Late st Contact Info) Description 10/26/2023 4:00 PM EDT Office Visit Cardiology at [address] [address] Jaspreet Kinsey MD [facility] [place] [address] 10/28/2023 9:00 AM EDT Office Visit [place] [address] 10/29/2023 10:00 AM EDT Clinical Support [place] [address] 10/29/2023 10:15 AM EDT Procedure visit [place] [address] 11/01/2023 5:00 PM EDT Office Visit [place] [address] Selene Browning, PhD [facility] [place] [address] 11/22/2023 4:40 PM EDT Office Visit Cardiology at [address] [address] Porsha Mcdaniels MD [facility] [place] [address] 12/13/2023 10:00 AM EDT Clinical Support Gastroenterology at [place] [phone] Lucero Romero, RD [facility] [place] [address] documented as of this encounter Visit Diagnoses Not on filedocumented in this encounter Care Teams Senior Field Engineer Relationship Specialty Start Date End Date Polo Pearce PA [address] [place] [address] PCP - General Internal Medicine 06/09/21 documented as of this encounter
--- OUTSIDE RECORDS SUMMARY | 2023-10-22 00:42 | XMS_ITS | Encounter Summary ---
Author Organization [facility] Address [facility] [place] [address] Care Team Providers Care Gum Cook Name Role Phone Polo Pearce Primary Care Provider [phone] Reason for Visit * Reason Comments Palpitations SVT Encounter Details Date Type Department Care Team (Late st Contact Info) Description 03/22/2023 4:20 PM EST Office Visit Cardiology at [address] [address] Jaspreet Kinsey MD [facility] [place] [address] SVT (supraventricular tachycardia); Pulmonary embolism without acute cor pulmonale, unspecified chronicity, unspecified pulmonary embolism type; Paroxysmal atrial fibrillation; Heart failure with preserved ejection fraction, unspecified HF chronicity Social History Tobacco Use Types Packs/Day Years Used Date Smoking Tobacco: Never Smokeless Tobacco: Never Alcohol Use Standard Drinks/Week Comments Never 0 (1 standard drink = 0.6 oz pur e alcohol) [facility] Utilities Answer Date Recorded In the past 12 months has [employer] electric, gas, oil, or water [employer] threatened to shut off services in your [...] in early February; she was transferred to [facility]. At that interface, amlodipine was discontinued due to mild peripheral edema, and bumex was changed to torsemide ( the latter for unclear reason). Ranexa was also initiated, as was aldactone; the latter to preserve eukalemia. The former was discontinued due to fogginess/dizziness, with quick resolution of symptoms. Since then, she has been doing well. She has been participating in cardiac rehab at [facility] and finds herself making gains [...] 30 DAYS fluticasone propionate (FLONASE) 50 mcg/actuation [place], Suspension 1 spray, Each Nare, DAILY gabapentin [...] upper lobe. Started on eliquis 08/2022 TTE ([facility]): normal bi-v s/f. No significant VHD (HFpEF) heart failure with preserved ejection fraction 05/2021: subacute, presented to [facility] with RUQ pain, weight gain, [...] PM EDT Office Visit Cardiology at [address] [place] [phone] Jaspreet Kinsey MD [facility] [place] [address] 10/28/2023 9:00 AM EDT Office Visit [place] [address] 10/29/2023 10:00 AM EDT Clinical Support [place] [address] 10/29/2023 10:15 AM EDT Procedure visit [place] [address] 11/01/2023 5:00 PM EDT Office Visit Gastroenterology at [place] [phone] Selene Browning, PhD [facility] [place] [address] 11/22/2023 4:40 PM EDT [place] [address] Porsha Mcdaniels MD [facility] [place] [address] 12/13/2023 10:00 AM EDT Clinical [place] [address] Lucero Romero, RD [facility] [place] [address] documented as of this encounter Visit Diagnoses Diagnosis SVT (supraventricular tachycardia) Other specified cardiac dysrhythmias Pulmonary embolism without acute cor pulmonale, unspecified chronicity, unspecified pulmonary embolism type Paroxysmal atrial fibrillation Atrial fibrillation Heart failure with preserved ejection fraction, unspecified HF chronicity documented in this encounter Care Teams Gum Cook Relationship Specialty Start Date End Date Polo Pearce PA [address] [place] [address] PCP - General Internal Medicine 06/09/21 documented as of this encounter
--- OUTSIDE RECORDS SUMMARY | 2023-10-22 00:42 | XMS_ITS | Encounter Summary ---
[place] [address] Care Team Providers Care Inspector Quality Assurance Name Role Phone Polo Pearce Primary Care Provider [phone] Encounter Details Date Type Department Care Team (Late st Contact Info) Description 04/16/2023 External [place] [phone] Social History Tobacco Use Types Packs/Day Years Used Date Smoking Tobacco: Never Smokeless Tobacco: Never Alcohol Use Standard Drinks/Week Comments Never 0 (1 standard drink = 0.6 oz pur e alcohol) [facility] Utilities Answer Date Recorded In the [...] PM EDT Office Visit Cardiology at [address] [address] Jaspreet Kinsey MD [facility] [place] [address] 10/28/2023 9:00 AM EDT Office [place] [address] 10/29/2023 10:00 AM EDT Clinical [place] [address] 10/29/2023 10:15 AM EDT Procedure [place] [address] 11/01/2023 5:00 PM EDT Office Visit [place] [address] Selene Browning, PhD [facility] [place] [address] 11/22/2023 4:40 PM EDT Office Visit Cardiology at [address] [address] Porsha Mcdaniels MD [facility] [place] [address] 12/13/2023 10:00 AM EDT Clinical Support [place] [address] [facility] [place] [address] documented as of this encounter Procedures Procedure Name Priority Date/Time Associated Diagnosis Comments ECG SCAN Routine 04/16/2023 6:11 PM EST documented in this encounter Results * Scan Doc: ECG (04/16/2023 6:11 PM EST) Historical Provider MD FLEMING MGR SCAN EX T ORDR/RSLT documented in this encounter Visit Diagnoses Not on filedocumented in this encounter Care Teams Inspector Quality Assurance Relationship Specialty Start Date End Date Polo Pearce PA [address] [place] [address] PCP - General Internal Medicine 06/09/21 documented as of this encounter
--- OUTSIDE RECORDS SUMMARY | 2023-10-22 00:42 | XMS_ITS | Encounter Summary ---
[place] [address] Care Team Providers Care Kitchenwhere Maker Name Role Phone Polo Pearce Primary Care Provider [phone] Reason for Visit * Auth/Cert (Routine) Specialty [...] THER/DX INTERVENT ELECTROPHYSIOLOGY PROCEDURE Jed Tovar MD [facility] [place] [address] [facility] Referral ID Status Reason Start Date Expiration Date Visits Re quested Visits Authorized [id number] 1 1 Encounter Details Date Type Department Care Team (Late st Contact Info) Description 04/01/2023 7:30 AM EST - 04/01/2023 12:00 PM EST Surgery [place] [address] Jed Tovar MD [facility] [place] [address] ELECTROPHYSIOLOGY PROCEDURE Social History Tobacco Use Types [...] Indira Roque Patient Age: 53 y.o. Language: Tristanian Race: White Ethnicity: Not nor Admit date: [...] Cardiac Electrophysiology - Weekends and holidays call [phone]; ask for fisher [employer] laboratory manager. Discharge Diagnoses (Hospital Problems) and Secondary [...] context of hospitalization at [facility] for NSTEMI. A rapidly conducted narrow [...] days. Refills: 0 fluticasone propionate 50 mcg/actuation [place], Suspension Commonly known as: Flonase 1 spray [...] 3:00 PM Jaspreet Kinsey MD Cardiology at [facility] Arrive at: [facility] [address] [phone] Discharge References/Attachments None documented in this encounter [...] as needed. fluticasone propionate (FLONASE) 50 mcg/actuation [place], Suspension 1 spray by Each Nare route [...] PRE-PROCEDURE H&P Referring Provider: Jaspreet Kinsey MD [facility] [place] [address] Attending Provider: Jed Tovar MD Planned Procedure: [...] context of hospitalization at [facility] for NSTEMI. A rapidly conducted narrow [...] as needed. fluticasone propionate (FLONASE) 50 mcg/actuation [place], Suspension 1 spray by Each Nare route [...] in agreement. Dr. Jed Tovar, electrophysiology attending ([id number]) documented in this encounter Procedure Notes * [...] jittery Break coverage by Luiza Peña RN [phone]. PACU D/C criteria met at 1300 1345 Hand off to ERWIN Gomez SDP documented in this encounter Miscellaneous Notes * Brief Op Note - Jed Tovar MD - 04/01/2023 11:07 AM EST Brief Operative Note Patient Name: Indira Roque : [id number] MR#: [id number] Case Date: 04/01/2023 Surgeon: Surgeon(s) and Role: [...] PM EDT Office Visit Cardiology at [address] [place] [address] Jaspreet Kinsey MD [facility] [place] [address] 10/28/2023 9:00 AM EDT Office [place] [address] 10/29/2023 10:00 AM EDT Clinical [place] [address] 10/29/2023 10:15 AM EDT Procedure [place] [address] 11/01/2023 5:00 PM EDT Office Visit [place] [address] Selene Browning, PhD [facility] [place] [address] 11/22/2023 4:40 PM EDT Office Visit Cardiology at [address] [phone] Porsha Mcdaniels MD [facility] [place] [address] 12/13/2023 10:00 AM EDT Clinical [place] [address] [facility] [place] [address] documented as of this encounter [...] (Bezet) 519 ms MUSE SYSTEM Calculated P Billingsley 44 degrees MUSE SYSTEM Calculated R [place] 41 degrees MUSE SYSTEM Calculated T [place] 36 degrees MUSE SYSTEM INTERPRETATION Normal sinus [...] not included. ELECTROPHYSIOLOGY STUDY AND SVT ABLATION Horticulture Professor: Jed Tovar MD Fellow: Jaspreet Grimm MD Referring: Jaspreet Kinsey MD Patient History: Indira Roque is a 53 y.o. woman with one episode of paroxysmal atrial fibrillation, heart failure with preserved EF, and chronic angina with non-obstructive ASCVD but significant calcifications per coronary CTA. She has documented sustained narrow complex tachycardia on 06/13/2021 in the context of hospitalization at [facility] for NSTEMI. A rapidly conducted narrow [...] Intervals (ms) Interval Name Interval length (milliseconds) CA 260 QRS 97 QT 531 AH 159 HV 47 Refractory Periods Atrial ERP 700/300 AV Makayla Conduction AV Wenckebach 360 ms Retrograde Wenckebach 470 ms Medication Summary (drug, amount, route) Isoproterenol at 2-4 mcg/kg/min Radiology Summary Total Fluoro time (min) 1.4 DAP (cGycm2) 53 Findings: 1. The baseline EKG revealed sinus rhythm with prolonged CA and long AH, but otherwise normal intervals [...] with Dr. Tovar in 1-3 ??months at [facility] 5. 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 Procedures performed: SVT ablation (cpt 56728); induce post IV drug (cpt 71003-75-64) I have read, edited and approve of this report: Jed Tovar MD S Cardiac Electrophysiology 04/03/2023 11:10 AM Jed Tovar MD EP PROCEDURE ORDERAB LES * EKG 12 Lead (04/01/2023 7:31 AM EST) [facility] Signature Ventricular rate 59 BPM MUSE SYSTEM Atrial Rate 59 BPM MUSE SYSTEM P-R Interval 190 ms MUSE SYSTEM QRS Duration 84 ms MUSE SYSTEM Q-T Interval 528 ms MUSE SYSTEM QTC Calculated (Bezet) 522 ms MUSE SYSTEM Calculated P Billingsley 50 degrees MUSE SYSTEM Calculated R [place] 69 degrees MUSE SYSTEM Calculated T [place] 16 degrees MUSE SYSTEM INTERPRETATION Sinus bradycardia Lateral infarct , age undetermined Prolonged QT Abnormal ECG When compared with ECG of 22-MAR-2023 16:45, (unconfirmed) T wave inversion no longer evident in Anterior leads QT has lengthened I personally reviewed the tracing and edited the fellows interpretation Confirmed by fellow MD Nas, Max ([id number]) on 04/01/2023 3:35:42 PM Confirmed by MD NAILA, KAUSHIK ([id number]) on 04/02/2023 8:28:26 AM MUSE SYSTEM 04/01/2023 7:31 AM EST 04/02/2023 8:28 AM EST Jed Tovar MD ECG ORDERABLES MUSE SYSTEM * Differential, Automated (04/01/2023 7:20 AM EST) Neutrophil % 53.2 % [facility] Neutrophil Absolute 3.51 1.70 - 6.10 x10(3)/[facility] Lymph % 32.4 % [facility] Lymphocytes Abs 2.1 0.9 - 3.2 x10(3)/[facility] LABORATORY Monocyte % 8.7 % [facility] Monocyte Abs 0.6 0.3 - 0.9 x10(3)/[facility] LABORATORY Eos % 4.6 % [facility] Eosinophils Abs 0.3 0.0 - 0.4 x10(3)/[facility] LABORATORY Basophil % 0.8 % [facility] Baso Absolute 0.0 0.0 - 0.1 x10(3)/[facility] LABORATORY Immature Gran % 0.30 % [facility] Comment: Immature granulocytes(IG's)percentage and absolute count will include metamyelocytes, myelocytes, and promyelocytes. Blood smears from CBCs yielding IG's will be scanned manually for concordance. If this scan disagrees with the automated IG or if promyelocytes are noted, a manual differential will be performed. Immature Gran Absolute 0.02 0.00 - 0.04 x10(3)/[facility] Blood 04/01/2023 7:20 AM EST 04/01/2023 7:33 AM EST Narrative Resulting Agency Comment Spec In Lab Jed Tovar MD HEMATOLOGY ORDERABLE S [facility] [place] [address] * (ABNORMAL) Hemogram (04/01/2023 7:20 AM EST) White Blood Cell 6.6 4.0 - 9.5 x10(3)/mc L [facility] Red Blood Cell 4.56 4.00 - 5.21 x10(6)/mc L [facility] Hemoglobin 14.1 11.7 - 15.5 g/dL [facility] Hematocrit 43.1 35.7 - 45.8 % [facility] Mean Cell Volume 94.5(H) 82.6 - 94.4 fL [facility] Mean Cell Hemoglobin 30.9 27.1 - 32.0 pg [facility] Mean Cell Hemoglobin Concentration 32.7 31.7 - 35.0 g/dL [facility] Platelet 229 145 - 357 x10(3)/mc L [facility] RDW Standard Deviation 44.7 37.0 - 46.0 fL [facility] RDW coefficient of variation 12.7 11.5 - 14.1 % [facility] Mean Platelet Volume 11.7 7.6 - 12.9 fL [facility] NRBC% auto 0.0 % [facility] NRBC Absolute 0.000 0.000 - 0.000 x10(3)/mc L [facility] Blood 04/01/2023 7:20 AM EST 04/01/2023 7:33 AM EST Narrative Resulting Agency Comment Spec In Lab Jed Tovar MD HEMATOLOGY ORDERABLE S [facility] [place] [address] * (ABNORMAL) BMP w/fasting Glucose (04/01/2023 7:20 AM EST) Glucose Fasting 99 65 - 99 mg/dL [facility] Comment: ?Fasting* Glucose Interpretive Criteria [...] of Diabetes Mellitus, Position Statement from the [place] [employer]. ??Diabetes Care, Volume 33, Supplement 1, Mar 2009 Blood Urea Nitrogen 22(H) 8 - 18 mg/dL [facility] Creatinine 1.10 0.70 - 1.20 mg/dL [facility] Sodium 139 135 - 145 mmol/L [facility] Potassium 4.2 3.5 - 5.0 mmol/L [facility] Comment: Please note: ??Patients with WBC >100,000 may have falsely elevated Potassium levels. ??For accurate Potassium quantification in these patients send serum separator tube (gold top) for subsequent determinations. ??Contact the Clinical Chemistry Laboratory if there are any questions. Chloride 108(H) 98 - 107 mmol/L [facility] Carbon Dioxide 22 22 - 31 mmol/L [facility] Anion Gap 9 5 - 15 mmol/L [facility] Calcium 9.6 8.5 - 10.5 mg/dL [facility] Est Glomerular Filtration Rate 60 >=60 mL/min/1. 73 m?? [facility] Comment: This patient's estimated GFR [...] In Lab Jed Tovar MD CHEMISTRY ORDERABLES [facility] [place] [address] documented in this encounter Visit Diagnoses Diagnosis [...] Routine documented in this encounter Care Teams Kitchenwhere Maker Relationship Specialty Start Date End Date Polo Pearce PA [address] [place] [address] PCP - General Internal Medicine 06/09/21 documented as of this encounter
--- OUTSIDE RECORDS SUMMARY | 2023-10-22 00:42 | XMS_ITS | Encounter Summary ---
Author Organization [facility] Address [facility] [place] [address] Care Team Providers Care Plant Worker Name Role Phone Polo Pearce Primary Care Provider [phone] Encounter Details Date Type Department Care Team (Latest Contact Info) Description 03/22/2023 Travel Social History Tobacco Use Types Packs/Day Years Used Date Smoking Tobacco: Never Smokeless Tobacco: Never Alcohol Use Standard Drinks/Week Comments Never 0 (1 standard drink = 0.6 oz pur e alcohol) [facility] Utilities Answer Date Recorded In [...] PM EDT Office Visit Cardiology at [address] [address] Jaspreet Kinsey MD [facility] [place] [address] 10/28/2023 9:00 AM EDT Office [place] [address] 10/29/2023 10:00 AM EDT Clinical [place] [address] 10/29/2023 10:15 AM EDT Procedure [place] [address] 11/01/2023 5:00 PM EDT Office Visit [place] [phone] Selene Browning, PhD [facility] [place] [address] 11/22/2023 4:40 PM EDT Office Visit Cardiology at [address] [address] Porsha Mcdaniels MD [facility] [place] [address] 12/13/2023 10:00 AM EDT Clinical Support [place] [address] Lucero Romero, ALVA [facility] [place] [address] documented as of this encounter Visit Diagnoses Not on filedocumented in this encounter Care Teams Plant Worker Relationship Specialty Start Date End Date Polo Pearce PA [facility] [address] [place] [address] PCP - General Internal Medicine 06/09/21 documented as of this encounter
--- OUTSIDE RECORDS SUMMARY | 2023-10-22 00:42 | XMS_ITS | Encounter Summary ---
Author Organization [facility] Address [facility] [place] [address] Care Team Providers Care Machine Hostler Name Role Phone Polo Pearce Primary Care Provider [phone] Encounter Details Date Type Department Care Team (Late st Contact Info) Description 02/16/2023 Telephone Cardiology at [address] [place] [address] [facility] [address] Social History Tobacco Use Types Packs/Day Years Used Date Smoking Tobacco: Never Smokeless Tobacco: Never Alcohol Use Standard Drinks/Week Comments Never 0 (1 standard drink = 0.6 oz pur e alcohol) [facility] Utilities Answer Date Recorded In the past 12 months has [employer], gas, oil, or water [employer] threatened to shut off services in [...] her problems. Please call her back @ [phone] documented in this encounter Plan of Treatment Upcoming Encounters Date Type Department Care Team (Late st Contact Info) Description 10/26/2023 4:00 PM EDT Office Visit Cardiology at [address] [place] [address] [facility] [address] 10/28/2023 9:00 AM EDT Office [place] [address] 10/29/2023 10:00 AM EDT Clinical [place] [address] 10/29/2023 10:15 AM EDT Procedure [place] [address] 11/01/2023 5:00 PM EDT Office [place] [phone] Selene Browning, PhD [facility] [place] [address] 11/22/2023 4:40 PM EDT Office Visit Cardiology at [address] [phone] [address] [facility] [address] 12/13/2023 10:00 AM EDT Clinical [place] [phone] [facility] [place] [address] documented as of this encounter Visit Diagnoses Not on filedocumented in this encounter Care Teams Machine Hostler Relationship Specialty Start Date End Date Polo Pearce PA S[address] [place] [address] PCP - General Internal Medicine 06/09/21 documented as of this encounter
--- OUTSIDE RECORDS SUMMARY | 2023-10-22 00:42 | XMS_ITS | Encounter Summary ---
[place] [address] Care Team Providers Care Press Offbearer Name Role Phone Polo Pearce Primary Care Provider [phone] Reason for Visit * Auth/Cert (Routine) Specialty Diagnoses / Procedures Referred By Jayant harris Referred To Contact Diagnoses NSTEMI (non-ST elevated myocardial infarction) NSTEMI Procedures ER Lloyd Pantoja MD [facility] [place] [address] [facility] Referral ID Status Reason Start Date Expiration Date Visits Re quested Visits Authorized [id number] 1 1 Encounter Details Date Type Department Care Team (Latest Contact Info) Description 04/17/2023 9:15 AM EST - 04/17/2023 11:59 PM EST Hospital Encounter Non-Invasive [place] [address] Discharge Disposition: Home Social History Tobacco Use [...] in a residential (including now)? No 02/10/2023 DH IPV Inpatient [...] as needed. fluticasone propionate (FLONASE) 50 mcg/actuation [place], Suspension 1 spray by Each Nare route [...] PM EDT Office Visit Cardiology at [address] [phone] Jaspreet Kinsey MD [facility] [place] [address] 10/28/2023 9:00 AM EDT Office [place] [address] 10/29/2023 10:00 AM EDT Clinical [place] [address] 10/29/2023 10:15 AM EDT Procedure [place] [address] 11/01/2023 5:00 PM EDT Office Visit Gastroenterology at [place] [phone] Selene Browning, PhD [facility] [place] [address] 11/22/2023 4:40 PM EDT Office Visit Cardiology at [address] [phone] Porsha Mcdaniels MD [facility] [place] [address] 12/13/2023 10:00 AM EDT Clinical [place] [phone] [facility] [place] [address] documented as of this encounter Procedures Procedure [...] mLs documented in this encounter Care Teams Press Offbearer Relationship Specialty Start Date End Date Polo Pearce PA Sb [address] [facility] 1 [place] [address] PCP - General Internal Medicine 06/09/21 documented as of this encounter
--- OUTSIDE RECORDS SUMMARY | 2023-10-22 00:42 | XMS_ITS | Encounter Summary ---
Author Organization [facility] [place] [address] Care Team Providers Care Admitted Attorneys Name Role Phone Polo Pearce Primary Care Provider [phone] Encounter Details Date Type Department Care Team (Late st Contact Info) Description 03/10/2023 Telephone Cardiology at [address] [place] [address] Nilda Mayes, RN Social History Tobacco Use Types Packs/Day Years Used Date Smoking Tobacco: Never Smokeless Tobacco: Never Alcohol Use Standard Drinks/Week Comments Never 0 (1 standard drink = 0.6 oz pur e alcohol) [facility] Utilities Answer Date Recorded In the past 12 months has e electric, gas, oil, or water [employer] threatened to shut off services in your [...] PM EDT Office Visit Cardiology at [address] [address] Jaspreet Kinsey MD [facility] [place] [address] 10/28/2023 9:00 AM EDT Office Visit [place] [address] 10/29/2023 10:00 AM EDT Clinical Support [place] [address] 10/29/2023 10:15 AM EDT Procedure visit [place] [address] 11/01/2023 5:00 PM EDT Office [place] [address] Selene Browning, PhD [facility] [place] [address] 11/22/2023 4:40 PM EDT Office Visit Cardiology at [place] [phone] Porsha Mcdaniels MD [facility] [place] [address] 12/13/2023 10:00 AM EDT Clinical [place] [address] Lucero Romero, ALVA [facility] [place] [address] documented as of this encounter Visit Diagnoses Not on filedocumented in this encounter Care Teams Admitted Attorneys Relationship Specialty Start Date End Date Polo Pearce PA [address] [place] [address] PCP - General Internal Medicine 06/09/21 documented as of this encounter
--- OUTSIDE RECORDS SUMMARY | 2023-10-22 00:42 | XMS_ITS | Encounter Summary ---
Author Organization [facility] [place] [address] Care Team Providers Care Autobody Technician Name Role Phone Polo Pearce Primary Care Provider [phone] Reason for Visit * Reason Onset Date Comments Follow-up 04/08/2023 Encounter Details Date Type Department Care Team (Late st Contact Info) Description 04/08/2023 Telephone Cardiology at [address] [phone] Mary Motta, RN Follow-up Social History Tobacco Use Types Packs/Day Years Used Date Smoking Tobacco: Never Smokeless Tobacco: Never Alcohol Use Standard Drinks/Week Comments Never 0 (1 standard drink = 0.6 oz pur e alcohol) [facility] Utilities Answer Date Recorded In the past 12 months has e [employer], gas, oil, or water [employer] threatened to shut off services in your [...] PM EDT Office Visit Cardiology at [address] [place] [address] Jaspreet Kinsey MD [facility] [place] [address] 10/28/2023 9:00 AM EDT Office [place] [address] 10/29/2023 10:00 AM EDT Clinical [place] [address] 10/29/2023 10:15 AM EDT Procedure [place] [address] 11/01/2023 5:00 PM EDT Office Visit [place] [phone] Selene Browning, PhD [facility] [address] 11/22/2023 4:40 PM EDT Office Visit Cardiology at [address] [phone] Porsha Mcdaniels MD [facility] [place] [address] 12/13/2023 10:00 AM EDT Clinical Support [place] [phone] [facility] [place] [address] documented as of this encounter Visit Diagnoses Not on filedocumented in this encounter Care Teams Autobody Technician Relationship Specialty Start Date End Date Polo Pearce PA [facility] [address] [place] [address] PCP - General Internal Medicine 06/09/21 documented as of this encounter
--- OUTSIDE RECORDS SUMMARY | 2023-10-22 00:42 | XMS_ITS | Encounter Summary ---
Author Organization [facility] Address [facility] [place] [address] Care Team Providers Care Open Cut Examiner Name Role Phone Polo Pearce Primary Care Provider [phone] Encounter Details Date Type Department Care Team [...] PM EDT Office Visit Cardiology at [address] [phone] Jaspreet Kinsey MD [facility] [place] [address] 10/28/2023 9:00 AM EDT Office [place] [address] 10/29/2023 10:00 AM EDT Clinical [place] [address] 10/29/2023 10:15 AM EDT Procedure [place] [address] 11/01/2023 5:00 PM EDT Office [place] [phone] Selene Browning, PhD [facility] [place] [address] 11/22/2023 4:40 PM EDT Office Visit Cardiology at [address] [address] Porsha Mcdaniels MD [facility] [place] [address] 12/13/2023 10:00 AM EDT Clinical [place] [address] Lucero Romero, ALVA [facility] [place] [address] documented as of this encounter Visit Diagnoses Not on filedocumented in this encounter Care Teams Open Cut Examiner Relationship Specialty Start Date End Date Polo Pearce PA [facility] [address] [place] [address] PCP - General Internal Medicine 06/09/21 documented as of this encounter
--- OUTSIDE RECORDS SUMMARY | 2023-10-22 00:42 | XMS_ITS | Encounter Summary ---
Author Organization [place] [address] Care Team Providers Care Boats Renter Name Role Phone Polo Pearce Primary Care Provider [phone] Reason for Visit * Reason Onset Date Comments Pre Procedure Call 03/16/2023 Encounter Details Date Type Department Care Team (Late st Contact Info) Description 03/16/2023 Telephone Cardiology at [address] [phone] Mary Motta, RN Pre Procedure Call Social History Tobacco Use Types Packs/Day Years Used Date Smoking Tobacco: Never Smokeless Tobacco: Never Alcohol Use Standard Drinks/Week Comments Never 0 (1 standard drink = 0.6 oz pur e alcohol) [facility] Utilities Answer Date Recorded In the past 12 months has e [employer], gas, oil, or water [employer] threatened to shut off services in [...] ESTSummary: Pre Procedure Call: SVT Ablation EP MOVEMAN COORDINATION CHECKLIST Patient Name: Indira Roque Patient Performing Education Sales Consultant: Jed Tovar Referring Provider: Jaspreet Kinsey Date of Procedure: 04/01/23 Arrival Time/ Case Time: 6:00 am / 7:30 am Check In Location: Pharm Tech Desk 4W Date Patient was Called: 04/01/23 Procedure: SVT Ablation Company: [employer] A[employer] Type: RF Orders: Yes Lab Orders: Yes [...] overnight , understands that they will need concrete pile driver operator on day of discharge Notified pt that Esqueda catheter may be placed on day of procedure depending on type & duration of case. documented in this encounter Plan of Treatment Upcoming Encounters Date Type Department Care Team (Late st Contact Info) Description 10/26/2023 4:00 PM EDT Office Visit Cardiology at [address] [address] Jaspreet Kinsey MD [facility] [place] [address] 10/28/2023 9:00 AM EDT Office [place] [address] 10/29/2023 10:00 AM EDT Clinical [place] [address] 10/29/2023 10:15 AM EDT Procedure [place] [address] 11/01/2023 5:00 PM EDT Office Visit [place] [phone] Selene Browning, PhD [facility] [place] [address] 11/22/2023 4:40 PM EDT Office Visit Cardiology at [address] [address] Porsha Mcdaniels MD [facility] [place] [address] 12/13/2023 10:00 AM EDT Clinical Support [place] [phone] Lucero Romero, [place] [facility] [address] documented as of this encounter Visit Diagnoses Not on filedocumented in this encounter Care Teams Boats Renter Relationship Specialty Start Date End Date Polo Pearce PA [address] [place] [address] PCP - General Internal Medicine 06/09/21 documented as of this encounter
--- OUTSIDE RECORDS SUMMARY | 2023-10-22 00:43 | XMS_ITS | Encounter Summary ---
Author Organization [facility] [place] [address] Care Team Providers Care Manager Hotel Name Role Phone Polo Pearce Primary Care Provider [phone] Reason for Referral * Consultation (Routine) - Closed Specialty Diagnoses / Procedures Referred By Jayant harris Referred To Contact Vascular Surgery Diagnoses Pulmonary embolism, unspecified chronicity, unspecified pulmonary embolism type, unspecified whether acute cor pulmonale present ROUTINE, SALVATORE, BLE DVT Vascular medicine PE clinic: seemingly unprovoked small PE. review consideration of hypercoagulability testing Jaspreet Kinsey MD [facility] [place] [address] Elvin Maya MD [facility] [place] [address] Referral ID Status Reason Start Date Expiration Date V isits Requested Visits Authorized [id number] Closed Consult, Test & Treat 07/30/2022 07/30/2023 1 1 Reason for Visit * Reason Comments Coronary Artery Disease Congestive Heart Failure HFpEF Chest Pain Encounter Details Date Type Department Care Team (Late st Contact Info) Description 07/30/2022 9:20 AM EDT Office Visit Cardiology at [address] [address] Jaspreet Kinsey MD [facility] [place] [address] Heart failure with preserved ejection fraction, unspecified [...] Intercurrently, patient presented earlier this week to [facility] with an abrupt increase in fatigue/dyspnea x [...] a significant increase in UOP; however, at [facility] notes they gave me something that they [...] DAYS ??? fluticasone propionate (FLONASE) 50 mcg/actuation [place], Suspension 1 spray, Each Nare, DAILY ??? [...] preserved ejection fraction 05/2021: subacute, presented to [facility] with RUQ pain, weight gain, [...] discharge summary and medication administration record from [facility] to see what was given to her [...] discharge summary and medication administration record from [facility] to see what was given to her to effect UOP positively - Diuresis: bumex 1 qd - Cardioprotection: - SGLT2i: jardiance - MRA: aldactone 25 documented in this encounter Plan of Treatment Upcoming Encounters Date Type Department Care Team (Late st Contact Info) Description 10/26/2023 4:00 PM EDT Office Visit Cardiology at [address] [place] [address] Jaspreet Kinsey MD [facility] [place] [address] 10/28/2023 9:00 AM EDT Office [place] [address] 10/29/2023 10:00 AM EDT Clinical [place] [address] 10/29/2023 10:15 AM EDT Procedure [place] [address] 11/01/2023 5:00 PM EDT Office Visit Gastroenterology at [place] [phone] Selene Browning, PhD [facility] [place] [address] 11/22/2023 4:40 PM EDT Office Visit Cardiology at [address] Porsha Mcdaniels MD [facility] [place] [address] 12/13/2023 10:00 AM EDT Clinical Support Gastroenterology at [place] [phone] Lucero Romero, RD [facility] [place] [address] Scheduled Referrals Name Type Priority Associated Diagnoses [...] documented in this encounter Care Teams Manager Hotel Relationship Specialty Start Date End Date Polo Pearce PA [address] [place] [address] PCP - General Internal Medicine 06/09/21 documented as of this encounter
--- OUTSIDE RECORDS SUMMARY | 2023-10-22 00:43 | XMS_ITS | Encounter Summary ---
Author Organization [facility] Address [facility] [place] [address] Care Team Providers Care Compliance Coordinator Name Role Phone Polo Pearce Primary Care Provider [phone] Encounter Details Date Type Department Care Team (Late st Contact Info) Description 08/31/2022 External [place] [address] Social History Tobacco Use Types Packs/Day Years [...] PM EDT Office Visit Cardiology at [address] [address] Jaspreet Kinsey MD [facility] [place] [address] 10/28/2023 9:00 AM EDT Office [place] [address] 10/29/2023 10:00 AM EDT Clinical [place] [address] 10/29/2023 10:15 AM EDT Procedure [place] [address] 11/01/2023 5:00 PM EDT Office Visit Gastroenterology at [place] [phone] Selene Browning, PhD [facility] [place] [address] 11/22/2023 4:40 PM EDT Office Visit Cardiology at [place] [phone] Porsha Mcdaniels MD [facility] [place] [address] 12/13/2023 10:00 AM EDT Clinical Support Gastroenterology at [place] [phone] [facility] [place] [address] documented as of this encounter Procedures Procedure Name Priority Date/Time Associated Diagnosis Comments ECG SCAN Routine 08/31/2022 2:00 PM EDT documented in this encounter Results * Scan Doc: ECG (08/31/2022 2:00 PM EDT) Historical Provider MD FLEMING MGR SCAN EX T ORDR/RSLT documented in this encounter Visit Diagnoses Not on filedocumented in this encounter Care Teams Compliance Coordinator Relationship Specialty Start Date End Date Polo Pearce PA [address] [place] [address] PCP - General Internal Medicine 06/09/21 documented as of this encounter
--- OUTSIDE RECORDS SUMMARY | 2023-10-22 00:43 | XMS_ITS | Encounter Summary ---
Author Organization [facility] Address [facility] [place] [address] Care Team Providers Care Environmental Project Manager Name Role Phone Polo Pearce Primary Care Provider [phone] Encounter Details Date Type Department Care Team (Late st Contact Info) Description 07/28/2022 Telephone Cardiology at [address] [place] [address] Jaspreet Kinsey MD [facility] [address] Social History Tobacco Use Types Packs/Day Years [...] and would like a call back @ [phone] * Telephone Encounter - Nilda Mayes, RN - 07/28/2022 10:57 AM EDT Indira says she is being discharged to home from [facility] today. Home diuretic therapy isn't working well. When I'm in the hospital, it really comes down again. She asks if the fluid pill needs to be changed. Plan: to request discharge records from [facility] when available. * Telephone Encounter - Brenda Callahan - 07/28/2022 10:44 AM EDT PT called she was advised to call this office. She has a few questions. Prior notes in chart she has been at [facility]. She would like a call back from a nurse please. [phone] documented in this encounter Plan of Treatment Upcoming Encounters Date Type Department Care Team (Late st Contact Info) Description 10/26/2023 4:00 PM EDT Office Visit Cardiology at [address] [address] Jaspreet Kinsey MD [facility] [place] [address] 10/28/2023 9:00 AM EDT Office [place] [address] 10/29/2023 10:00 AM EDT Clinical [place] [address] 10/29/2023 10:15 AM EDT Procedure [place] [address] 11/01/2023 5:00 PM EDT Office Visit [place] [phone] Selene Browning, PhD [facility] [place] [address] 11/22/2023 4:40 PM EDT Office Visit Cardiology at [address] [phone] Porsha Mcdaniels MD [facility] [place] [address] 12/13/2023 10:00 AM EDT Clinical Support [place] [phone] Lucero Romero, [facility] [place] [address] documented as of this encounter Visit Diagnoses Not on filedocumented in this encounter Care Teams Environmental Project Manager Relationship Specialty Start Date End Date Polo Pearce PA [address] [place] [address] PCP - General Internal Medicine 06/09/21 documented as of this encounter
--- OUTSIDE RECORDS SUMMARY | 2023-10-22 00:43 | XMS_ITS | Encounter Summary ---
Author Organization [facility] Address [facility] [place] [address] Care Team Providers Care Inspector Exhaust Emissions Name Role Phone Polo Pearce Primary Care Provider [phone] Encounter Details Date Type Department Care Team (Late st Contact Info) Description 02/08/2023 Telephone Cardiology at [address] [address] Ericka Brenner PA [facility] [place] [address] Social History Tobacco Use Types Packs/Day Years [...] PM Referring Provider: Dr. Iyer Patient Location: [facility] Brief History 52 year old female [...] acute aortopathy. 4. No acute pulmonary findings. [facility] 08/2019: Conclusions: * Normal coronary arteries OSH Interventions: Sl nitro Full dose ASA Assessment & Plan: 52 year old female with history of prior NSTEMI with normal coronaries 2019, recent coronary CTA with ca score 198), HTN, HLD, HFpEF, Afib (on Eliquis) who is presenting with chest pain. Has had similar presentation in 2019 with a [facility] demonstrating normal coronaries at that [...] as type 1 NSTEMI and transfer to [facility] for further evaluation. - agree with nitro gtt if not chest pain free - if persistent chest pain with nitro gtt would load Plavix 600mg - start IV heparin gtt 12 hours post last dose of Eliquis - BB as able, HI statin - transfer to [facility] 02/08/23 Above recommendations were based on my discussion with Dr. Iyer; I have not personally interviewed or examined this patient. I encouraged them to contact us if there is any change in symptoms, decision- making, or further need for guidance in management. JOCY Valdivia-Chauncey Access Pager [phone] 02/08/2023 documented in this encounter Plan of Treatment Upcoming Encounters Date Type Department Care Team (Late st Contact Info) Description 10/26/2023 4:00 PM EDT Office Visit Cardiology at [address] [place] [address] Jaspreet Kinsey MD [facility] [address] 10/28/2023 9:00 AM EDT Office [place] [address] 10/29/2023 10:00 AM EDT Clinical [place] [address] 10/29/2023 10:15 AM EDT Procedure [place] [address] 11/01/2023 5:00 PM EDT Office Visit [place] [address] Selene Browning, PhD [facility] [place] [address] 11/22/2023 4:40 PM EDT Office Visit Cardiology at [address] [address] Porsha Mcdaniels MD [facility] [place] [address] 12/13/2023 10:00 AM EDT Clinical Support [place] [phone] [facility] [place] [address] documented as of this encounter Visit Diagnoses Not on filedocumented in this encounter Care Teams Inspector Exhaust Emissions Relationship Specialty Start Date End Date Polo Pearce PA [address] [place] [address] PCP - General Internal Medicine 06/09/21 documented as of this encounter
--- OUTSIDE RECORDS SUMMARY | 2023-10-22 00:43 | XMS_ITS | Encounter Summary ---
Author Organization [facility] [place] [address] Care Team Providers Care Operations Section Manager Name Role Phone Polo Pearce Primary Care Provider [phone] Encounter Details Date Type Department Care Team (Late st Contact Info) Description 10/20/2022 Telephone Cardiology at [address] [address] Gianna Day RN Social History Tobacco Use Types Packs/Day [...] PM EDT Office Visit Cardiology at [address] [address] Jaspreet Kinsey MD [facility] [place] [address] 10/28/2023 9:00 AM EDT Office [place] [address] 10/29/2023 10:00 AM EDT Clinical [place] [address] 10/29/2023 10:15 AM EDT Procedure [place] [address] 11/01/2023 5:00 PM EDT Office [place] [phone] Selene Browning, PhD [facility] [place] [address] 11/22/2023 4:40 PM EDT Office Visit Cardiology at [address] [address] Porsha Mcdaniels MD [facility] [place] [address] 12/13/2023 10:00 AM EDT Clinical [place] [address] [facility] [place] [address] documented as of this encounter Visit Diagnoses Not on filedocumented in this encounter Care Teams Operations Section Manager Relationship Specialty Start Date End Date Polo Pearce PA [address] [place] [address] PCP - General Internal Medicine 06/09/21 documented as of this encounter
--- OUTSIDE RECORDS SUMMARY | 2023-10-22 00:43 | XMS_ITS | Encounter Summary ---
Author Organization [facility] Address [facility] [place] [address] Care Team Providers Care Teller Vault Name Role Phone Polo Pearce Primary Care Provider [phone] Reason for Visit * Reason Onset Date Comments Results 08/17/2022 Encounter Details Date Type Department Care Team (Late st Contact Info) Description 08/17/2022 Telephone Cardiology at [address] [address] Jaspreet Kinsey MD [facility] [place] [address] Results Social History Tobacco Use Types Packs/Day [...] PM EDT Office Visit Cardiology at [address] [address] Jaspreet Kinsey MD [facility] [place] [address] 10/28/2023 9:00 AM EDT Office Visit [place] [address] 10/29/2023 10:00 AM EDT Clinical Support [place] [address] 10/29/2023 10:15 AM EDT Procedure visit [place] [address] 11/01/2023 5:00 PM EDT Office [place] [phone] Selene Browning, PhD [facility] [place] [address] 11/22/2023 4:40 PM EDT Office Visit Cardiology at [address] [phone] Porsha Mcdaniels MD [facility] [place] [address] 12/13/2023 10:00 AM EDT Clinical [place] [address] Lucero Romero, [facility] [place] [address] documented as of this encounter Visit Diagnoses Not on filedocumented in this encounter Care Teams Teller Vault Relationship Specialty Start Date End Date Polo Pearce PA [address] [place] [address] PCP - General Internal Medicine 06/09/21 documented as of this encounter
--- OUTSIDE RECORDS SUMMARY | 2023-10-22 00:43 | XMS_ITS | Encounter Summary ---
Author Organization [facility] [place] [address] Care Team Providers Care Leisure Travel Agent Name Role Phone Polo Pearce Primary Care Provider [phone] Encounter Details Date Type Department Care Team (Late st Contact Info) Description 10/20/2022 8:00 AM EDT Tech [place] [address] Florencia Callahan, JANUSZ Pulmonary embolism, unspecified chronicity, unspecified pulmonary embolism [...] PM EDT Office Visit Cardiology at [address] [address] Jaspreet Kinsey MD [facility] [place] [address] 10/28/2023 9:00 AM EDT Office [place] [address] 10/29/2023 10:00 AM EDT Clinical [place] [address] 10/29/2023 10:15 AM EDT Procedure [place] [address] 11/01/2023 5:00 PM EDT Office [place] [address] Selene Browning, PhD [facility] [place] [address] 11/22/2023 4:40 PM EDT Office Visit Cardiology at [address] [phone] Porsha Mcdaniels MD [facility] [place] [address] 12/13/2023 10:00 AM EDT Clinical [place] [phone] Lucero Romero, [facility] [place] [address] documented as of this encounter Procedures Procedure [...] (Bezet) 525 ms MUSE SYSTEM Calculated R [place] 41 degrees MUSE SYSTEM Calculated T [place] 40 degrees MUSE SYSTEM INTERPRETATION Atrial fibrillation Nonspecific ST and T wave abnormality Prolonged QTc Abnormal ECG When compared with ECG of 08-OCT-2022 16:19, Atrial fibrillation has replaced Sinus rhythm Vent. rate has increased BY ??34 BPM Nonspecific T wave abnormality, improved in Inferior leads QT has lengthened I personally reviewed the tracing and edited the fellows interpretation Confirmed by fellow Otis Rader ([id number]) on 10/20/2022 3:03:05 PM Confirmed by MD Maxwell Hannah ([id number]) on 10/20/2022 7:08:19 PM MUSE SYSTEM 10/20/2022 10:0 3 AM EDT 10/20/2022 7:08 PM EDT Unknown ECG ORDERABLES MUSE SYSTEM * Duplex Study for DVT, Bilat legs (10/20/2022 8:06 AM EDT) VB Text Report Department: Vascular Surgery Lab Patient: [id number] (LOIDA ROQUE) CPT: 87411 Referring Physician: MAMIE MARX ?? Phone: Indications: [...] VASCUBASE 10/20/2022 8:06 AM EDT Mamie Marx PHYSICIAN RELATIONS SPECIALIST VASCULAR ORDERABLES VASCUBASE documented in this encounter Visit Diagnoses Diagnosis Pulmonary embolism, unspecified chronicity, unspecified pulmonary embolism type, unspecified whether acute cor pulmonale present documented in this encounter Care Teams Leisure Travel Agent Relationship Specialty Start Date End Date Polo Pearce PA [address] [place] [address] PCP - General Internal Medicine 06/09/21 documented as of this encounter
--- OUTSIDE RECORDS SUMMARY | 2023-10-22 00:43 | XMS_ITS | Encounter Summary ---
Author Organization [facility] Address [facility] [place] [address] Care Team Providers Care Focusing Machine Operator Name Role Phone Polo Pearce Primary Care Provider [phone] Reason for Visit * Reason Onset Date Comments Ascites 07/28/2022 Chest Pain 07/28/2022 Encounter Details Date Type Department Care Team (Late st Contact Info) Description 07/28/2022 Telephone Cardiology at [address] [address] Jaspreet Kinsey MD [place] [address] Ascites; Chest Pain Social History Tobacco Use [...] 10:10 AM EDT Indira is inpatient at [facility] today. Nurse Madison indicates she is [...] Creat 1.3 Plan: will remain inpatient at [facility] Outpatient CT heart planned on July 30 - cancel and reschedule (notified [facility] card lab L[place]na) documented in this encounter Plan of Treatment Upcoming Encounters Date Type Department Care Team (Late st Contact Info) Description 10/26/2023 4:00 PM EDT Office Visit Cardiology at [address] [place] [address] Jaspreet Kinsey MD [facility] [address] 10/28/2023 9:00 AM EDT Office [place] [address] 10/29/2023 10:00 AM EDT Clinical [place] [address] 10/29/2023 10:15 AM EDT Procedure [place] [address] 11/01/2023 5:00 PM EDT Office [place] [address] Selene Browning, PhD [facility] [place] [address] 11/22/2023 4:40 PM EDT Office Visit Cardiology at [address] [phone] Porsha Mcdaniels MD [facility] [address] 12/13/2023 10:00 AM EDT Clinical [place] [address] Lucero Romero, RD [facility] [place] [address] documented as of this encounter Visit Diagnoses Not on filedocumented in this encounter Care Teams Focusing Machine Operator Relationship Specialty Start Date End Date Polo Pearce PA [address] [place] [address] PCP - General Internal Medicine 06/09/21 documented as of this encounter
--- OUTSIDE RECORDS SUMMARY | 2023-10-22 00:43 | XMS_ITS | Encounter Summary ---
Author Organization [facility] Address [facility] [place] [address] Care Team Providers Care Explosives Handler Name Role Phone Polo Pearce Primary Care Provider [phone] Reason for Visit * Reason Comments Congestive Heart Failure HFpEF Encounter Details Date Type Department Care Team (Late st Contact Info) Description 10/08/2022 4:00 PM EDT Office Visit Cardiology at [address] [address] Jaspreet Kinsey MD [facility] [place] [address] Pulmonary embolism, unspecified chronicity, unspecified pulmonary embolism [...] through Care Everywhere. * Low Sodium Diet (Citizen Of [place]) * Low Sodium Foods: General Info (Citizen [place]) documented in this encounter Progress Notes * [...] be estimated Intercurrently, patient was admitted to [facility] 09/2022. She presented after developing acute worseningof [...] 30 DAYS fluticasone propionate (FLONASE) 50 mcg/actuation [place], Suspension 1 spray, Each Nare, DAILY gabapentin [...] ejection fraction 05/2021: subacute, presented to [facility] with RUQ pain, weight gain, [...] PM EDT Office Visit Cardiology at [address] [address] Jaspreet Kinsey MD [facility] [place] [address] 10/28/2023 9:00 AM EDT Office Visit [place] [address] 10/29/2023 10:00 AM EDT Clinical Support [place] [address] 10/29/2023 10:15 AM EDT Procedure visit [place] [address] 11/01/2023 5:00 PM EDT Office [place] [address] Selene Browning, PhD [facility] [place] [address] 11/22/2023 4:40 PM EDT Office Visit Cardiology at [address] [address] Porsha Mcdaniels MD [facility] [place] [address] 12/13/2023 10:00 AM EDT Clinical Support [place] [address] Lucero Romero, [place] [facility] [place] [address] documented as of this encounter Visit Diagnoses Diagnosis Pulmonary embolism, unspecified chronicity, unspecified pulmonary embolism type, unspecified whether acute cor pulmonale present Heart failure with preserved ejection fraction, unspecified HF chronicity Chronic heart failure with preserved ejection fraction documented in this encounter Care Teams Explosives Handler Relationship Specialty Start Date End Date Polo Pearce PA [address] [facility] [address] [place] [address] PCP - General Internal Medicine 06/09/21 documented as of this encounter
--- OUTSIDE RECORDS SUMMARY | 2023-10-22 00:43 | XMS_ITS | Encounter Summary ---
Author [place] [address] Care Team Providers Care Test Department Helper Name Role Phone Polo Pearce Primary Care Provider [phone] Encounter Details Date Type Department Care Team (Late st Contact Info) Description 02/08/2023 Orders [place] [id number] Unknown None Social History Tobacco Use Types [...] PM EDT Office Visit Cardiology at [address] [address] Jaspreet Kinsey MD [facility] [place] [address] 10/28/2023 9:00 AM EDT Office [place] [address] 10/29/2023 10:00 AM EDT Clinical [place] [address] 10/29/2023 10:15 AM EDT Procedure [place] [address] 11/01/2023 5:00 PM EDT Office Visit [place] [address] Selene Browning, PhD [facility] [place] [address] 11/22/2023 4:40 PM EDT Office Visit Cardiology at [address] [address] Porsha Mcdaniels MD [facility] [place] [address] 12/13/2023 10:00 AM EDT Clinical Support [place] [address] [facility] [place] [address] documented as of this encounter Procedures Procedure Name Priority Date/Time Associated Diagnosis Comments ECHOCARDIOGRAM TRANSTHORACIC Routine 02/08/2023 11:40 PM EST documented in this encounter Results * Echocardiogram Transthoracic (02/08/2023 11:40 PM EST) Anatomical Region Laterality Modality Cardiac Other 02/08/2023 11:4 0 PM EST Narrative 02/10/2023 3:09 PM EST [address] [place] [address] ? Echocardiogram Report Name: LOIDA ROQUE ?Study [...] without a pericardial effusion. Procedure Limited - 50594. Suboptimal quality. There is normal sinus rhythm. [...] Note Willy Gómez MD - 02/10/2023 [address] [place] [id number] Echocardiogram Report Name: LOIDA ROQUE Study Date: [...] without a pericardial effusion. Procedure Limited - [id number]. Suboptimal quality. There is normal sinus rhythm. [...] on filedocumented in this encounter Care Teams Test Department Helper Relationship Specialty Start Date End Date Polo Pearce PA [address] [place] [address] PCP - General Internal Medicine 06/09/21 documented as of this encounter
--- OUTSIDE RECORDS SUMMARY | 2023-10-22 00:43 | XMS_ITS | Encounter Summary ---
[place] [address] Care Team Providers Care Board Certified Arts Therapist Name Role Phone Polo Pearce Primary Care Provider [phone] Reason for Visit * Auth/Cert (Routine) Specialty Diagnoses / Procedures Referred By Jayant harris Referred To Contact Diagnoses NSTEMI (non-ST elevated myocardial infarction) NSTEMI Procedures EMERGENCY Willy Olivera MD [facility] [place] [address] [facility] Referral ID Status Reason Start Date Expiration Date Visits Re quested Visits Authorized [id number] 1 1 Encounter Details Date Type Department Care Team (Latest Contact Info) Description 09/27/2022 6:50 AM EDT - 09/27/2022 11:59 PM EDT Hospital Encounter [place] [address] Discharge Disposition: Home Social History Tobacco Use [...] as needed. fluticasone propionate (FLONASE) 50 mcg/actuation [place], Suspension 1 spray by Each Nare route [...] PM EDT Office Visit Cardiology at [address] [address] Jaspreet Knisey MD [facility] [place] [address] 10/28/2023 9:00 AM EDT Office [place] [address] 10/29/2023 10:00 AM EDT Clinical Support [place] [address] 10/29/2023 10:15 AM EDT Procedure [place] [address] 11/01/2023 5:00 PM EDT Office Visit [place] [address] Selene Browning, PhD [facility] [place] [address] 11/22/2023 4:40 PM EDT Office Visit Cardiology at [address] [address] Porsha Mcdaniels MD [facility] [address] 12/13/2023 10:00 AM EDT Clinical Support Gastroenterology at [place] [phone] [facility] [place] [address] documented as of this encounter Procedures Procedure [...] mLs documented in this encounter Care Teams Board Certified Arts Therapist Relationship Specialty Start Date End Date Polo Pearce PA [address] [place] [address] PCP - General Internal Medicine 06/09/21 documented as of this encounter
--- OUTSIDE RECORDS SUMMARY | 2023-10-22 00:43 | XMS_ITS | Encounter Summary ---
Author Organization [facility] [place] [address] Care Team Providers Care Traffic Inspector Name Role Phone Polo Pearce Primary Care Provider [phone] Encounter Details Date Type Department Care Team (Late st Contact Info) Description 07/29/2022 9:45 PM EDT Ancillary Procedure Radiology [place] [address] Marcia Kamara MD [facility] [place] [address] Social History Tobacco Use Types Packs/Day Years [...] Office Visit Cardiology at [address] [address] Jaspreet Kinsey MD [facility] [place] [address] 10/28/2023 9:00 AM EDT Office Visit [place] [address] 10/29/2023 10:00 AM EDT Clinical Support [place] [address] 10/29/2023 10:15 AM EDT Procedure visit [place] [address] 11/01/2023 5:00 PM EDT Office Visit [place] [phone] Selene Browning, PhD [facility] [place] [address] 11/22/2023 4:40 PM EDT Office Visit Cardiology at [address] [phone] oPrsha Mcdaniels MD [facility] [place] [address] 12/13/2023 10:00 AM EDT Clinical Support [place] [address] Lucero Romero, [place] [facility] [place] [place] [address] documented as of this encounter Procedures Procedure Name Priority Date/Time Associated Diagnosis Comments FILM LIBRARY STORAGE ONLY CT CHEST Routine 07/29/2022 9:43 PM EDT documented in this encounter Results * Film Library- Storage Only CT Chest (07/29/2022 9:43 PM EDT) Narrative [facility] - 07/29/2022 9:43 PM EDT This exam is auto-finalizing. It's purpose is for storage only. Marcia Kamara MD IMG FILM LIBRARY ORD ERABLES [place], [place] documented in this encounter Visit Diagnoses Not on filedocumented in this encounter Care Teams Traffic Inspector Relationship Specialty Start Date End Date Polo Pearce PA [address] [place] [address] PCP - General Internal Medicine 06/09/21 documented as of this encounter
--- OUTSIDE RECORDS SUMMARY | 2023-10-22 00:43 | XMS_ITS | Encounter Summary ---
[place] [address] Care Team Providers Care Direct Support Staff Member Name Role Phone Polo Pearce Primary Care Provider [phone] Reason for Visit * Auth/Cert (Routine) Specialty Diagnoses / Procedures Referred By Jayant harris Referred To Contact Diagnoses NSTEMI (non-ST elevated myocardial infarction) NSTEMI Procedures EMERGENCY IPI Susannah Gómez MD [facility] [place] [address] [facility] Referral ID Status Reason Start Date Expiration Date Visits Re quested Visits Authorized [id number] 1 1 Encounter Details Date Type Department Care Team (Latest Contact Info) Description 09/26/2022 3:42 PM EDT - 09/28/2022 5:02 PM EDT Hospital Encounter Heart and Vascular Unit Level 4 [place] [address] [facility] [place] [address] Non-ST elevation myocardial infarction (NSTEMI) Discharge Disposition: [...] to the point that she presented to [facility] at around 630 or 7 AM this morning. At OSH: Patient presented with soft blood pressures of 90s/50s which improved with fluids. Initial troponins above 800. EKG with sinus bradycardia with inferolateral ST segment depressions, possibly increased from prior. OSH provider loaded full dose aspirin and started therapeutic Lovenox prior to transfer. On presentation to [facility] patient notes some constant chest pain that is approx 5/10 in severity centered over left chest. She has no shortness of breath or PND. On a regular day patient could walk about 30 feet on a flat surface before becoming shortness of breath. 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 She is under a considerable amount of [...] days. Refills: 0 fluticasone propionate 50 mcg/actuation Ford, Suspension Commonly known as: Flonase 1 spray [...] 4:00 PM Jaspreet Kinsey MD Cardiology at [place] Arrive at: [facility] [address] [phone] 10/20/2022 8:00 AM Florencia Callahan [place] Vascular Lab at [facility] Arrive at: [place] [address]V [phone] 10/20/2022 9:00 AM Umberto Abbott MD Vascular Surgery at [facility] Arrive at: [place] [address]V [phone] Provider Contact Information: JOCY [address] [facility] [address] Discharge References/Attachments: Discharge References/Attachments None documented in [...] October 08, 2022 at 4:00 pm in [place]). MEDICATION INSTRUCTIONS: At discharge, START - amlodipine [...] as needed. fluticasone propionate (FLONASE) 50 mcg/actuation Ford, Suspension 1 spray by Each Nare route [...] EDT CARDIOLOGY S2 Daily Progress Note Pager [phone] Admit Date: 09/26/2022 Encounter Date: September 27, [...] 29-35-30. Chest pain improved en route to [facility], some improvement with nitro. [...] to the point that she presented to [facility] at around 630 or 7 AM this morning. At OSH: Patient presented with soft blood pressures of 90s/50s which improved with fluids. Initial troponins above 800. EKG with sinus bradycardia with inferolateral ST segment depressions, possibly increased from prior. OSH provider loaded full dose aspirin and started therapeutic Lovenox prior to transfer. On presentation to [facility] patient notes some constant chest pain that is approx 5/10 in severity centered over left chest. She has no shortness of breath or PND. On a regular day patient could walk about 30 feet on a flat surface before becoming shortness of breath. 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 She is under a considerable amount of [...] 30 DAYS fluticasone propionate (FLONASE) 50 mcg/actuation Ford, Suspension 1 spray, Each Nare, DAILY gabapentin [...] Holman MD Internal Medicine, PGY-1 Cardiology M1-S1, #[id number] Cardiology M1-S2, #[id number] 09/26/2022, 6:07 PM Cardiology Staff Addendum Loida [...] COVID test: Lab Results Component Value Date [id number] Not Detected 06/13/2021 Present on Admission: NSTEMI (non-ST elevated myocardial infarction) Hospitalizations Within the Past 30 Days: no previous admission in last 30 days Patient receiving hospital care under Inpatient status. Admission order reviewed. Health/Prescription Coverage: Primary Insurance: [employer] [place] Payor: [employer] [facility] [place] / Plan: [place]ANGE / Product Type: *No Product type* / Secondary Insurance: N/A ; Prescription Coverage: Preferred Pharmacy: [facility] [place], [place] - [address] [facility] [address] [facility] [address] [place], [place] - [address] [facility] [address] [facility] [address] [facility] [address] Advance Care Planning: Attempt Cardiopulmonary Resuscitation - Inpatient <no information> - Current Functional Ability: Independent Functional Status Prior to Admission: Home Environment: . Current Living Arrangements: home/apartment/condo. Accessibility Concerns: . [facility] [address] [facility] [address] Social & Family Supports: All names listed [...] private vehicle when medically ready. Registered Nurse Immigration Attorney / Electroplating Worker will continue to follow patient???s progress and remain available if situation changes for coordination of care, psychosocial support and/or discharge planning. Office of Care Management Fab GALARZA, RN Case Management [phone] * Plan of Care - Antonio Swann [...] Office Visit Cardiology at [address] [place] [address] [facility] [place] [address] 10/28/2023 9:00 AM EDT Office [place] [address] 10/29/2023 10:00 AM EDT Clinical [place] [address] 10/29/2023 10:15 AM EDT Procedure [place] [address] 11/01/2023 5:00 PM EDT Office [place] [phone] Selene Browning, PhD [facility] [place] [address] 11/22/2023 4:40 PM EDT Office Visit Cardiology at [address] [phone] [facility] [place] [address] 12/13/2023 10:00 AM EDT Clinical [place] [address] [facility] [place] [place] [address] documented as of this encounter Procedures Procedure [...] this encounter Results * Blood Gas Venous ([facility]) (09/28/2022 3:39 PM EDT) pH, Venous 7.32 7.32 - 7.42 [facility] PCO2, Venous 45 41 - 51 mmHg [facility] PO2, Venous 30 25 - 40 mmHg [facility] Bicarbonate, Venous 22.8 mmol/L [facility] Base Excess, Venous -3.3 mmol/L [facility] Hgb Blood Gas 15.2 11.7 - 15.5 g/dL [facility] Oxyhemoglobin, Venous 52.4 % [facility] Carboxyhemoglob in, Venous 1.0 % [facility] Comment: Nonsmokers: 0.5-1.5% COHB Smokers: Variable, but usually less than 10% Toxic: 20-30% COHB Lethal: Greater than 60% COHB Methemoglobin, Venous 0.3 <=1.5 % [facility] Na Whole Blood 139 135 - 145 mmol/L [facility] K Whole Blood 4.6 3.5 - 5.0 mmol/L [facility] Comment: Please note: Patients with WBC >100,000 may have falsely elevated Potassium levels. Contact the Clinical Chemistry Laboratory if there are any questions. ICa Whole Blood 1.23 1.15 - 1.33 mmol/L [facility] Comment: Note: ??Total bilirubin higher than 20 mg/dL may lead to falsely low ionized calcium. CL Whole Blood 104 98 - 107 mmol/L [facility] Gluc Whole Bld 87 65 - 199 mg/dL [facility] Comment:Diabetes: >=200 mg/d L plus symptoms Lactate WB 1.3 0.5 - 2.2 mmol/L [facility] Blood Gas Source Venous [facility] Blood Venous Draw / Unknown 09/28/2022 3:39 PM EDT 09/28/2022 3:50 PM EDT Narrative Resulting Agency Comment Spec In Lab Ciro Lovell MD CHEMISTRY ORDERABLES [facility] [place] [address] * EKG 12 Lead (09/28/2022 1:58 PM EDT) Ventricular rate 57 BPM MUSE SYSTEM Atrial Rate 57 BPM MUSE SYSTEM P-R Interval 180 ms MUSE SYSTEM QRS Duration 86 ms MUSE SYSTEM Q-T Interval 414 ms MUSE SYSTEM QTC Calculated (Bezet) 402 ms MUSE SYSTEM Calculated P Capron 40 degrees MUSE SYSTEM Calculated R Capron 67 degrees MUSE SYSTEM Calculated T Capron -56 degrees MUSE SYSTEM INTERPRETATION Sinus bradycardia [...] Confirmed by MD Salvador Jon ([id number]) on 09/28/2022 3:16:41 PM MUSE SYSTEM [...] who have questions please contact the health point of care specialist that requested your imaging first. ? Electronically signed by: Jose Gallegos MD, [facility] ([phone]), at 09/28/2022 4:58 PM Narrative 09/28/2022 4:58 [...] patients who have questions please contactthe health point of care specialist that requested your imaging first. Electronically signed by: Jose Gallegos MD, [facility]([phone]), at 09/28/2022 4:58 PM Susannah Gómez MD IMG CT ORDERABLES * (ABNORMAL) Troponin (09/28/2022 6:56 AM EDT) Troponin-T, High Sensitivity 21(H) <=14 ng/L [facility] Comment: This patient's troponin T concentration [...] troponin value can be found in the [facility] Test Catalog Troponin - [facility] Test Catalog Reference: Fourth Triangle Definition of Myocardial Infarction. Journal of the [place] College [employer] 2018;72:4112-2608 Blood 09/28/2022 6:56 AM EDT 09/28/2022 7:01 AM EDT Narrative Resulting Agency Comment Spec In Lab Susannah Gómez MD CHEMISTRY ORDERABLES [facility] [address] * Differential, Automated (09/28/2022 3:49 AM EDT) Neutrophil % 45.9 % [facility] Neutrophil Absolute 2.92 1.70 - 6.10 x10(3)/[facility] Lymph % 40.5 % [facility] Lymphocytes Abs 2.6 0.9 - 3.2 x10(3)/[facility] Monocyte % 8.9 % [facility] Monocyte Abs 0.6 0.3 - 0.9 x10(3)/[facility] Eos % 3.3 % [facility] Eosinophils Abs 0.2 0.0 - 0.4 x10(3)/[facility] Basophil % 1.1 % [facility] Baso Absolute 0.1 0.0 - 0.1 x10(3)/[facility] Immature Gran % 0.30 % [facility] Comment: Immature granulocytes(IG's)percentage and absolute count will include metamyelocytes, myelocytes, and promyelocytes. Blood smears from CBCs yielding IG's will be scanned manually for concordance. If this scan disagrees with the automated IG or if promyelocytes are noted, a manual differential will be performed. Immature Gran Absolute 0.02 0.00 - 0.04 x10(3)/[facility] Blood 09/28/2022 3:49 AM EDT 09/28/2022 4:11 AM EDT Narrative Resulting Agency Comment Spec In Lab Vimal Holman MD HEMATOLOGY ORDERABLE S Performing Organization Address City/State/[facility] Co de Phone Number [facility] [address] * (ABNORMAL) Hemogram (09/28/2022 3:49 AM EDT) White Blood Cell 6.4 4.0 - 9.5 x10(3)/mc L [facility] Red Blood Cell 4.37 4.00 - 5.21 x10(6)/mc L [facility] Hemoglobin 13.7 11.7 - 15.5 g/dL [facility] Hematocrit 41.6 35.7 - 45.8 % [facility] Mean Cell Volume 95.2(H) 82.6 - 94.4 fL [facility] Mean Cell Hemoglobin 31.4 27.1 - 32.0 pg [facility] Mean Cell Hemoglobin Concentration 32.9 31.7 - 35.0 g/dL [facility] Platelet 224 145 - 357 x10(3)/mc L [facility] RDW Standard Deviation 43.1 37.0 - 46.0 fL [facility] RDW coefficient of variation 12.3 11.5 - 14.1 % [facility] Mean Platelet Volume 11.3 7.6 - 12.9 fL [facility] NRBC% auto 0.0 % [facility] NRBC Absolute 0.000 0.000 - 0.000 x10(3)/mc L [facility] Blood 09/28/2022 3:49 AM EDT 09/28/2022 4:11 AM EDT Narrative Resulting Agency Comment Spec In Lab Vimal Holman MD HEMATOLOGY ORDERABLE S Performing Organization Address City/State/[facility] Co de Phone Number [facility] [address] * (ABNORMAL) Troponin (09/28/2022 3:49 AM EDT) Troponin-T, High Sensitivity 25(H) <=14 ng/L [facility] Comment: This patient's troponin T concentration [...] troponin value can be found in the [facility] Test Catalog Troponin - [facility] Test Catalog Reference: Fourth Triangle Definition of Myocardial Infarction. Journal of the [place] College [employer] 2018;72:3024-0461 Blood 09/28/2022 3:49 AM EDT 09/28/2022 4:11 AM EDT Narrative Resulting Agency Comment Spec In Lab Susannah Gómez MD CHEMISTRY ORDERABLES [facility] [place] [address] * (ABNORMAL) Basic Metabolic Panel (non-fasting) (09/28/2022 3:49 AM EDT) Glucose 97 65 - 199 mg/dL [facility] Comment:Diabetes: >=200 mg/d L plus symptoms Blood Urea Nitrogen 26(H) 8 - 18 mg/dL [facility] Creatinine 1.01 0.70 - 1.20 mg/dL [facility] Sodium 137 135 - 145 mmol/L [facility] Potassium 4.4 3.5 - 5.0 mmol/L [facility] Comment: Please note: ??Patients with WBC >100,000 may have falsely elevated Potassium levels. ??For accurate Potassium quantification in these patients send serum separator tube (gold top) for subsequent determinations. ??Contact the Clinical Chemistry Laboratory if there are any questions. Chloride 108(H) 98 - 107 mmol/L [facility] Carbon Dioxide 18(L) 22 - 31 mmol/L [facility] Anion Gap 11 5 - 15 mmol/L [facility] Calcium 9.0 8.5 - 10.5 mg/dL [facility] Est Glomerular Filtration Rate 67 >=60 mL/min/1. 73 m?? [facility] Comment: This patient's estimated GFR was [...] In Lab Susannah Gómez MD CHEMISTRY ORDERABLES [facility] [address] * XR Chest One View (09/28/2022 3:37 [...] who have questions please contact the health point of care specialist that requested your imaging first. [...] patients who have questions please contactthe health point of care specialist that requested your imaging first. Susannah Gómez MD IMG DX ORDERABLES * EKG 12 Lead (09/28/2022 3:11 AM EDT) Ventricular rate 45 BPM MUSE SYSTEM Atrial Rate 45 BPM MUSE SYSTEM P-R Interval 196 ms MUSE SYSTEM QRS Duration 90 ms MUSE SYSTEM Q-T Interval 554 ms MUSE SYSTEM QTC Calculated (Bezet) 479 ms MUSE SYSTEM Calculated P Capron 33 degrees MUSE SYSTEM Calculated R Capron 28 degrees MUSE SYSTEM Calculated T Capron 58 degrees MUSE SYSTEM INTERPRETATION Sinus bradycardia Nonspecific ST and T wave abnormality Abnormal ECG When compared with ECG of 26-SEP-2022 17:33, QT has lengthened Confirmed by fellow Vaishnavi Pratt ([id number]) on 09/28/2022 9:30:13 AM Confirmed by MD [...] 1970 ? Height: 163 cm ? Account: [id number] Age: 52 yrs ? Weight: 102 kg Gender: Female ?BSA: 2.1 m2 Ordering Physician: SUSANNAH GÓMEZ Referring Physician: SUSANNAH GÓMEZ Performed By: HAIM Arnold Reason For Study: NSTEMI Exam Location: [facility]. Interpretation Summary - Left ventricular [...] 12/31/21, there is no significant change. Procedure Complete-[id number]. Image enhancement Optison was used for left [...] Location: : 1970 Height: 163 cm Account: [id number] Age: 52 yrs Weight: 102 kg Gender: Female BSA: 2.1 m2 Ordering Physician: SUSANNAH GÓMEZ Referring Physician: SUSANNAH GÓMEZ Performed By: HAIM Arnold Reason For Study: NSTEMI Exam Location: [facility]. Interpretation Summary - Left ventricular [...] on 12/31/21, there is nosignificant change. Procedure Complete-[id number]. Image enhancement Optison was used for left [...] 3:07 AM EDT) Neutrophil % 49.4 % [facility] Neutrophil Absolute 3.02 1.70 - 6.10 x10(3)/[facility] Lymph % 36.4 % [facility] Lymphocytes Abs 2.2 0.9 - 3.2 x10(3)/[facility] Monocyte % 10.3 % [facility] Monocyte Abs 0.6 0.3 - 0.9 x10(3)/[facility] Eos % 3.0 % [facility] Eosinophils Abs 0.2 0.0 - 0.4 x10(3)/[facility] Basophil % 0.7 % [facility] Baso Absolute 0.0 0.0 - 0.1 x10(3)/[facility] Immature Gran % 0.20 % [facility] Comment: Immature granulocytes(IG's)percentage and absolute count will include metamyelocytes, myelocytes, and promyelocytes. Blood smears from CBCs yielding IG's will be scanned manually for concordance. If this scan disagrees with the automated IG or if promyelocytes are noted, a manual differential will be performed. Immature Gran Absolute 0.01 0.00 - 0.04 x10(3)/[facility] Blood 09/27/2022 3:07 AM EDT 09/27/2022 3:18 AM EDT Narrative Resulting Agency Comment Spec In Lab Vimal Holman MD HEMATOLOGY ORDERABLE S [facility] [address] * (ABNORMAL) Hemogram (09/27/2022 3:07 AM EDT) White Blood Cell 6.1 4.0 - 9.5 x10(3)/mc L [facility] Red Blood Cell 4.20 4.00 - 5.21 x10(6)/mc L [facility] Hemoglobin 13.3 11.7 - 15.5 g/dL [facility] Hematocrit 40.9 35.7 - 45.8 % [facility] Mean Cell Volume 97.4(H) 82.6 - 94.4 fL [facility] Mean Cell Hemoglobin 31.7 27.1 - 32.0 pg [facility] Mean Cell Hemoglobin Concentration 32.5 31.7 - 35.0 g/dL [facility] Platelet 223 145 - 357 x10(3)/mc L [facility] RDW Standard Deviation 45.0 37.0 - 46.0 fL [facility] RDW coefficient of variation 12.7 11.5 - 14.1 % [facility] Mean Platelet Volume 10.5 7.6 - 12.9 fL [facility] NRBC% auto 0.0 % [facility] NRBC Absolute 0.000 0.000 - 0.000 x10(3)/mc L [facility] Blood 09/27/2022 3:07 AM EDT 09/27/2022 3:18 AM EDT Narrative Resulting Agency Comment Spec In Lab Vimal Holman MD HEMATOLOGY ORDERABLE S Performing Organization Address City/State/[facility] Co de Phone Number [facility] [address] * (ABNORMAL) Troponin (09/27/2022 3:07 AM EDT) Troponin-T, High Sensitivity 30(H) <=14 ng/L [facility] Comment: This patient's troponin T concentration [...] troponin value can be found in the [facility] Test Catalog Troponin - [facility] Test Catalog Reference: Fourth Triangle Definition of Myocardial Infarction. Journal of the [place] [employer] 2018;72:5214-6080 Blood 09/27/2022 3:07 AM EDT 09/27/2022 3:18 AM EDT Narrative Resulting Agency Comment Spec In Lab Susannah Gómez MD CHEMISTRY ORDERABLES [facility] [place] [address] * (ABNORMAL) Basic Metabolic Panel (non-fasting) (09/27/2022 3:07 AM EDT) Glucose 88 65 - 199 mg/dL [facility] Comment:Diabetes: >=200 mg/d L plus symptoms Blood Urea Nitrogen 31(H) 8 - 18 mg/dL [facility] Creatinine 1.19 0.70 - 1.20 mg/dL [facility] Sodium 138 135 - 145 mmol/L [facility] Potassium 4.3 3.5 - 5.0 mmol/L [facility] Comment: Please note: ??Patients with WBC >100,000 may have falsely elevated Potassium levels. ??For accurate Potassium quantification in these patients send serum separator tube (gold top) for subsequent determinations. ??Contact the Clinical Chemistry Laboratory if there are any questions. Chloride 108(H) 98 - 107 mmol/L [facility] Carbon Dioxide 18(L) 22 - 31 mmol/L [facility] Anion Gap 12 5 - 15 mmol/L [facility] Calcium 8.9 8.5 - 10.5 mg/dL [facility] Est Glomerular Filtration Rate 55(L) >=60 mL/min/1. 73 m?? [facility] Comment: This patient's estimated GFR was [...] In Lab Susannah Gómez MD CHEMISTRY ORDERABLES [facility] [address] * Hemoglobin A1c (09/27/2022 3:07 AM EDT) Hemoglobin A1c 5.6 4.3 - 5.6 % [facility] Comment: Reference Range: 4.3 - 5.6% [...] Mellitus, Diabetes Care 2013; 36: Suppl. 1, K57-12 Estimated Average Glucose 114 mg/dL [facility] Comment: eAG equivalents for HbA1c percentages: [...] into estimated average glucose values. ??Diabetes Care 2008:31(8):4845-7494. Blood 09/27/2022 3:07 AM EDT 09/27/2022 3:18 AM EDT Narrative Resulting Agency Comment Spec In Lab Susannah Gómez MD CHEMISTRY ORDERABLES [facility] [address] * Lipid Panel (Reflex Direct LDL) (09/27/2022 3:07 AM EDT) Cholesterol, Total 228 mg/dL [facility] Comment: Lower Risk: <200 mg/dL Average Risk: 200-239 mg/dL Higher Risk: >nu=715 mg/dL Triglyceride 221 mg/dL [facility] Comment: Average Risk/Lower Risk: <150 mg/dL Borderline High Risk: 150-199 mg/dL High Risk: 200-499 mg/dL Very High Risk: >bu=713 mg/dL HDL Cholesterol 33 mg/dL [facility] Comment: Males: ?? Higher Risk: <40 mg/dL Females: ?? Higher Risk: <50 mg/dL LDL Cholesterol 151 mg/dL [facility] Comment: Lowest Risk: <100 mg/dL Lower Risk: 100-129 mg/dL Borderline High Risk: 130-159 mg/dL High Risk: 160-189 mg/dL Very High Risk: >we=552 mg/dL Cholesterol/HDL Ratio 6.9 ratio [facility] Lipid Interpretation See Note [facility] [facility] Comment: Lipid management should be guided by a patient? s ASCVD risk, goals and preferences. ACC/AHA Guidelines recommend high intensity statin if clinical ASCVD or LDL greater than or equal to 190 mg/dL. http://[email or web address] Companyurl.[email or web address]/RPW-ILJ-Cbergpedh Adults aged 40-75 with LDL 70-189 mg/dL should have their 10 year ASCVD risk estimated with the ACC/AHA ASCVD risk estimator and drafter http://tools.acc.org/TFJGS-Uslc-Fqrcfonul/ Statin should be discussed if risk greater [...] In Lab Susannah Gómez MD CHEMISTRY ORDERABLES [facility] [place] [address] * (ABNORMAL) Troponin (09/26/2022 8:55 PM EDT) Troponin-T, High Sensitivity 35(H) <=14 ng/L [facility] Comment: This patient's troponin T concentration [...] troponin value can be found in the [facility] Test Catalog Troponin - [facility] Test Catalog Reference: Fourth Triangle Definition of Myocardial Infarction. Journal of the [place] [employer] 2018;72:4994-9410 Blood 09/26/2022 8:55 PM EDT 09/26/2022 8:59 PM EDT Narrative Resulting Agency Comment Spec In Lab Susannah Gómez MD CHEMISTRY ORDERABLES Performing Organization Address [facility] [place] [address] * Gold Tube HOLD (09/26/2022 5:50 PM EDT) Gold Hold Sample in lab. [facility] Blood Venous Draw / Unknown 09/26/2022 5:50 PM EDT 09/26/2022 6:13 PM EDT Vimal Holman MD CHEMISTRY ORDERABLES Performing Organization Address [facility] de Phone Number [place] [phone] * Differential, Automated (09/26/2022 5:50 PM EDT) Neutrophil % 53.9 % [facility] Neutrophil Absolute 2.93 1.70 - 6.10 x10(3)/[facility] Lymph % 34.3 % [facility] Lymphocytes Abs 1.9 0.9 - 3.2 x10(3)/[facility] Monocyte % 8.3 % [facility] Monocyte Abs 0.4 0.3 - 0.9 x10(3)/[facility] Eos % 2.4 % [facility] Eosinophils Abs 0.1 0.0 - 0.4 x10(3)/[facility] Basophil % 0.7 % [facility] Baso Absolute 0.0 0.0 - 0.1 x10(3)/[facility] Immature Gran % 0.40 % [facility] Comment: Immature granulocytes(IG's)percentage and absolute count will include metamyelocytes, myelocytes, and promyelocytes. Blood smears from CBCs yielding IG's will be scanned manually for concordance. If this scan disagrees with the automated IG or if promyelocytes are noted, a manual differential will be performed. Immature Gran Absolute 0.02 0.00 - 0.04 x10(3)/[facility] Blood 09/26/2022 5:50 PM EDT 09/26/2022 6:12 PM EDT Narrative Resulting Agency Comment Spec In Lab Vimal Holman MD HEMATOLOGY ORDERABLE S [facility] [address] * Hemogram (09/26/2022 5:50 PM EDT) White Blood Cell 5.4 4.0 - 9.5 x10(3)/[facility] Red Blood Cell 4.58 4.00 - 5.21 x10(6)/[facility] Hemoglobin 14.5 11.7 - 15.5 g/dL [facility] Hematocrit 42.4 35.7 - 45.8 % [facility] Mean Cell Volume 92.6 82.6 - 94.4 fL [facility] Mean Cell Hemoglobin 31.7 27.1 - 32.0 pg [facility] Mean Cell Hemoglobin Concentration 34.2 31.7 - 35.0 g/dL [facility] Platelet 182 145 - 357 x10(3)/[facility] RDW Standard Deviation 43.2 37.0 - 46.0 fL [facility] RDW coefficient of variation 12.6 11.5 - 14.1 % [facility] Mean Platelet Volume 11.3 7.6 - 12.9 fL [facility] NRBC% auto 0.0 % [facility] NRBC Absolute 0.000 0.000 - 0.000 x10(3)/[facility] Blood 09/26/2022 5:50 PM EDT 09/26/2022 6:12 PM EDT Narrative Resulting Agency Comment Spec In Lab Vimal Holman MD HEMATOLOGY ORDERABLE S [facility] [address] * (ABNORMAL) Basic Metabolic Panel (non-fasting) (09/26/2022 5:50 PM EDT) Glucose 81 65 - 199 mg/dL [facility] Comment:Diabetes: >=200 mg/d L plus symptoms Blood Urea Nitrogen 28(H) 8 - 18 mg/dL [facility] Creatinine 1.02 0.70 - 1.20 mg/dL [facility] Sodium 140 135 - 145 mmol/L [facility] Potassium 4.2 3.5 - 5.0 mmol/L [facility] Comment: Please note: ??Patients with WBC >100,000 may have falsely elevated Potassium levels. ??For accurate Potassium quantification in these patients send serum separator tube (gold top) for subsequent determinations. ??Contact the Clinical Chemistry Laboratory if there are any questions. Chloride 108(H) 98 - 107 mmol/L [facility] Carbon Dioxide 19(L) 22 - 31 mmol/L [facility] Anion Gap 13 5 - 15 mmol/L [facility] Calcium 9.0 8.5 - 10.5 mg/dL [facility] Est Glomerular Filtration Rate 66 >=60 mL/min/1. 73 m?? [facility] Comment: This patient's estimated GFR was [...] In Lab Susannah Gómez MD CHEMISTRY ORDERABLES [facility] [address] * Magnesium (09/26/2022 5:50 PM EDT) Magnesium 0.89 0.69 - 1.07 mmol/L [facility] Blood 09/26/2022 5:50 PM EDT 09/26/2022 6:12 PM EDT Narrative Resulting Agency Comment Spec In Lab Susannah Gómez MD CHEMISTRY ORDERABLES Performing Organization Address [facility] Co de Phone Number [facility] [address] * Calcium (09/26/2022 5:50 PM EDT) Calcium 9.0 8.5 - 10.5 mg/dL [facility] Blood 09/26/2022 5:50 PM EDT 09/26/2022 6:12 PM EDT Narrative Resulting Agency Comment Spec In Lab Susannah Gómez MD CHEMISTRY ORDERABLES Performing Organization Address [facility] de Phone Number [facility] [address] * (ABNORMAL) Prothrombin Time (09/26/2022 5:50 PM EDT) Prothrombin Time 14.3(H) 9.4 - 12.5 sec [facility] International Normalization Ratio 1.3 [facility] Comment: An INR <2.0 indicates adequate [...] ORDERABLE S Performing Organization Address [facility] Co de Phone Number [facility] [address] * (ABNORMAL) APTT (09/26/2022 5:50 PM EDT) Partial Thromboplastin Time 39(H) 25 - 37 sec [facility] Comment: The PTT is NOT appropriate for heparin monitoring. Use the Anti-Xa level for heparin monitoring (HEP UFH) or LMWH monitoring (HEP LMW). A PTT less than 37 seconds generally indicates adequate hemostasis. Blood 09/26/2022 5:50 PM EDT 09/26/2022 6:12 PM EDT Narrative Resulting Agency Comment Spec In Lab Susannah Gómez MD HEMATOLOGY ORDERABLE S Performing Organization Address City/[facility]/ZIP Co de Phone Number [facility] [address] * (ABNORMAL) pro-Brain Natriuretic Peptide (09/26/2022 5:50 PM EDT) NT-proBNP 1,069(H) <=124 pg/mL [facility] Blood 09/26/2022 5:50 PM EDT 09/26/2022 6:12 PM EDT Narrative Resulting Agency Comment Spec In Lab Susannah Gómez MD CHEMISTRY ORDERABLES Performing Organization Address [facility]/ZIP Co de Phone Number [facility] [address] * TSH (09/26/2022 5:50 PM EDT) Thyroid Stimulating Hormone 3.02 0.27 - 4.20 mcIU/mL [facility] Comment: Reference Interval (mcIU/mL): Females: ??First Trimester: 0.23-3.88 ??Second Trimester: 0.22-3.90 ??Third Trimester: 0.44-4.66 Blood 09/26/2022 5:50 PM EDT 09/26/2022 6:12 PM EDT Narrative Resulting Agency Comment Spec In Lab Susannah Gómez MD CHEMISTRY ORDERABLES Performing Organization Address City/[facility]/ZIP Co de Phone Number [facility] [address] * EKG 12 Lead (09/26/2022 5:33 PM EDT) Pathologist [facility] Ventricular rate 54 BPM MUSE SYSTEM Atrial Rate 54 BPM MUSE SYSTEM P-R Interval 180 ms MUSE SYSTEM QRS Duration 84 ms MUSE SYSTEM Q-T Interval 438 ms MUSE SYSTEM QTC Calculated (Bezet) 415 ms MUSE SYSTEM Calculated P Capron 20 degrees MUSE SYSTEM Calculated R Capron 21 degrees MUSE SYSTEM Calculated T Capron -28 degrees MUSE SYSTEM INTERPRETATION Sinus bradycardia ST & T wave abnormality, consider inferior ischemia Abnormal ECG When compared with ECG of 30-JUL-2022 09:33, T wave inversion now evident in Inferior leads Nonspecific T wave abnormality, worse in Anterolateral leads QT has shortened Confirmed by MD Hans, [place] ([id number]) on 10/02/2022 11:07:34 AM MUSE SYSTEM 09/26/2022 5:33 PM EDT 10/02/2022 11:07 AM EDT Unknown ECG ORDERABLES Performing Organization Address [facility] Co de Phone Number MUSE SYSTEM * CRP, acute inflammation (09/26/2022 5:01 PM EDT) [facility] C-Reactive Protein <3.0 <=4.9 mg/L [facility] Blood Venous Draw / Unknown 09/26/2022 5:01 PM EDT 09/26/2022 5:33 PM EDT Narrative Resulting Agency Comment Spec In Lab Paulo Ramachandran Jr., MD CHEMISTRY LOREN PONCE Performing Organization Address City/[facility] Co de Phone Number [facility] [address] * (ABNORMAL) Troponin (09/26/2022 5:01 PM EDT) [facility] Troponin-T, High Sensitivity 29(H) <=14 ng/L [facility] Comment: This patient's troponin T concentration [...] troponin value can be found in the [facility] Test Catalog Troponin - [facility] Test Catalog Reference: Fourth Triangle Definition of Myocardial Infarction. Journal of the [place] [employer] 2018;72:7880-1860 Blood 09/26/2022 5:01 PM EDT 09/26/2022 5:12 PM EDT Narrative Resulting Agency Comment Spec In Lab Susannah Gómez MD [place] [address] documented in this encounter Visit Diagnoses Diagnosis [...] DAILY, First dose (after last modification) on Wed09/28/22 at 0900, Until Discontinued, Routine Given 09/28/2022 [...] on Wed09/28/22 at 1545, Until Discontinued, Routine DULoxetine DR [...] (2 times per day), First dose on Wed09/26/22 at 2100, Until Discontinued, Routine Given 09/28/2022 9:31 AM EDT 100 mg Given 09/27/2022 9:09 PM EDT 100 mg Given 09/27/2022 8:47 AM EDT 100 mg gabapentin (Neurontin) capsule 600 mg 600 mg, Oral, NIGHTLY, First dose on Wed09/26/22 at 2100, Until Discontinued, Routine Given 09/27/2022 9:09 PM EDT 600 mg Given 09/26/2022 8:03 PM EDT 600 mg iohexoL (Omnipaque) (350 mg/mL) solution 0-200 mL 0-200 mL, Intravenous, ONCE PRN, 1 dose, Starting on Wed23 at 0849, Until 09/28/22 at 0849, Per Protocol, Warning Vesicant/Irritant Medication [...] 0847 (Given - Provider: Asya Michele RN) 09 (Given - Provider: Antonio Swann, ERWIN) enoxaparin (Lovenox) (100 mg/1 mL) subcutaneous injection 100 mg 100 mg, Subcutaneous, EVERY 12 HOURS SCHEDULED (2 times per day), First dose on 09/26/22 at 2100, Until Discontinued, Routine 2002 (Given - Provider: Kathleen Brown RN) 846 (Given - Provider: Asya Michele RN)2108 (Given - Provider: Samantha Patino RN) 09 (Given - Provider: Antonio Swann, ERWIN) gabapentin [...] 2003 (Given - Provider: Kathleen Brown RN) 08 (Given - Provider: Asya Micehle RN)2099 (Not Given - Provider: Samantha Patino RN - Reason: See comment - Comment: duplicate) 09 (Given - Provider: Antonio Swann RN) sodium chloride 0.9 % (flush) (BD PosiFlush Normal Saline 0.9) flush 5 mL 5 mL, Intravenous, 2 TIMES DAILY, First dose on 09/26/22 at 2100, Until Discontinued, Routine 2002 (Given - Provider: Kathleen Brown, ERWIN) 08 (Given - Provider: Asya Michele, ERWIN)2109 (Given - Provider: Samantha Patino, ERWIN) 09 (Given - Provider: Antonio Swann, ERWIN) topiramate [...] doses, Routine 1731 (Given - Provider: Mona Ogden RN) 1000 (Given - Provider: Asya Michele, ERWIN) 0243 (Given - Provider: Samantha Patino, ERWIN)0349 (Given - Provider: Samantha Patino, ERWIN)1359 (Given - Provider: Antoniotasha Swann RN) sodium chloride 0.9 % (flush) [...] Routine documented in this encounter Care Teams Direct Support Staff Member Relationship Specialty Start Date End Date Polo Pearce PA [address] [place] [address] PCP - General Internal Medicine 06/09/21 documented as of this encounter
--- OUTSIDE RECORDS SUMMARY | 2023-10-22 00:43 | XMS_ITS | Encounter Summary ---
Author Organization [facility] [place] [address] Care Team Providers Care Brushing Operator Name Role Phone Polo Pearce Primary Care Provider [phone] Encounter Details Date Type Department Care Team (Late st Contact Info) Description 09/26/2022 [place] [address] Paulo Ramachandran Jr., MD [facility] [place] [address] Social History Tobacco Use Types Packs/Day Years [...] vasospasm rather than a true Type I [place], however, given degree of troponin rise and [...] PM EDT Office Visit Cardiology at [address] [phone] Jaspreet Kinsey MD [facility] [place] [address] 10/28/2023 9:00 AM EDT Office [place] [address] 10/29/2023 10:00 AM EDT Clinical [place] [address] 10/29/2023 10:15 AM EDT Procedure [place] [address] 11/01/2023 5:00 PM EDT Office Visit [place] [address] Selene Browning, PhD [facility] [place] [address] 11/22/2023 4:40 PM EDT Office Visit Cardiology at [address] [phone] Porsha Mcdaniels MD [facility] [place] [address] 12/13/2023 10:00 AM EDT Clinical Support [place] [phone] Lucero Romero, AL[place] [facility] [place] [address] documented as of this encounter Visit Diagnoses Not on filedocumented in this encounter Care Teams Brushing Operator Relationship Specialty Start Date End Date Polo Pearce PA [address] [place] [address] PCP - General Internal Medicine 06/09/21 documented as of this encounter
--- OUTSIDE RECORDS SUMMARY | 2023-10-22 00:43 | XMS_ITS | Encounter Summary ---
Author Organization [facility] Address [facility] [place] [address] Care Team Providers Care Solar Sales Associate Name Role Phone Polo Pearce Primary Care Provider [phone] Encounter Details Date Type Department Care Team (Late st Contact Info) Description 09/26/2022 External [place] [address] Social History Tobacco Use Types Packs/Day Years [...] PM EDT Office Visit Cardiology at [address] [place] [address] Jaspreet Kinsey MD [facility] [place] [address] 10/28/2023 9:00 AM EDT Office [place] [address] 10/29/2023 10:00 AM EDT Clinical Support [place] [address] 10/29/2023 10:15 AM EDT Procedure visit [place] [address] 11/01/2023 5:00 PM EDT Office Visit Gastroenterology at [place] [phone] Selene Browning, PhD [facility] [place] [address] 11/22/2023 4:40 PM EDT Office Visit Cardiology at [address] [phone] Porsha Mcdaniels MD [facility] [place] [address] 12/13/2023 10:00 AM EDT Clinical Support Gastroenterology at [place] [phone] Lucero Romero, ALVA [facility] [place] [address] documented as of this encounter Procedures Procedure Name Priority Date/Time Associated Diagnosis Comments ECG SCAN Routine 09/26/2022 8:40 AM EDT documented in this encounter Results * Scan Doc: ECG (09/26/2022 8:40 AM EDT) Historical Provider MD FLEMING MGR SCAN EX T ORDR/RSLT documented in this encounter Visit Diagnoses Not on filedocumented in this encounter Care Teams Solar Sales Associate Relationship Specialty Start Date End Date Polo Pearce PA [address] [place] [address] PCP - General Internal Medicine 06/09/21 documented as of this encounter
--- OUTSIDE RECORDS SUMMARY | 2023-10-22 00:43 | XMS_ITS | Encounter Summary ---
[place] [address] Care Team Providers Care Numerical Control Drill Press Operator Name Role Phone Polo Pearce Primary Care Provider [phone] Encounter Details Date Type Department Care Team [...] Encounters Date Type Department Care Team (Late Contact Info) Description 10/26/2023 4:00 PM EDT Office Visit Cardiology at [address] [phone] Jaspreet Kinsey MD [facility] [address] 10/28/2023 9:00 AM EDT Office [place] [address] 10/29/2023 10:00 AM EDT Clinical [place] [address] 10/29/2023 10:15 AM EDT Procedure [place] [address] 11/01/2023 5:00 PM EDT Office Visit Gastroenterology at [place] [phone] Selene Browning, PhD [facility] [place] [address] 11/22/2023 4:40 PM EDT Office Visit Cardiology at [place] [phone] Porsha Mcdaniels MD [facility] [place] [address] 12/13/2023 10:00 AM EDT Clinical [place] [address] Lucero Romero, [facility] [facility] [place] [address] documented as of this encounter Visit Diagnoses Not on filedocumented in this encounter Care Teams Numerical Control Drill Press Operator Relationship Specialty Start Date End Date Polo Pearce PA [address] [place] [address] PCP - General Internal Medicine 06/09/21 documented as of this encounter
--- OUTSIDE RECORDS SUMMARY | 2023-10-22 00:43 | XMS_ITS | Encounter Summary ---
Author Organization [facility] Address [facility] [place] [address] Care Team Providers Care Ball Sorter Name Role Phone Polo Pearce Primary Care Provider [phone] Reason for Visit * Reason Comments Congestive Heart Failure HFpEF Atrial Fibrillation Encounter Details Date Type Department Care Team (Late st Contact Info) Description 11/17/2022 9:00 AM EDT Office Visit Cardiology at [address] [phone] Jaspreet Kinsey MD [facility] [place] [place] [address] Paroxysmal atrial fibrillation; Heart failure with preserved [...] In the interim, she was seen at [facility] vascular clinic and whilst having an episode [...] 30 DAYS fluticasone propionate (FLONASE) 50 mcg/actuation Barry, Suspension 1 spray, Each Nare, DAILY gabapentin [...] upper lobe. Started on eliquis 08/2022 TTE ([facility]): normal bi-v s/f. No significant VHD (HFpEF) heart failure with preserved ejection fraction 05/2021: subacute, presented to [facility] with RUQ pain, weight gain, and [...] PM EDT Office Visit Cardiology at [address] [phone] Jaspreet Kinsey MD [facility] [place] [address] 10/28/2023 9:00 AM EDT Office [place] [address] 10/29/2023 10:00 AM EDT Clinical [place] [address] 10/29/2023 10:15 AM EDT Procedure [place] [address] 11/01/2023 5:00 PM EDT Office [place] [phone] Selene Browning, PhD [facility] [place] [address] 11/22/2023 4:40 PM EDT Office Visit Cardiology at [address] [phone] Porsha Mcdaniels MD [facility] [place] [address] 12/13/2023 10:00 AM EDT Clinical [place] [phone] [facility] [place] [address] documented as of this encounter Visit Diagnoses Diagnosis Paroxysmal atrial fibrillation Atrial fibrillation Heart failure with preserved ejection fraction, unspecified HF chronicity Pulmonary embolism without acute cor pulmonale, unspecified chronicity, unspecified pulmonary embolism type Chronic heart failure with preserved ejection fraction documented in this encounter Care Teams Ball Sorter Relationship Specialty Start Date End Date Polo Pearce PA [address] [place] [address] PCP - General Internal Medicine 06/09/21 documented as of this encounter
--- OUTSIDE RECORDS SUMMARY | 2023-10-22 00:43 | XMS_ITS | Encounter Summary ---
Author Organization [facility] Address [facility] [place] [address] Care Team Providers Care Paralegal Instructor Name Role Phone Polo Pearce Primary Care Provider [phone] Encounter Details Date Type Department Care Team (Late st Contact Info) Description 12/22/2022 Telephone Cardiology at [address] [place] [address] Jaspreet Kinsey MD [facility] [place] [address] Social History Tobacco Use Types Packs/Day Years [...] PM EDT Office Visit Cardiology at [address] [place] [phone] Jaspreet Kinsey MD [facility] [place] [address] 10/28/2023 9:00 AM EDT Office [place] [address] 10/29/2023 10:00 AM EDT Clinical [place] [address] 10/29/2023 10:15 AM EDT Procedure [place] [address] 11/01/2023 5:00 PM EDT Office Visit [place] [phone] Selene Browning, PhD [facility] [place] [address] 11/22/2023 4:40 PM EDT Office Visit Cardiology at [address] [phone] Porsha Mcdaniels MD [facility] [place] [address] 12/13/2023 10:00 AM EDT Clinical Support [place] [phone] [facility] [place] [address] documented as of this encounter Visit Diagnoses Not on filedocumented in this encounter Care Teams Paralegal Instructor Relationship Specialty Start Date End Date Polo Pearce PA Sb [address]LLANO [address] [place] [address] PCP - General Internal Medicine 06/09/21 documented as of this encounter
--- OUTSIDE RECORDS SUMMARY | 2023-10-22 00:43 | XMS_ITS | Encounter Summary ---
Author Organization [place] [address] Care Team Providers Care Machine Heel Seat Fitter Name Role Phone Polo Pearce Primary Care Provider [phone] Reason for Visit * Reason Onset Date Comments Chest Pain 07/27/2022 Shortness of Breath 07/27/2022 Fatigue 07/27/2022 Encounter Details Date Type Department Care Team (Late st Contact Info) Description 07/27/2022 Telephone Cardiology at [address] [address] Japsreet Kinsey MD [facility] [place] [address] Chest Pain; Shortness of Breath; Fatigue Social [...] EDT Florencia has been admitted inpatient at [facility]. * Telephone Encounter - Aide Glass - 07/27/2022 3:35 PM EDT Patient called and said she is now in [facility]. She said they did a CT scan and found blood clots on her lungs. She also has a fluid buildup. Please call her @ [phone] * Telephone Encounter - Nilda Mayes RN [...] for assessment. Plan: Florencia will go to [facility] for evaluation. documented in this encounter Plan of Treatment Upcoming Encounters Date Type Department Care Team (Late st Contact Info) Description 10/26/2023 4:00 PM EDT Office Visit Cardiology at [address] [address] Jaspreet Kinsey MD [facility] [place] [address] 10/28/2023 9:00 AM EDT Office [place] [address] 10/29/2023 10:00 AM EDT Clinical [place] [address] 10/29/2023 10:15 AM EDT Procedure [place] [address] 11/01/2023 5:00 PM EDT Office [place] [address] Selene Browning, PhD [facility] [address] 11/22/2023 4:40 PM EDT Office Visit Cardiology at [place] [phone] Porsha Mcdaniels MD [facility] [place] [place] [address] 12/13/2023 10:00 AM EDT Clinical Support Gastroenterology at [place] [phone] [facility] [place] [address] documented as of this encounter Visit Diagnoses Not on filedocumented in this encounter Care Teams Machine Heel Seat Fitter Relationship Specialty Start Date End Date Polo Pearce PA [address] [place] [address] PCP - General Internal Medicine 06/09/21 documented as of this encounter
--- OUTSIDE RECORDS SUMMARY | 2023-10-22 00:43 | XMS_ITS | Encounter Summary ---
Author Organization [facility] Address [facility] [place] [address] Care Team Providers Care Securities Settlement Processor Name Role Phone Polo Pearce Primary Care Provider [phone] Encounter Details Date Type Department Care Team (Late st Contact Info) Description 07/07/2022 Telephone Cardiology at [address] [place] [address] Jaspreet Kinsey MD [facility] [place] [address] Social History Tobacco Use Types Packs/Day Years [...] PM EDT Office Visit Cardiology at [address] [address] Jaspreet Kinsey MD [facility] [place] [address] 10/28/2023 9:00 AM EDT Office Visit [place] [address] 10/29/2023 10:00 AM EDT Clinical Support [place] [address] 10/29/2023 10:15 AM EDT Procedure visit [place] [address] 11/01/2023 5:00 PM EDT Office [place] [address] Selene Browning, PhD [facility] [place] [address] 11/22/2023 4:40 PM EDT Office Visit Cardiology at [address] [phone] Porsha Mcdaniels MD [facility] [place] [address] 12/13/2023 10:00 AM EDT Clinical Support [place] [phone] [facility] [place] [address] documented as of this encounter Visit Diagnoses Not on filedocumented in this encounter Care Teams Securities Settlement Processor Relationship Specialty Start Date End Date Polo Pearce PA [address] [place] [address] PCP - General Internal Medicine 06/09/21 documented as of this encounter
--- OUTSIDE RECORDS SUMMARY | 2023-10-22 00:43 | XMS_ITS | Encounter Summary ---
Author Organization [facility] Address [facility] [place] [address] Care Team Providers Care Beekeeper Farmer Name Role Phone Polo Pearce Primary Care Provider [phone] Encounter Details Date Type Department Care Team (Late st Contact Info) Description 08/31/2022 Telephone Cardiology at [address] [address] Carrol La PA [facility] [place] [address] Social History Tobacco Use Types Packs/Day Years [...] PM Referring Provider: Dr. Evans Patient Location: [facility] Brief History Lyubov Roque is a 52 y.o female with PMH of HFpEF, SVT, PE on Eliquis, HLD who presented to the OSH with nausea, diffuse abdominal pain. Developed chest pain that OSH provider reports was LUQ pain under left breast. [place] like a sharp, intermittent squeeze. Patient is [...] was LUQ abdominal pain under left breast. [place] like a sharp, intermittent squeeze that resolved [...] 300's range on prior lab checks in [facility] system. ACS seems unlikely at this time based on my discussion with Dr. Evans as her symptoms seem GI in origin. This may represent a type II NSTEMI in setting of CATIE and acute GI illness. I recommended close follow up with Dr. Kinsey, primary wrapper caser who can consider stress testing. In addition, [...] in management. Carrol La PA-C Access Pager [phone] 08/31/2022 documented in this encounter Plan of Treatment Upcoming Encounters Date Type Department Care Team (Late st Contact Info) Description 10/26/2023 4:00 PM EDT Office Visit Cardiology at [address] [place] [address] Jaspreet Kinsey MD [facility] [place] [address] 10/28/2023 9:00 AM EDT Office [place] [address] 10/29/2023 10:00 AM EDT Clinical [place] [address] 10/29/2023 10:15 AM EDT Procedure [place] [address] 11/01/2023 5:00 PM EDT Office [place] [phone] Selene Browning, PhD [facility] [place] [address] 11/22/2023 4:40 PM EDT Office Visit Cardiology at [address] [address] Porsha Mcdaniels MD [facility] [place] [address] 12/13/2023 10:00 AM EDT Clinical [place] [phone] Lucero Romero, ALVA [facility] [place] [address] documented as of this encounter Visit Diagnoses Not on filedocumented in this encounter Care Teams Beekeeper Farmer Relationship Specialty Start Date End Date Polo Pearce PA [address] [place] [address] PCP - General Internal Medicine 06/09/21 documented as of this encounter
--- OUTSIDE RECORDS SUMMARY | 2023-10-22 00:43 | XMS_ITS | Encounter Summary ---
Author Organization [facility] Address [facility] [place] [address] Care Team Providers Care Unix Consultant Name Role Phone Polo Pearce Primary Care Provider [phone] Reason for Visit * Consultation (Routine) - Closed Specialty Diagnoses / Procedures Referred By Jayant harris Referred To Contact Vascular Surgery Diagnoses Pulmonary embolism, unspecified chronicity, unspecified pulmonary embolism type, unspecified whether acute cor pulmonale present ROUTINE, SALVATORE, BLE DVT Vascular medicine PE clinic: seemingly unprovoked small PE. review consideration of hypercoagulability testing Jaspreet Kinsey MD [facility] [place] [address] Elvin Maya MD [facility] [place] [address] Referral ID Status Reason Start Date Expiration Date V isits Requested Visits Authorized [id number] Closed Consult, Test & Treat 07/30/2022 07/30/2023 1 1 Encounter Details Date Type Department Care Team (Late st Contact Info) Description 10/20/2022 9:00 AM EDT Office Visit [place] [address] Umberto Abbott MD [facility] [address] [place] [id number] Pulmonary embolism, unspecified chronicity, unspecified pulmonary embolism [...] note were not included. [facility] [place] [id number] VASCULAR MEDICINE CLINIC NOTE PRIMARY CARE PROVIDER: [...] She was seen recently by her primary Yarn Dry Room Worker, Dr. Kinsey, and he had uptitrated her [...] Vascular Clinic as needed. Sindhu Santo MD Pot Runner, PGY5 #[id number] Cardiovascular Medicine Attending I have interviewed and [...] PM EDT Office Visit Cardiology at [address] [place] [address] Jaspreet Kinsey MD [facility] [place] [address] 10/28/2023 9:00 AM EDT Office [place] [address] 10/29/2023 10:00 AM EDT Clinical [place] [address] 10/29/2023 10:15 AM EDT Procedure [place] [address] 11/01/2023 5:00 PM EDT Office Visit [place] [address] Selene Browning, PhD [facility] [address] 11/22/2023 4:40 PM EDT Office Visit Cardiology at [address] [address] Porsha Mcdaniels MD [facility] [place] [address] 12/13/2023 10:00 AM EDT Clinical Support [place] [address] Lucero Romero, RD [facility] [place] [address] documented as of this encounter Visit Diagnoses Diagnosis Pulmonary embolism, unspecified chronicity, unspecified pulmonary embolism type, unspecified whether acute cor pulmonale present- Primary PAF (paroxysmal atrial fibrillation) Atrial fibrillation documented in this encounter Care Teams Unix Consultant Relationship Specialty Start Date End Date Polo Pearce PA [facility] [address] [place] [address] PCP - General Internal Medicine 06/09/21 documented as of this encounter
--- OUTSIDE RECORDS SUMMARY | 2023-10-22 00:43 | XMS_ITS | Encounter Summary ---
[place] [address] Care Team Providers Care Marble Installation Helper Name Role Phone Polo Pearce Primary Care Provider [phone] Reason for Referral * Diagnostic Test (Routine) - Closed Specialty Diagnoses / Procedures Referred By Jayant harris Referred To Contact Diagnoses Pulmonary embolism, unspecified chronicity, unspecified pulmonary embolism type, unspecified whether acute cor pulmonale present Procedures Duplex Study for DVT, Bilat legs Mamie Marx APRN [facility] [place] [address] [facility] [address] [address] Referral ID Status Reason Start Date Expiration Date V isits Requested Visits Authorized [id number] Closed Specialty Service Requested 07/31/2022 07/31/2023 1 1 Encounter Details Date Type Department Care Team (Late st Contact Info) Description 07/31/2022 Orders [place] [address] Mamie Marx APRN [facility] [place] [address] Pulmonary embolism, unspecified chronicity, unspecified pulmonary embolism [...] PM EDT Office Visit Cardiology at [address] [place] [address] Jaspreet Kinsey MD [facility] [place] [place] [address] 10/28/2023 9:00 AM EDT Office [place] [address] 10/29/2023 10:00 AM EDT Clinical [place] [address] 10/29/2023 10:15 AM EDT Procedure [place] [address] 11/01/2023 5:00 PM EDT Office [place] [phone] Selene Browning, PhD [facility] [place] [address] 11/22/2023 4:40 PM EDT Office Visit Cardiology at [address] [address] Porsha Mcdaniels MD [facility] [place] [address] 12/13/2023 10:00 AM EDT Clinical [place] [address] [facility] [place] [address] documented as of this encounter Results * Duplex Study for DVT, Bilat legs (10/20/2022 8:06 AM EDT) VB Text Report Department: Vascular Surgery Lab Patient: [id number] (LOIDA ROQUE) CPT: 43563 Referring Physician: MAMIE MARX ?? Phone: Indications: [...] present documented in this encounter Care Teams Marble Installation Helper Relationship Specialty Start Date End Date Polo Pearce PA [address] [place] [address] PCP - General Internal Medicine 06/09/21 documented as of this encounter
--- OUTSIDE RECORDS SUMMARY | 2023-10-22 00:43 | XMS_ITS | Encounter Summary ---
Author Organization [facility] Address [facility] [place] [address] Care Team Providers Care Antenna Specialist Name Role Phone Polo Pearce Primary Care Provider [phone] Encounter Details Date Type Department Care Team (Late st Contact Info) Description 06/30/2022 Orders Only Cardiology at [address] [address] Jaspreet Kinsey MD [facility] [place] [place] [address] Chest pain, unspecified type Social History Tobacco [...] PM EDT Office Visit Cardiology at [address] [address] Jaspreet Kinsey MD [facility] [place] [place] [address] 10/28/2023 9:00 AM EDT Office [place] [address] 10/29/2023 10:00 AM EDT Clinical [place] [address] 10/29/2023 10:15 AM EDT Procedure [place] [address] 11/01/2023 5:00 PM EDT Office Visit Gastroenterology at [place] [phone] Selene Browning, PhD [facility] [place] [address] 11/22/2023 4:40 PM EDT Office Visit Cardiology at [place] [phone] Porsha Mcdaniels MD [facility] [place] [address] 12/13/2023 10:00 AM EDT Clinical [place] [address] Lucero Romero, ALVA [facility] [place] [address] documented as of this encounter Visit Diagnoses Diagnosis Chest pain, unspecified type documented in this encounter Care Teams Antenna Specialist Relationship Specialty Start Date End Date Polo Pearce PA [address] [place] [address] PCP - General Internal Medicine 06/09/21 documented as of this encounter
--- OUTSIDE RECORDS SUMMARY | 2023-10-22 00:43 | XMS_ITS | Encounter Summary ---
Author Organization [facility] Address [facility] [address] Care Team Providers Care Event Representative Name Role Phone Polo Pearce Primary Care Provider [phone] Reason for Visit * Reason Comments Medication Refill Encounter Details Date Type Department Care Team (Late st Contact Info) Description 07/24/2022 Refill Cardiology at [address] [address] Deja Zaidi PA [facility] [place] [address] Medication Refill Social History Tobacco Use Types [...] PM EDT Office Visit Cardiology at [address] [address] Jaspreet Kinsey MD [facility] [place] [address] 10/28/2023 9:00 AM EDT Office [place] [address] 10/29/2023 10:00 AM EDT Clinical [place] [address] 10/29/2023 10:15 AM EDT Procedure [place] [address] 11/01/2023 5:00 PM EDT Office Visit Gastroenterology at [place] [phone] Selene Browning, PhD [facility] [place] [address] 11/22/2023 4:40 PM EDT Office Visit Cardiology at [address] [phone] Porsha Mcdaniels MD [facility] [place] [address] 12/13/2023 10:00 AM EDT Clinical [place] [address] Lucero Romero, ALVA [facility] [place] [address] documented as of this encounter Visit Diagnoses Diagnosis Chronic heart failure with preserved ejection fraction documented in this encounter Care Teams Event Representative Relationship Specialty Start Date End Date Polo Pearce PA [address] [place] [address] PCP - General Internal Medicine 06/09/21 documented as of this encounter
--- OUTSIDE RECORDS SUMMARY | 2023-10-22 00:43 | XMS_ITS | Encounter Summary ---
[place] [address] Care Team Providers Care Homebound Teacher Name Role Phone Polo Pearce Primary Care Provider [phone] Reason for Visit * Auth/Cert (Routine) Specialty Diagnoses / Procedures Referred By Jayant t Referred To Contact Diagnoses NSTEMI (non-ST elevated myocardial infarction) NSTEMI NSTEMI (non-ST elevated myocardial infarction) [I21.4] [I21.4] NSTEMI (non-ST elevated myocardial infarction) Procedures EMERGENCY IPI Itz Bhardwaj MD [facility] [place] [address] [facility] Referral ID Status Reason Start Date Expiration Date Visits Re quested Visits Authorized [id number] 1 1 Encounter Details Date Type Department Care Team (Latest Contact Info) Description 02/08/2023 6:34 PM EST - 02/11/2023 3:45 PM EST Hospital Encounter Heart and Vascular Unit Level 4 [place] [id number] Bobby Edmonds MD [facility] [place] [address] Itz Bhardwaj MD [facility] [place] [address] Chest pain, unspecified type; NSTEMI (non-ST elevated myocardial infarction) Discharge Disposition: Home Social History Tobacco Use Types Packs/Day Years Used Date Smoking Tobacco: Never Smokeless Tobacco: Never Alcohol Use Standard Drinks/Week Comments Never 0 (1 standard drink = 0.6 oz pur e alcohol) [facility] Utilities Answer Date Recorded [...] Loida Madrigal Patient Age: 52 y.o. Language: Polish Race: White Ethnicity: Not nor Admit date: 02/08/2023 Discharge date and time: 02/11/2023 Attending Physician: Itz Bhardwaj MD Discharge Physician: Itz Bhardwaj MD PCP: JOCY Franco [phone]) ID: Loida Madrigal is a 52 y.o. female w/ PMH of NSTEMI (2019, no coronary disease identified),HTN, HLD, HFpEF, PE, AVNRT, and Afib on eliqu, admitted to [facility] on 02/08/2023 for a total of 3 [...] elevated troponin and EKG changes, cardiology at [facility] was contacted for transfer. She was loaded [...] unchanged from prior EKGs. Her troponins at [facility] are flat 23 > 27. Additionally, she had a CT coronary in 09/2022 which showed non-obstructive coronary arteries. Her TTE was reassuring with EF 59% with concern for segmental wall motion abnormalities that were not present prior. Her chest pain is likely not related to ACS. She did continue to have chest pain throughoutadmission that responded to nitro. Her WIRE PULLER amlodipine was discontinued due to hypotension and [...] that was done by the on-call overnight experimental assembler, there is no significant change in biventricular [...] days. Refills: 0 fluticasone propionate 50 mcg/actuation [place], Suspension Commonly known as: Flonase 1 [...] 11:20 AM Jed Tovar MD Cardiology at [facility] Arrive at: [facility] [employer] [facility] Area [phone] 03/04/2023 4:00 PM Jaspreet Kinsey MD Cardiology at [place] Arrive at: [facility] [address] [phone] Provider Contact Information: JOCY Franco [address] / [facility] [address] Discharge References/Attachments: Discharge References/Attachments None Addendum: The [...] as needed. fluticasone propionate (FLONASE) 50 mcg/actuation [place], Suspension 1 spray by Each Nare [...] that was done by the on-call overnight experimental assembler, there is no significant change in biventricular function. Assessment: Loida Madrigal is a 52 y.o. female with a PMHx NSTEMI (2019, no coronary disease identified), HTN, HLD, HFpEF, and Afib on [facility] who initially presented to [facility] [...] Heidy Walker DO Internal Medicine PGY-1 Pager [phone], M1-S2 Service Associated attestation - Itz Bhardwaj [...] that was done by the on-call overnight experimental assembler, there is no significant change in biventricular [...] Heidy Walker DO Internal Medicine PGY-1 Pager [phone], M1-S2 Service documented in this encounter H&P Notes * German Bianchi MD - 02/08/2023 10:05 PM EST Images from the original note were not included. Cardiology Admission History and Physical Patient Name: Loida Madrigal Service: M1-S1 Responsible Attending: Bobby Edmonds MD PCP: JOCY Franco PCP phone #: [phone] ID/Chief Complaint: Loida Madrigal is a 52 y.o. female with a PMHx NSTEMI (2019, no coronary disease identified), HTN, HLD, HFpEF, PE, AVNRT, and Afib on eliquis who initially presented to [facility] with chest pain and shortness of breath, now transferred to [facility] for management of presumed NSTEMI. History of [...] elevated troponin and EKG changes, cardiology at [facility] was contacted for transfer. She was loaded [...] as needed. fluticasone propionate (FLONASE) 50 mcg/actuation [place], Suspension 1 spray by Each Nare [...] Mother: history of stroke. Father: history of MO in father. Siblings: none. Social History: Tobacco: [...] and shortness of breath, now transferred to [facility] for management of presumed NSTEMI. Mrs. Madrigal [...] Bianchi MD, PGY-2 Cardiology M1-S2, Team Pager [phone] 02/08/2023 Associated attestation - Itz Bhardwaj MD [...] fairly recent. She has ruled out for MO with low-level not increasing troponins and her [...] COVID test: Lab Results Component Value Date [id number] Not Detected 06/13/2021 Present on Admission: NSTEMI (non-ST elevated myocardial infarction) Hospitalizations Within the Past 30 Days: no previous admission in last 30 days Patient receiving hospital care under Inpatient status. Admission order reviewed. Health/Prescription Coverage: Primary Insurance: [employer] [facility] Payor: [employer] [facility] [place] / Plan: [facility] [place] EXCHANGE / Product Type: *No Product type* / Secondary Insurance: N/A ; Prescription Coverage: Yes Preferred Pharmacy: [id number] - [place], [place] - [address] [facility] [address] [facility] [address] [facility] - [place], [place] - [address] [facility] [address] [facility] [address] [facility] [address] Advance Care Planning: Attempt Cardiopulmonary Resuscitation - Inpatient <no information> -Advanced Directive: No, need to discuss (Referral sent to [facility] - [employer]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 Current Living Arrangements: home/apartment/condo. Accessibility Concerns:1.5 story home (steps w/ railings). 5-6 [place]TER[place] home. No concerns. Current DME: respiratory supplies ([employer] ([employer])) [address] [facility] [id number] Social & Family Supports: All names listed [...] olivier Tasha, when medically ready. Registered Nurse Voip Network Technician / Forklift Technician will continue to follow patient???s progress [...] Office Visit Cardiology at [address] [phone] Jaspreet Kinsey MD [facility] [place] [address] 10/28/2023 9:00 AM EDT Office Visit [place] [address] 10/29/2023 10:00 AM EDT Clinical Support [place] [address] 10/29/2023 10:15 AM EDT Procedure visit [place] [address] 11/01/2023 5:00 PM EDT Office [place] [phone] Selene Browning, PhD [facility] [place] [address] 11/22/2023 4:40 PM EDT Office Visit Cardiology at [address] [phone] Porsha Mcdaniels MD [facility] [place] [address] 12/13/2023 10:00 AM EDT Clinical [place] [address] [facility] [place] [address] documented as of this encounter Procedures Procedure [...] multiple bacterial species suggesting mucosal contamination. (A) [facility] Urine 02/11/2023 9:30 AM EST 02/11/2023 1:19 PM EST Narrative Resulting Agency Comment Spec In Lab Heidy Walker MD MICROBIOLOGY - GENER AL ORDERABLES Performing Organization Address [facility] Co de Phone Number [facility] [place] [address] * (ABNORMAL) Urinalysis Microscopic Exam (02/11/2023 9:30 AM EST) Pathologist [facility] RBC, Urine 1 0 - 4 /HPF [facility] WBC, Urine 29(H) 0 - 5 /HPF [facility] Bacteria, Urine Few(A) None /HPF [facility] Squamous Epithelial Cells Raw Data, Urine 1 <=4 /HPF [facility] Transitional Epithelial Cells, Urine 2(H) <=1 /HPF [facility] Hyaline Casts, Urine 2 0 - 2 /LPF [facility] Calcium Oxalate Crystal, Urine Moderate( A) None /HPF [facility] Urine Urine / Unknown 02/11/2023 9 :30 AM EST 02/11/2023 10:33 AM EST Narrative Resulting Agency Comment Spec In Lab Heidy Walker MD URINE ORDERABLES Performing Organization Address [facility] Co de Phone Number [facility] [place] [address] * (ABNORMAL) Urinalysis with reflex Culture (02/11/2023 9:30 AM EST) Glucose, Urine Dipstick 500(Critical ) Negative mg/dL [facility] Comment: Urinalysis result NOT critical without a combination of Glucose greater than or equal to 500 mg/dL AND Ketones greater than or equal to 80 mg/dL Protein, Urine Dipstick Negative Negative mg/dL [facility] Bilirubin, Urine Dipstick Negative Negative mg/dL [facility] Comment: Clinical correlation required for positive Urine Bilirubin results as false positive may occur with some drugs and drug related products. If a false positive is suspected a serum total bilirubin should be considered if clinically indicated. Urobilinogen, Urine Dipstick Normal Normal mg/dL [facility] pH, Urn (dipstick) 5.5 5.0 - 8.0 [facility] Blood, Urine Dipstick Negative Negative mg/dL [facility] Ketone, Urine Dipstick Trace(A) Negative mg/dL [facility] Nitrite, Urine Dipstick Negative Negative [facility] Leukocytes, Urine Dipstick Moderate(A) Negative mcL [facility] Appearance, Urine Dipstick Cloudy(A) Clear [facility] Specific [place] Urine Automated 1.029 1.005 - 1.030 [facility] Color, Urine Dipstick Dark Yellow Yellow [facility] Reflex to Culture Yes [facility] Urine Urine / Unknown 02/11/2023 9 :30 AM EST 02/11/2023 10:32 AM EST Narrative Resulting Agency Comment Spec In Lab Heidy Walker MD URINE ORDERABLES [facility] [place] [address] * EKG 12 Lead (02/11/2023 6:07 AM EST) Ventricular rate 47 BPM MUSE SYSTEM Atrial Rate 47 BPM MUSE SYSTEM P-R Interval 200 ms MUSE SYSTEM QRS Duration 88 ms MUSE SYSTEM Q-T Interval 522 ms MUSE SYSTEM QTC Calculated (Bezet) 461 ms MUSE SYSTEM Calculated P [place] 36 degrees MUSE SYSTEM Calculated R [place] 48 degrees MUSE SYSTEM Calculated T [place] 12 degrees MUSE SYSTEM INTERPRETATION Sinus bradycardia Possible Left atrial enlargement Possible Lateral infarct (cited on or before 08-FEB-2023) Long QT interval Abnormal ECG When compared with ECG of 10-FEB-2023 11:44, No significant change was found I personally reviewed the tracing and edited the fellows interpretation Confirmed by fellow MD Rosalinda, Alejandro ([id number]) on 02/11/2023 2:15:46 PM Confirmed by Kai Haider ([id number]) on 02/11/2023 4:16:20 PM MUSE SYSTEM 02/11/2023 6:07 AM EST 02/11/2023 4:16 PM EST Itz Bhardwaj MD ECG ORDERABLES MUSE SYSTEM * Differential, Automated (02/11/2023 3:41 AM EST) Neutrophil % 53.9 % [facility] Neutrophil Absolute 3.50 1.70 - 6.10 x10(3)/[facility] Lymph % 31.5 % [facility] Lymphocytes Abs 2.0 0.9 - 3.2 x10(3)/[facility] Monocyte % 8.9 % [facility] Monocyte Abs 0.6 0.3 - 0.9 x10(3)/[facility] Eos % 4.9 % [facility] Eosinophils Abs 0.3 0.0 - 0.4 x10(3)/[facility] Basophil % 0.6 % [facility] Baso Absolute 0.0 0.0 - 0.1 x10(3)/[facility] Immature Gran % 0.20 % [facility] Comment: Immature granulocytes(IG's)percentage and absolute count will include metamyelocytes, myelocytes, and promyelocytes. Blood smears from CBCs yielding IG's will be scanned manually for concordance. If this scan disagrees with the automated IG or if promyelocytes are noted, a manual differential will be performed. Immature Gran Absolute 0.01 0.00 - 0.04 x10(3)/[facility] Blood 02/11/2023 3:41 AM EST 02/11/2023 4:01 AM EST Narrative Resulting Agency Comment Spec In Lab German Bianchi MD HEMATOLOGY ORDERABL ES [facility] [place] [address] * Hemogram (02/11/2023 3:41 AM EST) White Blood Cell 6.5 4.0 - 9.5 x10(3)/[facility] Red Blood Cell 4.55 4.00 - 5.21 x10(6)/[facility] Hemoglobin 14.4 11.7 - 15.5 g/dL [facility] Hematocrit 42.9 35.7 - 45.8 % [facility] Mean Cell Volume 94.3 82.6 - 94.4 fL [facility] Mean Cell Hemoglobin 31.6 27.1 - 32.0 pg [facility] Mean Cell Hemoglobin Concentration 33.6 31.7 - 35.0 g/dL [facility] Platelet 240 145 - 357 x10(3)/[facility] RDW Standard Deviation 42.9 37.0 - 46.0 fL [facility] RDW coefficient of variation 12.4 11.5 - 14.1 % [facility] Mean Platelet Volume 11.0 7.6 - 12.9 fL [facility] NRBC% auto 0.0 % [facility] NRBC Absolute 0.000 0.000 - 0.000 x10(3)/[facility] Blood 02/11/2023 3:41 AM EST 02/11/2023 4:01 AM EST Narrative Resulting Agency Comment Spec In Lab German Bianchi MD HEMATOLOGY ORDERABL ES Performing Organization Address City/[facility]/[place] Co de Phone Number [facility] [place] [address] * Magnesium (02/11/2023 3:41 AM EST) Magnesium 0.91 0.69 - 1.07 mmol/L [facility] Blood 02/11/2023 3:41 AM EST 02/11/2023 4:01 AM EST Narrative Resulting Agency Comment Spec In Lab Bobby Edmonds MD CHEMISTRY ORDERABLES Performing Organization Address City/[facility]/ZIP Co de Phone Number [facility] [place] [address] * (ABNORMAL) Basic Metabolic Panel (non-fasting) (02/11/2023 3:41 AM EST) Glucose 97 65 - 199 mg/dL [facility] Comment:Diabetes: >=200 mg/d L plus symptoms Blood Urea Nitrogen 23(H) 8 - 18 mg/dL [facility] Creatinine 1.07 0.70 - 1.20 mg/dL [facility] Sodium 138 135 - 145 mmol/L [facility] Potassium 4.0 3.5 - 5.0 mmol/L [facility] Comment: Please note: ??Patients with WBC >100,000 may have falsely elevated Potassium levels. ??For accurate Potassium quantification in these patients send serum separator tube (gold top) for subsequent determinations. ??Contact the Clinical Chemistry Laboratory if there are any questions. Chloride 109(H) 98 - 107 mmol/L [facility] Carbon Dioxide 17(L) 22 - 31 mmol/L [facility] Anion Gap 12 5 - 15 mmol/L [facility] Calcium 9.1 8.5 - 10.5 mg/dL [facility] Est Glomerular Filtration Rate 62 >=60 mL/min/1. 73 m?? [facility] Comment: This patient's estimated GFR was [...] In Lab Bobby Edmonds MD CHEMISTRY ORDERABLES [facility] [place] [address] * Differential, Automated (02/10/2023 3:46 AM EST) Neutrophil % 59.8 % [facility] Neutrophil Absolute 4.01 1.70 - 6.10 x10(3)/mcL [facility] Lymph % 27.5 % [facility] Lymphocytes Abs 1.8 0.9 - 3.2 x10(3)/[facility] Monocyte % 8.5 % [facility] Monocyte Abs 0.6 0.3 - 0.9 x10(3)/[facility] Eos % 3.7 % [facility] Eosinophils Abs 0.2 0.0 - 0.4 x10(3)/[facility] Basophil % 0.4 % [facility] Baso Absolute 0.0 0.0 - 0.1 x10(3)/[facility] Immature Gran % 0.10 % [facility] Comment: Immature granulocytes(IG's)percentage and absolute count will include metamyelocytes, myelocytes, and promyelocytes. Blood smears from CBCs yielding IG's will be scanned manually for concordance. If this scan disagrees with the automated IG or if promyelocytes are noted, a manual differential will be performed. Immature Gran Absolute 0.01 0.00 - 0.04 x10(3)/[facility] Blood 02/10/2023 3:46 AM EST 02/10/2023 4:12 AM EST Narrative Resulting Agency Comment Spec In Lab German Bianchi MD HEMATOLOGY ORDERABL ES Performing Organization Address City/State/[place] Co de Phone Number [facility] [place] [address] * Hemogram (02/10/2023 3:46 AM EST) White Blood Cell 6.7 4.0 - 9.5 x10(3)/[facility] Red Blood Cell 4.60 4.00 - 5.21 x10(6)/[facility] Hemoglobin 14.4 11.7 - 15.5 g/dL [facility] Hematocrit 42.2 35.7 - 45.8 % [facility] Mean Cell Volume 91.7 82.6 - 94.4 fL [facility] Mean Cell Hemoglobin 31.3 27.1 - 32.0 pg [facility] Mean Cell Hemoglobin Concentration 34.1 31.7 - 35.0 g/dL [facility] Platelet 246 145 - 357 x10(3)/[facility] RDW Standard Deviation 42.3 37.0 - 46.0 fL [facility] RDW coefficient of variation 12.6 11.5 - 14.1 % [facility] Mean Platelet Volume 11.1 7.6 - 12.9 fL [facility] NRBC% auto 0.0 % [facility] NRBC Absolute 0.000 0.000 - 0.000 x10(3)/[facility] Blood 02/10/2023 3:46 AM EST 02/10/2023 4:12 AM EST Narrative Resulting Agency Comment Spec In Lab German Bianchi MD HEMATOLOGY ORDERABL ES Performing Organization Address [facility] Number [facility] [place] [address] * Magnesium (02/10/2023 3:46 AM EST) Magnesium 1.01 0.69 - 1.07 mmol/L [facility] Blood 02/10/2023 3:46 AM EST 02/10/2023 4:12 AM EST Narrative Resulting Agency Comment Spec In Lab Bobby Edmonds MD CHEMISTRY ORDERABLES Performing Organization Address [facility] Phone Number [facility] [place] [address] * (ABNORMAL) Basic Metabolic Panel (non-fasting) (02/10/2023 3:46 AM EST) Glucose 103 65 - 199 mg/dL [facility] Comment:Diabetes: >=200 mg/d L plus symptoms Blood Urea Nitrogen 20(H) 8 - 18 mg/dL [facility] Creatinine 1.31(H) 0.70 - 1.20 mg/dL [facility] Sodium 141 135 - 145 mmol/L [facility] Potassium 3.4(L) 3.5 - 5.0 mmol/L [facility] Comment: Please note: ??Patients with WBC >100,000 may have falsely elevated Potassium levels. ??For accurate Potassium quantification in these patients send serum separator tube (gold top) for subsequent determinations. ??Contact the Clinical Chemistry Laboratory if there are any questions. Chloride 105 98 - 107 mmol/L [facility] Carbon Dioxide 23 22 - 31 mmol/L [facility] Anion Gap 13 5 - 15 mmol/L [facility] Calcium 9.2 8.5 - 10.5 mg/dL [facility] Est Glomerular Filtration Rate 49(L) >=60 mL/min/1. 73 m?? [facility] Comment: This patient's estimated GFR was [...] Edmonds MD CHEMISTRY ORDERABLES Performing Organization Address [facility]/[place] Co de Phone Number [facility] [place] [address] * Potassium (02/09/2023 2:46 PM EST) Potassium 4.0 3.5 - 5.0 mmol/L [facility] Comment: Please note: ??Patients with WBC [...] MD CHEMISTRY ORDERABL ES Performing Organization Address City/[facility]/ZIP Co de Phone Number [facility] [place] [address] * ECHO LMTD W CONTRAST W LMTD SPEC DOPP COLOR DOPP (02/09/2023 9:01 AM EST) Anatomical Region Laterality Modality Cardiac Other 02/09/2023 8:19 AM EST Narrative 02/09/2023 9:39 AM EST 1 [place] [address] ? Echocardiogram Report Name: LOIDA MADRIGAL ? Study Date: 02/09/2023 08:19 AMBP: 98/57 mmHg ? Patient Location: [id number] : 1970 ? Height: 163 cm ? Account: [id number] Age: 52 yrs ? Weight: 99 kg Gender: Female ?BSA: 2.0 m2 Ordering Physician: BOBBY EDMONDS Referring Physician: AJ HARTMAN Performed By: Aaron Herr RDCS Reason For Study: NSTEMI (non-ST elevated myocardial infarction) Interpreting Fellow: Ciro Lovell. Exam Location: [facility]. Interpretation Summary Left ventricular systolic function [...] that was done by the on-call overnight experimental assembler, there is no significant change in biventricular function. Procedure Limited - 93809. Image enhancement Definity was used for left [...] Note Manish Benitez MD - 02/09/2023 [address] [place] [address] Echocardiogram Report Name: LOIDA MADRIGAL Study Date: 308:19 AMBP: 98/57 mmHg Patient Location: [id number] : 1970 Height: 163 cm Account: [id number] Age: 52 yrs Weight: 99 kg Gender: Female BSA: 2.0 m2 Ordering Physician: BOBBY EDMONDS Referring Physician: AJ HARTMAN Performed By: Aaron Herr RDCS Reason For Study: NSTEMI (non-ST elevated myocardial infarction) Interpreting Fellow: Ciro Lovell. Exam Location: [facility]. Interpretation Summary Left ventricular systolic function [...] change in biventricular function. Procedure Limited - 17702. Image enhancement Definity was used for leftventricular [...] * (ABNORMAL) Troponin (02/09/2023 8:01 AM EST) [facility] Signature Troponin-T, High Sensitivity 27(H) <=14 ng/L [facility] Comment: This patient's troponin T concentration [...] troponin value can be found in the [facility] Test Catalog Troponin - [facility] Test Catalog Reference: Fourth [place] Definition of Myocardial Infarction. Journal of the [place] [employer] 2018;72:4913-4257 Blood 02/09/2023 8:01 AM EST 02/09/2023 8:06 AM EST Narrative Resulting Agency Comment Spec In Lab Itz Bhardwaj MD CHEMISTRY ORDERABL ES Performing Organization Address [facility]/[place] Co de Phone Number [facility] [place] [address] * CRP, acute inflammation (02/09/2023 3:55 AM EST) C-Reactive Protein <3.0 <=4.9 mg/L [facility] Blood Venous Draw / Unknown 02/09/2023 3:55 AM EST 02/09/2023 4:07 AM EST Narrative Resulting Agency Comment Spec In Lab Grady Metcalf MD CHEMISTRY ORDERABLES Performing Organization Address [facility] de Phone Number [facility] [place] [address] * Sedimentation rate (02/09/2023 3:55 AM EST) Sedimentation Rate Automated 15 2 - 39 mm/hr [facility] Comment: Effective February 15, 2019 new [...] ORDERABLE S Performing Organization Address [facility] de Phone Number [facility] [place] [address] * Differential, Automated (02/09/2023 3:55 AM EST) Neutrophil % 54.3 % [facility] Neutrophil Absolute 3.66 1.70 - 6.10 x10(3)/[facility] Lymph % 32.4 % [facility] Lymphocytes Abs 2.2 0.9 - 3.2 x10(3)/[facility] Monocyte % 8.3 % [facility] Monocyte Abs 0.6 0.3 - 0.9 x10(3)/[facility] Eos % 4.1 % [facility] Eosinophils Abs 0.3 0.0 - 0.4 x10(3)/[facility] Basophil % 0.6 % [facility] Baso Absolute 0.0 0.0 - 0.1 x10(3)/[facility] Immature Gran % 0.30 % [facility] Comment: Immature granulocytes(IG's)percentage and absolute count will include metamyelocytes, myelocytes, and promyelocytes. Blood smears from CBCs yielding IG's will be scanned manually for concordance. If this scan disagrees with the automated IG or if promyelocytes are noted, a manual differential will be performed. Immature Gran Absolute 0.02 0.00 - 0.04 x10(3)/[facility] Blood 02/09/2023 3:55 AM EST 02/09/2023 4:06 AM EST Narrative Resulting Agency Comment Spec In Lab German Bianchi MD HEMATOLOGY ORDERABL ES [facility] [place] [address] * Hemogram (02/09/2023 3:55 AM EST) White Blood Cell 6.8 4.0 - 9.5 x10(3)/[facility] Red Blood Cell 4.53 4.00 - 5.21 x10(6)/[facility] Hemoglobin 14.2 11.7 - 15.5 g/dL [facility] Hematocrit 41.2 35.7 - 45.8 % [facility] Mean Cell Volume 90.9 82.6 - 94.4 fL [facility] Mean Cell Hemoglobin 31.3 27.1 - 32.0 pg [facility] Mean Cell Hemoglobin Concentration 34.5 31.7 - 35.0 g/dL [facility] Platelet 237 145 - 357 x10(3)/mcL [facility] RDW Standard Deviation 41.1 37.0 - 46.0 fL [facility] RDW coefficient of variation 12.4 11.5 - 14.1 % [facility] Mean Platelet Volume 11.2 7.6 - 12.9 fL [facility] NRBC% auto 0.0 % [facility] NRBC Absolute 0.000 0.000 - 0.000 x10(3)/[facility] Blood 02/09/2023 3:55 AM EST 02/09/2023 4:06 AM EST Narrative Resulting Agency Comment Spec In Lab German Bianchi MD HEMATOLOGY ORDERABL ES [facility] [place] [address] * (ABNORMAL) Heparin (unfractionated) Level (02/09/2023 3:55 AM EST) UF Heparin 1.44(Crit ical) IU/mL [facility] Comment: Critical Result called by ?? [...] ORDERABLE S Performing Organization Address [facility] de Phone Number [facility] [place] [address] * Magnesium (02/09/2023 3:55 AM EST) Magnesium 1.04 0.69 - 1.07 mmol/L [facility] Blood 02/09/2023 3:55 AM EST 02/09/2023 4:06 AM EST Narrative Resulting Agency Comment Spec In Lab Bobby Edmonds MD CHEMISTRY ORDERABLES Performing Organization Address [facility] de Phone Number [facility] [place] [address] * (ABNORMAL) Basic Metabolic Panel (non-fasting) (02/09/2023 3:55 AM EST) Glucose 103 65 - 199 mg/dL [facility] Comment:Diabetes: >=200 mg/d L plus symptoms Blood Urea Nitrogen 19(H) 8 - 18 mg/dL [facility] Creatinine 1.13 0.70 - 1.20 mg/dL [facility] Sodium 142 135 - 145 mmol/L [facility] Comment:result rechecked- Potassium 2.9(Criti edy) 3.5 - 5.0 mmol/L [facility] Comment: Called by: DASHAWN, Read back by: Zoila Bhatt, Date/Time:02/09/23 04:43. Please note: ??Patients with WBC >100,000 may have falsely elevated Potassium levels. ??For accurate Potassium quantification in these patients send serum separator tube (gold top) for subsequent determinations. ??Contact the Clinical Chemistry Laboratory if there are any questions. Chloride 103 98 - 107 mmol/L [facility] Comment:result rechecked-[facility] Carbon Dioxide 24 22 - 31 mmol/L [facility] Comment:result rechecked-[facility] Anion Gap 15 5 - 15 mmol/L [facility] Calcium 9.4 8.5 - 10.5 mg/dL [facility] Est Glomerular Filtration Rate 58(L) >=60 mL/min/1. 73 m?? [facility] Comment: This patient's estimated GFR was [...] Edmonds MD CHEMISTRY ORDERABLES Performing Organization Address City/State/[facility] Co de Phone Number [facility] [place] [address] * Differential, Automated (02/08/2023 10:08 PM EST) Neutrophil % 55.7 % [facility] Neutrophil Absolute 4.29 1.70 - 6.10 x10(3)/[facility] Lymph % 33.0 % [facility] Lymphocytes Abs 2.5 0.9 - 3.2 x10(3)/[facility] Monocyte % 7.7 % [facility] Monocyte Abs 0.6 0.3 - 0.9 x10(3)/[facility] Eos % 2.9 % [facility] Eosinophils Abs 0.2 0.0 - 0.4 x10(3)/[facility] Basophil % 0.6 % [facility] Baso Absolute 0.0 0.0 - 0.1 x10(3)/[facility] Immature Gran % 0.10 % [facility] Comment: Immature granulocytes(IG's)percentage and absolute count will include metamyelocytes, myelocytes, and promyelocytes. Blood smears from CBCs yielding IG's will be scanned manually for concordance. If this scan disagrees with the automated IG or if promyelocytes are noted, a manual differential will be performed. Immature Gran Absolute 0.01 0.00 - 0.04 x10(3)/mcL [facility] Blood 02/08/2023 10:0 8 PM EST 02/08/2023 10:18 PM EST Narrative Resulting Agency Comment Spec In Lab German Bianchi MD HEMATOLOGY ORDERABL ES Performing Organization Address City/[facility] Co de Phone Number [facility] [place] [address] * (ABNORMAL) Hemogram (02/08/2023 10:08 PM EST) White Blood Cell 7.7 4.0 - 9.5 x10(3)/mc L [facility] Red Blood Cell 4.93 4.00 - 5.21 x10(6)/mc L [facility] Hemoglobin 15.6(H) 11.7 - 15.5 g/dL [facility] Hematocrit 46.9(H) 35.7 - 45.8 % [facility] Mean Cell Volume 95.1(H) 82.6 - 94.4 fL [facility] Mean Cell Hemoglobin 31.6 27.1 - 32.0 pg [facility] Mean Cell Hemoglobin Concentration 33.3 31.7 - 35.0 g/dL [facility] Platelet 201 145 - 357 x10(3)/mc L [facility] RDW Standard Deviation 45.0 37.0 - 46.0 fL [facility] RDW coefficient of variation 12.8 11.5 - 14.1 % [facility] Mean Platelet Volume 11.3 7.6 - 12.9 fL [facility] NRBC% auto 0.0 % [facility] NRBC Absolute 0.000 0.000 - 0.000 x10(3)/mc L [facility] Blood 02/08/2023 10:0 8 PM EST 02/08/2023 10:18 PM EST Narrative Resulting Agency Comment Spec In Lab German Bianchi MD HEMATOLOGY ORDERABL ES [facility] [place] [address] * (ABNORMAL) Troponin (02/08/2023 10:08 PM EST) Troponin-T, High Sensitivity 23(H) <=14 ng/L [facility] Comment: This patient's troponin T concentration [...] troponin value can be found in the [facility] Test Catalog Troponin - [facility] Test Catalog Reference: Fourth [place] Definition of Myocardial Infarction. Journal of the [place] [employer] 2018;72:0677-8304 Blood 02/08/2023 10:0 8 PM EST 02/08/2023 10:18 PM EST Narrative Resulting Agency Comment Spec In Lab Bobby Edmonds MD CHEMISTRY ORDERABLES [facility] [place] [address] * (ABNORMAL) Magnesium (02/08/2023 10:08 PM EST) Magnesium 1.15(H) 0.69 - 1.07 mmol/L [facility] Blood 02/08/2023 10:0 8 PM EST 02/08/2023 10:18 PM EST Narrative Resulting Agency Comment Spec In Lab Bobby Edmonds MD CHEMISTRY ORDERABLES [facility] [place] [address] * (ABNORMAL) Basic Metabolic Panel (non-fasting) (02/08/2023 10:08 PM EST) Glucose 106 65 - 199 mg/dL [facility] Comment:Diabetes: >=200 mg/d L plus symptoms Blood Urea Nitrogen 17 8 - 18 mg/dL [facility] Creatinine 0.96 0.70 - 1.20 mg/dL [facility] Sodium 151(H) 135 - 145 mmol/L [facility] Potassium 3.4(L) 3.5 - 5.0 mmol/L [facility] Comment: Please note: ??Patients with WBC >100,000 may have falsely elevated Potassium levels. ??For accurate Potassium quantification in these patients send serum separator tube (gold top) for subsequent determinations. ??Contact the Clinical Chemistry Laboratory if there are any questions. Chloride 91(L) 98 - 107 mmol/L [facility] Carbon Dioxide 12(L) 22 - 31 mmol/L [facility] Anion Gap 48(H) 5 - 15 mmol/L [facility] Calcium 8.9 8.5 - 10.5 mg/dL [facility] Est Glomerular Filtration Rate 71 >=60 mL/min/1. 73 m?? [facility] Comment: This patient's estimated GFR was [...] In Lab Bobby Edmonds MD CHEMISTRY ORDERABLES [facility] [place] [address] * (ABNORMAL) pro-Brain Natriuretic Peptide (02/08/2023 10:08 PM EST) NT-proBNP 850(H) <=124 pg/mL [facility] Blood 02/08/2023 10:0 8 PM EST 02/08/2023 10:18 PM EST Narrative Resulting Agency Comment Spec In Lab Bobby Edmonds MD CHEMISTRY ORDERABLES Performing Organization Address City/[facility] Co de Phone Number [facility] [place] [address] * TSH (02/08/2023 10:08 PM EST) Thyroid Stimulating Hormone 4.00 0.27 - 4.20 mcIU/mL [facility] Comment: Reference Interval (mcIU/mL): Females: ??First Trimester: 0.23-3.88 ??Second Trimester: 0.22-3.90 ??Third Trimester: 0.44-4.66 Blood 02/08/2023 10:0 8 PM EST 02/08/2023 10:18 PM EST Narrative Resulting Agency Comment Spec In Lab Bobby Edmonds MD CHEMISTRY ORDERABLES Performing Organization Address City/[facility]/ZIP Co de Phone Number [facility] [place] [address] * EKG 12 Lead (02/08/2023 6:38 PM EST) Ventricular rate 56 BPM MUSE SYSTEM Atrial Rate 56 BPM MUSE SYSTEM P-R Interval 182 ms MUSE SYSTEM QRS Duration 88 ms MUSE SYSTEM Q-T Interval 498 ms MUSE SYSTEM QTC Calculated (Bezet) 480 ms MUSE SYSTEM Calculated P [place] 27 degrees MUSE SYSTEM Calculated R [place] 40 degrees MUSE SYSTEM Calculated T [place] 15 degrees MUSE SYSTEM INTERPRETATION Sinus bradycardia [...] 02/09/2023 2:20 PM EST Unknown ECG ORDERABLES MUSE SYSTEM [...] Intravenous, 2 TIMES DAILY, First dose on 02/08/23 at 2215, Until Discontinued, Routine Given 02/11/2023 [...] 2103 (Given - Provider: Zoila Bhatt RN) 0900 (Given - Provider: Opal Traore RN)2110 (Given [...] Zoila Bhatt RN)936 (Given - Provider: Opal Traore RN)1402 (Given [...] obtained? Yes 1201 (Given - Provider: Opal rTaore RN)211 (Given - Provider: Zoila Bhatt RN) 09 (Given - Provider: Malia Mcintyre RN) rOPINIRole (Requip) tablet 2 mg 2 mg, Oral, USER SPECIFIED (2 times per day), First dose on Wed02/08/23 at 2200, Until Discontinued, Routine 1538 (Given - Provider: Opal Traore, ERWIN)210 (Given - Provider: Zoila Bhatt, ERWIN) 1607 (Given - Provider: Opal Traore RN)2110 (Given [...] Bhatt RN) 0859 (Given - Provider: Malia Mcintyre RN) spironolactone (Aldactone) tablet 25 mg 25 mg, Oral, DAILY, First dose on Wed02/09/23 at 1015, Until Discontinued, DO NOT SPLIT, CRUSH OR OPEN, Routine 0937 (Given - Provider: Opal Traore, RN) 0900 (Given - Provider: Opal Traore, ERWIN) 0858 (Given - Provider: Malia Mcintyre, ERWIN) topiramate (Topamax) tablet 100 mg 100 mg, Oral, NIGHTLY, First dose on Wed02/09/23 at 2100, Until Discontinued, Routine 2102 (Given - Provider: Zoila Bhatt, ERWIN) 2110 (Given - Provider: Zoila Bhatt RN) [...] dose, Starting on Wed02/08/23 at 2122, Until Aura 02/11/23 at 1807, for discomfort with PIV insertion, [...] 194 (Given - Provider: Zoila Bhatt RN) 0858 (Given - Provider: Opal Traore, ERWIN - [...] Intravenous, BOLUS PER HEPARIN PROTOCOL, Starting on 02/08/23 at 2210, Until Wed02/09/23 at 0957, Per [...] Routine documented in this encounter Care Teams Homebound Teacher Relationship Specialty Start Date End Date Polo Pearce PA [address] [place] [address] PCP - General Internal Medicine 06/09/21 documented as of this encounter
--- OUTSIDE RECORDS SUMMARY | 2023-10-22 00:43 | XMS_ITS | Encounter Summary ---
Author Organization [facility] Address [facility] [place] [address] Care Team Providers Care Trading Assistant Name Role Phone Polo Pearce Primary Care Provider [phone] Encounter Details Date Type Department Care Team (Late st Contact Info) Description 07/29/2022 9:50 PM EDT Ancillary Procedure [place] [address] Marcia Kamara MD [facility] [address] Social History Tobacco Use Types Packs/Day Years [...] PM EDT Office Visit Cardiology at [address] [phone] Jaspreet Kinsey MD [facility] [place] [address] 10/28/2023 9:00 AM EDT Office [place] [address] 10/29/2023 10:00 AM EDT Clinical [place] [address] 10/29/2023 10:15 AM EDT Procedure [place] [address] 11/01/2023 5:00 PM EDT Office [place] [address] Selene Browning, PhD [facility] [place] [address] 11/22/2023 4:40 PM EDT Office Visit Cardiology at [address] [phone] Porsha Mcdaniels MD [facility] [place] [address] 12/13/2023 10:00 AM EDT Clinical [place] [address] [facility] [place] [address] documented as of this encounter Procedures Procedure Name Priority Date/Time Associated Diagnosis Comments FILM LIBRARY STORAGE ONLY CT HEAD AND SPINE Routine 07/29/2022 9:45 PM EDT documented in this encounter Results * Film Library- Storage Only CT Head And Spine (07/29/2022 9:45 PM EDT) Narrative [facility] - 07/29/2022 9:45 PM EDT This exam is auto-finalizing. It's purpose is for storage only. Marcia Kamara MD IMG FILM LIBRARY ORD ERABLES [place], [place] documented in this encounter Visit Diagnoses Not on filedocumented in this encounter Care Teams Trading Assistant Relationship Specialty Start Date End Date Polo Pearce PA [address] [place] [address] PCP - General Internal Medicine 06/09/21 documented as of this encounter
--- OUTSIDE RECORDS SUMMARY | 2023-10-22 00:43 | XMS_ITS | Encounter Summary ---
Author Organization [facility] [place] [address] Care Team Providers Care Freight Flow Sales Leader Name Role Phone Polo Pearce Primary Care Provider [phone] Encounter Details Date Type Department Care Team (Late st Contact Info) Description 02/08/2023 External Results [place] [phone] Social History Tobacco Use Types Packs/Day Years [...] PM EDT Office Visit Cardiology at [address] [phone] Jaspreet Kinsey MD [facility] [place] [address] 10/28/2023 9:00 AM EDT Office Visit [place] [address] 10/29/2023 10:00 AM EDT Clinical Support [place] [address] 10/29/2023 10:15 AM EDT Procedure visit [place] [address] 11/01/2023 5:00 PM EDT Office [place] [phone] Selene Browning, PhD [facility] [place] [address] 11/22/2023 4:40 PM EDT Office Visit Cardiology at [address] [phone] Porsha Mcdaniels MD [facility] [place] [address] 12/13/2023 10:00 AM EDT Clinical [place] [address] [facility] [place] [address] documented as of this encounter Procedures Procedure Name Priority Date/Time Associated Diagnosis Comments ECG SCAN Routine 02/08/2023 3:27 PM EST documented in this encounter Results * Scan Doc: ECG (02/08/2023 3:27 PM EST) Historical Provider MEDIA MGR SCAN EX T ORDR/RSLT documented in this encounter Visit Diagnoses Not on filedocumented in this encounter Care Teams Freight Flow Sales Leader Relationship Specialty Start Date End Date Polo Pearce PA [address] [place] [address] PCP - General Internal Medicine 06/09/21 documented as of this encounter
--- OUTSIDE RECORDS SUMMARY | 2023-10-22 00:43 | XMS_ITS | Encounter Summary ---
Author Organization [facility] Address [facility] [place] [address] Care Team Providers Care Car Top Bolter Name Role Phone Polo Pearce Primary Care Provider [phone] Encounter Details Date Type Department Care Team (Late st Contact Info) Description 10/20/2022 Telephone Cardiology at [address] [place] [address] Jaspreet Kinsey MD [facility] [place] [address] Social History Tobacco Use Types Packs/Day Years [...] to update office that she was at [facility] this morning as a follow up [...] PM EDT Office Visit Cardiology at [address] [place] [address] Jaspreet Kinsey MD [facility] [place] [address] 10/28/2023 9:00 AM EDT Office [place] [address] 10/29/2023 10:00 AM EDT Clinical [place] [address] 10/29/2023 10:15 AM EDT Procedure [place] [address] 11/01/2023 5:00 PM EDT Office [place] [phone] Selene Browning, PhD [facility] [place] [address] 11/22/2023 4:40 PM EDT Office Visit Cardiology at [address] [phone] Porsha Mcdaniels MD [facility] [place] [address] 12/13/2023 10:00 AM EDT Clinical Support [place] [phone] [facility] [place] [address] documented as of this encounter Visit Diagnoses Not on filedocumented in this encounter Care Teams Car Top Bolter Relationship Specialty Start Date End Date Polo Pearce PA [address] [place] [address] PCP - General Internal Medicine 06/09/21 documented as of this encounter
--- OUTSIDE RECORDS SUMMARY | 2023-10-22 00:44 | XMS_ITS | Encounter Summary ---
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 Sandy Serna MD [facility] [place] [address] [facility] [address] [place] [phone] Referral ID Status Reason Start Date Expiration Date V isits Requested Visits Authorized [id number] Closed Consult, Test & Treat 06/14/2021 06/14/2022 1 1 Encounter Details Date Type Department Care Team (Late st Contact Info) Description 08/19/2021 3:00 PM EDT Office Visit Cardiology at [address] [phone] Umberto Joy PA [facility] [place] [address] AVNRT (AV makayla re-entry tachycardia) [...] EKGs(ST T-wave abnormalities) but clean cors at [facility] in 2019 and essentially normal echocardiogram(LVEF 61%, [...] anticipated in the future. She lives in [place], [place] and has seen Dr. Kinsey in [place]. Patient Active Problem List Diagnosis ??? 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 Obesity ??? Dyslipidemia ??? MARYLOU on CPAP ??? Restless leg syndrome ??? Insomnia ??? (HFpEF) heart failure with preserved ejection fraction Overview Note: 05/2021: subacute, presented to 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 Financial Resource Strain: [...] needed. ??? fluticasone propionate (FLONASE) 50 mcg/actuation [place], Suspension 1 spray by Each Nare [...] 12 lead EK08/19/2021 Sinus bradycardia @ 57; DC 176; QRS 84; QTc 443ms Zio: 06/09/2021 [...] atrial premature beat conducted with a prolonged DC interval, strongly suggestive of atrioventricular makayla reentrant [...] No significant change from prior in 08/2019. [facility]: 08/2019 Clean coronaries Assessment and Plan 51yo [...] history and diagnostic findings with emphasis on alarm security or surveillance monitor data. We also discussed risk/benefit of [...] PM EDT Office Visit Cardiology at [address] [place] [address] Jaspreet Kinsey MD [facility] [place] [address] 10/28/2023 9:00 AM EDT Office [place] [address] 10/29/2023 10:00 AM EDT Clinical [place] [address] 10/29/2023 10:15 AM EDT Procedure [place] [address] 11/01/2023 5:00 PM EDT Office Visit [place] [phone] Selene Browning, PhD [facility] [place] [address] 11/22/2023 4:40 PM EDT Office Visit Cardiology at [address] [phone] Porsha Mcdaniels MD [facility] [place] [address] 12/13/2023 10:00 AM EDT Clinical Support [place] [phone] [facility] [place] [address] documented as of this encounter Procedures Procedure [...] (Bezet) 443 ms MUSE SYSTEM Calculated P [place] 49 degrees MUSE SYSTEM Calculated R [place] 63 degrees MUSE SYSTEM Calculated T [place] -60 degrees MUSE SYSTEM INTERPRETATION Sinus bradycardia [...] dysrhythmias documented in this encounter Care Teams Market Research Specialist Relationship Specialty Start Date End Date Polo Pearce PA [address] [place] [address] PCP - General Internal Medicine 06/09/21 documented as of this encounter
--- OUTSIDE RECORDS SUMMARY | 2023-10-22 00:44 | XMS_ITS | Encounter Summary ---
Author Organization [facility] [place] [address] Care Team Providers Care Housemaid Name Role Phone Polo Pearce Primary Care Provider [phone] Encounter Details Date Type Department Care Team (Late st Contact Info) Description 12/31/2021 Orders Only Cardiology at [address] [phone] Umberto Joy PA [facility] [place] [address] SVT (supraventricular tachycardia) Social History Tobacco Use [...] PM EDT Office Visit Cardiology at [address] [phone] Jaspreet Kinsey MD [facility] [place] [address] 10/28/2023 9:00 AM EDT [place] [address] 10/29/2023 10:00 AM EDT Clinical [place] [address] 10/29/2023 10:15 AM EDT [place] [address] 11/01/2023 5:00 PM EDT Office [place] [phone] Selene Browning, PhD [facility] [place] [address] 11/22/2023 4:40 PM EDT Office Visit Cardiology at [address] [phone] Porsha Mcdaniels MD [facility] [place] [address] 12/13/2023 10:00 AM EDT Clinical [place] [phone] Lucero Romero, RD [facility] [place] [address] documented as of this encounter Procedures Procedure [...] Lovell. Interpretation Summary Limited echocardiogram performed by public opinion survey taker fellow. 1. LV appears globally hypokinetic. Visually estimated LVEF 40%. 2. RV is not well visualized, but appears mildly reduced in global systolic function. Recommend comprehensive echo. Procedure Note Willy Gómez MD - 01/05/2022 Echocardiogram Report Name: LOIDA ROQUE Study Date: 12/30/2021 11:29PM : 1970 Age: 51 yrs Gender: Female Interpreting Fellow: Ciro Lovell. Interpretation Summary Limited echocardiogram performed by public opinion survey taker fellow. 1. LV appears globally hypokinetic. Visually estimated LVEF 40%. 2. RV is not well visualized, but appears mildly reduced in globalsystolic function. Recommend comprehensive echo. Unknown ECHO ORDERABLES documented in this encounter Visit Diagnoses Diagnosis SVT (supraventricular tachycardia) Other specified cardiac dysrhythmias documented in this encounter Care Teams Housemaid Relationship Specialty Start Date End Date Polo Pearce PA [address] [address] PCP - General Internal Medicine 06/09/21 documented as of this encounter
--- OUTSIDE RECORDS SUMMARY | 2023-10-22 00:44 | XMS_ITS | Encounter Summary ---
Author Organization [facility] [place] [address] Care Team Providers Care Registration Clerk Name Role Phone Polo Pearce Primary Care Provider [phone] Encounter Details Date Type Department Care Team (Late st Contact Info) Description 12/30/2021 Telephone Cardiology at [address] [phone] Ciro Lovell MD [facility] [place] [address] Social History Tobacco Use Types Packs/Day Years [...] 51 year old female with mild PAH ([facility] 06/2021) without e/o parenchymal lung disease or L-sided dysfunction, ? Prior [place], C2 obesity, spastic lung disease and MARYLOU/HS [...] mild restriction, normal diffusion; no volumes done [facility] 2019 clean coronaries [facility] 06/2021 Hemodynamics: [...] PM EDT Office Visit Cardiology at [address] [phone] Jaspreet Kinsey MD [facility] [place] [address] 10/28/2023 9:00 AM EDT Office Visit [place] [address] 10/29/2023 10:00 AM EDT Clinical Support [place] [address] 10/29/2023 10:15 AM EDT Procedure visit [place] [address] 11/01/2023 5:00 PM EDT Office Visit [place] [phone] Selene Browning, PhD [facility] [place] [address] 11/22/2023 4:40 PM EDT Office Visit Cardiology at [address] [phone] Porsha Mcdaniels MD [facility] [place] [address] 12/13/2023 10:00 AM EDT Clinical Support [place] [address] Lucero Romero, [place] [place] [address] documented as of this encounter Visit Diagnoses Not on filedocumented in this encounter Care Teams Registration Clerk Relationship Specialty Start Date End Date Polo Pearce PA [address] [place] [address] PCP - General Internal Medicine 06/09/21 documented as of this encounter
--- OUTSIDE RECORDS SUMMARY | 2023-10-22 00:44 | XMS_ITS | Encounter Summary ---
Author Organization [facility] Address [facility] [place] [address] Care Team Providers Care Mental Health Aides Teacher Name Role Phone Polo Pearce Primary Care Provider [phone] Encounter Details Date Type Department Care Team (Late st Contact Info) Description 08/08/2021 Orders Only Cardiology at [address] [phone] Umberto Joy PA [facility] [place] [address] AVNRT (AV makayla re-entry tachycardia) (Primary Dx); [...] Office Visit Cardiology at [address] [phone] Jaspreet Kinsey MD [facility] [place] [address] 10/28/2023 9:00 AM EDT Office [place] [address] 10/29/2023 10:00 AM EDT Clinical [place] [address] 10/29/2023 10:15 AM EDT Procedure [place] [address] 11/01/2023 5:00 PM EDT Office Visit Gastroenterology at [place] [phone] Selene Browning, PhD [facility] [place] [address] 11/22/2023 4:40 PM EDT Office Visit Cardiology at [address] [phone] Porsha Mcdaniels MD [facility] [place] [address] 12/13/2023 10:00 AM EDT Clinical Support [place] [phone] [facility] [place] [address] documented as of this encounter Visit Diagnoses Diagnosis AVNRT (AV makayla re-entry tachycardia)- Primary Other specified cardiac dysrhythmias Heart failure with preserved ejection fraction, unspecified HF chronicity SVT (supraventricular tachycardia) Other specified cardiac dysrhythmias documented in this encounter Care Teams Mental Health Aides Teacher Relationship Specialty Start Date End Date Polo Pearce PA [address] [place] [address] PCP - General Internal Medicine 06/09/21 documented as of this encounter
--- OUTSIDE RECORDS SUMMARY | 2023-10-22 00:44 | XMS_ITS | Encounter Summary ---
Author Organization [facility] [place] [address] Care Team Providers Care Airplane Navigator Name Role Phone Polo Pearce Primary Care Provider [phone] Encounter Details Date Type Department Care Team (Late st Contact Info) Description 06/13/2021 [place] [address] Ralf Mejia MD [facility] [address] Social History Tobacco Use Types Packs/Day Years [...] Referring provider: Jasiel Caicedo MD Patient location: [facility] Past medical history: HLD HTN Asthma Depression ?Micrvascular disease SVT MARYLOU Diastolic heart failure History 51-year-old female with history as noted above who is just [place] [facility] [place] of [place]ina with discharge 06/08/2021. At that time she initially presented to [facility] where she was noted to have a troponin I of 406 which was flat at 411 on repeat and an elevated BNP. EKG showed nonspecific ST changes in the inferolateral leads. She was transferred [place] [facility] for [...] I and her recent work-up here at [facility] which did not include an ischemic evaluation but did include a transesophageal echocardiogramserial EKGs and serial negative troponins that further work-up at [facility] may be appropriate. Suspect that her [...] possible microvascular angina. Plan: -Continue management at [facility]. -Recommend stress test at [facility]. -Start metoprolol succinate 25 mg daily with follow-up with cardiology and up titration. -Continue medications as prescribed from her recent discharge. -Planning to get serial troponins and EKGs. If these are markedly changing can reassess and consider transfer to [facility] [place]. Ralf Mejia MD 06/13/2021 12:05 AM documented in this encounter Plan of Treatment Upcoming Encounters Date Type Department Care Team (Late st Contact Info) Description 10/26/2023 4:00 PM EDT Office Visit Cardiology at [address] [phone] Jaspreet Kinsey MD [facility] [place] [address] 10/28/2023 9:00 AM EDT Office [place] [address] 10/29/2023 10:00 AM EDT Clinical [place] [address] 10/29/2023 10:15 AM EDT Procedure [place] [address] 11/01/2023 5:00 PM EDT Office Visit [place] [phone] Selene Browning, PhD [facility] [place] [address] 11/22/2023 4:40 PM EDT Office Visit Cardiology at [address] [phone] Porsha Mcdaniels MD [facility] [place] [address] 12/13/2023 10:00 AM EDT Clinical Support [place] [phone] Lucero Romero, AL[facility] [place] [address] documented as of this encounter Visit Diagnoses Not on filedocumented in this encounter Care Teams Airplane Navigator Relationship Specialty Start Date End Date Polo Pearce PA [address] [place] [address] PCP - General Internal Medicine 06/09/21 documented as of this encounter
--- OUTSIDE RECORDS SUMMARY | 2023-10-22 00:44 | XMS_ITS | Encounter Summary ---
Author Organization [facility] [place] [address] Care Team Providers Care Production Lead Name Role Phone Polo Pearce Primary Care Provider [phone] Encounter Details Date Type Department Care Team (Late st Contact Info) Description 06/11/2021 Telephone Cardiology at [address] [address] Deja Zaidi PA [facility] [place] [address] Social History Tobacco Use Types Packs/Day Years [...] JOCY Hernandez 06/11/2021 JOCY Hernandez 06/11/2021 Pager [phone] documented in this encounter Plan of Treatment Upcoming Encounters Date Type Department Care Team (Late st Contact Info) Description 10/26/2023 4:00 PM EDT Office Visit Cardiology at [address] [phone] Jaspreet Kinsey MD [facility] [address] 10/28/2023 9:00 AM EDT Office Visit [place] [address] 10/29/2023 10:00 AM EDT Clinical Support [place] [address] 10/29/2023 10:15 AM EDT Procedure visit [place] [address] 11/01/2023 5:00 PM EDT Office [place] [phone] Selene Browning, PhD [facility] [place] [address] 11/22/2023 4:40 PM EDT Office Visit Cardiology at [address] [phone] Porsha Mcdaniels MD [facility] [place] [address] 12/13/2023 10:00 AM EDT Clinical [place] [phone] [facility] [place] [address] documented as of this encounter Visit Diagnoses Not on filedocumented in this encounter Care Teams Production Lead Relationship Specialty Start Date End Date Polo Pearce PA [address] [place] [address] PCP - General Internal Medicine 06/09/21 documented as of this encounter
--- OUTSIDE RECORDS SUMMARY | 2023-10-22 00:44 | XMS_ITS | Encounter Summary ---
Author Organization [facility] Address [facility] [place] [address] Care Team Providers Care Executive Sales Assistant Name Role Phone Pool Pearce Primary Care Provider [phone] Encounter Details Date Type Department Care Team (Late st Contact Info) Description 03/19/2022 Telephone Cardiology at [address] [phone] Jed Tovar MD [facility] [place] [address] Social History Tobacco Use Types Packs/Day Years [...] for two weeks. Has been admitted to [facility] ED for this with rule out of aorta dissection. However, pain continues. Dr. Kinsey of [facility] cardiology has just begun diuretic therapy, in [...] PM EDT Office Visit Cardiology at [address] [phone] Jaspreet Kinsey MD [facility] [place] [address] 10/28/2023 9:00 AM EDT Office [place] [address] 10/29/2023 10:00 AM EDT Clinical [place] [address] 10/29/2023 10:15 AM EDT Procedure [place] [address] 11/01/2023 5:00 PM EDT Office Visit [place] [address] Selene Browning, PhD [facility] [place] [address] 11/22/2023 4:40 PM EDT Office Visit Cardiology at [address] [address] Porsha Mcdaniels MD [facility] [place] [address] 12/13/2023 10:00 AM EDT Clinical Support [place] [address] Lucero Romero, [place] [place] [address] documented as of this encounter Visit Diagnoses Not on filedocumented in this encounter Care Teams Executive Sales Assistant Relationship Specialty Start Date End Date Polo Pearce PA [address] [place] [address] PCP - General Internal Medicine 06/09/21 documented as of this encounter
--- OUTSIDE RECORDS SUMMARY | 2023-10-22 00:44 | XMS_ITS | Encounter Summary ---
Author Organization [facility] Address [facility] [place] [address] Care Team Providers Care Cable Worker Helper Name Role Phone Polo Pearce Primary Care Provider [phone] Encounter Details Date Type Department Care Team (Late st Contact Info) Description 09/16/2021 Telephone Cardiology at [address] [place] [address] Jaspreet Kinsey MD [facility] [place] [address] Social History Tobacco Use Types Packs/Day Years [...] so can she have it here at [facility]. She left her work number for calling her back during the day: [phone]. Or you may leave a message on her cell phone: [phone]. documented in this encounter Plan of Treatment Upcoming Encounters Date Type Department Care Team (Late st Contact Info) Description 10/26/2023 4:00 PM EDT Office Visit Cardiology at [address] [phone] Jaspreet Kinsey MD [facility] [place] [address] 10/28/2023 9:00 AM EDT Office [place] [address] 10/29/2023 10:00 AM EDT Clinical [place] [address] 10/29/2023 10:15 AM EDT Procedure [place] [address] 11/01/2023 5:00 PM EDT Office Visit [place] [address] Selene Browning, PhD [facility] [place] [address] 11/22/2023 4:40 PM EDT Office Visit Cardiology at [address] [phone] Porsha Mcdaniels MD [facility] [place] [address] 12/13/2023 10:00 AM EDT Clinical Support [place] [address] Lucero Romero, [place] [place] [address] documented as of this encounter Visit Diagnoses Not on filedocumented in this encounter Care Teams Cable Worker Helper Relationship Specialty Start Date End Date Polo Pearce PA [address] [place] [address] PCP - General Internal Medicine 06/09/21 documented as of this encounter
--- OUTSIDE RECORDS SUMMARY | 2023-10-22 00:44 | XMS_ITS | Encounter Summary ---
Author Organization [place] [address] Care Team Providers Care Dynamics Ax Technical Architect Name Role Phone Polo Pearce Primary Care Provider [phone] Reason for Referral * Consultation (Routine) - Closed Specialty Diagnoses / Procedures Referred By Contact Referred To Contact Electrophysiology / Cardiology Diagnoses Supraventricular tachycardia evaluation for AVNRT ablation due to symptomatic SVT with myocardial injury Sandy Serna MD [facility] [place] [address] [facility] Card[facility] [address] [place] [phone] Referral ID Status Reason Start Date Expiration Date V isits Requested Visits Authorized [id number] Closed Consult, Test & Treat 06/14/2021 06/14/2022 1 1 Reason for Visit * Auth/Cert Specialty Diagnoses / Procedures Referred By Jayant harris Referred To Contact Diagnoses NSTEMI (non-ST elevated myocardial infarction) NSTEMI Procedures EMERGENCY IPI Referral ID Status Reason Start Date Expiration Date Visits Re quested Visits Authorized [id number] 1 1 Encounter Details Date Type Department Care Team (Latest Contact Info) Description 06/13/2021 12:35 PM EDT - 06/14/2021 1:22 PM EDT Hospital Encounter [place] [address] Jose Rodrigues MD [facility] [place] [address] Chest pain, unspecified type; Supraventricular tachycardia; Chest [...] depressions on EKG. Indira was transferred to [facility] for further evaluation. ?? Of note, the patient was just released from [facility] [...] at 0.04 consistent with myocardial injury pattern. [facility] was not pursued as the patient was CP free, has suspected microvascular disease from [facility] 18 months ago and episode was [...] 8:20 AM Jaspreet Kinsey MD Cardiology at [place] Arrive at: [facility] [address] [phone] Future Orders Complete By Expires NM PET CT Cardiac Pharmacologic Stress and Rest [[id number] Custom] 06/14/2021 10/14/2021 Process Instructions: Scheduling Instructions: Questions: Where will study be performed?: [facility] Radiology Reason for exam and clinical history: concern for microvascular disease vs CAD Clinical information / chavis questions for radiologist: Is the patient ?: No Initial treatment or subsequent treatment?: Stat read required?: Does patient require sedation?: GA rationale: Date of injury if applicable: Requested Time: NM PET CT Cardiac Pharmacologic Stress CT Component [[id number] Custom] 06/14/2021 10/14/2021 Process Instructions: Scheduling Instructions: Questions: Where will study be performed?: [facility] Radiology Reason for exam and clinical history: Study performed for attenuation correction of the stress test. Nuclear Pharmacologic Stress Cardiology (PET CT Mobile) [[id number] CPT(R)] 06/14/2021 10/14/2021 Process Instructions: Order [id number], NM myocardial perfussion scan, pharmacologic, should also be placed for the radiologyportion of the test. Scheduling Instructions: Cardiac perfusion (Stress and Lexiscan) - NPO after midnight, medication instructions per referringphysician. Avoidance of all caffeinated and decaffeinated products (No coffee, teas, chocolate, or cola drinks) for at least 12 hours prior to exam. Questions: Where will study be performed?: [facility] Clinics Does the [...] Center 07/23/2021 8:20 AM Jaspreet Kinsey MD [facility] Cardio [facility] Your Inpatient Medical Team at [facility] Name(s) of your inpatient provider(s): Attending - Jose Rodrigues MD Fellow - Brody Bernard MD Resident - Sandy Serna MD Speech And Language Specialist - Sha Vale MD Your Primary Care Provider: JOCY Franco [phone] For questions regarding this document or issues relating to this hospitalization on the Medical Service, please contact your inpatient physician through the [facility] Stroboroma Operator . Issues afterhours and on weekends will be handled by the Hospitalist staff on-call. For questions regarding this document or issues relating to this hospitalization on the Medical Service, please contact your inpatient physician through the [facility] Stroboroma Operator . Issues afterhours and on weekends will be handled by the Flat Sorting Machine Clerk staff on-call. Signed: Sandy Serna Internal Medicine PGY-3 Cardiovascular Medicine S2 Team Pager [phone] documented in this encounter Discharge Instructions * [...] Center 07/23/2021 8:20 AM Jaspreet Kinsey MD [facility] Cardio [facility] Your Inpatient Medical Team at [facility] Name(s) of your inpatient provider(s): Attending - Jose Rodrigues MD Fellow - Brody Bernard MD Resident - Sandy Serna MD Speech And Language Specialist - Sha Vale MD Your Primary Care Provider: JOCY Franco [phone] For questions regarding this document or issues relating to this hospitalization on the Medical Service, please contact your inpatient physician through the [facility] Stroboroma Operator . Issues afterhours and on weekends [...] as needed. 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 with hx of HFpEF, MARYLOU, who is admitted from [facility] with associated chest pain last night [...] depressions on EKG. Indira was transferred to [facility] for further evaluation. Of note, the patient was just released from [facility] [...] DAILY ??? fluticasone propionate (FLONASE) 50 mcg/actuation [place], Suspension 1 spray, Each Nare, DAILY ??? [...] ??? Clobetasol Rash Family History: Father from [place] s/p multiple coronary stents at Social History: [...] at coronary flow reserve Jose Rodrigues MD, [facility] Section of Cardiovascular Medicine [facility] Mobile Application Architectpatrol captain [facility] [employer] [facility] documented in this encounter Plan of Treatment Upcoming Encounters Date Type Department Care Team (Late st Contact Info) Description 10/26/2023 4:00 PM EDT Office Visit Cardiology at [address] [phone] Jaspreet Kinsey MD [facility] [place] [address] 10/28/2023 9:00 AM EDT [place] [address] 10/29/2023 10:00 AM EDT Clinical [place] [address] 10/29/2023 10:15 AM EDT Procedure [place] [address] 11/01/2023 5:00 PM EDT Office [place] [phone] Selene Browning, PhD [facility] [place] [address] 11/22/2023 4:40 PM EDT Office Visit Cardiology at [address] [phone] Porsha Mcdaniels MD [facility] [place] [address] 12/13/2023 10:00 AM EDT Clinical [place] [phone] [facility] [place] [address] Scheduled Referrals Name Type Priority Associated Diagnoses [...] Chest pain, unspecified type RAPID COVID-19 PCR ([facility]/APD/[facility]H) Routine 06/13/2021 1:09 PM EDT documented in this encounter Results * Magnesium (06/14/2021 5:13 AM EDT) Pathologist [facility] Magnesium 0.90 0.69 - 1.07 mmol/L [facility] Blood Venous Draw / Unknown 06/14/2021 5:13 AM EDT 06/14/2021 5:25 AM EDT Narrative Resulting Agency Comment Spec In Lab Sandy Serna MD CHEMISTRY ORDER ARABELLA [facility] [place] [address] * (ABNORMAL) Troponin (06/14/2021 5:13 AM EDT) Troponin-T 0.04(H) 0.00 - 0.00 ng/mL [facility] Comment: The 99th percentile for Troponin T is less than 0.01 ng/mL, any detectable cTnT concentration using this assay should be considered elevated. According to the third universal definition of myocardial infarction the following criteria with a clinical presentation consistent with acute myocardial ischemia meets the diagnosis for a myocardial infarction ([place]). Detection of a rise and/or fall of cTnT, with at least one value greater than the 99th percentile (> or = 0.01) and with at least one of the following ?? Symptoms of ischemia ?? New or presumed new significant WZ-wpvexof-K wave (ST-T) changes or new left bundle [...] additional sample may be indicated. Reference: Third [place] Definition of Myocardial Infarction. Journal of the [place] College [employer] 2012;60:1581-98 Blood 06/14/2021 5:13 AM EDT 06/14/2021 5:19 AM EDT Narrative Resulting Agency Comment Spec In Lab Jose Rodrigues MD CHEMISTRY ORDERABLES [facility] [place] [address] * Heparin (unfractionated) Level (06/14/2021 5:13 AM EDT) UF Heparin 0.66 IU/mL [facility] Comment: [...] Lab Jose Rodrigues MD HEMATOLOGY ORDERABLE S [facility] [place] [address] * Differential, Automated (06/14/2021 5:13 AM EDT) Neutrophil % 62.5 % [facility] Neutrophil Absolute 4.36 1.70 - 6.10 x10(3)/[facility] Lymph % 24.1 % [facility] Lymphocytes Abs 1.7 0.9 - 3.2 x10(3)/[facility] Monocyte % 9.2 % [facility] Monocyte Abs 0.6 0.3 - 0.9 x10(3)/[facility] Eos % 2.9 % [facility] Eosinophils Abs 0.2 0.0 - 0.4 x10(3)/[facility] Basophil % 1.0 % [facility] Baso Absolute 0.1 0.0 - [...] - 0.04 x10(3)/[facility] Blood 06/14/2021 5:13 AM EDT 06/14/2021 5:19 AM EDT Narrative Resulting Agency Comment Spec In Lab Sha Vale MD HEMATOLOGY ORDERABLE S Performing Organization Address City/[facility]/ZIP Co de Phone Number [facility] [place] [address] * (ABNORMAL) Hemogram (06/14/2021 5:13 AM EDT) White Blood Cell 7.0 4.0 - 9.5 x10(3)/mc L [facility] Red Blood Cell 4.94 4.00 - 5.21 x10(6)/mc L [facility] Hemoglobin 15.2 11.7 - 15.5 g/dL [facility] Hematocrit 46.5(H) 35.7 - 45.8 % [facility] Mean Cell Volume 94.1 82.6 - 94.4 fL [facility] Mean Cell Hemoglobin 30.8 27.1 - 32.0 pg [facility] Mean Cell Hemoglobin Concentration 32.7 31.7 - 35.0 g/dL [facility] Platelet 252 145 - 357 x10(3)/mc L [facility] RDW Standard Deviation 48.5(H) 37.0 - 46.0 fL [facility] RDW coefficient of variation 14.2(H) 11.5 - 14.1 % [facility] Mean Platelet Volume 10.4 7.6 - 12.9 fL [facility] NRBC% auto 0.0 % [facility] NRBC Absolute 0.000 0.000 - 0.000 x10(3)/ L [facility] Blood 06/14/2021 5:13 AM EDT 06/14/2021 5:19 AM EDT Narrative Resulting Agency Comment Spec In Lab Sha Vale MD HEMATOLOGY ORDERABLE S [facility] [place] [address] * (ABNORMAL) Basic Metabolic Panel (non-fasting) (06/14/2021 5:13 AM EDT) Glucose 98 65 - 199 mg/dL [facility] Comment:Diabetes: >=200 mg/d L plus symptoms Blood Urea Nitrogen 21(H) 8 - 18 mg/dL [facility] Creatinine 0.80 0.70 - 1.20 mg/dL [facility] [...] - 107 mmol/L [facility] Carbon Dioxide 19(L) 22 - 31 mmol/L [facility] Anion Gap 13 5 - 15 mmol/L [facility] Calcium 9.0 8.5 - 10.5 mg/dL [facility] Est Glomerular Filtration Rate 85 >=60 mL/min/1. 73 m?? [facility] Comment: This patient? s estimated [...] In Lab Jose Rodrigues MD CHEMISTRY ORDERABLES [facility] [place] [address] * (ABNORMAL) Troponin (06/13/2021 9:41 PM EDT) Troponin-T 0.04(H) 0.00 - 0.00 ng/mL [facility] Comment: The 99th percentile for Troponin T is less than 0.01 ng/mL, any detectable cTnT concentration using this assay should be considered elevated. According to the third universal definition of myocardial infarction the following criteria with a clinical presentation consistent with acute myocardial ischemia meets the diagnosis for a myocardial infarction (IN). Detection of a rise and/or fall of cTnT, with at least one value greater than the 99th percentile (> or = 0.01) and with at least one of the following ?? Symptoms of ischemia ?? New or presumed new significant UW-vyisvtr-B wave (ST-T) changes or new left bundle [...] additional sample may be indicated. Reference: Third [place] Definition of Myocardial Infarction. Journal of the [place] College [employer]iology 2012;60:1581-98 Blood 06/13/2021 9:41 PM EDT 06/13/2021 9:55 PM EDT Narrative Resulting Agency Comment Spec In Lab Jose Rodrigues MD CHEMISTRY ORDERABLES [facility] [place] [address] * Heparin (unfractionated) Level (06/13/2021 9:41 PM EDT) Pathologist [facility] UF Heparin 0.33 IU/mL [facility] Comment: [...] Lab Jose Rodrigues MD HEMATOLOGY ORDERABLE S [facility] [place] [address] * XR Chest PA & Lateral (Generic) [...] who have questions please contact the health school childcare attendant that requested your imaging first. ? Electronically signed by: ZENAIDA TAVARES [facility] ([phone]), at 06/14/2021 8:08 AM Narrative 06/14/2021 8:08 [...] patients who have questions please contactthe health school childcare attendant that requested your imaging first. Electronically signed by: ZENAIDA TAVARES [facility] ([phone]),at 06/14/2021 8:08 AM Jose Rodrigues MD IMG DX ORDERABLES * (ABNORMAL) Troponin (06/13/2021 6:40 PM EDT) Troponin-T 0.04(H) 0.00 - 0.00 ng/mL [facility] Comment: The 99th percentile for Troponin T is less than 0.01 ng/mL, any detectable cTnT concentration using this assay should be considered elevated. According to the third universal definition of myocardial infarction the following criteria with a clinical presentation consistent with acute myocardial ischemia meets the diagnosis for a myocardial infarction ([place]). Detection of a rise and/or fall of cTnT, with at least one value greater than the 99th percentile (> or = 0.01) and with at least one of the following ?? Symptoms of ischemia ?? New or presumed new significant JW-nomjrza-R wave (ST-T) changes or new left bundle [...] additional sample may be indicated. Reference: Third [place] Definition of Myocardial Infarction. Journal of the [employer] College [employer]iology 2012;60:1581-98 Blood 06/13/2021 6:40 PM EDT 06/13/2021 6:46 PM EDT Narrative Resulting Agency Comment Spec In Lab Jose Rodrigues MD CHEMISTRY ORDERABLES Performing Organization Address [facility] de Phone Number [facility] [place] [address] * T4, free (06/13/2021 3:26 PM EDT) Free T4 1.08 0.93 - 1.70 ng/dL [facility] Comment: Reference Interval (ng/dL): Females: ??First Trimester: 0.97-1.68 ??Second Trimester: 0.77-1.51 ??Third Trimester: 0.77-1.49 Blood 06/13/2021 3:26 PM EDT 06/13/2021 3:52 PM EDT Narrative Resulting Agency Comment Spec In Lab Sha Vale MD CHEMISTRY ORDERABLES Performing Organization Address [facility] de Phone Number [facility] [place] [address] * Heparin (unfractionated) Level (06/13/2021 3:26 PM EDT) Pathologist [facility] UF Heparin <0.04 IU/mL [facility] Comment: [...] HEMATOLOGY ORDERABLE S Performing Organization Address [facility] Co de Phone Number [facility] [place] [address] * Bilirubin, Direct (06/13/2021 3:26 PM EDT) Bilirubin, Direct 0.1 0.0 - 0.3 mg/dL [facility] Blood Venous Draw / Unknown 06/13/2021 3:26 PM EDT 06/13/2021 3:39 PM EDT Narrative Resulting Agency Comment Spec In Lab Sha Vale MD CHEMISTRY ORDERABLES Performing Organization Address [facility] Co md Phone Number [facility] [place] [address] * (ABNORMAL) Comprehensive metabolic panel (non-fasting) (06/13/2021 3:26 PM EDT) Glucose 77 65 - 199 mg/dL [facility] Comment:Diabetes: >=200 mg/d L plus symptoms Blood Urea Nitrogen 20(H) 8 - 18 mg/dL [facility] Creatinine 0.88 0.70 - 1.20 mg/dL [facility] Sodium 137 135 - 145 mmol/L [facility] Potassium 4.4 3.5 - 5.0 mmol/L [facility] Comment: Please note: ??Patients with WBC >100,000 may have falsely elevated Potassium levels. ??For accurate Potassium quantification in these patients send serum separator tube (gold top) for subsequent determinations. ??Contact the Clinical Chemistry Laboratory if there are any questions. Chloride 102 98 - 107 mmol/L [facility] Carbon Dioxide 17(L) 22 - 31 mmol/L [facility] Anion Gap 18(H) 5 - 15 mmol/L [facility] Calcium 9.2 8.5 - 10.5 mg/dL [facility] Protein, Total 7.4 6.1 - 8.0 g/dL [facility] Albumin 4.0 3.2 - 5.2 g/dL [facility] Aspartate Aminotransferase 44(H) 0 - 30 unit/L [facility] Alanine Aminotransferase 31(H) 0 - 30 unit/L [facility] Alkaline Phosphatase 70 35 - 105 unit/L [facility] Bilirubin, Total 0.4 0.2 - 1.3 mg/dL [facility] Est Glomerular Filtration Rate 76 >=60 mL/min/1. 73 m?? [facility] Comment: This patient? s estimated [...] In Lab Sha Vale MD CHEMISTRY ORDERABLES [facility] [place] [address] * (ABNORMAL) pro-Brain Natriuretic Peptide (06/13/2021 3:26 PM EDT) [facility] NT-proBNP 2,479(H) <=124 pg/mL [facility] Blood Venous Draw / Unknown 06/13/2021 3:26 PM EDT 06/13/2021 3:39 PM EDT Narrative Resulting Agency Comment Spec In Lab Sha Vale MD CHEMISTRY ORDERABLES [facility] [place] [address] * Magnesium (06/13/2021 3:26 PM EDT) [facility] Magnesium 0.93 0.69 - 1.07 mmol/L [facility] Blood Venous Draw / Unknown 06/13/2021 3:26 PM EDT 06/13/2021 3:39 PM EDT Narrative Resulting Agency Comment Spec In Lab Sha Vale MD CHEMISTRY ORDERABLES Performing Organization Address City/[facility]/ZIP Co de Phone Number [facility] [place] [address] * Phosphorus (06/13/2021 3:26 PM EDT) [facility] Phosphorus 3.6 2.5 - 4.5 mg/dL [facility] Blood Venous Draw / Unknown 06/13/2021 3:26 PM EDT 06/13/2021 3:39 PM EDT Narrative Resulting Agency Comment Spec In Lab Sha Vale MD CHEMISTRY ORDERABLES Performing Organization Address City/[facility]/ZIP Co de Phone Number [facility] [place] [address] * APTT (06/13/2021 3:26 PM EDT) [facility] Partial Thromboplastin Time 29 25 - 37 sec [facility] Comment: The PTT is NOT appropriate for heparin monitoring. Use the Anti-Xa level for heparin monitoring (HEP UFH) or LMWH monitoring (HEP LMW). A PTT less than 37 seconds generally indicates adequate hemostasis. Blood 06/13/2021 3:26 PM EDT 06/13/2021 3:36 PM EDT Narrative Resulting Agency Comment Spec In Lab Jose Rodrigues MD HEMATOLOGY ORDERABLE S Performing Organization Address [facility] de Phone Number [facility] [place] [address] * Prothrombin Time (06/13/2021 3:26 PM EDT) Prothrombin Time 12.4 9.4 - 12.5 sec [facility] International Normalization Ratio 1.1 [facility] Comment: An INR [...] HEMATOLOGY ORDERABLE S Performing Organization Address [facility] de Phone Number [facility] [place] [address] * (ABNORMAL) TSH [place] (06/13/2021 3:26 PM EDT) Thyroid Stimulating Hormone 6.47(H) 0.27 - 4.20 mcIU/mL [facility] Comment: Reference Interval (mcIU/mL): Females: ??First Trimester: 0.23-3.88 ??Second Trimester: 0.22-3.90 ??Third Trimester: 0.44-4.66 Blood 06/13/2021 3:26 PM EDT 06/13/2021 3:37 PM EDT Narrative Resulting Agency Comment Spec In Lab Jose Rodrigues MD CHEMISTRY ORDERABLES Performing Organization Address City/[facility]/[place] [address] * Differential, Automated (06/13/2021 3:26 PM EDT) Neutrophil % 64.4 % [facility] Neutrophil Absolute 4.05 1.70 - 6.10 x10(3)/[facility] Lymph % 22.6 % [facility] Lymphocytes Abs 1.4 0.9 - 3.2 x10(3)/[facility] Monocyte % 10.0 % [facility] Monocyte Abs 0.6 0.3 - 0.9 x10(3)/[facility] Eos % 1.8 % [facility] Eosinophils Abs 0.1 0.0 - 0.4 x10(3)/[facility] Basophil % 1.0 % [facility] Baso Absolute 0.1 0.0 - [...] - 0.04 x10(3)/[facility] Blood 06/13/2021 3:26 PM EDT 06/13/2021 3:37 PM EDT Narrative Resulting Agency Comment Spec In Lab Sha Vale MD HEMATOLOGY ORDERABLE S Performing Organization Address City/[facility]/[place] [address] * (ABNORMAL) Hemogram (06/13/2021 3:26 PM EDT) Pathologist [facility] White Blood Cell 6.3 4.0 - 9.5 x10(3)/ L [facility] Red Blood Cell 5.27(H) 4.00 - 5.21 x10(6)/ L [facility] Hemoglobin 16.1(H) 11.7 - 15.5 g/dL [facility] Hematocrit 49.7(H) 35.7 - 45.8 % [facility] Mean Cell Volume 94.3 82.6 - 94.4 fL [facility] Mean Cell Hemoglobin 30.6 27.1 - 32.0 pg [facility] Mean Cell Hemoglobin Concentration 32.4 31.7 - 35.0 g/dL [facility] Platelet 237 145 - 357 x10(3)/[facility] RDW Standard Deviation 49.1(H) 37.0 - 46.0 [facility] RDW coefficient of variation 14.2(H) 11.5 - 14.1 % [facility] Mean Platelet Volume 11.3 7.6 - 12.9 fL [facility] NRBC% auto 0.0 % [facility] NRBC Absolute 0.000 0.000 - 0.000 x10(3)/[facility] Blood 06/13/2021 3:26 PM EDT 06/13/2021 3:37 PM EDT Narrative Resulting Agency Comment Spec In Lab Sha Vale MD HEMATOLOGY ORDERABLE S [facility] [place] [address] * (ABNORMAL) Troponin (06/13/2021 3:26 PM EDT) Pathologist [facility] Troponin-T 0.04(H) 0.00 - 0.00 ng/mL [facility] Comment: The 99th percentile for Troponin T is less than 0.01 ng/mL, any detectable cTnT concentration using this assay should be considered elevated. According to the third universal definition of myocardial infarction the following criteria with a clinical presentation consistent with acute myocardial ischemia meets the diagnosis for a myocardial infarction (IN). Detection of a rise and/or fall of cTnT, with at least one value greater than the 99th percentile (> or = 0.01) and with at least one of the following ?? Symptoms of ischemia ?? New or presumed new significant TS-yvnfujd-B wave (ST-T) changes or new left bundle [...] additional sample may be indicated. Reference: Third [place] Definition of Myocardial Infarction. Journal of the [place] [employer] 2012;60:1581-98 Blood 06/13/2021 3:26 PM EDT 06/13/2021 3:37 PM EDT Narrative Resulting Agency Comment Spec In Lab Jose Rodrigues MD CHEMISTRY ORDERABLES [facility] [place] [address] * EKG 12 Lead (06/13/2021 2:18 PM EDT) Ventricular rate 48 BPM MUSE SYSTEM Atrial Rate 48 BPM MUSE SYSTEM P-R Interval 196 ms MUSE SYSTEM QRS Duration 84 ms MUSE SYSTEM Q-T Interval 498 ms MUSE SYSTEM QTC Calculated (Bezet) 444 ms MUSE SYSTEM Calculated P [place] 1 degrees MUSE SYSTEM Calculated R [place] 27 degrees MUSE SYSTEM Calculated T [place] -27 degrees MUSE SYSTEM INTERPRETATION Sinus bradycardia Nonspecific ST and T wave abnormality Abnormal ECG When compared with ECG of 07-JUN-2021 16:33, No significant change was found I personally reviewed the tracing and edited the fellows interpretation Confirmed by fellow Jaspreet Grimm ([id number]) on 06/16/2021 1:34:45 PM Confirmed by MD Angelo Danette ([id number]) on 06/16/2021 1:39:20 PM MUSE SYSTEM 06/13/2021 2:18 PM EDT 06/16/2021 1:39 PM EDT Jose Rodrigues MD ECG ORDERABLES MUSE SYSTEM * COVID-19 PCR (06/13/2021 1:09 PM EDT) SARS-CoV-2 RNA (Rapid) Not Detected Not Detected [facility] Comment: This result should be [...] using the Simplexa COVID-19 Direct Assay by [employer] as authorized by the FDA issued Emergency [...] Department of Pathology and Laboratory Medicine at [facility], certified under the Clinical Laboratory Improvement Amendments [...] fact sheets at the following FDA website: https://www.fda.gov/medical-devices/edjgztlipex-kkfeixx-2842-nxetz-65-modapleco- use-a sgwkrikkdiuxq-enagzwm-rqemkyv/sqpwp-qobbbuewtqw-befe SARS-CoV-2 Source 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 Scheduled Medication Order 06/12/2021 06/13/202106/1406/14/2021 aspirin chewable tablet 81 mg 81 mg, [...] RN)2101 (Given - Provider: Dee Raymond RN) 946 (Given - Provider: Katalina Wilkinson RN) topiramate [...] Katalina Wilkinson RN)2000 (Rate/Dose Verify - Provider: eDe Raymond RN)2141 (Rate/Dose Verify - Provider: Dee Raymond RN)2200 (Rate/Dose Verify - Provider: Dee Raymond RN) 0000 (Rate/Dose Verify - Provider: Annalisa Chris)0200 (Rate/Dose Verify - Provider: Annalisa Chris)0400 (Rate/Dose Verify - Provider: Annalisa Chris)0513 (Rate/Dose Verify - Provider: Dee Raymond RN)0600 (Rate/Dose Verify - Provider: Dee Raymond RN)0930 (Stopped - Provider: Katalina Wlikinson RN) PRN Medication Order 06/12/2021 06/13/2021 06/14/2021 [...] Routine documented in this encounter Care Teams Dynamics Ax Technical Architect Relationship Specialty Start Date End Date Polo Pearce PA [address] [place] [address] PCP - General Internal Medicine 06/09/21 documented as of this encounter
--- OUTSIDE RECORDS SUMMARY | 2023-10-22 00:44 | XMS_ITS | Encounter Summary ---
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 Special Notes/Considerations: Given fequent ED visits to [facility] within the past 4 days, will contact pt next week (03/18) to see howsymptoms are progressing. If still having pain, issues will need to reschedule procedure per Dr. Tovar documented in this encounter Plan of Treatment Upcoming Encounters Date Type Department Care Team (Late st Contact Info) Description 10/26/2023 4:00 PM EDT Office Visit Cardiology at [address] [place] [phone] Jaspreet Kinsey MD [facility] [place] [address] 10/28/2023 9:00 AM EDT Office Visit [place] [address] 10/29/2023 10:00 AM EDT Clinical Support [place] [address] 10/29/2023 10:15 AM EDT Procedure visit [place] [address] 11/01/2023 5:00 PM EDT Office Visit Gastroenterology at [place] [phone] Selene Browning, PhD [facility] [place] [address] 11/22/2023 4:40 PM EDT Office Visit Cardiology at [place] [phone] Porsha Mcdaniels MD [facility] [place] [address] 12/13/2023 10:00 AM EDT Clinical Support [place] [address] Lucero Romero, ALVA [facility] [place] [address] documented as of this encounter Visit Diagnoses Not on filedocumented in this encounter Care Teams Director Of Volunteer Services Relationship Specialty Start Date End Date Polo Pearce PA [address] [place] [address] PCP - General Internal Medicine 06/09/21 documented as of this encounter
--- OUTSIDE RECORDS SUMMARY | 2023-10-22 00:44 | XMS_ITS | Encounter Summary ---
Author Organization [facility] Address [facility] [place] [address] Care Team Providers Care Medicaid Biller Name Role Phone Polo Pearce Primary Care Provider [phone] Reason for Visit * Reason Comments Congestive Heart Failure HFpEF Palpitations SVT/AVNRT * Consultation (Routine) - Closed Specialty Diagnoses / Procedures Referred By Contac t Referred To Contact Cardiology Diagnoses HFp EF Procedures NEW PATIENT Mario Hallman MD [facility] [address] Jaspreet Kinsey MD [facility] [place] [address] Referral ID Status Reason Start Date Expiration Date Visits Re quested Visits Authorized [id number] Closed 07/23/2021 07/23/2022 1 1 Encounter Details Date Type Department Care Team (Late st Contact Info) Description 07/23/2021 8:20 AM EDT Office Visit Cardiology at [address] [phone] Jaspreet Kinsey MD [facility] [place] [address] Heart failure with preserved ejection fraction, unspecified [...] ejection fraction 05/2021: subacute, presented to [facility] with RUQ pain, weight gain, and [...] needed. ??? fluticasone propionate (FLONASE) 50 mcg/actuation [place], Suspension 1 spray by Each Nare route [...] for hfpef and svt She presented to [facility] end of May with subacute RUQ [...] that have resolved RTC 6 months Jaspreet iKnsey MD Between 45-59 minutes were spent doing [...] PM EDT Office Visit Cardiology at [address] [address] Jaspreet Kinsey MD [facility] [place] [address] 10/28/2023 9:00 AM EDT Office [place] [address] 10/29/2023 10:00 AM EDT Clinical [place] [address] 10/29/2023 10:15 AM EDT Procedure [place] [address] 11/01/2023 5:00 PM EDT Office [place] [address] Selene Browning, PhD [facility] [address] 11/22/2023 4:40 PM EDT Office Visit Cardiology at [address] [phone] Porsha Mcdaniels MD [facility] [place] [address] 12/13/2023 10:00 AM EDT Clinical [place] [phone] [facility] [place] [address] documented as of this encounter Visit Diagnoses Diagnosis Heart failure with preserved ejection fraction, unspecified HF chronicity SVT (supraventricular tachycardia) Other specified cardiac dysrhythmias documented in this encounter Care Teams Medicaid Biller Relationship Specialty Start Date End Date Polo Pearce PA [address] [place] [address] PCP - General Internal Medicine 06/09/21 documented as of this encounter
--- OUTSIDE RECORDS SUMMARY | 2023-10-22 00:44 | XMS_ITS | Encounter Summary ---
Author Organization [facility] [place] [address] Care Team Providers Care Manager Bilingual Name Role Phone Polo Pearce Primary Care Provider [phone] Encounter Details Date Type Department Care Team (Late st Contact Info) Description 12/30/2021 8:00 PM EDT Ancillary Procedure [place] [address] Jaspreet Kinsey MD [facility] [place] [address] Social History Tobacco Use Types Packs/Day Years [...] PM EDT Office Visit Cardiology at [address] [phone] Jaspreet Kinsey MD [facility] [place] [address] 10/28/2023 9:00 AM EDT Office [place] [address] 10/29/2023 10:00 AM EDT Clinical Support [place] [address] 10/29/2023 10:15 AM EDT Procedure [place] [address] 11/01/2023 5:00 PM EDT Office Visit [place] [phone] Selene Browning, PhD [facility] [place] [address] 11/22/2023 4:40 PM EDT Office Visit Cardiology at [address] [phone] Porsha Mcdaniels MD [facility] [place] [address] 12/13/2023 10:00 AM EDT Clinical Support [place] [phone] Lucero Romero, ALVA [facility] [place] [address] documented as of this encounter Procedures Procedure Name Priority Date/Time Associated Diagnosis Comments FILM LIBRARY STORAGE ONLY CT CHEST Routine 12/30/2021 7:55 PM EDT documented in this encounter Results * Film Library- Storage Only CT Chest (12/30/2021 7:55 PM EDT) Narrative [facility] - 12/30/2021 7:55 PM EDT This exam is auto-finalizing. It's purpose is for storage only. Jaspreet Kinsey MD IMG FILM LIBRARY ORD ERABLES [facility] [place], [place] documented in this encounter Visit Diagnoses Not on filedocumented in this encounter Care Teams Manager Bilingual Relationship Specialty Start Date End Date Polo Pearce PA [address] [place] [address] PCP - General Internal Medicine 06/09/21 documented as of this encounter
--- OUTSIDE RECORDS SUMMARY | 2023-10-22 00:44 | XMS_ITS | Encounter Summary ---
Author Organization [facility]ending [facility] [place] [address] Care Team Providers Care Commodities Requirements Analyst Name Role Phone Polo Pearce Primary Care Provider [phone] Encounter Details Date Type Department Care Team (Late st Contact Info) Description 03/10/2022 Telephone Cardiology at [address] [phone] Maegan Mike APRN [facility] [place] [place] [address] Social History Tobacco Use Types Packs/Day Years [...] Referring Provider: Otis Rubi APRN Patient Location: [facility] ED Past Medical History: Type II non-STEMI in October 2021, cardiac cath with normal coronary arteries in October 2019 AVNRT, 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 She [...] the patient condition. Maegan Mike APRN Pager [phone] 03/10/2022 documented in this encounter Plan of Treatment Upcoming Encounters Date Type Department Care Team (Late st Contact Info) Description 10/26/2023 4:00 PM EDT Office Visit Cardiology at [address] [place] [address] Jaspreet Kinsey MD [facility] [place] [address] 10/28/2023 9:00 AM EDT Office [place] [address] 10/29/2023 10:00 AM EDT Clinical [place] [address] 10/29/2023 10:15 AM EDT Procedure [place] [address] 11/01/2023 5:00 PM EDT Office [place] [phone] Selene Browning, PhD [facility] [place] [address] 11/22/2023 4:40 PM EDT Office Visit Cardiology at [address] [phone] Porsha Mcdaniels MD [facility] [place] [address] 12/13/2023 10:00 AM EDT Clinical [place] [phone] [facility] [place] [address] documented as of this encounter Visit Diagnoses Not on filedocumented in this encounter Care Teams Commodities Requirements Analyst Relationship Specialty Start Date End Date Polo Pearce PA [address] [place] [address] PCP - General Internal Medicine 06/09/21 documented as of this encounter
--- OUTSIDE RECORDS SUMMARY | 2023-10-22 00:44 | XMS_ITS | Encounter Summary ---
Author Organization [facility] Address [facility] [place] [address] Care Team Providers Care Magnaflux Operator Name Role Phone Polo Pearce Primary Care Provider [phone] Encounter Details Date Type Department Care Team (Late st Contact Info) Description 06/24/2022 Telephone Cardiology at [address] [place] [address] Jaspreet Kinsey MD [facility] [place] [address] Social History Tobacco Use Types Packs/Day Years [...] Aide Glass - 06/30/2022 11:54 AM EDT [facility] is faxing over her [...] Best # to reach her is work [phone] documented in this encounter Plan of Treatment Upcoming Encounters Date Type Department Care Team (Late st Contact Info) Description 10/26/2023 4:00 PM EDT Office Visit Cardiology at [address] [address] Jaspreet Kinsey MD [facility] [place] [address] 10/28/2023 9:00 AM EDT Office [place] [address] 10/29/2023 10:00 AM EDT Clinical [place] [address] 10/29/2023 10:15 AM EDT Procedure [place] [address] 11/01/2023 5:00 PM EDT Office Visit [place] [phone] Selene Browning, PhD [facility] [place] [address] 11/22/2023 4:40 PM EDT Office Visit Cardiology at [place] [phone] Porsha Mcdaniels MD [facility] [address] 12/13/2023 10:00 AM EDT Clinical Support Gastroenterology at [address] Lucero Romero, RD [facility] [place] [address] documented as of this encounter Visit Diagnoses Not on filedocumented in this encounter Care Teams Magnaflux Operator Relationship Specialty Start Date End Date Polo Pearce PA [address] [place] [address] PCP - General Internal Medicine 06/09/21 documented as of this encounter
--- OUTSIDE RECORDS SUMMARY | 2023-10-22 00:44 | XMS_ITS | Encounter Summary ---
Author Organization [facility] Address [facility] [place] [address] Care Team Providers Care Professional Healthcare Representative Name Role Phone Polo Pearce Primary Care Provider [phone] Encounter Details Date Type Department Care Team (Late st Contact Info) Description 03/10/2022 External [place] [address] Social History Tobacco Use Types Packs/Day Years [...] Office Visit Cardiology at [address] [phone] Jaspreet Kinsey MD [facility] [place] [address] 10/28/2023 9:00 AM EDT Office [place] [address] 10/29/2023 10:00 AM EDT Clinical [place] [address] 10/29/2023 10:15 AM EDT Procedure [place] [address] 11/01/2023 5:00 PM EDT Office Visit Gastroenterology at [place] [phone] Selene Browning, PhD [facility] [place] [address] 11/22/2023 4:40 PM EDT Office Visit Cardiology at [address] [phone] Porsha Mcdaniels MD [facility] [place] [address] 12/13/2023 10:00 AM EDT Clinical [place] [phone] [facility] [place] [address] documented as of this encounter Procedures Procedure Name Priority Date/Time Associated Diagnosis Comments ECG SCAN Routine 03/10/2022 documented in this encounter Results * Scan Doc: ECG (03/10/2022) Historical Provider MD FLEMING MGR SCAN EX T ORDR/RSLT documented in this encounter Visit Diagnoses Not on filedocumented in this encounter Care Teams Professional Healthcare Representative Relationship Specialty Start Date End Date Polo Pearce PA [address] [place] [address] PCP - General Internal Medicine 06/09/21 documented as of this encounter
--- OUTSIDE RECORDS SUMMARY | 2023-10-22 00:44 | XMS_ITS | Encounter Summary ---
Author Organization [facility] Address [facility] [place] [address] Care Team Providers Care Corporate Intern Name Role Phone Polo Pearce Primary Care Provider [phone] Encounter Details Date Type Department Care Team (Late st Contact Info) Description 03/17/2022 Telephone Cardiology at [address] [place] [address] Jaspreet Kinsey MD [facility] [place] [address] Social History Tobacco Use Types Packs/Day Years [...] the new one. Please call her @ [phone]. documented in this encounter Plan of Treatment Upcoming Encounters Date Type Department Care Team (Late st Contact Info) Description 10/26/2023 4:00 PM EDT Office Visit Cardiology at [address] [address] Jaspreet Kinsey MD [facility] [place] [address] 10/28/2023 9:00 AM EDT Office [place] [address] 10/29/2023 10:00 AM EDT Clinical [place] [address] 10/29/2023 10:15 AM EDT Procedure [place] [address] 11/01/2023 5:00 PM EDT Office [place] [phone] Selene Browning, [facility] [place] [address] 11/22/2023 4:40 PM EDT Office Visit Cardiology at [address] [address] Porsha Mcdaniels MD [facility] [place] [address] 12/13/2023 10:00 AM EDT Clinical [place] [phone] Lucero Romero, ALVA [facility] [place] [address] documented as of this encounter Visit Diagnoses Not on filedocumented in this encounter Care Teams Corporate Intern Relationship Specialty Start Date End Date Polo Pearce PA [address] [place] [address] PCP - General Internal Medicine 06/09/21 documented as of this encounter
--- OUTSIDE RECORDS SUMMARY | 2023-10-22 00:44 | XMS_ITS | Encounter Summary ---
Author Organization [facility] [place] [address] Care Team Providers Care Voice Data Communications Engineer Name Role Phone Polo Pearce Primary Care Provider [phone] Encounter Details Date Type Department Care Team (Late st Contact Info) Description 03/11/2022 Orders Only Cardiology at [address] [address] Jed Tovar MD [facility] [place] [address] SVT (supraventricular tachycardia) Social History Tobacco Use [...] PM EDT Office Visit Cardiology at [address] [phone] Jaspreet Kinsey MD [facility] [place] [address] 10/28/2023 9:00 AM EDT Office Visit [place] [address] 10/29/2023 10:00 AM EDT Clinical Support [place] [address] 10/29/2023 10:15 AM EDT Procedure visit [place] [address] 11/01/2023 5:00 PM EDT Office [place] [address] Selene Browning, PhD [facility] [place] [address] 11/22/2023 4:40 PM EDT Office Visit Cardiology at [address] [address] Porsha Mcdaniels MD [facility] [place] [address] 12/13/2023 10:00 AM EDT Clinical [place] [address] Lucero Romero, RD [facility] [place] [address] documented as of this encounter Visit Diagnoses Diagnosis SVT (supraventricular tachycardia) Other specified cardiac dysrhythmias documented in this encounter Care Teams Voice Data Communications Engineer Relationship Specialty Start Date End Date Polo Pearce PA [address] [place] [address] PCP - General Internal Medicine 06/09/21 documented as of this encounter
--- OUTSIDE RECORDS SUMMARY | 2023-10-22 00:44 | XMS_ITS | Encounter Summary ---
[place] [address] Care Team Providers Care Inbound Ingredient Logistics Specialist Name Role Phone Polo Pearce Primary Care Provider [phone] Reason for Visit * Reason Onset Date Comments Follow-up 03/18/2022 Encounter Details Date Type Department Care Team (Late st Contact Info) Description 03/18/2022 Telephone Cardiology at [address] [phone] Mary Motta, RN Follow-up Social History Tobacco [...] Dr. Tovar Pt saw Dr. Kinsey (primary county superintendent of schools on 03/16) where pt was known to [...] PM EDT Office Visit Cardiology at [address] [address] Jaspreet Kinsey MD [facility] [place] [address] 10/28/2023 9:00 AM EDT Office [place] [address] 10/29/2023 10:00 AM EDT Clinical [place] [address] 10/29/2023 10:15 AM EDT Procedure [place] [address] 11/01/2023 5:00 PM EDT Office Visit Gastroenterology at [place] [phone] Selene Browning, PhD [facility] [place] [address] 11/22/2023 4:40 PM EDT Office Visit Cardiology at [address] [phone] Porsha Mcdaniels MD [facility] [place] [address] 12/13/2023 10:00 AM EDT Clinical [place] [address] [facility] [place] [address] documented as of this encounter Visit Diagnoses Not on filedocumented in this encounter Care Teams Inbound Ingredient Logistics Specialist Relationship Specialty Start Date End Date Polo Pearce PA [address] [place] [address] PCP - General Internal Medicine 06/09/21 documented as of this encounter
--- OUTSIDE RECORDS SUMMARY | 2023-10-22 00:44 | XMS_ITS | Encounter Summary ---
Author Organization [facility] Address [facility] [place] [address] Care Team Providers Care Sorting Grapple Operator Name Role Phone Polo Pearce Primary Care Provider [phone] Encounter Details Date Type Department Care Team (Late st Contact Info) Description 04/16/2022 Refill Cardiology at [address] [place] [address] Jaspreet Kinsey MD [facility] [place] [address] Social History Tobacco Use Types Packs/Day Years [...] ??Order for CCTA placed by Dr. Kinsey. [facility] will contact you for scheduling. * [...] her tocontinue on this. Phone # Is [phone] documented in this encounter Plan of Treatment Upcoming Encounters Date Type Department Care Team (Late st Contact Info) Description 10/26/2023 4:00 PM EDT Office Visit Cardiology at [address] [place] [address] Jaspreet Kinsey MD [facility] [place] [address] 10/28/2023 9:00 AM EDT Office [place] [address] 10/29/2023 10:00 AM EDT Clinical Support [place] [address] 10/29/2023 10:15 AM EDT Procedure [place] [address] 11/01/2023 5:00 PM EDT Office [place] [address] Selene Browning, PhD [facility] [address] 11/22/2023 4:40 PM EDT Office Visit Cardiology at [address] [address] Porsha Mcdaniels MD [facility] [place] [address] 12/13/2023 10:00 AM EDT Clinical Support [place] [address] [facility] [place] [address] documented as of this encounter Visit Diagnoses Diagnosis Chronic heart failure with preserved ejection fraction Chest pain, unspecified type documented in this encounter Care Teams Sorting Grapple Operator Relationship Specialty Start Date End Date Polo Pearce PA Sb [address] [facility] [address] [place] [address] PCP - General Internal Medicine 06/09/21 documented as of this encounter
--- OUTSIDE RECORDS SUMMARY | 2023-10-22 00:44 | XMS_ITS | Encounter Summary ---
Author Organization [facility] Address [facility] [place] [address] Care Team Providers Care Filing Or Registry Clerk Name Role Phone Polo Pearce Primary Care Provider [phone] Encounter Details Date Type Department Care Team (Late st Contact Info) Description 12/30/2021 External [place] [address] Social History Tobacco Use Types Packs/Day Years [...] PM EDT Office Visit Cardiology at [address] [place] [address] Jaspreet Kinsey MD [facility] [place] [address] 10/28/2023 9:00 AM EDT Office [place] [address] 10/29/2023 10:00 AM EDT Clinical [place] [address] 10/29/2023 10:15 AM EDT Procedure [place] [address] 11/01/2023 5:00 PM EDT Office Visit Gastroenterology at [place] [phone] Selene Browning, PhD [facility] [place] [address] 11/22/2023 4:40 PM EDT Office Visit Cardiology at [address] [phone] Porsha Mcdaniels MD [facility] [place] [address] 12/13/2023 10:00 AM EDT Clinical Support [place] [address] Lucero Romero, [place] [place] [address] documented as of this encounter Procedures Procedure Name Priority Date/Time Associated Diagnosis Comments ECG SCAN Routine 12/30/2021 documented in this encounter Results * Scan Doc: ECG (12/30/2021) Historical Provider MD FLEMING MGR SCAN EX T ORDR/RSLT documented in this encounter Visit Diagnoses Not on filedocumented in this encounter Care Teams Filing Or Registry Clerk Relationship Specialty Start Date End Date Polo Pearce PA Sb [address] [place] [address] PCP - General Internal Medicine 06/09/21 documented as of this encounter
--- OUTSIDE RECORDS SUMMARY | 2023-10-22 00:44 | XMS_ITS | Encounter Summary ---
Author Organization [facility] Address [facility] [place] [address] Care Team Providers Care Informatica Name Role Phone Polo Pearce Primary Care Provider [phone] Encounter Details Date Type Department Care Team (Late st Contact Info) Description 09/17/2021 Telephone Cardiology at [address] [place] [address] Jaspreet Kinsey MD [facility] [place] [address] Social History Tobacco Use Types Packs/Day Years [...] Please call on her work phone @ [phone]. Or you may leave a message on her cell phone @ [phone] documented in this encounter Plan of Treatment Upcoming Encounters Date Type Department Care Team (Late st Contact Info) Description 10/26/2023 4:00 PM EDT Office Visit Cardiology at [address] [address] Jaspreet Kinsey MD [facility] [place] [address] 10/28/2023 9:00 AM EDT Office [place] [address] 10/29/2023 10:00 AM EDT Clinical [place] [address] 10/29/2023 10:15 AM EDT Procedure [place] [address] 11/01/2023 5:00 PM EDT Office Visit Gastroenterology at [place] [phone] Selene Browning, PhD [facility] [place] [address] 11/22/2023 4:40 PM EDT Office Visit Cardiology at [address] [phone] Porsha Mcdaniels MD [facility] [place] [address] 12/13/2023 10:00 AM EDT Clinical Support [place] [phone] Lucero Romero, [place] [facility] [place] [address] documented as of this encounter Visit Diagnoses Not on filedocumented in this encounter Care Teams Informatica Relationship Specialty Start Date End Date Polo Pearce PA Sb [address] [place] [address] PCP - General Internal Medicine 06/09/21 documented as of this encounter
--- OUTSIDE RECORDS SUMMARY | 2023-10-22 00:44 | XMS_ITS | Encounter Summary ---
Author Organization [facility] Address [facility] [place] [address] Care Team Providers Care Bag Machine Set Up Operator Name Role Phone Polo Pearce Primary Care Provider [phone] Encounter Details Date Type Department Care Team (Late st Contact Info) Description 06/13/2021 Telephone Cardiology at [address] [address] Chayo Dominguez PA [facility] [place] [address] Social History Tobacco Use Types Packs/Day Years [...] Referring Provider: Dr. Gale Trinh Patient Location: [facility] See Dr. Mejia's telephone encounter note for [...] Of note, she was recently admitted to [facility] for evaluation of angina and discharged 06/08/21. At that time she initially presented to [facility] where she was noted to have a troponin I of 406 which was flat at 411 on repeat and an elevated BNP. EKG showed nonspecific ST changes in the inferolateral leads. She was transferred to [facility] for further evaluation where she underwent a [...] management. Chayo Chappell PA-C Cardiovascular Medicine Pager [phone] 06/13/2021 documented in this encounter Plan of Treatment Upcoming Encounters Date Type Department Care Team (Late st Contact Info) Description 10/26/2023 4:00 PM EDT Office Visit Cardiology at [address] [place] [address] Jaspreet Kinsey MD [facility] [place] [address] 10/28/2023 9:00 AM EDT Office [place] [address] 10/29/2023 10:00 AM EDT Clinical [place] [address] 10/29/2023 10:15 AM EDT Procedure [place] [address] 11/01/2023 5:00 PM EDT Office [place] [address] Selene Browning, PhD [facility] [place] [address] 11/22/2023 4:40 PM EDT Office Visit Cardiology at [address] [phone] Porsha Mcdaniels MD [facility] [place] [address] 12/13/2023 10:00 AM EDT Clinical [place] [phone] [facility] [place] [address] documented as of this encounter Visit Diagnoses Not on filedocumented in this encounter Care Teams Bag Machine Set Up Operator Relationship Specialty Start Date End Date Polo Pearce PA Sb [address] [place] [address] PCP - General Internal Medicine 06/09/21 documented as of this encounter
--- OUTSIDE RECORDS SUMMARY | 2023-10-22 00:44 | XMS_ITS | Encounter Summary ---
Author Organization [facility] [place] [address] Care Team Providers Care Environmental Engineer Scientist Name Role Phone Polo Pearce Primary Care Provider [phone] Encounter Details Date Type Department Care Team (Late st Contact Info) Description 06/12/2021 External Results [place] [address] Social History Tobacco Use Types Packs/Day Years [...] PM EDT Office Visit Cardiology at [address] [place] [address] Jaspreet Kinsey MD [facility] [place] [address] 10/28/2023 9:00 AM EDT Office [place] [address] 10/29/2023 10:00 AM EDT Clinical [place] [address] 10/29/2023 10:15 AM EDT Procedure [place] [address] 11/01/2023 5:00 PM EDT Office Visit [place] [phone] Selene Browning, PhD [facility] [place] [address] 11/22/2023 4:40 PM EDT Office Visit Cardiology at [address] [phone] Porsha Mcdaniels MD [facility] [place] [address] 12/13/2023 10:00 AM EDT Clinical Support [place] [phone] Lucero Romero, [place] [facility] [place] [address] documented as of this encounter Procedures Procedure Name Priority Date/Time Associated Diagnosis Comments ECG SCAN Routine 06/12/2021 documented in this encounter Results * Scan Doc: ECG (06/12/2021) Historical Provider MD FLEMING MGR SCAN EX T ORDR/RSLT documented in this encounter Visit Diagnoses Not on filedocumented in this encounter Care Teams Environmental Engineer Scientist Relationship Specialty Start Date End Date Polo Pearce PA Sb [address] [place] [address] PCP - General Internal Medicine 06/09/21 documented as of this encounter
--- OUTSIDE RECORDS SUMMARY | 2023-10-22 00:44 | XMS_ITS | Encounter Summary ---
Author Organization [facility] [place] [address] Care Team Providers Care Bi Consultant Name Role Phone Polo Pearce Primary Care Provider [phone] Reason for Visit * Auth/Cert Specialty Diagnoses / Procedures Referred By Jayant harris Referred To Contact Diagnoses NSTEMI (non-ST elevated myocardial infarction) Chest Pain Procedures EMERGENCY IPI Sobeida Jimenez MD [facility] [place] [address] [facility] Referral ID Status Reason Start Date Expiration Date Visits Re quested Visits Authorized [id number] 1 1 Encounter Details Date Type Department Care Team (Latest Contact Info) Description 12/30/2021 10:41 PM EDT - 01/01/2022 2:24 PM EDT Hospital Encounter [place] [address] Sobeida Jimenez MD [facility] [address] [place], [place] [id number] SVT (supraventricular tachycardia); Non-ST elevation IA (NSTEMI); NSTEMI (non-ST elevated myocardial infarction); Acute [...] Loida Madrigal Patient Age: 51 y.o. Language: Estonian Race: White Ethnicity: Not nor Admit date: 12/30/2021 Discharge date and time: 01/01/2022 Attending Physician: Sobeida Jimenez MD Discharge Physician: Sobeida Jimenez MD ID: Loida Madrigal is a 51 y.o. female w/ PMH of AVNRT, HFpEF, asthma, MARYLOU, obesity, mild PAH([facility] 06/2021) who presents today in transfer [...] JOCY Franco [address] / [facility] [address] Pending Studies and Lab Data: Official Ankle [...] ejection fraction 05/2021: subacute, presented to [facility] with RUQ pain, weight gain, and progressive dyspnea. Noted to caryr most fluid in abdomen ??? Restless legs ??? Non-ST elevation IA (NSTEMI) ??? Asthma ??? Rhinitis, nonallergic, chronic [...] plavix 600 with plan to transfer to [facility] for furthermanagement. Pertinent prior studies below: ?? [...] Type II Patient initially presented to the [facility] ED on 12/30 with chest pain. Initial [...] 12/31/2021 06:52 AMBP: 109/62 mmHg Patient Location: [facility]^C450^B : 1970 Height: 163 cm Account: [id number] Age: 51 yrs Weight: 100 kg Gender: Female BSA: 2.0 m2 Ordering Physician: SOBEIDA JIMENEZ Referring Physician: KARIN ESPINOSA Performed By: HAIM Harris Reason For Study: Acute on chronic heart failure with preserved ejection fraction Exam Location: [facility]. Interpretation Summary -Left ventricle is of [...] the prior study from 06/09/21 ?? Procedure Complete-[id number]. Satisfactory quality. There is sinus bradycardia. ?? [...] have questions please contact the health care taker that requested your imaging first. Electronically signed by: Olive Barrera MD, [facility] ([phone]), at 01/01/2022 1:56 PM Discharge Conditions/Prognosis: Upon [...] scheduled with both your PCP and your investigator internal revenue in the outpatient setting within the next [...] appointments: During 8am-5pm Wednesday through Wednesday call [phone] to speak with a nurse in the cardiology clinic All other times call [phone] and ask to speak to the manager environmental services out of town collection clerk. Follow up Appointments: Future Appointments Date Time Provider Department Center 01/21/2022 9:00 AM Jaspreet Kinsey MD [facility] 01/12/2022, Appointment with Mr. Polo Pearce Donation Worker: Dr. Jaspreet Kinsey PCP: JOCY Franco at [phone] Your Inpatient Doctor(s) at [facility]: Sobeida Jimenez MD - Attending physician Dr. Paris Guerra MD - Resident Physician Dr. Yoselin Gómez DO, Resident Physician Dr. Edwin Mcghee MD, Fellow Physician Your Primary Care Provider: JOCY Franco DR [facility] [address] For questions regarding issues relating to your hospitalization on the Hospital Medicine Service, please contact your inpatient physician through the [facility] Principal Statistical Programmer [phone]. Issues after hours and on weekends will be handled by the Hospitalist staff on-call. General Instructions None Future Appointments and Orders Future Appointments and Orders Future Appointments Provider Department Dept Phone 01/21/2022 9:00 AM Jaspreet Kinsey MD Cardiology at [place] Arrive at: [facility] [address] [phone] Inpatient Provider Contact Information: Deven Guerra Jr, MD Internal Medicine, PGY-3 [facility], pager [phone] Discharge References/Attachments: Discharge References/Attachments None documented in [...] scheduled with both your PCP and your investigator internal revenue in the outpatient setting within the next [...] appointments: During 8am-5pm Wednesday through Wednesday call [phone] to speak with a nurse in the cardiology clinic All other times call [phone] and ask to speak to the manager environmental services out of town collection clerk. Follow up Appointments: Future Appointments Date Time Provider Department Center 01/21/2022 9:00 AM Jaspreet Kinsye MD [facility] 01/12/2022, Appointment with Mr. Polo Pearce Donation Worker: Dr. Jaspreet Kinsey PCP: JOCY Franco at [phone] Your Inpatient Doctor(s) at [facility]: Sobeida Jimenez MD - Attending physician Dr. Paris Guerra MD - Resident Physician Dr. Yoselin Gómez DO, Resident Physician Dr. Edwin Mcghee MD, Fellow Physician Your Primary Care Provider: JOCY Franco [address] / [facility] [address] For questions regarding issues relating to your hospitalization on the Hospital Medicine Service, please contact your inpatient physician through the [facility] Principal Statistical Programmer [phone]. Issues after hours and on weekends will [...] as needed. fluticasone propionate (FLONASE) 50 mcg/actuation Damar, Suspension 1 spray by Each Nare route [...] 1970 PCP: JOCY Franco PCP phone number: [phone] Date of Admission: 12/30/2021 ( Hospital Day 1 day ) Attending:Sobeida Jimenez MD ID: Loida Madrigal is a 51 y.o. female w/ PMH of AVNRT, HFpEF, asthma, MARYLOU, obesity, mild PAH([facility] 06/2021) who presents today in transfer for evaluation of chest pain. Patient Active Problem List Diagnosis ??? NSTEMI (non-ST elevated myocardial infarction) ??? 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 Obesity ??? Dyslipidemia ??? Obstructive sleep apnea syndrome ??? Insomnia ??? (HFpEF) heart failure with preserved ejection fraction Overview Note: 05/2021: subacute, presented to [facility] with RUQ pain, weight gain, and progressive dyspnea. Noted to caryr most fluid in abdomen ??? Restless legs ??? Non-ST elevation IA (NSTEMI) ??? Asthma ??? Rhinitis, nonallergic, chronic [...] plavix 600 with plan to transfer to [facility] for furthermanagement. Pertinent prior studies below: ?? 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 ??? fluticasone propionate (FLONASE) 50 mcg/actuation Damar, Suspension 1 spray by Each Nare route [...] ??? heparin (porcine) infusion 1,000 Units/hr (12/30/21 6825) PRN Meds: lidocaine, nitroGLYcerin, sodium chloride 0.9 [...] CP and palpitations LH 2019: normal cors [facility] 2021: mild PHTN, mPA 24, CI [...] Pt up to toilet. Diet order placed, cardiac/[facility] diet. PRN ibuprofen ordered and given to [...] COVID test: Lab Results Component Value Date [id number] Not Detected 06/13/2021 Present on Admission: ??? 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 Current Living Arrangements: home/apartment/condo. Accessibility Concerns:no concerns. Current DME: none [address] [facility] [address] Social & Family Supports: Extended Emergency Contact [...] private car when medically ready. Registered Nurse Product Management Internship / Copy Coordinator will continue to follow patient???s progress and remain available if situation changes for coordination of care, psychosocial support and/or discharge planning. Office of Care Management documented in this encounter Plan of Treatment Upcoming Encounters Date Type Department Care Team (Late st Contact Info) Description 10/26/2023 4:00 PM EDT Office Visit Cardiology at [address] [place] [phone] Jaspreet Kinsey MD [facility] [place] [address] 10/28/2023 9:00 AM EDT Office [place] [address] 10/29/2023 10:00 AM EDT Clinical [place] [address] 10/29/2023 10:15 AM EDT Procedure [place] [address] 11/01/2023 5:00 PM EDT Office [place] [phone] Selene Browning, PhD [facility] [place] [address] 11/22/2023 4:40 PM EDT Office Visit Cardiology at [address] [phone] Porsha Mcdaniels MD [facility] [place] [address] 12/13/2023 10:00 AM EDT Clinical [place] [address] [facility] [place] [address] documented as of this encounter Procedures Procedure [...] have questions please contact the health care taker that requested your imaging first. ? Electronically signed by: Olive Barrera MD, [facility] ([phone]), at 01/01/2022 1:56 PM Narrative 01/01/2022 1:56 [...] who have questions please contactthe health care taker that requested your imaging first. Sobeida Jimenez MD IMG DX ORDERABLES * Magnesium (01/01/2022 8:56 AM EDT) Magnesium 0.96 0.69 - 1.07 mmol/L [facility] Blood 01/01/2022 8:56 AM EDT 01/01/2022 9:19 AM EDT Narrative Resulting Agency Comment Spec In Lab Sobeida Jimenez MD CHEMISTRY ORDERABLES [facility] [place] [address] * Differential, Automated (01/01/2022 4:15 AM EDT) Pathologist [facility] Neutrophil % 59.8 % [facility] Neutrophil Absolute 3.72 1.70 - 6.10 x10(3)/[facility] Lymph % 26.0 % [facility] Lymphocytes Abs 1.6 0.9 - 3.2 x10(3)/[facility] Monocyte % 8.7 % [facility] Monocyte Abs 0.5 0.3 - 0.9 x10(3)/[facility] Eos % 4.5 % [facility] Eosinophils Abs 0.3 0.0 - 0.4 x10(3)/[facility] Basophil % 0.8 % [facility] Baso Absolute 0.0 0.0 - 0.1 x10(3)/[facility] Immature Gran % 0.20 % [facility] Comment: Immature granulocytes(IG's)percentage and absolute count will include metamyelocytes, myelocytes, and promyelocytes. Blood smears from CBCs yielding IG's will be scanned manually for concordance. If this scan disagrees with the automated IG or if promyelocytes are noted, a manual differential will be performed. Immature Gran Absolute 0.01 0.00 - 0.04 x10(3)/[facility] Blood 01/01/2022 4:15 AM EDT 01/01/2022 4:23 AM EDT Narrative Resulting Agency Comment Spec In Lab Lorna Haider MD HEMATOLOGY ORDERABL ES [facility] [place] [address] * Hemogram (01/01/2022 4:15 AM EDT) Pathologist [facility] White Blood Cell 6.2 4.0 - 9.5 x10(3)/[facility] Red Blood Cell 4.43 4.00 - 5.21 x10(6)/[facility] Hemoglobin 13.9 11.7 - 15.5 g/dL [facility] Hematocrit 41.3 35.7 - 45.8 % [facility] Mean Cell Volume 93.2 82.6 - 94.4 fL [facility] Mean Cell Hemoglobin 31.4 27.1 - 32.0 pg [facility] Mean Cell Hemoglobin Concentration 33.7 31.7 - 35.0 g/dL [facility] Platelet 204 145 - 357 x10(3)/[facility] RDW Standard Deviation 43.4 37.0 - 46.0 fL [facility] RDW coefficient of variation 12.6 11.5 - 14.1 % [facility] Mean Platelet Volume 10.6 7.6 - 12.9 fL [facility] NRBC% auto 0.0 % [facility] NRBC Absolute 0.000 0.000 - 0.000 x10(3)/[facility] Blood 01/01/2022 4:15 AM EDT 01/01/2022 4:23 AM EDT Narrative Resulting Agency Comment Spec In Lab Lorna Haider MD HEMATOLOGY ORDERABL ES [facility] [place] [address] * (ABNORMAL) Basic Metabolic Panel (non-fasting) (01/01/2022 4:15 AM EDT) Glucose 103 65 - 199 mg/dL [facility] Comment:Diabetes: >=200 mg/d L plus symptoms Blood Urea Nitrogen 26(H) 8 - 18 mg/dL [facility] [...] [facility] Carbon Dioxide 15(L) 22 - 31 mmol/L [facility] Anion Gap 13 5 - 15 mmol/L [facility] Calcium 8.9 8.5 - 10.5 mg/dL [facility] Est Glomerular Filtration Rate 65 >=60 mL/min/1. 73 m?? [facility] [...] CHEMISTRY ORDERABLES [facility] [place] [address] * ECHO COMPLETE (12/31/2021 8:02 AM EDT) Anatomical Region Laterality Modality Cardiac Other 12/31/2021 6:52 AM EDT Narrative 12/31/2021 8:30 AM EDT ? Echocardiogram Report Name: LOIDA MADRIGAL ? Study Date: 12/31/2021 06:52 AMBP: 109/62 mmHg ? Patient Location: [facility]^C450^B : 1970 ? Height: 163 cm ? Account: [id number] Age: 51 yrs ? Weight: 100 kg Gender: Female ?BSA: 2.0 m2 Ordering Physician: SOBEIDA JIMENEZ Referring Physician: KARIN ESPINOSA Performed By: HAIM Harris Reason For Study: Acute on chronic heart failure with preserved ejection fraction Exam Location: [facility]. Interpretation Summary -Left ventricle is of [...] to the prior study from 06/09/21 Procedure Complete-[id number]. Satisfactory quality. There is sinus bradycardia. Left [...] Study Date: 206:52 AMBP: 109/62 mmHg Patient Location:[facility]^C450^B : 1970 Height: 163 cm Account: [id number] Age: 51 yrs Weight: 100 kg Gender: Female BSA: 2.0 m2 Ordering Physician: SOBEIDA JIMENEZ Referring Physician: KARIN ESPINOSA Performed By: HAIM Harris Reason For Study: Acute on chronic heart failure with preserved ejectionfraction Exam Location: [facility]. Interpretation Summary -Left ventricle is of [...] to the prior study from 06/09/21 Procedure Complete-[id number]. Satisfactory quality. There is sinus bradycardia. Left [...] 7:01 AM EDT) UF Heparin 0.43 IU/mL [facility] Comment: [...] Performing Organization Address [facility] Co de Phone Number [facility] [place] [address] * T4, free (12/31/2021 7:01 AM EDT) Free T4 1.16 0.93 - 1.70 ng/dL [facility] Comment: Reference Interval (ng/dL): Females: ??First Trimester: 0.97-1.68 ??Second Trimester: 0.77-1.51 ??Third Trimester: 0.77-1.49 Blood 12/31/2021 7:01 AM EDT 12/31/2021 7:11 AM EDT Narrative Resulting Agency Comment Spec In Lab Sobeida Jimenez MD CHEMISTRY ORDERABLES Performing Organization Address [facility] de Phone Number [facility] [place] [address] * (ABNORMAL) Troponin (12/31/2021 3:28 AM EDT) [facility] Troponin-T, High Sensitivity 21(H) <=14 ng/L [facility] [...] troponin value can be found in the [facility] Laboratory Test Catalog Troponin - [facility] Test Catalog Reference: Fourth [place] Definition of Myocardial Infarction. Journal of the [place] College [employer]iology 2018;72:5420-2670 Blood 12/31/2021 3:28 AM EDT 12/31/2021 4:31 AM EDT Narrative Resulting Agency Comment Spec In Lab Sobeida Jimenez MD CHEMISTRY ORDERABLES Performing Organization Address City/[facility]/ZIP Co de Phone Number [facility] [place] [address] * EKG 12 Lead (12/31/2021 3:23 AM EDT) Ventricular rate 44 BPM MUSE SYSTEM Atrial Rate 44 BPM MUSE SYSTEM P-R Interval 190 ms MUSE SYSTEM QRS Duration 86 ms MUSE SYSTEM Q-T Interval 562 ms MUSE SYSTEM QTC Calculated (Bezet) 480 ms MUSE SYSTEM Calculated P [place] 32 degrees MUSE SYSTEM Calculated R [place] 58 degrees MUSE SYSTEM Calculated T [place] 24 degrees MUSE SYSTEM INTERPRETATION Marked sinus bradycardia Possible Lateral infarct (cited on or before 30-DEC-2021) Nonspecific ST and T wave abnormality Prolonged QT Abnormal ECG When compared with ECG of 30-DEC-2021 22:45, No significant change was found I personally reviewed the tracing and edited the fellows interpretation Confirmed by fellow MD Rosalinda, Alejandro ([id number]) on 12/31/2021 9:13:46 PM Confirmed by MD Angelo Danette ([id number]) on 01/01/2022 7:24:12 AM MUSE SYSTEM 12/31/2021 3:23 AM EDT 01/01/2022 7:24 AM EDT Sobeida Jimenez MD ECG ORDERABLES Performing Organization Address City/[facility]/ZIP Co de Phone Number MUSE SYSTEM * Heparin (unfractionated) Level (12/31/2021 12:20 AM EDT) Pathologist [facility] UF Heparin 0.40 IU/mL [facility] Comment: [...] Lab Sobeida Jimenez MD HEMATOLOGY ORDERABLE S [facility] [place] [address] * Differential, Automated (12/31/2021 12:20 AM EDT) [facility] Neutrophil % 57.0 % [facility] Neutrophil Absolute 4.48 1.70 - 6.10 x10(3)/[facility] Lymph % 32.4 % [facility] Lymphocytes Abs 2.6 0.9 - 3.2 x10(3)/[facility] Monocyte % 6.4 % [facility] Monocyte Abs 0.5 0.3 - 0.9 x10(3)/[facility] Eos % 3.3 % [facility] Eosinophils Abs 0.3 0.0 - 0.4 x10(3)/[facility] Basophil % 0.5 % [facility] Baso Absolute 0.0 0.0 - 0.1 x10(3)/[facility] Immature Gran % 0.40 % [facility] [...] x10(3)/[facility] Blood 12/31/2021 12:2 0 AM EDT 12/31/2021 12:41 AM EDT Narrative Resulting Agency Comment Spec In Lab Lorna Haider MD HEMATOLOGY ORDERABL ES [facility] [place] [address] * Hemogram (12/31/2021 12:20 AM EDT) White Blood Cell 7.9 4.0 - 9.5 x10(3)/[facility] Red Blood Cell 4.24 4.00 - 5.21 x10(6)/[facility] Hemoglobin 13.3 11.7 - 15.5 g/dL [facility] Hematocrit 39.1 35.7 - 45.8 % [facility] Mean Cell Volume 92.2 82.6 - 94.4 fL [facility] Mean Cell Hemoglobin 31.4 27.1 - 32.0 pg [facility] Mean Cell Hemoglobin Concentration 34.0 31.7 - 35.0 g/dL [facility] Platelet 209 145 - 357 x10(3)/[facility] RDW Standard Deviation 43.2 37.0 - 46.0 fL [facility] RDW coefficient of variation 12.8 11.5 - 14.1 % [facility] Mean Platelet Volume 11.2 7.6 - 12.9 fL [facility] NRBC% auto 0.0 % [facility] NRBC Absolute 0.000 0.000 - 0.000 x10(3)/mcL [facility] Blood 12/31/2021 12:2 0 AM EDT 12/31/2021 12:41 AM EDT Narrative Resulting Agency Comment Spec In Lab Lonra Haider MD HEMATOLOGY ORDERABL ES [facility] [place] [address] * (ABNORMAL) Troponin (12/31/2021 12:20 AM EDT) Troponin-T, High Sensitivity 19(H) <=14 ng/L [facility] [...] troponin value can be found in the [facility] Laboratory Test Catalog Troponin - [facility] Test Catalog Reference: Fourth [place] Definition of Myocardial Infarction. Journal of the [place] College of Cardiology 2018;72:7485-6821 Blood 12/31/2021 12:2 0 AM EDT 12/31/2021 12:41 AM EDT Narrative Resulting Agency Comment Spec In Lab Sobeida Jimenez MD CHEMISTRY ORDERABLES [facility] [place] [address] * (ABNORMAL) Hemoglobin A1c (12/31/2021 12:20 AM EDT) Hemoglobin A1c 5.7(H) 4.3 - 5.6 % [facility] [...] 1, S67-74 Estimated Average Glucose 118 mg/dL [facility] [...] on the ADA website. Luis PANIAGUA, Ema Lane, Charity Melgar, et al. ??Translating the A1C assay into estimated average glucose values. ??Diabetes Care 2008:31(8):8481-8190. Blood 12/31/2021 12:2 0 AM EDT 12/31/2021 12:42 AM EDT Narrative Resulting Agency Comment Spec In Lab Sobeida Jimenez MD CHEMISTRY ORDERABLES [facility] [place] [address] * Lipid Panel (Reflex Direct LDL) (12/31/2021 12:20 AM EDT) Cholesterol, Total 122 mg/dL [facility] Comment: Lower Risk: <200 mg/dL Average Risk: 200-239 mg/dL Higher Risk: >ws=649 mg/dL Triglyceride 111 mg/dL [facility] Comment: Average Risk/Lower Risk: <150 mg/dL Borderline High Risk: 150-199 mg/dL High Risk: 200-499 mg/dL Very High Risk: >lf=837 mg/dL HDL Cholesterol 35 mg/dL [facility] Comment: Males: ?? Higher Risk: <40 mg/dL Females: ?? Higher Risk: <50 mg/dL LDL Cholesterol 65 mg/dL [facility] Comment: Lowest Risk: <100 mg/dL Lower Risk: 100-129 mg/dL Borderline High Risk: 130-159 mg/dL High Risk: 160-189 mg/dL Very High Risk: >vq=555 mg/dL Cholesterol/HDL Ratio 3.5 ratio [facility] Lipid Interpretation See Note [facility] Comment: Lipid management should be guided by a patient? s ASCVD risk, goals and preferences. ACC/AHA Guidelines recommend high intensity statin if clinical ASCVD or LDL greater than or equal to 190 mg/dL. http://[email or web address].com/SDJ-WIK-Brewcrpfa Adults aged 40-75 with LDL 70-189 mg/dL should have their 10 year ASCVD risk estimated with the ACC/AHA ASCVD risk machine setter http://tools.acc.org/FNQIA-Ggcu-Mofltscyu/ Statin should be discussed if risk greater [...] Jimenez MD CHEMISTRY ORDERABLES Performing Organization Address [facility] Co de Phone Number [facility] [place] [address] * (ABNORMAL) APTT (12/31/2021 12:20 AM EDT) Partial Thromboplastin Time 90(H) 25 - 37 sec [facility] [...] Performing Organization Address [facility] Co de Phone Number [facility] [place] [address] * Prothrombin Time (12/31/2021 12:20 AM EDT) Prothrombin Time 12.5 9.4 - 12.5 sec [facility] International Normalization Ratio 1.1 [facility] Comment: [...] [facility]/ZIP Co de Phone Number [facility] [place] [address] * (ABNORMAL) pro-Brain Natriuretic Peptide (12/31/2021 12:20 AM EDT) NT-proBNP 2,515(H) <=124 pg/mL [facility] Blood 12/31/2021 12:2 0 AM EDT 12/31/2021 12:41 AM EDT Narrative Resulting Agency Comment Spec In Lab Sobeida Jimenez MD CHEMISTRY ORDERABLES Performing Organization Address [facility] Co de Phone Number [facility] [place] [address] * (ABNORMAL) TSH (12/31/2021 12:20 AM EDT) Thyroid Stimulating Hormone 7.36(H) 0.27 - 4.20 mcIU/mL [facility] Comment: Reference Interval (mcIU/mL): Females: ??First Trimester: 0.23-3.88 ??Second Trimester: 0.22-3.90 ??Third Trimester: 0.44-4.66 Blood 12/31/2021 12:2 0 AM EDT 12/31/2021 12:41 AM EDT Narrative Resulting Agency Comment Spec In Lab Sobeida Jimenez MD CHEMISTRY ORDERABLES Performing Organization Address [facility]/ZIP Co de Phone Number [facility] [place] [address] * Phosphorus (12/31/2021 12:20 AM EDT) Phosphorus 3.5 2.5 - 4.5 mg/dL [facility] Blood 12/31/2021 12:2 0 AM EDT 12/31/2021 12:41 AM EDT Narrative Resulting Agency Comment Spec In Lab Sobeida Jimenez MD CHEMISTRY ORDERABLES Performing Organization Address [facility] Co de Phone Number [facility] [place] [address] * Magnesium (12/31/2021 12:20 AM EDT) Magnesium 0.87 0.69 - 1.07 mmol/L [facility] Blood 12/31/2021 12:2 0 AM EDT 12/31/2021 12:41 AM EDT Narrative Resulting Agency Comment Spec In Lab Sobeida Jimenez MD CHEMISTRY ORDERABLES Performing Organization Address [facility] Co de Phone Number [facility] [place] [address] * (ABNORMAL) Basic Metabolic Panel (non-fasting) (12/31/2021 12:20 AM EDT) Glucose 88 65 - 199 mg/dL [facility] Comment:Diabetes: >=200 mg/d L plus symptoms Blood Urea Nitrogen 22(H) 8 - 18 mg/dL [facility] [...] [facility] Carbon Dioxide 17(L) 22 - 31 mmol/L [facility] Anion Gap 13 5 - 15 mmol/L [facility] Calcium 8.5 8.5 - 10.5 mg/dL [facility] Est Glomerular Filtration Rate 72 >=60 mL/min/1. 73 m?? [facility] [...] CHEMISTRY ORDERABLES [facility] [place] [address] documented in this encounter Visit Diagnoses Diagnosis SVT (supraventricular tachycardia) Other specified cardiac dysrhythmias Non-ST elevation IA (NSTEMI) Acute myocardial infarction, unspecified site, episode [...] Patricia Jacobs RN)1612 (Given - Provider: Angelina Oquendo RN) DULoxetine DR (Cymbalta) capsule 60 mg [...] Jacobs RN)0940 (Given - Provider: Angelina Oquendo RN)2100 (Given - Provider: Patricia Jacobs RN) 09 (Given - Provider: Angelina Oquendo RN) sodium chloride 0.9 % (flush) (BD PosiFlush Normal Saline 0.9) flush 5 mL (CANCELED) 5 mL, Intravenous, 2 TIMES DAILY, First dose on Wed12/30/21 at 2345, Until Discontinued, Routine 0218 (Given - Provider: Patricia Jacobs, RN) topiramate (Topamax) tablet 100 mg 100 mg, Oral, NIGHTLY, First dose on Wed12/31/21 at 2100, Until Discontinued, DO NOT SPLIT, CRUSH OR OPEN, Routine 2042 (Given - Provider: Patricia Jacobs, ERWIN) traZODone (Desyrel) tablet 50 mg 50 mg, Oral, NIGHTLY, First dose (after last modification) on Wed12/31/21 at 0230, Until Discontinued, Routine 224 (Given - Provider: Patricia Jacobs, ERWIN)2031 (Given - Provider: Patricia Jacobs RN) Continuous [...] Routine documented in this encounter Care Teams Bi Consultant Relationship Specialty Start Date End Date Polo Pearce PA [address] [place] [address] PCP - General Internal Medicine 06/09/21 documented as of this encounter
--- OUTSIDE RECORDS SUMMARY | 2023-10-22 00:44 | XMS_ITS | Encounter Summary ---
Author Organization [facility] Address [facility] [place] [address] Care Team Providers Care Drill Press Hand Name Role Phone Polo Pearce Primary Care Provider [phone] Reason for Visit * Reason Comments Congestive Heart Failure Encounter Details Date Type Department Care Team (Late st Contact Info) Description 03/16/2022 3:20 PM EST Office Visit Cardiology at [address] [address] Jaspreet Kinsey MD [facility] [place] [address] Heart failure with preserved ejection fraction, unspecified [...] [facility], but shortly thereafter started [...] Rfl: ??? fluticasone propionate (FLONASE) 50 mcg/actuation [place], Suspension, 1 spray by Each Nare routedaily., [...] of a presentation. If symptoms do not arvaind with adequate diuresis, will perform CCTA - Diuresis: bumex 1 qd - Cardioprotection: - SGLT2i: jardiance - MRA: aldactone 25 SVT (supraventricular tachycardia) For ablation later this month - continue toprol 25; can likely d/c after ablation RTC pending response to bumex Jaspreet Kinsey MD documented in this encounter Miscellaneous Notes * Assessment & Plan Note - Jasrpeet Kinsey MD - 03/16/2022 3:43 PM EST [...] PM EDT Office Visit Cardiology at [address] [place] [address] Jaspreet Kinsey MD [facility] [place] [address] 10/28/2023 9:00 AM EDT Office [place] [address] 10/29/2023 10:00 AM EDT Clinical Support [place] [address] 10/29/2023 10:15 AM EDT Procedure [place] [address] 11/01/2023 5:00 PM EDT Office Visit [place] [phone] Selene Browning, PhD [facility] [place] [address] 11/22/2023 4:40 PM EDT Office Visit Cardiology at [address] [address] Porsha Mcdaniels MD [facility] [place] [address] 12/13/2023 10:00 AM EDT Clinical Support [place] [phone] Lucero Romero, ALVA [facility] [place] [address] documented as of this encounter Visit Diagnoses Diagnosis Heart failure with preserved ejection fraction, unspecified HF chronicity SVT (supraventricular tachycardia) Other specified cardiac dysrhythmias documented in this encounter Care Teams Drill Press Hand Relationship Specialty Start Date End Date Polo Pearce PA [address] [facility] [address] [place] [address] PCP - General Internal Medicine 06/09/21 documented as of this encounter
--- OUTSIDE RECORDS SUMMARY | 2023-10-22 00:44 | XMS_ITS | Encounter Summary ---
Author Organization [facility] Address [facility] [place] [address] Care Team Providers Care Inspector Ball Points Name Role Phone Polo Pearce Primary Care Provider [phone] Reason for Visit * Reason Onset Date Comments Chest Pain 03/11/2022 Encounter Details Date Type Department Care Team (Late st Contact Info) Description 03/11/2022 Telephone Cardiology at [address] [address] Jaspreet Kinsey MD [facility] [address] Chest Pain Social History Tobacco Use Types [...] URI symptoms Requesting discharge summary(s) from [facility] from this week. Plan: to determine the indication and goals for this follow up cardiology appointment. From consultation by [facility] with Vianey Mike on 03/10/2021: Patient's chest [...] and blood in urine. Her number is [phone] should you have any questions. I looked in the chart and looks like we still need those records documented in this encounter Plan of Treatment Upcoming Encounters Date Type Department Care Team (Late st Contact Info) Description 10/26/2023 4:00 PM EDT Office Visit Cardiology at [address] [address] Jaspreet Kinsey MD [facility] [place] [address] 10/28/2023 9:00 AM EDT Office [place] [address] 10/29/2023 10:00 AM EDT Clinical [place] [address] 10/29/2023 10:15 AM EDT Procedure [place] [address] 11/01/2023 5:00 PM EDT Office Visit Gastroenterology at [place] [phone] Selene Browning, PhD [facility] [place] [address] 11/22/2023 4:40 PM EDT Office [place] [address] Porsha Mcdaniels MD [facility] [place] [address] 12/13/2023 10:00 AM EDT Clinical Support Gastroenterology at [place] [phone] [facility] [place] [place] [address] documented as of this encounter Visit Diagnoses Not on filedocumented in this encounter Care Teams Inspector Ball Points Relationship Specialty Start Date End Date Polo Pearce PA [address] [place] [address] PCP - General Internal Medicine 06/09/21 documented as of this encounter
--- OUTSIDE RECORDS SUMMARY | 2023-10-22 00:45 | XMS_ITS | Encounter Summary ---
Author Organization [facility] [place] [address] Care Team Providers Care Senior Loss Control Specialist Name Role Phone Tim Rogers DNP Primary Care Provider [phone] Reason for Visit * Diagnostic Test (Routine) - Closed Specialty Diagnoses / Procedures Referred By Jayant harris Referred To Contact Cardiology Diagnoses Palpitations Procedures Ziopatch 48 Hrs-15 Days Beto Miller MD [facility] [place] [address] [facility] [place] [address] Referral ID Status Reason Start Date Expiration Date V isits Requested Visits Authorized [id number] Closed Specialty Service Requested 10/28/2020 03/07/2021 1 1 Encounter Details Date Type Department Care Team (Latest Contact Info) Description 10/28/2020 8:00 AM EDT - 10/28/2020 11:59 PM EDT Hospital Encounter Non-[place] [address] Beto Miller MD [facility] [place] [address] Palpitations Discharge Disposition: Home Social [...] as needed. fluticasone propionate (FLONASE) 50 mcg/actuation [place], Suspension 1 spray by Each Nare route [...] PM EDT Office Visit Cardiology at [address] [place] [address] Jaspreet Kinsey MD [facility] [place] [address] 10/28/2023 9:00 AM EDT Office Visit [place] [address] 10/29/2023 10:00 AM EDT Clinical Support [place] [address] 10/29/2023 10:15 AM EDT Procedure visit [place] [address] 11/01/2023 5:00 PM EDT Office [place] [phone] Selene Browning, PhD [facility] [place] [address] 11/22/2023 4:40 PM EDT Office Visit Cardiology at [address] [phone] Porsha Mcdaniels MD [facility] [place] [address] 12/13/2023 10:00 AM EDT Clinical [place] [phone] [facility] [place] [address] documented as of this encounter Procedures Procedure [...] Palpitations documented in this encounter Care Teams Senior Loss Control Specialist Relationship Specialty Start Date End Date Tim Rogers DNP PCP - General Family Medicine 08/28/19 06/08/21 documented as of this encounter
--- OUTSIDE RECORDS SUMMARY | 2023-10-22 00:45 | XMS_ITS | Encounter Summary ---
Author Organization [facility] Address [facility] [place] [address] Care Team Providers Care Strategic Account Director Name Role Phone Tim Rogers DNP Primary Care Provider [phone] Encounter Details Date Type Department Care Team (Latest Contact Info) Description 05/30/2021 9:30 AM EDT TH Visit (TeleHealth) [place] [address] Beto Miller MD [facility] [place] [address] Pleurisy with effusion; *History of COVID-19; Chronic [...] 05/30/21 PCP: Polo Pearce and Tim Rogers, GASKET NOTCHER [address] [place] [address] Pulmonary Background: ?? Cough, dyspnea, wheeze and [...] 1: 80, normal SSA, SSB, Alcantar antibody, CEO AND PRESIDENT antibody, ANCA, MPO antibody, [place]-3 antibody, serum RITCHIE, CBC, BMP and CRP [...] I reviewed the chest x-ray done at [facility] at the time which showed bilateral hazy opacities (mild). Debbie was not hospitalized for Covid and seemed to make a short-term recovery but by late April was again struggling. She describes increased cough and dyspnea and went to the emergency room at [facility] May 02. I do not have that [...] contact the patient and potentially involve local deflash and wash operator, Ryanne Wilson, who I do not think is ever seen the patient but may be a useful local resourcegiven Indira's complicated history Outpatient Established Visits Time MDM 83624 10-19 Straightforward 75432 20-29 X Low 79603 30-39 Moderate 30459 40-54 High 27751 + 15 mins Beto Miller MD documented in this encounter Plan of Treatment Upcoming Encounters Date Type Department Care Team (Late st Contact Info) Description 10/26/2023 4:00 PM EDT Office Visit Cardiology at [address] [place] [address] Jaspreet Kinsey MD [facility] [place] [address] 10/28/2023 9:00 AM EDT Office [place] [address] 10/29/2023 10:00 AM EDT Clinical [place] [address] 10/29/2023 10:15 AM EDT Procedure [place] [address] 11/01/2023 5:00 PM EDT Office [place] [phone] Selene Browning, [facility] [place] [address] 11/22/2023 4:40 PM EDT Office Visit Cardiology at [place] [phone] Porsha Mcdaniels MD [facility] [place] [address] 12/13/2023 10:00 AM EDT Clinical [place] [phone] [facility] [place] [address] documented as of this encounter Visit Diagnoses Diagnosis Pleurisy with effusion Unspecified pleural effusion History of COVID-19 Chronic cough Cough RAVI (dyspnea on exertion) Other dyspnea and respiratory abnormality documented in this encounter Care Teams Strategic Account Director Relationship Specialty Start Date End Date Tim Rogers DNP PCP - General Family Medicine 08/28/19 06/08/21 documented as of this encounter
--- OUTSIDE RECORDS SUMMARY | 2023-10-22 00:45 | XMS_ITS | Encounter Summary ---
[place] [address] Care Team Providers Care Circulation Supervisor Name Role Phone Tim Rogers DNP Primary Care Provider [phone] Encounter Details Date Type Department Care Team (Late st Contact Info) Description 05/30/2021 Telephone [place] [phone] Beryl Grider Social History Tobacco Use Types [...] Beryl Grider - 05/30/2021 11:10 AM EDTSummary: [facility] Per Dr. Miller via [place], needs images sent to our PACS system for mutual pt. Called PCP's (Polo Pearce) office at [facility] & Nayeli Martin in Radiology to Assist in sending images of chest x- ray from May 03 & CT scan of abdomen ( maybe chest) from May 27 to our PACS system with Pulm # [phone] opt 1 documented in this encounter Plan of Treatment Upcoming Encounters Date Type Department Care Team (Late st Contact Info) Description 10/26/2023 4:00 PM EDT Office Visit Cardiology at [address] [address] Jaspreet Kinsey MD [facility] [place] [address] 10/28/2023 9:00 AM EDT Office Visit [place] [address] 10/29/2023 10:00 AM EDT Clinical [place] [address] 10/29/2023 10:15 AM EDT Procedure [place] [address] 11/01/2023 5:00 PM EDT Office [place] [phone] Selene Browning, PhD [facility] [place] [address] 11/22/2023 4:40 PM EDT Office Visit Cardiology at [address] [phone] Porsha Mcdaniels MD [facility] [place] [address] 12/13/2023 10:00 AM EDT Clinical [place] [phone] [facility] [place] [address] documented as of this encounter Visit Diagnoses Not on filedocumented in this encounter Care Teams Circulation Supervisor Relationship Specialty Start Date End Date Tim Rogers DNP PCP - General Family Medicine 08/28/19 06/08/21 documented as of this encounter
--- OUTSIDE RECORDS SUMMARY | 2023-10-22 00:45 | XMS_ITS | Encounter Summary ---
Author Organization [facility] [place] [address] Care Team Providers Care Counter Hop Name Role Phone Tim Rogers DNP Primary Care Provider [phone] Encounter Details Date Type Department Care Team (Late st Contact Info) Description 06/06/2021 [place] [address] Paulo Ramachandran Jr., MD [facility] [place] [address] Social History Tobacco Use Types Packs/Day Years [...] provider/staff member. Referring Provider: Stuart Iyer MD [address] [address] [place] [address] Indira Roque 51 y.o. w / a [...] pt has been accepted for transfer to [facility] tomorrow. I asked the provider to contact us again if there is change in clinical status. documented in this encounter Plan of Treatment Upcoming Encounters Date Type Department Care Team (Late st Contact Info) Description 10/26/2023 4:00 PM EDT Office Visit Cardiology at [address] [address] Jaspreet Kinsey MD [facility] [place] [place] [address] 10/28/2023 9:00 AM EDT Office [place] [address] 10/29/2023 10:00 AM EDT Clinical [place] [address] 10/29/2023 10:15 AM EDT Procedure [place] [address] 11/01/2023 5:00 PM EDT Office Visit Gastroenterology at [place] [phone] Selene Browning, PhD [facility] [place] [address] 11/22/2023 4:40 PM EDT Office [place] [address] Porsha Mcdaniels MD [facility] [place] [address] 12/13/2023 10:00 AM EDT Clinical Support [place] [address] Lucero Romero, [facility] [place] [address] documented as of this encounter Visit Diagnoses Not on filedocumented in this encounter Care Teams Counter Hop Relationship Specialty Start Date End Date Tim Rogers DNP PCP - General Family Medicine 08/28/19 06/08/21 documented as of this encounter
--- OUTSIDE RECORDS SUMMARY | 2023-10-22 00:45 | XMS_ITS | Encounter Summary ---
Author Organization [facility] [place] [address] Care Team Providers Care County Manager Name Role Phone Polo Pearce Primary Care Provider [phone] Reason for Referral * Diagnostic Test (Routine) - Closed Specialty Diagnoses / Procedures Referred By Jayant harris Referred To Contact Cardiology Diagnoses Elevated blood pressure reading without diagnosis of hypertension Procedures Ziopatch 48 Hrs-15 Days Deja Zaidi PA [facility] [place] [address] [facility] [place] [address] Referral ID Status Reason Start Date Expiration Date V isits Requested Visits Authorized [id number] Closed Specialty Service Requested 06/09/2021 12/09/2021 1 1 Reason for Visit * Auth/Cert Specialty Diagnoses / Procedures Referred By Jayant harris Referred To Contact Diagnoses NSTEMI (non-ST elevated myocardial infarction) NSTEMI Procedures EMERGENCY OBSVO Referral ID Status Reason Start Date Expiration Date Visits Re quested Visits Authorized [id number] 1 1 Encounter Details Date Type Department Care Team (Latest Contact Info) Description 06/07/2021 3:49 PM EDT - 06/09/2021 3:25 PM EDT Hospital Encounter Intermediate Cardiac Care Unit [facility] [place] [address] Mario Hallman MD [facility] [address] YEUNG YARI [facility] NSTEMI (non-ST elevated myocardial infarction); Elevated [...] Loida Roque Patient Age: 51 y.o. Language: Belarusian Race: White Ethnicity: Not nor Admit date: [...] in a week and prn ?? Consider [place] as an out patient Inpatient Provider Contact Information: Dr. Mario Zaidi PA-C [phone] Discharge Diagnoses (Hospital Problems) and Secondary Diagnoses [...] change from prior in 08/2019. ?? Procedure Complete-48592. Image enhancement Definity was used for left [...] have questions please contact the health healthcare technician that requested your imaging first. CXR 06/08/2021 [...] hysterectomy, Insomnia, and migraine who presents to [facility] with RUQ pain that radiated to [...] 15. ?? Hospital Course: On admission to [facility], the patient had no complaints of chest pain or shortness of breath at rest.Telemetry was attached which showed normal sinus rhythm. Heparin drip was infusing. [facility] records/transfer records were reviewed. Baseline labs were checked and/or drawn. Chest Pain, GA ruled out, Echo showed preserved LVEF Given the patient's risk factors, chronic non-specific ST-T changes on ECG, and here at [facility] normaltroponin as well as reproducible chest tenderness [...] significant weight, however during her stay at [facility] now she lost only 0.9 kg, to [...] Follow up Appointments: PCP Tim Rogers APRN [phone] to see you in a week (patient to set this up) Mel placed on 06/09/2021 Cardiology to see in a month and prn. Dr. Kinsey to see the patient in [place] on July 23 at 920 am. Please call [phone] with questions. Home oxygen therapy: N/A Arrangements for VNA/home care: none Future Appointments and Orders Future Appointments and Orders Future Appointments Provider Department Dept Phone 07/23/2021 8:20 AM Jaspreet Kinsey MD Cardiology at [place] Arrive at: [facility] [address] [phone] Future Orders Complete By Expires Mel 48 Hrs-15 Days [[id number] CPT(R)] 06/09/2021 12/09/2021 Process Instructions: Scheduling Instructions: Questions: Does the patient have a pacemaker? If yes provide HI/LO settings: Apply for 7 or 14 days?: 14 Where will study be performed?: [facility] Clinics Basic Metabolic Panel (non-fasting) [LAB15 Custom] 06/16/2021 (Approximate) 06/09/2022 Process Instructions: INCLUDES: Calcium, BUN, Creat, GFR, Glucose, Lytes Scheduling Instructions: Comments: Questions: Discharge References/Attachments None documented in this encounter Discharge Instructions * Discharge Instructions* Deja Zaidi PA - 06/08/2021 1:56 PM EDT Return to work: One week Driving: as needed Follow up Appointments: PCP Tim Rogers APRN [phone] to see you in a week (patient to set this up) Mel placed on 06/09/2021 Cardiology to see in a month and prn. Dr. Kinsey to see the patient in [place] on July 23 at 920 am. Please call [phone] with questions. Home oxygen therapy: N/A Arrangements for VNA/home care: none documented in this encounter Medications at Time of Discharge Medication Sig Dispensed Refills Start Date End Date rOPINIRole (Requip) 1 mg Tablet Take 2 mg by mouth 2 times daily. 07/16/2020 loratadine (Claritin) 10 mg Tablet Take 10 mg by mouth daily as needed. fluticasone propionate (FLONASE) 50 mcg/actuation [place], Suspension 1 spray by Each Nare route [...] Nutrition Plan: Pt seen for Na2gm diet. Payroll Examiner informed pt of current diet orders and their restrictions. Pt expressed understanding and informed this writer editor that she tries to limit salt use at home. Payroll Examiner and pt discussed common sources of sodium (pre-prepared foods) and alternatives (fresh/frozen veggies). Provided educational material and encouraged pt to reach out with any questions or concerns. Will continue to monitor and follow up. Continue current diet. Monitor weight. Encourage good oral intake. Support and encouragement provided. Discussed case with Clinical Dietitian Active Orders Diet Daily Healthy Menu Choices/Cardiac diet ([facility]-Diet) 2 GM NA Frequency: Effective Now Number [...] nausea and no vomiting Last Bowel Movement: (BAR POINTER) Patient education / questions: provided diet order education and patient with good understanding, written education and contact information provided and all nutrition related questions answered at this time Nutrition services to follow weekly through hospital course unless consulted in the interim. Rocio Rosenthal Pager: [phone] * Deja Zaidi PA - 06/09/2021 9:14 AM EDT Inpatient Cardiology Discharge Day Note Patient Name: Loida Roque Service: GROUND WATER CONTRACTOR / PA Responsible Attending: Mario Hallman MD [...] (from the past 24 hour(s)) urine, qualitative ([place]/[facility]/CGP/NL) Result Value Ref Range Spec [place] UA 1.010 1.006 - 1.030 HCG Qual [...] seen on recent CT scan presents to [facility] from [facility] with a NSTEMI. She has an [...] with Dr. Hallman. ?? JOCY Hernandez Pager [phone] JOCY MCKOY 06/09/2021 Associated attestation - Mario Hallman MD - 06/09/2021 9:37 PM EDT Cardiology Attending Addendum I shared this visit with JOCY Zaidi and guided the medical decision- making. I explained to patient the findings of echo, R heart catheterization and our diagnostic impression and medications (furosemide and empagliflozin) and possible adverse events. More than 30 minutes were spent in kelp-zl-miyv contact with patient and with arranging discharge [...] Jaspreet Pardo - 06/08/2021 8:34 PM EDT Ventilated Rib Fitter Encounter Note Patient Name: Loida Roque : [id number] MR#: [id number] Admit Date: 06/07/2021 3:49 PM Hospital Day 0 days Narrative: Initial rounding visit to introduce portfolio specialist services and to assess patient interest. [...] Day Note Patient Name: Loida Roque Service: GROUND WATER CONTRACTOR / PA Responsible Attending: Mario Hallman MD [...] PCR Not Detected Not Detected SARS-CoV-2 Source GROUND WATER CONTRACTOR Swab Troponin Result Value Ref Range Troponin-T [...] seen on recent CT scan presents to [facility] from [facility] with a NSTEMI. She has an [...] with Dr. Hallman. ?? 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 ??? fluticasone propionate (FLONASE) 50 mcg/actuation [place], Suspension 1 spray by Each Nare route [...] seen on recent CT scan presents to [facility] from [facility] with a NSTEMI. She has an elevated trop, BNP and lateral EKG changes. Patient is now awaiting an Echo and cardiac cath. Neurology consult called in to determine if she needs imaging prior to her Echo and cath given garbled speech a week ago. Stable at this time. TREATMENT PLAN: NSTEMI Admit to [facility] for telemetry monitoring Serial enzymes and EKGs [...] JOCY Hernandez 06/07/2021 Provider: JOCY MCKOY Pager [phone] 06/07/2021 Associated attestation - Mario Hallman MD [...] COVID test: Lab Results Component Value Date [id number] Not Detected 06/07/2021 Present on Admission: ??? [...] Primary care provider on file: Tim Rogers, TITLE CLERK [phone] Pharmacy: [facility] - [place], [place] - [address] [facility] [address] [facility] [address] Advance Care Planning: Attempt Cardiopulmonary Resuscitation - Inpatient <no information> -Advanced Directive: No, declines (Boby (spouse) SDM) Current Functional Ability: Independent Functional Status Prior to Admission: Independent Home Environment: Others in the home: spouse. Current Living Arrangements: home/apartment/condo. Accessibility Concerns: . Current DME: none [address] [facility] [phone] Social & Family Supports: All names listed [...] private vehicle when medically ready. Registered Nurse Home Based Assistant / Type Photography Supervisor will continue to follow patient???s progress [...] Daily. ??? 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 Consider BREAKER MECHANIC consult for full evaluation and diet recommendations. [...] midnight for cath 06/08 ECHO [facility] due at [address] [...] for further details. JOCY MCKOY 06/07/2021 Pager [phone] documented in this encounter Plan of Treatment Upcoming Encounters Date Type Department Care Team (Late st Contact Info) Description 10/26/2023 4:00 PM EDT Office Visit Cardiology at [address] [phone] Jaspreet Kinsey MD [facility] [place] [address] 10/28/2023 9:00 AM EDT Office [place] [address] 10/29/2023 10:00 AM EDT Clinical [place] [address] 10/29/2023 10:15 AM EDT Procedure [place] [address] 11/01/2023 5:00 PM EDT Office [place] [address] Selene Browning, PhD [facility] [place] [address] 11/22/2023 4:40 PM EDT Office Visit Cardiology at [address] [address] Porsha Mcdaniels MD [facility] [place] [address] 12/13/2023 10:00 AM EDT Clinical [place] [address] [facility] [place] [address] documented as of this encounter Procedures Procedure [...] Modality Other Narrative 07/01/2021 9:29 AM EDT [facility] ? Zio Patch? Ambulatory Cardiac [...] as described ?? Kurt Larose MD, PhD, [facility] Cardiac Electrophysiology Mario Hallman MD CARDIAC SERVICES ORD ERABLES * CARDIAC CATHETERIZATION (06/09/2021 9:05 AM EDT) Anatomical Region Laterality Modality Other Narrative 06/09/2021 9:09 AM EDT ?[facility] ? Cardiac Catheterization/Intervention Report ? Patient Name: Neisha, Loida ? Procedure Date: 06/09/2021 ? A #: [id number] ? Primary Physician: Aaron Ash ? Case #: [id number] ? File Name: [id number] ? Catheterization Order Number: [id number] ? [facility] ? Final Report [place], [place] ? Patient Name: ? Loida Neisha ? ID#: ?[id number] ? : ?1970 ? Procedure Date: ? June 09, 2021 ?Case #: ? [id number] ? Room: ? 1 ? Case Physician: [...] was ?designated as ASA Class III. The [facility] clinical frailty scale is 2: Well. [...] procedure was Urgent. The indication for ?the clinical laboratory director visit is other indication. Chest pain symptom [...] Ash, M.D. ? Electronically Signed by: Aaron Ash, M.D. ? Report Finalized: 06/09/2021 ??09:01 ? Report Last Ammended: 06/23/2021 ??09:51 ? Procedure Note Aaron Ash MD - 06/23/2021 [facility] Cardiac Catheterization/Intervention Report Patient Name: Loida Roque Procedure Date: 06/09/2021 A #: [id number] Primary Physician: Aaron sAh Case #: [id number] File Name: [id number] Catheterization Order Number: [id number] [facility] FinalReport [place], [place] Patient Name: Loida Roque ID#:[id number] :1970 Procedure Date: June 09, 2021 Case [...] patientwas designated as ASA Class III. The [facility] clinical frailty scale is 2:Well. [...] diagnostic procedure was Urgent. The indicationfor the clinical laboratory director visit is other indication. Chest pain symptomassessment [...] Peptide (06/09/2021 3:37 AM EDT) Pathologist [facility] NT-proBNP 911(H) <=124 pg/mL [facility] Blood Venous Draw / Unknown 06/09/2021 3:37 AM EDT 06/09/2021 3:59 AM EDT Narrative Resulting Agency Comment Spec In Lab Deja SANDRA CHEMISTRY ORDERABLES [facility] [place] [address] * Differential, Automated (06/09/2021 3:37 AM EDT) Pathologist [facility] Neutrophil % 64.9 % [facility] Neutrophil Absolute 5.12 1.70 - 6.10 x10(3)/[facility] LABORATORY Lymph % 21.9 % [facility] Lymphocytes Abs 1.7 0.9 - 3.2 x10(3)/[facility] LABORATORY Monocyte % 8.6 % [facility] Monocyte Abs 0.7 0.3 - 0.9 x10(3)/[facility] LABORATORY Eos % 3.4 % [facility] Eosinophils Abs 0.3 0.0 - 0.4 x10(3)/[facility] LABORATORY Basophil % 0.8 % [facility] Baso Absolute 0.1 0.0 - 0.1 x10(3)/[facility] LABORATORY Immature Gran % 0.40 % [facility] Comment: Immature granulocytes(IG's)percentage and absolute count will include metamyelocytes, myelocytes, and promyelocytes. Blood smears from CBCs yielding IG's will be scanned manually for concordance. If this scan disagrees with the automated IG or if promyelocytes are noted, a manual differential will be performed. Immature Gran Absolute 0.03 0.00 - 0.04 x10(3)/mcL [facility] Blood 06/09/2021 3:37 AM EDT 06/09/2021 3:58 AM EDT Narrative Resulting Agency Comment Spec In Lab Deja SANDRA HEMATOLOGY ORDERABLE S [facility] [place] [address] * (ABNORMAL) Hemogram (06/09/2021 3:37 AM EDT) White Blood Cell 7.9 4.0 - 9.5 x10(3)/[facility] LABORATORY Red Blood Cell 4.88 4.00 - 5.21 x10(6)/[facility]ORATORY Hemoglobin 15.2 11.7 - 15.5 g/dL [facility] Hematocrit 46.5(H) 35.7 - 45.8 % [facility] Mean Cell Volume 95.3(H) 82.6 - 94.4 fL [facility] Mean Cell Hemoglobin 31.1 27.1 - 32.0 pg [facility] Mean Cell Hemoglobin Concentration 32.7 31.7 - 35.0 g/dL [facility] Platelet 334 145 - 357 x10(3)/[facility] LABORATORY RDW Standard Deviation 49.2(H) 37.0 - 46.0 [facility] LABORATORY RDW coefficient of variation 14.5(H) 11.5 - 14.1 % [facility] Mean Platelet Volume 10.2 7.6 - 12.9 fL [facility] NRBC% auto 0.0 % [facility] NRBC Absolute 0.000 0.000 - 0.000 x10(3)/[facility] Blood 06/09/2021 3:37 AM EDT 06/09/2021 3:58 AM EDT Narrative Resulting Agency Comment Spec In Lab Deja SANDRA HEMATOLOGY ORDERABLE S [facility] [place] [address] * (ABNORMAL) BMP w/fasting Glucose (06/09/2021 3:37 [...] of Diabetes Mellitus, Position Statement from the [place] [employer]. ??Diabetes Care, Volume 33, Supplement [...] Filtration Rate 78 >=60 mL/min/1. 73 m?? [facility] [...] ORDERABLES Performing Organization Address [facility]/ZIP Co de Phone Number [facility] [place] [address] * Heparin (unfractionated) Level (06/08/2021 4:07 PM EDT) UF Heparin <0.04 IU/mL [facility] [...] Lab Mario Hallman MD HEMATOLOGY ORDERABLE S [facility] [place] [address] * XR Chest PA & Lateral (Generic) [...] have questions please contact the health healthcare technician that requested your imaging first. ? [...] who have questions please contactthe health healthcare technician that requested your imaging first. Electronically signed by: Magda Machado MD, [facility] ([phone]), at 06/08/2021 6:00 PM Mario Hallman MD [...] have questions please contact the health healthcare technician that requested your imaging first. ? [...] who have questions please contactthe health healthcare technician that requested your imaging first. Mario Hallman MD IMG MRI ORDERABLES * (ABNORMAL) CRP, acute inflammation (06/08/2021 11:58 AM EDT) C-Reactive Protein 28.1(H) <=4.9 mg/L [facility] Blood 06/08/2021 11:5 8 AM EDT 06/08/2021 12:04 PM EDT Narrative Resulting Agency Comment Spec In Lab Mario Hallman MD CHEMISTRY ORDERABLES [facility] [place] [address] * CK (06/08/2021 11:58 AM EDT) Creatine Kinase 30 0 - 160 unit/L [facility] Blood 06/08/2021 11:5 8 AM EDT 06/08/2021 12:04 PM EDT Narrative Resulting Agency Comment Spec In Lab Mario Hallman MD CHEMISTRY ORDERABLES Performing Organization Address [facility] Co de Phone Number [facility] [place] [address] * (ABNORMAL) Sedimentation rate (06/08/2021 11:58 AM EDT) Sedimentation Rate Automated 53(H) 2 - 39 mm/hr [facility] [...] S Performing Organization Address [facility] Co de Phone Number [facility] [place] [address] * Heparin (unfractionated) Level (06/08/2021 11:58 AM EDT) Pathologist [facility] UF Heparin 0.77 IU/mL [facility] [...] S Performing Organization Address [facility] de Phone Number [facility] [place] [address] * urine, qualitative ([place]/[facility]/CGP/NLH) (06/08/2021 11:51 AM EDT) Specific [place] Urine Automated 1.010 1.006 - 1.030 [facility] Human Chorionic Gonadotropin Qualitative, Urine Negative [facility] Comment: Dilute urine samples can result in a false negative test. Repeat testing on a first morning sample or a plasma quantitative hCG measurement is recommended. Urine 06/08/2021 11:5 1 AM EDT 06/08/2021 12:32 PM EDT Narrative Resulting Agency Comment Spec In Lab Mario Hallman MD URINE ORDERABLES Performing Organization Address [facility] de Phone Number [facility] [place] [address] * ECHO COMPLETE W CONTRAST (06/08/2021 11:09 AM EDT) Anatomical Region Laterality Modality Other 06/08/2021 9:35 AM EDT Narrative 06/08/2021 12:42 PM EDT ?[facility] ?[address] ? [place] [address] ?Voice: ?Fax: ? Echocardiogram Report Name: LOIDA ROQUE ? Study Date: 06/08/2021 09:35 AMBP: 109/69 mmHg ? Patient Location: ICCU^432^A : 1970 ? Height: 163 cm ? Account: [id number] Age: 51 yrs ? Weight: 95 kg Gender: Female ?BSA: 2.0 m2 Ordering Physician: DONALD Referring Physician: AJ HARTMAN Performed By: Aaron Herr RDCS Reason For Study: NSTEMI (non-ST elevated myocardial infarction) Exam Location: [facility]. Interpretation Summary 1. Left ventricle is of [...] significant change from prior in 08/2019. Procedure Complete-[id number]. Image enhancement Definity was used for left [...] Procedure Note Kai Haider MD - 06/08/2021 [facility] [address] [place] [address] Voice: Fax: Echocardiogram Report Name: LOIDA ROQUE Study Date: 209:35 AMBP: 109/69 mmHg Patient Location:[place] [id number]^ : 1970 Height: 163 cm Account: [id number] Age: 51 yrs Weight: 95 kg Gender: Female BSA: 2.0 m2 Ordering Physician: DONALD Referring Physician: AJ HARTMAN Performed By: Aaron Herr RDCS Reason For Study: NSTEMI (non-ST elevated myocardial infarction) Exam Location: [facility]. Interpretation Summary 1. Left ventricle is of [...] significant change from prior in 08/2019. Procedure Complete-55727. Image enhancement Definity was used for left [...] AM EDT) UF Heparin 1.20(Crit ical) IU/mL [facility] [...] HEMATOLOGY ORDERABLE S [facility] [place] [address] * (ABNORMAL) Differential, Automated (06/08/2021 4:41 AM EDT) Neutrophil % 71.8 % [facility] Neutrophil Absolute 8.09(H) 1.70 - 6.10 x10(3)/mc L [facility] Lymph % 18.0 % [facility] Lymphocytes Abs 2.0 0.9 - 3.2 x10(3)/mc L [facility] Monocyte % 5.7 % [facility] Monocyte Abs 0.6 0.3 - 0.9 x10(3)/mc L [facility] Eos % 3.5 % [facility] Eosinophils Abs 0.4 0.0 - 0.4 x10(3)/mc L [facility] Basophil % 0.6 % [facility] Baso Absolute 0.1 0.0 - 0.1 x10(3)/mc L [facility] [...] Absolute 0.05(H) 0.00 - 0.04 x10(3)/mc L [facility] Blood 06/08/2021 4:41 AM EDT 06/08/2021 5:11 AM EDT Narrative Resulting Agency Comment Spec In Lab Deja SANDRA HEMATOLOGY ORDERABLE S [facility] [place] [address] * (ABNORMAL) Hemogram (06/08/2021 4:41 AM EDT) White Blood Cell 11.3(H) 4.0 - 9.5 x10(3)/ L [facility] Red Blood Cell 4.64 4.00 - 5.21 x10(6)/mc L [facility] Hemoglobin 13.9 11.7 - 15.5 g/dL [facility] Hematocrit 43.0 35.7 - 45.8 % [facility] Mean Cell Volume 92.7 82.6 - 94.4 fL [facility] Mean Cell Hemoglobin 30.0 27.1 - 32.0 pg [facility] Mean Cell Hemoglobin Concentration 32.3 31.7 - 35.0 g/dL [facility] Platelet 312 145 - 357 x10(3)/mc L [facility] RDW Standard Deviation 47.4(H) 37.0 - 46.0 fL [facility] RDW coefficient of variation 14.3(H) 11.5 - 14.1 % [facility] Mean Platelet Volume 10.8 7.6 - 12.9 fL [facility] NRBC% auto 0.0 % [facility] NRBC Absolute 0.000 0.000 - 0.000 x10(3)/mc L [facility] Blood 06/08/2021 4:41 AM EDT 06/08/2021 5:11 AM EDT Narrative Resulting Agency Comment Spec In Lab Deja SANDRA HEMATOLOGY ORDERABLE S Performing Organization Address [facility]/ZIP Co de Phone Number [facility] [place] [address] * (ABNORMAL) Heparin (unfractionated) Level (06/08/2021 4:41 AM EDT) UF Heparin 1.06(Crit ical) IU/mL [facility] [...] MD HEMATOLOGY ORDERABLE S Performing Organization Address City/[facility]/ZIP Co de Phone Number [facility] [place] [address] * (ABNORMAL) BMP w/fasting Glucose (06/08/2021 4:41 [...] of Diabetes Mellitus, Position Statement from the [place] [employer]. ??Diabetes Care, Volume 33, Supplement 1, Mar 2009 Blood Urea Nitrogen 21(H) 8 - 18 mg/dL [facility] [...] Filtration Rate 77 >=60 mL/min/1. 73 m?? [facility] [...] MD CHEMISTRY ORDERABLES [facility] [place] [address] * Troponin (06/08/2021 4:41 AM EDT) Troponin-T [...] ischemia ?? New or presumed new significant LZ-tkmdykj-K wave (ST-T) changes or new left bundle [...] additional sample may be indicated. Reference: Third [place] Definition of Myocardial Infarction. Journal of the [place] [employer] 2012;60:1581-98 Blood 06/08/2021 4:41 AM EDT 06/08/2021 5:12 AM EDT Narrative Resulting Agency Comment Spec In Lab Mario Hallman MD CHEMISTRY ORDERABLES [facility] [place] [address] * Heparin (unfractionated) Level (06/07/2021 9:55 PM EDT) Pathologist [facility] UF Heparin 0.08 IU/mL [facility] HEMATOLOGY ORDERABLE S [facility] [place] [address] * (ABNORMAL) pro-Brain Natriuretic Peptide (06/07/2021 5:26 PM EDT) [facility] NT-proBNP 2,701(H) <=124 pg/mL [facility] Blood Venous Draw / Unknown 06/07/2021 5:26 PM EDT 06/07/2021 5:44 PM EDT Narrative Resulting Agency Comment Spec In Lab Deja [place] [address] * (ABNORMAL) Differential, Automated (06/07/2021 5:26 PM EDT) [facility] Neutrophil % 74.6 % [facility] Neutrophil Absolute 8.97(H) 1.70 - 6.10 x10(3)/mc L [facility] Lymph % 15.9 % [facility] Lymphocytes Abs 1.9 0.9 - 3.2 x10(3)/[facility] Monocyte % 6.0 % [facility] Monocyte Abs 0.7 0.3 - 0.9 x10(3)/[facility] Eos % 2.6 % [facility] Eosinophils Abs 0.3 0.0 - 0.4 x10(3)/[facility] Basophil % 0.5 % [facility] Baso Absolute 0.1 0.0 - 0.1 x10(3)/[facility] [...] Immature Gran Absolute 0.05(H) 0.00 - 0.04 x10(3)/[facility] Blood 06/07/2021 5:26 PM EDT 06/07/2021 5:36 PM EDT Narrative Resulting Agency Comment Spec In Lab Deja SANDRA HEMATOLOGY ORDERABLE S [facility] [place] [address] * (ABNORMAL) Hemogram (06/07/2021 5:26 PM EDT) White Blood Cell 12.0(H) 4.0 - 9.5 x10(3)/[facility] Red Blood Cell 4.72 4.00 - 5.21 x10(6)/[facility] Hemoglobin 14.5 11.7 - 15.5 g/dL [facility] Hematocrit 44.0 35.7 - 45.8 % [facility] Mean Cell Volume 93.2 82.6 - 94.4 fL [facility] Mean Cell Hemoglobin 30.7 27.1 - 32.0 pg [facility] Mean Cell Hemoglobin Concentration 33.0 31.7 - 35.0 g/dL [facility] Platelet 346 145 - 357 x10(3)/mc L [facility] RDW Standard Deviation 47.2(H) 37.0 - 46.0 fL [facility] RDW coefficient of variation 14.4(H) 11.5 - 14.1 % [facility] Mean Platelet Volume 10.6 7.6 - 12.9 [facility] NRBC% auto 0.0 % [facility] NRBC Absolute 0.000 0.000 - 0.000 x10(3)/mc L [facility] Blood 06/07/2021 5:26 PM EDT 06/07/2021 5:36 PM EDT Narrative Resulting Agency Comment Spec In Lab Deja SANDRA HEMATOLOGY ORDERABLE S [facility] [place] [address] * BMP w/fasting Glucose (06/07/2021 5:26 PM [...] of Diabetes Mellitus, Position Statement from the [place] [employer]. ??Diabetes Care, Volume 33, Supplement [...] MD CHEMISTRY ORDERABLES [facility] [place] [address] * T3 Total (06/07/2021 5:26 PM EDT) T3 Total 134 80 - 200 ng/dL [facility] Blood 06/07/2021 5:26 PM EDT 06/07/2021 5:36 PM EDT Narrative Resulting Agency Comment Spec In Lab Mario Hallman MD CHEMISTRY ORDERABLES Performing Organization Address [facility] de Phone Number [facility] [place] [address] * T4 Total (06/07/2021 5:26 PM EDT) T4 Total 6.8 5.3 - 11.6 mcg/dL [facility] Comment: Reference Interval (mcg/dL): Females: ??First Trimester: 6.3-13.5 ??Second Trimester: 7.1-14.3 ??Third Trimester: 6.9-14.1 Blood 06/07/2021 5:26 PM EDT 06/07/2021 5:36 PM EDT Narrative Resulting Agency Comment Spec In Lab Mario Hallman MD CHEMISTRY ORDERABLES Performing Organization Address [facility] de Phone Number [facility] [place] [address] * (ABNORMAL) TSH (06/07/2021 5:26 PM EDT) Thyroid Stimulating Hormone 5.83(H) 0.27 - 4.20 mcIU/mL [facility] Comment: Reference Interval (mcIU/mL): Females: ??First Trimester: 0.23-3.88 ??Second Trimester: 0.22-3.90 ??Third Trimester: 0.44-4.66 Blood 06/07/2021 5:26 PM EDT 06/07/2021 5:36 PM EDT Narrative Resulting Agency Comment Spec In Lab Mario Hallman MD CHEMISTRY ORDERABLES Performing Organization Address City/[facility] Co de Phone Number [facility] [place] [address] * Lipase (06/07/2021 5:26 PM EDT) Lipase 18 0 - 60 unit/L [facility] Blood 06/07/2021 5:26 PM EDT 06/07/2021 5:36 PM EDT Narrative Resulting Agency Comment Spec In Lab Mario Hallman MD CHEMISTRY ORDERABLES Performing Organization Address City/[facility]/ZIP Co de Phone Number [facility] [place] [address] * Amylase (06/07/2021 5:26 PM EDT) Amylase 39 28 - 100 unit/L [facility] Blood 06/07/2021 5:26 PM EDT 06/07/2021 5:36 PM EDT Narrative Resulting Agency Comment Spec In Lab Mario Hallman MD CHEMISTRY ORDERABLES Performing Organization Address [facility] Co de Phone Number [facility] [place] [address] * Lipid Panel (Reflex Direct LDL) (06/07/2021 5:26 PM EDT) Cholesterol, Total 164 mg/dL [facility] Comment: Lower Risk: <200 mg/dL Average Risk: 200-239 mg/dL Higher Risk: >kx=056 mg/dL Triglyceride 144 mg/dL [facility] Comment: Average Risk/Lower Risk: <150 mg/dL Borderline High Risk: 150-199 mg/dL High Risk: 200-499 mg/dL Very High Risk: >ne=656 mg/dL HDL Cholesterol 44 mg/dL [facility] Comment: Males: ?? Higher Risk: <40 mg/dL Females: ?? Higher Risk: <50 mg/dL LDL Cholesterol 91 mg/dL [facility] Comment: Lowest Risk: <100 mg/dL Lower Risk: 100-129 mg/dL Borderline High Risk: 130-159 mg/dL High Risk: 160-189 mg/dL Very High Risk: >si=689 mg/dL Cholesterol/HDL Ratio 3.7 ratio [facility] Lipid Interpretation See Note [facility] Comment: Lipid management should be guided by a patient? s ASCVD risk, goals and preferences. ACC/AHA Guidelines recommend high intensity statin if clinical ASCVD or LDL greater than or equal to 190 mg/dL. http://Minggl.com/AUN-BHG-Jwmdutctn Adults aged 40-75 with LDL 70-189 mg/dL should have their 10 year ASCVD risk estimated with the ACC/AHA ASCVD risk moveman http://tools.acc.org/OLRKF-Coyq-Pckkmqbkm/ Statin should be discussed if risk greater [...] MD CHEMISTRY ORDERABLES [facility] [place] [address] * CK (06/07/2021 5:26 PM EDT) Creatine Kinase 33 0 - 160 unit/L [facility] Blood 06/07/2021 5:26 PM EDT 06/07/2021 5:36 PM EDT Narrative Resulting Agency Comment Spec In Lab Mario Hallman MD CHEMISTRY ORDERABLES [facility] [place] [address] * Hemoglobin A1c (06/07/2021 5:04 PM EDT) Hemoglobin A1c 5.6 4.3 - 5.6 % [facility] [...] Mellitus, Diabetes Care 2013; 36: Suppl. 1, S67-15 Estimated Average Glucose 114 mg/dL [facility] Comment: [...] into estimated average glucose values. ??Diabetes Care 2008:31(8):8491-9933. Blood 06/07/2021 5:04 PM EDT 06/07/2021 5:36 PM EDT Narrative Resulting Agency Comment Spec In Lab Mario Hallman MD CHEMISTRY ORDERABLES Performing Organization Address [facility]/ZIP Co de Phone Number [facility] [place] [address] * Troponin (06/07/2021 5:04 PM EDT) [facility] Troponin-T <0.01 0.00 - 0.00 ng/mL [facility] [...] ischemia ?? New or presumed new significant NC-jycviox-V wave (ST-T) changes or new left bundle [...] additional sample may be indicated. Reference: Third [place] Definition of Myocardial Infarction. Journal of the [place] College of [employer]iology 2012;60:1581-98 Blood 06/07/2021 5:04 PM EDT 06/07/2021 5:36 PM EDT Narrative Resulting Agency Comment Spec In Lab Mario Hallman MD CHEMISTRY ORDERABLES Performing Organization Address City/[facility]/ZIP Co de Phone Number [facility] [place] [address] * EKG 12 Lead (06/07/2021 4:33 PM EDT) Ventricular rate 54 BPM MUSE SYSTEM Atrial Rate 54 BPM MUSE SYSTEM P-R Interval 166 ms MUSE SYSTEM QRS Duration 86 ms MUSE SYSTEM Q-T Interval 514 ms MUSE SYSTEM QTC Calculated (Bezet) 487 ms MUSE SYSTEM Calculated P [place] 30 degrees MUSE SYSTEM Calculated R [place] 22 degrees MUSE SYSTEM Calculated T [place] 18 degrees MUSE SYSTEM INTERPRETATION Sinus bradycardia Left atrial enlargement Cannot rule out Lateral infarct , age undetermined Abnormal ECG When compared with ECG of 31-AUG-2019 07:05, No significant change was found Confirmed by MD Dalia, Willy Huerta ([id number]) on 06/09/2021 4:36:27 PM MUSE SYSTEM 06/07/2021 4:33 PM EDT 06/09/2021 4:36 PM EDT Mario Hallman MD ECG ORDERABLES MUSE SYSTEM * COVID-19 PCR (06/07/2021 4:30 PM EDT) SARS-CoV-2 RNA (Rapid) Not Detected Not Detected [facility] [...] using the Simplexa COVID-19 Direct Assay by [employer] as authorized by the FDA issued Emergency [...] Department of Pathology and Laboratory Medicine at [facility], certified under the Clinical [...] fact sheets at the following FDA website: https://www.fda.gov/medical-devices/vyqvzwswues-waneqqg-3615-apope-55-qlofawtcm- use-a iymoiulpdgqdc-dznjuvj-qlovyuy/upplk-ylrdzklsgor-zvrt SARS-CoV-2 Source [employer] Swab [facility] Nasopharyngeal Swab 06/08/19 4:30 PM EDT 06/07/2021 4:45 PM EDT Comment:Symptoms->Surveillan ce Narrative Resulting Agency Comment Spec In Lab Mario Hallman MD MICROBIOLOGY - GENER AL ORDERABLES [facility] [place] [address] documented in this encounter Visit Diagnoses Diagnosis [...] 81 mg, Oral, DAILY, First dose on Wed06/07/21 at 1845, Until Discontinued, Routine Given 06/09/2021 9:39 AM EDT 81 mg Given 06/08/2021 9:08 AM EDT 81 mg atorvastatin (Lipitor) tablet 80 mg 80 mg, Oral, EVERY EVENING, First dose on Wed06/07/21 at 1845, Until Discontinued, Routine Given 06/08/2021 [...] 60 mg, Oral, DAILY, First dose on Wed06/07/21 at 1845, Until Discontinued, Routine Given 06/08/2021 [...] PROTOCOL, Starting on 06/07/21 at 1744, Until [place] 06/08/21 at 1300, Per Protocol, START ADJUSTMENT [...] Routine 09 (Given - Provider: Jo Ann Maldonado, ERWIN) [...] she only takes this as needed.) 0853 (MAR Hold - Provider: Admin Adt [...] (Given - Provider: Colette Medina, ERWIN) 0853 (MAR Hold - Provider: Admin Adt - Reason: Transfer to a Procedural area)0929 (MAR Unhold - Provider: Admin Adt) rOPINIRole (Requip) [...] [facility] Unhold - Provider: Admin Adt) Continuous [...] PRN, Starting on 06/08/21 at 2107, Until Wed06/09/21 at 1531, Pain, Routine 2116 (Given - [...] Routine documented in this encounter Care Teams County Manager Relationship Specialty Start Date End Date Polo Pearce PA [address] [place] [address] PCP - General Internal Medicine 06/09/21 documented as of this encounter
--- OUTSIDE RECORDS SUMMARY | 2023-10-22 00:45 | XMS_ITS | Encounter Summary ---
Author Organization [facility] [place] [address] Care Team Providers Care Enterprise Analyst Name Role Phone Tim Rogers DNP Primary Care Provider [phone] Encounter Details Date Type Department Care Team (Late st Contact Info) Description 10/21/2020 Telephone [place] [address] Beto Miller MD [facility] [place] [address] Social History Tobacco Use Types Packs/Day Years [...] 1: 80, normal SSA, SSB, Alcantar antibody, STUDIO POTTER antibody, ANCA, MPO antibody, [place]-3 antibody, serum RITCHIE, CBC, BMP and CRP [...] Question: Where will study be performed? Answer: [facility] Order Specific Question: Apply for 7 or 14 days? Answer: 14 Beto Miller MD documented in this encounter Plan of Treatment Upcoming Encounters Date Type Department Care Team (Late st Contact Info) Description 10/26/2023 4:00 PM EDT Office Visit Cardiology at [address] [phone] Jaspreet Kinsey MD [facility] [place] [address] 10/28/2023 9:00 AM EDT Office [place] [address] 10/29/2023 10:00 AM EDT Clinical Support [place] [address] 10/29/2023 10:15 AM EDT Procedure [place] [address] 11/01/2023 5:00 PM EDT Office Visit [place] [phone] Selene Browning, PhD [facility] [place] [address] 11/22/2023 4:40 PM EDT Office Visit Cardiology at [address] [phone] Porsha Mcdaniels MD [facility] [place] [address] 12/13/2023 10:00 AM EDT Clinical Support [place] [phone] [facility] [place] [address] documented as of this encounter Visit Diagnoses Diagnosis Palpitations documented in this encounter Care Teams Enterprise Analyst Relationship Specialty Start Date End Date Tim Rogers DNP PCP - General Family Medicine 08/28/19 06/08/21 documented as of this encounter
--- OUTSIDE RECORDS SUMMARY | 2023-10-22 00:45 | XMS_ITS | Encounter Summary ---
[place] [address] Care Team Providers Care Manager Molecular Name Role Phone Tim Rogers DNP Primary Care Provider [phone] Reason for Visit * Reason Onset Date Comments Other 10/18/2020 Pt requesting ca ll back from MD Encounter Details Date Type Department Care Team (Late st Contact Info) Description 10/18/2020 [place] [phone] Olive Gonzales RN Other (Pt requesting call [...] Olive Gonzales RN Department of Pulmonary 5C, [facility] / Pager: [phone] documented in this encounter Plan of Treatment Upcoming Encounters Date Type Department Care Team (Late st Contact Info) Description 10/26/2023 4:00 PM EDT Office Visit Cardiology at [address] [phone] Jaspreet Kinsey MD [facility] [place] [address] 10/28/2023 9:00 AM EDT Office [place] [address] 10/29/2023 10:00 AM EDT Clinical Support [place] [address] 10/29/2023 10:15 AM EDT Procedure visit [place] [address] 11/01/2023 5:00 PM EDT Office Visit Gastroenterology at [place] [phone] Selene Browning, PhD [facility] [place] [address] 11/22/2023 4:40 PM EDT Office Visit Cardiology at [address] [phone] Porsha Mcdaniels MD [facility] [place] [address] 12/13/2023 10:00 AM EDT Clinical [place] [phone] Lucero Romero, ALVA [facility] [place] [address] documented as of this encounter Visit Diagnoses Not on filedocumented in this encounter Care Teams Manager Molecular Relationship Specialty Start Date End Date Tim Rogers DNP PCP - General Family Medicine 08/28/19 06/08/21 documented as of this encounter
--- OUTSIDE RECORDS SUMMARY | 2023-10-22 00:45 | XMS_ITS | Encounter Summary ---
Author Organization [facility] [place] [address] Care Team Providers Care Print Journalist Name Role Phone Tim Rogers DNP Primary Care Provider Encounter Details Date Type Department Care Team (Late st Contact Info) Description 03/23/2021 Ancillary Procedure [place]iology [place] [address] Tim Rogers DNP [address] [place], [place] [id number] Social History Tobacco Use Types Packs/Day Years [...] PM EDT Office Visit Cardiology at [address] [phone] Jaspreet Kinsey MD [facility] [place] [address] 10/28/2023 9:00 AM EDT Office [place] [address] 10/29/2023 10:00 AM EDT Clinical [place] [address] 10/29/2023 10:15 AM EDT Procedure [place] [address] 11/01/2023 5:00 PM EDT Office Visit [place] [address] Selene Browning, PhD [facility] [place] [address] 11/22/2023 4:40 PM EDT Office Visit Cardiology at [address] [phone] Porsha Mcdaniels MD [facility] [place] [address] 12/13/2023 10:00 AM EDT Clinical Support [place] [phone] Lucero Romero, ALVA [facility] [place] [address] documented as of this encounter Procedures Procedure Name Priority Date/Time Associated Diagnosis Comments FILM LIBRARY STORAGE ONLY DX CHEST Routine 03/23/2021 12:00 AM EST documented in this encounter Results * Film Library- Storage Only DX Chest (03/23/2021 12:00 AM EST) Narrative [facility] - 04/03/2021 11:45 AM EST This exam is auto-finalizing. It's purpose is for storage only. Tim Rogers DNP [facility] FILM LIBRARY OR DERABLES [place], [place] documented in this encounter Visit Diagnoses Not on filedocumented in this encounter Care Teams Print Journalist Relationship Specialty Start Date End Date Tim Rogers DNP PCP - General Family Medicine 08/28/19 06/08/21 documented as of this encounter
--- OUTSIDE RECORDS SUMMARY | 2023-10-22 00:45 | XMS_ITS | Encounter Summary ---
[place] [address] Care Team Providers Care Cart Driver Name Role Phone Polo Pearce Primary Care Provider [phone] Reason for Visit * Auth/Cert Specialty Diagnoses / Procedures Referred By Jayant harris Referred To Contact Diagnoses NSTEMI (non-ST elevated myocardial infarction) NSTEMI Procedures EMERGENCY OBSVO Referral ID Status Reason Start Date Expiration Date Visits Re quested Visits Authorized [id number] 1 1 Encounter Details Date Type Department Care Team (Late st Contact Info) Description 06/09/2021 8:15 AM EDT - 06/09/2021 9:15 AM EDT Surgery [place] [id number] Aaron Ash MD [facility] [place] [address] CARDIAC CATHETERIZATION Social History Tobacco Use Types [...] Loida Roque Patient Age: 51 y.o. Language: Italian Race: White Ethnicity: Not nor Admit date: [...] in a week and prn ?? Consider [place] as an out patient Inpatient Provider Contact Information: Dr. Mario Zaidi PA-C [phone] Discharge Diagnoses (Hospital Problems) and Secondary Diagnoses [...] change from prior in 08/2019. ?? Procedure Complete-51630. Image enhancement Definity was used for left [...] questions please contact the health home health care provider that requested your imaging [...] hysterectomy, Insomnia, and migraine who presents to [facility] with RUQ pain that radiated [...] 15. ?? Hospital Course: On admission to [facility], the patient had no complaints of chest pain or shortness of breath at rest.Telemetry was attached which showed normal sinus rhythm. Heparin drip was infusing. [facility] records/transfer records were reviewed. Baseline labs were checked and/or drawn. Chest Pain, DE ruled out, Echo showed preserved LVEF Given the patient's risk factors, chronic non-specific ST-T changes on ECG, and here at [facility] normaltroponin as well as reproducible chest tenderness [...] significant weight, however during her stay at [facility] now she lost only 0.9 kg, to [...] needed Follow up Appointments: PCP Tim Rogers, GEOMORPHOLOGIST [phone] to see you in a week (patient to set this up) Mel placed on 06/09/2021 Cardiology to see in a month and prn. Dr. Kinsey to see the patient in [place] on July 23 at 920 am. Please call [phone] with questions. Home oxygen therapy: N/A Arrangements for VNA/home care: none Future Appointments and Orders Future Appointments and Orders Future Appointments Provider Department Dept Phone 07/23/2021 8:20 AM Jaspreet Kinsey MD Cardiology at [place] Arrive at: [facility] [address] [phone] Future Orders Complete By Expires Ziopatch 48 Hrs-15 Days [IOE5332 CPT(R)] 06/09/2021 12/09/2021 Process Instructions: Scheduling Instructions: Questions: Does the patient have a pacemaker? If yes provide HI/LO settings: Apply for 7 or 14 days?: 14 Where will study be performed?: [facility] Clinics Basic Metabolic Panel (non-fasting) [LAB15 Custom] 06/16/2021 (Approximate) 06/09/2022 Process Instructions: INCLUDES: Calcium, BUN, Creat, GFR, Glucose, Lytes Scheduling Instructions: Comments: Questions: Discharge References/Attachments None documented in this encounter Discharge Instructions * Discharge Instructions* Deja Zaidi PA - 06/08/2021 1:56 PM EDT Return to work: One week Driving: as needed Follow up Appointments: PCP Tim Rogers, GEOMORPHOLOGIST [phone] to see you in a week (patient to set this up) Ziopatch placed on 06/09/2021 Cardiology to see in a month and prn. Dr. Kinsey to see the patient in [place] on July 23 at 920 am. Please call [phone] with questions. Home oxygen therapy: N/A Arrangements for VNA/home care: none documented in this encounter Medications at Time of Discharge Medication Sig Dispensed Refills Start Date End Date rOPINIRole (Requip) 1 mg Tablet Take 2 mg by mouth 2 times daily. 07/16/2020 loratadine (Claritin) 10 mg Tablet Take 10 mg by mouth daily as needed. fluticasone propionate (FLONASE) 50 mcg/actuation [place], Suspension 1 spray by Each Nare route [...] Nutrition Plan: Pt seen for Na2gm diet. Industrial Relations Analyst informed pt of current diet orders and their restrictions. Pt expressed understanding and informed this science writer that she tries to limit salt use at home. Industrial Relations Analyst and pt discussed common sources of sodium (pre-prepared foods) and alternatives (fresh/frozen veggies). Provided educational material and encouraged pt to reach out with any questions or concerns. Will continue to monitor and follow up. Continue current diet. Monitor weight. Encourage good oral intake. Support and encouragement provided. Discussed case with Clinical Dietitian Active Orders Diet Daily Healthy Menu Choices/Cardiac diet ([facility]-Diet) 2 GM NA Frequency: Effective Now Number [...] and no vomiting Last Bowel Movement: (PRESSURE WASHER) Patient education / questions: provided diet order education and patient with good understanding, written education and contact information provided and all nutrition related questions answered at this time Nutrition services to follow weekly through hospital course unless consulted in the interim. Rocio Rosenthal Pager: [phone] * Deja Zaidi PA - 06/09/2021 9:14 AM EDT Inpatient Cardiology Discharge Day Note Patient Name: Loida Roque Service: FOSTER CARE THERAPIST / PA Responsible Attending: Mario Hallman [...] (from the past 24 hour(s)) urine, qualitative ([facility]/P/NL) Result Value Ref Range Spec [place] UA 1.010 1.006 - 1.030 HCG Qual [...] seen on recent CT scan presents to [facility] from [facility] with a NSTEMI. She has [...] with Dr. Hallman. ?? JOCY Hernandez Pager [phone] JOCY MCKOY 06/09/2021 Associated attestation - Mario Hallman MD - 06/09/2021 9:37 PM EDT Cardiology Attending Addendum I shared this visit with JOCY Zaidi and guided the medical decision- making. I explained to patient the findings of echo, R heart catheterization and our diagnostic impression and medications (furosemide and empagliflozin) and possible adverse events. More than 30 minutes were spent in [id number] contact with patient and with arranging discharge [...] Jaspreet Pardo - 06/08/2021 8:34 PM EDT Color Corrector Encounter Note Patient Name: Loida Roque : [id number] MR#: [id number] Admit Date: 06/07/2021 3:49 PM Hospital Day 0 days Narrative: Initial rounding visit to introduce deli cutter slicer services and to assess patient interest. Patient [...] Care: 5 minutes Jaspreet Pardo 06/08/2021 * Deaj Zaidi PA - 06/08/2021 10:42 AM EDT Images from the original note were not included. Inpatient Cardiology Discharge Day Note Patient Name: Loida Roque Service: FOSTER CARE THERAPIST / PA Responsible Attending: Mario Hallman [...] ??? heparin (porcine) infusion 1,100 Units/hr (06/08/21 0773) PRN Meds:hydrOXYzine, heparin (porcine) infusion AND heparin [...] PCR Not Detected Not Detected SARS-CoV-2 Source FOSTER CARE THERAPIST Swab Troponin Result Value Ref Range [...] seen on recent CT scan presents to [facility] from [facility] with a NSTEMI. She has [...] with Dr. Hallman. ?? 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 ??? fluticasone propionate (FLONASE) 50 mcg/actuation [place], Suspension 1 spray by Each Nare route [...] seen on recent CT scan presents to [facility] from [facility] with a NSTEMI. She has an elevated trop, BNP and lateral EKG changes. Patient is now awaiting an Echo and cardiac cath. Neurology consult called in to determine if she needs imaging prior to her Echo and cath given garbled speech a week ago. Stable at this time. TREATMENT PLAN: NSTEMI Admit to [facility] for telemetry monitoring Serial enzymes and [...] JOCY Hernandez 06/07/2021 Provider: JOCY MCKOY Pager [phone] 06/07/2021 Associated attestation - Mario Hallman MD [...] COVID test: Lab Results Component Value Date [id number] Not Detected 06/07/2021 Present on Admission: ??? NSTEMI (non-ST elevated myocardial infarction) ??? Asthma ??? MARYLOU on CPAP ??? Insomnia ??? Chronic heart failure with preserved ejection fraction Hospitalizations Within the Past 30 Days: no previous admission in last 30 days Patient receiving hospital care under Observation status. Admission order reviewed. Primary Insurance on file: [facility] Secondary Insurance on file:@ Primary care provider on file: Tim Rogers APRN [phone] Pharmacy: [id number] - [place], [place] - [address] [facility] [address] [facility] [place] [address] Advance Care Planning: Attempt Cardiopulmonary Resuscitation - Inpatient <no information> -Advanced Directive: No, declines (Boby (spouse) SDM) Current Functional Ability: Independent Functional Status Prior to Admission: Independent Home Environment: Others in the home: spouse. Current Living Arrangements: home/apartment/condo. Accessibility Concerns: . Current DME: none [address] [place] [address] Social & Family Supports: All names listed [...] private vehicle when medically ready. Registered Nurse Burner Tender / Field Training Manager will continue to follow patient???s progress [...] Daily. ??? 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 Consider AUTOMATIC PILOT MECHANIC consult for full evaluation and diet [...] for further details. JOCY MCKOY 06/07/2021 Pager [phone] documented in this encounter Plan of Treatment Upcoming Encounters Date Type Department Care Team (Late st Contact Info) Description 10/26/2023 4:00 PM EDT Office Visit Cardiology at [address] [address] [facility] [address] 10/28/2023 9:00 AM EDT Office Visit [place] [address] 10/29/2023 10:00 AM EDT Clinical Support [place] [address] 10/29/2023 10:15 AM EDT Procedure visit [place] [address] 11/01/2023 5:00 PM EDT Office Visit [place] [phone] Selene Browning, PhD [facility] [place] [address] 11/22/2023 4:40 PM EDT Office Visit Cardiology at [address] [address] [facility] [address] 12/13/2023 10:00 AM EDT Clinical Support [place] [address] [facility] [place] [address] documented as of this encounter Procedures Procedure [...] (non-ST elevated myocardial infarction) RAPID COVID-19 PCR ([facility]/APD/NLH) Routine 06/07/2021 4:30 PM EDT documented in this encounter Results * Ziopatch 48 Hrs-15 Days (06/09/2021 3:48 PM EDT) Anatomical Region Laterality Modality Other Narrative 07/01/2021 9:29 AM EDT [facility] ? Zio Patch? Ambulatory Cardiac Event Monitor [...] as described ?? Kurt Larose MD, PhD, [facility] Cardiac Electrophysiology Mario Hallman MD CARDIAC SERVICES ORD ERABLES * CARDIAC CATHETERIZATION (06/09/2021 9:05 AM EDT) Anatomical Region Laterality Modality Other Narrative 06/09/2021 9:09 AM EDT ?[facility] ? Cardiac Catheterization/Intervention Report ? Patient Name: Neisha, Loida ? Procedure Date: 06/09/2021 ? A #: [id number] ? Primary Physician: Aaron Ash ? Case #: [id number] ? File Name: [id number] ? Catheterization Order Number: [id number] ? [facility] ? Final Report [place], [place] ? Patient Name: ? Loida Neisha ? ID#: ?[id number] ? : ?1970 ? Procedure Date: ? [...] procedure was Urgent. The indication for ?the airport maintenance laborer visit is other indication. Chest pain [...] Procedure Note Aaron Ash MD - 06/23/2021 [facility] Cardiac Catheterization/Intervention Report Patient Name: Loida Roque Procedure Date: 06/09/2021 A #: [id number] Primary Physician: Aaron Ash Case #: [id number] File Name: [id number] Catheterization Order Number: [id number] [facility] FinalReport [place], [place] Patient Name: Loida Roque ID#:[id number] :1970 Procedure Date: June 09, 2021 Case [...] patientwas designated as ASA Class III. The [facility] clinical frailty scale is 2:Well. Diagnostic Tests: [...] diagnostic procedure was Urgent. The indicationfor the airport maintenance laborer visit is other indication. Chest pain [...] Natriuretic Peptide (06/09/2021 3:37 AM EDT) Pathologist [facility] NT-proBNP 911(H) <=124 pg/mL [facility] Blood Venous Draw / Unknown 06/09/2021 3:37 AM EDT 06/09/2021 3:59 AM EDT Narrative Resulting Agency Comment Spec In Lab Deja SANDRA CHEMISTRY ORDERABLES [facility] [place] [address] * Differential, Automated (06/09/2021 3:37 AM EDT) Neutrophil % 64.9 % [facility] Neutrophil Absolute 5.12 1.70 - 6.10 x10(3)/[facility] LABORATORY Lymph % 21.9 % [facility] Lymphocytes Abs 1.7 0.9 - 3.2 x10(3)/[facility] LABORATORY Monocyte % 8.6 % [facility] Monocyte Abs 0.7 0.3 - 0.9 x10(3)/[facility] LABORATORY Eos % 3.4 % [facility] Eosinophils Abs 0.3 0.0 - 0.4 x10(3)/[facility] LABORATORY Basophil % 0.8 % [facility] Baso Absolute 0.1 0.0 - 0.1 x10(3)/[facility] [...] Immature Gran Absolute 0.03 0.00 - 0.04 x10(3)/[facility] LABORATORY Blood 06/09/2021 3:37 AM EDT 06/09/2021 3:58 AM EDT Narrative Resulting Agency Comment Spec In Lab Deja SANDRA HEMATOLOGY ORDERABLE S [facility] [place] [address] * (ABNORMAL) Hemogram (06/09/2021 3:37 AM EDT) [facility] White Blood Cell 7.9 4.0 - 9.5 x10(3)/ L [facility] Red Blood Cell 4.88 4.00 - 5.21 x10(6)/[facility] LABORATORY Hemoglobin 15.2 11.7 - 15.5 g/dL [facility] Hematocrit 46.5(H) 35.7 - 45.8 % [facility] Mean Cell Volume 95.3(H) 82.6 - 94.4 fL [facility] Mean Cell Hemoglobin 31.1 27.1 - 32.0 pg [facility] Mean Cell Hemoglobin Concentration 32.7 31.7 - 35.0 g/dL [facility] Platelet 334 145 - 357 x10(3)/mc L [facility] RDW Standard Deviation 49.2(H) 37.0 - 46.0 fL [facility] RDW coefficient of variation 14.5(H) 11.5 - 14.1 % [facility] Mean Platelet Volume 10.2 7.6 - 12.9 [facility] LABORATORY NRBC% auto 0.0 % [facility] NRBC Absolute 0.000 0.000 - 0.000 x10(3)/mc L [facility] Blood 06/09/2021 3:37 AM EDT 06/09/2021 3:58 AM EDT Narrative Resulting Agency Comment Spec In Lab Deja SANDRA HEMATOLOGY ORDERABLE S Performing Organization Address City/State/[facility] Co de Phone Number [facility] [place] [address] * (ABNORMAL) BMP w/fasting Glucose (06/09/2021 3:37 [...] of Diabetes Mellitus, Position Statement from the [place] Diabetes Association. ??Diabetes Care, Volume 33, Supplement 1, Mar 2009 Blood Urea Nitrogen 23(H) 8 - 18 mg/dL [facility] [...] 107 mmol/L [facility] Carbon Dioxide 22 22 - 31 mmol/L [facility] Anion Gap 13 5 - 15 mmol/L [facility] Calcium 9.3 8.5 - 10.5 mg/dL [facility] Est Glomerular Filtration Rate 78 >=60 mL/min/1. 73 m?? [facility] [...] Hallman MD CHEMISTRY ORDERABLES [facility] [place] [address] * Heparin (unfractionated) Level (06/08/2021 4:07 PM EDT) UF Heparin <0.04 IU/mL [facility] Comment: Heparin [...] MD HEMATOLOGY ORDERABLE S Performing Organization Address [facility] de Phone Number [facility] [place] [address] * XR Chest PA & Lateral (Generic) [...] questions please contact the health home health care provider that requested your imaging [...] have questions please contactthe health home health care provider that requested your imaging first. Electronically signed by: Magda Machado MD, [facility] ([phone]), at 06/08/2021 6:00 PM Mario Hallman MD [...] questions please contact the health home health care provider that requested your imaging [...] have questions please contactthe health home health care provider that requested your imaging first. Mario Hallman MD IMG MRI ORDERABLES * (ABNORMAL) CRP, acute inflammation (06/08/2021 11:58 AM EDT) C-Reactive Protein 28.1(H) <=4.9 mg/L [facility] Blood 06/08/2021 11:5 8 AM EDT 06/08/2021 12:04 PM EDT Narrative Resulting Agency Comment Spec In Lab Mario Hallman MD CHEMISTRY ORDERABLES Performing Organization Address [facility]/ZIP Co de Phone Number [facility] [place] [address] * CK (06/08/2021 11:58 AM EDT) Creatine Kinase 30 0 - 160 unit/L [facility] Blood 06/08/2021 11:5 8 AM EDT 06/08/2021 12:04 PM EDT Narrative Resulting Agency Comment Spec In Lab Mario Hallman MD CHEMISTRY ORDERABLES Performing Organization Address [facility] Co de Phone Number [facility] [place] [address] * (ABNORMAL) Sedimentation rate (06/08/2021 11:58 AM EDT) Sedimentation Rate Automated 53(H) 2 - 39 mm/hr [facility] [...] MD HEMATOLOGY ORDERABLE S [facility] [place] [address] * Heparin (unfractionated) Level (06/08/2021 11:58 AM EDT) UF Heparin 0.77 IU/mL [facility] Comment: Heparin [...] MD HEMATOLOGY ORDERABLE S [facility] [place] [address] * urine, qualitative ([place]/[facility]/CGP/NLH) (06/08/2021 11:51 AM EDT) Specific [place] Urine Automated 1.010 1.006 - 1.030 [facility] Human Chorionic Gonadotropin Qualitative, Urine Negative [facility] Comment: Dilute urine samples can result in a false negative test. Repeat testing on a first morning sample or a plasma quantitative hCG measurement is recommended. Urine 06/08/2021 11:5 1 AM EDT 06/08/2021 12:32 PM EDT Narrative Resulting Agency Comment Spec In Lab Mario Hallman MD URINE ORDERABLES [facility] [place] [address] * ECHO COMPLETE W CONTRAST (06/08/2021 11:09 AM EDT) Anatomical Region Laterality Modality Other 06/08/2021 9:35 AM EDT Narrative 06/08/2021 12:42 PM EDT ?[facility] ?[address] ? [place] ?Voice: ?Fax: ? Echocardiogram Report Name: LOIDA ROQUE ? Study Date: 06/08/2021 09:35 AMBP: 109/69 mmHg ? Patient Location: [facility]^432^A : 1970 ? Height: 163 cm ? Account: [id number] Age: 51 yrs ? Weight: 95 kg Gender: Female ?BSA: 2.0 m2 Ordering Physician: DONALD Referring Physician: AJ HARTMAN Performed By: Aaron Herr RDCS Reason For Study: NSTEMI (non-ST elevated myocardial infarction) Exam Location: [facility]. Interpretation Summary 1. Left ventricle is [...] significant change from prior in 08/2019. Procedure Complete-77220. Image enhancement Definity was used for left [...] Procedure Note Kai Haider MD - 06/08/2021 [facility] [address] [place] [address] Voice: Fax: Echocardiogram Report Name: LOIDA ROQUE Study Date: 209:35 AMBP: 109/69 mmHg Patient Location:[facility]^432^A : 1970 Height: 163 cm Account: [id number] Age: 51 yrs Weight: 95 kg Gender: Female BSA: 2.0 m2 Ordering Physician: DONALD Referring Physician: AJ HARTMAN Performed By: Aaron Herr RDCS Reason For Study: NSTEMI (non-ST elevated myocardial infarction) Exam Location: [facility]. Interpretation Summary 1. Left ventricle is [...] significant change from prior in 08/2019. Procedure Complete-[id number]. Image enhancement Definity was used for left [...] AM EDT) UF Heparin 1.20(Crit ical) IU/mL [facility] Comment: [...] Lab Edie Costello MD HEMATOLOGY ORDERABLE S [facility] [place] [address] * (ABNORMAL) Differential, Automated (06/08/2021 4:41 AM EDT) Neutrophil % 71.8 % [facility] Neutrophil Absolute 8.09(H) 1.70 - 6.10 x10(3)/ L [facility] Lymph % 18.0 % [facility] Lymphocytes Abs 2.0 0.9 - 3.2 x10(3)/[facility] LABORATORY Monocyte % 5.7 % [facility] Monocyte Abs 0.6 0.3 - 0.9 x10(3)/[facility] LABORATORY Eos % 3.5 % [facility] Eosinophils Abs 0.4 0.0 - 0.4 x10(3)/[facility] LABORATORY Basophil % 0.6 % [facility] Baso Absolute 0.1 0.0 - 0.1 x10(3)/[facility] LABORATORY Immature Gran % 0.40 % [facility] Comment: Immature granulocytes(IG's)percentage and absolute count will include metamyelocytes, myelocytes, and promyelocytes. Blood smears from CBCs yielding IG's will be scanned manually for concordance. If this scan disagrees with the automated IG or if promyelocytes are noted, a manual differential will be performed. Immature Gran Absolute 0.05(H) 0.00 - 0.04 x10(3)/[facility] LABORATORY Blood 06/08/2021 4:41 AM EDT 06/08/2021 5:11 AM EDT Narrative Resulting Agency Comment Spec In Lab Deja SANDRA HEMATOLOGY ORDERABLE S [facility] [place] [address] * (ABNORMAL) Hemogram (06/08/2021 4:41 AM EDT) White Blood Cell 11.3(H) 4.0 - 9.5 x10(3)/mc L [facility] Red Blood Cell 4.64 4.00 - 5.21 x10(6)/mc L [facility] Hemoglobin 13.9 11.7 - 15.5 g/dL [facility] Hematocrit 43.0 35.7 - 45.8 % [facility] Mean Cell Volume 92.7 82.6 - 94.4 fL [facility] Mean Cell Hemoglobin 30.0 27.1 - 32.0 pg [facility] Mean Cell Hemoglobin Concentration 32.3 31.7 - 35.0 g/dL [facility] Platelet 312 145 - 357 x10(3)/ L [facility] RDW Standard Deviation 47.4(H) 37.0 - 46.0 [facility] LABORATORY RDW coefficient of variation 14.3(H) 11.5 - 14.1 % [facility] Mean Platelet Volume 10.8 7.6 - 12.9 [facility] LABORATORY NRBC% auto 0.0 % [facility] NRBC Absolute 0.000 0.000 - 0.000 x10(3)/[facility] LABORATORY Blood 06/08/2021 4:41 AM EDT 06/08/2021 5:11 AM EDT Narrative Resulting Agency Comment Spec In Lab Deja SANDRA HEMATOLOGY ORDERABLE S [facility] [place] [address] * (ABNORMAL) Heparin (unfractionated) Level (06/08/2021 4:41 AM EDT) UF Heparin 1.06(Crit ical) IU/mL [facility] Comment: [...] MD HEMATOLOGY ORDERABLE S Performing Organization Address City/State/[facility] Co de Phone Number [facility] [place] [address] * (ABNORMAL) BMP w/fasting Glucose (06/08/2021 4:41 [...] of Diabetes Mellitus, Position Statement from the [place] [employer]. ??Diabetes Care, Volume 33, Supplement 1, Mar 2009 Blood Urea Nitrogen 21(H) 8 - 18 mg/dL [facility] [...] 107 mmol/L [facility] Carbon Dioxide 22 22 - 31 mmol/L [facility] Anion Gap 13 5 - 15 mmol/L [facility] Calcium 8.7 8.5 - 10.5 mg/dL [facility] Est Glomerular Filtration Rate 77 >=60 mL/min/1. 73 m?? [facility] [...] Narrative Resulting Agency Comment Spec In Lab aMrio Hallman MD CHEMISTRY ORDERABLES [facility] [place] [address] * Troponin (06/08/2021 4:41 AM EDT) Troponin-T [...] meets the diagnosis for a myocardial infarction (DE). Detection of a rise and/or fall of cTnT, with at least one value greater than the 99th percentile (> or = 0.01) and with at least one of the following ?? Symptoms of ischemia ?? New or presumed new significant KG-dmuxkxw-B wave (ST-T) changes or new left bundle [...] additional sample may be indicated. Reference: Third [place] Definition of Myocardial Infarction. Journal of the [place] [employer] 2012;60:1581-98 Blood 06/08/2021 4:41 AM EDT 06/08/2021 5:12 AM EDT Narrative Resulting Agency Comment Spec In Lab Mario Hallman MD CHEMISTRY ORDERABLES [facility] [place] [address] * Heparin (unfractionated) Level (06/07/2021 9:55 PM EDT) UF Heparin 0.08 IU/mL [facility] Comment: Heparin [...] MD HEMATOLOGY ORDERABLE S [facility] [place] [address] * (ABNORMAL) pro-Brain Natriuretic Peptide (06/07/2021 5:26 PM EDT) [facility] NT-proBNP 2,701(H) <=124 pg/mL [facility] Blood Venous Draw / Unknown 06/07/2021 5:26 PM EDT 06/07/2021 5:44 PM EDT Narrative Resulting Agency Comment Spec In Lab Deja SANDRA CHEMISTRY ORDERABLES Performing Organization Address City/[facility]/ZIP Co de Phone Number [facility] [place] [address] * (ABNORMAL) Differential, Automated (06/07/2021 5:26 PM EDT) [facility] Neutrophil % 74.6 % [facility] Neutrophil Absolute 8.97(H) 1.70 - 6.10 x10(3)/mc L [facility] Lymph % 15.9 % [facility] Lymphocytes Abs 1.9 0.9 - 3.2 x10(3)/mc L [facility] Monocyte % 6.0 % [facility] Monocyte Abs 0.7 0.3 - 0.9 x10(3)/mc L [facility] Eos % 2.6 % [facility] Eosinophils Abs 0.3 0.0 - 0.4 x10(3)/mc L [facility] Basophil % 0.5 % [facility] Baso Absolute 0.1 0.0 - 0.1 x10(3)/mc L [facility] [...] Absolute 0.05(H) 0.00 - 0.04 x10(3)/mc L [facility] Blood 06/07/2021 5:26 PM EDT 06/07/2021 5:36 PM EDT Narrative Resulting Agency Comment Spec In Lab Deja SANDRA HEMATOLOGY ORDERABLE S [facility] [place] [address] * (ABNORMAL) Hemogram (06/07/2021 5:26 PM EDT) White Blood Cell 12.0(H) 4.0 - 9.5 x10(3)/mc L [facility] Red Blood Cell 4.72 4.00 - 5.21 x10(6)/mc L [facility] Hemoglobin 14.5 11.7 - 15.5 g/dL [facility] Hematocrit 44.0 35.7 - 45.8 % [facility] Mean Cell Volume 93.2 82.6 - 94.4 fL [facility] Mean Cell Hemoglobin 30.7 27.1 - 32.0 pg [facility] Mean Cell Hemoglobin Concentration 33.0 31.7 - 35.0 g/dL [facility] Platelet 346 145 - 357 x10(3)/mc L [facility] RDW Standard Deviation 47.2(H) 37.0 - 46.0 fL [facility] RDW coefficient of variation 14.4(H) 11.5 - 14.1 % [facility] Mean Platelet Volume 10.6 7.6 - 12.9 fL [facility] NRBC% auto 0.0 % [facility] NRBC Absolute 0.000 0.000 - 0.000 x10(3)/mc L [facility] Blood 06/07/2021 5:26 PM EDT 06/07/2021 5:36 PM EDT Narrative Resulting Agency Comment Spec In Lab Deja SANDRA HEMATOLOGY ORDERABLE S [facility] [place] [address] * BMP w/fasting Glucose (06/07/2021 5:26 PM [...] of Diabetes Mellitus, Position Statement from the [place] Diabetes [employer]. ??Diabetes Care, Volume 33, Supplement 1, Mar 2009 Blood Urea Nitrogen 18 8 - 18 mg/dL [facility] [...] 107 mmol/L [facility] Carbon Dioxide 24 22 - 31 mmol/L [facility] Anion Gap 12 5 - 15 mmol/L [facility] Calcium 9.1 8.5 - 10.5 mg/dL [facility] Est Glomerular Filtration Rate 60 >=60 mL/min/1. 73 m?? [facility] [...] Hallman MD CHEMISTRY ORDERABLES Performing Organization Address City/[facility]/ZIP Co de Phone Number [facility] [place] [address] * T3 Total (06/07/2021 5:26 PM EDT) T3 Total 134 80 - 200 ng/dL [facility] Blood 06/07/2021 5:26 PM EDT 06/07/2021 5:36 PM EDT Narrative Resulting Agency Comment Spec In Lab Mario Hallman MD CHEMISTRY ORDERABLES [facility] [place] [address] * T4 Total (06/07/2021 5:26 PM EDT) T4 Total 6.8 5.3 - 11.6 mcg/dL [facility] Comment: Reference Interval (mcg/dL): Females: ??First Trimester: 6.3-13.5 ??Second Trimester: 7.1-14.3 ??Third Trimester: 6.9-14.1 Blood 06/07/2021 5:26 PM EDT 06/07/2021 5:36 PM EDT Narrative Resulting Agency Comment Spec In Lab Mario Hallman MD CHEMISTRY ORDERABLES [facility] [place] [address] * (ABNORMAL) TSH (06/07/2021 5:26 PM EDT) Thyroid Stimulating Hormone 5.83(H) 0.27 - 4.20 mcIU/mL [facility] Comment: Reference Interval (mcIU/mL): Females: ??First Trimester: 0.23-3.88 ??Second Trimester: 0.22-3.90 ??Third Trimester: 0.44-4.66 Blood 06/07/2021 5:26 PM EDT 06/07/2021 5:36 PM EDT Narrative Resulting Agency Comment Spec In Lab Mario Hallman MD CHEMISTRY ORDERABLES Performing Organization Address City/[facility]/ZIP Co de Phone Number [facility] [place] [address] * Lipase (06/07/2021 5:26 PM EDT) Lipase 18 0 - 60 unit/L [facility] Blood 06/07/2021 5:26 PM EDT 06/07/2021 5:36 PM EDT Narrative Resulting Agency Comment Spec In Lab Mario Hallman MD CHEMISTRY ORDERABLES Performing Organization Address City/[facility]/ZIP Co de Phone Number [facility] [place] [address] * Amylase (06/07/2021 5:26 PM EDT) Amylase 39 28 - 100 unit/L [facility] Blood 06/07/2021 5:26 PM EDT 06/07/2021 5:36 PM EDT Narrative Resulting Agency Comment Spec In Lab Mario Hallman MD CHEMISTRY ORDERABLES [facility] [place] [address] * Lipid Panel (Reflex Direct LDL) (06/07/2021 5:26 PM EDT) Cholesterol, Total 164 mg/dL [facility] Comment: Lower Risk: <200 mg/dL Average Risk: 200-239 mg/dL Higher Risk: >xf=341 mg/dL Triglyceride 144 mg/dL [facility] Comment: Average Risk/Lower Risk: <150 mg/dL Borderline High Risk: 150-199 mg/dL High Risk: 200-499 mg/dL Very High Risk: >sn=663 mg/dL HDL Cholesterol 44 mg/dL [facility] Comment: Males: ?? Higher Risk: <40 mg/dL Females: ?? Higher Risk: <50 mg/dL LDL Cholesterol 91 mg/dL [facility] Comment: Lowest Risk: <100 mg/dL Lower Risk: 100-129 mg/dL Borderline High Risk: 130-159 mg/dL High Risk: 160-189 mg/dL Very High Risk: >vw=371 mg/dL Cholesterol/HDL Ratio 3.7 ratio [facility] Lipid Interpretation See Note [facility] Comment: Lipid management should be guided by a patient? s ASCVD risk, goals and preferences. ACC/AHA Guidelines recommend high intensity statin if clinical ASCVD or LDL greater than or equal to 190 mg/dL. http://tinyurl.com/EXY-ZOY-Tdjarpqjo Adults aged 40-75 with LDL 70-189 mg/dL should have their 10 year ASCVD risk estimated with the ACC/AHA ASCVD risk utilities estimator and drafter http://tools.acc.org/VRUVN-Pgvp-Xgtgfqzkj/ Statin should be discussed if risk greater [...] Hallman MD CHEMISTRY ORDERABLES Performing Organization Address [facility] Co de Phone Number [facility] [place] [address] * CK (06/07/2021 5:26 PM EDT) Creatine Kinase 33 0 - 160 unit/L [facility] Blood 06/07/2021 5:26 PM EDT 06/07/2021 5:36 PM EDT Narrative Resulting Agency Comment Spec In Lab Mario Hallman MD CHEMISTRY ORDERABLES Performing Organization Address [facility] Co de Phone Number [facility] [place] [address] * Hemoglobin A1c (06/07/2021 5:04 PM EDT) Hemoglobin A1c 5.6 4.3 - 5.6 % [facility] [...] Mellitus, Diabetes Care 2013; 36: Suppl. 1, M90-97 Estimated Average Glucose 114 mg/dL [facility] Comment: eAG equivalents for HbA1c [...] into estimated average glucose values. ??Diabetes Care 2008:31(8):6884-7812. Blood 06/07/2021 5:04 PM EDT 06/07/2021 5:36 PM EDT Narrative Resulting Agency Comment Spec In Lab Mario Hallman MD CHEMISTRY ORDERABLES [facility] [place] [address] * Troponin (06/07/2021 5:04 PM EDT) Troponin-T [...] meets the diagnosis for a myocardial infarction (DE). Detection of a rise and/or fall of cTnT, with at least one value greater than the 99th percentile (> or = 0.01) and with at least one of the following ?? Symptoms of ischemia ?? New or presumed new significant NM-gcryabn-M wave (ST-T) changes or new left bundle [...] additional sample may be indicated. Reference: Third [place] Definition of Myocardial Infarction. Journal of the [place] College [employer]iology 2012;60:1581-98 Blood 06/07/2021 5:04 PM EDT 06/07/2021 5:36 PM EDT Narrative Resulting Agency Comment Spec In Lab Mario Hallman MD CHEMISTRY ORDERABLES Performing Organization Address [facility] de Phone Number [facility] [address] * EKG 12 Lead (06/07/2021 4:33 PM EDT) Ventricular rate 54 BPM MUSE SYSTEM Atrial Rate 54 BPM MUSE SYSTEM P-R Interval 166 ms MUSE SYSTEM QRS Duration 86 ms MUSE SYSTEM Q-T Interval 514 ms MUSE SYSTEM QTC Calculated (Bezet) 487 ms MUSE SYSTEM Calculated P [place] 30 degrees MUSE SYSTEM Calculated R [place] 22 degrees MUSE SYSTEM Calculated T [place] 18 degrees MUSE SYSTEM INTERPRETATION Sinus bradycardia Left atrial enlargement Cannot rule out Lateral infarct , age undetermined Abnormal ECG When compared with ECG of 31-AUG-2019 07:05, No significant change was found Confirmed by MD Dalia, Willy Huerta ([id number]) on 06/09/2021 4:36:27 PM MUSE SYSTEM 06/07/2021 4:33 PM EDT 06/09/2021 4:36 PM EDT Mario Hallman MD ECG ORDERABLES Performing Organization Address [facility] Co de Phone Number MUSE SYSTEM * COVID-19 PCR (06/07/2021 4:30 PM EDT) Pathologist [facility] SARS-CoV-2 RNA (Rapid) Not Detected Not Detected [facility] [...] using the Simplexa COVID-19 Direct Assay by [employer] as authorized by the FDA issued Emergency [...] Department of Pathology and Laboratory Medicine at [facility], certified under the Clinical Laboratory Improvement [...] fact sheets at the following FDA website: https://www.fda.gov/medical-devices/bfksczeglxq-yraytnd-9954-lrzjb-64-cgkxxihiy- use-a bqtlkeaohnins-kxggvnl-xeqwvwx/trktr-gvydanaihnc-lphm SARS-CoV-2 Source [facility]ER[facility] Swab MA R[facility] Nasopharyngeal Swab 06/08/19 4:30 PM EDT 06/07/2021 4:45 PM EDT Comment:Symptoms->Surveillan ce Narrative Resulting Agency Comment Spec In Lab Mario Hallman MD MICROBIOLOGY - GENER AL ORDERABLES [facility] [place] [address] documented in this encounter Visit Diagnoses Not [...] 75 mg, Oral, DAILY, First dose on Decker 06/08/21 at 0900, Until Discontinued, Routine Given 06/08/2021 9:08 AM EDT [address] (Cymbalta) capsule 60 mg 60 mg, Oral, DAILY, First dose on 06/07/21 at 1845, Until Discontinued, Routine Given 06/08/2021 9:02 PM EDT 60 mg Given 06/07/2021 9:00 PM EDT 60 mg empagliflozin (Jardiance) Tab 10 mg 10 mg, Oral, DAILY, First dose on Decker 06/08/21 at 1545, Until Discontinued, Routine Given [...] 40 mg, Intravenous, ONCE, 1 dose, On Decker 06/08/21 at 1545 Given 06/08/2021 5:01 PM [...] 1610, Until 06/07/21 at 1614, Luiza Armstrong: javi overrkaleb heparin (porcine) 50 units/mL in sodium chloride [...] 2100 (Given - Provider: Olive Anne RN) 210 (Given - Provider: Colette Medina RN) 0853 (MAR Hold - Provider: Admin Adt - Reason: Transfer to a Procedural area)0929 (MAR Unhold - Provider: Admin Adt) empagliflozin (Jardiance) Tab 10 mg 10 mg, Oral, DAILY, First dose on 06/08/21 at 1545, Until Discontinued, Routine 171 (Given - Provider: Jo Ann Maldonado RN - Comment: awaiting medication from pharmacy) 0853 ([facility] Hold - Provider: Admin Adt - Reason: Transfer to a Procedural area)0900 (Automatically Held - Provider: Admin Adt)0929 ([facility] Unhold - Provider: Admin Adt)0940 [...] only takes this as needed.) 0853 ([facility] Hold - Provider: Admin Adt - Reason: Transfer to a Procedural area)0900 (Automatically Held - Provider: Admin Adt)0929 ([facility] Unhold - Provider: [...] Provider: Jo Ann Maldonado RN) 0853 ([facility] Hold - Provider: Admin Adt - Reason: Transfer to a Procedural area)0900 (Automatically Held - Provider: Admin Adt)0929 ([facility] Unhold - Provider: Admin Adt)0939 (Given - Provider: Jo Ann Maldonado RN) gabapentin (Neurontin) capsule 300 mg 300 mg, Oral, 2 TIMES DAILY, First dose on 06/07/21 at 2100, Until Discontinued, Routine 2026 (Given - Provider: Olive Anne RN) 0908 (Given - Provider: Jo Ann Maldonado RN)2100 (Given - Provider: Colette Medina RN) 0853 ([facility] Hold - Provider: Admin Adt - Reason: Transfer to a Procedural area)0900 (Automatically Held - Provider: Admin Adt)0929 ([facility] Unhold - Provider: Admin Adt)0940 (Given - Provider: Jo Ann Maldonado RN) lisinopriL (Zestril) tablet 2.5 mg 2.5 mg, Oral, DAILY, First dose on 06/07/21 at 1845, Until Discontinued, Routine 1844 (Not Given - Provider: Olive Anne RN - Reason: See comment - Comment: dose in AM) 0908 (Given - Provider: Jo Ann Maldonado RN) 0853 ([facility] Hold - Provider: Admin Adt - Reason: Transfer to a Procedural area)0900 (Automatically Held - Provider: Admin Adt)0929 ([facility] Unhold - Provider: Admin Adt)0939 [...] this as needed for allergies.) 0853 ([facility] Hold - Provider: Admin Adt - Reason: Transfer to a Procedural area)0900 (Not Given - Provider: Jo Ann Maldonado RN - Reason: Patient/family refused - Comment: only takes as needed)0929 ([facility] Unhold - Provider: [...] area)0900 (Not Given - Provider: Jo Ann Maldonado, ERWIN - Reason: Order parameters not met - Comment: HR 48)0929 ([facility] Unhold - Provider: Admin Adt) montelukast (Singulair) tablet 10 mg 10 mg, Oral, NIGHTLY, First dose on 06/07/21 at 2100, Until Discontinued 2025 (Given - Provider: Olive Anne RN) 2058 (Given - Provider: Colette Medina RN) 0853 ([facility] Hold - Provider: Admin Adt - Reason: Transfer to a Procedural area)0929 ([facility] Unhold - Provider: Admin Adt) rOPINIRole (Requip) tablet 1 mg 1 mg, Oral, NIGHTLY, First dose on 06/07/21 at 2100, Until Discontinued, Routine 2025 (Given - Provider: Olive Anne RN) 2058 (Given - Provider: Colette Medina, ERWIN) 0853 ([facility] Hold - Provider: Admin Adt - Reason: Transfer to a Procedural area)0929 ([facility] Unhold - Provider: Admin Adt) topiramate (Topamax) tablet 50 mg 50 mg, Oral, 2 TIMES DAILY, First dose on 06/07/21 at 2100, Until Discontinued, Routine 2024 (Given - Provider: Olive Anne RN) 1009 (Given - Provider: Jo Ann Maldonado RN - Comment: awaiting medication from pharmacy)2110 (Given - Provider: Colette Medina RN) 0853 ([facility] Hold - Provider: Admin Adt - Reason: Transfer to a Procedural area)0929 ([facility] Unhold - Provider: Admin Adt)1254 (Given - Provider: Jo Ann Maldonado, ERWIN - Comment: awaiting medication from pharmacy) traZODone (Desyrel) tablet 100 mg 100 mg, Oral, NIGHTLY, First dose (after last reorder) on 06/07/21 at 2114, Until Discontinued, Routine 2099 (Given - Provider: Olive Anne RN) 2099 (Given - Provider: Colette Medina RN) 0853 ([facility] Hold - Provider: Admin Adt - Reason: Transfer to a Procedural area)0929 ([facility] Unhold - Provider: [...] restarting at 1000 units/hr (was running at [facility]))2228 (Rate/Dose Change - Provider: Olive Anne RN [...] Bolus, Routine 2228 (Given - Provider: Olive Anne, ERWIN) hydrOXYzine (Atarax) tablet 25 mg 25 mg, [...] Pain, Routine 2116 (Given - Provider: Colette Medina, EWRIN) 0853 (MAY Hold - Provider: Admin Adt [...] Routine documented in this encounter Care Teams Cart Driver Relationship Specialty Start Date End Date Polo Pearce PA [address] [place] [address] PCP - General Internal Medicine 06/09/21 documented as of this encounter
--- OUTSIDE RECORDS SUMMARY | 2023-10-22 00:45 | XMS_ITS | Encounter Summary ---
[place] [address] Care Team Providers Care Assistant Department Manager Name Role Phone Tim Rogers DNP Primary Care Provider [phone] Reason for Visit * Reason Onset Date Comments Other 10/25/2020 Regarding Ziopat ch Encounter Details Date Type Department Care Team (Late st Contact Info) Description 10/25/2020 Telephone [place] [phone] Olive Gonzales RN Other (Regarding Ziopatch) Social [...] reach out to Pt. Pt must call [phone] to request Ziopatch. Olive Gonzales RN Department of Pulmonary 5C, [facility] [place] / Pager: [phone] documented in this encounter Plan of Treatment Upcoming Encounters Date Type Department Care Team (Late st Contact Info) Description 10/26/2023 4:00 PM EDT Office Visit Cardiology at [address] [phone] Jaspreet Kinsey MD [facility] [place] [address] 10/28/2023 9:00 AM EDT Office [place] [address] 10/29/2023 10:00 AM EDT Clinical Support [place] [address] 10/29/2023 10:15 AM EDT Procedure visit [place] [address] 11/01/2023 5:00 PM EDT Office Visit [place] [phone] Selene Browning, PhD [facility] [place] [address] 11/22/2023 4:40 PM EDT Office Visit Cardiology at [address] [phone] Porsha Mcdaniels MD [facility] [place] [address] 12/13/2023 10:00 AM EDT Clinical Support [place] [phone] [facility] [place] [address] documented as of this encounter Visit Diagnoses Not on filedocumented in this encounter Care Teams Assistant Department Manager Relationship Specialty Start Date End Date Tim Rogers DNP PCP - General Family Medicine 08/28/19 06/08/21 documented as of this encounter
--- OUTSIDE RECORDS SUMMARY | 2023-10-22 00:45 | XMS_ITS | Encounter Summary ---
[place] [address] Care Team Providers Care Fresh Food Manager Name Role Phone Tim Rogers DNP Primary Care Provider [phone] Encounter Details Date Type Department Care Team (Late st Contact Info) Description 05/28/2021 Telephone [place] [phone] Beryl Grider Social History Tobacco Use Types [...] PM EDT Office Visit Cardiology at [address] [place] [phone] Jaspreet Kinsey MD [facility] [place] [address] 10/28/2023 9:00 AM EDT Office [place] [address] 10/29/2023 10:00 AM EDT Clinical [place] [address] 10/29/2023 10:15 AM EDT Procedure [place] [address] 11/01/2023 5:00 PM EDT Office Visit [place] [phone] Selene Browning, PhD [facility] [place] [address] 11/22/2023 4:40 PM EDT Office Visit Cardiology at [place] [phone] Porsha Mcdaniels MD [facility] [place] [address] 12/13/2023 10:00 AM EDT Clinical Support [place] [phone] [facility] [place] [address] documented as of this encounter Visit Diagnoses Not on filedocumented in this encounter Care Teams Fresh Food Manager Relationship Specialty Start Date End Date Tim Rogers DNP PCP - General Family Medicine 08/28/19 06/08/21 documented as of this encounter
--- OUTSIDE RECORDS SUMMARY | 2023-10-22 00:45 | XMS_ITS | Encounter Summary ---
[place] [address] Care Team Providers Care Pony Cylinder Press Operator Name Role Phone Polo Pearce Primary Care Provider [phone] Reason for Referral * Diagnostic Test (Routine) - Closed Specialty Diagnoses / Procedures Referred By Jayant harris Referred To Contact Cardiology Diagnoses Elevated blood pressure reading without diagnosis of hypertension Procedures Ziopatch 48 Hrs-15 Days Deja Zaidi PA [facility] [place] [address] [facility] [place] [address] Referral ID Status Reason Start Date Expiration Date V isits Requested Visits Authorized [id number] Closed Specialty Service Requested 06/09/2021 12/09/2021 1 1 Reason for Visit * Diagnostic Test (Routine) - Closed Specialty Diagnoses / Procedures Referred By Jayant harris Referred To Contact Cardiology Diagnoses Elevated blood pressure reading without diagnosis of hypertension Procedures Ziopatch 48 Hrs-15 Days Deja Zaidi PA [facility] [place] [address] [facility] [place] [address] Referral ID Status Reason Start Date Expiration Date V isits Requested Visits Authorized [id number] Closed Specialty Service Requested 06/09/2021 12/09/2021 1 1 Encounter Details Date Type Department Care Team (Latest Contact Info) Description 06/09/2021 3:00 PM EDT - 06/09/2021 11:59 PM EDT Hospital Encounter Non-Invasive [place] [phone] Elevated blood pressure reading without diagnosis of [...] as needed. fluticasone propionate (FLONASE) 50 mcg/actuation [place], Suspension 1 spray by Each Nare route [...] PM EDT Office Visit Cardiology at [address] [place] [phone] Jaspreet Kinsey MD [facility] [place] [address] 10/28/2023 9:00 AM EDT Office Visit [place] [address] 10/29/2023 10:00 AM EDT Clinical Support [place] [address] 10/29/2023 10:15 AM EDT Procedure [place] [address] 11/01/2023 5:00 PM EDT Office [place] [address] Selene Browning, PhD [facility] [place] [address] 11/22/2023 4:40 PM EDT Office Visit Cardiology at [address] [phone] Porsha Mcdaniels MD [facility] [place] [address] 12/13/2023 10:00 AM EDT Clinical Support [place] [address] [facility] [place] [address] documented as of this encounter Procedures Procedure Name Priority Date/Time Associated Diagnosis Comments ZIOPATCH 48 HRS-15 DAYS Routine 06/09/2021 3:48 PM EDT Elevated blood pressure reading without diagnosis of hypertension documented in this encounter Results * Ziopatch 48 Hrs-15 Days (06/09/2021 3:48 PM EDT) Anatomical Region Laterality Modality Other Narrative 07/01/2021 9:29 AM EDT [facility] ? Zio Patch? Ambulatory Cardiac Event Monitor [...] atrial premature beat conducted with a prolonged AR interval, strongly suggestive of atrioventricular makayla reentrant [...] described ?? Kurt Larose MD, PhD, [facility] Cardiac Electrophysiology Mario Hallman MD CARDIAC SERVICES ORD ERABLES documented in this encounter Visit Diagnoses Diagnosis Elevated blood pressure reading without diagnosis of hypertension documented in this encounter Care Teams Pony Cylinder Press Operator Relationship Specialty Start Date End Date Polo Pearce PA [address] [place] [address] PCP - General Internal Medicine 06/09/21 documented as of this encounter
--- OUTSIDE RECORDS SUMMARY | 2023-10-22 00:45 | XMS_ITS | Encounter Summary ---
Author Organization [facility] [place] [address] Care Team Providers Care Engraved Roller Inspector Name Role Phone Tim Rogers DNP Primary Care Provider Encounter Details Date Type Department Care Team (Late st Contact Info) Description 05/27/2021 Ancillary Procedure [place] [address] Tim Rogers DNP [address] [place], [place] [id number] Social History Tobacco Use Types Packs/Day Years [...] PM EDT Office Visit Cardiology at [address] [address] Jaspreet Kinsey MD [facility] [place] [address] 10/28/2023 9:00 AM EDT Office Visit [place] [address] 10/29/2023 10:00 AM EDT Clinical Support [place] [address] 10/29/2023 10:15 AM EDT Procedure visit [place] [address] 11/01/2023 5:00 PM EDT Office Visit [place] [address] Selene Browning, PhD [facility] [place] [address] 11/22/2023 4:40 PM EDT Office Visit Cardiology at [address] [phone] Porsha Mcdaniels MD [facility] [place] [address] 12/13/2023 10:00 AM EDT Clinical Support [place] [address] Lucero Romero, AL[facility] [place] [address] documented as of this encounter Procedures Procedure Name Priority Date/Time Associated Diagnosis Comments FILM LIBRARY STORAGE ONLY CT ABDOMEN AND PELVIS Routine 05/27/2021 12:00 AM EDT documented in this encounter Results * Film Library- Storage Only CT Abdomen & Pelvis (05/27/2021 12:00 AM EDT) Narrative RAD - 05/30/2021 2:30 PM EDT This exam is auto-finalizing. It's purpose is for storage only. Tim Rogers DNP [facility] FILM LIBRARY OR DERABLES [place], [place] documented in this encounter Visit Diagnoses Not on filedocumented in this encounter Care Teams Engraved Roller Inspector Relationship Specialty Start Date End Date Tim Rogers DNP PCP - General Family Medicine 08/28/19 06/08/21 documented as of this encounter
--- OUTSIDE RECORDS SUMMARY | 2023-10-22 00:45 | XMS_ITS | Encounter Summary ---
Author Organization [facility] [place] [address] Care Team Providers Care Sterilizer Operator Name Role Phone Tim Rogers DNP Primary Care Provider Encounter Details Date Type Department Care Team (Late st Contact Info) Description 05/02/2021 Ancillary Procedure [place] [address] Tim Rogers DNP [address] [place], [place] [id number] Social History Tobacco Use Types Packs/Day Years [...] PM EDT Office Visit Cardiology at [address] [address] Jaspreet Kinsey MD [facility] [address] 10/28/2023 9:00 AM EDT Office [place] [address] 10/29/2023 10:00 AM EDT Clinical [place] [address] 10/29/2023 10:15 AM EDT Procedure [place] [address] 11/01/2023 5:00 PM EDT Office [place] [address] Selene Browning, PhD [facility] [place] [address] 11/22/2023 4:40 PM EDT Office Visit Cardiology at [address] [phone] Porsha Mcdaniels MD [facility] [place] [address] 12/13/2023 10:00 AM EDT Clinical [place] [phone] Lucero Romero, AL[place] [facility] [place] [address] documented as of this encounter Procedures Procedure [...] Rogers DNP IM FILM LIBRARY OR DERABLES [place], [place] documented in this encounter Visit Diagnoses Not on filedocumented in this encounter Care Teams Sterilizer Operator Relationship Specialty Start Date End Date Tim Rogers DNP PCP - General Family Medicine 08/28/19 06/08/21 documented as of this encounter
--- OUTSIDE RECORDS SUMMARY | 2023-10-22 00:45 | XMS_ITS | Encounter Summary ---
Author [facility] [place] [address] Care Team Providers Care Permanent Mold Supervisor Name Role Phone Polo Pearce Primary Care Provider [phone] Reason for Visit * Reason Onset Date Comments Medication Refill 06/10/2021 Jardiance Encounter Details Date Type Department Care Team (Late st Contact Info) Description 06/10/2021 Refill Cardiology at [address] [address] Deja Zaidi PA [facility] [place] [address] Medication Refill (Jardiance) Social History Tobacco Use [...] PM EDT Office Visit Cardiology at [address] [address] Jaspreet Kinsey MD [facility] [place] [address] 10/28/2023 9:00 AM EDT Office [place] [address] 10/29/2023 10:00 AM EDT Clinical [place] [address] 10/29/2023 10:15 AM EDT Procedure [place] [address] 11/01/2023 5:00 PM EDT Office [place] [address] Selene Browning, PhD [facility] [place] [address] 11/22/2023 4:40 PM EDT Office Visit Cardiology at [address] [phone] Porsha Mcdaniels MD [facility] [place] [address] 12/13/2023 10:00 AM EDT Clinical [place] [address] Lucero Romero, ALVA [facility] [place] [address] documented as of this encounter Visit Diagnoses Diagnosis Chronic heart failure with preserved ejection fraction documented in this encounter Care Teams Permanent Mold Supervisor Relationship Specialty Start Date End Date Polo Pearce PA [address] [place] [address] PCP - General Internal Medicine 06/09/21 documented as of this encounter
--- OUTSIDE RECORDS SUMMARY | 2023-10-22 00:45 | XMS_ITS | Encounter Summary ---
[place] [address] Care Team Providers Care Ict Programmer Name Role Phone Tim Rogers DNP Primary Care Provider [phone] Reason for Visit * Reason Onset Date Comments Appointment 09/12/2020 Follow up Encounter Details Date Type Department Care Team (Late st Contact Info) Description 09/12/2020 [place] [phone] Renetta Graham RN Appointment (Follow up) Social [...] PM EDT Office Visit Cardiology at [address] [address] Jaspreet Kinsey MD [facility] [place] [address] 10/28/2023 9:00 AM EDT Office Visit [place] [address] 10/29/2023 10:00 AM EDT Clinical Support [place] [address] 10/29/2023 10:15 AM EDT Procedure visit [place] [address] 11/01/2023 5:00 PM EDT Office [place] [address] Selene Browning, PhD [facility] [place] [address] 11/22/2023 4:40 PM EDT Office Visit Cardiology at [address] [phone] Porsha Mcdaniels MD [facility] [place] [address] 12/13/2023 10:00 AM EDT Clinical [place] [address] Lucero Romero, RD [facility] [place] [address] documented as of this encounter Visit Diagnoses Not on filedocumented in this encounter Care Teams Ict Programmer Relationship Specialty Start Date End Date Tim Rogers DNP PCP - General Family Medicine 08/28/19 06/08/21 documented as of this encounter
--- OUTSIDE RECORDS SUMMARY | 2023-10-22 00:45 | XMS_ITS | Encounter Summary ---
[place] [address] Care Team Providers Care Hog Counter Name Role Phone Polo Pearce Primary Care Provider [phone] Encounter Details Date Type Department Care Team (Late st Contact Info) Description 06/10/2021 Telephone Cardiology at [address] [phone] Lashonda Menjivar, RN Social History Tobacco Use [...] 90 days of Jardiance, to [facility]. Prescription pended. Lashonda Menjivar (Jodie), RN, BSN Cardiology Ambulatory [facility] documented in this encounter Plan of Treatment Upcoming Encounters Date Type Department Care Team (Late st Contact Info) Description 10/26/2023 4:00 PM EDT Office Visit Cardiology at [address] [place] [address] Jaspreet Kinsey MD [facility] [place] [address] 10/28/2023 9:00 AM EDT Office Visit Gastroenterology at [place] [address] 10/29/2023 10:00 AM EDT Clinical Support Gastroenterology [place] [address] 10/29/2023 10:15 AM EDT Procedure visit Gastroenterology at [place] [address] 11/01/2023 5:00 PM EDT Office Visit [place] [phone] Selene Browning, PhD [facility] [place] [address] 11/22/2023 4:40 PM EDT Office Visit Cardiology at [place] [phone] Porsha Mcdaniels MD [facility] [place] [address] 12/13/2023 10:00 AM EDT Clinical Support [place] [phone] [facility] [place] [address] documented as of this encounter Visit Diagnoses Not on filedocumented in this encounter Care Teams Hog Counter Relationship Specialty Start Date End Date Polo Pearce PA [address] [place] [address] PCP - General Internal Medicine 06/09/21 documented as of this encounter
--- OUTSIDE RECORDS SUMMARY | 2023-10-22 00:46 | XMS_ITS | Encounter Summary ---
Author Organization [facility] Address [facility] [place] [address] Care Team Providers Care Gluing Crew Leader Name Role Phone Tim Rogers DNP Primary Care Provider Encounter Details Date Type Department Care Team (Late st Contact Info) Description 08/28/2019 External [place] [address] Social History Tobacco Use Types Packs/Day Years [...] PM EDT Office Visit Cardiology at [address] [phone] Jaspreet Kinsey MD [facility] [place] [address] 10/28/2023 9:00 AM EDT Office [place] [address] 10/29/2023 10:00 AM EDT Clinical [place] [address] 10/29/2023 10:15 AM EDT Procedure [place] [address] 11/01/2023 5:00 PM EDT Office Visit Gastroenterology at [place] [phone] Selene Browning, PhD [facility] [address] 11/22/2023 4:40 PM EDT Office [place] [address] Porsha Mcdaniels MD [facility] [place] [address] 12/13/2023 10:00 AM EDT Clinical Support Gastroenterology at [place] [phone] Lucero Romero, [place] [facility] [place] [address] documented as of this encounter Procedures Procedure Name Priority Date/Time Associated Diagnosis Comments ECG SCAN Routine 08/28/2019 documented in this encounter Results * Scan Doc: ECG (08/28/2019) Historical Provider MD FLEMING MGR SCAN EX T ORDR/RSLT documented in this encounter Visit Diagnoses Not on filedocumented in this encounter Care Teams Gluing Crew Leader Relationship Specialty Start Date End Date iTm Rogers DNP PCP - General Family Medicine 08/28/19 06/08/21 documented as of this encounter
--- OUTSIDE RECORDS SUMMARY | 2023-10-22 00:46 | XMS_ITS | Encounter Summary ---
Author Organization [facility] Address [facility] [place] [address] Care Team Providers Care Account Supervisor Name Role Phone Tim Rogers DNP Primary Care Provider Encounter Details Date Type Department Care Team (Late st Contact Info) Description 04/26/2020 [place] [address] Bull Fitzgerald MD [facility] [place] [address] Dyspnea, unspecified type (Primary Dx) Social History [...] PM EDT Office Visit Cardiology at [address] [phone] Jaspreet Kinsey MD [facility] [place] [address] 10/28/2023 9:00 AM EDT Office Visit [place] [address] 10/29/2023 10:00 AM EDT Clinical Support [place] [address] 10/29/2023 10:15 AM EDT Procedure visit [place] [address] 11/01/2023 5:00 PM EDT Office [place] [phone] Selene Browning, PhD [facility] [place] [address] 11/22/2023 4:40 PM EDT Office Visit Cardiology at [address] [phone] Porsha Mcdaniels MD [facility] [place] [address] 12/13/2023 10:00 AM EDT Clinical [place] [address] Lucero Romero, AL[place] [facility] [place] [address] documented as of this encounter Results * Pulmonary Function Testing (08/01/2020 12:32 PM EDT) Pathologist [facility] FVC Actual Pre-BD 2.68 L COMPAS PFT [...] / FVC LLN 69 % COMPAS PFT RBG83-80 Actual Pre-BD 3.14 L/s COMPAS PFT TEK55-26 Pre-BD % of Predicted 116 % COMPAS PFT DPK39-17 Predicted 2.70 L/s COMPAS PFT VPI28-35 Pre-BD Z-Score 0.51 COMPAS PFT FVC Actual [...] PFT FEV1/FVC Post-BD Z-Score 1.94 COMPAS PFT OHO92-72 Actual Post-BD 4.26 L/s COMPAS PFT VQS47-37 Post-BD % of Predicted 158 % COMPAS PFT CMJ05-08 Post-BD Z-Score 1.67 COMPAS PFT DLCO Hb [...] type documented in this encounter Care Teams Account Supervisor Relationship Specialty Start Date End Date Tim Rogers DNP PCP - General Family Medicine 08/28/19 06/08/21 documented as of this encounter
--- OUTSIDE RECORDS SUMMARY | 2023-10-22 00:46 | XMS_ITS | Encounter Summary ---
Author Organization [facility] [place] [address] Care Team Providers Care Dental Hygiene Instructor Name Role Phone Tim Rogers DNP Primary Care Provider [phone] Encounter Details Date Type Department Care Team (Late st Contact Info) Description 08/02/2020 Telephone [place] [address] Olive Frazier Social History Tobacco Use Types [...] Office Visit Cardiology at [address] [address] [facility] [place] [address] 10/28/2023 9:00 AM EDT Office [place] [address] 10/29/2023 10:00 AM EDT Clinical Support [place] [address] 10/29/2023 10:15 AM EDT Procedure [place] [address] 11/01/2023 5:00 PM EDT Office Visit Gastroenterology at [place] [phone] Selene Browning, PhD [facility] [place] [address] 11/22/2023 4:40 PM EDT Office Visit Cardiology at [place] [phone] [facility] [place] [address] 12/13/2023 10:00 AM EDT Clinical [place] [address] Lucero Romero, ALVA [facility] [place] [address] documented as of this encounter Visit Diagnoses Not on filedocumented in this encounter Care Teams Dental Hygiene Instructor Relationship Specialty Start Date End Date Tim Rogers DNP PCP - General Family Medicine 08/28/19 06/08/21 documented as of this encounter
--- OUTSIDE RECORDS SUMMARY | 2023-10-22 00:46 | XMS_ITS | Encounter Summary ---
Author Organization [facility] [place] [address] Care Team Providers Care Nylon Winder Name Role Phone Tim Rogers DNP Primary Care Provider [phone] Encounter Details Date Type Department Care Team (Late st Contact Info) Description 08/28/2019 [place] [address] Kia Angelo MD [facility] [place] [address] Social History Tobacco Use Types Packs/Day Years [...] Iyer, Dr. Weathers Patient Location: [facility] ED Reason for call: transfer request [...] and manage patient in the [facility] ED overnight pending bed availability (they [...] PM EDT Office Visit Cardiology at [address] [place] [address] Jaspreet Kinsey MD [facility] [place] [address] 10/28/2023 9:00 AM EDT Office Visit [place] [address] 10/29/2023 10:00 AM EDT Clinical Support [place] [address] 10/29/2023 10:15 AM EDT Procedure visit [place] [address] 11/01/2023 5:00 PM EDT Office [place] [phone] Selene Browning, [facility] [place] [address] 11/22/2023 4:40 PM EDT Office Visit Cardiology at [address] [phone] Porsha Mcdaniels MD [facility] [place] [address] 12/13/2023 10:00 AM EDT Clinical [place] [phone] [facility] [place] [address] documented as of this encounter Visit Diagnoses Not on filedocumented in this encounter Care Teams Nylon Winder Relationship Specialty Start Date End Date Tim Rogers DNP PCP - General Family Medicine 08/28/19 06/08/21 documented as of this encounter
--- OUTSIDE RECORDS SUMMARY | 2023-10-22 00:46 | XMS_ITS | Encounter Summary ---
Author Organization [facility] Address [facility]u [facility] [place] [address] Care Team Providers Care Field Care Coordinator Name Role Phone Dustin Romero MD Primary Care Provider [phone] Reason for Visit * Reason Comments Allergic Rhinitis Encounter Details Date Type Department Care Team (Late st Contact Info) Description 06/26/2010 9:15 AM EDT [place] [address] Lashonda York MD [facility] [place] [address] Asthma (Primary Dx); Rhinitis; Rhinitis, nonallergic, chronic [...] pollen: Axel Tree pollen: Birch, Shay, Maple, [place], Beech, [place]pre pollen: Anderson's Quarters, Short Ragweed, Pigweed, Molds: [...] PM EDT Office Visit Cardiology at [address] [address] Jaspreet Kinsey MD [facility] [place] [address] 10/28/2023 9:00 AM EDT Office Visit [place] [address] 10/29/2023 10:00 AM EDT Clinical Support [place] [address] 10/29/2023 10:15 AM EDT Procedure visit [place] [address] 11/01/2023 5:00 PM EDT Office [place] [address] Selene Browning, PhD [facility] [place] [address] 11/22/2023 4:40 PM EDT Office Visit Cardiology at [place] [phone] Porsha Mcdaniels MD [facility] [place] [address] 12/13/2023 10:00 AM EDT Clinical Support Gastroenterology at [place] [phone] Lucero Romero, [place] [facility] [place] [address] Scheduled Orders Name Type Priority Associated Diagnoses Orde r Schedule Spirometry without bronchodilator PFT Routine Asthma Ordered: 06/26/2010 documented as of this encounter Visit Diagnoses Diagnosis Asthma- Primary Unspecified asthma Rhinitis Chronic rhinitis Rhinitis, nonallergic, chronic Chronic rhinitis documented in this encounter Care Teams Field Care Coordinator Relationship Specialty Start Date End Date Dustin Romero MD [facility] [address] [place] [address] PCP - General 06/11/10 08/27/19 documented as of this encounter
--- OUTSIDE RECORDS SUMMARY | 2023-10-22 00:46 | XMS_ITS | Encounter Summary ---
Author Organization Formerly [facility] [place] [address] Care Team Providers Care Calender Let Off Operator Name Role Phone Tim Rogers DNP Primary Care Provider [phone] Reason for Visit * Reason Comments Referral Dyspnea On Exertion * Consultation (Routine) - Specialty Diagnoses / Procedures Referred By Jayant harris Referred To Contact Pulmonology Diagnoses Other forms of dyspnea Virginia Neal MD [facility] [address] [place] [address] [facility] Pulmonology [address] [place] [phone] Referral ID Status Reason Start Date Expiration Date V isits Requested Visits Authorized [id number] Consult, Test [facility] PCP Updated and/or Approved 04/05/2020 10/02/2020 6 6 Encounter Details Date Type Department Care Team (Latest Contact Info) Description 08/01/2020 1:00 PM EDT Office [place] [phone] Beto Miller MD [facility] [place] [address] Asthma, chronic, moderate persistent, uncomplicated [...] Miller MD - 08/01/2020 1:00 PM EDT [facility] Section of Pulmonary Medicine Outpatient Consultation Date of Encounter: 08/01/2020 Referring Provider: Virginia Neal Md [address] [place] [address] PCP: Tim Rogers APRN [address] [place] [address] Reason for Consult: I was asked to [...] unable to breathe and was sent to [facility] for the possibility of non-ST elevation myocardial [...] ONCE ??? fluticasone propionate (FLONASE) 50 mcg/actuation [place], Suspension 1 spray by Each Nare route [...] CT scan of the chest performed in [facility]. 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 She has been prescribed Symbicort but [...] MD Pulmonary and Critical Care Medicine Pager #[phone] documented in this encounter Plan of Treatment Upcoming Encounters Date Type Department Care Team (Late st Contact Info) Description 10/26/2023 4:00 PM EDT Office Visit Cardiology at [address] [phone] Jaspreet Kinsey MD [facility] [place] [address] 10/28/2023 9:00 AM EDT Office [place] [address] 10/29/2023 10:00 AM EDT Clinical [place] [address] 10/29/2023 10:15 AM EDT Procedure [place] [address] 11/01/2023 5:00 PM EDT Office [place] [address] Selene Browning, PhD [facility] [place] [address] 11/22/2023 4:40 PM EDT Office Visit Cardiology at [address] [phone] Porsha Mcdaniels MD [facility] [place] [address] 12/13/2023 10:00 AM EDT Clinical [place] [phone] [facility] [place] [address] documented as of this encounter Visit Diagnoses Diagnosis Asthma, chronic, moderate persistent, uncomplicated documented in this encounter Care Teams Calender Let Off Operator Relationship Specialty Start Date End Date Tim Rogers DNP PCP - General Family Medicine 08/28/19 06/08/21 documented as of this encounter
--- OUTSIDE RECORDS SUMMARY | 2023-10-22 00:46 | XMS_ITS | Encounter Summary ---
Author Organization [facility] [place] [address] Care Team Providers Care Milliner Helper Name Role Phone Tim Rogers DNP Primary Care Provider [phone] Encounter Details Date Type Department Care Team (Late Contact Info) Description 07/12/2020 [place] [address] Jo Ann Colon Social History Tobacco Use [...] PM EDT Office Visit Cardiology at [address] [phone] [facility] [place] [address] 10/28/2023 9:00 AM EDT Office [place] [address] 10/29/2023 10:00 AM EDT Clinical [place] [address] 10/29/2023 10:15 AM EDT Procedure [place] [address] 11/01/2023 5:00 PM EDT Office Visit Gastroenterology at [place] [phone] Selene Browning, PhD [facility] [place] [address] 11/22/2023 4:40 PM EDT Office Visit Cardiology at [place] [phone] [facility] [place] [address] 12/13/2023 10:00 AM EDT Clinical [place] [address] Lucero Romero, [facility] [place] [place] [address] documented as of this encounter Visit Diagnoses Not on filedocumented in this encounter Care Teams Milliner Helper Relationship Specialty Start Date End Date Tim Rogers DNP PCP - General Family Medicine 08/28/19 06/08/21 documented as of this encounter
--- OUTSIDE RECORDS SUMMARY | 2023-10-22 00:46 | XMS_ITS | Encounter Summary ---
[place] [address] Care Team Providers Care Busgirl Name Role Phone Tim Rogers DNP Primary Care Provider [phone] Reason for Visit * Auth/Cert Specialty Diagnoses / Procedures Referred By Jayant harris Referred To Contact Diagnoses NSTEMI (non-ST elevated myocardial infarction) NSTEMI Procedures EMERGNECY IPI Referral ID Status Reason Start Date Expiration Date Visits Re quested Visits Authorized [id number] 1 1 Encounter Details Date Type Department Care Team (Late st Contact Info) Description 08/30/2019 1:00 PM EDT - 08/30/2019 2:00 PM EDT [place] [phone] Jessee Malone MD [facility] [place] [address] CARDIAC CATHETERIZATION Social History Tobacco Use Types [...] this encounter Discharge Summaries * Natalia Urbina, LUNG PULLER - 08/30/2019 5:18 PM EDT Images from the original note were not included. Discharge Summary Patient Name: Indira Roque Patient Age: 49 y.o. Language: Chinese Race: White Ethnicity: Not [...] Topamax 50 mg daily Hospital Course: #NSTEMI Indira Roque is a 49 y.o. female with a 2 month h/o progressive dyspnea on exertion with chest tightness that resolves with rest, in addition, an episode of severe chest pain overnight ~3 weeksago concerning for missed AR. ??In the ED, her EKG was abnormal [...] follow-up visit please call one of the project controls scheduler on Wednesday-Wednesday between the hours of 8A- 5PM. Cardiology Clinic number @ [phone] If off hours contact the cardiac fellow on- call. Hospital Food Beverage Supervisor can help you. Hospital phone number [phone] Return to work: In 1 week Drivin hours post catheterization Follow up Appointments: Doctor Where Phone # Date Time Bouchra Frias APRN [address] / [facility] [address] 09/13/19 8:30 Discharge References/Attachments None Discussed with MD Natalia Lira APRN Pager [phone] 08/31/2019 documented in this encounter Discharge Instructions * Discharge Instructions* Natalia Urbina APRN - 08/31/2019 3:54 PM EDT Call your doctor if: Chest pain, dyspnea, pain or swelling in legs occurs. If you have non-emergent questions, prior to your follow-up visit please call one of the project controls scheduler on Wednesday-Wednesday between the hours of 8A- 5PM. Cardiology Clinic number @ [phone] If off hours contact the cardiac fellow on- call. Hospital Food Beverage Supervisor can help you. [facility] phone number [phone] Return to work: In 1 week Drivin hours post catheterization Follow up Appointments: Doctor Where Phone # Date Time Bouchra Frias APRN [address] / [facility] [address] 09/13/19 8:30 * Attachments The following attachments cannot be sent through Care Everywhere. * Cardiac Catheterization: Left (Chinese) documented in this encounter Medications at Time of Discharge Medication Sig Dispensed Refills Start Date End Date fluticasone propionate (FLONASE) 50 mcg/actuation [place], Suspension 1 spray by Each Nare route [...] PM EDT Respiratory Therapy Bedside Spirometry Patient Indira Roque 49 y.o. 1970 [id number] Spirometry Spirometry performed successfully. Waiting for read [...] Pt wheeled out of the unit with PONY ROLL FINISHER. * Leonardo Jolly - 08/31/2019 12:25 PM EDT Nutrition Services Note - Low Nutrition Acuity Indira Roque is a 49 y.o. female Reason for intervention: education [facility] + NA Nutrition Plan: Patient states that she follows a low sodium restriction a home. Educational Material Guidelines for a Heart Healthy Lifestyle provided. Continue current diet. Educational Material provided. Monitor weight. Encourage good oral intake. Support and encouragement provided. Nutrition will continue to monitor and follow up with patient as needed. Active Orders Diet Daily Healthy Menu Choices/Cardiac diet ([facility]-Diet) Frequency: Effective Now Number of Occurrences: Until [...] consulted in the interim. Leonardo Jolly Pager: [phone] * Manish Benitez MD - 08/31/2019 9:33 AM EDT Images from the original note were not included. Inpatient Cardiology Progress Note Patient Name: Indira Roque Service: MERCANTILE AGENT / PA Responsible Attending: Manish Benitez MD [...] of report for additional findings. [facility] 08/29 Preliminary findings: Right dominant Normal coronary arteries LVEDP 15 Assessment: Indira Roque is a 49 y.o. female with [...] overnight ~3 weeks ago concerning for missed AR. ??In the ED, her EKG was abnormal with diffuse STTW abnormalities but unchanged from prior EKG in 200 7.?Troponin??I??positive at 0.25 (ULN 0.06). ??Vitals stable and patient asymptomatic at rest. ??DDimer positive at 1037 thus??CT-PE protocol??completed. ??No PE or acute aortic pathology. ??She is transferred for further work up of NSTEMI. ??EF 62% and no wall motions seen on echo. [facility] with normal cors and LVEDP 15. [...] EF 62% and no WMA [facility] with normal cors A1C 5.4% Bedside PFTs today ?? FULL CODE Discussed with MD Natalia Lira, LUNG PULLER Pager [phone] 08/31/2019 Cardiology Attending Note I interviewed and examined the patient during comprehensive bedside rounds. I concur with the summary of interval events, active hospital-focused problem list and plan of care as described in the note below. I personally reviewed the medications, laboratory results, treatment decisions and updated the patient. Manish Benitez MD, FACP, FACC Section of Cardiovascular Medicine [facility] Care Director Of Home Care Hospicepaper rewinder [facility] at [facility] This patient meets or has [...] included. Inpatient Cardiology Progress Note Patient Name: Indira Roque Service: MERCANTILE AGENT / PA Responsible Attending: Manish Benitez MD [...] Pertinent Radiographic/Diagnostic Results: No new tests Assessment: Indira Roque is a 49 y.o. female with [...] overnight ~3 weeks ago concerning for missed AR. In the ED, her EKG was abnormal [...] FACP, FACC Section of Cardiovascular Medicine [facility] Care Director Of Home Care Hospicepaper rewinder [facility] at [facility] This patient meets or has [...] not included. 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 fluticasone propionate (FLONASE) 50 mcg/actuation [place], Suspension 1 spray by Each Nare route [...] overnight ~3 weeks ago concerning for missed AR. In the ED, her EKG was abnormal with diffuse STTW abnormalities but unchanged from prior EKG in 2006. Troponin I positive at 0.25 (ULN 0.06). Vitals stable and patient asymptomatic at rest. DDimer positive [id number] thus CT-PE protocol completed. No PE or acute aortic pathology. She is transferred for furtherwork up of NSTEMI. Plan Echo and coronary angiography. TREATMENT PLAN: #NSTEMI Admit to cardiology Trend troponin - 1st negative at [facility] ProBNP 1242; Admit weight 207 lbs; Lasix [...] FACP, FACC Section of Cardiovascular Medicine [facility] Care Director Of Home Care Hospicepaper rewinder [facility] at [facility] This patient meets or has [...] Primary care provider on file: Tim Rogers, LUNG PULLER [phone] Advance Directive on file and Code Status: Full Code Patient???s Functional Status: Independent w/o device Living Situation: lives with Boby Roque (Spouse) [phone] (M) at [address] [place] [address] Supports: Boby, Mother son and daughter Assessment: Patient with no apparent RNCM/SW needs at this time. No housing, transportation, insurance, resources concerns identified at this time. Supports in place to achieve a safe post-hospital transition. No identified barriers to accessing necessary care and/or follow-up after discharge. Plan: Patient to d/c to home when medically ready. transit planning director/Nc Machinist will continue to follow patient???s progress and remain available if situation changes for coordination of care, psychosocial support and/or discharge planning. Angela Loving RN * Brief Op Note - Jessee Malone MD - 08/30/2019 2:31 PM EDT Preliminary Cardiac Catheterization Procedure Note: Patient Name: Indira Roque : [id number] MR#: [id number] Case Date: 08/30/2019 Food Beverage Supervisor: Surgeon(s) and Role: * Jessee Malone MD - Primary * Luis Tatum PA - Fellow Preoperative diagnosis: ?CAD Postoperative diagnosis: * CAD * Procedure(s) performed: [facility] Coronary angio Access: Right radial A [...] for further details. JOCY Montaño 08/30/2019 Pager [phone] * Plan of Care - Efrain Verma [...] PM EDT Office Visit Cardiology at [address] [place] [address] Jaspreet Kinsey MD [facility] [place] [address] 10/28/2023 9:00 AM EDT Office [place] [address] 10/29/2023 10:00 AM EDT Clinical Support [place] [address] 10/29/2023 10:15 AM EDT Procedure visit [place] [address] 11/01/2023 5:00 PM EDT Office [place] [phone] Selene Browning, PhD [facility] [place] [address] 11/22/2023 4:40 PM EDT Office Visit Cardiology at [address] [phone] Porsha Mcdaniels MD [facility] [place] [address] 12/13/2023 10:00 AM EDT Clinical [place] [phone] [facility] [place] [address] documented as of this encounter Procedures Procedure [...] defect (FVC >70%) Zoe Morocho MD Natalia Santana Ciara CUETO PFT ORDERABLES * EKG 12 Lead (08/31/2019 7:05 AM EDT) Ventricular rate 51 BPM MUSE SYSTEM Atrial Rate 51 BPM MUSE SYSTEM P-R Interval 186 ms MUSE SYSTEM QRS Duration 82 ms MUSE SYSTEM Q-T Interval 546 ms MUSE SYSTEM QTC Calculated (Bezet) 503 ms MUSE SYSTEM Calculated P [place] 18 degrees MUSE SYSTEM Calculated R [place] 52 degrees MUSE SYSTEM Calculated T [place] 13 degrees MUSE SYSTEM INTERPRETATION Sinus bradycardia [...] 4:12 AM EDT) Neutrophil % 45.2 % [facility] Neutrophil Absolute 2.73 1.70 - 6.10 x10(3)/mc L [facility] Lymph % 34.8 % [facility] Lymphocytes Abs 2.1 0.9 - 3.2 x10(3)/mc L [facility] Monocyte % 10.1 % [facility] Monocyte Abs 0.6 0.3 - 0.9 x10(3)/mc L [facility] Eos % 8.9 % [facility] Eosinophils Abs 0.5(H) 0.0 - 0.4 x10(3)/mc L [facility] Basophil % 0.8 % [facility] Baso Absolute 0.0 0.0 - 0.1 x10(3)/ L [facility] Immature Gran % 0.20 % [facility] Comment: Immature granulocytes(IG's)percentage and absolute count will include metamyelocytes, myelocytes, and promyelocytes. Blood smears from CBCs yielding IG's will be scanned manually for concordance. If this scan disagrees with the automated IG or if promyelocytes are noted, a manual differential will be performed. Immature Gran Absolute 0.01 0.00 - 0.04 x10(3)/ L [facility] Blood specimen (specimen) 08/31/2019 4:12 AM EDT 08/31/2019 4:29 AM EDT Narrative Resulting Agency Comment Spec In Lab [facility] SANDRA HEMATOLOGY ORDERABLE S Performing Organization Address City/State/[facility] Co de Phone Number [facility] [place] [address] * (ABNORMAL) Hemogram (08/31/2019 4:12 AM EDT) White Blood Cell 6.0 4.0 - 9.5 x10(3)/[facility] Red Blood Cell 5.08 4.00 - 5.21 x10(6)/[facility] Hemoglobin 15.7(H) 11.7 - 15.5 gm/dL [facility] Hematocrit 47.0(H) 35.7 - 45.8 % [facility] Mean Cell Volume 92.5 82.6 - 94.4 fL [facility] Mean Cell Hemoglobin 30.9 27.1 - 32.0 pg [facility] Mean Cell Hemoglobin Concentration 33.4 31.7 - 35.0 gm/dL [facility] Platelet 255 145 - 357 x10(3)/[facility] RDW Standard Deviation 45.3 37.0 - 46.0 fL [facility] RDW coefficient of variation 13.2 11.5 - 14.1 % [facility] Mean Platelet Volume 11.4 7.6 - 12.9 fL [facility] NRBC% auto 0.0 % [facility] NRBC Absolute 0.000 0.000 - 0.000 x10(3)/mc L [facility] Blood specimen (specimen) 08/31/2019 4:12 AM EDT 08/31/2019 4:29 AM EDT Narrative Resulting Agency Comment Spec In Lab [facility] SANDRA HEMATOLOGY ORDERABLE S Performing Organization Address [facility] Co de Phone Number [facility] [place] [address] * Magnesium (08/31/2019 4:12 AM EDT) Magnesium 0.92 0.69 - 1.07 mmol/L [facility] Blood specimen (specimen) 08/31/2019 4:12 AM EDT 08/31/2019 4:29 AM EDT Narrative Resulting Agency Comment Spec In Lab Manish Benitez MD CHEMISTRY ORDERABL ES Performing Organization Address [facility] Co de Phone Number [facility] [place] [address] * (ABNORMAL) BMP w/fasting Glucose (08/31/2019 4:12 AM EDT) Glucose Fasting 91 65 - 99 mg/dL [facility] [...] of Diabetes Mellitus, Position Statement from the [place] [employer]. ??Diabetes Care, Volume 33, Supplement 1, Mar 2009 Blood Urea Nitrogen 21(H) 8 - 18 mg/dL [facility] Creatinine 0.91 0.70 - 1.20 mg/dL [facility] [...] 107 mmol/L [facility] Carbon Dioxide 18(L) 22 - 31 mmol/L [facility] Anion Gap 13 5 - 15 mmol/L [facility] Calcium 9.4 8.5 - 10.5 mg/dL [facility] Est Glomerular Filtration Rate 74 >=60 mL/min/1. 73 m?? [facility] Comment: The eGFR was calculated using the CKD-EPI equation. As with all creatinine based estimates of kidney function, eGFR values calculated with the CKD-EPI equation are not accurate in patients with acute kidney failure, extremes of body mass or the acutely ill. http://[employer]/[facility]AL[facility]kf eGFR 85 >=60 mL/min/1. 73 m?? [facility] Comment: The eGFR was calculated using the CKD-EPI equation. As with all creatinine based estimates of kidney function, eGFR values calculated with the CKD-EPI equation are not accurate in patients with acute kidney failure, extremes of body mass or the acutely ill. http://[employer]/[facility]AL[facility]kf Blood specimen (specimen) 08/31/2019 4:12 AM EDT 08/31/2019 4:29 AM EDT Narrative Resulting Agency Comment Spec In Lab Manish Benitez MD CHEMISTRY ORDERABL ES [facility] [place] [address] * CARDIAC CATHETERIZATION (08/30/2019 2:40 PM EDT) Anatomical Region Laterality Modality Other Narrative 08/30/2019 2:59 PM EDT ?[facility] ? Cardiac Catheterization/Intervention Report ? Patient Name: Neisha, Indira ? Procedure Date: 08/30/2019 ? A #: [id number] ? Primary Physician: Jessee Malone ? Case #: [id number] ? File Name: [id number] ? Catheterization Order Number: [id number] ? [facility] ? Final Report [place], [place] ? Patient Name: ? Indira Neisha ? ID#: ?[id number] ? : ?1970 ? Procedure Date: ? August 30, 2019 ?Case #: ? [id number] ? Room: ? 5 ? Case Physician: ? Jessee T Kira, M.D. ?Start: ?14:11 ? Admission: ??08/29/2019 ? Referring Physician: ??Pooja Iyer ? Procedures: ?* Coronary Angiography ?* Left Heart Catheterization ? History ?Indira Roque is a 49 year old woman. [...] was Urgent. The indication for ?the laborer landscape visit is ACS less than or equal [...] Procedure Note Jessee Malone MD - 08/30/2019 [facility] Cardiac Catheterization/Intervention Report Patient Name: Indira Roque Procedure Date: 08/30/2019 A #: [id number] Primary Physician: Jessee Malone Case #: [id number] File Name: [id number] Catheterization Order Number: [id number] [facility] FinalReport [place], [place] Patient Name: Indira Roque ID#:[id number] :1970 Procedure Date: August 30, 2019 Case #: [id number] Room: 5 Case Physician: Jessee Malone M.D. Start: 14:11 Admission:08/29/2019 Referring Physician: Pooja Iyer Procedures: * Coronary Angiography * Left Heart Catheterization History Indira Roque is a 49 year old woman. The patient's smokingstatus is Never. The patient is also status post an acute non-ST elevation myocardial infarction. Prior to the initiation of this procedure,the patient was designated as ASA Class III. The [facility] clinical frailtyscale is 2: Well. Diagnostic Tests: Prior Coronary Angiography: LV ejection fraction within 6 months is 65%. Medications Prior to Procedure: Aspirin. Indications for Diagnostic Cath: The priority of the diagnostic procedure was Urgent. The indicationfor the laborer landscape visit is ACS less than or equal [...] PM EDT Procedure: ?Transthoracic Echocardiogram Patient: ?NEISHA MARISCAL ?(Age): 1970(49y) Med Rec#: ? [id number] ?Sex: ?F ? Site Loc: ? DH ?Ht / Wt: ??163(cm)/94(kg) Pt. Loc: ?Adult Floor ? BSA: ?1.99 Study Date: ?? 08/30/2019 ?Pt. Type: Inpatient Tape: ? Referring: POOJA IYER J Reading: Jose Chambers ([id number]) Inventory Checker: Jaspreet Oneil [facility] Interpreting Fellow: Poncho Yates ([id number]) Diagnosis: *Non-ST elevation (NSTEMI) myocardial infarction (I21.4) [...] Vmax ?0.35 ? m/sec ? MV deceleration [id number] ?msec ? MV A-wave Vmax ?0.25 ? [...] ? Mid-Inferior ?Normal ? Mid-Inferoseptal ?Normal ? Mobile-Septal ? Normal ? Mobile-Anterior ? Normal ? Mobile-Lateral ?Normal ? Mobile-Inferior ? Normal ? Mobile-Tip ?Normal ? This report has been electronically signed by: Jose Chambers MD ? 08/30/2019 14:21:57 Images reviewed and interpretation verified [facility] Cardiac [facility] Procedure Note Jose Chambers MD - 08/30/2019 Procedure: Transthoracic Echocardiogram Patient: NEISHA VÁSQUEZ(Age): 1970(49y) Med Rec#: [id number] Sex: F Site Loc: [facility] Ht / Wt: 163(cm)/94(kg) Pt. Loc: Adult Floor BSA: 1.99 Study Date: 08/30/2019 Pt. Type: Inpatient Tape: Referring: POOJA IYER J Reading: Jose Chambers ([id number]) Inventory Checker: Jaspreet Oneil RDCS Interpreting Fellow: Poncho Yates ([id number]) Diagnosis: *Non-ST elevation (NSTEMI) myocardial infarction (I21.4) [...] MV E-wave Vmax 0.35 m/sec MV deceleration [id number] msec MV A-wave Vmax 0.25 m/sec MV [...] Normal Mid-Posterolateral Normal Mid-Inferior Normal Mid-Inferoseptal Normal Mobile-Septal Normal Mobile-Anterior Normal Mobile-Lateral Normal Mobile-Inferior Normal Mobile-Tip Normal This report has been electronically signed by: Jose Chambers MD 08/30/2019 14:21:57 Images reviewed and interpretation verified [facility] Manish Benitez MD ECHO ORDERABLES * EKG 12 Lead (08/30/2019 10:28 AM EDT) Ventricular rate 52 BPM MUSE SYSTEM Atrial Rate 52 BPM MUSE SYSTEM P-R Interval 162 ms MUSE SYSTEM QRS Duration 84 ms MUSE SYSTEM Q-T Interval 536 ms MUSE SYSTEM QTC Calculated (Bezet) 498 ms MUSE SYSTEM Calculated P [place] -9 degrees MUSE SYSTEM Calculated R [place] 43 degrees MUSE SYSTEM Calculated T [place] -27 degrees MUSE SYSTEM INTERPRETATION Sinus bradycardia [...] 2:53 AM EDT) UF Heparin 0.44 IU/mL [facility] Comment: [...] MD HEMATOLOGY ORDERAB LES Performing Organization Address City/[facility]/ZIP Co de Phone Number [facility] [place] [address] * (ABNORMAL) Differential, Automated (08/30/2019 2:53 AM EDT) Neutrophil % 52.4 % [facility] Neutrophil Absolute 3.85 1.70 - 6.10 x10(3)/mc L [facility] Lymph % 29.3 % [facility] Lymphocytes Abs 2.2 0.9 - 3.2 x10(3)/mc L [facility] Monocyte % 9.1 % [facility] Monocyte Abs 0.7 0.3 - 0.9 x10(3)/mc L [facility] Eos % 8.6 % [facility] Eosinophils Abs 0.6(H) 0.0 - 0.4 x10(3)/mc L [facility] Basophil % 0.5 % [facility] Baso Absolute 0.0 0.0 - 0.1 x10(3)/mc L [facility] Immature Gran % 0.10 % [facility] Comment: Immature granulocytes(IG's)percentage and absolute count will include metamyelocytes, myelocytes, and promyelocytes. Blood smears from CBCs yielding IG's will be scanned manually for concordance. If this scan disagrees with the automated IG or if promyelocytes are noted, a manual differential will be performed. Immature Gran Absolute 0.01 0.00 - 0.04 x10(3)/mc L [facility] Blood specimen (specimen) 08/30/2019 2:53 AM EDT 08/30/2019 3:01 AM EDT Narrative Resulting Agency Comment Spec In Lab [facility] SANDRA HEMATOLOGY ORDERABLE S Performing Organization Address [facility]/ZIP Co de Phone Number [facility] [place] [address] * (ABNORMAL) Hemogram (08/30/2019 2:53 AM EDT) White Blood Cell 7.4 4.0 - 9.5 x10(3)/mc L [facility] Red Blood Cell 4.84 4.00 - 5.21 x10(6)/mc L [facility] Hemoglobin 14.8 11.7 - 15.5 gm/dL [facility] Hematocrit 44.8 35.7 - 45.8 % [facility] Mean Cell Volume 92.6 82.6 - 94.4 fL [facility] Mean Cell Hemoglobin 30.6 27.1 - 32.0 pg [facility] Mean Cell Hemoglobin Concentration 33.0 31.7 - 35.0 gm/dL [facility] Platelet 272 145 - 357 x10(3)/[facility] RDW Standard Deviation 46.2(H) 37.0 - 46.0 fL [facility] RDW coefficient of variation 13.5 11.5 - 14.1 % [facility] Mean Platelet Volume 10.9 7.6 - 12.9 fL [facility] NRBC% auto 0.0 % [facility] NRBC Absolute 0.000 0.000 - 0.000 x10(3)/ L [facility] Blood specimen (specimen) 08/30/2019 2:53 AM EDT 08/30/2019 3:01 AM EDT Narrative Resulting Agency Comment Spec In Lab [place] SANDRA HEMATOLOGY ORDERABLE S [facility] [place] [address] * Magnesium (08/30/2019 2:53 AM EDT) Magnesium 0.90 0.69 - 1.07 mmol/L [facility] Blood specimen (specimen) 08/30/2019 2:53 AM EDT 08/30/2019 3:01 AM EDT Narrative Resulting Agency Comment Spec In Lab Manish Benitez MD CHEMISTRY ORDERABL ES [facility] [facility] [place] [address] * (ABNORMAL) BMP w/fasting Glucose (08/30/2019 2:53 AM EDT) Glucose Fasting 102(H) 65 - 99 mg/dL [facility] of Diabetes Mellitus, Position Statement from the [place] [employer]. ??Diabetes Care, Volume 33, Supplement 1, Mar 2009 Blood Urea Nitrogen 18 8 - 18 mg/dL [facility] Creatinine 1.09 0.70 - 1.20 mg/dL [facility] 107 mmol/L [facility] Carbon Dioxide 19(L) 22 - 31 mmol/L [facility] Anion Gap 17(H) 5 - 15 mmol/L [facility] Calcium 9.0 8.5 - 10.5 mg/dL [facility] Est Glomerular Filtration Rate 59(L) >=60 mL/min/1. 73 m?? [facility] Comment: The eGFR was calculated using the CKD-EPI equation. As with all creatinine based estimates of kidney function, eGFR values calculated with the CKD-EPI equation are not accurate in patients with acute kidney failure, extremes of body mass or the acutely ill. [email or web address]/[facility] BUFFALOnkf eGFR 69 >=60 mL/min/1. 73 m?? [facility] Comment: The eGFR was calculated using the CKD-EPI equation. As with all creatinine based estimates of kidney function, eGFR values calculated with the CKD-EPI equation are not accurate in patients with acute kidney failure, extremes of body mass or the acutely ill. [email or web address]/[facility]FFALOnkf Blood specimen (specimen) 08/30/2019 2:53 AM EDT 08/30/2019 3:01 AM EDT Narrative Resulting Agency Comment Spec In Lab Manish Benitez MD CHEMISTRY ORDERABL ES Performing Organization Address [facility] Co de Phone Number [facility] [place] [address] * Triglyceride (08/30/2019 2:53 AM EDT) Triglyceride 203 mg/dL [facility] Comment: Average Risk/Lower Risk: <150 mg/dL Borderline High Risk: 150-199 mg/dL High Risk: 200-499 mg/dL Very High Risk: >en=266 mg/dL Blood specimen (specimen) 08/30/2019 2:53 AM EDT 08/30/2019 3:01 AM EDT Narrative Resulting Agency Comment Spec In Lab Manish Benitez MD CHEMISTRY ORDERABL ES [facility] [place] [address] * HDL/Cholesterol Profile (08/30/2019 2:53 AM EDT) Cholesterol, Total 220 mg/dL [facility] Comment: Lower Risk: <200 mg/dL Average Risk: 200-239 mg/dL Higher Risk: >kf=711 mg/dL HDL Cholesterol 34 mg/dL [facility] Comment: Males: ?? Higher Risk: <40 mg/dL Females: ?? HIgher Risk: <50 mg/dL Cholesterol/HDL Ratio 6.5 ratio [facility] Chol/HDL Interpretation See Note [facility] Comment: Lipid management should be guided by a patient? s ASCVD risk, goals and preferences. ACC/AHA Guidelines recommend high intensity statin if clinical ASCVD or LDL greater than or equal to 190 mg/dL. http://[email or web address]-[email or web address] Measure LDL if Total Cholesterol minus HDL Cholesterol is greater than 220 mg/dL. Adults aged 40-75 with LDL 70-189 mg/dL should have their 10 year ASCVD risk estimated with the ACC/AHA ASCVD risk donor relations associate http://tools.acc.org/UWGXO-Mnks-Tnegzsklq/ Statin should be discussed if risk greater [...] Lab Manish Benitez MD CHEMISTRY ORDERABL ES [facility] [place] [address] * LDL Cholesterol, Direct (08/30/2019 2:53 AM EDT) LDL Cholesterol, Direct 165 mg/dL [facility] Comment: Lowest Risk: <100 mg/dL Lower Risk: 100-129 mg/dL Borderline High Risk: 130-159 mg/dL High Risk: 160-189 mg/dL Very High Risk: >gi=307 mg/dL Blood specimen (specimen) 08/30/2019 2:53 AM EDT 08/30/2019 3:01 AM EDT Narrative Resulting Agency Comment Spec In Lab Manish Benitez MD CHEMISTRY ORDERABL ES [facility] [place] [address] * Hemoglobin A1c (08/30/2019 2:53 AM EDT) Hemoglobin A1c 5.4 4.3 - 5.6 % [facility] Mellitus, Diabetes Care 2013; 36: Suppl. 1, S67-90 Estimated Average Glucose 108 mg/dL [facility] Comment: eAG equivalents for [...] into estimated average glucose values. ??Diabetes Care 2008:31(8):0865-8666. Blood specimen (specimen) 08/30/2019 2:53 AM EDT 08/30/2019 3:01 AM EDT Narrative Resulting Agency Comment Spec In Lab Manish Benitez MD CHEMISTRY ORDERABL ES Performing Organization Address [facility] Co de Phone Number [facility] [place] [address] * CK (08/30/2019 2:53 AM EDT) Creatine Kinase 82 0 - 160 unit/L [facility] Blood specimen (specimen) 08/30/2019 2:53 AM EDT 08/30/2019 3:01 AM EDT Narrative Resulting Agency Comment Spec In Lab Manish Benitez MD CHEMISTRY ORDERABL ES Performing Organization Address [facility] de Phone Number [facility] [place] [address] * Troponin (08/30/2019 2:53 AM EDT) Pathologist [facility] Troponin-T <0.01 0.00 - 0.00 ng/mL [facility] Comment: The 99th percentile for Troponin T is less than 0.01 ng/mL, any detectable cTnT concentration using this assay should be considered elevated. According to the third universal definition of myocardial infarction the following criteria with a clinical presentation consistent with acute myocardial ischemia meets the diagnosis for a myocardial infarction (AR). Detection of a rise and/or fall of cTnT, with at least one value greater than the 99th percentile (> or = 0.01) and with at least one of the following ?? Symptoms of ischemia ?? New or presumed new significant WS-rihhmcz-V wave (ST-T) changes or new left bundle [...] additional sample may be indicated. Reference: Third Kingsley Definition of Myocardial Infarction. Journal of the [place] College [employer] 2012;60:1581-98 Blood specimen (specimen) 08/30/2019 2:53 AM EDT 08/30/2019 3:01 AM EDT Narrative Resulting Agency Comment Spec In Lab Manish Benitez MD CHEMISTRY ORDERABL ES [facility] [place] [address] * (ABNORMAL) Differential, Automated (08/29/2019 8:30 PM EDT) Neutrophil % 56.5 % [facility] Neutrophil Absolute 3.58 1.70 - 6.10 x10(3)/mc L [facility] Lymph % 25.9 % [facility] Lymphocytes Abs 1.6 0.9 - 3.2 x10(3)/mc L [facility] Monocyte % 8.8 % [facility] Monocyte Abs 0.6 0.3 - 0.9 x10(3)/mc L [facility] Eos % 7.7 % [facility] Eosinophils Abs 0.5(H) 0.0 - 0.4 x10(3)/mc L [facility] Basophil % 0.8 % [facility] Baso Absolute 0.0 0.0 - 0.1 x10(3)/mc L [facility] Immature Gran % 0.30 % [facility] Comment: Immature granulocytes(IG's)percentage and absolute count will include metamyelocytes, myelocytes, and promyelocytes. Blood smears from CBCs yielding IG's will be scanned manually for concordance. If this scan disagrees with the automated IG or if promyelocytes are noted, a manual differential will be performed. Immature Gran Absolute 0.02 0.00 - 0.04 x10(3)/ L [facility] Blood specimen (specimen) 08/29/2019 8:30 PM EDT 08/29/2019 9:11 PM EDT Narrative Resulting Agency Comment Spec In Lab Abeba SANDRA HEMATOLOGY ORDERABLE S Performing Organization Address City/State/[facility] Co de Phone Number [facility] [place] [address] * (ABNORMAL) Hemogram (08/29/2019 8:30 PM EDT) White Blood Cell 6.3 4.0 - 9.5 x10(3)/[facility] Red Blood Cell 5.03 4.00 - 5.21 x10(6)/[facility] Hemoglobin 15.3 11.7 - 15.5 gm/dL [facility] Hematocrit 46.4(H) 35.7 - 45.8 % [facility] Mean Cell Volume 92.2 82.6 - 94.4 fL [facility] Mean Cell Hemoglobin 30.4 27.1 - 32.0 pg [facility] Mean Cell Hemoglobin Concentration 33.0 31.7 - 35.0 gm/dL [facility] Platelet 267 145 - 357 x10(3)/[facility] RDW Standard Deviation 46.4(H) 37.0 - 46.0 [facility] RDW coefficient of variation 13.6 11.5 - 14.1 % [facility] Mean Platelet Volume 11.3 7.6 - 12.9 fL [facility] NRBC% auto 0.0 % [facility] NRBC Absolute 0.000 0.000 - 0.000 x10(3)/ L [facility] Blood specimen (specimen) 08/29/2019 8:30 PM EDT 08/29/2019 9:11 PM EDT Narrative Resulting Agency Comment Spec In Lab Abeba SANDRA HEMATOLOGY ORDERABLE S Performing Organization Address [facility] de Phone Number [facility] [place] [address] * Heparin (unfractionated) Level (08/29/2019 8:30 PM EDT) UF Heparin 0.46 IU/mL [facility] Comment: [...] HEMATOLOGY ORDERAB LES Performing Organization Address [facility] Co de Phone Number [facility] [place] [address] * CK (08/29/2019 8:30 PM EDT) Creatine Kinase 94 0 - 160 unit/L [facility] Blood specimen (specimen) 08/29/2019 8:30 PM EDT 08/29/2019 9:11 PM EDT Narrative Resulting Agency Comment Spec In Lab Manish Benitez MD CHEMISTRY ORDERABL ES Performing Organization Address [facility] Co de Phone Number [facility] [place] [address] * Troponin (08/29/2019 8:30 PM EDT) Troponin-T <0.01 0.00 - 0.00 ng/mL [facility] Comment: The 99th percentile for Troponin T is less than 0.01 ng/mL, any detectable cTnT concentration using this assay should be considered elevated. According to the third universal definition of myocardial infarction the following criteria with a clinical presentation consistent with acute myocardial ischemia meets the diagnosis for a myocardial infarction (AR). Detection of a rise and/or fall of cTnT, with at least one value greater than the 99th percentile (> or = 0.01) and with at least one of the following ?? Symptoms of ischemia ?? New or presumed new significant SH-oyfbqso-W wave (ST-T) changes or new left bundle [...] additional sample may be indicated. Reference: Third Kingsley Definition of Myocardial Infarction. Journal of the [place] College [employer] 2012;60:1581-98 Blood specimen (specimen) 08/29/2019 8:30 PM EDT 08/29/2019 9:11 PM EDT Narrative Resulting Agency Comment Spec In Lab Manish Benitez MD CHEMISTRY ORDERABL ES Performing Organization Address [facility]/ZIP Co de Phone Number [facility] [place] [address] * EKG 12 Lead (08/29/2019 4:19 PM EDT) Ventricular rate 67 BPM MUSE SYSTEM Atrial Rate 67 BPM MUSE SYSTEM P-R Interval 164 ms MUSE SYSTEM QRS Duration 80 ms MUSE SYSTEM Q-T Interval 478 ms MUSE SYSTEM QTC Calculated (Bezet) 505 ms MUSE SYSTEM Calculated P [place] 34 degrees MUSE SYSTEM Calculated R [place] 30 degrees MUSE SYSTEM Calculated T [place] -29 degrees MUSE SYSTEM INTERPRETATION Demand pacemaker; [...] 3:10 PM EDT) Neutrophil % 58.3 % [facility] Neutrophil Absolute 3.79 1.70 - 6.10 x10(3)/mc L [facility] Lymph % 22.7 % [facility] Lymphocytes Abs 1.5 0.9 - 3.2 x10(3)/mc L [facility] Monocyte % 10.3 % [facility] Monocyte Abs 0.7 0.3 - 0.9 x10(3)/mc L [facility] Eos % 7.8 % [facility] Eosinophils Abs 0.5(H) 0.0 - 0.4 x10(3)/mc L [facility] Basophil % 0.6 % [facility] Baso Absolute 0.0 0.0 - 0.1 x10(3)/mc L [facility] Immature Gran % 0.30 % [facility] Comment: Immature granulocytes(IG's)percentage and absolute count will include metamyelocytes, myelocytes, and promyelocytes. Blood smears from CBCs yielding IG's will be scanned manually for concordance. If this scan disagrees with the automated IG or if promyelocytes are noted, a manual differential will be performed. Immature Gran Absolute 0.02 0.00 - 0.04 x10(3)/ L [facility] Blood specimen (specimen) 08/29/2019 3:10 PM EDT 08/29/2019 3:50 PM EDT Narrative Resulting Agency Comment Spec In Lab Abeba SANDRA HEMATOLOGY ORDERABLE S [facility] [place] [address] * (ABNORMAL) Hemogram (08/29/2019 3:10 PM EDT) White Blood Cell 6.5 4.0 - 9.5 x10(3)/[facility] Red Blood Cell 4.69 4.00 - 5.21 x10(6)/[facility] Hemoglobin 14.1 11.7 - 15.5 gm/dL [facility] Hematocrit 43.8 35.7 - 45.8 % [facility] Mean Cell Volume 93.4 82.6 - 94.4 [facility] Mean Cell Hemoglobin 30.1 27.1 - 32.0 pg [facility] Mean Cell Hemoglobin Concentration 32.2 31.7 - 35.0 gm/dL [facility] Platelet 235 145 - 357 x10(3)/[facility] RDW Standard Deviation 47.2(H) 37.0 - 46.0 [facility] RDW coefficient of variation 13.7 11.5 - 14.1 % [facility] Mean Platelet Volume 11.5 7.6 - 12.9 [facility] NRBC% auto 0.0 % [facility] NRBC Absolute 0.000 0.000 - 0.000 x10(3)/ L [facility] Blood specimen (specimen) 08/29/2019 3:10 PM EDT 08/29/2019 3:50 PM EDT Narrative Resulting Agency Comment Spec In Lab Abeba SANDRA HEMATOLOGY ORDERABLE S Performing Organization Address [facility] Co de Phone Number [facility] [place] [address] * Hepatic Function Panel (08/29/2019 3:10 PM EDT) Protein, Total 7.1 6.1 - 8.0 gm/dL [facility] Albumin 4.0 3.2 - 5.2 gm/dL [facility] Aspartate Aminotransferase 25 0 - 30 unit/L [facility] Alanine Aminotransferase 19 0 - 30 unit/L [facility] Alkaline Phosphatase 49 35 - 105 unit/L [facility] Bilirubin, Total 0.7 0.2 - 1.3 mg/dL [facility] Bilirubin, Direct 0.1 0.0 - 0.3 mg/dL [facility] Blood specimen (specimen) 08/29/2019 3:10 PM EDT 08/29/2019 3:52 PM EDT Narrative Resulting Agency Comment Spec In Lab Manish Benitez MD CHEMISTRY ORDERABL ES Performing Organization Address [facility] de Phone Number [facility] [place] [address] * TSH (08/29/2019 3:10 PM EDT) Thyroid Stimulating Hormone 1.87 0.27 - 4.20 mcIU/mL [facility] Blood specimen (specimen) 08/29/2019 3:10 PM EDT 08/29/2019 3:52 PM EDT Narrative Resulting Agency Comment Spec In Lab Manish Benitez MD CHEMISTRY ORDERABL ES Performing Organization Address [facility] Co de Phone Number [facility] [place] [address] * (ABNORMAL) pro-Brain Natriuretic Peptide (08/29/2019 3:10 PM EDT) Pathologist [facility] NT-proBNP 1,242(H) <=125 pg/mL [facility] Blood specimen (specimen) 08/29/2019 3:10 PM EDT 08/29/2019 3:52 PM EDT Narrative Resulting Agency Comment Spec In Lab Manish Benitez MD CHEMISTRY ORDERABL ES Performing Organization Address [facility] de Phone Number [facility] [place] [address] * CK (08/29/2019 3:10 PM EDT) [facility] Creatine Kinase 96 0 - 160 unit/L [facility] Blood specimen (specimen) 08/29/2019 3:10 PM EDT 08/29/2019 3:52 PM EDT Narrative Resulting Agency Comment Spec In Lab Manish Benitez MD CHEMISTRY ORDERABL ES Performing Organization Address [facility] de Phone Number [facility] [place] [address] * Troponin (08/29/2019 3:10 PM EDT) [facility] Troponin-T <0.01 0.00 - 0.00 ng/mL [facility] Comment: The 99th percentile for Troponin T is less than 0.01 ng/mL, any detectable cTnT concentration using this assay should be considered elevated. According to the third universal definition of myocardial infarction the following criteria with a clinical presentation consistent with acute myocardial ischemia meets the diagnosis for a myocardial infarction (AR). Detection of a rise and/or fall of cTnT, with at least one value greater than the 99th percentile (> or = 0.01) and with at least one of the following ?? Symptoms of ischemia ?? New or presumed new significant EZ-njgewsl-P wave (ST-T) changes or new left bundle [...] additional sample may be indicated. Reference: Third Kingsley Definition of Myocardial Infarction. Journal of the [place] College [employer]iology 2012;60:1581-98 Blood specimen (specimen) 08/29/2019 3:10 PM EDT 08/29/2019 3:52 PM EDT Narrative Resulting Agency Comment Spec In Lab Manish Benitez MD CHEMISTRY ORDERABL ES Performing Organization Address [facility] de Phone Number [facility] [place] [address] * (ABNORMAL) APTT (08/29/2019 3:10 PM EDT) Partial Thromboplastin Time 132(Criti edy) 25 - 37 sec [facility] Comment: Critical [...] MD HEMATOLOGY ORDERAB LES Performing Organization Address [facility] de Phone Number [facility] [place] [address] * (ABNORMAL) Prothrombin Time (08/29/2019 3:10 PM EDT) Prothrombin Time 13.3(H) 9.4 - 12.5 sec [facility] International Normalization Ratio 1.2 [facility] Comment: An [...] Lab Manish Benitez MD HEMATOLOGY ORDERAB LES [facility] [place] [address] * (ABNORMAL) Basic Metabolic Panel (non-fasting) (08/29/2019 3:10 PM EDT) Glucose 83 65 - 199 mg/dL [facility] Comment:Diabetes: >=200 mg/d L plus symptoms Blood Urea Nitrogen 15 8 - 18 mg/dL [facility] Creatinine 0.84 0.70 - 1.20 mg/dL [facility] 107 mmol/L [facility] Carbon Dioxide 19(L) 22 - 31 mmol/L [facility] Anion Gap 14 5 - 15 mmol/L [facility] Calcium 9.2 8.5 - 10.5 mg/dL [facility] Est Glomerular Filtration Rate 81 >=60 mL/min/1. 73 m?? [facility] Comment: The eGFR was calculated using the CKD-EPI equation. As with all creatinine based estimates of kidney function, eGFR values calculated with the CKD-EPI equation are not accurate in patients with acute kidney failure, extremes of body mass or the acutely ill. http://Ad[employer]/[facility]ALOnkf eGFR 94 >=60 mL/min/1. 73 m?? [facility] Comment: The eGFR was calculated using the CKD-EPI equation. As with all creatinine based estimates of kidney function, eGFR values calculated with the CKD-EPI equation are not accurate in patients with acute kidney failure, extremes of body mass or the acutely ill. [email or web address]/[facility]ALOnkf Blood specimen (specimen) 08/29/2019 3:10 PM EDT 08/29/2019 3:52 PM EDT Narrative Resulting Agency Comment Spec In Lab Manish Benitez MD CHEMISTRY ORDERABL ES [facility] [place] [address] documented in this encounter Visit Diagnoses Not [...] on Wed08/29/19 at 1715, Until Discontinued, Routine 170 (Given - Provider: Mark Nick RN) 1357 ([facility] Hold - Provider: Admin Adt - Reason: Transfer to a Procedural area)1530 ([facility] Unhold - Provider: Admin Adt) clopidogreL (Plavix) tablet 75 mg (CANCELED) 75 mg, Oral, DAILY, First dose on Wed08/30/19 at 0900, Until Discontinued, Routine 0842 (Given - Provider: Mark Nick RN)1357 ([facility] Hold - Provider: Admin Adt - Reason: Transfer to a Procedural area)1530 ([facility] Unhold - Provider: Admin Adt) DULoxetine DR (Cymbalta) capsule 60 mg 60 mg, Oral, NIGHTLY, First dose on Wed08/29/19 at 2100, Until Discontinued, Routine 2047 (Given - Provider: Efrain Verma RN) 1357 ([facility] Hold - Provider: Admin Adt - Reason: Transfer to a Procedural area)153 ([facility] Unhold - Provider: Admin Adt)2029 (Given - Provider: Gauri Arroyo RN) furosemide (LASIX) injection 40 mg (COMPLETED) 40 mg, Intravenous, ONCE, 1 dose, On Wed08/29/19 at 1800, Routine 172 (Given - Provider: Mark Nick RN) gabapentin (Neurontin) capsule 300 mg 300 mg, Oral, 2 TIMES DAILY, First dose on Wed08/29/19 at 2100, Until Discontinued, Routine 2047 (Given - Provider: Efrain Verma, ERWIN) 0842 (Given - Provider: Mark Nick RN)1357 ([facility] Hold - Provider: Admin Adt - Reason: Transfer to a Procedural area)1530 ([facility] Unhold - Provider: Admin Adt)2029 (Given [...] DO NOT SPLIT, CRUSH OR OPEN, Routine 204 (Given - Provider: Efrain Verma, [...] Oral, EVERY 4 HOURS PRN, Starting on Tu08/29/19 at 1632, Until Aura 08/31/19 at 2025, [...] Intravenous, BOLUS PER HEPARIN PROTOCOL, Starting on Tu08/29/19 at 1616, Until Wed08/30/19 at 1555, Per Protocol, START ADJUSTMENT SCHEDULE 6 HOURS AFTER STARTING INFUSION Heparin UFH Level between 0.1 - 0.29 IU/mL: Bolus 2,000 units Heparin UFH Level less than 0.1 IU/mL: Bolus 4,000 units, Routine And heparin 25,000 units in sodium chloride 0.45% 500 mL infusion (CANCELED)Jump to med 0-5,000 Units/hr (0-100 mL/hr), Intravenous, CONTINUOUS, Starting on 08/29/19 at 1715, Until Wed08/30/19 at 1555, BEGIN [...] UA) documented in this encounter Care Teams Busgirl Relationship Specialty Start Date End Date Tim Rogers DNP PCP - General Family Medicine 08/28/19 06/08/21 documented as of this encounter
--- OUTSIDE RECORDS SUMMARY | 2023-10-22 00:46 | XMS_ITS | Encounter Summary ---
Author Organization Formerly [facility] [place] [address] Care Team Providers Care It Infrastructure Architect Name Role Phone Tim Rogers DNP Primary Care Provider [phone] Reason for Visit * Auth/Cert Specialty Diagnoses / Procedures Referred By Jayant harris Referred To Contact Diagnoses NSTEMI (non-ST elevated myocardial infarction) NSTEMI Procedures EMERGNECY IPI Referral ID Status Reason Start Date Expiration Date Visits Re quested Visits Authorized [id number] 1 1 Encounter Details Date Type Department Care Team (Latest Contact Info) Description 08/29/2019 2:38 PM EDT - 08/31/2019 6:24 PM EDT Hospital Encounter Intermediate [place] [id number] Manish Benitez MD [facility] [place] [address] Non-ST elevation myocardial infarction (NSTEMI); SOB (shortness [...] this encounter Discharge Summaries * Natalia Urbina, FRUIT HARVEST WORKER - 08/30/2019 5:18 PM EDT Images from the original note were not included. Discharge Summary Patient Name: Loida Roque Patient Age: 49 y.o. Language: Scottish Race: White Ethnicity: Not [...] pain overnight ~3 weeksago concerning for missed NM. ??In the ED, her EKG was abnormal [...] follow-up visit please call one of the rac specialist on Wednesday-Wednesday between the hours of 8A- 5PM. Cardiology Clinic number @ [phone] If off hours contact the cardiac fellow on- call. Hospital Mash Processing Operator can help you. Hospital phone number [phone] Return to work: In 1 week Drivin hours post catheterization Follow up Appointments: Doctor Where Phone # Date Time Bouchra Frias APRN [address] / [facility] [address] 09/13/19 8:30 Discharge References/Attachments None Discussed with MD Natalia Lira APRN Pager [phone] 08/31/2019 documented in this encounter Discharge Instructions * Discharge Instructions* Natalia Urbina APRN - 08/31/2019 3:54 PM EDT Call your doctor if: Chest pain, dyspnea, pain or swelling in legs occurs. If you have non-emergent questions, prior to your follow-up visit please call one of the rac specialist on Wednesday-Wednesday between the hours of 8A- 5PM. Cardiology Clinic number @ [phone] If off hours contact the cardiac fellow on- call. Hospital Mash Processing Operator can help you. Hospital phone number [phone] Return to work: In 1 week Drivin hours post catheterization Follow up Appointments: Doctor Where Phone # Date Time Bouchra Frias APRN [address] / [facility] [address] 09/13/19 8:30 * Attachments The following attachments cannot be sent through Care Everywhere. * Cardiac Catheterization: Left (Scottish) documented in this encounter Medications at Time of Discharge Medication Sig Dispensed Refills Start Date End Date fluticasone propionate (FLONASE) 50 mcg/actuation Aragon, Suspension 1 spray by Each Nare route [...] Spirometry Patient Loida Roque 49 y.o. 1970 [id number] Spirometry Spirometry performed successfully. Waiting for read [...] Pt wheeled out of the unit with [employer]. * Leonardo Jolly - 08/31/2019 12:25 PM EDT Nutrition Services Note - Low Nutrition Acuity Loida Roque is a 49 y.o. female Reason for intervention: education [facility] + NA Nutrition Plan: Patient states that she follows a low sodium restriction a home. Educational Material Guidelines for a Heart Healthy Lifestyle provided. Continue current diet. Educational Material provided. Monitor weight. Encourage good oral intake. Support and encouragement provided. Nutrition will continue to monitor and follow up with patient as needed. Active Orders Diet Daily Healthy Menu Choices/Cardiac diet ([facility]-Diet) Frequency: Effective Now Number of [...] in the interim. Leonardo Marina Jolly Pager: [phone] * Manish Benitez MD - 08/31/2019 9:33 AM EDT Images from the original note were not included. 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 [facility] 08/29 Preliminary findings: Right dominant Normal [...] overnight ~3 weeks ago concerning for missed NM. ??In the ED, her EKG was abnormal with diffuse STTW abnormalities but unchanged from prior EKG in 200 7.?Troponin??I??positive at 0.25 (ULN 0.06). ??Vitals stable and patient asymptomatic at rest. ??DDimer positive at 1037 thus??CT-PE protocol??completed. ??No PE or acute aortic pathology. ??She is transferred for further work up of NSTEMI. ??EF 62% and no wall motions seen on echo. [facility] with normal cors and LVEDP 15. [...] Echo with EF 62% and no WMA [facility] with normal cors A1C 5.4% Bedside PFTs today ?? FULL CODE Discussed with Manish Benitez MD Natalia Urbina, ROM Pager [phone] 08/31/2019 Cardiology Attending Note I interviewed and examined the patient during comprehensive bedside rounds. I concur with the summary of interval events, active hospital-focused problem list and plan of care as described in the note below. I personally reviewed the medications, laboratory results, treatment decisions and updated the patient. 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 REVIEW OF SYSTEMS: Review of [...] Dose ??? fluticasone propionate (FLONASE) 50 mcg/actuation [place]agon, Suspension 1 spray by Each Nare route [...] overnight ~3 weeks ago concerning for missed NM. In the ED, her EKG was abnormal with diffuse STTW abnormalities but unchanged from prior EKG in 2006. Troponin I positive at 0.25 (ULN 0.06). Vitals stable and patient asymptomatic at rest. DDimer positive [id number] thus CT-PE protocol completed. No PE or acute aortic pathology. She is transferred for furtherwork up of NSTEMI. Plan Echo and coronary angiography. TREATMENT PLAN: #NSTEMI Admit to cardiology Trend troponin - 1st negative at [facility] ProBNP 1242; Admit weight 207 [...] MD, FACP, FACC Section of Cardiovascular Medicine [facility] Patient Scheduling Managercustomer assistant [facility] This patient meets or has met medical [...] Primary care provider on file: Tim Rogers, FRUIT HARVEST WORKER [phone] Advance Directive on file and Code Status: Full Code Patient???s Functional Status: Independent w/o device Living Situation: lives with Boby Roque (Spouse) [phone] (M) at [address] [place] [address] Supports: Boby, Mother son and daughter Assessment: Patient with no apparent RNCM/SW needs at this time. No housing, transportation, insurance, resources concerns identified at this time. Supports in place to achieve a safe post-hospital transition. No identified barriers to accessing necessary care and/or follow-up after discharge. Plan: Patient to d/c to home when medically ready. wound care coordinator/Mold Design Engineer will continue to follow patient???s progress and remain available if situation changes for coordination of care, psychosocial support and/or discharge planning. Angela Loving RN * Brief Op Note - Jessee Malone MD - 08/30/2019 2:31 PM EDT Preliminary Cardiac Catheterization Procedure Note: Patient Name: Loida Roque : [id number] MR#: [id number] Case Date: 08/30/2019 Mash Processing Operator: Surgeon(s) and Role: * Jessee Malone MD - Primary * Luis Tatum PA - Fellow Preoperative diagnosis: ?CAD Postoperative diagnosis: * CAD * Procedure(s) performed: [facility] Coronary angio Access: Right radial A [...] for further details. JOCY Montaño 08/30/2019 Pager [phone] * Plan of Care - Efrain Verma [...] PM EDT Office Visit Cardiology at [address] [place] [address] Jaspreet Kinsey MD [facility] [place] [address] 10/28/2023 9:00 AM EDT Office Visit [place] [address] 10/29/2023 10:00 AM EDT Clinical Support [place] [address] 10/29/2023 10:15 AM EDT Procedure visit [place] [address] 11/01/2023 5:00 PM EDT Office [place] [address] Selene Browning, PhD [facility] [place] [address] 11/22/2023 4:40 PM EDT Office Visit Cardiology at [address] [phone] Porsha Mcdaniels MD [facility] [place] [address] 12/13/2023 10:00 AM EDT Clinical [place] [address] Lucero Romero, ALVA [facility] [place] [address] documented as of this encounter Procedures Procedure [...] (Bezet) 503 ms MUSE SYSTEM Calculated P Derwood 18 degrees MUSE SYSTEM Calculated R Derwood 52 degrees MUSE SYSTEM Calculated T Derwood 13 degrees MUSE SYSTEM INTERPRETATION Sinus bradycardia [...] Absolute 2.73 1.70 - 6.10 x10(3)/mc L [facility] Lymph % 34.8 % [facility] Lymphocytes Abs 2.1 0.9 - 3.2 x10(3)/mc L [facility] Monocyte % 10.1 % [facility] Monocyte Abs 0.6 0.3 - 0.9 x10(3)/mc L [facility] Eos % 8.9 % [facility] Eosinophils Abs 0.5(H) 0.0 - 0.4 x10(3)/ L [facility] Basophil % 0.8 % [facility] Baso Absolute 0.0 0.0 - 0.1 x10(3)/[facility] [place] LABOR[facility] Immature Gran % 0.20 % [facility] Comment: Immature granulocytes(IG's)percentage and absolute count will include metamyelocytes, myelocytes, and promyelocytes. Blood smears from CBCs yielding IG's will be scanned manually for concordance. If this scan disagrees with the automated IG or if promyelocytes are noted, a manual differential will be performed. Immature Gran Absolute 0.01 0.00 - 0.04 x10(3)/[facility] Blood specimen (specimen) 08/31/2019 4:12 AM EDT 08/31/2019 4:29 AM EDT Narrative Resulting Agency Comment Spec In Lab Abe[facility] HEMATOLOGY ORDERABLE S [facility] [place] [address] * (ABNORMAL) Hemogram (08/31/2019 4:12 AM EDT) White Blood Cell 6.0 4.0 - 9.5 x10(3)/[facility] Red Blood Cell 5.08 4.00 - 5.21 x10(6)/ L [facility] Hemoglobin 15.7(H) 11.7 - 15.5 gm/dL [facility] Hematocrit 47.0(H) 35.7 - 45.8 % [facility] Mean Cell Volume 92.5 82.6 - 94.4 fL [facility] Mean Cell Hemoglobin 30.9 27.1 - 32.0 pg [facility] Mean Cell Hemoglobin Concentration 33.4 31.7 - 35.0 gm/dL [facility] Platelet 255 145 - 357 x10(3)/ L [facility] RDW Standard Deviation 45.3 37.0 - 46.0 fL [facility] RDW coefficient of variation 13.2 11.5 - 14.1 % [facility] Mean Platelet Volume 11.4 7.6 - 12.9 fL [facility] NRBC% auto 0.0 % [facility] NRBC Absolute 0.000 0.000 - 0.000 x10(3)/mc L [facility] Blood specimen (specimen) 08/31/2019 4:12 AM EDT 08/31/2019 4:29 AM EDT Narrative Resulting Agency Comment Spec In Lab [facility]AT[facility] ORDERABLE S Performing Organization Address City/[facility]/ZIP Co de Phone Number [facility] [place] [address] * Magnesium (08/31/2019 4:12 AM EDT) Magnesium 0.92 0.69 - 1.07 mmol/L [facility] Blood specimen (specimen) 08/31/2019 4:12 AM EDT 08/31/2019 4:29 AM EDT Narrative Resulting Agency Comment Spec In Lab Manish Benitez MD CHEMISTRY ORDERABL ES Performing Organization Address [facility] Co de Phone Number [facility] [place] [address] * (ABNORMAL) BMP w/fasting Glucose (08/31/2019 4:12 AM EDT) Glucose Fasting 91 65 - 99 mg/dL [facility] [...] of Diabetes Mellitus, Position Statement from the [place] [employer]. ??Diabetes Care, Volume 33, Supplement 1, Mar 2009 Blood Urea Nitrogen 21(H) 8 - 18 mg/dL [facility] Creatinine 0.91 0.70 - 1.20 mg/dL [facility] [...] [facility] Carbon Dioxide 18(L) 22 - 31 mmol/L [facility] Anion Gap 13 5 - 15 mmol/L [facility] Calcium 9.4 8.5 - 10.5 mg/dL [facility] Est Glomerular Filtration Rate 74 >=60 mL/min/1. 73 m?? [facility] Comment: The eGFR was calculated using the CKD-EPI equation. As with all creatinine based estimates of kidney function, eGFR values calculated with the CKD-EPI equation are not accurate in patients with acute kidney failure, extremes of body mass or the acutely ill. http://Fundation/[facility]ONnkf eGFR 85 >=60 mL/min/1. 73 m?? [facility] Comment: The eGFR was calculated using the CKD-EPI equation. As with all creatinine based estimates of kidney function, eGFR values calculated with the CKD-EPI equation are not accurate in patients with acute kidney failure, extremes of body mass or the acutely ill. http://Fundation/[facility]ONnkf Blood specimen (specimen) 08/31/2019 4:12 AM EDT 08/31/2019 4:29 AM EDT Narrative Resulting Agency Comment Spec In Lab Manish Benitez MD CHEMISTRY ORDERABL ES [facility] [place] [address] * CARDIAC CATHETERIZATION (08/30/2019 2:40 PM EDT) Anatomical Region Laterality Modality Other Narrative 08/30/2019 2:59 PM EDT ?[facility] ? Cardiac Catheterization/Intervention Report ? Patient Name: Neisha, Loida ? Procedure Date: 08/30/2019 ? A #: [id number] ? Primary Physician: Jessee Malone ? Case #: [id number] ? File Name: [id number] ? Catheterization Order Number: [id number] ? [facility] ? Final Report [place], [place] ? Patient Name: ? Loida Neisha ? ID#: ?[id number] ? : ?1970 ? Procedure Date: ? [...] procedure was Urgent. The indication for ?the lab technologist visit is ACS less than or equal [...] Malone, M.D. ? Electronically Signed by: Jessee Malone M.D. ? Report Finalized: 08/30/2019 ??14:56 ? Procedure Note Jessee Malone MD - 08/30/2019 [facility] Cardiac Catheterization/Intervention Report Patient Name: Loida Roque Procedure Date: 08/30/2019 A #: [id number] Primary Physician: Jessee Malone Case #: [id number] File Name: [id number] Catheterization Order Number: [id number] [facility] FinalReport [place], [place] Patient Name: Loida Roque ID#:[id number] :1970 Procedure Date: August 30, 2019 Case [...] was designated as ASA Class III. The [place] clinical frailtyscale is 2: Well. Diagnostic Tests: Prior Coronary Angiography: LV ejection fraction within 6 months is 65%. Medications Prior to Procedure: Aspirin. Indications for Diagnostic Cath: The priority of the diagnostic procedure was Urgent. The indicationfor the lab technologist visit is ACS less than or equal [...] CONTRAST (08/30/2019 12:23 PM EDT) EF 62 [employer] Anatomical Region Laterality Modality Other 08/30/2019 Narrative 08/30/2019 2:22 PM EDT Procedure: ?Transthoracic Echocardiogram Patient: ?NEISHA LOIDA ?(Age): 1970(49y) Med Rec#: ? [id number] ?Sex: ?F ? Site Loc: ? [facility] ?Ht / Wt: ??163(cm)/94(kg) Pt. Loc: ?Adult Floor ? BSA: ?1.99 Study Date: ?? 08/30/2019 ?Pt. Type: Inpatient Tape: ? Referring: POOJA IYER J Reading: Jose Chambers ([id number]) Electric Repair Supervisor: Jaspreet Oneil [facility] Interpreting Fellow: Poncho Yates ([id number]) Diagnosis: *Non-ST elevation (NSTEMI) myocardial infarction (I21.4) [...] Vmax ?0.35 ? m/sec ? MV deceleration [id number] ?msec ? MV A-wave Vmax ?0.25 ? [...] ? Mid-Inferior ?Normal ? Mid-Inferoseptal ?Normal ? Gonzales-Septal ? Normal ? Gonzales-Anterior ? Normal ? Gonzales-Lateral ?Normal ? Gonzales-Inferior ? Normal ? Gonzales-Tip ?Normal ? This report has been electronically signed by: Jose Chambers MD ? 08/30/2019 14:21:57 Images reviewed and interpretation verified [facility] Cardiac Ultrasound Laboratory Procedure Note Jose Chambers MD - 08/30/2019 Procedure: Transthoracic Echocardiogram Patient: NEISHA VÁSQUEZ(Age): 1970(49y) Med Rec#: [id number] Sex: F Site Loc: [facility] Ht / Wt: 163(cm)/94(kg) Pt. Loc: Adult Floor BSA: 1.99 Study Date: 08/30/2019 Pt. Type: Inpatient Tape: Referring: POOJA IYER J Reading: Jose Chambers ([id number]) Electric Repair Supervisor: Jaspreet Oneil [facility] Interpreting Fellow: Poncho Yates ([id number]) Diagnosis: *Non-ST elevation (NSTEMI) myocardial infarction (I21.4) [...] MV E-wave Vmax 0.35 m/sec MV deceleration [id number] msec MV A-wave Vmax 0.25 m/sec MV [...] Normal Mid-Posterolateral Normal Mid-Inferior Normal Mid-Inferoseptal Normal Gonzales-Septal Normal Gonzales-Anterior Normal Gonzales-Lateral Normal Gonzales-Inferior Normal Gonzales-Tip Normal This report has been electronically signed by: Jose Chambers MD 08/30/2019 14:21:57 Images reviewed and interpretation verified [facility] Cardiac Ultrasound Laboratory Manish Benitez MD ECHO ORDERABLES * EKG 12 Lead (08/30/2019 10:28 AM EDT) Ventricular rate 52 BPM MUSE SYSTEM Atrial Rate 52 BPM MUSE SYSTEM P-R Interval 162 ms MUSE SYSTEM QRS Duration 84 ms MUSE SYSTEM Q-T Interval 536 ms MUSE SYSTEM QTC Calculated (Bezet) 498 ms MUSE SYSTEM Calculated P Derwood -9 degrees MUSE SYSTEM Calculated R Derwood 43 degrees MUSE SYSTEM Calculated T Derwood -27 degrees MUSE SYSTEM INTERPRETATION Sinus bradycardia [...] MD HEMATOLOGY ORDERAB LES Performing Organization Address City/[facility]/[place] [address] * (ABNORMAL) Differential, Automated (08/30/2019 2:53 AM EDT) Neutrophil % 52.4 % [facility] Neutrophil Absolute 3.85 1.70 - 6.10 x10(3)/mc L [facility] Lymph % 29.3 % [facility] Lymphocytes Abs 2.2 0.9 - 3.2 x10(3)/ L [facility] Monocyte % 9.1 % [facility] Monocyte Abs 0.7 0.3 - 0.9 x10(3)/mc L [facility] Eos % 8.6 % [facility] Eosinophils Abs 0.6(H) 0.0 - 0.4 x10(3)/mc L [facility] Basophil % 0.5 % [facility] Baso Absolute 0.0 0.0 - 0.1 x10(3)/ L [facility] Immature Gran % 0.10 % [facility] Comment: Immature granulocytes(IG's)percentage and absolute count will include metamyelocytes, myelocytes, and promyelocytes. Blood smears from CBCs yielding IG's will be scanned manually for concordance. If this scan disagrees with the automated IG or if promyelocytes are noted, a manual differential will be performed. Immature Gran Absolute 0.01 0.00 - 0.04 x10(3)/mc L [facility] Blood specimen (specimen) 08/30/2019 2:53 AM EDT 08/30/2019 3:01 AM EDT Narrative Resulting Agency Comment Spec In Lab [facility]AT[facility] ORDERABLE [place] [address] * (ABNORMAL) Hemogram (08/30/2019 2:53 AM EDT) White Blood Cell 7.4 4.0 - 9.5 x10(3)/mc L [facility] Red Blood Cell 4.84 4.00 - 5.21 x10(6)/ L [facility] Hemoglobin 14.8 11.7 - 15.5 gm/dL [facility] Hematocrit 44.8 35.7 - 45.8 % [facility] Mean Cell Volume 92.6 82.6 - 94.4 fL [facility] Mean Cell Hemoglobin 30.6 27.1 - 32.0 pg [facility] Mean Cell Hemoglobin Concentration 33.0 31.7 - 35.0 gm/dL [facility] Platelet 272 145 - 357 x10(3)/[facility] RDW Standard Deviation 46.2(H) 37.0 - 46.0 fL [facility] RDW coefficient of variation 13.5 11.5 - 14.1 % [facility] Mean Platelet Volume 10.9 7.6 - 12.9 fL [facility] NRBC% auto 0.0 % [facility] NRBC Absolute 0.000 0.000 - 0.000 x10(3)/ L [facility] Blood specimen (specimen) 08/30/2019 2:53 AM EDT 08/30/2019 3:01 AM EDT Narrative Resulting Agency Comment Spec In Lab [facility] HEMATOLOG[facility] ORDERABLE S [facility] [place] [address] * Magnesium (08/30/2019 2:53 AM EDT) Magnesium 0.90 0.69 - 1.07 mmol/L [facility] Blood specimen (specimen) 08/30/2019 2:53 AM EDT 08/30/2019 3:01 AM EDT Narrative Resulting Agency Comment Spec In Lab Manish Benitez MD CHEMISTRY ORDERABL ES [facility] [place] [address] * (ABNORMAL) BMP w/fasting Glucose (08/30/2019 2:53 AM EDT) Glucose Fasting 102(H) 65 - 99 mg/dL [facility] [...] of Diabetes Mellitus, Position Statement from the [place] [employer]. ??Diabetes Care, Volume 33, Supplement 1, Mar 2009 Blood Urea Nitrogen 18 8 - 18 mg/dL [facility] Creatinine 1.09 0.70 - 1.20 mg/dL [facility] [...] [facility] Carbon Dioxide 19(L) 22 - 31 mmol/L [facility] Anion Gap 17(H) 5 - 15 mmol/L [facility] Calcium 9.0 8.5 - 10.5 mg/dL [facility] Est Glomerular Filtration Rate 59(L) >=60 mL/min/1. 73 m?? [facility] Comment: The eGFR was calculated using the CKD-EPI equation. As with all creatinine based estimates of kidney function, eGFR values calculated with the CKD-EPI equation are not accurate in patients with acute kidney failure, extremes of body mass or the acutely ill. http://Fundation/[facility]ONnkf eGFR 69 >=60 mL/min/1. 73 m?? [facility] Comment: The eGFR was calculated using the CKD-EPI equation. As with all creatinine based estimates of kidney function, eGFR values calculated with the CKD-EPI equation are not accurate in patients with acute kidney failure, extremes of body mass or the acutely ill. http://Fundation/[facility]ONnkf Blood specimen (specimen) 08/30/2019 2:53 AM EDT 08/30/2019 3:01 AM EDT Narrative Resulting Agency Comment Spec In Lab Manish Benitez MD CHEMISTRY ORDERABL ES Performing Organization Address [facility] Co de Phone Number [facility] [place] [address] * Triglyceride (08/30/2019 2:53 AM EDT) Triglyceride 203 mg/dL [facility] Comment: Average Risk/Lower Risk: <150 mg/dL Borderline High Risk: 150-199 mg/dL High Risk: 200-499 mg/dL Very High Risk: >oe=788 mg/dL Blood specimen (specimen) 08/30/2019 2:53 AM EDT 08/30/2019 3:01 AM EDT Narrative Resulting Agency Comment Spec In Lab Manish Benitez MD CHEMISTRY ORDERABL ES Performing Organization Address City/[facility]/ZIP Co de Phone Number [facility] [place] [address] * HDL/Cholesterol Profile (08/30/2019 2:53 AM EDT) Cholesterol, Total 220 mg/dL M MARC [facility] Comment: Lower Risk: <200 mg/dL Average Risk: 200-239 mg/dL Higher Risk: >uw=437 mg/dL HDL Cholesterol 34 mg/dL [facility] Comment: Males: ?? Higher Risk: <40 mg/dL Females: ?? HIgher Risk: <50 mg/dL Cholesterol/HDL Ratio 6.5 ratio [facility] Chol/HDL Interpretation See Note [facility] Comment: Lipid management should be guided by a patient? s ASCVD risk, goals and preferences. ACC/AHA Guidelines recommend high intensity statin if clinical ASCVD or LDL greater than or equal to 190 mg/dL. http://Attunity.com/XFB-UYP-Rduvgqrgk Measure LDL if Total Cholesterol minus HDL Cholesterol is greater than 220 mg/dL. Adults aged 40-75 with LDL 70-189 mg/dL should have their 10 year ASCVD risk estimated with the ACC/AHA ASCVD risk excel expert http://tools.acc.org/CRIFY-Pdqw-Dgipgwpjc/ Statin should be discussed if risk greater [...] Lab Manish Benitez MD CHEMISTRY ORDERABL ES [facility] [place] [address] * LDL Cholesterol, Direct (08/30/2019 2:53 AM EDT) LDL Cholesterol, Direct 165 mg/dL [facility] Comment: Lowest Risk: <100 mg/dL Lower Risk: 100-129 mg/dL Borderline High Risk: 130-159 mg/dL High Risk: 160-189 mg/dL Very High Risk: >rf=223 mg/dL Blood specimen (specimen) 08/30/2019 2:53 AM EDT 08/30/2019 3:01 AM EDT Narrative Resulting Agency Comment Spec In Lab Manish Benitez MD CHEMISTRY ORDERABL ES [facility] [place] [address] * Hemoglobin A1c (08/30/2019 2:53 AM EDT) Hemoglobin A1c 5.4 4.3 - 5.6 % [facility] Mellitus, Diabetes Care 2013; 36: Suppl. 1, S67-26 Estimated Average Glucose 108 mg/dL [facility] Comment: eAG equivalents [...] into estimated average glucose values. ??Diabetes Care 2008:31(8):7642-7730. Blood specimen (specimen) 08/30/2019 2:53 AM EDT 08/30/2019 3:01 AM EDT Narrative Resulting Agency Comment Spec In Lab Manish Benitez MD CHEMISTRY ORDERABL ES Performing Organization Address [facility] Co de Phone Number [facility] [place] [address] * CK (08/30/2019 2:53 AM EDT) Creatine Kinase 82 0 - 160 unit/L [facility] Blood specimen (specimen) 08/30/2019 2:53 AM EDT 08/30/2019 3:01 AM EDT Narrative Resulting Agency Comment Spec In Lab Manish Benitez MD CHEMISTRY ORDERABL ES Performing Organization Address [facility] de Phone Number [facility] [place] [address] * Troponin (08/30/2019 2:53 AM EDT) Troponin-T [...] meets the diagnosis for a myocardial infarction (NM). Detection of a rise and/or fall of cTnT, with at least one value greater than the 99th percentile (> or = 0.01) and with at least one of the following ?? Symptoms of ischemia ?? New or presumed new significant IX-tmoasyh-I wave (ST-T) changes or new left bundle [...] additional sample may be indicated. Reference: Third Mamou Definition of Myocardial Infarction. Journal of the [place] [employer] 2012;60:1581-98 Blood specimen (specimen) 08/30/2019 2:53 AM EDT 08/30/2019 3:01 AM EDT Narrative Resulting Agency Comment Spec In Lab Manish Benitez MD CHEMISTRY ORDERABL ES [facility] [place] [address] * (ABNORMAL) Differential, Automated (08/29/2019 8:30 PM EDT) Neutrophil % 56.5 % [facility] Neutrophil Absolute 3.58 1.70 - 6.10 x10(3)/mc L [facility] Lymph % 25.9 % [facility] Lymphocytes Abs 1.6 0.9 - 3.2 x10(3)/mc L [facility] Monocyte % 8.8 % [facility] Monocyte Abs 0.6 0.3 - 0.9 x10(3)/mc L [facility] Eos % 7.7 % [facility] Eosinophils Abs 0.5(H) 0.0 - 0.4 x10(3)/mc L [facility] Basophil % 0.8 % [facility] Baso Absolute 0.0 0.0 - 0.1 x10(3)/mc L [facility] Immature Gran % 0.30 % [facility] Comment: Immature granulocytes(IG's)percentage and absolute count will include metamyelocytes, myelocytes, and promyelocytes. Blood smears from CBCs yielding IG's will be scanned manually for concordance. If this scan disagrees with the automated IG or if promyelocytes are noted, a manual differential will be performed. Immature Gran Absolute 0.02 0.00 - 0.04 x10(3)/mc L [facility] Blood specimen (specimen) 08/29/2019 8:30 PM EDT 08/29/2019 9:11 PM EDT Narrative Resulting Agency Comment Spec In Lab Abeba SANDRA HEMATOLOGY ORDERABLE S [facility] [place] [address] * (ABNORMAL) Hemogram (08/29/2019 8:30 PM EDT) White Blood Cell 6.3 4.0 - 9.5 x10(3)/ L [facility] Red Blood Cell 5.03 4.00 - 5.21 x10(6)/[facility] [place] [facility] Hemoglobin 15.3 11.7 - 15.5 gm/dL [facility] Hematocrit 46.4(H) 35.7 - 45.8 % [facility] Mean Cell Volume 92.2 82.6 - 94.4 fL [facility] Mean Cell Hemoglobin 30.4 27.1 - 32.0 pg [facility] Mean Cell Hemoglobin Concentration 33.0 31.7 - 35.0 gm/dL [facility] Platelet 267 145 - 357 x10(3)/ L [facility] RDW Standard Deviation 46.4(H) 37.0 - 46.0 fL [facility] RDW coefficient of variation 13.6 11.5 - 14.1 % [facility] Mean Platelet Volume 11.3 7.6 - 12.9 fL [facility] NRBC% auto 0.0 % [facility] NRBC Absolute 0.000 0.000 - 0.000 x10(3)/ L [facility] Blood specimen (specimen) 08/29/2019 8:30 PM EDT 08/29/2019 9:11 PM EDT Narrative Resulting Agency Comment Spec In Lab Abeba SANDRA HEMATOLOGY ORDERABLE S Performing Organization Address [facility] de Phone Number [facility] [place] [address] * Heparin (unfractionated) Level (08/29/2019 8:30 PM [...] MD HEMATOLOGY ORDERAB LES Performing Organization Address [facility] Co de Phone Number [facility] [place] [address] * CK (08/29/2019 8:30 PM EDT) Creatine Kinase 94 0 - 160 unit/L [facility] Blood specimen (specimen) 08/29/2019 8:30 PM EDT 08/29/2019 9:11 PM EDT Narrative Resulting Agency Comment Spec In Lab Manish Benitez MD CHEMISTRY ORDERABL ES Performing Organization Address [facility] Co de Phone Number [facility] [place] [address] * Troponin (08/29/2019 8:30 PM EDT) [facility] Troponin-T <0.01 0.00 - 0.00 ng/mL [facility] Comment: The 99th percentile for Troponin T is less than 0.01 ng/mL, any detectable cTnT concentration using this assay should be considered elevated. According to the third universal definition of myocardial infarction the following criteria with a clinical presentation consistent with acute myocardial ischemia meets the diagnosis for a myocardial infarction (NM). Detection of a rise and/or fall of cTnT, with at least one value greater than the 99th percentile (> or = 0.01) and with at least one of the following ?? Symptoms of ischemia ?? New or presumed new significant TT-jlkgcnd-T wave (ST-T) changes or new left bundle [...] additional sample may be indicated. Reference: Third Mamou Definition of Myocardial Infarction. Journal of the [place] [employer]iology 2012;60:1581-98 Blood specimen (specimen) 08/29/2019 8:30 PM EDT 08/29/2019 9:11 PM EDT Narrative Resulting Agency Comment Spec In Lab Manish Benitez MD CHEMISTRY ORDERABL ES Performing Organization Address [facility] Co de Phone Number [facility] [place] [address] * EKG 12 Lead (08/29/2019 4:19 PM EDT) Ventricular rate 67 BPM MUSE SYSTEM Atrial Rate 67 BPM MUSE SYSTEM P-R Interval 164 ms MUSE SYSTEM QRS Duration 80 ms MUSE SYSTEM Q-T Interval 478 ms MUSE SYSTEM QTC Calculated (Bezet) 505 ms MUSE SYSTEM Calculated P Derwood 34 degrees MUSE SYSTEM Calculated R Derwood 30 degrees MUSE SYSTEM Calculated T Derwood -29 degrees MUSE SYSTEM INTERPRETATION Demand pacemaker; [...] Automated (08/29/2019 3:10 PM EDT) Pathologist [facility] Neutrophil % 58.3 % [facility] Neutrophil Absolute 3.79 1.70 - 6.10 x10(3)/mc L [facility] Lymph % 22.7 % [facility] Lymphocytes Abs 1.5 0.9 - 3.2 x10(3)/mc L [facility] Monocyte % 10.3 % [facility] Monocyte Abs 0.7 0.3 - 0.9 x10(3)/mc L [facility] Eos % 7.8 % [facility] Eosinophils Abs 0.5(H) 0.0 - 0.4 x10(3)/mc L [facility] Basophil % 0.6 % [facility] Baso Absolute 0.0 0.0 - 0.1 x10(3)/mc L [facility] Immature Gran % 0.30 % [facility] Comment: Immature granulocytes(IG's)percentage and absolute count will include metamyelocytes, myelocytes, and promyelocytes. Blood smears from CBCs yielding IG's will be scanned manually for concordance. If this scan disagrees with the automated IG or if promyelocytes are noted, a manual differential will be performed. Immature Gran Absolute 0.02 0.00 - 0.04 x10(3)/ L [facility] Blood specimen (specimen) 08/29/2019 3:10 PM EDT 08/29/2019 3:50 PM EDT Narrative Resulting Agency Comment Spec In Lab Abeba SANDRA HEMATOLOGY ORDERABLE S [facility] [place] [address] * (ABNORMAL) Hemogram (08/29/2019 3:10 PM EDT) White Blood Cell 6.5 4.0 - 9.5 x10(3)/[facility] Red Blood Cell 4.69 4.00 - 5.21 x10(6)/[facility] Hemoglobin 14.1 11.7 - 15.5 gm/dL [facility] Hematocrit 43.8 35.7 - 45.8 % [facility] Mean Cell Volume 93.4 82.6 - 94.4 fL [facility] Mean Cell Hemoglobin 30.1 27.1 - 32.0 pg [facility] Mean Cell Hemoglobin Concentration 32.2 31.7 - 35.0 gm/dL [facility] Platelet 235 145 - 357 x10(3)/[facility] RDW Standard Deviation 47.2(H) 37.0 - 46.0 [facility] RDW coefficient of variation 13.7 11.5 - 14.1 % [facility] Mean Platelet Volume 11.5 7.6 - 12.9 fL [facility] NRBC% auto 0.0 % [facility] NRBC Absolute 0.000 0.000 - 0.000 x10(3)/ L [facility] Blood specimen (specimen) 08/29/2019 3:10 PM EDT 08/29/2019 3:50 PM EDT Narrative Resulting Agency Comment Spec In Lab Abeba SANDRA HEMATOLOGY ORDERABLE S Performing Organization Address [facility]/ZIP Co de Phone Number [facility] [place] [address] * Hepatic Function Panel (08/29/2019 3:10 PM EDT) Protein, Total 7.1 6.1 - 8.0 gm/dL [facility] Albumin 4.0 3.2 - 5.2 gm/dL [facility] Aspartate Aminotransferase 25 0 - 30 unit/L [facility] Alanine Aminotransferase 19 0 - 30 unit/L [facility] Alkaline Phosphatase 49 35 - 105 unit/L [facility] Bilirubin, Total 0.7 0.2 - 1.3 mg/dL [facility] Bilirubin, Direct 0.1 0.0 - 0.3 mg/dL [facility] Blood specimen (specimen) 08/29/2019 3:10 PM EDT 08/29/2019 3:52 PM EDT Narrative Resulting Agency Comment Spec In Lab Manish Benitez MD CHEMISTRY ORDERABL ES Performing Organization Address [facility] Co de Phone Number [facility] [place] [address] * TSH (08/29/2019 3:10 PM EDT) Thyroid Stimulating Hormone 1.87 0.27 - 4.20 mcIU/mL [facility] Blood specimen (specimen) 08/29/2019 3:10 PM EDT 08/29/2019 3:52 PM EDT Narrative Resulting Agency Comment Spec In Lab Manish Benitez MD CHEMISTRY ORDERABL ES Performing Organization Address City/[facility]/ZIP Co de Phone Number [facility] [place] [address] * (ABNORMAL) pro-Brain Natriuretic Peptide (08/29/2019 3:10 PM EDT) Pathologist [facility] NT-proBNP 1,242(H) <=125 pg/mL [facility] Blood specimen (specimen) 08/29/2019 3:10 PM EDT 08/29/2019 3:52 PM EDT Narrative Resulting Agency Comment Spec In Lab Manish Benitez MD CHEMISTRY ORDERABL ES Performing Organization Address [facility]/ZIP Co de Phone Number [facility] [place] [address] * CK (08/29/2019 3:10 PM EDT) [facility] Creatine Kinase 96 0 - 160 unit/L [facility] Blood specimen (specimen) 08/29/2019 3:10 PM EDT 08/29/2019 3:52 PM EDT Narrative Resulting Agency Comment Spec In Lab Manish Benitez MD CHEMISTRY ORDERABL ES Performing Organization Address [facility] Co de Phone Number [facility] [place] [address] * Troponin (08/29/2019 3:10 PM EDT) [facility] Troponin-T <0.01 0.00 - 0.00 ng/mL [facility] Comment: The 99th percentile for Troponin T is less than 0.01 ng/mL, any detectable cTnT concentration using this assay should be considered elevated. According to the third universal definition of myocardial infarction the following criteria with a clinical presentation consistent with acute myocardial ischemia meets the diagnosis for a myocardial infarction (NM). Detection of a rise and/or fall of cTnT, with at least one value greater than the 99th percentile (> or = 0.01) and with at least one of the following ?? Symptoms of ischemia ?? New or presumed new significant KM-kfruwgv-C wave (ST-T) changes or new left bundle [...] additional sample may be indicated. Reference: Third Mamou Definition of Myocardial Infarction. Journal of the [place] [employer] 2012;60:1581-98 Blood specimen (specimen) 08/29/2019 3:10 PM EDT 08/29/2019 3:52 PM EDT Narrative Resulting Agency Comment Spec In Lab Manish Benitez MD CHEMISTRY ORDERABL ES Performing Organization Address [facility] Co de Phone Number [facility] [place] [address] * (ABNORMAL) APTT (08/29/2019 3:10 PM EDT) Partial Thromboplastin Time 132(Criti edy) 25 - 37 sec [facility] Comment: Critical [...] MD HEMATOLOGY ORDERAB LES Performing Organization Address [facility]/ZIP Co de Phone Number [facility] [place] [address] * (ABNORMAL) Prothrombin Time (08/29/2019 3:10 PM EDT) Prothrombin Time 13.3(H) 9.4 - 12.5 sec [facility] International Normalization Ratio 1.2 [facility] Comment: [...] Lab Manish Benitez MD HEMATOLOGY ORDERAB LES [facility] [place] [address] * (ABNORMAL) Basic Metabolic Panel (non-fasting) (08/29/2019 3:10 PM EDT) Glucose 83 65 - 199 mg/dL [facility] Comment:Diabetes: >=200 mg/d L plus symptoms Blood Urea Nitrogen 15 8 - 18 mg/dL [facility] Creatinine 0.84 0.70 - 1.20 mg/dL [facility] Carbon Dioxide 19(L) 22 - 31 mmol/L [facility] Anion Gap 14 5 - 15 mmol/L [facility] Calcium 9.2 8.5 - 10.5 mg/dL [facility] Est Glomerular Filtration Rate 81 >=60 mL/min/1. 73 m?? [facility] Comment: The eGFR was calculated using the CKD-EPI equation. As with all creatinine based estimates of kidney function, eGFR values calculated with the CKD-EPI equation are not accurate in patients with acute kidney failure, extremes of body mass or the acutely ill. http://Fundation/[facility]WTONnkf eGFR 94 >=60 mL/min/1. 73 m?? [facility] Comment: The eGFR was calculated using the CKD-EPI equation. As with all creatinine based estimates of kidney function, eGFR values calculated with the CKD-EPI equation are not accurate in patients with acute kidney failure, extremes of body mass or the acutely ill. http://Fundation/[facility]ONnkf Blood specimen (specimen) 08/29/2019 3:10 PM EDT 08/29/2019 3:52 PM EDT Narrative Resulting Agency Comment Spec In Lab Manish Benitez MD CHEMISTRY ORDERABL ES [facility] [place] [address] documented in this encounter Visit Diagnoses Diagnosis [...] 1439, Until Wed08/29/19 at 1445, Mark Nick: cabinet override heparin (Porcine) subcutaneous injection 5,000 Units [...] (Given - Provider: Mark Nick RN)1357 ([facility] Hold - Provider: Admin Adt - Reason: Transfer to a Procedural area)1530 ([facility] Unhold - Provider: Admin Adt) atorvastatin (Lipitor) tablet 80 mg (CANCELED) 80 mg, Oral, EVERY EVENING, First dose on Wed08/29/19 at 1715, Until Discontinued, Routine 1701 (Given - Provider: Mark Nick RN) 1357 ([facility] Hold - Provider: Admin Adt - Reason: Transfer to a Procedural area)1530 ([facility] Unhold - Provider: Admin Adt) clopidogreL (Plavix) tablet 75 mg (CANCELED) 75 mg, Oral, DAILY, First dose on Wed08/30/19 at 0900, Until Discontinued, Routine 0842 (Given - Provider: Mark Nick RN)1357 ([facility] Hold - Provider: Admin Adt - Reason: Transfer to a Procedural area)1530 ([facility] Unhold - Provider: Admin Adt) DULoxetine DR (Cymbalta) capsule 60 mg 60 mg, Oral, NIGHTLY, First dose on Wed08/29/19 at 2100, Until Discontinued, Routine 2048 (Given - Provider: Efrain Verma RN) 1357 ([facility] Hold - Provider: Admin Adt - Reason: Transfer to a Procedural area)1530 ([facility] Unhold - Provider: Admin Adt)2030 [...] Unit) 1515 (New Bag - Provider: Mark E Sandoval, RN)1715 (Stopped - Provider: Mark Nick RN) [...] at 1632, Until Aura 08/31/19 at 2025, Chest pain, May repeat every 5 minutes [...] UA) documented in this encounter Care Teams It Infrastructure Architect Relationship Specialty Start Date End Date Tim Rogers DNP PCP - General Family Medicine 08/28/19 06/08/21 documented as of this encounter
--- OUTSIDE RECORDS SUMMARY | 2023-10-22 00:46 | XMS_ITS | Encounter Summary ---
Author Organization [facility] Address [facility] [place] [address] Care Team Providers Care Ediphone Operator Name Role Phone Tim Rogers DNP Primary Care Provider [phone] Encounter Details Date Type Department Care Team (Late st Contact Info) Description 05/06/2020 Telephone [place] [address] [place] Marc Social History Tobacco Use Types [...] PM EDT Office Visit Cardiology at [address] [phone] Jaspreet Kinsey MD [facility] [place] [address] 10/28/2023 9:00 AM EDT Office [place] [address] 10/29/2023 10:00 AM EDT Clinical [place] [address] 10/29/2023 10:15 AM EDT Procedure [place] [address] 11/01/2023 5:00 PM EDT Office Visit Gastroenterology at [place] [phone] Sleene Browning, PhD [facility] [place] [address] 11/22/2023 4:40 PM EDT Office Visit Cardiology at [place] [phone] Porsha Mcdaniels MD [facility] [place] [address] 12/13/2023 10:00 AM EDT Clinical Support [place] [phone] Lucero Romero, ALVA [facility] [place] [address] documented as of this encounter Visit Diagnoses Not on filedocumented in this encounter Care Teams Ediphone Operator Relationship Specialty Start Date End Date Tim Rogers DNP PCP - General Family Medicine 08/28/19 06/08/21 documented as of this encounter
--- OUTSIDE RECORDS SUMMARY | 2023-10-22 00:46 | XMS_ITS | Encounter Summary ---
Author Organization [facility] [place] [address] Care Team Providers Care Garbage Depot Worker Name Role Phone Tim Rogers DNP Primary Care Provider Encounter Details Date Type Department Care Team (Late st Contact Info) Description 08/28/2019 Ancillary Procedure [place] [address] Veronica Bello, TRACTOR OPERATOR HELPER [address] [place], [place] [id number] Social History Tobacco Use Types Packs/Day Years [...] PM EDT Office Visit Cardiology at [address] [phone] Jaspreet Kinsey MD [facility] [place] [address] 10/28/2023 9:00 AM EDT Office [place] [address] 10/29/2023 10:00 AM EDT Clinical [place] [address] 10/29/2023 10:15 AM EDT Procedure [place] [address] 11/01/2023 5:00 PM EDT Office [place] [address] Selene Browning, PhD [facility] [place] [address] 11/22/2023 4:40 PM EDT Office Visit Cardiology at [address] [phone] Porsha Mcdaniels MD [facility] [place] [address] 12/13/2023 10:00 AM EDT Clinical [place] [address] Lucero Romero, ALVA [facility] [place] [address] documented as of this encounter Procedures Procedure Name Priority Date/Time Associated Diagnosis Comments FILM LIBRARY STORAGE ONLY DX CHEST Routine 08/28/2019 12:00 AM EDT documented in this encounter Results * Film Library- Storage Only DX Chest (08/28/2019 12:00 AM EDT) Narrative [facility] - 08/29/2019 1:45 PM EDT This exam is auto-finalizing. It's purpose is for storage only. Veronica Bello TRACTOR OPERATOR HELPER IMG FILM LIBRARY ORD ERABLES [place], [place] documented in this encounter Visit Diagnoses Not on filedocumented in this encounter Care Teams Garbage Depot Worker Relationship Specialty Start Date End Date Sue, Tim Dege, DNP PCP - General Family Medicine 08/28/19 06/08/21 documented as of this encounter
--- OUTSIDE RECORDS SUMMARY | 2023-10-22 00:46 | XMS_ITS | Encounter Summary ---
Author Organization Formerly [facility] [address] Care Team Providers Care Community Service Representative Name Role Phone Tim Rogers DNP Primary Care Provider [phone] Reason for Visit * - Closed Specialty Diagnoses / Procedures Referred By Jayant harris Referred To Contact Procedures Film Library- Storage Only CT Chest Tim Rogers DNP [address] [place] [address] Referral ID Status Reason Start Date Expiration Date Visits Re quested Visits Authorized [id number] Closed 08/02/2020 08/02/2021 1 1 Encounter Details Date Type Department Care Team (Late Contact Info) Description 04/26/2020 Ancillary Procedure [place] [address] Tim Rogers DNP [address] [place], [place] [address] Social History Tobacco Use Types Packs/Day Years [...] PM EDT Office Visit Cardiology at [address] [place] [address] Jaspreet Kinsey MD [facility] [address] 10/28/2023 9:00 AM EDT Office Visit [place] [address] 10/29/2023 10:00 AM EDT Clinical Support [place] [address] 10/29/2023 10:15 AM EDT Procedure visit [place] [address] 11/01/2023 5:00 PM EDT Office [place] [address] Selene Browning, PhD [facility] [place] [address] 11/22/2023 4:40 PM EDT Office Visit Cardiology at [address] [phone] Porsha Mcdaniels MD [facility] [address] 12/13/2023 10:00 AM EDT Clinical Support [place] [address] [facility] [place] [address] documented as of this encounter Procedures Procedure Name Priority Date/Time Associated Diagnosis Comments FILM LIBRARY STORAGE ONLY CT CHEST Routine 04/26/2020 12:00 AM EST documented in this encounter Results * Film Library- Storage Only CT Chest (04/26/2020 12:00 AM EST) Narrative TYRONE BERRY - 08/02/2020 9:42 AM EDT This exam is auto-finalizing. It's purpose is for storage only. Tim Rogers DNP IMG FILM LIBRARY OR DERABLES Performing Organization Address City/State/[facility] Co de Phone Number [place], [place] documented in this encounter Visit Diagnoses Not on filedocumented in this encounter Care Teams Community Service Representative Relationship Specialty Start Date End Date Tim Rogers DNP PCP - General Family Medicine 08/28/19 06/08/21 documented as of this encounter
--- OUTSIDE RECORDS SUMMARY | 2023-10-22 00:46 | XMS_ITS | Encounter Summary ---
Author Organization [facility] [place] [address] Care Team Providers Care Tire Mounter Name Role Phone Tim Rogers DNP Primary Care Provider [phone] Encounter Details Date Type Department Care Team (Late st Contact Info) Description 09/09/2020 Telephone [place] [address] Beto Miller MD [facility] [place] [address] Social History Tobacco Use Types Packs/Day Years [...] ?? I reviewed CT scans performed in [facility] in 2019 (w/contrast) and April [...] the 2020 CT given the motion artifacts. Bearing Inspector images are below Combination of eosinophilia, adenopathy, [...] Diff) Please fax results to Dr Miller [phone] Standing Status: Future Standing Expiration Date: 03/11/2021 ??? Basic Metabolic Panel (non-fasting) Please fax results to Dr Miller [phone] Standing Status: Future Standing Expiration Date: 03/11/2021 ??? KATHRINE ([facility]CGP/APD/NLH) Please fax results to Dr Miller [phone] Standing Status: Future Standing Expiration Date: 03/11/2021 ??? Extractable Nuclear Antigen (JENNA) Ab Please fax results to Dr Miller [phone] Standing Status: Future Standing Expiration Date: 03/11/2021 ??? Angiotensin Converting Enzyme Please fax results to Dr Miller [phone] Standing Status: Future Standing Expiration Date: 03/11/2021 ??? CRP, acute inflammation Please fax results to Dr Miller [phone] Standing Status: Future Standing Expiration Date: 03/11/2021 ??? Cytoplasmic Neutrophilic Ab Please fax results to Dr Miller [phone] Standing Status: Future Standing Expiration Date: 09/09/2021 ??? Myeloperoxidase Ab Please fax results to Dr Miller [phone] Standing Status: Future Standing Expiration Date: 09/09/2021 ??? Proteinase-3 Antibody Please fax results to Dr Miller [phone] Standing Status: Future Standing Expiration Date: 09/09/2021 ??? Immunoglobulin E (IgE) Please fax results to Dr Miller [phone] Standing Status: Future Standing Expiration Date: 09/09/2021 ??? Immunoglobulins, Quantitative Standing Status: Future Standing Expiration Date: 09/09/2021 documented in this encounter Plan of Treatment Upcoming Encounters Date Type Department Care Team (Late st Contact Info) Description 10/26/2023 4:00 PM EDT Office Visit Cardiology at [address] [place] [address] Jaspreet Knisey MD [facility] [place] [address] 10/28/2023 9:00 AM EDT Office Visit [place] [address] 10/29/2023 10:00 AM EDT Clinical Support [place] [address] 10/29/2023 10:15 AM EDT Procedure visit [place] [address] 11/01/2023 5:00 PM EDT Office [place] [address] Selene Browning, PhD [facility] [place] [address] 11/22/2023 4:40 PM EDT Office Visit Cardiology at [address] Porsha Mcdaniels MD [facility] [place] [address] 12/13/2023 10:00 AM EDT Clinical Support Gastroenterology at [place] [phone] Lucero Romero, AL[place] [facility] [place] [address] documented as of this encounter Visit Diagnoses Diagnosis Acute recurrent sinusitis, unspecified location RAVI (dyspnea on exertion) Other dyspnea and respiratory abnormality Abnormal CT of the chest Nonspecific (abnormal) findings on radiological and other examination of other intrathoracic organs documented in this encounter Care Teams Tire Mounter Relationship Specialty Start Date End Date Tim Rogers DNP PCP - General Family Medicine 08/28/19 06/08/21 documented as of this encounter
--- OUTSIDE RECORDS SUMMARY | 2023-10-22 00:46 | XMS_ITS | Encounter Summary ---
Author Organization [facility] [place] [address] Care Team Providers Care Radiographer Mammographer Name Role Phone Tim Rogers DNP Primary Care Provider [phone] Encounter Details Date Type Department Care Team (Latest Contact Info) Description 08/01/2020 11:42 AM EDT - 08/01/2020 11:59 PM EDT Hospital En[place] [phone] Dyspnea, unspecified type Discharge Disposition: Home Social [...] as needed. fluticasone propionate (FLONASE) 50 mcg/actuation [place], Suspension 1 spray by Each Nare route [...] PM EDT Office Visit Cardiology at [address] [place] [address] Jaspreet Kinsey MD [facility] [place] [address] 10/28/2023 9:00 AM EDT Office [place] [address] 10/29/2023 10:00 AM EDT Clinical [place] [address] 10/29/2023 10:15 AM EDT Procedure [place] [address] 11/01/2023 5:00 PM EDT Office Visit [place] [address] Selene Browning, PhD [facility] [place] [address] 11/22/2023 4:40 PM EDT Office Visit Cardiology at [address] [address] Porsha Mcdaniels MD [facility] [place] [address] 12/13/2023 10:00 AM EDT Clinical [place] [address] [facility] [place] [address] documented as of this encounter Procedures Procedure [...] / FVC LLN 69 % COMPAS PFT DYT63-25 Actual Pre-BD 3.14 L/s COMPAS PFT OHI07-08 Pre-BD % of Predicted 116 % COMPAS PFT UPV38-83 Predicted 2.70 L/s COMPAS PFT QAW54-57 Pre-BD Z-Score 0.51 COMPAS PFT FVC Actual [...] PFT FEV1/FVC Post-BD Z-Score 1.94 COMPAS PFT DQI93-06 Actual Post-BD 4.26 L/s COMPAS PFT BUQ84-79 Post-BD % of Predicted 158 % COMPAS PFT WAV08-59 Post-BD Z-Score 1.67 COMPAS PFT DLCO Hb [...] type documented in this encounter Care Teams Radiographer Mammographer Relationship Specialty Start Date End Date Tim Rogers DNP PCP - General Family Medicine 08/28/19 06/08/21 documented as of this encounter
--- OUTSIDE RECORDS SUMMARY | 2023-10-22 00:46 | XMS_ITS | Encounter Summary ---
Author Organization [facility] Address [facility] [place] [address] Care Team Providers Care Calender Feeder Name Role Phone Dustin Nino MD Primary Care Provider [phone] Encounter Details Date Type Department Care Team (Late st Contact Info) Description 06/20/2010 [place] [address] Lashonda York MD [facility] [place] [address] Social History Tobacco Use Types Packs/Day Years [...] PM EDT Office Visit Cardiology at [address] [phone] Jaspreet Kinsey MD [facility] [place] [address] 10/28/2023 9:00 AM EDT [place] [address] 10/29/2023 10:00 AM EDT Clinical [place] [address] 10/29/2023 10:15 AM EDT [place] [address] 11/01/2023 5:00 PM EDT Office Visit Gastroenterology at [address] Selene Browning, PhD [facility] [place] [address] 11/22/2023 4:40 PM EDT Office Visit [place] [address] Porsha Mcdaniels MD [facility] [place] [address] 12/13/2023 10:00 AM EDT Clinical Support [place] [address] Lucero Romero, ALVA [facility] [place] [address] documented as of this encounter Visit Diagnoses Not on filedocumented in this encounter Care Teams Calender Feeder Relationship Specialty Start Date End Date Dustin Nino MD [facility] [place] [address] PCP - General 06/11/10 08/27/19 documented as of this encounter
--- OUTSIDE RECORDS SUMMARY | 2023-10-22 00:46 | XMS_ITS | Encounter Summary ---
[place] [address] Care Team Providers Care Recruiting Operations Consultant Name Role Phone Tim Rogers DNP Primary Care Provider [phone] Reason for Visit * Reason Onset Date Comments Nasal Congestion 09/02/2020 Cough 09/02/2020 Shortness of Breath 09/02/2020 Anorexia 09/02/2020 Lack of appetite Encounter Details Date Type Department Care Team (Late st Contact Info) Description 09/02/2020 Telephone [place] [address] Renetta Graham RN Nasal Congestion; Cough; Shortness [...] radha annita. Return Contact Number: Work - [phone], ask for Mihaela Preferred Pharmacy: [facility] on file. documented in this encounter Plan of Treatment Upcoming Encounters Date Type Department Care Team (Late st Contact Info) Description 10/26/2023 4:00 PM EDT Office Visit Cardiology at [address] [address] Jaspreet Kinsey MD [facility] [place] [address] 10/28/2023 9:00 AM EDT Office [place] [address] 10/29/2023 10:00 AM EDT Clinical [place] [address] 10/29/2023 10:15 AM EDT Procedure [place] [address] 11/01/2023 5:00 PM EDT Office [place] [address] Selene Browning, PhD [facility] PSYCHIATRY [place] [address] 11/22/2023 4:40 PM EDT Office Visit Cardiology at [place] [phone] Porsha Mcdaniels MD [facility] [place] [address] 12/13/2023 10:00 AM EDT Clinical Support [place] [address] Lucero Romero, ALVA [facility] [place] [address] documented as of this encounter Visit Diagnoses Not on filedocumented in this encounter Care Teams Recruiting Operations Consultant Relationship Specialty Start Date End Date Tim Rogers DNP PCP - General Family Medicine 08/28/19 06/08/21 documented as of this encounter
--- OUTSIDE RECORDS SUMMARY | 2023-10-22 00:46 | XMS_ITS | Encounter Summary ---
Author Organization [facility]ly [facility] [place] [address] Care Team Providers Care Pitting Machine Operator Name Role Phone Tim Rogers DNP Primary Care Provider Encounter Details Date Type Department Care Team (Late st Contact Info) Description 08/28/2019 12:05 AM EDT Ancillary Procedure [place] [address] Veronica Bello, CRIMINAL PROFILER [address] [place] [address] Social History Tobacco Use Types Packs/Day Years [...] PM EDT Office Visit Cardiology at [address] [phone] Jaspreet Kinsey MD [facility] [place] [address] 10/28/2023 9:00 AM EDT Office [place] [address] 10/29/2023 10:00 AM EDT Clinical [place] [address] 10/29/2023 10:15 AM EDT Procedure [place] [address] 11/01/2023 5:00 PM EDT Office [place] [address] Selene Browning, PhD [facility] [place] [address] 11/22/2023 4:40 PM EDT Office Visit Cardiology at [address] [phone] Porsha Mcdaniels MD [facility] [place] [address] 12/13/2023 10:00 AM EDT Clinical [place] [address] [facility] [place] [address] documented as of this encounter Procedures Procedure Name Priority Date/Time Associated Diagnosis Comments FILM LIBRARY STORAGE ONLY CT CHEST Routine 08/28/2019 12:05 AM EDT documented in this encounter Results * Film Library- Storage Only CT Chest (08/28/2019 12:05 AM EDT) Narrative [facility] - 08/29/2019 1:46 PM EDT This exam is auto-finalizing. It's purpose is for storage only. Veronica Bello CRIMINAL PROFILER IMG FILM LIBRARY ORD ERABLES [place], [place] documented in this encounter Visit Diagnoses Not on filedocumented in this encounter Care Teams Pitting Machine Operator Relationship Specialty Start Date End Date Tim Rogers DNP PCP - General Family Medicine 08/28/19 06/08/21 documented as of this encounter
--- OUTSIDE RECORDS SUMMARY | 2023-10-22 00:47 | XMS_ITS | Encounter Summary ---
Author Organization [facility] Address [address] [place] [address] Care Team Providers Care Head Of Digital Advertising & Integration Name Role Phone Unknown, Provider Primary Care Provider [phone] Encounter Details Date Type Department Care Team (Late st Contact Info) Description 09/06/2020 Lab Requisition [facility] Pathology & Laboratory Medicine - [address] [address] Outr Resulting Lab, Provider Social History Tobacco [...] Lab MICROBIOLOGY - GENERAL ORDERABLES [facility] [address] [place] [address] * COVID-19 TESTING (09/05/2020 14:00 EDT) COVID-19 rt-PCR Result Negative Negative 09/07/2020 14:05 EDT [facility] Comment: This test has [...] developed and its performance characteristics determined by [facility]. It has not been cleared or approved [...] testing. This test is based on the [facility] COVID-19 Emergency Use Authorization (EUA) assay, with minor modification as defined by the FDA Performed on the TapShieldo 7 Flex RT-PCR System. Performing Lab [facility] Lab 09/07/2020 14:05 EDT [facility] Swab 09/05/2020 14:0 0 EDT 09/06/2020 16:13 EDT Provider Outr Resulting Lab MICROBIOLOGY - GENERAL ORDERABLES [facility] [address] [place] [address] documented in this encounter Visit Diagnoses Not on filedocumented in this encounter Care Teams Head Of Digital Advertising & Integration Relationship Specialty Start Date End Date Unknown, Provider, PCP - General 01/28/10 documented as of this encounter
--- OUTSIDE RECORDS SUMMARY | 2023-10-22 00:47 | XMS_ITS | Clinical Summary ---
Author Organization [facility] Address [address] [place] [address] Care Team Providers Care Accounts Payable Accountant Name Role Phone Unknown, Provider Primary Care Provider [phone] Social History Tobacco Use Types Packs/Day Years [...] C Antibody Negative Negative 05/20/2020 11:15 EDT [facility] Blood VENOUS BLOOD / Unknown 05/17/2020 14:00 EST 05/19/2020 16:37 EDT Provider Outr Resulting Lab CHEMISTRY & BLOOD GAS ORDERABLES [facility] [address] [place] [address] from Last 3 Months or Most Recently Relevant to Health Maintenance Care Teams Accounts Payable Accountant Relationship Specialty Start Date End Date Unknown, Provider, PCP - General 01/28/10
--- OUTSIDE RECORDS SUMMARY | 2023-10-22 00:47 | XMS_ITS | Encounter Summary ---
Author Organization [facility] Address [address] [place] [address] Care Team Providers Care Packaging Clerk Name Role Phone Unknown, Provider Primary Care Provider [phone] Encounter Details Date Type Department Care Team (Late st Contact Info) Description 08/28/2019 Lab Requisition [facility] Pathology & Laboratory Medicine - [address] [address] Outr Resulting Lab, Provider Social History Tobacco [...] Outr Resulting Lab MICROBIOLOGY - GENERAL ORDERABLES [facility] [address] [place] [address] * COVID-19 TESTING (08/28/2019 21:50 EDT) COVID-19 rt-PCR Result Negative Negative 08/29/2019 12:31 EDT [facility] Comment: This test has [...] history, and epidemiological information. Performed on the [employer] Fusion instrument Performing Lab [facility] Lab 08/29/2019 12:31 EDT [facility] Swab 08/28/2019 21:5 0 EDT 08/29/2019 8:30 EDT Provider Outr Resulting Lab MICROBIOLOGY - GENERAL ORDERABLES [facility] [address] [place] [address] documented in this encounter Visit Diagnoses Not on filedocumented in this encounter Care Teams Packaging Clerk Relationship Specialty Start Date End Date Unknown, Provider, PCP - General 01/28/10 documented as of this encounter
--- OUTSIDE RECORDS SUMMARY | 2023-10-22 00:47 | XMS_ITS | Encounter Summary ---
Author Organization [facility] Address [facility] [place] [address] Care Team Providers Care Radio Television Announcer Name Role Phone Dustin Nino MD Primary Care Provider [phone] Encounter Details Date Type Department Care Team (Late st Contact Info) Description 06/17/2010 [place] [address] Lashonda York MD [facility] ALLERGY [place] [address] Social History Tobacco Use Types Packs/Day Years [...] PM EDT Office Visit Cardiology at [address] [phone] Jaspreet Kinsey MD [facility] [place] [address] 10/28/2023 9:00 AM EDT Office [place] [address] 10/29/2023 10:00 AM EDT Clinical [place] [address] 10/29/2023 10:15 AM EDT Procedure [place] [address] 11/01/2023 5:00 PM EDT Office Visit Gastroenterology at [address] Selene Browning, PhD [facility] [place] [address] 11/22/2023 4:40 PM EDT Office [place] [address] Porsha Mcdaniels MD [facility] [place] [address] 12/13/2023 10:00 AM EDT Clinical [place] [address] Lucero Romero, ALVA [facility] [place] [address] documented as of this encounter Visit Diagnoses Not on filedocumented in this encounter Care Teams Radio Television Announcer Relationship Specialty Start Date End Date Dustin Nino MD [facility] 1 [facility] [place] [address] PCP - General 06/11/10 08/27/19 documented as of this encounter
--- OUTSIDE RECORDS SUMMARY | 2023-10-22 00:47 | XMS_ITS | Referral Summary ---
Author Organization [facility] Address [address] [place] [address] Care Team Providers Care Temporary Help Agency Referral Clerk Name Role Phone Unknown, Provider Primary [...] C Antibody Negative Negative 05/20/2020 11:15 EDT [facility] Blood VENOUS BLOOD / Unknown 05/17/2020 14:00 EST 05/19/2020 16:37 EDT Provider Outr Resulting Lab CHEMISTRY & BLOOD GAS ORDERABLES [facility] [address] [place] [address] from Last 3 Months or Most Recently Relevant to Health Maintenance Care Teams Temporary Help Agency Referral Clerk Relationship Specialty Start Date End Date Unknown, Provider, PCP - General 01/28/10
--- OUTSIDE RECORDS SUMMARY | 2023-10-22 00:47 | XMS_ITS | Encounter Summary ---
Author Organization [facility] Address [address] [place] [address] Care Team Providers Care Legislative Analyst Name Role Phone Unavailable Primary Care Provider Unavailabl e Encounter Details Date Type Department Care Team (Late st Contact Info) Description 01/19/2000 Results Only [facility] conversion [address] [place] [address] Channing Brand MD [address] [place] [address] Social History Tobacco Use Types [...] ? LOIDA ROQUE ? Accession #: ? [id number] ? : ? 1970 (Age: 29) ??F [...] reviewed and electronically signed by: Gerald Nino [facility] Report ??Date: 01/22/2000 16:44 By the signature [...] and #1. L pelvic sidewall is a gnan-brown cylindrical piece of soft tissue that measures [...] a discernible squamocolumnar junction. BLOCK RHODES B1,B2 ?Resistor Inspector section of anterior endomyometrium B3 ?Possible myomatous nodule from the anterior half of the specimen B4 ?Resistor Inspector section of posterior endomyometrium B5 ?Resistor Inspector section of posterior endo- and ectocervix B6 ?Anterior endo- and ectocervix (Dr. Garcia)/[facility] End of Report [facility] 01/19/2000 01/20/2000 14: 59 EST Channing Brand MD PATHOLOGY ORDERABLES [facility] [address] [place] [address] documented in this encounter Visit Diagnoses Not on filedocumented in this encounter
--- OUTSIDE RECORDS SUMMARY | 2023-10-22 00:47 | XMS_ITS | Encounter Summary ---
Author Organization [facility] Address [address] [place] [address] Care Team Providers Care Author Agent Name Role Phone Unavailable Primary Care Provider Unavailabl e Encounter Details Date Type Department Care Team (Late st Contact Info) Description 01/23/2010 Results Only [facility] Laboratory Services - [facility] ([facility] [address] [place], [place] [id number] Kylee Vaca MD [address] [place] [address] Social History Tobacco Use Types [...] ? ROHAN, LOIDA ? Accession #: ? [id number] ? : ? 1970 (Age: 39) ??F ? Collect Date: ? 01/23/2010 ? Location: ? [facility] ? Receive Date: ? 01/24/2010 ? Provider: KYLEE VACA MD ? Copy to: DARWIN LEMON CLEARING INSPECTOR ? Final Pathologic Diagnosis: ? Skin of [...] MD PATHOLOGY ORDERABLES [facility] [address] [place] [address] documented in this encounter Visit Diagnoses Not on filedocumented in this encounter
--- OUTSIDE RECORDS SUMMARY | 2023-10-22 00:47 | XMS_ITS | Encounter Summary ---
Author Organization [facility] Address [address] [place] [address] Care Team Providers Care Tankage Grinder Operator Name Role Phone Unavailable Primary Care Provider Unavailabl e Encounter Details Date Type Department Care Team (Late st Contact Info) Description 01/02/2000 Results Only [facility] conversion [address] [place] [address] Channing Brand MD [address] [place] [address] Social History Tobacco Use Types [...] ? LOIDA ROQUE ? Accession #: ? [id number] : ? 1970 (Age: 29) ??F ?Collect [...] Brand MD PATHOLOGY ORDERABLES [facility] [address] [place] [address] documented in this encounter Visit Diagnoses Not on filedocumented in this encounter
--- OUTSIDE RECORDS SUMMARY | 2023-10-22 00:47 | XMS_ITS | Encounter Summary ---
Author Organization [facility] Address [address] [place] [address] Care Team Providers Care Nurse Discharge Name Role Phone Unknown, Provider Primary Care Provider Encounter Details Date Type Department Care Team (Late st Contact Info) Description 09/16/2020 Lab Requisition [facility] Pathology & Laboratory Medicine - [address] [address] Outr Resulting Lab, Provider Social History Tobacco [...] IgE 13 <158 IU/mL 09/18/2020 8:45 EDT [facility] Blood VENOUS BLOOD / Unknown 09/16/2020 13:43 EDT 09/16/2020 20:51 EDT Provider Outr Resulting Lab CHEMISTRY & BLOOD GAS ORDERABLES [facility] [address] [place] [address] * EXTRACTABLE NUCLEAR ANTIGEN PANEL (09/16/2020 13:43 EDT) SSA Antibody 1.2 <20.0 Units 09/17/2020 15:28 EDT [facility] Comment: ? Negative: <20.0 Units ? Weak Positive: 20.0 - 39.9 Units ? Moderate Positive: 40.0 - 80.0 Units ? Strong Positive: >80.0 Units Results were obtained with the [employer] QUANTA Lite SS-A VAIBHAV. ??SS-A values obtained with different manufacturers' assay methods may not be used interchangeably. ??The magnitude of the reported IgG levels cannot be correlated to an endpoint titer. SSB Antibody 4.9 <20.0 Units 09/17/2020 15:28 [facility] Comment: ? Negative: <20.0 Units ? Weak Positive: 20.0 - 39.9 Units ? Moderate Positive: 40.0 - 80.0 Units ? Strong Positive: >80.0 Units Results were obtained with the [employer] QUANTA Lite SS-B VAIBHAV. ??SS-B values obtained with different manufacturers' assay methods may not be used interchangeably. ??The magnitude of the reported IgG levels cannot be correlated to an endpoint titer. SM (Alcantar) Antibody 3.4 <20.0 Units 09/17/2020 15:28 [facility] Comment: ? Negative: <20.0 Units ? Weak Positive: 20.0 - 39.9 Units ? Moderate Positive: 40.0 - 80.0 Units ? Strong Positive: >80.0 Units Results were obtained with the [employer] QUANTA Lite Sm VAIBHAV. ??Sm values obtained with different manufacturers' assay methods may not be used interchangeably. ??The magnitude of the reported IgG levels cannot be correlated to an endpoint titer. PRESSROOM WORKER Antibody 1.5 <20.0 Units 09/17/2020 15:28 EDT [facility] Comment: ? Negative: <20.0 Units ? Weak Positive: 20.0 - 39.9 Units ? Moderate Positive: 40.0 - 80.0 Units ? Strong Positive: >80.0 Units Results were obtained with the [employer] Quanta Lite PRESSROOM WORKER VAIBHAV. PRESSROOM WORKER values obtained with different foot roentgenologist's assay methods may not be used interchangeaby. ??The magnitude of the reported IgG levels cannot be be correlated to an endpoint titer. A positive result in the [employer] Lite PRESSROOM WORKER VAIBHAV indicates the presence of antibodies reactive with the PRESSROOM WORKER/Sm complex but cannot distinguish between anti-Sm and anti-PRESSROOM WORKER activity. Blood VENOUS BLOOD / Unknown 09/16/2020 13:43 EDT 09/16/2020 20:51 EDT Provider Outr Resulting Lab IMMUNOLOGY A ND SEROLOGY ORDERABLES Performing Organization Address City/State/[facility] Co de Phone Number [facility] [address] [place] [address] * (ABNORMAL) ANTI NUCLEAR AB (KATHRINE), IFA (09/16/2020 13:43 EDT) KATHRINE Interpretation Positive(A) Negative 09/17/2020 15:08 EDT [facility] Comment: For titers greater [...] Pattern 1 1:160 Speckled 09/17/2020 15:08 EDT [facility] Blood VENOUS BLOOD / Unknown 09/16/2020 13:43 EDT 09/16/2020 20:51 EDT Narrative [facility] - 09/17/2020 15:08 EDT Results were obtained with the [employer] NOVA Lite HEp-2 KATHRINE Kit by indirect immunofluorescence. Provider Outr Resulting Lab IMMUNOLOGY A ND SEROLOGY ORDERABLES [facility] [address] [place] [address] documented in this encounter Visit Diagnoses Not on filedocumented in this encounter Care Teams Nurse Discharge Relationship Specialty Start Date End Date Unknown, Provider, PCP - General 01/28/10 documented as of this encounter
--- OUTSIDE RECORDS SUMMARY | 2023-10-22 00:47 | XMS_ITS | Encounter Summary ---
Author Organization [facility] Address [address] [place] [address] Care Team Providers Care Blender Snuff Name Role Phone Unknown, Provider Primary Care Provider [phone] Encounter Details Date Type Department Care Team (Late st Contact Info) Description 07/27/2022 Lab Requisition [facility] Pathology & Laboratory Medicine - [facility] [address] [place] [address] Outr Resulting Lab, Provider Social History Tobacco [...] Lyme Ab Negative Negative 07/28/2022 10:37 EDT [facility] Blood VENOUS BLOOD / Unknown 07/27/2022 10:39 EDT 07/27/2022 16:45 EDT Provider Outr Resulting Lab IMMUNOLOGY A ND SEROLOGY ORDERABLES [facility] [address] [place] [address] documented in this encounter Visit Diagnoses Not on filedocumented in this encounter Care Teams Blender Snuff Relationship Specialty Start Date End Date Unknown, ProviderMD PCP - General 01/28/10 documented as of this encounter
--- OUTSIDE RECORDS SUMMARY | 2023-10-22 00:47 | XMS_ITS | Encounter Summary ---
Author Organization [facility] Address [address] [place] [address] Care Team Providers Care Caustic Loader Name Role Phone Unknown, Provider Primary Care Provider Encounter Details Date Type Department Care Team (Late st Contact Info) Description 07/29/2022 Lab Requisition [facility] Pathology & Laboratory Medicine - [address] [address] Outr Resulting Lab, Provider Social History Tobacco [...] 64 - 147 % 08/05/2022 11:55 EDT [facility] Comment: a.Acquired Protein S deficiencies [...] HEMATOLOGY & PF4 ORDERABLES Performing Organization Address [facility] Co de Phone Number [facility] [address] [place] [address] * PROTEIN C ACTIVITY (07/29/2022 9:25 EDT) Protein C Clot 132 71 - 199 % 08/05/2022 11:55 EDT [facility] Comment: a. Acquired Protein C [...] HEMATOLOGY & PF4 ORDERABLES Performing Organization Address City/[facility]/ZIP Co de Phone Number [facility] [address] [place] [address] documented in this encounter Visit Diagnoses Not on filedocumented in this encounter Care Teams Caustic Loader Relationship Specialty Start Date End Date Unknown, Provider, PCP - General 01/28/10 documented as of this encounter
--- OUTSIDE RECORDS SUMMARY | 2023-10-22 00:47 | XMS_ITS | Encounter Summary ---
Author Organization [facility] Address [address] [place] [address] Care Team Providers Care Cardiovascular Lab Director Name Role Phone Unknown, Provider Primary Care Provider [phone] Encounter Details Date Type Department Care Team (Late st Contact Info) Description 05/18/2020 Lab Requisition [facility] Pathology & Laboratory Medicine - [address] [address] Outr Resulting Lab, Provider Social History Tobacco [...] 4th Generation Negative Negative 05/20/2020 11:35 EDT [facility] Comment: If acute HIV-1 infection is suspected in a high risk ??patient, submit plasma specimen for HIV-1 RNA quantitation test. Fourth Generation assay performed on the [employer]. Blood VENOUS BLOOD / Unknown 05/17/2020 14:00 EST 05/19/2020 16:27 EDT Provider Outr Resulting Lab IMMUNOLOGY A ND SEROLOGY ORDERABLES [facility] [address] [place] [address] documented in this encounter Visit Diagnoses Not on filedocumented in this encounter Care Teams Cardiovascular Lab Director Relationship Specialty Start Date End Date Unknown, Provider, PCP - General 01/28/10 documented as of this encounter
--- OUTSIDE RECORDS SUMMARY | 2023-10-22 00:47 | XMS_ITS | Encounter Summary ---
Author Organization [facility] Address [address] [place] [address] Care Team Providers Care Acoustic Intelligence Specialist Name Role Phone Unknown, Provider Primary Care Provider [phone] Encounter Details Date Type Department Care Team (Late st Contact Info) Description 01/07/2021 Lab Requisition [facility] Pathology & Laboratory Medicine - [address] [address] Outr Resulting Lab, Provider Social History Tobacco [...] Priority Date/Time Associated Diagnosis Comments [facility] 01/06/2021 14:00 EDT COVID-19 TESTING Routine 01/06/2021 14:0 0 EDT documented in this encounter Results * COVID-19 TEST [facility] LAB PCR (01/06/2021 14:00 EDT) Swab ENTIRE NASOPHARYNX / Unknown 01/06/2021 14:00 EDT 01/07/2021 17:19 EDT Provider Outr Resulting Lab MICROBIOLOGY - GENERAL ORDERABLES [facility] [address] [place] [address] * COVID-19 TESTING (01/06/2021 14:00 EDT) COVID-19 rt-PCR Result Negative Negative 01/08/2021 12:42 EDT [facility] Comment: This test [...] was performed using the ric SARS-CoV-2 assay ([employer] on the Ric 6800 System Performing Lab Ric [address] [facility] Lab 01/08/2021 12:42 EDT [facility] Swab 01/06/2021 14:0 0 EDT 01/07/2021 17:19 EDT Provider Outr Resulting Lab MICROBIOLOGY - GENERAL ORDERABLES Performing Organization Address City/State/[facility] Co de Phone Number [facility] [address] [place] [address] documented in this encounter Visit Diagnoses Not on filedocumented in this encounter Care Teams Acoustic Intelligence Specialist Relationship Specialty Start Date End Date Unknown, Provider, PCP - General 01/28/10 documented as of this encounter
--- OUTSIDE RECORDS SUMMARY | 2023-10-22 00:47 | XMS_ITS | Encounter Summary ---
Author Organization [facility] Address [address] [place] [address] Care Team Providers Care Controls Technician Name Role Phone Unknown, Provider Primary Care Provider Encounter Details Date Type Department Care Team (Late st Contact Info) Description 05/18/2020 Lab Requisition [facility] Pathology & Laboratory Medicine - [address] [address] Outr Resulting Lab, Provider Social History Tobacco [...] C Antibody Negative Negative 05/20/2020 11:15 EDT [facility] Blood VENOUS BLOOD / Unknown 05/17/2020 14:00 EST 05/19/2020 16:37 EDT Provider Outr Resulting Lab CHEMISTRY & BLOOD GAS ORDERABLES [facility] [address] [place] [address] * CELIAC DISEASE PANEL (05/17/2020 14:00 EST) Tissue Transglutaminase Antibody IGA <1.2 <4.0 U/mL 05/20/2020 13:21 EDT [facility] Comment: A negative result may be due to IgA deficiency and does not rule out celiac disease. ? Negative: ??<4.0 U/mL ? Weak Positive: ??4.0 - 10.0 U/mL ? Positive: ??>10.0 U/mL Results were obtained with the [employer] Lite R h-tTG IgA VAIBHAV assay on the [employer]. IgA 283 85 - 499 mg/dL 05/20/2020 13:21 EDT [facility] Celiac Disease Interpretation Negative Serology. Celiac disease unlikely. Approximately 10% of patients with celiac disease are seronegative. Patients who are already adhering to a gluten-free diet may also be seronegative. If celiac disease is highly clinically suspected, referral to gastroenterology for additional evaluation is recommended. 05/20/2020 13:21 EDT [facility] Blood VENOUS BLOOD / Unknown 05/17/2020 14:00 EST 05/19/2020 16:27 EDT Provider Outr Resulting Lab IMMUNOLOGY A ND SEROLOGY ORDERABLES Performing Organization Address City/State/[facility] [[email or web address]] Co de Phone Number [facility] [address] [place] [address] documented in this encounter Visit Diagnoses Not on filedocumented in this encounter Care Teams Controls Technician Relationship Specialty Start Date End Date Unknown, Provider, PCP - General 01/28/10 documented as of this encounter
--- OUTSIDE RECORDS SUMMARY | 2023-10-22 00:47 | XMS_ITS | Encounter Summary ---
Author Organization [facility] Address [address] [place] [address] Care Team Providers Care Tire Cord Weaver Name Role Phone Unavailable Primary Care Provider Unavailabl e Encounter Details Date Type Department Care Team (Late st Contact Info) Description 05/15/1999 Results Only [facility] conversion [address] [place] [address] Channing Brand MD [address] [place] [address] Social History Tobacco Use Types [...] ? LOIDA ROQUE ? Accession #: ? [id number] ? : ? 1970 (Age: 29) ??F [...] MD PATHOLOGY ORDERABLES Performing Organization Address City/State/[facility] Co de Phone Number [facility] [address] [place] [address] documented in this encounter Visit Diagnoses Not on filedocumented in this encounter
--- OUTSIDE RECORDS SUMMARY | 2023-10-22 00:47 | XMS_ITS | Encounter Summary ---
Author Organization [facility] Address [facility] [place] [address] Care Team Providers Care Small Wind Energy Installer Name Role Phone Dustin Nino MD Primary Care Provider [phone] Encounter Details Date Type Department Care Team (Late st Contact Info) Description 06/19/2010 [place] [address] Lashonda York MD [facility] [place] [address] Social History Tobacco Use Types Packs/Day Years [...] PM EDT Office Visit Cardiology at [address] [phone] Jaspreet Kinsey MD [facility] [place] [address] 10/28/2023 9:00 AM EDT Office [place] [address] 10/29/2023 10:00 AM EDT Clinical [place] [address] 10/29/2023 10:15 AM EDT Procedure [place] [address] 11/01/2023 5:00 PM EDT Office Visit Gastroenterology at [address] Selene Browning, PhD [facility] [place] [address] 11/22/2023 4:40 PM EDT [place] [address] Porsha Mcdaniels MD [facility] [place] [address] 12/13/2023 10:00 AM EDT Clinical Support [place] [address] Lucero Romero, [facility] [place] [place] [address] documented as of this encounter Visit Diagnoses Not on filedocumented in this encounter Care Teams Small Wind Energy Installer Relationship Specialty Start Date End Date Dustin Nino MD [facility] [address] [facility] [place] [address] PCP - General 06/11/10 08/27/19 documented as of this encounter
--- NOTE | 2023-10-22 09:43 | DI.RAD_ITS ---
Exam(s) XR ANKLE LT COMPLETE EXAM: XR ANKLE LT COMPLETE CLINICAL HISTORY: LT ANKLE PAIN, M25.572,PAIN OVER LT LAT MALLEOLUS AFTER ROLLING INJURY TECHNIQUE: 2D digital imaging was performed of the left ankle. Three images were obtained. AP, lat eral and oblique views were obtained. COMPARISON: CR XR ANKLE LT COMPLETE from 10/05/2023 FINDINGS: BONES: There is a question of a tiny density at the tip of the lateral malleolus which may represent a small avulsed fracture fragment. No bony destructive lesion is seen. There is a plantar calcaneal spur. JOINTS:The ankle mortise is normally aligned. SOFT TISSUE: There is soft tissue swelling of the ankle particularly laterally. IMPRESSION: Question of a tiny avulsed fracture at the tip of the lateral malleolus. DATA REPOSITORY: RADIATION DOSE DELIVERED:
== END 2023-10-22 00:52 ==
LOC: DI 00:32
PROVIDERS: PCP Physician Assistant; Visit Provider Physician Assistant
DX: M25.572 Pain in left ankle and joints of left foot (principal)
CPT/HCPCS: 73610

== ENCOUNTER 2023-12-30 12:13 | Emergency (ER) | payer BC, SELFPAY ==
[2023-12-30] VITALS (17 sets, daily range): BP systolic 100–108; BP diastolic 44–70; PULSE 47–59; RESP 12–20; TEMP 35.9; O2SAT 91–98
--- NOTE | 2023-12-30 12:15 | RT.EKG_ITS ---
APPROVED REPORT Exam: Resting ECG Reason for Exam: chest pain Patient Location: E HR:51 bpm ECG Measurements Heart Rate 51 AXIS OR 185 P 59 QRSd 97 QRS 74 QT 524 T 76 QTc 483 Conclusion Sinus bradycardia...rate< [address] depression, diffuse leads...ST <-0.07mV, ant/lat/inf
[2023-12-30] MEDS: Aspirin 81 MG CHEW 324 MG CH (12:41)
--- NOTE | 2023-12-30 12:44 | W.ED.GENAD ---
Discharge Plan Disposition Patient Disposition: Home Discharge Details Clinical Impression: Right upper quadrant abdominal pain Primary Care Provider: Polo Pearce ED Provider: Dona Agarwal Home Meds and New Rx's Prescriptions: Continued atorvastatin 80 mg tablet 40 mg PO QPM fluticasone propionate [Flonase Allergy Relief] 9.9 ML spray,suspension 2 spray NS DAILY duloxetine [Cymbalta] 60 mg capsule,delayed release(DR/EC) 60 mg PO DAILY Qty: 30 2RF albuterol sulfate 90 mcg/actuation HFA aerosol inhaler 2 puff inhalation Q4H PRN loratadine [Allergy Relief (loratadine)] 10 mg tablet 10 mg PO DAILY PRN nitroglycerin 0.4 mg tablet, sublingual 0.4 mg sublingual Q5M PRN Rx Instructions: do not exceed 3 doses per episode gabapentin 600 mg tablet 600 mg PO QHS Qty: 90 3RF apixaban 5 mg tablet 5 mg PO BID Jardiance 10 mg tablet 10 mg PO DAILY montelukast 10 mg tablet 10 mg PO DAILY PRN melatonin 10 mg capsule 10 mg PO HS PRN metoprolol tartrate 25 mg tablet 12.5 mg PO DAILY metolazone 2.5 mg tablet 2.5 mg PO PRN PRNQty: 0 0RF No Action ropinirole 1 mg tablet 1 mg PO BID Rx Instructions: @ 1600 and 2100 Aimovig Autoinjector 140 mg/mL auto-injector 140 mg subcut QMONTH Qty: 1 11RF potassium chloride 20 mEq tablet,ER particles/crystals 40 meq PO BID clobetasol 0.05 % ointment 1 applic topical DIRECTED omeprazole 20 mg capsule,delayed release(DR/EC) 20 mg PO DAILY topiramate [Topamax] 100 mg tablet 100 mg PO QHS Qty: 90 3RF ranolazine 1,000 mg tablet extended release 12 hr 1,000 mg PO BID spironolactone 25 mg tablet 25 mg PO DAILY torsemide 20 mg Tablet 20 mg PO DAILY Qty: 90 0RF Discharge Instructions Additional Instructions: I encourage you to follow-up with your primary care provider and 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 Your workup today was very reassuring. There were no concerning abnormalities on blood work or CT. There is no evidence of occlusion in the arteries in your abdomen; the stent in your superior mesenteric artery is patent. I encourage you to continue using your gabapentin, Tylenol as needed, and heating pads for discomfort. Return to emergency care if you develop new severe pain, uncontrollable vomiting, fevers associated with belly pain, or if you are very worried and need to be rechecked again immediately. Referrals: Polo Pearce [Primary Care Provider] - [facility] General Date/Time Provider Initiated Documentation: 12/30/23 12:19. HPI Narrative: Indira is a 53-year-old female with history of superior mesenteric artery stenosis with stenting, NSTEMI, CKD stage III, GERD, and PE who presents to the emergency department today for evaluation of left upper quadrant pain that radiates around to the sternum. She reports this has been ongoing for months since she had a mesenteric artery stent placed in June 2023. She does state it has been increasing in intensity recently. This is accompanied by shortness of breath/pain with deep breathing and mild nausea. She denies fever/chills, dizziness, presyncope, vomiting, change in bowel or bladder function. She is anticoagulated with Eliquis. Physical exam remarkable for tenderness to palpation of left upper quadrant. Abdomen is soft, nondistended, normoactive bowel sounds. Easy work of breathing, lung sounds clear bilaterally. Normal heart sounds. DDx includes but is not limited to: ACS, pancreatitis, hepatitis, biliary colic, mesenteric ischemia, GERD, chronic abdominal pain I did review [facility] records, including recent gastroenterology and psychiatry notes. Patient does have a history of chronic abdominal pain which has been difficult to treat and diagnose, likely due to dysmotility issues. She did have mesenteric artery stenting in June 2023, however I was not able to find this procedure note. I independently interpreted the following tests: Troponin is elevated but trending flat (290,301,276);patient has a history of chronically elevated troponin and these are the lowest values she has on file for high-sensitivity troponin. CBC, CMP, and lipase reassuring. CTA chest/abdomen/pelvis reassuring, no acute abnormalities noted. While in the Ed, Indira received tylenol with little improvement in symptoms. Overall workup today reassuring. This does appear consistent with chronic abdominal pain, which pt has been working up with gastroenterology and PCP. Recommend close f/u with PCP. Advised continued use of gabapentin and other medications prescribed for discomfort, as well as nonpharmacologic measures such as heating pad. Reviewed red flags indicating need for return to emergency care. Related Data Home Medications ?Medication ?Instructions ?Recorded ?Confirmed fluticasone propionate 50 2 spray NS DAILY 12/23/16 12/30/23 mcg/actuation nasal spray,suspension (Flonase Allergy Relief) ropinirole 1 mg tablet 1 mg PO BID 06/12/20 12/30/23 duloxetine 60 mg capsule,delayed 60 mg PO DAILY #30 mg 08/19/20 12/30/23 release (Cymbalta) albuterol sulfate 90 mcg/actuation 2 puff inhalation Q4H PRN 05/30/21 12/30/23 aerosol inhaler loratadine 10 mg tablet (Allergy 10 mg PO DAILY PRN 05/30/21 12/30/23 Relief (loratadine)) nitroglycerin 0.4 mg sublingual 0.4 mg sublingual Q5M PRN 09/25/21 12/30/23 tablet clobetasol 0.05 % topical ointment 1 applic topical DIRECTED 08/28/22 12/30/23 omeprazole 20 mg capsule,delayed 20 mg PO DAILY 08/28/22 12/30/23 release gabapentin 600 mg tablet 600 mg PO QHS #90 tabs 01/04/23 12/30/23 topiramate 100 mg tablet (Topamax) 100 mg PO QHS #90 tab-caps 01/18/23 12/30/23 melatonin 10 mg capsule 10 mg PO HS PRN 04/16/23 12/30/23 apixaban 5 mg tablet 5 mg PO BID 08/13/23 12/30/23 empagliflozin 10 mg tablet 10 mg PO DAILY 08/13/23 12/30/23 (Jardiance) ranolazine 1,000 mg 1,000 mg PO BID 08/13/23 12/30/23 tablet,extended release,12 hr spironolactone 25 mg tablet 25 mg PO DAILY 08/13/23 12/30/23 atorvastatin 80 mg tablet 40 mg PO QPM 09/16/23 12/30/23 montelukast 10 mg tablet 10 mg PO DAILY PRN 09/16/23 12/30/23 potassium chloride 20 mEq 40 meq PO BID 09/16/23 12/30/23 tablet,extended release(part/cryst) metolazone 2.5 mg tablet 2.5 mg PO PRN PRN #0 tabs 09/25/23 12/30/23 torsemide 20 mg tablet 20 mg PO DAILY #90 tabs 09/25/23 12/30/23 erenumab-aooe 140 mg/mL 140 mg subcut QMONTH #1 mL 09/28/23 12/30/23 subcutaneous auto-injector (Aimovig Autoinjector) metoprolol tartrate 25 mg tablet 12.5 mg PO DAILY 10/05/23 12/30/23 Previous Rx's ?Medication ?Instructions ?Recorded duloxetine 60 mg capsule,delayed 60 mg PO DAILY #30 mg 08/19/20 release (Cymbalta) gabapentin 600 mg tablet 600 mg PO QHS #90 tabs 01/04/23 topiramate 100 mg tablet (Topamax) 100 mg PO QHS #90 tab-caps 01/18/23 metolazone 2.5 mg tablet 2.5 mg PO PRN PRN #0 tabs 09/25/23 torsemide 20 mg tablet 20 mg PO DAILY #90 tabs 09/25/23 erenumab-aooe 140 mg/mL 140 mg subcut QMONTH #1 mL 09/28/23 subcutaneous auto-injector (Aimovig Autoinjector) Allergies Allergy/AdvReac Type Severity Reaction Status Date / Time acetaminophen (From Tylenol) AdvReac Intermediate jittery Unverified 12/30/23 12:26 like too much caffeine clobetasol AdvReac Intermediate Skin Rash Verified 12/30/23 12:26 codeine AdvReac Mild Not able Verified 12/30/23 12:26 to sleep ibuprofen AdvReac migraines Unverified 12/30/23 12:26 environmental Allergy Mild sneezing/triggers Uncoded 12/30/23 12:26 her asthma General Stated Complaint: Chest Pain MIKAELA: 3 Course Vital Signs Vital signs: Vital Signs Temperature 35.9 C L 12/30/23 12:21 Pulse 51 L 12/30/23 12:21 Respiratory Rate 20 12/30/23 12:21 Blood Pressure 107/70 12/30/23 12:21 Pulse Oximetry 96 12/30/23 12:21 Temperature 35.9 C L 12/30/23 12:21 Temperature Source Temporal Artery Scan 12/30/23 12:21 Pulse 51 L 12/30/23 12:21 Respiratory Rate 20 12/30/23 12:21 Blood Pressure 107/70 12/30/23 12:21 Blood Pressure Position Sitting 12/30/23 12:21 Pulse Oximetry 96 12/30/23 12:21 Pain Level 10 12/30/23 12:21 Medical Decision Making Imaging Data Radiologic Study: Radiologist's impression: Exam(s) CT THORAX ABD/PEL CTA EXAM: CT THORAX ABD/PEL CTA CLINICAL HISTORY: RUQ pain radiating , h/o abdominal artery stenting. TECHNIQUE: Imaging Protocol: Axial CT angiography was performed with multi-slice acquisition and multi-planar and/or 3D reconstructions. Computer aided detection (CAD) was utilized. CONTRAST MATERIAL: Intravenous: Omnipaque 350 contrast volume:125 mL Oral: No COMPARISON: CT CT RENAL COLIC WO from 03/25/[address] CHEST PE CTA from 08/28/2023 FINDINGS: CHEST: Tracheobronchial tree: Patent where visualized. No evidence of bronchiectasis. Pulmonary parenchyma: No consolidation or dominant measurable mass. No architectural distortion. Pulmonary Arteries: No evidence of a pulmonary embolism. Mediastinum and Jessica: No dominant adenopathy or fluid collection. Visualized thyroid: Unremarkable. Pleura: No effusion or pneumothorax. Heart: There is cardiomegaly particularly involving the atria. There is no evidence of right heart strain. Coronary artery calcification is present. No pericardial effusion. Aorta: Thoracic aorta non-dilated. There is no evidence of dissection. Atherosclerotic calcification is present. Soft Tissues: Unremarkable. Bones: Within normal limits for the patient's age.There is a nonunited old right clavicular fracture. ABDOMEN AND PELVIS: Abdomen: Celiac axis/mesenteric arteries: No evidence of occlusion or significant stenosis. There is a patent stent in the proximal superior mesenteric artery. Renal Arteries: No evidence of occlusion or significant stenosis. Minimal atherosclerotic calcification is seen at the origin of the right renal artery. Aorta: No evidence of occlusion or significant stenosis. No aneurysm or dissection. Atherosclerotic calcification is present. Pelvis: Iliac Arteries: No evidence of occlusion or significant stenosis. Atherosclerotic calcification is present. Common Femoral Arteries: No evidence of occlusion or significant stenosis. Atherosclerotic calcification is present on the right. ABDOMEN: Liver: Normal density. No measurable mass. Gallbladder and Biliary Tract: No radiodense calculus or dilation. Pancreas: Normal density, no abnormal calcifications or inflammatory process. Spleen: Normal. Adrenals: No masses seen. Kidneys: Normal size, contour and axis. No radiodense stones or obstructive uropathy. No masses seen. Bowel: There is contrast seen in the colon which may reflect a recent radiology gastrointestinal examination. This does limit evaluation in the pelvis no obstruction or bowel wall thickening. No evidence of appendicitis. Peritoneal Cavity: No ascites, collection or mesenteric inflammatory response. No free air. Lymph Nodes: Within normal limits. Bones: Within normal limits for the patient's age. Soft Tissues: Unremarkable. PELVIS: Bladder: Symmetric distention, no gross wall thickening. Reproductive Organs: The uterus is not visualized. Lymph Nodes: Within normal limits. Bones: Within normal limits for the patient's age. IMPRESSION: 1. No evidence of a pulmonary embolism, thoracic aortic dissection or aneurysm. 2. No evidence of abdominal aortic dissection or aneurysm. 3. Acute pulmonary process. 4. No acute abdominal or pelvic process. Quality:[facility] Health Related Social Needs: No Data to Display [facility] All Active Problems (Updated 12/30/23 @ 15:20 by Dona Osullivan) Otalgia, right ear (Acute) Acute otitis media of right ear with perforated tympanic membrane (Acute) Non-ST elevation IN (NSTEMI) (Acute) Chronic kidney disease, stage III (moderate) (Acute) Hypermagnesemia (Acute) Acute hypokalemia (Acute) Ground glass opacity present on imaging of lung (Acute) Elevated troponin (Acute) CATIE (acute kidney injury) (Acute) Restrictive lung disease secondary to obesity (Acute) Allergic asthma (Acute) intermittent, controlled Dyspnea (Acute) Diarrhea (Acute) Congestive heart failure (Chronic) Sick euthyroidism (Acute) Carpal tunnel syndrome (Acute) GERD (gastroesophageal reflux disease) (Chronic) Bilateral renal artery stenosis (Acute) Encounter for weight loss counseling (Acute) Pulmonary emboli (Chronic) Arthritis of carpometacarpal (CMC) joint of left thumb (Acute) Avulsion fracture of right talus (Acute 12/30/21) Bilateral carpal tunnel syndrome (Acute) Paresthesia of hand, bilateral (Acute) Abnormal chest CT (Acute) Pulmonary hypertension (Acute) Atypical chest pain (Acute) PSVT (paroxysmal supraventricular tachycardia) (Acute) Acute non-ST elevation myocardial infarction (NSTEMI) (Acute) Elevated troponin I level (Acute) Right upper quadrant abdominal pain (Acute) Chronic heart failure with preserved ejection fraction (Chronic) Restless legs syndrome (Acute) Rhinitis, nonallergic, chronic (Acute) Tendinitis (Acute) Chest pain (Acute) Migraine headache without aura (Acute) Lichen sclerosus (Acute) MARYLOU (obstructive sleep apnea) (Chronic) Migraine with aura and without status migrainosus, not intractable (Acute 02/24/16) Medical History Myocardial infarction 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 Mild intermittent asthma Atherosclerosis of renal artery Heart failure Supraventricular tachycardia Atrial fibrillation Superior mesenteric artery stenosis (~03/10/22) see CTA abdomen and pelivs: 80% narrowing of SMA origin Renal artery stenosis (~03/10/22) right renal artery stenosis per CTA abomen/pelvis Hx of supraventricular tachycardia Infiltrate of lower lobe of left lung present on imaging study Acute non-ST elevation myocardial infarction (NSTEMI) COVID-19 Left lateral epicondylitis Arthritis of carpometacarpal (CMC) joint of left thumb Left wrist pain CHI (closed head injury) Acute bronchitis Non-ST elevation IN (NSTEMI) Insomnia Asthma Migraine Overweight Endometriosis Depression Surgical History History of radiofrequency ablation (RFA) procedure for cardiac arrhythmia Hx of tubal ligation History of partial hysterectomy Family History Daughter Migraines Mother Hypertension Father Heart disease Social History Smoking/Tobacco Use Status: Never Smoking risk assessment performed?: Yes Alcohol Intake: never Drug use: Never Substance use type: does not use Housing: house Current gender identity: female Do you feel safe at home: Yes Do you feel safe in your relationship?: Yes Female Reproductive History Menstrual Menopause type: surgical History History 2 Para 2 Hx # Term Pregnancies Multiple births Hx # Pregnancies Ectopic pregnancies AB induced Hx Number of Living Children AB spontaneous
--- NOTE | 2023-12-30 12:45 | DI.CT_ITS ---
Exam(s) CT THORAX ABD/PEL CTA EXAM: CT THORAX ABD/PEL CTA CLINICAL HISTORY: RUQ pain radiating , h/o abdominal artery stenting. TECHNIQUE: Imaging Protocol: Axial CT angiography was performed with multi-slice acquisition and m ulti-planar and/or 3D reconstructions. Computer aided detection (CAD) was utilized. CONTRAST MATERIAL: Intravenous: Omnipaque 350 contrast volume:125 mL Oral: No COMPARISON: CT CT RENAL COLIC WO from 03/25/[address] CHEST PE CTA from 08/28/2023 FINDINGS: CHEST: Tracheobronchial tree: Patent where visualized. No evidence of bronchiectasis. Pulmonary parenchyma: No consolidation or dominant measurable mass. No architectural distortion. Pulmonary Arteries: No evidence of a pulmonary embolism. Mediastinum and Jessica: No dominant adenopathy or fluid collection. Visualized thyroid: Unremarkable. Pleura: No effusion or pneumothorax. Heart: There is cardiomegaly particularly involving the atria. There is no evidence of right heart s train. Coronary artery calcification is present. No pericardial effusion. Aorta: Thoracic aorta non-dilated. There is no evidence of dissection. Atherosclerotic calcification is present. Soft Tissues: Unremarkable. Bones: Within normal limits for the patient's age.There is a nonunited old right clavicular fracture. ABDOMEN AND PELVIS: Abdomen: Celiac axis/mesenteric arteries: No evidence of occlusion or significant stenosis. There is a patent stent in the proximal superior mesenteric artery. Renal Arteries: No evidence of occlusion or significant stenosis. Minimal atherosclerotic calcificat ion is seen at the origin of the right renal artery. Aorta: No evidence of occlusion or significant stenosis. No aneurysm or dissection. Atheroscleroti c calcification is present. Pelvis: Iliac Arteries: No evidence of occlusion or significant stenosis. Atherosclerotic calcification is present. Common Femoral Arteries: No evidence of occlusion or significant stenosis. Atherosclerotic calcific ation is present on the right. ABDOMEN: Liver: Normal density. No measurable mass. Gallbladder and Biliary Tract: No radiodense calculus or dilation. Pancreas: Normal density, no abnormal calcifications or inflammatory process. Spleen: Normal. Adrenals: No masses seen. Kidneys: Normal size, contour and axis. No radiodense stones or obstructive uropathy. No masses seen. Bowel: There is contrast seen in the colon which may reflect a recent radiology gastrointestinal exam ination. This does limit evaluation in the pelvis no obstruction or bowel wall thickening. No eviden ce of appendicitis. Peritoneal Cavity: No ascites, collection or mesenteric inflammatory response. No free air. Lymph Nodes: Within normal limits. Bones: Within normal limits for the patient's age. Soft Tissues: Unremarkable. PELVIS: Bladder: Symmetric distention, no gross wall thickening. Reproductive Organs: The uterus is not visualized. Lymph Nodes: Within normal limits. Bones: Within normal limits for the patient's age. IMPRESSION: 1. No evidence of a pulmonary embolism, thoracic aortic dissection or aneurysm. 2. No evidence of abdominal aortic dissection or aneurysm. 3. Acute pulmonary process. 4. No acute abdominal or pelvic process. RADIATION DOSE DELIVERED: 2,028.29mGy.cm Total DLP DATA REPOSITORY: All CT scans at this facility are submitted to the National Radiology Data Registry (NRDR) Dose Index Registry (DIR) with the [employer] (ACR). RADIATION OPTIMIZATION: All CT scans at this facility use at least one of these dose optimization te chniques: automated exposure control; mA and/or kV adjustment per patient size (includes targeted exa ms where dose is matched to clinical indication); or iterative reconstruction.
[2023-12-30 13:03] LABS: Abs Immature Grans 0.02 10^3/uL (0.0-0.06); Absolute Basophil Count 0.03 10^3/uL (0.0-0.2); Absolute Monocyte Count 0.41 10^3/uL (0.1-0.8); Absolute Neutrophil Count 3.22 10^3/uL (1.2-6.7); Basophils % 0.6 %; Eosinophils % 3.7 %; HCT 43.3 % (36.0-46.0); HGB 14.2 g/dL (11.2-15.7); Immature Grans % 0.4 %; Lymphocytes % 27.9 %; MCH 31.3 pg (27.0-33.0); MCHC 32.8 % (32.0-36.0); MCV 96 fL (80-95); MPV 10.5 fL (8.0-11.0); Monocytes % 7.6 %; Neutrophils % 59.8 %; Platelet Count 242 10^3/uL (130-400); RBC 4.53 10^6/uL (3.93-5.22); RDW 12.5 % (11.7-14.6); RDW-SD 43.9 fL; WBC 5.38 10^3/uL (4.4-10.8)
[2023-12-30] MEDS: Famotidine 20 MG/2 ML VIAL IVP (13:04)
[2023-12-30 13:34] LABS: Lipase 46 U/L (16-77)
[2023-12-30 13:43] LABS: ALT 24 U/L (14-59); AST 15 U/L (15-37); Albumin 3.4 g/dL (3.4-5.0); Alkaline Phosphatase 57 U/L (46-116); Anion Gap 9.2 mmol/L (3-11); BUN 19 mg/dL (7-18); Bilirubin, Total 0.33 mg/dL (0.2-1.0); CO2 22.8 mmol/L (21.0-32.0); CREATININE 1.5 mg/dL (0.55-1.02); Chloride 110 mmol/L (98-107); Estimated GFR 41.16 (mL/min/1.73m2); Glucose 114 mg/dL (74-106); Magnesium 2.4 mg/dL (1.8-2.4); Potassium 4.5 mmol/L (3.5-5.1); Sodium 142 mmol/L (136-145); Total Protein 7.2 g/dL (6.4-8.2)
[2023-12-30 13:47] LABS: Troponin I 290 ng/L (<or=51)
[2023-12-30 14:28] LABS: Troponin I 301 ng/L (<or=51)
[2023-12-30] MEDS: Normal Saline - Diluent 50 ML VIAL IJ (14:57)
[2023-12-30] MEDS: Omnipaque 350 MG/ML 500 ML BTL-Imaging package IJ (14:57)
[2023-12-30 15:56] LABS: Troponin I 276 ng/L (<or=51)
== END 2023-12-30 16:05 | disposition home or self-care (01) ==
PROVIDERS: Emergency Provider Nurse Practitioner Family; PCP Physician Assistant
DX: R10.11 Right upper quadrant pain (principal); N18.30 Chronic kidney disease, stage 3 unspecified; K21.9 Gastro-esophageal reflux disease without esophagitis
CPT/HCPCS: 71275; 80053; 83690; 93005; 96374; 99285; 74174; 83735; 84484; 85025; 93010; 99284

== ENCOUNTER 2024-01-24 12:22 | Inpatient (IN) | payer BC, SELFPAY ==
[2024-01-24] VITALS (81 sets, daily range): BP systolic 95–120; BP diastolic 30–73; PULSE 45–60; RESP 8–21; TEMP 36.4–36.8; O2SAT 92–99
--- NOTE | 2024-01-24 12:15 | RT.EKG_ITS ---
APPROVED REPORT Exam: Resting ECG Reason for Exam: chest pain Patient Location: E HR:54 bpm ECG Measurements Heart Rate 54 AXIS FL 203 P 28 QRSd 101 QRS 52 QT 513 T 85 QTc 487 Conclusion Sinus bradycardia...rate< 60 Borderline prolonged FL interval...FL >202, V-rate 50- 90 Consider anterolateral infarct...Q >30mS, I aVL V3-V6,I,aVL Minimal ST depression, diffuse leads...ST <-0.03mV, ant/lat/inf Sinus bradycardia rate of 54 with interventricular conduction delay and first-degree AV block. Eva l axis. QTc within normal limits. Mild diffuse ST segment depressions. Compared to prior dated las t month ST segment depressions are persistent.
--- OUTSIDE RECORDS SUMMARY | 2024-01-24 12:28 | XMS_ITS | Encounter Summary ---
Author Organization [facility] Address [address] [place] [address] Care Team Providers Care Territory Representative Name Role Phone Unknown, Provider Primary Care Provider Unava ilable Encounter Details Date Type Department Care Team (Late st Contact Info) Description 05/18/2020 Lab Requisition [facility] Pathology & Laboratory Medicine - [facility] [address], [place] [address] Outr Resulting Lab, Provider Social History Tobacco Use Types Packs/Day Years Used Date Smoking Tobacco: Never Assessed Comments Unknown Sex and Gender Information Value Date Recorded Sex Assigned at Not on file Legal Sex Female 18:24 EST Gender Identity Not on file Sexual Orientation [...] 4th Generation Negative Negative 05/20/2020 11:35 EDT [facility] Comment: If acute HIV-1 infection is suspected in a high risk ??patient, submit plasma specimen for HIV-1 RNA quantitation test. Fourth Generation assay performed on the Siemens virocytaur. Blood VENOUS BLOOD / Unknown 05/17/2020 14:00 EST 05/19/2020 16:27 EDT us Provider Outr Resulting Lab IMMUNOLOGY AND SEROL OGY ORDERABLES Final Result [facility] [address] [place] [address] documented in this encounter Visit Diagnoses Not on filedocumented in this encounter Care Teams Territory Representative Relationship Specialty Start Date End Date Unknown, Provider, PCP - General 01/28/10 documented as of this encounter
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
--- OUTSIDE RECORDS SUMMARY | 2024-01-24 12:28 | XMS_ITS | Encounter Summary ---
Author Organization [facility] Address [address] [place] [id number] Care Team Providers Care Enrollment Nurse Name Role Phone Unknown, Provider Primary Care Provider Unava ilable Encounter Details Date Type Department Care Team (Late st Contact Info) Description 08/28/2019 Lab Requisition [facility] Pathology & Laboratory Medicine - [facility] [address] [place], [place] [id number] Outr Resulting Lab, Provider Social History Tobacco [...] Priority Date/Time Associated Diagnosis Comments ZZCOVID-19 TEST [facility] PCR Today 08/28/2019 21:50 EDT COVID-19 TESTING Routine 08/28/2019 21:5 0 EDT documented in this encounter Results * COVID-19 TEST [facility] PCR (08/28/2019 21:50 EDT) Swab ENTIRE NASOPHARYNX / Unknown 08/28/2019 21:50 EDT 08/29/2019 8:30 EDT us Provider Outr Resulting Lab MICROBIOLOGY - GENER AL ORDERABLES Final Result [facility] [address] [place] [address] * COVID-19 TESTING (08/28/2019 21:50 EDT) COVID-19 rt-PCR Result Negative Negative 08/29/2019 12:31 EDT [facility] Comment: This test [...] history, and epidemiological information. Performed on the [employer] Fusion instrument Performing Lab [place] [facility] 08/29/2019 12:31 EDT [facility] Swab 08/28/2019 21:5 0 EDT 08/29/2019 8:30 EDT us Provider Outr Resulting Lab MICROBIOLOGY - GENER AL ORDERABLES Final Result [facility] [address] [place] [address] documented in this encounter Visit Diagnoses Not on filedocumented in this encounter Care Teams Enrollment Nurse Relationship Specialty Start Date End Date Unknown, Provider, PCP - General 01/28/10 documented as of this encounter
--- OUTSIDE RECORDS SUMMARY | 2024-01-24 12:28 | XMS_ITS | Encounter Summary ---
Author Organization [facility] Address [address] [place] [address] Care Team Providers Care Turner Machine Operator Name Role Phone Unknown, Provider Primary Care Provider Unava ilable Encounter Details Date Type Department Care Team (Late st Contact Info) Description 07/27/[address] [facility] Pathology & Laboratory Medicine - [facility] [address] [place], [place] [id number] Outr Resulting Lab, Provider Social History Tobacco [...] Unknown 07/27/2022 10:39 EDT 07/27/2022 16:45 EDT us Provider Outr Resulting Lab IMMUNOLOGY AND SEROL OGY ORDERABLES Final Result [facility] [address] [place] [address] documented in this encounter Visit Diagnoses Not on filedocumented in this encounter Care Teams Turner Machine Operator Relationship Specialty Start Date End Date Unknown, Provider, PCP - General 01/28/10 documented as of this encounter
--- OUTSIDE RECORDS SUMMARY | 2024-01-24 12:28 | XMS_ITS | Encounter Summary ---
Author Organization [facility] Address [address] [place] [address] Care Team Providers Care Bottom Man Name Role Phone Unavailable Primary Care Provider Unavailabl e Encounter Details Date Type Department Care Team (Late st Contact Info) Description 01/02/2000 Results Only [facility] [place] [facility] [address] [place] [address] Channing Brand MD [address] [place] [address] Social History Tobacco Use Types [...] ? LOIDA ROQUE ? Accession #: ? [id number] : ? 1970 (Age: 29) ??F ?Collect [...] End of Report [facility] 01/02/2000 01/06/2000 us Channing Brand MD PATHOLOGY ORDERABLES Final Resul t [facility] [address] [place] [address] documented in this encounter Visit Diagnoses Not on filedocumented in this encounter
--- OUTSIDE RECORDS SUMMARY | 2024-01-24 12:28 | XMS_ITS | Encounter Summary ---
Author Organization [facility] [place] [address] Care Team Providers Care Music Engineer Name Role Phone Polo Pearce Primary Care Provider [phone] Encounter Details Date Type Department Care Team (Latest Contact Info) Description 01/12/2024 3:00 PM EST Office [place] [address] [place] [address] Gastroesophageal reflux disease, unspecified whether esophagitis present Social History Tobacco Use Types Packs/Day [...] any time in the past 12 m [facility], were you homeless or living in a [facility] (including now)? No 08/30/2023 IPV Inpatient Questions [...] Sign Reading Time Taken Comments Blood Pressure 110/61 01/12/2024 3:02 PM EST Pulse 58 01/12/2024 3:02 PM EST Temperature - - Respiratory Rate - - Oxygen Saturation - - Inhaled Oxygen Concentration - - Weight 100 kg (220 lb 8 oz) 01/12/2024 3:[address] Height 162.6 cm (5' 4) 01/12/2024 3:02 PM EST Body Mass Index 37.85 01/12/2024 3:02 PM EST documented in this encounter Patient Instructions * Patient Instructions* Mary Reyes APRN - 01/12/2024 3:00 PM EST Please call the GI department to schedule the investigations if you do not hear from us within 1 week: Clinic [phone] Motility Lab scheduling [phone] Endoscopy scheduling- [phone] Ms. Roque, It was good to see you. Plan is as follows: Recommendations: Diagnosis: Consider repeat Endoscopy with biopsies for EoE Obtain abd/pelvic CT from [facility] Repeat Colonoscopy in 10 years (07/2033) Therapeutics: GERD (Gastroesophageal reflux disease) LIFESTYLE CHANGES -Weight [...] under the mattress -Wear loose fitting clothing Other treatment for jackhammer esophagus with persistent symptoms include: An antispasmodic e.g. hyoscyamine 0.25 mg orally 3 times a day as needed has been associated with reduced esophageal contractility and lower esophageal sphincter pressure. OR Another option includes a short acting nitrate such as isosorbide dinitrate 5 to 10 mg orally 2 or 3 times daily. Possible side effects include headache, Generally starting at a low dose is best. Sometimes a calcium channel tiffanie can be used as an alternative. Given that patient has a cardiac history these options should be considered with both cardiology and PCP guidance. Will defer prescribing to PCP. Follow up with vascular surgery Consider referral to pain management Talk with PCP about GI symptoms on [facility] Floor [facility] We will proceed with increasing omeprazole to 40 mg daily. Patient should take 30 to 60 minutes before eating. F/U in 6 months. Thanks! Sander, ROM Functional Bowel Disorders: Information Handout for Patients and Primary Care Providers [facility]astro[facility] Motility[facility] Esophageal, [facility] Swallowing [facility] What are functional bowel disorders? These are the most common type of gastrointestinal disorders in the [place] The most common functional bowel disorder in the [place] is irritable bowel syndrome (IBS) Irritable bowel syndrome affects the lower GI tract and can cause bloating, abdominal pain, diarrhea, and constipation Functional dyspepsia (FD) affects the upper GI tract and can cause bloating, burping, heartburn, nausea, fullness and stomach discomfort In functional disorders the gut is structurally/anatomically normal but is not functioning properlydue to abnormalities in the enteric (gut) nervous system Two mechanisms - heightened sensitivity of the gut to normal sensations (sensory nerves) and abnormal gut motility (motor nerves) These disorders are caused by a combination of a genetic factors, changes to the gut microbiota (intestinal bacteria) and environmental triggers How common are these disorders and what is the impact? 15-20% of general [place] population has IBS or FD or both 2nd most common cause for lost work days (after common cold) in [place] Estimated $30 billion dollar cost to [place] economy per year These disorders can have a significant impact on quality of life How is the diagnosis made? The diagnosis of a functional disorder is NOT a ???diagnosis of exclusion?? (common misconception) Investigations may be necessary to look for other disorders (such as celiac disease) if the diagnosis is unclear Work-up may include history (description of symptoms), physical exam, bloodwork, stool studies, diagnostic imaging and endoscopy What is the prognosis? Functional bowel disorders are unfortunately chronic disorders and often have a major impact on patient quality of life, function, and relationships Symptoms may gradually resolve is a small proportion of patients (highest rate in patients with immediate onset of symptoms after infection); joint terminal attack controller symptoms are expected in most patients however Intermittent exacerbations (i.e. ???flares?? ) are common and may be caused by stress, infections, antibiotic exposure, and lack of adherence to treatment plans When should a patient be re-evaluated? Patients with stable symptoms do NOT need episodic re-evaluation Subtle changes in symptoms and symptom flares are common Patients should be re-evaluated if they have progression or dramatic changes in symptoms, severe abdominal pain, swallowing difficulties, unexplained weight loss, anemia (low blood counts), or bleeding If you have concerns be sure to talk to your doctor What are the goals of therapy? Ultimately we hope that you to able to achieve prolonged periods of stability with minimal daily symptoms and have a decrease in the frequency/severity of ???flares?? However, we believe the most important goal is to help you improve your overall quality of life. For most patients this means doing the things that are important in your life despite having symptoms. This is generally achieved by helping you develop coping skills and helping you achieve a greater understanding of your disorder. Remember, generally complete resolution of symptoms is NOT a realistic goal. How do I use this information? Talk to you primary care provider and/or local pastry baker and share this document. Treatment of functional disorders is a team effort! Set realistic goals! Remember it is unlikely that any one measure will completely eliminate all symptoms ???Start low and go slow?? with all measures to avoid potential side effects Do ONE measure at a time - add measures as needed in a ???step-ceron fashion?? - this will help determine if a particular measure is helpful or not Stay on any measure continuously for at least 4-6 weeks prior to assessing whether or not it is helping (improvements are often slow to occur) After an adequate trial ask yourself if the benefit is worth continuing the treatment Remember there are a limited number of treatment options available. We want to be absolutely sure that a measure is not effective or intolerable before stopping it and considering other options Often patients will need several ???layers?? or ???steps?? of therapy - finding the right combination for you takes time and patience We specifically recommend all patients to do ALL lifestyle and dietary measures AND try using Metamucil (or other psyllium fiber supplement) and probiotics together - this approach benefits most patients OTC (msqv-ivf-ttottpf) medications can be used for ongoing bothersome symptoms as listed below Your provider (PCP or local Gastroenterology provider or [facility] provider) may decide to use prescription medications if you have ongoing symptoms despite strict adherence to lifestyle and dietary measures and OTC medications Your provider will give you advice on treatments but it is your responsibility to work on these measures to improve your symptoms. Lack of adherence to recommendations is one of the most common causefor ongoing symptoms. If symptoms are controlled try easing back or stepping down on measures - remember the main goal isto improve quality of life (not necessarily eliminate symptoms). Non-Pharmacologic General Treatments Lifestyle measures Many lifestyle factors can worsen IBS symptoms However, IBS is not caused by these factors (common misconception) These lifestyle factors include the following: Inadequate sleep Weight gain Inadequate exercise Stress Depression/anxiety - this should be brought up to your Primary Care Provider (if left untreated it is unlikely the functional bowel disorder will improve) Dietary measures Trigger food avoidance - you should re-introduce foods once symptoms settle as overly restrictive diet can be unhealthy and even harmful Fatty foods, spicy foods, alcohol, and caffeine can worsen symptoms Consider a 2 week dairy-free trial for possible lactose-intolerance Your PCP or GI provider can refer you to a dietitian to discuss specialized diets. The overall dietary goal is to allow you to have a well-balanced and nutritious diet Fiber and Fluid Adequate fiber and fluid intake is essential for optimal functioning of the human digestive tract Aim for a fluid intake goal of 8-10 glasses of water a day (caffeine and alcohol count as minus onein calculation) Aim for a fiber intake goal of 30 grams per day - some patients may require more or less Increase fiber by 5 grams per week (remember ???start low and go slow?? ) Fiber can be from multiple dietary sources but supplemental is often helpful Fiber intake should include psyllium fiber; this is the type of fiber used in research studies for treatment of functional disorders Sources of psyllium include All-Bran psyllium buds, Metamucil, Konsyl, bulk psyllium (eMindful stores and MondeCafes stores) Specifically we recommend starting Metamucil or Konsyl at a low dosage - start at one teaspoon a day for one week then gradually increase by one teaspoon per week until no further benefit is achieved. Some patients may get bloating when they start a fiber supplement. This generally goes away after 1-2 weeks of daily therapy. Try backing off to a lower dose or trying an alternate version (such as sweetener-free Metamucil) If persistent issues try Citrucel (methylcellulose) as an alternate fiber supplement Probiotics Measures aimed at improving the microbiome such as probiotics are a promising area but convincing medical evidence is still lacking Sjrv-sbu-htscehr supplements including probiotics are not typically evaluated by FDA. The quality and even safety is often unclear and many products (despite being very expensive) actually do not contain any active ingredients at all! Live-culture yogurts, kombucha, sauerkraut and other dietary sources may help improve your microbiome Align, TuZen, and Visbiome are the three probiotics that are supported by medical research to have benefit for IBS Florastor has been shown to decrease antibiotic-associated diarrhea and post- infectious diarrhea BioK Plus has been shown to decrease antibiotic-associated diarrhea and antibiotic-related infections Ylae-eeb-Exvsapc Medications for Functional Gut Disorders Based on Symptoms Diarrhea Loperamide (Imodium) should be considered first for mild and intermittent symptoms - start with small doses and take several hours before needed (or even before bed) (it is generally considered safe for long-term use) Constipation Patients with mild constipation can use laxatives ???as needed?? (in other words, if you feel constipated or haven't had a regular bowel movement). However, patients with more severe constipation generally need laxatives on a regular schedule (every day or every second day for example). This is called ???maintenance therapy?? . PEG 3350 (Miralax) is a stool softener that is safe for snf usage (no risk of dependency) andthe dosage can be adjusted to achieve 1-2 soft bowel movements per day; you can take a capful (17g)twice daily if needed Milk of magnesia and lactulose are alternate stool softeners that are generally safe for regular use in most patients (you should ask your provider first). Bisacodyl (Dulcolax) and senna (Senokot) are stimulant laxatives for occasional use only as they may lead to dependency with regular long-term use. Enemas and bowel preparations (e.g. Colyte or Golytely) can be used to treat severe stool impaction---- this is called ???rescue therapy?? . Drink 2 litres in 4 hours in the evening then take another 2 litres over 4 hours the next morning. Another option is to mix up 14 capfuls of Miralax with 64 oz of Gatorade. After rescue therapy immediately begin aggressive ???maintenance therapy?? with the therapies above. Bloating/Pain Ensure constipation adequately treated - impacted stool can create a partial obstruction and contribute to pain Peppermint oil may also be useful; a capsule form exists as well (IBgard) Simethicone (Gas-X) can be helpful for occasional usage for ???gas spasms?? Acetominophen (Tylenol) is safest analgesic (pain killer) on the gut NSAIDs (e.g. ibuprofen) can cause gut irritation/inflammation - it's best to avoid or use in low doses only Medical cannabis has been used to treat various chronic pain disorders; it has been reported to benefit some patients with pain but has not be rigorously studied and may actually worsen symptoms in some patients with functional disorders. At this point we generally do NOT recommend using medical cannabis to treat functional disorders AVOID narcotics/opioids as they typically make symptoms much worse and there is a risk of addictionand/or dependence Exercise, hot-water bottle/heating pad, warm bath/shower, and warm beverages are also good treatments for painful bloating episodes Heartburn/Nausea/Vomiting/Dyspepsia Acid reducing medications such as proton-pump inhibitors (PPIs) and H2 blockers may be helpful especially if you have gastroesophageal reflux disease (GERD) Often a combination of anti-nausea medications (krwu-fnc-elqawxl or prescription) works better thanhigh doses of only one medication A herbal product called STW5 (Iberogast) is supported by some studies to help dyspepsia but data onlong-term effectiveness and safety is limited L-carnitine and coenzyme Q10 supplements have been reported to be beneficial to some patients with chronic nausea and vomiting If using cannabis (recreational or medical) consider stopping for at least two weeks (ideally a full month). While cannabis has been reported to help some patients with nausea it may actually be contributing to symptoms. Disclaimer This information is intended for education purposes only It is not meant to replace direct patient-provider care All medications should be used under the supervision of a Gastroenterology provider or Primary CareProvider Authors are not liable for misuse/misinterpretation of this information Patient Resources [place] [employer] https://www.gastro.org/practice-guidance/hk-uqkcbgr-rrdhxu/ topic/ierkskymu-bknjk-kjqlanhz-ibs Badgut.org https://badgut.org/information-centre/r-h-pbhhgtxub-topics/ibs/ AboutIBS.org https://www.aboutibs.org/ Uptodate.com https://www.uptodate.com/contents/kegbnfuia-ufuew-kvrkhmtb-nviinm-uxd-yeedxi documented in this encounter Progress Notes * Mary Reyes APRN - 01/12/2024 3:00 PM EST Images from the original note were not included. Chief Complaint: Indira Roque is a 53 y[address] patient of Dr[address] 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 . Last clinic visit: 08/25/23 Assessment/Plan: Ms. Roque is a 53 y.o. [...] back, or any other locations- please go tothe local ED Continue to follow with vascular [...] discussed the collaborative care model of the [facility] GI motility program. The patient should continue [...] a local GI currently (if outside the [facility] area). Yearly or bi-yearly visits with a member of the motility team may be available for co- management purposes depending upon the specific circumstances of the patient's medical condition. RTC with me in 3 weeks after testing via telehealth. Interval laboratory studies, imaging, procedures and interventions: Relevant interval investigations and interventions were carefully reviewed. Of particular relevanceis the following: High resolution esophageal manometry 10/28/23 pH impedance testing on PPI therapy 10/28/23 Double Contrast Barium Esophagram 12/22/23 Gastric Emptying Study 10/21/23 Anorectal Manometry 10/29/23 Interval history: Patient notes esophageal dysphagia. This is occurring with foods (meats and breads), thicker liquids (certain soups), and bigger pills. She feels that these contents are getting stuck in her throat and upper chest. This is occurring daily. Patient reports heartburn and acid reflux every day. Patient reports it is worse with fatty foods, yogurt, and acidic foods. Patient notes no difference in symptoms with 20mg of omeprazole. She generally takes it 30-60 minutes before she has breakfast. Patient does note a lot of burping and increased flatulence. Patient notes when she burps she brings up stomach acid. Patient notes lower RLQ pain. Patient reports it is a constant pain. She is unsure what intensifies the pain. She notes at times the pain wakes her up. Patient notes nausea daily. Patient reports early satiety and post-prandial fullness. Patient notes improvement in bloating. Normal bowel pattern with 1 normal BM per day. No blood in stools or melena. Medication Trials: Medications: Outpatient Medications Prior to Visit Medication Sig Dispense Refill Wegovy 0.5 mg/0.5 mL Pen Injector INJECT 0.5 MG (ONE PEN) SUBCUTANEOUSLY ONCE WEEKLY metoproloL tartrate (Lopressor) 25 mg tablet Take 0.5 tablets by mouth daily. 30 tablet 5 metOLazone (Zaroxolyn) 2.5 mg tablet Take 1 tablet by mouth as needed (take daily for weight gain +increasing shortness of breath. take 30-60 minutes prior to a dose of torsemide). 30 tablet PRN torsemide (Demadex) 20 mg tablet Take 1 tablet by mouth daily. potassium chloride (Klor-Con, K-Tab) 20 mEq ER tablet Take 2 tablets by mouth 2 times daily. Ubrelvy 50 mg tablet TAKE ONE TABLET BY MOUTH ONCE A SINGLE DOSE , MAY REPEAT IN 2 HOURS AFTER FIRST DOSE IF NEEDED omeprazole (PriLOSEC) [address] capsule Take 1 capsule by mouth daily. 30 capsule 5 ranolazine ER (Ranexa) 1,000 mg ER 12 hr tablet Take 1 tablet by mouth 2 times daily. 180 tablet 3 atorvastatin (Lipitor) 40 mg tablet Take 1 tablet by mouth every evening. 90 tablet 3 nitroGLYcerin (Nitrostat) 0.[address] 1 tablet under the tongue every 5 minutes as needed for Chest pain. 90 tablet 12 apixaban (Eliquis) 5 mg tablet Take 1 tablet by mouth 2 times daily. 60 tablet 11 spironolactone (Aldactone) 25 mg tablet Take 1 tablet by mouth daily. 90 tablet 3 melatonin 10 mg capsule Take 10 mg by mouth nightly. empagliflozin (Jardiance) 10 mg Tablet Take 1 tablet by mouth daily. 90 tablet 1 rOPINIRole (Requip) 1 mg Tablet Take 2 mg by mouth 2 times daily. loratadine (Claritin) 10 mg Tablet Take 10 mg by mouth daily as needed. fluticasone propionate (FLONASE) 50 mcg/actuation [place], Suspension 1 spray by Each Nare route [...] Vascular Surgery (07/02/2023); Upper Gi Endoscopy, Biopsy (27715) (N/A, 07/07/2023); and Colonoscopy, Biopsy ([id number]) (N/A, 07/07/2023). ROS: See interval history. Physical Exam: N/A Interval laboratory studies, imaging, procedures and interventions: Relevant interval investigations and interventions were carefully reviewed. Of particular relevanceis the following: See above. Ms. Roque is a 53 y.o. patient with the following issues: #Esophageal Dysphagia #Jackhammer Esophagus Patient notes esophageal dysphagia. This is occurring with foods (meats and breads), thicker liquids (certain soups), and bigger pills. She feels that these contents are getting stuck in her throat and upper chest. This is occurring daily. Patient had an endoscopy in July that was unremarkable. Patient had high-resolution esophageal manometry which showed a hypercontractile or jackhammer esophagus. I recommended that she try sucking on to peppermint Altoids (red box only) prior to eating or drinking. This lowers the pressure/relaxes the lower esophageal sphincter. Patient does not like peppermint, and this does have the potential to make her acid reflux worse. We obtained a double contrast barium study which showed an unchanged small hiatal hernia, and normal esophageal motility without evidence of gastroesophageal reflux. Patient also had pH/impedance testing which showed borderline or inconclusive evidence for acid reflux on 20 mg of omeprazole daily. There was no symptoms associated with reflux, and no evidence of elevated reflux burden measured byimpedance. Given that acid reflux can play a role in esophageal dysmotility, we will proceed with increasing omeprazole to 40 mg daily. Patient should take 30 to 60 minutes before eating. Consider repeating endoscopy and obtaining biopsies for EOE. Other treatment for jackhammer esophagus with persistent symptoms include: An antispasmodic e.g. hyoscyamine 0.25 mg orally 3 times a day as needed has been associated with reduced esophageal contractility and lower esophageal sphincter pressure. OR Another option includes a short acting nitrate such as isosorbide dinitrate 5 to 10 mg orally 2 or 3 times daily. Possible side effects include headache, Generally starting at a low dose is best. Sometimes a calcium channel tiffanie can be used as an alternative. Given that patient has a cardiac history these options should be considered with both cardiology and PCP guidance. Will defer prescribing to PCP. #Heartburn and Acid Reflux Patient reports heartburn and acid reflux every day. Patient reports it is worse with fatty foods, yogurt, and acidic foods. Patient notes no difference in symptoms with 20mg of omeprazole. She generally takes it 30-60 minutes before she has breakfast. Patient does note a lot of burping and increased flatulence. Patient notes when she burps she brings up stomach acid. Will provide GERD lifestyle recommendations. Recent EGD was unremarkable. Patient also had pH/impedance testing which showed borderline or inconclusive evidence for acid reflux on 20 mg of omeprazole daily. There was no symptoms associated with reflux, and no evidence of elevated reflux burden measured byimpedance. We will proceed with increasing omeprazole to 40 mg daily. Patient should take 30 to 60 minutes before eating. #Nausea #Early Satiety #Dyspepsia Symptoms Patient notes nausea daily. Patient reports early satiety and post-prandial fullness. Strick emptying study unremarkable. We talked about some of the symptoms being a side effect of Wegovy. Instructed patient to discuss with PCP these symptoms as PCP prescribes Wegovy, #Bloated with eating Patient notes improvement in bloating. #Altered Bowel Pattern Normal bowel pattern with 1 normal BM per day. No blood in stools or melena. Patient had a colonoscopy that was consistent with melanosis, which is consistent with her laxativeuse. Biopsies unremarkable. Patient was using stool softener with laxatives. Repeat Colonoscopy recommended in 10 year (07/2033) We obtained anorectal manometry which showed dyssynergic defecation. Patient was referred to pelvic floor physical therapy at [place] per patient preference. Patient has not yet heard from therapy. Will confirm that referral has been sent. TSH and Celiac Panel unremarkable. #S/P SMA sent #RLQ Pain Patient notes lower RLQ pain. Patient reports it is a constant pain. She is unsure what intensifies the pain. She notes at times the pain wakes her up. Patient recently had an abdominal/pelvic CT at [facility]. Will request the results. Patient should also continue to follow-up with vascular s/p SMA stent Can consider a referral to pain management. Recommendations: Diagnosis: Consider repeat Endoscopy with biopsies for EoE Obtain abd/pelvic CT from [facility] Repeat Colonoscopy in 10 years (07/2033) Therapeutics: GERD (Gastroesophageal reflux disease) LIFESTYLE CHANGES -Weight [...] under the mattress -Wear loose fitting clothing Other treatment for jackhammer esophagus with persistent symptoms include: An antispasmodic e.g. hyoscyamine 0.25 mg orally 3 times a day as needed has been associated with reduced esophageal contractility and lower esophageal sphincter pressure. OR Another option includes a short acting nitrate such as isosorbide dinitrate 5 to 10 mg orally 2 or 3 times daily. Possible side effects include headache, Generally starting at a low dose is best. Sometimes a calcium channel tiffanie can be used as an alternative. Given that patient has a cardiac history these options should be considered with both cardiology and PCP guidance. Will defer prescribing to PCP. Follow up with vascular surgery Consider referral to pain management Talk with PCP about GI symptoms on [facility] Pelvic Floor PT- [facility] We will proceed with increasing omeprazole to 40 mg daily. Patient should take 30 to 60 minutes before eating. Counselling and Coordinating Care: Time spent reviewing records prior to this encounter on day of appointment: 0 minutes Time spent during encounter with patient including counselin minutes Time spent documenting encounter after office visit: 15 minutes [place] [address] Copy: [address] / [facility] [id number] Please note: Voice recognition technology was utilized to dictate this note. Although I do my best to review notes, minor errors in dictation may be present. documented in this encounter Plan of Treatment Upcoming Encounters Date Type Department Care Team (Late st Contact Info) Description 02/10/2024 1:00 PM EST Office Visit Cardiology at [address] [place] [address] Jaspreet Kinsey MD [facility] [place] [address] documented as of this encounter Visit Diagnoses Diagnosis Gastroesophageal reflux disease, unspecified whether esophagitis present documented in this encounter Care Teams Music Engineer Relationship Specialty Start Date End Date Polo Pearce PA [address] [place] [address] PCP - General Internal Medicine 06/09/21 documented as of this encounter
--- OUTSIDE RECORDS SUMMARY | 2024-01-24 12:28 | XMS_ITS | Encounter Summary ---
Author Organization [facility] [place] [address] Care Team Providers Care Cosmetics Counter Manager Name Role Phone Polo Pearce Primary Care Provider [phone] Reason for Referral * Diagnostic Test (Routine) - Closed Specialty Diagnoses / Procedures Referred By Jayant harris Referred To Contact Radiology Diagnoses Esophageal dysphagia Jackhammer esophagus Procedures XR Fluoro Esophagram (Double Contrast) [place] [address] [facility] Xray [address] [place] [address] [place] [address] Referral ID Status Reason Start Date Expiration Date V isits Requested Visits Authorized [id number] Closed Specialty Service Requested 12/06/2023 06/04/2025 1 1 Reason for Visit * Diagnostic Test (Routine) - Closed Specialty Diagnoses / Procedures Referred By Jayant harris Referred To Contact Radiology Diagnoses Esophageal dysphagia Jackhammer esophagus Procedures XR Fluoro Esophagram (Double Contrast) [place] [address] [facility] Rad Xray [address] [place] [address] [place] [address] Referral ID Status Reason Start Date Expiration Date V isits Requested Visits Authorized [id number] Closed Specialty Service Requested 12/06/2023 06/04/2025 1 1 Encounter Details Date Type Department Care Team (Latest Contact Info) Description 12/22/2023 7:38 AM EDT - 12/22/2023 11:59 PM EDT Hospital Encounter XRay at [address] [place] [address] [place] [address] Esophageal dysphagia; Jackhammer esophagus Discharge Disposition: Home Social History Tobacco Use Types Packs/Day Years Used Date Smoking Tobacco: Never Smokeless Tobacco: Never Alcohol Use Standard Drinks/Week Comments Never 0 (1 standard drink = 0.6 oz pur e alcohol) [facility] Utilities Answer Date Recorded In the past 12 months has th e [employer], gas, oil, or water [employer] threatened to shut off services in your [...] Sig Dispensed Refills Start Date End Date Wegovy 0.5 mg/0.5 mL Pen Injector INJECT 0.5 MG (ONE PEN) SUBCUTANEOUSLY ONCE WEEKLY 11/15/2023 metoproloL tartrate (Lopressor) 25 mg tabletIndications:PA F (paroxysmal atrial fibrillation) Take 0.5 tablets by mouth daily. 30 tablet 5 11/22/2023 metOLazone (Zaroxolyn) 2.5 mg tablet Take 1 tablet by mouth as needed (take daily for weight gain + increasing shortness of breath. take 30-60 minutes prior to a dose of torsemide). 30 tablet 10/28/2023 torsemide (Demadex) 20 mg tabletIndications:He art failure with preserved ejection fraction, unspecified HF chronicity Take 1 tablet by mouth daily. 10/28/2023 potassium chloride (Klor-Con, K-Tab) 20 mEq ER tablet Take 2 tablets by mouth 2 times daily. 10/06/2023 Ubrelvy 50 mg tablet TAKE ONE TABLET BY MOUTH ONCE A SINGLE DOSE , MAY REPEAT IN 2 HOURS AFTER FIRST DOSE IF NEEDED 09/30/2023 ranolazine ER (Ranexa) 1,000 mg ER 12 hr tablet Take 1 tablet by mouth 2 times daily. 180 tablet 3 07/26/2023 atorvastatin (Lipitor) 40 mg tablet Take 1 tablet by mouth every evening. 90 tablet 3 07/09/2023 nitroGLYcerin (Nitrostat) 0.[address] [...] by mouth nightly. empagliflozin (Jardiance) 10 mg TabletIndications:Ch ronic heart failure with preserved ejection fraction Take 1 tablet by mouth daily. 90 tablet 1 06/11/2021 rOPINIRole (Requip) 1 mg Tablet Take 2 mg by mouth 2 times daily. 07/16/2020 loratadine (Claritin) 10 mg Tablet Take 10 mg by mouth daily as needed. fluticasone propionate (FLONASE) 50 mcg/actuation [place], Suspension 1 spray by Each Nare [...] 4 hours as needed. Use with spacer omeprazole (PriLOSEC) 20 mg capsuleIndications:G astroesophageal reflux disease, unspecified whether esophagitis present Take 1 capsule by mouth daily. 30 capsule 5 08/25/2023 01/12/2024 documented as of this encounter Plan of Treatment Upcoming Encounters Date Type Department Care Team (Late st Contact Info) Description 02/10/2024 1:00 PM EST Office Visit Cardiology at [address] [place] [address] Jaspreet Kinsey MD [facility] [place] [address] documented as of this encounter Procedures Procedure Name Priority Date/Time Associated Diagnosis Comments XR FLUORO BARIUM SWALLOW (DOUBLE CONTRAST) Routine 12/22/2023 8:18 AM EDT Esophageal dysphagia Jackhammer esophagus documented in this encounter Results * XR Fluoro Esophagram (Double Contrast) (12/22/2023 8:18 AM EDT) WORKSTATION ID [id number] RAD Anatomical Region Laterality Modality N/A Radio Fluoroscop y Impressions 12/22/2023 9:51 AM EDT 1. ??Unchanged small hiatal hernia. 2. ??Normal esophageal motility without evidence of gastroesophageal reflux. I have personally reviewed the image(s) and the resident's interpretation and agree with the findings, LUZ ALEXANDRA MD at 12/22/2023 9:51 AM Thank you for letting us participate in the care of this patient. ??If you are a health care provider and have any questions regarding this report, please contact the number below. ??For patients who have questions please contact the health home care music therapist that requested your imaging first. ? Narrative 12/22/2023 9:51 AM EDT EXAMINATION: XR FLUORO ESOPHAGRAM (DOUBLE CONTRAST) CLINICAL HISTORY: esophageal dysphagia, jackhammer esophaguse on HREM R13.19, Other dysphagia - K22.4, Dyskinesia of esophagus TECHNIQUE: Double contrast esophagram was performed. Fluoroscopic spot films were obtained. A 13 mm barium tablet was administered. Fluoro time: 48 seconds COMPARISON: CT abdomen and pelvis 09/05/2023, CT chest 04/16/2023, chest radiograph 05/02/2021 FINDINGS: It Application Development Manager image: The cardiomediastinal contours, satish, and pulmonary vasculature are normal.The lungs are clear. No pneumothorax or pleural effusion. Multiple loops of nondilated, partially air-filled small and large bowel are present throughout the upper abdomen. No acute osseous abnormalities. Chronic right midclavicular fracture. No acute osseous abnormalities. Barium swallow: The esophagus is normal in course and caliber, and is well distended on double contrast views. ??The mucosal pattern is normal. Similar to CT abdomen and pelvis dated 09/05/2023 there is a similar small hiatal hernia. Esophageal peristalsis is normal. No gastroesophageal reflux was elicited with provocative maneuvers. A 13 mm barium tablet passed promptly into the stomach, without delay. Procedure Note Luz Alexandra MD - 12/22/2023 EXAMINATION: XR FLUORO ESOPHAGRAM (DOUBLE CONTRAST) CLINICAL HISTORY: esophageal dysphagia, jackhammer esophaguse on HREM R13.19, Other dysphagia - K22.4, Dyskinesia of esophagus TECHNIQUE: Double contrast esophagram was performed. Fluoroscopic spot films wereobtained. A 13 mm barium tablet was administered. Fluoro time: 48 seconds COMPARISON: CT abdomen and pelvis 09/05/2023, CT chest 04/16/2023, chest radiograph05/02/2021 FINDINGS: It Application Development Manager image: The cardiomediastinal contours, satish, and pulmonary vasculature arenormal.The lungs are clear. No pneumothorax or pleural effusion. Multiple loops of nondilated, partially air-filled small and large bowel are presentthroughout the upper abdomen. No acute osseous abnormalities. Chronic right midclavicular fracture. Noacute osseous abnormalities. Barium swallow: The esophagus is normal in course and caliber, and is well distended ondouble contrast views. The mucosal pattern is normal. Similar to CT abdomen and pelvis dated 09/05/2023 there is a similar smallhiatal hernia. Esophageal peristalsis is normal. No gastroesophageal reflux was elicited with provocative maneuvers. A 13 mm barium tablet passed promptly into the stomach, without delay. IMPRESSION 1. Unchanged small hiatal hernia. 2. Normal esophageal motility without evidence of gastroesophagealreflux. I have personally reviewed the image(s) and the resident's interpretationand agree with the findings, LUZ ALEXANDRA MD at 12/22/2023 9:51 AM Thank you for letting us participate in the care of this patient. If youare a health care provider and have any questions regarding this report,please contact the number below. For patients who have questions please contactthe health home care music therapist that requested your imaging first. Mary Reyes [employer]IL [employer] IMG FLUORO ORDERAB LES documented in this encounter Visit Diagnoses Diagnosis Esophageal dysphagia Dysphagia, pharyngoesophageal phase Jackhammer esophagus documented in this encounter Administered Medications Inactive Administered Medications - up to 3 most recent administrations Medication Order MAR Action Action Date Dose Rate Site barium sulfate (E-Z Disk) tablet 0-700 mg 0-700 mg, Oral, ONCE PRN, 1 dose, Starting on Wed12/22/23 at 0812, Until Wed12/22/23 at 0809, Per Protocol, Radiology Contrast, Routine Given 12/22/2023 8:09 AM EDT 700 mg barium sulfate (E-Z-HD) 98% oral liquid 0-120 mL 0-120 mL, Oral, ONCE PRN, 1 dose, Starting on Wed12/22/23 at 0812, Until Wed12/22/23 at 0809, Per Protocol, Radiology Contrast, Routine Given 12/22/2023 8:09 AM EDT 80 mLs barium sulfate (Ezpaque) 60% (w/v) oral liquid 0-710 mL 0-710 mL, Oral, ONCE PRN, 1 dose, Starting on Wed12/22/23 at 0812, Until Wed12/22/23 at 0809, Per Protocol, Radiology Contrast, Routine Given 12/22/2023 8:09 AM EDT 100 mLs documented in this encounter Care Teams Cosmetics Counter Manager Relationship Specialty Start Date End Date Polo Pearce PA [address] [place] [address] PCP - General Internal Medicine 06/09/21 documented as of this encounter
--- OUTSIDE RECORDS SUMMARY | 2024-01-24 12:28 | XMS_ITS | Encounter Summary ---
Author Organization [facility] Address [address] [place] [address] Care Team Providers Care Quality Assurance Nurse Name Role Phone Unavailable Primary Care Provider Unavailabl e Encounter Details Date Type Department Care Team (Late st Contact Info) Description 01/19/2000 Results Only [facility] conversion [address] [place] [address] Channing Brand MD [address] [place] [address] Social History Tobacco Use Types [...] ? LOIDA ROQUE ? Accession #: ? [id number] ? : ? 1970 (Age: 29) ??F ? Collect Date: ? 01/19/2000 ? Location: ? [facility] ? Receive Date: ? 01/20/2000 ? Provider: CHANNING BRAND MD Copy to: ANGELY MYERSFA CHITRA JOHN ? Final Pathologic Diagnosis: A. ?Pelvic sidewall, left, biopsy: 1. 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 B. ?Uterus and cervix, hysterectomy: 1. ?Endometrium: ? - Secretory endometrium. 2. ?Myometrium: ? - No pathologic features. 3. ?Serosa: ? - No pathologic features. 4. ?Cervix: ? - Chronic and acute cervicitis. Document reviewed and electronically signed by: Gerald Nino [facility] Report ??Date: 01/22/2000 16:44 By [...] a discernible squamocolumnar junction. BLOCK RHODES B1,B2 ?Die Out Worker section of anterior endomyometrium B3 ?Possible myomatous nodule from the anterior half of the specimen B4 ?Die Out Worker section of posterior endomyometrium B5 ?Die Out Worker section of posterior endo- and ectocervix B6 ?Anterior endo- and ectocervix (Dr. Garcia)/[facility] End of Report [facility] 01/19/2000 01/20/2000 14: 59 EST us Channing Brand MD PATHOLOGY ORDERABLES Final Resul t [facility] [address] [place] [address] documented in this encounter Visit Diagnoses Not on filedocumented in this encounter
--- OUTSIDE RECORDS SUMMARY | 2024-01-24 12:28 | XMS_ITS | Clinical Summary ---
[facility] [place] [address] Care Team Providers Care Behavioral Consultant Name Role Phone Polo Pearce Primary Care Provider [phone] Allergies Active Allergy Reactions Criticality Noted Date [...] spacer Active fluticasone propionate (FLONASE) 50 mcg/actuation [place], Suspension 1 spray by Each Nare route [...] as needed. Active empagliflozin (Jardiance) 10 mg TabletIndications :Chronic heart failure with preserved ejection fraction Take 1 tablet by mouth daily. 90 tablet 1 06/11/2021 Active melatonin 10 mg capsule Take 10 mg by mouth nightly. Active spironolactone (Aldactone) 25 mg tablet Take 1 tablet by mouth daily. 90 tablet 3 02/12/2023 Active apixaban (Eliquis) 5 mg tablet Take 1 tablet by mouth 2 times daily. 60 tablet 11 04/04/2023 Active nitroGLYcerin (Nitrostat) 0.[address] 1 tablet under the tongue every 5 minutes as needed for Chest pain. 90 tablet 12 04/22/2023 Active atorvastatin (Lipitor) 40 mg tablet Take 1 tablet by mouth every evening. 90 tablet 3 07/09/2023 Active ranolazine ER (Ranexa) 1,000 mg ER 12 hr tablet Take 1 tablet by mouth 2 times daily. 180 tablet 3 07/26/2023 Active potassium chloride (Klor-Con, K-Tab) 20 mEq ER tablet Take 2 tablets by mouth 2 times daily. 10/06/2023 Active Ubrelvy 50 mg tablet TAKE ONE TABLET BY MOUTH ONCE A SINGLE DOSE , MAY REPEAT IN 2 HOURS AFTER FIRST DOSE IF NEEDED 09/30/2023 Active metOLazone (Zaroxolyn) 2.5 mg tablet Take 1 tablet by mouth as needed (take daily for weight gain + increasing shortness of breath. take 30-60 minutes prior to a dose of torsemide). 30 tablet 10/28/2023 Active torsemide (Demadex) 20 mg tabletIndications :Heart failure with preserved ejection fraction, unspecified HF chronicity Take 1 tablet by mouth daily. 10/28/2023 Active Wegovy 0.5 mg/0.5 mL Pen Injector INJECT 0.5 MG (ONE PEN) SUBCUTANEOUSLY ONCE WEEKLY 11/15/2023 Active metoproloL tartrate (Lopressor) 25 mg tabletIndications :PAF (paroxysmal atrial fibrillation) Take 0.5 tablets by mouth daily. 30 tablet 5 11/22/2023 Active omeprazole (PriLOSEC) [address] capsuleIndication s:Gastroesophagea l reflux disease, unspecified whether esophagitis present Take 1 capsule by mouth daily. 30 capsule 11 01/12/2024 Active Active Problems Problem Noted Date Diagnosed Date Endometriosis 03/18/2023 Stenosis of left carotid artery greater than 50% 03/18/2023 Restrictive lung disease secondary to obesity Paresthesia of hand, bilateral 03/18/2023 Paroxysmal atrial fibrillation 10/22/2022 Overview (11/17/2022): 10/20/2022: diagnosed in clinic (see EKG on same date) with c/o chest pain Assessment & Plan (10/28/2023 5:22 PM EDT): Remains in NSR - Strategy: paroxysmal rate. Continue not on avnb - OAC: eliquis 5 bid (this is more so for history of PE) - Reversible Causes: obesity Assessment & Plan (07/29/2023 9:54 AM EDT): [...] already placed for discussion of svt ablation Obesity 06/07/2021 Dyslipidemia 06/07/2021 Obstructive sleep apnea syndrome 04/29/2020 Insomnia 04/29/2020 (HFpEF) heart failure with preserved ejection fr action 04/29/2020 Overview (10/28/2023): 05/2021: subacute, presented to [facility] with RUQ pain, weight gain, and progressive [...] sarcoid. Anterior scar pattern 06/2023: Admission at [facility] ([facility]). TTE with low-normal EF, though anterior HK resolved 08/2023 ([facility]): preserved EF, anterior HK is back Assessment & Plan (10/28/2023 5:33 PM EDT): No failure by history/exam. Remain rather uncertain about exact pathophysiology/pathoanatomy that has led to the multiple presentations. Reviewed that if episodes return, can consider referral to quaternary centre such as [facility]. I spent a fair duration re-reviewing the chart for possible further clues/insights, given this perplexing case. To a fair extent, it seems her presentations with severe chest pain are at a similar time within a calendar month. She has a history of endometriosis (which she is s/p hysterectomy for). A metastasis of the endometriosis to the myocardium is an intriguing hypothesis, especially since cardiac diagnostics have demonstrated a significant anterior mid-myocardial infarct pattern (which would suggest an infiltrative process) while sarcoid and amyloid have been ruled out. Certainly this would be an n=1 case (while there have been reports of thoracic endometriosis, I cannot find a myocardial case) and thus admittedly highly unlikely, I think the possibility should still be entertained. Will ask log carrier operator contacts/colleagues regarding this prospect - torsemide 20 QD (presented with prerenal azotemia on 40 BID) - metolazone 2.5 QD PRN weight gain + increasing dyspnea - Jardiance 10 - aldactone 25 Assessment & Plan (07/29/2023 9:54 AM EDT): [...] to the clare Mcdaniels of [facility] expertise IN the meantime, increase torsemide [...] discharge summary and medication administration record from [facility] to see what was given to her [...] Date NSTEMI (non-ST elevated myoc ardial infarction) 08/28/2023 10/28/2023 NSTEMI (non-ST elevated myoc ardial infarction) 06/15/2023 [...] (non-ST elevated myoc ardial infarction) 12/30/2021 03/16/2022 Chest pain 06/13/2021 10/28/2023 Assessment & Plan (07/29/2023 9:57 AM EDT): [...] 1g bid - toprol 12.5 (max tolerated) Pulmonary hypertension, mild 06/09/2021 07/23/2021 Elevated blood pressure read ing without diagnosis of hypertension 06/07/2021 07/23/2021 Non-ST elevation MS (NSTEMI) 08/29/2019 03/16/2022 Rhinitis, nonallergic, chronic 06/26/2010 07/30/2022 Encounters Date Type Department Care Team Description 01/12/2024 3:00 PM EST Office Visit Gastroenterology at [facility] [place] [place] [address] Mary Reyes, TAP GRINDER Gastroesophageal reflux disease, unspecified whether esophagitis present 01/12/2024 Travel 12/22/2023 7:38 AM EDT - 12/22/2023 11:59 PM EDT Hospital Encounter XRay at [address] [place] [address] Mary Reyes APRN Esophageal dysphagia; Jackhammer esophagus Discharge Disposition: Home 12/22/2023 Travel 12/13/2023 10:00 AM EDT Clinical Support [place] [address] Gastroesophageal reflux disease, unspecified whether esophagitis present 12/13/2023 Travel 11/29/2023 1:00 PM EDT Office [place] [address] Selene Browning, PhD Moderate episode of recurrent major depressive disorder; Trauma and stressor-related disorder 11/29/2023 Travel 11/22/2023 4:40 PM EDT Office Visit Cardiology at [address] [address] Porsha Mcdaniels MD PAF (paroxysmal atrial fibrillation) 11/22/2023 Travel 11/02/2023 Orders [place] [address] Dustin Arce MD Dyssynergic defecation 11/02/2023 Telephone [place] [address] Lana Gonzales RN 10/29/2023 10:15 AM EDT Procedure [place] [address] Altered bowel function 10/29/2023 10:00 AM EDT Clinical [place] [address] Gastroesophageal reflux disease, unspecified whether esophagitis present 10/28/2023 9:00 AM EDT Office [place] [address] Gastroesophageal reflux disease, unspecified whether esophagitis present; Esophageal dysphagia; Jackhammer esophagus 10/28/2023 Travel 10/26/2023 4:00 PM EDT Office Visit Cardiology at [address] [phone] Jaspreet Kinsey MD Heart failure with preserved ejection fraction, unspecified HF chronicity; Paroxysmal atrial fibrillation 10/26/2023 Travel from Last 3 Months Family History [...] any time in the past 12 m [facility], were you homeless or [...] Pulse 58 01/12/2024 3:02 PM EST Temperature 37.1 ??C (98.8 ??F) 09/10/2023 12:09 PM E DT Respiratory Rate 18 09/10/2023 12:09 PM EDT Oxygen Saturation 97% 11/22/2023 4:35 PM EDT Inhaled Oxygen Concentration - - Weight 100 kg (220 lb 8 oz) 01/12/2024 3:[address] Height 162.6 cm (5' 4) 01/12/2024 3:02 PM EST Body Mass Index 37.85 01/12/2024 3:02 PM EST Plan of Treatment Upcoming Encounters Date Type Department Care Team (Late st Contact Info) Description 02/10/2024 1:00 PM EST Office Visit Cardiology at [address] [phone] Jaspreet Kinsey MD [facility] [place] [address] Health Maintenance Due Date Last Done Comments CT Colonography 1969 FIT DNA 1969 FIT 1969 Sigmoidoscopy 1969 Pneumococcal Vaccine: At-Ris k 5-64yrs (1 of 2 - PCV) 1975 HIV screen 1987 Hepatitis C Screening 1987 Hepatitis B vaccine (0-59 yr s) (1) 1988 Tetanus/Diphtheria/Pertussis Vaccines (1 - Tdap) 1988 HPV test 1999 PAP Smear 1999 Breast Cancer Share Decision Needed 2009 Breast Cancer screening 2009 Zoster vaccine (1 of 2) 2019 Covid-19 Vaccine (3 - 2023-2 5 season) 2023 04/03/2020, 03/06/2020 Influenza (Flu) vaccine (1 o f 1 - Influenza standard series) 11/07/2023 Diabetes Screening (HgbA1C o r Glucose) 09/09/2026 09/10/2023, 09/09/2023, 09/08/2023, Additional history exists Colonoscopy 07/06/2033 07/07/2023, 07/07/2023 Colorectal Cancer Screening 07/06/2033 Sigmoidoscopy (10 year) with FIT yearly 07/06/2033 07/07/2023, 07/07/2023 Lipid Screening Discontinued 08/28/2023, 06/06, 04/18/2023, Additional history exists Medical Devices Implanted Type Area Inbound Telemarketer Device Identifier Shelf Expiration Date Model / Serial / Lot Stent Graft [id number] cm [place] Viabahn Vbx ([id number]) (Autoreq)-06/07 Implanted:Qty : 1 on 07/02/[address] MD IMPLANTS Arterial [employer] - [employer] AN [id number] / / [id number] Description:sma stent placem ent Procedures Procedure Name Priority Date/Time Associated Diagnosis Comments XR FLUORO BARIUM SWALLOW (DOUBLE CONTRAST) Routine 12/22/2023 8:18 AM EDT Esophageal dysphagia Jackhammer esophagus BASIC METABOLIC PANEL Routine 09/10/2023 4:17 AM EDT LIPID PANEL (REFLEX DIRECT LDL) Routine 08/28/2023 9:07 PM EDT COLONOSCOPY Routine 07/07/2023 1:39 PM EDT from Last 3 Months or Most Recently Relevant to Health Maintenance Results * XR Fluoro Esophagram (Double Contrast) (12/22/2023 8:18 AM EDT) [employer] WORKSTATION ID [id number] RAD Anatomical Region Laterality Modality N/A Radio Fluoroscop y Impressions 12/22/2023 9:51 AM EDT 1. ??Unchanged small hiatal hernia. 2. ??Normal esophageal motility without evidence of gastroesophageal reflux. I have personally reviewed the image(s) and the resident's interpretation and agree with the findings, LUZ JACOBS MD at 12/22/2023 9:51 AM Thank you for letting us participate in the care of this patient. ??If you are a health care provider and have any questions regarding this report, please contact the number below. ??For patients who have questions please contact the health neonatal critical care nurse that requested your imaging first. [...] CT chest 04/16/2023, chest radiograph 05/02/2021 FINDINGS: Cnc Manager image: The cardiomediastinal contours, satish, and [...] the stomach, without delay. Procedure Note Luz Jacobs MD - 12/22/2023 EXAMINATION: XR FLUORO ESOPHAGRAM (DOUBLE CONTRAST) CLINICAL HISTORY: esophageal dysphagia, jackhammer esophaguse on HREM R13.19, Other dysphagia - K22.4, Dyskinesia of esophagus TECHNIQUE: Double contrast esophagram was performed. Fluoroscopic spot films wereobtained. A 13 mm barium tablet was administered. Fluoro time: 48 seconds COMPARISON: CT abdomen and pelvis 09/05/2023, CT chest 04/16/2023, chest radiograph05/02/2021 FINDINGS: Cnc Manager image: The cardiomediastinal contours, satish, and [...] resident's interpretationand agree with the findings, LUZ JACOBS MD at 12/22/2023 9:51 AM Thank you for letting us participate in the care of this patient. If youare a health care provider and have any questions regarding this report,please contact the number below. For patients who have questions please contactthe health neonatal critical care nurse that requested your imaging first. Mary Reyes TAP GRINDER IMG FLUORO ORDERAB LES * (ABNORMAL) Basic Metabolic Panel (non-fasting) (09/10/2023 4:17 AM EDT) Glucose 92 65 - 199 mg/dL [facility] [...] ES [facility] [place] [address] * Lipid Panel (Reflex Direct LDL) (08/28/2023 9:07 PM EDT) [facility] Signature Cholesterol, Total 203 mg/dL [facility] Comment: Desirable: ? <200 mg/dL Borderline High: 200-239 mg/dL Higher: ?>fp=671 mg/dL Triglyceride 146 mg/dL [facility] Comment: Normal: ?<150 mg/dL Borderline High: 150-199 mg/dL High: ?200-499 mg/dL Very High: ? >ql=845 mg/dL HDL Cholesterol 52 mg/dL [facility] Comment: Females: High Risk: <50 mg/dL Males: High Risk: <40 mg/dL LDL Cholesterol 122 mg/dL [facility] Comment: Desirable: ? <100 mg/dL Above Desirable: 100-129 mg/dL Borderline High: 130-159 mg/dL High: ?160-189 mg/dL Very High: ? >yi=205 mg/dL Lipid Interpretation See Note [facility] [...] individuals with atherosclerotic cardiovascular disease (ASCVD)or LDL >os=047 mg/dL, use a high-intensity statin (40-80 mg [...] Resulting Agency Comment Spec In Lab Felix Chapa MD CHEMISTRY ORDERABLES [facility] [place] [address] * COLONOSCOPY (07/07/2023 1:39 PM EDT) COLONOSCOPY [facility] Endoscopy Procedure Date: 07/07/2023 1:39 PM ? Patient Name: Indira Roque ? Date of : 1970 ? Age: 53 ? Order #: [id number] ? Instrument Name: [id number] ? Procedure: ? Colonoscopy Indications: ? Abdominal [...] ? was evaluated using the BBPS ? (D[place]port Bowel Preparation Scale) ? with scores of: [...] Procedure Code(s): ? --- Professional --- ? 67089, Colonoscopy, flexible; with ? biopsy, single or multiple CPT copyright 2021 [employer]. All rights reserved. 

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
--- OUTSIDE RECORDS SUMMARY | 2024-01-24 12:28 | XMS_ITS | Referral Summary ---
Author Organization [facility] Address [address] [place] [id number] Care Team Providers Care Shactor Name Role Phone Unknown, Provider Primary Care Provider Unava ilable Social History Tobacco Use Types Packs/Day Years [...] C Antibody Negative Negative 05/20/2020 11:15 EDT [facility] Blood VENOUS BLOOD / Unknown 05/17/2020 14:00 EST 05/19/2020 16:37 EDT us Provider Outr Resulting Lab CHEMISTRY & BLOOD GA S ORDERABLES Final Result [facility] [address] [place] [address] from Last 3 Months or Most Recently Relevant to Health Maintenance Care Teams Shactor Relationship Specialty Start Date End Date Unknown, Provider, PCP - General 01/28/10
--- OUTSIDE RECORDS SUMMARY | 2024-01-24 12:28 | XMS_ITS | Encounter Summary ---
Author Organization [facility] Address [facility] [place] [address] Care Team Providers Care Tassel Maker Name Role Phone Polo Pearce Primary Care Provider [phone] Encounter Details Date Type Department Care Team (Latest Contact Info) Description 11/29/2023 Travel Social History Tobacco Use Types Packs/Day [...] PM EST Office Visit Cardiology at [address] [place] [phone] Jaspreet Kinsey MD [facility] [place] [address] documented as of this encounter Visit Diagnoses Not on filedocumented in this encounter Care Teams Tassel Maker Relationship Specialty Start Date End Date Polo Pearce PA Sb [address] [place] [id number] PCP - General Internal Medicine 06/09/21 documented as of this encounter
--- OUTSIDE RECORDS SUMMARY | 2024-01-24 12:28 | XMS_ITS | Encounter Summary ---
Author Organization [facility] Address [address] [place] [address] Care Team Providers Care Novelty Candy Maker Name Role Phone Unknown, Provider Primary Care Provider Unava ilable Encounter Details Date Type Department Care Team (Late st Contact Info) Description 01/07/2021 Lab Requisition [facility] Pathology & Laboratory Medicine - [address] [id number] Outr Resulting Lab, Provider Social History Tobacco [...] Comments ZZCOVID-19 TEST [facility] PCR Today 01/06/2021 14:00 EDT COVID-19 TESTING Routine 01/06/2021 14:0 0 EDT documented in this encounter Results * COVID-19 TEST [facility] PCR (01/06/2021 14:00 EDT) Swab ENTIRE NASOPHARYNX / Unknown 01/06/2021 14:00 EDT 01/07/2021 17:19 EDT us Provider Outr Resulting Lab MICROBIOLOGY - GENER AL ORDERABLES Final Result [facility] [address] [place] [address] * COVID-19 TESTING (01/06/2021 14:00 EDT) COVID-19 rt-PCR Result Negative Negative 01/08/2021 12:42 EDT [facility] Comment: This test has [...] was performed using the ric SARS-CoV-2 assay ([employer] on the Ric 6800 System Performing Lab Ric 6800 [facility] Lab 01/08/2021 12:42 EDT [facility] Swab 01/06/2021 14:0 0 EDT 01/07/2021 17:19 EDT us Provider Outr Resulting Lab MICROBIOLOGY - GENER AL ORDERABLES Final Result [facility] [address] [place] [address] documented in this encounter Visit Diagnoses Not on filedocumented in this encounter Care Teams Novelty Candy Maker Relationship Specialty Start Date End Date Unknown, Provider, PCP - General 01/28/10 documented as of this encounter
--- OUTSIDE RECORDS SUMMARY | 2024-01-24 12:28 | XMS_ITS | Clinical Summary ---
Author Organization [facility] Address [address] [place] [address] Care Team Providers Care Book Binder Name Role Phone Unknown, Provider Primary Care [...] Done Comments Hepatitis B Vaccine (1 of - 19+ 3-dose series) 03/08 COVID-19 Vaccine ( season) 2023 Hepatitis C Screen Completed 05/17/2020 Procedures Procedure Name Priority Date/Time Associated Diagnosis Comments HEPATITIS C AB W REFLEX TO HCV RNA BY PCR Routine 05/17/2020 14:00 EST from Last 3 Months or Most Recently Relevant to Health Maintenance Results * HEPATITIS C AB W REFLEX TO HCV RNA BY PCR (05/17/2020 14:00 EST) Hep C Antibody Negative Negative 05/20/2020 11:[address] [facility] Blood VENOUS BLOOD / Unknown 05/17/2020 14:00 EST 05/19/2020 16:37 EDT us Provider Outr Resulting Lab CHEMISTRY & BLOOD GA S ORDERABLES Final Result [facility] [address] [place] [address] from Last 3 Months or Most Recently Relevant to Health Maintenance Care Teams Book Binder Relationship Specialty Start Date End Date Unknown, Provider, PCP - General 01/28/10
--- OUTSIDE RECORDS SUMMARY | 2024-01-24 12:28 | XMS_ITS | Encounter Summary ---
Author Organization [facility] Address [address] [place] [address] Care Team Providers Care Lottery Office Manager Name Role Phone Unknown, Provider Primary Care Provider Unava ilable Encounter Details Date Type Department Care Team (Late st Contact Info) Description 09/06/2020 Lab Requisition [facility] Pathology & Laboratory Medicine - [facility] [address] [place], [place] [address] Outr Resulting Lab, Provider Social History Tobacco [...] Comments ZZCOVID-19 TEST [facility] PCR Today 09/05/2020 14:00 EDT COVID-19 TESTING Routine 09/05/2020 14:0 0 EDT documented in this encounter Results * COVID-19 TEST [facility] PCR (09/05/2020 14:00 EDT) Swab ENTIRE NASOPHARYNX / Unknown 09/05/2020 14:00 EDT 09/06/2020 16:13 EDT us Provider Outr Resulting Lab MICROBIOLOGY - GENER AL ORDERABLES Final Result [facility] [address] [place] [address] * COVID-19 TESTING (09/05/2020 14:00 EDT) COVID-19 rt-PCR Result Negative Negative 09/07/2020 14:05 EDT [facility] Comment: This test has not [...] developed and its performance characteristics determined by [facility]. It has not been cleared or [...] testing. This test is based on the [facility] COVID-19 Emergency Use Authorization (EUA) assay, with minor modification as defined by the FDA Performed on the [employer] 7 Flex RT-PCR System. Performing Lab [facility] 09/07/2020 14:05 EDT [facility] Swab 09/05/2020 14:0 0 EDT 09/06/2020 16:13 EDT us Provider Outr Resulting Lab MICROBIOLOGY - GENER AL ORDERABLES Final Result [facility] [address] [place] [address] documented in this encounter Visit Diagnoses Not on filedocumented in this encounter Care Teams Lottery Office Manager Relationship Specialty Start Date End Date Unknown, Provider, PCP - General 01/28/10 documented as of this encounter
--- OUTSIDE RECORDS SUMMARY | 2024-01-24 12:28 | XMS_ITS | Encounter Summary ---
Author Organization [facility] Address [address] [place] [address] Care Team Providers Care Bread Dough Mixer Name Role Phone Unknown, Provider Primary Care Provider Unava ilable Encounter Details Date Type Department Care Team (Late st Contact Info) Description 09/16/2020 Lab Requisition [facility] Pathology & Laboratory Medicine - [facility] [address] [place], [place] [id number] Outr Resulting Lab, Provider Social History Tobacco [...] IgE 13 <158 IU/mL 09/18/2020 8:45 EDT [facility] Blood VENOUS BLOOD / Unknown 09/16/2020 13:43 EDT 09/16/2020 20:51 EDT us Provider Outr Resulting Lab CHEMISTRY & BLOOD GA S ORDERABLES Final Result [facility] [address] [place] [address] * EXTRACTABLE NUCLEAR ANTIGEN PANEL (09/16/2020 13:43 EDT) SSA Antibody 1.2 <20.0 Units 09/17/2020 15:28 EDT [facility] Comment: ? Negative: <20.0 Units ? Weak Positive: 20.0 - 39.9 Units ? Moderate Positive: 40.0 - 80.0 Units ? Strong Positive: >80.0 Units Results were obtained with the [employer] QUANTA Lite SS-A VAIBHAV. ??SS-A values obtained with different manufacturers' assay methods may not be used interchangeably. ??The magnitude of the reported IgG levels cannot be correlated to an endpoint titer. SSB Antibody 4.9 <20.0 Units 09/17/2020 15:28 [facility] Comment: ? Negative: <20.0 Units ? Weak Positive: 20.0 - 39.9 Units ? Moderate Positive: 40.0 - 80.0 Units ? Strong Positive: >80.0 Units Results were obtained with the [employer] QUANTA Lite SS-B VAIBHAV. ??SS-B values obtained with different manufacturers' assay methods may not be used interchangeably. ??The magnitude of the reported IgG levels cannot be correlated to an endpoint titer. SM (Alcantar) Antibody 3.4 <20.0 Units 09/17/2020 15:28 [facility] Comment: ? Negative: <20.0 Units ? Weak Positive: 20.0 - 39.9 Units ? Moderate Positive: 40.0 - 80.0 Units ? Strong Positive: >80.0 Units Results were obtained with the [employer] QUANTA Lite Sm VAIBHAV. ??Sm values obtained with different manufacturers' assay methods may not be used interchangeably. ??The magnitude of the reported IgG levels cannot be correlated to an endpoint titer. RECORDS MANAGEMENT ASSISTANT Antibody 1.5 <20.0 Units 09/17/2020 15:28 EDT [facility] Comment: ? Negative: <20.0 Units ? Weak Positive: 20.0 - 39.9 Units ? Moderate Positive: 40.0 - 80.0 Units ? Strong Positive: >80.0 Units Results were obtained with the [employer] Quanta Lite RECORDS MANAGEMENT ASSISTANT VAIBHAV. RECORDS MANAGEMENT ASSISTANT values obtained with different pillowcase turner's assay methods may not be used interchangeaby. ??The magnitude of the reported IgG levels cannot be be correlated to an endpoint titer. A positive result in the Quanta Lite RECORDS MANAGEMENT ASSISTANT VAIBHAV indicates the presence of antibodies reactive with the RECORDS MANAGEMENT ASSISTANT/Sm complex but cannot distinguish between anti-Sm and anti-RECORDS MANAGEMENT ASSISTANT activity. Blood VENOUS BLOOD / Unknown 09/16/2020 13:43 EDT 09/16/2020 20:51 EDT us Provider Outr Resulting Lab IMMUNOLOGY AND SEROL OGY ORDERABLES Final Result [facility] [address] [place] [address] * (ABNORMAL) ANTI NUCLEAR AB (KATHRINE), IFA (09/16/2020 13:43 EDT) KATHRINE Interpretation Positive(A) Negative 09/17/2020 15:08 EDT [facility] Comment: For titers greater [...] Pattern 1 1:160 Speckled 09/17/2020 15:08 EDT [facility] Blood VENOUS BLOOD / Unknown 09/16/2020 13:43 EDT 09/16/2020 20:51 EDT Narrative [facility] - 09/17/2020 15:08 EDT Results were obtained with the [employer] NOVA Lite HEp-2 KATHRINE Kit by indirect immunofluorescence. us Provider Outr Resulting Lab IMMUNOLOGY AND SEROL OGY ORDERABLES Final Result [facility] [address] [place] [address] documented in this encounter Visit Diagnoses Not on filedocumented in this encounter Care Teams Bread Dough Mixer Relationship Specialty Start Date End Date Unknown, Provider, PCP - General 01/28/10 documented as of this encounter
--- OUTSIDE RECORDS SUMMARY | 2024-01-24 12:28 | XMS_ITS | Encounter Summary ---
Author Organization [facility] Address [address] [place] [address] Care Team Providers Care Procedure Tech Name Role Phone Unknown, Provider Primary Care Provider Unava ilable Encounter Details Date Type Department Care Team (Late st Contact Info) Description 07/29/2022 Lab Requisition [facility] Pathology & Laboratory Medicine - [facility] [address] [place] [address] Outr Resulting Lab, Provider Social History Tobacco [...] 64 - 147 % 08/05/2022 11:55 EDT [facility] Comment: a.Acquired Protein [...] Provider Outr Resulting Lab HEMATOLOGY & PF4 ORD ERABLES Final Result Performing Organization Address [facility]/ZIP Co de Phone Number [facility] [address] [place] [address] * PROTEIN C ACTIVITY (07/29/2022 9:25 EDT) Protein C Clot 132 71 - 199 % 08/05/2022 11:55 EDT [facility] Comment: a. Acquired [...] Provider Outr Resulting Lab HEMATOLOGY & PF4 ORD ERABLES Final Result Performing Organization Address City/[facility]/ZIP Co de Phone Number [facility] [address] [place] [address] documented in this encounter Visit Diagnoses Not on filedocumented in this encounter Care Teams Procedure Tech Relationship Specialty Start Date End Date Unknown, Provider, PCP - General 01/28/10 documented as of this encounter
--- OUTSIDE RECORDS SUMMARY | 2024-01-24 12:28 | XMS_ITS | Encounter Summary ---
Author Organization [facility] Address [address] [place] [address] Care Team Providers Care Draft Roller Picker Name Role Phone Unavailable Primary Care Provider Unavailabl e Encounter Details Date Type Department Care Team (Late st Contact Info) Description 01/23/2010 Results Only [facility] Laboratory Services - [facility] [address] [place], [place] [id number] Kylee Vaca MD [address] [place] [address] Social History Tobacco Use Types [...] ? ROHAN, LOIDA ? Accession #: ? [id number] ? : ? 1970 (Age: 39) ??F ? Collect Date: ? 01/23/2010 ? Location: ? [facility] ? Receive Date: ? 01/24/2010 ? Provider: KYLEE VACA MD ? Copy to: DARWIN LEMON TECHNICAL SUPPORT ASSISTANT ? Final Pathologic Diagnosis: ? Skin of cheek, right, excisional biopsy: ? 1. ?Melanocytic nevus, intradermal type. See comment. ? - Margins of excision negative. ? Comment: ? Overall, the features of those of an intradermal melanocytic nevus. Within the excision, is a focus consistent with a ruptured follicle. ? Document reviewed and electronically signed by: ? ISHA FARIAS MD ? Report ??Date: 01/27/2010 16:00 ? By the signature above, the attending physician certifies that he/she has ? personally conducted a gross and/or microscopic examination of the described ? specimens and rendered or confirmed the above diagnosis. ? Specimen(s) Received: ? Excisional biopsy skin lesion R cheek ? Clinical History: ? Not listed ? Gross Description: ? Received in formalin labelled RohanLoida and excisional biopsy skin lesion R cheek [...] [facility] 01/23/2010 01/24/2010 16: 20 EST us Kylee Vaca MD PATHOLOGY ORDERABLES Final Resul t [facility] [address] [place] [address] documented in this encounter Visit Diagnoses Not on filedocumented in this encounter
--- OUTSIDE RECORDS SUMMARY | 2024-01-24 12:28 | XMS_ITS | Encounter Summary ---
Author Organization [facility] Address [facility] [place] [address] Care Team Providers Care Panman Name Role Phone Polo Pearce Primary Care Provider [phone] Encounter Details Date Type Department Care Team (Latest Contact Info) Description 12/13/2023 Travel Social History Tobacco Use Types Packs/Day [...] 1:00 PM EST Office Visit Cardiology at [address] [place] [phone] Jaspreet Kinsey MD [facility] [place] [address] documented as of this encounter Visit Diagnoses Not on filedocumented in this encounter Care Teams Panman Relationship Specialty Start Date End Date Polo Pearce PA Sb MOTT [address] [place] [address] PCP - General Internal Medicine 06/09/21 documented as of this encounter
--- OUTSIDE RECORDS SUMMARY | 2024-01-24 12:28 | XMS_ITS | Encounter Summary ---
Author Organization [facility] Address [facility] [place] [address] Care Team Providers Care Journeyman Operator Assistant Name Role Phone Polo Pearce Primary Care Provider [phone] Encounter Details Date Type Department Care Team (Latest Contact Info) Description 01/12/2024 Travel Social History Tobacco Use Types Packs/Day [...] 1:00 PM EST Office Visit Cardiology at [address] [place] [phone] Jaspreet Kinsey MD [facility] [address] documented as of this encounter Visit Diagnoses Not on filedocumented in this encounter Care Teams Journeyman Operator Assistant Relationship Specialty Start Date End Date Polo Pearce PA Sb MOTT [address] [place] [address] PCP - General Internal Medicine 06/09/21 documented as of this encounter
--- OUTSIDE RECORDS SUMMARY | 2024-01-24 12:28 | XMS_ITS | Encounter Summary ---
Author Organization [facility] Address [address] [place] [address] Care Team Providers Care Manager Document Name Role Phone Unavailable Primary Care Provider Unavailabl e Encounter Details Date Type Department Care Team (Late st Contact Info) Description 05/15/1999 Results Only [facility] [address] [place] [address] Channing Brand MD [address] [place] [address] Social History Tobacco Use Types [...] ? LOIDA ROQUE ? Accession #: ? [id number] ? : ? 1970 (Age: 29) ??F ? Collect Date: ? 05/15/1999 ? Location: ?Receive Date: ? 05/15/1999 ? Provider: CHANNING BRAND MD Copy to: CHANNING MYERSFA CHITRA WALKER MD ? Final Pathologic Diagnosis: [...] 05/15/1999 15:4 8 EST 05/15/1999 15:49 EST us Channing Brand MD PATHOLOGY ORDERABLES Final Resul t [facility] [address] [place] [address] documented in this encounter Visit Diagnoses Not on filedocumented in this encounter
--- OUTSIDE RECORDS SUMMARY | 2024-01-24 12:28 | XMS_ITS | Encounter Summary ---
Author Organization [facility] Address [facility] [place] [address] Care Team Providers Care Inventory Control Clerk Name Role Phone Polo Pearce Primary Care Provider [phone] Encounter Details Date Type Department Care Team (Latest Contact Info) Description 11/22/2023 Travel Social History Tobacco Use Types Packs/Day Years Used Date Smoking Tobacco: Never Smokeless Tobacco: Never Alcohol Use Standard Drinks/Week Comments Never 0 (1 standard drink = 0.6 oz pur e alcohol) [facility] Utilities Answer Date Recorded In the [...] 1:00 PM EST Office Visit Cardiology at [address] [place] [phone] Jaspreet Kinsey MD [facility] [place] [address] documented as of this encounter Visit Diagnoses Not on filedocumented in this encounter Care Teams Inventory Control Clerk Relationship Specialty Start Date End Date Polo Pearce PA Sb MOTT [address] [place] [address] PCP - General Internal Medicine 06/09/21 documented as of this encounter
--- OUTSIDE RECORDS SUMMARY | 2024-01-24 12:29 | XMS_ITS | Encounter Summary ---
Author Organization Replaced By [facility] [place] [address] Care Team Providers Care Director Oracle Name Role Phone Polo Pearce Primary Care Provider [phone] Reason for Visit * Diagnostic Test (Routine) - Closed Specialty Diagnoses / Procedures Referred By Jayant harris Referred To Contact Diagnoses Mesenteric ischemia Procedures Duplex Study Visceral Arteries, Colette Boucher APRN [facility] [place] [address] [facility] [address] [address] Referral ID Status Reason Start Date Expiration Date V isits Requested Visits Authorized [id number] Closed Specialty Service Requested 06/28/2023 06/27/2024 1 1 Encounter Details Date Type Department Care Team (Late st Contact Info) Description 10/08/2023 8:30 AM EDT Tech [place] [address] Channing Escobedo [place] Mesenteric ischemia Social History Tobacco Use Types Packs/Day Years Used Date Smoking Tobacco: Never Smokeless Tobacco: Never Alcohol Use Standard Drinks/Week Comments Never 0 (1 standard drink = 0.6 oz pur e alcohol) [facility] Utilities Answer Date Recorded In the past 12 months has [employer], oil, or water [employer] threatened to shut off services in your [...] in the past 12 m [facility], were you homeless or living in a [...] 1:00 PM EST Office Visit Cardiology at [address] [place] [address] [facility] [place] [place] [address] documented as of this encounter Procedures Procedure Name Priority Date/Time Associated Diagnosis Comments MESENTERIC COMPLETE Routine 10/08/2023 8 :22 AM EDT Mesenteric ischemia documented in this encounter Results * Duplex Study Visceral Arteries, Comp (10/08/2023 8:22 AM EDT) VB Text Report Department: Vascular Surgery Lab Patient: [id number] (LOIDA ROQUE) CPT: 00689 Referring Physician: JUDITH PICKENS ?? Phone: Indications: [...] [facility] 10/08/2023 8:22 AM EDT Judith Pickens STOVE TENDER VASCULAR ORDERABLES [facility] documented in this encounter Visit Diagnoses Diagnosis Mesenteric ischemia Unspecified vascular insufficiency of intestine documented in this encounter Care Teams Director Oracle Relationship Specialty Start Date End Date Polo Pearce PA [address] [place] [address] PCP - General Internal Medicine 06/09/21 documented as of this encounter
--- OUTSIDE RECORDS SUMMARY | 2024-01-24 12:29 | XMS_ITS | Encounter Summary ---
[place] [address] Care Team Providers Care Manager It Security Name Role Phone Polo Pearce Primary Care Provider [phone] Reason for Referral * Diagnostic Test (Routine) - Closed Specialty Diagnoses / Procedures Referred By Contac t Referred To Contact Radiology Diagnoses Nausea without vomiting Early satiety Procedures NM Gastric Emptying [place] [address] [place] [address] Referral ID Status Reason Start Date Expiration Date V isits Requested Visits Authorized [id number] Closed Specialty Service Requested 08/25/2023 02/23/2025 1 1 Reason for Visit * Diagnostic Test (Routine) - Closed Specialty Diagnoses / Procedures Referred By Contac t Referred To Contact Radiology Diagnoses Nausea without vomiting Early satiety Procedures NM Gastric Emptying Scan [place] [address] [place] [address] Referral ID Status Reason Start Date Expiration Date V isits Requested Visits Authorized [id number] Closed Specialty Service Requested 08/25/2023 02/23/2025 1 1 Encounter Details Date Type Department Care Team (Latest Contact Info) Description 10/21/2023 9:02 AM EDT Hospital Encounter [place] [phone] Mary Reyes COUNTRY PRINTER [facility] [place] [address] Nausea without vomiting; Early satiety Discharge Disposition: Home Social History Tobacco Use Types Packs/Day Years Used Date Smoking Tobacco: Never Smokeless Tobacco: Never Alcohol Use Standard Drinks/Week Comments Never 0 (1 standard drink = 0.6 oz pur e alcohol) [facility] Utilities Answer Date Recorded In the past 12 months has e [employer], gas, oil, or water [employer] threatened to shut off services in your [...] No 06/15/2023 Housing Stability Vital Sign Answer Micthell e Recorded In the last 12 months, was t here a time when you were not able to pay the mortgage or rent on time? No 08/30/2023 In the past 12 months, how m any times have you moved where you were living? 1 08/30/2023 At any time in the past 12 m [facility], were you homeless or living in [...] Sig Dispensed Refills Start Date End Date potassium chloride (Klor-Con, K-Tab) 20 mEq ER [...] by mouth nightly. empagliflozin (Jardiance) 10 mg TabletIndications:Chron ic heart failure with preserved ejection fraction Take 1 tablet by mouth daily. 90 tablet 1 06/11/2021 rOPINIRole (Requip) 1 mg Tablet Take 2 mg by mouth 2 times daily. 07/16/2020 loratadine (Claritin) 10 mg Tablet Take 10 mg by mouth daily as needed. fluticasone propionate (FLONASE) 50 mcg/actuation [place], Suspension 1 spray by Each Nare route [...] 4 hours as needed. Use with spacer metoproloL tartrate (Lopressor) 25 mg tablet Take 1 tablet by mouth 2 times daily. 180 tablet 3 09/10/2023 11/22/2023 omeprazole (PriLOSEC) [address] capsuleIndications:Elmer roesophageal reflux disease, unspecified whether esophagitis present Take 1 capsule by mouth daily. 30 capsule 5 08/25/2023 01/12/2024 torsemide (Demadex) 20 mg tabletIndications:Heart failure with preserved ejection fraction, unspecified HF chronicity Take 2 tablets by mouth 2 times daily. 180 tablet 07/14/2023 10/28/2023 metOLazone (Zaroxolyn) 2.5 mg tablet Take 1 tablet by mouth as needed (take daily for weight gain + increasing shortness of breath. take 30-60 minutes prior to a dose of torsemide). 30 tablet 06/09/2023 10/26/2023 rimegepant (Nurtec ODT) 75 mg disintegrating tablet Take 75 mg by mouth daily as needed. 10/26/2023 documented as of this encounter Plan of Treatment Upcoming Encounters Date Type Department Care Team (Late st Contact Info) Description 02/10/2024 1:00 PM EST Office Visit Cardiology at [address] [place] [address] Jaspreet Kinsey MD [facility] [place] [address] documented as of this encounter Procedures Procedure Name Priority Date/Time Associated Diagnosis Comments NM GASTRIC EMPTYING SCAN Routine 10/21/2023 1:54 PM EDT Nausea without vomiting Early satiety documented in this encounter Results * NM Gastric Emptying Scan (10/21/2023 1:54 PM EDT) WORKSTATION ID [id number] [facility] Anatomical Region Laterality Modality Nuclear Medicine Impressions [...] who have questions please contact the health associate director career services that requested your imaging first. ? Narrative 10/21/2023 5:16 PM EDT EXAMINATION: NM [...] patients who have questions please contactthe health associate director career services that requested your imaging first. Mary Reyes COUNTRY PRINTER IMG [place] ORDERABLES documented in this encounter [...] mCi documented in this encounter Care Teams Manager It Security Relationship Specialty Start Date End Date Polo Pearce PA [address] [place] [address] PCP - General Internal Medicine 06/09/21 documented as of this encounter
--- OUTSIDE RECORDS SUMMARY | 2024-01-24 12:29 | XMS_ITS | Encounter Summary ---
Author Organization [place] [address] Care Team Providers Care Restaurant District Manager Name Role Phone Polo Pearce Primary Care Provider [phone] Encounter Details Date Type Department Care Team (Late st Contact Info) Description 11/22/2023 4:40 PM EDT Office Visit Cardiology at [address] [address] Porsha Mcdaniels MD [facility] [place] [address] PAF (paroxysmal atrial fibrillation) Social History Tobacco [...] in a detention (including now)? No 06/15/2023 Housing Stability Vital Sign Answer Mitchell e Recorded In the last 12 months, was t here a time when you were not able to pay the mortgage or rent on time? No 08/30/2023 In the past 12 months, how m any times have you moved where you were living? 1 08/30/2023 At any time in the past 12 m [facility], were you homeless or living in a detention (including now)? No 08/30/2023 IPV Inpatient Questions [...] Sign Reading Time Taken Comments Blood Pressure 121/79 11/22/2023 4:35 PM EDT Pulse 52 11/22/2023 4:35 PM EDT Temperature - - Respiratory Rate - - Oxygen Saturation 97% 11/22/2023 4:35 PM EDT Inhaled Oxygen Concentration - - Weight 99.8 kg (220 lb) 11/22/2023 4:35 PM EDT Height 162.6 cm (5' 4) 11/22/2023 4:35 PM EDT Body Mass Index 37.76 11/22/2023 4:35 PM EDT documented in this encounter Progress Notes * Arslan, Porsha I, MD - 11/22/2023 4:40 PM EDT Images from the original note were not included. [facility] [place] [address] Referring Provider: Jaspreet Kinsey MD [facility] [place] [address] Reason for Consultation / Chief Complaint: MINOCA [...] MINOCA. She follows with Dr. Kinsey in [place]. She underwent CCTA 09/27 that showed mild disease in her LAD. She also had a cardiac cath in 2019 with normal cors. [facility] due to exertional chest pressure and breathlessness. [...] and no concomitant arrhythmias Was admitted to [facility] early last month for malaise, chest pain and SOB. Going on for a few years now. Having squeezing chest pain associated with SOB. Occurs with minimal activity. Dad had stents and pacemaker Mom has Fhx of CAD Nitro helps a little bit. 2 nitro this last week. Sitting in bed both times. Typing at work. Gets really tired very easily. Apple picking with her granddaughters. Other Past Medical History: Patient Active Problem [...] J98.4, E66.9 Paresthesia of hand, bilateral R20.2 Social History: reports that she has never smoked. She has never used smokeless tobacco. She reports that she does not drink alcohol and does not use drugs. Family History: Family History Problem Relation Age of Onset Hypertension Mother Arrhythmia Father Heart Surgery Father Myocardial Infarction Father Coronary Artery Disease Father Stomach Cancer Other ALLERGIES: Allergies Allergen Reactions Codeine Other (See Comments) Per pt it causes severe jittery and uncomfortable feeling Acetaminophen Other (See Comments) Makes her jittery, feel weird and cause swelling in upper/lower extremities Clobetasol Rash Other reaction(s): Skin Rash MEDICATIONS: Current Outpatient Medications: Wegovy 0.5 mg/0.5 mL Pen Injector, INJECT 0.5 MG (ONE PEN) SUBCUTANEOUSLY ONCE WEEKLY, Disp: , Rfl: metOLazone (Zaroxolyn) 2.5 mg tablet, Take 1 tablet by mouth as needed (take daily for weight gain + increasing shortness of breath. take 30-60 minutes prior to a dose of torsemide)., Disp: 30 tablet, Rfl: PRN torsemide (Demadex) 20 mg tablet, Take 1 tablet by mouth daily., Disp: , Rfl: potassium chloride (Klor-Con, K-Tab) 20 mEq ER tablet, Take 2 tablets by mouth 2 times daily., Disp: , Rfl: Ubrelvy 50 mg tablet, TAKE ONE TABLET BY MOUTH ONCE A SINGLE DOSE , MAY REPEAT IN 2 HOURS AFTER FIRST DOSE IF NEEDED, Disp: , Rfl: omeprazole (PriLOSEC) [address] capsule, Take 1 capsule by mouth daily., Disp: 30 capsule, Rfl: 5 ranolazine ER (Ranexa) 1,000 mg ER 12 hr tablet, Take 1 tablet by mouth 2 times daily., Disp: 180 tablet, Rfl: 3 atorvastatin (Lipitor) 40 mg tablet, Take 1 tablet by mouth every evening., Disp: 90 tablet, Rfl: 3 nitroGLYcerin (Nitrostat) 0.4 mg sublingual tablet, Place [...] mg capsule, Take 10 mg by mouth nightly., Disp: , Rfl: empagliflozin (Jardiance) 10 mg Tablet, Take 1 tablet by mouth daily., Disp: 90 tablet, Rfl: 1 rOPINIRole (Requip) 1 mg Tablet, Take 2 mg by mouth 2 times daily., Disp: , Rfl: loratadine (Claritin) 10 mg Tablet, Take 10 mg by mouth daily as needed., Disp: , Rfl: fluticasone propionate (FLONASE) 50 mcg/actuation [place], Suspension, 1 spray by Each Nare route [...] needed. Use with spacer, Disp: , Rfl: metoproloL tartrate (Lopressor) 25 mg tablet, Take 0.5 tablets by mouth daily., Disp: 30 tablet, Rfl: 5 ROS: As per HPI, otherwise the remainder of the ROS was either non-pertinent or negative. PHYSICAL EXAM: Vitals: 11/22/23 1635 BP: 121/79 Pulse: 52 SpO2: 97% Weight: 99.8 kg (220 lb) Height: 162.6 cm (5' 4) General: [...] 2+ radial pulse LUE: 2+ radial pulse NITROGLYCERIN DISTRIBUTOR: Normal mentation. Moves all extremities without limitation. Gait is normal. Psych: Appropriate affect. Mood appropriate. Thought process linear. TESTING: I have reviewed the pertinent outside records, laboratory data, and imaging studies. Labs: CBC: Recent Labs 09/10/2341609/09/23 0510 09/08/23 0222 WBC 7.6 7.4 8.6 HGB 13.0 13.0 12.8 PLATELET 267 267 274 Chemistry: Recent Labs 09/10/2341609/09/23 0510 09/08/23 0222 NA 138 137 139 K 4.1 3.6 3.6 CL 103 100 103 CO2 BUN 27* 22* 19* CREATININE 1.39* 1.36* 1.41* GLUCOSE 92 97 98 Recent Labs 09/10/23 0417 09/09/23 0510 09/08/23 0222 09/01/23 0308 08/31/23 1703 08/25/23 1128 07/09/23 0303 07/08/23 0552 CALCIUM 9.4 9.5 9.1 < > 9.6 < > 9.3 9.3 MAGNESIUM 0.99 0.97 0.91 < > 0.95 < > 0.91 0.89 PHOS -- -- -- -- 3.8 -- 4.5 4.3 < > = values in this interval not displayed. LFT's: Recent Labs 08/28/23 2107 07/07/23 0351 07/06/23 1541 BILITOT 0.6 0.4 0.4 BILIDIR 0.2 0.1 0.1 ALBUMIN 4.2 4.4 4.3 ALKPHOS 52 54 58 ALT 28 20 22 AST 32* 15 20 Cardiac enzymes: Recent Labs 09/02/23 1705 08/28/23 2107 06/24/23 0338 PROBNP 985* 2,854* 1,239* Endocrine: Recent Labs 06/15/23 0428 04/17/23 0333 02/08/23 2208 TSH 2.98 5.93* 4.00 Lipid Panel Lab Results Component Value Date CHLPL 203 08/28/2023 HDL 52 08/28/2023 CHOLHDL 3.9 04/18/2023 TRIG 146 08/28/2023 LDLCHOL 122 08/28/2023 LDLDIRECT 105 04/18/2023 A/P: Indira Roque is a 53 y.o. female who presents for evaluation of the following cardiovascular issues: Recommendations: Doing well on current regimen Porsha Mcdaniels MD Section of Interventional Cardiology [facility] [employer] analytics consultant [facility] of Medicine at [facility] 11/29/2023 documented in this encounter Plan of Treatment Upcoming Encounters Date Type Department Care Team (Late st Contact Info) Description 02/10/2024 1:00 PM EST Office Visit Cardiology at [address] [place] [phone] Jaspreet Kinsey MD [facility] [place] [address] documented as of this encounter Visit Diagnoses Diagnosis PAF (paroxysmal atrial fibrillation) Atrial fibrillation documented in this encounter Care Teams Restaurant District Manager Relationship Specialty Start Date End Date Polo Pearce PA [address] [place] [address] PCP - General Internal Medicine 06/09/21 documented as of this encounter
--- OUTSIDE RECORDS SUMMARY | 2024-01-24 12:29 | XMS_ITS | Encounter Summary ---
Author Organization [facility] [place] [address] Care Team Providers Care Transaction Processor Name Role Phone Polo Pearce Primary Care Provider [phone] Encounter Details Date Type Department Care Team (Late st Contact Info) Description 09/20/2023 [place] [phone] Vito Pearce MD [facility] [place] [address] Social History Tobacco Use Types Packs/Day Years Used Date Smoking Tobacco: Never Smokeless Tobacco: Never Alcohol Use Standard Drinks/Week Comments Never 0 (1 standard drink = 0.6 oz pur e alcohol) [facility] Utilities Answer Date Recorded In the past 12 months has e [employer], gas, oil, or water [employer] threatened to shut off services in [...] any time in the past [facility], were you homeless or living in a senior living (including now)? No 08/30/2023 IPV Inpatient Questions [...] Referring provider: Jasen Montes MD Patient location: [facility] Past medical history: Microvascular disease; nonobstructive [...] oscillating regional function of the anterior wall. [facility] 04/2023 Coronary Angiography: Dominance: Right Left Main [...] 1:00 PM EST Office Visit Cardiology at [address] [place] [address] Jaspreet Kinsey MD [facility] [place] [address] documented as of this encounter Visit Diagnoses Not on filedocumented in this encounter Care Teams Transaction Processor Relationship Specialty Start Date End Date Polo Pearce PA [address] [place] [address] PCP - General Internal Medicine 06/09/21 documented as of this encounter
--- OUTSIDE RECORDS SUMMARY | 2024-01-24 12:29 | XMS_ITS | Encounter Summary ---
Author Organization [facility] [place] [address] Care Team Providers Care Alteration Manager Name Role Phone Polo Pearce Primary Care Provider [phone] Encounter Details Date Type Department Care Team (Late st Contact Info) Description 11/02/2023 Telephone [place] [phone] Lana Gonzales, RN Social History Tobacco Use Types Packs/Day Years Used Date Smoking Tobacco: Never Smokeless Tobacco: Never Alcohol Use Standard Drinks/Week Comments Never 0 (1 standard drink = 0.6 oz pur e alcohol) [facility] Utilities Answer Date Recorded In the past 12 months has e [employer], gas, oil, or water [employer] threatened to shut off services in your [...] encounter Miscellaneous Notes * Telephone Encounter - Lana Gonzales RN - 11/02/2023 10:48 AM EDT TC to pt. Spoke with pt. Discussed with pt results per Dr. Arce, per this encounter. Pt requests to have PFPT at [place], [place]. * Telephone Encounter - Lana Gonzales RN - 11/02/2023 10:35 AM EDT ----- Message from Dustin Arce sent at 11/01/2023 1:05 PM EDT ----- I'm covering Sander[employer] inbasket This patient had abnormalities on their recent anorectal manometry testing consistent with dyssynergic defecation Can we please touch base with them to see if they would be interested in a referral to pelvic floorphysiotherapy and if so where would they prefer? I can put the referral in for them. Thank you Dustin documented in this encounter Plan of Treatment Upcoming Encounters Date Type Department Care Team (Late st Contact Info) Description 02/10/2024 1:00 PM EST Office Visit Cardiology at [address] [place] [address] Jaspreet Kinsey MD [facility] [place] [address] documented as of this encounter Visit Diagnoses Not on filedocumented in this encounter Care Teams Alteration Manager Relationship Specialty Start Date End Date Polo Pearce PA [address] [place] [address] PCP - General Internal Medicine 06/09/21 documented as of this encounter
--- OUTSIDE RECORDS SUMMARY | 2024-01-24 12:29 | XMS_ITS | Encounter Summary ---
Author Organization [facility] [place] [address] Care Team Providers Care General Laborer Name Role Phone Polo Pearce Primary Care Provider [phone] Encounter Details Date Type Department Care Team (Latest Contact Info) Description 10/29/2023 10:00 AM EDT Clinical [place] [address] Gastroesophageal reflux disease, unspecified whether esophagitis present Social History Tobacco Use Types Packs/Day Years Used Date Smoking Tobacco: Never Smokeless Tobacco: Never Alcohol Use Standard Drinks/Week Comments Never 0 (1 standard drink = 0.6 oz pur e alcohol) [facility] Utilities Answer Date Recorded In the past 12 months has e [employer], gas, oil, or water [employer] threatened to shut off services in your [...] of this encounter Progress Notes * Heidy Solitario RN - 10/29/2023 10:00 AM EDT The patient returns today for removal of the 24-hour Impedance catheter, which was placed yesterdayin the [facility] Lab. The catheter was removed without complication and the study will be uploaded today. The patient is aware that study results will be made available to their referring provider andtheir PCP, typically within the next 10 to 14 days. All questions were answered to the patient's satisfaction and they know to contact us with further concerns. documented in this encounter Plan of Treatment Upcoming Encounters Date Type Department Care Team (Late st Contact Info) Description 02/10/2024 1:00 PM EST Office Visit Cardiology at [address] [place] [address] Jaspreet Kinsey MD [facility] [place] [address] documented as of this encounter Visit Diagnoses Diagnosis Gastroesophageal reflux disease, unspecified whether esophagitis present documented in this encounter Care Teams General Laborer Relationship Specialty Start Date End Date Polo Pearce PA [address] [place] [address] PCP - General Internal Medicine 06/09/21 documented as of this encounter
--- OUTSIDE RECORDS SUMMARY | 2024-01-24 12:29 | XMS_ITS | Encounter Summary ---
Author Organization [facility] Address [facility] [place] [address] Care Team Providers Care Inspector Floor Sub Assembly Name Role Phone Polo Pearce Primary Care Provider [phone] Encounter Details Date Type Department Care Team (Latest Contact Info) Description 10/28/2023 Travel Social History Tobacco Use Types Packs/Day [...] 1:00 PM EST Office Visit Cardiology at [address] [place] [phone] Jaspreet Kinsey MD [facility] [place] [address] documented as of this encounter Visit Diagnoses Not on filedocumented in this encounter Care Teams Inspector Floor Sub Assembly Relationship Specialty Start Date End Date Polo Pearce PA [address] [place] [address] PCP - General Internal Medicine 06/09/21 documented as of this encounter
--- OUTSIDE RECORDS SUMMARY | 2024-01-24 12:29 | XMS_ITS | Encounter Summary ---
Author Organization [facility] Address [facility] [place] [address] Care Team Providers Care Instrument Specialist Name Role Phone Polo Pearce Primary Care Provider [phone] Encounter Details Date Type Department Care Team (Latest Contact Info) Description 10/26/2023 Travel Social History Tobacco Use Types Packs/Day [...] in a snf (including now)? No 08/30/2023 DH IPV Inpatient [...] 1:00 PM EST Office Visit Cardiology at [address] [place] [phone] Jaspreet Kinsey MD [facility] [place] [address] documented as of this encounter Visit Diagnoses Not on filedocumented in this encounter Care Teams Instrument Specialist Relationship Specialty Start Date End Date Polo Pearce PA [address] [place] [address] PCP - General Internal Medicine 06/09/21 documented as of this encounter
--- OUTSIDE RECORDS SUMMARY | 2024-01-24 12:29 | XMS_ITS | Encounter Summary ---
Author Organization [facility] [place] [address] Care Team Providers Care Consulting Sales Manager Name Role Phone Polo Pearce Primary Care Provider [phone] Reason for Referral * Physical Therapy (Routine) - Authorized Specialty Diagnoses / Procedures Referred By Contac t Referred To Contact Physical Therapy Diagnoses Dyssynergic defecation Dustin Arce MD [facility] [place] [address] Unknown None Referral ID Status Reason Start Date Expiration Date Visits Requested Visits Authorized [id number] Authorized Evaluate and Treat Non PCP 11/02/2023 04/30/2024 12 12 Encounter Details Date Type Department Care Team (Late st Contact Info) Description 11/02/2023 Orders [place] [address] Dustin Arce MD [facility] [place] [address] Dyssynergic defecation Social History Tobacco Use Types Packs/Day Years [...] time in the past 12 m [facility], were you homeless or living in a [...] 1:00 PM EST Office Visit Cardiology at [address] [place] [address] Jaspreet Kinsey MD [facility] [place] [address] Scheduled Referrals Name Type Priority Associated Diagnoses Orde r Schedule Referral to Physical Therapy Outpatient Referral Routine Dyssynergic defecation Ordered: 11/02/2023 documented as of this encounter Visit Diagnoses Diagnosis Dyssynergic defecation documented in this encounter Care Teams Consulting Sales Manager Relationship Specialty Start Date End Date Polo Pearce PA [address] [place] [address] PCP - General Internal Medicine 06/09/21 documented as of this encounter
--- OUTSIDE RECORDS SUMMARY | 2024-01-24 12:29 | XMS_ITS | Encounter Summary ---
Author Organization [facility] [place] [address] Care Team Providers Care Lab Rep Name Role Phone Polo Pearce Primary Care Provider [phone] Reason for Referral * Diagnostic Test (Routine) - Pending Review Specialty Diagnoses / Procedures Referred By Contac t Referred To Contact Radiology Procedures Non [place] [address] Referral ID Status Reason Start Date Expiration Date Visits Requested Visits Authorized [id number] Pending Review Specialty Service Requested 09/20/2023 03/22/2025 1 1 * Diagnostic Test (Routine) - Pending Review Specialty Diagnoses / Procedures Referred By Contac t Referred To Contact Radiology Procedures Non [place] [address] Referral ID Status Reason Start Date Expiration Date Visits Requested Visits Authorized [id number] Pending Review Specialty Service Requested 09/20/2023 03/22/2025 1 1 * Diagnostic Test (Routine) - Pending Review Specialty Diagnoses / Procedures Referred By Contac t Referred To Contact Radiology Procedures Non [place] [address] Referral ID Status Reason Start Date Expiration Date Visits Requested Visits Authorized [id number] Pending Review Specialty Service Requested 09/20/2023 03/22/2025 1 1 Encounter Details Date Type Department Care Team (Late st Contact Info) Description 09/20/2023 [place] [address] Social History Tobacco Use Types Packs/Day Years [...] any time in the past 12 m [facility], were you homeless or living in [...] PM EST Office Visit Cardiology at [address] [place] [address] Jaspreet Kinsey MD [facility] [place] [address] documented as of this encounter Procedures Procedure [...] Historical Provider IMKadi MRI ORDERABLE S * Non DH External Radiology Exam (09/20/2023 10:42 PM EDT) Anatomical Region Laterality Modality Magnetic Resonan ce Historical Provider MD ESPINOZA MRI ORDERABLE S * Non DH External Radiology Exam (09/20/2023 10:42 PM EDT) Anatomical Region Laterality Modality Magnetic Resonan ce Historical Provider MD ESPINOZA MRI ORDERABLE S * Scan Doc: ECG (09/20/2023 4:51 PM EDT) Historical Provider MD MEDIA MGR SCAN EX T ORDR/RSLT documented in this encounter Visit Diagnoses Not on filedocumented in this encounter Care Teams Lab Rep Relationship Specialty Start Date End Date Polo Pearce PA [address] [place] [address] PCP - General Internal Medicine 06/09/21 documented as of this encounter
--- OUTSIDE RECORDS SUMMARY | 2024-01-24 12:29 | XMS_ITS | Encounter Summary ---
Author Organization [facility] [place] [address] Care Team Providers Care Spring Assembler Name Role Phone Polo Pearce Primary Care Provider [phone] Reason for Referral * Diagnostic Test (Routine) - Closed Specialty Diagnoses / Procedures Referred By Jayant harris Referred To Contact Radiology Diagnoses Esophageal dysphagia Jackhammer esophagus Procedures XR Fluoro Esophagram (Double Contrast) [place] [address] [facility] Rad Xray [address] [place] [phone] Referral ID Status Reason Start Date Expiration Date V isits Requested Visits Authorized [id number] Closed Specialty Service Requested 12/06/2023 06/04/2025 1 1 Reason for Visit * Diagnostic Test (Routine) - Closed Specialty Diagnoses / Procedures Referred By Jayant harris Referred To Contact Gastroenterology Diagnoses Gastroesophageal reflux disease, unspecified whether esophagitis present Esophageal dysphagia HREM - dysphagia Procedures High Resolution Esophageal Manometry PRG UNLISTED DIAGNOSTIC GASTROENTEROLOGY PROCEDURE PRG ESOPHAGEAL MOTILITY STUDY PRG GERD TST W NASAL IMPEDENCE ELECTROD [place] [address] [facility] [place] [address] [address] Referral ID Status Reason Start Date Expiration Date V isits Requested Visits Authorized [id number] Closed Test Only 08/25/2023 08/24/2024 1 1 Encounter Details Date Type Department Care Team (Latest Contact Info) Description 10/28/2023 9:00 AM EDT Office [place] [address] Gastroesophageal reflux disease, unspecified whether esophagitis present; Esophageal dysphagia; Jackhammer esophagus Social History Tobacco Use Types Packs/Day Years [...] as of this encounter Progress Notes * Dustin Arce MD - 10/28/2023 9:00 AM EDT Images from the original note were not included. HIGH-RESOLUTION ESOPHAGEAL MANOMETRY PROCEDURE NOTE Patient: Indira Roque Address: [address] [place] [id number] : 1970 Date of service: 10/28/2023 Indication: Regurgitation Procedure: The patient arrived after an overnight fast. After verbal consent, a Jodi motility catheter with 36 circumferential sensors on 1 cm spacing with impedance sensors was inserted transnasally after application of topical anesthesia to the nasal passage. The catheter was positioned so that at least 2distal sensors were in the stomach and 2 proximal sensors were located above the UES. A 3-5 minute a cclimation period was provided followed by 10 wet swallows of 5 cc of water while supine. Normal values while supine: Upper esophageal sphincter residual pressure: < 12 mmHg Upper esophageal sphincter relaxation duration: > 480 msec Distal contractile integral (DCI): > 450 and < 8,000 mmHg x cm x s Distal latency time: > 4.5 sec Integrated EGJ relaxation pressure (IRP): < 15 mmHg Normal EGJ resting pressure (respiratory mean): 15-34 mmHg Findings: - Upper Esophageal Sphincter: normal mean residual pressure and relaxation duration - Body: 0% of swallows failed. 0% of swallows had premature contractions with shortened distal latency time. The remaining 100% of swallows were peristaltic, includin% of swallows with hypercontractility, 0% of swallows with weak peristalsis, and 0% of swallows with large breaks (>5 cm) in the 20mmHg isocontour line. - Esophagogastric Junction: Midpoint located 42 cm from the nares, and proximal extent located at 40 cm. 1.5 cm hiatal hernia present. Normal resting pressure (mean 33 mmHg) and normal IRP in 100% of swallows (median 7.2 mmHg). - Bolus transit: Liquid boluses cleared in n/a% of swallows. - Multiple rapid swallows: Peristaltic reserve: reduced (ratio of post-multiple rapid swallow DCI to median DCI on 10 supine swallows is <1.0) Deglutitive inhibition: impaired deglutitive inhibition (DCI >=100 mmHg*s*cm) during the maneuver Integrated relaxation pressure: 6 mmHg (normal <12 mmHg) - Rapid drink challenge: Esophageal body contractility: normal deglutitive inhibition (DCI <100 mmHg*s*cm) during the maneuver Integrated relaxation pressure: 6 mmHg (normal <12 mmHg) Online Content Coordinator swallow: Impressions based on Bailey Classification v4.0: 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 A clinically relevant diagnosis requires clinically relevant symptoms of dysphagia or non-cardiac chest pain. Without these symptoms, this finding does not have clinical relevance per Bailey 4.0. Mechanical obstruction must also be carefully ruled out. *These findings assume that mechanical obstruction has been ruled out. Dustin Arce MD, FRCPC Section of Gastroenterology and Hepatology [facility] [place] [address] V: [phone] F: [phone] CC/EC: JOCY [address] [address] * Dustin Arce MD - 10/28/2023 9:00 AM EDT Catheter-based pH/impedance procedure report Patient: Indria Roque Address: [address] [address] [place] [address] : 1970 Referring provider: Korina Ponce Date of service: 11/01/2023 Indication: Regurgitation Procedure: The catheter was placed transnasally after topical anesthetic (1cc of 4% aerosol lidocaine and 1cc of 2% viscous lidocaine), with the esophageal pH sensor located 32cm from the nares, 5 cm above the manometrically identified lower esophageal sphincter. A gastric pH sensor was located 10 cm distal to the top of the lower esophageal sphincter. The patient was instructed to keep a diary of symptoms,and returned the next day for removal of the probe. Testing performed ON omeprazole 20 mg OD acid-suppressive therapy. Analysis Duration Total (HH:MM): 23:01 Analysis Duration Upright (HH:MM): 23:01 Analysis Duration Supine (HH:MM): N/a Acid exposure time (AET): Total distal esophageal acid exposure time: 6.8 % of testing period Upright distal esophageal acid exposure time: 6.8 % of testing period Supine distal esophageal acid exposure time: N/a % of testing period DeMeester Score: 22.2 (normal: <14.7) Normal values for acid exposure time (AET) defined as the % of time with a pH <4 Conclusive evidence for pathologic reflux: AET >7.0% Borderline or inconclusive evidence for pathologic reflux: AET 4.0% to 7.0% Evidence against pathologic reflux: AET <4.0% Reflux symptom association (RSA): No symptoms recorded to evaluate reflux- symptom association. Number of reflux events by impedance: 44 total (normal < 80) and 32 acidic (normal < 80) and 12 weakly acidic (normal < 80) Impression based on the Gamble classification: Borderline or inconclusive evidence for breakthrough acid reflux tested ON omeprazole 20 mg OD medication. No symptoms recorded to evaluate reflux-symptom association. No evidence of elevated reflux burden measured by impedance. References: 1) Modern diagnosis of GERD: the Gamble Consensus. Gut. 2018 Sep; 67(7): 9610-3804. 2) Validation of the Gamble classification for GORD diagnosis: acid exposure time assessed by prolonged wireless pH monitoring in healthy controls and patients with erosive oesophagitis. Gut. 2020. doi10.1136/ygwwjl-6985-648491. Dustin Arce MD, FRCPC Section of Gastroenterology and Hepatology [facility] [place] [address] V: [phone] F: [phone] CC/EC: JOCY [address] [place] [address] documented in this encounter Miscellaneous Notes * Addendum Note - Korina Ponce APRN - 10/28/2023 9:00 AM EDTAddended by: KORINA PONCE on: 12/06/2023 12:48 PM Modules accepted: Orders documented in this encounter Plan of Treatment Upcoming Encounters Date Type Department Care Team (Late st Contact Info) Description 02/10/2024 1:00 PM EST Office Visit Cardiology at [address] [address] Jaspreet Kinsey MD [facility] [place] [address] documented as of this encounter Results * XR Fluoro Esophagram (Double Contrast) (12/22/2023 8:18 AM EDT) WORKSTATION ID [id number] RAD Anatomical Region Laterality Modality N/A Radio [...] who have questions please contact the health medicare sales representative that requested your imaging first. ? Electronically signed by: LUZ ALEXANDRA MD, [facility] ([phone]), at 12/22/2023 9:51 AM Narrative 12/22/2023 9:51 AM EDT EXAMINATION: XR FLUORO ESOPHAGRAM (DOUBLE CONTRAST) CLINICAL HISTORY: esophageal dysphagia, jackhammer esophaguse on HREM R13.19, Other dysphagia - K22.4, Dyskinesia of esophagus TECHNIQUE: Double contrast esophagram was performed. Fluoroscopic spot films were obtained. A 13 mm barium tablet was administered. Fluoro time: 48 seconds COMPARISON: CT abdomen and pelvis 09/05/2023, CT chest 04/16/2023, chest radiograph 05/02/2021 FINDINGS: Computer Network And Systems Engineer image: The cardiomediastinal contours, satish, and pulmonary [...] 09/05/2023, CT chest 04/16/2023, chest radiograph05/02/2021 FINDINGS: Computer Network And Systems Engineer image: The cardiomediastinal contours, satish, and pulmonary [...] patients who have questions please contactthe health medicare sales representative that requested your imaging first. Electronically signed by: LUZ ALEXANDRA MD, [facility]([phone]), at 12/22/2023 9:51 AM Korina Ponce APRN IMG FLUORO ORDERAB LES documented in this encounter Visit Diagnoses Diagnosis Gastroesophageal reflux disease, unspecified whether esophagitis present Esophageal dysphagia Dysphagia, pharyngoesophageal phase Jackhammer esophagus Esophageal dysphagia Dysphagia, pharyngoesophageal phase Jackhammer esophagus documented in this encounter Care Teams Spring Assembler Relationship Specialty Start Date End Date Polo Pearce PA [address] [place] [address] PCP - General Internal Medicine 06/09/21 documented as of this encounter
--- OUTSIDE RECORDS SUMMARY | 2024-01-24 12:29 | XMS_ITS | Encounter Summary ---
[place] [address] Care Team Providers Care Plastic Parts Fabricator Name Role Phone Polo Pearce Primary Care Provider [phone] Reason for Visit * Diagnostic Test (Routine) - Closed Specialty Diagnoses / Procedures Referred By Jayant harris Referred To Contact Radiology Diagnoses Nausea without vomiting Early satiety Procedures NM Gastric Emptying Scan Mary Reyes DESK REPRESENTATIVE [facility] [address] [place] [address] Referral ID Status Reason Start Date Expiration Date V isits Requested Visits Authorized [id number] Closed Specialty Service Requested 08/25/2023 02/23/2025 1 1 Encounter Details Date Type Department Care Team (Latest Contact Info) Description 10/21/2023 9:03 AM EDT - 10/21/2023 11:59 PM EDT Hospital Encounter [place] [address] [place] [address] Discharge Disposition: Home Social History Tobacco Use Types Packs/Day Years Used Date Smoking Tobacco: Never Smokeless Tobacco: Never Alcohol Use Standard Drinks/Week Comments Never 0 (1 standard drink = 0.6 oz pur e alcohol) [facility] Utilities Answer Date Recorded In the [...] any time in the past 12 m [facility], were you homeless or living [...] as needed. fluticasone propionate (FLONASE) 50 mcg/actuation [place], Suspension 1 spray by Each Nare route [...] 1:00 PM EST Office Visit Cardiology at [address] [place] [address] Jaspreet Kinsey MD [facility] [place] [address] documented as of this encounter Procedures Procedure Name Priority Date/Time Associated Diagnosis Comments NM GASTRIC EMPTYING SCAN Routine 10/21/2023 1:54 PM EDT Nausea without vomiting Early satiety documented in this encounter Results * NM Gastric Emptying Scan (10/21/2023 1:54 PM EDT) WORKSTATION ID [id number] RAD Anatomical Region Laterality Modality Nuclear Medicine [...] questions please contact the health primary care provider that requested your imaging first. ? Electronically signed by: Humberto Qureshi MD, [facility] ([phone]), at 10/21/2023 5:16 PM Narrative 10/21/2023 5:16 [...] have questions please contactthe health primary care provider that requested your imaging first. Electronically signed by: Humberto Qureshi MD, [facility]([phone]), at 10/21/2023 5:16 PM Mary Reyes DESK REPRESENTATIVE IMG NM ORDERABLES documented in this encounter Visit Diagnoses Not on filedocumented in this encounter Care Teams Plastic Parts Fabricator Relationship Specialty Start Date End Date Polo Pearce PA [address] [place] [address] PCP - General Internal Medicine 06/09/21 documented as of this encounter
--- OUTSIDE RECORDS SUMMARY | 2024-01-24 12:29 | XMS_ITS | Encounter Summary ---
Author Organization Count Includes [facility] Address [facility] [place] [address] Care Team Providers Care Bottom Hoop Driver Name Role Phone Polo Pearce Primary Care Provider [phone] Encounter Details Date Type Department Care Team [...] 1:00 PM EST Office Visit Cardiology at [address] [place] [address] Jaspreet Kinsey MD [facility] [place] [address] documented as of this encounter Visit Diagnoses Not on filedocumented in this encounter Care Teams Bottom Hoop Driver Relationship Specialty Start Date End Date Polo Pearce PA [address] [place] [address] PCP - General Internal Medicine 06/09/21 documented as of this encounter
--- OUTSIDE RECORDS SUMMARY | 2024-01-24 12:29 | XMS_ITS | Encounter Summary ---
[place] [address] Care Team Providers Care Home Day Care Provider Name Role Phone Polo Pearce Primary Care Provider [phone] Reason for Visit * Diagnostic Test (Routine) - Closed Specialty Diagnoses / Procedures Referred By Jayant harris Referred To Contact Radiology Diagnoses Nausea without vomiting Early satiety Procedures NM Gastric Emptying Scan Mary Reyes HAND KISS SETTER [facility] [place] [address] [place] [address] Referral ID Status Reason Start Date Expiration Date V isits Requested Visits Authorized [id number] Closed Specialty Service Requested 08/25/2023 02/23/2025 1 1 Encounter Details Date Type Department Care Team (Latest Contact Info) Description 10/21/2023 9:03 AM EDT - 10/21/2023 11:59 PM EDT Hospital Encounter [place] [address] [place] [address] Discharge Disposition: Home Social History Tobacco Use [...] as needed. fluticasone propionate (FLONASE) 50 mcg/actuation [place], Suspension 1 spray by Each Nare [...] 1:00 PM EST Office Visit Cardiology at [address] [place] [address] Jaspreet Kinsey MD [facility] [place] [address] documented as of this encounter Procedures Procedure Name Priority Date/Time Associated Diagnosis Comments NM GASTRIC EMPTYING SCAN Routine 10/21/2023 1:54 PM EDT Nausea without vomiting Early satiety documented in this encounter Results * NM Gastric Emptying Scan (10/21/2023 1:54 PM EDT) WORKSTATION ID [id number] RAD Anatomical Region Laterality Modality Nuclear Medicine [...] have questions please contact the health rn urgent care that requested your imaging first. ? Electronically signed by: Humberto Qureshi MD, [facility] ([phone]), at 10/21/2023 5:16 PM Narrative 10/21/2023 5:16 [...] who have questions please contactthe health rn urgent care that requested your imaging first. Electronically signed by: Humberto Qureshi MD, [facility]([phone]), at 10/21/2023 5:16 PM Mary Reyes HAND KISS SETTER IMG NM ORDERABLES documented in this encounter Visit Diagnoses Not on filedocumented in this encounter Care Teams Home Day Care Provider Relationship Specialty Start Date End Date Polo Pearce PA [address] [place] [address] PCP - General Internal Medicine 06/09/21 documented as of this encounter
--- OUTSIDE RECORDS SUMMARY | 2024-01-24 12:29 | XMS_ITS | Encounter Summary ---
[place] [address] Care Team Providers Care Marketing Engineer Name Role Phone Polo Pearce Primary Care Provider [phone] Reason for Visit * Diagnostic Test (Routine) - Closed Specialty Diagnoses / Procedures Referred By Jayant harris Referred To Contact Radiology Diagnoses Nausea without vomiting Early satiety Procedures NM Gastric Emptying Scan Mary Reyes DATA ENTRY COORDINATOR [facility] [place] [address] [place] [address] Referral ID Status Reason Start Date Expiration Date V isits Requested Visits Authorized [id number] Closed Specialty Service Requested 08/25/2023 02/23/2025 1 1 Encounter Details Date Type Department Care Team (Latest Contact Info) Description 10/21/2023 9:03 AM EDT - 10/21/2023 11:59 PM EDT Hospital Encounter [place] [address] [place] [address] Discharge Disposition: Home Social History Tobacco Use [...] time in the past 12 m [facility], were you homeless or living in a [...] as needed. fluticasone propionate (FLONASE) 50 mcg/actuation [place], Suspension 1 spray by Each Nare route [...] 1:00 PM EST Office Visit Cardiology at [address] [place] [address] Jaspreet Kinsey MD [facility] [place] [address] documented as of this encounter Procedures Procedure Name Priority Date/Time Associated Diagnosis Comments NM GASTRIC EMPTYING SCAN Routine 10/21/2023 1:54 PM EDT Nausea without vomiting Early satiety documented in this encounter Results * NM Gastric Emptying Scan (10/21/2023 1:54 PM EDT) WORKSTATION ID [id number] RAD Anatomical Region Laterality Modality Nuclear Medicine [...] questions please contact the health career development manager that requested your imaging first. ? Electronically signed by: Humberto Qureshi MD, [facility] ([phone]), at 10/21/2023 5:16 PM Narrative 10/21/2023 5:16 [...] have questions please contactthe health career development manager that requested your imaging first. Electronically signed by: Humberto Qureshi MD, [facility]([phone]), at 10/21/2023 5:16 PM Mary Reyes DATA ENTRY COORDINATOR IMG NM ORDERABLES documented in this encounter Visit Diagnoses Not on filedocumented in this encounter Care Teams Marketing Engineer Relationship Specialty Start Date End Date Polo Pearce PA [address] [place] [address] PCP - General Internal Medicine 06/09/21 documented as of this encounter
--- OUTSIDE RECORDS SUMMARY | 2024-01-24 12:29 | XMS_ITS | Encounter Summary ---
[place] [address] Care Team Providers Care Social Welfare Clerk Name Role Phone Polo Pearce Primary Care Provider [phone] Reason for Visit * Diagnostic Test (Routine) - Closed Specialty Diagnoses / Procedures Referred By Jayant harris Referred To Contact Gastroenterology Diagnoses Altered bowel function ARM for constipation Procedures High Definition Anal Manometry PRG ANORECTAL MANOMETRY PRG RECTAL SESATION TONE & COMPLIANCE TEST [place] [address] [facility] [address] [place] [address] Referral ID Status Reason Start Date Expiration Date V isits Requested Visits Authorized [id number] Closed Consult, Test & Treat 08/25/2023 08/24/2024 1 1 Encounter Details Date Type Department Care Team (Latest Contact Info) Description 10/29/2023 10:15 AM EDT Procedure [place] [address] Altered bowel function Social History Tobacco Use Types Packs/Day Years [...] the past 12 m [facility], were you homeless or living in [...] Notes * Heidy Solitario RN - 10/29/2023 10:15 AM EDT A description of the anal manometry procedure was provided to the patient. All questions were answered and the patient verbalized understanding. After performing a digital rectal exam, the HRAM probe was placed in the rectum without difficulty and the procedure was performed. The patient did not identify a sensation of discomfort by 300cc when filling the balloon with air, therefor that portion of the study was discontinued prematurely. After removal of the probe, an anorectal balloon expulsion catheter was placed in the rectum for continuation of the study and then removed. The patient was unable to expel this within the two-minutetimeframe. The patient tolerated the procedure well. * Dustin Arce MD - 10/29/2023 10:15 AM EDT Re: Indira Roque Reg No:[id number] : 1970 Date of Service: 10/29/2023 ANORECTAL MANOMETRY w/BALLOON EXPULSION Referring provider:Mary Reyes Dear: Dr. Reyes We had the pleasure of performing a high resolution anorectal manometry on your patient in the GI Motility Laboratory at [facility]. CLINICAL HISTORY AND INDICATION As you know, she is a 53 y.o. female with complaints of constipation RESULTS Resting sphincter pressure (NL Value: Males 70-100, Females 70-90) : 86 mmHg Max squeeze pressure (NL Value: Males 240-300, Females 160-200) : 128 mmHg Squeeze duration: poor (sustaining at least 50% of the difference between maximum squeeze and resting pressures for fewer than 5 seconds). Rectoanal inhibitory reflex: present at 60 ccs balloon distention Response to coughing: normal (cough elicits a pressure greater than or equal to double the resting pressure). Dyssynergia evident on push maneuvers. Rectal Sensation: Threshold (NL Value: 30-70): 60mL Urgency (NL Value: 80-130): 200mL Maximum tolerated (NL Value: 130-200): >300mL Balloon expulsion test: >120 seconds in seated position IMPRESSION Findings are consistent with dyssynergic defecation. Resting anal sphincter pressure reflecting internal sphincter function was normal. Maximum squeeze pressures reflecting external sphincter function were weak. Rectal sensation was hyposensitive. Dustin Arce MD, [facility] Section of Gastroenterology and Hepatology [facility] [address] [place] [address] V: [phone] F: [phone] CC/EC: [address] [place] [address] documented in this encounter Plan of Treatment Upcoming Encounters Date Type Department Care Team (Late st Contact Info) Description 02/10/2024 1:00 PM EST Office Visit Cardiology at [address] [address] Jaspreet Kinsey MD [facility] [place] [address] documented as of this encounter Visit Diagnoses Diagnosis Altered bowel function Other symptoms involving digestive system documented in this encounter Care Teams Social Welfare Clerk Relationship Specialty Start Date End Date Polo Pearce PA [address] [place] [address] PCP - General Internal Medicine 06/09/21 documented as of this encounter
--- OUTSIDE RECORDS SUMMARY | 2024-01-24 12:29 | XMS_ITS | Encounter Summary ---
Author Organization [facility] Address [facility] [address] Care Team Providers Care Crime Scene Technician Name Role Phone Polo Pearce Primary Care Provider [phone] Encounter Details Date Type Department Care Team [...] No 06/15/2023 Housing Stability Vital Sign Answer Mitchlel e Recorded In the last 12 months, [...] 1:00 PM EST Office Visit Cardiology at [address] [place] [phone] Jaspreet Kinsey MD [facility] [place] [address] documented as of this encounter Visit Diagnoses Not on filedocumented in this encounter Care Teams Crime Scene Technician Relationship Specialty Start Date End Date Polo Pearce PA [address] [place] [address] PCP - General Internal Medicine 06/09/21 documented as of this encounter
--- OUTSIDE RECORDS SUMMARY | 2024-01-24 12:29 | XMS_ITS | Encounter Summary ---
Author Organization [facility] [place] [address] Care Team Providers Care Sales Special Agent Name Role Phone Polo Pearce Primary Care Provider [phone] Reason for Referral * Diagnostic Test (Routine) - Pending Review Specialty Diagnoses / Procedures Referred By Jayant harris Referred To Contact Diagnoses Mesenteric ischemia Procedures Duplex Study Visceral Arteries, Comp Thiago Way MD [facility] [place] [address] [facility] [address], [place] [address] Referral ID Status Reason Start Date Expiration Date Visits Requested Visits Authorized [id number] Pending Review Specialty Service Requested 10/08/2023 10/07/2024 1 1 Encounter Details Date Type Department Care Team (Late st Contact Info) Description 10/08/2023 9:30 AM EDT Office Visit [place] [address] MD [facility] [place] [address] Mesenteric ischemia (Primary Dx) Social History Tobacco Use Types Packs/Day Years Used Date Smoking Tobacco: Never Smokeless Tobacco: Never Alcohol Use Standard Drinks/Week Comments Never 0 (1 standard drink = 0.6 oz pur e alcohol) [facility] Utilities Answer Date Recorded [...] any time in the past 12 m [facility], were you homeless or living in a long term (including now)? No 08/30/2023 IPV Inpatient Questions [...] bloating who underwent an SMA stent with tx back in July 01. Upon returning today [...] , Rfl: fluticasone propionate (FLONASE) 50 mcg/actuation [place], Suspension, 1 spray by Each Nare route [...] Text Report Department: Vascular Surgery Lab Patient: [id number] (LOIDA ROQUE) CPT: 02848 Referring Physician: HARJEET PICKENS Phone: Indications: s/p [...] within mesenteric artery stents may differ from mechoopda arteries, with thresholds for diagnosis of significant stenosis likely being somewhat higher in stented arteries than mechoopda.% To date, there is no evidence based consensus of stent velocity criteria. Therefore, the current interpretation is based on mechoopda artery thresholds. Previous Celiac/Mesenteric Studies: Date SMA PSV EDV Celiac PSV EDV 427 91 679 61 6037/04/29 289 27 431 25 8701/05/28 316 39 100 22 Current Exam 289 [...] 1:00 PM EST Office Visit Cardiology at [address] [place] [phone] Jaspreet Kinsey MD [facility] [place] [address] documented as of this encounter Visit Diagnoses Diagnosis Mesenteric ischemia- Primary Unspecified vascular insufficiency of intestine documented in this encounter Care Teams Sales Special Agent Relationship Specialty Start Date End Date Polo Pearce PA Sb [address] [place] [address] PCP - General Internal Medicine 06/09/21 documented as of this encounter
--- OUTSIDE RECORDS SUMMARY | 2024-01-24 12:29 | XMS_ITS | Encounter Summary ---
[place] [address] Care Team Providers Care Cash Room Clerk Name Role Phone Polo Pearce Primary Care Provider [phone] Reason for Visit * Diagnostic Test (Routine) - Closed Specialty Diagnoses / Procedures Referred By Jayant harris Referred To Contact Radiology Diagnoses Nausea without vomiting Early satiety Procedures NM Gastric Emptying Scan Mary Reyes HEATING AND REFRIGERATION INSPECTOR [facility] [place] [address] [place] [address] Referral ID Status Reason Start Date Expiration Date V isits Requested Visits Authorized [id number] Closed Specialty Service Requested 08/25/2023 02/23/2025 1 1 Encounter Details Date Type Department Care Team (Latest Contact Info) Description 10/21/2023 9:03 AM EDT - 10/21/2023 11:59 PM EDT Hospital Encounter [place] [address] [place] [address] Discharge Disposition: Home Social History Tobacco Use [...] any time in the past 12 m [facility], were you homeless or living [...] as needed. fluticasone propionate (FLONASE) 50 mcg/actuation [place], Suspension 1 spray by Each Nare route [...] 1:00 PM EST Office Visit Cardiology at [address] [place] [phone] Jaspreet Kinsey MD [facility] [place] [address] documented as of this encounter Procedures Procedure Name Priority Date/Time Associated Diagnosis Comments NM GASTRIC EMPTYING SCAN Routine 10/21/2023 1:54 PM EDT Nausea without vomiting Early satiety documented in this encounter Results * NM Gastric Emptying Scan (10/21/2023 1:54 PM EDT) WORKSTATION ID [id number] RAD Anatomical Region Laterality Modality Nuclear Medicine [...] have questions please contact the health rn acute care that requested your imaging first. ? Electronically signed by: Humberto Qureshi MD, [facility] ([phone]), at 10/21/2023 5:16 PM Narrative 10/21/2023 5:16 [...] who have questions please contactthe health rn acute care that requested your imaging first. Mary Reyes HEATING AND REFRIGERATION INSPECTOR IMG NM ORDERABLES documented in this encounter Visit Diagnoses Not on filedocumented in this encounter Care Teams Cash Room Clerk Relationship Specialty Start Date End Date Polo Pearce PA [address] [place] [address] PCP - General Internal Medicine 06/09/21 documented as of this encounter
--- OUTSIDE RECORDS SUMMARY | 2024-01-24 12:30 | XMS_ITS | Encounter Summary ---
Author Organization [facility] [place] [address] Care Team Providers Care Shrimp Cleaner Name Role Phone Polo Pearce Primary Care Provider [phone] Encounter Details Date Type Department Care Team (Late st Contact Info) Description 08/28/2023 [place] [phone] [place] [address] Social History Tobacco Use Types Packs/Day Years Used Date Smoking Tobacco: Never Smokeless Tobacco: Never Alcohol Use Standard Drinks/Week Comments Never 0 (1 standard drink = 0.6 oz pur e alcohol) [facility] Utilities Answer Date Recorded In the past 12 months has e [employer], gas, oil, or water [employer] threatened to shut off services in your [...] (EKG portion showing diffuse ST-D) [facility]I, [...] a slight decrease in LV systolic function. [facility] 04/2023 Coronary Angiography: Dominance: Right [...] 1:00 PM EST Office Visit Cardiology at [address] [place] [address] Jaspreet Kinsey MD [facility] [place] [address] documented as of this encounter Visit Diagnoses Not on filedocumented in this encounter Care Teams Shrimp Cleaner Relationship Specialty Start Date End Date Polo Pearce PA [address] [place] [address] PCP - General Internal Medicine 06/09/21 documented as of this encounter
--- OUTSIDE RECORDS SUMMARY | 2024-01-24 12:30 | XMS_ITS | Encounter Summary ---
Author Organization [facility] Address [facility] [place] [address] Care Team Providers Care Claims Configuration Analyst Name Role Phone Polo Pearce Primary Care Provider [phone] Encounter Details Date Type Department Care Team [...] th e electric, gas, oil, or water elicit threatened to shut off services in your [...] 1:00 PM EST Office Visit Cardiology at [address] [place] [address] Jaspreet Kinsey MD [facility] [place] [address] documented as of this encounter Visit Diagnoses Not on filedocumented in this encounter Care Teams Claims Configuration Analyst Relationship Specialty Start Date End Date Polo Pearce PA [address] [place] [address] PCP - General Internal Medicine 06/09/21 documented as of this encounter
--- OUTSIDE RECORDS SUMMARY | 2024-01-24 12:30 | XMS_ITS | Encounter Summary ---
[place] [address] Care Team Providers Care Structural Metal Worker Name Role Phone Polo Pearce Primary Care Provider [phone] Reason for Referral * Consultation (Routine) - Authorized Specialty Diagnoses / Procedures Referred By Jayant harris Referred To Contact Cardiology Diagnoses NSTEMI (non-ST elevated myocardial infarction) Lloyd Keating MD [facility] [place] [address] [address] [place] [address] Referral ID Status Reason Start Date Expiration Date Visits Requested Visits Authorized [id number] Authorized Consult, Test & Treat Non PCP 09/10/2023 2024 36 36 Reason for Visit * Auth/Cert (Routine) Specialty Diagnoses / Procedures Referred By Contjulita t Referred To Contact Diagnoses NSTEMI (non-ST elevated myocardial infarction) NSTEMI Procedures EMERGENCY MICHELLEI Archie Mcmanus MD [facility] [place] [address] [facility] Referral ID Status Reason Start Date Expiration Date Visits Re quested Visits Authorized [id number] 1 1 Encounter Details Date Type Department Care Team (Latest Contact Info) Description 08/28/2023 8:27 PM EDT - 09/10/2023 5:31 PM EDT Hospital Encounter Heart and Vascular Unit Level 3 Wing B at [place] [phone] Kia Angelo MD [facility] [place] [address] [place] [address] Eufemia Copeland MD [facility] [place] [address] [place] [address] Samantha Broussard MD Kussaga, Frank [place], [place] [address] Paresthesia of hand, bilateral; SVT (supraventricular tachycardia); [...] has e electric, gas, oil, or water [facility] threatened to shut off services in your [...] any time in the past 12 m [facility], were you homeless or living [...] Loida Madrigal Patient Age: 53 y.o. Language: Gabonese Race: White Ethnicity: Not nor Admit date: [...] please contact your inpatient physician through the [facility] Plaster Applicator . Issues afterhours and on weekends will [...] 09/05/2023 4:25 PM) Result Value WORKSTATION ID [id number] Narrative EXAMINATION: CTA/CT ABDOMEN AND PELVIS W [...] who have questions please contact the health managed care provider that requested your imaging first. Electronically signed by: Lalitha Sanders MD, [facility] ([phone]), at 09/06/2023 9:47 AM TTE 08/29/23 Interpretation [...] treatment for possible ACS, and transfer to [facility] for further management. Prior to transfer, patient [...] 274 Last 3 Lytes Recent Labs 09/10/2341609/09/23 0510 09/08/23 022 NA 138 137 139 K 4.1 3.6 3.6 CL 103 100 103 CO2 24 BUN 27* 22* 19* CREATININE 1.39* [...] 168 hours. Last 3 TFT Recent Labs 06/15/23 04204/17/23 0333 02/08/23 2208 TSH 2.98 5.93* 4.00 Last 3 Lipids Recent Labs 08/28/23210606/16/23 0330 04/18/23 021 CHLPL 203 190 173 HDL 52 [...] Administered Date(s) Administered Moderna Covid-19 Monovalent 12Yr+ (Senior Interactive Producer 100mcg) 03/06/2020, 04/03/2020 Discharge Medications: Your Medications [...] weight gain + increasing shortness of breath. [id number] minutes prior to a dose of torsemide). [...] of 8AM-5PM please call the Cardiology Clinic [phone] to speak with a nurse. All other hours please call the Hospital Plaster Applicator [phone] and ask to speak to the cardiovascular hospitalist on-call. Follow up Appointments: Doctor Where Phone # Date Time PCP JOCY Franco Dr [address] [place], [place] [id number] Please call to set up a follow up appointment. Cardiology Jaspreet Kinsey MD Cardiology at [place] Arrive at: [facility] [address] [phone] 10/26/2023 4:00 PM General Instructions None Future Appointments and Orders Future Appointments and Orders Future Appointments Provider Department Dept Phone 10/21/2023 10:30 AM [facility] ROOM 1 Nuclear Medicine at [facility] Arrive at: [facility] RADIOLOGY [phone] Please do not eat or drink anything for at least 6 hours prior to your appointment. 10/21/2023 11:30 AM [facility] ROOM 1 Nuclear Medicine at [facility] Arrive at: [facility] RADIOLOGY [phone] Please do not eat or drink anything for at least 6 hours prior to your appointment. 10/21/2023 12:30 PM [facility] ROOM 1 Nuclear Medicine at [facility] Arrive at: [facility] RADIOLOGY [phone] Please do not eat or drink anything for at least 6 hours prior to your appointment. 10/21/2023 1:30 PM [facility] ROOM 1 Nuclear Medicine at [facility] Arrive at: [facility] RADIOLOGY [phone] Please do not eat or drink anything for at least 6 hours prior to your appointment. 10/21/2023 2:30 PM [facility] ROOM 1 Nuclear Medicine at [facility] Arrive at: [facility] RADIOLOGY [phone] Please do not eat or drink anything for at least 6 hours prior to your appointment. 10/26/2023 4:00 PM Jaspreet Kinsey MD Cardiology at [place] Arrive at: [facility] [address] [phone] 10/28/2023 9:00 AM [facility] 2 Gastroenterology at [facility] Arrive at: Family [facility] Consumer Education Teacher Area 4T [phone] 10/29/2023 10:00 AM [facility] 2 Gastroenterology at [facility] Arrive at: Family [employer] Consumer Education Teacher Area 4T [phone] 10/29/2023 10:15 AM [facility] 2 Gastroenterology at [facility] Arrive at: Family And Consumer Education Teacher Area 4T [phone] 11/22/2023 4:40 PM Porsha Mcdaniels MD Cardiology at [facility] Arrive at: Family [facility] Consumer Education Teacher Area 4A [phone] 12/13/2023 10:[address] Gastroenterology at [facility] Arrive at: Family And Consumer Education Teacher Area 4L [phone] Discharge References/Attachments None Greater than 30 minutes was spent on this discharge including documentation, [id number] time withthe patient, patient education, telephone recorder, coordination with pharmacy and other patient [...] of 8AM-5PM please call the Cardiology Clinic [phone] to speak with a nurse. All other hours please call the Hospital Plaster Applicator [phone] and ask to speak to the cardiovascular hospitalist on-call. Follow up Appointments: Doctor Where Phone # Date Time PCP JOCY Franco [address] Arellano [address] [place] [address] [phone] Please call to set up a follow up appointment. Cardiology Jaspreet Kinesy MD Cardiology at [place] Arrive at: [facility] [address] [phone] 10/26/2023 4:00 PM documented in this encounter [...] as needed. fluticasone propionate (FLONASE) 50 mcg/actuation [place], Suspension 1 spray by Each Nare route [...] for 30 days. 60 tablet 09/10/2023 10/10/2023 metoproloL tartrate (Lopressor) 25 mg tablet Take [...] needed. 10/26/2023 documented as of this encounter Progress Notes [...] note were not included. Heart and Vascular [place] Cardiovascular Medicine CV HOSPITALIST 1 - [facility] DAILY PROGRESS NOTE Page [phone] to reach a provider 28/09 Admit Date: [...] hest pain, found to have transferred to [facility] for further management of NSTEMI. Patient found [...] ointment Diet: Daily Healthy Menu Choices/Cardiac diet ([facility]-Diet) DVT Prophylaxis: DOAC Code status: Attempt Cardiopulmonary Resuscitation - Inpatient Disposition: Discharge Location: AM-[facility] Basic Mobility Raw Score: 19 PT: OT: PCP JOCY Franco [phone] Lloyd Keating MD 09/09/2023 * Florencia Ortez [...] or weekly) [] Other NONE * Edith Cahndler RCP - 09/09/2023 7:18 AM EDT Respiratory [...] continue to monitor and support as tolerated. Ediht [place] RCP * Lloyd Keating MD - 09/08/2023 9:15 AM EDT Images from the original note were not included. Heart and Vascular [facility] Cardiovascular Medicine CV HOSPITALIST 1 - [facility] DAILY PROGRESS NOTE Page [phone] to [...] hest pain, found to have transferred to [facility] for further management of NSTEMI. Patient found [...] ointment Diet: Daily Healthy Menu Choices/Cardiac diet ([facility]-Diet) DVT Prophylaxis: DOAC Code status: Attempt Cardiopulmonary Resuscitation - Inpatient Disposition: Discharge Location: AM-P[facility] Basic Mobility Raw Score: 24 PT: OT: PCP JOCY Franco [phone] Lloyd Keating MD 09/08/2023 * Edith [place] [...] Center Cardiovascular Medicine CV HOSPITALIST 1 - [facility] DAILY PROGRESS NOTE Page [phone] to reach a provider 28/09 Admit Date: [...] Weight 09/07/23 0556 101.2 kg (223 lb) 09/06/23 [...] hest pain, found to have transferred to [facility] for further management of NSTEMI. Patient found [...] ointment Diet: Daily Healthy Menu Choices/Cardiac diet ([facility]-Diet) DVT Prophylaxis: DOAC Code status: Attempt Cardiopulmonary Resuscitation - Inpatient Disposition: Discharge Location: [facility] Basic Mobility Raw Score: 24 PT: OT: PCP JOCY Franco [phone] Lloyd Keating MD 09/07/2023 * Dona Hanks [...] nocturnal NIV. Will continue to support. Dona Hakns RCP * Marion Trevizo RCP - 09/06/2023 [...] Center Cardiovascular Medicine CV HOSPITALIST 1 - [facility] DAILY PROGRESS NOTE Page [phone] to reach a provider 28/09 Admit Date: [...] hest pain, found to have transferred to [facility] for further management of NSTEMI. Patient found [...] ointment Diet: Daily Healthy Menu Choices/Cardiac diet ([facility]-Diet) DVT Prophylaxis: DOAC Code status: Attempt Cardiopulmonary Resuscitation - Inpatient Disposition: Discharge Location: AM-PAC Basic Mobility Raw Score: 24 PT: OT: PCP Polo Ramses, [place] [phone] Lloyd Keating MD 09/06/2023 * Channing Montanez [...] at OSH with chest pain, transferred to [facility] for further management of NSTEMI. On arrival, [...] Lab request Result Value Ref Range [facility] Lab Result Request received in lab. Hemogram [...] chest pain, found to have transferred to [facility] for further management of NSTEMI. Patient found [...] ointment Diet: Daily Healthy Menu Choices/Cardiac diet ([facility]-Diet) DVT Prophlaxis: DOAC Code status: Attempt Cardiopulmonary [...] screened for hospital length of stay and keno writer / runner met patient at bedside. Patient states thattheir [...] Orders Diet Daily Healthy Menu Choices/Cardiac diet ([facility]) Frequency: Effective Now Number of Occurrences: Until [...] unless consulted in the interim. LORNA Berrios Distillery Worker General * Samantha Broussard MD - 09/04/2023 8:35 [...] at OSH with chest pain, transferred to [facility] for further management of NSTEMI. On arrival, [...] found to have elevated NSTEMI, transferred to [facility] for further management of NSTEMI. Patient found [...] ointment Diet: Daily Healthy Menu Choices/Cardiac diet ([facility]-Diet) DVT Prophlaxis: DOAC Code status: Attempt Cardiopulmonary [...] found to have elevated NSTEMI, transferred to [facility] for further management of NSTEMI. Patient found [...] ointment Diet: Daily Healthy Menu Choices/Cardiac diet ([facility]-Diet) DVT Prophlaxis: DOAC Code status: Attempt Cardiopulmonary [...] found to have elevated NSTEMI, transferred to [facility] for further management of NSTEMI. Patient found [...] neurontin Diet: Daily Healthy Menu Choices/Cardiac diet ([facility]-Diet) DVT Prophlaxis: DOAC Code status: Attempt Cardiopulmonary Resuscitation - Inpatient Lorna Herr MD 09/02/2023 * Calista Hernandez, RT - 09/02/2023 1:01 AM EDT Respiratory [...] found to have elevated NSTEMI, transferred to [facility] for further management of NSTEMI. Patient found [...] neurontin Diet: Daily Healthy Menu Choices/Cardiac diet ([facility]-Diet) DVT Prophlaxis: DOAC Code status: Attempt Cardiopulmonary [...] 7:25 AM EDT CV HOSPITALIST 1 - [facility] DAILY PROGRESS NOTE Page [phone] to reach a provider 28/09 Admit Date: [...] found to have elevated NSTEMI, transferred to [facility] for further management of NSTEMI. Patient found [...] duloxetine Diet: Daily Healthy Menu Choices/Cardiac diet ([facility]-Diet) DVT Prophlaxis: DOAC Code status: Attempt Cardiopulmonary Resuscitation - Inpatient Disposition: Discharge Planning: AM-PAC Basic Mobility Raw Score: 19 PT: OT: PCP JOCY Franco [phone] * Mary Castaneda RCP - 08/31/2023 5:18 [...] 9:11 PM EDT CV HOSPITALIST 1 - [facility] DAILY PROGRESS NOTE Page [phone] to reach a provider 28/09 Admit Date: [...] Labs: Recent Labs 08/30/23 0309 08/29/23 0401 08/28/23 210 WBC 7.8 8.0 6.8 HGB 10.5* 12.6 14.1 HCT 31.8* 37.6 42.2 PLATELET 176 197 234 MCV 95.2* 96.2* 96.1* Recent Labs 08/30/23 0309 08/29/23 0401 08/28/23 2107 08/25/23 1128 NA 145 141 140 140 CL 114* 107 105 99 CO2 * 22 21* 29 K 3.7 3.5 3.5 3.6 MAGNESIUM 0.74 -- 1.05 -- CALCIUM 7.1* 8.8 9.3 10.0 BUN 16 * 22* 29* CREATININE 1.03 1.18 1.13 1.41* Coags No results for input(s): INR, PT, PTT, DDIMER in the last 168 hours. Cardiac Markers Recent Labs 08/29/23 0031 08/28/23 210 TROPONINTHS 31* 31* PROBNP -- 2,854* Endocrine Recent Labs 06/15/23 0428 04/18/23 0210 04/17/23 0333 02/08/23 2208 TSH 2.98 -- 5.93* 4.00 HA1C -- 5.6 -- -- Recent Labs 08/28/232106 CHLPL 203 TRIG 146 HDL 52 LDLCHOL 122 Recent Labs 08/30/23 0309 08/29/23 0401 08/28/23 2107 GLUCOSE 99 106 95 Telemetry: I have [...] found to have elevated NSTEMI, transferred to [facility] for further management of NSTEMI Plan: #Acute [...] duloxetine Diet: Daily Healthy Menu Choices/Cardiac diet ([facility]-Diet) DVT Prophlaxis: DOAC Code status: Attempt Cardiopulmonary Resuscitation - Inpatient Disposition: Discharge Planning: AM-PAC Basic Mobility Raw Score: 19 PT: OT: PCP JOCY Franco [phone] * Neli Alcantar RN - 08/29/2023 3:25 [...] 7:07 AM EDT CV HOSPITALIST 1 - [facility] DAILY PROGRESS NOTE Page [phone] to reach a provider 28/09 Admit Date: [...] MCV 96.2* 96.1* Recent Labs 08/29/23 0401 08/28/23210608/25/23 1128 NA 141 140 140 CL 107 [...] found to have elevated NSTEMI, transferred to [facility] for further management of NSTEMI Plan: #Acute [...] duloxetine Diet: Daily Healthy Menu Choices/Cardiac diet ([facility]-Diet) DVT Prophlaxis: heparin gtt Code status: Attempt Cardiopulmonary Resuscitation - Inpatient Disposition: Discharge Planning: AM-PAC Basic Mobility Raw Score: 19 PT: OT: PCP JOCY Franco [phone] documented in this encounter H&P Notes * [...] treatment for possible ACS, and transfer to [facility] for further management. Prior to transfer, patient [...] 3.56) performed by Lashonda Villa MD at [facility] ENDOSCOPY PRO UPPER GI ENDOSCOPY, BIOPSY N/A 07/07/2023 EGD WITH BIOPSY (WRVU 2.39) performed by Lashonda Villa MD at [facility] ENDOSCOPY VS ARTERIOGRAM MESENTERIC VASCULAR SURGERY 07/02/2023 VS Arteriogram Mesenteric Vascular Surgery 07/02/[address] MD [facility] INTERVENTIONL RAD Prior To Admission Medications: Medications [...] as needed. 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 Accessibility Concerns:2 story home w/ 5 ADAN and ramp; bedroom on second level. Current Functional Ability: Independent DME used at home: ramp, respiratory supplies, other (see comments) (BiPAP through [facility]) DME Needed at Discharge: N/A Patient is insured through: Primary Insurance: [employer] [place] [employer] [place] / Plan[place] / [...] room and in hallway. PLAN MOVING FORWARD: Juane CARE PLAN GOAL OUTCOME EVALUATION: Problem: Adult [...] Accessibility Concerns: 2 story home w/ 5 ADAN and ramp; bedroom on second level. Current Functional Ability: Independent DME used at home: ramp, respiratory supplies, other (see comments) (BiPAP through [employer] DME Needed at Discharge: No Patient is insured through: Primary Insurance: [employer] [place]: [employer] [place] / Plan: [employer] [place] EX[place] / Product Type: *No Product [...] Pt will be receiving Cardiac rehab at [facility] post discharge. D/c plan pending clinical [...] in an outpatient cardiac rehabilitation program at [facility] was discussed. Patient agrees to a [...] From: Transfer from another hospital Location: [facility] Reason for Hospitalization: overall not feeling [...] home/apartment/condo. Accessibility Concerns:2 story home w/ 5 ADAN and ramp; bedroom on second level. In the last 12 months, was there a time when you were not able to pay the mortgage or rent on time?: No In the past 12 months, how many times have you moved where you were living?: 1 At any time in the past 12 months, were you homeless or living in a nursing home (including now)?: No In the past 12 months has the [employer], gas, oil, or water [facility] threatened to shut off services in your [...] respiratory supplies, other (see comments) (BiPAP through [employer]) Home Address confirmed as: [address] [place] [address] Social & Family Supports: All names listed [...] Specific Information: N/A Health/Prescription Coverage: Primary Insurance: [employer] [place] Payor: [employer] [facility] [place] / Plan: [facility] [place] / Product Type: *No Product type* / Secondary Insurance: N/A Prescription Coverage: Yes Preferred Pharmacy: [facility] [address] [place], [place] - [address] [facility] [address] [facility] [address] [facility] - [place], [place] - [address] [facility] [address] Cyril Status: Patient is a : No Primary Care Provider confirmed: JOCY Franco [phone] Patient/Caregiver Goals of Treatment: home when MR [...] not included. [facility] [place] [address] INPATIENT CARDIOLOGY CONSULT NOTE Reason for Consult: Chest pain HPI: Loida Madrigal is a 53 y.o. obese female, history of non-obstructive CAD ([facility] 04/2023) with suspicion for microvascular dysfunction [...] 1:00 PM EST Office Visit Cardiology at [place] [address] [place] [address] Jaspreet Kinsey MD [facility] [place] [address] Scheduled Orders Name Type Priority Associated Diagnoses [...] 4:17 AM EDT) Neutrophil % 54.4 % [facility] Neutrophil Absolute 4.17 1.70 - 6.10 x10(3)/[facility] LABORATORY Lymph % 33.2 % [facility] Lymphocytes Abs 2.5 0.9 - 3.2 x10(3)/[facility] LABORATORY Monocyte % 8.4 % [facility] Monocyte Abs 0.6 0.3 - 0.9 x10(3)/[facility] LABORATORY Eos % 3.0 % [facility] Eosinophils Abs 0.2 0.0 - 0.4 x10(3)/[facility] LABORATORY Basophil % 0.7 % [facility] Baso Absolute 0.0 0.0 - 0.1 x10(3)/[facility] LABORATORY Immature Gran % 0.30 % [facility] Comment: Immature granulocytes(IG's)percentage and absolute count will include metamyelocytes, myelocytes, and promyelocytes. Blood smears from CBCs yielding IG's will be scanned manually for concordance. If this scan disagrees with the automated IG or if promyelocytes are noted, a manual differential will be performed. Immature Gran Absolute 0.02 0.00 - 0.04 x10(3)/[facility] LABORATORY Blood 09/10/2023 4:17 AM EDT 09/10/2023 4:29 AM EDT Narrative Resulting Agency Comment Spec In Lab Eufemia Copeland MD HEMATOLOGY ORDERAB LES [facility] [place] [address] * (ABNORMAL) Hemogram (09/10/2023 4:17 AM EDT) White Blood Cell 7.6 4.0 - 9.5 x10(3)/mc [facility] Red Blood Cell 4.15 4.00 - 5.21 x10(6)/mc L [facility] Hemoglobin 13.0 11.7 - 15.5 g/dL [facility] Hematocrit 39.2 35.7 - 45.8 % [facility] Mean Cell Volume 94.5(H) 82.6 - 94.4 fL [facility] Mean Cell Hemoglobin 31.3 27.1 - 32.0 pg [facility] Mean Cell Hemoglobin Concentration 33.2 31.7 - 35.0 g/dL [facility] Platelet 267 145 - 357 x10(3)/mc [facility] RDW Standard Deviation 44.6 37.0 - [address] [facility]ORAT[facility] RDW coefficient of variation 13.1 11.5 - 14.1 % [facility] Mean Platelet Volume 10.3 7.6 - 12.9 fL [facility] NRBC% auto 0.0 % [facility] NRBC Absolute 0.000 0.000 - 0.000 x10(3)/mc L [facility] Blood 09/10/2023 4:17 AM EDT 09/10/2023 4:29 AM EDT Narrative Resulting Agency Comment Spec In Lab Eufemia Copeland MD HEMATOLOGY ORDERAB LES [facility] [place] [address] * (ABNORMAL) Basic Metabolic Panel (non-fasting) (09/10/2023 4:17 AM EDT) Glucose 92 65 - 199 mg/dL [facility] [...] MD CHEMISTRY ORDERABL ES Performing Organization Address City/[facility]/ZIP Co de Phone Number [facility] [place] [address] * Magnesium (09/10/2023 4:17 AM EDT) Pathologist [facility] Magnesium 0.99 0.69 - 1.07 mmol/L [facility] Blood 09/10/2023 4:17 AM EDT 09/10/2023 4:29 AM EDT Narrative Resulting Agency Comment Spec In Lab Eufemia Copeland MD CHEMISTRY ORDERABL ES Performing Organization Address [facility] Co de Phone Number [facility] [place] [address] * Differential, Automated (09/09/2023 5:10 AM EDT) [facility] Neutrophil % 54.1 % [facility] Neutrophil Absolute 4.00 1.70 - 6.10 x10(3)/[facility] LABORATORY Lymph % 31.7 % [facility] Lymphocytes Abs 2.3 0.9 - 3.2 x10(3)/[facility] LABORAT[facility] Monocyte % 9.5 % [facility] Monocyte Abs 0.7 0.3 - 0.9 x10(3)/[facility] LABORATORY Eos % 3.5 % [facility] Eosinophils Abs 0.3 0.0 - 0.4 x10(3)/[facility] LABORATORY Basophil % 0.8 % [facility] Baso Absolute 0.1 0.0 - 0.1 x10(3)/[facility] LABORATORY Immature Gran % 0.40 % [facility] Comment: Immature granulocytes(IG's)percentage and absolute count will include metamyelocytes, myelocytes, and promyelocytes. Blood smears from CBCs yielding IG's will be scanned manually for concordance. If this scan disagrees with the automated IG or if promyelocytes are noted, a manual differential will be performed. Immature Gran Absolute 0.03 0.00 - 0.04 x10(3)/mcL [facility] Blood 09/09/2023 5:10 AM EDT 09/09/2023 5:19 AM EDT Narrative Resulting Agency Comment Spec In Lab Eufemia Copeland MD HEMATOLOGY ORDERAB LES [facility] [place] [address] * (ABNORMAL) Hemogram (09/09/2023 5:10 AM EDT) White Blood Cell 7.4 4.0 - 9.5 x10(3)/[facility] Red Blood Cell 4.09 4.00 - 5.21 x10(6)/[facility] Hemoglobin 13.0 11.7 - 15.5 g/dL [facility] Hematocrit 39.2 35.7 - 45.8 % [facility] Mean Cell Volume 95.8(H) 82.6 - 94.4 fL [facility] Mean Cell Hemoglobin 31.8 27.1 - 32.0 pg [facility] Mean Cell Hemoglobin Concentration 33.2 31.7 - 35.0 g/dL [facility] Platelet 267 145 - 357 x10(3)/[facility] RDW Standard Deviation 45.3 37.0 - 46.0 [facility] RDW coefficient of variation 12.9 11.5 - 14.1 % [facility] Mean Platelet Volume 9.9 7.6 - 12.9 fL [facility] NRBC% auto 0.0 % [facility] NRBC Absolute 0.000 0.000 - 0.000 x10(3)/[facility] Blood 09/09/2023 5:10 AM EDT 09/09/2023 5:19 AM EDT Narrative Resulting Agency Comment Spec In Lab Eufemia Copeland MD HEMATOLOGY ORDERAB LES [facility] [place] [address] * (ABNORMAL) Basic Metabolic Panel (non-fasting) (09/09/2023 5:10 AM EDT) Glucose 97 65 - 199 mg/dL [facility] [...] ORDERABL ES Performing Organization Address [facility] Co de Phone Number [facility] [place] [address] * Magnesium (09/09/2023 5:10 AM EDT) Magnesium 0.97 0.69 - 1.07 mmol/L [facility] Blood 09/09/2023 5:10 AM EDT 09/09/2023 5:19 AM EDT Narrative Resulting Agency Comment Spec In Lab Eufemia Copeland MD CHEMISTRY ORDERABL ES Performing Organization Address [facility] de Phone Number [facility] [place] [address] * EKG 12 Lead (09/08/2023 4:01 AM EDT) Ventricular rate 59 BPM MUSE SYSTEM Atrial Rate 59 BPM MUSE SYSTEM P-R Interval 192 ms MUSE SYSTEM QRS Duration 92 ms MUSE SYSTEM Q-T Interval 452 ms MUSE SYSTEM QTC Calculated (Bezet) 447 ms MUSE SYSTEM Calculated P [place] 38 degrees MUSE SYSTEM Calculated R [place] 51 degrees MUSE SYSTEM Calculated T [place] -18 degrees MUSE SYSTEM INTERPRETATION Sinus bradycardia Diffuse ST depression, consider subendocardial injury Abnormal ECG When compared with ECG of 03-SEP-2023 06:02, Premature atrial complexes are no longer Present QT has shortened I personally reviewed the tracing and edited the fellows interpretation Confirmed by fellow Vito Pearce ([id number]) on 09/08/2023 7:40:32 AM Confirmed by MD Angelo Danette ([id number]) on 09/08/2023 2:12:57 PM MUSE SYSTEM 09/08/2023 4:01 AM EDT 09/08/2023 2:12 PM EDT Eufemia Copeland MD ECG ORDERABLES MUSE SYSTEM * Differential, Automated (09/08/2023 2:22 AM EDT) Pathologist [facility] Neutrophil % 55.2 % [facility] Neutrophil Absolute 4.74 1.70 - 6.10 x10(3)/[facility] Lymph % 30.8 % [facility] Lymphocytes Abs 2.6 0.9 - 3.2 x10(3)/[facility] Monocyte % 9.5 % [facility] Monocyte Abs 0.8 0.3 - 0.9 x10(3)/[facility] Eos % 3.6 % [facility] Eosinophils Abs 0.3 0.0 - 0.4 x10(3)/[facility] Basophil % 0.5 % [facility] Baso Absolute 0.0 0.0 - 0.1 x10(3)/[facility] Immature Gran % 0.40 % [facility] Comment: Immature granulocytes(IG's)percentage and absolute count will include metamyelocytes, myelocytes, and promyelocytes. Blood smears from CBCs yielding IG's will be scanned manually for concordance. If this scan disagrees with the automated IG or if promyelocytes are noted, a manual differential will be performed. Immature Gran Absolute 0.03 0.00 - 0.04 x10(3)/[facility] Blood 09/08/2023 2:22 AM EDT 09/08/2023 2:37 AM EDT Narrative Resulting Agency Comment Spec In Lab Eufemia Copeland MD HEMATOLOGY ORDERAB LES [facility] [place] [address] * (ABNORMAL) Hemogram (09/08/2023 2:22 AM EDT) [facility] White Blood Cell 8.6 4.0 - 9.5 x10(3)/ L [facility] Red Blood Cell 3.98(L) 4.00 - 5.21 x10(6)/ L [facility] Hemoglobin 12.8 11.7 - 15.5 g/dL [facility] Hematocrit 37.4 35.7 - 45.8 % [facility] Mean Cell Volume 94.0 82.6 - 94.4 fL [facility] Mean Cell Hemoglobin 32.2(H) 27.1 - 32.0 pg [facility] Mean Cell Hemoglobin Concentration 34.2 31.7 - 35.0 g/dL [facility] Platelet 274 145 - 357 x10(3)/[facility] RDW Standard Deviation 44.5 37.0 - 46.0 fL [facility] RDW coefficient of variation 12.9 11.5 - 14.1 % [facility] Mean Platelet Volume 10.4 7.6 - 12.9 fL [facility] NRBC% auto 0.0 % [facility] NRBC Absolute 0.000 0.000 - 0.000 x10(3)/[facility] Blood 09/08/2023 2:22 AM EDT 09/08/2023 2:37 AM EDT Narrative Resulting Agency Comment Spec In Lab Eufemia Copeland MD HEMATOLOGY ORDERAB LES [facility] [place] [address] * (ABNORMAL) Basic Metabolic Panel (non-fasting) (09/08/2023 2:22 AM EDT) [facility] Glucose 98 65 - 199 mg/dL [facility] [...] ORDERABL ES [facility] [place] [address] * Magnesium (09/08/2023 2:22 AM EDT) Magnesium 0.91 0.69 - 1.07 mmol/L [facility] Blood 09/08/2023 2:22 AM EDT 09/08/2023 2:37 AM EDT Narrative Resulting Agency Comment Spec In Lab Eufemia Copeland MD CHEMISTRY ORDERABL ES Performing Organization Address City/[facility]/ZIP Co de Phone Number [facility] [place] [address] * Differential, Automated (09/07/2023 2:56 AM EDT) Neutrophil % 52.3 % [facility] Neutrophil Absolute 3.74 1.70 - 6.10 x10(3)/[facility] Lymph % 33.8 % [facility] Lymphocytes Abs 2.4 0.9 - 3.2 x10(3)/[facility] Monocyte % 9.4 % [facility] Monocyte Abs 0.7 0.3 - 0.9 x10(3)/[facility] Eos % 3.6 % [facility] Eosinophils Abs 0.3 0.0 - 0.4 x10(3)/[facility] Basophil % 0.6 % [facility] Baso Absolute 0.0 0.0 - 0.1 x10(3)/[facility] Immature Gran % 0.30 % [facility] Comment: Immature granulocytes(IG's)percentage and absolute count will include metamyelocytes, myelocytes, and promyelocytes. Blood smears from CBCs yielding IG's will be scanned manually for concordance. If this scan disagrees with the automated IG or if promyelocytes are noted, a manual differential will be performed. Immature Gran Absolute 0.02 0.00 - 0.04 x10(3)/[facility] Blood 09/07/2023 2:56 AM EDT 09/07/2023 3:31 AM EDT Narrative Resulting Agency Comment Spec In Lab Eufemia Copeland MD HEMATOLOGY ORDERAB LES [facility] [place] [address] * (ABNORMAL) Hemogram (09/07/2023 2:56 AM EDT) [facility] White Blood Cell 7.2 4.0 - 9.5 x10(3)/[facility] Red Blood Cell 4.16 4.00 - 5.21 x10(6)/[facility] Hemoglobin 13.1 11.7 - 15.5 g/dL [facility] Hematocrit 39.7 35.7 - 45.8 % [facility] Mean Cell Volume 95.4(H) 82.6 - 94.4 fL [facility] Mean Cell Hemoglobin 31.5 27.1 - 32.0 pg [facility] Mean Cell Hemoglobin Concentration 33.0 31.7 - 35.0 g/dL [facility] Platelet 277 145 - 357 x10(3)/[facility] RDW Standard Deviation 45.4 37.0 - 46.0 [facility] RDW coefficient of variation 12.9 11.5 - 14.1 % [facility] Mean Platelet Volume 10.6 7.6 - 12.9 fL [facility] NRBC% auto 0.0 % [facility] NRBC Absolute 0.000 0.000 - 0.000 x10(3)/[facility] Blood 09/07/2023 2:56 AM EDT 09/07/2023 3:31 AM EDT Narrative Resulting Agency Comment Spec In Lab Eufemia Copeland MD HEMATOLOGY ORDERAB LES [facility] [place] [address] * (ABNORMAL) Basic Metabolic Panel (non-fasting) (09/07/2023 2:56 AM EDT) [facility] Glucose 97 65 - 199 mg/dL [facility] [...] ORDERABL ES [facility] [place] [address] * Magnesium (09/07/2023 2:56 AM EDT) Magnesium 0.96 0.69 - 1.07 mmol/L [facility] Blood 09/07/2023 2:56 AM EDT 09/07/2023 3:31 AM EDT Narrative Resulting Agency Comment Spec In Lab Eufemia Copeland MD CHEMISTRY ORDERABL ES [facility] [place] [address] * Differential, Automated (09/06/2023 2:44 AM EDT) [facility] Neutrophil % 53.7 % [facility] Neutrophil Absolute 4.01 1.70 - 6.10 x10(3)/[facility] Lymph % 32.0 % [facility] Lymphocytes Abs 2.4 0.9 - 3.2 x10(3)/[facility] Monocyte % 10.0 % [facility] Monocyte Abs 0.8 0.3 - 0.9 x10(3)/[facility] Eos % 3.2 % [facility] Eosinophils Abs 0.2 0.0 - 0.4 x10(3)/[facility] Basophil % 0.7 % [facility] Baso Absolute 0.0 0.0 - 0.1 x10(3)/[facility] Immature Gran % 0.40 % [facility] Comment: Immature granulocytes(IG's)percentage and absolute count will include metamyelocytes, myelocytes, and promyelocytes. Blood smears from CBCs yielding IG's will be scanned manually for concordance. If this scan disagrees with the automated IG or if promyelocytes are noted, a manual differential will be performed. Immature Gran Absolute 0.03 0.00 - 0.04 x10(3)/[facility] Blood 09/06/2023 2:44 AM EDT 09/06/2023 2:58 AM EDT Narrative Resulting Agency Comment Spec In Lab Eufemia Copeland MD HEMATOLOGY ORDERAB LES [facility] [place] [address] * Hemogram (09/06/2023 2:44 AM EDT) White Blood Cell 7.5 4.0 - 9.5 x10(3)/[facility] Red Blood Cell 4.26 4.00 - 5.21 x10(6)/[facility] Hemoglobin 13.6 11.7 - 15.5 g/dL [facility] Hematocrit 40.2 35.7 - 45.8 % [facility] Mean Cell Volume 94.4 82.6 - 94.4 fL [facility] Mean Cell Hemoglobin 31.9 27.1 - 32.0 pg [facility] Mean Cell Hemoglobin Concentration 33.8 31.7 - 35.0 g/dL [facility] Platelet 274 145 - 357 x10(3)/[facility] RDW Standard Deviation 44.3 37.0 - 46.0 [facility] RDW coefficient of variation 12.9 11.5 - 14.1 % [facility] Mean Platelet Volume 10.2 7.6 - 12.9 fL [facility] NRBC% auto 0.0 % [facility] NRBC Absolute 0.000 0.000 - 0.000 x10(3)/[facility] Blood 09/06/2023 2:44 AM EDT 09/06/2023 2:58 AM EDT Narrative Resulting Agency Comment Spec In Lab Eufemia Copeland MD HEMATOLOGY ORDERAB LES Performing Organization Address City/[facility]/ZIP Co de Phone Number [facility] [place] [address] * Basic Metabolic Panel (non-fasting) (09/06/2023 2:44 [...] [facility] Est Glomerular Filtration Rate 63 >=60 mL/min/1. 73 m?? [facility] [...] ORDERABL ES [facility] [place] [address] * Magnesium (09/06/2023 2:44 AM EDT) Magnesium 0.95 0.69 - 1.07 mmol/L [facility] Blood 09/06/2023 2:44 AM EDT 09/06/2023 2:58 AM EDT Narrative Resulting Agency Comment Spec In Lab Eufemai Copeland MD CHEMISTRY ORDERABL ES [facility] [address] [place] [address] * CT Abdomen & Pelvis w Contrast (09/05/2023 4:25 PM EDT) [facility] WORKSTATION ID [id number] RAD Anatomical Region Laterality Modality Abdomen, Pelvis [...] who have questions please contact the health managed care provider that requested your imaging first. [...] patients who have questions please contactthe health managed care provider that requested your imaging first. Electronically signed by: Lalitha Sanders MD, [facility]([phone]), at 09/06/2023 9:47 AM Samantha Broussard MD IMG CT ORDERABLES * Differential, Automated (09/05/2023 1:58 AM EDT) Neutrophil % 54.5 % [facility] Neutrophil Absolute 4.32 1.70 - 6.10 x10(3)/[facility] Lymph % 30.5 % [facility] Lymphocytes Abs 2.4 0.9 - 3.2 x10(3)/[facility] Monocyte % 11.4 % [facility] Monocyte Abs 0.9 0.3 - 0.9 x10(3)/[facility] Eos % 2.8 % [facility] Eosinophils Abs 0.2 0.0 - 0.4 x10(3)/[facility] Basophil % 0.5 % [facility] Baso Absolute 0.0 0.0 - 0.1 x10(3)/[facility] Immature Gran % 0.30 % [facility] Comment: Immature granulocytes(IG's)percentage and absolute count will include metamyelocytes, myelocytes, and promyelocytes. Blood smears from CBCs yielding IG's will be scanned manually for concordance. If this scan disagrees with the automated IG or if promyelocytes are noted, a manual differential will be performed. Immature Gran Absolute 0.02 0.00 - 0.04 x10(3)/[facility] Blood 09/05/2023 1:58 AM EDT 09/05/2023 2:13 AM EDT Narrative Resulting Agency Comment Spec In Lab Eufemia Copeland MD HEMATOLOGY ORDERAB LES [facility] [place] [address] * Hemogram (09/05/2023 1:58 AM EDT) White Blood Cell 7.9 4.0 - 9.5 x10(3)/[facility] Red Blood Cell 4.38 4.00 - 5.21 x10(6)/[facility] Hemoglobin 13.7 11.7 - 15.5 g/dL [facility] Hematocrit 40.5 35.7 - 45.8 % [facility] Mean Cell Volume 92.5 82.6 - 94.4 fL [facility] Mean Cell Hemoglobin 31.3 27.1 - 32.0 pg [facility] Mean Cell Hemoglobin Concentration 33.8 31.7 - 35.0 g/dL [facility] Platelet 282 145 - 357 x10(3)/[facility] RDW Standard Deviation 44.0 37.0 - 46.0 fL [facility] RDW coefficient of variation 13.0 11.5 - 14.1 % [facility] Mean Platelet Volume 10.4 7.6 - 12.9 fL [facility] NRBC% auto 0.0 % [facility] NRBC Absolute 0.000 0.000 - 0.000 x10(3)/[facility] Blood 09/05/2023 1:58 AM EDT 09/05/2023 2:13 AM EDT Narrative Resulting Agency Comment Spec In Lab Eufemia Copeland MD HEMATOLOGY ORDERAB LES [facility] [place] [address] * (ABNORMAL) Basic Metabolic Panel (non-fasting) (09/05/2023 [...] [facility] Est Glomerular Filtration Rate 60 >=60 mL/min/1. 73 m?? [facility] [...] ORDERABL ES Performing Organization Address [facility] Co de Phone Number [facility] [place] [address] * Magnesium (09/05/2023 1:58 AM EDT) Magnesium 1.02 0.69 - 1.07 mmol/L [facility] Blood 09/05/2023 1:58 AM EDT 09/05/2023 2:13 AM EDT Narrative Resulting Agency Comment Spec In Lab Eufemia Copeland MD CHEMISTRY ORDERABL ES Performing Organization Address City/[facility]/ZIP Co de Phone Number [facility] [place] [address] * Miscellaneous Lab request (09/05/2023 1:58 AM EDT) Label Request received in lab. [facility] Blood 09/05/2023 1:58 AM EDT 09/05/2023 2:14 AM EDT Narrative Resulting Agency Comment Spec In Lab Samantha Broussard MD LAB SEND OUT ORDERAB LES Performing Organization Address City/[facility]/ZIP Co de Phone Number [facility] [place] [address] * IgG 4 (09/05/2023 1:58 AM EDT) IgG 4 47.7 3.9 - 86.4 mg/dL [facility] Blood 09/05/2023 1:58 AM EDT 09/05/2023 2:13 AM EDT Narrative Resulting Agency Comment Spec In Lab Samantha Broussard MD IMMUNOLOGY ORDERABLE S Performing Organization Address [facility] Co de Phone Number [facility] [place] [address] * (ABNORMAL) Basic Metabolic Panel (non-fasting) (09/04/2023 [...] [facility] Est Glomerular Filtration Rate 47(L) >=60 mL/min/1. 73 m?? [facility] [...] Mcmanus MD CHEMISTRY ORDERABLES Performing Organization Address City/[facility] Co de Phone Number [facility] [place] [address] * (ABNORMAL) Potassium (09/04/2023 9:13 AM EDT) Potassium 3.2(L) 3.5 - 5.0 mmol/L [facility] [...] In Lab Samantha Broussard MD CHEMISTRY ORDERABLES [facility] [place] [address] * (ABNORMAL) Potassium (09/04/2023 4:25 AM EDT) [facility] Potassium 2.9(Criti edy) 3.5 - 5.0 mmol/L [facility] Comment: Called by: staci, Read back by: Katalina Caba, Date/Time:09/04/23 05:17. Please note: ??Patients with WBC [...] CHEMISTRY ORDERABLES [facility] [place] [address] * Differential, Automated (09/04/2023 3:03 AM EDT) [facility] Neutrophil % 59.0 % [facility] Neutrophil Absolute 4.85 1.70 - 6.10 x10(3)/[facility] Lymph % 26.3 % [facility] Lymphocytes Abs 2.2 0.9 - 3.2 x10(3)/[facility] Monocyte % 10.4 % [facility] Monocyte Abs 0.8 0.3 - 0.9 x10(3)/[facility] Eos % 3.4 % [facility] Eosinophils Abs 0.3 0.0 - 0.4 x10(3)/[facility] Basophil % 0.5 % [facility] Baso Absolute 0.0 0.0 - 0.1 x10(3)/[facility] Immature Gran % 0.40 % [facility] Comment: Immature granulocytes(IG's)percentage and absolute count will include metamyelocytes, myelocytes, and promyelocytes. Blood smears from CBCs yielding IG's will be scanned manually for concordance. If this scan disagrees with the automated IG or if promyelocytes are noted, a manual differential will be performed. Immature Gran Absolute 0.03 0.00 - 0.04 x10(3)/mcL [facility] Blood 09/04/2023 3:03 AM EDT 09/04/2023 3:21 AM EDT Narrative Resulting Agency Comment Spec In Lab Eufemia Copeland MD HEMATOLOGY ORDERAB LES [facility] [place] [address] * (ABNORMAL) Hemogram (09/04/2023 3:03 AM EDT) White Blood Cell 8.2 4.0 - 9.5 x10(3)/mc L [facility] Red Blood Cell 4.55 4.00 - 5.21 x10(6)/mc L [facility] Hemoglobin 14.8 11.7 - 15.5 g/dL [facility] Hematocrit 41.8 35.7 - 45.8 % [facility] Mean Cell Volume 91.9 82.6 - 94.4 fL [facility] Mean Cell Hemoglobin 32.5(H) 27.1 - 32.0 pg [facility] Mean Cell Hemoglobin Concentration 35.4(H) 31.7 - 35.0 g/dL [facility] Platelet 306 145 - 357 x10(3)/mc L [facility] RDW Standard Deviation 42.8 37.0 - 46.0 fL [facility] RDW coefficient of variation 12.8 11.5 - 14.1 % [facility] Mean Platelet Volume 10.2 7.6 - 12.9 fL [facility] NRBC% auto 0.0 % [facility] NRBC Absolute 0.000 0.000 - 0.000 x10(3)/mc L [facility] Blood 09/04/2023 3:03 AM EDT 09/04/2023 3:21 AM EDT Narrative Resulting Agency Comment Spec In Lab Eufemia Copeland MD HEMATOLOGY ORDERAB LES [facility] [place] [address] * (ABNORMAL) Basic Metabolic Panel (non-fasting) (09/04/2023 3:03 AM EDT) Glucose 117 65 - 199 mg/dL [facility] Est Glomerular Filtration Rate 48(L) >=60 mL/min/1. 73 m?? [facility] [...] ORDERABL ES Performing Organization Address [facility] Co de Phone Number [facility] [place] [address] * Magnesium (09/04/2023 3:03 AM EDT) [facility] Magnesium 1.07 0.69 - 1.07 mmol/L [facility] Blood 09/04/2023 3:03 AM EDT 09/04/2023 3:21 AM EDT Narrative Resulting Agency Comment Spec In Lab Eufemia Copeland MD CHEMISTRY ORDERABL ES Performing Organization Address [facility] Co de Phone Number [facility] [place] [address] * EKG 12 Lead (09/03/2023 6:02 AM EDT) Ventricular rate 65 BPM MUSE SYSTEM Atrial Rate 65 BPM MUSE SYSTEM P-R Interval 196 ms MUSE SYSTEM QRS Duration 94 ms MUSE SYSTEM Q-T Interval 580 ms MUSE SYSTEM QTC Calculated (Bezet) 603 ms MUSE SYSTEM Calculated P [place] 39 degrees MUSE SYSTEM Calculated R [place] 28 degrees MUSE SYSTEM Calculated T [place] 35 degrees MUSE SYSTEM INTERPRETATION Sinus rhythm with Premature atrial complexes Possible Left atrial enlargement Nonspecific ST and T wave abnormality Abnormal ECG When compared with ECG of 03-SEP-2023 03:05, Nonspecific T wave abnormality no longer evident in Inferior leads Nonspecific T wave abnormality, improved in Anterolateral leads QT has lengthened Confirmed by fellow MD Santo Kajal ([id number]) on 09/06/2023 12:52:08 AM Confirmed by MD Lucia Jose ([id number]) on 09/06/2023 9:05:05 PM MUSE SYSTEM 09/03/2023 6:02 AM EDT 09/06/2023 9:05 PM EDT Archie Mcmanus MD ECG ORDERABLES Performing Organization Address [facility] Co de Phone Number MUSE SYSTEM * EKG 12 Lead (09/03/2023 3:05 AM EDT) Ventricular rate 62 BPM MUSE SYSTEM Atrial Rate 62 BPM MUSE SYSTEM P-R Interval 174 ms MUSE SYSTEM QRS Duration 90 ms MUSE SYSTEM Q-T Interval 486 ms MUSE SYSTEM QTC Calculated (Bezet) 493 ms MUSE SYSTEM Calculated P [place] 20 degrees MUSE SYSTEM Calculated R [place] 20 degrees MUSE SYSTEM Calculated T [place] -7 degrees MUSE SYSTEM INTERPRETATION Sinus rhythm with Premature atrial complexes Nonspecific ST and T wave abnormality Abnormal ECG When compared with ECG of 02-SEP-2023 14:42, Premature atrial complexes are now Present QT has lengthened Confirmed by fellow MD Santo Kajal ([id number]) on 09/06/2023 12:50:25 AM Confirmed by MD Lucia Jose ([id number]) on 09/06/2023 9:04:55 PM MUSE SYSTEM 09/03/2023 3:05 AM EDT 09/06/2023 9:04 PM EDT Archie Mcmanus MD ECG ORDERABLES Performing Organization Address [facility] Co de Phone Number MUSE SYSTEM * Differential, Automated (09/03/2023 2:39 AM EDT) Neutrophil % 61.1 % [facility] Neutrophil Absolute 5.22 1.70 - 6.10 x10(3)/[facility] LABORATORY Lymph % 24.2 % [facility] Lymphocytes Abs 2.1 0.9 - 3.2 x10(3)/[facility] LABOR[facility]ORY Monocyte % 10.3 % [facility] Monocyte Abs 0.9 0.3 - 0.9 x10(3)/[facility] LABORATORY Eos % 3.6 % [facility] Eosinophils Abs 0.3 0.0 - 0.4 x10(3)/[facility] Basophil % 0.6 % [facility] Baso Absolute 0.0 0.0 - 0.1 x10(3)/[facility] LABORATORY Immature Gran % 0.20 % [facility] Comment: Immature granulocytes(IG's)percentage and absolute count will include metamyelocytes, myelocytes, and promyelocytes. Blood smears from CBCs yielding IG's will be scanned manually for concordance. If this scan disagrees with the automated IG or if promyelocytes are noted, a manual differential will be performed. Immature Gran Absolute 0.02 0.00 - 0.04 x10(3)/[facility] LAB[facility]ORY Blood 09/03/2023 2:39 AM EDT 09/03/2023 2:46 AM EDT Narrative Resulting Agency Comment Spec In Lab Eufemia Copeland MD HEMATOLOGY ORDERAB LES [facility] [place] [address] * Hemogram (09/03/2023 2:39 AM EDT) White Blood Cell 8.6 4.0 - 9.5 x10(3)/[facility] LABORATORY Red Blood Cell 4.83 4.00 - 5.21 x10(6)/[facility]ORY Hemoglobin 15.2 11.7 - 15.5 g/dL [facility] Hematocrit 45.4 35.7 - 45.8 % [facility] Mean Cell Volume 94.0 82.6 - 94.4 fL [facility] Mean Cell Hemoglobin 31.5 27.1 - 32.0 pg [facility] Mean Cell Hemoglobin Concentration 33.5 31.7 - 35.0 g/dL [facility] Platelet 295 145 - 357 x10(3)/[facility] LABORATORY RDW Standard Deviation 44.1 37.0 - 46.0 fL [facility] RDW coefficient of variation 12.8 11.5 - 14.1 % [facility] Mean Platelet Volume 10.3 7.6 - 12.9 fL [facility] NRBC% auto 0.0 % [facility] NRBC Absolute 0.000 0.000 - 0.000 x10(3)/[facility] Blood 09/03/2023 2:39 AM EDT 09/03/2023 2:46 AM EDT Narrative Resulting Agency Comment Spec In Lab Eufemia Copeland MD HEMATOLOGY ORDERAB LES Performing Organization Address City/State/[facility] Co de Phone Number [facility] [place] [address] * (ABNORMAL) Basic Metabolic Panel (non-fasting) (09/03/2023 2:39 AM EDT) Glucose 108 65 - 199 mg/dL [facility] Est Glomerular Filtration Rate 40(L) >=60 mL/min/1. 73 m?? [facility] [...] ORDERABL ES [facility] [place] [address] * Magnesium (09/03/2023 2:39 AM EDT) Magnesium 0.98 0.69 - 1.07 mmol/L [facility] Blood 09/03/2023 2:39 AM EDT 09/03/2023 2:46 AM EDT Narrative Resulting Agency Comment Spec In Lab Eufemia Copeland MD CHEMISTRY ORDERABL ES [facility] [place] [address] * (ABNORMAL) Protein Electrophoresis, serum (09/03/2023 2:39 AM EDT) Total Prot Electrophoresis 7.9 6.1 - 8.0 g/dL [facility] Albumin Electrophoresis 4.87 3.20 - 5.20 g/dL [facility] Alpha 1 Globulin 0.21 0.10 - 0.30 g/dL [facility] Alpha 2 Globulin 1.03(H) 0.40 - 0.90 g/dL [facility] [...] Herr MD CHEMISTRY ORDERABLES Performing Organization Address [facility] Co de Phone Number [facility] [place] [address] * Protein Electrophoresis, urine, random (09/02/2023 9:30 PM EDT) Protein, Urine <6 0 - 12 mg/dL [facility] U Albumin See Note [facility] Comment:No protein visible v ia electrophoresis due to a low urine total protein. Globulin, Urine Not Perf [facility] Comment:No protein visible v ia electrophoresis due to a low urine total protein. M1 Band, Urine Not Perf [facility] Comment:No protein visible v ia electrophoresis due to a low urine total protein. UPEP Comments See Note [facility] Comment: Total Protein concentration too low to fractionate using current electrophoretic technique. No protein visible via electrophoresis due to a low urine total protein. Urine 09/02/2023 9:30 PM EDT 09/02/2023 9:35 PM EDT Narrative Resulting Agency Comment Spec In Lab Lorna Herr MD URINE ORDERABLES Performing Organization Address [facility]/ZIP Co de Phone Number [facility] [place] [address] * (ABNORMAL) Troponin (09/02/2023 8:16 PM EDT) Troponin-T, High Sensitivity 24(H) <=14 ng/L [facility] [...] troponin value can be found in the [facility] Test Catalog Troponin - [facility] Test Catalog Reference: Fourth [place] Definition of Myocardial Infarction. Journal of the [place] [employer] 2018;72:1649-4293 Blood 09/02/2023 8:16 PM EDT 09/02/2023 8:25 PM EDT Narrative Resulting Agency Comment Spec In Lab Lorna Herr MD CHEMISTRY ORDERABLES [facility] [place] [address] * (ABNORMAL) pro-Brain Natriuretic Peptide (09/02/2023 5:05 PM EDT) NT-proBNP 985(H) <=124 pg/mL [facility] Blood 09/02/2023 5:05 PM EDT 09/02/2023 5:17 PM EDT Narrative Resulting Agency Comment Spec In Lab Lorna Herr MD CHEMISTRY ORDERABLES Performing Organization Address City/[facility]/ZIP Co de Phone Number [facility] [place] [address] * (ABNORMAL) Troponin (09/02/2023 5:05 PM EDT) Pathologist [facility] Troponin-T, High Sensitivity 24(H) <=14 ng/L [facility] [...] troponin value can be found in the [facility] Test Catalog Troponin - [facility] Test Catalog Reference: Fourth [place] Definition of Myocardial Infarction. Journal of the [place] [employer] 2018;72:3513-7698 Blood 09/02/2023 5:05 PM EDT 09/02/2023 5:17 PM EDT Narrative Resulting Agency Comment Spec In Lab Lorna Herr MD CHEMISTRY ORDERABLES Performing Organization Address City/[facility]/ZIP Co de Phone Number [facility] [place] [address] * EKG 12 Lead (09/02/2023 2:42 PM EDT) Ventricular rate 60 BPM MUSE SYSTEM Atrial Rate 60 BPM MUSE SYSTEM P-R Interval 178 ms MUSE SYSTEM QRS Duration 88 ms MUSE SYSTEM Q-T Interval 434 ms MUSE SYSTEM QTC Calculated (Bezet) 434 ms MUSE SYSTEM Calculated P [place] 42 degrees MUSE SYSTEM Calculated R [place] 44 degrees MUSE SYSTEM INTERPRETATION Normal sinus [...] troponin value can be found in the [facility] Test Catalog Troponin - [facility] Test Catalog Reference: Fourth [place] Definition of Myocardial Infarction. Journal of the [place] [employer] 2018;72:3979-3264 Blood 09/02/2023 9:05 AM EDT 09/02/2023 9:28 AM EDT Narrative Resulting Agency Comment Spec In Lab Archie Mcmnaus MD CHEMISTRY ORDERABLES [facility] [place] [address] * Differential, Automated (09/02/2023 3:18 AM EDT) Neutrophil % 58.4 % [facility] Neutrophil Absolute 4.40 1.70 - 6.10 x10(3)/[facility] LABORATORY Lymph % 28.2 % [facility] Lymphocytes Abs 2.1 0.9 - 3.2 x10(3)/[facility] LAB[facility] Monocyte % 8.3 % [facility] Monocyte Abs 0.6 0.3 - 0.9 x10(3)/[facility] LABORATORY Eos % 4.2 % [facility] Eosinophils Abs 0.3 0.0 - 0.4 x10(3)/[facility] LABOR[facility] Basophil % 0.5 % [facility] Baso Absolute 0.0 0.0 - 0.1 x10(3)/[facility] LABORATORY Immature Gran % 0.40 % [facility] Comment: Immature granulocytes(IG's)percentage and absolute count will include metamyelocytes, myelocytes, and promyelocytes. Blood smears from CBCs yielding IG's will be scanned manually for concordance. If this scan disagrees with the automated IG or if promyelocytes are noted, a manual differential will be performed. Immature Gran Absolute 0.03 0.00 - 0.04 x10(3)/[facility] LAB[facility]ORY Blood 09/02/2023 3:18 AM EDT 09/02/2023 3:55 AM EDT Narrative Resulting Agency Comment Spec In Lab Eufemia Copeland MD HEMATOLOGY ORDERAB LES [facility] [place] [address] * (ABNORMAL) Hemogram (09/02/2023 3:18 AM EDT) White Blood Cell 7.6 4.0 - 9.5 x10(3)/mc L [facility] Red Blood Cell 4.33 4.00 - 5.21 x10(6)/mc L [facility] Hemoglobin 13.6 11.7 - 15.5 [...] g/dL [facility] Platelet 275 145 - 357 x10(3)/mc L [facility] RDW Standard Deviation 45.7 37.0 - 46.0 fL [facility] RDW coefficient of variation 13.2 11.5 - 14.1 % [facility] Mean Platelet Volume 10.7 7.6 - 12.9 fL [facility] NRBC% auto 0.0 % [facility] NRBC Absolute 0.000 0.000 - 0.000 x10(3)/mc L [facility] Blood 09/02/2023 3:18 AM EDT 09/02/2023 3:55 AM EDT Narrative Resulting Agency Comment Spec In Lab Eufemia Copeland MD HEMATOLOGY ORDERAB LES [facility] [place] [address] * (ABNORMAL) Troponin (09/02/2023 3:18 AM EDT) Pathologist [facility] Troponin-T, High Sensitivity 23(H) <=14 ng/L [facility] [...] troponin value can be found in the [facility] Test Catalog Troponin - [facility] Test Catalog Reference: Fourth [place] Definition of Myocardial Infarction. Journal of the [place] [employer] 2018;72:3263-3957 Blood 09/02/2023 3:18 AM EDT 09/02/2023 3:55 AM EDT Narrative Resulting Agency Comment Spec In Lab Archie Mcmanus MD CHEMISTRY ORDERABLES [facility] [place] [address] * (ABNORMAL) Basic Metabolic Panel (non-fasting) (09/02/2023 3:18 AM EDT) Pathologist [facility] Glucose 121 65 - 199 mg/dL [facility] [...] ORDERABL ES [facility] [place] [address] * Magnesium (09/02/2023 3:18 AM EDT) Magnesium 0.91 0.69 - 1.07 mmol/L [facility] Blood 09/02/2023 3:18 AM EDT 09/02/2023 3:55 AM EDT Narrative Resulting Agency Comment Spec In Lab Eufemia Copeland MD CHEMISTRY ORDERABL ES Performing Organization Address City/[facility]/[place] [address] * Differential, Automated (09/01/2023 3:08 AM EDT) Neutrophil % 57.1 % [facility] Neutrophil Absolute 4.00 1.70 - 6.10 x10(3)/[facility] LAB[facility]ORY Lymph % 26.9 % [facility] Lymphocytes Abs 1.9 0.9 - 3.2 x10(3)/[facility] Monocyte % 11.4 % [facility] Monocyte Abs 0.8 0.3 - 0.9 x10(3)/[facility] Eos % 4.1 % [facility] Eosinophils Abs 0.3 0.0 - 0.4 x10(3)/[facility] Basophil % 0.4 % [facility] Baso Absolute 0.0 0.0 - 0.1 x10(3)/[facility] LAB[facility] Immature Gran % 0.10 % [facility] Comment: Immature granulocytes(IG's)percentage and absolute count will include metamyelocytes, myelocytes, and promyelocytes. Blood smears from CBCs yielding IG's will be scanned manually for concordance. If this scan disagrees with the automated IG or if promyelocytes are noted, a manual differential will be performed. Immature Gran Absolute 0.01 0.00 - 0.04 x10(3)/[facility] LAB[facility]ORY Blood 09/01/2023 3:08 AM EDT 09/01/2023 3:18 AM EDT Narrative Resulting Agency Comment Spec In Lab Eufemia Copeland MD HEMATOLOGY ORDERAB LES Performing Organization Address City/[facility]/ZIP Co de Phone Number [facility] [place] [address] * (ABNORMAL) Hemogram (09/01/2023 3:08 AM EDT) [facility] White Blood Cell 7.0 4.0 - 9.5 x10(3)/[facility] LABORATORY Red Blood Cell 4.18 4.00 - 5.21 x10(6)/[facility] LAB[facility]ORY Hemoglobin 13.6 11.7 - 15.5 g/dL [facility] Hematocrit 39.8 35.7 - 45.8 % [facility] Mean Cell Volume 95.2(H) 82.6 - 94.4 fL [facility] Mean Cell Hemoglobin 32.5(H) 27.1 - 32.0 pg [facility] Mean Cell Hemoglobin Concentration 34.2 31.7 - 35.0 g/dL [facility] Platelet 232 145 - 357 x10(3)/[facility] LABORATORY RDW Standard Deviation 45.0 37.0 - 46.0 [facility] LABORATORY RDW coefficient of variation 13.1 11.5 - 14.1 % [facility] Mean Platelet Volume 10.2 7.6 - 12.9 [facility] LABORATORY NRBC% auto 0.0 % [facility] NRBC Absolute 0.000 0.000 - 0.000 x10(3)/[facility] LABORATORY Blood 09/01/2023 3:08 AM EDT 09/01/2023 3:18 AM EDT Narrative Resulting Agency Comment Spec In Lab Eufemia Copeland MD HEMATOLOGY ORDERAB LES [facility] [place] [address] * (ABNORMAL) Basic Metabolic Panel (non-fasting) (09/01/2023 3:08 AM EDT) [facility] Glucose 110 65 - 199 mg/dL [facility] [...] ORDERABL ES [facility] [place] [address] * Magnesium (09/01/2023 3:08 AM EDT) Magnesium 0.98 0.69 - 1.07 mmol/L [facility] Blood 09/01/2023 3:08 AM EDT 09/01/2023 3:18 AM EDT Narrative Resulting Agency Comment Spec In Lab Eufemia Copeland MD CHEMISTRY ORDERABL ES Performing Organization Address City/[facility]/ZIP Co de Phone Number [facility] [place] [address] * Magnesium (08/31/2023 5:03 PM EDT) Magnesium 0.95 0.69 - 1.07 mmol/L [facility] Blood 08/31/2023 5:03 PM EDT 08/31/2023 5:08 PM EDT Narrative Resulting Agency Comment Spec In Lab Eufemia Copeland MD CHEMISTRY ORDERABL ES Performing Organization Address [facility]/ZIP Co de Phone Number [facility] [place] [address] * Phosphorus (08/31/2023 5:03 PM EDT) Phosphorus 3.8 2.5 - 4.5 mg/dL [facility] Blood 08/31/2023 5:03 PM EDT 08/31/2023 5:08 PM EDT Narrative Resulting Agency Comment Spec In Lab Eufemia Copeland MD CHEMISTRY ORDERABL ES Performing Organization Address [facility]/ZIP Co de Phone Number [facility] [place] [address] * (ABNORMAL) Basic Metabolic Panel (non-fasting) (08/31/2023 [...] ORDERABL ES [facility] [place] [address] * Differential, Automated (08/31/2023 2:18 AM EDT) Neutrophil % 58.1 % [facility] Neutrophil Absolute 4.52 1.70 - 6.10 x10(3)/mcL [facility] Lymph % 25.8 % [facility] Lymphocytes Abs 2.0 0.9 - 3.2 x10(3)/[facility] LABORATORY Monocyte % 11.0 % [facility] Monocyte Abs 0.9 0.3 - 0.9 x10(3)/[facility] LABORATORY Eos % 4.0 % [facility] Eosinophils Abs 0.3 0.0 - 0.4 x10(3)/[facility] Basophil % 0.6 % [facility] Baso Absolute 0.0 0.0 - 0.1 x10(3)/[facility] LABOR[facility]ORY Immature Gran % 0.50 % [facility] Comment: Immature granulocytes(IG's)percentage and absolute count will include metamyelocytes, myelocytes, and promyelocytes. Blood smears from CBCs yielding IG's will be scanned manually for concordance. If this scan disagrees with the automated IG or if promyelocytes are noted, a manual differential will be performed. Immature Gran Absolute 0.04 0.00 - 0.04 x10(3)/[facility] LABORATORY Blood 08/31/2023 2:18 AM EDT 08/31/2023 2:23 AM EDT Narrative Resulting Agency Comment Spec In Lab Archie Mcmanus MD HEMATOLOGY ORDERABLE S Performing Organization Address City/State/[facility] Co de Phone Number [facility] [place] [address] * (ABNORMAL) Hemogram (08/31/2023 2:18 AM EDT) White Blood Cell 7.8 4.0 - 9.5 x10(3)/mc L [facility] Red Blood Cell 3.97(L) 4.00 - 5.21 x10(6)/mc L [facility] Hemoglobin 12.6 11.7 - 15.5 [...] g/dL [facility] Platelet 218 145 - 357 x10(3)/mc L [facility] RDW Standard Deviation 47.5(H) 37.0 - 46.0 fL [facility] RDW coefficient of variation 13.2 11.5 - 14.1 % [facility] Mean Platelet Volume 10.6 7.6 - 12.9 fL [facility] NRBC% auto 0.0 % [facility] NRBC Absolute 0.000 0.000 - 0.000 x10(3)/mc L [facility] Blood 08/31/2023 2:18 AM EDT 08/31/2023 2:23 AM EDT Narrative Resulting Agency Comment Spec In Lab Archie Mcmanus MD HEMATOLOGY ORDERABLE S Performing Organization Address City/[facility]/ZIP Co de Phone Number [facility] [place] [address] * Magnesium (08/31/2023 2:18 AM EDT) Magnesium 0.96 0.69 - 1.07 mmol/L [facility] Blood 08/31/2023 2:18 AM EDT 08/31/2023 2:23 AM EDT Narrative Resulting Agency Comment Spec In Lab Eufemia Copeland MD CHEMISTRY ORDERABL ES Performing Organization Address City/[facility]/ZIP Co de Phone Number [facility] [place] [address] * (ABNORMAL) Basic Metabolic Panel (non-fasting) (08/31/2023 [...] [facility] Comment:result rechecked-bz Carbon Dioxide 25 22 - 31 mmol/L [facility] Anion Gap 12 5 - 15 mmol/L [facility] Calcium 9.6 8.5 - 10.5 mg/dL [facility] Comment:result rechecked-bz Est Glomerular Filtration [...] CHEMISTRY ORDERABLES [facility] [place] [address] * Differential, Automated (08/30/2023 3:09 AM EDT) Neutrophil % 67.5 % [facility] Neutrophil Absolute 5.26 1.70 - 6.10 x10(3)/[facility] LABORATORY Lymph % 19.1 % [facility] Lymphocytes Abs 1.5 0.9 - 3.2 x10(3)/[facility] LABOR[facility] Monocyte % 9.4 % [facility] Monocyte Abs 0.7 0.3 - 0.9 x10(3)/[facility] LABORAT[facility] Eos % 3.2 % [facility] Eosinophils Abs 0.2 0.0 - 0.4 x10(3)/[facility] Basophil % 0.4 % [facility] Baso Absolute 0.0 0.0 - 0.1 x10(3)/[facility] LABORATORY Immature Gran % 0.40 % [facility] Comment: Immature granulocytes(IG's)percentage and absolute count will include metamyelocytes, myelocytes, and promyelocytes. Blood smears from CBCs yielding IG's will be scanned manually for concordance. If this scan disagrees with the automated IG or if promyelocytes are noted, a manual differential will be performed. Immature Gran Absolute 0.03 0.00 - 0.04 x10(3)/[facility] LAB[facility]ORY Blood 08/30/2023 3:09 AM EDT 08/30/2023 3:21 AM EDT Narrative Resulting Agency Comment Spec In Lab Archie Mcmanus MD HEMATOLOGY ORDERABLE S [facility] [place] [address] * (ABNORMAL) Hemogram (08/30/2023 3:09 AM EDT) Pathologist [facility] White Blood Cell 7.8 4.0 - 9.5 x10(3)/mc L [facility] Red Blood Cell 3.34(L) 4.00 - 5.21 x10(6)/mc L [facility] Hemoglobin 10.5(L) 11.7 - 15.5 g/dL [facility] Hematocrit 31.8(L) 35.7 - 45.8 % [facility] Mean Cell Volume 95.2(H) 82.6 - 94.4 fL [facility] Mean Cell Hemoglobin 31.4 27.1 - 32.0 pg [facility] Mean Cell Hemoglobin Concentration 33.0 31.7 - 35.0 g/dL [facility] Platelet 176 145 - 357 x10(3)/[facility] RDW Standard Deviation 46.5(H) 37.0 - 46.0 fL [facility] RDW coefficient of variation 13.2 11.5 - 14.1 % [facility] Mean Platelet Volume 10.9 7.6 - 12.9 fL [facility] NRBC% auto 0.0 % [facility] NRBC Absolute 0.000 0.000 - 0.000 x10(3)/[facility] Blood 08/30/2023 3:09 AM EDT 08/30/2023 3:21 AM EDT Narrative Resulting Agency Comment Spec In Lab Archie Mcmanus MD HEMATOLOGY ORDERABLE S [facility] [place] [address] * Heparin (unfractionated) Level (08/30/2023 3:09 AM EDT) UF Heparin 0.46 IU/mL [facility] [...] MD HEMATOLOGY ORDERABLE S Performing Organization Address [facility] Co de Phone Number [facility] [place] [address] * Magnesium (08/30/2023 3:09 AM EDT) Magnesium 0.74 0.69 - 1.07 mmol/L [facility] Blood 08/30/2023 3:09 AM EDT 08/30/2023 3:20 AM EDT Narrative Resulting Agency Comment Spec In Lab Eufemia Copeland MD CHEMISTRY ORDERABL ES Performing Organization Address [facility] Co de Phone Number [facility] [place] [address] * (ABNORMAL) Basic Metabolic Panel (non-fasting) (08/30/2023 [...] [facility] Comment:result rechecked-mg Est Glomerular Filtration [...] CHEMISTRY ORDERABLES [facility] [place] [address] * Heparin (unfractionated) Level (08/29/2023 5:49 PM EDT) UF Heparin 0.52 IU/mL [facility] Comment: [...] MD HEMATOLOGY ORDERABLE S Performing Organization Address [facility] Co de Phone Number [facility] [place] [address] * EKG 12 Lead (08/29/2023 3:05 PM EDT) Ventricular rate 56 BPM MUSE SYSTEM Atrial Rate 56 BPM MUSE SYSTEM P-R Interval 172 ms MUSE SYSTEM QRS Duration 86 ms MUSE SYSTEM Q-T Interval 560 ms MUSE SYSTEM QTC Calculated (Bezet) 540 ms MUSE SYSTEM Calculated P [place] 10 degrees MUSE SYSTEM Calculated R [place] 27 degrees MUSE SYSTEM Calculated T [place] 8 degrees MUSE SYSTEM INTERPRETATION Sinus bradycardia [...] Mcmanus MD ECG ORDERABLES Performing Organization Address [facility] de Phone Number MUSE SYSTEM * Heparin (unfractionated) Level (08/29/2023 11:48 AM EDT) UF Heparin 0.55 IU/mL [facility] Comment: [...] S [facility] [place] [address] * ECHO LMTD W CONTRAST W LMTD SPEC DOPP COLOR DOPP (08/29/2023 11:35 AM EDT) EF 50 HEARTLAB SYSTEM Anatomical Region Laterality Modality Cardiac Other 08/29/2023 9:47 AM EDT Narrative 08/29/2023 12:27 PM EDT [address] [place] [address] ? Echocardiogram Report Name: LOIDA MADRIGAL ? Study Date: 08/29/2023 09:47 AMBP: 100/55 mmHg ? Patient Location: [place]4[facility] [id number] A : 1970 ? Height: 163 cm ? Account: [id number] Age: 53 yrs ? Weight: 102 kg Gender: Female ?BSA: 2.1 m2 Ordering Physician: ARCHIE MCMANUS Referring Physician: SKIP HUMPHREY Performed By: Nalini Alvares RDCS Exam Location: [facility]. Interpretation Summary Left ventricle is [...] of the anterior wall. Procedure Limited - 13533. Image enhancement Optison was used for left [...] Note Jaspreet Kinsey MD - 08/29/2023 [address] [place] [address] Echocardiogram Report Name: LOIDA MADRIGAL Study Date: 409:47 AMBP: 100/55 mmHg Patient Location: [address] : 1970 Height: 163 cm Account: [id number] Age: 53 yrs Weight: 102 kg Gender: Female BSA: 2.1 m2 Ordering Physician: ARCHIE MCMANUS Referring Physician: SKIP HUMPHREY Performed By: Nalini Alvares RDCS Exam Location: [facility]. Interpretation Summary Left ventricle is normal in size. There is low normal global systolicfunction, with focal hypokinesis in the anteroseptum as ascribed. Right ventricle is not well visualized. No hemodynamically significant valve disease. Compared to prior studies over the past 6 months, there has been stableglobal LV systolic function, with oscillating regional function of the anteriorwall. Procedure Limited - 89308. Image enhancement Optison was used for left [...] (Bezet) 546 ms MUSE SYSTEM Calculated P [place] 21 degrees MUSE SYSTEM Calculated R [place] 21 degrees MUSE SYSTEM Calculated T [place] 0 degrees MUSE SYSTEM INTERPRETATION Sinus bradycardia Possible Lateral infarct (cited on or before 29-JUL-2023) Prolonged QT Abnormal ECG When compared with ECG of 29-JUL-2023 08:47, Premature atrial complexes are no longer Present Criteria for Septal infarct are no longer Present Nonspecific T wave abnormality, improved in Inferior leads QT has lengthened Confirmed by MD Amelie, Jaspreet ([id number]) on 08/29/2023 3:51:39 PM MUSE SYSTEM 08/29/2023 6:04 AM EDT 08/29/2023 3:51 PM EDT Archie Mcmanus MD ECG ORDERABLES MUSE SYSTEM * CRP, acute inflammation (08/29/2023 4:01 AM EDT) C-Reactive Protein <3.0 <=4.9 mg/L [facility] Blood Venous Draw / Unknown 08/29/2023 4:01 AM EDT 08/29/2023 4:13 AM EDT Narrative Resulting Agency Comment Spec In Lab Eufemia Copeland MD CHEMISTRY ORDERABL ES Performing Organization Address [facility]/ZIP Co de Phone Number [facility] [place] [address] * Sedimentation rate (08/29/2023 4:01 AM EDT) Pathologist [facility] Sedimentation Rate Automated 11 2 - 39 mm/hr [facility] [...] MD HEMATOLOGY ORDERAB LES Performing Organization Address [facility]/ZIP Co de Phone Number [facility] [place] [address] * Green Tube HOLD (08/29/2023 4:01 AM EDT) [facility] Green Hold Sample in lab. [facility] Blood Venous Draw / Unknown 08/29/2023 4:01 AM EDT 08/29/2023 4:09 AM EDT Archie Mcmanus MD CHEMISTRY ORDERABLES Performing Organization Address [facility]/ZIP Co de Phone Number [facility] [place] [address] * Differential, Automated (08/29/2023 4:01 AM EDT) Neutrophil % 65.6 % [facility] Neutrophil Absolute 5.23 1.70 - 6.10 x10(3)/mcL [facility] Lymph % 21.4 % [facility] Lymphocytes Abs 1.7 0.9 - 3.2 x10(3)/[facility] Monocyte % 8.5 % [facility] Monocyte Abs 0.7 0.3 - 0.9 x10(3)/[facility] Eos % 4.0 % [facility] Eosinophils Abs 0.3 0.0 - 0.4 x10(3)/[facility] Basophil % 0.4 % [facility] Baso Absolute 0.0 0.0 - 0.1 x10(3)/[facility] Immature Gran % 0.10 % [facility] Comment: Immature granulocytes(IG's)percentage and absolute count will include metamyelocytes, myelocytes, and promyelocytes. Blood smears from CBCs yielding IG's will be scanned manually for concordance. If this scan disagrees with the automated IG or if promyelocytes are noted, a manual differential will be performed. Immature Gran Absolute 0.01 0.00 - 0.04 x10(3)/[facility] Blood 08/29/2023 4:01 AM EDT 08/29/2023 4:08 AM EDT Narrative Resulting Agency Comment Spec In Lab Archie Mcmanus MD HEMATOLOGY ORDERABLE S Performing Organization Address City/State/[facility] Co de Phone Number [facility] [place] [address] * (ABNORMAL) Hemogram (08/29/2023 4:01 AM EDT) White Blood Cell 8.0 4.0 - 9.5 x10(3)/mc L [facility] Red Blood Cell 3.91(L) 4.00 - 5.21 x10(6)/mc L [facility] Hemoglobin 12.6 11.7 - 15.5 g/dL [facility] Hematocrit 37.6 35.7 - 45.8 % [facility] Mean Cell Volume 96.2(H) 82.6 - 94.4 fL [facility] Mean Cell Hemoglobin 32.2(H) 27.1 - 32.0 pg [facility] Mean Cell Hemoglobin Concentration 33.5 31.7 - 35.0 g/dL [facility] Platelet 197 145 - 357 x10(3)/mc L [facility] RDW Standard Deviation 46.7(H) 37.0 - 46.0 fL [facility] RDW coefficient of variation 13.3 11.5 - 14.1 % [facility] Mean Platelet Volume 10.4 7.6 - 12.9 fL [facility] NRBC% auto 0.0 % [facility] NRBC Absolute 0.000 0.000 - 0.000 x10(3)/mc L [facility] Blood 08/29/2023 4:01 AM EDT 08/29/2023 4:08 AM EDT Narrative Resulting Agency Comment Spec In Lab Archie Mcmanus MD HEMATOLOGY ORDERABLE S [facility] [place] [address] * (ABNORMAL) Heparin (unfractionated) Level (08/29/2023 4:01 AM EDT) UF Heparin 1.04(Crit ical) IU/mL [facility] Comment: Critical Result called by ?? HOWAJM CRITICAL Results read back by: ? jayson [...] ORDERABLE S [facility] [place] [address] * (ABNORMAL) Basic Metabolic Panel (non-fasting) (08/29/2023 [...] Comment Spec In Lab Arcihe Mcmanus MD CHEMISTRY ORDERABLES [facility] [place] [address] * (ABNORMAL) Troponin (08/29/2023 12:31 AM EDT) Pathologist [facility] Troponin-T, High Sensitivity 31(H) <=14 ng/L [facility] [...] troponin value can be found in the [facility] Test Catalog Troponin - [facility] Test Catalog Reference: Fourth [place] Definition of Myocardial Infarction. Journal of the [place] [employer] 2018;72:0240-3265 Blood 08/29/2023 12:3 1 AM EDT 08/29/2023 12:35 AM EDT Narrative Resulting Agency Comment Spec In Lab Archie Mcmanus MD CHEMISTRY ORDERABLES Performing Organization Address City/[facility]/[place] [address] * Differential, Automated (08/28/2023 9:07 PM EDT) Neutrophil % 59.8 % [facility] Neutrophil Absolute 4.06 1.70 - 6.10 x10(3)/[facility] Lymph % 28.8 % [facility] Lymphocytes Abs 2.0 0.9 - 3.2 x10(3)/[facility] Monocyte % 5.7 % [facility] Monocyte Abs 0.4 0.3 - 0.9 x10(3)/[facility] Eos % 4.6 % [facility] Eosinophils Abs 0.3 0.0 - 0.4 x10(3)/[facility] Basophil % 0.7 % [facility] Baso Absolute 0.0 0.0 - 0.1 x10(3)/[facility] Immature Gran % 0.40 % [facility] Comment: Immature granulocytes(IG's)percentage and absolute count will include metamyelocytes, myelocytes, and promyelocytes. Blood smears from CBCs yielding IG's will be scanned manually for concordance. If this scan disagrees with the automated IG or if promyelocytes are noted, a manual differential will be performed. Immature Gran Absolute 0.03 0.00 - 0.04 x10(3)/[facility] Blood 08/28/2023 9:07 PM EDT 08/28/2023 9:12 PM EDT Narrative Resulting Agency Comment Spec In Lab Archie Mcmanus MD HEMATOLOGY ORDERABLE S Performing Organization Address City/[facility]/ZIP Co de Phone Number [facility] [place] [address] * (ABNORMAL) Hemogram (08/28/2023 9:07 PM EDT) [facility] White Blood Cell 6.8 4.0 - 9.5 x10(3)/mc L [facility] Red Blood Cell 4.39 4.00 - 5.21 x10(6)/mc L [facility] Hemoglobin 14.1 11.7 - 15.5 g/dL [facility] Hematocrit 42.2 35.7 - 45.8 % [facility] Mean Cell Volume 96.1(H) 82.6 - 94.4 fL [facility] Mean Cell Hemoglobin 32.1(H) 27.1 - 32.0 pg [facility] Mean Cell Hemoglobin Concentration 33.4 31.7 - 35.0 g/dL [facility] Platelet 234 145 - 357 x10(3)/[facility] RDW Standard Deviation 47.3(H) 37.0 - 46.0 fL [facility] RDW coefficient of variation 13.3 11.5 - 14.1 % [facility] Mean Platelet Volume 10.3 7.6 - 12.9 fL [facility] NRBC% auto 0.0 % [facility] NRBC Absolute 0.000 0.000 - 0.000 x10(3)/[facility] Blood 08/28/2023 9:07 PM EDT 08/28/2023 9:12 PM EDT Narrative Resulting Agency Comment Spec In Lab Archie Mcmanus MD HEMATOLOGY ORDERABLE S [facility] [place] [address] * (ABNORMAL) Heparin (unfractionated) Level (08/28/2023 9:07 PM EDT) [facility] UF Heparin 1.90(Crit ical) IU/mL [facility] Comment: Critical Result called by ?? HOWAJM CRITICAL Results read back by: ? katalina yuki at 2023-08-28 21:43:34 Heparin (anti-Xa) levels should [...] ORDERABLE S [facility] [place] [address] * Lipid Panel (Reflex Direct LDL) (08/28/2023 9:07 PM EDT) [facility] Cholesterol, Total 203 mg/dL [facility] Comment: Desirable: ? <200 mg/dL Borderline High: 200-239 mg/dL Higher: ?>ze=419 mg/dL Triglyceride 146 mg/dL [facility] Comment: Normal: ?<150 mg/dL Borderline High: 150-199 mg/dL High: ?200-499 mg/dL Very High: ? >kd=527 mg/dL HDL Cholesterol 52 mg/dL [facility] Comment: Females: High Risk: <50 mg/dL Males: High Risk: <40 mg/dL LDL Cholesterol 122 mg/dL [facility] Comment: Desirable: ? <100 mg/dL Above Desirable: 100-129 mg/dL Borderline High: 130-159 mg/dL High: ?160-189 mg/dL Very High: ? >gu=697 mg/dL Lipid Interpretation See Note [facility] [...] ACC/AHA Guidelines (most recently Ysabel et al. [facility] 12/09/21): For individuals with atherosclerotic cardiovascular disease (ASCVD)or LDL >zm=159 mg/dL, use a high-intensity statin (40-80 mg [...] Mcmanus MD CHEMISTRY ORDERABLES Performing Organization Address City/[facility]/ZIP Co de Phone Number [facility] [place] [address] * (ABNORMAL) pro-Brain Natriuretic Peptide (08/28/2023 9:07 PM EDT) NT-proBNP 2,854(H) <=124 pg/mL [facility] Blood 08/28/2023 9:07 PM EDT 08/28/2023 9:12 PM EDT Narrative Resulting Agency Comment Spec In Lab Archie Mcmanus MD CHEMISTRY ORDERABLES Performing Organization Address [facility] Co de Phone Number [facility] [place] [address] * (ABNORMAL) Troponin (08/28/2023 9:07 PM EDT) Troponin-T, High Sensitivity 31(H) <=14 ng/L [facility] [...] troponin value can be found in the [facility] Test Catalog Troponin - [facility] Test Catalog Reference: Fourth [place] Definition of Myocardial Infarction. Journal of the [place] [employer] 2018;72:9561-7101 Blood 08/28/2023 9:07 PM EDT 08/28/2023 9:12 PM EDT Narrative Resulting Agency Comment Spec In Lab Archie Mcmanus MD CHEMISTRY ORDERABLES Performing Organization Address [facility] Co de Phone Number [facility] [place] [address] * (ABNORMAL) Hepatic Function Panel (08/28/2023 9:07 PM EDT) Pathologist [facility] Protein, Total 6.6 6.1 - 8.0 g/dL [facility] Albumin 4.2 3.2 - 5.2 g/dL [facility] Aspartate Aminotransferase 32(H) 0 - 30 unit/L [facility] Alanine Aminotransferase 28 0 - 30 unit/L [facility] Alkaline Phosphatase 52 35 - 105 unit/L [facility] Bilirubin, Total 0.6 0.2 - 1.3 mg/dL [facility] Bilirubin, Direct 0.2 0.0 - 0.3 mg/dL [facility] Blood 08/28/2023 9:07 PM EDT 08/28/2023 9:12 PM EDT Narrative Resulting Agency Comment Spec In Lab Archie Mcmanus MD CHEMISTRY ORDERABLES Performing Organization Address [facility] Co de Phone Number [facility] [place] [address] * (ABNORMAL) Basic Metabolic Panel (non-fasting) (08/28/2023 9:07 PM EDT) [facility] Glucose 95 65 - 199 mg/dL [facility] [...] CHEMISTRY ORDERABLES [facility] [place] [address] * Magnesium (08/28/2023 9:07 PM EDT) Magnesium 1.05 0.69 - 1.07 mmol/L [facility] Blood 08/28/2023 9:07 PM EDT 08/28/2023 9:12 PM EDT Narrative Resulting Agency Comment Spec In Lab Archie Mcmanus MD CHEMISTRY ORDERABLES Performing Organization Address City/State/[facility] Co de Phone Number [facility] [place] [address] documented in this encounter Visit Diagnoses Diagnosis [...] 80 mg, Intravenous, ONCE, 1 dose, On Tu08/31/23 at 1345 Given 08/31/2023 1:25 PM EDT 80 mg gabapentin (Neurontin) capsule 600 mg 600 mg, Oral, NIGHTLY, First dose on 08/29/23 at 2100, Until Discontinued, Routine Given 09/09/2023 [...] 5 mg, Oral, ONCE, 1 dose, On Wed08/29/23 at 1600, Routine Given 08/29/2023 3:21 PM [...] 80 mg, Oral, ONCE, 1 dose, On Aura 09/02/23 at 1800, Routine Given 09/02/2023 5:40 PM [...] Discontinued 0841 (Given - Provider: Chayo Painting RN)2099 (Not Given - Provider: Jo Ann Bello RN - Reason: Patient/family refused) 08 (Not Given - Provider: Tim Cardoza RN - Reason: Patient/family refused)2100 (Not Given - Provider: Jo Ann Bello RN - Reason: Patient/family refused) 0900 (Not Given - Provider: Tim Cardoza RN - Reason: Patient/family refused) pantoprazole EC (Protonix) tablet 40 mg 40 mg, Oral, DAILY, First dose on Ace 08/29/23 at 0900, Until Discontinued 0840 (Given - Provider: Chayo Painting RN) 08 (Given - Provider: Tim Cardoza RN) 08 (Given - Provider: Tim Cardoza, ERWIN) ranolazine ER (Ranexa) tablet 500 mg 500 mg, Oral, 2 TIMES DAILY, First dose (after last modification) on [facility] 09/02/23 at 2100, Until Discontinued, DO NOT CRUSH OR OPEN. Baseline EKG required before administration., Routine, Has baseline EKG been obtained? Yes 0839 (Given - Provider: Chayo Painting RN)2099 (Given - Provider: Jo Ann Bello RN) 08 (Given - Provider: Tim Cardoza, ERWIN)2038 (Given - Provider: Jo Ann Bello, ERWIN) 08 (Given - Provider: Tim Cardoza, ERWIN) rOPINIRole (Requip) tablet 2 mg 2 mg, Oral, 2 TIMES DAILY, First dose on [facility] 08/28/23 at 2145, Until Discontinued, Routine 0839 (Given - Provider: Chayo Painting RN)2058 (Given - Provider: Jo Ann Bello, ERWIN) 08 (Given - Provider: Tim Cardoza, ERWIN)2038 (Given - Provider: Jo Ann Bello RN) 08 (Given - Provider: Tim Cardoza, ERWIN) sodium chloride 0.9 % (flush) (BD PosiFlush Normal Saline 0.9) flush 5 mL 5 mL, Intravenous, 2 TIMES DAILY, First dose on 08/28/23 at 2145, Until Discontinued, Routine 0842 (Given - Provider: Chayo Painting RN)210 (Given - Provider: Jo Ann Bello, ERWIN) 0823 (Given - Provider: Tim Cardoza RN)2040 (Given - Provider: Jo Ann Bello RN) 0829 (Given - Provider: Tim Cardoza RN) spironolactone (Aldactone) tablet 25 mg 25 mg, Oral, DAILY, First dose on Wed08/29/23 at 0900, Until Discontinued, DO NOT SPLIT, CRUSH OR OPEN, Routine 0840 (Given - Provider: Chayo Painting RN) 0819 (Given - Provider: Tim Cardoza RN) 0822 (Given - Provider: Tmi Cardoza RN) topiramate (Topamax) tablet 100 mg [...] PRN, 1 dose, Starting on 08/28/23 at 2049, Until Wed09/10/23 at 193, for discomfort with PIV insertion, Routine LORazepam [...] 5 MIN PRN, Starting on Wed08/28/23 at 2048, Until Wed09/10/23 at 193, Chest pain, SL [...] on Wed09/04/23 at 0833, Until Wed09/10/23 at 193, potassium [...] (Given - Provider: Jo Ann Bello, RN) sodium chloride 0.9 % (flush) (BD [...] (Given - Provider: Jo Ann Bello RN) documented in this encounter Care Teams Structural Metal Worker Relationship Specialty Start Date End Date Polo Pearce PA [address] [place] [address] PCP - General Internal Medicine 06/09/21 documented as of this encounter
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
--- OUTSIDE RECORDS SUMMARY | 2024-01-24 12:30 | XMS_ITS | Encounter Summary ---
Author Organization [facility] Address [facility] [address] Care Team Providers Care Housekeeper Name Role Phone Polo Pearce Primary Care Provider [phone] Encounter Details Date Type Department Care Team [...] th e electric, gas, oil, or water [employer] threatened to shut off services in your [...] 1:00 PM EST Office Visit Cardiology at [address] [place] [address] Jaspreet Kinsey MD [facility] [place] [address] documented as of this encounter Visit Diagnoses Not on filedocumented in this encounter Care Teams Housekeeper Relationship Specialty Start Date End Date Polo Pearce PA [address] [place] [address] PCP - General Internal Medicine 06/09/21 documented as of this encounter
--- OUTSIDE RECORDS SUMMARY | 2024-01-24 12:30 | XMS_ITS | Encounter Summary ---
[place] [address] Care Team Providers Care Accounting Assistant Name Role Phone Polo Pearce Primary Care Provider [phone] Reason for Visit * Auth/Cert (Routine) Specialty Diagnoses / Procedures Referred By Contac t Referred To Contact Diagnoses NSTEMI (non-ST elevated myocardial infarction) NSTEMI Procedures [place] [address] [facility] Referral ID Status Reason Start Date Expiration Date Visits Re quested Visits Authorized [id number] 1 1 Encounter Details Date Type Department Care Team (Latest Contact Info) Description 08/25/2023 1:05 PM EDT Laboratory Appointment Lab [address] [place] [address] Heart failure with preserved ejection fraction, unspecified HF chronicity; Chronic kidney disease, unspecified CKD stage; Altered bowel function; Depression, unspecified depression type Social History Tobacco Use Types Packs/Day Years Used Date Smoking Tobacco: Never Smokeless Tobacco: Never Alcohol Use Standard Drinks/Week Comments Never 0 (1 standard drink = 0.6 oz pur e alcohol) [facility] Utilities Answer Date Recorded In the past 12 months has [employer], gas, oil, or water company threatened to [...] 1:00 PM EST Office Visit Cardiology at [address] [place] [address] Jaspreet Kinsey MD [facility] [place] [address] documented as of this encounter Procedures Procedure [...] unspecified HF chronicity HC DNA AB DS ([place]) Routine [...] RANGELN CHEMISTRY ORDERABL ES Performing Organization Address [facility] Co de Phone Number [facility] [place] [address] * IgG (08/25/2023 11:28 AM EDT) Immunoglobulin G 1,114 700 - 1,600 mg/dL [facility] Comment: Pediatric Reference Intervals obtained from the Caliper Reference Interval project. http://www.[employer].ca/caliperproject/index.html Blood 08/25/2023 11:2 8 AM EDT 08/25/2023 11:37 AM EDT Narrative Resulting Agency Comment Spec In Lab Mary Gray Amy RANGELN CHEMISTRY ORDERABL ES Performing Organization Address [facility] Co de Phone Number [facility] [place] [address] * Tissue transglutaminase, IgA (08/25/2023 11:28 AM EDT) TTG IgA Ab 0.6 <=10.0 u/ml [facility] Comment: Negative: ??<7 units/mL Indeterminate: 7-10 units/mL Positive: ??>10 units/mL Blood 08/25/2023 11:2 8 AM EDT 08/26/2023 7:26 AM EDT Narrative Resulting Agency Comment Spec In Lab Mary M Amy BOARD SAW RUNNER IMMUNOLOGY ORDERAB LES Performing Organization Address [facility] Co de Phone Number [facility] [place] [address] * (ABNORMAL) Basic Metabolic Panel (non-fasting) (08/25/2023 11:28 AM EDT) Glucose 111 65 - 199 mg/dL [facility] [...] ORDERABLES [facility] [place] [address] * KATHRINE Antibody Screen (08/25/2023 11:28 AM EDT) KATHRINE Ab Screen Negative Negative [facility] Comment: This antinuclear antibody (KATHRINE) screen is a qualitative test performed using a fluoroenzyme immunoassay on the Capture Mediadia 250 analyzer. This screen is designed to [...] generated using a fluoroenzyme immunoassay on the Capture Mediadia 250 analyzer. This quantitative test is designed to detect IgG antibodies directed against double stranded DNA in human serum. The presence of antibodies that recognize dsDNA is a highly specific marker for systemic lupus erythematosus. Please note that as of 12/30/2021 that this testing is performed by the Special Chemistry Laboratory at [facility]. This change in testing location is associated with a change is testing method and reference intervals. Please review the results of this test in association with the posted reference intervals. Blood 08/25/2023 11:2 8 AM EDT 08/26/2023 7:26 AM EDT Narrative Resulting Agency Comment Spec In Lab Jaspreet Kinsey MD LAB SEND OUT ORDERAB LES [facility] [place] [address] * (ABNORMAL) Protein Electrophoresis, serum (08/25/2023 11:28 [...] Kinsey MD CHEMISTRY ORDERABLES Performing Organization Address City/[facility]/ZIP Co de Phone Number [facility] [place] [address] * (ABNORMAL) Free Light Chains, Serum (08/25/2023 11:28 AM EDT) [place] Free Light Chain 3.09(H) 0.72 - 2.75 mg/dL [facility] Lambda Free Light Chain 1.65 0.57 - 2.15 mg/dL [facility] [place]/Lambda FLC Ratio 1.8727 0.4000 - 2.5800 [facility] Blood 08/25/2023 11:2 8 AM EDT 08/25/2023 11:36 AM EDT Narrative Resulting Agency Comment Spec In Lab Jaspreet Kinsey MD CHEMISTRY ORDERABLES Performing Organization Address [facility] Co de Phone Number [facility] [place] [address] * Iron and TIBC (08/25/2023 11:28 AM [...] Kinsey MD CHEMISTRY ORDERABLES Performing Organization Address City/[facility]/ZIP Co de Phone Number [facility] [place] [address] * Ferritin (08/25/2023 11:28 AM EDT) Pathologist [facility] Ferritin 110 11 - 328 ng/mL [facility] Comment: Please note that as of 02/10/2023, the reference intervals for Ferritin have been updated. Blood 08/25/2023 11:2 8 AM EDT 08/25/2023 11:37 AM EDT Narrative Resulting Agency Comment Spec In Lab Jaspreet Kinsey MD CHEMISTRY ORDERABLES Performing Organization Address [facility] Co de Phone Number [facility] [place] [address] * Lyme IgG & IgM Antibody (08/25/2023 11:28 AM EDT) [facility] Lyme Antibody Negative Negative [facility] Lyme Ab Comment Negative result does not exclude possibility of infection. [facility] Comment: Please note that as of 07/14/2022 that this testing is performed by the Special Chemistry Laboratory at [facility]. This change in testing location is associated with a change in testing methodology. Blood 08/25/2023 11:2 8 AM EDT 08/26/2023 7:26 AM EDT Narrative Resulting Agency Comment Spec In Lab Jaspreet Kinsey MD IMMUNOLOGY ORDERABLE S Performing Organization Address [facility] Co de Phone Number [facility] [place] [address] * Streptococcal Antibody Panel (08/25/2023 11:28 AM EDT) Pathologist [facility] Aso Titer (JULY) 25 0 - 530 IU/mL [facility] Comment: Test Performed by: [facility] [place] [address] Social Work Lecturer: Nellie Haney Ph.D.; CLIA# [id number] Dnase B Ab (JULY) 146 0 - 300 unit/mL [facility] Comment: Test Performed by: [facility] [employer] [place] [id number] Social Work Lecturer: Nellie Haney Ph.D.; CLIA# [id number] Blood 08/25/2023 11:2 8 AM EDT 08/25/2023 1:02 PM EDT Narrative Resulting Agency Comment Spec In Lab Jaspreet Kinsey MD LAB SEND OUT ORDERAB LES [facility] [place] [address] documented in this encounter Visit Diagnoses Diagnosis Heart failure with preserved ejection fraction, unspecified HF chronicity Chronic kidney disease, unspecified CKD stage Altered bowel function Other symptoms involving digestive system Depression, unspecified depression type documented in this encounter Care Teams Accounting Assistant Relationship Specialty Start Date End Date Polo Pearce PA [address] [place] [address] PCP - General Internal Medicine 06/09/21 documented as of this encounter
--- OUTSIDE RECORDS SUMMARY | 2024-01-24 12:30 | XMS_ITS | Encounter Summary ---
[place] [address] Care Team Providers Care Tape Recorder Repairer Name Role Phone Polo Pearce Primary Care Provider [phone] Encounter Details Date Type Department Care Team (Late st Contact Info) Description 08/03/2023 8:30 AM EDT Tech [place] [address] Eladio Boyer Mesenteric ischemia Social History Tobacco Use Types Packs/Day Years Used Date Smoking Tobacco: Never Smokeless Tobacco: Never Alcohol Use Standard Drinks/Week Comments Never 0 (1 standard drink = 0.6 oz pur e alcohol) [facility] Utilities Answer Date Recorded In the past 12 months has e [employer] [employer], gas, oil, or water [employer] threatened to shut off services in your [...] 1:00 PM EST Office Visit Cardiology at [address] [address] Jaspreet Kinsey MD [facility] [place] [address] documented as of this encounter Procedures Procedure Name Priority Date/Time Associated Diagnosis Comments MESENTERIC COMPLETE Routine 08/03/2023 8 :36 AM EDT Mesenteric ischemia documented in this encounter Results * Duplex Study Visceral Arteries, Comp (08/03/2023 8:36 AM EDT) VB Text Report Department: Vascular Surgery Lab Patient: [id number] (LOIDA ROQUE) CPT: [id number] Referring Physician: MAMIE MARX ?? Phone: Indications: S/p SMA stenting (07/01) one month f/u, ? patency Findings: Unilateral ? Waveform ? PSV cm/s ??EDV cm/s ??Patent ?? Dary Visceral Aorta ? 71 ?14 ? Celiac Artery, Proximal ??[place]-Biphasic ? 100 ?22 ? Celiac Artery, Mid ? [place]-Biphasic ?99 ?19 ? Celiac Artery, Distal ?[place]-Biphasic ?94 ?18 ? Sup Mes Artery Proximal [...] within mesenteric artery stents may differ from [place] arteries, with thresholds for diagnosis of significant stenosis likely being somewhat higher in stented arteries than [place].% To date, there is no evidence based consensus of stent velocity criteria. Therefore, the current interpretation is based on [place] artery thresholds. Previous Celiac/Mesenteric Studies: Date ? [...] intestine documented in this encounter Care Teams Tape Recorder Repairer Relationship Specialty Start Date End Date Polo Pearce PA [address] [place] [address] PCP - General Internal Medicine 06/09/21 documented as of this encounter
--- OUTSIDE RECORDS SUMMARY | 2024-01-24 12:30 | XMS_ITS | Encounter Summary ---
Author Organization [facility] Address [facility] [place] [address] Care Team Providers Care Dispensary Technician Name Role Phone Polo Pearce Primary Care Provider [phone] Encounter Details Date Type Department Care Team [...] th e electric, gas, oil, or water [employer] threatened to shut off services in your [...] PM EST Office Visit Cardiology at [address] [address] Jaspreet Kinsey MD [facility] [place] [address] documented as of this encounter Visit Diagnoses Not on filedocumented in this encounter Care Teams Dispensary Technician Relationship Specialty Start Date End Date Polo Pearce PA [address] [place] [address] PCP - General Internal Medicine 06/09/21 documented as of this encounter
--- OUTSIDE RECORDS SUMMARY | 2024-01-24 12:30 | XMS_ITS | Encounter Summary ---
Author Organization [facility] [place] [address] Care Team Providers Care President And Chief Commercial Officer Name Role Phone Polo Pearce Primary Care Provider [phone] Reason for Referral * Diagnostic Test (Routine) - Pending Review Specialty Diagnoses / Procedures Referred By Contac t Referred To Contact Cardiology Diagnoses Chest pain, unspecified type Procedures Nuclear Pharmacologic Stress Cardiology (PET CT Mobile) Porsha Mcdaniels MD [facility] [place] [place] [address] [facility] [place] [address] Referral ID Status Reason Start Date Expiration Date Visits Requested Visits Authorized [id number] Pending Review Specialty Service Requested 07/29/2023 07/28/2024 1 1 Reason for Visit * Diagnostic Test (Routine) - Pending Review Specialty Diagnoses / Procedures Referred By Contac t Referred To Contact Cardiology Diagnoses Chest pain, unspecified type Procedures Nuclear Pharmacologic Stress Cardiology (PET CT Mobile) Porsha Mcdaniels MD [facility] [place] [place] [address] [facility] [place] [address] Referral ID Status Reason Start Date Expiration Date Visits Requested Visits Authorized [id number] Pending Review Specialty Service Requested 07/29/2023 07/28/2024 1 1 Encounter Details Date Type Department Care Team (Latest Contact Info) Description 08/17/2023 11:53 AM EDT - 08/17/2023 11:59 PM EDT Hospital Encounter [place] [phone] Porsha Mcdaniels MD [facility] [place] [address] Chest pain, unspecified type Discharge Disposition: Home Social History Tobacco Use Types Packs/Day Years Used Date Smoking Tobacco: Never Smokeless Tobacco: Never Alcohol Use Standard Drinks/Week Comments Never 0 (1 standard drink = 0.6 oz pur e alcohol) [facility] Utilities Answer Date Recorded In [...] as needed. fluticasone propionate (FLONASE) 50 mcg/actuation [place], Suspension 1 spray by Each Nare route [...] mouth daily. 45 tablet 3 07/26/2023 09/10/2023 torsemide (Demadex) 20 mg tabletIndications:Heart failure with [...] mg by mouth daily as needed. 10/26/2023 amLODIPine (Norvasc) 2.5 mg tablet Take 1 tablet by mouth daily. 90 tablet 3 04/23/2023 09/10/2023 omeprazole (PriLOSEC) 20 mg Capsule, Delayed Release(E.C.) Take 20 mg by mouth daily. Infrequent use 01/27/2022 08/25/2023 documented as of this encounter Plan of Treatment Upcoming Encounters Date Type Department Care Team (Late st Contact Info) Description 02/10/2024 1:00 PM EST Office Visit Cardiology at [address] [place] [address] Jaspreet Kinsey MD [facility] [place] [address] documented as of this encounter Procedures Procedure [...] type documented in this encounter Care Teams President And Chief Commercial Officer Relationship Specialty Start Date End Date Polo Pearce PA [address] [place] [address] PCP - General Internal Medicine 06/09/21 documented as of this encounter
--- OUTSIDE RECORDS SUMMARY | 2024-01-24 12:30 | XMS_ITS | Encounter Summary ---
[place] [address] Care Team Providers Care Pedodontist Name Role Phone Polo Pearce Primary Care Provider [phone] Reason for Visit * Auth/Cert (Routine) Specialty Diagnoses / Procedures Referred By Contac t Referred To Contact Diagnoses NSTEMI (non-ST elevated myocardial infarction) NSTEMI Procedures EMERGENCY MICHELLEI [place] [address] [facility] Referral ID Status Reason Start Date Expiration Date Visits Re quested Visits Authorized [id number] 1 1 Encounter Details Date Type Department Care Team (Late st Contact Info) Description 08/25/2023 12:55 PM EDT Laboratory Appointment Lab [address] [place] [address] Social History Tobacco Use Types Packs/Day Years [...] 1:00 PM EST Office Visit Cardiology at [address] [place] [address] Jaspreet Kinsey MD [facility] [place] [address] documented as of this encounter Visit Diagnoses Not on filedocumented in this encounter Care Teams Pedodontist Relationship Specialty Start Date End Date Polo Pearce PA [address] [place] [address] PCP - General Internal Medicine 06/09/21 documented as of this encounter
--- OUTSIDE RECORDS SUMMARY | 2024-01-24 12:30 | XMS_ITS | Encounter Summary ---
Author Organization [facility] Address [facility] [place] [address] Care Team Providers Care Souvenir [address] Vendor Name Role Phone Polo Pearce Primary Care Provider [phone] Encounter Details Date Type Department Care Team [...] th e electric, gas, oil, or water Contacts+ threatened to shut off services in your [...] 1:00 PM EST Office Visit Cardiology at [address] [place] [address] Jaspreet Kinsey MD [facility] [place] [address] documented as of this encounter Visit Diagnoses Not on filedocumented in this encounter Care Teams Souvenir [address] Vendor Relationship Specialty Start Date End Date Polo Pearce PA [address] [place] [address] PCP - General Internal Medicine 06/09/21 documented as of this encounter
--- OUTSIDE RECORDS SUMMARY | 2024-01-24 12:30 | XMS_ITS | Encounter Summary ---
Author Organization [facility] [address] Care Team Providers Care Assistant Superintendent Name Role Phone Polo Pearce Primary Care Provider [phone] Reason for Referral * Diagnostic Test (Routine) - Closed Specialty Diagnoses / Procedures Referred By Contac t Referred To Contact Radiology Diagnoses Chest pain, unspecified type Procedures NM PET CT Cardiac Pharmacologic Stress CT Component Porsha Mcdaniels MD [facility] [place] [address] [place] [address] Referral ID Status Reason Start Date Expiration Date V isits Requested Visits Authorized [id number] Closed Specialty Service Requested 08/03/2023 10/01/2023 1 1 * Diagnostic Test (Routine) - Closed Specialty Diagnoses / Procedures Referred By Contac t Referred To Contact Radiology Diagnoses Chest pain, unspecified type Procedures NM PET CT Cardiac Pharmacologic Stress and Rest Porsha Mcdaniels MD [facility] [place] [address] [place] [address] Referral ID Status Reason Start Date Expiration Date V isits Requested Visits Authorized [id number] Closed Specialty Service Requested 08/03/2023 10/01/2023 1 1 * Diagnostic Test (Routine) - Pending Review Specialty Diagnoses / Procedures Referred By Contac t Referred To Contact Cardiology Diagnoses Chest pain, unspecified type Procedures Nuclear Pharmacologic Stress Cardiology (PET CT Mobile) Porsha Mcdaniels MD [facility] [place] [address] [facility] [place] [address] Referral ID Status Reason Start Date Expiration Date Visits Requested Visits Authorized [id number] Pending Review Specialty Service Requested 07/29/2023 07/28/2024 1 1 Reason for Visit * Consultation (Routine) - Closed Specialty Diagnoses / Procedures Referred By Jayant t Referred To Contact Cardiology Diagnoses Heart failure with preserved ejection fraction, unspecified HF chronicity MINOCA. thorough evaluation performed to date. Jaspreet Kinsey MD [facility] [place] [address] Porsha Mcdaniels MD [facility] [place] [address] Referral ID Status Reason Start Date Expiration Date V isits Requested Visits Authorized [id number] Closed Consult, Test & Treat 06/09/2023 06/08/2024 1 1 Encounter Details Date Type Department Care Team (Late st Contact Info) Description 07/29/2023 8:00 AM EDT Office Visit Cardiology at [address] [address] Porsha Mcdaniels MD [facility] [place] [address] Chest pain, unspecified type Social History Tobacco [...] the original note were not included. Formerly [facility] [place] [address] Referring Provider: Jaspreet Kinsey [place] [address] Reason for Consultation / Chief Complaint: [place]A [...] [place]. She follows with Dr. Kinsey in [place]. She underwent CCTA 09/27 that showed mild disease in her LAD. She also had a cardiac cath in 2019 with normal cors. [facility] from [facility] due to exertional chest pressure and [...] and no concomitant arrhythmias Was [facility] early last month for malaise, chest pain [...] , Rfl: fluticasone propionate (FLONASE) 50 mcg/actuation [place], Suspension, 1 spray by Each Nare route [...] 2+ radial pulse LUE: 2+ radial pulse MELT HELPER: Normal mentation. Moves all extremities without limitation. [...] Porsha Mcdaniels MD Section of Interventional Cardiology [facility] Consumer Loan Officertar kettle runner [facility]ly [facility] 07/29/2023 documented in this encounter Plan of Treatment Upcoming Encounters Date Type Department Care Team (Late st Contact Info) Description 02/10/2024 1:00 PM EST Office Visit Cardiology at [address] [place] [address] Jaspreet Kinsey MD [facility] [place] [address] documented as of this encounter Procedures Procedure Name Priority Date/Time Associated Diagnosis Comments EKG 12-LEAD Routine 07/29/2023 8:47 AM EDT Chest pain, unspecified type documented in this encounter Results * NM PET CT Cardiac Pharmacologic Stress CT Component (08/17/2023 2:38 PM EDT) WORKSTATION ID [id number] RAD Anatomical Region Laterality Modality Positron Emissio [...] have questions please contact the health healthcare account manager that requested your imaging first. ? Electronically signed by: Clay Stanton MD, [facility] ([phone]), at 08/18/2023 2:49 PM Narrative 08/18/2023 2:49 [...] Coronary calcifications. Bilateral ground glass opacities are [id number] Procedure Note Clay Stanton MD - 08/18/2023 EXAMINATION: NM PET CT CARDIAC PHARMACOLOGIC STRESS AND REST, [place] PET CTCARDIAC PHARMACOLOGIC STRESS CT COMPONENT CLINICAL [...] Coronary calcifications. Bilateral ground glass opacities are [id number] IMPRESSION Moderate-sized scar in the apical septum [...] who have questions please contactthe health healthcare account manager that requested your imaging first. Electronically signed by: Clay Stanton MD, [facility]([phone]), at 08/18/2023 2:49 PM Porsha Mcfarlane MD IMG PET ORDERABLES * NM PET CT Cardiac Pharmacologic Stress and Rest (08/17/2023 2:38 PM EDT) WORKSTATION ID [id number] [facility] Anatomical Region Laterality Modality Positron Emissio n [...] have questions please contact the health healthcare account manager that requested your imaging first. ? Electronically signed by: Clay Stanton MD, [facility] ([phone]), at 08/18/2023 2:49 PM Narrative 08/18/2023 2:49 [...] Coronary calcifications. Bilateral ground glass opacities are [id number] IMPRESSION Moderate-sized scar in the apical septum [...] who have questions please contactthe health healthcare account manager that requested your imaging first. Electronically signed by: Clay Stanton MD, [facility]([phone]), at 08/18/2023 2:49 PM Porsha Mcfarlane MD [...] (Bezet) 418 ms MUSE SYSTEM Calculated P [place] 6 degrees MUSE SYSTEM Calculated R [place] 34 degrees MUSE SYSTEM Calculated T [place] -73 degrees MUSE SYSTEM INTERPRETATION Sinus bradycardia [...] type documented in this encounter Care Teams Assistant Superintendent Relationship Specialty Start Date End Date Polo Pearce PA [address] [place] [address] PCP - General Internal Medicine 06/09/21 documented as of this encounter
--- OUTSIDE RECORDS SUMMARY | 2024-01-24 12:30 | XMS_ITS | Encounter Summary ---
Author Organization [facility] [place] [address] Care Team Providers Care Surgical Services Coordinator Name Role Phone Polo Pearce Primary Care Provider [phone] Encounter Details Date Type Department Care Team (Late st Contact Info) Description 08/28/2023 External [place] [address] Social History Tobacco Use Types Packs/Day Years [...] in a fdc (including now)? No 08/30/2023 DH IPV Inpatient [...] 1:00 PM EST Office Visit Cardiology at [address] [place] [address] Jaspreet Kinsey MD [facility] [address] documented as of this encounter Procedures Procedure Name Priority Date/Time Associated Diagnosis Comments ECG SCAN Routine 08/28/2023 11:53 AM EDT documented in this encounter Results * Scan Doc: ECG (08/28/2023 11:53 AM EDT) Historical Provider MD FLEMING MGR SCAN EX T ORDR/RSLT documented in this encounter Visit Diagnoses Not on filedocumented in this encounter Care Teams Surgical Services Coordinator Relationship Specialty Start Date End Date Polo Pearce PA [address] [place] [address] PCP - General Internal Medicine 06/09/21 documented as of this encounter
--- OUTSIDE RECORDS SUMMARY | 2024-01-24 12:30 | XMS_ITS | Encounter Summary ---
[place] [address] Care Team Providers Care Beck Tender Name Role Phone Polo Pearce Primary Care Provider [phone] Reason for Referral * Diagnostic Test (Routine) - Pending Review Specialty Diagnoses / Procedures Referred By Jayant harris Referred To Contact Diagnoses Mesenteric ischemia Procedures Duplex Study Visceral Arteries, Comp Judith Pickens APRN [facility] [place] [address] [facility] Vascular Lab [address] [place] [phone] Referral ID Status Reason Start Date Expiration Date Visits Requested Visits Authorized [id number] Pending Review Specialty Service Requested 08/03/2023 08/02/2024 1 1 Encounter Details Date Type Department Care Team (Late st Contact Info) Description 08/03/2023 9:30 AM EDT Office [place] [address] Judith Pickens APRN [facility] [place] [address] Mesenteric ischemia Social History Tobacco Use Types Packs/Day Years Used Date Smoking Tobacco: Never Smokeless Tobacco: Never Alcohol Use Standard Drinks/Week Comments Never 0 (1 standard drink = 0.6 oz pur e alcohol) [facility] Utilities Answer Date Recorded In the [...] this encounter Progress Notes * Judith Pickens, PIPE ROLLER - 08/03/2023 9:30 AM EDT Vascular Follow-Up [...] as needed. fluticasone propionate (FLONASE) 50 mcg/actuation [place], Suspension 1 spray by Each Nare route [...] Text Report Department: Vascular Surgery Lab Patient: [id number] (LOIDA ROQUE) CPT: [id number] Referring Physician: MAMIE LARRY Phone: Indications: S/p SMA stenting (07/01) one month f/u, ? 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 Therefore, the curre nt interpretation is based on [place] artery thresholds. Previous Celiac/Mesenteric Studies: Date SMA PSV EDV Celiac PSV EDV 427 91 113 10 1873/04/29 289 27 116 20 Current Exam 316 [...] Time Provider Department Center 08/17/2023 1:15 PM [facility] NM PET MOBILE MH Nuc Med [facility] Rad 08/25/2023 10:00 AM Mary Reyes APRN [facility] GASTRO [facility] 10/26/2023 4:00 PM Jaspreet Kinsey MD [facility] Cardio [facility] 11/22/2023 4:40 PM Porsha Mcdaniels MD [facility] CARD 4A [facility] Judith Pickens APRN Department of Vascular Surgery documented in this encounter Plan of Treatment Upcoming Encounters Date Type Department Care Team (Late st Contact Info) Description 02/10/2024 1:00 PM EST Office Visit Cardiology at [address] [place] [address] Jaspreet Kinsey MD [facility] [address] documented as of this encounter Results * Duplex Study Visceral Arteries, Comp (10/08/2023 8:22 AM EDT) VB Text Report Department: Vascular Surgery Lab Patient: [id number] (LOIDA ROQUE) CPT: [id number] Referring Physician: JUDITH PICKENS ?? Phone: Indications: [...] within mesenteric artery stents may differ from [place] arteries, with thresholds for diagnosis of significant stenosis likely being somewhat higher in stented arteries than [place].% To date, there is no evidence based consensus of stent velocity criteria. Therefore, the current interpretation is based on [place] artery thresholds. Previous Celiac/Mesenteric Studies: Date ? [...] VASCU[facility] 10/08/2023 8:22 AM EDT Judith Pickens PIPE ROLLER VASCULAR ORDERABLES [facility]CU[facility] documented in this encounter Visit Diagnoses Diagnosis Mesenteric ischemia Unspecified vascular insufficiency of intestine documented in this encounter Care Teams Beck Tender Relationship Specialty Start Date End Date Polo Pearce PA [address] [place] [address] PCP - General Internal Medicine 06/09/21 documented as of this encounter
--- OUTSIDE RECORDS SUMMARY | 2024-01-24 12:30 | XMS_ITS | Encounter Summary ---
Author Organization [facility] [place] [address] Care Team Providers Care Pharmacy Laboratory Technician Name Role Phone Polo Pearce Primary Care Provider [phone] Reason for Referral * Diagnostic Test (Routine) - Closed Specialty Diagnoses / Procedures Referred By Contac t Referred To Contact Radiology Diagnoses Chest pain, unspecified type Procedures NM PET CT Cardiac Pharmacologic Stress CT Component Porsha Mcdaniels MD [facility] [place] [address] [place] [address] Referral ID Status Reason Start Date Expiration Date V isits Requested Visits Authorized [id number] Closed Specialty Service Requested 08/03/2023 10/01/2023 1 1 * Diagnostic Test (Routine) - Closed Specialty Diagnoses / Procedures Referred By Contac t Referred To Contact Radiology Diagnoses Chest pain, unspecified type Procedures NM PET CT Cardiac Pharmacologic Stress and Rest Porsha Mcdaniels MD [facility] [place] [address] [place] [address] Referral ID Status Reason Start Date Expiration Date V isits Requested Visits Authorized [id number] Closed Specialty Service Requested 08/03/2023 10/01/2023 1 1 Reason for Visit * Diagnostic Test (Routine) - Closed Specialty Diagnoses / Procedures Referred By Contac t Referred To Contact Radiology Diagnoses Chest pain, unspecified type Procedures NM PET CT Cardiac Pharmacologic Stress and Rest Porsha Mcdaniels MD [facility] [place] [address] [place] [address] Referral ID Status Reason Start Date Expiration Date V isits Requested Visits Authorized [id number] Closed Specialty Service Requested 08/03/2023 10/01/2023 1 1 Encounter Details Date Type Department Care Team (Latest Contact Info) Description 08/17/2023 11:52 AM EDT Hospital Encounter [place] [address] Porsha Mcdaniels MD [facility] [place] [address] Chest pain, unspecified type Discharge Disposition: Home Social History Tobacco Use Types Packs/Day Years Used Date Smoking Tobacco: Never Smokeless Tobacco: Never Alcohol Use Standard Drinks/Week Comments Never 0 (1 standard drink = 0.6 oz pur e alcohol) [facility] Utilities Answer Date Recorded In the past 12 months has [employer] electric, gas, oil, or water company threatened [...] as needed. fluticasone propionate (FLONASE) 50 mcg/actuation [place], Suspension 1 spray by Each Nare route [...] 1:00 PM EST Office Visit Cardiology at [address] [place] [address] Jaspreet Kinsey MD [facility] [place] [address] documented as of this encounter Procedures Procedure [...] Component (08/17/2023 2:38 PM EDT) WORKSTATION ID [id number] RAD Anatomical Region Laterality Modality Positron Emissio [...] who have questions please contact the health landcare facilitator that requested your imaging first. ? Electronically signed by: Clay Stanton MD, [facility] ([phone]), at 08/18/2023 2:49 PM Narrative 08/18/2023 2:49 [...] Coronary calcifications. Bilateral ground glass opacities are [id number] Procedure Note Clay Stanton MD - 08/18/2023 [...] Coronary calcifications. Bilateral ground glass opacities are [id number] IMPRESSION Moderate-sized scar in the apical septum [...] patients who have questions please contactthe health landcare facilitator that requested your imaging first. Porsha Mcfarlane MD IMG PET ORDERABLES * NM PET CT Cardiac Pharmacologic Stress and Rest (08/17/2023 2:38 PM EDT) WORKSTATION ID [id number] RAD Anatomical Region Laterality Modality Positron Emissio [...] who have questions please contact the health landcare facilitator that requested your imaging first. ? Electronically signed by: Clay Stanton MD, [facility] ([phone]), at 08/18/2023 2:49 PM Narrative 08/18/2023 2:49 [...] Coronary calcifications. Bilateral ground glass opacities are [id number] Procedure Note Clay Stanton MD - 08/18/2023 [...] Coronary calcifications. Bilateral ground glass opacities are [id number] IMPRESSION Moderate-sized scar in the apical septum [...] patients who have questions please contactthe health landcare facilitator that requested your imaging first. Porsha Mcfarlane MD [facility] PET ORDERABLES documented in this encounter Visit [...] Arm documented in this encounter Care Teams Pharmacy Laboratory Technician Relationship Specialty Start Date End Date Polo Pearce PA [address] [place] [address] PCP - General Internal Medicine 06/09/21 documented as of this encounter
--- OUTSIDE RECORDS SUMMARY | 2024-01-24 12:30 | XMS_ITS | Encounter Summary ---
Author Organization [facility] Address [facility] [place] [address] Care Team Providers Care Optical Instrument Inspector Name Role Phone Polo Pearce Primary Care Provider [phone] Encounter Details Date Type Department Care Team (Late st Contact Info) Description 08/28/2023 1:05 PM EDT Ancillary Procedure Radiology Library at [facility] [place] [address] Jaspreet Kinsey MD [facility] [place] [address] Social History Tobacco Use Types Packs/Day Years Used Date Smoking Tobacco: Never Smokeless Tobacco: Never Alcohol Use Standard Drinks/Week Comments Never 0 (1 standard drink = 0.6 oz pur e alcohol) [facility] Utilities Answer Date Recorded In the past 12 months has [employer] electric, gas, oil, or water [employer] threatened to shut off services in your [...] 1:00 PM EST Office Visit Cardiology at [address] [phone] Jaspreet Kinsey MD [facility] [place] [address] documented as of this encounter Procedures Procedure Name Priority Date/Time Associated Diagnosis Comments FILM LIBRARY STORAGE ONLY CT CHEST Routine 08/28/2023 1:00 PM EDT documented in this encounter Results * Film Library- Storage Only CT Chest (08/28/2023 1:00 PM EDT) Narrative RAD - 08/28/2023 1:00 PM EDT This exam is auto-finalizing. It's purpose is for storage only. Jaspreet Kinsey MD IMG FILM LIBRARY ORD ERABLES [place], [place] documented in this encounter Visit Diagnoses Not on filedocumented in this encounter Care Teams Optical Instrument Inspector Relationship Specialty Start Date End Date Polo Pearce PA [address] [place] [address] PCP - General Internal Medicine 06/09/21 documented as of this encounter
--- OUTSIDE RECORDS SUMMARY | 2024-01-24 12:31 | XMS_ITS | Encounter Summary ---
Author Organization [facility] Address [facility] [place] [address] Care Team Providers Care Hi Low Truck Driver Name Role Phone Polo Pearce Primary Care Provider [phone] Reason for Visit * Reason Comments Congestive Heart Failure Atrial Fibrillation Encounter Details Date Type Department Care Team (Late st Contact Info) Description 07/26/2023 3:20 PM EDT Office Visit Cardiology at [address] [address] Jaspreet Kinsey MD [facility] [place] [address] Heart failure with preserved ejection fraction, unspecified [...] Recorded In the past 12 months has [employer] electric, gas, oil, or water company threatened [...] Failure Atrial Fibrillation HPI Last seen by nv 05/2023, at which time the comprehensive cardiac [...] Oral, DAILY fluticasone propionate (FLONASE) 50 mcg/actuation [place], Suspension 1 spray, Each Nare, PRN gabapentin [...] sarcoid. Anterior scar pattern 06/2023: Admission at [facility] TTE with low-normal EF, though anterior [...] 9:57 AM EDT Associated Problem(s): Chest pain (Resolved 10/28/2023) This has been posited historically due to [...] ablation * Assessment & Plan Note - Jsapreet Kinsey MD - 07/29/2023 9:54 AM EDT [...] 1:00 PM EST Office Visit Cardiology at [address] [phone] Jaspreet Kinsey MD [facility] [place] [address] documented as of this encounter Visit Diagnoses Diagnosis Heart failure with preserved ejection fraction, unspecified HF chronicity Paroxysmal atrial fibrillation Atrial fibrillation SVT (supraventricular tachycardia) Other specified cardiac dysrhythmias Chest pain, unspecified type documented in this encounter Care Teams Hi Low Truck Driver Relationship Specialty Start Date End Date Polo Pearce PA Sb MOTT [address] [place] [id number] PCP - General Internal Medicine 06/09/21 documented as of this encounter
--- OUTSIDE RECORDS SUMMARY | 2024-01-24 12:31 | XMS_ITS | Encounter Summary ---
Author Organization [facility] [place] [address] Care Team Providers Care Fish Smoker Name Role Phone Polo Pearce Primary Care Provider [phone] Encounter Details Date Type Department Care Team (Late st Contact Info) Description 07/13/2023 Telephone Cardiology at [address] [phone] Sydney Gamez RN Social History Tobacco Use Types Packs/Day Years Used Date Smoking Tobacco: Never Smokeless Tobacco: Never Alcohol Use Standard Drinks/Week Comments Never 0 (1 standard drink = 0.6 oz pur e alcohol) [facility] Utilities Answer Date Recorded In the past 12 months has e [employer], gas, oil, or water [employer] threatened to shut off services in your [...] the letter emailed [facility] at [email or web address] when completed. Will forward to her providers [...] appointments: During 8am-5pm Wednesday through Wednesday call [phone] to speak with a nurse in the cardiology clinic All other times call [phone] and ask to speak to the flight line mechanic health information tech. Return to work: One week Driving: No driving for 48 hours after catheterization. Follow up Appointments: PCP JOCY Franco [phone] 11:30am on July 19. Cardiology office will [...] 1:00 PM EST Office Visit Cardiology at [address] [place] [address] Jaspreet Kinsey MD [facility] [place] [address] documented as of this encounter Visit Diagnoses Not on filedocumented in this encounter Care Teams Fish Smoker Relationship Specialty Start Date End Date Polo Pearce PA [address] [place] [address] PCP - General Internal Medicine 06/09/21 documented as of this encounter
--- OUTSIDE RECORDS SUMMARY | 2024-01-24 12:31 | XMS_ITS | Encounter Summary ---
Author Organization [facility] Address [facility] [place] [address] Care Team Providers Care Optical Advisor Name Role Phone Polo Pearce Primary Care Provider [phone] Encounter Details Date Type Department Care Team (Late st Contact Info) Description 07/12/2023 Refill Cardiology at [address] [phone] Jaspreet Kinsey MD [facility] [place] [address] Social History Tobacco Use Types Packs/Day Years Used Date Smoking Tobacco: Never Smokeless Tobacco: Never Alcohol Use Standard Drinks/Week Comments Never 0 (1 standard drink = 0.6 oz pur e alcohol) [facility] Utilities Answer Date Recorded In the past 12 months has e electric, gas, oil, or water [employer] threatened to shut off services in [...] mg., 2-2x daily, none left. Patient uses [facility] in [place], [place]. She can be reached @ [phone]. documented in this encounter Plan of Treatment Upcoming Encounters Date Type Department Care Team (Late st Contact Info) Description 02/10/2024 1:00 PM EST Office Visit Cardiology at [address] [place] [address] Jaspreet Kinsey MD [facility] [place] [address] documented as of this encounter Visit Diagnoses Diagnosis Heart failure with preserved ejection fraction, unspecified HF chronicity documented in this encounter Care Teams Optical Advisor Relationship Specialty Start Date End Date Polo Pearce PA [address] [place] [address] PCP - General Internal Medicine 06/09/21 documented as of this encounter
--- OUTSIDE RECORDS SUMMARY | 2024-01-24 12:31 | XMS_ITS | Encounter Summary ---
Author Organization [facility] Address [facility] [place] [address] Care Team Providers Care Armhole Baster Jumpbasting Name Role Phone Polo Pearce Primary Care Provider [phone] Encounter Details Date Type Department Care Team (Latest Contact Info) Description 07/26/2023 Travel Social History Tobacco Use Types Packs/Day Years Used Date Smoking Tobacco: Never Smokeless Tobacco: Never Alcohol Use Standard Drinks/Week Comments Never 0 (1 standard drink = 0.6 oz pur e alcohol) [facility] Utilities Answer Date Recorded In the past 12 months has th e electric, gas, oil, or water [employer] threatened to shut off services in your [...] 1:00 PM EST Office Visit Cardiology at [address] [place] [address] Jaspreet Kinsey MD [facility] [place] [address] documented as of this encounter Visit Diagnoses Not on filedocumented in this encounter Care Teams Armhole Baster Jumpbasting Relationship Specialty Start Date End Date Polo Pearce PA [address] [place] [id number] PCP - General Internal Medicine 06/09/21 documented as of this encounter
--- OUTSIDE RECORDS SUMMARY | 2024-01-24 12:32 | XMS_ITS | Encounter Summary ---
[place] [address] Care Team Providers Care Automatic Nailing Machine Feeder Name Role Phone Polo Pearce Primary Care Provider [phone] Reason for Referral * Consultation (Routine) - Duplicate Referral Specialty Diagnoses / Procedures Referred By Jayant harris Referred To Contact Gastroenterology Diagnoses Mesenteric artery stenosis Terrence Keating MD [facility] [place] [address] [facility] [address] [place] [phone] Referral ID Status Reason Start Date Expiration Date Visits Requested Visits Authorized [id number] Duplicate Referral Consult, Test & Treat 07/09/2023 07/08/2024 1 1 * Home Health Care (Routine) - Closed Specialty Diagnoses / Procedures Referred By Contjulita t Referred To Contact Diagnoses Paroxysmal atrial fibrillation Chest pain, unspecified type Heart failure with preserved ejection fraction, unspecified HF chronicity Terrence Keating MD [facility] [place] [address] [facility] [address] [place] [address] Referral ID Status Reason Start Date Expiration Date V isits Requested Visits Authorized [id number] Closed Consult, Test & Treat 07/09/2023 01/05/2024 999 999 Reason for Visit * Auth/Cert (Routine) Specialty Diagnoses / Procedures Referred By Contac t Referred To Contact Diagnoses NSTEMI (non-ST elevated myocardial infarction) NSTEMI Procedures ER IPI Terrence Keating MD [facility] [place] [address] [facility] Referral ID Status Reason Start Date Expiration Date Visits Re quested Visits Authorized [id number] 1 1 Encounter Details Date Type Department Care Team (Latest Contact Info) Description 06/14/2023 11:01 PM EDT - 07/09/2023 4:44 PM EDT Hospital Encounter Heart and Vascular Unit Level 4 Wing B at [place] [id number] Jaspreet Kinsey MD [facility] [place] [address] [place] [address] Lino Calles MD [facility] [place] [address] Eufemia Copeland MD [facility] [place] [address] Ailyn Irvin MD [facility] [place] [address] Terrence Keating MD [facility] [place] [address] Paroxysmal atrial fibrillation; Chest pain, unspecified type; [...] drink = 0.6 oz pur e alcohol) [facility] Utilities Answer Date Recorded In [...] Yes 06/15/2023 Housing Stability Vital Sign Answer Imtchell e [...] Loida Roque Patient Age: 53 y.o. Language: Iraqi Race: White Ethnicity: Not nor Admit date: 06/14/2023 Discharge date and time: 07/09/2023 3:31 PM Attending Physician: Terrence Keating MD Discharge Physician: Terrence Keating MD Follow-up Recommendations for Providers: Inpatient Provider Contact Information: For questions regarding this document or issues relating to this hospitalization on the Medical Service, please contact your inpatient physician through the [facility] Digital Retoucher . Issues afterhours and on weekends will [...] care nurse that requested your imaging first. Abdomen & [...] care nurse that requested your imaging first. Chest One [...] care nurse that requested your imaging first. Abdomen Limited (Exam End: 06/28/2023 12:22 PM) Result Value WORKSTATION ID [id number] Narrative Abdominal (Signed Final 06/28/2023 02:08 pm) PATIENT INFO: ID #: [id number] : [birth year] (53 yrs)(F) Name: LOIDA Visit Date: 06/28/2023 12:20 pm ROHAN PERFORMED BY: Attending: Sigrid Owens MD Resident: Rafaela Huddleston MD Performed By: Deena Cabrera RDMS Referred By: AILYN IRVIN Location: [place] SERVICE(S) PROVIDED: UABDLIM - Abdominal Limited Survey Single [id number] Organ or Quadrant - [id number] INDICATIONS: RUQ pain, R/o Gall bladder colic, [...] who have questions, please contact the health post acute care nurse that requested your imaging first. Sigrid Owens, [facility] Coverstitch Binder Electronically Signed Final Report 06/28/2023 02:08 pm [...] anesthetic: 10 cc 1% lidocaine Heparin: Yes 43090 Units Protamine: No mg Antibiotics: Ancef Fluoro [...] We exchanged the sheath for a 7 Kittitian guide escort steerable sheath over a stiff wire. A Glidewire and Kumpe catheter were used to selectively cannulate the superior mesenteric artery. Direct angiography of the superior mesenteric artery was performed, confirming the results of the nonselective aortography performed. The lesion was predilated with a 4 mm x 40 mm Malcolm balloon, and then a 6 mm X [...] 07/03/2023 3:18 PM) Result Value WORKSTATION ID [id number] Narrative EXAMINATION: XR CHEST ONE VIEW CLINICAL [...] care nurse that requested your imaging first. Echocardiogram from [...] pain. The patient was recently admitted at [facility] from 04/16/23 to 04/19/2023 as a transfer from [facility] due to exertional chest pressure [...] etiology, patient was accepted for transfer to [facility]. Brief Summary: Loida Roque [...] with positive cardiac markers. Patient transferred to [facility] for further work-up and [...] Administered Date(s) Administered Moderna Covid-19 Monovalent 12Yr+ (Correctional Therapy Teacher 100mcg) 03/06/2020, 04/03/2020 Discharge Medications: Your Medications [...] weight gain + increasing shortness of breath. [id number] minutes prior to a dose of torsemide). [...] appointments: During 8am-5pm Wednesday through Wednesday call [phone] to speak with a nurse in the cardiology clinic All other times call [phone] and ask to speak to the room service waiter business system consultant. Return to work: One week Driving: No driving for 48 hours after catheterization. Follow up Appointments: PCP JOCY Franco [phone] 11:30am on July 19. Cardiology office will call you regarding your appointment with Dr. Kinsey. General Instructions None Future Appointments and Orders Future Appointments and Orders Future Appointments Provider Department Dept Phone 07/26/2023 3:20 PM Jaspreet Kinsey MD Cardiology at [place] Arrive at: [facility] [address] [phone] 07/29/2023 8:00 AM Porsha Mcdaniels MD Cardiology at [facility] Arrive at: D[facility] Area [address]A [phone] 08/03/2023 8:30 AM Eladio Boyer Vascular [facility] at [facility] Arrive at: Dining Room [facility] Area 3V [phone] 08/03/2023 9:30 AM Judith Butler APRN Vascular Surgery at [facility] Arrive at: Dining Room Captain Area 3V [phone] 09/02/2023 2:40 PM Jaspreet Kinsey MD Cardiology at [place] Arrive at: [facility] [address] [phone] Discharge References/Attachments None Greater than 30 minutes was spent on this discharge including documentation, [id number]-[id number] time withthe patient, patient education, cost recorder, coordination with pharmacy and other patient [...] appointments: During 8am-5pm Wednesday through Wednesday call [phone] to speak with a nurse in the cardiology clinic All other times call [phone] and ask to speak to the room service waiter business system consultant. Return to work: One week Driving: No driving for 48 hours after catheterization. Follow up Appointments: PCP JOCY Franco [phone] 11:30am on July 19. Cardiology office will [...] by mouth nightly. empagliflozin (Jardiance) 10 mg TabletIndications:Chroni c heart failure with preserved ejection fraction Take 1 tablet by mouth daily. 90 tablet 1 06/11/2021 rOPINIRole (Requip) 1 mg Tablet Take 2 mg by mouth 2 times daily. 07/16/2020 loratadine (Claritin) 10 mg Tablet Take 10 mg by mouth daily as needed. fluticasone propionate (FLONASE) 50 mcg/actuation Dyess, Suspension 1 spray by Each Nare route [...] for 30 days. 60 tablet 07/09/2023 07/26/2023 metOLazone (Zaroxolyn) 2.5 mg tablet Take 1 tablet by mouth as needed (take daily for weight gain + increasing shortness of breath. take 30-60 minutes prior to a dose of torsemide). 30 tablet 06/09/2023 10/26/2023 rimegepant (Nurtec ODT) 75 mg disintegrating tablet Take 75 mg by mouth daily as needed. 10/26/2023 torsemide (Demadex) 20 mg tablet Take 2 [...] 4pm, per the team. Please refer to: [facility]. [address] [facility] [address] PHONE: [phone] FAX: [phone] *For RN RICARDO: 07/09/23 Nani Mendoza MSN-Ed, RN ACM Cardiac Research Nurse and Neuro/Neurocrit/ENT Animal Rehabilitator. * Mary Castaneda RCP - 07/09/2023 4:37 [...] 1:00 PM EDT [facility] - [facility] DAILY PROGRESS NOTE Page [phone] to reach a provider 28/09 Admit Date: [...] with positive cardiac markers. Patient transferred to [facility] for further work-up and [...] prn. Diet: Daily Healthy Menu Choices/Cardiac diet ([facility]-Diet) DVT Prophylaxis: DOAC heparin gtt. 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 24 Hour Events/Subjective: HITESH - nedra reports abdominal pain today - Weight 222 [...] She is alert. Labs: Recent Labs 07/07/23 03507/06/23 0354 07/05/23 0505 07/04/23 0347 07/03/23 0307 [...] with positive cardiac markers. Patient transferred to [facility] for further work-up and [...] Score: 24 PT: OT: PCP JOCY Franco [phone] Terrence Keating MD 07/07/2023 * Terrence Keating MD - 07/06/2023 11:00 AM EDT [facility] - [facility] DAILY PROGRESS NOTE Page [phone] to reach a provider 28/09 Admit Date: 06/14/2023 Encounter Date July 06, 2023 Anticipated Discharge Date: 07/07/2023 Hospital Day: 22 Active Hospital Problems Diagnosis NSTEMI (non-ST elevated myocardial infarction) Resolved Hospital Problems No resolved problems to display. 24 Hour Events/Subjective: NAEON - reports 10/10 abdominal pain today - Weight 220lb downtrending, [...] with positive cardiac markers. Patient transferred to [facility] for further work-up and [...] hospital Diet: Daily Healthy Menu Choices/Cardiac diet ([facility]-Diet) NPO diet (Give Meds) DVT Prophylaxis: DOAC Code status: Attempt Cardiopulmonary Resuscitation - Inpatient Disposition: Discharge Location: AM-PAC Basic Mobility Raw Score: 24 PT: OT: PCP JOCY Franco [phone] Terrence Keating MD 07/06/2023 * Ana Paula [...] 11:00 AM EDT [facility] 2 - [facility] DAILY PROGRESS NOTE Page [phone] to reach a provider 28/09 Admit Date: [...] Continuous Infusions: heparin (porcine) infusion 850 Units/hr (07/04/230) PRN Meds:.acetaminophen, albuteroL, ondansetron, heparin (porcine) infusion [...] with positive cardiac markers. Patient transferred to [facility] for further work-up and [...] hospital Diet: Daily Healthy Menu Choices/Cardiac diet ([facility]-Diet) DVT Prophylaxis: DOAC Code status: Attempt Cardiopulmonary Resuscitation - Inpatient Disposition: Discharge Location: AM-[facility] Basic Mobility Raw Score: 24 PT: OT: PCP JOCY Franco [phone] Terrence Keating MD 07/05/2023 * Lino Calles MD - 07/04/2023 9:09 AM EDT [facility] H[facility]PITALIST 2 - [facility] DAILY PROGRESS NOTE Page [phone] to reach a provider 28/09 Admit Date: [...] with positive cardiac markers. Patient transferred to [facility] for further work-up and [...] migraine Diet: Daily Healthy Menu Choices/Cardiac diet ([facility]-Diet) DVT Prophylaxis: DOAC Code status: Attempt Cardiopulmonary Resuscitation - Inpatient Disposition: Discharge Location: AM-PAC Basic Mobility Raw Score: 24 PT: OT: PCP JOCY Franco [phone] Lino Calles MD 07/04/2023 * Ana Paula [...] NOC CPAP. Marifer Painting RCP * Lino Callse MD - 07/03/2023 8:59 AM EDT [facility] 2 - [facility] DAILY PROGRESS NOTE Page [phone] to reach a provider 28/09 Admit Date: [...] Labs 06/15/23 0428 04/18/23 0210 04/17/23 0333 12/04/220709/27/22 0307 TSH 2.98 -- 5.93* 4.00 -- [...] with positive cardiac markers. Patient transferred to [facility] for further work-up and [...] PRN Diet: Daily Healthy Menu Choices/Cardiac diet ([facility]-Diet) DVT Prophylaxis: DOAC Code status: Attempt Cardiopulmonary Resuscitation - Inpatient Disposition: Discharge Location: AM-PAC Basic Mobility Raw Score: 24 PT: OT: PCP JOCY Franco [phone] Lino Calles MD 07/03/2023 * Van Muse [...] 9:55 AM EDT [facility] 2 - [facility] DAILY PROGRESS NOTE Page [phone] to reach a provider 28/09 Admit Date: [...] with positive cardiac markers. Patient transferred to [facility] for further work-up and [...] PRN Diet: Daily Healthy Menu Choices/Cardiac diet ([facility]-Diet) DVT Prophylaxis: DOAC Code status: Attempt Cardiopulmonary Resuscitation - Inpatient Disposition: Discharge Location: AM-PAC Basic Mobility Raw Score: 24 PT: OT: PCP JOCY Franco [phone] Lino Calles MD 07/02/2023 * Jaspreet Griffith RCP - 07/02/2023 6:35 AM EDT Respiratory Care [...] 7:39 AM EDT [facility] 2 - [facility] DAILY PROGRESS NOTE Page [phone] to reach a provider 28/09 Admit Date: [...] Infusions: heparin (porcine) infusion 850 Units/hr (06/30/23 230) PRN Meds:.oxyCODONE-acetaminophen, ondansetron, heparin (porcine) infusion AND [...] with positive cardiac markers. Patient transferred to [facility] for further work-up and [...] PRN Diet: Daily Healthy Menu Choices/Cardiac diet ([facility]-Diet) NPO diet (Give Meds) DVT Prophylaxis: DOAC Code status: Attempt Cardiopulmonary Resuscitation - Inpatient Disposition: Discharge Location: AM-[facility] Basic Mobility Raw Score: 24 PT: OT: PCP JOCY Franco [phone] Terrence Keating MD 07/01/2023 * Terrence Keating MD - 06/30/2023 8:00 AM EDT [facility] 2 - [facility] DAILY PROGRESS NOTE Page [phone] to reach a provider 28/09 Admit Date: [...] 9.3 9.1 < > 9.6 BUN 18 * 24* 24* 26* < > 25* CREATININE [...] with positive cardiac markers. Patient transferred to [facility] for further work-up and [...] Score: 24 PT: OT: PCP JOCY Franco [phone] Terrence Keating MD 06/30/2023 * Terrence Keating MD - 06/29/2023 4:29 PM EDT [facility] 2 - [facility] DAILY PROGRESS NOTE Page [phone] to reach a provider 28/09 Admit Date: [...] She is alert. Labs: Recent Labs 06/29/23 02306/28/23 0152 06/27/23 0434 06/26/23 0406 06/25/23 0150 [...] with positive cardiac markers. Patient transferred to [facility] for further work-up and [...] Score: 24 PT: OT: PCP JOCY Franco [phone] Terrence Keating MD 06/29/2023 * Jo Ann Sharpe - 06/29/2023 2:54 PM EDT Nutrition Services Note - Low Nutrition Acuity Loida Roque is a 53 y.o. female Reason for intervention: follow up Nutrition Plan: Continue current diet. Encourage good PO intake. Spironolactone noted. Abdominal pain after eating noted. Encouragement and support provided. Pt screened for follow-up visit and auto service writer met with Pt at bedside. Pt [...] consulted in the interim. Jo Ann Sharpe Vegetable Farmer * Mary Castaneda RCP - 06/29/2023 3:55 [...] 1:53 PM EDT [facility] 2 - [facility] DAILY PROGRESS NOTE Page [phone] to reach a provider 28/09 Admit Date: [...] last 168 hours. Recent Labs 06/28/23 0152 06/27/23 2006 06/27/23 0434 GLUCOSE 101 94 99 Telemetry: I [...] with positive cardiac markers. Patient transferred to [facility] for further work-up and [...] Score: 24 PT: OT: PCP JOCY Franco [phone] * Ailyn Irvin MD - 06/27/2023 9:40 AM EDT [facility] 2 - [facility] DAILY PROGRESS NOTE Page [phone] to reach a provider 28/09 Admit Date: [...] with positive cardiac markers. Patient transferred to [facility] for further work-up and [...] Score: 24 PT: OT: PCP JOCY Franco [phone] * Ailyn Irvin MD - 06/26/2023 12:42 PM EDT [facility] H[facility]PITALIST 2 - [facility] DAILY PROGRESS NOTE Page [phone] to reach a provider 28/09 Admit Date: [...] with positive cardiac markers. Patient transferred to [facility] for further work-up and [...] Score: 24 PT: OT: PCP JOCY Franco [phone] * Mitali Manuel [facility] - 06/26/2023 5:43 AM EDT Respiratory [...] 1:39 PM EDT CV HOSPITALIST 2 - [facility] DAILY PROGRESS NOTE Page [phone] to reach a provider 28/09 Admit Date: [...] with positive cardiac markers. Patient transferred to [facility] for further work-up and [...] Score: 24 PT: OT: PCP JOCY Franco [phone] * Edith Chandler RCP - 06/24/2023 10:40 [...] 4:38 PM EDT [facility] 2 - [facility] DAILY PROGRESS NOTE Page [phone] to reach a provider 28/09 Admit Date: [...] weight,will do BD dosing -Switch to Eliquis tonight. Medications: Scheduled Meds: lidocaine 1 patch Transdermal [...] cranial nerve deficit. Labs: Recent Labs 06/24/2333706/23/232 06/22/23 0434 06/21/23 0325 06/20/23 033 WBC 6.9 8.2 7.5 9.3 10.1* HGB 13.6 14.3 12.8 14.9 14.2 HCT 40.7 43.1 39.1 44.2 41.5 PLATELET 220 233 225 279 253 MCV 93.3 93.9 96.8* 93.2 90.8 Recent Labs 06/24/23 03306/23/23 0412 06/22/23 0434 06/21/23 0558 06/21/23 0325 06/20/23 0332 NA 138 137 138 -- 138 137 [...] with positive cardiac markers. Patient transferred to [facility] for further work-up and [...] Score: 24 PT: OT: PCP JOCY Franco [phone] * Aaron Rosado RCP - 06/24/2023 1:55 [...] 1:03 PM EDT [facility] H[facility]PITALIST 2 - [facility] DAILY PROGRESS NOTE Page [phone] to reach a provider 28/09 Admit Date: [...] No cranial nerve deficit. Labs: Recent Labs 06/23/2341106/22/234 06/21/2332406/20/2333106/19/23 032 WBC 8.2 7.5 9.3 10.1* 9.4 [...] with positive cardiac markers. Patient transferred to [facility] for further work-up and [...] Score: 24 PT: OT: PCP JOCY Franco [phone] * Ciera Valdovinos RD - 06/22/2023 2:38 PM EDT Nutrition Services Note - Low Nutrition Acuity Loida Roque is a 53 y.o. female Reason for intervention: hospital day 9 Nutrition Plan: Cardiac Diet Record % PO intake Monitor weight - diuresis noted Patient screened for hospital length of stay nutrition visit, auto service writer met with Loida at bedside. Loida [...] 1:35 PM EDT [facility] 2 - [facility] DAILY PROGRESS NOTE Page [phone] to reach a provider 28/09 Admit Date: [...] care nurse that requested your imaging first. Chest One [...] care nurse that requested your imaging first. Assessment: Loida [...] with positive cardiac markers. Patient transferred to [facility] for further work-up and [...] above Diet: Daily Healthy Menu Choices/Cardiac diet ([facility]-Diet) DVT Prophlaxis: eliquis Code status: Attempt Cardiopulmonary Resuscitation - Inpatient Disposition: Discharge Planning: AM-PAC Basic Mobility Raw Score: 24 PT: OT: PCP JOCY Franco [phone] * Eufemia Copeland MD - 06/21/2023 11:02 AM EDT [facility] H[facility]PITALIST 2 - [facility] DAILY PROGRESS NOTE Page [phone] to reach [...] with positive cardiac markers. Patient transferred to [facility] for further work-up and [...] above Diet: Daily Healthy Menu Choices/Cardiac diet ([facility]-Diet) DVT Prophlaxis: eliquis Code status: Attempt Cardiopulmonary Resuscitation - Inpatient Disposition: Discharge Planning: AM-PAC Basic Mobility Raw Score: 24 PT: OT: PCP JOCY Franco [phone] * Eufemia Copeland MD - 06/20/2023 8:06 AM EDT CV H[facility]PITALIST 2 - [facility] DAILY PROGRESS NOTE Page [phone] to reach a provider 28/09 Admit Date: [...] 93.1 91.1 93.5 91.0 Recent Labs 06/20/23 03306/19/23 17206/19/2332106/18/23 1717 06/18/23 0419 06/17/23 1426 NA 137 [...] with positive cardiac markers. Patient transferred to [facility] for further work-up and [...] above Diet: Daily Healthy Menu Choices/Cardiac diet ([facility]-Diet) DVT Prophlaxis: eliquis Code status: Attempt Cardiopulmonary Resuscitation - Inpatient Disposition: Discharge Planning: AM-PAC Basic Mobility Raw Score: 24 PT: OT: PCP JOCY Franco [phone] * Eufemia Copeland MD - 06/19/2023 10:00 AM EDT CV H[facility]PITALIST 2 - [facility] DAILY PROGRESS NOTE Page [phone] to reach a provider 28/09 Admit Date: [...] with positive cardiac markers. Patient transferred to [facility] for further work-up and [...] above Diet: Daily Healthy Menu Choices/Cardiac diet ([facility]-Diet) DVT Prophlaxis: eliquis Code status: Attempt Cardiopulmonary Resuscitation - Inpatient Disposition: Discharge Planning: AM-PAC Basic Mobility Raw Score: 24 PT: OT: PCP JOCY Franco [phone] * Eufemia Copeland MD - 06/18/2023 9:02 AM EDT CV H[facility]PITALIST 2 - [facility] DAILY PROGRESS NOTE Page [phone] to reach [...] < > 90* CO2 Not Perf 24 26 < > 33* < > [...] with positive cardiac markers. Patient transferred to [facility] for further work-up and [...] above Diet: Daily Healthy Menu Choices/Cardiac diet ([facility]-Diet) DVT Prophlaxis: eliquis Code status: Attempt Cardiopulmonary Resuscitation - Inpatient Disposition: Discharge Planning: AM-PAC Basic Mobility Raw Score: 24 PT: OT: PCP JOCY Franco [phone] * Eufemia Copeland MD - 06/17/2023 12:02 PM EDT CV H[facility]PITALIST 2 - [facility] DAILY PROGRESS NOTE Page [phone] to reach a provider 28/09 Admit Date: [...] < > 89* < > 90* CO2 26 26 < > 33* < > [...] with positive cardiac markers. Patient transferred to [facility] for further work-up and [...] above Diet: Daily Healthy Menu Choices/Cardiac diet ([facility]-Diet) DVT Prophlaxis: eliquis Code status: Attempt Cardiopulmonary Resuscitation - Inpatient Disposition: Discharge Planning: AM-PAC Basic Mobility Raw Score: 24 PT: OT: PCP JOCY Franco [phone] * Calista Hernandez RT - 06/17/2023 4:36 [...] 3:25 PM EDT [facility] H[facility]PITALIST 2 - [facility] DAILY PROGRESS NOTE Page [phone] to reach a provider 28/09 Admit Date: [...] nerve deficit. Labs: Recent Labs 06/16/23 0330 06/15/23427 WBC 8.2 6.7 HGB 14.5 16.1* HCT 42.7 48.2* PLATELET 260 253 MCV 91.0 94.7* Recent Labs 06/16/23 1429 06/16/23 0901 06/16/23 0330 06/15/23 2133 06/15/23 1747 06/15/2318 06/15/23427 NA 135 136 135 135 134* < [...] 1.1 PT 12.7* Cardiac Markers Recent Labs 06/15/2381706/15/23427 TROPONINTHS 33* 34* PROBNP -- 1,953* Endocrine Recent Labs 06/15/23 0428 04/18/23 0210 04/17/23 0333 02/08/23 2208 09/27/22 0307 TSH 2.98 -- 5.93* 4.00 -- HA1C -- 5.6 -- -- 5.6 Recent Labs 06/16/23 0330 CHLPL 190 TRIG 126 HDL 50 LDLCHOL 115 Recent Labs 06/16/23 1429 06/16/23 0906/16/23 033 GLUCOSE 175 148 110 Telemetry: I have [...] with positive cardiac markers. Patient transferred to [facility] for further work-up and [...] above Diet: Daily Healthy Menu Choices/Cardiac diet ([facility]-Diet) DVT Prophlaxis: eliquis Code status: Attempt Cardiopulmonary Resuscitation - Inpatient Disposition: Discharge Planning: AM-PAC Basic Mobility Raw Score: 24 PT: OT: PCP JOCY Franco [phone] documented in this encounter H&P Notes * [...] pain. The patient was recently admitted at [facility] from 04/16/23 to 04/19/2023 as a transfer from [facility] due to exertional chest pressure [...] etiology, patient was accepted for transfer to [facility]. 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 fluticasone propionate (FLONASE) 50 mcg/actuation Dyess, Suspension 1 spray by Each Nare route [...] for discharge to home with family support, [facility] for RN and OP Cardi clinic for f/u. Needs for Transition of Care: Plan for discharge is: Home w/ Services Outpatient Agency/Support Group Needs: None Home Health Services: Registered Nurse Agency Referrals & Follow-up Care: Contact information for follow-up Home Health & Hospice, [facility] [address] Transportation: taxi voucher -Ride confirmed entrance #2 [...] other (see comments) (Has CPAP provided through [facility]) DME Needed at Discharge: none Patient is insured through: Primary Insurance: [id number] [place] [email or web address] [place] / Plan[place] / Product Type: *No Product type* / Secondary Insurance: N/A Prescription Coverage: Yes This plan was formulated with input from patient, (please identify family/friend involved if applicable) and team. All are in agreement with plan. Nani Mendoza MSN-Ed, RN ACM Cardiac Research Nurse and Neuro/Neurocrit/ENT Animal Rehabilitator. * Care Management - Dixie Patterson - 07/09/2023 1:38 PM EDT Transportation for discharge was scheduled and confirmed through [employer]. [employer] will have a solid waste truck driver here at entrance #2 @4pm [...] Visceral Aorta 80 16 Celiac Artery, Proximal [place] 119 26 Celiac Artery, Mid [place] 115 21 Celiac Artery, Distal No Vis Sup Mes Artery Proximal [place]ic 427 91 Sup Mes Artery Middle [place] 100 17 Sup Mes Artery Distal [place] 64 15 Hepatic Artery No Vis Splenic [...] sign off at this time, please page [phone] with any questions or concerns. Discussed with [...] Visceral Aorta 80 16 Celiac Artery, Proximal [place] 119 26 Celiac Artery, Mid [place] 115 21 Celiac Artery, Distal No Vis Sup Mes Artery Proximal [place] 427 91 Sup Mes Artery Middle [place] 100 17 Sup Mes Artery Distal [place] 64 15 Hepatic Artery No Vis Splenic [...] duplex Discussed with Dr. Kamara. Please page [phone] with any questions or concerns. 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 At [place], patient should be strict NPO. The plan as outlined above was discussed with Dr. Villa. Recommendations were discussed with primary team. Sis Keenan M.D. Fellow in Gastroenterology and Hepatology Pager #[phone] 07/06/2023 Associated attestation - Lashonda Villa MD [...] Lashonda Villa MD Gastroenterology and hepatology Pager: [phone] * Plan of Care - Olive Hernandez [...] Visceral Aorta 80 16 Celiac Artery, Proximal [place] 119 26 Celiac Artery, Mid [place] 115 21 Celiac Artery, Distal No Vis Sup Mes Artery Proximal [place] 427 91 Sup Mes Artery Middle [place] 100 17 Sup Mes Artery Distal [place] 64 15 Hepatic Artery No Vis Splenic [...] duplex Discussed with Dr. Kamara. Please page [phone] with any questions or concerns. Gauri Vega [...] Visceral Aorta 80 16 Celiac Artery, Proximal [place] 119 26 Celiac Artery, Mid [place] 115 21 Celiac Artery, Distal No Vis Sup Mes Artery Proximal [place] 427 91 Sup Mes Artery Middle [place] 100 17 Sup Mes Artery Distal [place] 64 15 Hepatic Artery No Vis Splenic [...] ASA) Discussed with Dr. Kamara. Please page [phone] with any questions or concerns. Gauri Vega [...] Visceral Aorta 80 16 Celiac Artery, Proximal [place] 119 26 Celiac Artery, Mid [place] 115 21 Celiac Artery, Distal No Vis Sup Mes Artery Proximal [place] 427 91 Sup Mes Artery Middle [place] 100 17 Sup Mes Artery Distal [place] 64 15 Hepatic Artery No Vis Splenic [...] 07/02/[address] Kamara. Please page [phone] with any questions or concerns. Gauri Vega [...] Visceral Aorta 80 16 Celiac Artery, Proximal [place] 119 26 Celiac Artery, Mid [place] 115 21 Celiac Artery, Distal No Vis Sup Mes Artery Proximal [place] 427 91 Sup Mes Artery Middle [place] 100 17 Sup Mes Artery Distal [place] 64 15 Hepatic Artery No Vis Splenic [...] tonight Discussed with Dr. Kamara. Please page [phone] with any questions or concerns. Gauri Vega [...] Goal: Absence of Hospital-Acquired Illness or Injury 06/30/2023 1849 by Aaron Caban RN Outcome: Ongoing (Interventions Implemented as Appropriate) 06/30/2023 1246 by Aaron Caban RN Outcome: Ongoing (Interventions Implemented as Appropriate) Goal: Optimal Comfort and Wellbeing 06/30/2023 1849 by Aaron Caban RN Outcome: Ongoing (Interventions Implemented as Appropriate) 06/30/2023 1246 by Aaron Caban RN Outcome: Ongoing (Interventions Implemented as Appropriate) Goal: Readiness for Transition of Care 06/30/2023 1849 by Aaron Caban RN Outcome: Ongoing (Interventions Implemented as Appropriate) 06/30/2023 1246 by Aaron Caban RN Outcome: Ongoing (Interventions Implemented as Appropriate) Problem: Chest Pain Goal: Resolution of Chest Pain Symptoms 06/30/2023 184 by Aaron Caban RN Outcome: Ongoing (Interventions Implemented as Appropriate) 06/30/2023 1246 by Aaron Caban RN Outcome: Ongoing (Interventions Implemented as Appropriate) Problem: Fall Injury Risk Goal: Absence of Fall and Fall-Related Injury 06/30/2023 184 by Aaron Caban RN Outcome: Ongoing (Interventions Implemented as Appropriate) 06/30/2023 1246 by Aaron Caban RN Outcome: Ongoing (Interventions Implemented as Appropriate) Problem: Infection Goal: Absence of Infection Signs and Symptoms 06/30/2023 184 by Aaron Caban RN Outcome: Ongoing (Interventions Implemented as Appropriate) 06/30/2023 1246 by Aaron Caban RN Outcome: Ongoing (Interventions Implemented as Appropriate) Problem: Fluid Imbalance (Heart Failure) Goal: Fluid Balance 06/30/2023 184 by Aaron Caban RN Outcome: Ongoing (Interventions Implemented as Appropriate) 06/30/2023 1246 by Aaron Caban RN Outcome: Ongoing (Interventions Implemented as Appropriate) Problem: Respiratory Compromise (Heart Failure) Goal: Effective Oxygenation and Ventilation 06/30/2023 184 by Aaron Caban RN Outcome: Ongoing (Interventions [...] Visceral Aorta 80 16 Celiac Artery, Proximal [place] 119 26 Celiac Artery, Mid [place] 115 21 Celiac Artery, Distal No Vis Sup Mes Artery Proximal [place] 427 91 Sup Mes Artery Middle [place] 100 17 Sup Mes Artery Distal [place] 64 15 Hepatic Artery No Vis Splenic [...] 105 105 106 CO2 * 24 BUN * 24* 24* CREATININE 1.17 1.21* 1.28* Last [...] Visceral Aorta 80 16 Celiac Artery, Proximal [place] 119 26 Celiac Artery, Mid [place] 115 21 Celiac Artery, Distal No Vis Sup Mes Artery Proximal [place] 427 91 Sup Mes Artery Middle [place] 100 17 Sup Mes Artery Distal [place] 64 15 Hepatic Artery No Vis Splenic [...] Dominguez PA - 06/28/2023 8:52 AM EDT [facility] Department of Cardiology Consult [...] consultation required. SUHA LangstonC Cardiovascular Medicine Pager [phone] 06/28/2023 Associated attestation - Klarissa Henderson - 06/30/2023 6:25 AM EDT I saw [...] Tellez MD - 06/24/2023 2:14 PM EDT [facility] Department of Cardiology Consult [...] if further consultation required. Alejandro Tellez MD Client Technical Specialist [phone] Associated attestation - Willy Gómez [...] other (see comments) (Has CPAP provided through [facility]) DME Needed at Discharge: No Patient is insured through: Primary Insurance: [id number] [place] [email or web address] [place] / Plan[place] / [...] of Discharge: 06/26/2023 BEA Killian, RN Inpatient Director Learning Services- Cardiology Office of Care Management Pager #: [phone] * Plan of Care - Alejandro Davenport [...] [phone] Last 3 Lytes Recent Labs 06/23/232 06/22/23 0434 06/21/23 0558 06/21/23 0325 NA [...] fraction Overview Note: 05/2021: subacute, presented to [facility] with RUQ pain, weight gain, and [...] Not on file 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 fluticasone propionate (FLONASE) 50 mcg/actuation [place]ess, Suspension 1 spray by Each Nare route [...] other (see comments) (Has CPAP provided through [facility]) DME Needed at Discharge: No Patient is insured through: Primary Insurance: [id number] [place] [email or web address] / [place] / [...] Implemented as Appropriate) Goal: Patient-Specific Goal (Individualized) 06/19/202359 by Aaron Caban RN Outcome: Ongoing (Interventions [...] other (see comments) (Has CPAP provided through [facility]) DME Needed at Discharge: No Patient is insured through: Primary Insurance: [id number] [place] [email or web address] [place] / Plan[place] / Product Type: *No Product type* / Secondary Insurance: N/A Plan for discharge is: Home w/o Services Outpatient Agency/Support Group Needs: None Agency Referrals: Not Applicable at this time. Transportation: taxi voucher Barriers to discharge: Discharge planning Plan going forward: Pt to al home with family without services once medically ready. Care Management will continue to follow and assist with discharge planning and coordination of careas indicated. Anticipated Date of Discharge: 06/19/2023 BEA Killian, RN Inpatient Director Learning Services- Cardiology Office of Care Management Pager #: [phone] * Plan of Care - Olive Hernandez [...] reports of CP or SOB. Expressed pain 10/10 d/t migrane, treated with pt's own Nurtec. [...] COVID test: Lab Results Component Value Date [id number] Not Detected 06/13/2021 Past medical History: Past [...] In the past 12 months has the [employer], gas, oil, or water [employer] threatened to shut off services in your [...] other (see comments) (Has [facility]AP [facility] through [facility]) Home Address confirmed as: [address] [facility] [address] Social & Family Supports: All names listed [...] Specific Information: Has a CPAP provided by [facility]/Prescription Coverage: Primary Insurance: [id number] [place] [email or web address] [place] / Plan: [address] [place] EX[place]ANGE / Product Type: *No Product type* / Secondary Insurance: N/A ; Prescription Coverage: Yes Preferred Pharmacy: [facility] [address] [address] [place] Status: Patient is a : No Primary Care Provider confirmed: JOCY Franco [phone] Patient/Caregiver Goals of Treatment: To figure out what is wrong Potential Needs for Transition of Care: other (see comments) ([facility] [place]cal help) Agency Referrals: Not Applicable Transportation: no concerns Transportation Anticipated: agency ( can not drive , mother does not drive , Son does not have a car) Concerns to be Addressed: discharge planning Assessment: Patient is admitted to Cards service for Chest pain Plan: May need [...] Office of Care Management Float / multimedia authoring specialist molecular pathologist [email or web address] Pager #[phone] * Consult Note - Jackie Batres MD - 06/15/2023 11:04 AM EDT [facility] Department of Cardiology Initial [...] her case. She has not had recent watcher automat long goods monitoring for arrhythmia, though unlikely, is possible [...] 1:00 PM EST Office Visit Cardiology at [address] [phone] Jaspreet Kinsey MD [facility] [place] [address] Scheduled Orders Name Type Priority Associated Diagnoses [...] Routine 07/07/2023 2:25 PM EDT Colonoscopy, Biopsy ([id number]) 07/07/2023 2:10 PM EDT post prandial pain Upper Gi Endoscopy, Biopsy ([id number]) 07/07/2023 2:10 PM EDT post prandial pain [...] 07/07/2023 3:51 AM EDT GIARDIA/CRYPTOSPORIDI UM ANTIGENS ([facility]/CGP/APD/NLH) Routine 07/07/2023 12:38 AM [...] ORDERABLES [facility] [place] [address] * Differential, Automated (07/09/2023 3:03 AM EDT) Neutrophil % 51.4 % [facility] Neutrophil Absolute 3.43 1.70 - 6.10 x10(3)/[facility] LAB[facility] Lymph % 31.4 % [facility] Lymphocytes Abs 2.1 0.9 - 3.2 x10(3)/[facility] LAB[facility] Monocyte % 10.1 % [facility] Monocyte Abs 0.7 0.3 - 0.9 x10(3)/[facility] LAB[facility] Eos % 6.0 % [facility] Eosinophils Abs 0.4 0.0 - 0.4 x10(3)/[facility] Basophil % 0.8 % [facility] Baso Absolute 0.0 0.0 - 0.1 x10(3)/[facility] LAB[facility] Immature Gran % 0.30 % [facility] Comment: Immature granulocytes(IG's)percentage and absolute count will include metamyelocytes, myelocytes, and promyelocytes. Blood smears from CBCs yielding IG's will be scanned manually for concordance. If this scan disagrees with the automated IG or if promyelocytes are noted, a manual differential will be performed. Immature Gran Absolute 0.02 0.00 - 0.04 x10(3)/[facility] Blood 07/09/2023 3:03 AM EDT 07/09/2023 3:14 AM EDT Narrative Resulting Agency Comment Spec In Lab Terrence Keating MD HEMATOLOGY ORDERABLE S [facility] [place] [address] * (ABNORMAL) Hemogram (07/09/2023 3:03 AM EDT) White Blood Cell 6.7 4.0 - 9.5 x10(3)/[facility] LAB[facility] Red Blood Cell 3.87(L) 4.00 - 5.21 x10(6)/mc L [facility] Hemoglobin 12.4 11.7 - 15.5 g/dL [facility] Hematocrit 36.8 35.7 - 45.8 % [facility] Mean Cell Volume 95.1(H) 82.6 - 94.4 fL [facility] Mean Cell Hemoglobin 32.0 27.1 - 32.0 pg [facility] Mean Cell Hemoglobin Concentration 33.7 31.7 - 35.0 g/dL [facility] Platelet 209 145 - 357 x10(3)/ L [facility] RDW Standard Deviation 47.9(H) 37.0 - 46.0 [facility] RDW coefficient of variation 13.7 11.5 - 14.1 % [facility] Mean Platelet Volume 10.5 7.6 - 12.9 fL [facility] NRBC% auto 0.0 % [facility] NRBC Absolute 0.000 0.000 - 0.000 x10(3)/ L [facility] Blood 07/09/2023 3:03 AM EDT 07/09/2023 3:14 AM EDT Narrative Resulting Agency Comment Spec In Lab Terrence Keating MD HEMATOLOGY ORDERABLE S Performing Organization Address City/[facility]/ZIP Co de Phone Number [facility] [place] [address] * Heparin (unfractionated) Level (07/09/2023 3:03 AM EDT) UF Heparin 0.52 IU/mL [facility] [...] S Performing Organization Address [facility]/ZIP Co de Phone Number [facility] [place] [address] * (ABNORMAL) Basic Metabolic Panel (non-fasting) (07/09/2023 3:03 AM EDT) Glucose 100 65 - 199 mg/dL [facility] Comment:Diabetes: >=200 mg/d L plus symptoms Blood Urea Nitrogen 12 8 - 18 mg/dL [facility] Carbon Dioxide 22 22 - 31 mmol/L [facility] Anion Gap 12 5 - 15 mmol/L [facility] Calcium 9.3 8.5 - 10.5 mg/dL [facility] Est Glomerular Filtration Rate 52(L) >=60 mL/min/1. 73 m?? [facility] [...] MD CHEMISTRY ORDERABL ES Performing Organization Address City/[facility]/ZIP Co de Phone Number [facility] [place] [address] * Phosphorus (07/09/2023 3:03 AM EDT) Phosphorus 4.5 2.5 - 4.5 mg/dL [facility] Blood 07/09/2023 3:03 AM EDT 07/09/2023 3:14 AM EDT Narrative Resulting Agency Comment Spec In Lab Eufemia Copeland MD CHEMISTRY ORDERABL ES Performing Organization Address City/[facility]/ZIP Co de Phone Number [facility] [place] [address] * Magnesium (07/09/2023 3:03 AM EDT) Pathologist [facility] Magnesium 0.91 0.69 - 1.07 mmol/L [facility] Blood 07/09/2023 3:03 AM EDT 07/09/2023 3:14 AM EDT Narrative Resulting Agency Comment Spec In Lab Eufemia Copeland MD CHEMISTRY ORDERABL ES Performing Organization Address [facility] Co de Phone Number [facility] [place] [address] * Heparin (unfractionated) Level (07/08/2023 12:02 PM EDT) Pathologist [facility] UF Heparin 0.45 IU/mL [facility] [...] S Performing Organization Address [facility]/ZIP Co de Phone Number [facility] [place] [address] * EKG 12 Lead (07/08/2023 9:58 AM EDT) Pathologist [facility] Ventricular rate 66 BPM MUSE SYSTEM Atrial Rate 66 BPM MUSE SYSTEM P-R Interval 178 ms MUSE SYSTEM QRS Duration 92 ms MUSE SYSTEM Q-T Interval 486 ms MUSE SYSTEM QTC Calculated (Bezet) 509 ms MUSE SYSTEM Calculated P [place] 29 degrees MUSE SYSTEM Calculated R [place] 33 degrees MUSE SYSTEM Calculated T [place] 29 degrees MUSE SYSTEM INTERPRETATION Normal sinus rhythm Nonspecific ST and T wave abnormality Prolonged QT Abnormal ECG When compared with ECG of 04-JUL-2023 11:41, Criteria for Septal infarct are no longer Present I personally reviewed the tracing and edited the fellows interpretation Confirmed by fellow MD Keyshawn, Katalina ([id number]) on 07/08/2023 3:18:07 PM Confirmed by MD Beatriz, Klarissa ([id number]) on 07/09/2023 6:15:21 AM MUSE SYSTEM 07/08/2023 9:58 AM EDT 07/09/2023 6:15 AM EDT Lisa Beck MD ECG ORDERABLES MUSE SYSTEM * Differential, Automated (07/08/2023 5:52 AM EDT) Neutrophil % 60.6 % [facility] Neutrophil Absolute 4.42 1.70 - 6.10 x10(3)/[facility] LAB[facility] Lymph % 24.8 % [facility] Lymphocytes Abs 1.8 0.9 - 3.2 x10(3)/[facility] Monocyte % 9.2 % [facility] Monocyte Abs 0.7 0.3 - 0.9 x10(3)/[facility] Eos % 4.5 % [facility] Eosinophils Abs 0.3 0.0 - 0.4 x10(3)/[facility] Basophil % 0.5 % [facility] Baso Absolute 0.0 0.0 - 0.1 x10(3)/[facility] Immature Gran % 0.40 % [facility] Comment: Immature granulocytes(IG's)percentage and absolute count will include metamyelocytes, myelocytes, and promyelocytes. Blood smears from CBCs yielding IG's will be scanned manually for concordance. If this scan disagrees with the automated IG or if promyelocytes are noted, a manual differential will be performed. Immature Gran Absolute 0.03 0.00 - 0.04 x10(3)/mcL [facility] Blood 07/08/2023 5:52 AM EDT 07/08/2023 5:58 AM EDT Narrative Resulting Agency Comment Spec In Lab Terrence Keating MD HEMATOLOGY ORDERABLE S [facility] [place] [address] * (ABNORMAL) Hemogram (07/08/2023 5:52 AM EDT) White Blood Cell 7.3 4.0 - 9.5 x10(3)/mc L [facility] Red Blood Cell 3.94(L) 4.00 - 5.21 x10(6)/mc L [facility] Hemoglobin 12.3 11.7 - 15.5 g/dL [facility] Hematocrit 36.3 35.7 - 45.8 % [facility] Mean Cell Volume 92.1 82.6 - 94.4 fL [facility] Mean Cell Hemoglobin 31.2 27.1 - 32.0 pg [facility] Mean Cell Hemoglobin Concentration 33.9 31.7 - 35.0 g/dL [facility] Platelet 207 145 - 357 x10(3)/mc L [facility] RDW Standard Deviation 44.6 37.0 - 46.0 fL [facility] RDW coefficient of variation 13.3 11.5 - 14.1 % [facility] Mean Platelet Volume 10.5 7.6 - 12.9 fL [facility] NRBC% auto 0.0 % [facility] NRBC Absolute 0.000 0.000 - 0.000 x10(3)/mc L [facility] Blood 07/08/2023 5:52 AM EDT 07/08/2023 5:58 AM EDT Narrative Resulting Agency Comment Spec In Lab Terrence Keating MD HEMATOLOGY ORDERABLE S Performing Organization Address City/[facility]/ZIP Co de Phone Number [facility] [place] [address] * Heparin (unfractionated) Level (07/08/2023 5:52 AM EDT) UF Heparin 0.37 IU/mL [facility] [...] MD HEMATOLOGY ORDERABLE S Performing Organization Address City/[facility]/ZIP Co de Phone Number [facility] [place] [address] * (ABNORMAL) Basic Metabolic Panel (non-fasting) (07/08/2023 5:52 AM EDT) Glucose 102 65 - 199 mg/dL [facility] Comment:Diabetes: >=200 mg/d L plus symptoms Blood Urea Nitrogen 14 8 - 18 mg/dL [facility] Carbon Dioxide 25 22 - 31 mmol/L [facility] Anion Gap 13 5 - 15 mmol/L [facility] Calcium 9.3 8.5 - 10.5 mg/dL [facility] Est Glomerular Filtration Rate 49(L) >=60 mL/min/1. 73 m?? [facility] [...] ES [facility] [place] [address] * Phosphorus (07/08/2023 5:52 AM EDT) Phosphorus 4.3 2.5 - 4.5 mg/dL [facility] Blood 07/08/2023 5:52 AM EDT 07/08/2023 5:58 AM EDT Narrative Resulting Agency Comment Spec In Lab Eufemia Copeland MD CHEMISTRY ORDERABL ES Performing Organization Address City/[facility]/ZIP Co de Phone Number [facility] [place] [address] * Magnesium (07/08/2023 5:52 AM EDT) Magnesium 0.89 0.69 - 1.07 mmol/L [facility] Blood 07/08/2023 5:52 AM EDT 07/08/2023 5:58 AM EDT Narrative Resulting Agency Comment Spec In Lab Eufemia Copeland MD CHEMISTRY ORDERABL ES Performing Organization Address [facility] Co de Phone Number [facility] [place] [address] * Heparin (unfractionated) Level (07/08/2023 12:00 AM EDT) UF Heparin 0.22 IU/mL [facility] [...] S Performing Organization Address [facility] Co de Phone Number [facility] [place] [address] * Specimen to Pathology (07/07/2023 2:55 PM EDT) AP Specimen 07/07/2023 2:55 PM EDT 07/07/2023 2:55 PM EDT Narrative [facility] - 07/07/2023 2:55 PM EDT Specimen requisition ordered. ??Separate Pathology report to follow Terrence Keating MD PATHOLOGY/CYTOLOGY O RUMA Performing Organization Address [facility] [place] [address] * Specimen to Pathology (07/07/2023 2:38 PM EDT) AP Specimen 07/07/2023 2:38 PM EDT 07/07/2023 2:38 PM EDT Narrative [facility] - 07/07/2023 2:38 PM EDT Specimen requisition ordered. ??Separate Pathology report to follow Terrence Keating MD PATHOLOGY/CYTOLOGY O RUMA Performing Organization Address [facility] [place] [address] * Specimen to Pathology (07/07/2023 2:38 PM EDT) AP Specimen 07/07/2023 2:38 PM EDT 07/07/2023 2:38 PM EDT [facility] - 07/07/2023 2:38 PM EDT Specimen requisition ordered. ??Separate Pathology report to follow Terrence Keating MD PATHOLOGY/CYTOLOGY Deyanira HENDRIX Performing Organization Address [facility] [place] [address] * Surgical Pathology Report (07/07/2023 2:25 PM EDT) Final Diagnosis [id number] ? Location: [id number]; [facility]; A The signing pathologist has (i) examined [...] Sapna Verified: ??07/19/2023 13:25 ??Pathologist Performed at: ??-[facility] Dept. of Pathology, [place] [address] Box Cutter: Vangie Lu MD, FCAP, ??CLIA Certificate: [id number] SPECIMEN(S) SUBMITTED A - duodenal biopsies rule [...] EDT [facility] GI Biopsy 07/07/2023 2:25 PM EDT 07/07/2023 2:25 PM EDT GI Biopsy 07/07/2023 2:25 PM EDT 07/07/2023 2:25 PM EDT GI Biopsy 07/07/2023 2:25 PM EDT 07/07/2023 2:25 PM EDT Lashonda Villa MD PATHOLOGY/CYTOLOGY O RDERAFADUMO [facility] [place] [address] * COLONOSCOPY (07/07/2023 1:39 PM EDT) COLONOSCOPY [facility] Endoscopy Procedure Date: 07/07/2023 1:39 PM ? Patient Name: Loida Roque ? N: [id number] ? Date of : 1970 ? Age: 53 ? Order #: [id number] ? Instrument Name: [id number] ? Procedure: ? Colonoscopy Indications: ? Abdominal [...] ? was evaluated using the BBPS ? ([place] Bowel Preparation Scale) ? with scores of: [...] Procedure Code(s): ? --- Professional --- ? 72499, Colonoscopy, flexible; with ? biopsy, single or multiple CPT copyright 2021 [employer]. All rights reserved. The codes documented in this report are preliminary and upon director security risk management review may be revised to meet current [...] - GENER AL ORDERABLES Performing Organization Address City/[facility]/ZIP Co de Phone Number [facility] [place] [address] * Campylobacter Antigen (07/07/2023 12:10 PM EDT) Pathologist [facility] Campylobacter Ag Immunoassay Negative for Campylobacter Antigen [facility] Stool 07/07/2023 12:1 0 PM EDT 07/07/2023 12:53 PM EDT Narrative Resulting Agency Comment Spec In Lab Ailyn Irvin MD MICROBIOLOGY - GENER AL ORDERABLES Performing Organization Address City/[facility]/ZIP Co de Phone Number [facility] [place] [address] * Stool culture (07/07/2023 12:10 PM EDT) [facility] Stool Culture No enteric pathogens isolated [facility] Stool 07/07/2023 12:1 0 PM EDT 07/07/2023 12:53 PM EDT Narrative Resulting Agency Comment Spec In Lab Ailyn Irvin MD MICROBIOLOGY - GENER AL ORDERABLES Performing Organization Address City/[facility] Co de Phone Number [facility] [place] [address] * (ABNORMAL) Differential, Automated (07/07/2023 3:51 AM EDT) Pathologist [facility] Neutrophil % 58.9 % [facility] Neutrophil Absolute 4.67 1.70 - 6.10 x10(3)/mc L [facility] Lymph % 24.8 % [facility] Lymphocytes Abs 2.0 0.9 - 3.2 x10(3)/mc L [facility] Monocyte % 9.4 % [facility] Monocyte Abs 0.7 0.3 - 0.9 x10(3)/mc L [facility] Eos % 6.1 % [facility] Eosinophils Abs 0.5(H) 0.0 - 0.4 x10(3)/mc L [facility] Basophil % 0.5 % [facility] Baso Absolute 0.0 0.0 - 0.1 x10(3)/mc L [facility] Immature Gran % 0.30 % [facility] [...] Absolute 0.02 0.00 - 0.04 x10(3)/ L [facility] Blood 07/07/2023 3:51 AM EDT 07/07/2023 4:08 AM EDT Narrative Resulting Agency Comment Spec In Lab Terrence Keating MD HEMATOLOGY ORDERABLE S [facility] [place] [address] * Hemogram (07/07/2023 3:51 AM EDT) White Blood Cell 7.9 4.0 - 9.5 x10(3)/[facility] Red Blood Cell 4.42 4.00 - 5.21 x10(6)/[facility] Hemoglobin 13.8 11.7 - 15.5 g/dL [facility] Hematocrit 41.0 35.7 - 45.8 % [facility] Mean Cell Volume 92.8 82.6 - 94.4 fL [facility] Mean Cell Hemoglobin 31.2 27.1 - 32.0 pg [facility] Mean Cell Hemoglobin Concentration 33.7 31.7 - 35.0 g/dL [facility] Platelet 255 145 - 357 x10(3)/[facility] RDW Standard Deviation 44.8 37.0 - 46.0 fL [facility] RDW coefficient of variation 13.2 11.5 - 14.1 % [facility] Mean Platelet Volume 10.6 7.6 - 12.9 fL [facility] NRBC% auto 0.0 % [facility] NRBC Absolute 0.000 0.000 - 0.000 x10(3)/mcL [facility] Blood 07/07/2023 3:51 AM EDT 07/07/2023 4:08 AM EDT Narrative Resulting Agency Comment Spec In Lab Terrence Keating MD HEMATOLOGY ORDERABLE S Performing Organization Address City/[facility]/ZIP Co de Phone Number [facility] [place] [address] * Heparin (unfractionated) Level (07/07/2023 3:51 AM EDT) UF Heparin 0.33 IU/mL [facility] MD HEMATOLOGY ORDERABLE S Performing Organization Address City/[facility]/ZIP Co de Phone Number [facility] [place] [address] * (ABNORMAL) Basic Metabolic Panel (non-fasting) (07/07/2023 3:51 AM EDT) Glucose 101 65 - 199 mg/dL [facility] Comment:Diabetes: >=200 mg/d L plus symptoms Blood Urea Nitrogen 18 8 - 18 mg/dL [facility] Carbon Dioxide 23 22 - 31 mmol/L [facility] Anion Gap 16(H) 5 - 15 mmol/L [facility] Calcium 9.4 8.5 - 10.5 mg/dL [facility] Est Glomerular Filtration Rate 49(L) >=60 mL/min/1. 73 m?? [facility] [...] ES [facility] [place] [address] * Phosphorus (07/07/2023 3:51 AM EDT) Phosphorus 4.0 2.5 - 4.5 mg/dL [facility] Blood 07/07/2023 3:51 AM EDT 07/07/2023 4:08 AM EDT Narrative Resulting Agency Comment Spec In Lab Eufemia Copeland MD CHEMISTRY ORDERABL ES Performing Organization Address [facility] Co de Phone Number [facility] [place] [address] * Magnesium (07/07/2023 3:51 AM EDT) Magnesium 0.87 0.69 - 1.07 mmol/L [facility] Blood 07/07/2023 3:51 AM EDT 07/07/2023 4:08 AM EDT Narrative Resulting Agency Comment Spec In Lab Eufemia Copeland MD CHEMISTRY ORDERABL ES Performing Organization Address [facility] Co de Phone Number [facility] [place] [address] * Hepatic Function Panel (07/07/2023 3:51 AM EDT) Pathologist [facility] Protein, Total 7.5 6.1 - 8.0 g/dL [facility] Albumin 4.4 3.2 - 5.2 g/dL [facility] Aspartate Aminotransferase 15 0 - 30 unit/L [facility] Alanine Aminotransferase 20 0 - 30 unit/L [facility] Alkaline Phosphatase 54 35 - 105 unit/L [facility] Bilirubin, Total 0.4 0.2 - 1.3 mg/dL [facility] Bilirubin, Direct 0.1 0.0 - 0.3 mg/dL [facility] Blood 07/07/2023 3:51 AM EDT 07/07/2023 4:08 AM EDT Narrative Resulting Agency Comment Spec In Lab Ailyn Irvin MD CHEMISTRY ORDERABLES Performing Organization Address City/[facility]/ZIP Co de Phone Number [facility] [place] [address] * Giardia/Cryptosporidium Antigens (MC/CGP/APD/NLH) (07/07/2023 12:38 AM EDT) Giardia Antigen Negative Negative [facility] Comment:Examination for othe r intestinal parasites requires foreign travel history. Cryptosporidium Antigen Negative Negative [facility] Stool 07/07/2023 12:3 8 AM EDT 07/07/2023 7:56 AM EDT Narrative Resulting Agency Comment Spec In Lab Ailyn Irvin MD MICROBIOLOGY - GENER AL ORDERABLES Performing Organization Address [facility]/ZIP Co de Phone Number [facility] [place] [address] * Hepatic Function Panel (07/06/2023 3:41 PM EDT) Protein, Total 7.6 6.1 - 8.0 g/dL [facility] Albumin 4.3 3.2 - 5.2 g/dL [facility] Aspartate Aminotransferase 20 0 - 30 unit/L [facility] Alanine Aminotransferase 22 0 - 30 unit/L [facility] Alkaline Phosphatase 58 35 - 105 unit/L [facility] Bilirubin, Total 0.4 0.2 - 1.3 mg/dL [facility] Bilirubin, Direct 0.1 0.0 - 0.3 mg/dL [facility] Blood 07/06/2023 3:41 PM EDT 07/06/2023 4:00 PM EDT Narrative Resulting Agency Comment Spec In Lab Terrence Keating MD CHEMISTRY ORDERABLES Performing Organization Address City/[facility]/ZIP Co de Phone Number [facility] [place] [address] * Hepatic Function Panel (07/06/2023 3:54 AM EDT) [facility] Protein, Total 7.6 6.1 - 8.0 g/dL [facility] Albumin 4.3 3.2 - 5.2 g/dL [facility] Aspartate Aminotransferase Not Perf 0 - 30 [facility] Comment: Unable to quantitate due to sample hemolysis. ??Sample redraw suggested. Called by: abimbola, Read back by: Ana Paula Borja, Date/Time:07/06/23 14:08. Alanine Aminotransferase 25 0 - 30 unit/L [facility] Alkaline Phosphatase 58 35 - 105 unit/L [facility] Bilirubin, Total 0.4 0.2 - 1.3 mg/dL [facility] Bilirubin, Direct Not Perf 0.0 - 0.[address] [facility] Blood Venous Draw / Unknown 07/06/2023 3:54 AM EDT 07/06/2023 4:18 AM EDT Narrative Resulting Agency Comment Spec In Lab Terrence Keating MD CHEMISTRY ORDERABLES [facility] [place] [address] * (ABNORMAL) Differential, Automated (07/06/2023 3:54 AM EDT) [facility] Neutrophil % 56.6 % [facility] Neutrophil Absolute 4.34 1.70 - 6.10 x10(3)/mc L [facility] Lymph % 26.1 % [facility] Lymphocytes Abs 2.0 0.9 - 3.2 x10(3)/mc L [facility] Monocyte % 9.6 % [facility] Monocyte Abs 0.7 0.3 - 0.9 x10(3)/mc L [facility] Eos % 6.6 % [facility] Eosinophils Abs 0.5(H) 0.0 - 0.4 x10(3)/mc L [facility] Basophil % 0.7 % [facility] Baso Absolute 0.0 0.0 - 0.1 x10(3)/[facility] Immature Gran % 0.40 % [facility] Comment: Immature granulocytes(IG's)percentage and absolute count will include metamyelocytes, myelocytes, and promyelocytes. Blood smears from CBCs yielding IG's will be scanned manually for concordance. If this scan disagrees with the automated IG or if promyelocytes are noted, a manual differential will be performed. Immature Gran Absolute 0.03 0.00 - 0.04 x10(3)/[facility] Blood 07/06/2023 3:54 AM EDT 07/06/2023 4:12 AM EDT Narrative Resulting Agency Comment Spec In Lab Terrence Keating MD HEMATOLOGY ORDERABLE S Performing Organization Address City/State/[facility] Co de Phone Number [facility] [place] [address] * (ABNORMAL) Hemogram (07/06/2023 3:54 AM EDT) White Blood Cell 7.7 4.0 - 9.5 x10(3)/[facility] Red Blood Cell 4.62 4.00 - 5.21 x10(6)/[facility] Hemoglobin 14.7 11.7 - 15.5 g/dL [facility] Hematocrit 43.8 35.7 - 45.8 % [facility] Mean Cell Volume 94.8(H) 82.6 - 94.4 fL [facility] Mean Cell Hemoglobin 31.8 27.1 - 32.0 pg [facility] Mean Cell Hemoglobin Concentration 33.6 31.7 - 35.0 g/dL [facility] Platelet 243 145 - 357 x10(3)/[facility] RDW Standard Deviation 47.2(H) 37.0 - 46.0 fL [facility] RDW coefficient of variation 13.5 11.5 - 14.1 % [facility] Mean Platelet Volume 10.4 7.6 - 12.9 fL [facility] NRBC% auto 0.0 % [facility] NRBC Absolute 0.000 0.000 - 0.000 x10(3)/mc L [facility] Blood 07/06/2023 3:54 AM EDT 07/06/2023 4:12 AM EDT Narrative Resulting Agency Comment Spec In Lab Terrence Keating MD HEMATOLOGY ORDERABLE S [facility] [place] [address] * (ABNORMAL) Basic Metabolic Panel (non-fasting) (07/06/2023 3:54 AM EDT) Glucose 107 65 - 199 mg/dL [facility] Comment:Diabetes: >=200 mg/d L plus symptoms Blood Urea Nitrogen 16 8 - 18 mg/dL [facility] Carbon Dioxide 23 22 - 31 mmol/L [facility] Anion Gap 14 5 - 15 mmol/L [facility] Calcium 10.0 8.5 - 10.5 mg/dL [facility] Est Glomerular Filtration Rate 51(L) >=60 mL/min/1. 73 m?? [facility] [...] MD CHEMISTRY ORDERABL ES Performing Organization Address [facility] Co de Phone Number [facility] [place] [address] * Phosphorus (07/06/2023 3:54 AM EDT) Phosphorus 4.5 2.5 - 4.5 mg/dL [facility] Blood 07/06/2023 3:54 AM EDT 07/06/2023 4:18 AM EDT Narrative Resulting Agency Comment Spec In Lab Eufemia Copeland MD CHEMISTRY ORDERABL ES Performing Organization Address [facility] Co de Phone Number [facility] [place] [address] * Magnesium (07/06/2023 3:54 AM EDT) Magnesium 0.97 0.69 - 1.07 mmol/L [facility] Blood 07/06/2023 3:54 AM EDT 07/06/2023 4:18 AM EDT Narrative Resulting Agency Comment Spec In Lab Eufemia Copeland MD CHEMISTRY ORDERABL ES Performing Organization Address [facility] Co de Phone Number [facility] [place] [address] * Heparin (unfractionated) Level (07/06/2023 3:54 AM EDT) UF Heparin 0.31 IU/mL [facility] S [facility] [place] [address] * Amylase (07/05/2023 5:44 PM EDT) Amylase 35 28 - 100 unit/L [facility] Blood 07/05/2023 5:44 PM EDT 07/05/2023 6:00 PM EDT Narrative Resulting Agency Comment Spec In Lab Terrence Keating MD CHEMISTRY ORDERABLES [facility] [place] [address] * Lipase (07/05/2023 5:44 PM EDT) Lipase 17 0 - 60 unit/L [facility] Blood 07/05/2023 5:44 PM EDT 07/05/2023 6:00 PM EDT Narrative Resulting Agency Comment Spec In Lab Terrence Keating MD CHEMISTRY ORDERABLES [facility] [place] [address] * (ABNORMAL) Basic Metabolic Panel (non-fasting) (07/05/2023 5:44 PM EDT) Glucose 130 65 - 199 mg/dL [facility] Comment:Diabetes: >=200 mg/d L plus symptoms Blood Urea Nitrogen 17 8 - 18 mg/dL [facility] Carbon Dioxide 21(L) 22 - 31 mmol/L [facility] Anion Gap 15 5 - 15 mmol/L [facility] Calcium 9.6 8.5 - 10.5 mg/dL [facility] Est Glomerular Filtration Rate 49(L) >=60 mL/min/1. 73 m?? [facility] [...] ORDERABLES [facility] [place] [id number] * Duplex Study Visceral Arteries, Comp (07/05/2023 9:46 AM EDT) VB Text Report Department: Vascular Surgery Lab Patient: [id number] (LOIDA ROQUE) CPT: [id number] Referring Physician: TERRENCE KEATING ?? Phone: Indications: [...] ?Bi-Triphasic ?101 ?11 ?? Hepatic Artery ? [place]-Biphasic ? 123 ?23 ?? Splenic Artery ? [place]-Biphasic ? 122 ?24 ?? Inf Mes Artery [...] Neutrophil Absolute 5.59 1.70 - 6.10 x10(3)/[facility] Lymph % 22.4 % [facility] Lymphocytes Abs 2.0 0.9 - 3.2 x10(3)/[facility] Monocyte % 9.7 % [facility] Monocyte Abs 0.9 0.3 - 0.9 x10(3)/[facility] Eos % 4.1 % [facility] Eosinophils Abs 0.4 0.0 - 0.4 x10(3)/[facility] Basophil % 0.6 % [facility] Baso Absolute 0.0 0.0 - 0.1 x10(3)/[facility] Immature Gran % 0.20 % [facility] Comment: Immature granulocytes(IG's)percentage and absolute count will include metamyelocytes, myelocytes, and promyelocytes. Blood smears from CBCs yielding IG's will be scanned manually for concordance. If this scan disagrees with the automated IG or if promyelocytes are noted, a manual differential will be performed. Immature Gran Absolute 0.02 0.00 - 0.04 x10(3)/[facility] Blood 07/05/2023 5:05 AM EDT 07/05/2023 5:17 AM EDT Narrative Resulting Agency Comment Spec In Lab Terrence Keating MD HEMATOLOGY ORDERABLE S [facility] [place] [address] * (ABNORMAL) Hemogram (07/05/2023 5:05 AM EDT) White Blood Cell 8.9 4.0 - 9.5 x10(3)/ L [facility] Red Blood Cell 4.42 4.00 - 5.21 x10(6)/ L [facility] Hemoglobin 13.7 11.7 - 15.5 g/dL [facility] Hematocrit 41.4 35.7 - 45.8 % [facility] Mean Cell Volume 93.7 82.6 - 94.4 fL [facility] Mean Cell Hemoglobin 31.0 27.1 - 32.0 pg [facility] Mean Cell Hemoglobin Concentration 33.1 31.7 - 35.0 g/dL [facility] Platelet 245 145 - 357 x10(3)/mc L [facility] RDW Standard Deviation 47.1(H) 37.0 - 46.0 fL [facility] RDW coefficient of variation 13.7 11.5 - 14.1 % [facility] Mean Platelet Volume 10.8 7.6 - 12.9 [facility] NRBC% auto 0.0 % [facility] NRBC Absolute 0.000 0.000 - 0.000 x10(3)/mc L [facility] Blood 07/05/2023 5:05 AM EDT 07/05/2023 5:17 AM EDT Narrative Resulting Agency Comment Spec In Lab Terrence Keating MD HEMATOLOGY ORDERABLE S Performing Organization Address [facility]/[place] [address] * Heparin (unfractionated) Level (07/05/2023 5:05 AM EDT) UF Heparin 0.35 IU/mL [facility] MD HEMATOLOGY ORDERABLE S Performing Organization Address City/[facility]/ZIP Co de Phone Number [facility] [place] [address] * (ABNORMAL) Basic Metabolic Panel (non-fasting) (07/05/2023 5:05 AM EDT) Glucose 114 65 - 199 mg/dL [facility] Comment:Diabetes: >=200 mg/d L plus symptoms Blood Urea Nitrogen 19(H) 8 - 18 mg/dL [facility] Carbon Dioxide 25 22 - 31 mmol/L [facility] Anion Gap 12 5 - 15 mmol/L [facility] Calcium 10.0 8.5 - 10.5 mg/dL [facility] Est Glomerular Filtration Rate 41(L) >=60 mL/min/1. 73 m?? [facility] [...] MD CHEMISTRY ORDERABL ES Performing Organization Address [facility] Co de Phone Number [facility] [place] [address] * (ABNORMAL) Phosphorus (07/05/2023 5:05 AM EDT) Pathologist [facility] Phosphorus 5.0(H) 2.5 - 4.5 mg/dL [facility] Blood 07/05/2023 5:05 AM EDT 07/05/2023 5:17 AM EDT Narrative Resulting Agency Comment Spec In Lab Eufemia Copeland MD CHEMISTRY ORDERABL ES Performing Organization Address [facility] Co de Phone Number [facility] [place] [address] * Magnesium (07/05/2023 5:05 AM EDT) Pathologist [facility] Magnesium 1.01 0.69 - 1.07 mmol/L [facility] Blood 07/05/2023 5:05 AM EDT 07/05/2023 5:17 AM EDT Narrative Resulting Agency Comment Spec In Lab Eufemia Copeland MD CHEMISTRY ORDERABL ES Performing Organization Address [facility] Co de Phone Number [facility] [place] [address] * EKG 12 Lead (07/04/2023 11:41 AM EDT) Ventricular rate 76 BPM MUSE SYSTEM Atrial Rate 76 BPM MUSE SYSTEM P-R Interval 174 ms MUSE SYSTEM QRS Duration 88 ms MUSE SYSTEM Q-T Interval 450 ms MUSE SYSTEM QTC Calculated (Bezet) 506 ms MUSE SYSTEM Calculated P [place] 36 degrees MUSE SYSTEM Calculated R [place] 35 degrees MUSE SYSTEM Calculated T [place] 37 degrees MUSE SYSTEM INTERPRETATION Normal sinus [...] 3:47 AM EDT) Neutrophil % 63.5 % [facility] Neutrophil Absolute 5.19 1.70 - 6.10 x10(3)/[facility] Lymph % 24.4 % [facility] Lymphocytes Abs 2.0 0.9 - 3.2 x10(3)/[facility] Monocyte % 8.1 % [facility] Monocyte Abs 0.7 0.3 - 0.9 x10(3)/[facility] Eos % 3.4 % [facility] Eosinophils Abs 0.3 0.0 - 0.4 x10(3)/[facility] Basophil % 0.4 % [facility] Baso Absolute 0.0 0.0 - 0.1 x10(3)/[facility] Immature Gran % 0.20 % [facility] Comment: Immature granulocytes(IG's)percentage and absolute count will include metamyelocytes, myelocytes, and promyelocytes. Blood smears from CBCs yielding IG's will be scanned manually for concordance. If this scan disagrees with the automated IG or if promyelocytes are noted, a manual differential will be performed. Immature Gran Absolute 0.02 0.00 - 0.04 x10(3)/[facility] Blood 07/04/2023 3:47 AM EDT 07/04/2023 4:15 AM EDT Narrative Resulting Agency Comment Spec In Lab Terrence Keating MD HEMATOLOGY ORDERABLE S [facility] [place] [address] * (ABNORMAL) Hemogram (07/04/2023 3:47 AM EDT) White Blood Cell 8.2 4.0 - 9.5 x10(3)/mc L [facility] Red Blood Cell 4.26 4.00 - 5.21 x10(6)/mc L [facility] Hemoglobin 13.5 11.7 - 15.5 g/dL [facility] Hematocrit 40.0 35.7 - 45.8 % [facility] Mean Cell Volume 93.9 82.6 - 94.4 fL [facility] Mean Cell Hemoglobin 31.7 27.1 - 32.0 pg [facility] Mean Cell Hemoglobin Concentration 33.8 31.7 - 35.0 g/dL [facility] Platelet 219 145 - 357 x10(3)/mc L [facility] RDW Standard Deviation 47.0(H) 37.0 - 46.0 fL [facility] RDW coefficient of variation 13.7 11.5 - 14.1 % [facility] Mean Platelet Volume 11.0 7.6 - 12.9 fL [facility] NRBC% auto 0.0 % [facility] NRBC Absolute 0.000 0.000 - 0.000 x10(3)/ L [facility] Blood 07/04/2023 3:47 AM EDT 07/04/2023 4:15 AM EDT Narrative Resulting Agency Comment Spec In Lab Terrence Keating MD HEMATOLOGY ORDERABLE S [facility] [place] [address] * Heparin (unfractionated) Level (07/04/2023 3:47 AM EDT) Pathologist [facility] UF Heparin 0.44 IU/mL LASHONDA HITC [facility] [...] S [facility] [place] [address] * (ABNORMAL) Basic Metabolic Panel (non-fasting) (07/04/2023 3:47 AM EDT) Glucose 104 65 - 199 mg/dL [facility] Comment:Diabetes: >=200 mg/d L plus symptoms Blood Urea Nitrogen 16 8 - 18 mg/dL [facility] Carbon Dioxide 21(L) 22 - 31 mmol/L [facility] Anion Gap 16(H) 5 - 15 mmol/L [facility] Calcium 9.5 8.5 - 10.5 mg/dL [facility] Est Glomerular Filtration Rate 50(L) >=60 mL/min/1. 73 m?? [facility] [...] ES [facility] [place] [address] * (ABNORMAL) Phosphorus (07/04/2023 3:47 AM EDT) Phosphorus 4.9(H) 2.5 - 4.5 mg/dL [facility] Blood 07/04/2023 3:47 AM EDT 07/04/2023 4:15 AM EDT Narrative Resulting Agency Comment Spec In Lab Eufemia Copeland MD CHEMISTRY ORDERABL ES [facility] [place] [address] * Magnesium (07/04/2023 3:47 AM EDT) Magnesium 1.05 0.69 - 1.07 mmol/L [facility] Blood 07/04/2023 3:47 AM EDT 07/04/2023 4:15 AM EDT Narrative Resulting Agency Comment Spec In Lab Eufemia Copeland MD CHEMISTRY ORDERABL ES Performing Organization Address [facility] Co de Phone Number [facility] [place] [address] * EKG 12 Lead (07/03/2023 9:36 PM EDT) Ventricular rate 61 BPM MUSE SYSTEM Atrial Rate 61 BPM MUSE SYSTEM P-R Interval 188 ms MUSE SYSTEM QRS Duration 88 ms MUSE SYSTEM Q-T Interval 512 ms MUSE SYSTEM QTC Calculated (Bezet) 515 ms MUSE SYSTEM Calculated P [place] 56 degrees MUSE SYSTEM Calculated R [place] 69 degrees MUSE SYSTEM Calculated T [place] 29 degrees MUSE SYSTEM INTERPRETATION Normal sinus [...] Beck MD ECG ORDERABLES Performing Organization Address [facility] de Phone Number MUSE SYSTEM * Magnesium (07/03/2023 6:00 PM EDT) Pathologist [facility] Magnesium 0.89 0.69 - 1.07 mmol/L [facility] Blood 07/03/2023 6:00 PM EDT 07/03/2023 6:07 PM EDT Narrative Resulting Agency Comment Spec In Lab Lino Calles MD CHEMISTRY ORDERABLES Performing Organization Address [facility] Co de Phone Number [facility] [place] [address] * (ABNORMAL) Basic Metabolic Panel (non-fasting) (07/03/2023 6:00 PM EDT) Glucose 116 65 - 199 mg/dL [facility] Comment:Diabetes: >=200 mg/d L plus symptoms Blood Urea Nitrogen 16 8 - 18 mg/dL [facility] Carbon Dioxide 21(L) 22 - 31 mmol/L [facility] Anion Gap 14 5 - 15 mmol/L [facility] Calcium 9.5 8.5 - 10.5 mg/dL [facility] Est Glomerular Filtration Rate 46(L) >=60 mL/min/1. 73 m?? [facility] [...] ORDERABLES [facility] [place] [address] * XR Chest One View (07/03/2023 3:18 PM EDT) WORKSTATION ID [id number] RAD Anatomical Region Laterality Modality Chest N/A [...] care nurse that requested your imaging first. Lino Calles MD IMG DX ORDERABLES * Arterial Duplex Leg, Unil (07/03/2023 9:34 AM EDT) VB Text Report Department: Vascular Surgery Lab Patient: [id number] (LOIDA ROQUE) CPT: 58429 Referring Physician: LINO CALLES ?? Phone: Indications: [...] Neutrophil Absolute 5.51 1.70 - 6.10 x10(3)/[facility] Lymph % 20.7 % [facility] Lymphocytes Abs 1.7 0.9 - 3.2 x10(3)/[facility] Monocyte % 7.7 % [facility] Monocyte Abs 0.6 0.3 - 0.9 x10(3)/[facility] Eos % 3.7 % [facility] Eosinophils Abs 0.3 0.0 - 0.4 x10(3)/[facility] Basophil % 0.5 % [facility] Baso Absolute 0.0 0.0 - 0.1 x10(3)/[facility] Immature Gran % 0.20 % [facility] Comment: Immature granulocytes(IG's)percentage and absolute count will include metamyelocytes, myelocytes, and promyelocytes. Blood smears from CBCs yielding IG's will be scanned manually for concordance. If this scan disagrees with the automated IG or if promyelocytes are noted, a manual differential will be performed. Immature Gran Absolute 0.02 0.00 - 0.04 x10(3)/[facility] Blood 07/03/2023 3:07 AM EDT 07/03/2023 3:15 AM EDT Narrative Resulting Agency Comment Spec In Lab Terrence Keating MD HEMATOLOGY ORDERABLE S [facility] [place] [address] * (ABNORMAL) Hemogram (07/03/2023 3:07 AM EDT) White Blood Cell 8.2 4.0 - 9.5 x10(3)/ L [facility] Red Blood Cell 3.97(L) 4.00 - 5.21 x10(6)/mc L [facility] Hemoglobin 12.5 11.7 - 15.5 g/dL [facility] Hematocrit 38.5 35.7 - 45.8 % [facility] Mean Cell Volume 97.0(H) 82.6 - 94.4 fL [facility] Mean Cell Hemoglobin 31.5 27.1 - 32.0 pg [facility] Mean Cell Hemoglobin Concentration 32.5 31.7 - 35.0 g/dL [facility] Platelet 203 145 - 357 x10(3)/[facility] RDW Standard Deviation 49.6(H) 37.0 - 46.0 fL [facility] RDW coefficient of variation 13.7 11.5 - 14.1 % [facility] Mean Platelet Volume 10.8 7.6 - 12.9 fL [facility] NRBC% auto 0.0 % [facility] NRBC Absolute 0.000 0.000 - 0.000 x10(3)/[facility] Blood 07/03/2023 3:07 AM EDT 07/03/2023 3:15 AM EDT Narrative Resulting Agency Comment Spec In Lab Terrence Keating MD HEMATOLOGY ORDERABLE S [facility] [place] [address] * Heparin (unfractionated) Level (07/03/2023 3:07 AM EDT) UF Heparin 0.49 IU/mL [facility] S [facility] [place] [address] * (ABNORMAL) Basic Metabolic Panel (non-fasting) (07/03/2023 3:07 AM EDT) Glucose 104 65 - 199 mg/dL [facility] Comment:Diabetes: >=200 mg/d L plus symptoms Blood Urea Nitrogen 16 8 - 18 mg/dL [facility] Carbon Dioxide 20(L) 22 - 31 mmol/L [facility] Anion Gap 11 5 - 15 mmol/L [facility] Calcium 8.8 8.5 - 10.5 mg/dL [facility] Est Glomerular Filtration Rate 54(L) >=60 mL/min/1. 73 m?? [facility] [...] MD CHEMISTRY ORDERABL ES Performing Organization Address [facility] Co de Phone Number [facility] [place] [address] * Phosphorus (07/03/2023 3:07 AM EDT) Phosphorus 3.6 2.5 - 4.5 mg/dL [facility] Blood 07/03/2023 3:07 AM EDT 07/03/2023 3:15 AM EDT Narrative Resulting Agency Comment Spec In Lab Eufemia Copeland MD CHEMISTRY ORDERABL ES Performing Organization Address [facility] Co de Phone Number [facility] [place] [address] * Magnesium (07/03/2023 3:07 AM EDT) Magnesium 0.93 0.69 - 1.07 mmol/L [facility] Blood 07/03/2023 3:07 AM EDT 07/03/2023 3:15 AM EDT Narrative Resulting Agency Comment Spec In Lab Eufemia Copeland MD CHEMISTRY ORDERABL ES Performing Organization Address [facility] Co de Phone Number [facility] [place] [address] * Heparin (unfractionated) Level (07/02/2023 8:58 PM EDT) UF Heparin 0.60 IU/mL [facility] [...] Lab Lino Calles MD HEMATOLOGY ORDERABLE S [facility] [place] [address] * VS Arteriogram Mesenteric Vascular Surgery (07/02/2023 [...] anesthetic: 10 cc 1% lidocaine Heparin: Yes [id number] ?? Units Protamine: No ??mg Antibiotics: Ancef [...] We exchanged the sheath for a 7 [place] guide escort steerable sheath over a stiff wire. ??A Glidewire and Kumpe catheter were used to selectively cannulate the superior mesenteric artery. ??Direct angiography of the superior mesenteric artery was performed, confirming the results of the nonselective aortography performed. ??The lesion was predilated with a 4 mm x 40 mm Malcolm balloon, and then a 6 mm X [...] Neutrophil Absolute 4.67 1.70 - 6.10 x10(3)/[facility] Lymph % 27.6 % [facility] Lymphocytes Abs 2.1 0.9 - 3.2 x10(3)/[facility] Monocyte % 6.4 % [facility] Monocyte Abs 0.5 0.3 - 0.9 x10(3)/[facility] Eos % 3.9 % [facility] Eosinophils Abs 0.3 0.0 - 0.4 x10(3)/[facility] Basophil % 0.5 % [facility] Baso Absolute 0.0 0.0 - 0.1 x10(3)/[facility] Immature Gran % 0.30 % [facility] Comment: Immature granulocytes(IG's)percentage and absolute count will include metamyelocytes, myelocytes, and promyelocytes. Blood smears from CBCs yielding IG's will be scanned manually for concordance. If this scan disagrees with the automated IG or if promyelocytes are noted, a manual differential will be performed. Immature Gran Absolute 0.02 0.00 - 0.04 x10(3)/[facility] Blood 07/02/2023 3:58 AM EDT 07/02/2023 4:14 AM EDT Narrative Resulting Agency Comment Spec In Lab Terrence Keating MD HEMATOLOGY ORDERABLE S [facility] [place] [address] * (ABNORMAL) Hemogram (07/02/2023 3:58 AM EDT) White Blood Cell 7.6 4.0 - 9.5 x10(3)/ L [facility] Red Blood Cell 4.12 4.00 - 5.21 x10(6)/mc L [facility] Hemoglobin 12.9 11.7 - 15.5 g/dL [facility] Hematocrit 39.5 35.7 - 45.8 % [facility] Mean Cell Volume 95.9(H) 82.6 - 94.4 fL [facility] Mean Cell Hemoglobin 31.3 27.1 - 32.0 pg [facility] Mean Cell Hemoglobin Concentration 32.7 31.7 - 35.0 g/dL [facility] Platelet 200 145 - 357 x10(3)/mc L [facility] RDW Standard Deviation 47.4(H) 37.0 - 46.0 [facility] RDW coefficient of variation 13.3 11.5 - 14.1 % [facility] Mean Platelet Volume 10.8 7.6 - 12.9 [facility] NRBC% auto 0.0 % [facility] NRBC Absolute 0.000 0.000 - 0.000 x10(3)/mc L [facility] Blood 07/02/2023 3:58 AM EDT 07/02/2023 4:14 AM EDT Narrative Resulting Agency Comment Spec In Lab Terrence Keating MD HEMATOLOGY ORDERABLE S Performing Organization Address City/State/[facility] Co de Phone Number [facility] [place] [address] * Heparin (unfractionated) Level (07/02/2023 3:58 AM EDT) UF Heparin 0.57 IU/mL [facility] S [facility] [place] [address] * (ABNORMAL) Basic Metabolic Panel (non-fasting) (07/02/2023 3:58 AM EDT) Glucose 96 65 - 199 mg/dL [facility] Comment:Diabetes: >=200 mg/d L plus symptoms Blood Urea Nitrogen 15 8 - 18 mg/dL [facility] Carbon Dioxide 21(L) 22 - 31 mmol/L [facility] Anion Gap 8 5 - 15 mmol/L [facility] Calcium 8.8 8.5 - 10.5 mg/dL [facility] Est Glomerular Filtration Rate 53(L) >=60 mL/min/1. 73 m?? [facility] [...] MD CHEMISTRY ORDERABL ES Performing Organization Address [facility] Co de Phone Number [facility] [place] [address] * Phosphorus (07/02/2023 3:58 AM EDT) Phosphorus 3.8 2.5 - 4.5 mg/dL [facility] Blood 07/02/2023 3:58 AM EDT 07/02/2023 4:14 AM EDT Narrative Resulting Agency Comment Spec In Lab Eufemia Copeland MD CHEMISTRY ORDERABL ES Performing Organization Address [facility] Co de Phone Number [facility] [place] [address] * Magnesium (07/02/2023 3:58 AM EDT) Magnesium 0.95 0.69 - 1.07 mmol/L [facility] Blood 07/02/2023 3:58 AM EDT 07/02/2023 4:14 AM EDT Narrative Resulting Agency Comment Spec In Lab Eufemia Copeland MD CHEMISTRY ORDERABL ES Performing Organization Address [facility] Co de Phone Number [facility] [place] [address] * EKG 12 Lead (07/01/2023 12:08 PM EDT) Ventricular rate 48 BPM MUSE SYSTEM Atrial Rate 48 BPM MUSE SYSTEM P-R Interval 192 ms MUSE SYSTEM QRS Duration 92 ms MUSE SYSTEM Q-T Interval 474 ms MUSE SYSTEM QTC Calculated (Bezet) 423 ms MUSE SYSTEM Calculated P [place] 32 degrees MUSE SYSTEM Calculated R [place] 45 degrees MUSE SYSTEM Calculated T [place] 0 degrees MUSE SYSTEM INTERPRETATION Sinus bradycardia [...] Neutrophil Absolute 3.47 1.70 - 6.10 x10(3)/[facility] LAB[facility] Lymph % 36.5 % [facility] Lymphocytes Abs 2.5 0.9 - 3.2 x10(3)/[facility] Monocyte % 7.7 % [facility] Monocyte Abs 0.5 0.3 - 0.9 x10(3)/[facility] Eos % 4.5 % [facility] Eosinophils Abs 0.3 0.0 - 0.4 x10(3)/[facility] Basophil % 0.7 % [facility] Baso Absolute 0.0 0.0 - 0.1 x10(3)/[facility] Immature Gran % 0.10 % [facility] Comment: Immature granulocytes(IG's)percentage and absolute count will include metamyelocytes, myelocytes, and promyelocytes. Blood smears from CBCs yielding IG's will be scanned manually for concordance. If this scan disagrees with the automated IG or if promyelocytes are noted, a manual differential will be performed. Immature Gran Absolute 0.01 0.00 - 0.04 x10(3)/mcL [facility] Blood 07/01/2023 2:56 AM EDT 07/01/2023 3:22 AM EDT Narrative Resulting Agency Comment Spec In Lab Terrence Keating MD HEMATOLOGY ORDERABLE S [facility] [place] [address] * (ABNORMAL) Hemogram (07/01/2023 2:56 AM EDT) White Blood Cell 6.9 4.0 - 9.5 x10(3)/mc L [facility] Red Blood Cell 4.04 4.00 - 5.21 x10(6)/mc L [facility] Hemoglobin 12.8 11.7 - 15.5 g/dL [facility] Hematocrit 39.0 35.7 - 45.8 % [facility] Mean Cell Volume 96.5(H) 82.6 - 94.4 fL [facility] Mean Cell Hemoglobin 31.7 27.1 - 32.0 pg [facility] Mean Cell Hemoglobin Concentration 32.8 31.7 - 35.0 g/dL [facility] Platelet 224 145 - 357 x10(3)/mc L [facility] RDW Standard Deviation 47.8(H) 37.0 - 46.0 fL [facility] RDW coefficient of variation 13.3 11.5 - 14.1 % [facility] Mean Platelet Volume 11.1 7.6 - 12.9 fL [facility] NRBC% auto 0.0 % [facility] NRBC Absolute 0.000 0.000 - 0.000 x10(3)/mc L [facility] Blood 07/01/2023 2:56 AM EDT 07/01/2023 3:22 AM EDT Narrative Resulting Agency Comment Spec In Lab Terrence Keating MD HEMATOLOGY ORDERABLE S Performing Organization Address City/[facility]/ZIP Co de Phone Number [facility] [place] [address] * Heparin (unfractionated) Level (07/01/2023 2:56 AM EDT) UF Heparin 0.56 IU/mL [facility] MD HEMATOLOGY ORDERABLE S Performing Organization Address City/[facility]/ZIP Co de Phone Number [facility] [place] [address] * (ABNORMAL) Basic Metabolic Panel (non-fasting) (07/01/2023 2:56 AM EDT) Glucose 95 65 - 199 mg/dL [facility] Comment:Diabetes: >=200 mg/d L plus symptoms Blood Urea Nitrogen 16 8 - 18 mg/dL [facility] Carbon Dioxide 22 22 - 31 mmol/L [facility] Anion Gap 10 5 - 15 mmol/L [facility] Calcium 9.0 8.5 - 10.5 mg/dL [facility] Est Glomerular Filtration Rate 53(L) >=60 mL/min/1. 73 m?? [facility] [...] ES [facility] [place] [address] * Phosphorus (07/01/2023 2:56 AM EDT) Phosphorus 4.1 2.5 - 4.5 mg/dL [facility] Blood 07/01/2023 2:56 AM EDT 07/01/2023 3:22 AM EDT Narrative Resulting Agency Comment Spec In Lab Eufemia Copeland MD CHEMISTRY ORDERABL ES Performing Organization Address [facility] Co de Phone Number [facility] [place] [address] * Magnesium (07/01/2023 2:56 AM EDT) Magnesium 0.95 0.69 - 1.07 mmol/L [facility] Blood 07/01/2023 2:56 AM EDT 07/01/2023 3:22 AM EDT Narrative Resulting Agency Comment Spec In Lab Eufemia Copeland MD CHEMISTRY ORDERABL ES Performing Organization Address [facility] Co de Phone Number [facility] [place] [address] * Heparin (unfractionated) Level (06/30/2023 9:24 AM EDT) UF Heparin 0.62 IU/mL [facility] S Performing Organization Address [facility] Co de Phone Number [facility] [place] [address] * Differential, Automated (06/30/2023 3:14 AM EDT) Neutrophil % 49.5 % [facility] Neutrophil Absolute 3.96 1.70 - 6.10 x10(3)/[facility] Lymph % 36.6 % [facility] Lymphocytes Abs 2.9 0.9 - 3.2 x10(3)/[facility] Monocyte % 8.6 % [facility] Monocyte Abs 0.7 0.3 - 0.9 x10(3)/[facility] Eos % 4.1 % [facility] Eosinophils Abs 0.3 0.0 - 0.4 x10(3)/[facility] Basophil % 0.8 % [facility] Baso Absolute 0.1 0.0 - 0.1 x10(3)/[facility] Immature Gran % 0.40 % [facility] Comment: Immature granulocytes(IG's)percentage and absolute count will include metamyelocytes, myelocytes, and promyelocytes. Blood smears from CBCs yielding IG's will be scanned manually for concordance. If this scan disagrees with the automated IG or if promyelocytes are noted, a manual differential will be performed. Immature Gran Absolute 0.03 0.00 - 0.04 x10(3)/[facility] Blood 06/30/2023 3:14 AM EDT 06/30/2023 3:23 AM EDT Narrative Resulting Agency Comment Spec In Lab Terrence Keating MD HEMATOLOGY ORDERABLE S [facility] [place] [address] * Hemogram (06/30/2023 3:14 AM EDT) White Blood Cell 8.0 4.0 - 9.5 x10(3)/[facility] LAB[facility] Red Blood Cell 4.22 4.00 - 5.21 x10(6)/[facility]ORY Hemoglobin 13.1 11.7 - 15.5 g/dL [facility] Hematocrit 39.5 35.7 - 45.8 % [facility] Mean Cell Volume 93.6 82.6 - 94.4 fL [facility] Mean Cell Hemoglobin 31.0 27.1 - 32.0 pg [facility] Mean Cell Hemoglobin Concentration 33.2 31.7 - 35.0 g/dL [facility] Platelet 235 145 - 357 x10(3)/[facility] LABORATORY RDW Standard Deviation 45.3 37.0 - 46.0 fL [facility] RDW coefficient of variation 13.3 11.5 - 14.1 % [facility] Mean Platelet Volume 11.0 7.6 - 12.9 fL [facility] NRBC% auto 0.0 % [facility] NRBC Absolute 0.000 0.000 - 0.000 x10(3)/[facility] Blood 06/30/2023 3:14 AM EDT 06/30/2023 3:23 AM EDT Narrative Resulting Agency Comment Spec In Lab Terrence Keating MD HEMATOLOGY ORDERABLE S [facility] [place] [address] * Heparin (unfractionated) Level (06/30/2023 3:14 AM EDT) UF Heparin 0.70 IU/mL [facility] S [facility] [place] [address] * (ABNORMAL) Basic Metabolic Panel (non-fasting) (06/30/2023 3:14 AM EDT) Glucose 103 65 - 199 mg/dL [facility] Comment:Diabetes: >=200 mg/d L plus symptoms Blood Urea Nitrogen 18 8 - 18 mg/dL [facility] Carbon Dioxide 23 22 - 31 mmol/L [facility] Anion Gap 10 5 - 15 mmol/L [facility] Calcium 9.1 8.5 - 10.5 mg/dL [facility] Est Glomerular Filtration Rate 53(L) >=60 mL/min/1. 73 m?? [facility] [...] MD CHEMISTRY ORDERABL ES Performing Organization Address [facility] Co de Phone Number [facility] [place] [address] * Phosphorus (06/30/2023 3:14 AM EDT) Phosphorus 4.4 2.5 - 4.5 mg/dL [facility] Blood 06/30/2023 3:14 AM EDT 06/30/2023 3:23 AM EDT Narrative Resulting Agency Comment Spec In Lab Eufemia Copeland MD CHEMISTRY ORDERABL ES Performing Organization Address [facility] Co de Phone Number [facility] [place] [address] * Magnesium (06/30/2023 3:14 AM EDT) Magnesium 0.94 0.69 - 1.07 mmol/L [facility] Blood 06/30/2023 3:14 AM EDT 06/30/2023 3:23 AM EDT Narrative Resulting Agency Comment Spec In Lab Eufemia Copeland MD CHEMISTRY ORDERABL ES Performing Organization Address [facility] Co de Phone Number [facility] [place] [address] * Heparin (unfractionated) Level (06/29/2023 8:47 PM EDT) UF Heparin 0.75 IU/mL [facility] MD HEMATOLOGY ORDERABLE S Performing Organization Address City/[facility]/ZIP Co de Phone Number [facility] [place] [address] * EKG 12 Lead (06/29/2023 12:55 PM EDT) [facility] Ventricular rate 53 BPM MUSE SYSTEM Atrial Rate 53 BPM MUSE SYSTEM P-R Interval 196 ms MUSE SYSTEM QRS Duration 90 ms MUSE SYSTEM Q-T Interval 564 ms MUSE SYSTEM QTC Calculated (Bezet) 529 ms MUSE SYSTEM Calculated P [place] 30 degrees MUSE SYSTEM Calculated R [place] 53 degrees MUSE SYSTEM Calculated T [place] 5 degrees MUSE SYSTEM INTERPRETATION Sinus bradycardia Marked ST abnormality, possible inferior subendocardial injury Prolonged QT Abnormal ECG When compared with ECG of 26-JUN-2023 06:04, Nonspecific T wave abnormality no longer evident in Anterolateral leads QT has lengthened Confirmed by MD Angelo Danette ([id number]) on 06/29/2023 8:34:43 PM MUSE SYSTEM 06/29/2023 12:5 5 PM EDT 06/29/2023 8:34 PM EDT Terrence Keating MD ECG ORDERABLES Performing Organization Address City/[facility]/ZIP Co de Phone Number MUSE SYSTEM * (ABNORMAL) Heparin (unfractionated) Level (06/29/2023 11:34 AM EDT) [facility] UF Heparin 1.41(Crit ical) IU/mL [facility] S [facility] [place] [address] * Differential, Automated (06/29/2023 2:39 AM EDT) [facility] Neutrophil % 53.8 % [facility] Neutrophil Absolute 4.46 1.70 - 6.10 x10(3)/[facility] LAB[facility]ATORY Lymph % 33.5 % [facility] Lymphocytes Abs 2.8 0.9 - 3.2 x10(3)/[facility] LAB[facility]ORY Monocyte % 8.3 % [facility] Monocyte Abs 0.7 0.3 - 0.9 x10(3)/[facility] LAB[facility]ATORY Eos % 3.5 % [facility] Eosinophils Abs 0.3 0.0 - 0.4 x10(3)/[facility] LAB[facility]ORY Basophil % 0.5 % [facility] Baso Absolute 0.0 0.0 - 0.1 x10(3)/[facility] LABOR[facility]ORY Immature Gran % 0.40 % [facility] Comment: Immature granulocytes(IG's)percentage and absolute count will include metamyelocytes, myelocytes, and promyelocytes. Blood smears from CBCs yielding IG's will be scanned manually for concordance. If this scan disagrees with the automated IG or if promyelocytes are noted, a manual differential will be performed. Immature Gran Absolute 0.03 0.00 - 0.04 x10(3)/[facility] LAB[facility]ORY Blood 06/29/2023 2:39 AM EDT 06/29/2023 3:33 AM EDT Narrative Resulting Agency Comment Spec In Lab Terrence Keating MD HEMATOLOGY ORDERABLE S [facility] [place] [address] * Hemogram (06/29/2023 2:39 AM EDT) White Blood Cell 8.3 4.0 - 9.5 x10(3)/[facility] LAB[facility]ORY Red Blood Cell 4.19 4.00 - 5.21 x10(6)/[facility] Hemoglobin 13.2 11.7 - 15.5 g/dL [facility] Hematocrit 38.9 35.7 - 45.8 % [facility] Mean Cell Volume 92.8 82.6 - 94.4 fL [facility] Mean Cell Hemoglobin 31.5 27.1 - 32.0 pg [facility] Mean Cell Hemoglobin Concentration 33.9 31.7 - 35.0 g/dL [facility] Platelet 237 145 - 357 x10(3)/[facility] RDW Standard Deviation 45.3 37.0 - 46.0 fL [facility] RDW coefficient of variation 13.3 11.5 - 14.1 % [facility] Mean Platelet Volume 11.4 7.6 - 12.9 fL [facility] NRBC% auto 0.0 % [facility] NRBC Absolute 0.000 0.000 - 0.000 x10(3)/mcL [facility] Blood 06/29/2023 2:39 AM EDT 06/29/2023 3:33 AM EDT Narrative Resulting Agency Comment Spec In Lab Terrence Keating MD HEMATOLOGY ORDERABLE S [facility] [place] [address] * (ABNORMAL) Heparin (unfractionated) Level (06/29/2023 2:39 AM EDT) UF Heparin 1.77(Crit ical) IU/mL [facility] Comment: Specimen drawn more than one hour prior to testing. Results may not be reliable for heparin monitoring. Result may be falsely low. Critical Result called by ?? [facility] Results read back by: ? [...] S [facility] [place] [address] * (ABNORMAL) Basic Metabolic Panel (non-fasting) (06/29/2023 2:39 AM EDT) Glucose 100 65 - 199 mg/dL [facility] Comment:Diabetes: >=200 mg/d L plus symptoms Blood Urea Nitrogen 21(H) 8 - 18 mg/dL [facility] Carbon Dioxide 22 22 - 31 mmol/L [facility] Anion Gap 11 5 - 15 mmol/L [facility] Calcium 9.1 8.5 - 10.5 mg/dL [facility] Est Glomerular Filtration Rate 55(L) >=60 mL/min/1. 73 m?? [facility] [...] MD CHEMISTRY ORDERABL ES Performing Organization Address [facility] de Phone Number [facility] [place] [address] * Phosphorus (06/29/2023 2:39 AM EDT) Phosphorus 4.0 2.5 - 4.5 mg/dL [facility] Blood 06/29/2023 2:39 AM EDT 06/29/2023 3:33 AM EDT Narrative Resulting Agency Comment Spec In Lab Eufemia Copeland MD CHEMISTRY ORDERABL ES Performing Organization Address [facility] Phone Number [facility] [place] [address] * Magnesium (06/29/2023 2:39 AM EDT) Magnesium 0.92 0.69 - 1.07 mmol/L [facility] Blood 06/29/2023 2:39 AM EDT 06/29/2023 3:33 AM EDT Narrative Resulting Agency Comment Spec In Lab Eufemia Copeland MD CHEMISTRY ORDERABL ES Performing Organization Address [facility] Phone Number [facility] [place] [address] * US Abdomen Limited (06/28/2023 12:22 PM EDT) WORKSTATION ID [id number] RAD Anatomical Region Laterality Modality Abdomen Ultrasound [...] who have questions, please contact the health post acute care nurse that requested your imaging first. ?Sigrid Owens, [facility] Coverstitch Binder Electronically Signed Final Report ?? 06/28/2023 02:08 pm Narrative 06/28/2023 2:08 PM EDT Abdominal ? (Signed Final 06/28/2023 02:08 pm) PATIENT INFO: ID #: ? [id number] ?: ??[birth year] (53 yrs)(F) Name: ? LOIDA ?Visit Date: 06/28/2023 12:20 pm ? ROHAN PERFORMED BY: Attending: ?Sigrid Owens MD Resident: ? Karo JOHN, Rafaela Performed By: ? Rick STANFORD, ??Deena Referred By: ?AILYN IRVIN Location: ? [place] SERVICE(S) PROVIDED: UABDLIM - Abdominal Limited Survey Single ? [id number] Organ or Quadrant - [id number] INDICATIONS: RUQ pain, R/o Gall bladder colic, [...] 06/28/2023 02:08 pm) PATIENT INFO: ID #: [id number] : [birth year] (53 yrs)(F) Name: LOIDA Visit Date: 06/28/2023 12:20 pm ROHAN PERFORMED BY: Attending: Sigrid Owens MD Resident: Rafaela Huddleston MD Performed By: Deena Cabrera RDMS Referred By: AILYN IRVIN Location: [place] SERVICE(S) PROVIDED: UABDLIM - Abdominal Limited Survey Single 18091 Organ or Quadrant - [id number] INDICATIONS: RUQ pain, R/o Gall bladder colic, [...] who have questions, please contact the health post acute care nurse that requested your imaging first. Sigrid Owens, E Coverstitch Binder Electronically Signed Final Report 06/28/2023 02:08 pm Ailyn Irvin MD IMG US GEN ORDERABLE S * Duplex Study Visceral Arteries, Comp (06/28/2023 10:19 AM EDT) VB Text Report Department: Vascular Surgery Lab Patient: [id number] (LOIDA ROQUE) CPT: [id number] Referring Physician: HEIDY SULLIVAN ?? Indications: abdominal pain, ? patency/stenosi s Findings: Unilateral ? Waveform ? PSV cm/s ??EDV cm/s ??Patent ?? Dary Visceral Aorta ? 80 ?16 ? Celiac Artery, Proximal ??[place]-Biphasic ? 119 ?26 ? Celiac Artery, Mid ? [place]-Biphasic ? 115 ?21 ? Celiac Artery, Distal ? No Vis ?? Sup Mes Artery Proximal ??Biphasic ?427 ?91 ? Sup Mes Artery Middle ?[place]-Biphasic ? 100 ?17 ? Sup Mes Artery Distal ?[place]-B[place]hasic ?64 ?15 ? Hepatic Artery ?No Vis [...] Neutrophil Absolute 4.46 1.70 - 6.10 x10(3)/[facility] LABORATORY Lymph % 30.6 % [facility] Lymphocytes Abs 2.5 0.9 - 3.2 x10(3)/[facility] Monocyte % 8.8 % [facility] Monocyte Abs 0.7 0.3 - 0.9 x10(3)/[facility] LAB[facility] Eos % 4.6 % [facility] Eosinophils Abs 0.4 0.0 - 0.4 x10(3)/[facility] Basophil % 0.5 % [facility] Baso Absolute 0.0 0.0 - 0.1 x10(3)/[facility] Immature Gran % 0.20 % [facility] Comment: Immature granulocytes(IG's)percentage and absolute count will include metamyelocytes, myelocytes, and promyelocytes. Blood smears from CBCs yielding IG's will be scanned manually for concordance. If this scan disagrees with the automated IG or if promyelocytes are noted, a manual differential will be performed. Immature Gran Absolute 0.02 0.00 - 0.04 x10(3)/[facility] Blood 06/28/2023 1:52 AM EDT 06/28/2023 2:05 AM EDT Narrative Resulting Agency Comment Spec In Lab Terrence Keating MD HEMATOLOGY ORDERABLE S [facility] [place] [address] * Hemogram (06/28/2023 1:52 AM EDT) White Blood Cell 8.1 4.0 - 9.5 x10(3)/[facility] LAB[facility] Red Blood Cell 4.30 4.00 - 5.21 x10(6)/[facility] Hemoglobin 13.4 11.7 - 15.5 g/dL [facility] Hematocrit 40.6 35.7 - 45.8 % [facility] Mean Cell Volume 94.4 82.6 - 94.4 fL [facility] Mean Cell Hemoglobin 31.2 27.1 - 32.0 pg [facility] Mean Cell Hemoglobin Concentration 33.0 31.7 - 35.0 g/dL [facility] Platelet 238 145 - 357 x10(3)/[facility] RDW Standard Deviation 45.7 37.0 - 46.0 fL [facility] RDW coefficient of variation 13.2 11.5 - 14.1 % [facility] Mean Platelet Volume 10.8 7.6 - 12.9 fL [facility] NRBC% auto 0.0 % [facility] NRBC Absolute 0.000 0.000 - 0.000 x10(3)/[facility] Blood 06/28/2023 1:52 AM EDT 06/28/2023 2:05 AM EDT Narrative Resulting Agency Comment Spec In Lab Terrence Keating MD HEMATOLOGY ORDERABLE S [facility] [place] [address] * (ABNORMAL) Basic Metabolic Panel (non-fasting) (06/28/2023 1:52 AM EDT) Glucose 101 65 - 199 mg/dL [facility] Comment:Diabetes: >=200 mg/d L plus symptoms Blood Urea Nitrogen 24(H) 8 - 18 mg/dL [facility] Carbon Dioxide 21(L) 22 - 31 mmol/L [facility] Anion Gap 12 5 - 15 mmol/L [facility] Calcium 9.0 8.5 - 10.5 mg/dL [facility] Est Glomerular Filtration Rate 53(L) >=60 mL/min/1. 73 m?? [facility] [...] ES [facility] [place] [address] * Phosphorus (06/28/2023 1:52 AM EDT) Phosphorus 4.5 2.5 - 4.5 mg/dL [facility] Blood 06/28/2023 1:52 AM EDT 06/28/2023 2:05 AM EDT Narrative Resulting Agency Comment Spec In Lab Eufemia Copeland MD CHEMISTRY ORDERABL ES Performing Organization Address City/[facility]/ZIP Co de Phone Number [facility] [place] [address] * Magnesium (06/28/2023 1:52 AM EDT) Magnesium 0.93 0.69 - 1.07 mmol/L [facility] Blood 06/28/2023 1:52 AM EDT 06/28/2023 2:05 AM EDT Narrative Resulting Agency Comment Spec In Lab Eufemia Copeland MD CHEMISTRY ORDERABL ES Performing Organization Address [facility] Co de Phone Number [facility] [place] [address] * (ABNORMAL) Basic Metabolic Panel (non-fasting) (06/27/2023 8:06 PM EDT) Pathologist [facility] Glucose 94 65 - 199 mg/dL [facility] Comment:Diabetes: >=200 mg/d L plus symptoms Blood Urea Nitrogen 24(H) 8 - 18 mg/dL [facility] Carbon Dioxide 24 22 - 31 mmol/L [facility] Anion Gap 11 5 - 15 mmol/L [facility] Calcium 9.3 8.5 - 10.5 mg/dL [facility] Est Glomerular Filtration Rate 50(L) >=60 mL/min/1. 73 m?? [facility] [...] Irvin MD CHEMISTRY ORDERABLES Performing Organization Address City/[facility]/ZIP Co de Phone Number [facility] [place] [address] * (ABNORMAL) Hepatic Function Panel (06/27/2023 4:34 AM EDT) Pathologist [facility] Protein, Total 6.4 6.1 - 8.0 g/dL [facility] Albumin 3.8 3.2 - 5.2 g/dL [facility] Aspartate Aminotransferase 21 0 - 30 unit/L [facility] Alanine Aminotransferase 22 0 - 30 unit/L [facility] Alkaline Phosphatase 56 35 - 105 unit/L [facility] Bilirubin, Total <0.2(L) 0.2 - 1.3 mg/dL [facility] Bilirubin, Direct <0.1 0.0 - 0.3 mg/dL [facility] Blood Venous Draw / Unknown 06/27/2023 4:34 AM EDT 06/27/2023 4:53 AM EDT Narrative Resulting Agency Comment Spec In Lab Ailyn Irvin MD CHEMISTRY ORDERABLES Performing Organization Address City/[facility]/ZIP Co de Phone Number [facility] [place] [address] * Differential, Automated (06/27/2023 4:34 AM EDT) Pathologist [facility] Neutrophil % 52.7 % [facility] Neutrophil Absolute 4.01 1.70 - 6.10 x10(3)/[facility] Lymph % 33.8 % [facility] Lymphocytes Abs 2.6 0.9 - 3.2 x10(3)/[facility] Monocyte % 8.8 % [facility] Monocyte Abs 0.7 0.3 - 0.9 x10(3)/[facility] Eos % 3.8 % [facility] Eosinophils Abs 0.3 0.0 - 0.4 x10(3)/[facility] Basophil % 0.5 % [facility] Baso Absolute 0.0 0.0 - 0.1 x10(3)/[facility] Immature Gran % 0.40 % [facility] Comment: Immature granulocytes(IG's)percentage and absolute count will include metamyelocytes, myelocytes, and promyelocytes. Blood smears from CBCs yielding IG's will be scanned manually for concordance. If this scan disagrees with the automated IG or if promyelocytes are noted, a manual differential will be performed. Immature Gran Absolute 0.03 0.00 - 0.04 x10(3)/[facility] Blood 06/27/2023 4:34 AM EDT 06/27/2023 4:51 AM EDT Narrative Resulting Agency Comment Spec In Lab Terrence Keating MD HEMATOLOGY ORDERABLE S [facility] [place] [address] * Hemogram (06/27/2023 4:34 AM EDT) Pathologist [facility] White Blood Cell 7.6 4.0 - 9.5 x10(3)/[facility] Red Blood Cell 4.15 4.00 - 5.21 x10(6)/[facility] Hemoglobin 12.9 11.7 - 15.5 g/dL [facility] Hematocrit 39.0 35.7 - 45.8 % [facility] Mean Cell Volume 94.0 82.6 - 94.4 fL [facility] Mean Cell Hemoglobin 31.1 27.1 - 32.0 pg [facility] Mean Cell Hemoglobin Concentration 33.1 31.7 - 35.0 g/dL [facility] Platelet 245 145 - 357 x10(3)/[facility] RDW Standard Deviation 45.2 37.0 - 46.0 fL [facility] RDW coefficient of variation 13.2 11.5 - 14.1 % [facility] Mean Platelet Volume 11.2 7.6 - 12.9 fL [facility] NRBC% auto 0.0 % [facility] NRBC Absolute 0.000 0.000 - 0.000 x10(3)/[facility] Blood 06/27/2023 4:34 AM EDT 06/27/2023 4:51 AM EDT Narrative Resulting Agency Comment Spec In Lab Terrence Keating MD HEMATOLOGY ORDERABLE S [facility] [place] [address] * (ABNORMAL) Basic Metabolic Panel (non-fasting) (06/27/2023 4:34 AM EDT) Glucose 99 65 - 199 mg/dL [facility] Comment:Diabetes: >=200 mg/d L plus symptoms Blood Urea Nitrogen 26(H) 8 - 18 mg/dL [facility] Carbon Dioxide 22 22 - 31 mmol/L [facility] Anion Gap 11 5 - 15 mmol/L [facility] Calcium 9.1 8.5 - 10.5 mg/dL [facility] Est Glomerular Filtration Rate 53(L) >=60 mL/min/1. 73 m?? [facility] [...] MD CHEMISTRY ORDERABL ES Performing Organization Address City/[facility] Co de Phone Number [facility] [place] [address] * (ABNORMAL) Phosphorus (06/27/2023 4:34 AM EDT) Phosphorus 4.7(H) 2.5 - 4.5 mg/dL [facility] Blood 06/27/2023 4:34 AM EDT 06/27/2023 4:51 AM EDT Narrative Resulting Agency Comment Spec In Lab Eufemia Copeland MD CHEMISTRY ORDERABL ES [facility] [place] [address] * Magnesium (06/27/2023 4:34 AM EDT) Magnesium 0.90 0.69 - 1.07 mmol/L [facility] Blood 06/27/2023 4:34 AM EDT 06/27/2023 4:51 AM EDT Narrative Resulting Agency Comment Spec In Lab Eufemia Copeland MD CHEMISTRY ORDERABL ES Performing Organization Address [facility]/ZIP Co de Phone Number [facility] [place] [address] * (ABNORMAL) Basic Metabolic Panel (non-fasting) (06/26/2023 4:58 PM EDT) Pathologist [facility] Glucose 106 65 - 199 mg/dL [facility] Comment:Diabetes: >=200 mg/d L plus symptoms Blood Urea Nitrogen 24(H) 8 - 18 mg/dL [facility] Carbon Dioxide 21(L) 22 - 31 mmol/L [facility] Anion Gap 13 5 - 15 mmol/L [facility] Calcium 9.1 8.5 - 10.5 mg/dL [facility] Est Glomerular Filtration Rate 52(L) >=60 mL/min/1. 73 m?? [facility] [...] Irvin MD CHEMISTRY ORDERABLES Performing Organization Address [facility] Co de Phone Number [facility] [place] [address] * Urinalysis Microscopic Exam (06/26/2023 11:09 AM EDT) RBC, Urine 0 0 - 4 /HPF [facility] WBC, Urine 3 0 - 5 /HPF [facility] Squamous Epithelial Cells Raw Data, Urine 1 <=4 /HPF [facility] Hyaline Casts, Urine 1 0 - 2 /LPF [facility] Clean Catch Urine 06/26/2023 11:09 AM EDT 06/26/2023 5:45 PM EDT Narrative Resulting Agency Comment Spec In Lab Ailyn Irvin MD URINE ORDERABLES Performing Organization Address [facility] [facility] Co de Phone Number [facility] [place] [address] * (ABNORMAL) Urinalysis with reflex Culture (06/26/2023 11:09 AM EDT) Glucose, Urine Dipstick Negative Negative mg/dL [facility] Protein, Urine Dipstick Negative Negative mg/dL [facility] Bilirubin, Urine Dipstick Negative Negative mg/dL [facility] Comment: Clinical correlation required for positive Urine Bilirubin results as false positive may occur with some drugs and drug related products. If a false positive is suspected a serum total bilirubin should be considered if clinically indicated. Urobilinogen, Urine Dipstick Normal Normal mg/dL [facility] pH, Urn (dipstick) 6.0 5.0 - 8.0 [facility] Blood, Urine Dipstick Negative Negative mg/dL [facility] Ketone, Urine Dipstick Negative Negative mg/dL [facility] Nitrite, Urine Dipstick Negative Negative [facility] Leukocytes, Urine Dipstick Trace(A) Negative [facility] Appearance, Urine Dipstick Clear Clear [facility] Specific [place] Urine Automated 1.013 1.005 - 1.030 [facility] Color, Urine Dipstick Yellow Yellow [facility] Reflex to Culture No [facility] Clean Catch Urine 06/26/2023 11:09 AM EDT 06/26/2023 5:45 PM EDT Narrative Resulting Agency Comment Spec In Lab Ailyn Irvin MD URINE ORDERABLES [facility] [place] [address] * EKG 12 Lead (06/26/2023 6:04 AM EDT) Ventricular rate 46 BPM MUSE SYSTEM Atrial Rate 46 BPM MUSE SYSTEM P-R Interval 204 ms MUSE SYSTEM QRS Duration 90 ms MUSE SYSTEM Q-T Interval 466 ms MUSE SYSTEM QTC Calculated (Bezet) 407 ms MUSE SYSTEM Calculated P At[place] 38 degrees MUSE SYSTEM Calculated R At[place] 48 degrees MUSE SYSTEM Calculated T [place] 13 degrees MUSE SYSTEM INTERPRETATION Sinus bradycardia Nonspecific ST and T wave abnormality Abnormal ECG When compared with ECG of 23-JUN-2023 09:54, No significant change was found Confirmed by MD Dalia, Willy Huerta ([id number]) on 06/29/2023 6:09:20 AM MUSE SYSTEM 06/26/2023 6:04 AM EDT 06/29/2023 6:09 AM EDT Eufemia Copeland MD ECG ORDERABLES MUSE SYSTEM * Differential, Automated (06/26/2023 4:06 AM EDT) Neutrophil % 55.3 % [facility] Neutrophil Absolute 4.63 1.70 - 6.10 x10(3)/[facility] Lymph % 32.6 % [facility] Lymphocytes Abs 2.7 0.9 - 3.2 x10(3)/[facility] Monocyte % 8.2 % [facility] Monocyte Abs 0.7 0.3 - 0.9 x10(3)/[facility] Eos % 3.2 % [facility] Eosinophils Abs 0.3 0.0 - 0.4 x10(3)/[facility] Basophil % 0.5 % [facility] Baso Absolute 0.0 0.0 - 0.1 x10(3)/[facility] Immature Gran % 0.20 % [facility] Comment: Immature granulocytes(IG's)percentage and absolute count will include metamyelocytes, myelocytes, and promyelocytes. Blood smears from CBCs yielding IG's will be scanned manually for concordance. If this scan disagrees with the automated IG or if promyelocytes are noted, a manual differential will be performed. Immature Gran Absolute 0.02 0.00 - 0.04 x10(3)/[facility] Blood 06/26/2023 4:06 AM EDT 06/26/2023 4:18 AM EDT Narrative Resulting Agency Comment Spec In Lab Terrence Keating MD HEMATOLOGY ORDERABLE S [facility] [place] [address] * (ABNORMAL) Hemogram (06/26/2023 4:06 AM EDT) White Blood Cell 8.4 4.0 - 9.5 x10(3)/mc L [facility] Red Blood Cell 4.52 4.00 - 5.21 x10(6)/mc L [facility] Hemoglobin 14.0 11.7 - 15.5 g/dL [facility] Hematocrit 43.6 35.7 - 45.8 % [facility] Mean Cell Volume 96.5(H) 82.6 - 94.4 fL [facility] Mean Cell Hemoglobin 31.0 27.1 - 32.0 pg [facility] Mean Cell Hemoglobin Concentration 32.1 31.7 - 35.0 g/dL [facility] Platelet 258 145 - 357 x10(3)/[facility] RDW Standard Deviation 46.7(H) 37.0 - 46.0 [facility] RDW coefficient of variation 13.2 11.5 - 14.1 % [facility] Mean Platelet Volume 11.1 7.6 - 12.9 fL [facility] NRBC% auto 0.0 % [facility] NRBC Absolute 0.000 0.000 - 0.000 x10(3)/[facility] Blood 06/26/2023 4:06 AM EDT 06/26/2023 4:18 AM EDT Narrative Resulting Agency Comment Spec In Lab Terrence Keating MD HEMATOLOGY ORDERABLE S [facility] [place] [address] * (ABNORMAL) Basic Metabolic Panel (non-fasting) (06/26/2023 4:06 AM EDT) Pathologist [facility] Glucose 100 65 - 199 mg/dL [facility] Comment:Diabetes: >=200 mg/d L plus symptoms Blood Urea Nitrogen 25(H) 8 - 18 mg/dL [facility] Carbon Dioxide 19(L) 22 - 31 mmol/L [facility] Anion Gap 12 5 - 15 mmol/L [facility] Calcium 9.6 8.5 - 10.5 mg/dL [facility] Est Glomerular Filtration Rate 52(L) >=60 mL/min/1. 73 m?? [facility] [...] ES [facility] [place] [address] * Phosphorus (06/26/2023 4:06 AM EDT) Phosphorus 4.3 2.5 - 4.5 mg/dL [facility] Blood 06/26/2023 4:06 AM EDT 06/26/2023 4:18 AM EDT Narrative Resulting Agency Comment Spec In Lab Eufemia Copeland MD CHEMISTRY ORDERABL ES Performing Organization Address [facility] Co de Phone Number [facility] [place] [address] * Magnesium (06/26/2023 4:06 AM EDT) Pathologist [facility] Magnesium 0.96 0.69 - 1.07 mmol/L [facility] Blood 06/26/2023 4:06 AM EDT 06/26/2023 4:18 AM EDT Narrative Resulting Agency Comment Spec In Lab Eufemia Copeland MD CHEMISTRY ORDERABL ES Performing Organization Address [facility] de Phone Number [facility] [place] [address] * Differential, Automated (06/25/2023 1:50 AM EDT) Neutrophil % 56.2 % [facility] Neutrophil Absolute 4.06 1.70 - 6.10 x10(3)/[facility] Lymph % 30.5 % [facility] Lymphocytes Abs 2.2 0.9 - 3.2 x10(3)/[facility] Monocyte % 8.7 % [facility] Monocyte Abs 0.6 0.3 - 0.9 x10(3)/[facility] Eos % 3.9 % [facility] Eosinophils Abs 0.3 0.0 - 0.4 x10(3)/[facility] Basophil % 0.6 % [facility] Baso Absolute 0.0 0.0 - 0.1 x10(3)/[facility] Immature Gran % 0.10 % [facility] Comment: Immature granulocytes(IG's)percentage and absolute count will include metamyelocytes, myelocytes, and promyelocytes. Blood smears from CBCs yielding IG's will be scanned manually for concordance. If this scan disagrees with the automated IG or if promyelocytes are noted, a manual differential will be performed. Immature Gran Absolute 0.01 0.00 - 0.04 x10(3)/[facility] Blood 06/25/2023 1:50 AM EDT 06/25/2023 2:16 AM EDT Narrative Resulting Agency Comment Spec In Lab Terrence Keating MD HEMATOLOGY ORDERABLE S [facility] [place] [address] * Hemogram (06/25/2023 1:50 AM EDT) White Blood Cell 7.2 4.0 - 9.5 x10(3)/[facility] Red Blood Cell 4.57 4.00 - 5.21 x10(6)/[facility] Hemoglobin 14.4 11.7 - 15.5 g/dL [facility] Hematocrit 42.9 35.7 - 45.8 % [facility] Mean Cell Volume 93.9 82.6 - 94.4 fL [facility] Mean Cell Hemoglobin 31.5 27.1 - 32.0 pg [facility] Mean Cell Hemoglobin Concentration 33.6 31.7 - 35.0 g/dL [facility] Platelet 241 145 - 357 x10(3)/[facility] RDW Standard Deviation 44.7 37.0 - 46.0 fL [facility] RDW coefficient of variation 13.2 11.5 - 14.1 % [facility] Mean Platelet Volume 11.5 7.6 - 12.9 fL [facility] NRBC% auto 0.0 % [facility] NRBC Absolute 0.000 0.000 - 0.000 x10(3)/mcL [facility] Blood 06/25/2023 1:50 AM EDT 06/25/2023 2:16 AM EDT Narrative Resulting Agency Comment Spec In Lab Terrence Keating MD HEMATOLOGY ORDERABLE S [facility] [place] [address] * (ABNORMAL) Basic Metabolic Panel (non-fasting) (06/25/2023 1:50 AM EDT) Glucose 99 65 - 199 mg/dL [facility] Comment:Diabetes: >=200 mg/d L plus symptoms Blood Urea Nitrogen 20(H) 8 - 18 mg/dL [facility] Carbon Dioxide 25 22 - 31 mmol/L [facility] Anion Gap 12 5 - 15 mmol/L [facility] Calcium 9.4 8.5 - 10.5 mg/dL [facility] Est Glomerular Filtration Rate 38(L) >=60 mL/min/1. 73 m?? [facility] [...] MD CHEMISTRY ORDERABL ES Performing Organization Address City/[facility]/ZIP Co de Phone Number [facility] [place] [address] * Phosphorus (06/25/2023 1:50 AM EDT) Phosphorus 4.4 2.5 - 4.5 mg/dL [facility] Blood 06/25/2023 1:50 AM EDT 06/25/2023 2:16 AM EDT Narrative Resulting Agency Comment Spec In Lab Eufemia Copeland MD CHEMISTRY ORDERABL ES Performing Organization Address [facility] Co de Phone Number [facility] [place] [address] * Magnesium (06/25/2023 1:50 AM EDT) Magnesium 0.99 0.69 - 1.07 mmol/L [facility] Blood 06/25/2023 1:50 AM EDT 06/25/2023 2:16 AM EDT Narrative Resulting Agency Comment Spec In Lab Eufemia Copeland MD CHEMISTRY ORDERABL ES Performing Organization Address City/[facility] Co de Phone Number [facility] [place] [address] * (ABNORMAL) pro-Brain Natriuretic Peptide (06/24/2023 3:38 AM EDT) NT-proBNP 1,239(H) <=124 pg/mL [facility] Blood Venous Draw / Unknown 06/24/2023 3:38 AM EDT 06/24/2023 3:49 AM EDT Narrative Resulting Agency Comment Spec In Lab Ailyn Irvin MD CHEMISTRY ORDERABLES [facility] [place] [address] * Differential, Automated (06/24/2023 3:38 AM EDT) Neutrophil % 51.6 % [facility] Neutrophil Absolute 3.54 1.70 - 6.10 x10(3)/[facility] Lymph % 36.0 % [facility] Lymphocytes Abs 2.5 0.9 - 3.2 x10(3)/[facility] Monocyte % 7.8 % [facility] Monocyte Abs 0.5 0.3 - 0.9 x10(3)/[facility] Eos % 3.6 % [facility] Eosinophils Abs 0.2 0.0 - 0.4 x10(3)/[facility] Basophil % 0.7 % [facility] Baso Absolute 0.0 0.0 - 0.1 x10(3)/[facility] Immature Gran % 0.30 % [facility] Comment: Immature granulocytes(IG's)percentage and absolute count will include metamyelocytes, myelocytes, and promyelocytes. Blood smears from CBCs yielding IG's will be scanned manually for concordance. If this scan disagrees with the automated IG or if promyelocytes are noted, a manual differential will be performed. Immature Gran Absolute 0.02 0.00 - 0.04 x10(3)/[facility] Blood 06/24/2023 3:38 AM EDT 06/24/2023 3:49 AM EDT Narrative Resulting Agency Comment Spec In Lab Terrence Keating MD HEMATOLOGY ORDERABLE S [facility] [place] [address] * Hemogram (06/24/2023 3:38 AM EDT) [facility] White Blood Cell 6.9 4.0 - 9.5 x10(3)/[facility] Red Blood Cell 4.36 4.00 - 5.21 x10(6)/[facility] Hemoglobin 13.6 11.7 - 15.5 g/dL [facility] Hematocrit 40.7 35.7 - 45.8 % [facility] Mean Cell Volume 93.3 82.6 - 94.4 fL [facility] Mean Cell Hemoglobin 31.2 27.1 - 32.0 pg [facility] Mean Cell Hemoglobin Concentration 33.4 31.7 - 35.0 g/dL [facility] Platelet 220 145 - 357 x10(3)/[facility] RDW Standard Deviation 44.5 37.0 - 46.0 [facility] RDW coefficient of variation 13.0 11.5 - 14.1 % [facility] Mean Platelet Volume 10.8 7.6 - 12.9 fL [facility] NRBC% auto 0.0 % [facility] NRBC Absolute 0.000 0.000 - 0.000 x10(3)/[facility] Blood 06/24/2023 3:38 AM EDT 06/24/2023 3:49 AM EDT Narrative Resulting Agency Comment Spec In Lab Terrence Keating MD HEMATOLOGY ORDERABLE S [facility] [place] [address] * Heparin (unfractionated) Level (06/24/2023 3:38 AM EDT) Pathologist [facility] UF Heparin 0.44 IU/mL [facility] S [facility] [place] [address] * (ABNORMAL) Basic Metabolic Panel (non-fasting) (06/24/2023 3:38 AM EDT) Glucose 96 65 - 199 mg/dL [facility] Comment:Diabetes: >=200 mg/d L plus symptoms Blood Urea Nitrogen 20(H) 8 - 18 mg/dL [facility] Carbon Dioxide 21(L) 22 - 31 mmol/L [facility] Anion Gap 13 5 - 15 mmol/L [facility] Calcium 9.1 8.5 - 10.5 mg/dL [facility] Est Glomerular Filtration Rate 57(L) >=60 mL/min/1. 73 m?? [facility] [...] MD CHEMISTRY ORDERABL ES Performing Organization Address City/[facility] Co de Phone Number [facility] [place] [address] * Phosphorus (06/24/2023 3:38 AM EDT) Phosphorus 4.1 2.5 - 4.5 mg/dL [facility] Blood 06/24/2023 3:38 AM EDT 06/24/2023 3:49 AM EDT Narrative Resulting Agency Comment Spec In Lab Eufemia Copeland MD CHEMISTRY ORDERABL ES [facility] [place] [address] * Magnesium (06/24/2023 3:38 AM EDT) Magnesium 0.96 0.69 - 1.07 mmol/L [facility] Blood 06/24/2023 3:38 AM EDT 06/24/2023 3:49 AM EDT Narrative Resulting Agency Comment Spec In Lab Eufemia Copeland MD CHEMISTRY ORDERABL ES Performing Organization Address [facility]/ZIP Co de Phone Number [facility] [place] [address] * Heparin (unfractionated) Level (06/23/2023 9:24 PM EDT) UF Heparin 0.51 IU/mL [facility] S Performing Organization Address [facility]/ZIP Co de Phone Number [facility] [place] [address] * Duplex Study Visceral Arteries, Comp (06/23/2023 3:36 PM EDT) VB Text Report Department: Vascular Surgery Lab Patient: [id number] (LOIDA ROQUE) CPT: [id number] Referring Physician: AILYN IRVIN ?? Phone: Indications: [...] 3:01 PM EDT) UF Heparin 0.90 IU/mL [facility] [...] S Performing Organization Address [facility] Co de Phone Number [facility] [place] [address] * EKG 12 Lead (06/23/2023 9:54 AM EDT) Ventricular rate 48 BPM MUSE SYSTEM Atrial Rate 48 BPM MUSE SYSTEM P-R Interval 192 ms MUSE SYSTEM QRS Duration 92 ms MUSE SYSTEM Q-T Interval 462 ms MUSE SYSTEM QTC Calculated (Bezet) 412 ms MUSE SYSTEM Calculated P At[place] 21 degrees MUSE SYSTEM Calculated R [place] 20 degrees MUSE SYSTEM Calculated T [place] 16 degrees MUSE SYSTEM INTERPRETATION Sinus bradycardia Nonspecific ST and T wave abnormality Abnormal ECG When compared with ECG of 22-JUN-2023 11:13, Criteria for Septal infarct are no longer Present No significant change was found Confirmed by MD [place], Gus ([id number]) on 06/23/2023 12:59:50 PM MUSE SYSTEM 06/23/2023 9:54 AM EDT 06/23/2023 12:59 PM EDT Ailyn Irvin MD ECG ORDERABLES Performing Organization Address [facility] Co de Phone Number MUSE SYSTEM * Differential, Automated (06/23/2023 4:12 AM EDT) Neutrophil % 52.8 % [facility] Neutrophil Absolute 4.30 1.70 - 6.10 x10(3)/[facility] Lymph % 33.9 % [facility] Lymphocytes Abs 2.8 0.9 - 3.2 x10(3)/[facility] Monocyte % 8.3 % [facility] Monocyte Abs 0.7 0.3 - 0.9 x10(3)/[facility] Eos % 3.9 % [facility] Eosinophils Abs 0.3 0.0 - 0.4 x10(3)/[facility] Basophil % 0.7 % [facility] Baso Absolute 0.1 0.0 - 0.1 x10(3)/[facility] Immature Gran % 0.40 % [facility] Comment: Immature granulocytes(IG's)percentage and absolute count will include metamyelocytes, myelocytes, and promyelocytes. Blood smears from CBCs yielding IG's will be scanned manually for concordance. If this scan disagrees with the automated IG or if promyelocytes are noted, a manual differential will be performed. Immature Gran Absolute 0.03 0.00 - 0.04 x10(3)/[facility] Blood 06/23/2023 4:12 AM EDT 06/23/2023 4:38 AM EDT Narrative Resulting Agency Comment Spec In Lab Terrence Keating MD HEMATOLOGY ORDERABLE S [facility] [place] [address] * Hemogram (06/23/2023 4:12 AM EDT) White Blood Cell 8.2 4.0 - 9.5 x10(3)/[facility] Red Blood Cell 4.59 4.00 - 5.21 x10(6)/[facility] Hemoglobin 14.3 11.7 - 15.5 g/dL [facility] Hematocrit 43.1 35.7 - 45.8 % [facility] Mean Cell Volume 93.9 82.6 - 94.4 fL [facility] Mean Cell Hemoglobin 31.2 27.1 - 32.0 pg [facility] Mean Cell Hemoglobin Concentration 33.2 31.7 - 35.0 g/dL [facility] Platelet 233 145 - 357 x10(3)/[facility] RDW Standard Deviation 44.2 37.0 - 46.0 fL [facility] RDW coefficient of variation 13.0 11.5 - 14.1 % [facility] Mean Platelet Volume 11.3 7.6 - 12.9 fL [facility] NRBC% auto 0.0 % [facility] NRBC Absolute 0.000 0.000 - 0.000 x10(3)/[facility] Blood 06/23/2023 4:12 AM EDT 06/23/2023 4:38 AM EDT Narrative Resulting Agency Comment Spec In Lab Terrence Keating MD HEMATOLOGY ORDERABLE S [facility] [place] [address] * (ABNORMAL) Heparin (unfractionated) Level (06/23/2023 4:12 AM EDT) UF Heparin 1.95(Crit ical) IU/mL [facility] S [facility] [place] [address] * (ABNORMAL) Basic Metabolic Panel (non-fasting) (06/23/2023 4:12 AM EDT) Glucose 87 65 - 199 mg/dL [facility] Comment:Diabetes: >=200 mg/d L plus symptoms Blood Urea Nitrogen 23(H) 8 - 18 mg/dL [facility] Carbon Dioxide 22 22 - 31 mmol/L [facility] Anion Gap 12 5 - 15 mmol/L [facility] Calcium 9.3 8.5 - 10.5 mg/dL [facility] Est Glomerular Filtration Rate 61 >=60 mL/min/1. 73 m?? [facility] [...] MD CHEMISTRY ORDERABL ES Performing Organization Address [facility] Co de Phone Number [facility] [place] [address] * Phosphorus (06/23/2023 4:12 AM EDT) Phosphorus 4.5 2.5 - 4.5 mg/dL [facility] Blood 06/23/2023 4:12 AM EDT 06/23/2023 4:38 AM EDT Narrative Resulting Agency Comment Spec In Lab Eufemia Copeland MD CHEMISTRY ORDERABL ES Performing Organization Address [facility] Co de Phone Number [facility] [place] [address] * Magnesium (06/23/2023 4:12 AM EDT) Magnesium 1.03 0.69 - 1.07 mmol/L [facility] Blood 06/23/2023 4:12 AM EDT 06/23/2023 4:38 AM EDT Narrative Resulting Agency Comment Spec In Lab Eufemia Copeland MD CHEMISTRY ORDERABL ES Performing Organization Address [facility] Co de Phone Number [facility] [place] [address] * ECHO LMTD W CONTRAST W LMTD SPEC DOPP COLOR DOPP (06/22/2023 4:25 PM EDT) Anatomical Region Laterality Modality Cardiac Other 06/22/2023 2:49 PM EDT Narrative 06/22/2023 4:42 PM EDT [address] [place] [address] ? Echocardiogram Report Name: LOIDA ROQUE ?Study Date: 06/22/2023 02:49 PM ?Patient Location: [id number] ??HR: 57 : 1970 ?Height: 162 cm ? Account: [id number] Age: 53 yrs ?Weight: 102 kg Gender: [...] slight decrease in LV systolic function. Procedure Complete-32141. Satisfactory quality. There is normal sinus rhythm. [...] Note Jose Gallegos MD - 06/22/2023 [address] [place] [address] Echocardiogram Report Name: LOIDA ROQUE Study Date: 06/22/2023 02:49 PM Patient Location: [place] [id number] A HR:57 : 1970 Height: 162 cmAccount: [id number] Age: 53 yrs Weight: 102 kg Gender: [...] a slightdecrease in LV systolic function. Procedure Complete-75214. Satisfactory quality. There is normal sinus rhythm. [...] * (ABNORMAL) Troponin (06/22/2023 2:38 PM EDT) [facility] Troponin-T, High Sensitivity 22(H) <=14 ng/L [facility] [...] troponin value can be found in the [facility] Test Catalog Troponin - [facility] Test Catalog Reference: Fourth [place] Definition of Myocardial Infarction. Journal of the [place] [employer] 2018;72:3252-4756 Blood 06/22/2023 2:38 PM EDT 06/22/2023 2:50 PM EDT Narrative Resulting Agency Comment Spec In Lab Ailyn Irvin MD CHEMISTRY ORDERABLES [facility] [place] [address] * Duplex for DVT, Arm, Unilat (06/22/2023 2:24 PM EDT) VB Text Report Department: Vascular Surgery Lab Patient: [id number] (LOIDA ROQUE) CPT: [id number] Referring Physician: AILYN IRVIN ?? Phone: Indications: [...] care nurse that requested your imaging first. Ailyn Irvin MD IMG DX ORDERABLES * (ABNORMAL) Troponin (06/22/2023 11:24 AM EDT) [facility] Troponin-T, High Sensitivity 22(H) <=14 ng/L [facility] [...] troponin value can be found in the [facility] Test Catalog Troponin - [facility] Test Catalog Reference: Fourth [place] Definition of Myocardial Infarction. Journal of the [place] [employer] 2018;72:6391-3608 Blood 06/22/2023 11:2 4 AM EDT 06/22/2023 11:44 AM EDT Narrative Resulting Agency Comment Spec In Lab Ailyn Irvin MD CHEMISTRY ORDERABLES [facility] [place] [address] * EKG 12 Lead (06/22/2023 11:13 AM EDT) Ventricular rate 63 BPM MUSE SYSTEM Atrial Rate 63 BPM MUSE SYSTEM P-R Interval 162 ms MUSE SYSTEM QRS Duration 86 ms MUSE SYSTEM Q-T Interval 382 ms MUSE SYSTEM QTC Calculated (Bezet) 390 ms MUSE SYSTEM Calculated P [place] 24 degrees MUSE SYSTEM Calculated R [place] 32 degrees MUSE SYSTEM Calculated T [place] -2 degrees MUSE SYSTEM INTERPRETATION Normal sinus rhythm Septal infarct (cited on or before 22-JUN-2023) Possible Lateral infarct , age undetermined ST & T wave abnormality, consider inferolateral ischemia Abnormal ECG When compared with ECG of 22-JUN-2023 10:55, No significant change was found Confirmed by MD Angelo Danette ([id number]) on 06/22/2023 3:56:31 PM MUSE SYSTEM 06/22/2023 11:1 3 AM EDT 06/22/2023 3:56 PM EDT Ailyn Irvin MD ECG ORDERABLES Performing Organization Address [facility] de Phone Number MUSE SYSTEM * EKG 12 Lead (06/22/2023 10:55 AM EDT) Ventricular rate 56 BPM MUSE SYSTEM Atrial Rate 56 BPM MUSE SYSTEM P-R Interval 168 ms MUSE SYSTEM QRS Duration 88 ms MUSE SYSTEM Q-T Interval 426 ms MUSE SYSTEM QTC Calculated (Bezet) 411 ms MUSE SYSTEM Calculated P [place] 22 degrees MUSE SYSTEM Calculated R [place] 20 degrees MUSE SYSTEM Calculated T [place] 10 degrees MUSE SYSTEM INTERPRETATION Sinus bradycardia Septal infarct , age undetermined ST & T wave abnormality, consider inferolateral ischemia Abnormal ECG When compared with ECG of 21-JUN-2023 10:06, Septal infarct is now Present Confirmed by MD Angelo Danette ([id number]) on 06/22/2023 3:55:53 PM MUSE SYSTEM 06/22/2023 10:5 5 AM EDT 06/22/2023 3:55 PM EDT Ailyn Irvin MD ECG ORDERABLES Performing Organization Address [facility] Phone Number MUSE SYSTEM * Differential, Automated (06/22/2023 4:34 AM EDT) Neutrophil % 54.4 % [facility] Neutrophil Absolute 4.07 1.70 - 6.10 x10(3)/[facility] LAB[facility] Lymph % 30.6 % [facility] Lymphocytes Abs 2.3 0.9 - 3.2 x10(3)/[facility] LAB[facility]ORY Monocyte % 9.9 % [facility] Monocyte Abs 0.7 0.3 - 0.9 x10(3)/[facility] LABOR[facility]ORY Eos % 4.3 % [facility] Eosinophils Abs 0.3 0.0 - 0.4 x10(3)/[facility] Basophil % 0.7 % [facility] Baso Absolute 0.0 0.0 - 0.1 x10(3)/[facility] LAB[facility]ORY Immature Gran % 0.10 % [facility] Comment: Immature granulocytes(IG's)percentage and absolute count will include metamyelocytes, myelocytes, and promyelocytes. Blood smears from CBCs yielding IG's will be scanned manually for concordance. If this scan disagrees with the automated IG or if promyelocytes are noted, a manual differential will be performed. Immature Gran Absolute 0.01 0.00 - 0.04 x10(3)/[facility] Blood 06/22/2023 4:34 AM EDT 06/22/2023 4:42 AM EDT Narrative Resulting Agency Comment Spec In Lab Terrence Keating MD HEMATOLOGY ORDERABLE S [facility] [place] [address] * (ABNORMAL) Hemogram (06/22/2023 4:34 AM EDT) White Blood Cell 7.5 4.0 - 9.5 x10(3)/mc L [facility] Red Blood Cell 4.04 4.00 - 5.21 x10(6)/mc L [facility] Hemoglobin 12.8 11.7 - 15.5 g/dL [facility] Hematocrit 39.1 35.7 - 45.8 % [facility] Mean Cell Volume 96.8(H) 82.6 - 94.4 fL [facility] Mean Cell Hemoglobin 31.7 27.1 - 32.0 pg [facility] Mean Cell Hemoglobin Concentration 32.7 31.7 - 35.0 g/dL [facility] Platelet 225 145 - 357 x10(3)/mc L [facility] RDW Standard Deviation 45.9 37.0 - 46.0 [facility] LAB[facility]ATORY RDW coefficient of variation 13.0 11.5 - 14.1 % [facility] Mean Platelet Volume 10.6 7.6 - 12.9 [facility] LAB[facility]ORY NRBC% auto 0.0 % [facility] NRBC Absolute 0.000 0.000 - 0.000 x10(3)/mc L [facility] Blood 06/22/2023 4:34 AM EDT 06/22/2023 4:42 AM EDT Narrative Resulting Agency Comment Spec In Lab Terrence Keating MD HEMATOLOGY ORDERABLE S [facility] [place] [address] * (ABNORMAL) Basic Metabolic Panel (non-fasting) (06/22/2023 4:34 AM EDT) Glucose 94 65 - 199 mg/dL [facility] Comment:Diabetes: >=200 mg/d L plus symptoms Blood Urea Nitrogen 22(H) 8 - 18 mg/dL [facility] Carbon Dioxide 19(L) 22 - 31 mmol/L [facility] Anion Gap 17(H) 5 - 15 mmol/L [facility] Calcium 9.4 8.5 - 10.5 mg/dL [facility] Est Glomerular Filtration Rate 54(L) >=60 mL/min/1. 73 m?? [facility] [...] ES [facility] [place] [address] * (ABNORMAL) Phosphorus (06/22/2023 4:34 AM EDT) Phosphorus 4.9(H) 2.5 - 4.5 mg/dL [facility] Blood 06/22/2023 4:34 AM EDT 06/22/2023 4:42 AM EDT Narrative Resulting Agency Comment Spec In Lab Eufemia Copeland MD CHEMISTRY ORDERABL ES [facility] [place] [address] * Magnesium (06/22/2023 4:34 AM EDT) Magnesium 1.02 0.69 - 1.07 mmol/L [facility] Blood 06/22/2023 4:34 AM EDT 06/22/2023 4:42 AM EDT Narrative Resulting Agency Comment Spec In Lab Eufemia Copeland MD CHEMISTRY ORDERABL ES [facility] [place] [address] * CT Abdomen & Pelvis w Contrast [...] care nurse that requested your imaging first. Eufemia Copeland MD IMG CT ORDERABLES * EKG 12 Lead (06/21/2023 10:06 AM EDT) Pathologist [facility] Ventricular rate 51 BPM MUSE SYSTEM Atrial Rate 51 BPM MUSE SYSTEM P-R Interval 176 ms MUSE SYSTEM QRS Duration 92 ms MUSE SYSTEM Q-T Interval 450 ms MUSE SYSTEM QTC Calculated (Bezet) 414 ms MUSE SYSTEM Calculated P [place] 17 degrees MUSE SYSTEM Calculated R [place] 35 degrees MUSE SYSTEM Calculated T [place] 13 degrees MUSE SYSTEM INTERPRETATION Sinus bradycardia [...] * (ABNORMAL) Troponin (06/21/2023 9:45 AM EDT) Pathologist [facility] Troponin-T, High Sensitivity 22(H) <=14 ng/L [facility] [...] troponin value can be found in the [facility] Test Catalog Troponin - [facility] Test Catalog Reference: Fourth [place] Definition of Myocardial Infarction. Journal of the [place] [employer] 2018;72:5730-1946 Blood 06/21/2023 9:45 AM EDT 06/21/2023 10:08 AM EDT Narrative Resulting Agency Comment Spec In Lab Eufemia Copeland MD CHEMISTRY ORDERABL ES Performing Organization Address [facility]/ZIP Co de Phone Number [facility] [place] [address] * (ABNORMAL) pro-Brain Natriuretic Peptide (06/21/2023 5:58 AM EDT) NT-proBNP 1,370(H) <=124 pg/mL [facility] Blood Venous Draw / Unknown 06/21/2023 5:58 AM EDT 06/21/2023 7:28 AM EDT Narrative Resulting Agency Comment Spec In Lab Eufemia Copeland MD CHEMISTRY ORDERABL ES Performing Organization Address [facility]/ZIP Co de Phone Number [facility] [place] [address] * Potassium (06/21/2023 5:58 AM EDT) Potassium 4.0 3.5 - 5.0 mmol/L [facility] [...] ES [facility] [place] [address] * Differential, Automated (06/21/2023 3:25 AM EDT) Neutrophil % 54.0 % [facility] Neutrophil Absolute 5.02 1.70 - 6.10 x10(3)/[facility] LAB[facility] Lymph % 31.8 % [facility] Lymphocytes Abs 3.0 0.9 - 3.2 x10(3)/[facility] Monocyte % 8.9 % [facility] Monocyte Abs 0.8 0.3 - 0.9 x10(3)/[facility] Eos % 4.2 % [facility] Eosinophils Abs 0.4 0.0 - 0.4 x10(3)/[facility] Basophil % 0.8 % [facility] Baso Absolute 0.1 0.0 - 0.1 x10(3)/[facility] Immature Gran % 0.30 % [facility] Comment: Immature granulocytes(IG's)percentage and absolute count will include metamyelocytes, myelocytes, and promyelocytes. Blood smears from CBCs yielding IG's will be scanned manually for concordance. If this scan disagrees with the automated IG or if promyelocytes are noted, a manual differential will be performed. Immature Gran Absolute 0.03 0.00 - 0.04 x10(3)/[facility] Blood 06/21/2023 3:25 AM EDT 06/21/2023 3:45 AM EDT Narrative Resulting Agency Comment Spec In Lab Terrence Keating MD HEMATOLOGY ORDERABLE S [facility] [place] [address] * Hemogram (06/21/2023 3:25 AM EDT) White Blood Cell 9.3 4.0 - 9.5 x10(3)/[facility] LAB[facility] Red Blood Cell 4.74 4.00 - 5.21 x10(6)/[facility] Hemoglobin 14.9 11.7 - 15.5 g/dL [facility] Hematocrit 44.2 35.7 - 45.8 % [facility] Mean Cell Volume 93.2 82.6 - 94.4 fL [facility] Mean Cell Hemoglobin 31.4 27.1 - 32.0 pg [facility] Mean Cell Hemoglobin Concentration 33.7 31.7 - 35.0 g/dL [facility] Platelet 279 145 - 357 x10(3)/[facility] LAB[facility] RDW Standard Deviation 44.7 37.0 - 46.0 [facility] LABORATORY RDW coefficient of variation 13.1 11.5 - 14.1 % [facility] Mean Platelet Volume 11.1 7.6 - 12.9 fL [facility] NRBC% auto 0.0 % [facility] NRBC Absolute 0.000 0.000 - 0.000 x10(3)/[facility] Blood 06/21/2023 3:25 AM EDT 06/21/2023 3:45 AM EDT Narrative Resulting Agency Comment Spec In Lab Terrence Keating MD HEMATOLOGY ORDERABLE S [facility] [place] [address] * (ABNORMAL) Basic Metabolic Panel (non-fasting) (06/21/2023 3:25 AM EDT) Glucose 95 65 - 199 mg/dL [facility] Comment:Diabetes: >=200 mg/d L plus symptoms Blood Urea Nitrogen 27(H) 8 - 18 mg/dL [facility] Carbon Dioxide 26 22 - 31 mmol/L [facility] Anion Gap 12 5 - 15 mmol/L [facility] Calcium 9.7 8.5 - 10.5 mg/dL [facility] Est Glomerular Filtration Rate 59(L) >=60 mL/min/1. 73 m?? [facility] [...] MD CHEMISTRY ORDERABL ES Performing Organization Address [facility]/ZIP Co de Phone Number [facility] [place] [address] * (ABNORMAL) Phosphorus (06/21/2023 3:25 AM EDT) [facility] Phosphorus 5.1(H) 2.5 - 4.5 mg/dL [facility] Blood 06/21/2023 3:25 AM EDT 06/21/2023 3:45 AM EDT Narrative Resulting Agency Comment Spec In Lab Eufemia Copeland MD CHEMISTRY ORDERABL ES Performing Organization Address [facility] Co de Phone Number [facility] [place] [address] * Magnesium (06/21/2023 3:25 AM EDT) [facility] Magnesium 1.04 0.69 - 1.07 mmol/L [facility] Blood 06/21/2023 3:25 AM EDT 06/21/2023 3:45 AM EDT Narrative Resulting Agency Comment Spec In Lab Eufemia Copeland MD CHEMISTRY ORDERABL ES Performing Organization Address [facility] Co de Phone Number [facility] [place] [address] * (ABNORMAL) Differential, Automated (06/20/2023 3:32 AM EDT) [facility] Neutrophil % 52.5 % [facility] Neutrophil Absolute 5.28 1.70 - 6.10 x10(3)/mc L [facility] Lymph % 32.4 % [facility] Lymphocytes Abs 3.3(H) 0.9 - 3.2 x10(3)/mc L [facility] Monocyte % 9.7 % [facility] Monocyte Abs 1.0(H) 0.3 - 0.9 x10(3)/mc L [facility] Eos % 4.3 % [facility] Eosinophils Abs 0.4 0.0 - 0.4 x10(3)/[facility] Basophil % 0.7 % [facility] Baso Absolute 0.1 0.0 - 0.1 x10(3)/ L [facility] [...] Gran Absolute 0.04 0.00 - 0.04 x10(3)/[facility] Blood 06/20/2023 3:32 AM EDT 06/20/2023 3:47 AM EDT Narrative Resulting Agency Comment Spec In Lab Terrence Keating MD HEMATOLOGY ORDERABLE S [facility] [place] [address] * (ABNORMAL) Hemogram (06/20/2023 3:32 AM EDT) White Blood Cell 10.1(H) 4.0 - 9.5 x10(3)/ L [facility] Red Blood Cell 4.57 4.00 - 5.21 x10(6)/ L [facility] Hemoglobin 14.2 11.7 - 15.5 g/dL [facility] Hematocrit 41.5 35.7 - 45.8 % [facility] Mean Cell Volume 90.8 82.6 - 94.4 fL [facility] Mean Cell Hemoglobin 31.1 27.1 - 32.0 pg [facility] Mean Cell Hemoglobin Concentration 34.2 31.7 - 35.0 g/dL [facility] Platelet 253 145 - 357 x10(3)/mc L [facility] RDW Standard Deviation 43.7 37.0 - 46.0 fL [facility] RDW coefficient of variation 13.2 11.5 - 14.1 % [facility] Mean Platelet Volume 10.8 7.6 - 12.9 fL [facility] NRBC% auto 0.0 % [facility] NRBC Absolute 0.000 0.000 - 0.000 x10(3)/mc L [facility] Blood 06/20/2023 3:32 AM EDT 06/20/2023 3:47 AM EDT Narrative Resulting Agency Comment Spec In Lab Terrence Keating MD HEMATOLOGY ORDERABLE S [facility] [place] [address] * (ABNORMAL) Basic Metabolic Panel (non-fasting) (06/20/2023 3:32 AM EDT) Glucose 99 65 - 199 mg/dL [facility] Comment:Diabetes: >=200 mg/d L plus symptoms Blood Urea Nitrogen 26(H) 8 - 18 mg/dL [facility] Carbon Dioxide 22 22 - 31 mmol/L [facility] Anion Gap 13 5 - 15 mmol/L [facility] Calcium 9.4 8.5 - 10.5 mg/dL [facility] Est Glomerular Filtration Rate 58(L) >=60 mL/min/1. 73 m?? [facility] [...] MD CHEMISTRY ORDERABL ES Performing Organization Address [facility] Co de Phone Number [facility] [place] [address] * Phosphorus (06/20/2023 3:32 AM EDT) Phosphorus 4.3 2.5 - 4.5 mg/dL [facility] Blood 06/20/2023 3:32 AM EDT 06/20/2023 3:47 AM EDT Narrative Resulting Agency Comment Spec In Lab Eufemia Copeland MD CHEMISTRY ORDERABL ES Performing Organization Address City/[facility]/ZIP Co de Phone Number [facility] [place] [address] * Magnesium (06/20/2023 3:32 AM EDT) Magnesium 1.00 0.69 - 1.07 mmol/L [facility] Blood 06/20/2023 3:32 AM EDT 06/20/2023 3:47 AM EDT Narrative Resulting Agency Comment Spec In Lab Eufemia Copeland MD CHEMISTRY ORDERABL ES Performing Organization Address [facility]/ZIP Co de Phone Number [facility] [place] [address] * Phosphorus (06/19/2023 5:26 PM EDT) Pathologist [facility] Phosphorus 4.0 2.5 - 4.5 mg/dL [facility] Blood 06/19/2023 5:26 PM EDT 06/19/2023 5:32 PM EDT Narrative Resulting Agency Comment Spec In Lab Eufemia Copeland MD CHEMISTRY ORDERABL ES Performing Organization Address [facility] Co de Phone Number [facility] [place] [address] * Magnesium (06/19/2023 5:26 PM EDT) [facility] Magnesium 0.98 0.69 - 1.07 mmol/L [facility] Blood 06/19/2023 5:26 PM EDT 06/19/2023 5:32 PM EDT Narrative Resulting Agency Comment Spec In Lab Eufemia Copeland MD CHEMISTRY ORDERABL ES Performing Organization Address [facility] Co de Phone Number [facility] [place] [address] * (ABNORMAL) Basic Metabolic Panel (non-fasting) (06/19/2023 5:26 PM EDT) Pathologist [facility] Glucose 105 65 - 199 mg/dL [facility] Comment:Diabetes: >=200 mg/d L plus symptoms Blood Urea Nitrogen 21(H) 8 - 18 mg/dL [facility] Carbon Dioxide 22 22 - 31 mmol/L [facility] Anion Gap 14 5 - 15 mmol/L [facility] Calcium 9.5 8.5 - 10.5 mg/dL [facility] Est Glomerular Filtration Rate 62 >=60 mL/min/1. 73 m?? [facility] [...] ES [facility] [place] [address] * EKG 12 Lead (06/19/2023 4:24 AM EDT) Ventricular rate 66 BPM MUSE SYSTEM Atrial Rate 66 BPM MUSE SYSTEM P-R Interval 188 ms MUSE SYSTEM QRS Duration 92 ms MUSE SYSTEM Q-T Interval 484 ms MUSE SYSTEM QTC Calculated (Bezet) 507 ms MUSE SYSTEM Calculated P [place] 32 degrees MUSE SYSTEM Calculated R [place] 22 degrees MUSE SYSTEM Calculated T [place] 47 degrees MUSE SYSTEM INTERPRETATION Normal sinus [...] EDT) Glucose 101 65 - 199 mg/dL [facility] Comment:Diabetes: >=200 mg/d L plus symptoms Blood Urea Nitrogen 24(H) 8 - 18 mg/dL [facility] Carbon Dioxide Not Perf 22 - 31 [facility] Comment:Add-on request. Samp le too old to perform test. Anion Gap Unable to Calculate 5 - 15 mmol/L [facility] Calcium 9.4 8.5 - 10.5 mg/dL [facility] Est Glomerular Filtration Rate 64 >=60 mL/min/1 .73 m?? [facility] [...] ES [facility] [place] [address] * Differential, Automated (06/19/2023 3:22 AM EDT) Neutrophil % 54.0 % [facility] Neutrophil Absolute 5.08 1.70 - 6.10 x10(3)/[facility] Lymph % 30.7 % [facility] Lymphocytes Abs 2.9 0.9 - 3.2 x10(3)/[facility] Monocyte % 10.0 % [facility] Monocyte Abs 0.9 0.3 - 0.9 x10(3)/[facility] Eos % 4.5 % [facility] Eosinophils Abs 0.4 0.0 - 0.4 x10(3)/[facility] Basophil % 0.6 % [facility] Baso Absolute 0.1 0.0 - 0.1 x10(3)/[facility] Immature Gran % 0.20 % [facility] Comment: Immature granulocytes(IG's)percentage and absolute count will include metamyelocytes, myelocytes, and promyelocytes. Blood smears from CBCs yielding IG's will be scanned manually for concordance. If this scan disagrees with the automated IG or if promyelocytes are noted, a manual differential will be performed. Immature Gran Absolute 0.02 0.00 - 0.04 x10(3)/[facility] Blood 06/19/2023 3:22 AM EDT 06/19/2023 3:47 AM EDT Narrative Resulting Agency Comment Spec In Lab Terrence Keating MD HEMATOLOGY ORDERABLE S [facility] [place] [address] * Hemogram (06/19/2023 3:22 AM EDT) [facility] White Blood Cell 9.4 4.0 - 9.5 x10(3)/[facility] Red Blood Cell 4.48 4.00 - 5.21 x10(6)/[facility] Hemoglobin 13.9 11.7 - 15.5 g/dL [facility] Hematocrit 41.7 35.7 - 45.8 % [facility] Mean Cell Volume 93.1 82.6 - 94.4 fL [facility] Mean Cell Hemoglobin 31.0 27.1 - 32.0 pg [facility] Mean Cell Hemoglobin Concentration 33.3 31.7 - 35.0 g/dL [facility] Platelet 244 145 - 357 x10(3)/[facility] RDW Standard Deviation 44.2 37.0 - 46.0 [facility] RDW coefficient of variation 12.9 11.5 - 14.1 % [facility] Mean Platelet Volume 10.9 7.6 - 12.9 [facility] NRBC% auto 0.0 % [facility] NRBC Absolute 0.000 0.000 - 0.000 x10(3)/[facility] Blood 06/19/2023 3:22 AM EDT 06/19/2023 3:47 AM EDT Narrative Resulting Agency Comment Spec In Lab Terrence Keating MD HEMATOLOGY ORDERABLE S [facility] [place] [address] * Phosphorus (06/19/2023 3:22 AM EDT) Phosphorus 4.1 2.5 - 4.5 mg/dL [facility] Blood 06/19/2023 3:22 AM EDT 06/19/2023 3:47 AM EDT Narrative Resulting Agency Comment Spec In Lab Eufemia Copeland MD CHEMISTRY ORDERABL ES Performing Organization Address [facility]/ZIP Co de Phone Number [facility] [place] [address] * Magnesium (06/19/2023 3:22 AM EDT) Pathologist [facility] Magnesium 1.00 0.69 - 1.07 mmol/L [facility] Blood 06/19/2023 3:22 AM EDT 06/19/2023 3:47 AM EDT Narrative Resulting Agency Comment Spec In Lab Eufemia Copeland MD CHEMISTRY ORDERABL ES Performing Organization Address [facility] Co de Phone Number [facility] [place] [address] * (ABNORMAL) Basic Metabolic Panel (non-fasting) (06/18/2023 5:17 PM EDT) Pathologist [facility] Glucose 115 65 - 199 mg/dL [facility] Comment:Diabetes: >=200 mg/d L plus symptoms Blood Urea Nitrogen 22(H) 8 - 18 mg/dL [facility] Carbon Dioxide 22 22 - 31 mmol/L [facility] Anion Gap 14 5 - 15 mmol/L [facility] Calcium 9.6 8.5 - 10.5 mg/dL [facility] Est Glomerular Filtration Rate 58(L) >=60 mL/min/1. 73 m?? [facility] [...] ES [facility] [place] [address] * (ABNORMAL) Basic Metabolic Panel (non-fasting) (06/18/2023 4:19 AM EDT) Glucose 96 65 - 199 mg/dL [facility] Comment:Diabetes: >=200 mg/d L plus symptoms Blood Urea Nitrogen 22(H) 8 - 18 mg/dL [facility] Carbon Dioxide Not Perf - [facility] Comment:Add-on request. Flaca rodriguez too old to perform test. Anion Gap Unable to Calculate 5 - 15 mmol/L [facility] Calcium 9.5 8.5 - 10.5 mg/dL [facility] Est Glomerular Filtration Rate 73 >=60 mL/min/1 .73 m?? [facility] [...] ES [facility] [place] [address] * Differential, Automated (06/18/2023 4:19 AM EDT) Neutrophil % 54.1 % [facility] Neutrophil Absolute 4.52 1.70 - 6.10 x10(3)/[facility] Lymph % 31.0 % [facility] Lymphocytes Abs 2.6 0.9 - 3.2 x10(3)/[facility] Monocyte % 9.2 % [facility] Monocyte Abs 0.8 0.3 - 0.9 x10(3)/[facility] Eos % 4.9 % [facility] Eosinophils Abs 0.4 0.0 - 0.4 x10(3)/[facility] Basophil % 0.6 % [facility] Baso Absolute 0.0 0.0 - 0.1 x10(3)/[facility] Immature Gran % 0.20 % [facility] Comment: Immature granulocytes(IG's)percentage and absolute count will include metamyelocytes, myelocytes, and promyelocytes. Blood smears from CBCs yielding IG's will be scanned manually for concordance. If this scan disagrees with the automated IG or if promyelocytes are noted, a manual differential will be performed. Immature Gran Absolute 0.02 0.00 - 0.04 x10(3)/[facility] Blood 06/18/2023 4:19 AM EDT 06/18/2023 4:40 AM EDT Narrative Resulting Agency Comment Spec In Lab Terrence Keating MD HEMATOLOGY ORDERABLE S Performing Organization Address City/State/[facility] Co de Phone Number [facility] [place] [address] * Hemogram (06/18/2023 4:19 AM EDT) White Blood Cell 8.4 4.0 - 9.5 x10(3)/[facility] Red Blood Cell 4.70 4.00 - 5.21 x10(6)/[facility] Hemoglobin 14.5 11.7 - 15.5 g/dL [facility] Hematocrit 42.8 35.7 - 45.8 % [facility] Mean Cell Volume 91.1 82.6 - 94.4 fL [facility] Mean Cell Hemoglobin 30.9 27.1 - 32.0 pg [facility] Mean Cell Hemoglobin Concentration 33.9 31.7 - 35.0 g/dL [facility] Platelet 258 145 - 357 x10(3)/[facility] RDW Standard Deviation 43.6 37.0 - 46.0 fL [facility] RDW coefficient of variation 13.0 11.5 - 14.1 % [facility] Mean Platelet Volume 10.7 7.6 - 12.9 [facility] NRBC% auto 0.0 % [facility] NRBC Absolute 0.000 0.000 - 0.000 x10(3)/mcL [facility] Blood 06/18/2023 4:19 AM EDT 06/18/2023 4:40 AM EDT Narrative Resulting Agency Comment Spec In Lab Terrence Keating MD HEMATOLOGY ORDERABLE S Performing Organization Address City/[facility]/ZIP Co de Phone Number [facility] [place] [address] * Phosphorus (06/18/2023 4:19 AM EDT) Phosphorus 3.7 2.5 - 4.5 mg/dL [facility] Blood 06/18/2023 4:19 AM EDT 06/18/2023 4:40 AM EDT Narrative Resulting Agency Comment Spec In Lab Eufemia Copeland MD CHEMISTRY ORDERABL ES Performing Organization Address [facility] Co de Phone Number [facility] [place] [address] * Magnesium (06/18/2023 4:19 AM EDT) Magnesium 1.02 0.69 - 1.07 mmol/L [facility] Blood 06/18/2023 4:19 AM EDT 06/18/2023 4:40 AM EDT Narrative Resulting Agency Comment Spec In Lab Eufemia Copeland MD CHEMISTRY ORDERABL ES Performing Organization Address [facility] Co de Phone Number [facility] [place] [address] * Phosphorus (06/17/2023 2:26 PM EDT) Phosphorus 2.8 2.5 - 4.5 mg/dL [facility] Blood 06/17/2023 2:26 PM EDT 06/17/2023 2:36 PM EDT Narrative Resulting Agency Comment Spec In Lab Eufemia Copeland MD CHEMISTRY ORDERABL ES Performing Organization Address [facility]/ZIP Co de Phone Number [facility] [place] [address] * Magnesium (06/17/2023 2:26 PM EDT) Magnesium 1.01 0.69 - 1.07 mmol/L [facility] Blood 06/17/2023 2:26 PM EDT 06/17/2023 2:36 PM EDT Narrative Resulting Agency Comment Spec In Lab Eufemia Copeland MD CHEMISTRY ORDERABL ES Performing Organization Address [facility]/ZIP Co de Phone Number [facility] [place] [address] * (ABNORMAL) Basic Metabolic Panel (non-fasting) (06/17/2023 2:26 PM EDT) Glucose 103 65 - 199 mg/dL [facility] Comment:Diabetes: >=200 mg/d L plus symptoms Blood Urea Nitrogen 21(H) 8 - 18 mg/dL [facility] Carbon Dioxide 24 22 - 31 mmol/L [facility] Anion Gap 14 5 - 15 mmol/L [facility] Calcium 9.6 8.5 - 10.5 mg/dL [facility] Est Glomerular Filtration Rate 62 >=60 mL/min/1. 73 m?? [facility] [...] ES [facility] [place] [address] * XR Abdomen Flat & Upright (06/17/2023 [...] CLINICAL HISTORY: patient with foul odor from [facility]. hx hysterectomy, LLQ tenderness, constipation [...] CLINICAL HISTORY: patient with foul odor from [facility]. hx hysterectomy, LLQ tenderness, constipation [...] care nurse that requested your imaging first. Eufemia Copeland MD IMG DX ORDERABLES * (ABNORMAL) Basic Metabolic Panel (non-fasting) (06/17/2023 5:01 AM EDT) Glucose 100 65 - 199 mg/dL [facility] Comment:Diabetes: >=200 mg/d L plus symptoms Blood Urea Nitrogen 24(H) 8 - 18 mg/dL [facility] Carbon Dioxide 24 22 - 31 mmol/L [facility] Anion Gap 12 5 - 15 mmol/L [facility] Calcium 9.5 8.5 - 10.5 mg/dL [facility] Est Glomerular Filtration Rate 65 >=60 mL/min/1. 73 m?? [facility] [...] ORDERABLES [facility] [place] [address] * Differential, Automated (06/17/2023 1:11 AM EDT) Neutrophil % 54.5 % [facility] Neutrophil Absolute 5.20 1.70 - 6.10 x10(3)/mcL [facility] Lymph % 31.4 % [facility] Lymphocytes Abs 3.0 0.9 - 3.2 x10(3)/[facility] Monocyte % 9.8 % [facility] Monocyte Abs 0.9 0.3 - 0.9 x10(3)/[facility] Eos % 3.4 % [facility] Eosinophils Abs 0.3 0.0 - 0.4 x10(3)/[facility] Basophil % 0.5 % [facility] Baso Absolute 0.0 0.0 - 0.1 x10(3)/[facility] Immature Gran % 0.40 % [facility] Comment: Immature granulocytes(IG's)percentage and absolute count will include metamyelocytes, myelocytes, and promyelocytes. Blood smears from CBCs yielding IG's will be scanned manually for concordance. If this scan disagrees with the automated IG or if promyelocytes are noted, a manual differential will be performed. Immature Gran Absolute 0.04 0.00 - 0.04 x10(3)/[facility] Blood 06/17/2023 1:11 AM EDT 06/17/2023 1:16 AM EDT Narrative Resulting Agency Comment Spec In Lab Terrence Keating MD HEMATOLOGY ORDERABLE S [facility] [place] [address] * Hemogram (06/17/2023 1:11 AM EDT) White Blood Cell 9.5 4.0 - 9.5 x10(3)/[facility] Red Blood Cell 4.60 4.00 - 5.21 x10(6)/[facility] Hemoglobin 14.2 11.7 - 15.5 g/dL [facility] Hematocrit 43.0 35.7 - 45.8 % [facility] Mean Cell Volume 93.5 82.6 - 94.4 fL [facility] Mean Cell Hemoglobin 30.9 27.1 - 32.0 pg [facility] Mean Cell Hemoglobin Concentration 33.0 31.7 - 35.0 g/dL [facility] Platelet 256 145 - 357 x10(3)/[facility] RDW Standard Deviation 45.0 37.0 - 46.0 fL [facility] RDW coefficient of variation 13.2 11.5 - 14.1 % [facility] Mean Platelet Volume 10.9 7.6 - 12.9 fL [facility] NRBC% auto 0.0 % [facility] NRBC Absolute 0.000 0.000 - 0.000 x10(3)/[facility] Blood 06/17/2023 1:11 AM EDT 06/17/2023 1:16 AM EDT Narrative Resulting Agency Comment Spec In Lab Terrence Keating MD HEMATOLOGY ORDERABLE S Performing Organization Address City/[facility]/ZIP Co de Phone Number [facility] [place] [address] * Magnesium (06/17/2023 1:11 AM EDT) Magnesium 0.96 0.69 - 1.07 mmol/L [facility] Blood 06/17/2023 1:11 AM EDT 06/17/2023 1:16 AM EDT Narrative Resulting Agency Comment Spec In Lab Eufemia Copeland MD CHEMISTRY ORDERABL ES Performing Organization Address City/[facility]/ZIP Co de Phone Number [facility] [place] [address] * (ABNORMAL) Basic Metabolic Panel (non-fasting) (06/17/2023 1:11 AM EDT) Glucose 102 65 - 199 mg/dL [facility] Comment:Diabetes: >=200 mg/d L plus symptoms Blood Urea Nitrogen 24(H) 8 - 18 mg/dL [facility] Carbon Dioxide 24 22 - 31 mmol/L [facility] Anion Gap 13 5 - 15 mmol/L [facility] Calcium 9.2 8.5 - 10.5 mg/dL [facility] Est Glomerular Filtration Rate 61 >=60 mL/min/1. 73 m?? [facility] [...] ORDERABLES [facility] [place] [address] * (ABNORMAL) Basic Metabolic Panel (non-fasting) (06/16/2023 8:28 PM EDT) Pathologist [facility] Glucose 111 65 - 199 mg/dL [facility] Comment:Diabetes: >=200 mg/d L plus symptoms Blood Urea Nitrogen 23(H) 8 - 18 mg/dL [facility] Carbon Dioxide 26 22 - 31 mmol/L [facility] Anion Gap 12 5 - 15 mmol/L [facility] Calcium 9.3 8.5 - 10.5 mg/dL [facility] Est Glomerular Filtration Rate 53(L) >=60 mL/min/1. 73 m?? [facility] [...] ES [facility] [place] [address] * (ABNORMAL) Basic Metabolic Panel (non-fasting) (06/16/2023 2:29 PM EDT) Glucose 175 65 - 199 mg/dL [facility] Comment:Diabetes: >=200 mg/d L plus symptoms Blood Urea Nitrogen 25(H) 8 - 18 mg/dL [facility] Carbon Dioxide 26 22 - 31 mmol/L [facility] Anion Gap 13 5 - 15 mmol/L [facility] Calcium 9.3 8.5 - 10.5 mg/dL [facility] Est Glomerular Filtration Rate 50(L) >=60 mL/min/1. 73 m?? [facility] [...] ES [facility] [place] [address] * (ABNORMAL) Basic Metabolic Panel (non-fasting) (06/16/2023 9:01 AM EDT) Glucose 148 65 - 199 mg/dL [facility] Comment:Diabetes: >=200 mg/d L plus symptoms Blood Urea Nitrogen 27(H) 8 - 18 mg/dL [facility] Creatinine 1.27(H) 0.70 - 1.20 mg/dL [facility] Sodium 136 135 - 145 mmol/L [facility] Potassium 2.9(Criti edy) 3.5 - 5.0 mmol/L [facility] Comment: called by tmp /read back by (Malia Mcintyre)/ 06/16/23 @128 Please note: ??Patients with WBC >100,000 may have falsely elevated Potassium levels. ??For accurate Potassium quantification in these patients send serum separator tube (gold top) for subsequent determinations. ??Contact the Clinical Chemistry Laboratory if there are any questions. Chloride 91(L) 98 - 107 mmol/L [facility] Carbon Dioxide 32(H) 22 - 31 mmol/L [facility] Anion Gap 13 5 - 15 mmol/L [facility] Calcium 9.7 8.5 - 10.5 mg/dL [facility] Est Glomerular Filtration Rate 50(L) >=60 mL/min/1. 73 m?? [facility] [...] MD CHEMISTRY ORDERABL ES Performing Organization Address City/[facility]/ZIP Co de Phone Number [facility] [place] [address] * (ABNORMAL) Magnesium (06/16/2023 3:30 AM EDT) Pathologist [facility] Magnesium 1.09(H) 0.69 - 1.07 mmol/L [facility] Blood Venous Draw / Unknown 06/16/2023 3:30 AM EDT 06/16/2023 3:38 AM EDT Narrative Resulting Agency Comment Spec In Lab Eufemia Copeland MD CHEMISTRY ORDERABL ES Performing Organization Address City/[facility] Co de Phone Number [facility] [place] [address] * (ABNORMAL) Differential, Automated (06/16/2023 3:30 AM EDT) [facility] Neutrophil % 50.4 % [facility] Neutrophil Absolute 4.15 1.70 - 6.10 x10(3)/mc L [facility] Lymph % 33.7 % [facility] Lymphocytes Abs 2.8 0.9 - 3.2 x10(3)/mc L [facility] Monocyte % 11.8 % [facility] Monocyte Abs 1.0(H) 0.3 - 0.9 x10(3)/mc L [facility] Eos % 3.3 % [facility] Eosinophils Abs 0.3 0.0 - 0.4 x10(3)/mc L [facility] Basophil % 0.6 % [facility] Baso Absolute 0.0 0.0 - 0.1 x10(3)/mc L [facility] Immature Gran % 0.20 % [facility] [...] Absolute 0.02 0.00 - 0.04 x10(3)/mc L [facility] Blood 06/16/2023 3:30 AM EDT 06/16/2023 3:37 AM EDT Narrative Resulting Agency Comment Spec In Lab Terrence Keating MD HEMATOLOGY ORDERABLE S [facility] [place] [address] * Hemogram (06/16/2023 3:30 AM EDT) White Blood Cell 8.2 4.0 - 9.5 x10(3)/[facility] Red Blood Cell 4.69 4.00 - 5.21 x10(6)/[facility] Hemoglobin 14.5 11.7 - 15.5 g/dL [facility] Hematocrit 42.7 35.7 - 45.8 % [facility] Mean Cell Volume 91.0 82.6 - 94.4 fL [facility] Mean Cell Hemoglobin 30.9 27.1 - 32.0 pg [facility] Mean Cell Hemoglobin Concentration 34.0 31.7 - 35.0 g/dL [facility] Platelet 260 145 - 357 x10(3)/[facility] RDW Standard Deviation 43.5 37.0 - 46.0 fL [facility] RDW coefficient of variation 13.0 11.5 - 14.1 % [facility] Mean Platelet Volume 11.1 7.6 - 12.9 fL [facility] NRBC% auto 0.0 % [facility] NRBC Absolute 0.000 0.000 - 0.000 x10(3)/mcL [facility] Blood 06/16/2023 3:30 AM EDT 06/16/2023 3:37 AM EDT Narrative Resulting Agency Comment Spec In Lab Terrence Keating MD HEMATOLOGY ORDERABLE S [facility] [place] [address] * (ABNORMAL) Basic Metabolic Panel (non-fasting) (06/16/2023 3:30 AM EDT) Glucose 110 65 - 199 mg/dL [facility] Comment:Diabetes: >=200 mg/d L plus symptoms Blood Urea Nitrogen 28(H) 8 - 18 mg/dL [facility] Creatinine 1.20 0.70 - 1.20 mg/dL [facility] Sodium 135 135 - 145 mmol/L [facility] Potassium 2.7(Criti edy) 3.5 - 5.0 mmol/L [facility] Comment: called by [place] /read back by Jolly Friedman / 06/16/23 [id number] Please note: ??Patients with WBC >100,000 may have falsely elevated Potassium levels. ??For accurate Potassium quantification in these patients send serum separator tube (gold top) for subsequent determinations. ??Contact the Clinical Chemistry Laboratory if there are any questions. Chloride 90(L) 98 - 107 mmol/L [facility] Carbon Dioxide 33(H) 22 - 31 mmol/L [facility] Anion Gap 12 5 - 15 mmol/L [facility] Calcium 9.2 8.5 - 10.5 mg/dL [facility] Est Glomerular Filtration Rate 54(L) >=60 mL/min/1. 73 m?? [facility] [...] MD CHEMISTRY ORDERABL ES Performing Organization Address [facility] Co de Phone Number [facility] [place] [address] * Heparin (unfractionated) Level (06/16/2023 3:30 AM EDT) UF Heparin 0.64 IU/mL [facility] [...] S Performing Organization Address [facility]/ZIP Co de Phone Number [facility] [place] [address] * Lipid Panel (Reflex Direct LDL) (06/16/2023 3:30 AM EDT) Cholesterol, Total 190 mg/dL [facility] Comment: Desirable: ? <200 mg/dL Borderline High: 200-239 mg/dL Higher: ?>yb=498 mg/dL Triglyceride 126 mg/dL [facility] Comment: Normal: ?<150 mg/dL Borderline High: 150-199 mg/dL High: ?200-499 mg/dL Very High: ? >xo=944 mg/dL HDL Cholesterol 50 mg/dL [facility] Comment: Females: High Risk: <50 mg/dL Males: High Risk: <40 mg/dL LDL Cholesterol 115 mg/dL [facility] Comment: Desirable: ? <100 mg/dL Above Desirable: 100-129 mg/dL Borderline High: 130-159 mg/dL High: ?160-189 mg/dL Very High: ? >yv=533 mg/dL Lipid Interpretation See Note [facility] [...] ACC/AHA Guidelines (most recently Ysabel et al. [facility] 12/09/21): For individuals with atherosclerotic cardiovascular disease (ASCVD)or LDL >mp=280 mg/dL, use a high-intensity statin (40-80 mg [...] ORDERABLES [facility] [place] [address] * (ABNORMAL) Basic Metabolic Panel (non-fasting) (06/15/2023 9:33 PM EDT) Glucose 120 65 - 199 mg/dL [facility] Carbon Dioxide 31 22 - 31 mmol/L [facility] Anion Gap 12 5 - 15 mmol/L [facility] Calcium 9.4 8.5 - 10.5 mg/dL [facility] Est Glomerular Filtration Rate 45(L) >=60 mL/min/1. 73 m?? [facility] [...] ES [facility] [place] [address] * Heparin (unfractionated) Level (06/15/2023 9:33 PM EDT) UF Heparin 0.63 IU/mL [facility] [...] S Performing Organization Address [facility] Co de Phone Number [facility] [place] [address] * (ABNORMAL) Magnesium (06/15/2023 5:47 PM EDT) Magnesium 1.10(H) 0.69 - 1.07 mmol/L [facility] Blood Venous Draw / Unknown 06/15/2023 5:47 PM EDT 06/15/2023 6:10 PM EDT Narrative Resulting Agency Comment Spec In Lab Terrence Keating MD CHEMISTRY ORDERABLES Performing Organization Address [facility] Co de Phone Number [facility] [place] [address] * (ABNORMAL) Basic Metabolic Panel (non-fasting) (06/15/2023 5:47 PM EDT) Glucose 147 65 - 199 mg/dL [facility] [...] Filtration Rate 54(L) >=60 mL/min/1. 73 m?? [facility] [...] ES [facility] [place] [address] * Rapid Drug Screen w/o Confirmation, Urine (06/15/2023 4:46 PM EDT) Pathologist [facility] Barbiturates Screen, Urine None Detected None Detected [facility] Benzodiazepines Screen, Urine None Detected None Detected [facility] Cocaine Screen, Urine None Detected None Detected [facility] Metabolites Screen, Urine None Detected None Detected [facility] Opiate Screen, Urine None Detected None Detected [facility] Cannabinoid Screen, Urine None Detected None Detected [facility] Comment: The marijuana metabolites screen detects the THC metabolite ([id number]-carboxy-delta 9-THC) at concentrations >20 ng/mL. A ? Presumptive Positive? result indicates that the screening result was positive but has not yet been confirmed by a highly-specific method. As with any screen, occasional false positive results from cross-reacting substances may occur. Not for Medico-Legal Purposes. Oxycodone Screen, Urine None Detected None Detected [facility] Buprenorphine Screen, Urine None Detected None Detected [facility] of this test were determined by [facility] in accordance with CLIA requirements. This laboratory is qualified under CLIA to perform high-complexity testing. Fentanyl Screen, Urine None Detected None Detected [facility] characteristics of this test were determined by [facility] in accordance with CLIA requirements. This laboratory is qualified under CLIA to perform high-complexity testing. Tricyclics Screen, Urine None Detected None Detected [facility] of this test were determined by [facility] in accordance with CLIA requirements. This laboratory is qualified under CLIA to perform high-complexity testing. Ethanol Screen, Urine None Detected None Detected [facility] Comment:This urine ethanol a ssay detects ethanol at concentrations >/= 100 mg/L. Amphetamines Screen, Urine None Detected None Detected [facility] Specimen Validity Test, Urine 39 >=20 mg/dL [facility] Chromate Specimen Validity Test, Urine <2.0 <=49.9 mg/L [facility] Nitrite Specimen Validity Test, Urine <50 <=499 mg/L [facility] Oxidant Specimen Validity Test, Urine 12 <=199 mg/L [facility] pH Specimen Validity Test, Urine 5.4 3.0 - 10.9 [facility] Adulterants Screen, Urine None Detected None Detected [facility] Comment:No adulteration of t his urine sample was detected. Urine 06/15/2023 4:46 PM EDT 06/15/2023 5:30 PM EDT Narrative Resulting Agency Comment Spec In Lab Eufemia Copeland MD CHEMISTRY ORDERABL ES [facility] [place] [address] * Rapid Drug Screen, Urine (TEE Request) (06/15/2023 4:46 PM EDT) TEE Conf Requested No [facility] TEE Requested See Comment [facility] Comment:Refer to Rapid Drug Screen w/o Confirmation, Urine for results. Urine 06/15/2023 4:46 PM EDT 06/15/2023 5:30 PM EDT Narrative Resulting Agency Comment Spec In Lab Eufemia Copeland MD URINE ORDERABLES [facility] [place] [address] * (ABNORMAL) Basic Metabolic Panel (non-fasting) (06/15/2023 2:29 PM EDT) Glucose 141 65 - 199 mg/dL [facility] Comment:Diabetes: >=200 mg/d L plus symptoms Blood Urea Nitrogen 31(H) 8 - 18 mg/dL [facility] Carbon Dioxide 32(H) 22 - 31 mmol/L [facility] Anion Gap 11 5 - 15 mmol/L [facility] Calcium 9.6 8.5 - 10.5 mg/dL [facility] Est Glomerular Filtration Rate 53(L) >=60 mL/min/1. 73 m?? [facility] MD CHEMISTRY ORDERABL ES Performing Organization Address [facility] Co de Phone Number [facility] [place] [address] * Heparin (unfractionated) Level (06/15/2023 2:29 PM EDT) Pathologist [facility] UF Heparin 0.93 IU/mL [facility] [...] S Performing Organization Address [facility]/ZIP Co de Phone Number [facility] [place] [address] * EKG 12 Lead (06/15/2023 10:50 AM EDT) Ventricular rate 55 BPM MUSE SYSTEM Atrial Rate 55 BPM MUSE SYSTEM P-R Interval 184 ms MUSE SYSTEM QRS Duration 96 ms MUSE SYSTEM Q-T Interval 590 ms MUSE SYSTEM QTC Calculated (Bezet) 565 ms MUSE SYSTEM Calculated P [place] 54 degrees MUSE SYSTEM Calculated R [place] 54 degrees MUSE SYSTEM Calculated T [place] 13 degrees MUSE SYSTEM INTERPRETATION Sinus bradycardia with sinus arrhythmia Marked ST abnormality, possible inferior subendocardial injury Long QT interval Abnormal ECG When compared with ECG of 15-JUN-2023 02:17, Nonspecific T wave abnormality has replaced inverted T waves in Lateral leads Confirmed by Kai Haider ([id number]) on 06/16/2023 3:52:04 PM MUSE SYSTEM 06/15/2023 10:5 0 AM EDT 06/16/2023 3:52 PM EDT Terrence Keating MD ECG ORDERABLES MUSE SYSTEM * (ABNORMAL) Basic Metabolic Panel (non-fasting) (06/15/2023 8:18 AM EDT) Glucose 113 65 - 199 mg/dL [facility] Carbon Dioxide 30 22 - 31 mmol/L [facility] Anion Gap 15 5 - 15 mmol/L [facility] Calcium 10.0 8.5 - 10.5 mg/dL [facility] Est Glomerular Filtration Rate 53(L) >=60 mL/min/1. 73 m?? [facility] [...] MD CHEMISTRY ORDERABL ES Performing Organization Address [facility] Co de Phone Number [facility] [place] [address] * Heparin (unfractionated) Level (06/15/2023 8:18 AM EDT) UF Heparin 0.70 IU/mL [facility] [...] MD HEMATOLOGY ORDERABLE S Performing Organization Address City/[facility]/ZIP Co de Phone Number [facility] [place] [address] * (ABNORMAL) Troponin (06/15/2023 8:18 AM EDT) [facility] Troponin-T, High Sensitivity 33(H) <=14 ng/L [facility] [...] troponin value can be found in the [facility] Test Catalog Troponin - [facility] Test Catalog Reference: Fourth [place] Definition of Myocardial Infarction. Journal of the [place] [employer] 2018;72:7987-2545 Blood 06/15/2023 8:18 AM EDT 06/15/2023 8:34 AM EDT Narrative Resulting Agency Comment Spec In Lab Terrence Keating MD CHEMISTRY ORDERABLES [facility] [place] [address] * Differential, Automated (06/15/2023 4:28 AM EDT) Pathologist [facility] Neutrophil % 48.0 % [facility] Neutrophil Absolute 3.20 1.70 - 6.10 x10(3)/mcL [facility] Lymph % 35.8 % [facility] Lymphocytes Abs 2.4 0.9 - 3.2 x10(3)/[facility] Monocyte % 11.4 % [facility] Monocyte Abs 0.8 0.3 - 0.9 x10(3)/[facility] Eos % 3.7 % [facility] Eosinophils Abs 0.2 0.0 - 0.4 x10(3)/[facility] Basophil % 1.0 % [facility] Baso Absolute 0.1 0.0 - 0.1 x10(3)/[facility] Immature Gran % 0.10 % [facility] Comment: Immature granulocytes(IG's)percentage and absolute count will include metamyelocytes, myelocytes, and promyelocytes. Blood smears from CBCs yielding IG's will be scanned manually for concordance. If this scan disagrees with the automated IG or if promyelocytes are noted, a manual differential will be performed. Immature Gran Absolute 0.01 0.00 - 0.04 x10(3)/[facility] Blood 06/15/2023 4:28 AM EDT 06/15/2023 4:37 AM EDT Narrative Resulting Agency Comment Spec In Lab Terrence Keating MD HEMATOLOGY ORDERABLE S [facility] [place] [address] * (ABNORMAL) Hemogram (06/15/2023 4:28 AM EDT) White Blood Cell 6.7 4.0 - 9.5 x10(3)/ L [facility] Red Blood Cell 5.09 4.00 - 5.21 x10(6)/ L [facility] Hemoglobin 16.1(H) 11.7 - 15.5 g/dL [facility] Hematocrit 48.2(H) 35.7 - 45.8 % [facility] Mean Cell Volume 94.7(H) 82.6 - 94.4 fL [facility] Mean Cell Hemoglobin 31.6 27.1 - 32.0 pg [facility] Mean Cell Hemoglobin Concentration 33.4 31.7 - 35.0 g/dL [facility] Platelet 253 145 - 357 x10(3)/mc L [facility] RDW Standard Deviation 45.5 37.0 - 46.0 fL [facility] RDW coefficient of variation 13.0 11.5 - 14.1 % [facility] Mean Platelet Volume 10.6 7.6 - 12.9 fL [facility] NRBC% auto 0.0 % [facility] NRBC Absolute 0.000 0.000 - 0.000 x10(3)/mc L [facility] Blood 06/15/2023 4:28 AM EDT 06/15/2023 4:37 AM EDT Narrative Resulting Agency Comment Spec In Lab Terrence Keating MD HEMATOLOGY ORDERABLE S [facility] [place] [address] * (ABNORMAL) Troponin (06/15/2023 4:28 AM EDT) Troponin-T, High Sensitivity 34(H) <=14 ng/L [facility] [...] troponin value can be found in the [facility] Test Catalog Troponin - [facility] Test Catalog Reference: Fourth [place] Definition of Myocardial Infarction. Journal of the [place] [employer] 2018;72:3949-3914 Blood 06/15/2023 4:28 AM EDT 06/15/2023 4:37 AM EDT Narrative Resulting Agency Comment Spec In Lab Terrence Keating MD CHEMISTRY ORDERABLES Performing Organization Address [facility] Co de Phone Number [facility] [place] [address] * (ABNORMAL) Prothrombin Time (06/15/2023 4:28 AM EDT) Prothrombin Time 12.7(H) 9.4 - 12.5 sec [facility] International Normalization Ratio 1.1 [facility] [...] S Performing Organization Address [facility] Co de Phone Number [facility] [place] [address] * (ABNORMAL) Hepatic Function Panel (06/15/2023 4:28 AM EDT) Protein, Total 7.5 6.1 - 8.0 g/dL [facility] Albumin 4.3 3.2 - 5.2 g/dL [facility] Aspartate Aminotransferase 32(H) 0 - 30 unit/L [facility] Alanine Aminotransferase 26 0 - 30 unit/L [facility] Alkaline Phosphatase 70 35 - 105 unit/L [facility] Bilirubin, Total 0.8 0.2 - 1.3 mg/dL [facility] Bilirubin, Direct 0.1 0.0 - 0.3 mg/dL [facility] Blood 06/15/2023 4:28 AM EDT 06/15/2023 4:37 AM EDT Narrative Resulting Agency Comment Spec In Lab Terrence Keating MD CHEMISTRY ORDERABLES Performing Organization Address City/[facility]/ZIP Co de Phone Number [facility] [place] [address] * (ABNORMAL) pro-Brain Natriuretic Peptide (06/15/2023 4:28 AM EDT) NT-proBNP 1,953(H) <=124 pg/mL [facility] Blood 06/15/2023 4:28 AM EDT 06/15/2023 4:37 AM EDT Narrative Resulting Agency Comment Spec In Lab Terrence Keating MD CHEMISTRY ORDERABLES Performing Organization Address City/[facility]/ZIP Co de Phone Number [facility] [place] [address] * TSH (06/15/2023 4:28 AM EDT) Thyroid Stimulating Hormone 2.98 0.27 - 4.20 mcIU/mL [facility] Comment: Reference Interval (mcIU/mL): Females: ??First Trimester: 0.23-3.88 ??Second Trimester: 0.22-3.90 ??Third Trimester: 0.44-4.66 Blood 06/15/2023 4:28 AM EDT 06/15/2023 4:37 AM EDT Narrative Resulting Agency Comment Spec In Lab Terrence Keating MD CHEMISTRY ORDERABLES Performing Organization Address City/[facility]/ZIP Co de Phone Number [facility] [place] [address] * Phosphorus (06/15/2023 4:28 AM EDT) Phosphorus 4.4 2.5 - 4.5 mg/dL [facility] Blood 06/15/2023 4:28 AM EDT 06/15/2023 4:37 AM EDT Narrative Resulting Agency Comment Spec In Lab Terrence Keating MD CHEMISTRY ORDERABLES Performing Organization Address [facility] Co de Phone Number [facility] [place] [address] * (ABNORMAL) Magnesium (06/15/2023 4:28 AM EDT) Magnesium 1.22(H) 0.69 - 1.07 mmol/L [facility] Blood 06/15/2023 4:28 AM EDT 06/15/2023 4:37 AM EDT Narrative Resulting Agency Comment Spec In Lab Terrence Keating MD CHEMISTRY ORDERABLES Performing Organization Address City/[facility]/ZIP Co de Phone Number [facility] [place] [address] * Calcium (06/15/2023 4:28 AM EDT) Calcium 9.7 8.5 - 10.5 mg/dL [facility] Blood 06/15/2023 4:28 AM EDT 06/15/2023 4:37 AM EDT Narrative Resulting Agency Comment Spec In Lab Terrence Keating MD CHEMISTRY ORDERABLES Performing Organization Address City/[facility]/ZIP Co de Phone Number [facility] [place] [address] * (ABNORMAL) Basic Metabolic Panel (non-fasting) (06/15/2023 4:28 AM EDT) Glucose 112 65 - 199 mg/dL [facility] Comment:Diabetes: >=200 mg/d L plus symptoms Blood Urea Nitrogen 30(H) 8 - 18 mg/dL [facility] Carbon Dioxide 28 22 - 31 mmol/L [facility] Anion Gap 16(H) 5 - 15 mmol/L [facility] Calcium 9.7 8.5 - 10.5 mg/dL [facility] Est Glomerular Filtration Rate 52(L) >=60 mL/min/1. 73 m?? [facility] [...] ORDERABLES [facility] [place] [address] * EKG 12 Lead (06/15/2023 2:17 AM EDT) Ventricular rate 57 BPM MUSE SYSTEM Atrial Rate 57 BPM MUSE SYSTEM P-R Interval 200 ms MUSE SYSTEM QRS Duration 94 ms MUSE SYSTEM Q-T Interval 606 ms MUSE SYSTEM QTC Calculated (Bezet) 591 ms MUSE SYSTEM Calculated P [place] 66 degrees MUSE SYSTEM Calculated R [place] 74 degrees MUSE SYSTEM Calculated T At[place] -33 degrees MUSE SYSTEM INTERPRETATION Sinus bradycardia Possible Lateral infarct (cited on or before 17-APR-2023) Marked ST abnormality, possible inferior subendocardial injury Prolonged QTc Abnormal ECG When compared with ECG of 20-APR-2023 10:23, Nonspecific T wave changes QT has lengthened Confirmed by fellow MD Hansa, Sindhu ([id number]) on 06/15/2023 4:36:19 PM Confirmed by MD Petey, Kia ([id number]) on 06/15/2023 4:51:21 PM MUSE SYSTEM 06/15/2023 2:17 AM EDT 06/15/2023 4:51 PM EDT Terrence Keating MD ECG ORDERABLES Performing Organization Address City/[facility] Co de Phone Number [...] applied? Please also specify in administration instructions. Knee / right, Dose of medication being applied? 4 gram [...] 25 mg, Intravenous, ONCE, 1 dose, On Wed06/17/23 at 1415, Routine Given 06/17/2023 1:40 PM EDT 25 mg diphenhydrAMINE (Benadryl) (50 mg/mL) injection 25 mg 25 mg, Intravenous, ONCE, 1 dose, On Wed06/19/23 at 0630, Routine Given 06/19/2023 5:50 AM [...] 40 mg, Intravenous, ONCE, 1 dose, On 06/16/23 at 1615 Given 06/16/2023 5:07 PM EDT 40 mg furosemide (Lasix) (10 mg/mL) injection 40 mg 40 mg, Intravenous, ONCE, 1 dose, On Aura 06/17/23 at 0845 Given 06/17/2023 9:02 AM EDT [...] 40 mg, Intravenous, ONCE, 1 dose, On Tu06/29/23 at 1745 Given 06/29/2023 5:33 PM EDT [...] 240 mL, Oral, ONCE, 1 dose, On 06/21/23 at 1500, 8 ounce cup = 240 [...] 2 g, Intravenous, ONCE, 1 dose, On Wed07/03/23 at 2045, Administer over 120 Minutes New [...] 10 mg, Intravenous, ONCE, 1 dose, On 06/23/23 at 0000, Doses greater than 10mg should [...] PRN, Starting on Wed06/15/23 at 0146, Until Wed06/19/23 at 0719, Chest pain, SL nitroglycerin may [...] tablet 1 tablet 1 tablet, Oral, ONCE, On 06/26/23 at 1545, 1 dose, Maximum dose of acetaminophen is 4000 mg from all sources in 24 hours. Given 06/26/2023 3:37 PM EDT 1 tablet oxyCODONE-acetaminophen (Percocet) 5-325 mg per tablet 1 tablet 1 tablet, Oral, ONCE, On 06/27/23 at 1245, 1 dose, Maximum dose of acetaminophen is 4000 mg from all sources in 24 hours. Given 06/27/2023 12:21 PM EDT 1 tablet oxyCODONE-acetaminophen (Percocet) 5-325 mg per tablet 1 tablet 1 tablet, Oral, EVERY 6 HOURS PRN, Pain, Starting on Wed06/29/23 at 0120, Until Wed07/04/23 at 1709, Maximum dose of acetaminophen is 4000 mg from all sources in 24 hours. Given 07/03/2023 9:31 PM EDT 1 tablet Given 07/03/2023 10:08 AM EDT 1 tablet Given 07/01/2023 12:39 PM EDT 1 tablet oxyCODONE-acetaminophen (Percocet) 5-325 mg per tablet 1 tablet 1 tablet, Oral, EVERY 6 HOURS PRN, Pain, for pain refractory to PRN acetaminophen, Starting on Wed07/06/23 at 1020, Until Wed07/09/23 at 1844, Maximum dose of acetaminophen is 4000 mg from all sources in 24 hours. Given 07/08/2023 9:20 PM EDT 1 tablet [...] 10 mEq 100 mL/hr Ri ght Arm Bag 06/15/2023 5:47 PM EDT 10 mEq [...] 4:43 PM EDT 10 mEq 100 mL/hr 06/16/2023 4:00 PM EDT 10 mEq 100 mL/hr 06/16/2023 3:31 PM EDT 10 mEq 100 [...] 40 mEq, Oral, ONCE, 1 dose, On 06/16/23 at 1615, potassium chloride ER particle/crystal tablets [...] 40 mEq, Oral, ONCE, 1 dose, On 06/20/23 at 0730, potassium chloride ER particle/crystal tablets [...] 50 mg, Oral, ONCE, 1 dose, On Wed06/24/23 at 2315, Maximum dose: 200mg in 24 [...] (Given - Provider: Heidy Paris RN)1332 ([facility] Hold - Provider: Admin Adt - Reason: Transfer to a Procedural area)1548 ([facility] Unhold - Provider: Admin Adt) 0855 (Given - Provider: Heidy Paris RN) 0930 (Given - Provider: Heidy Paris RN) DULoxetine DR (Cymbalta) capsule 60 mg 60 mg, Oral, DAILY, First dose on Wed06/15/23 at 0900, Until Discontinued, Routine 0853 (Given - Provider: Heidy Paris RN)1332 ([facility] Hold - Provider: Admin Adt - Reason: Transfer to a Procedural area)1548 ([facility] Unhold - Provider: Admin Adt) 0856 (Given - Provider: Heidy Paris RN) 0931 (Given - Provider: Heidy Paris RN) gabapentin (Neurontin) capsule 600 mg 600 mg, Oral, NIGHTLY, First dose on Wed06/15/23 at 0200, Until Discontinued, Routine 1332 ([facility] Hold - Provider: Admin Adt - Reason: Transfer to a Procedural area)1548 ([facility] Unhold - Provider: Admin Adt)2137 (Given [...] Paris RN - Reason: Patient/family refused)1332 ([facility] Hold - Provider: Admin Adt - Reason: Transfer to a Procedural area)1548 ([facility] Unhold - Provider: Admin Adt) 1000 [...] Paris RN - Reason: Patient/family refused)1332 ([facility] Hold - Provider: Admin Adt - Reason: Transfer to a Procedural area)1548 ([facility] Unhold - Provider: Admin Adt) 0900 [...] (Given - Provider: Heidy Paris RN)1332 ([facility] Hold - Provider: Admin Adt - Reason: Transfer to a Procedural area)1548 ([facility] Unhold - Provider: Admin Adt)2135 (Given [...] Paris RN - Reason: Patient/family refused)1332 ([facility] Hold - Provider: Admin Adt - Reason: Transfer to a Procedural area)1548 ([facility] Unhold - Provider: Admin Adt) 1000 (Not Given - Provider: Heidy Paris RN - Reason: Patient/family refused) rOPINIRole (Requip) tablet 2 mg 2 mg, Oral, 2 TIMES DAILY, First dose on Wed06/15/23 at 0245, Until Discontinued, Routine 0853 (Given - Provider: Heidy Paris RN)1332 ([facility] Hold - Provider: Admin Adt - Reason: Transfer to a Procedural area)1548 ([facility] Unhold - Provider: Admin Adt)2137 (Given - Provider: Lorena Torres, ERWIN) 0856 (Given - Provider: Heidy Paris, ERWIN)211 (Given - Provider: Machelle Busch RN) 0931 (Given - Provider: Heidy Paris RN) senna-docusate (Pericolace) 8.6-50 mg per tablet 2 tablet 2 tablet, Oral, 2 TIMES DAILY, First dose on Wed06/17/23 at 1100, Until Discontinued, Routine 0900 (Not Given - Provider: Heidy Paris RN - Reason: Patient/family refused)1332 ([facility] Hold - Provider: Admin Adt - Reason: Transfer to a Procedural area)1548 ([facility] Unhold - Provider: Admin Adt)2100 (Not [...] 0859 (Given - Provider: Heidy Paris RN)1332 ([facility] Hold - Provider: Admin Adt - Reason: Transfer to a Procedural area)1548 ([facility] Unhold - Provider: Admin Adt)2100 (Not Given - Provider: Lorena Torres, RN - Reason: Contraindicated) 0859 (Given - Provider: Heidy Paris RN)211 (Given - Provider: Machelle Busch RN) 0937 (Given - Provider: Heidy Paris, ERWIN) spironolactone (Aldactone) tablet 25 mg 25 mg, Oral, DAILY, First dose on Wed06/15/23 at 0900, Until Discontinued, DO NOT SPLIT, CRUSH OR OPEN, Routine 0853 (Given - Provider: Heidy Paris RN)1332 ([facility] Hold - Provider: Admin Adt - Reason: Transfer to a Procedural area)1548 ([facility] Unhold - Provider: Admin Adt) 0856 (Given - Provider: Heidy Paris RN) 0931 (Given - Provider: Heidy Paris RN) topiramate (Topamax) tablet 100 mg 100 mg, Oral, NIGHTLY, First dose on Wed06/15/23 at 2100, Until Discontinued, Routine 1332 ([facility] Hold - Provider: Admin Adt - Reason: Transfer to a Procedural area)1548 ([facility] Unhold - Provider: Admin Adt)213 (Given - [...] Until Wed07/07/23 at 1548, Endoscopy (Intra-Procedure) 1410 ([facility] Bag - Provider: Gisel Boyer RN) [...] pain medications are indicated., Routine 1332 ([facility] Hold - Provider: Admin Adt - Reason: Transfer to a Procedural area)1548 ([facility] Unhold - Provider: Admin Adt) albuteroL (Proventil, Ventolin) (2.5 mg/3 mL) (0.083 %) nebulizer solution 2.5 mg 2.5 mg, Nebulization, EVERY 4 HOURS PRN, Starting on Wed07/04/23 at 0857, Until Wed07/09/23 at 1844, Wheezing, Routine 1332 ([facility] Hold - Provider: Admin Adt - Reason: Transfer to a Procedural area)1548 ([facility] Unhold - Provider: Admin Adt) lidocaine (Xylocaine) 1% (10 mg/mL) injection 3 mg 3 mg (0.3 mL), Subcutaneous, ONCE PRN, 1 dose, Starting on Wed06/15/23 at 0146, Until Wed07/09/23 at 1844, for discomfort with PIV insertion, Routine 1332 ([facility] Hold - Provider: Admin Adt - Reason: Transfer to a Procedural area)1548 ([facility] Unhold - Provider: Admin Adt) loratadine (Claritin) tablet 10 mg 10 mg, Oral, DAILY PRN, Starting on Wed06/15/23 at 0146, Until Wed07/09/23 at 1844, allergies, Routine 1332 ([facility] Hold - Provider: Admin Adt - Reason: Transfer to a Procedural area)1548 ([facility] Unhold - Provider: Admin Adt) nitroGLYcerin (Nitrostat) disintegrating tablet 0.4 mg 0.4 mg, Sublingual, EVERY 5 MIN PRN, Starting on Wed06/22/23 at 1119, Until Wed07/09/23 at 1844, Chest pain, SL nitroglycerin may be repeated every 5 minutes as needed up to 3 doses, Routine 1332 ([facility] Hold - Provider: Admin Adt - Reason: Transfer to a Procedural area)1548 ([facility] Unhold - Provider: Admin Adt) 0951 (Given - Provider: Heidy Paris, ERWIN) ondansetron (pf) (Zofran) (2 mg/mL) injection 4 mg 4 mg, Intravenous, EVERY 8 HOURS PRN, Starting on Wed06/29/23 at 1449, Until Wed07/09/23 at 1844, Nausea 1332 ([facility] Hold - Provider: Admin Adt - Reason: Transfer to a Procedural area)1548 ([facility] Unhold - Provider: Admin Adt)2137 (Given - Provider: Lorena Torres RN) 1008 (Given - Provider: Heidy Paris RN) 1140 (Given - Provider: Heidy Paris RN) oxyCODONE-acetaminophen (Percocet) 5-325 mg per tablet 1 tablet 1 tablet, Oral, EVERY 6 HOURS PRN, Pain, for pain refractory to PRN acetaminophen, Starting on Wed07/06/23 at 1020, Until Wed07/09/23 at 1844, Maximum dose of acetaminophen is 4000 mg from all sources in 24 hours. 1332 ([facility] Hold - Provider: Admin Adt - Reason: Transfer to a Procedural area)1548 ([facility] Unhold - Provider: Admin Adt)2137 (Given - Provider: Lorena Torres, ERWIN) 0855 (Given - Provider: Heidy Paris, ERWIN)2120 (Given - Provider: Machelle Busch RN) simethicone (Gas-X Chew) 80 mg chewable tablet 80 mg 80 mg, Oral, EVERY 6 HOURS PRN, Starting on Wed06/20/23 at 0941, Until Wed07/09/23 at 1844, Cramping, Routine 1332 ([facility] Hold - Provider: Admin Adt - Reason: Transfer to a Procedural area)1548 ([facility] Unhold - Provider: Admin Adt) 1344 [...] Routine documented in this encounter Care Teams Automatic Nailing Machine Feeder Relationship Specialty Start Date End Date Polo Pearce PA [address] [place] [address] PCP - General Internal Medicine 06/09/21 documented as of this encounter
--- OUTSIDE RECORDS SUMMARY | 2024-01-24 12:33 | XMS_ITS | Encounter Summary ---
Author Organization [facility] [place] [address] Care Team Providers Care Milling Machine Operator Name Role Phone Polo Pearce Primary Care Provider [phone] Reason for Referral * Consultation (Routine) - Closed Specialty Diagnoses / Procedures Referred By Jayant harris Referred To Contact Gastroenterology Diagnoses Chronic abdominal pain chronic abd pain after meals Porsha San MD [facility] [place] [address] [facility] [address] [place] [address] Referral ID Status Reason Start Date Expiration Date V isits Requested Visits Authorized [id number] Closed Consult, Test & Treat 07/08/2023 07/07/2024 1 1 Encounter Details Date Type Department Care Team (Late st Contact Info) Description 07/08/2023 Orders [place] [address] Porsha San MD [facility] [place] [address] Chronic abdominal pain Social History [...] PM EST Office Visit Cardiology at [address] [address] Jaspreet Kinsey MD [facility] [place] [address] Scheduled Referrals Name Type Priority Associated Diagnoses Order Schedule Referral to Gastroenterology Outpatient Referral Routine Chronic abdominal pain Ordered: 07/08/2023 documented as of this encounter Visit Diagnoses Diagnosis Chronic abdominal pain Abdominal pain, unspecified site documented in this encounter Care Teams Milling Machine Operator Relationship Specialty Start Date End Date Polo Pearce PA [address] [facility] [address] [place] [address] PCP - General Internal Medicine 06/09/21 documented as of this encounter
--- OUTSIDE RECORDS SUMMARY | 2024-01-24 12:33 | XMS_ITS | Encounter Summary ---
[place] [address] Care Team Providers Care Ad Writer Name Role Phone Polo Pearce Primary Care Provider [phone] Reason for Visit * Auth/Cert (Routine) Specialty Diagnoses / Procedures Referred By Contac t Referred To Contact Diagnoses NSTEMI (non-ST elevated myocardial infarction) NSTEMI Procedures ER Lloyd Pantoja MD [facility] [place] [address] [facility] Referral ID Status Reason Start Date Expiration Date Visits Re quested Visits Authorized [id number] 1 1 Encounter Details Date Type Department Care Team (Late st Contact Info) Description 07/07/2023 2:05 PM EDT Anesthesia [place] [address] Constantine Velez MD [facility] [place] [address] Anesthesia Record Procedure Summary Procedure Name Responsible [...] In the past 12 months has e [employer] gas, oil, or water [employer] threatened to shut off services in [...] Department of Anesthesiology Post-procedure Note Patient: Indira Rouqe Procedure Summary Date: 07/07/23 Room / Location: [facility] ENDO 5 / [facility] END[facility]COPY Anesthesia Start: 1405 Anesthesia Stop: 151 Procedures: EGD WITH BIOPSY (WRVU 2.39) (Trunk) COLONOSCOPY FLEXIBLE, WITH BX (WRVU 3.56) (Trunk) Diagnosis: (post prandial pain) Surgeons: Lashonda Villa MD Responsible Provider: Constantine Velez MD Anesthesia Type: general ASA Status: 4 All Anesthesia Providers: Anesthesiologist: Constantine Velez MD ASSISTANT MANAGER BILINGUAL: Darío Barlow CRNA Cuff Slitter: Lawrence Lopez MD Vitals Value Taken Time BP 96/51 07/07/23 1530 Temp Pulse Resp SpO2 100 % 07/07/23 1537 Pain Level 1 07/07/23 1510 Vitals shown include unfiled device data. Patient Location: PACU/[facility] Level of Consciousness: Awake and Alert [...] 1:00 PM EST Office Visit Cardiology at [address] [place] [address] Jaspreet Kinsey MD [facility] [place] [address] documented as of this encounter Visit Diagnoses [...] mg documented in this encounter Care Teams Ad Writer Relationship Specialty Start Date End Date Polo Pearce PA [address] [place] [address] PCP - General Internal Medicine 06/09/21 documented as of this encounter
--- OUTSIDE RECORDS SUMMARY | 2024-01-24 12:34 | XMS_ITS | Encounter Summary ---
[place] [address] Care Team Providers Care Wire Taper Name Role Phone Polo Pearce Primary Care Provider [phone] Reason for Visit * Auth/Cert (Routine) Specialty Diagnoses / Procedures Referred By Contac t Referred To Contact Diagnoses NSTEMI (non-ST elevated myocardial infarction) NSTEMI Procedures ER Terrence Pantoja MD [facility] [place] [address] [facility] Referral ID Status Reason Start Date Expiration Date Visits Re quested Visits Authorized [id number] 1 1 Encounter Details Date Type Department Care Team (Late st Contact Info) Description 07/07/2023 1:00 PM EDT - 07/07/2023 2:00 PM EDT [place] [address] Lashonda Villa MD [facility] [place] [address] EGD WITH BIOPSY (WRVU 2.39) Social History [...] Loida Roque Patient Age: 53 y.o. Language: Northern Irish Race: White Ethnicity: Not nor Admit date: 06/14/2023 Discharge date and time: 07/09/2023 3:31 PM Attending Physician: Terrence Keating MD Discharge Physician: Terrence Keating MD Follow-up Recommendations for Providers: Inpatient Provider Contact Information: For questions regarding this document or issues relating to this hospitalization on the Medical Service, please contact your inpatient physician through the [facility] Revenue Investigator . Issues afterhours and on weekends will [...] education 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 Abdomen & [...] education 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 Chest One [...] education 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 Abdomen Limited (Exam End: 06/28/2023 12:22 PM) Result Value WORKSTATION ID [id number] Narrative Abdominal (Signed Final 06/28/2023 02:08 pm) PATIENT INFO: ID #: [id number] : [birth year] (53 yrs)(F) Name: LOIDA Visit Date: 06/28/2023 12:20 pm ROHAN PERFORMED BY: Attending: Sigrid Owens MD Resident: Rafaela Huddleston MD Performed By: Deena Cabrera RDMS Referred By: AILYN IRVIN Location: [place] SERVICE(S) PROVIDED: UABDLIM - Abdominal Limited Survey Single [id number] Organ or Quadrant - [id number] INDICATIONS: RUQ pain, R/o Gall bladder colic, [...] who have questions, please contact the health career education 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 Sigrid Owens, E Separating Machine Operator Electronically Signed Final Report 06/28/2023 02:08 pm [...] anesthetic: 10 cc 1% lidocaine Heparin: Yes 46039 Units Protamine: No mg Antibiotics: Ancef Fluoro [...] We exchanged the sheath for a 7 [place] missing persons investigator steerable sheath over a stiff wire. A Glidewire and Kumpe catheter were used to selectively cannulate the superior mesenteric artery. Direct angiography of the superior mesenteric artery was performed, confirming the results of the nonselective aortography performed. The lesion was predilated with a 4 mm x 40 mm [place] balloon, and then a 6 mm X [...] 07/03/2023 3:18 PM) Result Value WORKSTATION ID [id number] Narrative EXAMINATION: XR CHEST ONE VIEW CLINICAL [...] education 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 Echocardiogram from [...] pain. The patient was recently admitted at [facility] [place] to 04/19/2023 as a transfer from [facility] due to exertional chest pressure [...] etiology, patient was accepted for transfer to [facility]. Brief Summary: Loida Roque [...] with positive cardiac markers. Patient transferred to [facility] for further work-up and [...] Administered Date(s) Administered Moderna Covid-19 Monovalent 12Yr+ (Color Control Supervisor 100mcg) 03/06/2020, 04/03/2020 Discharge Medications: Your [...] weight gain + increasing shortness of breath. rosr24-54 minutes prior to a dose of torsemide). [...] appointments: During 8am-5pm Wednesday through Wednesday call [phone] to speak with a nurse in the cardiology clinic All other times call [phone] and ask to speak to the collection systems foreman credit administration officer. Return to work: One week Driving: No driving for 48 hours after catheterization. Follow up Appointments: PCP JOCY Franco [phone] 11:30am on July 19. Cardiology office will call you regarding your appointment with Dr. Kinsey. General Instructions None Future Appointments and Orders Future Appointments and Orders Future Appointments Provider Department Dept Phone 07/26/2023 3:20 PM Jaspreet Kinsey MD Cardiology at [place] Arrive at: [facility] [address] [phone] 07/29/2023 8:00 AM Porsha Mcdaniels MD Cardiology at [facility] [place]rive at: [facility] [phone] 08/03/2023 8:30 AM Eladio Boyer Vascular Lab at [facility] Arrive at: [facility] 3V [phone] 08/03/2023 9:30 AM Judith Butler APRN Vascular Surgery at [facility] Arrive at: [facility] 3V [phone] 09/02/2023 2:40 PM Jaspreet Kinsey MD Cardiology at [place] Arrive at: [facility] [address] [phone] Discharge References/Attachments None Greater than 30 minutes was spent on this discharge including documentation, eqql-[id number] time withthe patient, patient education, purchase order checker, coordination with pharmacy and other patient care. [...] appointments: During 8am-5pm Wednesday through Wednesday call [phone] to speak with a nurse in the cardiology clinic All other times call [phone] and ask to speak to the collection systems foreman credit administration officer. Return to work: One week Driving: No driving for 48 hours after catheterization. Follow up Appointments: PCP JOCY Franco [phone] 11:30am on July 19. Cardiology office will [...] as needed. fluticasone propionate (FLONASE) 50 mcg/actuation [place], Suspension 1 spray by Each Nare route [...] 4pm, per the team. Please refer to: [facility] [address] [place] [address] PHONE: [phone] FAX: [phone] *For RN RICARDO: 07/09/23 Nani Mendoza MSN-Ed, RN ACM Cardiac Research Nurse and Neuro/Neurocrit/ENT Data Analyst Report Writer. * Mary Castaneda RCP - 07/09/2023 4:37 [...] PM EDT CV H[facility]PITALIST 2 - [facility] DAILY PROGRESS NOTE Page [phone] to reach a provider 28/09 Admit Date: [...] 07/06/23 0354 07/05/23 1744 07/05/23 0505 07/04/23 034 NA 139 135 135 134* 134* 139 [...] Recent Labs 07/08/23 0552 07/07/23 0351 07/06/23 035 GLUCOSE 102 101 107 Telemetry: I have [...] with positive cardiac markers. Patient transferred to [facility] for further work-up and [...] prn. Diet: Daily Healthy Menu Choices/Cardiac diet ([facility]iet) DVT Prophylaxis: DOAC heparin gtt. 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 DAILY PROGRESS NOTE Page [phone] to reach a provider 28/09 Admit Date: [...] with positive cardiac markers. Patient transferred to [facility] for further work-up and [...] Score: 24 PT: OT: PCP JOCY Franco [phone] Terrence Keating MD 07/07/2023 * Terrence Keating MD - 07/06/2023 11:00 AM EDT CV H[facility]PITALIST 2 - [facility] DAILY PROGRESS NOTE Page [phone] to reach a provider 28/09 Admit Date: [...] with positive cardiac markers. Patient transferred to [facility] for further work-up and [...] hospital Diet: Daily Healthy Menu Choices/Cardiac diet ([facility]iet) NPO diet (Give Meds) DVT Prophylaxis: DOAC Code status: Attempt Cardiopulmonary Resuscitation - Inpatient Disposition: Discharge Location: AM-PAC Basic Mobility Raw Score: 24 PT: OT: PCP JOCY Franco [phone] Terrence Keating MD 07/06/2023 * Ana Paula [...] AM EDT CV HOSPITALIST 2 - [facility] DAILY PROGRESS NOTE Page [phone] to reach a provider 28/09 Admit Date: 06/14/2023 Encounter Date July 05, 2023 Anticipated Discharge Date: 07/06/2023 Hospital Day: 21 Active Hospital Problems Diagnosis NSTEMI (non-ST elevated myocardial infarction) Resolved Hospital Problems No resolved problems to display. 24 Hour Events/Subjective: NAEON - reports 12/15 abdominal pain today - Weight 222lb downtrending, [...] Continuous Infusions: heparin (porcine) infusion 850 Units/hr (07/04/231929) PRN Meds:.acetaminophen, albuteroL, ondansetron, heparin (porcine) infusion [...] with positive cardiac markers. Patient transferred to [facility] for further work-up and [...] hospital Diet: Daily Healthy Menu Choices/Cardiac diet ([facility]) DVT Prophylaxis: DOAC Code status: Attempt Cardiopulmonary Resuscitation - Inpatient Disposition: Discharge Location: AM-PAC Basic Mobility Raw Score: 24 PT: OT: PCP JOCY Franco [phone] Terrence Keating MD 07/05/2023 * Lino Calles MD - 07/04/2023 9:09 AM EDT CV H[facility]PITALIST 2 - [facility] DAILY PROGRESS NOTE Page [phone] to reach a provider 28/09 Admit Date: [...] with positive cardiac markers. Patient transferred to [facility] for further work-up and [...] migraine Diet: Daily Healthy Menu Choices/Cardiac diet ([facility]) DVT Prophylaxis: DOAC Code status: Attempt Cardiopulmonary Resuscitation - Inpatient Disposition: Discharge Location: AM-PAC Basic Mobility Raw Score: 24 PT: OT: PCP JOCY Franco [phone] Lino Calles MD 07/04/2023 * Ana Paula [...] reach. Safety maintained. Care handoff to Olive HODO without incident. * Marifer Painting RCP - [...] AM EDT CV H[facility]PITALIST 2 - [facility] DAILY PROGRESS NOTE Page [phone] to reach a provider 28/09 Admit Date: [...] 06/15/23 0428 04/18/23 0210 04/17/23 0333 02/08/23220709/27/22 030 TSH 2.98 -- 5.93* 4.00 -- HA1C -- 5.6 -- -- 5.6 No results for input(s): CHLPL, TRIG, HDL, LDLCHOL, CHOLHDL in the last 168 hours. Recent Labs 07/03/23 1800 07/03/23 03007/02/23 0358 GLUCOSE 116 104 96 Telemetry: I [...] with positive cardiac markers. Patient transferred [place] [facility] for further work-up and [...] PRN Diet: Daily Healthy Menu Choices/Cardiac diet ([facility]) DVT Prophylaxis: DOAC Code status: Attempt Cardiopulmonary Resuscitation - Inpatient Disposition: Discharge Location: AM-PAC Basic Mobility Raw Score: 24 PT: OT: PCP JOCY Franco [phone] Lino Calles MD 07/03/2023 * Van Muse [...] AM EDT CV H[facility]PITALIST 2 - [facility] DAILY PROGRESS NOTE Page [phone] to reach a provider 28/09 Admit Date: [...] with positive cardiac markers. Patient transferred to [facility] for further work-up and [...] PRN Diet: Daily Healthy Menu Choices/Cardiac diet ([facility]) DVT Prophylaxis: DOAC Code status: Attempt Cardiopulmonary Resuscitation - Inpatient Disposition: Discharge Location: AM-PAC Basic Mobility Raw Score: 24 PT: OT: PCP JOCY Franco [phone] Lino Calles MD 07/02/2023 * Jaspreet Griffith, [facility] - 07/02/2023 6:35 AM EDT Respiratory [...] AM EDT CV HOSPITALIST 2 - [facility] DAILY PROGRESS NOTE Page [phone] to reach a provider 28/09 Admit Date: [...] 96.5* 93.6 92.8 94.4 94.0 Recent Labs 07/01/2325506/30/2331306/29/2323806/28/2315106/27/23 2006 06/27/23 0434 NA 137 137 138 [...] the last 168 hours. Recent Labs 07/01/23 02506/30/2331306/29/23 0239 GLUCOSE 95 103 100 Telemetry: I [...] with positive cardiac markers. Patient transferred to [facility] for further work-up and [...] PRN Diet: Daily Healthy Menu Choices/Cardiac diet ([facility]) NPO diet (Give Meds) DVT Prophylaxis: DOAC Code status: Attempt Cardiopulmonary Resuscitation - Inpatient Disposition: Discharge Location: AM-[facility] Basic Mobility Raw Score: 24 PT: OT: PCP JOCY Franco [phone] Terrence Keating MD 07/01/2023 * Terrence Keating MD - 06/30/2023 8:00 AM EDT CV HOSPITALIST 2 - [facility] DAILY PROGRESS NOTE Page [phone] to reach a provider 28/09 Admit Date: [...] with positive cardiac markers. Patient transferred to [facility] for further work-up and [...] Score: 24 PT: OT: PCP JOCY Franco [phone] Terrence Keating MD 06/30/2023 * Terrence Keating MD - 06/29/2023 4:29 PM EDT CV HOSPITALIST 2 - [facility] DAILY PROGRESS NOTE Page [phone] to reach a provider 28/09 Admit Date: [...] with positive cardiac markers. Patient transferred to [facility] for further work-up and [...] Score: 24 PT: OT: PCP JOCY Franco [phone] Terrence Keating MD 06/29/2023 * Jo Ann Sharpe - 06/29/2023 2:54 PM EDT Nutrition Services Note - Low Nutrition Acuity Loida Roque is a 53 y.o. female Reason for intervention: follow up Nutrition Plan: Continue current diet. Encourage good PO intake. Spironolactone noted. Abdominal pain after eating noted. Encouragement and support provided. Pt screened for follow-up visit and flex o writer operator met with Pt at bedside. Pt reported [...] consulted in the interim. Jo Ann Sharpe Laborer High Density Press * Mary Castaneda RCP - 06/29/2023 3:55 [...] PM EDT CV HOSPITALIST 2 - [facility] DAILY PROGRESS NOTE Page [phone] to reach a provider 28/09 Admit Date: [...] with positive cardiac markers. Patient transferred [place] [facility] for further work-up and [...] Score: 24 PT: OT: PCP JOCY Franco [phone] * Ailyn Irvin MD - 06/27/2023 9:40 AM EDT CV HOSPITALIST 2 - [facility] DAILY PROGRESS NOTE Page [phone] to reach a provider 28/09 Admit Date: [...] with positive cardiac markers. Patient transferred to [facility] for further work-up and [...] Score: 24 PT: OT: PCP JOCY Franco [phone] * Ailyn Irvin MD - 06/26/2023 12:42 PM EDT CV HOSPITALIST 2 - [facility] DAILY PROGRESS NOTE Page [phone] to reach a provider 28/09 Admit Date: [...] Recent Labs 06/26/23 0406 06/25/23 0150 06/24/23 03306/23/23 0412 06/22/23 0434 NA 135 139 138 [...] with positive cardiac markers. Patient transferred to [facility] for further work-up and [...] Score: 24 PT: OT: PCP JOCY Franco [phone] * Mitali Manuel RCP - 06/26/2023 5:43 [...] PM EDT CV HOSPITALIST 2 - [facility] DAILY PROGRESS NOTE Page [phone] to reach a provider 28/09 Admit Date: [...] with positive cardiac markers. Patient transferred to [facility] for further work-up and [...] Score: 24 PT: OT: PCP JOCY Franco [phone] * Edith Chandler RCP - 06/24/2023 10:40 [...] PM EDT CV HOSPITALIST 2 - [facility] DAILY PROGRESS NOTE Page [phone] to reach a provider 28/09 Admit Date: [...] No cranial nerve deficit. Labs: Recent Labs 06/24/2333706/23/2341106/22/234 06/21/2332406/20/23331 WBC 6.9 8.2 7.5 9.3 10.1* HGB 13.6 14.3 12.8 14.9 14.2 HCT 40.7 43.1 39.1 44.2 41.5 PLATELET 220 233 225 279 253 MCV 93.3 93.9 96.8* 93.2 90.8 Recent Labs 06/24/2333706/23/232 06/22/23 0434 06/21/23 0558 06/21/2332406/20/23331 NA 138 137 138 -- 138 137 [...] with positive cardiac markers. Patient transferred to [facility] for further work-up and [...] Score: 24 PT: OT: PCP JOCY Franco [phone] * Aaron Rosado RCP - 06/24/2023 1:55 [...] PM EDT CV HOSPITALIST 2 - [facility] DAILY PROGRESS NOTE Page [phone] to reach a provider 28/09 Admit Date: [...] with positive cardiac markers. Patient transferred to [facility] for further work-up and [...] Score: 24 PT: OT: PCP JOCY Franco [phone] * Ciera Valdovinos RD - 06/22/2023 2:38 PM EDT Nutrition Services Note - Low Nutrition Acuity Loida Roque is a 53 y.o. female Reason for intervention: hospital day 9 Nutrition Plan: Cardiac Diet Record % PO intake Monitor weight - diuresis noted Patient screened for hospital length of stay nutrition visit, flex o writer operator met with Loida at bedside. Loida reports excellent appetite, eating 100% of meals. She notes that she has not skipped any meals inpatient and has no current nutrition related questions. She notes UBW 217-218 lbs and says that current weight is higher than normal for her. Diuresis noted. Active Orders Diet Daily Healthy Menu Choices/Cardiac diet ([facility]) Frequency: Effective Now Number [...] PM EDT CV HOSPITALIST 2 - [facility] DAILY PROGRESS NOTE Page [phone] to reach a provider 28/09 Admit Date: [...] education 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 Chest One [...] education 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 Assessment: Loida [...] with positive cardiac markers. Patient transferred to [facility] for further work-up and [...] above Diet: Daily Healthy Menu Choices/Cardiac diet ([facility] DVT Prophlaxis: eliquis Code status: Attempt Cardiopulmonary Resuscitation - Inpatient Disposition: Discharge Planning: AM-PAC Basic Mobility Raw Score: 24 PT: OT: PCP JOCY Franco [phone] * Eufemia Copeland MD - 06/21/2023 11:02 AM EDT CV HOSPITALIST 2 - [facility] DAILY PROGRESS NOTE Page [phone] to reach a provider 28/09 Admit Date: [...] with positive cardiac markers. Patient transferred to [facility] for further work-up and [...] Restart eliquis 06/15. #Migraines - continue home page hospitalte - migraine cocktail PRN Fluids: per migraine cocktail Electrolytes: replete as above Diet: Daily Healthy Menu Choices/Cardiac diet ([facility] DVT Prophlaxis: eliquis Code status: Attempt Cardiopulmonary Resuscitation - Inpatient Disposition: Discharge Planning: AM-PAC Basic Mobility Raw Score: 24 PT: OT: PCP JOCY Franco [phone] * Eufemia Copeland MD - 06/20/2023 8:06 AM EDT CV HOSPITALIST 2 - [facility] DAILY PROGRESS NOTE Page [phone] to reach a provider 28/09 Admit Date: [...] with positive cardiac markers. Patient transferred to [facility] for further work-up and [...] above Diet: Daily Healthy Menu Choices/Cardiac diet ([facility] DVT Prophlaxis: eliquis Code status: Attempt Cardiopulmonary Resuscitation - Inpatient Disposition: Discharge Planning: AM-PAC Basic Mobility Raw Score: 24 PT: OT: PCP JOCY Franco [phone] * Eufemia Copeland MD - 06/19/2023 10:00 AM EDT CV HOSPITALIST 2 - [facility] DAILY PROGRESS NOTE Page [phone] to reach a provider 28/09 Admit Date: [...] No cranial nerve deficit. Labs: Recent Labs 06/19/2332106/18/23 0419 06/17/23 0111 06/16/23 0330 06/15/23 0428 WBC 9.4 8.4 9.5 8.2 6.7 HGB 13.9 14.5 14.2 14.5 16.1* HCT 41.7 42.8 43.0 42.7 48.2* PLATELET 244 258 256 260 253 MCV 93.1 91.1 93.5 91.0 94.7* Recent Labs 06/19/23 03206/18/23 1717 06/18/23 0419 06/17/23 1426 06/17/23 0501 [...] 34* PROBNP -- 1,953* Endocrine Recent Labs 06/15/2342704/18/23 0210 04/17/23 0333 02/08/23 2208 09/27/22 0307 [...] with positive cardiac markers. Patient transferred to [facility] for further work-up and [...] above Diet: Daily Healthy Menu Choices/Cardiac diet ([facility] DVT Prophlaxis: eliquis Code status: Attempt Cardiopulmonary Resuscitation - Inpatient Disposition: Discharge Planning: AM-PAC Basic Mobility Raw Score: 24 PT: OT: PCP JOCY Franco [phone] * Eufemia Copeland MD - 06/18/2023 9:02 AM EDT CV HOSPITALIST 2 - [facility] DAILY PROGRESS NOTE Page [phone] to reach a provider 28/09 Admit Date: [...] with positive cardiac markers. Patient transferred to [facility] for further work-up and [...] above Diet: Daily Healthy Menu Choices/Cardiac diet ([facility] DVT Prophlaxis: eliquis Code status: Attempt Cardiopulmonary Resuscitation - Inpatient Disposition: Discharge Planning: AM-PAC Basic Mobility Raw Score: 24 PT: OT: PCP JOCY Franco [phone] * Eufemia Copeland MD - 06/17/2023 12:02 PM EDT CV HOSPITALIST 2 - [facility] DAILY PROGRESS NOTE Page [phone] to reach a provider 28/09 Admit Date: [...] Labs 06/17/23 1426 06/17/23 0501 06/17/23 0111 06/16/238 06/16/23 1429 06/16/23 0901 06/16/23 0330 06/15/23 [...] with positive cardiac markers. Patient transferred to [facility] for further work-up and [...] Restart eliquis 06/15 #Migraines - continue home page hospitalte - migraine cocktail PRN Fluids: per migraine cocktail Electrolytes: replete as above Diet: Daily Healthy Menu Choices/Cardiac diet ([facility] DVT Prophlaxis: eliquis Code status: Attempt Cardiopulmonary Resuscitation - Inpatient Disposition: Discharge Planning: AM-PAC Basic Mobility Raw Score: 24 PT: OT: PCP JOCY Franco [phone] * Calista Hernandez, RT - 06/17/2023 4:36 [...] PM EDT CV HOSPITALIST 2 - [facility] DAILY PROGRESS NOTE Page [phone] to reach a provider 28/09 Admit Date: [...] with positive cardiac markers. Patient transferred to [facility] for further work-up and [...] Restart eliquis 06/15 #Migraines - continue home page hospitaltec - migraine cocktail PRN Fluids: per migraine cocktail Electrolytes: replete as above Diet: Daily Healthy Menu Choices/Cardiac diet ([facility] DVT Prophlaxis: eliquis Code status: Attempt Cardiopulmonary Resuscitation - Inpatient Disposition: Discharge Planning: AM-PAC Basic Mobility Raw Score: 24 PT: OT: PCP JOCY Franco [phone] documented in this encounter H&P Notes * [...] pain. The patient was recently admitted at [facility] [place]23 to 04/19/2023 as a transfer from [facility] due to exertional chest pressure [...] etiology, patient was accepted for transfer to [facility]. 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 fluticasone propionate (FLONASE) 50 mcg/actuation [place], Suspension 1 spray by Each Nare route [...] for discharge to home with family support, [facility] for RN and OP Cardi clinic for f/u. Needs for Transition of Care: Plan for discharge is: Home w/ Services Outpatient Agency/Support Group Needs: None Home Health Services: Registered Nurse Agency Referrals & Follow-up Care: Contact information for follow-up Home Health & Hospice, [place] [address] [place] [address] Transportation: taxi voucher -Ride confirmed entrance #2 [...] other (see comments) (Has CPAP provided through [facility]) DME Needed at Discharge: none Patient is insured through: Primary Insurance: [employer] / Plan[place] / Product Type: *No Product type* / Secondary Insurance: N/A Prescription Coverage: Yes This plan was formulated with input from patient, (please identify family/friend involved if applicable) and team. All are in agreement with plan. Nani Mendoza MSN-Ed, RN ACM Cardiac Research Nurse and Neuro/Neurocrit/ENT Data Analyst Report Writer. * Care Management - Dixie Patterson - 07/09/2023 1:38 PM EDT Transportation for discharge was scheduled and confirmed through [employer]. [employer] will have a flatbed company driver here at entrance #2 @4pm [...] Visceral Aorta 80 16 Celiac Artery, Proximal [place] 119 26 Celiac Artery, Mid [place]hasic 115 21 Celiac Artery, Distal No Vis Sup Mes Artery Proximal [place]ip[place]ic 427 91 Sup Mes Artery Middle [place]ic 100 17 Sup Mes Artery Distal [place] 64 15 Hepatic Artery No Vis Splenic [...] mesenteric duplex, follow up currently scheduled on 5/28 Vascular surgery will sign off at this time, please page [phone] with any questions or concerns. Discussed with [...] Visceral Aorta 80 16 Celiac Artery, Proximal [place] 119 26 Celiac Artery, Mid [place]ic 115 21 Celiac Artery, Distal No Vis Sup Mes Artery Proximal [place]ic 427 91 Sup Mes Artery Middle [place] 100 17 Sup Mes Artery Distal [place] 64 15 Hepatic Artery No Vis Splenic [...] duplex Discussed with Dr. Kamara. Please page [phone] with any questions or concerns. Gauri Vega [...] for further evaluation and management. 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 At [place], patient should be strict NPO. The plan as outlined above was discussed with Dr. Villa. Recommendations were discussed with primary team. Sis Keenan M.D. Fellow in Gastroenterology and Hepatology Pager #[phone] 07/06/2023 Associated attestation - Lashonda Villa MD [...] Lashonda Villa MD Gastroenterology and hepatology Pager: [phone] * Plan of Care - Olive Hernandez [...] Visceral Aorta 80 16 Celiac Artery, Proximal [place] 119 26 Celiac Artery, Mid [place] 115 21 Celiac Artery, Distal No Vis Sup Mes Artery Proximal [place] 427 91 Sup Mes Artery Middle [place] 100 17 Sup Mes Artery Distal [place] 64 15 Hepatic Artery No Vis Splenic [...] duplex Discussed with Dr. Kamara. Please page [phone] with any questions or concerns. Gauri Vega [...] Implemented as Appropriate) * Consult Note - Guari Vega MD - 07/03/2023 7:46 AM EDT [...] Visceral Aorta 80 16 Celiac Artery, Proximal [place] 119 26 Celiac Artery, Mid [place] 115 21 Celiac Artery, Distal No Vis Sup Mes Artery Proximal [place] 427 91 Sup Mes Artery Middle [place] 100 17 Sup Mes Artery Distal [place] 64 15 Hepatic Artery No Vis Splenic [...] ASA) Discussed with Dr. Kamara. Please page [phone] with any questions or concerns. Gauri Vega [...] Visceral Aorta 80 16 Celiac Artery, Proximal [place] 119 26 Celiac Artery, Mid [place] 115 21 Celiac Artery, Distal No Vis Sup Mes Artery Proximal [place] 427 91 Sup Mes Artery Middle [place] 100 17 Sup Mes Artery Distal [place] 64 15 Hepatic Artery No Vis Splenic [...] 07/02/[address] Kamara. Please page [phone] with any questions or concerns. Gauri Vega [...] Visceral Aorta 80 16 Celiac Artery, Proximal [place] 119 26 Celiac Artery, Mid [place] 115 21 Celiac Artery, Distal No Vis Sup Mes Artery Proximal [place] 427 91 Sup Mes Artery Middle [place] 100 17 Sup Mes Artery Distal [place] 64 15 Hepatic Artery No Vis Splenic [...] tonight Discussed with Dr. Kamara. Please page [phone] with any questions or concerns. Gauri Vega [...] Visceral Aorta 80 16 Celiac Artery, Proximal [place] 119 26 Celiac Artery, Mid [place] 115 21 Celiac Artery, Distal No Vis Sup Mes Artery Proximal [place] 427 91 Sup Mes Artery Middle [place] 100 17 Sup Mes Artery Distal [place] 64 15 Hepatic Artery No Vis Splenic [...] Visceral Aorta 80 16 Celiac Artery, Proximal [place] 119 26 Celiac Artery, Mid [place] 115 21 Celiac Artery, Distal No Vis Sup Mes Artery Proximal [place] 427 91 Sup Mes Artery Middle [place] 100 17 Sup Mes Artery Distal [place] 64 15 Hepatic Artery No Vis Splenic [...] Dominguez PA - 06/28/2023 8:52 AM EDT [facility] [place] of [place]iology Consult [...] considered optimized. - Follow up with Dr. Storms in the outpatient setting once euvolemic and on stable dose of diuretic. - Recommend participation in cardiac rehab or structured exercise program on discharge. Case was discussed with Dr. Henderson who agrees with recommendations as documented above. Consult service will continue to follow patient. x Recommendations are above, please page if further consultation required. Chayo Dominguez PA-C Cardiovascular Medicine Pager [phone] 06/28/2023 Associated attestation - Klarissa Henderson - [...] Appropriate) * Plan of Care - Magda Ramriez RN - 06/26/2023 6:54 AM EDT Complained [...] Tellez MD - 06/24/2023 2:14 PM EDT [facility] [place] of Cardiology Consult [...] if further consultation required. Alejandro Tellez MD Reptile Keeper [phone] Associated attestation - Willy Gómez MD [...] other (see comments) (Has CPAP provided through [facility]) DME Needed at Discharge: No Patient is insured through: Primary Insurance: [employer] [place] Pay[place] [employer] [place] / Plan[place] [...] of Discharge: 06/26/2023 BEA Killian, RN Inpatient Pantograph Ii Engraver- Cardiology Office of Care Management Pager #: [phone] * Plan of Care - Alejandro Davenport [...] fraction Overview Note: 05/2021: subacute, presented to [facility] with RUQ pain, weight [...] Not on file 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 fluticasone propionate (FLONASE) 50 mcg/actuation [place], Suspension 1 spray by Each Nare route [...] other (see comments) (Has CPAP provided through [facility]) DME Needed at Discharge: No Patient is insured through: Primary Insurance: [place] / Plan[place] / [...] other (see comments) (Has CPAP provided through [facility]) DME Needed at Discharge: No Patient is insured through: Primary Insurance: [place] [employer] [place] / Plan[place] [facility] [place] / Product Type: *No [...] of Discharge: 06/19/2023 BEA Killian, RN Inpatient Pantograph Ii Engraver- Cardiology Office of Care Management Pager #: [phone] * Plan of Care - Olive Hernandez [...] COVID test: Lab Results Component Value Date [id number] Not Detected 06/13/2021 Past medical History: Past [...] In the past 12 months has the POI, gas, oil, or water [employer] threatened to shut off services in your [...] other (see comments) (Has CPAP provided through [facility]) [address] [facility] [address] Social & Family Supports: All names listed [...] Specific Information: Has a CPAP provided by [facility]/Prescription Coverage: Primary Insurance: [place] [employer] [place] / [place] / Product Type: *No Product type* / Secondary Insurance: N/A ; Prescription Coverage: Yes Preferred Pharmacy: [facility] [address] [address] [facility] [address] [address] Status: Patient is a : No Primary Care Provider confirmed: JOCY Franco [phone] Patient/Caregiver Goals of Treatment: To figure out what is wrong Potential Needs for Transition of Care: other (see comments) ([facility] [place] fincal help) Agency Referrals: Not Applicable Transportation: [...] planning. Office of Care Management Float / radio time salesperson manager contract [email or web address] Pager #[phone] * Consult Note - Jackie Batres MD - 06/15/2023 11:04 AM EDT [facility] [place] of Cardiology Initial [...] her case. She has not had recent ferry terminal agent monitoring for arrhythmia, though unlikely, is possible [...] with questions * Plan of Care - Olvie Hernandez RN - 06/15/2023 5:29 AM EDT [...] 1:00 PM EST Office Visit Cardiology at [address] [place] [address] Jaspreet Kinsey MD [facility] [place] [address] Scheduled Orders Name Type Priority Associated Diagnoses [...] Routine 07/07/2023 2:25 PM EDT Colonoscopy, Biopsy ([id number]) 07/07/2023 2:10 PM EDT post prandial pain Upper Gi Endoscopy, Biopsy ([id number]) 07/07/2023 2:10 PM EDT post prandial pain [...] EDT) Glucose 111 65 - 199 mg/dL [facility] Comment:Diabetes: >=200 mg/d L plus symptoms Blood Urea Nitrogen 29(H) 8 - 18 mg/dL [facility] Creatinine 1.41(H) 0.70 - 1.20 mg/dL [facility] Sodium 140 135 - 145 mmol/L [facility] Potassium 3.6 3.5 - 5.0 mmol/L [facility] Comment: Please note: ??Patients with WBC >100,000 may have falsely elevated Potassium levels. ??For accurate Potassium quantification in these patients send serum separator tube (gold top) for subsequent determinations. ??Contact the Clinical Chemistry Laboratory if there are any questions. Chloride 99 98 - 107 mmol/L [facility] Carbon Dioxide 29 22 - 31 mmol/L [facility] Anion Gap 12 5 - 15 mmol/L [facility] Calcium 10.0 8.5 - 10.5 mg/dL [facility] Est Glomerular Filtration Rate 44(L) >=60 mL/min/1. 73 m?? [facility] [...] In Lab Terrence Keating MD CHEMISTRY ORDERABLES [facility] [place] [address] * Differential, Automated (07/09/2023 3:03 AM EDT) Neutrophil % 51.4 % [facility] Neutrophil Absolute 3.43 1.70 - 6.10 x10(3)/[facility] Lymph % 31.4 % [facility] Lymphocytes Abs 2.1 0.9 - 3.2 x10(3)/[facility] Monocyte % 10.1 % [facility] Monocyte Abs 0.7 0.3 - 0.9 x10(3)/[facility] Eos % 6.0 % [facility] Eosinophils Abs 0.4 0.0 - 0.4 x10(3)/[facility] Basophil % 0.8 % [facility] Baso Absolute 0.0 0.0 - 0.1 x10(3)/[facility] Immature Gran % 0.30 % [facility] Comment: Immature granulocytes(IG's)percentage and absolute count will include metamyelocytes, myelocytes, and promyelocytes. Blood smears from CBCs yielding IG's will be scanned manually for concordance. If this scan disagrees with the automated IG or if promyelocytes are noted, a manual differential will be performed. Immature Gran Absolute 0.02 0.00 - 0.04 x10(3)/[facility] Blood 07/09/2023 3:03 AM EDT 07/09/2023 3:14 AM EDT Narrative Resulting Agency Comment Spec In Lab Terrence Keating MD HEMATOLOGY ORDERABLE S [facility] [place] [address] * (ABNORMAL) Hemogram (07/09/2023 3:03 AM EDT) [facility] White Blood Cell 6.7 4.0 - 9.5 x10(3)/mc L [facility] Red Blood Cell 3.87(L) 4.00 - 5.21 x10(6)/mc L [facility] Hemoglobin 12.4 11.7 - 15.5 g/dL [facility] Hematocrit 36.8 35.7 - 45.8 % [facility] Mean Cell Volume 95.1(H) 82.6 - 94.4 fL [facility] Mean Cell Hemoglobin 32.0 27.1 - 32.0 pg [facility] Mean Cell Hemoglobin Concentration 33.7 31.7 - 35.0 g/dL [facility] Platelet 209 145 - 357 x10(3)/mc L [facility] RDW Standard Deviation 47.9(H) 37.0 - 46.0 fL [facility] RDW coefficient of variation 13.7 11.5 - 14.1 % [facility] Mean Platelet Volume 10.5 7.6 - 12.9 fL [facility] NRBC% auto 0.0 % [facility] NRBC Absolute 0.000 0.000 - 0.000 x10(3)/mc L [facility] Blood 07/09/2023 3:03 AM EDT 07/09/2023 3:14 AM EDT Narrative Resulting Agency Comment Spec In Lab Terrence Keating MD HEMATOLOGY ORDERABLE S [facility] [place] [address] * Heparin (unfractionated) Level (07/09/2023 3:03 AM EDT) [facility] UF Heparin 0.52 IU/mL [facility] Comment: [...] Lab Ailyn Irvin MD HEMATOLOGY ORDERABLE S [facility] [place] [address] * (ABNORMAL) Basic Metabolic Panel (non-fasting) (07/09/2023 3:03 AM EDT) [facility] Glucose 100 65 - 199 mg/dL [facility] Comment:Diabetes: >=200 mg/d L plus symptoms Blood Urea Nitrogen 12 8 - 18 mg/dL [facility] Creatinine 1.24(H) 0.70 - 1.20 mg/dL [facility] [...] questions. Chloride 104 98 - 107 mmol/L [facility] Carbon Dioxide 22 22 - 31 mmol/L [facility] Anion Gap 12 5 - 15 mmol/L [facility] Calcium 9.3 8.5 - 10.5 mg/dL [facility] Est Glomerular Filtration Rate 52(L) >=60 mL/min/1. 73 m?? [facility] [...] MD CHEMISTRY ORDERABL ES Performing Organization Address City/[facility]/ZIP Co de Phone Number [facility] [place] [place] [address] * Phosphorus (07/09/2023 3:03 AM EDT) Phosphorus 4.5 2.5 - 4.5 mg/dL [facility] Blood 07/09/2023 3:03 AM EDT 07/09/2023 3:14 AM EDT Narrative Resulting Agency Comment Spec In Lab Eufemia Copeland MD CHEMISTRY ORDERABL ES [facility] [place] [address] * Magnesium (07/09/2023 3:03 AM EDT) Magnesium 0.91 0.69 - 1.07 mmol/L [facility] Blood 07/09/2023 3:03 AM EDT 07/09/2023 3:14 AM EDT Narrative Resulting Agency Comment Spec In Lab Eufemia Copeland MD CHEMISTRY ORDERABL ES Performing Organization Address [facility]/ZIP Co de Phone Number [facility] [place] [address] * Heparin (unfractionated) Level (07/08/2023 12:02 PM EDT) Pathologist [facility] UF Heparin 0.45 IU/mL [facility] Comment: [...] ORDERABLE S Performing Organization Address [facility]/ZIP Co de Phone Number [facility] [place] [address] * EKG 12 Lead (07/08/2023 9:58 AM EDT) Ventricular rate 66 BPM MUSE SYSTEM Atrial Rate 66 BPM MUSE SYSTEM P-R Interval 178 ms MUSE SYSTEM QRS Duration 92 ms MUSE SYSTEM Q-T Interval 486 ms MUSE SYSTEM QTC Calculated (Bezet) 509 ms MUSE SYSTEM Calculated P Pinon 29 degrees MUSE SYSTEM Calculated R Pinon 33 degrees MUSE SYSTEM Calculated T [place]on 29 degrees MUSE SYSTEM INTERPRETATION Normal sinus rhythm Nonspecific ST and T wave abnormality Prolonged QT Abnormal ECG When compared with ECG of 04-JUL-2023 11:41, Criteria for Septal infarct are no longer Present I personally reviewed the tracing and edited the fellows interpretation Confirmed by fellow MD Keyshawn, Katalina ([id number]) on 07/08/2023 3:18:07 PM Confirmed by MD Beatriz, Klarissa ([id number]) on 07/09/2023 6:15:21 AM MUSE SYSTEM 07/08/2023 9:58 AM EDT 07/09/2023 6:15 AM EDT Lisa Beck MD ECG ORDERABLES MUSE SYSTEM * Differential, Automated (07/08/2023 5:52 AM EDT) Neutrophil % 60.6 % [facility] Neutrophil Absolute 4.42 1.70 - 6.10 x10(3)/[facility] Lymph % 24.8 % [facility] Lymphocytes Abs 1.8 0.9 - 3.2 x10(3)/[facility] Monocyte % 9.2 % [facility] Monocyte Abs 0.7 0.3 - 0.9 x10(3)/[facility] Eos % 4.5 % [facility] Eosinophils Abs 0.3 0.0 - 0.4 x10(3)/[facility] Basophil % 0.5 % [facility] Baso Absolute 0.0 0.0 - 0.1 x10(3)/[facility] Immature Gran % 0.40 % [facility] Comment: Immature granulocytes(IG's)percentage and absolute count will include metamyelocytes, myelocytes, and promyelocytes. Blood smears from CBCs yielding IG's will be scanned manually for concordance. If this scan disagrees with the automated IG or if promyelocytes are noted, a manual differential will be performed. Immature Gran Absolute 0.03 0.00 - 0.04 x10(3)/[facility] Blood 07/08/2023 5:52 AM EDT 07/08/2023 5:58 AM EDT Narrative Resulting Agency Comment Spec In Lab Terrence Keating MD HEMATOLOGY ORDERABLE S [facility] [place] [address] * (ABNORMAL) Hemogram (07/08/2023 5:52 AM EDT) White Blood Cell 7.3 4.0 - 9.5 x10(3)/mc L [facility] Red Blood Cell 3.94(L) 4.00 - 5.21 x10(6)/mc L [facility] Hemoglobin 12.3 11.7 - 15.5 g/dL [facility] Hematocrit 36.3 35.7 - 45.8 % [facility] Mean Cell Volume 92.1 82.6 - 94.4 fL [facility] Mean Cell Hemoglobin 31.2 27.1 - 32.0 pg [facility] Mean Cell Hemoglobin Concentration 33.9 31.7 - 35.0 g/dL [facility] Platelet 207 145 - 357 x10(3)/mc L [facility] RDW Standard Deviation 44.6 37.0 - 46.0 [facility] RDW coefficient of variation 13.3 11.5 - 14.1 % [facility] Mean Platelet Volume 10.5 7.6 - 12.9 [facility] NRBC% auto 0.0 % [facility] NRBC Absolute 0.000 0.000 - 0.000 x10(3)/mc L [facility] Blood 07/08/2023 5:52 AM EDT 07/08/2023 5:58 AM EDT Narrative Resulting Agency Comment Spec In Lab Terrence Keating MD HEMATOLOGY ORDERABLE S [facility] [place] [address] * Heparin (unfractionated) Level (07/08/2023 5:52 AM EDT) UF Heparin 0.37 IU/mL [facility] Comment: [...] Lab Ailyn Irvin MD HEMATOLOGY ORDERABLE S [facility] [place] [address] * (ABNORMAL) Basic Metabolic Panel (non-fasting) (07/08/2023 5:52 AM EDT) Pathologist [facility] Glucose 102 65 - 199 mg/dL [facility] Comment:Diabetes: >=200 mg/d L plus symptoms Blood Urea Nitrogen 14 8 - 18 mg/dL [facility] Creatinine 1.30(H) 0.70 - 1.20 mg/dL [facility] Sodium 139 135 - 145 mmol/L [facility] Potassium 3.2(L) 3.5 - 5.0 mmol/L [facility] Comment: Please note: ??Patients with WBC >100,000 may have falsely elevated Potassium levels. ??For accurate Potassium quantification in these patients send serum separator tube (gold top) for subsequent determinations. ??Contact the Clinical Chemistry Laboratory if there are any questions. Chloride 101 98 - 107 mmol/L [facility] Carbon Dioxide 25 22 - 31 mmol/L [facility] Anion Gap 13 5 - 15 mmol/L [facility] Calcium 9.3 8.5 - 10.5 mg/dL [facility] Est Glomerular Filtration Rate 49(L) >=60 mL/min/1. 73 m?? [facility] [...] MD CHEMISTRY ORDERABL ES Performing Organization Address City/[facility]/ZIP Co de Phone Number [facility] [address] * Phosphorus (07/08/2023 5:52 AM EDT) Phosphorus 4.3 2.5 - 4.5 mg/dL [facility] Blood 07/08/2023 5:52 AM EDT 07/08/2023 5:58 AM EDT Narrative Resulting Agency Comment Spec In Lab Eufemia Copeland MD CHEMISTRY ORDERABL ES Performing Organization Address City/[facility]/ZIP Co de Phone Number [facility] [address] * Magnesium (07/08/2023 5:52 AM EDT) Magnesium 0.89 0.69 - 1.07 mmol/L [facility] Blood 07/08/2023 5:52 AM EDT 07/08/2023 5:58 AM EDT Narrative Resulting Agency Comment Spec In Lab Eufemia Copeland MD CHEMISTRY ORDERABL ES Performing Organization Address [facility] de Phone Number [facility] [place] [address] * Heparin (unfractionated) Level (07/08/2023 12:00 AM EDT) UF Heparin 0.22 IU/mL [facility] Comment: [...] ORDERABLE S Performing Organization Address [facility] Co de Phone Number [facility] [place] [address] * Specimen to Pathology (07/07/2023 2:55 PM EDT) AP Specimen 07/07/2023 2:55 PM EDT 07/07/2023 2:55 PM EDT Narrative [facility] - 07/07/2023 2:55 PM EDT Specimen requisition ordered. ??Separate Pathology report to follow Terrence Keating MD PATHOLOGY/CYTOLOGY O RDERABLES Performing Organization Address [facility]/ZIP Co de Phone Number [facility] [place] [place] [address] * Specimen to Pathology (07/07/2023 2:38 PM EDT) AP Specimen 07/07/2023 2:38 PM EDT 07/07/2023 2:38 PM EDT Narrative [facility] - 07/07/2023 2:38 PM EDT Specimen requisition ordered. ??Separate Pathology report to follow Terrence Keating MD PATHOLOGY/CYTOLOGY O RUMA Performing Organization Address [facility] [place] [address] * Specimen to Pathology (07/07/2023 2:38 PM EDT) AP Specimen 07/07/2023 2:38 PM EDT 07/07/2023 2:38 PM EDT Narrative [facility] - 07/07/2023 2:38 PM EDT Specimen requisition ordered. ??Separate Pathology report to follow Terrence Keating MD PATHOLOGY/CYTOLOGY O RUMA Performing Organization Address [facility] [place] [address] * Surgical Pathology Report (07/07/2023 2:25 PM EDT) Pathologist [facility] Final Diagnosis [id number] ? [facility]; A The signing pathologist [...] Sapna Verified: ??07/19/2023 13:25 ??Pathologist Performed at: ??-[facility] [place] of [place]ology, [place] [address] Base Manager: Vangie Lu MD, FCAP, ??CLIA Certificate: [id number] SPECIMEN(S) SUBMITTED A - duodenal biopsies rule [...] labeled C1-C2. ??sdy 07/19/2023 1:25 PM EDT [facility] GI Biopsy 07/07/2023 2:25 PM EDT 07/07/2023 2:25 PM EDT GI Biopsy 07/07/2023 2:25 PM EDT 07/07/2023 2:25 PM EDT GI Biopsy 07/07/2023 2:25 PM EDT 07/07/2023 2:25 PM EDT Lashonda Villa MD PATHOLOGY/CYTOLOGY O RDERABLES [facility] [place] [address] * COLONOSCOPY (07/07/2023 1:39 PM EDT) COLONOSCOPY [facility] Procedure Date: 07/07/2023 1:39 PM ? Patient Name: Loida Roque ? N: [id number] ? Date of : 1970 ? Age: 53 ? Order #: [id number] ? Instrument Name: [id number]- [id number] ? Procedure: ? Colonoscopy Indications: ? Abdominal pain, Diarrhea Providers: ? Lashonda Villa MD, [place] ? Systrom, Mercedes Toledo, Bouchra Recinos MD: [...] ? was evaluated using the BBPS ? ([place] Bowel Preparation Scale) ? with scores of: [...] Procedure Code(s): ? --- Professional --- ? 82496, Colonoscopy, flexible; with ? biopsy, single or multiple CPT copyright 2021 [employer]. All rights reserved. The codes documented in this report are preliminary and upon drafter construction review may be revised to meet current [...] GENERAL SURGICAL ORD ERABLES Performing Organization Address City/[facility]/ZIP Co de Phone Number PROVATION * Shiga Toxin Detection (07/07/2023 12:10 PM EDT) Shiga Toxin Assay EIA Negative for Shiga Toxin 1 EIA Negative for Shiga Toxin 2 [facility] Stool 07/07/2023 12:1 0 PM EDT 07/07/2023 12:53 PM EDT Narrative Resulting Agency Comment Spec In Lab Ailyn Irvin MD MICROBIOLOGY - GENER AL ORDERABLES Performing Organization Address City/[facility]/ZIP Co de Phone Number [facility] [place] [address] * Campylobacter Antigen (07/07/2023 12:10 PM EDT) Campylobacter Ag Immunoassay Negative for Campylobacter Antigen [facility] Stool 07/07/2023 12:1 0 PM EDT 07/07/2023 12:53 PM EDT Narrative Resulting Agency Comment Spec In Lab Ailyn Irvin MD MICROBIOLOGY - GENER AL ORDERABLES Performing Organization Address City/[facility]/ZIP Co de Phone Number [facility] [place] [address] * Stool culture (07/07/2023 12:10 PM EDT) Stool Culture No enteric pathogens isolated [facility] Stool 07/07/2023 12:1 0 PM EDT 07/07/2023 12:53 PM EDT Narrative Resulting Agency Comment Spec In Lab Ailyn Irvin MD MICROBIOLOGY - GENER AL ORDERABLES Performing Organization Address [facility] de Phone Number [facility] [place] [address] * (ABNORMAL) Differential, Automated (07/07/2023 3:51 AM EDT) Neutrophil % 58.9 % [facility] Neutrophil Absolute 4.67 1.70 - 6.10 x10(3)/mc L [facility] Lymph % 24.8 % [facility] Lymphocytes Abs 2.0 0.9 - 3.2 x10(3)/mc L [facility] Monocyte % 9.4 % [facility] Monocyte Abs 0.7 0.3 - 0.9 x10(3)/mc L [facility] Eos % 6.1 % [facility] Eosinophils Abs 0.5(H) 0.0 - 0.4 x10(3)/mc L [facility] Basophil % 0.5 % [facility] Baso Absolute 0.0 0.0 - 0.1 x10(3)/mc L [facility] Immature Gran % 0.30 % [facility] Comment: Immature granulocytes(IG's)percentage and absolute count will include metamyelocytes, myelocytes, and promyelocytes. Blood smears from CBCs yielding IG's will be scanned manually for concordance. If this scan disagrees with the automated IG or if promyelocytes are noted, a manual differential will be performed. Immature Gran Absolute 0.02 0.00 - 0.04 x10(3)/mc L [facility] Blood 07/07/2023 3:51 AM EDT 07/07/2023 4:08 AM EDT Narrative Resulting Agency Comment Spec In Lab Terrence Keating MD HEMATOLOGY ORDERABLE S [facility] [place] [address] * Hemogram (07/07/2023 3:51 AM EDT) White Blood Cell 7.9 4.0 - 9.5 x10(3)/[facility] Red Blood Cell 4.42 4.00 - 5.21 x10(6)/[facility] Hemoglobin 13.8 11.7 - 15.5 g/dL [facility] Hematocrit 41.0 35.7 - 45.8 % [facility] Mean Cell Volume 92.8 82.6 - 94.4 fL [facility] Mean Cell Hemoglobin 31.2 27.1 - 32.0 pg [facility] Mean Cell Hemoglobin Concentration 33.7 31.7 - 35.0 g/dL [facility] Platelet 255 145 - 357 x10(3)/[facility] RDW Standard Deviation 44.8 37.0 - 46.0 [facility] RDW coefficient of variation 13.2 11.5 - 14.1 % [facility] Mean Platelet Volume 10.6 7.6 - 12.9 fL [facility] NRBC% auto 0.0 % [facility] NRBC Absolute 0.000 0.000 - 0.000 x10(3)/[facility] Blood 07/07/2023 3:51 AM EDT 07/07/2023 4:08 AM EDT Narrative Resulting Agency Comment Spec In Lab Terrence Keating MD HEMATOLOGY ORDERABLE S Performing Organization Address [facility] Co de Phone Number [facility] [place] [address] * Heparin (unfractionated) Level (07/07/2023 3:51 AM EDT) UF Heparin 0.33 IU/mL [facility] Comment: [...] ORDERABLE S Performing Organization Address [facility]/ZIP Co de Phone Number [facility] [place] [address] * (ABNORMAL) Basic Metabolic Panel (non-fasting) (07/07/2023 3:51 AM EDT) Glucose 101 65 - 199 mg/dL [facility] Comment:Diabetes: >=200 mg/d L plus symptoms Blood Urea Nitrogen 18 8 - 18 mg/dL [facility] Creatinine 1.30(H) 0.70 - 1.20 mg/dL [facility] Sodium 135 135 - 145 mmol/L [facility] Potassium 3.5 3.5 - 5.0 mmol/L [facility] Comment: Please note: ??Patients with WBC >100,000 may have falsely elevated Potassium levels. ??For accurate Potassium quantification in these patients send serum separator tube (gold top) for subsequent determinations. ??Contact the Clinical Chemistry Laboratory if there are any questions. Chloride 96(L) 98 - 107 mmol/L [facility] Carbon Dioxide 23 22 - 31 mmol/L [facility] Anion Gap 16(H) 5 - 15 mmol/L [facility] Calcium 9.4 8.5 - 10.5 mg/dL [facility] Est Glomerular Filtration Rate 49(L) >=60 mL/min/1. 73 m?? [facility] [...] Lab Eufemia Copeland MD CHEMISTRY ORDERABL ES [facility] [place] [place] [address] * Phosphorus (07/07/2023 3:51 AM EDT) Phosphorus 4.0 2.5 - 4.5 mg/dL [facility] Blood 07/07/2023 3:51 AM EDT 07/07/2023 4:08 AM EDT Narrative Resulting Agency Comment Spec In Lab Eufemia Copeland MD CHEMISTRY ORDERABL ES Performing Organization Address [facility] Co de Phone Number [facility] [place] [place] [address] * Magnesium (07/07/2023 3:51 AM EDT) [facility] Magnesium 0.87 0.69 - 1.07 mmol/L [facility] Blood 07/07/2023 3:51 AM EDT 07/07/2023 4:08 AM EDT Narrative Resulting Agency Comment Spec In Lab Eufemia Copeland MD CHEMISTRY ORDERABL ES Performing Organization Address [facility] Phone Number [facility] [place] [place] [address] * Hepatic Function Panel (07/07/2023 3:51 AM EDT) [facility] Protein, Total 7.5 6.1 - 8.0 g/dL [facility] Albumin 4.4 3.2 - 5.2 g/dL [facility] Aspartate Aminotransferase 15 0 - 30 unit/L [facility] Alanine Aminotransferase 20 0 - 30 unit/L [facility] Alkaline Phosphatase 54 35 - 105 unit/L [facility] Bilirubin, Total 0.4 0.2 - 1.3 mg/dL [facility] Bilirubin, Direct 0.1 0.0 - 0.3 mg/dL [facility] Blood 07/07/2023 3:51 AM EDT 07/07/2023 4:08 AM EDT Narrative Resulting Agency Comment Spec In Lab Ailyn Irvin MD CHEMISTRY ORDERABLES Performing Organization Address [facility] Co de Phone Number [facility] [place] [address] * Giardia/Cryptosporidium Antigens (MC/CGP/APD/NLH) (07/07/2023 12:38 AM EDT) Giardia Antigen Negative Negative [facility] Comment:Examination for othe r intestinal parasites requires foreign travel history. Cryptosporidium Antigen Negative Negative [facility] Stool 07/07/2023 12:3 8 AM EDT 07/07/2023 7:56 AM EDT Narrative Resulting Agency Comment Spec In Lab Ailyn Irvin MD MICROBIOLOGY - GENER AL ORDERABLES [facility] [place] [address] * Hepatic Function Panel (07/06/2023 3:41 PM EDT) Protein, Total 7.6 6.1 - 8.0 g/dL [facility] Albumin 4.3 3.2 - 5.2 g/dL [facility] Aspartate Aminotransferase 20 0 - 30 unit/L [facility] Alanine Aminotransferase 22 0 - 30 unit/L [facility] Alkaline Phosphatase 58 35 - 105 unit/L [facility] Bilirubin, Total 0.4 0.2 - 1.3 mg/dL [facility] Bilirubin, Direct 0.1 0.0 - 0.3 mg/dL [facility] Blood 07/06/2023 3:41 PM EDT 07/06/2023 4:00 PM EDT Narrative Resulting Agency Comment Spec In Lab Terrence Keating MD CHEMISTRY ORDERABLES Performing Organization Address City/[facility]/ZIP Co de Phone Number [facility] [place] [address] * Hepatic Function Panel (07/06/2023 3:54 AM EDT) Protein, Total 7.6 6.1 - 8.0 g/dL [facility] Albumin 4.3 3.2 - 5.2 g/dL [facility] Aspartate Aminotransferase Not Perf 0 - 30 [facility] Comment: Unable to quantitate due to sample hemolysis. ??Sample redraw suggested. Called by: abimbola, Read back by: Ana Paula Borja, Date/Time:07/06/23 14:08. Alanine Aminotransferase 25 0 - 30 unit/L [facility] Alkaline Phosphatase 58 35 - 105 unit/L [facility] Bilirubin, Total 0.4 0.2 - 1.3 mg/dL [facility] Bilirubin, Direct Not Perf 0.0 - 0.[address] [facility] Blood Venous Draw / Unknown 07/06/2023 3:54 AM EDT 07/06/2023 4:18 AM EDT Narrative Resulting Agency Comment Spec In Lab Terrence Keating MD CHEMISTRY ORDERABLES [facility] [place] [address] * (ABNORMAL) Differential, Automated (07/06/2023 3:54 AM EDT) Neutrophil % 56.6 % [facility] Neutrophil Absolute 4.34 1.70 - 6.10 x10(3)/mc L [facility] Lymph % 26.1 % [facility] Lymphocytes Abs 2.0 0.9 - 3.2 x10(3)/mc L [facility] Monocyte % 9.6 % [facility] Monocyte Abs 0.7 0.3 - 0.9 x10(3)/mc L [facility] Eos % 6.6 % [facility] Eosinophils Abs 0.5(H) 0.0 - 0.4 x10(3)/mc L [facility] Basophil % 0.7 % [facility] Baso Absolute 0.0 0.0 - 0.1 x10(3)/mc L [facility] Immature Gran % 0.40 % [facility] Comment: Immature granulocytes(IG's)percentage and absolute count will include metamyelocytes, myelocytes, and promyelocytes. Blood smears from CBCs yielding IG's will be scanned manually for concordance. If this scan disagrees with the automated IG or if promyelocytes are noted, a manual differential will be performed. Immature Gran Absolute 0.03 0.00 - 0.04 x10(3)/mc L [facility] Blood 07/06/2023 3:54 AM EDT 07/06/2023 4:12 AM EDT Narrative Resulting Agency Comment Spec In Lab Terrence Keating MD HEMATOLOGY ORDERABLE S [facility] [address] * (ABNORMAL) Hemogram (07/06/2023 3:54 AM EDT) White Blood Cell 7.7 4.0 - 9.5 x10(3)/mc L [facility] Red Blood Cell 4.62 4.00 - 5.21 x10(6)/mc L [facility] Hemoglobin 14.7 11.7 - 15.5 g/dL [facility] Hematocrit 43.8 35.7 - 45.8 % [facility] Mean Cell Volume 94.8(H) 82.6 - 94.4 fL [facility] Mean Cell Hemoglobin 31.8 27.1 - 32.0 pg [facility] Mean Cell Hemoglobin Concentration 33.6 31.7 - 35.0 g/dL [facility] Platelet 243 145 - 357 x10(3)/mc L [facility] RDW Standard Deviation 47.2(H) 37.0 - 46.0 fL [facility] RDW coefficient of variation 13.5 11.5 - 14.1 % [facility] Mean Platelet Volume 10.4 7.6 - 12.9 fL [facility] NRBC% auto 0.0 % [facility] NRBC Absolute 0.000 0.000 - 0.000 x10(3)/mc L [facility] Blood 07/06/2023 3:54 AM EDT 07/06/2023 4:12 AM EDT Narrative Resulting Agency Comment Spec In Lab Terrence Keating MD HEMATOLOGY ORDERABLE S [facility] [address] * (ABNORMAL) Basic Metabolic Panel (non-fasting) (07/06/2023 3:54 AM EDT) Glucose 107 65 - 199 mg/dL [facility] Comment:Diabetes: >=200 mg/d L plus symptoms Blood Urea Nitrogen 16 8 - 18 mg/dL [facility] Creatinine 1.25(H) 0.70 - 1.20 mg/dL [facility] Sodium 135 135 - 145 mmol/L [facility] Potassium 3.9 3.5 - 5.0 mmol/L [facility] Comment: Please note: ??Patients with WBC >100,000 may have falsely elevated Potassium levels. ??For accurate Potassium quantification in these patients send serum separator tube (gold top) for subsequent determinations. ??Contact the Clinical Chemistry Laboratory if there are any questions. Chloride 98 98 - 107 mmol/L [facility] Carbon Dioxide 23 22 - 31 mmol/L [facility] Anion Gap 14 5 - 15 mmol/L [facility] Calcium 10.0 8.5 - 10.5 mg/dL [facility] Est Glomerular Filtration Rate 51(L) >=60 mL/min/1. 73 m?? [facility] [...] ORDERABL ES Performing Organization Address [facility] Co de Phone Number [facility] [place] [address] * Phosphorus (07/06/2023 3:54 AM EDT) Phosphorus 4.5 2.5 - 4.5 mg/dL [facility] Blood 07/06/2023 3:54 AM EDT 07/06/2023 4:18 AM EDT Narrative Resulting Agency Comment Spec In Lab Eufemia Copeland MD CHEMISTRY ORDERABL ES Performing Organization Address [facility] Co de Phone Number [facility] [place] [address] * Magnesium (07/06/2023 3:54 AM EDT) Magnesium 0.97 0.69 - 1.07 mmol/L [facility] Blood 07/06/2023 3:54 AM EDT 07/06/2023 4:18 AM EDT Narrative Resulting Agency Comment Spec In Lab Eufemia Copeland MD CHEMISTRY ORDERABL ES Performing Organization Address [facility] Co de Phone Number [facility] [place] [address] * Heparin (unfractionated) Level (07/06/2023 3:54 AM EDT) UF Heparin 0.31 IU/mL [facility] Comment: [...] [facility] [place]/ZIP Co de Phone Number [facility] [place] [place] [address] * Amylase (07/05/2023 5:44 PM EDT) Amylase 35 28 - 100 unit/L [facility] Blood 07/05/2023 5:44 PM EDT 07/05/2023 6:00 PM EDT Narrative Resulting Agency Comment Spec In Lab Terrence Keating MD CHEMISTRY ORDERABLES Performing Organization Address [facility] Co de Phone Number [facility] [place] [address] * Lipase (07/05/2023 5:44 PM EDT) Lipase 17 0 - 60 unit/L [facility] Blood 07/05/2023 5:44 PM EDT 07/05/2023 6:00 PM EDT Narrative Resulting Agency Comment Spec In Lab Terrence Keating MD CHEMISTRY ORDERABLES Performing Organization Address [facility]/ZIP Co de Phone Number [facility] [place] [address] * (ABNORMAL) Basic Metabolic Panel (non-fasting) (07/05/2023 5:44 PM EDT) Glucose 130 65 - 199 mg/dL [facility] Comment:Diabetes: >=200 mg/d L plus symptoms Blood Urea Nitrogen 17 8 - 18 mg/dL [facility] Creatinine 1.30(H) 0.70 - 1.20 mg/dL [facility] Sodium 134(L) 135 - 145 mmol/L [facility] Potassium 3.7 3.5 - 5.0 mmol/L [facility] Comment: Please note: ??Patients with WBC >100,000 may have falsely elevated Potassium levels. ??For accurate Potassium quantification in these patients send serum separator tube (gold top) for subsequent determinations. ??Contact the Clinical Chemistry Laboratory if there are any questions. Chloride 98 98 - 107 mmol/L [facility] Carbon Dioxide 21(L) 22 - 31 mmol/L [facility] Anion Gap 15 5 - 15 mmol/L [facility] Calcium 9.6 8.5 - 10.5 mg/dL [facility] Est Glomerular Filtration Rate 49(L) >=60 mL/min/1. 73 m?? [facility] [...] In Lab Terrence Keating MD CHEMISTRY ORDERABLES [facility] [place] [address] * Duplex Study Visceral Arteries, Comp (07/05/2023 9:46 AM EDT) VB Text Report Department: Vascular Surgery Lab Patient: [id number] (LOIDA ROQUE) CPT: [id number] Referring Physician: TERRENCE KEATING ?? Phone: Indications: [...] ?Bi-Triphasic ?101 ?11 ?? Hepatic Artery ? [place]-Biphasic ? 123 ?23 ?? Splenic Artery ? [place]-Biphasic ? 122 ?24 ?? Inf Mes Artery [...] 5:05 AM EDT) Neutrophil % 63.0 % [facility] Neutrophil Absolute 5.59 1.70 - 6.10 x10(3)/[facility] Lymph % 22.4 % [facility] Lymphocytes Abs 2.0 0.9 - 3.2 x10(3)/[facility] Monocyte % 9.7 % [facility] Monocyte Abs 0.9 0.3 - 0.9 x10(3)/[facility] Eos % 4.1 % [facility] Eosinophils Abs 0.4 0.0 - 0.4 x10(3)/[facility] Basophil % 0.6 % [facility] Baso Absolute 0.0 0.0 - 0.1 x10(3)/[facility] Immature Gran % 0.20 % [facility] Comment: Immature granulocytes(IG's)percentage and absolute count will include metamyelocytes, myelocytes, and promyelocytes. Blood smears from CBCs yielding IG's will be scanned manually for concordance. If this scan disagrees with the automated IG or if promyelocytes are noted, a manual differential will be performed. Immature Gran Absolute 0.02 0.00 - 0.04 x10(3)/mcL [facility] Blood 07/05/2023 5:05 AM EDT 07/05/2023 5:17 AM EDT Narrative Resulting Agency Comment Spec In Lab Terrence Keating MD HEMATOLOGY ORDERABLE S [facility] [place] [address] * (ABNORMAL) Hemogram (07/05/2023 5:05 AM EDT) White Blood Cell 8.9 4.0 - 9.5 x10(3)/mc L [facility] Red Blood Cell 4.42 4.00 - 5.21 x10(6)/mc L [facility] Hemoglobin 13.7 11.7 - 15.5 g/dL [facility] Hematocrit 41.4 35.7 - 45.8 % [facility] Mean Cell Volume 93.7 82.6 - 94.4 fL [facility] Mean Cell Hemoglobin 31.0 27.1 - 32.0 pg [facility] Mean Cell Hemoglobin Concentration 33.1 31.7 - 35.0 g/dL [facility] Platelet 245 145 - 357 x10(3)/mc L [facility] RDW Standard Deviation 47.1(H) 37.0 - 46.0 fL [facility] RDW coefficient of variation 13.7 11.5 - 14.1 % [facility] Mean Platelet Volume 10.8 7.6 - 12.9 fL [facility] NRBC% auto 0.0 % [facility] NRBC Absolute 0.000 0.000 - 0.000 x10(3)/mc L [facility] Blood 07/05/2023 5:05 AM EDT 07/05/2023 5:17 AM EDT Narrative Resulting Agency Comment Spec In Lab Terrence Keating MD HEMATOLOGY ORDERABLE S Performing Organization Address City/[facility]/ZIP Co de Phone Number [facility] [place] [address] * Heparin (unfractionated) Level (07/05/2023 5:05 AM EDT) UF Heparin 0.35 IU/mL [facility] Comment: [...] [facility] [place]/ZIP Co de Phone Number [facility] [place] [address] * (ABNORMAL) Basic Metabolic Panel (non-fasting) (07/05/2023 5:05 AM EDT) Glucose 114 65 - 199 mg/dL [facility] Comment:Diabetes: >=200 mg/d L plus symptoms Blood Urea Nitrogen 19(H) 8 - 18 mg/dL [facility] Creatinine 1.51(H) 0.70 - 1.20 mg/dL [facility] Sodium 134(L) 135 - 145 mmol/L [facility] Potassium 3.8 3.5 - 5.0 mmol/L [facility] Comment: Please note: ??Patients with WBC >100,000 may have falsely elevated Potassium levels. ??For accurate Potassium quantification in these patients send serum separator tube (gold top) for subsequent determinations. ??Contact the Clinical Chemistry Laboratory if there are any questions. Chloride 97(L) 98 - 107 mmol/L [facility] Carbon Dioxide 25 22 - 31 mmol/L [facility] Anion Gap 12 5 - 15 mmol/L [facility] Calcium 10.0 8.5 - 10.5 mg/dL [facility] Est Glomerular Filtration Rate 41(L) >=60 mL/min/1. 73 m?? [facility] [...] Lab Eufemia Copeland MD CHEMISTRY ORDERABL ES [facility] [place] [address] * (ABNORMAL) Phosphorus (07/05/2023 5:05 AM EDT) Phosphorus 5.0(H) 2.5 - 4.5 mg/dL [facility] [facility] Blood 07/05/2023 5:05 AM EDT 07/05/2023 5:17 AM EDT Narrative Resulting Agency Comment Spec In Lab Eufemia Copeland MD CHEMISTRY ORDERABL ES Performing Organization Address [facility] Co de Phone Number [facility] [place] [address] * Magnesium (07/05/2023 5:05 AM EDT) Magnesium 1.01 0.69 - 1.07 mmol/L [facility] Blood 07/05/2023 5:05 AM EDT 07/05/2023 5:17 AM EDT Narrative Resulting Agency Comment Spec In Lab Eufemia Copeland MD CHEMISTRY ORDERABL ES Performing Organization Address [facility] Co de Phone Number [facility] [place] [address] * EKG 12 Lead (07/04/2023 11:41 AM EDT) Ventricular rate 76 BPM MUSE SYSTEM Atrial Rate 76 BPM MUSE SYSTEM P-R Interval 174 ms MUSE SYSTEM QRS Duration 88 ms MUSE SYSTEM Q-T Interval 450 ms MUSE SYSTEM QTC Calculated (Bezet) 506 ms MUSE SYSTEM Calculated P Pinon 36 degrees MUSE SYSTEM Calculated R Pinon 35 degrees MUSE SYSTEM Calculated T Pinon 37 degrees MUSE SYSTEM INTERPRETATION Normal sinus rhythm Possible Left atrial enlargement Septal infarct , age undetermined Prolonged QT Abnormal ECG When compared with ECG of 03-JUL-2023 21:36, ST no longer depressed in Anterior leads Nonspecific T wave abnormality now evident in Anterior leads Confirmed by MD Hendreson Katharine ([id number]) on 07/05/2023 6:21:29 AM MUSE SYSTEM 07/04/2023 11:4 1 AM EDT 07/05/2023 6:21 AM EDT Lisa Beck MD ECG ORDERABLES Performing Organization Address City/[facility]/ZIP Co de Phone Number MUSE SYSTEM * Differential, Automated (07/04/2023 3:47 AM EDT) Neutrophil % 63.5 % [facility] Neutrophil Absolute 5.19 1.70 - 6.10 x10(3)/[facility] Lymph % 24.4 % [facility] Lymphocytes Abs 2.0 0.9 - 3.2 x10(3)/[facility] Monocyte % 8.1 % [facility] Monocyte Abs 0.7 0.3 - 0.9 x10(3)/[facility] Eos % 3.4 % [facility] Eosinophils Abs 0.3 0.0 - 0.4 x10(3)/[facility] Basophil % 0.4 % [facility] Baso Absolute 0.0 0.0 - 0.1 x10(3)/[facility] Immature Gran % 0.20 % [facility] Comment: Immature granulocytes(IG's)percentage and absolute count will include metamyelocytes, myelocytes, and promyelocytes. Blood smears from CBCs yielding IG's will be scanned manually for concordance. If this scan disagrees with the automated IG or if promyelocytes are noted, a manual differential will be performed. Immature Gran Absolute 0.02 0.00 - 0.04 x10(3)/[facility] Blood 07/04/2023 3:47 AM EDT 07/04/2023 4:15 AM EDT Narrative Resulting Agency Comment Spec In Lab Terrence Keating MD HEMATOLOGY ORDERABLE S [facility] [place] [address] * (ABNORMAL) Hemogram (07/04/2023 3:47 AM EDT) White Blood Cell 8.2 4.0 - 9.5 x10(3)/[facility] Red Blood Cell 4.26 4.00 - 5.21 x10(6)/mc L [facility] Hemoglobin 13.5 11.7 - 15.5 g/dL [facility] Hematocrit 40.0 35.7 - 45.8 % [facility] Mean Cell Volume 93.9 82.6 - 94.4 fL [facility] Mean Cell Hemoglobin 31.7 27.1 - 32.0 pg [facility] Mean Cell Hemoglobin Concentration 33.8 31.7 - 35.0 g/dL [facility] Platelet 219 145 - 357 x10(3)/mc L [facility] RDW Standard Deviation 47.0(H) 37.0 - 46.0 fL [facility] RDW coefficient of variation 13.7 11.5 - 14.1 % [facility] Mean Platelet Volume 11.0 7.6 - 12.9 fL [facility] NRBC% auto 0.0 % [facility] NRBC Absolute 0.000 0.000 - 0.000 x10(3)/mc L [facility] Blood 07/04/2023 3:47 AM EDT 07/04/2023 4:15 AM EDT Narrative Resulting Agency Comment Spec In Lab Terrence Keating MD HEMATOLOGY ORDERABLE S Performing Organization Address City/State/[facility] Co de Phone Number [facility] [place] [address] * Heparin (unfractionated) Level (07/04/2023 3:47 AM EDT) UF Heparin 0.44 IU/mL [facility] Comment: [...] Lab Ailyn Irvin MD HEMATOLOGY ORDERABLE S [facility] [place] [address] * (ABNORMAL) Basic Metabolic Panel (non-fasting) (07/04/2023 3:47 AM EDT) Glucose 104 65 - 199 mg/dL [facility] Comment:Diabetes: >=200 mg/d L plus symptoms Blood Urea Nitrogen 16 8 - 18 mg/dL [facility] Creatinine 1.28(H) 0.70 - 1.20 mg/dL [facility] Sodium 139 135 - 145 mmol/L [facility] Potassium 3.8 3.5 - 5.0 mmol/L [facility] Comment: Please note: ??Patients with WBC >100,000 may have falsely elevated Potassium levels. ??For accurate Potassium quantification in these patients send serum separator tube (gold top) for subsequent determinations. ??Contact the Clinical Chemistry Laboratory if there are any questions. Chloride 102 98 - 107 mmol/L [facility] Carbon Dioxide 21(L) 22 - 31 mmol/L [facility] Anion Gap 16(H) 5 - 15 mmol/L [facility] Calcium 9.5 8.5 - 10.5 mg/dL [facility] Est Glomerular Filtration Rate 50(L) >=60 mL/min/1. 73 m?? [facility] [...] ORDERABL ES Performing Organization Address [facility] Co de Phone Number [facility] [place] [address] * (ABNORMAL) Phosphorus (07/04/2023 3:47 AM EDT) Phosphorus 4.9(H) 2.5 - 4.5 mg/dL [facility] Blood 07/04/2023 3:47 AM EDT 07/04/2023 4:15 AM EDT Narrative Resulting Agency Comment Spec In Lab Eufemia Copeland MD CHEMISTRY ORDERABL ES Performing Organization Address [facility] Co de Phone Number [facility] [place] [address] * Magnesium (07/04/2023 3:47 AM EDT) Magnesium 1.05 0.69 - 1.07 mmol/L [facility] Blood 07/04/2023 3:47 AM EDT 07/04/2023 4:15 AM EDT Narrative Resulting Agency Comment Spec In Lab Eufemia Copeland MD CHEMISTRY ORDERABL ES Performing Organization Address [facility] Co de Phone Number [facility] [place] [address] * EKG 12 Lead (07/03/2023 9:36 PM EDT) Ventricular rate 61 BPM MUSE SYSTEM Atrial Rate 61 BPM MUSE SYSTEM P-R Interval 188 ms MUSE SYSTEM QRS Duration 88 ms MUSE SYSTEM Q-T Interval 512 ms MUSE SYSTEM QTC Calculated (Bezet) 515 ms MUSE SYSTEM Calculated P Pinon 56 degrees MUSE SYSTEM Calculated R Pinon 69 degrees MUSE SYSTEM Calculated T Pinon 29 degrees MUSE SYSTEM INTERPRETATION Normal sinus [...] * Magnesium (07/03/2023 6:00 PM EDT) Pathologist [facility] Magnesium 0.89 0.69 - 1.07 mmol/L [facility] Blood 07/03/2023 6:00 PM EDT 07/03/2023 6:07 PM EDT Narrative Resulting Agency Comment Spec In Lab Lino Calles MD CHEMISTRY ORDERABLES [facility] [place] [address] * (ABNORMAL) Basic Metabolic Panel (non-fasting) (07/03/2023 6:00 PM EDT) Pathologist [facility] Glucose 116 65 - 199 mg/dL [facility] Comment:Diabetes: >=200 mg/d L plus symptoms Blood Urea Nitrogen 16 8 - 18 mg/dL [facility] Creatinine 1.37(H) 0.70 - 1.20 mg/dL [facility] Sodium 137 135 - 145 mmol/L [facility] Potassium 4.1 3.5 - 5.0 mmol/L [facility] Comment: Please note: ??Patients with WBC >100,000 may have falsely elevated Potassium levels. ??For accurate Potassium quantification in these patients send serum separator tube (gold top) for subsequent determinations. ??Contact the Clinical Chemistry Laboratory if there are any questions. Chloride 102 98 - 107 mmol/L [facility] Carbon Dioxide 21(L) 22 - 31 mmol/L [facility] Anion Gap 14 5 - 15 mmol/L [facility] Calcium 9.5 8.5 - 10.5 mg/dL [facility] Est Glomerular Filtration Rate 46(L) >=60 mL/min/1. 73 m?? 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 Lino Calles MD IMG DX ORDERABLES * Arterial Duplex Leg, Unil (07/03/2023 9:34 AM EDT) VB Text Report Department: Vascular Surgery Lab Patient: [id number] (LOIDA ROQUE) CPT: [id number] Referring Physician: LINO CALLES ?? Phone: Indications: [...] 3:07 AM EDT) Neutrophil % 67.2 % [facility] Neutrophil Absolute 5.51 1.70 - 6.10 x10(3)/mcL [facility] Lymph % 20.7 % [facility] Lymphocytes Abs 1.7 0.9 - 3.2 x10(3)/[facility] Monocyte % 7.7 % [facility] Monocyte Abs 0.6 0.3 - 0.9 x10(3)/[facility] Eos % 3.7 % [facility] Eosinophils Abs 0.3 0.0 - 0.4 x10(3)/[facility] Basophil % 0.5 % [facility] Baso Absolute 0.0 0.0 - 0.1 x10(3)/[facility] Immature Gran % 0.20 % [facility] Comment: Immature granulocytes(IG's)percentage and absolute count will include metamyelocytes, myelocytes, and promyelocytes. Blood smears from CBCs yielding IG's will be scanned manually for concordance. If this scan disagrees with the automated IG or if promyelocytes are noted, a manual differential will be performed. Immature Gran Absolute 0.02 0.00 - 0.04 x10(3)/[facility] Blood 07/03/2023 3:07 AM EDT 07/03/2023 3:15 AM EDT Narrative Resulting Agency Comment Spec In Lab Terrence Keating MD HEMATOLOGY ORDERABLE S Performing Organization Address City/State/[facility] Co de Phone Number [facility] [place] [address] * (ABNORMAL) Hemogram (07/03/2023 3:07 AM EDT) White Blood Cell 8.2 4.0 - 9.5 x10(3)/mc L [facility] Red Blood Cell 3.97(L) 4.00 - 5.21 x10(6)/mc L [facility] Hemoglobin 12.5 11.7 - 15.5 g/dL [facility] Hematocrit 38.5 35.7 - 45.8 % [facility] Mean Cell Volume 97.0(H) 82.6 - 94.4 fL [facility] Mean Cell Hemoglobin 31.5 27.1 - 32.0 pg [facility] Mean Cell Hemoglobin Concentration 32.5 31.7 - 35.0 g/dL [facility] Platelet 203 145 - 357 x10(3)/mc L [facility] RDW Standard Deviation 49.6(H) 37.0 - 46.0 fL [facility] RDW coefficient of variation 13.7 11.5 - 14.1 % [facility] Mean Platelet Volume 10.8 7.6 - 12.9 fL [facility] NRBC% auto 0.0 % [facility] NRBC Absolute 0.000 0.000 - 0.000 x10(3)/mc L [facility] Blood 07/03/2023 3:07 AM EDT 07/03/2023 3:15 AM EDT Narrative Resulting Agency Comment Spec In Lab Terrence Keating MD HEMATOLOGY ORDERABLE S [facility] [place] [address] * Heparin (unfractionated) Level (07/03/2023 3:07 AM EDT) UF Heparin 0.49 IU/mL [facility] Comment: [...] Lab Ailyn Irvin MD HEMATOLOGY ORDERABLE S [facility] [place] [address] * (ABNORMAL) Basic Metabolic Panel (non-fasting) (07/03/2023 3:07 AM EDT) Glucose 104 65 - 199 mg/dL [facility] Comment:Diabetes: >=200 mg/d L plus symptoms Blood Urea Nitrogen 16 8 - 18 mg/dL [facility] Creatinine 1.20 0.70 - 1.20 mg/dL [facility] [...] questions. Chloride 107 98 - 107 mmol/L [facility] Carbon Dioxide 20(L) 22 - 31 mmol/L [facility] Anion Gap 11 5 - 15 mmol/L [facility] Calcium 8.8 8.5 - 10.5 mg/dL [facility] Est Glomerular Filtration Rate 54(L) >=60 mL/min/1. 73 m?? [facility] [...] ORDERABL ES Performing Organization Address [facility] Co de Phone Number [facility] [place] [address] * Phosphorus (07/03/2023 3:07 AM EDT) Phosphorus 3.6 2.5 - 4.5 mg/dL [facility] Blood 07/03/2023 3:07 AM EDT 07/03/2023 3:15 AM EDT Narrative Resulting Agency Comment Spec In Lab Eufemia Copeland MD CHEMISTRY ORDERABL ES Performing Organization Address [facility] Co de Phone Number [facility] [place] [address] * Magnesium (07/03/2023 3:07 AM EDT) Magnesium 0.93 0.69 - 1.07 mmol/L [facility] Blood 07/03/2023 3:07 AM EDT 07/03/2023 3:15 AM EDT Narrative Resulting Agency Comment Spec In Lab Eufemia Copeland MD CHEMISTRY ORDERABL ES Performing Organization Address [facility] Co de Phone Number [facility] [place] [address] * Heparin (unfractionated) Level (07/02/2023 8:58 PM EDT) UF Heparin 0.60 IU/mL [facility] Comment: [...] Lab Lino Calles MD HEMATOLOGY ORDERABLE S [facility] [place] [address] * VS Arteriogram Mesenteric Vascular Surgery (07/02/2023 [...] anesthetic: 10 cc 1% lidocaine Heparin: Yes [id number] ?? Units Protamine: No ??mg Antibiotics: Ancef [...] We exchanged the sheath for a 7 [place] missing persons investigator steerable sheath over a stiff wire. ??A Glidewire and Kumpe catheter were used to selectively cannulate the superior mesenteric artery. ??Direct angiography of the superior mesenteric artery was performed, confirming the results of the nonselective aortography performed. ??The lesion was predilated with a 4 mm x 40 mm [place] balloon, and then a 6 mm X [...] MD 07/07/2023 10:48 AM Ailyn Irvin MD [facility] IR ORDERABLES * Differential, Automated (07/02/2023 3:58 AM EDT) Neutrophil % 61.3 % [facility] Neutrophil Absolute 4.67 1.70 - 6.10 x10(3)/[facility] Lymph % 27.6 % [facility] Lymphocytes Abs 2.1 0.9 - 3.2 x10(3)/[facility] Monocyte % 6.4 % [facility] Monocyte Abs 0.5 0.3 - 0.9 x10(3)/[facility] Eos % 3.9 % [facility] Eosinophils Abs 0.3 0.0 - 0.4 x10(3)/[facility] Basophil % 0.5 % [facility] Baso Absolute 0.0 0.0 - 0.1 x10(3)/[facility] Immature Gran % 0.30 % [facility] Comment: Immature granulocytes(IG's)percentage and absolute count will include metamyelocytes, myelocytes, and promyelocytes. Blood smears from CBCs yielding IG's will be scanned manually for concordance. If this scan disagrees with the automated IG or if promyelocytes are noted, a manual differential will be performed. Immature Gran Absolute 0.02 0.00 - 0.04 x10(3)/[facility] Blood 07/02/2023 3:58 AM EDT 07/02/2023 4:14 AM EDT Narrative Resulting Agency Comment Spec In Lab Terrence Keating MD HEMATOLOGY ORDERABLE S [facility] [place] [address] * (ABNORMAL) Hemogram (07/02/2023 3:58 AM EDT) White Blood Cell 7.6 4.0 - 9.5 x10(3)/mc L [facility] Red Blood Cell 4.12 4.00 - 5.21 x10(6)/ L [facility] Hemoglobin 12.9 11.7 - 15.5 g/dL [facility] Hematocrit 39.5 35.7 - 45.8 % [facility] Mean Cell Volume 95.9(H) 82.6 - 94.4 fL [facility] Mean Cell Hemoglobin 31.3 27.1 - 32.0 pg [facility] Mean Cell Hemoglobin Concentration 32.7 31.7 - 35.0 g/dL [facility] Platelet 200 145 - 357 x10(3)/mc L [facility] RDW Standard Deviation 47.4(H) 37.0 - 46.0 fL [facility] RDW coefficient of variation 13.3 11.5 - 14.1 % [facility] Mean Platelet Volume 10.8 7.6 - 12.9 fL [facility] NRBC% auto 0.0 % [facility] NRBC Absolute 0.000 0.000 - 0.000 x10(3)/mc L [facility] Blood 07/02/2023 3:58 AM EDT 07/02/2023 4:14 AM EDT Narrative Resulting Agency Comment Spec In Lab Terrence Keating MD HEMATOLOGY ORDERABLE S [facility] [place] [address] * Heparin (unfractionated) Level (07/02/2023 3:58 AM EDT) UF Heparin 0.57 IU/mL [facility] Comment: [...] Lab Ailyn Irvin MD HEMATOLOGY ORDERABLE S [facility] [place] [address] * (ABNORMAL) Basic Metabolic Panel (non-fasting) (07/02/2023 3:58 AM EDT) Glucose 96 65 - 199 mg/dL [facility] Comment:Diabetes: >=200 mg/d L plus symptoms Blood Urea Nitrogen 15 8 - 18 mg/dL [facility] Creatinine 1.21(H) 0.70 - 1.20 mg/dL [facility] Sodium 133(L) 135 - 145 mmol/L [facility] Potassium 4.1 3.5 - 5.0 mmol/L [facility] Comment: Please note: ??Patients with WBC >100,000 may have falsely elevated Potassium levels. ??For accurate Potassium quantification in these patients send serum separator tube (gold top) for subsequent determinations. ??Contact the Clinical Chemistry Laboratory if there are any questions. Chloride 104 98 - 107 mmol/L [facility] Carbon Dioxide 21(L) 22 - 31 mmol/L [facility] Anion Gap 8 5 - 15 mmol/L [facility] Calcium 8.8 8.5 - 10.5 mg/dL [facility] Est Glomerular Filtration Rate 53(L) >=60 mL/min/1. 73 m?? [facility] [...] ORDERABL ES Performing Organization Address [facility] Co de Phone Number [facility] [place] [address] * Phosphorus (07/02/2023 3:58 AM EDT) Phosphorus 3.8 2.5 - 4.5 mg/dL [facility] Blood 07/02/2023 3:58 AM EDT 07/02/2023 4:14 AM EDT Narrative Resulting Agency Comment Spec In Lab Eufemia Copeland MD CHEMISTRY ORDERABL ES Performing Organization Address [facility] de Phone Number [facility] [place] [address] * Magnesium (07/02/2023 3:58 AM EDT) Magnesium 0.95 0.69 - 1.07 mmol/L [facility] Blood 07/02/2023 3:58 AM EDT 07/02/2023 4:14 AM EDT Narrative Resulting Agency Comment Spec In Lab Eufemia Copeland MD CHEMISTRY ORDERABL ES Performing Organization Address [facility] Co de Phone Number [facility] [place] [address] * EKG 12 Lead (07/01/2023 12:08 PM EDT) Ventricular rate 48 BPM MUSE SYSTEM Atrial Rate 48 BPM MUSE SYSTEM P-R Interval 192 ms MUSE SYSTEM QRS Duration 92 ms MUSE SYSTEM Q-T Interval 474 ms MUSE SYSTEM QTC Calculated (Bezet) 423 ms MUSE SYSTEM Calculated P Pinon 32 degrees MUSE SYSTEM Calculated R Pinon 45 degrees MUSE SYSTEM Calculated T Pinon 0 degrees MUSE SYSTEM INTERPRETATION Sinus bradycardia [...] 2:56 AM EDT) Neutrophil % 50.5 % [facility] Neutrophil Absolute 3.47 1.70 - 6.10 x10(3)/[facility] Lymph % 36.5 % [facility] Lymphocytes Abs 2.5 0.9 - 3.2 x10(3)/[facility] Monocyte % 7.7 % [facility] Monocyte Abs 0.5 0.3 - 0.9 x10(3)/[facility] Eos % 4.5 % [facility] Eosinophils Abs 0.3 0.0 - 0.4 x10(3)/[facility] Basophil % 0.7 % [facility] Baso Absolute 0.0 0.0 - 0.1 x10(3)/[facility] Immature Gran % 0.10 % [facility] Comment: Immature granulocytes(IG's)percentage and absolute count will include metamyelocytes, myelocytes, and promyelocytes. Blood smears from CBCs yielding IG's will be scanned manually for concordance. If this scan disagrees with the automated IG or if promyelocytes are noted, a manual differential will be performed. Immature Gran Absolute 0.01 0.00 - 0.04 x10(3)/[facility] Blood 07/01/2023 2:56 AM EDT 07/01/2023 3:22 AM EDT Narrative Resulting Agency Comment Spec In Lab Terrence Keating MD HEMATOLOGY ORDERABLE S [facility] [place] [address] * (ABNORMAL) Hemogram (07/01/2023 2:56 AM EDT) White Blood Cell 6.9 4.0 - 9.5 x10(3)/[facility] Red Blood Cell 4.04 4.00 - 5.21 x10(6)/[facility] Hemoglobin 12.8 11.7 - 15.5 g/dL [facility] Hematocrit 39.0 35.7 - 45.8 % [facility] Mean Cell Volume 96.5(H) 82.6 - 94.4 fL [facility] Mean Cell Hemoglobin 31.7 27.1 - 32.0 pg [facility] Mean Cell Hemoglobin Concentration 32.8 31.7 - 35.0 g/dL [facility] Platelet 224 145 - 357 x10(3)/[facility] RDW Standard Deviation 47.8(H) 37.0 - 46.0 [facility] RDW coefficient of variation 13.3 11.5 - 14.1 % [facility] Mean Platelet Volume 11.1 7.6 - 12.9 [facility] NRBC% auto 0.0 % [facility] NRBC Absolute 0.000 0.000 - 0.000 x10(3)/ L [facility] Blood 07/01/2023 2:56 AM EDT 07/01/2023 3:22 AM EDT Narrative Resulting Agency Comment Spec In Lab Terrence Keating MD HEMATOLOGY ORDERABLE S Performing Organization Address [facility]/ZIP Co de Phone Number [facility] [place] [address] * Heparin (unfractionated) Level (07/01/2023 2:56 AM EDT) Pathologist [facility] UF Heparin 0.56 IU/mL [facility] Comment: [...] ORDERABLE S Performing Organization Address [facility]/ZIP Co de Phone Number [facility] [facility] [place] [address] * (ABNORMAL) Basic Metabolic Panel (non-fasting) (07/01/2023 2:56 AM EDT) [facility] Glucose 95 65 - 199 mg/dL [facility] Comment:Diabetes: >=200 mg/d L plus symptoms Blood Urea Nitrogen 16 8 - 18 mg/dL [facility] Creatinine 1.21(H) 0.70 - 1.20 mg/dL [facility] Sodium 137 135 - 145 mmol/L [facility] Potassium 4.1 3.5 - 5.0 mmol/L [facility] Comment: Please note: ??Patients with WBC >100,000 may have falsely elevated Potassium levels. ??For accurate Potassium quantification in these patients send serum separator tube (gold top) for subsequent determinations. ??Contact the Clinical Chemistry Laboratory if there are any questions. Chloride 105 98 - 107 mmol/L [facility] Carbon Dioxide 22 22 - 31 mmol/L [facility] Anion Gap 10 5 - 15 mmol/L [facility] Calcium 9.0 8.5 - 10.5 mg/dL [facility] Est Glomerular Filtration Rate 53(L) >=60 mL/min/1. 73 m?? [facility] ORDERABL ES Performing Organization Address [facility] Co de Phone Number [facility] [place] [address] * Phosphorus (07/01/2023 2:56 AM EDT) Phosphorus 4.1 2.5 - 4.5 mg/dL [facility] Blood 07/01/2023 2:56 AM EDT 07/01/2023 3:22 AM EDT Narrative Resulting Agency Comment Spec In Lab Eufemia Copeland MD CHEMISTRY ORDERABL ES Performing Organization Address City/[facility]/ZIP Co de Phone Number [facility] [place] [address] * Magnesium (07/01/2023 2:56 AM EDT) [facility] Magnesium 0.95 0.69 - 1.07 mmol/L [facility] Blood 07/01/2023 2:56 AM EDT 07/01/2023 3:22 AM EDT Narrative Resulting Agency Comment Spec In Lab Eufemia Copeland MD CHEMISTRY ORDERABL ES Performing Organization Address [facility]/ZIP Co de Phone Number [facility] [place] [address] * Heparin (unfractionated) Level (06/30/2023 9:24 AM EDT) [facility] UF Heparin 0.62 IU/mL [facility] Comment: [...] [facility] [place]/ZIP Co de Phone Number [facility] [place] [place] [address] * Differential, Automated (06/30/2023 3:14 AM EDT) Pathologist [facility] Neutrophil % 49.5 % [facility] Neutrophil Absolute 3.96 1.70 - 6.10 x10(3)/mcL [facility] Lymph % 36.6 % [facility] Lymphocytes Abs 2.9 0.9 - 3.2 x10(3)/[facility] Monocyte % 8.6 % [facility] Monocyte Abs 0.7 0.3 - 0.9 x10(3)/[facility] Eos % 4.1 % [facility] Eosinophils Abs 0.3 0.0 - 0.4 x10(3)/[facility] Basophil % 0.8 % [facility] Baso Absolute 0.1 0.0 - 0.1 x10(3)/[facility] Immature Gran % 0.40 % [facility] Comment: Immature granulocytes(IG's)percentage and absolute count will include metamyelocytes, myelocytes, and promyelocytes. Blood smears from CBCs yielding IG's will be scanned manually for concordance. If this scan disagrees with the automated IG or if promyelocytes are noted, a manual differential will be performed. Immature Gran Absolute 0.03 0.00 - 0.04 x10(3)/[facility] Blood 06/30/2023 3:14 AM EDT 06/30/2023 3:23 AM EDT Narrative Resulting Agency Comment Spec In Lab Terrence Keating MD HEMATOLOGY ORDERABLE S [facility] [place] [address] * Hemogram (06/30/2023 3:14 AM EDT) White Blood Cell 8.0 4.0 - 9.5 x10(3)/[facility] Red Blood Cell 4.22 4.00 - 5.21 x10(6)/[facility] Hemoglobin 13.1 11.7 - 15.5 g/dL [facility] Hematocrit 39.5 35.7 - 45.8 % [facility] Mean Cell Volume 93.6 82.6 - 94.4 fL [facility] Mean Cell Hemoglobin 31.0 27.1 - 32.0 pg [facility] Mean Cell Hemoglobin Concentration 33.2 31.7 - 35.0 g/dL [facility] Platelet 235 145 - 357 x10(3)/[facility] RDW Standard Deviation 45.3 37.0 - 46.0 fL [facility] RDW coefficient of variation 13.3 11.5 - 14.1 % [facility] Mean Platelet Volume 11.0 7.6 - 12.9 fL [facility] NRBC% auto 0.0 % [facility] NRBC Absolute 0.000 0.000 - 0.000 x10(3)/[facility] Blood 06/30/2023 3:14 AM EDT 06/30/2023 3:23 AM EDT Narrative Resulting Agency Comment Spec In Lab Terrence Keating MD HEMATOLOGY ORDERABLE S [facility] [place] [address] * Heparin (unfractionated) Level (06/30/2023 3:14 AM EDT) UF Heparin 0.70 IU/mL [facility] Comment: [...] Lab Terrence Keating MD HEMATOLOGY ORDERABLE S [facility] [place] [address] * (ABNORMAL) Basic Metabolic Panel (non-fasting) (06/30/2023 3:14 AM EDT) Glucose 103 65 - 199 mg/dL [facility] Comment:Diabetes: >=200 mg/d L plus symptoms Blood Urea Nitrogen 18 8 - 18 mg/dL [facility] Creatinine 1.22(H) 0.70 - 1.20 mg/dL [facility] Sodium 137 135 - 145 mmol/L [facility] Potassium 3.8 3.5 - 5.0 mmol/L [facility] Comment: Please note: ??Patients with WBC >100,000 may have falsely elevated Potassium levels. ??For accurate Potassium quantification in these patients send serum separator tube (gold top) for subsequent determinations. ??Contact the Clinical Chemistry Laboratory if there are any questions. Chloride 104 98 - 107 mmol/L [facility] Carbon Dioxide 23 22 - 31 mmol/L [facility] Anion Gap 10 5 - 15 mmol/L [facility] Calcium 9.1 8.5 - 10.5 mg/dL [facility] Est Glomerular Filtration Rate 53(L) >=60 mL/min/1. 73 m?? [facility] ORDERABL ES Performing Organization Address [facility] de Phone Number [facility] [place] [address] * Phosphorus (06/30/2023 3:14 AM EDT) Phosphorus 4.4 2.5 - 4.5 mg/dL [facility] Blood 06/30/2023 3:14 AM EDT 06/30/2023 3:23 AM EDT Narrative Resulting Agency Comment Spec In Lab Eufemia Copeland MD CHEMISTRY ORDERABL ES Performing Organization Address [facility] Phone Number [facility] [place] [address] * Magnesium (06/30/2023 3:14 AM EDT) Magnesium 0.94 0.69 - 1.07 mmol/L [facility] Blood 06/30/2023 3:14 AM EDT 06/30/2023 3:23 AM EDT Narrative Resulting Agency Comment Spec In Lab Eufemia Copeland MD CHEMISTRY ORDERABL ES Performing Organization Address [facility] de Phone Number [facility] [place] [address] * Heparin (unfractionated) Level (06/29/2023 8:47 PM EDT) UF Heparin 0.75 IU/mL [facility] Comment: [...] ORDERABLE S Performing Organization Address [facility] Co de Phone Number [facility] [place] [place] [address] * EKG 12 Lead (06/29/2023 12:55 PM EDT) Ventricular rate 53 BPM MUSE SYSTEM Atrial Rate 53 BPM MUSE SYSTEM P-R Interval 196 ms MUSE SYSTEM QRS Duration 90 ms MUSE SYSTEM Q-T Interval 564 ms MUSE SYSTEM QTC Calculated (Bezet) 529 ms MUSE SYSTEM Calculated P Pinon 30 degrees MUSE SYSTEM Calculated R Pinon 53 degrees MUSE SYSTEM Calculated T Pinon 5 degrees MUSE SYSTEM INTERPRETATION Sinus bradycardia Marked ST abnormality, possible inferior subendocardial injury Prolonged QT Abnormal ECG When compared with ECG of 26-JUN-2023 06:04, Nonspecific T wave abnormality no longer evident in Anterolateral leads QT has lengthened Confirmed by MD Angelo Danette ([id number]) on 06/29/2023 8:34:43 PM MUSE SYSTEM 06/29/2023 12:5 5 PM EDT 06/29/2023 8:34 PM EDT Terrence Keating MD ECG ORDERABLES Performing Organization Address [facility] Co de Phone Number MUSE SYSTEM * (ABNORMAL) Heparin (unfractionated) Level (06/29/2023 11:34 AM EDT) UF Heparin 1.41(Crit ical) IU/mL [facility] Comment: Critical Result called by ?? [facility] Results read back by: ? Chilo P. Viljanen at 2023-06-29 12:14:07 Heparin (anti-Xa) levels should [...] HEMATOLOGY ORDERABLE S Performing Organization Address City/State/[facility] Co de Phone Number [facility] [place] [address] * Differential, Automated (06/29/2023 2:39 AM EDT) Neutrophil % 53.8 % [facility] Neutrophil Absolute 4.46 1.70 - 6.10 x10(3)/[facility] Lymph % 33.5 % [facility] Lymphocytes Abs 2.8 0.9 - 3.2 x10(3)/[facility] Monocyte % 8.3 % [facility] Monocyte Abs 0.7 0.3 - 0.9 x10(3)/[facility] Eos % 3.5 % [facility] Eosinophils Abs 0.3 0.0 - 0.4 x10(3)/[facility] Basophil % 0.5 % [facility] Baso Absolute 0.0 0.0 - 0.1 x10(3)/[facility] Immature Gran % 0.40 % [facility] Comment: Immature granulocytes(IG's)percentage and absolute count will include metamyelocytes, myelocytes, and promyelocytes. Blood smears from CBCs yielding IG's will be scanned manually for concordance. If this scan disagrees with the automated IG or if promyelocytes are noted, a manual differential will be performed. Immature Gran Absolute 0.03 0.00 - 0.04 x10(3)/[facility] Blood 06/29/2023 2:39 AM EDT 06/29/2023 3:33 AM EDT Narrative Resulting Agency Comment Spec In Lab Terrence Keating MD HEMATOLOGY ORDERABLE S [facility] [place] [address] * Hemogram (06/29/2023 2:39 AM EDT) White Blood Cell 8.3 4.0 - 9.5 x10(3)/[facility] Red Blood Cell 4.19 4.00 - 5.21 x10(6)/[facility] Hemoglobin 13.2 11.7 - 15.5 g/dL [facility] Hematocrit 38.9 35.7 - 45.8 % [facility] Mean Cell Volume 92.8 82.6 - 94.4 fL [facility] Mean Cell Hemoglobin 31.5 27.1 - 32.0 pg [facility] Mean Cell Hemoglobin Concentration 33.9 31.7 - 35.0 g/dL [facility] Platelet 237 145 - 357 x10(3)/[facility] RDW Standard Deviation 45.3 37.0 - 46.0 fL [facility] RDW coefficient of variation 13.3 11.5 - 14.1 % [facility] Mean Platelet Volume 11.4 7.6 - 12.9 fL [facility] NRBC% auto 0.0 % [facility] NRBC Absolute 0.000 0.000 - 0.000 x10(3)/mcL [facility] Blood 06/29/2023 2:39 AM EDT 06/29/2023 3:33 AM EDT Narrative Resulting Agency Comment Spec In Lab Terrence Keating MD HEMATOLOGY ORDERABLE S Performing Organization Address City/[facility] Co de Phone Number [facility] [place] [address] * (ABNORMAL) Heparin (unfractionated) Level (06/29/2023 2:39 AM EDT) UF Heparin 1.77(Crit ical) IU/mL [facility] Comment: Specimen drawn more than one hour prior to testing. Results may not be reliable for heparin monitoring. Result may be falsely low. Critical Result called by ?? [facility] Results read back by: ? [...] Comment Spec In Lab Aliyn Irvin MD HEMATOLOGY ORDERABLE S Performing Organization Address City/[facility]/ZIP Co de Phone Number [facility] [place] [address] * (ABNORMAL) Basic Metabolic Panel (non-fasting) (06/29/2023 2:39 AM EDT) Glucose 100 65 - 199 mg/dL [facility] Comment:Diabetes: >=200 mg/d L plus symptoms Blood Urea Nitrogen 21(H) 8 - 18 mg/dL [facility] Creatinine 1.17 0.70 - 1.20 mg/dL [facility] Sodium 138 135 - 145 mmol/L [facility] Potassium 3.9 3.5 - 5.0 mmol/L [facility] Comment: Please note: ??Patients with WBC >100,000 may have falsely elevated Potassium levels. ??For accurate Potassium quantification in these patients send serum separator tube (gold top) for subsequent determinations. ??Contact the Clinical Chemistry Laboratory if there are any questions. Chloride 105 98 - 107 mmol/L [facility] Carbon Dioxide 22 22 - 31 mmol/L [facility] Anion Gap 11 5 - 15 mmol/L [facility] Calcium 9.1 8.5 - 10.5 mg/dL [facility] Est Glomerular Filtration Rate 55(L) >=60 mL/min/1. 73 m?? [facility] [...] Lab Eufemia Copeland MD CHEMISTRY ORDERABL ES [facility] [place] [id number] * Phosphorus (06/29/2023 2:39 AM EDT) Phosphorus 4.0 2.5 - 4.5 mg/dL [facility] Blood 06/29/2023 2:39 AM EDT 06/29/2023 3:33 AM EDT Narrative Resulting Agency Comment Spec In Lab Eufemia Copeland MD CHEMISTRY ORDERABL ES Performing Organization Address [facility] Co de Phone Number [facility] [place] [address] * Magnesium (06/29/2023 2:39 AM EDT) Magnesium 0.92 0.69 - 1.07 mmol/L [facility] Blood 06/29/2023 2:39 AM EDT 06/29/2023 3:33 AM EDT Narrative Resulting Agency Comment Spec In Lab Eufemia Copeland MD CHEMISTRY ORDERABL ES Performing Organization Address [facility] Co de Phone Number [facility] [place] [address] * US Abdomen Limited (06/28/2023 12:22 PM EDT) WORKSTATION ID [id number] DH RAD Anatomical Region Laterality Modality Abdomen [...] who have questions, please contact the health career education 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 ?Sigrid Owens, [facility] Separating Machine Operator Electronically Signed Final Report ?? 06/28/2023 02:08 pm Narrative 06/28/2023 2:08 PM EDT Abdominal ? (Signed Final 06/28/2023 02:08 pm) PATIENT INFO: ID #: ? [id number] ?: ??[birth year] (53 yrs)(F) Name: ? LOIDA ?Visit Date: 06/28/2023 12:20 pm ? ROHAN PERFORMED BY: Attending: ?Graciela JOHN, Sigrid Munoz Resident: ? Karo JOHN, Rafaela Performed By: ? Rick STANFORD, ??Deena Referred By: ?AILYN IRVIN Location: ? [place] SERVICE(S) PROVIDED: UABDLIM - Abdominal Limited Survey Single ? 68077 Organ or Quadrant - [id number] INDICATIONS: RUQ pain, R/o Gall bladder colic, [...] 06/28/2023 02:08 pm) PATIENT INFO: ID #: [id number] : [birth year] (53 yrs)(F) Name: LOIDA Visit Date: 06/28/2023 12:20 pm ROHAN PERFORMED BY: Attending: Sigrid Owens MD Resident: Rafaela Huddleston MD Performed By: Deena Cabrera RDMS Referred By: AILYN IRVIN Location: [place] SERVICE(S) PROVIDED: UABDLIM - Abdominal Limited Survey Single 47045 Organ or Quadrant - [id number] INDICATIONS: RUQ pain, R/o Gall bladder colic, [...] who have questions, please contact the health career education 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 Sigrid Owens, [facility] Separating Machine Operator Electronically Signed Final Report 06/28/2023 02:08 pm Ailyn Irvin MD IMG GEN ORDERABLE S * Duplex Study Visceral Arteries, Comp (06/28/2023 10:19 AM EDT) Pathologist [facility] Text Report Department: Vascular Surgery Lab Patient: [id number] (LOIDA ROQUE) CPT: [id number] Referring Physician: HEIDY SULLIVAN ?? Indications: abdominal pain, ? patency/stenosi s Findings: Unilateral ? Waveform ? PSV cm/s ??EDV cm/s ??Patent ?? Dary Visceral Aorta ? 80 ?16 ? Celiac Artery, Proximal ??[place]-Biphasic ? 119 ?26 ? Celiac Artery, Mid ? [place]-Biphasic ? 115 ?21 ? Celiac Artery, Distal ? No Vis ?? Sup Mes Artery Proximal ??Biphasic ?427 ?91 ? Sup Mes Artery Middle ?[place]-Biphasic ? 100 ?17 ? Sup Mes Artery Distal ?[place]-Biphasic ?64 ?15 ? Hepatic Artery ?No Vis [...] 1:52 AM EDT) Neutrophil % 55.3 % [facility] Neutrophil Absolute 4.46 1.70 - 6.10 x10(3)/mcL [facility] Lymph % 30.6 % [facility] Lymphocytes Abs 2.5 0.9 - 3.2 x10(3)/[facility] Monocyte % 8.8 % [facility] Monocyte Abs 0.7 0.3 - 0.9 x10(3)/[facility] Eos % 4.6 % [facility] Eosinophils Abs 0.4 0.0 - 0.4 x10(3)/[facility] Basophil % 0.5 % [facility] Baso Absolute 0.0 0.0 - 0.1 x10(3)/[facility] Immature Gran % 0.20 % [facility] Comment: Immature granulocytes(IG's)percentage and absolute count will include metamyelocytes, myelocytes, and promyelocytes. Blood smears from CBCs yielding IG's will be scanned manually for concordance. If this scan disagrees with the automated IG or if promyelocytes are noted, a manual differential will be performed. Immature Gran Absolute 0.02 0.00 - 0.04 x10(3)/[facility] Blood 06/28/2023 1:52 AM EDT 06/28/2023 2:05 AM EDT Narrative Resulting Agency Comment Spec In Lab Terrence Keating MD HEMATOLOGY ORDERABLE S [facility] [place] [address] * Hemogram (06/28/2023 1:52 AM EDT) White Blood Cell 8.1 4.0 - 9.5 x10(3)/[facility] Red Blood Cell 4.30 4.00 - 5.21 x10(6)/[facility] Hemoglobin 13.4 11.7 - 15.5 g/dL [facility] Hematocrit 40.6 35.7 - 45.8 % [facility] Mean Cell Volume 94.4 82.6 - 94.4 fL [facility] Mean Cell Hemoglobin 31.2 27.1 - 32.0 pg [facility] Mean Cell Hemoglobin Concentration 33.0 31.7 - 35.0 g/dL [facility] Platelet 238 145 - 357 x10(3)/[facility] RDW Standard Deviation 45.7 37.0 - 46.0 fL [facility] RDW coefficient of variation 13.2 11.5 - 14.1 % [facility] Mean Platelet Volume 10.8 7.6 - 12.9 fL [facility] NRBC% auto 0.0 % [facility] NRBC Absolute 0.000 0.000 - 0.000 x10(3)/[facility] Blood 06/28/2023 1:52 AM EDT 06/28/2023 2:05 AM EDT Narrative Resulting Agency Comment Spec In Lab Terrence Keating MD HEMATOLOGY ORDERABLE S [facility] [place] [address] * (ABNORMAL) Basic Metabolic Panel (non-fasting) (06/28/2023 1:52 AM EDT) Glucose 101 65 - 199 mg/dL [facility] Comment:Diabetes: >=200 mg/d L plus symptoms Blood Urea Nitrogen 24(H) 8 - 18 mg/dL [facility] Creatinine 1.21(H) 0.70 - 1.20 mg/dL [facility] 107 mmol/L [facility] Carbon Dioxide 21(L) 22 - 31 mmol/L [facility] Anion Gap 12 5 - 15 mmol/L [facility] Calcium 9.0 8.5 - 10.5 mg/dL [facility] Est Glomerular Filtration Rate 53(L) >=60 mL/min/1. 73 m?? [facility] ORDERABL ES Performing Organization Address [facility] Co de Phone Number [facility] [place] [address] * Phosphorus (06/28/2023 1:52 AM EDT) Phosphorus 4.5 2.5 - 4.5 mg/dL [facility] Blood 06/28/2023 1:52 AM EDT 06/28/2023 2:05 AM EDT Narrative Resulting Agency Comment Spec In Lab Eufemia Copeland MD CHEMISTRY ORDERABL ES Performing Organization Address [facility]/ZIP Co de Phone Number [facility] [place] [address] * Magnesium (06/28/2023 1:52 AM EDT) Magnesium 0.93 0.69 - 1.07 mmol/L [facility] Blood 06/28/2023 1:52 AM EDT 06/28/2023 2:05 AM EDT Narrative Resulting Agency Comment Spec In Lab Eufemia Copeland MD CHEMISTRY ORDERABL ES [facility] [place] [address] * (ABNORMAL) Basic Metabolic Panel (non-fasting) (06/27/2023 8:06 PM EDT) Glucose 94 65 - 199 mg/dL [facility] Comment:Diabetes: >=200 mg/d L plus symptoms Blood Urea Nitrogen 24(H) 8 - 18 mg/dL [facility] Creatinine 1.28(H) 0.70 - 1.20 mg/dL [facility] Sodium 141 135 - 145 mmol/L [facility] Potassium 4.3 3.5 - 5.0 mmol/L [facility] Comment: Please note: ??Patients with WBC >100,000 may have falsely elevated Potassium levels. ??For accurate Potassium quantification in these patients send serum separator tube (gold top) for subsequent determinations. ??Contact the Clinical Chemistry Laboratory if there are any questions. Chloride 106 98 - 107 mmol/L [facility] Carbon Dioxide 24 22 - 31 mmol/L [facility] Anion Gap 11 5 - 15 mmol/L [facility] Calcium 9.3 8.5 - 10.5 mg/dL [facility] Est Glomerular Filtration Rate 50(L) >=60 mL/min/1. 73 m?? [facility] Irvin MD CHEMISTRY ORDERABLES Performing Organization Address [facility]/ZIP Co de Phone Number [facility] [place] [address] * (ABNORMAL) Hepatic Function Panel (06/27/2023 4:34 AM EDT) [facility] Protein, Total 6.4 6.1 - 8.0 g/dL [facility] Albumin 3.8 3.2 - 5.2 g/dL [facility] Aspartate Aminotransferase 21 0 - 30 unit/L [facility] Alanine Aminotransferase 22 0 - 30 unit/L [facility] Alkaline Phosphatase 56 35 - 105 unit/L [facility] Bilirubin, Total <0.2(L) 0.2 - 1.3 mg/dL [facility] Bilirubin, Direct <0.1 0.0 - 0.3 mg/dL [facility] Blood Venous Draw / Unknown 06/27/2023 4:34 AM EDT 06/27/2023 4:53 AM EDT Narrative Resulting Agency Comment Spec In Lab Ailyn Irvin MD CHEMISTRY ORDERABLES Performing Organization Address City/[facility] [place]/ZIP Co de Phone Number [facility] [place] [address] * Differential, Automated (06/27/2023 4:34 AM EDT) [facility] Neutrophil % 52.7 % [facility] Neutrophil Absolute 4.01 1.70 - 6.10 x10(3)/mcL [facility] Lymph % 33.8 % [facility] Lymphocytes Abs 2.6 0.9 - 3.2 x10(3)/[facility] Monocyte % 8.8 % [facility] Monocyte Abs 0.7 0.3 - 0.9 x10(3)/[facility] Eos % 3.8 % [facility] Eosinophils Abs 0.3 0.0 - 0.4 x10(3)/[facility] Basophil % 0.5 % [facility] Baso Absolute 0.0 0.0 - 0.1 x10(3)/[facility] Immature Gran % 0.40 % [facility] Comment: Immature granulocytes(IG's)percentage and absolute count will include metamyelocytes, myelocytes, and promyelocytes. Blood smears from CBCs yielding IG's will be scanned manually for concordance. If this scan disagrees with the automated IG or if promyelocytes are noted, a manual differential will be performed. Immature Gran Absolute 0.03 0.00 - 0.04 x10(3)/[facility] Blood 06/27/2023 4:34 AM EDT 06/27/2023 4:51 AM EDT Narrative Resulting Agency Comment Spec In Lab Terrence Keating MD HEMATOLOGY ORDERABLE S Performing Organization Address City/State/[facility] Co de Phone Number [facility] [place] [address] * Hemogram (06/27/2023 4:34 AM EDT) White Blood Cell 7.6 4.0 - 9.5 x10(3)/[facility] Red Blood Cell 4.15 4.00 - 5.21 x10(6)/[facility] Hemoglobin 12.9 11.7 - 15.5 g/dL [facility] Hematocrit 39.0 35.7 - 45.8 % [facility] Mean Cell Volume 94.0 82.6 - 94.4 fL [facility] Mean Cell Hemoglobin 31.1 27.1 - 32.0 pg [facility] Mean Cell Hemoglobin Concentration 33.1 31.7 - 35.0 g/dL [facility] Platelet 245 145 - 357 x10(3)/[facility] RDW Standard Deviation 45.2 37.0 - 46.0 fL [facility] RDW coefficient of variation 13.2 11.5 - 14.1 % [facility] Mean Platelet Volume 11.2 7.6 - 12.9 fL [facility] NRBC% auto 0.0 % [facility] NRBC Absolute 0.000 0.000 - 0.000 x10(3)/[facility] Blood 06/27/2023 4:34 AM EDT 06/27/2023 4:51 AM EDT Narrative Resulting Agency Comment Spec In Lab Terrence Keatign MD HEMATOLOGY ORDERABLE S [facility] [place] [address] * (ABNORMAL) Basic Metabolic Panel (non-fasting) (06/27/2023 4:34 AM EDT) Glucose 99 65 - 199 mg/dL [facility] Comment:Diabetes: >=200 mg/d L plus symptoms Blood Urea Nitrogen 26(H) 8 - 18 mg/dL [facility] Creatinine 1.22(H) 0.70 - 1.20 mg/dL [facility] Sodium 138 135 - 145 mmol/L [facility] Potassium 3.9 3.5 - 5.0 mmol/L [facility] Comment: Please note: ??Patients with WBC >100,000 may have falsely elevated Potassium levels. ??For accurate Potassium quantification in these patients send serum separator tube (gold top) for subsequent determinations. ??Contact the Clinical Chemistry Laboratory if there are any questions. Chloride 105 98 - 107 mmol/L [facility] Carbon Dioxide 22 22 - 31 mmol/L [facility] Anion Gap 11 5 - 15 mmol/L [facility] Calcium 9.1 8.5 - 10.5 mg/dL [facility] Est Glomerular Filtration Rate 53(L) >=60 mL/min/1. 73 m?? [facility] MD CHEMISTRY ORDERABL ES Performing Organization Address City/[facility] [place]/ZIP Co de Phone Number [facility] [place] [address] * (ABNORMAL) Phosphorus (06/27/2023 4:34 AM EDT) Phosphorus 4.7(H) 2.5 - 4.5 mg/dL [facility] Blood 06/27/2023 4:34 AM EDT 06/27/2023 4:51 AM EDT Narrative Resulting Agency Comment Spec In Lab Eufemia Copeland MD CHEMISTRY ORDERABL ES [facility] [place] [address] * Magnesium (06/27/2023 4:34 AM EDT) Magnesium 0.90 0.69 - 1.07 mmol/L [facility] Blood 06/27/2023 4:34 AM EDT 06/27/2023 4:51 AM EDT Narrative Resulting Agency Comment Spec In Lab Eufemia Copeland MD CHEMISTRY ORDERABL ES [facility] [place] [address] * (ABNORMAL) Basic Metabolic Panel (non-fasting) (06/26/2023 4:58 PM EDT) Glucose 106 65 - 199 mg/dL [facility] Comment:Diabetes: >=200 mg/d L plus symptoms Blood Urea Nitrogen 24(H) 8 - 18 mg/dL [facility] Creatinine 1.23(H) 0.70 - 1.20 mg/dL [facility] questions. Chloride 104 98 - 107 mmol/L [facility] Carbon Dioxide 21(L) 22 - 31 mmol/L [facility] Anion Gap 13 5 - 15 mmol/L [facility] Calcium 9.1 8.5 - 10.5 mg/dL [facility] Est Glomerular Filtration Rate 52(L) >=60 mL/min/1. 73 m?? [facility] [...] Irvin MD CHEMISTRY ORDERABLES Performing Organization Address [facility] [place]/[facility] Co de Phone Number [facility] [place] [address] * Urinalysis Microscopic Exam (06/26/2023 11:09 AM EDT) RBC, Urine 0 0 - 4 /HPF [facility] WBC, Urine 3 0 - 5 /HPF [facility] Squamous Epithelial Cells Raw Data, Urine 1 <=4 /HPF [facility] Hyaline Casts, Urine 1 0 - 2 /LPF [facility] Clean Catch Urine 06/26/2023 11:09 AM EDT 06/26/2023 5:45 PM EDT Narrative Resulting Agency Comment Spec In Lab Ailyn Irvin MD URINE ORDERABLES Performing Organization Address [facility] [place]/[facility] de Phone Number [facility] [place] [address] * (ABNORMAL) Urinalysis with reflex Culture (06/26/2023 11:09 AM EDT) Glucose, Urine Dipstick Negative Negative mg/dL [facility] Protein, Urine Dipstick Negative Negative mg/dL [facility] Bilirubin, Urine Dipstick Negative Negative mg/dL [facility] Comment: Clinical correlation required for positive Urine Bilirubin results as false positive may occur with some drugs and drug related products. If a false positive is suspected a serum total bilirubin should be considered if clinically indicated. Urobilinogen, Urine Dipstick Normal Normal mg/dL [facility] pH, Urn (dipstick) 6.0 5.0 - 8.0 [facility] Blood, Urine Dipstick Negative Negative mg/dL [facility] Ketone, Urine Dipstick Negative Negative mg/dL [facility] Nitrite, Urine Dipstick Negative Negative [facility] Leukocytes, Urine Dipstick Trace(A) Negative [facility] Appearance, Urine Dipstick Clear Clear [facility] Specific [place] Urine Automated 1.013 1.005 - 1.030 [facility] Color, Urine Dipstick Yellow Yellow [facility] Reflex to Culture No [facility] Clean Catch Urine 06/26/2023 11:09 AM EDT 06/26/2023 5:45 PM EDT Narrative Resulting Agency Comment Spec In Lab Ailyn Irvin MD URINE ORDERABLES Performing Organization Address [facility] [place]/[facility] Co de Phone Number [facility] [place] [address] * EKG 12 Lead (06/26/2023 6:04 AM EDT) Ventricular rate 46 BPM MUSE SYSTEM Atrial Rate 46 BPM MUSE SYSTEM P-R Interval 204 ms MUSE SYSTEM QRS Duration 90 ms MUSE SYSTEM Q-T Interval 466 ms MUSE SYSTEM QTC Calculated (Bezet) 407 ms MUSE SYSTEM Calculated P Pinon 38 degrees MUSE SYSTEM Calculated R Pinon 48 degrees MUSE SYSTEM Calculated T Pinon 13 degrees MUSE SYSTEM INTERPRETATION Sinus bradycardia Nonspecific ST and T wave abnormality Abnormal ECG When compared with ECG of 23-JUN-2023 09:54, No significant change was found Confirmed by MD Dalia, Willy Huerta ([id number]) on 06/29/2023 6:09:20 AM MUSE SYSTEM 06/26/2023 6:04 AM EDT 06/29/2023 6:09 AM EDT Eufemia Copeland MD ECG ORDERABLES Performing Organization Address City/[facility] [place]/ZIP Co de Phone Number MUSE SYSTEM * Differential, Automated (06/26/2023 4:06 AM EDT) Pathologist [facility] Neutrophil % 55.3 % [facility] Neutrophil Absolute 4.63 1.70 - 6.10 x10(3)/[facility] Lymph % 32.6 % [facility] Lymphocytes Abs 2.7 0.9 - 3.2 x10(3)/[facility] Monocyte % 8.2 % [facility] Monocyte Abs 0.7 0.3 - 0.9 x10(3)/[facility] Eos % 3.2 % [facility] Eosinophils Abs 0.3 0.0 - 0.4 x10(3)/[facility] Basophil % 0.5 % [facility] Baso Absolute 0.0 0.0 - 0.1 x10(3)/[facility] Immature Gran % 0.20 % [facility] Comment: Immature granulocytes(IG's)percentage and absolute count will include metamyelocytes, myelocytes, and promyelocytes. Blood smears from CBCs yielding IG's will be scanned manually for concordance. If this scan disagrees with the automated IG or if promyelocytes are noted, a manual differential will be performed. Immature Gran Absolute 0.02 0.00 - 0.04 x10(3)/[facility] Blood 06/26/2023 4:06 AM EDT 06/26/2023 4:18 AM EDT Narrative Resulting Agency Comment Spec In Lab Terrence Keating MD HEMATOLOGY ORDERABLE S [facility] [place] [address] * (ABNORMAL) Hemogram (06/26/2023 4:06 AM EDT) [facility] White Blood Cell 8.4 4.0 - 9.5 x10(3)/[facility] Red Blood Cell 4.52 4.00 - 5.21 x10(6)/mc L [facility] Hemoglobin 14.0 11.7 - 15.5 g/dL [facility] Hematocrit 43.6 35.7 - 45.8 % [facility] Mean Cell Volume 96.5(H) 82.6 - 94.4 fL [facility] Mean Cell Hemoglobin 31.0 27.1 - 32.0 pg [facility] Mean Cell Hemoglobin Concentration 32.1 31.7 - 35.0 g/dL [facility] Platelet 258 145 - 357 x10(3)/mc L [facility] RDW Standard Deviation 46.7(H) 37.0 - 46.0 fL [facility] RDW coefficient of variation 13.2 11.5 - 14.1 % [facility] Mean Platelet Volume 11.1 7.6 - 12.9 fL [facility] NRBC% auto 0.0 % [facility] NRBC Absolute 0.000 0.000 - 0.000 x10(3)/mc L [facility] Blood 06/26/2023 4:06 AM EDT 06/26/2023 4:18 AM EDT Narrative Resulting Agency Comment Spec In Lab Terrence Keating MD HEMATOLOGY ORDERABLE S Performing Organization Address City/State/[facility] Co de Phone Number [facility] [place] [address] * (ABNORMAL) Basic Metabolic Panel (non-fasting) (06/26/2023 4:06 AM EDT) Glucose 100 65 - 199 mg/dL [facility] Comment:Diabetes: >=200 mg/d L plus symptoms Blood Urea Nitrogen 25(H) 8 - 18 mg/dL [facility] Creatinine 1.24(H) 0.70 - 1.20 mg/dL [facility] Sodium 135 135 - 145 mmol/L [facility] [...] questions. Chloride 104 98 - 107 mmol/L [facility] Carbon Dioxide 19(L) 22 - 31 mmol/L [facility] Anion Gap 12 5 - 15 mmol/L [facility] Calcium 9.6 8.5 - 10.5 mg/dL [facility] Est Glomerular Filtration Rate 52(L) >=60 mL/min/1. 73 m?? [facility] MD CHEMISTRY ORDERABL ES Performing Organization Address City/[facility] [place]/[facility] Co de Phone Number [facility] [place] [address] * Phosphorus (06/26/2023 4:06 AM EDT) Phosphorus 4.3 2.5 - 4.5 mg/dL [facility] Blood 06/26/2023 4:06 AM EDT 06/26/2023 4:18 AM EDT Narrative Resulting Agency Comment Spec In Lab Eufemia Copeland MD CHEMISTRY ORDERABL ES [facility] [place] [address] * Magnesium (06/26/2023 4:06 AM EDT) Pathologist [facility] Magnesium 0.96 0.69 - 1.07 mmol/L [facility] Blood 06/26/2023 4:06 AM EDT 06/26/2023 4:18 AM EDT Narrative Resulting Agency Comment Spec In Lab Eufemia Copeland MD CHEMISTRY ORDERABL ES Performing Organization Address [facility] [place]/[facility] Co de Phone Number [facility] [place] [address] * Differential, Automated (06/25/2023 1:50 AM EDT) [facility] Neutrophil % 56.2 % [facility] Neutrophil Absolute 4.06 1.70 - 6.10 x10(3)/[facility] Lymph % 30.5 % [facility] Lymphocytes Abs 2.2 0.9 - 3.2 x10(3)/[facility] Monocyte % 8.7 % [facility] Monocyte Abs 0.6 0.3 - 0.9 x10(3)/[facility] Eos % 3.9 % [facility] Eosinophils Abs 0.3 0.0 - 0.4 x10(3)/[facility] Basophil % 0.6 % [facility] Baso Absolute 0.0 0.0 - 0.1 x10(3)/[facility] Immature Gran % 0.10 % [facility] Comment: Immature granulocytes(IG's)percentage and absolute count will include metamyelocytes, myelocytes, and promyelocytes. Blood smears from CBCs yielding IG's will be scanned manually for concordance. If this scan disagrees with the automated IG or if promyelocytes are noted, a manual differential will be performed. Immature Gran Absolute 0.01 0.00 - 0.04 x10(3)/[facility] Blood 06/25/2023 1:50 AM EDT 06/25/2023 2:16 AM EDT Narrative Resulting Agency Comment Spec In Lab Terrence Keating MD HEMATOLOGY ORDERABLE S [facility] [place] [address] * Hemogram (06/25/2023 1:50 AM EDT) White Blood Cell 7.2 4.0 - 9.5 x10(3)/[facility] Red Blood Cell 4.57 4.00 - 5.21 x10(6)/[facility] Hemoglobin 14.4 11.7 - 15.5 g/dL [facility] Hematocrit 42.9 35.7 - 45.8 % [facility] Mean Cell Volume 93.9 82.6 - 94.4 fL [facility] Mean Cell Hemoglobin 31.5 27.1 - 32.0 pg [facility] Mean Cell Hemoglobin Concentration 33.6 31.7 - 35.0 g/dL [facility] Platelet 241 145 - 357 x10(3)/[facility] RDW Standard Deviation 44.7 37.0 - 46.0 [facility] RDW coefficient of variation 13.2 11.5 - 14.1 % [facility] Mean Platelet Volume 11.5 7.6 - 12.9 [facility] NRBC% auto 0.0 % [facility] NRBC Absolute 0.000 0.000 - 0.000 x10(3)/[facility] Blood 06/25/2023 1:50 AM EDT 06/25/2023 2:16 AM EDT Narrative Resulting Agency Comment Spec In Lab Terrence Keating MD HEMATOLOGY ORDERABLE S [facility] [place] [address] * (ABNORMAL) Basic Metabolic Panel (non-fasting) (06/25/2023 1:50 AM EDT) Glucose 99 65 - 199 mg/dL [facility] Comment:Diabetes: >=200 mg/d L plus symptoms Blood Urea Nitrogen 20(H) 8 - 18 mg/dL [facility] Creatinine 1.59(H) 0.70 - 1.20 mg/dL [facility] [...] 107 mmol/L [facility] Carbon Dioxide 25 22 - 31 mmol/L [facility] Anion Gap 12 5 - 15 mmol/L [facility] Calcium 9.4 8.5 - 10.5 mg/dL [facility] Est Glomerular Filtration Rate 38(L) >=60 mL/min/1. 73 m?? [facility] [...] ORDERABL ES Performing Organization Address [facility] [place]/[facility] [place] [address] * Phosphorus (06/25/2023 1:50 AM EDT) Phosphorus 4.4 2.5 - 4.5 mg/dL [facility] Blood 06/25/2023 1:50 AM EDT 06/25/2023 2:16 AM EDT Narrative Resulting Agency Comment Spec In Lab Eufemia Copeland MD CHEMISTRY ORDERABL ES Performing Organization Address [facility] [place] [address] * Magnesium (06/25/2023 1:50 AM EDT) Magnesium 0.99 0.69 - 1.07 mmol/L [facility] Blood 06/25/2023 1:50 AM EDT 06/25/2023 2:16 AM EDT Narrative Resulting Agency Comment Spec In Lab Eufemia Copeland MD CHEMISTRY ORDERABL ES Performing Organization Address [facility] [place]/[facility] [place] [address] * (ABNORMAL) pro-Brain Natriuretic Peptide (06/24/2023 3:38 AM EDT) NT-proBNP 1,239(H) <=124 pg/mL [facility] Blood Venous Draw / Unknown 06/24/2023 3:38 AM EDT 06/24/2023 3:49 AM EDT Narrative Resulting Agency Comment Spec In Lab Ailyn Irvin MD CHEMISTRY ORDERABLES Performing Organization Address City/[facility] [place]/ZIP Co de [place] [address] * Differential, Automated (06/24/2023 3:38 AM EDT) Neutrophil % 51.6 % [facility] Neutrophil Absolute 3.54 1.70 - 6.10 x10(3)/[facility] Lymph % 36.0 % [facility] Lymphocytes Abs 2.5 0.9 - 3.2 x10(3)/[facility] Monocyte % 7.8 % [facility] Monocyte Abs 0.5 0.3 - 0.9 x10(3)/[facility] Eos % 3.6 % [facility] [place] [place] Eosinophils Abs 0.2 0.0 - 0.4 x10(3)/[facility] Basophil % 0.7 % [facility] Baso Absolute 0.0 0.0 - 0.1 x10(3)/[facility] Immature Gran % 0.30 % [facility] Comment: Immature granulocytes(IG's)percentage and absolute count will include metamyelocytes, myelocytes, and promyelocytes. Blood smears from CBCs yielding IG's will be scanned manually for concordance. If this scan disagrees with the automated IG or if promyelocytes are noted, a manual differential will be performed. Immature Gran Absolute 0.02 0.00 - 0.04 x10(3)/[facility] Blood 06/24/2023 3:38 AM EDT 06/24/2023 3:49 AM EDT Narrative Resulting Agency Comment Spec In Lab Terrence Keating MD [place] [address] * Hemogram (06/24/2023 3:38 AM EDT) Pathologist [facility] White Blood Cell 6.9 4.0 - 9.5 x10(3)/[facility] Red Blood Cell 4.36 4.00 - 5.21 x10(6)/[facility] Hemoglobin 13.6 11.7 - 15.5 g/dL [facility] Hematocrit 40.7 35.7 - 45.8 % [facility] Mean Cell Volume 93.3 82.6 - 94.4 fL [facility] Mean Cell Hemoglobin 31.2 27.1 - 32.0 pg [facility] Mean Cell Hemoglobin Concentration 33.4 31.7 - 35.0 g/dL [facility] Platelet 220 145 - 357 x10(3)/[facility] RDW Standard Deviation 44.5 37.0 - 46.0 [facility] RDW coefficient of variation 13.0 11.5 - 14.1 % [facility] Mean Platelet Volume 10.8 7.6 - 12.9 [facility] NRBC% auto 0.0 % [facility] NRBC Absolute 0.000 0.000 - 0.000 x10(3)/[facility] Blood 06/24/2023 3:38 AM EDT 06/24/2023 3:49 AM EDT Narrative Resulting Agency Comment Spec In Lab Terrence Keating MD HEMATOLOGY ORDERABLE S [facility] [place] [address] * Heparin (unfractionated) Level (06/24/2023 3:38 AM EDT) UF Heparin 0.44 IU/mL [facility] Comment: [...] Lab Terrence Keating MD HEMATOLOGY ORDERABLE S [facility] [place] [address] * (ABNORMAL) Basic Metabolic Panel (non-fasting) (06/24/2023 3:38 AM EDT) Glucose 96 65 - 199 mg/dL [facility] Comment:Diabetes: >=200 mg/d L plus symptoms Blood Urea Nitrogen 20(H) 8 - 18 mg/dL [facility] Creatinine 1.14 0.70 - 1.20 mg/dL [facility] [...] questions. Chloride 104 98 - 107 mmol/L [facility] Carbon Dioxide 21(L) 22 - 31 mmol/L [facility] Anion Gap 13 5 - 15 mmol/L [facility] Calcium 9.1 8.5 - 10.5 mg/dL [facility] Est Glomerular Filtration Rate 57(L) >=60 mL/min/1. 73 m?? [facility] [...] ORDERABL ES Performing Organization Address [facility] [place]/[facility] Co de Phone Number [facility] [place] [address] * Phosphorus (06/24/2023 3:38 AM EDT) Phosphorus 4.1 2.5 - 4.5 mg/dL [facility] Blood 06/24/2023 3:38 AM EDT 06/24/2023 3:49 AM EDT Narrative Resulting Agency Comment Spec In Lab Eufemia Copeland MD CHEMISTRY ORDERABL ES Performing Organization Address [facility] Co de Phone Number [facility] [place] [address] * Magnesium (06/24/2023 3:38 AM EDT) Magnesium 0.96 0.69 - 1.07 mmol/L [facility] Blood 06/24/2023 3:38 AM EDT 06/24/2023 3:49 AM EDT Narrative Resulting Agency Comment Spec In Lab Eufemia Copeland MD CHEMISTRY ORDERABL ES Performing Organization Address [facility] Co de Phone Number [facility] [place] [address] * Heparin (unfractionated) Level (06/23/2023 9:24 PM EDT) UF Heparin 0.51 IU/mL [facility] Comment: [...] HEMATOLOGY ORDERABLE S Performing Organization Address City/State/[facility] Co de Phone Number [facility] [place] [address] * Duplex Study Visceral Arteries, Comp (06/23/2023 3:36 PM EDT) Pathologist [facility] VB Text Report Department: Vascular Surgery Lab Patient: [id number] (LOIDA ROQUE) CPT: [id number] Referring Physician: AILYN IRVIN ?? Phone: Indications: [...] 3:01 PM EDT) UF Heparin 0.90 IU/mL [facility] Comment: [...] [facility] [place]/ZIP Co de Phone Number [facility] [place] [address] * EKG 12 Lead (06/23/2023 9:54 AM EDT) Ventricular rate 48 BPM MUSE SYSTEM Atrial Rate 48 BPM MUSE SYSTEM P-R Interval 192 ms MUSE SYSTEM QRS Duration 92 ms MUSE SYSTEM Q-T Interval 462 ms MUSE SYSTEM QTC Calculated (Bezet) 412 ms MUSE SYSTEM Calculated P Pinon 21 degrees MUSE SYSTEM Calculated R Pinon 20 degrees MUSE SYSTEM Calculated T Pinon 16 degrees MUSE SYSTEM INTERPRETATION Sinus bradycardia Nonspecific ST and T wave abnormality Abnormal ECG When compared with ECG of 22-JUN-2023 11:13, Criteria for Septal infarct are no longer Present No significant change was found Confirmed by MD [place], Gus ([id number]) on 06/23/2023 12:59:50 PM MUSE SYSTEM 06/23/2023 9:54 AM EDT 06/23/2023 12:59 PM EDT Ailyn Irvin MD ECG ORDERABLES Performing Organization Address City/[facility]/ZIP Co de Phone Number MUSE SYSTEM * Differential, Automated (06/23/2023 4:12 AM EDT) Neutrophil % 52.8 % [facility] Neutrophil Absolute 4.30 1.70 - 6.10 x10(3)/[facility] Lymph % 33.9 % [facility] Lymphocytes Abs 2.8 0.9 - 3.2 x10(3)/[facility] Monocyte % 8.3 % [facility] Monocyte Abs 0.7 0.3 - 0.9 x10(3)/[facility] Eos % 3.9 % [facility] Eosinophils Abs 0.3 0.0 - 0.4 x10(3)/[facility] Basophil % 0.7 % [facility] Baso Absolute 0.1 0.0 - 0.1 x10(3)/[facility] Immature Gran % 0.40 % [facility] Comment: Immature granulocytes(IG's)percentage and absolute count will include metamyelocytes, myelocytes, and promyelocytes. Blood smears from CBCs yielding IG's will be scanned manually for concordance. If this scan disagrees with the automated IG or if promyelocytes are noted, a manual differential will be performed. Immature Gran Absolute 0.03 0.00 - 0.04 x10(3)/[facility] Blood 06/23/2023 4:12 AM EDT 06/23/2023 4:38 AM EDT Narrative Resulting Agency Comment Spec In Lab Terrence Keating MD HEMATOLOGY ORDERABLE S [facility] [place] [address] * Hemogram (06/23/2023 4:12 AM EDT) White Blood Cell 8.2 4.0 - 9.5 x10(3)/[facility] Red Blood Cell 4.59 4.00 - 5.21 x10(6)/[facility] Hemoglobin 14.3 11.7 - 15.5 g/dL [facility] Hematocrit 43.1 35.7 - 45.8 % [facility] Mean Cell Volume 93.9 82.6 - 94.4 fL [facility] Mean Cell Hemoglobin 31.2 27.1 - 32.0 pg [facility] Mean Cell Hemoglobin Concentration 33.2 31.7 - 35.0 g/dL [facility] Platelet 233 145 - 357 x10(3)/[facility] RDW Standard Deviation 44.2 37.0 - 46.0 fL [facility] RDW coefficient of variation 13.0 11.5 - 14.1 % [facility] Mean Platelet Volume 11.3 7.6 - 12.9 fL [facility] NRBC% auto 0.0 % [facility] NRBC Absolute 0.000 0.000 - 0.000 x10(3)/[facility] Blood 06/23/2023 4:12 AM EDT 06/23/2023 4:38 AM EDT Narrative Resulting Agency Comment Spec In Lab Terrence Keating MD HEMATOLOGY ORDERABLE S Performing Organization Address City/State/[facility] Co de Phone Number [facility] [place] [address] * (ABNORMAL) Heparin (unfractionated) Level (06/23/2023 4:12 AM EDT) UF Heparin 1.95(Crit ical) IU/mL [facility] [...] Lab Terrence Keating MD HEMATOLOGY ORDERABLE S [facility] [place] [address] * (ABNORMAL) Basic Metabolic Panel (non-fasting) (06/23/2023 4:12 AM EDT) Glucose 87 65 - 199 mg/dL [facility] Comment:Diabetes: >=200 mg/d L plus symptoms Blood Urea Nitrogen 23(H) 8 - 18 mg/dL [facility] Creatinine 1.08 0.70 - 1.20 mg/dL [facility] Sodium 137 135 - 145 mmol/L [facility] Potassium 3.8 3.5 - 5.0 mmol/L [facility] Comment: Please note: ??Patients with WBC >100,000 may have falsely elevated Potassium levels. ??For accurate Potassium quantification in these patients send serum separator tube (gold top) for subsequent determinations. ??Contact the Clinical Chemistry Laboratory if there are any questions. Chloride 103 98 - 107 mmol/L [facility] Carbon Dioxide 22 22 - 31 mmol/L [facility] Anion Gap 12 5 - 15 mmol/L [facility] Calcium 9.3 8.5 - 10.5 mg/dL [facility] Est Glomerular Filtration Rate 61 >=60 mL/min/1. 73 m?? [facility] [...] ORDERABL ES Performing Organization Address [facility] de Phone Number [facility] [place] [address] * Phosphorus (06/23/2023 4:12 AM EDT) Phosphorus 4.5 2.5 - 4.5 mg/dL [facility] Blood 06/23/2023 4:12 AM EDT 06/23/2023 4:38 AM EDT Narrative Resulting Agency Comment Spec In Lab Eufemia Copeland MD CHEMISTRY ORDERABL ES Performing Organization Address [facility] de Phone Number [facility] [place] [address] * Magnesium (06/23/2023 4:12 AM EDT) Magnesium 1.03 0.69 - 1.07 mmol/L [facility] Blood 06/23/2023 4:12 AM EDT 06/23/2023 4:38 AM EDT Narrative Resulting Agency Comment Spec In Lab Eufemia Copeland MD CHEMISTRY ORDERABL ES Performing Organization Address [facility] de Phone Number [facility] [place] [address] * ECHO LMTD W CONTRAST W LMTD SPEC DOPP COLOR DOPP (06/22/2023 4:25 PM EDT) Anatomical Region Laterality Modality Cardiac Other 06/22/2023 2:49 PM EDT Narrative 06/22/2023 4:42 PM EDT [address] [place] [address] ? Echocardiogram Report Name: LOIDA ROQUE ?Study Date: 06/22/2023 02:49 PM ?Patient Location: [place] [id number] ??HR: 57 : 1970 ?Height: 162 cm ? Account: [id number] Age: 53 yrs ?Weight: 102 kg Gender: [...] slight decrease in LV systolic function. Procedure Complete-[id number]. Satisfactory quality. There is normal sinus rhythm. [...] Procedure Note Jose Gallegos MD - 06/22/[address] [place] [address] Echocardiogram Report Name: LOIDA ROQUE Study Date: 06/22/2023 02:49 PM Patient Location: [place] [id number] A HR:57 : 1970 Height: 162 cmAccount: [id number] Age: 53 yrs Weight: 102 kg Gender: [...] a slightdecrease in LV systolic function. Procedure Complete-[id number]. Satisfactory quality. There is normal sinus rhythm. [...] * (ABNORMAL) Troponin (06/22/2023 2:38 PM EDT) [facility] Troponin-T, High Sensitivity 22(H) <=14 ng/L [facility] [...] can be found in the [facility] Test Catalog Troponin - [facility] Test Catalog Reference: Fourth Montgomery Definition of Myocardial Infarction. Journal of the [place] [employer] 2018;72:4691-3837 Blood 06/22/2023 2:38 PM EDT 06/22/2023 2:50 PM EDT Narrative Resulting Agency Comment Spec In Lab Ailyn Irvin MD CHEMISTRY ORDERABLES Performing Organization Address [facility] Co de Phone Number [facility] [place] [address] * Duplex for DVT, Arm, Unilat (06/22/2023 2:24 PM EDT) VB Text Report Department: Vascular Surgery Lab Patient: [id number] (LOIDA ROQUE) CPT: [id number] Referring Physician: AILYN IRVIN ?? 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 Ailyn Irvin MD IMG DX ORDERABLES * (ABNORMAL) Troponin (06/22/2023 11:24 AM EDT) [facility] Troponin-T, High Sensitivity 22(H) <=14 ng/L [facility] [...] can be found in the [facility] Test Catalog Troponin - [facility] Test Catalog Reference: Fourth Montgomery Definition of Myocardial Infarction. Journal of the [place] [employer] 2018;72:6185-1791 Blood 06/22/2023 11:2 4 AM EDT 06/22/2023 11:44 AM EDT Narrative Resulting Agency Comment Spec In Lab Ailyn Irvin MD CHEMISTRY ORDERABLES [facility] [place] [address] * EKG 12 Lead (06/22/2023 11:13 AM EDT) Ventricular rate 63 BPM MUSE SYSTEM Atrial Rate 63 BPM MUSE SYSTEM P-R Interval 162 ms MUSE SYSTEM QRS Duration 86 ms MUSE SYSTEM Q-T Interval 382 ms MUSE SYSTEM QTC Calculated (Bezet) 390 ms MUSE SYSTEM Calculated P Pinon 24 degrees MUSE SYSTEM Calculated R Pinon 32 degrees MUSE SYSTEM Calculated T Pinon -2 degrees MUSE SYSTEM INTERPRETATION Normal sinus rhythm Septal infarct (cited on or before 22-JUN-2023) Possible Lateral infarct , age undetermined ST & T wave abnormality, consider inferolateral ischemia Abnormal ECG When compared with ECG of 22-JUN-2023 10:55, No significant change was found Confirmed by MD Petey, Kia ([id number]) on 06/22/2023 3:56:31 PM MUSE SYSTEM 06/22/2023 11:1 3 AM EDT 06/22/2023 3:56 PM EDT Ailyn Irvin MD ECG ORDERABLES Performing Organization Address City/[facility]/ZIP Co de Phone Number MUSE SYSTEM * EKG 12 Lead (06/22/2023 10:55 AM EDT) Ventricular rate 56 BPM MUSE SYSTEM Atrial Rate 56 BPM MUSE SYSTEM P-R Interval 168 ms MUSE SYSTEM QRS Duration 88 ms MUSE SYSTEM Q-T Interval 426 ms MUSE SYSTEM QTC Calculated (Bezet) 411 ms MUSE SYSTEM Calculated P Pinon 22 degrees MUSE SYSTEM Calculated R Pinon 20 degrees MUSE SYSTEM Calculated T Pinon 10 degrees MUSE SYSTEM INTERPRETATION Sinus bradycardia Septal infarct , age undetermined ST & T wave abnormality, consider inferolateral ischemia Abnormal ECG When compared with ECG of 21-JUN-2023 10:06, Septal infarct is now Present Confirmed by MD Angelo Danette ([id number]) on 06/22/2023 3:55:53 PM MUSE SYSTEM 06/22/2023 10:5 5 AM EDT 06/22/2023 3:55 PM EDT Ailyn Irvin MD ECG ORDERABLES Performing Organization Address [facility] Co de Phone Number MUSE SYSTEM * Differential, Automated (06/22/2023 4:34 AM EDT) Neutrophil % 54.4 % [facility] Neutrophil Absolute 4.07 1.70 - 6.10 x10(3)/[facility] Lymph % 30.6 % [facility] Lymphocytes Abs 2.3 0.9 - 3.2 x10(3)/[facility] Monocyte % 9.9 % [facility] Monocyte Abs 0.7 0.3 - 0.9 x10(3)/[facility] Eos % 4.3 % [facility] Eosinophils Abs 0.3 0.0 - 0.4 x10(3)/[facility] Basophil % 0.7 % [facility] Baso Absolute 0.0 0.0 - 0.1 x10(3)/[facility] Immature Gran % 0.10 % [facility] Comment: Immature granulocytes(IG's)percentage and absolute count will include metamyelocytes, myelocytes, and promyelocytes. Blood smears from CBCs yielding IG's will be scanned manually for concordance. If this scan disagrees with the automated IG or if promyelocytes are noted, a manual differential will be performed. Immature Gran Absolute 0.01 0.00 - 0.04 x10(3)/[facility] Blood 06/22/2023 4:34 AM EDT 06/22/2023 4:42 AM EDT Narrative Resulting Agency Comment Spec In Lab Terrence Keating MD HEMATOLOGY ORDERABLE S [facility] [place] [address] * (ABNORMAL) Hemogram (06/22/2023 4:34 AM EDT) White Blood Cell 7.5 4.0 - 9.5 x10(3)/[facility] Red Blood Cell 4.04 4.00 - 5.21 x10(6)/[facility] Hemoglobin 12.8 11.7 - 15.5 g/dL [facility] Hematocrit 39.1 35.7 - 45.8 % [facility] Mean Cell Volume 96.8(H) 82.6 - 94.4 fL [facility] Mean Cell Hemoglobin 31.7 27.1 - 32.0 pg [facility] Mean Cell Hemoglobin Concentration 32.7 31.7 - 35.0 g/dL [facility] Platelet 225 145 - 357 x10(3)/[facility] RDW Standard Deviation 45.9 37.0 - 46.0 fL [facility] RDW coefficient of variation 13.0 11.5 - 14.1 % [facility] Mean Platelet Volume 10.6 7.6 - 12.9 fL [facility] NRBC% auto 0.0 % [facility] NRBC Absolute 0.000 0.000 - 0.000 x10(3)/mc L [facility] Blood 06/22/2023 4:34 AM EDT 06/22/2023 4:42 AM EDT Narrative Resulting Agency Comment Spec In Lab Terrence Keating MD HEMATOLOGY ORDERABLE S [facility] [place] [address] * (ABNORMAL) Basic Metabolic Panel (non-fasting) (06/22/2023 4:34 AM EDT) Glucose 94 65 - 199 mg/dL [facility] Comment:Diabetes: >=200 mg/d L plus symptoms Blood Urea Nitrogen 22(H) 8 - 18 mg/dL [facility] Creatinine 1.19 0.70 - 1.20 mg/dL [facility] Sodium 138 135 - 145 mmol/L [facility] Potassium 3.9 3.5 - 5.0 mmol/L [facility] Comment: Please note: ??Patients with WBC >100,000 may have falsely elevated Potassium levels. ??For accurate Potassium quantification in these patients send serum separator tube (gold top) for subsequent determinations. ??Contact the Clinical Chemistry Laboratory if there are any questions. Chloride 102 98 - 107 mmol/L [facility] Carbon Dioxide 19(L) 22 - 31 mmol/L [facility] Anion Gap 17(H) 5 - 15 mmol/L [facility] Calcium 9.4 8.5 - 10.5 mg/dL [facility] Est Glomerular Filtration Rate 54(L) >=60 mL/min/1. 73 m?? [facility] [...] ORDERABL ES Performing Organization Address [facility] Co de Phone Number [facility] [place] [address] * (ABNORMAL) Phosphorus (06/22/2023 4:34 AM EDT) Phosphorus 4.9(H) 2.5 - 4.5 mg/dL [facility] Blood 06/22/2023 4:34 AM EDT 06/22/2023 4:42 AM EDT Narrative Resulting Agency Comment Spec In Lab Eufemia Copeland MD CHEMISTRY ORDERABL ES Performing Organization Address [facility] Co de Phone Number [facility] [place] [address] * Magnesium (06/22/2023 4:34 AM EDT) Magnesium 1.02 0.69 - 1.07 mmol/L [facility] Blood 06/22/2023 4:34 AM EDT 06/22/2023 4:42 AM EDT Narrative Resulting Agency Comment Spec In Lab Eufemia Copeland MD CHEMISTRY ORDERABL ES Performing Organization Address [facility] Co de Phone Number [facility] [place] [address] * CT Abdomen & Pelvis w Contrast [...] education 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 Eufemia Copealnd MD IMG CT ORDERABLES * EKG 12 Lead (06/21/2023 10:06 AM EDT) Pathologist [facility] Ventricular rate 51 BPM MUSE SYSTEM Atrial Rate 51 BPM MUSE SYSTEM P-R Interval 176 ms MUSE SYSTEM QRS Duration 92 ms MUSE SYSTEM Q-T Interval 450 ms MUSE SYSTEM QTC Calculated (Bezet) 414 ms MUSE SYSTEM Calculated P Pinon 17 degrees MUSE SYSTEM Calculated R Pinon 35 degrees MUSE SYSTEM Calculated T Pinon 13 degrees MUSE SYSTEM INTERPRETATION Sinus bradycardia [...] (ABNORMAL) Troponin (06/21/2023 9:45 AM EDT) Pathologist [facility] Troponin-T, High Sensitivity 22(H) <=14 ng/L [facility] [...] can be found in the [facility] Test Catalog Troponin - [facility] Test Catalog Reference: Fourth Montgomery Definition of Myocardial Infarction. Journal of the [place] [employer] 2018;72:7172-0707 Blood 06/21/2023 9:45 AM EDT 06/21/2023 10:08 AM EDT Narrative Resulting Agency Comment Spec In Lab Eufemia Copeland MD CHEMISTRY ORDERABL ES Performing Organization Address City/[facility]/ZIP Co de Phone Number [facility] [place] [address] * (ABNORMAL) pro-Brain Natriuretic Peptide (06/21/2023 5:58 AM EDT) NT-proBNP 1,370(H) <=124 pg/mL [facility] Blood Venous Draw / Unknown 06/21/2023 5:58 AM EDT 06/21/2023 7:28 AM EDT Narrative Resulting Agency Comment Spec In Lab Eufemia Copeland MD CHEMISTRY ORDERABL ES Performing Organization Address [facility]/ZIP Co de Phone Number [facility] [place] [address] * Potassium (06/21/2023 5:58 AM EDT) Potassium 4.0 3.5 - 5.0 mmol/L [facility] [...] MD CHEMISTRY ORDERABL ES Performing Organization Address City/[facility]/ZIP Co de Phone Number [facility] [place] [address] * Differential, Automated (06/21/2023 3:25 AM EDT) Pathologist [facility] Neutrophil % 54.0 % [facility] Neutrophil Absolute 5.02 1.70 - 6.10 x10(3)/[facility] Lymph % 31.8 % [facility] Lymphocytes Abs 3.0 0.9 - 3.2 x10(3)/[facility] Monocyte % 8.9 % [facility] Monocyte Abs 0.8 0.3 - 0.9 x10(3)/[facility] Eos % 4.2 % [facility] Eosinophils Abs 0.4 0.0 - 0.4 x10(3)/[facility] Basophil % 0.8 % [facility] Baso Absolute 0.1 0.0 - 0.1 x10(3)/[facility] Immature Gran % 0.30 % [facility] Comment: Immature granulocytes(IG's)percentage and absolute count will include metamyelocytes, myelocytes, and promyelocytes. Blood smears from CBCs yielding IG's will be scanned manually for concordance. If this scan disagrees with the automated IG or if promyelocytes are noted, a manual differential will be performed. Immature Gran Absolute 0.03 0.00 - 0.04 x10(3)/[facility] Blood 06/21/2023 3:25 AM EDT 06/21/2023 3:45 AM EDT Narrative Resulting Agency Comment Spec In Lab Terrence Keating MD HEMATOLOGY ORDERABLE S [facility] [place] [address] * Hemogram (06/21/2023 3:25 AM EDT) [facility] White Blood Cell 9.3 4.0 - 9.5 x10(3)/[facility] Red Blood Cell 4.74 4.00 - 5.21 x10(6)/[facility] Hemoglobin 14.9 11.7 - 15.5 g/dL [facility] Hematocrit 44.2 35.7 - 45.8 % [facility] Mean Cell Volume 93.2 82.6 - 94.4 fL [facility] Mean Cell Hemoglobin 31.4 27.1 - 32.0 pg [facility] Mean Cell Hemoglobin Concentration 33.7 31.7 - 35.0 g/dL [facility] Platelet 279 145 - 357 x10(3)/[facility] RDW Standard Deviation 44.7 37.0 - 46.0 [facility] RDW coefficient of variation 13.1 11.5 - 14.1 % [facility] Mean Platelet Volume 11.1 7.6 - 12.9 fL [facility] NRBC% auto 0.0 % [facility] NRBC Absolute 0.000 0.000 - 0.000 x10(3)/[facility] Blood 06/21/2023 3:25 AM EDT 06/21/2023 3:45 AM EDT Narrative Resulting Agency Comment Spec In Lab Terrence Keating MD HEMATOLOGY ORDERABLE S [facility] [place] [address] * (ABNORMAL) Basic Metabolic Panel (non-fasting) (06/21/2023 3:25 AM EDT) [facility] Glucose 95 65 - 199 mg/dL [facility] Comment:Diabetes: >=200 mg/d L plus symptoms Blood Urea Nitrogen 27(H) 8 - 18 mg/dL [facility] Creatinine 1.11 0.70 - 1.20 mg/dL [facility] Sodium 138 135 - 145 mmol/L [facility] Potassium Not Perf 3.5 - 5.0 [facility] Comment: Unable to [...] questions. Chloride 100 98 - 107 mmol/L [facility] Carbon Dioxide 26 22 - 31 mmol/L [facility] Anion Gap 12 5 - 15 mmol/L [facility] Calcium 9.7 8.5 - 10.5 mg/dL [facility] Est Glomerular Filtration Rate 59(L) >=60 mL/min/1. 73 m?? [facility] [...] Lab Eufemia Copeland MD CHEMISTRY ORDERABL ES [facility] [place] [address] * (ABNORMAL) Phosphorus (06/21/2023 3:25 AM EDT) Phosphorus 5.1(H) 2.5 - 4.5 mg/dL [facility] Blood 06/21/2023 3:25 AM EDT 06/21/2023 3:45 AM EDT Narrative Resulting Agency Comment Spec In Lab Eufemia Copeland MD CHEMISTRY ORDERABL ES Performing Organization Address City/[facility]/ZIP Co de Phone Number [facility] [place] [address] * Magnesium (06/21/2023 3:25 AM EDT) Pathologist [facility] Magnesium 1.04 0.69 - 1.07 mmol/L [facility] Blood 06/21/2023 3:25 AM EDT 06/21/2023 3:45 AM EDT Narrative Resulting Agency Comment Spec In Lab Eufemia Copeland MD CHEMISTRY ORDERABL ES Performing Organization Address City/[facility] Co de Phone Number [facility] [place] [address] * (ABNORMAL) Differential, Automated (06/20/2023 3:32 AM EDT) Pathologist [facility] Neutrophil % 52.5 % [facility] Neutrophil Absolute 5.28 1.70 - 6.10 x10(3)/mc L [facility] Lymph % 32.4 % [facility] Lymphocytes Abs 3.3(H) 0.9 - 3.2 x10(3)/mc L [facility] Monocyte % 9.7 % [facility] Monocyte Abs 1.0(H) 0.3 - 0.9 x10(3)/mc L [facility] Eos % 4.3 % [facility] Eosinophils Abs 0.4 0.0 - 0.4 x10(3)/mc L [facility] Basophil % 0.7 % [facility] Baso Absolute 0.1 0.0 - 0.1 x10(3)/mc L [facility] Immature Gran % 0.40 % [facility] Comment: Immature granulocytes(IG's)percentage and absolute count will include metamyelocytes, myelocytes, and promyelocytes. Blood smears from CBCs yielding IG's will be scanned manually for concordance. If this scan disagrees with the automated IG or if promyelocytes are noted, a manual differential will be performed. Immature Gran Absolute 0.04 0.00 - 0.04 x10(3)/ L [facility] Blood 06/20/2023 3:32 AM EDT 06/20/2023 3:47 AM EDT Narrative Resulting Agency Comment Spec In Lab Terrence Keating MD HEMATOLOGY ORDERABLE S [facility] [place] [address] * (ABNORMAL) Hemogram (06/20/2023 3:32 AM EDT) White Blood Cell 10.1(H) 4.0 - 9.5 x10(3)/[facility] LAB[facility]AT[facility] Red Blood Cell 4.57 4.00 - 5.21 x10(6)/ L [facility] Hemoglobin 14.2 11.7 - 15.5 g/dL [facility] Hematocrit 41.5 35.7 - 45.8 % [facility] Mean Cell Volume 90.8 82.6 - 94.4 fL [facility] Mean Cell Hemoglobin 31.1 27.1 - 32.0 pg [facility] Mean Cell Hemoglobin Concentration 34.2 31.7 - 35.0 g/dL [facility] Platelet 253 145 - 357 x10(3)/ L [facility] RDW Standard Deviation 43.7 37.0 - 46.0 fL [facility] RDW coefficient of variation 13.2 11.5 - 14.1 % [facility] Mean Platelet Volume 10.8 7.6 - 12.9 fL [facility] NRBC% auto 0.0 % [facility] NRBC Absolute 0.000 0.000 - 0.000 x10(3)/mc L [facility] Blood 06/20/2023 3:32 AM EDT 06/20/2023 3:47 AM EDT Narrative Resulting Agency Comment Spec In Lab Terrence Keating MD HEMATOLOGY ORDERABLE S [facility] [place] [address] * (ABNORMAL) Basic Metabolic Panel (non-fasting) (06/20/2023 3:32 AM EDT) Glucose 99 65 - 199 mg/dL [facility] Comment:Diabetes: >=200 mg/d L plus symptoms Blood Urea Nitrogen 26(H) 8 - 18 mg/dL [facility] Creatinine 1.12 0.70 - 1.20 mg/dL [facility] Sodium 137 135 - 145 mmol/L [facility] Potassium 3.7 3.5 - 5.0 mmol/L [facility] Comment: Please note: ??Patients with WBC >100,000 may have falsely elevated Potassium levels. ??For accurate Potassium quantification in these patients send serum separator tube (gold top) for subsequent determinations. ??Contact the Clinical Chemistry Laboratory if there are any questions. Chloride 102 98 - 107 mmol/L [facility] Carbon Dioxide 22 22 - 31 mmol/L [facility] Anion Gap 13 5 - 15 mmol/L [facility] Calcium 9.4 8.5 - 10.5 mg/dL [facility] Est Glomerular Filtration Rate 58(L) >=60 mL/min/1. 73 m?? [facility] ORDERABL ES Performing Organization Address [facility] Co de Phone Number [facility] [place] [address] * Phosphorus (06/20/2023 3:32 AM EDT) Phosphorus 4.3 2.5 - 4.5 mg/dL [facility] Blood 06/20/2023 3:32 AM EDT 06/20/2023 3:47 AM EDT Narrative Resulting Agency Comment Spec In Lab Eufemia Copeland MD CHEMISTRY ORDERABL ES Performing Organization Address [facility] Co de Phone Number [facility] [place] [address] * Magnesium (06/20/2023 3:32 AM EDT) Magnesium 1.00 0.69 - 1.07 mmol/L [facility] Blood 06/20/2023 3:32 AM EDT 06/20/2023 3:47 AM EDT Narrative Resulting Agency Comment Spec In Lab Eufemia Copeland MD CHEMISTRY ORDERABL ES Performing Organization Address [facility] Co de Phone Number [facility] [place] [address] * Phosphorus (06/19/2023 5:26 PM EDT) Phosphorus 4.0 2.5 - 4.5 mg/dL [facility] Blood 06/19/2023 5:26 PM EDT 06/19/2023 5:32 PM EDT Narrative Resulting Agency Comment Spec In Lab Eufemia Copeland MD CHEMISTRY ORDERABL ES Performing Organization Address [facility] Co de Phone Number [facility] [place] [address] * Magnesium (06/19/2023 5:26 PM EDT) Magnesium 0.98 0.69 - 1.07 mmol/L [facility] Blood 06/19/2023 5:26 PM EDT 06/19/2023 5:32 PM EDT Narrative Resulting Agency Comment Spec In Lab Eufemia Copeland MD CHEMISTRY ORDERABL ES Performing Organization Address [facility] Co de Phone Number [facility] [place] [address] * (ABNORMAL) Basic Metabolic Panel (non-fasting) (06/19/2023 5:26 PM EDT) Glucose 105 65 - 199 mg/dL [facility] Comment:Diabetes: >=200 mg/d L plus symptoms Blood Urea Nitrogen 21(H) 8 - 18 mg/dL [facility] Creatinine 1.06 0.70 - 1.20 mg/dL [facility] Sodium 139 135 - 145 mmol/L [facility] Potassium 3.9 3.5 - 5.0 mmol/L [facility] Comment: Please note: ??Patients with WBC >100,000 may have falsely elevated Potassium levels. ??For accurate Potassium quantification in these patients send serum separator tube (gold top) for subsequent determinations. ??Contact the Clinical Chemistry Laboratory if there are any questions. Chloride 103 98 - 107 mmol/L [facility] Carbon Dioxide 22 22 - 31 mmol/L [facility] Anion Gap 14 5 - 15 mmol/L [facility] Calcium 9.5 8.5 - 10.5 mg/dL [facility] Est Glomerular Filtration Rate 62 >=60 mL/min/1. 73 m?? [facility] [...] MD CHEMISTRY ORDERABL ES Performing Organization Address City/[facility]/ZIP Co de Phone Number [facility] [place] [address] * EKG 12 Lead (06/19/2023 4:24 AM EDT) Ventricular rate 66 BPM MUSE SYSTEM Atrial Rate 66 BPM MUSE SYSTEM P-R Interval 188 ms MUSE SYSTEM QRS Duration 92 ms MUSE SYSTEM Q-T Interval 484 ms MUSE SYSTEM QTC Calculated (Bezet) 507 ms MUSE SYSTEM Calculated P Pinon 32 degrees MUSE SYSTEM Calculated R Pinon 22 degrees MUSE SYSTEM Calculated T Pinon 47 degrees MUSE SYSTEM INTERPRETATION Normal sinus rhythm Nonspecific ST abnormality Prolonged QT Abnormal ECG When compared with ECG of 15-JUN-2023 10:50, No significant change was found Confirmed by MD AKIRA, CINDY ([id number]) on 06/19/2023 2:42:42 PM MUSE SYSTEM 06/19/2023 4:24 AM EDT 06/19/2023 2:42 PM EDT Terrence Keating MD ECG ORDERABLES Performing Organization Address City/[facility]/ZIP Co de Phone Number MUSE SYSTEM * (ABNORMAL) Basic Metabolic Panel (non-fasting) (06/19/2023 3:22 AM EDT) Glucose 101 65 - 199 mg/dL [facility] Comment:Diabetes: >=200 mg/d L plus symptoms Blood Urea Nitrogen 24(H) 8 - 18 mg/dL [facility] Creatinine 1.04 0.70 - 1.20 mg/dL [facility] Sodium 137 135 - 145 mmol/L [facility] Potassium 3.6 3.5 - 5.0 mmol/L [facility] Comment: Please note: ??Patients with WBC >100,000 may have falsely elevated Potassium levels. ??For accurate Potassium quantification in these patients send serum separator tube (gold top) for subsequent determinations. ??Contact the Clinical Chemistry Laboratory if there are any questions. Chloride 100 98 - 107 mmol/L [facility] Carbon Dioxide Not Perf - [facility] Comment:Add-on request. Samp le too old to perform test. Anion Gap Unable to Calculate 5 - 15 mmol/L [facility] Calcium 9.4 8.5 - 10.5 mg/dL [facility] Est Glomerular Filtration Rate 64 >=60 mL/min/1 .73 m?? [facility] Comment: [...] MD CHEMISTRY ORDERABL ES Performing Organization Address City/[facility]/ZIP Co de Phone Number [facility] [place] [address] * Differential, Automated (06/19/2023 3:22 AM EDT) Neutrophil % 54.0 % [facility] Neutrophil Absolute 5.08 1.70 - 6.10 x10(3)/[facility] LAB[facility] Lymph % 30.7 % [facility] Lymphocytes Abs 2.9 0.9 - 3.2 x10(3)/[facility] Monocyte % 10.0 % [facility] Monocyte Abs 0.9 0.3 - 0.9 x10(3)/[facility] Eos % 4.5 % [facility] Eosinophils Abs 0.4 0.0 - 0.4 x10(3)/[facility] Basophil % 0.6 % [facility] Baso Absolute 0.1 0.0 - 0.1 x10(3)/[facility] Immature Gran % 0.20 % [facility] Comment: Immature granulocytes(IG's)percentage and absolute count will include metamyelocytes, myelocytes, and promyelocytes. Blood smears from CBCs yielding IG's will be scanned manually for concordance. If this scan disagrees with the automated IG or if promyelocytes are noted, a manual differential will be performed. Immature Gran Absolute 0.02 0.00 - 0.04 x10(3)/[facility] Blood 06/19/2023 3:22 AM EDT 06/19/2023 3:47 AM EDT Narrative Resulting Agency Comment Spec In Lab Terrence Keating MD HEMATOLOGY ORDERABLE S Performing Organization Address City/[facility]/ZIP Co de Phone Number [facility] [place] [address] * Hemogram (06/19/2023 3:22 AM EDT) White Blood Cell 9.4 4.0 - 9.5 x10(3)/[facility] Red Blood Cell 4.48 4.00 - 5.21 x10(6)/[facility] Hemoglobin 13.9 11.7 - 15.5 g/dL [facility] Hematocrit 41.7 35.7 - 45.8 % [facility] Mean Cell Volume 93.1 82.6 - 94.4 fL [facility] Mean Cell Hemoglobin 31.0 27.1 - 32.0 pg [facility] Mean Cell Hemoglobin Concentration 33.3 31.7 - 35.0 g/dL [facility] Platelet 244 145 - 357 x10(3)/[facility] RDW Standard Deviation 44.2 37.0 - 46.0 [facility] RDW coefficient of variation 12.9 11.5 - 14.1 % [facility] Mean Platelet Volume 10.9 7.6 - 12.9 fL [facility] NRBC% auto 0.0 % [facility] NRBC Absolute 0.000 0.000 - 0.000 x10(3)/[facility] Blood 06/19/2023 3:22 AM EDT 06/19/2023 3:47 AM EDT Narrative Resulting Agency Comment Spec In Lab Terrence Keating MD HEMATOLOGY ORDERABLE S [facility] [place] [address] * Phosphorus (06/19/2023 3:22 AM EDT) Phosphorus 4.1 2.5 - 4.5 mg/dL [facility] Blood 06/19/2023 3:22 AM EDT 06/19/2023 3:47 AM EDT Narrative Resulting Agency Comment Spec In Lab Eufemia Copeland MD CHEMISTRY ORDERABL ES Performing Organization Address City/[facility]/ZIP Co de Phone Number [facility] [place] [address] * Magnesium (06/19/2023 3:22 AM EDT) Magnesium 1.00 0.69 - 1.07 mmol/L [facility] Blood 06/19/2023 3:22 AM EDT 06/19/2023 3:47 AM EDT Narrative Resulting Agency Comment Spec In Lab Eufemia Copeland MD CHEMISTRY ORDERABL ES Performing Organization Address [facility] Co de Phone Number [facility] [place] [address] * (ABNORMAL) Basic Metabolic Panel (non-fasting) (06/18/2023 5:17 PM EDT) Glucose 115 65 - 199 mg/dL [facility] Comment:Diabetes: >=200 mg/d L plus symptoms Blood Urea Nitrogen 22(H) 8 - 18 mg/dL [facility] Creatinine 1.12 0.70 - 1.20 mg/dL [facility] [...] questions. Chloride 101 98 - 107 mmol/L [facility] Carbon Dioxide 22 22 - 31 mmol/L [facility] Anion Gap 14 5 - 15 mmol/L [facility] Calcium 9.6 8.5 - 10.5 mg/dL [facility] Est Glomerular Filtration Rate 58(L) >=60 mL/min/1. 73 m?? [facility] [...] Lab Eufemia Copeland MD CHEMISTRY ORDERABL ES [facility] [place] [address] * (ABNORMAL) Basic Metabolic Panel (non-fasting) (06/18/2023 4:19 AM EDT) Pathologist [facility] Glucose 96 65 - 199 mg/dL [facility] Comment:Diabetes: >=200 mg/d L plus symptoms Blood Urea Nitrogen 22(H) 8 - 18 mg/dL [facility] Creatinine 0.93 0.70 - 1.20 mg/dL [facility] [...] 107 mmol/L [facility] Carbon Dioxide Not Perf 22 - 31 [facility] Comment:Add-on request. Samp le too old to perform test. Anion Gap Unable to Calculate 5 - 15 mmol/L [facility] Calcium 9.5 8.5 - 10.5 mg/dL [facility] Est Glomerular Filtration Rate 73 >=60 mL/min/1 .73 m?? [facility] Comment: [...] Lab Eufemia Copeland MD CHEMISTRY ORDERABL ES [facility] [place] [id number] * Differential, Automated (06/18/2023 4:19 AM EDT) Neutrophil % 54.1 % [facility] Neutrophil Absolute 4.52 1.70 - 6.10 x10(3)/[facility] Lymph % 31.0 % [facility] Lymphocytes Abs 2.6 0.9 - 3.2 x10(3)/[facility] Monocyte % 9.2 % [facility] Monocyte Abs 0.8 0.3 - 0.9 x10(3)/[facility] Eos % 4.9 % [facility] Eosinophils Abs 0.4 0.0 - 0.4 x10(3)/[facility] Basophil % 0.6 % [facility] Baso Absolute 0.0 0.0 - 0.1 x10(3)/[facility] Immature Gran % 0.20 % [facility] Comment: Immature granulocytes(IG's)percentage and absolute count will include metamyelocytes, myelocytes, and promyelocytes. Blood smears from CBCs yielding IG's will be scanned manually for concordance. If this scan disagrees with the automated IG or if promyelocytes are noted, a manual differential will be performed. Immature Gran Absolute 0.02 0.00 - 0.04 x10(3)/[facility] Blood 06/18/2023 4:19 AM EDT 06/18/2023 4:40 AM EDT Narrative Resulting Agency Comment Spec In Lab Terrence Keating MD HEMATOLOGY ORDERABLE S [facility] [place] [address] * Hemogram (06/18/2023 4:19 AM EDT) White Blood Cell 8.4 4.0 - 9.5 x10(3)/[facility] Red Blood Cell 4.70 4.00 - 5.21 x10(6)/[facility] Hemoglobin 14.5 11.7 - 15.5 g/dL [facility] Hematocrit 42.8 35.7 - 45.8 % [facility] Mean Cell Volume 91.1 82.6 - 94.4 fL [facility] Mean Cell Hemoglobin 30.9 27.1 - 32.0 pg [facility] Mean Cell Hemoglobin Concentration 33.9 31.7 - 35.0 g/dL [facility] Platelet 258 145 - 357 x10(3)/[facility] RDW Standard Deviation 43.6 37.0 - 46.0 fL [facility] RDW coefficient of variation 13.0 11.5 - 14.1 % [facility] Mean Platelet Volume 10.7 7.6 - 12.9 fL [facility] NRBC% auto 0.0 % [facility] NRBC Absolute 0.000 0.000 - 0.000 x10(3)/mcL [facility] Blood 06/18/2023 4:19 AM EDT 06/18/2023 4:40 AM EDT Narrative Resulting Agency Comment Spec In Lab Terrence Keating MD HEMATOLOGY ORDERABLE S Performing Organization Address City/[facility]/ZIP Co de Phone Number [facility] [place] [address] * Phosphorus (06/18/2023 4:19 AM EDT) Phosphorus 3.7 2.5 - 4.5 mg/dL [facility] Blood 06/18/2023 4:19 AM EDT 06/18/2023 4:40 AM EDT Narrative Resulting Agency Comment Spec In Lab Eufemia Copeland MD CHEMISTRY ORDERABL ES Performing Organization Address [facility] Co de Phone Number [facility] [place] [address] * Magnesium (06/18/2023 4:19 AM EDT) Magnesium 1.02 0.69 - 1.07 mmol/L [facility] Blood 06/18/2023 4:19 AM EDT 06/18/2023 4:40 AM EDT Narrative Resulting Agency Comment Spec In Lab Eufemia Copeland MD CHEMISTRY ORDERABL ES Performing Organization Address City/[facility]/ZIP Co de Phone Number [facility] [place] [address] * Phosphorus (06/17/2023 2:26 PM EDT) Phosphorus 2.8 2.5 - 4.5 mg/dL [facility] Blood 06/17/2023 2:26 PM EDT 06/17/2023 2:36 PM EDT Narrative Resulting Agency Comment Spec In Lab Eufemia Copeland MD CHEMISTRY ORDERABL ES Performing Organization Address City/[facility]/ZIP Co de Phone Number [facility] [place] [address] * Magnesium (06/17/2023 2:26 PM EDT) Pathologist [facility] Magnesium 1.01 0.69 - 1.07 mmol/L [facility] Blood 06/17/2023 2:26 PM EDT 06/17/2023 2:36 PM EDT Narrative Resulting Agency Comment Spec In Lab Eufemia Copeland MD CHEMISTRY ORDERABL ES Performing Organization Address [facility] Co de Phone Number [facility] [place] [address] * (ABNORMAL) Basic Metabolic Panel (non-fasting) (06/17/2023 2:26 PM EDT) [facility] Glucose 103 65 - 199 mg/dL [facility] Comment:Diabetes: >=200 mg/d L plus symptoms Blood Urea Nitrogen 21(H) 8 - 18 mg/dL [facility] Creatinine 1.07 0.70 - 1.20 mg/dL [facility] Sodium 135 135 - 145 mmol/L [facility] Potassium 3.7 3.5 - 5.0 mmol/L [facility] Comment: Please note: ??Patients with WBC >100,000 may have falsely elevated Potassium levels. ??For accurate Potassium quantification in these patients send serum separator tube (gold top) for subsequent determinations. ??Contact the Clinical Chemistry Laboratory if there are any questions. Chloride 97(L) 98 - 107 mmol/L [facility] Carbon Dioxide 24 22 - 31 mmol/L [facility] Anion Gap 14 5 - 15 mmol/L [facility] Calcium 9.6 8.5 - 10.5 mg/dL [facility] Est Glomerular Filtration Rate 62 >=60 mL/min/1. 73 m?? [facility] [...] Lab Eufemia Copeland MD CHEMISTRY ORDERABL ES [facility] [place] [address] * XR Abdomen Flat & Upright (06/17/2023 [...] education 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 Eufemia Copeland MD IMG DX ORDERABLES * (ABNORMAL) Basic Metabolic Panel (non-fasting) (06/17/2023 5:01 AM EDT) Glucose 100 65 - 199 mg/dL [facility] Comment:Diabetes: >=200 mg/d L plus symptoms Blood Urea Nitrogen 24(H) 8 - 18 mg/dL [facility] Creatinine 1.03 0.70 - 1.20 mg/dL [facility] Sodium 136 135 - 145 mmol/L [facility] Potassium Not Perf 3.5 - 5.0 [facility] Comment: Unable to [...] questions. Chloride 100 98 - 107 mmol/L [facility] Carbon Dioxide 24 22 - 31 mmol/L [facility] Anion Gap 12 5 - 15 mmol/L [facility] Calcium 9.5 8.5 - 10.5 mg/dL [facility] Est Glomerular Filtration Rate 65 >=60 mL/min/1. 73 m?? [facility] [...] In Lab Terrence Keating MD CHEMISTRY ORDERABLES [facility] [place] [address] * Differential, Automated (06/17/2023 1:11 AM EDT) Neutrophil % 54.5 % [facility] Neutrophil Absolute 5.20 1.70 - 6.10 x10(3)/[facility] Lymph % 31.4 % [facility] Lymphocytes Abs 3.0 0.9 - 3.2 x10(3)/[facility] Monocyte % 9.8 % [facility] Monocyte Abs 0.9 0.3 - 0.9 x10(3)/[facility] Eos % 3.4 % [facility] Eosinophils Abs 0.3 0.0 - 0.4 x10(3)/[facility] Basophil % 0.5 % [facility] Baso Absolute 0.0 0.0 - 0.1 x10(3)/[facility] Immature Gran % 0.40 % [facility] Comment: Immature granulocytes(IG's)percentage and absolute count will include metamyelocytes, myelocytes, and promyelocytes. Blood smears from CBCs yielding IG's will be scanned manually for concordance. If this scan disagrees with the automated IG or if promyelocytes are noted, a manual differential will be performed. Immature Gran Absolute 0.04 0.00 - 0.04 x10(3)/[facility] Blood 06/17/2023 1:11 AM EDT 06/17/2023 1:16 AM EDT Narrative Resulting Agency Comment Spec In Lab Terrence Keating MD HEMATOLOGY ORDERABLE S [facility] [place] [address] * Hemogram (06/17/2023 1:11 AM EDT) White Blood Cell 9.5 4.0 - 9.5 x10(3)/[facility] Red Blood Cell 4.60 4.00 - 5.21 x10(6)/[facility] Hemoglobin 14.2 11.7 - 15.5 g/dL [facility] Hematocrit 43.0 35.7 - 45.8 % [facility] Mean Cell Volume 93.5 82.6 - 94.4 fL [facility] Mean Cell Hemoglobin 30.9 27.1 - 32.0 pg [facility] Mean Cell Hemoglobin Concentration 33.0 31.7 - 35.0 g/dL [facility] Platelet 256 145 - 357 x10(3)/[facility] RDW Standard Deviation 45.0 37.0 - 46.0 [facility] RDW coefficient of variation 13.2 11.5 - 14.1 % [facility] Mean Platelet Volume 10.9 7.6 - 12.9 fL [facility] NRBC% auto 0.0 % [facility] NRBC Absolute 0.000 0.000 - 0.000 x10(3)/[facility] Blood 06/17/2023 1:11 AM EDT 06/17/2023 1:16 AM EDT Narrative Resulting Agency Comment Spec In Lab Terrence Keating MD HEMATOLOGY ORDERABLE S Performing Organization Address [facility]/ZIP Co de Phone Number [facility] [place] [address] * Magnesium (06/17/2023 1:11 AM EDT) Magnesium 0.96 0.69 - 1.07 mmol/L [facility] Blood 06/17/2023 1:11 AM EDT 06/17/2023 1:16 AM EDT Narrative Resulting Agency Comment Spec In Lab Eufemia Copeland MD CHEMISTRY ORDERABL ES Performing Organization Address [facility]/ZIP Co de Phone Number [facility] [place] [address] * (ABNORMAL) Basic Metabolic Panel (non-fasting) (06/17/2023 1:11 AM EDT) Glucose 102 65 - 199 mg/dL [facility] [facility] Comment:Diabetes: >=200 mg/d L plus symptoms Blood Urea Nitrogen 24(H) 8 - 18 mg/dL [facility] Creatinine 1.08 0.70 - 1.20 mg/dL [facility] Sodium 137 135 - 145 mmol/L [facility] Potassium 4.1 3.5 - 5.0 mmol/L [facility] Comment: Please note: ??Patients with WBC >100,000 may have falsely elevated Potassium levels. ??For accurate Potassium quantification in these patients send serum separator tube (gold top) for subsequent determinations. ??Contact the Clinical Chemistry Laboratory if there are any questions. Chloride 100 98 - 107 mmol/L [facility] Carbon Dioxide 24 22 - 31 mmol/L [facility] Anion Gap 13 5 - 15 mmol/L [facility] Calcium 9.2 8.5 - 10.5 mg/dL [facility] Est Glomerular Filtration Rate 61 >=60 mL/min/1. 73 m?? [facility] In Lab Terrence Keating MD CHEMISTRY ORDERABLES [facility] [place] [address] * (ABNORMAL) Basic Metabolic Panel (non-fasting) (06/16/2023 8:28 PM EDT) Glucose 111 65 - 199 mg/dL [facility] Comment:Diabetes: >=200 mg/d L plus symptoms Blood Urea Nitrogen 23(H) 8 - 18 mg/dL [facility] Creatinine 1.21(H) 0.70 - 1.20 mg/dL [facility] questions. Chloride 99 98 - 107 mmol/L [facility] Carbon Dioxide 26 22 - 31 mmol/L [facility] Anion Gap 12 5 - 15 mmol/L [facility] Calcium 9.3 8.5 - 10.5 mg/dL [facility] Est Glomerular Filtration Rate 53(L) >=60 mL/min/1. 73 m?? [facility] [...] Lab Eufemia Copeland MD CHEMISTRY ORDERABL ES [facility] [place] [address] * (ABNORMAL) Basic Metabolic Panel (non-fasting) (06/16/2023 2:29 PM EDT) Glucose 175 65 - 199 mg/dL [facility] Comment:Diabetes: >=200 mg/d L plus symptoms Blood Urea Nitrogen 25(H) 8 - 18 mg/dL [facility] Creatinine 1.27(H) 0.70 - 1.20 mg/dL [facility] Sodium 135 135 - 145 mmol/L [facility] Potassium 3.9 3.5 - 5.0 mmol/L [facility] Comment: result rechecked-EL Please note: ??Patients with WBC >100,000 may have falsely elevated Potassium levels. ??For accurate Potassium quantification in these patients send serum separator tube (gold top) for subsequent determinations. ??Contact the Clinical Chemistry Laboratory if there are any questions. Chloride 96(L) 98 - 107 mmol/L [facility] Carbon Dioxide 26 22 - 31 mmol/L [facility] Anion Gap 13 5 - 15 mmol/L [facility] Calcium 9.3 8.5 - 10.5 mg/dL [facility] Est Glomerular Filtration Rate 50(L) >=60 mL/min/1. 73 m?? [facility] Lab Eufemia Copeland MD CHEMISTRY ORDERABL ES [facility] [place] [address] * (ABNORMAL) Basic Metabolic Panel (non-fasting) (06/16/2023 9:01 AM EDT) Glucose 148 65 - 199 mg/dL [facility] Comment:Diabetes: >=200 mg/d L plus symptoms Blood Urea Nitrogen 27(H) 8 - 18 mg/dL [facility] Creatinine 1.27(H) 0.70 - 1.20 mg/dL [facility] Sodium 136 135 - 145 mmol/L [facility] Potassium 2.9(Criti edy) 3.5 - 5.0 mmol/L [facility] Comment: called by tmp /read back by (Malia Mcintyre)/ 06/16/23 @556 Please note: ??Patients with WBC >100,000 may have falsely elevated Potassium levels. ??For accurate Potassium quantification in these patients send serum separator tube (gold top) for subsequent determinations. ??Contact the Clinical Chemistry Laboratory if there are any questions. Chloride 91(L) 98 - 107 mmol/L [facility] Carbon Dioxide 32(H) 22 - 31 mmol/L [facility] Anion Gap 13 5 - 15 mmol/L [facility] Calcium 9.7 8.5 - 10.5 mg/dL [facility] Est Glomerular Filtration Rate 50(L) >=60 mL/min/1. 73 m?? [facility] [...] Eufemia Copeland MD CHEMISTRY [place] [address] * (ABNORMAL) Magnesium (06/16/2023 3:30 AM EDT) [facility] Magnesium 1.09(H) 0.69 - 1.07 mmol/L [facility] Blood Venous Draw / Unknown 06/16/2023 3:30 AM EDT 06/16/2023 3:38 AM EDT Narrative Resulting Agency Comment Spec In Lab Eufemia Copeland MD [place] [address] * (ABNORMAL) Differential, Automated (06/16/2023 3:30 AM EDT) [facility] Neutrophil % 50.4 % [facility] Neutrophil Absolute 4.15 1.70 - 6.10 x10(3)/mc L [facility] Lymph % 33.7 % [facility] Lymphocytes Abs 2.8 0.9 - 3.2 x10(3)/mc L [facility] Monocyte % 11.8 % [facility] Monocyte Abs 1.0(H) 0.3 - 0.9 x10(3)/mc L [facility] Eos % 3.3 % [facility] Eosinophils Abs 0.3 0.0 - 0.4 x10(3)/mc L [facility] Basophil % 0.6 % [facility] Baso Absolute 0.0 0.0 - 0.1 x10(3)/mc L [facility] Immature Gran % 0.20 % [facility] Comment: Immature granulocytes(IG's)percentage and absolute count will include metamyelocytes, myelocytes, and promyelocytes. Blood smears from CBCs yielding IG's will be scanned manually for concordance. If this scan disagrees with the automated IG or if promyelocytes are noted, a manual differential will be performed. Immature Gran Absolute 0.02 0.00 - 0.04 x10(3)/mc L [facility] Blood 06/16/2023 3:30 AM EDT 06/16/2023 3:37 AM EDT Narrative Resulting Agency Comment Spec In Lab Terrence Keating MD HEMATOLOGY ORDERABLE S [facility] [place] [address] * Hemogram (06/16/2023 3:30 AM EDT) White Blood Cell 8.2 4.0 - 9.5 x10(3)/[facility] Red Blood Cell 4.69 4.00 - 5.21 x10(6)/[facility] Hemoglobin 14.5 11.7 - 15.5 g/dL [facility] Hematocrit 42.7 35.7 - 45.8 % [facility] Mean Cell Volume 91.0 82.6 - 94.4 fL [facility] Mean Cell Hemoglobin 30.9 27.1 - 32.0 pg [facility] Mean Cell Hemoglobin Concentration 34.0 31.7 - 35.0 g/dL [facility] Platelet 260 145 - 357 x10(3)/[facility] RDW Standard Deviation 43.5 37.0 - 46.0 [facility] RDW coefficient of variation 13.0 11.5 - 14.1 % [facility] Mean Platelet Volume 11.1 7.6 - 12.9 fL [facility] NRBC% auto 0.0 % [facility] NRBC Absolute 0.000 0.000 - 0.000 x10(3)/[facility] Blood 06/16/2023 3:30 AM EDT 06/16/2023 3:37 AM EDT Narrative Resulting Agency Comment Spec In Lab Terrence Keating MD HEMATOLOGY ORDERABLE S [facility] [place] [address] * (ABNORMAL) Basic Metabolic Panel (non-fasting) (06/16/2023 3:30 AM EDT) Glucose 110 65 - 199 mg/dL [facility] Comment:Diabetes: >=200 mg/d L plus symptoms Blood Urea Nitrogen 28(H) 8 - 18 mg/dL [facility] Creatinine 1.20 0.70 - 1.20 mg/dL [facility] Sodium 135 135 - 145 mmol/L [facility] Potassium 2.7(Criti edy) 3.5 - 5.0 mmol/L [facility] Comment: called by [place] /read back by Jolly Friedman / 06/16/23 2225 Please note: ??Patients with WBC >100,000 may have falsely elevated Potassium levels. ??For accurate Potassium quantification in these patients send serum separator tube (gold top) for subsequent determinations. ??Contact the Clinical Chemistry Laboratory if there are any questions. Chloride 90(L) 98 - 107 mmol/L [facility] Carbon Dioxide 33(H) 22 - 31 mmol/L [facility] Anion Gap 12 5 - 15 mmol/L [facility] Calcium 9.2 8.5 - 10.5 mg/dL [facility] Est Glomerular Filtration Rate 54(L) >=60 mL/min/1. 73 m?? [facility] ORDERABL ES Performing Organization Address [facility] Co de Phone Number [facility] [place] [address] * Heparin (unfractionated) Level (06/16/2023 3:30 AM EDT) UF Heparin 0.64 IU/mL [facility] Comment: [...] ORDERABLE S Performing Organization Address [facility] Co de Phone Number [facility] [place] [address] * Lipid Panel (Reflex Direct LDL) (06/16/2023 3:30 AM EDT) Cholesterol, Total 190 mg/dL [facility] Comment: Desirable: ? <200 mg/dL Borderline High: 200-239 mg/dL Higher: ?>qz=306 mg/dL Triglyceride 126 mg/dL [facility] Comment: Normal: ?<150 mg/dL Borderline High: 150-199 mg/dL High: ?200-499 mg/dL Very High: ? >xm=848 mg/dL HDL Cholesterol 50 mg/dL [facility] Comment: Females: High Risk: <50 mg/dL Males: High Risk: <40 mg/dL LDL Cholesterol 115 mg/dL [facility] Comment: Desirable: ? <100 mg/dL Above Desirable: 100-129 mg/dL Borderline High: 130-159 mg/dL High: ?160-189 mg/dL Very High: ? >ab=541 mg/dL Lipid Interpretation See Note [facility] Comment: It is [...] ACC/AHA Guidelines (most recently Ysabel et al. [facility] 12/09/21): For individuals with atherosclerotic cardiovascular disease (ASCVD)or LDL >ol=416 mg/dL, use a high-intensity statin (40-80 mg [...] In Lab Terrence Keating MD CHEMISTRY ORDERABLES [facility] [place] [address] * (ABNORMAL) Basic Metabolic Panel (non-fasting) (06/15/2023 9:33 PM EDT) Glucose 120 65 - 199 mg/dL [facility] Comment:Diabetes: >=200 mg/d L plus symptoms Blood Urea Nitrogen 29(H) 8 - 18 mg/dL [facility] Creatinine 1.38(H) 0.70 - 1.20 mg/dL [facility] Sodium 135 135 - 145 mmol/L [facility] Potassium 3.1(L) 3.5 - 5.0 mmol/L [facility] Comment: Please note: ??Patients with WBC >100,000 may have falsely elevated Potassium levels. ??For accurate Potassium quantification in these patients send serum separator tube (gold top) for subsequent determinations. ??Contact the Clinical Chemistry Laboratory if there are any questions. Chloride 92(L) 98 - 107 mmol/L [facility] Carbon Dioxide 31 22 - 31 mmol/L [facility] Anion Gap 12 5 - 15 mmol/L [facility] Calcium 9.4 8.5 - 10.5 mg/dL [facility] Est Glomerular Filtration Rate 45(L) >=60 mL/min/1. 73 m?? [facility] [...] Lab Eufemia Copeland MD CHEMISTRY ORDERABL ES [facility] [place] [address] * Heparin (unfractionated) Level (06/15/2023 9:33 PM EDT) UF Heparin 0.63 IU/mL [facility] Comment: [...] [facility] [place]/ZIP Co de Phone Number [facility] [place] [address] * (ABNORMAL) Magnesium (06/15/2023 5:47 PM EDT) [facility] Magnesium 1.10(H) 0.69 - 1.07 mmol/L [facility] Blood Venous Draw / Unknown 06/15/2023 5:47 PM EDT 06/15/2023 6:10 PM EDT Narrative Resulting Agency Comment Spec In Lab Terrence Keating MD CHEMISTRY ORDERABLES Performing Organization Address [facility] Co de Phone Number [facility] [place] [address] * (ABNORMAL) Basic Metabolic Panel (non-fasting) (06/15/2023 5:47 PM EDT) [facility] Glucose 147 65 - 199 mg/dL [facility] Comment:Diabetes: >=200 mg/d L plus symptoms Blood Urea Nitrogen 29(H) 8 - 18 mg/dL [facility] Creatinine 1.20 0.70 - 1.20 mg/dL [facility] Sodium 134(L) 135 - 145 mmol/L [facility] Potassium 2.9(Criti edy) [...] questions. Chloride 89(L) 98 - 107 mmol/L [facility] Carbon Dioxide 29 22 - 31 mmol/L [facility] Anion Gap 16(H) 5 - 15 mmol/L [facility] Calcium 9.1 8.5 - 10.5 mg/dL [facility] Est Glomerular Filtration Rate 54(L) >=60 mL/min/1. 73 m?? [facility] [...] Lab Eufemia Copeland MD CHEMISTRY ORDERABL ES [facility] [place] [address] * Rapid Drug Screen w/o Confirmation, Urine (06/15/2023 4:46 PM EDT) Barbiturates Screen, Urine None Detected None Detected [facility] Comment: The barbiturate [...] Benzodiazepines Screen, Urine None Detected None Detected [facility] Comment: The benzodiazepines [...] Cocaine Screen, Urine None Detected None Detected [facility] Comment: The cocaine [...] Metabolites Screen, Urine None Detected None Detected [facility] Comment: The methadone [...] Opiate Screen, Urine None Detected None Detected [facility] Comment: The opiates [...] Cannabinoid Screen, Urine None Detected None Detected [facility] Comment: The marijuana metabolites screen detects the THC metabolite (28-tgb-3-carboxy-delta 9-THC) at concentrations >20 ng/mL. A ? Presumptive Positive? result indicates that the screening result was positive but has not yet been confirmed by a highly-specific method. As with any screen, occasional false positive results from cross-reacting substances may occur. Not for Medico-Legal Purposes. Oxycodone Screen, Urine None Detected None Detected [facility] Comment: The oxycodone screen detects oxycodone and oxymorphone at concentrations >100 ng/mL. A ? Presumptive Positive? result indicates that the screening result was positive but has not yet been confirmed by a highly-specific method. As with any screen, occasional false positive results from cross-reacting substances may occur. Not for Medico-Legal Purposes. Buprenorphine Screen, Urine None Detected None Detected [facility] Comment: The buprenorphine [...] this test were determined by [facility] in accordance with CLIA requirements. This laboratory is qualified under CLIA to perform high-complexity testing. Fentanyl Screen, Urine None Detected None Detected [facility] Comment: The fentanyl [...] this test were determined by [facility] in accordance with CLIA requirements. This laboratory is qualified under CLIA to perform high-complexity testing. Tricyclics Screen, Urine None Detected None Detected [facility] Comment: The tricyclics [...] this test were determined by [facility] in accordance with CLIA requirements. This laboratory is qualified under CLIA to perform high-complexity testing. Ethanol Screen, Urine None Detected None Detected [facility] Comment:This urine ethanol a ssay detects ethanol at concentrations >/= 100 mg/L. Amphetamines Screen, Urine None Detected None Detected [facility] Comment: The amphetamine screen detects d-amphetamine and d-methamphetamine at concentrations >300 ng/mL. A ? Presumptive Positive? result indicates that the screening result was positive but has not yet been confirmed by a highly-specific method. As with any screen, occasional false positive results from cross-reacting substances may occur. Not for Medico-Legal Purposes. Creatinine Specimen Validity Test, Urine 39 >=20 mg/dL [facility] Chromate Specimen Validity Test, Urine <2.0 <=49.9 mg/L [facility] Nitrite Specimen Validity Test, Urine <50 <=499 mg/L [facility] Oxidant Specimen Validity Test, Urine 12 <=199 mg/L [facility] pH Specimen Validity Test, Urine 5.4 3.0 - 10.9 [facility] Adulterants Screen, Urine None Detected None Detected [facility] Comment:No adulteration of t his urine sample was detected. Urine 06/15/2023 4:46 PM EDT 06/15/2023 5:30 PM EDT Narrative Resulting Agency Comment Spec In Lab Eufemia Copeland MD CHEMISTRY ORDERABL ES Performing Organization Address City/[facility]/ZIP Co de Phone Number [facility] [place] [address] * Rapid Drug Screen, Urine (TEE Request) (06/15/2023 4:46 PM EDT) TEE Conf Requested No [facility] TEE Requested See Comment [facility] Comment:Refer to Rapid Drug Screen w/o Confirmation, Urine for results. Urine 06/15/2023 4:46 PM EDT 06/15/2023 5:30 PM EDT Narrative Resulting Agency Comment Spec In Lab Eufemia Copeland MD URINE ORDERABLES Performing Organization Address City/[facility]/ZIP Co de Phone Number [facility] [place] [address] * (ABNORMAL) Basic Metabolic Panel (non-fasting) (06/15/2023 2:29 PM EDT) Glucose 141 65 - 199 mg/dL [facility] Comment:Diabetes: >=200 mg/d L plus symptoms Blood Urea Nitrogen 31(H) 8 - 18 mg/dL [facility] Creatinine 1.21(H) 0.70 - 1.20 mg/dL [facility] Sodium 132(L) 135 - 145 mmol/L [facility] Potassium 3.0(Criti edy) 3.5 - 5.0 mmol/L [facility] [...] questions. Chloride 89(L) 98 - 107 mmol/L [facility] Carbon Dioxide 32(H) 22 - 31 mmol/L [facility] Anion Gap 11 5 - 15 mmol/L [facility] Calcium 9.6 8.5 - 10.5 mg/dL [facility] Est Glomerular Filtration Rate 53(L) >=60 mL/min/1. 73 m?? [facility] ORDERABL ES Performing Organization Address [facility] Co de Phone Number [facility] [place] [address] * Heparin (unfractionated) Level (06/15/2023 2:29 PM EDT) Pathologist [facility] UF Heparin 0.93 IU/mL [facility] Comment: [...] ORDERABLE S Performing Organization Address [facility] Co de Phone Number [facility] [place] [address] * EKG 12 Lead (06/15/2023 10:50 AM EDT) [facility] Ventricular rate 55 BPM MUSE SYSTEM Atrial Rate 55 BPM MUSE SYSTEM P-R Interval 184 ms MUSE SYSTEM QRS Duration 96 ms MUSE SYSTEM Q-T Interval 590 ms MUSE SYSTEM QTC Calculated (Bezet) 565 ms MUSE SYSTEM Calculated P Pinon 54 degrees MUSE SYSTEM Calculated R Pinon 54 degrees MUSE SYSTEM Calculated T Pinon 13 degrees MUSE SYSTEM INTERPRETATION Sinus bradycardia with sinus arrhythmia Marked ST abnormality, possible inferior subendocardial injury Long QT interval Abnormal ECG When compared with ECG of 15-JUN-2023 02:17, Nonspecific T wave abnormality has replaced inverted T waves in Lateral leads Confirmed by Kai Haider ([id number]) on 06/16/2023 3:52:04 PM MUSE SYSTEM 06/15/2023 10:5 0 AM EDT 06/16/2023 3:52 PM EDT Terrence Keating MD ECG ORDERABLES MUSE SYSTEM * (ABNORMAL) Basic Metabolic Panel (non-fasting) (06/15/2023 8:18 AM EDT) Glucose 113 65 - 199 mg/dL [facility] Comment:Diabetes: >=200 mg/d L plus symptoms Blood Urea Nitrogen 29(H) 8 - 18 mg/dL [facility] Creatinine 1.22(H) 0.70 - 1.20 mg/dL [facility] Sodium 134(L) 135 - 145 mmol/L [facility] Potassium 2.5(Criti edy) 3.5 - 5.0 mmol/L [facility] [...] questions. Chloride 89(L) 98 - 107 mmol/L [facility] Carbon Dioxide 30 22 - 31 mmol/L [facility] Anion Gap 15 5 - 15 mmol/L [facility] Calcium 10.0 8.5 - 10.5 mg/dL [facility] Est Glomerular Filtration Rate 53(L) >=60 mL/min/1. 73 m?? [facility] [...] ORDERABL ES Performing Organization Address [facility]/ZIP Co de Phone Number [facility] [place] [address] * Heparin (unfractionated) Level (06/15/2023 8:18 AM EDT) UF Heparin 0.70 IU/mL [facility] Comment: [...] ORDERABLE S Performing Organization Address [facility]/ZIP Co de Phone Number [facility] [place] [address] * (ABNORMAL) Troponin (06/15/2023 8:18 AM EDT) Troponin-T, High Sensitivity 33(H) <=14 ng/L [facility] [...] can be found in the [facility] Test Catalog Troponin - [facility] Test Catalog Reference: Fourth [place] Definition of Myocardial Infarction. Journal of the [employer] [employer] 2018;72:5551-4440 Blood 06/15/2023 8:18 AM EDT 06/15/2023 8:34 AM EDT Narrative Resulting Agency Comment Spec In Lab Terrence Keating MD CHEMISTRY ORDERABLES [facility] [place] [address] * Differential, Automated (06/15/2023 4:28 AM EDT) Neutrophil % 48.0 % [facility] Neutrophil Absolute 3.20 1.70 - 6.10 x10(3)/[facility] Lymph % 35.8 % [facility] Lymphocytes Abs 2.4 0.9 - 3.2 x10(3)/[facility] Monocyte % 11.4 % [facility] Monocyte Abs 0.8 0.3 - 0.9 x10(3)/[facility] Eos % 3.7 % [facility] Eosinophils Abs 0.2 0.0 - 0.4 x10(3)/[facility] Basophil % 1.0 % [facility] Baso Absolute 0.1 0.0 - 0.1 x10(3)/[facility] Immature Gran % 0.10 % [facility] Comment: Immature granulocytes(IG's)percentage and absolute count will include metamyelocytes, myelocytes, and promyelocytes. Blood smears from CBCs yielding IG's will be scanned manually for concordance. If this scan disagrees with the automated IG or if promyelocytes are noted, a manual differential will be performed. Immature Gran Absolute 0.01 0.00 - 0.04 x10(3)/[facility] Blood 06/15/2023 4:28 AM EDT 06/15/2023 4:37 AM EDT Narrative Resulting Agency Comment Spec In Lab Terrence Keating MD HEMATOLOGY ORDERABLE S [facility] [place] [address] * (ABNORMAL) Hemogram (06/15/2023 4:28 AM EDT) White Blood Cell 6.7 4.0 - 9.5 x10(3)/ L [facility] Red Blood Cell 5.09 4.00 - 5.21 x10(6)/ L [facility] Hemoglobin 16.1(H) 11.7 - 15.5 g/dL [facility] Hematocrit 48.2(H) 35.7 - 45.8 % [facility] Mean Cell Volume 94.7(H) 82.6 - 94.4 fL [facility] Mean Cell Hemoglobin 31.6 27.1 - 32.0 pg [facility] Mean Cell Hemoglobin Concentration 33.4 31.7 - 35.0 g/dL [facility] Platelet 253 145 - 357 x10(3)/ L [facility] RDW Standard Deviation 45.5 37.0 - 46.0 fL [facility] RDW coefficient of variation 13.0 11.5 - 14.1 % [facility] Mean Platelet Volume 10.6 7.6 - 12.9 fL [facility] NRBC% auto 0.0 % [facility] NRBC Absolute 0.000 0.000 - 0.000 x10(3)/mc L [facility] Blood 06/15/2023 4:28 AM EDT 06/15/2023 4:37 AM EDT Narrative Resulting Agency Comment Spec In Lab Terrence Keating MD HEMATOLOGY ORDERABLE S [facility] [place] [address] * (ABNORMAL) Troponin (06/15/2023 4:28 AM EDT) Troponin-T, High Sensitivity 34(H) <=14 ng/L [facility] [...] can be found in the [facility] Test Catalog Troponin - [facility] Test Catalog Reference: Fourth [place] Definition of Myocardial Infarction. Journal of the [employer] [employer] 2018;72:2527-0272 Blood 06/15/2023 4:28 AM EDT 06/15/2023 4:37 AM EDT Narrative Resulting Agency Comment Spec In Lab Terrence Keating MD CHEMISTRY ORDERABLES Performing Organization Address City/[facility]/ZIP Co de Phone Number [facility] [place] [address] * (ABNORMAL) Prothrombin Time (06/15/2023 4:28 AM EDT) Prothrombin Time 12.7(H) 9.4 - 12.5 sec [facility] International Normalization Ratio 1.1 [facility] Comment: An INR [...] [facility] [place]/ZIP Co de Phone Number [facility] [place] [address] * (ABNORMAL) Hepatic Function Panel (06/15/2023 4:28 AM EDT) Protein, Total 7.5 6.1 - 8.0 g/dL [facility] Albumin 4.3 3.2 - 5.2 g/dL [facility] Aspartate Aminotransferase 32(H) 0 - 30 unit/L [facility] Alanine Aminotransferase 26 0 - 30 unit/L [facility] Alkaline Phosphatase 70 35 - 105 unit/L [facility] Bilirubin, Total 0.8 0.2 - 1.3 mg/dL [facility] Bilirubin, Direct 0.1 0.0 - 0.3 mg/dL [facility] Blood 06/15/2023 4:28 AM EDT 06/15/2023 4:37 AM EDT Narrative Resulting Agency Comment Spec In Lab Terrence Keating MD CHEMISTRY ORDERABLES Performing Organization Address City/[facility]/ZIP Co de Phone Number [facility] [place] [place] [address] * (ABNORMAL) pro-Brain Natriuretic Peptide (06/15/2023 4:28 AM EDT) NT-proBNP 1,953(H) <=124 pg/mL [facility] Blood 06/15/2023 4:28 AM EDT 06/15/2023 4:37 AM EDT Narrative Resulting Agency Comment Spec In Lab Terrence Keating MD CHEMISTRY ORDERABLES Performing Organization Address City/[facility]/ZIP Co de Phone Number [facility] [place] [address] * TSH (06/15/2023 4:28 AM EDT) Thyroid Stimulating Hormone 2.98 0.27 - 4.20 mcIU/mL [facility] Comment: Reference Interval (mcIU/mL): Females: ??First Trimester: 0.23-3.88 ??Second Trimester: 0.22-3.90 ??Third Trimester: 0.44-4.66 Blood 06/15/2023 4:28 AM EDT 06/15/2023 4:37 AM EDT Narrative Resulting Agency Comment Spec In Lab Terrence Keating MD CHEMISTRY ORDERABLES Performing Organization Address City/[facility]/ZIP Co de Phone Number [facility] [place] [address] * Phosphorus (06/15/2023 4:28 AM EDT) Phosphorus 4.4 2.5 - 4.5 mg/dL [facility] Blood 06/15/2023 4:28 AM EDT 06/15/2023 4:37 AM EDT Narrative Resulting Agency Comment Spec In Lab Terrence Keating MD CHEMISTRY ORDERABLES Performing Organization Address City/[facility]/ZIP Co de Phone Number [facility] [place] [address] * (ABNORMAL) Magnesium (06/15/2023 4:28 AM EDT) Magnesium 1.22(H) 0.69 - 1.07 mmol/L [facility] Blood 06/15/2023 4:28 AM EDT 06/15/2023 4:37 AM EDT Narrative Resulting Agency Comment Spec In Lab Terrence Keating MD CHEMISTRY ORDERABLES Performing Organization Address City/[facility]/ZIP Co de Phone Number [facility] [place] [address] * Calcium (06/15/2023 4:28 AM EDT) Calcium 9.7 8.5 - 10.5 mg/dL [facility] Blood 06/15/2023 4:28 AM EDT 06/15/2023 4:37 AM EDT Narrative Resulting Agency Comment Spec In Lab Terrence Keating MD CHEMISTRY ORDERABLES Performing Organization Address City/[facility] Co de Phone Number [facility] [place] [address] * (ABNORMAL) Basic Metabolic Panel (non-fasting) (06/15/2023 4:28 AM EDT) Glucose 112 65 - 199 mg/dL [facility] Comment:Diabetes: >=200 mg/d L plus symptoms Blood Urea Nitrogen 30(H) 8 - 18 mg/dL [facility] Creatinine 1.24(H) 0.70 - 1.20 mg/dL [facility] Sodium 134(L) 135 - 145 mmol/L [facility] Potassium 2.7(Criti edy) 3.5 - 5.0 mmol/L [facility] [...] questions. Chloride 90(L) 98 - 107 mmol/L [facility] Carbon Dioxide 28 22 - 31 mmol/L [facility] Anion Gap 16(H) 5 - 15 mmol/L [facility] Calcium 9.7 8.5 - 10.5 mg/dL [facility] Est Glomerular Filtration Rate 52(L) >=60 mL/min/1. 73 m?? [facility] [...] In Lab Terrence Keating MD CHEMISTRY ORDERABLES [facility] [place] [address] * EKG 12 Lead (06/15/2023 2:17 AM EDT) Ventricular rate 57 BPM MUSE SYSTEM Atrial Rate 57 BPM MUSE SYSTEM P-R Interval 200 ms MUSE SYSTEM QRS Duration 94 ms MUSE SYSTEM Q-T Interval 606 ms MUSE SYSTEM QTC Calculated (Bezet) 591 ms MUSE SYSTEM Calculated P Pinon 66 degrees MUSE SYSTEM Calculated R Pinon 74 degrees MUSE SYSTEM Calculated T Pinon -33 degrees MUSE SYSTEM INTERPRETATION Sinus bradycardia Possible Lateral infarct (cited on or before 17-APR-2023) Marked ST abnormality, possible inferior subendocardial injury Prolonged QTc Abnormal ECG When compared with ECG of 20-APR-2023 10:23, Nonspecific T wave changes QT has lengthened Confirmed by fellow MD Hansa, Sindhu ([id number]) on 06/15/2023 4:36:19 PM Confirmed by MD Petey, Kia ([id number]) on 06/15/2023 4:51:21 PM MUSE SYSTEM 06/15/2023 [...] 0854 (Given - Provider: Heidy Paris RN)1332 ([facility] Hold - Provider: Admin Adt - Reason: Transfer to a Procedural area)1548 ([facility] Unhold - Provider: Admin Adt) 0856 [...] Wed06/15/23 at 1700, Until Discontinued, Routine 1332 ([facility] Hold - Provider: Admin Adt - Reason: Transfer to a Procedural area)1548 ([facility] Unhold - Provider: Admin Adt)1656 (Given - Provider: Heidy Paris RN) 1708 (Given - Provider: Heidy Paris RN) clopidogreL (Plavix) tablet 75 mg (CANCELED) 75 mg, Oral, DAILY, First dose on Wed07/03/23 at 0900, Until Discontinued, Routine 0854 (Given - Provider: Heidy Paris RN)1332 ([facility] Hold - Provider: Admin Adt - Reason: Transfer to a Procedural area)1548 ([facility] Unhold - Provider: Admin Adt) 0855 (Given - Provider: Heidy Paris RN) 0930 (Given - Provider: Heidy Paris RN) DULoxetine DR (Cymbalta) capsule 60 mg 60 mg, Oral, DAILY, First dose on Wed06/15/23 at 0900, Until Discontinued, Routine 0853 (Given - Provider: Heidy Paris RN)1332 ([facility] Hold - Provider: Admin Adt - Reason: Transfer to a Procedural area)1548 ([facility] Unhold - Provider: Admin Adt) 0856 (Given - Provider: Heidy Paris RN) 0931 (Given - Provider: Heidy Paris RN) gabapentin (Neurontin) capsule 600 mg 600 mg, Oral, NIGHTLY, First dose on Wed06/15/23 at 0200, Until Discontinued, Routine 1332 ([facility] Hold - Provider: Admin Adt - Reason: Transfer to a Procedural area)1548 ([facility] Unhold - Provider: Admin Adt)2136 (Given [...] Heidy Paris RN - Reason: Patient/family refused)1332 ([facility] Hold - Provider: Admin Adt - Reason: Transfer to a Procedural area)1548 ([facility] Unhold - Provider: Admin Adt) 1000 (Not Given - Provider: Heidy Paris RN - Reason: Patient/family refused) 1000 (Not Given - Provider: Heidy Paris RN - Reason: Patient/family refused) melatonin tablet 6 mg 6 mg, Oral, NIGHTLY, First dose on Wed06/15/23 at 0200, Until Discontinued 1332 ([facility] Hold - Provider: Admin Adt - Reason: Transfer to a Procedural area)1548 ([facility] Unhold - Provider: Admin Adt)2136 (Given - Provider: Lorena Torres, ERWIN) 2116 (Given - Provider: Machelle Busch, ERWIN) metoprolol succinate XL (Toprol-XL) tablet 12.5 mg 12.5 mg, Oral, DAILY, First dose on Wed06/21/23 at 0900, Until Discontinued, DO NOT CRUSH OR OPEN Hold for HR <55 and Sbp <90, Routine 0854 (Given - Provider: Heidy Paris RN)1332 ([facility] Hold - Provider: Admin Adt - Reason: Transfer to a Procedural area)1548 ([facility] Unhold - Provider: Admin Adt) 0900 (Not Given - Provider: Heidy Paris RN - Reason: Order parameters not met) 0930 (Given - Provider: Heidy Paris RN) pantoprazole EC (Protonix) tablet 40 mg 40 mg, Oral, DAILY, First dose on Wed06/15/23 at 0900, Until Discontinued 0854 (Given - Provider: Heidy Paris RN)1332 ([facility] Hold - Provider: Admin Adt - Reason: Transfer to a Procedural area)1548 ([facility] Unhold - Provider: Admin Adt) 0856 [...] Heidy Paris RN - Reason: Patient/family refused)1332 ([facility] Hold - Provider: Admin Adt - Reason: Transfer to a Procedural area)1548 ([facility] Unhold - Provider: Admin Adt) 0900 [...] 0853 (Given - Provider: Heidy Paris RN)1332 ([facility] Hold - Provider: Admin Adt - Reason: Transfer to a Procedural area)1548 ([facility] Unhold - Provider: Admin Adt)2135 (Given [...] Heidy Paris RN - Reason: Patient/family refused)1332 ([facility] Hold - Provider: Admin Adt - Reason: Transfer to a Procedural area)1548 ([facility] Unhold - Provider: Admin Adt) 1000 (Not Given - Provider: Heidy Paris RN - Reason: Patient/family refused) rOPINIRole (Requip) tablet 2 mg 2 mg, Oral, 2 TIMES DAILY, First dose on Wed06/15/23 at 0245, Until Discontinued, Routine 0853 (Given - Provider: Heidy Paris RN)1332 ([facility] Hold - Provider: Admin Adt - Reason: Transfer to a Procedural area)1548 ([facility] Unhold - Provider: Admin Adt)2136 (Given [...] Heidy Paris RN - Reason: Patient/family refused)1332 ([facility] Hold - Provider: Admin Adt [...] 0859 (Given - Provider: Heidy Paris RN)1332 ([facility] Hold - Provider: Admin Adt - Reason: Transfer to a Procedural area)1548 ([facility] Unhold - Provider: Admin Adt)2099 (Not [...] 0853 (Given - Provider: Heidy Paris RN)1332 ([facility] Hold - Provider: Admin Adt - Reason: Transfer to a Procedural area)1548 ([facility] Unhold - Provider: Admin Adt) 0856 (Given - Provider: Heidy Paris RN) 0931 (Given - Provider: Heidy Paris RN) topiramate (Topamax) tablet 100 mg 100 mg, Oral, NIGHTLY, First dose on Wed06/15/23 at 2100, Until Discontinued, Routine 1332 ([facility] Hold - Provider: Admin Adt - Reason: Transfer to a Procedural area)1548 ([facility] Unhold - Provider: Admin Adt)2137 (Given [...] RN)1300 (Stopped - Provider: Heidy Paris, ERWIN)1332 ([facility] Hold - Provider: Admin Adt - Reason: Transfer to a Procedural area)1548 ([facility] Unhold - Provider: Admin Adt)1815 (Restarted - [...] ordered pain medications are indicated., Routine 1332 ([facility] Hold - Provider: Admin Adt - Reason: Transfer to a Procedural area)1548 ([facility] Unhold - Provider: Admin Adt) albuteroL (Proventil, Ventolin) (2.5 mg/3 mL) (0.083 %) nebulizer solution 2.5 mg 2.5 mg, Nebulization, EVERY 4 HOURS PRN, Starting on Wed07/04/23 at 0857, Until Wed07/09/23 at 1844, Wheezing, Routine 1332 ([facility] Hold - Provider: Admin Adt - Reason: Transfer to a Procedural area)1548 ([facility] Unhold - Provider: Admin Adt) lidocaine (Xylocaine) 1% (10 mg/mL) injection 3 mg 3 mg (0.3 mL), Subcutaneous, ONCE PRN, 1 dose, Starting on Wed06/15/23 at 0146, Until Wed07/09/23 at 1844, for discomfort with PIV insertion, Routine 1332 ([facility] Hold - Provider: Admin Adt - Reason: Transfer to a Procedural area)1548 ([facility] Unhold - Provider: Admin Adt) loratadine (Claritin) tablet 10 mg 10 mg, Oral, DAILY PRN, Starting on Wed06/15/23 at 0146, Until Wed07/09/23 at 1844, allergies, Routine 1332 ([facility] Hold - Provider: Admin Adt - Reason: Transfer to a Procedural area)1548 ([facility] Unhold - Provider: Admin Adt) nitroGLYcerin (Nitrostat) disintegrating tablet 0.4 mg 0.4 mg, Sublingual, EVERY 5 MIN PRN, Starting on Wed06/22/23 at 1119, Until Wed07/09/23 at 1844, Chest pain, SL nitroglycerin may be repeated every 5 minutes as needed up to 3 doses, Routine 1332 ([facility] Hold - Provider: Admin Adt - Reason: Transfer to a Procedural area)1548 ([facility] Unhold - Provider: Admin Adt) 0951 (Given - Provider: Heidy Paris, ERWIN) ondansetron (pf) (Zofran) (2 mg/mL) injection 4 mg 4 mg, Intravenous, EVERY 8 HOURS PRN, Starting on Wed06/29/23 at 1449, Until Wed07/09/23 at 1844, Nausea 1332 ([facility] Hold - Provider: Admin Adt - Reason: Transfer to a Procedural area)1548 ([facility] Unhold - Provider: Admin Adt)2137 (Given [...] from all sources in 24 hours. 1332 ([facility] Hold - Provider: Admin Adt - Reason: Transfer to a Procedural area)1548 ([facility] Unhold - Provider: Admin Adt)2137 (Given - Provider: Lorena Torres, ERWIN) 0855 (Given - Provider: Heidy Paris, ERWIN)2120 (Given - Provider: Machelle Busch, ERWIN) simethicone (Gas-X Chew) 80 mg chewable tablet 80 mg 80 mg, Oral, EVERY 6 HOURS PRN, Starting on Wed06/20/23 at 0941, Until Wed07/09/23 at 1844, Cramping, Routine 1332 ([facility] Hold - Provider: Admin Adt - Reason: Transfer to a Procedural area)1548 ([facility] Unhold - Provider: Admin Adt) 1344 [...] provided on this medication record., Routine 1332 ([facility] Hold - Provider: Admin Adt - Reason: Transfer to a Procedural area)1548 ([facility] Unhold - Provider: Admin Adt) Linked [...] Routine documented in this encounter Care Teams Wire Taper Relationship Specialty Start Date End Date Polo Pearce PA [address] [place] [address] PCP - General Internal Medicine 06/09/21 documented as of this encounter
--- OUTSIDE RECORDS SUMMARY | 2024-01-24 12:35 | XMS_ITS | Encounter Summary ---
Author Organization Formerly [facility] [address] Care Team Providers Care Light Bulb Assembler Name Role Phone Ploo Pearce Primary Care Provider [phone] Encounter Details Date Type Department Care Team (Late st Contact Info) Description 06/14/2023 External [place] [address] Social History Tobacco Use Types Packs/Day Years Used Date Smoking Tobacco: Never Smokeless Tobacco: Never Alcohol Use Standard Drinks/Week Comments Never 0 (1 standard drink = 0.6 oz pur e alcohol) [facility] Utilities Answer Date Recorded In [...] 1:00 PM EST Office Visit Cardiology at [address] [place] [address] Jaspreet Kinsey MD [facility] [place] [address] documented as of this encounter Procedures Procedure Name Priority Date/Time Associated Diagnosis Comments ECG SCAN Routine 06/14/2023 11:24 AM EDT documented in this encounter Results * Scan Doc: ECG (06/14/2023 11:24 AM EDT) Historical Provider MEDIA MGR SCAN EX T ORDR/RSLT documented in this encounter Visit Diagnoses Not on filedocumented in this encounter Care Teams Light Bulb Assembler Relationship Specialty Start Date End Date Polo Pearce PA [address] [place] [id number] PCP - General Internal Medicine 06/09/21 documented as of this encounter
--- OUTSIDE RECORDS SUMMARY | 2024-01-24 12:35 | XMS_ITS | Encounter Summary ---
[place] [address] Care Team Providers Care Hospital Insurance Clerk Name Role Phone Polo Pearce Primary Care Provider [phone] Reason for Referral * Diagnostic Test (Routine) - Closed Specialty Diagnoses / Procedures Referred By Jayant harris Referred To Contact Radiology Diagnoses Chest pain, unspecified type Procedures NM PET CT Cardiac Sarcoid Maegan Mike APRN [facility] [place] [address] [place] [address] Referral ID Status Reason Start Date Expiration Date V isits Requested Visits Authorized [id number] Closed Specialty Service Requested 04/22/2023 10/20/2024 4 4 Reason for Visit * Auth/Cert (Routine) Specialty Diagnoses / Procedures Referred By Jayant t Referred To Contact Diagnoses NSTEMI (non-ST elevated myocardial infarction) NSTEMI Procedures ER Terrence Pantoja MD [facility] [place] [address] [facility] Referral ID Status Reason Start Date Expiration Date Visits Re quested Visits Authorized [id number] 1 1 Encounter Details Date Type Department Care Team (Latest Contact Info) Description 04/16/2023 11:15 PM EST - 04/22/2023 5:15 PM EST Hospital Encounter Heart and Vascular Unit Level 4 Wing B at [facility] [place] [address] Jose Gallegos MD [facility] [place] [address] Ailyn Knight MD [facility] [place] [address] Terrence Maloney MD [facility] [place] [address] Eufemia Copeland MD [facility] [place] [address] Chest pain, unspecified type; Non-ST elevation myocardial infarction (NSTEMI); Swelling of hand, unspecified laterality; Arm edema Discharge Disposition: Home Social History Tobacco Use Types Packs/Day Years Used Date Smoking Tobacco: Never Smokeless Tobacco: Never Alcohol Use Standard Drinks/Week Comments Never 0 (1 standard drink = 0.6 oz pur e alcohol) [facility] Utilities Answer Date Recorded In the past 12 months has e [employer], gas, oil, or water [employer] threatened to shut off services in your [...] Loida Madrigal Patient Age: 53 y.o. Language: Kazakh Admit date: 04/16/2023 Discharge date and time: [...] lung disease secondary to obesity transferred from [facility] for further evaluation of exertional chest pressure and breathlessness. Abnormal OSH troponin 500 and repeat HS Trop at [facility] peak 27 with flat trend and elevated [...] discharge Inpatient Provider Contact Information: Cardiovascular Medicine [phone] Discharge Diagnoses (Hospital Problems) and Secondary Diagnoses [...] motion has increased. CTA PE protocol at [facility]- no PE but showed small pericardial effusion and some GG opacities. History of Presentation: Loida Madrigal is a 53 y.o. with hx of paroxysmal A-fib (diagnosed on 10/20/2022), pulmonary emboli on Eliquis, HFpEF (EF of 59%), supraventricular tachycardia (AVNRT since 06/2021) s/p EPS and SVTablation on 04/01/[address] Tovar on [facility], restrictive lung disease secondary to [...] consistent with previous recordings. Troponin levels at [facility] showed a plateau at 23 > 27. [...] again 10/15, improving with sublingua Nitro. At [facility] Vitals: HR 48, BP 115/42, O2 [...] #Acute on chronic HFpEF Patient presented to [facility] on 04/16 with chest pain responsive to SL NTG. Troponin ~500x2. Transferredto [facility] for further evaluation. Troponin at [facility], 24>23 w/ repeat peak 27->26. She reported [...] 04/19/2023 PLATELET 240 04/19/2023 Recent Labs 04/17/23 033 INR 1.2 Lab Results Component Value Date [...] PA 38/15 (24) PCWP 11, CO/CI 3.14/1.6. [facility] 08/30/2019-normal coronary arteries. Cardiac MRI [...] days. Refills: 0 fluticasone propionate 50 mcg/actuation Anderson, Suspension Commonly known as: Flonase 1 spray [...] 9:40 AM Jaspreet Kinsey MD Cardiology at [place] [facility] at: [facility] [address] [phone] 09/21/2023 3:00 PM Jaspreet Kinsey MD Cardiology at [place] at: [facility] [address] [phone] Discharge References/Attachments None Greater than 30 minutes was spent on this discharge including documentation, [id number]-[id number] time withthe patient, patient education, order worker, coordination with pharmacy and other patient care. [...] away. Stay on the phone. The emergency fluid jet cutter operator will tell you what to do. [...] of 8AM-5PM please call the Cardiology Clinic [phone] to speak with a nurse. All other hours please call the [facility] [phone] and ask to speak to the clinical radiologist on-call. Return to work: One week Follow up Appointments: Doctor Where Phone # Date Time PCP JOCY Franco [address] [place] [address] 04/28/2023 7:[address] Kinsey [facility] [address] 05/10/2023 9:40 AM * Attachments The following attachments cannot be sent through Care Everywhere. * Coronary Angiogram: Post-op (Kazakh) documented in this encounter Medications at Time [...] by mouth nightly. empagliflozin (Jardiance) 10 mg TabletIndications:Hha neal heart failure with preserved ejection fraction Take 1 tablet by mouth daily. 90 tablet 1 06/11/2021 rOPINIRole (Requip) 1 mg Tablet Take 2 mg by mouth 2 times daily. 07/16/2020 loratadine (Claritin) 10 mg Tablet Take 10 mg by mouth daily as needed. fluticasone propionate (FLONASE) 50 mcg/actuation Anderson, Suspension 1 spray by Each Nare route [...] reviewed with pt, [facility] I agree with [...] note were not included. CARDIOLOGY APP1 - [facility] DAILY PROGRESS NOTE Page [phone] to reach a provider 28/09 Admit Date: [...] normal. Labs: Recent Labs 04/21/23 03404/20/23 03104/19/23 02404/18/2320904/17/23 0333 WBC 7.1 6.6 7.5 6.7 7.4 [...] 12 CRP <=4.9 mg/L <3.0 <3.0 OSH [facility] troponin ~500. Telemetry: I have personally [...] disease secondary to obesity who presented to [facility] on 04/16 with chest pain responsive to SL NTG. Troponin ~500x2. Transferred to [facility] for further evaluation. Troponin at [facility], 24>23. Reports exertional chest pressure and dyspnea [...] C on 04/18 which showed non-obstructive ASCVD. Initiated [...] sig migraines occur Diet: Carb Control diet 45/45/60 CHO counting level 1 High Protein DVT Prophylaxis: DOAC Code status: Attempt Cardiopulmonary Resuscitation - Inpatient Disposition: Discharge Location: AM-PAC Basic Mobility Raw Score: 24 PT: OT: PCP JOCY Franco [phone] Discussed with MD Kurt Ray PA-C APP1 pager [phone] 04/22/2023 CV HOSPITALIST ADDENDUM Date of Service: [...] 04/21/2023 6:10 PM EST CARDIOLOGY APP1 - [facility] DAILY PROGRESS NOTE Page [phone] to reach a provider 28/09 Admit Date: [...] Behavior: Behavior normal. Labs: Recent Labs 04/21/2333904/20/2331004/19/23 02404/18/23 02104/17/23 0333 WBC 7.1 6.6 7.5 6.7 [...] 12 CRP <=4.9 mg/L <3.0 <3.0 OSH [facility] troponin ~500. Telemetry: I have personally [...] disease secondary to obesity who presented to [facility] on 04/16 with chest pain responsive to SL NTG. Troponin ~500x2. Transferred to [facility] for further evaluation. Troponin at [facility], 24>23. Reports exertional chest pressure and dyspnea [...] and no pericardial effusion. She underw ent [facility] on 04/18 which showed non-obstructive [...] occur Diet: Daily Healthy Menu Choices/Cardiac diet ([facility]-Diet) 2 GM NA DVT Prophylaxis: DOAC Code status: Attempt Cardiopulmonary Resuscitation - Inpatient Disposition: [facility]charge [facility] Basic Mobility Raw Score: 22 PT: OT: PCP JOCY Franco [phone] * Eufemia Copeland MD - 04/20/2023 4:34 PM EST CARDIOLOGY APP1 - [facility] DAILY PROGRESS NOTE Page [phone] to reach a provider 28/09 Admit Date: [...] Behavior normal. Labs: Recent Labs 04/20/23 03104/19/23 0240 04/18/2320904/17/23 0333 WBC 6.6 7.5 6.7 7.4 HGB 14.2 14.8 15.2 14.8 HCT 42.7 45.5 44.9 44.3 PLATELET 231 240 233 233 MCV 93.0 93.6 91.1 92.5 Recent Labs 04/20/23 0311 04/19/23 0240 04/18/2320904/17/23 0333 NA 139 139 143 141 CL [...] 0210 04/17/23 0333 02/08/23 2208 09/27/22 0307 07/22/23 1750 [...] 12 CRP <=4.9 mg/L <3.0 <3.0 OSH [facility] troponin ~500. Telemetry: I have personally [...] disease secondary to obesity who presented to [facility] on 04/16 with chest pain responsive to SL NTG. Troponin ~500x2. Transferred to [facility] for further evaluation. Troponin at [facility], 24>23. Reports exertional chest pressure and dyspnea [...] and no pericardial effusion. She underw ent [facility] on 04/18 which showed non-obstructive [...] occur Diet: Daily Healthy Menu Choices/Cardiac diet ([facility]-Diet) 2 GM NA; 2000 mL FLUID DVT Prophylaxis: DOAC Code status: Attempt Cardiopulmonary Resuscitation - Inpatient Disposition: Discharge Location: AM-[facility] Basic Mobility Raw Score: 24 PT: OT: PCP JOCY Franco [phone] * Carrol La PA - 04/19/2023 12:32 PM EST CARDIOLOGY APP1 - [facility] DAILY PROGRESS NOTE Page [phone] to reach a provider 28/09 Admit Date: [...] Behavior: Behavior normal. Labs: Recent Labs 04/19/23 02404/18/2320904/17/23 033 WBC 7.5 6.7 7.4 HGB 14.8 15.2 14.8 HCT 45.5 44.9 44.3 PLATELET 240 233 233 MCV 93.6 91.1 92.5 Recent Labs 04/19/23 0240 04/18/2320904/17/23 033 NA 139 143 141 CL 105 [...] 12 CRP <=4.9 mg/L <3.0 <3.0 OSH [facility] troponin ~500. EKG: Sinus bradycardia, 47 bpm, PAC, possible left atrial enlargement, possible lateral infarct, QTc 511. Telemetry: I have personally reviewed and interpreted the telemetry from the last 24 hours. Resultsshow sinus bradycardia with HR 50s, PVCs, heart rate climbs to 70s with activity.. Imaging: [facility] 04/18/23 Conclusions: * Nonobstructive coronary [...] motion has increased. CTA PE protocol at [facility]- no PE but showed small pericardial [...] acute aortopathy. 4. No acute pulmonary findings. [facility] 06/09/2021-RA 4, PA 38/15 (24) PCWP 11, CO/CI 3.14/1.6. [facility] 08/30/2019-normal coronary arteries. Assessment & [...] disease secondary to obesity who presented to [facility] on 04/16 with chest pain responsive to SL NTG. Troponin ~500x2. Transferred to [facility] for further evaluation. Troponin at [facility], 24>23. Reports exertional chest pressure and dyspnea [...] continues. Diet: Daily Healthy Menu Choices/Cardiac diet ([facility]-Diet) 2 GM NA; 2000 mL FLUID DVT Prophylaxis: DOAC Code status: Attempt Cardiopulmonary Resuscitation - Inpatient Disposition: Discharge Location: [facility] Basic Mobility Raw Score: 24 PT: OT: PCP JOCY Franco [phone] Discussed with MD Carrol Aly PA-C APP1 Pager: [phone] 04/19/2023 * Nikkie Lew RCP - 04/18/2023 [...] note were not included. CARDIOLOGY APP1 - [facility] DAILY PROGRESS NOTE Page [phone] to reach a provider 28/09 Admit Date: [...] breathlessness. Awaiting cardiac catheterization potentially today if Breakdown Mill Operator availability allows.She remains on ACS therapies. [...] Behavior: Behavior normal. Labs: Recent Labs 04/18/2320904/17/23 033 WBC 6.7 7.4 HGB 15.2 14.8 HCT [...] CHOLHDL 3.9 Recent Labs 04/17/23 1944 04/17/23 033 GLUCOSE -- 89 POCGLU 128 -- Latest [...] motion has increased. CTA PE protocol at [facility]- no PE but showed small pericardial [...] ongoing chest pain -C 04/18 depending on Breakdown Mill Operator availability. #Hx of pAfib #Hx of [...] Score: 24 PT: OT: PCP JOCY Franco [phone] Discussed with MD Kurt Sheppard PA-C APP1 pager [phone] 04/18/2023 * Kurt Silveira PA - 04/17/2023 7:15 AM EST Images from the original note were not included. CARDIOLOGY APP1 - [facility] DAILY PROGRESS NOTE Page [phone] to reach a provider 28/09 Admit Date: [...] 12 CRP <=4.9 mg/L <3.0 <3.0 OSH [facility] troponin ~500. EKG: Sinus bradycardia, 47 [...] motion has increased. CTA PE protocol at [facility]- no PE but showed small pericardial [...] acute aortopathy. 4. No acute pulmonary findings. [facility] 06/09/2021-RA 4, PA 38/15 (24) PCWP 11, CO/CI 3.14/1.6. [facility] 08/30/2019-normal coronary arteries. Assessment & [...] or NTG drip if ongoing chest pain -[facility] 04/18 or 04/19 depending on Breakdown Mill Operator availability. #Hx of pAfib #Hx of AVNRT sp EPS and Ablation - hold eliquis. Last taken on 04/16/23 am. - Continue IV heparin. # Hx of PE- continue with IV heparin Diet: No diet orders on file DVT Prophylaxis: DOAC Code status: Attempt Cardiopulmonary Resuscitation - Inpatient Disposition: [facility]charge [facility]: [facility] Basic Mobility Raw Score: 14 PT: OT: PCP JOCY Franco [phone] Discussed with MD Kurt Sheppard PA-C APP1 pager [phone] 04/17/2023 documented in this encounter H&P Notes [...] on 04/01/[address] Tovar on [facility], restrictive lung disease secondary to [...] consistent with previous recordings. Troponin levels at [facility] showed a plateau at 23 > 27. [...] again 10/15, improving with sublingua Nitro. 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 fluticasone propionate (FLONASE) 50 mcg/actuation Anderson, Suspension 1 spray by Each Nare route [...] on 04/01/[address] Tovar on [facility], restrictive lung disease secondary to [...] if hypotensive / cardiogenic shock / inferior AR / sildenafil within past 24 hours) - [...] (see comments), grab bar - tub/shower ([employer]) DME Needed at Discharge: N/A Patient is insured through: Primary Insurance: [employer] [place] Payor[place] [employer] [place] / Plan: [employer] [place] EXCHANGE / Product Type: *No Product type* / Secondary Insurance: N/A Prescription Coverage: Yes This plan was formulated with input from patient and team. All are in agreement with plan. * Consult Note - Maegan Mike, ROM - 04/22/2023 10:38 AM EST Images from the original note were not included. [facility] [place] [address] INPATIENT CARDIOLOGY CONSULT PROGRESS NOTE Interval events: [...] insights. Discussed with MD Maegan De Leon, PROJECT DESIGNER Pager [phone] 04/22/2023 Associated attestation - Jaspreet Kinsey MD [...] (Interventions Implemented as Appropriate) * Plan of Karla - Charity Jackson RN - 04/21/2023 5:47 [...] Tatum MSW - 04/20/2023 2:22 PM EST HEALTH MANAGEMENT CONSULTANT received a consult to support patient with financial concerns. HEALTH MANAGEMENT CONSULTANT met with patient and introduced self. Patient stated due to hospitalization, she has been out of work and feeling stress around not being able to pay bills. I have a car payment and other bills and it's like I have to choose which one to pay and which one not to pay. HEALTH MANAGEMENT CONSULTANT validated patient's stress around financial concerns. HEALTH MANAGEMENT CONSULTANT asked patient if she has applied for [employer] or any other state benefits. Patient stated that she has, but is over the household income criteria to qualify for benefits. Patient shared that she owns her home outright and mainly concerned about making her car payment and transportation home. MSWstated that care management will help arrange for a ride, if needed. HEALTH MANAGEMENT CONSULTANT provided patient with community resources such as the [facility] Food Directory, the [facility] Community Action phone number, and the [facility] Citizen [place] on Aging contact info. HEALTH MANAGEMENT CONSULTANT available to support patient should anything else [...] Admitted From: Transfer from another hospital Location: [facility] Reason for Hospitalization: chest pain and cough Covid Vaccination Status: 1st, 2nd & booster Last COVID test: Lab Results Component Value Date [id number] Not Detected 06/13/2021 Past medical History: Past [...] In the past 12 months has the [employer], gas, oil, or water [employer] threatened to shut off services in your home?: Yes ([employer] is currently threatening to shut off electricity [...] ([facility]) Home Address confirmed as: [address] [facility] [place] [address] Social & Family Supports: All names listed below confirmed with patient as current and correct Extended Emergency Contact Information Primary Emergency Contact: Cathy Madrigalnn too.me Relation: Spouse Secondary Emergency Contact: ALYSSATALI Relation: Mother Current Care Provided by: self [...] Specific Information: N/A Health/Prescription Coverage: Primary Insurance: [employer] [place] Payor: [employer] [facility] [place] / Plan: [employer] EXCHANGE / Product Type: *No Product type* / Secondary Insurance: N/A ; Prescription Coverage: Yes Preferred Pharmacy: [id number] - [place], [place] - [address] [facility] [address] [facility] [address] [facility] [place], [place] - [address] [facility] [address] [facility] [address] [facility] [address] Status: Patient is a : No Primary Care Provider confirmed: JOCY Franco [phone] Patient/Caregiver Goals of Treatment: home w / family when MR Potential Needs for Transition of Care: other (see comments) (HEALTH MANAGEMENT CONSULTANT support; pt's spouse was denied twice for [...] Concerns to be Addressed: financial/insurance, discharge planning; HEALTH MANAGEMENT CONSULTANT consult placed to discuss available resources Assessment: [...] original note were not included. [facility] [address] [place] [address] INPATIENT CARDIOLOGY CONSULT NOTE Reason for Consult: [...] ACS with DAPT and heparin prior to [facility] 04/18, which was negative for [...] as Appropriate) * Plan of Care - O'Diallo, Kurt J, PA - 04/18/2023 5:37 PM EST Images [...] Went to cathlab, came back ~1115am, s/p [facility] with no coronary artery disease [...] for further details. JOCY Marie 04/17/2023 Pager [phone] * Plan of Care - Sudhakar Smith [...] PM EST Office Visit Cardiology at [address] [place] [address] Jaspreet Kinsey MD [facility] [place] [address] documented as of this encounter Procedures Procedure [...] who have questions please contact the health plant health care technician that requested your imaging first. ? 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 Following IV administration of 26.5 mCi technetium 99m sestamibi, SPECT-CT of the heart was obtained. Following IV injection of 8.8 mCi 59-hxaktg-9-deoxyglucose (FDG) and a standard uptake of approximately [...] obtained. Following IV injection of 8.8 mCi 01-zbjkei-9-deoxyglucose (FDG) and astandard uptake of approximately 60 [...] patients who have questions please contactthe health plant health care technician that requested your imaging first. Electronically signed by: Humberto Qureshi MD, [facility]([phone]), at 05/06/2023 11:09 AM Maegan Mike PROJECT DESIGNER IMG PET ORDERABLE S * MRI Cardiac [...] who have questions please contact the health plant health care technician that requested your imaging first. ? Electronically signed by: Karon Nur MD, [facility] ([phone]), at 04/21/2023 5:33 PM Narrative 04/21/2023 5:33 [...] patients who have questions please contactthe health plant health care technician that requested your imaging first. Terrence Maloney MD IMG MRI ORDERABLES * Hemogram (04/21/2023 3:40 AM EST) White Blood Cell 7.1 4.0 - 9.5 x10(3)/[facility] LABORATORY Red Blood Cell 4.59 4.00 - 5.21 x10(6)/[facility] LABORATORY Hemoglobin 14.4 11.7 - 15.5 g/dL [facility] Hematocrit 43.0 35.7 - 45.8 % [facility] Mean Cell Volume 93.7 82.6 - 94.4 fL [facility] Mean Cell Hemoglobin 31.4 27.1 - 32.0 pg [facility] Mean Cell Hemoglobin Concentration 33.5 31.7 - 35.0 g/dL [facility] Platelet 221 145 - 357 x10(3)/[facility] LABORATORY RDW Standard Deviation 43.5 37.0 - 46.0 fL [facility] RDW coefficient of variation 12.6 11.5 - 14.1 % [facility] Mean Platelet Volume 11.1 7.6 - 12.9 fL [facility] NRBC% auto 0.0 % [facility] NRBC Absolute 0.000 0.000 - 0.000 x10(3)/[facility] LABORATORY Blood 04/21/2023 3:40 AM EST 04/21/2023 3:58 AM EST Narrative Resulting Agency Comment Spec In Lab Ailyn Knight MD HEMATOLOGY ORDERABLE S [facility] [place] [address] * (ABNORMAL) BMP w/fasting Glucose (04/21/2023 3:40 AM EST) Glucose Fasting 107(H) 65 - 99 mg/dL [facility] Comment: ?Fasting* Glucose Interpretive Criteria Normal [...] of Diabetes Mellitus, Position Statement from the [place] [employer]. ??Diabetes Care, Volume 33, Supplement 1, Mar 2009 Blood Urea Nitrogen 20(H) 8 - 18 mg/dL [facility] Creatinine 1.14 0.70 - 1.20 mg/dL [facility] Sodium 138 135 - 145 mmol/L [facility] Potassium 3.8 3.5 - 5.0 mmol/L [facility] Comment: Please note: ??Patients with WBC >100,000 may have falsely elevated Potassium levels. ??For accurate Potassium quantification in these patients send serum separator tube (gold top) for subsequent determinations. ??Contact the Clinical Chemistry Laboratory if there are any questions. Chloride 106 98 - 107 mmol/L [facility] Carbon Dioxide 22 22 - 31 mmol/L [facility] Anion Gap 10 5 - 15 mmol/L [facility] Calcium 9.2 8.5 - 10.5 mg/dL [facility] Est Glomerular Filtration Rate 57(L) >=60 mL/min/1. 73 m?? [facility] Comment: This patient's estimated GFR was [...] Knight MD CHEMISTRY ORDERABLES Performing Organization Address [facility] Co de Phone Number [facility] [place] [address] * Magnesium (04/21/2023 3:40 AM EST) Magnesium 0.90 0.69 - 1.07 mmol/L [facility] Blood 04/21/2023 3:40 AM EST 04/21/2023 3:58 AM EST Narrative Resulting Agency Comment Spec In Lab Ailyn Knight MD CHEMISTRY ORDERABLES Performing Organization Address [facility] de Phone Number [facility] [place] [address] * (ABNORMAL) Troponin (04/20/2023 4:44 PM EST) Troponin-T, High Sensitivity 26(H) <=14 ng/L [facility] Comment: This patient's troponin T concentration [...] troponin value can be found in the [facility] Test Catalog Troponin - [facility] Test Catalog Reference: Fourth [place] Definition of Myocardial Infarction. Journal of the [place] [employer] 2018;72:9439-5496 Blood 04/20/2023 4:44 PM EST 04/20/2023 4:53 PM EST Narrative Resulting Agency Comment Spec In Lab Eufemia Copeland MD CHEMISTRY ORDERABL ES Performing Organization Address [facility]/[place] [address] * Duplex for DVT, Arm, Unilat (04/20/2023 4:22 PM EST) VB Text Report Department: Vascular Surgery Lab Patient: [id number] (LOIDA MADRIGAL) CPT: 00557 Referring Physician: TERRENCE MALONEY ?? Phone: Indications: [...] EST) Troponin-T, High Sensitivity 27(H) <=14 ng/L [facility] Comment: This patient's troponin T concentration [...] troponin value can be found in the [facility] Test Catalog Troponin - [facility] Test Catalog Reference: Fourth [place] Definition of Myocardial Infarction. Journal of the [place] [employer] 2018;72:9676-4414 Blood 04/20/2023 1:47 PM EST 04/20/2023 2:18 PM EST Narrative Resulting Agency Comment Spec In Lab Eufemia Copeland MD CHEMISTRY ORDERABL ES [facility] [place] [address] * (ABNORMAL) Troponin (04/20/2023 10:48 AM EST) Troponin-T, High Sensitivity 24(H) <=14 ng/L [facility] Comment: This patient's troponin T concentration [...] troponin value can be found in the [facility] Test Catalog Troponin - [facility] Test Catalog Reference: Fourth [place] Definition of Myocardial Infarction. Journal of the [place] [employer] 2018;72:7296-2639 Blood 04/20/2023 10:4 8 AM EST 04/20/2023 11:03 AM EST Narrative Resulting Agency Comment Spec In Lab Eufemia Copeland MD CHEMISTRY ORDERABL ES [facility] [place] [address] * EKG 12 Lead (04/20/2023 10:23 AM EST) Ventricular rate 60 BPM MUSE SYSTEM Atrial Rate 60 BPM MUSE SYSTEM P-R Interval 170 ms MUSE SYSTEM QRS Duration 86 ms MUSE SYSTEM Q-T Interval 470 ms MUSE SYSTEM QTC Calculated (Bezet) 470 ms MUSE SYSTEM Calculated P [place] 39 degrees MUSE SYSTEM Calculated R [place] 63 degrees MUSE SYSTEM Calculated T [place] -16 degrees MUSE SYSTEM INTERPRETATION Normal sinus [...] leads Confirmed by MD Benitez Gregory A. ([id number]) on 04/22/2023 12:10:07 PM MUSE SYSTEM 04/20/2023 10:2 3 AM EST 04/22/2023 12:10 PM EST Terrence Maloney MD ECG ORDERABLES MUSE SYSTEM * Hemogram (04/20/2023 3:11 AM EST) White Blood Cell 6.6 4.0 - 9.5 x10(3)/[facility]ORAT[facility] Red Blood Cell 4.59 4.00 - 5.21 x10(6)/[facility]ORY Hemoglobin 14.2 11.7 - 15.5 g/dL [facility] Hematocrit 42.7 35.7 - 45.8 % [facility] Mean Cell Volume 93.0 82.6 - 94.4 fL [facility] Mean Cell Hemoglobin 30.9 27.1 - 32.0 pg [facility] Mean Cell Hemoglobin Concentration 33.3 31.7 - 35.0 g/dL [facility] Platelet 231 145 - 357 x10(3)/[facility] LABORATORY RDW Standard Deviation 43.6 37.0 - 46.0 fL [facility] RDW coefficient of variation 12.6 11.5 - 14.1 % [facility] Mean Platelet Volume 11.0 7.6 - 12.9 fL [facility] NRBC% auto 0.0 % [facility] NRBC Absolute 0.000 0.000 - 0.000 x10(3)/[facility] Blood 04/20/2023 3:11 AM EST 04/20/2023 3:24 AM EST Narrative Resulting Agency Comment Spec In Lab Ailyn Knight MD HEMATOLOGY ORDERABLE S [facility] [place] [address] * (ABNORMAL) BMP w/fasting Glucose (04/20/2023 3:11 AM EST) Glucose Fasting 107(H) 65 - 99 mg/dL [facility] Comment: ?Fasting* Glucose Interpretive Criteria Normal [...] of Diabetes Mellitus, Position Statement from the [place] [employer]. ??Diabetes Care, Volume 33, Supplement 1, Mar 2009 Blood Urea Nitrogen 20(H) 8 - 18 mg/dL [facility] Creatinine 1.05 0.70 - 1.20 mg/dL [facility] Sodium 139 135 - 145 mmol/L [facility] Potassium 3.6 3.5 - 5.0 mmol/L [facility] Comment: Please note: ??Patients with WBC >100,000 may have falsely elevated Potassium levels. ??For accurate Potassium quantification in these patients send serum separator tube (gold top) for subsequent determinations. ??Contact the Clinical Chemistry Laboratory if there are any questions. Chloride 106 98 - 107 mmol/L [facility] Carbon Dioxide 21(L) 22 - 31 mmol/L [facility] Anion Gap 12 5 - 15 mmol/L [facility] Calcium 9.3 8.5 - 10.5 mg/dL [facility] Est Glomerular Filtration Rate 63 >=60 mL/min/1. 73 m?? [facility] Comment: This patient's estimated GFR was [...] Knight MD CHEMISTRY ORDERABLES Performing Organization Address City/[facility]/ZIP Co de Phone Number [facility] [place] [address] * Magnesium (04/20/2023 3:11 AM EST) Magnesium 0.91 0.69 - 1.07 mmol/L [facility] Blood 04/20/2023 3:11 AM EST 04/20/2023 3:24 AM EST Narrative Resulting Agency Comment Spec In Lab Ailyn Knight MD CHEMISTRY ORDERABLES Performing Organization Address [facility] Co de Phone Number [facility] [place] [address] * Respiratory Panel PCR (04/19/2023 2:05 PM EST) Respiratory Panel Source [employer] [facility] Respiratory Panel PCR Negative Negative [facility] Comment: Respiratory Panels are performed on the [employer], using multiplexed PCR nucleic acid detection. ??Negative results do not preclude respiratory infection and should not be used as the sole basis for diagnosis, treatment or other management decisions. Adenovirus Not Detected Not Detected [facility] Coronavirus HKU1 Not Detected Not Detected [facility] Coronavirus NL63 Not Detected Not Detected [facility] Coronavirus 229E Not Detected Not Detected [facility] Coronavirus OC43 Not Detected Not Detected [facility] SARS-CoV-2 Not Detected Not Detected [facility] Comment: Testing for SARS-CoV-2 (Severe acute respiratory syndrome coronavirus 2) to aid in the diagnosis of COVID-19 is performed using the [employer] Respiratory Panel 2.1 (Mobile2Me) as authorized by the FDA issued Emergency Use Authorization (EUA). This panel also tests for multiple other viral and bacterial pathogens. This assay is intended for In-vitro Diagnostic (IVD) use with nasopharyngeal swabs in viral transport media. The assay is performed based on the instructions for use and additional guidance provided by the FDA. Testing is performed in laboratories within the [facility], each of which is certified under [...] fact sheets at the following FDA website: https://www.fda.gov/medical-devices/vcyobvzezie-uwperqa-4294-xsdri-25-capsyvpzh- use-a vozgbnwquwlwh-itntudd-lsijvip/sqngz-agepntdlsws-klzu Human Metapneumovirus Not Detected Not Detected [facility] Human Rhinovirus/Enterov irus Not Detected Not Detected [facility] Influenza A Not Detected Not Detected [facility] Influenza B Not Detected Not Detected [facility] Parainfluenza 1 Not Detected Not Detected [facility] Parainfluenza 2 Not Detected Not Detected [facility] Parainfluenza 3 Not Detected Not Detected [facility] Parainfluenza 4 Not Detected Not Detected [facility] Respiratory Syncytial Virus Not Detected Not Detected [facility] Chlamydophila pneumoniae Not Detected Not Detected [facility] Mycoplasma pneumoniae Not Detected Not Detected [facility] Nasopharyngeal Swab Other / Unknown 04/19 2:05 PM EST 04/19/2023 3:16 PM EST Narrative Resulting Agency Comment Spec In Lab Carrol SANDRA MICROBIOLOGY - GENER AL ORDERABLES [facility] [place] [address] * (ABNORMAL) Urine culture (04/19/2023 10:25 AM EST) Urine Culture 10,000-49,000 cfu/ml mixed mucosal elmer Note: Culture shows multiple bacterial species suggesting mucosal contamination. (A) [facility] Clean Catch Urine 04/19/2023 10:25 AM EST 04/19/2023 12:49 PM EST Narrative Resulting Agency Comment Spec In Lab Carrol SANDRA MICROBIOLOGY - GENER AL ORDERABLES Performing Organization Address [facility] Co de Phone Number [facility] [place] [address] * (ABNORMAL) Urinalysis Microscopic Exam (04/19/2023 10:25 AM EST) RBC, Urine 1 0 - 4 /HPF [facility] WBC, Urine 10(H) 0 - 5 /HPF [facility] Squamous Epithelial Cells Raw Data, Urine 4 <=4 /HPF [facility] Hyaline Casts, Urine 1 0 - 2 /LPF [facility] Clean Catch Urine 04/19/2023 10:25 AM EST 04/19/2023 11:08 AM EST Narrative Resulting Agency Comment Spec In Lab Carrol SANDRA URINE ORDERABLES Performing Organization Address City/[facility] Co de Phone Number [facility] [place] [address] * (ABNORMAL) Urinalysis with reflex Culture (04/19/2023 10:25 AM EST) Glucose, Urine Dipstick >=1000(Criti edy) Negative mg/dL [facility] Comment: Urinalysis result NOT critical without a combination of Glucose greater than or equal to 500 mg/dL AND Ketones greater than or equal to 80 mg/dL Protein, Urine Dipstick Negative Negative mg/dL [facility] Bilirubin, Urine Dipstick Negative Negative mg/dL [facility] Comment: Clinical correlation required for positive Urine Bilirubin results as false positive may occur with some drugs and drug related products. If a false positive is suspected a serum total bilirubin should be considered if clinically indicated. Urobilinogen, Urine Dipstick Normal Normal mg/dL [facility] pH, Urn (dipstick) 5.5 5.0 - 8.0 [facility] Blood, Urine Dipstick Negative Negative mg/dL [facility] Ketone, Urine Dipstick Negative Negative mg/dL [facility] Nitrite, Urine Dipstick Negative Negative [facility] Leukocytes, Urine Dipstick Small(A) Negative [facility] Appearance, Urine Dipstick Clear Clear [facility] Specific [place] Urine Automated 1.024 1.005 - 1.030 [facility] Color, Urine Dipstick Yellow Yellow [facility] Reflex to Culture Yes [facility] Clean Catch Urine 04/19/2023 10:25 AM EST 04/19/2023 11:08 AM EST Narrative Resulting Agency Comment Spec In Lab Ailyn Knight MD URINE ORDERABLES [facility] [place] [address] * Arterial Duplex Arm, Unilat (04/19/2023 9:40 AM EST) VB Text Report Department: Vascular Surgery Lab Patient: [id number] (LOIDA MADRIGAL) CPT: 23888 Referring Physician: AILYN KNIGHT ?? Phone: Indications: [...] Blood Cell 7.5 4.0 - 9.5 x10(3)/mcL [facility] Red Blood Cell 4.86 4.00 - 5.21 x10(6)/[facility] Hemoglobin 14.8 11.7 - 15.5 g/dL [facility] Hematocrit 45.5 35.7 - 45.8 % [facility] Mean Cell Volume 93.6 82.6 - 94.4 fL [facility] Mean Cell Hemoglobin 30.5 27.1 - 32.0 pg [facility] Mean Cell Hemoglobin Concentration 32.5 31.7 - 35.0 g/dL [facility] Platelet 240 145 - 357 x10(3)/[facility]ORY RDW Standard Deviation 43.8 37.0 - 46.0 fL [facility] RDW coefficient of variation 12.7 11.5 - 14.1 % [facility] Mean Platelet Volume 11.0 7.6 - 12.9 fL [facility] NRBC% auto 0.0 % [facility] NRBC Absolute 0.000 0.000 - 0.000 x10(3)/[facility] Blood 04/19/2023 2:40 AM EST 04/19/2023 2:57 AM EST Narrative Resulting Agency Comment Spec In Lab Ailyn Knight MD HEMATOLOGY ORDERABLE S Performing Organization Address City/State/[facility] Co de Phone Number [facility] [place] [address] * (ABNORMAL) BMP w/fasting Glucose (04/19/2023 2:40 AM EST) Glucose Fasting 106(H) 65 - 99 mg/dL [facility] Comment: ?Fasting* Glucose Interpretive Criteria Normal [...] of Diabetes Mellitus, Position Statement from the [place] [employer]. ??Diabetes Care, Volume 33, Supplement 1, Mar 2009 Blood Urea Nitrogen 22(H) 8 - 18 mg/dL [facility] Creatinine 1.11 0.70 - 1.20 mg/dL [facility] Sodium 139 135 - 145 mmol/L [facility] Potassium 4.0 3.5 - 5.0 mmol/L [facility] Comment: Please note: ??Patients with WBC >100,000 may have falsely elevated Potassium levels. ??For accurate Potassium quantification in these patients send serum separator tube (gold top) for subsequent determinations. ??Contact the Clinical Chemistry Laboratory if there are any questions. Chloride 105 98 - 107 mmol/L [facility] Carbon Dioxide 20(L) 22 - 31 mmol/L [facility] Anion Gap 14 5 - 15 mmol/L [facility] Calcium 9.5 8.5 - 10.5 mg/dL [facility] Est Glomerular Filtration Rate 59(L) >=60 mL/min/1. 73 m?? [facility] Comment: This patient's estimated GFR was [...] In Lab Ailyn Knight MD CHEMISTRY ORDERABLES [facility] [place] [address] * Magnesium (04/19/2023 2:40 AM EST) Magnesium 0.97 0.69 - 1.07 mmol/L [facility] Blood 04/19/2023 2:40 AM EST 04/19/2023 2:57 AM EST Narrative Resulting Agency Comment Spec In Lab Ailyn Knight MD CHEMISTRY ORDERABLES Performing Organization Address [facility]/State/ZIP Co de Phone Number [facility] [place] [address] * CARDIAC CATHETERIZATION (04/18/2023 11:05 AM EST) Anatomical Region Laterality Modality Other Narrative 04/19/2023 6:57 AM EST ?[facility] ? Cardiac Catheterization/Intervention Report ? Patient Name: Neisha, Loida ? Procedure Date: 04/18/2023 ? A #: [id number] ? Primary Physician: Danilo, Dustin Alicea ? Case #: [id number] ? File Name: [id number] ? Catheterization Order Number: [id number] ? [facility] ? Final Report [place], [place] ? Patient Name: ? Loida Neisha ? ID#: ?[id number] ? : ?1970 ? Procedure Date: ? [...] was Urgent. The indication for ?the lab clerk visit is ACS greater than 24 hrs. [...] Procedure Note Dustin Carrasco MD - 05/03/2023 [facility] Cardiac Catheterization/Intervention Report Patient Name: Loida Madrigal Procedure Date: 04/18/2023 A #: [id number] Primary Physician: Dustin Carrasco Case #: [id number] File Name: [id number] Catheterization Order Number: [id number] [facility] FinalReport [place], [place] Patient Name: Loida Madrigal ID#:[id number] :1970 Procedure Date: April 18, 2023 Case [...] was designated as ASA Class III. [facility] 4: Vulnerable. [...] procedure was Urgent. The indicationfor the lab clerk visit is ACS greater than 24 hrs. [...] units of heparin were administered. A total [id number] of Omnipaque were opened, 65cc of Omnipaque were administered [id number] of Omnipaque were wasted. Radiation: Fluoro time [...] 8:23 AM EST) UF Heparin 0.39 IU/mL [facility] Comment: Heparin (anti-Xa) levels should be [...] MD HEMATOLOGY ORDERABLE S Performing Organization Address City/State/[facility] Co de Phone Number [facility] [place] [address] * Differential, Automated (04/18/2023 2:10 AM EST) Neutrophil % 51.4 % [facility] Neutrophil Absolute 3.43 1.70 - 6.10 x10(3)/[facility] Lymph % 33.8 % [facility] Lymphocytes Abs 2.2 0.9 - 3.2 x10(3)/[facility] Monocyte % 9.9 % [facility] Monocyte Abs 0.7 0.3 - 0.9 x10(3)/[facility] Eos % 3.9 % [facility] Eosinophils Abs 0.3 0.0 - 0.4 x10(3)/[facility] Basophil % 0.8 % [facility] Baso Absolute 0.0 0.0 - 0.1 x10(3)/[facility] Immature Gran % 0.20 % [facility] Comment: Immature granulocytes(IG's)percentage and absolute count will include metamyelocytes, myelocytes, and promyelocytes. Blood smears from CBCs yielding IG's will be scanned manually for concordance. If this scan disagrees with the automated IG or if promyelocytes are noted, a manual differential will be performed. Immature Gran Absolute 0.01 0.00 - 0.04 x10(3)/[facility] Blood 04/18/2023 2:10 AM EST 04/18/2023 2:44 AM EST Narrative Resulting Agency Comment Spec In Lab Terrence Maloney MD HEMATOLOGY ORDERABLE S Performing Organization Address City/[facility] Co de Phone Number [facility] [place] [address] * Hemogram (04/18/2023 2:10 AM EST) White Blood Cell 6.7 4.0 - 9.5 x10(3)/[facility] Red Blood Cell 4.93 4.00 - 5.21 x10(6)/[facility] Hemoglobin 15.2 11.7 - 15.5 g/dL [facility] Hematocrit 44.9 35.7 - 45.8 % [facility] Mean Cell Volume 91.1 82.6 - 94.4 fL [facility] Mean Cell Hemoglobin 30.8 27.1 - 32.0 pg [facility] Mean Cell Hemoglobin Concentration 33.9 31.7 - 35.0 g/dL [facility] Platelet 233 145 - 357 x10(3)/[facility] RDW Standard Deviation 42.0 37.0 - 46.0 fL [facility] RDW coefficient of variation 12.8 11.5 - 14.1 % [facility] Mean Platelet Volume 11.3 7.6 - 12.9 fL [facility] NRBC% auto 0.0 % [facility] NRBC Absolute 0.000 0.000 - 0.000 x10(3)/[facility] Blood 04/18/2023 2:10 AM EST 04/18/2023 2:44 AM EST Narrative Resulting Agency Comment Spec In Lab Terrence Maloney MD HEMATOLOGY ORDERABLE S Performing Organization Address City/[facility]/ZIP Co de Phone Number [facility] [place] [address] * Heparin (unfractionated) Level (04/18/2023 2:10 AM EST) UF Heparin 0.50 IU/mL [facility] Comment: Heparin (anti-Xa) levels [...] MD HEMATOLOGY ORDERABLE S Performing Organization Address City/State/[facility] Co de Phone Number [facility] [place] [address] * (ABNORMAL) BMP w/fasting Glucose (04/18/2023 2:10 AM EST) Glucose Fasting 98 65 - 99 mg/dL [facility] Comment: ?Fasting* Glucose Interpretive Criteria Normal [...] of Diabetes Mellitus, Position Statement from the [place] [employer]. ??Diabetes Care, Volume 33, Supplement 1, Mar 2009 Blood Urea Nitrogen 23(H) 8 - 18 mg/dL [facility] Creatinine 1.18 0.70 - 1.20 mg/dL [facility] Sodium 143 135 - 145 mmol/L [facility] Potassium 3.6 3.5 - 5.0 mmol/L [facility] Comment: Please note: ??Patients with WBC >100,000 may have falsely elevated Potassium levels. ??For accurate Potassium quantification in these patients send serum separator tube (gold top) for subsequent determinations. ??Contact the Clinical Chemistry Laboratory if there are any questions. Chloride 107 98 - 107 mmol/L [facility] Carbon Dioxide 24 22 - 31 mmol/L [facility] Anion Gap 12 5 - 15 mmol/L [facility] Calcium 9.2 8.5 - 10.5 mg/dL [facility] Est Glomerular Filtration Rate 55(L) >=60 mL/min/1. 73 m?? [facility] Comment: This patient's estimated GFR [...] In Lab Ailyn Knight MD CHEMISTRY ORDERABLES [facility] [place] [address] * Magnesium (04/18/2023 2:10 AM EST) Magnesium 1.02 0.69 - 1.07 mmol/L [facility] Blood 04/18/2023 2:10 AM EST 04/18/2023 2:44 AM EST Narrative Resulting Agency Comment Spec In Lab Ailyn Knight MD CHEMISTRY ORDERABLES [facility] [place] [address] * LDL Cholesterol, Direct (04/18/2023 2:10 AM EST) LDL Cholesterol, Direct 105 mg/dL [facility] Comment: Lowest Risk: <100 mg/dL Lower Risk: 100-129 mg/dL Borderline High Risk: 130-159 mg/dL High Risk: 160-189 mg/dL Very High Risk: >yg=200 mg/dL Blood 04/18/2023 2:10 AM EST 04/18/2023 2:44 AM EST Narrative Resulting Agency Comment Spec In Lab Terrence Maloney MD CHEMISTRY ORDERABLES [facility] [place] [address] * Hemoglobin A1c (04/18/2023 2:10 AM EST) Hemoglobin A1c 5.6 4.3 - 5.6 % [facility] Comment: Reference Range: 4.3 - 5.6% [...] Mellitus, Diabetes Care 2013; 36: Suppl. 1, U11-73 Estimated Average Glucose 115 mg/dL [facility] Blood 04/18/2023 2:10 AM EST 04/18/2023 2:44 AM EST Narrative Resulting Agency Comment Spec In Lab Terrence Maloney MD CHEMISTRY ORDERABLES [facility] [place] [address] * Lipid Panel (Reflex Direct LDL) (04/18/2023 2:10 AM EST) Cholesterol, Total 173 mg/dL [facility] Comment: Lower Risk: <200 mg/dL Average Risk: 200-239 mg/dL Higher Risk: >cr=423 mg/dL Triglyceride 174 mg/dL [facility] Comment: Average Risk/Lower Risk: <150 mg/dL Borderline High Risk: 150-199 mg/dL High Risk: 200-499 mg/dL Very High Risk: >wv=414 mg/dL HDL Cholesterol 44 mg/dL [facility] Comment: Males: ?? Higher Risk: <40 mg/dL Females: ?? Higher Risk: <50 mg/dL LDL Cholesterol 94 mg/dL [facility] Comment: Lowest Risk: <100 mg/dL Lower Risk: 100-129 mg/dL Borderline High Risk: 130-159 mg/dL High Risk: 160-189 mg/dL Very High Risk: >cg=486 mg/dL Cholesterol/HDL Ratio 3.9 ratio [facility] Lipid Interpretation See Note [facility] Comment: Lipid management should be guided by a patient? s ASCVD risk, goals and preferences. ACC/AHA Guidelines recommend high intensity statin if clinical ASCVD or LDL greater than or equal to 190 mg/dL. [email or web address] Adults aged 40-75 with LDL 70-189 mg/dL should have their 10 year ASCVD risk estimated with the ACC/AHA ASCVD risk body shop estimator http://tools.acc.org/FVLPK-Qhjo-Uwgupbefg/ Statin should be discussed if risk greater [...] In Lab Terrence Maloney MD CHEMISTRY ORDERABLES [facility] [place] [address] * POCT Glucose (04/17/2023 7:44 PM EST) Glucose, POC 128 65 - 199 mg/dL [facility] Comment: Supplemental ranges: <140 mg/dL before meals <180 mg/dL all other times of the day Blood 04/17/2023 7:44 PM EST 04/17/2023 7:44 PM EST Ailyn Knight MD POINT OF CARE TEST O RDERABLES Performing Organization Address [facility] Co de Phone Number [facility] [place] [address] * (ABNORMAL) Heparin (unfractionated) Level (04/17/2023 6:01 PM EST) UF Heparin 1.14(Crit ical) IU/mL [facility] Comment: Critical Result called by ?? [...] ORDERABLE S Performing Organization Address [facility] Co de Phone Number [facility] [place] [address] * (ABNORMAL) Heparin (unfractionated) Level (04/17/2023 12:45 PM EST) UF Heparin 1.39(Crit ical) IU/mL [facility] Comment: Critical Result called by ?? [...] MD HEMATOLOGY ORDERABLE S Performing Organization Address City/State/[facility] Co de Phone Number [facility] [address] [place] [phone] * ECHO LMTD W CONTRAST W LMTD SPEC DOPP COLOR DOPP (04/17/2023 11:59 AM EST) Pathologist [facility] EF 58 HEARTLAB SYSTEM Anatomical Region Laterality Modality Cardiac Other 04/17/2023 10:2 4 AM EST Narrative 04/17/2023 12:09 PM EST 1 [place] [address] ? Echocardiogram Report Name: LOIDA MADRIGAL ? Study Date: 04/17/2023 10:24 AMBP: 114/64 mmHg ? Patient Location: : 1970 ? Height: 160 cm ? Account: [id number] Age: 53 yrs ? Weight: 98 kg Gender: Female ?BSA: 2.0 m2 Ordering Physician: TERRENCE MALONEY Referring Physician: TERRENCE MALONEY Performed By: HAIM Becerra Reason For Study: Chest pain; NSTEMI Exam Location: [facility]. Interpretation Summary Left ventricle is [...] wall motion has increased. Procedure Limited - [id number]. Image enhancement Optison was used for left [...] Note Jaspreet Kinsey MD - 04/17/2023 1 [place] [address] Echocardiogram Report Name: LOIDA MADRGIAL Study Date: 410:24 AMBP: 114/64 mmHg Patient Location: 4A : 1970 Height: 160 cm Account: [id number] Age: 53 yrs Weight: 98 kg Gender: Female BSA: 2.0 m2 Ordering Physician: TERRENCE MALONEY Referring Physician: TERRENCE MLAONEY Performed By: HAIM Becerra Reason For Study: Chest pain; NSTEMI Exam Location: [facility]. Interpretation Summary Left ventricle is normal in size and wall thickness. Normal globalsystolic function with regional wall motion abnormalities as ascribed on the anterior/anterolateral aspect. Right ventricle is normal in size and systolic function. No significant cardiac valve findings. No pericardial effusion. Compared to prior study dated 02/09/2023, the extent of the anteriorabnormal wall motion has increased. Procedure Limited - [id number]. Image enhancement Optison was used for left [...] AM EST) UF Heparin 1.41(Crit ical) IU/mL [facility] Comment: Critical Result called by ?? [...] MD HEMATOLOGY ORDERABLE S Performing Organization Address City/State/[facility] Co de Phone Number [facility] [place] [address] * (ABNORMAL) Troponin (04/17/2023 6:43 AM EST) Troponin-T, High Sensitivity 23(H) <=14 ng/L [facility] Comment: This patient's troponin T concentration [...] troponin value can be found in the [facility] Laboratory Test Catalog Troponin - [facility] Test Catalog Reference: Fourth [place] Definition of Myocardial Infarction. Journal of the [place] College [employer] 2018;72:6870-2759 Blood 04/17/2023 6:43 AM EST 04/17/2023 6:52 AM EST Narrative Resulting Agency Comment Spec In Lab Terrence Maloney MD CHEMISTRY ORDERABLES Performing Organization Address City/[facility]/[place] [address] * EKG 12 Lead (04/17/2023 3:41 AM EST) Pathologist [facility] Ventricular rate 47 BPM MUSE SYSTEM Atrial Rate 47 BPM MUSE SYSTEM P-R Interval 186 ms MUSE SYSTEM QRS Duration 90 ms MUSE SYSTEM Q-T Interval 578 ms MUSE SYSTEM QTC Calculated (Bezet) 511 ms MUSE SYSTEM Calculated P [place] 24 degrees MUSE SYSTEM Calculated R [place] 23 degrees MUSE SYSTEM Calculated T [place] 27 degrees MUSE SYSTEM INTERPRETATION Sinus bradycardia with Premature atrial complexes Possible Left atrial enlargement Possible Lateral infarct , age undetermined Prolonged QT Abnormal ECG When compared with ECG of 01-APR-2023 12:28, Premature atrial complexes are now Present Vent. rate has decreased BY ??33 BPM Nonspecific T wave abnormality, improved in Anterior leads Confirmed by MD Angelo Danette ([id number]) on 04/20/2023 8:28:40 PM MUSE SYSTEM 04/17/2023 3:41 AM EST 04/20/2023 8:28 PM EST Terrence Maloney MD ECG ORDERABLES Performing Organization Address City/[facility]/ZIP Co de Phone Number MUSE SYSTEM * Differential, Automated (04/17/2023 3:33 AM EST) Pathologist [facility] Neutrophil % 54.4 % [facility] Neutrophil Absolute 4.02 1.70 - 6.10 x10(3)/[facility] LAB[facility] Lymph % 32.0 % [facility] Lymphocytes Abs 2.4 0.9 - 3.2 x10(3)/[facility] Monocyte % 8.7 % [facility] Monocyte Abs 0.6 0.3 - 0.9 x10(3)/[facility] Eos % 3.9 % [facility] Eosinophils Abs 0.3 0.0 - 0.4 x10(3)/[facility] Basophil % 0.7 % [facility] Baso Absolute 0.0 0.0 - 0.1 x10(3)/[facility] LAB[facility]ORY Immature Gran % 0.30 % [facility] Comment: Immature granulocytes(IG's)percentage and absolute count will include metamyelocytes, myelocytes, and promyelocytes. Blood smears from CBCs yielding IG's will be scanned manually for concordance. If this scan disagrees with the automated IG or if promyelocytes are noted, a manual differential will be performed. Immature Gran Absolute 0.02 0.00 - 0.04 x10(3)/[facility] Blood 04/17/2023 3:33 AM EST 04/17/2023 3:42 AM EST Narrative Resulting Agency Comment Spec In Lab Terrence Maloney MD HEMATOLOGY ORDERABLE S Performing Organization Address City/State/[facility] Co de Phone Number [facility] [place] [address] * Hemogram (04/17/2023 3:33 AM EST) White Blood Cell 7.4 4.0 - 9.5 x10(3)/[facility] Red Blood Cell 4.79 4.00 - 5.21 x10(6)/[facility] Hemoglobin 14.8 11.7 - 15.5 g/dL [facility] Hematocrit 44.3 35.7 - 45.8 % [facility] Mean Cell Volume 92.5 82.6 - 94.4 fL [facility] Mean Cell Hemoglobin 30.9 27.1 - 32.0 pg [facility] Mean Cell Hemoglobin Concentration 33.4 31.7 - 35.0 g/dL [facility] Platelet 233 145 - 357 x10(3)/[facility]ATORY RDW Standard Deviation 43.4 37.0 - 46.0 fL [facility] RDW coefficient of variation 12.7 11.5 - 14.1 % [facility] Mean Platelet Volume 11.0 7.6 - 12.9 fL [facility] NRBC% auto 0.0 % [facility] NRBC Absolute 0.000 0.000 - 0.000 x10(3)/[facility] Blood 04/17/2023 3:33 AM EST 04/17/2023 3:42 AM EST Narrative Resulting Agency Comment Spec In Lab Terrence Maloney MD HEMATOLOGY ORDERABLE S Performing Organization Address [facility] Co de Phone Number [facility] [place] [place] [address] * Sedimentation rate (04/17/2023 3:33 AM EST) Sedimentation Rate Automated 12 2 - 39 mm/hr [facility] Comment: Effective February 15, 2019 new capillary photometric technology has resulted in a change in reference ranges. It is recommended that each ESR result be reviewed with its own age appropriate reference range. Blood 04/17/2023 3:33 AM EST 04/17/2023 3:42 AM EST Narrative Resulting Agency Comment Spec In Lab Terrence Maloney MD HEMATOLOGY ORDERABLE S Performing Organization Address City/[facility]/ZIP Co de Phone Number [facility] [place] [place] [address] * CRP, acute inflammation (04/17/2023 3:33 AM EST) C-Reactive Protein <3.0 <=4.9 mg/L [facility] Blood 04/17/2023 3:33 AM EST 04/17/2023 3:42 AM EST Narrative Resulting Agency Comment Spec In Lab Terrence Maloney MD CHEMISTRY ORDERABLES [facility] [place] [address] * (ABNORMAL) Troponin (04/17/2023 3:33 AM EST) Troponin-T, High Sensitivity 24(H) <=14 ng/L [facility] Comment: This patient's troponin T concentration [...] troponin value can be found in the [facility] Test Catalog Troponin - [facility] Test Catalog Reference: Fourth [place] Definition of Myocardial Infarction. Journal of the [place] College of [employer]iology 2018;72:8012-2284 Blood 04/17/2023 3:33 AM EST 04/17/2023 3:42 AM EST Narrative Resulting Agency Comment Spec In Lab Terrence Maloney MD CHEMISTRY ORDERABLES Performing Organization Address City/[facility]/ZIP Co de Phone Number [facility] [place] [address] * (ABNORMAL) APTT (04/17/2023 3:33 AM EST) Partial Thromboplastin Time 40(H) 25 - 37 sec [facility] Comment: The PTT is NOT appropriate for heparin monitoring. Use the Anti-Xa level for heparin monitoring (HEP UFH) or LMWH monitoring (HEP LMW). A PTT less than 37 seconds generally indicates adequate hemostasis. Blood 04/17/2023 3:33 AM EST 04/17/2023 3:42 AM EST Narrative Resulting Agency Comment Spec In Lab Terrence Maloney MD HEMATOLOGY ORDERABLE S Performing Organization Address [facility] Co de Phone Number [facility] [place] [address] * (ABNORMAL) Prothrombin Time (04/17/2023 3:33 AM EST) Prothrombin Time 13.3(H) 9.4 - 12.5 sec [facility] International Normalization Ratio 1.2 [facility] Comment: An INR <2.0 indicates adequate [...] ORDERABLE S Performing Organization Address [facility] Co de Phone Number [facility] [place] [place] [address] * Hepatic Function Panel (04/17/2023 3:33 AM EST) Protein, Total 6.9 6.1 - 8.0 g/dL [facility] Albumin 4.2 3.2 - 5.2 g/dL [facility] Aspartate Aminotransferase Not Perf 0 - 30 [facility] Comment: Unable to quantitate due to sample hemolysis. ??Sample redraw suggested. Called by: Danny Bowles, Read back by: Nyla Cassidy, Date/Time:04/17/23 05:06. Alanine Aminotransferase 17 0 - 30 unit/L [facility] Alkaline Phosphatase 59 35 - 105 unit/L [facility] Bilirubin, Total 0.4 0.2 - 1.3 mg/dL [facility] Bilirubin, Direct 0.1 0.0 - 0.3 mg/dL [facility] Blood 04/17/2023 3:33 AM EST 04/17/2023 3:42 AM EST Narrative Resulting Agency Comment Spec In Lab Terrence Maloney MD CHEMISTRY ORDERABLES Performing Organization Address City/[facility]/ZIP Co de Phone Number [facility] [place] [address] * (ABNORMAL) pro-Brain Natriuretic Peptide (04/17/2023 3:33 AM EST) NT-proBNP 867(H) <=124 pg/mL [facility] Blood 04/17/2023 3:33 AM EST 04/17/2023 3:42 AM EST Narrative Resulting Agency Comment Spec In Lab Terrence Maloney MD CHEMISTRY ORDERABLES Performing Organization Address [facility] Co de Phone Number [facility] [place] [address] * (ABNORMAL) TSH (04/17/2023 3:33 AM EST) Thyroid Stimulating Hormone 5.93(H) 0.27 - 4.20 mcIU/mL [facility] Comment: Reference Interval (mcIU/mL): Females: ??First Trimester: 0.23-3.88 ??Second Trimester: 0.22-3.90 ??Third Trimester: 0.44-4.66 Blood 04/17/2023 3:33 AM EST 04/17/2023 3:42 AM EST Narrative Resulting Agency Comment Spec In Lab Terrence Maloney MD CHEMISTRY ORDERABLES Performing Organization Address City/[facility] Co de Phone Number [facility] [place] [address] * Phosphorus (04/17/2023 3:33 AM EST) Phosphorus 4.1 2.5 - 4.5 mg/dL [facility] Blood 04/17/2023 3:33 AM EST 04/17/2023 3:42 AM EST Narrative Resulting Agency Comment Spec In Lab Terrence Maloney MD CHEMISTRY ORDERABLES Performing Organization Address [facility] Co de Phone Number [facility] [place] [address] * Magnesium (04/17/2023 3:33 AM EST) Magnesium 0.99 0.69 - 1.07 mmol/L [facility] Blood 04/17/2023 3:33 AM EST 04/17/2023 3:42 AM EST Narrative Resulting Agency Comment Spec In Lab Terrence Maloney MD CHEMISTRY ORDERABLES Performing Organization Address [facility] de Phone Number [facility] [place] [address] * (ABNORMAL) Basic Metabolic Panel (non-fasting) (04/17/2023 3:33 AM EST) Glucose 89 65 - 199 mg/dL [facility] Comment:Diabetes: >=200 mg/d L plus symptoms Blood Urea Nitrogen 19(H) 8 - 18 mg/dL [facility] Creatinine 1.19 0.70 - 1.20 mg/dL [facility] Sodium 141 135 - 145 mmol/L [facility] Potassium 4.0 3.5 - 5.0 mmol/L [facility] Comment: Please note: ??Patients with WBC >100,000 may have falsely elevated Potassium levels. ??For accurate Potassium quantification in these patients send serum separator tube (gold top) for subsequent determinations. ??Contact the Clinical Chemistry Laboratory if there are any questions. Chloride 106 98 - 107 mmol/L [facility] Carbon Dioxide 22 22 - 31 mmol/L [facility] Anion Gap 13 5 - 15 mmol/L [facility] Calcium 9.4 8.5 - 10.5 mg/dL [facility] Est Glomerular Filtration Rate 54(L) >=60 mL/min/1. 73 m?? [facility] Comment: This patient's estimated GFR [...] In Lab Terrence Maloney MD CHEMISTRY ORDERABLES [facility] [place] [address] * Film Library- Storage Only CT Chest [...] 0828 (Given - Provider: Chilo Nickerson RN) 0813 (Given - Provider: Charity Jackson RN) 0924 (Given - Provider: China Myers) apixaban (Eliquis) tablet 5 mg 5 mg, Oral, 2 TIMES DAILY, First dose on Wed04/19/23 at 1030, Until Discontinued, Anticoagulant, Routine, Restricted anticoagulant, choose the most appropriate response: Appoved indication of DVT and/or PE 08 (Given - Provider: Chilo Nickerson RN)2010 (Given - Provider: Zoila Rooney RN) 08 (Given - Provider: Charity Jackson RN)2100 (Given - Provider: Zoila Rooney RN) 0924 (Given - Provider: China Myers) atorvastatin (Lipitor) [...] 0812 (Given - Provider: Charity Jackson RN) 922 [...] on 04/17/23 at 0900, Until Discontinued, Routine 28 (Given - Provider: Chilo Nickerson RN)2010 (Given - Provider: Zoila Rooney RN) 811 (Given - Provider: Charity Jackson RN)2100 (Given - Provider: Zoila Rooney RN) 924 (Given - Provider: China Myers) sodium chloride 0.9 % (flush) (BD PosiFlush Normal Saline 0.9) flush 5 mL 5 mL, Intravenous, 2 TIMES DAILY, First dose on 04/17/23 at 0900, Until Discontinued, Routine 31 (Given - Provider: Chilo Nickerson RN)2010 (Given [...] RN) 09 (Given - Provider: China Myers) topiramate (Topamax) [...] documented as of this encounter Care Teams Hospital Insurance Clerk Relationship Specialty Start Date End Date Polo Pearce PA [address] [place] [address] PCP - General Internal Medicine 06/09/21 documented as of this encounter
--- OUTSIDE RECORDS SUMMARY | 2024-01-24 12:35 | XMS_ITS | Encounter Summary ---
[place] [address] Care Team Providers Care Master Carpenter Name Role Phone Polo Pearce Primary Care Provider [phone] Reason for Visit * Diagnostic Test (Routine) - Closed Specialty Diagnoses / Procedures Referred By Jayant harris Referred To Contact Radiology Diagnoses Chest pain, unspecified type Procedures NM PET CT Cardiac Sarcoid Maegan Mike [facility] [place] [address] [place] [address] Referral ID Status Reason Start Date Expiration Date V isits Requested Visits Authorized [id number] Closed Specialty Service Requested 04/22/2023 10/20/2024 4 4 Encounter Details Date Type Department Care Team (Latest Contact Info) Description 04/30/2023 11:05 AM EST - 04/30/2023 11:59 PM EST Hospital Encounter [place] [address] Maegan Mike [facility] [place] [address] Discharge Disposition: Home Social History [...] by mouth nightly. empagliflozin (Jardiance) 10 mg TabletIndications:Dissolver Operator neal heart failure with preserved ejection fraction Take 1 tablet by mouth daily. 90 tablet 1 06/11/2021 rOPINIRole (Requip) 1 mg Tablet Take 2 mg by mouth 2 times daily. 07/16/2020 loratadine (Claritin) 10 mg Tablet Take 10 mg by mouth daily as needed. fluticasone propionate (FLONASE) 50 mcg/actuation [place], Suspension 1 spray by Each Nare route [...] 1:00 PM EST Office Visit Cardiology at [address] [address] Jaspreet Kinsey MD [facility] [place] [address] documented as of this encounter Procedures Procedure [...] questions please contact the health director of primary care that requested your imaging first. ? 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 Following IV administration of 26.5 mCi technetium 99m sestamibi, SPECT-CT of the heart was obtained. Following IV injection of 8.8 mCi 85-vtqedp-7-deoxyglucose (FDG) and a standard uptake of approximately [...] obtained. Following IV injection of 8.8 mCi 08-dlvxhj-9-deoxyglucose (FDG) and astandard uptake of approximately 60 [...] have questions please contactthe health director of primary care that requested your imaging first. Electronically signed by: Humberto Qureshi MD, [facility]([phone]), at 05/06/2023 11:09 AM Maegan Mike CAREER TECHNOLOGY TEACHER IMG PET ORDERABLE S documented in this encounter Visit Diagnoses Not on filedocumented in this encounter Care Teams Master Carpenter Relationship Specialty Start Date End Date Polo Pearce PA [address] [place] [address] PCP - General Internal Medicine 06/09/21 documented as of this encounter
--- OUTSIDE RECORDS SUMMARY | 2024-01-24 12:35 | XMS_ITS | Encounter Summary ---
Author Organization [facility] [place] [address] Care Team Providers Care Inspector Plug Seam Name Role Phone Polo Pearce Primary Care Provider [phone] Encounter Details Date Type Department Care Team (Late st Contact Info) Description 05/28/2023 Telephone Cardiology at [address] [address] Jaspreet Kinsey MD [facility] [place] [address] Social History Tobacco Use Types Packs/Day Years Used Date Smoking Tobacco: Never Smokeless Tobacco: Never Alcohol Use Standard Drinks/Week Comments Never 0 (1 standard drink = 0.6 oz pur e alcohol) [facility] Utilities Answer Date Recorded In the past 12 months has e too.me, gas, oil, or water [email or web address] threatened to shut off services in your [...] has gone up. Please call her @ [phone] * Telephone Encounter - Nilda Mayes RN - 06/04/2023 9:41 AM EDT Next office visit is scheduled Date Visit Type Department Provider 09/22/2023 3:00 PM FOLLOW UP VISIT Cardiology at [place] [facility] at: [facility] [address] Kinsey * Telephone Encounter - Aide Glass - 05/28/2023 10:53 AM EDT Patient had labs done recently. She would like to know what Dr Kinsey thinks about them and what if anything she should be doing. Please call her @ [phone] . documented in this encounter Plan of Treatment Upcoming Encounters Date Type Department Care Team (Late st Contact Info) Description 02/10/2024 1:00 PM EST Office Visit Cardiology at [address] [place] [address] Jaspreet Kinsey MD [facility] [place] [address] documented as of this encounter Visit Diagnoses Not on filedocumented in this encounter Care Teams Inspector Plug Seam Relationship Specialty Start Date End Date Polo Pearce PA [address] [place] [address] PCP - General Internal Medicine 06/09/21 documented as of this encounter
--- OUTSIDE RECORDS SUMMARY | 2024-01-24 12:35 | XMS_ITS | Encounter Summary ---
Author Organization [facility] Address [facility] [place] [address] Care Team Providers Care Digital Marketing Assistant Name Role Phone Polo Pearce Primary Care Provider [phone] Encounter Details Date Type Department Care Team [...] th e electric, gas, oil, or water [email or web address] threatened to shut off services in your [...] PM EST Office Visit Cardiology at [address] [place] [address] Jaspreet Kinsey MD [facility] [place] [address] documented as of this encounter Visit Diagnoses Not on filedocumented in this encounter Care Teams Digital Marketing Assistant Relationship Specialty Start Date End Date Polo Pearce PA [address] [place] [address] PCP - General Internal Medicine 06/09/21 documented as of this encounter
--- OUTSIDE RECORDS SUMMARY | 2024-01-24 12:35 | XMS_ITS | Encounter Summary ---
[place] [address] Care Team Providers Care Manager Six Sigma Name Role Phone Polo Pearce Primary Care Provider [phone] Reason for Visit * Diagnostic Test (Routine) - Closed Specialty Diagnoses / Procedures Referred By Jayant harris Referred To Contact Radiology Diagnoses Chest pain, unspecified type Procedures NM PET CT Cardiac Sarcoid Maegan Mike [facility] [place] [address] [place] [address] Referral ID Status Reason Start Date Expiration Date V isits Requested Visits Authorized [id number] Closed Specialty Service Requested 04/22/2023 10/20/2024 4 4 Encounter Details Date Type Department Care Team (Latest Contact Info) Description 04/30/2023 11:05 AM EST Hospital En[place] [address] Maegan Mike [facility] [place] [address] Discharge Disposition: Home Social History [...] by mouth nightly. empagliflozin (Jardiance) 10 mg TabletIndications:Position Classification Manager neal heart failure with preserved ejection fraction Take 1 tablet by mouth daily. 90 tablet 1 06/11/2021 rOPINIRole (Requip) 1 mg Tablet Take 2 mg by mouth 2 times daily. 07/16/2020 loratadine (Claritin) 10 mg Tablet Take 10 mg by mouth daily as needed. fluticasone propionate (FLONASE) 50 mcg/actuation [place], Suspension 1 spray by Each Nare route [...] 1:00 PM EST Office Visit Cardiology at [address] [place] [address] Jaspreet Kinsey MD [facility] [place] [address] documented as of this encounter Procedures Procedure [...] documented in this encounter Care Teams Manager Six Sigma Relationship Specialty Start Date End Date Polo Pearce PA [address] [place] [address] PCP - General Internal Medicine 06/09/21 documented as of this encounter
--- OUTSIDE RECORDS SUMMARY | 2024-01-24 12:35 | XMS_ITS | Encounter Summary ---
[place] [address] Care Team Providers Care Sharepoint Analyst Name Role Phone Polo Pearce Primary Care Provider [phone] Reason for Visit * Auth/Cert (Routine) Specialty Diagnoses / Procedures Referred By Contjulita t Referred To Contact Diagnoses NSTEMI (non-ST elevated myocardial infarction) NSTEMI Procedures ER Lloyd Pantoja MD [facility] [place] [address] [facility] Referral ID Status Reason Start Date Expiration Date Visits Re quested Visits Authorized [id number] 1 1 Encounter Details Date Type Department Care Team (Latest Contact Info) Description 07/02/2023 10:10 AM EDT - 07/02/2023 11:59 PM EDT Hospital [place] [address] Discharge Disposition: Home Social History Tobacco Use Types Packs/Day Years Used Date Smoking Tobacco: Never Smokeless Tobacco: Never Alcohol Use Standard Drinks/Week Comments Never 0 (1 standard drink = 0.6 oz pur e alcohol) [facility] Utilities Answer Date Recorded In the past 12 months has [employer] electric, gas, oil, or water company threatened [...] as needed. fluticasone propionate (FLONASE) 50 mcg/actuation [place], Suspension 1 spray by Each Nare route [...] ordered. Henrietta Judge MD Vascular Surgery Pager: [phone] 07/02/23 ASA: 3 Mal: 3 Cr: Lab Results Component Value Date CREATININE 1.21 (H) 07/02/2023 * Deborah Ely RN - 07/02/2023 10:56 AM EDT [facility] Name: Indira Roque Date of : 1970 AGE: 53 y.o. [facility] [address] (home) [phone] (work) Mobile: Telephone Information: Referring Provider: Pat [...] groin Right Groin Closure device used: Pro Dawson Time sheath removed: 13:12 Time of hemostasis: [...] of : 1970 AGE: 53 y.o. Address: [facility] [facility] [address] (home) [phone] (work) Mobile: Telephone Information: Referring Provider: Pat [...] PM EST Office Visit Cardiology at [address] [phone] Jaspreet Kinsey MD [facility] [place] [address] documented as of this encounter Procedures Procedure [...] mg documented in this encounter Care Teams Sharepoint Analyst Relationship Specialty Start Date End Date Polo Pearce PA [address] [place] [address] PCP - General Internal Medicine 06/09/21 documented as of this encounter
--- OUTSIDE RECORDS SUMMARY | 2024-01-24 12:35 | XMS_ITS | Encounter Summary ---
Author Organization [facility] [address] Care Team Providers Care Neuropsychology Division Chief Name Role Phone Polo Pearce Primary Care Provider [phone] Reason for Referral * Consultation (Routine) - Closed Specialty Diagnoses / Procedures Referred By Contac t Referred To Contact Cardiology Diagnoses Heart failure with preserved ejection fraction, unspecified HF chronicity [place]. thorough evaluation performed to date. Jaspreet Kinsey MD [facility] [place] [address] Porsha Mcdaniels MD [facility] [place] [address] Referral ID Status Reason Start Date Expiration Date V isits Requested Visits Authorized [id number] Closed Consult, Test & Treat 06/09/2023 06/08/2024 1 1 Encounter Details Date Type Department Care Team (Late st Contact Info) Description 06/09/2023 Telephone Cardiology at [address] [address] Jaspreet Kinsey MD [facility] [place] [address] Social History Tobacco Use Types [...] Telephone Encounter - Nilda Mayes RN - 06/09/2023 10:55 AM EDT Call to Indira with Dr Storms' assessment and recommendations. * Telephone Encounter - Jaspreet Kinsey MD - 06/09/2023 9:57 AM EDT Labs reviewed; all were unremarkable. If she's having a good response to torsemide and keeping on low sodium diet, unsure how she would be gaining fluid. Will send prescription for metolazone to take PRN weight gain to the pharmacy. Roland placed referral to cardiology at [facility] for further evaluation of what is termed [...] PM EST Office Visit Cardiology at [address] [place] [address] Jaspreet Kinsey MD [facility] [place] [address] Scheduled Referrals Name Type Priority Associated Diagnoses Orde r Schedule Referral to Cardiology Outpatient Referral Routine Heart failure with preserved ejection fraction, unspecified HF chronicity Ordered: 06/09/2023 documented as of this encounter Visit Diagnoses Diagnosis Heart failure with preserved ejection fraction, unspecified HF chronicity documented in this encounter Care Teams Neuropsychology Division Chief Relationship Specialty Start Date End Date Polo Pearce PA [address] [facility] [address] [place] [address] PCP - General Internal Medicine 06/09/21 documented as of this encounter
--- OUTSIDE RECORDS SUMMARY | 2024-01-24 12:35 | XMS_ITS | Encounter Summary ---
[place] [address] Care Team Providers Care Adoption Manager Name Role Phone Polo Pearce Primary Care Provider [phone] Reason for Referral * Diagnostic Test (Routine) - Closed Specialty Diagnoses / Procedures Referred By Contac t Referred To Contact Radiology Diagnoses Chest pain, unspecified type Procedures NM PET CT Cardiac Sarcoid Maegan Mike APRN [facility] [place] [address] [place] [address] Referral ID Status Reason Start Date Expiration Date V isits Requested Visits Authorized [id number] Closed Specialty Service Requested 04/22/2023 10/20/2024 4 4 Reason for Visit * Diagnostic Test (Routine) - Closed Specialty Diagnoses / Procedures Referred By Contac t Referred To Contact Radiology Diagnoses Chest pain, unspecified type Procedures NM PET CT Cardiac Sarcoid Maegan Mike APRN [facility] [place] [address] [place] [address] Referral ID Status Reason Start Date Expiration Date V isits Requested Visits Authorized [id number] Closed Specialty Service Requested 04/22/2023 10/20/2024 4 4 Encounter Details Date Type Department Care Team (Latest Contact Info) Description 04/30/2023 11:01 AM EST Hospital Encounter [place] [phone] Maegan Mike, [facility] [place] [address] Chest pain, unspecified type Discharge Disposition: Home Social History Tobacco Use Types Packs/Day Years Used Date Smoking Tobacco: Never Smokeless Tobacco: Never Alcohol Use Standard Drinks/Week Comments Never 0 (1 standard drink = 0.6 oz pur e alcohol) [facility] Utilities Answer Date Recorded In the past 12 months has th e [employer], gas, oil, or water [employer] threatened to shut off services in your [...] by mouth nightly. empagliflozin (Jardiance) 10 mg TabletIndications:Gas Well Drilling Manager neal heart failure with preserved ejection fraction Take 1 tablet by mouth daily. 90 tablet 1 06/11/2021 rOPINIRole (Requip) 1 mg Tablet Take 2 mg by mouth 2 times daily. 07/16/2020 loratadine (Claritin) 10 mg Tablet Take 10 mg by mouth daily as needed. fluticasone propionate (FLONASE) 50 mcg/actuation [place], Suspension 1 spray by Each Nare route [...] PM EST Office Visit Cardiology at [address] [place] [address] Jaspreet Kinsey MD [facility] [place] [address] documented as of this encounter Procedures Procedure [...] have questions please contact the health healthcare network pricing consultant that requested your imaging first. ? 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 Following IV administration of 26.5 mCi technetium 99m sestamibi, SPECT-CT of the heart was obtained. Following IV injection of 8.8 mCi 62-bumhku-1-deoxyglucose (FDG) and a standard uptake of approximately [...] obtained. Following IV injection of 8.8 mCi 43-dubebr-5-deoxyglucose (FDG) and astandard uptake of approximately 60 [...] who have questions please contactthe health healthcare network pricing consultant that requested your imaging first. Electronically signed by: Humberto Qureshi MD, [facility]([phone]), at 05/06/2023 11:09 AM Maegan Mike CODING ASSISTANT IMG PET ORDERABLE S * POCT Glucose (04/30/2023 12:19 PM EST) Glucose, POC 79 65 - 199 mg/dL [facility] Comment: Supplemental ranges: <140 mg/dL before meals <180 mg/dL all other times of the day Blood 04/30/2023 12:1 9 PM EST 04/30/2023 12:19 PM EST Maegan Mike CODING ASSISTANT POINT OF CARE [place] [address] documented in this encounter Visit Diagnoses Diagnosis [...] Arm documented in this encounter Care Teams Adoption Manager Relationship Specialty Start Date End Date Polo Pearce PA [address] [place] [address] PCP - General Internal Medicine 06/09/21 documented as of this encounter
--- OUTSIDE RECORDS SUMMARY | 2024-01-24 12:35 | XMS_ITS | Encounter Summary ---
Author Organization [facility] Address [address] [facility] [place] [address] Care Team Providers Care Press Operator Carbon Blocks Name Role Phone Polo Pearce Primary Care Provider [phone] Encounter Details Date Type Department Care Team [...] PM EST Office Visit Cardiology at [address] [place] [address] Jaspreet Kinsey MD [facility] [place] [address] documented as of this encounter Visit Diagnoses Not on filedocumented in this encounter Care Teams Press Operator Carbon Blocks Relationship Specialty Start Date End Date Polo Pearce PA [address] [place] [address] PCP - General Internal Medicine 06/09/21 documented as of this encounter
--- OUTSIDE RECORDS SUMMARY | 2024-01-24 12:35 | XMS_ITS | Encounter Summary ---
Author Organization [facility] Address [facility] [place] [address] Care Team Providers Care Hand Meat Salter Name Role Phone Polo Pearce Primary Care Provider [phone] Reason for Visit * Reason Comments Cardiomyopathy Encounter Details Date Type Department Care Team (Late st Contact Info) Description 05/10/2023 2:40 PM EST Office Visit Cardiology at [address] [address] Jaspreet Kinsey MD [facility] [place] [address] Heart failure with preserved ejection fraction, unspecified [...] Oral, DAILY fluticasone propionate (FLONASE) 50 mcg/actuation [place], Suspension 1 spray, Each Nare, PRN gabapentin [...] preserved ejection fraction 05/2021: subacute, presented to [facility] with RUQ pain, weight gain, and [...] referral to the good Dr Mcdaniels of [facility] expertise IN the meantime, increase torsemide to [...] referral to the good Dr Mcdaniels of [facility] expertise IN the meantime, increase torsemide to 40 BID. - KATHRINE - ASO - Lyme Ab's - SPEP, FLC - iron, tibc, ferritin documented in this encounter Plan of Treatment Upcoming Encounters Date Type Department Care Team (Late st Contact Info) Description 02/10/2024 1:00 PM EST Office Visit Cardiology at [address] [place] [address] Jaspreet Kinsey MD [facility] [place] [address] documented as of this encounter Results * Streptococcal Antibody Panel (08/25/2023 11:28 AM EDT) [facility] Aso Titer (JULY) 25 0 - 530 IU/mL [facility] Comment: Test Performed by: [facility] [place] [address] Cpc Coder: Nellie Haney Ph.D.; CLIA# [id number] Dnase B Ab (JULY) 146 0 - 300 unit/mL [facility] Comment: Test Performed by: [facility] [place] [address] Cpc Coder: Nellie Haney Ph.D.; CLIA# [id number] Blood 08/25/2023 11:2 8 AM EDT 08/25/2023 1:02 PM EDT Narrative Resulting Agency Comment Spec In Lab Jaspreet Kinsey MD LAB SEND OUT ORDERAB LES [facility] [place] [address] * Lyme IgG & IgM Antibody (08/25/2023 11:28 AM EDT) [facility] Lyme Antibody Negative Negative [facility] Lyme Ab Comment Negative result does not exclude possibility of infection. [facility] Comment: Please note that as of 07/14/2022 that this testing is performed by the Special Chemistry Laboratory at [facility]. This change in testing location is associated with a change in testing methodology. Blood 08/25/2023 11:2 8 AM EDT 08/26/2023 7:26 AM EDT Narrative Resulting Agency Comment Spec In Lab Jaspreet Kinsey MD IMMUNOLOGY ORDERABLE S [facility] [place] [address] * Ferritin (08/25/2023 11:28 AM EDT) [facility] Ferritin 110 11 - 328 ng/mL [facility] Comment: Please note that as of 02/10/2023, the reference intervals for Ferritin have been updated. Blood 08/25/2023 11:2 8 AM EDT 08/25/2023 11:37 AM EDT Narrative Resulting Agency Comment Spec In Lab Jaspreet Kinsey MD CHEMISTRY ORDERABLES Performing Organization Address [facility]/ZIP Co de Phone Number [facility] [place] [address] * Iron and TIBC (08/25/2023 11:28 AM EDT) [facility] Iron 113 30 - 150 mcg/dL [facility] TIBC 338 250 - 450 mcg/dL [facility] Iron Saturation 33 20 - 50 % [facility] Blood 08/25/2023 11:2 8 AM EDT 08/25/2023 11:36 AM EDT Narrative Resulting Agency Comment Spec In Lab Jaspreet Kinsey MD CHEMISTRY ORDERABLES Performing Organization Address City/[facility]/ZIP Co de Phone Number [facility] [place] [address] * (ABNORMAL) Free Light Chains, Serum (08/25/2023 11:28 AM EDT) [place] Free Light Chain 3.09(H) 0.72 - 2.75 mg/dL [facility] Lambda Free Light Chain 1.65 0.57 - 2.15 mg/dL [facility] [place]/Lambda FLC Ratio 1.8727 0.4000 - 2.5800 [facility] Blood 08/25/2023 11:2 8 AM EDT 08/25/2023 11:36 AM EDT Narrative Resulting Agency Comment Spec In Lab Jaspreet Kinsey MD CHEMISTRY ORDERABLES Performing Organization Address City/[facility]/ZIP Co de Phone Number [facility] [place] [address] * (ABNORMAL) Protein Electrophoresis, serum (08/25/2023 11:28 AM EDT) Pathologist [facility] Total Prot Electrophoresis 7.5 6.1 - 8.0 g/dL [facility] Albumin Electrophoresis 4.62 3.20 - 5.20 g/dL [facility] Alpha 1 Globulin 0.20 0.10 - 0.30 g/dL [facility] Alpha 2 Globulin 0.92(H) 0.40 - 0.90 g/dL [facility] Beta Globulin 0.89 0.50 - 1.00 g/dL [facility] Gamma Globulin 0.88 0.50 - 1.30 g/dL [facility] M1 Band None Detected None Detected [facility] Blood 08/25/2023 11:2 8 AM EDT 08/25/2023 11:37 AM EDT Narrative Resulting Agency Comment Spec In Lab Jaspreet Kinsey MD CHEMISTRY ORDERABLES [facility] [place] [address] * KATHRINE Antibody Screen (08/25/2023 11:28 AM EDT) KATHRINE Ab Screen Negative Negative [facility] Comment: This antinuclear antibody (KATHRINE) screen is a qualitative test performed using a fluoroenzyme immunoassay on the IPTEGOdia 250 analyzer. This screen is designed to [...] generated using a fluoroenzyme immunoassay on the IPTEGOdia 250 analyzer. This quantitative test is designed to detect IgG antibodies directed against double stranded DNA in human serum. The presence of antibodies that recognize dsDNA is a highly specific marker for systemic lupus erythematosus. Please note that as of 12/30/2021 that this testing is performed by the Special Chemistry Laboratory at [facility]. This change in testing location is associated with a change is testing method and reference intervals. Please review the results of this test in association with the posted reference intervals. Blood 08/25/2023 11:2 8 AM EDT 08/26/2023 7:26 AM EDT Narrative Resulting Agency Comment Spec In Lab Jaspreet Kinsey MD LAB SEND OUT ORDERAB LES [facility] [place] [address] documented in this encounter Visit Diagnoses Diagnosis Heart failure with preserved ejection fraction, unspecified HF chronicity- Primary SVT (supraventricular tachycardia) Other specified cardiac dysrhythmias documented in this encounter Care Teams Hand Meat Salter Relationship Specialty Start Date End Date Polo Pearce PA [address] [place] [address] PCP - General Internal Medicine 06/09/21 documented as of this encounter
--- OUTSIDE RECORDS SUMMARY | 2024-01-24 12:35 | XMS_ITS | Encounter Summary ---
[place] [address] Care Team Providers Care Library Technical Assistant Name Role Phone Polo Pearce Primary Care Provider [phone] Reason for Visit * Diagnostic Test (Routine) - Closed Specialty Diagnoses / Procedures Referred By Jayant harris Referred To Contact Radiology Diagnoses Chest pain, unspecified type Procedures NM PET CT Cardiac Sarcoid Maegan Mike [facility] [place] [address] [place] [address] Referral ID Status Reason Start Date Expiration Date V isits Requested Visits Authorized [id number] Closed Specialty Service Requested 04/22/2023 10/20/2024 4 4 Encounter Details Date Type Department Care Team (Latest Contact Info) Description 04/30/2023 11:02 AM EST - 04/30/2023 11:04 AM EST Hospital Encounter [place] [address] Maegan Mike [facility] [place] [address] Discharge Disposition: Home Social History Tobacco Use Types Packs/Day Years Used Date Smoking Tobacco: Never Smokeless Tobacco: Never Alcohol Use Standard Drinks/Week Comments Never 0 (1 standard drink = 0.6 oz pur e alcohol) [facility] Utilities Answer Date Recorded In [...] mouth nightly. 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 90 tablet 1 06/11/2021 rOPINIRole (Requip) 1 mg Tablet Take 2 mg by mouth 2 times daily. 07/16/2020 loratadine (Claritin) 10 mg Tablet Take 10 mg by mouth daily as needed. fluticasone propionate (FLONASE) 50 mcg/actuation [place], Suspension 1 spray by Each Nare route [...] PM EST Office Visit Cardiology at [address] [address] Jaspreet Kinsey MD [facility] [place] [address] documented as of this encounter Procedures Procedure [...] who have questions please contact the health women's health care nurse practitioner that requested your imaging first. ? 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 Following IV administration of 26.5 mCi technetium 99m sestamibi, SPECT-CT of the heart was obtained. Following IV injection of 8.8 mCi 61-orgwpc-7-deoxyglucose (FDG) and a standard uptake of approximately [...] obtained. Following IV injection of 8.8 mCi 21-fmnecj-8-deoxyglucose (FDG) and astandard uptake of approximately 60 [...] patients who have questions please contactthe health women's health care nurse practitioner that requested your imaging first. 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
--- OUTSIDE RECORDS SUMMARY | 2024-01-24 12:35 | XMS_ITS | Encounter Summary ---
Author Organization [facility] Address [address] [facility] [place] [address] Care Team Providers Care Bariatric Surgeon Name Role Phone Polo Pearce Primary Care Provider [phone] Encounter Details Date Type Department Care Team (Latest Contact Info) Description 04/30/2023 Travel Social History Tobacco Use Types Packs/Day Years Used Date Smoking Tobacco: Never Smokeless Tobacco: Never Alcohol Use Standard Drinks/Week Comments Never 0 (1 standard drink = 0.6 oz pur e alcohol) [facility] Utilities Answer Date Recorded In the [...] 1:00 PM EST Office Visit Cardiology at [address] [place] [address] Jaspreet Kinsey MD [facility] [place] [place] [address] documented as of this encounter Visit Diagnoses Not on filedocumented in this encounter Care Teams Bariatric Surgeon Relationship Specialty Start Date End Date Polo Pearce PA [address] [place] [address] PCP - General Internal Medicine 06/09/21 documented as of this encounter
--- OUTSIDE RECORDS SUMMARY | 2024-01-24 12:35 | XMS_ITS | Encounter Summary ---
Author Organization [facility] [place] [address] Care Team Providers Care Embroidery Operator Name Role Phone Polo Pearce Primary Care Provider [phone] Encounter Details Date Type Department Care Team (Late st Contact Info) Description 06/14/2023 Telephone Cardiology at [address] [phone] Sarah Kahn, SENIOR ORACLE SOA DEVELOPER [facility] [place] [address] Social History Tobacco Use Types Packs/Day Years Used Date Smoking Tobacco: Never Smokeless Tobacco: Never Alcohol Use Standard Drinks/Week Comments Never 0 (1 standard drink = 0.6 oz pur e alcohol) [facility] Utilities Answer Date Recorded In the past 12 months has e [employer], gas, oil, or water [employer] threatened to shut off services in your [...] AM Referring Provider: Dr. Iyer Patient Location: [facility] Past Medical History: Mild, nonobstructive CAD, s/p [facility] 04/2023 for similar presentation SVT [...] showed no evidence of inflammation/sarcoid. Troponin at [facility] at the time of her event [...] or examined this patient. Sarah Kahn, MICHELL, DENTAL INTERN-BC, SENIOR ORACLE SOA DEVELOPER [facility] Cardiovascular Medicine documented in this encounter Plan of Treatment Upcoming Encounters Date Type Department Care Team (Late st Contact Info) Description 02/10/2024 1:00 PM EST Office Visit Cardiology at [address] [phone] Jaspreet Kinsey MD [facility] [address] documented as of this encounter Visit Diagnoses Not on filedocumented in this encounter Care Teams Embroidery Operator Relationship Specialty Start Date End Date Polo Pearce PA Sb [address] [facility] [address] [place] [address] PCP - General Internal Medicine 06/09/21 documented as of this encounter
--- OUTSIDE RECORDS SUMMARY | 2024-01-24 12:35 | XMS_ITS | Encounter Summary ---
[place] [address] Care Team Providers Care Development Consultant Name Role Phone Polo Pearce Primary Care Provider [phone] Reason for Referral * Diagnostic Test (Routine) - Closed Specialty Diagnoses / Procedures Referred By Jayant t Referred To Contact Diagnoses Mesenteric ischemia Procedures Duplex Study Visceral Arteries, Comp Mamie Marx CRATE MAKER [facility] [place] [address] [facility] [address] [place] [phone] Referral ID Status Reason Start Date Expiration Date V isits Requested Visits Authorized [id number] Closed Specialty Service Requested 06/28/2023 06/27/2024 1 1 Encounter Details Date Type Department Care Team (Late st Contact Info) Description 06/28/2023 Orders Only Vascular Surgery at [address] [phone] Mamie Marx APRN [facility] [place] [address] Mesenteric ischemia Social History Tobacco Use Types [...] PM EST Office Visit Cardiology at [address] [place] [phone] Jaspreet Kinsey MD [facility] [place] [address] documented as of this encounter Results * Duplex Study Visceral Arteries, Comp (08/03/2023 8:36 AM EDT) VB Text Report Department: Vascular Surgery Lab Patient: [id number] (LOIDA ROQUE) CPT: [id number] Referring Physician: MAMIE MARX ?? Phone: Indications: S/p SMA stenting (07/01) one month f/u, ? patency Findings: Unilateral ? Waveform ? PSV cm/s ??EDV cm/s ??Patent ?? Dary Visceral Aorta ? 71 ?14 ? Celiac Artery, Proximal ??[place]-Biphasic ? 100 ?22 ? Celiac Artery, Mid ? [place]-Biphasic ?99 ?19 ? Celiac Artery, Distal ?[place]-Biphasic ?94 ?18 ? Sup Mes Artery Proximal [...] within mesenteric artery stents may differ from [place] arteries, with thresholds for diagnosis of significant stenosis likely being somewhat higher in stented arteries than [place]a'[place]ut.% To date, there is no evidence based consensus of stent velocity criteria. Therefore, the current interpretation is based on [place] artery thresholds. Previous Celiac/Mesenteric Studies: Date ? [...] intestine documented in this encounter Care Teams Development Consultant Relationship Specialty Start Date End Date Polo Pearce PA S[address] [place] [address] PCP - General Internal Medicine 06/09/21 documented as of this encounter
--- OUTSIDE RECORDS SUMMARY | 2024-01-24 12:36 | XMS_ITS | Encounter Summary ---
Author Organization [facility] Address [address] [facility] [place] [address] Care Team Providers Care Ladies' Locker Room Attendant Name Role Phone Polo Pearce Primary Care Provider [phone] Encounter Details Date Type Department Care Team [...] PM EST Office Visit Cardiology at [address] [place] [phone] Jaspreet Kinsey MD [facility] [place] [address] documented as of this encounter Visit Diagnoses Not on filedocumented in this encounter Care Teams Ladies' Locker Room Attendant Relationship Specialty Start Date End Date Polo Pearce PA [address] [place] [id number] PCP - General Internal Medicine 06/09/21 documented as of this encounter
--- OUTSIDE RECORDS SUMMARY | 2024-01-24 12:36 | XMS_ITS | Encounter Summary ---
Author Organization [facility] [place] [address] Care Team Providers Care Sewage Plant Supervisor Name Role Phone Polo Pearce Primary Care Provider [phone] Reason for Visit * Reason Onset Date Comments Follow-up 04/08/2023 Encounter Details Date Type Department Care Team (Late st Contact Info) Description 04/08/2023 Telephone Cardiology at [address] [phone] Mary Motta, RN Follow-up Social History Tobacco Use Types Packs/Day Years Used Date Smoking Tobacco: Never Smokeless Tobacco: Never Alcohol Use Standard Drinks/Week Comments Never 0 (1 standard drink = 0.6 oz pur e alcohol) [facility] Utilities Answer Date Recorded In the past 12 months has [employer], gas, oil, or water [employer] threatened to shut off services in your [...] 1:00 PM EST Office Visit Cardiology at [address] [place] [address] Jaspreet Kinsey MD [facility] [address] documented as of this encounter Visit Diagnoses Not on filedocumented in this encounter Care Teams Sewage Plant Supervisor Relationship Specialty Start Date End Date Polo Pearce PA [address] [place] [address] PCP - General Internal Medicine 06/09/21 documented as of this encounter
--- OUTSIDE RECORDS SUMMARY | 2024-01-24 12:36 | XMS_ITS | Encounter Summary ---
[place] [address] Care Team Providers Care Complaint Evaluation Supervisor Name Role Phone Polo Pearce Primary Care Provider [phone] Reason for Visit * Auth/Cert (Routine) Specialty Diagnoses / Procedures Referred By Contac t Referred To Contact Diagnoses NSTEMI (non-ST elevated myocardial infarction) NSTEMI Procedures ER Lloyd Pantoja MD [facility] [place] [address] [place] [address] [facility] Referral ID Status Reason Start Date Expiration Date Visits Re quested Visits Authorized [id number] 1 1 Encounter Details Date Type Department Care Team (Late st Contact Info) Description 04/18/2023 9:00 AM EST - 04/18/2023 10:04 AM EST Surgery [place] [address] Dustin Carrasco MD [facility] [place] [address] [place] [address] CARDIAC CATHETERIZATION Social History Tobacco Use Types Packs/Day Years Used Date Smoking Tobacco: Never Smokeless Tobacco: Never Alcohol Use Standard Drinks/Week Comments Never 0 (1 standard drink = 0.6 oz pur e alcohol) [facility] Utilities Answer Date Recorded In the past 12 months has th e electric, gas, oil, or water [employer] threatened to shut off services in [...] Loida Madrigal Patient Age: 53 y.o. Language: South African Admit date: 04/16/2023 Discharge date and time: [...] lung disease secondary to obesity transferred from [facility] for further evaluation of exertional chest pressure and breathlessness. Abnormal OSH troponin 500 and repeat HS Trop at [facility] peak 27 with flat trend and elevated [...] discharge Inpatient Provider Contact Information: Cardiovascular Medicine [phone] Discharge Diagnoses (Hospital Problems) and Secondary Diagnoses [...] motion has increased. CTA PE protocol at [facility]- no PE but showed small pericardial effusion and some GG opacities. History of Presentation: Loida Madrigal is a 53 y.o. with hx of paroxysmal A-fib (diagnosed on 10/20/2022), pulmonary emboli on Eliquis, HFpEF (EF of 59%), supraventricular tachycardia (AVNRT since 06/2021) s/p EPS and SVTablation on 04/01/[address] Tovar on [facility], restrictive lung disease secondary to obesity presents from [facility] with complains of chest discomfort that started overnight. The patient has been experiencing ongoing chest pain, prompting admission on 02/11/23 primarily due to concerns about a NSTEMI indicated by elevated troponin levels and EKG changes noted at OSH. However, the observed EKG changes remained largely consistent with previous recordings. Troponin levels at [facility] showed a plateau at 23 > 27. [...] again 10/15, improving with sublingua Nitro. At [facility] Vitals: HR 48, BP 115/42, O2 [...] #Acute on chronic HFpEF Patient presented to [facility] on 04/16 with chest pain responsive to SL NTG. Troponin ~500x2. Transferredto [facility] for further evaluation. Troponin at [facility] to [facility], 24>23 w/ repeat peak 27->26. She [...] days. Refills: 0 fluticasone propionate 50 mcg/actuation [place], Suspension Commonly known as: Flonase 1 spray [...] 9:40 AM Jaspreet Kinsey MD Cardiology at [place] Arrive at: [facility] [address] [phone] 09/21/2023 3:00 PM Jaspreet Kinsey MD Cardiology at [place] Arrive at: [facility] [address] [phone] Discharge References/Attachments None Greater than 30 minutes was spent on this discharge including documentation, rxmh-[id number]-[id number] time withthe patient, patient education, will call order clerk, coordination with pharmacy and other [...] away. Stay on the phone. The emergency nitroglycerin separator operator will tell you what to do. [...] of 8AM-5PM please call the Cardiology Clinic [phone] to speak with a nurse. All other hours please call the Hospital Revenue Stamper [phone] and ask to speak to the medicare compliance auditor on-call. Return to work: One week Follow up Appointments: Doctor Where Phone # Date Time PCP JOCY Franco [address] [place] [address] 04/28/2023 7:[address] Kinsey [facility] A 05/10/2023 9:40 AM * Attachments The following attachments cannot be sent through Care Everywhere. * Coronary Angiogram: Post-op (South African) documented in this encounter Medications at [...] by mouth nightly. empagliflozin (Jardiance) 10 mg TabletIndications:Dental Instrument Maker neal heart failure with preserved ejection fraction Take 1 tablet by mouth daily. 90 tablet 1 06/11/2021 rOPINIRole (Requip) 1 mg Tablet Take 2 mg by mouth 2 times daily. 07/16/2020 loratadine (Claritin) 10 mg Tablet Take 10 mg by mouth daily as needed. fluticasone propionate (FLONASE) 50 mcg/actuation [place], Suspension 1 spray by Each Nare route [...] reviewed with pt, pt wheeled to d/c [facility]. I agree with the information [...] note were not included. CARDIOLOGY APP1 - [facility] DAILY PROGRESS NOTE Page [phone] to reach a provider 28/09 Admit Date: [...] 93.0 93.6 91.1 92.5 Recent Labs 04/21/2333904/20/2331004/19/2323904/18/23 0210 04/17/23 0333 NA 138 139 139 [...] disease secondary to obesity who presented to [facility] on 04/16 with chest pain responsive to SL NTG. Troponin ~500x2. Transferred to [facility] for further evaluation. Troponin at [facility], 24>23. Reports exertional chest pressure and [...] Cardiopulmonary Resuscitation - Inpatient Disposition: Discharge Location: AM-[facility] Basic Mobility Raw Score: 24 PT: OT: PCP JOCY Franco [phone] Discussed with MD Kurt Ray PA-C APP1 pager [phone] 04/22/2023 CV HOSPITALIST ADDENDUM Date of Service: [...] 04/21/2023 6:10 PM EST CARDIOLOGY APP1 - [facility] DAILY PROGRESS NOTE Page [phone] to reach a provider 28/09 Admit Date: [...] 04/20/23 03104/19/23 0240 04/18/23 0210 04/17/23 0333 WBC 7.1 [...] 12 CRP <=4.9 mg/L <3.0 <3.0 OSH [facility] troponin ~500. Telemetry: I have personally [...] disease secondary to obesity who presented to [facility] on 04/16 with chest pain responsive to SL NTG. Troponin ~500x2. Transferred to [facility] for further evaluation. Troponin at [facility], 24>23. Reports exertional chest pressure and [...] occur Diet: Daily Healthy Menu Choices/Cardiac diet ([facility]-Diet) 2 GM NA DVT Prophylaxis: DOAC Code status: Attempt Cardiopulmonary Resuscitation - Inpatient Disposition: Discharge Location: AM-PAC Basic Mobility Raw Score: 22 PT: OT: PCP JOCY Franco [phone] * Eufemia Copeland MD - 04/20/2023 4:34 PM EST CARDIOLOGY APP1 - [facility] DAILY PROGRESS NOTE Page [phone] to reach a provider 28/09 Admit Date: [...] MCV 93.0 93.6 91.1 92.5 Recent Labs 04/20/2331004/19/2323904/18/2320904/17/23 0333 NA 139 139 143 141 CL [...] 12 CRP <=4.9 mg/L <3.0 <3.0 OSH [facility] troponin ~500. Telemetry: I have personally [...] disease secondary to obesity who presented to [facility] on 04/16 with chest pain responsive to SL NTG. Troponin ~500x2. Transferred to [facility] for further evaluation. Troponin at [facility], 24>23. Reports exertional chest pressure and [...] occur Diet: Daily Healthy Menu Choices/Cardiac diet ([facility]-Diet) 2 GM NA; 2000 mL FLUID DVT Prophylaxis: DOAC Code status: Attempt Cardiopulmonary Resuscitation - Inpatient Disposition: Discharge Location: AM-PAC Basic Mobility Raw Score: 24 PT: OT: PCP JOCY Franco [phone] * Carrol La PA - 04/19/2023 12:32 PM EST CARDIOLOGY APP1 - [facility] DAILY PROGRESS NOTE Page [phone] to reach a provider 28/09 Admit Date: [...] CREATININE 1.11 1.18 1.19 Coags Recent Labs 04/17/23332 INR [...] 12 CRP <=4.9 mg/L <3.0 <3.0 OSH [facility] troponin ~500. EKG: Sinus bradycardia, 47 bpm, PAC, possible left atrial enlargement, possible lateral infarct, QTc 511. Telemetry: I have personally reviewed and interpreted the telemetry from the last 24 hours. Resultsshow sinus bradycardia with HR 50s, PVCs, heart rate climbs to 70s with activity.. Imaging: [facility] 04/18/23 Conclusions: * Nonobstructive coronary artery [...] motion has increased. CTA PE protocol at [facility]- no PE but showed small pericardial [...] aortopathy. 4. No acute pulmonary findings. [facility] 06/09/2021-RA 4, PA 38/15 (24) PCWP 11, CO/CI 3.14/1.6. [facility] 08/30/2019-normal coronary arteries. Assessment & Plan: [...] disease secondary to obesity who presented to [facility] on 04/16 with chest pain responsive to SL NTG. Troponin ~500x2. Transferred to [facility] for further evaluation. Troponin at [facility], 24>23. Reports exertional chest pressure and [...] and no pericardial effusion. She underw ent [facility] on 04/18 which showed non-obstructive ASCVD. [...] continues. Diet: Daily Healthy Menu Choices/Cardiac diet ([facility]-Diet) 2 GM NA; 2000 mL FLUID DVT Prophylaxis: DOAC Code status: Attempt Cardiopulmonary Resuscitation - Inpatient Disposition: Discharge Location: AM-[facility] Basic Mobility Raw Score: 24 PT: OT: PCP JOCY Franco [phone] Discussed with MD Carrol Aly PA-C APP1 Pager: [phone] 04/19/2023 * Alex Lew RCP - 04/18/2023 [...] nocturnal use as tolerated ALEX LEW RCP * Kurt Silveira PA - 04/18/2023 8:27 AM EST Images from the original note were not included. CARDIOLOGY APP1 - [facility] DAILY PROGRESS NOTE Page [phone] to reach a provider 28/09 Admit Date: [...] breathlessness. Awaiting cardiac catheterization potentially today if Broadcast Operations Technician availability allows.She remains on ACS therapies. [...] 12 CRP <=4.9 mg/L <3.0 <3.0 OSH [facility] troponin ~500. EKG: Sinus bradycardia, 47 [...] motion has increased. CTA PE protocol at [facility]- no PE but showed small pericardial [...] aortopathy. 4. No acute pulmonary findings. [facility] 06/09/2021-RA 4, PA 38/15 (24) PCWP 11, CO/CI 3.14/1.6. [facility] 08/30/2019-normal coronary arteries. Assessment & Plan: [...] lung disease secondary to obesity presents from [facility] with complains of exertional [...] or NTG drip if ongoing chest pain -[facility] 04/18 depending on Broadcast Operations Technician availability. #Hx of pAfib #Hx of [...] Cardiopulmonary Resuscitation - Inpatient Disposition: Discharge Location: AM-[facility] Basic Mobility Raw Score: 24 PT: OT: PCP JOCY Franco [phone] Discussed with MD Kurt Sheppard PA-C APP1 pager [phone] 04/18/2023 * Kurt Silveira PA - 04/17/2023 7:15 AM EST Images from the original note were not included. CARDIOLOGY APP1 - [facility] DAILY PROGRESS NOTE Page [phone] to reach a provider 28/09 Admit Date: 04/16/2023 Encounter Date April 17, 2023 Anticipated Discharge Date: 04/20/2023 Hospital Day: 1 Active Hospital Problems Diagnosis NSTEMI (non-ST elevated myocardial infarction) Resolved Hospital Problems No resolved problems to display. 24 Hour Events/Subjective: NAEMARCO Chest discomfort improved following sublingual nitroglycerin. She [...] 12 CRP <=4.9 mg/L <3.0 <3.0 OSH [facility] troponin ~500. EKG: Sinus bradycardia, 47 [...] motion has increased. CTA PE protocol at [facility]- no PE but showed small pericardial [...] PA 38/15 (24) PCWP 11, CO/CI 3.14/1.6. [facility] 08/30/2019-normal coronary arteries. Assessment & Plan: Loida [...] lung disease secondary to obesity presents from [facility] with complains of exertional [...] or NTG drip if ongoing chest pain -[facility] 04/18 or 04/19 depending on Broadcast Operations Technician availability. #Hx of pAfib #Hx of AVNRT sp EPS and Ablation - hold eliquis. Last taken on 04/16/23 am. - Continue IV heparin. # Hx of PE- continue with IV heparin Diet: No diet orders on file DVT Prophylaxis: DOAC Code status: Attempt Cardiopulmonary Resuscitation - Inpatient Disposition: Discharge Location: AM-PAC Basic Mobility Raw Score: 14 PT: OT: PCP JOCY Franco [phone] Discussed with MD Kurt Sheppard PA-C APP1 pager [phone] 04/17/2023 documented in this encounter H&P Notes [...] SVTablation on 04/01/[address] Tovar on [facility], restrictive lung disease secondary to obesity presents from [facility] with complains of chest discomfort that started overnight. The patient has been experiencing ongoing chest pain, prompting admission on 02/11/23 primarily due to concerns about a NSTEMI indicated by elevated troponin levels and EKG changes noted at OSH. However, the observed EKG changes remained largely consistent with previous recordings. Troponin levels at [facility] showed a plateau at 23 > 27. [...] again 10/15, improving with sublingua Nitro. 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 fluticasone propionate (FLONASE) 50 mcg/actuation [place], Suspension 1 spray by Each Nare route [...] SVTablation on 04/01/[address] Tovar on [facility], restrictive lung disease secondary to obesity presents from [facility] with complains of chest [...] if hypotensive / cardiogenic shock / inferior [place] / sildenafil within past 24 hours) - [...] (see comments), grab bar - tub/shower (CPAP [facility]) DME Needed at Discharge: N/A Patient is insured through: Primary Insurance: [employer] [place]ELD [place] Payor: [employer] [place] / Plan: [place] / Product Type: *No Product type* / Secondary Insurance: N/A Prescription Coverage: Yes This plan was formulated with input from patient and team. All are in agreement with plan. * Consult Note - Maegan Mike APRN - 04/22/2023 10:38 AM EST Images from the original note were not included. [facility] [place] [address] INPATIENT CARDIOLOGY CONSULT PROGRESS NOTE Interval events: [...] further insights. Discussed with MD Maegan De Leon APRN Pager [phone] 04/22/2023 Associated attestation - Jaspreet Kinsey MD [...] Tatum MSW - 04/20/2023 2:22 PM EST CHIEF PHARMACIST received a consult to support patient with financial concerns. CHIEF PHARMACIST met with patient and introduced self. Patient stated due to hospitalization, she has been out of work and feeling stress around not being able to pay bills. I have a car payment and other bills and it's like I have to choose which one to pay and which one not to pay. CHIEF PHARMACIST validated patient's stress around financial concerns. CHIEF PHARMACIST asked patient if she has applied for [employer] or any other state benefits. Patient stated that she has, but is over the household income criteria to qualify for benefits. Patient shared that she owns her home outright and mainly concerned about making her car payment and transportation home. MSWstated that care management will help arrange for a ride, if needed. CHIEF PHARMACIST provided patient with community resources such as the [facility] Food Directory, the [facility] Community Action phone number, and the [facility] [place] on Aging contact info. CHIEF PHARMACIST available to support patient should anything else [...] Admitted From: Transfer from another hospital Location: [facility] Reason for Hospitalization: chest pain and cough Covid Vaccination Status: 1st, 2nd & booster Last COVID test: Lab Results Component Value Date [id number] Not Detected 06/13/2021 Past medical History: Past [...] shut off services in your home?: Yes ([employer] is currently threatening to shut off [...] (see comments), grab bar - tub/shower (CP[facility]) Home Address confirmed as: [address] [address] Social & Family Supports: All names listed [...] Specific Information: N/A Health/Prescription Coverage: Primary Insurance: [employer] [place] Payor: [employer] [place] / Plan: [place]ANGE / Product Type: *No Product type* / Secondary Insurance: N/A ; Prescription Coverage: Yes Preferred Pharmacy: [facility] - [place], [place] - [address] [address] [facility] - [place], [place] - [address] [facility] [address] [place] Status: Patient is a : No Primary Care Provider confirmed: JOCY Franco [phone] Patient/Caregiver Goals of Treatment: home w / family when MR Potential Needs for Transition of Care: other (see comments) (CHIEF PHARMACIST support; pt's spouse was denied twice for [...] Concerns to be Addressed: financial/insurance, discharge planning; CHIEF PHARMACIST consult placed to discuss available resources Assessment: Patient is admitted to [facility] service for NSTEMI Plan: pending clinical course, but likely home w/o services when MR A member of the Care Management team will continue to monitor progress, follow for continuity of care and assist with transition of care planning. * Consult Note - Otis Rader MD - 04/19/2023 10:00 AM EST Images from the original note were not included. [facility] [place] [address] INPATIENT CARDIOLOGY CONSULT NOTE Reason for Consult: [...] ACS with DAPT and heparin prior to [facility] 04/18, which was negative for any [...] PA-C 04/18/2023 * Plan of Care - aMlia Mcintyre RN - 04/18/2023 1:47 PM EST [...] Went to cathlab, came back ~1115am, s/p [facility] with no coronary artery disease seen. [...] for further details. JOCY Marie 04/17/2023 Pager [phone] * Plan of Care - Sudhakar Smith [...] PM EST Office Visit Cardiology at [address] [place] [id number] Jaspreet Kinsey MD [facility] [place] [address] documented as of this encounter Procedures Procedure [...] have questions please contact the health youth career specialist that requested your imaging first. ? 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 Following IV administration of 26.5 mCi technetium 99m sestamibi, SPECT-CT of the heart was obtained. Following IV injection of 8.8 mCi 93-pemwws-5-deoxyglucose (FDG) and a standard uptake of approximately [...] obtained. Following IV injection of 8.8 mCi 77-zcskeo-7-deoxyglucose (FDG) and astandard uptake of approximately 60 [...] who have questions please contactthe health youth career specialist that requested your imaging first. Electronically signed by: Humberto Qureshi MD, [facility]([phone]), at 05/06/2023 11:09 AM Maegan Mike ROM [...] have questions please contact the health youth career specialist that requested your imaging first. ? [...] who have questions please contactthe health youth career specialist that requested your imaging first. Lloyd Maloney MD IMG MRI ORDERABLES * Hemogram (04/21/2023 3:40 AM EST) White Blood Cell 7.1 4.0 - 9.5 x10(3)/[facility] LABORATORY Red Blood Cell 4.59 4.00 - 5.21 x10(6)/[facility] LABORATORY Hemoglobin 14.4 11.7 - 15.5 [...] [place] Platelet 221 145 - 357 x10(3)/[facility] LABORATORY RDW Standard Deviation 43.5 37.0 - 46.0 fL [facility] RDW coefficient of variation 12.6 11.5 - 14.1 % [facility] Mean Platelet Volume 11.1 7.6 - 12.9 fL [facility] NRBC% auto 0.0 % [facility] ITAL LABORAT[facility] NRBC Absolute 0.000 0.000 - 0.000 x10(3)/mcL [facility] Blood 04/21/2023 3:40 AM EST 04/21/2023 3:58 AM EST Narrative Resulting Agency Comment Spec In Lab Ailyn Knight MD HEMATOLOGY ORDERABLE S [facility] [place] [address] * (ABNORMAL) BMP w/fasting Glucose (04/21/2023 3:40 [...] of Diabetes Mellitus, Position Statement from the [place] [employer]. ??Diabetes Care, Volume 33, Supplement 1, Mar 2009 Blood Urea Nitrogen 20(H) 8 - 18 mg/dL [facility] Creatinine 1.14 0.70 - 1.20 mg/dL [facility] Sodium 138 135 - 145 [...] [facility] Anion Gap 10 5 - 15 [...] MD CHEMISTRY ORDERABLES Performing Organization Address [facility] Co de Phone Number [facility] [place] [address] * Magnesium (04/21/2023 3:40 AM EST) Magnesium 0.90 0.69 - 1.07 mmol/L [facility] Blood 04/21/2023 3:40 AM EST 04/21/2023 3:58 AM EST Narrative Resulting Agency Comment Spec In Lab Ailyn Knight MD CHEMISTRY ORDERABLES Performing Organization Address [facility] Co de Phone Number [facility] [place] [address] * (ABNORMAL) Troponin (04/20/2023 4:44 PM EST) [...] value can be found in the [facility] Test Catalog Troponin - [facility] Laboratory Test Catalog Reference: Fourth [place] Definition of Myocardial Infarction. Journal of the [place] College of [employer]iology 2018;72:8409-9465 Blood 04/20/2023 4:44 PM EST 04/20/2023 4:53 PM EST Narrative Resulting Agency Comment Spec In Lab Eufemia Copeland MD CHEMISTRY ORDERABL ES [facility] [place] [address] * Duplex for DVT, Arm, Unilat (04/20/2023 4:22 PM EST) VB Text Report Department: Vascular Surgery Lab Patient: [id number] (LOIDA MADRIGAL) CPT: 32976 Referring Physician: LLOYD MALONEY ?? Phone: Indications: [...] value can be found in the [facility] Test Catalog Troponin - [facility] Laboratory Test Catalog Reference: Fourth [place] Definition of Myocardial Infarction. Journal of the [place] College [employer]iology 2018;72:1291-9265 Blood 04/20/2023 1:47 PM EST 04/20/2023 2:18 PM EST Narrative Resulting Agency Comment Spec In Lab Eufemia Copeland MD CHEMISTRY ORDERABL ES Performing Organization Address City/[facility]/ZIP Co de Phone Number [facility] [place] [address] * (ABNORMAL) Troponin (04/20/2023 10:48 AM EST) [...] value can be found in the [facility] Test Catalog Troponin - [facility] Test Catalog Reference: Fourth [place] Definition of Myocardial Infarction. Journal of the [place] College of [employer]iology 2018;72:8699-1826 Blood 04/20/2023 10:4 8 AM EST 04/20/2023 11:03 AM EST Narrative Resulting Agency Comment Spec In Lab Eufemia Copeland MD CHEMISTRY ORDERABL ES Performing Organization Address City/[facility]/ZIP Co de Phone Number [facility] Saint [place] [address] * EKG 12 Lead (04/20/2023 10:23 AM EST) Ventricular rate 60 BPM MUSE SYSTEM Atrial Rate 60 BPM MUSE SYSTEM P-R Interval 170 ms MUSE SYSTEM QRS Duration 86 ms MUSE SYSTEM Q-T Interval 470 ms MUSE SYSTEM QTC Calculated (Bezet) 470 ms MUSE SYSTEM Calculated P [place] 39 degrees MUSE SYSTEM Calculated R [place] 63 degrees MUSE SYSTEM Calculated T [place] -16 degrees MUSE SYSTEM INTERPRETATION Normal sinus [...] leads Confirmed by MD Eli, Manish [place] ([id number]) on 04/22/2023 12:10:07 PM MUSE SYSTEM 04/20/2023 10:2 3 AM EST 04/22/2023 12:10 PM EST Lloyd Maloney MD ECG ORDERABLES MUSE SYSTEM * Hemogram (04/20/2023 3:11 AM EST) White Blood Cell 6.6 4.0 - 9.5 x10(3)/[facility] LABORATORY Red Blood Cell 4.59 4.00 - 5.21 x10(6)/[facility] LABORATORY Hemoglobin 14.2 11.7 - 15.5 [...] [place] [facility] Platelet 231 145 - 357 x10(3)/[facility] LABORATORY RDW Standard Deviation 43.6 37.0 - 46.0 fL [facility] RDW coefficient of variation 12.6 11.5 - 14.1 % [facility] Mean Platelet Volume 11.0 7.6 - 12.9 fL [facility] NRBC% auto 0.0 % [facility] NRBC Absolute 0.000 0.000 - 0.000 x10(3)/mcL [facility] Blood 04/20/2023 3:11 AM EST 04/20/2023 3:24 AM EST Narrative Resulting Agency Comment Spec In Lab Ailyn Knight MD HEMATOLOGY ORDERABLE S [facility] One [facility] [place] [address] * (ABNORMAL) BMP w/fasting Glucose (04/20/2023 3:11 [...] of Diabetes Mellitus, Position Statement from the [place] [employer]. ??Diabetes Care, Volume 33, Supplement [...] MD CHEMISTRY ORDERABLES Performing Organization Address [facility] Co de Phone Number [facility] [place] [address] * Magnesium (04/20/2023 3:11 AM EST) Magnesium 0.91 0.69 - 1.07 mmol/L [facility] Blood 04/20/2023 3:11 AM EST 04/20/2023 3:24 AM EST Narrative Resulting Agency Comment Spec In Lab Ailyn Knight MD CHEMISTRY ORDERABLES Performing Organization Address [facility] Co de Phone Number [facility] [place] [address] * Respiratory Panel PCR (04/19/2023 2:05 PM EST) Respiratory Panel Source [employer]PERATOR Swab [facility] Respiratory Panel PCR Negative Negative [facility] Comment: Respiratory Panels are performed on the [employer], using multiplexed PCR nucleic acid detection. ??Negative [...] performed using the BioFire Respiratory Panel 2.1 ([employer]) as authorized by the FDA issued Emergency Use Authorization (EUA). This panel also tests for multiple other viral and bacterial pathogens. This assay is intended for In-vitro Diagnostic (IVD) use with nasopharyngeal swabs in viral transport media. The assay is performed based on the instructions for use and additional guidance provided by the FDA. Testing is performed in laboratories within the [facility], each of which is certified under [...] fact sheets at the following FDA website: https://www.fda.gov/medical-devices/eiqtlfnpjpg-uqfevlq-2011-yiian-64-spvxgmgyr- use-a vnkcyzclyjbpu-jkukept-odnhqpk/vsmqs-ydkisbqaxjt-zade Human Metapneumovirus Not Detected Not Detected [facility] [...] - GENER AL ORDERABLES Performing Organization Address City/[facility]/ZIP Co de Phone Number [facility] [place] [address] * (ABNORMAL) Urine culture (04/19/2023 10:25 AM EST) Urine Culture 10,000-49,000 cfu/ml mixed mucosal elmer Note: Culture shows multiple bacterial species suggesting mucosal contamination. (A) [facility] Clean Catch Urine 04/19/2023 10:25 AM EST 04/19/2023 12:49 PM EST Narrative Resulting Agency Comment Spec In Lab Carrol SANDRA MICROBIOLOGY - GENER AL ORDERABLES Performing Organization Address City/[facility]/[place] [address] * (ABNORMAL) Urinalysis Microscopic Exam (04/19/2023 10:25 AM EST) RBC, Urine 1 0 - 4 /HPF [facility] WBC, Urine 10(H) 0 - 5 /HPF [facility] Squamous Epithelial Cells Raw Data, Urine 4 <=4 /HPF [facility] Hyaline Casts, Urine 1 0 - 2 /LPF [facility] Clean Catch Urine 04/19/2023 10:25 AM EST 04/19/2023 11:08 AM EST Narrative Resulting Agency Comment Spec In Lab Carrol SANDRA URINE ORDERABLES [facility] [place] [address] * (ABNORMAL) Urinalysis with reflex Culture (04/19/2023 10:25 AM EST) Glucose, Urine Dipstick >=1000(Criti edy) Negative mg/dL [facility] Comment: Urinalysis result NOT critical without [...] [facility] Specific [place] Urine Automated 1.024 1.005 - 1.030 [facility] Color, Urine Dipstick Yellow Yellow [facility] Reflex to Culture Yes [facility] Clean Catch Urine 04/19/2023 10:25 AM EST 04/19/2023 11:08 AM EST Narrative Resulting Agency Comment Spec In Lab Ailyn Knight MD URINE ORDERABLES [facility] [place] [address] * Arterial Duplex Arm, Unilat (04/19/2023 9:40 AM EST) VB Text Report Department: Vascular Surgery Lab Patient: [id number] (LOIDA MADRIGAL) CPT: 31725 Referring Physician: AILYN KNIGHT ?? Phone: Indications: [...] White Blood Cell 7.5 4.0 - 9.5 x10(3)/[facility] LABORATORY Red Blood Cell 4.86 4.00 - 5.21 x10(6)/[facility] LABORATORY Hemoglobin 14.8 11.7 - 15.5 [...] [place] Platelet 240 145 - 357 x10(3)/[facility] LABORATORY RDW Standard Deviation 43.8 37.0 - 46.0 fL [facility] RDW coefficient of variation 12.7 11.5 - 14.1 % [facility] Mean Platelet Volume 11.0 7.6 - 12.9 fL [facility] NRBC% auto 0.0 % [facility] NRBC Absolute 0.000 0.000 - 0.000 x10(3)/[facility] LABORATORY Blood 04/19/2023 2:40 AM EST 04/19/2023 2:57 AM EST Narrative Resulting Agency Comment Spec In Lab Ailyn Knight MD HEMATOLOGY ORDERABLE S [facility] [place] [address] * (ABNORMAL) BMP w/fasting Glucose (04/19/2023 2:40 AM EST) [facility] Glucose Fasting 106(H) 65 - 99 mg/dL [...] of Diabetes Mellitus, Position Statement from the [place] [employer]. ??Diabetes Care, Volume 33, Supplement 1, Mar 2009 Blood Urea Nitrogen 22(H) 8 - 18 mg/dL [facility] Creatinine 1.11 0.70 - 1.20 mg/dL [facility] MD CHEMISTRY ORDERABLES Performing Organization Address [facility] de Phone Number [facility] [place] [address] * Magnesium (04/19/2023 2:40 AM EST) Magnesium 0.97 0.69 - 1.07 mmol/L [facility] Blood 04/19/2023 2:40 AM EST 04/19/2023 2:57 AM EST Narrative Resulting Agency Comment Spec In Lab Ailyn Knight MD CHEMISTRY ORDERABLES Performing Organization Address [facility] de Phone Number [place] [phone] * CARDIAC CATHETERIZATION (04/18/2023 11:05 AM EST) Anatomical Region Laterality Modality Other Narrative 04/19/2023 6:57 AM EST ?[facility] ? Cardiac Catheterization/Intervention Report ? Patient Name: Neisha, Loida ? Procedure Date: 04/18/2023 ? A #: [id number] ? Primary Physician: Dustin Carrasco ? Case #: [id number] ? File Name: [id number] ? Catheterization Order Number: [id number] ? [facility] ? Final Report [place], [place] ? Patient Name: ? Loida Neisha ? ID#: ?[id number] ? : ?1970 ? Procedure Date: ? [...] procedure was Urgent. 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 [facility] is 4: [...] diagnostic procedure was Urgent. 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 A total [id number] of Omnipaque were opened, 65cc of Omnipaque were administered [id number] of Omnipaque were wasted. Radiation: Fluoro time [...] Heparin (unfractionated) Level (04/18/2023 8:23 AM EST) Pathologist [facility] UF Heparin 0.39 IU/mL [facility] Comment: Heparin (anti-Xa) levels [...] Lab Lloyd Maloney MD HEMATOLOGY ORDERABLE S [facility] [place] [address] * Differential, Automated (04/18/2023 2:10 AM EST) Pathologist [facility] Neutrophil % 51.4 % [facility] Neutrophil Absolute 3.43 1.70 - 6.10 x10(3)/[facility] LABORATORY Lymph % 33.8 % [facility] Lymphocytes Abs 2.2 0.9 - 3.2 x10(3)/[facility] LABORATORY Monocyte % 9.9 % [facility] Monocyte Abs 0.7 0.3 - 0.9 x10(3)/[facility] LABORATORY Eos % 3.9 % [facility] Eosinophils Abs 0.3 0.0 - 0.4 x10(3)/[facility] LABORATORY Basophil % 0.8 % [facility] Baso Absolute 0.0 0.0 - 0.1 x10(3)/[facility] LABORATORY Immature Gran % 0.20 % [facility] Comment: Immature granulocytes(IG's)percentage and absolute count will include metamyelocytes, myelocytes, and promyelocytes. Blood smears from CBCs yielding IG's will be scanned manually for concordance. If this scan disagrees with the automated IG or if promyelocytes are noted, a manual differential will be performed. Immature Gran Absolute 0.01 0.00 - 0.04 x10(3)/[facility] LABORATORY Blood 04/18/2023 2:10 AM EST 04/18/2023 2:44 AM EST Narrative Resulting Agency Comment Spec In Lab Lloyd Maloney MD HEMATOLOGY ORDERABLE S Performing Organization Address City/State/[facility] Co de Phone Number [facility] [place] [address] * Hemogram (04/18/2023 2:10 AM EST) White Blood Cell 6.7 4.0 - 9.5 x10(3)/[facility] LABORATORY Red Blood Cell 4.93 4.00 - 5.21 x10(6)/[facility] LABORATORY Hemoglobin 15.2 11.7 - 15.5 [...] [place] [facility] Platelet 233 145 - 357 x10(3)/[facility] LABORATORY RDW Standard Deviation 42.0 37.0 - 46.0 fL [facility] RDW coefficient of variation 12.8 11.5 - 14.1 % [facility] Mean Platelet Volume 11.3 7.6 - 12.9 fL [facility] NRBC% auto 0.0 % [facility] NRBC Absolute 0.000 0.000 - 0.000 x10(3)/mcL [facility] Blood 04/18/2023 2:10 AM EST 04/18/2023 2:44 AM EST Narrative Resulting Agency Comment Spec In Lab Lloyd Maloney MD HEMATOLOGY ORDERABLE S Performing Organization Address [facility] de Phone Number [facility] [place] [address] * Heparin (unfractionated) Level (04/18/2023 2:10 AM EST) UF Heparin 0.50 IU/mL [facility] Comment: Heparin (anti-Xa) levels [...] HEMATOLOGY ORDERABLE S Performing Organization Address [facility] de Phone Number [facility] [place] [address] * (ABNORMAL) BMP w/fasting Glucose (04/18/2023 2:10 AM EST) Glucose Fasting 98 65 - 99 mg/dL [facility] Comment: ?Fasting* Glucose Interpretive Criteria [...] of Diabetes Mellitus, Position Statement from the [place] [employer]. ??Diabetes Care, Volume 33, Supplement 1, Mar 2009 Blood Urea Nitrogen 23(H) 8 - 18 mg/dL [facility] Creatinine 1.18 0.70 - 1.20 mg/dL [facility] Sodium 143 135 - 145 mmol/L [...] ORDERABLES [facility] [place] [address] * Magnesium (04/18/2023 2:10 AM EST) Magnesium 1.02 0.69 - 1.07 mmol/L [facility] Blood 04/18/2023 2:10 AM EST 04/18/2023 2:44 AM EST Narrative Resulting Agency Comment Spec In Lab Ailyn Knight MD CHEMISTRY ORDERABLES Performing Organization Address City/[facility] Co de Phone Number [facility] [place] [address] * LDL Cholesterol, Direct (04/18/2023 2:10 AM EST) LDL Cholesterol, Direct 105 mg/dL [facility] Comment: Lowest Risk: <100 mg/dL Lower Risk: 100-129 mg/dL Borderline High Risk: 130-159 mg/dL High Risk: 160-189 mg/dL Very High Risk: >kt=901 mg/dL Blood 04/18/2023 2:10 AM EST 04/18/2023 2:44 AM EST Narrative Resulting Agency Comment Spec In Lab Lloyd Maloney MD CHEMISTRY ORDERABLES Performing Organization Address [facility] Co de Phone Number [facility] [place] [address] * Hemoglobin A1c (04/18/2023 2:10 AM EST) [...] Mellitus, Diabetes Care 2013; 36: Suppl. 1, S12-33 Estimated Average Glucose 115 mg/dL [facility] Blood 04/18/2023 2:10 AM EST 04/18/2023 2:44 AM EST Narrative Resulting Agency Comment Spec In Lab Lloyd Maloney MD CHEMISTRY ORDERABLES [facility] One [facility] [place] [address] * Lipid Panel (Reflex Direct LDL) (04/18/2023 2:10 AM EST) Cholesterol, Total 173 mg/dL [facility] Comment: Lower Risk: <200 mg/dL Average Risk: 200-239 mg/dL Higher Risk: >vp=082 mg/dL Triglyceride 174 mg/dL [facility] Comment: Average Risk/Lower Risk: <150 mg/dL Borderline High Risk: 150-199 mg/dL High Risk: 200-499 mg/dL Very High Risk: >ru=968 mg/dL HDL Cholesterol 44 mg/dL [facility] Comment: Males: ?? Higher Risk: <40 mg/dL Females: ?? Higher Risk: <50 mg/dL LDL Cholesterol 94 mg/dL [facility] Comment: Lowest Risk: <100 mg/dL Lower Risk: 100-129 mg/dL Borderline High Risk: 130-159 mg/dL High Risk: 160-189 mg/dL Very High Risk: >gp=454 mg/dL Cholesterol/HDL Ratio 3.9 ratio [facility] Lipid Interpretation See Note [facility] Comment: Lipid management should be guided by a patient? s ASCVD risk, goals and preferences. ACC/AHA Guidelines recommend high intensity statin if clinical ASCVD or LDL greater than or equal to 190 mg/dL. http://Happy [email or web address].com/BUM-MQK-Ssnybfhxv Adults aged 40-75 with LDL 70-189 mg/dL should have their 10 year ASCVD risk estimated with the ACC/AHA ASCVD risk saw runner http://tools.acc.org/PQSAP-Dyhl-Siiodexqb/ Statin should be discussed if risk greater [...] MD CHEMISTRY ORDERABLES Performing Organization Address [facility] Co de Phone Number [facility] [place] [address] * POCT Glucose (04/17/2023 7:44 PM EST) Glucose, POC 128 65 - 199 mg/dL [facility] Comment: Supplemental ranges: <140 mg/dL before meals <180 mg/dL all other times of the day Blood 04/17/2023 7:44 PM EST 04/17/2023 7:44 PM EST Ailyn Knight MD POINT OF CARE TEST O RDERABLES Performing Organization Address [facility] Co de Phone Number [facility] [place] [address] * (ABNORMAL) Heparin (unfractionated) Level (04/17/2023 6:01 [...] HEMATOLOGY ORDERABLE S Performing Organization Address [facility] Co de Phone Number [facility] [place] [address] * (ABNORMAL) Heparin (unfractionated) Level (04/17/2023 12:45 PM EST) UF Heparin 1.39(Crit ical) IU/mL [facility] Comment: Critical Result called [...] HEMATOLOGY ORDERABLE S Performing Organization Address [facility]/ZIP Co de Phone Number [facility] [place] [address] * ECHO LMTD W CONTRAST W LMTD SPEC DOPP COLOR DOPP (04/17/2023 11:59 AM EST) EF 58 HEARTLAB SYSTEM Anatomical Region Laterality Modality Cardiac Other 04/17/2023 10:2 4 AM EST Narrative 04/17/2023 12:[address] [address] ? Echocardiogram Report Name: LOIDA MADRIGAL ? Study Date: 04/17/2023 10:24 AMBP: 114/64 mmHg ? Patient Location: : 1970 ? Height: 160 cm ? Account: [id number] Age: 53 yrs ? Weight: 98 kg Gender: Female ?BSA: 2.0 m2 Ordering Physician: LLOYD MALONEY Referring Physician: LLOYD MALONEY Performed By: HAIM Becerra Reason For Study: Chest pain; NSTEMI Exam Location: [facility]. Interpretation Summary Left ventricle is [...] wall motion has increased. Procedure Limited - [id number]. Image enhancement Optison was used for left [...] Note Jaspreet Kinsey MD - 04/17/2023 [address] [place] [address] Echocardiogram Report Name: LOIDA MADRIGAL Study Date: 0:24 AMBP: 114/64 mmHg Patient Location: : 1970 Height: 160 cm Account: [id number] Age: 53 yrs Weight: 98 kg Gender: Female BSA: 2.0 m2 Ordering Physician: LLOYD MALONEY Referring Physician: LLOYD MALONEY Performed By: HAIM Becerra Reason For Study: Chest pain; NSTEMI Exam Location: [facility]. Interpretation Summary Left ventricle is normal in size and wall thickness. Normal globalsystolic function with regional wall motion abnormalities as ascribed on the anterior/anterolateral aspect. Right ventricle is normal in size and systolic function. No significant cardiac valve findings. No pericardial effusion. Compared to prior study dated 02/09/2023, the extent of the anteriorabnormal wall motion has increased. Procedure Limited - 87402. Image enhancement Optison was used for left [...] Heparin (unfractionated) Level (04/17/2023 6:43 AM EST) [facility] UF Heparin 1.41(Crit ical) IU/mL [facility] S [facility] [place] [address] * (ABNORMAL) Troponin (04/17/2023 6:43 AM EST) [...] value can be found in the [facility] Laboratory Test Catalog Troponin - [facility] Test Catalog Reference: Fourth [place] Definition of Myocardial Infarction. Journal of the [place] College [employer] 2018;72:4572-0132 Blood 04/17/2023 6:43 AM EST 04/17/2023 6:52 AM EST Narrative Resulting Agency Comment Spec In Lab Lloyd Maloney MD CHEMISTRY ORDERABLES Performing Organization Address City/State/[facility] Co de Phone Number [facility] [place] [address] * EKG 12 Lead (04/17/2023 3:41 AM EST) Ventricular rate 47 BPM MUSE SYSTEM Atrial Rate 47 BPM MUSE SYSTEM P-R Interval 186 ms MUSE SYSTEM QRS Duration 90 ms MUSE SYSTEM Q-T Interval 578 ms MUSE SYSTEM QTC Calculated (Bezet) 511 ms MUSE SYSTEM Calculated P [place] 24 degrees MUSE SYSTEM Calculated R [place] 23 degrees MUSE SYSTEM Calculated T [place] 27 degrees MUSE SYSTEM INTERPRETATION Sinus bradycardia with Premature atrial complexes Possible Left atrial enlargement Possible Lateral infarct , age undetermined Prolonged QT Abnormal ECG When compared with ECG of 01-APR-2023 12:28, Premature atrial complexes are now Present Vent. rate has decreased BY ??33 BPM Nonspecific T wave abnormality, improved in Anterior leads Confirmed by MD Angelo Danette ([id number]) on 04/20/2023 8:28:40 PM MUSE SYSTEM 04/17/2023 3:41 AM EST 04/20/2023 8:28 PM EST Lloyd Maloney MD ECG ORDERABLES MUSE SYSTEM * Differential, Automated (04/17/2023 3:33 AM EST) Neutrophil % 54.4 % [facility] Neutrophil Absolute 4.02 1.70 - 6.10 x10(3)/[facility] LABORAT[facility] Lymph % 32.0 % [facility] Lymphocytes Abs 2.4 0.9 - 3.2 x10(3)/[facility] Monocyte % 8.7 % [facility] Monocyte Abs 0.6 0.3 - 0.9 x10(3)/[facility] Eos % 3.9 % [facility] Eosinophils Abs 0.3 0.0 - 0.4 x10(3)/[facility]ORAT[facility] Basophil % 0.7 % [facility] Baso Absolute 0.0 0.0 - 0.1 x10(3)/[facility]AT[facility] Immature Gran % 0.30 % [facility] Comment: Immature granulocytes(IG's)percentage and absolute count will include metamyelocytes, myelocytes, and promyelocytes. Blood smears from CBCs yielding IG's will be scanned manually for concordance. If this scan disagrees with the automated IG or if promyelocytes are noted, a manual differential will be performed. Immature Gran Absolute 0.02 0.00 - 0.04 x10(3)/[facility] Blood 04/17/2023 3:33 AM EST 04/17/2023 3:42 AM EST Narrative Resulting Agency Comment Spec In Lab Lloyd Maloney MD HEMATOLOGY ORDERABLE S [facility] [address] * Hemogram (04/17/2023 3:33 AM EST) White Blood Cell 7.4 4.0 - 9.5 x10(3)/[facility]ORAT[facility] Red Blood Cell 4.79 4.00 - 5.21 x10(6)/[facility] Hemoglobin 14.8 11.7 - 15.5 [...] [place] [facility] Platelet 233 145 - 357 x10(3)/[facility] RDW Standard Deviation 43.4 37.0 - 46.0 fL [facility] RDW coefficient of variation 12.7 11.5 - 14.1 % [facility] Mean Platelet Volume 11.0 7.6 - 12.9 fL [facility] NRBC% auto 0.0 % [facility] NRBC Absolute 0.000 0.000 - 0.000 x10(3)/[facility] Blood 04/17/2023 3:33 AM EST 04/17/2023 3:42 AM EST Narrative Resulting Agency Comment Spec In Lab Lloyd Maloney MD HEMATOLOGY ORDERABLE S [facility] [place] [address] * Sedimentation rate (04/17/2023 3:33 AM EST) [...] Address City/[facility]/[place] [address] * CRP, acute inflammation (04/17/2023 3:33 AM EST) C-Reactive Protein <3.0 <=4.9 mg/L [facility] Blood 04/17/2023 3:33 AM EST 04/17/2023 3:42 AM EST Narrative Resulting Agency Comment Spec In Lab Lloyd Maloney MD CHEMISTRY ORDERABLES Performing Organization Address [facility] Co de Phone Number [facility] [place] [address] * (ABNORMAL) Troponin (04/17/2023 3:33 AM EST) [...] value can be found in the [facility] Test Catalog Troponin - [facility] Test Catalog Reference: Fourth [place] Definition of Myocardial Infarction. Journal of the [place] [employer] 2018;72:0956-7474 Blood 04/17/2023 3:33 AM EST 04/17/2023 3:42 AM EST Narrative Resulting Agency Comment Spec In Lab Lloyd Maloney MD CHEMISTRY ORDERABLES [facility] [place] [address] * (ABNORMAL) APTT (04/17/2023 3:33 AM EST) [...] HEMATOLOGY ORDERABLE S Performing Organization Address [facility] Co de Phone Number [facility] [place] [address] * (ABNORMAL) Prothrombin Time (04/17/2023 3:33 AM EST) Prothrombin Time 13.3(H) 9.4 - 12.5 sec [facility] International Normalization Ratio 1.2 [facility] Comment: An INR <2.0 indicates adequate [...] Address City/[facility]/ZIP Co de Phone Number [facility] [place] [address] * Hepatic Function Panel (04/17/2023 3:33 AM EST) Protein, Total 6.9 6.1 - 8.0 g/dL [facility] Albumin 4.2 3.2 - 5.2 g/dL [facility] Aspartate Aminotransferase Not Perf 0 - 30 [facility] Comment: Unable to quantitate due to sample hemolysis. ??Sample redraw suggested. Called by: Danny Bowles, Read back by: Nyla Cassidy, Date/Time:04/17/23 05:06. Alanine Aminotransferase 17 0 - 30 unit/L [facility] Alkaline Phosphatase 59 35 - 105 unit/L [facility] Bilirubin, Total 0.4 0.2 - 1.3 mg/dL [facility] Bilirubin, Direct 0.1 0.0 - 0.3 mg/dL [facility] Blood 04/17/2023 3:33 AM EST 04/17/2023 3:42 AM EST Narrative Resulting Agency Comment Spec In Lab Lloyd Maloney MD CHEMISTRY ORDERABLES Performing Organization Address City/[facility]/ZIP Co de Phone Number [facility] [place] [address] * (ABNORMAL) pro-Brain Natriuretic Peptide (04/17/2023 3:33 AM EST) Pathologist [facility] NT-proBNP 867(H) <=124 pg/mL [facility] Blood 04/17/2023 3:33 AM EST 04/17/2023 3:42 AM EST Narrative Resulting Agency Comment Spec In Lab Lloyd Maloney MD CHEMISTRY ORDERABLES Performing Organization Address City/[facility]/ZIP Co de Phone Number [facility] [place] [address] * (ABNORMAL) TSH (04/17/2023 3:33 AM EST) Pathologist [facility] Thyroid Stimulating Hormone 5.93(H) 0.27 - 4.20 mcIU/mL [facility] Comment: Reference Interval (mcIU/mL): Females: ??First Trimester: 0.23-3.88 ??Second Trimester: 0.22-3.90 ??Third Trimester: 0.44-4.66 Blood 04/17/2023 3:33 AM EST 04/17/2023 3:42 AM EST Narrative Resulting Agency Comment Spec In Lab Lloyd Maloney MD CHEMISTRY ORDERABLES Performing Organization Address [facility] de Phone Number [facility] [place] [address] * Phosphorus (04/17/2023 3:33 AM EST) Phosphorus 4.1 2.5 - 4.5 mg/dL [facility] Blood 04/17/2023 3:33 AM EST 04/17/2023 3:42 AM EST Narrative Resulting Agency Comment Spec In Lab Lloyd Maloney MD CHEMISTRY ORDERABLES Performing Organization Address [facility] Phone Number [facility] [place] [address] * Magnesium (04/17/2023 3:33 AM EST) Magnesium 0.99 0.69 - 1.07 mmol/L [facility] Blood 04/17/2023 3:33 AM EST 04/17/2023 3:42 AM EST Narrative Resulting Agency Comment Spec In Lab Lloyd Maloney MD CHEMISTRY ORDERABLES Performing Organization Address [facility] de Phone Number [facility] [place] [address] * (ABNORMAL) Basic Metabolic Panel (non-fasting) (04/17/2023 [...] ORDERABLES [facility] [place] [address] * Film Library- Storage Only CT Chest [...] on Wed04/19/23 at 1700, Until Discontinued, Routine Given 04/21/2023 5:36 PM EST 40 mg Given 04/20/2023 4:18 PM EST 40 mg Given 04/19/2023 5:40 PM EST 40 mg atropine (0.1 mg/mL) injection 1 mg 1 mg, Intravenous, EVERY 5 MIN PRN, 2 doses, Starting on Wed04/19/23 at 0431, Until Aura 04/22/23 at 1956, [...] on 04/19/23 at 1700, Until Discontinued, Routine 1618 (Given [...] dose on 04/17/23 at 0900, Until Discontinued 0830 (Given - Provider: Chilo Nickerson RN) 810 (Given - Provider: Charity Jackson, ERWIN) 924 (Given - Provider: China Myers) potassium [...] Rooney RN) 817 (Given - Provider: Charity Jackson, ERWIN)2100 (Given - Provider: Zoila Rooney RN) 926 (Given - Provider: China Myers) spironolactone (Aldactone) tablet 25 mg 25 mg, Oral, DAILY, First dose on 04/17/23 at 0900, Until Discontinued, DO NOT SPLIT, CRUSH OR OPEN, Routine 0829 (Given - Provider: Chilo Nickerson RN) 08 (Given - Provider: Charity Jackson RN) 0925 (Given - Provider: China Myers) topiramate (Topamax) [...] 5 MIN PRN, 2 doses, Starting on Wed04/19/23 at 0431, Until Aura 04/22/23 at 1956, [...] at 0304, Until Aura 04/22/23 at 195, flush, Flush pertains to all indwelling lines. [...] documented as of this encounter Care Teams Complaint Evaluation Supervisor Relationship Specialty Start Date End Date Polo Pearce PA [address] [place] [address] PCP - General Internal Medicine 06/09/21 documented as of this encounter
--- OUTSIDE RECORDS SUMMARY | 2024-01-24 12:36 | XMS_ITS | Encounter Summary ---
Author Organization [facility] [place] [address] Care Team Providers Care Fruit Harvester Name Role Phone Polo Pearce Primary Care Provider [phone] Encounter Details Date Type Department Care Team (Late st Contact Info) Description 04/02/2023 Telephone Cardiology at [address] [phone] Ambreen Cartagena Social History Tobacco Use Types Packs/Day Years Used Date Smoking Tobacco: Never Smokeless Tobacco: Never Alcohol Use Standard Drinks/Week Comments Never 0 (1 standard drink = 0.6 oz pur e alcohol) [facility] Utilities Answer Date Recorded In the past 12 months has e [employer], gas, oil, or water [place] threatened to shut off services in your [...] see this patient in follow up at [facility] in 2-3 months. She had SVT ablation 04/01/23. Message sent Mary at [facility] to get pt scheduled there for f/up. Ambreen Cartagena Sr. Clinical Procedure [place]/[employer] Salesperson documented in this encounter Plan of Treatment Upcoming Encounters Date Type Department Care Team (Late st Contact Info) Description 02/10/2024 1:00 PM EST Office Visit Cardiology at [address] [place] [phone] Jaspreet Kinsey MD [facility] [place] [address] documented as of this encounter Visit Diagnoses Not on filedocumented in this encounter Care Teams Fruit Harvester Relationship Specialty Start Date End Date Polo Pearce PA [address] [place] [address] PCP - General Internal Medicine 06/09/21 documented as of this encounter
--- OUTSIDE RECORDS SUMMARY | 2024-01-24 12:36 | XMS_ITS | Encounter Summary ---
Author Organization [facility] [place] [address] Care Team Providers Care Assistant Art Director Name Role Phone Polo Pearce Primary Care Provider [phone] Encounter Details Date Type Department Care Team (Late st Contact Info) Description 04/16/2023 Telephone Cardiology at [address] [phone] Vaishnavi Pratt MD [facility] [place] [address] Social History Tobacco Use Types Packs/Day Years Used Date Smoking Tobacco: Never Smokeless Tobacco: Never Alcohol Use Standard Drinks/Week Comments Never 0 (1 standard drink = 0.6 oz pur e alcohol) [facility] Utilities Answer Date Recorded In the past 12 months has [place], gas, oil, or water [employer] threatened to shut off services in your [...] 1:00 PM EST Office Visit Cardiology at [address] [phone] Jaspreet Kinsey MD [facility] [place] [address] documented as of this encounter Visit Diagnoses [...] documented as of this encounter Care Teams Assistant Art Director Relationship Specialty Start Date End Date Polo Pearce PA [address] [place] [address] PCP - General Internal Medicine 06/09/21 documented as of this encounter
--- OUTSIDE RECORDS SUMMARY | 2024-01-24 12:36 | XMS_ITS | Encounter Summary ---
Author Organization [place] [address] Care Team Providers Care Heel Seat Filler Name Role Phone Polo Pearce Primary Care Provider [phone] Encounter Details Date Type Department Care Team (Late st Contact Info) Description 04/16/2023 External [place] [address] Social History Tobacco Use Types Packs/Day Years [...] 1:00 PM EST Office Visit Cardiology at [address] [place] [address] Jaspreet Kinsey MD [facility] [place] [address] documented as of this encounter Procedures Procedure Name Priority Date/Time Associated Diagnosis Comments ECG SCAN Routine 04/16/2023 6:11 PM EST documented in this encounter Results * Scan Doc: ECG (04/16/2023 6:11 PM EST) Historical Provider MD [facility] MGR SCAN EX T ORDR/RSLT documented in this encounter Visit Diagnoses Not on filedocumented in this encounter Care Teams Heel Seat Filler Relationship Specialty Start Date End Date Polo Pearce PA Sb [address] [place] [address] PCP - General Internal Medicine 06/09/21 documented as of this encounter
--- OUTSIDE RECORDS SUMMARY | 2024-01-24 12:36 | XMS_ITS | Encounter Summary ---
[place] [address] Care Team Providers Care Professor Of Sociology Name Role Phone Polo Pearce Primary Care Provider [phone] Reason for Visit * Auth/Cert (Routine) Specialty Diagnoses / Procedures Referred By Contac t Referred To Contact Diagnoses NSTEMI (non-ST elevated myocardial infarction) NSTEMI Procedures ER Lloyd Pantoja MD [facility] [place] [address] [facility] Referral ID Status Reason Start Date Expiration Date Visits Re quested Visits Authorized [id number] 1 1 Encounter Details Date Type Department Care Team (Latest Contact Info) Description 04/17/2023 9:15 AM EST - 04/17/2023 11:59 PM EST Hospital Encounter Non[place] [address] Discharge Disposition: Home Social History Tobacco Use Types Packs/Day Years Used Date Smoking Tobacco: Never Smokeless Tobacco: Never Alcohol Use Standard Drinks/Week Comments Never 0 (1 standard drink = 0.6 oz pur e alcohol) [facility] Utilities Answer Date Recorded In the past 12 months has [employer], gas, oil, or water company threatened [...] a senior care (including now)? No 02/10/2023 DH IPV Inpatient [...] as needed. fluticasone propionate (FLONASE) 50 mcg/actuation [place], Suspension 1 spray by Each Nare route [...] 1:00 PM EST Office Visit Cardiology at [address] [place] [address] Jaspreet Kinsey MD [facility] [place] [address] documented as of this encounter Procedures Procedure [...] mLs documented in this encounter Care Teams Professor Of Sociology Relationship Specialty Start Date End Date Polo Pearce PA [address] [place] [address] PCP - General Internal Medicine 06/09/21 documented as of this encounter
--- OUTSIDE RECORDS SUMMARY | 2024-01-24 12:36 | XMS_ITS | Encounter Summary ---
Author Organization [facility] [place] [address] Care Team Providers Care Distillery Worker Name Role Phone Polo Pearce Primary Care Provider [phone] Encounter Details Date Type Department Care Team (Late st Contact Info) Description 04/16/2023 Telephone Cardiology at [address] [phone] Vaishnavi Pratt MD [facility] [place] [address] Social History Tobacco Use Types Packs/Day Years Used Date Smoking Tobacco: Never Smokeless Tobacco: Never Alcohol Use Standard Drinks/Week Comments Never 0 (1 standard drink = 0.6 oz pur e alcohol) [facility] Utilities Answer Date Recorded In the past 12 months has e [employer], gas, oil, or water [employer] threatened to shut off services in your [...] in a assisted (including now)? No 02/10/2023 IPV Inpatient Questions [...] included. Initial Contact Date: 04/16/23 Referring Provider: [place] Patient Location: [facility] HPI: 53 y.o. 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 Preceding this, she has documented sustained narrow complex tachycardia on 06/13/2021 in the context of hospitalization at [facility] for NSTEMI. 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 So she was transferred to [facility] for EPS and ablation. She now presents to [facility] with chest discomfortthat started overnight. Upon chart review of Rn notes, patient reports that prior to the procedure she was having chest pain, worse with laying flat. She continued to have feelings of warmth and diaphoresis which improvedmildly immediately after procedure but resumed a few days after. Patient also had an admission to [facility] for chest pain on 02/11/23 and it [...] that was done by the on-call overnight nursing home administrator, there is no significant change in biventricular [...] and Asa load. Will accept patient to [facility] for further workup. Although history sounds suspicious for pericarditis, recent ESR/CRP were normal. Suspect at [facility] patient will need to complete ischemic workup. Recommendations: Heparin gtt, Asa load, High intensity statin Transfer to [facility] Above recommendations were based on my discussion with OSH; I have not personally interviewed or examined this patient. Advised to call the transfer center back with any changes in the patient condition. Vaishnavi Pratt MD Drilling Field Operator documented in this encounter Plan of Treatment Upcoming Encounters Date Type Department Care Team (Late st Contact Info) Description 02/10/2024 1:00 PM EST Office Visit Cardiology at [address] [place] [address] Jaspreet Kinsey MD [facility] [place] [address] documented as of this encounter Visit Diagnoses Not on filedocumented in this encounter Care Teams Distillery Worker Relationship Specialty Start Date End Date Polo Pearce PA [address] [place] [address] PCP - General Internal Medicine 06/09/21 documented as of this encounter
--- OUTSIDE RECORDS SUMMARY | 2024-01-24 12:36 | XMS_ITS | Encounter Summary ---
[place] [address] Care Team Providers Care Remote Sensing Research Scientist Name Role Phone Polo Pearce Primary Care Provider [phone] Reason for Visit * Auth/Cert (Routine) Specialty [...] THER/DX INTERVENT ELECTROPHYSIOLOGY PROCEDURE Jed Tovar MD [facility] [place] [address] [facility] Referral ID Status Reason Start Date Expiration Date Visits Re quested Visits Authorized [id number] 1 1 Encounter Details Date Type Department Care Team (Latest Contact Info) Description 04/01/2023 6:20 AM EST - 04/01/2023 4:00 PM EST Hospital Encounter [place] [address] Jed Tovar MD [facility] [place] [address] SVT (supraventricular tachycardia); PAF (paroxysmal atrial fibrillation) Discharge Disposition: Home Social History Tobacco Use Types Packs/Day Years Used Date Smoking Tobacco: Never Smokeless Tobacco: Never Alcohol Use Standard Drinks/Week Comments Never 0 (1 standard drink = 0.6 oz pur e alcohol) [facility] Utilities Answer Date Recorded In the past 12 months has th e [employer], gas, oil, or water [employer] threatened to shut off services in your [...] Indira Roque Patient Age: 53 y.o. Language: Occitan Race: White Ethnicity: Not [...] Cardiac Electrophysiology - Weekends and holidays call [phone]; ask for operations planner director of hotel operations. Discharge Diagnoses (Hospital Problems) and Secondary Diagnoses [...] 06/13/2021 in the context of hospitalization at [facility] for NSTEMI. A rapidly conducted narrow [...] days. Refills: 0 fluticasone propionate 50 mcg/actuation [place], Suspension Commonly known as: Flonase 1 spray [...] 3:00 PM Jaspreet Kinsey MD Cardiology at [place] Arrive at: [facility] [address] [phone] Discharge References/Attachments None documented in this encounter [...] as needed. fluticasone propionate (FLONASE) 50 mcg/actuation [place], Suspension 1 spray by Each Nare route [...] PRE-PROCEDURE H&P Referring Provider: Jaspreet Kinsey MD [facility] [address] Attending Provider: Jed Tovar MD Planned Procedure: EP study and SVT ablation Background and rationale for the procedure: Indira Roque is a 53 y.o. woman with paroxysmal atrial fibrillation, heart failure with preserved EF, and chronic angina with non-obstructive ASCVD but significant calcifications per coronary CTA. She has documented sustained narrow complex tachycardia on 06/13/2021 in the context of hospitalization at [facility] for NSTEMI. A rapidly conducted narrow [...] as needed. fluticasone propionate (FLONASE) 50 mcg/actuation [place], Suspension 1 spray by Each Nare route [...] in agreement. Dr. Jed Tovar, electrophysiology attending ([id number]) documented in this encounter Procedure Notes * [...] jittery Break coverage by Luiza Peña RN [phone]. PACU D/C criteria met at 1300 1345 Hand off to ERWIN GomezP documented in this encounter Miscellaneous Notes * Brief Op Note - Jed Tovar MD - 04/01/2023 11:07 AM EST Brief Operative Note Patient Name: Indira Roque : [id number] MR#: [id number] Case Date: 04/01/2023 Surgeon: Surgeon(s) and Role: [...] 1:00 PM EST Office Visit Cardiology at [address] [address] Jaspreet Kinsey MD [facility] [place] [address] documented as of this encounter Procedures Procedure [...] (Bezet) 519 ms MUSE SYSTEM Calculated P Leiter 44 degrees MUSE SYSTEM Calculated R Leiter 41 degrees MUSE SYSTEM Calculated T Leiter 36 degrees MUSE SYSTEM INTERPRETATION Normal sinus [...] not included. ELECTROPHYSIOLOGY STUDY AND SVT ABLATION Manager Internship: Jed Tovar MD Fellow: Jaspreet Grimm MD Referring: Jaspreet Kinsey MD Patient History: Indira Roque is a 53 y.o. woman with one episode of paroxysmal atrial fibrillation, heart failure with preserved EF, and chronic angina with non-obstructive ASCVD but significant calcifications per coronary CTA. She has documented sustained narrow complex tachycardia on 06/13/2021 in the context of hospitalization at [facility] for NSTEMI. A rapidly conducted narrow [...] Intervals (ms) Interval Name Interval length (milliseconds) NC 260 QRS 97 QT 531 AH 159 HV 47 Refractory Periods Atrial ERP 700/300 AV Makayla Conduction AV Wenckebach 360 ms Retrograde Wenckebach 470 ms Medication Summary (drug, amount, route) Isoproterenol at 2-4 mcg/kg/min Radiology Summary Total Fluoro time (min) 1.4 DAP (cGycm2) 53 Findings: 1. The baseline EKG revealed sinus rhythm with prolonged NC and long AH, but otherwise normal intervals [...] with Dr. Tovar in 1-3 ??months at [facility] 5. 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 Procedures performed: SVT ablation (cpt 40735); induce post IV drug (cpt 44279-66-57) I have read, edited and approve of this report: Jed Tovar MD S Cardiac Electrophysiology 04/03/2023 11:10 AM Jed Tovar MD EP PROCEDURE ORDERAB LES * EKG 12 Lead (04/01/2023 7:31 AM EST) Pathologist [facility] Ventricular rate 59 BPM MUSE SYSTEM Atrial Rate 59 BPM MUSE SYSTEM P-R Interval 190 ms MUSE SYSTEM QRS Duration 84 ms MUSE SYSTEM Q-T Interval 528 ms MUSE SYSTEM QTC Calculated (Bezet) 522 ms MUSE SYSTEM Calculated P Leiter 50 degrees MUSE SYSTEM Calculated R Leiter 69 degrees MUSE SYSTEM Calculated T Leiter 16 degrees MUSE SYSTEM INTERPRETATION Sinus bradycardia Lateral infarct , age undetermined Prolonged QT Abnormal ECG When compared with ECG of 22-MAR-2023 16:45, (unconfirmed) T wave inversion no longer evident in Anterior leads QT has lengthened I personally reviewed the tracing and edited the fellows interpretation Confirmed by fellow MD Nas, Max ([id number]) on 04/01/2023 3:35:42 PM Confirmed by MD NAILA, KAUSHIK ([id number]) on 04/02/2023 8:28:26 AM MUSE SYSTEM 04/01/2023 7:31 AM EST 04/02/2023 8:28 AM EST Jed Tovar MD ECG ORDERABLES MUSE SYSTEM * Differential, Automated (04/01/2023 7:20 AM EST) Pathologist [facility] Neutrophil % 53.2 % [facility] SPITAL [facility] Neutrophil Absolute 3.51 1.70 - 6.10 x10(3)/[facility] LABORATORY Lymph % 32.4 % [facility] Lymphocytes Abs 2.1 0.9 - 3.2 x10(3)/[facility] LABORATORY Monocyte % 8.7 % [facility] HOSP ITAL LABORATORY Monocyte Abs 0.6 0.3 - 0.9 x10(3)/[facility] LABORATORY Eos % 4.6 % [facility] Eosinophils Abs 0.3 0.0 - 0.4 x10(3)/[facility] LABORATORY Basophil % 0.8 % [facility] ITAL LABORATORY Baso Absolute 0.0 0.0 - 0.1 x10(3)/[facility] LABORATORY Immature Gran % 0.30 % [facility] Comment: Immature granulocytes(IG's)percentage and absolute count will include metamyelocytes, myelocytes, and promyelocytes. Blood smears from CBCs yielding IG's will be scanned manually for concordance. If this scan disagrees with the automated IG or if promyelocytes are noted, a manual differential will be performed. Immature Gran Absolute 0.02 0.00 - 0.04 x10(3)/[facility] LABORATORY Blood 04/01/2023 7:20 AM EST 04/01/2023 7:33 AM EST Narrative Resulting Agency Comment Spec In Lab Jed Tovar MD HEMATOLOGY ORDERABLE S Performing Organization Address City/State/[facility] Co de Phone Number [facility] [place] [address] * (ABNORMAL) Hemogram (04/01/2023 7:20 AM EST) White Blood Cell 6.6 4.0 - 9.5 x10(3)/mc L [facility] Red Blood Cell 4.56 4.00 - 5.21 x10(6)/mc L [facility] Hemoglobin 14.1 11.7 - 15.5 g/dL [facility] Hematocrit 43.1 35.7 - 45.8 % [facility] Mean Cell Volume 94.5(H) 82.6 - 94.4 fL [facility] Mean Cell Hemoglobin 30.9 27.1 - 32.0 pg [facility] Mean Cell Hemoglobin Concentration 32.7 31.7 - 35.0 g/dL [facility] Platelet 229 145 - 357 x10(3)/mc L [facility] RDW Standard Deviation 44.7 37.0 - 46.0 fL [facility] RDW coefficient of variation 12.7 11.5 - 14.1 % [facility] Mean Platelet Volume 11.7 7.6 - 12.9 fL [facility] HOSPITAL [facility] NRBC% auto 0.0 % [facility] HOSP ITAL LABORATORY NRBC Absolute 0.000 0.000 - 0.000 x10(3)/mc L [facility] Blood 04/01/2023 7:20 AM EST 04/01/2023 7:33 AM EST Narrative Resulting Agency Comment Spec In Lab Jed Tovar MD HEMATOLOGY ORDERABLE S [facility] [place] [address] * (ABNORMAL) BMP w/fasting Glucose (04/01/2023 7:20 AM EST) Glucose Fasting 99 65 - 99 mg/dL [facility] Comment: ?Fasting* Glucose Interpretive Criteria Normal [...] of Diabetes Mellitus, Position Statement from the [place] [employer]. ??Diabetes Care, Volume 33, Supplement 1, Mar 2009 Blood Urea Nitrogen 22(H) 8 - 18 mg/dL [facility] Creatinine 1.10 0.70 - 1.20 mg/dL [facility] Sodium 139 135 - 145 mmol/L [facility] Potassium 4.2 3.5 - 5.0 mmol/L [facility] Comment: Please note: ??Patients with WBC >100,000 may have falsely elevated Potassium levels. ??For accurate Potassium quantification in these patients send serum separator tube (gold top) for subsequent determinations. ??Contact the Clinical Chemistry Laboratory if there are any questions. Chloride 108(H) 98 - 107 mmol/L [facility] Carbon Dioxide 22 22 - 31 mmol/L [facility] Anion Gap 9 5 - 15 mmol/L [facility] Calcium 9.6 8.5 - 10.5 mg/dL [facility] Est Glomerular Filtration Rate 60 >=60 mL/min/1. 73 m?? [facility] Comment: This patient's estimated [...] Tovar MD CHEMISTRY ORDERABLES Performing Organization Address City/State/[facility] Co de Phone Number [facility] [place] [address] documented in this encounter Visit Diagnoses Diagnosis [...] Routine documented in this encounter Care Teams Remote Sensing Research Scientist Relationship Specialty Start Date End Date Polo Pearce PA [address] [place] [address] PCP - General Internal Medicine 06/09/21 documented as of this encounter
--- OUTSIDE RECORDS SUMMARY | 2024-01-24 12:36 | XMS_ITS | Encounter Summary ---
[place] [address] Care Team Providers Care Billiard Table Assembler Name Role Phone Polo Pearce Primary Care Provider [phone] Reason for Visit * Auth/Cert (Routine) Specialty [...] THER/DX INTERVENT ELECTROPHYSIOLOGY PROCEDURE Jed Tovar MD [facility] [place] [address] [facility] Referral ID Status Reason Start Date Expiration Date Visits Re quested Visits Authorized [id number] 1 1 Encounter Details Date Type Department Care Team (Late st Contact Info) Description 04/01/2023 7:39 AM EST Anesthesia Event [place]rophys[place] [address] Merlin Lozoya MD [facility] [place] [address] Anesthesia Record Procedure Summary Procedure [...] by: tanja; Removal Date: 04/01/23; Removal Time: 1119 04/01/23 0750 by Jaspreet Perry, PSYCHIATRIC THERAPIST 04/01/23 1119 by Merlin Lozoya MD PIV 04/01/23; 0754; 18 gauge; dorsal arch vein (top of hand), right; Anatomical Landmarks; tanja; no longer indicated; 04/01/23; 1551 04/01/23 0754 by Jaspreet Perry, PSYCHIATRIC THERAPIST 04/01/23 1551 by Gianna Bland RN LDA Cath/EP Sheath 04/01/23; 0823; 6.5 Taj[place] (Fr); Left, Anterior; Femoral; Venous 04/01/23 0823 by Mary Herman RN 04/01/23 1056 by Mary Herman RN LDA Cath/EP Sheath 04/01/23; 0825; 6.5 Taj[place] (Fr); Left, Anterior; Femoral; Venous 04/01/23 0825 by Mary Herman RN 04/01/23 1057 by Mary Herman RN LDA Cath/EP Sheath 04/01/23; 0825; 6.5 [place] (Fr); Left, Anterior; Femoral; Venous 04/01/23 0825 by Mary Herman RN 04/01/23 1057 by Mary Herman RN LDA Cath/EP Sheath 04/01/23; 0827; 6.5 [place] (Fr); Right, Anterior; Femoral; Venous 04/01/23 0827 by Mary Herman RN 04/01/23 1057 by Mary Herman RN LDA Cath/EP Sheath 04/01/23; 0833; 5.5 Taj[place] (Fr); Right, Anterior; Femoral; Venous 04/01/23 0833 by Mary Herman RN 04/01/23 1058 by Virgil, Mary M, RN documented in this encounter Social History [...] Procedure Summary Date: 04/01/23 Room / Location: EP B-LAB ROOM 4 / [facility] EP LABS Anesthesia Start: 738 Anesthesia Stop: 113 Procedure: ELECTROPHYSIOLOGY PROCEDURE Diagnosis: SVT (supraventricular tachycardia) (SVT (supraventricular tachycardia) [I47.10]) Providers: Jed Tovar MD Responsible Provider: Merlin Lozoya MD Anesthesia Type: general ASA Status: 3 All Anesthesia Providers: Anesthesiologist: Merlin Lozoya MD PSYCHIATRIC THERAPIST: Jaspreet Perry CRNA Vitals Value Taken Time BP 104/58 04/01/23 1345 Temp 36.4 ??C (97.5 ??F) 04/01/23 1315 Pulse 66 04/01/23 1346 Resp 14 04/01/23 1346 SpO2 96 % 04/01/23 1346 Pain Level Vitals shown include unfiled device data. Patient Location: PACU[facility] Level of Consciousness: Awake and Alert [...] risks discussed with patient. Plan discussed with PSYCHIATRIC THERAPIST. Anesthesia Screening documented in this encounter Plan of Treatment Upcoming Encounters Date Type Department Care Team (Late st Contact Info) Description 02/10/2024 1:00 PM EST Office Visit Cardiology at [address] [place] [phone] Jaspreet Kinsey MD [facility] [place] [address] documented as of this encounter Visit Diagnoses [...] mg documented in this encounter Care Teams Billiard Table Assembler Relationship Specialty Start Date End Date Polo Pearce PA [address] [place] [address] PCP - General Internal Medicine 06/09/21 documented as of this encounter
--- OUTSIDE RECORDS SUMMARY | 2024-01-24 12:36 | XMS_ITS | Encounter Summary ---
Author Organization [facility] Address [place] [address] Care Team Providers Care Electronic Communications Technician Name Role Phone Polo Pearce Primary Care Provider [phone] Encounter Details Date Type Department Care Team (Late st Contact Info) Description 04/16/2023 Ancillary Procedure Radiology Library at [facility] [place] [address] Social History Tobacco Use Types Packs/Day Years Used Date Smoking Tobacco: Never Smokeless Tobacco: Never Alcohol Use Standard Drinks/Week Comments Never 0 (1 standard drink = 0.6 oz pur e alcohol) [facility] Utilities Answer Date Recorded In the past 12 months has e [employer] gas, oil, or water [employer] threatened to shut off services in your [...] 1:00 PM EST Office Visit Cardiology at [address] [place] [address] Jaspreet Kinsey MD [facility] [place] [address] documented as of this encounter Procedures Procedure [...] on filedocumented in this encounter Care Teams Electronic Communications Technician Relationship Specialty Start Date End Date Polo Pearce PA [address] [place] [address] PCP - General Internal Medicine 06/09/21 documented as of this encounter
--- OUTSIDE RECORDS SUMMARY | 2024-01-24 12:36 | XMS_ITS | Encounter Summary ---
Author Organization [facility] [place] [address] Care Team Providers Care Preschool Substitute Teacher Name Role Phone Polo Pearce Primary Care Provider [phone] Reason for Visit * Reason Onset Date Comments Post Procedure Call 04/08/2023 Encounter Details Date Type Department Care Team (Late st Contact Info) Description 04/08/2023 Notes Only Cardiology at [address] [phone] Mary Motta, RN Post Procedure Call Social History Tobacco Use Types Packs/Day Years Used Date Smoking Tobacco: Never Smokeless Tobacco: Never Alcohol Use Standard Drinks/Week Comments Never 0 (1 standard drink = 0.6 oz pur e alcohol) [facility] Utilities Answer Date Recorded In the past 12 months has [employer], gas, oil, or water [employer] threatened to shut off services in your [...] with Dr. Tovar in 1-3 months at [facility] Catheter Insertion Area Care - [...] of any new medications initiated at the [facility]. The patient should be aware and [...] his/her physician or the Cardiac Electrophysiology Service ([phone]). documented in this encounter Plan of Treatment Upcoming Encounters Date Type Department Care Team (Late st Contact Info) Description 02/10/2024 1:00 PM EST Office Visit Cardiology at [address] [place] [address] Jaspreet Kinsey MD [facility] [place] [address] documented as of this encounter Visit Diagnoses Not on filedocumented in this encounter Care Teams Preschool Substitute Teacher Relationship Specialty Start Date End Date Polo Pearce PA [address] [place] [address] PCP - General Internal Medicine 06/09/21 documented as of this encounter
--- OUTSIDE RECORDS SUMMARY | 2024-01-24 12:36 | XMS_ITS | Encounter Summary ---
Author Organization [facility] Address [facility] [place] [address] Care Team Providers Care Estimator Binding Name Role Phone Polo Pearce Primary Care Provider [phone] Reason for Visit * Reason Comments Palpitations SVT Encounter Details Date Type Department Care Team (Late st Contact Info) Description 03/22/2023 4:20 PM EST Office Visit Cardiology at [address] [address] Jaspreet Kinsey MD [facility] [place] [address] SVT (supraventricular tachycardia); Pulmonary embolism without acute [...] in this encounter Progress Notes * Jaspreet Kinsye MD - 03/22/2023 4:20 PM EST Images [...] in early February; she was transferred to [facility]. At that interface, amlodipine was discontinued due to mild peripheral edema, and bumex was changed to torsemide ( the latter for unclear reason). Ranexa was also initiated, as was aldactone; the latter to preserve eukalemia. The former was discontinued due to fogginess/dizziness, with quick resolution of symptoms. Since then, she has been doing well. She has been participating in cardiac rehab at [facility] and finds herself making gains in [...] 30 DAYS fluticasone propionate (FLONASE) 50 mcg/actuation [place], Suspension 1 spray, Each Nare, DAILY gabapentin [...] upper lobe. Started on eliquis 08/2022 TTE ([facility]): normal bi-v s/f. No significant VHD (HFpEF) heart failure with preserved ejection fraction 05/2021: subacute, presented to [facility] with RUQ pain, weight gain, [...] PM EST Office Visit Cardiology at [address] [place] [phone] Jaspreet Kinsey MD [facility] [place] [address] documented as of this encounter Visit Diagnoses Diagnosis SVT (supraventricular tachycardia) Other specified cardiac dysrhythmias Pulmonary embolism without acute cor pulmonale, unspecified chronicity, unspecified pulmonary embolism type Paroxysmal atrial fibrillation Atrial fibrillation Heart failure with preserved ejection fraction, unspecified HF chronicity documented in this encounter Care Teams Estimator Binding Relationship Specialty Start Date End Date Polo Pearce PA [address] [place] [address] PCP - General Internal Medicine 06/09/21 documented as of this encounter
--- OUTSIDE RECORDS SUMMARY | 2024-01-24 12:36 | XMS_ITS | Encounter Summary ---
[place] [address] Care Team Providers Care Marketing Budget Analyst Name Role Phone Polo Pearce Primary Care Provider [phone] Reason for Visit * Auth/Cert (Routine) Specialty [...] MD [facility] [place] [address] [facility] Referral ID Status Reason Start Date Expiration Date Visits Re quested Visits Authorized [id number] 1 1 Encounter Details Date Type Department Care Team (Late st Contact Info) Description 04/01/2023 7:30 AM EST - 04/01/2023 12:00 PM EST Surgery Electrophys[place] [id number] Jed Tovar MD [facility] [place] [address] ELECTROPHYSIOLOGY PROCEDURE Social History Tobacco Use Types Packs/Day Years Used Date Smoking Tobacco: Never Smokeless Tobacco: Never Alcohol Use Standard Drinks/Week Comments Never 0 (1 standard drink = 0.6 oz pur e alcohol) [facility] Utilities Answer Date Recorded In the [...] Indira Roque Patient Age: 53 y.o. Language: Thai Race: White Ethnicity: Not nor Admit date: [...] Cardiac Electrophysiology - Weekends and holidays call [phone]; ask for drying tumbler operator personal insurance advisor. Discharge Diagnoses (Hospital Problems) and Secondary Diagnoses [...] 06/13/2021 in the context of hospitalization at [facility] for NSTEMI. A rapidly conducted narrow complex [...] days. Refills: 0 fluticasone propionate 50 mcg/actuation [place], Suspension Commonly known as: Flonase 1 spray [...] 3:00 PM Jaspreet Kinsey MD Cardiology at [place] Arrive at: [facility] [address] [phone] Discharge References/Attachments None documented in this encounter [...] as needed. fluticasone propionate (FLONASE) 50 mcg/actuation [place], Suspension 1 spray by Each Nare route [...] PRE-PROCEDURE H&P Referring Provider: Jaspreet Kinsey MD [facility] [place] [address] Attending Provider: Jed Tovar MD Planned Procedure: EP study and SVT ablation Background and rationale for the procedure: Indira Roque is a 53 y.o. woman with paroxysmal atrial fibrillation, heart failure with preserved EF, and chronic angina with non-obstructive ASCVD but significant calcifications per coronary CTA. She has documented sustained narrow complex tachycardia on 06/13/2021 in the context of hospitalization at [facility] for NSTEMI. A rapidly conducted narrow complex [...] as needed. fluticasone propionate (FLONASE) 50 mcg/actuation [place], Suspension 1 spray by Each Nare route [...] in agreement. Dr. Jed Tovar, electrophysiology attending ([id number]) documented in this encounter Procedure Notes * [...] jittery Break coverage by Luiza Peña RN [phone]. PACU D/C criteria met at 1300 1345 Hand off to ERWIN Gomez SDP documented in this encounter Miscellaneous Notes * Brief Op Note - Jed Tovar MD - 04/01/2023 11:07 AM EST Brief Operative Note Patient Name: Indira Roque : [id number] MR#: [id number] Case Date: 04/01/2023 Surgeon: Surgeon(s) and Role: [...] PM EST Office Visit Cardiology at [address] [place] [address] Jaspreet Kinsey MD [facility] [place] [address] documented as of this encounter Procedures Procedure [...] (Bezet) 519 ms MUSE SYSTEM Calculated P [place] 44 degrees MUSE SYSTEM Calculated R [place] 41 degrees MUSE SYSTEM Calculated T [place] 36 degrees MUSE SYSTEM INTERPRETATION Normal sinus rhythm Possible Left atrial enlargement Nonspecific ST and T wave abnormality Prolonged QT Abnormal ECG When compared with ECG of 01-APR-2023 07:31, (unconfirmed) Nonspecific T wave abnormality now evident in Anterior leads Confirmed by MD NAILA, KAUSHIK () on 04/01/2023 1:23:14 PM MUSE SYSTEM 04/01/2023 12:2 8 PM EST 04/01/2023 1:23 PM EST Jed Tovar MD ECG ORDERABLES MUSE SYSTEM * ELECTROPHYSIOLOGY PROCEDURE (04/01/2023 8:05 AM EST) Anatomical Region Laterality Modality Other Narrative 04/03/2023 11:13 AM EST Table formatting from the original result was not included. Images from the original result were not included. ELECTROPHYSIOLOGY STUDY AND SVT ABLATION Cooker Process Cheese: Jed Tovar MD Fellow: Jaspreet Grimm MD Referring: Jaspreet Kinsey MD Patient History: Indira Roque is a 53 y.o. woman with one episode of paroxysmal atrial fibrillation, heart failure with preserved EF, and chronic angina with non-obstructive ASCVD but significant calcifications per coronary CTA. She has documented sustained narrow complex tachycardia on 06/13/2021 in the context of hospitalization at [facility] for NSTEMI. A rapidly conducted narrow complex [...] Intervals (ms) Interval Name Interval length (milliseconds) SC 260 QRS 97 QT 531 AH 159 HV 47 Refractory Periods Atrial ERP 700/300 AV Makayla Conduction AV Wenckebach 360 ms Retrograde Wenckebach 470 ms Medication Summary (drug, amount, route) Isoproterenol at 2-4 mcg/kg/min Radiology Summary Total Fluoro time (min) 1.4 DAP (cGycm2) 53 Findings: 1. The baseline EKG revealed sinus rhythm with prolonged SC and long AH, but otherwise normal intervals [...] Dr. Tovar in 1-3 ??months at [facility] 5. 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 Procedures performed: SVT ablation (cpt 73906); induce post IV drug (cpt 73258-20-64) I have read, edited and approve of [...] (Bezet) 522 ms MUSE SYSTEM Calculated P [place] 50 degrees MUSE SYSTEM Calculated R [place] 69 degrees MUSE SYSTEM Calculated T [place] 16 degrees MUSE SYSTEM INTERPRETATION Sinus bradycardia Lateral infarct , age undetermined Prolonged QT Abnormal ECG When compared with ECG of 22-MAR-2023 16:45, (unconfirmed) T wave inversion no longer evident in Anterior leads QT has lengthened I personally reviewed the tracing and edited the fellows interpretation Confirmed by fellow MD Nas, Max ([id number]) on 04/01/2023 3:35:42 PM Confirmed by MD NAILA, KAUSHIK ([id number]) on 04/02/2023 8:28:26 AM MUSE SYSTEM 04/01/2023 7:31 AM EST 04/02/2023 8:28 AM EST Jed Tovar MD ECG ORDERABLES MUSE SYSTEM * Differential, Automated (04/01/2023 7:20 AM EST) Neutrophil % 53.2 % [facility] Neutrophil Absolute 3.51 1.70 - 6.10 x10(3)/[facility] LABORAT[facility] Lymph % 32.4 % [facility] Lymphocytes Abs 2.1 0.9 - 3.2 x10(3)/[facility] LABORATORY Monocyte % 8.7 % [facility] IT[facility] Monocyte Abs 0.6 0.3 - 0.9 x10(3)/[facility] LABORATORY Eos % 4.6 % [facility] Eosinophils Abs 0.3 0.0 - 0.4 x10(3)/[facility] LABORATORY Basophil % 0.8 % [facility] ITAL LABORAT[facility] Baso Absolute 0.0 0.0 - 0.1 x10(3)/[facility] LABORATORY Immature Gran % 0.30 % [facility] Comment: Immature granulocytes(IG's)percentage and absolute count will include metamyelocytes, myelocytes, and promyelocytes. Blood smears from CBCs yielding IG's will be scanned manually for concordance. If this scan disagrees with the automated IG or if promyelocytes are noted, a manual differential will be performed. Immature Gran Absolute 0.02 0.00 - 0.04 x10(3)/[facility] LAB[facility] Blood 04/01/2023 7:20 AM EST 04/01/2023 7:33 AM EST Narrative Resulting Agency Comment Spec In Lab Jed Tovar MD HEMATOLOGY ORDERABLE S Performing Organization Address City/State/[facility] Co de Phone Number [facility] [place] [address] * (ABNORMAL) Hemogram (04/01/2023 7:20 AM EST) White Blood Cell 6.6 4.0 - 9.5 x10(3)/mc L [facility] Red Blood Cell 4.56 4.00 - 5.21 x10(6)/mc L [facility] Hemoglobin 14.1 11.7 - 15.5 g/dL [facility] Hematocrit 43.1 35.7 - 45.8 % [facility] Mean Cell Volume 94.5(H) 82.6 - 94.4 fL [facility] Mean Cell Hemoglobin 30.9 27.1 - 32.0 pg [facility] Mean Cell Hemoglobin Concentration 32.7 31.7 - 35.0 g/dL [facility] Platelet 229 145 - 357 x10(3)/mc L [facility] RDW Standard Deviation 44.7 37.0 - 46.0 fL [facility] RDW coefficient of variation 12.7 11.5 - 14.1 % [facility] Mean Platelet Volume 11.7 7.6 - 12.9 fL [facility] NRBC% auto 0.0 % [facility] ITAL [facility] NRBC Absolute 0.000 0.000 - 0.000 x10(3)/mc L [facility] Blood 04/01/2023 7:20 AM EST 04/01/2023 7:33 AM EST Narrative Resulting Agency Comment Spec In Lab Jed Tovar MD HEMATOLOGY ORDERABLE S [facility] [place] [address] * (ABNORMAL) BMP w/fasting Glucose (04/01/2023 7:20 AM EST) Glucose Fasting 99 65 - 99 mg/dL [facility] Comment: ?Fasting* Glucose Interpretive Criteria [...] of Diabetes Mellitus, Position Statement from the [place] [employer]. ??Diabetes Care, Volume 33, Supplement 1, Mar 2009 Blood Urea Nitrogen 22(H) 8 - 18 mg/dL [facility] Creatinine 1.10 0.70 - 1.20 mg/dL [facility] Sodium 139 135 - 145 mmol/L [facility] Potassium 4.2 3.5 - 5.0 mmol/L [facility] Comment: Please note: ??Patients with WBC >100,000 may have falsely elevated Potassium levels. ??For accurate Potassium quantification in these patients send serum separator tube (gold top) for subsequent determinations. ??Contact the Clinical Chemistry Laboratory if there are any questions. Chloride 108(H) 98 - 107 mmol/L [facility] Carbon Dioxide 22 22 - 31 mmol/L [facility] Anion Gap 9 5 - 15 mmol/L [facility] Calcium 9.6 8.5 - 10.5 mg/dL [facility] Est Glomerular Filtration Rate 60 >=60 mL/min/1. 73 m?? [facility] Comment: This patient's estimated GFR [...] In Lab Jed Tovar MD CHEMISTRY ORDERABLES [facility] [place] [address] documented in this encounter Visit Diagnoses Diagnosis [...] EVERY 5 MIN PRN, Starting on Aura 04/01/24 at 1112, Until Aura 04/01/23 at 1558, [...] EVERY 5 MIN PRN, Starting on Aura 1/24 at 1112, Until Aura 1/24 at 1558, Pain, Mild to moderate pain [...] EVERY 5 MIN PRN, Starting on Aura 1/24 at 1112, Until Aura 1/24 at 1558, Pain, Moderate to severe pain (6-10 out of 10), Hold for respiratory rate less than 10 per minute. Maximum dose 200 mcg over one hour, including OR administration. If ordered with HYDROmorphone or morphine, give HYDROmorphone or morphine first and use fentaNYL for breakthrough pain., PACU Recovery, Routine documented in this encounter Care Teams Marketing Budget Analyst Relationship Specialty Start Date End Date Polo Pearce PA [address] [place] [address] PCP - General Internal Medicine 06/09/21 documented as of this encounter
--- OUTSIDE RECORDS SUMMARY | 2024-01-24 12:37 | XMS_ITS | Encounter Summary ---
Author Organization [facility] Address [facility] [place] [address] Care Team Providers Care Mending Carrier Name Role Phone Polo Pearce Primary Care Provider [phone] Reason for Visit * Reason Comments Congestive Heart Failure HFpEF Encounter Details Date Type Department Care Team (Late st Contact Info) Description 10/08/2022 4:00 PM EDT Office Visit Cardiology at [address] [address] Jaspreet Kinsey MD [facility] [place] [address] Pulmonary embolism, unspecified chronicity, unspecified pulmonary embolism [...] through Care Everywhere. * Low Sodium Diet (Bahraini) * Low Sodium Foods: General Info (Bahraini) documented in this encounter Progress Notes * [...] be estimated Intercurrently, patient was admitted to [facility] 09/2022. She presented after developing acute worseningof [...] 30 DAYS fluticasone propionate (FLONASE) 50 mcg/actuation [place], Suspension 1 spray, Each Nare, DAILY gabapentin [...] PM EST Office Visit Cardiology at [address] [place] [address] Jaspreet Kinsey MD [facility] [place] [address] documented as of this encounter Visit Diagnoses Diagnosis Pulmonary embolism, unspecified chronicity, unspecified pulmonary embolism type, unspecified whether acute cor pulmonale present Heart failure with preserved ejection fraction, unspecified HF chronicity Chronic heart failure with preserved ejection fraction documented in this encounter Care Teams Mending Carrier Relationship Specialty Start Date End Date Polo Pearce PA [address] [place] [address] PCP - General Internal Medicine 06/09/21 documented as of this encounter
--- OUTSIDE RECORDS SUMMARY | 2024-01-24 12:37 | XMS_ITS | Encounter Summary ---
Author Organization [facility] [place] [address] Care Team Providers Care Director Of Assessment Name Role Phone Polo Pearce Primary Care Provider [phone] Encounter Details Date Type Department Care Team (Late st Contact Info) Description 02/08/2023 Telephone Cardiology at [address] [address] Ericka Brenner PA [facility] [address] Social History Tobacco Use Types Packs/Day Years [...] PM Referring Provider: Dr. Iyer Patient Location: [facility] Brief History 52 year old female with [...] acute aortopathy. 4. No acute pulmonary findings. [facility] 08/2019: Conclusions: * Normal coronary arteries OSH Interventions: Sl nitro Full dose ASA Assessment & Plan: 52 year old female with history of prior NSTEMI with normal coronaries 2019, recent coronary CTA with ca score 198), HTN, HLD, HFpEF, Afib (on Eliquis) who is presenting with chest pain. Has had similar presentation in 2019 with a [facility] demonstrating normal coronaries at that [...] as type 1 [address] transfer [address] [facility] for further evaluation. - agree with nitro gtt if not chest pain free - if persistent chest pain with nitro gtt would load Plavix 600mg - start IV heparin gtt 12 hours post last dose of Eliquis - BB as able, HI statin - transfer to [facility] 02/08/23 Above recommendations were based on my discussion with Dr. Iyer; I have not personally interviewed or examined this patient. I encouraged them to contact us if there is any change in symptoms, decision- making, or further need for guidance in management. JOCY Valdivia-Chauncey Access Pager [phone] 02/08/2023 documented in this encounter Plan of Treatment Upcoming Encounters Date Type Department Care Team (Late st Contact Info) Description 02/10/2024 1:00 PM EST Office Visit Cardiology at [address] [place] [address] Jaspreet Kinsey MD [facility] [place] [address] documented as of this encounter Visit Diagnoses Not on filedocumented in this encounter Care Teams Director Of Assessment Relationship Specialty Start Date End Date Polo Pearce PA [address] [place] [address] PCP - General Internal Medicine 06/09/21 documented as of this encounter
--- OUTSIDE RECORDS SUMMARY | 2024-01-24 12:37 | XMS_ITS | Encounter Summary ---
Author Organization [facility] [place] [address] Care Team Providers Care Quality Control Tech Name Role Phone Polo Pearce Primary Care Provider [phone] Encounter Details Date Type Department Care Team (Late st Contact Info) Description 10/20/2022 Telephone Cardiology at [address] [address] Jaspreet Kinsey MD [facility] [place] [address] Social History Tobacco Use Types Packs/Day Years [...] to update office that she was at [facility] this morning as a follow [...] 1:00 PM EST Office Visit Cardiology at [address] [place] [address] Jaspreet Kinsey MD [facility] [place] [address] documented as of this encounter Visit Diagnoses Not on filedocumented in this encounter Care Teams Quality Control Tech Relationship Specialty Start Date End Date Polo Pearce PA [address] [place] [address] PCP - General Internal Medicine 06/09/21 documented as of this encounter
--- OUTSIDE RECORDS SUMMARY | 2024-01-24 12:37 | XMS_ITS | Encounter Summary ---
[place] [address] Care Team Providers Care Clearing Distribution Clerk Name Role Phone Polo Pearce Primary Care Provider [phone] Reason for Visit * Auth/Cert (Routine) Specialty Diagnoses / Procedures Referred By Contac t Referred To Contact Diagnoses NSTEMI (non-ST elevated myocardial infarction) NSTEMI Procedures EMERGENCY MICHELLEI Willy Gómez MD [facility] [place] [address] [facility] Referral ID Status Reason Start Date Expiration Date Visits Re quested Visits Authorized [id number] 1 1 Encounter Details Date Type Department Care Team (Latest Contact Info) Description 09/27/2022 6:50 AM EDT - 09/27/2022 11:59 PM EDT Hospital Encounter Non[place] [address] Discharge Disposition: Home Social History Tobacco Use [...] as needed. fluticasone propionate (FLONASE) 50 mcg/actuation [place], Suspension 1 spray by Each Nare route [...] 1:00 PM EST Office Visit Cardiology at [address] [place] [address] Jaspreet Kinsey MD [facility] [place] [address] documented as of this encounter Procedures Procedure [...] mLs documented in this encounter Care Teams Clearing Distribution Clerk Relationship Specialty Start Date End Date Polo Pearce PA [address] [place] [address] PCP - General Internal Medicine 06/09/21 documented as of this encounter
--- OUTSIDE RECORDS SUMMARY | 2024-01-24 12:37 | XMS_ITS | Encounter Summary ---
Author Organization [facility] [place] [address] Care Team Providers Care Dean Of Instruction Name Role Phone Polo Pearce Primary Care Provider [phone] Reason for Visit * Reason Comments Congestive Heart Failure HFpEF Atrial Fibrillation Encounter Details Date Type Department Care Team (Late st Contact Info) Description 11/17/2022 9:00 AM EDT Office Visit Cardiology at [address] [address] Jaspreet Kinsey MD [facility] [place] [address] Paroxysmal atrial fibrillation; Heart failure with preserved [...] In the interim, she was seen at [facility] vascular clinic and whilst having an episode [...] 30 DAYS fluticasone propionate (FLONASE) 50 mcg/actuation [place], Suspension 1 spray, Each Nare, DAILY gabapentin [...] upper lobe. Started on eliquis 08/2022 TTE ([facility]): normal bi-v s/f. No significant VHD (HFpEF) heart failure with preserved ejection fraction 05/2021: subacute, presented to [facility] with RUQ pain, weight gain, and [...] PM EST Office Visit Cardiology at [address] [place] [phone] Jaspreet Kinsey MD [facility] [place] [address] documented as of this encounter Visit Diagnoses Diagnosis Paroxysmal atrial fibrillation Atrial fibrillation Heart failure with preserved ejection fraction, unspecified HF chronicity Pulmonary embolism without acute cor pulmonale, unspecified chronicity, unspecified pulmonary embolism type Chronic heart failure with preserved ejection fraction documented in this encounter Care Teams Dean Of Instruction Relationship Specialty Start Date End Date Polo Pearce PA [address] [place] [address] PCP - General Internal Medicine 06/09/21 documented as of this encounter
--- OUTSIDE RECORDS SUMMARY | 2024-01-24 12:37 | XMS_ITS | Encounter Summary ---
Author Organization [facility] [place] [address] Care Team Providers Care Dolphin Researcher Name Role Phone Polo Pearce Primary Care Provider [phone] Encounter Details Date Type Department Care Team (Late st Contact Info) Description 02/08/2023 External [place] [address] Social History Tobacco Use Types Packs/Day Years [...] 1:00 PM EST Office Visit Cardiology at [address] [place] [address] Jaspreet Kinsey MD [facility] [place] [address] documented as of this encounter Procedures Procedure Name Priority Date/Time Associated Diagnosis Comments ECG SCAN Routine 02/08/2023 3:27 PM EST documented in this encounter Results * Scan Doc: ECG (02/08/2023 3:27 PM EST) Historical Provider MD FLEMING MGR SCAN EX T ORDR/RSLT documented in this encounter Visit Diagnoses Not on filedocumented in this encounter Care Teams Dolphin Researcher Relationship Specialty Start Date End Date Polo Pearce PA [address] [place] [address] PCP - General Internal Medicine 06/09/21 documented as of this encounter
--- OUTSIDE RECORDS SUMMARY | 2024-01-24 12:37 | XMS_ITS | Encounter Summary ---
Author Organization [facility] [place] [address] Care Team Providers Care Communications Director Name Role Phone Polo Pearce Primary Care Provider [phone] Reason for Visit * Reason Onset Date Comments Pre Procedure Call 03/16/2023 Encounter Details Date Type Department Care Team (Late st Contact Info) Description 03/16/2023 Telephone Cardiology at [address] [address] Mary Motta RN Pre Procedure Call Social History Tobacco Use Types Packs/Day Years Used Date Smoking Tobacco: Never Smokeless Tobacco: Never Alcohol Use Standard Drinks/Week Comments Never 0 (1 standard drink = 0.6 oz pur e alcohol) [facility] Utilities Answer Date Recorded In the past 12 months has [employer], gas, oil, or water [employer] threatened to shut off services in [...] ESTSummary: Pre Procedure Call: SVT Ablation EP PAN GREASER COORDINATION CHECKLIST Patient Name: Indira Roque Patient Performing Primer Assembler: Jed Tovar Referring Provider: Jaspreet Kinsey Date of Procedure: 04/01/23 Arrival Time/ Case Time: 6:00 am / 7:30 am Check In Location: Molded Goods Inspector Trimmer Desk 4W Date Patient was Called: 04/01/23 Procedure: SVT Ablation Company: [employer] Type: RF Orders: Yes Lab Orders: Yes [...] overnight , understands that they will need coal tram driver on day of discharge Notified pt that Esqueda catheter may be placed on day of procedure depending on type & duration of case. documented in this encounter Plan of Treatment Upcoming Encounters Date Type Department Care Team (Late st Contact Info) Description 02/10/2024 1:00 PM EST Office Visit Cardiology at [address] [place] [address] Jaspreet Kinsey MD [facility] [address] documented as of this encounter Visit Diagnoses Not on filedocumented in this encounter Care Teams Communications Director Relationship Specialty Start Date End Date Polo Pearce PA [address] [address] PCP - General Internal Medicine 06/09/21 documented as of this encounter
--- OUTSIDE RECORDS SUMMARY | 2024-01-24 12:37 | XMS_ITS | Encounter Summary ---
Author Organization [facility] [place] [address] Care Team Providers Care Hospital Wellness Coordinator Name Role Phone Polo Pearce Primary Care Provider [phone] Encounter Details Date Type Department Care Team (Late st Contact Info) Description 10/20/2022 Telephone Cardiology at [address] [address] Gianna Day RN Social History [...] PM EST Office Visit Cardiology at [address] [address] Jaspreet Kinsey MD [facility] [place] [address] documented as of this encounter Visit Diagnoses Not on filedocumented in this encounter Care Teams Hospital Wellness Coordinator Relationship Specialty Start Date End Date Polo Perace PA [address] [place] [address] PCP - General Internal Medicine 06/09/21 documented as of this encounter
--- OUTSIDE RECORDS SUMMARY | 2024-01-24 12:37 | XMS_ITS | Encounter Summary ---
Author Organization [facility] [place] [address] Care Team Providers Care Caster Helper Name Role Phone Polo Pearce Primary Care Provider [phone] Encounter Details Date Type Department Care Team (Late st Contact Info) Description 09/26/2022 External [place] [address] Social History Tobacco Use Types Packs/Day Years [...] 1:00 PM EST Office Visit Cardiology at [address] [address] Jaspreet Kinsey MD [facility] [place] [address] documented as of this encounter Procedures Procedure Name Priority Date/Time Associated Diagnosis Comments ECG SCAN Routine 09/26/2022 8:40 AM EDT documented in this encounter Results * Scan Doc: ECG (09/26/2022 8:40 AM EDT) Historical Provider MEDIA MGR SCAN EX T ORDR/RSLT documented in this encounter Visit Diagnoses Not on filedocumented in this encounter Care Teams Caster Helper Relationship Specialty Start Date End Date Polo Pearce PA [address] [place] [address] PCP - General Internal Medicine 06/09/21 documented as of this encounter
--- OUTSIDE RECORDS SUMMARY | 2024-01-24 12:37 | XMS_ITS | Encounter Summary ---
Author Organization [place] [address] Care Team Providers Care Cupola Melter Helper Name Role Phone Polo Pearce Primary Care Provider [phone] Encounter Details Date Type Department Care Team (Late st Contact Info) Description 08/31/2022 Telephone Cardiology at [address] [address] Carrol La PA [facility] [place] [address] Social History Tobacco Use Types Packs/Day Years [...] original note were not included. 08/31/2022 Indira Roque Initial Contact Date: 08/31/2022 Contact time: 2:04 PM Referring Provider: Dr. Evans Patient Location: [facility] Brief History Lyubov Roque is a 52 y.o female with PMH of HFpEF, SVT, PE on Eliquis, HLD who presented to the OSH with nausea, diffuse abdominal pain. Developed chest pain that OSH provider reports was LUQ pain under left breast. [place] like a sharp, intermittent squeeze. Patient is [...] was LUQ abdominal pain under left breast. [place] like a sharp, intermittent squeeze that resolved [...] on prior lab checks in [facility] system. ACS seems unlikely at this time based on my discussion with Dr. Evans as her symptoms seem GI in origin. This may represent a type II NSTEMI in setting of CATIE and acute GI illness. I recommended close follow up with Dr. Kinsey, primary fire officer who can consider stress testing. In addition, [...] in management. Carrol La PA-C Access Pager [phone] 08/31/2022 documented in this encounter Plan of Treatment Upcoming Encounters Date Type Department Care Team (Late st Contact Info) Description 02/10/2024 1:00 PM EST Office Visit Cardiology at [address] [place] [address] Jaspreet Kinsey MD [facility] [place] [address] documented as of this encounter Visit Diagnoses Not on filedocumented in this encounter Care Teams Cupola Melter Helper Relationship Specialty Start Date End Date Polo Pearce PA [address] [place] [address] PCP - General Internal Medicine 06/09/21 documented as of this encounter
--- OUTSIDE RECORDS SUMMARY | 2024-01-24 12:37 | XMS_ITS | Encounter Summary ---
Author Organization [facility] [place] [address] Care Team Providers Care Transformer Coil Winder Name Role Phone Polo Pearce Primary Care Provider [phone] Encounter Details Date Type Department Care Team (Late st Contact Info) Description 09/26/2022 [place] [address] Paulo Ramachandran Jr., MD [facility] [place] [address] Social History Tobacco Use Types Packs/Day Years [...] - 09/26/2022 9:05 AM EDT Contacted by OSH ED for cardiology [...] vasospasm rather than a true Type I VA, however, given degree of troponin rise and [...] 1:00 PM EST Office Visit Cardiology at [address] [place] [address] Jaspreet Kinsey MD [facility] [place] [address] documented as of this encounter Visit Diagnoses Not on filedocumented in this encounter Care Teams Transformer Coil Winder Relationship Specialty Start Date End Date Polo Pearce PA [address] [place] [address] PCP - General Internal Medicine 06/09/21 documented as of this encounter
--- OUTSIDE RECORDS SUMMARY | 2024-01-24 12:37 | XMS_ITS | Encounter Summary ---
Author Organization [facility] [place] [address] Care Team Providers Care Revit Drafter Name Role Phone Polo Pearce Primary Care Provider [phone] Reason for Visit * Reason Onset Date Comments Results 08/17/2022 Encounter Details Date Type Department Care Team (Late st Contact Info) Description 08/17/2022 Telephone Cardiology at [address] [address] Jaspreet Kinsey MD [facility] [place] [address] Results Social History Tobacco Use Types Packs/Day [...] PM EST Office Visit Cardiology at [address] [place] [address] Jaspreet Kinsey MD [facility] [place] [address] documented as of this encounter Visit Diagnoses Not on filedocumented in this encounter Care Teams Revit Drafter Relationship Specialty Start Date End Date Polo Pearce PA [address] [place] [address] PCP - General Internal Medicine 06/09/21 documented as of this encounter
--- OUTSIDE RECORDS SUMMARY | 2024-01-24 12:37 | XMS_ITS | Encounter Summary ---
Author Organization [facility] [place] [address] Care Team Providers Care Nurse Staff Community Health Name Role Phone Polo Pearce Primary Care Provider [phone] Encounter Details Date Type Department Care Team [...] PM EST Office Visit Cardiology at [address] [place] [address] Jaspreet Kinsey MD [facility] [place] [address] documented as of this encounter Visit Diagnoses Not on filedocumented in this encounter Care Teams Nurse Staff Community Health Relationship Specialty Start Date End Date Polo Pearce PA [address] [place] [address] PCP - General Internal Medicine 06/09/21 documented as of this encounter
--- OUTSIDE RECORDS SUMMARY | 2024-01-24 12:37 | XMS_ITS | Encounter Summary ---
[place] [address] Care Team Providers Care Agency Operator Name Role Phone Polo Pearce Primary Care Provider [phone] Reason for Visit * Auth/Cert (Routine) Specialty Diagnoses / Procedures Referred By Contac t Referred To Contact Diagnoses NSTEMI (non-ST elevated myocardial infarction) NSTEMI NSTEMI (non-ST elevated myocardial infarction) [I21.4] [I21.4] NSTEMI (non-ST elevated myocardial infarction) Procedures EMERGENCY IPI Itz Bhardwaj MD [facility] [place] [address] [facility] Referral ID Status Reason Start Date Expiration Date Visits Re quested Visits Authorized [id number] 1 1 Encounter Details Date Type Department Care Team (Latest Contact Info) Description 02/08/2023 6:34 PM EST - 02/11/2023 3:45 PM EST Hospital Encounter Heart and Vascular Unit Level 4 [place] [id number] Bobyb Edmonds MD [facility] [place] [address] Itz Bhardwaj MD [facility] [place] [address] Chest pain, unspecified type; NSTEMI (non-ST elevated myocardial infarction) Discharge Disposition: Home Social History Tobacco Use Types Packs/Day Years Used Date Smoking Tobacco: Never Smokeless Tobacco: Never Alcohol Use Standard Drinks/Week Comments Never 0 (1 standard drink = 0.6 oz pur e alcohol) [facility] Utilities Answer Date Recorded In the past 12 months has th e electric, gas, oil, or water [employer] threatened to shut off services in your [...] Loida Madrigal Patient Age: 52 y.o. Language: Niuean Race: White Ethnicity: Not nor Admit date: 02/08/2023 Discharge date and time: 02/11/2023 Attending Physician: Itz Bhardwaj MD Discharge Physician: Itz Bhardwaj MD PCP: JOCY Franco ([phone]) ID: Loida Madrigal is a 52 y.o. female w/ PMH of NSTEMI (2019, no coronary disease identified),HTN, HLD, HFpEF, PE, AVNRT, and Afib on eliquis, admitted to [facility] on 02/08/2023 for a total of 3 [...] elevated troponin and EKG changes, cardiology at [facility] was contacted for transfer. She was loaded [...] unchanged from prior EKGs. Her troponins at [facility] are flat 23 > 27. Additionally, she had a CT coronary in 09/2022 which showed non-obstructive coronary arteries. Her TTE was reassuring with EF 59% with concern for segmental wall motion abnormalities that were not present prior. Her chest pain is likely not related to ACS. She did continue to have chest pain throughoutadmission that responded to nitro. 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 Refills: 0 fluticasone propionate 50 mcg/actuation [place], Suspension Commonly known as: Flonase 1 spray [...] 11:20 AM Jed Tovar MD Cardiology at [facility] Arrive at: [employer] [phone] 03/04/2023 4:00 PM Jaspreet Kinsey MD Cardiology at [place] Arrive at: [facility] [address] [phone] Provider Contact Information: JOCY Franco DR [facility] / [facility] [id number] Discharge References/Attachments: Discharge References/Attachments None Addendum: The [...] as needed. fluticasone propionate (FLONASE) 50 mcg/actuation [place], Suspension 1 spray by Each Nare route [...] hours. Recent Labs 02/10/23 0346 02/09/23 0355 02/08/232207 CALCIUM 9.2 9.4 8.9 MAGNESIUM 1.01 1.04 [...] that was done by the on-call overnight managed care analyst, there is no significant change in biventricular [...] Heidy Walker DO Internal Medicine PGY-1 Pager [phone], M1-S2 Service Associated attestation - Itz Bhardwaj [...] Inpatient Cardiology Progress Note Patient Name: Loida Jude Date of Admission: 02/08/2023 ( Hospital Day [...] that was done by the on-call overnight managed care analyst, there is no significant change in biventricular [...] Heidy Walker DO Internal Medicine PGY-1 Pager [phone], M1-S2 Service documented in this encounter H&P Notes * German Bianchi MD - 02/08/2023 10:05 PM EST Images from the original note were not included. Cardiology Admission History and Physical Patient Name: Loida Madrigal Service: M1-S1 Responsible Attending: Bobby Edmonds MD PCP: JOCY Franco PCP phone #: [phone] ID/Chief Complaint: Loida Madrigal is a 52 y.o. female with a PMHx NSTEMI (2019, no coronary disease identified), HTN, HLD, HFpEF, PE, AVNRT, and Afib on eliquis who initially presented to [facility] with chest pain and shortness of breath, now transferred to [facility] for management of presumed NSTEMI. History of [...] elevated troponin and EKG changes, cardiology at [facility] was contacted for transfer. She was loaded [...] as needed. fluticasone propionate (FLONASE) 50 mcg/actuation [place], Suspension 1 spray by Each Nare route [...] Mother: history of stroke. Father: history of FL in father. Siblings: none. Social History: Tobacco: [...] and shortness of breath, now transferred to [facility] for management of presumed NSTEMI. Mrs. Madrigal [...] Bianchi MD, PGY-2 Cardiology M1-S2, Team Pager [phone] 02/08/2023 Associated attestation - Itz Bhardwaj MD [...] fairly recent. She has ruled out for FL with low-level not increasing troponins and her [...] Notes * Plan of Care - Malia Mcintyre RN - 02/11/2023 2:37 PM EST OUTCOME [...] COVID test: Lab Results Component Value Date [id number] Not Detected 06/13/2021 Present on Admission: NSTEMI (non-ST elevated myocardial infarction) Hospitalizations Within the Past 30 Days: no previous admission in last 30 days Patient receiving hospital care under Inpatient status. Admission order reviewed. Health/Prescription Coverage: Primary Insurance: [employer] [place] Payor: [employer] [place] / Plan: [facility] [place] EXCHANGE / Product Type: *No Product type* / Secondary Insurance: N/A ; Prescription Coverage: Yes Preferred Pharmacy: [id number] - [place], [place] - [address] [facility] [address] [facility] - [place], [place] - [address] [facility] [address] [facility] [address] Advance Care Planning: Attempt Cardiopulmonary Resuscitation - Inpatient <no information> -Advanced Directive: No, need to discuss (Referral sent to O[facility] - Air Tool Operator) Current Functional Ability: Independent Functional Status Prior to Admission: Independent Home Environment: Others in the home: spouse (Lives w/ (Boby)). Current Living Arrangements: home/apartment/condo. Accessibility Concerns:1.5 story home (steps w/ railings). 5-6 ADAN home. No concerns. Current DME: respiratory supplies ([employer] ([employer] [address] [address] Social & Family Supports: All names listed [...] Tasha aguayo, when medically ready. Registered Nurse Pastry Mixer / Supervisor Power Reactor will continue to follow patient???s progress and [...] gtt infusing. Bedside echo & EKG done. [place] MD made aware of K2.9; repleted w/ 40mEq KCl Q4. NPO for C. Fall and safety precautions in placed. Hourly [...] PM EST Office Visit Cardiology at [address] [place] [address] Jaspreet Kinsey MD [facility] [place] [address] documented as of this encounter Procedures Procedure [...] species suggesting mucosal contamination. (A) [facility] Urine 02/11/2023 9:30 AM EST 02/11/2023 1:19 PM EST Narrative Resulting Agency Comment Spec In Lab Heidy Walker MD MICROBIOLOGY - GENER AL ORDERABLES [facility] [address] * (ABNORMAL) Urinalysis Microscopic Exam (02/11/2023 9:30 AM EST) RBC, Urine 1 0 - 4 /HPF [facility] WBC, Urine 29(H) 0 - 5 /HPF [facility] Bacteria, Urine Few(A) None /HPF [facility] Squamous Epithelial Cells Raw Data, Urine 1 <=4 /HPF [facility] Transitional Epithelial Cells, Urine 2(H) <=1 /HPF [facility] Hyaline Casts, Urine 2 0 - 2 /LPF [facility] Calcium Oxalate Crystal, Urine Moderate( A) None /HPF [facility] Urine Urine / Unknown 02/11/2023 9 :30 AM EST 02/11/2023 10:33 AM EST Narrative Resulting Agency Comment Spec In Lab Heidy Walker MD URINE ORDERABLES Performing Organization Address City/[facility]/ZIP Co de Phone Number [facility] [address] * (ABNORMAL) Urinalysis with reflex Culture (02/11/2023 9:30 AM EST) Glucose, Urine Dipstick 500(Critical ) Negative mg/dL [facility] Comment: Urinalysis result NOT critical without a combination of Glucose greater than or equal to 500 mg/dL AND Ketones greater than or equal to 80 mg/dL Protein, Urine Dipstick Negative Negative mg/dL [facility] Bilirubin, Urine Dipstick Negative Negative mg/dL [facility] Comment: Clinical correlation required for positive Urine Bilirubin results as false positive may occur with some drugs and drug related products. If a false positive is suspected a serum total bilirubin should be considered if clinically indicated. Urobilinogen, Urine Dipstick Normal Normal mg/dL [facility] pH, Urn (dipstick) 5.5 5.0 - 8.0 [facility] Blood, Urine Dipstick Negative Negative mg/dL [facility] Ketone, Urine Dipstick Trace(A) Negative mg/dL [facility] Nitrite, Urine Dipstick Negative Negative [facility] Leukocytes, Urine Dipstick Moderate(A) Negative mcL [facility] Appearance, Urine Dipstick Cloudy(A) Clear [facility] Specific [place] Urine Automated 1.029 1.005 - 1.030 [facility] Color, Urine Dipstick Dark Yellow Yellow [facility] Reflex to Culture Yes [facility] Urine Urine / Unknown 02/11/2023 9 :30 AM EST 02/11/2023 10:32 AM EST Narrative Resulting Agency Comment Spec In Lab Heidy Walker MD URINE ORDERABLES Performing Organization Address City/[facility]/ZIP Co de Phone Number [facility] [address] * EKG 12 Lead (02/11/2023 6:07 AM EST) Ventricular rate 47 BPM MUSE SYSTEM Atrial Rate 47 BPM MUSE SYSTEM P-R Interval 200 ms MUSE SYSTEM QRS Duration 88 ms MUSE SYSTEM Q-T Interval 522 ms MUSE SYSTEM QTC Calculated (Bezet) 461 ms MUSE SYSTEM Calculated P [place] 36 degrees MUSE SYSTEM Calculated R [place] 48 degrees MUSE SYSTEM Calculated T [place] 12 degrees MUSE SYSTEM INTERPRETATION Sinus bradycardia Possible Left atrial enlargement Possible Lateral infarct (cited on or before 08-FEB-2023) Long QT interval Abnormal ECG When compared with ECG of 10-FEB-2023 11:44, No significant change was found I personally reviewed the tracing and edited the fellows interpretation Confirmed by fellow MD Rosalinda, Alejandro ([id number]) on 02/11/2023 2:15:46 PM Confirmed by Kai Haider ([id number]) on 02/11/2023 4:16:20 PM MUSE SYSTEM 02/11/2023 6:07 AM EST 02/11/2023 4:16 PM EST Itz Bhardwaj MD ECG ORDERABLES MUSE SYSTEM * Differential, Automated (02/11/2023 3:41 AM EST) Neutrophil % 53.9 % [facility] Neutrophil Absolute 3.50 1.70 - 6.10 x10(3)/[facility] Lymph % 31.5 % [facility] Lymphocytes Abs 2.0 0.9 - 3.2 x10(3)/[facility] Monocyte % 8.9 % [facility] Monocyte Abs 0.6 0.3 - 0.9 x10(3)/[facility] Eos % 4.9 % [facility] Eosinophils Abs 0.3 0.0 - 0.4 x10(3)/[facility] Basophil % 0.6 % [facility] Baso Absolute 0.0 0.0 - 0.1 x10(3)/[facility] Immature Gran % 0.20 % [facility] Comment: Immature granulocytes(IG's)percentage and absolute count will include metamyelocytes, myelocytes, and promyelocytes. Blood smears from CBCs yielding IG's will be scanned manually for concordance. If this scan disagrees with the automated IG or if promyelocytes are noted, a manual differential will be performed. Immature Gran Absolute 0.01 0.00 - 0.04 x10(3)/[facility] Blood 02/11/2023 3:41 AM EST 02/11/2023 4:01 AM EST Narrative Resulting Agency Comment Spec In Lab German Bianchi MD HEMATOLOGY ORDERABL ES Performing Organization Address [facility] Co de Phone Number [facility] [address] * Hemogram (02/11/2023 3:41 AM EST) White Blood Cell 6.5 4.0 - 9.5 x10(3)/[facility] Red Blood Cell 4.55 4.00 - 5.21 x10(6)/[facility] Hemoglobin 14.4 11.7 - 15.5 g/dL [facility] Hematocrit 42.9 35.7 - 45.8 % [facility] Mean Cell Volume 94.3 82.6 - 94.4 fL [facility] Mean Cell Hemoglobin 31.6 27.1 - 32.0 pg [facility] Mean Cell Hemoglobin Concentration 33.6 31.7 - 35.0 g/dL [facility] Platelet 240 145 - 357 x10(3)/[facility] RDW Standard Deviation 42.9 37.0 - 46.0 fL [facility] RDW coefficient of variation 12.4 11.5 - 14.1 % [facility] Mean Platelet Volume 11.0 7.6 - 12.9 fL [facility] NRBC% auto 0.0 % [facility] NRBC Absolute 0.000 0.000 - 0.000 x10(3)/[facility] Blood 02/11/2023 3:41 AM EST 02/11/2023 4:01 AM EST Narrative Resulting Agency Comment Spec In Lab German Bianchi MD HEMATOLOGY ORDERABL ES Performing Organization Address [facility] Co de Phone Number [facility] [address] * Magnesium (02/11/2023 3:41 AM EST) Magnesium 0.91 0.69 - 1.07 mmol/L [facility] Blood 02/11/2023 3:41 AM EST 02/11/2023 4:01 AM EST Narrative Resulting Agency Comment Spec In Lab Bobby Edmonds MD CHEMISTRY ORDERABLES [facility] [address] * (ABNORMAL) Basic Metabolic Panel (non-fasting) (02/11/2023 3:41 AM EST) Glucose 97 65 - 199 mg/dL [facility] Comment:Diabetes: >=200 mg/d L plus symptoms Blood Urea Nitrogen 23(H) 8 - 18 mg/dL [facility] Creatinine 1.07 0.70 - 1.20 mg/dL [facility] Sodium 138 135 - 145 mmol/L [facility] Potassium 4.0 3.5 - 5.0 mmol/L [facility] Comment: Please note: ??Patients with WBC >100,000 may have falsely elevated Potassium levels. ??For accurate Potassium quantification in these patients send serum separator tube (gold top) for subsequent determinations. ??Contact the Clinical Chemistry Laboratory if there are any questions. Chloride 109(H) 98 - 107 mmol/L [facility] Carbon Dioxide 17(L) 22 - 31 mmol/L [facility] Anion Gap 12 5 - 15 mmol/L [facility] Calcium 9.1 8.5 - 10.5 mg/dL [facility] Est Glomerular Filtration Rate 62 >=60 mL/min/1. 73 m?? [facility] Comment: This patient's estimated GFR was [...] Edmonds MD CHEMISTRY ORDERABLES Performing Organization Address [facility] [place] [place] [address] * Differential, Automated (02/10/2023 3:46 AM EST) Neutrophil % 59.8 % [facility] Neutrophil Absolute 4.01 1.70 - 6.10 x10(3)/[facility] Lymph % 27.5 % [facility] Lymphocytes Abs 1.8 0.9 - 3.2 x10(3)/[facility] Monocyte % 8.5 % [facility] Monocyte Abs 0.6 0.3 - 0.9 x10(3)/[facility] Eos % 3.7 % [facility] Eosinophils Abs 0.2 0.0 - 0.4 x10(3)/[facility] Basophil % 0.4 % [facility] Baso Absolute 0.0 0.0 - 0.1 x10(3)/[facility] Immature Gran % 0.10 % [facility] Comment: Immature granulocytes(IG's)percentage and absolute count will include metamyelocytes, myelocytes, and promyelocytes. Blood smears from CBCs yielding IG's will be scanned manually for concordance. If this scan disagrees with the automated IG or if promyelocytes are noted, a manual differential will be performed. Immature Gran Absolute 0.01 0.00 - 0.04 x10(3)/[facility] Blood 02/10/2023 3:46 AM EST 02/10/2023 4:12 AM EST Narrative Resulting Agency Comment Spec In Lab German Bianchi MD HEMATOLOGY ORDERABL ES Performing Organization Address [facility] [place] [place] [address] * Hemogram (02/10/2023 3:46 AM EST) White Blood Cell 6.7 4.0 - 9.5 x10(3)/[facility] Red Blood Cell 4.60 4.00 - 5.21 x10(6)/[facility] Hemoglobin 14.4 11.7 - 15.5 g/dL [facility] Hematocrit 42.2 35.7 - 45.8 % [facility] Mean Cell Volume 91.7 82.6 - 94.4 fL [facility] Mean Cell Hemoglobin 31.3 27.1 - 32.0 pg [facility] Mean Cell Hemoglobin Concentration 34.1 31.7 - 35.0 g/dL [facility] Platelet 246 145 - 357 x10(3)/[facility] RDW Standard Deviation 42.3 37.0 - 46.0 fL [facility] RDW coefficient of variation 12.6 11.5 - 14.1 % [facility] Mean Platelet Volume 11.1 7.6 - 12.9 fL [facility] NRBC% auto 0.0 % [facility] NRBC Absolute 0.000 0.000 - 0.000 x10(3)/[facility] Blood 02/10/2023 3:46 AM EST 02/10/2023 4:12 AM EST Narrative Resulting Agency Comment Spec In Lab German Bianchi MD HEMATOLOGY ORDERABL ES Performing Organization Address City/[facility]/ZIP Co de Phone Number [facility] [address] * Magnesium (02/10/2023 3:46 AM EST) Magnesium 1.01 0.69 - 1.07 mmol/L [facility] Blood 02/10/2023 3:46 AM EST 02/10/2023 4:12 AM EST Narrative Resulting Agency Comment Spec In Lab Bobby Edmonds MD CHEMISTRY ORDERABLES Performing Organization Address City/[facility]/ZIP Co de Phone Number [facility] [address] * (ABNORMAL) Basic Metabolic Panel (non-fasting) (02/10/2023 3:46 AM EST) Glucose 103 65 - 199 mg/dL [facility] Comment:Diabetes: >=200 mg/d L plus symptoms Blood Urea Nitrogen 20(H) 8 - 18 mg/dL [facility] Creatinine 1.31(H) 0.70 - 1.20 mg/dL [facility] Sodium 141 135 - 145 mmol/L [facility] Potassium 3.4(L) 3.5 - 5.0 mmol/L [facility] Comment: Please note: ??Patients with WBC >100,000 may have falsely elevated Potassium levels. ??For accurate Potassium quantification in these patients send serum separator tube (gold top) for subsequent determinations. ??Contact the Clinical Chemistry Laboratory if there are any questions. Chloride 105 98 - 107 mmol/L [facility] Carbon Dioxide 23 22 - 31 mmol/L [facility] Anion Gap 13 5 - 15 mmol/L [facility] Calcium 9.2 8.5 - 10.5 mg/dL [facility] Est Glomerular Filtration Rate 49(L) >=60 mL/min/1. 73 m?? [facility] Comment: This patient's estimated GFR was [...] In Lab Bobby Edmonds MD CHEMISTRY ORDERABLES [facility] [place] [address] * Potassium (02/09/2023 2:46 PM EST) Potassium 4.0 3.5 - 5.0 mmol/L [facility] Comment: Please note: ??Patients with WBC >100,000 may have falsely elevated Potassium levels. ??For accurate Potassium quantification in these patients send serum separator tube (gold top) for subsequent determinations. ??Contact the Clinical Chemistry Laboratory if there are any questions. Blood 02/09/2023 2:46 PM EST 02/09/2023 2:58 PM EST Narrative Resulting Agency Comment Spec In Lab Itz Bhardwaj MD CHEMISTRY ORDERABL ES [facility] [place] [address] * ECHO LMTD W CONTRAST W LMTD SPEC DOPP COLOR DOPP (02/09/2023 9:01 AM EST) Anatomical Region Laterality Modality Cardiac Other 02/09/2023 8:19 AM EST Narrative 02/09/2023 9:39 AM EST 1 [place] [address] ? Echocardiogram Report Name: JUDE LOIDA ? Study Date: 02/09/2023 08:19 AMBP: 98/57 mmHg ? Patient Location: [facility] 04[facility] A : 1970 ? Height: 163 cm ? Account: [id number] Age: 52 yrs ? Weight: 99 kg Gender: Female ?BSA: 2.0 m2 Ordering Physician: BOBBY EDMONDS Referring Physician: AJ HARTMAN Performed By: Aaron Herr RDCS Reason For Study: NSTEMI (non-ST elevated myocardial infarction) Interpreting Fellow: Ciro Lovell. Exam Location: [facility]. Interpretation Summary Left ventricular systolic function is [...] that was done by the on-call overnight managed care analyst, there is no significant change in biventricular function. Procedure Limited - 35649. Image enhancement Definity was used for left [...] Note Manish Benitez MD - 02/09/2023 1 [place] [address] Echocardiogram Report Name: LOIDA MADRIGAL Study Date: 308:19 AMBP: 98/57 mmHg Patient Location: [id number] A : 1970 Height: 163 cm Account: [id number] Age: 52 yrs Weight: 99 kg Gender: Female BSA: 2.0 m2 Ordering Physician: BOBBY EDMONDS Referring Physician: AJ HARTMAN Performed By: Aaron Herr RDCS Reason For Study: NSTEMI (non-ST elevated myocardial infarction) Interpreting Fellow: Ciro Lovell. Exam Location: [facility]. Interpretation Summary Left ventricular systolic function is [...] change in biventricular function. Procedure Limited - 93822. Image enhancement Definity was used for leftventricular [...] * (ABNORMAL) Troponin (02/09/2023 8:01 AM EST) Troponin-T, High Sensitivity 27(H) <=14 ng/L [facility] Comment: This patient's troponin T concentration [...] value can be found in the [facility] Laboratory Test Catalog Troponin - [facility] Laboratory Test Catalog Reference: Fourth [place] Definition of Myocardial Infarction. Journal of the [place] [employer] 2018;72:8398-8216 Blood 02/09/2023 8:01 AM EST 02/09/2023 8:06 AM EST Narrative Resulting Agency Comment Spec In Lab Itz Bhardwaj MD CHEMISTRY ORDERABL ES Performing Organization Address City/[facility] Co de Phone Number [facility] [address] * CRP, acute inflammation (02/09/2023 3:55 AM EST) C-Reactive Protein <3.0 <=4.9 mg/L [facility] Blood Venous Draw / Unknown 02/09/2023 3:55 AM EST 02/09/2023 4:07 AM EST Narrative Resulting Agency Comment Spec In Lab Grady Metcalf MD CHEMISTRY ORDERABLES Performing Organization Address City/[facility]/ZIP Co de Phone Number [facility] [place] [address] * Sedimentation rate (02/09/2023 3:55 AM EST) Sedimentation Rate Automated 15 2 - 39 mm/hr [facility] Comment: Effective February 15, 2019 new capillary photometric technology has resulted in a change in reference ranges. It is recommended that each ESR result be reviewed with its own age appropriate reference range. Blood Venous Draw / Unknown 02/09/2023 3:55 AM EST 02/09/2023 4:06 AM EST Narrative Resulting Agency Comment Spec In Lab Grady Metcalf MD HEMATOLOGY ORDERABLE S [facility] [address] * Differential, Automated (02/09/2023 3:55 AM EST) [facility] Neutrophil % 54.3 % [facility] Neutrophil Absolute 3.66 1.70 - 6.10 x10(3)/[facility] LAB[facility]AT[facility] Lymph % 32.4 % [facility] Lymphocytes Abs 2.2 0.9 - 3.2 x10(3)/[facility] Monocyte % 8.3 % [facility] Monocyte Abs 0.6 0.3 - 0.9 x10(3)/[facility] Eos % 4.1 % [facility] Eosinophils Abs 0.3 0.0 - 0.4 x10(3)/[facility] Basophil % 0.6 % [facility] Baso Absolute 0.0 0.0 - 0.1 x10(3)/[facility] Immature Gran % 0.30 % [facility] Comment: Immature granulocytes(IG's)percentage and absolute count will include metamyelocytes, myelocytes, and promyelocytes. Blood smears from CBCs yielding IG's will be scanned manually for concordance. If this scan disagrees with the automated IG or if promyelocytes are noted, a manual differential will be performed. Immature Gran Absolute 0.02 0.00 - 0.04 x10(3)/[facility]ATORY Blood 02/09/2023 3:55 AM EST 02/09/2023 4:06 AM EST Narrative Resulting Agency Comment Spec In Lab German Bianchi MD HEMATOLOGY ORDERABL ES Performing Organization Address City/[facility] Co de Phone Number [facility] [address] * Hemogram (02/09/2023 3:55 AM EST) White Blood Cell 6.8 4.0 - 9.5 x10(3)/[facility]ATORY Red Blood Cell 4.53 4.00 - 5.21 x10(6)/[facility] Hemoglobin 14.2 11.7 - 15.5 g/dL [facility] Hematocrit 41.2 35.7 - 45.8 % [facility] Mean Cell Volume 90.9 82.6 - 94.4 fL [facility] Mean Cell Hemoglobin 31.3 27.1 - 32.0 pg [facility] Mean Cell Hemoglobin Concentration 34.5 31.7 - 35.0 g/dL [facility] Platelet 237 145 - 357 x10(3)/[facility]AT[facility] RDW Standard Deviation 41.1 37.0 - 46.0 fL [facility] RDW coefficient of variation 12.4 11.5 - 14.1 % [facility] Mean Platelet Volume 11.2 7.6 - 12.9 fL [facility] NRBC% auto 0.0 % [facility] NRBC Absolute 0.000 0.000 - 0.000 x10(3)/[facility] Blood 02/09/2023 3:55 AM EST 02/09/2023 4:06 AM EST Narrative Resulting Agency Comment Spec In Lab German Bianchi MD HEMATOLOGY ORDERABL ES Performing Organization Address City/[facility]/ZIP Co de Phone Number [facility] [address] * (ABNORMAL) Heparin (unfractionated) Level (02/09/2023 3:55 AM EST) UF Heparin 1.44(Crit ical) IU/mL [facility] Comment: Critical Result called by ?? [...] MD HEMATOLOGY ORDERABLE S Performing Organization Address [facility] Co de Phone Number [facility] [address] * Magnesium (02/09/2023 3:55 AM EST) Magnesium 1.04 0.69 - 1.07 mmol/L [facility] Blood 02/09/2023 3:55 AM EST 02/09/2023 4:06 AM EST Narrative Resulting Agency Comment Spec In Lab Bobby Edmonds MD CHEMISTRY ORDERABLES Performing Organization Address [facility] Co de Phone Number [facility] [address] * (ABNORMAL) Basic Metabolic Panel (non-fasting) (02/09/2023 3:55 AM EST) Glucose 103 65 - 199 mg/dL [facility] Comment:Diabetes: >=200 mg/d L plus symptoms Blood Urea Nitrogen 19(H) 8 - 18 mg/dL [facility] Creatinine 1.13 0.70 - 1.20 mg/dL [facility] Sodium 142 135 - 145 mmol/L [facility] Comment:result rechecked-GH Potassium 2.9(Criti edy) 3.5 - 5.0 mmol/L [facility] Comment: Called by: , Read back by: Zoila Bhatt, Date/Time:02/09/23 04:43. Please note: ??Patients with WBC >100,000 may have falsely elevated Potassium levels. ??For accurate Potassium quantification in these patients send serum separator tube (gold top) for subsequent determinations. ??Contact the Clinical Chemistry Laboratory if there are any questions. Chloride 103 98 - 107 mmol/L [facility] Comment:result rechecked- Carbon Dioxide 24 22 - 31 mmol/L [facility] Comment:result rechecked- Anion Gap 15 5 - 15 mmol/L [facility] Calcium 9.4 8.5 - 10.5 mg/dL [facility] Est Glomerular Filtration Rate 58(L) >=60 mL/min/1. 73 m?? [facility] Comment: This patient's estimated GFR was [...] In Lab Bobby Edmonds MD CHEMISTRY ORDERABLES [facility] [address] * Differential, Automated (02/08/2023 10:08 PM EST) Neutrophil % 55.7 % [facility] Neutrophil Absolute 4.29 1.70 - 6.10 x10(3)/[facility]AT[facility] Lymph % 33.0 % [facility] Lymphocytes Abs 2.5 0.9 - 3.2 x10(3)/[facility] Monocyte % 7.7 % [facility] Monocyte Abs 0.6 0.3 - 0.9 x10(3)/[facility] Eos % 2.9 % [facility] Eosinophils Abs 0.2 0.0 - 0.4 x10(3)/[facility] Basophil % 0.6 % [facility] Baso Absolute 0.0 0.0 - 0.1 x10(3)/[facility] Immature Gran % 0.10 % [facility] Comment: Immature granulocytes(IG's)percentage and absolute count will include metamyelocytes, myelocytes, and promyelocytes. Blood smears from CBCs yielding IG's will be scanned manually for concordance. If this scan disagrees with the automated IG or if promyelocytes are noted, a manual differential will be performed. Immature Gran Absolute 0.01 0.00 - 0.04 x10(3)/[facility] Blood 02/08/2023 10:0 8 PM EST 02/08/2023 10:18 PM EST Narrative Resulting Agency Comment Spec In Lab German Bianchi MD HEMATOLOGY ORDERABL ES [facility] [address] * (ABNORMAL) Hemogram (02/08/2023 10:08 PM EST) White Blood Cell 7.7 4.0 - 9.5 x10(3)/mc L [facility] Red Blood Cell 4.93 4.00 - 5.21 x10(6)/mc L [facility] Hemoglobin 15.6(H) 11.7 - 15.5 g/dL [facility] Hematocrit 46.9(H) 35.7 - 45.8 % [facility] Mean Cell Volume 95.1(H) 82.6 - 94.4 fL [facility] Mean Cell Hemoglobin 31.6 27.1 - 32.0 pg [facility] Mean Cell Hemoglobin Concentration 33.3 31.7 - 35.0 g/dL [facility] Platelet 201 145 - 357 x10(3)/ L [facility] RDW Standard Deviation 45.0 37.0 - 46.0 fL [facility] RDW coefficient of variation 12.8 11.5 - 14.1 % [facility] Mean Platelet Volume 11.3 7.6 - 12.9 fL [facility] NRBC% auto 0.0 % [facility] NRBC Absolute 0.000 0.000 - 0.000 x10(3)/mc L [facility] Blood 02/08/2023 10:0 8 PM EST 02/08/2023 10:18 PM EST Narrative Resulting Agency Comment Spec In Lab German Bianchi MD HEMATOLOGY ORDERABL ES [facility] [address] * (ABNORMAL) Troponin (02/08/2023 10:08 PM EST) Troponin-T, High Sensitivity 23(H) <=14 ng/L [facility] Comment: This patient's troponin T concentration [...] value can be found in the [facility] Laboratory Test Catalog Troponin - [facility] Laboratory Test Catalog Reference: Fourth [place] Definition of Myocardial Infarction. Journal of the [place] [employer] 2018;72:4540-3451 Blood 02/08/2023 10:0 8 PM EST 02/08/2023 10:18 PM EST Narrative Resulting Agency Comment Spec In Lab Bobby Edmonds MD CHEMISTRY ORDERABLES Performing Organization Address City/[facility]/ZIP Co de Phone Number [facility] [address] * (ABNORMAL) Magnesium (02/08/2023 10:08 PM EST) Magnesium 1.15(H) 0.69 - 1.07 mmol/L [facility] Blood 02/08/2023 10:0 8 PM EST 02/08/2023 10:18 PM EST Narrative Resulting Agency Comment Spec In Lab Bobby Edmonds MD CHEMISTRY ORDERABLES Performing Organization Address [facility] Co de Phone Number [facility] [address] * (ABNORMAL) Basic Metabolic Panel (non-fasting) (02/08/2023 10:08 PM EST) Glucose 106 65 - 199 mg/dL [facility] Comment:Diabetes: >=200 mg/d L plus symptoms Blood Urea Nitrogen 17 8 - 18 mg/dL [facility] Creatinine 0.96 0.70 - 1.20 mg/dL [facility] Sodium 151(H) 135 - 145 mmol/L [facility] Potassium 3.4(L) 3.5 - 5.0 mmol/L [facility] Comment: Please note: ??Patients with WBC >100,000 may have falsely elevated Potassium levels. ??For accurate Potassium quantification in these patients send serum separator tube (gold top) for subsequent determinations. ??Contact the Clinical Chemistry Laboratory if there are any questions. Chloride 91(L) 98 - 107 mmol/L [facility] Carbon Dioxide 12(L) 22 - 31 mmol/L [facility] Anion Gap 48(H) 5 - 15 mmol/L [facility] Calcium 8.9 8.5 - 10.5 mg/dL [facility] Est Glomerular Filtration Rate 71 >=60 mL/min/1. 73 m?? [facility] Comment: This patient's [...] Edmonds MD CHEMISTRY ORDERABLES Performing Organization Address City/[facility]/ZIP Co de Phone Number [facility] [address] * (ABNORMAL) pro-Brain Natriuretic Peptide (02/08/2023 10:08 PM EST) NT-proBNP 850(H) <=124 pg/mL [facility] Blood 02/08/2023 10:0 8 PM EST 02/08/2023 10:18 PM EST Narrative Resulting Agency Comment Spec In Lab Bobby Edmonds MD CHEMISTRY ORDERABLES Performing Organization Address [facility] Co de Phone Number [facility] [address] * TSH (02/08/2023 10:08 PM EST) Thyroid Stimulating Hormone 4.00 0.27 - 4.20 mcIU/mL [facility] Comment: Reference Interval (mcIU/mL): Females: ??First Trimester: 0.23-3.88 ??Second Trimester: 0.22-3.90 ??Third Trimester: 0.44-4.66 Blood 02/08/2023 10:0 8 PM EST 02/08/2023 10:18 PM EST Narrative Resulting Agency Comment Spec In Lab Bobby Edmonds MD CHEMISTRY ORDERABLES Performing Organization Address City/[facility]/ZIP Co de Phone Number [facility] [place] [address] * EKG 12 Lead (02/08/2023 6:38 PM EST) Ventricular rate 56 BPM MUSE SYSTEM Atrial Rate 56 BPM MUSE SYSTEM P-R Interval 182 ms MUSE SYSTEM QRS Duration 88 ms MUSE SYSTEM Q-T Interval 498 ms MUSE SYSTEM QTC Calculated (Bezet) 480 ms MUSE SYSTEM Calculated P [place] 27 degrees MUSE SYSTEM Calculated R [place] 40 degrees MUSE SYSTEM Calculated T [place] 15 degrees MUSE SYSTEM INTERPRETATION Sinus bradycardia [...] EST Unknown ECG ORDERABLES Performing Organization Address [facility] Co de Phone Number MUSE [...] Sublingual, EVERY 5 MIN PRN, Starting on 02/08/23 at 1836, Until Aura 02/11/23 at 1807, [...] RN)2102 (Given - Provider: Zoila Bhatt RN) 09 [...] 2110 (Given - Provider: Zoila Bhatt, ERWIN) potassium chloride ER (Klor-Con M) crystal tablet [...] Zoila Bhatt RN)0937 (Given - Provider: Opal Traore, ERWIN)1402 (Given - Provider: Opal Traore, ERWIN) potassium chloride ER (Klor-Con M) crystal tablet [...] Routine 1538 (Given - Provider: Opal Traore RN)2103 (Given - Provider: Zoila Bhatt RN) 1607 (Given - Provider: Opal Traore, ERWIN)2110 (Given - Provider: Zoila Bhatt RN) sodium chloride 0.9 % (flush) (BD PosiFlush Normal Saline 0.9) flush 5 mL 5 mL, Intravenous, 2 TIMES DAILY, First dose on Wed02/08/23 at 2215, Until Discontinued, Routine 0942 (Given - Provider: Opal Traore RN)2103 (Given - Provider: Zoila Bhatt RN) 901 (Given - Provider: Opal Traore RN)2111 (Given - Provider: Zoila Bhatt RN) 08 (Given - Provider: Malia Mcintyre, ERWIN) spironolactone (Aldactone) tablet 25 mg 25 mg, Oral, DAILY, First dose on Wed02/09/23 at 1015, Until Discontinued, DO NOT SPLIT, CRUSH OR OPEN, Routine 09 (Given - Provider: Opal Traore RN) 09 (Given - Provider: Opal Traore RN) 08 (Given - Provider: Malia Mcintyre RN) topiramate (Topamax) tablet 100 mg 100 mg, Oral, NIGHTLY, First dose on Wed02/09/23 at 2100, Until Discontinued, Routine 2102 (Given - Provider: Zoila Bhatt RN) 2110 (Given - Provider: Zoila Bhatt RN) torsemide (Demadex) tablet 20 mg 20 mg, Oral, DAILY, First dose on Wed02/11/23 at 0900, Until Discontinued, Routine 08 (Given - Provider: Malia Mcintyre RN) Continuous [...] Routine documented in this encounter Care Teams Agency Operator Relationship Specialty Start Date End Date Polo Pearce PA [address] [place] [address] PCP - General Internal Medicine 06/09/21 documented as of this encounter
--- OUTSIDE RECORDS SUMMARY | 2024-01-24 12:37 | XMS_ITS | Encounter Summary ---
[place] [address] Care Team Providers Care Claim Examiner Name Role Phone Polo Pearce Primary Care Provider [phone] Encounter Details Date Type Department Care Team (Late st Contact Info) Description 02/08/2023 Orders [place] [id number] Unknown None Social History Tobacco Use Types Packs/Day Years Used Date Smoking Tobacco: Never Smokeless Tobacco: Never Alcohol Use Standard Drinks/Week Comments Never 0 (1 standard drink = 0.6 oz pur e alcohol) [facility] Utilities Answer Date Recorded In the past 12 months has e [employer], gas, oil, or water [employer] threatened to shut off services in your [...] slept in a [facility] (including now)? No 02/10/2023 Sex and Gender Information Value Date Recorded Sex Assigned at Not on file Gender Identity Not on file Sexual Orientation Not on file documented as of this encounter Plan of Treatment Upcoming Encounters Date Type Department Care Team (Late st Contact Info) Description 02/10/2024 1:00 PM EST Office Visit Cardiology at [address] [phone] Jaspreet Kinsey MD [facility] [place] [address] documented as of this encounter Procedures Procedure Name Priority Date/Time Associated Diagnosis Comments ECHOCARDIOGRAM TRANSTHORACIC Routine 02/08/2023 11:40 PM EST documented in this encounter Results * Echocardiogram Transthoracic (02/08/2023 11:40 PM EST) Anatomical Region Laterality Modality Cardiac Other 02/08/2023 11:4 0 PM EST Narrative 02/10/2023 3:09 PM EST [address] [place] [id number] ? Echocardiogram Report Name: LOIDA ROQUE ?Study [...] without a pericardial effusion. Procedure Limited - 38090. Suboptimal quality. There is normal sinus rhythm. [...] Note Willy Gómez MD - 02/10/2023 [address] [id number] Echocardiogram Report Name: LOIDA ROQUE Study Date: [...] without a pericardial effusion. Procedure Limited - 13019. Suboptimal quality. There is normal sinus rhythm. [...] on filedocumented in this encounter Care Teams Claim Examiner Relationship Specialty Start Date End Date Polo Pearce PA [address] [place] [address] PCP - General Internal Medicine 06/09/21 documented as of this encounter
--- OUTSIDE RECORDS SUMMARY | 2024-01-24 12:37 | XMS_ITS | Encounter Summary ---
[place] [address] Care Team Providers Care Scientific Writer Name Role Phone Polo Pearce Primary Care Provider [phone] Reason for Visit * Auth/Cert (Routine) Specialty Diagnoses / Procedures Referred By Contac t Referred To Contact Diagnoses NSTEMI (non-ST elevated myocardial infarction) NSTEMI Procedures EMERGENCY IPI Susannah Gómez MD [facility] [place] [address] [facility] Referral ID Status Reason Start Date Expiration Date Visits Re quested Visits Authorized [id number] 1 1 Encounter Details Date Type Department Care Team (Latest Contact Info) Description 09/26/2022 3:42 PM EDT - 09/28/2022 5:02 PM EDT Hospital Encounter Heart and Vascular Unit Level 4 [place] [id number] Susannah Gómez MD [facility] [place] [address] Non-ST elevation myocardial infarction (NSTEMI) [...] to the point that she presented to [facility] at around 630 or 7 AM this morning. At OSH: Patient presented with soft blood pressures of 90s/50s which improved with fluids. Initial troponins above 800. EKG with sinus bradycardia with inferolateral ST segment depressions, possibly increased from prior. OSH provider loaded full dose aspirin and started therapeutic Lovenox prior to transfer. On presentation to [facility] patient notes some constant chest pain that is approx 5/10 in severity centered over left chest. She has no shortness of breath or PND. On a regular day patient could walk about 30 feet on a flat surface before becoming shortness of breath. She notes she is working with a outreach nurse. She is under a considerable amount of [...] days. Refills: 0 fluticasone propionate 50 mcg/actuation [place], Suspension Commonly known as: Flonase 1 spray [...] 4:00 PM Jaspreet Kinsey MD Cardiology at [place] Arrive at: [facility] [address] [phone] 10/20/2022 8:00 AM Florencia Callahan [place] Vascular Lab at [facility] Arrive at: [facility] [phone] 10/20/2022 9:00 AM Umberto Abbott MD Vascular Surgery at [facility] Arrive at: [facility] [phone] Provider Contact Information: JOCY [address] [facility] [address] Discharge References/Attachments: Discharge References/Attachments None documented in [...] October 08, 2022 at 4:00 pm in [place]). MEDICATION INSTRUCTIONS: At discharge, START - amlodipine [...] as needed. fluticasone propionate (FLONASE) 50 mcg/actuation [place], Suspension 1 spray by Each Nare route [...] EDT CARDIOLOGY S2 Daily Progress Note Pager [phone] Admit Date: 09/26/2022 Encounter Date: September 27, [...] 29-35-30. Chest pain improved en route to [facility], some improvement with nitro. Overnight: No acute [...] to the point that she presented to [facility] at around 630 or 7 AM this morning. At OSH: Patient presented with soft blood pressures of 90s/50s which improved with fluids. Initial troponins above 800. EKG with sinus bradycardia with inferolateral ST segment depressions, possibly increased from prior. OSH provider loaded full dose aspirin and started therapeutic Lovenox prior to transfer. On presentation to [facility] patient notes some constant chest pain that is approx 5/10 in severity centered over left chest. She has no shortness of breath or PND. On a regular day patient could walk about 30 feet on a flat surface before becoming shortness of breath. She notes she is working with a outreach nurse. She is under a considerable amount of [...] 30 DAYS fluticasone propionate (FLONASE) 50 mcg/actuation [place], Suspension 1 spray, Each Nare, DAILY gabapentin [...] Medicine, PGY-1 Cardiology M1-S1, #3011 Cardiology M1-S2, #5909 09/26/2022, 6:07 PM Cardiology Staff Addendum Loida [...] COVID test: Lab Results Component Value Date [id number] Not Detected 06/13/2021 Present on Admission: NSTEMI (non-ST elevated myocardial infarction) Hospitalizations Within the Past 30 Days: no previous admission in last 30 days Patient receiving hospital care under Inpatient status. Admission order reviewed. Health/Prescription Coverage: Primary Insurance: [employer] [place] Payor: [employer] [place] / Plan: [place]ANGE / Product Type: *No Product type* / Secondary Insurance: N/A ; Prescription Coverage: Preferred Pharmacy: [id number] - [place], [place] - [address] [facility] [address] [facility] [address] [place], [place] - [address] [facility] [address] [facility] [address] [facility] [address] Advance Care Planning: Attempt Cardiopulmonary Resuscitation - Inpatient <no information> - Current Functional Ability: Independent Functional Status Prior to Admission: Home Environment: . Current Living Arrangements: home/apartment/condo. Accessibility Concerns: . Current DME: [address] [facility] [address] Social & Family Supports: All names listed [...] private vehicle when medically ready. Registered Nurse Cream Beater / Project Financial Analyst will continue to follow patient???s progress and remain available if situation changes for coordination of care, psychosocial support and/or discharge planning. Office of Care Management Fab GALARZA, RN CM Case Management [phone] * Plan of Care - Antonio Swann [...] PM EST Office Visit Cardiology at [address] [place] [address] Jaspreet Kinsey MD [facility] [place] [address] documented as of this encounter Procedures Procedure [...] this encounter Results * Blood Gas Venous (NL) (09/28/2022 3:39 PM EDT) pH, Venous 7.32 7.32 - 7.42 [facility] PCO2, Venous 45 41 - 51 mmHg [facility] PO2, Venous 30 25 - 40 mmHg [facility] Bicarbonate, Venous 22.8 mmol/L [facility] Base Excess, Venous -3.3 mmol/L [facility] Hgb Blood Gas 15.2 11.7 - 15.5 g/dL [facility] Oxyhemoglobin, Venous 52.4 % [facility] Carboxyhemoglob in, Venous 1.0 % [facility] Comment: Nonsmokers: 0.5-1.5% COHB Smokers: Variable, but usually less than 10% Toxic: 20-30% COHB Lethal: Greater than 60% COHB Methemoglobin, Venous 0.3 <=1.5 % [facility] Na Whole Blood 139 135 - 145 mmol/L [facility] K Whole Blood 4.6 3.5 - 5.0 mmol/L [facility] Comment: Please note: Patients with WBC >100,000 may have falsely elevated Potassium levels. Contact the Clinical Chemistry Laboratory if there are any questions. ICa Whole Blood 1.23 1.15 - 1.33 mmol/L [facility] Comment: Note: ??Total bilirubin higher than 20 mg/dL may lead to falsely low ionized calcium. CL Whole Blood 104 98 - 107 mmol/L [facility] Gluc Whole Bld 87 65 - 199 mg/dL [facility] Comment:Diabetes: >=200 mg/d L plus symptoms Lactate WB 1.3 0.5 - 2.2 mmol/L [facility] Blood Gas Source Venous [facility] Blood Venous Draw / Unknown 09/28/2022 3:39 PM EDT 09/28/2022 3:50 PM EDT Narrative Resulting Agency Comment Spec In Lab Ciro Lovell MD CHEMISTRY ORDERABLES [facility] [place] [address] * EKG 12 Lead (09/28/2022 1:58 PM EDT) Ventricular rate 57 BPM MUSE SYSTEM Atrial Rate 57 BPM MUSE SYSTEM P-R Interval 180 ms MUSE SYSTEM QRS Duration 86 ms MUSE SYSTEM Q-T Interval 414 ms MUSE SYSTEM QTC Calculated (Bezet) 402 ms MUSE SYSTEM Calculated P Orlando 40 degrees MUSE SYSTEM Calculated R [place] 67 degrees MUSE SYSTEM Calculated T Orlando -56 degrees MUSE SYSTEM INTERPRETATION Sinus bradycardia [...] have questions please contact the health animal care giver that requested your imaging first. ? Electronically signed by: Jose Gallegos MD, [facility] ([phone]), at 09/28/2022 4:58 PM Narrative 09/28/2022 4:58 [...] and gender:98%-ile. Reference: Johanna RL, Silva H, Naveedano R, et al. ??Distribution of coronary artery [...] who have questions please contactthe health animal care giver that requested your imaging first. Electronically signed by: Jose Gallegos MD, [facility]([phone]), at 09/28/2022 4:58 PM Susannah Gómez MD IM CT ORDERABLES * (ABNORMAL) Troponin (09/28/2022 6:56 AM EDT) [facility] Signature Troponin-T, High Sensitivity 21(H) <=14 ng/L [facility] Comment: This patient's troponin T [...] troponin value can be found in the [facility] Laboratory Test Catalog Troponin - [facility] Laboratory Test Catalog Reference: Fourth Milam Definition of Myocardial Infarction. Journal of the [place] College of Cardiology 2018;72:3638-9535 Blood 09/28/2022 6:56 AM EDT 09/28/2022 7:01 AM EDT Narrative Resulting Agency Comment Spec In Lab Susannah Gómez MD CHEMISTRY ORDERABLES Performing Organization Address City/State/[facility] Co de Phone Number [facility] [place] [address] * Differential, Automated (09/28/2022 3:49 AM EDT) Neutrophil % 45.9 % [facility] Neutrophil Absolute 2.92 1.70 - 6.10 x10(3)/[facility] Lymph % 40.5 % [facility] Lymphocytes Abs 2.6 0.9 - 3.2 x10(3)/[facility] Monocyte % 8.9 % [facility] Monocyte Abs 0.6 0.3 - 0.9 x10(3)/[facility] Eos % 3.3 % [facility] Eosinophils Abs 0.2 0.0 - 0.4 x10(3)/[facility] Basophil % 1.1 % [facility] Baso Absolute 0.1 0.0 - 0.1 x10(3)/[facility] Immature Gran % 0.30 % [facility] Comment: Immature granulocytes(IG's)percentage and absolute count will include metamyelocytes, myelocytes, and promyelocytes. Blood smears from CBCs yielding IG's will be scanned manually for concordance. If this scan disagrees with the automated IG or if promyelocytes are noted, a manual differential will be performed. Immature Gran Absolute 0.02 0.00 - 0.04 x10(3)/[facility] Blood 09/28/2022 3:49 AM EDT 09/28/2022 4:11 AM EDT Narrative Resulting Agency Comment Spec In Lab Vimal Holman MD HEMATOLOGY ORDERABLE S [facility] [place] [address] * (ABNORMAL) Hemogram (09/28/2022 3:49 AM EDT) [facility] White Blood Cell 6.4 4.0 - 9.5 x10(3)/mc L [facility] Red Blood Cell 4.37 4.00 - 5.21 x10(6)/mc L [facility] Hemoglobin 13.7 11.7 - 15.5 g/dL [facility] Hematocrit 41.6 35.7 - 45.8 % [facility] Mean Cell Volume 95.2(H) 82.6 - 94.4 fL [facility] Mean Cell Hemoglobin 31.4 27.1 - 32.0 pg [facility] Mean Cell Hemoglobin Concentration 32.9 31.7 - 35.0 g/dL [facility] Platelet 224 145 - 357 x10(3)/mc L [facility] RDW Standard Deviation 43.1 37.0 - 46.0 fL [facility] RDW coefficient of variation 12.3 11.5 - 14.1 % [facility] Mean Platelet Volume 11.3 7.6 - 12.9 fL [facility] NRBC% auto 0.0 % [facility] NRBC Absolute 0.000 0.000 - 0.000 x10(3)/mc L [facility] Blood 09/28/2022 3:49 AM EDT 09/28/2022 4:11 AM EDT Narrative Resulting Agency Comment Spec In Lab Vimal Holman MD HEMATOLOGY ORDERABLE S [facility] [place] [address] * (ABNORMAL) Troponin (09/28/2022 3:49 AM EDT) [facility] Troponin-T, High Sensitivity 25(H) <=14 ng/L [facility] Comment: This patient's troponin T [...] troponin value can be found in the [facility] Laboratory Test Catalog Troponin - [facility] Test Catalog Reference: Fourth Milam Definition of Myocardial Infarction. Journal of the [place] College of Cardiology 2018;72:7487-9440 Blood 09/28/2022 3:49 AM EDT 09/28/2022 4:11 AM EDT Narrative Resulting Agency Comment Spec In Lab Susannah Gómez MD CHEMISTRY ORDERABLES Performing Organization Address City/State/[facility] Co de Phone Number [facility] [place] [address] * (ABNORMAL) Basic Metabolic Panel (non-fasting) (09/28/2022 3:49 AM EDT) Pathologist [facility] Glucose 97 65 - 199 mg/dL [facility] Comment:Diabetes: >=200 mg/d L plus symptoms Blood Urea Nitrogen 26(H) 8 - 18 mg/dL [facility] Creatinine 1.01 0.70 - 1.20 mg/dL [facility] Sodium 137 135 - 145 mmol/L [facility] Potassium 4.4 3.5 - 5.0 mmol/L [facility] Comment: Please note: ??Patients with WBC >100,000 may have falsely elevated Potassium levels. ??For accurate Potassium quantification in these patients send serum separator tube (gold top) for subsequent determinations. ??Contact the Clinical Chemistry Laboratory if there are any questions. Chloride 108(H) 98 - 107 mmol/L [facility] Carbon Dioxide 18(L) 22 - 31 mmol/L [facility] Anion Gap 11 5 - 15 mmol/L [facility] Calcium 9.0 8.5 - 10.5 mg/dL [facility] Est Glomerular Filtration Rate 67 >=60 mL/min/1. 73 m?? [facility] Comment: This patient's estimated GFR [...] In Lab Susannah Gómez MD CHEMISTRY ORDERABLES [facility] [place] [address] * XR Chest One View (09/28/2022 3:37 [...] have questions please contact the health animal care giver that requested your imaging first. ? Electronically signed by: Elina Valdez MD, [facility] ??([phone]), at 09/28/2022 8:27 AM Narrative 09/28/2022 8:27 [...] who have questions please contactthe health animal care giver that requested your imaging first. Electronically signed by: Elina Valdez MD, [facility]([phone]), at 09/28/2022 8:27 AM Susannah Gómez MD IMG DX ORDERABLES * EKG 12 Lead (09/28/2022 3:11 AM EDT) Ventricular rate 45 BPM MUSE SYSTEM Atrial Rate 45 BPM MUSE SYSTEM P-R Interval 196 ms MUSE SYSTEM QRS Duration 90 ms MUSE SYSTEM Q-T Interval 554 ms MUSE SYSTEM QTC Calculated (Bezet) 479 ms MUSE SYSTEM Calculated P Orlando 33 degrees MUSE SYSTEM Calculated R Orlando 28 degrees MUSE SYSTEM Calculated T Orlando 58 degrees MUSE SYSTEM INTERPRETATION Sinus bradycardia Nonspecific ST and T wave abnormality Abnormal ECG When compared with ECG of 26-SEP-2022 17:33, QT has lengthened Confirmed by fellow Vaishnavi Pratt ([id number]) on 09/28/2022 9:30:13 AM Confirmed by MD [...] 09:04 AMBP: 92/56 mmHg ? Patient Location: 4A : 1970 ? Height: 163 cm ? Account: [id number] Age: 52 yrs ? Weight: 102 kg Gender: Female ?BSA: 2.1 m2 Ordering Physician: SUSANNAH GÓMEZ Referring Physician: SUSANNAH GÓMEZ Performed By: HAIM Arnold Reason For Study: NSTEMI Exam Location: [facility]. Interpretation Summary - Left ventricular systolic [...] 12/31/21, there is no significant change. Procedure Complete-[id number]. Image enhancement Optison was used for left [...] Location: : 1970 Height: 163 cm Account: [id number] Age: 52 yrs Weight: 102 kg Gender: Female BSA: 2.1 m2 Ordering Physician: SUSANNAH GÓMEZ Referring Physician: SUSANNAH GÓMEZ Performed By: HAIM Arnold Reason For Study: NSTEMI Exam Location: [facility]. Interpretation Summary - Left ventricular systolic [...] on 12/31/21, there is nosignificant change. Procedure Complete-[id number]. Image enhancement Optison was used for left [...] 3:07 AM EDT) Neutrophil % 49.4 % [facility] Neutrophil Absolute 3.02 1.70 - 6.10 x10(3)/[facility] Lymph % 36.4 % [facility] Lymphocytes Abs 2.2 0.9 - 3.2 x10(3)/[facility] Monocyte % 10.3 % [facility] Monocyte Abs 0.6 0.3 - 0.9 x10(3)/[facility] Eos % 3.0 % [facility] Eosinophils Abs 0.2 0.0 - 0.4 x10(3)/[facility] Basophil % 0.7 % [facility] Baso Absolute 0.0 0.0 - 0.1 x10(3)/[facility] Immature Gran % 0.20 % [facility] Comment: Immature granulocytes(IG's)percentage and absolute count will include metamyelocytes, myelocytes, and promyelocytes. Blood smears from CBCs yielding IG's will be scanned manually for concordance. If this scan disagrees with the automated IG or if promyelocytes are noted, a manual differential will be performed. Immature Gran Absolute 0.01 0.00 - 0.04 x10(3)/[facility] Blood 09/27/2022 3:07 AM EDT 09/27/2022 3:18 AM EDT Narrative Resulting Agency Comment Spec In Lab Vimal Holman MD HEMATOLOGY ORDERABLE S [facility] [place] [address] * (ABNORMAL) Hemogram (09/27/2022 3:07 AM EDT) Pathologist [facility] White Blood Cell 6.1 4.0 - 9.5 x10(3)/mc L [facility] Red Blood Cell 4.20 4.00 - 5.21 x10(6)/mc L [facility] Hemoglobin 13.3 11.7 - 15.5 g/dL [facility] Hematocrit 40.9 35.7 - 45.8 % [facility] Mean Cell Volume 97.4(H) 82.6 - 94.4 fL [facility] Mean Cell Hemoglobin 31.7 27.1 - 32.0 pg [facility] Mean Cell Hemoglobin Concentration 32.5 31.7 - 35.0 g/dL [facility] Platelet 223 145 - 357 x10(3)/mc L [facility] RDW Standard Deviation 45.0 37.0 - 46.0 fL [facility] RDW coefficient of variation 12.7 11.5 - 14.1 % [facility] Mean Platelet Volume 10.5 7.6 - 12.9 fL [facility] NRBC% auto 0.0 % [facility] NRBC Absolute 0.000 0.000 - 0.000 x10(3)/mc L [facility] Blood 09/27/2022 3:07 AM EDT 09/27/2022 3:18 AM EDT Narrative Resulting Agency Comment Spec In Lab Vimal Holman MD HEMATOLOGY ORDERABLE S [facility] [place] [address] * (ABNORMAL) Troponin (09/27/2022 3:07 AM EDT) [facility] Troponin-T, High Sensitivity 30(H) <=14 ng/L [facility] Comment: This patient's troponin T [...] troponin value can be found in the [facility] Laboratory Test Catalog Troponin - [facility] Test Catalog Reference: Fourth Milam Definition of Myocardial Infarction. Journal of the [place] College [employer] Cardiology 2018;72:2360-2961 Blood 09/27/2022 3:07 AM EDT 09/27/2022 3:18 AM EDT Narrative Resulting Agency Comment Spec In Lab Susannah Gómez MD CHEMISTRY ORDERABLES [facility] [place] [address] * (ABNORMAL) Basic Metabolic Panel (non-fasting) (09/27/2022 3:07 AM EDT) Pathologist [facility] Glucose 88 65 - 199 mg/dL [facility] Comment:Diabetes: >=200 mg/d L plus symptoms Blood Urea Nitrogen 31(H) 8 - 18 mg/dL [facility] Creatinine 1.19 0.70 - 1.20 mg/dL [facility] Sodium 138 135 - 145 mmol/L [facility] Potassium 4.3 3.5 - 5.0 mmol/L [facility] Comment: Please note: ??Patients with WBC >100,000 may have falsely elevated Potassium levels. ??For accurate Potassium quantification in these patients send serum separator tube (gold top) for subsequent determinations. ??Contact the Clinical Chemistry Laboratory if there are any questions. Chloride 108(H) 98 - 107 mmol/L [facility] Carbon Dioxide 18(L) 22 - 31 mmol/L [facility] Anion Gap 12 5 - 15 mmol/L [facility] Calcium 8.9 8.5 - 10.5 mg/dL [facility] Est Glomerular Filtration Rate 55(L) >=60 mL/min/1. 73 m?? [facility] Comment: This patient's estimated GFR [...] In Lab Susannah Gómez MD CHEMISTRY ORDERABLES [facility] [place] [address] * Hemoglobin A1c (09/27/2022 3:07 AM EDT) Hemoglobin A1c 5.6 4.3 - 5.6 % [facility] Comment: Reference Range: 4.3 - [...] Mellitus, Diabetes Care 2013; 36: Suppl. 1, A35-32 Estimated Average Glucose 114 mg/dL [facility] Comment: eAG equivalents for HbA1c [...] into estimated average glucose values. ??Diabetes Care 2008:31(8):1938-8028. Blood 09/27/2022 3:07 AM EDT 09/27/2022 3:18 AM EDT Narrative Resulting Agency Comment Spec In Lab Susannah Gómez MD CHEMISTRY ORDERABLES [facility] [place] [address] * Lipid Panel (Reflex Direct LDL) (09/27/2022 3:07 AM EDT) Cholesterol, Total 228 mg/dL [facility] Comment: Lower Risk: <200 mg/dL Average Risk: 200-239 mg/dL Higher Risk: >fr=883 mg/dL Triglyceride 221 mg/dL [facility] Comment: Average Risk/Lower Risk: <150 mg/dL Borderline High Risk: 150-199 mg/dL High Risk: 200-499 mg/dL Very High Risk: >yo=955 mg/dL HDL Cholesterol 33 mg/dL [facility] Comment: Males: ?? Higher Risk: <40 mg/dL Females: ?? Higher Risk: <50 mg/dL LDL Cholesterol 151 mg/dL [facility] Comment: Lowest Risk: <100 mg/dL Lower Risk: 100-129 mg/dL Borderline High Risk: 130-159 mg/dL High Risk: 160-189 mg/dL Very High Risk: >fl=085 mg/dL Cholesterol/HDL Ratio 6.9 ratio [facility] Lipid Interpretation See Note [facility] Comment: Lipid management should be guided by a patient? s ASCVD risk, goals and preferences. ACC/AHA Guidelines recommend high intensity statin if clinical ASCVD or LDL greater than or equal to 190 mg/dL. http://[employer]Wizeline/KYE-TIP-Kejmruddn Adults aged 40-75 with LDL 70-189 mg/dL should have their 10 year ASCVD risk estimated with the ACC/AHA ASCVD risk drapery estimator http://tools.acc.org/WYABQ-Iwtf-Mpqqndqiz/ Statin should be discussed if risk greater [...] Gómez MD CHEMISTRY ORDERABLES Performing Organization Address City/State/[facility] Co de Phone Number [facility] [address] [place], [place] [id number] * (ABNORMAL) Troponin (09/26/2022 8:55 PM EDT) Troponin-T, High Sensitivity 35(H) <=14 ng/L [facility] Comment: This patient's troponin T [...] troponin value can be found in the [facility] Laboratory Test Catalog Troponin - [facility] Laboratory Test Catalog Reference: Fourth Milam Definition of Myocardial Infarction. Journal of the [place] [employer] 2018;72:4334-5043 Blood 09/26/2022 8:55 PM EDT 09/26/2022 8:59 PM EDT Narrative Resulting Agency Comment Spec In Lab Susannah Gómez MD CHEMISTRY ORDERABLES Performing Organization Address City/[facility]/ZIP Co de Phone Number [facility] [place] [address] * Gold Tube HOLD (09/26/2022 5:50 PM EDT) Gold Hold Sample in lab. [facility] Blood Venous Draw / Unknown 09/26/2022 5:50 PM EDT 09/26/2022 6:13 PM EDT Vimal Holman MD CHEMISTRY ORDERABLES [facility] [place] [address] * Differential, Automated (09/26/2022 5:50 PM EDT) Neutrophil % 53.9 % [facility] Neutrophil Absolute 2.93 1.70 - 6.10 x10(3)/[facility] Lymph % 34.3 % [facility] Lymphocytes Abs 1.9 0.9 - 3.2 x10(3)/[facility] LABOR[facility] Monocyte % 8.3 % [facility] Monocyte Abs 0.4 0.3 - 0.9 x10(3)/[facility] Eos % 2.4 % [facility] Eosinophils Abs 0.1 0.0 - 0.4 x10(3)/[facility] LAB[facility] Basophil % 0.7 % [facility] Baso Absolute 0.0 0.0 - 0.1 x10(3)/[facility] LAB[facility] Immature Gran % 0.40 % [facility] Comment: Immature granulocytes(IG's)percentage and absolute count will include metamyelocytes, myelocytes, and promyelocytes. Blood smears from CBCs yielding IG's will be scanned manually for concordance. If this scan disagrees with the automated IG or if promyelocytes are noted, a manual differential will be performed. Immature Gran Absolute 0.02 0.00 - 0.04 x10(3)/[facility] Blood 09/26/2022 5:50 PM EDT 09/26/2022 6:12 PM EDT Narrative Resulting Agency Comment Spec In Lab Vimal Holman MD HEMATOLOGY ORDERABLE S Performing Organization Address City/State/[facility] Co de Phone Number [facility] [place] [address] * Hemogram (09/26/2022 5:50 PM EDT) White Blood Cell 5.4 4.0 - 9.5 x10(3)/[facility] Red Blood Cell 4.58 4.00 - 5.21 x10(6)/[facility] Hemoglobin 14.5 11.7 - 15.5 g/dL [facility] Hematocrit 42.4 35.7 - 45.8 % [facility] Mean Cell Volume 92.6 82.6 - 94.4 fL [facility] Mean Cell Hemoglobin 31.7 27.1 - 32.0 pg [facility] Mean Cell Hemoglobin Concentration 34.2 31.7 - 35.0 g/dL [facility] Platelet 182 145 - 357 x10(3)/[facility] RDW Standard Deviation 43.2 37.0 - 46.0 fL [facility] RDW coefficient of variation 12.6 11.5 - 14.1 % [facility] Mean Platelet Volume 11.3 7.6 - 12.9 fL [facility] NRBC% auto 0.0 % [facility] NRBC Absolute 0.000 0.000 - 0.000 x10(3)/mcL [facility] Blood 09/26/2022 5:50 PM EDT 09/26/2022 6:12 PM EDT Narrative Resulting Agency Comment Spec In Lab Vimal Holman MD HEMATOLOGY ORDERABLE S [facility] [place] [address] * (ABNORMAL) Basic Metabolic Panel (non-fasting) (09/26/2022 5:50 PM EDT) Glucose 81 65 - 199 mg/dL [facility] Comment:Diabetes: >=200 mg/d L plus symptoms Blood Urea Nitrogen 28(H) 8 - 18 mg/dL [facility] Creatinine 1.02 0.70 - 1.20 mg/dL [facility] Sodium 140 135 - 145 mmol/L [facility] Potassium 4.2 3.5 - 5.0 mmol/L [facility] Comment: Please note: ??Patients with WBC >100,000 may have falsely elevated Potassium levels. ??For accurate Potassium quantification in these patients send serum separator tube (gold top) for subsequent determinations. ??Contact the Clinical Chemistry Laboratory if there are any questions. Chloride 108(H) 98 - 107 mmol/L [facility] Carbon Dioxide 19(L) 22 - 31 mmol/L [facility] Anion Gap 13 5 - 15 mmol/L [facility] Calcium 9.0 8.5 - 10.5 mg/dL [facility] Est Glomerular Filtration Rate 66 >=60 mL/min/1. 73 m?? [facility] Comment: This patient's estimated GFR [...] In Lab Susannah Gómez MD CHEMISTRY ORDERABLES [facility] [place] [address] * Magnesium (09/26/2022 5:50 PM EDT) Magnesium 0.89 0.69 - 1.07 mmol/L [facility] Blood 09/26/2022 5:50 PM EDT 09/26/2022 6:12 PM EDT Narrative Resulting Agency Comment Spec In Lab Susannah Gómez MD CHEMISTRY ORDERABLES Performing Organization Address [facility] Co de Phone Number [facility] [place] [address] * Calcium (09/26/2022 5:50 PM EDT) Calcium 9.0 8.5 - 10.5 mg/dL [facility] Blood 09/26/2022 5:50 PM EDT 09/26/2022 6:12 PM EDT Narrative Resulting Agency Comment Spec In Lab Susannah Gómez MD CHEMISTRY ORDERABLES Performing Organization Address City/[facility] Co de Phone Number [facility] [place] [address] * (ABNORMAL) Prothrombin Time (09/26/2022 5:50 PM EDT) Prothrombin Time 14.3(H) 9.4 - 12.5 sec [facility] International Normalization Ratio 1.3 [facility] Comment: An INR <2.0 indicates [...] City/[facility]/ZIP Co de Phone Number [facility] [place] [address] * (ABNORMAL) APTT (09/26/2022 5:50 PM EDT) Partial Thromboplastin Time 39(H) 25 - 37 sec [facility] Comment: The PTT is NOT appropriate for heparin monitoring. Use the Anti-Xa level for heparin monitoring (HEP UFH) or LMWH monitoring (HEP LMW). A PTT less than 37 seconds generally indicates adequate hemostasis. Blood 09/26/2022 5:50 PM EDT 09/26/2022 6:12 PM EDT Narrative Resulting Agency Comment Spec In Lab Susannah Gómez MD HEMATOLOGY ORDERABLE S Performing Organization Address [facility]/ZIP Co de Phone Number [facility] [place] [address] * (ABNORMAL) pro-Brain Natriuretic Peptide (09/26/2022 5:50 PM EDT) NT-proBNP 1,069(H) <=124 pg/mL [facility] Blood 09/26/2022 5:50 PM EDT 09/26/2022 6:12 PM EDT Narrative Resulting Agency Comment Spec In Lab Susannah Gómez MD CHEMISTRY ORDERABLES Performing Organization Address City/[facility]/ZIP Co de Phone Number [facility] [place] [address] * TSH (09/26/2022 5:50 PM EDT) Thyroid Stimulating Hormone 3.02 0.27 - 4.20 mcIU/mL [facility] Comment: Reference Interval (mcIU/mL): Females: ??First Trimester: 0.23-3.88 ??Second Trimester: 0.22-3.90 ??Third Trimester: 0.44-4.66 Blood 09/26/2022 5:50 PM EDT 09/26/2022 6:12 PM EDT Narrative Resulting Agency Comment Spec In Lab Susannah Gómez MD CHEMISTRY ORDERABLES [facility] [place] [address] * EKG 12 Lead (09/26/2022 5:33 PM EDT) Ventricular rate 54 BPM MUSE SYSTEM Atrial Rate 54 BPM MUSE SYSTEM P-R Interval 180 ms MUSE SYSTEM QRS Duration 84 ms MUSE SYSTEM Q-T Interval 438 ms MUSE SYSTEM QTC Calculated (Bezet) 415 ms MUSE SYSTEM Calculated P [place] 20 degrees MUSE SYSTEM Calculated R [place] 21 degrees MUSE SYSTEM Calculated T [place] -28 degrees MUSE SYSTEM INTERPRETATION Sinus bradycardia [...] PM EDT) C-Reactive Protein <3.0 <=4.9 mg/L [facility] Blood Venous Draw / Unknown 09/26/2022 5:01 PM EDT 09/26/2022 5:33 PM EDT Narrative Resulting Agency Comment Spec In Lab Paulo Ramachandran Jr., MD CHEMISTRY ORDE KRIS Performing Organization Address City/[facility]/ZIP Co de Phone Number [facility] [place] [address] * (ABNORMAL) Troponin (09/26/2022 5:01 PM EDT) Troponin-T, High Sensitivity 29(H) <=14 ng/L [facility] Comment: This patient's troponin T [...] troponin value can be found in the [facility] Test Catalog Troponin - [facility] Test Catalog Reference: Fourth Milam Definition of Myocardial Infarction. Journal of the [place] [employer] 2018;72:1892-7497 Blood 09/26/2022 5:01 PM EDT 09/26/2022 5:12 PM EDT Narrative Resulting Agency Comment Spec In Lab Susannah Gómez MD CHEMISTRY ORDERABLES Performing Organization Address City/[facility]/ZIP Co de Phone Number [facility] [place] [address] documented in this encounter Visit Diagnoses Diagnosis [...] 2.5 mg, Oral, DAILY, First dose on Wed09/26/22 at 1830, Until Discontinued, Routine Given 09/27/2022 [...] mg, Oral, EVERY EVENING, First dose on Wed09/26/22 at 1745, Until Discontinued, Routine Given 09/27/2022 5:39 PM EDT 80 mg Given 09/26/2022 5:14 PM EDT 80 mg bumetanide (Bumex) tablet 1 mg 1 mg, Oral, DAILY, First dose on Wed09/28/22 at 1545, Until Discontinued, Routine DULoxetine DR (Cymbalta) capsule 60 mg 60 mg, Oral, DAILY, First dose on Wed09/26/22 at 1745, Until Discontinued, Routine Given 09/28/2022 [...] on Wed09/27/22 at 2230, Until Discontinued, Routine Given 09/27/2022 [...] Sublingual, EVERY 5 MIN PRN, Starting on Wed09/26/22 at 1647, Until Wed09/28/22 at 1910, Chest [...] Brown RN) 0900 (Given - Provider: Asya Michele, ERWIN) amLODIPine (Norvasc) tablet 5 mg 5 mg, Oral, DAILY, First dose (after last modification) on 09/28/22 at 0900, Until Discontinued, Routine 0931 (Given - Provider: Antonio Swann, ERWIN) aspirin chewable tablet 81 mg 81 mg, Oral, DAILY, First dose on Wed09/27/22 at 0900, Until Discontinued, Routine 0847 (Given - Provider: Asya Michele RN) 0931 (Given - Provider: Antonio Swann, ERWIN) atorvastatin (Lipitor) tablet 80 mg 80 mg, Oral, EVERY EVENING, First dose on 09/26/22 at 1745, Until Discontinued, Routine 1714 (Given - Provider: Mona Ogden RN) 1739 (Given - Provider: Asya Michele, ERWIN) 1700 (Due) bumetanide (Bumex) tablet 1 mg 1 mg, Oral, DAILY, First dose on 09/28/22 at 1545, Until Discontinued, Routine 1545 (Not Given - Provider: Antonio Swann, ERWIN - Reason: See comment - Comment: patient [...] Discontinued, Routine 2151 (Given - Provider: Samantha Patino, ERWIN) metoprolol succinate XL (Toprol-XL) tablet 25 mg (CANCELED) 25 mg, Oral, DAILY, First dose on 09/26/22 at 1845, Until Discontinued, DO NOT CRUSH OR OPEN, Routine 1850 (Given - Provider: Mona Ogden RN) 0846 [...] Comment: duplicate) 0931 (Given - Provider: Antonio Swann RN) sodium [...] Routine documented in this encounter Care Teams Scientific Writer Relationship Specialty Start Date End Date Polo Pearce PA [address] [place] [address] PCP - General Internal Medicine 06/09/21 documented as of this encounter
--- OUTSIDE RECORDS SUMMARY | 2024-01-24 12:37 | XMS_ITS | Encounter Summary ---
Author Organization Replaced By [facility] [place] [address] Care Team Providers Care Antique Clock Repairer Name Role Phone Polo Pearce Primary Care Provider [phone] Encounter Details Date Type Department Care Team (Late st Contact Info) Description 03/10/2023 Telephone Cardiology at [address] [address] Nilda Mayes, RN Social History Tobacco Use Types Packs/Day Years Used Date Smoking Tobacco: Never Smokeless Tobacco: Never Alcohol Use Standard Drinks/Week Comments Never 0 (1 standard drink = 0.6 oz pur e alcohol) [facility] Utilities Answer Date Recorded In the past 12 months has e [employer], gas, oil, or water [employer] threatened to shut off services in your [...] 1:00 PM EST Office Visit Cardiology at [address] [phone] Jaspreet Kinsey MD [facility] [place] [address] documented as of this encounter Visit Diagnoses Not on filedocumented in this encounter Care Teams Antique Clock Repairer Relationship Specialty Start Date End Date Polo Pearce PA Sb [address] [place] [address] PCP - General Internal Medicine 06/09/21 documented as of this encounter
--- OUTSIDE RECORDS SUMMARY | 2024-01-24 12:37 | XMS_ITS | Encounter Summary ---
Author Organization [facility] [place] [address] Care Team Providers Care Tumbler Tender Name Role Phone Polo Pearce Primary Care Provider [phone] Encounter Details Date Type Department Care Team (Late st Contact Info) Description 10/20/2022 8:00 AM EDT Tech [place] [phone] Florencia Callahan [place] Pulmonary embolism, unspecified chronicity, [...] 1:00 PM EST Office Visit Cardiology at [address] [phone] Jaspreet Kinsey MD [facility] [place] [address] documented as of this encounter Procedures Procedure [...] (Bezet) 525 ms MUSE SYSTEM Calculated R [place] 41 degrees MUSE SYSTEM Calculated T [place] 40 degrees MUSE SYSTEM INTERPRETATION Atrial fibrillation Nonspecific ST and T wave abnormality Prolonged QTc Abnormal ECG When compared with ECG of 08-OCT-2022 16:19, Atrial fibrillation has replaced Sinus rhythm Vent. rate has increased BY ??34 BPM Nonspecific T wave abnormality, improved in Inferior leads QT has lengthened I personally reviewed the tracing and edited the fellows interpretation Confirmed by fellow Otis Rader ([id number]) on 10/20/2022 3:03:05 PM Confirmed by MD Maxwell Hannah ([id number]) on 10/20/2022 7:08:19 PM MUSE SYSTEM 10/20/2022 10:0 3 AM EDT 10/20/2022 7:08 PM EDT Unknown ECG ORDERABLES MUSE SYSTEM * Duplex Study for DVT, Bilat legs (10/20/2022 8:06 AM EDT) VB Text Report Department: Vascular Surgery Lab Patient: [id number] (LOIDA ROQUE) CPT: 23201 Referring Physician: MAMIE MARX ?? Phone: Indications: [...] present documented in this encounter Care Teams Tumbler Tender Relationship Specialty Start Date End Date Polo Pearce PA [address] [place] [address] PCP - General Internal Medicine 06/09/21 documented as of this encounter
--- OUTSIDE RECORDS SUMMARY | 2024-01-24 12:37 | XMS_ITS | Encounter Summary ---
[place] [address] Care Team Providers Care Assistant Child Care Teacher Name Role Phone Polo Pearce Primary Care Provider [phone] Reason for Referral * Consultation (Routine) - Closed Specialty Diagnoses / Procedures Referred By Contac t Referred To Contact Cardiology Diagnoses Non-ST elevation myocardial infarction (NSTEMI) Itz Bhardwaj MD [facility] [place] [address] [address] [place] [address] Referral ID Status Reason Start Date Expiration Date V isits Requested Visits Authorized [id number] Closed Consult, Test & Treat Non PCP 02/18/2023 08/17/2023 36 36 Encounter Details Date Type Department Care Team (Late st Contact Info) Description 02/18/2023 Orders [place] [address] Jazmin Levine RN Non-ST elevation myocardial infarction [...] PM EST Office Visit Cardiology at [address] [place] [phone] Jaspreet Kinsey MD [facility] [place] [address] Scheduled Referrals Name Type Priority Associated Diagnoses Orde r Schedule Referral to Cardiac Rehab Outpatient Referral Routine Non-ST elevation myocardial infarction (NSTEMI) Ordered: 02/18/2023 documented as of this encounter Visit Diagnoses Diagnosis Non-ST elevation myocardial infarction (NSTEMI) Acute myocardial infarction, subendocardial infarction, episode of care unspecified documented in this encounter Care Teams Assistant Child Care Teacher Relationship Specialty Start Date End Date Polo Pearce PA [address] [place] [address] PCP - General Internal Medicine 06/09/21 documented as of this encounter
--- OUTSIDE RECORDS SUMMARY | 2024-01-24 12:37 | XMS_ITS | Encounter Summary ---
Author Organization [facility] Address [facility] [place] [address] Care Team Providers Care Cardiac Cath Rn Name Role Phone Polo Pearce Primary Care Provider [phone] Encounter Details Date Type Department Care Team (Late st Contact Info) Description 08/31/2022 External [place] [address] Social History Tobacco Use Types Packs/Day Years [...] PM EST Office Visit Cardiology at [address] [place] [address] Jaspreet Kinsey MD [facility] [place] [address] documented as of this encounter Procedures Procedure Name Priority Date/Time Associated Diagnosis Comments ECG SCAN Routine 08/31/2022 2:00 PM EDT documented in this encounter Results * Scan Doc: ECG (08/31/2022 2:00 PM EDT) Historical Provider MD MEDIA MGR SCAN EX T ORDR/RSLT documented in this encounter Visit Diagnoses Not on filedocumented in this encounter Care Teams Cardiac Cath Rn Relationship Specialty Start Date End Date Polo Pearce PA [address] [place] [address] PCP - General Internal Medicine 06/09/21 documented as of this encounter
--- OUTSIDE RECORDS SUMMARY | 2024-01-24 12:37 | XMS_ITS | Encounter Summary ---
Author Organization [facility] [place] [address] Care Team Providers Care Disability Rater Name Role Phone Polo Pearce Primary Care Provider [phone] Encounter Details Date Type Department Care Team (Late st Contact Info) Description 02/16/2023 Telephone Cardiology at [address] [address] Jaspreet Kinsey MD [facility] [place] [address] Social History Tobacco Use Types Packs/Day Years Used Date Smoking Tobacco: Never Smokeless Tobacco: Never Alcohol Use Standard Drinks/Week Comments Never 0 (1 standard drink = 0.6 oz pur e alcohol) [facility] Utilities Answer Date Recorded In the past 12 months has e [employer], gas, oil, or water [employer] threatened to shut off services in your [...] her problems. Please call her back @ [phone] documented in this encounter Plan of Treatment Upcoming Encounters Date Type Department Care Team (Late st Contact Info) Description 02/10/2024 1:00 PM EST Office Visit Cardiology at [address] [place] [phone] Jaspreet Kinsey MD [facility] [place] [address] documented as of this encounter Visit Diagnoses Not on filedocumented in this encounter Care Teams Disability Rater Relationship Specialty Start Date End Date Polo Pearce PA [address] [place] [address] PCP - General Internal Medicine 06/09/21 documented as of this encounter
--- OUTSIDE RECORDS SUMMARY | 2024-01-24 12:37 | XMS_ITS | Encounter Summary ---
Author Organization [facility] Address [facility] [place] [address] Care Team Providers Care Assembler Convertible Top Name Role Phone Polo Pearce Primary Care Provider [phone] Encounter Details Date Type Department Care Team [...] PM EST Office Visit Cardiology at [address] [place] [phone] Jaspreet Kinsey MD [facility] [address] documented as of this encounter Visit Diagnoses Not on filedocumented in this encounter Care Teams Assembler Convertible Top Relationship Specialty Start Date End Date Polo Pearce PA [address] [place] [address] PCP - General Internal Medicine 06/09/21 documented as of this encounter
--- OUTSIDE RECORDS SUMMARY | 2024-01-24 12:37 | XMS_ITS | Encounter Summary ---
Author Organization [facility] [place] [address] Care Team Providers Care Under Cutter Name Role Phone Polo Pearce Primary Care Provider [phone] Encounter Details Date Type Department Care Team (Late st Contact Info) Description 12/22/2022 Telephone Cardiology at [address] [address] Jaspreet Kinsey MD [facility] [place] [address] Social History Tobacco Use Types Packs/Day Years [...] 1:00 PM EST Office Visit Cardiology at [address] [place] [address] Jaspreet Kinsey MD [facility] [place] [address] documented as of this encounter Visit Diagnoses Not on filedocumented in this encounter Care Teams Under Cutter Relationship Specialty Start Date End Date Polo Pearce PA [address] [place] [address] PCP - General Internal Medicine 06/09/21 documented as of this encounter
--- OUTSIDE RECORDS SUMMARY | 2024-01-24 12:38 | XMS_ITS | Encounter Summary ---
Author Organization [facility] [place] [address] Care Team Providers Care Meteorological Equipment Repairer Name Role Phone Polo Pearce Primary Care Provider [phone] Reason for Visit * Reason Comments Medication Refill Encounter Details Date Type Department Care Team (Late st Contact Info) Description 07/24/2022 Refill Cardiology at [address] [phone] Deja Zaidi PA [address] [address] Medication Refill Social History Tobacco Use Types [...] PM EST Office Visit Cardiology at [address] [place] [address] Jaspreet Kinsey MD [facility] [place] [address] documented as of this encounter Visit Diagnoses Diagnosis Chronic heart failure with preserved ejection fraction documented in this encounter Care Teams Meteorological Equipment Repairer Relationship Specialty Start Date End Date oPlo Pearce PA [address] [place] [address] PCP - General Internal Medicine 06/09/21 documented as of this encounter
--- OUTSIDE RECORDS SUMMARY | 2024-01-24 12:38 | XMS_ITS | Encounter Summary ---
Author Organization [facility] [place] [address] Care Team Providers Care Night Clerk Name Role Phone Polo Pearce Primary Care Provider [phone] Encounter Details Date Type Department Care Team (Late st Contact Info) Description 07/29/2022 9:50 PM EDT Ancillary Procedure Radiology Library at [facility] [place] [address] Marcia Kamara MD [facility] [place] [address] Social History Tobacco Use Types Packs/Day Years [...] PM EST Office Visit Cardiology at [address] [place] [address] Jaspreet Kinsey MD [facility] [place] [address] documented as of this encounter Procedures Procedure Name Priority Date/Time Associated Diagnosis Comments FILM LIBRARY STORAGE ONLY CT HEAD AND SPINE Routine 07/29/2022 9:45 PM EDT documented in this encounter Results * Film Library- Storage Only CT Head And Spine (07/29/2022 9:45 PM EDT) Narrative JAMAL - 07/29/2022 9:45 PM EDT This exam is auto-finalizing. It's purpose is for storage only. Marcia Kamara MD IMG FILM LIBRARY ORD ERABLES Performing Organization Address City/State/[facility] Co de Phone Number [place], [place] documented in this encounter Visit Diagnoses Not on filedocumented in this encounter Care Teams Night Clerk Relationship Specialty Start Date End Date Polo Pearce PA [address] [place] [address] PCP - General Internal Medicine 06/09/21 documented as of this encounter
--- OUTSIDE RECORDS SUMMARY | 2024-01-24 12:38 | XMS_ITS | Encounter Summary ---
Author Organization [facility] Address [facility] [place] [address] Care Team Providers Care Skoog Machine Operator Name Role Phone Polo Pearce Primary Care Provider [phone] Reason for Visit * Reason Comments Congestive Heart Failure Encounter Details Date Type Department Care Team (Late st Contact Info) Description 03/16/2022 3:20 PM EST Office Visit Cardiology at [address] [address] Jaspreet Kinsey MD [facility] [place] [address] Heart failure with preserved ejection fraction, unspecified [...] She states when she was discharged from [facility] inOctober she felt OK, [...] Rfl: ??? fluticasone propionate (FLONASE) 50 mcg/actuation [place], Suspension, 1 spray by Each Nare routedaily., [...] 1:00 PM EST Office Visit Cardiology at [address] [address] Jaspreet Kinsey MD [facility] [place] [address] documented as of this encounter Visit Diagnoses Diagnosis Heart failure with preserved ejection fraction, unspecified HF chronicity SVT (supraventricular tachycardia) Other specified cardiac dysrhythmias documented in this encounter Care Teams Skoog Machine Operator Relationship Specialty Start Date End Date Polo Pearce PA [address] [place] [address] PCP - General Internal Medicine 06/09/21 documented as of this encounter
--- OUTSIDE RECORDS SUMMARY | 2024-01-24 12:38 | XMS_ITS | Encounter Summary ---
Author Organization [facility] [place] [address] Care Team Providers Care Informatica Mdm Architect Name Role Phone Polo Pearce Primary Care Provider [phone] Encounter Details Date Type Department Care Team (Late st Contact Info) Description 12/31/2021 Orders Only Cardiology at [address] [address] Umberto Joy PA [facility] [place] [address] SVT (supraventricular tachycardia) Social History Tobacco Use [...] 1:00 PM EST Office Visit Cardiology at [address] [place] [address] Jaspreet Kinsey MD [facility] [place] [address] documented as of this encounter Procedures Procedure [...] Lovell. Interpretation Summary Limited echocardiogram performed by contingents supervisor fellow. 1. LV appears globally hypokinetic. Visually estimated LVEF 40%. 2. RV is not well visualized, but appears mildly reduced in global systolic function. Recommend comprehensive echo. Procedure Note Willy Gómez MD - 01/05/2022 Echocardiogram Report Name: LOIDA ROQUE Study Date: 12/30/2021 11:29PM : 1970 Age: 51 yrs Gender: Female Interpreting Fellow: Ciro Lovell. Interpretation Summary Limited echocardiogram performed by contingents supervisor fellow. 1. LV appears globally hypokinetic. Visually estimated LVEF 40%. 2. RV is not well visualized, but appears mildly reduced in globalsystolic function. Recommend comprehensive echo. Unknown ECHO ORDERABLES documented in this encounter Visit Diagnoses Diagnosis SVT (supraventricular tachycardia) Other specified cardiac dysrhythmias documented in this encounter Care Teams Informatica Mdm Architect Relationship Specialty Start Date End Date Polo Pearce PA [address] [place] [address] PCP - General Internal Medicine 06/09/21 documented as of this encounter
--- OUTSIDE RECORDS SUMMARY | 2024-01-24 12:38 | XMS_ITS | Encounter Summary ---
[place] [address] Care Team Providers Care [employer] Former Arbor End Name Role Phone Polo Pearce Primary Care Provider [phone] Encounter Details Date Type Department Care Team (Late st Contact Info) Description 07/28/2022 Telephone Cardiology at [address] [address] Jaspreet Kinsey MD [facility] [place] [address] Social History Tobacco Use Types Packs/Day Years [...] and would like a call back @ [phone] * Telephone Encounter - Nilda Mayes, RN - 07/28/2022 10:57 AM EDT Indira says she is being discharged to home from [facility] today. Home diuretic therapy isn't working well. When I'm in the hospital, it really comes down again. She asks if the fluid pill needs to be changed. Plan: to request discharge records from [facility] when available. * Telephone Encounter - Brenda Callahan - 07/28/2022 10:44 AM EDT PT called she was advised to call this office. She has a few questions. Prior notes in chart she has been at [facility]. She would like a call back from a nurse please. [phone] documented in this encounter Plan of Treatment Upcoming Encounters Date Type Department Care Team (Late st Contact Info) Description 02/10/2024 1:00 PM EST Office Visit Cardiology at [address] [place] [id number] Jaspreet Kinsey MD [facility] [place] [address] documented as of this encounter Visit Diagnoses Not on filedocumented in this encounter Care Teams [employer] Relationship Specialty Start Date End Date Polo Pearce PA Sb [address] [place] [id number] PCP - General Internal Medicine 06/09/21 documented as of this encounter
--- OUTSIDE RECORDS SUMMARY | 2024-01-24 12:38 | XMS_ITS | Encounter Summary ---
[place] [address] Care Team Providers [employer] Pilot Name Role Phone Polo Pearce Primary Care Provider [phone] Reason for Visit * Auth/Cert Specialty Diagnoses / Procedures Referred By Jayant harris Referred To Contact Diagnoses NSTEMI (non-ST elevated myocardial infarction) Chest Pain Procedures EMERGENCY IPI Sobeida Jimenez MD [facility] [place] [address] [facility] Referral ID Status Reason Start Date Expiration Date Visits Re quested Visits Authorized [id number] 1 1 Encounter Details Date Type Department Care Team (Latest Contact Info) Description 12/30/2021 10:41 PM EDT - 01/01/2022 2:24 PM EDT Hospital Encounter [place] [address] Sobeida Jimenez MD [facility] [place] [place] [address] SVT (supraventricular tachycardia); Non-ST elevation NM (NSTEMI); [...] Loida Madrigal Patient Age: 51 y.o. Language: Vincentian Race: White Ethnicity: Not nor Admit date: 12/30/2021 Discharge date and time: 01/01/2022 Attending Physician: Sobeida Jimenez MD Discharge Physician: Sobeida Jimenez MD ID: Loida Madrigal is a 51 y.o. female w/ PMH of AVNRT, HFpEF, asthma, MARYLOU, obesity, mild PAH([facility] 06/2021) who presents today in transfer [...] follow up. PCP Contact Information: J[address] / [facility] [id number] Pending Studies and Lab Data: Official Ankle [...] preserved ejection fraction 05/2021: subacute, presented to [facility] with RUQ pain, weight gain, [...] 12/31/2021 06:52 AMBP: 109/62 mmHg Patient Location: [facility]^C450^B : 1970 Height: 163 cm Account: [id number] Age: 51 yrs Weight: 100 kg Gender: Female BSA: 2.0 m2 Ordering Physician: SOBEIDA JIMENEZ Referring Physician: KARIN ESPINOSA Performed By: HAIM Harris Reason For Study: Acute on chronic heart failure with preserved ejection fraction Exam Location: [facility]. Interpretation Summary -Left ventricle is [...] the prior study from 06/09/21 ?? Procedure Complete-00073. Satisfactory quality. There is sinus bradycardia. ?? [...] Important Studies and Lab Data: Recent Labs 01/01/22 0415 12/31/21 0020 WBC 6.2 7.9 HGB 13.9 13.3 HCT 41.3 39.1 PLATELET 204 209 Recent Labs 01/01/22 0856 01/01/22 0415 12/31/21 0020 NA -- 137 140 K -- 4.0 4.1 CL -- 109* 110* CO2 -- 15* 17* BUN -- * CREATININE -- 1.04 0.95 MAGNESIUM 0.96 -- 0.87 PHOS -- -- 3.5 No results for input(s): BILITOT, BILIDIR, AST, ALT, ALKPHOS in the last 168 hours. Recent Labs 12/31/21 002 INR 1.1 PTT 90* Recent Labs 12/31/21 002 HA1C 5.7* Recent Labs 12/31/21 0020 TSH 7.36* Recent Labs 12/31/21 002 HDL 35 LDLCHOL 65 CHOLHDL 3.5 TRIG [...] have questions please contact the health director career services that requested your imaging first. Discharge Conditions/Prognosis: [...] scheduled with both your PCP and your lead cook in the outpatient setting within the next [...] appointments: During 8am-5pm Wednesday through Wednesday call [phone] to speak with a nurse in the cardiology clinic All other times call [phone] and ask to speak to the director sterile processing agricultural education instructor. Follow up Appointments: Future Appointments Date Time Provider Department Center 01/21/2022 9:00 AM Jaspreet Kinsey MD [facility] 01/12/2022, Appointment with Mr. Polo Pearce Glassine Machine Tender: Dr. Jaspreet Kinsey PCP: JOCY Franco at [phone] Your Inpatient Doctor(s) at [facility]: Sobeida Jimenez MD - Attending physician Dr. Paris Guerra MD - Resident Physician Dr. Yoselin Gómez DO, Resident Physician Dr. Edwin Mcghee MD, Fellow Physician Your Primary Care Provider: JOCY Franco DR [facility] / [facility] [address] For questions regarding issues relating to your hospitalization on the Hospital Medicine Service, please contact your inpatient physician through the [facility] Carton Waxing Machine Operator [phone]. Issues after hours and on weekends will be handled by the Hospitalist staff on-call. General Instructions None Future Appointments and Orders Future Appointments and Orders Future Appointments Provider Department Dept Phone 01/21/2022 9:00 AM Jaspreet Kinsey MD Cardiology at [place] [facility] at: [facility] [address] [phone] Inpatient Provider Contact Information: Deven Guerra Jr, MD Internal Medicine, PGY-3 [facility], pager [phone] Discharge References/Attachments: Discharge References/Attachments None documented in [...] scheduled with both your PCP and your lead cook in the outpatient setting within the next [...] appointments: During 8am-5pm Wednesday through Wednesday call [phone] to speak with a nurse in the cardiology clinic All other times call [phone] and ask to speak to the director sterile processing agricultural education instructor. Follow up Appointments: Future Appointments Date Time Provider Department Center 01/21/2022 9:00 AM Jaspreet Kinsey MD [facility] 01/12/2022, Appointment with Mr. Polo Pearce Glassine Machine Tender: Dr. Jaspreet Kinsey PCP: JOCY Franco at [phone] Your Inpatient Doctor(s) at [facility]: Sobeida Jimenez MD - Attending physician Dr. Paris Guerra MD - Resident Physician Dr. Yoselin Gómez DO, Resident Physician Dr. Edwin Mcghee MD, Fellow Physician Your Primary Care Provider: JOCY Franco [address]OUZA [facility] / [facility] [address] For questions regarding issues relating to your hospitalization on the Hospital Medicine Service, please contact your inpatient physician through the [facility] Carton Waxing Machine Operator [phone]. Issues after hours and on weekends will [...] as needed. fluticasone propionate (FLONASE) 50 mcg/actuation [place], Suspension 1 spray by Each Nare route [...] 1970 PCP: JOCY Franco PCP phone number: [phone] Date of Admission: 12/30/2021 ( Hospital Day 1 day ) Attending:Sobeida Jimenez MD ID: Loida Madrigal is a 51 y.o. female w/ PMH of AVNRT, HFpEF, asthma, MARYLOU, obesity, mild PAH([facility] 06/2021) who presents today in transfer for evaluation of chest pain. Patient Active Problem List Diagnosis ??? NSTEMI (non-ST elevated myocardial infarction) ??? 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 Obesity ??? Dyslipidemia ??? Obstructive sleep apnea syndrome ??? Insomnia ??? 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 ??? fluticasone propionate (FLONASE) 50 mcg/actuation [place], Suspension 1 spray by Each Nare route [...] ??? heparin (porcine) infusion 1,000 Units/hr (12/30/21 9686) PRN Meds: lidocaine, nitroGLYcerin, sodium chloride 0.9 [...] obesity, AVNRT presented with CP and palpitations [facility] 2019: normal cors [facility] 2021: mild PHTN, mPA 24, CI [...] COVID test: Lab Results Component Value Date [id number] Not Detected 06/13/2021 Present on Admission: ??? 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 Current Living Arrangements: home/apartment/condo. Accessibility Concerns:no concerns. Current DME: none [address] [facility] [address] Social & Family Supports: Extended Emergency Contact [...] private car when medically ready. Registered Nurse Regional Manager / Physician Relations Specialist will continue to follow patient???s progress and remain available if situation changes for coordination of care, psychosocial support and/or discharge planning. Office of Care Management documented in this encounter Plan of Treatment Upcoming Encounters Date Type Department Care Team (Late st Contact Info) Description 02/10/2024 1:00 PM EST Office Visit Cardiology at [address] [place] [id number] Jaspreet Kinsey MD [facility] [place] [address] documented as of this encounter Procedures Procedure [...] have questions please contact the health director career services that requested your imaging [...] who have questions please contactthe health director career services that requested your imaging first. Sobeida Jimenez MD IMG DX ORDERABLES * Magnesium (01/01/2022 8:56 AM EDT) Magnesium 0.96 0.69 - 1.07 mmol/L [facility] Blood 01/01/2022 8:56 AM EDT 01/01/2022 9:19 AM EDT Narrative Resulting Agency Comment Spec In Lab Sobeida Jimenez MD CHEMISTRY ORDERABLES [facility] [place] [id number] * Differential, Automated (01/01/2022 4:15 AM EDT) Pathologist [facility] Neutrophil % 59.8 % [facility] Neutrophil Absolute 3.72 1.70 - 6.10 x10(3)/[facility] Lymph % 26.0 % [facility] Lymphocytes Abs 1.6 0.9 - 3.2 x10(3)/[facility] Monocyte % 8.7 % [facility] Monocyte Abs 0.5 0.3 - 0.9 x10(3)/[facility] Eos % 4.5 % [facility] Eosinophils Abs 0.3 0.0 - 0.4 x10(3)/[facility] Basophil % 0.8 % [facility] Baso Absolute 0.0 0.0 - 0.1 x10(3)/[facility] Immature Gran % 0.20 % ST [...] Lab Lorna Haider MD HEMATOLOGY ORDERABL ES [facility] [place] [address] * Hemogram (01/01/2022 4:15 AM EDT) White Blood Cell 6.2 4.0 - 9.5 x10(3)/[facility] Red Blood Cell 4.43 4.00 - 5.21 x10(6)/[facility] Hemoglobin 13.9 11.7 - 15.5 g/dL [facility] Hematocrit 41.3 35.7 - 45.8 % [facility] Mean Cell Volume 93.2 82.6 - 94.4 [facility] Mean Cell Hemoglobin 31.4 27.1 - 32.[address] [facility] Mean Cell Hemoglobin Concentration 33.7 31.7 - 35.0 g/dL [facility] Platelet 204 145 - 357 x10(3)/[facility] RDW Standard Deviation 43.4 37.0 - 46.0 [facility] RDW coefficient of variation 12.6 11.5 - 14.1 % [facility] Mean Platelet Volume 10.6 7.6 - 12.9 [facility] NRBC% auto 0.0 % [facility] NRBC Absolute 0.000 0.000 - 0.000 x10(3)/[facility] Blood 01/01/2022 4:15 AM EDT 01/01/2022 4:23 AM EDT Narrative Resulting Agency Comment Spec In Lab Lorna Haider MD HEMATOLOGY ORDERABL ES [facility] [place] [address] * (ABNORMAL) Basic Metabolic Panel (non-fasting) (01/01/2022 4:15 AM EDT) Glucose 103 65 - 199 mg/dL [facility] Comment:Diabetes: >=200 mg/d L plus symptoms Blood Urea Nitrogen 26(H) 8 - 18 mg/dL [facility] [...] questions. Chloride 109(H) 98 - 107 mmol/L [facility] Carbon Dioxide 15(L) 22 - 31 mmol/L [facility] Anion Gap 13 5 - 15 mmol/L [facility] Calcium 8.9 8.5 - 10.5 mg/dL [facility] Est Glomerular Filtration Rate 65 >=60 mL/min/1. 73 m?? [facility] [...] In Lab Sobeida Jimenez MD CHEMISTRY ORDERABLES [facility] [place] [address] * ECHO COMPLETE (12/31/2021 8:02 AM EDT) Anatomical Region Laterality Modality Cardiac Other 12/31/2021 6:52 AM EDT Narrative 12/31/2021 8:30 AM EDT ? Echocardiogram Report Name: LOIDA MADRIGAL ? Study Date: 12/31/2021 06:52 AMBP: 109/62 mmHg ? Patient Location: [facility]^C450^B : 1970 ? Height: 163 cm ? Account: [id number] Age: 51 yrs ? Weight: 100 kg Gender: Female ?BSA: 2.0 m2 Ordering Physician: SOBEIDA JIMENEZ Referring Physician: KARIN ESPINOSA Performed By: HAIM Harris Reason For Study: Acute on chronic heart failure with preserved ejection fraction Exam Location: [facility]. Interpretation Summary -Left ventricle is [...] to the prior study from 06/09/21 Procedure Complete-[id number]. Satisfactory quality. There is sinus bradycardia. Left [...] Study Date: 206:52 AMBP: 109/62 mmHg Patient Location:[facility]^C450^B : 1970 Height: 163 cm Account: [id number] Age: 51 yrs Weight: 100 kg Gender: Female BSA: 2.0 m2 Ordering Physician: SOBEIDA JIMENEZ Referring Physician: KARIN ESPINOSA Performed By: HAIM Harris Reason For Study: Acute on chronic heart failure with preserved ejectionfraction Exam Location: [facility]. Interpretation Summary -Left ventricle is [...] to the prior study from 06/09/21 Procedure Complete-[id number]. Satisfactory quality. There is sinus bradycardia. Left [...] 7:01 AM EDT) UF Heparin 0.43 IU/mL [facility] Comment: [...] Performing Organization Address City/[facility]/ZIP Co de Phone Number [facility] [place] [address] * T4, free (12/31/2021 7:01 AM EDT) [facility] Free T4 1.16 0.93 - 1.70 ng/dL [facility] Comment: Reference Interval (ng/dL): Females: ??First Trimester: 0.97-1.68 ??Second Trimester: 0.77-1.51 ??Third Trimester: 0.77-1.49 Blood 12/31/2021 7:01 AM EDT 12/31/2021 7:11 AM EDT Narrative Resulting Agency Comment Spec In Lab Sobeida Jimenez MD CHEMISTRY ORDERABLES Performing Organization Address City/[facility]/ZIP Co de Phone Number [facility] [place] [address] * (ABNORMAL) Troponin (12/31/2021 3:28 AM EDT) [facility] Troponin-T, High Sensitivity 21(H) <=14 ng/L [facility] Comment: [...] value can be found in the [facility] Laboratory Test Catalog Troponin - [facility] Laboratory Test Catalog Reference: Fourth [place] Definition of Myocardial Infarction. Journal of the [place] College of Cardiology 2018;72:6515-5217 Blood 12/31/2021 3:28 AM EDT 12/31/2021 4:31 AM EDT Narrative Resulting Agency Comment Spec In Lab Sobeida Jimenez MD CHEMISTRY ORDERABLES [facility] [place] [address] * EKG 12 Lead (12/31/2021 3:23 AM EDT) Ventricular rate 44 BPM MUSE SYSTEM Atrial Rate 44 BPM MUSE SYSTEM P-R Interval 190 ms MUSE SYSTEM QRS Duration 86 ms MUSE SYSTEM Q-T Interval 562 ms MUSE SYSTEM QTC Calculated (Bezet) 480 ms MUSE SYSTEM Calculated P Mccleary 32 degrees MUSE SYSTEM Calculated R Mccleary 58 degrees MUSE SYSTEM Calculated T Mccleary 24 degrees MUSE SYSTEM INTERPRETATION Marked sinus bradycardia Possible Lateral infarct (cited on or before 30-DEC-2021) Nonspecific ST and T wave abnormality Prolonged QT Abnormal ECG When compared with ECG of 25-OCT-2022 22:45, No significant change was found I personally reviewed the tracing and edited the fellows interpretation Confirmed by fellow MD Rosalinda, Alejandro ([id number]) on 12/31/2021 9:13:46 PM Confirmed by MD Angelo Danette ([id number]) on 01/01/2022 7:24:12 AM MUSE SYSTEM 12/31/2021 3:23 AM EDT 01/01/2022 7:24 AM EDT Sobeida Jimenez MD ECG ORDERABLES Performing Organization Address City/[facility]/ZIP Co de Phone Number MUSE SYSTEM * Heparin (unfractionated) Level (12/31/2021 12:20 AM EDT) Pathologist [facility] UF Heparin 0.40 IU/mL [facility] Comment: [...] Performing Organization Address City/[facility]/ZIP Co de Phone Number [facility] [place] [address] * Differential, Automated (12/31/2021 12:20 AM EDT) Neutrophil % 57.0 % [facility] Neutrophil Absolute 4.48 1.70 - 6.10 x10(3)/[facility] Lymph % 32.4 % [facility] Lymphocytes Abs 2.6 0.9 - 3.2 x10(3)/[facility] Monocyte % 6.4 % [facility] Monocyte Abs 0.5 0.3 - 0.9 x10(3)/[facility] Eos % 3.3 % [facility] Eosinophils Abs 0.3 0.0 - 0.4 x10(3)/[facility] Basophil % 0.5 % [facility] Baso Absolute 0.0 0.0 - 0.1 x10(3)/[facility] Immature Gran % 0.40 % ST [...] Lab Lorna Haider MD HEMATOLOGY ORDERABL ES [facility] [place] [address] * Hemogram (12/31/2021 12:20 AM EDT) White Blood Cell 7.9 4.0 - 9.5 x10(3)/[facility] Red Blood Cell 4.24 4.00 - 5.21 x10(6)/[facility] Hemoglobin 13.3 11.7 - 15.5 g/dL [facility] Hematocrit 39.1 35.7 - 45.8 % [facility] Mean Cell Volume 92.2 82.6 - 94.[address] [facility] Mean Cell Hemoglobin 31.4 27.1 - 32.[address] [facility] Mean Cell Hemoglobin Concentration 34.0 31.7 - 35.0 g/dL [facility] Platelet 209 145 - 357 x10(3)/[facility] RDW Standard Deviation 43.2 37.0 - 46.[address] [facility] RDW coefficient of variation 12.8 11.5 - 14.1 % [facility] Mean Platelet Volume 11.2 7.6 - 12.[address] [facility] NRBC% auto 0.0 % [facility] NRBC Absolute 0.000 0.000 - 0.000 x10(3)/[facility] Blood 12/31/2021 12:2 0 AM EDT 12/31/2021 12:41 AM EDT Narrative Resulting Agency Comment Spec In Lab Lorna Haider MD HEMATOLOGY ORDERABL ES [facility] [place] [address] * (ABNORMAL) Troponin (12/31/2021 12:20 AM EDT) Troponin-T, High Sensitivity 19(H) <=14 ng/L [facility] Comment: [...] value can be found in the [facility] Laboratory Test Catalog Troponin - [facility] Laboratory Test Catalog Reference: Fourth [place] Definition of Myocardial Infarction. Journal of the [place] College of Cardiology 2018;72:0714-5332 Blood 12/31/2021 12:2 0 AM EDT 12/31/2021 12:41 AM EDT Narrative Resulting Agency Comment Spec In Lab Sobeida Jimenez MD CHEMISTRY ORDERABLES [facility] [place] [address] * (ABNORMAL) Hemoglobin A1c (12/31/2021 12:20 AM EDT) Hemoglobin A1c 5.7(H) 4.3 - 5.6 % [facility] [...] 1, S67-74 Estimated Average Glucose 118 mg/dL [facility] Comment: eAG [...] into estimated average glucose values. ??Diabetes Care 2008:31(8):6407-1471. Blood 12/31/2021 12:2 0 AM EDT 12/31/2021 12:42 AM EDT Narrative Resulting Agency Comment Spec In Lab Sobeida Jimenez MD CHEMISTRY ORDERABLES [facility] [place] [address] * Lipid Panel (Reflex Direct LDL) (12/31/2021 12:20 AM EDT) Cholesterol, Total 122 mg/dL [facility] Comment: Lower Risk: <200 mg/dL Average Risk: 200-239 mg/dL Higher Risk: >lg=110 mg/dL Triglyceride 111 mg/dL [facility] Comment: Average Risk/Lower Risk: <150 mg/dL Borderline High Risk: 150-199 mg/dL High Risk: 200-499 mg/dL Very High Risk: >oe=977 mg/dL HDL Cholesterol 35 mg/dL [facility] Comment: Males: ?? Higher Risk: <40 mg/dL Females: ?? Higher Risk: <50 mg/dL LDL Cholesterol 65 mg/dL [facility] Comment: Lowest Risk: <100 mg/dL Lower Risk: 100-129 mg/dL Borderline High Risk: 130-159 mg/dL High Risk: 160-189 mg/dL Very High Risk: >ep=682 mg/dL Cholesterol/HDL Ratio 3.[address] [facility] Lipid Interpretation See Note [facility] Comment: Lipid management should be guided by a patient? s ASCVD risk, goals and preferences. ACC/AHA Guidelines recommend high intensity statin if clinical ASCVD or LDL greater than or equal to 190 mg/dL. http://Storee.com/ERV-TXO-Yvwoxxptx Adults aged 40-75 with LDL 70-189 mg/dL should have their 10 year ASCVD risk estimated with the ACC/AHA ASCVD risk research and development technician http://tools.acc.org/CMQGO-Wfxg-Ueakfvatm/ Statin should be discussed if risk greater [...] In Lab Sobeida Jimenez MD CHEMISTRY ORDERABLES [facility] [place] [address] * (ABNORMAL) APTT (12/31/2021 12:20 AM EDT) Partial Thromboplastin Time 90(H) 25 - [address] [facility] [...] Performing Organization Address City/[facility]/ZIP Co de Phone Number [facility] [place] [address] * Prothrombin Time (12/31/2021 12:20 AM EDT) Prothrombin Time 12.5 9.4 - 12.[address] [facility] International Normalization Ratio 1.1 [facility] Comment: An INR <2.0 indicates [...] MD HEMATOLOGY ORDERABLE S Performing Organization Address [facility] Co de Phone Number [facility] [place] [address] * (ABNORMAL) pro-Brain Natriuretic Peptide (12/31/2021 12:20 AM EDT) NT-proBNP 2,515(H) <=124 pg/mL [facility] Blood 12/31/2021 12:2 0 AM EDT 12/31/2021 12:41 AM EDT Narrative Resulting Agency Comment Spec In Lab Sobeida Jimenez MD CHEMISTRY ORDERABLES Performing Organization Address [facility]/ZIP Co de Phone Number [facility] [place] [address] * (ABNORMAL) TSH (12/31/2021 12:20 AM EDT) Thyroid Stimulating Hormone 7.36(H) 0.27 - 4.20 mcIU/mL [facility] Comment: Reference Interval (mcIU/mL): Females: ??First Trimester: 0.23-3.88 ??Second Trimester: 0.22-3.90 ??Third Trimester: 0.44-4.66 Blood 12/31/2021 12:2 0 AM EDT 12/31/2021 12:41 AM EDT Narrative Resulting Agency Comment Spec In Lab Sobeida Jimenez MD CHEMISTRY ORDERABLES Performing Organization Address City/[facility] Co de Phone Number [facility] [place] [address] * Phosphorus (12/31/2021 12:20 AM EDT) Phosphorus 3.5 2.5 - 4.5 mg/dL [facility] Blood 12/31/2021 12:2 0 AM EDT 12/31/2021 12:41 AM EDT Narrative Resulting Agency Comment Spec In Lab Sobeida Jimenez MD CHEMISTRY ORDERABLES Performing Organization Address [facility] de Phone Number [facility] [place] [address] * Magnesium (12/31/2021 12:20 AM EDT) Magnesium 0.87 0.69 - 1.07 mmol/L [facility] Blood 12/31/2021 12:2 0 AM EDT 12/31/2021 12:41 AM EDT Narrative Resulting Agency Comment Spec In Lab Sobeida Jimenez MD CHEMISTRY ORDERABLES Performing Organization Address [facility] de Phone Number [facility] [place] [address] * (ABNORMAL) Basic Metabolic Panel (non-fasting) (12/31/2021 12:20 AM EDT) Glucose 88 65 - 199 mg/dL [facility] Comment:Diabetes: >=200 mg/d L plus symptoms Blood Urea Nitrogen 22(H) 8 - 18 mg/dL ST [facility] Creatinine 0.95 0.70 - 1.20 mg/dL [facility] questions. Chloride 110(H) 98 - 107 mmol/L [facility] Carbon Dioxide 17(L) 22 - 31 mmol/L [facility] Anion Gap 13 5 - 15 mmol/L [facility] Calcium 8.5 8.5 - 10.5 mg/dL [facility] Est Glomerular Filtration Rate 72 >=60 mL/min/1. 73 m?? [facility] In Lab Sobeida Jimenez MD CHEMISTRY ORDERABLES [facility] [place] [address] documented in this encounter Visit Diagnoses Diagnosis [...] PRN, Starting on Wed12/31/21 at 1614, Until Wed01/01/22 at 1624, Pain, Administer orally with milk [...] on Wed12/31/21 at 0115, Until Discontinued, Routine 021 (Given - Provider: Patricia Jacobs RN)1611 (Given - Provider: Angelina Oquendo RN) DULoxetine DR (Cymbalta) capsule 60 mg 60 mg, Oral, DAILY, First dose on Wed12/31/21 at 0900, Until Discontinued, Routine 0940 (Given - Provider: Angelina Oquendo RN) 09 (Given - Provider: Angelina Oquendo RN) empagliflozin [...] on Aura 01/01/22 at 0900, Until Discontinued 904 (Given - Provid er: Angelina Oquendo RN) gabapentin (Neurontin) capsule 300 mg 300 mg, Oral, NIGHTLY, First dose on Wed12/31/21 at 0130, Until Discontinued, Routine 215 (Given - Provider: Patricia Jacobs RN)2031 (Given - Provider: Patricia Jacobs RN) rOPINIRole (Requip) tablet 1 mg 1 mg, Oral, 2 TIMES DAILY, First dose (after last modification) on Wed12/31/21 at 1600, Until Discontinued, Routine 161 (Given - Provider: Angelina Oquendo, ERWIN)2031 (Given - Provider: Patricia Jacobs RN) sodium [...] on Wed12/31/21 at 0230, Until Discontinued, Routine 022 (Given - Provider: Patricia Jacobs RN)2031 (Given [...] Heparin UFH Level - Per Protocol, Routine 2846 (New Bag - Provider: Patricia Jacobs RN) 0725 (Stopped - Provider: Angelina Oquendo, RN) PRN Medication Order 12/30/2021 12/31/2021 01/01/2022 ibuprofen (Advil) tablet 600 mg 600 mg, Oral, EVERY 6 HOURS PRN, Starting on Wed12/31/21 at 1614, Until Aura 01/01/22 at 1624, Pain, Administer orally with milk or food to minimize GI irritation. Maximum dose of 3,200 mg from all sources in 24 hours, Routine 1623 (Given - Provider: Angelina Oquendo, RN) lidocaine (Xylocaine) 1% (10 mg/mL) injection 3 mg 3 mg (0.3 mL), Subcutaneous, ONCE PRN, 1 dose, Starting on Wed12/30/21 at 2252, Until Aura 10/27/22 at 1624, for discomfort with PIV insertion, Routine nitroGLYcerin (Nitrostat) disintegrating tablet 0.4 mg 0.4 mg, Sublingual, EVERY 5 MIN PRN, Starting on Wed12/30/21 at 2252, Until Wed01/01/22 at 1624, Chest pain, May repeat every [...] Routine documented in this encounter Care Teams Corporation Pilot Relationship Specialty Start Date End Date Polo Pearce PA [address] [place] [address] PCP - General Internal Medicine 06/09/21 documented as of this encounter
--- OUTSIDE RECORDS SUMMARY | 2024-01-24 12:38 | XMS_ITS | Encounter Summary ---
Author Organization [facility] [place] [address] Care Team Providers Care Wardrobe Image Consultant Name Role Phone Polo Pearce Primary Care Provider [phone] Encounter Details Date Type Department Care Team (Late st Contact Info) Description 06/13/2021 Telephone Cardiology at [address] [phone] Chayo Dominguez PA [facility] [place] [address] Social History Tobacco Use Types Packs/Day Years [...] Provider: Dr. Gale Trinh Patient Location: [facility] See Dr. Mejia's telephone encounter note for [...] Of note, she was recently admitted to [facility] for evaluation of angina and discharged 06/08/21. At that time she initially presented to [facility] where she was noted to have a troponin I of 406 which was flat at 411 on repeat and an elevated BNP. EKG showed nonspecific ST changes in the inferolateral leads. She was transferred to [facility] for further evaluation where she underwent a [...] management. Chayo Chappell PA-C Cardiovascular Medicine Pager [phone] 06/13/2021 documented in this encounter Plan of Treatment Upcoming Encounters Date Type Department Care Team (Late st Contact Info) Description 02/10/2024 1:00 PM EST Office Visit Cardiology at [address] [place] [phone] Jaspreet Kinsey MD [facility] [place] [address] documented as of this encounter Visit Diagnoses Not on filedocumented in this encounter Care Teams Wardrobe Image Consultant Relationship Specialty Start Date End Date Polo Pearce PA [address] [place] [address] PCP - General Internal Medicine 06/09/21 documented as of this encounter
--- OUTSIDE RECORDS SUMMARY | 2024-01-24 12:38 | XMS_ITS | Encounter Summary ---
Author Organization [facility] [place] [address] Care Team Providers Care Speech Therapy Director Name Role Phone Polo Pearce Primary Care Provider [phone] Encounter Details Date Type Department Care Team (Late st Contact Info) Description 04/16/2022 Refill Cardiology at [address] [place] [address] Jaspreet Kinsey MD [facility] [place] [address] Social History Tobacco Use Types Packs/Day Years [...] ??Order for CCTA placed by Dr. Kinsey. [facility] will contact you for scheduling. * Telephone Encounter - Brenda Callahan 04/16/2022 4:19 PM EST Pt called needing [...] her tocontinue on this. Phone # Is [phone] documented in this encounter Plan of Treatment Upcoming Encounters Date Type Department Care Team (Late st Contact Info) Description 02/10/2024 1:00 PM EST Office Visit Cardiology at [address] [place] [phone] Jaspreet Kinsey MD [facility] [place] [address] documented as of this encounter Visit Diagnoses Diagnosis Chronic heart failure with preserved ejection fraction Chest pain, unspecified type documented in this encounter Care Teams Speech Therapy Director Relationship Specialty Start Date End Date Polo Pearce PA [address] [place] [id number] PCP - General Internal Medicine 06/09/21 documented as of this encounter
--- OUTSIDE RECORDS SUMMARY | 2024-01-24 12:38 | XMS_ITS | Encounter Summary ---
Author Organization [facility] [place] [address] Care Team Providers Care Airborne Operations Name Role Phone Polo Pearce Primary Care Provider [phone] Reason for Referral * Consultation (Routine) - Closed Specialty Diagnoses / Procedures Referred By Contact Referred To Contact Electrophysiology / Cardiology Diagnoses Supraventricular tachycardia evaluation for AVNRT ablation due to symptomatic SVT with myocardial injury Sandy Serna MD [facility] [place] [address] [facility] [address] [place] [phone] Referral ID Status Reason Start Date Expiration Date V isits Requested Visits Authorized [id number] Closed Consult, Test & Treat 06/14/2021 06/14/2022 1 1 Reason for Visit * Auth/Cert Specialty Diagnoses / Procedures Referred By Jayant harris Referred To Contact Diagnoses NSTEMI (non-ST elevated myocardial infarction) NSTEMI Procedures EMERGENCY IPI Referral ID Status Reason Start Date Expiration Date Visits Re quested Visits Authorized [id number] 1 1 Encounter Details Date Type Department Care Team (Latest Contact Info) Description 06/13/2021 12:35 PM EDT - 06/14/2021 1:22 PM EDT Hospital Encounter [place] [address] Jose Rodrigues MD [facility] [place] [address] Chest pain, unspecified type; Supraventricular tachycardia; Chest [...] depressions on EKG. Indira was transferred [place] [facility] [place]. ?? Of note, the patient was just released from [facility] for chest pain on Wednesday06/09/2021. During that [...] at 0.04 consistent with myocardial injury pattern. [facility] was not pursued as the patient was CP free, has suspected microvascular disease from [facility] 18 months ago and episode was triggered [...] and Lab Data: Discharge Labs: Recent Labs 06/14/2151206/13/21 15206/09/217 06/08/2144006/07/21 1726 WBC 7.0 6.3 7.9 11.3* 12.0* HGB 15.2 16.1* 15.2 13.9 14.5 PLATELET 252 237 334 312 346 Recent Labs 06/14/2151206/13/21 15206/09/2133606/08/2144006/07/21 1726 NA 138 137 137 138 137 K 4.2 4.4 4.1 4.1 4.3 CL 106 102 102 103 101 CO2 19* 17* 22 22 24 BUN 21* 20* 23* 21* 18 CREATININE 0.80 0.88 0.86 0.87 1.07 GLUCOSE 98 77 -- -- -- Recent Labs 06/14/2151206/13/21 1526 06/09/21336 CALCIUM 9.0 9.2 9.3 MAGNESIUM 0.90 0.93 -- PHOS -- 3.6 -- Recent Labs 06/14/21 0506/13/21 2141 06/13/21 1840 06/13/21 1526 06/08/21 1158 06/08/2144006/07/21 1726 CK -- -- -- -- 30 -- 33 TROPONINT 0.04* 0.04* 0.04* < > -- < > -- < > = values in this interval not displayed. Recent Labs 06/13/211525 AST 44* ALT 31* ALKPHOS 70 BILITOT 0.4 BILIDIR 0.1 Recent Labs 06/13/21 152 INR 1.1 Lab Results Component Value Date [...] 8:20 AM Jaspreet Kinsey MD Cardiology at [place] Arrive at: [facility] [address] [phone] Future Orders Complete By Expires NM PET CT Cardiac Pharmacologic Stress and Rest [[id number] Custom] 06/14/2021 10/14/2021 Process Instructions: Scheduling Instructions: Questions: Where will study be performed?: [facility] Radiology Reason for exam and clinical history: concern for microvascular disease vs CAD Clinical information / chavis questions for radiologist: Is the patient ?: No Initial treatment or subsequent treatment?: Stat read required?: Does patient require sedation?: GA rationale: Date of injury if applicable: Requested Time: NM PET CT Cardiac Pharmacologic Stress CT Component [[id number] Custom] 06/14/2021 10/14/2021 Process Instructions: Scheduling Instructions: Questions: Where will study be performed?: [facility] Radiology Reason for exam and clinical history: Study performed for attenuation correction of the stress test. Nuclear Pharmacologic Stress Cardiology (PET CT Mobile) [[id number] CPT(R)] 06/14/2021 10/14/2021 Process Instructions: Order [id number], NM myocardial perfussion scan, pharmacologic, should also be placed for the radiologyportion of the test. Scheduling Instructions: Cardiac perfusion (Stress and Lexiscan) - NPO after midnight, medication instructions per referringphysician. Avoidance of all caffeinated and decaffeinated products (No coffee, teas, chocolate, or cola drinks) for at least 12 hours prior to exam. Questions: Where will study be performed?: [facility] Does the patient have a device?: [...] Center 07/23/2021 8:20 AM Jaspreet Kinsey MD [facility] Cardio [facility] Your Inpatient Medical Team at [facility] Name(s) of your inpatient provider(s): Attending - Jose Rodrigues MD Fellow - Brody Bernard MD Resident - Sandy Serna MD Is Technician - Sha Vale MD Your Primary Care Provider: JOCY Franco [phone] For questions regarding this document or issues relating to this hospitalization on the Medical Service, please contact your inpatient physician through the [facility] Plant Manager . Issues afterhours and on weekends will be handled by the Hospitalist staff on-call. For questions regarding this document or issues relating to this hospitalization on the Medical Service, please contact your inpatient physician through the [facility] Plant Manager . Issues afterhours and on weekends will be handled by the Metallurgical Technician staff on-call. Signed: Sandy Serna Internal Medicine PGY-3 Cardiovascular Medicine S2 Team Pager [phone] documented in this encounter Discharge Instructions * [...] Center 07/23/2021 8:20 AM Jaspreet Kinsey MD [facility] Cardio [facility] Your Inpatient Medical Team at [facility] Name(s) of your inpatient provider(s): Attending - Jose Rodrigues MD Fellow - Brody Bernard MD Resident - Sandy Serna MD Is Technician - Sha Vale MD Your Primary Care Provider: JOCY Franco [phone] For questions regarding this document or issues relating to this hospitalization on the Medical Service, please contact your inpatient physician through the [facility] Plant Manager . Issues afterhours and on weekends [...] as needed. fluticasone propionate (FLONASE) 50 mcg/actuation [place], Suspension 1 spray by Each Nare route [...] FORWARD: possible cardiac cath pain management monitor residential monitor I/O discharge planning as appropriate INDIVIDUALIZED [...] JOHN PCP: JOCY Franco PCP phone #: [phone] ID/Chief Complaint: Indira Roque is a 51 y.o. with hx of HFpEF, MARYLOU, who is admitted from [facility] run of SVT with associated chest pain last night History [...] depressions on EKG. Indira was transferred to [facility] for further evaluation. Of note, the patient was just released from [facility] for chest pain on Wednesday06/09/2021. During that [...] DAILY ??? fluticasone propionate (FLONASE) 50 mcg/actuation [place], Suspension 1 spray, Each Nare, DAILY ??? [...] ??? Clobetasol Rash Family History: Father from [place] s/p multiple coronary stents at Social History: [...] LAD Laboratory: CBC: Recent Labs 06/09/21 0337 06/08/2144006/07/21 1726 WBC 7.9 11.3* 12.0* HGB 15.2 [...] at coronary flow reserve Jose Rodrigues MD, FACC Section of Cardiovascular Medicine [facility] Nuisance Wildlife Trapperdoughnut batter mixer [facility] documented in this encounter Plan of Treatment Upcoming Encounters Date Type Department Care Team (Late st Contact Info) Description 02/10/2024 1:00 PM EST Office Visit Cardiology at [address] [place] [address] Jaspreet Kinsey MD [facility] [place] [place] [address] Scheduled Referrals Name Type Priority Associated Diagnoses [...] Chest pain, unspecified type RAPID COVID-19 PCR ([facility]) Routine 06/13/2021 1:09 PM EDT documented in this encounter Results * Magnesium (06/14/2021 5:13 AM EDT) Magnesium 0.90 0.69 - 1.07 mmol/L [facility] Blood Venous Draw / Unknown 06/14/2021 5:13 AM EDT 06/14/2021 5:25 AM EDT Narrative Resulting Agency Comment Spec In Lab Sandy Serna MD CHEMISTRY ORDER ARABELLA Performing Organization Address [facility] Co de Phone Number [facility] [place] [address] * (ABNORMAL) Troponin (06/14/2021 5:13 AM EDT) Troponin-T 0.04(H) 0.00 - 0.00 ng/mL [facility] Comment: The 99th percentile for [...] ischemia ?? New or presumed new significant XE-anrlsnv-X wave (ST-T) changes or new left bundle [...] additional sample may be indicated. Reference: Third Bentley Definition of Myocardial Infarction. Journal of the [employer] College [employer] 2012;60:1581-98 Blood 06/14/2021 5:13 AM EDT 06/14/2021 5:19 AM EDT Narrative Resulting Agency Comment Spec In Lab Jose Rodrigues MD CHEMISTRY ORDERABLES Performing Organization Address [facility] Co de Phone Number [facility] [place] [address] * Heparin (unfractionated) Level (06/14/2021 5:13 AM EDT) UF Heparin 0.66 IU/mL [facility] Comment: Heparin [...] Lab Jose Rodrigues MD HEMATOLOGY ORDERABLE S [facility] [place] [address] * Differential, Automated (06/14/2021 5:13 AM EDT) [facility] Neutrophil % 62.5 % [facility] Neutrophil Absolute 4.36 1.70 - 6.10 x10(3)/[facility] Lymph % 24.1 % [facility] Lymphocytes Abs 1.7 0.9 - 3.2 x10(3)/[facility] Monocyte % 9.2 % [facility] Monocyte Abs 0.6 0.3 - 0.9 x10(3)/[facility] Eos % 2.9 % [facility] Eosinophils Abs 0.2 0.0 - 0.4 x10(3)/[facility] Basophil % 1.0 % [facility] Baso Absolute 0.1 0.0 - 0.1 x10(3)/[facility] Immature Gran % 0.30 % [facility] Comment: Immature granulocytes(IG's)percentage and absolute count will include metamyelocytes, myelocytes, and promyelocytes. Blood smears from CBCs yielding IG's will be scanned manually for concordance. If this scan disagrees with the automated IG or if promyelocytes are noted, a manual differential will be performed. Immature Gran Absolute 0.02 0.00 - 0.04 x10(3)/mcL [facility] Blood 06/14/2021 5:13 AM EDT 06/14/2021 5:19 AM EDT Narrative Resulting Agency Comment Spec In Lab Sha Vale MD HEMATOLOGY ORDERABLE S [facility] [place] [address] * (ABNORMAL) Hemogram (06/14/2021 5:13 AM EDT) White Blood Cell 7.0 4.0 - 9.5 x10(3)/mc L [facility] Red Blood Cell 4.94 4.00 - 5.21 x10(6)/mc L [facility] Hemoglobin 15.2 11.7 - 15.5 g/dL [facility] Hematocrit 46.5(H) 35.7 - 45.8 % [facility] Mean Cell Volume 94.1 82.6 - 94.4 fL [facility] Mean Cell Hemoglobin 30.8 27.1 - 32.0 pg [facility] Mean Cell Hemoglobin Concentration 32.7 31.7 - 35.0 g/dL [facility] Platelet 252 145 - 357 x10(3)/mc L [facility] RDW Standard Deviation 48.5(H) 37.0 - 46.0 fL [facility] RDW coefficient of variation 14.2(H) 11.5 - 14.1 % [facility] Mean Platelet Volume 10.4 7.6 - 12.9 fL [facility] NRBC% auto 0.0 % [facility] NRBC Absolute 0.000 0.000 - 0.000 x10(3)/mc L [facility] Blood 06/14/2021 5:13 AM EDT 06/14/2021 5:19 AM EDT Narrative Resulting Agency Comment Spec In Lab Sha Vale MD HEMATOLOGY ORDERABLE S [facility] [place] [address] * (ABNORMAL) Basic Metabolic Panel (non-fasting) (06/14/2021 5:13 AM EDT) Glucose 98 65 - 199 mg/dL [facility] Comment:Diabetes: >=200 mg/d L plus symptoms Blood Urea Nitrogen 21(H) 8 - 18 mg/dL [facility] Creatinine 0.80 0.70 - 1.20 mg/dL [facility] Sodium 138 135 - 145 mmol/L [facility] Potassium 4.2 3.5 - 5.0 mmol/L [facility] Comment: Please note: ??Patients with WBC >100,000 may have falsely elevated Potassium levels. ??For accurate Potassium quantification in these patients send serum separator tube (gold top) for subsequent determinations. ??Contact the Clinical Chemistry Laboratory if there are any questions. Chloride 106 98 - 107 mmol/L [facility] Carbon Dioxide 19(L) 22 - 31 mmol/L [facility] Anion Gap 13 5 - 15 mmol/L [facility] Calcium 9.0 8.5 - 10.5 mg/dL [facility] Est Glomerular Filtration Rate 85 >=60 mL/min/1. 73 m?? [facility] Comment: This patient? s estimated [...] In Lab Jose Rodrigues MD CHEMISTRY ORDERABLES [facility] [place] [address] * (ABNORMAL) Troponin (06/13/2021 9:41 PM EDT) Pathologist [facility] Troponin-T 0.04(H) 0.00 - 0.00 ng/mL [facility] Comment: The 99th percentile for [...] ischemia ?? New or presumed new significant EJ-aykklre-B wave (ST-T) changes or new left bundle [...] additional sample may be indicated. Reference: Third Bentley Definition of Myocardial Infarction. Journal of the [employer] College [employer]iology 2012;60:1581-98 Blood 06/13/2021 9:41 PM EDT 06/13/2021 9:55 PM EDT Narrative Resulting Agency Comment Spec In Lab Jose Rodrigues MD CHEMISTRY ORDERABLES Performing Organization Address [facility] Co de Phone Number [facility] [place] [address] * Heparin (unfractionated) Level (06/13/2021 9:41 PM EDT) UF Heparin 0.33 IU/mL [facility] Comment: Heparin [...] HEMATOLOGY ORDERABLE S Performing Organization Address [facility] Co de Phone Number [facility] [place] [address] * XR Chest PA & Lateral (Generic) [...] have questions please contact the health adult caregiver that requested your imaging first. ? Narrative [...] who have questions please contactthe health adult caregiver that requested your imaging first. Electronically signed by: ZENAIDA TAVARES [facility] ([phone]),at 06/14/2021 8:08 AM Jose Rodrigues MD IMG DX ORDERABLES * (ABNORMAL) Troponin (06/13/2021 6:40 PM EDT) Troponin-T 0.04(H) 0.00 - 0.00 ng/mL [facility] Comment: The 99th percentile for [...] ischemia ?? New or presumed new significant GP-sjetcgv-Q wave (ST-T) changes or new left bundle [...] additional sample may be indicated. Reference: Third Bentley Definition of Myocardial Infarction. Journal of the [employer] 2012;60:1581-98 Blood 06/13/2021 6:40 PM EDT 06/13/2021 6:46 PM EDT Narrative Resulting Agency Comment Spec In Lab Jose Rodrigues MD CHEMISTRY ORDERABLES [facility] [place] [address] * T4, free (06/13/2021 3:26 PM EDT) Free T4 1.08 0.93 - 1.70 ng/dL [facility] Comment: Reference Interval (ng/dL): Females: ??First Trimester: 0.97-1.68 ??Second Trimester: 0.77-1.51 ??Third Trimester: 0.77-1.49 Blood 06/13/2021 3:26 PM EDT 06/13/2021 3:52 PM EDT Narrative Resulting Agency Comment Spec In Lab Sha Vale MD CHEMISTRY ORDERABLES Performing Organization Address City/[facility]/ZIP Co de Phone Number [facility] [place] [address] * Heparin (unfractionated) Level (06/13/2021 3:26 PM EDT) UF Heparin <0.04 IU/mL [facility] Comment: Specimen drawn more [...] HEMATOLOGY ORDERABLE S Performing Organization Address [facility]/ZIP Co de Phone Number [facility] [place] [address] * Bilirubin, Direct (06/13/2021 3:26 PM EDT) Bilirubin, Direct 0.1 0.0 - 0.3 mg/dL [facility] Blood Venous Draw / Unknown 06/13/2021 3:26 PM EDT 06/13/2021 3:39 PM EDT Narrative Resulting Agency Comment Spec In Lab Sha Vale MD CHEMISTRY ORDERABLES Performing Organization Address City/[facility]/ZIP Co de Phone Number [facility] [place] [address] * (ABNORMAL) Comprehensive metabolic panel (non-fasting) (06/13/2021 3:26 PM EDT) Glucose 77 65 - 199 mg/dL [facility] Comment:Diabetes: >=200 mg/d L plus symptoms Blood Urea Nitrogen 20(H) 8 - 18 mg/dL [facility] Creatinine 0.88 0.70 - 1.20 mg/dL [facility] Sodium 137 135 - 145 mmol/L [facility] Potassium 4.4 3.5 - 5.0 mmol/L [facility] Comment: Please note: ??Patients with WBC >100,000 may have falsely elevated Potassium levels. ??For accurate Potassium quantification in these patients send serum separator tube (gold top) for subsequent determinations. ??Contact the Clinical Chemistry Laboratory if there are any questions. Chloride 102 98 - 107 mmol/L [facility] Carbon Dioxide 17(L) 22 - 31 mmol/L [facility] Anion Gap 18(H) 5 - 15 mmol/L [facility] Calcium 9.2 8.5 - 10.5 mg/dL [facility] Protein, Total 7.4 6.1 - 8.0 g/dL [facility] Albumin 4.0 3.2 - 5.2 g/dL [facility] Aspartate Aminotransferase 44(H) 0 - 30 unit/L [facility] Alanine Aminotransferase 31(H) 0 - 30 unit/L [facility] Alkaline Phosphatase 70 35 - 105 unit/L [facility] Bilirubin, Total 0.4 0.2 - 1.3 mg/dL [facility] Est Glomerular Filtration Rate 76 >=60 mL/min/1. 73 m?? [facility] Comment: This patient? s estimated [...] Vale MD CHEMISTRY ORDERABLES Performing Organization Address City/[facility]/ZIP Co de Phone Number [facility] [place] [address] * (ABNORMAL) pro-Brain Natriuretic Peptide (06/13/2021 3:26 PM EDT) NT-proBNP 2,479(H) <=124 pg/mL [facility] Blood Venous Draw / Unknown 06/13/2021 3:26 PM EDT 06/13/2021 3:39 PM EDT Narrative Resulting Agency Comment Spec In Lab Sha Vale MD CHEMISTRY ORDERABLES Performing Organization Address [facility]/ZIP Co de Phone Number [facility] [place] [address] * Magnesium (06/13/2021 3:26 PM EDT) Magnesium 0.93 0.69 - 1.07 mmol/L [facility] Blood Venous Draw / Unknown 06/13/2021 3:26 PM EDT 06/13/2021 3:39 PM EDT Narrative Resulting Agency Comment Spec In Lab Sha Vale MD CHEMISTRY ORDERABLES Performing Organization Address City/[facility]/ZIP Co de Phone Number [facility] [place] [address] * Phosphorus (06/13/2021 3:26 PM EDT) Phosphorus 3.6 2.5 - 4.5 mg/dL [facility] Blood Venous Draw / Unknown 06/13/2021 3:26 PM EDT 06/13/2021 3:39 PM EDT Narrative Resulting Agency Comment Spec In Lab Sha Vale MD CHEMISTRY ORDERABLES Performing Organization Address [facility] Co de Phone Number [facility] [place] [address] * APTT (06/13/2021 3:26 PM EDT) Partial Thromboplastin Time 29 25 - 37 sec [facility] [...] S Performing Organization Address [facility] Co de Phone Number [facility] [place] [address] * Prothrombin Time (06/13/2021 3:26 PM EDT) Prothrombin Time 12.4 9.4 - 12.5 sec [facility] International Normalization Ratio 1.1 [facility] Comment: An INR <2.0 indicates [...] ORDERABLE S Performing Organization Address City/[facility]/ZIP Co de Phone Number [facility] [place] [address] * (ABNORMAL) [facility] [place] (06/13/2021 3:26 PM EDT) [facility] Thyroid Stimulating Hormone 6.47(H) 0.27 - 4.20 mcIU/mL [facility] Comment: Reference Interval (mcIU/mL): Females: ??First Trimester: 0.23-3.88 ??Second Trimester: 0.22-3.90 ??Third Trimester: 0.44-4.66 Blood 06/13/2021 3:26 PM EDT 06/13/2021 3:37 PM EDT Narrative Resulting Agency Comment Spec In Lab Jose Rodrigues MD CHEMISTRY ORDERABLES [facility] [place] [address] * Differential, Automated (06/13/2021 3:26 PM EDT) [facility] Neutrophil % 64.4 % [facility] Neutrophil Absolute 4.05 1.70 - 6.10 x10(3)/[facility] Lymph % 22.6 % [facility] Lymphocytes Abs 1.4 0.9 - 3.2 x10(3)/[facility] Monocyte % 10.0 % [facility] Monocyte Abs 0.6 0.3 - 0.9 x10(3)/[facility] Eos % 1.8 % [facility] Eosinophils Abs 0.1 0.0 - 0.4 x10(3)/[facility] Basophil % 1.0 % [facility] Baso Absolute 0.1 0.0 - 0.1 x10(3)/[facility] Immature Gran % 0.20 % [facility] Comment: Immature granulocytes(IG's)percentage and absolute count will include metamyelocytes, myelocytes, and promyelocytes. Blood smears from CBCs yielding IG's will be scanned manually for concordance. If this scan disagrees with the automated IG or if promyelocytes are noted, a manual differential will be performed. Immature Gran Absolute 0.01 0.00 - 0.04 x10(3)/mcL [facility] Blood 06/13/2021 3:26 PM EDT 06/13/2021 3:37 PM EDT Narrative Resulting Agency Comment Spec In Lab Sha Vale MD HEMATOLOGY ORDERABLE S [facility] [place] [address] * (ABNORMAL) Hemogram (06/13/2021 3:26 PM EDT) White Blood Cell 6.3 4.0 - 9.5 x10(3)/[facility] Red Blood Cell 5.27(H) 4.00 - 5.21 x10(6)/[facility] Hemoglobin 16.1(H) 11.7 - 15.5 g/dL [facility] Hematocrit 49.7(H) 35.7 - 45.8 % [facility] Mean Cell Volume 94.3 82.6 - 94.4 fL [facility] Mean Cell Hemoglobin 30.6 27.1 - 32.0 pg [facility] Mean Cell Hemoglobin Concentration 32.4 31.7 - 35.0 g/dL [facility] Platelet 237 145 - 357 x10(3)/[facility] RDW Standard Deviation 49.1(H) 37.0 - 46.0 fL [facility] RDW coefficient of variation 14.2(H) 11.5 - 14.1 % [facility] Mean Platelet Volume 11.3 7.6 - 12.9 fL [facility] NRBC% auto 0.0 % [facility] NRBC Absolute 0.000 0.000 - 0.000 x10(3)/ L [facility] Blood 06/13/2021 3:26 PM EDT 06/13/2021 3:37 PM EDT Narrative Resulting Agency Comment Spec In Lab Sha Vale MD HEMATOLOGY ORDERABLE S Performing Organization Address [facility] Co de Phone Number [facility] [place] [address] * (ABNORMAL) Troponin (06/13/2021 3:26 PM EDT) Troponin-T 0.04(H) 0.00 - 0.00 ng/mL [facility] Comment: The 99th percentile for [...] ischemia ?? New or presumed new significant PJ-jxxazsm-Z wave (ST-T) changes or new left bundle [...] additional sample may be indicated. Reference: Third Bentley Definition of Myocardial Infarction. Journal of the [employer] 2012;60:1581-98 Blood 06/13/2021 3:26 PM EDT 06/13/2021 3:37 PM EDT Narrative Resulting Agency Comment Spec In Lab Jose Rodrigues MD CHEMISTRY ORDERABLES Performing Organization Address [facility] [facility] Co de Phone Number [facility] [place] [address] * EKG 12 Lead (06/13/2021 2:18 PM EDT) Ventricular rate 48 BPM MUSE SYSTEM Atrial Rate 48 BPM MUSE SYSTEM P-R Interval 196 ms MUSE SYSTEM QRS Duration 84 ms MUSE SYSTEM Q-T Interval 498 ms MUSE SYSTEM QTC Calculated (Bezet) 444 ms MUSE SYSTEM Calculated P [place] 1 degrees MUSE SYSTEM Calculated R [place] 27 degrees MUSE SYSTEM Calculated T [place] -27 degrees MUSE SYSTEM INTERPRETATION Sinus bradycardia Nonspecific ST and T wave abnormality Abnormal ECG When compared with ECG of 07-JUN-2021 16:33, No significant change was found I personally reviewed the tracing and edited the fellows interpretation Confirmed by fellow Jaspreet Grimm ([id number]) on 06/16/2021 1:34:45 PM Confirmed by MD Angelo Danette ([id number]) on 06/16/2021 1:39:20 PM MUSE SYSTEM 06/13/2021 2:18 PM EDT 06/16/2021 1:39 PM EDT Jose Rodrigues MD ECG ORDERABLES MUSE SYSTEM * COVID-19 PCR (06/13/2021 1:09 PM EDT) Pathologist [facility] SARS-CoV-2 RNA (Rapid) Not Detected Not Detected [facility] Comment: This result should be [...] using the Simplexa COVID-19 Direct Assay by [employer] as authorized by the FDA issued Emergency [...] Department of Pathology and Laboratory Medicine at [facility], certified under the Clinical [...] fact sheets at the following FDA website: https://www.fda.gov/medical-devices/wkvcugvptjr-dugwguj-7965-jqley-17-oupeyjlvd- use-a ffmhlzoukxevb-fvawozy-pideasc/hilvy-rvuyzlzlifk-bczh SARS-CoV-2 Source SURFACER OPERATOR Swab [place] [facility] Nasopharyngeal Swab 06/14/19 1:09 PM EDT 06/13/2021 1:45 PM EDT Comment:Symptoms->Surveillan ce Narrative Resulting Agency Comment Spec In Lab Jose Rodrigues MD MICROBIOLOGY - GENER AL ORDERABLES [facility] [place] [address] documented in this encounter Visit Diagnoses Diagnosis [...] on Wed06/13/21 at 1430, Until Discontinued, Routine 1415 (Given - Provider: Katalina Wilkinson RN) 09 (Given - Provider: Katalina Wilkinson RN) metoprolol tartrate (Lopressor) tablet 12.5 mg 12.5 mg, Oral, EVERY 12 HOURS SCHEDULED (2 times per day), First dose on Wed06/13/21 at 2100, Until Discontinued, Hold for sbp<90, hr<60, Routine 2056 (Given - Provider: Dee Raymond RN) 1021 (Given - Provider: Katalina Wilkinson RN - [...] on Wed06/14/21 at 0900, Until Discontinued, Routine 941 (Given [...] Units/hr (0-100 mL/hr), Intravenous, CONTINUOUS, Starting on 06/13/21 at 1530, Until 06/14/21 at 0917, Begin [...] 1536 (New Bag - Provider: Katalina Wilkinson RN)1999 (Rate/Dose Verify - Provider: Dee Raymond RN)2140 (Rate/Dose Verify - Provider: Dee Raymond RN)2200 [...] Routine documented in this encounter Care Teams Airborne Operations Relationship Specialty Start Date End Date Polo Pearce PA [address] [place] [address] PCP - General Internal Medicine 06/09/21 documented as of this encounter
--- OUTSIDE RECORDS SUMMARY | 2024-01-24 12:38 | XMS_ITS | Encounter Summary ---
Author Organization [facility] [place] [address] Care Team Providers Care Automatic Profile Shaper Operator Name Role Phone Polo Pearce Primary Care Provider [phone] Encounter Details Date Type Department Care Team (Late st Contact Info) Description 06/30/2022 Orders Only Cardiology at [address] [address] Jaspreet Kinsey MD [facility] [place] [address] Chest pain, unspecified type Social History Tobacco [...] 1:00 PM EST Office Visit Cardiology at [address] [phone] Jaspreet Kinsey MD [facility] [place] [address] documented as of this encounter Visit Diagnoses Diagnosis Chest pain, unspecified type documented in this encounter Care Teams Automatic Profile Shaper Operator Relationship Specialty Start Date End Date Polo Pearce PA [address] [place] [address] PCP - General Internal Medicine 06/09/21 documented as of this encounter
--- OUTSIDE RECORDS SUMMARY | 2024-01-24 12:38 | XMS_ITS | Encounter Summary ---
Author Organization [facility] [place] [address] Care Team Providers Care Metal Can Inspector Name Role Phone Polo Pearce Primary Care Provider [phone] Encounter Details Date Type Department Care Team (Late st Contact Info) Description 12/30/2021 Telephone Cardiology at [address] [address] Ciro Lovell MD [facility] [place] [address] Social History Tobacco Use Types Packs/Day Years [...] 51 year old female with mild PAH ([facility] 06/2021) without e/o parenchymal lung [...] mild restriction, normal diffusion; no volumes done [place] 2019 clean coronaries [facility] 06/2021 Hemodynamics: Right [...] 1:00 PM EST Office Visit Cardiology at [address] [place] [address] Jaspreet Kinsey MD [facility] [place] [address] documented as of this encounter Visit Diagnoses Not on filedocumented in this encounter Care Teams Metal Can Inspector Relationship Specialty Start Date End Date Polo Pearce PA [address] [place] [address] PCP - General Internal Medicine 06/09/21 documented as of this encounter
--- OUTSIDE RECORDS SUMMARY | 2024-01-24 12:38 | XMS_ITS | Encounter Summary ---
[place] [address] Care Team Providers Care Digital Pre Press Operator Name Role Phone Polo Pearce Primary Care Provider [phone] Encounter Details Date Type Department Care Team (Late st Contact Info) Description 03/11/2022 Telephone Cardiology at [address] [phone] Mary Motta, RN Social History Tobacco Use [...] ESTSummary: Pre Procedure Call: SVT Ablation EP SOFTWARE DEVELOPER MANAGER COORDINATION CHECKLIST Patient Name: Indira Roque Patient Performing School Bus Driver/Teacher Assistant: Jed Tovar Referring Provider: Sobeida Jimenez Date of Procedure: 03/23/22 Arrival Time/ Case Time: 6:00 am / 7:30 am Check In Location: [employer] Sewing Machine Operator Desk 4W Date Patient was [...] overnight , understands that they will need entry level truck driver on day of discharge Notified pt that Esqueda catheter may be placed on day of procedure depending on type & duration of case. Special Notes/Considerations: Given fequent ED visits to [facility] within the past 4 days, will contact pt next week (03/18) to see howsymptoms are progressing. If still having pain, issues will need to reschedule procedure per Dr. Tovar documented in this encounter Plan of Treatment Upcoming Encounters Date Type Department Care Team (Late st Contact Info) Description 02/10/2024 1:00 PM EST Office Visit Cardiology at [address] [place] [phone] Jaspreet Kinsey MD [facility] [place] [address] documented as of this encounter Visit Diagnoses Not on filedocumented in this encounter Care Teams Digital Pre Press Operator Relationship Specialty Start Date End Date Polo Pearce PA [address] [place] [address] PCP - General Internal Medicine 06/09/21 documented as of this encounter
--- OUTSIDE RECORDS SUMMARY | 2024-01-24 12:38 | XMS_ITS | Encounter Summary ---
Author Organization [facility] [place] [address] Care Team Providers Care Safe And Vault Service Mechanic Name Role Phone Polo Pearce Primary Care Provider [phone] Encounter Details Date Type Department Care Team (Late st Contact Info) Description 03/17/2022 Telephone Cardiology at [address] [address] Jaspreet Kinsey MD [facility] [place] [address] Social History Tobacco Use Types Packs/Day Years [...] the new one. Please call her @ [phone]. documented in this encounter Plan of Treatment Upcoming Encounters Date Type Department Care Team (Late st Contact Info) Description 02/10/2024 1:00 PM EST Office Visit Cardiology at [address] [place] [address] Jaspreet Kinsey MD [facility] [place] [address] documented as of this encounter Visit Diagnoses Not on filedocumented in this encounter Care Teams Safe And Vault Service Mechanic Relationship Specialty Start Date End Date Polo Pearce PA [address] [place] [address] PCP - General Internal Medicine 06/09/21 documented as of this encounter
--- OUTSIDE RECORDS SUMMARY | 2024-01-24 12:38 | XMS_ITS | Encounter Summary ---
Author Organization [facility] [place] [address] Care Team Providers Care Leather Stretcher Name Role Phone Polo Pearce Primary Care Provider [phone] Encounter Details Date Type Department Care Team (Late st Contact Info) Description 09/16/2021 Telephone Cardiology at [address] [phone] Jaspreet Kinsey MD [facility] [place] [address] Social History Tobacco Use Types Packs/Day Years [...] so can she have it here at [facility]. She left her work number for calling her back during the day: [phone]. Or you may leave a message on her cell phone: [phone]. documented in this encounter Plan of Treatment Upcoming Encounters Date Type Department Care Team (Late st Contact Info) Description 02/10/2024 1:00 PM EST Office Visit Cardiology at [address] [place] [address] Jaspreet Kinsey MD [facility] [place] [address] documented as of this encounter Visit Diagnoses Not on filedocumented in this encounter Care Teams Leather Stretcher Relationship Specialty Start Date End Date Polo Pearce PA [address] [place] [address] PCP - General Internal Medicine 06/09/21 documented as of this encounter
--- OUTSIDE RECORDS SUMMARY | 2024-01-24 12:38 | XMS_ITS | Encounter Summary ---
Author Organization [facility] [place] [address] Care Team Providers Care Breakdown Person Name Role Phone Polo Pearce Primary Care Provider [phone] Encounter Details Date Type Department Care Team (Late st Contact Info) Description 06/24/2022 Telephone Cardiology at [address] [address] Jaspreet Kinsey MD [facility] [place] [address] Social History Tobacco Use Types Packs/Day Years [...] Aide Glass - 06/30/2022 11:54 AM EDT [facility] is faxing over her ER [...] Best # to reach her is work [phone] documented in this encounter Plan of Treatment Upcoming Encounters Date Type Department Care Team (Late Contact Info) Description 02/10/2024 1:00 PM EST Office Visit Cardiology at [address] [place] [address] Jaspreet Kinsey MD [facility] [place] [place] [address] documented as of this encounter Visit Diagnoses Not on filedocumented in this encounter Care Teams Breakdown Person Relationship Specialty Start Date End Date Polo Pearce PA [address] [place] [address] PCP - General Internal Medicine 06/09/21 documented as of this encounter
--- OUTSIDE RECORDS SUMMARY | 2024-01-24 12:38 | XMS_ITS | Encounter Summary ---
[place] [address] Care Team Providers Care Burglar Alarm Operator Name Role Phone Polo Pearce Primary Care Provider [phone] Reason for Visit * Reason Onset Date Comments Follow-up 03/18/2022 Encounter Details Date Type Department Care Team (Late st Contact Info) Description 03/18/2022 Telephone Cardiology at [address] [address] Mary Motta, RN Follow-up Social [...] Dr. Tovar Pt saw Dr. Kinsey (primary dictaphone transcriber on 03/16) where pt was known to [...] 1:00 PM EST Office Visit Cardiology at [address] [place] [phone] Jaspreet Kinsey MD [facility] [place] [address] documented as of this encounter Visit Diagnoses Not on filedocumented in this encounter Care Teams Burglar Alarm Operator Relationship Specialty Start Date End Date Polo Pearce PA [address] [place] [address] PCP - General Internal Medicine 06/09/21 documented as of this encounter
--- OUTSIDE RECORDS SUMMARY | 2024-01-24 12:38 | XMS_ITS | Encounter Summary ---
Author Organization [facility] [place] [address] Care Team Providers Care Regulatory Affairs Coordinator Name Role Phone Polo Pearce Primary Care Provider [phone] Encounter Details Date Type Department Care Team (Late st Contact Info) Description 03/11/2022 Orders Only Cardiology at [address] [address] Jed Tovar MD [facility] [place] [address] SVT (supraventricular tachycardia) Social History Tobacco Use [...] PM EST Office Visit Cardiology at [address] [address] Jaspreet Kinsey MD [facility] [place] [address] documented as of this encounter Visit Diagnoses Diagnosis SVT (supraventricular tachycardia) Other specified cardiac dysrhythmias documented in this encounter Care Teams Regulatory Affairs Coordinator Relationship Specialty Start Date End Date Polo Pearce PA [address] [place] [address] PCP - General Internal Medicine 06/09/21 documented as of this encounter
--- OUTSIDE RECORDS SUMMARY | 2024-01-24 12:38 | XMS_ITS | Encounter Summary ---
Author Organization [facility] [place] [address] Care Team Providers Care Parish Visitor Name Role Phone Polo Pearce Primary Care Provider [phone] Encounter Details Date Type Department Care Team (Late st Contact Info) Description 12/30/2021 8:00 PM EDT Ancillary Procedure Radiology Library at [facility] [place] [address] Jaspreet Kinsey MD [facility] [place] [address] Social History Tobacco Use Types Packs/Day Years [...] PM EST Office Visit Cardiology at [address] [place] [address] Jaspreet Kinsey MD [facility] [place] [address] documented as of this encounter Procedures Procedure Name Priority Date/Time Associated Diagnosis Comments FILM LIBRARY STORAGE ONLY CT CHEST Routine 12/30/2021 7:55 PM EDT documented in this encounter Results * Film Library- Storage Only CT Chest (12/30/2021 7:55 PM EDT) Narrative RAD - 12/30/2021 7:55 PM EDT This exam is auto-finalizing. It's purpose is for storage only. Jaspreet Kinsey MD G FILM LIBRARY ORD ERABLES [place], [place] documented in this encounter Visit Diagnoses Not on filedocumented in this encounter Care Teams Parish Visitor Relationship Specialty Start Date End Date Polo Pearce PA [address] [place] [address] PCP - General Internal Medicine 06/09/21 documented as of this encounter
--- OUTSIDE RECORDS SUMMARY | 2024-01-24 12:38 | XMS_ITS | Encounter Summary ---
[place] [address] Care Team Providers Care Medical Office Receptionist Name Role Phone Polo Pearce Primary Care Provider [phone] Reason for Referral * Diagnostic Test (Routine) - Closed Specialty Diagnoses / Procedures Referred By Contac t Referred To Contact Diagnoses Pulmonary embolism, unspecified chronicity, unspecified pulmonary embolism type, unspecified whether acute cor pulmonale present Procedures Duplex Study for DVT, Bilat legs Mamie Marx APRN [facility] [address] [facility] [address], [place] [address] Referral ID Status Reason Start Date Expiration Date V isits Requested Visits Authorized [id number] Closed Specialty Service Requested 07/31/2022 07/31/2023 1 1 Encounter Details Date Type Department Care Team (Late st Contact Info) Description 07/31/2022 Orders Only [place] [address] Mamie Marx APRN [facility] [address] Pulmonary embolism, unspecified chronicity, unspecified pulmonary embolism [...] 1:00 PM EST Office Visit Cardiology at [address] [place] [address] Jaspreet Kinsey MD [facility] [place] [address] documented as of this encounter Results * Duplex Study for DVT, Bilat legs (10/20/2022 8:06 AM EDT) VB Text Report Department: Vascular Surgery Lab Patient: [id number] (LOIDA ROQUE) CPT: [id number] Referring Physician: MAMIE MARX ?? Phone: Indications: [...] Pearce PA [address] [place] [address] PCP - General Internal Medicine 06/09/21 documented as of this encounter
--- OUTSIDE RECORDS SUMMARY | 2024-01-24 12:38 | XMS_ITS | Encounter Summary ---
Author Organization [facility] Address [facility] [place] [address] Care Team Providers Care Nurse Aide Name Role Phone Polo Pearce Primary Care Provider [phone] Reason for Visit * Reason Onset Date Comments Chest Pain 03/11/2022 Encounter Details Date Type Department Care Team (Late st Contact Info) Description 03/11/2022 Telephone Cardiology at [address] [address] Jaspreet Kinsey MD [facility] [place] [address] Chest Pain Social History Tobacco Use Types [...] UTI, URI symptoms Requesting discharge summary(s) from [facility] from this week. Plan: to determine the indication and goals for this follow up cardiology appointment. From consultation by [facility] with Vianey Mike on 03/10/2021: Patient's chest [...] and blood in urine. Her number is [phone] should you have any questions. I looked in the chart and looks like we still need those records documented in this encounter Plan of Treatment Upcoming Encounters Date Type Department Care Team (Late st Contact Info) Description 02/10/2024 1:00 PM EST Office Visit Cardiology at [address] [place] [phone] Jaspreet Kinsey MD [facility] [place] [address] documented as of this encounter Visit Diagnoses Not on filedocumented in this encounter Care Teams Nurse Aide Relationship Specialty Start Date End Date Polo Pearce PA [address] [place] [address] PCP - General Internal Medicine 06/09/21 documented as of this encounter
--- OUTSIDE RECORDS SUMMARY | 2024-01-24 12:38 | XMS_ITS | Encounter Summary ---
Author Organization [facility] Address [facility] [place] [address] Care Team Providers Care Manager Of Disaster Recovery Name Role Phone Polo Pearce Primary Care Provider [phone] Encounter Details Date Type Department Care Team (Late st Contact Info) Description 12/30/2021 External Results [place] [address] Social History Tobacco Use Types Packs/Day Years [...] PM EST Office Visit Cardiology at [address] [address] Jaspreet Kinsey MD [facility] [place] [address] documented as of this encounter Procedures Procedure Name Priority Date/Time Associated Diagnosis Comments ECG SCAN Routine 12/30/2021 documented in this encounter Results * Scan Doc: ECG (12/30/2021) Historical Provider MEDIA MGR SCAN EX T ORDR/RSLT documented in this encounter Visit Diagnoses Not on filedocumented in this encounter Care Teams Manager Of Disaster Recovery Relationship Specialty Start Date End Date Polo Pearce PA [address] [place] [address] PCP - General Internal Medicine 06/09/21 documented as of this encounter
--- OUTSIDE RECORDS SUMMARY | 2024-01-24 12:38 | XMS_ITS | Encounter Summary ---
Author Organization [facility] [place] [address] Care Team Providers Care Radio Interference Trouble Shooter Name Role Phone Polo Pearce Primary Care Provider [phone] Encounter Details Date Type Department Care Team (Late st Contact Info) Description 09/17/2021 Telephone Cardiology at [address] [address] Jaspreet Kinsey MD [facility] [address] Social History Tobacco Use Types Packs/Day Years [...] Please call on her work phone @ [phone]. Or you may leave a message on her cell phone @ [phone] documented in this encounter Plan of Treatment Upcoming Encounters Date Type Department Care Team (Late st Contact Info) Description 02/10/2024 1:00 PM EST Office Visit Cardiology at [address] [place] [address] Jaspreet Kinsey MD [facility] [place] [address] documented as of this encounter Visit Diagnoses Not on filedocumented in this encounter Care Teams Radio Interference Trouble Shooter Relationship Specialty Start Date End Date Polo Pearce PA [address] [place] [address] PCP - General Internal Medicine 06/09/21 documented as of this encounter
--- OUTSIDE RECORDS SUMMARY | 2024-01-24 12:38 | XMS_ITS | Encounter Summary ---
Author Organization [facility] [place] [address] Care Team Providers Care Labor Specialist Name Role Phone Polo Pearce Primary Care Provider [phone] Reason for Visit * Reason Onset Date Comments Ascites 07/28/2022 Chest Pain 07/28/2022 Encounter Details Date Type Department Care Team (Late st Contact Info) Description 07/28/2022 Telephone Cardiology at [address] [address] Jaspreet Kinsey MD [facility] [place] [address] Ascites; Chest Pain Social History Tobacco Use [...] 10:10 AM EDT Indira is inpatient at [facility] today. Nurse Madison indicates she [...] Creat 1.3 Plan: will remain inpatient at [facility] Outpatient CT heart planned on July 30 - cancel and reschedule (notified [facility] card lab [place]) documented in this encounter Plan of Treatment Upcoming Encounters Date Type Department Care Team (Late st Contact Info) Description 02/10/2024 1:00 PM EST Office Visit Cardiology at [address] [place] [address] Jaspreet Kinsey MD [facility] [place] [place] [address] documented as of this encounter Visit Diagnoses Not on filedocumented in this encounter Care Teams Labor Specialist Relationship Specialty Start Date End Date Polo Pearce PA [address] [place] [address] PCP - General Internal Medicine 06/09/21 documented as of this encounter
--- OUTSIDE RECORDS SUMMARY | 2024-01-24 12:38 | XMS_ITS | Encounter Summary ---
Author Organization [facility] [place] [address] Care Team Providers Care Fuel Yard Operator Name Role Phone Polo Pearce Primary Care Provider [phone] Encounter Details Date Type Department Care Team (Late st Contact Info) Description 07/29/2022 9:45 PM EDT Ancillary Procedure Radiology Library at [facility] [place] [address] Marcia Kamara MD [facility] [place] [address] Social History Tobacco Use Types Packs/Day Years [...] PM EST Office Visit Cardiology at [address] [place] [address] Jaspreet Kinsey MD [facility] [place] [address] documented as of this encounter Procedures Procedure Name Priority Date/Time Associated Diagnosis Comments FILM LIBRARY STORAGE ONLY CT CHEST Routine 07/29/2022 9:43 PM EDT documented in this encounter Results * Film Library- Storage Only CT Chest (07/29/2022 9:43 PM EDT) Narrative RAD - 07/29/2022 9:43 PM EDT This exam is auto-finalizing. It's purpose is for storage only. Marcia Kamara MD IMG FILM LIBRARY ORD ERABLES [place], [place] documented in this encounter Visit Diagnoses Not on filedocumented in this encounter Care Teams Fuel Yard Operator Relationship Specialty Start Date End Date Polo Pearce PA [address] [place] [address] PCP - General Internal Medicine 06/09/21 documented as of this encounter
--- OUTSIDE RECORDS SUMMARY | 2024-01-24 12:38 | XMS_ITS | Encounter Summary ---
Author Organization [facility] Address [facility] [place] [address] Care Team Providers Care Rcp Name Role Phone Polo Pearce Primary Care Provider [phone] Reason for Visit * Reason Comments Congestive Heart Failure HFpEF Palpitations SVT/AVNRT * Consultation (Routine) - Closed Specialty Diagnoses / Procedures Referred By Jayant harris Referred To Contact Cardiology Diagnoses HFp EF Procedures NEW PATIENT Mario Hallman MD [facility] [place] [address] Jaspreet Kinsey MD [facility] [place] [address] Referral ID Status Reason Start Date Expiration Date Visits Re quested Visits Authorized [id number] Closed 07/23/2021 07/23/2022 1 1 Encounter Details Date Type Department Care Team (Late st Contact Info) Description 07/23/2021 8:20 AM EDT Office Visit Cardiology at [address] [address] Jaspreet Kinsey MD [facility] [place] [address] Heart failure with preserved ejection fraction, unspecified [...] preserved ejection fraction 05/2021: [facility] needed. ??? fluticasone propionate (FLONASE) 50 mcg/actuation [place], Suspension 1 spray by Each Nare route [...] for hfpef and svt She presented to [facility] end of May with subacute RUQ pain [...] PM EST Office Visit Cardiology at [address] [place] [phone] Jaspreet Kinsey MD [facility] [address] documented as of this encounter Visit Diagnoses Diagnosis Heart failure with preserved ejection fraction, unspecified HF chronicity SVT (supraventricular tachycardia) Other specified cardiac dysrhythmias documented in this encounter Care Teams Rcp Relationship Specialty Start Date End Date Polo Pearce PA Sb MOTT [address] [place] [address] PCP - General Internal Medicine 06/09/21 documented as of this encounter
--- OUTSIDE RECORDS SUMMARY | 2024-01-24 12:38 | XMS_ITS | Encounter Summary ---
Author Organization Replaced By [facility] [place] [address] Care Team Providers Care Centrifugal Wax Molder Name Role Phone Polo Pearce Primary Care Provider [phone] Reason for Referral * Consultation (Routine) - Closed Specialty Diagnoses / Procedures Referred By Jayant harris Referred To Contact Vascular Surgery Diagnoses Pulmonary embolism, unspecified chronicity, unspecified pulmonary embolism type, unspecified whether acute cor pulmonale present ROUTINE, SALVATORE, BLE DVT Vascular medicine PE clinic: seemingly unprovoked small PE. review consideration of hypercoagulability testing Jaspreet Kinsey MD [facility] [place] [address] Elvin Maya MD [facility] [place] [address] Referral ID Status Reason Start Date Expiration Date V isits Requested Visits Authorized [id number] Closed Consult, Test & Treat 07/30/2022 07/30/2023 1 1 Reason for Visit * Reason Comments Coronary Artery Disease Congestive Heart Failure HFpEF Chest Pain Encounter Details Date Type Department Care Team (Late st Contact Info) Description 07/30/2022 9:20 AM EDT Office Visit Cardiology at [address] [place] [phone] Jaspreet Kinsey MD [facility] [place] [address] Heart failure with preserved ejection fraction, unspecified [...] Intercurrently, patient presented earlier this week to [facility] with an abrupt increase in [...] a significant increase in UOP; however, at [facility] notes they gave me something [...] DAYS ??? fluticasone propionate (FLONASE) 50 mcg/actuation [place], Suspension 1 spray, Each Nare, DAILY ??? [...] discharge summary and medication administration record from [facility] to see what was given [...] discharge summary and medication administration record from [facility] to see what was given to her to effect UOP positively - Diuresis: bumex 1 qd - Cardioprotection: - SGLT2i: jardiance - MRA: aldactone 25 documented in this encounter Plan of Treatment Upcoming Encounters Date Type Department Care Team (Late st Contact Info) Description 02/10/2024 1:00 PM EST Office Visit Cardiology at [address] [address] Jaspreet Kinsey MD [facility] [place] [address] Scheduled Referrals Name Type Priority Associated Diagnoses [...] dysrhythmias documented in this encounter Care Teams Centrifugal Wax Molder Relationship Specialty Start Date End Date Polo Pearce PA [address] [place] [address] PCP - General Internal Medicine 06/09/21 documented as of this encounter
--- OUTSIDE RECORDS SUMMARY | 2024-01-24 12:38 | XMS_ITS | Encounter Summary ---
Author Organization [facility] [address] Care Team Providers Care Marketing Budget Analyst Name Role Phone Polo Pearce Primary Care Provider [phone] Encounter Details Date Type Department Care Team (Late st Contact Info) Description 07/07/2022 Telephone Cardiology at [address] [address] Jaspreet Kinsey MD [facility] [place] [address] Social History Tobacco Use Types Packs/Day Years [...] PM EST Office Visit Cardiology at [address] [place] [address] Jaspreet Kinsey MD [facility] [address] documented as of this encounter Visit Diagnoses Not on filedocumented in this encounter Care Teams Marketing Budget Analyst Relationship Specialty Start Date End Date Polo Pearce PA [address] [place] [address] PCP - General Internal Medicine 06/09/21 documented as of this encounter
--- OUTSIDE RECORDS SUMMARY | 2024-01-24 12:38 | XMS_ITS | Encounter Summary ---
Author Organization [facility]ly [facility] Address [facility] [place] [address] Care Team Providers Care Electric Motor Tester Assembler Name Role Phone Polo Pearce Primary Care Provider [phone] Encounter Details Date Type Department Care Team (Late st Contact Info) Description 03/19/2022 Telephone Cardiology at [address] [address] Jed Tovar MD [facility] [place] [address] Social History Tobacco Use Types Packs/Day Years [...] for two weeks. Has been admitted to [facility] ED for this with rule out of aorta dissection. However, pain continues. Dr. Kinsey of [facility] cardiology has just begun diuretic therapy, in [...] up per Dr. Kinsey. Jed Tovar MD [facility] Cardiac Electrophysiology 03/19/2022 1:27 PM documented in this encounter Plan of Treatment Upcoming Encounters Date Type Department Care Team (Late st Contact Info) Description 02/10/2024 1:00 PM EST Office Visit Cardiology at [address] [place] [phone] Jaspreet Kinsey MD [facility] [place] [address] documented as of this encounter Visit Diagnoses Not on filedocumented in this encounter Care Teams Electric Motor Tester Assembler Relationship Specialty Start Date End Date Polo Pearce PA [address] [place] [address] PCP - General Internal Medicine 06/09/21 documented as of this encounter
--- OUTSIDE RECORDS SUMMARY | 2024-01-24 12:38 | XMS_ITS | Encounter Summary ---
Author Organization [facility] Address [facility] [place] [address] Care Team Providers Care Slate Roofer Name Role Phone Polo Pearce Primary Care Provider [phone] Encounter Details Date Type Department Care Team (Late st Contact Info) Description 03/10/2022 External [place] [address] Social History Tobacco Use Types Packs/Day Years [...] PM EST Office Visit Cardiology at [address] [place] [address] Jaspreet Kinsey MD [facility] [place] [place] [address] documented as of this encounter Procedures Procedure Name Priority Date/Time Associated Diagnosis Comments ECG SCAN Routine 03/10/2022 documented in this encounter Results * Scan Doc: ECG (03/10/2022) Historical Provider MEDIA MGR SCAN EX T ORDR/RSLT documented in this encounter Visit Diagnoses Not on filedocumented in this encounter Care Teams Slate Roofer Relationship Specialty Start Date End Date Polo Pearce PA [address] [place] [address] PCP - General Internal Medicine 06/09/21 documented as of this encounter
--- OUTSIDE RECORDS SUMMARY | 2024-01-24 12:38 | XMS_ITS | Encounter Summary ---
Author Organization [facility] [place] [address] Care Team Providers Care Rf Microwave Engineer Name Role Phone Polo Pearce Primary Care Provider [phone] Encounter Details Date Type Department Care Team (Late st Contact Info) Description 08/08/2021 Orders Only Cardiology at [address] [address] Umberto Joy PA [facility] [place] [address] AVNRT (AV makayla re-entry tachycardia) (Primary Dx); [...] PM EST Office Visit Cardiology at [address] [phone] Jaspreet Kinsey MD [facility] [place] [address] documented as of this encounter Visit Diagnoses Diagnosis AVNRT (AV makayla re-entry tachycardia)- Primary Other specified cardiac dysrhythmias Heart failure with preserved ejection fraction, unspecified HF chronicity SVT (supraventricular tachycardia) Other specified cardiac dysrhythmias documented in this encounter Care Teams Rf Microwave Engineer Relationship Specialty Start Date End Date Polo Pearce PA [address] [place] [address] PCP - General Internal Medicine 06/09/21 documented as of this encounter
--- OUTSIDE RECORDS SUMMARY | 2024-01-24 12:38 | XMS_ITS | Encounter Summary ---
Author Organization [place] [address] Care Team Providers Care Gasoline Plant Operator Name Role Phone Polo Pearce Primary Care Provider [phone] Reason for Visit * Consultation (Routine) - Closed Specialty Diagnoses / Procedures Referred By Contact Referred To Contact Electrophysiology / Cardiology Diagnoses Supraventricular tachycardia evaluation for AVNRT ablation due to symptomatic SVT with myocardial injury Sandy Serna MD [facility] GENERAL [place] [address] [facility] Cardiology [address] [place] [address] Referral ID Status Reason Start Date Expiration Date V isits Requested Visits Authorized [id number] Closed Consult, Test & Treat 06/14/2021 06/14/2022 1 1 Encounter Details Date Type Department Care Team (Late st Contact Info) Description 08/19/2021 3:00 PM EDT Office Visit Cardiology at [address] [address] Umberto Joy PA [facility] [place] [address] AVNRT (AV makayla re-entry tachycardia) Social History [...] EKGs(ST T-wave abnormalities) but clean cors at [facility] in 2019 and essentially normal echocardiogram(LVEF [...] anticipated in the future. She lives in [place], [place] and has seen Dr. Kinsey in [place]. Patient Active Problem List Diagnosis ??? 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 Obesity ??? Dyslipidemia ??? MARYLOU on CPAP ??? Restless leg syndrome ??? Insomnia ??? (HFpEF) heart failure with preserved ejection fraction Overview Note: 05/2021: subacute, 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 ??? fluticasone propionate (FLONASE) 50 mcg/actuation [place], Suspension 1 spray by Each Nare route [...] history and diagnostic findings with emphasis on color television console monitor data. We also discussed risk/benefit of [...] PM EST Office Visit Cardiology at [address] [place] [phone] Jaspreet Kinsey MD [facility] [place] [address] documented as of this encounter Procedures Procedure [...] (Bezet) 443 ms MUSE SYSTEM Calculated P Miles 49 degrees MUSE SYSTEM Calculated R Miles 63 degrees MUSE SYSTEM Calculated T Miles -60 degrees MUSE SYSTEM INTERPRETATION Sinus bradycardia [...] dysrhythmias documented in this encounter Care Teams Gasoline Plant Operator Relationship Specialty Start Date End Date Polo Pearce PA [address] [place] [address] PCP - General Internal Medicine 06/09/21 documented as of this encounter
--- OUTSIDE RECORDS SUMMARY | 2024-01-24 12:38 | XMS_ITS | Encounter Summary ---
[place] [address] Care Team Providers Care Stewardesses Teacher Name Role Phone Polo Pearce Primary Care Provider [phone] Reason for Visit * Reason Onset Date Comments Chest Pain 07/27/2022 Shortness of Breath 07/27/2022 Fatigue 07/27/2022 Encounter Details Date Type Department Care Team (Late st Contact Info) Description 07/27/2022 Telephone Cardiology at [address] [address] Jaspreet Kinsye MD [facility] [address] Chest Pain; Shortness of Breath; Fatigue Social [...] EDT Florencia has been admitted inpatient at [facility]. * Telephone Encounter - Maria Luisa Aide R - 07/27/2022 3:35 PM EDT Patient called and said she is now in [facility]. She said they did a CT scan and found blood clots on her lungs. She also has a fluid buildup. Please call her @ [phone] * Telephone Encounter - Nilda Mayes, RN - 07/27/2022 10:04 AM EDT Indira [...] for assessment. Plan: Florencia will go to [facility] for evaluation. documented in this encounter Plan of Treatment Upcoming Encounters Date Type Department Care Team (Late st Contact Info) Description 02/10/2024 1:00 PM EST Office Visit Cardiology at [address] [place] [phone] Jaspreet Kinsey MD [facility] [place] [address] documented as of this encounter Visit Diagnoses Not on filedocumented in this encounter Care Teams Stewardesses Teacher Relationship Specialty Start Date End Date Polo Pearce PA [address] [place] [address] PCP - General Internal Medicine 06/09/21 documented as of this encounter
--- OUTSIDE RECORDS SUMMARY | 2024-01-24 12:39 | XMS_ITS | Encounter Summary ---
[place] [address] Care Team Providers Care Methods Time Analyst Name Role Phone Polo Pearce Primary Care Provider [phone] Encounter Details Date Type Department Care Team (Late st Contact Info) Description 06/10/2021 Telephone Cardiology at [address] [address] Lashonda Menjivar RN Social History Tobacco Use Types Packs/Day [...] 90 days of Jardiance, to [facility]. Prescription pended. Lashonda Menjivar (Jodie), RN, BSN Cardiology Ambulatory Clinic documented in this encounter Plan of Treatment Upcoming Encounters Date Type Department Care Team (Late st Contact Info) Description 02/10/2024 1:00 PM EST Office Visit Cardiology at [address] [place] [address] Jaspreet Kinsey MD [facility] [place] [address] documented as of this encounter Visit Diagnoses Not on filedocumented in this encounter Care Teams Methods Time Analyst Relationship Specialty Start Date End Date Polo Pearce PA [address] [place] [address] PCP - General Internal Medicine 06/09/21 documented as of this encounter
--- OUTSIDE RECORDS SUMMARY | 2024-01-24 12:39 | XMS_ITS | Encounter Summary ---
[place] [address] Care Team Providers Care Marketing Planner Name Role Phone Tim Rogers DNP Primary Care Provider [phone] Encounter Details Date Type Department Care Team (Late st Contact Info) Description 05/28/2021 Tele[place] [address] Beryl Grider Social History Tobacco Use Types [...] PM EST Office Visit Cardiology at [address] [place] [address] Jaspreet Kinsey MD [facility] [place] [address] documented as of this encounter Visit Diagnoses Not on filedocumented in this encounter Care Teams Marketing Planner Relationship Specialty Start Date End Date Tim Rogers DNP PCP - General Family Medicine 08/28/19 06/08/21 documented as of this encounter
--- OUTSIDE RECORDS SUMMARY | 2024-01-24 12:39 | XMS_ITS | Encounter Summary ---
Author Organization [facility] [place] [address] Care Team Providers Care Asset Recovery Specialist Name Role Phone Polo Pearce Primary Care Provider [phone] Reason for Visit * Reason Onset Date Comments Medication Refill 06/10/2021 Jardiance Encounter Details Date Type Department Care Team (Late st Contact Info) Description 06/10/2021 Refill Cardiology at [address] [address] Deja Zaidi PA [address] [address] Medication Refill (Jardiance) Social History Tobacco Use [...] PM EST Office Visit Cardiology at [address] [place] [address] Jaspreet Kinsey MD [facility] [place] [address] documented as of this encounter Visit Diagnoses Diagnosis Chronic heart failure with preserved ejection fraction documented in this encounter Care Teams Asset Recovery Specialist Relationship Specialty Start Date End Date Polo Pearce PA [address] [place] [address] PCP - General Internal Medicine 06/09/21 documented as of this encounter
--- OUTSIDE RECORDS SUMMARY | 2024-01-24 12:39 | XMS_ITS | Encounter Summary ---
Author Organization [facility] [place] [address] Care Team Providers Care Apron Cleaner Name Role Phone Tim Rogers DNP Primary Care Provider [phone] Encounter Details Date Type Department Care Team (Late st Contact Info) Description 03/23/2021 Ancillary Procedure Radiology Library at [facility] [place] [place] [address] Tim Rogers DNP [address] [place], [place] [id number] Social History Tobacco Use Types Packs/Day Years [...] PM EST Office Visit Cardiology at [address] [place] [address] Jaspreet Kinsey MD [facility] [place] [address] documented as of this encounter Procedures Procedure [...] Rogers DNP IM FILM LIBRARY OR DERABLES Performing Organization Address City/State/[facility] Co de Phone Number [place], [place] documented in this encounter Visit Diagnoses Not on filedocumented in this encounter Care Teams Apron Cleaner Relationship Specialty Start Date End Date Tim Rogers DNP PCP - General Family Medicine 08/28/19 06/08/21 documented as of this encounter
--- OUTSIDE RECORDS SUMMARY | 2024-01-24 12:39 | XMS_ITS | Encounter Summary ---
Author Organization [place] [address] Care Team Providers Care Center Customer Service Associate Name Role Phone Tim Rogers DNP Primary Care Provider Reason for Visit * Diagnostic Test (Routine) - Closed Specialty Diagnoses / Procedures Referred By Jayant harris Referred To Contact Cardiology Diagnoses Palpitations Procedures Ziopatch 48 Hrs-15 Days Beto Miller MD [facility] [place] [address] [facility] [place] [address] Referral ID Status Reason Start Date Expiration Date V isits Requested Visits Authorized [id number] Closed Specialty Service Requested 10/28/2020 03/07/2021 1 1 Encounter Details Date Type Department Care Team (Latest Contact Info) Description 10/28/2020 8:00 AM EDT - 10/28/2020 11:59 PM EDT Hospital Encounter Non-[place] [address] Beto Miller MD [facility] [address] Palpitations Discharge Disposition: Home Social [...] as needed. fluticasone propionate (FLONASE) 50 mcg/actuation [place], Suspension 1 spray by Each Nare route [...] PM EST Office Visit Cardiology at [address] [place] [address] Jaspreet Kinsey MD [facility] [place] [address] documented as of this encounter Procedures Procedure [...] Palpitations documented in this encounter Care Teams Center Customer Service Associate Relationship Specialty Start Date End Date Tim Rogers DNP PCP - General Family Medicine 08/28/19 06/08/21 documented as of this encounter
--- OUTSIDE RECORDS SUMMARY | 2024-01-24 12:39 | XMS_ITS | Encounter Summary ---
[place] [address] Care Team Providers Care Consulting Psychologist Name Role Phone Tim Rogers DNP Primary Care Provider [phone] Encounter Details Date Type Department Care Team (Late st Contact Info) Description 05/30/2021 [place] [phone] Beryl Grider Social History Tobacco Use Types [...] Beryl Grider - 05/30/2021 11:10 AM EDTSummary: [facility] Per Dr. Miller via ID, needs images sent to our PACS system for mutual pt. Called PCP's (Polo Pearce) office at [facility] & Nayeli Martin in Radiology to Assist in sending images of chest x- ray from May 03 & CT scan of abdomen ( maybe chest) from May 27 to our PACS system with Pulm # [phone] opt 1 documented in this encounter Plan of Treatment Upcoming Encounters Date Type Department Care Team (Late st Contact Info) Description 02/10/2024 1:00 PM EST Office Visit Cardiology at [address] [place] [address] Jaspreet Kinsey MD [facility] [place] [address] documented as of this encounter Visit Diagnoses Not on filedocumented in this encounter Care Teams Consulting Psychologist Relationship Specialty Start Date End Date Tim Rogers DNP PCP - General Family Medicine 08/28/19 06/08/21 documented as of this encounter
--- OUTSIDE RECORDS SUMMARY | 2024-01-24 12:39 | XMS_ITS | Encounter Summary ---
Author Organization [facility] [place] [address] Care Team Providers Care Catalyst Concentration Operator Name Role Phone Polo Pearce Primary Care Provider [phone] Encounter Details Date Type Department Care Team (Late st Contact Info) Description 06/13/2021 [place] [address] Ralf Mejia MD [facility] [address] Social History Tobacco Use Types Packs/Day Years [...] Referring provider: Jasiel Caicedo MD Patient location: [facility] Past medical history: HLD HTN Asthma Depression ?Micrvascular disease SVT MARYLOU Diastolic heart failure History 51-year-old female with history as noted above who is just admitted to [facility] for evaluation of angina with discharge 06/08/2021. At that time she initially presented to [facility] where she was noted to have a troponin I of 406 which was flat at 411 on repeat and an elevated BNP. EKG showed nonspecific ST changes in the inferolateral leads. She was transferred to [facility] for further evaluation where she underwent a [...] I and her recent work-up here at [facility] which did not include an ischemic evaluation but did include a transesophageal echocardiogramserial EKGs and serial negative troponins that further work-up at [facility] may be appropriate. Suspect that [...] possible microvascular angina. Plan: -Continue management at [facility]. -Recommend stress test at [facility]. -Start metoprolol succinate 25 mg daily with follow-up with cardiology and up titration. -Continue medications as prescribed from her recent discharge. -Planning to get serial troponins and EKGs. If these are markedly changing can reassess and consider transfer to [facility] for further evaluation. Ralf Mejia MD 06/13/2021 12:05 AM documented in this encounter Plan of Treatment Upcoming Encounters Date Type Department Care Team (Late st Contact Info) Description 02/10/2024 1:00 PM EST Office Visit Cardiology at [address] [place] [address] [facility] [place] [address] documented as of this encounter Visit Diagnoses Not on filedocumented in this encounter Care Teams Catalyst Concentration Operator Relationship Specialty Start Date End Date Polo Pearce PA [address] [place] [address] PCP - General Internal Medicine 06/09/21 documented as of this encounter
--- OUTSIDE RECORDS SUMMARY | 2024-01-24 12:39 | XMS_ITS | Encounter Summary ---
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 Referring Provider: Stuart Iyer MD [address] [place] [address] [place] [address] Indira Roque 51 y.o. w / a [...] pt has been accepted for transfer to [facility] tomorrow. I asked the provider to contact us again if there is change in clinical status. documented in this encounter Plan of Treatment Upcoming Encounters Date Type Department Care Team (Late st Contact Info) Description 02/10/2024 1:00 PM EST Office Visit Cardiology at [address] [place] [id number] Jaspreet Kinsey MD [facility] [place] [address] documented as of this encounter Visit Diagnoses Not on filedocumented in this encounter Care Teams Floor Finisher Helper Relationship Specialty Start Date End Date Tim Rogers DNP PCP - General Family Medicine 08/28/19 06/08/21 documented as of this encounter
--- OUTSIDE RECORDS SUMMARY | 2024-01-24 12:39 | XMS_ITS | Encounter Summary ---
Author Organization [facility] [place] [address] Care Team Providers Care Child Support Specialist Name Role Phone Tim Rogers DNP Primary Care Provider Encounter Details Date Type Department Care Team (Late st Contact Info) Description 05/02/2021 Ancillary Procedure Radiology Library at [facility] [place] [address] Tim Rogers DNP [address] [place], [place] [id number] Social History Tobacco Use Types Packs/Day Years [...] PM EST Office Visit Cardiology at [address] [place] [address] [facility] [place] [address] documented as of this encounter Procedures Procedure Name Priority Date/Time Associated Diagnosis Comments FILM LIBRARY STORAGE ONLY DX CHEST Routine 05/02/2021 12:00 AM EST documented in this encounter Results * Film Library- Storage Only DX Chest (05/02/2021 12:00 AM EST) Narrative JAMAL - 05/30/2021 2:33 PM EDT This exam is auto-finalizing. It's purpose is for storage only. Tim Rogers DNP [facility] FILM LIBRARY OR DERABLES Performing Organization Address City/State/[facility] Co de Phone Number [place], [place] documented in this encounter Visit Diagnoses Not on filedocumented in this encounter Care Teams Child Support Specialist Relationship Specialty Start Date End Date Tim Rogers DNP PCP - General Family Medicine 08/28/19 06/08/21 documented as of this encounter
--- OUTSIDE RECORDS SUMMARY | 2024-01-24 12:39 | XMS_ITS | Encounter Summary ---
[place] [address] Care Team Providers Care Disk Recoater Name Role Phone Polo Pearce Primary Care Provider [phone] Encounter Details Date Type Department Care Team (Late st Contact Info) Description 06/11/2021 Telephone Cardiology at [address] [address] Deja Zaidi PA [address] [address] Social History Tobacco Use Types Packs/Day Years [...] JOCY Hernandez 06/11/2021 JOCY Hernandez 06/11/2021 Pager [phone] documented in this encounter Plan of Treatment Upcoming Encounters Date Type Department Care Team (Late st Contact Info) Description 02/10/2024 1:00 PM EST Office Visit Cardiology at [address] [place] [address] Jaspreet Kinsey MD [facility] [place] [address] documented as of this encounter Visit Diagnoses Not on filedocumented in this encounter Care Teams Disk Recoater Relationship Specialty Start Date End Date Polo Pearce PA [address] [place] [address] PCP - General Internal Medicine 06/09/21 documented as of this encounter
--- OUTSIDE RECORDS SUMMARY | 2024-01-24 12:39 | XMS_ITS | Encounter Summary ---
Author Organization [facility] [place] [address] Care Team Providers Care Legal Aide Name Role Phone Tim Rogers DNP Primary Care Provider Encounter Details Date Type Department Care Team (Late st Contact Info) Description 05/27/2021 Ancillary Procedure Radiology Library at [facility] [place] [address] Tim Rogers DNP [address] [place], [place] [id number] Social History Tobacco Use Types Packs/Day Years [...] 1:00 PM EST Office Visit Cardiology at [address] [place] [address] Jaspreet Kinsey MD [facility] [place] [address] documented as of this encounter Procedures Procedure Name Priority Date/Time Associated Diagnosis Comments FILM LIBRARY STORAGE ONLY CT ABDOMEN AND PELVIS Routine 05/27/2021 12:00 AM EDT documented in this encounter Results * Film Library- Storage Only CT Abdomen & Pelvis (05/27/2021 12:00 AM EDT) Narrative [facility] - 05/30/2021 2:30 PM EDT This exam is auto-finalizing. It's purpose is for storage only. Tim Rogers DNP IM FILM LIBRARY OR DERABLES Performing Organization Address City/State/[facility] Co de Phone Number [place], [place] documented in this encounter Visit Diagnoses Not on filedocumented in this encounter Care Teams Legal Aide Relationship Specialty Start Date End Date Tim Rogers DNP PCP - General Family Medicine 08/28/19 06/08/21 documented as of this encounter
--- OUTSIDE RECORDS SUMMARY | 2024-01-24 12:39 | XMS_ITS | Encounter Summary ---
[place] [address] Care Team Providers Care Manager Community Name Role Phone Polo Pearce Primary Care Provider [phone] Reason for Visit * Auth/Cert Specialty Diagnoses / Procedures Referred By Jayant t Referred To Contact Diagnoses NSTEMI (non-ST elevated myocardial infarction) NSTEMI Procedures EMERGENCY OBSVO Referral ID Status Reason Start Date Expiration Date Visits Re quested Visits Authorized [id number] 1 1 Encounter Details Date Type Department Care Team (Late st Contact Info) Description 06/09/2021 8:15 AM EDT - 06/09/2021 9:15 AM [place] [address] Aaron Ash MD [facility] [place] [address] CARDIAC CATHETERIZATION Social History Tobacco Use Types [...] Loida Roque Patient Age: 51 y.o. Language: Thai Race: White Ethnicity: Not [...] in a week and prn ?? Consider [facility] as an out patient Inpatient Provider Contact Information: Dr. Mario Zaidi PA-C [phone] Discharge Diagnoses (Hospital Problems) and Secondary Diagnoses [...] change from prior in 08/2019. ?? Procedure Complete-12340. Image enhancement Definity was used for left [...] questions please contact the health career and guidance counselor that requested your imaging first. CXR 06/08/2021 [...] hysterectomy, Insomnia, and migraine who presents to [facility] with RUQ pain that radiated [...] 15. ?? Hospital Course: On admission to [facility], the patient had no complaints of chest pain or shortness of breath at rest.Telemetry was attached which showed normal sinus rhythm. Heparin drip was infusing. [facility] records/transfer records were reviewed. Baseline labs were checked and/or drawn. Chest Pain, SC ruled out, Echo showed preserved LVEF Given the patient's risk factors, chronic non-specific ST-T changes on ECG, and here at [facility] normaltroponin as well as reproducible chest tenderness [...] significant weight, however during her stay at [facility] now she lost only 0.9 kg, to [...] needed Follow up Appointments: PCP Tim Rogers, MERCHANDISING PROFESSOR [phone] to see you in a week (patient to set this up) Mel placed on 06/09/2021 Cardiology to see in a month and prn. Dr. Kinsey to see the patient in [place] on July 23 at 920 am. Please call [phone] with questions. Home oxygen therapy: N/A Arrangements for VNA/home care: none Future Appointments and Orders Future Appointments and Orders Future Appointments Provider Department Dept Phone 07/23/2021 8:20 AM Jaspreet Kinsey MD Cardiology at [place] Arrive at: [facility] [address] [phone] Future Orders Complete By Expires Ziopatch 48 Hrs-15 Days [[id number] CPT(R)] 06/09/2021 12/09/2021 Process Instructions: Scheduling Instructions: Questions: Does the patient have a pacemaker? If yes provide HI/LO settings: Apply for 7 or 14 days?: 14 Where will study be performed?: [facility] Clinics Basic Metabolic Panel (non-fasting) [LAB15 Custom] 06/16/2021 (Approximate) 06/09/2022 Process Instructions: INCLUDES: Calcium, BUN, Creat, GFR, Glucose, Lytes Scheduling Instructions: Comments: Questions: Discharge References/Attachments None documented in this encounter Discharge Instructions * Discharge Instructions* Deja Zaidi PA - 06/08/2021 1:56 PM EDT Return to work: One week Driving: as needed Follow up Appointments: PCP Tim Rogers, MERCHANDISING PROFESSOR [phone] to see you in a week (patient to set this up) Ziopatch placed on 06/09/2021 Cardiology to see in a month and prn. Dr. Kinsey to see the patient in [place] on July 23 at 920 am. Please call [phone] with questions. Home oxygen therapy: N/A Arrangements for VNA/home care: none documented in this encounter Medications at Time of Discharge Medication Sig Dispensed Refills Start Date End Date rOPINIRole (Requip) 1 mg Tablet Take 2 mg by mouth 2 times daily. 07/16/2020 loratadine (Claritin) 10 mg Tablet Take 10 mg by mouth daily as needed. fluticasone propionate (FLONASE) 50 mcg/actuation Murray, Suspension [...] as of this encounter Progress Notes * Ariadna Rocio T - 06/09/2021 1:31 PM EDT Nutrition Services Note - Low Nutrition Acuity Loida Roque is a 51 y.o. female Reason for intervention: education Nutrition Plan: Pt seen for Na2gm diet. Home Health Lvn informed pt of current diet orders and their restrictions. Pt expressed understanding and informed this promotion writer that she tries to limit salt use at home. Home Health Lvn and pt discussed common sources of sodium [...] Choices/Cardiac diet ([facility]-Diet) 2 GM NA Frequency: Effective Now Number [...] nausea and no vomiting Last Bowel Movement: (HEAD PORTER) Patient education / questions: provided diet order education and patient with good understanding, written education and contact information provided and all nutrition related questions answered at this time Nutrition services to follow weekly through hospital course unless consulted in the interim. Rocio Rosenthal Pager: [phone] * Deja Zaidi PA - 06/09/2021 9:14 AM EDT Inpatient Cardiology Discharge Day Note Patient Name: Loida Roque Service: NURSE COLLEGE / PA Responsible Attending: Mario Hallman MD [...] Hold] topiramate 50 mg Oral BID ??? [May] montelukast 10 mg Oral Nightly ??? [May] [...] (PF), [MAY Hold] acetaminophen, [MAY Hold] traMADoL, [May] hydrOXYzine, [May] [...] (from the past 24 hour(s)) urine, qualitative ([facility]/P/NL) Result Value Ref Range Spec Coleman UA 1.010 1.006 - 1.030 HCG Qual [...] seen on recent CT scan presents to [facility] from [facility] with a NSTEMI. She has [...] with Dr. Hallman. ?? JOCY Hernandez Pager [phone] JOCY MCKOY 06/09/2021 Associated attestation - Mario Hallman MD - 06/09/2021 9:37 PM EDT Cardiology Attending Addendum I shared this visit with JOCY Zaidi and guided the medical decision- making. I explained to patient the findings of echo, R heart catheterization and our diagnostic impression and medications (furosemide and empagliflozin) and possible adverse events. More than 30 minutes were spent in [id number] contact with patient and with arranging discharge and coordinating follow-up. * Silvino Robles, DECKHAND OYSTER DREDGE - 06/09/2021 5:48 AM EDT Respiratory Therapy [...] Jaspreet Pardo - 06/08/2021 8:34 PM EDT Orthodontic Band Maker Encounter Note Patient Name: Loida Roque : [id number] MR#: [id number] Admit Date: 06/07/2021 3:49 PM Hospital Day 0 days Narrative: Initial rounding visit to introduce fowl blood tester services and to assess patient interest. Patient [...] Day Note Patient Name: Loida Roque Service: NURSE COLLEGE / PA Responsible Attending: Mario Hallman MD [...] ??? heparin (porcine) infusion 1,100 Units/hr (06/08/21 7243) PRN Meds:hydrOXYzine, heparin (porcine) infusion AND heparin [...] PCR Not Detected Not Detected SARS-CoV-2 Source NURSE COLLEGE Swab Troponin Result Value Ref Range Troponin-T [...] seen on recent CT scan presents to [facility] from [facility] with a NSTEMI. She has [...] with Dr. Hallman. ?? 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 ??? fluticasone propionate (FLONASE) 50 mcg/actuation Murray, [...] seen on recent CT scan presents to [facility] from [facility] with a NSTEMI. She has an elevated trop, BNP and lateral EKG changes. Patient is now awaiting an Echo and cardiac cath. Neurology consult called in to determine if she needs imaging prior to her Echo and cath given garbled speech a week ago. Stable at this time. TREATMENT PLAN: NSTEMI Admit to [facility] for telemetry monitoring Serial enzymes and [...] JOCY Hernandez 06/07/2021 Provider: JOCY MCKOY Pager [phone] 06/07/2021 Associated attestation - Mario Hallman MD [...] COVID test: Lab Results Component Value Date [id number] Not Detected 06/07/2021 Present on Admission: ??? NSTEMI (non-ST elevated myocardial infarction) ??? Asthma ??? MARYLOU on CPAP ??? Insomnia ??? Chronic heart failure with preserved ejection fraction Hospitalizations Within the Past 30 Days: no previous admission in last 30 days Patient receiving hospital care under Observation status. Admission order reviewed. Primary Insurance on file: P Secondary Insurance on file:@ Primary care provider on file: Tim Rogers, MERCHANDISING PROFESSOR [phone] Pharmacy: [id number] - [place], [place] - [address] [facility] [address] Advance Care Planning: Attempt Cardiopulmonary Resuscitation - Inpatient <no information> -Advanced Directive: No, declines (Boby (spouse) SDM) Current Functional Ability: Independent Functional Status Prior to Admission: Independent Home Environment: Others in the home: spouse. Current Living Arrangements: home/apartment/condo. Accessibility Concerns: . Current DME: none [address] [place] [address] Social & Family Supports: All names listed [...] private vehicle when medically ready. Registered Nurse Deputy Chief Executive / Loan Review Analyst will continue to follow patient???s progress [...] symptoms:: 05/27/21 Time of discovery of symptoms:: 0900 Date acute stroke team was at bedside:: [...] Daily. ??? 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 Social Determinants of Health Financial Resource [...] L Elbow flexion 5/5 R, 5/5 L Perlite Grinder LE: 5/5 R, 5/5 L Hip flexion [...] PCR Not Detected Not Detected SARS-CoV-2 Source NURSE COLLEGE Swab Troponin Result Value Ref Range Troponin-T [...] CTH Melany Kahn MD Vascular Neurology Standard [facility] Swallow Screen: This screen is to be [...] diet as medical provider deems appropriate. Consider SAFETY EQUIPMENT TESTING SPECIALIST consult for full evaluation and diet recommendations. [...] for further details. JOCY MCKOY 06/07/2021 Pager [phone] documented in this encounter Plan of Treatment Upcoming Encounters Date Type Department Care Team (Late st Contact Info) Description 02/10/2024 1:00 PM EST Office Visit Cardiology at [address] [place] [address] Jaspreet Kinsey MD [facility] [place] [address] documented as of this encounter Procedures Procedure [...] Modality Other Narrative 07/01/2021 9:29 AM EDT [facility] ? Zio Patch? Ambulatory Cardiac Event [...] atrial premature beat conducted with a prolonged [place] interval, strongly suggestive of atrioventricular makayla reentrant [...] as described ?? Kurt Larose MD, PhD, [facility] Cardiac Electrophysiology Mario Hallman MD CARDIAC SERVICES ORD ERABLES * CARDIAC CATHETERIZATION (06/09/2021 9:05 AM EDT) Anatomical Region Laterality Modality Other Narrative 06/09/2021 9:09 AM EDT ?[facility] ? Cardiac Catheterization/Intervention Report ? Patient Name: Neisha, Loida ? Procedure Date: 06/09/2021 ? A #: [id number] ? Primary Physician: Nilsa, Aaron Santana ? Case #: [id number] ? File Name: [id number] ? Catheterization Order Number: [id number] ? [facility] ? Final Report [place], [place] ? Patient Name: ? Loida Neisha ? ID#: ?[id number] ? : ?1970 ? Procedure Date: ? June 09, 2021 ?Case #: ? [id number] ? Room: ? 1 ? Case Physician: [...] was Urgent. The indication for ?the label cutter visit is other indication. Chest pain symptom [...] heart catheterization and ?oximetry. ? Aaron Ash MAixa. ? Electronically Signed by: Aaron Ash MJessiD. ? Report Finalized: 06/09/2021 ??09:01 ? Report Last Ammended: 06/23/2021 ??09:51 ? Procedure Note Aaron Ash MD - 06/23/2021 [facility] Cardiac Catheterization/Intervention Report Patient Name: Loida Roque Procedure Date: 06/09/2021 A #: [id number] Primary Physician: Aaron Ash Case #: [id number] File Name: [id number] Catheterization Order Number: [id number] [facility] FinalReport [place], [place] Patient Name: Loida Roque ID#:[id number] :1970 Procedure Date: June 09, 2021 Case [...] patientwas designated as ASA Class III. The [facility] clinical frailty scale is 2:Well. [...] procedure was Urgent. The indicationfor the label cutter visit is other indication. Chest pain symptomassessment [...] 3:37 AM EDT) NT-proBNP 911(H) <=124 pg/mL [facility] Blood Venous Draw / Unknown 06/09/2021 3:37 AM EDT 06/09/2021 3:59 AM EDT Narrative Resulting Agency Comment Spec In Lab Deja SANDRA CHEMISTRY ORDERABLES [facility] [place] [address] * Differential, Automated (06/09/2021 3:37 AM EDT) Pathologist [facility] Neutrophil % 64.9 % [facility] Neutrophil Absolute 5.12 1.70 - 6.10 x10(3)/[facility] Lymph % 21.9 % [facility] Lymphocytes Abs 1.7 0.9 - 3.2 x10(3)/[facility] Monocyte % 8.6 % [facility] Monocyte Abs 0.7 0.3 - 0.9 x10(3)/[facility] Eos % 3.4 % [facility] Eosinophils Abs 0.3 0.0 - 0.4 x10(3)/[facility] Basophil % 0.8 % [facility] Baso Absolute 0.1 0.0 - 0.1 x10(3)/[facility] [...] In Lab Deja SANDRA HEMATOLOGY ORDERABLE S [facility] [place] [address] * (ABNORMAL) Hemogram (06/09/2021 3:37 AM EDT) White Blood Cell 7.9 4.0 - 9.5 x10(3)/mc L [facility] Red Blood Cell 4.88 4.00 - 5.21 x10(6)/mc L [facility] Hemoglobin 15.2 11.7 - 15.5 g/dL [facility] Hematocrit 46.5(H) 35.7 - 45.8 % [facility] Mean Cell Volume 95.3(H) 82.6 - 94.4 fL [facility] Mean Cell Hemoglobin 31.1 27.1 - 32.0 pg [facility] Mean Cell Hemoglobin Concentration 32.7 31.7 - 35.0 g/dL [facility] Platelet 334 145 - 357 x10(3)/mc L [facility] RDW Standard Deviation 49.2(H) 37.0 - 46.0 [facility] RDW coefficient of variation 14.5(H) 11.5 - 14.1 % [facility] Mean Platelet Volume 10.2 7.6 - 12.9 [facility] NRBC% auto 0.0 % [facility] NRBC Absolute 0.000 0.000 - 0.000 x10(3)/mc L [facility] Blood 06/09/2021 3:37 AM EDT 06/09/2021 3:58 AM EDT Narrative Resulting Agency Comment Spec In Lab Deja SANDRA HEMATOLOGY ORDERABLE S [facility] [place] [address] * (ABNORMAL) BMP w/fasting Glucose (06/09/2021 3:37 AM EDT) [facility] Signature Glucose Fasting 103(H) 65 - 99 mg/dL [facility] [...] Urea Nitrogen 23(H) 8 - 18 mg/dL [facility] Creatinine 0.86 0.70 - 1.20 mg/dL [facility] [...] questions. Chloride 102 98 - 107 mmol/L [facility] Carbon Dioxide 22 22 - 31 mmol/L [facility] Anion Gap 13 5 - 15 mmol/L [facility] Calcium 9.3 8.5 - 10.5 mg/dL [facility] Est Glomerular Filtration Rate 78 >=60 mL/min/1. 73 m?? [facility] Comment: This patient? s [...] Hallman MD CHEMISTRY ORDERABLES Performing Organization Address [facility]/ZIP Co de Phone Number [facility] [place] [address] * Heparin (unfractionated) Level (06/08/2021 4:07 PM [...] HEMATOLOGY ORDERABLE S Performing Organization Address City/[facility]/ZIP Co de Phone Number [facility] [place] [address] * XR Chest PA & Lateral (Generic) [...] questions please contact the health career and guidance counselor that requested your imaging first. ? Electronically signed by: Magda Machado MD, [facility] ([phone]), at 06/08/2021 6:00 PM Narrative 06/08/2021 6:00 [...] have questions please contactthe health career and guidance counselor that requested your imaging first. Mario Hallman [...] questions please contact the health career and guidance counselor that requested your imaging first. ? Electronically signed by: Kiran Cantor MD, [facility] ([phone]), at 06/08/2021 2:35 PM Narrative 06/08/2021 2:35 [...] have questions please contactthe health career and guidance counselor that requested your imaging first. Electronically signed by: Kiran Cantor MD, [facility]([phone]), at 06/08/2021 2:35 PM aMrio Hallman MD IMG MRI ORDERABLES * (ABNORMAL) CRP, acute inflammation (06/08/2021 11:58 AM EDT) C-Reactive Protein 28.1(H) <=4.9 mg/L [facility] Blood 06/08/2021 11:5 8 AM EDT 06/08/2021 12:04 PM EDT Narrative Resulting Agency Comment Spec In Lab Mario Hallman MD CHEMISTRY ORDERABLES [facility] [place] [address] * CK (06/08/2021 11:58 AM EDT) Creatine Kinase 30 0 - 160 unit/L [facility] Blood 06/08/2021 11:5 8 AM EDT 06/08/2021 12:04 PM EDT Narrative Resulting Agency Comment Spec In Lab Mario Hallman MD CHEMISTRY ORDERABLES Performing Organization Address [facility]/ZIP Co de Phone Number [facility] [place] [address] * (ABNORMAL) Sedimentation rate (06/08/2021 11:58 AM EDT) Sedimentation Rate Automated 53(H) 2 - 39 mm/hr [facility] [...] HEMATOLOGY ORDERABLE S Performing Organization Address [facility] Co de Phone Number [facility] [place] [address] * Heparin (unfractionated) Level (06/08/2021 11:58 AM EDT) UF Heparin 0.77 IU/mL [facility] Comment: [...] HEMATOLOGY ORDERABLE S Performing Organization Address City/[facility]/ZIP Co de Phone Number [facility] [place] [address] * urine, qualitative ([facility]/CGP/NLH) (06/08/2021 11:51 AM EDT) Specific Coleman Urine Automated 1.010 1.006 - 1.030 [facility] Human Chorionic Gonadotropin Qualitative, Urine Negative [facility] Comment: Dilute urine samples can result in a false negative test. Repeat testing on a first morning sample or a plasma quantitative hCG measurement is recommended. Urine 06/08/2021 11:5 1 AM EDT 06/08/2021 12:32 PM EDT Narrative Resulting Agency Comment Spec In Lab Mario Hallman MD URINE ORDERABLES [facility] [place] [address] * ECHO COMPLETE W CONTRAST (06/08/2021 11:09 AM EDT) Anatomical Region Laterality Modality Other 06/08/2021 9:35 AM EDT Narrative 06/08/2021 12:42 PM EDT ?[facility] ?[address] ? [place] [address] ?Voice: ?Fax: ? Echocardiogram Report Name: NEISHA LOIDA ? Study Date: 06/08/2021 09:35 AMBP: 109/69 mmHg ? Patient Location: ICCU^432^A : 1970 ? Height: 163 cm ? Account: [id number] Age: 51 yrs ? Weight: 95 kg Gender: Female ?BSA: 2.0 m2 Ordering Physician: DONALD Referring Physician: AJ HARTMAN Performed By: Aaron Herr RDCS Reason For Study: NSTEMI (non-ST elevated myocardial infarction) Exam Location: [facility]. Interpretation Summary 1. Left ventricle is [...] significant change from prior in 08/2019. Procedure Complete-22966. Image enhancement Definity was used for left [...] Procedure Note Kai Haider MD - 06/08/2021 [facility] [address] [place] [address] Voice: Fax: Echocardiogram Report Name: LOIDA ROQUE Study Date: 209:35 AMBP: 109/69 mmHg Patient Location:[place] [address]^ : 1970 Height: 163 cm Account: [id number] Age: 51 yrs Weight: 95 kg Gender: Female BSA: 2.0 m2 Ordering Physician: DONALD Referring Physician: AJ HARTMAN Performed By: Aaron Herr RDCS Reason For Study: NSTEMI (non-ST elevated myocardial infarction) Exam Location: [facility]. Interpretation Summary 1. Left ventricle is [...] significant change from prior in 08/2019. Procedure Complete-90397. Image enhancement Definity was used for left [...] AM EDT) UF Heparin 1.20(Crit ical) IU/mL [facility] Comment: [...] Lab Edie Costello MD HEMATOLOGY ORDERABLE S [facility] [place] [address] * (ABNORMAL) Differential, Automated (06/08/2021 4:41 AM EDT) Neutrophil % 71.8 % [facility] Neutrophil Absolute 8.09(H) 1.70 - 6.10 x10(3)/mc L [facility] Lymph % 18.0 % [facility] Lymphocytes Abs 2.0 0.9 - 3.2 x10(3)/mc L [facility] Monocyte % 5.7 % [facility] Monocyte Abs 0.6 0.3 - 0.9 x10(3)/mc L [facility] Eos % 3.5 % [facility] Eosinophils Abs 0.4 0.0 - 0.4 x10(3)/mc L [facility] Basophil % 0.6 % [facility] Baso Absolute 0.1 0.0 - 0.1 x10(3)/mc L [facility] Immature Gran % 0.40 % [facility] Comment: Immature granulocytes(IG's)percentage and absolute count will include metamyelocytes, myelocytes, and promyelocytes. Blood smears from CBCs yielding IG's will be scanned manually for concordance. If this scan disagrees with the automated IG or if promyelocytes are noted, a manual differential will be performed. Immature Gran Absolute 0.05(H) 0.00 - 0.04 x10(3)/mc L [facility] Blood 06/08/2021 4:41 AM EDT 06/08/2021 5:11 AM EDT Narrative Resulting Agency Comment Spec In Lab Deja SANDRA HEMATOLOGY ORDERABLE S [facility] [place] [address] * (ABNORMAL) Hemogram (06/08/2021 4:41 AM EDT) White Blood Cell 11.3(H) 4.0 - 9.5 x10(3)/ L [facility] Red Blood Cell 4.64 4.00 - 5.21 x10(6)/ L [facility] Hemoglobin 13.9 11.7 - 15.5 g/dL [facility] Hematocrit 43.0 35.7 - 45.8 % [facility] Mean Cell Volume 92.7 82.6 - 94.4 fL [facility] Mean Cell Hemoglobin 30.0 27.1 - 32.0 pg [facility] Mean Cell Hemoglobin Concentration 32.3 31.7 - 35.0 g/dL [facility] Platelet 312 145 - 357 x10(3)/ L [facility] RDW Standard Deviation 47.4(H) 37.0 - 46.0 fL [facility] RDW coefficient of variation 14.3(H) 11.5 - 14.1 % [facility] Mean Platelet Volume 10.8 7.6 - 12.9 fL [facility] NRBC% auto 0.0 % [facility] NRBC Absolute 0.000 0.000 - 0.000 x10(3)/ L [facility] Blood 06/08/2021 4:41 AM EDT 06/08/2021 5:11 AM EDT Narrative Resulting Agency Comment Spec In Lab Deja SANDRA HEMATOLOGY ORDERABLE S Performing Organization Address [facility] Co de Phone Number [facility] [place] [address] * (ABNORMAL) Heparin (unfractionated) Level (06/08/2021 4:41 AM EDT) UF Heparin 1.06(Crit ical) IU/mL [facility] Comment: [...] HEMATOLOGY ORDERABLE S Performing Organization Address [facility] Co de Phone Number [facility] [place] [address] * (ABNORMAL) BMP w/fasting Glucose (06/08/2021 4:41 AM EDT) Glucose Fasting 95 65 - 99 mg/dL [facility] [...] 18 mg/dL [facility] Creatinine 0.87 0.70 - 1.20 mg/dL [facility] [...] mmol/L [facility] Carbon Dioxide 22 22 - 31 mmol/L [facility] Anion Gap 13 5 - 15 mmol/L [facility] Calcium 8.7 8.5 - 10.5 mg/dL [facility] Est Glomerular Filtration Rate 77 >=60 mL/min/1. 73 m?? [facility] Comment: This patient? s [...] Hallman MD CHEMISTRY ORDERABLES Performing Organization Address City/[facility]/ZIP Co de Phone Number [facility] [place] [address] * Troponin (06/08/2021 4:41 AM EDT) Troponin-T [...] meets the diagnosis for a myocardial infarction (SC). Detection of a rise and/or fall of cTnT, with at least one value greater than the 99th percentile (> or = 0.01) and with at least one of the following ?? Symptoms of ischemia ?? New or presumed new significant LC-rumskdx-R wave (ST-T) changes or new left bundle [...] additional sample may be indicated. Reference: Third Stem Definition of Myocardial Infarction. Journal of the [employer] 2012;60:1581-98 Blood 06/08/2021 4:41 AM EDT 06/08/2021 5:12 AM EDT Narrative Resulting Agency Comment Spec In Lab Mario Hallman MD CHEMISTRY ORDERABLES Performing Organization Address City/[facility]/ZIP Co de Phone Number [facility] [place] [address] * Heparin (unfractionated) Level (06/07/2021 9:55 PM EDT) UF Heparin 0.08 IU/mL [facility] Comment: [...] HEMATOLOGY ORDERABLE S Performing Organization Address [facility] Co de Phone Number [facility] [place] [address] * (ABNORMAL) pro-Brain Natriuretic Peptide (06/07/2021 5:26 PM EDT) NT-proBNP 2,701(H) <=124 pg/mL [facility] Blood Venous Draw / Unknown 06/07/2021 5:26 PM EDT 06/07/2021 5:44 PM EDT Narrative Resulting Agency Comment Spec In Lab Deja SANDRA CHEMISTRY ORDERABLES Performing Organization Address [facility]/ZIP Co de Phone Number [facility] [place] [address] * (ABNORMAL) Differential, Automated (06/07/2021 5:26 PM EDT) Pathologist [facility] Neutrophil % 74.6 % [facility] Neutrophil Absolute 8.97(H) 1.70 - 6.10 x10(3)/mc L [facility] Lymph % 15.9 % [facility] Lymphocytes Abs 1.9 0.9 - 3.2 x10(3)/mc L [facility] Monocyte % 6.0 % [facility] Monocyte Abs 0.7 0.3 - 0.9 x10(3)/[facility] Eos % 2.6 % [facility] Eosinophils Abs 0.3 0.0 - 0.4 x10(3)/[facility] Basophil % 0.5 % [facility] Baso Absolute 0.1 0.0 - 0.1 x10(3)/[facility] Immature Gran % 0.40 % [facility] Comment: Immature granulocytes(IG's)percentage and absolute count will include metamyelocytes, myelocytes, and promyelocytes. Blood smears from CBCs yielding IG's will be scanned manually for concordance. If this scan disagrees with the automated IG or if promyelocytes are noted, a manual differential will be performed. Immature Gran Absolute 0.05(H) 0.00 - 0.04 x10(3)/[facility] Blood 06/07/2021 5:26 PM EDT 06/07/2021 5:36 PM EDT Narrative Resulting Agency Comment Spec In Lab Deja SANDRA HEMATOLOGY ORDERABLE S [facility] [place] [address] * (ABNORMAL) Hemogram (06/07/2021 5:26 PM EDT) White Blood Cell 12.0(H) 4.0 - 9.5 x10(3)/[facility] Red Blood Cell 4.72 4.00 - 5.21 x10(6)/[facility] Hemoglobin 14.5 11.7 - 15.5 g/dL [facility] Hematocrit 44.0 35.7 - 45.8 % [facility] Mean Cell Volume 93.2 82.6 - 94.4 fL [facility] Mean Cell Hemoglobin 30.7 27.1 - 32.0 pg [facility] Mean Cell Hemoglobin Concentration 33.0 31.7 - 35.0 g/dL [facility] Platelet 346 145 - 357 x10(3)/mc L [facility] RDW Standard Deviation 47.2(H) 37.0 - 46.0 fL [facility] RDW coefficient of variation 14.4(H) 11.5 - 14.1 % [facility] Mean Platelet Volume 10.6 7.6 - 12.9 fL [facility] NRBC% auto 0.0 % [facility] NRBC Absolute 0.000 0.000 - 0.000 x10(3)/mc L [facility] Blood 06/07/2021 5:26 PM EDT 06/07/2021 5:36 PM EDT Narrative Resulting Agency Comment Spec In Lab Deja SANDRA HEMATOLOGY ORDERABLE S Performing Organization Address City/State/[facility] Co de Phone Number [facility] [place] [place] [address] * BMP w/fasting Glucose (06/07/2021 5:26 PM EDT) Glucose Fasting 90 65 - 99 mg/dL [facility] [...] 18 mg/dL [facility] Creatinine 1.07 0.70 - 1.20 mg/dL [facility] Sodium 137 135 - 145 mmol/L [facility] Potassium 4.3 3.5 - 5.0 mmol/L [facility] Comment: Please note: ??Patients with WBC >100,000 may have falsely elevated Potassium levels. ??For accurate Potassium quantification in these patients send serum separator tube (gold top) for subsequent determinations. ??Contact the Clinical Chemistry Laboratory if there are any questions. Chloride 101 98 - 107 mmol/L [facility] Carbon Dioxide 24 22 - 31 mmol/L [facility] Anion Gap 12 5 - 15 mmol/L [facility] Calcium 9.1 8.5 - 10.5 mg/dL [facility] Est Glomerular Filtration Rate 60 >=60 mL/min/1. 73 m?? [facility] Comment: This patient? s [...] In Lab Mario Hallman MD CHEMISTRY ORDERABLES [facility] [place] [address] * T3 Total (06/07/2021 5:26 PM EDT) T3 Total 134 80 - 200 ng/dL [facility] Blood 06/07/2021 5:26 PM EDT 06/07/2021 5:36 PM EDT Narrative Resulting Agency Comment Spec In Lab Mario Hallman MD CHEMISTRY ORDERABLES Performing Organization Address City/[facility] Co de Phone Number [facility] [place] [address] * T4 Total (06/07/2021 5:26 PM EDT) T4 Total 6.8 5.3 - 11.6 mcg/dL [facility] Comment: Reference Interval (mcg/dL): Females: ??First Trimester: 6.3-13.5 ??Second Trimester: 7.1-14.3 ??Third Trimester: 6.9-14.1 Blood 06/07/2021 5:26 PM EDT 06/07/2021 5:36 PM EDT Narrative Resulting Agency Comment Spec In Lab Mario Hallman MD CHEMISTRY ORDERABLES Performing Organization Address [facility] Co de Phone Number [facility] [place] [address] * (ABNORMAL) TSH (06/07/2021 5:26 PM EDT) [facility] Thyroid Stimulating Hormone 5.83(H) 0.27 - 4.20 mcIU/mL [facility] Comment: Reference Interval (mcIU/mL): Females: ??First Trimester: 0.23-3.88 ??Second Trimester: 0.22-3.90 ??Third Trimester: 0.44-4.66 Blood 06/07/2021 5:26 PM EDT 06/07/2021 5:36 PM EDT Narrative Resulting Agency Comment Spec In Lab Mario Hallman MD CHEMISTRY ORDERABLES Performing Organization Address City/[facility] Co de Phone Number [facility] [place] [address] * Lipase (06/07/2021 5:26 PM EDT) Lipase 18 0 - 60 unit/L [facility] Blood 06/07/2021 5:26 PM EDT 06/07/2021 5:36 PM EDT Narrative Resulting Agency Comment Spec In Lab Mario Hallman MD CHEMISTRY ORDERABLES Performing Organization Address City/[facility]/ZIP Co de Phone Number [facility] [place] [address] * Amylase (06/07/2021 5:26 PM EDT) Amylase 39 28 - 100 unit/L [facility] Blood 06/07/2021 5:26 PM EDT 06/07/2021 5:36 PM EDT Narrative Resulting Agency Comment Spec In Lab Mario Hallman MD CHEMISTRY ORDERABLES Performing Organization Address City/[facility] Co de Phone Number [facility] [place] [phone] * Lipid Panel (Reflex Direct LDL) (06/07/2021 5:26 PM EDT) Cholesterol, Total 164 mg/dL [facility] Comment: Lower Risk: <200 mg/dL Average Risk: 200-239 mg/dL Higher Risk: >ke=000 mg/dL Triglyceride 144 mg/dL [facility] Comment: Average Risk/Lower Risk: <150 mg/dL Borderline High Risk: 150-199 mg/dL High Risk: 200-499 mg/dL Very High Risk: >fq=065 mg/dL HDL Cholesterol 44 mg/dL [facility] Comment: Males: ?? Higher Risk: <40 mg/dL Females: ?? Higher Risk: <50 mg/dL LDL Cholesterol 91 mg/dL [facility] Comment: Lowest Risk: <100 mg/dL Lower Risk: 100-129 mg/dL Borderline High Risk: 130-159 mg/dL High Risk: 160-189 mg/dL Very High Risk: >ix=710 mg/dL Cholesterol/HDL Ratio 3.7 ratio [facility] Lipid Interpretation See Note [facility] Comment: Lipid management should be guided by a patient? s ASCVD risk, goals and preferences. ACC/AHA Guidelines recommend high intensity statin if clinical ASCVD or LDL greater than or equal to 190 mg/dL. http://[employer].com/EGK-LAH-Xzzqxxbys Adults aged 40-75 with LDL 70-189 mg/dL should have their 10 year ASCVD risk estimated with the ACC/AHA ASCVD risk timber estimator http://tools.acc.org/PCWIC-Qocn-Iwtspcxmw/ Statin should be discussed if risk greater [...] Hallman MD CHEMISTRY ORDERABLES Performing Organization Address City/[facility]/ZIP Co de Phone Number [facility] [place] [address] * CK (06/07/2021 5:26 PM EDT) Creatine Kinase 33 0 - 160 unit/L [facility] Blood 06/07/2021 5:26 PM EDT 06/07/2021 5:36 PM EDT Narrative Resulting Agency Comment Spec In Lab Mario Hallman MD CHEMISTRY ORDERABLES Performing Organization Address City/[facility]/ZIP Co de Phone Number [facility] [place] [address] * Hemoglobin A1c (06/07/2021 5:04 PM EDT) Hemoglobin A1c 5.6 4.3 - 5.6 % [facility] [...] Mellitus, Diabetes Care 2013; 36: Suppl. 1, S67-05 Estimated Average Glucose 114 mg/dL [facility] Comment: eAG [...] into estimated average glucose values. ??Diabetes Care 2008:31(8):8590-2528. Blood 06/07/2021 5:04 PM EDT 06/07/2021 5:36 PM EDT Narrative Resulting Agency Comment Spec In Lab Mario Hallman MD CHEMISTRY ORDERABLES [facility] [place] [address] * Troponin (06/07/2021 5:04 PM EDT) Troponin-T [...] meets the diagnosis for a myocardial infarction (SC). Detection of a rise and/or fall of cTnT, with at least one value greater than the 99th percentile (> or = 0.01) and with at least one of the following ?? Symptoms of ischemia ?? New or presumed new significant OC-sdsftll-O wave (ST-T) changes or new left bundle [...] additional sample may be indicated. Reference: Third Stem Definition of Myocardial Infarction. Journal of the [employer] 2012;60:1581-98 Blood 06/07/2021 5:04 PM EDT 06/07/2021 5:36 PM EDT Narrative Resulting Agency Comment Spec In Lab Mario Hallman MD CHEMISTRY ORDERABLES Performing Organization Address City/State/[facility] Co de Phone Number [facility] [place] [address] * EKG 12 Lead (06/07/2021 4:33 PM EDT) Pathologist [facility] Ventricular rate 54 BPM MUSE SYSTEM Atrial Rate 54 BPM MUSE SYSTEM P-R Interval 166 ms MUSE SYSTEM QRS Duration 86 ms MUSE SYSTEM Q-T Interval 514 ms MUSE SYSTEM QTC Calculated (Bezet) 487 ms MUSE SYSTEM Calculated P [place] 30 degrees MUSE SYSTEM Calculated R [place] 22 degrees MUSE SYSTEM Calculated T [place] 18 degrees MUSE SYSTEM INTERPRETATION Sinus bradycardia Left atrial enlargement Cannot rule out Lateral infarct , age undetermined Abnormal ECG When compared with ECG of 31-AUG-2019 07:05, No significant change was found Confirmed by MD Dalia, Willy Huerta ([id number]) on 06/09/2021 4:36:27 PM MUSE SYSTEM 06/07/2021 4:33 PM EDT 06/09/2021 4:36 PM EDT Mario Hallman MD ECG ORDERABLES MUSE SYSTEM * COVID-19 PCR (06/07/2021 4:30 PM EDT) SARS-CoV-2 RNA (Rapid) Not Detected Not Detected [facility] Comment: This result should [...] using the Simplexa COVID-19 Direct Assay by [employer] as authorized by the FDA issued Emergency [...] Department of Pathology and Laboratory Medicine at [facility], certified under the Clinical Laboratory Improvement [...] fact sheets at the following FDA website: https://www.fda.gov/medical-devices/rgjhyngsxwn-uqfnixq-5505-avgkp-68-rdpxyosjj- use-a ldmedufylylan-jmobmpy-opwmubv/njayq-aqejmkzpdci-hacy SARS-CoV-2 Source NURSE COLLE[facility] Swab [facility] Nasopharyngeal Swab 06/08/19 4:30 PM EDT 06/07/2021 4:45 PM EDT Comment:Symptoms->Surveillan ce Narrative Resulting Agency Comment Spec In Lab Mario Hallman MD MICROBIOLOGY - GENER AL ORDERABLES [facility] [place] [address] documented in this encounter Visit Diagnoses Not [...] 06/09/21 at 1531, Shortness of Breath, Routine aspirin chewable tablet 81 mg 81 mg, Oral, DAILY, First dose on 06/07/21 at 1845, Until Discontinued, Routine Given 06/09/2021 9:39 AM EDT 81 mg Given 06/08/2021 9:08 AM EDT 81 mg atorvastatin (Lipitor) tablet 80 mg 80 mg, Oral, EVERY EVENING, First dose on [facility] 06/07/21 at 1845, Until Discontinued, Routine Given 06/08/2021 5:01 PM EDT 80 mg atropine (0.1 mg/mL) injection 1 mg 1 mg, Intravenous, Administer over 4 Hours, EVERY 5 MIN PRN, 2 doses, Starting on Wed06/09/21 at 0859, Until Wed06/09/21 at 1531, Other, vasovagal episode, Call interventional MDJessi , Cath (Recovery-Hospital Unit), Routine budesonide-formoteroL (Symbicort) 160-4.5 mcg/actuation inhaler 2 Inhalation 2 .Inhalation , Inhalation, 2 TIMES DAILY, First dose on [facility] 06/07/21 at 2100, Until Discontinued, Routine Given 06/07/2021 8:25 PM EDT 2 .Inhalat ion clopidogreL (Plavix) tablet 75 mg 75 mg, Oral, DAILY, First dose on [place] 06/08/21 at 0900, Until Discontinued, Routine Given 06/08/2021 9:08 AM EDT [address] (Cymbalta) capsule 60 mg 60 mg, Oral, DAILY, First dose on [facility] 06/07/21 at 1845, Until Discontinued, Routine Given 06/08/2021 9:02 PM EDT 60 mg Given 06/07/2021 9:00 PM EDT 60 mg empagliflozin (Jardiance) Tab 10 mg 10 mg, Oral, DAILY, First dose on [place] 06/08/21 at 1545, Until Discontinued, Routine Given [...] 40 mg, Intravenous, ONCE, 1 dose, On [place] 06/08/21 at 1545 Given 06/08/2021 5:01 PM [...] 1610, Until 06/07/21 at 1614, Luiza Armstrong: aimeeinesteven override heparin (porcine) 50 units/mL in sodium [...] Intravenous, ONCE PRN, 1 dose, Starting on Wed06/08/21 at 1109, Until Wed06/08/21 at 1109, Other, Routine Given 06/08/2021 11:09 [...] Oral, EVERY 6 HOURS PRN, Starting on Wed06/08/21 at 2107, Until Wed06/09/21 at 1531, Pain, Routine Given 06/08/2021 9:16 [...] (Given - Provider: Colette Medina RN) 0853 ([facility] Hold - Provider: Admin Adt - Reason: Transfer to a Procedural area)0929 ([facility] Unhold - Provider: Admin Adt) empagliflozin (Jardiance) Tab 10 mg 10 mg, Oral, DAILY, First dose on 06/08/21 at 1545, Until Discontinued, Routine 1717 (Given - Provider: Jo Ann Maldonado RN - Comment: awaiting medication from pharmacy) 0853 ([facility] Hold - Provider: Admin Adt - Reason: Transfer to a Procedural area)0900 (Automatically Held - Provider: Admin Adt)0929 ([facility] Unhold - Provider: Admin Adt)0940 (Given - [...] she only takes this as needed.) 0853 ([facility] Hold - Provider: Admin Adt - Reason: Transfer to a Procedural area)0900 (Automatically Held - Provider: Admin Adt)0929 ([facility] Unhold - Provider: Admin Adt) furosemide (Lasix) [...] area)0900 (Automatically Held - Provider: Admin Adt)0929 ([facility] Unhold - Provider: Admin Adt)0939 (Given - [...] refused - Comment: only takes as needed)0929 ([facility] Unhold - Provider: Admin Adt) metoprolol tartrate (Lopressor) tablet 12.5 mg 12.5 mg, Oral, EVERY 12 HOURS SCHEDULED (2 times per day), First dose on 06/07/21 at 2100, Until Discontinued, Routine 2025 (Not Given - Provider: Olive Anne RN - Reason: Order parameters not met - Comment: HR <60) 09 (Given - Provider: Jo Ann Maldonado RN)2099 (Not Given - Provider: Colette Medina RN - Reason: Order parameters not met - Comment: HR 56) 0853 ([facility] Hold - Provider: Admin Adt - Reason: Transfer to a Procedural area)899 (Not Given - Provider: Jo Ann Maldonado RN - Reason: Order parameters not met - Comment: HR 48)0929 ([facility] Unhold - Provider: Admin Adt) montelukast (Singulair) tablet 10 mg 10 mg, Oral, NIGHTLY, First dose on 06/07/21 at 2099, Until Discontinued 2025 (Given - Provider: Olive Anne RN) 2058 (Given - Provider: Colette Medina RN) 0853 ([facility] Hold - Provider: Admin Adt - Reason: Transfer to a Procedural area)09 ([facility] Unhold - Provider: Admin Adt) rOPINIRole (Requip) tablet 1 mg 1 mg, Oral, NIGHTLY, First dose on 06/07/21 at 2100, Until Discontinued, Routine 2025 (Given - Provider: Olive Anne RN) 2058 (Given - Provider: Colette Medina RN) 0853 ([facility] Hold - Provider: Admin Adt - Reason: Transfer to a Procedural area)09 ([facility] Unhold - Provider: Admin Adt) topiramate (Topamax) tablet 50 mg 50 mg, Oral, 2 TIMES DAILY, First dose on 06/07/21 at 2100, Until Discontinued, Routine 2024 (Given - Provider: Olive Anne RN) 100 (Given - Provider: Jo Ann Maldonado RN - Comment: awaiting medication from pharmacy)2110 (Given - Provider: Colette Medina RN) 0853 ([facility] Hold - Provider: Admin Adt - Reason: Transfer to a Procedural area)0929 ([facility] Unhold - Provider: Admin Adt)1254 (Given - Provider: Jo Ann Maldonado RN - Comment: awaiting medication from pharmacy) traZODone (Desyrel) tablet 100 mg 100 mg, Oral, NIGHTLY, First dose (after last reorder) on 06/07/21 at 2115, Until Discontinued, Routine 2100 (Given - Provider: Olive Anne RN) 2100 (Given - Provider: Colette Medina RN) 0853 [...] 2053, Until 06/09/21 at 1531, Headaches 0853 ([facility] Hold - Provider: Admin Adt - Reason: Transfer to a Procedural area)0929 ([facility] Unhold - Provider: Admin Adt) albuteroL (Proventil) nebulizer solution 2.5 mg 2.5 mg, Nebulization, EVERY 4 HOURS PRN, Starting on 06/07/21 at 1808, Until 06/09/21 at 1531, Shortness of Breath, Routine 0853 ([facility] Hold - Provider: Admin Adt - Reason: Transfer to a Procedural area)0929 ([facility] Unhold - Provider: Admin Adt) atropine (0.1 mg/mL) injection 1 mg 1 mg, Intravenous, Administer over 4 Hours, EVERY 5 MIN PRN, 2 doses, Starting on 06/09/21 at 0859, Until 06/09/21 at 1531, Other, vasovagal episode, Call interventional MDJessi , Cath (Recovery-Hospital Unit), Routine fentaNYL (PF) (50 mcg/mL) injection 25 mcg 25 mcg, Intravenous, Administer over 4 Hours, EVERY 30 MIN PRN, 4 doses, Starting on 06/09/21 at 0859, Until 4/4/22 at 1531, Pain, sheath removal, May repeat [...] than 0.2 international unit/mL: No Bolus, Routine 222 (Given - Provider: Olive Anne RN) hydrOXYzine [...] 1 HOUR PRN, 2 doses, Starting on Wed06/09/21 at 0859, Until Wed06/09/21 at 1531, For [...] 2116 (Given - Provider: Colette Medina RN) 0822 (MAY Hold - Provider: Admin Adt - [...] documented in this encounter Care Teams Manager Community Relationship Specialty Start Date End Date Polo Pearce PA [address] [place] [address] PCP - General Internal Medicine 06/09/21 documented as of this encounter
--- OUTSIDE RECORDS SUMMARY | 2024-01-24 12:39 | XMS_ITS | Encounter Summary ---
[place] [address] Care Team Providers Care Manager Loss Prevention Name Role Phone Polo Pearce Primary Care Provider [phone] Encounter Details Date Type Department Care Team (Late st Contact Info) Description 06/12/2021 External Results [place] [id number] Social History Tobacco Use Types Packs/Day Years [...] PM EST Office Visit Cardiology at [address] [place] [phone] Jaspreet Kinsey MD [facility] [place] [address] documented as of this encounter Procedures Procedure Name Priority Date/Time Associated Diagnosis Comments ECG SCAN Routine 06/12/2021 documented in this encounter Results * Scan Doc: ECG (06/12/2021) Historical Provider MD MEDIA MGR SCAN EX T ORDR/RSLT documented in this encounter Visit Diagnoses Not on filedocumented in this encounter Care Teams Manager Loss Prevention Relationship Specialty Start Date End Date Polo Pearce PA [address] [place] [address] PCP - General Internal Medicine 06/09/21 documented as of this encounter
--- OUTSIDE RECORDS SUMMARY | 2024-01-24 12:39 | XMS_ITS | Encounter Summary ---
[place] [address] Care Team Providers Care Apple Thinner Name Role Phone Tim Rogers DNP Primary Care Provider [phone] Reason for Visit * Reason Onset Date Comments Other 10/25/2020 Regarding Ziopat ch Encounter Details Date Type Department Care Team (Late st Contact Info) Description 10/25/2020 [place] [phone] Olive Gonzales RN Other (Regarding Ziopatch) Social [...] reach out to Pt. Pt must call [phone] to request Ziopatch. Olive Gonzales RN Department of Pulmonary [place], [facility] Pager: [phone] documented in this encounter Plan of Treatment Upcoming Encounters Date Type Department Care Team (Late st Contact Info) Description 02/10/2024 1:00 PM EST Office Visit Cardiology at [address] [place] [address] Jaspreet Kinsey MD [facility] [place] [address] documented as of this encounter Visit Diagnoses Not on filedocumented in this encounter Care Teams Apple Thinner Relationship Specialty Start Date End Date Tim Rogers DNP PCP - General Family Medicine 08/28/19 06/08/21 documented as of this encounter
--- OUTSIDE RECORDS SUMMARY | 2024-01-24 12:39 | XMS_ITS | Encounter Summary ---
[place] [address] Care Team Providers Care Assembly Machine Offbearer Name Role Phone Polo Pearce Primary Care Provider [phone] Reason for Referral * Diagnostic Test (Routine) - Closed Specialty Diagnoses / Procedures Referred By Jayant harris Referred To Contact Cardiology Diagnoses Elevated blood pressure reading without diagnosis of hypertension Procedures Ziopatch 48 Hrs-15 Days Deja Zaidi, JOCY [address] [address] [facility] [place] [address] Referral ID Status Reason Start Date Expiration Date V isits Requested Visits Authorized [id number] Closed Specialty Service Requested 06/09/2021 12/09/2021 1 1 Reason for Visit * Auth/Cert Specialty Diagnoses / Procedures Referred By Jayant harris Referred To Contact Diagnoses NSTEMI (non-ST elevated myocardial infarction) NSTEMI Procedures EMERGENCY OBSVO Referral ID Status Reason Start Date Expiration Date Visits Re quested Visits Authorized [id number] 1 1 Encounter Details Date Type Department Care Team (Latest Contact Info) Description 06/07/2021 3:49 PM EDT - 06/09/2021 3:25 PM EDT Hospital Encounter Intermediate Cardiac Care Unit [facility] [place] [address] Mario Hallman MD [facility] [place] [address] NSTEMI (non-ST elevated myocardial infarction); Elevated blood [...] Loida Roque Patient Age: 51 y.o. Language: Peruvian Race: White Ethnicity: Not [...] in a week and prn ?? Consider [place] as an out patient Inpatient Provider Contact Information: Dr. Mario Zaidi PA-C [phone] Discharge Diagnoses (Hospital Problems) and Secondary Diagnoses [...] change from prior in 08/2019. ?? Procedure Complete-34748. Image enhancement Definity was used for left [...] have questions please contact the health rn home care that requested your imaging first. CXR [...] hysterectomy, Insomnia, and migraine who presents to [email or web address]] with RUQ pain that radiated to her [...] 15. ?? Hospital Course: On admission to [facility], the patient had no complaints of chest pain or shortness of breath at rest.Telemetry was attached which showed normal sinus rhythm. Heparin drip was infusing. [facility] records/transfer records were reviewed. Baseline labs were checked and/or drawn. Chest Pain, NV ruled out, Echo showed preserved LVEF Given the patient's risk factors, chronic non-specific ST-T changes on ECG, and here at [facility] normaltroponin as well as reproducible chest tenderness [...] significant weight, however during her stay at [facility] now she lost only 0.9 kg, to [...] needed Follow up Appointments: PCP Tim Rogers, TALENT ACQUISITION RELATIONSHIP MANAGER [phone] to see you in a week (patient to set this up) Mel placed on 06/09/2021 Cardiology to see in a month and prn. Dr. Kinsey to see the patient in Lane on July 23 at 920 am. Please call [phone] with questions. Home oxygen therapy: N/A Arrangements for VNA/home care: none Future Appointments and Orders Future Appointments and Orders Future Appointments Provider Department Dept Phone 07/23/2021 8:20 AM Jaspreet Kinsey MD Cardiology at Lane Arrive at: [facility] [address] [phone] Future Orders Complete By Expires Mel 48 Hrs-15 Days [[id number] CPT(R)] 06/09/2021 12/09/2021 Process Instructions: Scheduling Instructions: Questions: Does the patient have a pacemaker? If yes provide HI/LO settings: Apply for 7 or 14 days?: 14 Where will study be performed?: [facility] Clinics Basic Metabolic Panel (non-fasting) [LAB15 Custom] 06/16/2021 (Approximate) 06/09/2022 Process Instructions: INCLUDES: Calcium, BUN, Creat, GFR, Glucose, Lytes Scheduling Instructions: Comments: Questions: Discharge References/Attachments None documented in this encounter Discharge Instructions * Discharge Instructions* Deja Zaidi PA - 06/08/2021 1:56 PM EDT Return to work: One week Driving: as needed Follow up Appointments: PCP Tim Rogers, TALENT ACQUISITION RELATIONSHIP MANAGER [phone] to see you in a week (patient to set this up) Mel placed on 06/09/2021 Cardiology to see in a month and prn. Dr. Kinsey to see the patient in Lane on July 23 at 920 am. Please call [phone] with questions. Home oxygen therapy: N/A Arrangements for VNA/home care: none documented in this encounter Medications at Time of Discharge Medication Sig Dispensed Refills Start Date End Date rOPINIRole (Requip) 1 mg Tablet Take 2 mg by mouth 2 times daily. 07/16/2020 loratadine (Claritin) 10 mg Tablet Take 10 mg by mouth daily as needed. fluticasone propionate (FLONASE) 50 mcg/actuation [place], Suspension 1 spray by Each Nare route [...] Nutrition Plan: Pt seen for Na2gm diet. Reduction Furnace Operator Helper informed pt of current diet orders and their restrictions. Pt expressed understanding and informed this instructional writer that she tries to limit salt use at home. Reduction Furnace Operator Helper and pt discussed common sources of sodium (pre-prepared foods) and alternatives (fresh/frozen veggies). Provided educational material and encouraged pt to reach out with any questions or concerns. Will continue to monitor and follow up. Continue current diet. Monitor weight. Encourage good oral intake. Support and encouragement provided. Discussed case with Clinical Dietitian Active Orders Diet Daily Healthy Menu Choices/Cardiac diet ([facility]-Diet) 2 GM NA Frequency: Effective Now Number [...] nausea and no vomiting Last Bowel Movement: (PAINT PROCESS ENGINEER) Patient education / questions: provided diet order education and patient with good understanding, written education and contact information provided and all nutrition related questions answered at this time Nutrition services to follow weekly through hospital course unless consulted in the interim. Rocio Rosenthal Pager: [phone] * Deja Zaidi PA - 06/09/2021 9:14 AM EDT Inpatient Cardiology Discharge Day Note Patient Name: Loida Roque Service: AUTHORIZATION NURSE / PA Responsible Attending: Mario Hallman MD [...] 54 sinus bradycardia Meds: Scheduled Meds: ??? [May] empagliflozin 10 mg Oral Daily ??? [MAY [...] (PF), atropine, fentaNYL (PF), [MAY Hold] acetaminophen, [May] traMADoL, [May] hydrOXYzine, [MAY Hold] albuteroL Physical Exam: Vital [...] (from the past 24 hour(s)) urine, qualitative ([place]/[facility]/CGP/NL) Result Value Ref Range Spec [place] UA 1.010 1.006 - 1.030 HCG Qual [...] seen on recent CT scan presents to [facility] from [facility] [[email or web address]] with a NSTEMI. She has an elevated [...] with Dr. Hallman. ?? JOCY Hernandez Pager [phone] JOCY MCKOY 06/09/2021 Associated attestation - Mario Hallman MD - 06/09/2021 9:37 PM EDT Cardiology Attending Addendum I shared this visit with JOCY Zaidi and guided the medical decision- making. I explained to patient the findings of echo, R heart catheterization and our diagnostic impression and medications (furosemide and empagliflozin) and possible adverse events. More than 30 minutes were spent in [id number] contact with patient and with arranging discharge [...] Jaspreet Pardo - 06/08/2021 8:34 PM EDT Operations Systems Specialist Encounter Note Patient Name: Loida Roque : [id number] MR#: [id number] Admit Date: 06/07/2021 3:49 PM Hospital Day 0 days Narrative: Initial rounding visit to introduce motor teacher services and to assess patient interest. Patient [...] Day Note Patient Name: Loida Roque Service: AUTHORIZATION NURSE / PA Responsible Attending: Mario Hallman MD [...] PCR Not Detected Not Detected SARS-CoV-2 Source AUTHORIZATION NURSE Swab Troponin Result Value Ref Range Troponin-T [...] seen on recent CT scan presents to [facility] from [facility] [[email or web address]] with a NSTEMI. She has an elevated [...] with Dr. Hallman. ?? 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 Financial Resource Strain: Not [...] Daily. ??? fluticasone propionate (FLONASE) 50 mcg/actuation [place], Suspension 1 spray by Each Nare route [...] seen on recent CT scan presents to [facility] from [facility] [[email or web address]] with a NSTEMI. She has an elevated trop, BNP and lateral EKG changes. Patient is now awaiting an Echo and cardiac cath. Neurology consult called in to determine if she needs imaging prior to her Echo and cath given garbled speech a week ago. Stable at this time. TREATMENT PLAN: NSTEMI Admit to [facility] for telemetry monitoring Serial enzymes and EKGs [...] JOCY Hernandez 06/07/2021 Provider: JOCY MCKOY Pager [phone] 06/07/2021 Associated attestation - Mario Hallman MD [...] COVID test: Lab Results Component Value Date [id number] Not Detected 06/07/2021 Present on Admission: ??? [...] Primary care provider on file: Tim Rogers, TALENT ACQUISITION RELATIONSHIP MANAGER [phone] Pharmacy: [id number] - [place], [place] - [address] [facility] [address] [place] [id number] Advance Care Planning: Attempt Cardiopulmonary Resuscitation - Inpatient <no information> -Advanced Directive: No, declines (Boby (spouse) SDM) Current Functional Ability: Independent Functional Status Prior to Admission: Independent Home Environment: Others in the home: spouse. Current Living Arrangements: home/apartment/condo. Accessibility Concerns: . Current DME: none [address] [facility] [address] Social & Family Supports: All names listed [...] private vehicle when medically ready. Registered Nurse Telephony Engineer / Instructor Ground Services will continue to follow patient???s progress and [...] well known:: 05/26/21 Time last well known:: 0900 Date of discovery of symptoms:: 05/27/21 Time [...] Daily. ??? 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 Consider POWER LINE INSTALLER consult for full evaluation and diet recommendations. [...] for further details. JOCY MCKOY 06/07/2021 Pager [phone] documented in this encounter Plan of Treatment Upcoming Encounters Date Type Department Care Team (Late st Contact Info) Description 02/10/2024 1:00 PM EST Office Visit Cardiology at [address] [place] [id number] Jaspreet Kinsey MD [facility] [place] [address] documented as of this encounter Procedures Procedure [...] Modality Other Narrative 07/01/2021 9:29 AM EDT [facility] ? Zio Patch? Ambulatory Cardiac Event Monitor [...] as described ?? Kurt Larose MD, PhD, FACC Cardiac Electrophysiology Mario Hallman MD CARDIAC SERVICES ORD ERABLES * CARDIAC CATHETERIZATION (06/09/2021 9:05 AM EDT) Anatomical Region Laterality Modality Other Narrative 06/09/2021 9:09 AM EDT ?[facility] ? Cardiac Catheterization/Intervention Report ? Patient Name: Neisha, Loida ? Procedure Date: 06/09/2021 ? A #: [id number] ? Primary Physician: Aaron Ash ? Case #: [id number] ? File Name: [id number] ? Catheterization Order Number: [id number] ? [facility] ? Final Report [place], [place] ? Patient Name: ? Loida Neisha ? ID#: ?[id number] ? : ?1970 ? Procedure Date: ? [...] was ?designated as ASA Class III. The [facility] clinical frailty scale is 2: Well. [...] procedure was Urgent. The indication for ?the wheelabrator operator visit is other indication. Chest pain symptom [...] Procedure Note Aaron Ash MD - 06/23/2021 [facility] Cardiac Catheterization/Intervention Report Patient Name: Lodia Roque Procedure Date: 06/09/2021 A #: [id number] Primary Physician: Aarno Ash Case #: [id number] File Name: [id number] Catheterization Order Number: [id number] [facility] FinalReport [place], [place] Patient Name: Loida Roque ID#:[id number] :1970 Procedure Date: June 09, 2021 Case [...] patientwas designated as ASA Class III. The [facility] clinical frailty scale is 2:Well. Diagnostic [...] diagnostic procedure was Urgent. The indicationfor the wheelabrator operator visit is other indication. Chest pain symptomassessment [...] pro-Brain Natriuretic Peptide (06/09/2021 3:37 AM EDT) [facility] NT-proBNP 911(H) <=124 pg/mL [facility] Blood Venous Draw / Unknown 06/09/2021 3:37 AM EDT 06/09/2021 3:59 AM EDT Narrative Resulting Agency Comment Spec In Lab Deja SANDRA CHEMISTRY ORDERABLES [facility] [place] [address] * Differential, Automated (06/09/2021 3:37 AM EDT) [facility] Neutrophil % 64.9 % [facility] Neutrophil Absolute 5.12 1.70 - 6.10 x10(3)/[facility] Lymph % 21.9 % [facility] Lymphocytes Abs 1.7 0.9 - 3.2 x10(3)/[facility] Monocyte % 8.6 % [facility] Monocyte Abs 0.7 0.3 - 0.9 x10(3)/[facility] Eos % 3.4 % [facility] Eosinophils Abs 0.3 0.0 - 0.4 x10(3)/[facility] Basophil % 0.8 % [facility] Baso Absolute 0.1 0.0 - 0.1 x10(3)/[facility] Immature Gran % 0.40 % [facility] Comment: Immature granulocytes(IG's)percentage and absolute count will include metamyelocytes, myelocytes, and promyelocytes. Blood smears from CBCs yielding IG's will be scanned manually for concordance. If this scan disagrees with the automated IG or if promyelocytes are noted, a manual differential will be performed. Immature Gran Absolute 0.03 0.00 - 0.04 x10(3)/[facility] Blood 06/09/2021 3:37 AM EDT 06/09/2021 3:58 AM EDT Narrative Resulting Agency Comment Spec In Lab Deja SANDRA HEMATOLOGY ORDERABLE S Performing Organization Address City/State/[facility] Co de Phone Number [facility] [place] [address] * (ABNORMAL) Hemogram (06/09/2021 3:37 AM EDT) White Blood Cell 7.9 4.0 - 9.5 x10(3)/ L [facility] Red Blood Cell 4.88 4.00 - 5.21 x10(6)/[facility] Hemoglobin 15.2 11.7 - 15.5 g/dL [facility] Hematocrit 46.5(H) 35.7 - 45.8 % [facility] Mean Cell Volume 95.3(H) 82.6 - 94.4 fL [facility] Mean Cell Hemoglobin 31.1 27.1 - 32.0 pg [facility] Mean Cell Hemoglobin Concentration 32.7 31.7 - 35.0 g/dL [facility] Platelet 334 145 - 357 x10(3)/ L [facility] RDW Standard Deviation 49.2(H) 37.0 - 46.0 fL [facility] RDW coefficient of variation 14.5(H) 11.5 - 14.1 % [facility] Mean Platelet Volume 10.2 7.6 - 12.9 fL [facility] NRBC% auto 0.0 % [facility] NRBC Absolute 0.000 0.000 - 0.000 x10(3)/mc L [facility] Blood 06/09/2021 3:37 AM EDT 06/09/2021 3:58 AM EDT Narrative Resulting Agency Comment Spec In Lab Deja SANDRA HEMATOLOGY ORDERABLE S Performing Organization Address City/[facility] Co de Phone Number [facility] [place] [phone] * (ABNORMAL) BMP w/fasting Glucose (06/09/2021 3:37 [...] Hallman MD CHEMISTRY ORDERABLES [facility] [place] [address] * Heparin (unfractionated) Level (06/08/2021 4:07 PM [...] MD HEMATOLOGY ORDERABLE S [facility] [place] [address] * XR Chest PA & Lateral (Generic) [...] have questions please contact the health rn home care that requested your imaging first. ? Electronically signed by: Magda Machado MD, [facility] ([phone]), at 06/08/2021 6:00 PM Narrative 06/08/2021 6:00 [...] who have questions please contactthe health rn home care that requested your imaging first. Electronically signed by: Magda Machado MD, [facility] ([phone]), at 06/08/2021 6:00 PM Mario Hallman MD [...] have questions please contact the health rn home care that requested your imaging first. ? [...] who have questions please contactthe health rn home care that requested your imaging first. Mario Hallman MD [facility] MRI ORDERABLES * (ABNORMAL) CRP, acute inflammation (06/08/2021 11:58 AM EDT) C-Reactive Protein 28.1(H) <=4.9 mg/L [facility] Blood 06/08/2021 11:5 8 AM EDT 06/08/2021 12:04 PM EDT Narrative Resulting Agency Comment Spec In Lab Mario Hallman MD CHEMISTRY ORDERABLES Performing Organization Address [facility] Co de Phone Number [facility] [place] [address] * CK (06/08/2021 11:58 AM EDT) Creatine Kinase 30 0 - 160 unit/L [facility] Blood 06/08/2021 11:5 8 AM EDT 06/08/2021 12:04 PM EDT Narrative Resulting Agency Comment Spec In Lab Mario Hallman MD CHEMISTRY ORDERABLES Performing Organization Address [facility] de Phone Number [facility] [place] [address] * (ABNORMAL) Sedimentation rate (06/08/2021 11:58 AM [...] MD HEMATOLOGY ORDERABLE S Performing Organization Address [facility] Co de Phone Number [facility] [place] [address] * Heparin (unfractionated) Level (06/08/2021 11:58 AM [...] MD HEMATOLOGY ORDERABLE S Performing Organization Address [facility] Co de Phone Number [facility] [place] [address] * urine, qualitative ([facility]/CGP/NLH) (06/08/2021 11:51 AM EDT) Specific [place] Urine Automated 1.010 1.006 - 1.030 [facility] [...] Hallman MD URINE ORDERABLES Performing Organization Address [facility] Co de Phone Number [facility] [place] [address] * ECHO COMPLETE W CONTRAST (06/08/2021 11:09 AM EDT) Anatomical Region Laterality Modality Other 06/08/2021 9:35 AM EDT Narrative 06/08/2021 12:42 PM EDT ?[facility] ?[address] ? [place] [address] ?Voice: ?Fax: ? Echocardiogram Report Name: NEISHA, LOIDA ? Study Date: 06/08/2021 09:35 AMBP: 109/69 mmHg ? Patient Location: ICCU^432^A : 1970 ? Height: 163 cm ? Account: [id number] Age: 51 yrs ? Weight: 95 kg Gender: Female ?BSA: 2.0 m2 Ordering Physician: DONALD Referring Physician: AJ HARTMAN Performed By: Aaron Herr RDCS Reason For Study: NSTEMI (non-ST elevated myocardial infarction) Exam Location: [facility]. Interpretation Summary 1. Left ventricle is of [...] significant change from prior in 08/2019. Procedure Complete-[id number]. Image enhancement Definity was used for left [...] Procedure Note Kai Haider MD - 06/08/2021 [place] [address] [place] [address] Voice: Fax: Echocardiogram Report Name: LOIDA ROQUE Study Date: 209:35 AMBP: 109/69 mmHg Patient Location:[place] [address]^A : 1970 Height: 163 cm Account: [id number] Age: 51 yrs Weight: 95 kg Gender: Female BSA: 2.0 m2 Ordering Physician: DONALD Referring Physician: AJ HARTMAN Performed By: Aaron Herr RDCS Reason For Study: NSTEMI (non-ST elevated myocardial infarction) Exam Location: [facility]. Interpretation Summary 1. Left ventricle is of [...] significant change from prior in 08/2019. Procedure Complete-[id number]. Image enhancement Definity was used for left [...] Heparin (unfractionated) Level (06/08/2021 5:54 AM EDT) [facility] UF Heparin 1.20(Crit ical) IU/mL [facility] [...] MD HEMATOLOGY ORDERABLE S [facility] [place] [address] * (ABNORMAL) Differential, Automated (06/08/2021 4:41 AM EDT) [facility] Neutrophil % 71.8 % [facility] Neutrophil Absolute 8.09(H) 1.70 - 6.10 x10(3)/mc L [facility] Lymph % 18.0 % [facility] Lymphocytes Abs 2.0 0.9 - 3.2 x10(3)/mc L [facility] Monocyte % 5.7 % [facility] Monocyte Abs 0.6 0.3 - 0.9 x10(3)/[facility] LABOR[facility] Eos % 3.5 % [facility] Eosinophils Abs 0.4 0.0 - 0.4 x10(3)/[facility] Basophil % 0.6 % [facility] [...] Immature Gran Absolute 0.05(H) 0.00 - 0.04 x10(3)/[facility] Blood 06/08/2021 4:41 AM EDT 06/08/2021 5:11 AM EDT Narrative Resulting Agency Comment Spec In Lab Deja SANDRA HEMATOLOGY ORDERABLE S [facility] [place] [address] * (ABNORMAL) Hemogram (06/08/2021 4:41 AM EDT) White Blood Cell 11.3(H) 4.0 - 9.5 x10(3)/[facility]OR[facility] Red Blood Cell 4.64 4.00 - 5.21 x10(6)/[facility] Hemoglobin 13.9 11.7 - 15.5 g/dL [facility] Hematocrit 43.0 35.7 - 45.8 % [facility] Mean Cell Volume 92.7 82.6 - 94.4 fL [facility] Mean Cell Hemoglobin 30.0 27.1 - 32.0 pg [facility] Mean Cell Hemoglobin Concentration 32.3 31.7 - 35.0 g/dL [facility] Platelet 312 145 - 357 x10(3)/mc L [facility] RDW Standard Deviation 47.4(H) 37.0 - 46.0 fL [facility] RDW coefficient of variation 14.3(H) 11.5 - 14.1 % [facility] Mean Platelet Volume 10.8 7.6 - 12.9 fL [facility] NRBC% auto 0.0 % [facility] NRBC Absolute 0.000 0.000 - 0.000 x10(3)/mc L [facility] Blood 06/08/2021 4:41 AM EDT 06/08/2021 5:11 AM EDT Narrative Resulting Agency Comment Spec In Lab Deja SANDRA HEMATOLOGY ORDERABLE S Performing Organization Address City/State/[facility] Co de Phone Number [facility] [place] [phone] * (ABNORMAL) Heparin (unfractionated) Level (06/08/2021 4:41 AM EDT) UF Heparin 1.06(Crit ical) IU/mL [facility] Comment: Critical Result called by ?Peter ZARATE CRITICAL Results read back by: ? Veronica [...] MD HEMATOLOGY ORDERABLE S [facility] [place] [address] * (ABNORMAL) BMP w/fasting Glucose (06/08/2021 4:41 [...] Hallman MD CHEMISTRY ORDERABLES [facility] [place] [address] * Troponin (06/08/2021 4:41 AM EDT) Troponin-T [...] ischemia ?? New or presumed new significant NO-vzmpgxr-Z wave (ST-T) changes or new left bundle [...] additional sample may be indicated. Reference: Third [place] Definition of Myocardial Infarction. Journal of the [place] [employer] 2012;60:1581-98 Blood 06/08/2021 4:41 AM EDT 06/08/2021 5:12 AM EDT Narrative Resulting Agency Comment Spec In Lab Mario Hallman MD CHEMISTRY ORDERABLES Performing Organization Address City/[facility] Co de Phone Number [facility] [place] [address] * Heparin (unfractionated) Level (06/07/2021 9:55 PM [...] MD HEMATOLOGY ORDERABLE S Performing Organization Address City/[facility]/ZIP Co de Phone Number [facility] [place] [address] * (ABNORMAL) pro-Brain Natriuretic Peptide (06/07/2021 5:26 PM EDT) NT-proBNP 2,701(H) <=124 pg/mL [facility] Blood Venous Draw / Unknown 06/07/2021 5:26 PM EDT 06/07/2021 5:44 PM EDT Narrative Resulting Agency Comment Spec In Lab Deja SANDRA CHEMISTRY ORDERABLES [facility] [place] [address] * (ABNORMAL) Differential, Automated (06/07/2021 5:26 PM EDT) Neutrophil % 74.6 % [facility] Neutrophil Absolute 8.97(H) 1.70 - 6.10 x10(3)/[facility] LABORATORY Lymph % 15.9 % [facility] Lymphocytes Abs 1.9 0.9 - 3.2 x10(3)/[facility] LABORATORY Monocyte % 6.0 % [facility] Monocyte Abs 0.7 0.3 - 0.9 x10(3)/[facility] LABORATORY Eos % 2.6 % [facility] Eosinophils Abs 0.3 0.0 - 0.4 x10(3)/[facility] LABORATORY Basophil % 0.5 % [facility] [...] Immature Gran Absolute 0.05(H) 0.00 - 0.04 x10(3)/ L [facility] Blood 06/07/2021 5:26 PM EDT 06/07/2021 5:36 PM EDT Narrative Resulting Agency Comment Spec In Lab Deja SANDRA HEMATOLOGY ORDERABLE S [facility] [place] [address] * (ABNORMAL) Hemogram (06/07/2021 5:26 PM EDT) [...] SANDRA HEMATOLOGY ORDERABLE S [facility] [place] [address] * BMP w/fasting Glucose (06/07/2021 5:26 PM EDT) [facility] Glucose Fasting 90 65 - 99 mg/dL [...] Hallman MD CHEMISTRY ORDERABLES [facility] [place] [address] * T3 Total (06/07/2021 5:26 PM EDT) Pathologist [facility] T3 Total 134 80 - 200 ng/dL [facility] Blood 06/07/2021 5:26 PM EDT 06/07/2021 5:36 PM EDT Narrative Resulting Agency Comment Spec In Lab Mario Hallman MD CHEMISTRY ORDERABLES Performing Organization Address City/[facility]/ZIP Co de Phone Number [facility] [place] [address] * T4 Total (06/07/2021 5:26 PM EDT) [facility] T4 Total 6.8 5.3 - 11.6 mcg/dL [facility] Comment: Reference Interval (mcg/dL): Females: ??First Trimester: 6.3-13.5 ??Second Trimester: 7.1-14.3 ??Third Trimester: 6.9-14.1 Blood 06/07/2021 5:26 PM EDT 06/07/2021 5:36 PM EDT Narrative Resulting Agency Comment Spec In Lab Mario Hallman MD CHEMISTRY ORDERABLES Performing Organization Address City/[facility]/ZIP Co de Phone Number [facility] [place] [address] * (ABNORMAL) TSH (06/07/2021 5:26 PM EDT) Thyroid Stimulating Hormone 5.83(H) 0.27 - 4.20 mcIU/mL [facility] Comment: Reference Interval (mcIU/mL): Females: ??First Trimester: 0.23-3.88 ??Second Trimester: 0.22-3.90 ??Third Trimester: 0.44-4.66 Blood 06/07/2021 5:26 PM EDT 06/07/2021 5:36 PM EDT Narrative Resulting Agency Comment Spec In Lab Mario Hallman MD CHEMISTRY ORDERABLES Performing Organization Address City/[facility]/ZIP Co de Phone Number [facility] [place] [address] * Lipase (06/07/2021 5:26 PM EDT) Lipase 18 0 - 60 unit/L [facility] Blood 06/07/2021 5:26 PM EDT 06/07/2021 5:36 PM EDT Narrative Resulting Agency Comment Spec In Lab Mario Hallman MD CHEMISTRY ORDERABLES Performing Organization Address City/[facility]/ZIP Co de Phone Number [facility] [place] [address] * Amylase (06/07/2021 5:26 PM EDT) Amylase 39 28 - 100 unit/L [facility] Blood 06/07/2021 5:26 PM EDT 06/07/2021 5:36 PM EDT Narrative Resulting Agency Comment Spec In Lab Mario Hallman MD CHEMISTRY ORDERABLES Performing Organization Address City/[facility]/ZIP Co de Phone Number [facility] [place] [address] * Lipid Panel (Reflex Direct LDL) (06/07/2021 5:26 PM EDT) Pathologist [facility] Cholesterol, Total 164 mg/dL [facility] Comment: Lower Risk: <200 mg/dL Average Risk: 200-239 mg/dL Higher Risk: >jk=386 mg/dL Triglyceride 144 mg/dL [facility] Comment: Average Risk/Lower Risk: <150 mg/dL Borderline High Risk: 150-199 mg/dL High Risk: 200-499 mg/dL Very High Risk: >xt=348 mg/dL HDL Cholesterol 44 mg/dL [facility] Comment: Males: ?? Higher Risk: <40 mg/dL Females: ?? Higher Risk: <50 mg/dL LDL Cholesterol 91 mg/dL [facility] Comment: Lowest Risk: <100 mg/dL Lower Risk: 100-129 mg/dL Borderline High Risk: 130-159 mg/dL High Risk: 160-189 mg/dL Very High Risk: >ee=830 mg/dL Cholesterol/HDL Ratio 3.7 ratio [facility] Lipid Interpretation See Note [facility] Comment: Lipid management should be guided by a patient? s ASCVD risk, goals and preferences. ACC/AHA Guidelines recommend high intensity statin if clinical ASCVD or LDL greater than or equal to 190 mg/dL. http://Emissary.com/HEJ-AHV-Wcebjzbaz Adults aged 40-75 with LDL 70-189 mg/dL should have their 10 year ASCVD risk estimated with the ACC/AHA ASCVD risk senior cost estimator http://tools.acc.org/EIVKR-Wijn-Jmeishzae/ Statin should be discussed if risk greater [...] Hallman MD CHEMISTRY ORDERABLES [facility] [place] [address] * CK (06/07/2021 5:26 PM EDT) Pathologist [facility] Creatine Kinase 33 0 - 160 unit/L [facility] Blood 06/07/2021 5:26 PM EDT 06/07/2021 5:36 PM EDT Narrative Resulting Agency Comment Spec In Lab Mario Hallman MD CHEMISTRY ORDERABLES [facility] [place] [address] * Hemoglobin A1c (06/07/2021 5:04 PM EDT) [facility] Hemoglobin A1c 5.6 4.3 - 5.6 % [...] 36: Suppl. 1, S67-74 Estimated Average Glucose 114 mg/dL [facility] [...] into estimated average glucose values. ??Diabetes Care 2008:31(8):5992-0916. Blood 06/07/2021 5:04 PM EDT 06/07/2021 5:36 PM EDT Narrative Resulting Agency Comment Spec In Lab Mario Hallman MD CHEMISTRY ORDERABLES [facility] [address] * Troponin (06/07/2021 5:04 PM EDT) Troponin-T [...] ischemia ?? New or presumed new significant VG-lbmocqb-E wave (ST-T) changes or new left bundle [...] additional sample may be indicated. Reference: Third [place] Definition of Myocardial Infarction. Journal of the [place] [employer] 2012;60:1581-98 Blood 06/07/2021 5:04 PM EDT 06/07/2021 5:36 PM EDT Narrative Resulting Agency Comment Spec In Lab Mario Hallman MD CHEMISTRY ORDERABLES Performing Organization Address [facility] Co de Phone Number [facility] [place] [address] * EKG 12 Lead (06/07/2021 4:33 PM EDT) Ventricular rate 54 BPM MUSE SYSTEM Atrial Rate 54 BPM MUSE SYSTEM P-R Interval 166 ms MUSE SYSTEM QRS Duration 86 ms MUSE SYSTEM Q-T Interval 514 ms MUSE SYSTEM QTC Calculated (Bezet) 487 ms MUSE SYSTEM Calculated P [place] 30 degrees MUSE SYSTEM Calculated R [place] 22 degrees MUSE SYSTEM Calculated T [place] 18 degrees MUSE SYSTEM INTERPRETATION Sinus bradycardia Left atrial enlargement Cannot rule out Lateral infarct , age undetermined Abnormal ECG When compared with ECG of 31-AUG-2019 07:05, No significant change was found Confirmed by MD Dalia, Willy Huerta ([id number]) on 06/09/2021 4:36:27 PM MUSE SYSTEM 06/07/2021 4:33 PM EDT 06/09/2021 4:36 PM EDT Mario Hallman MD ECG ORDERABLES Performing Organization Address [facility] Co de Phone Number MUSE SYSTEM * COVID-19 PCR (06/07/2021 4:30 PM EDT) Pathologist [facility] SARS-CoV-2 RNA (Rapid) Not Detected Not Detected [...] using the Simplexa COVID-19 Direct Assay by [employer] as authorized by the FDA issued Emergency [...] Department of Pathology and Laboratory Medicine at [facility], certified under the Clinical Laboratory Improvement Amendments [...] fact sheets at the following FDA website: https://www.fda.gov/medical-devices/aaryqpgehxr-rcmomzg-3436-tcdpt-67-bqzcukebn- use-a yalsotdraezlj-qnvnuyd-ycpstze/nzici-jywoinpjlkz-dbvd SARS-CoV-2 Source AUTHORIZATION NURSE Swab MA [facility] Nasopharyngeal Swab 06/08/19 4:30 PM EDT 06/07/2021 4:45 PM EDT Comment:Symptoms->Surveillan ce Narrative Resulting Agency Comment Spec In Lab Mario Hallman MD MICROBIOLOGY - GENER AL ORDERABLES [facility] [place] [address] documented in this encounter Visit Diagnoses Diagnosis [...] 6 HOURS PRN, Starting on Wed06/08/21 at 2053, Until Wed06/09/21 at 1531, Headaches [...] Inhalation, 2 TIMES DAILY, First dose on [facility] 06/07/21 at 2100, Until Discontinued, Routine Given 06/07/2021 8:25 PM EDT 2 .Inhalat ion clopidogreL (Plavix) tablet 75 mg 75 mg, Oral, DAILY, First dose on [place] 06/08/21 at 0900, Until Discontinued, Routine Given 06/08/2021 9:08 AM EDT [address] (Cymbalta) capsule 60 mg 60 mg, Oral, DAILY, First dose on [facility] 06/07/21 at 1845, Until Discontinued, Routine Given 06/08/2021 9:02 PM EDT 60 mg Given 06/07/2021 9:00 PM EDT 60 mg empagliflozin (Jardiance) Tab 10 mg 10 mg, Oral, DAILY, First dose on [place] 06/08/21 at 1545, Until Discontinued, Routine Given [...] 40 mg, Intravenous, ONCE, 1 dose, On [place] 06/08/21 at 1545 Given 06/08/2021 5:01 PM EDT 40 mg furosemide (Lasix) tablet 20 mg 20 mg, Oral, DAILY, First dose on [facility] 06/07/21 at 1845, Until Discontinued, Routine Given 06/09/2021 9:39 AM EDT 20 mg Given 06/08/2021 9:08 AM EDT 20 mg gabapentin (Neurontin) capsule 300 mg 300 mg, Oral, 2 TIMES DAILY, First dose on [facility] 06/07/21 at 2100, Until Discontinued, Routine [...] area)0900 (Automatically Held - Provider: Admin Adt)0929 ([employer] [facility] [employer] Unhold - Provider: Admin Adt)0940 (Given - [...] she only takes this as needed.) 0853 ([employer] [facility] [employer] Hold - Provider: Admin Adt - Reason: Transfer to a Procedural area)0900 (Automatically Held - Provider: Admin Adt)0929 ([employer] [facility] Unhold - Provider: Admin Adt) furosemide (Lasix) [...] - Provider: Jo Ann Maldonado RN) 0853 ([employer] [facility] [employer] Hold - Provider: Admin Adt - Reason: Transfer to a Procedural area)0900 (Automatically Held - Provider: Admin Adt)0929 ([employer] Unhold - Provider: Admin Adt)0939 (Given - Provider: Jo Ann Maldonado RN) gabapentin (Neurontin) capsule 300 mg 300 mg, Oral, 2 TIMES DAILY, First dose on 06/07/21 at 2100, Until Discontinued, Routine 2026 (Given - Provider: Olive Anne RN) 0908 (Given - Provider: Jo Ann Maldonado RN)210 (Given - Provider: Colette Medina RN) 0853 ([employer] Hold - Provider: Admin Adt - Reason: Transfer to a Procedural area)0900 (Automatically Held - Provider: Admin Adt)0929 ([employer] Unhold - Provider: Admin Adt)0940 (Given - [...] area)0900 (Automatically Held - Provider: Admin Adt)0929 ([employer] [facility] [employer] Unhold - Provider: Admin Adt)0939 (Given - [...] takes this as needed for allergies.) 0853 ([employer] [facility] [employer] Hold - Provider: Admin Adt - Reason: Transfer to a Procedural area)0900 (Not Given - Provider: Jo Ann Maldonado RN - Reason: Patient/family refused - Comment: only takes as needed)0929 ([employer] Unhold - Provider: Admin Adt) metoprolol tartrate [...] not met - Comment: HR 56) 0853 ([employer] Hold - Provider: Admin Adt - Reason: Transfer to a Procedural area)0900 (Not Given - Provider: Jo Ann Maldonado RN - Reason: Order parameters not met - Comment: HR 48)0929 ([employer] [facility] [employer] Unhold - Provider: Admin Adt) montelukast (Singulair) tablet 10 mg 10 mg, Oral, NIGHTLY, First dose on 06/07/21 at 2100, Until Discontinued 2025 (Given - Provider: Olive Anne RN) 2058 (Given - Provider: Colette Medina RN) 0853 ([employer] [facility] Hold - Provider: Admin Adt - Reason: Transfer to a Procedural area)0929 ([employer] [facility] [employer] Unhold - Provider: Admin Adt) rOPINIRole (Requip) tablet 1 mg 1 mg, Oral, NIGHTLY, First dose on 06/07/21 at 2100, Until Discontinued, Routine 2025 (Given - Provider: Olive Anne RN) 2058 (Given - Provider: Colette Medina RN) 0853 ([employer] [facility] [employer] Hold - Provider: Admin Adt - Reason: Transfer to a Procedural area)0929 ([employer] [facility] [employer] Unhold - Provider: Admin Adt) topiramate (Topamax) tablet 50 mg 50 mg, Oral, 2 TIMES DAILY, First dose on 06/07/21 at 2100, Until Discontinued, Routine 2024 (Given - Provider: Olive Anne RN) 1009 (Given - Provider: Jo Ann Maldonado RN - Comment: awaiting medication from pharmacy)2110 (Given - Provider: Colette Medina RN) 0853 ([employer] Hold - Provider: Admin Adt - Reason: Transfer to a Procedural area)0929 ([employer] [facility] Unhold - Provider: Admin Adt)1254 (Given - Provider: Jo Ann Maldonado RN - Comment: awaiting medication from pharmacy) traZODone (Desyrel) tablet 100 mg 100 mg, Oral, NIGHTLY, First dose (after last reorder) on 06/07/21 at 2114, Until Discontinued, Routine 2099 (Given - Provider: Olive Anne RN) 2099 (Given - Provider: Colette Medina RN) 0853 ([employer] [facility] Hold - Provider: Admin Adt - Reason: Transfer to a Procedural area)0929 ([employer] [facility] [employer] Unhold - Provider: Admin Adt) Continuous Medication [...] Routine documented in this encounter Care Teams Assembly Machine Offbearer Relationship Specialty Start Date End Date Polo Pearce PA [address] [place] [address] PCP - General Internal Medicine 06/09/21 documented as of this encounter
--- OUTSIDE RECORDS SUMMARY | 2024-01-24 12:39 | XMS_ITS | Encounter Summary ---
Author Organization [facility] [place] [address] Care Team Providers Care Director Of Spa And Guest Experience Name Role Phone Tim Rogers DNP Primary Care Provider [phone] Encounter Details Date Type Department Care Team (Late st Contact Info) Description 10/21/2020 [place] [address] Beto Miller MD [facility] [place] [address] Social History Tobacco Use Types Packs/Day Years [...] 1: 79, normal SSA, SSB, Alcantar antibody, DERMATOLOGIST MANAGING PARTNER antibody, ANCA, MPO antibody, [place]-3 antibody, serum RITCHIE, CBC, BMP and CRP [...] Question: Where will study be performed? Answer: [facility] Order Specific Question: Apply for 7 or 14 days? Answer: 14 Beto Miller MD documented in this encounter Plan of Treatment Upcoming Encounters Date Type Department Care Team (Late st Contact Info) Description 02/10/2024 1:00 PM EST Office Visit Cardiology at [address] [address] Jaspreet Kinsey MD [facility] [place] [address] documented as of this encounter Visit Diagnoses Diagnosis Palpitations documented in this encounter Care Teams Director Of Spa And Guest Experience Relationship Specialty Start Date End Date Tim Rogers DNP PCP - General Family Medicine 08/28/19 06/08/21 documented as of this encounter
--- OUTSIDE RECORDS SUMMARY | 2024-01-24 12:39 | XMS_ITS | Encounter Summary ---
Author Organization [facility] [place] [address] Care Team Providers Care Appointment Scheduler Name Role Phone Tim Rogers DNP Primary Care Provider [phone] Encounter Details Date Type Department Care Team (Latest Contact Info) Description 05/30/2021 9:30 AM EDT TH Visit (TeleHealth) [place] [phone] Beto Miller MD [facility] [place] [address] Pleurisy with effusion; *History of COVID-19; Chronic [...] 05/30/21 PCP: Polo Pearce and Tim Rogers, MOBILE UI DESIGNER [address] [place] [address] Pulmonary Background: ?? Cough, dyspnea, wheeze and [...] 1: 79, normal SSA, SSB, Alcantar antibody, MANAGER PRIVACY antibody, ANCA, MPO antibody, [place]-3 antibody, serum [...] I reviewed the chest x-ray done at [place] at the time which showed bilateral hazy opacities (mild). Debbie was not hospitalized for Covid and seemed to make a short-term recovery but by late April was again struggling. She describes increased cough and dyspnea and went to the emergency room at [place] May 02. I do not have that [...] the May 27 CT chest images from [facility] and her April chest x-ray images ??? Once I have reviewed these I will contact the patient and potentially involve local call center support consultant, Ryanne Wilson, who I do not think is ever seen the patient but may be a useful local resourcegiven Indira's complicated history Outpatient Established Visits Time MDM 20050 10-19 Straightforward 60292 20-29 X Low 04508 30-39 Moderate 87703 40-54 High 24264 + 15 mins Beto Miller MD documented in this encounter Plan of Treatment Upcoming Encounters Date Type Department Care Team (Late st Contact Info) Description 02/10/2024 1:00 PM EST Office Visit Cardiology at [address] [place] [phone] Jaspreet Kinsey MD [facility] [place] [address] documented as of this encounter Visit Diagnoses Diagnosis Pleurisy with effusion Unspecified pleural effusion History of COVID-19 Chronic cough Cough RAVI (dyspnea on exertion) Other dyspnea and respiratory abnormality documented in this encounter Care Teams Appointment Scheduler Relationship Specialty Start Date End Date Tim Rogers DNP PCP - General Family Medicine 08/28/19 06/08/21 documented as of this encounter
--- OUTSIDE RECORDS SUMMARY | 2024-01-24 12:39 | XMS_ITS | Encounter Summary ---
[place] [address] Care Team Providers Care Medical Collections Representative Name Role Phone Polo Pearce Primary Care Provider Reason for Referral * Diagnostic Test (Routine) - Closed Specialty Diagnoses / Procedures Referred By Contac t Referred To Contact Cardiology Diagnoses Elevated blood pressure reading without diagnosis of hypertension Procedures Ziopatch 48 Hrs-15 Days Deja Zaidi PA [address] [place] [address] [facility] [place] [address] Referral ID Status Reason Start Date Expiration Date V isits Requested Visits Authorized [id number] Closed Specialty Service Requested 06/09/2021 12/09/2021 1 1 Reason for Visit * Diagnostic Test (Routine) - Closed Specialty Diagnoses / Procedures Referred By Contac t Referred To Contact Cardiology Diagnoses Elevated blood pressure reading without diagnosis of hypertension Procedures Ziopatch 48 Hrs-15 Days Deja Zaidi PA [address] [place] [address] [facility] [place] [address] Referral ID Status Reason Start Date Expiration Date V isits Requested Visits Authorized [id number] Closed Specialty Service Requested 06/09/2021 12/09/2021 1 1 Encounter Details Date Type Department Care Team (Latest Contact Info) Description 06/09/2021 3:00 PM EDT - 06/09/2021 11:59 PM EDT Hospital Encounter Non-Invasive [place] [address] Elevated blood pressure reading without diagnosis of [...] as needed. fluticasone propionate (FLONASE) 50 mcg/actuation [place], Suspension 1 spray by Each Nare route [...] PM EST Office Visit Cardiology at [address] [place] [address] Jaspreet Kinsey MD [facility] [place] [address] documented as of this encounter Procedures Procedure Name Priority Date/Time Associated Diagnosis Comments ZIOPATCH 48 HRS-15 DAYS Routine 06/09/2021 3:48 PM EDT Elevated blood pressure reading without diagnosis of hypertension documented in this encounter Results * Ziopatch 48 Hrs-15 Days (06/09/2021 3:48 PM EDT) Anatomical Region Laterality Modality Other Narrative 07/01/2021 9:29 AM EDT [facility] ? Zio Patch? Ambulatory Cardiac [...] atrial premature beat conducted with a prolonged DE interval, strongly suggestive of atrioventricular makayla reentrant [...] as described ?? Kurt Larose MD, PhD, [facility] Cardiac Electrophysiology Mario Hallman MD CARDIAC SERVICES ORD ERABLES documented in this encounter Visit Diagnoses Diagnosis Elevated blood pressure reading without diagnosis of hypertension documented in this encounter Care Teams Medical Collections Representative Relationship Specialty Start Date End Date Polo Pearce PA [address] [place] [address] PCP - General Internal Medicine 06/09/21 documented as of this encounter
--- OUTSIDE RECORDS SUMMARY | 2024-01-24 12:39 | XMS_ITS | Encounter Summary ---
[place] [address] Care Team Providers Care Supervisor Operations Name Role Phone Tim Rogers DNP Primary Care Provider [phone] Reason for Visit * Reason Onset Date Comments Other 10/18/2020 Pt requesting ca ll back from MD Encounter Details Date Type Department Care Team (Late st Contact Info) Description 10/18/2020 Telephone [place] [phone] Olive oGnzales RN Other (Pt requesting call back from [...] Gonzales RN Department of Pulmonary 5C, [facility] / Pager: [phone] documented in this encounter Plan of Treatment Upcoming Encounters Date Type Department Care Team (Late st Contact Info) Description 02/10/2024 1:00 PM EST Office Visit Cardiology at [address] [place] [phone] Jaspreet Kinsey MD [facility] [place] [address] documented as of this encounter Visit Diagnoses Not on filedocumented in this encounter Care Teams Supervisor Operations Relationship Specialty Start Date End Date Tim Rogers DNP PCP - General Family Medicine 08/28/19 06/08/21 documented as of this encounter
--- OUTSIDE RECORDS SUMMARY | 2024-01-24 12:40 | XMS_ITS | Encounter Summary ---
[place] [address] Care Team Providers Care Flyer Builder Name Role Phone Tim Rogers DNP Primary Care Provider [phone] Encounter Details Date Type Department Care Team (Latest Contact Info) Description 08/01/2020 11:42 AM EDT - 08/01/2020 11:59 PM EDT Hospital En[place] [phone] Dyspnea, unspecified type Discharge Disposition: Home Social [...] as needed. fluticasone propionate (FLONASE) 50 mcg/actuation [place], Suspension 1 spray by Each Nare route [...] PM EST Office Visit Cardiology at [address] [place] [address] Jaspreet Kinsey MD [facility] [place] [address] documented as of this encounter Procedures Procedure [...] / FVC LLN 69 % COMPAS PFT VRY18-61 Actual Pre-BD 3.14 L/s COMPAS PFT YUG82-73 Pre-BD % of Predicted 116 % COMPAS PFT BSO31-53 Predicted 2.70 L/s COMPAS PFT GTM73-69 Pre-BD Z-Score 0.51 COMPAS PFT FVC Actual [...] PFT FEV1/FVC Post-BD Z-Score 1.94 COMPAS PFT KAI75-21 Actual Post-BD 4.26 L/s COMPAS PFT XST57-83 Post-BD % of Predicted 158 % COMPAS PFT QSF18-06 Post-BD Z-Score 1.67 COMPAS PFT DLCO Hb [...] type documented in this encounter Care Teams Flyer Builder Relationship Specialty Start Date End Date Tim Rogers DNP PCP - General Family Medicine 08/28/19 06/08/21 documented as of this encounter
--- OUTSIDE RECORDS SUMMARY | 2024-01-24 12:40 | XMS_ITS | Encounter Summary ---
Author Organization [facility] [place] [address] Care Team Providers Care Licensed Architect Name Role Phone Tim Rogers DNP Primary Care Provider [phone] Encounter Details Date Type Department Care Team (Late st Contact Info) Description 08/28/2019 [place] [address] Kia Angelo MD [facility] [place] [address] Social History Tobacco Use Types Packs/Day Years [...] Dr. Pooja Iyer, Dr. Weathers Patient Location: [facility] ED Reason for call: transfer [...] can keep and manage patient in the [facility] ED overnight pending bed availability [...] PM EST Office Visit Cardiology at [address] [place] [address] Jaspreet Kinsey MD [facility] [place] [address] documented as of this encounter Visit Diagnoses Not on filedocumented in this encounter Care Teams Licensed Architect Relationship Specialty Start Date End Date Tim Rogers DNP PCP - General Family Medicine 08/28/19 06/08/21 documented as of this encounter
--- OUTSIDE RECORDS SUMMARY | 2024-01-24 12:40 | XMS_ITS | Encounter Summary ---
Author Organization [facility] [place] [address] Care Team Providers Care Ethics Officer Name Role Phone Tim Rogers DNP Primary Care Provider Encounter Details Date Type Department Care Team (Late st Contact Info) Description 08/28/2019 12:05 AM EDT Ancillary Procedure Radiology Library at [facility] [place] [address] Veronica Bello, [address] [place] [address] Social History Tobacco Use Types Packs/Day Years [...] PM EST Office Visit Cardiology at [address] [place] [phone] Jaspreet Kinsey MD [facility] [place] [address] documented as of this encounter Procedures Procedure Name Priority Date/Time Associated Diagnosis Comments FILM LIBRARY STORAGE ONLY CT CHEST Routine 08/28/2019 12:05 AM EDT documented in this encounter Results * Film Library- Storage Only CT Chest (08/28/2019 12:05 AM EDT) Narrative [facility] - 08/29/2019 1:46 PM EDT This exam is auto-finalizing. It's purpose is for storage only. Veronica Bello APRN IMG FILM LIBRARY ORD ERABLES Performing Organization Address City/State/[facility] Co de Phone Number [place], [place] documented in this encounter Visit Diagnoses Not on filedocumented in this encounter Care Teams Ethics Officer Relationship Specialty Start Date End Date Tim Rogers DNP PCP - General Family Medicine 08/28/19 06/08/21 documented as of this encounter
--- OUTSIDE RECORDS SUMMARY | 2024-01-24 12:40 | XMS_ITS | Encounter Summary ---
Author Organization [facility] [place] [address] Care Team Providers Care Manager Graphic Name Role Phone Tim Rogers DNP Primary Care Provider [phone] Reason for Visit * Reason Comments Referral Dyspnea On Exertion * Consultation (Routine) - Specialty Diagnoses / Procedures Referred By Jayant harris Referred To Contact Pulmonology Diagnoses Other forms of dyspnea Virginia Neal MD [facility] [address] [place] [address] [facility] [address] [place] [phone] Referral ID Status Reason Start Date Expiration Date V isits Requested Visits Authorized [id number] Consult, [facility] PCP Updated and/or Approved 04/05/2020 10/02/2020 6 6 Encounter Details Date Type Department Care Team (Latest Contact Info) Description 08/01/2020 1:00 PM EDT Office [place] [address] Beto Miller MD [facility] [place] [address] Asthma, chronic, moderate persistent, uncomplicated [...] Miller MD - 08/01/2020 1:00 PM EDT [facility] Section of Pulmonary Medicine Outpatient Consultation Date of Encounter: 08/01/2020 Referring Provider: Virginia Neal Md [address] [place] [address] PCP: [address] [place] [address] Reason for Consult: I was asked to [...] unable to breathe and was sent to [facility] for the possibility of non-ST elevation myocardial [...] ONCE ??? fluticasone propionate (FLONASE) 50 mcg/actuation [place], Suspension 1 spray by Each Nare route [...] (H) 08/31/2019 PLATELET 255 08/31/2019 Results for LOIDA ROQUE ( ) as of 08/01/2020 13:09 08/29/2019 [...] do think that asthma is a major jinriksha driver. She has been prescribed Symbicort but [...] MD Pulmonary and Critical Care Medicine Pager #[phone] documented in this encounter Plan of Treatment Upcoming Encounters Date Type Department Care Team (Late st Contact Info) Description 02/10/2024 1:00 PM EST Office Visit Cardiology at [address] [place] [phone] Jaspreet Kinsey MD [facility] [place] [address] documented as of this encounter Visit Diagnoses Diagnosis Asthma, chronic, moderate persistent, uncomplicated documented in this encounter Care Teams Manager Graphic Relationship Specialty Start Date End Date Tim Rogers DNP PCP - General Family Medicine 08/28/19 06/08/21 documented as of this encounter
--- OUTSIDE RECORDS SUMMARY | 2024-01-24 12:40 | XMS_ITS | Encounter Summary ---
Author Organization [facility] [place] [address] Care Team Providers Care Guest Services Associate Name Role Phone Tim Rogers [facility] Primary Care Provider Encounter Details Date Type Department Care Team (Late st Contact Info) Description 08/28/2019 Ancillary Procedure Radiology Library at [facility] [place] [address] Veronica Bello, CLEANER WINDOW [address] [place] [address] Social History Tobacco Use Types Packs/Day Years [...] 1:00 PM EST Office Visit Cardiology at [address] [phone] Jaspreet Kinsey MD [facility] [place] [address] documented as of this encounter Procedures Procedure Name Priority Date/Time Associated Diagnosis Comments FILM LIBRARY STORAGE ONLY DX CHEST Routine 08/28/2019 12:00 AM EDT documented in this encounter Results * Film Library- Storage Only DX Chest (08/28/2019 12:00 AM EDT) Narrative [facility] - 08/29/2019 1:45 PM EDT This exam is auto-finalizing. It's purpose is for storage only. Veronica Bello CLEANER WINDOW IMG FILM LIBRARY ORD ERABLES Performing Organization Address City/State/[facility] Co de Phone Number [place], [place] documented in this encounter Visit Diagnoses Not on filedocumented in this encounter Care Teams Guest Services Associate Relationship Specialty Start Date End Date Tim Rogers DNP PCP - General Family Medicine 08/28/19 06/08/21 documented as of this encounter
--- OUTSIDE RECORDS SUMMARY | 2024-01-24 12:40 | XMS_ITS | Encounter Summary ---
Author Organization [facility] [place] [address] Care Team Providers Care Food Production Associate Name Role Phone Tim Rogers DNP Primary Care Provider [phone] Encounter Details Date Type Department Care Team (Late st Contact Info) Description 07/12/2020 Telephone [place] [phone] Jo Ann Colon Social History Tobacco Use [...] PM EST Office Visit Cardiology at [address] [address] Jaspreet Kinsey MD [facility] [place] [address] documented as of this encounter Visit Diagnoses Not on filedocumented in this encounter Care Teams Food Production Associate Relationship Specialty Start Date End Date Tim Rogers DNP PCP - General Family Medicine 08/28/19 06/08/21 documented as of this encounter
--- OUTSIDE RECORDS SUMMARY | 2024-01-24 12:40 | XMS_ITS | Encounter Summary ---
Author Organization [facility] [address] Care Team Providers Care Supervisor Mill Name Role Phone Tim Rogers DNP Primary Care Provider Encounter Details Date Type Department Care Team (Late st Contact Info) Description 04/26/2020 Orders [place] [address] Bull Fitzgerald MD [facility] [place] [address] Dyspnea, unspecified type (Primary Dx) Social History [...] PM EST Office Visit Cardiology at [address] [phone] Jaspreet Kinsey MD [facility] [place] [address] documented as of this encounter Results * [...] / FVC LLN 69 % COMPAS PFT VHX15-05 Actual Pre-BD 3.14 L/s COMPAS PFT GLZ36-19 Pre-BD % of Predicted 116 % COMPAS PFT NLH84-66 Predicted 2.70 L/s COMPAS PFT UUY39-93 Pre-BD Z-Score 0.51 COMPAS PFT FVC Actual [...] PFT FEV1/FVC Post-BD Z-Score 1.94 COMPAS PFT FWV05-74 Actual Post-BD 4.26 L/s COMPAS PFT RWD64-42 Post-BD % of Predicted 158 % COMPAS PFT IYM63-37 Post-BD Z-Score 1.67 COMPAS PFT DLCO Hb [...] type documented in this encounter Care Teams Supervisor Mill Relationship Specialty Start Date End Date Tim Rogers DNP PCP - General Family Medicine 08/28/19 06/08/21 documented as of this encounter
--- OUTSIDE RECORDS SUMMARY | 2024-01-24 12:40 | XMS_ITS | Encounter Summary ---
Author Organization [facility] [place] [address] Care Team Providers Care Master Glazier Name Role Phone Dustin Romero MD Primary Care Provider [phone] Reason for Visit * Reason Comments Allergic Rhinitis Encounter Details Date Type Department Care Team (Late st Contact Info) Description 06/26/2010 9:15 AM EDT Office [place] [address] Lashonda [place] MD [facility] [place] [address] Asthma (Primary Dx); Rhinitis; Rhinitis, nonallergic, chronic [...] pollen: Axel Tree pollen: Birch, Shay, Maple, [place], Beech, [place] pollen: [place]'s Qu[place], Short Ragweed, Pigweed, Molds: [...] PM EST Office Visit Cardiology at [address] [phone] Jaspreet Kinsey MD [facility] [place] [address] Scheduled Orders Name Type Priority Associated Diagnoses Orde r Schedule Spirometry without bronchodilator PFT Routine Asthma Ordered: 06/26/2010 documented as of this encounter Visit Diagnoses Diagnosis Asthma- Primary Unspecified asthma Rhinitis Chronic rhinitis Rhinitis, nonallergic, chronic Chronic rhinitis documented in this encounter Care Teams Master Glazier Relationship Specialty Start Date End Date Dustin Romero MD [facility] [address] [place] [address] PCP - General 06/11/10 08/27/19 documented as of this encounter
--- OUTSIDE RECORDS SUMMARY | 2024-01-24 12:40 | XMS_ITS | Encounter Summary ---
Author Organization [facility] [place] [address] Care Team Providers Care Dental Resident Name Role Phone Tim Rogers DNP Primary Care Provider [phone] Reason for Visit * - Closed Specialty Diagnoses / Procedures Referred By Jayant t Referred To Contact Procedures Film Library- Storage Only CT Chest Tim Rogers DNP [address] [place] [address] Referral ID Status Reason Start Date Expiration Date Visits Re quested Visits Authorized [id number] Closed 08/02/2020 08/02/2021 1 1 Encounter Details Date Type Department Care Team ([facility] Contact Info) Description 04/26/2020 Ancillary Procedure Radiology Library at [facility] [place] [address] Tim Rogers DNP [address] [employer] [place], [place] [address] Social History Tobacco Use Types Packs/Day Years [...] PM EST Office Visit Cardiology at [address] [place] [phone] Jaspreet Kinsey MD [facility] [place] [address] documented as of this encounter Procedures Procedure Name Priority Date/Time Associated Diagnosis Comments FILM LIBRARY STORAGE ONLY CT CHEST Routine 04/26/2020 12:00 AM EST documented in this encounter Results * Film Library- Storage Only CT Chest (04/26/2020 12:00 AM EST) Narrative [facility] - 08/02/2020 9:42 AM EDT This exam is auto-finalizing. It's purpose is for storage only. Tim Rogers DNP [facility] FILM LIBRARY OR DERABLES Performing Organization Address City/State/[facility] Co de Phone Number [place], [place] documented in this encounter Visit Diagnoses Not on filedocumented in this encounter Care Teams Dental Resident Relationship Specialty Start Date End Date Tim Rogers DNP PCP - General Family Medicine 08/28/19 06/08/21 documented as of this encounter
--- OUTSIDE RECORDS SUMMARY | 2024-01-24 12:40 | XMS_ITS | Encounter Summary ---
[place] [address] Care Team Providers Care Glass Vial Bending Conveyor Feeder Name Role Phone Dustin Nino MD Primary Care Provider [phone] Encounter Details Date Type Department Care Team (Late st Contact Info) Description 06/17/2010 Abstract [place] [address] Lashonda [place] MD [facility] [place] [address] Social History Tobacco Use Types Packs/Day Years [...] 1:00 PM EST Office Visit Cardiology at [address] [place] [address] Jaspreet Kinsey MD [facility] [place] [address] documented as of this encounter Visit Diagnoses Not on filedocumented in this encounter Care Teams Glass Vial Bending Conveyor Feeder Relationship Specialty Start Date End Date Dustin Nino MD [facility] [address] [place] [address] PCP - General 06/11/10 08/27/19 documented as of this encounter
--- OUTSIDE RECORDS SUMMARY | 2024-01-24 12:40 | XMS_ITS | Encounter Summary ---
Author Organization [facility] [address] Care Team Providers Care Cloth Measurer Machine Name Role Phone Tim Rogers DNP Primary Care Provider [phone] Encounter Details Date Type Department Care Team (Late st Contact Info) Description 08/02/2020 Telephone [place] [address] Olive Frazier Social History Tobacco Use Types [...] PM EST Office Visit Cardiology at [address] [place] [address] Jaspreet Kinsey MD [facility] [place] [address] documented as of this encounter Visit Diagnoses Not on filedocumented in this encounter Care Teams Cloth Measurer Machine Relationship Specialty Start Date End Date Tim Rogers DNP PCP - General Family Medicine 08/28/19 06/08/21 documented as of this encounter
--- OUTSIDE RECORDS SUMMARY | 2024-01-24 12:40 | XMS_ITS | Encounter Summary ---
[place] [address] Care Team Providers Care Sleeve Fixer Name Role Phone Tim Rogers DNP Primary Care Provider Reason for Visit * Auth/Cert Specialty Diagnoses / Procedures Referred By Contac t Referred To Contact Diagnoses NSTEMI (non-ST elevated myocardial infarction) NSTEMI Procedures EMERGNECY IPI Referral ID Status Reason Start Date Expiration Date Visits Re quested Visits Authorized [id number] 1 1 Encounter Details Date Type Department Care Team (Latest Contact Info) Description 08/29/2019 2:38 PM EDT - 08/31/2019 6:24 PM EDT Hospital Encounter Inter[place] [id number] Manish Benitez MD [facility] [place] [address] Non-ST elevation myocardial infarction (NSTEMI); SOB (shortness [...] this encounter Discharge Summaries * Natalia Urbina, CARD TABLE ATTENDANT - 08/30/2019 5:18 PM EDT Images from the original note were not included. Discharge Summary Patient Name: Loida Roque Patient Age: 49 y.o. Language: Lao Race: White Ethnicity: Not nor Admit date: [...] When interviewed, she identified a long h/o RVAI. ~3 weeks ago, she was up all [...] 50 mg daily Hospital Course: #NSTEMI Loida oRque is a 49 y.o. female with a 2 month h/o progressive dyspnea on exertion with chest tightness that resolves with rest, in addition, an episode of severe chest pain overnight ~3 weeksago concerning for missed ME. ??In the ED, her EKG was abnormal [...] follow-up visit please call one of the sales promotion director on Wednesday-Wednesday between the hours of 8A- 5PM. Cardiology Clinic number @ [phone] If off hours contact the cardiac fellow on- call. Hospital Mat Linker can help you. Hospital phone number [phone] Return to work: In 1 week Drivin hours post catheterization Follow up Appointments: Doctor Where Phone # Date Time Bouchra Frias APRN [address] / [facility] [address] 09/13/19 8:30 Discharge References/Attachments None Discussed with MD Natalia Lira APRN Pager [phone] 08/31/2019 documented in this encounter Discharge Instructions * Discharge Instructions* Natalia Urbina APRN - 08/31/2019 3:54 PM EDT Call your doctor if: Chest pain, dyspnea, pain or swelling in legs occurs. If you have non-emergent questions, prior to your follow-up visit please call one of the sales promotion director on Wednesday-Wednesday between the hours of 8A- 5PM. Cardiology Clinic number @ [phone] If off hours contact the cardiac fellow on- call. Hospital Mat Linker can help you. [facility] phone number [phone] Return to work: In 1 week Drivin hours post catheterization Follow up Appointments: Doctor Where Phone # Date Time Bouchra Frias APRN [address] / [facility] [address] 09/13/19 8:30 * Attachments The following attachments cannot be sent through Care Everywhere. * Cardiac Catheterization: Left (Lao) documented in this encounter Medications at Time of Discharge Medication Sig Dispensed Refills Start Date End Date fluticasone propionate (FLONASE) 50 mcg/actuation [place], Suspension 1 spray by Each Nare route [...] Spirometry Patient Loida Roque 49 y.o. 1970 [id number] Spirometry Spirometry performed successfully. Waiting for read [...] Pt wheeled out of the unit with ASSEMBLY MACHINE TOOL SETTER. * Leonardo Jolly - 08/31/2019 12:25 PM EDT Nutrition Services Note - Low Nutrition Acuity Loida Roque is a 49 y.o. female Reason for intervention: education [facility] + NA Nutrition Plan: Patient states that [...] ([facility]-Diet) Frequency: Effective Now Number of Occurrences: Until [...] hospital course unless consulted in the interim. Beverleyameya Jolly Pager: [phone] * Manish Benitez MD - 08/31/2019 9:33 AM EDT Images from the original note were not included. Inpatient Cardiology Progress Note Patient Name: Loida Roque Service: CRANKSHAFT STRAIGHTENER / PA Responsible Attending: Manish Benitez MD [...] vitals reviewed. Lab Comments: Recent Labs 08/31/19 04108/30/1925208/29/192029 WBC 6.0 7.4 6.3 HGB 15.7* 14.8 [...] MAGNESIUM 0.92 0.90 -- Recent Labs 08/30/19 02508/29/19202908/29/19 1510 [...] See remainder of report for additional findings. [facility] 08/29 Preliminary findings: Right dominant Normal [...] overnight ~3 weeks ago concerning for missed ME. ??In the ED, her EKG was abnormal with diffuse STTW abnormalities but unchanged from prior EKG in 200 7.?Troponin??I??positive at 0.25 (ULN 0.06). ??Vitals stable and patient asymptomatic at rest. ??DDimer positive at 1037 thus??CT-PE protocol??completed. ??No PE or acute aortic pathology. ??She is transferred for further work up of NSTEMI. ??EF 62% and no wall motions seen on echo. [facility] with normal cors and LVEDP 15. [...] Echo with EF 62% and no WMA [facility] with normal cors A1C 5.4% Bedside PFTs today ?? FULL CODE Discussed with Manish Benitez MD Natalia Urbina, CARD TABLE ATTENDANT Pager [phone] 08/31/2019 Cardiology Attending Note I interviewed and examined the patient during comprehensive bedside rounds. I concur with the summary of interval events, active hospital-focused problem list and plan of care as described in the note below. I personally reviewed the medications, laboratory results, treatment decisions and updated the patient. Manish Benitez MD, FACP, FAC Section of Cardiovascular Medicine [facility] [employer] Mold Assembler And Curergeneration manager [facility] This patient meets or has met medical [...] Progress Note Patient Name: Loida Roque Service: CRANKSHAFT STRAIGHTENER / PA Responsible Attending: Manish Benitez MD [...] 49 BILITOT 0.7 BILIDIR 0.1 Recent Labs 08/30/1925208/29/19 1510 CALCIUM 9.0 9.2 MAGNESIUM 0.90 -- [...] overnight ~3 weeks ago concerning for missed ME. 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 fluticasone propionate (FLONASE) 50 mcg/actuation [place], Suspension 1 spray by Each Nare route [...] overnight ~3 weeks ago concerning for missed ME. In the ED, her EKG was abnormal with diffuse STTW abnormalities but unchanged from prior EKG in 2006. Troponin I positive at 0.25 (ULN 0.06). Vitals stable and patient asymptomatic at rest. DDimer positive [id number] thus CT-PE protocol completed. No PE or acute aortic pathology. She is transferred for furtherwork up of NSTEMI. Plan Echo and coronary angiography. TREATMENT PLAN: #NSTEMI Admit to cardiology Trend troponin - 1st negative at 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 No housing, transportation, insurance, resources concerns identified at this time. Supports in place to achieve a safe post-hospital transition. No identified barriers to accessing necessary care and/or follow-up after discharge. Plan: Patient to d/c to home when medically ready. seasonal recruiter/Watch And Clock Maker And Repairer will continue to follow patient???s progress and remain available if situation changes for coordination of care, psychosocial support and/or discharge planning. Angela Loving RN * Brief Op Note - eJssee Malone MD - 08/30/2019 2:31 PM EDT Preliminary Cardiac Catheterization Procedure Note: Patient Name: Loida Roque : [id number] MR#: [id number] Case Date: 08/30/2019 Mat Linker: Surgeon(s) and Role: * Jessee Malone MD - Primary * Luis Tatum PA - Fellow Preoperative diagnosis: ?CAD Postoperative diagnosis: * CAD * Procedure(s) performed: [facility] Coronary angio Access: Right radial A [...] for further details. JOCY Montaño 08/30/2019 Pager [phone] * Plan of Care - Efrain Verma [...] PM EST Office Visit Cardiology at [address] [place] [id number] Jaspreet Kinsey MD [facility] [place] [address] documented as of this encounter [...] (FVC >70%) Zoe Morocho MD Natalia Urbina CARD TABLE ATTENDANT PFT ORDERABLES * EKG 12 Lead (08/31/2019 7:05 AM EDT) Ventricular rate 51 BPM MUSE SYSTEM Atrial Rate 51 BPM MUSE SYSTEM P-R Interval 186 ms MUSE SYSTEM QRS Duration 82 ms MUSE SYSTEM Q-T Interval 546 ms MUSE SYSTEM QTC Calculated (Bezet) 503 ms MUSE SYSTEM Calculated P Keene 18 degrees MUSE SYSTEM Calculated R Keene 52 degrees MUSE SYSTEM Calculated T Keene 13 degrees MUSE SYSTEM INTERPRETATION Sinus bradycardia [...] 4:12 AM EDT) Neutrophil % 45.2 % [facility] Neutrophil Absolute 2.73 1.70 - 6.10 x10(3)/[facility] LABORAT[facility] Lymph % 34.8 % [facility] Lymphocytes Abs 2.1 0.9 - 3.2 x10(3)/[facility] LABOR[facility]ORY Monocyte % 10.1 % [facility] Monocyte Abs 0.6 0.3 - 0.9 x10(3)/[facility] Eos % 8.9 % [facility] Eosinophils Abs 0.5(H) 0.0 - 0.4 x10(3)/[facility] Basophil % 0.8 % [facility] Baso Absolute 0.0 0.0 - 0.1 x10(3)/[facility] LABOR[facility] Immature Gran % 0.20 % [facility] Comment: Immature granulocytes(IG's)percentage and absolute count will include metamyelocytes, myelocytes, and promyelocytes. Blood smears from CBCs yielding IG's will be scanned manually for concordance. If this scan disagrees with the automated IG or if promyelocytes are noted, a manual differential will be performed. Immature Gran Absolute 0.01 0.00 - 0.04 x10(3)/[facility] LABOR[facility] Blood specimen (specimen) 08/31/2019 4:12 AM EDT 08/31/2019 4:29 AM EDT Narrative Resulting Agency Comment Spec In Lab [place] SANDRA HEMATOLOGY ORDERABLE S [facility] [place] [address] * (ABNORMAL) Hemogram (08/31/2019 4:12 AM EDT) [facility] White Blood Cell 6.0 4.0 - 9.5 x10(3)/[facility] LABOR[facility] Red Blood Cell 5.08 4.00 - 5.21 x10(6)/mc L [facility] Hemoglobin 15.7(H) 11.7 - 15.5 gm/dL [facility] Hematocrit 47.0(H) 35.7 - 45.8 % [facility] Mean Cell Volume 92.5 82.6 - 94.4 fL [facility] Mean Cell Hemoglobin 30.9 27.1 - 32.0 pg [facility] Mean Cell Hemoglobin Concentration 33.4 31.7 - 35.0 gm/dL [facility] Platelet 255 145 - 357 x10(3)/mc L [facility] [...] L [facility] Blood specimen (specimen) 08/31/2019 4:12 AM EDT 08/31/2019 4:29 AM EDT Narrative Resulting Agency Comment Spec In Lab [place] SANDRA HEMATOLOGY ORDERABLE S Performing Organization Address City/[facility]/ZIP Co de Phone Number [facility] [place] [address] * Magnesium (08/31/2019 4:12 AM EDT) Magnesium 0.92 0.69 - 1.07 mmol/L [facility] Blood specimen (specimen) 08/31/2019 4:12 AM EDT 08/31/2019 4:29 AM EDT Narrative Resulting Agency Comment Spec In Lab Manish Benitez MD CHEMISTRY ORDERABL ES Performing Organization Address City/[facility]/ZIP Co de Phone Number [facility] [place] [address] * (ABNORMAL) BMP w/fasting Glucose (08/31/2019 4:12 AM EDT) [facility] Signature Glucose Fasting 91 65 - 99 mg/dL [facility] [...] of Diabetes Mellitus, Position Statement from the [employer] Diabetes [employer]. ??Diabetes Care, Volume 33, Supplement 1, Mar 2009 Blood Urea Nitrogen 21(H) 8 - 18 mg/dL [facility] Creatinine 0.91 0.70 - 1.20 mg/dL [facility] [...] [facility] Carbon Dioxide 18(L) 22 - 31 mmol/L [facility] Anion Gap 13 5 - 15 mmol/L [facility] Calcium 9.4 8.5 - 10.5 mg/dL [facility] Est Glomerular Filtration Rate 74 >=60 mL/min/1. 73 m?? [facility] Comment: The eGFR was calculated using the CKD-EPI equation. As with all creatinine based estimates of kidney function, eGFR values calculated with the CKD-EPI equation are not accurate in patients with acute kidney failure, extremes of body mass or the acutely ill. http://MediWound/[facility]nkf eGFR 85 >=60 mL/min/1. 73 m?? [facility] Comment: The eGFR was calculated using the CKD-EPI equation. As with all creatinine based estimates of kidney function, eGFR values calculated with the CKD-EPI equation are not accurate in patients with acute kidney failure, extremes of body mass or the acutely ill. http://MediWound/[facility] Blood specimen (specimen) 08/31/2019 4:12 AM EDT 08/31/2019 4:29 AM EDT Narrative Resulting Agency Comment Spec In Lab Manish Benitez MD CHEMISTRY ORDERABL ES Performing Organization Address City/State/[facility] Co de Phone Number [facility] [place] [address] * CARDIAC CATHETERIZATION (08/30/2019 2:40 PM EDT) Anatomical Region Laterality Modality Other Narrative 08/30/2019 2:59 PM EDT ?[facility] ? Cardiac Catheterization/Intervention Report ? Patient Name: Neisha, Loida ? Procedure Date: 08/30/2019 ? A #: [id number] ? Primary Physician: Kira, Jessee T ? Case #: [id number] ? File Name: [id number] ? Catheterization Order Number: [id number] ? [facility] ? Final Report [place], [place] ? Patient Name: ? Loida Neisha ? ID#: ?[id number] ? : ?1970 ? Procedure Date: ? [...] procedure was Urgent. The indication for ?the micro lab analyst visit is ACS less than or equal [...] Procedure Note Jessee Malone MD - 08/30/2019 [facility] Cardiac Catheterization/Intervention Report Patient Name: Loida Roque Procedure Date: 08/30/2019 A #: [id number] Primary Physician: Jessee Malone Case #: [id number] File Name: [id number] Catheterization Order Number: [id number] [facility] FinalReport [employer], [place] Patient Name: Loida Roque ID#:[id number] :1970 Procedure Date: August 30, 2019 Case [...] was designated as ASA Class III. The [facility] clinical frailtyscale is 2: Well. Diagnostic Tests: Prior Coronary Angiography: LV ejection fraction within 6 months is 65%. Medications Prior to Procedure: Aspirin. Indications for Diagnostic Cath: The priority of the diagnostic procedure was Urgent. The indicationfor the micro lab analyst visit is ACS less than or equal [...] ?NEISHA LOIDA ?(Age): 1970(49y) Med Rec#: ? [id number] ?Sex: ?F ? Site Loc: ? [facility] ?Ht / Wt: ??163(cm)/94(kg) Pt. Loc: ?Adult Floor ? BSA: ?1.99 Study Date: ?? 08/30/2019 ?Pt. Type: Inpatient Tape: ? Referring: POOJA IYER J Reading: Jose Chambers ([id number]) Eviscerator: Jaspreet Oneil RDCS Interpreting Fellow: Poncho Yates ([id number]) Diagnosis: *Non-ST elevation (NSTEMI) myocardial infarction (I21.4) [...] Vmax ?0.35 ? m/sec ? MV deceleration [id number] ?msec ? MV A-wave Vmax ?0.25 ? [...] ? Mid-Inferior ?Normal ? Mid-Inferoseptal ?Normal ? [place]-Septal ? Normal ? [place]-Anterior ? Normal ? [place]-Lateral ?Normal ? [place]-Inferior ? Normal ? [place]-Tip ?Normal ? This report has been electronically signed by: Jose Chambers MD ? 08/30/2019 14:21:57 Images reviewed and interpretation verified [facility] Cardiac Ultrasound Laboratory Procedure Note Jose Chambers MD - 08/30/2019 Procedure: Transthoracic Echocardiogram Patient: NEISHA VÁSQUEZ(Age): 1970(49y) Med Rec#: [id number] Sex: F Site Loc: [facility] Ht / Wt: 163(cm)/94(kg) Pt. Loc: Adult Floor BSA: 1.99 Study Date: 08/30/2019 Pt. Type: Inpatient Tape: Referring: POOJA IYER J Reading: Jose Chambers ([id number]) Eviscerator: Jaspreet Oneil RUST Interpreting Fellow: Poncho Yates ([id number]) Diagnosis: *Non-ST elevation (NSTEMI) myocardial infarction (I21.4) [...] MV E-wave Vmax 0.35 m/sec MV deceleration [id number] msec MV A-wave Vmax 0.25 m/sec MV [...] Normal Mid-Posterolateral Normal Mid-Inferior Normal Mid-Inferoseptal Normal [place]-Septal Normal [place]-Anterior Normal [place]-Lateral Normal [place]-Inferior Normal [place]-Tip Normal This report has been electronically signed by: Jose Chambers MD 08/30/2019 14:21:57 Images reviewed and interpretation verified [facility] Cardiac Ultrasound [facility] Manish Benitez MD ECHO ORDERABLES * EKG 12 Lead (08/30/2019 10:28 AM EDT) Ventricular rate 52 BPM MUSE SYSTEM Atrial Rate 52 BPM MUSE SYSTEM P-R Interval 162 ms MUSE SYSTEM QRS Duration 84 ms MUSE SYSTEM Q-T Interval 536 ms MUSE SYSTEM QTC Calculated (Bezet) 498 ms MUSE SYSTEM Calculated P Keene -9 degrees MUSE SYSTEM Calculated R Keene 43 degrees MUSE SYSTEM Calculated T Keene -27 degrees MUSE SYSTEM INTERPRETATION Sinus bradycardia [...] MD HEMATOLOGY ORDERAB LES Performing Organization Address City/State/[facility] Co de Phone Number [facility] [place] [address] * (ABNORMAL) Differential, Automated (08/30/2019 2:53 AM EDT) Neutrophil % 52.4 % [facility] Neutrophil Absolute 3.85 1.70 - 6.10 x10(3)/mc L [facility] Lymph % 29.3 % [facility] Lymphocytes Abs 2.2 0.9 - 3.2 x10(3)/mc L [facility] Monocyte % 9.1 % [facility] Monocyte Abs 0.7 0.3 - 0.9 x10(3)/mc L [facility] Eos % 8.6 % [facility] Eosinophils Abs 0.6(H) 0.0 - 0.4 x10(3)/mc L [facility] Basophil % 0.5 % [facility] Baso Absolute 0.0 0.0 - 0.1 x10(3)/mc L [facility] Immature Gran % 0.10 % [facility] Comment: Immature granulocytes(IG's)percentage and absolute count will include metamyelocytes, myelocytes, and promyelocytes. Blood smears from CBCs yielding IG's will be scanned manually for concordance. If this scan disagrees with the automated IG or if promyelocytes are noted, a manual differential will be performed. Immature Gran Absolute 0.01 0.00 - 0.04 x10(3)/ L [facility] Blood specimen (specimen) 08/30/2019 2:53 AM EDT 08/30/2019 3:01 AM EDT Narrative Resulting Agency Comment Spec In Lab [place] SANDRA HEMATOLOGY ORDERABLE S [facility] [place] [address] * (ABNORMAL) Hemogram (08/30/2019 2:53 AM EDT) White Blood Cell 7.4 4.0 - 9.5 x10(3)/[facility] LABORATORY Red Blood Cell 4.84 4.00 - 5.21 x10(6)/[facility] LABORATORY Hemoglobin 14.8 11.7 - 15.5 gm/dL [facility] Hematocrit 44.8 35.7 - 45.8 % [facility] Mean Cell Volume 92.6 82.6 - 94.4 [facility] LAB[facility]AT[facility] Mean Cell Hemoglobin 30.6 27.1 - 32.0 pg [facility] Mean Cell Hemoglobin Concentration 33.0 31.7 - 35.0 gm/dL [facility] Platelet 272 145 - 357 x10(3)/[facility] LABORATORY RDW Standard Deviation 46.2(H) 37.0 - 46.0 [facility] LAB[facility]ATORY RDW coefficient of variation 13.5 11.5 - 14.1 % [facility] Mean Platelet Volume 10.9 7.6 - 12.9 [facility] LABORATORY NRBC% auto 0.0 % [facility] NRBC Absolute 0.000 0.000 - 0.000 x10(3)/ L [facility] Blood specimen (specimen) 08/30/2019 2:53 AM EDT 08/30/2019 3:01 AM EDT Narrative Resulting Agency Comment Spec In Lab [place] SANDRA HEMATOLOGY ORDERABLE S Performing Organization Address [facility] Co de Phone Number [facility] [place] [address] * Magnesium (08/30/2019 2:53 AM EDT) Magnesium 0.90 0.69 - 1.07 mmol/L [facility] Blood specimen (specimen) 08/30/2019 2:53 AM EDT 08/30/2019 3:01 AM EDT Narrative Resulting Agency Comment Spec In Lab Manish Benitez MD CHEMISTRY ORDERABL ES Performing Organization Address [facility] de Phone Number [facility] [place] [address] * (ABNORMAL) BMP w/fasting Glucose (08/30/2019 2:53 AM EDT) Glucose Fasting 102(H) 65 - 99 mg/dL [facility] [...] of Diabetes Mellitus, Position Statement from the [employer] Diabetes [employer]. ??Diabetes Care, Volume 33, Supplement 1, Mar 2009 Blood Urea Nitrogen 18 8 - 18 mg/dL [facility] Creatinine 1.09 0.70 - 1.20 mg/dL [facility] [...] m?? [facility] Comment: The eGFR was calculated using the CKD-EPI equation. As with all creatinine based estimates of kidney function, eGFR values calculated with the CKD-EPI equation are not accurate in patients with acute kidney failure, extremes of body mass or the acutely ill. http://MediWound/[facility] eGFR 69 >=60 mL/min/1. 73 m?? [facility] Comment: The eGFR was calculated using the CKD-EPI equation. As with all creatinine based estimates of kidney function, eGFR values calculated with the CKD-EPI equation are not accurate in patients with acute kidney failure, extremes of body mass or the acutely ill. http://MediWound/[facility] Blood specimen (specimen) 08/30/2019 2:53 AM EDT 08/30/2019 3:01 AM EDT Narrative Resulting Agency Comment Spec In Lab Manish Benitez MD CHEMISTRY ORDERABL ES [facility] [place] [address] * Triglyceride (08/30/2019 2:53 AM EDT) Triglyceride 203 mg/dL [facility] Comment: Average Risk/Lower Risk: <150 mg/dL Borderline High Risk: 150-199 mg/dL High Risk: 200-499 mg/dL Very High Risk: >nx=562 mg/dL Blood specimen (specimen) 08/30/2019 2:53 AM EDT 08/30/2019 3:01 AM EDT Narrative Resulting Agency Comment Spec In Lab Manish Benitez MD CHEMISTRY ORDERABL ES [facility] [place] [address] * HDL/Cholesterol Profile (08/30/2019 2:53 AM EDT) Cholesterol, Total 220 mg/dL [facility] Comment: Lower Risk: <200 mg/dL Average Risk: 200-239 mg/dL Higher Risk: >at=964 mg/dL HDL Cholesterol 34 mg/dL [facility] Comment: Males: ?? Higher Risk: <40 mg/dL Females: ?? HIgher Risk: <50 mg/dL Cholesterol/HDL Ratio 6.5 ratio [facility] Chol/HDL Interpretation See Note [facility] Comment: Lipid management should be guided by a patient? s ASCVD risk, goals and preferences. ACC/AHA Guidelines recommend high intensity statin if clinical ASCVD or LDL greater than or equal to 190 mg/dL. http://Orexo.com/DIQ-QIA-Fkvzknenk Measure LDL if Total Cholesterol minus HDL Cholesterol is greater than 220 mg/dL. Adults aged 40-75 with LDL 70-189 mg/dL should have their 10 year ASCVD risk estimated with the ACC/AHA ASCVD risk media operator http://tools.acc.org/KNXVX-Dyqb-Dqnfwwnxw/ Statin should be discussed if risk greater [...] Address [facility] de Phone Number [facility] [place] [place] [address] * LDL Cholesterol, Direct (08/30/2019 2:53 AM EDT) Pathologist [facility] LDL Cholesterol, Direct 165 mg/dL [facility] Comment: Lowest Risk: <100 mg/dL Lower Risk: 100-129 mg/dL Borderline High Risk: 130-159 mg/dL High Risk: 160-189 mg/dL Very High Risk: >wu=765 mg/dL Blood specimen (specimen) 08/30/2019 2:53 AM EDT 08/30/2019 3:01 AM EDT Narrative Resulting Agency Comment Spec In Lab Manish Benitez MD CHEMISTRY ORDERABL ES Performing Organization Address [facility] de Phone Number [facility] [place] [address] * Hemoglobin A1c (08/30/2019 2:53 AM EDT) Pathologist [facility] Hemoglobin A1c 5.4 4.3 - 5.6 % [facility] Comment: Reference Range: [...] Mellitus, Diabetes Care 2013; 36: Suppl. 1, D87-21 Estimated Average Glucose 108 mg/dL [facility] Comment: [...] into estimated average glucose values. ??Diabetes Care 2008:31(8):8754-2634. Blood specimen (specimen) 08/30/2019 2:53 AM EDT 08/30/2019 3:01 AM EDT Narrative Resulting Agency Comment Spec In Lab Manish Benitez MD CHEMISTRY ORDERABL ES Performing Organization Address [facility] de Phone Number [facility] [place] [phone] * CK (08/30/2019 2:53 AM EDT) Creatine Kinase 82 0 - 160 unit/L [facility] Blood specimen (specimen) 08/30/2019 2:53 AM EDT 08/30/2019 3:01 AM EDT Narrative Resulting Agency Comment Spec In Lab Manish Benitez MD CHEMISTRY ORDERABL ES Performing Organization Address [facility] de Phone Number [facility] [place] [phone] * Troponin (08/30/2019 2:53 AM EDT) Troponin-T <0.01 0.00 - 0.00 ng/mL [facility] Comment: The 99th percentile for Troponin T is less than 0.01 ng/mL, any detectable cTnT concentration using this assay should be considered elevated. According to the third universal definition of myocardial infarction the following criteria with a clinical presentation consistent with acute myocardial ischemia meets the diagnosis for a myocardial infarction (ME). Detection of a rise and/or fall of cTnT, with at least one value greater than the 99th percentile (> or = 0.01) and with at least one of the following ?? Symptoms of ischemia ?? New or presumed new significant JM-rnllesn-M wave (ST-T) changes or new left bundle [...] additional sample may be indicated. Reference: Third [place] Definition of Myocardial Infarction. Journal of the [place] College [employer] Cardiology 2012;60:1581-98 Blood specimen (specimen) 08/30/2019 2:53 AM EDT 08/30/2019 3:01 AM EDT Narrative Resulting Agency Comment Spec In Lab Manish Benitez MD CHEMISTRY ORDERABL ES Performing Organization Address City/State/[facility] Co de Phone Number [facility] [place] [address] * (ABNORMAL) Differential, Automated (08/29/2019 8:30 PM EDT) Neutrophil % 56.5 % [facility] Neutrophil Absolute 3.58 1.70 - 6.10 x10(3)/mc L [facility] Lymph % 25.9 % [facility] Lymphocytes Abs 1.6 0.9 - 3.2 x10(3)/mc L [facility] Monocyte % 8.8 % [facility] Monocyte Abs 0.6 0.3 - 0.9 x10(3)/mc L [facility] Eos % 7.7 % [facility] Eosinophils Abs 0.5(H) 0.0 - 0.4 x10(3)/[facility] Basophil % 0.8 % [facility] Baso Absolute 0.0 0.0 - 0.1 x10(3)/[facility] Immature Gran % 0.30 % [facility] Comment: Immature granulocytes(IG's)percentage and absolute count will include metamyelocytes, myelocytes, and promyelocytes. Blood smears from CBCs yielding IG's will be scanned manually for concordance. If this scan disagrees with the automated IG or if promyelocytes are noted, a manual differential will be performed. Immature Gran Absolute 0.02 0.00 - 0.04 x10(3)/[facility] Blood specimen (specimen) 08/29/2019 8:30 PM EDT 08/29/2019 9:11 PM EDT Narrative Resulting Agency Comment Spec In Lab Abeba SANDRA HEMATOLOGY ORDERABLE S [facility] [place] [address] * (ABNORMAL) Hemogram (08/29/2019 8:30 PM EDT) White Blood Cell 6.3 4.0 - 9.5 x10(3)/[facility] Red Blood Cell 5.03 4.00 - 5.21 x10(6)/[facility] Hemoglobin 15.3 11.7 - 15.5 gm/dL [facility] Hematocrit 46.4(H) 35.7 - 45.8 % [facility] Mean Cell Volume 92.2 82.6 - 94.4 fL [facility] Mean Cell Hemoglobin 30.4 27.1 - 32.0 pg [facility] Mean Cell Hemoglobin Concentration 33.0 31.7 - 35.0 gm/dL [facility] Platelet 267 145 - 357 x10(3)/mc L [facility] RDW Standard Deviation 46.4(H) 37.0 - 46.0 fL [facility] RDW coefficient of variation 13.6 11.5 - 14.1 % [facility] Mean Platelet Volume 11.3 7.6 - 12.9 fL [facility] NRBC% auto 0.0 % [facility] NRBC Absolute 0.000 0.000 - 0.000 x10(3)/mc L [facility] Blood specimen (specimen) 08/29/2019 8:30 PM EDT 08/29/2019 9:11 PM EDT Narrative Resulting Agency Comment Spec In Lab Abeba SANDRA HEMATOLOGY ORDERABLE S [facility] [place] [address] * Heparin (unfractionated) Level (08/29/2019 8:30 PM [...] HEMATOLOGY ORDERAB LES Performing Organization Address [facility]/ZIP Co de Phone Number [facility] [place] [address] * CK (08/29/2019 8:30 PM EDT) Creatine Kinase 94 0 - 160 unit/L [facility] Blood specimen (specimen) 08/29/2019 8:30 PM EDT 08/29/2019 9:11 PM EDT Narrative Resulting Agency Comment Spec In Lab Manish Benitez MD CHEMISTRY ORDERABL ES Performing Organization Address [facility] Co de Phone Number [facility] [place] [address] * Troponin (08/29/2019 8:30 PM EDT) Troponin-T <0.01 0.00 - 0.00 ng/mL [facility] Comment: The 99th percentile for Troponin T is less than 0.01 ng/mL, any detectable cTnT concentration using this assay should be considered elevated. According to the third universal definition of myocardial infarction the following criteria with a clinical presentation consistent with acute myocardial ischemia meets the diagnosis for a myocardial infarction (ME). Detection of a rise and/or fall of cTnT, with at least one value greater than the 99th percentile (> or = 0.01) and with at least one of the following ?? Symptoms of ischemia ?? New or presumed new significant NX-cojiddv-K wave (ST-T) changes or new left bundle [...] additional sample may be indicated. Reference: Third [place] Definition of Myocardial Infarction. Journal of the [place] College of Cardiology 2012;60:1581-98 Blood specimen (specimen) 08/29/2019 8:30 PM EDT 08/29/2019 9:11 PM EDT Narrative Resulting Agency Comment Spec In Lab Manish Benitez MD CHEMISTRY ORDERABL ES Performing Organization Address [facility] Co de Phone Number [facility] [place] [address] * EKG 12 Lead (08/29/2019 4:19 PM EDT) Ventricular rate 67 BPM MUSE SYSTEM Atrial Rate 67 BPM MUSE SYSTEM P-R Interval 164 ms MUSE SYSTEM QRS Duration 80 ms MUSE SYSTEM Q-T Interval 478 ms MUSE SYSTEM QTC Calculated (Bezet) 505 ms MUSE SYSTEM Calculated P [place] 34 degrees MUSE SYSTEM Calculated R [place] 30 degrees MUSE SYSTEM Calculated T [place] -29 degrees MUSE SYSTEM INTERPRETATION Demand pacemaker; [...] Benitez MD ECG ORDERABLES Performing Organization Address [facility] Co de Phone Number MUSE SYSTEM * (ABNORMAL) Differential, Automated (08/29/2019 3:10 PM EDT) Neutrophil % 58.3 % [facility] Neutrophil Absolute 3.79 1.70 - 6.10 x10(3)/mc L [facility] Lymph % 22.7 % [facility] Lymphocytes Abs 1.5 0.9 - 3.2 x10(3)/mc L [facility] Monocyte % 10.3 % [facility] Monocyte Abs 0.7 0.3 - 0.9 x10(3)/mc L [facility] Eos % 7.8 % [facility] Eosinophils Abs 0.5(H) 0.0 - 0.4 x10(3)/[facility] Basophil % 0.6 % [facility] Baso Absolute 0.0 0.0 - 0.1 x10(3)/[facility] Immature Gran % 0.30 % [facility] Comment: Immature granulocytes(IG's)percentage and absolute count will include metamyelocytes, myelocytes, and promyelocytes. Blood smears from CBCs yielding IG's will be scanned manually for concordance. If this scan disagrees with the automated IG or if promyelocytes are noted, a manual differential will be performed. Immature Gran Absolute 0.02 0.00 - 0.04 x10(3)/[facility] Blood specimen (specimen) 08/29/2019 3:10 PM EDT 08/29/2019 3:50 PM EDT Narrative Resulting Agency Comment Spec In Lab [place] SANDRA HEMATOLOGY ORDERABLE S [facility] [place] [address] * (ABNORMAL) Hemogram (08/29/2019 3:10 PM EDT) White Blood Cell 6.5 4.0 - 9.5 x10(3)/[facility] Red Blood Cell 4.69 4.00 - 5.21 x10(6)/[facility] Hemoglobin 14.1 11.7 - 15.5 gm/dL [facility] Hematocrit 43.8 35.7 - 45.8 % [facility] Mean Cell Volume 93.4 82.6 - 94.4 fL [facility] Mean Cell Hemoglobin 30.1 27.1 - 32.0 pg [facility] Mean Cell Hemoglobin Concentration 32.2 31.7 - 35.0 gm/dL [facility] Platelet 235 145 - 357 x10(3)/mc L [facility] RDW Standard Deviation 47.2(H) 37.0 - 46.0 fL [facility] RDW coefficient of variation 13.7 11.5 - 14.1 % [facility] Mean Platelet Volume 11.5 7.6 - 12.9 fL [facility] NRBC% auto 0.0 % [facility] NRBC Absolute 0.000 0.000 - 0.000 x10(3)/mc L [facility] Blood specimen (specimen) 08/29/2019 3:10 PM EDT 08/29/2019 3:50 PM EDT Narrative Resulting Agency Comment Spec In Lab [place] SANDRA HEMATOLOGY ORDERABLE S Performing Organization Address [facility] Co de Phone Number [facility] [place] [address] * Hepatic Function Panel (08/29/2019 3:10 PM EDT) Protein, Total 7.1 6.1 - 8.0 gm/dL [facility] Albumin 4.0 3.2 - 5.2 gm/dL [facility] Aspartate Aminotransferase 25 0 - 30 unit/L [facility] Alanine Aminotransferase 19 0 - 30 unit/L [facility] Alkaline Phosphatase 49 35 - 105 unit/L [facility] Bilirubin, Total 0.7 0.2 - 1.3 mg/dL [facility] Bilirubin, Direct 0.1 0.0 - 0.3 mg/dL [facility] Blood specimen (specimen) 08/29/2019 3:10 PM EDT 08/29/2019 3:52 PM EDT Narrative Resulting Agency Comment Spec In Lab Manish Benitez MD CHEMISTRY ORDERABL ES Performing Organization Address [facility]/ZIP Co de Phone Number [facility] [place] [address] * TSH (08/29/2019 3:10 PM EDT) Thyroid Stimulating Hormone 1.87 0.27 - 4.20 mcIU/mL [facility] Blood specimen (specimen) 08/29/2019 3:10 PM EDT 08/29/2019 3:52 PM EDT Narrative Resulting Agency Comment Spec In Lab Manish Benitez MD CHEMISTRY ORDERABL ES Performing Organization Address [facility]/ZIP Co de Phone Number [facility] [place] [address] * (ABNORMAL) pro-Brain Natriuretic Peptide (08/29/2019 3:10 PM EDT) Pathologist [facility] NT-proBNP 1,242(H) <=125 pg/mL [facility] Blood specimen (specimen) 08/29/2019 3:10 PM EDT 08/29/2019 3:52 PM EDT Narrative Resulting Agency Comment Spec In Lab Manish Benitez MD CHEMISTRY ORDERABL ES Performing Organization Address [facility] Co de Phone Number [facility] [place] [address] * CK (08/29/2019 3:10 PM EDT) Creatine Kinase 96 0 - 160 unit/L [facility] Blood specimen (specimen) 08/29/2019 3:10 PM EDT 08/29/2019 3:52 PM EDT Narrative Resulting Agency Comment Spec In Lab Manish Benitez MD CHEMISTRY ORDERABL ES Performing Organization Address [facility] Co de Phone Number [facility] [place] [address] * Troponin (08/29/2019 3:10 PM EDT) Troponin-T <0.01 0.00 - 0.00 ng/mL [facility] Comment: The 99th percentile for Troponin T is less than 0.01 ng/mL, any detectable cTnT concentration using this assay should be considered elevated. According to the third universal definition of myocardial infarction the following criteria with a clinical presentation consistent with acute myocardial ischemia meets the diagnosis for a myocardial infarction (ME). Detection of a rise and/or fall of cTnT, with at least one value greater than the 99th percentile (> or = 0.01) and with at least one of the following ?? Symptoms of ischemia ?? New or presumed new significant UK-ntvlpji-N wave (ST-T) changes or new left bundle [...] additional sample may be indicated. Reference: Third [place] Definition of Myocardial Infarction. Journal of the [place] College of Cardiology 2012;60:1581-98 Blood specimen (specimen) 08/29/2019 3:10 PM EDT 08/29/2019 3:52 PM EDT Narrative Resulting Agency Comment Spec In Lab Manish Benitez MD CHEMISTRY ORDERABL ES [facility] [place] [address] * (ABNORMAL) APTT (08/29/2019 3:10 PM EDT) Partial Thromboplastin Time 132(Criti edy) 25 - 37 sec [facility] Comment: Critical [...] HEMATOLOGY ORDERAB LES Performing Organization Address [facility] Co de Phone Number [facility] [place] [address] * (ABNORMAL) Prothrombin Time (08/29/2019 3:10 PM EDT) Prothrombin Time 13.3(H) 9.4 - 12.5 sec [facility] International Normalization Ratio 1.2 [facility] Comment: An [...] HEMATOLOGY ORDERAB LES Performing Organization Address [facility] Co de Phone Number [facility] [place] [address] * (ABNORMAL) Basic Metabolic Panel (non-fasting) (08/29/2019 3:10 PM EDT) Glucose 83 65 - 199 mg/dL [facility] Comment:Diabetes: >=200 mg/d L plus symptoms Blood Urea Nitrogen 15 8 - 18 mg/dL [facility] Creatinine 0.84 0.70 - 1.20 mg/dL [facility] [...] Filtration Rate 81 >=60 mL/min/1. 73 m?? [facility] Comment: The eGFR was calculated using the CKD-EPI equation. As with all creatinine based estimates of kidney function, eGFR values calculated with the CKD-EPI equation are not accurate in patients with acute kidney failure, extremes of body mass or the acutely ill. http://MediWound/Months Of Menkf eGFR 94 >=60 mL/min/1. 73 m?? [facility] Comment: The eGFR was calculated using the CKD-EPI equation. As with all creatinine based estimates of kidney function, eGFR values calculated with the CKD-EPI equation are not accurate in patients with acute kidney failure, extremes of body mass or the acutely ill. http://MediWound/[facility] ENIDnkf Blood specimen (specimen) 08/29/2019 3:10 PM EDT 08/29/2019 3:52 PM EDT Narrative Resulting Agency Comment Spec In Lab Manish Benitez MD CHEMISTRY ORDERABL ES [facility] [place] [address] documented in this encounter Visit Diagnoses Diagnosis [...] 1439, Until Wed08/29/19 at 1445, Mark Nick: javi pool heparin (Porcine) subcutaneous injection 5,000 Units [...] [facility] - Provider: Admin Adt) atorvastatin (Lipitor) tablet 80 mg (CANCELED) 80 mg, Oral, EVERY EVENING, First dose on Wed08/29/19 at 1715, Until Discontinued, Routine 1701 (Given - Provider: Mark Nick RN) 1357 (MAY Hold - Provider: Admin Adt - Reason: Transfer to a Procedural area)1530 ([facility] Unhold - Provider: Admin Adt) clopidogreL [...] 1800, Routine 172 (Given - Provider: Mark Nick, ERWIN) gabapentin (Neurontin) capsule 300 mg 300 mg, Oral, 2 TIMES DAILY, First dose on Wed08/29/19 at 2100, Until Discontinued, Routine 2047 (Given - Provider: Efrain Verma RN) 0842 (Given - Provider: Mark Nick RN)135 ([facility] Hold - Provider: [...] Procedural area)153 ([facility] Unhold - Provider: Admin Adt)203 (Given - Provider: Gauri Arroyo, ERWIN) topiramate (Topamax) tablet 50 mg 50 mg, Oral, DAILY, First dose on Wed08/30/19 at 0900, Until Discontinued, Routine 0843 (Given - Provider: Mark Nick, ERWIN)1357 ([facility] [...] [facility] Un[facility] - Provider: Admin Adt) perflutren [...] Wed08/31/19 at 2024, Sleep, insomnia, Routine 1357 ([facility] Hold - Provider: Admin Adt - Reason: Transfer to a Procedural area)1530 ([facility] Unhold - Provider: Admin Adt) Linked [...] UA) documented in this encounter Care Teams Sleeve Fixer Relationship Specialty Start Date End Date Tim Rogers DNP PCP - General Family Medicine 08/28/19 06/08/21 documented as of this encounter
--- OUTSIDE RECORDS SUMMARY | 2024-01-24 12:40 | XMS_ITS | Encounter Summary ---
[place] [address] Care Team Providers Care Education Teacher Name Role Phone Tim Rogers DNP Primary Care Provider [phone] Reason for Visit * Reason Onset Date Comments Nasal Congestion 09/02/2020 Cough 09/02/2020 Shortness of Breath 09/02/2020 Anorexia 09/02/2020 Lack of appetite Encounter Details Date Type Department Care Team (Late st Contact Info) Description 09/02/2020 [place] [address] Renetta Graham RN Nasal Congestion; Cough; Shortness [...] with occasional radha annita. Return Contact Number: [facility] - [phone], ask for Mihaela Preferred Pharmacy: [facility]ik Alvarez on file. documented in this encounter Plan of Treatment Upcoming Encounters Date Type Department Care Team (Late st Contact Info) Description 02/10/2024 1:00 PM EST Office Visit Cardiology at [address] [phone] Jaspreet Kinsey MD [facility] [place] [address] documented as of this encounter Visit Diagnoses Not on filedocumented in this encounter Care Teams Education Teacher Relationship Specialty Start Date End Date Tim Rogers DNP PCP - General Family Medicine 08/28/19 06/08/21 documented as of this encounter
--- OUTSIDE RECORDS SUMMARY | 2024-01-24 12:40 | XMS_ITS | Encounter Summary ---
Author [place] [address] Care Team Providers Care Storage Management Consultant Name Role Phone Tim Rogers DNP Primary Care Provider [phone] Reason for Visit * Reason Onset Date Comments Appointment 09/12/2020 Follow up Encounter Details Date Type Department Care Team (Late st Contact Info) Description 09/12/2020 [place] [address] Renetta Graham RN Appointment (Follow up) Social [...] PM EST Office Visit Cardiology at [address] [place] [address] Jaspreet Kinsey MD [facility] [place] [address] documented as of this encounter Visit Diagnoses Not on filedocumented in this encounter Care Teams Storage Management Consultant Relationship Specialty Start Date End Date Tim Rogers DNP PCP - General Family Medicine 08/28/19 06/08/21 documented as of this encounter
--- OUTSIDE RECORDS SUMMARY | 2024-01-24 12:40 | XMS_ITS | Encounter Summary ---
Author Organization [facility] [place] [address] Care Team Providers Care Geriatric Physical Therapist Name Role Phone Tim Rogers DNP Primary Care Provider [phone] Encounter Details Date Type Department Care Team (Late st Contact Info) Description 09/09/2020 [place] [address] Beto Miller MD [facility] [place] [address] Social History Tobacco Use Types Packs/Day Years [...] ?? I reviewed CT scans performed in [facility] in 2019 (w/contrast) and April [...] the 2020 CT given the motion artifacts. Upper Doubler images are below Combination of eosinophilia, adenopathy, [...] Diff) Please fax results to Dr Miller [phone] Standing Status: Future Standing Expiration Date: 03/11/2021 ??? Basic Metabolic Panel (non-fasting) Please fax results to Dr Miller [phone] Standing Status: Future Standing Expiration Date: 03/11/2021 ??? KATHRINE ([facility]/CGP/APD/NLH) Please fax results to Dr Miller [phone] Standing Status: Future Standing Expiration Date: 03/11/2021 ??? Extractable Nuclear Antigen (JENNA) Ab Please fax results to Dr Miller [phone] Standing Status: Future Standing Expiration Date: 03/11/2021 ??? Angiotensin Converting Enzyme Please fax results to Dr Miller [phone] Standing Status: Future Standing Expiration Date: 03/11/2021 ??? CRP, acute inflammation Please fax results to Dr Miller [phone] Standing Status: Future Standing Expiration Date: 03/11/2021 ??? Cytoplasmic Neutrophilic Ab Please fax results to Dr Miller [phone] Standing Status: Future Standing Expiration Date: 09/09/2021 ??? Myeloperoxidase Ab Please fax results to Dr Miller [phone] Standing Status: Future Standing Expiration Date: 09/09/2021 ??? Proteinase-3 Antibody Please fax results to Dr Miller [phone] Standing Status: Future Standing Expiration Date: 09/09/2021 ??? Immunoglobulin E (IgE) Please fax results to Dr Miller [phone] Standing Status: Future Standing Expiration Date: 09/09/2021 ??? Immunoglobulins, Quantitative Standing Status: Future Standing Expiration Date: 09/09/2021 documented in this encounter Plan of Treatment Upcoming Encounters Date Type Department Care Team (Late st Contact Info) Description 02/10/2024 1:00 PM EST Office Visit Cardiology at [address] [place] [address] Jaspreet Kinsey MD [facility] [place] [address] documented as of this encounter Visit Diagnoses Diagnosis Acute recurrent sinusitis, unspecified location RAVI (dyspnea on exertion) Other dyspnea and respiratory abnormality Abnormal CT of the chest Nonspecific (abnormal) findings on radiological and other examination of other intrathoracic organs documented in this encounter Care Teams Geriatric Physical Therapist Relationship Specialty Start Date End Date Tim Rogers DNP PCP - General Family Medicine 08/28/19 06/08/21 documented as of this encounter
--- OUTSIDE RECORDS SUMMARY | 2024-01-24 12:40 | XMS_ITS | Encounter Summary ---
Author Organization [facility] [place] [address] Care Team Providers Care Follow Up Manager Name Role Phone Tim Rogers DNP Primary Care Provider [phone] Encounter Details Date Type Department Care Team (Late st Contact Info) Description 08/28/2019 External Results [place] [address] Social History Tobacco Use Types Packs/Day Years [...] 1:00 PM EST Office Visit Cardiology at [address] [phone] Jaspreet Kinsey MD [facility] [place] [address] documented as of this encounter Procedures Procedure Name Priority Date/Time Associated Diagnosis Comments ECG SCAN Routine 08/28/2019 documented in this encounter Results * Scan Doc: ECG (08/28/2019) Historical Provider MD FLEMING MGR SCAN EX T ORDR/RSLT documented in this encounter Visit Diagnoses Not on filedocumented in this encounter Care Teams Follow Up Manager Relationship Specialty Start Date End Date Tim Rogers DNP PCP - General Family Medicine 08/28/19 06/08/21 documented as of this encounter
--- OUTSIDE RECORDS SUMMARY | 2024-01-24 12:40 | XMS_ITS | Encounter Summary ---
[place] [address] Care Team Providers Care Debt And Budget Counselor Name Role Phone Tim Rogers DNP Primary Care Provider Reason for Visit * Auth/Cert Specialty Diagnoses / Procedures Referred By Jayant harris Referred To Contact Diagnoses NSTEMI (non-ST elevated myocardial infarction) NSTEMI Procedures EMERGNECY IPI Referral ID Status Reason Start Date Expiration Date Visits Re quested Visits Authorized [id number] 1 1 Encounter Details Date Type Department Care Team (Late st Contact Info) Description 08/30/2019 1:00 PM EDT - 08/30/2019 2:00 PM EDT [place] [address] Jessee Malone MD [facility] [address] CARDIAC CATHETERIZATION Social History Tobacco Use Types [...] this encounter Discharge Summaries * Natalia Urbina, YARN PREPARATION SUPERVISOR - 08/30/2019 5:18 PM EDT Images from the original note were not included. Discharge Summary Patient Name: Loida Roque Patient Age: 49 y.o. Language: Welsh Race: White Ethnicity: Not nor Admit date: [...] pain overnight ~3 weeksago concerning for missed IL. ??In the ED, her EKG was abnormal with diffuse STTW abnormalities butunchanged from prior EKG in 2007.?Troponin??I??positive at 0.25 (ULN 0.06). ??Vitals stable and [...] follow-up visit please call one of the rn sexual assault on Wednesday-Wednesday between the hours of 8A- 5PM. Cardiology Clinic number @ [phone] If off hours contact the cardiac fellow on- call. Hospital Extrusion Supervisor can help you. Hospital phone number [phone] Return to work: In 1 week Drivin hours post catheterization Follow up Appointments: Doctor Where Phone # Date Time Bouchra Frias APRN [address] / [facility] [address] 09/13/19 8:30 Discharge References/Attachments None Discussed with MD Natalia Lira APRN Pager [phone] 08/31/2019 documented in this encounter Discharge Instructions * Discharge Instructions* Natalia Urbina APRN - 08/31/2019 3:54 PM EDT Call your doctor if: Chest pain, dyspnea, pain or swelling in legs occurs. If you have non-emergent questions, prior to your follow-up visit please call one of the rn sexual assault on Wednesday-Wednesday between the hours of 8A- 5PM. Cardiology Clinic number @ [phone] If off hours contact the cardiac fellow on- call. Hospital Extrusion Supervisor can help you. Hospital phone number [phone] Return to work: In 1 week Drivin hours post catheterization Follow up Appointments: Doctor Where Phone # Date Time Bouchra Frias APRN [address] / [facility] [id number] 09/13/19 8:30 * Attachments The following attachments cannot be sent through Care Everywhere. * Cardiac Catheterization: Left (Welsh) documented in this encounter Medications at Time of Discharge Medication Sig Dispensed Refills Start Date End Date fluticasone propionate (FLONASE) 50 mcg/actuation [place], Suspension 1 spray by Each Nare route [...] Spirometry Patient Loida Roque 49 y.o. 1970 [id number] Spirometry Spirometry performed successfully. Waiting for read [...] Pt wheeled out of the unit with CLERK GENERAL OFFICE. * Leonardo Jolly - 08/31/2019 12:25 PM EDT Nutrition Services Note - Low Nutrition Acuity Loida Roque is a 49 y.o. female Reason for intervention: education [facility] + NA Nutrition Plan: Patient states that she follows a low sodium restriction a home. Educational Material Guidelines for a Heart Healthy Lifestyle provided. Continue current diet. Educational Material provided. Monitor weight. Encourage good oral intake. Support and encouragement provided. Nutrition will continue to monitor and follow up with patient as needed. Active Orders Diet Daily Healthy Menu Choices/Cardiac diet ([facility]-Diet) Frequency: Effective Now Number of [...] in the interim. Leonardo Marina Jolly Pager: [phone] * Manish Benitez MD - 08/31/2019 9:33 AM EDT Images from the original note were not included. 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 [facility] 08/29 Preliminary findings: Right dominant Normal coronary [...] overnight ~3 weeks ago concerning for missed IL. ??In the ED, her EKG was abnormal with diffuse STTW abnormalities but unchanged from prior EKG in 200 7.?Troponin??I??positive at 0.25 (ULN 0.06). ??Vitals stable and patient asymptomatic at rest. ??DDimer positive at 1037 thus??CT-PE protocol??completed. ??No PE or acute aortic pathology. ??She is transferred for further work up of NSTEMI. ??EF 62% and no wall motions seen on echo. [facility] with normal cors and LVEDP 15. Will [...] Echo with EF 62% and no WMA [facility] with normal cors A1C 5.4% Bedside PFTs today ?? FULL CODE Discussed with MD Natalia Lira, ROM Pager [phone] 08/31/2019 Cardiology Attending Note I interviewed and examined the patient during comprehensive bedside rounds. I concur with the summary of interval events, active hospital-focused problem list and plan of care as described in the note below. I personally reviewed the medications, laboratory results, treatment decisions and updated the patient. Manish Benitez MD, FACP, FACC Section of Cardiovascular Medicine [facility] Materials Development Engineertelevision director [facility] of Medicine at [facility] This patient meets or has met [...] Progress Note Patient Name: Loida Roque Service: TEACHER / PA Responsible Attending: Manish Benitez [...] behavior is normal. Lab Comments: Recent Labs 08/30/19 02508/29/19202908/29/19 1510 WBC 7.4 6.3 6.5 HGB 14.8 15.3 14.1 HCT 44.8 46.4* 43.8 PLATELET 272 267 235 Recent Labs 08/29/19 1510 INR 1.2 Recent Labs 08/30/19 02508/29/19 1510 NA 139 138 K 3.8 4.2 [...] overnight ~3 weeks ago concerning for missed IL. In the ED, her EKG was abnormal [...] IVP ; net negative 450 ml; await RHC Aspirin 324/81mg Plavix 300/75 mg Heparin drip [...] FACP, FACC Section of Cardiovascular Medicine [facility] Materials Development Engineertelevision director [facility] of Medicine at [facility] This patient meets or has met [...] Dustin Nino MD (Inactive) Presenting Diagnosis/Chief Complaint: RVAI, CP, NSTEMI Active Problem List: Active Hospital [...] file Gets together: Not on file Attends roman catholic service: Not on file Active member of [...] Not on file 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 fluticasone propionate (FLONASE) 50 mcg/actuation [place], Suspension 1 spray by Each Nare route [...] overnight ~3 weeks ago concerning for missed IL. In the ED, her EKG was abnormal with diffuse STTW abnormalities but unchanged from prior EKG in 2006. Troponin I positive at 0.25 (ULN 0.06). Vitals stable and patient asymptomatic at rest. DDimer positive [id number] thus CT-PE protocol completed. No PE or acute aortic pathology. She is transferred for furtherwork up of NSTEMI. Plan Echo and coronary angiography. TREATMENT PLAN: #NSTEMI Admit to cardiology Trend troponin - 1st negative at [facility] ProBNP 1242; Admit weight 207 lbs; Lasix [...] FACP, FACC Section of Cardiovascular Medicine [facility] Materials Development Engineertelevision director [facility] of Medicine at [facility] This patient meets or has met [...] Primary care provider on file: Tim Rogers, YARN PREPARATION SUPERVISOR [phone] Advance Directive on file and Code Status: Full Code Patient???s Functional Status: Independent w/o device Living Situation: lives with Boby Roque (Spouse) [phone] (M) at [address] [place] [address] Supports: Boby, Mother son and daughter Assessment: Patient with no apparent RNCM/SW needs at this time. No housing, transportation, insurance, resources concerns identified at this time. Supports in place to achieve a safe post-hospital transition. No identified barriers to accessing necessary care and/or follow-up after discharge. Plan: Patient to d/c to home when medically ready. associate professor of art/Pilates Instructor will continue to follow patient???s progress and remain available if situation changes for coordination of care, psychosocial support and/or discharge planning. Angela Loving RN * Brief Op Note - Jessee Malone MD - 08/30/2019 2:31 PM EDT Preliminary Cardiac Catheterization Procedure Note: Patient Name: Loida Roque : [id number] MR#: [id number] Case Date: 08/30/2019 Extrusion Supervisor: Surgeon(s) and Role: * Jessee Malone MD - Primary * Luis Tatum PA - Fellow Preoperative diagnosis: ?CAD Postoperative diagnosis: * CAD * Procedure(s) performed: [facility] Coronary angio Access: Right radial A time-out [...] for further details. JOCY Montaño 08/30/2019 Pager [phone] * Plan of Care - Efrain Verma [...] PM EST Office Visit Cardiology at [address] [place] [address] Jaspreet Kinsey MD [facility] [place] [address] documented as of this encounter Procedures Procedure [...] (FVC >70%) Zoe Morocho MD Natalia Urbina YARN PREPARATION SUPERVISOR PFT ORDERABLES * EKG 12 Lead (08/31/2019 7:05 AM EDT) Ventricular rate 51 BPM MUSE SYSTEM Atrial Rate 51 BPM MUSE SYSTEM P-R Interval 186 ms MUSE SYSTEM QRS Duration 82 ms MUSE SYSTEM Q-T Interval 546 ms MUSE SYSTEM QTC Calculated (Bezet) 503 ms MUSE SYSTEM Calculated P [place] 18 degrees MUSE SYSTEM Calculated R [place] 52 degrees MUSE SYSTEM Calculated T [place] 13 degrees MUSE SYSTEM INTERPRETATION Sinus bradycardia [...] 4:12 AM EDT) Neutrophil % 45.2 % [facility] Neutrophil Absolute 2.73 1.70 - 6.10 x10(3)/[facility] LAB[facility] Lymph % 34.8 % [facility] Lymphocytes Abs 2.1 0.9 - 3.2 x10(3)/[facility] Monocyte % 10.1 % [facility] Monocyte Abs 0.6 0.3 - 0.9 x10(3)/[facility] Eos % 8.9 % [facility] Eosinophils Abs 0.5(H) 0.0 - 0.4 x10(3)/[facility] LABOR[facility] Basophil % 0.8 % [facility] Baso Absolute 0.0 0.0 - 0.1 x10(3)/[facility] Immature Gran % 0.20 % [facility] Comment: Immature granulocytes(IG's)percentage and absolute count will include metamyelocytes, myelocytes, and promyelocytes. Blood smears from CBCs yielding IG's will be scanned manually for concordance. If this scan disagrees with the automated IG or if promyelocytes are noted, a manual differential will be performed. Immature Gran Absolute 0.01 0.00 - 0.04 x10(3)/[facility] LAB[facility] Blood specimen (specimen) 08/31/2019 4:12 AM EDT 08/31/2019 4:29 AM EDT Narrative Resulting Agency Comment Spec In Lab [facility] SANDRA HEMATOLOGY ORDERABLE S [facility] [place] [address] * (ABNORMAL) Hemogram (08/31/2019 4:12 AM EDT) White Blood Cell 6.0 4.0 - 9.5 x10(3)/[facility] LAB[facility] Red Blood Cell 5.08 4.00 - 5.21 x10(6)/[facility] Hemoglobin 15.7(H) 11.7 - 15.5 gm/dL [facility] Hematocrit 47.0(H) 35.7 - 45.8 % [facility] Mean Cell Volume 92.5 82.6 - 94.4 fL [facility] Mean Cell Hemoglobin 30.9 27.1 - 32.0 pg [facility] Mean Cell Hemoglobin Concentration 33.4 31.7 - 35.0 gm/dL [facility] Platelet 255 145 - 357 x10(3)/mc L [facility] RDW Standard Deviation 45.3 37.0 - 46.0 fL [facility] RDW coefficient of variation 13.2 11.5 - 14.1 % [facility] Mean Platelet Volume 11.4 7.6 - 12.9 [facility] LAB[facility] NRBC% auto 0.0 % [facility] NRBC Absolute 0.000 0.000 - 0.000 x10(3)/mc L [facility] Blood specimen (specimen) 08/31/2019 4:12 AM EDT 08/31/2019 4:29 AM EDT Narrative Resulting Agency Comment Spec In Lab [facility] SANDRA HEMATOLOGY ORDERABLE S Performing Organization Address City/[facility]/ZIP Co de Phone Number [facility] [address] * Magnesium (08/31/2019 4:12 AM EDT) Magnesium 0.92 0.69 - 1.07 mmol/L [facility] Blood specimen (specimen) 08/31/2019 4:12 AM EDT 08/31/2019 4:29 AM EDT Narrative Resulting Agency Comment Spec In Lab Manish Benitez MD CHEMISTRY ORDERABL ES Performing Organization Address City/[facility]/ZIP Co de Phone Number [facility] [address] * (ABNORMAL) BMP w/fasting Glucose (08/31/2019 4:12 AM EDT) Glucose Fasting 91 65 - 99 mg/dL [facility] Comment: ?Fasting* Glucose Interpretive Criteria [...] Urea Nitrogen 21(H) 8 - 18 mg/dL [facility] Creatinine 0.91 0.70 - 1.20 mg/dL [facility] Sodium 136 135 - 145 mmol/L [facility] Potassium 4.2 3.5 - 5.0 mmol/L [facility] Comment: Please note: ??Patients with WBC >100,000 may have falsely elevated Potassium levels. ??For accurate Potassium quantification in these patients send serum separator tube (gold top) for subsequent determinations. ??Contact the Clinical Chemistry Laboratory if there are any questions. Chloride 105 98 - 107 mmol/L [facility] Carbon Dioxide 18(L) 22 - 31 mmol/L [facility] Anion Gap 13 5 - 15 mmol/L [facility] Calcium 9.4 8.5 - 10.5 mg/dL [facility] Est Glomerular Filtration Rate 74 >=60 mL/min/1. 73 m?? [facility] Comment: The eGFR was calculated using the CKD-EPI equation. As with all creatinine based estimates of kidney function, eGFR values calculated with the CKD-EPI equation are not accurate in patients with acute kidney failure, extremes of body mass or the acutely ill. http://Xiaoi Robert/[facility]SAnkf eGFR 85 >=60 mL/min/1. 73 m?? [facility] Comment: The eGFR was calculated using the CKD-EPI equation. As with all creatinine based estimates of kidney function, eGFR values calculated with the CKD-EPI equation are not accurate in patients with acute kidney failure, extremes of body mass or the acutely ill. [email or web address]://Xiaoi [email or web address] Blood specimen (specimen) 08/31/2019 4:12 AM EDT 08/31/2019 4:29 AM EDT Narrative Resulting Agency Comment Spec In Lab Manish Benitez MD CHEMISTRY ORDERABL ES Performing Organization Address City/State/[facility] Co de Phone Number [facility] [address] * CARDIAC CATHETERIZATION (08/30/2019 2:40 PM EDT) Anatomical Region Laterality Modality Other Narrative 08/30/2019 2:59 PM EDT ?[facility] ? Cardiac Catheterization/Intervention Report ? Patient Name: Neisha, Loida ? Procedure Date: 08/30/2019 ? A #: [id number] ? Primary Physician: Kira, Jessee T ? Case #: [id number] ? File Name: [id number] ? Catheterization Order Number: [id number] ? [facility] ? Final Report [place], [place] ? Patient Name: ? Loida Neisha ? ID#: ?[id number] ? : ?1970 ? Procedure Date: ? [...] procedure was Urgent. 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 The [facility] clinical frailtyscale is 2: Well. Diagnostic Tests: Prior Coronary Angiography: LV ejection fraction within 6 months is 65%. Medications Prior to Procedure: Aspirin. Indications for Diagnostic Cath: The priority of the diagnostic procedure was Urgent. 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 [id number] ?Sex: ?F ? Site Loc: ? [facility] ?Ht / Wt: ??163(cm)/94(kg) Pt. Loc: ?Adult Floor ? BSA: ?1.99 Study Date: ?? 08/30/2019 ?Pt. Type: Inpatient Tape: ? Referring: POOJA IYER J Reading: Jose Chambers ([id number]) Glass Robot Operator: Jaspreet Oneil RDCS Interpreting Fellow: Poncho Yates ([id number]) Diagnosis: *Non-ST elevation (NSTEMI) myocardial infarction (I21.4) [...] Vmax ?0.35 ? m/sec ? MV deceleration [id number] ?msec ? MV A-wave Vmax ?0.25 ? [...] ? Mid-Inferior ?Normal ? Mid-Inferoseptal ?Normal ? Diamond-Septal ? Normal ? Diamond-Anterior ? Normal ? Diamond-Lateral ?Normal ? Diamond-Inferior ? Normal ? Diamond-Tip ?Normal ? This report has been electronically signed by: Jose Chambers MD ? 08/30/2019 14:21:57 Images reviewed and interpretation verified [facility] Cardiac Ultrasound Laboratory Procedure Note Jose Chambers MD - 08/30/2019 Procedure: Transthoracic Echocardiogram Patient: NEISHA VÁSQUEZ(Age): 1970(49y) Med Rec#: [id number] Sex: F Site Loc: [facility] Ht / Wt: 163(cm)/94(kg) Pt. Loc: Adult Floor BSA: 1.99 Study Date: 08/30/2019 Pt. Type: Inpatient Tape: Referring: POOJA IYER J Reading: Jose Chambers ([id number]) Glass Robot Operator: Jaspreet Oneil [facility] Interpreting Fellow: Poncho Yates ([id number]) Diagnosis: *Non-ST elevation (NSTEMI) myocardial infarction (I21.4) [...] MV E-wave Vmax 0.35 m/sec MV deceleration [id number] msec MV A-wave Vmax 0.25 m/sec MV [...] Normal Mid-Posterolateral Normal Mid-Inferior Normal Mid-Inferoseptal Normal Diamond-Septal Normal Diamond-Anterior Normal Diamond-Lateral Normal Diamond-Inferior Normal Diamond-Tip Normal This report has been electronically signed by: Jose Chambers MD 08/30/2019 14:21:57 Images reviewed and interpretation verified [facility] Cardiac Ultrasound Laboratory Manish Benitez MD ECHO ORDERABLES * EKG 12 Lead (08/30/2019 10:28 AM EDT) Ventricular rate 52 BPM MUSE SYSTEM Atrial Rate 52 BPM MUSE SYSTEM P-R Interval 162 ms MUSE SYSTEM QRS Duration 84 ms MUSE SYSTEM Q-T Interval 536 ms MUSE SYSTEM QTC Calculated (Bezet) 498 ms MUSE SYSTEM Calculated P [place] -9 degrees MUSE SYSTEM Calculated R [place] 43 degrees MUSE SYSTEM Calculated T [place] -27 degrees MUSE SYSTEM INTERPRETATION Sinus bradycardia [...] (unfractionated) Level (08/30/2019 2:53 AM EDT) Pathologist [facility] UF Heparin 0.44 IU/mL [facility] Comment: Guidelines for therapeutic [...] MD HEMATOLOGY ORDERAB LES Performing Organization Address City/State/[facility] Co de Phone Number [facility] [address] * (ABNORMAL) Differential, Automated (08/30/2019 2:53 AM EDT) Neutrophil % 52.4 % [facility] Neutrophil Absolute 3.85 1.70 - 6.10 x10(3)/mc L [facility] Lymph % 29.3 % [facility] Lymphocytes Abs 2.2 0.9 - 3.2 x10(3)/mc L [facility] Monocyte % 9.1 % [facility] Monocyte Abs 0.7 0.3 - 0.9 x10(3)/mc L [facility] Eos % 8.6 % [facility] Eosinophils Abs 0.6(H) 0.0 - 0.4 x10(3)/mc L [facility] Basophil % 0.5 % [facility] Baso Absolute 0.0 0.0 - 0.1 x10(3)/mc L [facility] Immature Gran % 0.10 % [facility] Comment: Immature granulocytes(IG's)percentage and absolute count will include metamyelocytes, myelocytes, and promyelocytes. Blood smears from CBCs yielding IG's will be scanned manually for concordance. If this scan disagrees with the automated IG or if promyelocytes are noted, a manual differential will be performed. Immature Gran Absolute 0.01 0.00 - 0.04 x10(3)/ L [facility] Blood specimen (specimen) 08/30/2019 2:53 AM EDT 08/30/2019 3:01 AM EDT Narrative Resulting Agency Comment Spec In Lab [facility] SANDRA HEMATOLOGY ORDERABLE S [facility] [place] [address] * (ABNORMAL) Hemogram (08/30/2019 2:53 AM EDT) White Blood Cell 7.4 4.0 - 9.5 x10(3)/[facility] LABORATORY Red Blood Cell 4.84 4.00 - 5.21 x10(6)/[facility] LABORATORY Hemoglobin 14.8 11.7 - 15.5 gm/dL [facility] Hematocrit 44.8 35.7 - 45.8 % [facility] Mean Cell Volume 92.6 82.6 - 94.4 fL [facility] Mean Cell Hemoglobin 30.6 27.1 - 32.0 pg [facility] Mean Cell Hemoglobin Concentration 33.0 31.7 - 35.0 gm/dL [facility] Platelet 272 145 - 357 x10(3)/[facility] LABORATORY RDW Standard Deviation 46.2(H) 37.0 - 46.0 [facility] LABORATORY RDW coefficient of variation 13.5 11.5 - 14.1 % [facility] Mean Platelet Volume 10.9 7.6 - 12.9 fL [facility] NRBC% auto 0.0 % [facility] NRBC Absolute 0.000 0.000 - 0.000 x10(3)/ L [facility] Blood specimen (specimen) 08/30/2019 2:53 AM EDT 08/30/2019 3:01 AM EDT Narrative Resulting Agency Comment Spec In Lab [place] SANDRA HEMATOLOGY ORDERABLE S Performing Organization Address [facility] Co de Phone Number [facility] [address] * Magnesium (08/30/2019 2:53 AM EDT) Magnesium 0.90 0.69 - 1.07 mmol/L [facility] Blood specimen (specimen) 08/30/2019 2:53 AM EDT 08/30/2019 3:01 AM EDT Narrative Resulting Agency Comment Spec In Lab Manish Benitez MD CHEMISTRY ORDERABL ES Performing Organization Address [facility] Co de Phone Number [facility] [place] [address] * (ABNORMAL) BMP w/fasting Glucose (08/30/2019 2:53 AM EDT) Glucose Fasting 102(H) 65 - 99 mg/dL [facility] Comment: ?Fasting* Glucose Interpretive Criteria [...] Urea Nitrogen 18 8 - 18 mg/dL [facility] Creatinine 1.09 0.70 - 1.20 mg/dL [facility] Sodium 139 135 - 145 mmol/L [facility] Potassium 3.8 3.5 - 5.0 mmol/L [facility] Comment: Please note: ??Patients with WBC >100,000 may have falsely elevated Potassium levels. ??For accurate Potassium quantification in these patients send serum separator tube (gold top) for subsequent determinations. ??Contact the Clinical Chemistry Laboratory if there are any questions. Chloride 103 98 - 107 mmol/L [facility] Carbon Dioxide 19(L) 22 - 31 mmol/L [facility] Anion Gap 17(H) 5 - 15 mmol/L [facility] Calcium 9.0 8.5 - 10.5 mg/dL [facility] Est Glomerular Filtration Rate 59(L) >=60 mL/min/1. 73 m?? [facility] Comment: The eGFR was calculated using the CKD-EPI equation. As with all creatinine based estimates of kidney function, eGFR values calculated with the CKD-EPI equation are not accurate in patients with acute kidney failure, extremes of body mass or the acutely ill. http://Xiaoi Robert/[facility]SAnkf eGFR 69 >=60 mL/min/1. 73 m?? [facility] Comment: The eGFR was calculated using the CKD-EPI equation. As with all creatinine based estimates of kidney function, eGFR values calculated with the CKD-EPI equation are not accurate in patients with acute kidney failure, extremes of body mass or the acutely ill. [email or web address] – TULSAnkf Blood specimen (specimen) 08/30/2019 2:53 AM EDT 08/30/2019 3:01 AM EDT Narrative Resulting Agency Comment Spec In Lab Manish Benitez MD CHEMISTRY ORDERABL ES [facility] [place] [address] * Triglyceride (08/30/2019 2:53 AM EDT) Triglyceride 203 mg/dL [facility] Comment: Average Risk/Lower Risk: <150 mg/dL Borderline High Risk: 150-199 mg/dL High Risk: 200-499 mg/dL Very High Risk: >cg=786 mg/dL Blood specimen (specimen) 08/30/2019 2:53 AM EDT 08/30/2019 3:01 AM EDT Narrative Resulting Agency Comment Spec In Lab Manish Benitez MD CHEMISTRY ORDERABL ES [facility] [place] [address] * HDL/Cholesterol Profile (08/30/2019 2:53 AM EDT) Cholesterol, Total 220 mg/dL [facility] Comment: Lower Risk: <200 mg/dL Average Risk: 200-239 mg/dL Higher Risk: >dl=379 mg/dL HDL Cholesterol 34 mg/dL [facility] Comment: Males: ?? Higher Risk: <40 mg/dL Females: ?? HIgher Risk: <50 mg/dL Cholesterol/HDL Ratio 6.5 ratio [facility] Chol/HDL Interpretation See Note [facility] Comment: Lipid management should be guided by a patient? s ASCVD risk, goals and preferences. ACC/AHA Guidelines recommend high intensity statin if clinical ASCVD or LDL greater than or equal to 190 mg/dL. http://[email or web address]/DBJ-JBA-Upmdhbruw Measure LDL if Total Cholesterol minus HDL Cholesterol is greater than 220 mg/dL. Adults aged 40-75 with LDL 70-189 mg/dL should have their 10 year ASCVD risk estimated with the ACC/AHA ASCVD risk utilities estimator and drafter http://tools.acc.org/JHISN-Nrlz-Foemphuex/ Statin should be discussed if risk greater [...] MD CHEMISTRY ORDERABL ES Performing Organization Address [facility] de Phone Number [facility] [place] [address] * LDL Cholesterol, Direct (08/30/2019 2:53 AM EDT) LDL Cholesterol, Direct 165 mg/dL [facility] Comment: Lowest Risk: <100 mg/dL Lower Risk: 100-129 mg/dL Borderline High Risk: 130-159 mg/dL High Risk: 160-189 mg/dL Very High Risk: >nv=046 mg/dL Blood specimen (specimen) 08/30/2019 2:53 AM EDT 08/30/2019 3:01 AM EDT Narrative Resulting Agency Comment Spec In Lab Manish Benitez MD CHEMISTRY ORDERABL ES Performing Organization Address [facility] de Phone Number [facility] [address] * Hemoglobin A1c (08/30/2019 2:53 AM EDT) Hemoglobin A1c 5.4 4.3 - 5.6 % [facility] Comment: Reference Range: 4.3 - [...] Mellitus, Diabetes Care 2013; 36: Suppl. 1, W18-26 Estimated Average Glucose 108 mg/dL [facility] Comment: eAG [...] into estimated average glucose values. ??Diabetes Care 2008:31(8):8755-3366. Blood specimen (specimen) 08/30/2019 2:53 AM EDT 08/30/2019 3:01 AM EDT Narrative Resulting Agency Comment Spec In Lab Manish Benitez MD CHEMISTRY ORDERABL ES Performing Organization Address [facility] de Phone Number [facility] [place] [address] * CK (08/30/2019 2:53 AM EDT) Creatine Kinase 82 0 - 160 unit/L [facility] Blood specimen (specimen) 08/30/2019 2:53 AM EDT 08/30/2019 3:01 AM EDT Narrative Resulting Agency Comment Spec In Lab Manish Benitez MD CHEMISTRY ORDERABL ES Performing Organization Address [facility] de Phone Number [facility] [place] [address] * Troponin (08/30/2019 2:53 AM EDT) Troponin-T <0.01 0.00 - 0.00 ng/mL [facility] Comment: The 99th percentile for Troponin T is less than 0.01 ng/mL, any detectable cTnT concentration using this assay should be considered elevated. According to the third universal definition of myocardial infarction the following criteria with a clinical presentation consistent with acute myocardial ischemia meets the diagnosis for a myocardial infarction ([place]). Detection of a rise and/or fall of cTnT, with at least one value greater than the 99th percentile (> or = 0.01) and with at least one of the following ?? Symptoms of ischemia ?? New or presumed new significant SB-bwwuyes-U wave (ST-T) changes or new left bundle [...] additional sample may be indicated. Reference: Third [place] Definition of Myocardial Infarction. Journal of the [place] College of Cardiology 2012;60:1581-98 Blood specimen (specimen) 08/30/2019 2:53 AM EDT 08/30/2019 3:01 AM EDT Narrative Resulting Agency Comment Spec In Lab Manish Benitez MD CHEMISTRY ORDERABL ES [facility] [place] [address] * (ABNORMAL) Differential, Automated (08/29/2019 8:30 PM EDT) Neutrophil % 56.5 % [facility] Neutrophil Absolute 3.58 1.70 - 6.10 x10(3)/mc L [facility] Lymph % 25.9 % [facility] Lymphocytes Abs 1.6 0.9 - 3.2 x10(3)/mc L [facility] Monocyte % 8.8 % [facility] Monocyte Abs 0.6 0.3 - 0.9 x10(3)/mc L [facility] Eos % 7.7 % [facility] Eosinophils Abs 0.5(H) 0.0 - 0.4 x10(3)/ L [facility] Basophil % 0.8 % [facility] Baso Absolute 0.0 0.0 - 0.1 x10(3)/ L [facility] Immature Gran % 0.30 % [facility] Comment: Immature granulocytes(IG's)percentage and absolute count will include metamyelocytes, myelocytes, and promyelocytes. Blood smears from CBCs yielding IG's will be scanned manually for concordance. If this scan disagrees with the automated IG or if promyelocytes are noted, a manual differential will be performed. Immature Gran Absolute 0.02 0.00 - 0.04 x10(3)/[facility] Blood specimen (specimen) 08/29/2019 8:30 PM EDT 08/29/2019 9:11 PM EDT Narrative Resulting Agency Comment Spec In Lab Abeba SANDRA HEMATOLOGY ORDERABLE S [facility] [place] [address] * (ABNORMAL) Hemogram (08/29/2019 8:30 PM EDT) White Blood Cell 6.3 4.0 - 9.5 x10(3)/[facility] Red Blood Cell 5.03 4.00 - 5.21 x10(6)/[facility] Hemoglobin 15.3 11.7 - 15.5 gm/dL [facility] Hematocrit 46.4(H) 35.7 - 45.8 % [facility] Mean Cell Volume 92.2 82.6 - 94.4 fL [facility] Mean Cell Hemoglobin 30.4 27.1 - 32.0 pg [facility] Mean Cell Hemoglobin Concentration 33.0 31.7 - 35.0 gm/dL [facility] Platelet 267 145 - 357 x10(3)/mc L [facility] RDW Standard Deviation 46.4(H) 37.0 - 46.0 [facility] RDW coefficient of variation 13.6 11.5 - 14.1 % [facility] Mean Platelet Volume 11.3 7.6 - 12.9 [facility] NRBC% auto 0.0 % [facility] NRBC Absolute 0.000 0.000 - 0.000 x10(3)/mc L [facility] Blood specimen (specimen) 08/29/2019 8:30 PM EDT 08/29/2019 9:11 PM EDT Narrative Resulting Agency Comment Spec In Lab Abeba SANDRA HEMATOLOGY ORDERABLE S [facility] [place] [address] * Heparin (unfractionated) Level (08/29/2019 8:30 PM EDT) UF Heparin 0.46 IU/mL [facility] Comment: Guidelines for therapeutic [...] MD HEMATOLOGY ORDERAB LES Performing Organization Address [facility] Co de Phone Number [facility] [address] * CK (08/29/2019 8:30 PM EDT) Creatine Kinase 94 0 - 160 unit/L [facility] Blood specimen (specimen) 08/29/2019 8:30 PM EDT 08/29/2019 9:11 PM EDT Narrative Resulting Agency Comment Spec In Lab Manish Benitez MD CHEMISTRY ORDERABL ES Performing Organization Address [facility] de Phone Number [facility] [place] [address] * Troponin (08/29/2019 8:30 PM EDT) Pathologist [facility] Troponin-T <0.01 0.00 - 0.00 ng/mL [facility] Comment: The 99th percentile for Troponin T is less than 0.01 ng/mL, any detectable cTnT concentration using this assay should be considered elevated. According to the third universal definition of myocardial infarction the following criteria with a clinical presentation consistent with acute myocardial ischemia meets the diagnosis for a myocardial infarction ([place]). Detection of a rise and/or fall of cTnT, with at least one value greater than the 99th percentile (> or = 0.01) and with at least one of the following ?? Symptoms of ischemia ?? New or presumed new significant LC-nvidurs-Z wave (ST-T) changes or new left bundle [...] additional sample may be indicated. Reference: Third [place] Definition of Myocardial Infarction. Journal of the [place] College of Cardiology 2012;60:1581-98 Blood specimen (specimen) 08/29/2019 8:30 PM EDT 08/29/2019 9:11 PM EDT Narrative Resulting Agency Comment Spec In Lab Manish Benitez MD CHEMISTRY ORDERABL ES Performing Organization Address [facility]/ZIP Co de Phone Number [facility] [place] [address] * EKG 12 Lead (08/29/2019 4:19 PM EDT) Ventricular rate 67 BPM MUSE SYSTEM Atrial Rate 67 BPM MUSE SYSTEM P-R Interval 164 ms MUSE SYSTEM QRS Duration 80 ms MUSE SYSTEM Q-T Interval 478 ms MUSE SYSTEM QTC Calculated (Bezet) 505 ms MUSE SYSTEM Calculated P [place] 34 degrees MUSE SYSTEM Calculated R [place] 30 degrees MUSE SYSTEM Calculated T [place] -29 degrees MUSE SYSTEM INTERPRETATION Demand pacemaker; [...] Benitez MD ECG ORDERABLES Performing Organization Address [facility]/ZIP Co de Phone Number MUSE SYSTEM * (ABNORMAL) Differential, Automated (08/29/2019 3:10 PM EDT) Neutrophil % 58.3 % [facility] Neutrophil Absolute 3.79 1.70 - 6.10 x10(3)/mc L [facility] Lymph % 22.7 % [facility] Lymphocytes Abs 1.5 0.9 - 3.2 x10(3)/mc L [facility] Monocyte % 10.3 % [facility] Monocyte Abs 0.7 0.3 - 0.9 x10(3)/mc L [facility] Eos % 7.8 % [facility] Eosinophils Abs 0.5(H) 0.0 - 0.4 x10(3)/ L [facility] Basophil % 0.6 % [facility] Baso Absolute 0.0 0.0 - 0.1 x10(3)/[facility] Immature Gran % 0.30 % [facility] Comment: Immature granulocytes(IG's)percentage and absolute count will include metamyelocytes, myelocytes, and promyelocytes. Blood smears from CBCs yielding IG's will be scanned manually for concordance. If this scan disagrees with the automated IG or if promyelocytes are noted, a manual differential will be performed. Immature Gran Absolute 0.02 0.00 - 0.04 x10(3)/[facility] Blood specimen (specimen) 08/29/2019 3:10 PM EDT 08/29/2019 3:50 PM EDT Narrative Resulting Agency Comment Spec In Lab Abeba SANDRA HEMATOLOGY ORDERABLE S [facility] [place] [address] * (ABNORMAL) Hemogram (08/29/2019 3:10 PM EDT) White Blood Cell 6.5 4.0 - 9.5 x10(3)/[facility] Red Blood Cell 4.69 4.00 - 5.21 x10(6)/[facility] Hemoglobin 14.1 11.7 - 15.5 gm/dL [facility] Hematocrit 43.8 35.7 - 45.8 % [facility] Mean Cell Volume 93.4 82.6 - 94.4 fL [facility] Mean Cell Hemoglobin 30.1 27.1 - 32.0 pg [facility] Mean Cell Hemoglobin Concentration 32.2 31.7 - 35.0 gm/dL [facility] Platelet 235 145 - 357 x10(3)/[facility] RDW Standard Deviation 47.2(H) 37.0 - 46.0 fL [facility] RDW coefficient of variation 13.7 11.5 - 14.1 % [facility] Mean Platelet Volume 11.5 7.6 - 12.9 [facility] NRBC% auto 0.0 % [facility] NRBC Absolute 0.000 0.000 - 0.000 x10(3)/mc L [facility] Blood specimen (specimen) 08/29/2019 3:10 PM EDT 08/29/2019 3:50 PM EDT Narrative Resulting Agency Comment Spec In Lab Abeba SANDRA HEMATOLOGY ORDERABLE S Performing Organization Address [facility] Co de Phone Number [facility] [place] [address] * Hepatic Function Panel (08/29/2019 3:10 PM EDT) Protein, Total 7.1 6.1 - 8.0 gm/dL [facility] Albumin 4.0 3.2 - 5.2 gm/dL [facility] Aspartate Aminotransferase 25 0 - 30 unit/L [facility] Alanine Aminotransferase 19 0 - 30 unit/L [facility] Alkaline Phosphatase 49 35 - 105 unit/L [facility] Bilirubin, Total 0.7 0.2 - 1.3 mg/dL [facility] Bilirubin, Direct 0.1 0.0 - 0.3 mg/dL [facility] Blood specimen (specimen) 08/29/2019 3:10 PM EDT 08/29/2019 3:52 PM EDT Narrative Resulting Agency Comment Spec In Lab Manish Benitez MD CHEMISTRY ORDERABL ES Performing Organization Address City/[facility]/ZIP Co de Phone Number [facility] [place] [address] * TSH (08/29/2019 3:10 PM EDT) [facility] Thyroid Stimulating Hormone 1.87 0.27 - 4.20 mcIU/mL [facility] Blood specimen (specimen) 08/29/2019 3:10 PM EDT 08/29/2019 3:52 PM EDT Narrative Resulting Agency Comment Spec In Lab Manish Benitez MD CHEMISTRY ORDERABL ES Performing Organization Address [facility]/ZIP Co de Phone Number [facility] [place] [address] * (ABNORMAL) pro-Brain Natriuretic Peptide (08/29/2019 3:10 PM EDT) [facility] NT-proBNP 1,242(H) <=125 pg/mL [facility] Blood specimen (specimen) 08/29/2019 3:10 PM EDT 08/29/2019 3:52 PM EDT Narrative Resulting Agency Comment Spec In Lab Manish Benitez MD CHEMISTRY ORDERABL ES Performing Organization Address [facility] Co de Phone Number [facility] [place] [address] * CK (08/29/2019 3:10 PM EDT) [facility] Creatine Kinase 96 0 - 160 unit/L [facility] Blood specimen (specimen) 08/29/2019 3:10 PM EDT 08/29/2019 3:52 PM EDT Narrative Resulting Agency Comment Spec In Lab Manish Benitez MD CHEMISTRY ORDERABL ES Performing Organization Address [facility] Co de Phone Number [facility] [place] [address] * Troponin (08/29/2019 3:10 PM EDT) [facility] Troponin-T <0.01 0.00 - 0.00 ng/mL [facility] Comment: The 99th percentile for Troponin T is less than 0.01 ng/mL, any detectable cTnT concentration using this assay should be considered elevated. According to the third universal definition of myocardial infarction the following criteria with a clinical presentation consistent with acute myocardial ischemia meets the diagnosis for a myocardial infarction ([place]). Detection of a rise and/or fall of cTnT, with at least one value greater than the 99th percentile (> or = 0.01) and with at least one of the following ?? Symptoms of ischemia ?? New or presumed new significant AO-cakcvaq-T wave (ST-T) changes or new left bundle [...] additional sample may be indicated. Reference: Third [place] Definition of Myocardial Infarction. Journal of the [place] College of Cardiology 2012;60:1581-98 Blood specimen (specimen) 08/29/2019 3:10 PM EDT 08/29/2019 3:52 PM EDT Narrative Resulting Agency Comment Spec In Lab Manish Benitez MD CHEMISTRY ORDERABL ES [facility] [place] [address] * (ABNORMAL) APTT (08/29/2019 3:10 PM EDT) Partial Thromboplastin Time 132(Criti edy) 25 - 37 sec [facility] Comment: Critical Result called by [...] MD HEMATOLOGY ORDERAB LES Performing Organization Address [facility]/ZIP Co de Phone Number [facility] [place] [address] * (ABNORMAL) Prothrombin Time (08/29/2019 3:10 PM EDT) Prothrombin Time 13.3(H) 9.4 - 12.5 sec [facility] International Normalization Ratio 1.2 [facility] Comment: An INR [...] MD HEMATOLOGY ORDERAB LES Performing Organization Address [facility]/ZIP Co de Phone Number [facility] [place] [address] * (ABNORMAL) Basic Metabolic Panel (non-fasting) (08/29/2019 3:10 PM EDT) Glucose 83 65 - 199 mg/dL [facility] Comment:Diabetes: >=200 mg/d L plus symptoms Blood Urea Nitrogen 15 8 - 18 mg/dL [facility] Creatinine 0.84 0.70 - 1.20 mg/dL [facility] [...] questions. Chloride 105 98 - 107 mmol/L [facility] Carbon Dioxide 19(L) 22 - 31 mmol/L [facility] Anion Gap 14 5 - 15 mmol/L [facility] Calcium 9.2 8.5 - 10.5 mg/dL [facility] Est Glomerular Filtration Rate 81 >=60 mL/min/1. 73 m?? [facility] Comment: The eGFR was calculated using the CKD-EPI equation. As with all creatinine based estimates of kidney function, eGFR values calculated with the CKD-EPI equation are not accurate in patients with acute kidney failure, extremes of body mass or the acutely ill. [email or web address] [email or web address] [email or web address] eGFR 94 >=60 mL/min/1. 73 m?? [facility] Comment: The eGFR was calculated using the CKD-EPI equation. As with all creatinine based estimates of kidney function, eGFR values calculated with the CKD-EPI equation are not accurate in patients with acute kidney failure, extremes of body mass or the acutely ill. [email or web address] [email or web address] – TULSAnkf Blood specimen (specimen) 08/29/2019 3:10 PM EDT 08/29/2019 3:52 PM EDT Narrative Resulting Agency Comment Spec In Lab Manish Benitez MD CHEMISTRY ORDERABL ES [facility] [place] [address] documented in this encounter Visit Diagnoses Not [...] Procedural area)1530 ([facility] Unhold - Provider: Admin Adt)2029 (Given - Provider: Gauri Arroyo RN) 0818 (Given - Provider: Maia Vásquez, ERWIN) heparin (Porcine) subcutaneous injection 5,000 Units 5,000 Units, Subcutaneous, EVERY 12 HOURS SCHEDULED (2 times per day), First dose on Wed08/30/19 at 2100, Until Discontinued, Routine 2030 (Given - Provider: Gauri Arroyo RN) 08 (Given - Provider: Maia Vásquez RN) potassium [...] 0843 (Given - Provider: Mark Nick RN)1357 ([facility] Hold - Provider: Admin Adt - Reason: Transfer to a Procedural area)153 ([facility] Unhold - Provider: Admin Adt) 0817 (Given [...] at 1632, Until Aura 08/31/19 at 2024, Pain, Headaches, Maximum dose of [...] UA) documented in this encounter Care Teams Debt And Budget Counselor Relationship Specialty Start Date End Date Tim Rogers DNP PCP - General Family Medicine 08/28/19 06/08/21 documented as of this encounter
--- OUTSIDE RECORDS SUMMARY | 2024-01-24 12:40 | XMS_ITS | Encounter Summary ---
[place] [address] Care Team Providers Care Special Education Preschool Teacher Name Role Phone Dustin Nino MD Primary Care Provider [phone] Encounter Details Date Type Department Care Team (Late st Contact Info) Description 06/20/2010 [place] [address] Lashonda York MD [facility] [address] [place] [address] Social History Tobacco Use Types Packs/Day Years [...] PM EST Office Visit Cardiology at [address] [place] [address] Jaspreet Kinsey MD [facility] [place] [address] documented as of this encounter Visit Diagnoses Not on filedocumented in this encounter Care Teams Special Education Preschool Teacher Relationship Specialty Start Date End Date Dustin Nino MD [address] [place] [address] PCP - General 06/11/10 08/27/19 documented as of this encounter
--- OUTSIDE RECORDS SUMMARY | 2024-01-24 12:40 | XMS_ITS | Encounter Summary ---
Author Organization [facility] [place] [address] Care Team Providers Care Outside Machinist Apprentice Name Role Phone Tim Rogers DNP Primary Care Provider [phone] Encounter Details Date Type Department Care Team (Late st Contact Info) Description 05/06/2020 [place] [address] [place] Marc Social History Tobacco Use Types [...] PM EST Office Visit Cardiology at [address] [place] [address] Jaspreet Kinsey MD [facility] [place] [address] documented as of this encounter Visit Diagnoses Not on filedocumented in this encounter Care Teams Outside Machinist Apprentice Relationship Specialty Start Date End Date Tim Rogers DNP PCP - General Family Medicine 08/28/19 06/08/21 documented as of this encounter
[2024-01-24] MEDS: Aspirin 81 MG CHEW 324 MG CH (13:14)
[2024-01-24 13:22] LABS: Abs Immature Grans 0.01 10^3/uL (0.0-0.06); Absolute Basophil Count 0.03 10^3/uL (0.0-0.2); Absolute Eosinophil Count 0.26 10^3/uL (0.0-0.7); Absolute Lymphocyte Count 1.74 10^3/uL (1.2-3.4); Absolute Monocyte Count 0.54 10^3/uL (0.1-0.8); Basophils % 0.6 %; HGB 14.7 g/dL (11.2-15.7); Immature Grans % 0.2 %; Lymphocytes % 33.6 %; MCH 31.5 pg (27.0-33.0); MCHC 34.2 % (32.0-36.0); MCV 92 fL (80-95); MPV 10.4 fL (8.0-11.0); Monocytes % 10.4 %; Neutrophils % 50.2 %; Platelet Count 228 10^3/uL (130-400); RBC 4.67 10^6/uL (3.93-5.22); RDW 13.1 % (11.7-14.6); RDW-SD 43.9 fL; WBC 5.18 10^3/uL (4.4-10.8)
--- NOTE | 2024-01-24 13:27 | DI.RAD_ITS ---
Exam(s) XR PORTABLE CHEST AP EXAM: XR PORTABLE CHEST AP CLINICAL HISTORY: cp. TECHNIQUE: 2D digital imaging was performed. COMPARISON: Prior chest x-ray 09/20/2023 FINDINGS: Single AP portable view. Heart size is upper normal. The mediastinum is not widened. Lungs are clear. No infiltrates nor obvious pleural effusions. IMPRESSION: No acute pulmonary findings on this single AP portable view of the chest. DATA REPOSITORY: RADIATION DOSE DELIVERED:
[2024-01-24 13:44] LABS: ALT 32 U/L (14-59); AST 20 U/L (15-37); Albumin 3.9 g/dL (3.4-5.0); Alkaline Phosphatase 54 U/L (46-116); Anion Gap 10.5 mmol/L (3-11); BUN 20 mg/dL (7-18); Bilirubin, Total 0.43 mg/dL (0.2-1.0); CO2 23.5 mmol/L (21.0-32.0); CREATININE 1.4 mg/dL (0.55-1.02); Calcium 8.9 mg/dL (8.5-10.1); Chloride 106 mmol/L (98-107); Estimated GFR 44.71 (mL/min/1.73m2); Glucose 86 mg/dL (74-106); Potassium 4.1 mmol/L (3.5-5.1); Sodium 140 mmol/L (136-145); Total Protein 7.8 g/dL (6.4-8.2)
[2024-01-24 13:50] LABS: Troponin I 396 ng/L (<or=51)
[2024-01-24 13:53] LABS: PTT Activated 32.3 sec (23.6-32.8)
--- NOTE | 2024-01-24 13:54 | W.ED.GENAD ---
Discharge Plan Disposition Patient Disposition: Admit to [facility] Discharge Details Primary Care Provider: Polo Pearce ED Provider: Aaron Rodriguez [place] Meds and New Rx's Prescriptions: No Action ropinirole 1 mg tablet 1 mg PO BID Rx Instructions: @ 1600 and 2100 potassium chloride 20 mEq tablet,ER particles/crystals 40 meq PO BID atorvastatin 80 mg tablet 40 mg PO QPM Wegovy 0.5 mg/0.5 mL pen injector 0.5 mg subcut QWEEK Rx Instructions: administer weeks 5 through 8 of therapy Ubrelvy 50 mg tablet 50 mg PO ONCE Rx Instructions: as a single dose; may repeat once in >=2 hours after first dose if needed topiramate [Topamax] 100 mg tablet 100 mg PO QHS Qty: 90 3RF Aimovig Autoinjector 140 mg/mL auto-injector 140 mg subcut QMONTH Qty: 1 11RF fluticasone propionate [Flonase Allergy Relief] 9.9 ML spray,suspension 2 spray NS DAILY duloxetine [Cymbalta] 60 mg capsule,delayed release(DR/EC) 60 mg PO DAILY Qty: 30 2RF albuterol sulfate 90 mcg/actuation HFA aerosol inhaler 2 puff inhalation Q4H PRN loratadine [Allergy Relief (loratadine)] 10 mg tablet 10 mg PO DAILY PRN nitroglycerin 0.4 mg tablet, sublingual 0.4 mg sublingual Q5M PRN Rx Instructions: do not exceed 3 doses per episode clobetasol 0.05 % ointment 1 applic topical DIRECTED omeprazole 20 mg capsule,delayed release(DR/EC) 20 mg PO DAILY gabapentin 600 mg tablet 600 mg PO QHS Qty: 90 3RF apixaban 5 mg tablet 5 mg PO BID Jardiance 10 mg tablet 10 mg PO DAILY ranolazine 1,000 mg tablet extended release 12 hr 1,000 mg PO BID spironolactone 25 mg tablet 25 mg PO DAILY montelukast 10 mg tablet 10 mg PO DAILY PRN melatonin 10 mg capsule 10 mg PO HS PRN metoprolol tartrate 25 mg tablet 12.5 mg PO DAILY torsemide 20 mg Tablet 20 mg PO DAILY Qty: 90 0RF metolazone 2.5 mg tablet 2.5 mg PO PRN PRNQty: 0 0RF HPI General Date/Time Provider Initiated Documentation: 11/18/24 12:54. HPI Narrative: MDM This is an overall well-appearing not tachycardic nor febrile 53-year-old female with chest pain shortness of breath for which she will undergo troponin testing. No pain out of proportion to suggest necrotizing soft tissue infection. No vomiting to suggest increased risk for esophageal rupture. No trauma to suggest increased risk for pneumothorax. No rash to chest to suggest zoster. No cough no fever to suggest pneumonia. Patient has no significant lower extremity pitting edema and does not appear volume overloaded so I do not feel that she requires diuresis. Not hypotensive nor dialysis patients and the suspicion is low for tamponade. I send I did D-dimer which was unremarkable so I did not complete a CT scan as my suspicion is low for PE. 4pm I spoke to Vianey Mike from cards at [facility]. She advised hospitalizing the patient locally and trending troponins while treating NSTEMI with heparinization. She also advised discontinuing the patient's spironolactone in the morning and trial the patient on low-dose isosorbide mononitrate 15 mg. She reported no indication for left heart catheterization at this point in time. I spoke with Dr. Loving from the hospitalist service who agreed graciously to accept patient for hospitalization. She is down in weight compared to discharge weight at [facility] so certainly her soft blood pressures could be the result of overmedication. Will defer nitroglycerin. Patient received aspirin in the emergency department 324 mg. Chronic conditions affecting the care of the patient: Nonobstructive coronary artery disease History obtained from an outside historian: N/A External record review: [facility] EMR Diagnostic interpretations performed by me: Per my independent interpretation chest x-ray shows: Per my independent interpretation EKG shows: Sinus bradycardia rate of 54 with interventricular conduction delay and first-degree AV block. Normal axis. QTc within normal limits. Mild diffuse ST segment depressions. Compared to prior dated last month ST segment depressions are persistent. ]Medications: Aspirin heparin Social determinants of health affecting disposition: N/A Management discussed with: Cardiology hospitalist Treatment/interventions considered: N/A Response to therapies provided: Improved symptoms in the ED HPI This is a 53-year-old female with a history of nonobstructive coronary artery disease prior to the emergency department via private vehicle in the setting of chest pressure. Patient has been nauseous but has not been vomiting. She denies history of hypertension and diabetes but does have hyperlipidemia. She describes a central chest pressure that radiates into her neck. She has not had any syncopal episodes. She denies routine tobacco use. No history of PEs or DVTs. No history of dialysis. No recent falls. Exam General: Well-appearing in no acute distress speaking in complete sentences. Head: Normocephalic, atraumatic. Eye: Extraocular eye movements intact. No conjunctival injection. No scleral icterus. Ear, nose, mouth, throat: Grossly normal inspection. Normal voice, handling secretions normally. Neck: Trachea midline. Cardiovascular: Well-perfused distal extremities. Regular rate and rhythm Respiratory: Nonlabored respiration. Clear lungs bilaterally. Gastrointestinal: Nondistended abdomen. Musculoskeletal: No edema. Moving all 4 extremities spontaneously. Skin: Normal for age and race, grossly normal temperature and turgor. No acute rash. Neurologic: Alert and appropriate, no apparent acute deficits. Psychiatric: Mood and manner are appropriate. Grooming and personal hygiene are appropriate. Related Data Home Medications ?Medication ?Instructions ?Recorded ?Confirmed fluticasone propionate 50 2 spray NS DAILY 12/23/16 01/24/24 mcg/actuation nasal spray,suspension (Flonase Allergy Relief) ropinirole 1 mg tablet 1 mg PO BID 06/12/20 01/24/24 duloxetine 60 mg capsule,delayed 60 mg PO DAILY #30 mg 08/19/20 01/24/24 release (Cymbalta) albuterol sulfate 90 mcg/actuation 2 puff inhalation Q4H PRN 05/30/21 01/24/24 aerosol inhaler loratadine 10 mg tablet (Allergy 10 mg PO DAILY PRN 05/30/21 01/24/24 Relief (loratadine)) nitroglycerin 0.4 mg sublingual 0.4 mg sublingual Q5M PRN 09/25/21 01/24/24 tablet clobetasol 0.05 % topical ointment 1 applic topical DIRECTED 08/28/22 01/24/24 omeprazole 20 mg capsule,delayed 20 mg PO DAILY 08/28/22 01/24/24 release gabapentin 600 mg tablet 600 mg PO QHS #90 tabs 01/04/23 01/24/24 melatonin 10 mg capsule 10 mg PO HS PRN 04/16/23 01/24/24 apixaban 5 mg tablet 5 mg PO BID 08/13/23 01/24/24 empagliflozin 10 mg tablet 10 mg PO DAILY 08/13/23 01/24/24 (Jardiance) ranolazine 1,000 mg 1,000 mg PO BID 08/13/23 01/24/24 tablet,extended release,12 hr spironolactone 25 mg tablet 25 mg PO DAILY 08/13/23 01/24/24 atorvastatin 80 mg tablet 40 mg PO QPM 09/16/23 01/24/24 montelukast 10 mg tablet 10 mg PO DAILY PRN 09/16/23 01/24/24 potassium chloride 20 mEq 40 meq PO BID 09/16/23 01/24/24 tablet,extended release(part/cryst) metolazone 2.5 mg tablet 2.5 mg PO PRN PRN #0 tabs 09/25/23 01/24/24 torsemide 20 mg tablet 20 mg PO DAILY #90 tabs 09/25/23 01/24/24 metoprolol tartrate 25 mg tablet 12.5 mg PO DAILY 10/05/23 01/24/24 erenumab-aooe 140 mg/mL 140 mg subcut QMONTH #1 mL 01/19/24 01/24/24 subcutaneous auto-injector (Aimovig Autoinjector) semaglutide (weight loss) 0.5 0.5 mg subcut QWEEK 01/19/24 01/24/24 mg/0.5 mL subcutaneous pen injector (Wegovy) topiramate 100 mg tablet (Topamax) 100 mg PO QHS #90 tab-caps 01/19/24 01/24/24 ubrogepant 50 mg tablet (Ubrelvy) 50 mg PO ONCE 01/19/24 01/24/24 Previous Rx's ?Medication ?Instructions ?Recorded duloxetine 60 mg capsule,delayed 60 mg PO DAILY #30 mg 08/19/20 release (Cymbalta) gabapentin 600 mg tablet 600 mg PO QHS #90 tabs 01/04/23 metolazone 2.5 mg tablet 2.5 mg PO PRN PRN #0 tabs 09/25/23 torsemide 20 mg tablet 20 mg PO DAILY #90 tabs 09/25/23 erenumab-aooe 140 mg/mL 140 mg subcut QMONTH #1 mL 01/19/24 subcutaneous auto-injector (Aimovig Autoinjector) topiramate 100 mg tablet (Topamax) 100 mg PO QHS #90 tab-caps 01/19/24 Allergies Allergy/AdvReac Type Severity Reaction Status Date / Time acetaminophen (From Tylenol) AdvReac Intermediate jittery Unverified 01/24/24 12:36 like too much caffeine clobetasol AdvReac Intermediate Skin Rash Verified 01/24/24 12:36 codeine AdvReac Mild Not able Verified 01/24/24 12:36 to sleep ibuprofen AdvReac migraines Unverified 01/24/24 12:36 environmental Allergy Mild sneezing/triggers Uncoded 01/24/24 12:36 her asthma General Stated Complaint: Chest Pain MIKAELA: 2 Course Vital Signs Vital signs: Vital Signs Temperature 36.4 C L 01/24/24 12:33 Pulse 54 L 01/24/24 12:33 Respiratory Rate 14 01/24/24 12:33 Blood Pressure 108/73 01/24/24 12:33 Pulse Oximetry 99 01/24/24 12:33 Temperature 36.4 C L 01/24/24 12:33 Temperature Source Axillary 01/24/24 12:33 Pulse 54 L 01/24/24 12:33 Respiratory Rate 13 01/24/24 12:51 Respiratory Effort Normal, Non-Labored 01/24/24 12:51 Respiratory Depth Normal 01/24/24 12:51 Respiratory Pattern Normal 01/24/24 12:51 Blood Pressure 108/73 01/24/24 12:33 Blood Pressure Position Sitting 01/24/24 12:33 Pulse Oximetry 99 01/24/24 12:33 Oxygen Delivery Method Room Air 01/24/24 12:33 Oxygen Flow Rate 0 01/24/24 12:33 Pain Level 8 01/24/24 12:51 Lab/Test Results Lab/Test Results: Laboratory Tests Range/Units 01/24/24 13:05 WBC (4.4-10.8) 10^3/uL 5.18 RBC (3.93-5.22) 10^6/uL 4.67 Hgb (11.2-15.7) g/dL 14.7 Hct (36.0-46.0) % 43.0 MCV (80-95) fL 92 MCH (27.0-33.0) pg 31.5 MCHC (32.0-36.0) % 34.2 RDW (11.7-14.6) % 13.1 Plt Count (130-400) 10^3/uL 228 MPV (8.0-11.0) fL 10.4 Immature Gran % % 0.2 Neutrophils % % 50.2 Lymphocytes % % 33.6 Monocytes % % 10.4 Eosinophils % % 5.0 Basophils % % 0.6 Nucleated RBC % (0.0-0.3) % 0.0 Absolute Neutrophils (1.2-6.7) 10^3/uL 2.60 Absolute Lymphocytes (1.2-3.4) 10^3/uL 1.74 Absolute Monocytes (0.1-0.8) 10^3/uL 0.54 Absolute Eosinophils (0.0-0.7) 10^3/uL 0.26 Absolute Basophils (0.0-0.2) 10^3/uL 0.03 Sodium (136-145) mmol/L 140 Potassium (3.5-5.1) mmol/L 4.1 Chloride (98-107) mmol/L 106 Carbon Dioxide (21.0-32.0) mmol/L 23.5 Anion Gap (3-11) mmol/L 10.5 BUN (7-18) mg/dL 20 H Creatinine (0.55-1.02) mg/dL 1.4 H Est GFR (CKD-EPI 2020) (mL/min/1.73m2) 44.71 Glucose (74-106) mg/dL 86 Calcium (8.5-10.1) mg/dL 8.9 Total Bilirubin (0.2-1.0) mg/dL 0.43 AST (15-37) U/L 20 ALT (14-59) U/L 32 Alkaline Phosphatase (46-116) U/L 54 Troponin I (<or=51) ng/L 396 H* Total Protein (6.4-8.2) g/dL 7.8 Albumin (3.4-5.0) g/dL 3.9 Medical Decision Making Quality:SDOH Health Related Social Needs: No Data to Display PFSH All Active Problems (Updated 01/19/24 @ 09:19 by Charu Gonzalez) Atypical migraine (Acute) Otalgia, right ear (Acute) Acute otitis media of right ear with perforated tympanic membrane (Acute) Non-ST elevation FL (NSTEMI) (Acute) Chronic kidney disease, stage III (moderate) (Acute) Hypermagnesemia (Acute) Acute hypokalemia (Acute) Ground glass opacity present on imaging of lung (Acute) Elevated troponin (Acute) CATIE (acute kidney injury) (Acute) Restrictive lung disease secondary to obesity (Acute) Allergic asthma (Acute) intermittent, controlled Dyspnea (Acute) Diarrhea (Acute) Congestive heart failure (Chronic) Sick euthyroidism (Acute) Carpal tunnel syndrome (Acute) GERD (gastroesophageal reflux disease) (Chronic) Bilateral renal artery stenosis (Acute) Encounter for weight loss counseling (Acute) Pulmonary emboli (Chronic) Arthritis of carpometacarpal (CMC) joint of left thumb (Acute) Avulsion fracture of right talus (Acute 12/30/21) Bilateral carpal tunnel syndrome (Acute) Paresthesia of hand, bilateral (Acute) Abnormal chest CT (Acute) Pulmonary hypertension (Acute) Atypical chest pain (Acute) PSVT (paroxysmal supraventricular tachycardia) (Acute) Acute non-ST elevation myocardial infarction (NSTEMI) (Acute) Elevated troponin I level (Acute) Right upper quadrant abdominal pain (Acute) Chronic heart failure with preserved ejection fraction (Chronic) Restless legs syndrome (Acute) Rhinitis, nonallergic, chronic (Acute) Tendinitis (Acute) Chest pain (Acute) Migraine headache without aura (Acute) Lichen sclerosus (Acute) MARYLOU (obstructive sleep apnea) (Chronic) Migraine with aura and without status migrainosus, not intractable (Acute 02/24/16) Medical History Myocardial infarction 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 Mild intermittent asthma Atherosclerosis of renal artery Heart failure Supraventricular tachycardia Atrial fibrillation Superior mesenteric artery stenosis (~03/10/22) see CTA abdomen and pelivs: 80% narrowing of SMA origin Renal artery stenosis (~03/10/22) right renal artery stenosis per CTA abomen/pelvis Hx of supraventricular tachycardia Infiltrate of lower lobe of left lung present on imaging study Acute non-ST elevation myocardial infarction (NSTEMI) COVID-19 Left lateral epicondylitis Arthritis of carpometacarpal (CMC) joint of left thumb Left wrist pain CHI (closed head injury) Acute bronchitis Non-ST elevation FL (NSTEMI) Insomnia Asthma Migraine Overweight Endometriosis Depression Surgical History History of radiofrequency ablation (RFA) procedure for cardiac arrhythmia Hx of tubal ligation History of partial hysterectomy Family History Daughter Migraines Mother Hypertension Father Heart disease Social History Smoking/Tobacco Use Status: Never Smoking risk assessment performed?: Yes Alcohol Intake: never Drug use: Never Substance use type: does not use Housing: house Current gender identity: female Do you feel safe at home: Yes Do you feel safe in your relationship?: Yes Female Reproductive History Menstrual Menopause type: surgical History History 2 Para 2 Hx # Term Pregnancies Multiple births Hx # Pregnancies Ectopic pregnancies AB induced Hx Number of Living Children AB spontaneous
[2024-01-24 13:57] LABS: D-Dimer 241 ng/mlFEU (<500)
[2024-01-24 15:18] LABS: Troponin I 342 ng/L (<or=51)
[2024-01-24 16:31] LABS: Troponin I 359 ng/L (<or=51)
[2024-01-24] MEDS: Heparin in 0.45% NaCl 25,000 UNIT/250 ML BAG 10 UNIT IVINF (16:40)
--- NOTE | 2024-01-24 17:25 | HPE_ITS ---
Date of service: 01/24/24 Time of Service: 17:25 Assessment and Plan Assessment and plan (1) ACTIE (acute kidney injury): Status: Resolved Assessment and plan: Labs do show mild elevation in BUN as well as creatinine. Estimated GFR is 44 continue with current plans (2) Hypokalemia: Status: Resolved Assessment and plan: Patient's potassium is currently 4.1 we will continue with current replenishment (3) Elevated troponin: Status: Acute Assessment and plan: I would consider her presentation curious, complex, and compelling. In reviewing the consultation from cardiology I do not see a clear plan on why she is on heparin, what we should do if the troponins continue to rise are stable or drop, or what disease the patient actually has. What I do know is that they do not want to accept her in transfer. At this point we will continue with the heparin drip and recheck serial troponins throughout the night. Also get serial EKGs. (4) Chronic heart failure with preserved ejection fraction: Status: Chronic Assessment and plan: - Last echocardiogram likely done 06/14/2023 at [facility] shows normal LVEF - No echo at [facility] since then, but had Cardiac MRI, PET, and purfusion imaging showing fixed defect and microvascular disease, normal LVEF. -Continue home statin, spironolactone, decreased dose of torsemide and metolazone as noted above -decreased lopressor to 12.5mg BID due to ongoing bradycardia which had led to HRs in the 50's, now still in 50s but will continue this dose. -continue to monitor on telemetry given ongoing low blood pressure and patient symptoms, we continue to adjust medications. I was able to review the cardiology consult from the last visit. Will continue with medical management at this point. (5) MARYLOU (obstructive sleep apnea): Status: Chronic Assessment and plan: - Continue home CPAP (6) Restless legs syndrome: Status: Acute Assessment and plan: -Continue home ropinirole History of Present Illness History of Present Illness Chief Complaint: chest pain Consults Consult date: 01/24/24 Requesting physician: Aaron Rodriguez Narrative: This patient is a 53-year-old female whose had multiple contacts with the ED here as well as an [facility] for chest pain. I have reviewed records from her previous admissions as well as from [facility] themselves. At this time the patient is complaining of 8 days of intermittent chest pain that does resolve with nitroglycerin. She also has vaginal compliance with pain in her arm as well as jaw. Patient states that she has been taking her medications as prescribed otherwise. Patient does continue to have elevated troponins and a consult to higher level care was placed by Dr. Rodriguez in the ED. According to the conversation that was relayed to me as well as looking at the consult itself they asked that the patient stay here and be put on a heparin drip for serial troponins. What the plan would be if the troponin started to elevate was not addressed. In reviewing the consults from [facility] patient did have cardiac cath in April 2023 which showed nonobstructive disease. She also had a PET scan done which showed an anterior scar pattern. On she had a echocardiogram that showed preserved ejection fraction furthermore in reviewing the notes from her senior etl developer the question is whether or not the patient has microvascular coronary artery disease Among other potential diagnoses. In further review of her chart she does have a superior mesenteric artery stent which is patent as well as a history of PE. PFSH All Active Problems (Updated 01/19/24 @ 09:19 by Charu Gonzalez) Atypical migraine (Acute) Otalgia, right ear (Acute) Acute otitis media of right ear with perforated tympanic membrane (Acute) Non-ST elevation PR (NSTEMI) (Acute) Chronic kidney disease, stage III (moderate) (Acute) Hypermagnesemia (Acute) Acute hypokalemia (Acute) Ground glass opacity present on imaging of lung (Acute) Elevated troponin (Acute) CATIE (acute kidney injury) (Acute) Restrictive lung disease secondary to obesity (Acute) Allergic asthma (Acute) intermittent, controlled Dyspnea (Acute) Diarrhea (Acute) Congestive heart failure (Chronic) Sick euthyroidism (Acute) Carpal tunnel syndrome (Acute) GERD (gastroesophageal reflux disease) (Chronic) Bilateral renal artery stenosis (Acute) Encounter for weight loss counseling (Acute) Pulmonary emboli (Chronic) Arthritis of carpometacarpal (CMC) joint of left thumb (Acute) Avulsion fracture of right talus (Acute 12/30/21) Bilateral carpal tunnel syndrome (Acute) Paresthesia of hand, bilateral (Acute) Abnormal chest CT (Acute) Pulmonary hypertension (Acute) Atypical chest pain (Acute) PSVT (paroxysmal supraventricular tachycardia) (Acute) Acute non-ST elevation myocardial infarction (NSTEMI) (Acute) Elevated troponin I level (Acute) Right upper quadrant abdominal pain (Acute) Chronic heart failure with preserved ejection fraction (Chronic) Restless legs syndrome (Acute) Rhinitis, nonallergic, chronic (Acute) Tendinitis (Acute) Chest pain (Acute) Migraine headache without aura (Acute) Lichen sclerosus (Acute) MARYLOU (obstructive sleep apnea) (Chronic) Migraine with aura and without status migrainosus, not intractable (Acute 02/24/16) Medical History Myocardial infarction 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 Mild intermittent asthma Atherosclerosis of renal artery Heart failure Supraventricular tachycardia Atrial fibrillation Superior mesenteric artery stenosis (~03/10/22) see CTA abdomen and pelivs: 80% narrowing of SMA origin Renal artery stenosis (~03/10/22) right renal artery stenosis per CTA abomen/pelvis Hx of supraventricular tachycardia Infiltrate of lower lobe of left lung present on imaging study Acute non-ST elevation myocardial infarction (NSTEMI) COVID-19 Left lateral epicondylitis Arthritis of carpometacarpal (CMC) joint of left thumb Left wrist pain CHI (closed head injury) Acute bronchitis Non-ST elevation PR (NSTEMI) Insomnia Asthma Migraine Overweight Endometriosis Depression Surgical History History of radiofrequency ablation (RFA) procedure for cardiac arrhythmia Hx of tubal ligation History of partial hysterectomy Family History Daughter Migraines Mother Hypertension Father Heart disease Social History Smoking/Tobacco Use Status: Never Smoking risk assessment performed?: Yes Alcohol Intake: never Drug use: Never Substance use type: does not use Housing: house Current gender identity: female Do you feel safe at home: Yes Do you feel safe in your relationship?: Yes Female Reproductive History Menstrual Menopause type: surgical History History 2 2 Para 2 Hx # Term Pregnancies Multiple births Hx # Pregnancies Ectopic pregnancies AB induced Hx Number of Living Children AB spontaneous Meds Allergies and Home Medications Allergies Allergy/AdvReac Type Severity Reaction Status Date / Time acetaminophen (From Tylenol) AdvReac Intermediate jittery Unverified 01/24/24 12:36 like too much caffeine clobetasol AdvReac Intermediate Skin Rash Verified 01/24/24 12:36 codeine AdvReac Mild Not able Verified 01/24/24 12:36 to sleep ibuprofen AdvReac migraines Unverified 01/24/24 12:36 environmental Allergy Mild sneezing/triggers Uncoded 01/24/24 12:36 her asthma Home Medications ?Medication ?Instructions ?Recorded ?Confirmed ?Type fluticasone propionate 50 2 spray NS DAILY 12/23/16 01/24/24 History mcg/actuation nasal spray,suspension (Flonase Allergy Relief) ropinirole 1 mg tablet 1 mg PO BID 06/12/20 01/24/24 History duloxetine 60 mg capsule,delayed 60 mg PO DAILY #30 mg 08/19/20 01/24/24 Rx release (Cymbalta) albuterol sulfate 90 mcg/actuation 2 puff inhalation Q4H PRN 05/30/21 01/24/24 History aerosol inhaler loratadine 10 mg tablet (Allergy 10 mg PO DAILY PRN 05/30/21 01/24/24 History Relief (loratadine)) nitroglycerin 0.4 mg sublingual 0.4 mg sublingual Q5M PRN 09/25/21 01/24/24 History tablet clobetasol 0.05 % topical ointment 1 applic topical DIRECTED 08/28/22 01/24/24 History omeprazole 20 mg capsule,delayed 20 mg PO DAILY 08/28/22 01/24/24 History release gabapentin 600 mg tablet 600 mg PO QHS #90 tabs 01/04/23 01/24/24 Rx melatonin 10 mg capsule 10 mg PO HS PRN 04/16/23 01/24/24 History apixaban 5 mg tablet 5 mg PO BID 08/13/23 01/24/24 History empagliflozin 10 mg tablet 10 mg PO DAILY 08/13/23 01/24/24 History (Jardiance) ranolazine 1,000 mg 1,000 mg PO BID 08/13/23 01/24/24 History tablet,extended release,12 hr spironolactone 25 mg tablet 25 mg PO DAILY 08/13/23 01/24/24 History atorvastatin 80 mg tablet 40 mg PO QPM 09/16/23 01/24/24 History montelukast 10 mg tablet 10 mg PO DAILY PRN 09/16/23 01/24/24 History potassium chloride 20 mEq 40 meq PO BID 09/16/23 01/24/24 History tablet,extended release(part/cryst) metolazone 2.5 mg tablet 2.5 mg PO PRN PRN #0 tabs 09/25/23 01/24/24 Rx torsemide 20 mg tablet 20 mg PO DAILY #90 tabs 09/25/23 01/24/24 Rx metoprolol tartrate 25 mg tablet 12.5 mg PO DAILY 10/05/23 01/24/24 History erenumab-aooe 140 mg/mL 140 mg subcut QMONTH #1 mL 01/19/24 01/24/24 Rx subcutaneous auto-injector (Aimovig Autoinjector) semaglutide (weight loss) 0.5 0.5 mg subcut QWEEK 01/19/24 01/24/24 History mg/0.5 mL subcutaneous pen injector (Wegovy) topiramate 100 mg tablet (Topamax) 100 mg PO QHS #90 tab-caps 01/19/24 01/24/24 Rx ubrogepant 50 mg tablet (Ubrelvy) 50 mg PO ONCE 01/19/24 01/24/24 History Exam Narrative Exam Narrative: HEENT: Normocephalic atraumatic mucous membranes moist oropharynx clear extraocular motions are intact pupils equal round reactive to light Neck: No lymphadenopathy no JVD no thyroid megaly Cardiovascular: Regular rate and rhythm no murmur rubs or gallops Lungs: Clear to auscultation bilaterally with good air exchange able to speak in complete sentences Abdomen: Soft nontender nondistended but obese. Extremities: No sinus clubbing or edema bilaterally neurologic: Cranial nerves II through XII intact as tested reflexes upper extremity normal as tested Psych: Her affect is appropriate she has a normal speech pattern she is alert and orient x 3 Results Labs 01/24/24 13:05 01/24/24 13:05 Labs: Laboratory Results - last 24 hr 01/24/24 01/24/24 01/24/24 13:05 14:35 15:58 WBC 5.18 RBC 4.67 Hgb 14.7 Hct 43.0 MCV 92 MCH 31.5 MCHC 34.2 RDW 13.1 Plt Count 228 MPV 10.4 Immature Gran % 0.2 Neutrophils % 50.2 Lymphocytes % 33.6 Monocytes % 10.4 Eosinophils % 5.0 Basophils % 0.6 Nucleated RBC % 0.0 Absolute Neutrophils 2.60 Absolute Lymphocytes 1.74 Absolute Monocytes 0.54 Absolute Eosinophils 0.26 Absolute Basophils 0.03 APTT 32.3 D-Dimer 241 Sodium 140 Potassium 4.1 Chloride 106 Carbon Dioxide 23.5 Anion Gap 10.5 BUN 20 H Creatinine 1.4 H Est GFR (CKD-EPI 2020) 44.71 Glucose 86 Calcium 8.9 Total Bilirubin 0.43 AST 20 ALT 32 Alkaline Phosphatase 54 Troponin I 396 H* 342 H* 359 H* Total Protein 7.8 Albumin 3.9 Last Vital Signs Temp 36.4 C L 01/24/24 12:33 Pulse 46 L 01/24/24 15:16 Resp 12 01/24/24 16:30 BP 98/49 L 01/24/24 15:16 Pulse Ox 96 01/24/24 16:30 Time Spent Time spent with Patient: 55-74 minutes Time was spent: preparing to see the patient(eg.review tests), obtaining and/or reviewing separately otained hiistory, ordering medications,tests, procedures, referring, communicating with other health child daycare worker, indepentently interpreting results, counseling the patient and care coordination
[2024-01-24 20:29] LABS: *AMPHETAMINES SCREEN URINE Negative (Negative); *BARBITURATES SCREEN URINE Negative (Negative); *BENZODIAZEPINES SCREEN URINE Negative (Negative); Cannabinoids THC Negative (Negative); Cocaine Screen,Urine Negative (Negative); METHADONE URINE SCREEN Negative (Negative); OPIATES URINE SCREEN Negative (Negative); Tricyclic Antidepressants Negative (Negative)
--- NOTE | 2024-01-24 20:58 | W.PC.ACHO ---
Registration Status: Primary Language: Preferred Language: ED Information & Data Chief Complaint Chest Pain 01/24/24 13:56 Triage Note patient c/o cp over the 01/24/24 12:33 weekend with shortness of breath. has taken two nitro in the past twenty-four hours (0330 & 1130am) which helped slightly, but pain has returned. Patient is feeling L sided chest pressure, pain, heartburn. Is also having nausea and sob. Medical / Surgical History (Last Reviewed 01/19/24 @ 09:12 by Charu Gonzalez) Myocardial infarction 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 Mild intermittent asthma Atherosclerosis of renal artery Heart failure Supraventricular tachycardia Atrial fibrillation Superior mesenteric artery stenosis (~03/10/22) Renal artery stenosis (~03/10/22) Hx of supraventricular tachycardia Infiltrate of lower lobe of left lung present on imaging study Acute non-ST elevation myocardial infarction (NSTEMI) COVID-19 Left lateral epicondylitis Arthritis of carpometacarpal (CMC) joint of left thumb Left wrist pain CHI (closed head injury) Acute bronchitis Non-ST elevation DC (NSTEMI) Insomnia Asthma Migraine Overweight Endometriosis Depression (Last Reviewed 01/19/24 @ 09:12 by Charu Gonzalez) History of radiofrequency ablation (RFA) procedure for cardiac arrhythmia Hx of tubal ligation History of partial hysterectomy Most Recent Vital Signs Temperature 36.4 C L 01/24/24 12:33 Temperature Source Axillary 01/24/24 12:33 Pulse 46 L 01/24/24 15:16 Pulse 51 L 01/24/24 16:30 Respiratory Rate 12 01/24/24 16:30 Respiratory Effort Normal, Non-Labored 01/24/24 12:51 Respiratory Depth Normal 01/24/24 12:51 Respiratory Pattern Normal 01/24/24 12:51 Blood Pressure 98/49 L 01/24/24 15:16 Blood Pressure Mean 64 01/24/24 15:16 Blood Pressure Position Sitting 01/24/24 12:33 Pulse Oximetry 96 01/24/24 16:30 Oxygen Delivery Method Room Air 01/24/24 12:33 Oxygen Flow Rate 0 01/24/24 12:33 Pain Level 8 01/24/24 12:51 Allergies acetaminophen (From Tylenol) Adverse Reaction (Intermediate, Unverified 01/24/24 12:36) jittery like too much caffeine clobetasol Adverse Reaction (Intermediate, Verified 01/24/24 12:36) Skin Rash codeine Adverse Reaction (Mild, Verified 01/24/24 12:36) Not able to sleep ibuprofen Adverse Reaction (Unverified 01/24/24 12:36) migraines environmental Allergy (Mild, Uncoded 01/24/24 12:36) sneezing/triggers her asthma Precautions Isolation Standard precaution 01/24/24 12:50 Active Medications Generic Name Dose Route Start Last Admin Trade Name Markel PRN Reason Stop Dose Admin Heparin Sodium/Sodium Chloride 25,000 unit in 250 mls @ 10 mls/hr 01/24/24 16:30 01/24/24 16:40 IVINF 1,000 units/hr INFUSION JOSE 10 mls/hr Administration Protocol 1,000 UNITS/HR IV IV Catheter Type [Right Saline Lock Antecubital] IV Catheter Gauge [Right 18 Antecubital] Diagnostics 01/24/24 01/24/24 01/24/24 Range/Units 22:40 19:55 15:58 WBC (4.4-10.8) 10^3/uL RBC (3.93-5.22) 10^6/uL Hgb (11.2-15.7) g/dL Hct (36.0-46.0) % MCV (80-95) fL MCH (27.0-33.0) pg MCHC (32.0-36.0) % RDW (11.7-14.6) % Plt Count (130-400) 10^3/uL MPV (8.0-11.0) fL Immature Gran % % Neutrophils % % Lymphocytes % % Monocytes % % Eosinophils % % Basophils % % Nucleated RBC % (0.0-0.3) % Absolute Neutrophils (1.2-6.7) 10^3/uL Absolute Lymphocytes (1.2-3.4) 10^3/uL Absolute Monocytes (0.1-0.8) 10^3/uL Absolute Eosinophils (0.0-0.7) 10^3/uL Absolute Basophils (0.0-0.2) 10^3/uL APTT Pending (23.6-32.8) sec D-Dimer (<500) ng/mlFEU Sodium (136-145) mmol/L Potassium (3.5-5.1) mmol/L Chloride (98-107) mmol/L Carbon Dioxide (21.0-32.0) mmol/L Anion Gap (3-11) mmol/L BUN (7-18) mg/dL Creatinine (0.55-1.02) mg/dL Est GFR (CKD-EPI 2020) (mL/min/1.73m2) Glucose (74-106) mg/dL Calcium (8.5-10.1) mg/dL Total Bilirubin (0.2-1.0) mg/dL AST (15-37) U/L ALT (14-59) U/L Alkaline Phosphatase (46-116) U/L Troponin I 359 H* (<or=51) ng/L Total Protein (6.4-8.2) g/dL Albumin (3.4-5.0) g/dL Urine Opiates Screen Negative (Negative) Urine Methadone Screen Negative (Negative) Ur Barbiturates Screen Negative (Negative) Ur Tricyclics Screen Negative (Negative) Ur Amphetamines Screen Negative (Negative) U Benzodiazepines Scrn Negative (Negative) Urine Cocaine Screen Negative (Negative) Ur THC Screen Negative (Negative) 01/24/24 01/24/24 Range/Units 14:35 13:05 WBC 5.18 (4.4-10.8) 10^3/uL RBC 4.67 (3.93-5.22) 10^6/uL Hgb 14.7 (11.2-15.7) g/dL Hct 43.0 (36.0-46.0) % MCV 92 (80-95) fL MCH 31.5 (27.0-33.0) pg MCHC 34.2 (32.0-36.0) % RDW 13.1 (11.7-14.6) % Plt Count 228 (130-400) 10^3/uL MPV 10.4 (8.0-11.0) fL Immature Gran % 0.2 % Neutrophils % 50.2 % Lymphocytes % 33.6 % Monocytes % 10.4 % Eosinophils % 5.0 % Basophils % 0.6 % Nucleated RBC % 0.0 (0.0-0.3) % Absolute Neutrophils 2.60 (1.2-6.7) 10^3/uL Absolute Lymphocytes 1.74 (1.2-3.4) 10^3/uL Absolute Monocytes 0.54 (0.1-0.8) 10^3/uL Absolute Eosinophils 0.26 (0.0-0.7) 10^3/uL Absolute Basophils 0.03 (0.0-0.2) 10^3/uL APTT 32.3 (23.6-32.8) sec D-Dimer 241 (<500) ng/mlFEU Sodium 140 (136-145) mmol/L Potassium 4.1 (3.5-5.1) mmol/L Chloride 106 (98-107) mmol/L Carbon Dioxide 23.5 (21.0-32.0) mmol/L Anion Gap 10.5 (3-11) mmol/L BUN 20 H (7-18) mg/dL Creatinine 1.4 H (0.55-1.02) mg/dL Est GFR (CKD-EPI 2020) 44.71 (mL/min/1.73m2) Glucose 86 (74-106) mg/dL Calcium 8.9 (8.5-10.1) mg/dL Total Bilirubin 0.43 (0.2-1.0) mg/dL AST 20 (15-37) U/L ALT 32 (14-59) U/L Alkaline Phosphatase 54 (46-116) U/L Troponin I 342 H* 396 H* (<or=51) ng/L Total Protein 7.8 (6.4-8.2) g/dL Albumin 3.9 (3.4-5.0) g/dL Urine Opiates Screen (Negative) Urine Methadone Screen (Negative) Ur Barbiturates Screen (Negative) Ur Tricyclics Screen (Negative) Ur Amphetamines Screen (Negative) U Benzodiazepines Scrn (Negative) Urine Cocaine Screen (Negative) Ur THC Screen (Negative) Intake and Output - 24 Hour Total 01/24/24 12:22 thru 01/24/24 12:33 Weight 97.522 kg Falls Risk Assessment History of Falls No History 01/24/24 12:57 Contributing Factors No Factors 01/24/24 12:57 Ambulatory Aids Independent 01/24/24 12:57 Tubes/Lines None 01/24/24 12:57 Gait Evaluation No gait disturbance 01/24/24 12:57 Fall Total Score 0 01/24/24 12:57 Level of Risk Standard/Low Risk 01/24/24 12:57 Problems (Last Reviewed 01/19/24 @ 09:12 by Charu Gonzalez) Elevated troponin (Acute) Chronic heart failure with preserved ejection fraction (Chronic) Restless legs syndrome (Acute) MARYLOU (obstructive sleep apnea) (Chronic) v v v v v v v v v Sending and/or Receiving Nurses: Please use comment section below to note any information pertinent to the patient hand-off not included above. Information / Comments:53y/o female with chest pain that started over the weekend with pt taking 2 nitro. She reports left arm and shoulder pain radiating to her back. Pt has chronic elevated troponins. She received 1 ASA, 5000 unit heparin bolus, with heparin drip started @ 1000 units/hr. Report received from: Edith Chow RN
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
--- OUTSIDE RECORDS SUMMARY | 2024-01-24 21:05 | XMS_ITS | Encounter Summary ---
Author Organization [facility] [place] [address] Care Team Providers Care Digital Performance Analyst Name Role Phone Polo Pearce Primary Care Provider [phone] Encounter Details Date Type Department Care Team (Latest Contact Info) Description 01/12/2024 3:00 PM EST Office [place] [address] [place] [address] Gastroesophageal reflux disease, unspecified whether esophagitis present Social History Tobacco Use Types Packs/Day Years Used Date Smoking Tobacco: Never Smokeless Tobacco: Never Alcohol Use Standard Drinks/Week Comments Never 0 (1 standard drink = 0.6 oz pur e alcohol) [facility] Utilities Answer Date Recorded In [...] time in the past 12 m [facility], were you homeless or living in [...] hear from us within 1 week: Clinic [phone] Motility Lab scheduling [phone] Endoscopy scheduling- [phone] Ms. Roque, It was good to see you. Plan is as follows: Recommendations: Diagnosis: Consider repeat Endoscopy with biopsies for EoE Obtain abd/pelvic CT from [facility] Repeat Colonoscopy in 10 years (07/2033) Therapeutics: [...] Talk with PCP about GI symptoms on [facility] Floor [facility] We will proceed with increasing omeprazole to 40 mg daily. Patient should take 30 to 60 minutes before eating. F/U in 6 months. Thanks! Sander, ROM Functional Bowel Disorders: Information Handout for Patients and Primary Care Providers [facility] Motility, Esophageal, [facility] Swallowing Disorders [facility] [...] what is the impact? 15-20% of general [place] population has IBS or FD or both 2nd most common cause for lost work days (after common cold) in [place] Estimated $30 billion dollar cost to [place] economy per year These disorders can have [...] with immediate onset of symptoms after infection); record searcher symptoms are expected in most patients however [...] to you primary care provider and/or local grain merchandising manager and share this document. Treatment of functional [...] - this approach benefits most patients OTC (kuxc-vlm-uapjfej) medications can be used for ongoing bothersome symptoms as listed below Your provider (PCP or local Gastroenterology provider or [facility] Gastroenterology provider) may decide to use prescription [...] All-Bran psyllium buds, Metamucil, Konsyl, bulk psyllium ([employer] stores and [employer] stores) Specifically we recommend starting Metamucil or [...] but convincing medical evidence is still lacking Eegt-tvp-etsagdn supplements including probiotics are not typically evaluated [...] to decrease antibiotic-associated diarrhea and antibiotic-related infections Lckx-ttg-Ukpxjlc Medications for Functional Gut Disorders Based on [...] a stool softener that is safe for chcf usage (no risk of dependency) andthe dosage [...] (GERD) Often a combination of anti-nausea medications (sglw-wky-dhpjnrx or prescription) works better thanhigh doses of [...] for misuse/misinterpretation of this information Patient Resources [place] [employer] https://www.gastro.org/practice-guidance/su-vczxnyi-uuzqgx/ topic/rjcpafslu-iqspu-bxmxptbd-ibs Badgut.org https://badgut.org/information-centre/b-c-jvgfdvqrb-topics/ibs/ AboutIBS.org https://www.aboutibs.org/ Uptodate.com https://www.uptodate.com/contents/kkowgwduk-dgmgw-qfcnlfht-tmumxs-dhj-srbpvz documented in this encounter Progress Notes * [...] discussed the collaborative care model of the [facility] GI motility program. The patient should [...] a local GI currently (if outside the [facility] area). Yearly or bi-yearly visits with a [...] as needed. fluticasone propionate (FLONASE) 50 mcg/actuation [place], Suspension 1 spray by Each Nare route [...] Vascular Surgery (07/02/2023); Upper Gi Endoscopy, Biopsy (14847) (N/A, 07/07/2023); and Colonoscopy, Biopsy (23359) (N/A, 07/07/2023). ROS: See interval history. Physical [...] referred to pelvic floor physical therapy at [place] per patient preference. Patient has not yet heard from therapy. Will confirm that referral has been sent. TSH and Celiac Panel unremarkable. #S/P SMA sent #RLQ Pain Patient notes lower RLQ pain. Patient reports it is a constant pain. She is unsure what intensifies the pain. She notes at times the pain wakes her up. Patient recently had an abdominal/pelvic CT at [facility]. Will request the results. Patient should also continue to follow-up with vascular s/p SMA stent Can consider a referral to pain management. Recommendations: Diagnosis: Consider repeat Endoscopy with biopsies for EoE Obtain abd/pelvic CT from [facility] Repeat Colonoscopy in 10 years (07/2033) Therapeutics: [...] Talk with PCP about GI symptoms on [facility] Pelvic Floor PT- [facility] We will proceed with increasing omeprazole to 40 mg daily. Patient should take 30 to 60 minutes before eating. Counselling and Coordinating Care: Time spent reviewing records prior to this encounter on day of appointment: 0 minutes Time spent during encounter with patient including counselin minutes Time spent documenting encounter after office visit: 15 minutes [place] [address] Copy: JOCY [address] / [facility] [id number] Please note: Voice recognition technology was utilized to dictate this note. Although I do my best to review notes, minor errors in dictation may be present. documented in this encounter Plan of Treatment Upcoming Encounters Date Type Department Care Team (Late st Contact Info) Description 02/10/2024 1:00 PM EST Office Visit Cardiology at [address] [place] [address] Jaspreet Kinsey MD [facility] [place] [address] documented as of this encounter Visit Diagnoses Diagnosis Gastroesophageal reflux disease, unspecified whether esophagitis present documented in this encounter Care Teams Digital Performance Analyst Relationship Specialty Start Date End Date Polo Pearce PA [address] [place] [address] PCP - General Internal Medicine 06/09/21 documented as of this encounter
--- OUTSIDE RECORDS SUMMARY | 2024-01-24 21:05 | XMS_ITS | Encounter Summary ---
Author Organization [place] [address] Care Team Providers Care Theater Usher Name Role Phone Polo Pearce Primary Care Provider [phone] Encounter Details Date Type Department Care Team (Late st Contact Info) Description 11/02/2023 Telephone [place] [phone] Lana Gonzales, RN Social History Tobacco Use Types Packs/Day Years Used Date Smoking Tobacco: Never Smokeless Tobacco: Never Alcohol Use Standard Drinks/Week Comments Never 0 (1 standard drink = 0.6 oz pur e alcohol) [facility] Utilities Answer Date Recorded In the past 12 months has e [employer], gas, oil, or water [employer] threatened to shut off services in your [...] time in the past 12 m [facility], were you homeless or living in [...] encounter. Pt requests to have PFPT at [place], [place]. * Telephone Encounter - Lana Gonzales [...] PM EST Office Visit Cardiology at [address] [place] [address] Jaspreet Kinsey MD [facility] [place] [address] documented as of this encounter Visit Diagnoses Not on filedocumented in this encounter Care Teams Theater Usher Relationship Specialty Start Date End Date Polo Pearce PA [address] [place] [address] PCP - General Internal Medicine 06/09/21 documented as of this encounter
--- OUTSIDE RECORDS SUMMARY | 2024-01-24 21:05 | XMS_ITS | Encounter Summary ---
Author Organization [facility] [place] [address] Care Team Providers Care Railcar Switcher Name Role Phone Polo Pearce Primary Care Provider [phone] Encounter Details Date Type Department Care Team (Late st Contact Info) Description 11/22/2023 4:40 PM EDT Office Visit Cardiology at [address] [address] Porsha Mcdaniels MD [facility] [place] [address] PAF (paroxysmal atrial fibrillation) Social History Tobacco [...] any time in the past 12 m [facility], were you homeless or living in a fci (including now)? No 08/30/2023 IPV Inpatient Questions [...] not included. [facility] [place] [address] Referring Provider: Jaspreet Kinsey MD [facility] [place] [address] Reason for Consultation / Chief Complaint: MINOCA [...] MINOCA. She follows with Dr. Kinsey in [place]. She underwent CCTA 09/27 that showed mild disease in her LAD. She also had a cardiac cath in 2019 with normal cors. [facility] due to exertional chest pressure [...] and no concomitant arrhythmias Was admitted [facility] early last month for malaise, chest pain [...] , Rfl: fluticasone propionate (FLONASE) 50 mcg/actuation [place], Suspension, 1 spray by Each Nare route [...] 2+ radial pulse LUE: 2+ radial pulse SAMPLE CLERK: Normal mentation. Moves all extremities without limitation. [...] Porsha Mcdaniels MD Section of Interventional Cardiology [facility] Order Processorstaff mechanical engineer [facility] of Medicine at [facility] 11/29/2023 documented in this encounter Plan of Treatment Upcoming Encounters Date Type Department Care Team (Late st Contact Info) Description 02/10/2024 1:00 PM EST Office Visit Cardiology at [address] [place] [phone] Jaspreet Kinsey MD [facility] [place] [address] documented as of this encounter Visit Diagnoses Diagnosis PAF (paroxysmal atrial fibrillation) Atrial fibrillation documented in this encounter Care Teams Railcar Switcher Relationship Specialty Start Date End Date Polo Pearce PA S[address] [place] [address] PCP - General Internal Medicine 06/09/21 documented as of this encounter
--- OUTSIDE RECORDS SUMMARY | 2024-01-24 21:05 | XMS_ITS | Encounter Summary ---
[place] [address] Care Team Providers Care Snuff Drier Name Role Phone Polo Paerce Primary Care Provider [phone] Reason for Visit * Diagnostic Test (Routine) - Closed Specialty Diagnoses / Procedures Referred By Jayant harris Referred To Contact Gastroenterology Diagnoses Altered bowel function ARM for constipation Procedures High Definition Anal Manometry PRG ANORECTAL MANOMETRY PRG RECTAL SESATION TONE & COMPLIANCE TEST [place] [address] [facility] [address] [place] [address] Referral ID Status Reason Start Date Expiration Date V isits Requested Visits Authorized [id number] Closed Consult, Test & Treat 08/25/2023 08/24/2024 1 1 Encounter Details Date Type Department Care Team (Latest Contact Info) Description 10/29/2023 10:15 AM EDT Procedure visit Gastroenterology [place] [address] Altered bowel function Social History Tobacco Use Types Packs/Day Years Used Date Smoking Tobacco: Never Smokeless Tobacco: Never Alcohol Use Standard Drinks/Week Comments Never 0 (1 standard drink = 0.6 oz pur e alcohol) [facility] Utilities Answer Date Recorded In [...] any time in the past 12 m [facility], were you homeless or living in a [...] 10:15 AM EDT Re: Indira Roque Reg No:[id number] : 1970 Date of Service: 10/29/2023 ANORECTAL MANOMETRY w/BALLOON EXPULSION Referring provider:Mary Reyes Dear: Dr. Reyes We had the pleasure of performing a high resolution anorectal manometry on your patient in the GI Motility Laboratory at [facility]. CLINICAL HISTORY AND INDICATION As you know, [...] MD, [facility] Section of Gastroenterology and Hepatology [facility] [address] [place] [address] V: [phone] F: [phone] CC/EC: J[address] [place] [address] documented in this encounter Plan of Treatment Upcoming Encounters Date Type Department Care Team (Late st Contact Info) Description 02/10/2024 1:00 PM EST Office Visit Cardiology at [address] [place] [address] Jaspreet Kinsey MD [facility] [place] [address] documented as of this encounter Visit Diagnoses Diagnosis Altered bowel function Other symptoms involving digestive system documented in this encounter Care Teams Snuff Drier Relationship Specialty Start Date End Date Polo Pearce PA [address] [place] [address] PCP - General Internal Medicine 06/09/21 documented as of this encounter
--- OUTSIDE RECORDS SUMMARY | 2024-01-24 21:05 | XMS_ITS | Encounter Summary ---
[place] [address] Care Team Providers Care Foam Dispenser Name Role Phone Polo Pearce Primary Care Provider [phone] Reason for Visit * Diagnostic Test (Routine) - Closed Specialty Diagnoses / Procedures Referred By Jayant harris Referred To Contact Radiology Diagnoses Nausea without vomiting Early satiety Procedures NM Gastric Emptying Scan Mary Reyes [facility]DER [facility] [place] [address] [place] [address] Referral ID Status Reason Start Date Expiration Date V isits Requested Visits Authorized [id number] Closed Specialty Service Requested 08/25/2023 02/23/2025 1 1 Encounter Details Date Type Department Care Team (Latest Contact Info) Description 10/21/2023 9:03 AM EDT - 10/21/2023 11:59 PM EDT Hospital En[place] [address] [place] [address] Discharge Disposition: Home Social History Tobacco Use Types Packs/Day Years Used Date Smoking Tobacco: Never Smokeless Tobacco: Never Alcohol Use Standard Drinks/Week Comments Never 0 (1 standard drink = 0.6 oz pur e alcohol) [facility] Utilities Answer Date Recorded In [...] as needed. fluticasone propionate (FLONASE) 50 mcg/actuation [place], Suspension 1 spray by Each Nare route [...] PM EST Office Visit Cardiology at [address] [place] [address] Jaspreet Kinsey MD [facility] [place] [address] documented as of this encounter Procedures Procedure Name Priority Date/Time Associated Diagnosis Comments NM GASTRIC EMPTYING SCAN Routine 10/21/2023 1:54 PM EDT Nausea without vomiting Early satiety documented in this encounter Results * NM Gastric Emptying Scan (10/21/2023 1:54 PM EDT) WORKSTATION ID [id number] RAD Anatomical Region Laterality Modality Nuclear Medicine [...] questions please contact the health skin care instructor that requested your imaging first. ? Electronically signed by: Humberto Qureshi MD, [facility] ([phone]), at 10/21/2023 5:16 PM Narrative 10/21/2023 5:16 [...] have questions please contactthe health skin care instructor that requested your imaging first. Electronically signed by: Humberto Qureshi MD, [facility]([phone]), at 10/21/2023 5:16 PM Mary Reyes [facility]DER [facility] IMG [place] ORDERABLES documented in this encounter Visit Diagnoses Not on filedocumented in this encounter Care Teams Foam Dispenser Relationship Specialty Start Date End Date Polo Pearce PA [address] [place] [address] PCP - General Internal Medicine 06/09/21 documented as of this encounter
--- OUTSIDE RECORDS SUMMARY | 2024-01-24 21:05 | XMS_ITS | Encounter Summary ---
Author Organization [facility] Address [facility] [place] [address] Care Team Providers Care Marketing Project Specialist Name Role Phone Polo Pearce Primary Care Provider [phone] Encounter Details Date Type Department Care Team [...] PM EST Office Visit Cardiology at [address] [place] [address] Jaspreet Kinsey MD [facility] [place] [address] documented as of this encounter Visit Diagnoses Not on filedocumented in this encounter Care Teams Marketing Project Specialist Relationship Specialty Start Date End Date Polo Pearce PA [address] [place] [address] PCP - General Internal Medicine 06/09/21 documented as of this encounter
--- OUTSIDE RECORDS SUMMARY | 2024-01-24 21:05 | XMS_ITS | Encounter Summary ---
Author Organization [facility] [place] [address] Care Team Providers Care Health Professional Name Role Phone Polo Pearce Primary Care Provider [phone] Reason for Referral * Physical Therapy (Routine) - Authorized Specialty Diagnoses / Procedures Referred By Contac t Referred To Contact Physical Therapy Diagnoses Dyssynergic defecation Dustin Arce MD [facility] [place] [address] Unknown None Referral ID Status Reason Start Date Expiration Date Visits Requested Visits Authorized [id number] Authorized Evaluate and Treat Non PCP 11/02/2023 04/30/2024 12 12 Encounter Details Date Type Department Care Team (Late st Contact Info) Description 11/02/2023 Orders Only [place] [address] Dustin Arce MD [facility] [place] [address] Dyssynergic defecation Social History Tobacco Use Types [...] in the past [address] [facility], were you homeless or living [...] PM EST Office Visit Cardiology at [address] [place] [address] Jaspreet Kinsey MD [facility] [place] [address] Scheduled Referrals Name Type Priority Associated Diagnoses Orde r Schedule Referral to Physical Therapy Outpatient Referral Routine Dyssynergic defecation Ordered: 11/02/2023 documented as of this encounter Visit Diagnoses Diagnosis Dyssynergic defecation documented in this encounter Care Teams Health Professional Relationship Specialty Start Date End Date Polo Pearce PA [address] [place] [address] PCP - General Internal Medicine 06/09/21 documented as of this encounter
--- OUTSIDE RECORDS SUMMARY | 2024-01-24 21:05 | XMS_ITS | Encounter Summary ---
Author Organization [facility] Address [facility] [place] [address] Care Team Providers Care Occupancy Specialist Name Role Phone Polo Pearce Primary Care Provider [phone] Encounter Details Date Type Department Care Team [...] PM EST Office Visit Cardiology at [address] [place] [address] Jaspreet Kinsey MD [facility] [place] [address] documented as of this encounter Visit Diagnoses Not on filedocumented in this encounter Care Teams Occupancy Specialist Relationship Specialty Start Date End Date Polo Pearce PA [address] [place] [address] PCP - General Internal Medicine 06/09/21 documented as of this encounter
--- OUTSIDE RECORDS SUMMARY | 2024-01-24 21:05 | XMS_ITS | Encounter Summary ---
Author Organization [facility] Address [facility] [place] [address] Care Team Providers Care Electron Gun Inspector Name Role Phone Polo Pearce Primary Care Provider [phone] Encounter Details Date Type Department Care Team [...] in a intermediate (including now)? No 06/15/2023 Housing Stability Vital [...] were you homeless or living in a intermediate (including now)? No 08/30/2023 DH IPV Inpatient [...] PM EST Office Visit Cardiology at [address] [place] [phone] Jaspreet Kinsey MD [facility] [address] documented as of this encounter Visit Diagnoses Not on filedocumented in this encounter Care Teams Electron Gun Inspector Relationship Specialty Start Date End Date Polo Pearce PA [address] [place] [address] PCP - General Internal Medicine 06/09/21 documented as of this encounter
--- OUTSIDE RECORDS SUMMARY | 2024-01-24 21:05 | XMS_ITS | Encounter Summary ---
Author Organization [facility] [place] [address] Care Team Providers Care Moss Gatherer Name Role Phone Polo Pearce Primary Care Provider [phone] Encounter Details Date Type Department Care Team (Latest Contact Info) Description 10/29/2023 10:00 AM EDT Clinical [place] [address] Gastroesophageal reflux disease, unspecified whether esophagitis present Social History Tobacco Use Types Packs/Day Years Used Date Smoking Tobacco: Never Smokeless Tobacco: Never Alcohol Use Standard Drinks/Week Comments Never 0 (1 standard drink = 0.6 oz pur e alcohol) [facility] Utilities Answer Date Recorded In the past 12 months has e [employer], gas, oil, or water [employer] threatened to shut off services in your [...] No 06/15/2023 Housing Stability Vital Sign Answer Mitcehll [...] PM EST Office Visit Cardiology at [address] [place] [address] Jaspreet Kinsey MD [facility] [place] [address] documented as of this encounter Visit Diagnoses Diagnosis Gastroesophageal reflux disease, unspecified whether esophagitis present documented in this encounter Care Teams Moss Gatherer Relationship Specialty Start Date End Date Polo Pearce PA [address] [place] [address] PCP - General Internal Medicine 06/09/21 documented as of this encounter
--- OUTSIDE RECORDS SUMMARY | 2024-01-24 21:05 | XMS_ITS | Encounter Summary ---
Author Organization [facility] [place] [address] Care Team Providers Care Guest Attendant Name Role Phone Polo Pearce Primary Care Provider [phone] Reason for Referral * Diagnostic Test (Routine) - Closed Specialty Diagnoses / Procedures Referred By Jayant harris Referred To Contact Radiology Diagnoses Esophageal dysphagia Jackhammer esophagus Procedures XR Fluoro Esophagram (Double Contrast) [place] [address] [facility] Rad Xray [address] [place] [phone] Referral ID Status Reason Start Date Expiration Date V isits Requested Visits Authorized [id number] Closed Specialty Service Requested 12/06/2023 06/04/2025 1 [...] W NASAL IMPEDENCE ELECTROD [place] [address] [facility] [address] [place] [address] Referral ID Status Reason Start Date Expiration Date V isits Requested Visits Authorized [id number] Closed Test Only 08/25/2023 08/24/2024 1 1 Encounter Details Date Type Department Care Team (Latest Contact Info) Description 10/28/2023 9:00 AM EDT Office [place] [address] Gastroesophageal reflux disease, unspecified whether esophagitis present; [...] any time in the past 12 m 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 A clinically relevant diagnosis requires clinically relevant symptoms of dysphagia or non-cardiac chest pain. Without these symptoms, this finding does not have clinical relevance per Manchester 4.0. Mechanical obstruction must also be carefully ruled out. *These findings assume that mechanical obstruction has been ruled out. Dustin Arce MD, FRCPC Section of Gastroenterology and Hepatology [facility] [place] [address] V: [phone] F: [phone] CC/EC: JOCY [address] [address] * Dustin Arce MD - 10/28/2023 9:00 AM EDT Catheter-based pH/impedance procedure report Patient: Indira Roque Address: [address] [place] [address] : 1970 Referring provider: Korina Ponce Date [...] References: 1) Modern diagnosis of GERD: the Gabmle Consensus. Gut. 2018 Sep; 67(7): 3701-4436. 2) Validation of the Gamble classification for GORD diagnosis: acid exposure time assessed by prolonged wireless pH monitoring in healthy controls and patients with erosive oesophagitis. Gut. 2020. doi10.1136/pgloeq-0282-112542. Dustin Arce MD, FRCPC Section of Gastroenterology and Hepatology [facility] [place] [address] V: [phone] F: [phone] CC/EC: JOCY Franco [address] [place] [address] documented in this encounter Miscellaneous Notes * Addendum Note - Korina Ponce APRN - 10/28/2023 9:00 AM EDTAddended by: KORINA PONCE on: 12/06/2023 12:48 PM Modules accepted: Orders documented in this encounter Plan of Treatment Upcoming Encounters Date Type Department Care Team (Late st Contact Info) Description 02/10/2024 1:00 PM EST Office Visit Cardiology at [address] [place] [address] Jaspreet Kinsey MD [facility] [address] documented as of this encounter Results * XR Fluoro Esophagram (Double Contrast) (12/22/2023 8:18 AM EDT) WORKSTATION ID [id number] RAD Anatomical Region Laterality Modality N/A Radio [...] who have questions please contact the health veterinarian laboratory animal care that requested your imaging first. ? [...] CT chest 04/16/2023, chest radiograph 05/02/2021 FINDINGS: [employer] Supervisor image: The cardiomediastinal contours, satish, and pulmonary [...] 09/05/2023, CT chest 04/16/2023, chest radiograph05/02/2021 FINDINGS: [employer] Supervisor image: The cardiomediastinal contours, satish, and pulmonary [...] patients who have questions please contactthe health veterinarian laboratory animal care that requested your imaging first. Korina Ponce APRN IMG FLUORO ORDERAB LES documented in this encounter Visit Diagnoses Diagnosis Gastroesophageal reflux disease, unspecified whether esophagitis present Esophageal dysphagia Dysphagia, pharyngoesophageal phase Jackhammer esophagus Esophageal dysphagia Dysphagia, pharyngoesophageal phase Jackhammer esophagus documented in this encounter Care Teams Guest Attendant Relationship Specialty Start Date End Date Polo Pearce PA [address] [place] [address] PCP - General Internal Medicine 06/09/21 documented as of this encounter
--- OUTSIDE RECORDS SUMMARY | 2024-01-24 21:05 | XMS_ITS | Encounter Summary ---
Author Organization [facility] Address [facility] [address] Care Team Providers Care Mid Teacher Name Role Phone Polo Pearce Primary Care Provider [phone] Encounter Details Date Type Department Care Team [...] PM EST Office Visit Cardiology at [address] [place] [phone] Jaspreet Kinsey MD [facility] [place] [address] documented as of this encounter Visit Diagnoses Not on filedocumented in this encounter Care Teams Mid Teacher Relationship Specialty Start Date End Date Polo Pearce PA [address] [place] [address] PCP - General Internal Medicine 06/09/21 documented as of this encounter
--- OUTSIDE RECORDS SUMMARY | 2024-01-24 21:05 | XMS_ITS | Encounter Summary ---
Author Organization [facility] [place] [address] Care Team Providers Care Lap Regulator Name Role Phone Polo Pearce Primary Care Provider [phone] Encounter Details Date Type Department Care Team (Late st Contact Info) Description 01/24/2024 External [place] [address] Social History Tobacco Use Types Packs/Day Years Used Date Smoking Tobacco: Never Smokeless Tobacco: Never Alcohol Use Standard Drinks/Week Comments Never 0 (1 standard drink = 0.6 oz pur e alcohol) [facility] Utilities Answer Date Recorded In [...] PM EST Office Visit Cardiology at [address] [place] [address] Jaspreet Kinsey MD [facility] [place] [address] documented as of this encounter Procedures Procedure Name Priority Date/Time Associated Diagnosis Comments MISC EXTERNAL CARDIOLOGY RESULT Routine 01/24/2024 3:42 PM EST documented in this encounter Results * External Cardiology Result (01/24/2024 3:42 PM EST) Anatomical Region Laterality Modality Other Historical Provider EXTERNAL CARDIOLO GY RESULT documented in this encounter Visit Diagnoses Not on filedocumented in this encounter Care Teams Lap Regulator Relationship Specialty Start Date End Date Polo Pearce PA [address] [place] [address] PCP - General Internal Medicine 06/09/21 documented as of this encounter
--- OUTSIDE RECORDS SUMMARY | 2024-01-24 21:05 | XMS_ITS | Encounter Summary ---
Author Organization [facility] Address [facility] [place] [address] Care Team Providers Care Battery Tester Field Name Role Phone Polo Pearce Primary Care Provider [phone] Encounter Details Date Type Department Care Team [...] 1:00 PM EST Office Visit Cardiology at [address] [place] [address] [facility] [place] [address] documented as of this encounter Visit Diagnoses Not on filedocumented in this encounter Care Teams Battery Tester Field Relationship Specialty Start Date End Date Polo Pearce PA [address] [place] [address] PCP - General Internal Medicine 06/09/21 documented as of this encounter
--- OUTSIDE RECORDS SUMMARY | 2024-01-24 21:05 | XMS_ITS | Encounter Summary ---
[place] [address] Care Team Providers Care Therapeutic Radiologist Name Role Phone Polo Pearce Primary Care Provider [phone] Reason for Visit * Diagnostic Test (Routine) - Closed Specialty Diagnoses / Procedures Referred By Jayant harris Referred To Contact Radiology Diagnoses Nausea without vomiting Early satiety Procedures NM Gastric Emptying Scan Mary Reyes BEAN VINER [facility] [place] [address] [place] [address] Referral ID Status Reason Start Date Expiration Date V isits Requested Visits Authorized [id number] Closed Specialty Service Requested 08/25/2023 02/23/2025 1 1 Encounter Details Date Type Department Care Team (Latest Contact Info) Description 10/21/2023 9:03 AM EDT - 10/21/2023 11:59 PM EDT Hospital En[place] [address] [place] [address] Discharge Disposition: Home Social History Tobacco Use [...] time in the past [address] [facility], were you homeless or living [...] as needed. fluticasone propionate (FLONASE) 50 mcg/actuation Hume, Suspension 1 spray by Each Nare route [...] PM EST Office Visit Cardiology at [address] [place] [address] Jaspreet Kinsey MD [facility] [place] [address] documented as of this encounter Procedures Procedure Name Priority Date/Time Associated Diagnosis Comments NM GASTRIC EMPTYING SCAN Routine 10/21/2023 1:54 PM EDT Nausea without vomiting Early satiety documented in this encounter Results * NM Gastric Emptying Scan (10/21/2023 1:54 PM EDT) WORKSTATION ID [id number] RAD Anatomical Region Laterality Modality Nuclear Medicine [...] who have questions please contact the health day care home provider that requested your imaging first. ? Electronically signed by: Humberto Qureshi MD, [facility] ([phone]), at 10/21/2023 5:16 PM Narrative 10/21/2023 5:16 [...] patients who have questions please contactthe health day care home provider that requested your imaging first. Electronically signed by: Humberto Qureshi MD, [facility]([phone]), at 10/21/2023 5:16 PM Mary Reyes [facility] [facility] IMG NM ORDERABLES documented in this encounter Visit Diagnoses Not on filedocumented in this encounter Care Teams Therapeutic Radiologist Relationship Specialty Start Date End Date Polo Pearce PA [address] [place] [address] PCP - General Internal Medicine 06/09/21 documented as of this encounter
--- OUTSIDE RECORDS SUMMARY | 2024-01-24 21:05 | XMS_ITS | Encounter Summary ---
[place] [address] Care Team Providers Care Machine Worker Name Role Phone Polo Pearce Primary Care Provider [phone] Reason for Referral * Diagnostic Test (Routine) - Closed Specialty Diagnoses / Procedures Referred By Contac t Referred To Contact Radiology Diagnoses Nausea without vomiting Early satiety Procedures NM Gastric Emptying [place] [address] [place] [address] Referral ID Status Reason Start Date Expiration Date V isits Requested Visits Authorized [id number] Closed Specialty Service Requested 08/25/2023 02/23/2025 1 1 Reason for Visit * Diagnostic Test (Routine) - Closed Specialty Diagnoses / Procedures Referred By Contac t Referred To Contact Radiology Diagnoses Nausea without vomiting Early satiety Procedures NM Gastric Emptying Scan Mary Reyes VENDING [place] [address] [place] [address] Referral ID Status Reason Start Date Expiration Date V isits Requested Visits Authorized [id number] Closed Specialty Service Requested 08/25/2023 02/23/2025 1 1 Encounter Details Date Type Department Care Team (Latest Contact Info) Description 10/21/2023 9:02 AM EDT Hospital Encounter [place] [phone] Mary Reyes VENDING MACHINE TECHNICIAN [facility] [place] [address] Nausea without vomiting; Early satiety Discharge Disposition: Home Social History Tobacco Use Types Packs/Day Years Used Date Smoking Tobacco: Never Smokeless Tobacco: Never Alcohol Use Standard Drinks/Week Comments Never 0 (1 standard drink = 0.6 oz pur e alcohol) [facility] Utilities Answer Date Recorded In the past 12 months has e [employer], gas, oil, or water [employer] threatened to shut off services in your [...] time in the past [facility], were you [facility] or living [...] as needed. fluticasone propionate (FLONASE) 50 mcg/actuation Reyno, Suspension 1 spray by Each Nare route [...] PM EST Office Visit Cardiology at [address] [place] [address] Jaspreet Kinsey MD [facility] [place] [address] documented as of this encounter Procedures Procedure Name Priority Date/Time Associated Diagnosis Comments NM GASTRIC EMPTYING SCAN Routine 10/21/2023 1:54 PM EDT Nausea without vomiting Early satiety documented in this encounter Results * NM Gastric Emptying Scan (10/21/2023 1:54 PM EDT) WORKSTATION ID [id number] [facility] Anatomical Region Laterality Modality Nuclear Medicine Impressions [...] who have questions please contact the health memory care program director that requested your imaging first. ? Electronically signed by: Humberto Qureshi MD, [facility] ([phone]), at 10/21/2023 5:16 PM Narrative 10/21/2023 5:16 [...] patients who have questions please contactthe health memory care program director that requested your imaging first. Electronically signed by: Humberto Qureshi MD, [facility]([phone]), at 10/21/2023 5:16 PM Mayr Reyes VENDING MACHINE TECHNICIAN IMG NM ORDERABLES documented in this encounter [...] mCi documented in this encounter Care Teams Machine Worker Relationship Specialty Start Date End Date Polo Pearce PA [address] [place] [address] PCP - General Internal Medicine 06/09/21 documented as of this encounter
--- OUTSIDE RECORDS SUMMARY | 2024-01-24 21:05 | XMS_ITS | Encounter Summary ---
Author Organization [facility] [place] [address] Care Team Providers Care Physical Therapy Teacher Name Role Phone Polo Pearce Primary Care Provider [phone] Reason for Referral * Diagnostic Test (Routine) - Closed Specialty Diagnoses / Procedures Referred By Jayant harris Referred To Contact Radiology Diagnoses Esophageal dysphagia Jackhammer esophagus Procedures XR Fluoro Esophagram (Double Contrast) [place] [address] [facility] [employer] Xray [address] [place] [address] [place] [address] Referral ID Status Reason Start Date Expiration Date V isits Requested Visits Authorized [id number] Closed Specialty Service Requested 12/06/2023 06/04/2025 1 1 Reason for Visit * Diagnostic Test (Routine) - Closed Specialty Diagnoses / Procedures Referred By Jayant harris Referred To Contact Radiology Diagnoses Esophageal dysphagia Jackhammer esophagus Procedures XR Fluoro Esophagram (Double Contrast) [place] [address] [facility] Rad Xray [address] [place] [address] [place] [address] Referral ID Status Reason Start Date Expiration Date V isits Requested Visits Authorized [id number] Closed Specialty Service Requested 12/06/2023 06/04/2025 1 1 Encounter Details Date Type Department Care Team (Latest Contact Info) Description 12/22/2023 7:38 AM EDT - 12/22/2023 11:59 PM EDT Hospital Encounter XRay at [address] [place] [address] [place] [address] Esophageal dysphagia; Jackhammer esophagus Discharge Disposition: Home Social History Tobacco Use Types Packs/Day Years Used Date Smoking Tobacco: Never Smokeless Tobacco: Never Alcohol Use Standard Drinks/Week Comments Never 0 (1 standard drink = 0.6 oz pur e alcohol) [facility] Utilities Answer Date Recorded In the past 12 months has th e [employer], gas, oil, or water [employer] threatened to shut off services in your [...] any time in the past 12 m [facility], were you homeless or living in [...] as needed. fluticasone propionate (FLONASE) 50 mcg/actuation Spencer, Suspension 1 spray by Each Nare route [...] 4 hours as needed. Use with spacer Wegovy 0.5 mg/0.5 mL Pen Injector INJECT [...] Take 1 tablet by mouth daily. 10/28/2023 omeprazole (PriLOSEC) [address] capsuleIndications:G astroesophageal reflux disease, unspecified whether esophagitis present Take 1 capsule by mouth daily. 30 capsule 5 08/25/2023 01/12/2024 documented as of this encounter Plan of Treatment Upcoming Encounters Date Type Department Care Team (Late st Contact Info) Description 02/10/2024 1:00 PM EST Office Visit Cardiology at [address] [place] [address] Jaspreet Kinsey MD [facility] [place] [address] documented as of this encounter Procedures Procedure Name Priority Date/Time Associated Diagnosis Comments XR FLUORO BARIUM SWALLOW (DOUBLE CONTRAST) Routine 12/22/2023 8:18 AM EDT Esophageal dysphagia Jackhammer esophagus documented in this encounter Results * XR Fluoro Esophagram (Double Contrast) (12/22/2023 8:18 AM EDT) WORKSTATION ID [id number] RAD Anatomical Region Laterality Modality N/A Radio [...] who have questions please contact the health inspector health care facilities that requested your imaging first. ? Narrative [...] CT chest 04/16/2023, chest radiograph 05/02/2021 FINDINGS: [employer] Builder image: The cardiomediastinal contours, satish, and pulmonary [...] 09/05/2023, CT chest 04/16/2023, chest radiograph05/02/2021 FINDINGS: Sample Builder image: The cardiomediastinal contours, satish, and pulmonary [...] patients who have questions please contactthe health inspector health care facilities that requested your imaging first. Mary Reyes WIREWORKER IMG FLUORO ORDERAB LES documented in this [...] mLs documented in this encounter Care Teams Physical Therapy Teacher Relationship Specialty Start Date End Date Polo Pearce PA [address] [place] [address] PCP - General Internal Medicine 06/09/21 documented as of this encounter
--- OUTSIDE RECORDS SUMMARY | 2024-01-24 21:05 | XMS_ITS | Encounter Summary ---
Author Organization [facility] [address] Care Team Providers Care It Security Specialist Name Role Phone Polo Pearce Primary Care Provider [phone] Encounter Details Date Type Department Care Team (Late st Contact Info) Description 09/20/2023 [place] [phone] Vito Pearce MD [facility] [place] [address] Social History Tobacco Use Types Packs/Day Years Used Date Smoking Tobacco: Never Smokeless Tobacco: Never Alcohol Use Standard Drinks/Week Comments Never 0 (1 standard drink = 0.6 oz pur e alcohol) [facility] Utilities Answer Date Recorded In the past 12 months has e [employer], gas, oil, or water [employer] threatened to shut off services in your [...] Referring provider: Jasen Montes MD Patient location: [facility] Past medical history: Microvascular disease; nonobstructive [...] oscillating regional function of the anterior wall. [facility] [place] 04/2023 Coronary Angiography: Dominance: Right Left Main [...] PM EST Office Visit Cardiology at [address] [place] [address] [facility] [place] [address] documented as of this encounter Visit Diagnoses Not on filedocumented in this encounter Care Teams It Security Specialist Relationship Specialty Start Date End Date Polo Pearce PA [address] [place] [address] PCP - General Internal Medicine 06/09/21 documented as of this encounter
--- OUTSIDE RECORDS SUMMARY | 2024-01-24 21:05 | XMS_ITS | Clinical Summary ---
Author Organization [facility] Address [facility] [place] [address] Care Team Providers Care Radiotelegraphist Name Role Phone Polo Pearce Primary Care Provider [phone] Allergies Active Allergy Reactions Criticality Noted Date [...] spacer Active fluticasone propionate (FLONASE) 50 mcg/actuation Robson, Suspension 1 spray by Each Nare route [...] 04/29/2020 Overview (10/28/2023): 05/2021: subacute, presented to [facility] with RUQ pain, weight gain, and [...] sarcoid. Anterior scar pattern 06/2023: [place] [facility] [place]TE with low-normal [...] possibility should still be entertained. Will ask philatelic consultant contacts/colleagues regarding this prospect - torsemide 20 [...] consider referral to the clare Mcdaniels of [facility] expertise IN the meantime, increase torsemide [...] discharge summary and medication administration record from [facility] to see what was given to her [...] diagnosis of hypertension 06/07/2021 07/23/2021 Non-ST elevation NM (NSTEMI) 08/29/2019 03/16/2022 Rhinitis, nonallergic, chronic 06/26/2010 07/30/2022 Encounters Date Type Department Care Team Description 01/24/2024 Telephone Cardiology at [address] [address] Maegan Mike APRN Advice Only 01/24/2024 External [place] [phone] 01/12/2024 3:00 PM EST Office [place] [address] Mary Reyes, FINANCIAL SALES REPRESENTATIVE Gastroesophageal reflux disease, unspecified whether esophagitis present 01/12/2024 Travel 12/22/2023 7:38 AM EDT - 12/22/2023 11:59 PM EDT Hospital Encounter XRay at [address] [place] [address] Mary Reyes, FINANCIAL SALES REPRESENTATIVE Esophageal dysphagia; Jackhammer esophagus Discharge Disposition: Home 12/22/2023 Travel 12/13/2023 10:00 AM EDT Clinical Support [place] [address] Lucero Romero, ALVA Gastroesophageal reflux disease, unspecified whether esophagitis present 12/13/2023 Travel 11/29/2023 1:00 PM EDT Office [place] [address] Selene Browning, PhD Moderate episode of recurrent major depressive disorder; Trauma and stressor-related disorder 11/29/2023 Travel 11/22/2023 4:40 PM EDT Office Visit Cardiology at [address] [address] Porsha Mcdaniels MD PAF (paroxysmal atrial fibrillation) 11/22/2023 Travel 11/02/2023 Orders [place] [address] Dustin Arce MD Dyssynergic defecation 11/02/2023 Telephone [place] [address] Lana Gonzales RN 10/29/2023 10:15 AM EDT Procedure [place] [address] Altered bowel function 10/29/2023 10:00 AM EDT Clinical [place] [address] Gastroesophageal reflux disease, unspecified whether esophagitis present 10/28/2023 9:00 AM EDT Office [place] [address] Gastroesophageal reflux disease, unspecified whether esophagitis present; Esophageal dysphagia; Jackhammer esophagus 10/28/2023 Travel 10/26/2023 4:00 PM EDT Office Visit Cardiology at [address] [place] [address] Jaspreet Kinsey MD Heart failure with preserved [...] any time in the past 12 m [facility], were you homeless or living in a detention (including now)? No 08/30/2023 DH IPV Inpatient [...] PM EST Office Visit Cardiology at [address] [place] [phone] Jaspreet Kinsey MD [facility] [place] [address] Health Maintenance Due Date Last Done Comments [...] history exists Medical Devices Implanted Type Area Supervisor Production Device Identifier Shelf Expiration Date Model / Serial / Lot Stent Graft [id number] cm Il Viabahn Vbx ([id number]) ([employer]ore[employer])-06/07 Implanted:Qty : 1 on 07/02/[address] MD IMPLANTS Arterial [employer] [id number] / / [id number] Description:sma stent placem ent Procedures Procedure Name Priority Date/Time Associated Diagnosis Comments MISC EXTERNAL CARDIOLOGY RESULT Routine 01/24/2024 3:42 PM EST XR FLUORO BARIUM SWALLOW (DOUBLE CONTRAST) Routine 12/22/2023 8:18 AM EDT Esophageal dysphagia Jackhammer esophagus BASIC METABOLIC PANEL Routine 09/10/2023 4:17 AM EDT LIPID PANEL (REFLEX DIRECT LDL) Routine 08/28/2023 9:07 PM EDT COLONOSCOPY Routine 07/07/2023 1:39 PM EDT from Last 3 Months or Most Recently Relevant to Health Maintenance Results * External Cardiology Result (01/24/2024 3:42 PM EST) Anatomical Region Laterality Modality Other Historical Provider EXTERNAL CARDIOLO GY RESULT * XR Fluoro Esophagram (Double Contrast) (12/22/2023 8:18 AM EDT) WORKSTATION ID [id number] [facility] Anatomical Region Laterality Modality N/A Radio Fluoroscop [...] CT chest 04/16/2023, chest radiograph 05/02/2021 FINDINGS: Basic Combatant Swimmer image: The cardiomediastinal contours, satish, and pulmonary [...] 09/05/2023, CT chest 04/16/2023, chest radiograph05/02/2021 FINDINGS: Basic Combatant Swimmer image: The cardiomediastinal contours, satish, and pulmonary [...] primary care that requested your imaging first. Mary Marina Reyes FINANCIAL SALES REPRESENTATIVE IMG FLUORO ORDERAB LES * (ABNORMAL) Basic Metabolic Panel (non-fasting) (09/10/2023 4:17 AM EDT) Glucose 92 65 - 199 mg/dL [facility] Comment:Diabetes: >=200 mg/d L plus symptoms Blood Urea Nitrogen 27(H) 8 - 18 mg/dL [facility] Creatinine 1.39(H) 0.70 - 1.20 mg/dL [facility] [...] mmol/L [facility] Carbon Dioxide 24 22 - 31 mmol/L [facility] Anion Gap 11 5 - 15 mmol/L [facility] Calcium 9.4 8.5 - 10.5 mg/dL [facility] Est Glomerular Filtration Rate 45(L) >=60 mL/min/1. 73 m?? [facility] [...] CHEMISTRY ORDERABL ES [facility] [place] [address] * Lipid Panel (Reflex Direct LDL) (08/28/2023 9:07 PM EDT) Cholesterol, Total 203 mg/dL [facility] Comment: Desirable: ? <200 mg/dL Borderline High: 200-239 mg/dL Higher: ?>bc=401 mg/dL Triglyceride 146 mg/dL [facility] Comment: Normal: ?<150 mg/dL Borderline High: 150-199 mg/dL High: ?200-499 mg/dL Very High: ? >vm=408 mg/dL HDL Cholesterol 52 mg/dL [facility] Comment: Females: High Risk: <50 mg/dL Males: High Risk: <40 mg/dL LDL Cholesterol 122 mg/dL [facility] Comment: Desirable: ? <100 mg/dL Above Desirable: 100-129 mg/dL Borderline High: 130-159 mg/dL High: ?160-189 mg/dL Very High: ? >gq=933 mg/dL Lipid Interpretation See Note [facility] [...] ACC/AHA Guidelines (most recently Ysabel et al. [facility] 12/09/21): For individuals with atherosclerotic cardiovascular disease (ASCVD)or LDL >ot=850 mg/dL, use a high-intensity statin (40-80 mg [...] In Lab Felix Chapa MD CHEMISTRY ORDERABLES [facility] [place] [address] * COLONOSCOPY (07/07/2023 1:39 PM EDT) COLONOSCOPY [facility] Endoscopy Procedure Date: 07/07/2023 1:39 PM ? Patient Name: Indira Roque ? N: [id number] ? Date of : 1970 ? Age: 53 ? Order #: [id number] ? Instrument Name: [id number] ? Procedure: ? Colonoscopy Indications: ? Abdominal pain, Diarrhea Providers: ? Lashonda Villa MD, Royal ? Systjim, Mercedes Toledo, Bouchra Recinos MD: ? Medicines: [...] ? was evaluated using the BBPS ? (Wiseman Bowel Preparation Scale) ? with scores of: [...] Procedure Code(s): ? --- Professional --- ? 92919, Colonoscopy, flexible; with ? biopsy, single or multiple CPT copyright 2022 [employer]. All rights reserved. The codes documented in this report are preliminary and upon glass enamel mixer review may be revised to meet current [...] Documents on File Type Date Recorded Patient Lead Pressman Expl anation Advance Directives and Livin g [...] Status decision made by: Patient Care Teams Radiotelegraphist Relationship Specialty Start Date End Date Polo Pearce PA [address] [place] [address] PCP - General Internal Medicine 06/09/21
--- OUTSIDE RECORDS SUMMARY | 2024-01-24 21:05 | XMS_ITS | Encounter Summary ---
[place] [address] Care Team Providers Care Photo Intern Name Role Phone Polo Pearce Primary Care Provider [phone] Reason for Visit * Diagnostic Test (Routine) - Closed Specialty Diagnoses / Procedures Referred By Jayant harris Referred To Contact Radiology Diagnoses Nausea without vomiting Early satiety Procedures NM Gastric Emptying Scan Mary Reyes EDGER SAW OPERATOR [facility] [place] [address] [place] [address] Referral ID Status Reason Start Date Expiration Date V isits Requested Visits Authorized [id number] Closed Specialty Service Requested 08/25/2023 02/23/2025 1 1 Encounter Details Date Type Department Care Team (Latest Contact Info) Description 10/21/2023 9:03 AM EDT - 10/21/2023 11:59 PM EDT Hospital En[place] [address] [place] [address] Discharge Disposition: Home Social History Tobacco Use [...] any time in the past 12 m [facility], were you homeless or living in [...] as needed. fluticasone propionate (FLONASE) 50 mcg/actuation [place]our[place]oy, Suspension 1 spray by Each Nare route [...] PM EST Office Visit Cardiology at [address] [place] [phone] Jaspreet Kinsey MD [facility] [place] [address] documented as of this encounter Procedures Procedure Name Priority Date/Time Associated Diagnosis Comments NM GASTRIC EMPTYING SCAN Routine 10/21/2023 1:54 PM EDT Nausea without vomiting Early satiety documented in this encounter Results * NM Gastric Emptying Scan (10/21/2023 1:54 PM EDT) WORKSTATION ID [id number] RAD Anatomical Region Laterality Modality Nuclear Medicine [...] questions please contact the health career services assistant that requested your imaging first. ? Electronically signed by: Humberto Qureshi MD, [facility] ([phone]), at 10/21/2023 5:16 PM Narrative 10/21/2023 5:16 [...] have questions please contactthe health career services assistant that requested your imaging first. Electronically signed by: Humberto Qureshi MD, [facility]([phone]), at 10/21/2023 5:16 PM Mary Reyes EDGER SAW OPERATOR IMG NM ORDERABLES documented in this encounter Visit Diagnoses Not on filedocumented in this encounter Care Teams Photo Intern Relationship Specialty Start Date End Date Polo Pearce PA [address] [place] [address] PCP - General Internal Medicine 06/09/21 documented as of this encounter
--- OUTSIDE RECORDS SUMMARY | 2024-01-24 21:05 | XMS_ITS | Encounter Summary ---
Author Organization [facility] [place] [address] Care Team Providers Care Stopper Grinder Name Role Phone Polo Perace Primary Care Provider [phone] Reason for Visit * Reason Onset Date Comments Advice Only 01/24/2024 Encounter Details Date Type Department Care Team (Late st Contact Info) Description 01/24/2024 Telephone Cardiology at [address] [phone] Osvaldo Padilla APRN [facility] [place] [address] Advice Only Social History Tobacco Use Types Packs/Day Years [...] any time in the past 12 m [facility], were you homeless or living in a [facility] (including now)? No 08/30/2023 IPV Inpatient Questions [...] encounter Miscellaneous Notes * Telephone Encounter - Osvaldo Padilla, ROM - 01/24/2024 4:16 PM EST Images from the original note were not included. 01/24/2024 Indira Roque Initial Contact Date: 01/24/2024 Initial contact time: 4:17 PM Referring Provider: Dr. Rodriguez Patient Location: [facility] Past Medical History: MINOCA HFpEF Obstructive sleep apnea Obesity Dyslipidemia SVT PAF Endometriosis Asthma Status post SMA stent Presenting Symptoms per OSH: Patient is a 53-year-old with the above-mentioned past medical history who presented to [facility] emergency department after experiencing recurrent chest pain through the weekend that radiated to her jaw.She did take sublingual nitroglycerin with some relief but the pain did not completely resolve. Her troponin levels at [facility] are elevated but not nearly at the level she has been in the past, troponinof 395 and 1 hour later 342. She has been given aspirin 325 mg x 1. Her chest pain occurred at restand was worse with movement, associated with dyspnea on exertion and a heartburn sensation. Reportedly her weight is down to 97.5 kg (discharge weight in September 2023 was 101.2 kg). Blood pressure is 104/57 and heart rate is running in the low 50s. Requesting consult for next steps. Pertinent Diagnostic Findings: ECG obtained shows a heart rate of 54 bpm sinus bradycardia with nonspecific T wave changes that are similar to her prior tracings in September 2023 Past cardiac studies: Echo: August 2023 Interpretation Summary Left ventricle is normal in size. There is low normal global systolic function, with focal hypokinesis in the anteroseptum as ascribed. Right ventricle is not well visualized. No hemodynamically significant valve disease. Compared to prior studies over the past 6 months, there has been stable global LV systolic function, with oscillating regional function of the anterior wall. Stress PET: August 2023 Moderate-sized scar in the apical septum and anterior wall. LVEF fails to augment appropriately with vasodilator stress. Globally reduced coronary flow reserve which could be consistent with microvascular dysfunction. Cath: April 2023 with mild diffuse disease less than 25% stenosis in all vessels OSH Interventions: Aspirin 324 x 1 Plan: Reviewed the cardiology notes from Dr. Salazar and Dr. Kinsey with Dr. Rodriguez Her positive troponin levels at 395 (prior of over 600 in September 2023 and ~500 in April 2023) withdrop 50 points to 342, is more unusual so Dr. 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 Kinsey to whom she is well-known on February 10, 2024 Above recommendations were based on my discussion with Dr. Rodriguez; I have not personally interviewed or examined this patient. Advised to call the transfer center back with any changes in the patient condition. Osvaldo Padilla APRN Pager [phone] 01/24/2024 Access data collection (if consult) 1. provider completing request: OSVALDO PADILLA APRN 2. Requesting location: [facility] 3. [id number]-[id number] consult duration: 22 min 4. Total consult duration (above plus EHR review, image review, discussion with other clinicians, documentation, etc.): 46 min 5. Consult for: [x] medical advice [] operational/administrative consult (for example--retrieve information from [facility] or need to schedule/change an appointment, etc) 6. Was this consult in lieu of transfer: No 7. Why did the hospital need a consult at this time: [] No access to cardiology at their hospital [x] Cardiology available some of the time but not now [] Cardiology is available but this case was beyond their local level of comfort [] I don't know documented in this encounter Plan of Treatment Upcoming Encounters Date Type Department Care Team (Late st Contact Info) Description 02/10/2024 1:00 PM EST Office Visit Cardiology at [address] [place] [phone] Jaspreet Kinsey MD [facility] [place] [address] documented as of this encounter Visit Diagnoses Not on filedocumented in this encounter Care Teams Stopper Grinder Relationship Specialty Start Date End Date Polo Pearce PA [address] [place] [address] PCP - General Internal Medicine 06/09/21 documented as of this encounter
--- OUTSIDE RECORDS SUMMARY | 2024-01-24 21:05 | XMS_ITS | Encounter Summary ---
Author Organization [facility] [place] [address] Care Team Providers Care Tooth Cutter Clutch Name Role Phone Polo Pearce Primary Care Provider [phone] Reason for Referral * Diagnostic Test (Routine) - Pending Review Specialty Diagnoses / Procedures Referred By Contac t Referred To Contact Radiology Procedures [place] [address] Referral ID Status Reason Start Date Expiration Date Visits Requested Visits Authorized [id number] Pending Review Specialty Service Requested 09/20/2023 03/22/2025 1 1 * Diagnostic Test (Routine) - Pending Review Specialty Diagnoses / Procedures Referred By Contac t Referred To Contact Radiology Procedures [place] [address] Referral ID Status Reason Start Date Expiration Date Visits Requested Visits Authorized [id number] Pending Review Specialty Service Requested 09/20/2023 03/22/2025 1 1 * Diagnostic Test (Routine) - Pending Review Specialty Diagnoses / Procedures Referred By Contac t Referred To Contact Radiology Procedures [place] [address] Referral ID Status Reason Start Date Expiration Date Visits Requested Visits Authorized [id number] Pending Review Specialty Service Requested 09/20/2023 03/22/2025 1 1 Encounter Details Date Type Department Care Team (Late st Contact Info) Description 09/20/2023 External [place] [address] Social History Tobacco Use Types Packs/Day Years [...] PM EST Office Visit Cardiology at [address] [place] [address] Jaspreet Kinsey MD [facility] [place] [address] documented as of this encounter Procedures Procedure [...] on filedocumented in this encounter Care Teams Tooth Cutter Clutch Relationship Specialty Start Date End Date Polo Pearce PA [address] [place] [address] PCP - General Internal Medicine 06/09/21 documented as of this encounter
--- OUTSIDE RECORDS SUMMARY | 2024-01-24 21:05 | XMS_ITS | Encounter Summary ---
Author Organization [facility] Address [facility] [place] [address] Care Team Providers Care Web Marketing Intern Name Role Phone Polo Pearce Primary Care Provider [phone] Reason for Visit * Reason Comments Congestive Heart Failure Encounter Details Date Type Department Care Team (Late st Contact Info) Description 10/26/2023 4:00 PM EDT Office Visit Cardiology at [address] [address] Jaspreet Kinsey MD [facility] [place] [address] Heart failure with preserved ejection fraction, unspecified HF chronicity; Paroxysmal atrial fibrillation Social History Tobacco Use Types Packs/Day Years [...] any time in the past 12 m [facility], were you homeless or living [...] Sign Reading Time Taken Comments Blood Pressure 102/64 10/26/2023 4:25 PM EDT Pulse 52 10/26/2023 4:25 PM EDT Temperature - - Respiratory Rate - - Oxygen Saturation - - Inhaled Oxygen Concentration - - Weight 100.7 kg (222 lb) 10/26/2023 4:25 PM EDT Height 162.6 cm (5' 4) 10/26/2023 4:25 PM EDT Body Mass Index 38.11 10/26/2023 4:25 PM EDT documented in this encounter Progress Notes * Jaspreet Kinsey MD - 10/26/2023 4:00 PM EDT Images from the original note were not included. Subjective: Patient ID: Indira Roque is a 53 y.o. female who presents on follow-up for: Chief Complaint Patient presents with Congestive Heart Failure HPI Last seen by me 07/2023, at which time no changes were made. Since then, she was admitted in September for volume overload/+ troponin. Her regimen was changed as is current. She has been doing quite well since then, being very diligent about sodium intake. She alsonotes these episodes comes about more frequently when she holds in stress/anger. She has a sprained ankle and this has been limiting activity; however, she is without angina nor untoward dyspnea. Will be working on losing weight. Current Outpatient Medications Medication Instructions albuterol (PROVENTIL HFA;VENTOLIN HFA) 90 mcg/Actuation inhaler 2 puffs, Inhalation, EVERY 4 HOURS PRN, Use with spacer apixaban (ELIQUIS) 5 mg, Oral, 2 TIMES DAILY atorvastatin (LIPITOR) 40 mg, Oral, EVERY EVENING DULoxetine DR (CYMBALTA) 60 mg, DAILY empagliflozin (JARDIANCE) 10 mg, Oral, DAILY fluticasone propionate (FLONASE) 50 mcg/actuation [place], Suspension 1 spray, Each Nare, PRN gabapentin (NEURONTIN) 600 mg, Oral, NIGHTLY loratadine (CLARITIN) 10 mg, Oral, DAILY PRN melatonin 10 mg, Oral, NIGHTLY metOLazone (ZAROXOLYN) 2.5 mg, Oral, PRN metoproloL tartrate (LOPRESSOR) 25 mg, Oral, 2 TIMES DAILY nitroGLYcerin (NITROSTAT) 0.4 mg, Sublingual, EVERY 5 MIN PRN omeprazole (PRILOSEC) 20 mg, Oral, DAILY potassium chloride (Klor-Con, K-Tab) 20 mEq ER tablet 2 tablets, Oral, 2 TIMES DAILY ranolazine ER (RANEXA) 1,000 mg, Oral, 2 TIMES DAILY rOPINIRole (REQUIP) 2 mg, Oral, 2 TIMES DAILY spironolactone (ALDACTONE) 25 mg, Oral, DAILY topiramate (TOPAMAX) 100 mg, Oral, NIGHTLY torsemide (DEMADEX) 20 mg, Oral, DAILY Ubrelvy 50 mg tablet TAKE ONE TABLET BY MOUTH ONCE A SINGLE DOSE , MAY REPEAT IN 2 HOURS AFTER FIRST DOSE IF NEEDED Patient Active Problem List Diagnosis (HFpEF) heart failure with preserved ejection fraction 05/2021: subacute, presented to [facility] with RUQ pain, weight gain, and [...] pattern 06/2023: Admission at [facility] ([facility]). 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 Gen: pleasant female in NAD Cor: rrr, s1/s2 of nl character and amplitude, no pathologic m/r/g. Estimated RAP not elevated. Carotids with normal upstroke without bruit. Pulm: CTAB. Normal diaphragmatic movement without use of accessory muscles Assessment and Plan: (HFpEF) heart failure with preserved ejection fraction No failure by history/exam. Remain rather uncertain about exact pathophysiology/pathoanatomy that has led to the multiple presentations. Reviewed that if episodes return, can consider referral to quaternary centre such as [facility]. I spent a fair duration re-reviewing the chart for possible further clues/insights, given this perplexing case. To a fair extent, it seems her presentations with severechest pain are at a similar time within a calendar month. She has a history of endometriosis (whichshe is s/p hysterectomy for). A metastasis of [...] possibility should still be entertained. Will ask metal bonding assembler contacts/colleagues regarding this prospect - torsemide 20 QD (presented with prerenal azotemia on 40 BID) - metolazone 2.5 QD PRN weight gain + increasing dyspnea - Jardiance 10 - aldactone 25 Paroxysmal atrial fibrillation Remains in NSR - Strategy: paroxysmal rate. Continue not on avnb - OAC: eliquis 5 bid (this is more so for history of PE) - Reversible Causes: obesity Future Appointments Date Time Provider Department Center 10/29/2023 10:00 AM [facility] 2 [facility] 10/29/2023 10:15 AM MOTILITY [facility] 2 [facility] GAS 4T [facility] 11/01/2023 5:00 PM Selene Browning, PhD [facility] GASTRO [facility] 11/22/2023 4:40 PM Porsha Mcdaniels MD [facility] CARD 4A [facility] 12/13/2023 10:[address] [facility] GASTRO [facility] 02/10/2024 1:00 PM Jaspreet Kinsey MD [facility] Jaspreet Kinsey MD documented in this encounter Miscellaneous Notes * Assessment & Plan Note - Jaspreet Kinsey MD - 10/28/2023 5:22 PM EDT Associated Problem(s): Paroxysmal atrial fibrillation Remains in NSR - Strategy: paroxysmal rate. Continue not on avnb - OAC: eliquis 5 bid (this is more so for history of PE) - Reversible Causes: obesity * Assessment & Plan Note - Jaspreet Kinsey MD - 10/28/2023 8:32 AM EDT Associated Problem(s): (HFpEF) heart failure with preserved ejection fraction No failure by history/exam. Remain rather uncertain about exact pathophysiology/pathoanatomy that has led to the multiple presentations. Reviewed that if episodes return, can consider referral to quaternary centre such as [facility]. I spent a fair duration re-reviewing the chart for possible further clues/insights, given this perplexing case. To a fair extent, it seems her presentations with severechest pain are at a similar time within a calendar month. She has a history of endometriosis (whichshe is s/p hysterectomy for). A metastasis of [...] possibility should still be entertained. Will ask metal bonding assembler contacts/colleagues regarding this prospect - torsemide 20 QD (presented with prerenal azotemia on 40 BID) - metolazone 2.5 QD PRN weight gain + increasing dyspnea - Jardiance 10 - aldactone 25 documented in this encounter Plan of Treatment Upcoming Encounters Date Type Department Care Team (Late st Contact Info) Description 02/10/2024 1:00 PM EST Office Visit Cardiology at [address] [address] Jaspreet Kinsey MD [facility] [place] [address] documented as of this encounter Visit Diagnoses Diagnosis Heart failure with preserved ejection fraction, unspecified HF chronicity Paroxysmal atrial fibrillation Atrial fibrillation documented in this encounter Care Teams Web Marketing Intern Relationship Specialty Start Date End Date Polo Pearce PA [address] [place] [address] PCP - General Internal Medicine 06/09/21 documented as of this encounter
--- OUTSIDE RECORDS SUMMARY | 2024-01-24 21:05 | XMS_ITS | Encounter Summary ---
Author Organization [facility] Address [facility] [place] [address] Care Team Providers Care Sounding Device Operator Name Role Phone Polo Pearce Primary Care Provider [phone] Encounter Details Date Type Department Care Team [...] PM EST Office Visit Cardiology at [address] [place] [phone] Jaspreet Kinsey MD [facility] [address] documented as of this encounter Visit Diagnoses Not on filedocumented in this encounter Care Teams Sounding Device Operator Relationship Specialty Start Date End Date Polo Pearce PA [address] [place] [address] PCP - General Internal Medicine 06/09/21 documented as of this encounter
--- OUTSIDE RECORDS SUMMARY | 2024-01-24 21:05 | XMS_ITS | Encounter Summary ---
Author Organization [facility] Address [facility] [place] [address] Care Team Providers Care Hand Molder And Caster Name Role Phone Polo Pearce Primary Care Provider [phone] Encounter Details Date Type Department Care Team [...] PM EST Office Visit Cardiology at [address] [place] [phone] Jaspreet Kinsey MD [facility] [place] [address] documented as of this encounter Visit Diagnoses Not on filedocumented in this encounter Care Teams Hand Molder And Caster Relationship Specialty Start Date End Date Polo Pearce PA [address] [place] [address] PCP - General Internal Medicine 06/09/21 documented as of this encounter
--- OUTSIDE RECORDS SUMMARY | 2024-01-24 21:05 | XMS_ITS | Encounter Summary ---
Author Organization [facility] [place] [address] Care Team Providers Care Router Operator Name Role Phone Polo Pearce Primary Care Provider [phone] Reason for Referral * Diagnostic Test (Routine) - Pending Review Specialty Diagnoses / Procedures Referred By Jayant harris Referred To Contact Diagnoses Mesenteric ischemia Procedures Duplex Study Visceral Arteries, Comp Thiago Way MD [facility] [place] [address] [facility] [address], [place] [address] Referral ID Status Reason Start Date Expiration Date Visits Requested Visits Authorized [id number] Pending Review Specialty Service Requested 10/08/2023 10/07/2024 1 1 Encounter Details Date Type Department Care Team (Late st Contact Info) Description 10/08/2023 9:30 AM EDT Office [place] [address] MD [facility] [place] [address] Mesenteric ischemia (Primary Dx) Social History Tobacco Use Types Packs/Day Years Used Date Smoking Tobacco: Never Smokeless Tobacco: Never Alcohol Use Standard Drinks/Week Comments Never 0 (1 standard drink = 0.6 oz pur e alcohol) [facility] Utilities Answer Date Recorded In the [...] in the past 12 m [facility], were you homeless or living [...] bloating who underwent an SMA stent with co back in July 01. Upon returning today [...] , Rfl: fluticasone propionate (FLONASE) 50 mcg/actuation [place], Suspension, 1 spray by Each Nare route [...] Text Report Department: Vascular Surgery Lab Patient: [id number] (LOIDA ROQUE) CPT: 94150 Referring Physician: HARJEET PICKENS Phone: Indications: s/p [...] within mesenteric artery stents may differ from rosebud arteries, with thresholds for diagnosis of significant stenosis likely being somewhat higher in stented arteries than rosebud.% To date, there is no evidence based consensus of stent velocity criteria. Therefore, the current interpretation is based on rosebud artery thresholds. Previous Celiac/Mesenteric Studies: Date SMA PSV EDV Celiac PSV EDV 427 91 267 31 1640/04/29 289 27 018 89 8039/05/28 316 39 100 22 Current Exam 289 [...] PM EST Office Visit Cardiology at [address] [place] [phone] Jaspreet Kinsey MD [facility] [place] [address] documented as of this encounter Visit Diagnoses Diagnosis Mesenteric ischemia- Primary Unspecified vascular insufficiency of intestine documented in this encounter Care Teams Router Operator Relationship Specialty Start Date End Date Polo Pearce PA [address] [place] [address] PCP - General Internal Medicine 06/09/21 documented as of this encounter
--- OUTSIDE RECORDS SUMMARY | 2024-01-24 21:05 | XMS_ITS | Encounter Summary ---
Author Organization [facility] Address [facility] [place] [address] Care Team Providers Care Biomedical Analytical Scientist Name Role Phone Polo Pearce Primary Care Provider [phone] Encounter Details Date Type Department Care Team [...] PM EST Office Visit Cardiology at [address] [place] [phone] Jaspreet Kinsey MD [facility] [place] [address] documented as of this encounter Visit Diagnoses Not on filedocumented in this encounter Care Teams Biomedical Analytical Scientist Relationship Specialty Start Date End Date Polo Pearce PA [address] [place] [address] PCP - General Internal Medicine 06/09/21 documented as of this encounter
--- OUTSIDE RECORDS SUMMARY | 2024-01-24 21:05 | XMS_ITS | Encounter Summary ---
Author Organization [facility] [place] [address] Care Team Providers Care Boiler Control Room Operator Name Role Phone Polo Pearce Primary Care Provider [phone] Reason for Visit * Diagnostic Test (Routine) - Closed Specialty Diagnoses / Procedures Referred By Jayant harris Referred To Contact Diagnoses Mesenteric ischemia Procedures Duplex Study Visceral Arteries, Colette Boucher APRN [facility] [place] [place] [address] [facility] Vascular Lab [address] [address] Referral ID Status Reason Start Date Expiration Date V isits Requested Visits Authorized [id number] Closed Specialty Service Requested 06/28/2023 06/27/2024 1 1 Encounter Details Date Type Department Care Team (Late st Contact Info) Description 10/08/2023 8:30 AM EDT Tech [place] [address] [address] [place] Mesenteric ischemia Social History Tobacco Use Types Packs/Day Years Used Date Smoking Tobacco: Never Smokeless Tobacco: Never Alcohol Use Standard Drinks/Week Comments Never 0 (1 standard drink = 0.6 oz pur e alcohol) [facility] Utilities Answer Date Recorded In the past 12 months has [employer], oil, or water [employer] threatened to shut off services in your [...] PM EST Office Visit Cardiology at [address] [place] [address] [facility] [place] [place] [address] documented as of this encounter Procedures Procedure Name Priority Date/Time Associated Diagnosis Comments MESENTERIC COMPLETE Routine 10/08/2023 8 :22 AM EDT Mesenteric ischemia documented in this encounter Results * Duplex Study Visceral Arteries, Comp (10/08/2023 8:22 AM EDT) VB Text Report Department: Vascular Surgery Lab Patient: [id number] (LOIDA ROQUE) CPT: [id number] Referring Physician: JUDITH PICKENS ?? Phone: Indications: [...] within mesenteric artery stents may differ from nome arteries, with thresholds for diagnosis of significant stenosis likely being somewhat higher in stented arteries than nome.% To date, there is no evidence based consensus of stent velocity criteria. Therefore, the current interpretation is based on nome artery thresholds. Previous Celiac/Mesenteric Studies: Date ? [...] VASCUBASE 10/08/2023 8:22 AM EDT Judith Pickens [employer]INE [employer] VASCULAR ORDERABLES VASCUBASE documented in this encounter Visit Diagnoses Diagnosis Mesenteric ischemia Unspecified vascular insufficiency of intestine documented in this encounter Care Teams Boiler Control Room Operator Relationship Specialty Start Date End Date Polo Pearce PA [address] [place] [address] PCP - General Internal Medicine 06/09/21 documented as of this encounter
--- OUTSIDE RECORDS SUMMARY | 2024-01-24 21:05 | XMS_ITS | Encounter Summary ---
Author Organization [facility] Address [facility] [place] [address] Care Team Providers Care Labor Crew Supervisor Name Role Phone Polo Pearce Primary Care Provider [phone] Encounter Details Date Type Department Care Team (Latest Contact Info) Description 11/22/2023 Travel Social History Tobacco Use Types Packs/Day Years Used Date Smoking Tobacco: Never Smokeless Tobacco: Never Alcohol Use Standard Drinks/Week Comments Never 0 (1 standard drink = 0.6 oz pur e alcohol) [facility] Utilities Answer Date Recorded In the [...] PM EST Office Visit Cardiology at [address] [place] [phone] Jaspreet Kinsey MD [facility] [place] [address] documented as of this encounter Visit Diagnoses Not on filedocumented in this encounter Care Teams Labor Crew Supervisor Relationship Specialty Start Date End Date Polo Pearce PA [address] [place] [address] PCP - General Internal Medicine 06/09/21 documented as of this encounter
--- OUTSIDE RECORDS SUMMARY | 2024-01-24 21:05 | XMS_ITS | Encounter Summary ---
[place] [address] Care Team Providers Care Assistant District Attorney Name Role Phone Polo Pearce Primary Care Provider [phone] Reason for Visit * Diagnostic Test (Routine) - Closed Specialty Diagnoses / Procedures Referred By Jayant harris Referred To Contact Radiology Diagnoses Nausea without vomiting Early satiety Procedures NM Gastric Emptying Scan Mary Reyes MATERIAL CONTROL SPECIALIST [facility] [address] [place] [address] Referral ID Status Reason Start Date Expiration Date V isits Requested Visits Authorized [id number] Closed Specialty Service Requested 08/25/2023 02/23/2025 1 1 Encounter Details Date Type Department Care Team (Latest Contact Info) Description 10/21/2023 9:03 AM EDT - 10/21/2023 11:59 PM EDT Hospital Encounter [place] [address] [place] [address] Discharge Disposition: Home Social History Tobacco Use [...] as needed. fluticasone propionate (FLONASE) 50 mcg/actuation [place], Suspension 1 spray by Each Nare route [...] PM EST Office Visit Cardiology at [address] [place] [phone] Jaspreet Kinsey MD [facility] [place] [address] documented as of this encounter Procedures Procedure Name Priority Date/Time Associated Diagnosis Comments NM GASTRIC EMPTYING SCAN Routine 10/21/2023 1:54 PM EDT Nausea without vomiting Early satiety documented in this encounter Results * NM Gastric Emptying Scan (10/21/2023 1:54 PM EDT) WORKSTATION ID [id number] RAD Anatomical Region Laterality Modality Nuclear Medicine [...] who have questions please contact the health pet care technician that requested your imaging first. ? Electronically signed by: Humberto Qureshi MD, [facility] ([phone]), at 10/21/2023 5:16 PM Narrative 10/21/2023 5:16 [...] patients who have questions please contactthe health pet care technician that requested your imaging first. Electronically signed by: Humberto Qureshi MD, [facility]([phone]), at 10/21/2023 5:16 PM Mary Reyes MATERIAL CONTROL SPECIALIST IMG NM ORDERABLES documented in this encounter Visit Diagnoses Not on filedocumented in this encounter Care Teams Assistant District Attorney Relationship Specialty Start Date End Date Polo Pearce PA [address] [place] [address] PCP - General Internal Medicine 06/09/21 documented as of this encounter
--- OUTSIDE RECORDS SUMMARY | 2024-01-24 21:05 | XMS_ITS | Encounter Summary ---
Author Organization [facility] [place] [address] Care Team Providers Care Tutoring Clinician Name Role Phone Polo Pearce Primary Care Provider [phone] Reason for Visit * Consultation (Routine) - Closed Specialty Diagnoses / Procedures Referred By Jayant t Referred To Contact Gastroenterology Diagnoses Altered bowel function Depression, unspecified depression type Mary Reyes, ROM [facility] [place] [address] Olive Frazier, PhD [facility] [place] [address] Referral ID Status Reason Start Date Expiration Date V isits Requested Visits Authorized [id number] Closed Consult, Test & Treat 08/25/2023 08/24/2024 1 1 Encounter Details Date Type Department Care Team (Late st Contact Info) Description 11/29/2023 1:00 PM EDT Office Visit [place] [address] Selene Browning, PhD [facility] [place] [address] Moderate episode of recurrent major depressive disorder; [...] Browning, PhD - 11/29/2023 1:00 PM EDT [facility] Dig[facility] Behavioral Medicine Groups (all virtual) The below groups are designed to help you improve the brain-gut connection and/or manage GI or weight-related concerns. If you'd like to learn more about the brain-gut connection and our services, please visit the [facility] GI Behavioral health website at: [email or web address]. Our hope is that through these classes, [...] workshop: Wednesday from 3:30pm-5:00pm On December 06 (Leader:Tza) Trauma & GI Conditions Goal: Understand the [...] please contact your insurance company or the [facility] billing office ([email or web address]). Your insurance company may request a CPT code if you ask about coverage. Most of our groups use the CPT code 70223, though a few use 17876/76491. Feel free to reach out if your insurance company covers one of these codes, but not the other. If you're interested in attending any of these groups, please reach out to our scheduling team via [facility] or phone ([phone]). documented in this encounter Progress Notes * Selene Browning, PhD - 11/29/2023 1:00 PM EDT Images from the original note were not included. [facility] Department of Medicine, Section of Gastroenterology [...] who presents for behavioral health assessment in [facility], Section of Gastroenterology & Hepatology. Today, [...] or medication): No. Local neurologist (Luiza hutchinson [facility] in [place]) prescribes Cymbalta, has been taking >10 years. 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 [...] PM EST Office Visit Cardiology at [address] [place] [id number] Jaspreet Kinsey MD [facility] [place] [address] Scheduled Referrals Name Type Priority Associated Diagnoses Orde r Schedule Amb [facility] Outpatient Referral Routine Altered bowel function Depression, unspecified depression type Ordered: 08/25/2023 documented as of this encounter Visit Diagnoses Diagnosis 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
--- OUTSIDE RECORDS SUMMARY | 2024-01-24 21:06 | XMS_ITS | Encounter Summary ---
Author Organization [facility] Address [facility] [place] [address] Care Team Providers Care Medical Record Librarians Teacher Name Role Phone Polo Pearce Primary Care Provider [phone] Encounter Details Date Type Department Care Team (Late st Contact Info) Description 08/28/2023 1:05 PM EDT Ancillary Procedure Radiology Library at [facility] [place] [address] Jaspreet Kinsey MD [facility] [place] [address] Social History Tobacco Use Types Packs/Day Years Used Date Smoking Tobacco: Never Smokeless Tobacco: Never Alcohol Use Standard Drinks/Week Comments Never 0 (1 standard drink = 0.6 oz pur e alcohol) [facility] Utilities Answer Date Recorded In the past 12 months has [employer] electric, gas, oil, or water [employer] threatened to shut off services in your [...] in a long-term (including now)? No 06/15/2023 IPV Inpatient Questions [...] PM EST Office Visit Cardiology at [address] [address] Jaspreet Kinsey MD [facility] [place] [address] documented as of this encounter Procedures Procedure [...] MD IMG FILM LIBRARY ORD ERABLES DH [place], [place] documented in this encounter Visit Diagnoses Not on filedocumented in this encounter Care Teams Medical Record Librarians Teacher Relationship Specialty Start Date End Date Polo Pearce PA [address] [place] [address] PCP - General Internal Medicine 06/09/21 documented as of this encounter
--- OUTSIDE RECORDS SUMMARY | 2024-01-24 21:06 | XMS_ITS | Encounter Summary ---
[place] [address] Care Team Providers Care Senior Mechanical Project Manager Name Role Phone Polo Pearce Primary Care Provider [phone] Reason for Visit * Auth/Cert (Routine) Specialty Diagnoses / Procedures Referred By Contac t Referred To Contact Diagnoses NSTEMI (non-ST elevated myocardial infarction) NSTEMI Procedures EMERGENCY MICHELLEI [place] [address] [facility] Referral ID Status Reason Start Date Expiration Date Visits Re quested Visits Authorized [id number] 1 1 Encounter Details Date Type Department Care Team (Late st Contact Info) Description 08/25/2023 12:55 PM EDT Laboratory Appointment Lab [address] [place] [address] Social History Tobacco Use Types Packs/Day Years [...] PM EST Office Visit Cardiology at [address] [place] [address] Jaspreet Kinsey MD [facility] [place] [address] documented as of this encounter Visit Diagnoses Not on filedocumented in this encounter Care Teams Senior Mechanical Project Manager Relationship Specialty Start Date End Date Polo Pearce PA [address] [place] [address] PCP - General Internal Medicine 06/09/21 documented as of this encounter
--- OUTSIDE RECORDS SUMMARY | 2024-01-24 21:06 | XMS_ITS | Encounter Summary ---
Author Organization [facility] Address [facility] [place] [address] Care Team Providers Care [employer]obile [employer] Membership Sales Agent Name Role Phone Polo Pearce Primary Care Provider [phone] Encounter Details Date Type Department Care Team [...] th e electric, gas, oil, or water [employer] threatened to shut off services in your [...] PM EST Office Visit Cardiology at [address] [place] [address] Jaspreet Kinsey MD [facility] [address] documented as of this encounter Visit Diagnoses Not on filedocumented in this encounter Care Teams Automobile Club Membership Sales Agent Relationship Specialty Start Date End Date Polo Pearce PA [address] [place] [address] PCP - General Internal Medicine 06/09/21 documented as of this encounter
--- OUTSIDE RECORDS SUMMARY | 2024-01-24 21:06 | XMS_ITS | Encounter Summary ---
[place] [address] Care Team Providers Care Tone Cabinet Assembler Name Role Phone Polo Pearce Primary Care Provider [phone] Reason for Visit * Auth/Cert (Routine) Specialty Diagnoses / Procedures Referred By Contac t Referred To Contact Diagnoses NSTEMI (non-ST elevated myocardial infarction) NSTEMI Procedures EMERGENCY [place] [address] [facility] Referral ID Status Reason Start Date Expiration Date Visits Re quested Visits Authorized [id number] 1 1 Encounter Details Date Type Department Care Team (Latest Contact Info) Description 08/25/2023 1:05 PM EDT Laboratory Appointment Lab [address] [place] [address] Heart failure with preserved ejection fraction, unspecified [...] Recorded In the past 12 months has [employer], gas, oil, or water company threatened to [...] PM EST Office Visit Cardiology at [address] [place] [address] Jaspreet Kinsey MD [facility] [place] [address] documented as of this encounter Procedures Procedure [...] unspecified HF chronicity HC DNA AB DS ([place]) Routine 08/25/2023 11:28 AM EDT Heart failure [...] EDT) IgA 372 70 - 400 mg/dL [facility] Blood 08/25/2023 11:2 8 AM EDT 08/25/2023 11:37 AM EDT Narrative Resulting Agency Comment Spec In Lab Mary Gray Amy RANGELN CHEMISTRY ORDERABL ES Performing Organization Address [facility] Co de Phone Number [facility] [place] [address] * IgG (08/25/2023 11:28 AM EDT) Immunoglobulin G 1,114 700 - 1,600 mg/dL [facility] Comment: Pediatric Reference Intervals obtained from the Caliper Reference Interval project. http://www.[email or web address].ca/caliperproject/index.html Blood 08/25/2023 11:2 8 AM EDT 08/25/2023 11:37 AM EDT Narrative Resulting Agency Comment Spec In Lab Mary Gray Amy RANGELN CHEMISTRY ORDERABL ES Performing Organization Address [facility] Co de Phone Number [facility] [place] [address] * Tissue transglutaminase, IgA (08/25/2023 11:28 AM EDT) TTG IgA Ab 0.6 <=10.0 u/ml [facility] Comment: Negative: ??<7 units/mL Indeterminate: 7-10 units/mL Positive: ??>10 units/mL Blood 08/25/2023 11:2 8 AM EDT 08/26/2023 7:26 AM EDT Narrative Resulting Agency Comment Spec In Lab Mary M Amy PLASTIC PRESS OPERATOR IMMUNOLOGY ORDERAB LES Performing Organization Address [facility] Co de Phone Number [facility] [place] [address] * (ABNORMAL) Basic Metabolic Panel (non-fasting) (08/25/2023 11:28 AM EDT) Glucose 111 65 - 199 mg/dL [facility] Comment:Diabetes: >=200 mg/d L plus symptoms Blood Urea Nitrogen 29(H) 8 - 18 mg/dL [facility] Carbon Dioxide 29 22 - 31 mmol/L [facility] Anion Gap 12 5 - 15 mmol/L [facility] Calcium 10.0 8.5 - 10.5 mg/dL [facility] Est Glomerular Filtration Rate 44(L) >=60 mL/min/1. 73 m?? [facility] [...] In Lab Lloyd Keating MD CHEMISTRY ORDERABLES [facility] [place] [address] * KATHRINE Antibody Screen (08/25/2023 11:28 AM EDT) KATHRINE Ab Screen Negative Negative [facility] Comment: This antinuclear antibody (KATHRINE) screen is a qualitative test performed using a fluoroenzyme immunoassay on the TerraLUXdia 250 analyzer. This screen is designed to detect antibodies to U1RNP, SS-A/Ro, SS-B/La, centromere B, Scl-70, Dasia-1, and Sm(Alcantar) proteins in serum samples. Antibodies to other nuclear antibodies will not be detected with this assay. This KATHRINE screen is also performed in concert with a quantitative for IgG antibodies to dsDNA. dsDNA Ab 1.0 <=15.0 IU/mL [facility] Comment: <10 negative 10-15 equivocal >15 positive This dsDNA antibody result was generated using a fluoroenzyme immunoassay on the TerraLUXdia 250 analyzer. This quantitative test is designed to detect IgG antibodies directed against double stranded DNA in human serum. The presence of antibodies that recognize dsDNA is a highly specific marker for systemic lupus erythematosus. Please note that as of 12/30/2021 that this testing is performed by the Special Chemistry Laboratory at [facility]. This change in testing location is associated with a change is testing method and reference intervals. Please review the results of this test in association with the posted reference intervals. Blood 08/25/2023 11:2 8 AM EDT 08/26/2023 7:26 AM EDT Narrative Resulting Agency Comment Spec In Lab Jaspreet Kinsey MD LAB SEND OUT ORDERAB LES [facility] [place] [address] * (ABNORMAL) Protein Electrophoresis, serum (08/25/2023 11:28 AM EDT) Total Prot Electrophoresis 7.5 6.1 - 8.0 g/dL [facility] Albumin Electrophoresis 4.62 3.20 - 5.20 g/dL [facility] Alpha 1 Globulin 0.20 0.10 - 0.30 g/dL [facility] Alpha 2 Globulin 0.92(H) 0.40 - 0.90 g/dL [facility] Beta Globulin 0.89 0.50 - 1.00 g/dL [facility] Gamma Globulin 0.88 0.50 - 1.30 g/dL [facility] M1 Band None Detected None Detected [facility] Blood 08/25/2023 11:2 8 AM EDT 08/25/2023 11:37 AM EDT Narrative Resulting Agency Comment Spec In Lab Jaspreet Kinsey MD CHEMISTRY ORDERABLES Performing Organization Address City/[facility]/ZIP Co de Phone Number [facility] [place] [address] * (ABNORMAL) Free Light Chains, Serum (08/25/2023 11:28 AM EDT) [place] Free Light Chain 3.09(H) 0.72 - 2.75 mg/dL [facility] Lambda Free Light Chain 1.65 0.57 - 2.15 mg/dL [facility] [place]/Lambda FLC Ratio 1.8727 0.4000 - 2.5800 [facility] Blood 08/25/2023 11:2 8 AM EDT 08/25/2023 11:36 AM EDT Narrative Resulting Agency Comment Spec In Lab Jaspreet Kinsey MD CHEMISTRY ORDERABLES Performing Organization Address [facility] Co de Phone Number [facility] [place] [address] * Iron and TIBC (08/25/2023 11:28 AM EDT) Iron 113 30 - 150 mcg/dL [facility] TIBC 338 250 - 450 mcg/dL [facility] Iron Saturation 33 20 - 50 % [facility] Blood 08/25/2023 11:2 8 AM EDT 08/25/2023 11:36 AM EDT Narrative Resulting Agency Comment Spec In Lab Jaspreet Kinsey MD CHEMISTRY ORDERABLES Performing Organization Address City/[facility]/ZIP Co de Phone Number [facility] [place] [address] * Ferritin (08/25/2023 11:28 AM EDT) Pathologist [facility] Ferritin 110 11 - 328 ng/mL [facility] Comment: Please note that as of 02/10/2023, the reference intervals for Ferritin have been updated. Blood 08/25/2023 11:2 8 AM EDT 08/25/2023 11:37 AM EDT Narrative Resulting Agency Comment Spec In Lab Jaspreet Kinsey MD CHEMISTRY ORDERABLES Performing Organization Address [facility] Co de Phone Number [facility] [place] [address] * Lyme IgG & IgM Antibody (08/25/2023 11:28 AM EDT) [facility] Lyme Antibody Negative Negative [facility] Lyme Ab Comment Negative result does not exclude possibility of infection. [facility] Comment: Please note that as of 07/14/2022 that this testing is performed by the Special Chemistry Laboratory at [facility]. This change in testing location is associated with a change in testing methodology. Blood 08/25/2023 11:2 8 AM EDT 08/26/2023 7:26 AM EDT Narrative Resulting Agency Comment Spec In Lab Jaspreet Kinsey MD IMMUNOLOGY ORDERABLE S Performing Organization Address [facility] Co de Phone Number [facility] [place] [address] * Streptococcal Antibody Panel (08/25/2023 11:28 AM EDT) Pathologist [facility] Aso Titer (JULY) 25 0 - 530 IU/mL [facility] Comment: Test Performed by: [facility] [place] [address] Collar Setter Overlock: Nellie Haney Ph.D.; CLIA# [id number] Dnase B Ab (JULY) 146 0 - 300 unit/mL [facility] Comment: Test Performed by: [facility] [place] [id number] Collar Setter Overlock: Nellie Haney Ph.D.; CLIA# [id number] Blood 08/25/2023 11:2 8 AM EDT 08/25/2023 1:02 PM EDT Narrative Resulting Agency Comment Spec In Lab Jaspreet Kinsey MD LAB SEND OUT ORDERAB LES [facility] [place] [address] documented in this encounter Visit Diagnoses Diagnosis Heart failure with preserved ejection fraction, unspecified HF chronicity Chronic kidney disease, unspecified CKD stage Altered bowel function Other symptoms involving digestive system Depression, unspecified depression type documented in this encounter Care Teams Tone Cabinet Assembler Relationship Specialty Start Date End Date Polo Pearce PA [address] [place] [address] PCP - General Internal Medicine 06/09/21 documented as of this encounter
--- OUTSIDE RECORDS SUMMARY | 2024-01-24 21:06 | XMS_ITS | Encounter Summary ---
[place] [address] Care Team Providers Care Land Use Planner Name Role Phone Polo Pearce Primary Care Provider [phone] Reason for Referral * Consultation (Routine) - Authorized Specialty Diagnoses / Procedures Referred By Jayant harris Referred To Contact Cardiology Diagnoses NSTEMI (non-ST elevated myocardial infarction) Lloyd Keating MD [facility] [place] [address] [address] [place] [address] Referral ID Status Reason Start Date Expiration Date Visits Requested Visits Authorized [id number] Authorized Consult, Test & Treat Non PCP 09/10/2023 2024 36 36 Reason for Visit * Auth/Cert (Routine) Specialty Diagnoses / Procedures Referred By Contjulita t Referred To Contact Diagnoses NSTEMI (non-ST elevated myocardial infarction) NSTEMI Procedures EMERGENCY MICHELLEI Archie Mcmanus MD [facility] [place] [address] [facility] Referral ID Status Reason Start Date Expiration Date Visits Re quested Visits Authorized [id number] 1 1 Encounter Details Date Type Department Care Team (Latest Contact Info) Description 08/28/2023 8:27 PM EDT - 09/10/2023 5:31 PM EDT Hospital Encounter Heart and Vascular Unit Level 3 Wing B at [place] [phone] Kia Angelo MD [facility] [place] [address] [place] [address] Eufemia Copeland MD [facility] [place] [address] [place] [address] Samantha Broussard MD Kussaga, Frank M, [place] [address] Paresthesia of hand, bilateral; SVT (supraventricular tachycardia); [...] has e electric, gas, oil, or water [employer] threatened to shut off services in your [...] time in the past 12 m [facility], were you homeless or living in a [...] Patient Age: 53 y.o. Language: Citizen Of [place] Race: White Ethnicity: Not nor Admit date: [...] please contact your inpatient physician through the [facility] Food General Manager . Issues afterhours and on weekends [...] 09/05/2023 4:25 PM) Result Value WORKSTATION ID [id number] Narrative EXAMINATION: CTA/CT ABDOMEN AND PELVIS W [...] who have questions please contact the health caretaker grounds that requested your imaging first. Electronically signed by: Lalitha Sanders MD, [facility] ([phone]), at 09/06/2023 9:47 AM TTE 08/29/23 Interpretation [...] treatment for possible ACS, and transfer to [facility] for further management. Prior to transfer, patient [...] Administered Date(s) Administered Moderna Covid-19 Monovalent 12Yr+ (Fitness Services Manager 100mcg) 03/06/2020, 04/03/2020 Discharge Medications: Your [...] weight gain + increasing shortness of breath. [id number] minutes prior to a dose of torsemide). [...] of 8AM-5PM please call the Cardiology Clinic [phone] to speak with a nurse. All other hours please call the Hospital Food General Manager [phone] and ask to speak to the cardiovascular hospitalist on-call. Follow up Appointments: Doctor Where Phone # Date Time PCP JOCY Franco Dr [address] [place], [place] [address] Please call to set up a follow up appointment. Cardiology Jaspreet Kinsey MD Cardiology at [place] Arrive at: [facility] [address] [phone] 10/26/2023 4:00 PM General Instructions None Future Appointments and Orders Future Appointments and Orders Future Appointments Provider Department Dept Phone 10/21/2023 10:30 AM [facility] ROOM 1 Nuclear Medicine at [facility] Arrive at: [facility] RADIOLOGY [phone] Please do not eat or drink anything for at least 6 hours prior to your appointment. 10/21/2023 11:30 AM [facility] ROOM 1 Nuclear Medicine at [facility] Arrive at: [facility] RADIOLOGY [phone] Please do not eat or drink anything for at least 6 hours prior to your appointment. 10/21/2023 12:30 PM [facility] ROOM 1 Nuclear Medicine at [facility] Arrive at: [facility] RADIOLOGY [phone] Please do not eat or drink anything for at least 6 hours prior to your appointment. 10/21/2023 1:30 PM [facility] ROOM 1 Nuclear Medicine at [facility] Arrive at: [facility] RADIOLOGY [phone] Please do not eat or drink anything for at least 6 hours prior to your appointment. 10/21/2023 2:30 PM [facility] ROOM 1 Nuclear Medicine at [facility] Arrive at: [facility] RADIOLOGY [phone] Please do not eat or drink anything for at least 6 hours prior to your appointment. 10/26/2023 4:00 PM Jaspreet Kinsey MD Cardiology at [place] Arrive at: [facility] [address] [phone] 10/28/2023 9:00 AM [facility] 2 Gastroenterology at [facility] Arrive at: [facility] Area 4T [phone] 10/29/2023 10:00 AM [facility] 2 Gastroenterology at [facility] Arrive at: [facility] 4T [phone] 10/29/2023 10:15 AM [facility] 2 Gastroenterology at [facility] Arrive at: [facility] 4T [phone] 11/22/2023 4:40 PM Porsha Mcdaniels MD Cardiology at [facility] Arrive at: [facility] 4A [phone] 12/13/2023 10:[address] Gastroenterology at [facility] Arrive at: [facility] 4L [phone] Discharge References/Attachments None Greater than 30 minutes was spent on this discharge including documentation, [id number] time withthe patient, patient education, patient transport orderly, coordination with pharmacy and other patient [...] of 8AM-5PM please call the Cardiology Clinic [phone] to speak with a nurse. All other hours please call the Hospital Food General Manager [phone] and ask to speak to the cardiovascular hospitalist on-call. Follow up Appointments: Doctor Where Phone # Date Time PCP JOCY Franco [address] Jaydon Arellano [address] [place] [address] [phone] Please call to set up a follow up appointment. Cardiology Jaspreet Kinsey MD Cardiology at [place] Arrive at: [facility] [address] [phone] 10/26/2023 4:00 PM documented in this encounter [...] as needed. fluticasone propionate (FLONASE) 50 mcg/actuation [place], Suspension 1 spray by Each Nare route [...] 2 times daily. 180 tablet 07/14/2023 10/28/2023 potassium chloride ER (Klor-Con M) 20 mEq ER micro-encapsulated crystal tablet Take 2 tablets by mouth daily for 30 days. 60 tablet 09/10/2023 10/10/2023 metOLazone (Zaroxolyn) 2.5 mg tablet Take 1 [...] note were not included. Heart and Vascular [place] Cardiovascular Medicine CV HOSPITALIST 1 - [facility] DAILY PROGRESS NOTE Page [phone] to reach a provider 28/09 Admit Date: [...] hest pain, found to have transferred to [facility] for further management of NSTEMI. Patient found [...] ointment Diet: Daily Healthy Menu Choices/Cardiac diet ([facility]-Diet) DVT Prophylaxis: DOAC Code status: Attempt Cardiopulmonary Resuscitation - Inpatient Disposition: Discharge Location: AM-[facility] Basic Mobility Raw Score: 19 PT: OT: PCP JOCY Franco [phone] Lloyd Keatnig MD 09/09/2023 * Florencia Ortez RN - [...] Center Cardiovascular Medicine CV HOSPITALIST 1 - [facility] DAILY PROGRESS NOTE Page [phone] to reach a provider 28/09 Admit Date: [...] hest pain, found to have transferred to [facility] for further management of NSTEMI. Patient found [...] ointment Diet: Daily Healthy Menu Choices/Cardiac diet ([facility]-Diet) DVT Prophylaxis: DOAC Code status: Attempt Cardiopulmonary Resuscitation - Inpatient Disposition: Discharge Location: AM-[facility] Basic Mobility Raw Score: 24 PT: OT: PCP JOCY Franco [phone] Lloyd Keating MD 09/08/2023 * Edith [place] [...] Center Cardiovascular Medicine CV HOSPITALIST 1 - [facility] DAILY PROGRESS NOTE Page [phone] to reach a provider 28/09 Admit Date: [...] hest pain, found to have transferred to [facility] for further management of NSTEMI. Patient found [...] ointment Diet: Daily Healthy Menu Choices/Cardiac diet ([facility]-Diet) DVT Prophylaxis: DOAC Code status: Attempt Cardiopulmonary Resuscitation - Inpatient Disposition: Discharge Location: [facility] Basic Mobility Raw Score: 24 PT: OT: PCP JOCY Franco [phone] Lloyd Keating MD 09/07/2023 * Dona Hanks [...] Center Cardiovascular Medicine CV HOSPITALIST 1 - [facility] DAILY PROGRESS NOTE Page [phone] to reach a provider 28/09 Admit Date: [...] hest pain, found to have transferred to [facility] for further management of NSTEMI. Patient found [...] ointment Diet: Daily Healthy Menu Choices/Cardiac diet ([facility]-Diet) DVT Prophylaxis: DOAC Code status: Attempt Cardiopulmonary Resuscitation - Inpatient Disposition: Discharge Location: AM-[facility] Basic Mobility Raw Score: 24 PT: OT: PCP Polo [place]es, [place] [phone] Lloyd Keating MD 09/06/2023 * Channing Montanez [...] at OSH with chest pain, transferred to [facility] for further management of NSTEMI. On arrival, [...] Miscellaneous Lab request Result Value Ref [facility] Lab Result Request received in lab. Hemogram [...] chest pain, found to have transferred to [facility] for further management of NSTEMI. Patient found [...] ointment Diet: Daily Healthy Menu Choices/Cardiac diet ([facility]-Diet) DVT Prophlaxis: DOAC Code status: Attempt Cardiopulmonary [...] screened for hospital length of stay and sheet writer met patient at bedside. Patient states [...] unless consulted in the interim. LORNA Berrios Oracle Engineer * Samantha Broussard MD - 09/04/2023 8:35 [...] at OSH with chest pain, transferred to [facility] for further management of NSTEMI. On arrival, [...] found to have elevated NSTEMI, transferred to [facility] for further management of NSTEMI. Patient found [...] ointment Diet: Daily Healthy Menu Choices/Cardiac diet ([facility]-Diet) DVT Prophlaxis: DOAC Code status: Attempt Cardiopulmonary [...] found to have elevated NSTEMI, transferred to [facility] for further management of NSTEMI. Patient found [...] ointment Diet: Daily Healthy Menu Choices/Cardiac diet ([facility]-Diet) DVT Prophlaxis: DOAC Code status: Attempt Cardiopulmonary [...] found to have elevated NSTEMI, transferred to [facility] for further management of NSTEMI. Patient found [...] neurontin Diet: Daily Healthy Menu Choices/Cardiac diet ([facility]-Diet) DVT Prophlaxis: DOAC Code status: Attempt Cardiopulmonary [...] found to have elevated NSTEMI, transferred to [facility] for further management of NSTEMI. Patient found [...] neurontin Diet: Daily Healthy Menu Choices/Cardiac diet ([facility]-Diet) DVT Prophlaxis: DOAC Code status: Attempt Cardiopulmonary [...] 7:25 AM EDT CV HOSPITALIST 1 - [facility] DAILY PROGRESS NOTE Page [phone] to reach a provider 28/09 Admit Date: [...] found to have elevated NSTEMI, transferred to [facility] for further management of NSTEMI. Patient found [...] duloxetine Diet: Daily Healthy Menu Choices/Cardiac diet ([facility]-Diet) DVT Prophlaxis: DOAC Code status: Attempt Cardiopulmonary Resuscitation - Inpatient Disposition: Discharge Planning: AM-PAC Basic Mobility Raw Score: 19 PT: OT: PCP JOCY Franco [phone] * Mary Castaneda RCP - 08/31/2023 5:18 [...] 9:11 PM EDT CV HOSPITALIST 1 - [facility] DAILY PROGRESS NOTE Page [phone] to reach a provider 28/09 Admit Date: [...] found to have elevated NSTEMI, transferred to [facility] for further management of NSTEMI Plan: #Acute [...] duloxetine Diet: Daily Healthy Menu Choices/Cardiac diet ([facility]-Diet) DVT Prophlaxis: DOAC Code status: Attempt Cardiopulmonary Resuscitation - Inpatient Disposition: Discharge Planning: AM-PAC Basic Mobility Raw Score: 19 PT: OT: PCP JOCY Franco [phone] * Neli Alcantar RN - 08/29/2023 3:25 [...] 7:07 AM EDT CV HOSPITALIST 1 - [facility] DAILY PROGRESS NOTE Page [phone] to reach a provider 28/09 Admit Date: [...] found to have elevated NSTEMI, transferred to [facility] for further management of NSTEMI Plan: #Acute [...] duloxetine Diet: Daily Healthy Menu Choices/Cardiac diet ([facility]-Diet) DVT Prophlaxis: heparin gtt Code status: Attempt Cardiopulmonary Resuscitation - Inpatient Disposition: Discharge Planning: AM-PAC Basic Mobility Raw Score: 19 PT: OT: PCP JOCY Franco [phone] documented in this encounter H&P Notes * [...] legs Asthma History of Present Illness: Loida Mardigal is a 53 y.o. female with a [...] treatment for possible ACS, and transfer to [facility] for further management. Prior to transfer, patient [...] 3.56) performed by Lashonda Villa MD at [facility] ENDOSCOPY PRO UPPER GI ENDOSCOPY, BIOPSY N/A 07/07/2023 EGD WITH BIOPSY (WRVU 2.39) performed by Lashonda Villa MD at [facility] ENDOSCOPY VS ARTERIOGRAM MESENTERIC VASCULAR SURGERY 07/02/2023 VS Arteriogram Mesenteric Vascular Surgery 07/02/[address] MD [facility] INTERVENTIONL RAD Prior To Admission Medications: [...] as needed. 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 Lives in [facility] Social Determinants of Health Financial [...] Administered Date(s) Administered Moderna Covid-19 Monovalent 12Yr+ (Fitness Services Manager 100mcg) 03/06/2020, 04/03/2020 Physical Exam: Last [...] found to have elevated NSTEMI, transferred to [facility] for further management #NSTEMI, type I vs [...] respiratory supplies, other (see comments) (BiPAP through [employer]) DME Needed at Discharge: N/A Patient is insured through: Primary Insurance: [employer] [place] Payor[place] [employer] [place] / Plan[place] / [...] Appropriate) * Plan of Care - Tim Cadroza RN - 09/09/2023 2:09 PM EDT OUTCOME [...] respiratory supplies, other (see comments) (BiPAP through [employer]) DME Needed at Discharge: No Patient is insured through: Primary Insurance: [employer] [place] Pay[place]: [employer] [place] / Plan: [employer] [place] / Product Type: *No Product [...] Pt will be receiving Cardiac rehab at [facility] post discharge. D/c plan pending clinical [...] in an outpatient cardiac rehabilitation program at [facility] was discussed. Patient agrees to a [...] Admitted From: Transfer from another hospital Location: [facility] Reason for Hospitalization: overall not feeling [...] homeless or living in a fdc (including now)?: No In the past 12 months has the [employer] [place], gas, oil, or water Freeze Tag threatened to shut off services in your [...] respiratory supplies, other (see comments) (BiPAP through [employer]) Home Address confirmed as: [address] [place] [address] Social & Family Supports: All names listed [...] Specific Information: N/A Health/Prescription Coverage: Primary Insurance: [employer] [place] Payor: [employer] [facility] [place] / Plan: [facility] [place] EX[place]ANGE / Product Type: *No Product type* / Secondary Insurance: N/A Prescription Coverage: Yes Preferred Pharmacy: [facility] [place], [place] - [address] [facility] [address] [facility] [address] [facility] - [place], [place] - [address] [facility] [address] [facility] [address] [facility] [address] [place] Status: Patient is a : No Primary Care Provider confirmed: JOCY Franco [phone] Patient/Caregiver Goals of Treatment: home when MR [...] from the original note were not included. [facility] [place] [address] [address] INPATIENT CARDIOLOGY CONSULT NOTE Reason for Consult: Chest pain HPI: Loida Madrigal is a 53 y.o. obese female, history of non-obstructive CAD ([facility] 04/2023) with suspicion for microvascular dysfunction [...] 1:00 PM EST Office Visit Cardiology at [place] [address] [place] [address] Jaspreet Kinsey MD [facility] [place] [address] Scheduled Orders Name Type Priority Associated Diagnoses [...] 4:17 AM EDT) Neutrophil % 54.4 % [facility] Neutrophil Absolute 4.17 1.70 - 6.10 x10(3)/[facility] LAB[facility] Lymph % 33.2 % [facility] Lymphocytes Abs 2.5 0.9 - 3.2 x10(3)/[facility] LABOR[facility] Monocyte % 8.4 % [facility] Monocyte Abs 0.6 0.3 - 0.9 x10(3)/[facility]OR[facility] Eos % 3.0 % [facility] Eosinophils Abs 0.2 0.0 - 0.4 x10(3)/[facility]OR[facility] Basophil % 0.7 % [facility] Baso Absolute 0.0 0.0 - 0.1 x10(3)/[facility] LABOR[facility]ORY Immature Gran % 0.30 % [facility] Comment: Immature granulocytes(IG's)percentage and absolute count will include metamyelocytes, myelocytes, and promyelocytes. Blood smears from CBCs yielding IG's will be scanned manually for concordance. If this scan disagrees with the automated IG or if promyelocytes are noted, a manual differential will be performed. Immature Gran Absolute 0.02 0.00 - 0.04 x10(3)/[facility] LABOR[facility] Blood 09/10/2023 4:17 AM EDT 09/10/2023 4:29 AM EDT Narrative Resulting Agency Comment Spec In Lab Eufemia Copeland MD HEMATOLOGY ORDERAB LES [facility] [place] [address] * (ABNORMAL) Hemogram (09/10/2023 4:17 AM EDT) White Blood Cell 7.6 4.0 - 9.5 x10(3)/mc [facility] Red Blood Cell 4.15 4.00 - 5.21 x10(6)/mc [facility] [...] LABORATORY Platelet 267 145 - 357 x10(3)/mc [facility] RDW Standard Deviation 44.6 37.0 - 46.0 [facility] RDW coefficient of variation 13.1 11.5 - 14.1 % [facility] Mean Platelet Volume 10.3 7.6 - 12.[address] [facility] NRBC% auto 0.0 % [facility] NRBC Absolute 0.000 0.000 - 0.000 x10(3)/mc L [facility] Blood 09/10/2023 4:17 AM EDT 09/10/2023 4:29 AM EDT Narrative Resulting Agency Comment Spec In Lab Eufemia Copeland MD HEMATOLOGY ORDERAB LES [facility] [place] [address] * (ABNORMAL) Basic Metabolic Panel (non-fasting) (09/10/2023 [...] MD CHEMISTRY ORDERABL ES Performing Organization Address City/[facility]/ZIP Co de Phone Number [facility] [place] [address] * Magnesium (09/10/2023 4:17 AM EDT) Pathologist [facility] Magnesium 0.99 0.69 - 1.07 mmol/L [facility] Blood 09/10/2023 4:17 AM EDT 09/10/2023 4:29 AM EDT Narrative Resulting Agency Comment Spec In Lab Eufemia Copeland MD CHEMISTRY ORDERABL ES Performing Organization Address [facility] Co de Phone Number [facility] [place] [address] * Differential, Automated (09/09/2023 5:10 AM EDT) [facility] Neutrophil % 54.1 % [facility] Neutrophil Absolute 4.00 1.70 - 6.10 x10(3)/[facility] LAB[facility] Lymph % 31.7 % [facility] Lymphocytes Abs 2.3 0.9 - 3.2 x10(3)/[facility]OR[facility] Monocyte % 9.5 % [facility] Monocyte Abs 0.7 0.3 - 0.9 x10(3)/[facility] Eos % 3.5 % [facility] Eosinophils Abs 0.3 0.0 - 0.4 x10(3)/[facility] Basophil % 0.8 % [facility] Baso Absolute 0.1 0.0 - 0.1 x10(3)/[facility]OR[facility] Immature Gran % 0.40 % [facility] Comment: Immature granulocytes(IG's)percentage and absolute count will include metamyelocytes, myelocytes, and promyelocytes. Blood smears from CBCs yielding IG's will be scanned manually for concordance. If this scan disagrees with the automated IG or if promyelocytes are noted, a manual differential will be performed. Immature Gran Absolute 0.03 0.00 - 0.04 x10(3)/mcL [facility] Blood 09/09/2023 5:10 AM EDT 09/09/2023 5:19 AM EDT Narrative Resulting Agency Comment Spec In Lab Eufemia Copeland MD HEMATOLOGY ORDERAB LES [facility] [place] [address] * (ABNORMAL) Hemogram (09/09/2023 5:10 AM EDT) White Blood Cell 7.4 4.0 - 9.5 x10(3)/[facility] LABORATORY Red Blood Cell 4.09 4.00 - 5.21 x10(6)/[facility] LABORATORY Hemoglobin 13.0 11.7 - 15.5 g/dL [facility] Hematocrit 39.2 35.7 - 45.8 % [facility] Mean Cell Volume 95.8(H) 82.6 - 94.[address] [facility] Mean Cell Hemoglobin 31.8 27.1 - 32.[address] [facility] Mean Cell Hemoglobin Concentration 33.2 31.7 - 35.0 g/dL [facility] Platelet 267 145 - 357 x10(3)/[facility] LABORAT[facility] RDW Standard Deviation 45.3 37.0 - 46.0 [facility]ORATORY RDW coefficient of variation 12.9 11.5 - 14.1 % [facility] Mean Platelet Volume 9.9 7.6 - 12.[address] [facility] NRBC% auto 0.0 % [facility] NRBC Absolute 0.000 0.000 - 0.000 x10(3)/[facility] LAB[facility] Blood 09/09/2023 5:10 AM EDT 09/09/2023 5:19 AM EDT Narrative Resulting Agency Comment Spec In Lab Eufemia Copeland MD HEMATOLOGY ORDERAB LES [facility] [place] [address] * (ABNORMAL) Basic Metabolic Panel (non-fasting) (09/09/2023 [...] ORDERABL ES Performing Organization Address [facility] Co de Phone Number [facility] [place] [address] * Magnesium (09/09/2023 5:10 AM EDT) Magnesium 0.97 0.69 - 1.07 mmol/L [facility] Blood 09/09/2023 5:10 AM EDT 09/09/2023 5:19 AM EDT Narrative Resulting Agency Comment Spec In Lab Eufemia Copeland MD CHEMISTRY ORDERABL ES Performing Organization Address [facility] de Phone Number [facility] [place] [address] * EKG 12 Lead (09/08/2023 4:01 AM EDT) Ventricular rate 59 BPM MUSE SYSTEM Atrial Rate 59 BPM MUSE SYSTEM P-R Interval 192 ms MUSE SYSTEM QRS Duration 92 ms MUSE SYSTEM Q-T Interval 452 ms MUSE SYSTEM QTC Calculated (Bezet) 447 ms MUSE SYSTEM Calculated P [place] 38 degrees MUSE SYSTEM Calculated R [place] 51 degrees MUSE SYSTEM Calculated T Chazy -18 degrees MUSE SYSTEM INTERPRETATION Sinus bradycardia Diffuse ST depression, consider subendocardial injury Abnormal ECG When compared with ECG of 03-SEP-2023 06:02, Premature atrial complexes are no longer Present QT has shortened I personally reviewed the tracing and edited the fellows interpretation Confirmed by fellow Vito Pearce ([id number]) on 09/08/2023 7:40:32 AM Confirmed by MD Angelo Danette ([id number]) on 09/08/2023 2:12:57 PM MUSE SYSTEM 09/08/2023 4:01 AM EDT 09/08/2023 2:12 PM EDT Eufemia Copeland MD ECG ORDERABLES MUSE SYSTEM * Differential, Automated (09/08/2023 2:22 AM EDT) Pathologist [facility] Neutrophil % 55.2 % [facility] Neutrophil Absolute 4.74 1.70 - 6.10 x10(3)/[facility] Lymph % 30.8 % [facility] Lymphocytes Abs 2.6 0.9 - 3.2 x10(3)/[facility] Monocyte % 9.5 % [facility] Monocyte Abs 0.8 0.3 - 0.9 x10(3)/[facility] Eos % 3.6 % [facility] Eosinophils Abs 0.3 0.0 - 0.4 x10(3)/[facility] Basophil % 0.5 % [facility] Baso Absolute 0.0 0.0 - 0.1 x10(3)/[facility] Immature Gran % 0.40 % [facility] Comment: Immature granulocytes(IG's)percentage and absolute count will include metamyelocytes, myelocytes, and promyelocytes. Blood smears from CBCs yielding IG's will be scanned manually for concordance. If this scan disagrees with the automated IG or if promyelocytes are noted, a manual differential will be performed. Immature Gran Absolute 0.03 0.00 - 0.04 x10(3)/[facility] Blood 09/08/2023 2:22 AM EDT 09/08/2023 2:37 AM EDT Narrative Resulting Agency Comment Spec In Lab Eufemia Copeland MD HEMATOLOGY ORDERAB LES [facility] [place] [address] * (ABNORMAL) Hemogram (09/08/2023 2:22 AM EDT) [facility] White Blood Cell 8.6 4.0 - 9.5 x10(3)/ L [facility] Red Blood Cell 3.98(L) 4.00 [...] HOSPITAL LABORATORY Platelet 274 145 - 357 x10(3)/[facility] LAB[facility]ORY RDW Standard Deviation 44.5 37.0 - 46.[address] [facility] RDW coefficient of variation 12.9 11.5 - 14.1 % [facility] Mean Platelet Volume 10.4 7.6 - 12.[address] [facility] NRBC% auto 0.0 % [facility] NRBC Absolute 0.000 0.000 - 0.000 x10(3)/[facility] LAB[facility] Blood 09/08/2023 2:22 AM EDT 09/08/2023 2:37 AM EDT Narrative Resulting Agency Comment Spec In Lab Eufemia Copeland MD HEMATOLOGY ORDERAB LES [facility] [place] [address] * (ABNORMAL) Basic Metabolic Panel (non-fasting) (09/08/2023 2:22 AM EDT) [facility] Glucose 98 65 - 199 mg/dL ST. [...] CHEMISTRY ORDERABL ES [facility] [place] [address] * Magnesium (09/08/2023 2:22 AM EDT) Magnesium 0.91 0.69 - 1.07 mmol/L [facility] Blood 09/08/2023 2:22 AM EDT 09/08/2023 2:37 AM EDT Narrative Resulting Agency Comment Spec In Lab Eufemia Copeland MD CHEMISTRY ORDERABL ES Performing Organization Address City/[facility]/ZIP Co de Phone Number [facility] [place] [address] * Differential, Automated (09/07/2023 2:56 AM EDT) Neutrophil % 52.3 % [facility] Neutrophil Absolute 3.74 1.70 - 6.10 x10(3)/[facility] Lymph % 33.8 % [facility] Lymphocytes Abs 2.4 0.9 - 3.2 x10(3)/[facility] Monocyte % 9.4 % [facility] Monocyte Abs 0.7 0.3 - 0.9 x10(3)/[facility] Eos % 3.6 % [facility] Eosinophils Abs 0.3 0.0 - 0.4 x10(3)/[facility] Basophil % 0.6 % [facility] Baso Absolute 0.0 0.0 - 0.1 x10(3)/[facility] Immature Gran % 0.30 % [facility] Comment: Immature granulocytes(IG's)percentage and absolute count will include metamyelocytes, myelocytes, and promyelocytes. Blood smears from CBCs yielding IG's will be scanned manually for concordance. If this scan disagrees with the automated IG or if promyelocytes are noted, a manual differential will be performed. Immature Gran Absolute 0.02 0.00 - 0.04 x10(3)/[facility] Blood 09/07/2023 2:56 AM EDT 09/07/2023 3:31 AM EDT Narrative Resulting Agency Comment Spec In Lab Eufemia Copeland MD HEMATOLOGY ORDERAB LES [facility] [place] [address] * (ABNORMAL) Hemogram (09/07/2023 2:56 AM EDT) [facility] White Blood Cell 7.2 4.0 - 9.5 x10(3)/[facility] Red Blood Cell 4.16 4.00 - 5.21 x10(6)/[facility] Hemoglobin 13.1 11.7 - 15.5 g/dL [facility] Hematocrit 39.7 35.7 - 45.8 % [facility] Mean Cell Volume 95.4(H) 82.6 - 94.[address] [facility] Mean Cell Hemoglobin 31.5 27.1 - 32.[address] [facility] Mean Cell Hemoglobin Concentration 33.0 31.7 - 35.0 g/dL [facility] Platelet 277 145 - 357 x10(3)/[facility] LABORATORY RDW Standard Deviation 45.4 37.0 - 46.0 [facility] RDW coefficient of variation 12.9 11.5 - 14.1 % [facility] Mean Platelet Volume 10.6 7.6 - 12.[address] [facility] NRBC% auto 0.0 % [facility] NRBC Absolute 0.000 0.000 - 0.000 x10(3)/[facility] Blood 09/07/2023 2:56 AM EDT 09/07/2023 3:31 AM EDT Narrative Resulting Agency Comment Spec In Lab Eufemia Copeland MD HEMATOLOGY ORDERAB LES [facility] [place] [address] * (ABNORMAL) Basic Metabolic Panel (non-fasting) (09/07/2023 2:56 AM EDT) [facility] Glucose 97 65 - 199 mg/dL ST. [...] CHEMISTRY ORDERABL ES [facility] [place] [address] * Magnesium (09/07/2023 2:56 AM EDT) Magnesium 0.96 0.69 - 1.07 mmol/L [facility] Blood 09/07/2023 2:56 AM EDT 09/07/2023 3:31 AM EDT Narrative Resulting Agency Comment Spec In Lab Eufemia Copeland MD CHEMISTRY ORDERABL ES [facility] [place] [address] * Differential, Automated (09/06/2023 2:44 AM EDT) [facility] Neutrophil % 53.7 % [facility] Neutrophil Absolute 4.01 1.70 - 6.10 x10(3)/[facility] Lymph % 32.0 % [facility] Lymphocytes Abs 2.4 0.9 - 3.2 x10(3)/[facility] Monocyte % 10.0 % [facility] Monocyte Abs 0.8 0.3 - 0.9 x10(3)/[facility] Eos % 3.2 % [facility] Eosinophils Abs 0.2 0.0 - 0.4 x10(3)/[facility] Basophil % 0.7 % [facility] Baso Absolute 0.0 0.0 - 0.1 x10(3)/[facility] Immature Gran % 0.40 % [facility] Comment: Immature granulocytes(IG's)percentage and absolute count will include metamyelocytes, myelocytes, and promyelocytes. Blood smears from CBCs yielding IG's will be scanned manually for concordance. If this scan disagrees with the automated IG or if promyelocytes are noted, a manual differential will be performed. Immature Gran Absolute 0.03 0.00 - 0.04 x10(3)/[facility] Blood 09/06/2023 2:44 AM EDT 09/06/2023 2:58 AM EDT Narrative Resulting Agency Comment Spec In Lab Eufemia Copeland MD HEMATOLOGY ORDERAB LES [facility] [place] [address] * Hemogram (09/06/2023 2:44 AM EDT) White Blood Cell 7.5 4.0 - 9.5 x10(3)/[facility] Red Blood Cell 4.26 4.00 - 5.21 x10(6)/[facility] Hemoglobin 13.6 11.7 - 15.5 g/dL [facility] Hematocrit 40.2 35.7 - 45.8 % [facility] Mean Cell Volume 94.4 82.6 - 94.[address] [facility] Mean Cell Hemoglobin 31.9 27.1 - 32.[address] [facility] Mean Cell Hemoglobin Concentration 33.8 31.7 - 35.0 g/dL [facility] Platelet 274 145 - 357 x10(3)/[facility] RDW Standard Deviation 44.3 37.0 - 46.0 [facility] RDW coefficient of variation 12.9 11.5 - 14.1 % [facility] Mean Platelet Volume 10.2 7.6 - 12.[address] [facility] NRBC% auto 0.0 % [facility] NRBC Absolute 0.000 0.000 - 0.000 x10(3)/[facility] Blood 09/06/2023 2:44 AM EDT 09/06/2023 2:58 AM EDT Narrative Resulting Agency Comment Spec In Lab Eufemia Copeland MD HEMATOLOGY ORDERAB LES Performing Organization Address City/[facility]/ZIP Co de Phone Number [facility] [place] [address] * Basic Metabolic Panel (non-fasting) (09/06/2023 2:44 [...] CHEMISTRY ORDERABL ES [facility] [place] [address] * Magnesium (09/06/2023 2:44 AM EDT) Magnesium 0.95 0.69 - 1.07 mmol/L [facility] Blood 09/06/2023 2:44 AM EDT 09/06/2023 2:58 AM EDT Narrative Resulting Agency Comment Spec In Lab Eufemia Copeland MD CHEMISTRY ORDERABL ES [facility] [address] [place] [address] * CT Abdomen & Pelvis w Contrast (09/05/2023 4:25 PM EDT) [facility] WORKSTATION ID [id number] RAD Anatomical Region Laterality Modality Abdomen, Pelvis [...] who have questions please contact the health caretaker grounds that requested your imaging first. ? Narrative [...] patients who have questions please contactthe health caretaker grounds that requested your imaging first. Electronically signed by: Lalitha Sanders MD, [facility]([phone]), at 09/06/2023 9:47 AM Samantha Broussard MD IMG CT ORDERABLES * Differential, Automated (09/05/2023 1:58 AM EDT) Neutrophil % 54.5 % [facility] Neutrophil Absolute 4.32 1.70 - 6.10 x10(3)/[facility] Lymph % 30.5 % [facility] Lymphocytes Abs 2.4 0.9 - 3.2 x10(3)/[facility] Monocyte % 11.4 % [facility] Monocyte Abs 0.9 0.3 - 0.9 x10(3)/[facility] Eos % 2.8 % [facility] Eosinophils Abs 0.2 0.0 - 0.4 x10(3)/[facility] Basophil % 0.5 % [facility] Baso Absolute 0.0 0.0 - 0.1 x10(3)/[facility] Immature Gran % 0.30 % [facility] Comment: Immature granulocytes(IG's)percentage and absolute count will include metamyelocytes, myelocytes, and promyelocytes. Blood smears from CBCs yielding IG's will be scanned manually for concordance. If this scan disagrees with the automated IG or if promyelocytes are noted, a manual differential will be performed. Immature Gran Absolute 0.02 0.00 - 0.04 x10(3)/[facility] Blood 09/05/2023 1:58 AM EDT 09/05/2023 2:13 AM EDT Narrative Resulting Agency Comment Spec In Lab Eufemia Copeland MD HEMATOLOGY ORDERAB LES [facility] [place] [address] * Hemogram (09/05/2023 1:58 AM EDT) White Blood Cell 7.9 4.0 - 9.5 x10(3)/[facility] Red Blood Cell 4.38 4.00 - 5.21 x10(6)/[facility] Hemoglobin 13.7 11.7 - 15.5 g/dL [facility] Hematocrit 40.5 35.7 - 45.8 % [facility] Mean Cell Volume 92.5 82.6 - 94.[address] [facility] Mean Cell Hemoglobin 31.3 27.1 - 32.[address] [facility] Mean Cell Hemoglobin Concentration 33.8 31.7 - 35.0 g/dL [facility] Platelet 282 145 - 357 x10(3)/[facility] RDW Standard Deviation 44.0 37.0 - 46.[address] [facility] RDW coefficient of variation 13.0 11.5 - 14.1 % [facility] Mean Platelet Volume 10.4 7.6 - 12.[address] [facility] NRBC% auto 0.0 % [facility] NRBC Absolute 0.000 0.000 - 0.000 x10(3)/[facility] Blood 09/05/2023 1:58 AM EDT 09/05/2023 2:13 AM EDT Narrative Resulting Agency Comment Spec In Lab Eufemia Copeland MD HEMATOLOGY ORDERAB LES [facility] [place] [address] * (ABNORMAL) Basic Metabolic Panel (non-fasting) (09/05/2023 [...] ORDERABL ES Performing Organization Address [facility] Co de Phone Number [facility] [place] [address] * Magnesium (09/05/2023 1:58 AM EDT) Magnesium 1.02 0.69 - 1.07 mmol/L [facility] Blood 09/05/2023 1:58 AM EDT 09/05/2023 2:13 AM EDT Narrative Resulting Agency Comment Spec In Lab Eufemia Copeland MD CHEMISTRY ORDERABL ES Performing Organization Address City/[facility]/ZIP Co de Phone Number [facility] [place] [address] * Miscellaneous Lab request (09/05/2023 1:58 AM EDT) Label Request received in lab. [facility] Blood 09/05/2023 1:58 AM EDT 09/05/2023 2:14 AM EDT Narrative Resulting Agency Comment Spec In Lab Samantha Broussard MD LAB SEND OUT ORDERAB LES Performing Organization Address City/[facility]/ZIP Co de Phone Number [facility] [place] [address] * IgG 4 (09/05/2023 1:58 AM EDT) IgG 4 47.7 3.9 - 86.4 mg/dL [facility] Blood 09/05/2023 1:58 AM EDT 09/05/2023 2:13 AM EDT Narrative Resulting Agency Comment Spec In Lab Samantha Broussard MD IMMUNOLOGY ORDERABLE S Performing Organization Address [facility] Co de Phone Number [facility] [place] [address] * (ABNORMAL) Basic Metabolic Panel (non-fasting) (09/04/2023 [...] Mcmanus MD CHEMISTRY ORDERABLES Performing Organization Address City/[facility] Co de Phone Number [facility] [place] [address] * (ABNORMAL) Potassium (09/04/2023 9:13 AM EDT) [...] In Lab Samantha Broussard MD CHEMISTRY ORDERABLES [facility] [place] [address] * (ABNORMAL) Potassium (09/04/2023 4:25 AM EDT) [facility] Potassium 2.9(Criti edy) 3.5 - 5.0 mmol/L [...] In Lab Lorna Herr MD CHEMISTRY ORDERABLES [facility] [place] [address] * Differential, Automated (09/04/2023 3:03 AM EDT) [facility] Neutrophil % 59.0 % [facility] Neutrophil Absolute 4.85 1.70 - 6.10 x10(3)/[facility] Lymph % 26.3 % [facility] Lymphocytes Abs 2.2 0.9 - 3.2 x10(3)/[facility] Monocyte % 10.4 % [facility] Monocyte Abs 0.8 0.3 - 0.9 x10(3)/[facility] Eos % 3.4 % [facility] Eosinophils Abs 0.3 0.0 - 0.4 x10(3)/[facility] Basophil % 0.5 % [facility] Baso Absolute 0.0 0.0 - 0.1 x10(3)/[facility] Immature Gran % 0.40 % [facility] Comment: Immature granulocytes(IG's)percentage and absolute count will include metamyelocytes, myelocytes, and promyelocytes. Blood smears from CBCs yielding IG's will be scanned manually for concordance. If this scan disagrees with the automated IG or if promyelocytes are noted, a manual differential will be performed. Immature Gran Absolute 0.03 0.00 - 0.04 x10(3)/mcL [facility] Blood 09/04/2023 3:03 AM EDT 09/04/2023 3:21 AM EDT Narrative Resulting Agency Comment Spec In Lab Eufemia Copeland MD HEMATOLOGY ORDERAB LES [facility] [place] [address] * (ABNORMAL) Hemogram (09/04/2023 3:03 AM EDT) White Blood Cell 8.2 4.0 - 9.5 x10(3)/mc L [facility] [...] Platelet 306 145 - 357 x10(3)/mc L [facility] RDW Standard Deviation 42.8 37.0 - 46.[address] [facility] RDW coefficient of variation 12.8 11.5 - 14.1 % [facility] Mean Platelet Volume 10.2 7.6 - 12.[address] [facility] NRBC% auto 0.0 % [facility] NRBC Absolute 0.000 0.000 - 0.000 x10(3)/mc L [facility] Blood 09/04/2023 3:03 AM EDT 09/04/2023 3:21 AM EDT Narrative Resulting Agency Comment Spec In Lab Eufemia Copeland MD HEMATOLOGY ORDERAB LES [facility] [place] [address] * (ABNORMAL) Basic Metabolic Panel (non-fasting) (09/04/2023 3:03 AM EDT) Glucose 117 65 - 199 mg/dL ST. [...] ORDERABL ES Performing Organization Address [facility] Co de Phone Number [facility] [place] [address] * Magnesium (09/04/2023 3:03 AM EDT) [facility] Magnesium 1.07 0.69 - 1.07 mmol/L [facility] Blood 09/04/2023 3:03 AM EDT 09/04/2023 3:21 AM EDT Narrative Resulting Agency Comment Spec In Lab Eufemia Copeland MD CHEMISTRY ORDERABL ES Performing Organization Address [facility] Co de Phone Number [facility] [place] [address] * EKG 12 Lead (09/03/2023 6:02 AM EDT) Ventricular rate 65 BPM MUSE SYSTEM Atrial Rate 65 BPM MUSE SYSTEM P-R Interval 196 ms MUSE SYSTEM QRS Duration 94 ms MUSE SYSTEM Q-T Interval 580 ms MUSE SYSTEM QTC Calculated (Bezet) 603 ms MUSE SYSTEM Calculated P Chazy 39 degrees MUSE SYSTEM Calculated R Chazy 28 degrees MUSE SYSTEM Calculated T Ch[place] 35 degrees MUSE SYSTEM INTERPRETATION Sinus rhythm with Premature atrial complexes Possible Left atrial enlargement Nonspecific ST and T wave abnormality Abnormal ECG When compared with ECG of 03-SEP-2023 03:05, Nonspecific T wave abnormality no longer evident in Inferior leads Nonspecific T wave abnormality, improved in Anterolateral leads QT has lengthened Confirmed by fellow MD Santo Kajal ([id number]) on 09/06/2023 12:52:08 AM Confirmed by MD Lucia Jose ([id number]) on 09/06/2023 9:05:05 PM MUSE SYSTEM 09/03/2023 6:02 AM EDT 09/06/2023 9:05 PM EDT Archie Mcmanus MD ECG ORDERABLES Performing Organization Address [facility] Co de Phone Number MUSE SYSTEM * EKG 12 Lead (09/03/2023 3:05 AM EDT) Ventricular rate 62 BPM MUSE SYSTEM Atrial Rate 62 BPM MUSE SYSTEM P-R Interval 174 ms MUSE SYSTEM QRS Duration 90 ms MUSE SYSTEM Q-T Interval 486 ms MUSE SYSTEM QTC Calculated (Bezet) 493 ms MUSE SYSTEM Calculated P [place] 20 degrees MUSE SYSTEM Calculated R Chazy 20 degrees MUSE SYSTEM Calculated T Ch[place] -7 degrees MUSE SYSTEM INTERPRETATION Sinus rhythm with Premature atrial complexes Nonspecific ST and T wave abnormality Abnormal ECG When compared with ECG of 02-SEP-2023 14:42, Premature atrial complexes are now Present QT has lengthened Confirmed by fellow MD Santo Kajal ([id number]) on 09/06/2023 12:50:25 AM Confirmed by MD Lucia Jose ([id number]) on 09/06/2023 9:04:55 PM MUSE SYSTEM 09/03/2023 3:05 AM EDT 09/06/2023 9:04 PM EDT Archie Mcmanus MD ECG ORDERABLES Performing Organization Address [facility] Co de Phone Number MUSE SYSTEM * Differential, Automated (09/03/2023 2:39 AM EDT) Neutrophil % 61.1 % [facility] Neutrophil Absolute 5.22 1.70 - 6.10 x10(3)/[facility] Lymph % 24.2 % [facility] Lymphocytes Abs 2.1 0.9 - 3.2 x10(3)/[facility] Monocyte % 10.3 % [facility] Monocyte Abs 0.9 0.3 - 0.9 x10(3)/[facility] Eos % 3.6 % [facility] Eosinophils Abs 0.3 0.0 - 0.4 x10(3)/[facility] Basophil % 0.6 % [facility] Baso Absolute 0.0 0.0 - 0.1 x10(3)/[facility] Immature Gran % 0.20 % [facility] Comment: Immature granulocytes(IG's)percentage and absolute count will include metamyelocytes, myelocytes, and promyelocytes. Blood smears from CBCs yielding IG's will be scanned manually for concordance. If this scan disagrees with the automated IG or if promyelocytes are noted, a manual differential will be performed. Immature Gran Absolute 0.02 0.00 - 0.04 x10(3)/[facility] Blood 09/03/2023 2:39 AM EDT 09/03/2023 2:46 AM EDT Narrative Resulting Agency Comment Spec In Lab Eufemia Copeland MD HEMATOLOGY ORDERAB LES [facility] [place] [address] * Hemogram (09/03/2023 2:39 AM EDT) White Blood Cell 8.6 4.0 - 9.5 x10(3)/[facility] Red Blood Cell 4.83 4.00 - 5.21 x10(6)/[facility] Hemoglobin 15.2 11.7 - 15.5 g/dL [facility] Hematocrit 45.4 35.7 - 45.8 % [facility] Mean Cell Volume 94.0 82.6 - 94.[address] [facility] Mean Cell Hemoglobin 31.5 27.1 - 32.[address] [facility] Mean Cell Hemoglobin Concentration 33.5 31.7 - 35.0 g/dL [facility] Platelet 295 145 - 357 x10(3)/[facility] RDW Standard Deviation 44.1 37.0 - 46.[address] [facility] RDW coefficient of variation 12.8 11.5 - 14.1 % [facility] Mean Platelet Volume 10.3 7.6 - 12.[address] [facility] NRBC% auto 0.0 % [facility] NRBC Absolute 0.000 0.000 - 0.000 x10(3)/[facility] Blood 09/03/2023 2:39 AM EDT 09/03/2023 2:46 AM EDT Narrative Resulting Agency Comment Spec In Lab Eufemia Copeland MD HEMATOLOGY ORDERAB LES Performing Organization Address City/State/[facility] Co de Phone Number [facility] [place] [address] * (ABNORMAL) Basic Metabolic Panel (non-fasting) (09/03/2023 [...] CHEMISTRY ORDERABL ES [facility] [place] [address] * Magnesium (09/03/2023 2:39 AM EDT) Magnesium 0.98 0.69 - 1.07 mmol/L [facility] Blood 09/03/2023 2:39 AM EDT 09/03/2023 2:46 AM EDT Narrative Resulting Agency Comment Spec In Lab Eufemia Copeland MD CHEMISTRY ORDERABL ES [facility] [place] [address] * (ABNORMAL) Protein Electrophoresis, serum (09/03/2023 2:39 [...] CHEMISTRY ORDERABLES Performing Organization Address [facility] [facility] Co de Phone Number [facility] [place] [address] * Protein Electrophoresis, urine, random (09/02/2023 9:30 [...] Herr MD URINE ORDERABLES Performing Organization Address [facility]/ZIP Co de Phone Number [facility] [place] [address] * (ABNORMAL) Troponin (09/02/2023 8:16 PM EDT) [...] troponin value can be found in the [facility] Test Catalog Troponin - [facility] Test Catalog Reference: Fourth [place] Definition of Myocardial Infarction. Journal of the [employer] 2018;72:4151-7733 Blood 09/02/2023 8:16 PM EDT 09/02/2023 8:25 PM EDT Narrative Resulting Agency Comment Spec In Lab Lorna Herr MD CHEMISTRY ORDERABLES [facility] [place] [address] * (ABNORMAL) pro-Brain Natriuretic Peptide (09/02/2023 5:05 PM EDT) NT-proBNP 985(H) <=124 pg/mL [facility] Blood 09/02/2023 5:05 PM EDT 09/02/2023 5:17 PM EDT Narrative Resulting Agency Comment Spec In Lab Lorna Herr MD CHEMISTRY ORDERABLES Performing Organization Address City/[facility]/ZIP Co de Phone Number [facility] [place] [address] * (ABNORMAL) Troponin (09/02/2023 5:05 PM EDT) Pathologist [facility] Troponin-T, High Sensitivity 24(H) <=14 ng/L ST. [...] troponin value can be found in the [facility] Test Catalog Troponin - [facility] Test Catalog Reference: Fourth [place] Definition of Myocardial Infarction. Journal of the [place] [employer] 2018;72:0296-0645 Blood 09/02/2023 5:05 PM EDT 09/02/2023 5:17 PM EDT Narrative Resulting Agency Comment Spec In Lab Lorna Herr MD CHEMISTRY ORDERABLES Performing Organization Address City/[facility]/ZIP Co de Phone Number [facility] [place] [address] * EKG 12 Lead (09/02/2023 2:42 PM EDT) Ventricular rate 60 BPM MUSE SYSTEM Atrial Rate 60 BPM MUSE SYSTEM P-R Interval 178 ms MUSE SYSTEM QRS Duration 88 ms MUSE SYSTEM Q-T Interval 434 ms MUSE SYSTEM QTC Calculated (Bezet) 434 ms MUSE SYSTEM Calculated P Chazy 42 degrees MUSE SYSTEM Calculated R Chazy 44 degrees MUSE SYSTEM INTERPRETATION Normal sinus [...] EDT) Troponin-T, High Sensitivity 22(H) <=14 ng/L ST. [...] troponin value can be found in the [facility] Test Catalog Troponin - [facility] Test Catalog Reference: Fourth [place] Definition of Myocardial Infarction. Journal of the [place] [employer] 2018;72:7567-1187 Blood 09/02/2023 9:05 AM EDT 09/02/2023 9:28 AM EDT Narrative Resulting Agency Comment Spec In Lab Archie Mcmanus MD CHEMISTRY ORDERABLES [facility] [place] [address] * Differential, Automated (09/02/2023 3:18 AM EDT) Neutrophil % 58.4 % [facility] Neutrophil Absolute 4.40 1.70 - 6.10 x10(3)/[facility] Lymph % 28.2 % [facility] Lymphocytes Abs 2.1 0.9 - 3.2 x10(3)/[facility] Monocyte % 8.3 % [facility] Monocyte Abs 0.6 0.3 - 0.9 x10(3)/[facility] Eos % 4.2 % [facility] Eosinophils Abs 0.3 0.0 - 0.4 x10(3)/[facility] Basophil % 0.5 % [facility] Baso Absolute 0.0 0.0 - 0.1 x10(3)/[facility] Immature Gran % 0.40 % [facility] Comment: Immature granulocytes(IG's)percentage and absolute count will include metamyelocytes, myelocytes, and promyelocytes. Blood smears from CBCs yielding IG's will be scanned manually for concordance. If this scan disagrees with the automated IG or if promyelocytes are noted, a manual differential will be performed. Immature Gran Absolute 0.03 0.00 - 0.04 x10(3)/[facility] Blood 09/02/2023 3:18 AM EDT 09/02/2023 3:55 AM EDT Narrative Resulting Agency Comment Spec In Lab Eufemia Copeland MD HEMATOLOGY ORDERAB LES [facility] [place] [address] * (ABNORMAL) Hemogram (09/02/2023 3:18 AM EDT) White Blood Cell 7.6 4.0 - 9.5 x10(3)/mc L [facility] Red Blood Cell 4.33 4.00 - 5.21 x10(6)/mc L [facility] Hemoglobin 13.6 11.7 - 15.5 g/dL [facility] Hematocrit 41.0 35.7 - 45.8 % [facility] Mean Cell Volume 94.7(H) 82.6 - 94.[address] [facility] NRBC% auto 0.0 % [facility] NRBC Absolute 0.000 0.000 - 0.000 x10(3)/mc L [facility] Blood 09/02/2023 3:18 AM EDT 09/02/2023 3:55 AM EDT Narrative Resulting Agency Comment Spec In Lab Eufemia Copeland MD HEMATOLOGY ORDERAB LES [facility] [place] [address] * (ABNORMAL) Troponin (09/02/2023 3:18 AM EDT) Pathologist [facility] Troponin-T, High Sensitivity 23(H) <=14 ng/L ST. [...] troponin value can be found in the [facility] Test Catalog Troponin - [facility] Test Catalog Reference: Fourth [place] Definition of Myocardial Infarction. Journal of the [place] [employer] 2018;72:1943-0962 Blood 09/02/2023 3:18 AM EDT 09/02/2023 3:55 AM EDT Narrative Resulting Agency Comment Spec In Lab Archie Mcmanus MD CHEMISTRY ORDERABLES [facility] [place] [address] * (ABNORMAL) Basic Metabolic Panel (non-fasting) (09/02/2023 3:18 AM EDT) Pathologist [facility] Glucose 121 65 - 199 mg/dL ST. [...] CHEMISTRY ORDERABL ES [facility] [place] [address] * Magnesium (09/02/2023 3:18 AM EDT) Magnesium 0.91 0.69 - 1.07 mmol/L [facility] Blood 09/02/2023 3:18 AM EDT 09/02/2023 3:55 AM EDT Narrative Resulting Agency Comment Spec In Lab Eufemia Copeland MD CHEMISTRY ORDERABL ES Performing Organization Address City/[facility]/[place] [address] * Differential, Automated (09/01/2023 3:08 AM EDT) Neutrophil % 57.1 % [facility] Neutrophil Absolute 4.00 1.70 - 6.10 x10(3)/[facility] Lymph % 26.9 % [facility] Lymphocytes Abs 1.9 0.9 - 3.2 x10(3)/[facility] Monocyte % 11.4 % [facility] Monocyte Abs 0.8 0.3 - 0.9 x10(3)/[facility] Eos % 4.1 % [facility] Eosinophils Abs 0.3 0.0 - 0.4 x10(3)/[facility] Basophil % 0.4 % [facility] Baso Absolute 0.0 0.0 - 0.1 x10(3)/[facility] Immature Gran % 0.10 % [facility] Comment: Immature granulocytes(IG's)percentage and absolute count will include metamyelocytes, myelocytes, and promyelocytes. Blood smears from CBCs yielding IG's will be scanned manually for concordance. If this scan disagrees with the automated IG or if promyelocytes are noted, a manual differential will be performed. Immature Gran Absolute 0.01 0.00 - 0.04 x10(3)/[facility] Blood 09/01/2023 3:08 AM EDT 09/01/2023 3:18 AM EDT Narrative Resulting Agency Comment Spec In Lab Eufemia Copeland MD HEMATOLOGY ORDERAB LES Performing Organization Address City/[facility]/ZIP Co de Phone Number [facility] [place] [address] * (ABNORMAL) Hemogram (09/01/2023 3:08 AM EDT) [facility] White Blood Cell 7.0 4.0 - 9.5 x10(3)/[facility] LABORAT[facility] Red Blood Cell 4.18 4.00 - 5.21 x10(6)/[facility] LAB[facility]ORY Hemoglobin 13.6 11.7 - 15.5 g/dL [facility] Hematocrit 39.8 35.7 - 45.8 % [facility] Mean Cell Volume 95.2(H) 82.6 - 94.[address] [facility] Mean Cell Hemoglobin 32.5(H) 27.1 - 32.[address] [facility] Mean Cell Hemoglobin Concentration 34.2 31.7 - 35.0 g/dL [facility] Platelet 232 145 - 357 x10(3)/[facility] LABORATORY RDW Standard Deviation 45.0 37.0 - 46.0 [facility] LABORATORY RDW coefficient of variation 13.1 11.5 - 14.1 % [facility] Mean Platelet Volume 10.2 7.6 - 12.9 [facility] LABORATORY NRBC% auto 0.0 % [facility] NRBC Absolute 0.000 0.000 - 0.000 x10(3)/[facility] LAB[facility] Blood 09/01/2023 3:08 AM EDT 09/01/2023 3:18 AM EDT Narrative Resulting Agency Comment Spec In Lab Eufemia Copeland MD HEMATOLOGY ORDERAB LES [facility] [place] [address] * (ABNORMAL) Basic Metabolic Panel (non-fasting) (09/01/2023 3:08 AM EDT) [facility] Glucose 110 65 - 199 mg/dL ST. [...] CHEMISTRY ORDERABL ES [facility] [place] [address] * Magnesium (09/01/2023 3:08 AM EDT) Magnesium 0.98 0.69 - 1.07 mmol/L [facility] Blood 09/01/2023 3:08 AM EDT 09/01/2023 3:18 AM EDT Narrative Resulting Agency Comment Spec In Lab Eufemia Copeland MD CHEMISTRY ORDERABL ES Performing Organization Address City/[facility]/ZIP Co de Phone Number [facility] [place] [address] * Magnesium (08/31/2023 5:03 PM EDT) Magnesium 0.95 0.69 - 1.07 mmol/L [facility] Blood 08/31/2023 5:03 PM EDT 08/31/2023 5:08 PM EDT Narrative Resulting Agency Comment Spec In Lab Eufemia Copeland MD CHEMISTRY ORDERABL ES Performing Organization Address [facility]/ZIP Co de Phone Number [facility] [place] [address] * Phosphorus (08/31/2023 5:03 PM EDT) Phosphorus 3.8 2.5 - 4.5 mg/dL [facility] Blood 08/31/2023 5:03 PM EDT 08/31/2023 5:08 PM EDT Narrative Resulting Agency Comment Spec In Lab Eufemia Copeland MD CHEMISTRY ORDERABL ES Performing Organization Address [facility]/ZIP Co de Phone Number [facility] [place] [address] * (ABNORMAL) Basic Metabolic Panel (non-fasting) (08/31/2023 [...] Filtration Rate 57(L) >=60 mL/min/1. 73 m[facility] [...] CHEMISTRY ORDERABL ES [facility] [place] [address] * Differential, Automated (08/31/2023 2:18 AM EDT) Neutrophil % 58.1 % [facility] Neutrophil Absolute 4.52 1.70 - 6.10 x10(3)/mcL [facility] Lymph % 25.8 % [facility] Lymphocytes Abs 2.0 0.9 - 3.2 x10(3)/[facility] Monocyte % 11.0 % [facility] Monocyte Abs 0.9 0.3 - 0.9 x10(3)/[facility] Eos % 4.0 % [facility] Eosinophils Abs 0.3 0.0 - 0.4 x10(3)/[facility] Basophil % 0.6 % [facility] Baso Absolute 0.0 0.0 - 0.1 x10(3)/[facility] Immature Gran % 0.50 % [facility] Comment: Immature granulocytes(IG's)percentage and absolute count will include metamyelocytes, myelocytes, and promyelocytes. Blood smears from CBCs yielding IG's will be scanned manually for concordance. If this scan disagrees with the automated IG or if promyelocytes are noted, a manual differential will be performed. Immature Gran Absolute 0.04 0.00 - 0.04 x10(3)/[facility] Blood 08/31/2023 2:18 AM EDT 08/31/2023 2:23 AM EDT Narrative Resulting Agency Comment Spec In Lab Archie Mcmanus MD HEMATOLOGY ORDERABLE S Performing Organization Address City/State/[facility] Co de Phone Number [facility] [place] [address] * (ABNORMAL) Hemogram (08/31/2023 2:18 AM EDT) White Blood Cell 7.8 4.0 - 9.5 x10(3)/mc L [facility] Red Blood Cell 3.97(L) 4.00 - 5.21 x10(6)/mc L [facility] Hemoglobin 12.6 11.7 - 15.5 g/dL [facility] Hematocrit 38.5 35.7 - 45.8 % [facility] Mean Cell Volume 97.0(H) 82.6 - 94.[address] [facility] Mean Cell Hemoglobin 31.7 27.1 - 32.[address] [facility] Mean Cell Hemoglobin Concentration 32.7 31.7 - 35.0 g/dL [facility] Platelet 218 145 - 357 x10(3)/mc L [facility] RDW Standard Deviation 47.5(H) 37.0 - 46.[address] [facility] RDW coefficient of variation 13.2 11.5 - 14.1 % [facility] Mean Platelet Volume 10.6 7.6 - 12.[address] [facility] NRBC% auto 0.0 % [facility] NRBC Absolute 0.000 0.000 - 0.000 x10(3)/mc L [facility] Blood 08/31/2023 2:18 AM EDT 08/31/2023 2:23 AM EDT Narrative Resulting Agency Comment Spec In Lab Archie Mcmanus MD HEMATOLOGY ORDERABLE S Performing Organization Address City/[facility]/ZIP Co de Phone Number [facility] [place] [address] * Magnesium (08/31/2023 2:18 AM EDT) Magnesium 0.96 0.69 - 1.07 mmol/L [facility] Blood 08/31/2023 2:18 AM EDT 08/31/2023 2:23 AM EDT Narrative Resulting Agency Comment Spec In Lab Eufemia Copeland MD CHEMISTRY ORDERABL ES Performing Organization Address City/[facility]/ZIP Co de Phone Number [facility] [place] [address] * (ABNORMAL) Basic Metabolic Panel (non-fasting) (08/31/2023 [...] MD CHEMISTRY ORDERABLES [facility] [place] [address] * Differential, Automated (08/30/2023 3:09 AM EDT) Neutrophil % 67.5 % [facility] Neutrophil Absolute 5.26 1.70 - 6.10 x10(3)/[facility] Lymph % 19.1 % [facility] Lymphocytes Abs 1.5 0.9 - 3.2 x10(3)/[facility] Monocyte % 9.4 % [facility] [place] Monocyte Abs 0.7 0.3 - 0.9 x10(3)/[facility] Eos % 3.2 % [facility] Eosinophils Abs 0.2 0.0 - 0.4 x10(3)/[facility] Basophil % 0.4 % [facility] [place] Baso Absolute 0.0 0.0 - 0.1 x10(3)/[facility] Immature Gran % 0.40 % [facility] Comment: Immature granulocytes(IG's)percentage and absolute count will include metamyelocytes, myelocytes, and promyelocytes. Blood smears from CBCs yielding IG's will be scanned manually for concordance. If this scan disagrees with the automated IG or if promyelocytes are noted, a manual differential will be performed. Immature Gran Absolute 0.03 0.00 - 0.04 x10(3)/[facility] Blood 08/30/2023 3:09 AM EDT 08/30/2023 3:21 AM EDT Narrative Resulting Agency Comment Spec In Lab Archie Mcmanus MD HEMATOLOGY ORDERABLE S [facility] [place] [address] * (ABNORMAL) Hemogram (08/30/2023 3:09 AM EDT) Pathologist [facility] White Blood Cell 7.8 4.0 - 9.5 [...] HOSPITAL LABORATORY Platelet 176 145 - 357 x10(3)/[facility] LABORATORY RDW Standard Deviation 46.5(H) 37.0 - 46.[address] [facility] RDW coefficient of variation 13.2 11.5 - 14.1 % [facility] Mean Platelet Volume 10.9 7.6 - 12.[address] [facility] NRBC% auto 0.0 % [facility] NRBC Absolute 0.000 0.000 - 0.000 x10(3)/[facility] LAB[facility] Blood 08/30/2023 3:09 AM EDT 08/30/2023 3:21 AM EDT Narrative Resulting Agency Comment Spec In Lab Archie Mcmanus MD HEMATOLOGY ORDERABLE S [facility] [place] [address] * Heparin (unfractionated) Level (08/30/2023 3:09 AM EDT) UF Heparin 0.46 IU/mL [facility] Comment: Heparin [...] Narrative Resulting Agency Comment Spec In Lab rAchie Mcmanus MD HEMATOLOGY ORDERABLE S Performing Organization Address [facility] Co de Phone Number [facility] [address] * Magnesium (08/30/2023 3:09 AM EDT) Magnesium 0.74 0.69 - 1.07 mmol/L [facility] Blood 08/30/2023 3:09 AM EDT 08/30/2023 3:20 AM EDT Narrative Resulting Agency Comment Spec In Lab Eufemia Copeland MD CHEMISTRY ORDERABL ES Performing Organization Address [facility] Co de Phone Number [facility] [place] [address] * (ABNORMAL) Basic Metabolic Panel (non-fasting) (08/30/2023 [...] MD CHEMISTRY ORDERABLES [facility] [place] [address] * Heparin (unfractionated) Level (08/29/2023 5:49 PM EDT) UF Heparin 0.52 IU/[facility] ORDERABLE S Performing Organization Address [facility] Co de Phone Number [facility] [address] * EKG 12 Lead (08/29/2023 3:05 PM EDT) Ventricular rate 56 BPM MUSE SYSTEM Atrial Rate 56 BPM MUSE SYSTEM P-R Interval 172 ms MUSE SYSTEM QRS Duration 86 ms MUSE SYSTEM Q-T Interval 560 ms MUSE SYSTEM QTC Calculated (Bezet) 540 ms MUSE SYSTEM Calculated P Chazy 10 degrees MUSE SYSTEM Calculated R Chazy 27 degrees MUSE SYSTEM Calculated T Chazy 8 degrees MUSE SYSTEM INTERPRETATION Sinus bradycardia [...] Mcmanus MD ECG ORDERABLES Performing Organization Address [facility] de Phone Number MUSE SYSTEM * Heparin (unfractionated) Level (08/29/2023 11:48 AM EDT) UF Heparin 0.55 IU/mL [facility] Comment: Heparin [...] ORDERABLE S [facility] [place] [address] * ECHO LMTD W CONTRAST W LMTD SPEC DOPP COLOR DOPP (08/29/2023 11:35 AM EDT) EF 50 [facility]ART[facility] SYSTEM Anatomical Region Laterality Modality Cardiac Other 08/29/2023 9:47 AM EDT Narrative 08/29/2023 12:27 PM EDT 1 [place] [address] ? Echocardiogram Report Name: LOIDA MADRIGAL ? Study Date: 08/29/2023 09:47 AMBP: 100/55 mmHg ? Patient Location: [id number] A : 1970 ? Height: 163 cm ? Account: [id number] Age: 53 yrs ? Weight: 102 kg [...] of the anterior wall. Procedure Limited - 16814. Image enhancement Optison was used for left [...] Note Jaspreet Kinsey MD - 08/29/2023 1 [place] [address] Echocardiogram Report Name: LOIDA MADRIGAL Study Date: 409:47 AMBP: 100/55 mmHg Patient Location: [address] : 1970 Height: 163 cm Account: [id number] Age: 53 yrs Weight: 102 kg Gender: [...] function of the anteriorwall. Procedure Limited - 35030. Image enhancement Optison was used for left [...] (Bezet) 546 ms MUSE SYSTEM Calculated P Chazy 21 degrees MUSE SYSTEM Calculated R Chazy 21 degrees MUSE SYSTEM Calculated T Chazy 0 degrees MUSE SYSTEM INTERPRETATION Sinus bradycardia Possible Lateral infarct (cited on or before 29-JUL-2023) Prolonged QT Abnormal ECG When compared with ECG of 29-JUL-2023 08:47, Premature atrial complexes are no longer Present Criteria for Septal infarct are no longer Present Nonspecific T wave abnormality, improved in Inferior leads QT has lengthened Confirmed by MD Amelie, Jaspreet ([id number]) on 08/29/2023 3:51:39 PM MUSE SYSTEM 08/29/2023 [...] ORDERABL ES Performing Organization Address [facility]/ZIP Co de Phone Number [facility] [place] [address] * Sedimentation rate (08/29/2023 4:01 AM EDT) Pathologist [facility] Sedimentation Rate Automated 11 2 - 39 [...] ORDERAB LES Performing Organization Address [facility]/ZIP Co de Phone Number [facility] [place] [address] * Green Tube HOLD (08/29/2023 4:01 AM EDT) [facility] Green Hold Sample in lab. [facility] Blood Venous Draw / Unknown 08/29/2023 4:01 AM EDT 08/29/2023 4:09 AM EDT Archie Mcmanus MD CHEMISTRY ORDERABLES Performing Organization Address [facility]/ZIP Co de Phone Number [facility] [place] [address] * Differential, Automated (08/29/2023 4:01 AM EDT) Neutrophil % 65.6 % [facility] Neutrophil Absolute 5.23 1.70 - 6.10 x10(3)/mcL [facility] Lymph % 21.4 % [facility] Lymphocytes Abs 1.7 0.9 - 3.2 x10(3)/[facility] Monocyte % 8.5 % [facility] Monocyte Abs 0.7 0.3 - 0.9 x10(3)/[facility] Eos % 4.0 % [facility] Eosinophils Abs 0.3 0.0 - 0.4 x10(3)/[facility] Basophil % 0.4 % [facility] Baso Absolute 0.0 0.0 - 0.1 x10(3)/[facility] Immature Gran % 0.10 % [facility] Comment: Immature granulocytes(IG's)percentage and absolute count will include metamyelocytes, myelocytes, and promyelocytes. Blood smears from CBCs yielding IG's will be scanned manually for concordance. If this scan disagrees with the automated IG or if promyelocytes are noted, a manual differential will be performed. Immature Gran Absolute 0.01 0.00 - 0.04 x10(3)/[facility] Blood 08/29/2023 4:01 AM EDT 08/29/2023 4:08 AM EDT Narrative Resulting Agency Comment Spec In Lab Archie Mcmanus MD HEMATOLOGY ORDERABLE S Performing Organization Address City/State/[facility] Co de Phone Number [facility] [place] [address] * (ABNORMAL) Hemogram (08/29/2023 4:01 AM EDT) White Blood Cell 8.0 4.0 - 9.5 x10(3)/mc L [facility] Red Blood Cell 3.91(L) 4.00 - 5.21 x10(6)/mc L [facility] [...] Platelet 197 145 - 357 x10(3)/mc L [facility] RDW Standard Deviation 46.7(H) 37.0 - 46.[address] [facility] RDW coefficient of variation 13.3 11.5 - 14.1 % [facility] Mean Platelet Volume 10.4 7.6 - 12.[address] [facility] NRBC% auto 0.0 % [facility] NRBC Absolute 0.000 0.000 - 0.000 x10(3)/mc L [facility] Blood 08/29/2023 4:01 AM EDT 08/29/2023 4:08 AM EDT Narrative Resulting Agency Comment Spec In Lab Archie Mcmanus MD HEMATOLOGY ORDERABLE S [facility] [place] [address] * (ABNORMAL) Heparin (unfractionated) Level (08/29/2023 4:01 [...] HEMATOLOGY ORDERABLE S [facility] [place] [address] * (ABNORMAL) Basic Metabolic Panel (non-fasting) (08/29/2023 [...] MD CHEMISTRY ORDERABLES [facility] [place] [address] * (ABNORMAL) Troponin (08/29/2023 12:31 AM EDT) Pathologist [facility] Troponin-T, High Sensitivity 31(H) <=14 ng/L ST. [...] troponin value can be found in the [facility] Test Catalog Troponin - [facility] Test Catalog Reference: Fourth [place] Definition of Myocardial Infarction. Journal of the [employer] 2018;72:[id number] Blood 08/29/2023 12:3 1 AM EDT 08/29/2023 12:35 AM EDT Narrative Resulting Agency Comment Spec In Lab Archie Mcmanus MD CHEMISTRY ORDERABLES Performing Organization Address City/[facility]/[place] [address] * Differential, Automated (08/28/2023 9:07 PM EDT) Neutrophil % 59.8 % [facility] Neutrophil Absolute 4.06 1.70 - 6.10 x10(3)/[facility] Lymph % 28.8 % [facility] Lymphocytes Abs 2.0 0.9 - 3.2 x10(3)/[facility] Monocyte % 5.7 % [facility] Monocyte Abs 0.4 0.3 - 0.9 x10(3)/[facility] Eos % 4.6 % [facility] Eosinophils Abs 0.3 0.0 - 0.4 x10(3)/[facility] Basophil % 0.7 % [facility] Baso Absolute 0.0 0.0 - 0.1 x10(3)/[facility] Immature Gran % 0.40 % [facility] Comment: Immature granulocytes(IG's)percentage and absolute count will include metamyelocytes, myelocytes, and promyelocytes. Blood smears from CBCs yielding IG's will be scanned manually for concordance. If this scan disagrees with the automated IG or if promyelocytes are noted, a manual differential will be performed. Immature Gran Absolute 0.03 0.00 - 0.04 x10(3)/[facility] Blood 08/28/2023 9:07 PM EDT 08/28/2023 9:12 PM EDT Narrative Resulting Agency Comment Spec In Lab Archie Mcmanus MD HEMATOLOGY ORDERABLE S Performing Organization Address City/[facility]/ZIP Co de Phone Number [facility] [place] [address] * (ABNORMAL) Hemogram (08/28/2023 9:07 PM EDT) [facility] White Blood Cell 6.8 4.0 - 9.5 x10(3)/mc L [facility] Red Blood Cell 4.39 4.00 - 5.21 x10(6)/mc L [facility] Hemoglobin 14.1 [...] HOSPITAL LABORATORY Platelet 234 145 - 357 x10(3)/[facility] LAB[facility]AT[facility] RDW Standard Deviation 47.3(H) 37.0 - 46.[address] [facility] RDW coefficient of variation 13.3 11.5 - 14.1 % [facility] Mean Platelet Volume 10.3 7.6 - 12.[address] [facility] NRBC% auto 0.0 % [facility] NRBC Absolute 0.000 0.000 - 0.000 x10(3)/[facility] LAB[facility] Blood 08/28/2023 9:07 PM EDT 08/28/2023 9:12 PM EDT Narrative Resulting Agency Comment Spec In Lab Archie Mcmanus MD HEMATOLOGY ORDERABLE S [facility] [place] [address] * (ABNORMAL) Heparin (unfractionated) Level (08/28/2023 9:07 PM EDT) [facility] UF Heparin 1.90(Crit ical) IU/mL [facility] [...] HEMATOLOGY ORDERABLE S [facility] [place] [address] * Lipid Panel (Reflex Direct LDL) (08/28/2023 9:07 PM EDT) [facility] Cholesterol, Total 203 mg/dL [facility] Comment: Desirable: ? <200 mg/dL Borderline High: 200-239 mg/dL Higher: ?>oo=664 mg/dL Triglyceride 146 mg/dL [facility] Comment: Normal: ?<150 mg/dL Borderline High: 150-199 mg/dL High: ?200-499 mg/dL Very High: ? >be=749 mg/dL HDL Cholesterol 52 mg/dL [facility] Comment: Females: High Risk: <50 mg/dL Males: High Risk: <40 mg/dL LDL Cholesterol 122 mg/dL [facility] Comment: Desirable: ? <100 mg/dL Above Desirable: 100-129 mg/dL Borderline High: 130-159 mg/dL High: ?160-189 mg/dL Very High: ? >rk=187 mg/dL Lipid Interpretation See Note [facility] [...] ACC/AHA Guidelines (most recently Ysabel et al. [facility] 12/09/21): For individuals with atherosclerotic cardiovascular disease (ASCVD)or LDL >xa=372 mg/dL, use a high-intensity statin (40-80 mg [...] Mcmanus MD CHEMISTRY ORDERABLES Performing Organization Address City/[facility]/ZIP Co de Phone Number [facility] [place] [address] * (ABNORMAL) pro-Brain Natriuretic Peptide (08/28/2023 9:07 PM EDT) NT-proBNP 2,854(H) <=124 pg/mL [facility] Blood 08/28/2023 9:07 PM EDT 08/28/2023 9:12 PM EDT Narrative Resulting Agency Comment Spec In Lab Archie Mcmanus MD CHEMISTRY ORDERABLES Performing Organization Address [facility] Co de Phone Number [facility] [place] [address] * (ABNORMAL) Troponin (08/28/2023 9:07 PM EDT) [...] troponin value can be found in the [facility] Laboratory Test Catalog Troponin - [facility] Test Catalog Reference: Fourth [place] Definition of Myocardial Infarction. Journal of the [place] [employer] 2018;72:[id number] Blood 08/28/2023 9:07 PM EDT 08/28/2023 9:12 PM EDT Narrative Resulting Agency Comment Spec In Lab Archie Mcmanus MD CHEMISTRY ORDERABLES Performing Organization Address [facility] Co de Phone Number [facility] [place] [address] * (ABNORMAL) Hepatic Function Panel (08/28/2023 9:07 PM EDT) Pathologist [facility] Protein, Total 6.6 6.1 - 8.0 g/dL [...] CHEMISTRY ORDERABLES Performing Organization Address [facility] Co de Phone Number [facility] [place] [address] * (ABNORMAL) Basic Metabolic Panel (non-fasting) (08/28/2023 9:07 PM EDT) [facility] Glucose 95 65 - 199 mg/dL ST. [...] MD CHEMISTRY ORDERABLES [facility] [place] [address] * Magnesium (08/28/2023 9:07 PM EDT) Magnesium 1.05 0.69 - 1.07 mmol/L [facility] Blood 08/28/2023 9:07 PM EDT 08/28/2023 9:12 PM EDT Narrative Resulting Agency Comment Spec In Lab Archie Mcmanus MD CHEMISTRY ORDERABLES Performing Organization Address City/State/[facility] Co de Phone Number [facility] [place] [address] documented in this encounter Visit Diagnoses Diagnosis [...] 40 mg, Oral, DAILY, First dose on [place] 08/29/23 at 0900, Until Discontinued 0840 (Given - Provider: Chayo Painting RN) 08 (Given - Provider: Tim Cardoza RN) 08 (Given - Provider: Tim Cardoza, ERWIN) ranolazine ER (Ranexa) tablet 500 mg 500 mg, Oral, 2 TIMES DAILY, First dose (after last modification) on [facility] 09/02/23 at 2100, Until Discontinued, DO NOT [...] Oral, 2 TIMES DAILY, First dose on [facility] 08/28/23 at 2145, Until Discontinued, Routine 0839 [...] RN) documented in this encounter Care Teams Land Use Planner Relationship Specialty Start Date End Date Polo Pearce PA [address] [place] [address] PCP - General Internal Medicine 06/09/21 documented as of this encounter
--- OUTSIDE RECORDS SUMMARY | 2024-01-24 21:06 | XMS_ITS | Encounter Summary ---
Author Organization [facility] [place] [address] Care Team Providers Care Spice Miller Name Role Phone Polo Pearce Primary Care Provider [phone] Encounter Details Date Type Department Care Team (Late st Contact Info) Description 08/28/2023 [place] [id number] [place] [address] Social History Tobacco Use Types Packs/Day Years Used Date Smoking Tobacco: Never Smokeless Tobacco: Never Alcohol Use Standard Drinks/Week Comments Never 0 (1 standard drink = 0.6 oz pur e alcohol) [facility] Utilities Answer Date Recorded In the past 12 months has e [employer], gas, oil, or water [employer] threatened to shut off services in your [...] a slight decrease in LV systolic function. [facility] 04/2023 Coronary Angiography: Dominance: Right Left [...] PM EST Office Visit Cardiology at [address] [place] [address] Jaspreet Kinsey MD [facility] [place] [address] documented as of this encounter Visit Diagnoses Not on filedocumented in this encounter Care Teams Spice Miller Relationship Specialty Start Date End Date Polo Pearce PA [address] [place] [address] PCP - General Internal Medicine 06/09/21 documented as of this encounter
--- OUTSIDE RECORDS SUMMARY | 2024-01-24 21:06 | XMS_ITS | Encounter Summary ---
Author Organization [facility] [place] [address] Care Team Providers Care Histologic Technician Name Role Phone Polo Pearce Primary Care Provider [phone] Encounter Details Date Type Department Care Team (Late st Contact Info) Description 08/28/2023 External [place] [address] Social History Tobacco Use Types Packs/Day Years [...] PM EST Office Visit Cardiology at [address] [place] [address] [facility] [place] [address] documented as of this encounter Procedures Procedure Name Priority Date/Time Associated Diagnosis Comments ECG SCAN Routine 08/28/2023 11:53 AM EDT documented in this encounter Results * Scan Doc: ECG (08/28/2023 11:53 AM EDT) Historical Provider MD FLEMING MGR SCAN EX T ORDR/RSLT documented in this encounter Visit Diagnoses Not on filedocumented in this encounter Care Teams Histologic Technician Relationship Specialty Start Date End Date Polo Pearce PA [address] [place] [address] PCP - General Internal Medicine 06/09/21 documented as of this encounter
--- OUTSIDE RECORDS SUMMARY | 2024-01-24 21:07 | XMS_ITS | Encounter Summary ---
[place] [address] Care Team Providers Care Teacher Of The Hearing Impaired Name Role Phone Polo Pearce Primary Care Provider [phone] Reason for Referral * Diagnostic Test (Routine) - Pending Review Specialty Diagnoses / Procedures Referred By Jayant harris Referred To Contact Diagnoses Mesenteric ischemia Procedures Duplex Study Visceral Arteries, Comp Judith Pickens APRN [facility] [place] [address] [facility] Vascular Lab [address] [place] [phone] Referral ID Status Reason Start Date Expiration Date Visits Requested Visits Authorized [id number] Pending Review Specialty Service Requested 08/03/2023 08/02/2024 1 1 Encounter Details Date Type Department Care Team (Late st Contact Info) Description 08/03/2023 9:30 AM EDT Office [place] [address] Judith Pickens APRN [facility] [place] [address] Mesenteric ischemia Social History Tobacco [...] this encounter Progress Notes * Judith Pickens, AIDS SOCIAL WORKER - 08/03/2023 9:30 AM EDT Vascular Follow-Up [...] needed. fluticasone propionate (FLONASE) 50 mcg/actuation [place], Suspension 1 spray by Each Nare route [...] Text Report Department: Vascular Surgery Lab Patient: [id number] (LOIDA ROQUE) CPT: [id number] Referring Physician: MAMIE LARRY Phone: Indications: S/p SMA stenting (07/01) one month f/u, ? patency Findings: Unilateral Waveform PSV cm/s EDV cm/s Patent Dary Visceral Aorta 71 14 Celiac Artery, Proximal [place]ic 100 22 Celiac Artery, Mid [place] 99 19 Celiac Artery, Distal [place]ic 94 18 Sup Mes Artery Proximal Bi-Triphasic [...] within mesenteric artery stents may differ from [place] arteries, with thresholds for diagnosis of significant stenosis likely being somewhat higher in stented arteries than [place].% To date, there is no evidence based consensus of stent velocity criteria. Therefore, the curre nt interpretation is based on [place] artery thresholds. Previous Celiac/Mesenteric Studies: Date SMA PSV EDV Celiac PSV EDV 427 91 546 71 4819/04/29 289 27 116 20 Current Exam 316 [...] Time Provider Department Center 08/17/2023 1:15 PM [facility] NM PET MOBILE MH Nuc Med [facility] Rad 08/25/2023 10:00 AM Mary Reyes APRN [facility] GASTRO [facility] 10/26/2023 4:00 PM Jaspreet Kinsey MD [facility] Cardio [facility] 11/22/2023 4:40 PM Porsha Mcdaniels MD [facility] CARD 4A [facility] Judith Pickens APRN Department of Vascular Surgery documented in this encounter Plan of Treatment Upcoming Encounters Date Type Department Care Team (Late st Contact Info) Description 02/10/2024 1:00 PM EST Office Visit Cardiology at [address] [place] [phone] Jaspreet Kinsey MD [facility] [place] [address] documented as of this encounter Results * Duplex Study Visceral Arteries, Comp (10/08/2023 8:22 AM EDT) VB Text Report Department: Vascular Surgery Lab Patient: [id number] (LOIDA ROQUE) CPT: [id number] Referring Physician: JUDITH PICKENS ?? Phone: Indications: [...] within mesenteric artery stents may differ from [place] arteries, with thresholds for diagnosis of significant stenosis likely being somewhat higher in stented arteries than [place].% To date, there is no evidence based consensus of stent velocity criteria. Therefore, the current interpretation is based on [place] artery thresholds. Previous Celiac/Mesenteric Studies: Date ? [...] [facility] 10/08/2023 8:22 AM EDT Judith Pickens AIDS SOCIAL WORKER VASCULAR ORDERABLES [facility] documented in this encounter Visit Diagnoses Diagnosis Mesenteric ischemia Unspecified vascular insufficiency of intestine documented in this encounter Care Teams Teacher Of The Hearing Impaired Relationship Specialty Start Date End Date Polo Pearce PA [address] [place] [address] PCP - General Internal Medicine 06/09/21 documented as of this encounter
--- OUTSIDE RECORDS SUMMARY | 2024-01-24 21:07 | XMS_ITS | Encounter Summary ---
Author Organization [facility] Address [facility] [place] [address] Care Team Providers Care Radio Time Buyer Name Role Phone Polo Pearce Primary Care Provider [phone] Encounter Details Date Type Department Care Team (Latest Contact Info) Description 07/26/2023 Travel Social History Tobacco Use Types Packs/Day Years Used Date Smoking Tobacco: Never Smokeless Tobacco: Never Alcohol Use Standard Drinks/Week Comments Never 0 (1 standard drink = 0.6 oz pur e alcohol) [facility] Utilities Answer Date Recorded In the past 12 months has th e electric, gas, oil, or water [employer] threatened to shut off services in your [...] 1:00 PM EST Office Visit Cardiology at [address] [place] [address] Jaspreet Kinsey MD [facility] [place] [address] documented as of this encounter Visit Diagnoses Not on filedocumented in this encounter Care Teams Radio Time Buyer Relationship Specialty Start Date End Date Polo Pearce PA [address] [place] [id number] PCP - General Internal Medicine 06/09/21 documented as of this encounter
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
--- OUTSIDE RECORDS SUMMARY | 2024-01-24 21:07 | XMS_ITS | Encounter Summary ---
Author Organization [facility] Address [facility] [place] [address] Care Team Providers Care Certified Coding Specialist Name Role Phone Polo Pearce Primary Care Provider [phone] Reason for Visit * Reason Comments Congestive Heart Failure Atrial Fibrillation Encounter Details Date Type Department Care Team (Late st Contact Info) Description 07/26/2023 3:20 PM EDT Office Visit Cardiology at [address] [address] Jaspreet Kinsey MD [facility] [place] [address] Heart failure with preserved ejection fraction, unspecified [...] Recorded In the past 12 months has [employer] electric, gas, oil, or water company threatened [...] Failure Atrial Fibrillation HPI Last seen by mo 05/2023, at which time the comprehensive cardiac [...] Oral, DAILY fluticasone propionate (FLONASE) 50 mcg/actuation [place], Suspension 1 spray, Each Nare, PRN gabapentin [...] sarcoid. Anterior scar pattern 06/2023: Admission at [facility] TTE with low-normal EF, though anterior [...] 1:00 PM EST Office Visit Cardiology at [address] [address] Jaspreet Kinsey MD [facility] [place] [address] documented as of this encounter Visit Diagnoses Diagnosis Heart failure with preserved ejection fraction, unspecified HF chronicity Paroxysmal atrial fibrillation Atrial fibrillation SVT (supraventricular tachycardia) Other specified cardiac dysrhythmias Chest pain, unspecified type documented in this encounter Care Teams Certified Coding Specialist Relationship Specialty Start Date End Date Polo Pearce PA Sb [address] [place] [address] PCP - General Internal Medicine 06/09/21 documented as of this encounter
--- OUTSIDE RECORDS SUMMARY | 2024-01-24 21:07 | XMS_ITS | Encounter Summary ---
Author Organization [facility] Address [facility] [place] [address] Care Team Providers Care Diagnostic Sales Specialist Name Role Phone Polo Pearce Primary Care Provider [phone] Encounter Details Date Type Department Care Team (Latest Contact Info) Description 07/29/2023 Travel Social History Tobacco Use Types Packs/Day Years Used Date Smoking Tobacco: Never Smokeless Tobacco: Never Alcohol Use Standard Drinks/Week Comments Never 0 (1 standard drink = 0.6 oz pur e alcohol) [facility] Utilities Answer Date Recorded In the past 12 months has th e electric, gas, oil, or water [employer] threatened to shut off services in your [...] PM EST Office Visit Cardiology at [address] [place] [address] Jaspreet Kinsey MD [facility] [place] [address] documented as of this encounter Visit Diagnoses Not on filedocumented in this encounter Care Teams Diagnostic Sales Specialist Relationship Specialty Start Date End Date Polo Pearce PA [address] [place] [address] PCP - General Internal Medicine 06/09/21 documented as of this encounter
--- OUTSIDE RECORDS SUMMARY | 2024-01-24 21:07 | XMS_ITS | Encounter Summary ---
Author Organization [facility] Address [facility] [place] [address] Care Team Providers Care Construction Director Name Role Phone Polo Pearce Primary Care Provider [phone] Encounter Details Date Type Department Care Team (Late st Contact Info) Description 07/12/2023 Refill Cardiology at [address] [address] Jaspreet Kinsey MD [facility] [place] [address] Social History Tobacco Use Types Packs/Day Years Used Date Smoking Tobacco: Never Smokeless Tobacco: Never Alcohol Use Standard Drinks/Week Comments Never 0 (1 standard drink = 0.6 oz pur e alcohol) [facility] Utilities Answer Date Recorded In the past 12 months has e electric, gas, oil, or water [employer] threatened to shut off services in your [...] mg., 2-2x daily, none left. Patient uses [facility] in [place], [place]. She can be reached @ [phone]. documented in this encounter Plan of Treatment Upcoming Encounters Date Type Department Care Team (Late st Contact Info) Description 02/10/2024 1:00 PM EST Office Visit Cardiology at [address] [place] [address] Jaspreet Kinsey MD [facility] [place] [address] documented as of this encounter Visit Diagnoses Diagnosis Heart failure with preserved ejection fraction, unspecified HF chronicity documented in this encounter Care Teams Construction Director Relationship Specialty Start Date End Date Polo Pearce PA [address] [place] [address] PCP - General Internal Medicine 06/09/21 documented as of this encounter
--- OUTSIDE RECORDS SUMMARY | 2024-01-24 21:07 | XMS_ITS | Encounter Summary ---
Author Organization [facility] [place] [address] Care Team Providers Care Bell Valet Name Role Phone Polo Pearce Primary Care Provider [phone] Reason for Referral * Diagnostic Test (Routine) - Closed Specialty Diagnoses / Procedures Referred By Contac t Referred To Contact Radiology Diagnoses Chest pain, unspecified type Procedures NM PET CT Cardiac Pharmacologic Stress CT Component Porsha Mcdaniels MD [facility] [place] [address] [place] [address] Referral ID Status Reason Start Date Expiration Date V isits Requested Visits Authorized [id number] Closed Specialty Service Requested 08/03/2023 10/01/2023 1 1 * Diagnostic Test (Routine) - Closed Specialty Diagnoses / Procedures Referred By Contac t Referred To Contact Radiology Diagnoses Chest pain, unspecified type Procedures NM PET CT Cardiac Pharmacologic Stress and Rest Porsha Mcdaniels MD [facility] [place] [address] [place] [address] Referral ID Status Reason Start Date Expiration Date V isits Requested Visits Authorized [id number] Closed Specialty Service Requested 08/03/2023 10/01/2023 1 1 * Diagnostic Test (Routine) - Pending Review Specialty Diagnoses / Procedures Referred By Contac t Referred To Contact Cardiology Diagnoses Chest pain, unspecified type Procedures Nuclear Pharmacologic Stress Cardiology (PET CT Mobile) Porsha Mcdaniels MD [facility] [place] [address] [facility] [place] [address] Referral ID Status Reason Start Date Expiration Date Visits Requested Visits Authorized [id number] Pending Review Specialty Service Requested 07/29/2023 07/28/2024 1 1 Reason for Visit * Consultation (Routine) - Closed Specialty Diagnoses / Procedures Referred By Jayant t Referred To Contact Cardiology Diagnoses Heart failure with preserved ejection fraction, unspecified HF chronicity [place]. thorough evaluation performed to date. Jaspreet Kinsey MD [facility] [place] [address] Porsha Mcdaniels MD [facility] [place] [address] Referral ID Status Reason Start Date Expiration Date V isits Requested Visits Authorized [id number] Closed Consult, Test & Treat 06/09/2023 06/08/2024 1 1 Encounter Details Date Type Department Care Team (Late st Contact Info) Description 07/29/2023 8:00 AM EDT Office Visit Cardiology at [address] [address] Porsha Mcdaniels MD [facility] [place] [address] Chest pain, unspecified type Social History Tobacco Use Types Packs/Day Years Used Date Smoking Tobacco: Never Smokeless Tobacco: Never Alcohol Use Standard Drinks/Week Comments Never 0 (1 standard drink = 0.6 oz pur e alcohol) [facility] Utilities Answer Date Recorded In the past [...] not included. [facility] [place] [address] Referring Provider: Jaspreet Kinsey MD [place] [address] Reason for Consultation / Chief Complaint: [place] [...] [place]. She follows with Dr. Kinsey in [place]. She underwent CCTA 09/27 that showed mild disease in her LAD. She also had a cardiac cath in 2019 with normal cors. 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 Moves all extremities without limitation. [...] Porsha Mcdaniels MD Section of Interventional Cardiology [facility] Steam Plant Control Room Operatoreffervescent salts compounder [facility] 07/29/2023 documented in this encounter Plan of Treatment Upcoming Encounters Date Type Department Care Team (Late st Contact Info) Description 02/10/2024 1:00 PM EST Office Visit Cardiology at [address] [place] [address] Jaspreet Kinsey MD [facility] [place] [address] documented as of this encounter Procedures Procedure Name Priority Date/Time Associated Diagnosis Comments EKG 12-LEAD Routine 07/29/2023 8:47 AM EDT Chest pain, unspecified type documented in this encounter Results * NM PET CT Cardiac Pharmacologic Stress CT Component (08/17/2023 2:38 PM EDT) WORKSTATION ID [id number] RAD Anatomical Region Laterality Modality Positron Emissio [...] who have questions please contact the health ambulatory care coordinator that requested your imaging first. ? Electronically signed by: Clay Stanton MD, [facility] ([phone]), at 08/18/2023 2:49 PM Narrative 08/18/2023 2:49 [...] Coronary calcifications. Bilateral ground glass opacities are [id number] Procedure Note Clay Stanton MD - 08/18/2023 [...] Coronary calcifications. Bilateral ground glass opacities are [id number] IMPRESSION Moderate-sized scar in the apical septum [...] patients who have questions please contactthe health ambulatory care coordinator that requested your imaging first. Electronically signed by: Clay Stanton MD, [facility]([phone]), at 08/18/2023 2:49 PM Porsha Mcfarlane MD IMG PET ORDERABLES * NM PET CT Cardiac Pharmacologic Stress and Rest (08/17/2023 2:38 PM EDT) WORKSTATION ID [id number] [facility] Anatomical Region Laterality Modality Positron Emissio [...] who have questions please contact the health ambulatory care coordinator that requested your imaging first. ? Electronically signed by: Clay Stanton MD, [facility] ([phone]), at 08/18/2023 2:49 PM Narrative 08/18/2023 2:49 [...] Coronary calcifications. Bilateral ground glass opacities are [id number] Procedure Note Clay Stanton MD - 08/18/2023 [...] Coronary calcifications. Bilateral ground glass opacities are [id number] IMPRESSION Moderate-sized scar in the apical septum [...] patients who have questions please contactthe health ambulatory care coordinator that requested your imaging first. Electronically signed by: Clay Stanton MD, [facility]([phone]), at 08/18/2023 2:49 PM Porsha Mcfarlane MD [...] (Bezet) 418 ms MUSE SYSTEM Calculated P [place] 6 degrees MUSE SYSTEM Calculated R [place] 34 degrees MUSE SYSTEM Calculated T [place] -73 degrees MUSE SYSTEM INTERPRETATION Sinus bradycardia [...] type documented in this encounter Care Teams Bell Valet Relationship Specialty Start Date End Date Polo Pearce PA [address] [place] [address] PCP - General Internal Medicine 06/09/21 documented as of this encounter
--- OUTSIDE RECORDS SUMMARY | 2024-01-24 21:07 | XMS_ITS | Encounter Summary ---
Author Organization [facility] [place] [address] Care Team Providers Care Can Slider Name Role Phone Polo Pearce Primary Care Provider [phone] Encounter Details Date Type Department Care Team (Late st Contact Info) Description 07/13/2023 Telephone Cardiology at [address] [phone] Sydney Gamez RN Social History Tobacco Use Types Packs/Day Years Used Date Smoking Tobacco: Never Smokeless Tobacco: Never Alcohol Use Standard Drinks/Week Comments Never 0 (1 standard drink = 0.6 oz pur e alcohol) [facility] Utilities Answer Date Recorded In the past 12 months has e [employer], gas, oil, or water [employer] threatened to shut off services in your [...] like the letter [email or web address] when completed. Will forward to her providers [...] appointments: During 8am-5pm Wednesday through Wednesday call [phone] to speak with a nurse in the cardiology clinic All other times call [phone] and ask to speak to the superintendent of schools regional sales leader. Return to work: One week Driving: No driving for 48 hours after catheterization. Follow up Appointments: PCP JOCY Franco [phone] 11:30am on July 19. Cardiology office will [...] PM EST Office Visit Cardiology at [address] [place] [address] Jaspreet Kinsey MD [facility] [place] [address] documented as of this encounter Visit Diagnoses Not on filedocumented in this encounter Care Teams Can Slider Relationship Specialty Start Date End Date Polo Pearce PA [address] [place] [address] PCP - General Internal Medicine 06/09/21 documented as of this encounter
--- OUTSIDE RECORDS SUMMARY | 2024-01-24 21:07 | XMS_ITS | Encounter Summary ---
Author Organization Replaced By [facility] [place] [address] Care Team Providers Care Public Health Technician Name Role Phone Polo Pearce Primary Care Provider [phone] Reason for Referral * Diagnostic Test (Routine) - Closed Specialty Diagnoses / Procedures Referred By Contac t Referred To Contact Radiology Diagnoses Chest pain, unspecified type Procedures NM PET CT Cardiac Pharmacologic Stress CT Component Porsha Mcdaniels MD [facility] [place] [address] [place] [address] Referral ID Status Reason Start Date Expiration Date V isits Requested Visits Authorized [id number] Closed Specialty Service Requested 08/03/2023 10/01/2023 1 1 * Diagnostic Test (Routine) - Closed Specialty Diagnoses / Procedures Referred By Contac t Referred To Contact Radiology Diagnoses Chest pain, unspecified type Procedures NM PET CT Cardiac Pharmacologic Stress and Rest Porsha Mcdaniels MD [facility] [place] [address] [place] [address] Referral ID Status Reason Start Date Expiration Date V isits Requested Visits Authorized [id number] Closed Specialty Service Requested 08/03/2023 10/01/2023 1 1 Reason for Visit * Diagnostic Test (Routine) - Closed Specialty Diagnoses / Procedures Referred By Contac t Referred To Contact Radiology Diagnoses Chest pain, unspecified type Procedures NM PET CT Cardiac Pharmacologic Stress and Rest Porsha Mcdaniels MD [facility] [place] [address] [place] [address] Referral ID Status Reason Start Date Expiration Date V isits Requested Visits Authorized [id number] Closed Specialty Service Requested 08/03/2023 10/01/2023 1 1 Encounter Details Date Type Department Care Team (Latest Contact Info) Description 08/17/2023 11:52 AM EDT Hospital Encounter [place] [address] Porsha Mcdaniels MD [facility] [place] [address] Chest pain, unspecified type Discharge Disposition: Home Social History Tobacco Use Types Packs/Day Years Used Date Smoking Tobacco: Never Smokeless Tobacco: Never Alcohol Use Standard Drinks/Week Comments Never 0 (1 standard drink = 0.6 oz pur e alcohol) [facility] Utilities Answer Date Recorded In the past 12 months has [employer], gas, oil, or water company threatened [...] as needed. fluticasone propionate (FLONASE) 50 mcg/actuation [place], Suspension 1 spray by Each Nare route [...] Use with spacer torsemide (Demadex) 20 mg tabletIndications:Heart failure with preserved ejection fraction, unspecified HF chronicity Take 2 tablets by mouth 2 times daily. 180 tablet 07/14/2023 10/28/2023 metoprolol succinate XL (Toprol-XL) 25 mg ER 24 hr tablet Take 0.5 tablets by mouth daily. 45 tablet 3 07/26/2023 09/10/2023 metOLazone (Zaroxolyn) 2.5 mg tablet Take 1 [...] PM EST Office Visit Cardiology at [address] [place] [address] Jaspreet Kinsey MD [facility] [place] [address] documented as of this encounter Procedures Procedure [...] Component (08/17/2023 2:38 PM EDT) WORKSTATION ID [id number] RAD Anatomical Region Laterality Modality Positron Emissio [...] who have questions please contact the health senior resident care director that requested your imaging first. ? Narrative 08/18/2023 2:49 PM EDT EXAMINATION: NM PET CT CARDIAC PHARMACOLOGIC STRESS AND REST, [place] PET CT CARDIAC PHARMACOLOGIC STRESS CT COMPONENT [...] Coronary calcifications. Bilateral ground glass opacities are [id number] Procedure Note Clay Stanton MD - 08/18/2023 EXAMINATION: KS PET CT CARDIAC PHARMACOLOGIC STRESS AND REST, [place] PET CTCARDIAC PHARMACOLOGIC STRESS CT COMPONENT CLINICAL [...] Coronary calcifications. Bilateral ground glass opacities are [id number] IMPRESSION Moderate-sized scar in the apical septum [...] patients who have questions please contactthe health senior resident care director that requested your imaging first. Porsha Mcfarlane MD IMG PET ORDERABLES * NM PET CT Cardiac Pharmacologic Stress and Rest (08/17/2023 2:38 PM EDT) WORKSTATION ID [id number] RAD Anatomical Region Laterality Modality Positron Emissio [...] who have questions please contact the health senior resident care director that requested your imaging [...] Coronary calcifications. Bilateral ground glass opacities are [id number] Procedure Note Clay Stanton MD - 08/18/2023 [...] Coronary calcifications. Bilateral ground glass opacities are [id number] IMPRESSION Moderate-sized scar in the apical septum [...] patients who have questions please contactthe health senior resident care director that requested your imaging first. Porsha Mcfarlane MD [facility] PET ORDERABLES documented in this encounter Visit [...] Arm documented in this encounter Care Teams Public Health Technician Relationship Specialty Start Date End Date Polo Pearce PA [address] [place] [address] PCP - General Internal Medicine 06/09/21 documented as of this encounter
--- OUTSIDE RECORDS SUMMARY | 2024-01-24 21:07 | XMS_ITS | Encounter Summary ---
[place] [address] Care Team Providers Care Field Service Specialist Name Role Phone Polo Pearce Primary Care Provider [phone] Encounter Details Date Type Department Care Team (Late st Contact Info) Description 08/03/2023 8:30 AM EDT Tech Visit [place] [id number] Eladio Boyer Mesenteric ischemia Social History Tobacco Use Types Packs/Day Years Used Date Smoking Tobacco: Never Smokeless Tobacco: Never Alcohol Use Standard Drinks/Week Comments Never 0 (1 standard drink = 0.6 oz pur e alcohol) [facility] Utilities Answer Date Recorded In the past 12 months has e [employer], gas, oil, or water [employer] threatened to shut off services in your [...] 1:00 PM EST Office Visit Cardiology at [address] [address] Jaspreet Kinsey MD [facility] [place] [address] documented as of this encounter Procedures Procedure Name Priority Date/Time Associated Diagnosis Comments MESENTERIC COMPLETE Routine 08/03/2023 8 :36 AM EDT Mesenteric ischemia documented in this encounter Results * Duplex Study Visceral Arteries, Comp (08/03/2023 8:36 AM EDT) VB Text Report Department: Vascular Surgery Lab Patient: [id number] (LOIDA ROQUE) CPT: 14516 Referring Physician: MAMIE MARX ?? Phone: Indications: S/p SMA stenting (07/01) one month f/u, ? patency Findings: Unilateral ? Waveform ? PSV cm/s ??EDV cm/s ??Patent ?? Dary Visceral Aorta ? 71 ?14 ? Celiac Artery, Proximal ??[place]-Biphasic ? 100 ?22 ? Celiac Artery, Mid ? [place]-Biphasic ?99 ?19 ? Celiac Artery, Distal ?[place]-Biphasic ?94 ?18 ? Sup Mes Artery Proximal [...] within mesenteric artery stents may differ from wilton arteries, with thresholds for diagnosis of significant stenosis likely being somewhat higher in stented arteries than wilton.% To date, there is no evidence based consensus of stent velocity criteria. Therefore, the current interpretation is based on wilton artery thresholds. Previous Celiac/Mesenteric Studies: Date ? [...] intestine documented in this encounter Care Teams Field Service Specialist Relationship Specialty Start Date End Date Polo Pearce PA [address] [place] [address] PCP - General Internal Medicine 06/09/21 documented as of this encounter
--- OUTSIDE RECORDS SUMMARY | 2024-01-24 21:07 | XMS_ITS | Encounter Summary ---
Author Organization [facility] Address [facility] [place] [address] Care Team Providers Care Meter Repair Shop Supervisor Name Role Phone Polo Pearce Primary Care Provider [phone] Encounter Details Date Type Department Care Team (Latest Contact Info) Description 08/03/2023 Travel Social History Tobacco Use Types Packs/Day Years Used Date Smoking Tobacco: Never Smokeless Tobacco: Never Alcohol Use Standard Drinks/Week Comments Never 0 (1 standard drink = 0.6 oz pur e alcohol) [facility] Utilities Answer Date Recorded In the past 12 months has th e electric, gas, oil, or water [employer] threatened to shut off services in your [...] PM EST Office Visit Cardiology at [address] [place] [address] Jaspreet Kinsey MD [facility] [place] [address] documented as of this encounter Visit Diagnoses Not on filedocumented in this encounter Care Teams Meter Repair Shop Supervisor Relationship Specialty Start Date End Date Polo Pearce PA [address] [place] [address] PCP - General Internal Medicine 06/09/21 documented as of this encounter
--- OUTSIDE RECORDS SUMMARY | 2024-01-24 21:09 | XMS_ITS | Encounter Summary ---
[place] [address] Care Team Providers Care Interior Designer Name Role Phone Polo Pearce Primary Care Provider [phone] Reason for Visit * Auth/Cert (Routine) Specialty Diagnoses / Procedures Referred By Contac t Referred To Contact Diagnoses NSTEMI (non-ST elevated myocardial infarction) NSTEMI Procedures ER Lloyd Pantoja MD [facility] [address] [facility] Referral ID Status Reason Start Date Expiration Date Visits Re quested Visits Authorized [id number] 1 1 Encounter Details Date Type Department Care Team (Late st Contact Info) Description 07/07/2023 2:05 PM EDT Anesthesia [place] [address] Constantine Velez MD [facility] [place] [address] Anesthesia Record Procedure Summary Procedure Name Responsible [...] In the past 12 months has e [employer], gas, oil, or water [employer] threatened to shut off services in your [...] Procedure Summary Date: 07/07/23 Room / Location: [facility] ENDO 5 / [facility] Anesthesia Start: 1405 Anesthesia Stop: 151 Procedures: EGD WITH BIOPSY (WRVU 2.39) (Trunk) COLONOSCOPY FLEXIBLE, WITH BX (WRVU 3.56) (Trunk) Diagnosis: (post prandial pain) Surgeons: Lashonda Villa MD Responsible Provider: Constantine Velez MD Anesthesia Type: general ASA Status: 4 All Anesthesia Providers: Anesthesiologist: Constantine Velez MD SURGICAL SCRUB TECHNOLOGIST: Darío Barlow CRNA Cricket Coach: Lawrence Lopez MD Vitals Value Taken Time BP 96/51 07/07/23 1530 Temp Pulse Resp SpO2 100 % 07/07/23 1537 Pain Level 1 07/07/23 1510 Vitals shown include unfiled device data. Patient Location: PACU/[facility] Level of Consciousness: Awake and Alert [...] PM EST Office Visit Cardiology at [address] [place] [address] Jaspreet Kinsey MD [facility] [address] documented as of this encounter Visit Diagnoses [...] mg documented in this encounter Care Teams Interior Designer Relationship Specialty Start Date End Date Polo Pearce PA [address] [place] [address] PCP - General Internal Medicine 06/09/21 documented as of this encounter
--- OUTSIDE RECORDS SUMMARY | 2024-01-24 21:09 | XMS_ITS | Encounter Summary ---
Author Organization [facility] [place] [address] Care Team Providers Care Upper Stitcher Name Role Phone Polo Pearce Primary Care Provider [phone] Reason for Referral * Consultation (Routine) - Closed Specialty Diagnoses / Procedures Referred By Jayant harris Referred To Contact Gastroenterology Diagnoses Chronic abdominal pain chronic abd pain after meals Porsha San MD [facility] [place] [address] [facility] [address] [place] [address] Referral ID Status Reason Start Date Expiration Date V isits Requested Visits Authorized [id number] Closed Consult, Test & Treat 07/08/2023 07/07/2024 1 1 Encounter Details Date Type Department Care Team (Late st Contact Info) Description 07/08/2023 Orders [place] [address] Porsha San MD [facility] [place] [address] Chronic abdominal pain Social History [...] PM EST Office Visit Cardiology at [address] [address] Jaspreet Kinsey MD [facility] [place] [address] Scheduled Referrals Name Type Priority Associated Diagnoses Order Schedule Referral to Gastroenterology Outpatient Referral Routine Chronic abdominal pain Ordered: 07/08/2023 documented as of this encounter Visit Diagnoses Diagnosis Chronic abdominal pain Abdominal pain, unspecified site documented in this encounter Care Teams Upper Stitcher Relationship Specialty Start Date End Date Polo Pearce PA [address] [facility] [place] [address] PCP - General Internal Medicine 06/09/21 documented as of this encounter
--- OUTSIDE RECORDS SUMMARY | 2024-01-24 21:09 | XMS_ITS | Encounter Summary ---
[place] [address] Care Team Providers Care Lifter/Driver Name Role Phone Polo Pearce Primary Care Provider [phone] Reason for Referral * Consultation (Routine) - Duplicate Referral Specialty Diagnoses / Procedures Referred By Jayant harris Referred To Contact Gastroenterology Diagnoses Mesenteric artery stenosis Terrence Keating MD [facility] [place] [address] [facility] [address] [place] [phone] Referral ID Status Reason Start Date Expiration Date Visits Requested Visits Authorized [id number] Duplicate Referral Consult, Test & Treat 07/09/2023 07/08/2024 1 1 * Home Health Care (Routine) - Closed Specialty Diagnoses / Procedures Referred By Contjulita t Referred To Contact Diagnoses Paroxysmal atrial fibrillation Chest pain, unspecified type Heart failure with preserved ejection fraction, unspecified HF chronicity Terrence Keating MD [facility] [place] [address] [facility] [address] [place] [address] Referral ID Status Reason Start Date Expiration Date V isits Requested Visits Authorized [id number] Closed Consult, Test & Treat 07/09/2023 01/05/2024 999 999 Reason for Visit * Auth/Cert (Routine) Specialty Diagnoses / Procedures Referred By Contac t Referred To Contact Diagnoses NSTEMI (non-ST elevated myocardial infarction) NSTEMI Procedures ER IPI Terrence Keating MD [facility] [place] [address] [facility] Referral ID Status Reason Start Date Expiration Date Visits Re quested Visits Authorized [id number] 1 1 Encounter Details Date Type Department Care Team (Latest Contact Info) Description 06/14/2023 11:01 PM EDT - 07/09/2023 4:44 PM EDT Hospital Encounter Heart and Vascular Unit Level 4 Wing B at [place] [phone] Jaspreet Kinsey MD [facility] [place] [address] Lino Calles MD [facility] [place] [address] Eufemia Copeland MD [facility] [place] [address] Ailyn Irvin MD [facility] [place] [address] Terrence Keating MD [facility] [place] [address] Paroxysmal atrial fibrillation; Chest pain, unspecified type; [...] Loida Roque Patient Age: 53 y.o. Language: Romanian Race: White Ethnicity: Not nor Admit date: 06/14/2023 Discharge date and time: 07/09/2023 3:31 PM Attending Physician: Terrence Keating MD Discharge Physician: Terrence Keating MD Follow-up Recommendations for Providers: Inpatient Provider Contact Information: For questions regarding this document or issues relating to this hospitalization on the Medical Service, please contact your inpatient physician through the [facility] Pharmaceutical Analyst . Issues afterhours and on weekends will [...] questions please contact the health child care center assistant director that requested your imaging first. Electronically signed by: Wilton Cabrera MD, [facility] ([phone]), at 06/17/2023 5:[address] Abdomen & [...] questions please contact the health child care center assistant director that requested your imaging first. Electronically signed by: RONDA DUFFY MD, [facility] ([phone]), at 06/22/2023 7:59 AM XR Chest One [...] questions please contact the health child care center assistant director that requested your imaging first. Electronically signed by: Itz Hayward MD, [facility] ([phone]), at 06/22/2023 11:47 AM US Abdomen Limited (Exam End: 06/28/2023 12:22 PM) Result Value WORKSTATION ID [id number] Narrative Abdominal (Signed Final 06/28/2023 02:08 pm) PATIENT INFO: ID #: [id number] : [birth year] (53 yrs)(F) Name: LOIDA Visit Date: 06/28/2023 12:20 pm ROHAN PERFORMED BY: Attending: Sigrid Owens MD Resident: Rafaela Huddleston MD Performed By: Deena Cabrera RDMS Referred By: AILYN IRVIN Location: [place] SERVICE(S) PROVIDED: UABDLIM - Abdominal Limited Survey Single 704[address] Organ or Quadrant - [id number] INDICATIONS: RUQ pain, R/o Gall bladder colic, [...] PM Electronically signed by: Sigrid Owens MD, [facility] ([phone]), at 06/28/2023 2:02 PM Thank you for letting us participate in the care of this patient. If you are a health care provider and have any questions regarding this report, please contact the number above. For patients who have questions, please contact the health child care center assistant director that requested your imaging first. Sigrid Owens, [facility] Harness Maker Electronically Signed Final Report 06/28/2023 02:08 [...] anesthetic: 10 cc 1% lidocaine Heparin: Yes 25871 Units Protamine: No mg Antibiotics: Ancef Fluoro [...] We exchanged the sheath for a 7 Maltese river guide steerable sheath over a stiff wire. A Glidewire and Kumpe catheter were used to selectively cannulate the superior mesenteric artery. Direct angiography of the superior mesenteric artery was performed, confirming the results of the nonselective aortography performed. The lesion was predilated with a 4 mm x 40 mm Votaw balloon, and then a 6 mm X [...] 07/03/2023 3:18 PM) Result Value WORKSTATION ID [id number] Narrative EXAMINATION: XR CHEST ONE VIEW CLINICAL [...] questions please contact the health child care center assistant director that requested your imaging first. Electronically signed by: Itz Hayward MD, [facility] ([phone]), at 07/03/2023 3:27 PM Echocardiogram from 06/22/2023 [...] pain. The patient was recently admitted at [facility] from 04/16/23 to 04/19/2023 as a transfer from [facility] due to exertional chest pressure [...] etiology, patient was accepted for transfer to [facility]. Brief Summary: Loida Roque is a 53 [...] with positive cardiac markers. Patient transferred to [facility] for further work-up and evaluation. On arrival, [...] Administered Date(s) Administered Moderna Covid-19 Monovalent 12Yr+ (Women'S Health Care Nurse Practitioner 100mcg) 03/06/2020, 04/03/2020 Discharge Medications: Your Medications [...] weight gain + increasing shortness of breath. [id number] minutes prior to a dose of torsemide). [...] appointments: During 8am-5pm Wednesday through Wednesday call [phone] to speak with a nurse in the cardiology clinic All other times call [phone] and ask to speak to the waxed bag machine operator chairperson anesthesiology. Return to work: One week Driving: No driving for 48 hours after catheterization. Follow up Appointments: PCP JOCY Franco [phone] 11:30am on July 19. Cardiology office will call you regarding your appointment with Dr. Kinsey. General Instructions None Future Appointments and Orders Future Appointments and Orders Future Appointments Provider Department Dept Phone 07/26/2023 3:20 PM Jaspreet Kinsey MD Cardiology at [place] Arrive at: [facility] [address] [phone] 07/29/2023 8:00 AM Porsha Mcdaniels MD Cardiology at [facility] Arrive at: [facility] [address] [phone] 08/03/2023 8:30 AM Eladio Boyer Vascular [facility] at [facility] Arrive at: [facility] [phone] 08/03/2023 9:30 AM Judith Butler APRN Vascular Surgery at [facility] Arrive at: [facility]V [phone] 09/02/2023 2:40 PM Jaspreet Kinsey MD Cardiology at [place] Arrive at: [facility] [address] [phone] Discharge References/Attachments None Greater than 30 minutes was spent on this discharge including documentation, zafy-sq-cypk time withthe patient, patient education, clerical order filler, coordination with pharmacy and other patient care. [...] appointments: During 8am-5pm Wednesday through Wednesday call [phone] to speak with a nurse in the cardiology clinic All other times call [phone] and ask to speak to the waxed bag machine operator chairperson anesthesiology. Return to work: One week Driving: No driving for 48 hours after catheterization. Follow up Appointments: PCP JOCY Franco [phone] 11:30am on July 19. Cardiology office will [...] as needed. fluticasone propionate (FLONASE) 50 mcg/actuation [place], Suspension 1 spray by Each Nare route [...] 4pm, per the team. Please refer to: [facility]. [address] [facility] [address] PHONE: [phone] FAX: [phone] *For RN RICARDO: 07/09/23 Nani Mendoza MSN-Ed, RN ACM Cardiac Research Nurse and Neuro/Neurocrit/ENT Airfield Engineer Officer. * Mary Castaneda RCP - 07/09/2023 4:37 [...] 1:00 PM EDT [facility] 2 - [facility] DAILY PROGRESS NOTE Page [phone] to reach a provider 28/09 Admit Date: [...] with positive cardiac markers. Patient transferred to [facility] for further work-up and evaluation. Presented with [...] prn. Diet: Daily Healthy Menu Choices/Cardiac diet ([facility]-Diet) DVT Prophylaxis: DOAC heparin gtt. 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 Patient transferred to [facility] for further work-up and evaluation. Presented with [...] Cardiopulmonary Resuscitation - Inpatient Disposition: Discharge Location: [facility] Basic Mobility Raw Score: 24 PT: OT: PCP JOCY Franco [phone] Terrence Keating MD 07/07/2023 * Terrence Keating MD - 07/06/2023 11:00 AM EDT [facility] H[facility]PITALIST 2 - [facility] DAILY PROGRESS NOTE Page [phone] to reach a provider 28/09 Admit Date: [...] with positive cardiac markers. Patient transferred to [facility] for further work-up and evaluation. Presented with [...] hospital Diet: Daily Healthy Menu Choices/Cardiac diet ([facility]-Diet) NPO diet (Give Meds) DVT Prophylaxis: DOAC Code status: Attempt Cardiopulmonary Resuscitation - Inpatient Disposition: Discharge Location: AM-P[facility] Basic Mobility Raw Score: 24 PT: OT: PCP JOCY Franco [phone] Terrence Keating MD 07/06/2023 * Ana Paula [...] 11:00 AM EDT [facility]ITAL[facility] 2 - [facility] DAILY PROGRESS NOTE Page [phone] to reach a provider 28/09 Admit Date: [...] with positive cardiac markers. Patient transferred to [facility] for further work-up and evaluation. Presented with [...] hospital Diet: Daily Healthy Menu Choices/Cardiac diet ([facility]-Diet) DVT Prophylaxis: DOAC Code status: Attempt Cardiopulmonary Resuscitation - Inpatient Disposition: Discharge Location: [facility] Basic Mobility Raw Score: 24 PT: OT: PCP JOCY Franco [phone] Terrence Keating MD 07/05/2023 * Lino Calles MD - 07/04/2023 9:09 AM EDT [facility] H[facility]PITALIST 2 - [facility] DAILY PROGRESS NOTE Page [phone] to reach a provider 28/09 Admit Date: [...] with positive cardiac markers. Patient transferred to [facility] for further work-up and evaluation. On arrival, [...] migraine Diet: Daily Healthy Menu Choices/Cardiac diet ([facility]-Diet) DVT Prophylaxis: DOAC Code status: Attempt Cardiopulmonary Resuscitation - Inpatient Disposition: Discharge Location: AM-PAC Basic Mobility Raw Score: 24 PT: OT: PCP JOCY Franco [phone] Lino Calles MD 07/04/2023 * Ana Paula [...] 8:59 AM EDT [facility] H[facility]PITALIST 2 - [facility] DAILY PROGRESS NOTE Page [phone] to reach a provider 28/09 Admit Date: [...] with positive cardiac markers. Patient transferred to [facility] for further work-up and evaluation. On arrival, [...] PRN Diet: Daily Healthy Menu Choices/Cardiac diet ([facility]-Diet) DVT Prophylaxis: DOAC Code status: Attempt Cardiopulmonary Resuscitation - Inpatient Disposition: Discharge Location: AM-PAC Basic Mobility Raw Score: 24 PT: OT: PCP JOCY Franco [phone] Lino Calles MD 07/03/2023 * Van Muse [...] 9:55 AM EDT [facility] H[facility]PITALIST 2 - [facility] DAILY PROGRESS NOTE Page [phone] to reach a provider 28/09 Admit Date: [...] with positive cardiac markers. Patient transferred to [facility] for further work-up and evaluation. On arrival, [...] PRN Diet: Daily Healthy Menu Choices/Cardiac diet ([facility]-Diet) DVT Prophylaxis: DOAC Code status: Attempt Cardiopulmonary Resuscitation - Inpatient Disposition: Discharge Location: AM-PAC Basic Mobility Raw Score: 24 PT: OT: PCP JOCY Franco [phone] Lino Calles MD 07/02/2023 * Jaspreet Griffith [...] 7:39 AM EDT [facility] H[facility]PITALIST 2 - [facility] DAILY PROGRESS NOTE Page [phone] to reach a provider 28/09 Admit Date: [...] with positive cardiac markers. Patient transferred to [facility] for further work-up and evaluation. On arrival, [...] PRN Diet: Daily Healthy Menu Choices/Cardiac diet ([facility]-Diet) NPO diet (Give Meds) DVT Prophylaxis: DOAC Code status: Attempt Cardiopulmonary Resuscitation - Inpatient Disposition: Discharge Location: [facility] Basic Mobility Raw Score: 24 PT: OT: PCP JOCY Franco [phone] Terrence Keating MD 07/01/2023 * Terrence Keating MD - 06/30/2023 8:00 AM EDT [facility] 2 - [facility] DAILY PROGRESS NOTE Page [phone] to reach a provider 28/09 Admit Date: [...] with positive cardiac markers. Patient transferred to [facility] for further work-up and evaluation. On arrival, [...] Score: 24 PT: OT: PCP JOCY Franco [phone] Terrence Keating MD 06/30/2023 * Terrence Keating MD - 06/29/2023 4:29 PM EDT [facility] H[facility]PITALIST 2 - [facility] DAILY PROGRESS NOTE Page [phone] to reach a provider 28/09 Admit Date: [...] with positive cardiac markers. Patient transferred to [facility] for further work-up and evaluation. On arrival, [...] Mobility Raw Score: 24 PT: OT: PCP JOYC Franco [phone] Terrence Keating MD 06/29/2023 * Jo Ann [...] consulted in the interim. Jo Ann Sharpe Coal Washer * Mary Castaneda RCP - 06/29/2023 3:55 [...] 1:53 PM EDT [facility] H[facility]IST 2 - [facility] DAILY PROGRESS NOTE Page [phone] to reach a provider 28/09 Admit Date: [...] with positive cardiac markers. Patient transferred to [facility] for further work-up and evaluation. On arrival, [...] Score: 24 PT: OT: PCP JOCY Franco [phone] * Ailyn Irvin MD - 06/27/2023 9:40 AM EDT [facility] H[facility]IST 2 - [facility] DAILY PROGRESS NOTE Page [phone] to reach a provider 28/09 Admit Date: [...] with positive cardiac markers. Patient transferred to [facility] for further work-up and evaluation. On arrival, [...] Score: 24 PT: OT: PCP JOCY Franco [phone] * Ailyn Irvin MD - 06/26/2023 12:42 PM EDT CV H[facility]PITALIST 2 - [facility] DAILY PROGRESS NOTE Page [phone] to reach a provider 28/09 Admit Date: [...] with positive cardiac markers. Patient transferred to [facility] for further work-up and evaluation. On arrival, [...] Score: 24 PT: OT: PCP JOCY Franco [phone] * Mitali Manuel [facility] - 06/26/2023 5:43 AM EDT Respiratory Therapy [...] 1:39 PM EDT CV H[facility]PITALIST 2 - [facility] DAILY PROGRESS NOTE Page [phone] to reach a provider 28/09 Admit Date: [...] with positive cardiac markers. Patient transferred to [facility] for further work-up and evaluation. On arrival, [...] Score: 24 PT: OT: PCP JOCY Franco [phone] * Edith Chandler RCP - 06/24/2023 10:40 [...] 4:38 PM EDT [facility]IST 2 - [facility] DAILY PROGRESS NOTE Page [phone] to reach a provider 28/09 Admit Date: [...] with positive cardiac markers. Patient transferred to [facility] for further work-up and evaluation. On arrival, [...] Score: 24 PT: OT: PCP JOCY Franco [phone] * Aaron Rosado RCP - 06/24/2023 1:55 [...] 1:03 PM EDT [facility] H[facility]PITALIST 2 - [facility] DAILY PROGRESS NOTE Page [phone] to reach a provider 28/09 Admit Date: [...] with positive cardiac markers. Patient transferred to [facility] for further work-up and evaluation. On arrival, [...] Score: 24 PT: OT: PCP JOCY Franco [phone] * Ciera Valdovinos RD - 06/22/2023 2:38 [...] 1:35 PM EDT CV H[facility]PITALIST 2 - [facility] DAILY PROGRESS NOTE Page [phone] [...] questions please contact the health child care center assistant director that requested your imaging first. Electronically signed by: RONDA DUFFY MD, [facility] ([phone]), at 06/22/2023 7:59 AM XR Chest One View (Exam End: 06/22/2023 11:42 AM) Impression No acute pulmonary findings Thank you for letting us participate in the care of this patient. If you are a health care provider and have any questions regarding this report, please contact the number below. For patients who have questions please contact the health child care center assistant director that requested your imaging first. Electronically signed by: Itz Hayward MD, [facility] ([phone]), at 06/22/2023 11:47 AM Assessment: Loida Roque [...] with positive cardiac markers. Patient transferred to [facility] for further work-up and evaluation. On arrival, [...] above Diet: Daily Healthy Menu Choices/Cardiac diet ([facility]-Diet) DVT Prophlaxis: eliquis Code status: Attempt Cardiopulmonary Resuscitation - Inpatient Disposition: Discharge Planning: AM-PAC Basic Mobility Raw Score: 24 PT: OT: PCP JOCY Franco [phone] * Eufemia Copeland MD - 06/21/2023 11:02 AM EDT CV H[facility]PITALIST 2 - [facility] DAILY PROGRESS NOTE Page [phone] to reach a provider 28/09 Admit Date: [...] with positive cardiac markers. Patient transferred to [facility] for further work-up and evaluation. On arrival, [...] above Diet: Daily Healthy Menu Choices/Cardiac diet ([facility]-Diet) DVT Prophlaxis: eliquis Code status: Attempt Cardiopulmonary Resuscitation - Inpatient Disposition: Discharge Planning: AM-PAC Basic Mobility Raw Score: 24 PT: OT: PCP JOCY Franco [phone] * Eufemia Copeland MD - 06/20/2023 8:06 AM EDT CV HOSPITALIST 2 - [facility] DAILY PROGRESS NOTE Page [phone] to reach a provider 28/09 Admit Date: [...] with positive cardiac markers. Patient transferred to [facility] for further work-up and evaluation. On arrival, [...] above Diet: Daily Healthy Menu Choices/Cardiac diet ([facility]-Diet) DVT Prophlaxis: eliquis Code status: Attempt Cardiopulmonary Resuscitation - Inpatient Disposition: Discharge Planning: AM-PAC Basic Mobility Raw Score: 24 PT: OT: PCP JOCY Franco [phone] * Eufemia Copeland MD - 06/19/2023 10:00 AM EDT CV HOSPITALIST 2 - [facility] DAILY PROGRESS NOTE Page [phone] to reach a provider 28/09 Admit Date: [...] with positive cardiac markers. Patient transferred to [facility] for further work-up and evaluation. On arrival, [...] above Diet: Daily Healthy Menu Choices/Cardiac diet ([facility]-Diet) DVT Prophlaxis: eliquis Code status: Attempt Cardiopulmonary Resuscitation - Inpatient Disposition: Discharge Planning: AM-PAC Basic Mobility Raw Score: 24 PT: OT: PCP JOCY Franco [phone] * Eufemia Copeland MD - 06/18/2023 9:02 AM EDT CV HOSPITALIST 2 - [facility] DAILY PROGRESS NOTE Page [phone] to reach a provider 28/09 Admit Date: [...] with positive cardiac markers. Patient transferred to [facility] for further work-up and evaluation. On arrival, [...] above Diet: Daily Healthy Menu Choices/Cardiac diet ([facility]-Diet) DVT Prophlaxis: eliquis Code status: Attempt Cardiopulmonary Resuscitation - Inpatient Disposition: Discharge Planning: AM-PAC Basic Mobility Raw Score: 24 PT: OT: PCP JOCY Franco [phone] * Eufemia Copeland MD - 06/17/2023 12:02 PM EDT CV HOSPITALIST 2 - [facility] DAILY PROGRESS NOTE Page [phone] to reach a provider 28/09 Admit Date: [...] with positive cardiac markers. Patient transferred to [facility] for further work-up and evaluation. On arrival, [...] above Diet: Daily Healthy Menu Choices/Cardiac diet ([facility]-Diet) DVT Prophlaxis: eliquis Code status: Attempt Cardiopulmonary Resuscitation - Inpatient Disposition: Discharge Planning: AM-PAC Basic Mobility Raw Score: 24 PT: OT: PCP JOCY Franco [phone] * Calista Hernandez RT - 06/17/2023 4:36 [...] 3:25 PM EDT CV H[facility]PITALIST 2 - [facility] DAILY PROGRESS NOTE Page [phone] to reach a provider 28/09 Admit Date: [...] with positive cardiac markers. Patient transferred to [facility] for further work-up and evaluation. On arrival, [...] above Diet: Daily Healthy Menu Choices/Cardiac diet ([facility]-Diet) DVT Prophlaxis: eliquis Code status: Attempt Cardiopulmonary Resuscitation - Inpatient Disposition: Discharge Planning: AM-PAC Basic Mobility Raw Score: 24 PT: OT: PCP JOCY Franco [phone] documented in this encounter H&P Notes * [...] pain. The patient was recently admitted at [facility] from 04/16/23 to 04/19/2023 as a transfer from [facility] due to exertional chest pressure [...] etiology, patient was accepted for transfer to [facility]. 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 fluticasone propionate (FLONASE) 50 mcg/actuation [place], Suspension 1 spray by Each Nare route [...] if hypotensive / cardiogenic shock / inferior [place] / sildenafil within past 24 hours) - [...] for discharge to home with family support, [place] for RN and OP Cardi clinic for f/u. Needs for Transition of Care: Plan for discharge is: Home w/ Services Outpatient Agency/Support Group Needs: None Home Health Services: Registered Nurse Agency Referrals & Follow-up Care: Contact information for follow-up Home Health & Hospice, [place] [facility] [place] [address] Transportation: taxi voucher -Ride confirmed entrance #2 [...] other (see comments) (Has CPAP provided through [facility]) DME Needed at Discharge: none Patient is insured through: Primary Insurance: [employer] [place] Pay[place] [employer] [place] / Plan[place] / Product Type: *No Product type* / Secondary Insurance: N/A Prescription Coverage: Yes This plan was formulated with input from patient, (please identify family/friend involved if applicable) and team. All are in agreement with plan. Nani Mendoza MSN-Ed, RN ACM Cardiac Research Nurse and Neuro/Neurocrit/ENT Airfield Engineer Officer. * Care Management - Dixie Patterson - 07/09/2023 1:38 PM EDT Transportation for discharge was scheduled and confirmed through [employer]. [employer] will have a tanker driver here at entrance #2 @4pm to [...] Visceral Aorta 80 16 Celiac Artery, Proximal [place] 119 26 Celiac Artery, Mid [place] 115 21 Celiac Artery, Distal No Vis Sup Mes Artery Proximal [place] 427 91 Sup Mes Artery Middle [place] 100 17 Sup Mes Artery Distal [place] 64 15 Hepatic Artery No Vis Splenic [...] sign off at this time, please page [phone] with any questions or concerns. Discussed with [...] Visceral Aorta 80 16 Celiac Artery, Proximal [place] 119 26 Celiac Artery, Mid [place] 115 21 Celiac Artery, Distal No Vis Sup Mes Artery Proximal [place] 427 91 Sup Mes Artery Middle [place] 100 17 Sup Mes Artery Distal [place] 64 15 Hepatic Artery No Vis Splenic [...] duplex Discussed with Dr. Kamara. Please page [phone] with any questions or concerns. 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 At [place], patient should be strict NPO. The plan as outlined above was discussed with Dr. Villa. Recommendations were discussed with primary team. Sis Keenan M.D. Fellow in Gastroenterology and Hepatology Pager #[phone] 07/06/2023 Associated attestation - Lashonda Villa MD [...] Lashonda Villa MD Gastroenterology and hepatology Pager: [phone] * Plan of Care - Olive Hernandez [...] Visceral Aorta 80 16 Celiac Artery, Proximal [place] 119 26 Celiac Artery, Mid [place] 115 21 Celiac Artery, Distal No Vis Sup Mes Artery Proximal [place] 427 91 Sup Mes Artery Middle [place] 100 17 Sup Mes Artery Distal [place] 64 15 Hepatic Artery No Vis Splenic [...] duplex Discussed with Dr. Kamara. Please page [phone] with any questions or concerns. Gauri Vega [...] Visceral Aorta 80 16 Celiac Artery, Proximal [place] 119 26 Celiac Artery, Mid [place] 115 21 Celiac Artery, Distal No Vis Sup Mes Artery Proximal [place] 427 91 Sup Mes Artery Middle [place] 100 17 Sup Mes Artery Distal [place] 64 15 Hepatic Artery No Vis Splenic [...] ASA) Discussed with Dr. Kamara. Please page [phone] with any questions or concerns. Gauri Vega [...] Visceral Aorta 80 16 Celiac Artery, Proximal [place] 119 26 Celiac Artery, Mid [place] 115 21 Celiac Artery, Distal No Vis Sup Mes Artery Proximal [place] 427 91 Sup Mes Artery Middle [place] 100 17 Sup Mes Artery Distal [place] 64 15 Hepatic Artery No Vis Splenic [...] 07/02/[address] Kamara. Please page [phone] with any questions or concerns. Gauri Vega [...] Inpatient Consultation History of Present Illness: Loida Rqoue is a 53 y.o. female with non [...] Visceral Aorta 80 16 Celiac Artery, Proximal [place] 119 26 Celiac Artery, Mid [place] 115 21 Celiac Artery, Distal No Vis Sup Mes Artery Proximal [place] 427 91 Sup Mes Artery Middle [place] 100 17 Sup Mes Artery Distal [place] 64 15 Hepatic Artery No Vis Splenic [...] tonight Discussed with Dr. Kamara. Please page [phone] with any questions or concerns. Gauri Vega [...] Visceral Aorta 80 16 Celiac Artery, Proximal [place] 119 26 Celiac Artery, Mid [place] 115 21 Celiac Artery, Distal No Vis Sup Mes Artery Proximal [place] 427 91 Sup Mes Artery Middle [place] 100 17 Sup Mes Artery Distal [place] 64 15 Hepatic Artery No Vis Splenic [...] Visceral Aorta 80 16 Celiac Artery, Proximal [place] 119 26 Celiac Artery, Mid [place] 115 21 Celiac Artery, Distal No Vis Sup Mes Artery Proximal [place] 427 91 Sup Mes Artery Middle [place] 100 17 Sup Mes Artery Distal [place] 64 15 Hepatic Artery No Vis Splenic [...] Dominguez PA - 06/28/2023 8:52 AM EDT [facility] Department of Cardiology Consult Progress Note Reason [...] consultation required. SUHA LangstonC Cardiovascular Medicine Pager [phone] 06/28/2023 Associated attestation - Klarissa Henderson - [...] Tellez MD - 06/24/2023 2:14 PM EDT [facility] Department of Cardiology Consult Progress Note Reason [...] if further consultation required. 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 fluticasone propionate (FLONASE) 50 mcg/actuation [place], Suspension 1 spray by Each Nare route [...] other (see comments) (Has CPAP provided through [employer]) DME Needed at Discharge: No Patient is insured through: Primary Insurance: [employer] [place] [employer] [place] / Plan[place] / [...] Transition of Care 06/19/2023 0559 by Aaron aCban RN Outcome: Ongoing (Interventions [...] other (see comments) (Has CPAP provided through [facility]) DME Needed at Discharge: No Patient is insured through: Primary Insurance: [employer] [place] [employer] [place] / [place] / Product Type: *No Product type* / Secondary Insurance: N/A Plan for discharge is: Home w/o Services Outpatient Agency/Support Group Needs: None Agency Referrals: Not Applicable at this time. Transportation: taxi voucher Barriers to discharge: Discharge planning Plan going forward: [place] to [place] with family without services once medically ready. Care Management will continue to follow and assist with discharge planning and coordination of careas indicated. Anticipated Date of Discharge: 06/19/2023 BEA Killian, RN Inpatient [facility]- Cardiology Office of Care Management Pager #: [phone] * Plan of Care - Olive Hernandez [...] COVID test: Lab Results Component Value Date [id number] Not Detected 06/13/2021 Past medical History: Past [...] In the past 12 months has the [employer], gas, oil, or water [employer] threatened to shut off services in your [...] other (see comments) (Has CPAP provided through [employer]) Home Address confirmed as: [address] [facility] [address] Social & Family Supports: All names listed [...] Specific Information: Has a CPAP provided by [facility]/Prescription Coverage: Primary Insurance: [employer] [place] Payor[place] [employer] [place] / Plan[place] [employer] [place] / Product Type: *No Product type* / Secondary Insurance: N/A ; Prescription Coverage: Yes Preferred Pharmacy: [facility] [address] [address] [place] Status: Patient is a : No Primary Care Provider confirmed: JOCY Franco [phone] Patient/Caregiver Goals of Treatment: To figure out what is wrong Potential Needs for Transition of Care: other (see comments) ([facility] fincal help) Agency Referrals: Not Applicable Transportation: [...] Office of Care Management Float / multimedia educational specialist house calls nurse practitioner [email or web address] Pager #[phone] * Consult Note - Jackie Batres MD - 06/15/2023 11:04 AM EDT [facility] Department of Cardiology Initial Consult Note Patient: [...] her case. She has not had recent supervisor long goods monitoring for arrhythmia, though unlikely, [...] PM EST Office Visit Cardiology at [address] [phone] Jaspreet Kinsey MD [facility] [place] [address] Scheduled Orders Name Type Priority Associated Diagnoses [...] Routine 07/07/2023 2:25 PM EDT Colonoscopy, Biopsy ([id number]) 07/07/2023 2:10 PM EDT post prandial pain Upper Gi Endoscopy, Biopsy ([id number]) 07/07/2023 2:10 PM EDT post prandial pain [...] 07/07/2023 3:51 AM EDT GIARDIA/CRYPTOSPORIDI UM ANTIGENS ([facility]/CGP/APD/NLH) Routine 07/07/2023 12:38 AM EDT HEPATIC FUNCTION [...] EDT) Glucose 111 65 - 199 mg/dL [facility] Comment:Diabetes: >=200 mg/d L plus symptoms Blood Urea Nitrogen 29(H) 8 - 18 mg/dL [facility] [...] mmol/L [facility] Carbon Dioxide 29 22 - 31 mmol/L [facility] Anion Gap 12 5 - 15 mmol/L [facility] Calcium 10.0 8.5 - 10.5 mg/dL [facility] Est Glomerular Filtration Rate 44(L) >=60 mL/min/1. 73 m?? [facility] [...] MD CHEMISTRY ORDERABLES [facility] [place] [address] * Differential, Automated (07/09/2023 3:03 AM EDT) Neutrophil % 51.4 % [facility] Neutrophil Absolute 3.43 1.70 - 6.10 x10(3)/[facility] Lymph % 31.4 % [facility] Lymphocytes Abs 2.1 0.9 - 3.2 x10(3)/[facility]ORY Monocyte % 10.1 % [facility] Monocyte Abs 0.7 0.3 - 0.9 x10(3)/[facility] Eos % 6.0 % [facility] Eosinophils Abs 0.4 0.0 - 0.4 x10(3)/[facility] Basophil % 0.8 % [facility] Baso Absolute 0.0 0.0 - 0.1 x10(3)/[facility] Immature Gran % 0.30 % [facility] [...] x10(3)/[facility] Blood 07/09/2023 3:03 AM EDT 07/09/2023 3:14 AM EDT Narrative Resulting Agency Comment Spec In Lab Terrence Keating MD HEMATOLOGY ORDERABLE S [facility] [place] [address] * (ABNORMAL) Hemogram (07/09/2023 3:03 AM EDT) White Blood Cell 6.7 4.0 - 9.5 x10(3)/[facility] LABORATORY Red Blood Cell 3.87(L) 4.00 - 5.21 x10(6)/mc L [facility] Hemoglobin 12.4 11.7 - 15.5 g/dL [facility] Hematocrit 36.8 35.7 - 45.8 % [facility] Mean Cell Volume 95.1(H) 82.6 - 94.4 fL [facility] Mean Cell Hemoglobin 32.0 27.1 - 32.0 pg [facility] Mean Cell Hemoglobin Concentration 33.7 31.7 - 35.0 g/dL [facility] Platelet 209 145 - 357 x10(3)/ L [facility] RDW Standard Deviation 47.9(H) 37.0 - 46.0 [facility]ATORY RDW coefficient of variation 13.7 11.5 - 14.1 % [facility] Mean Platelet Volume 10.5 7.6 - 12.9 fL [facility] NRBC% auto 0.0 % [facility] NRBC Absolute 0.000 0.000 - 0.000 x10(3)/ L [facility] Blood 07/09/2023 3:03 AM EDT 07/09/2023 3:14 AM EDT Narrative Resulting Agency Comment Spec In Lab Terrence Keating MD HEMATOLOGY ORDERABLE S Performing Organization Address City/[facility] Hospital/ZIP Co de Phone Number [facility] [place] [address] * Heparin (unfractionated) Level (07/09/2023 3:03 AM EDT) UF Heparin 0.52 IU/mL [facility] Comment: Heparin [...] MD HEMATOLOGY ORDERABLE S Performing Organization Address [facility] Hospital/ZIP Co de Phone Number [facility] [place] [address] * (ABNORMAL) Basic Metabolic Panel (non-fasting) (07/09/2023 3:03 AM EDT) Glucose 100 65 - 199 mg/dL [facility] Comment:Diabetes: >=200 mg/d L plus symptoms Blood Urea Nitrogen 12 8 - 18 mg/dL [facility] [...] mmol/L [facility] Carbon Dioxide 22 22 - 31 mmol/L [facility] Anion Gap 12 5 - 15 mmol/L [facility] Calcium 9.3 8.5 - 10.5 mg/dL [facility] Est Glomerular Filtration Rate 52(L) >=60 mL/min/1. 73 m?? [facility] [...] MD CHEMISTRY ORDERABL ES Performing Organization Address City/[facility] Hospital/ZIP Co de Phone Number [facility] [place] [address] * Phosphorus (07/09/2023 3:03 AM EDT) Phosphorus 4.5 2.5 - 4.5 mg/dL [facility] Blood 07/09/2023 3:03 AM EDT 07/09/2023 3:14 AM EDT Narrative Resulting Agency Comment Spec In Lab Eufemia Copeland MD CHEMISTRY ORDERABL ES Performing Organization Address City/[facility] Hospital/ZIP Co de Phone Number [facility] [place] [address] * Magnesium (07/09/2023 3:03 AM EDT) Pathologist [facility] Magnesium 0.91 0.69 - 1.07 mmol/L [facility] Blood 07/09/2023 3:03 AM EDT 07/09/2023 3:14 AM EDT Narrative Resulting Agency Comment Spec In Lab Eufemia Copeland MD CHEMISTRY ORDERABL ES Performing Organization Address [facility] Co de Phone Number [facility] [place] [address] * Heparin (unfractionated) Level (07/08/2023 12:02 PM EDT) Pathologist [facility] UF Heparin 0.45 IU/mL [facility] Comment: Heparin (anti-Xa) [...] MD HEMATOLOGY ORDERABLE S Performing Organization Address [facility]/ZIP Co de Phone Number [facility] [place] [address] * EKG 12 Lead (07/08/2023 9:58 AM EDT) Pathologist [facility] Ventricular rate 66 BPM MUSE SYSTEM Atrial Rate 66 BPM MUSE SYSTEM P-R Interval 178 ms MUSE SYSTEM QRS Duration 92 ms MUSE SYSTEM Q-T Interval 486 ms MUSE SYSTEM QTC Calculated (Bezet) 509 ms MUSE SYSTEM Calculated P [place] 29 degrees MUSE SYSTEM Calculated R [place] 33 degrees MUSE SYSTEM Calculated T [place] 29 degrees MUSE SYSTEM INTERPRETATION Normal sinus rhythm Nonspecific ST and T wave abnormality Prolonged QT Abnormal ECG When compared with ECG of 04-JUL-2023 11:41, Criteria for Septal infarct are no longer Present I personally reviewed the tracing and edited the fellows interpretation Confirmed by fellow MD Keyshawn, Katalina ([id number]) on 07/08/2023 3:18:07 PM Confirmed by MD Beatriz, Klarissa ([id number]) on 07/09/2023 6:15:21 AM MUSE SYSTEM 07/08/2023 9:58 AM EDT 07/09/2023 6:15 AM EDT Lisa Beck MD ECG ORDERABLES MUSE SYSTEM * Differential, Automated (07/08/2023 5:52 AM EDT) Neutrophil % 60.6 % [facility] Neutrophil Absolute 4.42 1.70 - 6.10 x10(3)/[facility] Lymph % 24.8 % [facility] Lymphocytes Abs 1.8 0.9 - 3.2 x10(3)/[facility] Monocyte % 9.2 % [facility] Monocyte Abs 0.7 0.3 - 0.9 x10(3)/[facility] Eos % 4.5 % [facility] Eosinophils Abs 0.3 0.0 - 0.4 x10(3)/[facility] Basophil % 0.5 % [facility] Baso Absolute 0.0 0.0 - 0.1 x10(3)/[facility] Immature Gran % 0.40 % [facility] Comment: Immature granulocytes(IG's)percentage and absolute count will include metamyelocytes, myelocytes, and promyelocytes. Blood smears from CBCs yielding IG's will be scanned manually for concordance. If this scan disagrees with the automated IG or if promyelocytes are noted, a manual differential will be performed. Immature Gran Absolute 0.03 0.00 - 0.04 x10(3)/mcL [facility] Blood 07/08/2023 5:52 AM EDT 07/08/2023 5:58 AM EDT Narrative Resulting Agency Comment Spec In Lab Terrence Keating MD HEMATOLOGY ORDERABLE S [facility] [place] [address] * (ABNORMAL) Hemogram (07/08/2023 5:52 AM EDT) White Blood Cell 7.3 4.0 - 9.5 x10(3)/mc L [facility] Red Blood Cell 3.94(L) 4.00 - 5.21 x10(6)/mc L [facility] Hemoglobin 12.3 11.7 - 15.5 g/dL [facility] Hematocrit 36.3 35.7 - 45.8 % [facility] Mean Cell Volume 92.1 82.6 - 94.4 fL [facility] Mean Cell Hemoglobin 31.2 27.1 - 32.0 pg [facility] Mean Cell Hemoglobin Concentration 33.9 31.7 - 35.0 g/dL [facility] Platelet 207 145 - 357 x10(3)/mc L [facility] RDW Standard Deviation 44.6 37.0 - 46.0 fL [facility] RDW coefficient of variation 13.3 11.5 - 14.1 % [facility] Mean Platelet Volume 10.5 7.6 - 12.9 fL [facility] NRBC% auto 0.0 % [facility] NRBC Absolute 0.000 0.000 - 0.000 x10(3)/mc L [facility] Blood 07/08/2023 5:52 AM EDT 07/08/2023 5:58 AM EDT Narrative Resulting Agency Comment Spec In Lab Terrence Keating MD HEMATOLOGY ORDERABLE S Performing Organization Address City/[facility] Hospital/ZIP Co de Phone Number [facility] [place] [address] * Heparin (unfractionated) Level (07/08/2023 5:52 AM EDT) UF Heparin 0.37 IU/mL [facility] Comment: Heparin (anti-Xa) [...] MD HEMATOLOGY ORDERABLE S Performing Organization Address City/[facility] Hospital/ZIP Co de Phone Number [facility] [place] [address] * (ABNORMAL) Basic Metabolic Panel (non-fasting) (07/08/2023 5:52 AM EDT) Glucose 102 65 - 199 mg/dL [facility] Comment:Diabetes: >=200 mg/d L plus symptoms Blood Urea Nitrogen 14 8 - 18 mg/dL [facility] [...] mmol/L [facility] Carbon Dioxide 25 22 - 31 mmol/L [facility] Anion Gap 13 5 - 15 mmol/L [facility] Calcium 9.3 8.5 - 10.5 mg/dL [facility] Est Glomerular Filtration Rate 49(L) >=60 mL/min/1. 73 m?? [facility] [...] CHEMISTRY ORDERABL ES [facility] [place] [address] * Phosphorus (07/08/2023 5:52 AM EDT) Phosphorus 4.3 2.5 - 4.5 mg/dL [facility] Blood 07/08/2023 5:52 AM EDT 07/08/2023 5:58 AM EDT Narrative Resulting Agency Comment Spec In Lab Eufemia Copeland MD CHEMISTRY ORDERABL ES Performing Organization Address City/[facility] Hospital/ZIP Co de Phone Number [facility] [place] [address] * Magnesium (07/08/2023 5:52 AM EDT) Magnesium 0.89 0.69 - 1.07 mmol/L [facility] Blood 07/08/2023 5:52 AM EDT 07/08/2023 5:58 AM EDT Narrative Resulting Agency Comment Spec In Lab Eufemia Copeland MD CHEMISTRY ORDERABL ES Performing Organization Address [facility] Co de Phone Number [facility] [place] [address] * Heparin (unfractionated) Level (07/08/2023 12:00 AM EDT) UF Heparin 0.22 IU/mL [facility] Comment: Heparin (anti-Xa) [...] MD HEMATOLOGY ORDERABLE S Performing Organization Address [facility] Co de Phone Number [facility] [place] [address] * Specimen to Pathology (07/07/2023 2:55 PM EDT) AP Specimen 07/07/2023 2:55 PM EDT 07/07/2023 2:55 PM EDT Narrative [facility] - 07/07/2023 2:55 PM EDT Specimen requisition ordered. ??Separate Pathology report to follow Terrence Keating MD PATHOLOGY/CYTOLOGY O RUMA Performing Organization Address [facility] [place] [address] * Specimen to Pathology (07/07/2023 2:38 PM EDT) AP Specimen 07/07/2023 2:38 PM EDT 07/07/2023 2:38 PM EDT Narrative [facility] - 07/07/2023 2:38 PM EDT Specimen requisition ordered. ??Separate Pathology report to follow Terrence Keating MD PATHOLOGY/CYTOLOGY O RUMA Performing Organization Address [facility] [place] [address] * Specimen to Pathology (07/07/2023 2:38 PM EDT) AP Specimen 07/07/2023 2:38 PM EDT 07/07/2023 2:38 PM EDT [facility] - 07/07/2023 2:38 PM EDT Specimen requisition ordered. ??Separate Pathology report to follow Terrence Keating MD PATHOLOGY/CYTOLOGY Deyanira HENDRIX Performing Organization Address [facility] [place] [address] * Surgical Pathology Report (07/07/2023 2:25 PM EDT) Final Diagnosis [id number] ? Location: [id number]; [facility]; A The signing pathologist has (i) examined [...] Sapna Verified: ??07/19/2023 13:25 ??Pathologist Performed at: ??-[facility] Dept. of Pathology, [place] [address] Daylight Driller: Vangie Lu MD, FCAP, ??CLIA Certificate: [id number] SPECIMEN(S) SUBMITTED A - duodenal biopsies rule [...] labeled C1-C2. ??sdy 07/19/2023 1:25 PM EDT [facility] GI Biopsy 07/07/2023 2:25 PM EDT 07/07/2023 2:25 PM EDT GI Biopsy 07/07/2023 2:25 PM EDT 07/07/2023 2:25 PM EDT GI Biopsy 07/07/2023 2:25 PM EDT 07/07/2023 2:25 PM EDT Lashonda Villa MD PATHOLOGY/CYTOLOGY O RDERAFADUMO [facility] [place] [address] * COLONOSCOPY (07/07/2023 1:39 PM EDT) COLONOSCOPY [facility] Endoscopy Procedure Date: 07/07/2023 1:39 PM ? Patient Name: Loida Roque ? N: [id number] ? Date of : 1970 ? Age: 53 ? Order #: [id number] ? Instrument Name: [id number]- [id number] ? Procedure: ? Colonoscopy Indications: ? Abdominal [...] ? was evaluated using the BBPS ? (Rochelle Bowel Preparation Scale) ? with scores of: [...] Procedure Code(s): ? --- Professional --- ? 31645, Colonoscopy, flexible; with ? biopsy, single or multiple CPT copyright 2021 [employer]. All rights reserved. The codes documented in this report are preliminary and upon personnel and payroll technician review may be revised to meet current [...] - GENER AL ORDERABLES Performing Organization Address City/Va Hospital/ZIP Co de Phone Number [facility] [place] [address] * Campylobacter Antigen (07/07/2023 12:10 PM EDT) Pathologist [facility] Campylobacter Ag Immunoassay Negative for Campylobacter Antigen [facility] Stool 07/07/2023 12:1 0 PM EDT 07/07/2023 12:53 PM EDT Narrative Resulting Agency Comment Spec In Lab Ailyn Irvin MD MICROBIOLOGY - GENER AL ORDERABLES Performing Organization Address City/[facility] Hospital/ZIP Co de Phone Number [facility] [place] [address] * Stool culture (07/07/2023 12:10 PM EDT) [facility] Stool Culture No enteric pathogens isolated [facility] Stool 07/07/2023 12:1 0 PM EDT 07/07/2023 12:53 PM EDT Narrative Resulting Agency Comment Spec In Lab Ailyn Irvin MD MICROBIOLOGY - GENER AL ORDERABLES Performing Organization Address City/[facility] Hospital/[facility] Co de Phone Number [facility] [address] * (ABNORMAL) Differential, Automated (07/07/2023 3:51 AM EDT) Pathologist [facility] Neutrophil % 58.9 % [facility] Neutrophil Absolute 4.67 1.70 - 6.10 x10(3)/mc L [facility] Lymph % 24.8 % [facility] Lymphocytes Abs 2.0 0.9 - 3.2 x10(3)/mc L [facility] Monocyte % 9.4 % [facility] Monocyte Abs 0.7 0.3 - 0.9 x10(3)/mc L [facility] Eos % 6.1 % [facility] Eosinophils Abs 0.5(H) 0.0 - 0.4 x10(3)/mc L [facility] Basophil % 0.5 % [facility] Baso Absolute 0.0 0.0 - 0.1 x10(3)/mc L [facility] [...] Absolute 0.02 0.00 - 0.04 x10(3)/ L [facility] Blood 07/07/2023 3:51 AM EDT 07/07/2023 4:08 AM EDT Narrative Resulting Agency Comment Spec In Lab Terrence Keating MD HEMATOLOGY ORDERABLE S [facility] [place] [address] * Hemogram (07/07/2023 3:51 AM EDT) White Blood Cell 7.9 4.0 - 9.5 x10(3)/[facility] Red Blood Cell 4.42 4.00 - 5.21 x10(6)/[facility] Hemoglobin 13.8 11.7 - 15.5 g/dL [facility] Hematocrit 41.0 35.7 - 45.8 % [facility] Mean Cell Volume 92.8 82.6 - 94.4 fL [facility] Mean Cell Hemoglobin 31.2 27.1 - 32.0 pg [facility] Mean Cell Hemoglobin Concentration 33.7 31.7 - 35.0 g/dL [facility] Platelet 255 145 - 357 x10(3)/[facility] RDW Standard Deviation 44.8 37.0 - 46.0 fL [facility] RDW coefficient of variation 13.2 11.5 - 14.1 % [facility] Mean Platelet Volume 10.6 7.6 - 12.9 fL [facility] NRBC% auto 0.0 % [facility] NRBC Absolute 0.000 0.000 - 0.000 x10(3)/mcL [facility] Blood 07/07/2023 3:51 AM EDT 07/07/2023 4:08 AM EDT Narrative Resulting Agency Comment Spec In Lab Terrence Keating MD HEMATOLOGY ORDERABLE S Performing Organization Address City/[facility]/ZIP Co de Phone Number [facility] [place] [address] * Heparin (unfractionated) Level (07/07/2023 3:51 AM EDT) UF Heparin 0.33 IU/mL [facility] Comment: Heparin (anti-Xa) [...] MD HEMATOLOGY ORDERABLE S Performing Organization Address City/[facility]/ZIP Co de Phone Number [facility] [address] * (ABNORMAL) Basic Metabolic Panel (non-fasting) (07/07/2023 3:51 AM EDT) Glucose 101 65 - 199 mg/dL [facility] Comment:Diabetes: >=200 mg/d L plus symptoms Blood Urea Nitrogen 18 8 - 18 mg/dL [facility] [...] mmol/L [facility] Carbon Dioxide 23 22 - 31 mmol/L [facility] Anion Gap 16(H) 5 - 15 mmol/L [facility] Calcium 9.4 8.5 - 10.5 mg/dL [facility] Est Glomerular Filtration Rate 49(L) >=60 mL/min/1. 73 m?? [facility] [...] CHEMISTRY ORDERABL ES [facility] [place] [address] * Phosphorus (07/07/2023 3:51 AM EDT) Phosphorus 4.0 2.5 - 4.5 mg/dL [facility] Blood 07/07/2023 3:51 AM EDT 07/07/2023 4:08 AM EDT Narrative Resulting Agency Comment Spec In Lab Eufemia Copeland MD CHEMISTRY ORDERABL ES Performing Organization Address [facility] Co de Phone Number [facility] [place] [address] * Magnesium (07/07/2023 3:51 AM EDT) Magnesium 0.87 0.69 - 1.07 mmol/L [facility] Blood 07/07/2023 3:51 AM EDT 07/07/2023 4:08 AM EDT Narrative Resulting Agency Comment Spec In Lab Eufemia Copeland MD CHEMISTRY ORDERABL ES Performing Organization Address [facility] Co de Phone Number [facility] [place] [address] * Hepatic Function Panel (07/07/2023 3:51 AM EDT) Pathologist [facility] Protein, Total 7.5 6.1 - 8.0 g/dL [facility] Albumin 4.4 3.2 - 5.2 g/dL [facility] Aspartate Aminotransferase 15 0 - 30 unit/L [facility] Alanine Aminotransferase 20 0 - 30 unit/L [facility] Alkaline Phosphatase 54 35 - 105 unit/L [facility] Bilirubin, Total 0.4 0.2 - 1.3 mg/dL [facility] Bilirubin, Direct 0.1 0.0 - 0.3 mg/dL [facility] Blood 07/07/2023 3:51 AM EDT 07/07/2023 4:08 AM EDT Narrative Resulting Agency Comment Spec In Lab Ailyn Irvin MD CHEMISTRY ORDERABLES Performing Organization Address City/[facility] Hospital/ZIP Co de Phone Number [facility] [place] [address] * Giardia/Cryptosporidium Antigens (MC/CGP/APD/NLH) (07/07/2023 12:38 AM EDT) Giardia Antigen Negative Negative [facility] Comment:Examination for othe r intestinal parasites requires foreign travel history. Cryptosporidium Antigen Negative Negative [facility] Stool 07/07/2023 12:3 8 AM EDT 07/07/2023 7:56 AM EDT Narrative Resulting Agency Comment Spec In Lab Ailyn Irvin MD MICROBIOLOGY - GENER AL ORDERABLES Performing Organization Address [facility]/ZIP Co de Phone Number [facility] [place] [address] * Hepatic Function Panel (07/06/2023 3:41 PM EDT) Protein, Total 7.6 6.1 - 8.0 g/dL [facility] Albumin 4.3 3.2 - 5.2 g/dL [facility] Aspartate Aminotransferase 20 0 - 30 unit/L [facility] Alanine Aminotransferase 22 0 - 30 unit/L [facility] Alkaline Phosphatase 58 35 - 105 unit/L [facility] Bilirubin, Total 0.4 0.2 - 1.3 mg/dL [facility] Bilirubin, Direct 0.1 0.0 - 0.3 mg/dL [facility] Blood 07/06/2023 3:41 PM EDT 07/06/2023 4:00 PM EDT Narrative Resulting Agency Comment Spec In Lab Terrence Keating MD CHEMISTRY ORDERABLES Performing Organization Address City/[facility] Hospital/ZIP Co de Phone Number [facility] [place] [address] * Hepatic Function Panel (07/06/2023 3:54 AM EDT) [facility] Protein, Total 7.6 6.1 - 8.0 g/dL [facility] Albumin 4.3 3.2 - 5.2 g/dL [facility] Aspartate Aminotransferase Not Perf 0 - 30 [facility] Comment: Unable to quantitate due to sample hemolysis. ??Sample redraw suggested. Called by: abimbola, Read back by: Ana Paula Borja, Date/Time:07/06/23 14:08. Alanine Aminotransferase 25 0 - 30 unit/L [facility] Alkaline Phosphatase 58 35 - 105 unit/L [facility] Bilirubin, Total 0.4 0.2 - 1.3 mg/dL [facility] Bilirubin, Direct Not Perf 0.0 - 0.3 [facility] Blood Venous Draw / Unknown 07/06/2023 3:54 AM EDT 07/06/2023 4:18 AM EDT Narrative Resulting Agency Comment Spec In Lab Terrence Keating MD CHEMISTRY ORDERABLES [facility] [address] * (ABNORMAL) Differential, Automated (07/06/2023 3:54 AM EDT) [facility] Neutrophil % 56.6 % [facility] Neutrophil Absolute 4.34 1.70 - 6.10 x10(3)/mc L [facility] Lymph % 26.1 % [facility] Lymphocytes Abs 2.0 0.9 - 3.2 x10(3)/mc L [facility] Monocyte % 9.6 % [facility] Monocyte Abs 0.7 0.3 - 0.9 x10(3)/mc L [facility] Eos % 6.6 % [facility] Eosinophils Abs 0.5(H) 0.0 - 0.4 x10(3)/mc L [facility] Basophil % 0.7 % [facility] Baso Absolute 0.0 0.0 - 0.1 x10(3)/[facility] [...] Immature Gran Absolute 0.03 0.00 - 0.04 x10(3)/[facility] Blood 07/06/2023 3:54 AM EDT 07/06/2023 4:12 AM EDT Narrative Resulting Agency Comment Spec In Lab Terrence Keating MD HEMATOLOGY ORDERABLE S Performing Organization Address City/State/[facility] Co de Phone Number [facility] [address] * (ABNORMAL) Hemogram (07/06/2023 3:54 AM EDT) White Blood Cell 7.7 4.0 - 9.5 x10(3)/[facility] Red Blood Cell 4.62 4.00 - 5.21 x10(6)/[facility] Hemoglobin 14.7 11.7 - 15.5 g/dL [facility] Hematocrit 43.8 35.7 - 45.8 % [facility] Mean Cell Volume 94.8(H) 82.6 - 94.4 fL [facility] Mean Cell Hemoglobin 31.8 27.1 - 32.0 pg [facility] Mean Cell Hemoglobin Concentration 33.6 31.7 - 35.0 g/dL [facility] Platelet 243 145 - 357 x10(3)/[facility] LABORATORY RDW Standard Deviation 47.2(H) 37.0 - 46.0 fL [facility] RDW coefficient of variation 13.5 11.5 - 14.1 % [facility] Mean Platelet Volume 10.4 7.6 - 12.9 fL [facility] NRBC% auto 0.0 % [facility] NRBC Absolute 0.000 0.000 - 0.000 x10(3)/mc L [facility] Blood 07/06/2023 3:54 AM EDT 07/06/2023 4:12 AM EDT Narrative Resulting Agency Comment Spec In Lab Terrence Keating MD HEMATOLOGY ORDERABLE S [facility] [place] [address] * (ABNORMAL) Basic Metabolic Panel (non-fasting) (07/06/2023 3:54 AM EDT) Glucose 107 65 - 199 mg/dL [facility] Comment:Diabetes: >=200 mg/d L plus symptoms Blood Urea Nitrogen 16 8 - 18 mg/dL [facility] [...] mmol/L [facility] Carbon Dioxide 23 22 - 31 mmol/L [facility] Anion Gap 14 5 - 15 mmol/L [facility] Calcium 10.0 8.5 - 10.5 mg/dL [facility] Est Glomerular Filtration Rate 51(L) >=60 mL/min/1. 73 m?? [facility] [...] MD CHEMISTRY ORDERABL ES Performing Organization Address [facility] Co de Phone Number [facility] [place] [address] * Phosphorus (07/06/2023 3:54 AM EDT) Phosphorus 4.5 2.5 - 4.5 mg/dL [facility] Blood 07/06/2023 3:54 AM EDT 07/06/2023 4:18 AM EDT Narrative Resulting Agency Comment Spec In Lab Eufemia Copeland MD CHEMISTRY ORDERABL ES Performing Organization Address [facility] Co de Phone Number [facility] [place] [address] * Magnesium (07/06/2023 3:54 AM EDT) Magnesium 0.97 0.69 - 1.07 mmol/L [facility] Blood 07/06/2023 3:54 AM EDT 07/06/2023 4:18 AM EDT Narrative Resulting Agency Comment Spec In Lab Eufemia Copeland MD CHEMISTRY ORDERABL ES Performing Organization Address [facility] Co de Phone Number [facility] [place] [address] * Heparin (unfractionated) Level (07/06/2023 3:54 AM EDT) UF Heparin 0.31 IU/mL [facility] Comment: Heparin (anti-Xa) [...] HEMATOLOGY ORDERABLE S [facility] [place] [address] * Amylase (07/05/2023 5:44 PM EDT) Amylase 35 28 - 100 unit/L [facility] Blood 07/05/2023 5:44 PM EDT 07/05/2023 6:00 PM EDT Narrative Resulting Agency Comment Spec In Lab Terrence Keating MD CHEMISTRY ORDERABLES [facility] [place] [address] * Lipase (07/05/2023 5:44 PM EDT) Lipase 17 0 - 60 unit/L [facility] Blood 07/05/2023 5:44 PM EDT 07/05/2023 6:00 PM EDT Narrative Resulting Agency Comment Spec In Lab Terrence Keating MD CHEMISTRY ORDERABLES [facility] [place] [address] * (ABNORMAL) Basic Metabolic Panel (non-fasting) (07/05/2023 5:44 PM EDT) Glucose 130 65 - 199 mg/dL [facility] Comment:Diabetes: >=200 mg/d L plus symptoms Blood Urea Nitrogen 17 8 - 18 mg/dL [facility] [...] mmol/L [facility] Carbon Dioxide 21(L) 22 - 31 mmol/L [facility] Anion Gap 15 5 - 15 mmol/L [facility] Calcium 9.6 8.5 - 10.5 mg/dL [facility] Est Glomerular Filtration Rate 49(L) >=60 mL/min/1. 73 m?? [facility] [...] MD CHEMISTRY ORDERABLES [facility] [place] [id number] * Duplex Study Visceral Arteries, Comp (07/05/2023 9:46 AM EDT) VB Text Report Department: Vascular Surgery Lab Patient: [id number] (LOIDA ROQUE) CPT: [id number] Referring Physician: TERRENCE KEATING ?? Phone: Indications: [...] ?Bi-Triphasic ?101 ?11 ?? Hepatic Artery ? [place]-Biphasic ? 123 ?23 ?? Splenic Artery ? [place]-Biphasic ? 122 ?24 ?? Inf Mes Artery [...] 5:05 AM EDT) Neutrophil % 63.0 % [facility] Neutrophil Absolute 5.59 1.70 - 6.10 x10(3)/[facility] Lymph % 22.4 % [facility] Lymphocytes Abs 2.0 0.9 - 3.2 x10(3)/[facility] Monocyte % 9.7 % [facility] Monocyte Abs 0.9 0.3 - 0.9 x10(3)/[facility] Eos % 4.1 % [facility] Eosinophils Abs 0.4 0.0 - 0.4 x10(3)/[facility] Basophil % 0.6 % [facility] Baso Absolute 0.0 0.0 - 0.1 x10(3)/[facility] Immature Gran % 0.20 % [facility] [...] x10(3)/[facility] Blood 07/05/2023 5:05 AM EDT 07/05/2023 5:17 AM EDT Narrative Resulting Agency Comment Spec In Lab Terrence Keating MD HEMATOLOGY ORDERABLE S [facility] [place] [place] [address] * (ABNORMAL) Hemogram (07/05/2023 5:05 AM EDT) White Blood Cell 8.9 4.0 - 9.5 x10(3)/ L [facility] Red Blood Cell 4.42 4.00 - 5.21 x10(6)/ L [facility] Hemoglobin 13.7 11.7 - 15.5 g/dL [facility] Hematocrit 41.4 35.7 - 45.8 % [facility] Mean Cell Volume 93.7 82.6 - 94.4 fL [facility] Mean Cell Hemoglobin 31.0 27.1 - 32.0 pg [facility] Mean Cell Hemoglobin Concentration 33.1 31.7 - 35.0 g/dL [facility] Platelet 245 145 - 357 x10(3)/mc L [facility] RDW Standard Deviation 47.1(H) 37.0 - 46.0 fL [facility] RDW coefficient of variation 13.7 11.5 - 14.1 % [facility] Mean Platelet Volume 10.8 7.6 - 12.9 [facility] NRBC% auto 0.0 % [facility] NRBC Absolute 0.000 0.000 - 0.000 x10(3)/mc L [facility] Blood 07/05/2023 5:05 AM EDT 07/05/2023 5:17 AM EDT Narrative Resulting Agency Comment Spec In Lab Terrence Keating MD HEMATOLOGY ORDERABLE S Performing Organization Address [facility]/[place] [address] * Heparin (unfractionated) Level (07/05/2023 5:05 AM EDT) UF Heparin 0.35 IU/mL [facility] Comment: Heparin (anti-Xa) [...] MD HEMATOLOGY ORDERABLE S Performing Organization Address City/[facility] Hospital/ZIP Co de Phone Number [facility] [address] * (ABNORMAL) Basic Metabolic Panel (non-fasting) (07/05/2023 5:05 AM EDT) Glucose 114 65 - 199 mg/dL [facility] Comment:Diabetes: >=200 mg/d L plus symptoms Blood Urea Nitrogen 19(H) 8 - 18 mg/dL [facility] [...] mmol/L [facility] Carbon Dioxide 25 22 - 31 mmol/L [facility] Anion Gap 12 5 - 15 mmol/L [facility] Calcium 10.0 8.5 - 10.5 mg/dL [facility] Est Glomerular Filtration Rate 41(L) >=60 mL/min/1. 73 m?? [facility] [...] MD CHEMISTRY ORDERABL ES Performing Organization Address [facility] Co de Phone Number [facility] [place] [address] * (ABNORMAL) Phosphorus (07/05/2023 5:05 AM EDT) Pathologist [facility] Phosphorus 5.0(H) 2.5 - 4.5 mg/dL [facility] Blood 07/05/2023 5:05 AM EDT 07/05/2023 5:17 AM EDT Narrative Resulting Agency Comment Spec In Lab Eufemia Copeland MD CHEMISTRY ORDERABL ES Performing Organization Address [facility] Co de Phone Number [facility] [address] * Magnesium (07/05/2023 5:05 AM EDT) Pathologist [facility] Magnesium 1.01 0.69 - 1.07 mmol/L [facility] Blood 07/05/2023 5:05 AM EDT 07/05/2023 5:17 AM EDT Narrative Resulting Agency Comment Spec In Lab Eufemia Copeland MD CHEMISTRY ORDERABL ES Performing Organization Address [facility] Co de Phone Number [facility] [address] * EKG 12 Lead (07/04/2023 11:41 AM EDT) Ventricular rate 76 BPM MUSE SYSTEM Atrial Rate 76 BPM MUSE SYSTEM P-R Interval 174 ms MUSE SYSTEM QRS Duration 88 ms MUSE SYSTEM Q-T Interval 450 ms MUSE SYSTEM QTC Calculated (Bezet) 506 ms MUSE SYSTEM Calculated P [place] 36 degrees MUSE SYSTEM Calculated R [place] 35 degrees MUSE SYSTEM Calculated T [place] 37 degrees MUSE SYSTEM INTERPRETATION Normal sinus [...] 3:47 AM EDT) Neutrophil % 63.5 % [facility] Neutrophil Absolute 5.19 1.70 - 6.10 x10(3)/[facility] Lymph % 24.4 % [facility] Lymphocytes Abs 2.0 0.9 - 3.2 x10(3)/[facility] Monocyte % 8.1 % [facility] Monocyte Abs 0.7 0.3 - 0.9 x10(3)/[facility] Eos % 3.4 % [facility] Eosinophils Abs 0.3 0.0 - 0.4 x10(3)/[facility] Basophil % 0.4 % [facility] Baso Absolute 0.0 0.0 - 0.1 x10(3)/[facility] Immature Gran % 0.20 % [facility] [...] x10(3)/[facility] Blood 07/04/2023 3:47 AM EDT 07/04/2023 4:15 AM EDT Narrative Resulting Agency Comment Spec In Lab Terrence Keating MD HEMATOLOGY ORDERABLE S [facility] [place] [address] * (ABNORMAL) Hemogram (07/04/2023 3:47 AM EDT) White Blood Cell 8.2 4.0 - 9.5 x10(3)/mc L [facility] Red Blood Cell 4.26 4.00 - 5.21 x10(6)/mc L [facility] Hemoglobin 13.5 11.7 - 15.5 g/dL [facility] Hematocrit 40.0 35.7 - 45.8 % [facility] Mean Cell Volume 93.9 82.6 - 94.4 fL [facility] Mean Cell Hemoglobin 31.7 27.1 - 32.0 pg [facility] Mean Cell Hemoglobin Concentration 33.8 31.7 - 35.0 g/dL [facility] Platelet 219 145 - 357 x10(3)/mc L [facility] RDW Standard Deviation 47.0(H) 37.0 - 46.0 fL [facility] RDW coefficient of variation 13.7 11.5 - 14.1 % [facility] Mean Platelet Volume 11.0 7.6 - 12.9 fL [facility] NRBC% auto 0.0 % [facility] NRBC Absolute 0.000 0.000 - 0.000 x10(3)/ L [facility] Blood 07/04/2023 3:47 AM EDT 07/04/2023 4:15 AM EDT Narrative Resulting Agency Comment Spec In Lab Terrence Keatnig MD HEMATOLOGY ORDERABLE S [facility] [place] [address] * Heparin (unfractionated) Level (07/04/2023 3:47 AM EDT) Pathologist [facility] UF Heparin 0.44 IU/mL LASHONDA HITC HCOCK [...] HEMATOLOGY ORDERABLE S [facility] [place] [address] * (ABNORMAL) Basic Metabolic Panel (non-fasting) (07/04/2023 3:47 AM EDT) Glucose 104 65 - 199 mg/dL [facility] Comment:Diabetes: >=200 mg/d L plus symptoms Blood Urea Nitrogen 16 8 - 18 mg/dL [facility] [...] mmol/L [facility] Carbon Dioxide 21(L) 22 - 31 mmol/L [facility] Anion Gap 16(H) 5 - 15 mmol/L [facility] Calcium 9.5 8.5 - 10.5 mg/dL [facility] Est Glomerular Filtration Rate 50(L) >=60 mL/min/1. 73 m?? [facility] [...] CHEMISTRY ORDERABL ES [facility] [address] * (ABNORMAL) Phosphorus (07/04/2023 3:47 AM EDT) Phosphorus 4.9(H) 2.5 - 4.5 mg/dL [facility] Blood 07/04/2023 3:47 AM EDT 07/04/2023 4:15 AM EDT Narrative Resulting Agency Comment Spec In Lab Eufemia Copeland MD CHEMISTRY ORDERABL ES [facility] [place] [address] * Magnesium (07/04/2023 3:47 AM EDT) Magnesium 1.05 0.69 - 1.07 mmol/L [facility] Blood 07/04/2023 3:47 AM EDT 07/04/2023 4:15 AM EDT Narrative Resulting Agency Comment Spec In Lab Eufemia Copeland MD CHEMISTRY ORDERABL ES Performing Organization Address [facility] Co de Phone Number [facility] [address] * EKG 12 Lead (07/03/2023 9:36 PM EDT) Ventricular rate 61 BPM MUSE SYSTEM Atrial Rate 61 BPM MUSE SYSTEM P-R Interval 188 ms MUSE SYSTEM QRS Duration 88 ms MUSE SYSTEM Q-T Interval 512 ms MUSE SYSTEM QTC Calculated (Bezet) 515 ms MUSE SYSTEM Calculated P [place] 56 degrees MUSE SYSTEM Calculated R [place] 69 degrees MUSE SYSTEM Calculated T [place] 29 degrees MUSE SYSTEM INTERPRETATION Normal sinus [...] Beck MD ECG ORDERABLES Performing Organization Address [facility] de Phone Number MUSE SYSTEM * Magnesium (07/03/2023 6:00 PM EDT) Pathologist [facility] Magnesium 0.89 0.69 - 1.07 mmol/L [facility] Blood 07/03/2023 6:00 PM EDT 07/03/2023 6:07 PM EDT Narrative Resulting Agency Comment Spec In Lab Lino Calles MD CHEMISTRY ORDERABLES Performing Organization Address [facility] Co de Phone Number [facility] [place] [address] * (ABNORMAL) Basic Metabolic Panel (non-fasting) (07/03/2023 6:00 PM EDT) Glucose 116 65 - 199 mg/dL [facility] Comment:Diabetes: >=200 mg/d L plus symptoms Blood Urea Nitrogen 16 8 - 18 mg/dL [facility] [...] mmol/L [facility] Carbon Dioxide 21(L) 22 - 31 mmol/L [facility] Anion Gap 14 5 - 15 mmol/L [facility] Calcium 9.5 8.5 - 10.5 mg/dL [facility] Est Glomerular Filtration Rate 46(L) >=60 mL/min/1. 73 m?? [facility] [...] In Lab Lino Calles MD CHEMISTRY ORDERABLES [facility] [place] [address] * XR Chest One View (07/03/2023 3:18 PM EDT) WORKSTATION ID [id number] RAD Anatomical Region Laterality Modality Chest N/A Digital Radiogra phy Impressions 07/03/2023 3:27 PM EDT No pulmonary edema or pleural effusion Thank you for letting us participate in the care of this patient. ??If you are a health care provider and have any questions regarding this report, please contact the number below. ??For patients who have questions please contact the health child care center assistant director that requested your imaging first. ? Electronically signed by: Itz Hayward MD, [facility] ??([phone]), at 07/03/2023 3:27 PM Narrative 07/03/2023 3:27 [...] have questions please contactthe health child care center assistant director that requested your imaging first. Lino Calles MD IMG DX ORDERABLES * Arterial Duplex Leg, Unil (07/03/2023 9:34 AM EDT) VB Text Report Department: Vascular Surgery Lab Patient: [id number] (LOIDA ROQUE) CPT: [id number] Referring Physician: LINO CALLES ?? Phone: Indications: [...] 3:07 AM EDT) Neutrophil % 67.2 % [facility] Neutrophil Absolute 5.51 1.70 - 6.10 x10(3)/[facility] Lymph % 20.7 % [facility] Lymphocytes Abs 1.7 0.9 - 3.2 x10(3)/[facility] Monocyte % 7.7 % [facility] Monocyte Abs 0.6 0.3 - 0.9 x10(3)/[facility] LABOR[facility]ORY Eos % 3.7 % [facility] Eosinophils Abs 0.3 0.0 - 0.4 x10(3)/[facility]ORY Basophil % 0.5 % [facility] Baso Absolute 0.0 0.0 - 0.1 x10(3)/[facility] Immature Gran % 0.20 % [facility] [...] x10(3)/[facility] Blood 07/03/2023 3:07 AM EDT 07/03/2023 3:15 AM EDT Narrative Resulting Agency Comment Spec In Lab Terrence Keating MD HEMATOLOGY ORDERABLE S [facility] [place] [address] * (ABNORMAL) Hemogram (07/03/2023 3:07 AM EDT) White Blood Cell 8.2 4.0 - 9.5 x10(3)/ L [facility] Red Blood Cell 3.97(L) 4.00 - 5.21 x10(6)/mc L [facility] Hemoglobin 12.5 11.7 - 15.5 g/dL [facility] Hematocrit 38.5 35.7 - 45.8 % [facility] Mean Cell Volume 97.0(H) 82.6 - 94.4 fL [facility] Mean Cell Hemoglobin 31.5 27.1 - 32.0 pg [facility] Mean Cell Hemoglobin Concentration 32.5 31.7 - 35.0 g/dL [facility] Platelet 203 145 - 357 x10(3)/[facility] RDW Standard Deviation 49.6(H) 37.0 - 46.0 fL [facility] RDW coefficient of variation 13.7 11.5 - 14.1 % [facility] Mean Platelet Volume 10.8 7.6 - 12.9 fL [facility] NRBC% auto 0.0 % [facility] NRBC Absolute 0.000 0.000 - 0.000 x10(3)/[facility] Blood 07/03/2023 3:07 AM EDT 07/03/2023 3:15 AM EDT Narrative Resulting Agency Comment Spec In Lab Terrence Keating MD HEMATOLOGY ORDERABLE S [facility] [place] [address] * Heparin (unfractionated) Level (07/03/2023 3:07 AM EDT) UF Heparin 0.49 IU/mL [facility] Comment: Heparin (anti-Xa) [...] HEMATOLOGY ORDERABLE S [facility] [place] [address] * (ABNORMAL) Basic Metabolic Panel (non-fasting) (07/03/2023 3:07 AM EDT) Glucose 104 65 - 199 mg/dL [facility] Comment:Diabetes: >=200 mg/d L plus symptoms Blood Urea Nitrogen 16 8 - 18 mg/dL [facility] [...] mmol/L [facility] Carbon Dioxide 20(L) 22 - 31 mmol/L [facility] Anion Gap 11 5 - 15 mmol/L [facility] Calcium 8.8 8.5 - 10.5 mg/dL [facility] Est Glomerular Filtration Rate 54(L) >=60 mL/min/1. 73 m?? [facility] [...] MD CHEMISTRY ORDERABL ES Performing Organization Address [facility] Co de Phone Number [facility] [place] [address] * Phosphorus (07/03/2023 3:07 AM EDT) Phosphorus 3.6 2.5 - 4.5 mg/dL [facility] Blood 07/03/2023 3:07 AM EDT 07/03/2023 3:15 AM EDT Narrative Resulting Agency Comment Spec In Lab Eufemia Copeland MD CHEMISTRY ORDERABL ES Performing Organization Address [facility] Co de Phone Number [facility] [place] [address] * Magnesium (07/03/2023 3:07 AM EDT) Magnesium 0.93 0.69 - 1.07 mmol/L [facility] Blood 07/03/2023 3:07 AM EDT 07/03/2023 3:15 AM EDT Narrative Resulting Agency Comment Spec In Lab Eufemia Copeland MD CHEMISTRY ORDERABL ES Performing Organization Address [facility] Co de Phone Number [facility] [address] * Heparin (unfractionated) Level (07/02/2023 8:58 PM EDT) UF Heparin 0.60 IU/mL [facility] Comment: Heparin (anti-Xa) [...] Lab Lino Calles MD HEMATOLOGY ORDERABLE S [facility] [place] [address] * VS Arteriogram Mesenteric Vascular Surgery (07/02/2023 [...] anesthetic: 10 cc 1% lidocaine Heparin: Yes [id number] ?? Units Protamine: No ??mg Antibiotics: Ancef [...] We exchanged the sheath for a 7 Maltese river guide steerable sheath over a stiff wire. ??A Glidewire and Kumpe catheter were used to selectively cannulate the superior mesenteric artery. ??Direct angiography of the superior mesenteric artery was performed, confirming the results of the nonselective aortography performed. ??The lesion was predilated with a 4 mm x 40 mm Votaw balloon, and then a 6 mm X [...] 3:58 AM EDT) Neutrophil % 61.3 % [facility] Neutrophil Absolute 4.67 1.70 - 6.10 x10(3)/[facility] Lymph % 27.6 % [facility] Lymphocytes Abs 2.1 0.9 - 3.2 x10(3)/[facility] LABOR[facility]ORY Monocyte % 6.4 % [facility] Monocyte Abs 0.5 0.3 - 0.9 x10(3)/[facility] Eos % 3.9 % [facility] Eosinophils Abs 0.3 0.0 - 0.4 x10(3)/[facility] Basophil % 0.5 % [facility] Baso Absolute 0.0 0.0 - 0.1 x10(3)/[facility]ORY Immature Gran % 0.30 % BAR[facility] [...] x10(3)/[facility] Blood 07/02/2023 3:58 AM EDT 07/02/2023 4:14 AM EDT Narrative Resulting Agency Comment Spec In Lab Terrence Keating MD HEMATOLOGY ORDERABLE S [facility] [place] [address] * (ABNORMAL) Hemogram (07/02/2023 3:58 AM EDT) White Blood Cell 7.6 4.0 - 9.5 x10(3)/ L [facility] Red Blood Cell 4.12 4.00 - 5.21 x10(6)/mc L [facility] Hemoglobin 12.9 11.7 - 15.5 g/dL [facility] Hematocrit 39.5 35.7 - 45.8 % [facility] Mean Cell Volume 95.9(H) 82.6 - 94.4 fL [facility] Mean Cell Hemoglobin 31.3 27.1 - 32.0 pg [facility] Mean Cell Hemoglobin Concentration 32.7 31.7 - 35.0 g/dL [facility] Platelet 200 145 - 357 x10(3)/mc L [facility] RDW Standard Deviation 47.4(H) 37.0 - 46.0 [facility] LABORATORY RDW coefficient of variation 13.3 11.5 - 14.1 % [facility] Mean Platelet Volume 10.8 7.6 - 12.9 [facility]ORY NRBC% auto 0.0 % [facility] NRBC Absolute 0.000 0.000 - 0.000 x10(3)/mc L [facility] Blood 07/02/2023 3:58 AM EDT 07/02/2023 4:14 AM EDT Narrative Resulting Agency Comment Spec In Lab Terrence Keating MD HEMATOLOGY ORDERABLE S Performing Organization Address City/State/[facility] Co de Phone Number [facility] [address] * Heparin (unfractionated) Level (07/02/2023 3:58 AM EDT) UF Heparin 0.57 IU/mL [facility] Comment: Heparin (anti-Xa) [...] HEMATOLOGY ORDERABLE S [facility] [place] [address] * (ABNORMAL) Basic Metabolic Panel (non-fasting) (07/02/2023 3:58 AM EDT) Glucose 96 65 - 199 mg/dL [facility] Comment:Diabetes: >=200 mg/d L plus symptoms Blood Urea Nitrogen 15 8 - 18 mg/dL [facility] [...] mmol/L [facility] Carbon Dioxide 21(L) 22 - 31 mmol/L [facility] Anion Gap 8 5 - 15 mmol/L [facility] Calcium 8.8 8.5 - 10.5 mg/dL [facility] Est Glomerular Filtration Rate 53(L) >=60 mL/min/1. 73 m?? [facility] [...] MD CHEMISTRY ORDERABL ES Performing Organization Address [facility] Co de Phone Number [facility] [place] [address] * Phosphorus (07/02/2023 3:58 AM EDT) Phosphorus 3.8 2.5 - 4.5 mg/dL [facility] Blood 07/02/2023 3:58 AM EDT 07/02/2023 4:14 AM EDT Narrative Resulting Agency Comment Spec In Lab Eufemia Copeland MD CHEMISTRY ORDERABL ES Performing Organization Address [facility] Co de Phone Number [facility] [address] * Magnesium (07/02/2023 3:58 AM EDT) Magnesium 0.95 0.69 - 1.07 mmol/L [facility] Blood 07/02/2023 3:58 AM EDT 07/02/2023 4:14 AM EDT Narrative Resulting Agency Comment Spec In Lab Eufemia Copeland MD CHEMISTRY ORDERABL ES Performing Organization Address [facility] Co de Phone Number [facility] [address] * EKG 12 Lead (07/01/2023 12:08 PM EDT) Ventricular rate 48 BPM MUSE SYSTEM Atrial Rate 48 BPM MUSE SYSTEM P-R Interval 192 ms MUSE SYSTEM QRS Duration 92 ms MUSE SYSTEM Q-T Interval 474 ms MUSE SYSTEM QTC Calculated (Bezet) 423 ms MUSE SYSTEM Calculated P [place] 32 degrees MUSE SYSTEM Calculated R [place] 45 degrees MUSE SYSTEM Calculated T [place] 0 degrees MUSE SYSTEM INTERPRETATION Sinus bradycardia [...] 2:56 AM EDT) Neutrophil % 50.5 % [facility] Neutrophil Absolute 3.47 1.70 - 6.10 x10(3)/[facility] Lymph % 36.5 % [facility] Lymphocytes Abs 2.5 0.9 - 3.2 x10(3)/[facility] Monocyte % 7.7 % [facility] Monocyte Abs 0.5 0.3 - 0.9 x10(3)/[facility] Eos % 4.5 % [facility] Eosinophils Abs 0.3 0.0 - 0.4 x10(3)/[facility] Basophil % 0.7 % [facility] Baso Absolute 0.0 0.0 - 0.1 x10(3)/[facility] Immature Gran % 0.10 % [facility] Comment: Immature granulocytes(IG's)percentage and absolute count will include metamyelocytes, myelocytes, and promyelocytes. Blood smears from CBCs yielding IG's will be scanned manually for concordance. If this scan disagrees with the automated IG or if promyelocytes are noted, a manual differential will be performed. Immature Gran Absolute 0.01 0.00 - 0.04 x10(3)/mcL [facility] Blood 07/01/2023 2:56 AM EDT 07/01/2023 3:22 AM EDT Narrative Resulting Agency Comment Spec In Lab Terrence Keating MD HEMATOLOGY ORDERABLE S [facility] [place] [address] * (ABNORMAL) Hemogram (07/01/2023 2:56 AM EDT) White Blood Cell 6.9 4.0 - 9.5 x10(3)/mc L [facility] Red Blood Cell 4.04 4.00 - 5.21 x10(6)/mc L [facility] Hemoglobin 12.8 11.7 - 15.5 g/dL [facility] Hematocrit 39.0 35.7 - 45.8 % [facility] Mean Cell Volume 96.5(H) 82.6 - 94.4 fL [facility] Mean Cell Hemoglobin 31.7 27.1 - 32.0 pg [facility] Mean Cell Hemoglobin Concentration 32.8 31.7 - 35.0 g/dL [facility] Platelet 224 145 - 357 x10(3)/mc L [facility] RDW Standard Deviation 47.8(H) 37.0 - 46.0 fL [facility] RDW coefficient of variation 13.3 11.5 - 14.1 % [facility] Mean Platelet Volume 11.1 7.6 - 12.9 fL [facility] NRBC% auto 0.0 % [facility] NRBC Absolute 0.000 0.000 - 0.000 x10(3)/mc L [facility] Blood 07/01/2023 2:56 AM EDT 07/01/2023 3:22 AM EDT Narrative Resulting Agency Comment Spec In Lab Terrence Keating MD HEMATOLOGY ORDERABLE S Performing Organization Address City/[facility]/ZIP Co de Phone Number [facility] [address] * Heparin (unfractionated) Level (07/01/2023 2:56 AM EDT) UF Heparin 0.56 IU/mL [facility] Comment: Heparin (anti-Xa) [...] MD HEMATOLOGY ORDERABLE S Performing Organization Address City/[facility]/ZIP Co de Phone Number [facility] [address] * (ABNORMAL) Basic Metabolic Panel (non-fasting) (07/01/2023 2:56 AM EDT) Glucose 95 65 - 199 mg/dL [facility] Comment:Diabetes: >=200 mg/d L plus symptoms Blood Urea Nitrogen 16 8 - 18 mg/dL [facility] [...] mmol/L [facility] Carbon Dioxide 22 22 - 31 mmol/L [facility] Anion Gap 10 5 - 15 mmol/L [facility] Calcium 9.0 8.5 - 10.5 mg/dL [facility] Est Glomerular Filtration Rate 53(L) >=60 mL/min/1. 73 m?? [facility] [...] CHEMISTRY ORDERABL ES [facility] [place] [address] * Phosphorus (07/01/2023 2:56 AM EDT) Phosphorus 4.1 2.5 - 4.5 mg/dL [facility] Blood 07/01/2023 2:56 AM EDT 07/01/2023 3:22 AM EDT Narrative Resulting Agency Comment Spec In Lab Eufemia Copeland MD CHEMISTRY ORDERABL ES Performing Organization Address [facility] Co de Phone Number [facility] [address] * Magnesium (07/01/2023 2:56 AM EDT) Magnesium 0.95 0.69 - 1.07 mmol/L [facility] Blood 07/01/2023 2:56 AM EDT 07/01/2023 3:22 AM EDT Narrative Resulting Agency Comment Spec In Lab Eufemia Copeland MD CHEMISTRY ORDERABL ES Performing Organization Address [facility] Co de Phone Number [facility] [place] [address] * Heparin (unfractionated) Level (06/30/2023 9:24 AM EDT) UF Heparin 0.62 IU/mL [facility] Comment: Heparin (anti-Xa) [...] MD HEMATOLOGY ORDERABLE S Performing Organization Address [facility] Co de Phone Number [facility] [address] * Differential, Automated (06/30/2023 3:14 AM EDT) Neutrophil % 49.5 % [facility] Neutrophil Absolute 3.96 1.70 - 6.10 x10(3)/[facility] Lymph % 36.6 % [facility] Lymphocytes Abs 2.9 0.9 - 3.2 x10(3)/[facility] Monocyte % 8.6 % [facility] Monocyte Abs 0.7 0.3 - 0.9 x10(3)/[facility] Eos % 4.1 % [facility] Eosinophils Abs 0.3 0.0 - 0.4 x10(3)/[facility] Basophil % 0.8 % [facility] Baso Absolute 0.1 0.0 - 0.1 x10(3)/[facility] Immature Gran % 0.40 % BAR[facility] [...] x10(3)/[facility] Blood 06/30/2023 3:14 AM EDT 06/30/2023 3:23 AM EDT Narrative Resulting Agency Comment Spec In Lab Terrence Keating MD HEMATOLOGY ORDERABLE S [facility] [place] [address] * Hemogram (06/30/2023 3:14 AM EDT) White Blood Cell 8.0 4.0 - 9.5 x10(3)/[facility] Red Blood Cell 4.22 4.00 - 5.21 x10(6)/[facility] Hemoglobin 13.1 11.7 - 15.5 g/dL [facility] Hematocrit 39.5 35.7 - 45.8 % [facility] Mean Cell Volume 93.6 82.6 - 94.4 fL [facility] Mean Cell Hemoglobin 31.0 27.1 - 32.0 pg [facility] Mean Cell Hemoglobin Concentration 33.2 31.7 - 35.0 g/dL [facility] Platelet 235 145 - 357 x10(3)/[facility] RDW Standard Deviation 45.3 37.0 - 46.0 fL [facility] RDW coefficient of variation 13.3 11.5 - 14.1 % [facility] Mean Platelet Volume 11.0 7.6 - 12.9 fL [facility] NRBC% auto 0.0 % [facility] NRBC Absolute 0.000 0.000 - 0.000 x10(3)/[facility] Blood 06/30/2023 3:14 AM EDT 06/30/2023 3:23 AM EDT Narrative Resulting Agency Comment Spec In Lab Terrence Keating MD HEMATOLOGY ORDERABLE S [facility] [place] [address] * Heparin (unfractionated) Level (06/30/2023 3:14 AM EDT) UF Heparin 0.70 IU/mL [facility] Comment: Heparin (anti-Xa) [...] HEMATOLOGY ORDERABLE S [facility] [place] [address] * (ABNORMAL) Basic Metabolic Panel (non-fasting) (06/30/2023 3:14 AM EDT) Glucose 103 65 - 199 mg/dL [facility] Comment:Diabetes: >=200 mg/d L plus symptoms Blood Urea Nitrogen 18 8 - 18 mg/dL [facility] [...] mmol/L [facility] Carbon Dioxide 23 22 - 31 mmol/L [facility] Anion Gap 10 5 - 15 mmol/L [facility] Calcium 9.1 8.5 - 10.5 mg/dL [facility] Est Glomerular Filtration Rate 53(L) >=60 mL/min/1. 73 m?? [facility] [...] MD CHEMISTRY ORDERABL ES Performing Organization Address [facility] Co de Phone Number [facility] [place] [address] * Phosphorus (06/30/2023 3:14 AM EDT) Phosphorus 4.4 2.5 - 4.5 mg/dL [facility] Blood 06/30/2023 3:14 AM EDT 06/30/2023 3:23 AM EDT Narrative Resulting Agency Comment Spec In Lab Eufemia Copeland MD CHEMISTRY ORDERABL ES Performing Organization Address [facility] Co de Phone Number [facility] [address] * Magnesium (06/30/2023 3:14 AM EDT) Magnesium 0.94 0.69 - 1.07 mmol/L [facility] Blood 06/30/2023 3:14 AM EDT 06/30/2023 3:23 AM EDT Narrative Resulting Agency Comment Spec In Lab Eufemia Copeland MD CHEMISTRY ORDERABL ES Performing Organization Address [facility] Co de Phone Number [facility] [address] * Heparin (unfractionated) Level (06/29/2023 8:47 PM EDT) UF Heparin 0.75 IU/mL [facility] Comment: Heparin (anti-Xa) [...] MD HEMATOLOGY ORDERABLE S Performing Organization Address City/[facility]/ZIP Co de Phone Number [facility] [place] [address] * EKG 12 Lead (06/29/2023 12:55 PM EDT) [facility] Ventricular rate 53 BPM MUSE SYSTEM Atrial Rate 53 BPM MUSE SYSTEM P-R Interval 196 ms MUSE SYSTEM QRS Duration 90 ms MUSE SYSTEM Q-T Interval 564 ms MUSE SYSTEM QTC Calculated (Bezet) 529 ms MUSE SYSTEM Calculated P [place] 30 degrees MUSE SYSTEM Calculated R [place] 53 degrees MUSE SYSTEM Calculated T [place] 5 degrees MUSE SYSTEM INTERPRETATION Sinus bradycardia Marked ST abnormality, possible inferior subendocardial injury Prolonged QT Abnormal ECG When compared with ECG of 26-JUN-2023 06:04, Nonspecific T wave abnormality no longer evident in Anterolateral leads QT has lengthened Confirmed by MD Angelo Danette ([id number]) on 06/29/2023 8:34:43 PM MUSE SYSTEM 06/29/2023 12:5 5 PM EDT 06/29/2023 8:34 PM EDT Terrence Keating MD ECG ORDERABLES Performing Organization Address City/[facility]/ZIP Co de Phone Number MUSE SYSTEM * (ABNORMAL) Heparin (unfractionated) Level (06/29/2023 11:34 AM EDT) [facility] UF Heparin 1.41(Crit ical) IU/mL [facility] [...] HEMATOLOGY ORDERABLE S [facility] [place] [address] * Differential, Automated (06/29/2023 2:39 AM EDT) [facility] Neutrophil % 53.8 % [facility] Neutrophil Absolute 4.46 1.70 - 6.10 x10(3)/[facility] Lymph % 33.5 % [facility] Lymphocytes Abs 2.8 0.9 - 3.2 x10(3)/[facility] Monocyte % 8.3 % [facility] Monocyte Abs 0.7 0.3 - 0.9 x10(3)/[facility] Eos % 3.5 % [facility] Eosinophils Abs 0.3 0.0 - 0.4 x10(3)/[facility] Basophil % 0.5 % [facility] Baso Absolute 0.0 0.0 - 0.1 x10(3)/[facility] Immature Gran % 0.40 % BAR[facility] [...] x10(3)/[facility] Blood 06/29/2023 2:39 AM EDT 06/29/2023 3:33 AM EDT Narrative Resulting Agency Comment Spec In Lab Terrence Keating MD HEMATOLOGY ORDERABLE S [facility] [place] [address] * Hemogram (06/29/2023 2:39 AM EDT) White Blood Cell 8.3 4.0 - 9.5 x10(3)/[facility] Red Blood Cell 4.19 4.00 - 5.21 x10(6)/[facility] Hemoglobin 13.2 11.7 - 15.5 g/dL [facility] Hematocrit 38.9 35.7 - 45.8 % [facility] Mean Cell Volume 92.8 82.6 - 94.4 fL [facility] Mean Cell Hemoglobin 31.5 27.1 - 32.0 pg [facility] Mean Cell Hemoglobin Concentration 33.9 31.7 - 35.0 g/dL [facility] Platelet 237 145 - 357 x10(3)/[facility] RDW Standard Deviation 45.3 37.0 - 46.0 fL [facility] RDW coefficient of variation 13.3 11.5 - 14.1 % [facility] Mean Platelet Volume 11.4 7.6 - 12.9 fL [facility] NRBC% auto 0.0 % [facility] NRBC Absolute 0.000 0.000 - 0.000 x10(3)/mcL [facility] Blood 06/29/2023 2:39 AM EDT 06/29/2023 3:33 AM EDT Narrative Resulting Agency Comment Spec In Lab Terrence Keating MD HEMATOLOGY ORDERABLE S [facility] [place] [address] * (ABNORMAL) Heparin (unfractionated) Level (06/29/2023 2:39 AM EDT) UF Heparin 1.77(Crit ical) IU/mL [facility] Comment: Specimen drawn more than one hour prior to testing. Results may not be reliable for heparin monitoring. Result may be falsely low. Critical Result called by ?? [facility] Results read back by: ? Guilherme [...] HEMATOLOGY ORDERABLE S [facility] [place] [address] * (ABNORMAL) Basic Metabolic Panel (non-fasting) (06/29/2023 2:39 AM EDT) Glucose 100 65 - 199 mg/dL [facility] [...] mmol/L [facility] Carbon Dioxide 22 22 - 31 mmol/L [facility] Anion Gap 11 5 - 15 mmol/L [facility] Calcium 9.1 8.5 - 10.5 mg/dL [facility] Est Glomerular Filtration Rate 55(L) >=60 mL/min/1. 73 m?? [facility] [...] MD CHEMISTRY ORDERABL ES Performing Organization Address [facility] de Phone Number [facility] [place] [address] * Phosphorus (06/29/2023 2:39 AM EDT) Phosphorus 4.0 2.5 - 4.5 mg/dL [facility] Blood 06/29/2023 2:39 AM EDT 06/29/2023 3:33 AM EDT Narrative Resulting Agency Comment Spec In Lab Eufemia Copeland MD CHEMISTRY ORDERABL ES Performing Organization Address [facility] Phone Number [facility] [place] [address] * Magnesium (06/29/2023 2:39 AM EDT) Magnesium 0.92 0.69 - 1.07 mmol/L [facility] Blood 06/29/2023 2:39 AM EDT 06/29/2023 3:33 AM EDT Narrative Resulting Agency Comment Spec In Lab Eufemia Copeland MD CHEMISTRY ORDERABL ES Performing Organization Address [facility] Phone Number [facility] [place] [address] * US Abdomen Limited (06/28/2023 12:22 PM EDT) WORKSTATION ID [id number] RAD Anatomical Region Laterality Modality Abdomen Ultrasound [...] PM Electronically signed by: Sigrid Owens MD, [facility] ([phone]), at 06/28/2023 2:02 PM Thank you for letting us participate in the care of this patient. If you are a health care provider and have any questions regarding this report, please contact the number above. For patients who have questions, please contact the health child care center assistant director that requested your imaging first. ?Sigrid Owens, [facility] Harness Maker Electronically Signed Final Report ?? 06/28/2023 02:08 pm Narrative 06/28/2023 2:08 PM EDT Abdominal ? (Signed Final 06/28/2023 02:08 pm) PATIENT INFO: ID #: ? [id number] ?: ??[birth year] (53 yrs)(F) Name: ? LOIDA ?Visit Date: 06/28/2023 12:20 pm ? ROHAN PERFORMED BY: Attending: ?Sigrid Owens MD Resident: ? Karo JOHN, Rafaela Performed By: ? Rick STANFORD, ??Deena Referred By: ?AILYN IRVIN Location: ? [place] SERVICE(S) PROVIDED: UABDLIM - Abdominal Limited Survey Single ? [id number] Organ or Quadrant - [id number] INDICATIONS: RUQ pain, R/o Gall bladder colic, [...] 06/28/2023 02:08 pm) PATIENT INFO: ID #: [id number] : [birth year] (53 yrs)(F) Name: LOIDA Visit Date: 06/28/2023 12:20 pm ROHAN PERFORMED BY: Attending: Sigrid Owens MD Resident: Rafaela Huddleston MD Performed By: Deena Cabrera RDMS Referred By: AILYN IRVIN Location: [place] SERVICE(S) PROVIDED: UABDLIM - Abdominal Limited Survey Single 70725 Organ or Quadrant - [id number] INDICATIONS: RUQ pain, R/o Gall bladder colic, [...] PM Electronically signed by: Sigrid Owens MD, [facility] ([phone]), at 06/28/2023 2:02 PM Thank you for letting us participate in the care of this patient. If you are a health care provider and have any questions regarding this report, please contact the number above. For patients who have questions, please contact the health child care center assistant director that requested your imaging first. Sigrid Owens, E Harness Maker Electronically Signed Final Report 06/28/2023 02:08 pm Ailyn Irvin MD IMG US GEN ORDERABLE S * Duplex Study Visceral Arteries, Comp (06/28/2023 10:19 AM EDT) VB Text Report Department: Vascular Surgery Lab Patient: [id number] (LOIDA ROQUE) CPT: [id number] Referring Physician: HEIDY SULLIVAN ?? Indications: abdominal pain, ? patency/stenosi s Findings: Unilateral ? Waveform ? PSV cm/s ??EDV cm/s ??Patent ?? Dary Visceral Aorta ? 80 ?16 ? Celiac Artery, Proximal ??[place]-Biphasic ? 119 ?26 ? Celiac Artery, Mid ? [place]-Biphasic ? 115 ?21 ? Celiac Artery, Distal ? No Vis ?? Sup Mes Artery Proximal ??Biphasic ?427 ?91 ? Sup Mes Artery Middle ?[place]-Biphasic ? 100 ?17 ? Sup Mes Artery Distal ?[place]-Biphasic ?64 ?15 ? Hepatic Artery ?No Vis [...] 1:52 AM EDT) Neutrophil % 55.3 % [facility] Neutrophil Absolute 4.46 1.70 - 6.10 x10(3)/[facility] Lymph % 30.6 % [facility] Lymphocytes Abs 2.5 0.9 - 3.2 x10(3)/[facility] Monocyte % 8.8 % [facility] Monocyte Abs 0.7 0.3 - 0.9 x10(3)/[facility] Eos % 4.6 % [facility] Eosinophils Abs 0.4 0.0 - 0.4 x10(3)/[facility] Basophil % 0.5 % [facility] Baso Absolute 0.0 0.0 - 0.1 x10(3)/[facility] Immature Gran % 0.20 % [facility] Comment: Immature granulocytes(IG's)percentage and absolute count will include metamyelocytes, myelocytes, and promyelocytes. Blood smears from CBCs yielding IG's will be scanned manually for concordance. If this scan disagrees with the automated IG or if promyelocytes are noted, a manual differential will be performed. Immature Gran Absolute 0.02 0.00 - 0.04 x10(3)/[facility] Blood 06/28/2023 1:52 AM EDT 06/28/2023 2:05 AM EDT Narrative Resulting Agency Comment Spec In Lab Terrence Keating MD HEMATOLOGY ORDERABLE S [facility] [place] [address] * Hemogram (06/28/2023 1:52 AM EDT) White Blood Cell 8.1 4.0 - 9.5 x10(3)/[facility] Red Blood Cell 4.30 4.00 - 5.21 x10(6)/[facility] Hemoglobin 13.4 11.7 - 15.5 g/dL [facility] Hematocrit 40.6 35.7 - 45.8 % [facility] Mean Cell Volume 94.4 82.6 - 94.4 fL [facility] Mean Cell Hemoglobin 31.2 27.1 - 32.0 pg [facility] Mean Cell Hemoglobin Concentration 33.0 31.7 - 35.0 g/dL [facility] Platelet 238 145 - 357 x10(3)/[facility] RDW Standard Deviation 45.7 37.0 - 46.0 fL [facility] RDW coefficient of variation 13.2 11.5 - 14.1 % [facility] Mean Platelet Volume 10.8 7.6 - 12.9 fL [facility] NRBC% auto 0.0 % [facility] NRBC Absolute 0.000 0.000 - 0.000 x10(3)/[facility] Blood 06/28/2023 1:52 AM EDT 06/28/2023 2:05 AM EDT Narrative Resulting Agency Comment Spec In Lab Terrence Keating MD HEMATOLOGY ORDERABLE S [facility] [place] [address] * (ABNORMAL) Basic Metabolic Panel (non-fasting) (06/28/2023 1:52 AM EDT) Glucose 101 65 - 199 mg/dL [facility] Comment:Diabetes: >=200 mg/d L plus symptoms Blood Urea Nitrogen 24(H) 8 - 18 mg/dL [facility] [...] mmol/L [facility] Carbon Dioxide 21(L) 22 - 31 mmol/L [facility] Anion Gap 12 5 - 15 mmol/L [facility] Calcium 9.0 8.5 - 10.5 mg/dL [facility] Est Glomerular Filtration Rate 53(L) >=60 mL/min/1. 73 m?? [facility] [...] CHEMISTRY ORDERABL ES [facility] [place] [address] * Phosphorus (06/28/2023 1:52 AM EDT) Phosphorus 4.5 2.5 - 4.5 mg/dL [facility] Blood 06/28/2023 1:52 AM EDT 06/28/2023 2:05 AM EDT Narrative Resulting Agency Comment Spec In Lab Eufemia Copeland MD CHEMISTRY ORDERABL ES Performing Organization Address City/[facility]/ZIP Co de Phone Number [facility] [place] [address] * Magnesium (06/28/2023 1:52 AM EDT) Magnesium 0.93 0.69 - 1.07 mmol/L [facility] Blood 06/28/2023 1:52 AM EDT 06/28/2023 2:05 AM EDT Narrative Resulting Agency Comment Spec In Lab Eufemia Copeland MD CHEMISTRY ORDERABL ES Performing Organization Address [facility] Co de Phone Number [facility] [place] [address] * (ABNORMAL) Basic Metabolic Panel (non-fasting) (06/27/2023 8:06 PM EDT) Pathologist [facility] Glucose 94 65 - 199 mg/dL [facility] Comment:Diabetes: >=200 mg/d L plus symptoms Blood Urea Nitrogen 24(H) 8 - 18 mg/dL [facility] [...] mmol/L [facility] Carbon Dioxide 24 22 - 31 mmol/L [facility] Anion Gap 11 5 - 15 mmol/L [facility] Calcium 9.3 8.5 - 10.5 mg/dL [facility] Est Glomerular Filtration Rate 50(L) >=60 mL/min/1. 73 m?? [facility] [...] Irvin MD CHEMISTRY ORDERABLES Performing Organization Address City/[facility]/ZIP Co de Phone Number [facility] [place] [address] * (ABNORMAL) Hepatic Function Panel (06/27/2023 4:34 AM EDT) Pathologist [facility] Protein, Total 6.4 6.1 - 8.0 g/dL [facility] Albumin 3.8 3.2 - 5.2 g/dL [facility] Aspartate Aminotransferase 21 0 - 30 unit/L [facility] Alanine Aminotransferase 22 0 - 30 unit/L [facility] Alkaline Phosphatase 56 35 - 105 unit/L [facility] Bilirubin, Total <0.2(L) 0.2 - 1.3 mg/dL [facility] Bilirubin, Direct <0.1 0.0 - 0.3 mg/dL [facility] Blood Venous Draw / Unknown 06/27/2023 4:34 AM EDT 06/27/2023 4:53 AM EDT Narrative Resulting Agency Comment Spec In Lab Aliyn Irvin MD CHEMISTRY ORDERABLES Performing Organization Address City/[facility] Hospital/ZIP Co de Phone Number [facility] [place] [address] * Differential, Automated (06/27/2023 4:34 AM EDT) Pathologist [facility] Neutrophil % 52.7 % [facility] Neutrophil Absolute 4.01 1.70 - 6.10 x10(3)/[facility] Lymph % 33.8 % [facility] Lymphocytes Abs 2.6 0.9 - 3.2 x10(3)/[facility] Monocyte % 8.8 % [facility] Monocyte Abs 0.7 0.3 - 0.9 x10(3)/[facility] Eos % 3.8 % [facility] Eosinophils Abs 0.3 0.0 - 0.4 x10(3)/[facility] Basophil % 0.5 % [facility] Baso Absolute 0.0 0.0 - 0.1 x10(3)/[facility] Immature Gran % 0.40 % [facility] [...] x10(3)/[facility] Blood 06/27/2023 4:34 AM EDT 06/27/2023 4:51 AM EDT Narrative Resulting Agency Comment Spec In Lab Terrence Keating MD HEMATOLOGY ORDERABLE S [facility] [place] [address] * Hemogram (06/27/2023 4:34 AM EDT) Pathologist [facility] White Blood Cell 7.6 4.0 - 9.5 x10(3)/[facility] Red Blood Cell 4.15 4.00 - 5.21 x10(6)/[facility] Hemoglobin 12.9 11.7 - 15.5 g/dL [facility] Hematocrit 39.0 35.7 - 45.8 % [facility] Mean Cell Volume 94.0 82.6 - 94.4 fL [facility] Mean Cell Hemoglobin 31.1 27.1 - 32.0 pg [facility] Mean Cell Hemoglobin Concentration 33.1 31.7 - 35.0 g/dL [facility] Platelet 245 145 - 357 x10(3)/[facility] RDW Standard Deviation 45.2 37.0 - 46.0 fL [facility] RDW coefficient of variation 13.2 11.5 - 14.1 % [facility] Mean Platelet Volume 11.2 7.6 - 12.9 fL [facility] NRBC% auto 0.0 % [facility] NRBC Absolute 0.000 0.000 - 0.000 x10(3)/[facility] Blood 06/27/2023 4:34 AM EDT 06/27/2023 4:51 AM EDT Narrative Resulting Agency Comment Spec In Lab Terrence Keating MD HEMATOLOGY ORDERABLE S [facility] [place] [address] * (ABNORMAL) Basic Metabolic Panel (non-fasting) (06/27/2023 4:34 AM EDT) Glucose 99 65 - 199 mg/dL [facility] Comment:Diabetes: >=200 mg/d L plus symptoms Blood Urea Nitrogen 26(H) 8 - 18 mg/dL [facility] [...] mmol/L [facility] Carbon Dioxide 22 22 - 31 mmol/L [facility] Anion Gap 11 5 - 15 mmol/L [facility] Calcium 9.1 8.5 - 10.5 mg/dL [facility] Est Glomerular Filtration Rate 53(L) >=60 mL/min/1. 73 m?? [facility] [...] MD CHEMISTRY ORDERABL ES Performing Organization Address City/[facility] Co de Phone Number [facility] [place] [address] * (ABNORMAL) Phosphorus (06/27/2023 4:34 AM EDT) Phosphorus 4.7(H) 2.5 - 4.5 mg/dL [facility] Blood 06/27/2023 4:34 AM EDT 06/27/2023 4:51 AM EDT Narrative Resulting Agency Comment Spec In Lab Eufemia Copeland MD CHEMISTRY ORDERABL ES [facility] [place] [address] * Magnesium (06/27/2023 4:34 AM EDT) Magnesium 0.90 0.69 - 1.07 mmol/L [facility] Blood 06/27/2023 4:34 AM EDT 06/27/2023 4:51 AM EDT Narrative Resulting Agency Comment Spec In Lab Eufemia Copeland MD CHEMISTRY ORDERABL ES Performing Organization Address [facility]/ZIP Co de Phone Number [facility] [place] [address] * (ABNORMAL) Basic Metabolic Panel (non-fasting) (06/26/2023 4:58 PM EDT) Pathologist [facility] Glucose 106 65 - 199 mg/dL [facility] Comment:Diabetes: >=200 mg/d L plus symptoms Blood Urea Nitrogen 24(H) 8 - 18 mg/dL [facility] [...] mmol/L [facility] Carbon Dioxide 21(L) 22 - 31 mmol/L [facility] Anion Gap 13 5 - 15 mmol/L [facility] Calcium 9.1 8.5 - 10.5 mg/dL [facility] Est Glomerular Filtration Rate 52(L) >=60 mL/min/1. 73 m?? [facility] [...] Irvin MD CHEMISTRY ORDERABLES Performing Organization Address [facility] Co de Phone Number [facility] [place] [address] * Urinalysis Microscopic Exam (06/26/2023 11:09 AM EDT) RBC, Urine 0 0 - 4 /HPF [facility] WBC, Urine 3 0 - 5 /HPF [facility] Squamous Epithelial Cells Raw Data, Urine 1 <=4 /HPF [facility] Hyaline Casts, Urine 1 0 - 2 /LPF [facility] Clean Catch Urine 06/26/2023 11:09 AM EDT 06/26/2023 5:45 PM EDT Narrative Resulting Agency Comment Spec In Lab Ailyn Irvin MD URINE ORDERABLES Performing Organization Address [facility] Co de Phone Number [facility] [place] [address] * (ABNORMAL) Urinalysis with reflex Culture (06/26/2023 11:09 AM EDT) Glucose, Urine Dipstick Negative Negative mg/dL [facility] Protein, Urine Dipstick Negative Negative mg/dL [facility] Bilirubin, Urine Dipstick Negative Negative mg/dL [facility] Comment: Clinical correlation required for positive Urine Bilirubin results as false positive may occur with some drugs and drug related products. If a false positive is suspected a serum total bilirubin should be considered if clinically indicated. Urobilinogen, Urine Dipstick Normal Normal mg/dL [facility] pH, Urn (dipstick) 6.0 5.0 - 8.0 [facility] Blood, Urine Dipstick Negative Negative mg/dL [facility] Ketone, Urine Dipstick Negative Negative mg/dL [facility] Nitrite, Urine Dipstick Negative Negative [facility] Leukocytes, Urine Dipstick Trace(A) Negative [facility] Appearance, Urine Dipstick Clear Clear [facility] Specific [place] Urine Automated 1.013 1.005 - 1.030 [facility] Color, Urine Dipstick Yellow Yellow [facility] Reflex to Culture No [facility] Clean Catch Urine 06/26/2023 11:09 AM EDT 06/26/2023 5:45 PM EDT Narrative Resulting Agency Comment Spec In Lab Ailyn Irvin MD URINE ORDERABLES [facility] [place] [address] * EKG 12 Lead (06/26/2023 6:04 AM EDT) Ventricular rate 46 BPM MUSE SYSTEM Atrial Rate 46 BPM MUSE SYSTEM P-R Interval 204 ms MUSE SYSTEM QRS Duration 90 ms MUSE SYSTEM Q-T Interval 466 ms MUSE SYSTEM QTC Calculated (Bezet) 407 ms MUSE SYSTEM Calculated P [place] 38 degrees MUSE SYSTEM Calculated R [place] 48 degrees MUSE SYSTEM Calculated T [place] 13 degrees MUSE SYSTEM INTERPRETATION Sinus bradycardia Nonspecific ST and T wave abnormality Abnormal ECG When compared with ECG of 23-JUN-2023 09:54, No significant change was found Confirmed by MD Dalia, Willy Huerta ([id number]) on 06/29/2023 6:09:20 AM MUSE SYSTEM 06/26/2023 6:04 AM EDT 06/29/2023 6:09 AM EDT Eufemia Copeland MD ECG ORDERABLES MUSE SYSTEM * Differential, Automated (06/26/2023 4:06 AM EDT) Neutrophil % 55.3 % [facility] Neutrophil Absolute 4.63 1.70 - 6.10 x10(3)/[facility] Lymph % 32.6 % [facility] Lymphocytes Abs 2.7 0.9 - 3.2 x10(3)/[facility] Monocyte % 8.2 % [facility] Monocyte Abs 0.7 0.3 - 0.9 x10(3)/[facility] Eos % 3.2 % [facility] Eosinophils Abs 0.3 0.0 - 0.4 x10(3)/[facility] Basophil % 0.5 % [facility] Baso Absolute 0.0 0.0 - 0.1 x10(3)/[facility] Immature Gran % 0.20 % [facility] [...] x10(3)/[facility] Blood 06/26/2023 4:06 AM EDT 06/26/2023 4:18 AM EDT Narrative Resulting Agency Comment Spec In Lab Terrence Keating MD HEMATOLOGY ORDERABLE S [facility] [place] [address] * (ABNORMAL) Hemogram (06/26/2023 4:06 AM EDT) White Blood Cell 8.4 4.0 - 9.5 x10(3)/mc L [facility] Red Blood Cell 4.52 4.00 - 5.21 x10(6)/mc L [facility] Hemoglobin 14.0 11.7 - 15.5 g/dL [facility] Hematocrit 43.6 35.7 - 45.8 % [facility] Mean Cell Volume 96.5(H) 82.6 - 94.4 fL [facility] Mean Cell Hemoglobin 31.0 27.1 - 32.0 pg [facility] Mean Cell Hemoglobin Concentration 32.1 31.7 - 35.0 g/dL [facility] Platelet 258 145 - 357 x10(3)/[facility] LABORATORY RDW Standard Deviation 46.7(H) 37.0 - 46.0 [facility] LAB[facility]ATORY RDW coefficient of variation 13.2 11.5 - 14.1 % [facility] Mean Platelet Volume 11.1 7.6 - 12.9 fL [facility] NRBC% auto 0.0 % [facility] NRBC Absolute 0.000 0.000 - 0.000 x10(3)/[facility] Blood 06/26/2023 4:06 AM EDT 06/26/2023 4:18 AM EDT Narrative Resulting Agency Comment Spec In Lab Terrence Keating MD HEMATOLOGY ORDERABLE S [facility] [place] [address] * (ABNORMAL) Basic Metabolic Panel (non-fasting) (06/26/2023 4:06 AM EDT) Pathologist [facility] Glucose 100 65 - 199 mg/dL [facility] Comment:Diabetes: >=200 mg/d L plus symptoms Blood Urea Nitrogen 25(H) 8 - 18 mg/dL [facility] Est Glomerular Filtration Rate 52(L) >=60 mL/min/1. 73 m?? [facility] [...] CHEMISTRY ORDERABL ES [facility] [place] [address] * Phosphorus (06/26/2023 4:06 AM EDT) Phosphorus 4.3 2.5 - 4.5 mg/dL [facility] Blood 06/26/2023 4:06 AM EDT 06/26/2023 4:18 AM EDT Narrative Resulting Agency Comment Spec In Lab Eufemia Copeland MD CHEMISTRY ORDERABL ES Performing Organization Address [facility] Co de Phone Number [facility] [place] [address] * Magnesium (06/26/2023 4:06 AM EDT) Pathologist [facility] Magnesium 0.96 0.69 - 1.07 mmol/L [facility] Blood 06/26/2023 4:06 AM EDT 06/26/2023 4:18 AM EDT Narrative Resulting Agency Comment Spec In Lab Eufemia Copeland MD CHEMISTRY ORDERABL ES Performing Organization Address [facility] de Phone Number [facility] [place] [address] * Differential, Automated (06/25/2023 1:50 AM EDT) Neutrophil % 56.2 % [facility] Neutrophil Absolute 4.06 1.70 - 6.10 x10(3)/[facility] Lymph % 30.5 % [facility] Lymphocytes Abs 2.2 0.9 - 3.2 x10(3)/[facility] Monocyte % 8.7 % [facility] Monocyte Abs 0.6 0.3 - 0.9 x10(3)/[facility] Eos % 3.9 % [facility] Eosinophils Abs 0.3 0.0 - 0.4 x10(3)/[facility] Basophil % 0.6 % [facility] Baso Absolute 0.0 0.0 - 0.1 x10(3)/[facility] Immature Gran % 0.10 % [facility] [...] x10(3)/[facility] Blood 06/25/2023 1:50 AM EDT 06/25/2023 2:16 AM EDT Narrative Resulting Agency Comment Spec In Lab Terrence Keating MD HEMATOLOGY ORDERABLE S [facility] [place] [address] * Hemogram (06/25/2023 1:50 AM EDT) White Blood Cell 7.2 4.0 - 9.5 x10(3)/[facility] Red Blood Cell 4.57 4.00 - 5.21 x10(6)/[facility] Hemoglobin 14.4 11.7 - 15.5 g/dL [facility] Hematocrit 42.9 35.7 - 45.8 % [facility] Mean Cell Volume 93.9 82.6 - 94.4 fL [facility] Mean Cell Hemoglobin 31.5 27.1 - 32.0 pg [facility] Mean Cell Hemoglobin Concentration 33.6 31.7 - 35.0 g/dL [facility] Platelet 241 145 - 357 x10(3)/[facility] RDW Standard Deviation 44.7 37.0 - 46.0 fL [facility] RDW coefficient of variation 13.2 11.5 - 14.1 % [facility] Mean Platelet Volume 11.5 7.6 - 12.9 fL [facility] NRBC% auto 0.0 % [facility] NRBC Absolute 0.000 0.000 - 0.000 x10(3)/mcL [facility] Blood 06/25/2023 1:50 AM EDT 06/25/2023 2:16 AM EDT Narrative Resulting Agency Comment Spec In Lab Terrence Keating MD HEMATOLOGY ORDERABLE S [facility] [place] [address] * (ABNORMAL) Basic Metabolic Panel (non-fasting) (06/25/2023 1:50 AM EDT) Glucose 99 65 - 199 mg/dL [facility] [...] mmol/L [facility] Carbon Dioxide 25 22 - 31 mmol/L [facility] Anion Gap 12 5 - 15 mmol/L [facility] Calcium 9.4 8.5 - 10.5 mg/dL [facility] Est Glomerular Filtration Rate 38(L) >=60 mL/min/1. 73 m?? [facility] [...] MD CHEMISTRY ORDERABL ES Performing Organization Address City/[facility] Hospital/ZIP Co de Phone Number [facility] [place] [address] * Phosphorus (06/25/2023 1:50 AM EDT) Phosphorus 4.4 2.5 - 4.5 mg/dL [facility] Blood 06/25/2023 1:50 AM EDT 06/25/2023 2:16 AM EDT Narrative Resulting Agency Comment Spec In Lab Eufemia Copeland MD CHEMISTRY ORDERABL ES Performing Organization Address [facility] Co de Phone Number [facility] [place] [address] * Magnesium (06/25/2023 1:50 AM EDT) Magnesium 0.99 0.69 - 1.07 mmol/L [facility] Blood 06/25/2023 1:50 AM EDT 06/25/2023 2:16 AM EDT Narrative Resulting Agency Comment Spec In Lab Eufemia Copeland MD CHEMISTRY ORDERABL ES Performing Organization Address City/[facility] Co de Phone Number [facility] [place] [address] * (ABNORMAL) pro-Brain Natriuretic Peptide (06/24/2023 3:38 AM EDT) NT-proBNP 1,239(H) <=124 pg/mL [facility] Blood Venous Draw / Unknown 06/24/2023 3:38 AM EDT 06/24/2023 3:49 AM EDT Narrative Resulting Agency Comment Spec In Lab Ailyn Irvin MD CHEMISTRY ORDERABLES [facility] [place] [address] * Differential, Automated (06/24/2023 3:38 AM EDT) Neutrophil % 51.6 % [facility] Neutrophil Absolute 3.54 1.70 - 6.10 x10(3)/[facility] Lymph % 36.0 % [facility] Lymphocytes Abs 2.5 0.9 - 3.2 x10(3)/[facility] Monocyte % 7.8 % [facility] Monocyte Abs 0.5 0.3 - 0.9 x10(3)/[facility] Eos % 3.6 % [facility] Eosinophils Abs 0.2 0.0 - 0.4 x10(3)/[facility] Basophil % 0.7 % [facility] Baso Absolute 0.0 0.0 - 0.1 x10(3)/[facility] Immature Gran % 0.30 % [facility] [...] x10(3)/[facility] Blood 06/24/2023 3:38 AM EDT 06/24/2023 3:49 AM EDT Narrative Resulting Agency Comment Spec In Lab Terrence Keating MD HEMATOLOGY ORDERABLE S [facility] [place] [address] * Hemogram (06/24/2023 3:38 AM EDT) [facility] White Blood Cell 6.9 4.0 - 9.5 x10(3)/[facility] Red Blood Cell 4.36 4.00 - 5.21 x10(6)/[facility] Hemoglobin 13.6 11.7 - 15.5 g/dL [facility] Hematocrit 40.7 35.7 - 45.8 % [facility] Mean Cell Volume 93.3 82.6 - 94.4 fL [facility] Mean Cell Hemoglobin 31.2 27.1 - 32.0 pg [facility] Mean Cell Hemoglobin Concentration 33.4 31.7 - 35.0 g/dL [facility] Platelet 220 145 - 357 x10(3)/[facility] RDW Standard Deviation 44.5 37.0 - 46.0 [facility] LABORATORY RDW coefficient of variation 13.0 11.5 - 14.1 % [facility] Mean Platelet Volume 10.8 7.6 - 12.9 fL [facility] NRBC% auto 0.0 % [facility] NRBC Absolute 0.000 0.000 - 0.000 x10(3)/[facility] Blood 06/24/2023 3:38 AM EDT 06/24/2023 3:49 AM EDT Narrative Resulting Agency Comment Spec In Lab Terrence Keating MD HEMATOLOGY ORDERABLE S [facility] [place] [address] * Heparin (unfractionated) Level (06/24/2023 3:38 AM EDT) Pathologist [facility] UF Heparin 0.44 IU/mL [facility] Comment: Heparin (anti-Xa) [...] HEMATOLOGY ORDERABLE S [facility] [place] [address] * (ABNORMAL) Basic Metabolic Panel (non-fasting) (06/24/2023 3:38 AM EDT) Glucose 96 65 - 199 mg/dL [facility] [...] mmol/L [facility] Carbon Dioxide 21(L) 22 - 31 mmol/L [facility] Anion Gap 13 5 - 15 mmol/L [facility] Calcium 9.1 8.5 - 10.5 mg/dL [facility] Est Glomerular Filtration Rate 57(L) >=60 mL/min/1. 73 m?? [facility] [...] MD CHEMISTRY ORDERABL ES Performing Organization Address [facility] Co de Phone Number [facility] [place] [address] * Phosphorus (06/24/2023 3:38 AM EDT) Phosphorus 4.1 2.5 - 4.5 mg/dL [facility] Blood 06/24/2023 3:38 AM EDT 06/24/2023 3:49 AM EDT Narrative Resulting Agency Comment Spec In Lab Eufemia Copeland MD CHEMISTRY ORDERABL ES [facility] [place] [address] * Magnesium (06/24/2023 3:38 AM EDT) Magnesium 0.96 0.69 - 1.07 mmol/L [facility] Blood 06/24/2023 3:38 AM EDT 06/24/2023 3:49 AM EDT Narrative Resulting Agency Comment Spec In Lab Eufemia Copeland MD CHEMISTRY ORDERABL ES Performing Organization Address [facility]/ZIP Co de Phone Number [facility] [place] [address] * Heparin (unfractionated) Level (06/23/2023 9:24 PM EDT) UF Heparin 0.51 IU/mL [facility] Comment: Heparin (anti-Xa) [...] MD HEMATOLOGY ORDERABLE S Performing Organization Address [facility]/ZIP Co de Phone Number [facility] [place] [address] * Duplex Study Visceral Arteries, Comp (06/23/2023 3:36 PM EDT) VB Text Report Department: Vascular Surgery Lab Patient: [id number] (LOIDA ROQUE) CPT: 89567 Referring Physician: AILYN IRVIN ?? Phone: Indications: [...] 3:01 PM EDT) UF Heparin 0.90 IU/mL [facility] Comment: Heparin (anti-Xa) [...] MD HEMATOLOGY ORDERABLE S Performing Organization Address [facility] Co de Phone Number [facility] [place] [address] * EKG 12 Lead (06/23/2023 9:54 AM EDT) Ventricular rate 48 BPM MUSE SYSTEM Atrial Rate 48 BPM MUSE SYSTEM P-R Interval 192 ms MUSE SYSTEM QRS Duration 92 ms MUSE SYSTEM Q-T Interval 462 ms MUSE SYSTEM QTC Calculated (Bezet) 412 ms MUSE SYSTEM Calculated P [place] 21 degrees MUSE SYSTEM Calculated R [place] 20 degrees MUSE SYSTEM Calculated T [place] 16 degrees MUSE SYSTEM INTERPRETATION Sinus bradycardia Nonspecific ST and T wave abnormality Abnormal ECG When compared with ECG of 22-JUN-2023 11:13, Criteria for Septal infarct are no longer Present No significant change was found Confirmed by MD [place], Gus ([id number]) on 06/23/2023 12:59:50 PM MUSE SYSTEM 06/23/2023 9:54 AM EDT 06/23/2023 12:59 PM EDT Ailyn Irvin MD ECG ORDERABLES Performing Organization Address [facility] Co de Phone Number MUSE SYSTEM * Differential, Automated (06/23/2023 4:12 AM EDT) Neutrophil % 52.8 % [facility] Neutrophil Absolute 4.30 1.70 - 6.10 x10(3)/[facility] Lymph % 33.9 % [facility] Lymphocytes Abs 2.8 0.9 - 3.2 x10(3)/[facility] Monocyte % 8.3 % [facility] Monocyte Abs 0.7 0.3 - 0.9 x10(3)/[facility] Eos % 3.9 % [facility] Eosinophils Abs 0.3 0.0 - 0.4 x10(3)/[facility] Basophil % 0.7 % [facility] Baso Absolute 0.1 0.0 - 0.1 x10(3)/[facility] Immature Gran % 0.40 % [facility] [...] x10(3)/[facility] Blood 06/23/2023 4:12 AM EDT 06/23/2023 4:38 AM EDT Narrative Resulting Agency Comment Spec In Lab Terrence Keating MD HEMATOLOGY ORDERABLE S [facility] [place] [address] * Hemogram (06/23/2023 4:12 AM EDT) White Blood Cell 8.2 4.0 - 9.5 x10(3)/[facility] Red Blood Cell 4.59 4.00 - 5.21 x10(6)/[facility] Hemoglobin 14.3 11.7 - 15.5 g/dL [facility] Hematocrit 43.1 35.7 - 45.8 % [facility] Mean Cell Volume 93.9 82.6 - 94.4 fL [facility] Mean Cell Hemoglobin 31.2 27.1 - 32.0 pg [facility] Mean Cell Hemoglobin Concentration 33.2 31.7 - 35.0 g/dL [facility] Platelet 233 145 - 357 x10(3)/[facility] RDW Standard Deviation 44.2 37.0 - 46.0 fL [facility] RDW coefficient of variation 13.0 11.5 - 14.1 % [facility] Mean Platelet Volume 11.3 7.6 - 12.9 fL [facility] NRBC% auto 0.0 % [facility] NRBC Absolute 0.000 0.000 - 0.000 x10(3)/[facility] Blood 06/23/2023 4:12 AM EDT 06/23/2023 4:38 AM EDT Narrative Resulting Agency Comment Spec In Lab Terrence Keating MD HEMATOLOGY ORDERABLE S [facility] [place] [address] * (ABNORMAL) Heparin (unfractionated) Level (06/23/2023 4:12 AM EDT) UF Heparin 1.95(Crit ical) IU/mL [facility] [...] HEMATOLOGY ORDERABLE S [facility] [place] [address] * (ABNORMAL) Basic Metabolic Panel (non-fasting) (06/23/2023 4:12 AM EDT) Glucose 87 65 - 199 mg/dL [facility] Comment:Diabetes: >=200 mg/d L plus symptoms Blood Urea Nitrogen 23(H) 8 - 18 mg/dL [facility] [...] mmol/L [facility] Carbon Dioxide 22 22 - 31 mmol/L [facility] Anion Gap 12 5 - 15 mmol/L [facility] Calcium 9.3 8.5 - 10.5 mg/dL [facility] Est Glomerular Filtration Rate 61 >=60 mL/min/1. 73 m?? [facility] [...] MD CHEMISTRY ORDERABL ES Performing Organization Address [facility] Co de Phone Number [facility] [place] [address] * Phosphorus (06/23/2023 4:12 AM EDT) Phosphorus 4.5 2.5 - 4.5 mg/dL [facility] Blood 06/23/2023 4:12 AM EDT 06/23/2023 4:38 AM EDT Narrative Resulting Agency Comment Spec In Lab Eufemia Copeland MD CHEMISTRY ORDERABL ES Performing Organization Address [facility] Co de Phone Number [facility] [place] [address] * Magnesium (06/23/2023 4:12 AM EDT) Magnesium 1.03 0.69 - 1.07 mmol/L [facility] Blood 06/23/2023 4:12 AM EDT 06/23/2023 4:38 AM EDT Narrative Resulting Agency Comment Spec In Lab Eufemia Copeland MD CHEMISTRY ORDERABL ES Performing Organization Address [facility] Co de Phone Number [facility] [place] [address] * ECHO LMTD W CONTRAST W LMTD SPEC DOPP COLOR DOPP (06/22/2023 4:25 PM EDT) Anatomical Region Laterality Modality Cardiac Other 06/22/2023 2:49 PM EDT Narrative 06/22/2023 4:42 PM EDT 1 [place] [address] ? Echocardiogram Report Name: LOIDA ROQUE ?Study Date: 06/22/2023 02:49 PM ?Patient Location: [id number] A ??HR: 57 : 1970 ?Height: 162 cm ? Account: [id number] Age: 53 yrs ?Weight: 102 kg Gender: [...] slight decrease in LV systolic function. Procedure Complete-33514. Satisfactory quality. There is normal sinus rhythm. [...] Note Jose Gallegos MD - 06/22/2023 1 [place] [id number] Echocardiogram Report Name: LOIDA ROQUE Study Date: 06/22/2023 02:49 PM Patient Location: [place] [address] A HR:57 : 1970 Height: 162 cmAccount: [id number] Age: 53 yrs Weight: 102 kg Gender: [...] a slightdecrease in LV systolic function. Procedure Complete-13262. Satisfactory quality. There is normal sinus rhythm. [...] cm/sec E/e' (med): 14.6 E/e' Average: 14.6 MEFSIN(I,D): 1.3 cm2 Dimensionless index Aov: 0.79 MR [...] * (ABNORMAL) Troponin (06/22/2023 2:38 PM EDT) [facility] Troponin-T, High Sensitivity 22(H) <=14 ng/L [facility] Comment: [...] in the [facility] Laboratory Test Catalog Troponin - [facility] Laboratory Test Catalog Reference: [place] Definition of Myocardial Infarction. Journal of the [place] [employer] 2018;72:8401-3171 Blood 06/22/2023 2:38 PM EDT 06/22/2023 2:50 PM EDT Narrative Resulting Agency Comment Spec In Lab Ailyn Irvin MD CHEMISTRY ORDERABLES [facility] [place] [address] * Duplex for DVT, Arm, Unilat (06/22/2023 2:24 PM EDT) VB Text Report Department: Vascular Surgery Lab Patient: [id number] (LOIDA ROQUE) CPT: [id number] Referring Physician: AILYN IRVIN ?? Phone: Indications: [...] questions please contact the health child care center assistant director that requested your imaging first. ? Electronically signed by: Itz Hayward MD, [facility] ??([phone]), at 06/22/2023 11:47 AM Narrative 06/22/2023 11:47 [...] have questions please contactthe health child care center assistant director that requested your imaging first. Electronically signed by: Itz Hayward MD, [facility]([phone]), at 06/22/2023 11:47 AM Ailyn Irvin MD IMG DX ORDERABLES * (ABNORMAL) Troponin (06/22/2023 11:24 AM EDT) [facility] Troponin-T, High Sensitivity 22(H) <=14 ng/L [facility] Comment: [...] in the [facility] Laboratory Test Catalog Troponin - [facility] Laboratory Test Catalog Reference: [place] Definition of Myocardial Infarction. Journal of the [place] [employer] 2018;72:8564-6539 Blood 06/22/2023 11:2 4 AM EDT 06/22/2023 11:44 AM EDT Narrative Resulting Agency Comment Spec In Lab Ailyn Irvin MD CHEMISTRY ORDERABLES [facility] [place] [address] * EKG 12 Lead (06/22/2023 11:13 AM EDT) Ventricular rate 63 BPM MUSE SYSTEM Atrial Rate 63 BPM MUSE SYSTEM P-R Interval 162 ms MUSE SYSTEM QRS Duration 86 ms MUSE SYSTEM Q-T Interval 382 ms MUSE SYSTEM QTC Calculated (Bezet) 390 ms MUSE SYSTEM Calculated P [place] 24 degrees MUSE SYSTEM Calculated R [place] 32 degrees MUSE SYSTEM Calculated T [place] -2 degrees MUSE SYSTEM INTERPRETATION Normal sinus rhythm Septal infarct (cited on or before 22-JUN-2023) Possible Lateral infarct , age undetermined ST & T wave abnormality, consider inferolateral ischemia Abnormal ECG When compared with ECG of 22-JUN-2023 10:55, No significant change was found Confirmed by MD Angelo Danette ([id number]) on 06/22/2023 3:56:31 PM MUSE SYSTEM 06/22/2023 11:1 3 AM EDT 06/22/2023 3:56 PM EDT Ailyn Irvin MD ECG ORDERABLES Performing Organization Address [facility] de Phone Number MUSE SYSTEM * EKG 12 Lead (06/22/2023 10:55 AM EDT) Ventricular rate 56 BPM MUSE SYSTEM Atrial Rate 56 BPM MUSE SYSTEM P-R Interval 168 ms MUSE SYSTEM QRS Duration 88 ms MUSE SYSTEM Q-T Interval 426 ms MUSE SYSTEM QTC Calculated (Bezet) 411 ms MUSE SYSTEM Calculated P [place] 22 degrees MUSE SYSTEM Calculated R [place] 20 degrees MUSE SYSTEM Calculated T [place] 10 degrees MUSE SYSTEM INTERPRETATION Sinus bradycardia Septal infarct , age undetermined ST & T wave abnormality, consider inferolateral ischemia Abnormal ECG When compared with ECG of 21-JUN-2023 10:06, Septal infarct is now Present Confirmed by MD Angelo Danette ([id number]) on 06/22/2023 3:55:53 PM MUSE SYSTEM 06/22/2023 10:5 5 AM EDT 06/22/2023 3:55 PM EDT Ailyn Irvin MD ECG ORDERABLES Performing Organization Address [facility] Phone Number MUSE SYSTEM * Differential, Automated (06/22/2023 4:34 AM EDT) Neutrophil % 54.4 % [facility] Neutrophil Absolute 4.07 1.70 - 6.10 x10(3)/[facility] Lymph % 30.6 % [facility] Lymphocytes Abs 2.3 0.9 - 3.2 x10(3)/[facility] Monocyte % 9.9 % [facility] Monocyte Abs 0.7 0.3 - 0.9 x10(3)/[facility] Eos % 4.3 % [facility] Eosinophils Abs 0.3 0.0 - 0.4 x10(3)/[facility] Basophil % 0.7 % [facility] Baso Absolute 0.0 0.0 - 0.1 x10(3)/[facility] Immature Gran % 0.10 % [facility] [...] x10(3)/[facility] Blood 06/22/2023 4:34 AM EDT 06/22/2023 4:42 AM EDT Narrative Resulting Agency Comment Spec In Lab Terrence Keating MD HEMATOLOGY ORDERABLE S [facility] [place] [address] * (ABNORMAL) Hemogram (06/22/2023 4:34 AM EDT) White Blood Cell 7.5 4.0 - 9.5 x10(3)/mc L [facility] Red Blood Cell 4.04 4.00 - 5.21 x10(6)/mc L [facility] Hemoglobin 12.8 11.7 - 15.5 g/dL [facility] Hematocrit 39.1 35.7 - 45.8 % [facility] Mean Cell Volume 96.8(H) 82.6 - 94.4 fL [facility] Mean Cell Hemoglobin 31.7 27.1 - 32.0 pg [facility] Mean Cell Hemoglobin Concentration 32.7 31.7 - 35.0 g/dL [facility] Platelet 225 145 - 357 x10(3)/mc L [facility] RDW Standard Deviation 45.9 37.0 - 46.0 [facility] RDW coefficient of variation 13.0 11.5 - 14.1 % [facility] Mean Platelet Volume 10.6 7.6 - 12.9 [facility] NRBC% auto 0.0 % [facility] NRBC Absolute 0.000 0.000 - 0.000 x10(3)/mc L [facility] Blood 06/22/2023 4:34 AM EDT 06/22/2023 4:42 AM EDT Narrative Resulting Agency Comment Spec In Lab Terrence Keating MD HEMATOLOGY ORDERABLE S [facility] [place] [address] * (ABNORMAL) Basic Metabolic Panel (non-fasting) (06/22/2023 4:34 AM EDT) Glucose 94 65 - 199 mg/dL [facility] Comment:Diabetes: >=200 mg/d L plus symptoms Blood Urea Nitrogen 22(H) 8 - 18 mg/dL [facility] Est Glomerular Filtration Rate 54(L) >=60 mL/min/1. 73 m?? [facility] [...] CHEMISTRY ORDERABL ES [facility] [place] [address] * (ABNORMAL) Phosphorus (06/22/2023 4:34 AM EDT) Phosphorus 4.9(H) 2.5 - 4.5 mg/dL [facility] Blood 06/22/2023 4:34 AM EDT 06/22/2023 4:42 AM EDT Narrative Resulting Agency Comment Spec In Lab Eufemia Copeland MD CHEMISTRY ORDERABL ES [facility] [place] [address] * Magnesium (06/22/2023 4:34 AM EDT) Magnesium 1.02 0.69 - 1.07 mmol/L [facility] Blood 06/22/2023 4:34 AM EDT 06/22/2023 4:42 AM EDT Narrative Resulting Agency Comment Spec In Lab Eufemia Copeland MD CHEMISTRY ORDERABL ES [facility] [place] [address] * CT Abdomen & Pelvis w Contrast [...] questions please contact the health child care center assistant director that requested your imaging first. ? [...] have questions please contactthe health child care center assistant director that requested your imaging first. Electronically signed by: RONDA DUFFY MD, [facility]([phone]), at 06/22/2023 7:59 AM Eufemia Copeland MD IMG CT ORDERABLES * EKG 12 Lead (06/21/2023 10:06 AM EDT) Pathologist [facility] Ventricular rate 51 BPM MUSE SYSTEM Atrial Rate 51 BPM MUSE SYSTEM P-R Interval 176 ms MUSE SYSTEM QRS Duration 92 ms MUSE SYSTEM Q-T Interval 450 ms MUSE SYSTEM QTC Calculated (Bezet) 414 ms MUSE SYSTEM Calculated P [place] 17 degrees MUSE SYSTEM Calculated R [place] 35 degrees MUSE SYSTEM Calculated T [place] 13 degrees MUSE SYSTEM INTERPRETATION Sinus bradycardia [...] (ABNORMAL) Troponin (06/21/2023 9:45 AM EDT) Pathologist [facility] Troponin-T, High Sensitivity 22(H) <=14 ng/L [facility] Comment: [...] in the [facility] Laboratory Test Catalog Troponin - [facility] Laboratory Test Catalog Reference: [place] Definition of Myocardial Infarction. Journal of the [place] [employer] 2018;72:7158-4537 Blood 06/21/2023 9:45 AM EDT 06/21/2023 10:08 AM EDT Narrative Resulting Agency Comment Spec In Lab Eufemia Copeland MD CHEMISTRY ORDERABL ES Performing Organization Address [facility]/ZIP Co de Phone Number [facility] [place] [address] * (ABNORMAL) pro-Brain Natriuretic Peptide (06/21/2023 5:58 AM EDT) NT-proBNP 1,370(H) <=124 pg/mL [facility] Blood Venous Draw / Unknown 06/21/2023 5:58 AM EDT 06/21/2023 7:28 AM EDT Narrative Resulting Agency Comment Spec In Lab Eufemia Copeland MD CHEMISTRY ORDERABL ES Performing Organization Address [facility]/ZIP Co de Phone Number [facility] [place] [address] * Potassium (06/21/2023 5:58 AM EDT) Potassium [...] CHEMISTRY ORDERABL ES [facility] [place] [address] * Differential, Automated (06/21/2023 3:25 AM EDT) Neutrophil % 54.0 % [facility] Neutrophil Absolute 5.02 1.70 - 6.10 x10(3)/[facility] Lymph % 31.8 % [facility] Lymphocytes Abs 3.0 0.9 - 3.2 x10(3)/[facility] Monocyte % 8.9 % [facility] Monocyte Abs 0.8 0.3 - 0.9 x10(3)/[facility] Eos % 4.2 % [facility] Eosinophils Abs 0.4 0.0 - 0.4 x10(3)/[facility] Basophil % 0.8 % [facility] Baso Absolute 0.1 0.0 - 0.1 x10(3)/[facility] Immature Gran % 0.30 % [facility] [...] x10(3)/[facility] Blood 06/21/2023 3:25 AM EDT 06/21/2023 3:45 AM EDT Narrative Resulting Agency Comment Spec In Lab Terrence Keating MD HEMATOLOGY ORDERABLE S [facility] [place] [address] * Hemogram (06/21/2023 3:25 AM EDT) White Blood Cell 9.3 4.0 - 9.5 x10(3)/[facility] Red Blood Cell 4.74 4.00 - 5.21 x10(6)/[facility] Hemoglobin 14.9 11.7 - 15.5 g/dL [facility] Hematocrit 44.2 35.7 - 45.8 % [facility] Mean Cell Volume 93.2 82.6 - 94.4 fL [facility] Mean Cell Hemoglobin 31.4 27.1 - 32.0 pg [facility] Mean Cell Hemoglobin Concentration 33.7 31.7 - 35.0 g/dL [facility] Platelet 279 145 - 357 x10(3)/[facility] RDW Standard Deviation 44.7 37.0 - 46.0 [facility] RDW coefficient of variation 13.1 11.5 - 14.1 % [facility] Mean Platelet Volume 11.1 7.6 - 12.9 fL [facility] NRBC% auto 0.0 % [facility] NRBC Absolute 0.000 0.000 - 0.000 x10(3)/[facility] Blood 06/21/2023 3:25 AM EDT 06/21/2023 3:45 AM EDT Narrative Resulting Agency Comment Spec In Lab Terrence Keating MD HEMATOLOGY ORDERABLE S [facility] [place] [address] * (ABNORMAL) Basic Metabolic Panel (non-fasting) (06/21/2023 3:25 AM EDT) Glucose 95 65 - 199 mg/dL [facility] Comment:Diabetes: >=200 mg/d L plus symptoms Blood Urea Nitrogen 27(H) 8 - 18 mg/dL [facility] [...] mmol/L [facility] Carbon Dioxide 26 22 - 31 mmol/L [facility] Anion Gap 12 5 - 15 mmol/L [facility] Calcium 9.7 8.5 - 10.5 mg/dL [facility] Est Glomerular Filtration Rate 59(L) >=60 mL/min/1. 73 m?? [facility] [...] MD CHEMISTRY ORDERABL ES Performing Organization Address [facility]/ZIP Co de Phone Number [facility] [place] [address] * (ABNORMAL) Phosphorus (06/21/2023 3:25 AM EDT) [facility] Phosphorus 5.1(H) 2.5 - 4.5 mg/dL [facility] Blood 06/21/2023 3:25 AM EDT 06/21/2023 3:45 AM EDT Narrative Resulting Agency Comment Spec In Lab Eufemia Copeland MD CHEMISTRY ORDERABL ES Performing Organization Address [facility] Co de Phone Number [facility] [place] [address] * Magnesium (06/21/2023 3:25 AM EDT) [facility] Magnesium 1.04 0.69 - 1.07 mmol/L [facility] Blood 06/21/2023 3:25 AM EDT 06/21/2023 3:45 AM EDT Narrative Resulting Agency Comment Spec In Lab Eufemia Copeland MD CHEMISTRY ORDERABL ES Performing Organization Address [facility] Co de Phone Number [facility] [place] [address] * (ABNORMAL) Differential, Automated (06/20/2023 3:32 AM EDT) [facility] Neutrophil % 52.5 % [facility] Neutrophil Absolute 5.28 1.70 - 6.10 x10(3)/mc L [facility] Lymph % 32.4 % [facility] Lymphocytes Abs 3.3(H) 0.9 - 3.2 x10(3)/mc L [facility] Monocyte % 9.7 % [facility] Monocyte Abs 1.0(H) 0.3 - 0.9 x10(3)/mc L [facility] Eos % 4.3 % [facility] Eosinophils Abs 0.4 0.0 - 0.4 x10(3)/[facility]ORATORY Basophil % 0.7 % [facility] Baso Absolute 0.1 0.0 - 0.1 x10(3)/ L [facility] Immature Gran [...] Immature Gran Absolute 0.04 0.00 - 0.04 x10(3)/[facility] Blood 06/20/2023 3:32 AM EDT 06/20/2023 3:47 AM EDT Narrative Resulting Agency Comment Spec In Lab Terrence Keating MD HEMATOLOGY ORDERABLE S [facility] [place] [address] * (ABNORMAL) Hemogram (06/20/2023 3:32 AM EDT) White Blood Cell 10.1(H) 4.0 - 9.5 x10(3)/ L [facility] Red Blood Cell 4.57 4.00 - 5.21 x10(6)/ L [facility] Hemoglobin 14.2 11.7 - 15.5 g/dL [facility] Hematocrit 41.5 35.7 - 45.8 % [facility] Mean Cell Volume 90.8 82.6 - 94.4 fL [facility] Mean Cell Hemoglobin 31.1 27.1 - 32.0 pg [facility] Mean Cell Hemoglobin Concentration 34.2 31.7 - 35.0 g/dL [facility] Platelet 253 145 - 357 x10(3)/mc L [facility] RDW Standard Deviation 43.7 37.0 - 46.0 fL [facility] RDW coefficient of variation 13.2 11.5 - 14.1 % [facility] Mean Platelet Volume 10.8 7.6 - 12.9 fL [facility] NRBC% auto 0.0 % [facility] NRBC Absolute 0.000 0.000 - 0.000 x10(3)/mc L [facility] Blood 06/20/2023 3:32 AM EDT 06/20/2023 3:47 AM EDT Narrative Resulting Agency Comment Spec In Lab Terrence Keating MD HEMATOLOGY ORDERABLE S [facility] [place] [address] * (ABNORMAL) Basic Metabolic Panel (non-fasting) (06/20/2023 3:32 AM EDT) Glucose 99 65 - 199 mg/dL [facility] Comment:Diabetes: >=200 mg/d L plus symptoms Blood Urea Nitrogen 26(H) 8 - 18 mg/dL [facility] [...] mmol/L [facility] Carbon Dioxide 22 22 - 31 mmol/L [facility] Anion Gap 13 5 - 15 mmol/L [facility] Calcium 9.4 8.5 - 10.5 mg/dL [facility] Est Glomerular Filtration Rate 58(L) >=60 mL/min/1. 73 m?? [facility] [...] MD CHEMISTRY ORDERABL ES Performing Organization Address [facility] Co de Phone Number [facility] [place] [address] * Phosphorus (06/20/2023 3:32 AM EDT) Phosphorus 4.3 2.5 - 4.5 mg/dL [facility] Blood 06/20/2023 3:32 AM EDT 06/20/2023 3:47 AM EDT Narrative Resulting Agency Comment Spec In Lab Eufemia Copeland MD CHEMISTRY ORDERABL ES Performing Organization Address [facility]/ZIP Co de Phone Number [facility] [place] [address] * Magnesium (06/20/2023 3:32 AM EDT) Magnesium 1.00 0.69 - 1.07 mmol/L [facility] Blood 06/20/2023 3:32 AM EDT 06/20/2023 3:47 AM EDT Narrative Resulting Agency Comment Spec In Lab Eufemia Copeland MD CHEMISTRY ORDERABL ES Performing Organization Address [facility]/ZIP Co de Phone Number [facility] [place] [address] * Phosphorus (06/19/2023 5:26 PM EDT) Pathologist [facility] Phosphorus 4.0 2.5 - 4.5 mg/dL [facility] Blood 06/19/2023 5:26 PM EDT 06/19/2023 5:32 PM EDT Narrative Resulting Agency Comment Spec In Lab Eufemia Copeland MD CHEMISTRY ORDERABL ES Performing Organization Address [facility] Co de Phone Number [facility] [place] [address] * Magnesium (06/19/2023 5:26 PM EDT) [facility] Magnesium 0.98 0.69 - 1.07 mmol/L [facility] Blood 06/19/2023 5:26 PM EDT 06/19/2023 5:32 PM EDT Narrative Resulting Agency Comment Spec In Lab Eufemia Copeland MD CHEMISTRY ORDERABL ES Performing Organization Address [facility] Co de Phone Number [facility] [place] [address] * (ABNORMAL) Basic Metabolic Panel (non-fasting) (06/19/2023 5:26 PM EDT) Pathologist [facility] Glucose 105 65 - 199 mg/dL [facility] [...] mmol/L [facility] Carbon Dioxide 22 22 - 31 mmol/L [facility] Anion Gap 14 5 - 15 mmol/L [facility] Calcium 9.5 8.5 - 10.5 mg/dL [facility] Est Glomerular Filtration Rate 62 >=60 mL/min/1. 73 m?? [facility] [...] CHEMISTRY ORDERABL ES [facility] [place] [address] * EKG 12 Lead (06/19/2023 4:24 AM EDT) Ventricular rate 66 BPM MUSE SYSTEM Atrial Rate 66 BPM MUSE SYSTEM P-R Interval 188 ms MUSE SYSTEM QRS Duration 92 ms MUSE SYSTEM Q-T Interval 484 ms MUSE SYSTEM QTC Calculated (Bezet) 507 ms MUSE SYSTEM Calculated P [place] 32 degrees MUSE SYSTEM Calculated R [place] 22 degrees MUSE SYSTEM Calculated T [place] 47 degrees MUSE SYSTEM INTERPRETATION Normal sinus [...] EDT) Glucose 101 65 - 199 mg/dL [facility] Comment:Diabetes: >=200 mg/d L plus symptoms Blood Urea Nitrogen 24(H) 8 - 18 mg/dL [facility] [...] mmol/L [facility] Carbon Dioxide Not Perf 22 - 31 [facility] Comment:Add-on request. Samp le too old to perform test. Anion Gap Unable to Calculate 5 - 15 mmol/L [facility] Calcium 9.4 8.5 - 10.5 mg/dL [facility] Est Glomerular Filtration Rate 64 >=60 mL/min/1 .73 m?? [facility] [...] CHEMISTRY ORDERABL ES [facility] [place] [address] * Differential, Automated (06/19/2023 3:22 AM EDT) Neutrophil % 54.0 % [facility] Neutrophil Absolute 5.08 1.70 - 6.10 x10(3)/[facility] LABOR[facility] Lymph % 30.7 % [facility] Lymphocytes Abs 2.9 0.9 - 3.2 x10(3)/[facility] LABOR[facility]ORY Monocyte % 10.0 % [facility] Monocyte Abs 0.9 0.3 - 0.9 x10(3)/[facility] LABOR[facility]ORY Eos % 4.5 % [facility] Eosinophils Abs 0.4 0.0 - 0.4 x10(3)/[facility] LABORATORY Basophil % 0.6 % [facility] Baso Absolute 0.1 0.0 - 0.1 x10(3)/[facility] LABOR[facility]ORY Immature Gran % 0.20 % [facility] [...] x10(3)/[facility] Blood 06/19/2023 3:22 AM EDT 06/19/2023 3:47 AM EDT Narrative Resulting Agency Comment Spec In Lab Terrence Keating MD HEMATOLOGY ORDERABLE S [facility] [place] [address] * Hemogram (06/19/2023 3:22 AM EDT) [facility] White Blood Cell 9.4 4.0 - 9.5 x10(3)/[facility] LABOR[facility]ORY Red Blood Cell 4.48 4.00 - 5.21 x10(6)/[facility] LAB[facility]ORY Hemoglobin 13.9 11.7 - 15.5 g/dL [facility] Hematocrit 41.7 35.7 - 45.8 % [facility] Mean Cell Volume 93.1 82.6 - 94.4 fL [facility] Mean Cell Hemoglobin 31.0 27.1 - 32.0 pg [facility] Mean Cell Hemoglobin Concentration 33.3 31.7 - 35.0 g/dL [facility] Platelet 244 145 - 357 x10(3)/[facility] LABORATORY RDW Standard Deviation 44.2 37.0 - 46.0 [facility] LABORATORY RDW coefficient of variation 12.9 11.5 - 14.1 % [facility] Mean Platelet Volume 10.9 7.6 - 12.9 [facility] LABORATORY NRBC% auto 0.0 % [facility] NRBC Absolute 0.000 0.000 - 0.000 x10(3)/[facility] LAB[facility]ORY Blood 06/19/2023 3:22 AM EDT 06/19/2023 3:47 AM EDT Narrative Resulting Agency Comment Spec In Lab Terrence Kaeting MD HEMATOLOGY ORDERABLE S [facility] [place] [address] * Phosphorus (06/19/2023 3:22 AM EDT) Phosphorus 4.1 2.5 - 4.5 mg/dL [facility] Blood 06/19/2023 3:22 AM EDT 06/19/2023 3:47 AM EDT Narrative Resulting Agency Comment Spec In Lab Eufemia Copeland MD CHEMISTRY ORDERABL ES Performing Organization Address [facility]/ZIP Co de Phone Number [facility] [place] [address] * Magnesium (06/19/2023 3:22 AM EDT) Pathologist [facility] Magnesium 1.00 0.69 - 1.07 mmol/L [facility] Blood 06/19/2023 3:22 AM EDT 06/19/2023 3:47 AM EDT Narrative Resulting Agency Comment Spec In Lab Eufemia Copeland MD CHEMISTRY ORDERABL ES Performing Organization Address [facility] Co de Phone Number [facility] [place] [address] * (ABNORMAL) Basic Metabolic Panel (non-fasting) (06/18/2023 5:17 PM EDT) Pathologist [facility] Glucose 115 65 - 199 mg/dL [facility] Comment:Diabetes: >=200 mg/d L plus symptoms Blood Urea Nitrogen 22(H) 8 - 18 mg/dL [facility] [...] mmol/L [facility] Carbon Dioxide 22 22 - 31 mmol/L [facility] Anion Gap 14 5 - 15 mmol/L [facility] Calcium 9.6 8.5 - 10.5 mg/dL [facility] Est Glomerular Filtration Rate 58(L) >=60 mL/min/1. 73 m?? [facility] [...] CHEMISTRY ORDERABL ES [facility] [place] [address] * (ABNORMAL) Basic Metabolic Panel (non-fasting) (06/18/2023 4:19 AM EDT) Glucose 96 65 - 199 mg/dL [facility] Comment:Diabetes: >=200 mg/d L plus symptoms Blood Urea Nitrogen 22(H) 8 - 18 mg/dL [facility] [...] mmol/L [facility] Carbon Dioxide Not Perf - [facility] Comment:Add-on request. Flaca rodriguez too old to perform test. Anion Gap Unable to Calculate 5 - 15 mmol/L [facility] Calcium 9.5 8.5 - 10.5 mg/dL [facility] Est Glomerular Filtration Rate 73 >=60 mL/min/1 .73 m?? [facility] [...] CHEMISTRY ORDERABL ES [facility] [place] [address] * Differential, Automated (06/18/2023 4:19 AM EDT) Neutrophil % 54.1 % [facility] Neutrophil Absolute 4.52 1.70 - 6.10 x10(3)/[facility] LABORATORY Lymph % 31.0 % [facility] Lymphocytes Abs 2.6 0.9 - 3.2 x10(3)/[facility] LABORATORY Monocyte % 9.2 % [facility] Monocyte Abs 0.8 0.3 - 0.9 x10(3)/[facility] LABORATORY Eos % 4.9 % [facility] Eosinophils Abs 0.4 0.0 - 0.4 x10(3)/[facility] LABORATORY Basophil % 0.6 % [facility] Baso Absolute 0.0 0.0 - 0.1 x10(3)/[facility] LABORATORY Immature Gran % 0.20 % [facility] [...] x10(3)/[facility] LABOR[facility]ORY Blood 06/18/2023 4:19 AM EDT 06/18/2023 4:40 AM EDT Narrative Resulting Agency Comment Spec In Lab Terrence Keating MD HEMATOLOGY ORDERABLE S Performing Organization Address City/State/[facility] Co de Phone Number [facility] [place] [address] * Hemogram (06/18/2023 4:19 AM EDT) White Blood Cell 8.4 4.0 - 9.5 x10(3)/[facility] LABORATORY Red Blood Cell 4.70 4.00 - 5.21 x10(6)/[facility] LABOR[facility]ORY Hemoglobin 14.5 11.7 - 15.5 g/dL [facility] Hematocrit 42.8 35.7 - 45.8 % [facility] Mean Cell Volume 91.1 82.6 - 94.4 fL [facility] Mean Cell Hemoglobin 30.9 27.1 - 32.0 pg [facility] Mean Cell Hemoglobin Concentration 33.9 31.7 - 35.0 g/dL [facility] Platelet 258 145 - 357 x10(3)/[facility] LABORATORY RDW Standard Deviation 43.6 37.0 - 46.0 fL [facility] RDW coefficient of variation 13.0 11.5 - 14.1 % [facility] Mean Platelet Volume 10.7 7.6 - 12.9 [facility] LABORATORY NRBC% auto 0.0 % [facility] NRBC Absolute 0.000 0.000 - 0.000 x10(3)/mcL [facility] Blood 06/18/2023 4:19 AM EDT 06/18/2023 4:40 AM EDT Narrative Resulting Agency Comment Spec In Lab Terrence Keating MD HEMATOLOGY ORDERABLE S Performing Organization Address City/[facility]/ZIP Co de Phone Number [facility] [place] [address] * Phosphorus (06/18/2023 4:19 AM EDT) Phosphorus 3.7 2.5 - 4.5 mg/dL [facility] Blood 06/18/2023 4:19 AM EDT 06/18/2023 4:40 AM EDT Narrative Resulting Agency Comment Spec In Lab Eufemia Copeland MD CHEMISTRY ORDERABL ES Performing Organization Address [facility] Co de Phone Number [facility] [place] [address] * Magnesium (06/18/2023 4:19 AM EDT) Magnesium 1.02 0.69 - 1.07 mmol/L [facility] Blood 06/18/2023 4:19 AM EDT 06/18/2023 4:40 AM EDT Narrative Resulting Agency Comment Spec In Lab Eufemia Copeland MD CHEMISTRY ORDERABL ES Performing Organization Address [facility] Co de Phone Number [facility] [place] [address] * Phosphorus (06/17/2023 2:26 PM EDT) Phosphorus 2.8 2.5 - 4.5 mg/dL [facility] Blood 06/17/2023 2:26 PM EDT 06/17/2023 2:36 PM EDT Narrative Resulting Agency Comment Spec In Lab Eufemia Copeland MD CHEMISTRY ORDERABL ES Performing Organization Address [facility]/ZIP Co de Phone Number [facility] [place] [address] * Magnesium (06/17/2023 2:26 PM EDT) Magnesium 1.01 0.69 - 1.07 mmol/L [facility] Blood 06/17/2023 2:26 PM EDT 06/17/2023 2:36 PM EDT Narrative Resulting Agency Comment Spec In Lab Eufemia Copeland MD CHEMISTRY ORDERABL ES Performing Organization Address [facility]/ZIP Co de Phone Number [facility] [place] [address] * (ABNORMAL) Basic Metabolic Panel (non-fasting) (06/17/2023 2:26 PM EDT) Glucose 103 65 - 199 mg/dL [facility] [...] mmol/L [facility] Carbon Dioxide 24 22 - 31 mmol/L [facility] Anion Gap 14 5 - 15 mmol/L [facility] Calcium 9.6 8.5 - 10.5 mg/dL [facility] Est Glomerular Filtration Rate 62 >=60 mL/min/1. 73 m?? [facility] [...] CHEMISTRY ORDERABL ES [facility] [place] [address] * XR Abdomen Flat & Upright (06/17/2023 [...] questions please contact the health child care center assistant director that requested your imaging first. ? Electronically signed by: Wilton Cabrera MD, [facility] ([phone]), at 06/17/2023 5:30 PM Narrative 06/17/2023 5:30 PM EDT EXAMINATION: XR ABDOMEN FLAT AND UPRIGHT CLINICAL HISTORY: patient with foul odor from [facility]. hx hysterectomy, LLQ tenderness, constipation [...] CLINICAL HISTORY: patient with foul odor from [facility]. hx hysterectomy, LLQ tenderness, constipation [...] have questions please contactthe health child care center assistant director that requested your imaging first. Electronically signed by: Wilton Cabrera MD, [facility]([phone]), at 06/17/2023 5:30 PM Eufemia Copeland MD IMG DX ORDERABLES * (ABNORMAL) Basic Metabolic Panel (non-fasting) (06/17/2023 5:01 AM EDT) Glucose 100 65 - 199 mg/dL [facility] Comment:Diabetes: >=200 mg/d L plus symptoms Blood Urea Nitrogen 24(H) 8 - 18 mg/dL [facility] [...] mmol/L [facility] Carbon Dioxide 24 22 - 31 mmol/L [facility] Anion Gap 12 5 - 15 mmol/L [facility] Calcium 9.5 8.5 - 10.5 mg/dL [facility] Est Glomerular Filtration Rate 65 >=60 mL/min/1. 73 m?? [facility] [...] MD CHEMISTRY ORDERABLES [facility] [place] [address] * Differential, Automated (06/17/2023 1:11 AM EDT) Neutrophil % 54.5 % [facility] Neutrophil Absolute 5.20 1.70 - 6.10 x10(3)/[facility]L [facility] Lymph % 31.4 % [facility] Lymphocytes Abs 3.0 0.9 - 3.2 x10(3)/[facility] LABORATORY Monocyte % 9.8 % [facility] Monocyte Abs 0.9 0.3 - 0.9 x10(3)/[facility] LABORATORY Eos % 3.4 % [facility] Eosinophils Abs 0.3 0.0 - 0.4 x10(3)/[facility] LABORATORY Basophil % 0.5 % [facility] Baso Absolute 0.0 0.0 - 0.1 x10(3)/[facility] LABORATORY Immature Gran % 0.40 % [facility] Comment: Immature granulocytes(IG's)percentage and absolute count will include metamyelocytes, myelocytes, and promyelocytes. Blood smears from CBCs yielding IG's will be scanned manually for concordance. If this scan disagrees with the automated IG or if promyelocytes are noted, a manual differential will be performed. Immature Gran Absolute 0.04 0.00 - 0.04 x10(3)/[facility] LABORATORY Blood 06/17/2023 1:11 AM EDT 06/17/2023 1:16 AM EDT Narrative Resulting Agency Comment Spec In Lab Terrence Keating MD HEMATOLOGY ORDERABLE S [facility] [place] [address] * Hemogram (06/17/2023 1:11 AM EDT) White Blood Cell 9.5 4.0 - 9.5 x10(3)/[facility] LABORATORY Red Blood Cell 4.60 4.00 - 5.21 x10(6)/[facility] LAB[facility]ORY Hemoglobin 14.2 11.7 - 15.5 g/dL [facility] Hematocrit 43.0 35.7 - 45.8 % [facility] Mean Cell Volume 93.5 82.6 - 94.4 fL [facility] Mean Cell Hemoglobin 30.9 27.1 - 32.0 pg [facility] Mean Cell Hemoglobin Concentration 33.0 31.7 - 35.0 g/dL [facility] Platelet 256 145 - 357 x10(3)/[facility] LABORATORY RDW Standard Deviation 45.0 37.0 - 46.0 fL [facility] RDW coefficient of variation 13.2 11.5 - 14.1 % [facility] Mean Platelet Volume 10.9 7.6 - 12.9 fL [facility] NRBC% auto 0.0 % [facility] NRBC Absolute 0.000 0.000 - 0.000 x10(3)/[facility] LAB[facility]ORY Blood 06/17/2023 1:11 AM EDT 06/17/2023 1:16 AM EDT Narrative Resulting Agency Comment Spec In Lab Terrence Keating MD HEMATOLOGY ORDERABLE S Performing Organization Address City/[facility]/ZIP Co de Phone Number [facility] [place] [address] * Magnesium (06/17/2023 1:11 AM EDT) Magnesium 0.96 0.69 - 1.07 mmol/L [facility] Blood 06/17/2023 1:11 AM EDT 06/17/2023 1:16 AM EDT Narrative Resulting Agency Comment Spec In Lab Eufemia Copeland MD CHEMISTRY ORDERABL ES Performing Organization Address City/[facility]/ZIP Co de Phone Number [facility] [place] [address] * (ABNORMAL) Basic Metabolic Panel (non-fasting) (06/17/2023 1:11 AM EDT) Glucose 102 65 - 199 mg/dL [facility] Comment:Diabetes: >=200 mg/d L plus symptoms Blood Urea Nitrogen 24(H) 8 - 18 mg/dL [facility] [...] mmol/L [facility] Carbon Dioxide 24 22 - 31 mmol/L [facility] Anion Gap 13 5 - 15 mmol/L [facility] Calcium 9.2 8.5 - 10.5 mg/dL [facility] Est Glomerular Filtration Rate 61 >=60 mL/min/1. 73 m?? [facility] [...] MD CHEMISTRY ORDERABLES [facility] [place] [address] * (ABNORMAL) Basic Metabolic Panel (non-fasting) (06/16/2023 8:28 PM EDT) Pathologist [facility] Glucose 111 65 - 199 mg/dL [facility] Comment:Diabetes: >=200 mg/d L plus symptoms Blood Urea Nitrogen 23(H) 8 - 18 mg/dL [facility] [...] mmol/L [facility] Carbon Dioxide 26 22 - 31 mmol/L [facility] Anion Gap 12 5 - 15 mmol/L [facility] Calcium 9.3 8.5 - 10.5 mg/dL [facility] Est Glomerular Filtration Rate 53(L) >=60 mL/min/1. 73 m?? [facility] [...] CHEMISTRY ORDERABL ES [facility] [place] [address] * (ABNORMAL) Basic Metabolic Panel (non-fasting) (06/16/2023 2:29 PM EDT) Glucose 175 65 - 199 mg/dL [facility] Comment:Diabetes: >=200 mg/d L plus symptoms Blood Urea Nitrogen 25(H) 8 - 18 mg/dL [facility] [...] mmol/L [facility] Carbon Dioxide 26 22 - 31 mmol/L [facility] Anion Gap 13 5 - 15 mmol/L [facility] Calcium 9.3 8.5 - 10.5 mg/dL [facility] Est Glomerular Filtration Rate 50(L) >=60 mL/min/1. 73 m?? [facility] [...] CHEMISTRY ORDERABL ES [facility] [place] [address] * (ABNORMAL) Basic Metabolic Panel (non-fasting) (06/16/2023 9:01 AM EDT) Glucose 148 65 - 199 mg/dL [facility] Comment:Diabetes: >=200 mg/d L plus symptoms Blood Urea Nitrogen 27(H) 8 - 18 mg/dL [facility] Creatinine 1.27(H) 0.70 - 1.20 mg/dL [facility] Sodium 136 135 - 145 mmol/L [facility] Potassium 2.9(Criti edy) 3.5 - 5.0 mmol/L [facility] Comment: called by tmp /read back by (Malia Mcintyre)/ 06/16/23 @524 Please note: ??Patients with WBC >100,000 may have falsely elevated Potassium levels. ??For accurate Potassium quantification in these patients send serum separator tube (gold top) for subsequent determinations. ??Contact the Clinical Chemistry Laboratory if there are any questions. Chloride 91(L) 98 - 107 mmol/L [facility] Carbon Dioxide 32(H) 22 - 31 mmol/L [facility] Anion Gap 13 5 - 15 mmol/L [facility] Calcium 9.7 8.5 - 10.5 mg/dL [facility] Est Glomerular Filtration Rate 50(L) >=60 mL/min/1. 73 m?? [facility] [...] MD CHEMISTRY ORDERABL ES Performing Organization Address City/[facility]/ZIP Co de Phone Number [facility] [place] [address] * (ABNORMAL) Magnesium (06/16/2023 3:30 AM EDT) Pathologist [facility] Magnesium 1.09(H) 0.69 - 1.07 mmol/L [facility] Blood Venous Draw / Unknown 06/16/2023 3:30 AM EDT 06/16/2023 3:38 AM EDT Narrative Resulting Agency Comment Spec In Lab Eufemia Copeland MD CHEMISTRY ORDERABL ES Performing Organization Address City/[facility] Co de Phone Number [facility] [place] [address] * (ABNORMAL) Differential, Automated (06/16/2023 3:30 AM EDT) [facility] Neutrophil % 50.4 % [facility] Neutrophil Absolute 4.15 1.70 - 6.10 x10(3)/mc L [facility] Lymph % 33.7 % [facility] Lymphocytes Abs 2.8 0.9 - 3.2 x10(3)/mc L [facility] Monocyte % 11.8 % [facility] Monocyte Abs 1.0(H) 0.3 - 0.9 x10(3)/mc L [facility] Eos % 3.3 % [facility] Eosinophils Abs 0.3 0.0 - 0.4 x10(3)/mc L [facility] Basophil % 0.6 % [facility] Baso Absolute 0.0 0.0 - 0.1 x10(3)/mc L [facility] Immature Gran % 0.20 % [facility] Comment: Immature granulocytes(IG's)percentage and absolute count will include metamyelocytes, myelocytes, and promyelocytes. Blood smears from CBCs yielding IG's will be scanned manually for concordance. If this scan disagrees with the automated IG or if promyelocytes are noted, a manual differential will be performed. Immature Gran Absolute 0.02 0.00 - 0.04 x10(3)/mc L [facility] Blood 06/16/2023 3:30 AM EDT 06/16/2023 3:37 AM EDT Narrative Resulting Agency Comment Spec In Lab Terrence Keating MD HEMATOLOGY ORDERABLE S [facility] [place] [address] * Hemogram (06/16/2023 3:30 AM EDT) White Blood Cell 8.2 4.0 - 9.5 x10(3)/[facility] LABOR[facility] Red Blood Cell 4.69 4.00 - 5.21 x10(6)/[facility] LABORATORY Hemoglobin 14.5 11.7 - 15.5 g/dL [facility] Hematocrit 42.7 35.7 - 45.8 % [facility] Mean Cell Volume 91.0 82.6 - 94.4 fL [facility] Mean Cell Hemoglobin 30.9 27.1 - 32.0 pg [facility] Mean Cell Hemoglobin Concentration 34.0 31.7 - 35.0 g/dL [facility] Platelet 260 145 - 357 x10(3)/[facility] LABORATORY RDW Standard Deviation 43.5 37.0 - 46.0 fL [facility] RDW coefficient of variation 13.0 11.5 - 14.1 % [facility] Mean Platelet Volume 11.1 7.6 - 12.9 fL [facility] NRBC% auto 0.0 % [facility] NRBC Absolute 0.000 0.000 - 0.000 x10(3)/mcL [facility] Blood 06/16/2023 3:30 AM EDT 06/16/2023 3:37 AM EDT Narrative Resulting Agency Comment Spec In Lab Terrence Keating MD HEMATOLOGY ORDERABLE S [facility] [place] [address] * (ABNORMAL) Basic Metabolic Panel (non-fasting) (06/16/2023 3:30 AM EDT) Glucose 110 65 - 199 mg/dL [facility] Comment:Diabetes: >=200 mg/d L plus symptoms Blood Urea Nitrogen 28(H) 8 - 18 mg/dL [facility] Creatinine 1.20 0.70 - 1.20 mg/dL [facility] Sodium 135 135 - 145 mmol/L [facility] Potassium 2.7(Criti edy) 3.5 - 5.0 mmol/L [facility] Comment: called by [place] /read back by Jolly Friedman / 06/16/23 0842 Please note: ??Patients with WBC >100,000 may have falsely elevated Potassium levels. ??For accurate Potassium quantification in these patients send serum separator tube (gold top) for subsequent determinations. ??Contact the Clinical Chemistry Laboratory if there are any questions. Chloride 90(L) 98 - 107 mmol/L [facility] Carbon Dioxide 33(H) 22 - 31 mmol/L [facility] Anion Gap 12 5 - 15 mmol/L [facility] Calcium 9.2 8.5 - 10.5 mg/dL [facility] Est Glomerular Filtration Rate 54(L) >=60 mL/min/1. 73 m?? [facility] [...] MD CHEMISTRY ORDERABL ES Performing Organization Address [facility] [facility] Co de Phone Number [facility] [place] [address] * Heparin (unfractionated) Level (06/16/2023 3:30 AM EDT) UF Heparin 0.64 IU/mL [facility] Comment: Heparin (anti-Xa) [...] MD HEMATOLOGY ORDERABLE S Performing Organization Address [facility]ZIP Co de Phone Number [facility] [place] [address] * Lipid Panel (Reflex Direct LDL) (06/16/2023 3:30 AM EDT) Cholesterol, Total 190 mg/dL [facility] Comment: Desirable: ? <200 mg/dL Borderline High: 200-239 mg/dL Higher: ?>wu=241 mg/dL Triglyceride 126 mg/dL [facility] Comment: Normal: ?<150 mg/dL Borderline High: 150-199 mg/dL High: ?200-499 mg/dL Very High: ? >cd=576 mg/dL HDL Cholesterol 50 mg/dL [facility] Comment: Females: High Risk: <50 mg/dL Males: High Risk: <40 mg/dL LDL Cholesterol 115 mg/dL [facility] Comment: Desirable: ? <100 mg/dL Above Desirable: 100-129 mg/dL Borderline High: 130-159 mg/dL High: ?160-189 mg/dL Very High: ? >nq=768 mg/dL Lipid Interpretation See Note [facility] [...] ACC/AHA Guidelines (most recently Ysabel et al. [facility] 12/09/21): For individuals with atherosclerotic cardiovascular disease (ASCVD)or LDL >dm=092 mg/dL, use a high-intensity statin (40-80 mg [...] MD CHEMISTRY ORDERABLES [facility] [place] [address] * (ABNORMAL) Basic Metabolic Panel (non-fasting) (06/15/2023 9:33 PM EDT) Glucose 120 65 - 199 mg/dL [facility] Comment:Diabetes: >=200 mg/d L plus symptoms Blood Urea Nitrogen 29(H) 8 - 18 mg/dL [facility] [...] mmol/L [facility] Carbon Dioxide 31 22 - 31 mmol/L [facility] Anion Gap 12 5 - 15 mmol/L [facility] Calcium 9.4 8.5 - 10.5 mg/dL [facility] Est Glomerular Filtration Rate 45(L) >=60 mL/min/1. 73 m?? [facility] [...] CHEMISTRY ORDERABL ES [facility] [place] [address] * Heparin (unfractionated) Level (06/15/2023 9:33 PM EDT) UF Heparin 0.63 IU/mL [facility] Comment: Heparin (anti-Xa) [...] MD HEMATOLOGY ORDERABLE S Performing Organization Address [facility] Co de Phone Number [facility] [place] [address] * (ABNORMAL) Magnesium (06/15/2023 5:47 PM EDT) Magnesium 1.10(H) 0.69 - 1.07 mmol/L [facility] Blood Venous Draw / Unknown 06/15/2023 5:47 PM EDT 06/15/2023 6:10 PM EDT Narrative Resulting Agency Comment Spec In Lab Terrence Keating MD CHEMISTRY ORDERABLES Performing Organization Address [facility] Co de Phone Number [facility] [place] [address] * (ABNORMAL) Basic Metabolic Panel (non-fasting) (06/15/2023 5:47 PM EDT) Glucose 147 65 - 199 mg/dL [facility] Comment:Diabetes: >=200 mg/d L plus symptoms Blood Urea Nitrogen 29(H) 8 - 18 mg/dL [facility] [...] mmol/L [facility] Carbon Dioxide 29 22 - 31 mmol/L [facility] Anion Gap 16(H) 5 - 15 mmol/L [facility] Calcium 9.1 8.5 - 10.5 mg/dL [facility] Est Glomerular Filtration Rate 54(L) >=60 mL/min/1. 73 m?? [facility] [...] CHEMISTRY ORDERABL ES [facility] [place] [address] * Rapid Drug Screen w/o Confirmation, Urine (06/15/2023 4:46 PM EDT) Pathologist [facility] Barbiturates Screen, Urine None Detected None Detected [facility] [...] Benzodiazepines Screen, Urine None Detected None Detected [facility] [...] Cocaine Screen, Urine None Detected None Detected [facility] [...] Metabolites Screen, Urine None Detected None Detected [facility] [...] Opiate Screen, Urine None Detected None Detected [facility] [...] Cannabinoid Screen, Urine None Detected None Detected [facility] Comment: The marijuana metabolites screen detects the THC metabolite (30-lsn-2-carboxy-delta 9-THC) at concentrations >20 ng/mL. A ? Presumptive Positive? result indicates that the screening result was positive but has not yet been confirmed by a highly-specific method. As with any screen, occasional false positive results from cross-reacting substances may occur. Not for Medico-Legal Purposes. Oxycodone Screen, Urine None Detected None Detected [facility] [...] Buprenorphine Screen, Urine None Detected None Detected [facility] [...] characteristics of this test were determined by [facility] in accordance with CLIA requirements. This laboratory is qualified under CLIA to perform high-complexity testing. Fentanyl Screen, Urine None Detected None Detected [facility] [...] this test were determined by [facility] in accordance with CLIA requirements. This laboratory is qualified under CLIA to perform high-complexity testing. Tricyclics Screen, Urine None Detected None Detected [facility] [...] characteristics of this test were determined by [facility] in accordance with CLIA requirements. This laboratory is qualified under CLIA to perform high-complexity testing. Ethanol Screen, Urine None Detected None Detected [facility] Comment:This urine ethanol a ssay detects ethanol at concentrations >/= 100 mg/L. Amphetamines Screen, Urine None Detected None Detected [facility] [...] Specimen Validity Test, Urine 39 >=20 mg/dL [facility] Chromate Specimen Validity Test, Urine <2.0 <=49.9 mg/L [facility] Nitrite Specimen Validity Test, Urine <50 <=499 mg/L [facility] Oxidant Specimen Validity Test, Urine 12 <=199 mg/L [facility] pH Specimen Validity Test, Urine 5.4 3.0 - 10.9 [facility] Adulterants Screen, Urine None Detected None Detected [facility] Comment:No adulteration of t his urine sample was detected. Urine 06/15/2023 4:46 PM EDT 06/15/2023 5:30 PM EDT Narrative Resulting Agency Comment Spec In Lab Eufemia Copeland MD CHEMISTRY ORDERABL ES [facility] [place] [address] * Rapid Drug Screen, Urine (TEE Request) (06/15/2023 4:46 PM EDT) TEE Conf Requested No [facility] TEE Requested See Comment [facility] Comment:Refer to Rapid Drug Screen w/o Confirmation, Urine for results. Urine 06/15/2023 4:46 PM EDT 06/15/2023 5:30 PM EDT Narrative Resulting Agency Comment Spec In Lab Eufemia Copeland MD URINE ORDERABLES [facility] [place] [address] * (ABNORMAL) Basic Metabolic Panel (non-fasting) (06/15/2023 2:29 PM EDT) Glucose 141 65 - 199 mg/dL [facility] Comment:Diabetes: >=200 mg/d L plus symptoms Blood Urea Nitrogen 31(H) 8 - 18 mg/dL [facility] [...] mmol/L [facility] Carbon Dioxide 32(H) 22 - 31 mmol/L [facility] Anion Gap 11 5 - 15 mmol/L [facility] Calcium 9.6 8.5 - 10.5 mg/dL [facility] Est Glomerular Filtration Rate 53(L) >=60 mL/min/1. 73 m?? [facility] [...] MD CHEMISTRY ORDERABL ES Performing Organization Address [facility] Co de Phone Number [facility] [place] [address] * Heparin (unfractionated) Level (06/15/2023 2:29 PM EDT) Pathologist [facility] UF Heparin 0.93 IU/mL [facility] Comment: Heparin (anti-Xa) [...] MD HEMATOLOGY ORDERABLE S Performing Organization Address [facility]/ZIP Co de Phone Number [facility] [place] [address] * EKG 12 Lead (06/15/2023 10:50 AM EDT) Ventricular rate 55 BPM MUSE SYSTEM Atrial Rate 55 BPM MUSE SYSTEM P-R Interval 184 ms MUSE SYSTEM QRS Duration 96 ms MUSE SYSTEM Q-T Interval 590 ms MUSE SYSTEM QTC Calculated (Bezet) 565 ms MUSE SYSTEM Calculated P [place] 54 degrees MUSE SYSTEM Calculated R [place] 54 degrees MUSE SYSTEM Calculated T [place] 13 degrees MUSE SYSTEM INTERPRETATION Sinus bradycardia with sinus arrhythmia Marked ST abnormality, possible inferior subendocardial injury Long QT interval Abnormal ECG When compared with ECG of 15-JUN-2023 02:17, Nonspecific T wave abnormality has replaced inverted T waves in Lateral leads Confirmed by Kai Haider ([id number]) on 06/16/2023 3:52:04 PM MUSE SYSTEM 06/15/2023 10:5 0 AM EDT 06/16/2023 3:52 PM EDT Terrence Keating MD ECG ORDERABLES MUSE SYSTEM * (ABNORMAL) Basic Metabolic Panel (non-fasting) (06/15/2023 8:18 AM EDT) Glucose 113 65 - 199 mg/dL [facility] Comment:Diabetes: >=200 mg/d L plus symptoms Blood Urea Nitrogen 29(H) 8 - 18 mg/dL [facility] [...] mmol/L [facility] Carbon Dioxide 30 22 - 31 mmol/L [facility] Anion Gap 15 5 - 15 mmol/L [facility] Calcium 10.0 8.5 - 10.5 mg/dL [facility] Est Glomerular Filtration Rate 53(L) >=60 mL/min/1. 73 m?? [facility] [...] MD CHEMISTRY ORDERABL ES Performing Organization Address [facility] Co de Phone Number [facility] [place] [address] * Heparin (unfractionated) Level (06/15/2023 8:18 AM EDT) UF Heparin 0.70 IU/mL [facility] Comment: Heparin (anti-Xa) [...] MD HEMATOLOGY ORDERABLE S Performing Organization Address City/[facility]/ZIP Co de Phone Number [facility] [place] [address] * (ABNORMAL) Troponin (06/15/2023 8:18 AM EDT) [facility] Troponin-T, High Sensitivity 33(H) <=14 ng/L [facility] Comment: [...] in the [facility] Laboratory Test Catalog Troponin - [facility] Laboratory Test Catalog Reference: [place] Definition of Myocardial Infarction. Journal of the [place] [employer] 2018;72:1470-0548 Blood 06/15/2023 8:18 AM EDT 06/15/2023 8:34 AM EDT Narrative Resulting Agency Comment Spec In Lab Terrence Keating MD CHEMISTRY ORDERABLES [facility] [place] [address] * Differential, Automated (06/15/2023 4:28 AM EDT) Pathologist [facility] Neutrophil % 48.0 % [facility] Neutrophil Absolute 3.20 1.70 - 6.10 x10(3)/mcL [facility] Lymph % 35.8 % [facility] Lymphocytes Abs 2.4 0.9 - 3.2 x10(3)/[facility] Monocyte % 11.4 % [facility] Monocyte Abs 0.8 0.3 - 0.9 x10(3)/[facility] Eos % 3.7 % [facility] Eosinophils Abs 0.2 0.0 - 0.4 x10(3)/[facility] LAB[facility] Basophil % 1.0 % [facility] Baso Absolute 0.1 0.0 - 0.1 x10(3)/[facility] LABOR[facility] Immature Gran % 0.10 % [facility] [...] x10(3)/[facility] Blood 06/15/2023 4:28 AM EDT 06/15/2023 4:37 AM EDT Narrative Resulting Agency Comment Spec In Lab Terrence Keating MD HEMATOLOGY ORDERABLE S [facility] [place] [address] * (ABNORMAL) Hemogram (06/15/2023 4:28 AM EDT) White Blood Cell 6.7 4.0 - 9.5 x10(3)/ L [facility] Red Blood Cell 5.09 4.00 - 5.21 x10(6)/ L [facility] Hemoglobin 16.1(H) 11.7 - 15.5 g/dL [facility] Hematocrit 48.2(H) 35.7 - 45.8 % [facility] Mean Cell Volume 94.7(H) 82.6 - 94.4 fL [facility] Mean Cell Hemoglobin 31.6 27.1 - 32.0 pg [facility] Mean Cell Hemoglobin Concentration 33.4 31.7 - 35.0 g/dL [facility] Platelet 253 145 - 357 x10(3)/mc L [facility] RDW Standard Deviation 45.5 37.0 - 46.0 fL [facility] RDW coefficient of variation 13.0 11.5 - 14.1 % [facility] Mean Platelet Volume 10.6 7.6 - 12.9 fL [facility] NRBC% auto 0.0 % [facility] NRBC Absolute 0.000 0.000 - 0.000 x10(3)/mc L [facility] Blood 06/15/2023 4:28 AM EDT 06/15/2023 4:37 AM EDT Narrative Resulting Agency Comment Spec In Lab Terrence Keating MD HEMATOLOGY ORDERABLE S [facility] [place] [address] * (ABNORMAL) Troponin (06/15/2023 4:28 AM EDT) Troponin-T, High Sensitivity 34(H) <=14 ng/L [facility] Comment: [...] in the [facility] Laboratory Test Catalog Troponin - [facility] Laboratory Test Catalog Reference: [place] Definition of Myocardial Infarction. Journal of the [place] [employer] 2018;72:7921-8329 Blood 06/15/2023 4:28 AM EDT 06/15/2023 4:37 AM EDT Narrative Resulting Agency Comment Spec In Lab Terrence Keating MD CHEMISTRY ORDERABLES Performing Organization Address [facility] Co de Phone Number [facility] [place] [address] * (ABNORMAL) Prothrombin Time (06/15/2023 4:28 AM EDT) Prothrombin Time 12.7(H) 9.4 - 12.5 sec [facility] [...] MD HEMATOLOGY ORDERABLE S Performing Organization Address [facility] Co de Phone Number [facility] [place] [address] * (ABNORMAL) Hepatic Function Panel (06/15/2023 4:28 AM EDT) Protein, Total 7.5 6.1 - 8.0 g/dL [facility] Albumin 4.3 3.2 - 5.2 g/dL [facility] Aspartate Aminotransferase 32(H) 0 - 30 unit/L [facility] Alanine Aminotransferase 26 0 - 30 unit/L [facility] Alkaline Phosphatase 70 35 - 105 unit/L [facility] Bilirubin, Total 0.8 0.2 - 1.3 mg/dL [facility] Bilirubin, Direct 0.1 0.0 - 0.3 mg/dL [facility] Blood 06/15/2023 4:28 AM EDT 06/15/2023 4:37 AM EDT Narrative Resulting Agency Comment Spec In Lab Terrence Keating MD CHEMISTRY ORDERABLES Performing Organization Address City/[facility]/ZIP Co de Phone Number [facility] [place] [address] * (ABNORMAL) pro-Brain Natriuretic Peptide (06/15/2023 4:28 AM EDT) NT-proBNP 1,953(H) <=124 pg/mL [facility] Blood 06/15/2023 4:28 AM EDT 06/15/2023 4:37 AM EDT Narrative Resulting Agency Comment Spec In Lab Terrence Keating MD CHEMISTRY ORDERABLES Performing Organization Address City/[facility]/ZIP Co de Phone Number [facility] [place] [address] * TSH (06/15/2023 4:28 AM EDT) Thyroid Stimulating Hormone 2.98 0.27 - 4.20 mcIU/mL [facility] Comment: Reference Interval (mcIU/mL): Females: ??First Trimester: 0.23-3.88 ??Second Trimester: 0.22-3.90 ??Third Trimester: 0.44-4.66 Blood 06/15/2023 4:28 AM EDT 06/15/2023 4:37 AM EDT Narrative Resulting Agency Comment Spec In Lab Terrence Keating MD CHEMISTRY ORDERABLES Performing Organization Address [facility]/ZIP Co de Phone Number [facility] [place] [address] * Phosphorus (06/15/2023 4:28 AM EDT) Phosphorus 4.4 2.5 - 4.5 mg/dL [facility] Blood 06/15/2023 4:28 AM EDT 06/15/2023 4:37 AM EDT Narrative Resulting Agency Comment Spec In Lab Terrence Keating MD CHEMISTRY ORDERABLES Performing Organization Address [facility] Co de Phone Number [facility] [place] [address] * (ABNORMAL) Magnesium (06/15/2023 4:28 AM EDT) Magnesium 1.22(H) 0.69 - 1.07 mmol/L [facility] Blood 06/15/2023 4:28 AM EDT 06/15/2023 4:37 AM EDT Narrative Resulting Agency Comment Spec In Lab Terrence Keating MD CHEMISTRY ORDERABLES Performing Organization Address City/[facility]/ZIP Co de Phone Number [facility] [place] [address] * Calcium (06/15/2023 4:28 AM EDT) Calcium 9.7 8.5 - 10.5 mg/dL [facility] Blood 06/15/2023 4:28 AM EDT 06/15/2023 4:37 AM EDT Narrative Resulting Agency Comment Spec In Lab Terrence Keating MD CHEMISTRY ORDERABLES Performing Organization Address City/[facility]/ZIP Co de Phone Number [facility] [place] [address] * (ABNORMAL) Basic Metabolic Panel (non-fasting) (06/15/2023 4:28 AM EDT) Glucose 112 65 - 199 mg/dL [facility] Comment:Diabetes: >=200 mg/d L plus symptoms Blood Urea Nitrogen 30(H) 8 - 18 mg/dL [facility] [...] mmol/L [facility] Carbon Dioxide 28 22 - 31 mmol/L [facility] Anion Gap 16(H) 5 - 15 mmol/L [facility] Calcium 9.7 8.5 - 10.5 mg/dL [facility] Est Glomerular Filtration Rate 52(L) >=60 mL/min/1. 73 m?? [facility] [...] MD CHEMISTRY ORDERABLES [facility] [place] [address] * EKG 12 Lead (06/15/2023 2:17 AM EDT) Ventricular rate 57 BPM MUSE SYSTEM Atrial Rate 57 BPM MUSE SYSTEM P-R Interval 200 ms MUSE SYSTEM QRS Duration 94 ms MUSE SYSTEM Q-T Interval 606 ms MUSE SYSTEM QTC Calculated (Bezet) 591 ms MUSE SYSTEM Calculated P [place] 66 degrees MUSE SYSTEM Calculated R [place] 74 degrees MUSE SYSTEM Calculated T [place] -33 degrees MUSE SYSTEM INTERPRETATION Sinus bradycardia Possible Lateral infarct (cited on or before 17-APR-2023) Marked ST abnormality, possible inferior subendocardial injury Prolonged QTc Abnormal ECG When compared with ECG of 20-APR-2023 10:23, Nonspecific T wave changes QT has lengthened Confirmed by fellow MD Hansa, Sindhu ([id number]) on 06/15/2023 4:36:19 PM Confirmed by MD Petey, Kia ([id number]) on 06/15/2023 4:51:21 PM MUSE SYSTEM 06/15/2023 2:17 AM EDT 06/15/2023 4:51 PM EDT Terrence Keating MD ECG ORDERABLES Performing Organization Address City/[facility] Co de Phone Number MUSE SYSTEM [...] 0854 (Given - Provider: Heidy Paris RN)1332 ([facility] Hold - Provider: Admin Adt - Reason: Transfer to a Procedural area)1548 ([facility] Unhold - Provider: Admin Adt) 0855 (Given - Provider: Heidy Paris RN) 0930 (Given - Provider: Heidy Paris RN) DULoxetine DR (Cymbalta) capsule 60 mg 60 mg, Oral, DAILY, First dose on Wed06/15/23 at 0900, Until Discontinued, Routine 0853 (Given - Provider: Heidy Paris RN)1332 ([facility] Hold - Provider: Admin Adt - Reason: Transfer to a Procedural area)1548 ([facility] Unhold - Provider: Admin Adt) 0856 (Given - Provider: Heidy Paris RN) 0931 (Given - Provider: Heidy Paris RN) gabapentin (Neurontin) capsule 600 mg 600 mg, Oral, NIGHTLY, First dose on Wed06/15/23 at 0200, Until Discontinued, Routine 1332 ([facility] Hold - Provider: Admin Adt - Reason: Transfer to a Procedural area)1548 ([facility] Unhold - Provider: Admin Adt)2137 (Given [...] Heidy Paris RN - Reason: Patient/family refused)1332 ([facility] Hold - Provider: Admin Adt - Reason: Transfer to a Procedural area)1548 ([facility] Unhold - Provider: Admin Adt) 1000 [...] Admin Adt) 0856 (Given - Provider: Heidy aPris RN) 0931 (Given - Provider: Heidy Paris [...] Heidy Paris RN - Reason: Patient/family refused)1332 ([facility] Hold - Provider: Admin Adt - Reason: Transfer to a Procedural area)1548 ([facility] Unhold - Provider: Admin Adt) 0900 [...] 0853 (Given - Provider: Heidy Paris RN)1332 ([facility] Hold - Provider: Admin Adt - Reason: Transfer to a Procedural area)1548 ([facility] Unhold - Provider: Admin Adt)2135 (Given [...] Heidy Paris RN - Reason: Patient/family refused)1332 ([facility] Hold - Provider: Admin Adt - Reason: Transfer to a Procedural area)1548 ([facility] Unhold - Provider: Admin Adt) 1000 (Not Given - Provider: Heidy Paris RN - Reason: Patient/family refused) rOPINIRole (Requip) tablet 2 mg 2 mg, Oral, 2 TIMES DAILY, First dose on Wed06/15/23 at 0245, Until Discontinued, Routine 0853 (Given - Provider: Heidy Paris RN)1332 ([facility] Hold - Provider: Admin Adt - Reason: Transfer to a Procedural area)1548 ([facility] Unhold - Provider: Admin Adt)2137 (Given [...] Heidy Paris RN - Reason: Patient/family refused)1332 ([facility] Hold - Provider: Admin Adt - Reason: Transfer to a Procedural area)1548 ([facility] Unhold - Provider: Admin Adt)2100 (Not [...] 0859 (Given - Provider: Heidy Paris RN)1332 ([facility] Hold - Provider: Admin Adt - Reason: Transfer to a Procedural area)1548 ([facility] Unhold - Provider: Admin Adt)2100 (Not [...] 0853 (Given - Provider: Heidy Paris RN)1332 ([facility] Hold - Provider: Admin Adt - Reason: Transfer to a Procedural area)1548 ([facility] Unhold - Provider: Admin Adt) 0856 (Given - Provider: Heidy Paris RN) 0931 (Given - Provider: Heidy Paris RN) topiramate (Topamax) tablet 100 mg 100 mg, Oral, NIGHTLY, First dose on Wed06/15/23 at 2100, Until Discontinued, Routine 1332 (MAY Hold - Provider: Admin Adt - Reason: Transfer to a Procedural area)1548 ([facility] Unhold - Provider: Admin Adt)213 (Given [...] Until Wed07/07/23 at 1548, Endoscopy (Intra-Procedure) 1410 ([facility] Bag - Provider: Gisel Boyer RN) PRN [...] ordered pain medications are indicated., Routine 1332 ([facility] Hold - Provider: Admin Adt - Reason: Transfer to a Procedural area)1548 ([facility] Unhold - Provider: Admin Adt) albuteroL (Proventil, Ventolin) (2.5 mg/3 mL) (0.083 %) nebulizer solution 2.5 mg 2.5 mg, Nebulization, EVERY 4 HOURS PRN, Starting on Wed07/04/23 at 0857, Until Wed07/09/23 at 1844, Wheezing, Routine 1332 ([facility] Hold - Provider: Admin Adt - Reason: Transfer to a Procedural area)1548 ([facility] Unhold - Provider: Admin Adt) lidocaine (Xylocaine) 1% (10 mg/mL) injection 3 mg 3 mg (0.3 mL), Subcutaneous, ONCE PRN, 1 dose, Starting on Wed06/15/23 at 0146, Until Wed07/09/23 at 1844, for discomfort with PIV insertion, Routine 1332 ([facility] Hold - Provider: Admin Adt - Reason: Transfer to a Procedural area)1548 ([facility] Unhold - Provider: Admin Adt) loratadine (Claritin) tablet 10 mg 10 mg, Oral, DAILY PRN, Starting on Wed06/15/23 at 0146, Until Wed07/09/23 at 1844, allergies, Routine 1332 ([facility] Hold - Provider: Admin Adt - Reason: Transfer to a Procedural area)1548 ([facility] Unhold - Provider: Admin Adt) nitroGLYcerin (Nitrostat) disintegrating tablet 0.4 mg 0.4 mg, Sublingual, EVERY 5 MIN PRN, Starting on Wed06/22/23 at 1119, Until Wed07/09/23 at 1844, Chest pain, SL nitroglycerin may be repeated every 5 minutes as needed up to 3 doses, Routine 1332 ([facility] Hold - Provider: Admin Adt - Reason: Transfer to a Procedural area)1548 ([facility] Unhold - Provider: Admin Adt) 0951 (Given - Provider: Heidy Paris, ERWIN) ondansetron (pf) (Zofran) (2 mg/mL) injection 4 mg 4 mg, Intravenous, EVERY 8 HOURS PRN, Starting on Wed06/29/23 at 1449, Until Wed07/09/23 at 1844, Nausea 1332 ([facility] Hold - Provider: Admin Adt - Reason: Transfer to a Procedural area)1548 ([facility] Unhold - Provider: Admin Adt)2137 (Given [...] from all sources in 24 hours. 1332 ([facility] Hold - Provider: Admin Adt - Reason: Transfer to a Procedural area)1548 ([facility] Unhold - Provider: Admin Adt)2137 (Given - Provider: Lorena Torres, ERWIN) 0855 (Given - Provider: Heidy Paris, ERWIN)2120 (Given - Provider: Machelle Busch RN) simethicone (Gas-X Chew) 80 mg chewable tablet 80 mg 80 mg, Oral, EVERY 6 HOURS PRN, Starting on Wed06/20/23 at 0941, Until Wed07/09/23 at 1844, Cramping, Routine 1332 ([facility] Hold - Provider: Admin Adt - Reason: Transfer to a Procedural area)1548 ([facility] Unhold - Provider: Admin Adt) 1344 [...] Routine documented in this encounter Care Teams Lifter/Driver Relationship Specialty Start Date End Date Polo Pearce PA [address] [place] [address] PCP - General Internal Medicine 06/09/21 documented as of this encounter
--- OUTSIDE RECORDS SUMMARY | 2024-01-24 21:10 | XMS_ITS | Encounter Summary ---
[place] [address] Care Team Providers Care Talent Management Manager Name Role Phone Polo Pearce Primary Care Provider [phone] Reason for Visit * Auth/Cert (Routine) Specialty Diagnoses / Procedures Referred By Contac t Referred To Contact Diagnoses NSTEMI (non-ST elevated myocardial infarction) NSTEMI Procedures ER Terrence Pantoja MD [facility] [place] [place] [address] [facility] Referral ID Status Reason Start Date Expiration Date Visits Re quested Visits Authorized [id number] 1 1 Encounter Details Date Type Department Care Team (Late st Contact Info) Description 07/07/2023 1:00 PM EDT - 07/07/2023 2:00 PM EDT [place] [address] Lashonda Villa MD [facility] [place] [address] EGD WITH BIOPSY (WRVU 2.39) Social History Tobacco Use Types Packs/Day Years Used Date Smoking Tobacco: Never Smokeless Tobacco: Never Alcohol Use Standard Drinks/Week Comments Never 0 (1 standard drink = 0.6 oz pur e alcohol) [facility] Utilities Answer Date Recorded In [...] Loida Roque Patient Age: 53 y.o. 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 Issues afterhours and on weekends will [...] have questions please contact the health care director rn that requested your imaging first. Electronically signed by: Wilton Cabrera MD, [facility] ([phone]), at 06/17/2023 5:[address] Abdomen & [...] have questions please contact the health care director rn that requested your imaging first. Chest One [...] have questions please contact the health care director rn that requested your imaging first. Abdomen Limited (Exam End: 06/28/2023 12:22 PM) Result Value WORKSTATION ID [id number] Narrative Abdominal (Signed Final 06/28/2023 02:08 pm) PATIENT INFO: ID #: [id number] : [birth year] (53 yrs)(F) Name: LOIDA Visit Date: 06/28/2023 12:20 pm ROHAN PERFORMED BY: Attending: Sigrid Owens MD Resident: Rafaela Huddleston MD Performed By: Deena Cabrera RDMS Referred By: AILYN IRVIN Location: [facility] SERVICE(S) PROVIDED: UABDLIM - Abdominal Limited Survey Single [id number] Organ or Quadrant - [id number] INDICATIONS: RUQ pain, R/o Gall bladder colic, [...] have questions, please contact the health care director rn that requested your imaging first. Sigrid Owens, E Military Analyst Electronically Signed Final Report 06/28/2023 02:08 pm [...] anesthetic: 10 cc 1% lidocaine Heparin: Yes 41295 Units Protamine: No mg Antibiotics: Ancef Fluoro [...] exchanged the sheath for a 7 Maltese horse trekking guide steerable sheath over a stiff wire. A Glidewire and Kumpe catheter were used to selectively cannulate the superior mesenteric artery. Direct angiography of the superior mesenteric artery was performed, confirming the results of the nonselective aortography performed. The lesion was predilated with a 4 mm x 40 mm Mesa balloon, and then a 6 mm X [...] 07/03/2023 3:18 PM) Result Value WORKSTATION ID [id number] Narrative EXAMINATION: XR CHEST ONE VIEW CLINICAL [...] have questions please contact the health care director rn that requested your imaging first. Echocardiogram from [...] 04/16/23 to 04/19/2023 as a transfer from [facility] due to exertional chest pressure and [...] Administered Date(s) Administered Moderna Covid-19 Monovalent 12Yr+ (Wire Welder 100mcg) 03/06/2020, 04/03/2020 Discharge Medications: Your Medications [...] weight gain + increasing shortness of breath. [id number] minutes prior to a dose of torsemide). [...] appointments: During 8am-5pm Wednesday through Wednesday call [phone] to speak with a nurse in the cardiology clinic All other times call [phone] and ask to speak to the mechanical press operator agronomy specialist. Return to work: One week Driving: No driving for 48 hours after catheterization. Follow up Appointments: PCP JOCY Franco [phone] 11:30am on July 19. Cardiology office will call you regarding your appointment with Dr. Kinsey. General Instructions None Future Appointments and Orders Future Appointments and Orders Future Appointments Provider Department Dept Phone 07/26/2023 3:20 PM Jaspreet Kinsey MD Cardiology at [place] Arrive at: [facility] [address] [phone] 07/29/2023 8:00 AM Porsha Mcdaniels MD Cardiology at [facility] Arrive at: [facility] [place] [facility] [phone] 08/03/2023 8:30 AM Eladio Boyer Vascular Lab at [facility] Arrive at: [place] [facility] 3V [phone] 08/03/2023 9:30 AM Judith Butler APRN Vascular Surgery at [facility] Arrive at: [place] [facility] 3V [phone] 09/02/2023 2:40 PM Jaspreet Kinsey MD Cardiology at [place] Arrive at: [facility] [address] [phone] Discharge References/Attachments None Greater than 30 minutes was spent on this discharge including documentation, [id number] time withthe patient, patient education, telephone order supervisor, coordination with pharmacy and other patient care. [...] appointments: During 8am-5pm Wednesday through Wednesday call [phone] to speak with a nurse in the cardiology clinic All other times call [phone] and ask to speak to the mechanical press operator agronomy specialist. Return to work: One week Driving: No driving for 48 hours after catheterization. Follow up Appointments: PCP JOCY Franco [phone] 11:30am on July 19. Cardiology office will [...] Please refer to: [facility] [address] [place] [address] PHONE: [phone] FAX: [phone] *For RN RICARDO: 07/09/23 Nani Mendoza MSN-Ed, RN ACM Cardiac Research Nurse and Neuro/Neurocrit/ENT Mash Grinder. 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 Lives in [...] Lashonda Villa MD Gastroenterology and hepatology Pager: [phone] * Patricia Rosas RCP - 07/08/2023 4:10 [...] 9:00 AM EDT CV HOSPITALIST 2 - [facility] DAILY PROGRESS NOTE Page [phone] to reach a provider 28/09 Admit Date: [...] Score: 24 PT: OT: PCP JOCY Franco [phone] Terrence Keating MD 07/07/2023 * Terrence Keating MD - 07/06/2023 11:00 AM EDT CV HOSPITALIST 2 - [facility] DAILY PROGRESS NOTE Page [phone] to reach a provider 28/09 Admit Date: [...] Score: 24 PT: OT: PCP JOCY Franco [phone] Terrence Keating MD 07/06/2023 * Ana Paula [...] 11:00 AM EDT CV HOSPITALIST 2 - [facility] DAILY PROGRESS NOTE Page [phone] to reach a provider 28/09 Admit Date: [...] Score: 24 PT: OT: PCP JOCY Franco [phone] Terrence Keating MD 07/05/2023 * Lino Calles MD - 07/04/2023 9:09 AM EDT CV HOSPITALIST 2 - [facility] DAILY PROGRESS NOTE Page [phone] to reach a provider 28/09 Admit Date: [...] Score: 24 PT: OT: PCP JOCY Franco [phone] Lino Calles MD 07/04/2023 * Ana Paula [...] 8:59 AM EDT CV HOSPITALIST 2 - [facility] DAILY PROGRESS NOTE Page [phone] to [...] Score: 24 PT: OT: PCP JOCY Franco [phone] Lino Calles MD 07/03/2023 * Van Muse [...] 9:55 AM EDT CV HOSPITALIST 2 - [facility] DAILY PROGRESS NOTE Page [phone] to reach a provider 28/09 Admit Date: [...] Score: 24 PT: OT: PCP JOCY Franco [phone] Lino Calles MD 07/02/2023 * Jaspreet Griffith, [facility] - 07/02/2023 6:35 AM EDT [...] 7:39 AM EDT CV HOSPITALIST 2 - [facility] DAILY PROGRESS NOTE Page [phone] to reach a provider 28/09 Admit Date: [...] Score: 24 PT: OT: PCP JOCY Franco [phone] Terrence Keating MD 07/01/2023 * Terrence Keating MD - 06/30/2023 8:00 AM EDT CV HOSPITALIST 2 - [facility] DAILY PROGRESS NOTE Page [phone] to reach a provider 28/09 Admit Date: [...] Score: 24 PT: OT: PCP JOCY Franco [phone] Terrence Keating MD 06/30/2023 * Terrence Keating MD - 06/29/2023 4:29 PM EDT CV HOSPITALIST 2 - [facility] DAILY PROGRESS NOTE Page [phone] to reach a provider 28/09 Admit Date: [...] Score: 24 PT: OT: PCP JOCY Franco [phone] Terrence Keating MD 06/29/2023 * Jo Ann Sharpe - 06/29/2023 2:54 PM EDT Nutrition Services Note - Low Nutrition Acuity Loida Roque is a 53 y.o. female Reason for intervention: follow up Nutrition Plan: Continue current diet. Encourage good PO intake. Spironolactone noted. Abdominal pain after eating noted. Encouragement and support provided. Pt screened for follow-up visit and rfp writer met with Pt at bedside. Pt [...] consulted in the interim. Jo Ann Sharpe Bed And Breakfast Operator * Mary Castaneda RCP - 06/29/2023 [...] 1:53 PM EDT CV HOSPITALIST 2 - [facility] DAILY PROGRESS NOTE Page 3910 to reach a provider 28/09 Admit Date: [...] Score: 24 PT: OT: PCP JOCY Franco [phone] * Ailyn Irvin MD - 06/27/2023 9:40 AM EDT CV HOSPITALIST 2 - [facility] DAILY PROGRESS NOTE Page 3505 to reach a provider 28/09 Admit Date: [...] Score: 24 PT: OT: PCP JOCY Franco [phone] * Ailyn Irvin MD - 06/26/2023 12:42 PM EDT CV HOSPITALIST 2 - [facility] DAILY PROGRESS NOTE Page [phone] to reach a provider 28/09 Admit Date: [...] Score: 24 PT: OT: PCP JOCY Franco [phone] * Mitali Manuel RCP - 06/26/2023 5:43 [...] 1:39 PM EDT CV HOSPITALIST 2 - [facility] DAILY PROGRESS NOTE Page 5944 to reach a provider 28/09 Admit Date: [...] Score: 24 PT: OT: PCP JOCY Franco [phone] * Edith Chandler RCP - 06/24/2023 10:40 [...] 4:38 PM EDT CV HOSPITALIST 2 - [facility] DAILY PROGRESS NOTE Page 4936 to reach a provider 28/09 Admit Date: [...] Score: 24 PT: OT: PCP JOCY Franco [phone] * Aaron Rosado RCP - 06/24/2023 1:55 [...] 1:03 PM EDT CV HOSPITALIST 2 - [facility] DAILY PROGRESS NOTE Page [phone] to reach a provider 28/09 Admit Date: [...] Score: 24 PT: OT: PCP JOCY Franco [phone] * Ciera Valdovinos RD - 06/22/2023 2:38 PM EDT Nutrition Services Note - Low Nutrition Acuity Loida Roque is a 53 y.o. female Reason for intervention: hospital day 9 Nutrition Plan: Cardiac Diet Record % PO intake Monitor weight - diuresis noted Patient screened for hospital length of stay nutrition visit, rfp writer met with Loida at bedside. Loida [...] 1:35 PM EDT CV HOSPITALIST 2 - [facility] DAILY PROGRESS NOTE Page [phone] to reach a provider 28/09 Admit Date: [...] have questions please contact the health care director rn that requested your imaging first. Chest One View (Exam End: 06/22/2023 11:42 AM) Impression No acute pulmonary findings Thank you for letting us participate in the care of this patient. If you are a health care provider and have any questions regarding this report, please contact the number below. For patients who have questions please contact the health care director rn that requested your imaging first. Assessment: Loida [...] Score: 24 PT: OT: PCP JOCY Franco [phone] * Eufemia Copeland MD - 06/21/2023 11:02 AM EDT CV HOSPITALIST 2 - [facility] DAILY PROGRESS NOTE Page [phone] to reach a provider 28/09 Admit Date: [...] Restart eliquis 06/15. #Migraines - continue home [employer] [facility] - migraine cocktail PRN Fluids: per migraine cocktail Electrolytes: replete as above Diet: Daily Healthy Menu Choices/Cardiac diet ([facility]-Diet) DVT Prophlaxis: eliquis Code status: Attempt Cardiopulmonary Resuscitation - Inpatient Disposition: Discharge Planning: AM-PAC Basic Mobility Raw Score: 24 PT: OT: PCP JOCY Franco [phone] * Eufemia Copeland MD - 06/20/2023 8:06 AM EDT CV HOSPITALIST 2 - [facility] DAILY PROGRESS NOTE Page [phone] to reach a provider 28/09 Admit Date: [...] and SVT ablation on 04/01/[address] Tovra, paroxysmal A-fib (diagnosed on 10/20/2022), HFpEF, pulmonary [...] Score: 24 PT: OT: PCP JOCY Franco [phone] * Eufemia Copeland MD - 06/19/2023 10:00 AM EDT CV HOSPITALIST 2 - [facility] DAILY PROGRESS NOTE Page [phone] to reach a provider 28/09 Admit Date: [...] Score: 24 PT: OT: PCP JOCY Franco [phone] * Eufemia Copeland MD - 06/18/2023 9:02 AM EDT CV HOSPITALIST 2 - [facility] DAILY PROGRESS NOTE Page [phone] to reach a provider 28/09 Admit Date: [...] Score: 24 PT: OT: PCP JOCY Franco [phone] * Eufemia Copeland MD - 06/17/2023 12:02 PM EDT CV HOSPITALIST 2 - [facility] DAILY PROGRESS NOTE Page [phone] to reach a provider 28/09 Admit Date: [...] Restart eliquis 06/15 #Migraines - continue home [employer] - migraine cocktail PRN Fluids: per migraine cocktail Electrolytes: replete as above Diet: Daily Healthy Menu Choices/Cardiac diet ([facility]-Diet) DVT Prophlaxis: eliquis Code status: Attempt Cardiopulmonary Resuscitation - Inpatient Disposition: Discharge Planning: AM-PAC Basic Mobility Raw Score: 24 PT: OT: PCP JOCY Franco [phone] * Calista Hernandez, RT - 06/17/2023 4:36 [...] 3:25 PM EDT CV HOSPITALIST 2 - [facility] DAILY PROGRESS NOTE Page [phone] to reach a provider 28/09 Admit Date: [...] Restart eliquis 06/15 #Migraines - continue home [employer] [facility] - migraine cocktail PRN Fluids: per migraine cocktail Electrolytes: replete as above Diet: Daily Healthy Menu Choices/Cardiac diet ([facility]-Diet) DVT Prophlaxis: eliquis Code status: Attempt Cardiopulmonary Resuscitation - Inpatient Disposition: Discharge Planning: AM-PAC Basic Mobility Raw Score: 24 PT: OT: PCP JOCY Franco [phone] documented in this encounter H&P Notes * [...] 04/16/23 to 04/19/2023 as a transfer from [facility] due to exertional chest pressure and [...] Not on file 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 Needs for Transition of Care: Plan for discharge is: Home w/ Services Outpatient Agency/Support Group Needs: None Home Health Services: Registered Nurse Agency Referrals & Follow-up Care: Contact information for follow-up Home Health & Hospice, [place] [address] [place] [address] Transportation: taxi voucher -Ride confirmed entrance #2 [...] other (see comments) (Has CPAP provided through [facility]) DME Needed at Discharge: none Patient is insured through: Primary Insurance: [employer] [place] [employer] [place] / Plan[place] / Product Type: *No Product type* / Secondary Insurance: N/A Prescription Coverage: Yes This plan was formulated with input from patient, (please identify family/friend involved if applicable) and team. All are in agreement with plan. Nani Mendoza MSN-Ed, RN ACM Cardiac Research Nurse and Neuro/Neurocrit/ENT Mash Grinder. * Care Management - Dixie Patterson - 07/09/2023 1:38 PM EDT Transportation for discharge was scheduled and confirmed through [employer]. [employer] will have a utility worker driver here at entrance #2 @4pm to [...] Visceral Aorta 80 16 Celiac Artery, Proximal [place] 119 26 Celiac Artery, Mid [place] 115 21 Celiac Artery, Distal No Vis Sup Mes Artery Proximal [place] [phone] Sup Mes Artery Middle [place] 100 17 Sup Mes Artery Distal [place] 64 15 Hepatic Artery No Vis Splenic [...] sign off at this time, please page [phone] with any questions or concerns. Discussed with [...] Visceral Aorta 80 16 Celiac Artery, Proximal [place] 119 26 Celiac Artery, Mid [place] 115 21 Celiac Artery, Distal No Vis Sup Mes Artery Proximal [place] [phone] 91 Sup Mes Artery Middle [place] 100 17 Sup Mes Artery Distal [place] 64 15 Hepatic Artery No Vis Splenic [...] duplex Discussed with Dr. Kamara. Please page [phone] with any questions or concerns. 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 Fellow in Gastroenterology and Hepatology Pager #[phone] 07/06/2023 Associated attestation - Lashonda Villa MD [...] Lashonda Villa MD Gastroenterology and hepatology Pager: [phone] * Plan of Care - Olive Hernandez [...] Visceral Aorta 80 16 Celiac Artery, Proximal [place] 119 26 Celiac Artery, Mid [place] 115 21 Celiac Artery, Distal No Vis Sup Mes Artery Proximal [place] [phone] 91 Sup Mes Artery Middle [place] 100 17 Sup Mes Artery Distal [place] 64 15 Hepatic Artery No Vis Splenic [...] duplex Discussed with Dr. Kamara. Please page [phone] with any questions or concerns. Gauri Vega [...] Visceral Aorta 80 16 Celiac Artery, Proximal [place] 119 26 Celiac Artery, Mid [place] 115 21 Celiac Artery, Distal No Vis Sup Mes Artery Proximal [place] 427 91 Sup Mes Artery Middle [place] 100 17 Sup Mes Artery Distal [place] 64 15 Hepatic Artery No Vis Splenic [...] ASA) Discussed with Dr. Kamara. Please page [phone] with any questions or concerns. Gauri Vega [...] Visceral Aorta 80 16 Celiac Artery, Proximal [place] 119 26 Celiac Artery, Mid [place] 115 21 Celiac Artery, Distal No Vis Sup Mes Artery Proximal [place] 427 91 Sup Mes Artery Middle [place] 100 17 Sup Mes Artery Distal [place] 64 15 Hepatic Artery No Vis Splenic [...] 07/02/[address] Kamara. Please page [phone] with any questions or concerns. Gauri Vega [...] Visceral Aorta 80 16 Celiac Artery, Proximal [place] 119 26 Celiac Artery, Mid [place] 115 21 Celiac Artery, Distal No Vis Sup Mes Artery Proximal [place] 427 91 Sup Mes Artery Middle [place] 100 17 Sup Mes Artery Distal [place] 64 15 Hepatic Artery No Vis Splenic [...] tonight Discussed with Dr. Kamara. Please page [phone] with any questions or concerns. Gauri Vega [...] Visceral Aorta 80 16 Celiac Artery, Proximal [place] 119 26 Celiac Artery, Mid [place] 115 21 Celiac Artery, Distal No Vis Sup Mes Artery Proximal [place] 427 91 Sup Mes Artery Middle [place] 100 17 Sup Mes Artery Distal [place] 64 15 Hepatic Artery No Vis Splenic [...] Visceral Aorta 80 16 Celiac Artery, Proximal [place] 119 26 Celiac Artery, Mid [place] 115 21 Celiac Artery, Distal No Vis Sup Mes Artery Proximal [place] 427 91 Sup Mes Artery Middle [place] 100 17 Sup Mes Artery Distal [place] 64 15 Hepatic Artery No Vis Splenic [...] required. Chayo Dominguez PA-C Cardiovascular Medicine Pager [phone] 06/28/2023 Associated attestation - Klarissa Henderson - [...] if further consultation required. Alejandro Tellez MD Agricultural Equipment Design Engineer [id number] Associated attestation - Willy Gómez MD [...] other (see comments) (Has CPAP provided through [employer]) DME Needed at Discharge: No Patient is insured through: Primary Insurance: [employer] [place] Pay[place] [employer] / Plan[place] [...] of Discharge: 06/26/2023 BEA Killian, RN Inpatient Life Science Research Assistant- Cardiology Office of Care Management Pager #: [phone] * Plan of Care - Alejandro Davenport [...] fraction Overview Note: 05/2021: subacute, [facility] [...] Not on file 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 Assessment: Loida Rouqe is a 53 y.o. female admitted with [...] other (see comments) (Has CPAP provided through [facility]) DME Needed at Discharge: No Patient is insured through: Primary Insurance: [employer] [place] [employer] [place] / [place] / [...] other (see comments) (Has CPAP provided through [facility]) DME Needed at Discharge: No Patient is insured through: Primary Insurance: [employer] [place] [employer] [place] / Plan[place] [facility] [place] / Product [...] of Discharge: 06/19/2023 BEA Killian, RN Inpatient Life Science Research Assistant- Cardiology Office of Care Management Pager #: [phone] * Plan of Care - Olive Hernandez [...] COVID test: Lab Results Component Value Date [id number] Not Detected 06/13/2021 Past medical History: Past [...] In the past 12 months has the [employer], gas, oil, or water [employer] threatened to shut off services in your [...] other (see comments) (Has CPAP provided through [facility]) [address] [facility] [facility] [address] Social & Family Supports: All names listed [...] Specific Information: [facility] CP[facility]Prescription Coverage: Primary Insurance: [employer] [place] [employer] [place] / Plan[place] / Product Type: *No Product type* / Secondary Insurance: N/A ; Prescription Coverage: Yes Preferred Pharmacy: [facility] [address] [address] [facility] [address] [address] Status: Patient is a : No Primary Care Provider confirmed: JOCY Franco [phone] Patient/Caregiver Goals of Treatment: To figure out what is wrong Potential Needs for Transition of Care: other (see comments) ([facility] fincal help) Agency [...] planning. Office of Care Management Float / nuclear medicine officer financial planning adviser [email or web address] Pager #[phone] * Consult Note - Jackie Batres MD [...] her case. She has not had recent medical terminologist monitoring for arrhythmia, though unlikely, is possible [...] PM EST Office Visit Cardiology at [address] [place] [address] Jaspreet Kinsey MD [facility] [place] [address] Scheduled Orders Name Type Priority Associated Diagnoses [...] Routine 07/07/2023 2:25 PM EDT Colonoscopy, Biopsy ([id number]) 07/07/2023 2:10 PM EDT post prandial pain Upper Gi Endoscopy, Biopsy ([id number]) 07/07/2023 2:10 PM EDT post prandial pain [...] MD CHEMISTRY ORDERABLES [facility] [place] [address] * Differential, Automated (07/09/2023 3:03 AM EDT) Neutrophil % 51.4 % [facility] Neutrophil Absolute 3.43 1.70 - 6.10 x10(3)/[facility] LABORAT[facility] Lymph % 31.4 % [facility] Lymphocytes Abs 2.1 0.9 - 3.2 x10(3)/[facility] LABORATORY Monocyte % 10.1 % [facility] Monocyte Abs 0.7 0.3 - 0.9 x10(3)/[facility] LABORATORY Eos % 6.0 % [facility] Eosinophils Abs 0.4 0.0 - 0.4 x10(3)/[facility] LABORATORY Basophil % 0.8 % [facility] Baso Absolute 0.0 0.0 - 0.1 x10(3)/[facility] LABORATORY Immature Gran % 0.30 % [facility] [...] 0.04 x10(3)/[facility] LABORATORY Blood 07/09/2023 3:03 AM EDT 07/09/2023 3:14 AM EDT Narrative Resulting Agency Comment Spec In Lab Terrence Keating MD HEMATOLOGY ORDERABLE S [facility] [place] [address] * (ABNORMAL) Hemogram (07/09/2023 3:03 AM EDT) [facility] White Blood Cell 6.7 4.0 - 9.5 x10(3)/mc L [facility] NRBC% auto 0.0 % [facility] NRBC Absolute 0.000 0.000 - 0.000 x10(3)/mc L [facility] Blood 07/09/2023 3:03 AM EDT 07/09/2023 3:14 AM EDT Narrative Resulting Agency Comment Spec In Lab Terrence Keating MD HEMATOLOGY ORDERABLE S [facility] [place] [address] * Heparin (unfractionated) Level (07/09/2023 3:03 AM EDT) [facility] UF Heparin 0.52 IU/mL [facility] Comment: [...] HEMATOLOGY ORDERABLE S [facility] [place] [address] * (ABNORMAL) Basic Metabolic Panel (non-fasting) (07/09/2023 3:03 AM EDT) [facility] Glucose 100 65 - 199 mg/dL MAYO [...] de Phone Number [facility] [place] [address] * Phosphorus (07/09/2023 3:03 AM EDT) Phosphorus 4.5 2.5 - 4.5 mg/dL [facility] Blood 07/09/2023 3:03 AM EDT 07/09/2023 3:14 AM EDT Narrative Resulting Agency Comment Spec In Lab Eufemia Copeland MD CHEMISTRY ORDERABL ES [facility] [place] [address] * Magnesium (07/09/2023 3:03 AM EDT) Magnesium 0.91 0.69 - 1.07 mmol/L [facility] Blood 07/09/2023 3:03 AM EDT 07/09/2023 3:14 AM EDT Narrative Resulting Agency Comment Spec In Lab Eufemia Copeland MD CHEMISTRY ORDERABL ES Performing Organization Address [facility]/ZIP Co de Phone Number [facility] [place] [address] * Heparin (unfractionated) Level (07/08/2023 12:02 PM EDT) Pathologist [facility] UF Heparin 0.45 IU/mL [facility] Comment: [...] MD HEMATOLOGY ORDERABLE S Performing Organization Address [facility]/ZIP Co de Phone Number [facility] [place] [address] * EKG 12 Lead (07/08/2023 9:58 AM EDT) Ventricular rate 66 BPM MUSE SYSTEM Atrial Rate 66 BPM MUSE SYSTEM P-R Interval 178 ms MUSE SYSTEM QRS Duration 92 ms MUSE SYSTEM Q-T Interval 486 ms MUSE SYSTEM QTC Calculated (Bezet) 509 ms MUSE SYSTEM Calculated P [place] 29 degrees MUSE SYSTEM Calculated R [place] 33 degrees MUSE SYSTEM Calculated T [place] 29 degrees MUSE SYSTEM INTERPRETATION Normal sinus rhythm Nonspecific ST and T wave abnormality Prolonged QT Abnormal ECG When compared with ECG of 04-JUL-2023 11:41, Criteria for Septal infarct are no longer Present I personally reviewed the tracing and edited the fellows interpretation Confirmed by fellow MD Keyshawn, Katalina ([id number]) on 07/08/2023 3:18:07 PM Confirmed by MD Beatriz, Klarissa ([id number]) on 07/09/2023 6:15:21 AM MUSE SYSTEM 07/08/2023 9:58 AM EDT 07/09/2023 6:15 AM EDT Lisa Beck MD ECG ORDERABLES MUSE SYSTEM * Differential, Automated (07/08/2023 5:52 AM EDT) Neutrophil % 60.6 % [facility] Neutrophil Absolute 4.42 1.70 - 6.10 x10(3)/[facility] Lymph % 24.8 % [facility] Lymphocytes Abs 1.8 0.9 - 3.2 x10(3)/[facility] Monocyte % 9.2 % [facility] Monocyte Abs 0.7 0.3 - 0.9 x10(3)/[facility] Eos % 4.5 % [facility] Eosinophils Abs 0.3 0.0 - 0.4 x10(3)/[facility] Basophil % 0.5 % [facility] Baso Absolute 0.0 0.0 - 0.1 x10(3)/[facility] Immature Gran % 0.40 % [facility] Comment: Immature granulocytes(IG's)percentage and absolute count will include metamyelocytes, myelocytes, and promyelocytes. Blood smears from CBCs yielding IG's will be scanned manually for concordance. If this scan disagrees with the automated IG or if promyelocytes are noted, a manual differential will be performed. Immature Gran Absolute 0.03 0.00 - 0.04 x10(3)/[facility] Blood 07/08/2023 5:52 AM EDT 07/08/2023 5:58 AM EDT Narrative Resulting Agency Comment Spec In Lab Terrence Keating MD HEMATOLOGY ORDERABLE S [facility] [place] [address] * (ABNORMAL) Hemogram (07/08/2023 5:52 AM EDT) [...] RDW Standard Deviation 44.6 37.0 - 46.0 [facility] RDW coefficient of variation 13.3 11.5 - 14.1 % [facility] Mean Platelet Volume 10.5 7.6 - 12.9 [facility] NRBC% auto 0.0 % [facility] NRBC Absolute 0.000 0.000 - 0.000 x10(3)/mc L [facility] Blood 07/08/2023 5:52 AM EDT 07/08/2023 5:58 AM EDT Narrative Resulting Agency Comment Spec In Lab Terrence Keating MD HEMATOLOGY ORDERABLE S [facility] [place] [address] * Heparin (unfractionated) Level (07/08/2023 5:52 AM EDT) UF Heparin 0.37 IU/mL [facility] Comment: [...] HEMATOLOGY ORDERABLE S [facility] [place] [address] * (ABNORMAL) Basic Metabolic Panel (non-fasting) (07/08/2023 5:52 AM EDT) Pathologist [facility] Glucose 102 65 - 199 mg/dL MAYO [...] de Phone Number [facility] [place] [address] * Phosphorus (07/08/2023 5:52 AM EDT) Phosphorus 4.3 2.5 - 4.5 mg/dL [facility] Blood 07/08/2023 5:52 AM EDT 07/08/2023 5:58 AM EDT Narrative Resulting Agency Comment Spec In Lab Eufemia Copeland MD CHEMISTRY ORDERABL ES Performing Organization Address City/[facility]/ZIP Co de Phone Number [facility] [place] [address] * Magnesium (07/08/2023 5:52 AM EDT) Magnesium 0.89 0.69 - 1.07 mmol/L [facility] Blood 07/08/2023 5:52 AM EDT 07/08/2023 5:58 AM EDT Narrative Resulting Agency Comment Spec In Lab Eufemia Copeland MD CHEMISTRY ORDERABL ES Performing Organization Address [facility] de Phone Number [facility] [place] [address] * Heparin (unfractionated) Level (07/08/2023 12:00 AM EDT) UF Heparin 0.22 IU/mL [facility] Comment: [...] MD HEMATOLOGY ORDERABLE S Performing Organization Address [facility] Co de Phone Number [facility] [place] [address] * Specimen to Pathology (07/07/2023 2:55 PM EDT) AP Specimen 07/07/2023 2:55 PM EDT 07/07/2023 2:55 PM EDT Narrative [facility] - 07/07/2023 2:55 PM EDT Specimen requisition ordered. ??Separate Pathology report to follow Terrence Keating MD PATHOLOGY/CYTOLOGY O RDERABLES Performing Organization Address [facility]/ZIP Co de Phone Number [facility] [place] [address] * Specimen to Pathology (07/07/2023 2:38 PM EDT) AP Specimen 07/07/2023 2:38 PM EDT 07/07/2023 2:38 PM EDT Narrative [facility] - 07/07/2023 2:38 PM EDT Specimen requisition ordered. ??Separate Pathology report to follow Terrence Keating MD PATHOLOGY/CYTOLOGY O RUMA Performing Organization Address [facility] [place] [address] * Specimen to Pathology (07/07/2023 2:38 PM EDT) AP Specimen 07/07/2023 2:38 PM EDT 07/07/2023 2:38 PM EDT Narrative [facility] - 07/07/2023 2:38 PM EDT Specimen requisition ordered. ??Separate Pathology report to follow Terrence Keating MD PATHOLOGY/CYTOLOGY O RUMA Performing Organization Address [facility] Co [place] [address] * Surgical Pathology Report (07/07/2023 2:25 PM EDT) Pathologist [facility] Final Diagnosis [id number] ? [facility]; A The signing pathologist has (i) examined [...] [facility] [place] Dept. of Pathology, [place] [address] Human Resources Recruiter: Vangie Lu MD, FCAP, ??CLIA Certificate: [id number] SPECIMEN(S) SUBMITTED A - duodenal biopsies rule [...] EDT Lashonda Villa MD PATHOLOGY/CYTOLOGY O RDERABLES [facility] [place] [address] * COLONOSCOPY (07/07/2023 1:39 PM EDT) COLONOSCOPY [facility] Endoscopy Procedure Date: 07/07/2023 1:39 PM ? Patient Name: Loida Roque ? N: [id number] ? Date of : 1970 ? Age: 53 ? Order #: [id number] ? Instrument Name: [id number] ? Procedure: ? Colonoscopy Indications: ? Abdominal pain, Diarrhea Providers: ? Lashonda Villa MD, Graham ? Systrom, Mercedes Toledo, Bouchra Recinos MD: [...] ? was evaluated using the BBPS ? ([place] Bowel Preparation Scale) ? with scores of: [...] Procedure Code(s): ? --- Professional --- ? 55552, Colonoscopy, flexible; with ? biopsy, single or multiple CPT copyright 2021 [employer]. All rights reserved. The codes documented in this report are preliminary and upon manager financial planning review may be revised to meet current [...] GENERAL SURGICAL ORD ERABLES Performing Organization Address City/[facility]/ZIP Co de Phone Number [employer] * Shiga Toxin Detection (07/07/2023 12:10 PM EDT) Shiga Toxin Assay EIA Negative for Shiga Toxin 1 EIA Negative for Shiga Toxin 2 [facility] Stool 07/07/2023 12:1 0 PM EDT 07/07/2023 12:53 PM EDT Narrative Resulting Agency Comment Spec In Lab Ailyn Irvin MD MICROBIOLOGY - GENER AL ORDERABLES Performing Organization Address City/[facility]/ZIP Co de Phone Number [facility] [place] [address] * Campylobacter Antigen (07/07/2023 12:10 PM EDT) Campylobacter Ag Immunoassay Negative for Campylobacter Antigen [facility] Stool 07/07/2023 12:1 0 PM EDT 07/07/2023 12:53 PM EDT Narrative Resulting Agency Comment Spec In Lab Ailyn Irvin MD MICROBIOLOGY - GENER AL ORDERABLES Performing Organization Address City/[facility]/ZIP Co de Phone Number [facility] [place] [address] * Stool culture (07/07/2023 12:10 PM EDT) Stool Culture No enteric pathogens isolated [facility] Stool 07/07/2023 12:1 0 PM EDT 07/07/2023 12:53 PM EDT Narrative Resulting Agency Comment Spec In Lab Ailyn Irvin MD MICROBIOLOGY - GENER AL ORDERABLES Performing Organization Address [facility] de Phone Number [facility] [place] [address] * (ABNORMAL) Differential, Automated (07/07/2023 3:51 AM EDT) Neutrophil % 58.9 % [facility] Neutrophil Absolute 4.67 1.70 - 6.10 x10(3)/mc L [facility] Lymph % 24.8 % [facility] Lymphocytes Abs 2.0 0.9 - 3.2 x10(3)/mc L [facility] Monocyte % 9.4 % [facility] Monocyte Abs 0.7 0.3 - 0.9 x10(3)/mc L [facility] Eos % 6.1 % [facility] Eosinophils Abs 0.5(H) 0.0 - 0.4 x10(3)/mc L [facility] Basophil % 0.5 % [facility] Baso Absolute 0.0 0.0 - [...] HEMATOLOGY ORDERABLE S [facility] [place] [address] * Hemogram (07/07/2023 3:51 AM EDT) White Blood Cell 7.9 4.0 - 9.5 x10(3)/[facility] Red Blood Cell 4.42 4.00 - 5.21 x10(6)/[facility] Hemoglobin 13.8 11.7 - 15.5 g/dL [facility] Hematocrit 41.0 35.7 - 45.8 % [facility] Mean Cell Volume 92.8 82.6 - 94.4 fL [facility] Mean Cell Hemoglobin 31.2 27.1 - 32.0 pg [facility] Mean Cell Hemoglobin Concentration 33.7 31.7 - 35.0 g/dL [facility] Platelet 255 145 - 357 x10(3)/[facility] RDW Standard Deviation 44.8 37.0 - 46.0 [facility] RDW coefficient of variation 13.2 11.5 - 14.1 % [facility] Mean Platelet Volume 10.6 7.6 - 12.9 fL [facility] NRBC% auto 0.0 % [facility] NRBC Absolute 0.000 0.000 - 0.000 x10(3)/[facility] Blood 07/07/2023 3:51 AM EDT 07/07/2023 4:08 AM EDT Narrative Resulting Agency Comment Spec In Lab Terrence Keating MD HEMATOLOGY ORDERABLE S Performing Organization Address [facility] Co de Phone Number [facility] [place] [address] * Heparin (unfractionated) Level (07/07/2023 3:51 AM EDT) UF Heparin 0.33 IU/mL [facility] Comment: [...] MD HEMATOLOGY ORDERABLE S Performing Organization Address [facility]/ZIP Co de Phone Number [facility] [place] [address] * (ABNORMAL) Basic Metabolic Panel (non-fasting) (07/07/2023 [...] CHEMISTRY ORDERABL ES [facility] [place] [address] * Phosphorus (07/07/2023 3:51 AM EDT) Phosphorus 4.0 2.5 - 4.5 mg/dL [facility] Blood 07/07/2023 3:51 AM EDT 07/07/2023 4:08 AM EDT Narrative Resulting Agency Comment Spec In Lab Eufemia Copeland MD CHEMISTRY ORDERABL ES Performing Organization Address [facility] Co de Phone Number [facility] [place] [address] * Magnesium (07/07/2023 3:51 AM EDT) [facility] Magnesium 0.87 0.69 - 1.07 mmol/L [facility] Blood 07/07/2023 3:51 AM EDT 07/07/2023 4:08 AM EDT Narrative Resulting Agency Comment Spec In Lab Eufemia Copeland MD CHEMISTRY ORDERABL ES Performing Organization Address [facility] Phone Number [facility] [place] [address] * Hepatic Function Panel (07/07/2023 3:51 AM EDT) [facility] Protein, Total 7.5 6.1 - 8.0 [...] Irvin MD CHEMISTRY ORDERABLES Performing Organization Address [facility] Co de Phone Number [facility] [place] [address] * Giardia/Cryptosporidium Antigens (MC/CGP/APD/NLH) (07/07/2023 12:38 AM EDT) Giardia Antigen Negative Negative [facility] Comment:Examination for othe r intestinal parasites requires foreign travel history. Cryptosporidium Antigen Negative Negative [facility] Stool 07/07/2023 12:3 8 AM EDT 07/07/2023 7:56 AM EDT Narrative Resulting Agency Comment Spec In Lab Ailyn Irvin MD MICROBIOLOGY - GENER AL ORDERABLES [facility] [place] [address] * Hepatic Function Panel (07/06/2023 3:41 PM [...] Keating MD CHEMISTRY ORDERABLES Performing Organization Address City/[facility]/ZIP Co de Phone Number [facility] [place] [address] * Hepatic Function Panel (07/06/2023 3:54 AM [...] Not Perf 0.0 - 0.[address] [facility] Blood Venous Draw / Unknown 07/06/2023 3:54 AM EDT 07/06/2023 4:18 AM EDT Narrative Resulting Agency Comment Spec In Lab Terrence Keating MD CHEMISTRY ORDERABLES [facility] [place] [address] * (ABNORMAL) Differential, Automated (07/06/2023 3:54 AM EDT) Neutrophil % 56.6 % [facility] Neutrophil Absolute 4.34 1.70 - 6.10 x10(3)/mc L [facility] Lymph % 26.1 % [facility] Lymphocytes Abs 2.0 0.9 - 3.2 x10(3)/mc L [facility] Monocyte % 9.6 % [facility] Monocyte Abs 0.7 0.3 - 0.9 x10(3)/mc L [facility] Eos % 6.6 % [facility] Eosinophils Abs 0.5(H) 0.0 - 0.4 x10(3)/mc L [facility] Basophil % 0.7 % [facility] Baso Absolute 0.0 0.0 - [...] HEMATOLOGY ORDERABLE S [facility] [place] [address] * (ABNORMAL) Hemogram (07/06/2023 3:54 AM EDT) White Blood Cell 7.7 4.0 - 9.5 x10(3)/mc L [facility] Red Blood Cell 4.62 4.00 - 5.21 x10(6)/mc L [facility] Hemoglobin 14.7 11.7 - 15.5 g/dL [facility] Hematocrit 43.8 35.7 - 45.8 % [facility] Mean Cell Volume 94.8(H) 82.6 - 94.4 fL [facility] Mean Cell Hemoglobin 31.8 27.1 - 32.0 pg [facility] Mean Cell Hemoglobin Concentration 33.6 31.7 - 35.0 g/dL [facility] Platelet 243 145 - 357 x10(3)/mc L [facility] RDW Standard Deviation 47.2(H) 37.0 - 46.0 fL [facility] RDW coefficient of variation 13.5 11.5 - 14.1 % [facility] Mean Platelet Volume 10.4 7.6 - 12.9 fL [facility] NRBC% auto 0.0 % [facility] NRBC Absolute 0.000 0.000 - 0.000 x10(3)/mc L [facility] Blood 07/06/2023 3:54 AM EDT 07/06/2023 4:12 AM EDT Narrative Resulting Agency Comment Spec In Lab Terrence Keating MD HEMATOLOGY ORDERABLE S [facility] [place] [address] * (ABNORMAL) Basic Metabolic Panel (non-fasting) (07/06/2023 [...] Performing Organization Address [facility] Co de Phone Number [facility] [place] [address] * Phosphorus (07/06/2023 3:54 AM EDT) Phosphorus 4.5 2.5 - 4.5 mg/dL [facility] Blood 07/06/2023 3:54 AM EDT 07/06/2023 4:18 AM EDT Narrative Resulting Agency Comment Spec In Lab Eufemia Copeland MD CHEMISTRY ORDERABL ES Performing Organization Address [facility] Co de Phone Number [facility] [place] [address] * Magnesium (07/06/2023 3:54 AM EDT) Magnesium 0.97 0.69 - 1.07 mmol/L [facility] Blood 07/06/2023 3:54 AM EDT 07/06/2023 4:18 AM EDT Narrative Resulting Agency Comment Spec In Lab Eufemia Copeland MD CHEMISTRY ORDERABL ES Performing Organization Address [facility] Co de Phone Number [facility] [place] [address] * Heparin (unfractionated) Level (07/06/2023 3:54 AM EDT) UF Heparin 0.31 IU/mL [facility] Comment: [...] MD HEMATOLOGY ORDERABLE S Performing Organization Address [facility]/ZIP Co de Phone Number [facility] [place] [address] * Amylase (07/05/2023 5:44 PM EDT) Amylase 35 28 - 100 unit/L [facility] Blood 07/05/2023 5:44 PM EDT 07/05/2023 6:00 PM EDT Narrative Resulting Agency Comment Spec In Lab Terrence Keating MD CHEMISTRY ORDERABLES Performing Organization Address [facility] Co de Phone Number [facility] [place] [address] * Lipase (07/05/2023 5:44 PM EDT) Lipase 17 0 - 60 unit/L [facility] Blood 07/05/2023 5:44 PM EDT 07/05/2023 6:00 PM EDT Narrative Resulting Agency Comment Spec In Lab Terrence Keating MD CHEMISTRY ORDERABLES Performing Organization Address [facility]/ZIP Co de Phone Number [facility] [place] [address] * (ABNORMAL) Basic Metabolic Panel (non-fasting) (07/05/2023 [...] MD CHEMISTRY ORDERABLES [facility] [place] [address] * Duplex Study Visceral Arteries, Comp (07/05/2023 9:46 AM EDT) VB Text Report Department: Vascular Surgery Lab Patient: [id number] (LOIDA ROQUE) CPT: [id number] Referring Physician: TERRENCE KEATING ?? Phone: Indications: [...] ?Bi-Triphasic ?101 ?11 ?? Hepatic Artery ? [place]ic ? 123 ?23 ?? Splenic Artery ? [place]ic ? 122 ?24 ?? Inf Mes Artery [...] 5:05 AM EDT) Neutrophil % 63.0 % [facility] Neutrophil Absolute 5.59 1.70 - 6.10 x10(3)/[facility] Lymph % 22.4 % [facility] Lymphocytes Abs 2.0 0.9 - 3.2 x10(3)/[facility] Monocyte % 9.7 % [facility] Monocyte Abs 0.9 0.3 - 0.9 x10(3)/[facility] Eos % 4.1 % [facility] Eosinophils Abs 0.4 0.0 - 0.4 x10(3)/[facility] Basophil % 0.6 % [facility] Baso Absolute 0.0 0.0 - 0.1 x10(3)/[facility] Immature Gran % 0.20 % MAYO [...] HEMATOLOGY ORDERABLE S [facility] [place] [address] * (ABNORMAL) Hemogram (07/05/2023 5:05 AM EDT) [...] Standard Deviation 47.1(H) 37.0 - 46.0 fL [facility] RDW coefficient of variation 13.7 11.5 - 14.1 % [facility] Mean Platelet Volume 10.8 7.6 - 12.9 fL [facility] NRBC% auto 0.0 % [facility] NRBC Absolute 0.000 0.000 - 0.000 x10(3)/mc L [facility] Blood 07/05/2023 5:05 AM EDT 07/05/2023 5:17 AM EDT Narrative Resulting Agency Comment Spec In Lab Terrence Keating MD HEMATOLOGY ORDERABLE S Performing Organization Address City/[facility]/ZIP Co de Phone Number [facility] [place] [address] * Heparin (unfractionated) Level (07/05/2023 5:05 AM EDT) UF Heparin 0.35 IU/mL [facility] Comment: [...] MD HEMATOLOGY ORDERABLE S Performing Organization Address City/[facility]/ZIP Co de Phone Number [facility] [place] [address] * (ABNORMAL) Basic Metabolic Panel (non-fasting) (07/05/2023 5:05 AM EDT) Glucose 114 65 - 199 mg/dL MAY[facility] [...] CHEMISTRY ORDERABL ES [facility] [place] [address] * (ABNORMAL) Phosphorus (07/05/2023 5:05 AM EDT) Phosphorus 5.0(H) 2.5 - 4.5 mg/dL [facility] Blood 07/05/2023 5:05 AM EDT 07/05/2023 5:17 AM EDT Narrative Resulting Agency Comment Spec In Lab Eufemia Copeland MD CHEMISTRY ORDERABL ES Performing Organization Address [facility] Co de Phone Number [facility] [place] [address] * Magnesium (07/05/2023 5:05 AM EDT) Magnesium 1.01 0.69 - 1.07 mmol/L [facility] Blood 07/05/2023 5:05 AM EDT 07/05/2023 5:17 AM EDT Narrative Resulting Agency Comment Spec In Lab Eufemia Copeland MD CHEMISTRY ORDERABL ES Performing Organization Address [facility] Co de Phone Number [facility] [place] [address] * EKG 12 Lead (07/04/2023 11:41 AM EDT) Ventricular rate 76 BPM MUSE SYSTEM Atrial Rate 76 BPM MUSE SYSTEM P-R Interval 174 ms MUSE SYSTEM QRS Duration 88 ms MUSE SYSTEM Q-T Interval 450 ms MUSE SYSTEM QTC Calculated (Bezet) 506 ms MUSE SYSTEM Calculated P [place] 36 degrees MUSE SYSTEM Calculated R [place] 35 degrees MUSE SYSTEM Calculated T [place] 37 degrees MUSE SYSTEM INTERPRETATION Normal sinus rhythm Possible Left atrial enlargement Septal infarct , age undetermined Prolonged QT Abnormal ECG When compared with ECG of 03-JUL-2023 21:36, ST no longer depressed in Anterior leads Nonspecific T wave abnormality now evident in Anterior leads Confirmed by MD Henderson Katharine ([id number]) on 07/05/2023 6:21:29 AM MUSE SYSTEM 07/04/2023 11:4 1 AM EDT 07/05/2023 6:21 AM EDT Lisa Beck MD ECG ORDERABLES Performing Organization Address City/[facility]/ZIP Co de Phone Number MUSE SYSTEM * Differential, Automated (07/04/2023 3:47 AM EDT) Neutrophil % 63.5 % [facility] Neutrophil Absolute 5.19 1.70 - 6.10 x10(3)/[facility] Lymph % 24.4 % [facility] Lymphocytes Abs 2.0 0.9 - 3.2 x10(3)/[facility] Monocyte % 8.1 % [facility] Monocyte Abs 0.7 0.3 - 0.9 x10(3)/[facility] Eos % 3.4 % [facility] Eosinophils Abs 0.3 0.0 - 0.4 x10(3)/[facility] Basophil % 0.4 % [facility] Baso Absolute 0.0 0.0 - 0.1 x10(3)/[facility] Immature Gran % 0.20 % [facility] [...] 0.04 x10(3)/[facility] LABORATORY Blood 07/04/2023 3:47 AM EDT 07/04/2023 4:15 AM EDT Narrative Resulting Agency Comment Spec In Lab Terrence Keating MD HEMATOLOGY ORDERABLE S [facility] [place] [address] * (ABNORMAL) Hemogram (07/04/2023 3:47 AM EDT) White Blood Cell 8.2 4.0 - 9.5 x10(3)/[facility] LABORATORY Red Blood Cell 4.26 4.00 - 5.21 x10(6)/mc L [facility] Hemoglobin 13.5 [...] [facility] NRBC% auto 0.0 % [facility] NRBC Absolute 0.000 0.000 - 0.000 x10(3)/mc L [facility] Blood 07/04/2023 3:47 AM EDT 07/04/2023 4:15 AM EDT Narrative Resulting Agency Comment Spec In Lab Terrence Keating MD HEMATOLOGY ORDERABLE S Performing Organization Address City/State/[facility] Co de Phone Number [facility] [place] [address] * Heparin (unfractionated) Level (07/04/2023 3:47 AM EDT) UF Heparin 0.44 IU/mL [facility] Comment: [...] HEMATOLOGY ORDERABLE S [facility] [place] [address] * (ABNORMAL) Basic Metabolic Panel (non-fasting) (07/04/2023 [...] Performing Organization Address [facility] Co de Phone Number [facility] [place] [address] * (ABNORMAL) Phosphorus (07/04/2023 3:47 AM EDT) Phosphorus 4.9(H) 2.5 - 4.5 mg/dL [facility] Blood 07/04/2023 3:47 AM EDT 07/04/2023 4:15 AM EDT Narrative Resulting Agency Comment Spec In Lab Eufemia Copeland MD CHEMISTRY ORDERABL ES Performing Organization Address [facility] Co de Phone Number [facility] [place] [address] * Magnesium (07/04/2023 3:47 AM EDT) Magnesium 1.05 0.69 - 1.07 mmol/L [facility] Blood 07/04/2023 3:47 AM EDT 07/04/2023 4:15 AM EDT Narrative Resulting Agency Comment Spec In Lab Eufemia Copeland MD CHEMISTRY ORDERABL ES Performing Organization Address [facility] Co de Phone Number [facility] [place] [address] * EKG 12 Lead (07/03/2023 9:36 PM EDT) Ventricular rate 61 BPM MUSE SYSTEM Atrial Rate 61 BPM MUSE SYSTEM P-R Interval 188 ms MUSE SYSTEM QRS Duration 88 ms MUSE SYSTEM Q-T Interval 512 ms MUSE SYSTEM QTC Calculated (Bezet) 515 ms MUSE SYSTEM Calculated P [place] 56 degrees MUSE SYSTEM Calculated R [place] 69 degrees MUSE SYSTEM Calculated T [place] 29 degrees MUSE SYSTEM INTERPRETATION Normal sinus [...] * Magnesium (07/03/2023 6:00 PM EDT) Pathologist [facility] Magnesium 0.89 0.69 - 1.07 mmol/L [facility] Blood 07/03/2023 6:00 PM EDT 07/03/2023 6:07 PM EDT Narrative Resulting Agency Comment Spec In Lab Lino Calles MD CHEMISTRY ORDERABLES [facility] [place] [address] * (ABNORMAL) Basic Metabolic Panel (non-fasting) (07/03/2023 6:00 PM EDT) Pathologist [facility] Glucose 116 65 - 199 mg/dL MAY[facility] [...] MD CHEMISTRY ORDERABLES [facility] [place] [address] * XR Chest One View (07/03/2023 3:18 PM EDT) WORKSTATION ID [id number] RAD Anatomical Region Laterality Modality Chest N/A Digital Radiogra phy Impressions 07/03/2023 3:27 PM EDT No pulmonary edema or pleural effusion Thank you for letting us participate in the care of this patient. ??If you are a health care provider and have any questions regarding this report, please contact the number below. ??For patients who have questions please contact the health care director rn that requested your imaging first. ? Electronically signed by: Itz Hayward MD, [facility] ??([phone]), at 07/03/2023 3:27 PM Narrative 07/03/2023 3:27 [...] who have questions please contactthe health care director rn that requested your imaging first. Lino Calles MD IMG DX ORDERABLES * Arterial Duplex Leg, Unil (07/03/2023 9:34 AM EDT) VB Text Report Department: Vascular Surgery Lab Patient: [id number] (LOIDA ROQUE) CPT: 27052 Referring Physician: LINO CALLES ?? Phone: Indications: [...] 3:07 AM EDT) Neutrophil % 67.2 % [facility] Neutrophil Absolute 5.51 1.70 - 6.10 x10(3)/mcL [facility] Lymph % 20.7 % [facility] Lymphocytes Abs 1.7 0.9 - 3.2 x10(3)/[facility] LABORATORY Monocyte % 7.7 % [facility] Monocyte Abs 0.6 0.3 - 0.9 x10(3)/[facility] LABORATORY Eos % 3.7 % [facility] Eosinophils Abs 0.3 0.0 - 0.4 x10(3)/[facility] LABORATORY Basophil % 0.5 % [facility] Baso Absolute 0.0 0.0 - 0.1 x10(3)/[facility] LABORATORY Immature Gran % 0.20 % MAY[facility] [...] 0.04 x10(3)/[facility] LABORATORY Blood 07/03/2023 3:07 AM EDT 07/03/2023 3:15 AM EDT Narrative Resulting Agency Comment Spec In Lab Terrence Keating MD HEMATOLOGY ORDERABLE S Performing Organization Address City/State/[facility] Co de Phone Number [facility] [place] [address] * (ABNORMAL) Hemogram (07/03/2023 3:07 AM EDT) [...] [facility] NRBC% auto 0.0 % [facility] NRBC Absolute 0.000 0.000 - 0.000 x10(3)/mc L [facility] Blood 07/03/2023 3:07 AM EDT 07/03/2023 3:15 AM EDT Narrative Resulting Agency Comment Spec In Lab Terrence Keating MD HEMATOLOGY ORDERABLE S [facility] [place] [address] * Heparin (unfractionated) Level (07/03/2023 3:07 AM EDT) UF Heparin 0.49 IU/mL [facility] Comment: [...] HEMATOLOGY ORDERABLE S [facility] [place] [address] * (ABNORMAL) Basic Metabolic Panel (non-fasting) (07/03/2023 [...] Performing Organization Address [facility] Co de Phone Number [facility] [place] [address] * Phosphorus (07/03/2023 3:07 AM EDT) Phosphorus 3.6 2.5 - 4.5 mg/dL [facility] Blood 07/03/2023 3:07 AM EDT 07/03/2023 3:15 AM EDT Narrative Resulting Agency Comment Spec In Lab Eufemia Copeland MD CHEMISTRY ORDERABL ES Performing Organization Address [facility] Co de Phone Number [facility] [place] [address] * Magnesium (07/03/2023 3:07 AM EDT) Magnesium 0.93 0.69 - 1.07 mmol/L [facility] Blood 07/03/2023 3:07 AM EDT 07/03/2023 3:15 AM EDT Narrative Resulting Agency Comment Spec In Lab Eufemia Copeland MD CHEMISTRY ORDERABL ES Performing Organization Address [facility] Co de Phone Number [facility] [place] [address] * Heparin (unfractionated) Level (07/02/2023 8:58 PM EDT) UF Heparin 0.60 IU/mL [facility] Comment: [...] HEMATOLOGY ORDERABLE S [facility] [place] [address] * VS Arteriogram Mesenteric Vascular Surgery (07/02/2023 [...] anesthetic: 10 cc 1% lidocaine Heparin: Yes [id number] ?? Units Protamine: No ??mg Antibiotics: Ancef [...] exchanged the sheath for a 7 Maltese horse trekking guide steerable sheath over a stiff wire. ??A Glidewire and Kumpe catheter were used to selectively cannulate the superior mesenteric artery. ??Direct angiography of the superior mesenteric artery was performed, confirming the results of the nonselective aortography performed. ??The lesion was predilated with a 4 mm x 40 mm Mesa balloon, and then a 6 mm X [...] MD 07/07/2023 10:48 AM Ailyn Irvin MD [facility] [place] ORDER[place]LES * Differential, Automated (07/02/2023 3:58 AM EDT) Neutrophil % 61.3 % [facility] Neutrophil Absolute 4.67 1.70 - 6.10 x10(3)/[facility] LABORATORY Lymph % 27.6 % [facility] Lymphocytes Abs 2.1 0.9 - 3.2 x10(3)/[facility] LABORATORY Monocyte % 6.4 % [facility] Monocyte Abs 0.5 0.3 - 0.9 x10(3)/[facility] LABORATORY Eos % 3.9 % [facility] Eosinophils Abs 0.3 0.0 - 0.4 x10(3)/[facility] LABORATORY Basophil % 0.5 % [facility] Baso Absolute 0.0 0.0 - 0.1 x10(3)/[facility] LABORATORY Immature Gran % 0.30 % MAY[facility] [...] 0.04 x10(3)/[facility] LABORATORY Blood 07/02/2023 3:58 AM EDT 07/02/2023 4:14 AM EDT Narrative Resulting Agency Comment Spec In Lab Terrence Keating MD HEMATOLOGY ORDERABLE S [facility] [place] [address] * (ABNORMAL) Hemogram (07/02/2023 3:58 AM EDT) White Blood Cell 7.6 4.0 - 9.5 x10(3)/mc L [facility] Red Blood Cell 4.12 4.00 - 5.21 x10(6)/ L [facility] Hemoglobin 12.9 11.7 - [...] Platelet 200 145 - 357 x10(3)/mc L [facility] RDW Standard Deviation 47.4(H) 37.0 - 46.0 fL [facility] RDW coefficient of variation 13.3 11.5 - 14.1 % [facility] Mean Platelet Volume 10.8 7.6 - 12.9 fL [facility] NRBC% auto 0.0 % [facility] NRBC Absolute 0.000 0.000 - 0.000 x10(3)/mc L [facility] Blood 07/02/2023 3:58 AM EDT 07/02/2023 4:14 AM EDT Narrative Resulting Agency Comment Spec In Lab Terrence Keating MD HEMATOLOGY ORDERABLE S [facility] [place] [address] * Heparin (unfractionated) Level (07/02/2023 3:58 AM EDT) UF Heparin 0.57 IU/mL [facility] Comment: [...] HEMATOLOGY ORDERABLE S [facility] [place] [address] * (ABNORMAL) Basic Metabolic Panel (non-fasting) (07/02/2023 [...] Performing Organization Address [facility] Co de Phone Number [facility] [place] [address] * Phosphorus (07/02/2023 3:58 AM EDT) Phosphorus 3.8 2.5 - 4.5 mg/dL [facility] Blood 07/02/2023 3:58 AM EDT 07/02/2023 4:14 AM EDT Narrative Resulting Agency Comment Spec In Lab Eufemia Copeland MD CHEMISTRY ORDERABL ES Performing Organization Address [facility] de Phone Number [facility] [place] [address] * Magnesium (07/02/2023 3:58 AM EDT) Magnesium 0.95 0.69 - 1.07 mmol/L [facility] Blood 07/02/2023 3:58 AM EDT 07/02/2023 4:14 AM EDT Narrative Resulting Agency Comment Spec In Lab Eufemia Copeland MD CHEMISTRY ORDERABL ES Performing Organization Address [facility] Co de Phone Number [facility] [place] [address] * EKG 12 Lead (07/01/2023 12:08 PM EDT) Ventricular rate 48 BPM MUSE SYSTEM Atrial Rate 48 BPM MUSE SYSTEM P-R Interval 192 ms MUSE SYSTEM QRS Duration 92 ms MUSE SYSTEM Q-T Interval 474 ms MUSE SYSTEM QTC Calculated (Bezet) 423 ms MUSE SYSTEM Calculated P [place] 32 degrees MUSE SYSTEM Calculated R [place] 45 degrees MUSE SYSTEM Calculated T [place] 0 degrees MUSE SYSTEM INTERPRETATION Sinus bradycardia [...] 2:56 AM EDT) Neutrophil % 50.5 % [facility] Neutrophil Absolute 3.47 1.70 - 6.10 x10(3)/[facility] LABORATORY Lymph % 36.5 % [facility] Lymphocytes Abs 2.5 0.9 - 3.2 x10(3)/[facility] LABORATORY Monocyte % 7.7 % [facility] Monocyte Abs 0.5 0.3 - 0.9 x10(3)/[facility] LABORATORY Eos % 4.5 % [facility] Eosinophils Abs 0.3 0.0 - 0.4 x10(3)/[facility] LABORATORY Basophil % 0.7 % [facility] Baso Absolute 0.0 0.0 - 0.1 x10(3)/[facility] LABORATORY Immature Gran % 0.10 % MAY[facility] [...] 0.04 x10(3)/[facility] LABORATORY Blood 07/01/2023 2:56 AM EDT 07/01/2023 3:22 AM EDT Narrative Resulting Agency Comment Spec In Lab Terrence Keating MD HEMATOLOGY ORDERABLE S [facility] [place] [address] * (ABNORMAL) Hemogram (07/01/2023 2:56 AM EDT) White Blood Cell 6.9 4.0 - 9.5 x10(3)/[facility] LABORATORY Red Blood Cell 4.04 4.00 - 5.21 x10(6)/[facility] LABORATORY Hemoglobin 12.8 11.7 - [...] HOSPITAL LABORATORY Platelet 224 145 - 357 x10(3)/[facility] LABORATORY RDW Standard Deviation 47.8(H) 37.0 - 46.0 [facility] LABORATORY RDW coefficient of variation 13.3 11.5 - 14.1 % [facility] Mean Platelet Volume 11.1 7.6 - 12.9 [facility] LABORATORY NRBC% auto 0.0 % [facility] NRBC Absolute 0.000 0.000 - 0.000 x10(3)/ L [facility] Blood 07/01/2023 2:56 AM EDT 07/01/2023 3:22 AM EDT Narrative Resulting Agency Comment Spec In Lab Terrence Keating MD HEMATOLOGY ORDERABLE S Performing Organization Address [facility]/ZIP Co de Phone Number [facility] [place] [address] * Heparin (unfractionated) Level (07/01/2023 2:56 AM EDT) Pathologist [facility] UF Heparin 0.56 IU/mL [facility] Comment: [...] MD HEMATOLOGY ORDERABLE S Performing Organization Address [facility]/ZIP Co de Phone Number [facility] [place] [address] * (ABNORMAL) Basic Metabolic Panel (non-fasting) (07/01/2023 2:56 AM EDT) [facility] Glucose 95 65 - 199 mg/dL MAY[facility] [...] Performing Organization Address [facility] Co de Phone Number [facility] [place] [address] * Phosphorus (07/01/2023 2:56 AM EDT) Phosphorus 4.1 2.5 - 4.5 mg/dL [facility] Blood 07/01/2023 2:56 AM EDT 07/01/2023 3:22 AM EDT Narrative Resulting Agency Comment Spec In Lab Eufemia Copeland MD CHEMISTRY ORDERABL ES Performing Organization Address City/[facility]/ZIP Co de Phone Number [facility] [place] [address] * Magnesium (07/01/2023 2:56 AM EDT) [facility] Magnesium 0.95 0.69 - 1.07 mmol/L [facility] Blood 07/01/2023 2:56 AM EDT 07/01/2023 3:22 AM EDT Narrative Resulting Agency Comment Spec In Lab Eufemia Copeland MD CHEMISTRY ORDERABL ES Performing Organization Address [facility]/ZIP Co de Phone Number [facility] [place] [address] * Heparin (unfractionated) Level (06/30/2023 9:24 AM EDT) [facility] UF Heparin 0.62 IU/mL [facility] Comment: [...] MD HEMATOLOGY ORDERABLE S Performing Organization Address City/[facility]/ZIP Co de Phone Number [facility] [place] [address] * Differential, Automated (06/30/2023 3:14 AM EDT) Pathologist [facility] Neutrophil % 49.5 % [facility] Neutrophil Absolute 3.96 1.70 - 6.10 x10(3)/mcL [facility] Lymph % 36.6 % [facility] Lymphocytes Abs 2.9 0.9 - 3.2 x10(3)/[facility] LABORATORY Monocyte % 8.6 % [facility] Monocyte Abs 0.7 0.3 - 0.9 x10(3)/[facility] LABORATORY Eos % 4.1 % [facility] Eosinophils Abs 0.3 0.0 - 0.4 x10(3)/[facility] LABORATORY Basophil % 0.8 % [facility] Baso Absolute 0.1 0.0 - 0.1 x10(3)/[facility] LABORATORY Immature Gran % 0.40 % [facility] Comment: Immature granulocytes(IG's)percentage and absolute count will include metamyelocytes, myelocytes, and promyelocytes. Blood smears from CBCs yielding IG's will be scanned manually for concordance. If this scan disagrees with the automated IG or if promyelocytes are noted, a manual differential will be performed. Immature Gran Absolute 0.03 0.00 - 0.04 x10(3)/[facility] LABORATORY Blood 06/30/2023 3:14 AM EDT 06/30/2023 3:23 AM EDT Narrative Resulting Agency Comment Spec In Lab Terrence Keating MD HEMATOLOGY ORDERABLE S [facility] [place] [address] * Hemogram (06/30/2023 3:14 AM EDT) White Blood Cell 8.0 4.0 - 9.5 x10(3)/[facility] LABORATORY Red Blood Cell 4.22 4.00 - 5.21 x10(6)/[facility] LABORATORY Hemoglobin 13.1 11.7 - 15.5 g/dL [facility] RDW Standard Deviation 45.3 37.0 - 46.0 fL [facility] RDW coefficient of variation 13.3 11.5 - 14.1 % [facility] Mean Platelet Volume 11.0 7.6 - 12.9 fL [facility] NRBC% auto 0.0 % [facility] NRBC Absolute 0.000 0.000 - 0.000 x10(3)/[facility] LABORATORY Blood 06/30/2023 3:14 AM EDT 06/30/2023 3:23 AM EDT Narrative Resulting Agency Comment Spec In Lab Terrence Keating MD HEMATOLOGY ORDERABLE S [facility] [place] [address] * Heparin (unfractionated) Level (06/30/2023 3:14 AM EDT) UF Heparin 0.70 IU/mL [facility] Comment: [...] HEMATOLOGY ORDERABLE S [facility] [place] [address] * (ABNORMAL) Basic Metabolic Panel (non-fasting) (06/30/2023 [...] Performing Organization Address [facility] de Phone Number [facility] [place] [address] * Phosphorus (06/30/2023 3:14 AM EDT) Phosphorus 4.4 2.5 - 4.5 mg/dL [facility] Blood 06/30/2023 3:14 AM EDT 06/30/2023 3:23 AM EDT Narrative Resulting Agency Comment Spec In Lab Eufemia Copeland MD CHEMISTRY ORDERABL ES Performing Organization Address [facility] Phone Number [facility] [place] [address] * Magnesium (06/30/2023 3:14 AM EDT) Magnesium 0.94 0.69 - 1.07 mmol/L [facility] Blood 06/30/2023 3:14 AM EDT 06/30/2023 3:23 AM EDT Narrative Resulting Agency Comment Spec In Lab Eufemia Copeland MD CHEMISTRY ORDERABL ES Performing Organization Address [facility] de Phone Number [facility] [place] [address] * Heparin (unfractionated) Level (06/29/2023 8:47 PM EDT) UF Heparin 0.75 IU/mL [facility] Comment: [...] MD HEMATOLOGY ORDERABLE S Performing Organization Address [facility] Co de Phone Number [facility] [place] [address] * EKG 12 Lead (06/29/2023 12:55 PM EDT) Ventricular rate 53 BPM MUSE SYSTEM Atrial Rate 53 BPM MUSE SYSTEM P-R Interval 196 ms MUSE SYSTEM QRS Duration 90 ms MUSE SYSTEM Q-T Interval 564 ms MUSE SYSTEM QTC Calculated (Bezet) 529 ms MUSE SYSTEM Calculated P [place] 30 degrees MUSE SYSTEM Calculated R [place] 53 degrees MUSE SYSTEM Calculated T [place] 5 degrees MUSE SYSTEM INTERPRETATION Sinus bradycardia Marked ST abnormality, possible inferior subendocardial injury Prolonged QT Abnormal ECG When compared with ECG of 26-JUN-2023 06:04, Nonspecific T wave abnormality no longer evident in Anterolateral leads QT has lengthened Confirmed by MD Angelo Danette ([id number]) on 06/29/2023 8:34:43 PM MUSE SYSTEM 06/29/2023 12:5 5 PM EDT 06/29/2023 8:34 PM EDT Terrence Keating MD ECG ORDERABLES Performing Organization Address [facility] Co de Phone Number MUSE SYSTEM * (ABNORMAL) Heparin (unfractionated) Level (06/29/2023 11:34 AM EDT) UF Heparin 1.41(Crit ical) IU/mL [facility] HEMATOLOGY ORDERABLE S Performing Organization Address City/State/[facility] Co de Phone Number [facility] [place] [address] * Differential, Automated (06/29/2023 2:39 AM EDT) Neutrophil % 53.8 % [facility] Neutrophil Absolute 4.46 1.70 - 6.10 x10(3)/[facility] LABORATORY Lymph % 33.5 % [facility] Lymphocytes Abs 2.8 0.9 - 3.2 x10(3)/[facility] LABORATORY Monocyte % 8.3 % [facility] Monocyte Abs 0.7 0.3 - 0.9 x10(3)/[facility] LABORATORY Eos % 3.5 % [facility] Eosinophils Abs 0.3 0.0 - 0.4 x10(3)/[facility] LABORATORY Basophil % 0.5 % [facility] Baso Absolute 0.0 0.0 - 0.1 x10(3)/[facility] LABORATORY Immature Gran % 0.40 % [facility] Comment: Immature granulocytes(IG's)percentage and absolute count will include metamyelocytes, myelocytes, and promyelocytes. Blood smears from CBCs yielding IG's will be scanned manually for concordance. If this scan disagrees with the automated IG or if promyelocytes are noted, a manual differential will be performed. Immature Gran Absolute 0.03 0.00 - 0.04 x10(3)/[facility] LABORATORY Blood 06/29/2023 2:39 AM EDT 06/29/2023 3:33 AM EDT Narrative Resulting Agency Comment Spec In Lab Terrence Keating MD HEMATOLOGY ORDERABLE S [facility] [place] [address] * Hemogram (06/29/2023 2:39 AM EDT) White Blood Cell 8.3 4.0 - 9.5 x10(3)/[facility] LABORATORY Red Blood Cell 4.19 4.00 - 5.21 x10(6)/[facility] LABORATORY Hemoglobin 13.2 11.7 - 15.5 g/dL [facility] Hematocrit 38.9 35.7 - 45.8 % [facility] Mean Cell Volume 92.8 82.6 - 94.4 fL [facility] Mean Cell Hemoglobin 31.5 27.1 - 32.0 pg [facility] Mean Cell Hemoglobin Concentration 33.9 31.7 - 35.0 g/dL [facility] Platelet 237 145 - 357 x10(3)/[facility] LABORATORY RDW Standard Deviation 45.3 37.0 - 46.0 fL [facility] RDW coefficient of variation 13.3 11.5 - 14.1 % [facility] Mean Platelet Volume 11.4 7.6 - 12.9 fL [facility] NRBC% auto 0.0 % [facility] NRBC Absolute 0.000 0.000 - 0.000 x10(3)/mcL [facility] Blood 06/29/2023 2:39 AM EDT 06/29/2023 3:33 AM EDT Narrative Resulting Agency Comment Spec In Lab Terrence Keating MD HEMATOLOGY ORDERABLE S Performing Organization Address City/[facility] Co de Phone Number [facility] [place] [address] * (ABNORMAL) Heparin (unfractionated) Level (06/29/2023 2:39 [...] MD HEMATOLOGY ORDERABLE S Performing Organization Address City/[facility]/ZIP Co de Phone Number [facility] [place] [address] * (ABNORMAL) Basic Metabolic Panel (non-fasting) (06/29/2023 [...] CHEMISTRY ORDERABL ES [facility] [place] [id number] * Phosphorus (06/29/2023 2:39 AM EDT) Phosphorus 4.0 2.5 - 4.5 mg/dL [facility] Blood 06/29/2023 2:39 AM EDT 06/29/2023 3:33 AM EDT Narrative Resulting Agency Comment Spec In Lab Eufemia Copeland MD CHEMISTRY ORDERABL ES Performing Organization Address [facility] Co de Phone Number [facility] [place] [address] * Magnesium (06/29/2023 2:39 AM EDT) Magnesium 0.92 0.69 - 1.07 mmol/L [facility] Blood 06/29/2023 2:39 AM EDT 06/29/2023 3:33 AM EDT Narrative Resulting Agency Comment Spec In Lab Eufemia Copeland MD CHEMISTRY ORDERABL ES Performing Organization Address [facility] Systems/[facility] Co de Phone Number [facility] [place] [address] * US Abdomen Limited (06/28/2023 12:22 PM EDT) WORKSTATION ID [id number] DH RAD Anatomical Region Laterality Modality Abdomen [...] have questions, please contact the health care director rn that requested your imaging first. ?Sigrid Owens, [facility] Military Analyst Electronically Signed Final Report ?? 06/28/2023 02:08 pm Narrative 06/28/2023 2:08 PM EDT Abdominal ? (Signed Final 06/28/2023 02:08 pm) PATIENT INFO: ID #: ? [id number] ?: ??[birth year] (53 yrs)(F) Name: ? LOIDA ?Visit Date: 06/28/2023 12:20 pm ? ROHAN PERFORMED BY: Attending: ?Graciela JOHN, Sigrid Munoz Resident: ? Karo JOHN, Rafaela Performed By: ? Rick STANFORD, ??Deena Referred By: ?AILYN IRVIN Location: ? [facility] SERVICE(S) PROVIDED: UABDLIM - Abdominal Limited Survey Single ? 57747 Organ or Quadrant - [id number] INDICATIONS: RUQ pain, R/o Gall bladder colic, [...] 06/28/2023 02:08 pm) PATIENT INFO: ID #: [id number] : 68 (53 yrs)(F) Name: LOIDA Visit Date: 06/28/2023 12:20 pm ROHAN PERFORMED BY: Attending: Sigrid Owens MD Resident: Rafaela Huddleston MD Performed By: Deena Cabrera RDMS Referred By: AILYN IRVIN Location: [facility] SERVICE(S) PROVIDED: UABDLIM - Abdominal Limited Survey Single 36443 Organ or Quadrant - [id number] INDICATIONS: RUQ pain, R/o Gall bladder colic, [...] have questions, please contact the health care director rn that requested your imaging first. Sigrid Owens, [facility] Military Analyst Electronically Signed Final Report 06/28/2023 02:08 pm Ailyn Irvin MD IMG GEN ORDERABLE S * Duplex Study Visceral Arteries, Comp (06/28/2023 10:19 AM EDT) Pathologist [facility] Text Report Department: Vascular Surgery Lab Patient: [id number] (LOIDA ROQUE) CPT: [id number] Referring Physician: HEIDY SULLIVAN ?? Indications: abdominal pain, ? patency/stenosi s Findings: Unilateral ? Waveform ? PSV cm/s ??EDV cm/s ??Patent ?? Dary Visceral Aorta ? 80 ?16 ? Celiac Artery, Proximal ??[place]-Biphasic ? 119 ?26 ? Celiac Artery, Mid ? [place]-Biphasic ? 115 ?21 ? Celiac Artery, Distal ? No Vis ?? Sup Mes Artery Proximal ??Biphasic ?427 ?91 ? Sup Mes Artery Middle ?[place]-Biphasic ? 100 ?17 ? Sup Mes Artery Distal ?[place]-Biphasic ?64 ?15 ? Hepatic Artery ?No Vis [...] 1:52 AM EDT) Neutrophil % 55.3 % [facility] Neutrophil Absolute 4.46 1.70 - 6.10 x10(3)/mcL [facility] Lymph % 30.6 % [facility] Lymphocytes Abs 2.5 0.9 - 3.2 x10(3)/[facility] Monocyte % 8.8 % [facility] Monocyte Abs 0.7 0.3 - 0.9 x10(3)/[facility] Eos % 4.6 % [facility] Eosinophils Abs 0.4 0.0 - 0.4 x10(3)/[facility] LABOR[facility] Basophil % 0.5 % [facility] Baso Absolute 0.0 0.0 - 0.1 x10(3)/[facility] Immature Gran % 0.20 % MAY[facility] [...] 0.04 x10(3)/[facility] Blood 06/28/2023 1:52 AM EDT 06/28/2023 2:05 AM EDT Narrative Resulting Agency Comment Spec In Lab Terrence Keating MD HEMATOLOGY ORDERABLE S [facility] [place] [address] * Hemogram (06/28/2023 1:52 AM EDT) White Blood Cell 8.1 4.0 - 9.5 x10(3)/[facility] LAB[facility] Red Blood Cell 4.30 4.00 - 5.21 x10(6)/[facility] Hemoglobin 13.4 11.7 - 15.5 g/dL [facility] Hematocrit 40.6 35.7 - 45.8 % [facility] Mean Cell Volume 94.4 82.6 - 94.4 fL [facility] Mean Cell Hemoglobin 31.2 27.1 - 32.0 pg [facility] Mean Cell Hemoglobin Concentration 33.0 31.7 - 35.0 g/dL [facility] Platelet 238 145 - 357 x10(3)/[facility] RDW Standard Deviation 45.7 37.0 - 46.0 fL [facility] RDW coefficient of variation 13.2 11.5 - 14.1 % [facility] Mean Platelet Volume 10.8 7.6 - 12.9 fL [facility] NRBC% auto 0.0 % [facility] NRBC Absolute 0.000 0.000 - 0.000 x10(3)/[facility] Blood 06/28/2023 1:52 AM EDT 06/28/2023 2:05 AM EDT Narrative Resulting Agency Comment Spec In Lab Terrence Keating MD HEMATOLOGY ORDERABLE S [facility] [place] [address] * (ABNORMAL) Basic Metabolic Panel (non-fasting) (06/28/2023 [...] Performing Organization Address [facility] Co de Phone Number [facility] [place] [address] * Phosphorus (06/28/2023 1:52 AM EDT) Phosphorus 4.5 2.5 - 4.5 mg/dL [facility] Blood 06/28/2023 1:52 AM EDT 06/28/2023 2:05 AM EDT Narrative Resulting Agency Comment Spec In Lab Eufemia Copeland MD CHEMISTRY ORDERABL ES Performing Organization Address [facility]/ZIP Co de Phone Number [facility] [place] [address] * Magnesium (06/28/2023 1:52 AM EDT) Magnesium 0.93 0.69 - 1.07 mmol/L [facility] Blood 06/28/2023 1:52 AM EDT 06/28/2023 2:05 AM EDT Narrative Resulting Agency Comment Spec In Lab Eufemia Copeland MD CHEMISTRY ORDERABL ES [facility] [place] [address] * (ABNORMAL) Basic Metabolic Panel (non-fasting) (06/27/2023 [...] Irvin MD CHEMISTRY ORDERABLES Performing Organization Address [facility]/ZIP Co de Phone Number [facility] [place] [address] * (ABNORMAL) Hepatic Function Panel (06/27/2023 4:34 AM EDT) [facility] Protein, Total 6.4 6.1 - 8.0 [...] Irvin MD CHEMISTRY ORDERABLES Performing Organization Address City/[facility]/ZIP Co de Phone Number [facility] [place] [address] * Differential, Automated (06/27/2023 4:34 AM EDT) [facility] Neutrophil % 52.7 % [facility] Neutrophil Absolute 4.01 1.70 - 6.10 x10(3)/mcL [facility] Lymph % 33.8 % [facility] Lymphocytes Abs 2.6 0.9 - 3.2 x10(3)/[facility] Monocyte % 8.8 % [facility] Monocyte Abs 0.7 0.3 - 0.9 x10(3)/[facility] Eos % 3.8 % [facility] Eosinophils Abs 0.3 0.0 - 0.4 x10(3)/[facility] Basophil % 0.5 % [facility] Baso Absolute 0.0 0.0 - 0.1 x10(3)/[facility] Immature Gran % 0.40 % [facility] Comment: Immature granulocytes(IG's)percentage and absolute count will include metamyelocytes, myelocytes, and promyelocytes. Blood smears from CBCs yielding IG's will be scanned manually for concordance. If this scan disagrees with the automated IG or if promyelocytes are noted, a manual differential will be performed. Immature Gran Absolute 0.03 0.00 - 0.04 x10(3)/[facility] Blood 06/27/2023 4:34 AM EDT 06/27/2023 4:51 AM EDT Narrative Resulting Agency Comment Spec In Lab Terrence Keating MD HEMATOLOGY ORDERABLE S Performing Organization Address City/State/[facility] Co de Phone Number [facility] [place] [address] * Hemogram (06/27/2023 4:34 AM EDT) White Blood Cell 7.6 4.0 - 9.5 x10(3)/[facility] LAB[facility] Red Blood Cell 4.15 4.00 - 5.21 x10(6)/[facility] Hemoglobin 12.9 11.7 - 15.5 g/dL [facility] Hematocrit 39.0 35.7 - 45.8 % [facility] Mean Cell Volume 94.0 82.6 - 94.4 fL [facility] Mean Cell Hemoglobin 31.1 27.1 - 32.0 pg [facility] Mean Cell Hemoglobin Concentration 33.1 31.7 - 35.0 g/dL [facility] Platelet 245 145 - 357 x10(3)/[facility] RDW Standard Deviation 45.2 37.0 - 46.0 fL [facility] RDW coefficient of variation 13.2 11.5 - 14.1 % [facility] Mean Platelet Volume 11.2 7.6 - 12.9 fL [facility] NRBC% auto 0.0 % [facility] NRBC Absolute 0.000 0.000 - 0.000 x10(3)/[facility] Blood 06/27/2023 4:34 AM EDT 06/27/2023 4:51 AM EDT Narrative Resulting Agency Comment Spec In Lab Terrence Keating MD HEMATOLOGY ORDERABLE S [facility] [place] [address] * (ABNORMAL) Basic Metabolic Panel (non-fasting) (06/27/2023 [...] de Phone Number [facility] [place] [address] * (ABNORMAL) Phosphorus (06/27/2023 4:34 AM EDT) Phosphorus 4.7(H) 2.5 - 4.5 mg/dL [facility] Blood 06/27/2023 4:34 AM EDT 06/27/2023 4:51 AM EDT Narrative Resulting Agency Comment Spec In Lab Eufemia Cpoeland MD CHEMISTRY ORDERABL ES [facility] [place] [address] * Magnesium (06/27/2023 4:34 AM EDT) Magnesium 0.90 0.69 - 1.07 mmol/L [facility] Blood 06/27/2023 4:34 AM EDT 06/27/2023 4:51 AM EDT Narrative Resulting Agency Comment Spec In Lab Eufemia Copeland MD CHEMISTRY ORDERABL ES [facility] [place] [address] * (ABNORMAL) Basic Metabolic Panel (non-fasting) (06/26/2023 [...] Irvin MD CHEMISTRY ORDERABLES Performing Organization Address [facility] Co de Phone Number [facility] [place] [address] * Urinalysis Microscopic Exam (06/26/2023 11:09 AM EDT) RBC, Urine 0 0 - 4 /HPF [facility] WBC, Urine 3 0 - 5 /HPF [facility] Squamous Epithelial Cells Raw Data, Urine 1 <=4 /HPF [facility] Hyaline Casts, Urine 1 0 - 2 /LPF [facility] Clean Catch Urine 06/26/2023 11:09 AM EDT 06/26/2023 5:45 PM EDT Narrative Resulting Agency Comment Spec In Lab Ailyn Irvin MD URINE ORDERABLES Performing Organization Address [facility] de Phone Number [facility] [place] [address] * (ABNORMAL) Urinalysis with reflex Culture (06/26/2023 [...] HOSPITAL LABORATORY Leukocytes, Urine Dipstick Trace(A) Negative [facility] Appearance, Urine Dipstick Clear Clear [facility] Specific Ocate Urine Automated 1.013 1.005 - 1.030 [facility] Color, Urine Dipstick Yellow Yellow [facility] Reflex to Culture No [facility] Clean Catch Urine 06/26/2023 11:09 AM EDT 06/26/2023 5:45 PM EDT Narrative Resulting Agency Comment Spec In Lab Ailyn Irvin MD URINE ORDERABLES Performing Organization Address [facility] Co de Phone Number [facility] [place] [address] * EKG 12 Lead (06/26/2023 6:04 AM EDT) Ventricular rate 46 BPM MUSE SYSTEM Atrial Rate 46 BPM MUSE SYSTEM P-R Interval 204 ms MUSE SYSTEM QRS Duration 90 ms MUSE SYSTEM Q-T Interval 466 ms MUSE SYSTEM QTC Calculated (Bezet) 407 ms MUSE SYSTEM Calculated P [place] 38 degrees MUSE SYSTEM Calculated R [place] 48 degrees MUSE SYSTEM Calculated T [place] 13 degrees MUSE SYSTEM INTERPRETATION Sinus bradycardia Nonspecific ST and T wave abnormality Abnormal ECG When compared with ECG of 23-JUN-2023 09:54, No significant change was found Confirmed by MD Dalia, Willy Huerta ([id number]) on 06/29/2023 6:09:20 AM MUSE SYSTEM 06/26/2023 6:04 AM EDT 06/29/2023 6:09 AM EDT Eufemia Copeland MD ECG ORDERABLES Performing Organization Address City/[facility]/ZIP Co de Phone Number MUSE SYSTEM * Differential, Automated (06/26/2023 4:06 AM EDT) Pathologist [facility] Neutrophil % 55.3 % [facility] Neutrophil Absolute 4.63 1.70 - 6.10 x10(3)/[facility] Lymph % 32.6 % [facility] Lymphocytes Abs 2.7 0.9 - 3.2 x10(3)/[facility] Monocyte % 8.2 % [facility] Monocyte Abs 0.7 0.3 - 0.9 x10(3)/[facility] Eos % 3.2 % [facility] Eosinophils Abs 0.3 0.0 - 0.4 x10(3)/[facility] Basophil % 0.5 % [facility] Baso Absolute 0.0 0.0 - 0.1 x10(3)/[facility] Immature Gran % 0.20 % MAY[facility] [...] 0.04 x10(3)/[facility] Blood 06/26/2023 4:06 AM EDT 06/26/2023 4:18 AM EDT Narrative Resulting Agency Comment Spec In Lab Terrence Keating MD HEMATOLOGY ORDERABLE S [facility] [place] [address] * (ABNORMAL) Hemogram (06/26/2023 4:06 AM EDT) [facility] White Blood Cell 8.4 4.0 - 9.5 x10(3)/[facility] LABORATORY Red Blood Cell 4.52 4.00 - 5.21 x10(6)/mc L [facility] Hemoglobin 14.0 [...] [facility] NRBC% auto 0.0 % [facility] NRBC Absolute 0.000 0.000 - 0.000 x10(3)/mc L [facility] Blood 06/26/2023 4:06 AM EDT 06/26/2023 4:18 AM EDT Narrative Resulting Agency Comment Spec In Lab Terrence Keating MD HEMATOLOGY ORDERABLE S Performing Organization Address City/State/[facility] Co de Phone Number [facility] [place] [address] * (ABNORMAL) Basic Metabolic Panel (non-fasting) (06/26/2023 [...] ORDERABL ES Performing Organization Address City/[facility] Co de Phone Number [facility] [place] [address] * Phosphorus (06/26/2023 4:06 AM EDT) Phosphorus 4.3 2.5 - 4.5 mg/dL [facility] Blood 06/26/2023 4:06 AM EDT 06/26/2023 4:18 AM EDT Narrative Resulting Agency Comment Spec In Lab Eufemia Copeland MD CHEMISTRY ORDERABL ES [facility] [place] [address] * Magnesium (06/26/2023 4:06 AM EDT) Pathologist [facility] Magnesium 0.96 0.69 - 1.07 mmol/L [facility] Blood 06/26/2023 4:06 AM EDT 06/26/2023 4:18 AM EDT Narrative Resulting Agency Comment Spec In Lab Eufemai Copeland MD CHEMISTRY ORDERABL ES Performing Organization Address [facility] Co de Phone Number [facility] [place] [address] * Differential, Automated (06/25/2023 1:50 AM EDT) [facility] Neutrophil % 56.2 % [facility] Neutrophil Absolute 4.06 1.70 - 6.10 x10(3)/[facility] Lymph % 30.5 % [facility] Lymphocytes Abs 2.2 0.9 - 3.2 x10(3)/[facility] Monocyte % 8.7 % [facility] Monocyte Abs 0.6 0.3 - 0.9 x10(3)/[facility] Eos % 3.9 % [facility] Eosinophils Abs 0.3 0.0 - 0.4 x10(3)/[facility] Basophil % 0.6 % [facility] Baso Absolute 0.0 0.0 - 0.1 x10(3)/[facility] Immature Gran % 0.10 % MAY[facility] [...] 0.04 x10(3)/[facility] Blood 06/25/2023 1:50 AM EDT 06/25/2023 2:16 AM EDT Narrative Resulting Agency Comment Spec In Lab Terrence Keating MD HEMATOLOGY ORDERABLE S [facility] [place] [address] * Hemogram (06/25/2023 1:50 AM EDT) White Blood Cell 7.2 4.0 - 9.5 x10(3)/[facility] Red Blood Cell 4.57 4.00 - 5.21 x10(6)/[facility] Hemoglobin 14.4 11.7 - 15.5 g/dL [facility] Hematocrit 42.9 35.7 - 45.8 % [facility] Mean Cell Volume 93.9 82.6 - 94.4 fL [facility] Mean Cell Hemoglobin 31.5 27.1 - 32.0 pg [facility] Mean Cell Hemoglobin Concentration 33.6 31.7 - 35.0 g/dL [facility] Platelet 241 145 - 357 x10(3)/[facility] LABORATORY RDW Standard Deviation 44.7 37.0 - 46.0 [facility] LAB[facility]ORY RDW coefficient of variation 13.2 11.5 - 14.1 % [facility] Mean Platelet Volume 11.5 7.6 - 12.9 [facility] LABORATORY NRBC% auto 0.0 % [facility] NRBC Absolute 0.000 0.000 - 0.000 x10(3)/[facility] Blood 06/25/2023 1:50 AM EDT 06/25/2023 2:16 AM EDT Narrative Resulting Agency Comment Spec In Lab Terrence Keating MD HEMATOLOGY ORDERABLE S [facility] [place] [address] * (ABNORMAL) Basic Metabolic Panel (non-fasting) (06/25/2023 [...] Performing Organization Address [facility] [place] [address] * Phosphorus (06/25/2023 1:50 AM EDT) Phosphorus 4.4 2.5 - 4.5 mg/dL [facility] Blood 06/25/2023 1:50 AM EDT 06/25/2023 2:16 AM EDT Narrative Resulting Agency Comment Spec In Lab Eufemia Copeland MD CHEMISTRY ORDERABL ES Performing Organization Address [facility] [place] [address] * Magnesium (06/25/2023 1:50 AM EDT) Magnesium 0.99 0.69 - 1.07 mmol/L [facility] Blood 06/25/2023 1:50 AM EDT 06/25/2023 2:16 AM EDT Narrative Resulting Agency Comment Spec In Lab Eufemia Copeland MD CHEMISTRY ORDERABL ES Performing Organization Address [facility] [place] [address] * (ABNORMAL) pro-Brain Natriuretic Peptide (06/24/2023 3:38 AM EDT) NT-proBNP 1,239(H) <=124 pg/mL [facility] Blood Venous Draw / Unknown 06/24/2023 3:38 AM EDT 06/24/2023 3:49 AM EDT Narrative Resulting Agency Comment Spec In Lab Ailyn Irvin MD CHEMISTRY ORDERABLES Performing Organization Address City/[facility]/ZIP Co [place] [address] * Differential, Automated (06/24/2023 3:38 AM EDT) Neutrophil % 51.6 % [facility] Neutrophil Absolute 3.54 1.70 - 6.10 x10(3)/[facility] LABOR[facility] Lymph % 36.0 % [facility] Lymphocytes Abs 2.5 0.9 - 3.2 x10(3)/[facility] Monocyte % 7.8 % [facility] Monocyte Abs 0.5 0.3 - 0.9 x10(3)/[facility] LABOR[facility]ORY Eos % 3.6 % [facility] Eosinophils Abs 0.2 0.0 - 0.4 x10(3)/[facility] LAB[facility] Basophil % 0.7 % [facility] Baso Absolute 0.0 0.0 - 0.1 x10(3)/[facility] Immature Gran % 0.30 % [facility] [...] 0.04 x10(3)/[facility] Blood 06/24/2023 3:38 AM EDT 06/24/2023 3:49 AM EDT Narrative Resulting Agency Comment Spec In Lab Terrence Keating MD HEMATOLOGY [place] [address] * Hemogram (06/24/2023 3:38 AM EDT) Pathologist [facility] White Blood Cell 6.9 4.0 - 9.5 x10(3)/[facility] LAB[facility] Red Blood Cell 4.36 4.00 - 5.21 x10(6)/[facility] Hemoglobin 13.6 11.7 - 15.5 g/dL [facility] Hematocrit 40.7 35.7 - 45.8 % [facility] Mean Cell Volume 93.3 82.6 - 94.4 fL [facility] Mean Cell Hemoglobin 31.2 27.1 - 32.0 pg [facility] Mean Cell Hemoglobin Concentration 33.4 31.7 - 35.0 g/dL [facility] Platelet 220 145 - 357 x10(3)/[facility] LABORATORY RDW Standard Deviation 44.5 37.0 - 46.0 [facility] LABORATORY RDW coefficient of variation 13.0 11.5 - 14.1 % [facility] Mean Platelet Volume 10.8 7.6 - 12.9 [facility] LABORATORY NRBC% auto 0.0 % [facility] NRBC Absolute 0.000 0.000 - 0.000 x10(3)/[facility] LAB[facility] Blood 06/24/2023 3:38 AM EDT 06/24/2023 3:49 AM EDT Narrative Resulting Agency Comment Spec In Lab Terrence Keating MD HEMATOLOGY ORDERABLE S [facility] [place] [address] * Heparin (unfractionated) Level (06/24/2023 3:38 AM EDT) UF Heparin 0.44 IU/mL [facility] Comment: [...] HEMATOLOGY ORDERABLE S [facility] [place] [address] * (ABNORMAL) Basic Metabolic Panel (non-fasting) (06/24/2023 [...] Performing Organization Address [facility] Co de Phone Number [facility] [place] [address] * Phosphorus (06/24/2023 3:38 AM EDT) Phosphorus 4.1 2.5 - 4.5 mg/dL [facility] Blood 06/24/2023 3:38 AM EDT 06/24/2023 3:49 AM EDT Narrative Resulting Agency Comment Spec In Lab Eufemia Copeland MD CHEMISTRY ORDERABL ES Performing Organization Address [facility] Co de Phone Number [facility] [place] [address] * Magnesium (06/24/2023 3:38 AM EDT) Magnesium 0.96 0.69 - 1.07 mmol/L [facility] Blood 06/24/2023 3:38 AM EDT 06/24/2023 3:49 AM EDT Narrative Resulting Agency Comment Spec In Lab Eufemia Copeland MD CHEMISTRY ORDERABL ES Performing Organization Address [facility] Co de Phone Number [facility] [place] [address] * Heparin (unfractionated) Level (06/23/2023 9:24 PM EDT) UF Heparin 0.51 IU/mL [facility] Comment: [...] HEMATOLOGY ORDERABLE S Performing Organization Address City/State/[facility] Co de Phone Number [facility] [place] [address] * Duplex Study Visceral Arteries, Comp (06/23/2023 3:36 PM EDT) Pathologist [facility] VB Text Report Department: Vascular Surgery Lab Patient: [id number] (LOIDA ROQUE) CPT: [id number] Referring Physician: AILYN IRVIN ?? Phone: Indications: [...] 3:01 PM EDT) UF Heparin 0.90 IU/mL [facility] Comment: [...] MD HEMATOLOGY ORDERABLE S Performing Organization Address City/[facility]/ZIP Co de Phone Number [facility] [place] [address] * EKG 12 Lead (06/23/2023 9:54 AM EDT) Ventricular rate 48 BPM MUSE SYSTEM Atrial Rate 48 BPM MUSE SYSTEM P-R Interval 192 ms MUSE SYSTEM QRS Duration 92 ms MUSE SYSTEM Q-T Interval 462 ms MUSE SYSTEM QTC Calculated (Bezet) 412 ms MUSE SYSTEM Calculated P [place] 21 degrees MUSE SYSTEM Calculated R [place] 20 degrees MUSE SYSTEM Calculated T [place] 16 degrees MUSE SYSTEM INTERPRETATION Sinus bradycardia Nonspecific ST and T wave abnormality Abnormal ECG When compared with ECG of 22-JUN-2023 11:13, Criteria for Septal infarct are no longer Present No significant change was found Confirmed by MD [place], Gus ([id number]) on 06/23/2023 12:59:50 PM MUSE SYSTEM 06/23/2023 9:54 AM EDT 06/23/2023 12:59 PM EDT Ailyn Irvin MD ECG ORDERABLES Performing Organization Address City/[facility]/ZIP Co de Phone Number MUSE SYSTEM * Differential, Automated (06/23/2023 4:12 AM EDT) Neutrophil % 52.8 % [facility] Neutrophil Absolute 4.30 1.70 - 6.10 x10(3)/[facility] LABORATORY Lymph % 33.9 % [facility] Lymphocytes Abs 2.8 0.9 - 3.2 x10(3)/[facility] LABORATORY Monocyte % 8.3 % [facility] Monocyte Abs 0.7 0.3 - 0.9 x10(3)/[facility] LABORATORY Eos % 3.9 % [facility] Eosinophils Abs 0.3 0.0 - 0.4 x10(3)/[facility] LABORATORY Basophil % 0.7 % [facility] LABORATORY Baso Absolute 0.1 0.0 - 0.1 x10(3)/[facility] LABORATORY Immature Gran % 0.40 % [facility] Comment: Immature granulocytes(IG's)percentage and absolute count will include metamyelocytes, myelocytes, and promyelocytes. Blood smears from CBCs yielding IG's will be scanned manually for concordance. If this scan disagrees with the automated IG or if promyelocytes are noted, a manual differential will be performed. Immature Gran Absolute 0.03 0.00 - 0.04 x10(3)/[facility] LABORATORY Blood 06/23/2023 4:12 AM EDT 06/23/2023 4:38 AM EDT Narrative Resulting Agency Comment Spec In Lab Terrence Keating MD HEMATOLOGY ORDERABLE S [facility] [place] [address] * Hemogram (06/23/2023 4:12 AM EDT) White Blood Cell 8.2 4.0 - 9.5 x10(3)/[facility] LABORATORY Red Blood Cell 4.59 4.00 - 5.21 x10(6)/[facility] LABORATORY Hemoglobin 14.3 11.7 - 15.5 g/dL [...] HOSPITAL LABORATORY Platelet 233 145 - 357 x10(3)/[facility] LABORATORY RDW Standard Deviation 44.2 37.0 - 46.0 fL [facility] RDW coefficient of variation 13.0 11.5 - 14.1 % [facility] Mean Platelet Volume 11.3 7.6 - 12.9 fL [facility] NRBC% auto 0.0 % [facility] NRBC Absolute 0.000 0.000 - 0.000 x10(3)/[facility] LABORATORY Blood 06/23/2023 4:12 AM EDT 06/23/2023 4:38 AM EDT Narrative Resulting Agency Comment Spec In Lab Terrence Keating MD HEMATOLOGY ORDERABLE S Performing Organization Address City/State/[facility] Co de Phone Number [facility] [place] [address] * (ABNORMAL) Heparin (unfractionated) Level (06/23/2023 4:12 [...] HEMATOLOGY ORDERABLE S [facility] [place] [address] * (ABNORMAL) Basic Metabolic Panel (non-fasting) (06/23/2023 [...] Performing Organization Address [facility] de Phone Number [facility] [place] [address] * Phosphorus (06/23/2023 4:12 AM EDT) Phosphorus 4.5 2.5 - 4.5 mg/dL [facility] Blood 06/23/2023 4:12 AM EDT 06/23/2023 4:38 AM EDT Narrative Resulting Agency Comment Spec In Lab Eufemia Copeland MD CHEMISTRY ORDERABL ES Performing Organization Address [facility] de Phone Number [facility] [place] [address] * Magnesium (06/23/2023 4:12 AM EDT) Magnesium 1.03 0.69 - 1.07 mmol/L [facility] Blood 06/23/2023 4:12 AM EDT 06/23/2023 4:38 AM EDT Narrative Resulting Agency Comment Spec In Lab Eufemia Copeland MD CHEMISTRY ORDERABL ES Performing Organization Address [facility] de Phone Number [facility] [place] [address] * ECHO LMTD W CONTRAST W LMTD SPEC DOPP COLOR DOPP (06/22/2023 4:25 PM EDT) Anatomical Region Laterality Modality Cardiac Other 06/22/2023 2:49 PM EDT Narrative 06/22/2023 4:42 PM EDT [address] [place] [address] ? Echocardiogram Report Name: LOIDA ROQUE ?Study Date: 06/22/2023 02:49 PM ?Patient Location: [place] [id number] A ??HR: 57 : 1970 ?Height: 162 cm ? Account: [id number] Age: 53 yrs ?Weight: 102 kg Gender: [...] slight decrease in LV systolic function. Procedure Complete-82521. Satisfactory quality. There is normal sinus rhythm. [...] Procedure Note Jose Gallegos MD - 06/22/[address] [place] [address] Echocardiogram Report Name: LOIDA ROQUE Study Date: 06/22/2023 02:49 PM Patient Location: [place] [id number] A HR:57 : 1970 Height: 162 cmAccount: [id number] Age: 53 yrs Weight: 102 kg Gender: [...] a slightdecrease in LV systolic function. Procedure Complete-15675. Satisfactory quality. There is normal sinus rhythm. [...] * (ABNORMAL) Troponin (06/22/2023 2:38 PM EDT) [facility] Troponin-T, High Sensitivity 22(H) <=14 ng/L [facility] [...] troponin value can be found in the [facility] Laboratory Test Catalog Troponin - [facility] Laboratory Test Catalog Reference: Fourth [place] Definition of Myocardial Infarction. Journal of the [place] [employer] 2018;72:2309-1626 Blood 06/22/2023 2:38 PM EDT 06/22/2023 2:50 PM EDT Narrative Resulting Agency Comment Spec In Lab Ailyn Irvin MD CHEMISTRY ORDERABLES Performing Organization Address [facility] Co de Phone Number [facility] [place] [address] * Duplex for DVT, Arm, Unilat (06/22/2023 2:24 PM EDT) VB Text Report Department: Vascular Surgery Lab Patient: [id number] (LOIDA ROQUE) CPT: 09043 Referring Physician: AILYN IRVIN ?? Phone: Indications: [...] Irvin MD VASCULAR ORDERABLES Performing Organization Address [facility] Co de Phone Number [facility] * [...] have questions please contact the health care director rn that requested your imaging first. ? Electronically signed by: Itz Hayward MD, [facility] ??([phone]), at 06/22/2023 11:47 AM Narrative 06/22/2023 11:47 [...] who have questions please contactthe health care director rn that requested your imaging first. Ailyn Irvin MD IMG DX ORDERABLES * (ABNORMAL) Troponin (06/22/2023 11:24 AM EDT) [facility] Troponin-T, High Sensitivity 22(H) <=14 ng/L [facility] [...] troponin value can be found in the [facility] Laboratory Test Catalog Troponin - [facility] Laboratory Test Catalog Reference: Fourth [place] Definition of Myocardial Infarction. Journal of the [place] [employer] 2018;72:9518-9743 Blood 06/22/2023 11:2 4 AM EDT 06/22/2023 11:44 AM EDT Narrative Resulting Agency Comment Spec In Lab Ailyn Irvin MD CHEMISTRY ORDERABLES [facility] [place] [address] * EKG 12 Lead (06/22/2023 11:13 AM EDT) Ventricular rate 63 BPM MUSE SYSTEM Atrial Rate 63 BPM MUSE SYSTEM P-R Interval 162 ms MUSE SYSTEM QRS Duration 86 ms MUSE SYSTEM Q-T Interval 382 ms MUSE SYSTEM QTC Calculated (Bezet) 390 ms MUSE SYSTEM Calculated P [place] 24 degrees MUSE SYSTEM Calculated R [place] 32 degrees MUSE SYSTEM Calculated T [place] -2 degrees MUSE SYSTEM INTERPRETATION Normal sinus rhythm Septal infarct (cited on or before 22-JUN-2023) Possible Lateral infarct , age undetermined ST & T wave abnormality, consider inferolateral ischemia Abnormal ECG When compared with ECG of 22-JUN-2023 10:55, No significant change was found Confirmed by MD Petey, Kia ([id number]) on 06/22/2023 3:56:31 PM MUSE SYSTEM 06/22/2023 11:1 3 AM EDT 06/22/2023 3:56 PM EDT Ailyn Irvin MD ECG ORDERABLES Performing Organization Address City/[facility]/ZIP Co de Phone Number MUSE SYSTEM * EKG 12 Lead (06/22/2023 10:55 AM EDT) Ventricular rate 56 BPM MUSE SYSTEM Atrial Rate 56 BPM MUSE SYSTEM P-R Interval 168 ms MUSE SYSTEM QRS Duration 88 ms MUSE SYSTEM Q-T Interval 426 ms MUSE SYSTEM QTC Calculated (Bezet) 411 ms MUSE SYSTEM Calculated P [place] 22 degrees MUSE SYSTEM Calculated R [place] 20 degrees MUSE SYSTEM Calculated T [place] 10 degrees MUSE SYSTEM INTERPRETATION Sinus bradycardia Septal infarct , age undetermined ST & T wave abnormality, consider inferolateral ischemia Abnormal ECG When compared with ECG of 21-JUN-2023 10:06, Septal infarct is now Present Confirmed by MD Angelo Danette ([id number]) on 06/22/2023 3:55:53 PM MUSE SYSTEM 06/22/2023 10:5 5 AM EDT 06/22/2023 3:55 PM EDT Ailyn Irvin MD ECG ORDERABLES Performing Organization Address [facility] Co de Phone Number MUSE SYSTEM * Differential, Automated (06/22/2023 4:34 AM EDT) Neutrophil % 54.4 % [facility] Neutrophil Absolute 4.07 1.70 - 6.10 x10(3)/[facility] LABORATORY Lymph % 30.6 % [facility] LABORATORY Lymphocytes Abs 2.3 0.9 - 3.2 x10(3)/[facility] LABORATORY Monocyte % 9.9 % [facility] Monocyte Abs 0.7 0.3 - 0.9 x10(3)/[facility] LABORATORY Eos % 4.3 % [facility] Eosinophils Abs 0.3 0.0 - 0.4 x10(3)/[facility] LABORATORY Basophil % 0.7 % [facility] Baso Absolute 0.0 0.0 - 0.1 x10(3)/[facility] LABORATORY Immature Gran % 0.10 % MAY[facility] [...] 0.04 x10(3)/[facility] LABORATORY Blood 06/22/2023 4:34 AM EDT 06/22/2023 4:42 AM EDT Narrative Resulting Agency Comment Spec In Lab Terrence Keating MD HEMATOLOGY ORDERABLE S [facility] [place] [address] * (ABNORMAL) Hemogram (06/22/2023 4:34 AM EDT) White Blood Cell 7.5 4.0 - 9.5 x10(3)/[facility] LABORATORY Red Blood Cell 4.04 4.00 - 5.21 x10(6)/[facility] LABORATORY Hemoglobin 12.8 11.7 - [...] HOSPITAL LABORATORY Platelet 225 145 - 357 x10(3)/[facility] LABORATORY RDW Standard Deviation 45.9 37.0 - 46.0 fL [facility] RDW coefficient of variation 13.0 11.5 - 14.1 % [facility] Mean Platelet Volume 10.6 7.6 - 12.9 fL [facility] NRBC% auto 0.0 % [facility] NRBC Absolute 0.000 0.000 - 0.000 x10(3)/mc L [facility] Blood 06/22/2023 4:34 AM EDT 06/22/2023 4:42 AM EDT Narrative Resulting Agency Comment Spec In Lab Terrence Keating MD HEMATOLOGY ORDERABLE S [facility] [place] [address] * (ABNORMAL) Basic Metabolic Panel (non-fasting) (06/22/2023 [...] Performing Organization Address [facility] Co de Phone Number [facility] [place] [address] * (ABNORMAL) Phosphorus (06/22/2023 4:34 AM EDT) Phosphorus 4.9(H) 2.5 - 4.5 mg/dL [facility] Blood 06/22/2023 4:34 AM EDT 06/22/2023 4:42 AM EDT Narrative Resulting Agency Comment Spec In Lab Eufemia Copeland MD CHEMISTRY ORDERABL ES Performing Organization Address [facility] Co de Phone Number [facility] [place] [address] * Magnesium (06/22/2023 4:34 AM EDT) Magnesium 1.02 0.69 - 1.07 mmol/L [facility] Blood 06/22/2023 4:34 AM EDT 06/22/2023 4:42 AM EDT Narrative Resulting Agency Comment Spec In Lab Eufemia Copeland MD CHEMISTRY ORDERABL ES Performing Organization Address [facility] Co de Phone Number [facility] [place] [address] * CT Abdomen & Pelvis w Contrast [...] have questions please contact the health care director rn that requested your imaging first. ? [...] who have questions please contactthe health care director rn that requested your imaging first. Eufemia Copeland MD IMG CT ORDERABLES * EKG 12 Lead (06/21/2023 10:06 AM EDT) Pathologist [facility] Ventricular rate 51 BPM MUSE SYSTEM Atrial Rate 51 BPM MUSE SYSTEM P-R Interval 176 ms MUSE SYSTEM QRS Duration 92 ms MUSE SYSTEM Q-T Interval 450 ms MUSE SYSTEM QTC Calculated (Bezet) 414 ms MUSE SYSTEM Calculated P [place] 17 degrees MUSE SYSTEM Calculated R [place] 35 degrees MUSE SYSTEM Calculated T [place] 13 degrees MUSE SYSTEM INTERPRETATION Sinus bradycardia [...] (ABNORMAL) Troponin (06/21/2023 9:45 AM EDT) Pathologist [facility] Troponin-T, High Sensitivity 22(H) <=14 ng/L [facility] [...] troponin value can be found in the [facility] Laboratory Test Catalog Troponin - [facility] Laboratory Test Catalog Reference: Fourth [place] Definition of Myocardial Infarction. Journal of the [place] [employer] 2018;72:0288-5368 Blood 06/21/2023 9:45 AM EDT 06/21/2023 10:08 AM EDT Narrative Resulting Agency Comment Spec In Lab Eufemia Copeland MD CHEMISTRY ORDERABL ES Performing Organization Address City/[facility]/ZIP Co de Phone Number [facility] [place] [address] * (ABNORMAL) pro-Brain Natriuretic Peptide (06/21/2023 5:58 AM EDT) NT-proBNP 1,370(H) <=124 pg/mL [facility] Blood Venous Draw / Unknown 06/21/2023 5:58 AM EDT 06/21/2023 7:28 AM EDT Narrative Resulting Agency Comment Spec In Lab Eufemia Copeland MD CHEMISTRY ORDERABL ES Performing Organization Address [facility]/ZIP Co de Phone Number [facility] [place] [address] * Potassium (06/21/2023 5:58 AM EDT) Potassium 4.0 3.5 - 5.0 mmol/L MAYO [...] de Phone Number [facility] [place] [address] * Differential, Automated (06/21/2023 3:25 AM EDT) Pathologist [facility] Neutrophil % 54.0 % [facility] Neutrophil Absolute 5.02 1.70 - 6.10 x10(3)/[facility] LABORATORY Lymph % 31.8 % [facility] Lymphocytes Abs 3.0 0.9 - 3.2 x10(3)/[facility] LABORATORY Monocyte % 8.9 % [facility] Monocyte Abs 0.8 0.3 - 0.9 x10(3)/[facility] LABORATORY Eos % 4.2 % [facility] Eosinophils Abs 0.4 0.0 - 0.4 x10(3)/[facility] LABORATORY Basophil % 0.8 % [facility] Baso Absolute 0.1 0.0 - 0.1 x10(3)/[facility] LABORATORY Immature Gran % 0.30 % [facility] Comment: Immature granulocytes(IG's)percentage and absolute count will include metamyelocytes, myelocytes, and promyelocytes. Blood smears from CBCs yielding IG's will be scanned manually for concordance. If this scan disagrees with the automated IG or if promyelocytes are noted, a manual differential will be performed. Immature Gran Absolute 0.03 0.00 - 0.04 x10(3)/[facility] LABORATORY Blood 06/21/2023 3:25 AM EDT 06/21/2023 3:45 AM EDT Narrative Resulting Agency Comment Spec In Lab Terrence Keating MD HEMATOLOGY ORDERABLE S [facility] [place] [address] * Hemogram (06/21/2023 3:25 AM EDT) [facility] White Blood Cell 9.3 4.0 - 9.5 x10(3)/[facility] LABORATORY Red Blood Cell 4.74 4.00 - 5.21 x10(6)/[facility] LABORATORY Hemoglobin 14.9 11.7 - 15.5 g/dL [facility] Hematocrit 44.2 35.7 - 45.8 % [facility] Mean Cell Volume 93.2 82.6 - 94.4 fL [facility] Mean Cell Hemoglobin 31.4 27.1 - 32.0 pg [facility] Mean Cell Hemoglobin Concentration 33.7 31.7 - 35.0 g/dL [facility] Platelet 279 145 - 357 x10(3)/[facility] LABORATORY RDW Standard Deviation 44.7 37.0 - 46.0 [facility] LABORATORY RDW coefficient of variation 13.1 11.5 - 14.1 % [facility] Mean Platelet Volume 11.1 7.6 - 12.9 fL [facility] NRBC% auto 0.0 % [facility] NRBC Absolute 0.000 0.000 - 0.000 x10(3)/[facility] LABORATORY Blood 06/21/2023 3:25 AM EDT 06/21/2023 3:45 AM EDT Narrative Resulting Agency Comment Spec In Lab Terrence Keating MD HEMATOLOGY ORDERABLE S [facility] [place] [address] * (ABNORMAL) Basic Metabolic Panel (non-fasting) (06/21/2023 3:25 AM EDT) [facility] Glucose 95 65 - 199 mg/dL MAYO [...] CHEMISTRY ORDERABL ES [facility] [place] [address] * (ABNORMAL) Phosphorus (06/21/2023 3:25 AM EDT) Phosphorus 5.1(H) 2.5 - 4.5 mg/dL [facility] Blood 06/21/2023 3:25 AM EDT 06/21/2023 3:45 AM EDT Narrative Resulting Agency Comment Spec In Lab Eufemia Copeland MD CHEMISTRY ORDERABL ES Performing Organization Address City/[facility]/ZIP Co de Phone Number [facility] [place] [address] * Magnesium (06/21/2023 3:25 AM EDT) Pathologist [facility] Magnesium 1.04 0.69 - 1.07 mmol/L [facility] Blood 06/21/2023 3:25 AM EDT 06/21/2023 3:45 AM EDT Narrative Resulting Agency Comment Spec In Lab Eufemia Copeland MD CHEMISTRY ORDERABL ES Performing Organization Address City/[facility] Co de Phone Number [facility] [place] [address] * (ABNORMAL) Differential, Automated (06/20/2023 3:32 AM EDT) Pathologist [facility] Neutrophil % 52.5 % [facility] Neutrophil Absolute 5.28 1.70 - 6.10 x10(3)/mc L [facility] Lymph % 32.4 % [facility] Lymphocytes Abs 3.3(H) 0.9 - 3.2 x10(3)/mc L [facility] Monocyte % 9.7 % [facility] Monocyte Abs 1.0(H) 0.3 - 0.9 x10(3)/mc L [facility] Eos % 4.3 % [facility] Eosinophils Abs 0.4 0.0 - 0.4 x10(3)/mc L [facility] Basophil % 0.7 % [facility] Baso Absolute 0.1 0.0 - [...] Absolute 0.04 0.00 - 0.04 x10(3)/ L [facility] Blood 06/20/2023 3:32 AM EDT 06/20/2023 3:47 AM EDT Narrative Resulting Agency Comment Spec In Lab Terrence Keating MD HEMATOLOGY ORDERABLE S [facility] [place] [address] * (ABNORMAL) Hemogram (06/20/2023 3:32 AM EDT) White Blood Cell 10.1(H) 4.0 - 9.5 x10(3)/[facility] LABORATORY Red Blood Cell 4.57 4.00 - 5.21 x10(6)/ L [facility] Hemoglobin 14.2 11.7 - [...] HOSPITAL LABORATORY Platelet 253 145 - 357 x10(3)/ L [facility] RDW Standard Deviation 43.7 37.0 - 46.0 fL [facility] RDW coefficient of variation 13.2 11.5 - 14.1 % [facility] Mean Platelet Volume 10.8 7.6 - 12.9 fL [facility] NRBC% auto 0.0 % [facility] NRBC Absolute 0.000 0.000 - 0.000 x10(3)/mc L [facility] Blood 06/20/2023 3:32 AM EDT 06/20/2023 3:47 AM EDT Narrative Resulting Agency Comment Spec In Lab Terrence Keating MD HEMATOLOGY ORDERABLE S [facility] [place] [address] * (ABNORMAL) Basic Metabolic Panel (non-fasting) (06/20/2023 [...] Performing Organization Address [facility] Co de Phone Number [facility] [place] [address] * Phosphorus (06/20/2023 3:32 AM EDT) Phosphorus 4.3 2.5 - 4.5 mg/dL [facility] Blood 06/20/2023 3:32 AM EDT 06/20/2023 3:47 AM EDT Narrative Resulting Agency Comment Spec In Lab Eufemia Copeland MD CHEMISTRY ORDERABL ES Performing Organization Address [facility] Co de Phone Number [facility] [place] [address] * Magnesium (06/20/2023 3:32 AM EDT) Magnesium 1.00 0.69 - 1.07 mmol/L [facility] Blood 06/20/2023 3:32 AM EDT 06/20/2023 3:47 AM EDT Narrative Resulting Agency Comment Spec In Lab Eufemia Copeland MD CHEMISTRY ORDERABL ES Performing Organization Address [facility] Co de Phone Number [facility] [place] [address] * Phosphorus (06/19/2023 5:26 PM EDT) Phosphorus 4.0 2.5 - 4.5 mg/dL [facility] Blood 06/19/2023 5:26 PM EDT 06/19/2023 5:32 PM EDT Narrative Resulting Agency Comment Spec In Lab Eufemia Copeland MD CHEMISTRY ORDERABL ES Performing Organization Address [facility] Co de Phone Number [facility] [place] [address] * Magnesium (06/19/2023 5:26 PM EDT) Magnesium 0.98 0.69 - 1.07 mmol/L [facility] Blood 06/19/2023 5:26 PM EDT 06/19/2023 5:32 PM EDT Narrative Resulting Agency Comment Spec In Lab Eufemia Copeland MD CHEMISTRY ORDERABL ES Performing Organization Address [facility] Co de Phone Number [facility] [place] [address] * (ABNORMAL) Basic Metabolic Panel (non-fasting) (06/19/2023 [...] de Phone Number [facility] [place] [address] * EKG 12 Lead (06/19/2023 4:24 AM EDT) Ventricular rate 66 BPM MUSE SYSTEM Atrial Rate 66 BPM MUSE SYSTEM P-R Interval 188 ms MUSE SYSTEM QRS Duration 92 ms MUSE SYSTEM Q-T Interval 484 ms MUSE SYSTEM QTC Calculated (Bezet) 507 ms MUSE SYSTEM Calculated P [place] 32 degrees MUSE SYSTEM Calculated R [place] 22 degrees MUSE SYSTEM Calculated T [place] 47 degrees MUSE SYSTEM INTERPRETATION Normal sinus rhythm Nonspecific ST abnormality Prolonged QT Abnormal ECG When compared with ECG of 15-JUN-2023 10:50, No significant change was found Confirmed by MD AKIRA, CINDY ([id number]) on 06/19/2023 2:42:42 PM MUSE SYSTEM 06/19/2023 4:24 AM EDT 06/19/2023 2:42 PM EDT Terrence Keating MD ECG ORDERABLES Performing Organization Address City/[facility]/ZIP Co de Phone Number MUSE SYSTEM * [...] de Phone Number [facility] [place] [address] * Differential, Automated (06/19/2023 3:22 AM EDT) Neutrophil % 54.0 % [facility] Neutrophil Absolute 5.08 1.70 - 6.10 x10(3)/[facility] LABORATORY Lymph % 30.7 % [facility] Lymphocytes Abs 2.9 0.9 - 3.2 x10(3)/[facility] LABORATORY Monocyte % 10.0 % [facility] Monocyte Abs 0.9 0.3 - 0.9 x10(3)/[facility] LABORATORY Eos % 4.5 % [facility] Eosinophils Abs 0.4 0.0 - 0.4 x10(3)/[facility] LABORATORY Basophil % 0.6 % [facility] Baso Absolute 0.1 0.0 - 0.1 x10(3)/[facility] LABORATORY Immature Gran % 0.20 % MAY[facility] [...] 0.04 x10(3)/[facility] LABORATORY Blood 06/19/2023 3:22 AM EDT 06/19/2023 3:47 AM EDT Narrative Resulting Agency Comment Spec In Lab Terrence Keating MD HEMATOLOGY ORDERABLE S Performing Organization Address City/[facility]/ZIP Co de Phone Number [facility] [place] [address] * Hemogram (06/19/2023 3:22 AM EDT) White Blood Cell 9.4 4.0 - 9.5 x10(3)/[facility] LABORATORY Red Blood Cell 4.48 4.00 - 5.21 x10(6)/[facility] LABORATORY Hemoglobin 13.9 11.7 - 15.5 g/dL [facility] Hematocrit 41.7 35.7 - 45.8 % [facility] Mean Cell Volume 93.1 82.6 - 94.4 fL [facility] Mean Cell Hemoglobin 31.0 27.1 - 32.0 pg [facility] Mean Cell Hemoglobin Concentration 33.3 31.7 - 35.0 g/dL [facility] Platelet 244 145 - 357 x10(3)/[facility] LABORATORY RDW Standard Deviation 44.2 37.0 - 46.0 [facility] LABORATORY RDW coefficient of variation 12.9 11.5 - 14.1 % [facility] Mean Platelet Volume 10.9 7.6 - 12.9 fL [facility] NRBC% auto 0.0 % [facility] NRBC Absolute 0.000 0.000 - 0.000 x10(3)/[facility] LABORATORY Blood 06/19/2023 3:22 AM EDT 06/19/2023 3:47 AM EDT Narrative Resulting Agency Comment Spec In Lab Terrence Keating MD HEMATOLOGY ORDERABLE S [facility] [place] [address] * Phosphorus (06/19/2023 3:22 AM EDT) Phosphorus 4.1 2.5 - 4.5 mg/dL [facility] Blood 06/19/2023 3:22 AM EDT 06/19/2023 3:47 AM EDT Narrative Resulting Agency Comment Spec In Lab Eufemia Copeland MD CHEMISTRY ORDERABL ES Performing Organization Address City/[facility]/ZIP Co de Phone Number [facility] [place] [address] * Magnesium (06/19/2023 3:22 AM EDT) Magnesium 1.00 0.69 - 1.07 mmol/L [facility] Blood 06/19/2023 3:22 AM EDT 06/19/2023 3:47 AM EDT Narrative Resulting Agency Comment Spec In Lab Eufemia Copeland MD CHEMISTRY ORDERABL ES Performing Organization Address [facility] Co de Phone Number [facility] [place] [address] * (ABNORMAL) Basic Metabolic Panel (non-fasting) (06/18/2023 [...] CHEMISTRY ORDERABL ES [facility] [place] [address] * (ABNORMAL) Basic Metabolic Panel (non-fasting) (06/18/2023 4:19 AM EDT) Pathologist [facility] Glucose 96 65 - 199 mg/dL MAY[facility] [...] CHEMISTRY ORDERABL ES [facility] [place] [id number] * Differential, Automated (06/18/2023 4:19 AM EDT) Neutrophil % 54.1 % [facility] Neutrophil Absolute 4.52 1.70 - 6.10 x10(3)/[facility] Lymph % 31.0 % [facility] Lymphocytes Abs 2.6 0.9 - 3.2 x10(3)/[facility] Monocyte % 9.2 % [facility] Monocyte Abs 0.8 0.3 - 0.9 x10(3)/[facility] Eos % 4.9 % [facility] Eosinophils Abs 0.4 0.0 - 0.4 x10(3)/[facility] Basophil % 0.6 % [facility] Baso Absolute 0.0 0.0 - 0.1 x10(3)/[facility] Immature Gran % 0.20 % MAY[facility] [...] 0.04 x10(3)/[facility] Blood 06/18/2023 4:19 AM EDT 06/18/2023 4:40 AM EDT Narrative Resulting Agency Comment Spec In Lab Terrence Keating MD HEMATOLOGY ORDERABLE S [facility] [place] [address] * Hemogram (06/18/2023 4:19 AM EDT) White Blood Cell 8.4 4.0 - 9.5 x10(3)/[facility] Red Blood Cell 4.70 4.00 - 5.21 x10(6)/[facility] Hemoglobin 14.5 11.7 - 15.5 g/dL [facility] Hematocrit 42.8 35.7 - 45.8 % [facility] Mean Cell Volume 91.1 82.6 - 94.4 fL [facility] Mean Cell Hemoglobin 30.9 27.1 - 32.0 pg [facility] Mean Cell Hemoglobin Concentration 33.9 31.7 - 35.0 g/dL [facility] Platelet 258 145 - 357 x10(3)/[facility] RDW Standard Deviation 43.6 37.0 - 46.0 fL [facility] RDW coefficient of variation 13.0 11.5 - 14.1 % [facility] Mean Platelet Volume 10.7 7.6 - 12.9 fL [facility] NRBC% auto 0.0 % [facility] NRBC Absolute 0.000 0.000 - 0.000 x10(3)/mcL [facility] Blood 06/18/2023 4:19 AM EDT 06/18/2023 4:40 AM EDT Narrative Resulting Agency Comment Spec In Lab Terrence Keating MD HEMATOLOGY ORDERABLE S Performing Organization Address City/[facility]/ZIP Co de Phone Number [facility] [place] [address] * Phosphorus (06/18/2023 4:19 AM EDT) Phosphorus 3.7 2.5 - 4.5 mg/dL [facility] Blood 06/18/2023 4:19 AM EDT 06/18/2023 4:40 AM EDT Narrative Resulting Agency Comment Spec In Lab Eufemia Copeland MD CHEMISTRY ORDERABL ES Performing Organization Address [facility] Co de Phone Number [facility] [place] [address] * Magnesium (06/18/2023 4:19 AM EDT) Magnesium 1.02 0.69 - 1.07 mmol/L [facility] Blood 06/18/2023 4:19 AM EDT 06/18/2023 4:40 AM EDT Narrative Resulting Agency Comment Spec In Lab Eufemia Copeland MD CHEMISTRY ORDERABL ES Performing Organization Address City/[facility]/ZIP Co de Phone Number [facility] [place] [address] * Phosphorus (06/17/2023 2:26 PM EDT) Phosphorus 2.8 2.5 - 4.5 mg/dL [facility] Blood 06/17/2023 2:26 PM EDT 06/17/2023 2:36 PM EDT Narrative Resulting Agency Comment Spec In Lab Eufemia Copeland MD CHEMISTRY ORDERABL ES Performing Organization Address City/[facility]/ZIP Co de Phone Number [facility] [place] [address] * Magnesium (06/17/2023 2:26 PM EDT) Pathologist [facility] Magnesium 1.01 0.69 - 1.07 mmol/L [facility] Blood 06/17/2023 2:26 PM EDT 06/17/2023 2:36 PM EDT Narrative Resulting Agency Comment Spec In Lab Eufemia Copeland MD CHEMISTRY ORDERABL ES Performing Organization Address [facility] Co de Phone Number [facility] [place] [address] * (ABNORMAL) Basic Metabolic Panel (non-fasting) (06/17/2023 2:26 PM EDT) [facility] Glucose 103 65 - 199 mg/dL MAY[facility] [...] CHEMISTRY ORDERABL ES [facility] [place] [address] * XR Abdomen Flat & Upright (06/17/2023 [...] have questions please contact the health care director rn that requested your imaging first. ? Electronically signed by: Wilton Cabrera MD, [facility] ([phone]), at 06/17/2023 5:30 PM Narrative 06/17/2023 5:30 [...] who have questions please contactthe health care director rn that requested your imaging first. Electronically signed by: Wilton Cabrera MD, [facility]([phone]), at 06/17/2023 5:30 PM Eufemia Copeland MD [...] MD CHEMISTRY ORDERABLES [facility] [place] [address] * Differential, Automated (06/17/2023 1:11 AM EDT) Neutrophil % 54.5 % [facility] Neutrophil Absolute 5.20 1.70 - 6.10 x10(3)/[facility] Lymph % 31.4 % [facility] Lymphocytes Abs 3.0 0.9 - 3.2 x10(3)/[facility] Monocyte % 9.8 % [facility] Monocyte Abs 0.9 0.3 - 0.9 x10(3)/[facility] Eos % 3.4 % [facility] Eosinophils Abs 0.3 0.0 - 0.4 x10(3)/[facility] Basophil % 0.5 % [facility] Baso Absolute 0.0 0.0 - 0.1 x10(3)/[facility] Immature Gran % 0.40 % [facility] Comment: Immature granulocytes(IG's)percentage and absolute count will include metamyelocytes, myelocytes, and promyelocytes. Blood smears from CBCs yielding IG's will be scanned manually for concordance. If this scan disagrees with the automated IG or if promyelocytes are noted, a manual differential will be performed. Immature Gran Absolute 0.04 0.00 - 0.04 x10(3)/[facility] Blood 06/17/2023 1:11 AM EDT 06/17/2023 1:16 AM EDT Narrative Resulting Agency Comment Spec In Lab Terrence Keating MD HEMATOLOGY ORDERABLE S [facility] [place] [address] * Hemogram (06/17/2023 1:11 AM EDT) White Blood Cell 9.5 4.0 - 9.5 x10(3)/[facility] Red Blood Cell 4.60 4.00 - 5.21 x10(6)/[facility] Hemoglobin 14.2 11.7 - 15.5 g/dL [facility] Hematocrit 43.0 35.7 - 45.8 % [facility] Mean Cell Volume 93.5 82.6 - 94.4 fL [facility] Mean Cell Hemoglobin 30.9 27.1 - 32.0 pg [facility] Mean Cell Hemoglobin Concentration 33.0 31.7 - 35.0 g/dL [facility] Platelet 256 145 - 357 x10(3)/[facility] RDW Standard Deviation 45.0 37.0 - 46.0 [facility] RDW coefficient of variation 13.2 11.5 - 14.1 % [facility] Mean Platelet Volume 10.9 7.6 - 12.9 fL [facility] NRBC% auto 0.0 % [facility] NRBC Absolute 0.000 0.000 - 0.000 x10(3)/[facility] Blood 06/17/2023 1:11 AM EDT 06/17/2023 1:16 AM EDT Narrative Resulting Agency Comment Spec In Lab Terrence Keating MD HEMATOLOGY ORDERABLE S Performing Organization Address [facility]/ZIP Co de Phone Number [facility] [place] [address] * Magnesium (06/17/2023 1:11 AM EDT) Magnesium 0.96 0.69 - 1.07 mmol/L [facility] Blood 06/17/2023 1:11 AM EDT 06/17/2023 1:16 AM EDT Narrative Resulting Agency Comment Spec In Lab Eufemia Copeland MD CHEMISTRY ORDERABL ES Performing Organization Address [facility]/ZIP Co de Phone Number [facility] [place] [address] * (ABNORMAL) Basic Metabolic Panel (non-fasting) (06/17/2023 [...] MD CHEMISTRY ORDERABLES [facility] [place] [address] * (ABNORMAL) Basic Metabolic Panel (non-fasting) (06/16/2023 [...] CHEMISTRY ORDERABL ES [facility] [place] [address] * (ABNORMAL) Basic Metabolic Panel (non-fasting) (06/16/2023 [...] CHEMISTRY ORDERABL ES [facility] [place] [address] * (ABNORMAL) Basic Metabolic Panel (non-fasting) (06/16/2023 [...] tmp /read back by (Malia Mcintyre)/ 06/16/23 @302 Please note: ??Patients with WBC >100,000 may [...] Eufemia Copeland MD CHEMISTRY [place] [address] * (ABNORMAL) Magnesium (06/16/2023 3:30 AM EDT) [facility] Magnesium 1.09(H) 0.69 - 1.07 mmol/L [facility] Blood Venous Draw / Unknown 06/16/2023 3:30 AM EDT 06/16/2023 3:38 AM EDT Narrative Resulting Agency Comment Spec In Lab Eufemia Copeland MD CHEMISTRY [place] [address] * (ABNORMAL) Differential, Automated (06/16/2023 3:30 AM EDT) [facility] Neutrophil % 50.4 % [facility] Neutrophil Absolute 4.15 1.70 - 6.10 x10(3)/mc L [facility] Lymph % 33.7 % [facility] Lymphocytes Abs 2.8 0.9 - 3.2 x10(3)/mc L [facility] Monocyte % 11.8 % [facility] Monocyte Abs 1.0(H) 0.3 - 0.9 x10(3)/mc L [facility] Eos % 3.3 % [facility] Eosinophils Abs 0.3 0.0 - 0.4 x10(3)/mc L [facility] Basophil % 0.6 % [facility] Baso Absolute 0.0 0.0 - [...] HEMATOLOGY ORDERABLE S [facility] [place] [address] * Hemogram (06/16/2023 3:30 AM EDT) White Blood Cell 8.2 4.0 - 9.5 x10(3)/[facility] Red Blood Cell 4.69 4.00 - 5.21 x10(6)/[facility] Hemoglobin 14.5 11.7 - 15.5 g/dL [facility] Hematocrit 42.7 35.7 - 45.8 % [facility] Mean Cell Volume 91.0 82.6 - 94.4 fL [facility] Mean Cell Hemoglobin 30.9 27.1 - 32.0 pg [facility] Mean Cell Hemoglobin Concentration 34.0 31.7 - 35.0 g/dL [facility] Platelet 260 145 - 357 x10(3)/[facility] RDW Standard Deviation 43.5 37.0 - 46.0 [facility] RDW coefficient of variation 13.0 11.5 - 14.1 % [facility] Mean Platelet Volume 11.1 7.6 - 12.9 fL [facility] NRBC% auto 0.0 % [facility] NRBC Absolute 0.000 0.000 - 0.000 x10(3)/[facility] Blood 06/16/2023 3:30 AM EDT 06/16/2023 3:37 AM EDT Narrative Resulting Agency Comment Spec In Lab Terrence Keating MD HEMATOLOGY ORDERABLE S [facility] [place] [address] * (ABNORMAL) Basic Metabolic Panel (non-fasting) (06/16/2023 3:30 AM EDT) Glucose 110 65 - 199 mg/dL [facility] [...] /read back by Jolly Friedman / 06/16/23 0323 Please note: ??Patients with WBC >100,000 may [...] Performing Organization Address [facility] Co de Phone Number [facility] [place] [address] * Heparin (unfractionated) Level (06/16/2023 3:30 AM EDT) UF Heparin 0.64 IU/mL [facility] Comment: [...] MD HEMATOLOGY ORDERABLE S Performing Organization Address [facility] Co de Phone Number [facility] [place] [address] * Lipid Panel (Reflex Direct LDL) (06/16/2023 3:30 AM EDT) Cholesterol, Total 190 mg/dL [facility] Comment: Desirable: ? <200 mg/dL Borderline High: 200-239 mg/dL Higher: ?>ew=306 mg/dL Triglyceride 126 mg/dL [facility] Comment: Normal: ?<150 mg/dL Borderline High: 150-199 mg/dL High: ?200-499 mg/dL Very High: ? >au=697 mg/dL HDL Cholesterol 50 mg/dL [facility] Comment: Females: High Risk: <50 mg/dL Males: High Risk: <40 mg/dL LDL Cholesterol 115 mg/dL [facility] Comment: Desirable: ? <100 mg/dL Above Desirable: 100-129 mg/dL Borderline High: 130-159 mg/dL High: ?160-189 mg/dL Very High: ? >kl=939 mg/dL Lipid Interpretation See Note [facility] [...] ACC/AHA Guidelines (most recently Ysabel et al. [facility] 12/09/21): For individuals with atherosclerotic cardiovascular disease (ASCVD)or LDL >fh=541 mg/dL, use a high-intensity statin (40-80 mg [...] MD CHEMISTRY ORDERABLES [facility] [place] [address] * (ABNORMAL) Basic Metabolic Panel (non-fasting) (06/15/2023 [...] CHEMISTRY ORDERABL ES [facility] [place] [address] * Heparin (unfractionated) Level (06/15/2023 9:33 PM EDT) UF Heparin 0.63 IU/mL [facility] Comment: [...] MD HEMATOLOGY ORDERABLE S Performing Organization Address City/[facility]/ZIP Co de Phone Number [facility] [place] [address] * (ABNORMAL) Magnesium (06/15/2023 5:47 PM EDT) [facility] Magnesium 1.10(H) 0.69 - 1.07 mmol/L [facility] Blood Venous Draw / Unknown 06/15/2023 5:47 PM EDT 06/15/2023 6:10 PM EDT Narrative Resulting Agency Comment Spec In Lab Terrence Keating MD CHEMISTRY ORDERABLES Performing Organization Address [facility] Co de Phone Number [facility] [place] [address] * (ABNORMAL) Basic Metabolic Panel (non-fasting) (06/15/2023 5:47 PM EDT) [facility] Glucose 147 65 - 199 mg/dL [facility] [...] CHEMISTRY ORDERABL ES [facility] [place] [address] * Rapid Drug Screen w/o Confirmation, Urine [...] marijuana metabolites screen detects the THC metabolite (41-ipe-0-carboxy-delta 9-THC) at concentrations >20 ng/mL. A ? [...] of this test were determined by [facility] in accordance with CLIA requirements. [...] characteristics of this test were determined by [facility] in accordance with CLIA requirements. [...] of this test were determined by [facility] in accordance with CLIA requirements. [...] de Phone Number [facility] [place] [address] * Rapid Drug Screen, Urine (TEE Request) (06/15/2023 4:46 PM EDT) TEE Conf Requested No [facility] TEE Requested See Comment [facility] Comment:Refer to Rapid Drug Screen w/o Confirmation, Urine for results. Urine 06/15/2023 4:46 PM EDT 06/15/2023 5:30 PM EDT Narrative Resulting Agency Comment Spec In Lab Eufemia Copeland MD URINE ORDERABLES Performing Organization Address [facility]/ZIP Co de Phone Number [facility] [place] [address] * (ABNORMAL) Basic Metabolic Panel (non-fasting) (06/15/2023 [...] Performing Organization Address [facility] Co de Phone Number [facility] [place] [address] * Heparin (unfractionated) Level (06/15/2023 2:29 PM EDT) Pathologist [facility] UF Heparin 0.93 IU/mL [facility] Comment: [...] MD HEMATOLOGY ORDERABLE S Performing Organization Address [facility] Co de Phone Number [facility] [place] [address] * EKG 12 Lead (06/15/2023 10:50 AM EDT) [facility] Ventricular rate 55 BPM MUSE SYSTEM Atrial Rate 55 BPM MUSE SYSTEM P-R Interval 184 ms MUSE SYSTEM QRS Duration 96 ms MUSE SYSTEM Q-T Interval 590 ms MUSE SYSTEM QTC Calculated (Bezet) 565 ms MUSE SYSTEM Calculated P [place] 54 degrees MUSE SYSTEM Calculated R [place] 54 degrees MUSE SYSTEM Calculated T [place] 13 degrees MUSE SYSTEM INTERPRETATION Sinus bradycardia with sinus arrhythmia Marked ST abnormality, possible inferior subendocardial injury Long QT interval Abnormal ECG When compared with ECG of 15-JUN-2023 02:17, Nonspecific T wave abnormality has replaced inverted T waves in Lateral leads Confirmed by Kai Haider ([id number]) on 06/16/2023 3:52:04 PM MUSE SYSTEM 06/15/2023 [...] Performing Organization Address [facility]/ZIP Co de Phone Number [facility] [place] [address] * Heparin (unfractionated) Level (06/15/2023 8:18 AM EDT) UF Heparin 0.70 IU/mL [facility] Comment: [...] MD HEMATOLOGY ORDERABLE S Performing Organization Address [facility]/ZIP Co de Phone Number [facility] [place] [address] * (ABNORMAL) Troponin (06/15/2023 8:18 AM EDT) Troponin-T, High Sensitivity 33(H) <=14 ng/L [facility] [...] troponin value can be found in the [facility] Test Catalog Troponin - [facility] Test Catalog Reference: Fourth [place] Definition of Myocardial Infarction. Journal of the [place] [employer] 2018;72:4822-4959 Blood 06/15/2023 8:18 AM EDT 06/15/2023 8:34 AM EDT Narrative Resulting Agency Comment Spec In Lab Terrence Keating MD CHEMISTRY ORDERABLES [facility] [place] [address] * Differential, Automated (06/15/2023 4:28 AM EDT) Neutrophil % 48.0 % [facility] Neutrophil Absolute 3.20 1.70 - 6.10 x10(3)/[facility] Lymph % 35.8 % [facility] Lymphocytes Abs 2.4 0.9 - 3.2 x10(3)/[facility] Monocyte % 11.4 % [facility] Monocyte Abs 0.8 0.3 - 0.9 x10(3)/[facility] Eos % 3.7 % [facility] Eosinophils Abs 0.2 0.0 - 0.4 x10(3)/[facility] Basophil % 1.0 % [facility] Baso Absolute 0.1 0.0 - 0.1 x10(3)/[facility] Immature Gran % 0.10 % [facility] [...] 0.04 x10(3)/[facility] Blood 06/15/2023 4:28 AM EDT 06/15/2023 4:37 AM EDT Narrative Resulting Agency Comment Spec In Lab Terrence Keating MD HEMATOLOGY ORDERABLE S [facility] [place] [address] * (ABNORMAL) Hemogram (06/15/2023 4:28 AM EDT) White Blood Cell 6.7 4.0 - 9.5 x10(3)/ L [facility] Red Blood Cell 5.09 4.00 - 5.21 x10(6)/ L [facility] Hemoglobin 16.1(H) [...] HOSPITAL LABORATORY Platelet 253 145 - 357 x10(3)/ L [facility] RDW Standard Deviation 45.5 37.0 - 46.0 fL [facility] RDW coefficient of variation 13.0 11.5 - 14.1 % [facility] Mean Platelet Volume 10.6 7.6 - 12.9 fL [facility] NRBC% auto 0.0 % [facility] NRBC Absolute 0.000 0.000 - 0.000 x10(3)/mc L [facility] Blood 06/15/2023 4:28 AM EDT 06/15/2023 4:37 AM EDT Narrative Resulting Agency Comment Spec In Lab Terrence Keating MD HEMATOLOGY ORDERABLE S [facility] [place] [address] * (ABNORMAL) Troponin (06/15/2023 4:28 AM EDT) [...] troponin value can be found in the [facility] Test Catalog Troponin - [facility] Laboratory Test Catalog Reference: Fourth [place] Definition of Myocardial Infarction. Journal of the [place] [employer] 2018;72:9285-6216 Blood 06/15/2023 4:28 AM EDT 06/15/2023 4:37 AM EDT Narrative Resulting Agency Comment Spec In Lab Terrence Keating MD CHEMISTRY ORDERABLES Performing Organization Address [facility]/ZIP Co de Phone Number [facility] [place] [address] * (ABNORMAL) Prothrombin Time (06/15/2023 4:28 AM [...] MD HEMATOLOGY ORDERABLE S Performing Organization Address City/[facility]/ZIP Co de Phone Number [facility] [place] [address] * (ABNORMAL) Hepatic Function Panel (06/15/2023 4:28 [...] Keating MD CHEMISTRY ORDERABLES Performing Organization Address City/[facility]/ZIP Co de Phone Number [facility] [place] [address] * (ABNORMAL) pro-Brain Natriuretic Peptide (06/15/2023 4:28 AM EDT) NT-proBNP 1,953(H) <=124 pg/mL [facility] Blood 06/15/2023 4:28 AM EDT 06/15/2023 4:37 AM EDT Narrative Resulting Agency Comment Spec In Lab Terrence Keating MD CHEMISTRY ORDERABLES Performing Organization Address City/[facility]/ZIP Co de Phone Number [facility] [place] [address] * TSH (06/15/2023 4:28 AM EDT) Thyroid Stimulating Hormone 2.98 0.27 - 4.20 mcIU/mL [facility] Comment: Reference Interval (mcIU/mL): Females: ??First Trimester: 0.23-3.88 ??Second Trimester: 0.22-3.90 ??Third Trimester: 0.44-4.66 Blood 06/15/2023 4:28 AM EDT 06/15/2023 4:37 AM EDT Narrative Resulting Agency Comment Spec In Lab Terrence Keating MD CHEMISTRY ORDERABLES Performing Organization Address City/[facility]/ZIP Co de Phone Number [facility] [place] [address] * Phosphorus (06/15/2023 4:28 AM EDT) Phosphorus 4.4 2.5 - 4.5 mg/dL [facility] Blood 06/15/2023 4:28 AM EDT 06/15/2023 4:37 AM EDT Narrative Resulting Agency Comment Spec In Lab Terrence Keating MD CHEMISTRY ORDERABLES Performing Organization Address City/[facility]/ZIP Co de Phone Number [facility] [place] [address] * (ABNORMAL) Magnesium (06/15/2023 4:28 AM EDT) Magnesium 1.22(H) 0.69 - 1.07 mmol/L [facility] Blood 06/15/2023 4:28 AM EDT 06/15/2023 4:37 AM EDT Narrative Resulting Agency Comment Spec In Lab Terrence Keating MD CHEMISTRY ORDERABLES Performing Organization Address City/[facility]/ZIP Co de Phone Number [facility] [place] [address] * Calcium (06/15/2023 4:28 AM EDT) Calcium 9.7 8.5 - 10.5 mg/dL [facility] Blood 06/15/2023 4:28 AM EDT 06/15/2023 4:37 AM EDT Narrative Resulting Agency Comment Spec In Lab Terrence Keating MD CHEMISTRY ORDERABLES Performing Organization Address City[facility] Co de Phone Number [facility] [place] [address] * (ABNORMAL) Basic Metabolic Panel (non-fasting) (06/15/2023 4:28 AM EDT) Glucose 112 65 - 199 mg/dL [facility] [...] MD CHEMISTRY ORDERABLES [facility] [place] [address] * EKG 12 Lead (06/15/2023 2:17 AM EDT) Ventricular rate 57 BPM MUSE SYSTEM Atrial Rate 57 BPM MUSE SYSTEM P-R Interval 200 ms MUSE SYSTEM QRS Duration 94 ms MUSE SYSTEM Q-T Interval 606 ms MUSE SYSTEM QTC Calculated (Bezet) 591 ms MUSE SYSTEM Calculated P [place] 66 degrees MUSE SYSTEM Calculated R [place] 74 degrees MUSE SYSTEM Calculated T [place] -33 degrees MUSE SYSTEM INTERPRETATION Sinus bradycardia Possible Lateral infarct (cited on or before 17-APR-2023) Marked ST abnormality, possible inferior subendocardial injury Prolonged QTc Abnormal ECG When compared with ECG of 20-APR-2023 10:23, Nonspecific T wave changes QT has lengthened Confirmed by fellow MD Hansa, Sindhu ([id number]) on 06/15/2023 4:36:19 PM Confirmed by MD Petey, Kia ([id number]) on 06/15/2023 4:51:21 PM MUSE SYSTEM 06/15/2023 [...] 0854 (Given - Provider: Heidy Paris RN)1332 ([facility] Hold - Provider: Admin Adt - Reason: Transfer to a Procedural area)1548 ([facility] Unhold - Provider: Admin Adt) [...] Wed06/15/23 at 1700, Until Discontinued, Routine 1332 ([facility] Hold - Provider: Admin Adt - Reason: Transfer to a Procedural area)1548 ([facility] Unhold - Provider: Admin Adt)1656 (Given - Provider: Heidy Paris RN) 1708 (Given - Provider: Heidy Paris RN) clopidogreL (Plavix) tablet 75 mg (CANCELED) 75 mg, Oral, DAILY, First dose on Wed07/03/23 at 0900, Until Discontinued, Routine 0854 (Given - Provider: Heidy Paris RN)1332 ([facility] Hold - Provider: Admin Adt - Reason: Transfer to a Procedural area)1548 ([facility] Unhold - Provider: Admin Adt) 0855 (Given - Provider: Heidy Paris RN) 0930 (Given - Provider: Heidy Paris RN) DULoxetine DR (Cymbalta) capsule 60 mg 60 mg, Oral, DAILY, First dose on Wed06/15/23 at 0900, Until Discontinued, Routine 0853 (Given - Provider: Heidy Paris RN)1332 ([facility] Hold - Provider: Admin Adt - Reason: Transfer to a Procedural area)1548 ([facility] Unhold - Provider: Admin Adt) 0856 (Given - Provider: Heidy Paris RN) 0931 (Given - Provider: Heidy Paris RN) gabapentin (Neurontin) capsule 600 mg 600 mg, Oral, NIGHTLY, First dose on Wed06/15/23 at 0200, Until Discontinued, Routine 1332 ([facility] Hold - Provider: Admin Adt - Reason: Transfer to a Procedural area)1548 ([facility] Unhold - Provider: Admin Adt)2136 [...] Paris RN - Reason: Patient/family refused)1332 ([facility] Hold - Provider: Admin Adt - Reason: Transfer to a Procedural area)1548 ([facility] Unhold - Provider: Admin Adt) 1000 (Not Given - Provider: Heidy Paris RN - Reason: Patient/family refused) 1000 (Not Given - Provider: Heidy Paris RN - Reason: Patient/family refused) melatonin tablet 6 mg 6 mg, Oral, NIGHTLY, First dose on Wed06/15/23 at 0200, Until Discontinued 1332 ([facility] Hold - Provider: Admin Adt - Reason: Transfer to a Procedural area)1548 ([facility] Unhold - Provider: Admin Adt)2136 (Given - Provider: Lorena Torres, ERWIN) 2116 (Given - Provider: Machelle Busch, ERWIN) metoprolol succinate XL (Toprol-XL) tablet 12.5 mg 12.5 mg, Oral, DAILY, First dose on Wed06/21/23 at 0900, Until Discontinued, DO NOT CRUSH OR OPEN Hold for HR <55 and Sbp <90, Routine 0854 (Given - Provider: Heidy Paris RN)1332 ([facility] Hold - Provider: Admin Adt - Reason: Transfer to a Procedural area)1548 ([facility] Unhold - Provider: Admin Adt) 0900 (Not Given - Provider: Heidy Paris RN - Reason: Order parameters not met) 0930 (Given - Provider: Heidy Paris RN) pantoprazole EC (Protonix) tablet 40 mg 40 mg, Oral, DAILY, First dose on Wed06/15/23 at 0900, Until Discontinued 0854 (Given - Provider: Heidy Paris RN)1332 ([facility] Hold - Provider: Admin Adt - Reason: Transfer to a Procedural area)1548 ([facility] Unhold - Provider: Admin Adt) [...] Paris RN - Reason: Patient/family refused)1332 ([facility] Hold - Provider: Admin Adt - Reason: Transfer to a Procedural area)1548 ([facility] Unhold - Provider: Admin Adt) [...] (Given - Provider: Heidy Paris RN)1332 ([facility] Hold - Provider: Admin Adt - Reason: Transfer to a Procedural area)1548 ([facility] Unhold - Provider: Admin Adt)2135 [...] Paris RN - Reason: Patient/family refused)1332 ([facility] Hold - Provider: Admin Adt - Reason: Transfer to a Procedural area)1548 ([facility] Unhold - Provider: Admin Adt) 1000 (Not Given - Provider: Heidy Paris RN - Reason: Patient/family refused) rOPINIRole (Requip) tablet 2 mg 2 mg, Oral, 2 TIMES DAILY, First dose on Wed06/15/23 at 0245, Until Discontinued, Routine 0853 (Given - Provider: Heidy Paris RN)1332 ([facility] Hold - Provider: Admin Adt - Reason: Transfer to a Procedural area)1548 ([facility] Unhold - Provider: Admin Adt)2136 [...] Paris RN - Reason: Patient/family refused)1332 ([facility] Hold - Provider: Admin Adt [...] 0859 (Given - Provider: Heidy Paris RN)1332 ([facility] Hold - Provider: Admin Adt - Reason: Transfer to a Procedural area)1548 ([facility] Unhold - Provider: Admin Adt)2099 [...] (Given - Provider: Heidy Paris RN)1332 ([facility] Hold - Provider: Admin Adt - Reason: Transfer to a Procedural area)1548 ([facility] Unhold - Provider: Admin Adt) 0856 (Given - Provider: Heidy Paris RN) 0931 (Given - Provider: Heidy Paris RN) topiramate (Topamax) tablet 100 mg 100 mg, Oral, NIGHTLY, First dose on Wed06/15/23 at 2100, Until Discontinued, Routine 1332 ([facility] Hold - Provider: Admin Adt - Reason: Transfer to a Procedural area)1548 ([facility] Unhold - Provider: Admin Adt)2137 [...] RN)1300 (Stopped - Provider: Heidy Paris, ERWIN)1332 ([facility] Hold - Provider: Admin Adt - Reason: Transfer to a Procedural area)1548 ([facility] Unhold - Provider: Admin Adt)1815 [...] pain medications are indicated., Routine 1332 ([facility] Hold - Provider: Admin Adt - Reason: Transfer to a Procedural area)1548 ([facility] Unhold - Provider: Admin Adt) albuteroL (Proventil, Ventolin) (2.5 mg/3 mL) (0.083 %) nebulizer solution 2.5 mg 2.5 mg, Nebulization, EVERY 4 HOURS PRN, Starting on Wed07/04/23 at 0857, Until Wed07/09/23 at 1844, Wheezing, Routine 1332 ([facility] Hold - Provider: Admin Adt - Reason: Transfer to a Procedural area)1548 ([facility] Unhold - Provider: Admin Adt) lidocaine (Xylocaine) 1% (10 mg/mL) injection 3 mg 3 mg (0.3 mL), Subcutaneous, ONCE PRN, 1 dose, Starting on Wed06/15/23 at 0146, Until Wed07/09/23 at 1844, for discomfort with PIV insertion, Routine 1332 ([facility] Hold - Provider: Admin Adt - Reason: Transfer to a Procedural area)1548 ([facility] Unhold - Provider: Admin Adt) loratadine (Claritin) tablet 10 mg 10 mg, Oral, DAILY PRN, Starting on Wed06/15/23 at 0146, Until Wed07/09/23 at 1844, allergies, Routine 1332 ([facility] Hold - Provider: Admin Adt - Reason: Transfer to a Procedural area)1548 ([facility] Unhold - Provider: Admin Adt) nitroGLYcerin (Nitrostat) disintegrating tablet 0.4 mg 0.4 mg, Sublingual, EVERY 5 MIN PRN, Starting on Wed06/22/23 at 1119, Until Wed07/09/23 at 1844, Chest pain, SL nitroglycerin may be repeated every 5 minutes as needed up to 3 doses, Routine 1332 ([facility] Hold - Provider: Admin Adt - Reason: Transfer to a Procedural area)1548 ([facility] Unhold - Provider: Admin Adt) 0951 (Given - Provider: Heidy Paris, ERWIN) ondansetron (pf) (Zofran) (2 mg/mL) injection 4 mg 4 mg, Intravenous, EVERY 8 HOURS PRN, Starting on Wed06/29/23 at 1449, Until Wed07/09/23 at 1844, Nausea 1332 ([facility] Hold - Provider: Admin Adt - Reason: Transfer to a Procedural area)1548 ([facility] Unhold - Provider: Admin Adt)2137 [...] from all sources in 24 hours. 1332 ([facility] Hold - Provider: Admin Adt - Reason: Transfer to a Procedural area)1548 ([facility] Unhold - Provider: Admin Adt)2137 (Given - Provider: Lorena Torres, ERWIN) 0855 (Given - Provider: Heidy Paris, ERWIN)2120 (Given - Provider: Machelle Busch, ERWIN) simethicone (Gas-X Chew) 80 mg chewable tablet 80 mg 80 mg, Oral, EVERY 6 HOURS PRN, Starting on Wed06/20/23 at 0941, Until Wed07/09/23 at 1844, Cramping, Routine 1332 ([facility] Hold - Provider: Admin Adt - Reason: Transfer to a Procedural area)1548 ([facility] Unhold - Provider: Admin Adt) [...] provided on this medication record., Routine 1332 ([facility] Hold - Provider: Admin Adt - Reason: Transfer to a Procedural area)1548 ([facility] Unhold - Provider: Admin Adt) [...] Routine documented in this encounter Care Teams Talent Management Manager Relationship Specialty Start Date End Date Polo Pearce PA [address] [place] [address] PCP - General Internal Medicine 06/09/21 documented as of this encounter
--- OUTSIDE RECORDS SUMMARY | 2024-01-24 21:11 | XMS_ITS | Encounter Summary ---
Author Organization [facility] [address] Care Team Providers Care Rn Angiography Name Role Phone Polo Pearce Primary Care Provider [phone] Encounter Details Date Type Department Care Team (Latest Contact Info) Description 04/30/2023 Travel Social History Tobacco Use Types Packs/Day Years Used Date Smoking Tobacco: Never Smokeless Tobacco: Never Alcohol Use Standard Drinks/Week Comments Never 0 (1 standard drink = 0.6 oz pur e alcohol) [facility] Utilities Answer Date Recorded In the [...] PM EST Office Visit Cardiology at [address] [place] [address] Jaspreet Kinsey MD [facility] [place] [address] documented as of this encounter Visit Diagnoses Not on filedocumented in this encounter Care Teams Rn Angiography Relationship Specialty Start Date End Date Polo Pearce PA [address] [place] [id number] PCP - General Internal Medicine 06/09/21 documented as of this encounter
--- OUTSIDE RECORDS SUMMARY | 2024-01-24 21:11 | XMS_ITS | Encounter Summary ---
[place] [address] Care Team Providers Care Manager Welding Name Role Phone Polo Pearce Primary Care Provider [phone] Reason for Referral * Diagnostic Test (Routine) - Closed Specialty Diagnoses / Procedures Referred By Jayant t Referred To Contact Diagnoses Mesenteric ischemia Procedures Duplex Study Visceral Arteries, Comp Mamie Marx SUPERINTENDENT GE[facility]ORAT[facility] [place] [address] [facility] [address] [place] [phone] Referral ID Status Reason Start Date Expiration Date V isits Requested Visits Authorized [id number] Closed Specialty Service Requested 06/28/2023 06/27/2024 1 1 Encounter Details Date Type Department Care Team (Late st Contact Info) Description 06/28/2023 Orders Only Vascular Surgery at [address] [phone] Mamie Marx APRN [facility] [place] [address] Mesenteric ischemia Social History Tobacco Use Types [...] PM EST Office Visit Cardiology at [address] [place] [phone] Jaspreet Kinsey MD [facility] [place] [address] documented as of this encounter Results * Duplex Study Visceral Arteries, Comp (08/03/2023 8:36 AM EDT) VB Text Report Department: Vascular Surgery Lab Patient: [id number] (LOIDA ROQUE) CPT: 38215 Referring Physician: MAMIE MARX ?? Phone: Indications: S/p SMA stenting (07/01) one month f/u, ? patency Findings: Unilateral ? Waveform ? PSV cm/s ??EDV cm/s ??Patent ?? Dary Visceral Aorta ? 71 ?14 ? Celiac Artery, Proximal ??Simpson-Biphasic ? 100 ?22 ? Celiac Artery, Mid ? Simpson-Biphasic ?99 ?19 ? Celiac Artery, Distal ?Simpson-Biphasic ?94 ?18 ? Sup Mes Artery Proximal [...] within mesenteric artery stents may differ from alutiiq arteries, with thresholds for diagnosis of significant stenosis likely being somewhat higher in stented arteries than alutiiq.% To date, there is no evidence based consensus of stent velocity criteria. Therefore, the current interpretation is based on alutiiq artery thresholds. Previous Celiac/Mesenteric Studies: Date ? [...] documented in this encounter Care Teams Manager Welding Relationship Specialty Start Date End Date Polo Pearce PA [address] [place] [address] PCP - General Internal Medicine 06/09/21 documented as of this encounter
--- OUTSIDE RECORDS SUMMARY | 2024-01-24 21:11 | XMS_ITS | Encounter Summary ---
[place] [address] Care Team Providers Care Senior Financial Consultant Name Role Phone Polo Pearce Primary Care Provider [phone] Reason for Visit * Diagnostic Test (Routine) - Closed Specialty Diagnoses / Procedures Referred By Jayant harris Referred To Contact Radiology Diagnoses Chest pain, unspecified type Procedures NM PET CT Cardiac Sarcoid Maegan Mike [facility] [place] [address] [place] [address] Referral ID Status Reason Start Date Expiration Date V isits Requested Visits Authorized [id number] Closed Specialty Service Requested 04/22/2023 10/20/2024 4 4 Encounter Details Date Type Department Care Team (Latest Contact Info) Description 04/30/2023 11:05 AM EST - 04/30/2023 11:59 PM EST Hospital Encounter [place] [address] Maegan Mike [facility] [place] [address] Discharge Disposition: Home Social History [...] by mouth nightly. empagliflozin (Jardiance) 10 mg TabletIndications:Accounting Tutor neal heart failure with preserved ejection fraction [...] PM EST Office Visit Cardiology at [address] [address] Jaspreet Kinsey MD [facility] [place] [address] documented as of this encounter Procedures Procedure [...] have questions please contact the health hearing care practitioner that requested your imaging first. ? 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 Following IV administration of 26.5 mCi technetium 99m sestamibi, SPECT-CT of the heart was obtained. Following IV injection of 8.8 mCi 34-jhgoos-9-deoxyglucose (FDG) and a standard uptake of approximately [...] obtained. Following IV injection of 8.8 mCi 27-kgsnjv-0-deoxyglucose (FDG) and astandard uptake of approximately 60 [...] who have questions please contactthe health hearing care practitioner that requested your imaging first. Electronically signed by: Humberto Qureshi MD, [facility]([phone]), at 05/06/2023 11:09 AM Maegan Mike [facility] [employer] [facility] PET ORDERABLE S documented in this encounter Visit Diagnoses Not on filedocumented in this encounter Care Teams Senior Financial Consultant Relationship Specialty Start Date End Date Polo Pearce PA [address] [place] [address] PCP - General Internal Medicine 06/09/21 documented as of this encounter
--- OUTSIDE RECORDS SUMMARY | 2024-01-24 21:11 | XMS_ITS | Encounter Summary ---
Author Organization [facility] [place] [address] Care Team Providers Care Desktop Support Specialist Name Role Phone Polo Pearce Primary Care Provider [phone] Encounter Details Date Type Department Care Team [...] th e electric, gas, oil, or water [facility] threatened to shut off services in [...] PM EST Office Visit Cardiology at [address] [place] [address] Jaspreet Kinsey MD [facility] [place] [address] documented as of this encounter Visit Diagnoses Not on filedocumented in this encounter Care Teams Desktop Support Specialist Relationship Specialty Start Date End Date Polo Pearce PA [address] [place] [address] PCP - General Internal Medicine 06/09/21 documented as of this encounter
--- OUTSIDE RECORDS SUMMARY | 2024-01-24 21:11 | XMS_ITS | Encounter Summary ---
[place] [address] Care Team Providers Care Electric Repair Supervisor Name Role Phone Polo Pearce Primary Care Provider [phone] Reason for Visit * Diagnostic Test (Routine) - Closed Specialty Diagnoses / Procedures Referred By Jayant harris Referred To Contact Radiology Diagnoses Chest pain, unspecified type Procedures NM PET CT Cardiac Sarcoid Maegan Mike [facility] [place] [address] [place] [address] Referral ID Status Reason Start Date Expiration Date V isits Requested Visits Authorized [id number] Closed Specialty Service Requested 04/22/2023 10/20/2024 4 4 Encounter Details Date Type Department Care Team (Latest Contact Info) Description 04/30/2023 11:05 AM EST Hospital Encounter [place] [address] Maegan Mike [facility] [place] [address] Discharge Disposition: Home Social History [...] by mouth nightly. empagliflozin (Jardiance) 10 mg TabletIndications:Gaming Department Head neal heart failure with preserved ejection fraction Take 1 tablet by mouth daily. 90 tablet 1 06/11/2021 rOPINIRole (Requip) 1 mg Tablet Take 2 mg by mouth 2 times daily. 07/16/2020 loratadine (Claritin) 10 mg Tablet Take 10 mg by mouth daily as needed. fluticasone propionate (FLONASE) 50 mcg/actuation [place], Suspension 1 spray by Each Nare route [...] PM EST Office Visit Cardiology at [address] [place] [address] Jaspreet Kinsey MD [facility] [place] [address] documented as of this encounter Procedures Procedure [...] mCi documented in this encounter Care Teams Electric Repair Supervisor Relationship Specialty Start Date End Date Polo Pearce PA [address] [place] [address] PCP - General Internal Medicine 06/09/21 documented as of this encounter
--- OUTSIDE RECORDS SUMMARY | 2024-01-24 21:11 | XMS_ITS | Encounter Summary ---
Author Organization [facility] [place] [address] Care Team Providers Care Paint Roller Winder Name Role Phone Polo Pearce Primary Care Provider [phone] Reason for Referral * Consultation (Routine) - Closed Specialty Diagnoses / Procedures Referred By Contac t Referred To Contact Cardiology Diagnoses Heart failure with preserved ejection fraction, unspecified HF chronicity [place]. thorough evaluation performed to date. Jaspreet Kinsye MD [facility] [place] [address] Porsha Mcdaniels MD [facility] [place] [address] Referral ID Status Reason Start Date Expiration Date V isits Requested Visits Authorized [id number] Closed Consult, Test & Treat 06/09/2023 06/08/2024 1 1 Encounter Details Date Type Department Care Team (Late st Contact Info) Description 06/09/2023 Telephone Cardiology at [address] [phone] Jaspreet Kinsey MD [facility] [place] [address] Social History Tobacco Use Types [...] pharmacy. Roland placed referral to cardiology at [facility] for further evaluation of what is termed [...] PM EST Office Visit Cardiology at [address] [place] [address] Jaspreet Kinsey MD [facility] [place] [address] Scheduled Referrals Name Type Priority Associated Diagnoses Orde r Schedule Referral to Cardiology Outpatient Referral Routine Heart failure with preserved ejection fraction, unspecified HF chronicity Ordered: 06/09/2023 documented as of this encounter Visit Diagnoses Diagnosis Heart failure with preserved ejection fraction, unspecified HF chronicity documented in this encounter Care Teams Paint Roller Winder Relationship Specialty Start Date End Date Polo Pearce PA [address] [facility] [address] [place] [address] PCP - General Internal Medicine 06/09/21 documented as of this encounter
--- OUTSIDE RECORDS SUMMARY | 2024-01-24 21:11 | XMS_ITS | Encounter Summary ---
Author Organization [facility] Address [facility] [place] [address] Care Team Providers Care Environmental Services Tech Name Role Phone Polo Pearce Primary Care Provider [phone] Reason for Visit * Reason Comments Cardiomyopathy Encounter Details Date Type Department Care Team (Late st Contact Info) Description 05/10/2023 2:40 PM EST Office Visit Cardiology at [address] [address] Jaspreet Kinsey MD [facility] [place] [address] Heart failure with preserved ejection fraction, unspecified [...] Oral, DAILY fluticasone propionate (FLONASE) 50 mcg/actuation [place], Suspension 1 spray, Each Nare, PRN gabapentin [...] fraction 05/2021: subacute, presented to [facility] [...] referral to the good Dr Mcdaniels of [facility] expertise IN the meantime, increase torsemide [...] referral to the good Dr Mcdaniels of [facility] expertise IN the meantime, increase torsemide to 40 BID. - KATHRINE - ASO - Lyme Ab's - SPEP, FLC - iron, tibc, ferritin documented in this encounter Plan of Treatment Upcoming Encounters Date Type Department Care Team (Late st Contact Info) Description 02/10/2024 1:00 PM EST Office Visit Cardiology at [address] [place] [address] Jaspreet Kinsey MD [facility] [place] [address] documented as of this encounter Results * Streptococcal Antibody Panel (08/25/2023 11:28 AM EDT) [facility] Aso Titer (JULY) 25 0 - 530 IU/mL [facility] Comment: Test Performed by: [facility] [place] [address] Philosophy Faculty Member: Nellie Haney Ph.D.; CLIA# [id number] Dnase B Ab (JULY) 146 0 - 300 unit/mL [facility] Comment: Test Performed by: [facility] [address] Philosophy Faculty Member: Nellie Haney Ph.D.; CLIA# [id number] Blood 08/25/2023 11:2 8 AM EDT 08/25/2023 1:02 PM EDT Narrative Resulting Agency Comment Spec In Lab Jaspreet Kinsey MD LAB SEND OUT ORDERAB LES [facility] [place] [place] [address] * Lyme IgG & IgM Antibody (08/25/2023 11:28 AM EDT) [facility] Lyme Antibody Negative Negative [facility] Lyme Ab Comment Negative result does not exclude possibility of infection. [facility] Comment: Please note that as of 07/14/2022 that this testing is performed by the Special Chemistry Laboratory at [facility]. This change in testing location is associated with a change in testing methodology. Blood 08/25/2023 11:2 8 AM EDT 08/26/2023 7:26 AM EDT Narrative Resulting Agency Comment Spec In Lab Jaspreet Kinsey MD IMMUNOLOGY ORDERABLE S [facility] [place] [place] [address] * Ferritin (08/25/2023 11:28 AM EDT) [facility] Ferritin 110 11 - 328 ng/mL [facility] Comment: Please note that as of 02/10/2023, the reference intervals for Ferritin have been updated. Blood 08/25/2023 11:2 8 AM EDT 08/25/2023 11:37 AM EDT Narrative Resulting Agency Comment Spec In Lab Jaspreet Kinsey MD CHEMISTRY ORDERABLES Performing Organization Address [facility]/ZIP Co de Phone Number [facility] [place] [address] * Iron and TIBC (08/25/2023 11:28 AM EDT) [facility] Iron 113 30 - 150 mcg/dL WHITE [...] Kinsey MD CHEMISTRY ORDERABLES Performing Organization Address City/[facility]/ZIP Co de Phone Number [facility] [place] [place] [address] * (ABNORMAL) Free Light Chains, Serum (08/25/2023 11:28 AM EDT) [place] Free Light Chain 3.09(H) 0.72 - 2.75 mg/dL [facility] Lambda Free Light Chain 1.65 0.57 - 2.15 mg/dL [facility] [place]/Lambda FLC Ratio 1.8727 0.4000 - 2.5800 [facility] Blood 08/25/2023 11:2 8 AM EDT 08/25/2023 11:36 AM EDT Narrative Resulting Agency Comment Spec In Lab Jaspreet Kinsey MD CHEMISTRY ORDERABLES Performing Organization Address City/[facility]/ZIP Co de Phone Number [facility] [place] [address] * (ABNORMAL) Protein Electrophoresis, serum (08/25/2023 11:28 AM EDT) Pathologist [facility] Total Prot Electrophoresis 7.5 6.1 - 8.0 g/dL [facility] Albumin Electrophoresis 4.62 3.20 - 5.20 g/dL [facility] Alpha 1 Globulin 0.20 0.10 - 0.30 g/dL [facility] Alpha 2 Globulin 0.92(H) 0.40 - 0.90 g/dL [facility] Beta Globulin 0.89 0.50 - 1.00 g/dL [place] [...] [facility] [place] [address] * KATHRINE Antibody Screen (08/25/2023 11:28 AM EDT) KATHRINE Ab Screen Negative Negative [facility] Comment: This antinuclear antibody (KATHRINE) screen is a qualitative test performed using a fluoroenzyme immunoassay on the TYFFONdia 250 analyzer. This screen is designed to [...] generated using a fluoroenzyme immunoassay on the TYFFONdia 250 analyzer. This quantitative test is designed to detect IgG antibodies directed against double stranded DNA in human serum. The presence of antibodies that recognize dsDNA is a highly specific marker for systemic lupus erythematosus. Please note that as of 12/30/2021 that this testing is performed by the Special Chemistry Laboratory at [facility]. This change in testing location is associated with a change is testing method and reference intervals. Please review the results of this test in association with the posted reference intervals. Blood 08/25/2023 11:2 8 AM EDT 08/26/2023 7:26 AM EDT Narrative Resulting Agency Comment Spec In Lab Jaspreet Kinsey MD LAB SEND OUT ORDERAB LES [facility] [place] [address] documented in this encounter Visit Diagnoses Diagnosis Heart failure with preserved ejection fraction, unspecified HF chronicity- Primary SVT (supraventricular tachycardia) Other specified cardiac dysrhythmias documented in this encounter Care Teams Environmental Services Tech Relationship Specialty Start Date End Date Polo Pearce PA [address] [place] [address] PCP - General Internal Medicine 06/09/21 documented as of this encounter
--- OUTSIDE RECORDS SUMMARY | 2024-01-24 21:11 | XMS_ITS | Encounter Summary ---
Author Organization [facility] [place] [address] Care Team Providers Care Home Appliance Tech Name Role Phone Polo Pearce Primary Care Provider [phone] Encounter Details Date Type Department Care Team (Late st Contact Info) Description 05/28/2023 Telephone Cardiology at [address] [address] Jaspreet Kinsey MD [facility] [place] [address] Social History Tobacco Use Types Packs/Day Years Used Date Smoking Tobacco: Never Smokeless Tobacco: Never Alcohol Use Standard Drinks/Week Comments Never 0 (1 standard drink = 0.6 oz pur e alcohol) [facility] Utilities Answer Date Recorded In the past 12 months has e [employer], gas, oil, or water [address] threatened to shut off services in your [...] has gone up. Please call her @ [phone] * Telephone Encounter - Nilda Mayes RN - 06/04/2023 9:41 AM EDT Next office visit is scheduled Date Visit Type Department Provider 09/22/2023 3:00 PM FOLLOW UP VISIT Cardiology at [facility] at: [facility] [address] Kinsey * Telephone Encounter - Aide Glass - 05/28/2023 10:53 AM EDT Patient had labs done recently. She would like to know what Dr Kinsey thinks about them and what if anything she should be doing. Please call her @ [phone] . documented in this encounter Plan of Treatment Upcoming Encounters Date Type Department Care Team (Late st Contact Info) Description 02/10/2024 1:00 PM EST Office Visit Cardiology at [address] [place] [address] Jaspreet Kinsey MD [facility] [place] [place] [address] documented as of this encounter Visit Diagnoses Not on filedocumented in this encounter Care Teams Home Appliance Tech Relationship Specialty Start Date End Date Polo Pearce PA [address] [place] [address] PCP - General Internal Medicine 06/09/21 documented as of this encounter
--- OUTSIDE RECORDS SUMMARY | 2024-01-24 21:11 | XMS_ITS | Encounter Summary ---
[place] [address] Care Team Providers Care Water Plant Pump Operator Name Role Phone Polo Pearce Primary Care Provider [phone] Reason for Visit * Auth/Cert (Routine) Specialty Diagnoses / Procedures Referred By Contjulita t Referred To Contact Diagnoses NSTEMI (non-ST elevated myocardial infarction) NSTEMI Procedures ER Lloyd Pantoaj MD [facility] [place] [address] [facility] Referral ID Status Reason Start Date Expiration Date Visits Re quested Visits Authorized [id number] 1 1 Encounter Details Date Type Department Care Team (Latest Contact Info) Description 07/02/2023 10:10 AM EDT - 07/02/2023 11:59 PM EDT Hospital [place] [address] Discharge Disposition: Home Social History Tobacco Use Types Packs/Day Years Used Date Smoking Tobacco: Never Smokeless Tobacco: Never Alcohol Use Standard Drinks/Week Comments Never 0 (1 standard drink = 0.6 oz pur e alcohol) [facility] Utilities Answer Date Recorded In the past 12 months has [employer], gas, oil, or water company threatened [...] as needed. fluticasone propionate (FLONASE) 50 mcg/actuation [place], Suspension 1 spray by Each Nare route [...] ordered. Henrietta Judge MD Vascular Surgery Pager: [phone] 07/02/23 ASA: 3 Mal: 3 Cr: Lab Results Component Value Date CREATININE 1.21 (H) 07/02/2023 * Deborah Ely RN - 07/02/2023 10:56 AM EDT [facility] Name: Indira Roque Date of : 1970 AGE: 53 y.o. [facility] [address] (home) [phone] (work) Mobile: Telephone Information: Referring Provider: Pat [...] groin Right Groin Closure device used: Pro [place] Time sheath removed: 13:12 Time of hemostasis: [...] of : 1970 AGE: 53 y.o. Address: [facility] [address] (home) [phone] (work) Mobile: Telephone Information: Referring Provider: Pat [...] PM EST Office Visit Cardiology at [address] [id number] Jaspreet Kinsey MD [facility] [place] [address] documented as of this encounter Procedures Procedure [...] mg documented in this encounter Care Teams Water Plant Pump Operator Relationship Specialty Start Date End Date Polo Pearce PA [address] [place] [address] PCP - General Internal Medicine 06/09/21 documented as of this encounter
--- OUTSIDE RECORDS SUMMARY | 2024-01-24 21:11 | XMS_ITS | Encounter Summary ---
[place] [address] Care Team Providers Care Tool Or Die Drawing Checker Name Role Phone Polo Pearce Primary Care Provider [phone] Reason for Referral * Diagnostic Test (Routine) - Closed Specialty Diagnoses / Procedures Referred By Jayant harris Referred To Contact Radiology Diagnoses Chest pain, unspecified type Procedures NM PET CT Cardiac Sarcoid Maegan Mike APRN [facility] [place] [address] [place] [address] Referral ID Status Reason Start Date Expiration Date V isits Requested Visits Authorized [id number] Closed Specialty Service Requested 04/22/2023 10/20/2024 4 4 Reason for Visit * Auth/Cert (Routine) Specialty Diagnoses / Procedures Referred By Jayant t Referred To Contact Diagnoses NSTEMI (non-ST elevated myocardial infarction) NSTEMI Procedures ER Terrence Pantoja MD [facility] [place] [address] [facility] Referral ID Status Reason Start Date Expiration Date Visits Re quested Visits Authorized [id number] 1 1 Encounter Details Date Type Department Care Team (Latest Contact Info) Description 04/16/2023 11:15 PM EST - 04/22/2023 5:15 PM EST Hospital Encounter Heart and Vascular Unit Level 4 Wing B at [facility] [place] [address] Jose Gallegos MD [facility] [place] [address] Ailyn Knight [place] [facility] [place] [address] Terrence Maloney MD [facility] [place] [address] Eufemia Copeland MD [facility] [place] [address] Chest pain, unspecified type; Non-ST elevation myocardial infarction (NSTEMI); Swelling of hand, unspecified laterality; Arm edema Discharge Disposition: Home Social History Tobacco Use Types Packs/Day Years Used Date Smoking Tobacco: Never Smokeless Tobacco: Never Alcohol Use Standard Drinks/Week Comments Never 0 (1 standard drink = 0.6 oz pur e alcohol) [facility] Utilities Answer Date Recorded In the past 12 months has e ID [employer], gas, oil, or water [facility] threatened to shut off services in your [...] slept in a retirement (including now)? No 04/19/2023 DH IPV Inpatient [...] Loida Madrigal Patient Age: 53 y.o. Language: Somali Admit date: 04/16/2023 Discharge date and time: [...] lung disease secondary to obesity transferred from [facility] for further evaluation of exertional chest pressure and breathlessness. Abnormal OSH troponin 500 and repeat HS Trop [place] [facility] peak 27 with flat [...] discharge Inpatient Provider Contact Information: Cardiovascular Medicine [phone] Discharge Diagnoses (Hospital Problems) and Secondary Diagnoses [...] motion has increased. CTA PE protocol at [facility]- no PE but showed small pericardial effusion and some GG opacities. History of Presentation: Loida Madrigal is a 53 y.o. with hx of paroxysmal A-fib (diagnosed on 10/20/2022), pulmonary emboli on Eliquis, HFpEF (EF of 59%), supraventricular tachycardia (AVNRT since 06/2021) s/p EPS and SVTablation on 04/01/[address] Tovar on [facility], restrictive lung disease secondary to obesity presents from [facility] with complains of chest discomfort that started overnight. The patient has been experiencing ongoing chest pain, prompting admission on 02/11/23 primarily due to concerns about a NSTEMI indicated by elevated troponin levels and EKG changes noted at OSH. However, the observed EKG changes remained largely consistent with previous recordings. Troponin levels at [facility] showed a plateau at [...] again 10/15, improving with sublingua Nitro. At [facility] Vitals: HR 48, BP 115/42, O2 [...] #Acute on chronic HFpEF Patient presented to [facility] on 04/16 with chest pain responsive to SL NTG. Troponin ~500x2. [facility] [facility] [place]. Troponin at [facility], 24>23 w/ repeat peak 27->26. [...] PA 38/15 (24) PCWP 11, CO/CI 3.14/1.6. [facility] 08/30/2019-normal coronary arteries. Cardiac MRI [...] days. Refills: 0 fluticasone propionate 50 mcg/actuation [place], Suspension Commonly known as: Flonase 1 spray [...] 9:40 AM Jaspreet Kinsey MD Cardiology at [facility] Arrive at: [facility] [address] [phone] 09/21/2023 3:00 PM Jaspreet Kinsey MD Cardiology at [facility] at: [facility] [address] [phone] Discharge References/Attachments None Greater than 30 minutes was spent on this discharge including documentation, xmlr-it-ozua time withthe patient, patient education, border measurer [...] away. Stay on the phone. The emergency sand and gravel plant operator will tell you what to do. [...] of 8AM-5PM please call the Cardiology Clinic [phone] to speak with a nurse. All other hours please call the Hospital [facility] Custodian [phone] and ask to speak to the lung gun operator on-call. Return to work: One week Follow up Appointments: Doctor Where Phone # Date Time PCP JOCY Franco [address] [place] [address] 04/28/2023 7:30 AM [address] [employer] [address] Kinsey [facility] [address] 05/10/2023 9:40 AM * Attachments The following attachments cannot be sent through Care Everywhere. * Coronary Angiogram: Post-op (Somali) documented in this encounter Medications at Time [...] by mouth nightly. empagliflozin (Jardiance) 10 mg TabletIndications:Production Foreman neal heart failure with preserved ejection fraction Take 1 tablet by mouth daily. 90 tablet 1 06/11/2021 rOPINIRole (Requip) 1 mg Tablet Take 2 mg by mouth 2 times daily. 07/16/2020 loratadine (Claritin) 10 mg Tablet Take 10 mg by mouth daily as needed. fluticasone propionate (FLONASE) 50 mcg/actuation [place], Suspension 1 spray by Each Nare route [...] reviewed with pt, pt wheeled to d/c [facility]. I agree with the information in this [...] note were not included. CARDIOLOGY APP1 - [facility] DAILY PROGRESS NOTE Page [phone] to reach a provider 28/09 Admit Date: [...] 12 CRP <=4.9 mg/L <3.0 <3.0 OSH [facility] troponin ~500. Telemetry: I have personally [...] disease secondary to obesity who presented to [facility] on 04/16 with chest pain responsive to SL NTG. Troponin ~500x2. Transfer[place] [facility] [place] further [place]. Troponin at [facility], 24>23. Reports exertional chest pressure [...] Score: 24 PT: OT: PCP JOCY Franco [phone] Discussed with MD Kurt Ray PA-C APP1 pager [phone] 04/22/2023 CV HOSPITALIST ADDENDUM Date of Service: [...] 04/21/2023 6:10 PM EST CARDIOLOGY APP1 - [facility] DAILY PROGRESS NOTE Page [phone] to reach a provider 28/09 Admit Date: [...] 12 CRP <=4.9 mg/L <3.0 <3.0 OSH [facility] troponin ~500. Telemetry: I have personally [...] disease secondary to obesity who presented to [facility] on 04/16 with chest pain responsive to SL NTG. Troponin ~500x2. Transferred [place] [facility] [place] further [place]. Troponin at [facility], 24>23. Reports exertional chest pressure [...] and no pericardial effusion. She underw ent [facility] on 04/18 which showed non-obstructive [...] Daily Healthy Menu Choices/Cardiac diet ([facility]) 2 GM NA DVT Prophylaxis: DOAC Code status: Attempt Cardiopulmonary Resuscitation - Inpatient Disposition: Discharge Location: AM-[facility] Basic Mobility Raw Score: 22 PT: OT: PCP JOCY Franco [phone] * Eufemia Copeland MD - 04/20/2023 4:34 PM EST CARDIOLOGY APP1 - [facility] DAILY PROGRESS NOTE Page [phone] to reach a provider 28/09 Admit Date: [...] 12 CRP <=4.9 mg/L <3.0 <3.0 OSH [facility] troponin ~500. Telemetry: I have personally [...] disease secondary to obesity who presented to [facility] on 04/16 with chest pain responsive to SL NTG. Troponin ~500x2. Transferred to [facility] [place] further evaluation. Troponin at [facility], 24>23. Reports exertional chest pressure [...] and no pericardial effusion. She underw ent [facility] on 04/18 which showed non-obstructive [...] Daily Healthy Menu Choices/Cardiac diet ([facility]) 2 GM NA; 2000 mL FLUID DVT Prophylaxis: DOAC Code status: Attempt Cardiopulmonary Resuscitation - Inpatient Disposition: Discharge Location: AM-[facility] Basic Mobility Raw Score: 24 PT: OT: PCP JOCY Franco [phone] * Carrol La PA - 04/19/2023 12:32 PM EST CARDIOLOGY APP1 - [facility] DAILY PROGRESS NOTE Page [phone] to reach [...] 12 CRP <=4.9 mg/L <3.0 <3.0 OSH [facility] troponin ~500. EKG: Sinus bradycardia, 47 bpm, PAC, possible left atrial enlargement, possible lateral infarct, QTc 511. Telemetry: I have personally reviewed and interpreted the telemetry from the last 24 hours. Resultsshow sinus bradycardia with HR 50s, PVCs, heart rate climbs to 70s with activity.. Imaging: [facility] 04/18/23 Conclusions: * Nonobstructive coronary [...] motion has increased. CTA PE protocol at [facility]- no PE but showed small pericardial [...] acute aortopathy. 4. No acute pulmonary findings. [facility] 06/09/2021-RA 4, PA 38/15 (24) PCWP 11, CO/CI 3.14/1.6. [facility] 08/30/2019-normal coronary arteries. Assessment & [...] disease secondary to obesity who presented to [facility] on 04/16 with chest pain responsive to SL NTG. Troponin ~500x2. Transferred [place] [facility] [place] further evaluation. Troponin at [facility], 24>23. Reports exertional chest pressure [...] Daily Healthy Menu Choices/Cardiac diet ([facility]) 2 GM NA; 2000 mL FLUID DVT Prophylaxis: DOAC Code status: Attempt Cardiopulmonary Resuscitation - Inpatient Disposition: Discharge Location: AM-PAC Basic Mobility Raw Score: 24 PT: OT: PCP JOCY Franco [phone] Discussed with MD Carrol Aly PA-C APP1 Pager: [phone] 04/19/2023 * Nikkie Lew RCP - 04/18/2023 [...] note were not included. CARDIOLOGY APP1 - [facility] DAILY PROGRESS NOTE Page [phone] to reach a provider 28/09 Admit Date: [...] breathlessness. Awaiting cardiac catheterization potentially today if Brick Wheeler availability allows.She remains on ACS therapies. Medications: [...] motion has increased. CTA PE protocol at [facility]- no PE but showed small pericardial [...] lung disease secondary to obesity presents from [facility] with complains of exertional chest pressure [...] ongoing chest pain -C 04/18 depending on Brick Wheeler availability. #Hx of pAfib #Hx of AVNRT [...] Score: 24 PT: OT: PCP JOCY Franco [phone] Discussed with MD Kurt Sheppard PA-C APP1 pager [phone] 04/18/2023 * Kurt Silveira PA - 04/17/2023 7:15 AM EST Images from the original note were not included. CARDIOLOGY APP1 - [facility] DAILY PROGRESS NOTE Page [phone] to reach a provider 28/09 Admit Date: [...] 12 CRP <=4.9 mg/L <3.0 <3.0 OSH [facility] troponin ~500. EKG: Sinus bradycardia, 47 [...] motion has increased. CTA PE protocol at [facility]- no PE but showed small pericardial [...] acute aortopathy. 4. No acute pulmonary findings. [facility] 06/09/2021-RA 4, PA 38/15 (24) PCWP 11, CO/CI 3.14/1.6. [facility] 08/30/2019-normal coronary arteries. Assessment & [...] lung disease secondary to obesity presents from [facility] with complains of exertional chest pressure [...] or NTG drip if ongoing chest pain -[facility] 04/18 or 04/19 depending on Brick Wheeler availability. #Hx of pAfib #Hx of AVNRT sp EPS and Ablation - hold eliquis. Last taken on 04/16/23 am. - Continue IV heparin. # Hx of PE- continue with IV heparin Diet: No diet orders on file DVT Prophylaxis: DOAC Code status: Attempt Cardiopulmonary Resuscitation - Inpatient Disposition: Discharge Location: AM-[facility] Basic Mobility Raw Score: 14 PT: OT: PCP JOCY Franco [phone] Discussed with MD Kurt Sheppard PA-C APP1 pager [phone] 04/17/2023 documented in this encounter H&P Notes [...] on 04/01/[address] Tovar on [facility], restrictive lung disease secondary to obesity presents from [facility] with complains of chest discomfort that started overnight. The patient has been experiencing ongoing chest pain, prompting admission on 02/11/23 primarily due to concerns about a NSTEMI indicated by elevated troponin levels and EKG changes noted at OSH. However, the observed EKG changes remained largely consistent with previous recordings. Troponin levels at [facility] showed a plateau at [...] again 10/15, improving with sublingua Nitro. 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 fluticasone propionate (FLONASE) 50 mcg/actuation [place], Suspension 1 spray by Each Nare route [...] on 04/01/[address] Tovar on [facility], restrictive lung disease secondary to obesity presents from [facility] with complains of chest discomfort that [...] (see comments), grab bar - tub/shower (CPAP [facility]) DME Needed at Discharge: N/A Patient is insured through: Primary Insurance: [employer] [place] Payor[place] [employer] [place] / Plan: [employer] [place] EXCHANGE / Product Type: *No Product type* / Secondary Insurance: N/A Prescription Coverage: Yes This plan was formulated with input from patient and team. All are in agreement with plan. * Consult Note - Maegan Mike, ROM - 04/22/2023 10:38 AM EST Images from the original note were not included. [facility] [place] [address] [address] INPATIENT CARDIOLOGY CONSULT PROGRESS NOTE Interval events: [...] insights. Discussed with MD Maegan De Leon, ENTRY LEVEL ACCOUNTANT Pager [phone] 04/22/2023 Associated attestation - Jaspreet Kinsey MD [...] Tatum MSW - 04/20/2023 2:22 PM EST LEAD ATHLETE received a consult to support patient with financial concerns. LEAD ATHLETE met with patient and introduced self. Patient stated due to hospitalization, she has been out of work and feeling stress around not being able to pay bills. I have a car payment and other bills and it's like I have to choose which one to pay and which one not to pay. LEAD ATHLETE validated patient's stress around financial concerns. LEAD ATHLETE asked patient if she has applied for [place] or any other state benefits. Patient stated that she has, but is over the household income criteria to qualify for benefits. Patient shared that she owns her home outright and mainly concerned about making her car payment and transportation home. MSWstated that care management will help arrange for a ride, if needed. LEAD ATHLETE provided patient with community resources such as the [facility] Food Directory, the [facility] Community Action phone number, and the [facility] [employer] contact info. LEAD ATHLETE available to support patient should anything else [...] Admitted From: Transfer from another hospital Location: [facility] Reason for Hospitalization: chest pain and cough Covid Vaccination Status: 1st, 2nd & booster Last COVID test: Lab Results Component Value Date [id number] Not Detected 06/13/2021 Past medical History: Past [...] In the past 12 months has the ID [employer], gas, oil, or water [facility] threatened to shut off services in your home?: Yes ([employer] is currently threatening to shut off electricity [...] (CPAP [facility]) Home Address confirmed as: [address] [address] Social & Family Supports: All names listed below confirmed with patient as current and correct Extended Emergency Contact Information Primary Emergency Contact: Cathy Madrigalnn Patient Engagement Systems Relation: Spouse Secondary Emergency Contact: ALYSSATALI Relation: [...] Specific Information: N/A Health/Prescription Coverage: Primary Insurance: [employer] [place] Payor: [employer] [facility] [place] / Plan[place] / Product Type: *No Product type* / Secondary Insurance: N/A ; Prescription Coverage: Yes Preferred Pharmacy: [id number] - [place], [place] - [address] [facility] [address] [facility] - [place], [place] - [address] [facility] [address] [facility] [address] [facility] [address] Status: Patient is a : No Primary Care Provider confirmed: JOCY Franco [phone] Patient/Caregiver Goals of Treatment: home w / family when MR Potential Needs for Transition of Care: other (see comments) (LEAD ATHLETE support; pt's spouse was denied twice for [...] Concerns to be Addressed: financial/insurance, discharge planning; LEAD ATHLETE consult placed to discuss available resources Assessment: [...] from the original note were not included. [facility] [address] [place] [address] INPATIENT CARDIOLOGY CONSULT NOTE Reason for Consult: [...] ACS with DAPT and heparin prior to [facility] 04/18, which was negative for [...] Went to cathlab, came back ~1115am, s/p [facility] with no coronary artery disease [...] for further details. JOCY Marie 04/17/2023 Pager [phone] * Plan of Care - Sudhakar Smith [...] PM EST Office Visit Cardiology at [address] [place] [address] Jaspreet Kinsey MD [facility] [place] [address] documented as of this encounter Procedures Procedure [...] have questions please contact the health career representative that requested your imaging first. ? 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 Following IV administration of 26.5 mCi technetium 99m sestamibi, SPECT-CT of the heart was obtained. Following IV injection of 8.8 mCi 89-pelntr-6-deoxyglucose (FDG) and a standard uptake of approximately [...] obtained. Following IV injection of 8.8 mCi 25-wtianb-6-deoxyglucose (FDG) and astandard uptake of approximately 60 [...] who have questions please contactthe health career representative that requested your imaging first. Maegan Mike ENTRY LEVEL ACCOUNTANT IMG PET ORDERABLE S * MRI Cardiac [...] have questions please contact the health career representative that requested your imaging first. ? [...] who have questions please contactthe health career representative that requested your imaging first. Electronically signed by: Karon Nur MD, [facility] ([phone]), at 04/21/2023 5:33 PM Terrence Maloney MD IMG MRI ORDERABLES * Hemogram (04/21/2023 3:40 AM EST) White Blood Cell 7.1 4.0 - 9.5 x10(3)/[facility] LABORATORY Red Blood Cell 4.59 4.00 - 5.21 x10(6)/[facility] LABORATORY Hemoglobin 14.4 11.7 - 15.5 g/dL [facility] Hematocrit 43.0 35.7 - 45.8 % [facility] Mean Cell Volume 93.7 82.6 - 94.4 fL [facility] Mean Cell Hemoglobin 31.4 27.1 - 32.0 pg [facility] Mean Cell Hemoglobin Concentration 33.5 31.7 - 35.0 g/dL [facility] Platelet 221 145 - 357 x10(3)/[facility] LABORATORY RDW Standard Deviation 43.5 37.0 - 46.0 fL [facility] RDW coefficient of variation 12.6 11.5 - 14.1 % [facility] Mean Platelet Volume 11.1 7.6 - 12.9 fL [facility] NRBC% auto 0.0 % [facility] NRBC Absolute 0.000 0.000 - 0.000 x10(3)/[facility] LABORATORY Blood 04/21/2023 3:40 AM EST 04/21/2023 3:58 AM EST Narrative Resulting Agency Comment Spec In Lab Ailyn Knight MD HEMATOLOGY ORDERABLE S [facility] [place] [address] * (ABNORMAL) BMP w/fasting Glucose (04/21/2023 3:40 AM EST) Glucose Fasting 107(H) 65 - 99 mg/dL [facility] Comment: ?Fasting* Glucose Interpretive Criteria [...] Urea Nitrogen 20(H) 8 - 18 mg/dL [facility] Creatinine 1.14 0.70 - 1.20 mg/dL [facility] Sodium 138 135 - 145 mmol/L [facility] Potassium 3.8 3.5 - 5.0 mmol/L [facility] Comment: Please note: ??Patients with WBC >100,000 may have falsely elevated Potassium levels. ??For accurate Potassium quantification in these patients send serum separator tube (gold top) for subsequent determinations. ??Contact the Clinical Chemistry Laboratory if there are any questions. Chloride 106 98 - 107 mmol/L [facility] Carbon Dioxide 22 22 - 31 mmol/L [facility] Anion Gap 10 5 - 15 mmol/L [facility] Calcium 9.2 8.5 - 10.5 mg/dL [facility] Est Glomerular Filtration Rate 57(L) >=60 mL/min/1. 73 m?? [facility] Comment: This patient's estimated GFR [...] Knight MD CHEMISTRY ORDERABLES Performing Organization Address [facility] Co de Phone Number [facility] [place] [address] * Magnesium (04/21/2023 3:40 AM EST) Magnesium 0.90 0.69 - 1.07 mmol/L [facility] Blood 04/21/2023 3:40 AM EST 04/21/2023 3:58 AM EST Narrative Resulting Agency Comment Spec In Lab Ailyn Knight MD CHEMISTRY ORDERABLES Performing Organization Address [facility] de Phone Number [facility] [place] [address] * (ABNORMAL) Troponin (04/20/2023 4:44 PM EST) Troponin-T, High Sensitivity 26(H) <=14 ng/L [facility] Comment: This patient's troponin T [...] troponin value can be found in the [facility] Laboratory Test Catalog Troponin - [facility] Laboratory Test Catalog Reference: Fourth Opp Definition of Myocardial Infarction. Journal of the [place] [employer] 2018;72:4363-6516 Blood 04/20/2023 4:44 PM EST 04/20/2023 4:53 PM EST Narrative Resulting Agency Comment Spec In Lab Eufemia Copeland MD CHEMISTRY ORDERABL ES Performing Organization Address [facility]/ZIP [place] [address] * Duplex for DVT, Arm, Unilat (04/20/2023 4:22 PM EST) VB Text Report Department: Vascular Surgery Lab Patient: [id number] (LOIDA MADRIGAL) CPT: 97973 Referring Physician: TERRENCE MALONEY ?? Phone: Indications: [...] database for comparison. Electronically Signed by: CARLOTA CONTERRAS MD on 2023-04-23 07:33:37 AM VASCUBASE VB Text Report End of Report VASCUBASE 04/20/2023 4:22 PM EST Terrence Maloney MD VASCULAR ORDERABLES VASCUBASE * (ABNORMAL) Troponin (04/20/2023 1:47 PM EST) Troponin-T, High Sensitivity 27(H) <=14 ng/L [facility] Comment: This patient's troponin T [...] troponin value can be found in the [facility] Laboratory Test Catalog Troponin - [facility] Laboratory Test Catalog Reference: Fourth Opp Definition of Myocardial Infarction. Journal of the [place] [employer] 2018;72:2437-6360 Blood 04/20/2023 1:47 PM EST 04/20/2023 2:18 PM EST Narrative Resulting Agency Comment Spec In Lab Eufemia Copeland MD CHEMISTRY ORDERABL ES [facility] [place] [address] * (ABNORMAL) Troponin (04/20/2023 10:48 AM EST) Troponin-T, High Sensitivity 24(H) <=14 ng/L [facility] Comment: This patient's troponin T [...] troponin value can be found in the [facility] Laboratory Test Catalog Troponin - [facility] Laboratory Test Catalog Reference: Fourth Opp Definition of Myocardial Infarction. Journal of the [place] [employer] 2018;72:0046-0878 Blood 04/20/2023 10:4 8 AM EST 04/20/2023 11:03 AM EST Narrative Resulting Agency Comment Spec In Lab Eufemia Copeland MD CHEMISTRY ORDERABL ES [facility] [place] [address] * EKG 12 Lead (04/20/2023 10:23 AM EST) Ventricular rate 60 BPM MUSE SYSTEM Atrial Rate 60 BPM MUSE SYSTEM P-R Interval 170 ms MUSE SYSTEM QRS Duration 86 ms MUSE SYSTEM Q-T Interval 470 ms MUSE SYSTEM QTC Calculated (Bezet) 470 ms MUSE SYSTEM Calculated P [place] 39 degrees MUSE SYSTEM Calculated R [place] 63 degrees MUSE SYSTEM Calculated T [place] -16 degrees MUSE SYSTEM INTERPRETATION Normal sinus [...] leads Confirmed by MD Benitez Gregory A. ([id number]) on 04/22/2023 12:10:07 PM MUSE SYSTEM 04/20/2023 10:2 3 AM EST 04/22/2023 12:10 PM EST Terrence Maloney MD ECG ORDERABLES MUSE SYSTEM * Hemogram (04/20/2023 3:11 AM EST) White Blood Cell 6.6 4.0 - 9.5 x10(3)/[facility] Red Blood Cell 4.59 4.00 - 5.21 x10(6)/[facility] Hemoglobin 14.2 11.7 - 15.5 g/dL [facility] Hematocrit 42.7 35.7 - 45.8 % [facility] Mean Cell Volume 93.0 82.6 - 94.4 fL [facility] Mean Cell Hemoglobin 30.9 27.1 - 32.0 pg [facility] Mean Cell Hemoglobin Concentration 33.3 31.7 - 35.0 g/dL [facility] Platelet 231 145 - 357 x10(3)/[facility] RDW Standard Deviation 43.6 37.0 - 46.0 fL [facility] RDW coefficient of variation 12.6 11.5 - 14.1 % [facility] Mean Platelet Volume 11.0 7.6 - 12.9 fL [facility] NRBC% auto 0.0 % [facility] NRBC Absolute 0.000 0.000 - 0.000 x10(3)/[facility] Blood 04/20/2023 3:11 AM EST 04/20/2023 3:24 AM EST Narrative Resulting Agency Comment Spec In Lab Ailyn Knight MD HEMATOLOGY ORDERABLE S [facility] [place] [address] * (ABNORMAL) BMP w/fasting Glucose (04/20/2023 3:11 AM EST) Glucose Fasting 107(H) 65 - 99 mg/dL [facility] Comment: ?Fasting* Glucose Interpretive Criteria [...] Urea Nitrogen 20(H) 8 - 18 mg/dL [facility] Creatinine 1.05 0.70 - 1.20 mg/dL [facility] Sodium 139 135 - 145 mmol/L [facility] Potassium 3.6 3.5 - 5.0 mmol/L [facility] Comment: Please note: ??Patients with WBC >100,000 may have falsely elevated Potassium levels. ??For accurate Potassium quantification in these patients send serum separator tube (gold top) for subsequent determinations. ??Contact the Clinical Chemistry Laboratory if there are any questions. Chloride 106 98 - 107 mmol/L [facility] Carbon Dioxide 21(L) 22 - 31 mmol/L [facility] Anion Gap 12 5 - 15 mmol/L [facility] Calcium 9.3 8.5 - 10.5 mg/dL [facility] Est Glomerular Filtration Rate 63 >=60 mL/min/1. 73 m?? [facility] Comment: This patient's estimated GFR [...] Knight MD CHEMISTRY ORDERABLES Performing Organization Address City/[facility]/ZIP Co de Phone Number [facility] [place] [address] * Magnesium (04/20/2023 3:11 AM EST) Magnesium 0.91 0.69 - 1.07 mmol/L [facility] Blood 04/20/2023 3:11 AM EST 04/20/2023 3:24 AM EST Narrative Resulting Agency Comment Spec In Lab Ailyn Knight MD CHEMISTRY ORDERABLES Performing Organization Address [facility] Co de Phone Number [facility] [place] [address] * Respiratory Panel PCR (04/19/2023 2:05 PM EST) Respiratory Panel Source [employer] [facility] Respiratory Panel PCR Negative Negative [facility] Comment: Respiratory Panels are performed on the [employer] using multiplexed PCR nucleic acid detection. ??Negative results do not preclude respiratory infection and should not be used as the sole basis for diagnosis, treatment or other management decisions. Adenovirus Not Detected Not Detected [facility] Coronavirus HKU1 Not Detected Not Detected [facility] Coronavirus NL63 Not Detected Not Detected [facility] Coronavirus 229E Not Detected Not Detected [facility] Coronavirus OC43 Not Detected Not Detected [facility] SARS-CoV-2 Not Detected Not Detected [facility] Comment: Testing for SARS-CoV-2 (Severe acute respiratory syndrome coronavirus 2) to aid in the diagnosis of COVID-19 is performed using the [employer] Respiratory Panel 2.1 ([employer]) as authorized by the FDA issued Emergency Use Authorization (EUA). This panel also tests for multiple other viral and bacterial pathogens. This assay is intended for In-vitro Diagnostic (IVD) use with nasopharyngeal swabs in viral transport media. The assay is performed based on the instructions for use and additional guidance provided by the FDA. Testing is performed in laboratories within the [facility], each of which is certified under the [...] fact sheets at the following FDA website: https://www.fda.gov/medical-devices/udhzlfxcako-aeankix-7158-ylcbq-06-hyoyjgrph- use-a yhycxgpybbeic-rlujkho-tvsfbkx/egvtd-kdeqkxglexc-unwi Human Metapneumovirus Not Detected Not Detected [facility] Human Rhinovirus/Enterov irus Not Detected Not Detected [facility] Influenza A Not Detected Not Detected [facility] Influenza B Not Detected Not Detected [facility] Parainfluenza 1 Not Detected Not Detected [facility] Parainfluenza 2 Not Detected Not Detected [facility] Parainfluenza 3 Not Detected Not Detected [facility] Parainfluenza 4 Not Detected Not Detected [facility] Respiratory Syncytial Virus Not Detected Not Detected [facility] Chlamydophila pneumoniae Not Detected Not Detected [facility] Mycoplasma pneumoniae Not Detected Not Detected [facility] Nasopharyngeal Swab Other / Unknown 04/19 2:05 PM EST 04/19/2023 3:16 PM EST Narrative Resulting Agency Comment Spec In Lab Carrol SANDRA MICROBIOLOGY - GENER AL ORDERABLES [facility] [place] [address] * (ABNORMAL) Urine culture (04/19/2023 10:25 AM EST) Urine Culture 10,000-49,000 cfu/ml mixed mucosal elmer Note: Culture shows multiple bacterial species suggesting mucosal contamination. (A) [facility] Clean Catch Urine 04/19/2023 10:25 AM EST 04/19/2023 12:49 PM EST Narrative Resulting Agency Comment Spec In Lab Carrol SANDRA MICROBIOLOGY - GENER AL ORDERABLES Performing Organization Address [facility] Co de Phone Number [facility] [place] [address] * (ABNORMAL) Urinalysis Microscopic Exam (04/19/2023 10:25 AM EST) RBC, Urine 1 0 - 4 /HPF [facility] WBC, Urine 10(H) 0 - 5 /HPF [facility] Squamous Epithelial Cells Raw Data, Urine 4 <=4 /HPF [facility] Hyaline Casts, Urine 1 0 - 2 /LPF [facility] Clean Catch Urine 04/19/2023 10:25 AM EST 04/19/2023 11:08 AM EST Narrative Resulting Agency Comment Spec In Lab Carrol SANDRA URINE ORDERABLES Performing Organization Address City/[facility] Co de Phone Number [facility] [place] [address] * (ABNORMAL) Urinalysis with reflex Culture (04/19/2023 10:25 AM EST) Glucose, Urine Dipstick >=1000(Criti edy) Negative mg/dL [facility] Comment: Urinalysis result NOT critical without a combination of Glucose greater than or equal to 500 mg/dL AND Ketones greater than or equal to 80 mg/dL Protein, Urine Dipstick Negative Negative mg/dL [facility] Bilirubin, Urine Dipstick Negative Negative mg/dL [facility] Comment: Clinical correlation required for positive Urine Bilirubin results as false positive may occur with some drugs and drug related products. If a false positive is suspected a serum total bilirubin should be considered if clinically indicated. Urobilinogen, Urine Dipstick Normal Normal mg/dL [facility] pH, Urn (dipstick) 5.5 5.0 - 8.0 [facility] Blood, Urine Dipstick Negative Negative mg/dL [facility] Ketone, Urine Dipstick Negative Negative mg/dL [facility] Nitrite, Urine Dipstick Negative Negative [facility] Leukocytes, Urine Dipstick Small(A) Negative [facility] Appearance, Urine Dipstick Clear Clear [facility] Specific [place] Urine Automated 1.024 1.005 - 1.030 [facility] Color, Urine Dipstick Yellow Yellow [facility] Reflex to Culture Yes [facility] Clean Catch Urine 04/19/2023 10:25 AM EST 04/19/2023 11:08 AM EST Narrative Resulting Agency Comment Spec In Lab Ailyn Knight MD URINE ORDERABLES [facility] [place] [address] * Arterial Duplex Arm, Unilat (04/19/2023 9:40 AM EST) VB Text Report Department: Vascular Surgery Lab Patient: [id number] (LOIDA MADRIGAL) CPT: 30255 Referring Physician: AILYN KNGIHT ?? Phone: Indications: Arm tenderness post cardiac [...] Blood Cell 7.5 4.0 - 9.5 x10(3)/mcL [facility] Red Blood Cell 4.86 4.00 - 5.21 x10(6)/[facility] Hemoglobin 14.8 11.7 - 15.5 g/dL [facility] Hematocrit 45.5 35.7 - 45.8 % [facility] Mean Cell Volume 93.6 82.6 - 94.4 fL [facility] Mean Cell Hemoglobin 30.5 27.1 - 32.0 pg [facility] Mean Cell Hemoglobin Concentration 32.5 31.7 - 35.0 g/dL [facility] Platelet 240 145 - 357 x10(3)/[facility] RDW Standard Deviation 43.8 37.0 - 46.0 fL [facility] RDW coefficient of variation 12.7 11.5 - 14.1 % [facility] Mean Platelet Volume 11.0 7.6 - 12.9 fL [facility] NRBC% auto 0.0 % [facility] NRBC Absolute 0.000 0.000 - 0.000 x10(3)/[facility] Blood 04/19/2023 2:40 AM EST 04/19/2023 2:57 AM EST Narrative Resulting Agency Comment Spec In Lab Ailyn Knight MD HEMATOLOGY ORDERABLE S Performing Organization Address City/State/[facility] Co de Phone Number [facility] [place] [address] * (ABNORMAL) BMP w/fasting Glucose (04/19/2023 2:40 AM EST) Glucose Fasting 106(H) 65 - 99 mg/dL [facility] Comment: ?Fasting* Glucose Interpretive Criteria [...] Urea Nitrogen 22(H) 8 - 18 mg/dL [facility] Creatinine 1.11 0.70 - 1.20 mg/dL [facility] Sodium 139 135 - 145 mmol/L [facility] Potassium 4.0 3.5 - 5.0 mmol/L [facility] Comment: Please note: ??Patients with WBC >100,000 may have falsely elevated Potassium levels. ??For accurate Potassium quantification in these patients send serum separator tube (gold top) for subsequent determinations. ??Contact the Clinical Chemistry Laboratory if there are any questions. Chloride 105 98 - 107 mmol/L [facility] Carbon Dioxide 20(L) 22 - 31 mmol/L [facility] Anion Gap 14 5 - 15 mmol/L [facility] Calcium 9.5 8.5 - 10.5 mg/dL [facility] Est Glomerular Filtration Rate 59(L) >=60 mL/min/1. 73 m?? [facility] Comment: This patient's estimated GFR [...] In Lab Ailyn Knight MD CHEMISTRY ORDERABLES [facility] [place] [address] * Magnesium (04/19/2023 2:40 AM EST) Magnesium 0.97 0.69 - 1.07 mmol/L [facility] Blood 04/19/2023 2:40 AM EST 04/19/2023 2:57 AM EST Narrative Resulting Agency Comment Spec In Lab Ailyn Knight MD CHEMISTRY ORDERABLES Performing Organization Address [facility]/State/ZIP Co de Phone Number [facility] [place] [address] * CARDIAC CATHETERIZATION (04/18/2023 11:05 AM EST) Anatomical Region Laterality Modality Other Narrative 04/19/2023 6:57 AM EST ?[facility] ? Cardiac Catheterization/Intervention Report ? Patient Name: Neisha, Loida ? Procedure Date: 04/18/2023 ? A #: [id number] ? Primary Physician: Danilo, Dustin Alicea ? Case #: [id number] ? File Name: [id number] ? Catheterization Order Number: [id number] ? [facility] ? Final Report [place], [place] ? Patient Name: ? Loida Neisha ? ID#: ?[id number] ? : ?1970 ? Procedure Date: ? [...] procedure was Urgent. The indication for ?the record label internship visit is ACS greater than 24 hrs. [...] present for the entire procedure. ?Dr. Dustin Cararsco M.D. was present during the moderate sedation ?intraservice time as documented by the sedation nurse. ??Case time = 00:28. ?Dr. Dustin Carrasco M.D. performed the coronary angiography and left heart ?catheterization. ? Dustin Carrasco M.D. ? Electronically Signed by: Dustin Carrasco M.D. ? Report Finalized: 04/18/2023 ??12:13 ? Report Last Ammended: 05/03/2023 ??07:49 ? Procedure Note Dustin Carrasco MD - 05/03/2023 [facility] Cardiac Catheterization/Intervention Report Patient Name: Loida Madrigal Procedure Date: 04/18/2023 A #: [id number] Primary Physician: Dustin Carrasco Case #: [id number] File Name: [id number] Catheterization Order Number: [id number] [facility] FinalReport [place], [place] Patient Name: Loida Madrigal ID#:[id number] :1970 Procedure Date: April 18, 2023 Case [...] diagnostic procedure was Urgent. The indicationfor the record label internship visit is ACS greater than 24 hrs. [...] units of heparin were administered. A total [id number] of Omnipaque were opened, 65cc of Omnipaque were administered [id number] of Omnipaque were wasted. Radiation: Fluoro time [...] 8:23 AM EST) UF Heparin 0.39 IU/mL [facility] Comment: Heparin (anti-Xa) levels [...] HEMATOLOGY ORDERABLE S Performing Organization Address City/State/[facility] Co de Phone Number [facility] [place] [address] * Differential, Automated (04/18/2023 2:10 AM EST) Neutrophil % 51.4 % [facility] Neutrophil Absolute 3.43 1.70 - 6.10 x10(3)/[facility] Lymph % 33.8 % [facility] Lymphocytes Abs 2.2 0.9 - 3.2 x10(3)/[facility] Monocyte % 9.9 % [facility] Monocyte Abs 0.7 0.3 - 0.9 x10(3)/[facility] Eos % 3.9 % [facility] Eosinophils Abs 0.3 0.0 - 0.4 x10(3)/[facility] Basophil % 0.8 % [facility] Baso Absolute 0.0 0.0 - 0.1 x10(3)/[facility] Immature Gran % 0.20 % [facility] Comment: Immature granulocytes(IG's)percentage and absolute count will include metamyelocytes, myelocytes, and promyelocytes. Blood smears from CBCs yielding IG's will be scanned manually for concordance. If this scan disagrees with the automated IG or if promyelocytes are noted, a manual differential will be performed. Immature Gran Absolute 0.01 0.00 - 0.04 x10(3)/[facility] Blood 04/18/2023 2:10 AM EST 04/18/2023 2:44 AM EST Narrative Resulting Agency Comment Spec In Lab Terrence Maolney MD HEMATOLOGY ORDERABLE S Performing Organization Address City/[facility] Co de Phone Number [facility] [place] [address] * Hemogram (04/18/2023 2:10 AM EST) White Blood Cell 6.7 4.0 - 9.5 x10(3)/[facility] Red Blood Cell 4.93 4.00 - 5.21 x10(6)/[facility] Hemoglobin 15.2 11.7 - 15.5 g/dL [facility] Hematocrit 44.9 35.7 - 45.8 % [facility] Mean Cell Volume 91.1 82.6 - 94.4 fL [facility] Mean Cell Hemoglobin 30.8 27.1 - 32.0 pg [facility] Mean Cell Hemoglobin Concentration 33.9 31.7 - 35.0 g/dL [facility] Platelet 233 145 - 357 x10(3)/[facility] RDW Standard Deviation 42.0 37.0 - 46.0 fL [facility] RDW coefficient of variation 12.8 11.5 - 14.1 % [facility] Mean Platelet Volume 11.3 7.6 - 12.9 fL [facility] NRBC% auto 0.0 % [facility] NRBC Absolute 0.000 0.000 - 0.000 x10(3)/[facility] Blood 04/18/2023 2:10 AM EST 04/18/2023 2:44 AM EST Narrative Resulting Agency Comment Spec In Lab Terrence Maloney MD HEMATOLOGY ORDERABLE S Performing Organization Address City/[facility]/ZIP Co de Phone Number [facility] [place] [address] * Heparin (unfractionated) Level (04/18/2023 2:10 AM EST) UF Heparin 0.50 IU/mL [facility] Comment: Heparin (anti-Xa) [...] HEMATOLOGY ORDERABLE S Performing Organization Address City/State/[facility] Co de Phone Number [facility] [place] [address] * (ABNORMAL) BMP w/fasting Glucose (04/18/2023 2:10 AM EST) Glucose Fasting 98 65 - 99 mg/dL [facility] Comment: ?Fasting* Glucose Interpretive Criteria [...] Urea Nitrogen 23(H) 8 - 18 mg/dL [facility] Creatinine 1.18 0.70 - 1.20 mg/dL [facility] Sodium 143 135 - 145 mmol/L [facility] Potassium 3.6 3.5 - 5.0 mmol/L [facility] Comment: Please note: ??Patients with WBC >100,000 may have falsely elevated Potassium levels. ??For accurate Potassium quantification in these patients send serum separator tube (gold top) for subsequent determinations. ??Contact the Clinical Chemistry Laboratory if there are any questions. Chloride 107 98 - 107 mmol/L [facility] Carbon Dioxide 24 22 - 31 mmol/L [facility] Anion Gap 12 5 - 15 mmol/L [facility] Calcium 9.2 8.5 - 10.5 mg/dL [facility] Est Glomerular Filtration Rate 55(L) >=60 mL/min/1. 73 m?? [facility] Comment: This patient's estimated [...] In Lab Ailyn Knight MD CHEMISTRY ORDERABLES [facility] [place] [address] * Magnesium (04/18/2023 2:10 AM EST) Magnesium 1.02 0.69 - 1.07 mmol/L [facility] Blood 04/18/2023 2:10 AM EST 04/18/2023 2:44 AM EST Narrative Resulting Agency Comment Spec In Lab Ailyn Knight MD CHEMISTRY ORDERABLES [facility] [place] [address] * LDL Cholesterol, Direct (04/18/2023 2:10 AM EST) LDL Cholesterol, Direct 105 mg/dL [facility] Comment: Lowest Risk: <100 mg/dL Lower Risk: 100-129 mg/dL Borderline High Risk: 130-159 mg/dL High Risk: 160-189 mg/dL Very High Risk: >cw=218 mg/dL Blood 04/18/2023 2:10 AM EST 04/18/2023 2:44 AM EST Narrative Resulting Agency Comment Spec In Lab Terrence Maloney MD CHEMISTRY ORDERABLES [facility] [place] [address] * Hemoglobin A1c (04/18/2023 2:10 AM EST) Hemoglobin A1c 5.6 4.3 - 5.6 % [facility] Comment: Reference Range: 4.3 - [...] Mellitus, Diabetes Care 2013; 36: Suppl. 1, B06-71 Estimated Average Glucose 115 mg/dL [facility] Blood 04/18/2023 2:10 AM EST 04/18/2023 2:44 AM EST Narrative Resulting Agency Comment Spec In Lab Terrence Maloney MD CHEMISTRY ORDERABLES [facility] [place] [address] * Lipid Panel (Reflex Direct LDL) (04/18/2023 2:10 AM EST) Cholesterol, Total 173 mg/dL [facility] Comment: Lower Risk: <200 mg/dL Average Risk: 200-239 mg/dL Higher Risk: >fe=222 mg/dL Triglyceride 174 mg/dL [facility] Comment: Average Risk/Lower Risk: <150 mg/dL Borderline High Risk: 150-199 mg/dL High Risk: 200-499 mg/dL Very High Risk: >su=652 mg/dL HDL Cholesterol 44 mg/dL [facility] Comment: Males: ?? Higher Risk: <40 mg/dL Females: ?? Higher Risk: <50 mg/dL LDL Cholesterol 94 mg/dL [facility] Comment: Lowest Risk: <100 mg/dL Lower Risk: 100-129 mg/dL Borderline High Risk: 130-159 mg/dL High Risk: 160-189 mg/dL Very High Risk: >xs=741 mg/dL Cholesterol/HDL Ratio 3.9 ratio [facility] Lipid Interpretation See Note [facility] Comment: Lipid management should be guided by a patient? s ASCVD risk, goals and preferences. ACC/AHA Guidelines recommend high intensity statin if clinical ASCVD or LDL greater than or equal to 190 mg/dL. http://efw-suhl.epicurio/RLR-FQZ-Knvygisno Adults aged 40-75 with LDL 70-189 mg/dL should have their 10 year ASCVD risk estimated with the ACC/AHA ASCVD risk estimator and drafter http://tools.acc.org/LEQJG-Uolw-Nukypaysp/ Statin should be discussed if risk greater [...] In Lab Terrence Maloney MD CHEMISTRY ORDERABLES [facility] [place] [address] * POCT Glucose (04/17/2023 7:44 PM EST) Glucose, POC 128 65 - 199 mg/dL [facility] Comment: Supplemental ranges: <140 mg/dL before meals <180 mg/dL all other times of the day Blood 04/17/2023 7:44 PM EST 04/17/2023 7:44 PM EST Ailyn Knight MD POINT OF CARE TEST O RDERABLES Performing Organization Address [facility] Co de Phone Number [facility] [place] [address] * (ABNORMAL) Heparin (unfractionated) Level (04/17/2023 6:01 PM EST) UF Heparin 1.14(Crit ical) IU/mL [facility] Comment: Critical Result called by [...] Performing Organization Address [facility] Co de Phone Number [facility] [place] [address] * (ABNORMAL) Heparin (unfractionated) Level (04/17/2023 12:45 PM EST) UF Heparin 1.39(Crit ical) IU/mL [facility] Comment: Critical Result called by [...] HEMATOLOGY ORDERABLE S Performing Organization Address City/State/[facility] Co de Phone Number [facility] [address] [place] [phone] * ECHO LMTD W CONTRAST W LMTD SPEC DOPP COLOR DOPP (04/17/2023 11:59 AM EST) Pathologist [facility] EF 58 HEARTLAB SYSTEM Anatomical Region Laterality Modality Cardiac Other 04/17/2023 10:2 4 AM EST Narrative 04/17/2023 12:09 PM EST [address] [place] [address] ? Echocardiogram Report Name: LOIDA MADRIGAL ? Study Date: 04/17/2023 10:24 AMBP: 114/64 mmHg ? Patient Location: : 1970 ? Height: 160 cm ? Account: [id number] Age: 53 yrs ? Weight: 98 kg Gender: Female ?BSA: 2.0 m2 Ordering Physician: TERRENCE MALONEY Referring Physician: TERRENCE MALONEY Performed By: HAIM Becerra Reason For Study: Chest pain; NSTEMI Exam Location: [facility]. Interpretation Summary Left ventricle is normal in size and wall thickness. Normal global systolic function with regional wall motion abnormalities as ascribed on the anterior/anterolateral aspect. Right ventricle is normal in size and systolic function. No significant cardiac valve findings. No pericardial effusion. Compared to prior study dated 02/09/2023, the extent of the anterior abnormal wall motion has increased. Procedure Limited - [id number]. Image enhancement Optison was used for left [...] Note Jaspreet Kinsey MD - 04/17/2023 [address] [place] [address] Echocardiogram Report Name: LOIDA MADRIGAL Study Date: 410:24 AMBP: 114/64 mmHg Patient Location: 4A : 1970 Height: 160 cm Account: [id number] Age: 53 yrs Weight: 98 kg Gender: Female BSA: 2.0 m2 Ordering Physician: TERRENCE MALONEY Referring Physician: TERRENCE MALONEY Performed By: HAIM Becerra Reason For Study: Chest pain; NSTEMI Exam Location: [facility]. Interpretation Summary Left ventricle is normal in size and wall thickness. Normal globalsystolic function with regional wall motion abnormalities as ascribed on the anterior/anterolateral aspect. Right ventricle is normal in size and systolic function. No significant cardiac valve findings. No pericardial effusion. Compared to prior study dated 02/09/2023, the extent of the anteriorabnormal wall motion has increased. Procedure Limited - [id number]. Image enhancement Optison was used for left [...] AM EST) UF Heparin 1.41(Crit ical) IU/mL [facility] Comment: Critical Result called by [...] HEMATOLOGY ORDERABLE S Performing Organization Address City/State/[facility] Co de Phone Number [facility] [place] [address] * (ABNORMAL) Troponin (04/17/2023 6:43 AM EST) Troponin-T, High Sensitivity 23(H) <=14 ng/L [facility] Comment: This patient's troponin T [...] troponin value can be found in the [facility] Laboratory Test Catalog Troponin - [facility] Laboratory Test Catalog Reference: Fourth Opp Definition of Myocardial Infarction. Journal of the [place] College [employer] 2018;72:9257-7073 Blood 04/17/2023 6:43 AM EST 04/17/2023 6:52 AM EST Narrative Resulting Agency Comment Spec In Lab Terrence Maloney MD CHEMISTRY ORDERABLES Performing Organization Address City/[facility]/[place] [address] * EKG 12 Lead (04/17/2023 3:41 AM EST) Pathologist [facility] Ventricular rate 47 BPM MUSE SYSTEM Atrial Rate 47 BPM MUSE SYSTEM P-R Interval 186 ms MUSE SYSTEM QRS Duration 90 ms MUSE SYSTEM Q-T Interval 578 ms MUSE SYSTEM QTC Calculated (Bezet) 511 ms MUSE SYSTEM Calculated P [place] 24 degrees MUSE SYSTEM Calculated R [place] 23 degrees MUSE SYSTEM Calculated T [place] 27 degrees MUSE SYSTEM INTERPRETATION Sinus bradycardia with Premature atrial complexes Possible Left atrial enlargement Possible Lateral infarct , age undetermined Prolonged QT Abnormal ECG When compared with ECG of 01-APR-2023 12:28, Premature atrial complexes are now Present Vent. rate has decreased BY ??33 BPM Nonspecific T wave abnormality, improved in Anterior leads Confirmed by MD Angelo Danette ([id number]) on 04/20/2023 8:28:40 PM MUSE SYSTEM 04/17/2023 3:41 AM EST 04/20/2023 8:28 PM EST Terrence Maloney MD ECG ORDERABLES Performing Organization Address City/[facility]/ZIP Co de Phone Number MUSE SYSTEM * Differential, Automated (04/17/2023 3:33 AM EST) Pathologist [facility] Neutrophil % 54.4 % [facility] Neutrophil Absolute 4.02 1.70 - 6.10 x10(3)/[facility] Lymph % 32.0 % [facility] Lymphocytes Abs 2.4 0.9 - 3.2 x10(3)/[facility] Monocyte % 8.7 % [facility] Monocyte Abs 0.6 0.3 - 0.9 x10(3)/[facility] Eos % 3.9 % [facility] Eosinophils Abs 0.3 0.0 - 0.4 x10(3)/[facility] Basophil % 0.7 % [facility] Baso Absolute 0.0 0.0 - 0.1 x10(3)/[facility] Immature Gran % 0.30 % [facility] Comment: Immature granulocytes(IG's)percentage and absolute count will include metamyelocytes, myelocytes, and promyelocytes. Blood smears from CBCs yielding IG's will be scanned manually for concordance. If this scan disagrees with the automated IG or if promyelocytes are noted, a manual differential will be performed. Immature Gran Absolute 0.02 0.00 - 0.04 x10(3)/[facility] Blood 04/17/2023 3:33 AM EST 04/17/2023 3:42 AM EST Narrative Resulting Agency Comment Spec In Lab Terrence Maloney MD HEMATOLOGY ORDERABLE S Performing Organization Address City/State/[facility] Co de Phone Number [facility] [place] [address] * Hemogram (04/17/2023 3:33 AM EST) White Blood Cell 7.4 4.0 - 9.5 x10(3)/[facility] Red Blood Cell 4.79 4.00 - 5.21 x10(6)/[facility] Hemoglobin 14.8 11.7 - 15.5 g/dL [facility] Hematocrit 44.3 35.7 - 45.8 % [facility] Mean Cell Volume 92.5 82.6 - 94.4 fL [facility] Mean Cell Hemoglobin 30.9 27.1 - 32.0 pg [facility] Mean Cell Hemoglobin Concentration 33.4 31.7 - 35.0 g/dL [facility] Platelet 233 145 - 357 x10(3)/[facility] RDW Standard Deviation 43.4 37.0 - 46.0 fL [facility] RDW coefficient of variation 12.7 11.5 - 14.1 % [facility] Mean Platelet Volume 11.0 7.6 - 12.9 fL [facility] NRBC% auto 0.0 % [facility] NRBC Absolute 0.000 0.000 - 0.000 x10(3)/[facility] Blood 04/17/2023 3:33 AM EST 04/17/2023 3:42 AM EST Narrative Resulting Agency Comment Spec In Lab Terrence Maloney MD HEMATOLOGY ORDERABLE S Performing Organization Address [facility] Co de Phone Number [facility] [place] [address] * Sedimentation rate (04/17/2023 3:33 AM EST) Sedimentation Rate Automated 12 2 - 39 mm/hr [facility] Comment: Effective February 15, 2019 new capillary photometric technology has resulted in a change in reference ranges. It is recommended that each ESR result be reviewed with its own age appropriate reference range. Blood 04/17/2023 3:33 AM EST 04/17/2023 3:42 AM EST Narrative Resulting Agency Comment Spec In Lab Terrence Maloney MD HEMATOLOGY ORDERABLE S Performing Organization Address City/[facility]/ZIP Co de Phone Number [facility] [place] [address] * CRP, acute inflammation (04/17/2023 3:33 AM EST) C-Reactive Protein <3.0 <=4.9 mg/L [facility] Blood 04/17/2023 3:33 AM EST 04/17/2023 3:42 AM EST Narrative Resulting Agency Comment Spec In Lab Terrence Maloney MD CHEMISTRY ORDERABLES [facility] [place] [address] * (ABNORMAL) Troponin (04/17/2023 3:33 AM EST) Troponin-T, High Sensitivity 24(H) <=14 ng/L [facility] Comment: This patient's troponin T [...] troponin value can be found in the [facility] Laboratory Test Catalog Troponin - [facility] Laboratory Test Catalog Reference: Fourth Opp Definition of Myocardial Infarction. Journal of the [place] College [employer] Cardiology 2018;72:7053-2515 Blood 04/17/2023 3:33 AM EST 04/17/2023 3:42 AM EST Narrative Resulting Agency Comment Spec In Lab Terrence Maloney MD CHEMISTRY ORDERABLES Performing Organization Address City/[facility]/ZIP Co de Phone Number [facility] [place] [address] * (ABNORMAL) APTT (04/17/2023 3:33 AM EST) Partial Thromboplastin Time 40(H) 25 - 37 sec [facility] Comment: The PTT is NOT [...] Performing Organization Address [facility] Co de Phone Number [facility] [place] [address] * (ABNORMAL) Prothrombin Time (04/17/2023 3:33 AM EST) Prothrombin Time 13.3(H) 9.4 - 12.5 sec [facility] International Normalization Ratio 1.2 [facility] Comment: An INR <2.0 indicates [...] Performing Organization Address [facility] Co de Phone Number [facility] [place] [address] * Hepatic Function Panel (04/17/2023 3:33 AM EST) Protein, Total 6.9 6.1 - 8.0 g/dL [facility] Albumin 4.2 3.2 - 5.2 g/dL [facility] Aspartate Aminotransferase Not Perf 0 - 30 [facility] Comment: Unable to quantitate due to sample hemolysis. ??Sample redraw suggested. Called by: Danny Bowles, Read back by: Nyla Cassidy, Date/Time:04/17/23 05:06. Alanine Aminotransferase 17 0 - 30 unit/L [facility] Alkaline Phosphatase 59 35 - 105 unit/L [facility] Bilirubin, Total 0.4 0.2 - 1.3 mg/dL [facility] Bilirubin, Direct 0.1 0.0 - 0.3 mg/dL [facility] Blood 04/17/2023 3:33 AM EST 04/17/2023 3:42 AM EST Narrative Resulting Agency Comment Spec In Lab Terrence Maloney MD CHEMISTRY ORDERABLES Performing Organization Address City/[facility]/ZIP Co de Phone Number [facility] [place] [address] * (ABNORMAL) pro-Brain Natriuretic Peptide (04/17/2023 3:33 AM EST) NT-proBNP 867(H) <=124 pg/mL [facility] Blood 04/17/2023 3:33 AM EST 04/17/2023 3:42 AM EST Narrative Resulting Agency Comment Spec In Lab Terrence Maloney MD CHEMISTRY ORDERABLES Performing Organization Address [facility] Co de Phone Number [facility] [place] [address] * (ABNORMAL) TSH (04/17/2023 3:33 AM EST) Thyroid Stimulating Hormone 5.93(H) 0.27 - 4.20 mcIU/mL [facility] Comment: Reference Interval (mcIU/mL): Females: ??First Trimester: 0.23-3.88 ??Second Trimester: 0.22-3.90 ??Third Trimester: 0.44-4.66 Blood 04/17/2023 3:33 AM EST 04/17/2023 3:42 AM EST Narrative Resulting Agency Comment Spec In Lab Terrence Maloney MD CHEMISTRY ORDERABLES Performing Organization Address City/[facility] Co de Phone Number [facility] [place] [address] * Phosphorus (04/17/2023 3:33 AM EST) Phosphorus 4.1 2.5 - 4.5 mg/dL [facility] Blood 04/17/2023 3:33 AM EST 04/17/2023 3:42 AM EST Narrative Resulting Agency Comment Spec In Lab Terrence Maloney MD CHEMISTRY ORDERABLES Performing Organization Address [facility] Co de Phone Number [facility] [place] [address] * Magnesium (04/17/2023 3:33 AM EST) Magnesium 0.99 0.69 - 1.07 mmol/L [facility] Blood 04/17/2023 3:33 AM EST 04/17/2023 3:42 AM EST Narrative Resulting Agency Comment Spec In Lab Terrence Maloney MD CHEMISTRY ORDERABLES Performing Organization Address [facility]/[place] de Phone Number [facility] [place] [address] * (ABNORMAL) Basic Metabolic Panel (non-fasting) (04/17/2023 3:33 AM EST) Glucose 89 65 - 199 mg/dL [facility] Comment:Diabetes: >=200 mg/d L plus symptoms Blood Urea Nitrogen 19(H) 8 - 18 mg/dL [facility] Creatinine 1.19 0.70 - 1.20 mg/dL [facility] Sodium 141 135 - 145 mmol/L [facility] Potassium 4.0 3.5 - 5.0 mmol/L [facility] Comment: Please note: ??Patients with WBC >100,000 may have falsely elevated Potassium levels. ??For accurate Potassium quantification in these patients send serum separator tube (gold top) for subsequent determinations. ??Contact the Clinical Chemistry Laboratory if there are any questions. Chloride 106 98 - 107 mmol/L [facility] Carbon Dioxide 22 22 - 31 mmol/L [facility] Anion Gap 13 5 - 15 mmol/L [facility] Calcium 9.4 8.5 - 10.5 mg/dL [facility] Est Glomerular Filtration Rate 54(L) >=60 mL/min/1. 73 m?? [facility] Comment: This patient's estimated [...] In Lab Terrence Maloney MD CHEMISTRY ORDERABLES [facility] [place] [address] * Film Library- Storage Only CT Chest [...] Jackson RN) 0924 (Given - Provider: China Meyrs) apixaban (Eliquis) tablet 5 mg 5 mg, [...] documented as of this encounter Care Teams Tool Or Die Drawing Checker Relationship Specialty Start Date End Date Polo Pearce PA [address] [place] [address] PCP - General Internal Medicine 06/09/21 documented as of this encounter
--- OUTSIDE RECORDS SUMMARY | 2024-01-24 21:11 | XMS_ITS | Encounter Summary ---
[place] [address] Care Team Providers Care Cross Tie Turner Name Role Phone Polo Pearce Primary Care Provider [phone] Reason for Referral * Diagnostic Test (Routine) - Closed Specialty Diagnoses / Procedures Referred By Contac t Referred To Contact Radiology Diagnoses Chest pain, unspecified type Procedures NM PET CT Cardiac Sarcoid Maegan Mike APRN [facility] [place] [address] [place] [address] Referral ID Status Reason Start Date Expiration Date V isits Requested Visits Authorized [id number] Closed Specialty Service Requested 04/22/2023 10/20/2024 4 4 Reason for Visit * Diagnostic Test (Routine) - Closed Specialty Diagnoses / Procedures Referred By Contac t Referred To Contact Radiology Diagnoses Chest pain, unspecified type Procedures NM PET CT Cardiac Sarcoid Maegan Mike APRN [facility] [place] [address] [place] [address] Referral ID Status Reason Start Date Expiration Date V isits Requested Visits Authorized [id number] Closed Specialty Service Requested 04/22/2023 10/20/2024 4 4 Encounter Details Date Type Department Care Team (Latest Contact Info) Description 04/30/2023 11:01 AM EST Hospital En[place] [phone] Maegan Mike, [facility] [place] [place] [address] Chest pain, unspecified type Discharge Disposition: Home Social History Tobacco Use Types Packs/Day Years Used Date Smoking Tobacco: Never Smokeless Tobacco: Never Alcohol Use Standard Drinks/Week Comments Never 0 (1 standard drink = 0.6 oz pur e alcohol) [facility] Utilities Answer Date Recorded In the past 12 months has th e [employer], gas, oil, or water [employer] threatened to shut off services in [...] by mouth nightly. 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 90 tablet 1 06/11/2021 rOPINIRole (Requip) 1 mg Tablet Take 2 mg by mouth 2 times daily. 07/16/2020 loratadine (Claritin) 10 mg Tablet Take 10 mg by mouth daily as needed. fluticasone propionate (FLONASE) 50 mcg/actuation [place], Suspension 1 spray by Each Nare route [...] PM EST Office Visit Cardiology at [address] [place] [address] Jaspreet Kinsey MD [facility] [place] [address] documented as of this encounter Procedures Procedure [...] have questions please contact the health health careers instructor that requested your imaging first. ? 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 Following IV administration of 26.5 mCi technetium 99m sestamibi, SPECT-CT of the heart was obtained. Following IV injection of 8.8 mCi 02-gjvwig-6-deoxyglucose (FDG) and a standard uptake of approximately [...] obtained. Following IV injection of 8.8 mCi 82-gpcesv-4-deoxyglucose (FDG) and astandard uptake of approximately 60 [...] who have questions please contactthe health health careers instructor that requested your imaging first. Electronically signed by: Humberto Qureshi MD, [facility]([phone]), at 05/06/2023 11:09 AM Maegan Mike SHRINK PIT OPERATOR IMG PET ORDERABLE S * POCT Glucose (04/30/2023 12:19 PM EST) Glucose, POC 79 65 - 199 mg/dL [facility] Comment: Supplemental ranges: <140 mg/dL before meals <180 mg/dL all other times of the day Blood 04/30/2023 12:1 9 PM EST 04/30/2023 12:19 PM EST Maegan Mike SHRINK PIT OPERATOR POINT OF CARE LYNETTE T [place] [address] documented in this encounter Visit Diagnoses Diagnosis [...] Arm documented in this encounter Care Teams Cross Tie Turner Relationship Specialty Start Date End Date Polo Pearce PA [address] [place] [address] PCP - General Internal Medicine 06/09/21 documented as of this encounter
--- OUTSIDE RECORDS SUMMARY | 2024-01-24 21:11 | XMS_ITS | Encounter Summary ---
Author Organization [facility] [place] [address] Care Team Providers Care Envelope Addresser Name Role Phone Polo Pearce Primary Care Provider [phone] Encounter Details Date Type Department Care Team (Late st Contact Info) Description 06/14/2023 Telephone Cardiology at [address] [address] Sarah Kahn, PRINTMAKER [facility] [place] [address] Social History Tobacco Use Types Packs/Day Years Used Date Smoking Tobacco: Never Smokeless Tobacco: Never Alcohol Use Standard Drinks/Week Comments Never 0 (1 standard drink = 0.6 oz pur e alcohol) [facility] Utilities Answer Date Recorded In the past 12 months has e [employer], gas, oil, or water [employer] threatened to shut off services in [...] AM Referring Provider: Dr. Iyer Patient Location: [facility] Past Medical History: Mild, nonobstructive CAD, s/p [facility] 04/2023 for similar presentation SVT s/p [...] showed no evidence of inflammation/sarcoid. Troponin at [facility] at the time of her [...] or examined this patient. Sarah Kahn, MICHELL, PARADI TENDER-BC, PRINTMAKER [facility] Cardiovascular Medicine documented in this encounter Plan of Treatment Upcoming Encounters Date Type Department Care Team (Late st Contact Info) Description 02/10/2024 1:00 PM EST Office Visit Cardiology at [address] [address] Jaspreet Kinsey MD [facility] [place] [address] documented as of this encounter Visit Diagnoses Not on filedocumented in this encounter Care Teams Envelope Addresser Relationship Specialty Start Date End Date Polo Pearce PA [address] [facility] [address] [place] [address] PCP - General Internal Medicine 06/09/21 documented as of this encounter
--- OUTSIDE RECORDS SUMMARY | 2024-01-24 21:11 | XMS_ITS | Encounter Summary ---
[place] [address] Care Team Providers Care Water Softener Service Supervisor Name Role Phone Polo Pearce Primary Care Provider [phone] Reason for Visit * Diagnostic Test (Routine) - Closed Specialty Diagnoses / Procedures Referred By Jayant harris Referred To Contact Radiology Diagnoses Chest pain, unspecified type Procedures NM PET CT Cardiac Sarcoid Maegan Mike [facility] [place] [address] [place] [address] Referral ID Status Reason Start Date Expiration Date V isits Requested Visits Authorized [id number] Closed Specialty Service Requested 04/22/2023 10/20/2024 4 4 Encounter Details Date Type Department Care Team (Latest Contact Info) Description 04/30/2023 11:02 AM EST - 04/30/2023 11:04 AM EST Hospital Encounter [place] [address] [facility] [place] [address] Discharge Disposition: Home Social History Tobacco Use Types Packs/Day Years Used Date Smoking Tobacco: Never Smokeless Tobacco: Never Alcohol Use Standard Drinks/Week Comments Never 0 (1 standard drink = 0.6 oz pur e alcohol) [facility] Utilities Answer Date Recorded In the [...] by mouth nightly. 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 90 tablet 1 06/11/2021 rOPINIRole (Requip) 1 mg Tablet Take 2 mg by mouth 2 times daily. 07/16/2020 loratadine (Claritin) 10 mg Tablet Take 10 mg by mouth daily as needed. fluticasone propionate (FLONASE) 50 mcg/actuation [place], Suspension 1 spray by Each Nare route [...] PM EST Office Visit Cardiology at [address] [address] Jaspreet Kinsey MD [facility] [place] [address] documented as of this encounter Procedures Procedure [...] questions please contact the health wound care specialist that requested your imaging first. ? 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 Following IV administration of 26.5 mCi technetium 99m sestamibi, SPECT-CT of the heart was obtained. Following IV injection of 8.8 mCi 60-zfhtxb-4-deoxyglucose (FDG) and a standard uptake of approximately [...] obtained. Following IV injection of 8.8 mCi 82-zxvccf-5-deoxyglucose (FDG) and astandard uptake of approximately 60 [...] have questions please contactthe health wound care specialist that requested your imaging first. Electronically signed by: Humberto Qureshi MD, [facility]([phone]), at 05/06/2023 11:09 AM Maegan Mike EARLY CHILDHOOD SERVICES COORDINATOR IMG PET ORDERABLE S documented in this encounter Visit Diagnoses Not on filedocumented in this encounter Care Teams Water Softener Service Supervisor Relationship Specialty Start Date End Date Polo Pearce PA [address] [place] [address] PCP - General Internal Medicine 06/09/21 documented as of this encounter
--- OUTSIDE RECORDS SUMMARY | 2024-01-24 21:11 | XMS_ITS | Encounter Summary ---
Author Organization [facility] [place] [address] Care Team Providers Care Archives Director Name Role Phone Polo Pearce Primary Care Provider [phone] Encounter Details Date Type Department Care Team [...] PM EST Office Visit Cardiology at [address] [place] [address] Jaspreet Kinsey MD [facility] [place] [address] documented as of this encounter Visit Diagnoses Not on filedocumented in this encounter Care Teams Archives Director Relationship Specialty Start Date End Date Polo Pearce PA [address] [place] [address] PCP - General Internal Medicine 06/09/21 documented as of this encounter
--- OUTSIDE RECORDS SUMMARY | 2024-01-24 21:11 | XMS_ITS | Encounter Summary ---
Author Organization [facility] [place] [address] Care Team Providers Care Bundler Seasonal Greenery Name Role Phone Polo Pearce Primary Care Provider [phone] Encounter Details Date Type Department Care Team (Late st Contact Info) Description 06/14/2023 External Results [place] [address] Social History Tobacco Use Types Packs/Day Years [...] Yes 06/15/2023 Housing Stability Vital Sign Answer Mitchlel [...] PM EST Office Visit Cardiology at [address] [place] [address] Jaspreet Kinsey MD [facility] [address] documented as of this encounter Procedures Procedure Name Priority Date/Time Associated Diagnosis Comments ECG SCAN Routine 06/14/2023 11:24 AM EDT documented in this encounter Results * Scan Doc: ECG (06/14/2023 11:24 AM EDT) Historical Provider MEDIA MGR SCAN EX T ORDR/RSLT documented in this encounter Visit Diagnoses Not on filedocumented in this encounter Care Teams Bundler Seasonal Greenery Relationship Specialty Start Date End Date Polo Pearce PA [address] [place] [address] PCP - General Internal Medicine 06/09/21 documented as of this encounter
--- OUTSIDE RECORDS SUMMARY | 2024-01-24 21:12 | XMS_ITS | Encounter Summary ---
Author Organization [facility] [place] [address] Care Team Providers Care Business And Services Instructor Name Role Phone Polo Pearce Primary Care Provider [phone] Encounter Details Date Type Department Care Team (Late st Contact Info) Description 04/16/2023 Telephone Cardiology at [address] [address] Vaishnavi Pratt MD [facility] [place] [address] Social History Tobacco Use Types Packs/Day Years Used Date Smoking Tobacco: Never Smokeless Tobacco: Never Alcohol Use Standard Drinks/Week Comments Never 0 (1 standard drink = 0.6 oz pur e alcohol) [facility] Utilities Answer Date Recorded In the past 12 months has e [employer], gas, oil, or water [employer] threatened to shut off services in your [...] in a chcf (including now)? No 02/10/2023 IPV Inpatient Questions [...] included. Initial Contact Date: 04/16/23 Referring Provider: [place] Patient Location: [facility] HPI: 53 y.o. 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 Preceding this, she has documented sustained narrow complex tachycardia on 06/13/2021 in the context of hospitalization at [facility][1] for NSTEMI. 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 So she was transferred to [facility] for EPS and ablation. She now presents to [facility] with chest discomfortthat started overnight. Upon chart review of Rn notes, patient reports that prior to the procedure she was having chest pain, worse with laying flat. She continued to have feelings of warmth and diaphoresis which improvedmildly immediately after procedure but resumed a few days after. Patient also had an admission to [facility] for chest pain on 02/11/23 and it [...] that was done by the on-call overnight barber apprentice, there is no significant change in biventricular [...] and Asa load. Will accept patient to [facility] for further workup. Although history sounds suspicious for pericarditis, recent ESR/CRP were normal. Suspect at [facility] patient will need to complete ischemic workup. Recommendations: Heparin gtt, Asa load, High intensity statin Transfer to [facility] Above recommendations were based on my discussion with OSH; I have not personally interviewed or examined this patient. Advised to call the transfer center back with any changes in the patient condition. Vaishnavi Pratt MD [employer] documented in this encounter Plan of Treatment Upcoming Encounters Date Type Department Care Team (Late st Contact Info) Description 02/10/2024 1:00 PM EST Office Visit Cardiology at [address] [place] [address] Jaspreet Kinsey MD [facility] [place] [address] documented as of this encounter Visit Diagnoses Not on filedocumented in this encounter Care Teams Business And Services Instructor Relationship Specialty Start Date End Date Polo Pearce PA [address] [place] [address] PCP - General Internal Medicine 06/09/21 documented as of this encounter
--- OUTSIDE RECORDS SUMMARY | 2024-01-24 21:12 | XMS_ITS | Encounter Summary ---
Author Organization [facility] [place] [address] Care Team Providers Care Roller Inspector And Mender Name Role Phone Polo Pearce Primary Care Provider [phone] Reason for Visit * Reason Onset Date Comments Post Procedure Call 04/08/2023 Encounter Details Date Type Department Care Team (Late st Contact Info) Description 04/08/2023 Notes Only Cardiology at [address] [phone] Mary Motta, RN Post Procedure Call Social History Tobacco Use Types Packs/Day Years Used Date Smoking Tobacco: Never Smokeless Tobacco: Never Alcohol Use Standard Drinks/Week Comments Never 0 (1 standard drink = 0.6 oz pur e alcohol) [place] Utilities Answer Date Recorded In the past 12 months has [employer], gas, oil, or water [employer] threatened to shut off services in your [...] with Dr. Tovar in 1-3 months at [facility] Catheter Insertion Area Care - You [...] [facility]. The patient should be aware and [...] his/her physician or the Cardiac Electrophysiology Service ([phone]). documented in this encounter Plan of Treatment Upcoming Encounters Date Type Department Care Team (Late st Contact Info) Description 02/10/2024 1:00 PM EST Office Visit Cardiology at [address] [place] [address] Jaspreet Kinsey MD [facility] [place] [address] documented as of this encounter Visit Diagnoses Not on filedocumented in this encounter Care Teams Roller Inspector And Mender Relationship Specialty Start Date End Date Polo Pearce PA [address] [place] [address] PCP - General Internal Medicine 06/09/21 documented as of this encounter
--- OUTSIDE RECORDS SUMMARY | 2024-01-24 21:12 | XMS_ITS | Encounter Summary ---
Author Organization [facility] [place] [address] Care Team Providers Care Meals On Wheels Driver Name Role Phone Polo Pearce Primary Care Provider [phone] Encounter Details Date Type Department Care Team [...] PM EST Office Visit Cardiology at [address] [place] [phone] Jaspreet Kinsey MD [facility] [place] [address] documented as of this encounter Visit Diagnoses Not on filedocumented in this encounter Care Teams Meals On Wheels Driver Relationship Specialty Start Date End Date Polo Pearce PA [address] [place] [address] PCP - General Internal Medicine 06/09/21 documented as of this encounter
--- OUTSIDE RECORDS SUMMARY | 2024-01-24 21:12 | XMS_ITS | Encounter Summary ---
Author Organization [facility] [place] [address] Care Team Providers Care Corporate Analyst Name Role Phone Polo Pearce Primary Care Provider [phone] Encounter Details Date Type Department Care Team (Late st Contact Info) Description 04/02/2023 Telephone Cardiology at [address] [phone] Ambreen Cartagena Social History Tobacco Use Types Packs/Day Years Used Date Smoking Tobacco: Never Smokeless Tobacco: Never Alcohol Use Standard Drinks/Week Comments Never 0 (1 standard drink = 0.6 oz pur e alcohol) [facility] Utilities Answer Date Recorded In the past 12 months has e [employer], gas, oil, or water [employer] threatened to shut off services in [...] this patient in follow up at [facility] in 2-3 months. She had SVT ablation 04/01/23. Message sent Mary at [facility] to get pt scheduled there for f/up. Ambreen Cartagena Sr. Clinical Procedure [place]/Individual Pension Consultant documented in this encounter Plan of Treatment Upcoming Encounters Date Type Department Care Team (Late st Contact Info) Description 02/10/2024 1:00 PM EST Office Visit Cardiology at [address] [place] [phone] Jaspreet Kinsey MD [facility] [place] [address] documented as of this encounter Visit Diagnoses Not on filedocumented in this encounter Care Teams Corporate Analyst Relationship Specialty Start Date End Date Polo Pearce PA [address] [place] [address] PCP - General Internal Medicine 06/09/21 documented as of this encounter
--- OUTSIDE RECORDS SUMMARY | 2024-01-24 21:12 | XMS_ITS | Encounter Summary ---
Author Organization [facility] [address] Care Team Providers Care Supervisor Shellfish Farming Name Role Phone Polo Pearce Primary Care Provider [phone] Encounter Details Date Type Department Care Team (Late st Contact Info) Description 03/10/2023 Telephone Cardiology at [address] [address] Nilda Mayes, RN Social History Tobacco Use Types Packs/Day Years Used Date Smoking Tobacco: Never Smokeless Tobacco: Never Alcohol Use Standard Drinks/Week Comments Never 0 (1 standard drink = 0.6 oz pur e alcohol) [facility] Utilities Answer Date Recorded In the past 12 months has e [employer], gas, oil, or water [employer] threatened to shut off services in your [...] PM EST Office Visit Cardiology at [address] [phone] Jaspreet Kinsey MD [facility] [place] [address] documented as of this encounter Visit Diagnoses Not on filedocumented in this encounter Care Teams Supervisor Shellfish Farming Relationship Specialty Start Date End Date Polo Pearce PA [address] [place] [address] PCP - General Internal Medicine 06/09/21 documented as of this encounter
--- OUTSIDE RECORDS SUMMARY | 2024-01-24 21:12 | XMS_ITS | Encounter Summary ---
[place] [address] Care Team Providers Care Farmworker Fur Name Role Phone Polo Pearce Primary Care Provider [phone] Reason for Visit * Auth/Cert (Routine) Specialty Diagnoses / Procedures Referred By Contac t Referred To Contact Diagnoses NSTEMI (non-ST elevated myocardial infarction) NSTEMI Procedures ER Lloyd Pantoja MD [facility] [place] [place] [address] [facility] Referral ID Status Reason Start Date Expiration Date Visits Re quested Visits Authorized [id number] 1 1 Encounter Details Date Type Department Care Team (Late st Contact Info) Description 04/18/2023 9:00 AM EST - 04/18/2023 10:04 AM EST [place] [address] Dustin Carrasco MD [facility] [place] [place] [address] CARDIAC CATHETERIZATION Social History Tobacco Use Types Packs/Day Years Used Date Smoking Tobacco: Never Smokeless Tobacco: Never Alcohol Use Standard Drinks/Week Comments Never 0 (1 standard drink = 0.6 oz pur e alcohol) [facility] Utilities Answer Date Recorded In the past 12 months has th e electric, gas, oil, or water [employer] threatened to shut off services in your [...] Loida Madrigal Patient Age: 53 y.o. Language: Georgian Admit date: 04/16/2023 Discharge date and time: [...] lung disease secondary to obesity transferred from [facility] for further evaluation of exertional chest pressure and breathlessness. Abnormal OSH troponin 500 and repeat HS Trop at [facility] peak 27 with flat trend and elevated [...] discharge Inpatient Provider Contact Information: Cardiovascular Medicine [phone] Discharge Diagnoses (Hospital Problems) and Secondary Diagnoses [...] 04/01/[address] Tovar on [facility], restrictive lung disease secondary to obesity presents from [facility] with complains of chest discomfort that started overnight. The patient has been experiencing ongoing chest pain, prompting admission on 02/11/23 primarily due to concerns about a NSTEMI indicated by elevated troponin levels and EKG changes noted at OSH. However, the observed EKG changes remained largely consistent with previous recordings. Troponin levels at [facility] showed a plateau at 23 > 27. [...] responsive to SL NTG. Troponin ~500x2. Transferred[facility] for further evaluation. Troponin at [facility], 24>23 w/ repeat peak 27->26. She reported [...] days. Refills: 0 fluticasone propionate 50 mcg/actuation [place], Suspension Commonly known as: Flonase 1 spray [...] 9:40 AM Jaspreet Kinsey MD [facility] at [facility] Arrive at: [facility] [address] [phone] 09/21/2023 3:00 PM Jaspreet Kinsey MD [facility] at [facility] Arrive at: [facility] [address] [phone] Discharge References/Attachments None Greater than 30 minutes was spent on this discharge including documentation, [id number]-[id number] time withthe patient, patient education, recorder helper gravity prospecting, coordination with pharmacy and other patient care. [...] away. Stay on the phone. The emergency photo machine operator will tell you what to [...] of 8AM-5PM please call the Cardiology Clinic [phone] to speak with a nurse. All other hours please call the Hospital Voice Pathologist [phone] and ask to speak to the cardiology consultants on-call. Return to work: One week Follow up Appointments: Doctor Where Phone # Date Time PCP JOCY Franco [address] [place] [address] 04/28/2023 7:[address] Kinsey [facility] A 05/10/2023 9:40 AM * Attachments The following attachments cannot be sent through Care Everywhere. * Coronary Angiogram: Post-op (Georgian) documented in this encounter Medications at Time [...] by mouth nightly. empagliflozin (Jardiance) 10 mg TabletIndications:Resin Painter neal heart failure with preserved ejection fraction Take 1 tablet by mouth daily. 90 tablet 1 06/11/2021 rOPINIRole (Requip) 1 mg Tablet Take 2 mg by mouth 2 times daily. 07/16/2020 loratadine (Claritin) 10 mg Tablet Take 10 mg by mouth daily as needed. fluticasone propionate (FLONASE) 50 mcg/actuation [place], Suspension 1 spray by Each Nare route [...] reviewed with pt, pt wheeled to d[facility]c [facility]. I agree with the information in this [...] note were not included. CARDIOLOGY APP1 - [facility] DAILY PROGRESS NOTE Page [phone] to reach a provider 28/09 Admit Date: [...] to SL NTG. Troponin ~500x2. Transferred to [facility] for further evaluation. Troponin at [facility], 24>23. Reports exertional chest pressure and dyspnea [...] Score: 24 PT: OT: PCP JOCY Franco [phone] Discussed with MD Kurt Ray PA-C APP1 pager [phone] 04/22/2023 CV HOSPITALIST ADDENDUM Date of Service: [...] 04/21/2023 6:10 PM EST CARDIOLOGY APP1 - [facility] DAILY PROGRESS NOTE Page [phone] to reach a provider 28/09 Admit Date: [...] to SL NTG. Troponin ~500x2. Transferred to [facility] for further evaluation. Troponin at [facility], 24>23. Reports exertional chest pressure and dyspnea [...] occur Diet: Daily Healthy Menu Choices/Cardiac diet ([facility]-Diet) 2 GM NA DVT Prophylaxis: DOAC Code status: Attempt Cardiopulmonary Resuscitation - Inpatient Disposition: Discharge Location: AM-PAC Basic Mobility Raw Score: 22 PT: OT: PCP JOCY Franco [phone] * Eufemia Copeland MD - 04/20/2023 4:34 PM EST CARDIOLOGY APP1 - [facility] DAILY PROGRESS NOTE Page [phone] to reach a provider 28/09 Admit Date: [...] to SL NTG. Troponin ~500x2. Transferred to [facility] for further evaluation. Troponin at [facility], 24>23. Reports exertional chest pressure and dyspnea [...] occur Diet: Daily Healthy Menu Choices/Cardiac diet ([facility]-Diet) 2 GM NA; 2000 mL FLUID DVT Prophylaxis: DOAC Code status: Attempt Cardiopulmonary Resuscitation - Inpatient Disposition: Discharge Location: AM-PAC Basic Mobility Raw Score: 24 PT: OT: PCP JOCY Franco [phone] * Carrol La PA - 04/19/2023 12:32 PM EST CARDIOLOGY APP1 - [facility] DAILY PROGRESS NOTE Page [phone] to reach a provider 28/09 Admit Date: [...] to 70s with activity.. Imaging: [facility] 04/18/23 Conclusions: * Nonobstructive coronary artery [...] acute aortopathy. 4. No acute pulmonary findings. [facility] 06/09/2021-RA 4, PA 38/15 (24) PCWP 11, CO/CI 3.14/1.6. [facility] 08/30/2019-normal coronary arteries. Assessment & Plan: [...] to SL NTG. Troponin ~500x2. Transferred to [facility] for further evaluation. Troponin at [facility], 24>23. Reports exertional chest pressure and dyspnea [...] pericardial effusion. She underw ent [facility] on 04/18 which showed non-obstructive ASCVD. [...] continues. Diet: Daily Healthy Menu Choices/Cardiac diet ([facility]-Diet) 2 GM NA; 2000 mL FLUID DVT Prophylaxis: DOAC Code status: Attempt Cardiopulmonary Resuscitation - Inpatient Disposition: Discharge Location: AM-[facility] Basic Mobility Raw Score: 24 PT: OT: PCP JOCY Franco [phone] Discussed with MD Carrol Aly PA-C APP1 Pager: [phone] 04/19/2023 * Alex Lew RCP - 04/18/2023 [...] note were not included. CARDIOLOGY APP1 - [facility] DAILY PROGRESS NOTE Page [phone] to reach a provider 28/09 Admit Date: [...] breathlessness. Awaiting cardiac catheterization potentially today if Auto Brake Mechanic availability allows.She remains on ACS therapies. Medications: [...] acute aortopathy. 4. No acute pulmonary findings. [facility] 06/09/2021-RA 4, PA 38/15 (24) PCWP 11, CO/CI 3.14/1.6. [facility] 08/30/2019-normal coronary arteries. Assessment & Plan: [...] disease secondary to obesity presents from [facility] with complains of exertional chest pressure [...] drip if ongoing chest pain -[facility] 04/18 depending on Auto Brake Mechanic availability. #Hx of pAfib #Hx of AVNRT [...] Score: 24 PT: OT: PCP JOCY Franco [phone] Discussed with MD Kurt Sheppard PA-C APP1 pager [phone] 04/18/2023 * Kurt Silveira PA - 04/17/2023 7:15 AM EST Images from the original note were not included. CARDIOLOGY APP1 - [facility] DAILY PROGRESS NOTE Page [phone] to reach a provider 28/09 Admit Date: [...] disease secondary to obesity presents from [facility] with complains of exertional chest pressure [...] drip if ongoing chest pain -[facility] 04/18 or 04/19 depending on Auto Brake Mechanic availability. #Hx of pAfib #Hx of AVNRT sp EPS and Ablation - hold eliquis. Last taken on 04/16/23 am. - Continue IV heparin. # Hx of PE- continue with IV heparin Diet: No diet orders on file DVT Prophylaxis: DOAC Code status: Attempt Cardiopulmonary Resuscitation - Inpatient Disposition: Discharge Location: AM-PAC Basic Mobility Raw Score: 14 PT: OT: PCP JOCY Franco [phone] Discussed with MD Kurt Sheppard PA-C APP1 [...] 04/01/[address] Tovar on [facility], restrictive lung disease secondary to obesity presents from [facility] with complains of chest discomfort that started overnight. The patient has been experiencing ongoing chest pain, prompting admission on 02/11/23 primarily due to concerns about a NSTEMI indicated by elevated troponin levels and EKG changes noted at OSH. However, the observed EKG changes remained largely consistent with previous recordings. Troponin levels at [facility] showed a plateau at 23 > 27. 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 fluticasone propionate (FLONASE) 50 mcg/actuation [place], Suspension 1 spray by Each Nare route [...] 04/01/[address] Tovar on [facility], restrictive lung disease secondary to obesity presents from [facility] with complains of chest discomfort that [...] if hypotensive / cardiogenic shock / inferior ID / sildenafil within past 24 hours) - [...] (see comments), grab bar - tub/shower (CPAP [employer]) DME Needed at Discharge: N/A Patient is insured through: Primary Insurance: [employer] [place] Payor: [email or web address] / Plan[place] / Product Type: *No Product type* / Secondary Insurance: N/A Prescription Coverage: Yes This plan was formulated with input from patient and team. All are in agreement with plan. * Consult Note - Maegan Mike APRN - 04/22/2023 10:38 AM EST Images from the original note were not included. [facility] [place] [address] INPATIENT CARDIOLOGY CONSULT PROGRESS NOTE Interval events: [...] with MD Maegan De Leon APRN Pager [phone] 04/22/2023 Associated attestation - Jaspreet Kinsey MD [...] Tatum MSW - 04/20/2023 2:22 PM EST [employer] received a consult to support patient with financial concerns. SUPERVISOR [employer] met with patient and introduced self. Patient stated due to hospitalization, she has been out of work and feeling stress around not being able to pay bills. I have a car payment and other bills and it's like I have to choose which one to pay and which one not to pay. SUPER[employer]OR [employer] validated patient's stress around financial concerns. SUPERVISOR COMMISS[employer] asked patient if she has applied for [employer] or any other state benefits. Patient stated that she has, but is over the household income criteria to qualify for benefits. Patient shared that she owns her home outright and mainly concerned about making her car payment and transportation home. MSWstated that care management will help arrange for a ride, if needed. SUPERVISOR [employer] provided patient with community resources such as the [facility] Food Directory, the [facility] Community Action phone number, and the [facility] [place] on Aging contact info. SUPER[employer]OR [employer] available to support patient should anything else [...] COVID test: Lab Results Component Value Date [id number] Not Detected 06/13/2021 Past medical History: Past [...] shut off services in your home?: Yes ([place] is currently threatening to shut off electricity [...] (see comments), grab bar - tub/shower (CP[facility] [employer] [facility]) Home Address confirmed as: [address] [address] Social & Family Supports: All names listed [...] Specific Information: N/A Health/Prescription Coverage: Primary Insurance: [employer] [place] Payor: [email or web address] [place] / Plan: [place] / Product Type: *No Product type* / Secondary Insurance: N/A ; Prescription Coverage: Yes Preferred Pharmacy: [facility] - [place], [place] - [address] [facility] [address] [facility] - [place], [place] - [address] [facility] [address] [place] Status: Patient is a : No Primary Care Provider confirmed: JOCY Franco [phone] Patient/Caregiver Goals of Treatment: home w / family when MR Potential Needs for Transition of Care: other (see comments) (SUPER[employer]OR [employer] support; pt's spouse was denied twice for [...] Concerns to be Addressed: financial/insurance, discharge planning; SUPER[employer]OR [employer] consult placed to discuss available resources Assessment: [...] original note were not included. [facility] [place] [address] INPATIENT CARDIOLOGY CONSULT NOTE Reason for Consult: [...] DAPT and heparin prior to [facility] 04/18, which was negative for any [...] cathlab, came back ~1115am, s/p [facility] with no coronary artery disease seen. [...] for further details. JOCY Marie 04/17/2023 Pager [phone] * Plan of Care - Sudhakar Smith [...] PM EST Office Visit Cardiology at [address] [place] [id number] Jaspreet Kinsey MD [facility] [place] [address] documented as of this encounter Procedures Procedure [...] have questions please contact the health career consultant that requested your imaging first. ? 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 Following IV administration of 26.5 mCi technetium 99m sestamibi, SPECT-CT of the heart was obtained. Following IV injection of 8.8 mCi 88-nqzrzp-9-deoxyglucose (FDG) and a standard uptake of approximately [...] obtained. Following IV injection of 8.8 mCi 49-eiyjdv-1-deoxyglucose (FDG) and astandard uptake of approximately 60 [...] who have questions please contactthe health career consultant that requested your imaging first. Electronically signed by: Humberto Qureshi MD, [facility]([phone]), at 05/06/2023 11:09 AM Maegan Mike ROM [...] have questions please contact the health career consultant that requested your imaging first. ? [...] who have questions please contactthe health career consultant that requested your imaging first. Electronically signed by: Karon Nur MD, [facility] ([phone]), at 04/21/2023 5:33 PM Lloyd Maloney MD IMG MRI ORDERABLES * Hemogram (04/21/2023 3:40 AM EST) White Blood Cell 7.1 4.0 - 9.5 x10(3)/[facility] LABORATORY Red Blood Cell 4.59 4.00 - 5.21 x10(6)/[facility] LABORATORY Hemoglobin 14.4 11.7 - 15.5 g/dL [facility] Hematocrit 43.0 35.7 - 45.8 % [facility] Mean Cell Volume 93.7 82.6 - 94.4 fL [facility] Mean Cell Hemoglobin 31.4 27.1 - 32.0 pg [facility] Mean Cell Hemoglobin Concentration 33.5 31.7 - 35.0 g/dL [facility] Platelet 221 145 - 357 x10(3)/[facility] LABORATORY RDW Standard Deviation 43.5 37.0 - 46.0 fL [facility] RDW coefficient of variation 12.6 11.5 - 14.1 % [facility] Mean Platelet Volume 11.1 7.6 - 12.9 fL [facility] NRBC% auto 0.0 % [facility] NRBC Absolute 0.000 0.000 - 0.000 x10(3)/mcL [facility] Blood 04/21/2023 3:40 AM EST 04/21/2023 3:58 AM EST Narrative Resulting Agency Comment Spec In Lab Ailyn Knight MD HEMATOLOGY ORDERABLE S [facility] [place] [address] * (ABNORMAL) BMP w/fasting Glucose (04/21/2023 3:40 AM EST) Glucose Fasting 107(H) 65 - 99 mg/dL [facility] Comment: ?Fasting* Glucose Interpretive [...] of Diabetes Mellitus, Position Statement from the [place] Diabetes Association. ??Diabetes Care, Volume 33, Supplement 1, Mar 2009 Blood Urea Nitrogen 20(H) 8 - 18 mg/dL [facility] Creatinine 1.14 0.70 - 1.20 mg/dL [facility] Sodium 138 135 - 145 mmol/L [facility] Potassium 3.8 3.5 - 5.0 mmol/L [facility] Comment: Please note: ??Patients with WBC >100,000 may have falsely elevated Potassium levels. ??For accurate Potassium quantification in these patients send serum separator tube (gold top) for subsequent determinations. ??Contact the Clinical Chemistry Laboratory if there are any questions. Chloride 106 98 - 107 mmol/L [facility] Carbon Dioxide 22 22 - 31 mmol/L [facility] Anion Gap 10 5 - 15 mmol/L [facility] Calcium 9.2 8.5 - 10.5 mg/dL [facility] Est Glomerular Filtration Rate 57(L) >=60 mL/min/1. 73 m?? [facility] Comment: This patient's estimated [...] CHEMISTRY ORDERABLES Performing Organization Address [facility] Co de Phone Number [facility] [place] [address] * Magnesium (04/21/2023 3:40 AM EST) Magnesium 0.90 0.69 - 1.07 mmol/L [facility] Blood 04/21/2023 3:40 AM EST 04/21/2023 3:58 AM EST Narrative Resulting Agency Comment Spec In Lab Ailyn Knight MD CHEMISTRY ORDERABLES Performing Organization Address [facility] Co de Phone Number [facility] [place] [address] * (ABNORMAL) Troponin (04/20/2023 4:44 PM EST) Troponin-T, High Sensitivity 26(H) <=14 ng/L [facility] Comment: This patient's troponin [...] Medical Center Laboratory Test Catalog Reference: Fourth [place] Point Definition of Myocardial Infarction. Journal of the [place] College of Cardiology 2018;72:5277-6005 Blood 04/20/2023 4:44 PM EST 04/20/2023 4:53 PM EST Narrative Resulting Agency Comment Spec In Lab Eufemia Copeland MD CHEMISTRY ORDERABL ES [facility] [place] [address] * Duplex for DVT, Arm, Unilat (04/20/2023 4:22 PM EST) VB Text Report Department: Vascular Surgery Lab Patient: [id number] (LOIDA MADRIGAL) CPT: 23567 Referring Physician: LLOYD MALONEY ?? Phone: Indications: [...] EST) Troponin-T, High Sensitivity 27(H) <=14 ng/L [facility] Comment: This patient's troponin [...] Medical Center Laboratory Test Catalog Reference: Fourth [place] Definition of Myocardial Infarction. Journal of the [place] College of Cardiology 2018;72:8160-5783 Blood 04/20/2023 1:47 PM EST 04/20/2023 2:18 PM EST Narrative Resulting Agency Comment Spec In Lab Eufemia Copeland MD CHEMISTRY ORDERABL ES Performing Organization Address City/[facility]/ZIP Co de Phone Number [facility] [place] [address] * (ABNORMAL) Troponin (04/20/2023 10:48 AM EST) Troponin-T, High Sensitivity 24(H) <=14 ng/L [facility] Comment: This patient's troponin [...] Medical Center Laboratory Test Catalog Reference: Fourth [place] Definition of Myocardial Infarction. Journal of the [place] College of Cardiology 2018;72:7845-0521 Blood 04/20/2023 10:4 8 AM EST 04/20/2023 11:03 AM EST Narrative Resulting Agency Comment Spec In Lab Eufemia Copeland MD CHEMISTRY ORDERABL ES Performing Organization Address City/[facility]/ZIP Co de Phone Number [facility] [place] [address] * EKG 12 Lead (04/20/2023 10:23 AM EST) Ventricular rate 60 BPM MUSE SYSTEM Atrial Rate 60 BPM MUSE SYSTEM P-R Interval 170 ms MUSE SYSTEM QRS Duration 86 ms MUSE SYSTEM Q-T Interval 470 ms MUSE SYSTEM QTC Calculated (Bezet) 470 ms MUSE SYSTEM Calculated P [place] 39 degrees MUSE SYSTEM Calculated R [place] 63 degrees MUSE SYSTEM Calculated T [place] -16 degrees MUSE SYSTEM INTERPRETATION Normal sinus [...] leads Confirmed by MD Eli, Manish Toledo ([id number]) on 04/22/2023 12:10:07 PM MUSE SYSTEM 04/20/2023 10:2 3 AM EST 04/22/2023 12:10 PM EST Lloyd Maloney MD ECG ORDERABLES MUSE SYSTEM * Hemogram (04/20/2023 3:11 AM EST) White Blood Cell 6.6 4.0 - 9.5 x10(3)/[facility] LABORATORY Red Blood Cell 4.59 4.00 - 5.21 x10(6)/[facility] LABORATORY Hemoglobin 14.2 11.7 - 15.5 g/dL [facility] Hematocrit 42.7 35.7 - 45.8 % [facility] Mean Cell Volume 93.0 82.6 - 94.4 fL [facility] Mean Cell Hemoglobin 30.9 27.1 - 32.0 pg [facility] Mean Cell Hemoglobin Concentration 33.3 31.7 - 35.0 g/dL [facility] Platelet 231 145 - 357 x10(3)/[facility] LABORATORY RDW Standard Deviation 43.6 37.0 - 46.0 fL [facility] RDW coefficient of variation 12.6 11.5 - 14.1 % [facility] Mean Platelet Volume 11.0 7.6 - 12.9 fL [facility] NRBC% auto 0.0 % [facility] LAB[facility] NRBC Absolute 0.000 0.000 - 0.000 x10(3)/mcL [facility] Blood 04/20/2023 3:11 AM EST 04/20/2023 3:24 AM EST Narrative Resulting Agency Comment Spec In Lab Ailyn Knight MD HEMATOLOGY ORDERABLE S [facility] [address] [place] [address] * (ABNORMAL) BMP w/fasting Glucose (04/20/2023 3:11 AM EST) Glucose Fasting 107(H) 65 - 99 mg/dL [facility] Comment: ?Fasting* Glucose Interpretive [...] of Diabetes Mellitus, Position Statement from the [place] Diabetes Association. ??Diabetes Care, Volume 33, Supplement 1, Mar 2009 Blood Urea Nitrogen 20(H) 8 - 18 mg/dL [facility] Creatinine 1.05 0.70 - 1.20 mg/dL [facility] Sodium 139 135 - 145 mmol/L [facility] Potassium 3.6 3.5 - 5.0 mmol/L [facility] Comment: Please note: ??Patients with WBC >100,000 may have falsely elevated Potassium levels. ??For accurate Potassium quantification in these patients send serum separator tube (gold top) for subsequent determinations. ??Contact the Clinical Chemistry Laboratory if there are any questions. Chloride 106 98 - 107 mmol/L [facility] Carbon Dioxide 21(L) 22 - 31 mmol/L [facility] Anion Gap 12 5 - 15 mmol/L [facility] Calcium 9.3 8.5 - 10.5 mg/dL [facility] Est Glomerular Filtration Rate 63 >=60 mL/min/1. 73 m?? [facility] Comment: This patient's estimated [...] CHEMISTRY ORDERABLES Performing Organization Address [facility] Co de Phone Number [facility] [place] [address] * Magnesium (04/20/2023 3:11 AM EST) Magnesium 0.91 0.69 - 1.07 mmol/L [facility] Blood 04/20/2023 3:11 AM EST 04/20/2023 3:24 AM EST Narrative Resulting Agency Comment Spec In Lab Ailyn Knight MD CHEMISTRY ORDERABLES Performing Organization Address [facility] Co de Phone Number [facility] [place] [address] * Respiratory Panel PCR (04/19/2023 2:05 PM EST) Respiratory Panel Source FACILITY 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 ??Negative results do not preclude respiratory infection and should not be used as the sole basis for diagnosis, treatment or other management decisions. Adenovirus Not Detected Not Detected [facility] Coronavirus HKU1 Not Detected Not Detected [facility] Coronavirus NL63 Not Detected Not Detected [facility] Coronavirus 229E Not Detected Not Detected [facility] Coronavirus OC43 Not Detected Not Detected [facility] SARS-CoV-2 Not Detected Not Detected [facility] Comment: Testing for SARS-CoV-2 (Severe acute respiratory syndrome coronavirus 2) to aid in the diagnosis of COVID-19 is performed using the BioFire Respiratory Panel 2.1 ([employer]) as authorized by the FDA issued Emergency Use Authorization (EUA). This panel also tests for multiple other viral and bacterial pathogens. This assay is intended for In-vitro Diagnostic (IVD) use with nasopharyngeal swabs in viral transport media. The assay is performed based on the instructions for use and additional guidance provided by the FDA. Testing is performed in laboratories within the [facility], each of which is certified under [...] fact sheets at the following FDA website: https://www.fda.gov/medical-devices/hotqgnocwzb-qjflxnx-6924-sdhka-21-ftnhinhzt- use-a pnpmqomfyvnim-dekoiza-begtmkx/ebzxk-kaziwaidxid-sjwe Human Metapneumovirus Not Detected Not Detected [facility] Human Rhinovirus/Enterov irus Not Detected Not Detected [facility] Influenza A Not Detected Not Detected [facility] Influenza B Not Detected Not Detected [facility] Parainfluenza 1 Not Detected Not Detected [facility] Parainfluenza 2 Not Detected Not Detected [facility] Parainfluenza 3 Not Detected Not Detected [facility] Parainfluenza 4 Not Detected Not Detected [facility] Respiratory Syncytial Virus Not Detected Not Detected [facility] Chlamydophila pneumoniae Not Detected Not Detected [facility] Mycoplasma pneumoniae Not Detected Not Detected [facility] Nasopharyngeal Swab Other / Unknown 04/19 2:05 PM EST 04/19/2023 3:16 PM EST Narrative Resulting Agency Comment Spec In Lab Carrol SANDRA MICROBIOLOGY - GENER AL ORDERABLES Performing Organization Address City/[facility]/ZIP Co de Phone Number [facility] [place] [address] * (ABNORMAL) Urine culture (04/19/2023 10:25 AM EST) Urine Culture 10,000-49,000 cfu/ml mixed mucosal elmer Note: Culture shows multiple bacterial species suggesting mucosal contamination. (A) [facility] Clean Catch Urine 04/19/2023 10:25 AM EST 04/19/2023 12:49 PM EST Narrative Resulting Agency Comment Spec In Lab Carrol SANDRA MICROBIOLOGY - GENER AL ORDERABLES Performing Organization Address City/[facility]/[place] [address] * (ABNORMAL) Urinalysis Microscopic Exam (04/19/2023 10:25 AM EST) RBC, Urine 1 0 - 4 /HPF [facility] WBC, Urine 10(H) 0 - 5 /HPF [facility] Squamous Epithelial Cells Raw Data, Urine 4 <=4 /HPF [facility] Hyaline Casts, Urine 1 0 - 2 /LPF [facility] Clean Catch Urine 04/19/2023 10:25 AM EST 04/19/2023 11:08 AM EST Narrative Resulting Agency Comment Spec In Lab Carrol SANDRA URINE ORDERABLES [facility] [place] [address] * (ABNORMAL) Urinalysis with reflex Culture (04/19/2023 10:25 AM EST) Glucose, Urine Dipstick >=1000(Criti edy) Negative mg/dL [facility] Comment: Urinalysis result NOT critical without a combination of Glucose greater than or equal to 500 mg/dL AND Ketones greater than or equal to 80 mg/dL Protein, Urine Dipstick Negative Negative mg/dL [facility] Bilirubin, Urine Dipstick Negative Negative mg/dL [facility] Comment: Clinical correlation required for positive Urine Bilirubin results as false positive may occur with some drugs and drug related products. If a false positive is suspected a serum total bilirubin should be considered if clinically indicated. Urobilinogen, Urine Dipstick Normal Normal mg/dL [facility] pH, Urn (dipstick) 5.5 5.0 - 8.0 [facility] Blood, Urine Dipstick Negative Negative mg/dL [facility] Ketone, Urine Dipstick Negative Negative mg/dL [facility] Nitrite, Urine Dipstick Negative Negative [facility] Leukocytes, Urine Dipstick Small(A) Negative mcL [facility] Appearance, Urine Dipstick Clear Clear [facility] Specific [place] Urine Automated 1.024 1.005 - 1.030 [facility] Color, Urine Dipstick Yellow Yellow [facility] Reflex to Culture Yes [facility] Clean Catch Urine 04/19/2023 10:25 AM EST 04/19/2023 11:08 AM EST Narrative Resulting Agency Comment Spec In Lab Ailyn Knight MD URINE ORDERABLES [facility] [place] [address] * Arterial Duplex Arm, Unilat (04/19/2023 9:40 AM EST) VB Text Report Department: Vascular Surgery Lab Patient: [id number] (LOIDA MADRIGAL) CPT: 78608 Referring Physician: AILYN KNIGHT ?? Phone: Indications: [...] White Blood Cell 7.5 4.0 - 9.5 x10(3)/[facility] Red Blood Cell 4.86 4.00 - 5.21 x10(6)/[facility] Hemoglobin 14.8 11.7 - 15.5 g/dL [facility] Hematocrit 45.5 35.7 - 45.8 % [facility] Mean Cell Volume 93.6 82.6 - 94.4 fL [facility] Mean Cell Hemoglobin 30.5 27.1 - 32.0 pg [facility] Mean Cell Hemoglobin Concentration 32.5 31.7 - 35.0 g/dL [facility] Platelet 240 145 - 357 x10(3)/[facility] RDW Standard Deviation 43.8 37.0 - 46.0 fL [facility] RDW coefficient of variation 12.7 11.5 - 14.1 % [facility] Mean Platelet Volume 11.0 7.6 - 12.9 fL [facility] NRBC% auto 0.0 % [facility] NRBC Absolute 0.000 0.000 - 0.000 x10(3)/[facility] Blood 04/19/2023 2:40 AM EST 04/19/2023 2:57 AM EST Narrative Resulting Agency Comment Spec In Lab Ailyn Knight MD HEMATOLOGY ORDERABLE S [facility] [place] [address] * (ABNORMAL) BMP w/fasting Glucose (04/19/2023 2:40 AM EST) [facility] Glucose Fasting 106(H) 65 - 99 mg/dL [facility] Comment: ?Fasting* Glucose Interpretive [...] of Diabetes Mellitus, Position Statement from the [place] [employer]. ??Diabetes Care, Volume 33, Supplement 1, Mar 2009 Blood Urea Nitrogen 22(H) 8 - 18 mg/dL [facility] Creatinine 1.11 0.70 - 1.20 mg/dL [facility] Sodium 139 135 - 145 mmol/L [facility] Potassium 4.0 3.5 - 5.0 mmol/L [facility] Comment: Please note: ??Patients with WBC >100,000 may have falsely elevated Potassium levels. ??For accurate Potassium quantification in these patients send serum separator tube (gold top) for subsequent determinations. ??Contact the Clinical Chemistry Laboratory if there are any questions. Chloride 105 98 - 107 mmol/L [facility] Carbon Dioxide 20(L) 22 - 31 mmol/L [facility] Anion Gap 14 5 - 15 mmol/L [facility] Calcium 9.5 8.5 - 10.5 mg/dL [facility] Est Glomerular Filtration Rate 59(L) >=60 mL/min/1. 73 m?? [facility] Comment: This patient's estimated [...] CHEMISTRY ORDERABLES Performing Organization Address [facility] de Phone Number [facility] [place] [address] * Magnesium (04/19/2023 2:40 AM EST) Magnesium 0.97 0.69 - 1.07 mmol/L [facility] Blood 04/19/2023 2:40 AM EST 04/19/2023 2:57 AM EST Narrative Resulting Agency Comment Spec In Lab Ailyn Knight MD CHEMISTRY ORDERABLES Performing Organization Address [facility] de Phone Number [place] [phone] * CARDIAC CATHETERIZATION (04/18/2023 11:05 AM EST) Anatomical Region Laterality Modality Other Narrative 04/19/2023 6:57 AM EST ?[place] ? Cardiac Catheterization/Intervention Report ? Patient Name: Neisha, Loida ? Procedure Date: 04/18/2023 ? A #: [id number] ? Primary Physician: Dustin Carrasco ? Case #: [id number] ? File Name: [id number] ? Catheterization Order Number: [id number] ? [facility] ? Final Report [place], [place] ? Patient Name: ? Loida Neisha ? ID#: ?[id number] ? : ?1970 ? Procedure Date: ? [...] procedure was Urgent. The indication for ?the nitriles lab technician visit is ACS greater than [...] Procedure Note Dustin Carrasco MD - 05/03/2023 [place] Cardiac Catheterization/Intervention Report Patient Name: Loida Madrigal Procedure Date: 04/18/2023 A #: [id number] Primary Physician: Dustin Carrasco Case #: [id number] File Name: [id number] Catheterization Order Number: [id number] [facility] FinalReport [place], [place] Patient Name: Loida Madrigal ID#:[id number] :1970 Procedure Date: April 18, 2023 Case [...] patient was designated as ASA Class III. [facility] 4: Vulnerable. [...] diagnostic procedure was Urgent. The indicationfor the nitriles lab technician visit is ACS greater than [...] units of heparin were administered. A total [id number] of Omnipaque were opened, 65cc of Omnipaque were administered [id number] of Omnipaque were wasted. Radiation: Fluoro time [...] (unfractionated) Level (04/18/2023 8:23 AM EST) Pathologist [facility] UF Heparin 0.39 IU/mL [facility] Comment: Heparin (anti-Xa) levels [...] Lab Lloyd Maloney MD HEMATOLOGY ORDERABLE S [facility] [place] [address] * Differential, Automated (04/18/2023 2:10 AM EST) Pathologist [facility] Neutrophil % 51.4 % [facility] Neutrophil Absolute 3.43 1.70 - 6.10 x10(3)/[facility] Lymph % 33.8 % [facility] Lymphocytes Abs 2.2 0.9 - 3.2 x10(3)/[facility] Monocyte % 9.9 % [facility] Monocyte Abs 0.7 0.3 - 0.9 x10(3)/[facility] Eos % 3.9 % [facility] Eosinophils Abs 0.3 0.0 - 0.4 x10(3)/[facility] Basophil % 0.8 % [facility] Baso Absolute 0.0 0.0 - 0.1 x10(3)/[facility] Immature Gran % 0.20 % [facility] Comment: Immature granulocytes(IG's)percentage and absolute count will include metamyelocytes, myelocytes, and promyelocytes. Blood smears from CBCs yielding IG's will be scanned manually for concordance. If this scan disagrees with the automated IG or if promyelocytes are noted, a manual differential will be performed. Immature Gran Absolute 0.01 0.00 - 0.04 x10(3)/[facility] Blood 04/18/2023 2:10 AM EST 04/18/2023 2:44 AM EST Narrative Resulting Agency Comment Spec In Lab Lloyd Maloney MD HEMATOLOGY ORDERABLE S Performing Organization Address City/State/[facility] Co de Phone Number [facility] [place] [address] * Hemogram (04/18/2023 2:10 AM EST) White Blood Cell 6.7 4.0 - 9.5 x10(3)/[facility] Red Blood Cell 4.93 4.00 - 5.21 x10(6)/[facility] Hemoglobin 15.2 11.7 - 15.5 g/dL [facility] Hematocrit 44.9 35.7 - 45.8 % [facility] Mean Cell Volume 91.1 82.6 - 94.4 fL [facility] Mean Cell Hemoglobin 30.8 27.1 - 32.0 pg [facility] Mean Cell Hemoglobin Concentration 33.9 31.7 - 35.0 g/dL [facility] Platelet 233 145 - 357 x10(3)/[facility] RDW Standard Deviation 42.0 37.0 - 46.0 fL [facility] RDW coefficient of variation 12.8 11.5 - 14.1 % [facility] Mean Platelet Volume 11.3 7.6 - 12.9 fL [facility] NRBC% auto 0.0 % [facility] NRBC Absolute 0.000 0.000 - 0.000 x10(3)/mcL [facility] Blood 04/18/2023 2:10 AM EST 04/18/2023 2:44 AM EST Narrative Resulting Agency Comment Spec In Lab Lloyd Maloney MD HEMATOLOGY ORDERABLE S Performing Organization Address [facility] de Phone Number [facility] [place] [address] * Heparin (unfractionated) Level (04/18/2023 2:10 AM EST) UF Heparin 0.50 IU/mL [facility] Comment: Heparin (anti-Xa) levels [...] ORDERABLE S Performing Organization Address [facility] de Phone Number [facility] [place] [address] * (ABNORMAL) BMP w/fasting Glucose (04/18/2023 2:10 AM EST) Glucose Fasting 98 65 - 99 mg/dL [facility] Comment: ?Fasting* Glucose Interpretive Criteria [...] of Diabetes Mellitus, Position Statement from the [place] [employer]. ??Diabetes Care, Volume 33, Supplement 1, Mar 2009 Blood Urea Nitrogen 23(H) 8 - 18 mg/dL [facility] Creatinine 1.18 0.70 - 1.20 mg/dL [facility] Sodium 143 135 - 145 mmol/L [facility] Potassium 3.6 3.5 - 5.0 mmol/L [facility] Comment: Please note: ??Patients with WBC >100,000 may have falsely elevated Potassium levels. ??For accurate Potassium quantification in these patients send serum separator tube (gold top) for subsequent determinations. ??Contact the Clinical Chemistry Laboratory if there are any questions. Chloride 107 98 - 107 mmol/L [facility] Carbon Dioxide 24 22 - 31 mmol/L [facility] Anion Gap 12 5 - 15 mmol/L [facility] Calcium 9.2 8.5 - 10.5 mg/dL [facility] Est Glomerular Filtration Rate 55(L) >=60 mL/min/1. 73 m?? [facility] Comment: This patient's estimated [...] In Lab Ailyn Knight MD CHEMISTRY ORDERABLES [facility] [place] [address] * Magnesium (04/18/2023 2:10 AM EST) Magnesium 1.02 0.69 - 1.07 mmol/L [facility] Blood 04/18/2023 2:10 AM EST 04/18/2023 2:44 AM EST Narrative Resulting Agency Comment Spec In Lab Ailyn Knight MD CHEMISTRY ORDERABLES Performing Organization Address City/[facility] Co de Phone Number [facility] [place] [address] * LDL Cholesterol, Direct (04/18/2023 2:10 AM EST) LDL Cholesterol, Direct 105 mg/dL [facility] Comment: Lowest Risk: <100 mg/dL Lower Risk: 100-129 mg/dL Borderline High Risk: 130-159 mg/dL High Risk: 160-189 mg/dL Very High Risk: >sd=415 mg/dL Blood 04/18/2023 2:10 AM EST 04/18/2023 2:44 AM EST Narrative Resulting Agency Comment Spec In Lab Lloyd Maloney MD CHEMISTRY ORDERABLES Performing Organization Address [facility] Co de Phone Number [facility] [place] [address] * Hemoglobin A1c (04/18/2023 2:10 AM EST) Hemoglobin A1c 5.6 4.3 - 5.6 % [facility] Comment: Reference Range: 4.3 [...] Mellitus, Diabetes Care 2013; 36: Suppl. 1, N05-62 Estimated Average Glucose 115 mg/dL [facility] Blood 04/18/2023 2:10 AM EST 04/18/2023 2:44 AM EST Narrative Resulting Agency Comment Spec In Lab Lloyd Maloney MD CHEMISTRY ORDERABLES [facility] [address] [place] [address] * Lipid Panel (Reflex Direct LDL) (04/18/2023 2:10 AM EST) Cholesterol, Total 173 mg/dL [facility] Comment: Lower Risk: <200 mg/dL Average Risk: 200-239 mg/dL Higher Risk: >je=755 mg/dL Triglyceride 174 mg/dL [facility] Comment: Average Risk/Lower Risk: <150 mg/dL Borderline High Risk: 150-199 mg/dL High Risk: 200-499 mg/dL Very High Risk: >ho=804 mg/dL HDL Cholesterol 44 mg/dL [facility] Comment: Males: ?? Higher Risk: <40 mg/dL Females: ?? Higher Risk: <50 mg/dL LDL Cholesterol 94 mg/dL [facility] Comment: Lowest Risk: <100 mg/dL Lower Risk: 100-129 mg/dL Borderline High Risk: 130-159 mg/dL High Risk: 160-189 mg/dL Very High Risk: >ip=290 mg/dL Cholesterol/HDL Ratio 3.9 ratio [facility] Lipid Interpretation See Note [facility] Comment: Lipid management should be guided by a patient? s ASCVD risk, goals and preferences. ACC/AHA Guidelines recommend high intensity statin if clinical ASCVD or LDL greater than or equal to 190 mg/dL. http://ADstrucurl.com/GXG-NLW-Gbenqysoj Adults aged 40-75 with LDL 70-189 mg/dL should have their 10 year ASCVD risk estimated with the ACC/AHA ASCVD risk hearings reporter http://tools.acc.org/KMRXI-Rbxv-Uabpykisi/ Statin should be discussed if risk greater [...] CHEMISTRY ORDERABLES Performing Organization Address [facility] [place]/[facility] Co de Phone Number [facility] [place] [address] * POCT Glucose (04/17/2023 7:44 PM EST) Glucose, POC 128 65 - 199 mg/dL [facility] Comment: Supplemental ranges: <140 mg/dL before meals <180 mg/dL all other times of the day Blood 04/17/2023 7:44 PM EST 04/17/2023 7:44 PM EST Ailyn Knight MD POINT OF CARE TEST O RDERABLES Performing Organization Address [facility] Co de Phone Number [facility] [place] [address] * (ABNORMAL) Heparin (unfractionated) Level (04/17/2023 6:01 PM EST) UF Heparin 1.14(Crit ical) IU/mL [facility] Comment: Critical Result called [...] ORDERABLE S Performing Organization Address [facility] [place]/[facility] Co de Phone Number [facility] [place] [address] * (ABNORMAL) Heparin (unfractionated) Level (04/17/2023 12:45 PM EST) UF Heparin 1.39(Crit ical) IU/mL [facility] Comment: Critical Result called by [...] ORDERABLE S Performing Organization Address [facility]/ZIP Co de Phone Number [facility] [place] [address] * ECHO LMTD W CONTRAST W LMTD SPEC DOPP COLOR DOPP (04/17/2023 11:59 AM EST) EF 58 HEART[facility] SYSTEM Anatomical Region Laterality Modality Cardiac Other 04/17/2023 10:2 4 AM EST Narrative 04/17/2023 12:[address] [address] ? Echocardiogram Report Name: LOIDA MADRIGAL ? Study Date: 04/17/2023 10:24 AMBP: 114/64 mmHg ? Patient Location: : 1970 ? Height: 160 cm ? Account: [id number] Age: 53 yrs ? Weight: 98 kg Gender: Female ?BSA: 2.0 m2 Ordering Physician: LLOYD MALONEY Referring Physician: LLOYD MALONEY Performed By: HAIM Becerra Reason For Study: Chest pain; NSTEMI Exam Location: [facility]. Interpretation Summary Left ventricle is normal in size and wall thickness. Normal global systolic function with regional wall motion abnormalities as ascribed on the anterior/anterolateral aspect. Right ventricle is normal in size and systolic function. No significant cardiac valve findings. No pericardial effusion. Compared to prior study dated 02/09/2023, the extent of the anterior abnormal wall motion has increased. Procedure Limited - [id number]. Image enhancement Optison was used for left [...] Note Jaspreet Kinsey MD - 04/17/2023 [address] [place] [address] Echocardiogram Report Name: LOIDA MADRIGAL Study Date: 0:24 AMBP: 114/64 mmHg Patient Location: : 1970 Height: 160 cm Account: [id number] Age: 53 yrs Weight: 98 kg Gender: Female BSA: 2.0 m2 Ordering Physician: LLOYD MALONEY Referring Physician: LLOYD MALONEY Performed By: HAIM Becerra Reason For Study: Chest pain; NSTEMI Exam Location: [facility]. Interpretation Summary Left ventricle is normal in size and wall thickness. Normal globalsystolic function with regional wall motion abnormalities as ascribed on the anterior/anterolateral aspect. Right ventricle is normal in size and systolic function. No significant cardiac valve findings. No pericardial effusion. Compared to prior study dated 02/09/2023, the extent of the anteriorabnormal wall motion has increased. Procedure Limited - [id number]. Image enhancement Optison was used for left [...] Heparin (unfractionated) Level (04/17/2023 6:43 AM EST) [facility] UF Heparin 1.41(Crit ical) IU/mL [facility] Comment: Critical Result called [...] Lab Lloyd Maloney MD HEMATOLOGY ORDERABLE S [facility] [place] [place] [address] * (ABNORMAL) Troponin (04/17/2023 6:43 AM EST) Troponin-T, High Sensitivity 23(H) <=14 ng/L [facility] Comment: This patient's troponin [...] Medical Center Laboratory Test Catalog Reference: Fourth [place] Definition of Myocardial Infarction. Journal of the [place] [employer] 2018;72:5367-6616 Blood 04/17/2023 6:43 AM EST 04/17/2023 6:52 AM EST Narrative Resulting Agency Comment Spec In Lab Lloyd Maloney MD CHEMISTRY ORDERABLES Performing Organization Address City/State/[facility] Co de Phone Number [facility] [place] [address] * EKG 12 Lead (04/17/2023 3:41 AM EST) Ventricular rate 47 BPM MUSE SYSTEM Atrial Rate 47 BPM MUSE SYSTEM P-R Interval 186 ms MUSE SYSTEM QRS Duration 90 ms MUSE SYSTEM Q-T Interval 578 ms MUSE SYSTEM QTC Calculated (Bezet) 511 ms MUSE SYSTEM Calculated P Hunt[place] 24 degrees MUSE SYSTEM Calculated R [place] 23 degrees MUSE SYSTEM Calculated T Huntley 27 degrees MUSE SYSTEM INTERPRETATION Sinus bradycardia with Premature atrial complexes Possible Left atrial enlargement Possible Lateral infarct , age undetermined Prolonged QT Abnormal ECG When compared with ECG of 01-APR-2023 12:28, Premature atrial complexes are now Present Vent. rate has decreased BY ??33 BPM Nonspecific T wave abnormality, improved in Anterior leads Confirmed by MD Angelo Danette ([id number]) on 04/20/2023 8:28:40 PM MUSE SYSTEM 04/17/2023 3:41 AM EST 04/20/2023 8:28 PM EST Lloyd Maloney MD ECG ORDERABLES MUSE SYSTEM * Differential, Automated (04/17/2023 3:33 AM EST) Neutrophil % 54.4 % [facility] Neutrophil Absolute 4.02 1.70 - 6.10 x10(3)/[facility] Lymph % 32.0 % [facility] Lymphocytes Abs 2.4 0.9 - 3.2 x10(3)/[facility]OR[facility] Monocyte % 8.7 % [facility] Monocyte Abs 0.6 0.3 - 0.9 x10(3)/[facility] Eos % 3.9 % [facility] Eosinophils Abs 0.3 0.0 - 0.4 x10(3)/[facility] Basophil % 0.7 % [facility] Baso Absolute 0.0 0.0 - 0.1 x10(3)/[facility] LABOR[facility] Immature Gran % 0.30 % [facility] Comment: Immature granulocytes(IG's)percentage and absolute count will include metamyelocytes, myelocytes, and promyelocytes. Blood smears from CBCs yielding IG's will be scanned manually for concordance. If this scan disagrees with the automated IG or if promyelocytes are noted, a manual differential will be performed. Immature Gran Absolute 0.02 0.00 - 0.04 x10(3)/[facility] Blood 04/17/2023 3:33 AM EST 04/17/2023 3:42 AM EST Narrative Resulting Agency Comment Spec In Lab Lloyd Maloney MD HEMATOLOGY ORDERABLE S [facility] [place] [address] * Hemogram (04/17/2023 3:33 AM EST) White Blood Cell 7.4 4.0 - 9.5 x10(3)/[facility] Red Blood Cell 4.79 4.00 - 5.21 x10(6)/[facility] Hemoglobin 14.8 11.7 - 15.5 g/dL [facility] Hematocrit 44.3 35.7 - 45.8 % [facility] Mean Cell Volume 92.5 82.6 - 94.4 fL [facility] Mean Cell Hemoglobin 30.9 27.1 - 32.0 pg [facility] Mean Cell Hemoglobin Concentration 33.4 31.7 - 35.0 g/dL [facility] Platelet 233 145 - 357 x10(3)/[facility] RDW Standard Deviation 43.4 37.0 - 46.0 fL [facility] RDW coefficient of variation 12.7 11.5 - 14.1 % [facility] Mean Platelet Volume 11.0 7.6 - 12.9 fL [facility] NRBC% auto 0.0 % [facility] NRBC Absolute 0.000 0.000 - 0.000 x10(3)/[facility] Blood 04/17/2023 3:33 AM EST 04/17/2023 3:42 AM EST Narrative Resulting Agency Comment Spec In Lab Lloyd Maloney MD HEMATOLOGY ORDERABLE S [facility] [place] [address] * Sedimentation rate (04/17/2023 3:33 AM EST) Sedimentation Rate Automated 12 2 - 39 mm/hr [facility] Comment: Effective February 15, 2019 new capillary photometric technology has resulted in a change in reference ranges. It is recommended that each ESR result be reviewed with its own age appropriate reference range. Blood 04/17/2023 3:33 AM EST 04/17/2023 3:42 AM EST Narrative Resulting Agency Comment Spec In Lab Lloyd Maloney MD HEMATOLOGY ORDERABLE S Performing Organization Address City/[facility] [place] [address] * CRP, acute inflammation (04/17/2023 3:33 AM EST) C-Reactive Protein <3.0 <=4.9 mg/L [facility] Blood 04/17/2023 3:33 AM EST 04/17/2023 3:42 AM EST Narrative Resulting Agency Comment Spec In Lab Lloyd Maloney MD CHEMISTRY ORDERABLES Performing Organization Address [facility] [place]/[facility] Co de Phone Number [facility] [place] [address] * (ABNORMAL) Troponin (04/17/2023 3:33 AM EST) Troponin-T, High Sensitivity 24(H) <=14 ng/L [facility] Comment: This patient's troponin [...] Medical Center Laboratory Test Catalog Reference: Fourth [place] Definition of Myocardial Infarction. Journal of the [place] College [employer]iology 2018;72:[id number] Blood 04/17/2023 3:33 AM EST 04/17/2023 3:42 AM EST Narrative Resulting Agency Comment Spec In Lab Lloyd Maloney MD CHEMISTRY ORDERABLES [facility] [place] [address] * (ABNORMAL) APTT (04/17/2023 3:33 AM EST) Partial Thromboplastin Time 40(H) 25 - 37 sec [facility] Comment: The PTT is NOT appropriate for heparin monitoring. Use the Anti-Xa level for heparin monitoring (HEP UFH) or LMWH monitoring (HEP LMW). A PTT less than 37 seconds generally indicates adequate hemostasis. Blood 04/17/2023 3:33 AM EST 04/17/2023 3:42 AM EST Narrative Resulting Agency Comment Spec In Lab Lloyd Maloney MD HEMATOLOGY ORDERABLE S Performing Organization Address [facility] [place]/[facility] Co de Phone Number [facility] [place] [address] * (ABNORMAL) Prothrombin Time (04/17/2023 3:33 AM EST) Prothrombin Time 13.3(H) 9.4 - 12.5 sec [facility] International Normalization Ratio 1.2 [facility] Comment: An INR <2.0 [...] MD HEMATOLOGY ORDERABLE S Performing Organization Address City/[facility] [place]/ZIP Co de Phone Number [facility] [place] [address] * Hepatic Function Panel (04/17/2023 3:33 AM EST) Protein, Total 6.9 6.1 - 8.0 g/dL [facility] Albumin 4.2 3.2 - 5.2 g/dL [facility] Aspartate Aminotransferase Not Perf 0 - 30 [facility] Comment: Unable to quantitate due to sample hemolysis. ??Sample redraw suggested. Called by: Danny Bowles, Read back by: Nyla Cassidy, Date/Time:04/17/23 05:06. Alanine Aminotransferase 17 0 - 30 unit/L [facility] Alkaline Phosphatase 59 35 - 105 unit/L [facility] Bilirubin, Total 0.4 0.2 - 1.3 mg/dL [facility] Bilirubin, Direct 0.1 0.0 - 0.3 mg/dL [facility] Blood 04/17/2023 3:33 AM EST 04/17/2023 3:42 AM EST Narrative Resulting Agency Comment Spec In Lab Lloyd Maloney MD CHEMISTRY ORDERABLES Performing Organization Address City/[facility] [place]/ZIP Co de Phone Number [facility] [place] [address] * (ABNORMAL) pro-Brain Natriuretic Peptide (04/17/2023 3:33 AM EST) Pathologist [facility] NT-proBNP 867(H) <=124 pg/mL [facility] Blood 04/17/2023 3:33 AM EST 04/17/2023 3:42 AM EST Narrative Resulting Agency Comment Spec In Lab Lloyd Maloney MD CHEMISTRY ORDERABLES Performing Organization Address City/[facility] [place]/ZIP Co de Phone Number [facility] [place] [address] * (ABNORMAL) TSH (04/17/2023 3:33 AM EST) Pathologist [facility] Thyroid Stimulating Hormone 5.93(H) 0.27 - 4.20 mcIU/mL [facility] Comment: Reference Interval (mcIU/mL): Females: ??First Trimester: 0.23-3.88 ??Second Trimester: 0.22-3.90 ??Third Trimester: 0.44-4.66 Blood 04/17/2023 3:33 AM EST 04/17/2023 3:42 AM EST Narrative Resulting Agency Comment Spec In Lab Lolyd Maloney MD CHEMISTRY ORDERABLES Performing Organization Address [facility] de Phone Number [facility] [place] [address] * Phosphorus (04/17/2023 3:33 AM EST) Phosphorus 4.1 2.5 - 4.5 mg/dL [facility] Blood 04/17/2023 3:33 AM EST 04/17/2023 3:42 AM EST Narrative Resulting Agency Comment Spec In Lab Lloyd Maloney MD CHEMISTRY ORDERABLES Performing Organization Address [facility] Phone Number [facility] [place] [address] * Magnesium (04/17/2023 3:33 AM EST) Magnesium 0.99 0.69 - 1.07 mmol/L [facility] Blood 04/17/2023 3:33 AM EST 04/17/2023 3:42 AM EST Narrative Resulting Agency Comment Spec In Lab Lloyd Maloney MD CHEMISTRY ORDERABLES Performing Organization Address [facility] de Phone Number [facility] [place] [address] * (ABNORMAL) Basic Metabolic Panel (non-fasting) (04/17/2023 3:33 AM EST) Glucose 89 65 - 199 mg/dL [facility] Comment:Diabetes: >=200 mg/d L plus symptoms Blood Urea Nitrogen 19(H) 8 - 18 mg/dL [facility] Creatinine 1.19 0.70 - 1.20 mg/dL [facility] Sodium 141 135 - 145 mmol/L [facility] Potassium 4.0 3.5 - 5.0 mmol/L [facility] Comment: Please note: ??Patients with WBC >100,000 may have falsely elevated Potassium levels. ??For accurate Potassium quantification in these patients send serum separator tube (gold top) for subsequent determinations. ??Contact the Clinical Chemistry Laboratory if there are any questions. Chloride 106 98 - 107 mmol/L [facility] Carbon Dioxide 22 22 - 31 mmol/L [facility] Anion Gap 13 5 - 15 mmol/L [facility] Calcium 9.4 8.5 - 10.5 mg/dL [facility] Est Glomerular Filtration Rate 54(L) >=60 mL/min/1. 73 m?? [facility] Comment: This patient's estimated [...] In Lab Lloyd Maloney MD CHEMISTRY ORDERABLES [facility] [place] [address] * Film Library- Storage Only CT Chest [...] Zoila Rooney RN) 923 (Given - Provider: Chian Myers) atorvastatin (Lipitor) tablet 40 mg 40 [...] Rooney RN) 2100 (Given - Provider: Zoila Ronoey RN) pantoprazole EC (Protonix) tablet 40 mg [...] documented as of this encounter Care Teams Farmworker Fur Relationship Specialty Start Date End Date Polo Pearce PA [address] [place] [address] PCP - General Internal Medicine 06/09/21 documented as of this encounter
--- OUTSIDE RECORDS SUMMARY | 2024-01-24 21:12 | XMS_ITS | Encounter Summary ---
[place] [address] Care Team Providers Care Field Application Engineer Name Role Phone Polo Pearce Primary Care Provider [phone] Reason for Visit * Auth/Cert (Routine) Specialty Diagnoses / Procedures Referred By Contac t Referred To Contact Diagnoses NSTEMI (non-ST elevated myocardial infarction) NSTEMI Procedures ER Lloyd Pantoja MD [facility] [place] [address] [facility] Referral ID Status Reason Start Date Expiration Date Visits Re quested Visits Authorized [id number] 1 Encounter Details Date Type Department Care Team (Latest Contact Info) Description 04/17/2023 9:15 AM EST - 04/17/2023 11:59 PM EST Hospital Encounter [place] [address] Discharge Disposition: Home Social History Tobacco Use Types Packs/Day Years Used Date Smoking Tobacco: Never Smokeless Tobacco: Never Alcohol Use Standard Drinks/Week Comments Never 0 (1 standard drink = 0.6 oz pur e alcohol) [facility] Utilities Answer Date Recorded In the past 12 months has [employer], gas, oil, or water company threatened [...] as needed. fluticasone propionate (FLONASE) 50 mcg/actuation [place], Suspension 1 spray by Each Nare route [...] PM EST Office Visit Cardiology at [address] [place] [address] Jaspreet Kinsey MD [facility] [place] [address] documented as of this encounter Procedures Procedure [...] mLs documented in this encounter Care Teams Field Application Engineer Relationship Specialty Start Date End Date Polo Pearce PA [address] [place] [address] PCP - General Internal Medicine 06/09/21 documented as of this encounter
--- OUTSIDE RECORDS SUMMARY | 2024-01-24 21:12 | XMS_ITS | Encounter Summary ---
Author Organization [facility] [place] [address] Care Team Providers Care Skilled Nursing Facilities Professional Name Role Phone Polo Pearce Primary Care Provider [phone] Reason for Visit * Reason Onset Date Comments Pre Procedure Call 03/16/2023 Encounter Details Date Type Department Care Team (Late st Contact Info) Description 03/16/2023 Telephone Cardiology at [address] [address] Mary Motta RN Pre Procedure Call Social History Tobacco Use Types Packs/Day Years Used Date Smoking Tobacco: Never Smokeless Tobacco: Never Alcohol Use Standard Drinks/Week Comments Never 0 (1 standard drink = 0.6 oz pur e alcohol) [facility] Utilities Answer Date Recorded In the past 12 months has [employer], gas, oil, or water [employer] threatened to shut off services in your [...] ESTSummary: Pre Procedure Call: SVT Ablation EP COMPUTER APPLICATIONS ENGINEER COORDINATION CHECKLIST Patient Name: Indira Roque Patient Performing Highway Commissioner: Jed Tovar Referring Provider: Jaspreet Kinsey Date of Procedure: 04/01/23 Arrival Time/ Case Time: 6:00 am / 7:30 am Check In Location: Safety Risk Lead Desk 4W Date Patient was Called: 04/01/23 Procedure: SVT Ablation Company: [employer] Type: RF Orders: Yes Lab Orders: Yes [...] overnight , understands that they will need emergency detail driver on day of discharge Notified pt that Esqueda catheter may be placed on day of procedure depending on type & duration of case. documented in this encounter Plan of Treatment Upcoming Encounters Date Type Department Care Team (Late st Contact Info) Description 02/10/2024 1:00 PM EST Office Visit Cardiology at [address] [place] [address] Jaspreet Kinsey MD [facility] [place] [place] [address] documented as of this encounter Visit Diagnoses Not on filedocumented in this encounter Care Teams Skilled Nursing Facilities Professional Relationship Specialty Start Date End Date Polo Pearce PA [address] [address] PCP - General Internal Medicine 06/09/21 documented as of this encounter
--- OUTSIDE RECORDS SUMMARY | 2024-01-24 21:12 | XMS_ITS | Encounter Summary ---
Author Organization [facility] Address [facility] [place] [address] Care Team Providers Care Process Design Engineer Name Role Phone Polo Pearce Primary Care Provider [phone] Encounter Details Date Type Department Care Team (Late st Contact Info) Description 04/16/2023 Ancillary Procedure Radiology Library at [facility] [place] [address] Social History Tobacco Use Types Packs/Day Years Used Date Smoking Tobacco: Never Smokeless Tobacco: Never Alcohol Use Standard Drinks/Week Comments Never 0 (1 standard drink = 0.6 oz pur e alcohol) [facility] Utilities Answer Date Recorded In the past 12 months has e [employer], gas, oil, or water [employer] threatened to shut off services in your [...] in a chcf (including now)? No 02/10/2023 DH IPV Inpatient [...] PM EST Office Visit Cardiology at [address] [place] [address] Jaspreet Kinsey MD [facility] [place] [address] documented as of this encounter Procedures Procedure [...] on filedocumented in this encounter Care Teams Process Design Engineer Relationship Specialty Start Date End Date Polo Pearce PA [address] [place] [id number] PCP - General Internal Medicine 06/09/21 documented as of this encounter
--- OUTSIDE RECORDS SUMMARY | 2024-01-24 21:12 | XMS_ITS | Encounter Summary ---
[place] [address] Care Team Providers Care Earthmoving Plant Operator Name Role Phone Polo Pearce Primary Care Provider [phone] Reason for Visit * Auth/Cert (Routine) Specialty [...] Tovar MD [facility] [place] [address] [facility] Referral ID Status Reason Start Date Expiration Date Visits Re quested Visits Authorized [id number] 1 1 Encounter Details Date Type Department Care Team (Late st Contact Info) Description 04/01/2023 7:30 AM EST - 04/01/2023 12:00 PM EST Surgery Electrophys[place] [phone] Jed Tovar MD [facility] [place] [address] ELECTROPHYSIOLOGY PROCEDURE Social History Tobacco Use Types [...] Indira Roque Patient Age: 53 y.o. Language: Bulgarian [...] Cardiac Electrophysiology - Weekends and holidays call [phone]; ask for kennel technician higher education administrator. Discharge Diagnoses (Hospital Problems) and Secondary Diagnoses [...] 3:00 PM Jaspreet Kinsey MD Cardiology at [place] Arrive at: [facility] [address] [phone] Discharge References/Attachments None documented in this encounter [...] PRE-PROCEDURE H&P Referring Provider: Jaspreet Kinsey MD [facility] [place] [address] Attending Provider: Jed Tovar MD Planned Procedure: [...] in agreement. Dr. Jed Tovar, electrophysiology attending ([id number]) documented in this encounter Procedure Notes * [...] jittery Break coverage by Luiza Peña RN [phone]. PACU D/C criteria met at 1300 1345 Hand off to ERWIN Gomez SDP documented in this encounter Miscellaneous Notes * Brief Op Note - Jed Tovar MD - 04/01/2023 11:07 AM EST Brief Operative Note Patient Name: Indira Roque : [id number] MR#: [id number] Case Date: 04/01/2023 Surgeon: Surgeon(s) and Role: [...] PM EST Office Visit Cardiology at [address] [place] [address] Jaspreet Kinsey MD [facility] [place] [address] documented as of this encounter Procedures Procedure [...] (Bezet) 519 ms MUSE SYSTEM Calculated P [place] 44 degrees MUSE SYSTEM Calculated R [place] 41 degrees MUSE SYSTEM Calculated T [place] 36 degrees MUSE SYSTEM INTERPRETATION Normal sinus [...] not included. ELECTROPHYSIOLOGY STUDY AND SVT ABLATION Filtering Machine Tender: Jed Tovar MD Fellow: Jaspreet Grimm MD [...] Intervals (ms) Interval Name Interval length (milliseconds) VA 260 QRS 97 QT 531 AH 159 HV 47 Refractory Periods Atrial ERP 700/300 AV Makayla Conduction AV Wenckebach 360 ms Retrograde Wenckebach 470 ms Medication Summary (drug, amount, route) Isoproterenol at 2-4 mcg/kg/min Radiology Summary Total Fluoro time (min) 1.4 DAP (cGycm2) 53 Findings: 1. The baseline EKG revealed sinus rhythm with prolonged VA and long AH, but otherwise normal intervals [...] with Dr. Tovar in 1-3 ??months at [facility] 5. 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 Procedures performed: SVT ablation (cpt 80653); induce post IV drug (cpt 90902-22-15) I have read, edited and approve of [...] (Bezet) 522 ms MUSE SYSTEM Calculated P [place] 50 degrees MUSE SYSTEM Calculated R [place] 69 degrees MUSE SYSTEM Calculated T [place] 16 degrees MUSE SYSTEM INTERPRETATION Sinus bradycardia Lateral infarct , age undetermined Prolonged QT Abnormal ECG When compared with ECG of 22-MAR-2023 16:45, (unconfirmed) T wave inversion no longer evident in Anterior leads QT has lengthened I personally reviewed the tracing and edited the fellows interpretation Confirmed by fellow MD Nas, Max ([id number]) on 04/01/2023 3:35:42 PM Confirmed by MD NAILA, KAUSHIK ([id number]) on 04/02/2023 8:28:26 AM MUSE SYSTEM 04/01/2023 7:31 AM EST 04/02/2023 8:28 AM EST Jed Tovar MD ECG ORDERABLES MUSE SYSTEM * Differential, Automated (04/01/2023 7:20 AM EST) Neutrophil % 53.2 % [facility] Neutrophil Absolute 3.51 1.70 - 6.10 x10(3)/[facility] LABORATORY Lymph % 32.4 % [facility] Lymphocytes Abs 2.1 0.9 - 3.2 x10(3)/[facility] LABORATORY Monocyte % 8.7 % [facility] H[facility]P ITAL [facility] Monocyte Abs 0.6 0.3 - 0.9 x10(3)/[facility] LABORATORY Eos % 4.6 % [facility] Eosinophils Abs 0.3 0.0 - 0.4 x10(3)/[facility] LABORATORY Basophil % 0.8 % [facility] ITAL LABORATORY Baso Absolute 0.0 0.0 - 0.1 x10(3)/[facility] LABORATORY Immature Gran % 0.30 % [facility] Comment: Immature granulocytes(IG's)percentage and absolute count will include metamyelocytes, myelocytes, and promyelocytes. Blood smears from CBCs yielding IG's will be scanned manually for concordance. If this scan disagrees with the automated IG or if promyelocytes are noted, a manual differential will be performed. Immature Gran Absolute 0.02 0.00 - 0.04 x10(3)/[facility] LABORATORY Blood 04/01/2023 7:20 AM EST 04/01/2023 7:33 AM EST Narrative Resulting Agency Comment Spec In Lab Jed Tovar MD HEMATOLOGY ORDERABLE S Performing Organization Address City/State/[facility] Co de Phone Number [facility] [place] [address] * (ABNORMAL) Hemogram (04/01/2023 7:20 AM EST) White Blood Cell 6.6 4.0 - 9.5 x10(3)/mc L [facility] Red Blood Cell 4.56 4.00 - 5.21 x10(6)/mc L [facility] Hemoglobin 14.1 11.7 - 15.5 g/dL [facility] Hematocrit 43.1 35.7 - 45.8 % [facility] Mean Cell Volume 94.5(H) 82.6 - 94.4 fL [facility] Mean Cell Hemoglobin 30.9 27.1 - 32.0 pg [facility] Mean Cell Hemoglobin Concentration 32.7 31.7 - 35.0 g/dL [facility] Platelet 229 145 - 357 x10(3)/mc L [facility] RDW Standard Deviation 44.7 37.0 - 46.0 fL [facility] RDW coefficient of variation 12.7 11.5 - 14.1 % [facility] Mean Platelet Volume 11.7 7.6 - 12.9 fL [facility] NRBC% auto 0.0 % [facility] ITAL LABORATORY NRBC Absolute 0.000 0.000 - 0.000 x10(3)/mc L [facility] Blood 04/01/2023 7:20 AM EST 04/01/2023 7:33 AM EST Narrative Resulting Agency Comment Spec In Lab Jed Tovar MD HEMATOLOGY ORDERABLE S [facility] [place] [address] * (ABNORMAL) BMP w/fasting Glucose (04/01/2023 7:20 AM EST) Glucose Fasting 99 65 - 99 mg/dL [facility] Comment: ?Fasting* Glucose Interpretive [...] of Diabetes Mellitus, Position Statement from the [place] [employer]. ??Diabetes Care, Volume 33, Supplement 1, Mar 2009 Blood Urea Nitrogen 22(H) 8 - 18 mg/dL [facility] Creatinine 1.10 0.70 - 1.20 mg/dL [facility] Sodium 139 135 - 145 mmol/L [facility] Potassium 4.2 3.5 - 5.0 mmol/L [facility] Comment: Please note: ??Patients with WBC >100,000 may have falsely elevated Potassium levels. ??For accurate Potassium quantification in these patients send serum separator tube (gold top) for subsequent determinations. ??Contact the Clinical Chemistry Laboratory if there are any questions. Chloride 108(H) 98 - 107 mmol/L [facility] Carbon Dioxide 22 22 - 31 mmol/L [facility] Anion Gap 9 5 - 15 mmol/L [facility] Calcium 9.6 8.5 - 10.5 mg/dL [facility] Est Glomerular Filtration Rate 60 >=60 mL/min/1. 73 m?? [facility] Comment: This patient's estimated [...] In Lab Jed Tovar MD CHEMISTRY ORDERABLES [facility] [place] [address] documented in this encounter Visit Diagnoses Diagnosis [...] Routine documented in this encounter Care Teams Earthmoving Plant Operator Relationship Specialty Start Date End Date Polo Pearce PA [address] [place] [address] PCP - General Internal Medicine 06/09/21 documented as of this encounter
--- OUTSIDE RECORDS SUMMARY | 2024-01-24 21:12 | XMS_ITS | Encounter Summary ---
Author Organization [facility] [place] [address] Care Team Providers Care Marketing Sales Supervisor Name Role Phone Polo Pearce Primary Care Provider [phone] Encounter Details Date Type Department Care Team (Late st Contact Info) Description 04/16/2023 External [place] [address] Social History Tobacco Use Types Packs/Day Years [...] PM EST Office Visit Cardiology at [address] [place] [address] Jaspreet Kinsey MD [facility] [place] [address] documented as of this encounter Procedures Procedure Name Priority Date/Time Associated Diagnosis Comments ECG SCAN Routine 04/16/2023 6:11 PM EST documented in this encounter Results * Scan Doc: ECG (04/16/2023 6:11 PM EST) Historical Provider MD FLEMING MGR SCAN EX T ORDR/RSLT documented in this encounter Visit Diagnoses Not on filedocumented in this encounter Care Teams Marketing Sales Supervisor Relationship Specialty Start Date End Date Polo Pearce PA Sb [address] [place] [id number] PCP - General Internal Medicine 06/09/21 documented as of this encounter
--- OUTSIDE RECORDS SUMMARY | 2024-01-24 21:12 | XMS_ITS | Encounter Summary ---
Author Organization [facility] Address [facility] [place] [address] Care Team Providers Care Business Analyst Project Manager Name Role Phone Polo Pearce Primary Care Provider [phone] Reason for Visit * Reason Comments Palpitations SVT Encounter Details Date Type Department Care Team (Late st Contact Info) Description 03/22/2023 4:20 PM EST Office Visit Cardiology at [address] [address] Jaspreet Kinsey MD [facility] [place] [address] SVT (supraventricular tachycardia); Pulmonary embolism without acute [...] in early February; she was [place] [facility]. At that interface, amlodipine was discontinued due to mild peripheral edema, and bumex was changed to torsemide ( the latter for unclear reason). Ranexa was also initiated, as was aldactone; the latter to preserve eukalemia. The former was discontinued due to fogginess/dizziness, with quick resolution of symptoms. Since then, she has been doing well. She has been participating in cardiac rehab at [facility] and finds herself making gains in [...] 30 DAYS fluticasone propionate (FLONASE) 50 mcg/actuation [place], Suspension 1 spray, Each Nare, DAILY gabapentin [...] Started on eliquis 08/2022 TTE ([facility]): normal bi-v s/f. No significant VHD (HFpEF) heart failure with preserved ejection fraction 05/2021: subacute, presented to [facility] with RUQ pain, weight [...] PM EST Office Visit Cardiology at [address] [place] [phone] Jaspreet Kinsey MD [facility] [place] [address] documented as of this encounter Visit Diagnoses Diagnosis SVT (supraventricular tachycardia) Other specified cardiac dysrhythmias Pulmonary embolism without acute cor pulmonale, unspecified chronicity, unspecified pulmonary embolism type Paroxysmal atrial fibrillation Atrial fibrillation Heart failure with preserved ejection fraction, unspecified HF chronicity documented in this encounter Care Teams Business Analyst Project Manager Relationship Specialty Start Date End Date Polo Pearce PA [address] [place] [address] PCP - General Internal Medicine 06/09/21 documented as of this encounter
--- OUTSIDE RECORDS SUMMARY | 2024-01-24 21:12 | XMS_ITS | Encounter Summary ---
[place] [address] Care Team Providers Care Property Specialist Name Role Phone Polo Pearce Primary Care Provider [phone] Reason for Visit * Auth/Cert (Routine) Specialty [...] PROCEDURE Jed Tovar MD [facility] [place] [address] [facility] Referral ID Status Reason Start Date Expiration Date Visits Re quested Visits Authorized [id number] 1 1 Encounter Details Date Type Department Care Team (Late st Contact Info) Description 04/01/2023 7:39 AM EST Anesthesia Event [place] [address] Merlin Lozoya MD [facility] [place] [address] Anesthesia Record Procedure Summary Procedure [...] Time: 1119 04/01/23 0750 by Jaspreet Perry, FEEDER LOADER 04/01/23 1119 by Merlin Lozoya MD PIV 04/01/23; 0754; 18 gauge; dorsal arch vein (top of hand), right; Anatomical Landmarks; tanja; no longer indicated; 04/01/23; 1551 04/01/23 0754 by Jaspreet Perry, FEEDER LOADER 04/01/23 1551 by Gianna Bland RN LDA Cath/EP Sheath 04/01/23; 0823; 6.5 Algerian (Fr); Left, Anterior; Femoral; Venous 04/01/23 0823 by Mary Herman RN 04/01/23 1056 by Mary Herman RN LDA Cath/EP Sheath 04/01/23; 0825; 6.5 Algerian (Fr); Left, Anterior; Femoral; Venous 04/01/23 0825 by Mary Herman RN 04/01/23 1057 by Mary Herman RN LDA Cath/EP Sheath 04/01/23; 0825; 6.5 Algerian (Fr); Left, Anterior; Femoral; Venous 04/01/23 0825 by Mary Herman RN 04/01/23 1057 by Mary Herman RN LDA Cath/EP Sheath 04/01/23; 0827; 6.5 Algerian (Fr); Right, Anterior; Femoral; Venous 04/01/23 0827 by Mary Herman RN 04/01/23 1057 by Mary Herman RN LDA Cath/EP Sheath 04/01/23; 0833; 5.5 Algerian (Fr); Right, Anterior; Femoral; Venous 04/01/23 0833 [...] / Location: EP B-LAB ROOM 4 / [facility] EP LABS Anesthesia Start: 738 Anesthesia Stop: 113 Procedure: ELECTROPHYSIOLOGY PROCEDURE Diagnosis: SVT (supraventricular tachycardia) (SVT (supraventricular tachycardia) [I47.10]) Providers: Jed Tovar MD Responsible Provider: Merlin Lozoya MD Anesthesia Type: general ASA Status: 3 All Anesthesia Providers: Anesthesiologist: Merlin Lozoya MD FEEDER LOADER: Jaspreet Perry CRNA Vitals Value Taken Time BP 104/58 04/01/23 1345 Temp 36.4 ??C (97.5 ??F) 04/01/23 1315 Pulse 66 04/01/23 1346 Resp 14 04/01/23 1346 SpO2 96 % 04/01/23 1346 Pain Level Vitals shown include unfiled device data. Patient Location: PACU/[facility] Level of Consciousness: Awake and Alert [...] risks discussed with patient. Plan discussed with FEEDER LOADER. Anesthesia Screening documented in this encounter Plan of Treatment Upcoming Encounters Date Type Department Care Team (Late st Contact Info) Description 02/10/2024 1:00 PM EST Office Visit Cardiology at [address] [place] [phone] Jaspreet Kinsey MD [facility] [place] [address] documented as of this encounter Visit Diagnoses [...] mg documented in this encounter Care Teams Property Specialist Relationship Specialty Start Date End Date Polo Pearce PA [address] [place] [address] PCP - General Internal Medicine 06/09/21 documented as of this encounter
--- OUTSIDE RECORDS SUMMARY | 2024-01-24 21:12 | XMS_ITS | Encounter Summary ---
[place] [address] Care Team Providers Care Punchboard Stuffer Name Role Phone Polo Pearce Primary Care Provider [phone] Reason for Visit * Auth/Cert (Routine) Specialty [...] THER/DX INTERVENT ELECTROPHYSIOLOGY PROCEDURE Jed Tovar MD [facility] [place] [address] [facility] [[email or web address]] Referral ID Status Reason Start Date Expiration Date Visits Re quested Visits Authorized [id number] 1 1 Encounter Details Date Type Department Care Team (Latest Contact Info) Description 04/01/2023 6:20 AM EST - 04/01/2023 4:00 PM EST Hospital Encounter [place] [address] eJd Tovar MD [facility] [place] [address] SVT (supraventricular tachycardia); PAF (paroxysmal atrial fibrillation) Discharge Disposition: Home Social History Tobacco Use Types Packs/Day Years Used Date Smoking Tobacco: Never Smokeless Tobacco: Never Alcohol Use Standard Drinks/Week Comments Never 0 (1 standard drink = 0.6 oz pur e alcohol) [facility] Utilities Answer Date Recorded In the past 12 months has th e [employer], gas, oil, or water [employer] threatened to shut off services in your [...] Indira Roque Patient Age: 53 y.o. Language: Setswana Race: White Ethnicity: Not nor Admit date: [...] Cardiac Electrophysiology - Weekends and holidays call [phone]; ask for tug hand floor person. Discharge Diagnoses (Hospital Problems) and Secondary Diagnoses [...] 06/13/2021 in the context of hospitalization at [facility] for NSTEMI. A rapidly [...] days. Refills: 0 fluticasone propionate 50 mcg/actuation [place], Suspension Commonly known as: Flonase 1 [...] 3:00 PM Jaspreet Kinsey MD Cardiology at [place] Arrive at: [facility] [address] [phone] Discharge References/Attachments None documented in this encounter [...] as needed. fluticasone propionate (FLONASE) 50 mcg/actuation [place], Suspension 1 spray by Each Nare [...] PRE-PROCEDURE H&P Referring Provider: Jaspreet Kinsey [place] [address] Attending Provider: Jed Tovar MD Planned Procedure: EP study and SVT ablation Background and rationale for the procedure: Indira Roque is a 53 y.o. woman with paroxysmal atrial fibrillation, heart failure with preserved EF, and chronic angina with non-obstructive ASCVD but significant calcifications per coronary CTA. She has documented sustained narrow complex tachycardia on 06/13/2021 in the context of hospitalization at [facility] for NSTEMI. A rapidly [...] as needed. fluticasone propionate (FLONASE) 50 mcg/actuation [place], Suspension 1 spray by Each Nare [...] in agreement. Dr. Jed Tovar, electrophysiology attending ([id number]) documented in this encounter Procedure Notes * [...] jittery Break coverage by Luiza Peña RN [phone]. PACU D/C criteria met at 1300 1345 Hand off to ERWIN GomezP documented in this encounter Miscellaneous Notes * Brief Op Note - Jed Tovar MD - 04/01/2023 11:07 AM EST Brief Operative Note Patient Name: Indira Roque : [id number] MR#: [id number] Case Date: 04/01/2023 Surgeon: Surgeon(s) and Role: [...] PM EST Office Visit Cardiology at [address] [address] Jaspreet Kinsey MD [facility] [address] documented as of this encounter Procedures Procedure [...] (Bezet) 519 ms MUSE SYSTEM Calculated P Chana 44 degrees MUSE SYSTEM Calculated R Chana 41 degrees MUSE SYSTEM Calculated T Chana 36 degrees MUSE SYSTEM INTERPRETATION Normal sinus [...] not included. ELECTROPHYSIOLOGY STUDY AND SVT ABLATION Softball Player: Jed Tovar MD Fellow: Jaspreet Grimm MD Referring: Jaspreet Kinsey MD Patient History: Indira Roque is a 53 y.o. woman with one episode of paroxysmal atrial fibrillation, heart failure with preserved EF, and chronic angina with non-obstructive ASCVD but significant calcifications per coronary CTA. She has documented sustained narrow complex tachycardia on 06/13/2021 in the context of hospitalization at [facility] for NSTEMI. A rapidly [...] Intervals (ms) Interval Name Interval length (milliseconds) ME 260 QRS 97 QT 531 AH 159 HV 47 Refractory Periods Atrial ERP 700/300 AV Makayla Conduction AV Wenckebach 360 ms Retrograde Wenckebach 470 ms Medication Summary (drug, amount, route) Isoproterenol at 2-4 mcg/kg/min Radiology Summary Total Fluoro time (min) 1.4 DAP (cGycm2) 53 Findings: 1. The baseline EKG revealed sinus rhythm with prolonged ME and long AH, but otherwise normal intervals [...] with Dr. Tovar in 1-3 ??months at [facility] 5. 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 Procedures performed: SVT ablation (cpt 95711); induce post IV drug (cpt 30161-95-39) I have read, edited and approve of this report: Jed Tovar MD S Cardiac Electrophysiology 04/03/2023 11:10 AM Jed Tovar MD EP PROCEDURE ORDERAB LES * EKG 12 Lead (04/01/2023 7:31 AM EST) Pathologist [facility] Ventricular rate 59 BPM MUSE SYSTEM Atrial Rate 59 BPM MUSE SYSTEM P-R Interval 190 ms MUSE SYSTEM QRS Duration 84 ms MUSE SYSTEM Q-T Interval 528 ms MUSE SYSTEM QTC Calculated (Bezet) 522 ms MUSE SYSTEM Calculated P Chana 50 degrees MUSE SYSTEM Calculated R Chana 69 degrees MUSE SYSTEM Calculated T Chana 16 degrees MUSE SYSTEM INTERPRETATION Sinus bradycardia Lateral infarct , age undetermined Prolonged QT Abnormal ECG When compared with ECG of 22-MAR-2023 16:45, (unconfirmed) T wave inversion no longer evident in Anterior leads QT has lengthened I personally reviewed the tracing and edited the fellows interpretation Confirmed by fellow MD Nas, Max ([id number]) on 04/01/2023 3:35:42 PM Confirmed by MD NAILA, KAUSHIK ([id number]) on 04/02/2023 8:28:26 AM MUSE SYSTEM 04/01/2023 7:31 AM EST 04/02/2023 8:28 AM EST Jed Tovar MD ECG ORDERABLES MUSE SYSTEM * Differential, Automated (04/01/2023 7:20 AM EST) Pathologist [facility] Neutrophil % 53.2 % [facility] Neutrophil Absolute 3.51 1.70 - 6.10 x10(3)/[facility] Lymph % 32.4 % [facility] Lymphocytes Abs 2.1 0.9 - 3.2 x10(3)/[facility] Monocyte % 8.7 % [facility] Monocyte Abs 0.6 0.3 - 0.9 x10(3)/[facility] Eos % 4.6 % [facility] Eosinophils Abs 0.3 0.0 - 0.4 x10(3)/[facility] Basophil % 0.8 % [facility] Baso Absolute 0.0 0.0 - 0.1 x10(3)/[facility] Immature Gran % 0.30 % [facility] Comment: Immature granulocytes(IG's)percentage and absolute count will include metamyelocytes, myelocytes, and promyelocytes. Blood smears from CBCs yielding IG's will be scanned manually for concordance. If this scan disagrees with the automated IG or if promyelocytes are noted, a manual differential will be performed. Immature Gran Absolute 0.02 0.00 - 0.04 x10(3)/[facility] Blood 04/01/2023 7:20 AM EST 04/01/2023 7:33 AM EST Narrative Resulting Agency Comment Spec In Lab Jed Tovar MD HEMATOLOGY ORDERABLE S Performing Organization Address City/State/[facility] Co de Phone Number [facility] [place] [address] * (ABNORMAL) Hemogram (04/01/2023 7:20 AM EST) White Blood Cell 6.6 4.0 - 9.5 x10(3)/mc L [facility] Red Blood Cell 4.56 4.00 - 5.21 x10(6)/mc L [facility] Hemoglobin 14.1 11.7 - 15.5 g/dL [facility] Hematocrit 43.1 35.7 - 45.8 % [facility] Mean Cell Volume 94.5(H) 82.6 - 94.4 fL [facility] Mean Cell Hemoglobin 30.9 27.1 - 32.0 pg [facility] Mean Cell Hemoglobin Concentration 32.7 31.7 - 35.0 g/dL [facility] Platelet 229 145 - 357 x10(3)/mc L [facility] RDW Standard Deviation 44.7 37.0 - 46.0 fL [facility] RDW coefficient of variation 12.7 11.5 - 14.1 % [facility] Mean Platelet Volume 11.7 7.6 - 12.9 fL [facility] NRBC% auto 0.0 % [facility] NRBC Absolute 0.000 0.000 - 0.000 x10(3)/mc L [facility] Blood 04/01/2023 7:20 AM EST 04/01/2023 7:33 AM EST Narrative Resulting Agency Comment Spec In Lab Jed Tovar MD HEMATOLOGY ORDERABLE S [facility] [place] [address] * (ABNORMAL) BMP w/fasting Glucose (04/01/2023 7:20 AM EST) Glucose Fasting 99 65 - 99 mg/dL [facility] Comment: ?Fasting* Glucose Interpretive Criteria [...] of Diabetes Mellitus, Position Statement from the [place] [employer]. ??Diabetes Care, Volume 33, Supplement 1, Mar 2009 Blood Urea Nitrogen 22(H) 8 - 18 mg/dL [facility] Creatinine 1.10 0.70 - 1.20 mg/dL [facility] Sodium 139 135 - 145 mmol/L [facility] Potassium 4.2 3.5 - 5.0 mmol/L [facility] Comment: Please note: ??Patients with WBC >100,000 may have falsely elevated Potassium levels. ??For accurate Potassium quantification in these patients send serum separator tube (gold top) for subsequent determinations. ??Contact the Clinical Chemistry Laboratory if there are any questions. Chloride 108(H) 98 - 107 mmol/L [facility] Carbon Dioxide 22 22 - 31 mmol/L [facility] Anion Gap 9 5 - 15 mmol/L [facility] Calcium 9.6 8.5 - 10.5 mg/dL [facility] Est Glomerular Filtration Rate 60 >=60 mL/min/1. 73 m?? [facility] Comment: This patient's estimated GFR [...] Tovar MD CHEMISTRY ORDERABLES Performing Organization Address City/State/[facility] Co de Phone Number [facility] [place] [address] documented in this encounter Visit Diagnoses Diagnosis [...] Routine documented in this encounter Care Teams Punchboard Stuffer Relationship Specialty Start Date End Date Polo Pearce PA [address] [place] [address] PCP - General Internal Medicine 06/09/21 documented as of this encounter
--- OUTSIDE RECORDS SUMMARY | 2024-01-24 21:12 | XMS_ITS | Encounter Summary ---
Author Organization [facility] [place] [address] Care Team Providers Care Public Health Outreach Worker Name Role Phone Polo Pearce Primary Care Provider [phone] Encounter Details Date Type Department Care Team (Late st Contact Info) Description 04/16/2023 Telephone Cardiology at [address] [address] Vaishnavi Pratt MD [facility] [place] [address] Social History Tobacco Use Types Packs/Day Years Used Date Smoking Tobacco: Never Smokeless Tobacco: Never Alcohol Use Standard Drinks/Week Comments Never 0 (1 standard drink = 0.6 oz pur e alcohol) [facility] Utilities Answer Date Recorded In the past 12 months has [employer], gas, oil, or water [employer] threatened to shut off services in your [...] PM EST Office Visit Cardiology at [address] [phone] Jaspreet Kinsey MD [facility] [place] [address] documented as of this encounter Visit Diagnoses [...] documented as of this encounter Care Teams Public Health Outreach Worker Relationship Specialty Start Date End Date Polo Pearce PA [address] [place] [address] PCP - General Internal Medicine 06/09/21 documented as of this encounter
--- OUTSIDE RECORDS SUMMARY | 2024-01-24 21:12 | XMS_ITS | Encounter Summary ---
Author Organization [facility] [place] [address] Care Team Providers Care Timber Cruiser Name Role Phone Polo Pearce Primary Care Provider [phone] Reason for Visit * Reason Onset Date Comments Follow-up 04/08/2023 Encounter Details Date Type Department Care Team (Late st Contact Info) Description 04/08/2023 Telephone Cardiology at [address] [phone] Mary Motta, RN Follow-up Social History Tobacco Use Types Packs/Day Years Used Date Smoking Tobacco: Never Smokeless Tobacco: Never Alcohol Use Standard Drinks/Week Comments Never 0 (1 standard drink = 0.6 oz pur e alcohol) [facility] Utilities Answer Date Recorded In the past 12 months has [employer], gas, oil, or water [employer] threatened to shut off services in your [...] PM EST Office Visit Cardiology at [address] [place] [address] Jaspreet Kinsey MD [facility] [place] [address] documented as of this encounter Visit Diagnoses Not on filedocumented in this encounter Care Teams Timber Cruiser Relationship Specialty Start Date End Date Polo Pearce PA [address] [place] [address] PCP - General Internal Medicine 06/09/21 documented as of this encounter
--- OUTSIDE RECORDS SUMMARY | 2024-01-24 21:13 | XMS_ITS | Encounter Summary ---
Author Organization [facility] [place] [address] Care Team Providers Care Steel Finisher Name Role Phone Polo Pearce Primary Care Provider [phone] Encounter Details Date Type Department Care Team (Late st Contact Info) Description 02/16/2023 Telephone Cardiology at [address] [address] Jaspreet Kinsey MD [facility] [address] Social History Tobacco Use Types Packs/Day Years Used Date Smoking Tobacco: Never Smokeless Tobacco: Never Alcohol Use Standard Drinks/Week Comments Never 0 (1 standard drink = 0.6 oz pur e alcohol) [facility] Utilities Answer Date Recorded In the past 12 months has e [employer], gas, oil, or water [employer] threatened to shut off services in your [...] her problems. Please call her back @ [phone] documented in this encounter Plan of Treatment Upcoming Encounters Date Type Department Care Team (Late st Contact Info) Description 02/10/2024 1:00 PM EST Office Visit Cardiology at [address] [phone] Jaspreet Kinsey MD [facility] [place] [address] documented as of this encounter Visit Diagnoses Not on filedocumented in this encounter Care Teams Steel Finisher Relationship Specialty Start Date End Date Polo Pearce PA [address] [place] [address] PCP - General Internal Medicine 06/09/21 documented as of this encounter
--- OUTSIDE RECORDS SUMMARY | 2024-01-24 21:13 | XMS_ITS | Encounter Summary ---
Author Organization [facility] Address [address] [facility] [place] [address] Care Team Providers Care Senior Financial Accountant Name Role Phone Polo Pearce Primary Care Provider [phone] Encounter Details Date Type Department Care Team (Latest Contact Info) Description 02/16/2023 Travel Social History Tobacco Use Types Packs/Day Years Used Date Smoking Tobacco: Never Smokeless Tobacco: Never Alcohol Use Standard Drinks/Week Comments Never 0 (1 standard drink = 0.6 oz pur e alcohol) [facility] Utilities Answer Date Recorded In [...] PM EST Office Visit Cardiology at [address] [place] [phone] Jaspreet Kinsey MD [facility] [place] [address] documented as of this encounter Visit Diagnoses Not on filedocumented in this encounter Care Teams Senior Financial Accountant Relationship Specialty Start Date End Date Polo Pearce PA [address] [place] [address] PCP - General Internal Medicine 06/09/21 documented as of this encounter
--- OUTSIDE RECORDS SUMMARY | 2024-01-24 21:13 | XMS_ITS | Encounter Summary ---
[place] [address] Care Team Providers Care Statistical Machine Servicer Name Role Phone Polo Pearce Primary Care Provider [phone] Reason for Referral * Diagnostic Test (Routine) - Closed Specialty Diagnoses / Procedures Referred By Contac t Referred To Contact Diagnoses Pulmonary embolism, unspecified chronicity, unspecified pulmonary embolism type, unspecified whether acute cor pulmonale present Procedures Duplex Study for DVT, Bilat legs Mamie Marx APRN [facility] [place] [address] [facility] [address] [address] Referral ID Status Reason Start Date Expiration Date V isits Requested Visits Authorized [id number] Closed Specialty Service Requested 07/31/2022 07/31/2023 1 1 Encounter Details Date Type Department Care Team (Late st Contact Info) Description 07/31/2022 Orders Only [place] [address] Mamie Marx APRN [facility] [place] [address] Pulmonary embolism, unspecified chronicity, unspecified [...] PM EST Office Visit Cardiology at [address] [place] [address] Jaspreet Kinsey MD [facility] [place] [address] documented as of this encounter Results * Duplex Study for DVT, Bilat legs (10/20/2022 8:06 AM EDT) VB Text Report Department: Vascular Surgery Lab Patient: [id number] (LOIDA ROQUE) CPT: [id number] Referring Physician: MAMIE MARX ?? Phone: Indications: [...] present documented in this encounter Care Teams Statistical Machine Servicer Relationship Specialty Start Date End Date Polo Pearce PA [address] [place] [address] PCP - General Internal Medicine 06/09/21 documented as of this encounter
--- OUTSIDE RECORDS SUMMARY | 2024-01-24 21:13 | XMS_ITS | Encounter Summary ---
[place] [address] Care Team Providers Care Tool Grinder Operator Surface Name Role Phone Polo Pearce Primary Care Provider [phone] Reason for Visit * Auth/Cert (Routine) Specialty Diagnoses / Procedures Referred By Contac t Referred To Contact Diagnoses NSTEMI (non-ST elevated myocardial infarction) NSTEMI NSTEMI (non-ST elevated myocardial infarction) [I21.4] [I21.4] NSTEMI (non-ST elevated myocardial infarction) Procedures EMERGENCY IPI Itz Bhardwaj MD [facility] [place] [address] [facility] Referral ID Status Reason Start Date Expiration Date Visits Re quested Visits Authorized [id number] 1 1 Encounter Details Date Type Department Care Team (Latest Contact Info) Description 02/08/2023 6:34 PM EST - 02/11/2023 3:45 PM EST Hospital Encounter Heart and Vascular Unit Level 4 [place] [id number] Bobby Edmonds MD [facility] [place] [address] Itz Bhardwaj MD [facility] [address] Chest pain, unspecified type; NSTEMI (non-ST elevated myocardial infarction) Discharge Disposition: Home Social History Tobacco Use Types Packs/Day Years Used Date Smoking Tobacco: Never Smokeless Tobacco: Never Alcohol Use Standard Drinks/Week Comments Never 0 (1 standard drink = 0.6 oz pur e alcohol) [facility] Utilities Answer Date Recorded In the past 12 months has th e electric, gas, oil, or water [employer] threatened to shut off services in your [...] documented in this encounter Discharge Summaries * tIz Bhardwaj MD - 02/11/2023 12:43 PM EST Images from the original note were not included. Discharge Summary Patient Name: Loida Madrigal Patient Age: 52 y.o. Language: Vincentian Race: White Ethnicity: Not nor Admit date: 02/08/2023 Discharge date and time: 02/11/2023 Attending Physician: Itz Bhardwaj MD Discharge Physician: Itz Bhardwaj MD PCP: JOCY Franco ([phone]) ID: Loida Madrigal is a 52 y.o. female w/ PMH of NSTEMI (2019, no coronary disease identified),HTN, HLD, HFpEF, PE, AVNRT, and Afib on eliquis, admitted to [facility] on 02/08/2023 for a total of 3 [...] upper lobe. Started on eliquis 08/2022 TTE ([facility]): normal bi-v s/f. No [...] At this time, she presented to the [facility] ED. In the [facility] ED, initial troponin was elevated at 622ng/L. D-Dimer was 264 and K was 3.2. Pro-BNP was elevated at 1256. CXR did not show acute process. An EKG was performed and showed ST-depressions in leads II, III, aVF, and V4-V6. She was given several doses of sublingual nitroglycerin without significant reduction in chest pain. Given her elevated troponin and EKG changes, cardiology at [facility] was contacted for transfer. She was loaded [...] unchanged from prior EKGs. Her troponins at [facility] are flat 23 > 27. Additionally, she had a CT coronary in 09/2022 which showed non-obstructive coronary arteries. Her TTE was reassuring with EF 59% with concern for segmental wall motion abnormalities that were not present prior. Her chest pain is likely not related to ACS. She did continue to have chest pain throughoutadmission that responded to nitro. Her [employer] amlodipine was discontinued due to hypotension and [...] that was done by the on-call overnight six pack packer, there is no significant change in biventricular [...] days. Refills: 0 fluticasone propionate 50 mcg/actuation [place], Suspension Commonly known as: Flonase 1 spray [...] 11:20 AM Jed Tovar MD Cardiology at [facility] Arrive at: [facility] [phone] 03/04/2023 4:00 PM Jaspreet Kinsey MD Cardiology at [place] Arrive at: [facility] [address] [phone] Provider Contact Information: JOCY Franco [facility] / [facility] [id number] Discharge References/Attachments: Discharge References/Attachments None Addendum: The [...] as needed. fluticasone propionate (FLONASE) 50 mcg/actuation [place], Suspension 1 spray by Each Nare route [...] Afib on eliquis who initially presented to [facility] with chest pain and shortness of [...] that was done by the on-call overnight six pack packer, there is no significant change in biventricular function. Assessment: Loida Madrigal is a 52 y.o. female with a PMHx NSTEMI (2019, no coronary disease identified), HTN, HLD, HFpEF, and Afib on eliquis who initially presented to [facility] with chest pain and shortness ofbreath. [...] Heidy Walker DO Internal Medicine PGY-1 Pager [phone], M1-S2 Service Associated attestation - Itz Bhardwaj [...] 1 day ) Service: S2 ID: Loida Madrgial is a 52 y.o. female with PMHx NSTEMI (2019, no coronary disease identified),HTN, HLD, HFpEF, AVNRT, hx of PE, and Afib on eliquis who initially presented to [facility] with chest pain and shortness of [...] that was done by the on-call overnight six pack packer, there is no significant change in biventricular function. Cardiac Catheterization: Pending. Assessment: Loida Madrigal is a 52 y.o. female with a PMHx NSTEMI (2019, no coronary disease identified), HTN, HLD, HFpEF, and Afib on eliquis who initially presented to [facility] with chest pain and shortness ofbreath. [...] Heidy Walker DO Internal Medicine PGY-1 Pager [phone], M1-S2 Service documented in this encounter H&P Notes * German Bianchi MD - 02/08/2023 10:05 PM EST Images from the original note were not included. Cardiology Admission History and Physical Patient Name: Loida Madrigal Service: M1-S1 Responsible Attending: Bobby Edmonds MD PCP: JOCY Franco PCP phone #: [phone] ID/Chief Complaint: Loida Madrigal is a 52 y.o. female with a PMHx NSTEMI (2019, no coronary disease identified), HTN, HLD, HFpEF, PE, AVNRT, and Afib on eliquis who initially presented to [facility] with chest pain and shortness of breath, now transferred to [facility] for management of presumed NSTEMI. History of [...] At this time, she presented to the [facility] ED. In the [facility] ED, initial troponin was elevated at 622ng/L. D-Dimer was 264 and K was 3.2. Pro-BNP was elevated at 1256. CXR did not show acute process. An EKG was performed and showed ST-depressions in leads II, III, aVF, and V4-V6. She was given several doses of sublingual nitroglycerin without significant reduction in chest pain. Given her elevated troponin and EKG changes, cardiology at [facility] was contacted for transfer. She was loaded [...] upper lobe. Started on eliquis 08/2022 TTE ([facility]): normal bi-v s/f. No [...] as needed. fluticasone propionate (FLONASE) 50 mcg/actuation [place], Suspension 1 spray by Each Nare route [...] Mother: history of stroke. Father: history of ID in father. Siblings: none. Social History: Tobacco: [...] Afib on eliquis who initially presented to [facility] with chest pain and shortness of breath, now transferred to [facility] for management of presumed NSTEMI. Mrs. Madrigal [...] Bianchi MD, PGY-2 Cardiology M1-S2, Team Pager [phone] 02/08/2023 Associated attestation - Itz Bhardwaj MD [...] fairly recent. She has ruled out for ID with low-level not increasing troponins and her [...] in an outpatient cardiac rehabilitation program at [facility] was discussed. Patient agrees to a referral to this program. The referral will be sent at discharge and the patient should be contacted by the Program within 1- 2 weeks from discharge. * Plan of Care - Zoila hBatt RN - 02/11/2023 7:42 AM EST Problem: [...] COVID test: Lab Results Component Value Date [id number] Not Detected 06/13/2021 Present on Admission: NSTEMI (non-ST elevated myocardial infarction) Hospitalizations Within the Past 30 Days: no previous admission in last 30 days Patient receiving hospital care under Inpatient status. Admission order reviewed. Health/Prescription Coverage: Primary Insurance: [employer] [place] Pay[place] / Plan[place] [facility] [place] / Product Type: *No Product type* / Secondary Insurance: N/A ; Prescription Coverage: Yes Preferred Pharmacy: [facility] - [place], [place] - [address] [facility] [address] [facility] [address] [facility] - [place], [place] - [address] [facility] [address] [facility] [address] [facility] [address] Advance Care Planning: Attempt Cardiopulmonary Resuscitation - Inpatient <no information> -Advanced Directive: No, need to discuss (Referral sent to [facility] - Cage Unloader) Current Functional Ability: Independent Functional Status Prior to Admission: Independent Home Environment: Others in the home: spouse (Lives w/ (Boby)). Current Living Arrangements: home/apartment/condo. Accessibility Concerns:1.5 story home (steps w/ railings). 5-6 ADAN home. No concerns. Current DME: respiratory supplies ([employer] ([employer])) [address] [facility] [place] [address] Social & Family Supports: All names listed [...] Tasha aguayo, when medically ready. Registered Nurse Ammunition Supervisor / Mystery Shopper will continue to follow patient???s progress and [...] gtt infusing. Bedside echo & EKG done. [place] MD made aware of K2.9; repleted w/ [...] PM EST Office Visit Cardiology at [address] [place] [address] Jaspreet Kinsey MD [facility] [place] [address] documented as of this encounter Procedures Procedure [...] multiple bacterial species suggesting mucosal contamination. (A) [facility] Urine 02/11/2023 9:30 AM EST 02/11/2023 1:19 PM EST Narrative Resulting Agency Comment Spec In Lab Heidy Walker MD MICROBIOLOGY - GENER AL ORDERABLES [facility] [place] [address] * (ABNORMAL) Urinalysis Microscopic Exam (02/11/2023 9:30 AM EST) RBC, Urine 1 0 - 4 /HPF [facility] WBC, Urine 29(H) 0 - 5 /HPF [facility] Bacteria, Urine Few(A) None /HPF [facility] Squamous Epithelial Cells Raw Data, Urine 1 <=4 /HPF [facility] Transitional Epithelial Cells, Urine 2(H) <=1 /HPF [facility] Hyaline Casts, Urine 2 0 - 2 /LPF [facility] Calcium Oxalate Crystal, Urine Moderate( A) None /HPF [facility] Urine Urine / Unknown 02/11/2023 9 :30 AM EST 02/11/2023 10:33 AM EST Narrative Resulting Agency Comment Spec In Lab Heidy Walker MD URINE ORDERABLES Performing Organization Address City/[facility]/ZIP Co de Phone Number [facility] [place] [address] * (ABNORMAL) Urinalysis with reflex Culture (02/11/2023 9:30 AM EST) Glucose, Urine Dipstick 500(Critical ) Negative mg/dL [facility] Comment: Urinalysis result NOT critical without a combination of Glucose greater than or equal to 500 mg/dL AND Ketones greater than or equal to 80 mg/dL Protein, Urine Dipstick Negative Negative mg/dL [facility] Bilirubin, Urine Dipstick Negative Negative mg/dL [facility] Comment: Clinical correlation required for positive Urine Bilirubin results as false positive may occur with some drugs and drug related products. If a false positive is suspected a serum total bilirubin should be considered if clinically indicated. Urobilinogen, Urine Dipstick Normal Normal mg/dL [facility] pH, Urn (dipstick) 5.5 5.0 - 8.0 [facility] Blood, Urine Dipstick Negative Negative mg/dL [facility] Ketone, Urine Dipstick Trace(A) Negative mg/dL [facility] Nitrite, Urine Dipstick Negative Negative [facility] Leukocytes, Urine Dipstick Moderate(A) Negative mcL [facility] Appearance, Urine Dipstick Cloudy(A) Clear [facility] Specific [place] Urine Automated 1.029 1.005 - 1.030 [facility] Color, Urine Dipstick Dark Yellow Yellow [facility] Reflex to Culture Yes [facility] Urine Urine / Unknown 02/11/2023 9 :30 AM EST 02/11/2023 10:32 AM EST Narrative Resulting Agency Comment Spec In Lab Heidy Walker MD URINE ORDERABLES Performing Organization Address City/[facility]/ZIP Co de Phone Number [facility] [place] [address] * EKG 12 Lead (02/11/2023 6:07 AM EST) Ventricular rate 47 BPM MUSE SYSTEM Atrial Rate 47 BPM MUSE SYSTEM P-R Interval 200 ms MUSE SYSTEM QRS Duration 88 ms MUSE SYSTEM Q-T Interval 522 ms MUSE SYSTEM QTC Calculated (Bezet) 461 ms MUSE SYSTEM Calculated P [place] 36 degrees MUSE SYSTEM Calculated R [place] 48 degrees MUSE SYSTEM Calculated T [place] 12 degrees MUSE SYSTEM INTERPRETATION Sinus bradycardia Possible Left atrial enlargement Possible Lateral infarct (cited on or before 08-FEB-2023) Long QT interval Abnormal ECG When compared with ECG of 10-FEB-2023 11:44, No significant change was found I personally reviewed the tracing and edited the fellows interpretation Confirmed by fellow MD Rosalinda, Alejandro ([id number]) on 02/11/2023 2:15:46 PM Confirmed by Kai Haider ([id number]) on 02/11/2023 4:16:20 PM MUSE SYSTEM 02/11/2023 6:07 AM EST 02/11/2023 4:16 PM EST Itz Bhardwaj MD ECG ORDERABLES MUSE SYSTEM * Differential, Automated (02/11/2023 3:41 AM EST) Neutrophil % 53.9 % [facility] Neutrophil Absolute 3.50 1.70 - 6.10 x10(3)/[facility] Lymph % 31.5 % [facility] Lymphocytes Abs 2.0 0.9 - 3.2 x10(3)/[facility] Monocyte % 8.9 % [facility] Monocyte Abs 0.6 0.3 - 0.9 x10(3)/[facility] Eos % 4.9 % [facility] Eosinophils Abs 0.3 0.0 - 0.4 x10(3)/[facility] Basophil % 0.6 % [facility] Baso Absolute 0.0 0.0 - 0.1 x10(3)/[facility] Immature Gran % 0.20 % [facility] Comment: Immature granulocytes(IG's)percentage and absolute count will include metamyelocytes, myelocytes, and promyelocytes. Blood smears from CBCs yielding IG's will be scanned manually for concordance. If this scan disagrees with the automated IG or if promyelocytes are noted, a manual differential will be performed. Immature Gran Absolute 0.01 0.00 - 0.04 x10(3)/[facility] Blood 02/11/2023 3:41 AM EST 02/11/2023 4:01 AM EST Narrative Resulting Agency Comment Spec In Lab German Bianchi MD HEMATOLOGY ORDERABL ES Performing Organization Address [facility] Co de Phone Number [facility] [place] [address] * Hemogram (02/11/2023 3:41 AM EST) White Blood Cell 6.5 4.0 - 9.5 x10(3)/[facility] Red Blood Cell 4.55 4.00 - 5.21 x10(6)/[facility] Hemoglobin 14.4 11.7 - 15.5 g/dL [facility] Hematocrit 42.9 35.7 - 45.8 % [facility] Mean Cell Volume 94.3 82.6 - 94.4 fL [facility] Mean Cell Hemoglobin 31.6 27.1 - 32.0 pg [facility] Mean Cell Hemoglobin Concentration 33.6 31.7 - 35.0 g/dL [facility] Platelet 240 145 - 357 x10(3)/[facility] RDW Standard Deviation 42.9 37.0 - 46.0 fL [facility] RDW coefficient of variation 12.4 11.5 - 14.1 % [facility] Mean Platelet Volume 11.0 7.6 - 12.9 fL [facility] NRBC% auto 0.0 % [facility] NRBC Absolute 0.000 0.000 - 0.000 x10(3)/[facility] Blood 02/11/2023 3:41 AM EST 02/11/2023 4:01 AM EST Narrative Resulting Agency Comment Spec In Lab German Bianchi MD HEMATOLOGY ORDERABL ES Performing Organization Address [facility] Co de Phone Number [facility] [place] [address] * Magnesium (02/11/2023 3:41 AM EST) Magnesium 0.91 0.69 - 1.07 mmol/L [facility] Blood 02/11/2023 3:41 AM EST 02/11/2023 4:01 AM EST Narrative Resulting Agency Comment Spec In Lab Bobby Edmonds MD CHEMISTRY ORDERABLES [facility] [place] [address] * (ABNORMAL) Basic Metabolic Panel (non-fasting) (02/11/2023 3:41 AM EST) Glucose 97 65 - 199 mg/dL [facility] Comment:Diabetes: >=200 mg/d L plus symptoms Blood Urea Nitrogen 23(H) 8 - 18 mg/dL [facility] Creatinine 1.07 0.70 - 1.20 mg/dL [facility] Sodium 138 135 - 145 mmol/L [facility] Potassium 4.0 3.5 - 5.0 mmol/L [facility] Comment: Please note: ??Patients with WBC >100,000 may have falsely elevated Potassium levels. ??For accurate Potassium quantification in these patients send serum separator tube (gold top) for subsequent determinations. ??Contact the Clinical Chemistry Laboratory if there are any questions. Chloride 109(H) 98 - 107 mmol/L [facility] Carbon Dioxide 17(L) 22 - 31 mmol/L [facility] Anion Gap 12 5 - 15 mmol/L [facility] Calcium 9.1 8.5 - 10.5 mg/dL [facility] Est Glomerular Filtration Rate 62 >=60 mL/min/1. 73 m?? [facility] Comment: This patient's estimated GFR was [...] Edmonds MD CHEMISTRY ORDERABLES Performing Organization Address [facility] Co [place] [address] * Differential, Automated (02/10/2023 3:46 AM EST) Neutrophil % 59.8 % [facility] Neutrophil Absolute 4.01 1.70 - 6.10 x10(3)/[facility] Lymph % 27.5 % [facility] Lymphocytes Abs 1.8 0.9 - 3.2 x10(3)/[facility] Monocyte % 8.5 % [facility] Monocyte Abs 0.6 0.3 - 0.9 x10(3)/[facility] Eos % 3.7 % [facility] Eosinophils Abs 0.2 0.0 - 0.4 x10(3)/[facility] Basophil % 0.4 % [facility] Baso Absolute 0.0 0.0 - 0.1 x10(3)/[facility] Immature Gran % 0.10 % [facility] Comment: Immature granulocytes(IG's)percentage and absolute count will include metamyelocytes, myelocytes, and promyelocytes. Blood smears from CBCs yielding IG's will be scanned manually for concordance. If this scan disagrees with the automated IG or if promyelocytes are noted, a manual differential will be performed. Immature Gran Absolute 0.01 0.00 - 0.04 x10(3)/[facility] Blood 02/10/2023 3:46 AM EST 02/10/2023 4:12 AM EST Narrative Resulting Agency Comment Spec In Lab German Bianchi MD HEMATOLOGY ORDERABL ES Performing Organization Address [facility] Co [place] [address] * Hemogram (02/10/2023 3:46 AM EST) White Blood Cell 6.7 4.0 - 9.5 x10(3)/[facility] Red Blood Cell 4.60 4.00 - 5.21 x10(6)/[facility] Hemoglobin 14.4 11.7 - 15.5 g/dL [facility] Hematocrit 42.2 35.7 - 45.8 % [facility] Mean Cell Volume 91.7 82.6 - 94.4 fL [facility] Mean Cell Hemoglobin 31.3 27.1 - 32.0 pg [facility] Mean Cell Hemoglobin Concentration 34.1 31.7 - 35.0 g/dL [facility] Platelet 246 145 - 357 x10(3)/[facility] RDW Standard Deviation 42.3 37.0 - 46.0 fL [facility] RDW coefficient of variation 12.6 11.5 - 14.1 % [facility] Mean Platelet Volume 11.1 7.6 - 12.9 fL [facility] NRBC% auto 0.0 % [facility] NRBC Absolute 0.000 0.000 - 0.000 x10(3)/[facility] Blood 02/10/2023 3:46 AM EST 02/10/2023 4:12 AM EST Narrative Resulting Agency Comment Spec In Lab German Bianchi MD HEMATOLOGY ORDERABL ES Performing Organization Address City/[facility]/ZIP Co de Phone Number [facility] [place] [address] * Magnesium (02/10/2023 3:46 AM EST) Magnesium 1.01 0.69 - 1.07 mmol/L [facility] Blood 02/10/2023 3:46 AM EST 02/10/2023 4:12 AM EST Narrative Resulting Agency Comment Spec In Lab Bobby Edmonds MD CHEMISTRY ORDERABLES Performing Organization Address City/[facility]/ZIP Co de Phone Number [facility] [place] [address] * (ABNORMAL) Basic Metabolic Panel (non-fasting) (02/10/2023 3:46 AM EST) Glucose 103 65 - 199 mg/dL [facility] Comment:Diabetes: >=200 mg/d L plus symptoms Blood Urea Nitrogen 20(H) 8 - 18 mg/dL [facility] Creatinine 1.31(H) 0.70 - 1.20 mg/dL [facility] Sodium 141 135 - 145 mmol/L [facility] Potassium 3.4(L) 3.5 - 5.0 mmol/L [facility] Comment: Please note: ??Patients with WBC >100,000 may have falsely elevated Potassium levels. ??For accurate Potassium quantification in these patients send serum separator tube (gold top) for subsequent determinations. ??Contact the Clinical Chemistry Laboratory if there are any questions. Chloride 105 98 - 107 mmol/L [facility] Carbon Dioxide 23 22 - 31 mmol/L [facility] Anion Gap 13 5 - 15 mmol/L [facility] Calcium 9.2 8.5 - 10.5 mg/dL [facility] Est Glomerular Filtration Rate 49(L) >=60 mL/min/1. 73 m?? [facility] Comment: This patient's estimated GFR was [...] In Lab Bobby Edmonds MD CHEMISTRY ORDERABLES [facility] [place] [address] * Potassium (02/09/2023 2:46 PM EST) Potassium 4.0 3.5 - 5.0 mmol/L [facility] Comment: Please note: [...] Lab Itz Bhardwaj MD CHEMISTRY ORDERABL ES [facility] [place] [address] * ECHO LMTD W CONTRAST W LMTD SPEC DOPP COLOR DOPP (02/09/2023 9:01 AM EST) Anatomical Region Laterality Modality Cardiac Other 02/09/2023 8:19 AM EST Narrative 02/09/2023 9:39 AM EST [address] [place] [address] ? Echocardiogram Report Name: JUDE LOIDA ? Study Date: 02/09/2023 08:19 AMBP: 98/57 mmHg ? Patient Location: [facility] 0467 A : 1970 ? Height: 163 cm ? Account: [id number] Age: 52 yrs ? Weight: 99 kg Gender: Female ?BSA: 2.0 m2 Ordering Physician: BOBBY EDMONDS Referring Physician: AJ HARTMAN Performed By: Aaron Herr RDCS Reason For Study: NSTEMI (non-ST elevated myocardial infarction) Interpreting Fellow: Ciro Lovell. Exam Location: [facility]. Interpretation Summary Left ventricular systolic [...] that was done by the on-call overnight six pack packer, there is no significant change in biventricular function. Procedure Limited - 67630. Image enhancement Definity was used for left [...] Note Manish Benitez MD - 02/09/2023 [address] [place] [address] Echocardiogram Report Name: LOIDA MADRIGAL Study Date: 308:19 AMBP: 98/57 mmHg Patient Location: [id number] A : 1970 Height: 163 cm Account: [id number] Age: 52 yrs Weight: 99 kg Gender: Female BSA: 2.0 m2 Ordering Physician: BOBBY EDMONDS Referring Physician: AJ HARTMAN Performed By: Aaron Herr RDCS Reason For Study: NSTEMI (non-ST elevated myocardial infarction) Interpreting Fellow: Ciro Lovell. Exam Location: [facility]. Interpretation Summary Left ventricular systolic [...] change in biventricular function. Procedure Limited - 19467. Image enhancement Definity was used for leftventricular [...] EST) Troponin-T, High Sensitivity 27(H) <=14 ng/L [facility] Comment: This patient's troponin T concentration [...] value can be found in the [facility] Test Catalog Troponin - [facility] Test Catalog Reference: Fourth [place] Definition of Myocardial Infarction. Journal of the [place] [employer] 2018;72:0419-4533 Blood 02/09/2023 8:01 AM EST 02/09/2023 8:06 AM EST Narrative Resulting Agency Comment Spec In Lab Itz Bhardwaj MD CHEMISTRY ORDERABL ES Performing Organization Address City/[facility] Co de Phone Number [facility] [place] [address] * CRP, acute inflammation (02/09/2023 3:55 AM EST) C-Reactive Protein <3.0 <=4.9 mg/L [facility] Blood Venous Draw / Unknown 02/09/2023 3:55 AM EST 02/09/2023 4:07 AM EST Narrative Resulting Agency Comment Spec In Lab Grady Metcalf MD CHEMISTRY ORDERABLES Performing Organization Address City/[facility]/ZIP Co de Phone Number [facility] [place] [address] * Sedimentation rate (02/09/2023 3:55 AM EST) Sedimentation Rate Automated 15 2 - 39 mm/hr [facility] Comment: Effective February 15, 2019 new capillary photometric technology has resulted in a change in reference ranges. It is recommended that each ESR result be reviewed with its own age appropriate reference range. Blood Venous Draw / Unknown 02/09/2023 3:55 AM EST 02/09/2023 4:06 AM EST Narrative Resulting Agency Comment Spec In Lab Grady Metcalf MD HEMATOLOGY ORDERABLE S [facility] [place] [address] * Differential, Automated (02/09/2023 3:55 AM EST) [facility] Neutrophil % 54.3 % [facility] Neutrophil Absolute 3.66 1.70 - 6.10 x10(3)/[facility] Lymph % 32.4 % [facility] Lymphocytes Abs 2.2 0.9 - 3.2 x10(3)/[facility] Monocyte % 8.3 % [facility] Monocyte Abs 0.6 0.3 - 0.9 x10(3)/[facility] Eos % 4.1 % [facility] Eosinophils Abs 0.3 0.0 - 0.4 x10(3)/[facility] Basophil % 0.6 % [facility] Baso Absolute 0.0 0.0 - 0.1 x10(3)/[facility] Immature Gran % 0.30 % [facility] Comment: Immature granulocytes(IG's)percentage and absolute count will include metamyelocytes, myelocytes, and promyelocytes. Blood smears from CBCs yielding IG's will be scanned manually for concordance. If this scan disagrees with the automated IG or if promyelocytes are noted, a manual differential will be performed. Immature Gran Absolute 0.02 0.00 - 0.04 x10(3)/[facility] Blood 02/09/2023 3:55 AM EST 02/09/2023 4:06 AM EST Narrative Resulting Agency Comment Spec In Lab German Bianchi MD HEMATOLOGY ORDERABL ES Performing Organization Address City/[facility] Co de Phone Number [facility] [place] [address] * Hemogram (02/09/2023 3:55 AM EST) White Blood Cell 6.8 4.0 - 9.5 x10(3)/[facility] Red Blood Cell 4.53 4.00 - 5.21 x10(6)/[facility] Hemoglobin 14.2 11.7 - 15.5 g/dL [facility] Hematocrit 41.2 35.7 - 45.8 % [facility] Mean Cell Volume 90.9 82.6 - 94.4 fL [facility] Mean Cell Hemoglobin 31.3 27.1 - 32.0 pg [facility] Mean Cell Hemoglobin Concentration 34.5 31.7 - 35.0 g/dL [facility] Platelet 237 145 - 357 x10(3)/[facility] RDW Standard Deviation 41.1 37.0 - 46.0 fL [facility] RDW coefficient of variation 12.4 11.5 - 14.1 % [facility] Mean Platelet Volume 11.2 7.6 - 12.9 fL [facility] NRBC% auto 0.0 % [facility] NRBC Absolute 0.000 0.000 - 0.000 x10(3)/[facility] Blood 02/09/2023 3:55 AM EST 02/09/2023 4:06 AM EST Narrative Resulting Agency Comment Spec In Lab German Bianchi MD HEMATOLOGY ORDERABL ES Performing Organization Address City/[facility]/ZIP Co de Phone Number [facility] [place] [address] * (ABNORMAL) Heparin (unfractionated) Level (02/09/2023 3:55 AM EST) UF Heparin 1.44(Crit ical) IU/mL [facility] Comment: Critical Result called by ?? [...] ORDERABLE S Performing Organization Address [facility] Co de Phone Number [facility] [place] [address] * Magnesium (02/09/2023 3:55 AM EST) Magnesium 1.04 0.69 - 1.07 mmol/L [facility] Blood 02/09/2023 3:55 AM EST 02/09/2023 4:06 AM EST Narrative Resulting Agency Comment Spec In Lab Bobby Edmonds MD CHEMISTRY ORDERABLES Performing Organization Address [facility] Co de Phone Number [facility] [place] [address] * (ABNORMAL) Basic Metabolic Panel (non-fasting) (02/09/2023 3:55 AM EST) Glucose 103 65 - 199 mg/dL [facility] Comment:Diabetes: >=200 mg/d L plus symptoms Blood Urea Nitrogen 19(H) 8 - 18 mg/dL [facility] Creatinine 1.13 0.70 - 1.20 mg/dL [facility] Sodium 142 135 - 145 mmol/L [facility] Comment:result rechecked-GH Potassium 2.9(Criti edy) 3.5 - 5.0 mmol/L [facility] Comment: Called by: , Read back by: Zoila Bhatt, Date/Time:02/09/23 04:43. Please note: ??Patients with WBC >100,000 may have falsely elevated Potassium levels. ??For accurate Potassium quantification in these patients send serum separator tube (gold top) for subsequent determinations. ??Contact the Clinical Chemistry Laboratory if there are any questions. Chloride 103 98 - 107 mmol/L [facility] Comment:result rechecked- Carbon Dioxide 24 22 - 31 mmol/L [facility] Comment:result rechecked- Anion Gap 15 5 - 15 mmol/L [facility] Calcium 9.4 8.5 - 10.5 mg/dL [facility] Est Glomerular Filtration Rate 58(L) >=60 mL/min/1. 73 m?? [facility] Comment: This patient's estimated GFR was [...] In Lab Bobby Edmonds MD CHEMISTRY ORDERABLES [facility] [place] [address] * Differential, Automated (02/08/2023 10:08 PM EST) Neutrophil % 55.7 % [facility] Neutrophil Absolute 4.29 1.70 - 6.10 x10(3)/[facility] Lymph % 33.0 % [facility] Lymphocytes Abs 2.5 0.9 - 3.2 x10(3)/[facility] Monocyte % 7.7 % [facility] Monocyte Abs 0.6 0.3 - 0.9 x10(3)/[facility] Eos % 2.9 % [facility] Eosinophils Abs 0.2 0.0 - 0.4 x10(3)/[facility] Basophil % 0.6 % [facility] Baso Absolute 0.0 0.0 - 0.1 x10(3)/[facility] Immature Gran % 0.10 % [facility] Comment: Immature granulocytes(IG's)percentage and absolute count will include metamyelocytes, myelocytes, and promyelocytes. Blood smears from CBCs yielding IG's will be scanned manually for concordance. If this scan disagrees with the automated IG or if promyelocytes are noted, a manual differential will be performed. Immature Gran Absolute 0.01 0.00 - 0.04 x10(3)/[facility] Blood 02/08/2023 10:0 8 PM EST 02/08/2023 10:18 PM EST Narrative Resulting Agency Comment Spec In Lab German Bianchi MD HEMATOLOGY ORDERABL ES [facility] [place] [address] * (ABNORMAL) Hemogram (02/08/2023 10:08 PM EST) White Blood Cell 7.7 4.0 - 9.5 x10(3)/mc L [facility] Red Blood Cell 4.93 4.00 - 5.21 x10(6)/mc L [facility] Hemoglobin 15.6(H) 11.7 - 15.5 g/dL [facility] Hematocrit 46.9(H) 35.7 - 45.8 % [facility] Mean Cell Volume 95.1(H) 82.6 - 94.4 fL [facility] Mean Cell Hemoglobin 31.6 27.1 - 32.0 pg [facility] Mean Cell Hemoglobin Concentration 33.3 31.7 - 35.0 g/dL [facility] Platelet 201 145 - 357 x10(3)/ L [facility] RDW Standard Deviation 45.0 37.0 - 46.0 fL [facility] RDW coefficient of variation 12.8 11.5 - 14.1 % [facility] Mean Platelet Volume 11.3 7.6 - 12.9 fL [facility] NRBC% auto 0.0 % [facility] NRBC Absolute 0.000 0.000 - 0.000 x10(3)/mc L [facility] Blood 02/08/2023 10:0 8 PM EST 02/08/2023 10:18 PM EST Narrative Resulting Agency Comment Spec In Lab German Bianchi MD HEMATOLOGY ORDERABL ES [facility] [place] [address] * (ABNORMAL) Troponin (02/08/2023 10:08 PM EST) Troponin-T, High Sensitivity 23(H) <=14 ng/L [facility] Comment: This patient's troponin T concentration [...] value can be found in the [facility] Test Catalog Troponin - [facility] Test Catalog Reference: Fourth [place] Definition of Myocardial Infarction. Journal of the [place] [employer] 2018;72:3209-9250 Blood 02/08/2023 10:0 8 PM EST 02/08/2023 10:18 PM EST Narrative Resulting Agency Comment Spec In Lab Bobby Edmonds MD CHEMISTRY ORDERABLES Performing Organization Address City/[facility]/ZIP Co de Phone Number [facility] [place] [address] * (ABNORMAL) Magnesium (02/08/2023 10:08 PM EST) Magnesium 1.15(H) 0.69 - 1.07 mmol/L [facility] Blood 02/08/2023 10:0 8 PM EST 02/08/2023 10:18 PM EST Narrative Resulting Agency Comment Spec In Lab Bobby Edmonds MD CHEMISTRY ORDERABLES Performing Organization Address [facility] Co de Phone Number [facility] [place] [address] * (ABNORMAL) Basic Metabolic Panel (non-fasting) (02/08/2023 10:08 PM EST) Glucose 106 65 - 199 mg/dL [facility] Comment:Diabetes: >=200 mg/d L plus symptoms Blood Urea Nitrogen 17 8 - 18 mg/dL [facility] Creatinine 0.96 0.70 - 1.20 mg/dL [facility] Sodium 151(H) 135 - 145 mmol/L [facility] Potassium 3.4(L) 3.5 - 5.0 mmol/L [facility] Comment: Please note: ??Patients with WBC >100,000 may have falsely elevated Potassium levels. ??For accurate Potassium quantification in these patients send serum separator tube (gold top) for subsequent determinations. ??Contact the Clinical Chemistry Laboratory if there are any questions. Chloride 91(L) 98 - 107 mmol/L [facility] Carbon Dioxide 12(L) 22 - 31 mmol/L [facility] Anion Gap 48(H) 5 - 15 mmol/L [facility] Calcium 8.9 8.5 - 10.5 mg/dL [facility] Est Glomerular Filtration Rate 71 >=60 mL/min/1. 73 m?? [facility] Comment: This patient's [...] Edmonds MD CHEMISTRY ORDERABLES Performing Organization Address City/[facility]/ZIP Co de Phone Number [facility] [place] [address] * (ABNORMAL) pro-Brain Natriuretic Peptide (02/08/2023 10:08 PM EST) NT-proBNP 850(H) <=124 pg/mL [facility] Blood 02/08/2023 10:0 8 PM EST 02/08/2023 10:18 PM EST Narrative Resulting Agency Comment Spec In Lab Bobby Edmonds MD CHEMISTRY ORDERABLES Performing Organization Address [facility] Co de Phone Number [facility] [place] [address] * TSH (02/08/2023 10:08 PM EST) Thyroid Stimulating Hormone 4.00 0.27 - 4.20 mcIU/mL [facility] Comment: Reference Interval (mcIU/mL): Females: ??First Trimester: 0.23-3.88 ??Second Trimester: 0.22-3.90 ??Third Trimester: 0.44-4.66 Blood 02/08/2023 10:0 8 PM EST 02/08/2023 10:18 PM EST Narrative Resulting Agency Comment Spec In Lab Bobby Edmonds MD CHEMISTRY ORDERABLES Performing Organization Address City/[facility]/ZIP Co de Phone Number [facility] [place] [address] * EKG 12 Lead (02/08/2023 6:38 PM EST) Ventricular rate 56 BPM MUSE SYSTEM Atrial Rate 56 BPM MUSE SYSTEM P-R Interval 182 ms MUSE SYSTEM QRS Duration 88 ms MUSE SYSTEM Q-T Interval 498 ms MUSE SYSTEM QTC Calculated (Bezet) 480 ms MUSE SYSTEM Calculated P [place] 27 degrees MUSE SYSTEM Calculated R [place] 40 degrees MUSE SYSTEM Calculated T [place] 15 degrees MUSE SYSTEM INTERPRETATION Sinus bradycardia [...] EST Unknown ECG ORDERABLES Performing Organization Address [facility] Co de Phone Number MUSE [...] Routine documented in this encounter Care Teams Tool Grinder Operator Surface Relationship Specialty Start Date End Date Polo Pearce PA [address] [place] [address] PCP - General Internal Medicine 06/09/21 documented as of this encounter
--- OUTSIDE RECORDS SUMMARY | 2024-01-24 21:13 | XMS_ITS | Encounter Summary ---
Author Organization [facility] [place] [address] Care Team Providers Care Nut Tightener Name Role Phone Polo Pearce Primary Care Provider [phone] Reason for Visit * Reason Onset Date Comments Results 08/17/2022 Encounter Details Date Type Department Care Team (Late st Contact Info) Description 08/17/2022 Telephone Cardiology at [address] [address] Jaspreet Kinsey MD [facility] [place] [address] Results Social History Tobacco Use Types Packs/Day [...] PM EST Office Visit Cardiology at [address] [place] [address] Jaspreet Kinsey MD [facility] [place] [address] documented as of this encounter Visit Diagnoses Not on filedocumented in this encounter Care Teams Nut Tightener Relationship Specialty Start Date End Date Polo Pearce PA [address] [place] [id number] PCP - General Internal Medicine 06/09/21 documented as of this encounter
--- OUTSIDE RECORDS SUMMARY | 2024-01-24 21:13 | XMS_ITS | Encounter Summary ---
Author Organization [facility] Address [facility] [place] [address] Care Team Providers Care Visitor Information Assistant Name Role Phone Polo Pearce Primary Care Provider [phone] Encounter Details Date Type Department Care Team (Late st Contact Info) Description 08/31/2022 External [place] [address] Social History Tobacco Use Types Packs/Day Years [...] 1:00 PM EST Office Visit Cardiology at [address] [place] [address] Jaspreet Kinsey MD [facility] [place] [address] documented as of this encounter Procedures Procedure Name Priority Date/Time Associated Diagnosis Comments ECG SCAN Routine 08/31/2022 2:00 PM EDT documented in this encounter Results * Scan Doc: ECG (08/31/2022 2:00 PM EDT) Historical Provider MD MEDIA MGR SCAN EX T ORDR/RSLT documented in this encounter Visit Diagnoses Not on filedocumented in this encounter Care Teams Visitor Information Assistant Relationship Specialty Start Date End Date Polo Pearce PA [address] [place] [address] PCP - General Internal Medicine 06/09/21 documented as of this encounter
--- OUTSIDE RECORDS SUMMARY | 2024-01-24 21:13 | XMS_ITS | Encounter Summary ---
Author Organization [facility] [place] [address] Care Team Providers Care Design Architect Name Role Phone Polo Pearce Primary Care Provider [phone] Encounter Details Date Type Department Care Team (Late st Contact Info) Description 02/08/2023 External Results [place] [address] Social History Tobacco Use Types Packs/Day Years [...] PM EST Office Visit Cardiology at [address] [place] [address] Jaspreet Kinsey MD [facility] [place] [address] documented as of this encounter Procedures Procedure Name Priority Date/Time Associated Diagnosis Comments ECG SCAN Routine 02/08/2023 3:27 PM EST documented in this encounter Results * Scan Doc: ECG (02/08/2023 3:27 PM EST) Historical Provider MD FLEMING MGR SCAN EX T ORDR/RSLT documented in this encounter Visit Diagnoses Not on filedocumented in this encounter Care Teams Design Architect Relationship Specialty Start Date End Date Polo Pearce PA [address] [place] [address] PCP - General Internal Medicine 06/09/21 documented as of this encounter
--- OUTSIDE RECORDS SUMMARY | 2024-01-24 21:13 | XMS_ITS | Encounter Summary ---
Author Organization [facility] [place] [address] Care Team Providers Care Service Observer Name Role Phone Polo Pearce Primary Care Provider [phone] Encounter Details Date Type Department Care Team (Late st Contact Info) Description 02/08/2023 Telephone Cardiology at [address] [address] Ericka Brenner PA [facility] [place] [address] Social History Tobacco Use Types Packs/Day Years [...] PM Referring Provider: Dr. Iyer Patient Location: [facility] Brief History 52 year old [...] acute aortopathy. 4. No acute pulmonary findings. [facility] 08/2019: Conclusions: * Normal coronary arteries OSH Interventions: Sl nitro Full dose ASA Assessment & Plan: 52 year old female with history of prior NSTEMI with normal coronaries 2019, recent coronary CTA with ca score 198), HTN, HLD, HFpEF, Afib (on Eliquis) who is presenting with chest pain. Has had similar presentation in 2019 with a [facility] demonstrating normal coronaries at that time. [...] as type 1 NSTEMI and transfer to [facility] for further evaluation. - agree with nitro gtt if not chest pain free - if persistent chest pain with nitro gtt would load Plavix 600mg - start IV heparin gtt 12 hours post last dose of Eliquis - BB as able, HI statin - transfer to [facility] 02/08/23 Above recommendations were based on my discussion with Dr. Iyer; I have not personally interviewed or examined this patient. I encouraged them to contact us if there is any change in symptoms, decision- making, or further need for guidance in management. JOCY Valdivia-Chauncey Access Pager [phone] 02/08/2023 documented in this encounter Plan of Treatment Upcoming Encounters Date Type Department Care Team (Late st Contact Info) Description 02/10/2024 1:00 PM EST Office Visit Cardiology at [address] [place] [address] Jaspreet Kinsey MD [facility] [place] [address] documented as of this encounter Visit Diagnoses Not on filedocumented in this encounter Care Teams Service Observer Relationship Specialty Start Date End Date Polo Pearce PA [address] [place] [id number] PCP - General Internal Medicine 06/09/21 documented as of this encounter
--- OUTSIDE RECORDS SUMMARY | 2024-01-24 21:13 | XMS_ITS | Encounter Summary ---
Author Organization [facility] [place] [address] Care Team Providers Care Carbon Rod Inserter Name Role Phone Polo Pearce Primary Care Provider [phone] Encounter Details Date Type Department Care Team (Late st Contact Info) Description 09/26/2022 [place] [address] Paulo Ramachandran Jr., MD [facility] [address] Social History Tobacco Use Types Packs/Day Years [...] vasospasm rather than a true Type I [place], however, given degree of troponin rise and [...] PM EST Office Visit Cardiology at [address] [place] [address] Jaspreet Kinsey MD [facility] [place] [address] documented as of this encounter Visit Diagnoses Not on filedocumented in this encounter Care Teams Carbon Rod Inserter Relationship Specialty Start Date End Date Polo Pearce PA [address] [place] [address] PCP - General Internal Medicine 06/09/21 documented as of this encounter
--- OUTSIDE RECORDS SUMMARY | 2024-01-24 21:13 | XMS_ITS | Encounter Summary ---
Author Organization [facility] [address] Care Team Providers Care Career Center Advisor Name Role Phone Polo Pearce Primary Care Provider [phone] Encounter Details Date Type Department Care Team (Late st Contact Info) Description 12/22/2022 Telephone Cardiology at [address] [address] Jaspreet Kinsey MD [facility] [place] [address] Social History Tobacco Use Types Packs/Day Years [...] PM EST Office Visit Cardiology at [address] [place] [address] Jaspreet Kinsey MD [facility] [place] [address] documented as of this encounter Visit Diagnoses Not on filedocumented in this encounter Care Teams Career Center Advisor Relationship Specialty Start Date End Date Polo Pearce PA [address] [place] [address] PCP - General Internal Medicine 06/09/21 documented as of this encounter
--- OUTSIDE RECORDS SUMMARY | 2024-01-24 21:13 | XMS_ITS | Encounter Summary ---
[place] [address] Care Team Providers Care Cloth Shrinking Machine Operator Name Role Phone Polo Pearce Primary Care Provider [phone] Reason for Referral * Consultation (Routine) - Closed Specialty Diagnoses / Procedures Referred By Contac t Referred To Contact Cardiology Diagnoses Non-ST elevation myocardial infarction (NSTEMI) Itz Bhardwaj MD [facility] [address] [address] [place] [address] Referral ID Status Reason Start Date Expiration Date V isits Requested Visits Authorized [id number] Closed Consult, Test & Treat Non PCP 02/18/2023 08/17/2023 36 36 Encounter Details Date Type Department Care Team (Late st Contact Info) Description 02/18/2023 Orders [place] [address] Jazmin Levine RN Non-ST elevation myocardial infarction (NSTEMI) Social History Tobacco Use Types Packs/Day Years Used Date Smoking Tobacco: Never Smokeless Tobacco: Never Alcohol Use Standard Drinks/Week Comments Never 0 (1 standard drink = 0.6 oz pur e alcohol) [facility] Utilities Answer Date [...] PM EST Office Visit Cardiology at [address] [place] [phone] Jaspreet Kinsey MD [facility] [address] Scheduled Referrals Name Type Priority Associated Diagnoses Orde r Schedule Referral to Cardiac Rehab Outpatient Referral Routine Non-ST elevation myocardial infarction (NSTEMI) Ordered: 02/18/2023 documented as of this encounter Visit Diagnoses Diagnosis Non-ST elevation myocardial infarction (NSTEMI) Acute myocardial infarction, subendocardial infarction, episode of care unspecified documented in this encounter Care Teams Cloth Shrinking Machine Operator Relationship Specialty Start Date End Date Polo Pearce PA [address] [place] [address] PCP - General Internal Medicine 06/09/21 documented as of this encounter
--- OUTSIDE RECORDS SUMMARY | 2024-01-24 21:13 | XMS_ITS | Encounter Summary ---
Author Organization [place] [address] Care Team Providers Care Customer Acquisition Manager Name Role Phone Polo Pearce Primary Care Provider [phone] Reason for Visit * Consultation (Routine) - Closed Specialty Diagnoses / Procedures Referred By Jayant harris Referred To Contact Vascular Surgery Diagnoses Pulmonary embolism, unspecified chronicity, unspecified pulmonary embolism type, unspecified whether acute cor pulmonale present ROUTINE, RAMY ABBOTT DVT Vascular medicine PE clinic: seemingly unprovoked small PE. review consideration of hypercoagulability testing Jaspreet Kinsey MD [facility] [place] [address] Elvin Maya MD [facility] [place] [address] Referral ID Status Reason Start Date Expiration Date V isits Requested Visits Authorized [id number] Closed Consult, Test & Treat 07/30/2022 07/30/2023 1 1 Encounter Details Date Type Department Care Team (Late st Contact Info) Description 10/20/2022 9:00 AM EDT Office [place] [address] Umberto Abbott MD [facility] [place] [address] Pulmonary embolism, unspecified chronicity, unspecified pulmonary embolism [...] [facility] [place] [address] VASCULAR MEDICINE CLINIC NOTE PRIMARY CARE PROVIDER: JOCY Franco REFERRING PROVIDER: Jaspreet Kinsey PROBLEM LIST: Patient Active Problem List Diagnosis Pulmonary embolus 07/2022: right upper lobe. Started on eliquis 08/2022 TTE ([facility]): normal bi-v s/f. 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 Kinsey, and he had uptitrated her [...] Vascular Clinic as needed. Sindhu Santo MD Research Clerk, PGY5 #[id number] Cardiovascular Medicine Attending I have interviewed and [...] PM EST Office Visit Cardiology at [address] [phone] Jaspreet Kinsey MD [facility] [place] [address] documented as of this encounter Visit Diagnoses Diagnosis Pulmonary embolism, unspecified chronicity, unspecified pulmonary embolism type, unspecified whether acute cor pulmonale present- Primary PAF (paroxysmal atrial fibrillation) Atrial fibrillation documented in this encounter Care Teams Customer Acquisition Manager Relationship Specialty Start Date End Date Polo Pearce PA [address] [place] [address] PCP - General Internal Medicine 06/09/21 documented as of this encounter
--- OUTSIDE RECORDS SUMMARY | 2024-01-24 21:13 | XMS_ITS | Encounter Summary ---
Author Organization [facility] Address [facility] [place] [address] Care Team Providers Care Plastic Dolls Mold Filler Name Role Phone Polo Pearce Primary Care Provider [phone] Reason for Visit * Reason Comments Congestive Heart Failure HFpEF Encounter Details Date Type Department Care Team (Late st Contact Info) Description 10/08/2022 4:00 PM EDT Office Visit Cardiology at [address] [address] Jaspreet Kinsey MD [facility] [place] [address] Pulmonary embolism, unspecified chronicity, unspecified pulmonary embolism [...] through Care Everywhere. * Low Sodium Diet (Croatian) * Low Sodium Foods: General Info (Croatian) documented in this encounter Progress Notes * [...] be estimated Intercurrently, patient was admitted to [facility] 09/2022. She presented after developing acute worseningof [...] 30 DAYS fluticasone propionate (FLONASE) 50 mcg/actuation Timblin, Suspension 1 spray, Each Nare, DAILY gabapentin [...] preserved ejection fraction 05/2021: subacute, presented to [facility] with RUQ pain, weight gain, [...] PM EST Office Visit Cardiology at [address] [place] [address] Jaspreet Kinsey MD [facility] [place] [address] documented as of this encounter Visit Diagnoses Diagnosis Pulmonary embolism, unspecified chronicity, unspecified pulmonary embolism type, unspecified whether acute cor pulmonale present Heart failure with preserved ejection fraction, unspecified HF chronicity Chronic heart failure with preserved ejection fraction documented in this encounter Care Teams Plastic Dolls Mold Filler Relationship Specialty Start Date End Date Polo Pearce PA [address] [place] [address] PCP - General Internal Medicine 06/09/21 documented as of this encounter
--- OUTSIDE RECORDS SUMMARY | 2024-01-24 21:13 | XMS_ITS | Encounter Summary ---
Author Organization [facility] [place] [address] Care Team Providers Care Range Master Name Role Phone Polo Pearce Primary Care Provider [phone] Encounter Details Date Type Department Care Team (Late st Contact Info) Description 10/20/2022 8:00 AM EDT Tech Visit [place] [phone] Florencia Callahan [place] Pulmonary embolism, unspecified chronicity, [...] PM EST Office Visit Cardiology at [address] [phone] Jaspreet Kinsey MD [facility] [place] [address] documented as of this encounter Procedures Procedure [...] (Bezet) 525 ms MUSE SYSTEM Calculated R [place] 41 degrees MUSE SYSTEM Calculated T [place] 40 degrees MUSE SYSTEM INTERPRETATION Atrial fibrillation Nonspecific ST and T wave abnormality Prolonged QTc Abnormal ECG When compared with ECG of 08-OCT-2022 16:19, Atrial fibrillation has replaced Sinus rhythm Vent. rate has increased BY ??34 BPM Nonspecific T wave abnormality, improved in Inferior leads QT has lengthened I personally reviewed the tracing and edited the fellows interpretation Confirmed by fellow Otis Rader ([id number]) on 10/20/2022 3:03:05 PM Confirmed by MD Maxwell Hannah ([id number]) on 10/20/2022 7:08:19 PM MUSE SYSTEM 10/20/2022 10:0 3 AM EDT 10/20/2022 7:08 PM EDT Unknown ECG ORDERABLES MUSE SYSTEM * Duplex Study for DVT, Bilat legs (10/20/2022 8:06 AM EDT) VB Text Report Department: Vascular Surgery Lab Patient: [id number] (LOIDA ROQUE) CPT: 82208 Referring Physician: MAMIE MAXR ?? Phone: Indications: ??History PE, ? lower [...] present documented in this encounter Care Teams Range Master Relationship Specialty Start Date End Date Polo Pearce PA [address] [place] [address] PCP - General Internal Medicine 06/09/21 documented as of this encounter
--- OUTSIDE RECORDS SUMMARY | 2024-01-24 21:13 | XMS_ITS | Encounter Summary ---
Author Organization [facility] [place] [address] Care Team Providers Care Strategy Consultant Name Role Phone Polo Pearce Primary Care Provider [phone] Encounter Details Date Type Department Care Team [...] PM EST Office Visit Cardiology at [address] [place] [address] Jaspreet Kinsey MD [facility] [place] [address] documented as of this encounter Visit Diagnoses Not on filedocumented in this encounter Care Teams Strategy Consultant Relationship Specialty Start Date End Date Polo Pearce PA [address] [place] [address] PCP - General Internal Medicine 06/09/21 documented as of this encounter
--- OUTSIDE RECORDS SUMMARY | 2024-01-24 21:13 | XMS_ITS | Encounter Summary ---
[place] [address] Care Team Providers Care Analysis Director Name Role Phone Polo Pearce Primary Care Provider [phone] Reason for Visit * Auth/Cert (Routine) Specialty Diagnoses / Procedures Referred By Contac t Referred To Contact Diagnoses NSTEMI (non-ST elevated myocardial infarction) NSTEMI Procedures EMERGENCY IPI Susannah Gómez MD [facility] [address] [facility] Referral ID Status Reason Start Date Expiration Date Visits Re quested Visits Authorized [id number] 1 1 Encounter Details Date Type Department Care Team (Latest Contact Info) Description 09/26/2022 3:42 PM EDT - 09/28/2022 5:02 PM EDT Hospital Encounter Heart and Vascular Unit Level 4 [place] [id number] Susannah Gómez MD [facility] [address] Non-ST elevation myocardial infarction (NSTEMI) [...] to the point that she presented to [facility] at around 630 or 7 AM [...] 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 She is under a considerable amount of [...] days. Refills: 0 fluticasone propionate 50 mcg/actuation Phelan, Suspension Commonly known as: Flonase 1 spray [...] 4:00 PM Jaspreet Kinsey MD Cardiology at [place] Arrive at: [facility] [address] [phone] 10/20/2022 8:00 AM Florencia Callahan [place] Vascular Lab at [facility] Arrive at: [employer] [facility] [phone] 10/20/2022 9:00 AM Umberto Abbott [place] [facility] [place]rive at: [employer] [facility] [employer] [phone] Provider Contact Information: JOCY [address] DR [facility] [id number] Discharge References/Attachments: Discharge References/Attachments None documented in [...] October 08, 2022 at 4:00 pm in [place]). MEDICATION INSTRUCTIONS: At discharge, START - amlodipine [...] as needed. fluticasone propionate (FLONASE) 50 mcg/actuation Phelan, Suspension 1 spray by Each Nare route [...] EDT CARDIOLOGY S2 Daily Progress Note Pager [phone] Admit Date: 09/26/2022 Encounter Date: September 27, [...] Prophylaxis: LMWH DOAC Cardiology Staff Addendum Loida aMdrigal is a 52 y.o. 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 She is under a considerable amount of [...] 30 DAYS fluticasone propionate (FLONASE) 50 mcg/actuation Phelan, Suspension 1 spray, Each Nare, DAILY gabapentin [...] Medicine, PGY-1 Cardiology M1-S1, #3011 Cardiology M1-S2, #4422 09/26/2022, 6:07 PM Cardiology Staff Addendum Loida [...] COVID test: Lab Results Component Value Date [id number] Not Detected 06/13/2021 Present on Admission: NSTEMI (non-ST elevated myocardial infarction) Hospitalizations Within the Past 30 Days: no previous admission in last 30 days Patient receiving hospital care under Inpatient status. Admission order reviewed. Health/Prescription Coverage: Primary Insurance: [facility] [place] Payor: [employer] [place] / Plan: [place] / Product Type: *No Product type* / Secondary Insurance: N/A ; Prescription Coverage: Preferred Pharmacy: [phone] - [place], [place] - [address] [facility] [address] [facility] [place] [address] [place], [place] - [address] [facility] [address] [facility] [address] [facility] [address] Advance Care Planning: Attempt Cardiopulmonary Resuscitation - Inpatient <no information> - Current Functional Ability: Independent Functional Status Prior to Admission: Home Environment: . Current Living Arrangements: home/apartment/condo. Accessibility Concerns: . Current DME: [address] [facility] [address] Social & Family Supports: All names listed [...] private vehicle when medically ready. Registered Nurse Erosion Control Specialist / Cloth Carrier will continue to follow patient???s progress and remain available if situation changes for coordination of care, psychosocial support and/or discharge planning. Office of Care Management Fab GALARZA, RN CM Case Management [phone] * Plan of Care - Antonio Swann [...] PM EST Office Visit Cardiology at [address] [place] [address] Jaspreet Kinsey MD [facility] [address] documented as of this encounter Procedures Procedure [...] EDT) pH, Venous 7.32 7.32 - 7.42 [facility] PCO2, Venous 45 41 - 51 mmHg [facility] PO2, Venous 30 25 - 40 mmHg [facility] Bicarbonate, Venous 22.8 mmol/L [facility] Base Excess, Venous -3.3 mmol/L [facility] Hgb Blood Gas 15.2 11.7 - 15.5 g/dL [facility] Oxyhemoglobin, Venous 52.4 % [facility] Carboxyhemoglob in, Venous 1.0 % [facility] Comment: Nonsmokers: 0.5-1.5% COHB Smokers: Variable, but usually less than 10% Toxic: 20-30% COHB Lethal: Greater than 60% COHB Methemoglobin, Venous 0.3 <=1.5 % [facility] Na Whole Blood 139 135 - 145 mmol/L [facility] K Whole Blood 4.6 3.5 - 5.0 mmol/L [facility] Comment: Please note: Patients with WBC >100,000 may have falsely elevated Potassium levels. Contact the Clinical Chemistry Laboratory if there are any questions. ICa Whole Blood 1.23 1.15 - 1.33 mmol/L [facility] Comment: Note: ??Total bilirubin higher than 20 mg/dL may lead to falsely low ionized calcium. CL Whole Blood 104 98 - 107 mmol/L [facility] Gluc Whole Bld 87 65 - 199 mg/dL [facility] Comment:Diabetes: >=200 mg/d L plus symptoms Lactate WB 1.3 0.5 - 2.2 mmol/L [facility] Blood Gas Source Venous [facility] Blood Venous Draw / Unknown 09/28/2022 3:39 PM EDT 09/28/2022 3:50 PM EDT Narrative Resulting Agency Comment Spec In Lab Ciro Lovell MD CHEMISTRY ORDERABLES [facility] [place] [address] * EKG 12 Lead (09/28/2022 1:58 PM EDT) Ventricular rate 57 BPM MUSE SYSTEM Atrial Rate 57 BPM MUSE SYSTEM P-R Interval 180 ms MUSE SYSTEM QRS Duration 86 ms MUSE SYSTEM Q-T Interval 414 ms MUSE SYSTEM QTC Calculated (Bezet) 402 ms MUSE SYSTEM Calculated P Montgomery 40 degrees MUSE SYSTEM Calculated R Montgomery 67 degrees MUSE SYSTEM Calculated T Montgomery -56 degrees MUSE SYSTEM INTERPRETATION Sinus bradycardia [...] ? Electronically signed by: Jose Gallegos MD, [facility] ([phone]), at 09/28/2022 4:58 PM Narrative 09/28/2022 4:58 [...] first. Electronically signed by: Jose Gallegos MD, [facility]([phone]), at 09/28/2022 4:58 PM Susannah Gómez MD IM CT ORDERABLES * (ABNORMAL) Troponin (09/28/2022 6:56 AM EDT) [facility] Signature Troponin-T, High Sensitivity 21(H) <=14 ng/L [facility] Comment: This patient's troponin T [...] can be found in the [facility] Test Catalog Troponin - [facility] Test Catalog Reference: Fourth [place] Definition of Myocardial Infarction. Journal of the [place] College [employer] 2018;72:9130-0940 Blood 09/28/2022 6:56 AM EDT 09/28/2022 7:01 AM EDT Narrative Resulting Agency Comment Spec In Lab Susannah Gómez MD CHEMISTRY ORDERABLES Performing Organization Address City/State/[facility] Co de Phone Number [facility] [place] [address] * Differential, Automated (09/28/2022 3:49 AM EDT) Neutrophil % 45.9 % [facility] Neutrophil Absolute 2.92 1.70 - 6.10 x10(3)/[facility] Lymph % 40.5 % [facility] Lymphocytes Abs 2.6 0.9 - 3.2 x10(3)/[facility] Monocyte % 8.9 % [facility] Monocyte Abs 0.6 0.3 - 0.9 x10(3)/[facility] Eos % 3.3 % [facility] Eosinophils Abs 0.2 0.0 - 0.4 x10(3)/[facility] Basophil % 1.1 % [facility] Baso Absolute 0.1 0.0 - 0.1 x10(3)/[facility] Immature Gran % 0.30 % [facility] Comment: Immature granulocytes(IG's)percentage and absolute count will include metamyelocytes, myelocytes, and promyelocytes. Blood smears from CBCs yielding IG's will be scanned manually for concordance. If this scan disagrees with the automated IG or if promyelocytes are noted, a manual differential will be performed. Immature Gran Absolute 0.02 0.00 - 0.04 x10(3)/[facility] Blood 09/28/2022 3:49 AM EDT 09/28/2022 4:11 AM EDT Narrative Resulting Agency Comment Spec In Lab Vimal Holman MD HEMATOLOGY ORDERABLE S [facility] [place] [address] * (ABNORMAL) Hemogram (09/28/2022 3:49 AM EDT) [facility] White Blood Cell 6.4 4.0 - 9.5 x10(3)/mc L [facility] Red Blood Cell 4.37 4.00 - 5.21 x10(6)/mc L [facility] Hemoglobin 13.7 11.7 - 15.5 g/dL [facility] Hematocrit 41.6 35.7 - 45.8 % [facility] Mean Cell Volume 95.2(H) 82.6 - 94.4 fL [facility] Mean Cell Hemoglobin 31.4 27.1 - 32.0 pg [facility] Mean Cell Hemoglobin Concentration 32.9 31.7 - 35.0 g/dL [facility] Platelet 224 145 - 357 x10(3)/mc L [facility] RDW Standard Deviation 43.1 37.0 - 46.0 fL [facility] RDW coefficient of variation 12.3 11.5 - 14.1 % [facility] Mean Platelet Volume 11.3 7.6 - 12.9 fL [facility] NRBC% auto 0.0 % [facility] NRBC Absolute 0.000 0.000 - 0.000 x10(3)/mc L [facility] Blood 09/28/2022 3:49 AM EDT 09/28/2022 4:11 AM EDT Narrative Resulting Agency Comment Spec In Lab Vimal Holman MD HEMATOLOGY ORDERABLE S [facility] [place] [address] * (ABNORMAL) Troponin (09/28/2022 3:49 AM EDT) [facility] Troponin-T, High Sensitivity 25(H) <=14 ng/L [facility] Comment: This patient's troponin T [...] can be found in the [facility] Test Catalog Troponin - [facility] Test Catalog Reference: Fourth [place] Definition of Myocardial Infarction. Journal of the [place] College of Cardiology 2018;72:7629-2704 Blood 09/28/2022 3:49 AM EDT 09/28/2022 4:11 AM EDT Narrative Resulting Agency Comment Spec In Lab Susannah Gómez MD CHEMISTRY ORDERABLES Performing Organization Address City/State/[facility] Co de Phone Number [facility] [place] [address] * (ABNORMAL) Basic Metabolic Panel (non-fasting) (09/28/2022 3:49 AM EDT) Pathologist [facility] Glucose 97 65 - 199 mg/dL [facility] Comment:Diabetes: >=200 mg/d L plus symptoms Blood Urea Nitrogen 26(H) 8 - 18 mg/dL [facility] Creatinine 1.01 0.70 - 1.20 mg/dL [facility] Sodium 137 135 - 145 mmol/L [facility] Potassium 4.4 3.5 - 5.0 mmol/L [facility] Comment: Please note: ??Patients with WBC >100,000 may have falsely elevated Potassium levels. ??For accurate Potassium quantification in these patients send serum separator tube (gold top) for subsequent determinations. ??Contact the Clinical Chemistry Laboratory if there are any questions. Chloride 108(H) 98 - 107 mmol/L [facility] Carbon Dioxide 18(L) 22 - 31 mmol/L [facility] Anion Gap 11 5 - 15 mmol/L [facility] Calcium 9.0 8.5 - 10.5 mg/dL [facility] Est Glomerular Filtration Rate 67 >=60 mL/min/1. 73 m?? [facility] Comment: This patient's estimated GFR [...] In Lab Susannah Gómez MD CHEMISTRY ORDERABLES [facility] [place] [address] * XR Chest One View (09/28/2022 3:37 [...] ? Electronically signed by: Elina Valdez MD, [facility] ??([phone]), at 09/28/2022 8:27 AM Narrative 09/28/2022 8:27 [...] first. Electronically signed by: Elina Valdez MD, [facility]([phone]), at 09/28/2022 8:27 AM Susannah Gómez MD IMG DX ORDERABLES * EKG 12 Lead (09/28/2022 3:11 AM EDT) Ventricular rate 45 BPM MUSE SYSTEM Atrial Rate 45 BPM MUSE SYSTEM P-R Interval 196 ms MUSE SYSTEM QRS Duration 90 ms MUSE SYSTEM Q-T Interval 554 ms MUSE SYSTEM QTC Calculated (Bezet) 479 ms MUSE SYSTEM Calculated P Montgomery 33 degrees MUSE SYSTEM Calculated R Montgomery 28 degrees MUSE SYSTEM Calculated T Montgomery 58 degrees MUSE SYSTEM INTERPRETATION Sinus bradycardia Nonspecific ST and T wave abnormality Abnormal ECG When compared with ECG of 26-SEP-2022 17:33, QT has lengthened Confirmed by fellow Vaishnavi Pratt ([id number]) on 09/28/2022 9:30:13 AM Confirmed by MD [...] 1970 ? Height: 163 cm ? Account: [id number] Age: 52 yrs ? Weight: 102 kg Gender: Female ?BSA: 2.1 m2 Ordering Physician: SUSANNAH GÓMEZ Referring Physician: SUSANNAH GÓMEZ Performed By: HAIM Arnold Reason For Study: NSTEMI Exam Location: [facility]. Interpretation Summary - Left ventricular systolic function [...] 12/31/21, there is no significant change. Procedure Complete-[id number]. Image enhancement Optison was used for left [...] Location: : 1970 Height: 163 cm Account: [id number] Age: 52 yrs Weight: 102 kg Gender: Female BSA: 2.1 m2 Ordering Physician: SUSANNAH GÓMEZ Referring Physician: SUSANNAH GÓMEZ Performed By: HAIM Arnold Reason For Study: NSTEMI Exam Location: [facility]. Interpretation Summary - Left ventricular systolic function [...] on 12/31/21, there is nosignificant change. Procedure Complete-[id number]. Image enhancement Optison was used for left [...] 3:07 AM EDT) Neutrophil % 49.4 % [facility] Neutrophil Absolute 3.02 1.70 - 6.10 x10(3)/[facility] Lymph % 36.4 % [facility] Lymphocytes Abs 2.2 0.9 - 3.2 x10(3)/[facility] Monocyte % 10.3 % [facility] Monocyte Abs 0.6 0.3 - 0.9 x10(3)/[facility] Eos % 3.0 % [facility] Eosinophils Abs 0.2 0.0 - 0.4 x10(3)/[facility] Basophil % 0.7 % [facility] Baso Absolute 0.0 0.0 - 0.1 x10(3)/[facility] Immature Gran % 0.20 % [facility] Comment: Immature granulocytes(IG's)percentage and absolute count will include metamyelocytes, myelocytes, and promyelocytes. Blood smears from CBCs yielding IG's will be scanned manually for concordance. If this scan disagrees with the automated IG or if promyelocytes are noted, a manual differential will be performed. Immature Gran Absolute 0.01 0.00 - 0.04 x10(3)/[facility] Blood 09/27/2022 3:07 AM EDT 09/27/2022 3:18 AM EDT Narrative Resulting Agency Comment Spec In Lab Vimal Holman MD HEMATOLOGY ORDERABLE S [facility] [place] [address] * (ABNORMAL) Hemogram (09/27/2022 3:07 AM EDT) Pathologist [facility] White Blood Cell 6.1 4.0 - 9.5 x10(3)/mc L [facility] Red Blood Cell 4.20 4.00 - 5.21 x10(6)/mc L [facility] Hemoglobin 13.3 11.7 - 15.5 g/dL [facility] Hematocrit 40.9 35.7 - 45.8 % [facility] Mean Cell Volume 97.4(H) 82.6 - 94.4 fL [facility] Mean Cell Hemoglobin 31.7 27.1 - 32.0 pg [facility] Mean Cell Hemoglobin Concentration 32.5 31.7 - 35.0 g/dL [facility] Platelet 223 145 - 357 x10(3)/mc L [facility] RDW Standard Deviation 45.0 37.0 - 46.0 fL [facility] RDW coefficient of variation 12.7 11.5 - 14.1 % [facility] Mean Platelet Volume 10.5 7.6 - 12.9 fL [facility] NRBC% auto 0.0 % [facility] NRBC Absolute 0.000 0.000 - 0.000 x10(3)/mc L [facility] Blood 09/27/2022 3:07 AM EDT 09/27/2022 3:18 AM EDT Narrative Resulting Agency Comment Spec In Lab Vimal Holman MD HEMATOLOGY ORDERABLE S [facility] [place] [address] * (ABNORMAL) Troponin (09/27/2022 3:07 AM EDT) [facility] Troponin-T, High Sensitivity 30(H) <=14 ng/L [facility] Comment: This patient's troponin T [...] can be found in the [facility] Test Catalog Troponin - [facility] Test Catalog Reference: Fourth [place] Definition of Myocardial Infarction. Journal of the [place] College [employer]iology 2018;72:4289-7864 Blood 09/27/2022 3:07 AM EDT 09/27/2022 3:18 AM EDT Narrative Resulting Agency Comment Spec In Lab Susannah Gómez MD CHEMISTRY ORDERABLES [facility] [place] [address] * (ABNORMAL) Basic Metabolic Panel (non-fasting) (09/27/2022 3:07 AM EDT) Pathologist [facility] Glucose 88 65 - 199 mg/dL [facility] Comment:Diabetes: >=200 mg/d L plus symptoms Blood Urea Nitrogen 31(H) 8 - 18 mg/dL [facility] Creatinine 1.19 0.70 - 1.20 mg/dL [facility] Sodium 138 135 - 145 mmol/L [facility] Potassium 4.3 3.5 - 5.0 mmol/L [facility] Comment: Please note: ??Patients with WBC >100,000 may have falsely elevated Potassium levels. ??For accurate Potassium quantification in these patients send serum separator tube (gold top) for subsequent determinations. ??Contact the Clinical Chemistry Laboratory if there are any questions. Chloride 108(H) 98 - 107 mmol/L [facility] Carbon Dioxide 18(L) 22 - 31 mmol/L [facility] Anion Gap 12 5 - 15 mmol/L [facility] Calcium 8.9 8.5 - 10.5 mg/dL [facility] Est Glomerular Filtration Rate 55(L) >=60 mL/min/1. 73 m?? [facility] Comment: This patient's estimated GFR [...] In Lab Susannah Gómez MD CHEMISTRY ORDERABLES [facility] [place] [address] * Hemoglobin A1c (09/27/2022 3:07 AM EDT) Hemoglobin A1c 5.6 4.3 - 5.6 % [facility] Comment: Reference Range: 4.3 - [...] Mellitus, Diabetes Care 2013; 36: Suppl. 1, T72-56 Estimated Average Glucose 114 mg/dL [facility] Comment: eAG equivalents for HbA1c [...] into estimated average glucose values. ??Diabetes Care 2008:31(8):8952-8487. Blood 09/27/2022 3:07 AM EDT 09/27/2022 3:18 AM EDT Narrative Resulting Agency Comment Spec In Lab Susannah Gómez MD CHEMISTRY ORDERABLES [facility] [place] [address] * Lipid Panel (Reflex Direct LDL) (09/27/2022 3:07 AM EDT) Cholesterol, Total 228 mg/dL [facility] Comment: Lower Risk: <200 mg/dL Average Risk: 200-239 mg/dL Higher Risk: >hy=645 mg/dL Triglyceride 221 mg/dL [facility] Comment: Average Risk/Lower Risk: <150 mg/dL Borderline High Risk: 150-199 mg/dL High Risk: 200-499 mg/dL Very High Risk: >rg=192 mg/dL HDL Cholesterol 33 mg/dL [facility] Comment: Males: ?? Higher Risk: <40 mg/dL Females: ?? Higher Risk: <50 mg/dL LDL Cholesterol 151 mg/dL [facility] Comment: Lowest Risk: <100 mg/dL Lower Risk: 100-129 mg/dL Borderline High Risk: 130-159 mg/dL High Risk: 160-189 mg/dL Very High Risk: >pi=273 mg/dL Cholesterol/HDL Ratio 6.9 ratio [facility] Lipid Interpretation See Note [facility] Comment: Lipid management should be guided by a patient? s ASCVD risk, goals and preferences. ACC/AHA Guidelines recommend high intensity statin if clinical ASCVD or LDL greater than or equal to 190 mg/dL. http://[employer]/TBG-ZLX-Gtaucwyxn Adults aged 40-75 with LDL 70-189 mg/dL should have their 10 year ASCVD risk estimated with the ACC/AHA ASCVD risk fabric and accessories estimator http://tools.acc.org/OVYTD-Cycf-Etkbixvef/ Statin should be discussed if risk greater [...] Gómez MD CHEMISTRY ORDERABLES Performing Organization Address City/State/[facility] Co de Phone Number [facility] [place] [address] * (ABNORMAL) Troponin (09/26/2022 8:55 PM EDT) Troponin-T, High Sensitivity 35(H) <=14 ng/L [facility] Comment: This patient's troponin T [...] can be found in the [facility] Test Catalog Troponin - [facility] Test Catalog Reference: Fourth [place] Definition of Myocardial Infarction. Journal of the [place] College [employer]iology 2018;72:7870-2234 Blood 09/26/2022 8:55 PM EDT 09/26/2022 8:59 PM EDT Narrative Resulting Agency Comment Spec In Lab Susannah Gómez MD CHEMISTRY ORDERABLES Performing Organization Address City/[facility]/ZIP Co de Phone Number [facility] [place] [address] * Gold Tube HOLD (09/26/2022 5:50 PM EDT) Gold Hold Sample in lab. [facility] Blood Venous Draw / Unknown 09/26/2022 5:50 PM EDT 09/26/2022 6:13 PM EDT Vimal Holman MD CHEMISTRY ORDERABLES [facility] [place] [address] * Differential, Automated (09/26/2022 5:50 PM EDT) Neutrophil % 53.9 % [facility] Neutrophil Absolute 2.93 1.70 - 6.10 x10(3)/[facility] Lymph % 34.3 % [facility] Lymphocytes Abs 1.9 0.9 - 3.2 x10(3)/[facility] Monocyte % 8.3 % [facility] Monocyte Abs 0.4 0.3 - 0.9 x10(3)/[facility] Eos % 2.4 % [facility] Eosinophils Abs 0.1 0.0 - 0.4 x10(3)/[facility] Basophil % 0.7 % [facility] Baso Absolute 0.0 0.0 - 0.1 x10(3)/[facility] Immature Gran % 0.40 % [facility] Comment: Immature granulocytes(IG's)percentage and absolute count will include metamyelocytes, myelocytes, and promyelocytes. Blood smears from CBCs yielding IG's will be scanned manually for concordance. If this scan disagrees with the automated IG or if promyelocytes are noted, a manual differential will be performed. Immature Gran Absolute 0.02 0.00 - 0.04 x10(3)/[facility] Blood 09/26/2022 5:50 PM EDT 09/26/2022 6:12 PM EDT Narrative Resulting Agency Comment Spec In Lab Vimal Holman MD HEMATOLOGY ORDERABLE S Performing Organization Address City/State/[facility] Co de Phone Number [facility] [place] [address] * Hemogram (09/26/2022 5:50 PM EDT) White Blood Cell 5.4 4.0 - 9.5 x10(3)/[facility] LABORATORY Red Blood Cell 4.58 4.00 - 5.21 x10(6)/[facility] LABORATORY Hemoglobin 14.5 11.7 - 15.5 g/dL [facility] Hematocrit 42.4 35.7 - 45.8 % [facility] Mean Cell Volume 92.6 82.6 - 94.4 fL [facility] Mean Cell Hemoglobin 31.7 27.1 - 32.0 pg [facility] Mean Cell Hemoglobin Concentration 34.2 31.7 - 35.0 g/dL [facility] Platelet 182 145 - 357 x10(3)/[facility] LABORATORY RDW Standard Deviation 43.2 37.0 - 46.0 fL [facility] RDW coefficient of variation 12.6 11.5 - 14.1 % [facility] Mean Platelet Volume 11.3 7.6 - 12.9 fL [facility] NRBC% auto 0.0 % [facility] ITAL LABORAT[facility] NRBC Absolute 0.000 0.000 - 0.000 x10(3)/mcL [facility] Blood 09/26/2022 5:50 PM EDT 09/26/2022 6:12 PM EDT Narrative Resulting Agency Comment Spec In Lab Vimal Holman MD HEMATOLOGY ORDERABLE S [facility] [place] [address] * (ABNORMAL) Basic Metabolic Panel (non-fasting) (09/26/2022 5:50 PM EDT) Glucose 81 65 - 199 mg/dL [facility] Comment:Diabetes: >=200 mg/d L plus symptoms Blood Urea Nitrogen 28(H) 8 - 18 mg/dL [facility] Creatinine 1.02 0.70 - 1.20 mg/dL [facility] Sodium 140 135 - 145 mmol/L [facility] Potassium 4.2 3.5 - 5.0 mmol/L [facility] Comment: Please note: ??Patients with WBC >100,000 may have falsely elevated Potassium levels. ??For accurate Potassium quantification in these patients send serum separator tube (gold top) for subsequent determinations. ??Contact the Clinical Chemistry Laboratory if there are any questions. Chloride 108(H) 98 - 107 mmol/L [facility] Carbon Dioxide 19(L) 22 - 31 mmol/L [facility] Anion Gap 13 5 - 15 mmol/L [facility] Calcium 9.0 8.5 - 10.5 mg/dL [facility] Est Glomerular Filtration Rate 66 >=60 mL/min/1. 73 m?? [facility] Comment: This patient's estimated GFR [...] In Lab Susannah Gómez MD CHEMISTRY ORDERABLES [facility] [place] [address] * Magnesium (09/26/2022 5:50 PM EDT) Magnesium 0.89 0.69 - 1.07 mmol/L [facility] Blood 09/26/2022 5:50 PM EDT 09/26/2022 6:12 PM EDT Narrative Resulting Agency Comment Spec In Lab Susannah Gómez MD CHEMISTRY ORDERABLES Performing Organization Address [facility] Co de Phone Number [facility] [place] [address] * Calcium (09/26/2022 5:50 PM EDT) Calcium 9.0 8.5 - 10.5 mg/dL [facility] Blood 09/26/2022 5:50 PM EDT 09/26/2022 6:12 PM EDT Narrative Resulting Agency Comment Spec In Lab Susannah Gómez MD CHEMISTRY ORDERABLES Performing Organization Address City/[facility] Co de Phone Number [facility] [place] [address] * (ABNORMAL) Prothrombin Time (09/26/2022 5:50 PM EDT) Prothrombin Time 14.3(H) 9.4 - 12.5 sec [facility] International Normalization Ratio 1.3 [facility] Comment: An INR <2.0 indicates [...] Organization Address City/[facility]/ZIP Co de Phone Number [facility] [place] [address] * (ABNORMAL) APTT (09/26/2022 5:50 PM EDT) Partial Thromboplastin Time 39(H) 25 - 37 sec [facility] Comment: The PTT is NOT appropriate for heparin monitoring. Use the Anti-Xa level for heparin monitoring (HEP UFH) or LMWH monitoring (HEP LMW). A PTT less than 37 seconds generally indicates adequate hemostasis. Blood 09/26/2022 5:50 PM EDT 09/26/2022 6:12 PM EDT Narrative Resulting Agency Comment Spec In Lab Susannah Gómez MD HEMATOLOGY ORDERABLE S Performing Organization Address [facility]/ZIP Co de Phone Number [facility] [place] [address] * (ABNORMAL) pro-Brain Natriuretic Peptide (09/26/2022 5:50 PM EDT) NT-proBNP 1,069(H) <=124 pg/mL [facility] Blood 09/26/2022 5:50 PM EDT 09/26/2022 6:12 PM EDT Narrative Resulting Agency Comment Spec In Lab Susannah Gómez MD CHEMISTRY ORDERABLES Performing Organization Address City/[facility]/ZIP Co de Phone Number [facility] [place] [address] * TSH (09/26/2022 5:50 PM EDT) Thyroid Stimulating Hormone 3.02 0.27 - 4.20 mcIU/mL [facility] Comment: Reference Interval (mcIU/mL): Females: ??First Trimester: 0.23-3.88 ??Second Trimester: 0.22-3.90 ??Third Trimester: 0.44-4.66 Blood 09/26/2022 5:50 PM EDT 09/26/2022 6:12 PM EDT Narrative Resulting Agency Comment Spec In Lab Susannah Gómez MD CHEMISTRY ORDERABLES [facility] [place] [address] * EKG 12 Lead (09/26/2022 5:33 PM EDT) Ventricular rate 54 BPM MUSE SYSTEM Atrial Rate 54 BPM MUSE SYSTEM P-R Interval 180 ms MUSE SYSTEM QRS Duration 84 ms MUSE SYSTEM Q-T Interval 438 ms MUSE SYSTEM QTC Calculated (Bezet) 415 ms MUSE SYSTEM Calculated P [place] 20 degrees MUSE SYSTEM Calculated R [place] 21 degrees MUSE SYSTEM Calculated T [place] -28 degrees MUSE SYSTEM INTERPRETATION Sinus bradycardia [...] PM EDT) C-Reactive Protein <3.0 <=4.9 mg/L [facility] Blood Venous Draw / Unknown 09/26/2022 5:01 PM EDT 09/26/2022 5:33 PM EDT Narrative Resulting Agency Comment Spec In Lab Paulo Ramachandran Jr., MD CHEMISTRY ORDE KRIS Performing Organization Address City/[facility]/ZIP Co de Phone Number [facility] [place] [address] * (ABNORMAL) Troponin (09/26/2022 5:01 PM EDT) Troponin-T, High Sensitivity 29(H) <=14 ng/L [facility] Comment: This patient's troponin T [...] can be found in the [facility] Test Catalog Troponin - [facility] Test Catalog Reference: Fourth [place] Definition of Myocardial Infarction. Journal of the [place] [employer] 2018;72:3236-3659 Blood 09/26/2022 5:01 PM EDT 09/26/2022 5:12 PM EDT Narrative Resulting Agency Comment Spec In Lab Susannah Gómez MD CHEMISTRY ORDERABLES Performing Organization Address City/[facility]/ZIP Co de Phone Number [facility] [place] [address] documented in this encounter Visit Diagnoses Diagnosis [...] Routine documented in this encounter Care Teams Analysis Director Relationship Specialty Start Date End Date Polo Pearce PA [address] [place] [address] PCP - General Internal Medicine 06/09/21 documented as of this encounter
--- OUTSIDE RECORDS SUMMARY | 2024-01-24 21:13 | XMS_ITS | Encounter Summary ---
Author Organization [facility] [place] [address] Care Team Providers Care Skin Specialist Name Role Phone Polo Pearce Primary Care Provider [phone] Encounter Details Date Type Department Care Team (Late st Contact Info) Description 10/20/2022 Telephone Cardiology at [address] [address] Gianna Day RN Social History [...] PM EST Office Visit Cardiology at [address] [address] Jaspreet Kinsey MD [facility] [place] [address] documented as of this encounter Visit Diagnoses Not on filedocumented in this encounter Care Teams Skin Specialist Relationship Specialty Start Date End Date Polo Pearce PA [address] [place] [address] PCP - General Internal Medicine 06/09/21 documented as of this encounter
--- OUTSIDE RECORDS SUMMARY | 2024-01-24 21:13 | XMS_ITS | Encounter Summary ---
[place] [address] Care Team Providers Care Registrar Assistant Name Role Phone Polo Pearce Primary Care Provider [phone] Reason for Visit * Auth/Cert (Routine) Specialty Diagnoses / Procedures Referred By Contac t Referred To Contact Diagnoses NSTEMI (non-ST elevated myocardial infarction) NSTEMI Procedures EMERGENCY MICHELLEI Willy Gómez MD [facility] [place] [address] [facility] Referral ID Status Reason Start Date Expiration Date Visits Re quested Visits Authorized [id number] 1 Encounter Details Date Type Department Care Team (Latest Contact Info) Description 09/27/2022 6:50 AM EDT - 09/27/2022 11:59 PM EDT Hospital Encounter Non[place] [address] Discharge Disposition: Home Social History Tobacco Use [...] as needed. fluticasone propionate (FLONASE) 50 mcg/actuation [place], Suspension 1 spray by Each Nare route [...] PM EST Office Visit Cardiology at [address] [place] [phone] Jaspreet Kinsey MD [facility] [place] [address] documented as of this encounter Procedures Procedure [...] mLs documented in this encounter Care Teams Registrar Assistant Relationship Specialty Start Date End Date Polo Pearce PA [address] [place] [address] PCP - General Internal Medicine 06/09/21 documented as of this encounter
--- OUTSIDE RECORDS SUMMARY | 2024-01-24 21:13 | XMS_ITS | Encounter Summary ---
Author Organization [facility] Address [facility] [place] [address] Care Team Providers Care Ramp Attendant Name Role Phone Polo Pearce Primary Care Provider [phone] Encounter Details Date Type Department Care Team (Late st Contact Info) Description 02/16/2023 11:20 AM EST Office Visit Cardiology at [address] [address] Jed Tovar MD [facility] [place] [address] PAF (paroxysmal atrial fibrillation); SVT (supraventricular tachycardia) Social History Tobacco Use Types Packs/Day Years Used Date Smoking Tobacco: Never Smokeless Tobacco: Never Alcohol Use Standard Drinks/Week Comments Never 0 (1 standard drink = 0.6 oz pur e alcohol) [facility] Utilities Answer Date Recorded In the past 12 months has [employer] electric, gas, oil, or water company threatened [...] Follow Up Patient ID Indira Roque [id number] Indira Roque is following up in EP clinic C/c: SVT History Ms. Roque is a 52 year old woman who is following up with me re SVT. 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 I have personally reviewed all [...] permanent pacemaker insertion, and the risk of stroke/GA/deathshould left-sided access be required) were reviewed in [...] 1:00 PM EST Office Visit Cardiology at [address] [place] [address] Jaspreet Kinsey MD [facility] [place] [address] documented as of this encounter Procedures Procedure [...] (Bezet) 511 ms MUSE SYSTEM Calculated P [place] 24 degrees MUSE SYSTEM Calculated R [place] 35 degrees MUSE SYSTEM Calculated T [place] 14 degrees MUSE SYSTEM INTERPRETATION Sinus bradycardia [...] dysrhythmias documented in this encounter Care Teams Ramp Attendant Relationship Specialty Start Date End Date Polo Pearce PA [address] [place] [address] PCP - General Internal Medicine 06/09/21 documented as of this encounter
--- OUTSIDE RECORDS SUMMARY | 2024-01-24 21:13 | XMS_ITS | Encounter Summary ---
Author Organization [facility] Address [facility] [place] [address] Care Team Providers Care Fast Food Attendant Name Role Phone Polo Pearce Primary Care Provider [phone] Encounter Details Date Type Department Care Team (Late st Contact Info) Description 09/26/2022 External [place] [address] Social History Tobacco Use Types Packs/Day Years [...] PM EST Office Visit Cardiology at [address] [address] Jaspreet Kinsey MD [facility] [place] [address] documented as of this encounter Procedures Procedure Name Priority Date/Time Associated Diagnosis Comments ECG SCAN Routine 09/26/2022 8:40 AM EDT documented in this encounter Results * Scan Doc: ECG (09/26/2022 8:40 AM EDT) Historical Provider MEDIA MGR SCAN EX T ORDR/RSLT documented in this encounter Visit Diagnoses Not on filedocumented in this encounter Care Teams Fast Food Attendant Relationship Specialty Start Date End Date Polo Pearce PA [address] [place] [address] PCP - General Internal Medicine 06/09/21 documented as of this encounter
--- OUTSIDE RECORDS SUMMARY | 2024-01-24 21:13 | XMS_ITS | Encounter Summary ---
[place] [address] Care Team Providers Care Pin Chaser Name Role Phone Polo Pearce Primary Care Provider [phone] Encounter Details Date Type Department Care Team (Late st Contact Info) Description 02/08/2023 [place] [phone] Unknown None Social History Tobacco Use Types Packs/Day Years Used Date Smoking Tobacco: Never Smokeless Tobacco: Never Alcohol Use Standard Drinks/Week Comments Never 0 (1 standard drink = 0.6 oz pur e alcohol) [facility] Utilities Answer Date Recorded In the past 12 months has e [employer], gas, oil, or water [employer] threatened to shut off services in [...] PM EST Office Visit Cardiology at [address] [address] Jaspreet Kinsey MD [facility] [place] [address] documented as of this encounter Procedures Procedure Name Priority Date/Time Associated Diagnosis Comments ECHOCARDIOGRAM TRANSTHORACIC Routine 02/08/2023 11:40 PM EST documented in this encounter Results * Echocardiogram Transthoracic (02/08/2023 11:40 PM EST) Anatomical Region Laterality Modality Cardiac Other 02/08/2023 11:4 0 PM EST Narrative 02/10/2023 3:09 PM EST [address] [place] [address] ? Echocardiogram Report Name: LOIDA ROQUE ?Study [...] without a pericardial effusion. Procedure Limited - 74465. Suboptimal quality. There is normal sinus rhythm. [...] Note Willy Gómez MD - 02/10/2023 [address] [place] [id number] Echocardiogram Report Name: LOIDA ROQUE Study Date: [...] without a pericardial effusion. Procedure Limited - 10023. Suboptimal quality. There is normal sinus rhythm. [...] filedocumented in this encounter Care Teams Pin Chaser Relationship Specialty Start Date End Date Polo Pearce PA [address] [place] [address] PCP - General Internal Medicine 06/09/21 documented as of this encounter
--- OUTSIDE RECORDS SUMMARY | 2024-01-24 21:13 | XMS_ITS | Encounter Summary ---
Author Organization [facility] [place] [address] Care Team Providers Care General Production Laborer Name Role Phone Polo Pearce Primary Care Provider [phone] Encounter Details Date Type Department Care Team (Late st Contact Info) Description 10/20/2022 Telephone Cardiology at [address] [address] Jaspreet Kinsey MD [facility] [address] Social History Tobacco Use Types Packs/Day Years [...] to update office that she was at [facility] this morning as a follow [...] PM EST Office Visit Cardiology at [address] [place] [address] Jaspreet Kinsey MD [facility] [address] documented as of this encounter Visit Diagnoses Not on filedocumented in this encounter Care Teams General Production Laborer Relationship Specialty Start Date End Date Polo Pearce PA [address] [place] [address] PCP - General Internal Medicine 06/09/21 documented as of this encounter
--- OUTSIDE RECORDS SUMMARY | 2024-01-24 21:13 | XMS_ITS | Encounter Summary ---
Author Organization [facility] [place] [address] Care Team Providers Care Moving Consultant Name Role Phone Polo Pearce Primary Care Provider [phone] Encounter Details Date Type Department Care Team (Late st Contact Info) Description 08/31/2022 Telephone Cardiology at [address] [address] Carrol La PA [facility] [place] [address] Social History Tobacco Use Types Packs/Day Years [...] PM Referring Provider: Dr. Evans Patient Location: [facility] Brief History Lyubov Roque is a 52 y.o female with PMH of HFpEF, SVT, PE on Eliquis, HLD who presented to the OSH with nausea, diffuse abdominal pain. Developed chest pain that OSH provider reports was LUQ pain under left breast. [place] like a sharp, intermittent squeeze. Patient is [...] was LUQ abdominal pain under left breast. [place] like a sharp, intermittent squeeze that resolved [...] 300's range on prior lab checks in [facility] system. ACS seems unlikely at this time based on my discussion with Dr. Evans as her symptoms seem GI in origin. This may represent a type II NSTEMI in setting of CATIE and acute GI illness. I recommended close follow up with Dr. Kinsey, primary curbstone setter who can consider stress testing. In addition, [...] in management. Carrol La PA-C Access Pager [phone] 08/31/2022 documented in this encounter Plan of Treatment Upcoming Encounters Date Type Department Care Team (Late st Contact Info) Description 02/10/2024 1:00 PM EST Office Visit Cardiology at [address] [place] [address] Jaspreet Kinsey MD [facility] [place] [address] documented as of this encounter Visit Diagnoses Not on filedocumented in this encounter Care Teams Moving Consultant Relationship Specialty Start Date End Date Polo Pearce PA [address] [place] [address] PCP - General Internal Medicine 06/09/21 documented as of this encounter
--- OUTSIDE RECORDS SUMMARY | 2024-01-24 21:14 | XMS_ITS | Encounter Summary ---
Author Organization [facility] [place] [address] Care Team Providers Care Facility Attendant Name Role Phone Polo Pearce Primary Care Provider [phone] Encounter Details Date Type Department Care Team (Late st Contact Info) Description 12/30/2021 8:00 PM EDT Ancillary Procedure Radiology Library at [facility] [place] [address] Jaspreet Kinsey MD [facility] [place] [address] Social History Tobacco Use Types Packs/Day Years [...] PM EST Office Visit Cardiology at [address] [place] [address] Jaspreet Kinsey MD [facility] [place] [address] documented as of this encounter Procedures Procedure [...] Kinsey MD [facility] [employer] ORD ERABLES [place], [place] documented in this encounter Visit Diagnoses Not on filedocumented in this encounter Care Teams Facility Attendant Relationship Specialty Start Date End Date Polo Pearce PA [address] [place] [address] PCP - General Internal Medicine 06/09/21 documented as of this encounter
--- OUTSIDE RECORDS SUMMARY | 2024-01-24 21:14 | XMS_ITS | Encounter Summary ---
Author Organization [place] [address] Care Team Providers Care Sprinkler Irrigation Equipment Mechanic Name Role Phone Polo Pearce Primary Care Provider [phone] Reason for Referral * Consultation (Routine) - Closed Specialty Diagnoses / Procedures Referred By Contact Referred To Contact Electrophysiology / Cardiology Diagnoses Supraventricular tachycardia evaluation for AVNRT ablation due to symptomatic SVT with myocardial injury Sandy Serna MD [facility] [place] [address] [facility] [address] [place] [phone] Referral ID Status Reason Start Date Expiration Date V isits Requested Visits Authorized [id number] Closed Consult, Test & Treat 06/14/2021 06/14/2022 1 1 Reason for Visit * Auth/Cert Specialty Diagnoses / Procedures Referred By Jayant harris Referred To Contact Diagnoses NSTEMI (non-ST elevated myocardial infarction) NSTEMI Procedures EMERGENCY IPI Referral ID Status Reason Start Date Expiration Date Visits Re quested Visits Authorized [id number] 1 1 Encounter Details Date Type Department Care Team (Latest Contact Info) Description 06/13/2021 12:35 PM EDT - 06/14/2021 1:22 PM EDT Hospital Encounter [place] [address] Jose Rodrigues MD [facility] [place] [address] Chest pain, unspecified type; Supraventricular tachycardia; Chest [...] depressions on EKG. Indira was transferred to [facility] for further evaluation. ?? Of note, the patient was just released from [facility] for chest pain on Wednesday06/09/2021. During that [...] consistent with myocardial injury pattern. [facility] was not pursued as the patient was CP free, has suspected microvascular disease from [facility] 18 months ago and episode was [...] 8:20 AM Jaspreet Kinsey MD Cardiology at [place] Arrive at: [facility] [address] [phone] Future Orders Complete By Expires NM PET CT Cardiac Pharmacologic Stress and Rest [[id number] Custom] 06/14/2021 10/14/2021 Process Instructions: Scheduling Instructions: Questions: Where will study be performed?: [facility] Radiology Reason for exam and clinical history: concern for microvascular disease vs CAD Clinical information / chavis questions for radiologist: Is the patient ?: No Initial treatment or subsequent treatment?: Stat read required?: Does patient require sedation?: GA rationale: Date of injury if applicable: Requested Time: NM PET CT Cardiac Pharmacologic Stress CT Component [[id number] Custom] 06/14/2021 10/14/2021 Process Instructions: Scheduling Instructions: Questions: Where will study be performed?: [facility] Radiology Reason for exam and clinical history: Study performed for attenuation correction of the stress test. Nuclear Pharmacologic Stress Cardiology (PET CT Mobile) [[id number] CPT(R)] 06/14/2021 10/14/2021 Process Instructions: Order [id number], NM myocardial perfussion scan, pharmacologic, should also be placed for the radiologyportion of the test. Scheduling Instructions: Cardiac perfusion (Stress and Lexiscan) - NPO after midnight, medication instructions per referringphysician. Avoidance of all caffeinated and decaffeinated products (No coffee, teas, chocolate, or cola drinks) for at least 12 hours prior to exam. Questions: Where will study be performed?: [facility] Clinics Does the patient have a device?: [...] Center 07/23/2021 8:20 AM Jaspreet Kinsey MD [facility] Cardio [facility] Your Inpatient Medical Team at [facility] Name(s) of your inpatient provider(s): Attending - Jose Rodrigues MD Fellow - Brody Bernard MD Resident - Sandy Serna MD Dry Goods Inspector - Sha Vale MD Your Primary Care Provider: JOCY Franco [phone] For questions regarding this document or issues relating to this hospitalization on the Medical Service, please contact your inpatient physician through the [facility] Dust Collector Attendant . Issues afterhours and on weekends will be handled by the Hospitalist staff on-call. For questions regarding this document or issues relating to this hospitalization on the Medical Service, please contact your inpatient physician through the [facility] Dust Collector Attendant . Issues afterhours and on weekends will be handled by the Air Traffic Control Manager staff on-call. Signed: Sandy Serna Internal Medicine PGY-3 Cardiovascular Medicine S2 Team Pager [phone] documented in this encounter Discharge Instructions * [...] Center 07/23/2021 8:20 AM Jaspreet Kinsey MD [facility] Cardio [facility] Your Inpatient Medical Team at [facility] Name(s) of your inpatient provider(s): Attending - Jose Rodrigues MD Fellow - Brody Bernard MD Resident - Sandy Serna MD Dry Goods Inspector - Sha Vale MD Your Primary Care Provider: JOCY Franco [phone] For questions regarding this document or issues relating to this hospitalization on the Medical Service, please contact your inpatient physician through the [facility] Dust Collector Attendant . Issues afterhours and on weekends will [...] as needed. fluticasone propionate (FLONASE) 50 mcg/actuation [place], Suspension 1 spray by Each Nare [...] as of this encounter Progress Notes * Katalnia Wilkinson RN - 06/14/2021 12:06 PM EDT [...] FORWARD: possible cardiac cath pain management monitor groundwater monitoring technician I/O discharge planning as appropriate [...] JOHN PCP: JOCY Franco PCP phone #: [phone] ID/Chief Complaint: Indira Roque is a 51 y.o. with hx of HFpEF, MARYLOU, who is admitted from [facility] run of SVT with associated chest pain [...] depressions on EKG. Indira was transferred to [facility] for further evaluation. Of note, the patient was just released from [facility] for chest pain on Wednesday06/09/2021. During that [...] DAILY ??? fluticasone propionate (FLONASE) 50 mcg/actuation [place], Suspension 1 spray, Each Nare, DAILY ??? [...] Rodrigues MD, FACC Section of Cardiovascular Medicine [facility] Bottlerchief transfer and pumphouse operator [facility] [employer] [facility] documented in this encounter Plan of Treatment Upcoming Encounters Date Type Department Care Team (Late st Contact Info) Description 02/10/2024 1:00 PM EST Office Visit Cardiology at [address] [place] [address] Jaspreet Kinsey MD [facility] [place] [address] Scheduled Referrals Name Type Priority Associated Diagnoses [...] Chest pain, unspecified type RAPID COVID-19 PCR ([facility]/APD/[facility]) Routine 06/13/2021 1:09 PM EDT documented in this encounter Results * Magnesium (06/14/2021 5:13 AM EDT) Magnesium 0.90 0.69 - 1.07 mmol/L [facility] Blood Venous Draw / Unknown 06/14/2021 5:13 AM EDT 06/14/2021 5:25 AM EDT Narrative Resulting Agency Comment Spec In Lab Sandy Serna MD CHEMISTRY ORDER ARABELLA Performing Organization Address [facility] Co de Phone Number [facility] [place] [address] * (ABNORMAL) Troponin (06/14/2021 5:13 AM EDT) Troponin-T 0.04(H) 0.00 - 0.00 ng/mL [facility] Comment: The 99th percentile [...] ischemia ?? New or presumed new significant IS-gdmnmjw-I wave (ST-T) changes or new left bundle [...] additional sample may be indicated. Reference: Third [place] Definition of Myocardial Infarction. Journal of the [place] [employer] 2012;60:1581-98 Blood 06/14/2021 5:13 AM EDT 06/14/2021 5:19 AM EDT Narrative Resulting Agency Comment Spec In Lab Jose Rodrigues MD CHEMISTRY ORDERABLES Performing Organization Address [facility] Co de Phone Number [facility] [place] [address] * Heparin (unfractionated) Level (06/14/2021 5:13 AM EDT) UF Heparin 0.66 IU/mL [facility] Comment: Heparin [...] Lab Jose Rodrigues MD HEMATOLOGY ORDERABLE S [facility] [place] [address] * Differential, Automated (06/14/2021 5:13 AM EDT) [facility] Neutrophil % 62.5 % [facility] Neutrophil Absolute 4.36 1.70 - 6.10 x10(3)/[facility]ORATORY Lymph % 24.1 % [facility] Lymphocytes Abs 1.7 0.9 - 3.2 x10(3)/[facility]ATORY Monocyte % 9.2 % [facility] Monocyte Abs 0.6 0.3 - 0.9 x10(3)/[facility] Eos % 2.9 % [facility] Eosinophils Abs 0.2 0.0 - 0.4 x10(3)/[facility] Basophil % 1.0 % [facility] Baso Absolute 0.1 0.0 - 0.1 x10(3)/[facility] Immature Gran % 0.30 % [facility] Comment: Immature granulocytes(IG's)percentage and absolute count will include metamyelocytes, myelocytes, and promyelocytes. Blood smears from CBCs yielding IG's will be scanned manually for concordance. If this scan disagrees with the automated IG or if promyelocytes are noted, a manual differential will be performed. Immature Gran Absolute 0.02 0.00 - 0.04 x10(3)/mcL [facility] Blood 06/14/2021 5:13 AM EDT 06/14/2021 5:19 AM EDT Narrative Resulting Agency Comment Spec In Lab Sha Vale MD HEMATOLOGY ORDERABLE S [facility] [place] [address] * (ABNORMAL) Hemogram (06/14/2021 5:13 AM EDT) White Blood Cell 7.0 4.0 - 9.5 x10(3)/mc L [facility] Red Blood Cell 4.94 4.00 - 5.21 x10(6)/mc L [facility] Hemoglobin 15.2 11.7 - 15.5 g/dL [facility] Hematocrit 46.5(H) 35.7 - 45.8 % [facility] Mean Cell Volume 94.1 82.6 - 94.4 fL [facility] Mean Cell Hemoglobin 30.8 27.1 - 32.0 pg [facility] Mean Cell Hemoglobin Concentration 32.7 31.7 - 35.0 g/dL [facility] Platelet 252 145 - 357 x10(3)/mc L [facility] RDW Standard Deviation 48.5(H) 37.0 - 46.0 fL [facility] RDW coefficient of variation 14.2(H) 11.5 - 14.1 % [facility] Mean Platelet Volume 10.4 7.6 - 12.9 fL [facility] NRBC% auto 0.0 % [facility] NRBC Absolute 0.000 0.000 - 0.000 x10(3)/mc L [facility] Blood 06/14/2021 5:13 AM EDT 06/14/2021 5:19 AM EDT Narrative Resulting Agency Comment Spec In Lab Sha Vale MD HEMATOLOGY ORDERABLE S [facility] [place] [address] * (ABNORMAL) Basic Metabolic Panel (non-fasting) (06/14/2021 5:13 AM EDT) Glucose 98 65 - 199 mg/dL [facility] Comment:Diabetes: >=200 mg/d L plus symptoms Blood Urea Nitrogen 21(H) 8 - 18 mg/dL [facility] Creatinine 0.80 0.70 - 1.20 mg/dL [facility] Sodium 138 135 - 145 mmol/L [facility] Potassium 4.2 3.5 - 5.0 mmol/L [facility] Comment: Please note: ??Patients with WBC >100,000 may have falsely elevated Potassium levels. ??For accurate Potassium quantification in these patients send serum separator tube (gold top) for subsequent determinations. ??Contact the Clinical Chemistry Laboratory if there are any questions. Chloride 106 98 - 107 mmol/L [facility] Carbon Dioxide 19(L) 22 - 31 mmol/L [facility] Anion Gap 13 5 - 15 mmol/L [facility] Calcium 9.0 8.5 - 10.5 mg/dL [facility] Est Glomerular Filtration Rate 85 >=60 mL/min/1. 73 m?? [facility] Comment: This patient? s estimated [...] In Lab Jose Rodrigues MD CHEMISTRY ORDERABLES [facility] [place] [address] * (ABNORMAL) Troponin (06/13/2021 9:41 PM EDT) Pathologist [facility] Troponin-T 0.04(H) 0.00 - 0.00 ng/mL [facility] Comment: The 99th percentile [...] ischemia ?? New or presumed new significant TP-cokscte-X wave (ST-T) changes or new left bundle [...] additional sample may be indicated. Reference: Third [place] Definition of Myocardial Infarction. Journal of the [employer] 2012;60:1581-98 Blood 06/13/2021 9:41 PM EDT 06/13/2021 9:55 PM EDT Narrative Resulting Agency Comment Spec In Lab Jose Rodrigues MD CHEMISTRY ORDERABLES Performing Organization Address [facility] Co de Phone Number [facility] [place] [address] * Heparin (unfractionated) Level (06/13/2021 9:41 PM EDT) UF Heparin 0.33 IU/mL [facility] Comment: Heparin [...] MD HEMATOLOGY ORDERABLE S Performing Organization Address [facility] Co de Phone Number [facility] [place] [address] * XR Chest PA & Lateral (Generic) [...] who have questions please contact the health hourly caregiver that requested your imaging first. ? Electronically signed by: ZENAIDA TAVARES [facility] ([phone]), at 06/14/2021 8:08 AM Narrative 06/14/2021 8:08 [...] patients who have questions please contactthe health hourly caregiver that requested your imaging first. Electronically signed by: ZENAIDA TAVARES [facility] ([phone]),at 06/14/2021 8:08 AM Jose Rodrigues MD IMG DX ORDERABLES * (ABNORMAL) Troponin (06/13/2021 6:40 PM EDT) Troponin-T 0.04(H) 0.00 - 0.00 ng/mL [facility] Comment: The 99th percentile [...] ischemia ?? New or presumed new significant JH-igaqlmh-A wave (ST-T) changes or new left bundle [...] additional sample may be indicated. Reference: Third [place] Definition of Myocardial Infarction. Journal of the [employer] 2012;60:1581-98 Blood 06/13/2021 6:40 PM EDT 06/13/2021 6:46 PM EDT Narrative Resulting Agency Comment Spec In Lab Jose Rodrigues MD CHEMISTRY ORDERABLES [facility] [place] [address] * T4, free (06/13/2021 3:26 PM EDT) Free T4 1.08 0.93 - 1.70 ng/dL [facility] Comment: Reference Interval (ng/dL): Females: ??First Trimester: 0.97-1.68 ??Second Trimester: 0.77-1.51 ??Third Trimester: 0.77-1.49 Blood 06/13/2021 3:26 PM EDT 06/13/2021 3:52 PM EDT Narrative Resulting Agency Comment Spec In Lab Sha Vale MD CHEMISTRY ORDERABLES Performing Organization Address City/[facility]/ZIP Co de Phone Number [facility] [place] [address] * Heparin (unfractionated) Level (06/13/2021 3:26 PM EDT) UF Heparin <0.04 IU/mL [facility] Comment: Specimen [...] MD HEMATOLOGY ORDERABLE S Performing Organization Address [facility]/ZIP Co de Phone Number [facility] [place] [address] * Bilirubin, Direct (06/13/2021 3:26 PM EDT) Bilirubin, Direct 0.1 0.0 - 0.3 mg/dL [facility] Blood Venous Draw / Unknown 06/13/2021 3:26 PM EDT 06/13/2021 3:39 PM EDT Narrative Resulting Agency Comment Spec In Lab Sha Vale MD CHEMISTRY ORDERABLES Performing Organization Address City/[facility]/ZIP Co de Phone Number [facility] [place] [address] * (ABNORMAL) Comprehensive metabolic panel (non-fasting) (06/13/2021 3:26 PM EDT) Glucose 77 65 - 199 mg/dL [facility] Comment:Diabetes: >=200 mg/d L plus symptoms Blood Urea Nitrogen 20(H) 8 - 18 mg/dL [facility] Creatinine 0.88 0.70 - 1.20 mg/dL [facility] Sodium 137 135 - 145 mmol/L [facility] Potassium 4.4 3.5 - 5.0 mmol/L [facility] Comment: Please note: ??Patients with WBC >100,000 may have falsely elevated Potassium levels. ??For accurate Potassium quantification in these patients send serum separator tube (gold top) for subsequent determinations. ??Contact the Clinical Chemistry Laboratory if there are any questions. Chloride 102 98 - 107 mmol/L [facility] Carbon Dioxide 17(L) 22 - 31 mmol/L [facility] Anion Gap 18(H) 5 - 15 mmol/L [facility] Calcium 9.2 8.5 - 10.5 mg/dL [facility] Protein, Total 7.4 6.1 - 8.0 g/dL [facility] Albumin 4.0 3.2 - 5.2 g/dL [facility] Aspartate Aminotransferase 44(H) 0 - 30 unit/L [facility] Alanine Aminotransferase 31(H) 0 - 30 unit/L [facility] Alkaline Phosphatase 70 35 - 105 unit/L [facility] Bilirubin, Total 0.4 0.2 - 1.3 mg/dL [facility] Est Glomerular Filtration Rate 76 >=60 mL/min/1. 73 m?? [facility] Comment: This patient? s estimated [...] Vale MD CHEMISTRY ORDERABLES Performing Organization Address City/[facility]/ZIP Co de Phone Number [facility] [place] [address] * (ABNORMAL) pro-Brain Natriuretic Peptide (06/13/2021 3:26 PM EDT) NT-proBNP 2,479(H) <=124 pg/mL [facility] Blood Venous Draw / Unknown 06/13/2021 3:26 PM EDT 06/13/2021 3:39 PM EDT Narrative Resulting Agency Comment Spec In Lab Sha Vale MD CHEMISTRY ORDERABLES Performing Organization Address [facility]/ZIP Co de Phone Number [facility] [place] [address] * Magnesium (06/13/2021 3:26 PM EDT) Magnesium 0.93 0.69 - 1.07 mmol/L [facility] Blood Venous Draw / Unknown 06/13/2021 3:26 PM EDT 06/13/2021 3:39 PM EDT Narrative Resulting Agency Comment Spec In Lab Sha Vale MD CHEMISTRY ORDERABLES Performing Organization Address City/[facility]/ZIP Co de Phone Number [facility] [place] [address] * Phosphorus (06/13/2021 3:26 PM EDT) Phosphorus 3.6 2.5 - 4.5 mg/dL [facility] Blood Venous Draw / Unknown 06/13/2021 3:26 PM EDT 06/13/2021 3:39 PM EDT Narrative Resulting Agency Comment Spec In Lab Sha Vale MD CHEMISTRY ORDERABLES Performing Organization Address [facility] Co de Phone Number [facility] [place] [address] * APTT (06/13/2021 3:26 PM EDT) Partial Thromboplastin Time 29 25 - 37 sec [facility] Comment: The PTT is NOT appropriate for heparin monitoring. Use the Anti-Xa level for heparin monitoring (HEP UFH) or LMWH monitoring (HEP LMW). A PTT less than 37 seconds generally indicates adequate hemostasis. Blood 06/13/2021 3:26 PM EDT 06/13/2021 3:36 PM EDT Narrative Resulting Agency Comment Spec In Lab Jose Rodrigues MD HEMATOLOGY ORDERABLE S Performing Organization Address [facility] Co de Phone Number [facility] [place] [address] * Prothrombin Time (06/13/2021 3:26 PM EDT) Prothrombin Time 12.4 9.4 - 12.5 sec [facility] International Normalization Ratio 1.1 [facility] Comment: An [...] MD HEMATOLOGY ORDERABLE S Performing Organization Address City/[facility]/ZIP Co de Phone Number [facility] [place] [address] * (ABNORMAL) TSH [place] (06/13/2021 3:26 PM EDT) [facility] Thyroid Stimulating Hormone 6.47(H) 0.27 - 4.20 mcIU/mL [facility] Comment: Reference Interval (mcIU/mL): Females: ??First Trimester: 0.23-3.88 ??Second Trimester: 0.22-3.90 ??Third Trimester: 0.44-4.66 Blood 06/13/2021 3:26 PM EDT 06/13/2021 3:37 PM EDT Narrative Resulting Agency Comment Spec In Lab Jose Rodrigues MD CHEMISTRY ORDERABLES [facility] [place] [address] * Differential, Automated (06/13/2021 3:26 PM EDT) [facility] Neutrophil % 64.4 % [facility] Neutrophil Absolute 4.05 1.70 - 6.10 x10(3)/[facility] Lymph % 22.6 % [facility] Lymphocytes Abs 1.4 0.9 - 3.2 x10(3)/[facility] Monocyte % 10.0 % [facility] Monocyte Abs 0.6 0.3 - 0.9 x10(3)/[facility] Eos % 1.8 % [facility] Eosinophils Abs 0.1 0.0 - 0.4 x10(3)/[facility] Basophil % 1.0 % [facility] Baso Absolute 0.1 0.0 - 0.1 x10(3)/[facility] Immature Gran % 0.20 % [facility] Comment: Immature granulocytes(IG's)percentage and absolute count will include metamyelocytes, myelocytes, and promyelocytes. Blood smears from CBCs yielding IG's will be scanned manually for concordance. If this scan disagrees with the automated IG or if promyelocytes are noted, a manual differential will be performed. Immature Gran Absolute 0.01 0.00 - 0.04 x10(3)/mcL [facility] Blood 06/13/2021 3:26 PM EDT 06/13/2021 3:37 PM EDT Narrative Resulting Agency Comment Spec In Lab Sha Vale MD HEMATOLOGY ORDERABLE S [facility] [place] [address] * (ABNORMAL) Hemogram (06/13/2021 3:26 PM EDT) White Blood Cell 6.3 4.0 - 9.5 x10(3)/[facility] Red Blood Cell 5.27(H) 4.00 - 5.21 x10(6)/[facility] Hemoglobin 16.1(H) 11.7 - 15.5 g/dL [facility] Hematocrit 49.7(H) 35.7 - 45.8 % [facility] Mean Cell Volume 94.3 82.6 - 94.4 fL [facility] Mean Cell Hemoglobin 30.6 27.1 - 32.0 pg [facility] Mean Cell Hemoglobin Concentration 32.4 31.7 - 35.0 g/dL [facility] Platelet 237 145 - 357 x10(3)/[facility] RDW Standard Deviation 49.1(H) 37.0 - 46.0 fL [facility] RDW coefficient of variation 14.2(H) 11.5 - 14.1 % [facility] Mean Platelet Volume 11.3 7.6 - 12.9 fL [facility] NRBC% auto 0.0 % [facility] NRBC Absolute 0.000 0.000 - 0.000 x10(3)/ L [facility] Blood 06/13/2021 3:26 PM EDT 06/13/2021 3:37 PM EDT Narrative Resulting Agency Comment Spec In Lab Sha Vale MD HEMATOLOGY ORDERABLE S Performing Organization Address [facility] Co de Phone Number [facility] [place] [address] * (ABNORMAL) Troponin (06/13/2021 3:26 PM EDT) Troponin-T 0.04(H) 0.00 - 0.00 ng/mL [facility] Comment: The 99th percentile [...] ischemia ?? New or presumed new significant BG-xcgvdzs-N wave (ST-T) changes or new left bundle [...] additional sample may be indicated. Reference: Third [place] Definition of Myocardial Infarction. Journal of the [employer] 2012;60:1581-98 Blood 06/13/2021 3:26 PM EDT 06/13/2021 3:37 PM EDT Narrative Resulting Agency Comment Spec In Lab Jose Rodrigues MD CHEMISTRY ORDERABLES Performing Organization Address [facility] Co de Phone Number [facility] [place] [address] * EKG 12 Lead (06/13/2021 2:18 PM EDT) Ventricular rate 48 BPM MUSE SYSTEM Atrial Rate 48 BPM MUSE SYSTEM P-R Interval 196 ms MUSE SYSTEM QRS Duration 84 ms MUSE SYSTEM Q-T Interval 498 ms MUSE SYSTEM QTC Calculated (Bezet) 444 ms MUSE SYSTEM Calculated P [place] 1 degrees MUSE SYSTEM Calculated R [place] 27 degrees MUSE SYSTEM Calculated T [place] -27 degrees MUSE SYSTEM INTERPRETATION Sinus bradycardia Nonspecific ST and T wave abnormality Abnormal ECG When compared with ECG of 07-JUN-2021 16:33, No significant change was found I personally reviewed the tracing and edited the fellows interpretation Confirmed by fellow Jaspreet Grimm ([id number]) on 06/16/2021 1:34:45 PM Confirmed by MD Angelo Danette ([id number]) on 06/16/2021 1:39:20 PM MUSE SYSTEM 06/13/2021 2:18 PM EDT 06/16/2021 1:39 PM EDT Jose Rodrigues MD ECG ORDERABLES MUSE SYSTEM * COVID-19 PCR (06/13/2021 1:09 PM EDT) Pathologist [facility] SARS-CoV-2 RNA (Rapid) Not Detected Not Detected [facility] Comment: This result should [...] using the Simplexa COVID-19 Direct Assay by [employer] as authorized by the FDA issued Emergency [...] fact sheets at the following FDA website: https://www.fda.gov/medical-devices/lihuwkkbgoz-dtiwkyj-4352-uwwzk-89-yughntygf- use-a sggrroktgvccs-uglvtbi-urwtpwm/mkgxp-lgdfpccmbwm-fdkl SARS-CoV-2 Source CANOE INSPECTOR Swab NE RY [facility] Nasopharyngeal Swab 06/14/19 1:09 PM EDT 06/13/2021 1:45 PM EDT Comment:Symptoms->Surveillan ce Narrative Resulting Agency Comment Spec In Lab Jose Rodrigues MD MICROBIOLOGY - GENER AL ORDERABLES [facility] [place] [address] documented in this encounter Visit Diagnoses Diagnosis [...] Routine documented in this encounter Care Teams Sprinkler Irrigation Equipment Mechanic Relationship Specialty Start Date End Date Polo Pearce PA [address] [place] [address] PCP - General Internal Medicine 06/09/21 documented as of this encounter
--- OUTSIDE RECORDS SUMMARY | 2024-01-24 21:14 | XMS_ITS | Encounter Summary ---
Author Organization [facility] Address [facility] [place] [address] Care Team Providers Care Personal Injury Specialist Name Role Phone Polo Pearce Primary Care Provider [phone] Encounter Details Date Type Department Care Team (Late st Contact Info) Description 12/30/2021 External Results [place] [address] Social History Tobacco Use Types Packs/Day Years [...] 1:00 PM EST Office Visit Cardiology at [address] [address] Jaspreet Kinsey MD [facility] [place] [address] documented as of this encounter Procedures Procedure Name Priority Date/Time Associated Diagnosis Comments ECG SCAN Routine 12/30/2021 documented in this encounter Results * Scan Doc: ECG (12/30/2021) Historical Provider MEDIA MGR SCAN EX T ORDR/RSLT documented in this encounter Visit Diagnoses Not on filedocumented in this encounter Care Teams Personal Injury Specialist Relationship Specialty Start Date End Date Polo Pearce PA [address] [place] [address] PCP - General Internal Medicine 06/09/21 documented as of this encounter
--- OUTSIDE RECORDS SUMMARY | 2024-01-24 21:14 | XMS_ITS | Encounter Summary ---
[place] [address] Care Team Providers Care Clothes Drier Repairer Name Role Phone Polo Pearce Primary Care Provider [phone] Encounter Details Date Type Department Care Team (Late st Contact Info) Description 06/11/2021 Telephone Cardiology at [address] [address] Deja Zaidi PA [address] [address] Social History Tobacco Use Types [...] JOCY Hernandez 06/11/2021 JOCY Hernandez 06/11/2021 Pager [phone] documented in this encounter Plan of Treatment Upcoming Encounters Date Type Department Care Team (Late st Contact Info) Description 02/10/2024 1:00 PM EST Office Visit Cardiology at [address] [place] [address] Jaspreet Kinsey MD [facility] [place] [address] documented as of this encounter Visit Diagnoses Not on filedocumented in this encounter Care Teams Clothes Drier Repairer Relationship Specialty Start Date End Date Polo Pearce PA [address] [place] [address] PCP - General Internal Medicine 06/09/21 documented as of this encounter
--- OUTSIDE RECORDS SUMMARY | 2024-01-24 21:14 | XMS_ITS | Encounter Summary ---
[place] [address] Care Team Providers Care Circle Shear Operator Name Role Phone Polo Pearce Primary Care Provider [phone] Encounter Details Date Type Department Care Team (Late st Contact Info) Description 03/10/2022 Telephone Cardiology at [address] [address] Maegan Mike APRN [facility] [place] [address] Social History Tobacco Use Types Packs/Day Years [...] Referring Provider: Otis Rubi APRN Patient Location: [facility] ED Past Medical History: Type II non-STEMI in October 2021, cardiac cath with normal coronary arteries in October 2019 AVNRT, 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 She [...] the patient condition. Maegan Mike APRN Pager [phone] 03/10/2022 documented in this encounter Plan of Treatment Upcoming Encounters Date Type Department Care Team (Late st Contact Info) Description 02/10/2024 1:00 PM EST Office Visit Cardiology at [address] [place] [address] Jaspreet Kinsey MD [facility] [place] [address] documented as of this encounter Visit Diagnoses Not on filedocumented in this encounter Care Teams Circle Shear Operator Relationship Specialty Start Date End Date Polo Pearce PA [address] [place] [address] PCP - General Internal Medicine 06/09/21 documented as of this encounter
--- OUTSIDE RECORDS SUMMARY | 2024-01-24 21:14 | XMS_ITS | Encounter Summary ---
Author Organization [facility] Address [facility] [place] [address] Care Team Providers Care Cipher Expert Name Role Phone Polo Pearce Primary Care Provider [phone] Reason for Visit * Reason Comments Congestive Heart Failure HFpEF Palpitations SVT/AVNRT * Consultation (Routine) - Closed Specialty Diagnoses / Procedures Referred By Jayant harris Referred To Contact Cardiology Diagnoses HFp EF Procedures NEW PATIENT Mario Hallman MD [facility] [place] [address] Jaspreet Kinsey MD [facility] [place] [address] Referral ID Status Reason Start Date Expiration Date Visits Re quested Visits Authorized [id number] Closed 07/23/2021 07/23/2022 1 1 Encounter Details Date Type Department Care Team (Late st Contact Info) Description 07/23/2021 8:20 AM EDT Office Visit Cardiology at [address] [address] Jaspreet Knisey MD [facility] [place] [address] Heart failure with preserved ejection [...] preserved ejection fraction 05/2021: subacute, presented to [facility] with RUQ pain, weight gain, and [...] needed. ??? fluticasone propionate (FLONASE) 50 mcg/actuation [place], Suspension 1 spray by Each Nare route [...] for hfpef and svt She presented to [facility] end of May with subacute RUQ [...] Office Visit Cardiology at [address] [place] [phone] Jaspreet Kinsey MD [facility] [address] documented as of this encounter Visit Diagnoses Diagnosis Heart failure with preserved ejection fraction, unspecified HF chronicity SVT (supraventricular tachycardia) Other specified cardiac dysrhythmias documented in this encounter Care Teams Cipher Expert Relationship Specialty Start Date End Date Polo Pearce PA [address] [place] [address] PCP - General Internal Medicine 06/09/21 documented as of this encounter
--- OUTSIDE RECORDS SUMMARY | 2024-01-24 21:14 | XMS_ITS | Encounter Summary ---
Author Organization [facility] [place] [address] Care Team Providers Care Recreation Worker Name Role Phone oPlo Pearce Primary Care Provider [phone] Encounter Details Date Type Department Care Team (Late st Contact Info) Description 06/13/2021 Telephone Cardiology at [address] [address] Chayo Dominguez PA [facility] [place] [address] Social History Tobacco Use Types Packs/Day Years [...] Referring Provider: Dr. Gale Trinh Patient Location: [facility] See Dr. Mejia's telephone encounter note for [...] Of note, she was recently admitted to [facility] [place] of angina and discharged 06/08/21. At that time she initially presented to [facility] where she was noted to have a troponin I of 406 which was flat at 411 on repeat and an elevated BNP. EKG showed nonspecific ST changes in the inferolateral leads. She was transferred to [facility] [...] management. Chayo Chappell PA-C Cardiovascular Medicine Pager [phone] 06/13/2021 documented in this encounter Plan of Treatment Upcoming Encounters Date Type Department Care Team (Late st Contact Info) Description 02/10/2024 1:00 PM EST Office Visit Cardiology at [address] [place] [phone] Jaspreet Kinsey MD [facility] [place] [address] documented as of this encounter Visit Diagnoses Not on filedocumented in this encounter Care Teams Recreation Worker Relationship Specialty Start Date End Date Polo Pearce PA [address] [place] [address] PCP - General Internal Medicine 06/09/21 documented as of this encounter
--- OUTSIDE RECORDS SUMMARY | 2024-01-24 21:14 | XMS_ITS | Encounter Summary ---
Author Organization [facility] [place] [address] Care Team Providers Care Computer Clerk Name Role Phone Polo Pearce Primary Care Provider [phone] Reason for Visit * Reason Comments Medication Refill Encounter Details Date Type Department Care Team (Late st Contact Info) Description 07/24/2022 Refill Cardiology at [address] [address] Deja Zaidi PA [address] [address] Medication Refill Social History Tobacco Use Types [...] PM EST Office Visit Cardiology at [address] [place] [address] Jaspreet Kinsey MD [facility] [place] [address] documented as of this encounter Visit Diagnoses Diagnosis Chronic heart failure with preserved ejection fraction documented in this encounter Care Teams Computer Clerk Relationship Specialty Start Date End Date Polo Pearce PA [address] [place] [address] PCP - General Internal Medicine 06/09/21 documented as of this encounter
--- OUTSIDE RECORDS SUMMARY | 2024-01-24 21:14 | XMS_ITS | Encounter Summary ---
Author Organization [facility] [place] [address] Care Team Providers Care Digital Specialist Name Role Phone Polo Pearce Primary Care Provider [phone] Reason for Visit * Reason Onset Date Comments Ascites 07/28/2022 Chest Pain 07/28/2022 Encounter Details Date Type Department Care Team (Late st Contact Info) Description 07/28/2022 Telephone Cardiology at [address] [address] Jaspreet Kinsey MD [facility] [place] [address] Ascites; Chest Pain Social History Tobacco Use [...] AM EDT Indira is inpatient at [facility] today. Nurse Madison indicates she is [...] 1.3 Plan: will remain inpatient at [facility] Outpatient CT heart planned on July 30 - cancel and reschedule (notified [facility] card lab [place]) documented in this encounter Plan of Treatment Upcoming Encounters Date Type Department Care Team (Late st Contact Info) Description 02/10/2024 1:00 PM EST Office Visit Cardiology at [address] [place] [address] Jaspreet Kinsey MD [facility] [place] [address] documented as of this encounter Visit Diagnoses Not on filedocumented in this encounter Care Teams Digital Specialist Relationship Specialty Start Date End Date Polo Pearce PA [address] [place] [address] PCP - General Internal Medicine 06/09/21 documented as of this encounter
--- OUTSIDE RECORDS SUMMARY | 2024-01-24 21:14 | XMS_ITS | Encounter Summary ---
Author Organization [facility] Address [facility] [place] [address] Care Team Providers Care Medical Surgical Tech Name Role Phone Polo Pearce Primary Care Provider [phone] Reason for Visit * Reason Onset Date Comments Chest Pain 03/11/2022 Encounter Details Date Type Department Care Team (Late st Contact Info) Description 03/11/2022 Telephone Cardiology at [address] [address] Jaspreet Kinsey MD [facility] [place] [address] Chest Pain Social History Tobacco Use Types [...] UTI, URI symptoms Requesting discharge summary(s) from [facility] from this week. Plan: to determine the indication and goals for this follow up cardiology appointment. From consultation by [facility] with Vianey Mike on 03/10/2021: Patient's [...] and blood in urine. Her number is [phone] should you have any questions. I looked in the chart and looks like we still need those records documented in this encounter Plan of Treatment Upcoming Encounters Date Type Department Care Team (Late st Contact Info) Description 02/10/2024 1:00 PM EST Office Visit Cardiology at [address] [place] [phone] Jaspreet Kinsey MD [facility] [place] [address] documented as of this encounter Visit Diagnoses Not on filedocumented in this encounter Care Teams Medical Surgical Tech Relationship Specialty Start Date End Date Polo Pearce PA [address] [place] [address] PCP - General Internal Medicine 06/09/21 documented as of this encounter
--- OUTSIDE RECORDS SUMMARY | 2024-01-24 21:14 | XMS_ITS | Encounter Summary ---
Author Organization [facility] Address [facility] [address] Care Team Providers Care Stem Lead Former Name Role Phone Polo Pearce Primary Care Provider [phone] Encounter Details Date Type Department Care Team (Late st Contact Info) Description 03/19/2022 Telephone Cardiology at [address] [address] Jed Tovar MD [facility] [place] [address] Social History Tobacco Use Types Packs/Day Years [...] for two weeks. Has been admitted to [facility] ED for this with rule out of [...] PM EST Office Visit Cardiology at [address] [place] [address] Jaspreet Kinsey MD [facility] [place] [address] documented as of this encounter Visit Diagnoses Not on filedocumented in this encounter Care Teams Stem Lead Former Relationship Specialty Start Date End Date Polo Pearce PA [address] [place] [address] PCP - General Internal Medicine 06/09/21 documented as of this encounter
--- OUTSIDE RECORDS SUMMARY | 2024-01-24 21:14 | XMS_ITS | Encounter Summary ---
Author Organization [facility] [place] [address] Care Team Providers Care Business Analyst Project Manager Name Role Phone Polo Pearce Primary Care Provider [phone] Encounter Details Date Type Department Care Team (Late st Contact Info) Description 07/29/2022 9:50 PM EDT Ancillary Procedure Radiology Library at [facility] [address] Marcia Kamara MD [facility] [place] [address] Social History Tobacco Use Types Packs/Day Years [...] PM EST Office Visit Cardiology at [address] [place] [address] Jaspreet Kinsey MD [facility] [place] [address] documented as of this encounter Procedures Procedure [...] FILM LIBRARY ORD ERABLES Performing Organization Address City/State/[facility] Co de Phone Number [place], [place] documented in this encounter Visit Diagnoses Not on filedocumented in this encounter Care Teams Business Analyst Project Manager Relationship Specialty Start Date End Date Polo Pearce PA [address] [place] [address] PCP - General Internal Medicine 06/09/21 documented as of this encounter
--- OUTSIDE RECORDS SUMMARY | 2024-01-24 21:14 | XMS_ITS | Encounter Summary ---
Author Organization [facility] [place] [address] Care Team Providers Care Home Assessment Nurse Name Role Phone Polo Pearce Primary Care Provider [phone] Encounter Details Date Type Department Care Team (Late st Contact Info) Description 03/11/2022 Orders Only Cardiology at [address] [address] Jed Tovar MD [facility] [place] [address] SVT (supraventricular tachycardia) Social History Tobacco Use [...] PM EST Office Visit Cardiology at [address] [address] Jaspreet Kinsey MD [facility] [place] [address] documented as of this encounter Visit Diagnoses Diagnosis SVT (supraventricular tachycardia) Other specified cardiac dysrhythmias documented in this encounter Care Teams Home Assessment Nurse Relationship Specialty Start Date End Date Polo Pearce PA [address] [place] [address] PCP - General Internal Medicine 06/09/21 documented as of this encounter
--- OUTSIDE RECORDS SUMMARY | 2024-01-24 21:14 | XMS_ITS | Encounter Summary ---
Author Organization [facility] [place] [address] Care Team Providers Care Web Mobile Designer Name Role Phone Polo Pearce Primary Care Provider [phone] Encounter Details Date Type Department Care Team (Late st Contact Info) Description 04/16/2022 Refill Cardiology at [address] [place] [address] Jaspreet Kinsey MD [facility] [place] [address] Social History Tobacco Use Types Packs/Day Years [...] ??Order for CCTA placed by Dr. Kinsey. [facility] will contact you for scheduling. [...] her tocontinue on this. Phone # Is [phone] documented in this encounter Plan of Treatment Upcoming Encounters Date Type Department Care Team (Late st Contact Info) Description 02/10/2024 1:00 PM EST Office Visit Cardiology at [address] [place] [address] Jaspreet Kinsey MD [facility] [place] [address] documented as of this encounter Visit Diagnoses Diagnosis Chronic heart failure with preserved ejection fraction Chest pain, unspecified type documented in this encounter Care Teams Web Mobile Designer Relationship Specialty Start Date End Date Polo Pearce PA [address] [place] [address] PCP - General Internal Medicine 06/09/21 documented as of this encounter
--- OUTSIDE RECORDS SUMMARY | 2024-01-24 21:14 | XMS_ITS | Encounter Summary ---
Author Organization [facility] [place] [address] Care Team Providers Care Acid Bath Mixer Name Role Phone Polo Pearce Primary Care Provider [phone] Encounter Details Date Type Department Care Team (Late st Contact Info) Description 07/29/2022 9:45 PM EDT Ancillary Procedure Radiology Library at [facility] [address] Marcia Kamara MD [facility] [place] [address] Social History Tobacco Use Types Packs/Day Years [...] PM EST Office Visit Cardiology at [address] [place] [address] Jaspreet Kinsey MD [facility] [place] [address] documented as of this encounter Procedures Procedure [...] Kamara MD IMG FILM LIBRARY ORD ERABLES [place], [place] documented in this encounter Visit Diagnoses Not on filedocumented in this encounter Care Teams Acid Bath Mixer Relationship Specialty Start Date End Date Polo Pearce PA [address] [place] [address] PCP - General Internal Medicine 06/09/21 documented as of this encounter
--- OUTSIDE RECORDS SUMMARY | 2024-01-24 21:14 | XMS_ITS | Encounter Summary ---
Author Organization [facility] [place] [address] Care Team Providers Care Master Coastal Waters Name Role Phone Polo Pearce Primary Care Provider [phone] Encounter Details Date Type Department Care Team (Late st Contact Info) Description 06/13/2021 [place] [address] Ralf Mejia MD [facility] [place] [address] Social History Tobacco Use Types Packs/Day Years [...] Referring provider: Jasiel Caicedo MD Patient location: [facility] Past medical history: HLD HTN Asthma Depression ?Micrvascular disease SVT MARYLOU Diastolic heart failure History 51-year-old female with history as noted above who is just admitted to [facility] for evaluation of angina with discharge 06/08/2021. At that time she initially presented to [facility] where she was noted to have a troponin I of 406 which was flat at 411 on repeat and an elevated BNP. EKG showed nonspecific ST changes in the inferolateral leads. She was transferred to [facility] for further evaluation where she underwent a [...] I and her recent work-up here at [facility] which did not include an ischemic evaluation but did include a transesophageal echocardiogramserial EKGs and serial negative troponins that further work-up at [facility] may be appropriate. Suspect that her [...] possible microvascular angina. Plan: -Continue management at [facility]. -Recommend stress test at [facility]. -Start metoprolol succinate 25 mg daily with follow-up with cardiology and up titration. -Continue medications as prescribed from her recent discharge. -Planning to get serial troponins and EKGs. If these are markedly changing can reassess and consider transfer to [facility] for further evaluation. Ralf Mejia MD 06/13/2021 12:05 AM documented in this encounter Plan of Treatment Upcoming Encounters Date Type Department Care Team (Late st Contact Info) Description 02/10/2024 1:00 PM EST Office Visit Cardiology at [address] [place] [address] Jaspreet Kinsey MD [facility] [place] [address] documented as of this encounter Visit Diagnoses Not on filedocumented in this encounter Care Teams Master [place] Relationship Specialty Start Date End Date Polo Pearce PA [address] [place] [address] PCP - General Internal Medicine 06/09/21 documented as of this encounter
--- OUTSIDE RECORDS SUMMARY | 2024-01-24 21:14 | XMS_ITS | Encounter Summary ---
[place] [address] Care Team Providers Care Acls Nurse Name Role Phone Polo Pearce Primary Care Provider [phone] Encounter Details Date Type Department Care Team (Late st Contact Info) Description 03/11/2022 Telephone Cardiology at [address] [phone] Mary Motta, RN Social History Tobacco Use [...] ESTSummary: Pre Procedure Call: SVT Ablation EP MARKET MASTER COORDINATION CHECKLIST Patient Name: Indira Roque Patient Performing Branch General Manager: Jed Tovar Referring Provider: Sobeida Jimenez Date of Procedure: 03/23/22 Arrival Time/ Case Time: 6:00 am / 7:30 am Check In Location: [facility] 4W Date Patient was Called: 03/11/22 [...] overnight , understands that they will need corporate driver on day of discharge Notified pt that Esqueda catheter may be placed on day of procedure depending on type & duration of case. Special Notes/Considerations: Given fequent ED visits to [facility] within the past 4 days, will contact pt next week (03/18) to see howsymptoms are progressing. If still having pain, issues will need to reschedule procedure per Dr. Tovar documented in this encounter Plan of Treatment Upcoming Encounters Date Type Department Care Team (Late st Contact Info) Description 02/10/2024 1:00 PM EST Office Visit Cardiology at [address] [place] [phone] Jaspreet Kinsey MD [facility] [place] [address] documented as of this encounter Visit Diagnoses Not on filedocumented in this encounter Care Teams Acls Nurse Relationship Specialty Start Date End Date Polo Pearce PA Sb MOTT [address] [place] [id number] PCP - General Internal Medicine 06/09/21 documented as of this encounter
--- OUTSIDE RECORDS SUMMARY | 2024-01-24 21:14 | XMS_ITS | Encounter Summary ---
Author Organization [facility] [place] [address] Care Team Providers Care Chemical Economist Name Role Phone Polo Pearce Primary Care Provider [phone] Encounter Details Date Type Department Care Team (Late st Contact Info) Description 06/24/2022 Telephone Cardiology at [address] [phone] Jaspreet Kinsey MD [facility] [place] [address] Social History Tobacco Use Types Packs/Day Years [...] - 06/30/2022 11:54 AM EDT [facility] is faxing over her ER visits since late February. She has been there four times. * Telephone Encounter - Brenda Callahan - 06/24/2022 11:41 AM EDT Pt called wanting to know what is going on with a referral Dr. Knisey had mentioned. She said she has been waiting for someone to tell her what is next but nothing has happened. She does not know what her next steps are and she would like to know. Best # to reach her is work [phone] documented in this encounter Plan of Treatment Upcoming Encounters Date Type Department Care Team (Late Contact Info) Description 02/10/2024 1:00 PM EST Office Visit Cardiology at [address] [place] [address] Jaspreet Kinsey MD [facility] [place] [address] documented as of this encounter Visit Diagnoses Not on filedocumented in this encounter Care Teams Chemical Economist Relationship Specialty Start Date End Date Polo Pearce PA Sb MOTT [address] [place] [phone] PCP - General Internal Medicine 06/09/21 documented as of this encounter
--- OUTSIDE RECORDS SUMMARY | 2024-01-24 21:14 | XMS_ITS | Encounter Summary ---
Author Organization [facility] [place] [address] Care Team Providers Care Territory Sales Professional Name Role Phone Polo Pearce Primary Care Provider [phone] Encounter Details Date Type Department Care Team (Late st Contact Info) Description 12/31/2021 Orders Only Cardiology at [address] [phone] Umberto Joy PA [facility] [place] [address] SVT (supraventricular tachycardia) Social History Tobacco Use [...] PM EST Office Visit Cardiology at [address] [place] [address] Jaspreet Kinsey MD [facility] [place] [address] documented as of this encounter Procedures Procedure [...] Lovell. Interpretation Summary Limited echocardiogram performed by media production operator fellow. 1. LV appears globally hypokinetic. Visually estimated LVEF 40%. 2. RV is not well visualized, but appears mildly reduced in global systolic function. Recommend comprehensive echo. Procedure Note Willy Gómez MD - 01/05/2022 Echocardiogram Report Name: LOIDA ROQUE Study Date: 12/30/2021 11:29PM : 1970 Age: 51 yrs Gender: Female Interpreting Fellow: Ciro Lovell. Interpretation Summary Limited echocardiogram performed by media production operator fellow. 1. LV appears globally hypokinetic. Visually estimated LVEF 40%. 2. RV is not well visualized, but appears mildly reduced in globalsystolic function. Recommend comprehensive echo. Unknown ECHO ORDERABLES documented in this encounter Visit Diagnoses Diagnosis SVT (supraventricular tachycardia) Other specified cardiac dysrhythmias documented in this encounter Care Teams Territory Sales Professional Relationship Specialty Start Date End Date Polo Pearce PA [address] [place] [address] PCP - General Internal Medicine 06/09/21 documented as of this encounter
--- OUTSIDE RECORDS SUMMARY | 2024-01-24 21:14 | XMS_ITS | Encounter Summary ---
Author Organization [facility] [place] [address] Care Team Providers Care Pack Press Operator Name Role Phone Polo Pearce Primary Care Provider [phone] Reason for Visit * Consultation (Routine) - Closed Specialty Diagnoses / Procedures Referred By Contact Referred To Contact Electrophysiology / Cardiology Diagnoses Supraventricular tachycardia evaluation for AVNRT ablation due to symptomatic SVT with myocardial injury Sandy Serna MD [facility] GENER[place] [address] [facility] [address] [place] [phone] Referral ID Status Reason Start Date Expiration Date V isits Requested Visits Authorized [id number] Closed Consult, Test & Treat 06/14/2021 06/14/2022 1 1 Encounter Details Date Type Department Care Team (Late st Contact Info) Description 08/19/2021 3:00 PM EDT Office Visit Cardiology at [address] [phone] Umberto Joy PA [facility] [place] [address] AVNRT (AV makayla re-entry tachycardia) Social History [...] EKGs(ST T-wave abnormalities) but clean cors at [facility] in 2019 and essentially normal [...] anticipated in the future. She lives in [place], [place] and has seen Dr. Kinsey in [place]. Patient Active Problem List Diagnosis ??? 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 Obesity ??? Dyslipidemia ??? MARYLOU on CPAP ??? Restless leg syndrome ??? Insomnia ??? 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 ??? fluticasone propionate (FLONASE) 50 mcg/actuation [place], Suspension 1 spray by Each Nare route [...] 12 lead EK08/19/2021 Sinus bradycardia @ 57; MN 176; QRS 84; QTc 443ms Zio: 06/09/2021 [...] findings with emphasis on quality assurance monitor body data. We also discussed risk/benefit of EPS/ablation [...] PM EST Office Visit Cardiology at [address] [place] [phone] Jaspreet Kinsey MD [facility] [place] [address] documented as of this encounter Procedures Procedure [...] (Bezet) 443 ms MUSE SYSTEM Calculated P [place] 49 degrees MUSE SYSTEM Calculated R [place] 63 degrees MUSE SYSTEM Calculated T [place] -60 degrees MUSE SYSTEM INTERPRETATION Sinus bradycardia [...] dysrhythmias documented in this encounter Care Teams Pack Press Operator Relationship Specialty Start Date End Date Polo Pearce PA S[address] [place] [address] PCP - General Internal Medicine 06/09/21 documented as of this encounter
--- OUTSIDE RECORDS SUMMARY | 2024-01-24 21:14 | XMS_ITS | Encounter Summary ---
Author Organization [facility] [place] [address] Care Team Providers Care Marketing Analytics Specialist Name Role Phone Polo Pearce Primary Care Provider [phone] Encounter Details Date Type Department Care Team (Late st Contact Info) Description 03/17/2022 Telephone Cardiology at [address] [phone] Jaspreet Kinsey MD [facility] [place] [address] Social History Tobacco Use Types Packs/Day Years [...] the new one. Please call her @ [phone]. documented in this encounter Plan of Treatment Upcoming Encounters Date Type Department Care Team (Late st Contact Info) Description 02/10/2024 1:00 PM EST Office Visit Cardiology at [address] [place] [address] Jaspreet Kinsey MD [facility] [place] [address] documented as of this encounter Visit Diagnoses Not on filedocumented in this encounter Care Teams Marketing Analytics Specialist Relationship Specialty Start Date End Date Polo Pearce PA Sb MOTT [address] [place] [id number] PCP - General Internal Medicine 06/09/21 documented as of this encounter
--- OUTSIDE RECORDS SUMMARY | 2024-01-24 21:14 | XMS_ITS | Encounter Summary ---
[place] [address] Care Team Providers Care Briquette Operator Name Role Phone Polo Pearce Primary Care Provider [phone] Reason for Visit * Auth/Cert Specialty Diagnoses / Procedures Referred By Jayant harris Referred To Contact Diagnoses NSTEMI (non-ST elevated myocardial infarction) Chest Pain Procedures EMERGENCY IPI Sobeida Jimenez MD [facility] [place] [address] RUST Referral ID Status Reason Start Date Expiration Date Visits Re quested Visits Authorized [id number] 1 1 Encounter Details Date Type Department Care Team (Latest Contact Info) Description 12/30/2021 10:41 PM EDT - 01/01/2022 2:24 PM EDT Hospital Encounter Card[place] [address] Sobeida Jimenez MD [facility] [place] [address] SVT (supraventricular tachycardia); Non-ST elevation UT (NSTEMI); NSTEMI (non-ST elevated myocardial infarction); Acute [...] Loida Madrigal Patient Age: 51 y.o. Language: Turkmen Race: White Ethnicity: Not nor Admit date: 12/30/2021 Discharge date and time: 01/01/2022 Attending Physician: Sobeida Jimenez MD Discharge Physician: Sobeida Jimenez MD ID: Loida Madrigal is a 51 y.o. female w/ PMH of AVNRT, HFpEF, asthma, MARYLOU, obesity, mild PAH([facility] 06/2021) who presents today in transfer for [...] Contact Information: JOCY [address] / [facility] [id number] Pending Studies and Lab Data: Official Ankle [...] abdomen ??? Restless legs ??? Non-ST elevation UT (NSTEMI) ??? Asthma ??? Rhinitis, nonallergic, chronic [...] plavix 600 with plan to transfer to [facility] for furthermanagement. Pertinent prior studies below: [...] Type II Patient initially presented to the [facility] ED on 12/30 with chest pain. [...] 06:52 AMBP: 109/62 mmHg Patient Location: [facility]^C450^B : 1970 Height: 163 cm Account: [id number] Age: 51 yrs Weight: 100 kg Gender: Female BSA: 2.0 m2 Ordering Physician: SOBEIDA JIMENEZ Referring Physician: KARIN ESPINOSA Performed By: HAIM Harris Reason For Study: Acute on chronic heart failure with preserved ejection fraction Exam Location: [facility]. Interpretation Summary -Left ventricle is of normal [...] the prior study from 06/09/21 ?? Procedure Complete-[id number]. Satisfactory quality. There is sinus bradycardia. ?? [...] questions please contact the health intensive care unit nurse that requested your imaging first. Electronically signed by: Olive Barrera MD, [facility] ([phone]), at 01/01/2022 1:56 PM Discharge Conditions/Prognosis: Upon [...] scheduled with both your PCP and your hatch tender in the outpatient setting within the next [...] appointments: During 8am-5pm Wednesday through Wednesday call [phone] to speak with a nurse in the cardiology clinic All other times call [phone] and ask to speak to the security police officer at risk paraprofessional. Follow up Appointments: Future Appointments Date Time Provider Department Center 01/21/2022 9:00 AM Jaspreet Kinsey MD [facility] 01/12/2022, Appointment with Mr. Polo Pearce Aws Architect: Dr. Jaspreet Kinsey PCP: JOCY Franco at [phone] Your Inpatient Doctor(s) at [facility]: Sobeida Jimenez MD - Attending physician Dr. Paris Guerra MD - Resident Physician Dr. Yoselin Gómez DO, Resident Physician Dr. Edwin Mcghee MD, Fellow Physician Your Primary Care Provider: JOCY Franco DR [facility] / [facility] [address] For questions regarding issues relating to your hospitalization on the Hospital Medicine Service, please contact your inpatient physician through the [facility] Swim Coach [phone]. Issues after hours and on weekends will be handled by the Hospitalist staff on-call. General Instructions None Future Appointments and Orders Future Appointments and Orders Future Appointments Provider Department Dept Phone 01/21/2022 9:00 AM Jaspreet Kinsey MD Cardiology at [place] Arrive at: [facility] [address] [phone] Inpatient Provider Contact Information: Deven Guerra Jr, MD Internal Medicine, PGY-3 [facility], pager [phone] Discharge References/Attachments: Discharge References/Attachments None documented in [...] scheduled with both your PCP and your hatch tender in the outpatient setting within the next [...] appointments: During 8am-5pm Wednesday through Wednesday call [phone] to speak with a nurse in the cardiology clinic All other times call [phone] and ask to speak to the security police officer at risk paraprofessional. Follow up Appointments: Future Appointments Date Time Provider Department Center 01/21/2022 9:00 AM Jaspreet Kinsey MD [facility] 01/12/2022, Appointment with Mr. Polo Pearce Aws Architect: Dr. Jaspreet Kinsey PCP: JOCY Franco at [phone] Your Inpatient Doctor(s) at [facility]: Sobeida Jimenez MD - Attending physician Dr. Paris Guerra MD - Resident Physician Dr. Yoselin Gómez DO, Resident Physician Dr. Edwin Mcghee MD, Fellow Physician Your Primary Care Provider: JOCY Franco [address] [facility] / [facility] [address] For questions regarding issues relating to your hospitalization on the Hospital Medicine Service, please contact your inpatient physician through the [facility] Swim Coach [phone]. Issues after hours and on weekends will [...] as needed. fluticasone propionate (FLONASE) 50 mcg/actuation [place], Suspension 1 spray by Each Nare route [...] 1970 PCP: JOCY Franco PCP phone number: [phone] Date of Admission: 12/30/2021 ( Hospital Day 1 day ) Attending:Sobeida Jimenez MD ID: Loida Madrigal is a 51 y.o. female w/ PMH of AVNRT, HFpEF, asthma, MARYLOU, obesity, mild PAH([facility] 06/2021) who presents today in transfer for evaluation of chest pain. Patient Active Problem List Diagnosis ??? NSTEMI (non-ST elevated myocardial infarction) ??? 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 Obesity ??? Dyslipidemia ??? Obstructive sleep apnea syndrome ??? Insomnia ??? (HFpEF) heart failure with preserved ejection fraction Overview Note: 05/2021: subacute, presented to [facility] with RUQ pain, weight gain, and progressive dyspnea. Noted to caryr most fluid in abdomen ??? Restless legs ??? Non-ST elevation UT (NSTEMI) ??? Asthma ??? Rhinitis, nonallergic, chronic [...] plavix 600 with plan to transfer to [facility] for furthermanagement. 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 ??? fluticasone propionate (FLONASE) 50 mcg/actuation [place], Suspension 1 spray by Each Nare route [...] ??? heparin (porcine) infusion 1,000 Units/hr (12/30/21 3264) PRN Meds: lidocaine, nitroGLYcerin, sodium chloride 0.9 [...] obesity, AVNRT presented with CP and palpitations [facility] 2019: normal cors [facility] 2021: mild PHTN, mPA 24, CI 1.57 [...] Pt up to toilet. Diet order placed, cardiac/[facility] diet. PRN ibuprofen ordered and given [...] COVID test: Lab Results Component Value Date [id number] Not Detected 06/13/2021 Present on Admission: ??? [...] Why not?: n/a Prescription Coverage: Preferred Pharmacy: [facility] [place], [place] - [address] [place] [address] [address] [facility] [address] [facility] [place], [place] - [address] [facility] [address] [facility] [address] 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 Current Living Arrangements: home/apartment/condo. Accessibility Concerns:no concerns. Current DME: none [address] [facility] [address] Social & Family Supports: Extended Emergency Contact [...] private car when medically ready. Registered Nurse Steam Room Attendant / Senior Software Test Engineer will continue to follow patient???s progress and remain available if situation changes for coordination of care, psychosocial support and/or discharge planning. Office of Care Management documented in this encounter Plan of Treatment Upcoming Encounters Date Type Department Care Team (Late st Contact Info) Description 02/10/2024 1:00 PM EST Office Visit Cardiology at [address] [place] [id number] Jaspreet Kinsey MD [facility] [place] [address] documented as of this encounter Procedures Procedure [...] questions please contact the health intensive care unit nurse that requested your imaging first. ? Electronically signed by: Olive Barrera MD, [facility] ([phone]), at 01/01/2022 1:56 PM Narrative 01/01/2022 1:56 [...] have questions please contactthe health intensive care unit nurse that requested your imaging first. Electronically signed by: Olive Barrera MD, [facility]([phone]), at 01/01/2022 1:56 PM Sobeida Jimenez MD IMG DX ORDERABLES * Magnesium (01/01/2022 8:56 AM EDT) Magnesium 0.96 0.69 - 1.07 mmol/L [facility] Blood 01/01/2022 8:56 AM EDT 01/01/2022 9:19 AM EDT Narrative Resulting Agency Comment Spec In Lab Sobeida Jimenez MD CHEMISTRY ORDERABLES [facility] [place] [id number] * Differential, Automated (01/01/2022 4:15 AM EDT) Pathologist [facility] Neutrophil % 59.8 % [facility] Neutrophil Absolute 3.72 1.70 - 6.10 x10(3)/[facility] Lymph % 26.0 % [facility] Lymphocytes Abs 1.6 0.9 - 3.2 x10(3)/[facility] Monocyte % 8.7 % [facility] Monocyte Abs 0.5 0.3 - 0.9 x10(3)/[facility] Eos % 4.5 % [facility] Eosinophils Abs 0.3 0.0 - 0.4 x10(3)/[facility] Basophil % 0.8 % [facility] Baso Absolute 0.0 0.0 - 0.1 x10(3)/[facility] Immature Gran % 0.20 % [facility] Comment: Immature granulocytes(IG's)percentage and absolute count will include metamyelocytes, myelocytes, and promyelocytes. Blood smears from CBCs yielding IG's will be scanned manually for concordance. If this scan disagrees with the automated IG or if promyelocytes are noted, a manual differential will be performed. Immature Gran Absolute 0.01 0.00 - 0.04 x10(3)/[facility] Blood 01/01/2022 4:15 AM EDT 01/01/2022 4:23 AM EDT Narrative Resulting Agency Comment Spec In Lab Lorna Haider MD HEMATOLOGY ORDERABL ES [facility] [place] [address] * Hemogram (01/01/2022 4:15 AM EDT) White Blood Cell 6.2 4.0 - 9.5 x10(3)/[facility] Red Blood Cell 4.43 4.00 - 5.21 x10(6)/[facility] Hemoglobin 13.9 11.7 - 15.5 g/dL [facility] Hematocrit 41.3 35.7 - 45.8 % [facility] Mean Cell Volume 93.2 82.6 - 94.4 [facility] Mean Cell Hemoglobin 31.4 27.1 - 32.0 pg [facility] Mean Cell Hemoglobin Concentration 33.7 31.7 - 35.0 g/dL [facility] Platelet 204 145 - 357 x10(3)/[facility] RDW Standard Deviation 43.4 37.0 - 46.0 [facility] RDW coefficient of variation 12.6 11.5 - 14.1 % [facility] Mean Platelet Volume 10.6 7.6 - 12.9 [facility] NRBC% auto 0.0 % [facility] NRBC Absolute 0.000 0.000 - 0.000 x10(3)/[facility] Blood 01/01/2022 4:15 AM EDT 01/01/2022 4:23 AM EDT Narrative Resulting Agency Comment Spec In Lab Lorna Haider MD HEMATOLOGY ORDERABL ES [facility] [place] [address] * (ABNORMAL) Basic Metabolic Panel (non-fasting) (01/01/2022 [...] Lab Sobeida Jimenez MD CHEMISTRY ORDERABLES [facility] [place] [address] * ECHO COMPLETE (12/31/2021 8:02 AM EDT) Anatomical Region Laterality Modality Cardiac Other 12/31/2021 6:52 AM EDT Narrative 12/31/2021 8:30 AM EDT ? Echocardiogram Report Name: LOIDA MADRIGAL ? Study Date: 12/31/2021 06:52 AMBP: 109/62 mmHg ? Patient Location: [facility]^C450^B : 1970 ? Height: 163 cm ? Account: [id number] Age: 51 yrs ? Weight: 100 kg Gender: Female ?BSA: 2.0 m2 Ordering Physician: SOBEIDA JIMENEZ Referring Physician: KARIN ESPINOSA Performed By: HAIM Harris Reason For Study: Acute on chronic heart failure with preserved ejection fraction Exam Location: [facility]. Interpretation Summary -Left ventricle is of normal [...] to the prior study from 06/09/21 Procedure Complete-[id number]. Satisfactory quality. There is sinus bradycardia. Left [...] Date: 206:52 AMBP: 109/62 mmHg Patient Location:[facility]^C450^B : 1970 Height: 163 cm Account: [id number] Age: 51 yrs Weight: 100 kg Gender: Female BSA: 2.0 m2 Ordering Physician: SOBEIDA JIMENEZ Referring Physician: KARIN ESPINOSA Performed By: HAIM Harris Reason For Study: Acute on chronic heart failure with preserved ejectionfraction Exam Location: [facility]. Interpretation Summary -Left ventricle is of normal [...] to the prior study from 06/09/21 Procedure Complete-[id number]. Satisfactory quality. There is sinus bradycardia. Left [...] 7:01 AM EDT) UF Heparin 0.43 IU/mL [facility] Comment: Heparin (anti-Xa) [...] MD HEMATOLOGY ORDERABLE S Performing Organization Address City/[facility]/ZIP Co de Phone Number [facility] [place] [address] * T4, free (12/31/2021 7:01 AM EDT) [facility] Free T4 1.16 0.93 - 1.70 ng/dL [facility] Comment: Reference Interval (ng/dL): Females: ??First Trimester: 0.97-1.68 ??Second Trimester: 0.77-1.51 ??Third Trimester: 0.77-1.49 Blood 12/31/2021 7:01 AM EDT 12/31/2021 7:11 AM EDT Narrative Resulting Agency Comment Spec In Lab Sobeida Jimenez MD CHEMISTRY ORDERABLES Performing Organization Address City/[facility]/ZIP Co de Phone Number [facility] [place] [address] * (ABNORMAL) Troponin (12/31/2021 3:28 AM EDT) [facility] Troponin-T, High Sensitivity 21(H) <=14 ng/L [...] troponin value can be found in the [facility] Laboratory Test Catalog Troponin - [facility] Laboratory Test Catalog Reference: Fourth [place] Definition of Myocardial Infarction. Journal of the [employer] College of Cardiology 2018;72:9234-6485 Blood 12/31/2021 3:28 AM EDT 12/31/2021 4:31 AM EDT Narrative Resulting Agency Comment Spec In Lab Sobeida Jimenez MD CHEMISTRY ORDERABLES [facility] [place] [address] * EKG 12 Lead (12/31/2021 3:23 AM EDT) Ventricular rate 44 BPM MUSE SYSTEM Atrial Rate 44 BPM MUSE SYSTEM P-R Interval 190 ms MUSE SYSTEM QRS Duration 86 ms MUSE SYSTEM Q-T Interval 562 ms MUSE SYSTEM QTC Calculated (Bezet) 480 ms MUSE SYSTEM Calculated P [place] 32 degrees MUSE SYSTEM Calculated R [place] 58 degrees MUSE SYSTEM Calculated T [place] 24 degrees MUSE SYSTEM INTERPRETATION Marked sinus bradycardia Possible Lateral infarct (cited on or before 30-DEC-2021) Nonspecific ST and T wave abnormality Prolonged QT Abnormal ECG When compared with ECG of 25-OCT-2022 22:45, No significant change was found I personally reviewed the tracing and edited the fellows interpretation Confirmed by fellow MD Rosalinda, Alejandro ([id number]) on 12/31/2021 9:13:46 PM Confirmed by MD Angelo Danette ([id number]) on 01/01/2022 7:24:12 AM MUSE SYSTEM 12/31/2021 3:23 AM EDT 01/01/2022 7:24 AM EDT Sobeida Jimenez MD ECG ORDERABLES Performing Organization Address City/[facility]/ZIP Co de Phone Number MUSE SYSTEM * Heparin (unfractionated) Level (12/31/2021 12:20 AM EDT) Pathologist [facility] UF Heparin 0.40 IU/mL [facility] Comment: Specimen drawn [...] MD HEMATOLOGY ORDERABLE S Performing Organization Address City/[facility]/ZIP Co de Phone Number [facility] [place] [address] * Differential, Automated (12/31/2021 12:20 AM EDT) Neutrophil % 57.0 % [facility] Neutrophil Absolute 4.48 1.70 - 6.10 x10(3)/[facility] Lymph % 32.4 % [facility] Lymphocytes Abs 2.6 0.9 - 3.2 x10(3)/[facility] Monocyte % 6.4 % [facility] Monocyte Abs 0.5 0.3 - 0.9 x10(3)/[facility] Eos % 3.3 % [facility] Eosinophils Abs 0.3 0.0 - 0.4 x10(3)/[facility] Basophil % 0.5 % [facility] Baso Absolute 0.0 0.0 - 0.1 x10(3)/[facility] Immature Gran % 0.40 % [facility] Comment: Immature granulocytes(IG's)percentage and absolute count will include metamyelocytes, myelocytes, and promyelocytes. Blood smears from CBCs yielding IG's will be scanned manually for concordance. If this scan disagrees with the automated IG or if promyelocytes are noted, a manual differential will be performed. Immature Gran Absolute 0.03 0.00 - 0.04 x10(3)/[facility] Blood 12/31/2021 12:2 0 AM EDT 12/31/2021 12:41 AM EDT Narrative Resulting Agency Comment Spec In Lab Lorna Haider MD HEMATOLOGY ORDERABL ES [facility] [place] [address] * Hemogram (12/31/2021 12:20 AM EDT) White Blood Cell 7.9 4.0 - 9.5 x10(3)/[facility] Red Blood Cell 4.24 4.00 - 5.21 x10(6)/[facility] Hemoglobin 13.3 11.7 - 15.5 [...] HOSPITAL LABORATORY Platelet 209 145 - 357 x10(3)/[facility] RDW Standard Deviation 43.2 37.0 - 46.0 fL [facility] RDW coefficient of variation 12.8 11.5 - 14.1 % [facility] Mean Platelet Volume 11.2 7.6 - 12.9 fL [facility] NRBC% auto 0.0 % [facility] NRBC Absolute 0.000 0.000 - 0.000 x10(3)/[facility] Blood 12/31/2021 12:2 0 AM EDT 12/31/2021 12:41 AM EDT Narrative Resulting Agency Comment Spec In Lab Lorna Haider MD HEMATOLOGY ORDERABL ES [facility] [place] [address] * (ABNORMAL) Troponin (12/31/2021 12:20 AM EDT) [...] troponin value can be found in the [facility] Laboratory Test Catalog Troponin - [facility] Test Catalog Reference: Fourth [place] Definition of Myocardial Infarction. Journal of the [employer] College of Cardiology 2018;72:0081-2476 Blood 12/31/2021 12:2 0 AM EDT 12/31/2021 12:41 AM EDT Narrative Resulting Agency Comment Spec In Lab Sobeida Jimenez MD CHEMISTRY ORDERABLES [facility] [place] [address] * (ABNORMAL) Hemoglobin A1c (12/31/2021 12:20 AM [...] into estimated average glucose values. ??Diabetes Care 2008:31(8):0817-6992. Blood 12/31/2021 12:2 0 AM EDT 12/31/2021 12:42 AM EDT Narrative Resulting Agency Comment Spec In Lab Sobeida Jimenez MD CHEMISTRY ORDERABLES [facility] [place] [address] * Lipid Panel (Reflex Direct LDL) (12/31/2021 12:20 AM EDT) Cholesterol, Total 122 mg/dL [facility] Comment: Lower Risk: <200 mg/dL Average Risk: 200-239 mg/dL Higher Risk: >ik=008 mg/dL Triglyceride 111 mg/dL [facility] Comment: Average Risk/Lower Risk: <150 mg/dL Borderline High Risk: 150-199 mg/dL High Risk: 200-499 mg/dL Very High Risk: >dy=904 mg/dL HDL Cholesterol 35 mg/dL [facility] Comment: Males: ?? Higher Risk: <40 mg/dL Females: ?? Higher Risk: <50 mg/dL LDL Cholesterol 65 mg/dL [facility] Comment: Lowest Risk: <100 mg/dL Lower Risk: 100-129 mg/dL Borderline High Risk: 130-159 mg/dL High Risk: 160-189 mg/dL Very High Risk: >ri=835 mg/dL Cholesterol/HDL Ratio 3.5 ratio [facility] Lipid Interpretation See Note [facility] Comment: Lipid management should be guided by a patient? s ASCVD risk, goals and preferences. ACC/AHA Guidelines recommend high intensity statin if clinical ASCVD or LDL greater than or equal to 190 mg/dL. http://Amicrobe.com/CFM-SUU-Xniqadoqd Adults aged 40-75 with LDL 70-189 mg/dL should have their 10 year ASCVD risk estimated with the ACC/AHA ASCVD risk research soil scientist http://tools.acc.org/DGEHV-Cnqy-Ceyhpdsug/ Statin should be discussed if risk greater [...] Narrative Resulting Agency Comment Spec In Lab oSbeida Jimenez MD CHEMISTRY ORDERABLES [facility] [place] [address] * (ABNORMAL) APTT (12/31/2021 12:20 AM EDT) [...] MD HEMATOLOGY ORDERABLE S Performing Organization Address City/[facility]/ZIP Co de Phone Number [facility] [place] [address] * Prothrombin Time (12/31/2021 12:20 AM EDT) [...] ORDERABLE S Performing Organization Address [facility] Co de Phone Number [facility] [place] [address] * (ABNORMAL) pro-Brain Natriuretic Peptide (12/31/2021 12:20 AM EDT) NT-proBNP 2,515(H) <=124 pg/mL [facility] Blood 12/31/2021 12:2 0 AM EDT 12/31/2021 12:41 AM EDT Narrative Resulting Agency Comment Spec In Lab Sobeida Jimenez MD CHEMISTRY ORDERABLES Performing Organization Address [facility]/ZIP Co de Phone Number [facility] [place] [address] * (ABNORMAL) TSH (12/31/2021 12:20 AM EDT) Thyroid Stimulating Hormone 7.36(H) 0.27 - 4.20 mcIU/mL [facility] Comment: Reference Interval (mcIU/mL): Females: ??First Trimester: 0.23-3.88 ??Second Trimester: 0.22-3.90 ??Third Trimester: 0.44-4.66 Blood 12/31/2021 12:2 0 AM EDT 12/31/2021 12:41 AM EDT Narrative Resulting Agency Comment Spec In Lab Sobeida Jimenez MD CHEMISTRY ORDERABLES Performing Organization Address City/[facility] Co de Phone Number [facility] [place] [address] * Phosphorus (12/31/2021 12:20 AM EDT) Phosphorus 3.5 2.5 - 4.5 mg/dL [facility] Blood 12/31/2021 12:2 0 AM EDT 12/31/2021 12:41 AM EDT Narrative Resulting Agency Comment Spec In Lab Sobeida Jimenez MD CHEMISTRY ORDERABLES Performing Organization Address [facility] de Phone Number [facility] [place] [address] * Magnesium (12/31/2021 12:20 AM EDT) Magnesium 0.87 0.69 - 1.07 mmol/L [facility] [facility] Blood 12/31/2021 12:2 0 AM EDT 12/31/2021 12:41 AM EDT Narrative Resulting Agency Comment Spec In Lab Sobeida Jimenez MD CHEMISTRY ORDERABLES Performing Organization Address [facility] de Phone Number [facility] [place] [address] * (ABNORMAL) Basic Metabolic Panel (non-fasting) (12/31/2021 [...] CHEMISTRY ORDERABLES [facility] [place] [address] documented in this encounter Visit Diagnoses Diagnosis SVT (supraventricular tachycardia) Other specified cardiac dysrhythmias Non-ST elevation UT (NSTEMI) Acute myocardial infarction, unspecified site, episode [...] Heparin UFH Level - Per Protocol, Routine 0733 (New Bag - Provider: Patricia Jacobs RN) [...] Routine documented in this encounter Care Teams Briquette Operator Relationship Specialty Start Date End Date Polo Pearce PA [address] [place] [address] PCP - General Internal Medicine 06/09/21 documented as of this encounter
--- OUTSIDE RECORDS SUMMARY | 2024-01-24 21:14 | XMS_ITS | Encounter Summary ---
Author Organization [facility] [place] [address] Care Team Providers Care Millinery Designer Name Role Phone Polo Pearce Primary Care Provider [phone] Encounter Details Date Type Department Care Team (Late st Contact Info) Description 07/07/2022 Telephone Cardiology at [address] [address] Jaspreet Kinsey MD [facility] [place] [address] Social History Tobacco Use Types Packs/Day Years [...] PM EST Office Visit Cardiology at [address] [place] [address] Jaspreet Kinsey MD [facility] [place] [address] documented as of this encounter Visit Diagnoses Not on filedocumented in this encounter Care Teams Millinery Designer Relationship Specialty Start Date End Date Polo Pearce PA [address] [place] [address] PCP - General Internal Medicine 06/09/21 documented as of this encounter
--- OUTSIDE RECORDS SUMMARY | 2024-01-24 21:14 | XMS_ITS | Encounter Summary ---
[place] [address] Care Team Providers Care Director Of Operations For Therapy Name Role Phone Polo Pearce Primary Care Provider [phone] Reason for Visit * Reason Onset Date Comments Chest Pain 07/27/2022 Shortness of Breath 07/27/2022 Fatigue 07/27/2022 Encounter Details Date Type Department Care Team (Late st Contact Info) Description 07/27/2022 Telephone Cardiology at [address] [address] Jaspreet Kinsey MD [facility] [place] [address] Chest Pain; Shortness of Breath; Fatigue Social [...] EDT Florencia has been admitted inpatient at [facility]. * Telephone Encounter - Maria Luisa Aide R - 07/27/2022 3:35 PM EDT Patient called and said she is now in [facility]. She said they did a CT scan and found blood clots on her lungs. She also has a fluid buildup. Please call her @ [phone] * Telephone Encounter - Nilda Mayes, RN [...] for assessment. Plan: Florencia will go to [facility] for evaluation. documented in this encounter Plan of Treatment Upcoming Encounters Date Type Department Care Team (Late st Contact Info) Description 02/10/2024 1:00 PM EST Office Visit Cardiology at [address] [place] [phone] Jaspreet Kinsey MD [facility] [place] [address] documented as of this encounter Visit Diagnoses Not on filedocumented in this encounter Care Teams Director Of Operations For Therapy Relationship Specialty Start Date End Date Polo Pearce PA [address] [place] [address] PCP - General Internal Medicine 06/09/21 documented as of this encounter
--- OUTSIDE RECORDS SUMMARY | 2024-01-24 21:14 | XMS_ITS | Encounter Summary ---
Author Organization [place] [address] Care Team Providers Care Mat Machine Tender Name Role Phone Polo Pearce Primary Care Provider [phone] Reason for Referral * Consultation (Routine) - Closed Specialty Diagnoses / Procedures Referred By Jayant harris Referred To Contact Vascular Surgery Diagnoses Pulmonary embolism, unspecified chronicity, unspecified pulmonary embolism type, unspecified whether acute cor pulmonale present ROUTINE, SALVATORE, BLE DVT Vascular medicine PE clinic: seemingly unprovoked small PE. review consideration of hypercoagulability testing Jaspreet Kinsey MD [facility] [place] [address] Elvin Maya MD [facility] [place] [address] Referral ID Status Reason Start Date Expiration Date V isits Requested Visits Authorized [id number] Closed Consult, Test & Treat 07/30/2022 07/30/2023 1 1 Reason for Visit * Reason Comments Coronary Artery Disease Congestive Heart Failure HFpEF Chest Pain Encounter Details Date Type Department Care Team (Late st Contact Info) Description 07/30/2022 9:20 AM EDT Office Visit Cardiology at [address] [place] [phone] Jaspreet Kinsey MD [facility] [place] [address] Heart failure with preserved ejection fraction, unspecified [...] Intercurrently, patient presented earlier this week to [facility] with an abrupt increase in fatigue/dyspnea x [...] a significant increase in UOP; however, at [facility] notes they gave me something that they [...] DAYS ??? fluticasone propionate (FLONASE) 50 mcg/actuation [place], Suspension 1 spray, Each Nare, DAILY ??? [...] fraction 05/2021: subacute, presented to [facility] with RUQ pain, weight gain, and progressive [...] summary and medication administration record from [facility] to see what was given to her [...] ventricular size/function - TTE RTC 2-3 months Japsreet Kinsey MD documented in this encounter Miscellaneous [...] summary and medication administration record from [facility] to see what was given to her to effect UOP positively - Diuresis: bumex 1 qd - Cardioprotection: - SGLT2i: jardiance - MRA: aldactone 25 documented in this encounter Plan of Treatment Upcoming Encounters Date Type Department Care Team (Late st Contact Info) Description 02/10/2024 1:00 PM EST Office Visit Cardiology at [address] [address] Jaspreet Kinsey MD [facility] [place] [address] Scheduled Referrals Name Type Priority Associated Diagnoses [...] dysrhythmias documented in this encounter Care Teams Mat Machine Tender Relationship Specialty Start Date End Date Polo Pearce PA [address] [place] [address] PCP - General Internal Medicine 06/09/21 documented as of this encounter
--- OUTSIDE RECORDS SUMMARY | 2024-01-24 21:14 | XMS_ITS | Encounter Summary ---
Author Organization [facility] [place] [address] Care Team Providers Care Relief Man Name Role Phone Polo Pearce Primary Care Provider [phone] Encounter Details Date Type Department Care Team (Late st Contact Info) Description 09/17/2021 Telephone Cardiology at [address] [address] Jaspreet Kinsey MD [facility] [place] [address] Social History Tobacco Use Types Packs/Day Years [...] Please call on her work phone @ [phone]. Or you may leave a message on her cell phone @ [phone] documented in this encounter Plan of Treatment Upcoming Encounters Date Type Department Care Team (Late st Contact Info) Description 02/10/2024 1:00 PM EST Office Visit Cardiology at [address] [place] [address] Jaspreet Kinsey MD [facility] [place] [address] documented as of this encounter Visit Diagnoses Not on filedocumented in this encounter Care Teams Relief Man Relationship Specialty Start Date End Date Polo Pearce PA [address] [place] [address] PCP - General Internal Medicine 06/09/21 documented as of this encounter
--- OUTSIDE RECORDS SUMMARY | 2024-01-24 21:14 | XMS_ITS | Encounter Summary ---
Author Organization [facility] [address] Care Team Providers Care Creative Assistant Name Role Phone Polo Pearce Primary Care Provider [phone] Encounter Details Date Type Department Care Team (Late st Contact Info) Description 09/16/2021 Telephone Cardiology at [address] [address] Jaspreet Kinsey MD [facility] [place] [address] Social History Tobacco Use Types Packs/Day Years [...] for calling her back during the day: [phone]. Or you may leave a message on her cell phone: [phone]. documented in this encounter Plan of Treatment Upcoming Encounters Date Type Department Care Team (Late st Contact Info) Description 02/10/2024 1:00 PM EST Office Visit Cardiology at [address] [place] [address] Jaspreet Kinsey MD [facility] [place] [address] documented as of this encounter Visit Diagnoses Not on filedocumented in this encounter Care Teams Creative Assistant Relationship Specialty Start Date End Date Polo Pearce PA [address] [place] [address] PCP - General Internal Medicine 06/09/21 documented as of this encounter
--- OUTSIDE RECORDS SUMMARY | 2024-01-24 21:14 | XMS_ITS | Encounter Summary ---
Author Organization [facility] [place] [place] [address] Care Team Providers Care Turn Laster Name Role Phone Polo Pearce Primary Care Provider [phone] Encounter Details Date Type Department Care Team (Late st Contact Info) Description 08/08/2021 Orders Only Cardiology at [address] [address] Umberto Joy PA [facility] [place] [address] AVNRT (AV makayla re-entry tachycardia) (Primary Dx); [...] PM EST Office Visit Cardiology at [address] [phone] Jaspreet Kinsey MD [facility] [place] [address] documented as of this encounter Visit Diagnoses Diagnosis AVNRT (AV makayla re-entry tachycardia)- Primary Other specified cardiac dysrhythmias Heart failure with preserved ejection fraction, unspecified HF chronicity SVT (supraventricular tachycardia) Other specified cardiac dysrhythmias documented in this encounter Care Teams Turn Laster Relationship Specialty Start Date End Date Polo Pearce PA [address] [place] [address] PCP - General Internal Medicine 06/09/21 documented as of this encounter
--- OUTSIDE RECORDS SUMMARY | 2024-01-24 21:14 | XMS_ITS | Encounter Summary ---
[place] [address] Care Team Providers Care Combining Machine Operator Name Role Phone Polo Pearce Primary Care Provider [phone] Encounter Details Date Type Department Care Team (Late st Contact Info) Description 06/12/2021 External [place] [phone] Social History Tobacco Use Types Packs/Day Years [...] PM EST Office Visit Cardiology at [address] [place] [phone] Jaspreet Kinsey MD [facility] [address] documented as of this encounter Procedures Procedure Name Priority Date/Time Associated Diagnosis Comments ECG SCAN Routine 06/12/2021 documented in this encounter Results * Scan Doc: ECG (06/12/2021) Historical Provider MD MEDIA MGR SCAN EX T ORDR/RSLT documented in this encounter Visit Diagnoses Not on filedocumented in this encounter Care Teams Combining Machine Operator Relationship Specialty Start Date End Date Polo Pearce PA [address] [place] [address] PCP - General Internal Medicine 06/09/21 documented as of this encounter
--- OUTSIDE RECORDS SUMMARY | 2024-01-24 21:14 | XMS_ITS | Encounter Summary ---
Author Organization [facility] [place] [address] Care Team Providers Care Command And Control Specialist Name Role Phone Polo Pearce Primary Care Provider [phone] Encounter Details Date Type Department Care Team (Late st Contact Info) Description 06/30/2022 Orders Only Cardiology at [address] [address] Jaspreet Kinsey MD [facility] [place] [address] Chest pain, unspecified type Social History Tobacco [...] PM EST Office Visit Cardiology at [address] [phone] Jaspreet Kinsey MD [facility] [place] [address] documented as of this encounter Visit Diagnoses Diagnosis Chest pain, unspecified type documented in this encounter Care Teams Command And Control Specialist Relationship Specialty Start Date End Date Polo Pearce PA [address] [place] [address] PCP - General Internal Medicine 06/09/21 documented as of this encounter
--- OUTSIDE RECORDS SUMMARY | 2024-01-24 21:14 | XMS_ITS | Encounter Summary ---
Author Organization [facility] Address [facility] [place] [address] Care Team Providers Care Senior Gl Accountant Name Role Phone Polo Pearce Primary Care Provider [phone] Encounter Details Date Type Department Care Team (Late st Contact Info) Description 03/10/2022 External [place] [address] Social History Tobacco Use Types Packs/Day Years [...] PM EST Office Visit Cardiology at [address] [place] [address] Jaspreet Kinsey MD [facility] [place] [address] documented as of this encounter Procedures Procedure Name Priority Date/Time Associated Diagnosis Comments ECG SCAN Routine 03/10/2022 documented in this encounter Results * Scan Doc: ECG (03/10/2022) Historical Provider MEDIA MGR SCAN EX T ORDR/RSLT documented in this encounter Visit Diagnoses Not on filedocumented in this encounter Care Teams Senior Gl Accountant Relationship Specialty Start Date End Date Polo Pearce PA [address] [place] [address] PCP - General Internal Medicine 06/09/21 documented as of this encounter
--- OUTSIDE RECORDS SUMMARY | 2024-01-24 21:14 | XMS_ITS | Encounter Summary ---
[place] [address] Care Team Providers Care Sap Administrator Name Role Phone Polo Pearce Primary Care Provider [phone] Encounter Details Date Type Department Care Team (Late st Contact Info) Description 07/28/2022 Telephone Cardiology at [address] [address] Jaspreet Kinsey MD [facility] [place] [address] Social History Tobacco Use Types Packs/Day Years [...] and would like a call back @ [phone] * Telephone Encounter - Nilda Mayes, RN - 07/28/2022 10:57 AM EDT Indira says she is being discharged to home from [facility] today. Home diuretic therapy isn't working well. When I'm in the hospital, it really comes down again. She asks if the fluid pill needs to be changed. Plan: to request discharge records from [facility] when available. * Telephone Encounter - Brenda Callahan - 07/28/2022 10:44 AM EDT PT called she was advised to call this office. She has a few questions. Prior notes in chart she has been at [facility]. She would like a call back from a nurse please. [phone] documented in this encounter Plan of Treatment Upcoming Encounters Date Type Department Care Team (Late st Contact Info) Description 02/10/2024 1:00 PM EST Office Visit Cardiology at [address] [place] [phone] Jaspreet Kinsey MD [facility] [place] [address] documented as of this encounter Visit Diagnoses Not on filedocumented in this encounter Care Teams Sap Administrator Relationship Specialty Start Date End Date Polo Pearce PA [address] [place] [address] PCP - General Internal Medicine 06/09/21 documented as of this encounter
--- OUTSIDE RECORDS SUMMARY | 2024-01-24 21:14 | XMS_ITS | Encounter Summary ---
Author Organization [facility] [place] [address] Care Team Providers Care Web Application Dev Specialist Name Role Phone Polo Pearce Primary Care Provider [phone] Encounter Details Date Type Department Care Team (Late st Contact Info) Description 12/30/2021 Telephone Cardiology at [address] [address] Ciro Lovell MD [facility] [place] [address] Social History Tobacco Use Types Packs/Day Years [...] 51 year old female with mild PAH ([facility] 06/2021) without e/o parenchymal lung disease or L-sided dysfunction, ? Prior [place], C2 obesity, spastic lung disease and MARYLOU/HS [...] mild restriction, normal diffusion; no volumes done [facility] 2019 clean coronaries [facility] 06/2021 Hemodynamics: [...] 1:00 PM EST Office Visit Cardiology at [address] [place] [address] Jaspreet Kinsey MD [facility] [place] [address] documented as of this encounter Visit Diagnoses Not on filedocumented in this encounter Care Teams Web Application Dev Specialist Relationship Specialty Start Date End Date Polo Pearce PA [address] [place] [address] PCP - General Internal Medicine 06/09/21 documented as of this encounter
--- OUTSIDE RECORDS SUMMARY | 2024-01-24 21:14 | XMS_ITS | Encounter Summary ---
Author Organization [facility] Address [facility] [place] [address] Care Team Providers Care Warehouse Administrative Assistant Name Role Phone Polo Pearce Primary Care Provider [phone] Reason for Visit * Reason Comments Congestive Heart Failure Encounter Details Date Type Department Care Team (Late st Contact Info) Description 03/16/2022 3:20 PM EST Office Visit Cardiology at [address] [address] Jaspreet Kinsey MD [facility] [place] [address] Heart failure with preserved ejection fraction, unspecified [...] She states when she was [facility] she felt OK, but shortly thereafter [...] Rfl: ??? fluticasone propionate (FLONASE) 50 mcg/actuation [place], Suspension, 1 spray by Each Nare routedaily., [...] PM EST Office Visit Cardiology at [address] [place] [address] Jaspreet Kinsey MD [facility] [place] [address] documented as of this encounter Visit Diagnoses Diagnosis Heart failure with preserved ejection fraction, unspecified HF chronicity SVT (supraventricular tachycardia) Other specified cardiac dysrhythmias documented in this encounter Care Teams Warehouse Administrative Assistant Relationship Specialty Start Date End Date Polo Pearce PA [address] [place] [address] PCP - General Internal Medicine 06/09/21 documented as of this encounter
--- OUTSIDE RECORDS SUMMARY | 2024-01-24 21:15 | XMS_ITS | Encounter Summary ---
[place] [address] Care Team Providers Care Aircraft Log Clerk Name Role Phone Tim Rogers DNP Primary Care Provider [phone] Reason for Visit * Reason Onset Date Comments Other 10/18/2020 Pt requesting ca ll back from MD Encounter Details Date Type Department Care Team (Late st Contact Info) Description 10/18/2020 [place] [phone] Olive Gonzales RN Other (Pt requesting call [...] Olive Gonzales RN Department of Pulmonary 5C, [facility] / Pager: [phone] documented in this encounter Plan of Treatment Upcoming Encounters Date Type Department Care Team (Late st Contact Info) Description 02/10/2024 1:00 PM EST Office Visit Cardiology at [address] [place] [address] Jaspreet Kinsey MD [facility] [place] [place] [address] documented as of this encounter Visit Diagnoses Not on filedocumented in this encounter Care Teams Aircraft Log Clerk Relationship Specialty Start Date End Date Tim Rogers DNP PCP - General Family Medicine 08/28/19 06/08/21 documented as of this encounter
--- OUTSIDE RECORDS SUMMARY | 2024-01-24 21:15 | XMS_ITS | Encounter Summary ---
[place] [address] Care Team Providers Care Senior Infrastructure Architect Name Role Phone Tim Rogers DNP Primary Care Provider [phone] Encounter Details Date Type Department Care Team (Late st Contact Info) Description 05/28/2021 Telephone [place] [address] Beryl Grider Social History Tobacco Use Types [...] PM EST Office Visit Cardiology at [address] [place] [address] Jaspreet Kinsey MD [facility] [place] [address] documented as of this encounter Visit Diagnoses Not on filedocumented in this encounter Care Teams Senior Infrastructure Architect Relationship Specialty Start Date End Date Tim Rogers DNP PCP - General Family Medicine 08/28/19 06/08/21 documented as of this encounter
--- OUTSIDE RECORDS SUMMARY | 2024-01-24 21:15 | XMS_ITS | Encounter Summary ---
[place] [address] Care Team Providers Care Materials Research Engineer Name Role Phone Tim Rogers DNP Primary Care Provider [phone] Encounter Details Date Type Department Care Team (Late st Contact Info) Description 05/30/2021 [place] [phone] Beryl Grider Social History Tobacco Use Types [...] Beryl Grider - 05/30/2021 11:10 AM EDTSummary: [facility] Per Dr. Miller via MD, needs images sent to our PACS system for mutual pt. Called PCP's (Polo Pearce) office at [facility] & Nayeli Martin in Radiology to Assist in sending images of chest x- ray from May 03 & CT scan of abdomen ( maybe chest) from May 27 to our PACS system with Pulm # [phone] opt 1 documented in this encounter Plan of Treatment Upcoming Encounters Date Type Department Care Team (Late st Contact Info) Description 02/10/2024 1:00 PM EST Office Visit Cardiology at [address] [place] [address] Jaspreet Kinsey MD [facility] [place] [address] documented as of this encounter Visit Diagnoses Not on filedocumented in this encounter Care Teams Materials Research Engineer Relationship Specialty Start Date End Date Tim Rogers DNP PCP - General Family Medicine 08/28/19 06/08/21 documented as of this encounter
--- OUTSIDE RECORDS SUMMARY | 2024-01-24 21:15 | XMS_ITS | Encounter Summary ---
[place] [address] Care Team Providers Care Records Clerk Name Role Phone Tim Rogers DNP Primary Care Provider [phone] Reason for Visit * Reason Onset Date Comments Nasal Congestion 09/02/2020 Cough 09/02/2020 Shortness of Breath 09/02/2020 Anorexia 09/02/2020 Lack of appetite Encounter Details Date Type Department Care Team (Late st Contact Info) Description 09/02/2020 Telephone [place] [address] Renetta Graham RN Nasal Congestion; Cough; Shortness [...] radha annita. Return Contact Number: [facility] - [phone], ask for Mihaela Preferred Pharmacy: Maulik Alvarez on file. documented in this encounter Plan of Treatment Upcoming Encounters Date Type Department Care Team (Late st Contact Info) Description 02/10/2024 1:00 PM EST Office Visit Cardiology at [address] [phone] Jaspreet Kinsey MD [facility] [place] [address] documented as of this encounter Visit Diagnoses Not on filedocumented in this encounter Care Teams Records Clerk Relationship Specialty Start Date End Date Tim Rogers DNP PCP - General Family Medicine 08/28/19 06/08/21 documented as of this encounter
--- OUTSIDE RECORDS SUMMARY | 2024-01-24 21:15 | XMS_ITS | Encounter Summary ---
[place] [address] Care Team Providers Care Column Precaster Name Role Phone Tim Rogers DNP Primary Care Provider [phone] Reason for Visit * Reason Onset Date Comments Appointment 09/12/2020 Follow up Encounter Details Date Type Department Care Team (Late st Contact Info) Description 09/12/2020 [place] [address] Renetta Graham RN Appointment (Follow [...] PM EST Office Visit Cardiology at [address] [place] [address] Jaspreet Kinsey MD [facility] [place] [place] [address] documented as of this encounter Visit Diagnoses Not on filedocumented in this encounter Care Teams Column Precaster Relationship Specialty Start Date End Date Tim Rogers DNP PCP - General Family Medicine 08/28/19 06/08/21 documented as of this encounter
--- OUTSIDE RECORDS SUMMARY | 2024-01-24 21:15 | XMS_ITS | Encounter Summary ---
[place] [address] Care Team Providers Care Envelope Sealer Name Role Phone Tim Rogers DNP Primary Care Provider [phone] Reason for Visit * Reason Onset Date Comments Other 10/25/2020 Regarding Ziopat ch Encounter Details Date Type Department Care Team (Late st Contact Info) Description 10/25/2020 [place] [id number] Olive Gonzales RN Other (Regarding Ziopatch) Social [...] reach out to Pt. Pt must call [phone] to request Ziopatch. Olive Gonzales RN Department of Pulmonary 5C, [facility] / Pager: [phone] documented in this encounter Plan of Treatment Upcoming Encounters Date Type Department Care Team (Late st Contact Info) Description 02/10/2024 1:00 PM EST Office Visit Cardiology at [address] [place] [address] Jaspreet Kinsey MD [facility] [place] [address] documented as of this encounter Visit Diagnoses Not on filedocumented in this encounter Care Teams Envelope Sealer Relationship Specialty Start Date End Date Tim Rogers DNP PCP - General Family Medicine 08/28/19 06/08/21 documented as of this encounter
--- OUTSIDE RECORDS SUMMARY | 2024-01-24 21:15 | XMS_ITS | Encounter Summary ---
[place] [address] Care Team Providers Care Exhaust Machine Operator Name Role Phone Polo Pearce Primary Care Provider [phone] Reason for Visit * Auth/Cert Specialty Diagnoses / Procedures Referred By Jayant t Referred To Contact Diagnoses NSTEMI (non-ST elevated myocardial infarction) NSTEMI Procedures EMERGENCY OBSVO Referral ID Status Reason Start Date Expiration Date Visits Re quested Visits Authorized [id number] 1 1 Encounter Details Date Type Department Care Team (Late st Contact Info) Description 06/09/2021 8:15 AM EDT - 06/09/2021 9:15 AM EDT [place] [address] Aaron Ash MD [facility] [place] [address] CARDIAC CATHETERIZATION Social History Tobacco Use Types [...] Loida Roque Patient Age: 51 y.o. Language: Malawian Race: White Ethnicity: Not nor Admit date: [...] in a week and prn ?? Consider [place] as an out patient Inpatient Provider Contact Information: Dr. Mario Zaidi PA-C [phone] Discharge Diagnoses (Hospital Problems) and Secondary Diagnoses [...] change from prior in 08/2019. ?? Procedure Complete-09079. Image enhancement Definity was used for left [...] questions please contact the health resident care assistant that requested your imaging first. CXR 06/08/2021 [...] hysterectomy, Insomnia, and migraine who presents to [facility] with RUQ pain that radiated to [...] 15. ?? Hospital Course: On admission to [facility], the patient had no complaints of chest pain or shortness of breath at rest.Telemetry was attached which showed normal sinus rhythm. Heparin drip was infusing. [facility] records/transfer records were reviewed. Baseline labs were checked and/or drawn. Chest Pain, OK ruled out, Echo showed preserved LVEF Given the patient's risk factors, chronic non-specific ST-T changes on ECG, and here at [facility] normaltroponin as well as reproducible chest tenderness [...] significant weight, however during her stay at [facility] now she lost only 0.9 kg, to [...] needed Follow up Appointments: PCP Tim Rogers, RADIOLOGICAL TECHNOLOGIST [phone] to see you in a week (patient to set this up) Mel placed on 06/09/2021 Cardiology to see in a month and prn. Dr. Kinsey to see the patient in [place] on July 23 at 920 am. Please call [phone] with questions. Home oxygen therapy: N/A Arrangements for VNA/home care: none Future Appointments and Orders Future Appointments and Orders Future Appointments Provider Department Dept Phone 07/23/2021 8:20 AM Jaspreet Kinsey MD Cardiology at [place] Arrive at: [facility] [address] [phone] Future Orders Complete By Expires Ziopatch 48 Hrs-15 Days [[id number] CPT(R)] 06/09/2021 12/09/2021 Process Instructions: Scheduling Instructions: Questions: Does the patient have a pacemaker? If yes provide HI/LO settings: Apply for 7 or 14 days?: 14 Where will study be performed?: [facility] Clin[facility] Basic Metabolic Panel (non-fasting) [LAB15 Custom] 06/16/2021 (Approximate) 06/09/2022 Process Instructions: INCLUDES: Calcium, BUN, Creat, GFR, Glucose, Lytes Scheduling Instructions: Comments: Questions: Discharge References/Attachments None documented in this encounter Discharge Instructions * Discharge Instructions* Deja Zaidi PA - 06/08/2021 1:56 PM EDT Return to work: One week Driving: as needed Follow up Appointments: PCP Tim Rogers, RADIOLOGICAL TECHNOLOGIST [phone] to see you in a week (patient to set this up) Ziopatch placed on 06/09/2021 Cardiology to see in a month and prn. Dr. Kinsey to see the patient in [place] on July 23 at 920 am. Please call [phone] with questions. Home oxygen therapy: N/A Arrangements for VNA/home care: none documented in this encounter Medications at Time of Discharge Medication Sig Dispensed Refills Start Date End Date rOPINIRole (Requip) 1 mg Tablet Take 2 mg by mouth 2 times daily. 07/16/2020 loratadine (Claritin) 10 mg Tablet Take 10 mg by mouth daily as needed. fluticasone propionate (FLONASE) 50 mcg/actuation [place], Suspension 1 spray by Each Nare route [...] Nutrition Plan: Pt seen for Na2gm diet. Teletypewriter Operator informed pt of current diet orders and their restrictions. Pt expressed understanding and informed this contract writer that she tries to limit salt use at home. 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 Rocio Rosenthal Pager: [phone] * Deja Zaidi PA - 06/09/2021 9:14 AM EDT Inpatient Cardiology Discharge Day Note Patient Name: Loida Roque Service: MESMERIST / PA Responsible Attending: Mario Hallman MD [...] (from the past 24 hour(s)) urine, qualitative ([facility]/P/NL) Result Value Ref Range Spec [place] UA 1.010 1.006 - 1.030 HCG Qual [...] seen on recent CT scan presents to [facility] with a NSTEMI. She has an [...] with Dr. Hallman. ?? JOCY Hernandez Pager [phone] JOCY MCKOY 06/09/2021 Associated attestation - Mario Hallman MD - 06/09/2021 9:37 PM EDT Cardiology Attending Addendum I shared this visit with JOCY Zaidi and guided the medical decision- making. I explained to patient the findings of echo, R heart catheterization and our diagnostic impression and medications (furosemide and empagliflozin) and possible adverse events. More than 30 minutes were spent in mykh-yi-[id number] contact with patient and with arranging discharge and coordinating follow-up. * Silvino Robles, STOCKKEEPER - 06/09/2021 5:48 AM EDT Respiratory Therapy [...] Jaspreet Pardo - 06/08/2021 8:34 PM EDT Marketing And Public Relations Manager Encounter Note Patient Name: Loida Roque : [id number] MR#: [id number] Admit Date: 06/07/2021 3:49 PM Hospital Day 0 days Narrative: Initial rounding visit to introduce care navigator services and to assess patient interest. Patient [...] Day Note Patient Name: Loida Roque Service: MESMERIST / PA Responsible Attending: Mario Hallman MD [...] ??? heparin (porcine) infusion 1,100 Units/hr (06/08/21 3722) PRN Meds:hydrOXYzine, heparin (porcine) infusion AND heparin [...] PCR Not Detected Not Detected SARS-CoV-2 Source MESMERIST Swab Troponin Result Value Ref Range Troponin-T [...] seen on recent CT scan presents to [facility] with a NSTEMI. She has an [...] with Dr. Hallman. ?? 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 ??? fluticasone propionate (FLONASE) 50 mcg/actuation [place], Suspension 1 spray by Each Nare route [...] seen on recent CT scan presents to [facility] with a NSTEMI. She has an elevated trop, BNP and lateral EKG changes. Patient is now awaiting an Echo and cardiac cath. Neurology consult called in to determine if she needs imaging prior to her Echo and cath given garbled speech a week ago. Stable at this time. TREATMENT PLAN: NSTEMI Admit to [facility] for telemetry monitoring Serial enzymes and [...] JOCY Hernandez 06/07/2021 Provider: JOCY MCKOY Pager [phone] 06/07/2021 Associated attestation - Mario Hallman MD [...] COVID test: Lab Results Component Value Date [id number] Not Detected 06/07/2021 Present on Admission: ??? [...] Primary care provider on file: Tim Rogers, RADIOLOGICAL TECHNOLOGIST [phone] Pharmacy: [id number] - [place], [place] - [address] [facility] [address] Advance Care Planning: Attempt Cardiopulmonary Resuscitation - Inpatient <no information> -Advanced Directive: No, declines (Boby (spouse) SDM) Current Functional Ability: Independent Functional Status Prior to Admission: Independent Home Environment: Others in the home: spouse. Current Living Arrangements: home/apartment/condo. Accessibility Concerns: . Current DME: none [address] [place] [address] Social & Family Supports: All names listed [...] private vehicle when medically ready. Registered Nurse Glycerin Operator / Public Works Commissioner will continue to follow patient???s progress and [...] Daily. ??? 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 Consider PATIENT TRANSPORTER consult for full evaluation and diet recommendations. [...] for further details. JOCY MCKOY 06/07/2021 Pager [phone] documented in this encounter Plan of Treatment Upcoming Encounters Date Type Department Care Team (Late st Contact Info) Description 02/10/2024 1:00 PM EST Office Visit Cardiology at [address] [place] [address] Jaspreet Kinsey MD [facility] [place] [address] documented as of this encounter Procedures Procedure [...] Modality Other Narrative 07/01/2021 9:29 AM EDT [facility] ? Zio Patch? Ambulatory Cardiac [...] as described ?? Kurt Larose MD, PhD, [facility] Cardiac Electrophysiology Mario Hallman MD CARDIAC SERVICES ORD ERABLES * CARDIAC CATHETERIZATION (06/09/2021 9:05 AM EDT) Anatomical Region Laterality Modality Other Narrative 06/09/2021 9:09 AM EDT ?[facility] ? Cardiac Catheterization/Intervention Report ? Patient Name: Neisha, Loida ? Procedure Date: 06/09/2021 ? A #: [id number] ? Primary Physician: Nilsa, Aaron Santana ? Case #: [id number] ? File Name: [id number] ? Catheterization Order Number: [id number] ? [facility] ? Final Report [place], [place] ? Patient Name: ? Loida Neisha ? ID#: ?[id number] ? : ?1970 ? Procedure Date: ? June 09, 2021 ?Case #: ? [id number] ? Room: ? 1 ? Case Physician: [...] was Urgent. The indication for ?the label designer visit is other indication. Chest pain symptom [...] Aaron Ash MD - 06/23/[address] [facility] Cardiac Catheterization/Intervention Report Patient Name: Loida Roque Procedure Date: 06/09/2021 A #: [id number] Primary Physician: Aaron Ash Case #: [id number] File Name: [id number] Catheterization Order Number: [id number] [facility] FinalReport [place], [place] Patient Name: Loida Roque ID#:[id number] :1970 Procedure Date: June 09, 2021 Case [...] patientwas designated as ASA Class III. The [facility] clinical frailty scale is 2:Well. Diagnostic [...] procedure was Urgent. The indicationfor the label designer visit is other indication. Chest pain symptomassessment [...] 3:37 AM EDT) NT-proBNP 911(H) <=124 pg/mL [facility] Blood Venous Draw / Unknown 06/09/2021 3:37 AM EDT 06/09/2021 3:59 AM EDT Narrative Resulting Agency Comment Spec In Lab Deja SANDRA CHEMISTRY ORDERABLES [facility] [place] [address] * Differential, Automated (06/09/2021 3:37 AM EDT) Pathologist [facility] Neutrophil % 64.9 % [facility] Neutrophil Absolute 5.12 1.70 - 6.10 x10(3)/[facility] Lymph % 21.9 % [facility] Lymphocytes Abs 1.7 0.9 - 3.2 x10(3)/[facility] Monocyte % 8.6 % [facility] Monocyte Abs 0.7 0.3 - 0.9 x10(3)/[facility] Eos % 3.4 % [facility] Eosinophils Abs 0.3 0.0 - 0.4 x10(3)/[facility] Basophil % 0.8 % [facility] Baso Absolute 0.1 0.0 - 0.1 x10(3)/[facility] Immature Gran % 0.40 % [facility] Comment: Immature granulocytes(IG's)percentage and absolute count will include metamyelocytes, myelocytes, and promyelocytes. Blood smears from CBCs yielding IG's will be scanned manually for concordance. If this scan disagrees with the automated IG or if promyelocytes are noted, a manual differential will be performed. Immature Gran Absolute 0.03 0.00 - 0.04 x10(3)/[facility] Blood 06/09/2021 3:37 AM EDT 06/09/2021 3:58 AM EDT Narrative Resulting Agency Comment Spec In Lab Deja SANDRA HEMATOLOGY ORDERABLE S [facility] [place] [address] * (ABNORMAL) Hemogram (06/09/2021 3:37 AM EDT) White Blood Cell 7.9 4.0 - 9.5 x10(3)/mc L [facility] Red Blood Cell 4.88 4.00 - 5.21 x10(6)/mc L [facility] Hemoglobin 15.2 11.7 - 15.5 g/dL [facility] Hematocrit 46.5(H) 35.7 - 45.8 % [facility] Mean Cell Volume 95.3(H) 82.6 - 94.4 fL [facility] Mean Cell Hemoglobin 31.1 27.1 - 32.0 pg [facility] Mean Cell Hemoglobin Concentration 32.7 31.7 - 35.0 g/dL [facility] Platelet 334 145 - 357 x10(3)/mc L [facility] RDW Standard Deviation 49.2(H) 37.0 - 46.0 [facility] RDW coefficient of variation 14.5(H) 11.5 - 14.1 % [facility] Mean Platelet Volume 10.2 7.6 - 12.9 [facility]OR[facility] NRBC% auto 0.0 % [facility] NRBC Absolute 0.000 0.000 - 0.000 x10(3)/mc L [facility] Blood 06/09/2021 3:37 AM EDT 06/09/2021 3:58 AM EDT Narrative Resulting Agency Comment Spec In Lab Deja SANDRA HEMATOLOGY ORDERABLE S [facility] [place] [address] * (ABNORMAL) BMP w/fasting Glucose (06/09/2021 3:37 AM EDT) [facility] Signature Glucose Fasting 103(H) 65 - 99 mg/dL [facility] Comment: ?Fasting* Glucose Interpretive [...] Urea Nitrogen 23(H) 8 - 18 mg/dL [facility] Creatinine 0.86 0.70 - 1.20 mg/dL [facility] Sodium 137 135 - 145 mmol/L [facility] Potassium 4.1 3.5 - 5.0 mmol/L [facility] Comment: Please note: ??Patients with WBC >100,000 may have falsely elevated Potassium levels. ??For accurate Potassium quantification in these patients send serum separator tube (gold top) for subsequent determinations. ??Contact the Clinical Chemistry Laboratory if there are any questions. Chloride 102 98 - 107 mmol/L [facility] Carbon Dioxide 22 22 - 31 mmol/L [facility] Anion Gap 13 5 - 15 mmol/L [facility] Calcium 9.3 8.5 - 10.5 mg/dL [facility] Est Glomerular Filtration Rate 78 >=60 mL/min/1. 73 m?? [facility] Comment: This patient? s [...] Hallman MD CHEMISTRY ORDERABLES Performing Organization Address [facility]/ZIP Co de Phone Number [facility] [place] [address] * Heparin (unfractionated) Level (06/08/2021 4:07 PM EDT) UF Heparin <0.04 IU/mL [facility] Comment: Heparin (anti-Xa) [...] [facility] [place]/ZIP Co de Phone Number [facility] [place] [address] * XR Chest PA & Lateral (Generic) [...] questions please contact the health resident care assistant that requested your imaging first. ? Electronically signed by: Magda Machado MD, [facility] ([phone]), at 06/08/2021 6:00 PM Narrative 06/08/2021 6:00 [...] have questions please contactthe health resident care assistant that requested your imaging first. Electronically signed by: Magda Machado MD, [facility] ([phone]), at 06/08/2021 6:00 PM Mario Hallman MD [...] questions please contact the health resident care assistant that requested your imaging first. ? Electronically signed by: Kiran Cantor MD, [facility] ([phone]), at 06/08/2021 2:35 PM Narrative 06/08/2021 2:35 [...] have questions please contactthe health resident care assistant that requested your imaging first. Electronically signed by: Kiran Cantor MD, [facility]([phone]), at 06/08/2021 2:35 PM Mario Hallman MD IMG MRI ORDERABLES * (ABNORMAL) CRP, acute inflammation (06/08/2021 11:58 AM EDT) C-Reactive Protein 28.1(H) <=4.9 mg/L [facility] Blood 06/08/2021 11:5 8 AM EDT 06/08/2021 12:04 PM EDT Narrative Resulting Agency Comment Spec In Lab Mario Hallman MD CHEMISTRY ORDERABLES [facility] [place] [address] * CK (06/08/2021 11:58 AM EDT) Creatine Kinase 30 0 - 160 unit/L [facility] Blood 06/08/2021 11:5 8 AM EDT 06/08/2021 12:04 PM EDT Narrative Resulting Agency Comment Spec In Lab Mario Hallman MD CHEMISTRY ORDERABLES Performing Organization Address [facility]/ZIP Co de Phone Number [facility] [place] [address] * (ABNORMAL) Sedimentation rate (06/08/2021 11:58 AM EDT) Sedimentation Rate Automated 53(H) 2 - 39 mm/hr [facility] Comment: Effective February 15, 2019 new capillary photometric technology has resulted in a change in reference ranges. It is recommended that each ESR result be reviewed with its own age appropriate reference range. Blood 06/08/2021 11:5 8 AM EDT 06/08/2021 12:04 PM EDT Narrative Resulting Agency Comment Spec In Lab Mario Hallman MD HEMATOLOGY ORDERABLE S Performing Organization Address [facility] Co de Phone Number [facility] [place] [address] * Heparin (unfractionated) Level (06/08/2021 11:58 AM EDT) UF Heparin 0.77 IU/mL [facility] Comment: Heparin (anti-Xa) [...] [facility] [place]/ZIP Co de Phone Number [facility] [place] [address] * urine, qualitative ([place]) (06/08/2021 11:51 AM EDT) Specific [place] Urine Automated 1.010 1.006 - 1.030 [facility] Human Chorionic Gonadotropin Qualitative, Urine Negative [facility] Comment: Dilute urine samples can result in a false negative test. Repeat testing on a first morning sample or a plasma quantitative hCG measurement is recommended. Urine 06/08/2021 11:5 1 AM EDT 06/08/2021 12:32 PM EDT Narrative Resulting Agency Comment Spec In Lab Mario Hallman MD URINE ORDERABLES [facility] [place] [address] * ECHO COMPLETE W CONTRAST (06/08/2021 11:09 AM EDT) Anatomical Region Laterality Modality Other 06/08/2021 9:35 AM EDT Narrative 06/08/2021 12:42 PM EDT ?[facility] ?[address] ? [place] [address] ?Voice: ?Fax: ? Echocardiogram Report Name: NEISHA LOIDA ? Study Date: 06/08/2021 09:35 AMBP: 109/69 mmHg ? Patient Location: ICCU^432^A : 1970 ? Height: 163 cm ? Account: [id number] Age: 51 yrs ? Weight: 95 kg Gender: Female ?BSA: 2.0 m2 Ordering Physician: DONALD Referring Physician: AJ HARTMAN Performed By: Aaron Herr RDCS Reason For Study: NSTEMI (non-ST elevated myocardial infarction) Exam Location: [facility]. Interpretation Summary 1. Left [...] significant change from prior in 08/2019. Procedure Complete-43676. Image enhancement Definity was used for left [...] Procedure Note Kai Haider MD - 06/08/2021 [facility] [address] [place] [address] Voice: Fax: Echocardiogram Report Name: LOIDA ROQUE Study Date: 209:35 AMBP: 109/69 mmHg Patient Location:[place] [address]^ : 1970 Height: 163 cm Account: [id number] Age: 51 yrs Weight: 95 kg Gender: Female BSA: 2.0 m2 Ordering Physician: DONALD Referring Physician: AJ HARTMAN Performed By: Aaron Herr RDCS Reason For Study: NSTEMI (non-ST elevated myocardial infarction) Exam Location: [facility]. Interpretation Summary 1. Left [...] significant change from prior in 08/2019. Procedure Complete-96811. Image enhancement Definity was used for left [...] AM EDT) UF Heparin 1.20(Crit ical) IU/mL [facility] Comment: Critical Result called [...] Lab Edie Costello MD HEMATOLOGY ORDERABLE S [facility] [place] [address] * (ABNORMAL) Differential, Automated (06/08/2021 4:41 AM EDT) Neutrophil % 71.8 % [facility] Neutrophil Absolute 8.09(H) 1.70 - 6.10 x10(3)/mc L [facility] Lymph % 18.0 % [facility] Lymphocytes Abs 2.0 0.9 - 3.2 x10(3)/mc L [facility] Monocyte % 5.7 % [facility] Monocyte Abs 0.6 0.3 - 0.9 x10(3)/mc L [facility] Eos % 3.5 % [facility] Eosinophils Abs 0.4 0.0 - 0.4 x10(3)/mc L [facility] Basophil % 0.6 % [facility] Baso Absolute 0.1 0.0 - 0.1 x10(3)/mc L [facility] Immature Gran % 0.40 % [facility] Comment: Immature granulocytes(IG's)percentage and absolute count will include metamyelocytes, myelocytes, and promyelocytes. Blood smears from CBCs yielding IG's will be scanned manually for concordance. If this scan disagrees with the automated IG or if promyelocytes are noted, a manual differential will be performed. Immature Gran Absolute 0.05(H) 0.00 - 0.04 x10(3)/mc L [facility] Blood 06/08/2021 4:41 AM EDT 06/08/2021 5:11 AM EDT Narrative Resulting Agency Comment Spec In Lab Deja SANDRA HEMATOLOGY ORDERABLE S [facility] [place] [address] * (ABNORMAL) Hemogram (06/08/2021 4:41 AM EDT) White Blood Cell 11.3(H) 4.0 - 9.5 x10(3)/ L [facility] Red Blood Cell 4.64 4.00 - 5.21 x10(6)/ L [facility] Hemoglobin 13.9 11.7 - 15.5 g/dL [facility] Hematocrit 43.0 35.7 - 45.8 % [facility] Mean Cell Volume 92.7 82.6 - 94.4 fL [facility] Mean Cell Hemoglobin 30.0 27.1 - 32.0 pg [facility] Mean Cell Hemoglobin Concentration 32.3 31.7 - 35.0 g/dL [facility] Platelet 312 145 - 357 x10(3)/ L [facility] RDW Standard Deviation 47.4(H) 37.0 - 46.0 fL [facility] RDW coefficient of variation 14.3(H) 11.5 - 14.1 % [facility] Mean Platelet Volume 10.8 7.6 - 12.9 fL [facility] NRBC% auto 0.0 % [facility] NRBC Absolute 0.000 0.000 - 0.000 x10(3)/ L [facility] Blood 06/08/2021 4:41 AM EDT 06/08/2021 5:11 AM EDT Narrative Resulting Agency Comment Spec In Lab Deja SANDRA HEMATOLOGY ORDERABLE S Performing Organization Address [facility] Co de Phone Number [facility] [place] [id number] * (ABNORMAL) Heparin (unfractionated) Level (06/08/2021 4:41 AM EDT) UF Heparin 1.06(Crit ical) IU/mL [facility] Comment: Critical Result called [...] MD HEMATOLOGY ORDERABLE S Performing Organization Address [facility] Co de Phone Number [facility] [place] [address] * (ABNORMAL) BMP w/fasting Glucose (06/08/2021 4:41 AM EDT) Glucose Fasting 95 65 - 99 mg/dL [facility] Comment: ?Fasting* Glucose Interpretive [...] Urea Nitrogen 21(H) 8 - 18 mg/dL [facility] Creatinine 0.87 0.70 - 1.20 mg/dL [facility] Sodium 138 135 - 145 mmol/L [facility] Potassium 4.1 3.5 - 5.0 mmol/L [facility] Comment: Please note: ??Patients with WBC >100,000 may have falsely elevated Potassium levels. ??For accurate Potassium quantification in these patients send serum separator tube (gold top) for subsequent determinations. ??Contact the Clinical Chemistry Laboratory if there are any questions. Chloride 103 98 - 107 mmol/L [facility] Carbon Dioxide 22 22 - 31 mmol/L [facility] Anion Gap 13 5 - 15 mmol/L [facility] Calcium 8.7 8.5 - 10.5 mg/dL [facility] Est Glomerular Filtration Rate 77 >=60 mL/min/1. 73 m?? [facility] Comment: This patient? s [...] Hallman MD CHEMISTRY ORDERABLES Performing Organization Address City/[facility]/ZIP Co de Phone Number [facility] [place] [address] * Troponin (06/08/2021 4:41 AM EDT) Troponin-T <0.01 0.00 - 0.00 ng/mL [facility] Comment: The 99th percentile [...] ischemia ?? New or presumed new significant JS-zdemiwg-F wave (ST-T) changes or new left bundle [...] additional sample may be indicated. Reference: Third Portal Definition of Myocardial Infarction. Journal of the [place] [employer] 2012;60:1581-98 Blood 06/08/2021 4:41 AM EDT 06/08/2021 5:12 AM EDT Narrative Resulting Agency Comment Spec In Lab Mario Hallman MD CHEMISTRY ORDERABLES Performing Organization Address City/[facility]/ZIP Co de Phone Number [facility] [place] [address] * Heparin (unfractionated) Level (06/07/2021 9:55 PM EDT) UF Heparin 0.08 IU/mL [facility] Comment: Heparin (anti-Xa) [...] MD HEMATOLOGY ORDERABLE S Performing Organization Address [facility] Co de Phone Number [facility] [place] [address] * (ABNORMAL) pro-Brain Natriuretic Peptide (06/07/2021 5:26 PM EDT) NT-proBNP 2,701(H) <=124 pg/mL [facility] Blood Venous Draw / Unknown 06/07/2021 5:26 PM EDT 06/07/2021 5:44 PM EDT Narrative Resulting Agency Comment Spec In Lab Deja SANDRA CHEMISTRY ORDERABLES Performing Organization Address [facility]/ZIP Co de Phone Number [facility] [place] [address] * (ABNORMAL) Differential, Automated (06/07/2021 5:26 PM EDT) Pathologist [facility] Neutrophil % 74.6 % [facility] Neutrophil Absolute 8.97(H) 1.70 - 6.10 x10(3)/mc L [facility] Lymph % 15.9 % [facility] Lymphocytes Abs 1.9 0.9 - 3.2 x10(3)/mc L [facility] Monocyte % 6.0 % [facility] Monocyte Abs 0.7 0.3 - 0.9 x10(3)/[facility] Eos % 2.6 % [facility] Eosinophils Abs 0.3 0.0 - 0.4 x10(3)/[facility] Basophil % 0.5 % [facility] Baso Absolute 0.1 0.0 - 0.1 x10(3)/[facility] Immature Gran % 0.40 % [facility] Comment: Immature granulocytes(IG's)percentage and absolute count will include metamyelocytes, myelocytes, and promyelocytes. Blood smears from CBCs yielding IG's will be scanned manually for concordance. If this scan disagrees with the automated IG or if promyelocytes are noted, a manual differential will be performed. Immature Gran Absolute 0.05(H) 0.00 - 0.04 x10(3)/[facility] Blood 06/07/2021 5:26 PM EDT 06/07/2021 5:36 PM EDT Narrative Resulting Agency Comment Spec In Lab Deja SANDRA HEMATOLOGY ORDERABLE S [facility] [place] [address] * (ABNORMAL) Hemogram (06/07/2021 5:26 PM EDT) White Blood Cell 12.0(H) 4.0 - 9.5 x10(3)/[facility] Red Blood Cell 4.72 4.00 - 5.21 x10(6)/[facility] Hemoglobin 14.5 11.7 - 15.5 g/dL [facility] Hematocrit 44.0 35.7 - 45.8 % [facility] Mean Cell Volume 93.2 82.6 - 94.4 fL [facility] Mean Cell Hemoglobin 30.7 27.1 - 32.0 pg [facility] Mean Cell Hemoglobin Concentration 33.0 31.7 - 35.0 g/dL [facility] Platelet 346 145 - 357 x10(3)/mc L [facility] RDW Standard Deviation 47.2(H) 37.0 - 46.0 fL [facility] RDW coefficient of variation 14.4(H) 11.5 - 14.1 % [facility] Mean Platelet Volume 10.6 7.6 - 12.9 fL [facility] NRBC% auto 0.0 % [facility] NRBC Absolute 0.000 0.000 - 0.000 x10(3)/mc L [facility] Blood 06/07/2021 5:26 PM EDT 06/07/2021 5:36 PM EDT Narrative Resulting Agency Comment Spec In Lab Deja SANDRA HEMATOLOGY ORDERABLE S Performing Organization Address City/State/[facility] Co de Phone Number [facility] [place] [address] * BMP w/fasting Glucose (06/07/2021 5:26 PM EDT) Glucose Fasting 90 65 - 99 mg/dL [facility] Comment: ?Fasting* Glucose Interpretive [...] Urea Nitrogen 18 8 - 18 mg/dL [facility] Creatinine 1.07 0.70 - 1.20 mg/dL [facility] Sodium 137 135 - 145 mmol/L [facility] Potassium 4.3 3.5 - 5.0 mmol/L [facility] Comment: Please note: ??Patients with WBC >100,000 may have falsely elevated Potassium levels. ??For accurate Potassium quantification in these patients send serum separator tube (gold top) for subsequent determinations. ??Contact the Clinical Chemistry Laboratory if there are any questions. Chloride 101 98 - 107 mmol/L [facility] Carbon Dioxide 24 22 - 31 mmol/L [facility] Anion Gap 12 5 - 15 mmol/L [facility] Calcium 9.1 8.5 - 10.5 mg/dL [facility] Est Glomerular Filtration Rate 60 >=60 mL/min/1. 73 m?? [facility] Comment: This patient? s [...] In Lab Mario Hallman MD CHEMISTRY ORDERABLES [facility] [place] [address] * T3 Total (06/07/2021 5:26 PM EDT) T3 Total 134 80 - 200 ng/dL [facility] Blood 06/07/2021 5:26 PM EDT 06/07/2021 5:36 PM EDT Narrative Resulting Agency Comment Spec In Lab Mario Hallman MD CHEMISTRY ORDERABLES Performing Organization Address City/[facility] Co de Phone Number [facility] [place] [address] * T4 Total (06/07/2021 5:26 PM EDT) T4 Total 6.8 5.3 - 11.6 mcg/dL [facility] Comment: Reference Interval (mcg/dL): Females: ??First Trimester: 6.3-13.5 ??Second Trimester: 7.1-14.3 ??Third Trimester: 6.9-14.1 Blood 06/07/2021 5:26 PM EDT 06/07/2021 5:36 PM EDT Narrative Resulting Agency Comment Spec In Lab Mario Hallman MD CHEMISTRY ORDERABLES Performing Organization Address [facility] Co de Phone Number [facility] [place] [address] * (ABNORMAL) TSH (06/07/2021 5:26 PM EDT) [facility] Thyroid Stimulating Hormone 5.83(H) 0.27 - 4.20 mcIU/mL [facility] Comment: Reference Interval (mcIU/mL): Females: ??First Trimester: 0.23-3.88 ??Second Trimester: 0.22-3.90 ??Third Trimester: 0.44-4.66 Blood 06/07/2021 5:26 PM EDT 06/07/2021 5:36 PM EDT Narrative Resulting Agency Comment Spec In Lab Mario Hallman MD CHEMISTRY ORDERABLES Performing Organization Address City/[facility] Co de Phone Number [facility] [place] [address] * Lipase (06/07/2021 5:26 PM EDT) Lipase 18 0 - 60 unit/L [facility] Blood 06/07/2021 5:26 PM EDT 06/07/2021 5:36 PM EDT Narrative Resulting Agency Comment Spec In Lab Mario Hallman MD CHEMISTRY ORDERABLES Performing Organization Address City/[facility]/ZIP Co de Phone Number [facility] [place] [address] * Amylase (06/07/2021 5:26 PM EDT) Amylase 39 28 - 100 unit/L [facility] Blood 06/07/2021 5:26 PM EDT 06/07/2021 5:36 PM EDT Narrative Resulting Agency Comment Spec In Lab Mario Hallman MD CHEMISTRY ORDERABLES Performing Organization Address City/[facility] Co de Phone Number [facility] [place] [phone] * Lipid Panel (Reflex Direct LDL) (06/07/2021 5:26 PM EDT) Cholesterol, Total 164 mg/dL [facility] Comment: Lower Risk: <200 mg/dL Average Risk: 200-239 mg/dL Higher Risk: >im=662 mg/dL Triglyceride 144 mg/dL [facility] Comment: Average Risk/Lower Risk: <150 mg/dL Borderline High Risk: 150-199 mg/dL High Risk: 200-499 mg/dL Very High Risk: >lr=098 mg/dL HDL Cholesterol 44 mg/dL [facility] Comment: Males: ?? Higher Risk: <40 mg/dL Females: ?? Higher Risk: <50 mg/dL LDL Cholesterol 91 mg/dL [facility] Comment: Lowest Risk: <100 mg/dL Lower Risk: 100-129 mg/dL Borderline High Risk: 130-159 mg/dL High Risk: 160-189 mg/dL Very High Risk: >mf=211 mg/dL Cholesterol/HDL Ratio 3.7 ratio [facility] Lipid Interpretation See Note [facility] Comment: Lipid management should be guided by a patient? s ASCVD risk, goals and preferences. ACC/AHA Guidelines recommend high intensity statin if clinical ASCVD or LDL greater than or equal to 190 mg/dL. http://Sweeten.com/GVC-PYS-Skrhucqvo Adults aged 40-75 with LDL 70-189 mg/dL should have their 10 year ASCVD risk estimated with the ACC/AHA ASCVD risk broadcasting equipment mechanic http://tools.acc.org/NFMOP-Akaz-Pjzeejkxf/ Statin should be discussed if risk greater [...] Hallman MD CHEMISTRY ORDERABLES Performing Organization Address City/[facility]/ZIP Co de Phone Number [facility] [place] [address] * CK (06/07/2021 5:26 PM EDT) Creatine Kinase 33 0 - 160 unit/L [facility] Blood 06/07/2021 5:26 PM EDT 06/07/2021 5:36 PM EDT Narrative Resulting Agency Comment Spec In Lab Mario Hallman MD CHEMISTRY ORDERABLES Performing Organization Address City/[facility]/ZIP Co de Phone Number [facility] [place] [address] * Hemoglobin A1c (06/07/2021 5:04 PM EDT) Hemoglobin A1c 5.6 4.3 - 5.6 % [facility] Comment: Reference Range: 4.3 [...] 1, S67-15 Estimated Average Glucose 114 mg/dL [facility] Comment: [...] into estimated average glucose values. ??Diabetes Care 2008:31(8):1007-3852. Blood 06/07/2021 5:04 PM EDT 06/07/2021 5:36 PM EDT Narrative Resulting Agency Comment Spec In Lab Mario Hallman MD CHEMISTRY ORDERABLES [facility] [place] [address] * Troponin (06/07/2021 5:04 PM EDT) Troponin-T <0.01 0.00 - 0.00 ng/mL [facility] Comment: The 99th percentile [...] ischemia ?? New or presumed new significant UO-tiahbqp-C wave (ST-T) changes or new left bundle [...] additional sample may be indicated. Reference: Third Portal Definition of Myocardial Infarction. Journal of the [place] [employer] 2012;60:1581-98 Blood 06/07/2021 5:04 PM EDT 06/07/2021 5:36 PM EDT Narrative Resulting Agency Comment Spec In Lab Mario Hallman MD CHEMISTRY ORDERABLES Performing Organization Address City/State/[facility] Co de Phone Number [facility] [place] [address] * EKG 12 Lead (06/07/2021 4:33 PM EDT) Pathologist [facility] Ventricular rate 54 BPM MUSE SYSTEM Atrial Rate 54 BPM MUSE SYSTEM P-R Interval 166 ms MUSE SYSTEM QRS Duration 86 ms MUSE SYSTEM Q-T Interval 514 ms MUSE SYSTEM QTC Calculated (Bezet) 487 ms MUSE SYSTEM Calculated P [place] 30 degrees MUSE SYSTEM Calculated R [place] 22 degrees MUSE SYSTEM Calculated T [place] 18 degrees MUSE SYSTEM INTERPRETATION Sinus bradycardia Left atrial enlargement Cannot rule out Lateral infarct , age undetermined Abnormal ECG When compared with ECG of 31-AUG-2019 07:05, No significant change was found Confirmed by MD Dalia, Willy Huerta ([id number]) on 06/09/2021 4:36:27 PM MUSE SYSTEM 06/07/2021 4:33 PM EDT 06/09/2021 4:36 PM EDT Mario Hallman MD ECG ORDERABLES MUSE SYSTEM * COVID-19 PCR (06/07/2021 4:30 PM EDT) SARS-CoV-2 RNA (Rapid) Not Detected Not Detected [facility] Comment: This result should [...] using the Simplexa COVID-19 Direct Assay by [employer] as authorized by the FDA issued Emergency [...] Department of Pathology and Laboratory Medicine at [facility], certified under the Clinical [...] fact sheets at the following FDA website: https://www.fda.gov/medical-devices/gdoqlxyaxie-lzwtkgo-8316-cjsbz-31-euileofwv- use-a ifpruhxmrjrpa-zpumdty-jxqkpzn/hiymo-uimenysjrlg-blov SARS-CoV-2 Source MESMERIST Swab MA [facility] Nasopharyngeal Swab 06/08/19 4:30 PM EDT 06/07/2021 4:45 PM EDT Comment:Symptoms->Surveillan ce Narrative Resulting Agency Comment Spec In Lab Mario Hallman MD MICROBIOLOGY - GENER AL ORDERABLES [facility] [place] [address] documented in this encounter Visit Diagnoses Not [...] mg, Oral, EVERY EVENING, First dose on [facility] 06/07/21 at 1845, Until Discontinued, Routine Given [...] Inhalation, 2 TIMES DAILY, First dose on [facility] 06/07/21 at 2100, Until Discontinued, Routine Given 06/07/2021 8:25 PM EDT 2 .Inhalat ion clopidogreL (Plavix) tablet 75 mg 75 mg, Oral, DAILY, First dose on [place] 06/08/21 at 0900, Until Discontinued, Routine Given 06/08/2021 9:08 AM EDT [address] (Cymbalta) capsule 60 mg 60 mg, Oral, DAILY, First dose on [facility] 06/07/21 at 1845, Until Discontinued, Routine Given 06/08/2021 9:02 PM EDT 60 mg Given 06/07/2021 9:00 PM EDT 60 mg empagliflozin (Jardiance) Tab 10 mg 10 mg, Oral, DAILY, First dose on [place] 06/08/21 at 1545, Until Discontinued, Routine Given [...] 40 mg, Intravenous, ONCE, 1 dose, On [place] 06/08/21 at 1545 Given 06/08/2021 5:01 PM [...] (Given - Provider: Colette Medina RN) 0853 ([facility] Hold - Provider: Admin Adt - Reason: Transfer to a Procedural area)0929 ([facility] Unhold - Provider: Admin Adt) empagliflozin (Jardiance) Tab 10 mg 10 mg, Oral, DAILY, First dose on 06/08/21 at 1545, Until Discontinued, Routine 1717 (Given - Provider: Jo Ann Maldonado RN - Comment: awaiting medication from pharmacy) 0853 ([facility] Hold - Provider: Admin Adt - Reason: Transfer to a Procedural area)0900 (Automatically Held - Provider: Admin Adt)0929 ([facility] Unhold - Provider: Admin Adt)0940 (Given [...] she only takes this as needed.) 0853 ([facility] Hold - Provider: Admin Adt - Reason: Transfer to a Procedural area)0900 (Automatically Held - Provider: Admin Adt)0929 ([facility] Unhold - Provider: Admin Adt) furosemide [...] area)0900 (Automatically Held - Provider: Admin Adt)0929 ([facility] Unhold - Provider: Admin Adt)0939 (Given [...] refused - Comment: only takes as needed)0929 ([facility] Unhold - Provider: Admin Adt) metoprolol [...] not met - Comment: HR 56) 0853 ([facility] Hold - Provider: Admin Adt - Reason: Transfer to a Procedural area)899 (Not Given - Provider: Jo Ann Maldonado RN - Reason: Order parameters not met - Comment: HR 48)0929 ([facility] Unhold - Provider: Admin Adt) montelukast (Singulair) tablet 10 mg 10 mg, Oral, NIGHTLY, First dose on 06/07/21 at 2099, Until Discontinued 2025 (Given - Provider: Olive Anne RN) 2058 (Given - Provider: Colette Medina RN) 0853 ([facility] Hold - Provider: Admin Adt - Reason: Transfer to a Procedural area)09 ([facility] Unhold - Provider: Admin Adt) rOPINIRole (Requip) tablet 1 mg 1 mg, Oral, NIGHTLY, First dose on 06/07/21 at 2100, Until Discontinued, Routine 2025 (Given - Provider: Olive Anne RN) 2058 (Given - Provider: Colette Medina RN) 0853 ([facility] Hold - Provider: Admin Adt - Reason: Transfer to a Procedural area)09 ([facility] Unhold - Provider: Admin Adt) topiramate (Topamax) tablet 50 mg 50 mg, Oral, 2 TIMES DAILY, First dose on 06/07/21 at 2100, Until Discontinued, Routine 2024 (Given - Provider: Olive Anne RN) 100 (Given - Provider: Jo Ann Maldonado RN - Comment: awaiting medication from pharmacy)2110 (Given - Provider: Colette Medina RN) 0853 ([facility] Hold - Provider: Admin Adt - [...] 2053, Until 06/09/21 at 1531, Headaches 0853 ([facility] Hold - Provider: Admin Adt - Reason: Transfer to a Procedural area)0929 ([facility] Unhold - Provider: Admin Adt) albuteroL (Proventil) nebulizer solution 2.5 mg 2.5 mg, Nebulization, EVERY 4 HOURS PRN, Starting on 06/07/21 at 1808, Until 06/09/21 at 1531, Shortness of Breath, Routine 0853 ([facility] Hold - Provider: Admin Adt - Reason: Transfer to a Procedural area)0929 ([facility] Unhold - Provider: Admin Adt) atropine (0.1 [...] 2116 (Given - Provider: Colette Medina RN) 0878 ([facility] Hold - Provider: Admin Adt - [...] Routine documented in this encounter Care Teams Exhaust Machine Operator Relationship Specialty Start Date End Date Polo Pearce PA [address] [place] [address] PCP - General Internal Medicine 06/09/21 documented as of this encounter
--- OUTSIDE RECORDS SUMMARY | 2024-01-24 21:15 | XMS_ITS | Encounter Summary ---
Author Organization [facility] [place] [address] Care Team Providers Care Candy Spreader Helper Name Role Phone Tim Rogers DNP Primary Care Provider Encounter Details Date Type Department Care Team (Late st Contact Info) Description 05/27/2021 Ancillary Procedure Radiology Library at [facility] [place] [address] Tim Rogers DNP [address] [place], [place] [id number] Social History Tobacco Use Types Packs/Day Years [...] PM EST Office Visit Cardiology at [address] [place] [address] Jaspreet Kinsey MD [facility] [place] [address] documented as of this encounter Procedures Procedure Name Priority Date/Time Associated Diagnosis Comments FILM LIBRARY STORAGE ONLY CT ABDOMEN AND PELVIS Routine 05/27/2021 12:00 AM EDT documented in this encounter Results * Film Library- Storage Only CT Abdomen & Pelvis (05/27/2021 12:00 AM EDT) Narrative [facility] - 05/30/2021 2:30 PM EDT This exam is auto-finalizing. It's purpose is for storage only. Tim Rogers DNP IM FILM LIBRARY OR DERABLES Performing Organization Address City/State/[facility] Co de Phone Number [place], [place] documented in this encounter Visit Diagnoses Not on filedocumented in this encounter Care Teams Candy Spreader Helper Relationship Specialty Start Date End Date Tim Rogers DNP PCP - General Family Medicine 08/28/19 06/08/21 documented as of this encounter
--- OUTSIDE RECORDS SUMMARY | 2024-01-24 21:15 | XMS_ITS | Encounter Summary ---
Author Organization [facility] [place] [address] Care Team Providers Care Robotics Mechanic Name Role Phone Tim Rogers DNP Primary Care Provider Encounter Details Date Type Department Care Team (Late st Contact Info) Description 05/02/2021 Ancillary Procedure Radiology Library at [facility] [place] [address] Tim Rogers DNP [address] [place], [place] [id number] Social History Tobacco Use Types Packs/Day Years [...] PM EST Office Visit Cardiology at [address] [place] [address] Jaspreet Kinsey MD [facility] [place] [address] documented as of this encounter Procedures Procedure Name Priority Date/Time Associated Diagnosis Comments FILM LIBRARY STORAGE ONLY DX CHEST Routine 05/02/2021 12:00 AM EST documented in this encounter Results * Film Library- Storage Only DX Chest (05/02/2021 12:00 AM EST) Narrative [facility] - 05/30/2021 2:33 PM EDT This exam is auto-finalizing. It's purpose is for storage only. Tim Rogers DNP [facility] FILM LIBRARY OR DERABLES Performing Organization Address City/State/[facility] Co de Phone Number [place], [place] documented in this encounter Visit Diagnoses Not on filedocumented in this encounter Care Teams Robotics Mechanic Relationship Specialty Start Date End Date Tim Rogers DNP PCP - General Family Medicine 08/28/19 06/08/21 documented as of this encounter
--- OUTSIDE RECORDS SUMMARY | 2024-01-24 21:15 | XMS_ITS | Encounter Summary ---
Author Organization [facility] [place] [address] Care Team Providers Care Pvc Monitor Name Role Phone Polo Pearce Primary Care Provider [phone] Reason for Visit * Reason Onset Date Comments Medication Refill 06/10/2021 Jardiance Encounter Details Date Type Department Care Team (Late st Contact Info) Description 06/10/2021 Refill Cardiology at [address] [address] Deja Zaidi PA [address] [address] Medication Refill (Jardiance) Social History Tobacco Use [...] PM EST Office Visit Cardiology at [address] [place] [address] Jaspreet Kinsey MD [facility] [place] [address] documented as of this encounter Visit Diagnoses Diagnosis Chronic heart failure with preserved ejection fraction documented in this encounter Care Teams Pvc Monitor Relationship Specialty Start Date End Date Polo Pearce PA [address] [place] [address] PCP - General Internal Medicine 06/09/21 documented as of this encounter
--- OUTSIDE RECORDS SUMMARY | 2024-01-24 21:15 | XMS_ITS | Encounter Summary ---
[place] [address] Care Team Providers Care In Home Nanny Name Role Phone Polo Pearce Primary Care Provider Reason for Referral * Diagnostic Test (Routine) - Closed Specialty Diagnoses / Procedures Referred By Contac t Referred To Contact Cardiology Diagnoses Elevated blood pressure reading without diagnosis of hypertension Procedures Ziopatch 48 Hrs-15 Days Deja Zaidi PA [address] [place] [address] [facility] [place] [address] Referral ID Status Reason Start Date Expiration Date V isits Requested Visits Authorized [id number] Closed Specialty Service Requested 06/09/2021 12/09/2021 1 1 Reason for Visit * Diagnostic Test (Routine) - Closed Specialty Diagnoses / Procedures Referred By Contac t Referred To Contact Cardiology Diagnoses Elevated blood pressure reading without diagnosis of hypertension Procedures Ziopatch 48 Hrs-15 Days Deja Zaidi PA [address] [place] [address] [facility] [place] [address] Referral ID Status Reason Start Date Expiration Date V isits Requested Visits Authorized [id number] Closed Specialty Service Requested 06/09/2021 12/09/2021 1 1 Encounter Details Date Type Department Care Team (Latest Contact Info) Description 06/09/2021 3:00 PM EDT - 06/09/2021 11:59 PM EDT Hospital Encounter Non[place] [address] Elevated blood pressure reading without diagnosis of [...] as needed. fluticasone propionate (FLONASE) 50 mcg/actuation [place], Suspension 1 spray by Each Nare route [...] PM EST Office Visit Cardiology at [address] [place] [address] Jaspreet Kinsey MD [facility] [place] [address] documented as of this encounter Procedures Procedure Name Priority Date/Time Associated Diagnosis Comments ZIOPATCH 48 HRS-15 DAYS Routine 06/09/2021 3:48 PM EDT Elevated blood pressure reading without diagnosis of hypertension documented in this encounter Results * Ziopatch 48 Hrs-15 Days (06/09/2021 3:48 PM EDT) Anatomical Region Laterality Modality Other Narrative 07/01/2021 9:29 AM EDT [facility] ? Zio Patch? Ambulatory Cardiac Event [...] described ?? Kurt Larose MD, PhD, [facility] Cardiac Electrophysiology Mario Hallman MD CARDIAC SERVICES ORD ERABLES documented in this encounter Visit Diagnoses Diagnosis Elevated blood pressure reading without diagnosis of hypertension documented in this encounter Care Teams In Home Nanny Relationship Specialty Start Date End Date Polo Pearce PA [address] [place] [address] PCP - General Internal Medicine 06/09/21 documented as of this encounter
--- OUTSIDE RECORDS SUMMARY | 2024-01-24 21:15 | XMS_ITS | Encounter Summary ---
Author Organization [facility] [place] [address] Care Team Providers Care Paralegals Name Role Phone Tim Rogers DNP Primary Care Provider [phone] Encounter Details Date Type Department Care Team (Late st Contact Info) Description 10/21/2020 Telephone [place] [address] eBto Miller MD [facility] [place] [address] Social History Tobacco Use Types Packs/Day Years [...] 1: 79, normal SSA, SSB, Alcantar antibody, HAND SPINNER antibody, ANCA, MPO antibody, VT-3 antibody, serum RITCHIE, CBC, BMP and CRP [...] Question: Where will study be performed? Answer: [facility] Order Specific Question: Apply for 7 or 14 days? Answer: 14 Beto Miller MD documented in this encounter Plan of Treatment Upcoming Encounters Date Type Department Care Team (Late st Contact Info) Description 02/10/2024 1:00 PM EST Office Visit Cardiology at [address] [address] Jaspreet Kinsey MD [facility] [place] [address] documented as of this encounter Visit Diagnoses Diagnosis Palpitations documented in this encounter Care Teams Paralegals Relationship Specialty Start Date End Date Tim Rogers DNP PCP - General Family Medicine 08/28/19 06/08/21 documented as of this encounter
--- OUTSIDE RECORDS SUMMARY | 2024-01-24 21:15 | XMS_ITS | Encounter Summary ---
[place] [address] Care Team Providers Care Faculty Support Coordinator Name Role Phone Polo Pearce Primary Care Provider [phone] Encounter Details Date Type Department Care Team (Late st Contact Info) Description 06/10/2021 Telephone Cardiology at [address] [address] Lashonda Menjivar RN Social History Tobacco Use [...] prescription for 90 days of Jardiance, to [facility]. Prescription pended. Lashonda Menjivar (Jodie), RN, BSN Cardiology Ambulatory [facility] documented in this encounter Plan of Treatment Upcoming Encounters Date Type Department Care Team (Late st Contact Info) Description 02/10/2024 1:00 PM EST Office Visit Cardiology at [address] [place] [address] Jaspreet Kinsey MD [facility] [place] [address] documented as of this encounter Visit Diagnoses Not on filedocumented in this encounter Care Teams Faculty Support Coordinator Relationship Specialty Start Date End Date Polo Pearce PA [address] [place] [id number] PCP - General Internal Medicine 06/09/21 documented as of this encounter
--- OUTSIDE RECORDS SUMMARY | 2024-01-24 21:15 | XMS_ITS | Encounter Summary ---
Author Organization [facility] [place] [address] Care Team Providers Care Associate Embalmer/Funeral Director Name Role Phone Tim Rogers DNP Primary Care Provider [phone] Encounter Details Date Type Department Care Team (Late st Contact Info) Description 08/02/2020 Telephone [place] [address] Olive Frazier Social History Tobacco Use Types [...] PM EST Office Visit Cardiology at [address] [place] [address] Jaspreet Kinsey MD [facility] [place] [address] documented as of this encounter Visit Diagnoses Not on filedocumented in this encounter Care Teams Associate Embalmer/Funeral Director Relationship Specialty Start Date End Date Tim Rogers DNP PCP - General Family Medicine 08/28/19 06/08/21 documented as of this encounter
--- OUTSIDE RECORDS SUMMARY | 2024-01-24 21:15 | XMS_ITS | Encounter Summary ---
Author Organization [facility] [place] [address] Care Team Providers Care Heat Treatment Technician Name Role Phone Tim Rogers DNP Primary Care Provider Encounter Details Date Type Department Care Team (Late st Contact Info) Description 03/23/2021 Ancillary Procedure Radiology Library at [facility] [place] [address] Tim Rogers DNP [address] [place], [place] [id number] Social History Tobacco Use Types Packs/Day Years [...] PM EST Office Visit Cardiology at [address] [place] [address] Jaspreet Kinsey MD [facility] [place] [address] documented as of this encounter Procedures Procedure Name Priority Date/Time Associated Diagnosis Comments FILM LIBRARY STORAGE ONLY DX CHEST Routine 03/23/2021 12:00 AM EST documented in this encounter Results * Film Library- Storage Only DX Chest (03/23/2021 12:00 AM EST) Narrative [facility] - 04/03/2021 11:45 AM EST This exam is auto-finalizing. It's purpose is for storage only. Tim Rogers DNP IM FILM LIBRARY OR DERABLES Performing Organization Address City/State/[facility] Co de Phone Number [place], [place] documented in this encounter Visit Diagnoses Not on filedocumented in this encounter Care Teams Heat Treatment Technician Relationship Specialty Start Date End Date Tim Rogers DNP PCP - General Family Medicine 08/28/19 06/08/21 documented as of this encounter
--- OUTSIDE RECORDS SUMMARY | 2024-01-24 21:15 | XMS_ITS | Encounter Summary ---
[place] [address] Care Team Providers Care Master Fire Control Technician Name Role Phone Polo Pearce Primary Care Provider [phone] Reason for Referral * Diagnostic Test (Routine) - Closed Specialty Diagnoses / Procedures Referred By Jayant harris Referred To Contact Cardiology Diagnoses Elevated blood pressure reading without diagnosis of hypertension Procedures [place]iopatch 48 Hrs-15 Days Deja Zaidi, JOCY [address] [address] [facility] [place] [address] Referral ID Status Reason Start Date Expiration Date V isits Requested Visits Authorized [id number] Closed Specialty Service Requested 06/09/2021 12/09/2021 1 1 Reason for Visit * Auth/Cert Specialty Diagnoses / Procedures Referred By Jayant harris Referred To Contact Diagnoses NSTEMI (non-ST elevated myocardial infarction) NSTEMI Procedures EMERGENCY OBSVO Referral ID Status Reason Start Date Expiration Date Visits Re quested Visits Authorized [id number] 1 1 Encounter Details Date Type Department Care Team (Latest Contact Info) Description 06/07/2021 3:49 PM EDT - 06/09/2021 3:25 PM EDT Hospital Encounter Intermediate Cardiac Care Unit [facility] [place] [address] Mario Hallman MD [facility] [place] [address] NSTEMI (non-ST elevated myocardial infarction); Elevated blood [...] Loida Roque Patient Age: 51 y.o. Language: Micronesian Race: White Ethnicity: Not nor Admit date: [...] in a week and prn ?? Consider [place] as an out patient Inpatient Provider Contact Information: Dr. Mario Zaidi PA-C [phone] Discharge Diagnoses (Hospital Problems) and Secondary Diagnoses [...] change from prior in 08/2019. ?? Procedure Complete-20573. Image enhancement Definity was used for left [...] who have questions please contact the health reproductive healthcare assistant that requested your imaging first. CXR [...] sinus rhythm. Heparin drip was infusing. [facility] records/transfer records were reviewed. Baseline labs were checked and/or drawn. Chest Pain, MA ruled out, Echo showed preserved LVEF Given the patient's risk factors, chronic non-specific ST-T changes on ECG, and here at [facility] normaltroponin as well as reproducible chest tenderness [...] weight, however during her stay at [facility] now she lost only 0.9 kg, to [...] needed Follow up Appointments: PCP Tim Rogers, GLUELINE WORKER [phone] to see you in a week (patient to set this up) Mel placed on 06/09/2021 Cardiology to see in a month and prn. Dr. Kinsey to see the patient in [place] on July 23 at 920 am. Please call [phone] with questions. Home oxygen therapy: N/A Arrangements for VNA/home care: none Future Appointments and Orders Future Appointments and Orders Future Appointments Provider Department Dept Phone 07/23/2021 8:20 AM Jaspreet Kinsey MD Cardiology at [place] Arrive at: [facility] [address] [phone] Future Orders Complete By Expires Mel 48 Hrs-15 Days [[id number] CPT(R)] 06/09/2021 12/09/2021 Process Instructions: Scheduling Instructions: Questions: Does the patient have a pacemaker? If yes provide HI/LO settings: Apply for 7 or 14 days?: 14 Where will study be performed?: [facility] Clin[facility] Basic Metabolic Panel (non-fasting) [LAB15 Custom] 06/16/2021 (Approximate) 06/09/2022 Process Instructions: INCLUDES: Calcium, BUN, Creat, GFR, Glucose, Lytes Scheduling Instructions: Comments: Questions: Discharge References/Attachments None documented in this encounter Discharge Instructions * Discharge Instructions* Deja Zaidi PA - 06/08/2021 1:56 PM EDT Return to work: One week Driving: as needed Follow up Appointments: PCP Tim Rogers, GLUELINE WORKER [phone] to see you in a week (patient to set this up) Mel placed on 06/09/2021 Cardiology to see in a month and prn. Dr. Kinsey to see the patient in [place] on July 23 at 920 am. Please call [phone] with questions. Home oxygen therapy: N/A Arrangements for VNA/home care: none documented in this encounter Medications at Time of Discharge Medication Sig Dispensed Refills Start Date End Date rOPINIRole (Requip) 1 mg Tablet Take 2 mg by mouth 2 times daily. 07/16/2020 loratadine (Claritin) 10 mg Tablet Take 10 mg by mouth daily as needed. fluticasone propionate (FLONASE) 50 mcg/actuation [place], Suspension 1 spray by Each Nare route [...] Plan: Pt seen for Na2gm diet. Manager Cardiology informed pt of current diet orders and their restrictions. Pt expressed understanding and informed this filing writer that she tries to limit salt use at home. Manager Cardiology and pt discussed common sources of sodium [...] diet ([facility]-Diet) 2 GM NA Frequency: Effective Now Number [...] nausea and no vomiting Last Bowel Movement: (SOCCER PLAYER) Patient education / questions: provided diet order education and patient with good understanding, written education and contact information provided and all nutrition related questions answered at this time Nutrition services to follow weekly through hospital course unless consulted in the interim. Rocio Rosenthal Pager: [phone] * Deja Zaidi PA - 06/09/2021 9:14 AM EDT Inpatient Cardiology Discharge Day Note Patient Name: Loida Roque Service: WASHING MACHINE OPERATOR / PA Responsible Attending: Mario Hallman MD [...] (from the past 24 hour(s)) urine, qualitative ([place]/[facility]/CGP/NL) Result Value Ref Range Spec Sturgeon UA 1.010 1.006 - 1.030 HCG Qual [...] on recent CT scan presents to [facility] from [facility] with a [...] with Dr. Hallman. ?? JOCY Hernandez Pager [phone] JOCY MCKOY 06/09/2021 Associated attestation - Mario Hallman MD - 06/09/2021 9:37 PM EDT Cardiology Attending Addendum I shared this visit with JOCY Zaidi and guided the medical decision- making. I explained to patient the findings of echo, R heart catheterization and our diagnostic impression and medications (furosemide and empagliflozin) and possible adverse events. More than 30 minutes were spent in ytmq-[id number] contact with patient and with arranging discharge [...] Jaspreet Pardo - 06/08/2021 8:34 PM EDT [place]ope[place] Rope Maker Encounter Note Patient Name: Loida Roque : [id number] MR#: [id number] Admit Date: 06/07/2021 3:49 PM Hospital Day 0 days Narrative: Initial rounding visit to introduce beater boss services and to assess patient interest. Patient [...] Day Note Patient Name: Loida Roque Service: WASHING MACHINE OPERATOR / PA Responsible Attending: Mario Hallman MD [...] PCR Not Detected Not Detected SARS-CoV-2 Source WASHING MACHINE OPERATOR Swab Troponin Result Value Ref Range Troponin-T [...] on recent CT scan presents to [facility] from [facility] with a [...] with Dr. Hallman. ?? 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 ??? fluticasone propionate (FLONASE) 50 mcg/actuation [place], Suspension 1 spray by Each Nare route [...] on recent CT scan presents to [facility] from [facility] with a NSTEMI. She has an elevated trop, BNP and lateral EKG changes. Patient is now awaiting an Echo and cardiac cath. Neurology consult called in to determine if she needs imaging prior to her Echo and cath given garbled speech a week ago. Stable at this time. TREATMENT PLAN: NSTEMI Admit to [facility] for telemetry monitoring Serial enzymes [...] JOCY Hernandez 06/07/2021 Provider: JOCY MCKOY Pager [phone] 06/07/2021 Associated attestation - Mario Hallman MD [...] COVID test: Lab Results Component Value Date [id number] Not Detected 06/07/2021 Present on Admission: ??? [...] Primary care provider on file: Tim Rogers, GLUELINE WORKER [phone] Pharmacy: [id number] - [place], [place] - [address] [facility] [address] [place] [address] Advance Care Planning: Attempt Cardiopulmonary Resuscitation - Inpatient <no information> -Advanced Directive: No, declines (Boby (spouse) SDM) Current Functional Ability: Independent Functional Status Prior to Admission: Independent Home Environment: Others in the home: spouse. Current Living Arrangements: home/apartment/condo. Accessibility Concerns: . Current DME: none [address] [facility] [phone] Social & Family Supports: All names listed [...] private vehicle when medically ready. Registered Nurse Major Assembly Lineman / Florist will continue to follow patient???s progress and [...] Daily. ??? 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 Consider AIRFIELD ENGINEER OFFICER consult for full evaluation and diet recommendations. [...] for further details. JOCY MCKOY 06/07/2021 Pager [phone] documented in this encounter Plan of Treatment Upcoming Encounters Date Type Department Care Team (Late st Contact Info) Description 02/10/2024 1:00 PM EST Office Visit Cardiology at [address] [place] [id number] Jaspreet Kinsey MD [place] [address] documented as of this encounter Procedures Procedure [...] Modality Other Narrative 07/01/2021 9:29 AM EDT [facility] ? Zio Patch? Ambulatory Cardiac Event [...] atrial premature beat conducted with a prolonged MT interval, strongly suggestive of atrioventricular makayla reentrant [...] ? Procedure Date: 06/09/2021 ? A #: [id number] ? Primary Physician: Aaron Ash ? Case #: [id number] ? File Name: [id number] ? Catheterization Order Number: [id number] ? [facility] ? Final Report [place], [place] ? Patient Name: ? Loida Neisha ? ID#: ?[id number] ? : ?1970 ? Procedure Date: ? [...] was ?designated as ASA Class III. The [facility] clinical frailty scale is 2: Well. [...] procedure was Urgent. The indication for ?the cytogenetics laboratory manager visit is other indication. Chest pain [...] Loida Roque Procedure Date: 06/09/2021 A #: [id number] Primary Physician: Aaron Ash Case #: [id number] File Name: [id number] Catheterization Order Number: [id number] [facility] FinalReport [place], [place] Patient Name: Loida Roque ID#:[id number] :1970 Procedure Date: June 09, 2021 Case [...] patientwas designated as ASA Class III. The [facility] clinical frailty scale is 2:Well. Diagnostic [...] diagnostic procedure was Urgent. The indicationfor the cytogenetics laboratory manager visit is other indication. Chest pain [...] pro-Brain Natriuretic Peptide (06/09/2021 3:37 AM EDT) [facility] NT-proBNP 911(H) <=124 pg/mL [facility] Blood Venous Draw / Unknown 06/09/2021 3:37 AM EDT 06/09/2021 3:59 AM EDT Narrative Resulting Agency Comment Spec In Lab Deja SANDRA CHEMISTRY ORDERABLES [facility] [place] [address] * Differential, Automated (06/09/2021 3:37 AM EDT) [facility] Neutrophil % 64.9 % [facility] Neutrophil Absolute 5.12 1.70 - 6.10 x10(3)/[facility] LAB[facility] Lymph % 21.9 % [facility] Lymphocytes Abs 1.7 0.9 - 3.2 x10(3)/[facility] LABOR[facility] Monocyte % 8.6 % [facility] Monocyte Abs 0.7 0.3 - 0.9 x10(3)/[facility] LAB[facility] Eos % 3.4 % [facility] Eosinophils Abs 0.3 0.0 - 0.4 x10(3)/[facility] Basophil % 0.8 % [facility] [...] - 0.04 x10(3)/[facility] Blood 06/09/2021 3:37 AM EDT 06/09/2021 3:58 AM EDT Narrative Resulting Agency Comment Spec In Lab Deja SANDRA HEMATOLOGY ORDERABLE S Performing Organization Address City/State/[facility] Co de Phone Number [facility] [place] [address] * (ABNORMAL) Hemogram (06/09/2021 3:37 AM EDT) White Blood Cell 7.9 4.0 - 9.5 x10(3)/ L [facility] Red Blood Cell 4.88 4.00 - 5.21 x10(6)/[facility] LABORATORY Hemoglobin 15.2 11.7 - 15.5 g/dL [facility] Hematocrit 46.5(H) 35.7 - 45.8 % [facility] Mean Cell Volume 95.3(H) 82.6 - 94.[address] [facility] Mean Cell Hemoglobin 31.1 27.1 - 32.[address] [facility] Mean Cell Hemoglobin Concentration 32.7 31.7 - 35.0 g/dL [facility] Platelet 334 145 - 357 x10(3)/ L [facility] RDW Standard Deviation 49.2(H) 37.0 - 46.[address] [facility] RDW coefficient of variation 14.5(H) 11.5 - 14.1 % [facility] Mean Platelet Volume 10.2 7.6 - 12.[address] [facility] NRBC% auto 0.0 % [facility] NRBC Absolute 0.000 0.000 - 0.000 x10(3)/mc L [facility] Blood 06/09/2021 3:37 AM EDT 06/09/2021 3:58 AM EDT Narrative Resulting Agency Comment Spec In Lab Deja SANDRA HEMATOLOGY ORDERABLE S Performing Organization Address City/[facility] Co de Phone Number [facility] [place] [phone] * (ABNORMAL) BMP w/fasting Glucose (06/09/2021 3:37 AM EDT) Glucose Fasting 103(H) 65 - 99 mg/dL [facility] [...] of Diabetes Mellitus, Position Statement from the [place] Diabetes [employer]. ??Diabetes Care, Volume 33, Supplement 1, Mar 2009 Blood Urea Nitrogen 23(H) 8 - 18 mg/dL [facility] Creatinine 0.86 0.70 - 1.20 mg/dL [facility] [...] mmol/L [facility] Carbon Dioxide 22 22 - 31 mmol/L [facility] Anion Gap 13 5 - 15 mmol/L [facility] Calcium 9.3 8.5 - 10.5 mg/dL [facility] Est Glomerular Filtration Rate 78 >=60 mL/min/1. 73 m?? [facility] Comment: This patient? s estimated [...] In Lab Mario Hallman MD CHEMISTRY ORDERABLES [facility] [place] [address] * Heparin (unfractionated) Level (06/08/2021 4:07 PM EDT) UF Heparin <0.04 IU/mL [facility] [...] Lab Mario Hallman MD HEMATOLOGY ORDERABLE S [facility] [place] [address] * XR Chest PA & Lateral (Generic) [...] who have questions please contact the health reproductive healthcare assistant that requested your imaging first. ? Narrative [...] patients who have questions please contactthe health reproductive healthcare assistant that requested your imaging first. Mario Hallman [...] who have questions please contact the health reproductive healthcare assistant that requested your imaging first. ? Narrative [...] patients who have questions please contactthe health reproductive healthcare assistant that requested your imaging first. Mario Hallman MD [facility] MRI ORDERABLES * (ABNORMAL) CRP, acute inflammation (06/08/2021 11:58 AM EDT) C-Reactive Protein 28.1(H) <=4.9 mg/L [facility] Blood 06/08/2021 11:5 8 AM EDT 06/08/2021 12:04 PM EDT Narrative Resulting Agency Comment Spec In Lab Mario Hallman MD CHEMISTRY ORDERABLES Performing Organization Address [facility] Co de Phone Number [facility] [place] [address] * CK (06/08/2021 11:58 AM EDT) Creatine Kinase 30 0 - 160 unit/L [facility] Blood 06/08/2021 11:5 8 AM EDT 06/08/2021 12:04 PM EDT Narrative Resulting Agency Comment Spec In Lab Mario aHllman MD CHEMISTRY ORDERABLES Performing Organization Address [facility] de Phone Number [facility] [place] [address] * (ABNORMAL) Sedimentation rate (06/08/2021 11:58 AM EDT) Sedimentation Rate Automated 53(H) 2 - 39 mm/hr [facility] [...] MD HEMATOLOGY ORDERABLE S Performing Organization Address [facility] Co de Phone Number [facility] [place] [address] * Heparin (unfractionated) Level (06/08/2021 11:58 AM EDT) UF Heparin 0.77 IU/mL [facility] Comment: [...] MD HEMATOLOGY ORDERABLE S Performing Organization Address [facility] Co de Phone Number [facility] [place] [address] * urine, qualitative ([place]/[facility]/CGP/NLH) (06/08/2021 11:51 AM EDT) Specific [place] Urine Automated 1.010 1.006 - 1.030 [facility] Human Chorionic Gonadotropin Qualitative, Urine Negative [facility] Comment: Dilute urine samples can result in a false negative test. Repeat testing on a first morning sample or a plasma quantitative hCG measurement is recommended. Urine 06/08/2021 11:5 1 AM EDT 06/08/2021 12:32 PM EDT Narrative Resulting Agency Comment Spec In Lab Mario Hallman MD URINE ORDERABLES Performing Organization Address [facility] Co de Phone Number [facility] [place] [address] * ECHO COMPLETE W CONTRAST (06/08/2021 11:09 AM EDT) Anatomical Region Laterality Modality Other 06/08/2021 9:35 AM EDT Narrative 06/08/2021 12:42 PM EDT ?[facility] ?[address] ? [place] [address] ?Voice: ?Fax: ? Echocardiogram Report Name: NEISHA, LOIDA ? Study Date: 06/08/2021 09:35 AMBP: 109/69 mmHg ? Patient Location: ICCU^432^A : 1970 ? Height: 163 cm ? Account: [id number] Age: 51 yrs ? Weight: 95 kg Gender: Female ?BSA: 2.0 m2 Ordering Physician: DONALD Referring Physician: AJ HARTMAN Performed By: Aaron Herr RDCS Reason For Study: NSTEMI (non-ST elevated myocardial infarction) Exam Location: [facility]. Interpretation Summary 1. Left ventricle is [...] significant change from prior in 08/2019. Procedure Complete-79591. Image enhancement Definity was used for left [...] Procedure Note Kai Haider MD - 06/08/2021 [place] [address] [place] [address] Voice: Fax: Echocardiogram Report Name: LOIDA ROQUE Study Date: 209:35 AMBP: 109/69 mmHg Patient Location:[place] [address]^A : 1970 Height: 163 cm Account: [id number] Age: 51 yrs Weight: 95 kg Gender: Female BSA: 2.0 m2 Ordering Physician: DONALD Referring Physician: AJ HARTMAN Performed By: Aaron Herr RDCS Reason For Study: NSTEMI (non-ST elevated myocardial infarction) Exam Location: [facility]. Interpretation Summary 1. Left ventricle is [...] significant change from prior in 08/2019. Procedure Complete-99963. Image enhancement Definity was used for left [...] Heparin (unfractionated) Level (06/08/2021 5:54 AM EDT) [facility] UF Heparin 1.20(Crit ical) IU/mL [facility] Comment: [...] Lab Edie Costello MD HEMATOLOGY ORDERABLE S [facility] [place] [address] * (ABNORMAL) Differential, Automated (06/08/2021 4:41 AM EDT) [facility] Neutrophil % 71.8 % [facility] Neutrophil Absolute 8.09(H) 1.70 - 6.10 x10(3)/mc L [facility] Lymph % 18.0 % [facility] Lymphocytes Abs 2.0 0.9 - 3.2 x10(3)/mc L [facility] Monocyte % 5.7 % [facility] Monocyte Abs 0.6 0.3 - 0.9 x10(3)/[facility] LABORAT[facility] Eos % 3.5 % [facility] Eosinophils Abs 0.4 0.0 - 0.4 x10(3)/[facility] LABOR[facility] Basophil % 0.6 % [facility] Baso Absolute 0.1 0.0 - 0.1 x10(3)/[facility] LABOR[facility] Immature Gran % 0.40 % [facility] Comment: Immature granulocytes(IG's)percentage and absolute count will include metamyelocytes, myelocytes, and promyelocytes. Blood smears from CBCs yielding IG's will be scanned manually for concordance. If this scan disagrees with the automated IG or if promyelocytes are noted, a manual differential will be performed. Immature Gran Absolute 0.05(H) 0.00 - 0.04 x10(3)/[facility] Blood 06/08/2021 4:41 AM EDT 06/08/2021 5:11 AM EDT Narrative Resulting Agency Comment Spec In Lab Deja SANDRA HEMATOLOGY ORDERABLE S [facility] [place] [address] * (ABNORMAL) Hemogram (06/08/2021 4:41 AM EDT) White Blood Cell 11.3(H) 4.0 - 9.5 x10(3)/[facility] Red Blood Cell 4.64 4.00 - 5.21 x10(6)/[facility] Hemoglobin 13.9 11.7 - 15.5 g/dL [facility] Hematocrit 43.0 35.7 - 45.8 % [facility] Mean Cell Volume 92.7 82.6 - 94.[address] [facility] Mean Cell Hemoglobin 30.0 27.1 - 32.[address] [facility] Mean Cell Hemoglobin Concentration 32.3 31.7 - 35.0 g/dL [facility] Platelet 312 145 - 357 x10(3)/mc L [facility] RDW Standard Deviation 47.4(H) 37.0 - 46.[address] [facility] RDW coefficient of variation 14.3(H) 11.5 - 14.1 % [facility] Mean Platelet Volume 10.8 7.6 - 12.[address] [facility] NRBC% auto 0.0 % [facility] NRBC Absolute 0.000 0.000 - 0.000 x10(3)/mc L [facility] Blood 06/08/2021 4:41 AM EDT 06/08/2021 5:11 AM EDT Narrative Resulting Agency Comment Spec In Lab Deja SANDRA HEMATOLOGY ORDERABLE S Performing Organization Address City/State/[facility] Co de Phone Number [facility] [place] [phone] * (ABNORMAL) Heparin (unfractionated) Level (06/08/2021 4:41 AM EDT) UF Heparin 1.06(Crit ical) IU/mL [facility] Comment: [...] Lab Mario Hallman MD HEMATOLOGY ORDERABLE S [facility] [place] [address] * (ABNORMAL) BMP w/fasting Glucose (06/08/2021 4:41 AM EDT) Glucose Fasting 95 65 - 99 mg/dL [facility] [...] of Diabetes Mellitus, Position Statement from the [place] [employer]. ??Diabetes Care, Volume 33, Supplement 1, Mar 2009 Blood Urea Nitrogen 21(H) 8 - 18 mg/dL [facility] Creatinine 0.87 0.70 - 1.20 mg/dL [facility] [...] mmol/L [facility] Carbon Dioxide 22 22 - 31 mmol/L [facility] Anion Gap 13 5 - 15 mmol/L [facility] Calcium 8.7 8.5 - 10.5 mg/dL [facility] Est Glomerular Filtration Rate 77 >=60 mL/min/1. 73 m?? [facility] Comment: This patient? s estimated [...] In Lab Mario Hallman MD CHEMISTRY ORDERABLES [facility] [place] [address] * Troponin (06/08/2021 4:41 AM EDT) Troponin-T <0.01 0.00 - 0.00 ng/mL [facility] Comment: The 99th percentile for [...] ischemia ?? New or presumed new significant NC-keqgheo-X wave (ST-T) changes or new left bundle [...] additional sample may be indicated. Reference: Third [place] Definition of Myocardial Infarction. Journal of the [place] [employer] 2012;60:1581-98 Blood 06/08/2021 4:41 AM EDT 06/08/2021 5:12 AM EDT Narrative Resulting Agency Comment Spec In Lab Mario Hallman MD CHEMISTRY ORDERABLES Performing Organization Address City/[facility] Co de Phone Number [facility] [place] [address] * Heparin (unfractionated) Level (06/07/2021 9:55 PM EDT) UF Heparin 0.08 IU/mL [facility] Comment: [...] City/[facility]/ZIP Co de Phone Number [facility] [place] [address] * (ABNORMAL) pro-Brain Natriuretic Peptide (06/07/2021 5:26 PM EDT) NT-proBNP 2,701(H) <=124 pg/mL [facility] Blood Venous Draw / Unknown 06/07/2021 5:26 PM EDT 06/07/2021 5:44 PM EDT Narrative Resulting Agency Comment Spec In Lab Deja SANDRA CHEMISTRY ORDERABLES [facility] [place] [address] * (ABNORMAL) Differential, Automated (06/07/2021 5:26 PM EDT) Neutrophil % 74.6 % [facility] Neutrophil Absolute 8.97(H) 1.70 - 6.10 x10(3)/[facility] Lymph % 15.9 % [facility] Lymphocytes Abs 1.9 0.9 - 3.2 x10(3)/[facility] LAB[facility] Monocyte % 6.0 % [facility] Monocyte Abs 0.7 0.3 - 0.9 x10(3)/[facility] LAB[facility] Eos % 2.6 % [facility] Eosinophils Abs 0.3 0.0 - 0.4 x10(3)/[facility] LAB[facility] Basophil % 0.5 % [facility] Baso Absolute 0.1 0.0 - 0.1 x10(3)/[facility] Immature Gran % 0.40 % [facility] Comment: Immature granulocytes(IG's)percentage and absolute count will include metamyelocytes, myelocytes, and promyelocytes. Blood smears from CBCs yielding IG's will be scanned manually for concordance. If this scan disagrees with the automated IG or if promyelocytes are noted, a manual differential will be performed. Immature Gran Absolute 0.05(H) 0.00 - 0.04 x10(3)/ L [facility] Blood 06/07/2021 5:26 PM EDT 06/07/2021 5:36 PM EDT Narrative Resulting Agency Comment Spec In Lab Deja SANDRA HEMATOLOGY ORDERABLE S [facility] [place] [address] * (ABNORMAL) Hemogram (06/07/2021 5:26 PM EDT) White Blood Cell 12.0(H) 4.0 - 9.5 x10(3)/mc L [facility] Red Blood Cell 4.72 4.00 - 5.21 x10(6)/mc L [facility] Hemoglobin 14.5 11.7 - 15.5 g/dL [facility] Hematocrit 44.0 35.7 - 45.8 % [facility] Mean Cell Volume 93.2 82.6 - 94.[address] [facility] Mean Cell Hemoglobin 30.7 27.1 - 32.[address] [facility] Mean Cell Hemoglobin Concentration 33.0 31.7 - 35.0 g/dL [facility] Platelet 346 145 - 357 x10(3)/mc L [facility] RDW Standard Deviation 47.2(H) 37.0 - 46.[address] [facility] RDW coefficient of variation 14.4(H) 11.5 - 14.1 % [facility] Mean Platelet Volume 10.6 7.6 - 12.[address] [facility] NRBC% auto 0.0 % [facility] NRBC Absolute 0.000 0.000 - 0.000 x10(3)/mc L [facility] Blood 06/07/2021 5:26 PM EDT 06/07/2021 5:36 PM EDT Narrative Resulting Agency Comment Spec In Lab Deja SANDRA HEMATOLOGY ORDERABLE S [facility] [place] [address] * BMP w/fasting Glucose (06/07/2021 5:26 PM EDT) [facility] Glucose Fasting 90 65 - 99 mg/dL [facility] [...] of Diabetes Mellitus, Position Statement from the [place] [employer]. ??Diabetes Care, Volume 33, Supplement 1, Mar 2009 Blood Urea Nitrogen 18 8 - 18 mg/dL [facility] Est Glomerular Filtration Rate 60 >=60 mL/min/1. 73 m?? [facility] Comment: This patient? s estimated [...] In Lab Mario Hallman MD CHEMISTRY ORDERABLES [facility] [place] [address] * T3 Total (06/07/2021 5:26 PM EDT) Pathologist [facility] T3 Total 134 80 - 200 ng/dL [facility] Blood 06/07/2021 5:26 PM EDT 06/07/2021 5:36 PM EDT Narrative Resulting Agency Comment Spec In Lab Mario Hallman MD CHEMISTRY ORDERABLES Performing Organization Address City/[facility]/ZIP Co de Phone Number [facility] [place] [address] * T4 Total (06/07/2021 5:26 PM EDT) [facility] T4 Total 6.8 5.3 - 11.6 mcg/dL [facility] Comment: Reference Interval (mcg/dL): Females: ??First Trimester: 6.3-13.5 ??Second Trimester: 7.1-14.3 ??Third Trimester: 6.9-14.1 Blood 06/07/2021 5:26 PM EDT 06/07/2021 5:36 PM EDT Narrative Resulting Agency Comment Spec In Lab Mario Hallman MD CHEMISTRY ORDERABLES Performing Organization Address City/[facility]/ZIP Co de Phone Number [facility] [place] [address] * (ABNORMAL) TSH (06/07/2021 5:26 PM EDT) Thyroid Stimulating Hormone 5.83(H) 0.27 - 4.20 mcIU/mL [facility] Comment: Reference Interval (mcIU/mL): Females: ??First Trimester: 0.23-3.88 ??Second Trimester: 0.22-3.90 ??Third Trimester: 0.44-4.66 Blood 06/07/2021 5:26 PM EDT 06/07/2021 5:36 PM EDT Narrative Resulting Agency Comment Spec In Lab Mario Hallman MD CHEMISTRY ORDERABLES Performing Organization Address City/[facility]/ZIP Co de Phone Number [facility] [place] [address] * Lipase (06/07/2021 5:26 PM EDT) Lipase 18 0 - 60 unit/L [facility] Blood 06/07/2021 5:26 PM EDT 06/07/2021 5:36 PM EDT Narrative Resulting Agency Comment Spec In Lab Mario Hallman MD CHEMISTRY ORDERABLES Performing Organization Address City/[facility]/ZIP Co de Phone Number [facility] [place] [address] * Amylase (06/07/2021 5:26 PM EDT) Amylase 39 28 - 100 unit/L [facility] Blood 06/07/2021 5:26 PM EDT 06/07/2021 5:36 PM EDT Narrative Resulting Agency Comment Spec In Lab Mario Hallman MD CHEMISTRY ORDERABLES Performing Organization Address City/[facility]/ZIP Co de Phone Number [facility] [place] [address] * Lipid Panel (Reflex Direct LDL) (06/07/2021 5:26 PM EDT) Pathologist [facility] Cholesterol, Total 164 mg/dL [facility] Comment: Lower Risk: <200 mg/dL Average Risk: 200-239 mg/dL Higher Risk: >kr=474 mg/dL Triglyceride 144 mg/dL [facility] Comment: Average Risk/Lower Risk: <150 mg/dL Borderline High Risk: 150-199 mg/dL High Risk: 200-499 mg/dL Very High Risk: >gd=851 mg/dL HDL Cholesterol 44 mg/dL [facility] Comment: Males: ?? Higher Risk: <40 mg/dL Females: ?? Higher Risk: <50 mg/dL LDL Cholesterol 91 mg/dL [facility] Comment: Lowest Risk: <100 mg/dL Lower Risk: 100-129 mg/dL Borderline High Risk: 130-159 mg/dL High Risk: 160-189 mg/dL Very High Risk: >fc=183 mg/dL Cholesterol/HDL Ratio 3.[address] [facility] Lipid Interpretation See Note [facility] Comment: Lipid management should be guided by a patient? s ASCVD risk, goals and preferences. ACC/AHA Guidelines recommend high intensity statin if clinical ASCVD or LDL greater than or equal to 190 mg/dL. http://Yoyo.com/UHX-UUK-Iscdgcbqo Adults aged 40-75 with LDL 70-189 mg/dL should have their 10 year ASCVD risk estimated with the ACC/AHA ASCVD risk project estimator http://tools.acc.org/TQIWQ-Fupe-[place]amiesoke/ Statin should be discussed if risk greater [...] In Lab Mario Hallman MD CHEMISTRY ORDERABLES [facility] [place] [address] * CK (06/07/2021 5:26 PM EDT) Pathologist [facility] Creatine Kinase 33 0 - 160 unit/L [facility] Blood 06/07/2021 5:26 PM EDT 06/07/2021 5:36 PM EDT Narrative Resulting Agency Comment Spec In Lab Mario Hallman MD CHEMISTRY ORDERABLES [facility] [place] [address] * Hemoglobin A1c (06/07/2021 5:04 PM EDT) [facility] Hemoglobin A1c 5.6 4.3 - 5.6 % [facility] [...] 1, S67-74 Estimated Average Glucose 114 mg/dL [facility] Comment: [...] into estimated average glucose values. ??Diabetes Care 2008:31(8):2232-3691. Blood 06/07/2021 5:04 PM EDT 06/07/2021 5:36 PM EDT Narrative Resulting Agency Comment Spec In Lab Mario Hallman MD CHEMISTRY ORDERABLES [facility] [place] [address] * Troponin (06/07/2021 5:04 PM EDT) Troponin-T <0.01 0.00 - 0.00 ng/mL [facility] Comment: The 99th percentile for [...] ischemia ?? New or presumed new significant PT-hwusjha-S wave (ST-T) changes or new left bundle [...] additional sample may be indicated. Reference: Third [place] Definition of Myocardial Infarction. Journal of the [place] College [employer] 2012;60:1581-98 Blood 06/07/2021 5:04 PM EDT 06/07/2021 5:36 PM EDT Narrative Resulting Agency Comment Spec In Lab Mario Hallman MD CHEMISTRY ORDERABLES Performing Organization Address [facility] Co de Phone Number [facility] [place] [address] * EKG 12 Lead (06/07/2021 4:33 PM EDT) Ventricular rate 54 BPM MUSE SYSTEM Atrial Rate 54 BPM MUSE SYSTEM P-R Interval 166 ms MUSE SYSTEM QRS Duration 86 ms MUSE SYSTEM Q-T Interval 514 ms MUSE SYSTEM QTC Calculated (Bezet) 487 ms MUSE SYSTEM Calculated P [place] 30 degrees MUSE SYSTEM Calculated R [place] 22 degrees MUSE SYSTEM Calculated T [place] 18 degrees MUSE SYSTEM INTERPRETATION Sinus bradycardia Left atrial enlargement Cannot rule out Lateral infarct , age undetermined Abnormal ECG When compared with ECG of 31-AUG-2019 07:05, No significant change was found Confirmed by MD Dalia, Willy Huerta ([id number]) on 06/09/2021 4:36:27 PM MUSE SYSTEM 06/07/2021 4:33 PM EDT 06/09/2021 4:36 PM EDT Mario Hallman MD ECG ORDERABLES Performing Organization Address [facility] Co de Phone Number MUSE SYSTEM * COVID-19 PCR (06/07/2021 4:30 PM EDT) Pathologist [facility] SARS-CoV-2 RNA (Rapid) Not Detected Not Detected [facility] Comment: This result should be [...] using the Simplexa COVID-19 Direct Assay by [employer] as authorized by the FDA issued Emergency [...] Department of Pathology and Laboratory Medicine at [facility], certified under the Clinical Laboratory Improvement [...] fact sheets at the following FDA website: https://www.fda.gov/medical-devices/fgqwphqsdpy-ynrqbpx-3455-kcenw-81-hadxckkby- use-a fucslqoksvbyy-ujojion-rrlmrqe/lwqrt-yobgjtsyzrq-qcbr SARS-CoV-2 Source WASHING MACHINE OPERATOR Swab [facility] Nasopharyngeal Swab 06/08/19 4:30 PM EDT 06/07/2021 4:45 PM EDT Comment:Symptoms->Surveillan ce Narrative Resulting Agency Comment Spec In Lab Mario Hallman MD MICROBIOLOGY - GENER AL ORDERABLES [facility] [place] [address] documented in this encounter Visit Diagnoses Diagnosis [...] Inhalation, 2 TIMES DAILY, First dose on [facility] 06/07/21 at 2100, Until Discontinued, Routine Given 06/07/2021 8:25 PM EDT 2 .Inhalat ion clopidogreL (Plavix) tablet 75 mg 75 mg, Oral, DAILY, First dose on [place] 06/08/21 at 0900, Until Discontinued, Routine Given 06/08/2021 9:08 AM EDT [address] (Cymbalta) capsule 60 mg 60 mg, Oral, DAILY, First dose on [facility] 06/07/21 at 1845, Until Discontinued, Routine Given 06/08/2021 9:02 PM EDT 60 mg Given 06/07/2021 9:00 PM EDT 60 mg empagliflozin (Jardiance) Tab 10 mg 10 mg, Oral, DAILY, First dose on [place] 06/08/21 at 1545, Until Discontinued, Routine Given [...] 40 mg, Intravenous, ONCE, 1 dose, On [place] 06/08/21 at 1545 Given 06/08/2021 5:01 PM EDT 40 mg furosemide (Lasix) tablet 20 mg 20 mg, Oral, DAILY, First dose on [facility] 06/07/21 at 1845, Until Discontinued, Routine Given 06/09/2021 9:39 AM EDT 20 mg Given 06/08/2021 9:08 AM EDT 20 mg gabapentin (Neurontin) capsule 300 mg 300 mg, Oral, 2 TIMES DAILY, First dose on [facility] 06/07/21 at 2100, Until Discontinued, [...] area)0900 (Automatically Held - Provider: Admin Adt)0929 ([facility] Unhold - Provider: Admin [...] she only takes this as needed.) 0853 ([facility] Hold - Provider: Admin Adt - Reason: Transfer to a Procedural area)0900 (Automatically Held - Provider: Admin Adt)0929 ([facility] Unhold - Provider: Admin [...] - Provider: Jo Ann Maldonado RN) 0853 ([facility] Hold - Provider: Admin Adt - Reason: Transfer to a Procedural area)0900 (Automatically Held - Provider: Admin Adt)0929 ([facility] Unhold - Provider: Admin Adt)0939 (Given - Provider: Jo Ann Maldonado RN) gabapentin (Neurontin) capsule 300 mg 300 mg, Oral, 2 TIMES DAILY, First dose on 06/07/21 at 2100, Until Discontinued, Routine 2026 (Given - Provider: Olive Anne RN) 0908 (Given - Provider: Jo Ann Maldonado RN)210 (Given - Provider: Colette Medina RN) 0853 ([facility] Hold - Provider: Admin Adt - Reason: Transfer to a Procedural area)0900 (Automatically Held - Provider: Admin Adt)0929 ([facility] Unhold - Provider: Admin [...] area)0900 (Automatically Held - Provider: Admin Adt)0929 ([facility] Unhold - Provider: Admin [...] takes this as needed for allergies.) 0853 ([facility] Hold - Provider: Admin Adt - Reason: Transfer to a Procedural area)0900 (Not Given - Provider: Jo Ann Maldonado RN - Reason: Patient/family refused - Comment: only takes as needed)0929 ([facility] Unhold - Provider: Admin [...] not met - Comment: HR 56) 0853 ([facility] Hold - Provider: Admin Adt - Reason: Transfer to a Procedural area)0900 (Not Given - Provider: Jo Ann Maldonado RN - Reason: Order parameters not met - Comment: HR 48)0929 ([facility] Unhold - Provider: Admin Adt) montelukast (Singulair) tablet 10 mg 10 mg, Oral, NIGHTLY, First dose on 06/07/21 at 2100, Until Discontinued 2025 (Given - Provider: Olive Anne RN) 2058 (Given - Provider: Colette Medina RN) 0853 ([facility] Hold - Provider: Admin Adt - Reason: Transfer to a Procedural area)0929 ([facility] Unhold - Provider: Admin Adt) rOPINIRole (Requip) tablet 1 mg 1 mg, Oral, NIGHTLY, First dose on 06/07/21 at 2100, Until Discontinued, Routine 2025 (Given - Provider: Olive Anne RN) 2058 (Given - Provider: Colette Medina RN) 0853 ([facility] Hold - Provider: Admin Adt - Reason: Transfer to a Procedural area)0929 ([facility] Unhold - Provider: Admin Adt) topiramate (Topamax) tablet 50 mg 50 mg, Oral, 2 TIMES DAILY, First dose on 06/07/21 at 2100, Until Discontinued, Routine 2024 (Given - Provider: Olive Anne RN) 1009 (Given - Provider: Jo Ann Maldonado RN - Comment: awaiting medication from pharmacy)2110 (Given - Provider: Colette Medina RN) 0853 ([facility] Hold - Provider: Admin Adt - Reason: Transfer to a Procedural area)0929 ([facility] Unhold - Provider: Admin Adt)1254 (Given - Provider: Jo Ann Maldonado RN - Comment: awaiting medication from pharmacy) traZODone (Desyrel) tablet 100 mg 100 mg, Oral, NIGHTLY, First dose (after last reorder) on 06/07/21 at 2114, Until Discontinued, Routine 2099 (Given - Provider: Olive Anne RN) 2099 (Given - Provider: Colette Medina RN) 0853 ([facility] Hold - Provider: Admin Adt - Reason: Transfer to a Procedural area)0929 ([facility] Unhold - Provider: Admin [...] Routine documented in this encounter Care Teams Master Fire Control Technician Relationship Specialty Start Date End Date Polo Pearce PA [address] [place] [address] PCP - General Internal Medicine 06/09/21 documented as of this encounter
--- OUTSIDE RECORDS SUMMARY | 2024-01-24 21:15 | XMS_ITS | Encounter Summary ---
Author Organization [facility] [place] [address] Care Team Providers Care Historical Manuscripts Curator Name Role Phone Tim Rogers DNP Primary Care Provider Reason for Visit * Diagnostic Test (Routine) - Closed Specialty Diagnoses / Procedures Referred By Jayant harris Referred To Contact Cardiology Diagnoses Palpitations Procedures Ziopatch 48 Hrs-15 Days Beto Miller MD [facility] [address] [facility] [place] [address] Referral ID Status Reason Start Date Expiration Date V isits Requested Visits Authorized [id number] Closed Specialty Service Requested 10/28/2020 03/07/2021 1 1 Encounter Details Date Type Department Care Team (Latest Contact Info) Description 10/28/2020 8:00 AM EDT - 10/28/2020 11:59 PM EDT Hospital Encounter [place] [address] Beto Miller MD [facility] [place] [address] Palpitations Discharge Disposition: Home Social [...] as needed. fluticasone propionate (FLONASE) 50 mcg/actuation [place], Suspension 1 spray by Each Nare route [...] PM EST Office Visit Cardiology at [address] [place] [address] Jaspreet Kinsey MD [facility] [place] [address] documented as of this encounter Procedures Procedure [...] Palpitations documented in this encounter Care Teams Historical Manuscripts Curator Relationship Specialty Start Date End Date Tim Rogers DNP PCP - General Family Medicine 08/28/19 06/08/21 documented as of this encounter
--- OUTSIDE RECORDS SUMMARY | 2024-01-24 21:15 | XMS_ITS | Encounter Summary ---
Author Organization [facility] [place] [address] Care Team Providers Care Census Taker Name Role Phone Tim Rogers DNP Primary Care Provider [phone] Encounter Details Date Type Department Care Team (Late st Contact Info) Description 09/09/2020 [place] [address] Beto Miller MD [facility] [place] [address] Social History Tobacco Use Types Packs/Day Years [...] the 2020 CT given the motion artifacts. Cytogenetic Technician images are below Combination of eosinophilia, adenopathy, [...] Diff) Please fax results to Dr Miller [phone] Standing Status: Future Standing Expiration Date: 03/11/2021 ??? Basic Metabolic Panel (non-fasting) Please fax results to Dr Miller [phone] Standing Status: Future Standing Expiration Date: 03/11/2021 ??? KATHRINE ([facility]/CGP/APD/NLH) Please fax results to Dr Miller [phone] Standing Status: Future Standing Expiration Date: 03/11/2021 ??? Extractable Nuclear Antigen (JENNA) Ab Please fax results to Dr Miller [phone] Standing Status: Future Standing Expiration Date: 03/11/2021 ??? Angiotensin Converting Enzyme Please fax results to Dr Miller [phone] Standing Status: Future Standing Expiration Date: 03/11/2021 ??? CRP, acute inflammation Please fax results to Dr Miller [phone] Standing Status: Future Standing Expiration Date: 03/11/2021 ??? Cytoplasmic Neutrophilic Ab Please fax results to Dr Miller [phone] Standing Status: Future Standing Expiration Date: 09/09/2021 ??? Myeloperoxidase Ab Please fax results to Dr Miller [phone] Standing Status: Future Standing Expiration Date: 09/09/2021 ??? Proteinase-3 Antibody Please fax results to Dr Miller [phone] Standing Status: Future Standing Expiration Date: 09/09/2021 ??? Immunoglobulin E (IgE) Please fax results to Dr Miller [phone] Standing Status: Future Standing Expiration Date: 09/09/2021 ??? Immunoglobulins, Quantitative Standing Status: Future Standing Expiration Date: 09/09/2021 documented in this encounter Plan of Treatment Upcoming Encounters Date Type Department Care Team (Late st Contact Info) Description 02/10/2024 1:00 PM EST Office Visit Cardiology at [address] [place] [address] Jaspreet Kinsey MD [facility] [place] [address] documented as of this encounter Visit Diagnoses Diagnosis Acute recurrent sinusitis, unspecified location RAVI (dyspnea on exertion) Other dyspnea and respiratory abnormality Abnormal CT of the chest Nonspecific (abnormal) findings on radiological and other examination of other intrathoracic organs documented in this encounter Care Teams Census Taker Relationship Specialty Start Date End Date Tim Rogers DNP PCP - General Family Medicine 08/28/19 06/08/21 documented as of this encounter
--- OUTSIDE RECORDS SUMMARY | 2024-01-24 21:15 | XMS_ITS | Encounter Summary ---
Author Organization [facility] [place] [address] Care Team Providers Care Area Attendant Name Role Phone Tim Rogers DNP Primary Care Provider [phone] Encounter Details Date Type Department Care Team (Latest Contact Info) Description 05/30/2021 9:30 AM EDT TH Visit (TeleHealth) [place] [phone] Beto Miller MD [facility] [place] [address] Pleurisy with effusion; *History of COVID-19; Chronic [...] 05/30/21 PCP: Polo Pearce and Tim Rogers, SHRIMPING BOAT CAPTAIN [address] [place] [address] Pulmonary Background: ?? Cough, dyspnea, wheeze and [...] 80, normal SSA, SSB, Alcantar antibody, AUTO RADIO MECHANIC antibody, ANCA, MPO antibody, SD-3 antibody, serum RITCHIE, CBC, BMP and CRP [...] I reviewed the chest x-ray done at [facility] at the time which showed bilateral hazy opacities (mild). Debbie was not hospitalized for Covid and seemed to make a short-term recovery but by late April was again struggling. She describes increased cough and dyspnea and went to the emergency room at [facility] May 02. I do not have that [...] the May 27 CT chest images from [facility] and her April chest x-ray images ??? Once I have reviewed these I will contact the patient and potentially involve local rotor winder, Ryanne Wilson, who I do not think is ever seen the patient but may be a useful local resourcegiven Indira's complicated history Outpatient Established Visits Time MDM 59437 10-19 Straightforward 52932 20-29 X Low 83149 30-39 Moderate 07082 40-54 High 68024 + 15 mins Beto Miller MD documented in this encounter Plan of Treatment Upcoming Encounters Date Type Department Care Team (Late st Contact Info) Description 02/10/2024 1:00 PM EST Office Visit Cardiology at [address] [place] [phone] Jaspreet Kinsey MD [facility] [place] [address] documented as of this encounter Visit Diagnoses Diagnosis Pleurisy with effusion Unspecified pleural effusion History of COVID-19 Chronic cough Cough RAVI (dyspnea on exertion) Other dyspnea and respiratory abnormality documented in this encounter Care Teams Area Attendant Relationship Specialty Start Date End Date Tim Rogers DNP PCP - General Family Medicine 08/28/19 06/08/21 documented as of this encounter
--- OUTSIDE RECORDS SUMMARY | 2024-01-24 21:15 | XMS_ITS | Encounter Summary ---
Author Organization [facility] [place] [address] Care Team Providers Care Net Mobile Developer Name Role Phone Tim Rogers DNP Primary Care Provider [phone] Encounter Details Date Type Department Care Team (Late st Contact Info) Description 06/06/2021 [place] [address] Paulo Ramachandran Jr., MD [facility] [place] [address] Social History Tobacco Use Types Packs/Day Years [...] provider/staff member. Referring Provider: Stuart Iyer MD [address] [place] [address] [place] [id number] Indira Roque 51 y.o. w / a [...] pt has been accepted for transfer to [facility] [place] tomorrow. I asked the provider to contact us again if there is change in clinical status. documented in this encounter Plan of Treatment Upcoming Encounters Date Type Department Care Team (Late st Contact Info) Description 02/10/2024 1:00 PM EST Office Visit Cardiology at [address] [place] [id number] Jaspreet Kinsey MD [facility] [place] [address] documented as of this encounter Visit Diagnoses Not on filedocumented in this encounter Care Teams Net Mobile Developer Relationship Specialty Start Date End Date Tim Rogers DNP PCP - General Family Medicine 08/28/19 06/08/21 documented as of this encounter
--- OUTSIDE RECORDS SUMMARY | 2024-01-24 21:16 | XMS_ITS | Encounter Summary ---
[place] [address] Care Team Providers Care Special Education Professor Name Role Phone Dustin Nino MD Primary Care Provider [phone] Encounter Details Date Type Department Care Team (Late st Contact Info) Description 06/17/2010 [place] [address] Lashonda York MD [facility] [address] [place] [address] Social History Tobacco Use Types Packs/Day Years [...] PM EST Office Visit Cardiology at [address] [place] [address] Jaspreet Kinsey MD [facility] [place] [address] documented as of this encounter Visit Diagnoses Not on filedocumented in this encounter Care Teams Special Education Professor Relationship Specialty Start Date End Date Dustin Nino MD [facility] [address] [place] [address] PCP - General 06/11/10 08/27/19 documented as of this encounter
--- OUTSIDE RECORDS SUMMARY | 2024-01-24 21:16 | XMS_ITS | Encounter Summary ---
Author Organization [facility] [place] [address] Care Team Providers Care Human Resources Team Member Name Role Phone Tim Rogers DNP Primary Care Provider [phone] Encounter Details Date Type Department Care Team (Late st Contact Info) Description 05/06/2020 Telephone [place] [address] Virginia Marc Social History Tobacco Use Types [...] PM EST Office Visit Cardiology at [address] [place] [address] Jaspreet Kinsey MD [facility] [place] [address] documented as of this encounter Visit Diagnoses Not on filedocumented in this encounter Care Teams Human Resources Team Member Relationship Specialty Start Date End Date Tim Rogers DNP PCP - General Family Medicine 08/28/19 06/08/21 documented as of this encounter
--- OUTSIDE RECORDS SUMMARY | 2024-01-24 21:16 | XMS_ITS | Encounter Summary ---
[place] [address] Care Team Providers Care Non Profit Director Name Role Phone Tim Rogers DNP Primary Care Provider Reason for Visit * Auth/Cert Specialty Diagnoses / Procedures Referred By Jayant harris Referred To Contact Diagnoses NSTEMI (non-ST elevated myocardial infarction) NSTEMI Procedures EMERGNECY IPI Referral ID Status Reason Start Date Expiration Date Visits Re quested Visits Authorized [id number] 1 1 Encounter Details Date Type Department Care Team (Late st Contact Info) Description 08/30/2019 1:00 PM EDT - 08/30/2019 2:00 PM EDT [place] [address] Jessee Malone MD [facility] [place] [address] CARDIAC CATHETERIZATION Social History Tobacco Use Types [...] this encounter Discharge Summaries * Natalia Urbina, VARNISH REMOVER - 08/30/2019 5:18 PM EDT Images from the original note were not included. Discharge Summary Patient Name: Loida Roque Patient Age: 49 y.o. Language: [place] Citizen Race: White Ethnicity: Not nor Admit date: [...] pain overnight ~3 weeksago concerning for missed IN. ??In the ED, her EKG was abnormal [...] follow-up visit please call one of the quality supervisor on Wednesday-Wednesday between the hours of 8A- 5PM. Cardiology Clinic number @ [phone] If off hours contact the cardiac fellow on- call. Hospital Dispatcher Refinery can help you. Hospital phone number [phone] Return to work: In 1 week Drivin hours post catheterization Follow up Appointments: Doctor Where Phone # Date Time Bouchra Frias APRN [address] / [facility] [address] 09/13/19 8:30 Discharge References/Attachments None Discussed with MD Natalia Lira APRN Pager [phone] 08/31/2019 documented in this encounter Discharge Instructions * Discharge Instructions* Natalia Urbina APRN - 08/31/2019 3:54 PM EDT Call your doctor if: Chest pain, dyspnea, pain or swelling in legs occurs. If you have non-emergent questions, prior to your follow-up visit please call one of the quality supervisor on Wednesday-Wednesday between the hours of 8A- 5PM. Cardiology Clinic number @ [phone] If off hours contact the cardiac fellow on- call. Hospital Dispatcher Refinery can help you. Hospital phone number [phone] Return to work: In 1 week Drivin hours post catheterization Follow up Appointments: Doctor Where Phone # Date Time Bouchra Frias APRN [address] / [facility] [address] 09/13/19 8:30 * Attachments The following attachments cannot be sent through Care Everywhere. * Cardiac Catheterization: Left ([place] Citizen) documented in this encounter Medications at Time of Discharge Medication Sig Dispensed Refills Start Date End Date fluticasone propionate (FLONASE) 50 mcg/actuation [place], Suspension 1 spray by Each Nare route [...] Spirometry Patient Loida Roque 49 y.o. 1970 [id number] Spirometry Spirometry performed successfully. Waiting for read [...] Pt wheeled out of the unit with PHYSICAL THERAPY NURSE. * Leonardo Jolly - 08/31/2019 12:25 PM EDT Nutrition Services Note - Low Nutrition Acuity Loida Roque is a 49 y.o. female Reason for intervention: education [facility] + NA Nutrition Plan: Patient states that she follows a low sodium restriction a home. Educational Material Guidelines for a Heart Healthy Lifestyle provided. Continue current diet. Educational Material provided. Monitor weight. Encourage good oral intake. Support and encouragement provided. Nutrition will continue to monitor and follow up with patient as needed. Active Orders Diet Daily Healthy Menu Choices/Cardiac diet ([facility]-Diet) Frequency: Effective Now [...] in the interim. Leonardo Marina Jolly Pager: [phone] * Manish Benitez MD - 08/31/2019 9:33 AM EDT Images from the original note were not included. Inpatient Cardiology Progress Note Patient Name: Loida Roque Service: MELT ROOM OPERATOR / PA Responsible Attending: Manish Benitez MD [...] of report for additional findings. [facility] 08/29 Preliminary findings: Right dominant Normal [...] overnight ~3 weeks ago concerning for missed IN. ??In the ED, her EKG was abnormal with diffuse STTW abnormalities but unchanged from prior EKG in 200 7.?Troponin??I??positive at 0.25 (ULN 0.06). ??Vitals stable and patient asymptomatic at rest. ??DDimer positive at 1037 thus??CT-PE protocol??completed. ??No PE or acute aortic pathology. ??She is transferred for further work up of NSTEMI. ??EF 62% and no wall motions seen on echo. [facility] with normal cors and LVEDP 15. [...] EF 62% and no WMA [facility] with normal cors A1C 5.4% Bedside PFTs today ?? FULL CODE Discussed with MD Natalia Lira, ROM Pager [phone] 08/31/2019 Cardiology Attending Note I interviewed and examined the patient during comprehensive bedside rounds. I concur with the summary of interval events, active hospital-focused problem list and plan of care as described in the note below. I personally reviewed the medications, laboratory results, treatment decisions and updated the patient. Manish Benitez MD, FACP, FACC Section of Cardiovascular Medicine [facility] Program Services Plannerfloor covering printer assistant [facility] of Medicine at [facility] This patient meets or has met [...] Progress Note Patient Name: Loida Roque Service: MELT ROOM OPERATOR / PA Responsible Attending: Manish Benitez MD [...] overnight ~3 weeks ago concerning for missed IN. 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 fluticasone propionate (FLONASE) 50 mcg/actuation [place], Suspension 1 spray by Each Nare route [...] overnight ~3 weeks ago concerning for missed IN. In the ED, her EKG was abnormal with diffuse STTW abnormalities but unchanged from prior EKG in 2006. Troponin I positive at 0.25 (ULN 0.06). Vitals stable and patient asymptomatic at rest. DDimer positive [id number] thus CT-PE protocol completed. No PE or acute aortic pathology. She is transferred for furtherwork up of NSTEMI. Plan Echo and coronary angiography. TREATMENT PLAN: #NSTEMI Admit to cardiology Trend troponin - 1st negative at [facility] ProBNP 1242; Admit weight 207 lbs; Lasix [...] FACP, FACC Section of Cardiovascular Medicine [facility] Program Services Plannerfloor covering printer assistant [facility] of Medicine at [facility] This patient meets or has met [...] Ongoing * Plan of Care - Mark iNck RN - 08/30/2019 5:32 PM EDT Problem: [...] Primary care provider on file: Tim Rogers, VARNISH REMOVER [phone] Advance Directive on file and Code Status: Full Code Patient???s Functional Status: Independent w/o device Living Situation: lives with Boby Roque (Spouse) [phone] (M) at [address] [place] [address] Supports: Boby, Mother son and daughter Assessment: Patient with no apparent RNCM/SW needs at this time. No housing, transportation, insurance, resources concerns identified at this time. Supports in place to achieve a safe post-hospital transition. No identified barriers to accessing necessary care and/or follow-up after discharge. Plan: Patient to d/c to home when medically ready. medical administrator/Bread Slicer Machine will continue to follow patient???s progress and remain available if situation changes for coordination of care, psychosocial support and/or discharge planning. Angela Loving RN * Brief Op Note - Jessee Malone MD - 08/30/2019 2:31 PM EDT Preliminary Cardiac Catheterization Procedure Note: Patient Name: Loida Roque : [id number] MR#: [id number] Case Date: 08/30/2019 Dispatcher Refinery: Surgeon(s) and Role: * Jessee Malone MD - Primary * Luis Tatum PA - Fellow Preoperative diagnosis: ?CAD Postoperative diagnosis: * CAD * Procedure(s) performed: [facility] Coronary angio Access: Right radial A [...] for further details. JOCY Montaño 08/30/2019 Pager [phone] * Plan of Care - Efrain Verma [...] PM EST Office Visit Cardiology at [address] [place] [address] Jaspreet Kinsey MD [facility] [place] [address] documented as of this encounter Procedures Procedure [...] (FVC >70%) Zoe Morocho MD Natalia Urbina VARNISH REMOVER PFT ORDERABLES * EKG 12 Lead (08/31/2019 7:05 AM EDT) Ventricular rate 51 BPM MUSE SYSTEM Atrial Rate 51 BPM MUSE SYSTEM P-R Interval 186 ms MUSE SYSTEM QRS Duration 82 ms MUSE SYSTEM Q-T Interval 546 ms MUSE SYSTEM QTC Calculated (Bezet) 503 ms MUSE SYSTEM Calculated P [place] 18 degrees MUSE SYSTEM Calculated R [place] 52 degrees MUSE SYSTEM Calculated T [place] 13 degrees MUSE SYSTEM INTERPRETATION Sinus bradycardia [...] 4:12 AM EDT) Neutrophil % 45.2 % [facility] Neutrophil Absolute 2.73 1.70 - 6.10 x10(3)/[facility] Lymph % 34.8 % [facility] Lymphocytes Abs 2.1 0.9 - 3.2 x10(3)/[facility] Monocyte % 10.1 % [facility] Monocyte Abs 0.6 0.3 - 0.9 x10(3)/[facility] Eos % 8.9 % [facility] Eosinophils Abs 0.5(H) 0.0 - 0.4 x10(3)/[facility] Basophil % 0.8 % [facility] Baso Absolute 0.0 0.0 - 0.1 x10(3)/[facility] Immature Gran % 0.20 % [facility] Comment: Immature granulocytes(IG's)percentage and absolute count will include metamyelocytes, myelocytes, and promyelocytes. Blood smears from CBCs yielding IG's will be scanned manually for concordance. If this scan disagrees with the automated IG or if promyelocytes are noted, a manual differential will be performed. Immature Gran Absolute 0.01 0.00 - 0.04 x10(3)/[facility] Blood specimen (specimen) 08/31/2019 4:12 AM EDT 08/31/2019 4:29 AM EDT Narrative Resulting Agency Comment Spec In Lab [facility] SANDRA HEMATOLOGY ORDERABLE S [facility] [place] [address] * (ABNORMAL) Hemogram (08/31/2019 4:12 AM EDT) White Blood Cell 6.0 4.0 - 9.5 x10(3)/[facility] Red Blood Cell 5.08 4.00 - 5.21 x10(6)/[facility] [...] Platelet 255 145 - 357 x10(3)/mc L [facility] RDW Standard Deviation 45.3 37.0 - 46.0 fL [facility] RDW coefficient of variation 13.2 11.5 - 14.1 % [facility] Mean Platelet Volume 11.4 7.6 - 12.9 [facility] NRBC% auto 0.0 % [facility] NRBC Absolute 0.000 0.000 - 0.000 x10(3)/mc L [facility] Blood specimen (specimen) 08/31/2019 4:12 AM EDT 08/31/2019 4:29 AM EDT Narrative Resulting Agency Comment Spec In Lab [facility] HEMATOLOGY ORDERABLE S Performing Organization Address City/[facility]/ZIP Co de Phone Number [facility] [place] [address] * Magnesium (08/31/2019 4:12 AM EDT) Magnesium 0.92 0.69 - 1.07 mmol/L [facility] Blood specimen (specimen) 08/31/2019 4:12 AM EDT 08/31/2019 4:29 AM EDT Narrative Resulting Agency Comment Spec In Lab Manish Benitez MD CHEMISTRY ORDERABL ES Performing Organization Address City/[facility]/ZIP Co de Phone Number [facility] [place] [address] * (ABNORMAL) BMP w/fasting Glucose (08/31/2019 4:12 [...] of Diabetes Mellitus, Position Statement from the [place] [employer]. ??Diabetes Care, Volume 33, Supplement [...] of body mass or the acutely ill. http://GoTaxi(Cabeo)/[facility] eGFR 85 >=60 mL/min/1. 73 m?? [facility] Comment: The eGFR was calculated using the CKD-EPI equation. As with all creatinine based estimates of kidney function, eGFR values calculated with the CKD-EPI equation are not accurate in patients with acute kidney failure, extremes of body mass or the acutely ill. http://GoTaxi(Cabeo)/[facility]nkf Blood specimen (specimen) 08/31/2019 4:12 AM EDT 08/31/2019 4:29 AM EDT Narrative Resulting Agency Comment Spec In Lab Manish Benitez MD CHEMISTRY ORDERABL ES Performing Organization Address City/State/[facility] Co de Phone Number [facility] [place] [address] * CARDIAC CATHETERIZATION (08/30/2019 2:40 PM EDT) Anatomical Region Laterality Modality Other Narrative 08/30/2019 2:59 PM EDT ?[facility] ? Cardiac Catheterization/Intervention Report ? Patient Name: Neisha, Loida ? Procedure Date: 08/30/2019 ? A #: [id number] ? Primary Physician: Kira, Jessee T ? Case #: [id number] ? File Name: [id number] ? Catheterization Order Number: [id number] ? [facility] ? Final Report [place], [place] ? Patient Name: ? Loida Neisha ? ID#: ?[id number] ? : ?1970 ? Procedure Date: ? [...] was Urgent. The indication for ?the label printer visit is ACS less than or equal [...] Procedure Note Jessee Malone MD - 08/30/2019 [facility] Cardiac Catheterization/Intervention Report Patient Name: Loida Roque Procedure Date: 08/30/2019 A #: [id number] Primary Physician: Jessee Malone Case #: [id number] File Name: [id number] Catheterization Order Number: [id number] [facility] FinalReport [place], [place] Patient Name: Loida Roque ID#:[id number] :1970 Procedure Date: August 30, 2019 Case [...] was designated as ASA Class III. The [facility] clinical frailtyscale is 2: Well. Diagnostic Tests: Prior Coronary Angiography: LV ejection fraction within 6 months is 65%. Medications Prior to Procedure: Aspirin. Indications for Diagnostic Cath: The priority of the diagnostic procedure was Urgent. The indicationfor the label printer visit is ACS less than or equal [...] CONTRAST (08/30/2019 12:23 PM EDT) EF 62 HEARTMedipacs SYSTEM Anatomical Region Laterality Modality Other 08/30/2019 Narrative 08/30/2019 2:22 PM EDT Procedure: ?Transthoracic Echocardiogram Patient: ?NEISHA LOIDA ?(Age): 1970(49y) Med Rec#: ? [id number] ?Sex: ?F ? Site Loc: ? [facility] ?Ht / Wt: ??163(cm)/94(kg) Pt. Loc: ?Adult Floor ? BSA: ?1.99 Study Date: ?? 08/30/2019 ?Pt. Type: Inpatient Tape: ? Referring: POOJA IYER J Reading: Jose Chambers ([id number]) Wound/Ostomy Clinical Nurse Specialist: Jaspreet Oneil RDCS Interpreting Fellow: Poncho Yates ([id number]) Diagnosis: *Non-ST elevation (NSTEMI) myocardial infarction (I21.4) [...] Vmax ?0.35 ? m/sec ? MV deceleration [id number] ?msec ? MV A-wave Vmax ?0.25 ? [...] ? Mid-Inferior ?Normal ? Mid-Inferoseptal ?Normal ? [place]-Septal ? Normal ? [place]-Anterior ? Normal ? [place]-Lateral ?Normal ? [place]-Inferior ? Normal ? [place]-Tip ?Normal ? This report has been electronically signed by: Jose Chambers MD ? 08/30/2019 14:21:57 Images reviewed and interpretation verified [facility] Cardiac Ultrasound Laboratory Procedure Note Jose Chambers MD - 08/30/2019 Procedure: Transthoracic Echocardiogram Patient: NEISHA VÁSQUEZ(Age): 1970(49y) Med Rec#: [id number] Sex: F Site Loc: [facility] Ht / Wt: 163(cm)/94(kg) Pt. Loc: Adult Floor BSA: 1.99 Study Date: 08/30/2019 Pt. Type: Inpatient Tape: Referring: POOJA IYER J Reading: Jose Chambers ([id number]) Wound/Ostomy Clinical Nurse Specialist: Jaspreet Oneil [facility] Interpreting Fellow: Poncho Yates ([id number]) Diagnosis: *Non-ST elevation (NSTEMI) myocardial infarction (I21.4) [...] MV E-wave Vmax 0.35 m/sec MV deceleration [id number] msec MV A-wave Vmax 0.25 m/sec MV [...] Normal Mid-Posterolateral Normal Mid-Inferior Normal Mid-Inferoseptal Normal [place]-Septal Normal [place]-Anterior Normal [place]-Lateral Normal [place]-Inferior Normal [place]-Tip Normal This report has been electronically signed by: Jose Chambers MD 08/30/2019 14:21:57 Images reviewed and interpretation verified [facility] Cardiac Ultrasound Laboratory Manish Benitez MD ECHO ORDERABLES * EKG 12 Lead (08/30/2019 10:28 AM EDT) Ventricular rate 52 BPM MUSE SYSTEM Atrial Rate 52 BPM MUSE SYSTEM P-R Interval 162 ms MUSE SYSTEM QRS Duration 84 ms MUSE SYSTEM Q-T Interval 536 ms MUSE SYSTEM QTC Calculated (Bezet) 498 ms MUSE SYSTEM Calculated P [place] -9 degrees MUSE SYSTEM Calculated R [place] 43 degrees MUSE SYSTEM Calculated T [place] -27 degrees MUSE SYSTEM INTERPRETATION Sinus bradycardia [...] (unfractionated) Level (08/30/2019 2:53 AM EDT) Pathologist [facility] UF Heparin 0.44 IU/mL [facility] Comment: Guidelines for therapeutic unfractionated [...] MD HEMATOLOGY ORDERAB LES Performing Organization Address City/State/[facility] Co de Phone Number [facility] [place] [address] * (ABNORMAL) Differential, Automated (08/30/2019 2:53 AM EDT) Neutrophil % 52.4 % [facility] Neutrophil Absolute 3.85 1.70 - 6.10 x10(3)/mc L [facility] Lymph % 29.3 % [facility] Lymphocytes Abs 2.2 0.9 - 3.2 x10(3)/mc L [facility] Monocyte % 9.1 % [facility] Monocyte Abs 0.7 0.3 - 0.9 x10(3)/mc L [facility] Eos % 8.6 % [facility] Eosinophils Abs 0.6(H) 0.0 - 0.4 x10(3)/mc L [facility] Basophil % 0.5 % [facility] Baso Absolute 0.0 0.0 - [...] ORDERABLE S [facility] [place] [address] * (ABNORMAL) Hemogram (08/30/2019 2:53 AM EDT) White Blood Cell 7.4 4.0 - 9.5 x10(3)/[facility] Red Blood Cell 4.84 4.00 - 5.21 x10(6)/[facility] [...] CENTER LABORATORY Platelet 272 145 - 357 x10(3)/[facility] RDW Standard Deviation 46.2(H) 37.0 - 46.0 [facility] RDW coefficient of variation 13.5 11.5 - 14.1 % [facility] Mean Platelet Volume 10.9 7.6 - 12.9 fL [facility] NRBC% auto 0.0 % [facility] NRBC Absolute 0.000 0.000 - 0.000 x10(3)/ L [facility] Blood specimen (specimen) 08/30/2019 2:53 AM EDT 08/30/2019 3:01 AM EDT Narrative Resulting Agency Comment Spec In Lab [facility]DR[facility] HEMATOLOGY ORDERABLE S Performing Organization Address [facility] Co de Phone Number [facility] [place] [address] * Magnesium (08/30/2019 2:53 AM EDT) Magnesium 0.90 0.69 - 1.07 mmol/L [facility] Blood specimen (specimen) 08/30/2019 2:53 AM EDT 08/30/2019 3:01 AM EDT Narrative Resulting Agency Comment Spec In Lab Manish Benitez MD CHEMISTRY ORDERABL ES Performing Organization Address [facility] Co de Phone Number [facility] [place] [address] * (ABNORMAL) BMP w/fasting Glucose (08/30/2019 2:53 [...] of Diabetes Mellitus, Position Statement from the [place] [employer]. ??Diabetes Care, Volume 33, Supplement [...] of body mass or the acutely ill. http://GoTaxi(Cabeo)/[facility] CITYnk[facility] eGFR 69 >=60 mL/min/1. 73 m?? [facility] Comment: The eGFR was calculated using the CKD-EPI equation. As with all creatinine based estimates of kidney function, eGFR values calculated with the CKD-EPI equation are not accurate in patients with acute kidney failure, extremes of body mass or the acutely ill. http://GoTaxi(Cabeo)/[facility] CITYnk[facility] Blood specimen (specimen) 08/30/2019 2:53 AM EDT 08/30/2019 3:01 AM EDT Narrative Resulting Agency Comment Spec In Lab Manish Benitez MD CHEMISTRY ORDERABL ES [facility] [place] [address] * Triglyceride (08/30/2019 2:53 AM EDT) Triglyceride 203 mg/dL [facility] Comment: Average Risk/Lower Risk: <150 mg/dL Borderline High Risk: 150-199 mg/dL High Risk: 200-499 mg/dL Very High Risk: >pi=665 mg/dL Blood specimen (specimen) 08/30/2019 2:53 AM EDT 08/30/2019 3:01 AM EDT Narrative Resulting Agency Comment Spec In Lab Manish eBnitez MD CHEMISTRY ORDERABL ES [facility] [place] [address] * HDL/Cholesterol Profile (08/30/2019 2:53 AM EDT) Cholesterol, Total 220 mg/dL [facility] Comment: Lower Risk: <200 mg/dL Average Risk: 200-239 mg/dL Higher Risk: >qj=320 mg/dL HDL Cholesterol 34 mg/dL [facility] [...] greater than or equal to 190 mg/dL. http://curated.by.com/HKL-JPF-Uywzvfqea Measure LDL if Total Cholesterol minus HDL Cholesterol is greater than 220 mg/dL. Adults aged 40-75 with LDL 70-189 mg/dL should have their 10 year ASCVD risk estimated with the ACC/AHA ASCVD risk box estimator http://tools.acc.org/RYKGF-Ntfe-Hlegndnqq/ Statin should be discussed if risk greater [...] CHEMISTRY ORDERABL ES Performing Organization Address [facility] de Phone Number [facility] [place] [address] * LDL Cholesterol, Direct (08/30/2019 2:53 AM EDT) LDL Cholesterol, Direct 165 mg/dL [facility] Comment: Lowest Risk: <100 mg/dL Lower Risk: 100-129 mg/dL Borderline High Risk: 130-159 mg/dL High Risk: 160-189 mg/dL Very High Risk: >wj=045 mg/dL Blood specimen (specimen) 08/30/2019 2:53 AM EDT 08/30/2019 3:01 AM EDT Narrative Resulting Agency Comment Spec In Lab Manish Benitez MD CHEMISTRY ORDERABL ES Performing Organization Address [facility] de Phone Number [facility] [place] [address] * Hemoglobin A1c (08/30/2019 2:53 AM EDT) [...] Mellitus, Diabetes Care 2013; 36: Suppl. 1, Y05-00 Estimated Average Glucose 108 mg/dL [facility] [...] into estimated average glucose values. ??Diabetes Care 2008:31(8):1193-2242. Blood specimen (specimen) 08/30/2019 2:53 AM EDT 08/30/2019 3:01 AM EDT Narrative Resulting Agency Comment Spec In Lab Manish Benitez MD CHEMISTRY ORDERABL ES Performing Organization Address [facility] de Phone Number [facility] [place] [address] * CK (08/30/2019 2:53 AM EDT) Creatine Kinase 82 0 - 160 unit/L [facility] Blood specimen (specimen) 08/30/2019 2:53 AM EDT 08/30/2019 3:01 AM EDT Narrative Resulting Agency Comment Spec In Lab Manish Benitez MD CHEMISTRY ORDERABL ES Performing Organization Address [facility] de Phone Number [facility] [place] [address] * Troponin (08/30/2019 2:53 AM EDT) Troponin-T [...] ischemia ?? New or presumed new significant JK-taqodkz-B wave (ST-T) changes or new left bundle [...] additional sample may be indicated. Reference: Third [place] Definition of Myocardial Infarction. Journal of the [place] College [employer] Cardiology 2012;60:1581-98 Blood specimen (specimen) 08/30/2019 2:53 AM EDT 08/30/2019 3:01 AM EDT Narrative Resulting Agency Comment Spec In Lab Manish Benitez MD CHEMISTRY ORDERABL ES [facility] [place] [address] * (ABNORMAL) Differential, Automated (08/29/2019 8:30 PM EDT) Neutrophil % 56.5 % [facility] Neutrophil Absolute 3.58 1.70 - 6.10 x10(3)/mc L [facility] Lymph % 25.9 % [facility] Lymphocytes Abs 1.6 0.9 - 3.2 x10(3)/mc L [facility] Monocyte % 8.8 % [facility] Monocyte Abs 0.6 0.3 - 0.9 x10(3)/mc L [facility] Eos % 7.7 % [facility] Eosinophils Abs 0.5(H) 0.0 - 0.4 x10(3)/ L [facility] Basophil % 0.8 % [facility] Baso Absolute 0.0 0.0 - [...] Gran Absolute 0.02 0.00 - 0.04 x10(3)/[facility] Blood specimen (specimen) 08/29/2019 8:30 PM EDT 08/29/2019 9:11 PM EDT Narrative Resulting Agency Comment Spec In Lab Abeba SANDRA HEMATOLOGY ORDERABLE S [facility] [place] [address] * (ABNORMAL) Hemogram (08/29/2019 8:30 PM EDT) White Blood Cell 6.3 4.0 - 9.5 x10(3)/[facility] Red Blood Cell 5.03 4.00 - 5.21 x10(6)/[facility] [...] Platelet 267 145 - 357 x10(3)/mc L [facility] RDW Standard Deviation 46.4(H) 37.0 - 46.0 [facility] RDW coefficient of variation 13.6 11.5 - 14.1 % [facility] Mean Platelet Volume 11.3 7.6 - 12.9 [facility] NRBC% auto 0.0 % [facility] NRBC Absolute 0.000 0.000 - 0.000 x10(3)/mc L [facility] Blood specimen (specimen) 08/29/2019 8:30 PM EDT 08/29/2019 9:11 PM EDT Narrative Resulting Agency Comment Spec In Lab Abeba SANDRA HEMATOLOGY ORDERABLE S [facility] [place] [address] * Heparin (unfractionated) Level (08/29/2019 8:30 PM EDT) UF Heparin 0.46 IU/mL [facility] Comment: Guidelines for therapeutic unfractionated [...] MD HEMATOLOGY ORDERAB LES Performing Organization Address [facility] Co de Phone Number [facility] [place] [address] * CK (08/29/2019 8:30 PM EDT) Creatine Kinase 94 0 - 160 unit/L [facility] Blood specimen (specimen) 08/29/2019 8:30 PM EDT 08/29/2019 9:11 PM EDT Narrative Resulting Agency Comment Spec In Lab Manish Benitez MD CHEMISTRY ORDERABL ES Performing Organization Address [facility] de Phone Number [facility] [place] [address] * Troponin (08/29/2019 8:30 PM EDT) Pathologist [facility] Troponin-T <0.01 0.00 - 0.00 ng/mL [place] [...] ischemia ?? New or presumed new significant WJ-xbzfdyd-H wave (ST-T) changes or new left bundle [...] additional sample may be indicated. Reference: Third [place] Definition of Myocardial Infarction. Journal of the [place] College [employer]iology 2012;60:1581-98 Blood specimen (specimen) 08/29/2019 8:30 PM EDT 08/29/2019 9:11 PM EDT Narrative Resulting Agency Comment Spec In Lab Manish Benitez MD CHEMISTRY ORDERABL ES Performing Organization Address [facility]/ZIP Co de Phone Number [facility] [place] [address] * EKG 12 Lead (08/29/2019 4:19 PM EDT) Ventricular rate 67 BPM MUSE SYSTEM Atrial Rate 67 BPM MUSE SYSTEM P-R Interval 164 ms MUSE SYSTEM QRS Duration 80 ms MUSE SYSTEM Q-T Interval 478 ms MUSE SYSTEM QTC Calculated (Bezet) 505 ms MUSE SYSTEM Calculated P [place] 34 degrees MUSE SYSTEM Calculated R [place] 30 degrees MUSE SYSTEM Calculated T [place] -29 degrees MUSE SYSTEM INTERPRETATION Demand pacemaker; [...] Benitez MD ECG ORDERABLES Performing Organization Address [facility]/ZIP Co de Phone Number MUSE SYSTEM * (ABNORMAL) Differential, Automated (08/29/2019 3:10 PM EDT) Neutrophil % 58.3 % [facility] Neutrophil Absolute 3.79 1.70 - 6.10 x10(3)/mc L [facility] Lymph % 22.7 % [facility] Lymphocytes Abs 1.5 0.9 - 3.2 x10(3)/mc L [facility] Monocyte % 10.3 % [facility] Monocyte Abs 0.7 0.3 - 0.9 x10(3)/mc L [facility] Eos % 7.8 % [facility] Eosinophils Abs 0.5(H) 0.0 - 0.4 x10(3)/ L [facility] Basophil % 0.6 % [facility] Baso Absolute 0.0 0.0 - 0.1 x10(3)/[facility] Immature Gran % 0.30 % [facility] Comment: Immature granulocytes(IG's)percentage and absolute count will include metamyelocytes, myelocytes, and promyelocytes. Blood smears from CBCs yielding IG's will be scanned manually for concordance. If this scan disagrees with the automated IG or if promyelocytes are noted, a manual differential will be performed. Immature Gran Absolute 0.02 0.00 - 0.04 x10(3)/[facility] Blood specimen (specimen) 08/29/2019 3:10 PM EDT 08/29/2019 3:50 PM EDT Narrative Resulting Agency Comment Spec In Lab Abeba SANDRA HEMATOLOGY ORDERABLE S [facility] [place] [address] * (ABNORMAL) Hemogram (08/29/2019 3:10 PM EDT) White Blood Cell 6.5 4.0 - 9.5 x10(3)/[facility] Red Blood Cell 4.69 4.00 - 5.21 x10(6)/[facility] Hemoglobin 14.1 11.7 - 15.5 gm/dL [facility] Hematocrit 43.8 35.7 - 45.8 % [facility] Mean Cell Volume 93.4 82.6 - 94.4 fL [facility] Mean Cell Hemoglobin 30.1 27.1 - 32.0 pg [facility] Mean Cell Hemoglobin Concentration 32.2 31.7 - 35.0 gm/dL [facility] Platelet 235 145 - 357 x10(3)/[facility] RDW Standard Deviation 47.2(H) 37.0 - 46.0 fL [facility] RDW coefficient of variation 13.7 11.5 - 14.1 % [facility] Mean Platelet Volume 11.5 7.6 - 12.9 [facility] NRBC% auto 0.0 % [facility] NRBC Absolute 0.000 0.000 - 0.000 x10(3)/mc L [facility] Blood specimen (specimen) 08/29/2019 3:10 PM EDT 08/29/2019 3:50 PM EDT Narrative Resulting Agency Comment Spec In Lab Abeba SANDRA HEMATOLOGY ORDERABLE S Performing Organization Address [facility] Co de Phone Number [facility] [place] [address] * Hepatic Function Panel (08/29/2019 3:10 PM [...] City/[facility]/ZIP Co de Phone Number [facility] [place] [address] * TSH (08/29/2019 3:10 PM EDT) [facility] Thyroid Stimulating Hormone 1.87 0.27 - 4.20 mcIU/mL [facility] Blood specimen (specimen) 08/29/2019 3:10 PM EDT 08/29/2019 3:52 PM EDT Narrative Resulting Agency Comment Spec In Lab Manish Benitez MD CHEMISTRY ORDERABL ES Performing Organization Address [facility]/ZIP Co de Phone Number [facility] [place] [address] * (ABNORMAL) pro-Brain Natriuretic Peptide (08/29/2019 3:10 PM EDT) [facility] NT-proBNP 1,242(H) <=125 pg/mL [facility] Blood specimen (specimen) 08/29/2019 3:10 PM EDT 08/29/2019 3:52 PM EDT Narrative Resulting Agency Comment Spec In Lab Manish Benitez MD CHEMISTRY ORDERABL ES Performing Organization Address [facility] Co de Phone Number [facility] [place] [address] * CK (08/29/2019 3:10 PM EDT) [facility] Creatine Kinase 96 0 - 160 unit/L [facility] Blood specimen (specimen) 08/29/2019 3:10 PM EDT 08/29/2019 3:52 PM EDT Narrative Resulting Agency Comment Spec In Lab Manish Benitez MD CHEMISTRY ORDERABL ES Performing Organization Address [facility] Co de Phone Number [facility] [place] [address] * Troponin (08/29/2019 3:10 PM EDT) [facility] Troponin-T <0.01 0.00 - 0.00 ng/mL [place] [...] ischemia ?? New or presumed new significant LO-hoooriq-X wave (ST-T) changes or new left bundle [...] additional sample may be indicated. Reference: Third [place] Definition of Myocardial Infarction. Journal of the [place] College of Cardiology 2012;60:1581-98 Blood specimen (specimen) 08/29/2019 3:10 PM EDT 08/29/2019 3:52 PM EDT Narrative Resulting Agency Comment Spec In Lab Manish Benitez MD CHEMISTRY ORDERABL ES [facility] [place] [address] * (ABNORMAL) APTT (08/29/2019 3:10 PM EDT) [...] MD HEMATOLOGY ORDERAB LES Performing Organization Address [facility]/ZIP Co de Phone Number [facility] [place] [address] * (ABNORMAL) Prothrombin Time (08/29/2019 3:10 PM [...] MD HEMATOLOGY ORDERAB LES Performing Organization Address [facility]/ZIP Co de Phone Number [facility] [place] [address] * (ABNORMAL) Basic Metabolic Panel (non-fasting) (08/29/2019 [...] of body mass or the acutely ill. http://Go[employer](Cabeo)/CertiRxnkf eGFR 94 >=60 mL/min/1. 73 m?? [facility] Comment: The eGFR was calculated using the CKD-EPI equation. As with all creatinine based estimates of kidney function, eGFR values calculated with the CKD-EPI equation are not accurate in patients with acute kidney failure, extremes of body mass or the acutely ill. http://GoTaxi(Cabeo)/[facility] OKLAHOMA CITYnkf Blood specimen (specimen) 08/29/2019 3:10 PM EDT 08/29/2019 3:52 PM EDT Narrative Resulting Agency Comment Spec In Lab Manish Benitez MD CHEMISTRY ORDERABL ES [facility] [place] [address] documented in this encounter Visit Diagnoses Not [...] 0842 (Given - Provider: Mark Nick RN)1357 ([facility] Hold - Provider: Admin Adt - Reason: Transfer to a Procedural area)1530 ([facility] Unhold - Provider: Admin Adt) atorvastatin (Lipitor) tablet 80 mg (CANCELED) 80 mg, Oral, EVERY EVENING, First dose on Wed08/29/19 at 1715, Until Discontinued, Routine 1701 (Given - Provider: Mark Nick RN) 1357 ([facility] Hold - Provider: Admin Adt - Reason: Transfer to a Procedural area)1530 ([facility] Unhold - Provider: Admin Adt) clopidogreL (Plavix) tablet 75 mg (CANCELED) 75 mg, Oral, DAILY, First dose on Wed08/30/19 at 0900, Until Discontinued, Routine 0842 (Given - Provider: Mark Nick RN)1357 ([facility] Hold - Provider: Admin Adt - Reason: Transfer to a Procedural area)1530 ([facility] Unhold - Provider: Admin Adt) DULoxetine DR (Cymbalta) capsule 60 mg 60 mg, Oral, NIGHTLY, First dose on Wed08/29/19 at 2100, Until Discontinued, Routine 2048 (Given - Provider: Efrain Verma RN) 1357 ([facility] Hold - Provider: Admin Adt - Reason: Transfer to a Procedural area)1530 ([facility] Unhold - Provider: Admin Adt)2030 (Given [...] - Reason: Transfer to a Procedural area)1530 ([facility] Unhold - Provider: Admin Adt)2029 (Given [...] (Given - Provider: Efrain Verma RN) 1357 ([facility] Hold - Provider: Admin Adt - Reason: Transfer to a Procedural area)153 ([facility] Unhold - Provider: Admin Adt)2030 (Given - Provider: Gauri Arroyo RN) topiramate (Topamax) tablet 50 mg 50 mg, Oral, DAILY, First dose on Wed08/30/19 at 0900, Until Discontinued, Routine 0843 (Given - Provider: Mark Nick RN)1357 ([facility] Hold - Provider: Admin Adt - Reason: Transfer to a Procedural area)153 ([facility] Unhold - Provider: Admin Adt) 0817 [...] - Reason: Transfer to a Procedural area)1530 ([facility] Unhold - Provider: Admin Adt) perflutren [...] UA) documented in this encounter Care Teams Non Profit Director Relationship Specialty Start Date End Date Tim Rogers DNP PCP - General Family Medicine 08/28/19 06/08/21 documented as of this encounter
--- OUTSIDE RECORDS SUMMARY | 2024-01-24 21:16 | XMS_ITS | Encounter Summary ---
Author Organization [facility] [place] [address] Care Team Providers Care Escrow Agent Name Role Phone Tim Rogers DNP Primary Care Provider [phone] Encounter Details Date Type Department Care Team (Late st Contact Info) Description 08/28/2019 External [place] [address] Social History Tobacco Use Types Packs/Day Years [...] PM EST Office Visit Cardiology at [address] [phone] Jaspreet Kinsey MD [facility] [place] [address] documented as of this encounter Procedures Procedure Name Priority Date/Time Associated Diagnosis Comments ECG SCAN Routine 08/28/2019 documented in this encounter Results * Scan Doc: ECG (08/28/2019) Historical Provider MD FLEMING MGR SCAN EX T ORDR/RSLT documented in this encounter Visit Diagnoses Not on filedocumented in this encounter Care Teams Escrow Agent Relationship Specialty Start Date End Date Tim Rogers DNP PCP - General Family Medicine 08/28/19 06/08/21 documented as of this encounter
--- OUTSIDE RECORDS SUMMARY | 2024-01-24 21:16 | XMS_ITS | Encounter Summary ---
Author Organization [facility] [place] [address] Care Team Providers Care Community Education Specialist Name Role Phone Dustin Romero MD Primary Care Provider [phone] Reason for Visit * Reason Comments Allergic Rhinitis Encounter Details Date Type Department Care Team (Late st Contact Info) Description 06/26/2010 9:15 AM EDT [place] [address] Lashonda York MD [facility] [place]ERGY [place] [address] Asthma (Primary Dx); Rhinitis; Rhinitis, nonallergic, chronic [...] pollen: Axel Tree pollen: Birch, Shay, Maple, [place], Beech, [place] pollen: [place], Short Ragweed, Pigweed, Molds: [...] 1:00 PM EST Office Visit Cardiology at [address] [phone] Jaspreet Kinsey MD [facility] [place] [address] Scheduled Orders Name Type Priority Associated Diagnoses Orde r Schedule Spirometry without bronchodilator PFT Routine Asthma Ordered: 06/26/2010 documented as of this encounter Visit Diagnoses Diagnosis Asthma- Primary Unspecified asthma Rhinitis Chronic rhinitis Rhinitis, nonallergic, chronic Chronic rhinitis documented in this encounter Care Teams Community Education Specialist Relationship Specialty Start Date End Date Dustin Romero MD [facility] [address] [place] [address] PCP - General 06/11/10 08/27/19 documented as of this encounter
--- OUTSIDE RECORDS SUMMARY | 2024-01-24 21:16 | XMS_ITS | Encounter Summary ---
Author Organization [place] [address] Care Team Providers Care Tire Shop Manager Name Role Phone Tim Rogers DNP Primary Care Provider [phone] Reason for Visit * Reason Comments Referral Dyspnea On Exertion * Consultation (Routine) - Specialty Diagnoses / Procedures Referred By Jayant harris Referred To Contact Pulmonology Diagnoses Other forms of dyspnea Virginia Neal MD [facility] [address] [place] [address] [facility] Pulmonology [address] [place] [id number] Referral ID Status Reason Start Date Expiration Date V isits Requested Visits Authorized [id number] Consult, Test & Treat Connection Center PCP Updated and/or Approved 04/05/2020 10/02/2020 6 6 Encounter Details Date Type Department Care Team (Latest Contact Info) Description 08/01/2020 1:00 PM EDT Office [place] [address] Beto Miller MD [facility] [place] [address] Asthma, chronic, moderate persistent, uncomplicated [...] Miller MD - 08/01/2020 1:00 PM EDT [facility] Section of Pulmonary Medicine Outpatient Consultation Date of Encounter: 08/01/2020 Referring Provider: Virginia Neal Md [address] [place] [address] PCP: [address] [place] [address] Reason for Consult: I was asked to [...] unable to breathe and was sent to [facility] for the possibility of non-ST elevation myocardial [...] ONCE ??? fluticasone propionate (FLONASE) 50 mcg/actuation [place], Suspension 1 spray by Each Nare route [...] CT scan of the chest performed in [facility]. 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 She has been prescribed Symbicort but [...] with Symbicort. Inhaler technique was reviewed with Lioda today. Plan: ?? Prednisone 40 mg for [...] MD Pulmonary and Critical Care Medicine Pager #[phone] documented in this encounter Plan of Treatment Upcoming Encounters Date Type Department Care Team (Late st Contact Info) Description 02/10/2024 1:00 PM EST Office Visit Cardiology at [address] [place] [phone] Jaspreet Kinsey MD [facility] [place] [address] documented as of this encounter Visit Diagnoses Diagnosis Asthma, chronic, moderate persistent, uncomplicated documented in this encounter Care Teams Tire Shop Manager Relationship Specialty Start Date End Date Tim Rogers DNP PCP - General Family Medicine 08/28/19 06/08/21 documented as of this encounter
--- OUTSIDE RECORDS SUMMARY | 2024-01-24 21:16 | XMS_ITS | Encounter Summary ---
Author Organization [facility] [place] [address] Care Team Providers Care Cotton Cleaner Name Role Phone Tim Rogers DNP Primary Care Provider [phone] Encounter Details Date Type Department Care Team (Late st Contact Info) Description 07/12/2020 Telephone [place] [phone] Jo Ann Colon Social History Tobacco Use [...] PM EST Office Visit Cardiology at [address] [phone] Jaspreet Kinsey MD [facility] [place] [address] documented as of this encounter Visit Diagnoses Not on filedocumented in this encounter Care Teams Cotton Cleaner Relationship Specialty Start Date End Date Tim Rogers DNP PCP - General Family Medicine 08/28/19 06/08/21 documented as of this encounter
--- OUTSIDE RECORDS SUMMARY | 2024-01-24 21:16 | XMS_ITS | Encounter Summary ---
Author Organization [facility] Address [address] [place] [address] Care Team Providers Care Product Marketing Specialist Name Role Phone Unknown, Provider Primary Care Provider Unava ilable Encounter Details Date Type Department Care Team (Late st Contact Info) Description 07/29/2022 Lab Requisition [facility] Pathology & Laboratory Medicine - [facility] [address] [place] [address] Outr Resulting Lab, Provider Social History Tobacco [...] 64 - 147 % 08/05/2022 11:55 EDT [facility] Comment: a.Acquired Protein [...] ORD ERABLES Final Result Performing Organization Address [facility]/ZIP Co de Phone Number [facility] [address] [place] [address] * PROTEIN C ACTIVITY (07/29/2022 9:25 EDT) Protein C Clot 132 71 - 199 % 08/05/2022 11:55 EDT [facility] Comment: a. Acquired [...] ORD ERABLES Final Result Performing Organization Address City/[facility]/ZIP Co de Phone Number [facility] [address] [place] [address] documented in this encounter Visit Diagnoses Not on filedocumented in this encounter Care Teams Product Marketing Specialist Relationship Specialty Start Date End Date Unknown, Provider, PCP - General 01/28/10 documented as of this encounter
--- OUTSIDE RECORDS SUMMARY | 2024-01-24 21:16 | XMS_ITS | Encounter Summary ---
[place] [address] Care Team Providers Care Clinical Informatics Physician Name Role Phone Dustin Nino MD Primary Care Provider [phone] Encounter Details Date Type Department Care Team (Late st Contact Info) Description 06/19/2010 [place] [address] Lashonda York MD [facility] [address] [place] [address] Social History Tobacco Use Types Packs/Day Years [...] PM EST Office Visit Cardiology at [address] [place] [address] Jaspreet Kinsey MD [facility] [place] [address] documented as of this encounter Visit Diagnoses Not on filedocumented in this encounter Care Teams Clinical Informatics Physician Relationship Specialty Start Date End Date Dustin Nino MD [facility] [address] [place] [address] PCP - General 06/11/10 08/27/19 documented as of this encounter
--- OUTSIDE RECORDS SUMMARY | 2024-01-24 21:16 | XMS_ITS | Encounter Summary ---
Author Organization [facility] [place] [address] Care Team Providers Care Insulation Cutter And Former Name Role Phone Tim Rogers DNP Primary Care Provider [phone] Encounter Details Date Type Department Care Team (Late st Contact Info) Description 08/28/2019 [place] [address] Kia Angelo MD [facility] [place] [address] Social History Tobacco Use Types Packs/Day Years [...] Dr. Pooja Iyer, Dr. Weathers Patient Location: [facility] ED Reason for call: transfer request for [...] can keep and manage patient in the [facility] ED overnight pending bed availability (they do [...] PM EST Office Visit Cardiology at [address] [place] [address] Jaspreet Kinsey MD [facility] [place] [address] documented as of this encounter Visit Diagnoses Not on filedocumented in this encounter Care Teams Insulation Cutter And Former Relationship Specialty Start Date End Date Tim Rogers DNP PCP - General Family Medicine 08/28/19 06/08/21 documented as of this encounter
--- OUTSIDE RECORDS SUMMARY | 2024-01-24 21:16 | XMS_ITS | Encounter Summary ---
Author Organization [facility] Address [address] [place] [address] Care Team Providers Care Wheel Fitter Name Role Phone Unknown, Provider Primary Care Provider Unava ilable Encounter Details Date Type Department Care Team (Late st Contact Info) Description 09/16/2020 Lab Requisition [facility] Pathology & Laboratory Medicine - [facility] [address], [place] [address] Outr Resulting Lab, Provider Social History Tobacco [...] IgE 13 <158 IU/mL 09/18/2020 8:45 EDT [facility] Blood VENOUS BLOOD / Unknown 09/16/2020 13:43 EDT 09/16/2020 20:51 EDT us Provider Outr Resulting Lab CHEMISTRY & BLOOD GA S ORDERABLES Final Result [facility] [address] [place] [address] * EXTRACTABLE NUCLEAR ANTIGEN PANEL (09/16/2020 13:43 EDT) SSA Antibody 1.2 <20.0 Units 09/17/2020 15:28 EDT [facility] Comment: ? Negative: <20.0 Units ? Weak Positive: 20.0 - 39.9 Units ? Moderate Positive: 40.0 - 80.0 Units ? Strong Positive: >80.0 Units Results were obtained with the [employer] QUANTA Lite SS-A VAIBHAV. ??SS-A values obtained with different manufacturers' assay methods may not be used interchangeably. ??The magnitude of the reported IgG levels cannot be correlated to an endpoint titer. SSB Antibody 4.9 <20.0 Units 09/17/2020 15:28 [facility] Comment: ? Negative: <20.0 Units ? Weak Positive: 20.0 - 39.9 Units ? Moderate Positive: 40.0 - 80.0 Units ? Strong Positive: >80.0 Units Results were obtained with the [employer] QUANTA Lite SS-B VAIBHAV. ??SS-B values obtained with different manufacturers' assay methods may not be used interchangeably. ??The magnitude of the reported IgG levels cannot be correlated to an endpoint titer. SM (Alcantar) Antibody 3.4 <20.0 Units 09/17/2020 15:28 [facility] Comment: ? Negative: <20.0 Units ? Weak Positive: 20.0 - 39.9 Units ? Moderate Positive: 40.0 - 80.0 Units ? Strong Positive: >80.0 Units Results were obtained with the [employer] QUANTA Lite Sm VAIBHAV. ??Sm values obtained with different manufacturers' assay methods may not be used interchangeably. ??The magnitude of the reported IgG levels cannot be correlated to an endpoint titer. FUEL OIL CLERK Antibody 1.5 <20.0 Units 09/17/2020 15:28 EDT [facility] Comment: ? Negative: <20.0 Units ? Weak Positive: 20.0 - 39.9 Units ? Moderate Positive: 40.0 - 80.0 Units ? Strong Positive: >80.0 Units Results were obtained with the [employer] Quanta Lite FUEL OIL CLERK VAIBHAV. FUEL OIL CLERK values obtained with different circular knitter helper's assay methods may not be used interchangeaby. ??The magnitude of the reported IgG levels cannot be be correlated to an endpoint titer. A positive result in the Quanta Lite FUEL OIL CLERK VAIBHAV indicates the presence of antibodies reactive with the FUEL OIL CLERK/Sm complex but cannot distinguish between anti-Sm and anti-FUEL OIL CLERK activity. Blood VENOUS BLOOD / Unknown 09/16/2020 13:43 EDT 09/16/2020 20:51 EDT us Provider Outr Resulting Lab IMMUNOLOGY AND SEROL OGY ORDERABLES Final Result [facility] [address] [place] [id number] * (ABNORMAL) ANTI NUCLEAR AB (KATHRINE), IFA (09/16/2020 13:43 EDT) KATHRINE Interpretation Positive(A) Negative 09/17/2020 15:08 EDT [facility] Comment: For titers greater [...] Pattern 1 1:160 Speckled 09/17/2020 15:08 EDT [facility] Blood VENOUS BLOOD / Unknown 09/16/2020 13:43 EDT 09/16/2020 20:51 EDT Narrative [facility] - 09/17/2020 15:08 EDT Results were obtained with the [employer] NOVA Lite HEp-2 KATHRINE Kit by indirect immunofluorescence. us Provider Outr Resulting Lab IMMUNOLOGY AND SEROL OGY ORDERABLES Final Result [facility] [address] [place] [address] documented in this encounter Visit Diagnoses Not on filedocumented in this encounter Care Teams Wheel Fitter Relationship Specialty Start Date End Date Unknown, Provider, PCP - General 01/28/10 documented as of this encounter
--- OUTSIDE RECORDS SUMMARY | 2024-01-24 21:16 | XMS_ITS | Encounter Summary ---
Author Organization [facility] [place] [address] Care Team Providers Care 2Nd Grade Teacher Name Role Phone Tim Rogers DNP Primary Care Provider [phone] Encounter Details Date Type Department Care Team (Late st Contact Info) Description 04/26/2020 Orders [place] [address] [facility] [place] [address] Dyspnea, unspecified type (Primary Dx) Social History [...] PM EST Office Visit Cardiology at [address] [phone] [facility] [place] [address] documented as of this encounter Results * [...] / FVC LLN 69 % COMPAS PFT NBB97-94 Actual Pre-BD 3.14 L/s COMPAS PFT BYG92-65 Pre-BD % of Predicted 116 % COMPAS PFT KPN86-28 Predicted 2.70 L/s COMPAS PFT QCR40-92 Pre-BD Z-Score 0.51 COMPAS PFT FVC Actual [...] PFT FEV1/FVC Post-BD Z-Score 1.94 COMPAS PFT GXU07-93 Actual Post-BD 4.26 L/s COMPAS PFT TIY43-23 Post-BD % of Predicted 158 % COMPAS PFT LZU70-87 Post-BD Z-Score 1.67 COMPAS PFT DLCO Hb [...] type documented in this encounter Care Teams 2Nd Grade Teacher Relationship Specialty Start Date End Date Tim Rogers DNP PCP - General Family Medicine 08/28/19 06/08/21 documented as of this encounter
--- OUTSIDE RECORDS SUMMARY | 2024-01-24 21:16 | XMS_ITS | Encounter Summary ---
[place] [address] Care Team Providers Care Gluing Machine Operator Electronic Name Role Phone Dustin Nino MD Primary Care Provider [phone] Encounter Details Date Type Department Care Team (Late st Contact Info) Description 06/20/2010 [place] [address] Lashonda York MD [facility] [place] [address] Social History Tobacco Use Types Packs/Day Years [...] PM EST Office Visit Cardiology at [address] [place] [address] Jaspreet Kinsey MD [facility] [place] [address] documented as of this encounter Visit Diagnoses Not on filedocumented in this encounter Care Teams Gluing Machine Operator Electronic Relationship Specialty Start Date End Date Dustin Nino MD [facility] [address] [place] [address] PCP - General 06/11/10 08/27/19 documented as of this encounter
--- OUTSIDE RECORDS SUMMARY | 2024-01-24 21:16 | XMS_ITS | Encounter Summary ---
Author Organization [facility] [place] [address] Care Team Providers Care Coremaker Pipe Name Role Phone Tim Rogers DNP Primary Care Provider Encounter Details Date Type Department Care Team (Late st Contact Info) Description 08/28/2019 12:05 AM EDT Ancillary Procedure Radiology Library at [facility] [place] [address] Veronica Bello, [address] [place] [address] Social History Tobacco Use Types Packs/Day Years [...] PM EST Office Visit Cardiology at [address] [place] [phone] Jaspreet Kinsey MD [facility] [place] [address] documented as of this encounter Procedures Procedure Name Priority Date/Time Associated Diagnosis Comments FILM LIBRARY STORAGE ONLY CT CHEST Routine 08/28/2019 12:05 AM EDT documented in this encounter Results * Film Library- Storage Only CT Chest (08/28/2019 12:05 AM EDT) Narrative [facility] - 08/29/2019 1:46 PM EDT This exam is auto-finalizing. It's purpose is for storage only. Veronica Bello APRN IMG FILM LIBRARY ORD ERABLES Performing Organization Address City/State/[facility] Co de Phone Number [place], [place] documented in this encounter Visit Diagnoses Not on filedocumented in this encounter Care Teams Coremaker Pipe Relationship Specialty Start Date End Date Tim Rogers DNP PCP - General Family Medicine 08/28/19 06/08/21 documented as of this encounter
--- OUTSIDE RECORDS SUMMARY | 2024-01-24 21:16 | XMS_ITS | Referral Summary ---
Author Organization [facility] Address [address] [place] [address] Care Team Providers Care Dermatology Physician Name Role Phone Unknown, Provider Primary Care [...] C Antibody Negative Negative 05/20/2020 11:15 EDT [facility] Blood VENOUS BLOOD / Unknown 05/17/2020 14:00 EST 05/19/2020 16:37 EDT us Provider Outr Resulting Lab CHEMISTRY & BLOOD GA S ORDERABLES Final Result [facility] [address] [place] [address] from Last 3 Months or Most Recently Relevant to Health Maintenance Care Teams Dermatology Physician Relationship Specialty Start Date End Date Unknown, Provider, PCP - General 01/28/10
--- OUTSIDE RECORDS SUMMARY | 2024-01-24 21:16 | XMS_ITS | Encounter Summary ---
Author Organization [facility] [place] [address] Care Team Providers Care Mechanical Sound Technician Name Role Phone Tim Rogers [facility] Primary Care Provider Encounter Details Date Type Department Care Team (Late st Contact Info) Description 08/28/2019 Ancillary Procedure Radiology Library at [facility] [place] [address] Veronica Bello, HEALTHCARE TRANSLATOR [address] [place] [address] Social History Tobacco Use Types Packs/Day Years [...] PM EST Office Visit Cardiology at [address] [phone] Jaspreet Kinsey MD [facility] [place] [address] documented as of this encounter Procedures Procedure Name Priority Date/Time Associated Diagnosis Comments FILM LIBRARY STORAGE ONLY DX CHEST Routine 08/28/2019 12:00 AM EDT documented in this encounter Results * Film Library- Storage Only DX Chest (08/28/2019 12:00 AM EDT) Narrative [facility] - 08/29/2019 1:45 PM EDT This exam is auto-finalizing. It's purpose is for storage only. Veronica Bello HEALTHCARE TRANSLATOR IMG FILM LIBRARY ORD ERABLES Performing Organization Address City/State/[facility] Co de Phone Number [place], [place] documented in this encounter Visit Diagnoses Not on filedocumented in this encounter Care Teams Mechanical Sound Technician Relationship Specialty Start Date End Date Tim Rogers DNP PCP - General Family Medicine 08/28/19 06/08/21 documented as of this encounter
--- OUTSIDE RECORDS SUMMARY | 2024-01-24 21:16 | XMS_ITS | Clinical Summary ---
Author Organization [facility] Address [address] [place] [address] Care Team Providers Care Informatica Name Role Phone Unknown, Provider Primary Care [...] C Antibody Negative Negative 05/20/2020 11:15 EDT [facility] Blood VENOUS BLOOD / Unknown 05/17/2020 14:00 EST 05/19/2020 16:37 EDT us Provider Outr Resulting Lab CHEMISTRY & BLOOD GA S ORDERABLES Final Result [facility] [address] [place] [address] from Last 3 Months or Most Recently Relevant to Health Maintenance Care Teams Informatica Relationship Specialty Start Date End Date Unknown, Provider, PCP - General 01/28/10
--- OUTSIDE RECORDS SUMMARY | 2024-01-24 21:16 | XMS_ITS | Encounter Summary ---
Author Organization [facility] [place] [address] Care Team Providers Care Offc Spec Name Role Phone Tim Rogers DNP Primary Care Provider [phone] Reason for Visit * - Closed Specialty Diagnoses / Procedures Referred By Jayant t Referred To Contact Procedures Film Library- Storage Only CT Chest Tim Rogers DNP [address] [place] [address] Referral ID Status Reason Start Date Expiration Date Visits Re quested Visits Authorized [id number] Closed 08/02/2020 08/02/2021 1 1 Encounter Details Date Type Department Care Team ([facility] Contact Info) Description 04/26/2020 Ancillary Procedure Radiology Library at [facility] [place] [address] Tim Rogers DNP [address] [place], [place] [address] Social History Tobacco Use Types Packs/Day Years [...] 1:00 PM EST Office Visit Cardiology at [address] [place] [phone] Jaspreet Kinsey MD [facility] [place] [address] documented as of this encounter Procedures Procedure Name Priority Date/Time Associated Diagnosis Comments FILM LIBRARY STORAGE ONLY CT CHEST Routine 04/26/2020 12:00 AM EST documented in this encounter Results * Film Library- Storage Only CT Chest (04/26/2020 12:00 AM EST) Narrative [facility] - 08/02/2020 9:42 AM EDT This exam is auto-finalizing. It's purpose is for storage only. Tim Rogers DNP [facility] FILM LIBRARY OR DERABLES Performing Organization Address City/State/[facility] Co de Phone Number [place], [place] documented in this encounter Visit Diagnoses Not on filedocumented in this encounter Care Teams Offc Spec Relationship Specialty Start Date End Date Tim Rogers DNP PCP - General Family Medicine 08/28/19 06/08/21 documented as of this encounter
--- OUTSIDE RECORDS SUMMARY | 2024-01-24 21:16 | XMS_ITS | Encounter Summary ---
Author Organization [facility] Address [address] [place] [address] Care Team Providers Care Reporting Consultant Name Role Phone Unknown, Provider Primary Care Provider Unava ilable Encounter Details Date Type Department Care Team (Late st Contact Info) Description 07/27/2022 Lab Requisition [facility] Pathology & Laboratory Medicine - [facility] [address] [place], [place] [address] Outr Resulting Lab, Provider Social History Tobacco [...] Lyme Ab Negative Negative 07/28/2022 10:37 EDT [facility] Blood VENOUS BLOOD / Unknown 07/27/2022 10:39 EDT 07/27/2022 16:45 EDT us Provider Outr Resulting Lab IMMUNOLOGY AND SEROL OGY ORDERABLES Final Result [facility] [address] [place] [address] documented in this encounter Visit Diagnoses Not on filedocumented in this encounter Care Teams Reporting Consultant Relationship Specialty Start Date End Date Unknown, Provider, PCP - General 01/28/10 documented as of this encounter
--- OUTSIDE RECORDS SUMMARY | 2024-01-24 21:16 | XMS_ITS | Encounter Summary ---
Author Organization [facility] Address [address] [place] [address] Care Team Providers Care Supervisory Forester Name Role Phone Unknown, Provider Primary Care Provider Unava ilable Encounter Details Date Type Department Care Team (Late st Contact Info) Description 01/07/2021 Lab Requisition [facility] Pathology & Laboratory Medicine - [address] [phone] Outr Resulting Lab, Provider Social History Tobacco [...] MICROBIOLOGY - GENER AL ORDERABLES Final Result [facility] [address] [place] [address] * COVID-19 TESTING (01/06/2021 14:00 EDT) COVID-19 rt-PCR Result Negative Negative 01/08/2021 12:42 EDT [facility] Comment: This test has not [...] was performed using the ric SARS-CoV-2 assay ([employer] on the Ric 6800 System Performing Lab Ric [address] [facility] Lab 01/08/2021 12:42 EDT [facility] Swab 01/06/2021 14:0 0 EDT 01/07/2021 17:19 EDT us Provider Outr Resulting Lab MICROBIOLOGY - GENER AL ORDERABLES Final Result [facility] [address] [place] [address] documented in this encounter Visit Diagnoses Not on filedocumented in this encounter Care Teams Supervisory Forester Relationship Specialty Start Date End Date Unknown, Provider, PCP - General 01/28/10 documented as of this encounter
--- OUTSIDE RECORDS SUMMARY | 2024-01-24 21:16 | XMS_ITS | Encounter Summary ---
[place] [address] Care Team Providers Care Stripper And Taper Name Role Phone Tim Rogers DNP Primary Care Provider Reason for Visit * Auth/Cert Specialty Diagnoses / Procedures Referred By Contac t Referred To Contact Diagnoses NSTEMI (non-ST elevated myocardial infarction) NSTEMI Procedures EMERGNECY IPI Referral ID Status Reason Start Date Expiration Date Visits Re quested Visits Authorized [id number] 1 1 Encounter Details Date Type Department Care Team (Latest Contact Info) Description 08/29/2019 2:38 PM EDT - 08/31/2019 6:24 PM EDT Hospital Encounter Intermediate [place] [phone] Manish Benitez MD [facility] [address] Non-ST elevation myocardial infarction (NSTEMI); SOB (shortness [...] this encounter Discharge Summaries * Natalia Urbina, ECONOMETRICIAN - 08/30/2019 5:18 PM EDT Images from the original note were not included. Discharge Summary Patient Name: Loida Roque Patient Age: 49 y.o. Language: Northern Irish Race: White Ethnicity: [...] pain overnight ~3 weeksago concerning for missed MD. ??In the ED, her EKG was abnormal [...] follow-up visit please call one of the perioperative educator on Wednesday-Wednesday between the hours of 8A- 5PM. Cardiology Clinic number @ [phone] If off hours contact the cardiac fellow on- call. Hospital Heater Engineer Helper can help you. Hospital phone number [phone] Return to work: In 1 week Drivin hours post catheterization Follow up Appointments: Doctor Where Phone # Date Time Bouchra Frias APRN [address] / [facility] [id number] 09/13/19 8:30 Discharge References/Attachments None Discussed with MD Natalia Lira APRN Pager [phone] 08/31/2019 documented in this encounter Discharge Instructions * Discharge Instructions* Natalia Urbina APRN - 08/31/2019 3:54 PM EDT Call your doctor if: Chest pain, dyspnea, pain or swelling in legs occurs. If you have non-emergent questions, prior to your follow-up visit please call one of the perioperative educator on Wednesday-Wednesday between the hours of 8A- 5PM. Cardiology Clinic number @ [phone] If off hours contact the cardiac fellow on- call. Hospital Heater Engineer Helper can help you. [facility] phone number [phone] Return to work: In 1 week Drivin hours post catheterization Follow up Appointments: Doctor Where Phone # Date Time Bouchra Frias APRN [address] / [facility] [id number] 09/13/19 8:30 * Attachments The following attachments cannot be sent through Care Everywhere. * Cardiac Catheterization: Left (Northern Irish) documented in this encounter Medications at Time of Discharge Medication Sig Dispensed Refills Start Date End Date fluticasone propionate (FLONASE) 50 mcg/actuation [place], Suspension 1 spray by Each Nare route [...] Spirometry Patient Loida Roque 49 y.o. 1970 [id number] Spirometry Spirometry performed successfully. Waiting for read [...] Pt wheeled out of the unit with MANAGER SUPPLIER. * Leonardo Jolly - 08/31/2019 12:25 PM EDT Nutrition Services Note - Low Nutrition Acuity Loida Roque is a 49 y.o. female Reason for intervention: education [facility] + NA Nutrition Plan: Patient [...] Healthy Menu Choices/Cardiac diet ([facility]-Diet) Frequency: Effective Now Number of [...] consulted in the interim. Beverleyameya Jolly Pager: [phone] * Manish Benitez MD - 08/31/2019 9:33 AM EDT Images from the original note were not included. Inpatient Cardiology Progress Note Patient Name: Loida Roque Service: LOCOMOTIVE CRANE ENGINEER / PA Responsible Attending: Manish Benitez MD [...] See remainder of report for additional findings. [facility] 08/29 Preliminary findings: Right dominant Normal [...] overnight ~3 weeks ago concerning for missed MD. ??In the ED, her EKG was abnormal with diffuse STTW abnormalities but unchanged from prior EKG in 200 7.?Troponin??I??positive at 0.25 (ULN 0.06). ??Vitals stable and patient asymptomatic at rest. ??DDimer positive at 1037 thus??CT-PE protocol??completed. ??No PE or acute aortic pathology. ??She is transferred for further work up of NSTEMI. ??EF 62% and no wall motions seen on echo. [facility] with normal cors and LVEDP 15. [...] Echo with EF 62% and no WMA [facility] with normal cors A1C 5.4% Bedside PFTs today ?? FULL CODE Discussed with Manish Benitez MD Natalia Urbina, ECONOMETRICIAN Pager [phone] 08/31/2019 Cardiology Attending Note I interviewed and examined the patient during comprehensive bedside rounds. I concur with the summary of interval events, active hospital-focused problem list and plan of care as described in the note below. I personally reviewed the medications, laboratory results, treatment decisions and updated the patient. Manish Benitez MD, FACP, FAC Section of Cardiovascular Medicine [facility] Dinkey Driverinformation technology instructor Counts Include 234 Beds At [facility] at [facility] This patient meets or has [...] Progress Note Patient Name: Loida Roque Service: LOCOMOTIVE CRANE ENGINEER / PA Responsible Attending: Manish Benitez MD [...] overnight ~3 weeks ago concerning for missed MD. 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 fluticasone propionate (FLONASE) 50 mcg/actuation [place], Suspension 1 spray by Each Nare route [...] overnight ~3 weeks ago concerning for missed MD. In the ED, her EKG was abnormal with diffuse STTW abnormalities but unchanged from prior EKG in 2006. Troponin I positive at 0.25 (ULN 0.06). Vitals stable and patient asymptomatic at rest. DDimer positive [id number] thus CT-PE protocol completed. No PE or acute aortic pathology. She is transferred for furtherwork up of NSTEMI. Plan Echo and coronary angiography. TREATMENT PLAN: #NSTEMI Admit to cardiology Trend troponin - 1st negative at [facility] ProBNP 1242; Admit weight 207 [...] MD, FACP, FACC Section of Cardiovascular Medicine [facility] Dinkey Driverinformation technology instructor Counts Include 234 Beds At [facility] at [facility] This patient meets or has [...] Primary care provider on file: Tim Rogers, ECONOMETRICIAN [phone] Advance Directive on file and Code Status: Full Code Patient???s Functional Status: Independent w/o device Living Situation: lives with Boby Roque (Spouse) [phone] (M) at [address] [place] [address] Supports: Boby, Mother son and daughter Assessment: Patient with no apparent RNCM/SW needs at this time. No housing, transportation, insurance, resources concerns identified at this time. Supports in place to achieve a safe post-hospital transition. No identified barriers to accessing necessary care and/or follow-up after discharge. Plan: Patient to d/c to home when medically ready. electrical technician/[employer] will continue to follow patient???s progress and remain available if situation changes for coordination of care, psychosocial support and/or discharge planning. Angela Loving RN * Brief Op Note - Jessee Malone MD - 08/30/2019 2:31 PM EDT Preliminary Cardiac Catheterization Procedure Note: Patient Name: Loida Roque : [id number] MR#: [id number] Case Date: 08/30/2019 Heater Engineer Helper: Surgeon(s) and Role: * Jessee Malone MD - Primary * Luis Tatum PA - Fellow Preoperative diagnosis: ?CAD Postoperative diagnosis: * CAD * Procedure(s) performed: [facility] Coronary angio Access: Right radial A [...] for further details. JOCY Montaño 08/30/2019 Pager [phone] * Plan of Care - Efrain Verma [...] PM EST Office Visit Cardiology at [address] [place] [phone] Jaspreet Kinsey MD [facility] [place] [address] documented as of this encounter [...] (FVC >70%) Zoe Morocho MD Natalia Urbina ECONOMETRICIAN PFT ORDERABLES * EKG 12 Lead (08/31/2019 7:05 AM EDT) Ventricular rate 51 BPM MUSE SYSTEM Atrial Rate 51 BPM MUSE SYSTEM P-R Interval 186 ms MUSE SYSTEM QRS Duration 82 ms MUSE SYSTEM Q-T Interval 546 ms MUSE SYSTEM QTC Calculated (Bezet) 503 ms MUSE SYSTEM Calculated P Towanda 18 degrees MUSE SYSTEM Calculated R Tow[place] 52 degrees MUSE SYSTEM Calculated T Towanda 13 degrees MUSE SYSTEM INTERPRETATION Sinus bradycardia [...] LABORATORY Neutrophil Absolute 2.73 1.70 - 6.10 x10(3)/[facility] LABORATORY Lymph % 34.8 % [facility] Lymphocytes Abs 2.1 0.9 - 3.2 x10(3)/[facility] LABORATORY Monocyte % 10.1 % [facility] Monocyte Abs 0.6 0.3 - 0.9 x10(3)/[facility] LABORATORY Eos % 8.9 % [facility] Eosinophils Abs 0.5(H) 0.0 - 0.4 x10(3)/[facility] LABORATORY Basophil % 0.8 % [facility] Baso Absolute 0.0 0.0 - 0.1 x10(3)/[facility] LABORATORY Immature Gran % 0.20 % [facility] Comment: Immature granulocytes(IG's)percentage and absolute count will include metamyelocytes, myelocytes, and promyelocytes. Blood smears from CBCs yielding IG's will be scanned manually for concordance. If this scan disagrees with the automated IG or if promyelocytes are noted, a manual differential will be performed. Immature Gran Absolute 0.01 0.00 - 0.04 x10(3)/[facility] LABORATORY Blood specimen (specimen) 08/31/2019 4:12 AM EDT 08/31/2019 4:29 AM EDT Narrative Resulting Agency Comment Spec In Lab [place] [facility] HEMATOLOGY ORDERABLE S [facility] [place] [address] * (ABNORMAL) Hemogram (08/31/2019 4:12 AM EDT) [facility] White Blood Cell 6.0 4.0 - 9.5 x10(3)/[facility] LABORATORY Red Blood Cell 5.08 4.00 - 5.21 x10(6)/mc L [facility] Hemoglobin 15.7(H) 11.7 - 15.5 [...] Platelet Volume 11.4 7.6 - 12.9 fL [facility] NRBC% auto 0.0 % [facility] NRBC Absolute 0.000 0.000 - 0.000 x10(3)/mc L [facility] Blood specimen (specimen) 08/31/2019 4:12 AM EDT 08/31/2019 4:29 AM EDT Narrative Resulting Agency Comment Spec In Lab [place] [facility] HEMATOLOGY ORDERABLE S Performing Organization Address City/[facility]/ZIP Co de Phone Number [facility] [place] [address] * Magnesium (08/31/2019 4:12 AM EDT) Magnesium 0.92 0.69 - 1.07 mmol/L [facility] Blood specimen (specimen) 08/31/2019 4:12 AM EDT 08/31/2019 4:29 AM EDT Narrative Resulting Agency Comment Spec In Lab Manish Benitez MD CHEMISTRY ORDERABL ES Performing Organization Address City/[facility]/ZIP Co de Phone Number [facility] [place] [address] * (ABNORMAL) BMP w/fasting Glucose (08/31/2019 4:12 [...] of Diabetes Mellitus, Position Statement from the [employer] Diabetes Association. ??Diabetes Care, Volume 33, Supplement [...] of body mass or the acutely ill. http://[employer]/DHMCnkf eGFR 85 >=60 mL/min/1. 73 m?? [facility] Comment: The eGFR was calculated using the CKD-EPI equation. As with all creatinine based estimates of kidney function, eGFR values calculated with the CKD-EPI equation are not accurate in patients with acute kidney failure, extremes of body mass or the acutely ill. http://[employer]/DHMCnkf Blood specimen (specimen) 08/31/2019 4:12 AM EDT 08/31/2019 4:29 AM EDT Narrative Resulting Agency Comment Spec In Lab Manish Benitez MD CHEMISTRY ORDERABL ES Performing Organization Address City/State/[facility] Co de Phone Number [facility] [place] [address] * CARDIAC CATHETERIZATION (08/30/2019 2:40 PM EDT) Anatomical Region Laterality Modality Other Narrative 08/30/2019 2:59 PM EDT ?[facility] ? Cardiac Catheterization/Intervention Report ? Patient Name: Neisha, Loida ? Procedure Date: 08/30/2019 ? A #: [id number] ? Primary Physician: Kira, Jessee T ? Case #: [id number] ? File Name: [id number] ? Catheterization Order Number: [id number] ? [facility] ? Final Report [place], [place] ? Patient Name: ? Loida Neisha ? ID#: ?[id number] ? : ?1970 ? Procedure Date: ? [...] was Urgent. 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 The [facility] clinical frailtyscale is 2: Well. Diagnostic Tests: Prior Coronary Angiography: LV ejection fraction within 6 months is 65%. Medications Prior to Procedure: Aspirin. Indications for Diagnostic Cath: The priority of the diagnostic procedure was Urgent. The indicationfor the laborer prestressed concrete visit is ACS less than or equal to 24 hrs. Chest pain symptom assessment was: Typical Angina. Technique: A 6 SLFr sheath was inserted in the right radial artery utilizingthe Seldinger technique. The left coronary artery was injected utilizinga 5Fr EBU 3.0 catheter. A 5Fr VERONICA RADIAL catheter was used to injectthe right coronary artery. Left ventricular pressure was performed witha 5Fr VERNOICA RADIAL catheter. A total of 100cc of [...] ?NEISHA LOIDA ?(Age): 1970(49y) Med Rec#: ? [id number] ?Sex: ?F ? Site Loc: ? [facility] ?Ht / Wt: ??163(cm)/94(kg) Pt. Loc: ?Adult Floor ? BSA: ?1.99 Study Date: ?? 08/30/2019 ?Pt. Type: Inpatient Tape: ? Referring: POOJA IYER J Reading: Jose Chambers ([id number]) Food And Drug Research Scientist: Jaspreet Oneil RDCS Interpreting Fellow: Poncho Yates ([id number]) Diagnosis: *Non-ST elevation (NSTEMI) myocardial infarction (I21.4) [...] Vmax ?0.35 ? m/sec ? MV deceleration [id number] ?msec ? MV A-wave Vmax ?0.25 ? [...] ? Mid-Inferior ?Normal ? Mid-Inferoseptal ?Normal ? [place]-Septal ? Normal ? [place]-Anterior ? Normal ? [place]-Lateral ?Normal ? [place]-Inferior ? Normal ? [place]-Tip ?Normal ? This report has been electronically signed by: Jose Chambers MD ? 08/30/2019 14:21:57 Images reviewed and interpretation verified [facility] Cardiac Ultrasound Laboratory Procedure Note Jose Chambers MD - 08/30/2019 Procedure: Transthoracic Echocardiogram Patient: NEISHA VÁSQUEZ(Age): 1970(49y) Med Rec#: [id number] Sex: F Site Loc: [facility] Ht / Wt: 163(cm)/94(kg) Pt. Loc: Adult Floor BSA: 1.99 Study Date: 08/30/2019 Pt. Type: Inpatient Tape: Referring: POOJA IYER J Reading: Jose Chambers ([id number]) Food And Drug Research Scientist: Jaspreet Oneil [facility] Interpreting Fellow: Poncho Yates ([id number]) Diagnosis: *Non-ST elevation (NSTEMI) myocardial infarction (I21.4) [...] MV E-wave Vmax 0.35 m/sec MV deceleration [id number] msec MV A-wave Vmax 0.25 m/sec MV [...] Normal Mid-Posterolateral Normal Mid-Inferior Normal Mid-Inferoseptal Normal [place]-Septal Normal [place]-Anterior Normal [place]-Lateral Normal [place]-Inferior Normal [place]-Tip Normal This report has been electronically signed by: Jose Chambers MD 08/30/2019 14:21:57 Images reviewed and interpretation verified [facility] Cardiac Ultrasound Laboratory Manish Benitez MD ECHO ORDERABLES * EKG 12 Lead (08/30/2019 10:28 AM EDT) Ventricular rate 52 BPM MUSE SYSTEM Atrial Rate 52 BPM MUSE SYSTEM P-R Interval 162 ms MUSE SYSTEM QRS Duration 84 ms MUSE SYSTEM Q-T Interval 536 ms MUSE SYSTEM QTC Calculated (Bezet) 498 ms MUSE SYSTEM Calculated P Towanda -9 degrees MUSE SYSTEM Calculated R [place] 43 degrees MUSE SYSTEM Calculated T [place] -27 degrees MUSE SYSTEM INTERPRETATION Sinus bradycardia [...] 2:53 AM EDT) UF Heparin 0.44 IU/mL [facility] [...] MD HEMATOLOGY ORDERAB LES Performing Organization Address City/State/[facility] Co de Phone Number [facility] [place] [address] * (ABNORMAL) Differential, Automated (08/30/2019 2:53 AM EDT) Neutrophil % 52.4 % [facility] Neutrophil Absolute 3.85 1.70 - 6.10 x10(3)/mc L [facility] Lymph % 29.3 % [facility] Lymphocytes Abs 2.2 0.9 - 3.2 x10(3)/mc L [facility] Monocyte % 9.1 % [facility] Monocyte Abs 0.7 0.3 - 0.9 x10(3)/mc L [facility] Eos % 8.6 % [facility] Eosinophils Abs 0.6(H) 0.0 - 0.4 x10(3)/mc L [facility] Basophil % 0.5 % [facility]DRA HEMATOLOGY ORDERABLE S [facility] [place] [address] * (ABNORMAL) Hemogram (08/30/2019 2:53 AM EDT) White Blood Cell 7.4 4.0 - 9.5 x10(3)/[facility] LABORATORY Red Blood Cell 4.84 4.00 - 5.21 x10(6)/[facility] LABORATORY Hemoglobin 14.8 11.7 - 15.5 gm/dL [facility] Hematocrit 44.8 35.7 - 45.8 % [facility] Mean Cell Volume 92.6 82.6 - 94.4 [facility] LABORATORY Mean Cell Hemoglobin 30.6 27.1 - 32.0 pg [facility] Mean Cell Hemoglobin Concentration 33.0 31.7 - 35.0 gm/dL [facility] Platelet 272 145 - 357 x10(3)/[facility] LABORATORY RDW Standard Deviation 46.2(H) 37.0 - 46.0 [facility] LABORATORY RDW coefficient of variation 13.5 11.5 - 14.1 % [facility] Mean Platelet Volume 10.9 7.6 - 12.9 [facility] LABORATORY NRBC% auto 0.0 % [facility] NRBC Absolute 0.000 0.000 - 0.000 x10(3)/ L [facility] Blood specimen (specimen) 08/30/2019 2:53 AM EDT 08/30/2019 3:01 AM EDT Narrative Resulting Agency Comment Spec In Lab [place] [facility] HEMATOLOGY ORDERABLE S Performing Organization Address [facility] Co de Phone Number [facility] [place] [address] * Magnesium (08/30/2019 2:53 AM EDT) Magnesium 0.90 0.69 - 1.07 mmol/L [facility] Blood specimen (specimen) 08/30/2019 2:53 AM EDT 08/30/2019 3:01 AM EDT Narrative Resulting Agency Comment Spec In Lab Manish Benitez MD CHEMISTRY ORDERABL ES Performing Organization Address [facility] de Phone Number [facility] [place] [address] * (ABNORMAL) BMP w/fasting Glucose (08/30/2019 2:53 [...] of Diabetes Mellitus, Position Statement from the [place] Diabetes Association. ??Diabetes Care, Volume 33, Supplement [...] of body mass or the acutely ill. http://[employer]/[facility]Ankf eGFR 69 >=60 mL/min/1. 73 m?? [facility] Comment: The eGFR was calculated using the CKD-EPI equation. As with all creatinine based estimates of kidney function, eGFR values calculated with the CKD-EPI equation are not accurate in patients with acute kidney failure, extremes of body mass or the acutely ill. http://[employer]/[facility]kf Blood specimen (specimen) 08/30/2019 2:53 AM EDT 08/30/2019 3:01 AM EDT Narrative Resulting Agency Comment Spec In Lab Manish Benitez MD CHEMISTRY ORDERABL ES [facility] [place] [address] * Triglyceride (08/30/2019 2:53 AM EDT) Triglyceride 203 mg/dL [facility] Comment: Average Risk/Lower Risk: <150 mg/dL Borderline High Risk: 150-199 mg/dL High Risk: 200-499 mg/dL Very High Risk: >zh=162 mg/dL Blood specimen (specimen) 08/30/2019 2:53 AM EDT 08/30/2019 3:01 AM EDT Narrative Resulting Agency Comment Spec In Lab Manish Benitez MD CHEMISTRY ORDERABL ES [facility] [place] [address] * HDL/Cholesterol Profile (08/30/2019 2:53 AM EDT) Cholesterol, Total 220 mg/dL [facility] Comment: Lower Risk: <200 mg/dL Average Risk: 200-239 mg/dL Higher Risk: >gl=365 mg/dL HDL Cholesterol 34 mg/dL [facility] [...] greater than or equal to 190 mg/dL. http://[employer].com/UKD-UME-Xbmkeoybe Measure LDL if Total Cholesterol minus HDL Cholesterol is greater than 220 mg/dL. Adults aged 40-75 with LDL 70-189 mg/dL should have their 10 year ASCVD risk estimated with the ACC/AHA ASCVD risk project estimator http://tools.acc.org/KDKAK-Qbro-Fezoimnal/ Statin should be discussed if risk greater [...] CHEMISTRY ORDERABL ES Performing Organization Address [facility] de Phone Number [facility] [place] [address] * LDL Cholesterol, Direct (08/30/2019 2:53 AM EDT) Pathologist [facility] LDL Cholesterol, Direct 165 mg/dL [facility] Comment: Lowest Risk: <100 mg/dL Lower Risk: 100-129 mg/dL Borderline High Risk: 130-159 mg/dL High Risk: 160-189 mg/dL Very High Risk: >is=351 mg/dL Blood specimen (specimen) 08/30/2019 2:53 AM EDT 08/30/2019 3:01 AM EDT Narrative Resulting Agency Comment Spec In Lab Manish Benitez MD CHEMISTRY ORDERABL ES Performing Organization Address [facility] de Phone Number [facility] [place] [address] * Hemoglobin A1c (08/30/2019 2:53 AM EDT) Pathologist [facility] Hemoglobin A1c 5.4 4.3 - 5.6 % [...] Mellitus, Diabetes Care 2013; 36: Suppl. 1, F47-38 Estimated Average Glucose 108 mg/dL [facility] [...] into estimated average glucose values. ??Diabetes Care 2008:31(8):4207-0454. Blood specimen (specimen) 08/30/2019 2:53 AM EDT 08/30/2019 3:01 AM EDT Narrative Resulting Agency Comment Spec In Lab Manish Benitez MD CHEMISTRY ORDERABL ES Performing Organization Address [facility] de Phone Number [facility] [place] [phone] * CK (08/30/2019 2:53 AM EDT) Creatine Kinase 82 0 - 160 unit/L [facility] Blood specimen (specimen) 08/30/2019 2:53 AM EDT 08/30/2019 3:01 AM EDT Narrative Resulting Agency Comment Spec In Lab Manish Benitez MD CHEMISTRY ORDERABL ES Performing Organization Address [facility] de Phone Number [facility] [place] [phone] * Troponin (08/30/2019 2:53 AM EDT) Troponin-T [...] meets the diagnosis for a myocardial infarction (MD). Detection of a rise and/or fall of cTnT, with at least one value greater than the 99th percentile (> or = 0.01) and with at least one of the following ?? Symptoms of ischemia ?? New or presumed new significant XH-atwaoul-E wave (ST-T) changes or new left bundle [...] additional sample may be indicated. Reference: Third Hobgood Definition of Myocardial Infarction. Journal of the [place] College of Cardiology 2012;60:1581-98 Blood specimen (specimen) 08/30/2019 2:53 AM EDT 08/30/2019 3:01 AM EDT Narrative Resulting Agency Comment Spec In Lab Manish Benitez MD CHEMISTRY ORDERABL ES Performing Organization Address City/State/[facility] Co de Phone Number [facility] [place] [address] * (ABNORMAL) Differential, Automated (08/29/2019 8:30 PM EDT) Neutrophil % 56.5 % [facility] Neutrophil Absolute 3.58 1.70 - 6.10 x10(3)/mc L [facility] Lymph % 25.9 % [facility] Lymphocytes Abs 1.6 0.9 - 3.2 x10(3)/mc L [facility] Monocyte % 8.8 % [facility] Monocyte Abs 0.6 0.3 - 0.9 x10(3)/mc L [facility] [facility] Eos % 7.7 % [facility] Eosinophils Abs 0.5(H) 0.0 - 0.4 x10(3)/[facility] Basophil % 0.8 % [facility] Baso Absolute 0.0 0.0 - 0.1 x10(3)/[facility]OR[facility]ORY Immature Gran % 0.30 % [facility] Comment: Immature granulocytes(IG's)percentage and absolute count will include metamyelocytes, myelocytes, and promyelocytes. Blood smears from CBCs yielding IG's will be scanned manually for concordance. If this scan disagrees with the automated IG or if promyelocytes are noted, a manual differential will be performed. Immature Gran Absolute 0.02 0.00 - 0.04 x10(3)/[facility] Blood specimen (specimen) 08/29/2019 8:30 PM EDT 08/29/2019 9:11 PM EDT Narrative Resulting Agency Comment Spec In Lab [place] SANDRA HEMATOLOGY ORDERABLE S [facility] [place] [address] * (ABNORMAL) Hemogram (08/29/2019 8:30 PM EDT) White Blood Cell 6.3 4.0 - 9.5 x10(3)/[facility] LABORATORY Red Blood Cell 5.03 4.00 - 5.21 x10(6)/[facility] Hemoglobin 15.3 11.7 - [...] Standard Deviation 46.4(H) 37.0 - 46.0 fL [facility] RDW coefficient of variation 13.6 11.5 - 14.1 % [facility] Mean Platelet Volume 11.3 7.6 - 12.9 fL [facility] NRBC% auto 0.0 % [facility] NRBC Absolute 0.000 0.000 - 0.000 x10(3)/mc L [facility] Blood specimen (specimen) 08/29/2019 8:30 PM EDT 08/29/2019 9:11 PM EDT Narrative Resulting Agency Comment Spec In Lab [place] SANDRA HEMATOLOGY ORDERABLE S [facility] [place] [address] * Heparin (unfractionated) Level (08/29/2019 8:30 PM [...] MD HEMATOLOGY ORDERAB LES Performing Organization Address [facility]/ZIP Co de Phone Number [facility] [place] [address] * CK (08/29/2019 8:30 PM EDT) Creatine Kinase 94 0 - 160 unit/L [facility] Blood specimen (specimen) 08/29/2019 8:30 PM EDT 08/29/2019 9:11 PM EDT Narrative Resulting Agency Comment Spec In Lab Manish Benitez MD CHEMISTRY ORDERABL ES Performing Organization Address [facility] Co de Phone Number [facility] [place] [address] * Troponin (08/29/2019 8:30 PM EDT) Troponin-T [...] meets the diagnosis for a myocardial infarction (MD). Detection of a rise and/or fall of cTnT, with at least one value greater than the 99th percentile (> or = 0.01) and with at least one of the following ?? Symptoms of ischemia ?? New or presumed new significant TD-csivean-M wave (ST-T) changes or new left bundle [...] additional sample may be indicated. Reference: Third Hobgood Definition of Myocardial Infarction. Journal of the [employer] College of Cardiology 2012;60:1581-98 Blood specimen (specimen) 08/29/2019 8:30 PM EDT 08/29/2019 9:11 PM EDT Narrative Resulting Agency Comment Spec In Lab Manish Benitez MD CHEMISTRY ORDERABL ES Performing Organization Address [facility] Co de Phone Number [facility] [place] [address] * EKG 12 Lead (08/29/2019 4:19 PM EDT) Ventricular rate 67 BPM MUSE SYSTEM Atrial Rate 67 BPM MUSE SYSTEM P-R Interval 164 ms MUSE SYSTEM QRS Duration 80 ms MUSE SYSTEM Q-T Interval 478 ms MUSE SYSTEM QTC Calculated (Bezet) 505 ms MUSE SYSTEM Calculated P [place] 34 degrees MUSE SYSTEM Calculated R [place] 30 degrees MUSE SYSTEM Calculated T [place] -29 degrees MUSE SYSTEM INTERPRETATION Demand pacemaker; [...] Benitez MD ECG ORDERABLES Performing Organization Address [facility] Co de Phone Number MUSE SYSTEM * (ABNORMAL) Differential, Automated (08/29/2019 3:10 PM EDT) Neutrophil % 58.3 % [facility] Neutrophil Absolute 3.79 1.70 - 6.10 x10(3)/mc L [facility] Lymph % 22.7 % [facility] Lymphocytes Abs 1.5 0.9 - 3.2 x10(3)/mc L [facility] Monocyte % 10.3 % [facility] Monocyte Abs 0.7 0.3 - 0.9 x10(3)/mc L [facility] Eos % 7.8 % [facility] Eosinophils Abs 0.5(H) 0.0 - 0.4 x10(3)/[facility] Basophil % 0.6 % [facility] Baso Absolute 0.0 0.0 - 0.1 x10(3)/[facility] Immature Gran % 0.30 % [facility] Comment: Immature granulocytes(IG's)percentage and absolute count will include metamyelocytes, myelocytes, and promyelocytes. Blood smears from CBCs yielding IG's will be scanned manually for concordance. If this scan disagrees with the automated IG or if promyelocytes are noted, a manual differential will be performed. Immature Gran Absolute 0.02 0.00 - 0.04 x10(3)/[facility] Blood specimen (specimen) 08/29/2019 3:10 PM EDT 08/29/2019 3:50 PM EDT Narrative Resulting Agency Comment Spec In Lab [place] SANDRA HEMATOLOGY ORDERABLE S [facility] [place] [address] * (ABNORMAL) Hemogram (08/29/2019 3:10 PM EDT) White Blood Cell 6.5 4.0 - 9.5 x10(3)/[facility] Red Blood Cell 4.69 4.00 - 5.21 x10(6)/[facility] Hemoglobin 14.1 11.7 - 15.5 gm/dL [facility] Hematocrit 43.8 35.7 - 45.8 % [facility] Mean Cell Volume 93.4 82.6 - 94.4 fL [facility] Mean Cell Hemoglobin 30.1 27.1 - 32.0 pg [facility] Mean Cell Hemoglobin Concentration 32.2 31.7 - 35.0 gm/dL [facility] Platelet 235 145 - 357 x10(3)/mc L [facility] RDW Standard Deviation 47.2(H) 37.0 - 46.0 fL [facility] RDW coefficient of variation 13.7 11.5 - 14.1 % [facility] Mean Platelet Volume 11.5 7.6 - 12.9 fL [facility] NRBC% auto 0.0 % [facility] NRBC Absolute 0.000 0.000 - 0.000 x10(3)/mc L [facility] Blood specimen (specimen) 08/29/2019 3:10 PM EDT 08/29/2019 3:50 PM EDT Narrative Resulting Agency Comment Spec In Lab [place] SANDRA HEMATOLOGY ORDERABLE S Performing Organization Address [facility] Co de Phone Number [facility] [place] [address] * Hepatic Function Panel (08/29/2019 3:10 PM [...] MD CHEMISTRY ORDERABL ES Performing Organization Address [facility]/ZIP Co de Phone Number [facility] [place] [address] * TSH (08/29/2019 3:10 PM EDT) Thyroid Stimulating Hormone 1.87 0.27 - 4.20 mcIU/mL [facility] Blood specimen (specimen) 08/29/2019 3:10 PM EDT 08/29/2019 3:52 PM EDT Narrative Resulting Agency Comment Spec In Lab Manish Benitez MD CHEMISTRY ORDERABL ES Performing Organization Address [facility]/ZIP Co de Phone Number [facility] [place] [address] * (ABNORMAL) pro-Brain Natriuretic Peptide (08/29/2019 3:10 PM EDT) Pathologist [facility] NT-proBNP 1,242(H) <=125 pg/mL [facility] Blood specimen (specimen) 08/29/2019 3:10 PM EDT 08/29/2019 3:52 PM EDT Narrative Resulting Agency Comment Spec In Lab Manish Benitez MD CHEMISTRY ORDERABL ES Performing Organization Address [facility] Co de Phone Number [facility] [place] [address] * CK (08/29/2019 3:10 PM EDT) Creatine Kinase 96 0 - 160 unit/L [facility] Blood specimen (specimen) 08/29/2019 3:10 PM EDT 08/29/2019 3:52 PM EDT Narrative Resulting Agency Comment Spec In Lab Manish Benitez MD CHEMISTRY ORDERABL ES Performing Organization Address [facility] Co de Phone Number [facility] [place] [address] * Troponin (08/29/2019 3:10 PM EDT) Troponin-T [...] meets the diagnosis for a myocardial infarction (MD). Detection of a rise and/or fall of cTnT, with at least one value greater than the 99th percentile (> or = 0.01) and with at least one of the following ?? Symptoms of ischemia ?? New or presumed new significant SO-wz[place]-I wave (ST-T) changes or new left bundle [...] additional sample may be indicated. Reference: Third Hobgood Definition of Myocardial Infarction. Journal of the [employer] College of Cardiology 2012;60:1581-98 Blood specimen (specimen) 08/29/2019 3:10 PM EDT 08/29/2019 3:52 PM EDT Narrative Resulting Agency Comment Spec In Lab Manish Benitez MD CHEMISTRY ORDERABL ES [facility] [place] [address] * (ABNORMAL) APTT (08/29/2019 3:10 PM EDT) [...] MD HEMATOLOGY ORDERAB LES Performing Organization Address [facility] Co de Phone Number [facility] [place] [address] * (ABNORMAL) Prothrombin Time (08/29/2019 3:10 PM [...] MD HEMATOLOGY ORDERAB LES Performing Organization Address [facility] Co de Phone Number [facility] [place] [address] * (ABNORMAL) Basic Metabolic Panel (non-fasting) (08/29/2019 [...] of body mass or the acutely ill. http://[employer]f eGFR 94 >=60 mL/min/1. 73 m?? [facility] Comment: The eGFR was calculated using the CKD-EPI equation. As with all creatinine based estimates of kidney function, eGFR values calculated with the CKD-EPI equation are not accurate in patients with acute kidney failure, extremes of body mass or the acutely ill. http://[employer]/[facility] TULSAnkf Blood specimen (specimen) 08/29/2019 3:10 PM EDT 08/29/2019 3:52 PM EDT Narrative Resulting Agency Comment Spec In Lab Manish Benitez MD CHEMISTRY ORDERABL ES [facility] [place] [address] documented in this encounter Visit Diagnoses Diagnosis [...] - Reason: Transfer to a Procedural area)1530 ([facility] Unhold - Provider: Admin Adt) atorvastatin (Lipitor) tablet 80 mg (CANCELED) 80 mg, Oral, EVERY EVENING, First dose on Wed08/29/19 at 1715, Until Discontinued, Routine 1701 (Given - Provider: Mark Nick RN) 1357 (MAY Hold - Provider: Admin Adt - Reason: Transfer to a Procedural area)1530 ([facility] Unhold - Provider: Admin Adt) clopidogreL (Plavix) tablet 75 mg (CANCELED) 75 mg, Oral, DAILY, First dose on Wed08/30/19 at 0900, Until Discontinued, Routine 0842 (Given - Provider: Mark Nick RN)1357 ([facility] Hold - Provider: Admin Adt - Reason: Transfer to a Procedural area)1530 ([facility] Unhold - Provider: Admin Adt) DULoxetine DR (Cymbalta) capsule 60 mg 60 mg, Oral, NIGHTLY, First dose on Wed08/29/19 at 2100, Until Discontinued, Routine 2047 (Given - Provider: Efrain Verma RN) 1357 ([facility] Hold - Provider: Admin Adt - Reason: Transfer to a Procedural area)1530 ([facility] Unhold - Provider: Admin Adt)2029 [...] 0842 (Given - Provider: Mark Nick RN)135 ([facility] Hold - Provider: Admin Adt - Reason: Transfer to a Procedural area)153 ([facility] Unhold - Provider: Admin Adt)2029 [...] (Given - Provider: Efrain Verma RN) 1357 ([facility] Hold - Provider: Admin [...] - Reason: Transfer to a Procedural area)1530 ([facility] Unhold - Provider: Admin Adt) fentaNYL 50 [...] - Reason: Transfer to a Procedural area)1530 ([facility] Unhold - Provider: Admin Adt) perflutren protein-A [...] Wed08/31/19 at 2024, Sleep, insomnia, Routine 1357 ([facility] Hold - Provider: Admin Adt - Reason: Transfer to a Procedural area)1530 ([facility] Unhold - Provider: Admin [...] UA) documented in this encounter Care Teams Stripper And Taper Relationship Specialty Start Date End Date Tim Rogers DNP PCP - General Family Medicine 08/28/19 06/08/21 documented as of this encounter
--- OUTSIDE RECORDS SUMMARY | 2024-01-24 21:16 | XMS_ITS | Encounter Summary ---
Author Organization [facility] Address [address] [place] [address] Care Team Providers Care Beveling And Edging Machine Operator Name Role Phone Unknown, Provider Primary Care Provider Unava ilable Encounter Details Date Type Department Care Team (Late st Contact Info) Description 09/06/2020 Lab Requisition [facility] Pathology & Laboratory Medicine - [facility] [address], [place] [address] Outr Resulting Lab, Provider Social History Tobacco [...] MICROBIOLOGY - GENER AL ORDERABLES Final Result [facility] [address] [place] [address] * COVID-19 TESTING (09/05/2020 14:00 EDT) COVID-19 rt-PCR Result Negative Negative 09/07/2020 14:[address] [facility] Comment: This test has [...] developed and its performance characteristics determined by [facility]. It has not been cleared or approved [...] testing. This test is based on the [facility] COVID-19 Emergency Use Authorization (EUA) assay, with minor modification as defined by the FDA Performed on the [employer] 7 Flex RT-PCR System. Performing Lab [facility] 09/07/2020 14:[address] [facility] Swab 09/05/2020 14:0 0 EDT 09/06/2020 16:13 EDT us Provider Outr Resulting Lab MICROBIOLOGY - GENER AL ORDERABLES Final Result [facility] [address] [place] [address] documented in this encounter Visit Diagnoses Not on filedocumented in this encounter Care Teams Beveling And Edging Machine Operator Relationship Specialty Start Date End Date Unknown, Provider, PCP - General 01/28/10 documented as of this encounter
--- OUTSIDE RECORDS SUMMARY | 2024-01-24 21:16 | XMS_ITS | Encounter Summary ---
[place] [address] Care Team Providers Care Administrative Director Name Role Phone Tim Rogers DNP Primary Care Provider [phone] Encounter Details Date Type Department Care Team (Latest Contact Info) Description 08/01/2020 11:42 AM EDT - 08/01/2020 11:59 PM EDT Hospital [place] [id number] Dyspnea, unspecified type Discharge Disposition: Home Social [...] as needed. fluticasone propionate (FLONASE) 50 mcg/actuation [place], Suspension 1 spray by Each Nare route [...] PM EST Office Visit Cardiology at [address] [place] [address] Jaspreet Kinsey MD [facility] [place] [address] documented as of this encounter Procedures Procedure [...] / FVC LLN 69 % COMPAS PFT CXL25-12 Actual Pre-BD 3.14 L/s COMPAS PFT NJX01-69 Pre-BD % of Predicted 116 % COMPAS PFT ZFW92-24 Predicted 2.70 L/s COMPAS PFT BEL45-95 Pre-BD Z-Score 0.51 COMPAS PFT FVC Actual [...] PFT FEV1/FVC Post-BD Z-Score 1.94 COMPAS PFT ZCO77-93 Actual Post-BD 4.26 L/s COMPAS PFT CRO89-43 Post-BD % of Predicted 158 % COMPAS PFT QZZ29-43 Post-BD Z-Score 1.67 COMPAS PFT DLCO Hb [...] type documented in this encounter Care Teams Administrative Director Relationship Specialty Start Date End Date Tim Rogers DNP PCP - General Family Medicine 08/28/19 06/08/21 documented as of this encounter
--- OUTSIDE RECORDS SUMMARY | 2024-01-24 21:17 | XMS_ITS | Encounter Summary ---
Author Organization [facility] Address [address] [place] [address] Care Team Providers Care Corporate Logistics Manager Name Role Phone Unknown, Provider Primary Care Provider Unava ilable Encounter Details Date Type Department Care Team (Late st Contact Info) Description 08/28/2019 Lab Requisition [facility] Pathology & Laboratory Medicine - [facility] [address] [place], [place] [address] Outr Resulting Lab, Provider Social History Tobacco [...] MICROBIOLOGY - GENER AL ORDERABLES Final Result [facility] [address] [place] [address] * COVID-19 TESTING (08/28/2019 21:50 EDT) COVID-19 [...] history, and epidemiological information. Performed on the [employer] instrument Performing Lab [place] [facility] 08/29/2019 12:31 EDT [facility] Swab 08/28/2019 21:5 0 EDT 08/29/2019 8:30 EDT us Provider Outr Resulting Lab MICROBIOLOGY - GENER AL ORDERABLES Final Result [facility] [address] [place] [address] documented in this encounter Visit Diagnoses Not on filedocumented in this encounter Care Teams Corporate Logistics Manager Relationship Specialty Start Date End Date Unknown, Provider, PCP - General 01/28/10 documented as of this encounter
--- OUTSIDE RECORDS SUMMARY | 2024-01-24 21:17 | XMS_ITS | Encounter Summary ---
Author Organization [facility] Address [address] [place] [address] Care Team Providers Care Lumber Puller Name Role Phone Unknown, Provider Primary Care Provider Unava ilable Encounter Details Date Type Department Care Team (Late st Contact Info) Description 05/18/2020 Lab Requisition [facility] Pathology & Laboratory Medicine - [facility] [address] [place], [place] [address] Outr Resulting Lab, Provider Social History Tobacco [...] Negative 05/20/2020 11:35 EDT [facility] Comment: If acute HIV-1 infection is suspected in a high risk ??patient, submit plasma specimen for HIV-1 RNA quantitation test. Fourth Generation assay performed on the Siemens [employer]. Blood VENOUS BLOOD / Unknown 05/17/2020 14:00 EST 05/19/2020 16:27 EDT us Provider Outr Resulting Lab IMMUNOLOGY AND SEROL OGY ORDERABLES Final Result [facility] [address] [place] [address] documented in this encounter Visit Diagnoses Not on filedocumented in this encounter Care Teams Lumber Puller Relationship Specialty Start Date End Date Unknown, Provider, PCP - General 01/28/10 documented as of this encounter
--- OUTSIDE RECORDS SUMMARY | 2024-01-24 21:17 | XMS_ITS | Encounter Summary ---
Author Organization [facility] Address [address] [place] [address] Care Team Providers Care Clinical Specialist Name Role Phone Unavailable Primary Care Provider Unavailabl e Encounter Details Date Type Department Care Team (Late st Contact Info) Description 05/15/1999 Results Only [facility] conversion [address] [place] [address] Channing Brand MD [address] [place] [address] Social History Tobacco Use Types [...] ? LOIDA ROQUE ? Accession #: ? [id number] ? : ? 1970 (Age: 29) ??F [...] Final Resul t [facility] [address] [place] [address] documented in this encounter Visit Diagnoses Not on filedocumented in this encounter
--- OUTSIDE RECORDS SUMMARY | 2024-01-24 21:17 | XMS_ITS | Encounter Summary ---
Author Organization [facility] Address [address] [place] [address] Care Team Providers Care Registered Nurse Cardiac Telemetry Name Role Phone Unknown, Provider Primary Care Provider Unava ilable Encounter Details Date Type Department Care Team (Late st Contact Info) Description 05/18/2020 Lab Requisition [facility] Pathology & Laboratory Medicine - [address] [address] Outr Resulting Lab, Provider Social History Tobacco [...] C Antibody Negative Negative 05/20/2020 11:15 EDT [facility] Blood VENOUS BLOOD / Unknown 05/17/2020 14:00 EST 05/19/2020 16:37 EDT us Provider Outr Resulting Lab CHEMISTRY & BLOOD GA S ORDERABLES Final Result [facility] [address] [place] [address] * CELIAC DISEASE PANEL (05/17/2020 14:00 EST) Tissue Transglutaminase Antibody IGA <1.2 <4.0 U/mL 05/20/2020 13:21 EDT [facility] Comment: A negative result may be due to IgA deficiency and does not rule out celiac disease. ? Negative: ??<4.0 U/mL ? Weak Positive: ??4.0 - 10.0 U/mL ? Positive: ??>10.0 U/mL Results were obtained with the [employer] Medical TechnologiesA Lite R h-tTG IgA VAIBHAV assay on the [employer] (Inspect Manager)X. IgA 283 85 - 499 mg/dL 05/20/2020 13:21 EDT [facility] Celiac Disease Interpretation Negative Serology. Celiac disease unlikely. Approximately 10% of patients with celiac disease are seronegative. Patients who are already adhering to a gluten-free diet may also be seronegative. If celiac disease is highly clinically suspected, referral to gastroenterology for additional evaluation is recommended. 05/20/2020 13:21 EDT [facility] Blood VENOUS BLOOD / Unknown 05/17/2020 14:00 EST 05/19/2020 16:27 EDT us Provider Outr Resulting Lab IMMUNOLOGY AND SEROL OGY ORDERABLES Final Result Performing Organization Address [facility] Co de Phone Number [facility] [address] [place] [address] documented in this encounter Visit Diagnoses Not on filedocumented in this encounter Care Teams Registered Nurse Cardiac Telemetry Relationship Specialty Start Date End Date Unknown, Provider, PCP - General 01/28/10 documented as of this encounter
--- OUTSIDE RECORDS SUMMARY | 2024-01-24 21:17 | XMS_ITS | Encounter Summary ---
Author Organization [facility] Address [address] [place] [address] Care Team Providers Care Hair Spinner Name Role Phone Unavailable Primary Care Provider Unavailabl e Encounter Details Date Type Department Care Team (Late st Contact Info) Description 01/02/2000 Results Only [facility] [address] [place] [address] Channing Brand MD [address] [place] [address] Social History Tobacco Use Types [...] ? LOIDA ROQUE ? Accession #: ? [id number] : ? 1970 (Age: 29) ??F ?Collect [...] ORDERABLES Final Resul t [facility] [address] [place] [address] documented in this encounter Visit Diagnoses Not on filedocumented in this encounter
--- OUTSIDE RECORDS SUMMARY | 2024-01-24 21:17 | XMS_ITS | Encounter Summary ---
Author Organization [facility] Address [address] [place] [address] Care Team Providers Care Processing Operator Name Role Phone Unavailable Primary Care Provider Unavailabl e Encounter Details Date Type Department Care Team (Late st Contact Info) Description 01/23/2010 Results Only [facility] Laboratory Services - [facility] ([facility]) [address], [place] [id number] Kylee Vaca MD [address] [place] [address] Social History Tobacco Use Types [...] ? ROHAN, LOIDA ? Accession #: ? [id number] ? : ? 1970 (Age: 39) ??F ? Collect Date: ? 01/23/2010 ? Location: ? [facility] ? Receive Date: ? 01/24/2010 ? Provider: KYLEE VACA MD ? Copy to: DARWIN [facility] POLISHER ? Final Pathologic Diagnosis: ? Skin of [...] Final Resul t [facility] [address] [place] [address] documented in this encounter Visit Diagnoses Not on filedocumented in this encounter
--- OUTSIDE RECORDS SUMMARY | 2024-01-24 21:17 | XMS_ITS | Encounter Summary ---
Author Organization [facility] Address [address] [place] [address] Care Team Providers Care Complaints Coordinator Name Role Phone Unavailable Primary Care Provider Unavailabl e Encounter Details Date Type Department Care Team (Late st Contact Info) Description 01/19/2000 Results Only [facility] conversion [address] [place] [address] Channing Brand MD [address] [place] [address] Social History Tobacco Use Types [...] ? LOIDA ROQUE ? Accession #: ? [id number] ? : ? 1970 (Age: 29) ??F [...] reviewed and electronically signed by: Gerald Nino [facility] Report ??Date: 01/22/2000 16:44 By [...] a discernible squamocolumnar junction. BLOCK RHODES B1,B2 ?Lead Embedded Software Engineer section of anterior endomyometrium B3 ?Possible myomatous nodule from the anterior half of the specimen B4 ?Lead Embedded Software Engineer section of posterior endomyometrium B5 ?Lead Embedded Software Engineer section of posterior endo- and ectocervix B6 ?Anterior endo- and ectocervix (Dr. Garcia)/[facility] End of Report [facility] KNIGHT 01/19/2000 01/20/2000 14: 59 EST us Channing Brand MD PATHOLOGY ORDERABLES Final Resul t [facility] KNIGHT [address] [place] [address] documented in this encounter Visit Diagnoses Not on filedocumented in this encounter
--- OUTSIDE RECORDS SUMMARY | 2024-01-24 21:18 | XMS_ITS | Encounter Summary ---
Author Organization [facility] [place] [address] Care Team Providers Care Contamination Consultant Name Role Phone Polo Pearce Primary Care Provider [phone] Reason for Referral * Diagnostic Test (Routine) - Pending Review Specialty Diagnoses / Procedures Referred By Contac t Referred To Contact Cardiology Diagnoses Chest pain, unspecified type Procedures Nuclear Pharmacologic Stress Cardiology (PET CT Mobile) Porsha Mcdaniels MD [facility] [place] [address] [facility] [place] [address] Referral ID Status Reason Start Date Expiration Date Visits Requested Visits Authorized [id number] Pending Review Specialty Service Requested 07/29/2023 07/28/2024 1 1 Reason for Visit * Diagnostic Test (Routine) - Pending Review Specialty Diagnoses / Procedures Referred By Contac t Referred To Contact Cardiology Diagnoses Chest pain, unspecified type Procedures Nuclear Pharmacologic Stress Cardiology (PET CT Mobile) Porsha Mcdaniels MD [facility] [place] [address] [facility] [place] [address] Referral ID Status Reason Start Date Expiration Date Visits Requested Visits Authorized [id number] Pending Review Specialty Service Requested 07/29/2023 07/28/2024 1 1 Encounter Details Date Type Department Care Team (Latest Contact Info) Description 08/17/2023 11:53 AM EDT - 08/17/2023 11:59 PM EDT Hospital Encounter Non-Invasive [place] [id number] Porsha Mcdaniels MD [facility] [place] [address] Chest pain, unspecified type Discharge Disposition: Home [...] needed. fluticasone propionate (FLONASE) 50 mcg/actuation [place], Suspension 1 spray by Each Nare route [...] PM EST Office Visit Cardiology at [address] [place] [address] Jaspreet Kinsey MD [facility] [place] [address] documented as of this encounter Procedures Procedure Name Priority Date/Time Associated Diagnosis Comments NUCLEAR PHARMACOLOGIC STRESS CARDIOLOGY (PET CT MOBILE) Routine 08/17/2023 2:17 PM EDT Chest pain, unspecified type documented in this encounter Results * Nuclear Pharmacologic Stress Cardiology (PET CT Mobile) (08/17/2023 2:17 PM EDT) Anatomical Region Laterality Modality Other Porsha Mfcarlane MD CARDIAC SERVICES OR DERABLES documented in this encounter Visit Diagnoses Diagnosis Chest pain, unspecified type documented in this encounter Care Teams Contamination Consultant Relationship Specialty Start Date End Date Polo Pearce PA [address] [place] [address] PCP - General Internal Medicine 06/09/21 documented as of this encounter
--- OUTSIDE RECORDS SUMMARY | 2024-01-24 21:18 | XMS_ITS | Encounter Summary ---
Author Organization [facility] Address [facility] [place] [address] Care Team Providers Care Religious Education Teacher Name Role Phone Polo Pearce Primary Care Provider [phone] Encounter Details Date Type Department Care Team (Latest Contact Info) Description 08/17/2023 Travel Social History Tobacco Use Types Packs/Day Years Used Date Smoking Tobacco: Never Smokeless Tobacco: Never Alcohol Use Standard Drinks/Week Comments Never 0 (1 standard drink = 0.6 oz pur e alcohol) [facility] Utilities Answer Date Recorded In the past 12 months has th e electric, gas, oil, or water [employer] threatened to shut off services in your [...] PM EST Office Visit Cardiology at [address] [place] [address] Jaspreet Kinsey MD [facility] [place] [address] documented as of this encounter Visit Diagnoses Not on filedocumented in this encounter Care Teams Religious Education Teacher Relationship Specialty Start Date End Date Polo Pearce PA [address] [place] [address] PCP - General Internal Medicine 06/09/21 documented as of this encounter
--- OUTSIDE RECORDS SUMMARY | 2024-01-24 21:23 | XMS_ITS | Encounter Summary ---
Author Organization [facility] [place] [address] Care Team Providers Care Hotel Maintenance Technician Name Role Phone Polo Pearce Primary Care Provider [phone] Reason for Visit * Reason Comments Congestive Heart Failure HFpEF Atrial Fibrillation Encounter Details Date Type Department Care Team (Late st Contact Info) Description 11/17/2022 9:00 AM EDT Office Visit Cardiology at [address] [address] Jaspreet Kinsey MD [facility] [place] [address] Paroxysmal atrial fibrillation; Heart failure with preserved [...] In the interim, she was seen at [facility] vascular clinic and whilst having an episode [...] 30 DAYS fluticasone propionate (FLONASE) 50 mcg/actuation [place], Suspension 1 spray, Each Nare, DAILY gabapentin [...] PM EST Office Visit Cardiology at [address] [place] [phone] Jaspreet Kinsey MD [facility] [place] [address] documented as of this encounter Visit Diagnoses Diagnosis Paroxysmal atrial fibrillation Atrial fibrillation Heart failure with preserved ejection fraction, unspecified HF chronicity Pulmonary embolism without acute cor pulmonale, unspecified chronicity, unspecified pulmonary embolism type Chronic heart failure with preserved ejection fraction documented in this encounter Care Teams Hotel Maintenance Technician Relationship Specialty Start Date End Date Polo Pearce PA [address] [place] [address] PCP - General Internal Medicine 06/09/21 documented as of this encounter
--- OUTSIDE RECORDS SUMMARY | 2024-01-24 21:23 | XMS_ITS | Encounter Summary ---
[place] [address] Care Team Providers Care Felt Strip Finisher Name Role Phone Polo Pearce Primary Care Provider [phone] Reason for Visit * Reason Onset Date Comments Follow-up 03/18/2022 Encounter Details Date Type Department Care Team (Late st Contact Info) Description 03/18/2022 Telephone Cardiology at [address] [address] Mary Motta, RN Follow-up Social [...] Dr. Tovar Pt saw Dr. Kinsey (primary weatherization administrator on 03/16) where pt was known to [...] PM EST Office Visit Cardiology at [address] [place] [phone] Jaspreet Kinsey MD [facility] [place] [address] documented as of this encounter Visit Diagnoses Not on filedocumented in this encounter Care Teams Felt Strip Finisher Relationship Specialty Start Date End Date Polo Pearce PA [address] [place] [address] PCP - General Internal Medicine 06/09/21 documented as of this encounter
[2024-01-24] MEDS: Potassium Chloride 20 MEQ TABCR 40 MEQ PO (22:23)
[2024-01-24] MEDS: Topiramate 25 MG TAB 100 MG PO (22:23)
[2024-01-24] MEDS: Gabapentin 600 MG TAB PO (22:23)
[2024-01-24] MEDS: Normal Saline Flush 10 ML SYR IVP (22:24)
[2024-01-24] MEDS: rOPINIRole 1 MG TAB PO (22:32)
[2024-01-24] MEDS: Atorvastatin 40 MG TAB PO (22:33)
[2024-01-24 23:31] LABS: Troponin I 309 ng/L (<or=51)
[2024-01-24 23:44] LABS: PTT Activated > 155.0 sec (23.6-32.8)
[2024-01-25] VITALS (7 sets, daily range): BP systolic 101–131; BP diastolic 55–70; PULSE 53–62; RESP 16–19; TEMP 36–37.6; O2SAT 94–100
[2024-01-25] MEDS: Normal Saline Flush 10 ML SYR IVP ×3 (01:00→21:04)
[2024-01-25 07:11] LABS: Abs Immature Grans 0.01 10^3/uL (0.0-0.06); Absolute Basophil Count 0.03 10^3/uL (0.0-0.2); Absolute Eosinophil Count 0.31 10^3/uL (0.0-0.7); Absolute Lymphocyte Count 1.78 10^3/uL (1.2-3.4); Absolute Monocyte Count 0.51 10^3/uL (0.1-0.8); Absolute Neutrophil Count 3.13 10^3/uL (1.2-6.7); Basophils % 0.5 %; Eosinophils % 5.4 %; HCT 45.2 % (36.0-46.0); HGB 15.2 g/dL (11.2-15.7); Immature Grans % 0.2 %; Lymphocytes % 30.8 %; MCH 31.7 pg (27.0-33.0); MCHC 33.6 % (32.0-36.0); MCV 94 fL (80-95); MPV 10.7 fL (8.0-11.0); Monocytes % 8.8 %; Neutrophils % 54.3 %; Platelet Count 219 10^3/uL (130-400); RDW 13.2 % (11.7-14.6); RDW-SD 46.3 fL; WBC 5.77 10^3/uL (4.4-10.8)
[2024-01-25 07:22] LABS: PTT Activated 45.8 sec (23.6-32.8)
--- NOTE | 2024-01-25 07:29 | NUR.NOTE ---
Nursing Note: Heparin rate confirmed at 700 units/hr (7ML/hr) on am handoff from ERWIN cha, to this RN
[2024-01-25 07:47] LABS: ALT 24 U/L (14-59); AST 13 U/L (15-37); Albumin 3.8 g/dL (3.4-5.0); Alkaline Phosphatase 66 U/L (46-116); Anion Gap 9.2 mmol/L (3-11); BUN 25 mg/dL (7-18); Bilirubin, Total 0.36 mg/dL (0.2-1.0); CO2 22.8 mmol/L (21.0-32.0); CREATININE 1.4 mg/dL (0.55-1.02); Calcium 9.2 mg/dL (8.5-10.1); Chloride 109 mmol/L (98-107); Estimated GFR 44.71 (mL/min/1.73m2); Glucose 95 mg/dL (74-106); Potassium 4.2 mmol/L (3.5-5.1); Sodium 141 mmol/L (136-145); Total Protein 7.5 g/dL (6.4-8.2)
[2024-01-25 07:48] LABS: Troponin I 339 ng/L (<or=51)
[2024-01-25] MEDS: Metoprolol 12.5 MG TAB PO (07:59)
[2024-01-25] MEDS: Empaglifozin 10 MG TAB PO (08:00)
[2024-01-25] MEDS: DULoxetine 30 MG CAP 60 MG PO (08:00)
[2024-01-25] MEDS: Omeprazole 20 MG CAPCR PO (08:00)
[2024-01-25] MEDS: Spironolactone 25 MG TAB PO (08:00)
[2024-01-25] MEDS: Potassium Chloride 20 MEQ TABCR 40 MEQ PO ×2 (08:00→21:02)
[2024-01-25] MEDS: Torsemide 20 MG TAB PO (08:00)
--- NOTE | 2024-01-25 09:33 | PDOC.CMIN ---
Date of service: 01/25/24 Time of Service: 09:33 Care Management Initial Assmt Initial Assessment Reason for Hospitalization: CATIE and chest pain Functional Status/Living Situation Patient Presentation: Indira was sitting up in bed when CM met with her. She was polite and engaged well with CM. Indira was admitted with chest pain, although she did state she feels much better today. This has been an ongoing issue for her for several months and has been extensively investigated, including with a cardiac cath at [facility] this past spring. Indira lives in a single family home in [place] with her Boby. Marv has MS and is unable to work. Indira explained that there is someone with him all of the time but the caregivers consist of family and friends. They are over income for the [facility] programs that could provide caregivers. They have 2 children who live locally. Indira has worked at [employer] for over 30 years. She is independent at baseline and does not receive any community services. Town of Residence: [place] Resides with: Spouse (Boby) Natural Supports: family Employment Status: Employed ([employer]) Instrumental Activities of Daily Living (ADLs): Independent Physical Functioning/Mobility Assistive Device: none Advance Directives Advance Directives: Do you have an Advance Directive: N 09/21/22 09:46 AD On File at [facility]: N 09/21/22 09:46 Date Asked 01/24/24 01/24/24 12:25 AD Date Reviewed COLST On File at [facility] COLST Date Scanned Code Status Resuscitation Status Full Code Insurance Coverage/Financial Issues Insurance: /[facility] Care Team Visit Care Team Role Provider Type Polo Pearce Primary Care Provider NON-[facility] STAFF PHYSICIAN Aaron Rodriguez MD Emergency Provider [facility] STAFF PHYSICIAN Leon Loving MD Admit Provider [facility] STAFF PHYSICIAN Attending Provider Discharge Potential Discharge Needs: PCP F/U Appt Anticipated Barriers to Discharge: None Identified Patient/Family Education Needs: Review discharge instructions, discuss Ask Me Three Transportation: Private vehicle Plan: Anticipate Indira will be discharged home with no new services when medically stable. She will follow up with her community providers and plan of care and transport with family. CM will follow and continue to support discharge planning efforts. PFSH All Active Problems (Updated 01/19/24 @ 09:19 by Charu Gonzalez) Atypical migraine (Acute) Otalgia, right ear (Acute) Acute otitis media of right ear with perforated tympanic membrane (Acute) Non-ST elevation [place] (NSTEMI) (Acute) Chronic kidney disease, stage III (moderate) (Acute) Hypermagnesemia (Acute) Acute hypokalemia (Acute) Ground glass opacity present on imaging of lung (Acute) Elevated troponin (Acute) CATIE (acute kidney injury) (Acute) Restrictive lung disease secondary to obesity (Acute) Allergic asthma (Acute) intermittent, controlled Dyspnea (Acute) Diarrhea (Acute) Congestive heart failure (Chronic) Sick euthyroidism (Acute) Carpal tunnel syndrome (Acute) GERD (gastroesophageal reflux disease) (Chronic) Bilateral renal artery stenosis (Acute) Encounter for weight loss counseling (Acute) Pulmonary emboli (Chronic) Arthritis of carpometacarpal (CMC) joint of left thumb (Acute) Avulsion fracture of right talus (Acute 12/30/21) Bilateral carpal tunnel syndrome (Acute) Paresthesia of hand, bilateral (Acute) Abnormal chest CT (Acute) Pulmonary hypertension (Acute) Atypical chest pain (Acute) PSVT (paroxysmal supraventricular tachycardia) (Acute) Acute non-ST elevation myocardial infarction (NSTEMI) (Acute) Elevated troponin I level (Acute) Right upper quadrant abdominal pain (Acute) Chronic heart failure with preserved ejection fraction (Chronic) Restless legs syndrome (Acute) Rhinitis, nonallergic, chronic (Acute) Tendinitis (Acute) Chest pain (Acute) Migraine headache without aura (Acute) Lichen sclerosus (Acute) MARYLOU (obstructive sleep apnea) (Chronic) Migraine with aura and without status migrainosus, not intractable (Acute 02/24/16) Medical History Myocardial infarction 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 Mild intermittent asthma Atherosclerosis of renal artery Heart failure Supraventricular tachycardia Atrial fibrillation Superior mesenteric artery stenosis (~03/10/22) see CTA abdomen and pelivs: 80% narrowing of SMA origin Renal artery stenosis (~03/10/22) right renal artery stenosis per CTA abomen/pelvis Hx of supraventricular tachycardia Infiltrate of lower lobe of left lung present on imaging study Acute non-ST elevation myocardial infarction (NSTEMI) COVID-19 Left lateral epicondylitis Arthritis of carpometacarpal (CMC) joint of left thumb Left wrist pain CHI (closed head injury) Acute bronchitis Non-ST elevation [place] (NSTEMI) Insomnia Asthma Migraine Overweight Endometriosis Depression Surgical History History of radiofrequency ablation (RFA) procedure for cardiac arrhythmia Hx of tubal ligation History of partial hysterectomy Family History Daughter Migraines Mother Hypertension Father Heart disease Social History Smoking/Tobacco Use Status: Never Smoking risk assessment performed?: Yes Alcohol Intake: never Drug use: Never Substance use type: does not use Housing: house Current gender identity: female Do you feel safe at home: Yes Do you feel safe in your relationship?: Yes Female Reproductive History Menstrual Menopause type: surgical History History 2 Para 2 Hx # Term Pregnancies Multiple births Hx # Pregnancies Ectopic pregnancies AB induced Hx Number of Living Children AB spontaneous SDOH(Care Management) Screening Will the Patient Participate in the Screening?: Yes Do you worry about having a steady place to live?: no Problems where you live: no known problems In the past 12 months, have you had to go without electric, gas, oil or water in your home?: no Have you or anyone in your house had to go without enough food to eat?: no Has lack of transportation kept you from medical appointments or from doing things needed for daily living?: no Has anyone in your support network made you feel unsafe for any reason?: no
--- NOTE | 2024-01-25 10:31 | RESPIRATORY ---
Addendum entered by Jazmin Smith 01/25/24 16:44: Pt's own Resmed AirCurve 10 VAuto IPAP 22 EPAP 12 PS 4 No O2 Bleed-In DME: [employer] Original Note: Spoke with patient about MARYLOU diagnosis and patient advised she has a home BiPAP through [employer] that her daughter could bring in today. Nurse notified to let RT know when machine arrives so we can inspect and set-up machine.
[2024-01-25] MEDS: Ranolazine 500 MG TABCR 1000 MG PO ×2 (12:37→21:03)
--- NOTE | 2024-01-25 12:45 | PGE_ITS ---
Date of Service Date of service: 01/25/24 Time of Service: 12:46 Subjective Subjective Interval history since last seen: Patient seen and examined in her room, did not see but I was not allowed yeah no blue no LOC okay about another computer to try it was unremarkable no but I can go back yeah okay lets go to below 5 for a number for Aaron Abraham Objective Last Vital Signs Temp 37.5 C 01/25/24 10:58 Pulse 62 01/25/24 10:58 Resp 16 01/25/24 10:58 BP 102/70 01/25/24 10:58 Pulse Ox 94 01/25/24 10:58 Laboratory Results - last 24 hr 01/24/24 01/24/24 01/24/24 13:05 14:35 15:58 WBC 5.18 RBC 4.67 Hgb 14.7 Hct 43.0 MCV 92 MCH 31.5 MCHC 34.2 RDW 13.1 Plt Count 228 MPV 10.4 Immature Gran % 0.2 Neutrophils % 50.2 Lymphocytes % 33.6 Monocytes % 10.4 Eosinophils % 5.0 Basophils % 0.6 Nucleated RBC % 0.0 Absolute Neutrophils 2.60 Absolute Lymphocytes 1.74 Absolute Monocytes 0.54 Absolute Eosinophils 0.26 Absolute Basophils 0.03 APTT 32.3 D-Dimer 241 Sodium 140 Potassium 4.1 Chloride 106 Carbon Dioxide 23.5 Anion Gap 10.5 BUN 20 H Creatinine 1.4 H Est GFR (CKD-EPI 2020) 44.71 Glucose 86 Calcium 8.9 Total Bilirubin 0.43 AST 20 ALT 32 Alkaline Phosphatase 54 Troponin I 396 H* 342 H* 359 H* Total Protein 7.8 Albumin 3.9 Urine Opiates Screen Urine Methadone Screen Ur Barbiturates Screen Ur Tricyclics Screen Ur Amphetamines Screen U Benzodiazepines Scrn Urine Cocaine Screen Ur THC Screen 01/24/24 01/24/24 01/24/24 19:55 21:22 22:50 WBC RBC Hgb Hct MCV MCH MCHC RDW Plt Count MPV Immature Gran % Neutrophils % Lymphocytes % Monocytes % Eosinophils % Basophils % Nucleated RBC % Absolute Neutrophils Absolute Lymphocytes Absolute Monocytes Absolute Eosinophils Absolute Basophils APTT > 155.0 H* D-Dimer Sodium Potassium Chloride Carbon Dioxide Anion Gap BUN Creatinine Est GFR (CKD-EPI 2020) Glucose Calcium Total Bilirubin AST ALT Alkaline Phosphatase Troponin I Cancelled 309 H* Total Protein Albumin Urine Opiates Screen Negative Urine Methadone Screen Negative Ur Barbiturates Screen Negative Ur Tricyclics Screen Negative Ur Amphetamines Screen Negative U Benzodiazepines Scrn Negative Urine Cocaine Screen Negative Ur THC Screen Negative 01/25/24 06:50 WBC 5.77 RBC 4.80 Hgb 15.2 Hct 45.2 MCV 94 MCH 31.7 MCHC 33.6 RDW 13.2 Plt Count 219 MPV 10.7 Immature Gran % 0.2 Neutrophils % 54.3 Lymphocytes % 30.8 Monocytes % 8.8 Eosinophils % 5.4 Basophils % 0.5 Nucleated RBC % 0.0 Absolute Neutrophils 3.13 Absolute Lymphocytes 1.78 Absolute Monocytes 0.51 Absolute Eosinophils 0.31 Absolute Basophils 0.03 APTT 45.8 H D-Dimer Sodium 141 Potassium 4.2 Chloride 109 H Carbon Dioxide 22.8 Anion Gap 9.2 BUN 25 H Creatinine 1.4 H Est GFR (CKD-EPI 2020) 44.71 Glucose 95 Calcium 9.2 Total Bilirubin 0.36 AST 13 L ALT 24 Alkaline Phosphatase 66 Troponin I 339 H* Total Protein 7.5 Albumin 3.8 Urine Opiates Screen Urine Methadone Screen Ur Barbiturates Screen Ur Tricyclics Screen Ur Amphetamines Screen U Benzodiazepines Scrn Urine Cocaine Screen Ur THC Screen Time Spent with Patient Time Spent with Patient: 25-34 minutes Time was spent: preparing to see the patient(eg.review tests), obtaining and/or reviewing separately otained hiistory, ordering medications,tests, procedures, referring, communicating with other health resident caregiver, indepentently interpreting results, counseling the patient and care coordination
--- NOTE | 2024-01-25 13:02 | PGE_ITS ---
Date of Service Date of service: 01/25/24 Time of Service: 17:24 Objective Last Vital Signs Temp 37.5 C 01/25/24 10:58 Pulse 62 01/25/24 10:58 Resp 16 01/25/24 10:58 BP 102/70 01/25/24 10:58 Pulse Ox 94 01/25/24 10:58 Laboratory Results - last 24 hr 01/24/24 01/24/24 01/24/24 13:05 14:35 15:58 WBC 5.18 RBC 4.67 Hgb 14.7 Hct 43.0 MCV 92 MCH 31.5 MCHC 34.2 RDW 13.1 Plt Count 228 MPV 10.4 Immature Gran % 0.2 Neutrophils % 50.2 Lymphocytes % 33.6 Monocytes % 10.4 Eosinophils % 5.0 Basophils % 0.6 Nucleated RBC % 0.0 Absolute Neutrophils 2.60 Absolute Lymphocytes 1.74 Absolute Monocytes 0.54 Absolute Eosinophils 0.26 Absolute Basophils 0.03 APTT 32.3 D-Dimer 241 Sodium 140 Potassium 4.1 Chloride 106 Carbon Dioxide 23.5 Anion Gap 10.5 BUN 20 H Creatinine 1.4 H Est GFR (CKD-EPI 2020) 44.71 Glucose 86 Calcium 8.9 Total Bilirubin 0.43 AST 20 ALT 32 Alkaline Phosphatase 54 Troponin I 396 H* 342 H* 359 H* Total Protein 7.8 Albumin 3.9 Urine Opiates Screen Urine Methadone Screen Ur Barbiturates Screen Ur Tricyclics Screen Ur Amphetamines Screen U Benzodiazepines Scrn Urine Cocaine Screen Ur THC Screen 01/24/24 01/24/24 01/24/24 19:55 21:22 22:50 WBC RBC Hgb Hct MCV MCH MCHC RDW Plt Count MPV Immature Gran % Neutrophils % Lymphocytes % Monocytes % Eosinophils % Basophils % Nucleated RBC % Absolute Neutrophils Absolute Lymphocytes Absolute Monocytes Absolute Eosinophils Absolute Basophils APTT > 155.0 H* D-Dimer Sodium Potassium Chloride Carbon Dioxide Anion Gap BUN Creatinine Est GFR (CKD-EPI 2020) Glucose Calcium Total Bilirubin AST ALT Alkaline Phosphatase Troponin I Cancelled 309 H* Total Protein Albumin Urine Opiates Screen Negative Urine Methadone Screen Negative Ur Barbiturates Screen Negative Ur Tricyclics Screen Negative Ur Amphetamines Screen Negative U Benzodiazepines Scrn Negative Urine Cocaine Screen Negative Ur THC Screen Negative 01/25/24 06:50 WBC 5.77 RBC 4.80 Hgb 15.2 Hct 45.2 MCV 94 MCH 31.7 MCHC 33.6 RDW 13.2 Plt Count 219 MPV 10.7 Immature Gran % 0.2 Neutrophils % 54.3 Lymphocytes % 30.8 Monocytes % 8.8 Eosinophils % 5.4 Basophils % 0.5 Nucleated RBC % 0.0 Absolute Neutrophils 3.13 Absolute Lymphocytes 1.78 Absolute Monocytes 0.51 Absolute Eosinophils 0.31 Absolute Basophils 0.03 APTT 45.8 H D-Dimer Sodium 141 Potassium 4.2 Chloride 109 H Carbon Dioxide 22.8 Anion Gap 9.2 BUN 25 H Creatinine 1.4 H Est GFR (CKD-EPI 2020) 44.71 Glucose 95 Calcium 9.2 Total Bilirubin 0.36 AST 13 L ALT 24 Alkaline Phosphatase 66 Troponin I 339 H* Total Protein 7.5 Albumin 3.8 Urine Opiates Screen Urine Methadone Screen Ur Barbiturates Screen Ur Tricyclics Screen Ur Amphetamines Screen U Benzodiazepines Scrn Urine Cocaine Screen Ur THC Screen Time Spent with Patient Time Spent with Patient: 25-34 minutes Time was spent: preparing to see the patient(eg.review tests), obtaining and/or reviewing separately otained hiistory, ordering medications,tests, procedures, referring, communicating with other health career specialist, indepentently interpreting results, counseling the patient and care coordination
[2024-01-25 14:54] LABS: PTT Activated 40.1 sec (23.6-32.8)
[2024-01-25] MEDS: rOPINIRole 1 MG TAB PO ×2 (15:35→21:04)
--- NOTE | 2024-01-25 16:35 | CHAPLAIN ---
I had a brief visit with Indira this morning. She was sitting up in bed. I explained my role and offered support. She didn't not seem interested in further conversation. Indira was admitted with chest pain, and according to Care Management notes has been dealing with cardiac issues in recent months and had a cardia cath last spring.
--- NOTE | 2024-01-25 17:57 | W.PM.PROGNOT ---
Date of Service Date of service: 01/25/24 Time of Service: 17:57 Assessment and Plan Assessment and plan (1) CATIE (acute kidney injury): Status: Resolved Assessment and plan: Labs do show mild elevation in BUN as well as creatinine. Estimated GFR is 44 continue with current plans 01/25/2024 Patient is current BUN and creatinine are 25 and 1.4. Continue with current therapy (2) Hypokalemia: Status: Resolved Assessment and plan: Patient's potassium is currently 4.1 we will continue with current replenishment 01/25/2024 Patient's current potassium is 4.2 so this is resolved. (3) Elevated troponin: Status: Acute Assessment and plan: I would consider her presentation curious, complex, and compelling. In reviewing the consultation from cardiology I do not see a clear plan on why she is on heparin, what we should do if the troponins continue to rise are stable or drop, or what disease the patient actually has. What I do know is that they do not want to accept her in transfer. At this point we will continue with the heparin drip and recheck serial troponins throughout the night. Also get serial EKGs. 01/25/2024 Patient's troponins are patient's troponins are 339, 309, 359, 342. I have stopped heparin drip and will do 3 more serial troponins. My plan is to discharge her tomorrow if her troponins are stable. I would like to see how they respond to not having the heparin drip as well as her pain level 9 (4) Chronic heart failure with preserved ejection fraction: Status: Chronic Assessment and plan: - Last echocardiogram likely done 06/14/2023 at [facility] shows normal LVEF - No echo at [facility] since then, but had Cardiac MRI, PET, and purfusion imaging showing fixed defect and microvascular disease, normal LVEF. -Continue home statin, spironolactone, decreased dose of torsemide and metolazone as noted above -decreased lopressor to 12.5mg BID due to ongoing bradycardia which had led to HRs in the 50's, now still in 50s but will continue this dose. -continue to monitor on telemetry given ongoing low blood pressure and patient symptoms, we continue to adjust medications. I was able to review the cardiology consult from the last visit. Will continue with medical management at this point. (5) MARYLOU (obstructive sleep apnea): Status: Chronic Assessment and plan: - Continue home CPAP (6) Restless legs syndrome: Status: Acute Assessment and plan: -Continue home ropinirole Subjective Subjective Interval history since last seen: Patient seen and examined in her room this morning. Patient states that her pain has improved. Patient states that she does have some left substernal pain when she lays flat but otherwise states that her pain has resolved. Exam Narrative Exam Narrative: HEENT: Normocephalic atraumatic mucous membranes moist oropharynx clear extraocular motions are intact pupils equal round reactive to light Neck: No lymphadenopathy no JVD no thyroid megaly Cardiovascular: Regular rate and rhythm no murmur rubs or gallops Lungs: Clear to auscultation bilaterally with good air exchange able to speak in complete sentences Abdomen: Soft nontender nondistended but obese. Extremities: No sinus clubbing or edema bilaterally neurologic: Cranial nerves II through XII intact as tested reflexes upper extremity normal as tested Psych: Her affect is appropriate she has a normal speech pattern she is alert and orient x 3 Objective Last Vital Signs Temp 37.6 C H 01/25/24 15:03 Pulse 56 L 01/25/24 15:03 Resp 16 01/25/24 15:03 BP 102/58 L 01/25/24 15:03 Pulse Ox 95 01/25/24 15:03 Laboratory Results - last 24 hr 01/24/24 01/24/24 01/24/24 19:55 21:22 22:50 WBC RBC Hgb Hct MCV MCH MCHC RDW Plt Count MPV Immature Gran % Neutrophils % Lymphocytes % Monocytes % Eosinophils % Basophils % Nucleated RBC % Absolute Neutrophils Absolute Lymphocytes Absolute Monocytes Absolute Eosinophils Absolute Basophils APTT > 155.0 H* Sodium Potassium Chloride Carbon Dioxide Anion Gap BUN Creatinine Est GFR (CKD-EPI 2020) Glucose Calcium Total Bilirubin AST ALT Alkaline Phosphatase Troponin I Cancelled 309 H* Total Protein Albumin Urine Opiates Screen Negative Urine Methadone Screen Negative Ur Barbiturates Screen Negative Ur Tricyclics Screen Negative Ur Amphetamines Screen Negative U Benzodiazepines Scrn Negative Urine Cocaine Screen Negative Ur THC Screen Negative 01/25/24 01/25/24 06:50 14:34 WBC 5.77 RBC 4.80 Hgb 15.2 Hct 45.2 MCV 94 MCH 31.7 MCHC 33.6 RDW 13.2 Plt Count 219 MPV 10.7 Immature Gran % 0.2 Neutrophils % 54.3 Lymphocytes % 30.8 Monocytes % 8.8 Eosinophils % 5.4 Basophils % 0.5 Nucleated RBC % 0.0 Absolute Neutrophils 3.13 Absolute Lymphocytes 1.78 Absolute Monocytes 0.51 Absolute Eosinophils 0.31 Absolute Basophils 0.03 APTT 45.8 H 40.1 H Sodium 141 Potassium 4.2 Chloride 109 H Carbon Dioxide 22.8 Anion Gap 9.2 BUN 25 H Creatinine 1.4 H Est GFR (CKD-EPI 2020) 44.71 Glucose 95 Calcium 9.2 Total Bilirubin 0.36 AST 13 L ALT 24 Alkaline Phosphatase 66 Troponin I 339 H* Total Protein 7.5 Albumin 3.8 Urine Opiates Screen Urine Methadone Screen Ur Barbiturates Screen Ur Tricyclics Screen Ur Amphetamines Screen U Benzodiazepines Scrn Urine Cocaine Screen Ur THC Screen Time Spent with Patient Time Spent with Patient: >50 minutes Time was spent: preparing to see the patient(eg.review tests), obtaining and/or reviewing separately otained hiistory, ordering medications,tests, procedures, referring, communicating with other health care giver, indepentently interpreting results, counseling the patient and care coordination
[2024-01-25] MEDS: Topiramate 25 MG TAB 100 MG PO (21:03)
[2024-01-25] MEDS: Gabapentin 600 MG TAB PO (21:03)
[2024-01-25] MEDS: Atorvastatin 40 MG TAB PO (21:04)
[2024-01-25 22:05] LABS: Troponin I 293 ng/L (<or=51)
[2024-01-26 03:30] VITALS: BP 113/63; PULSE 50; RESP 16; TEMP 36; O2SAT 99
[2024-01-26 07:17] LABS: ALT 25 U/L (14-59); AST 17 U/L (15-37); Albumin 3.6 g/dL (3.4-5.0); Alkaline Phosphatase 55 U/L (46-116); Anion Gap 10.2 mmol/L (3-11); BUN 26 mg/dL (7-18); Bilirubin, Total 0.39 mg/dL (0.2-1.0); CO2 22.8 mmol/L (21.0-32.0); CREATININE 1.4 mg/dL (0.55-1.02); Calcium 9.3 mg/dL (8.5-10.1); Chloride 108 mmol/L (98-107); Estimated GFR 44.71 (mL/min/1.73m2); Glucose 102 mg/dL (74-106); Potassium 4.5 mmol/L (3.5-5.1); Sodium 141 mmol/L (136-145); Total Protein 7.2 g/dL (6.4-8.2)
[2024-01-26 07:27] LABS: Abs Immature Grans 0.02 10^3/uL (0.0-0.06); Absolute Basophil Count 0.04 10^3/uL (0.0-0.2); Absolute Eosinophil Count 0.37 10^3/uL (0.0-0.7); Absolute Lymphocyte Count 2.09 10^3/uL (1.2-3.4); Absolute Monocyte Count 0.56 10^3/uL (0.1-0.8); Absolute Neutrophil Count 3.61 10^3/uL (1.2-6.7); Basophils % 0.6 %; Eosinophils % 5.5 %; HCT 44.4 % (36.0-46.0); HGB 14.7 g/dL (11.2-15.7); Immature Grans % 0.3 %; Lymphocytes % 31.2 %; MCH 31.7 pg (27.0-33.0); MCHC 33.1 % (32.0-36.0); MCV 96 fL (80-95); MPV 10.6 fL (8.0-11.0); Monocytes % 8.4 %; Platelet Count 215 10^3/uL (130-400); RBC 4.64 10^6/uL (3.93-5.22); RDW 13.2 % (11.7-14.6); RDW-SD 46.5 fL; WBC 6.69 10^3/uL (4.4-10.8)
[2024-01-26 07:37] VITALS: BP 103/63; PULSE 51; RESP 16; TEMP 36.2; O2SAT 98
[2024-01-26] MEDS: Omeprazole 20 MG CAPCR PO (08:57)
[2024-01-26] MEDS: DULoxetine 30 MG CAP 60 MG PO (08:57)
[2024-01-26] MEDS: Metoprolol 12.5 MG TAB PO (08:57)
[2024-01-26] MEDS: Potassium Chloride 20 MEQ TABCR 40 MEQ PO (08:57)
[2024-01-26] MEDS: Ranolazine 500 MG TABCR 1000 MG PO (08:58)
[2024-01-26] MEDS: Normal Saline Flush 10 ML SYR IVP (09:00)
[2024-01-26] MEDS: Isosorbide Mononitrate 30 MG TABCR 15 MG PO (09:00)
[2024-01-26] MEDS: Empaglifozin 10 MG TAB PO (09:00)
[2024-01-26] MEDS: Torsemide 20 MG TAB PO (09:00)
--- NOTE | 2024-01-26 09:06 | PDOC.CMPRO ---
Date of service: 01/26/24 Time of Service: 09:06 Care Management Progress Note Discharge Potential Discharge Needs: PCP F/U Appt Anticipated Barriers to Discharge: None Identified Patient/Family Education Needs: Review discharge instructions, discuss Ask Me Three Transportation: Private vehicle Plan: Anticipate Indira will be discharged home with no new services when medically stable. She will follow up with her community providers and plan of care and transport with family. CM will follow and continue to support discharge planning efforts. SDOH(Care Management) Screening Will the Patient Participate in the Screening?: Yes Do you worry about having a steady place to live?: no Problems where you live: no known problems In the past 12 months, have you had to go without electric, gas, oil or water in your home?: no Have you or anyone in your house had to go without enough food to eat?: no Has lack of transportation kept you from medical appointments or from doing things needed for daily living?: no Has anyone in your support network made you feel unsafe for any reason?: no
[2024-01-26] MEDS: Apixaban 5 MG TAB PO (10:23)
[2024-01-26 11:18] VITALS: BP 106/58; PULSE 54; RESP 15; TEMP 36.4; O2SAT 96
--- NOTE | 2024-01-26 14:09 | DSE_ITS ---
Date of service: 01/26/24 Time of Service: 14:09 DS: Diagnosis Discharge Diagnosis (1) CATIE (acute kidney injury): Status: Resolved (2) Hypokalemia: Status: Resolved (3) Elevated troponin: Status: Acute (4) Chronic heart failure with preserved ejection fraction: Status: Chronic (5) MARYLOU (obstructive sleep apnea): Status: Chronic (6) Restless legs syndrome: Status: Acute Discharge Plan Disposition Patient Disposition: Home Condition: Good Discharge Details Reason For Visit: Chest Pain Admit Date/Time: 01/24/24 18:32 Admit Provider: Leon Loving Attending Provider: Leon Loving Primary Care Provider: Polo Pearce Hospital Course Hospital Course: Patient initially presented to the emergency department with ongoing chest pain for which there was initial conference are not for ACS. Patient was discussed with [facility] did not believe patient warranted sharma sfer for heart catheterization but did recommend starting heparin drip, trending tropes, as well as discontinuing spironolactone and starting 15 mg dose of isosorbide dinitrate. Patient's troponins did improve even after discontinuing heparin drip, and chest pain did have some mild improvement after the initiation of low-dose Imdur. 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 Home Meds and New Rx's Prescriptions: New isosorbide mononitrate 30 mg Tablet Extended Release 24 Hr 15 mg PO DAILY Qty: 90 0RF Continued ropinirole 1 mg tablet 1 mg PO BID Rx Instructions: @ 1600 and 2100 potassium chloride 20 mEq tablet,ER particles/crystals 40 meq PO BID atorvastatin 80 mg tablet 40 mg PO QPM Wegovy 0.5 mg/0.5 mL pen injector 0.5 mg subcut QWEEK Rx Instructions: administer weeks 5 through 8 of therapy Ubrelvy 50 mg tablet 50 mg PO ONCE Rx Instructions: as a single dose; may repeat once in >=2 hours after first dose if needed topiramate [Topamax] 100 mg tablet 100 mg PO QHS Qty: 90 3RF Aimovig Autoinjector 140 mg/mL auto-injector 140 mg subcut QMONTH Qty: 1 11RF fluticasone propionate [Flonase Allergy Relief] 9.9 ML spray,suspension 2 spray NS DAILY duloxetine [Cymbalta] 60 mg capsule,delayed release(DR/EC) 60 mg PO DAILY Qty: 30 2RF albuterol sulfate 90 mcg/actuation HFA aerosol inhaler 2 puff inhalation Q4H PRN loratadine [Allergy Relief (loratadine)] 10 mg tablet 10 mg PO DAILY PRN nitroglycerin 0.4 mg tablet, sublingual 0.4 mg sublingual Q5M PRN Rx Instructions: do not exceed 3 doses per episode clobetasol 0.05 % ointment 1 applic topical DIRECTED omeprazole 20 mg capsule,delayed release(DR/EC) 20 mg PO DAILY gabapentin 600 mg tablet 600 mg PO QHS Qty: 90 3RF apixaban 5 mg tablet 5 mg PO BID Jardiance 10 mg tablet 10 mg PO DAILY ranolazine 1,000 mg tablet extended release 12 hr 1,000 mg PO BID montelukast 10 mg tablet 10 mg PO DAILY PRN melatonin 10 mg capsule 10 mg PO HS PRN metoprolol tartrate 25 mg tablet 12.5 mg PO DAILY torsemide 20 mg Tablet 20 mg PO DAILY Qty: 90 0RF metolazone 2.5 mg tablet 2.5 mg PO PRN PRNQty: 0 0RF Discontinued spironolactone 25 mg tablet 25 mg PO DAILY Discharge Instructions Activity:: Activity as Tolerated Equipment/Supplies:: No Equipment Needed Diet:: As Tolerated Discharge Orders Discharge Orders: Discharge Order (Routine); Ordered 01/26/24 Ordered By: Roman Jones DS: Summary Time Spent with Patient providing and/or coordinating discharge services: Greater than 30 minutes Status at Discharge Functional status at discharge: independent ambulation Overall status at discharge: patient is back to baseline Mental Status: mental status grossly normal Speech and Movement: speech and movement normal Mood: congruent mood Affect: normal affect Quality:SDOH Health Related Social Needs: No Data to Display Exam Narrative Exam Narrative: Well-appearing female sitting up in the chair no acute distress, ANO x 4, heart regular rhythm, lungs clear to auscultation bilaterally, abdomen soft, nontender, nondistended Psych Mental Status: mental status grossly normal Speech and Movement: speech and movement normal Mood: congruent mood Affect: normal affect DS: Data Vitals/I&O Vitals and I&O: Vital Signs Temperature 97.5 F L 01/26/24 11:18 Temperature Source Temporal Artery Scan 01/26/24 11:18 Pulse 54 L 01/26/24 11:18 Pulse Rhythm Regular 01/24/24 21:31 Pulse 51 L 01/24/24 20:46 Respiratory Rate 15 01/26/24 11:18 Respiratory Effort Normal, Non-Labored 01/24/24 21:31 Respiratory Depth Normal 01/24/24 21:31 Respiratory Pattern Normal 01/24/24 21:31 Blood Pressure 106/58 L 01/26/24 11:18 Blood Pressure Mean 68 01/24/24 20:46 Blood Pressure Position Sitting 01/24/24 12:33 Pulse Oximetry 96 01/26/24 11:18 Oxygen Delivery Method Room Air 01/26/24 11:18 Oxygen Flow Rate 0 01/26/24 11:18 Pain Level 0 01/25/24 15:03 Intake & Output 01/25/24 01/26/24 01/26/24 17:59 05:59 17:59 Intake Total 334.816 / 334.816 10 / 344.816 Output Total 1400 / 1400 1200 / 2600 700 / 700 Balance -1065.184 / -1065.184 -1190 / -2255.184 -700 / -700 Intake: IV 94.816 / 94.816 10 / 104.816 Oral 240 / 240 Output: Urine 1400 / 1400 1200 / 2600 700 / 700 Other: Urine Color Yellow Yellow Light Machelle Urine Appearance Clear Clear Clear Urine Odor None Comment multiple voids. Data Completed and Pending Labs on day of discharge: Labs from last 24 hours 01/26/24 01/25/24 01/25/24 06:42 21:37 14:34 WBC 6.69 RBC 4.64 Hgb 14.7 Hct 44.4 MCV 96 H MCH 31.7 MCHC 33.1 RDW 13.2 Plt Count 215 MPV 10.6 Immature Gran % 0.3 Neutrophils % 54.0 Lymphocytes % 31.2 Monocytes % 8.4 Eosinophils % 5.5 Basophils % 0.6 Nucleated RBC % 0.0 Absolute Neutrophils 3.61 Absolute Lymphocytes 2.09 Absolute Monocytes 0.56 Absolute Eosinophils 0.37 Absolute Basophils 0.04 APTT 40.1 H Sodium 141 Potassium 4.5 Chloride 108 H Carbon Dioxide 22.8 Anion Gap 10.2 BUN 26 H Creatinine 1.4 H Est GFR (CKD-EPI 2020) 44.71 Glucose 102 Calcium 9.3 Total Bilirubin 0.39 AST 17 ALT 25 Alkaline Phosphatase 55 Troponin I 293 H* Total Protein 7.2 Albumin 3.6 PFSH All Active Problems (Updated 01/19/24 @ 09:19 by Charu Gonzalez) Atypical migraine (Acute) Otalgia, right ear (Acute) Acute otitis media of right ear with perforated tympanic membrane (Acute) Non-ST elevation PA (NSTEMI) (Acute) Chronic kidney disease, stage III (moderate) (Acute) Hypermagnesemia (Acute) Acute hypokalemia (Acute) Ground glass opacity present on imaging of lung (Acute) Elevated troponin (Acute) ACTIE (acute kidney injury) (Acute) Restrictive lung disease secondary to obesity (Acute) Allergic asthma (Acute) intermittent, controlled Dyspnea (Acute) Diarrhea (Acute) Congestive heart failure (Chronic) Sick euthyroidism (Acute) Carpal tunnel syndrome (Acute) GERD (gastroesophageal reflux disease) (Chronic) Bilateral renal artery stenosis (Acute) Encounter for weight loss counseling (Acute) Pulmonary emboli (Chronic) Arthritis of carpometacarpal (CMC) joint of left thumb (Acute) Avulsion fracture of right talus (Acute 12/30/21) Bilateral carpal tunnel syndrome (Acute) Paresthesia of hand, bilateral (Acute) Abnormal chest CT (Acute) Pulmonary hypertension (Acute) Atypical chest pain (Acute) PSVT (paroxysmal supraventricular tachycardia) (Acute) Acute non-ST elevation myocardial infarction (NSTEMI) (Acute) Elevated troponin I level (Acute) Right upper quadrant abdominal pain (Acute) Chronic heart failure with preserved ejection fraction (Chronic) Restless legs syndrome (Acute) Rhinitis, nonallergic, chronic (Acute) Tendinitis (Acute) Chest pain (Acute) Migraine headache without aura (Acute) Lichen sclerosus (Acute) MARYLOU (obstructive sleep apnea) (Chronic) Migraine with aura and without status migrainosus, not intractable (Acute 02/24/16) Medical History Myocardial infarction 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 Mild intermittent asthma Atherosclerosis of renal artery Heart failure Supraventricular tachycardia Atrial fibrillation Superior mesenteric artery stenosis (~03/10/22) see CTA abdomen and pelivs: 80% narrowing of SMA origin Renal artery stenosis (~03/10/22) right renal artery stenosis per CTA abomen/pelvis Hx of supraventricular tachycardia Infiltrate of lower lobe of left lung present on imaging study Acute non-ST elevation myocardial infarction (NSTEMI) COVID-19 Left lateral epicondylitis Arthritis of carpometacarpal (CMC) joint of left thumb Left wrist pain CHI (closed head injury) Acute bronchitis Non-ST elevation PA (NSTEMI) Insomnia Asthma Migraine Overweight Endometriosis Depression Surgical History History of radiofrequency ablation (RFA) procedure for cardiac arrhythmia Hx of tubal ligation History of partial hysterectomy Family History Daughter Migraines Mother Hypertension Father Heart disease Social History Smoking/Tobacco Use Status: Never Smoking risk assessment performed?: Yes Alcohol Intake: never Drug use: Never Substance use type: does not use Housing: house Current gender identity: female Do you feel safe at home: Yes Do you feel safe in your relationship?: Yes Female Reproductive History Menstrual Menopause type: surgical History History 2 Para 2 Hx # Term Pregnancies Multiple births Hx # Pregnancies Ectopic pregnancies AB induced Hx Number of Living Children AB spontaneous Time Spent with Patient Time Spent with Patient: <45 minutes Time was spent: preparing to see the patient(eg.review tests), obtaining and/or reviewing separately otained hiistory, ordering medications,tests, procedures, referring, communicating with other health assurance services manager health care, indepentently interpreting results, counseling the patient and care coordination
[2024-01-26 15:02] VITALS: BP 107/65; PULSE 65; RESP 16; TEMP 36.7; O2SAT 96
--- NOTE | 2024-01-26 17:17 | CMDISCH_ITS ---
Date of service: 01/26/24 Time of Service: 17:17 LACE Index Scoring Tool Questions: Length of Stay (in days): 2 Was the patient admitted via the E.D.?: Yes Comorbidities: Previous M.I., Congestive Heart Failure and Liver or Renal Disease E.D. Visits: 5 Answers: Total Score: 14 Risk of Readmission: High Risk Care Management Discharge Plan Reason for Hospitalization: chest pain Discharge Plan: Indira will be discharged home with no no new services. She will follow up with her community providers and plan of care and will drive herself home. Patient/Family Education Needs: Review of discharge instructions, activity, limitations, follow up plan and discuss Ask Me Three [facility] Health Related Social Needs: No Data to Display
== END 2024-01-26 15:57 | disposition home or self-care (01) | DRG 683 ==
LOC: ER 16:38 → MS 01-25 09:26
PROVIDERS: Family Medicine; Admitting Provider Hospitalist; Emergency Provider Emergency Medicine; PCP Physician Assistant; Visit Provider Hospitalist
DX: N17.9 Acute kidney failure, unspecified (principal); I47.10 Supraventricular tachycardia, unspecified; I50.32 Chronic diastolic (congestive) heart failure; E87.6 Hypokalemia; R74.8 Abnormal levels of other serum enzymes; G47.33 Obstructive sleep apnea (adult) (pediatric); G25.81 Restless legs syndrome; G43.809 Other migraine, not intractable, without status migrainosus; I25.2 Old myocardial infarction; N18.30 Chronic kidney disease, stage 3 unspecified; E66.9 Obesity, unspecified; J98.4 Other disorders of lung; K21.9 Gastro-esophageal reflux disease without esophagitis; I70.1 Atherosclerosis of renal artery; I27.20 Pulmonary hypertension, unspecified; I25.10 Atherosclerotic heart disease of native coronary artery without angina pectoris; R07.89 Other chest pain; Z86.711 Personal history of pulmonary embolism; Z95.828 Presence of other vascular implants and grafts
CPT/HCPCS: 00123; 36415; 80053; 80307; 93005; 96365; 96366; 99285; 71045; 84484; 85025; 85379; 85730; 93010; 99222; 99231; 99239; J1644; J3490

== ENCOUNTER 2024-04-10 16:34 | Emergency (ER) | payer BC, SELFPAY ==
[2024-04-10] VITALS (24 sets, daily range): BP systolic 109–128; BP diastolic 55–76; PULSE 49–79; RESP 7–17; TEMP 36.8; O2SAT 96–100
--- NOTE | 2024-04-10 17:00 | RT.EKG_ITS ---
APPROVED REPORT Exam: Resting ECG Reason for Exam: chest pain Patient Location: E HR:65 bpm ECG Measurements Heart Rate 65 AXIS DE 171 P 34 QRSd 90 QRS 48 QT 450 T 121 QTc 468 Conclusion Sinus normal axis st depression not acute no stemi
--- OUTSIDE RECORDS SUMMARY | 2024-04-10 17:00 | XMS_ITS | Encounter Summary ---
Author Organization [facility] [place] [address] Care Team Providers Care Hurl Shaker Name Role Phone Polo Pearce Primary Care Provider [phone] Reason for Referral * Consultation (Routine) - Authorized Specialty Diagnoses / Procedures Referred By Contac t Referred To Contact Cardiology Diagnoses Heart failure with preserved ejection fraction, unspecified HF chronicity Paroxysmal atrial fibrillation Jaspreet Kinsey MD [facility] [place] [address] Unknown None Referral ID Status Reason Start Date Expiration Date Visits Requested Visits Authorized [id number] Authorized Consult, Test & Treat Non PCP 02/10/2024 08/08/2024 1 1 Reason for Visit * Reason Comments Congestive Heart Failure Encounter Details Date Type Department Care Team (Late st Contact Info) Description 02/10/2024 1:00 PM EST Office Visit Cardiology at [address] [phone] Jaspreet Kinsey MD [facility] [place] [address] Heart failure with preserved ejection fraction, unspecified [...] in the past [address] [facility], were you homeless or living in a group home (including now)? No 08/30/2023 IPV Inpatient [...] Sign Reading Time Taken Comments Blood Pressure 102/52 02/10/2024 1:26 PM EST Pulse 64 02/10/2024 1:26 PM EST Temperature - - Respiratory Rate - - Oxygen Saturation - - Inhaled Oxygen Concentration - - Weight 96.6 kg (213 lb) 02/10/2024 1:26 PM EST Height 162.6 cm (5' 4) 02/10/2024 1:26 PM EST Body Mass Index 36.56 02/10/2024 1:26 PM EST documented in this encounter Patient Instructions * Patient Instructions* Jaspreet Kinsey MD - 02/10/2024 1:00 PM EST Please call registration phone at [facility] to set up an account there, such that a referral can be then processed, and let us know when you do: [phone] documented in this encounter Progress Notes * Jaspreet Kinsey MD - 02/10/2024 1:00 PM EST Images from the original note were not included. Subjective: Patient ID: Indira Roque is a 53 y.o. female who presents on follow-up for: Chief Complaint Patient presents with Congestive Heart Failure HPI Last seen by me 10/2023, at which time no changes were made. Since then, she was admitted to [facility] with similar chest pain, lasting 2 days before presenting. Found to have elevated biomarkers. She noted GTN helped minimally. It was made worse with laying flat, improving a few minutes after sitting upright. She does note that she developed her migraine leadinginto the chest pain No bleeding on eliquis Has been losing caloric weight on wegevy. Maintains good UOP with torsemide; has not required metolazone PRN Current Outpatient Medications Medication Instructions Aimovig Autoinjector 140 mg/mL Auto-Injector albuterol (PROVENTIL HFA;VENTOLIN HFA) 90 mcg/Actuation inhaler 2 puffs, Inhalation, EVERY 4 HOURS PRN, Use with spacer apixaban (ELIQUIS) 5 mg, Oral, 2 TIMES DAILY atorvastatin (LIPITOR) 40 mg, Oral, EVERY EVENING DULoxetine DR (CYMBALTA) 60 mg, DAILY empagliflozin (JARDIANCE) 10 mg, Oral, DAILY fluticasone propionate (FLONASE) 50 mcg/actuation [place], Suspension 1 spray, Each Nare, PRN gabapentin (NEURONTIN) 600 mg, Oral, NIGHTLY loratadine (CLARITIN) 10 mg, Oral, DAILY PRN melatonin 10 mg, Oral, NIGHTLY metOLazone (ZAROXOLYN) 2.5 mg, Oral, PRN metoproloL tartrate (LOPRESSOR) 12.5 mg, Oral, DAILY nitroGLYcerin (NITROSTAT) 0.4 mg, Sublingual, EVERY 5 MIN PRN omeprazole (PRILOSEC) 40 mg, Oral, DAILY potassium chloride (Klor-Con, K-Tab) [...] 2 HOURS AFTER FIRST DOSE IF NEEDED Wegovy 0.5 mg/0.5 mL Pen Injector INJECT 0.5 MG (ONE PEN) SUBCUTANEOUSLY ONCE WEEKLY Patient Active Problem List Diagnosis (HFpEF) heart [...] syndrome Insomnia Restless legs Asthma Objective: BP 102/52 (BP Location (NBP): Right arm, Patient Position: Sitting, BP Cuff Sizes: Large Adult (32-43 cm)) Pulse 64 Ht 162.6 cm (5' 4) Wt 96.6 kg (213 lb) BMI 36.56 kg/m?? Gen: pleasant female in NAD Cor: rrr, s1/s2 of nl character and amplitude, no pathologic m/r/g. Estimated RAP not elevated. Carotids with normal upstroke without bruit. Pulm: CTAB. Normal diaphragmatic movement without use of accessory muscles Assessment and Plan: I remain perplexed regarding her chest pain synddrome, especially as they are inevitably paired with elevated biomarkers, asd she has the history of abnormal cardiac evaluation as per problem list. In keeping with previous plan, I think it is reasonable to refer to [facility] for a center opinion. Thefollowing remain as correlative: a) is the migraine a cause of or effect of the chest pain, and b) c an there be myocardial endometriosis (again, doubtful regarding this). Will also ask GI if they would comment on the hiatal hernia being a cause of the chest pain, especially in context of the supinepositioning making this episode worse. RTC pending [facility] evaluation Jaspreet Kinsey MD documented in this encounter Plan of Treatment Upcoming Encounters Date Type Department Care Team (Late st Contact Info) Description 07/19/2024 3:00 PM EDT Office [place] [phone] [place] [address] Scheduled Referrals Name Type Priority Associated Diagnoses Orde r Schedule Referral to Cardiology Outpatient Referral Routine Heart failure with preserved ejection fraction, unspecified HF chronicity Paroxysmal atrial fibrillation Ordered: 02/10/2024 documented as of this encounter Visit Diagnoses Diagnosis Heart failure with preserved ejection fraction, unspecified HF chronicity Paroxysmal atrial fibrillation Atrial fibrillation documented in this encounter Care Teams Hurl Shaker Relationship Specialty Start Date End Date Polo Pearce PA [address] [place] [address] PCP - General Internal Medicine 06/09/21 documented as of this encounter
--- OUTSIDE RECORDS SUMMARY | 2024-04-10 17:00 | XMS_ITS | Encounter Summary ---
Author Organization [place] [address] Care Team Providers Care Physiotherapy Practice Manager Name Role Phone Polo Pearce Primary Care Provider [phone] Encounter Details Date Type Department Care Team (Late st Contact Info) Description 04/08/2024 External [place] [address] Social History Tobacco Use Types Packs/Day Years Used Date Smoking Tobacco: Never Smokeless Tobacco: Never Alcohol Use Standard Drinks/Week Comments Never 0 (1 standard drink = 0.6 oz pur e alcohol) [facility] Utilities Answer Date Recorded In [...] any time in the past 12 m [facility], were you homeless or living in [...] 3:00 PM EDT Office [place] [address] [place] [address] documented as of this encounter Procedures Procedure Name Priority Date/Time Associated Diagnosis Comments MISC EXTERNAL CARDIOLOGY RESULT Routine 04/08/2024 5:06 PM EST documented in this encounter Results * External Cardiology Result (04/08/2024 5:06 PM EST) Anatomical Region Laterality Modality Other Historical Provider EXTERNAL CARDIOLO GY RESULT documented in this encounter Visit Diagnoses Not on filedocumented in this encounter Care Teams Physiotherapy Practice Manager Relationship Specialty Start Date End Date Polo Pearce PA [address] [place] [address] PCP - General Internal Medicine 06/09/21 documented as of this encounter
--- OUTSIDE RECORDS SUMMARY | 2024-04-10 17:00 | XMS_ITS | Encounter Summary ---
Author Organization [facility] [place] [address] Care Team Providers Care Liner Helper Name Role Phone Polo Pearce Primary Care Provider [phone] Encounter Details Date Type Department Care Team (Late st Contact Info) Description 01/24/2024 External [place] [address] Social History Tobacco Use Types Packs/Day Years [...] 3:00 PM EDT Office [place] [address] [place] [address] documented as of this encounter Procedures Procedure Name Priority Date/Time Associated Diagnosis Comments MISC EXTERNAL CARDIOLOGY RESULT Routine 01/24/2024 3:42 PM EST documented in this encounter Results * External Cardiology Result (01/24/2024 3:42 PM EST) Anatomical Region Laterality Modality Other Historical Provider EXTERNAL CARDIOLO GY RESULT documented in this encounter Visit Diagnoses Not on filedocumented in this encounter Care Teams Liner Helper Relationship Specialty Start Date End Date Polo Pearce PA [address] [place] [address] PCP - General Internal Medicine 06/09/21 documented as of this encounter
--- OUTSIDE RECORDS SUMMARY | 2024-04-10 17:00 | XMS_ITS | Clinical Summary ---
Author Organization [facility] Address [facility] [place] [address] Care Team Providers Care Secondary School Teacher Name Role Phone Polo Pearce Primary Care Provider [phone] Allergies Active Allergy Reactions Criticality Noted Date [...] spacer Active fluticasone propionate (FLONASE) 50 mcg/actuation [place], Suspension 1 spray by Each Nare [...] needed. Active empagliflozin (Jardiance) 10 mg TabletIndications: Chronic heart failure with preserved ejection fraction Take [...] tablet 10/28/2023 Active torsemide (Demadex) 20 mg tabletIndications: Heart failure with preserved ejection fraction, unspecified HF chronicity Take 1 tablet by mouth daily. 10/28/2023 Active Wegovy 0.5 mg/0.5 mL Pen Injector INJECT 0.5 MG (ONE PEN) SUBCUTANEOUSLY ONCE WEEKLY 11/15/2023 Active metoproloL tartrate (Lopressor) 25 mg tabletIndications: PAF (paroxysmal atrial fibrillation) Take 0.5 tablets by mouth daily. 30 tablet 5 11/22/2023 Active omeprazole (PriLOSEC) [address] capsuleIndications :Gastroesophageal reflux disease, unspecified whether esophagitis present Take 1 capsule by mouth daily. 30 capsule 11 01/12/2024 11/06/202 5 Active Aimovig Autoinjector 140 mg/mL Auto-Injector 01/20/2024 Active Active Problems Problem Noted Date Diagnosed [...] 04/29/2020 Overview (10/28/2023): 05/2021: subacute, presented to [facility] with RUQ pain, weight [...] sarcoid. Anterior scar pattern 06/2023: Admission at [facility] ([facility]). TTE with low-normal EF, [...] possibility should still be entertained. Will ask cold work operator contacts/colleagues regarding this prospect - torsemide [...] consider referral to the clare Mcdaniels of [facility] expertise IN the meantime, increase torsemide [...] discharge summary and medication administration record from [facility] to see what was [...] diagnosis of hypertension 06/07/2021 07/23/2021 Non-ST elevation [facility] (NSTEMI) 08/29/2019 03/16/2022 Rhinitis, nonallergic, chronic 06/26/2010 07/30/2022 Encounters Date Type Department Care Team Description 04/08/2024 Telephone Principle [place] [address] Abner Kapoor MD 04/08/2024 [place] [address] 02/17/2024 Telephone Cardiology at [address] [address] Jaspreet Kinsey MD 02/17/2024 Telephone Cardiology at [address] [address] Jaspreet Kinsey MD 02/10/2024 1:00 PM EST Office Visit Cardiology at [address] [address] Jaspreet Kinsey MD Heart failure with preserved ejection fraction, unspecified HF chronicity; Paroxysmal atrial fibrillation 02/10/2024 Travel 01/25/2024 Telephone Cardiology at [address] [address] Jaspreet Kinsey MD 01/24/2024 Telephone Cardiology at [address] [address] Maegan Mike APRN Advice Only 01/24/2024 External [place] [address] 01/12/2024 3:00 PM EST Office [place] [address] Mary Reyes APRN Gastroesophageal reflux disease, unspecified whether esophagitis present 01/12/2024 Travel from Last 3 Months Family History [...] any time in the past 12 m [facility], were you homeless or living in [...] Pulse 64 02/10/2024 1:26 PM EST Temperature 37.1 ??C (98.8 ??F) 09/10/2023 12:09 PM E DT Respiratory Rate 18 09/10/2023 12:09 PM EDT Oxygen Saturation 97% 11/22/2023 4:35 PM EDT Inhaled Oxygen Concentration - - Weight 96.6 kg (213 lb) 02/10/2024 1:26 PM EST Height 162.6 cm (5' 4) 02/10/2024 1:26 PM EST Body Mass Index 36.56 02/10/2024 1:26 PM EST Plan of Treatment Upcoming Encounters Date Type Department Care Team (Late st Contact Info) Description 07/19/2024 3:00 PM EDT Office [place] [address] [place] [address] Health Maintenance Due Date Last Done Comments CT Colonography 1969 FIT DNA 1969 FIT 1969 Sigmoidoscopy 1969 HIV screen 1987 Hepatitis C Screening 1987 Hepatitis B vaccine (0-59 yr s) (1) 1988 Pneumoccocal Vaccine: 50+ (1 of 2 - PCV) 1988 Tetanus/Diphtheria/Pertussis Vaccines (1 - Tdap) 1988 [...] history exists Medical Devices Implanted Type Area Operating Room Registered Nurse Device Identifier Shelf Expiration Date Model / Serial / Lot Stent Graft [id number] Il Viabahn Vbx ([id number]) (Autoreq)-4/08/2023 Implanted:Qty : 1 on 07/02/[address] MD IMPLANTS [employer] - ERIK STACY SHANTA [id number] / / [id number] Description:sma stent placem ent Procedures Procedure Name Priority Date/Time Associated Diagnosis Comments MISC EXTERNAL CARDIOLOGY RESULT Routine 04/08/2024 5:06 PM EST MISC EXTERNAL CARDIOLOGY RESULT Routine 01/24/2024 3:42 PM EST BASIC METABOLIC PANEL Routine 09/10/2023 4:17 AM EDT LIPID PANEL (REFLEX DIRECT LDL) Routine 08/28/2023 9:07 PM EDT COLONOSCOPY Routine 07/07/2023 1:39 PM EDT from Last 3 Months or Most Recently Relevant to Health Maintenance Results * External Cardiology Result (04/08/2024 5:06 PM EST) Anatomical Region Laterality Modality Other Historical Provider EXTERNAL CARDIOLO GY RESULT * External Cardiology Result (01/24/2024 3:42 PM EST) Anatomical Region Laterality Modality Other Historical Provider EXTERNAL CARDIOLO GY RESULT * (ABNORMAL) Basic Metabolic Panel (non-fasting) (09/10/2023 4:17 AM EDT) Glucose 92 65 - 199 mg/dL [facility] CHEMISTRY ORDERABL ES [facility] [place] [address] * Lipid Panel (Reflex Direct LDL) (08/28/2023 9:07 PM EDT) Cholesterol, Total 203 mg/dL [facility] Comment: Desirable: ? <200 mg/dL Borderline High: 200-239 mg/dL Higher: ?>ww=094 mg/dL Triglyceride 146 mg/dL [facility] Comment: Normal: ?<150 mg/dL Borderline High: 150-199 mg/dL High: ?200-499 mg/dL Very High: ? >fe=306 mg/dL HDL Cholesterol 52 mg/dL [facility] Comment: Females: High Risk: <50 mg/dL Males: High Risk: <40 mg/dL LDL Cholesterol 122 mg/dL [facility] Comment: Desirable: ? <100 mg/dL Above Desirable: 100-129 mg/dL Borderline High: 130-159 mg/dL High: ?160-189 mg/dL Very High: ? >dy=520 mg/dL Lipid Interpretation See Note [facility] [...] ACC/AHA Guidelines (most recently Ysabel et al. [facility] 12/09/21): For individuals with atherosclerotic cardiovascular disease (ASCVD)or LDL >ej=391 mg/dL, use a high-intensity statin (40-80 mg [...] In Lab Felix Chapa MD CHEMISTRY ORDERABLES [facility] [place] [address] * COLONOSCOPY (07/07/2023 1:39 PM EDT) COLONOSCOPY [facility] Endoscopy Procedure Date: 07/07/2023 1:39 PM ? Patient Name: Indira Roque ? Date of : 1970 ? Age: 53 ? Order #: [id number] ? Instrument Name: [id number] ? Procedure: ? Colonoscopy Indications: ? Abdominal pain, Diarrhea Providers: ? Lashonda Villa MD, [place] ? Systrom, Bouchra Mejia MD: ? Medicines: [...] ? was evaluated using the BBPS ? ([place] Bowel Preparation Scale) ? with scores of: [...] Procedure Code(s): ? --- Professional --- ? 86054, Colonoscopy, flexible; with ? biopsy, single or multiple CPT copyright 2021 [employer]. All rights reserved. The codes documented in this report are preliminary and upon fitter armament review may be revised to meet current [...] Documents on File Type Date Recorded Patient Synthetic Staple Extruder Expl anation Advance Directives and Livin g [...] Status decision made by: Patient Care Teams Secondary School Teacher Relationship Specialty Start Date End Date Polo Pearce PA [address] [place] [address] PCP - General Internal Medicine 06/09/21
--- OUTSIDE RECORDS SUMMARY | 2024-04-10 17:00 | XMS_ITS | Encounter Summary ---
Author Organization [facility] [place] [address] Care Team Providers Care Manager Strategic Partnerships Name Role Phone Polo Pearce Primary Care Provider [phone] Encounter Details Date Type Department Care Team (Late st Contact Info) Description 01/25/2024 Telephone Cardiology at [address] [address] Jaspreet Kinsey MD [facility] [place] [address] Social History Tobacco Use Types Packs/Day Years Used Date Smoking Tobacco: Never Smokeless Tobacco: Never Alcohol Use Standard Drinks/Week Comments Never 0 (1 standard drink = 0.6 oz pur e alcohol) [facility] Utilities Answer Date Recorded In the past 12 months has e [employer], gas, oil, or water [employer] threatened to shut off services in [...] any time in the past 12 m [facility], were you homeless or living in a care home (including now)? No 08/30/2023 IPV Inpatient [...] Telephone Encounter - Gianna Day RN - 01/25/2024 2:12 PM EST Once discharged will request records. * Telephone Encounter - Aide Glass - 01/25/2024 1:33 PM EST Patient called and said she was admitted to [facility] last night and will be there tonight. She was admitted because of CP and, shortness of breath, and nauseas. Please call her @ [phone] documented in this encounter Plan of Treatment Upcoming Encounters Date Type Department Care Team (Late st Contact Info) Description 07/19/2024 3:00 PM EDT Office [place] [address] [place] [address] documented as of this encounter Visit Diagnoses Not on filedocumented in this encounter Care Teams Manager Strategic Partnerships Relationship Specialty Start Date End Date Polo Pearce PA [address] [address] PCP - General Internal Medicine 06/09/21 documented as of this encounter
--- OUTSIDE RECORDS SUMMARY | 2024-04-10 17:00 | XMS_ITS | Encounter Summary ---
Author Organization [facility] [place] [address] Care Team Providers Care System Analyst Name Role Phone Polo Pearce Primary Care Provider [phone] Encounter Details Date Type Department Care Team (Late st Contact Info) Description 02/17/2024 Telephone Cardiology at [address] [address] Jaspreet Kinsey MD [facility] [place] [address] Social History Tobacco Use Types Packs/Day Years Used Date Smoking Tobacco: Never Smokeless Tobacco: Never Alcohol Use Standard Drinks/Week Comments Never 0 (1 standard drink = 0.6 oz pur e alcohol) [facility] Utilities Answer Date Recorded In the past 12 months has e [employer], gas, oil, or water [employer] threatened to shut off services in your [...] any time in the past 12 m [facility], were you homeless or living [...] Telephone Encounter - Trey Tsai RN - 02/17/2024 11:40 AM EST Called and spoke to patient, let her know we will forward this note to Dr. Kinsey, and that he is not in our clinic this week. She is fine waiting until Wednesday for answer, if she has urgent concerns she will either call her PCP or go to ER for evaluation. * Telephone Encounter - Genoveva Glasgow - 02/17/2024 11:01 AM EST Patient called on 02/17/24 @ 10:55 a.m.. She reported she is having very uncomfortable stomach painfrom her hernia. She has been taking Tylenol around the clock. She said the pain and stress is causing her chest to hurt. She said she has had to miss work. She said she saw Dr. Kinsey on 02/10/24. She would like to know what Dr. Kinsey has found out regarding this. She can be reached @ [phone]. documented in this encounter Plan of Treatment Upcoming Encounters Date Type Department Care Team (Late st Contact Info) Description 07/19/2024 3:00 PM EDT Office [place] [address] Mary Reyes, [place] [address] documented as of this encounter Visit Diagnoses Not on filedocumented in this encounter Care Teams System Analyst Relationship Specialty Start Date End Date Polo Pearce PA [address] [place] [address] PCP - General Internal Medicine 06/09/21 documented as of this encounter
--- OUTSIDE RECORDS SUMMARY | 2024-04-10 17:00 | XMS_ITS | Encounter Summary ---
Author Organization [facility] [place] [address] Care Team Providers Care Manager Hospice Name Role Phone Polo Pearce Primary Care Provider [phone] Reason for Visit * Reason Onset Date Comments Advice Only 01/24/2024 Encounter Details Date Type Department Care Team (Late st Contact Info) Description 01/24/2024 Telephone Cardiology at [address] [phone] Osvaldo Padilla APRN [facility] [place] [address] Advice Only Social History Tobacco Use Types [...] any time in the past 12 m [facility], were you homeless or [...] original note were not included. 01/24/2024 Indira Rouqe Initial Contact Date: 01/24/2024 Initial contact time: 4:17 PM Referring Provider: Dr. Rodriguez Patient Location: [facility] Past Medical History: [place] HFpEF Obstructive sleep apnea Obesity Dyslipidemia SVT PAF Endometriosis Asthma Status post SMA stent Presenting Symptoms per OSH: Patient is a 53-year-old with the above-mentioned past medical history who presented to [facility] emergency department after experiencing recurrent chest pain through the weekend that radiated to her jaw.She did take sublingual nitroglycerin with some relief but the pain did not completely resolve. Her troponin levels at [facility] are elevated but not nearly at [...] the patient condition. Osvaldo Padilla APRN Pager [phone] 01/24/2024 Access data collection (if consult) 1. provider completing request: OSVALDO PADILLA APRN 2. Requesting location: [facility] 3. [id number] consult duration: 22 min 4. Total consult [...] 3:00 PM EDT [place] [address] [place] [address] documented as of this encounter Visit Diagnoses Not on filedocumented in this encounter Care Teams Manager Hospice Relationship Specialty Start Date End Date Polo Pearce PA [address] [place] [address] PCP - General Internal Medicine 06/09/21 documented as of this encounter
--- OUTSIDE RECORDS SUMMARY | 2024-04-10 17:00 | XMS_ITS | Encounter Summary ---
Author Organization [facility] [place] [address] Care Team Providers Care Pomologist Name Role Phone Polo Pearce Primary Care Provider [phone] Encounter Details Date Type Department Care Team (Late st Contact Info) Description 02/17/2024 Telephone Cardiology at [address] [address] Jaspreet Kinsey MD [facility] [place] [address] Social History Tobacco Use Types Packs/Day Years Used Date Smoking Tobacco: Never Smokeless Tobacco: Never Alcohol Use Standard Drinks/Week Comments Never 0 (1 standard drink = 0.6 oz pur e alcohol) [facility] Utilities Answer Date Recorded In the past 12 months has e [employer], gas, oil, or water [employer] threatened to shut off services in your [...] Telephone Encounter - Trey Tsai RN - 02/29/2024 10:38 AM EST Records scanned. Patient was started on Isosorbide while at [facility], PCP wants to know if it to be continued.\ Patients next office visit is 07/19/24. * Telephone Encounter - Trey Tsai RN - 02/17/2024 3:12 PM EST Call from Ron, a Nurse at patients PCP office, they were questioning if patient was still supposed to be taking Isosorbide that was ordered for her when she was discharged from [facility]. Let her know that was not on our medication list, patient did not have us add it. Also let her know that we had sent request for records to [facility], have not received records yet. Ron will fax them to us. Let her know we will not be able to review this with Dr. Kinsey until Wednesday. documented in this encounter Plan of Treatment Upcoming Encounters Date Type Department Care Team (Late st Contact Info) Description 07/19/2024 3:00 PM EDT Office Visit [place] [address] [place] [address] documented as of this encounter Visit Diagnoses Not on filedocumented in this encounter Care Teams Pomologist Relationship Specialty Start Date End Date Polo Pearce PA [address] [place] [address] PCP - General Internal Medicine 06/09/21 documented as of this encounter
--- OUTSIDE RECORDS SUMMARY | 2024-04-10 17:00 | XMS_ITS | Encounter Summary ---
Author Organization [facility] [place] [address] Care Team Providers Care Market Research Worker Name Role Phone Polo Pearce Primary Care Provider [phone] Encounter Details Date Type Department Care Team (Late st Contact Info) Description 04/08/2024 Telephone [place] [address] [facility] [place] [address] Social History Tobacco Use Types Packs/Day Years Used Date Smoking Tobacco: Never Smokeless Tobacco: Never Alcohol Use Standard Drinks/Week Comments Never 0 (1 standard drink = 0.6 oz pur e alcohol) [facility] Utilities Answer Date Recorded In the past 12 months has [employer], gas, oil, or water [employer] threatened to shut off services in [...] encounter Miscellaneous Notes * Telephone Encounter - Abner Kapoor MD - 04/08/2024 5:25 PM EST Images from the original note were not included. 04/08/2024 Indira Roque Initial Contact Date: 04/08/2024 Initial contact time: 5:25 PM Referring Provider: Tawny Scales MD Patient Location: [facility] Past Medical History: Chest Pain HFpEF Paroxysmal atrial fibrillation Endometriosis Hiatal hernia Presenting Symptoms per OSH: 54yo woman with PMHx as above who presents to the ED with multiple complaints. Cardiology is consulted due to chest pain, troponin elevation and ECG changes concerning for ACS. She has had several days of URI symptoms including productive cough, shortness of breath. She also complains of chest pain, similar to her previous chronic chest pain. Troponin 320. ECG with inferiorST depressions. Her chest pain is more positional and not related to exertion. She has taken home nitroglycerin with no change to pain and is now refusing additional as she does not feel chest pain symptoms are cardiac. She has history of chest pain with recurrent ED visits and and admissions. Multiple diagnosis of NSTEMI, each time with troponin elevation (previous has been higher to 500 in Apr 2023 and 600 in September2023). She has had coronary angiography Apr 2023 which shows non-obstructive CAD. She has followed up with Dr. Kinsey and Dr. Mcdaniels, and currently ongoing further workup of non-cardiac causes of chest pain. Pertinent Diagnostic Findings: Troponin 320 Past cardiac studies: Echo 08/29/2023: Interpretation Summary Left ventricle is normal in size. There is low normal global systolic function, with focal hypokinesis in the anteroseptum as ascribed. Right ventricle is not well visualized. No hemodynamically significant valve disease. Compared to prior studies over the past 6 months, there has been stable global LV systolic function, with oscillating regional function of the anterior wall. Cath 04/18/2023: Hemodynamics: Left Heart Pressures Resting: Syst Diast [...] (RCA). Conclusions: * Nonobstructive coronary artery disease OSH Interventions: Abx for possible pneumonia Plan: 54yo woman with PMHx as above who presents to the ED with multiple complaints. Cardiology is consulted due to chest pain, troponin elevation and ECG changes concerning for ACS. # Chest Pain # URI # Hx of HFpEF # Paroxysmal Atrial Fibrillation She presents with primarily symptoms of upper respiratory infection, now being treated per ED team.She complains of chest pain, which is similar to her chronic chest pain issues. Previous ischemic workup has been negative for epicardial coronary artery disease, although microvascular disease cannot be ruled out. Her chest pain symptoms remain atypical, with positional component and non-exertional. Troponin is mildly elevated similar to previous (less elevated compared to prior admissions) and non-specific ST depressions. Low current suspicion for ACS - recommend treating other acute medical issues including respiratory infection - no current workup or treatment for ACS currently indicated, continue to closely monitor for symptoms of worsening/persistent chest pain and dynamic ECG changes. - she will follow up with cardiology as previously scheduled Above recommendations were based on my discussion with Dr. Scales; I have not personally interviewed or examined this patient. Advised to call the transfer center back with any changes in the patient condition. Abner Kapoor MD Tissue Inserter PGY4 Pager [phone] documented in this encounter Plan of Treatment Upcoming Encounters Date Type Department Care Team (Late st Contact Info) Description 07/19/2024 3:00 PM EDT Office [place] [address] [place] [address] documented as of this encounter Visit Diagnoses Not on filedocumented in this encounter Care Teams Market Research Worker Relationship Specialty Start Date End Date Polo Pearce PA [address] [place] [address] PCP - General Internal Medicine 06/09/21 documented as of this encounter
--- OUTSIDE RECORDS SUMMARY | 2024-04-10 17:00 | XMS_ITS | Encounter Summary ---
Author Organization [facility] Address [facility] [place] [address] Care Team Providers Care Package Dyeing Machine Operator Name Role Phone Polo Pearce Primary Care Provider [phone] Encounter Details Date Type Department Care Team (Latest Contact Info) Description 02/10/2024 Travel Social History Tobacco Use Types Packs/Day [...] 3:00 PM EDT Office [place] [address] Mary Reyes, [place] [address] documented as of this encounter Visit Diagnoses Not on filedocumented in this encounter Care Teams Package Dyeing Machine Operator Relationship Specialty Start Date End Date Polo Pearce PA [address] [place] [address] PCP - General Internal Medicine 06/09/21 documented as of this encounter
--- OUTSIDE RECORDS SUMMARY | 2024-04-10 17:01 | XMS_ITS | Encounter Summary ---
Author Organization [facility] [place] [address] Care Team Providers Care Human Resources Office Assistant Name Role Phone Polo Pearce Primary Care Provider [phone] Encounter Details Date Type Department Care Team (Latest Contact Info) Description 11/29/2023 Travel Social History Tobacco Use Types Packs/Day Years Used Date Smoking Tobacco: Never Smokeless Tobacco: Never Alcohol Use Standard Drinks/Week Comments Never 0 (1 standard drink = 0.6 oz pur e alcohol) [facility] Utilities Answer Date Recorded [...] in a longterm (including now)? No 08/30/2023 IPV Inpatient Questions [...] 3:00 PM EDT Office [place] [address] Mary Reyes, [place] [address] documented as of this encounter Visit Diagnoses Not on filedocumented in this encounter Care Teams Human Resources Office Assistant Relationship Specialty Start Date End Date Polo Pearce PA [address] [place] [address] PCP - General Internal Medicine 06/09/21 documented as of this encounter
--- OUTSIDE RECORDS SUMMARY | 2024-04-10 17:01 | XMS_ITS | Encounter Summary ---
Author Organization [facility] Address [facility] [place] [address] Care Team Providers Care Sleeping Car Service Attendant Name Role Phone Polo Pearce Primary Care Provider [phone] Encounter Details Date Type Department Care Team (Latest Contact Info) Description 11/22/2023 Travel Social History Tobacco Use Types Packs/Day Years Used Date Smoking Tobacco: Never Smokeless Tobacco: Never Alcohol Use Standard Drinks/Week Comments Never 0 (1 standard drink = 0.6 oz pur e alcohol) [facility] Utilities Answer Date Recorded In [...] 3:00 PM EDT Office Visit [place] [address] Mary Reyes, [place] [address] documented as of this encounter Visit Diagnoses Not on filedocumented in this encounter Care Teams Sleeping Car Service Attendant Relationship Specialty Start Date End Date Polo Pearce PA [address] [place] [address] PCP - General Internal Medicine 06/09/21 documented as of this encounter
--- OUTSIDE RECORDS SUMMARY | 2024-04-10 17:01 | XMS_ITS | Encounter Summary ---
[place] [address] Care Team Providers Care Finished Cloth Checker Name Role Phone Polo Pearce Primary Care Provider [phone] Reason for Visit * Diagnostic Test (Routine) - Closed Specialty Diagnoses / Procedures Referred By Jayant harris Referred To Contact Gastroenterology Diagnoses Altered bowel function ARM for constipation Procedures High Definition Anal Manometry PRG ANORECTAL MANOMETRY PRG RECTAL SESATION TONE & COMPLIANCE TEST [place] [address] [facility] [address] [place] [address] Referral ID Status Reason Start Date Expiration Date V isits Requested Visits Authorized [id number] Closed Consult, Test & Treat 08/25/2023 08/24/2024 1 1 Encounter Details Date Type Department Care Team (Latest Contact Info) Description 10/29/2023 10:15 AM EDT Procedure [place] [address] Altered bowel function Social History Tobacco Use [...] 10:15 AM EDT Re: Indira Roque Reg No:[id number] : 1970 Date of Service: 10/29/2023 ANORECTAL MANOMETRY w/BALLOON EXPULSION Referring provider:Mary Reyes Dear: Dr. Reyes We had the pleasure of performing a high resolution anorectal manometry on your patient in the GI Motility Laboratory at [facility]. CLINICAL HISTORY AND INDICATION As [...] Rectal sensation was hyposensitive. Dustin Arce MD, FRCPC Section of Gastroenterology and Hepatology [facility] [place] [address] V: [phone] F: [phone] CC/EC: [address] [place] [address] documented in this encounter Plan of Treatment Upcoming Encounters Date Type Department Care Team (Late st Contact Info) Description 07/19/2024 3:00 PM EDT Office Visit [place] [address] [place] [address] documented as of this encounter Visit Diagnoses Diagnosis Altered bowel function Other symptoms involving digestive system documented in this encounter Care Teams Finished Cloth Checker Relationship Specialty Start Date End Date Polo Pearce PA [address] [place] [address] PCP - General Internal Medicine 06/09/21 documented as of this encounter
--- OUTSIDE RECORDS SUMMARY | 2024-04-10 17:01 | XMS_ITS | Encounter Summary ---
Author Organization [facility] [place] [address] Care Team Providers Care Dip Filler Name Role Phone Polo Pearce Primary Care Provider [phone] Reason for Visit * Consultation (Routine) - Closed Specialty Diagnoses / Procedures Referred By Jayant t Referred To Contact Gastroenterology Diagnoses Altered bowel function Depression, unspecified depression type Mary Reyes, [place] [facility] [place] [address] Olive Frazier, PhD [facility] [place] [address] Referral ID Status Reason Start Date Expiration Date V isits Requested Visits Authorized [id number] Closed Consult, Test & Treat 08/25/2023 08/24/2024 1 1 Encounter Details Date Type Department Care Team (Late st Contact Info) Description 11/29/2023 1:00 PM EDT Office [place] [address] Selene Browning, PhD [facility] [place] [address] Moderate episode of recurrent major depressive disorder; [...] in a retirement (including now)? No 08/30/2023 IPV Inpatient Questions [...] Browning, PhD - 11/29/2023 1:00 PM EDT [facility] Behavioral Medicine Groups (all virtual) The below groups are designed to help you improve the brain-gut connection and/or manage GI or weight-related concerns. If you'd like to learn more about the brain-gut connection and our services, please visit the [facility] GI Behavioral health website at: [email or web address]. Our hope is that through these classes, [...] please contact your insurance company or the [facility] billing office ([email or web address]). Your insurance company may request a CPT code if you ask about coverage. Most of our groups use the CPT code 17645, though a few use 08208/70341. Feel free to reach out if your insurance company covers one of these codes, but not the other. If you're interested in attending any of these groups, please reach out to our scheduling team via [facility] or phone ([phone]). documented in this encounter Progress Notes * Selene Browning, PhD - 11/29/2023 1:00 PM EDT Images from the original note were not included. [facility] Department of Medicine, Section of Gastroenterology [...] who presents for behavioral health assessment in [facility], Section of Gastroenterology & Hepatology. Today, [...] or medication): No. Local neurologist (Luiza hutchinson [facility] in [place]) prescribes Cymbalta, has been taking >10 years. 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 [...] 3:00 PM EDT Office [place] [address] [place] [address] Scheduled Referrals Name Type Priority Associated Diagnoses Orde r Schedule Amb [facility] Outpatient Referral Routine Altered bowel function Depression, unspecified depression type Ordered: 08/25/2023 documented as of this encounter Visit Diagnoses Diagnosis 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
--- OUTSIDE RECORDS SUMMARY | 2024-04-10 17:01 | XMS_ITS | Encounter Summary ---
Author Organization [facility] [place] [address] Care Team Providers Care Foreclosure Paralegal Name Role Phone Polo Pearce Primary Care Provider [phone] Encounter Details Date Type Department Care Team (Late st Contact Info) Description 11/22/2023 4:40 PM EDT Office Visit Cardiology at [address] [address] Porsha Mcdaniels MD [facility] [place] [address] PAF (paroxysmal atrial fibrillation) Social History Tobacco [...] included. [facility] [place] [address] Referring Provider: Jaspreet Kinsey MD [facility] [place] [address] Reason for Consultation / Chief Complaint: MINOCA [...] MINOCA. She follows with Dr. Kinsey in [place]. She underwent CCTA 09/27 that showed mild disease in her LAD. She also had a cardiac cath in 2019 with normal cors. 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 Moves all extremities without limitation. [...] Porsha Mcdaniels MD Section of Interventional Cardiology [facility] [employer] Facilitatorcnc lathe machinist [facility] of Medicine at [facility] 11/29/2023 documented in this encounter Plan of Treatment Upcoming Encounters Date Type Department Care Team (Late st Contact Info) Description 07/19/2024 3:00 PM EDT Office [place] [address] [place] [address] documented as of this encounter Visit Diagnoses Diagnosis PAF (paroxysmal atrial fibrillation) Atrial fibrillation documented in this encounter Care Teams Foreclosure Paralegal Relationship Specialty Start Date End Date Polo Pearce PA [address] [place] [address] PCP - General Internal Medicine 06/09/21 documented as of this encounter
--- OUTSIDE RECORDS SUMMARY | 2024-04-10 17:01 | XMS_ITS | Encounter Summary ---
Author Organization [facility] Address [facility] [address] Care Team Providers Care Flight Dynamicist Name Role Phone Polo Pearce Primary Care Provider [phone] Encounter Details Date Type Department Care Team (Latest Contact Info) Description 12/22/2023 Travel Social History Tobacco Use Types Packs/Day Years Used Date Smoking Tobacco: Never Smokeless Tobacco: Never Alcohol Use Standard Drinks/Week Comments Never 0 (1 standard drink = 0.6 oz pur e alcohol) [facility] Utilities Answer Date Recorded In the past [...] any time in the past 12 m [facility], were you homeless or living in a half-way (including now)? No 08/30/2023 IPV Inpatient Questions [...] 3:00 PM EDT Office [place] [address] Mary Reyes, [place] [address] documented as of this encounter Visit Diagnoses Not on filedocumented in this encounter Care Teams Flight Dynamicist Relationship Specialty Start Date End Date Polo Pearce PA [address] [place] [address] PCP - General Internal Medicine 06/09/21 documented as of this encounter
--- OUTSIDE RECORDS SUMMARY | 2024-04-10 17:01 | XMS_ITS | Encounter Summary ---
Author Organization [facility] Address [facility] [place] [address] Care Team Providers Care Ladle Pourer Name Role Phone Polo Pearce Primary Care Provider [phone] Encounter Details Date Type Department Care Team (Latest Contact Info) Description 10/28/2023 Travel Social History Tobacco Use Types Packs/Day Years Used Date Smoking Tobacco: Never Smokeless Tobacco: Never Alcohol Use Standard Drinks/Week Comments Never 0 (1 standard drink = 0.6 oz pur e alcohol) [facility] Utilities Answer Date Recorded In [...] in the past 12 m [facility], were you homeless or [...] 3:00 PM EDT Office [place] [address] Mary Reyes, [place] [address] documented as of this encounter Visit Diagnoses Not on filedocumented in this encounter Care Teams Ladle Pourer Relationship Specialty Start Date End Date Polo Pearce PA [address] [place] [address] PCP - General Internal Medicine 06/09/21 documented as of this encounter
--- OUTSIDE RECORDS SUMMARY | 2024-04-10 17:01 | XMS_ITS | Encounter Summary ---
Author Organization [facility] Address [facility] [place] [address] Care Team Providers Care Road Mixer Operator Name Role Phone Polo Pearce Primary Care Provider [phone] Encounter Details Date Type Department Care Team [...] in a residential (including now)? No 08/30/2023 IPV Inpatient Questions [...] 3:00 PM EDT Office [place] [address] Mary Reyes, [place] [address] documented as of this encounter Visit Diagnoses Not on filedocumented in this encounter Care Teams Road Mixer Operator Relationship Specialty Start Date End Date Polo Pearce PA [address] [place] [address] PCP - General Internal Medicine 06/09/21 documented as of this encounter
--- OUTSIDE RECORDS SUMMARY | 2024-04-10 17:01 | XMS_ITS | Encounter Summary ---
Author Organization [facility] [place] [address] Care Team Providers Care Parking Patroller Name Role Phone Polo Pearce Primary Care Provider [phone] Reason for Referral * Diagnostic Test (Routine) - Closed Specialty Diagnoses / Procedures Referred By Jayant harris Referred To Contact Radiology Diagnoses Esophageal dysphagia Jackhammer esophagus Procedures XR Fluoro Esophagram (Double Contrast) [place] [address] [facility] [address] [place] [address] [place] [address] Referral ID Status Reason Start Date Expiration Date V isits Requested Visits Authorized [id number] Closed Specialty Service Requested 12/06/2023 06/04/2025 1 1 Reason for Visit * Diagnostic Test (Routine) - Closed Specialty Diagnoses / Procedures Referred By Jayant harris Referred To Contact Radiology Diagnoses Esophageal dysphagia Jackhammer esophagus Procedures XR Fluoro Esophagram (Double Contrast) [place] [address] [facility] [address] [place] [address] [place] [address] Referral ID Status Reason Start Date Expiration Date V isits Requested Visits Authorized [id number] Closed Specialty Service Requested 12/06/2023 06/04/2025 1 1 Encounter Details Date Type Department Care Team (Latest Contact Info) Description 12/22/2023 7:38 AM EDT - 12/22/2023 11:59 PM EDT Hospital Encounter XRay at [address] [place] [address] [place] [address] Esophageal dysphagia; Jackhammer esophagus Discharge Disposition: Home Social History Tobacco Use Types Packs/Day Years Used Date Smoking Tobacco: Never Smokeless Tobacco: Never Alcohol Use Standard Drinks/Week Comments Never 0 (1 standard drink = 0.6 oz pur e alcohol) [facility] Utilities Answer Date Recorded In the past 12 months has th e [employer], gas, oil, or water [employer] threatened to shut off services in your [...] as needed. fluticasone propionate (FLONASE) 50 mcg/actuation [place], Suspension 1 spray by Each Nare route [...] EDT Office [place] [address] [place] [address] documented as of this encounter Procedures Procedure Name Priority Date/Time Associated Diagnosis Comments XR FLUORO BARIUM SWALLOW (DOUBLE CONTRAST) Routine 12/22/2023 8:18 AM EDT Esophageal dysphagia Jackhammer esophagus documented in this encounter Results * XR Fluoro Esophagram (Double Contrast) (12/22/2023 8:18 AM EDT) WORKSTATION ID [id number] RAD Anatomical Region Laterality Modality N/A Radio [...] questions please contact the health customer care consultant that requested your imaging first. ? Electronically signed by: LUZ ALEXANDRA MD, [facility] ([phone]), at 12/22/2023 9:51 AM Narrative 12/22/2023 9:51 [...] CT chest 04/16/2023, chest radiograph 05/02/2021 FINDINGS: Customer Support Coordinator image: The cardiomediastinal contours, satish, and pulmonary [...] 09/05/2023, CT chest 04/16/2023, chest radiograph05/02/2021 FINDINGS: Customer Support Coordinator image: The cardiomediastinal contours, satish, and pulmonary [...] have questions please contactthe health customer care consultant that requested your imaging first. Electronically signed by: LUZ ALEXANDRA MD, [facility]([phone]), at 12/22/2023 9:51 AM Mary Reyes TOOL POLISHER IMG FLUORO ORDERAB LES documented in this [...] mLs documented in this encounter Care Teams Parking Patroller Relationship Specialty Start Date End Date Polo Pearce PA [address] [place] [address] PCP - General Internal Medicine 06/09/21 documented as of this encounter
--- OUTSIDE RECORDS SUMMARY | 2024-04-10 17:01 | XMS_ITS | Encounter Summary ---
Author Organization Formerly [facility] [place] [address] Care Team Providers Care Time Broker Name Role Phone Polo Pearce Primary Care Provider [phone] Reason for Referral * Diagnostic Test (Routine) - Closed Specialty Diagnoses / Procedures Referred By Jayant harris Referred To Contact Radiology Diagnoses Esophageal dysphagia Jackhammer esophagus Procedures XR Fluoro Esophagram (Double Contrast) [place] [address] [facility] Rad Xray [address] [place] [phone] Referral ID Status Reason Start Date Expiration Date V isits Requested Visits Authorized [id number] Closed Specialty Service Requested 12/06/2023 06/04/2025 1 [...] W NASAL IMPEDENCE ELECTROD [place] [address] [facility] [place] [address] Referral ID Status Reason Start Date Expiration Date V isits Requested Visits Authorized [id number] Closed Test Only 08/25/2023 08/24/2024 1 1 Encounter Details Date Type Department Care Team (Latest Contact Info) Description 10/28/2023 9:00 AM EDT Office [place] [address] Gastroesophageal reflux disease, unspecified whether esophagitis present; [...] MANOMETRY PROCEDURE NOTE Patient: Indira Roque Address: [address] [place] [id number] : 1970 Date of service: 10/28/2023 Indication: [...] relaxation pressure: 6 mmHg (normal <12 mmHg) Hotel Administrative Assistant swallow: Impressions based on [place] Classification v4.0: 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 A clinically relevant diagnosis requires clinically relevant symptoms of dysphagia or non-cardiac chest pain. Without these symptoms, this finding does not have clinical relevance per [place] 4.0. Mechanical obstruction must also be carefully ruled out. *These findings assume that mechanical obstruction has been ruled out. Dustin Arce MD, FRCPC Section of Gastroenterology and Hepatology [facility] [place] [address] V: [phone] F: [phone] CC/EC: JOCY [address] [address] * Dustin Arce MD - 10/28/2023 9:00 AM EDT Catheter-based pH/impedance procedure report Patient: Indira Roque Address: [address] [place] [address] : 1970 Referring provider: Korina Ponce Date [...] the Gamble Consensus. Gut. 2018 Sep; 67(7): 7151-8062. 2) Validation of the Gamble classification for GORD diagnosis: acid exposure time assessed by prolonged wireless pH monitoring in healthy controls and patients with erosive oesophagitis. Gut. 2020. doi10.1136/maqfjq-[id number]. Dustin Arce MD, FRCPC Section of Gastroenterology and Hepatology [facility] [place] [address] V: [phone] F: [phone] CC/EC: JOCY Franco [facility] Jaydon Frost [address] [address] documented in this encounter Miscellaneous Notes * Addendum Note - Korina Ponce APRN - 10/28/2023 9:00 AM EDTAddended by: KORINA PONCE on: 12/06/2023 12:48 PM Modules accepted: Orders documented in this encounter Plan of Treatment Upcoming Encounters Date Type Department Care Team (Late st Contact Info) Description 07/19/2024 3:00 PM EDT [place] [address] [place] [address] documented as of this encounter Results * XR Fluoro Esophagram (Double Contrast) (12/22/2023 8:18 AM EDT) WORKSTATION ID [id number] [facility] Anatomical Region Laterality Modality N/A Radio [...] have questions please contact the health manager critical care unit that requested your imaging first. [...] CT chest 04/16/2023, chest radiograph 05/02/2021 FINDINGS: Telecom Network Manager image: The cardiomediastinal contours, satish, and [...] 09/05/2023, CT chest 04/16/2023, chest radiograph05/02/2021 FINDINGS: Telecom Network Manager image: The cardiomediastinal contours, satish, and [...] who have questions please contactthe health manager critical care unit that requested your imaging first. Korina Ponce APRN IMG FLUORO ORDERAB LES documented in this encounter Visit Diagnoses Diagnosis Gastroesophageal reflux disease, unspecified whether esophagitis present Esophageal dysphagia Dysphagia, pharyngoesophageal phase Jackhammer esophagus Esophageal dysphagia Dysphagia, pharyngoesophageal phase Jackhammer esophagus documented in this encounter Care Teams Time Broker Relationship Specialty Start Date End Date Polo Pearce PA [address] [place] [address] PCP - General Internal Medicine 06/09/21 documented as of this encounter
--- OUTSIDE RECORDS SUMMARY | 2024-04-10 17:01 | XMS_ITS | Encounter Summary ---
Author Organization [facility] [place] [address] Care Team Providers Care Jeeper Operator Name Role Phone Polo Pearce Primary Care Provider [phone] Encounter Details Date Type Department Care Team (Latest Contact Info) Description 01/12/2024 3:00 PM EST Office [place] [address] [place] [address] Gastroesophageal reflux disease, unspecified whether esophagitis present [...] hear from us within 1 week: Clinic [phone] Motility Lab scheduling [phone] Endoscopy scheduling- [phone] Ms. Roque, It was good to see you. Plan is as follows: Recommendations: Diagnosis: Consider repeat Endoscopy with biopsies for EoE Obtain abd/pelvic CT from [facility] Repeat Colonoscopy in 10 years (07/2033) Therapeutics: [...] Talk with PCP about GI symptoms on [facility] Floor [facility] We will proceed with increasing omeprazole to 40 mg daily. Patient should take 30 to 60 minutes before eating. F/U in 6 months. Thanks! Sander, ROM Functional Bowel Disorders: Information Handout for Patients and Primary Care Providers [facility] Gastrointestinal Motility, Esophageal, and Swallowing Disorders [...] what is the impact? 15-20% of general [place] population has IBS or FD or both 2nd most common cause for lost work days (after common cold) in [place] Estimated $30 billion dollar cost to [place] economy per year These disorders can have [...] with immediate onset of symptoms after infection); prison symptoms are expected in most patients however [...] to you primary care provider and/or local world travel counselor and share this document. Treatment of functional [...] - this approach benefits most patients OTC (cqzn-qdq-iaqqlsy) medications can be used for ongoing bothersome symptoms as listed below Your provider (PCP or local Gastroenterology provider or [facility] Gastroenterology provider) may decide to use [...] All-Bran psyllium buds, Metamucil, Konsyl, bulk psyllium ([employer] stores and [employer] stores) Specifically we recommend starting Metamucil or [...] but convincing medical evidence is still lacking Cryd-lwa-gtrrxzx supplements including probiotics are not typically evaluated [...] to decrease antibiotic-associated diarrhea and antibiotic-related infections Wizb-mah-Fwphkru Medications for Functional Gut Disorders Based on [...] a stool softener that is safe for prison usage (no risk of dependency) andthe dosage [...] (GERD) Often a combination of anti-nausea medications (qref-ddi-wbyxspv or prescription) works better thanhigh doses of [...] for misuse/misinterpretation of this information Patient Resources [place] [employer] https://www.gastro.org/practice-guidance/yn-iixodxg-vyftal/ topic/kyaycudxj-oswza-icjlezpz-ibs Badgut.org https://badgut.org/information-centre/q-t-ulaqecmkz-topics/ibs/ AboutIBS.org https://www.aboutibs.org/ Uptodate.com https://www.uptodate.com/contents/jukoxdbdj-ijgca-tvuagxrb-jlhhdo-mvf-coshmh documented in this encounter Progress Notes * [...] discussed the collaborative care model of the [facility] GI motility program. The patient should [...] a local GI currently (if outside the [facility] [place]). Yearly or bi-yearly visits with a [...] as needed. fluticasone propionate (FLONASE) 50 mcg/actuation [place], Suspension 1 spray by Each Nare route [...] Vascular Surgery (07/02/2023); Upper Gi Endoscopy, Biopsy (51012) (N/A, 07/07/2023); and Colonoscopy, Biopsy (86196) (N/A, 07/07/2023). ROS: See interval history. Physical [...] referred to pelvic floor physical therapy at [place] per patient preference. Patient has not yet heard from therapy. Will confirm that referral has been sent. TSH and Celiac Panel unremarkable. #S/P SMA sent #RLQ Pain Patient notes lower RLQ pain. Patient reports it is a constant pain. She is unsure what intensifies the pain. She notes at times the pain wakes her up. Patient recently had an abdominal/pelvic CT at [facility]. Will request the results. Patient should also continue to follow-up with vascular s/p SMA stent Can consider a referral to pain management. Recommendations: Diagnosis: Consider repeat Endoscopy with biopsies for EoE Obtain abd/pelvic CT from [facility] Repeat Colonoscopy in 10 years (07/2033) Therapeutics: [...] Talk with PCP about GI symptoms on [facility] Pelvic Floor PT- [facility] We will proceed with increasing omeprazole to 40 mg daily. Patient should take 30 to 60 minutes before eating. Counselling and Coordinating Care: Time spent reviewing records prior to this encounter on day of appointment: 0 minutes Time spent during encounter with patient including counselin minutes Time spent documenting encounter after office visit: 15 minutes [place] [address] Copy: JOCY Franco DR [address] / [facility] [id number] Please note: Voice recognition technology was utilized to dictate this note. Although I do my best to review notes, minor errors in dictation may be present. documented in this encounter Plan of Treatment Upcoming Encounters Date Type Department Care Team (Late st Contact Info) Description 07/19/2024 3:00 PM EDT Office [place] [address] [place] [address] documented as of this encounter Visit Diagnoses Diagnosis Gastroesophageal reflux disease, unspecified whether esophagitis present documented in this encounter Care Teams Jeeper Operator Relationship Specialty Start Date End Date Polo Pearce PA [address] [place] [address] PCP - General Internal Medicine 06/09/21 documented as of this encounter
--- OUTSIDE RECORDS SUMMARY | 2024-04-10 17:01 | XMS_ITS | Encounter Summary ---
Author Organization [facility] Address [facility] [place] [address] Care Team Providers Care Bread Distributor Name Role Phone Polo Pearce Primary Care Provider [phone] Encounter Details Date Type Department Care Team [...] time in the past 12 m [facility], were you homeless or living [...] 3:00 PM EDT Office [place] [address] Mary Reyes, [place] [address] documented as of this encounter Visit Diagnoses Not on filedocumented in this encounter Care Teams Bread Distributor Relationship Specialty Start Date End Date Polo Pearce PA [address] [place] [address] PCP - General Internal Medicine 06/09/21 documented as of this encounter
--- OUTSIDE RECORDS SUMMARY | 2024-04-10 17:01 | XMS_ITS | Encounter Summary ---
Author Organization [facility] [place] [address] Care Team Providers Care Slurry Blender Name Role Phone Polo Pearce Primary Care Provider [phone] Encounter Details Date Type Department Care Team [...] the past [address] [facility], were you homeless or living in a [...] 3:00 PM EDT Office [place] [address] Mary Reyes, [place] [address] documented as of this encounter Visit Diagnoses Not on filedocumented in this encounter Care Teams Slurry Blender Relationship Specialty Start Date End Date Polo Pearce PA [address] [place] [address] PCP - General Internal Medicine 06/09/21 documented as of this encounter
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
--- OUTSIDE RECORDS SUMMARY | 2024-04-10 17:01 | XMS_ITS | Encounter Summary ---
Author Organization [facility] [place] [address] Care Team Providers Care Pipe Bender Name Role Phone Polo Pearce Primary Care Provider [phone] Encounter Details Date Type Department Care Team (Late st Contact Info) Description 11/02/2023 Telephone [place] [address] Lana Gonzales, RN Social History Tobacco Use Types Packs/Day Years Used Date Smoking Tobacco: Never Smokeless Tobacco: Never Alcohol Use Standard Drinks/Week Comments Never 0 (1 standard drink = 0.6 oz pur e alcohol) [facility] Utilities Answer Date Recorded In the past 12 months has e [employer], gas, oil, or water [employer] threatened to shut off services in [...] in the past 12 m [facility], were you homeless or living in [...] encounter. Pt requests to have PFPT at [place], [place]. * Telephone Encounter - Lana Gonzales [...] 3:00 PM EDT Office [place] [address] [place] [address] documented as of this encounter Visit Diagnoses Not on filedocumented in this encounter Care Teams Pipe Bender Relationship Specialty Start Date End Date Polo Pearce PA [address] [address] PCP - General Internal Medicine 06/09/21 documented as of this encounter
--- OUTSIDE RECORDS SUMMARY | 2024-04-10 17:01 | XMS_ITS | Encounter Summary ---
Author Organization [facility] [place] [address] Care Team Providers Care Tire Retreader Name Role Phone Polo Pearce Primary Care Provider [phone] Encounter Details Date Type Department Care Team (Latest Contact Info) Description 10/29/2023 10:00 AM EDT Clinical [place] [address] Gastroesophageal reflux disease, unspecified whether esophagitis present Social History Tobacco Use Types Packs/Day Years Used Date Smoking Tobacco: Never Smokeless Tobacco: Never Alcohol Use Standard Drinks/Week Comments Never 0 (1 standard drink = 0.6 oz pur e alcohol) [facility] Utilities Answer Date Recorded In the past 12 months has e [employer], gas, oil, or water [employer] threatened to shut off services in [...] 3:00 PM EDT Office [place] [address] [place] [address] documented as of this encounter Visit Diagnoses Diagnosis Gastroesophageal reflux disease, unspecified whether esophagitis present documented in this encounter Care Teams Tire Retreader Relationship Specialty Start Date End Date Polo Pearce PA [address] [place] [address] PCP - General Internal Medicine 06/09/21 documented as of this encounter
--- OUTSIDE RECORDS SUMMARY | 2024-04-10 17:01 | XMS_ITS | Encounter Summary ---
Author Organization [facility] Address [facility] [place] [address] Care Team Providers Care Electronic Design Engineer Name Role Phone Polo Pearce Primary Care Provider [phone] Reason for Visit * Reason Comments Congestive Heart Failure Encounter Details Date Type Department Care Team (Late st Contact Info) Description 10/26/2023 4:00 PM EDT Office Visit Cardiology at [address] [address] Jaspreet Kinsey MD [facility] [place] [address] Heart failure with preserved ejection fraction, unspecified [...] Oral, DAILY fluticasone propionate (FLONASE) 50 mcg/actuation [place], Suspension 1 spray, Each Nare, PRN gabapentin [...] sarcoid. Anterior scar pattern 06/2023: Admission at [facility] TTE with low-normal [...] possibility should still be entertained. Will ask trial consultant contacts/colleagues regarding this prospect - torsemide [...] Center 10/29/2023 10:00 AM MOTILITY LAB 2 [facility] 10/29/2023 10:15 AM MOTILITY LAB 2 [facility] GAS 4T [facility] 11/01/2023 5:00 PM Selene Browning, PhD [facility] GASTRO [facility] 11/22/2023 4:40 PM Porsha Mcdaniels MD [facility] CARD 4A [facility] 12/13/2023 10:[address] [facility] GASTRO [facility] 02/10/2024 1:00 PM Jaspreet Kinsey MD [facility] Jaspreet Kinsey MD documented in this encounter [...] possibility should still be entertained. Will ask trial consultant contacts/colleagues regarding this prospect - torsemide 20 QD (presented with prerenal azotemia on 40 BID) - metolazone 2.5 QD PRN weight gain + increasing dyspnea - Jardiance 10 - aldactone 25 documented in this encounter Plan of Treatment Upcoming Encounters Date Type Department Care Team (Late st Contact Info) Description 07/19/2024 3:00 PM EDT Office [place] [address] [place] [address] documented as of this encounter Visit Diagnoses Diagnosis Heart failure with preserved ejection fraction, unspecified HF chronicity Paroxysmal atrial fibrillation Atrial fibrillation documented in this encounter Care Teams Electronic Design Engineer Relationship Specialty Start Date End Date Polo Pearce PA [address] [place] [address] PCP - General Internal Medicine 06/09/21 documented as of this encounter
--- OUTSIDE RECORDS SUMMARY | 2024-04-10 17:01 | XMS_ITS | Encounter Summary ---
Author Organization [facility] Address [facility] [place] [address] Care Team Providers Care Postal Mail Carrier Name Role Phone Polo Pearce Primary Care Provider [phone] Encounter Details Date Type Department Care Team (Latest Contact Info) Description 01/12/2024 Travel Social History Tobacco Use Types Packs/Day Years Used Date Smoking Tobacco: Never Smokeless Tobacco: Never Alcohol Use Standard Drinks/Week Comments Never 0 (1 standard drink = 0.6 oz pur e alcohol) [facility] Utilities Answer Date Recorded In the [...] 3:00 PM EDT Office [place] [address] Mary Reyes, [place] [address] documented as of this encounter Visit Diagnoses Not on filedocumented in this encounter Care Teams Postal Mail Carrier Relationship Specialty Start Date End Date Polo Pearce PA [address] [place] [address] PCP - General Internal Medicine 06/09/21 documented as of this encounter
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
--- OUTSIDE RECORDS SUMMARY | 2024-04-10 17:02 | XMS_ITS | Encounter Summary ---
[place] [address] Care Team Providers Care Global Chief Experience Officer Name Role Phone Polo Pearce Primary Care Provider [phone] Reason for Visit * Diagnostic Test (Routine) - Closed Specialty Diagnoses / Procedures Referred By Jayant harris Referred To Contact Radiology Diagnoses Nausea without vomiting Early satiety Procedures NM Gastric Emptying Scan Mary Reyes PUTTY WORKER [facility] [place] [address] [place] [address] Referral ID Status Reason Start Date Expiration Date V isits Requested Visits Authorized [id number] Closed Specialty Service Requested 08/25/2023 02/23/2025 1 1 Encounter Details Date Type Department Care Team (Latest Contact Info) Description 10/21/2023 9:03 AM EDT - 10/21/2023 11:59 PM EDT Hospital Encounter [place] [address] [place] [address] Discharge Disposition: Home Social History Tobacco Use Types Packs/Day Years Used Date Smoking Tobacco: Never Smokeless Tobacco: Never Alcohol Use Standard Drinks/Week Comments Never 0 (1 standard drink = 0.6 oz pur e alcohol) [facility] Utilities Answer Date Recorded In [...] as needed. fluticasone propionate (FLONASE) 50 mcg/actuation [place], Suspension 1 spray by Each Nare route [...] 3:00 PM EDT Office [place] [address] [place] [address] documented as of this encounter Procedures Procedure Name Priority Date/Time Associated Diagnosis Comments NM GASTRIC EMPTYING SCAN Routine 10/21/2023 1:54 PM EDT Nausea without vomiting Early satiety documented in this encounter Results * NM Gastric Emptying Scan (10/21/2023 1:54 PM EDT) WORKSTATION ID [id number] [facility] Anatomical Region Laterality Modality Nuclear Medicine [...] by: Humberto Qureshi MD, [facility] ([phone]), at 10/21/2023 5:16 PM Narrative 10/21/2023 5:16 [...] by: Humberto Qureshi MD, [facility]([phone]), at 10/21/2023 5:16 PM Mary Reyes PUTTY WORKER IMG NM ORDERABLES documented in this encounter Visit Diagnoses Not on filedocumented in this encounter Care Teams Global Chief Experience Officer Relationship Specialty Start Date End Date Polo Pearce PA [address] [place] [address] PCP - General Internal Medicine 06/09/21 documented as of this encounter
--- OUTSIDE RECORDS SUMMARY | 2024-04-10 17:02 | XMS_ITS | Encounter Summary ---
Author Organization [facility] Address [facility] [place] [address] Care Team Providers Care Insulator Helper Name Role Phone Polo Pearce Primary Care Provider [phone] Encounter Details Date Type Department Care Team [...] any time in the past 12 m [facility], were you homeless or living in a [...] 3:00 PM EDT Office [place] [address] Mary Reyes, [place] [address] documented as of this encounter Visit Diagnoses Not on filedocumented in this encounter Care Teams Insulator Helper Relationship Specialty Start Date End Date Polo Pearce PA [address] [place] [address] PCP - General Internal Medicine 06/09/21 documented as of this encounter
--- OUTSIDE RECORDS SUMMARY | 2024-04-10 17:02 | XMS_ITS | Encounter Summary ---
[place] [address] Care Team Providers Care Out Of Town Collection Clerk Name Role Phone Polo Pearce Primary Care Provider [phone] Reason for Visit * Diagnostic Test (Routine) - Closed Specialty Diagnoses / Procedures Referred By Jayant harris Referred To Contact Radiology Diagnoses Nausea without vomiting Early satiety Procedures NM Gastric Emptying Scan Mary Reyes APPLICATION DEVELOPER [facility] [place] [address] [place] [address] Referral ID Status Reason Start Date Expiration Date V isits Requested Visits Authorized [id number] Closed Specialty Service Requested 08/25/2023 02/23/2025 1 1 Encounter Details Date Type Department Care Team (Latest Contact Info) Description 10/21/2023 9:03 AM EDT - 10/21/2023 11:59 PM EDT Hospital Encounter [place] [address] [place] [address] Discharge Disposition: Home Social History Tobacco Use [...] as needed. fluticasone propionate (FLONASE) 50 mcg/actuation [place], Suspension 1 spray by Each Nare [...] 3:00 PM EDT Office [place] [address] [place] [address] documented as of this encounter Procedures Procedure Name Priority Date/Time Associated Diagnosis Comments NM GASTRIC EMPTYING SCAN Routine 10/21/2023 1:54 PM EDT Nausea without vomiting Early satiety documented in this encounter Results * NM Gastric Emptying Scan (10/21/2023 1:54 PM EDT) WORKSTATION ID [id number] [facility] Anatomical Region Laterality Modality Nuclear Medicine [...] have questions please contact the health career orientation 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 ? Electronically signed by: Humberto Qureshi MD, [facility] ([phone]), at 10/21/2023 5:16 PM Narrative 10/21/2023 5:16 [...] who have questions please contactthe health career orientation 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 Electronically signed by: Humberto Qureshi MD, [facility]([phone]), at 10/21/2023 5:16 PM Mary Reyes APPLICATION DEVELOPER IMG NM ORDERABLES documented in this encounter Visit Diagnoses Not on filedocumented in this encounter Care Teams Out Of Town Collection Clerk Relationship Specialty Start Date End Date Polo Pearce PA [address] [place] [address] PCP - General Internal Medicine 06/09/21 documented as of this encounter
--- OUTSIDE RECORDS SUMMARY | 2024-04-10 17:02 | XMS_ITS | Encounter Summary ---
Author Organization [facility] [place] [address] Care Team Providers Care Risk Management Intern Name Role Phone Polo Pearce Primary Care Provider [phone] Reason for Referral * Diagnostic Test (Routine) - Pending Review Specialty Diagnoses / Procedures Referred By Contac t Referred To Contact Radiology Procedures Non [place] [address] Referral ID Status Reason Start Date Expiration Date Visits Requested Visits Authorized [id number] Pending Review Specialty Service Requested 09/20/2023 03/22/2025 1 1 * Diagnostic Test (Routine) - Pending Review Specialty Diagnoses / Procedures Referred By Contac t Referred To Contact Radiology Procedures Non [place] [address] Referral ID Status Reason Start Date Expiration Date Visits Requested Visits Authorized [id number] Pending Review Specialty Service Requested 09/20/2023 03/22/2025 1 1 * Diagnostic Test (Routine) - Pending Review Specialty Diagnoses / Procedures Referred By Contac t Referred To Contact Radiology Procedures Non [place] [address] Referral ID Status Reason Start Date Expiration Date Visits Requested Visits Authorized [id number] Pending Review Specialty Service Requested 09/20/2023 03/22/2025 1 1 Encounter Details Date Type Department Care Team (Late st Contact Info) Description 09/20/2023 [place] [address] Social History Tobacco Use Types Packs/Day Years [...] 3:00 PM EDT [place] [address] [place] [address] documented as of this encounter Procedures Procedure Name Priority Date/Time Associated Diagnosis Comments NON EXTERNAL RADIOLOGY EXAM Routine 09/20/2023 10:43 PM [...] filedocumented in this encounter Care Teams Risk Management Intern Relationship Specialty Start Date End Date Polo Pearce PA [address] [place] [address] PCP - General Internal Medicine 06/09/21 documented as of this encounter
--- OUTSIDE RECORDS SUMMARY | 2024-04-10 17:02 | XMS_ITS | Encounter Summary ---
[place] [address] Care Team Providers Care Circuits Engineer Name Role Phone Polo Pearce Primary Care Provider [phone] Reason for Visit * Diagnostic Test (Routine) - Closed Specialty Diagnoses / Procedures Referred By Jayant harris Referred To Contact Radiology Diagnoses Nausea without vomiting Early satiety Procedures NM Gastric Emptying Scan Mary Reyes BLACK LEATHER TRIMMER [place] [address] [place] [address] Referral ID Status Reason Start Date Expiration Date V isits Requested Visits Authorized [id number] Closed Specialty Service Requested 08/25/2023 02/23/2025 1 1 Encounter Details Date Type Department Care Team (Latest Contact Info) Description 10/21/2023 9:03 AM EDT - 10/21/2023 11:59 PM EDT Hospital En[place] [address] [place] [address] Discharge Disposition: Home Social History Tobacco Use [...] as needed. fluticasone propionate (FLONASE) 50 mcg/actuation [place], Suspension 1 spray by Each Nare route [...] 3:00 PM EDT Office Visit [place] [address] [place] [address] documented as of this encounter Procedures Procedure Name Priority Date/Time Associated Diagnosis Comments NM GASTRIC EMPTYING SCAN Routine 10/21/2023 1:54 PM EDT Nausea without vomiting Early satiety documented in this encounter Results * NM Gastric Emptying Scan (10/21/2023 1:54 PM EDT) WORKSTATION ID [id number] [facility] Anatomical Region Laterality [...] have questions please contact the health career placement services counselor that requested your imaging first. ? Electronically signed by: Humberto Qureshi MD, [facility] ([phone]), at 10/21/2023 5:16 PM Narrative 10/21/2023 5:16 [...] who have questions please contactthe health career placement services counselor that requested your imaging first. Mary Reyes BLACK LEATHER TRIMMER IMG NM ORDERABLES documented in this encounter Visit Diagnoses Not on filedocumented in this encounter Care Teams Circuits Engineer Relationship Specialty Start Date End Date Polo Pearce PA [address] [place] [address] PCP - General Internal Medicine 06/09/21 documented as of this encounter
--- OUTSIDE RECORDS SUMMARY | 2024-04-10 17:02 | XMS_ITS | Encounter Summary ---
[place] [address] Care Team Providers Care Insecticide Mixer Name Role Phone Polo Pearce Primary Care Provider [phone] Reason for Referral * Diagnostic Test (Routine) - Pending Review Specialty Diagnoses / Procedures Referred By Jayant harris Referred To Contact Diagnoses Mesenteric ischemia Procedures Duplex Study Visceral Arteries, Comp Thiago Way MD [facility] [place] [address] [facility] Vascular Lab [address] [address] Referral ID Status Reason Start Date Expiration Date Visits Requested Visits Authorized [id number] Pending Review Specialty Service Requested 10/08/2023 10/07/2024 1 1 Encounter Details Date Type Department Care Team (Late st Contact Info) Description 10/08/2023 9:30 AM EDT Office [place] [address] MD [facility] [place] [address] Mesenteric ischemia (Primary Dx) Social History Tobacco [...] bloating who underwent an SMA stent with nm back in July 01. Upon returning today [...] , Rfl: fluticasone propionate (FLONASE) 50 mcg/actuation [place], Suspension, 1 spray by Each Nare route [...] Text Report Department: Vascular Surgery Lab Patient: [id number] (LOIDA ROQUE) CPT: 06232 Referring Physician: HARJEET PICKENS Phone: Indications: s/p [...] within mesenteric artery stents may differ from [place] arteries, with thresholds for diagnosis of significant stenosis likely being somewhat higher in stented arteries than [place].% To date, there is no evidence based consensus of stent velocity criteria. Therefore, the current interpretation is based on [place] artery thresholds. Previous Celiac/Mesenteric Studies: Date SMA PSV EDV Celiac PSV EDV 427 91 230 27 1158/04/29 289 27 814 83 2425/05/28 316 39 100 22 Current Exam 289 [...] 3:00 PM EDT Office [place] [address] [place] [address] documented as of this encounter Visit Diagnoses Diagnosis Mesenteric ischemia- Primary Unspecified vascular insufficiency of intestine documented in this encounter Care Teams Insecticide Mixer Relationship Specialty Start Date End Date Polo Pearce PA [address] [place] [address] PCP - General Internal Medicine 06/09/21 documented as of this encounter
--- OUTSIDE RECORDS SUMMARY | 2024-04-10 17:02 | XMS_ITS | Encounter Summary ---
Author Organization [facility] [place] [address] Care Team Providers Care Customer Care Consultant Name Role Phone Polo Pearce Primary Care Provider [phone] Encounter Details Date Type Department Care Team (Late st Contact Info) Description 09/20/2023 [place] [address] Vito Pearce MD [facility] [address] Social History Tobacco Use Types Packs/Day Years Used Date Smoking Tobacco: Never Smokeless Tobacco: Never Alcohol Use Standard Drinks/Week Comments Never 0 (1 standard drink = 0.6 oz pur e alcohol) [facility] Utilities Answer Date Recorded In the past 12 months has e [employer], gas, oil, or water [employer] threatened to shut off services in your [...] in the past 12 m [facility], were you homeless or living [...] Referring provider: Jasen Montes MD Patient location: [facility] Past medical history: Microvascular disease; nonobstructive [...] 3:00 PM EDT Office [place] [address] [place] [address] documented as of this encounter Visit Diagnoses Not on filedocumented in this encounter Care Teams Customer Care Consultant Relationship Specialty Start Date End Date Polo Pearce PA [address] [place] [address] PCP - General Internal Medicine 06/09/21 documented as of this encounter
--- OUTSIDE RECORDS SUMMARY | 2024-04-10 17:02 | XMS_ITS | Encounter Summary ---
[place] [address] Care Team Providers Care Pulmonary Physician Name Role Phone Polo Pearce Primary Care Provider [phone] Reason for Referral * Diagnostic Test (Routine) - Closed Specialty Diagnoses / Procedures Referred By Contac t Referred To Contact Radiology Diagnoses Nausea without vomiting Early satiety Procedures NM Gastric Emptying Scan [place] [address] [place] [address] Referral ID Status Reason Start Date Expiration Date V isits Requested Visits Authorized [id number] Closed Specialty Service Requested 08/25/2023 02/23/2025 1 1 Reason for Visit * Diagnostic Test (Routine) - Closed Specialty Diagnoses / Procedures Referred By Contac t Referred To Contact Radiology Diagnoses Nausea without vomiting Early satiety Procedures NM Gastric Emptying Scan Mary [place] [address] [place] [address] Referral ID Status Reason Start Date Expiration Date V isits Requested Visits Authorized [id number] Closed Specialty Service Requested 08/25/2023 02/23/2025 1 1 Encounter Details Date Type Department Care Team (Latest Contact Info) Description 10/21/2023 9:02 AM EDT Hospital En[place] [address] Mary Reyes TICKET COLLECTOR [facility] [address] Nausea without vomiting; Early satiety Discharge Disposition: Home Social History Tobacco Use Types Packs/Day Years Used Date Smoking Tobacco: Never Smokeless Tobacco: Never Alcohol Use Standard Drinks/Week Comments Never 0 (1 standard drink = 0.6 oz pur e alcohol) [facility] Utilities Answer Date Recorded In the past 12 months has e [employer], gas, oil, or water [employer] threatened to shut off services in your [...] time in the past 12 m [facility], were you homeless or living in a [...] as needed. fluticasone propionate (FLONASE) 50 mcg/actuation [place], Suspension 1 spray by Each Nare route [...] 3:00 PM EDT Office Visit Gastroenterology [place] [address] [place] [address] documented as of this encounter Procedures Procedure Name Priority Date/Time Associated Diagnosis Comments NM GASTRIC EMPTYING SCAN Routine 10/21/2023 1:54 PM EDT Nausea without vomiting Early satiety documented in this encounter Results * NM Gastric Emptying Scan (10/21/2023 1:54 PM EDT) WORKSTATION ID [id number] [facility] Anatomical Region Laterality Modality Nuclear Medicine Impressions [...] ? Electronically signed by: Humberto Qureshi MD, [facility] ([phone]), at 10/21/2023 5:16 PM Narrative 10/21/2023 5:16 [...] nurse specialist that requested your imaging first. Electronically signed by: Humberto Qureshi MD, [facility]([phone]), at 10/21/2023 5:16 PM Mary Reyes TICKET COLLECTOR IMG NM ORDERABLES documented in this encounter [...] mCi documented in this encounter Care Teams Pulmonary Physician Relationship Specialty Start Date End Date Polo Pearce PA [address] [place] [address] PCP - General Internal Medicine 06/09/21 documented as of this encounter
--- OUTSIDE RECORDS SUMMARY | 2024-04-10 17:02 | XMS_ITS | Encounter Summary ---
[place] [address] Care Team Providers Care Alteration Tailor Apprentice Name Role Phone Polo Pearce Primary Care Provider [phone] Reason for Visit * Diagnostic Test (Routine) - Closed Specialty Diagnoses / Procedures Referred By Jayant harris Referred To Contact Radiology Diagnoses Nausea without vomiting Early satiety Procedures NM Gastric Emptying Scan Mary Reyes DIRECT CARE PROFESSIONAL [facility] [place] [address] [place] [address] Referral ID Status Reason Start Date Expiration Date V isits Requested Visits Authorized [id number] Closed Specialty Service Requested 08/25/2023 02/23/2025 1 1 Encounter Details Date Type Department Care Team (Latest Contact Info) Description 10/21/2023 9:03 AM EDT - 10/21/2023 11:59 PM EDT Hospital Encounter [place] [address] [place] [address] Discharge Disposition: Home Social History Tobacco Use Types Packs/Day Years Used Date Smoking Tobacco: Never Smokeless Tobacco: Never Alcohol Use Standard Drinks/Week Comments Never 0 (1 standard drink = 0.6 oz pur e alcohol) [facility] Utilities Answer Date Recorded In [...] as needed. fluticasone propionate (FLONASE) 50 mcg/actuation [place], Suspension 1 spray by Each Nare route [...] 3:00 PM EDT Office Visit [place] [address] [place] [address] documented as of this encounter Procedures Procedure Name Priority Date/Time Associated Diagnosis Comments NM GASTRIC EMPTYING SCAN Routine 10/21/2023 1:54 PM EDT Nausea without vomiting Early satiety documented in this encounter Results * NM Gastric Emptying Scan (10/21/2023 1:54 PM EDT) WORKSTATION ID [id number] [facility] Anatomical Region Laterality Modality Nuclear Medicine [...] who have questions please contact the health property caretaker that requested your imaging first. ? [...] patients who have questions please contactthe health property caretaker that requested your imaging first. Mary Reyes DIRECT CARE PROFESSIONAL IMG NM ORDERABLES documented in this encounter Visit Diagnoses Not on filedocumented in this encounter Care Teams Alteration Tailor Apprentice Relationship Specialty Start Date End Date Polo Pearce PA [address] [place] [address] PCP - General Internal Medicine 06/09/21 documented as of this encounter
--- OUTSIDE RECORDS SUMMARY | 2024-04-10 17:02 | XMS_ITS | Encounter Summary ---
Author Organization [facility] [place] [address] Care Team Providers Care Consulting Technical Manager Name Role Phone Polo Pearce Primary Care Provider [phone] Reason for Visit * Diagnostic Test (Routine) - Closed Specialty Diagnoses / Procedures Referred By Jayant harris Referred To Contact Diagnoses Mesenteric ischemia Procedures Duplex Study Visceral Arteries, Colette Boucher APRN [facility] [place] [address] [facility] Vascular Lab [address] [address] Referral ID Status Reason Start Date Expiration Date V isits Requested Visits Authorized [id number] Closed Specialty Service Requested 06/28/2023 06/27/2024 1 1 Encounter Details Date Type Department Care Team (Late st Contact Info) Description 10/08/2023 8:30 AM EDT Tech [place] [address] [place] Mesenteric ischemia Social History Tobacco Use Types Packs/Day Years Used Date Smoking Tobacco: Never Smokeless Tobacco: Never Alcohol Use Standard Drinks/Week Comments Never 0 (1 standard drink = 0.6 oz pur e alcohol) [facility] Utilities Answer Date Recorded In the past 12 months has [employer], oil, or water [employer] threatened to shut off services in your [...] any time in the past 12 m [facility], were you homeless or living [...] 3:00 PM EDT Office [place] [address] [place] [address] documented as of this encounter Procedures Procedure Name Priority Date/Time Associated Diagnosis Comments MESENTERIC COMPLETE Routine 10/08/2023 8 :22 AM EDT Mesenteric ischemia documented in this encounter Results * Duplex Study Visceral Arteries, Comp (10/08/2023 8:22 AM EDT) VB Text Report Department: Vascular Surgery Lab Patient: [id number] (LOIDA ROQUE) CPT: [id number] Referring Physician: JUDITH PICKENS ?? Phone: Indications: [...] within mesenteric artery stents may differ from [place] arteries, with thresholds for diagnosis of significant stenosis likely being somewhat higher in stented arteries than [place].% To date, there is no evidence based consensus of stent velocity criteria. Therefore, the current interpretation is based on [place] artery thresholds. Previous Celiac/Mesenteric Studies: Date ? [...] [facility] 10/08/2023 8:22 AM EDT Judith Pickens HOME SECURITY ALARM INSTALLER VASCULAR ORDERABLES [facility] documented in this encounter Visit Diagnoses Diagnosis Mesenteric ischemia Unspecified vascular insufficiency of intestine documented in this encounter Care Teams Consulting Technical Manager Relationship Specialty Start Date End Date Polo Pearce PA [address] [place] [address] PCP - General Internal Medicine 06/09/21 documented as of this encounter
--- OUTSIDE RECORDS SUMMARY | 2024-04-10 17:03 | XMS_ITS | Encounter Summary ---
Author [place] [address] Care Team Providers Care Die Assembler Name Role Phone Polo Pearce Primary Care Provider [phone] Reason for Referral * Diagnostic Test (Routine) - Pending Review Specialty Diagnoses / Procedures Referred By Contac t Referred To Contact Cardiology Diagnoses Chest pain, unspecified type Procedures Nuclear Pharmacologic Stress Cardiology (PET CT Mobile) Porsha Mcdainels MD [facility] [place] [address] [facility] [place] [address] Referral ID Status Reason Start Date Expiration Date Visits Requested Visits Authorized [id number] Pending Review Specialty Service Requested 07/29/2023 07/28/2024 1 1 Reason for Visit * Diagnostic Test (Routine) - Pending Review Specialty Diagnoses / Procedures Referred By Contac t Referred To Contact Cardiology Diagnoses Chest pain, unspecified type Procedures Nuclear Pharmacologic Stress Cardiology (PET CT Mobile) Porsha Mcdaniels MD [facility] [place] [address] [facility] [place] [address] Referral ID Status Reason Start Date Expiration Date Visits Requested Visits Authorized [id number] Pending Review Specialty Service Requested 07/29/2023 07/28/2024 1 1 Encounter Details Date Type Department Care Team (Latest Contact Info) Description 08/17/2023 11:53 AM EDT - 08/17/2023 11:59 PM EDT Hospital Encounter [place] [phone] Porsha Mcdaniels MD [facility] [place] [address] Chest pain, unspecified type Discharge Disposition: Home [...] as needed. fluticasone propionate (FLONASE) 50 mcg/actuation [place], Suspension 1 spray by Each Nare route [...] 3:00 PM EDT Office [place] [address] [place] [address] documented as of this encounter Procedures Procedure [...] type documented in this encounter Care Teams Die Assembler Relationship Specialty Start Date End Date Polo Pearce PA [address] [place] [address] PCP - General Internal Medicine 06/09/21 documented as of this encounter
--- OUTSIDE RECORDS SUMMARY | 2024-04-10 17:03 | XMS_ITS | Encounter Summary ---
Author Organization [facility] Address [facility] [place] [address] Care Team Providers Care Diamond Die Polisher Name Role Phone Polo Pearce Primary Care Provider [phone] Reason for Visit * Reason Comments Congestive Heart Failure Atrial Fibrillation Encounter Details Date Type Department Care Team (Late st Contact Info) Description 07/26/2023 3:20 PM EDT Office Visit Cardiology at [address] [address] Jaspreet Kinsey MD [facility] [place] [address] Heart failure with preserved ejection fraction, unspecified HF chronicity; Paroxysmal atrial fibrillation; SVT (supraventricular tachycardia); Chest pain, unspecified type Social History Tobacco Use Types Packs/Day Years Used Date Smoking Tobacco: Never Smokeless Tobacco: Never Alcohol Use Standard Drinks/Week Comments Never 0 (1 standard drink = 0.6 oz pur e alcohol) [facility] Utilities Answer Date Recorded In the past 12 months has [employer], gas, oil, or water company threatened [...] Failure Atrial Fibrillation HPI Last seen by ms 05/2023, at which time the comprehensive cardiac [...] Oral, DAILY fluticasone propionate (FLONASE) 50 mcg/actuation [place], Suspension 1 spray, Each Nare, PRN gabapentin [...] preserved ejection fraction 05/2021: subacute, presented to [facility] with RUQ pain, weight gain, [...] 3:00 PM EDT Office Visit [place] [address] [place] [address] documented as of this encounter Visit Diagnoses Diagnosis Heart failure with preserved ejection fraction, unspecified HF chronicity Paroxysmal atrial fibrillation Atrial fibrillation SVT (supraventricular tachycardia) Other specified cardiac dysrhythmias Chest pain, unspecified type documented in this encounter Care Teams Diamond Die Polisher Relationship Specialty Start Date End Date Polo Pearce PA [address] [address] PCP - General Internal Medicine 06/09/21 documented as of this encounter
--- OUTSIDE RECORDS SUMMARY | 2024-04-10 17:03 | XMS_ITS | Encounter Summary ---
Author Organization [facility] Address [facility] [place] [address] Care Team Providers Care Cardiology Clinical Consultant Name Role Phone Polo Pearce Primary Care Provider [phone] Encounter Details Date Type Department Care Team [...] th e electric, gas, oil, or water [employer] threatened to shut off services in your [...] 3:00 PM EDT Office [place] [address] [place] [address] documented as of this encounter Visit Diagnoses Not on filedocumented in this encounter Care Teams Cardiology Clinical Consultant Relationship Specialty Start Date End Date Polo Pearce PA [address] [place] [address] PCP - General Internal Medicine 06/09/21 documented as of this encounter
--- OUTSIDE RECORDS SUMMARY | 2024-04-10 17:03 | XMS_ITS | Encounter Summary ---
Author Organization [facility] [place] [address] Care Team Providers Care Skilled Trades Teacher Name Role Phone Polo Pearce Primary Care Provider [phone] Reason for Referral * Diagnostic Test (Routine) - Closed Specialty Diagnoses / Procedures Referred By Contac t Referred To Contact Radiology Diagnoses Chest pain, unspecified type Procedures NM PET CT Cardiac Pharmacologic Stress CT Component Porsha Mcdaniels MD [facility] [place] [address] [place] [address] Referral ID Status Reason Start Date Expiration Date V isits Requested Visits Authorized [id number] Closed Specialty Service Requested 08/03/2023 10/01/2023 1 1 * Diagnostic Test (Routine) - Closed Specialty Diagnoses / Procedures Referred By Contac t Referred To Contact Radiology Diagnoses Chest pain, unspecified type Procedures NM PET CT Cardiac Pharmacologic Stress and Rest Porsha Mcdaniels MD [facility] [place] [address] [place] [address] Referral ID Status Reason Start Date Expiration Date V isits Requested Visits Authorized [id number] Closed Specialty Service Requested 08/03/2023 10/01/2023 1 1 * Diagnostic Test (Routine) - Pending Review Specialty Diagnoses / Procedures Referred By Contac t Referred To Contact Cardiology Diagnoses Chest pain, unspecified type Procedures Nuclear Pharmacologic Stress Cardiology (PET CT Mobile) Porsha Mcdaniels MD [facility] [place] [address] [facility] [place] [address] Referral ID Status Reason Start Date Expiration Date Visits Requested Visits Authorized [id number] Pending Review Specialty Service Requested 07/29/2023 07/28/2024 1 1 Reason for Visit * Consultation (Routine) - Closed Specialty Diagnoses / Procedures Referred By Jayant t Referred To Contact Cardiology Diagnoses Heart failure with preserved ejection fraction, unspecified HF chronicity [place]A. thorough evaluation performed to date. Jaspreet Kinsey MD [facility] [place] [address] Porsha Mcdaniels MD [facility] [place] [address] Referral ID Status Reason Start Date Expiration Date V isits Requested Visits Authorized [id number] Closed Consult, Test & Treat 06/09/2023 06/08/2024 1 1 Encounter Details Date Type Department Care Team (Late st Contact Info) Description 07/29/2023 8:00 AM EDT Office Visit Cardiology at [address] [address] Porsha Mcdaniels MD [facility] [place] [address] Chest pain, unspecified type Social History Tobacco [...] from the original note were not included. [facility] [place] [address] Referring Provider: Jaspreet Kinsey MD [facility] [address] Reason for Consultation / Chief Complaint: [place] [...] [place]. She follows with Dr. Kinsey in [place]. She underwent CCTA 09/27 that showed mild disease in her LAD. She also had a cardiac cath in 2019 with normal cors. [facility] due to exertional chest [...] and no concomitant arrhythmias Was admitted to [facility] early last month for malaise, [...] , Rfl: fluticasone propionate (FLONASE) 50 mcg/actuation [place], Suspension, 1 spray by Each Nare route [...] 2+ radial pulse LUE: 2+ radial pulse REHAB SPECIALIST: Normal mentation. Moves all extremities without limitation. [...] STRESS to evaluate for microvascular dysfunction Porsha Mcdainels MD Section of Interventional Cardiology [facility] Investigator Utility Bill Complaintsbusiness executive [facility] 07/29/2023 documented in this encounter Plan of Treatment Upcoming Encounters Date Type Department Care Team (Late st Contact Info) Description 07/19/2024 3:00 PM EDT Office [place] [phone] [place] [address] documented as of this encounter Procedures Procedure Name Priority Date/Time Associated Diagnosis Comments EKG 12-LEAD Routine 07/29/2023 8:47 AM EDT Chest pain, unspecified type documented in this encounter Results * NM PET CT Cardiac Pharmacologic Stress CT Component (08/17/2023 2:38 PM EDT) WORKSTATION ID [id number] RAD Anatomical Region Laterality Modality Positron Emissio [...] signed by: Clay Stanton MD, [facility] ([phone]), at 08/18/2023 2:49 PM Narrative 08/18/2023 2:49 [...] PET CT CARDIAC PHARMACOLOGIC STRESS AND REST, [place] PET CTCARDIAC PHARMACOLOGIC STRESS CT COMPONENT CLINICAL [...] Coronary calcifications. Bilateral ground glass opacities are [id number] IMPRESSION Moderate-sized scar in the apical septum [...] signed by: Clay Stanton MD, [facility]([phone]), at 08/18/2023 2:49 PM Porsha Mcfarlane MD IMG PET ORDERABLES * NM PET CT Cardiac Pharmacologic Stress and Rest (08/17/2023 2:38 PM EDT) WORKSTATION ID [id number] [facility] Anatomical Region Laterality Modality Positron Emissio n [...] signed by: Clay Stanton MD, [facility] ([phone]), at 08/18/2023 2:49 PM Narrative 08/18/2023 2:49 [...] Coronary calcifications. Bilateral ground glass opacities are [id number] Procedure Note Clay Stanton MD - 08/18/2023 [...] Coronary calcifications. Bilateral ground glass opacities are [id number] IMPRESSION Moderate-sized scar in the apical septum [...] signed by: Clay Stanton MD, [facility]([phone]), at 08/18/2023 2:49 PM Porsha Mcfarlane MD [...] (Bezet) 418 ms MUSE SYSTEM Calculated P Junction 6 degrees MUSE SYSTEM Calculated R Junction 34 degrees MUSE SYSTEM Calculated T Junction -73 degrees MUSE SYSTEM INTERPRETATION Sinus bradycardia [...] type documented in this encounter Care Teams Skilled Trades Teacher Relationship Specialty Start Date End Date Polo Pearce PA [address] [place] [address] PCP - General Internal Medicine 06/09/21 documented as of this encounter
--- OUTSIDE RECORDS SUMMARY | 2024-04-10 17:03 | XMS_ITS | Encounter Summary ---
Author Organization [facility] [place] [address] Care Team Providers Care Senior Information Developer Name Role Phone Polo Pearce Primary Care Provider [phone] Encounter Details Date Type Department Care Team (Late st Contact Info) Description 07/13/2023 Telephone Cardiology at [address] [phone] Sydney Gamez RN Social History Tobacco Use Types Packs/Day Years Used Date Smoking Tobacco: Never Smokeless Tobacco: Never Alcohol Use Standard Drinks/Week Comments Never 0 (1 standard drink = 0.6 oz pur e alcohol) [facility] Utilities Answer Date Recorded In the past 12 months has e [employer], gas, oil, or water [employer] threatened to shut off services in your [...] like the letter emailed to her at [email or web address] when completed. Will forward to her providers [...] appointments: During 8am-5pm Wednesday through Wednesday call [phone] to speak with a nurse in the cardiology clinic All other times call [phone] and ask to speak to the commercial center manager ammunition assembly laborer. Return to work: One week Driving: No driving for 48 hours after catheterization. Follow up Appointments: PCP JOCY Franco [phone] 11:30am on July 19. Cardiology office will [...] 3:00 PM EDT Office [place] [address] Mary Reyes, FOR[place] [address] documented as of this encounter Visit Diagnoses Not on filedocumented in this encounter Care Teams Senior Information Developer Relationship Specialty Start Date End Date Polo Pearce PA [address] [place] [address] PCP - General Internal Medicine 06/09/21 documented as of this encounter
--- OUTSIDE RECORDS SUMMARY | 2024-04-10 17:03 | XMS_ITS | Encounter Summary ---
[place] [address] Care Team Providers Care Bearing Inspector Name Role Phone Polo Pearce Primary Care Provider [phone] Reason for Visit * Auth/Cert (Routine) Specialty Diagnoses / Procedures Referred By Contac t Referred To Contact Diagnoses NSTEMI (non-ST elevated myocardial infarction) NSTEMI Procedures EMERGENCY MICHELLEI [place] [address] [facility] Referral ID Status Reason Start Date Expiration Date Visits Re quested Visits Authorized [id number] 1 1 Encounter Details Date Type Department Care Team (Late st Contact Info) Description 08/25/2023 12:55 PM EDT Laboratory Appointment Lab [address] [place] [address] Social History Tobacco Use Types Packs/Day Years Used Date Smoking Tobacco: Never Smokeless Tobacco: Never Alcohol Use Standard Drinks/Week Comments Never 0 (1 standard drink = 0.6 oz pur e alcohol) [facility] Utilities Answer Date Recorded In [...] 3:00 PM EDT Office [place] [address] [place] [address] documented as of this encounter Visit Diagnoses Not on filedocumented in this encounter Care Teams Bearing Inspector Relationship Specialty Start Date End Date Polo Pearce PA [address] [place] [address] PCP - General Internal Medicine 06/09/21 documented as of this encounter
--- OUTSIDE RECORDS SUMMARY | 2024-04-10 17:03 | XMS_ITS | Encounter Summary ---
Author Organization [facility] Address [facility] [place] [address] Care Team Providers Care Precision Agriculture Technician Name Role Phone Polo Pearce Primary Care Provider [phone] Encounter Details Date Type Department Care Team [...] th e electric, gas, oil, or water [employer] threatened to shut off services in your [...] 3:00 PM EDT Office [place] [address] [place] [address] documented as of this encounter Visit Diagnoses Not on filedocumented in this encounter Care Teams Precision Agriculture Technician Relationship Specialty Start Date End Date Polo Pearce PA [address] [place] [address] PCP - General Internal Medicine 06/09/21 documented as of this encounter
--- OUTSIDE RECORDS SUMMARY | 2024-04-10 17:03 | XMS_ITS | Encounter Summary ---
Author Organization [facility] [place] [address] Care Team Providers Care Tube Machine Operator Name Role Phone Polo Pearce Primary Care Provider [phone] Encounter Details Date Type Department Care Team (Late st Contact Info) Description 08/28/2023 Telephone [place] [phone] [place] [address] Social History Tobacco Use Types Packs/Day Years Used Date Smoking Tobacco: Never Smokeless Tobacco: Never Alcohol Use Standard Drinks/Week Comments Never 0 (1 standard drink = 0.6 oz pur e alcohol) [facility] Utilities Answer Date Recorded In the past 12 months has e [employer], gas, oil, or water [employer] threatened to shut off services in your [...] a slight decrease in LV systolic function. [facility] 04/2023 Coronary Angiography: Dominance: Right Left [...] 3:00 PM EDT Office [place] [address] [place] [address] documented as of this encounter Visit Diagnoses Not on filedocumented in this encounter Care Teams Tube Machine Operator Relationship Specialty Start Date End Date Polo Pearce PA [address] [facility] [address] [place] [address] PCP - General Internal Medicine 06/09/21 documented as of this encounter
--- OUTSIDE RECORDS SUMMARY | 2024-04-10 17:03 | XMS_ITS | Encounter Summary ---
[place] [address] Care Team Providers Care Tax Expert Name Role Phone Polo Pearce Primary Care Provider [phone] Reason for Referral * Consultation (Routine) - Closed Specialty Diagnoses / Procedures Referred By Jayant t Referred To Contact Cardiology Diagnoses NSTEMI (non-ST elevated myocardial infarction) Lloyd Keating MD [facility] [place] [place] [address] [address] [place] [address] Referral ID Status Reason Start Date Expiration Date V isits Requested Visits Authorized [id number] Closed Consult, Test & Treat Non PCP 09/10/2023 2024 36 36 Reason for Visit * Auth/Cert (Routine) Specialty Diagnoses / Procedures Referred By Contac t Referred To Contact Diagnoses NSTEMI (non-ST elevated myocardial infarction) NSTEMI Procedures EMERGENCY MICHELLEI Archie Mcmanus MD [facility] [place] [address] [facility] Referral ID Status Reason Start Date Expiration Date Visits Re quested Visits Authorized [id number] 1 1 Encounter Details Date Type Department Care Team (Latest Contact Info) Description 08/28/2023 8:27 PM EDT - 09/10/2023 5:31 PM EDT Hospital Encounter Heart and Vascular Unit Level 3 Wing B at [place] [phone] Kia Angelo MD [facility] [place] [address] [place] [address] Eufemia Copeland MD [facility] [place] [address] [place] [address] Samantha Broussard MD Kussaga, Frank [place], [place] [address] Paresthesia of hand, bilateral; SVT (supraventricular tachycardia); [...] has e electric, gas, oil, or water [employer] threatened to shut off services in your [...] time in the past [address] [facility], were you homeless or living in a [...] Loida Madrigal Patient Age: 53 y.o. Language: Guamanian Race: White Ethnicity: Not nor Admit date: [facility] [place] . Issues afterhours and on weekends [...] 09/05/2023 4:25 PM) Result Value WORKSTATION ID [id number] Narrative EXAMINATION: CTA/CT ABDOMEN AND PELVIS W [...] have questions please contact the health health and social care 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 08/29/23 Interpretation [...] treatment for possible ACS, and transfer to [facility] for further management. Prior [...] 168 hours. Last 3 TFT Recent Labs 06/15/2342704/17/23 03302/08/23 2208 TSH 2.98 5.93* 4.00 Last 3 [...] Administered Date(s) Administered Moderna Covid-19 Monovalent 12Yr+ (Instructor Substitute Cosmetology 100mcg) 03/06/2020, 04/03/2020 Discharge Medications: Your Medications [...] weight gain + increasing shortness of breath. kvex75-78 minutes prior to a dose of torsemide). [...] of 8AM-5PM please call the Cardiology Clinic [phone] to speak with a nurse. All other hours please call the Hospital Coding Manager [phone] and ask to speak to the cardiovascular hospitalist on-call. Follow up Appointments: Doctor Where Phone # Date Time PCP JOCY Franco Dr [address] [place], [place] [address] Please call to set up a follow up appointment. Cardiology Jaspreet Kinsey MD [facility] at [facility] Arrive at: [facility] [address] [phone] 10/26/2023 4:00 PM General Instructions None Future Appointments and Orders Future Appointments and Orders Future Appointments Provider Department Dept Phone 10/21/2023 10:30 AM [facility] ROOM 1 Nuclear Medicine at [facility] Arrive at: [facility] RADIOLOGY [phone] Please do not eat or drink anything for at least 6 hours prior to your appointment. 10/21/2023 11:30 AM [facility] ROOM 1 Nuclear Medicine at [facility] Arrive at: [facility] RADIOLOGY [phone] Please do not eat or drink anything for at least 6 hours prior to your appointment. 10/21/2023 12:30 PM [facility] ROOM 1 Nuclear Medicine at [facility] Arrive at: [facility] RADIOLOGY [phone] Please do not eat or drink anything for at least 6 hours prior to your appointment. 10/21/2023 1:30 PM [facility] ROOM 1 Nuclear Medicine at [facility] Arrive at: [facility] RADIOLOGY [phone] Please do not eat or drink anything for at least 6 hours prior to your appointment. 10/21/2023 2:30 PM [facility] ROOM 1 Nuclear Medicine at [facility] Arrive at: [facility] RADIOLOGY [phone] Please do not eat or drink anything for at least 6 hours prior to your appointment. 10/26/2023 4:00 PM Jaspreet Kinsey MD Card[facility] at [facility] Arrive at: [facility] [address] [phone] 10/28/2023 9:00 AM [facility] 2 G[facility]enterology at [facility] Arrive at: Scribing Machine Operator Area 4T [phone] 10/29/2023 10:00 AM [facility] 2 Gastroenterology at [facility] Arrive at: Scribing Machine Operator Area 4T [phone] 10/29/2023 10:15 AM [facility] 2 Gastroenterology at [facility] Arrive at: [facility] Operator Area 4T [phone] 11/22/2023 4:40 PM Porsha Mcdaniels MD Cardiology at [facility] Arrive at: [facility] Area 4A [phone] 12/13/2023 10:[address] Gastroenterology at [facility] Arrive at: Scrib[facility] Machine Operator Area 4L [phone] Discharge References/Attachments None Greater than 30 minutes was spent on this discharge including documentation, [id number] time withthe patient, patient education, order packer, coordination with pharmacy and other patient care. [...] of 8AM-5PM please call the Cardiology Clinic [phone] to speak with a nurse. All other hours please call the Hospital Coding Manager [phone] and ask to speak to the cardiovascular hospitalist on-call. Follow up Appointments: Doctor Where Phone # Date Time PCP JOCY Franco Dr [address] [place] [phone] Please call to set up a follow up appointment. Cardiology Jaspreet Kinsey MD Card[facility] at [facility] Arrive at: [facility] [address] [phone] 10/26/2023 4:00 PM documented in this encounter [...] as needed. fluticasone propionate (FLONASE) 50 mcg/actuation [place], Suspension 1 spray by Each Nare route [...] Center Cardiovascular Medicine CV HOSPITALIST 1 - [facility] DAILY PROGRESS NOTE Page [phone] to reach a provider 28/09 Admit Date: [...] hest pain, found to have transferred to [facility] for further management of [...] ointment Diet: Daily Healthy Menu Choices/Cardiac diet ([facility]iet[place] DVT Prophylaxis: DOAC Code status: Attempt Cardiopulmonary Resuscitation - Inpatient Disposition: Discharge Location: AM-[facility] Basic Mobility Raw Score: 19 PT: OT: PCP JOCY Franco [phone] Lloyd Keating MD 09/09/2023 * Florencia Ortez [...] Center Cardiovascular Medicine CV HOSPITALIST 1 - [facility] DAILY PROGRESS NOTE Page [phone] to reach a provider 28/09 Admit Date: [...] hest pain, found to have transferred to [facility] for further management of [...] ointment Diet: Daily Healthy Menu Choices/Cardiac diet ([facility] DVT Prophylaxis: DOAC Code status: Attempt Cardiopulmonary Resuscitation - Inpatient Disposition: Discharge Location: AM-[facility] Basic Mobility Raw Score: 24 PT: OT: PCP JOCY Franco [phone] Lloyd Keating MD 09/08/2023 * Edith [place] [...] Center Cardiovascular Medicine CV HOSPITALIST 1 - [facility] DAILY PROGRESS NOTE Page [phone] to reach a provider 28/09 Admit Date: [...] hest pain, found to have transferred to [facility] for further management of [...] ointment Diet: Daily Healthy Menu Choices/Cardiac diet ([facility] DVT Prophylaxis: DOAC Code status: Attempt Cardiopulmonary Resuscitation - Inpatient Disposition: Discharge Location: AM-[facility] Basic Mobility Raw Score: 24 PT: OT: PCP JOCY Franco [phone] Lloyd Keating MD 09/07/2023 * Dona Hanks [...] Center Cardiovascular Medicine CV HOSPITALIST 1 - [facility] DAILY PROGRESS NOTE Page [phone] to reach a provider 28/09 Admit Date: [...] hest pain, found to have transferred to [facility] for further management of [...] ointment Diet: Daily Healthy Menu Choices/Cardiac diet ([facility] DVT Prophylaxis: DOAC Code status: Attempt Cardiopulmonary Resuscitation - Inpatient Disposition: Discharge Location: AM-[facility] Basic Mobility Raw Score: 24 PT: OT: PCP JOCY Franco [phone] Lloyd Keating MD 09/06/2023 * Channing Montanez [...] at OSH with chest pain, transferred [place] [facility] for further management of [...] Miscellaneous Lab request Result Value Ref [facility] Lab Result Request [...] chest pain, found to have transferred to [facility] for further management of [...] ointment Diet: Daily Healthy Menu Choices/Cardiac diet ([facility] DVT Prophlaxis: DOAC Code [...] screened for hospital length of stay and chart writer met patient at bedside. Patient states [...] Orders Diet Daily Healthy Menu Choices/Cardiac diet ([facility]-Diet) Frequency: Effective Now Number of Occurrences: Until [...] unless consulted in the interim. LORNA Berrios Certified Drug Counselor * Samantha Broussard MD - 09/04/2023 8:35 [...] at OSH with chest pain, transferred [place] [facility] for further management of [...] found to have elevated NSTEMI, transferred to [facility] for further management of [...] ointment Diet: Daily Healthy Menu Choices/Cardiac diet ([facility] DVT Prophlaxis: DOAC Code [...] found to have elevated NSTEMI, transferred to [facility] for further management of [...] ointment Diet: Daily Healthy Menu Choices/Cardiac diet ([facility] DVT Prophlaxis: DOAC Code [...] found to have elevated NSTEMI, transferred to [facility] for further management of [...] neurontin Diet: Daily Healthy Menu Choices/Cardiac diet ([facility] DVT Prophlaxis: DOAC Code [...] the night. Plan: Continue to support patient RT Jonathon * Lorna Herr MD - 09/01/2023 6:42 [...] found to have elevated NSTEMI, transferred to [facility] for further management of [...] neurontin Diet: Daily Healthy Menu Choices/Cardiac diet ([facility] DVT Prophlaxis: DOAC Code [...] 7:25 AM EDT CV HOSPITALIST 1 - [facility] DAILY PROGRESS NOTE Page [phone] to reach a provider 28/09 Admit Date: [...] 97.0* 95.2* 96.2* 96.1* Recent Labs 08/31/23 02108/30/23 0309 08/29/23 04008/28/23210608/25/23 1128 NA 137 145 [...] found to have elevated NSTEMI, transferred to [facility] for further management of [...] duloxetine Diet: Daily Healthy Menu Choices/Cardiac diet ([facility] DVT Prophlaxis: DOAC Code status: Attempt Cardiopulmonary Resuscitation - Inpatient Disposition: Discharge Planning: AM-PAC Basic Mobility Raw Score: 19 PT: OT: PCP JOCY Franco [phone] * Mary Castaneda RCP - 08/31/2023 5:18 [...] 9:11 PM EDT CV HOSPITALIST 1 - [facility] DAILY PROGRESS NOTE Page [phone] to reach a provider 28/09 Admit Date: [...] found to have elevated NSTEMI, transferred to [facility] for further management of [...] duloxetine Diet: Daily Healthy Menu Choices/Cardiac diet ([facility] DVT Prophlaxis: DOAC Code status: Attempt Cardiopulmonary Resuscitation - Inpatient Disposition: Discharge Planning: AM-[facility] Basic Mobility Raw Score: 19 PT: OT: PCP JOCY Franco [phone] * Neli Alcantar RN - 08/29/2023 3:25 [...] 7:07 AM EDT CV HOSPITALIST 1 - [facility] DAILY PROGRESS NOTE Page [phone] to reach a provider 28/09 Admit Date: [...] found to have elevated NSTEMI, transferred to [facility] for further management of [...] duloxetine Diet: Daily Healthy Menu Choices/Cardiac diet ([facility]) DVT Prophlaxis: heparin gtt Code status: Attempt Cardiopulmonary Resuscitation - Inpatient Disposition: Discharge Planning: AM-PAC Basic Mobility Raw Score: 19 PT: OT: PCP JOCY Franco [phone] documented in this encounter H&P Notes * [...] treatment for possible ACS, and transfer to [facility] for further management. Prior [...] 3.56) performed by Lashonda Villa MD at [facility] ENDOSCOPY PRO UPPER GI ENDOSCOPY, BIOPSY N/A 07/07/2023 EGD WITH BIOPSY (WRVU 2.39) performed by Lashonda Villa MD at [facility] ENDOSCOPY VS ARTERIOGRAM MESENTERIC VASCULAR SURGERY 07/02/2023 VS Arteriogram Mesenteric Vascular Surgery 07/02/[address] MD [facility] INTERVENTIONL RAD Prior To Admission Medications: Medications [...] as needed. 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 Lives in [...] Administered Date(s) Administered Moderna Covid-19 Monovalent 12Yr+ (Instructor Substitute Cosmetology 100mcg) 03/06/2020, 04/03/2020 Physical Exam: Last Set [...] found to have elevated NSTEMI, transferred to [facility] [place] management #NSTEMI, [...] Notes * Plan of Care - Tim Cardoza RN - 09/10/2023 4:47 PM EDT Pt [...] respiratory supplies, other (see comments) (BiPAP through [employer]) DME Needed at Discharge: N/A Patient is insured through: Primary Insurance: [employer] [place] Pay[place] [employer] [place] / Plan[place] / [...] continue torsemide * Care Management - Jorge Veloz RN - 09/07/2023 2:04 PM EDT OFFICE [...] respiratory supplies, other (see comments) (BiPAP through [employer]) DME Needed at Discharge: No Patient is insured through: Primary Insurance: [employer] [place] Pay[place] [employer] [place] / Plan[place] / [...] RA. No complaints of SOB or pain. 09/14 CP this afternoon, EKG obtained, MD notified. [...] or living in a long term (including now)?: No In the past 12 months has the HBCS, gas, oil, or water [employer] threatened to shut off services in your [...] through [facility]) Home Address confirmed as: [address] [facility] [address] Social & Family Supports: All names listed [...] Specific Information: N/A Health/Prescription Coverage: Primary Insurance: [employer] [place] Payor: [email or web address] [facility] [place] / Plan: [facility] [place] EX[place]ANGE / Product Type: *No Product type* / Secondary Insurance: N/A Prescription Coverage: Yes Preferred Pharmacy: [facility] [address] [place], [place] - [address] [facility] [address] [facility] [address] [facility] - [place], [place] - [address] [facility] [address] [facility] [address] [facility] [address] [place] Status: Patient is a : No Primary Care Provider confirmed: JOCY Franco [phone] Patient/Caregiver Goals of Treatment: home when MR [...] included. [facility] [place] [address] INPATIENT CARDIOLOGY CONSULT NOTE Reason for Consult: Chest pain HPI: Loida Madrigal is a 53 y.o. obese female, history of non-obstructive CAD ([facility] 04/2023) with suspicion for microvascular dysfunction [...] 3:00 PM EDT Office [place] [address] [place] [address] Scheduled Orders Name Type Priority Associated Diagnoses [...] 4:17 AM EDT) Neutrophil % 54.4 % [facility] Neutrophil Absolute 4.17 1.70 - 6.10 x10(3)/[facility] Lymph % 33.2 % [facility] Lymphocytes Abs 2.5 0.9 - 3.2 x10(3)/[facility] Monocyte % 8.4 % [facility] Monocyte Abs 0.6 0.3 - 0.9 x10(3)/[facility] Eos % 3.0 % [facility] Eosinophils Abs 0.2 0.0 - 0.4 x10(3)/[facility] Basophil % 0.7 % [facility] Baso Absolute 0.0 0.0 - 0.1 x10(3)/[facility] Immature Gran % 0.30 [...] Gran Absolute 0.02 0.00 - 0.04 x10(3)/[facility] Blood 09/10/2023 4:17 AM EDT 09/10/2023 4:29 AM EDT Narrative Resulting Agency Comment Spec In Lab Eufemia Copeland MD HEMATOLOGY ORDERAB LES [facility] [place] [address] * (ABNORMAL) Hemogram (09/10/2023 4:17 AM EDT) White Blood Cell 7.6 4.0 - 9.5 x10(3)/[facility] Red Blood Cell 4.15 4.00 - 5.21 x10(6)/mc L [facility] Hemoglobin 13.0 11.7 - 15.5 g/dL [facility] Hematocrit 39.2 35.7 - 45.8 % [facility] Mean Cell Volume 94.5(H) 82.6 - 94.4 [facility] Mean Cell Hemoglobin 31.3 27.1 - 32.0 pg [facility] Mean Cell Hemoglobin Concentration 33.2 31.7 - 35.0 g/dL [facility] Platelet 267 145 - 357 x10(3)/mc [facility] RDW Standard Deviation 44.6 37.0 - 46.0 [facility] RDW coefficient of variation 13.1 11.5 - 14.1 % [facility] Mean Platelet Volume 10.3 7.6 - 12.9 [facility] NRBC% auto 0.0 % [facility] NRBC Absolute 0.000 0.000 - 0.000 x10(3)/ L [facility] Blood 09/10/2023 4:17 AM EDT 09/10/2023 4:29 AM EDT Narrative Resulting Agency Comment Spec In Lab Eufemia Copeland MD HEMATOLOGY ORDERAB LES [facility] [place] [address] * (ABNORMAL) Basic Metabolic Panel (non-fasting) (09/10/2023 4:17 AM EDT) Glucose 92 65 - 199 mg/dL [facility] Comment:Diabetes: >=200 mg/d L plus symptoms Blood Urea Nitrogen 27(H) 8 - 18 mg/dL [facility] Creatinine 1.39(H) 0.70 - 1.20 mg/dL [facility] [...] MD CHEMISTRY ORDERABL ES Performing Organization Address City/[facility]/ZIP Co de Phone Number [facility] [place] [address] * Magnesium (09/10/2023 4:17 AM EDT) [facility] Magnesium 0.99 0.69 - 1.07 mmol/L [facility] Blood 09/10/2023 4:17 AM EDT 09/10/2023 4:29 AM EDT Narrative Resulting Agency Comment Spec In Lab Eufemia Copeland MD CHEMISTRY ORDERABL ES Performing Organization Address [facility] Co de Phone Number [facility] [place] [address] * Differential, Automated (09/09/2023 5:10 AM EDT) [facility] Neutrophil % 54.1 % [facility] Neutrophil Absolute 4.00 1.70 - 6.10 x10(3)/[facility] Lymph % 31.7 % [facility] Lymphocytes Abs 2.3 0.9 - 3.2 x10(3)/[facility] Monocyte % 9.5 % [facility] Monocyte Abs 0.7 0.3 - 0.9 x10(3)/[facility] Eos % 3.5 % [facility] Eosinophils Abs 0.3 0.0 - 0.4 x10(3)/[facility] Basophil % 0.8 % [facility] Baso Absolute 0.1 0.0 - 0.1 x10(3)/[facility] Immature Gran % 0.40 [...] Gran Absolute 0.03 0.00 - 0.04 x10(3)/mcL [facility] Blood 09/09/2023 5:10 AM EDT 09/09/2023 5:19 AM EDT Narrative Resulting Agency Comment Spec In Lab Eufemia Copeland MD HEMATOLOGY ORDERAB LES [facility] [place] [address] * (ABNORMAL) Hemogram (09/09/2023 5:10 AM EDT) White Blood Cell 7.4 4.0 - 9.5 x10(3)/[facility] LABORAT[facility] Red Blood Cell 4.09 4.00 - 5.21 x10(6)/[facility] Hemoglobin 13.0 11.7 - 15.5 g/dL [facility] Hematocrit 39.2 35.7 - 45.8 % [facility] Mean Cell Volume 95.8(H) 82.6 - 94.4 fL [facility] Mean Cell Hemoglobin 31.8 27.1 - 32.0 pg [facility] Mean Cell Hemoglobin Concentration 33.2 31.7 - 35.0 g/dL [facility] Platelet 267 145 - 357 x10(3)/[facility] RDW Standard Deviation 45.3 37.0 - 46.0 [facility] RDW coefficient of variation 12.9 11.5 - 14.1 % [facility] Mean Platelet Volume 9.9 7.6 - 12.9 fL [facility] NRBC% auto 0.0 % [facility] NRBC Absolute 0.000 0.000 - 0.000 x10(3)/[facility] Blood 09/09/2023 5:10 AM EDT 09/09/2023 5:19 AM EDT Narrative Resulting Agency Comment Spec In Lab Eufemia Copeland MD HEMATOLOGY ORDERAB LES [facility] [place] [address] * (ABNORMAL) Basic Metabolic Panel (non-fasting) (09/09/2023 5:10 AM EDT) Glucose 97 65 - 199 mg/dL [facility] Comment:Diabetes: >=200 mg/d L plus symptoms Blood Urea Nitrogen 22(H) 8 - 18 mg/dL [facility] Creatinine 1.36(H) 0.70 - 1.20 mg/dL [facility] [...] Organization Address [facility] Co de Phone Number [facility] [place] [address] * Magnesium (09/09/2023 5:10 AM EDT) Magnesium 0.97 0.69 - 1.07 mmol/L [facility] Blood 09/09/2023 5:10 AM EDT 09/09/2023 5:19 AM EDT Narrative Resulting Agency Comment Spec In Lab Eufemia Copeland MD CHEMISTRY ORDERABL ES Performing Organization Address [facility] Co de Phone Number [facility] [place] [address] * EKG 12 Lead (09/08/2023 4:01 AM EDT) Ventricular rate 59 BPM MUSE SYSTEM Atrial Rate 59 BPM MUSE SYSTEM P-R Interval 192 ms MUSE SYSTEM QRS Duration 92 ms MUSE SYSTEM Q-T Interval 452 ms MUSE SYSTEM QTC Calculated (Bezet) 447 ms MUSE SYSTEM Calculated P [place]yn[place] 38 degrees MUSE SYSTEM Calculated R [place]yn[place] 51 degrees MUSE SYSTEM Calculated T Tynan -18 degrees MUSE SYSTEM INTERPRETATION Sinus bradycardia Diffuse ST depression, consider subendocardial injury Abnormal ECG When compared with ECG of 03-SEP-2023 06:02, Premature atrial complexes are no longer Present QT has shortened I personally reviewed the tracing and edited the fellows interpretation Confirmed by fellow Vito Pearce ([id number]) on 09/08/2023 7:40:32 AM Confirmed by MD Angelo Danette ([id number]) on 09/08/2023 2:12:57 PM MUSE SYSTEM 09/08/2023 4:01 AM EDT 09/08/2023 2:12 PM EDT Eufemia Copeland MD ECG ORDERABLES MUSE SYSTEM * Differential, Automated (09/08/2023 2:22 AM EDT) Pathologist [facility] Neutrophil % 55.2 % [facility] Neutrophil Absolute 4.74 1.70 - 6.10 x10(3)/[facility] Lymph % 30.8 % [facility] Lymphocytes Abs 2.6 0.9 - 3.2 x10(3)/[facility] Monocyte % 9.5 % [facility] Monocyte Abs 0.8 0.3 - 0.9 x10(3)/[facility] Eos % 3.6 % [facility] Eosinophils Abs 0.3 0.0 - 0.4 x10(3)/[facility] Basophil % 0.5 % [facility] Baso Absolute 0.0 0.0 - 0.1 x10(3)/[facility] Immature Gran % 0.40 % [facility] Comment: Immature granulocytes(IG's)percentage and absolute count will include metamyelocytes, myelocytes, and promyelocytes. Blood smears from CBCs yielding IG's will be scanned manually for concordance. If this scan disagrees with the automated IG or if promyelocytes are noted, a manual differential will be performed. Immature Gran Absolute 0.03 0.00 - 0.04 x10(3)/[facility] Blood 09/08/2023 2:22 AM EDT 09/08/2023 2:37 AM EDT Narrative Resulting Agency Comment Spec In Lab Eufemia Copeland MD HEMATOLOGY ORDERAB LES [facility] [place] [address] * (ABNORMAL) Hemogram (09/08/2023 2:22 AM EDT) [facility] White Blood Cell 8.6 4.0 - 9.5 x10(3)/ L [facility] Red Blood Cell 3.98(L) 4.00 - 5.21 x10(6)/mc L [facility] Hemoglobin 12.8 11.7 - 15.5 g/dL [facility] Hematocrit 37.4 35.7 - 45.8 % [facility] Mean Cell Volume 94.0 82.6 - 94.4 fL [facility] Mean Cell Hemoglobin 32.2(H) 27.1 - 32.0 pg [facility] Mean Cell Hemoglobin Concentration 34.2 31.7 - 35.0 g/dL [facility] Platelet 274 145 - 357 x10(3)/[facility] RDW Standard Deviation 44.5 37.0 - 46.0 fL [facility] RDW coefficient of variation 12.9 11.5 - 14.1 % [facility] Mean Platelet Volume 10.4 7.6 - 12.9 fL [facility] NRBC% auto 0.0 % [facility] NRBC Absolute 0.000 0.000 - 0.000 x10(3)/[facility] Blood 09/08/2023 2:22 AM EDT 09/08/2023 2:37 AM EDT Narrative Resulting Agency Comment Spec In Lab Eufemia Copeland MD HEMATOLOGY ORDERAB LES [facility] [place] [address] * (ABNORMAL) Basic Metabolic Panel (non-fasting) (09/08/2023 2:22 AM EDT) [facility] Glucose 98 65 - 199 mg/dL [facility] ORDERABL ES [facility] [place] [address] * Magnesium (09/08/2023 2:22 AM EDT) Magnesium 0.91 0.69 - 1.07 mmol/L [facility] Blood 09/08/2023 2:22 AM EDT 09/08/2023 2:37 AM EDT Narrative Resulting Agency Comment Spec In Lab Eufemia Copeland MD CHEMISTRY ORDERABL ES Performing Organization Address City/[facility]/ZIP Co de Phone Number [facility] [place] [address] * Differential, Automated (09/07/2023 2:56 AM EDT) Neutrophil % 52.3 % [facility] Neutrophil Absolute 3.74 1.70 - 6.10 x10(3)/[facility] Lymph % 33.8 % [facility] Lymphocytes Abs 2.4 0.9 - 3.2 x10(3)/[facility] Monocyte % 9.4 % [facility] Monocyte Abs 0.7 0.3 - 0.9 x10(3)/[facility] Eos % 3.6 % [facility] Eosinophils Abs 0.3 0.0 - 0.4 x10(3)/[facility] Basophil % 0.6 % [facility] Baso Absolute 0.0 0.0 - 0.1 x10(3)/[facility] Immature Gran % 0.30 [...] Gran Absolute 0.02 0.00 - 0.04 x10(3)/[facility] Blood 09/07/2023 2:56 AM EDT 09/07/2023 3:31 AM EDT Narrative Resulting Agency Comment Spec In Lab Eufemia Copeland MD HEMATOLOGY ORDERAB LES [facility] [place] [address] * (ABNORMAL) Hemogram (09/07/2023 2:56 AM EDT) [facility] White Blood Cell 7.2 4.0 - 9.5 x10(3)/ L [facility] Red Blood Cell 4.16 4.00 - 5.21 x10(6)/[facility] Hemoglobin 13.1 11.7 - 15.5 g/dL [facility] Hematocrit 39.7 35.7 - 45.8 % [facility] Mean Cell Volume 95.4(H) 82.6 - 94.4 fL [facility] Mean Cell Hemoglobin 31.5 27.1 - 32.0 pg [facility] Mean Cell Hemoglobin Concentration 33.0 31.7 - 35.0 g/dL [facility] Platelet 277 145 - 357 x10(3)/[facility]OR[facility]ORY RDW Standard Deviation 45.4 37.0 - 46.0 [facility] RDW coefficient of variation 12.9 11.5 - 14.1 % [facility] Mean Platelet Volume 10.6 7.6 - 12.9 [facility] NRBC% auto 0.0 % [facility] NRBC Absolute 0.000 0.000 - 0.000 x10(3)/[facility] Blood 09/07/2023 2:56 AM EDT 09/07/2023 3:31 AM EDT Narrative Resulting Agency Comment Spec In Lab Eufemia Copeland MD HEMATOLOGY ORDERAB LES [facility] [place] [address] * (ABNORMAL) Basic Metabolic Panel (non-fasting) (09/07/2023 2:56 AM EDT) [facility] Glucose 97 65 - 199 mg/dL [facility] ORDERABL ES [facility] [place] [address] * Magnesium (09/07/2023 2:56 AM EDT) Magnesium 0.96 0.69 - 1.07 mmol/L [facility] Blood 09/07/2023 2:56 AM EDT 09/07/2023 3:31 AM EDT Narrative Resulting Agency Comment Spec In Lab Eufemia Copeland MD CHEMISTRY ORDERABL ES [facility] [place] [address] * Differential, Automated (09/06/2023 2:44 AM EDT) [facility] Neutrophil % 53.7 % [facility] Neutrophil Absolute 4.01 1.70 - 6.10 x10(3)/[facility] Lymph % 32.0 % [facility] Lymphocytes Abs 2.4 0.9 - 3.2 x10(3)/[facility] Monocyte % 10.0 % [facility] Monocyte Abs 0.8 0.3 - 0.9 x10(3)/[facility] Eos % 3.2 % [facility] Eosinophils Abs 0.2 0.0 - 0.4 x10(3)/[facility] Basophil % 0.7 % [facility] Baso Absolute 0.0 0.0 - 0.1 x10(3)/[facility] Immature Gran % 0.40 % [facility] Comment: Immature granulocytes(IG's)percentage and absolute count will include metamyelocytes, myelocytes, and promyelocytes. Blood smears from CBCs yielding IG's will be scanned manually for concordance. If this scan disagrees with the automated IG or if promyelocytes are noted, a manual differential will be performed. Immature Gran Absolute 0.03 0.00 - 0.04 x10(3)/[facility] Blood 09/06/2023 2:44 AM EDT 09/06/2023 2:58 AM EDT Narrative Resulting Agency Comment Spec In Lab Eufemia Copeland MD HEMATOLOGY ORDERAB LES Performing Organization Address City/[facility]/ZIP Co de Phone Number [facility] [place] [address] * Hemogram (09/06/2023 2:44 AM EDT) White Blood Cell 7.5 4.0 - 9.5 x10(3)/[facility] Red Blood Cell 4.26 4.00 - 5.21 x10(6)/[facility] Hemoglobin 13.6 11.7 - 15.5 g/dL [facility] Hematocrit 40.2 35.7 - 45.8 % [facility] Mean Cell Volume 94.4 82.6 - 94.4 fL [facility] Mean Cell Hemoglobin 31.9 27.1 - 32.0 pg [facility] Mean Cell Hemoglobin Concentration 33.8 31.7 - 35.0 g/dL [facility] Platelet 274 145 - 357 x10(3)/[facility] RDW Standard Deviation 44.3 37.0 - 46.0 [facility] RDW coefficient of variation 12.9 11.5 - 14.1 % [facility] Mean Platelet Volume 10.2 7.6 - 12.9 fL [facility] NRBC% auto 0.0 % [facility] NRBC Absolute 0.000 0.000 - 0.000 x10(3)/[facility] Blood 09/06/2023 2:44 AM EDT 09/06/2023 2:58 AM EDT Narrative Resulting Agency Comment Spec In Lab Eufemia Copeland MD HEMATOLOGY ORDERAB LES Performing Organization Address City/[facility]/ZIP Co de Phone Number [facility] [place] [address] * Basic Metabolic Panel (non-fasting) (09/06/2023 2:44 AM EDT) Glucose 100 65 - 199 mg/dL [facility] Comment:Diabetes: >=200 mg/d L plus symptoms Blood Urea Nitrogen 16 8 - 18 mg/dL [facility] Creatinine 1.05 0.70 - 1.20 mg/dL [facility] Est Glomerular Filtration Rate 63 >=60 mL/min/1. 73 m?? [facility] [...] ORDERABL ES [facility] [place] [address] * Magnesium (09/06/2023 2:44 AM EDT) Magnesium 0.95 0.69 - 1.07 mmol/L [facility] Blood 09/06/2023 2:44 AM EDT 09/06/2023 2:58 AM EDT Narrative Resulting Agency Comment Spec In Lab Eufemia Copeland MD CHEMISTRY ORDERABL ES [facility] [address] [place] [address] * CT Abdomen & Pelvis w Contrast (09/05/2023 4:25 PM EDT) [facility] WORKSTATION ID [id number] RAD Anatomical Region Laterality Modality Abdomen, Pelvis [...] have questions please contact the health health and social care 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 ? [...] who have questions please contactthe health health and social care 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 Samantha Broussard MD IMG CT ORDERABLES * Differential, Automated (09/05/2023 1:58 AM EDT) Neutrophil % 54.5 % [facility] Neutrophil Absolute 4.32 1.70 - 6.10 x10(3)/[facility] Lymph % 30.5 % [facility] Lymphocytes Abs 2.4 0.9 - 3.2 x10(3)/[facility] Monocyte % 11.4 % [facility] Monocyte Abs 0.9 0.3 - 0.9 x10(3)/[facility] Eos % 2.8 % [facility] Eosinophils Abs 0.2 0.0 - 0.4 x10(3)/[facility] Basophil % 0.5 % [facility] Baso Absolute 0.0 0.0 - 0.1 x10(3)/[facility] Immature Gran % 0.30 % [facility] Comment: Immature granulocytes(IG's)percentage and absolute count will include metamyelocytes, myelocytes, and promyelocytes. Blood smears from CBCs yielding IG's will be scanned manually for concordance. If this scan disagrees with the automated IG or if promyelocytes are noted, a manual differential will be performed. Immature Gran Absolute 0.02 0.00 - 0.04 x10(3)/[facility] Blood 09/05/2023 1:58 AM EDT 09/05/2023 2:13 AM EDT Narrative Resulting Agency Comment Spec In Lab Eufemia Copeland MD HEMATOLOGY ORDERAB LES [facility] [place] [address] * Hemogram (09/05/2023 1:58 AM EDT) [facility] White Blood Cell 7.9 4.0 - 9.5 x10(3)/[facility] Red Blood Cell 4.38 4.00 - 5.21 x10(6)/[facility] Hemoglobin 13.7 11.7 - 15.5 g/dL [facility] Hematocrit 40.5 35.7 - 45.8 % [facility] Mean Cell Volume 92.5 82.6 - 94.4 fL [facility] Mean Cell Hemoglobin 31.3 27.1 - 32.0 pg [facility] Mean Cell Hemoglobin Concentration 33.8 31.7 - 35.0 g/dL [facility] Platelet 282 145 - 357 x10(3)/[facility] RDW Standard Deviation 44.0 37.0 - 46.0 [facility] RDW coefficient of variation 13.0 11.5 - 14.1 % [facility] Mean Platelet Volume 10.4 7.6 - 12.9 [facility] NRBC% auto 0.0 % [facility] NRBC Absolute 0.000 0.000 - 0.000 x10(3)/[facility] Blood 09/05/2023 1:58 AM EDT 09/05/2023 2:13 AM EDT Narrative Resulting Agency Comment Spec In Lab Eufmeia Copeland MD HEMATOLOGY ORDERAB LES [facility] [place] [address] * (ABNORMAL) Basic Metabolic Panel (non-fasting) (09/05/2023 1:58 AM EDT) Glucose 103 65 - 199 mg/dL [facility] Comment:Diabetes: >=200 mg/d L plus symptoms Blood Urea Nitrogen 24(H) 8 - 18 mg/dL [facility] Creatinine 1.10 0.70 - 1.20 mg/dL [facility] Est Glomerular Filtration Rate 60 >=60 mL/min/1. 73 m?? [facility] [...] Organization Address [facility] Co de Phone Number [facility] [place] [address] * Magnesium (09/05/2023 1:58 AM EDT) Magnesium 1.02 0.69 - 1.07 mmol/L [facility] Blood 09/05/2023 1:58 AM EDT 09/05/2023 2:13 AM EDT Narrative Resulting Agency Comment Spec In Lab Eufemia Copeland MD CHEMISTRY ORDERABL ES Performing Organization Address City/[facility]/ZIP Co de Phone Number [facility] [place] [address] * Miscellaneous Lab request (09/05/2023 1:58 AM EDT) Label Request received in lab. [facility] Blood 09/05/2023 1:58 AM EDT 09/05/2023 2:14 AM EDT Narrative Resulting Agency Comment Spec In Lab Samantha Broussard MD LAB SEND OUT ORDERAB LES Performing Organization Address City/[facility]/ZIP Co de Phone Number [facility] [place] [address] * IgG 4 (09/05/2023 1:58 AM EDT) IgG 4 47.7 3.9 - 86.4 mg/dL [facility] Blood 09/05/2023 1:58 AM EDT 09/05/2023 2:13 AM EDT Narrative Resulting Agency Comment Spec In Lab Samantha Broussard MD IMMUNOLOGY ORDERABLE S Performing Organization Address [facility] Co de Phone Number [facility] [place] [address] * (ABNORMAL) Basic Metabolic Panel (non-fasting) (09/04/2023 2:11 PM EDT) Glucose 104 65 - 199 mg/dL [facility] Comment:Diabetes: >=200 mg/d L plus symptoms Blood Urea Nitrogen 24(H) 8 - 18 mg/dL [facility] Creatinine 1.34(H) 0.70 - 1.20 mg/dL [facility] Est Glomerular Filtration Rate 47(L) >=60 mL/min/1. 73 m?? [facility] [...] Mcmanus MD CHEMISTRY ORDERABLES Performing Organization Address [facility] Co de Phone Number [facility] [place] [address] * (ABNORMAL) Potassium (09/04/2023 9:13 AM EDT) Potassium 3.2(L) 3.5 - 5.0 mmol/L [facility] [...] Broussard MD CHEMISTRY ORDERABLES Performing Organization Address City/[facility] Co de Phone Number [facility] [place] [address] * (ABNORMAL) Potassium (09/04/2023 4:25 AM EDT) [facility] Potassium 2.9(Criti edy) 3.5 - 5.0 mmol/L [facility] Comment: Called by: staci, Read [...] In Lab Lorna Herr MD CHEMISTRY ORDERABLES [facility] [place] [address] * Differential, Automated (09/04/2023 3:03 AM EDT) [facility] Neutrophil % 59.0 % [facility] Neutrophil Absolute 4.85 1.70 - 6.10 x10(3)/[facility] Lymph % 26.3 % [facility] Lymphocytes Abs 2.2 0.9 - 3.2 x10(3)/[facility] Monocyte % 10.4 % [facility] Monocyte Abs 0.8 0.3 - 0.9 x10(3)/[facility] Eos % 3.4 % [facility] Eosinophils Abs 0.3 0.0 - 0.4 x10(3)/[facility] Basophil % 0.5 % [facility] Baso Absolute 0.0 0.0 - 0.1 x10(3)/[facility] Immature Gran % 0.40 [...] Gran Absolute 0.03 0.00 - 0.04 x10(3)/mcL [facility] Blood 09/04/2023 3:03 AM EDT 09/04/2023 3:21 AM EDT Narrative Resulting Agency Comment Spec In Lab Eufemia Copeland MD HEMATOLOGY ORDERAB LES [facility] [place] [address] * (ABNORMAL) Hemogram (09/04/2023 3:03 AM EDT) White Blood Cell 8.2 4.0 - 9.5 x10(3)/mc L [facility] Red Blood Cell 4.55 4.00 - 5.21 x10(6)/mc L [facility] Hemoglobin 14.8 11.7 - 15.5 g/dL [facility] Hematocrit 41.8 35.7 - 45.8 % [facility] Mean Cell Volume 91.9 82.6 - 94.4 fL [facility] Mean Cell Hemoglobin 32.5(H) 27.1 - 32.0 pg [facility] Mean Cell Hemoglobin Concentration 35.4(H) 31.7 - 35.0 g/dL [facility] Platelet 306 145 - 357 x10(3)/mc L [facility] RDW Standard Deviation 42.8 37.0 - 46.0 fL [facility] RDW coefficient of variation 12.8 11.5 - 14.1 % [facility] Mean Platelet Volume 10.2 7.6 - 12.9 fL [facility] NRBC% auto 0.0 % [facility] NRBC Absolute 0.000 0.000 - 0.000 x10(3)/mc L [facility] Blood 09/04/2023 3:03 AM EDT 09/04/2023 3:21 AM EDT Narrative Resulting Agency Comment Spec In Lab Eufemia Copeland MD HEMATOLOGY ORDERAB LES [facility] [place] [address] * (ABNORMAL) Basic Metabolic Panel (non-fasting) (09/04/2023 3:03 AM EDT) Glucose 117 65 - 199 mg/dL [facility] Comment:Diabetes: >=200 mg/d L plus symptoms Blood Urea Nitrogen 28(H) 8 - 18 mg/dL [facility] Creatinine 1.32(H) 0.70 - 1.20 mg/dL [facility] Est Glomerular Filtration Rate 48(L) >=60 mL/min/1. 73 m?? [facility] [...] Organization Address [facility] Co de Phone Number [facility] [place] [address] * Magnesium (09/04/2023 3:03 AM EDT) Pathologist [facility] Magnesium 1.07 0.69 - 1.07 mmol/L [facility] Blood 09/04/2023 3:03 AM EDT 09/04/2023 3:21 AM EDT Narrative Resulting Agency Comment Spec In Lab Eufemia Copeland MD CHEMISTRY ORDERABL ES Performing Organization Address [facility] Co de Phone Number [facility] [place] [address] * EKG 12 Lead (09/03/2023 6:02 AM EDT) Ventricular rate 65 BPM MUSE SYSTEM Atrial Rate 65 BPM MUSE SYSTEM P-R Interval 196 ms MUSE SYSTEM QRS Duration 94 ms MUSE SYSTEM Q-T Interval 580 ms MUSE SYSTEM QTC Calculated (Bezet) 603 ms MUSE SYSTEM Calculated P Tynan 39 degrees MUSE SYSTEM Calculated R Tynan 28 degrees MUSE SYSTEM Calculated T Tynan 35 degrees MUSE SYSTEM INTERPRETATION Sinus rhythm with Premature atrial complexes Possible Left atrial enlargement Nonspecific ST and T wave abnormality Abnormal ECG When compared with ECG of 03-SEP-2023 03:05, Nonspecific T wave abnormality no longer evident in Inferior leads Nonspecific T wave abnormality, improved in Anterolateral leads QT has lengthened Confirmed by fellow MD Santo Kajal ([id number]) on 09/06/2023 12:52:08 AM Confirmed by MD Lucia Jose ([id number]) on 09/06/2023 9:05:05 PM MUSE SYSTEM 09/03/2023 6:02 AM EDT 09/06/2023 9:05 PM EDT Archie Mcmanus MD ECG ORDERABLES Performing Organization Address [facility] Co de Phone Number MUSE SYSTEM * EKG 12 Lead (09/03/2023 3:05 AM EDT) Ventricular rate 62 BPM MUSE SYSTEM Atrial Rate 62 BPM MUSE SYSTEM P-R Interval 174 ms MUSE SYSTEM QRS Duration 90 ms MUSE SYSTEM Q-T Interval 486 ms MUSE SYSTEM QTC Calculated (Bezet) 493 ms MUSE SYSTEM Calculated P Tynan 20 degrees MUSE SYSTEM Calculated R Tynan 20 degrees MUSE SYSTEM Calculated T Tynan -7 degrees MUSE SYSTEM INTERPRETATION Sinus rhythm with Premature atrial complexes Nonspecific ST and T wave abnormality Abnormal ECG When compared with ECG of 02-SEP-2023 14:42, Premature atrial complexes are now Present QT has lengthened Confirmed by fellow MD Santo Kajal ([id number]) on 09/06/2023 12:50:25 AM Confirmed by MD Lucia Jose ([id number]) on 09/06/2023 9:04:55 PM MUSE SYSTEM 09/03/2023 3:05 AM EDT 09/06/2023 9:04 PM EDT Archie Mcmanus MD ECG ORDERABLES Performing Organization Address [facility]/ZIP Co de Phone Number MUSE SYSTEM * Differential, Automated (09/03/2023 2:39 AM EDT) Neutrophil % 61.1 % [facility] Neutrophil Absolute 5.22 1.70 - 6.10 x10(3)/[facility] Lymph % 24.2 % [facility] Lymphocytes Abs 2.1 0.9 - 3.2 x10(3)/[facility] Monocyte % 10.3 % [facility] Monocyte Abs 0.9 0.3 - 0.9 x10(3)/[facility] Eos % 3.6 % [facility] Eosinophils Abs 0.3 0.0 - 0.4 x10(3)/[facility] Basophil % 0.6 % [facility] Baso Absolute 0.0 0.0 - 0.1 x10(3)/[facility] Immature Gran % 0.20 % [facility] Comment: Immature granulocytes(IG's)percentage and absolute count will include metamyelocytes, myelocytes, and promyelocytes. Blood smears from CBCs yielding IG's will be scanned manually for concordance. If this scan disagrees with the automated IG or if promyelocytes are noted, a manual differential will be performed. Immature Gran Absolute 0.02 0.00 - 0.04 x10(3)/[facility] LABORATORY Blood 09/03/2023 2:39 AM EDT 09/03/2023 2:46 AM EDT Narrative Resulting Agency Comment Spec In Lab Eufemia Copeland MD HEMATOLOGY ORDERAB LES [facility] [place] [address] * Hemogram (09/03/2023 2:39 AM EDT) White Blood Cell 8.6 4.0 - 9.5 x10(3)/[facility] LABORATORY Red Blood Cell 4.83 4.00 - 5.21 x10(6)/[facility] LABORATORY Hemoglobin 15.2 11.7 - 15.5 g/dL [facility]OR[facility]ORY Hematocrit 45.4 35.7 - 45.8 % [facility] Mean Cell Volume 94.0 82.6 - 94.4 fL [facility] Mean Cell Hemoglobin 31.5 27.1 - 32.0 pg [facility] Mean Cell Hemoglobin Concentration 33.5 31.7 - 35.0 g/dL [facility]OR[facility] Platelet 295 145 - 357 x10(3)/[facility] LABORATORY RDW Standard Deviation 44.1 37.0 - 46.0 fL [facility] RDW coefficient of variation 12.8 11.5 - 14.1 % [facility] Mean Platelet Volume 10.3 7.6 - 12.9 fL [facility] NRBC% auto 0.0 % [facility] LABORATORY NRBC Absolute 0.000 0.000 - 0.000 x10(3)/[facility] LABORATORY Blood 09/03/2023 2:39 AM EDT 09/03/2023 2:46 AM EDT Narrative Resulting Agency Comment Spec In Lab Eufemia Copeland MD HEMATOLOGY ORDERAB LES [facility] [place] [address] * (ABNORMAL) Basic Metabolic Panel (non-fasting) (09/03/2023 2:39 AM EDT) Glucose 108 65 - 199 mg/dL [facility] Comment:Diabetes: >=200 mg/d L plus symptoms Blood Urea Nitrogen 23(H) 8 - 18 mg/dL [facility] Creatinine 1.53(H) 0.70 - 1.20 mg/dL [facility] [...] questions. Chloride 93(L) 98 - 107 mmol/L [facility] Carbon Dioxide 30 22 - 31 mmol/L [facility] Anion Gap 15 5 - 15 mmol/L [facility] Calcium 10.4 8.5 - 10.5 mg/dL [facility] Est Glomerular Filtration Rate 40(L) >=60 mL/min/1. 73 m?? [facility] [...] MD CHEMISTRY ORDERABL ES Performing Organization Address City/[facility]/ZIP Co de Phone Number [facility] [place] [address] * Magnesium (09/03/2023 2:39 AM EDT) Magnesium 0.98 0.69 - 1.07 mmol/L [facility] Blood 09/03/2023 2:39 AM EDT 09/03/2023 2:46 AM EDT Narrative Resulting Agency Comment Spec In Lab Eufemia Copeland MD CHEMISTRY ORDERABL ES [facility] [place] [address] * (ABNORMAL) Protein Electrophoresis, serum (09/03/2023 2:39 AM EDT) Total Prot Electrophoresis 7.9 6.1 - 8.0 g/dL [facility] Albumin Electrophoresis 4.87 3.20 - 5.20 g/dL [facility] Alpha 1 Globulin 0.21 0.10 - 0.30 g/dL [facility] Alpha 2 Globulin 1.03(H) 0.40 - 0.90 g/dL [facility] Beta Globulin 0.90 0.50 - 1.00 g/dL [facility] Gamma Globulin 0.88 0.50 - 1.30 g/dL [facility] M1 Band None Detected None Detected [facility] Blood 09/03/2023 2:39 AM EDT 09/03/2023 2:46 AM EDT Narrative Resulting Agency Comment Spec In Lab Lorna eHrr MD CHEMISTRY ORDERABLES Performing Organization Address [facility] Co de Phone Number [facility] [place] [address] * Protein Electrophoresis, urine, random (09/02/2023 9:30 PM EDT) Protein, Urine <6 0 - 12 mg/dL [facility] U Albumin See Note [facility] Comment:No protein visible v ia electrophoresis due to a low urine total protein. Globulin, Urine Not Perf [facility] Comment:No protein visible v ia electrophoresis due to a low urine total protein. M1 Band, Urine Not Perf [facility] Comment:No protein visible v ia electrophoresis due to a low urine total protein. UPEP Comments See Note [facility]OR[facility] Comment: Total Protein concentration too low to fractionate using current electrophoretic technique. No protein visible via electrophoresis due to a low urine total protein. Urine 09/02/2023 9:30 PM EDT 09/02/2023 9:35 PM EDT Narrative Resulting Agency Comment Spec In Lab Lorna Herr MD URINE ORDERABLES Performing Organization Address [facility]/ZIP Co de Phone Number [facility] [place] [address] * (ABNORMAL) Troponin (09/02/2023 8:16 PM EDT) Troponin-T, High Sensitivity 24(H) <=14 ng/L [facility] [...] can be found in the [facility] Test Catalog Troponin - [facility] Test Catalog Reference: Fourth [place] Definition of Myocardial Infarction. Journal of the [place] [employer] 2018;72:1733-1157 Blood 09/02/2023 8:16 PM EDT 09/02/2023 8:25 PM EDT Narrative Resulting Agency Comment Spec In Lab Lorna Herr MD CHEMISTRY ORDERABLES [facility] [place] [address] * (ABNORMAL) pro-Brain Natriuretic Peptide (09/02/2023 5:05 PM EDT) NT-proBNP 985(H) <=124 pg/mL [facility] LABORATORY Blood 09/02/2023 5:05 PM EDT 09/02/2023 5:17 PM EDT Narrative Resulting Agency Comment Spec In Lab Lorna Herr MD CHEMISTRY ORDERABLES Performing Organization Address City/[facility]/ZIP Co de Phone Number [facility] [place] [address] * (ABNORMAL) Troponin (09/02/2023 5:05 PM EDT) Pathologist [facility] Troponin-T, High Sensitivity 24(H) <=14 ng/L [facility] [...] can be found in the [facility] Test Catalog Troponin - [facility] Test Catalog Reference: Fourth [place] Definition of Myocardial Infarction. Journal of the [place] [employer] 2018;72:9282-3158 Blood 09/02/2023 5:05 PM EDT 09/02/2023 5:17 PM EDT Narrative Resulting Agency Comment Spec In Lab Lorna Herr MD CHEMISTRY ORDERABLES Performing Organization Address City/[facility]/ZIP Co de Phone Number [facility] [place] [address] * EKG 12 Lead (09/02/2023 2:42 PM EDT) Ventricular rate 60 BPM MUSE SYSTEM Atrial Rate 60 BPM MUSE SYSTEM P-R Interval 178 ms MUSE SYSTEM QRS Duration 88 ms MUSE SYSTEM Q-T Interval 434 ms MUSE SYSTEM QTC Calculated (Bezet) 434 ms MUSE SYSTEM Calculated P Tynan 42 degrees MUSE SYSTEM Calculated R Tynan 44 degrees MUSE SYSTEM INTERPRETATION Normal sinus [...] can be found in the [facility] Test Catalog Troponin - [facility] Test Catalog Reference: Fourth [place] Definition of Myocardial Infarction. Journal of the [place] [employer] 2018;72:9173-9647 Blood 09/02/2023 9:05 AM EDT 09/02/2023 9:28 AM EDT Narrative Resulting Agency Comment Spec In Lab Archie Mcmanus MD CHEMISTRY ORDERABLES [facility] [place] [address] * Differential, Automated (09/02/2023 3:18 AM EDT) Neutrophil % 58.4 % [facility]ORAT[facility] Neutrophil Absolute 4.40 1.70 - 6.10 x10(3)/[facility] LABORATORY Lymph % 28.2 % [facility]ORATORY Lymphocytes Abs 2.1 0.9 - 3.2 x10(3)/[facility] LABORATORY Monocyte % 8.3 % [facility]AT[facility] Monocyte Abs 0.6 0.3 - 0.9 x10(3)/[facility] LABORATORY Eos % 4.2 % [facility] Eosinophils Abs 0.3 0.0 - 0.4 x10(3)/[facility] LABORATORY Basophil % 0.5 % [facility] Baso Absolute 0.0 0.0 - 0.1 x10(3)/[facility] LABORATORY Immature Gran % 0.40 % [facility] Comment: Immature granulocytes(IG's)percentage and absolute count will include metamyelocytes, myelocytes, and promyelocytes. Blood smears from CBCs yielding IG's will be scanned manually for concordance. If this scan disagrees with the automated IG or if promyelocytes are noted, a manual differential will be performed. Immature Gran Absolute 0.03 0.00 - 0.04 x10(3)/[facility] LABORATORY Blood 09/02/2023 3:18 AM EDT 09/02/2023 3:55 AM EDT Narrative Resulting Agency Comment Spec In Lab Eufemia Copeland MD HEMATOLOGY ORDERAB LES [facility] [place] [address] * (ABNORMAL) Hemogram (09/02/2023 3:18 AM EDT) White Blood Cell 7.6 4.0 - 9.5 x10(3)/mc L [facility]ORAT[facility] Red Blood Cell 4.33 4.00 - 5.21 x10(6)/mc L [facility] Hemoglobin 13.6 11.7 - 15.5 [...] g/dL [facility] Platelet 275 145 - 357 x10(3)/mc L [facility] RDW Standard Deviation 45.7 37.0 - 46.0 fL [facility] RDW coefficient of variation 13.2 11.5 - 14.1 % [facility] Mean Platelet Volume 10.7 7.6 - 12.9 fL [facility] NRBC% auto 0.0 % [facility] NRBC Absolute 0.000 0.000 - 0.000 x10(3)/mc L [facility] Blood 09/02/2023 3:18 AM EDT 09/02/2023 3:55 AM EDT Narrative Resulting Agency Comment Spec In Lab Eufemia Copeland MD HEMATOLOGY ORDERAB LES [facility] [place] [address] * (ABNORMAL) Troponin (09/02/2023 3:18 AM EDT) Troponin-T, High Sensitivity 23(H) <=14 ng/L [facility] Comment: This patient's troponin T concentration was determined using the Kmaron 5th Generation troponin T assay. The 99th [...] can be found in the [facility] Test Catalog Troponin - [facility] Test Catalog Reference: Fourth [place] Definition of Myocardial Infarction. Journal of the [place] [employer] 2018;72:1975-0753 Blood 09/02/2023 3:18 AM EDT 09/02/2023 3:55 AM EDT Narrative Resulting Agency Comment Spec In Lab Archie Mcmanus MD CHEMISTRY ORDERABLES [facility] [place] [address] * (ABNORMAL) Basic Metabolic Panel (non-fasting) (09/02/2023 3:18 AM EDT) Pathologist [facility] Glucose 121 65 - 199 mg/dL [facility] ORDERABL ES [facility] [place] [address] * Magnesium (09/02/2023 3:18 AM EDT) Magnesium 0.91 0.69 - 1.07 mmol/L [facility] Blood 09/02/2023 3:18 AM EDT 09/02/2023 3:55 AM EDT Narrative Resulting Agency Comment Spec In Lab Eufemia Copeland MD CHEMISTRY ORDERABL ES Performing Organization Address City/[facility]/Z[place] [address] * Differential, Automated (09/01/2023 3:08 AM EDT) Neutrophil % 57.1 % [facility]OR[facility] Neutrophil Absolute 4.00 1.70 - 6.10 x10(3)/[facility] LABORATORY Lymph % 26.9 % [facility] Lymphocytes Abs 1.9 0.9 - 3.2 x10(3)/[facility] LABORATORY Monocyte % 11.4 % [facility] Monocyte Abs 0.8 0.3 - 0.9 x10(3)/[facility] LABORATORY Eos % 4.1 % [facility] Eosinophils Abs 0.3 0.0 - 0.4 x10(3)/[facility] LABORATORY Basophil % 0.4 % [facility] Baso Absolute 0.0 0.0 - 0.1 x10(3)/[facility] LABORATORY Immature Gran % 0.10 % [facility] Comment: Immature granulocytes(IG's)percentage and absolute count will include metamyelocytes, myelocytes, and promyelocytes. Blood smears from CBCs yielding IG's will be scanned manually for concordance. If this scan disagrees with the automated IG or if promyelocytes are noted, a manual differential will be performed. Immature Gran Absolute 0.01 0.00 - 0.04 x10(3)/[facility] LABORATORY Blood 09/01/2023 3:08 AM EDT 09/01/2023 3:18 AM EDT Narrative Resulting Agency Comment Spec In Lab Eufemia Copeland MD HEMATOLOGY ORDERAB LES Performing Organization Address City/[facility]/ZIP Co de Phone Number [facility] [place] [address] * (ABNORMAL) Hemogram (09/01/2023 3:08 AM EDT) [facility] White Blood Cell 7.0 4.0 - 9.5 x10(3)/[facility] LABORATORY Red Blood Cell 4.18 4.00 - 5.21 x10(6)/[facility] LABORATORY Hemoglobin 13.6 11.7 - 15.5 g/dL [facility] Hematocrit 39.8 35.7 - 45.8 % [facility] Mean Cell Volume 95.2(H) 82.6 - 94.4 fL [facility] Mean Cell Hemoglobin 32.5(H) 27.1 - 32.0 pg [facility] Mean Cell Hemoglobin Concentration 34.2 31.7 - 35.0 g/dL [facility] Platelet 232 145 - 357 x10(3)/[facility] LABORATORY RDW Standard Deviation 45.0 37.0 - 46.0 [facility] LABORATORY RDW coefficient of variation 13.1 11.5 - 14.1 % [facility] Mean Platelet Volume 10.2 7.6 - 12.9 fL [facility] NRBC% auto 0.0 % [facility] NRBC Absolute 0.000 0.000 - 0.000 x10(3)/[facility] LABORATORY Blood 09/01/2023 3:08 AM EDT 09/01/2023 3:18 AM EDT Narrative Resulting Agency Comment Spec In Lab Eufemia Copeland MD HEMATOLOGY ORDERAB LES [facility] [place] [address] * (ABNORMAL) Basic Metabolic Panel (non-fasting) (09/01/2023 3:08 AM EDT) [facility] Glucose 110 65 - 199 mg/dL [facility] [...] ORDERABL ES [facility] [place] [address] * Magnesium (09/01/2023 3:08 AM EDT) Magnesium 0.98 0.69 - 1.07 mmol/L [facility] Blood 09/01/2023 3:08 AM EDT 09/01/2023 3:18 AM EDT Narrative Resulting Agency Comment Spec In Lab Eufemia Copeland MD CHEMISTRY ORDERABL ES Performing Organization Address City/[facility]/ZIP Co de Phone Number [facility] [place] [address] * Magnesium (08/31/2023 5:03 PM EDT) Magnesium 0.95 0.69 - 1.07 mmol/L [facility] Blood 08/31/2023 5:03 PM EDT 08/31/2023 5:08 PM EDT Narrative Resulting Agency Comment Spec In Lab Eufemia Copeland MD CHEMISTRY ORDERABL ES Performing Organization Address [facility]/ZIP Co de Phone Number [facility] [place] [address] * Phosphorus (08/31/2023 5:03 PM EDT) Phosphorus 3.8 2.5 - 4.5 mg/dL [facility] Blood 08/31/2023 5:03 PM EDT 08/31/2023 5:08 PM EDT Narrative Resulting Agency Comment Spec In Lab Eufemia Copeland MD CHEMISTRY ORDERABL ES Performing Organization Address [facility]/ZIP Co de Phone Number [facility] [place] [address] * (ABNORMAL) Basic Metabolic Panel (non-fasting) (08/31/2023 [...] ORDERABL ES [facility] [place] [address] * Differential, Automated (08/31/2023 2:18 AM EDT) Neutrophil % 58.1 % [facility] Neutrophil Absolute 4.52 1.70 - 6.10 x10(3)/mcL [facility] Lymph % 25.8 % [facility] Lymphocytes Abs 2.0 0.9 - 3.2 x10(3)/[facility] LABORATORY Monocyte % 11.0 % [facility] Monocyte Abs 0.9 0.3 - 0.9 x10(3)/[facility] LABORATORY Eos % 4.0 % [facility] Eosinophils Abs 0.3 0.0 - 0.4 x10(3)/[facility] LABORATORY Basophil % 0.6 % [facility] Baso Absolute 0.0 0.0 - 0.1 x10(3)/[facility] LABORATORY Immature Gran % 0.50 % [facility] Comment: Immature granulocytes(IG's)percentage and absolute count will include metamyelocytes, myelocytes, and promyelocytes. Blood smears from CBCs yielding IG's will be scanned manually for concordance. If this scan disagrees with the automated IG or if promyelocytes are noted, a manual differential will be performed. Immature Gran Absolute 0.04 0.00 - 0.04 x10(3)/[facility] LABORATORY Blood 08/31/2023 2:18 AM EDT 08/31/2023 2:23 AM EDT Narrative Resulting Agency Comment Spec In Lab Archie Mcmanus MD HEMATOLOGY ORDERABLE S Performing Organization Address City/State/[facility] Co de Phone Number [facility] [place] [address] * (ABNORMAL) Hemogram (08/31/2023 2:18 AM EDT) White Blood Cell 7.8 4.0 - 9.5 x10(3)/mc L [facility] Red Blood Cell 3.97(L) 4.00 - 5.21 x10(6)/mc L [facility] Hemoglobin 12.6 11.7 - 15.5 g/dL [facility] Hematocrit 38.5 35.7 - 45.8 % [facility] Mean Cell Volume 97.0(H) 82.6 - 94.4 fL [facility] Mean Cell Hemoglobin 31.7 27.1 - 32.0 pg [facility] Mean Cell Hemoglobin Concentration 32.7 31.7 - 35.0 g/dL [facility] Platelet 218 145 - 357 x10(3)/mc L [facility] RDW Standard Deviation 47.5(H) 37.0 - 46.0 fL [facility] RDW coefficient of variation 13.2 11.5 - 14.1 % [facility] Mean Platelet Volume 10.6 7.6 - 12.9 fL [facility] NRBC% auto 0.0 % [facility] NRBC Absolute 0.000 0.000 - 0.000 x10(3)/mc L [facility] Blood 08/31/2023 2:18 AM EDT 08/31/2023 2:23 AM EDT Narrative Resulting Agency Comment Spec In Lab Archie Mcmanus MD HEMATOLOGY ORDERABLE S Performing Organization Address City/[facility]/ZIP Co de Phone Number [facility] [place] [address] * Magnesium (08/31/2023 2:18 AM EDT) Magnesium 0.96 0.69 - 1.07 mmol/L [facility] Blood 08/31/2023 2:18 AM EDT 08/31/2023 2:23 AM EDT Narrative Resulting Agency Comment Spec In Lab Eufemia Copeland MD CHEMISTRY ORDERABL ES Performing Organization Address City/[facility]/ZIP Co de Phone Number [facility] [place] [address] * (ABNORMAL) Basic Metabolic Panel (non-fasting) (08/31/2023 2:18 AM EDT) Glucose 114 65 - 199 mg/dL [facility] Comment:Diabetes: >=200 mg/d L plus symptoms Blood Urea Nitrogen 18 8 - 18 mg/dL [facility] Creatinine 1.37(H) 0.70 - 1.20 mg/dL [facility] Sodium 137 135 - 145 mmol/L [facility] Comment:result rechecked-bz Potassium 3.8 3.5 - 5.0 mmol/L [facility] Comment: result rechecked-bz Please note: ??Patients with WBC >100,000 may have falsely elevated Potassium levels. ??For accurate Potassium quantification in these patients send serum separator tube (gold top) for subsequent determinations. ??Contact the Clinical Chemistry Laboratory if there are any questions. Chloride 100 98 - 107 mmol/L [facility] Comment:result rechecked-bz Carbon Dioxide 25 22 - 31 mmol/L [facility] Anion Gap 12 5 - 15 mmol/L [facility] Calcium 9.6 8.5 - 10.5 mg/dL [facility] Comment:result rechecked-bz Est Glomerular Filtration [...] In Lab Archie Mcmanus MD CHEMISTRY ORDERAB[place] [address] * Differential, Automated (08/30/2023 3:09 AM EDT) Pathologist [facility] Neutrophil % 67.5 % [facility] Neutrophil Absolute 5.26 1.70 - 6.10 x10(3)/[facility] LABORATORY Lymph % 19.1 % [facility] Lymphocytes Abs 1.5 0.9 - 3.2 x10(3)/[facility] LABORATORY Monocyte % 9.4 % [facility] Monocyte Abs 0.7 0.3 - 0.9 x10(3)/[facility] LABORATORY Eos % 3.2 % [facility] Eosinophils Abs 0.2 0.0 - 0.4 x10(3)/[facility] LABORATORY Basophil % 0.4 % [facility] Baso Absolute 0.0 0.0 - 0.1 x10(3)/[facility] LABORATORY Immature Gran % 0.40 % [facility] Comment: Immature granulocytes(IG's)percentage and absolute count will include metamyelocytes, myelocytes, and promyelocytes. Blood smears from CBCs yielding IG's will be scanned manually for concordance. If this scan disagrees with the automated IG or if promyelocytes are noted, a manual differential will be performed. Immature Gran Absolute 0.03 0.00 - 0.04 x10(3)/[facility] LABORATORY Blood 08/30/2023 3:09 AM EDT 08/30/2023 3:21 AM EDT Narrative Resulting Agency Comment Spec In Lab Archie Mcmanus MD [place] [address] * (ABNORMAL) Hemogram (08/30/2023 3:09 AM EDT) Pathologist [facility] White Blood Cell 7.8 4.0 - 9.5 x10(3)/mc L [facility] Red Blood Cell 3.34(L) 4.00 - 5.21 x10(6)/mc L [facility] Hemoglobin 10.5(L) 11.7 - 15.5 g/dL [facility] Hematocrit 31.8(L) 35.7 - 45.8 % [facility] Mean Cell Volume 95.2(H) 82.6 - 94.4 fL [facility] Mean Cell Hemoglobin 31.4 27.1 - 32.0 pg [facility] Mean Cell Hemoglobin Concentration 33.0 31.7 - 35.0 g/dL [facility] Platelet 176 145 - 357 x10(3)/ L [facility] RDW Standard Deviation 46.5(H) 37.0 - 46.0 fL [facility] RDW coefficient of variation 13.2 11.5 - 14.1 % [facility] Mean Platelet Volume 10.9 7.6 - 12.9 [facility]ORY NRBC% auto 0.0 % [facility] NRBC Absolute 0.000 0.000 - 0.000 x10(3)/[facility] Blood 08/30/2023 3:09 AM EDT 08/30/2023 3:21 AM EDT Narrative Resulting Agency Comment Spec In Lab Archie Mcmanus MD HEMATOLOGY ORDERABLE S [facility] [place] [address] * Heparin (unfractionated) Level (08/30/2023 3:09 AM EDT) UF Heparin 0.46 IU/mL [facility] Comment: Heparin [...] Organization Address [facility]/ZIP Co de Phone Number [facility] [place] [place] [address] * Magnesium (08/30/2023 3:09 AM EDT) Magnesium 0.74 0.69 - 1.07 mmol/L [facility] Blood 08/30/2023 3:09 AM EDT 08/30/2023 3:20 AM EDT Narrative Resulting Agency Comment Spec In Lab Eufemia Copeland MD CHEMISTRY ORDERABL ES Performing Organization Address [facility] Co de Phone Number [facility] [place] [address] * (ABNORMAL) Basic Metabolic Panel (non-fasting) (08/30/2023 3:09 AM EDT) Glucose 99 65 - 199 mg/dL [facility] Comment:Diabetes: >=200 mg/d L plus symptoms Blood Urea Nitrogen 16 8 - 18 mg/dL [facility] Creatinine 1.03 0.70 - 1.20 mg/dL [facility] Sodium 145 135 - 145 mmol/L [facility] [...] questions. Chloride 114(H) 98 - 107 mmol/L [facility] Carbon Dioxide 19(L) 22 - 31 mmol/L [facility] Anion Gap 12 5 - 15 mmol/L [facility] Calcium 7.1(L) 8.5 - 10.5 mg/dL [facility] Comment:result rechecked-mg Est Glomerular Filtration [...] In Lab Archie Mcmanus MD CHEMISTRY ORDERABLES [facility] [place] [address] * Heparin (unfractionated) Level (08/29/2023 5:49 PM EDT) UF Heparin 0.52 IU/mL [facility] Comment: Heparin [...] Organization Address [facility]/ZIP Co de Phone Number [facility] [place] [phone] * EKG 12 Lead (08/29/2023 3:05 PM EDT) Ventricular rate 56 BPM MUSE SYSTEM Atrial Rate 56 BPM MUSE SYSTEM P-R Interval 172 ms MUSE SYSTEM QRS Duration 86 ms MUSE SYSTEM Q-T Interval 560 ms MUSE SYSTEM QTC Calculated (Bezet) 540 ms MUSE SYSTEM Calculated P Tynan 10 degrees MUSE SYSTEM Calculated R Tynan 27 degrees MUSE SYSTEM Calculated T Tynan 8 degrees MUSE SYSTEM INTERPRETATION Sinus bradycardia [...] Mcmanus MD ECG ORDERABLES Performing Organization Address [facility] Co de Phone Number MUSE SYSTEM * Heparin (unfractionated) Level (08/29/2023 11:48 AM EDT) UF Heparin 0.55 IU/mL [facility] Comment: Heparin [...] Lab Archie Mcmanus MD HEMATOLOGY ORDERABLE S [facility] [place] [address] * ECHO LMTD W CONTRAST W LMTD SPEC DOPP COLOR DOPP (08/29/2023 11:35 AM EDT) EF 50 HEARTLAB SYSTEM Anatomical Region Laterality Modality Cardiac Other 08/29/2023 9:47 AM EDT Narrative 08/29/2023 12:27 PM EDT [address] [place] [address] ? Echocardiogram Report Name: LOIDA MADRIGAL ? Study Date: 08/29/2023 09:47 AMBP: 100/55 mmHg ? Patient Location: [id number] 0483 A : 1970 ? Height: 163 cm ? Account: [id number] Age: 53 yrs ? Weight: 102 kg Gender: Female ?BSA: 2.1 m2 Ordering Physician: ARCHIE MCMANUS Referring Physician: SKIP HUMPHREY Performed By: Nalini Alvares RDCS Exam Location: [facility]. Interpretation Summary Left ventricle is normal in size. There is low normal global systolic function, with focal hypokinesis in the anteroseptum as ascribed. Right ventricle is not well visualized. No hemodynamically significant valve disease. Compared to prior studies over the past 6 months, there has been stable global LV systolic function, with oscillating regional function of the anterior wall. Procedure Limited - 76119. Image enhancement Optison was used for left [...] Note Jaspreet Kinsey MD - 08/29/2023 [address] [place] [address] Echocardiogram Report Name: LOIDA MADRIGAL Study Date: 409:47 AMBP: 100/55 mmHg Patient Location: [address] : 1970 Height: 163 cm Account: [id number] Age: 53 yrs Weight: 102 kg Gender: Female BSA: 2.1 m2 Ordering Physician: ARCHIE MCMANUS Referring Physician: SKIP HUMPHREY Performed By: Nalini Alvares RDCS Exam Location: [facility]. Interpretation Summary Left ventricle is normal in size. There is low normal global systolicfunction, with focal hypokinesis in the anteroseptum as ascribed. Right ventricle is not well visualized. No hemodynamically significant valve disease. Compared to prior studies over the past 6 months, there has been stableglobal LV systolic function, with oscillating regional function of the anteriorwall. Procedure Limited - 74518. Image enhancement Optison was used for left [...] (Bezet) 546 ms MUSE SYSTEM Calculated P Tynan 21 degrees MUSE SYSTEM Calculated R Tynan 21 degrees MUSE SYSTEM Calculated T Tynan 0 degrees MUSE SYSTEM INTERPRETATION Sinus bradycardia Possible Lateral infarct (cited on or before 29-JUL-2023) Prolonged QT Abnormal ECG When compared with ECG of 29-JUL-2023 08:47, Premature atrial complexes are no longer Present Criteria for Septal infarct are no longer Present Nonspecific T wave abnormality, improved in Inferior leads QT has lengthened Confirmed by MD Amelie, Jaspreet ([id number]) on 08/29/2023 3:51:39 PM MUSE SYSTEM 08/29/2023 6:04 AM EDT 08/29/2023 3:51 PM EDT Archie Mcmanus MD ECG ORDERABLES MUSE SYSTEM * CRP, acute inflammation (08/29/2023 4:01 AM EDT) C-Reactive Protein <3.0 <=4.9 mg/L [facility] Blood Venous Draw / Unknown 08/29/2023 4:01 AM EDT 08/29/2023 4:13 AM EDT Narrative Resulting Agency Comment Spec In Lab Eufemia Copeland MD CHEMISTRY ORDERABL ES Performing Organization Address [facility]/ZIP Co de Phone Number [facility] [place] [address] * Sedimentation rate (08/29/2023 4:01 AM EDT) Pathologist [facility] Sedimentation Rate Automated 11 2 - 39 mm/hr [facility] Comment: Effective February 15, 2019 [...] MD HEMATOLOGY ORDERAB LES Performing Organization Address [facility] Co de Phone Number [facility] [place] [address] * Green Tube HOLD (08/29/2023 4:01 AM EDT) [facility] Green Hold Sample in lab. [facility] Blood Venous Draw / Unknown 08/29/2023 4:01 AM EDT 08/29/2023 4:09 AM EDT Archie Mcmanus MD CHEMISTRY ORDERABLES Performing Organization Address [facility]/ZIP Co de Phone Number [facility] [place] [address] * Differential, Automated (08/29/2023 4:01 AM EDT) Neutrophil % 65.6 % [facility] Neutrophil Absolute 5.23 1.70 - 6.10 x10(3)/mcL [facility] Lymph % 21.4 % [facility] Lymphocytes Abs 1.7 0.9 - 3.2 x10(3)/[facility] Monocyte % 8.5 % [facility] Monocyte Abs 0.7 0.3 - 0.9 x10(3)/[facility] Eos % 4.0 % [facility] Eosinophils Abs 0.3 0.0 - 0.4 x10(3)/[facility] Basophil % 0.4 % [facility] Baso Absolute 0.0 0.0 - 0.1 x10(3)/[facility] Immature Gran % 0.10 % [facility] Comment: Immature granulocytes(IG's)percentage and absolute count will include metamyelocytes, myelocytes, and promyelocytes. Blood smears from CBCs yielding IG's will be scanned manually for concordance. If this scan disagrees with the automated IG or if promyelocytes are noted, a manual differential will be performed. Immature Gran Absolute 0.01 0.00 - 0.04 x10(3)/[facility] Blood 08/29/2023 4:01 AM EDT 08/29/2023 4:08 AM EDT Narrative Resulting Agency Comment Spec In Lab Archie Mcmanus MD HEMATOLOGY ORDERABLE S [facility] [place] [address] * (ABNORMAL) Hemogram (08/29/2023 4:01 AM EDT) White Blood Cell 8.0 4.0 - 9.5 x10(3)/ L [facility] Red Blood Cell 3.91(L) 4.00 - 5.21 x10(6)/mc L [facility] Hemoglobin 12.6 11.7 - 15.5 g/dL [facility] Hematocrit 37.6 35.7 - 45.8 % [facility] Mean Cell Volume 96.2(H) 82.6 - 94.4 fL [facility] Mean Cell Hemoglobin 32.2(H) 27.1 - 32.0 pg [facility] Mean Cell Hemoglobin Concentration 33.5 31.7 - 35.0 g/dL [facility] Platelet 197 145 - 357 x10(3)/mc L [facility] RDW Standard Deviation 46.7(H) 37.0 - 46.0 fL [facility] RDW coefficient of variation 13.3 11.5 - 14.1 % [facility] Mean Platelet Volume 10.4 7.6 - 12.9 fL [facility] NRBC% auto 0.0 % [facility] NRBC Absolute 0.000 0.000 - 0.000 x10(3)/mc L [facility] Blood 08/29/2023 4:01 AM EDT 08/29/2023 4:08 AM EDT Narrative Resulting Agency Comment Spec In Lab Archie Mcmanus MD HEMATOLOGY ORDERABLE S [facility] [place] [address] * (ABNORMAL) Heparin (unfractionated) Level (08/29/2023 4:01 AM EDT) UF Heparin 1.04(Crit ical) IU/mL [facility] [...] Lab Archie Mcmanus MD HEMATOLOGY ORDERABLE S [facility] [place] [address] * (ABNORMAL) Basic Metabolic Panel (non-fasting) (08/29/2023 4:01 AM EDT) Glucose 106 65 - 199 mg/dL [facility] Comment:Diabetes: >=200 mg/d L plus symptoms Blood Urea Nitrogen 24(H) 8 - 18 mg/dL [facility] Creatinine 1.18 0.70 - 1.20 mg/dL [facility] [...] In Lab Archie Mcmanus MD CHEMISTRY ORDERABLES [facility] [place] [address] * (ABNORMAL) Troponin (08/29/2023 12:31 AM EDT) Pathologist [facility] Troponin-T, High Sensitivity 31(H) <=14 ng/L [facility] [...] can be found in the [facility] Test Catalog Troponin - [facility] Test Catalog Reference: Fourth [place] Definition of Myocardial Infarction. Journal of the [place] [employer] 2018;72:4592-8298 Blood 08/29/2023 12:3 1 AM EDT 08/29/2023 12:35 AM EDT Narrative Resulting Agency Comment Spec In Lab Archie Mcmanus MD CHEMISTRY ORDERABLES Performing Organization Address City/[facility]/ZIP [place] [address] * Differential, Automated (08/28/2023 9:07 PM EDT) Neutrophil % 59.8 % [facility] Neutrophil Absolute 4.06 1.70 - 6.10 x10(3)/[facility] Lymph % 28.8 % [facility] Lymphocytes Abs 2.0 0.9 - 3.2 x10(3)/[facility] Monocyte % 5.7 % [facility] Monocyte Abs 0.4 0.3 - 0.9 x10(3)/[facility] Eos % 4.6 % [facility] Eosinophils Abs 0.3 0.0 - 0.4 x10(3)/[facility] Basophil % 0.7 % [facility] Baso Absolute 0.0 0.0 - 0.1 x10(3)/[facility] Immature Gran % 0.40 % [facility] Comment: Immature granulocytes(IG's)percentage and absolute count will include metamyelocytes, myelocytes, and promyelocytes. Blood smears from CBCs yielding IG's will be scanned manually for concordance. If this scan disagrees with the automated IG or if promyelocytes are noted, a manual differential will be performed. Immature Gran Absolute 0.03 0.00 - 0.04 x10(3)/[facility] Blood 08/28/2023 9:07 PM EDT 08/28/2023 9:12 PM EDT Narrative Resulting Agency Comment Spec In Lab Archie Mcmanus MD HEMATOLOGY ORDERABLE S [facility] [place] [address] * (ABNORMAL) Hemogram (08/28/2023 9:07 PM EDT) Pathologist [facility] White Blood Cell 6.8 4.0 - 9.5 x10(3)/mc L [facility] Red Blood Cell 4.39 4.00 - 5.21 x10(6)/ L [facility] Hemoglobin 14.1 11.7 - 15.5 g/dL [facility] Hematocrit 42.2 35.7 - 45.8 % [facility] Mean Cell Volume 96.1(H) 82.6 - 94.4 fL [facility] Mean Cell Hemoglobin 32.1(H) 27.1 - 32.0 pg [facility] Mean Cell Hemoglobin Concentration 33.4 31.7 - 35.0 g/dL [facility] Platelet 234 145 - 357 x10(3)/[facility] RDW Standard Deviation 47.3(H) 37.0 - 46.0 [facility] RDW coefficient of variation 13.3 11.5 - 14.1 % [facility] Mean Platelet Volume 10.3 7.6 - 12.9 fL [facility] NRBC% auto 0.0 % [facility] NRBC Absolute 0.000 0.000 - 0.000 x10(3)/[facility] Blood 08/28/2023 9:07 PM EDT 08/28/2023 9:12 PM EDT Narrative Resulting Agency Comment Spec In Lab Archie Mcmanus MD HEMATOLOGY ORDERABLE S [facility] [place] [address] * (ABNORMAL) Heparin (unfractionated) Level (08/28/2023 9:07 PM EDT) Pathologist [facility] UF Heparin 1.90(Crit ical) IU/mL [facility] [...] Lab Archie Mcmanus MD HEMATOLOGY ORDERABLE S [facility] [place] [address] * Lipid Panel (Reflex Direct LDL) (08/28/2023 9:07 PM EDT) [facility] Cholesterol, Total 203 mg/dL [facility] Comment: Desirable: ? <200 mg/dL Borderline High: 200-239 mg/dL Higher: ?>we=706 mg/dL Triglyceride 146 mg/dL [facility] Comment: Normal: ?<150 mg/dL Borderline High: 150-199 mg/dL High: ?200-499 mg/dL Very High: ? >io=064 mg/dL HDL Cholesterol 52 mg/dL [facility] Comment: Females: High Risk: <50 mg/dL Males: High Risk: <40 mg/dL LDL Cholesterol 122 mg/dL [facility] Comment: Desirable: ? <100 mg/dL Above Desirable: 100-129 mg/dL Borderline High: 130-159 mg/dL High: ?160-189 mg/dL Very High: ? >ta=368 mg/dL Lipid Interpretation See Note [facility] [...] ACC/AHA Guidelines (most recently Ysabel et al. [facility] 12/09/21): For individuals with atherosclerotic cardiovascular disease (ASCVD)or LDL >qb=879 mg/dL, use a high-intensity statin (40-80 mg [...] Mcmanus MD CHEMISTRY ORDERABLES Performing Organization Address City/[facility]/ZIP Co de Phone Number [facility] [place] [address] * (ABNORMAL) pro-Brain Natriuretic Peptide (08/28/2023 9:07 PM EDT) NT-proBNP 2,854(H) <=124 pg/mL [facility] Blood 08/28/2023 9:07 PM EDT 08/28/2023 9:12 PM EDT Narrative Resulting Agency Comment Spec In Lab Archie Mcmanus MD CHEMISTRY ORDERABLES Performing Organization Address [facility]/ZIP Co de Phone Number [facility] [place] [address] * (ABNORMAL) Troponin (08/28/2023 9:07 PM EDT) Troponin-T, High Sensitivity 31(H) <=14 ng/L [facility] [...] can be found in the [facility] Test Catalog Troponin - [facility] Test Catalog Reference: Fourth [place] Definition of Myocardial Infarction. Journal of the [place] [employer] 2018;72:[id number] Blood 08/28/2023 9:07 PM EDT 08/28/2023 9:12 PM EDT Narrative Resulting Agency Comment Spec In Lab Archie Mcmanus MD CHEMISTRY ORDERABLES Performing Organization Address City/[facility]/ZIP Co de Phone Number [facility] [place] [address] * (ABNORMAL) Hepatic Function Panel (08/28/2023 9:07 PM EDT) Protein, Total 6.6 6.1 - 8.0 g/dL [facility] Albumin 4.2 3.2 - 5.2 g/dL [facility] Aspartate Aminotransferase 32(H) 0 - 30 unit/L [facility] Alanine Aminotransferase 28 0 - 30 unit/L [facility] Alkaline Phosphatase 52 35 - 105 unit/L [facility] Bilirubin, Total 0.6 0.2 - 1.3 mg/dL [facility] Bilirubin, Direct 0.2 0.0 - 0.3 mg/dL [facility] Blood 08/28/2023 9:07 PM EDT 08/28/2023 9:12 PM EDT Narrative Resulting Agency Comment Spec In Lab Archie Mcmanus MD CHEMISTRY ORDERABLES Performing Organization Address [facility]/ZIP Co de Phone Number [facility] [place] [address] * (ABNORMAL) Basic Metabolic Panel (non-fasting) (08/28/2023 9:07 PM EDT) Glucose 95 65 - 199 mg/dL [facility] Comment:Diabetes: >=200 mg/d L plus symptoms Blood Urea Nitrogen 22(H) 8 - 18 mg/dL [facility] Creatinine 1.13 0.70 - 1.20 mg/dL [facility] [...] In Lab Archie Mcmanus MD CHEMISTRY ORDERABLES [facility] [place] [address] * Magnesium (08/28/2023 9:07 PM EDT) Magnesium 1.05 0.69 - 1.07 mmol/L [facility] Blood 08/28/2023 9:07 PM EDT 08/28/2023 9:12 PM EDT Narrative Resulting Agency Comment Spec In Lab Archie Mcmanus MD CHEMISTRY ORDERABLES Performing Organization Address City/State/[facility] Co de Phone Number [facility] [place] [address] documented in this encounter Visit Diagnoses Diagnosis [...] (Imdur) tablet 30 mg 30 mg, Oral, Every Morning, First dose on Wed09/03/23 at 0400, Until [...] 2.5 mg, Oral, ONCE, 1 dose, On [facility] 09/02/23 at 1600, Routine Given 09/02/2023 3:38 PM EDT 2.5 mg miconazole nitrate (Remedy Phytoplex) 2 % ointment Topical (Top), 2 TIMES DAILY, First dose on [facility] 09/02/23 at 1130, Until Discontinued Given 09/08/2023 8:41 [...] PRN, Starting on 08/29/23 at 1459, Until 08/30/23 at 1210, Constipation, Routine Given 08/29/2023 4:34 [...] RN) 2039 (Given - Provider: Jo Ann eBllo RN) miconazole nitrate (Remedy Phytoplex) 2 % ointment Topical (Top), 2 TIMES DAILY, First dose on [facility] 09/02/23 at 1130, Until Discontinued 0841 (Given - Provider: Chayo Painting RN)2099 (Not Given - Provider: Jo Ann Bello RN - Reason: Patient/family refused) 08 (Not Given - Provider: Tim Cardoza RN - Reason: Patient/family refused)2100 (Not Given - Provider: Jo nAn Bello RN - Reason: Patient/family refused) 09 (Not Given - Provider: Tim Cardoza RN - Reason: Patient/family refused) pantoprazole EC (Protonix) tablet 40 mg 40 mg, Oral, DAILY, First dose on [place] 08/29/23 at 0900, Until Discontinued 0840 (Given - Provider: Chayo Painting RN) 08 (Given - Provider: Tim Cardoza RN) 821 (Given - Provider: Tim Cardoza RN) ranolazine ER (Ranexa) tablet 500 mg 500 mg, Oral, 2 TIMES DAILY, First dose (after last modification) on [facility] 09/02/23 at 2100, Until Discontinued, DO [...] Oral, 2 TIMES DAILY, First dose on [facility] 08/28/23 at 2145, Until Discontinued, [...] Intravenous, 2 TIMES DAILY, First dose on [facility] 08/28/23 at 2145, Until Discontinued, Routine 0842 (Given - Provider: Chayo Painting RN)210 (Given - Provider: Jo Ann Bello, ERWIN) 0823 (Given - Provider: Tim Cardoza RN)2040 (Given - Provider: Jo Ann Bello RN) 0829 (Given - Provider: iTm Cardoza, ERWIN) spironolactone (Aldactone) tablet 25 mg [...] 08/28/23 at 2048, Until Wed09/10/23 at 193, for discomfort with [...] 1 MIN PRN, Starting on Wed08/28/23 at 2048, Until Wed09/10/23 at 193, flush, [...] RN) documented in this encounter Care Teams Tax Expert Relationship Specialty Start Date End Date Polo Pearce PA [facility] [address] [place] [address] PCP - General Internal Medicine 06/09/21 documented as of this encounter
--- OUTSIDE RECORDS SUMMARY | 2024-04-10 17:03 | XMS_ITS | Encounter Summary ---
Author Organization [facility] Address [address] [facility] [place] [address] Care Team Providers Care Technology Project Manager Name Role Phone Polo Pearce Primary Care Provider [phone] Encounter Details Date Type Department Care Team [...] th e electric, gas, oil, or water [employer] threatened to shut off services in your [...] 3:00 PM EDT Office [place] [address] [place] [address] documented as of this encounter Visit Diagnoses Not on filedocumented in this encounter Care Teams Technology Project Manager Relationship Specialty Start Date End Date Polo Pearce PA [address] [place] [address] PCP - General Internal Medicine 06/09/21 documented as of this encounter
--- OUTSIDE RECORDS SUMMARY | 2024-04-10 17:03 | XMS_ITS | Encounter Summary ---
Author Organization [facility] Address [address] [facility] [place] [address] Care Team Providers Care Pilot Plant Operator Name Role Phone Polo Pearce Primary Care Provider [phone] Encounter Details Date Type Department Care Team [...] th e electric, gas, oil, or water [employer] threatened to shut off services in your [...] a senior living (including now)? No 06/15/2023 IPV Inpatient Questions [...] 3:00 PM EDT Office [place] [address] [place] [address] documented as of this encounter Visit Diagnoses Not on filedocumented in this encounter Care Teams Pilot Plant Operator Relationship Specialty Start Date End Date Polo Pearce PA [address] [place] [address] PCP - General Internal Medicine 06/09/21 documented as of this encounter
--- OUTSIDE RECORDS SUMMARY | 2024-04-10 17:03 | XMS_ITS | Encounter Summary ---
Author Organization [facility] [place] [address] Care Team Providers Care Clay Washer Name Role Phone Polo Pearce Primary Care Provider [phone] Encounter Details Date Type Department Care Team (Late st Contact Info) Description 08/28/2023 External [place] [address] Social History Tobacco Use Types Packs/Day Years [...] time in the past 12 m [address] [place], were you homeless or living in a [...] 3:00 PM EDT Office [place] [address] [place] [address] documented as of this encounter Procedures Procedure Name Priority Date/Time Associated Diagnosis Comments ECG SCAN Routine 08/28/2023 11:53 AM EDT documented in this encounter Results * Scan Doc: ECG (08/28/2023 11:53 AM EDT) Historical Provider MD FLEMING MGR SCAN EX T ORDR/RSLT documented in this encounter Visit Diagnoses Not on filedocumented in this encounter Care Teams Clay Washer Relationship Specialty Start Date End Date Polo Pearce PA [address] [place] [address] PCP - General Internal Medicine 06/09/21 documented as of this encounter
--- OUTSIDE RECORDS SUMMARY | 2024-04-10 17:03 | XMS_ITS | Encounter Summary ---
[place] [address] Care Team Providers Care Patcher Bowling Ball Name Role Phone Polo Pearce Primary Care Provider [phone] Reason for Referral * Diagnostic Test (Routine) - Pending Review Specialty Diagnoses / Procedures Referred By Jayant harris Referred To Contact Diagnoses Mesenteric ischemia Procedures Duplex Study Visceral Arteries, Comp Judith Pickens APRN [facility] [place] [address] [facility] Vascular Lab [address] [place] [phone] Referral ID Status Reason Start Date Expiration Date Visits Requested Visits Authorized [id number] Pending Review Specialty Service Requested 08/03/2023 08/02/2024 1 1 Encounter Details Date Type Department Care Team (Late st Contact Info) Description 08/03/2023 9:30 AM EDT Office [place] [address] Judith Pickens APRN [facility] [place] [address] Mesenteric ischemia Social History Tobacco [...] this encounter Progress Notes * Judith Pickens, [employer] - 08/03/2023 9:30 AM EDT Vascular Follow-Up [...] as needed. fluticasone propionate (FLONASE) 50 mcg/actuation Moss, Suspension 1 spray by Each Nare route [...] Text Report Department: Vascular Surgery Lab Patient: [id number] (LOIDA ROQUE) CPT: [id number] Referring Physician: MAMIE LARRY Phone: Indications: S/p SMA stenting (07/01) one month f/u, ? patency Findings: Unilateral Waveform PSV cm/s EDV cm/s Patent Dary Visceral Aorta 71 14 Celiac Artery, Proximal Charlotte-Biphasic 100 22 Celiac Artery, Mid [place]-Biphasic 99 19 Celiac Artery, Distal [place]-Biphasic 94 18 Sup Mes Artery Proximal Bi-Triphasic [...] within mesenteric artery stents may differ from [place] arteries, with thresholds for diagnosis of significant stenosis likely being somewhat higher in stented arteries than [place].% To date, there is no evidence based consensus of stent velocity criteria. Therefore, the curre nt interpretation is based on [place] artery thresholds. Previous Celiac/Mesenteric Studies: Date SMA PSV EDV Celiac PSV EDV 427 91 782 76 5025/04/29 289 27 116 20 Current Exam 316 [...] Time Provider Department Center 08/17/2023 1:15 PM [facility] NM PET MOBILE MH Nuc Med [facility] Rad 08/25/2023 10:00 AM Mary Reyes APRN [facility] GASTRO [facility] 10/26/2023 4:00 PM Jaspreet Kinsey MD [facility] Cardio [facility] 11/22/2023 4:40 PM Porsha Mcdaniels MD [facility] CARD 4A [facility] Judith Pickens APRN Department of Vascular Surgery documented in this encounter Plan of Treatment Upcoming Encounters Date Type Department Care Team (Late st Contact Info) Description 07/19/2024 3:00 PM EDT Office [place] [address] [place] [address] documented as of this encounter Results * Duplex Study Visceral Arteries, Comp (10/08/2023 8:22 AM EDT) VB Text Report Department: Vascular Surgery Lab Patient: [id number] (LOIDA ROQUE) CPT: [id number] Referring Physician: JUDITH PICKENS ?? Phone: Indications: [...] within mesenteric artery stents may differ from [place] arteries, with thresholds for diagnosis of significant stenosis likely being somewhat higher in stented arteries than [place].% To date, there is no evidence based consensus of stent velocity criteria. Therefore, the current interpretation is based on [place] artery thresholds. Previous Celiac/Mesenteric Studies: Date ? [...] [facility] 10/08/2023 8:22 AM EDT Judith Pickens [employer] VASCULAR ORDERABLES [facility] documented in this encounter Visit Diagnoses Diagnosis Mesenteric ischemia Unspecified vascular insufficiency of intestine documented in this encounter Care Teams Patcher Bowling Ball Relationship Specialty Start Date End Date Polo Pearce PA [address] [place] [address] PCP - General Internal Medicine 06/09/21 documented as of this encounter
--- OUTSIDE RECORDS SUMMARY | 2024-04-10 17:03 | XMS_ITS | Encounter Summary ---
Author Organization [facility] Address [facility] [place] [address] Care Team Providers Care Architectural Associate Name Role Phone Polo Pearce Primary Care Provider [phone] Encounter Details Date Type Department Care Team (Late st Contact Info) Description 08/28/2023 1:05 PM EDT Ancillary Procedure Radiology Library at [facility] [place] [address] Jaspreet Kinsey MD [facility] [place] [address] Social History Tobacco Use Types Packs/Day Years Used Date Smoking Tobacco: Never Smokeless Tobacco: Never Alcohol Use Standard Drinks/Week Comments Never 0 (1 standard drink = 0.6 oz pur e alcohol) [facility] Utilities Answer Date Recorded In the past 12 months has [employer] electric, gas, oil, or water [employer] threatened to shut off services in your [...] 3:00 PM EDT Office [place] [address] [place] [address] documented as of this encounter Procedures Procedure Name Priority Date/Time Associated Diagnosis Comments FILM LIBRARY STORAGE ONLY CT CHEST Routine 08/28/2023 1:00 PM EDT documented in this encounter Results * Film Library- Storage Only CT Chest (08/28/2023 1:00 PM EDT) Narrative [facility] - 08/28/2023 1:00 PM EDT This exam is auto-finalizing. It's purpose is for storage only. Jaspreet Kinsey MD G FILM LIBRARY ORD ERABLES [facility] [place], [place] documented in this encounter Visit Diagnoses Not on filedocumented in this encounter Care Teams Architectural Associate Relationship Specialty Start Date End Date Polo Pearce PA [address] [place] [address] PCP - General Internal Medicine 06/09/21 documented as of this encounter
--- OUTSIDE RECORDS SUMMARY | 2024-04-10 17:03 | XMS_ITS | Encounter Summary ---
Author [place] [address] Care Team Providers Care Sales Representatives Name Role Phone Polo Pearce Primary Care Provider [phone] Reason for Visit * Auth/Cert (Routine) Specialty Diagnoses / Procedures Referred By Contac t Referred To Contact Diagnoses NSTEMI (non-ST elevated myocardial infarction) NSTEMI Procedures [place] [address] [facility] Referral ID Status Reason Start Date Expiration Date Visits Re quested Visits Authorized [id number] 1 1 Encounter Details Date Type Department Care Team (Latest Contact Info) Description 08/25/2023 1:05 PM EDT Laboratory Appointment Lab [address] [place] [address] Heart failure with preserved ejection fraction, unspecified HF chronicity; Chronic kidney disease, unspecified CKD stage; Altered bowel function; Depression, unspecified depression type Social History Tobacco Use Types Packs/Day Years Used Date Smoking Tobacco: Never Smokeless Tobacco: Never Alcohol Use Standard Drinks/Week Comments Never 0 (1 standard drink = 0.6 oz pur e alcohol) [facility] Utilities Answer Date Recorded In the past 12 months has [employer], gas, oil, or water company threatened to [...] 3:00 PM EDT Office Visit [place] [address] [place] [address] documented as of this encounter Procedures Procedure [...] unspecified HF chronicity HC DNA AB DS ([place]) Routine 08/25/2023 11:28 AM EDT Heart failure [...] CHEMISTRY ORDERABL ES Performing Organization Address [facility]/ZIP Co de Phone Number [facility] [place] [address] * IgG (08/25/2023 11:28 AM EDT) IgG 1,114 700 - 1,600 mg/dL [facility] Comment: Pediatric Reference Intervals obtained from the Caliper Reference Interval project. http://www.Biopharmacopae.ca/caliperproject/index.html Blood 08/25/2023 11:2 8 AM EDT 08/25/2023 11:37 AM EDT Narrative Resulting Agency Comment Spec In Lab Mary Gray Amy RANGELN CHEMISTRY ORDERABL ES Performing Organization Address [facility] Co de Phone Number [facility] [place] [address] * Tissue transglutaminase, IgA (08/25/2023 11:28 AM EDT) TTG IgA Ab 0.6 <=10.0 u/ml [facility] Comment: Negative: ??<7 units/mL Indeterminate: 7-10 units/mL Positive: ??>10 units/mL Blood 08/25/2023 11:2 8 AM EDT 08/26/2023 7:26 AM EDT Narrative Resulting Agency Comment Spec In Lab Mary Gray Amy NEUROSCIENCE DIRECTOR NA IMMUNOLOGY ORDERAB LES Performing Organization Address [facility] Co de Phone Number [facility] [place] [address] * (ABNORMAL) Basic Metabolic Panel (non-fasting) (08/25/2023 11:28 AM EDT) Glucose 111 65 - 199 mg/dL [facility] Comment:Diabetes: >=200 mg/d L plus symptoms Blood Urea Nitrogen 29(H) 8 - 18 mg/dL [facility] Creatinine 1.41(H) 0.70 - 1.20 mg/dL [facility] Sodium 140 135 - 145 mmol/L [facility] Potassium 3.6 3.5 - 5.0 mmol/L [facility] Comment: Please note: ??Patients with WBC >100,000 may have falsely elevated Potassium levels. ??For accurate Potassium quantification in these patients send serum separator tube (gold top) for subsequent determinations. ??Contact the Clinical Chemistry Laboratory if there are any questions. Chloride 99 98 - 107 mmol/L [facility] Carbon Dioxide 29 22 - 31 mmol/L [facility] Anion Gap 12 5 - 15 mmol/L [facility] Calcium 10.0 8.5 - 10.5 mg/dL [facility] Est Glomerular Filtration Rate 44(L) >=60 mL/min/1. 73 m?? [facility] [...] In Lab Lloyd Keating MD CHEMISTRY ORDERABLES [facility] [place] [address] * KATHRINE Antibody Screen (08/25/2023 11:28 AM EDT) KATHRINE Ab Screen Negative Negative [facility] Comment: This antinuclear antibody (KATHRINE) screen is a qualitative test performed using a fluoroenzyme immunoassay on the Shuoren Hitecha 250 analyzer. This screen is designed to [...] generated using a fluoroenzyme immunoassay on the AeternusLEDdia 250 analyzer. This quantitative test is designed to detect IgG antibodies directed against double stranded DNA in human serum. The presence of antibodies that recognize dsDNA is a highly specific marker for systemic lupus erythematosus. Please note that as of 12/30/2021 that this testing is performed by the Special [facility] at [facility] This change in testing location is associated with a change is testing method and reference intervals. Please review the results of this test in association with the posted reference intervals. Blood 08/25/2023 11:2 8 AM EDT 08/26/2023 7:26 AM EDT Narrative Resulting Agency Comment Spec In Lab Jaspreet Kinsey MD LAB SEND OUT ORDERAB LES [facility] [place] [address] * (ABNORMAL) Protein Electrophoresis, serum (08/25/2023 11:28 AM EDT) Total Prot Electrophoresis 7.5 6.1 - 8.0 g/dL [facility] Albumin Electrophoresis 4.62 3.20 - 5.20 g/dL [facility] Alpha 1 Globulin 0.20 0.10 - 0.30 g/dL [facility] Alpha 2 Globulin 0.92(H) 0.40 - 0.90 g/dL [facility] Beta Globulin 0.89 0.50 - 1.00 g/dL [facility] Gamma Globulin 0.88 0.50 - 1.30 g/dL [facility] M1 Band None Detected None Detected [facility] Blood 08/25/2023 11:2 8 AM EDT 08/25/2023 11:37 AM EDT Narrative Resulting Agency Comment Spec In Lab Jaspreet Kinsey MD CHEMISTRY ORDERABLES Performing Organization Address City/[facility]/ZIP Co de Phone Number [facility] [place] [address] * (ABNORMAL) Free Light Chains, Serum (08/25/2023 11:28 AM EDT) Verdon Free Light Chain 3.09(H) 0.72 - 2.75 mg/dL [facility] Lambda Free Light Chain 1.65 0.57 - 2.15 mg/dL [facility] Verdon/Lambda FLC Ratio 1.8727 0.4000 - 2.5800 [facility] Blood 08/25/2023 11:2 8 AM EDT 08/25/2023 11:36 AM EDT Narrative Resulting Agency Comment Spec In Lab Jaspreet Kinsey MD CHEMISTRY ORDERABLES Performing Organization Address [facility] Co de Phone Number [facility] [place] [address] * Iron and TIBC (08/25/2023 11:28 AM EDT) Iron 113 30 - 150 mcg/dL [facility] TIBC 338 250 - 450 mcg/dL [facility] Iron Saturation 33 20 - 50 % [facility] Blood 08/25/2023 11:2 8 AM EDT 08/25/2023 11:36 AM EDT Narrative Resulting Agency Comment Spec In Lab Jaspreet Kinsey MD CHEMISTRY ORDERABLES Performing Organization Address City/[facility]/ZIP Co de Phone Number [facility] [place] [address] * Ferritin (08/25/2023 11:28 AM EDT) Pathologist [facility] Ferritin 110 11 - 328 ng/mL [facility] Comment: Please note that as of 02/10/2023, the reference intervals for Ferritin have been updated. Blood 08/25/2023 11:2 8 AM EDT 08/25/2023 11:37 AM EDT Narrative Resulting Agency Comment Spec In Lab Jaspreet Kinsey MD CHEMISTRY ORDERABLES Performing Organization Address [facility] Co de Phone Number [facility] [place] [address] * Lyme IgG & IgM Antibody (08/25/2023 11:28 AM EDT) [facility] Lyme Antibody Negative Negative [facility] Lyme Ab Comment Negative result does not exclude possibility of infection. [facility] Comment: Please note that as of 07/14/2022 that this testing is performed by the [facility] at [facility] This change in testing location is associated with a change in testing methodology. Blood 08/25/2023 11:2 8 AM EDT 08/26/2023 7:26 AM EDT Narrative Resulting Agency Comment Spec In Lab Jaspreet Kinsey MD IMMUNOLOGY ORDERABLE S Performing Organization Address [facility] Co de Phone Number [facility] [place] [address] * Streptococcal Antibody Panel (08/25/2023 11:28 AM EDT) Pathologist [facility] Aso Titer (JULY) 25 0 - 530 IU/mL [facility] Comment: Test Performed by: [facility] [place] [address] Program Director Scouting: Nellie Haney Ph.D.; CLIA# [id number] Dnase B Ab (JULY) 146 0 - 300 unit/mL [facility] Comment: Test Performed by: [facility] [employer] [place] [id number] Program Director Scouting: Nellie Haney Ph.D.; CLIA# [id number] Blood 08/25/2023 11:2 8 AM EDT 08/25/2023 1:02 PM EDT Narrative Resulting Agency Comment Spec In Lab Jaspreet Kinsey MD LAB SEND OUT ORDERAB LES [facility] [place] [address] documented in this encounter Visit Diagnoses Diagnosis Heart failure with preserved ejection fraction, unspecified HF chronicity Chronic kidney disease, unspecified CKD stage Altered bowel function Other symptoms involving digestive system Depression, unspecified depression type documented in this encounter Care Teams Sales Representatives Relationship Specialty Start Date End Date Polo Pearce PA [address] [place] [address] PCP - General Internal Medicine 06/09/21 documented as of this encounter
--- OUTSIDE RECORDS SUMMARY | 2024-04-10 17:03 | XMS_ITS | Encounter Summary ---
Author Organization [facility] [place] [address] Care Team Providers Care Medical Referral Coordinator Name Role Phone Polo Pearce Primary Care Provider [phone] Reason for Referral * Diagnostic Test (Routine) - Closed Specialty Diagnoses / Procedures Referred By Contac t Referred To Contact Radiology Diagnoses Chest pain, unspecified type Procedures NM PET CT Cardiac Pharmacologic Stress CT Component Porsha Mcdaniels MD [facility] [place] [address] [place] [address] Referral ID Status Reason Start Date Expiration Date V isits Requested Visits Authorized [id number] Closed Specialty Service Requested 08/03/2023 10/01/2023 1 1 * Diagnostic Test (Routine) - Closed Specialty Diagnoses / Procedures Referred By Contac t Referred To Contact Radiology Diagnoses Chest pain, unspecified type Procedures NM PET CT Cardiac Pharmacologic Stress and Rest Porsha Mcdaniels MD [facility] [place] [address] [place] [address] Referral ID Status Reason Start Date Expiration Date V isits Requested Visits Authorized [id number] Closed Specialty Service Requested 08/03/2023 10/01/2023 1 1 Reason for Visit * Diagnostic Test (Routine) - Closed Specialty Diagnoses / Procedures Referred By Contac t Referred To Contact Radiology Diagnoses Chest pain, unspecified type Procedures NM PET CT Cardiac Pharmacologic Stress and Rest Porsha Mcdaniels MD [facility] [place] [address] [place] [address] Referral ID Status Reason Start Date Expiration Date V isits Requested Visits Authorized [id number] Closed Specialty Service Requested 08/03/2023 10/01/2023 1 1 Encounter Details Date Type Department Care Team (Latest Contact Info) Description 08/17/2023 11:52 AM EDT Hospital En[place] [address] Porsha Mcdaniels MD [facility] [place] [address] Chest pain, unspecified type Discharge Disposition: Home Social History Tobacco Use Types Packs/Day Years Used Date Smoking Tobacco: Never Smokeless Tobacco: Never Alcohol Use Standard Drinks/Week Comments Never 0 (1 standard drink = 0.6 oz pur e alcohol) [facility] Utilities Answer Date Recorded In the past 12 months has [employer], gas, oil, or water company threatened [...] 3:00 PM EDT Office Visit [place] [address] Mary Reyes, SENIOR MANUFACTURING [place] [address] documented as of this encounter Procedures Procedure [...] Component (08/17/2023 2:38 PM EDT) WORKSTATION ID [id number] RAD Anatomical Region Laterality Modality Positron Emissio [...] questions please contact the health emergency care attendant that requested your imaging first. ? Electronically signed by: Clay Stanton MD, [facility] ([phone]), at 08/18/2023 2:49 PM Narrative 08/18/2023 2:49 PM EDT EXAMINATION: NM PET CT CARDIAC PHARMACOLOGIC STRESS AND REST, [place] PET CT CARDIAC PHARMACOLOGIC STRESS CT COMPONENT [...] Coronary calcifications. Bilateral ground glass opacities are [id number] Procedure Note Clay Stanton MD - 08/18/2023 [...] Coronary calcifications. Bilateral ground glass opacities are [id number] IMPRESSION Moderate-sized scar in the apical septum [...] have questions please contactthe health emergency care attendant that requested your imaging first. Electronically signed by: Clay Stanton MD, [facility]([phone]), at 08/18/2023 2:49 PM Porsha Mcfarlane MD IMG PET ORDERABLES * NM PET CT Cardiac Pharmacologic Stress and Rest (08/17/2023 2:38 PM EDT) WORKSTATION ID [id number] RAD Anatomical Region Laterality Modality Positron Emissio [...] questions please contact the health emergency care attendant that requested your imaging first. ? Electronically signed by: Clay Stanton MD, [facility] ([phone]), at 08/18/2023 2:49 PM Narrative 08/18/2023 2:49 [...] Coronary calcifications. Bilateral ground glass opacities are [id number] Procedure Note Clay Stanton MD - 08/18/2023 [...] Coronary calcifications. Bilateral ground glass opacities are [id number] IMPRESSION Moderate-sized scar in the apical septum [...] have questions please contactthe health emergency care attendant that requested your imaging first. Electronically signed by: Clay Stanton MD, [facility]([phone]), at 08/18/2023 2:49 PM Porsha Mcfarlane MD [facility] PET ORDERABLES documented in this encounter Visit [...] Arm documented in this encounter Care Teams Medical Referral Coordinator Relationship Specialty Start Date End Date Polo Pearce PA [address] [place] [address] PCP - General Internal Medicine 06/09/21 documented as of this encounter
--- OUTSIDE RECORDS SUMMARY | 2024-04-10 17:03 | XMS_ITS | Encounter Summary ---
[place] [address] Care Team Providers Care Inside Sales Territory Manager Name Role Phone Polo Pearce Primary Care Provider [phone] Encounter Details Date Type Department Care Team (Late st Contact Info) Description 08/03/2023 8:30 AM EDT Tech [place] [address] Eladio Alexandra Mesenteric ischemia Social History Tobacco Use Types Packs/Day Years Used Date Smoking Tobacco: Never Smokeless Tobacco: Never Alcohol Use Standard Drinks/Week Comments Never 0 (1 standard drink = 0.6 oz pur e alcohol) [facility] Utilities Answer Date Recorded In the past 12 months has [employer], gas, oil, or water [id number] threatened to shut off services in your [...] 3:00 PM EDT Office [place] [address] [place] [address] documented as of this encounter Procedures Procedure Name Priority Date/Time Associated Diagnosis Comments MESENTERIC COMPLETE Routine 08/03/2023 8 :36 AM EDT Mesenteric ischemia documented in this encounter Results * Duplex Study Visceral Arteries, Comp (08/03/2023 8:36 AM EDT) VB Text Report Department: Vascular Surgery Lab Patient: [id number] (LOIDA ROQUE) CPT: [id number] Referring Physician: MAMIE MARX ?? Phone: Indications: S/p SMA stenting (07/01) one month f/u, ? patency Findings: Unilateral ? Waveform ? PSV cm/s ??EDV cm/s ??Patent ?? Dary Visceral Aorta ? 71 ?14 ? Celiac Artery, Proximal ??Parke-Biphasic ? 100 ?22 ? Celiac Artery, Mid ? Parke-Biphasic ?99 ?19 ? Celiac Artery, Distal ?Parke-Biphasic ?94 ?18 ? Sup Mes Artery Proximal [...] within mesenteric artery stents may differ from [place] arteries, with thresholds for diagnosis of significant stenosis likely being somewhat higher in stented arteries than [place].% To date, there is no evidence based consensus of stent velocity criteria. Therefore, the current interpretation is based on [place] artery thresholds. Previous Celiac/Mesenteric Studies: Date ? [...] intestine documented in this encounter Care Teams Inside Sales Territory Manager Relationship Specialty Start Date End Date Polo Pearce PA [address] [place] [address] PCP - General Internal Medicine 06/09/21 documented as of this encounter
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
--- OUTSIDE RECORDS SUMMARY | 2024-04-10 17:03 | XMS_ITS | Encounter Summary ---
Author Organization [facility] Address [facility] [place] [address] Care Team Providers Care Ground Source Heat Pump Technician Name Role Phone Polo Pearce Primary Care Provider [phone] Encounter Details Date Type Department Care Team (Late st Contact Info) Description 07/12/2023 Refill Cardiology at [address] [address] Jaspreet Kinsey MD [facility] [place] [address] Social History Tobacco Use Types Packs/Day Years Used Date Smoking Tobacco: Never Smokeless Tobacco: Never Alcohol Use Standard Drinks/Week Comments Never 0 (1 standard drink = 0.6 oz pur e alcohol) [facility] Utilities Answer Date Recorded In the past 12 months has e electric, gas, oil, or water [employer] threatened to shut off services in your [...] mg., 2-2x daily, none left. Patient uses [facility] in [place], [place]. She can be reached @ [phone]. documented in this encounter Plan of Treatment Upcoming Encounters Date Type Department Care Team (Late st Contact Info) Description 07/19/2024 3:00 PM EDT Office [place] [address] [place] [address] documented as of this encounter Visit Diagnoses Diagnosis Heart failure with preserved ejection fraction, unspecified HF chronicity documented in this encounter Care Teams Ground Source Heat Pump Technician Relationship Specialty Start Date End Date Polo Pearce PA [address] [place] [address] PCP - General Internal Medicine 06/09/21 documented as of this encounter
--- OUTSIDE RECORDS SUMMARY | 2024-04-10 17:03 | XMS_ITS | Encounter Summary ---
Author Organization [facility] Address [facility] [place] [address] Care Team Providers Care Panel Installer Name Role Phone Polo Pearce Primary Care Provider [phone] Encounter Details Date Type Department Care Team [...] th e electric, gas, oil, or water [employer] threatened to shut off services in your [...] 3:00 PM EDT Office [place] [address] [place] [address] documented as of this encounter Visit Diagnoses Not on filedocumented in this encounter Care Teams Panel Installer Relationship Specialty Start Date End Date Polo Pearce PA [address] [place] [address] PCP - General Internal Medicine 06/09/21 documented as of this encounter
--- OUTSIDE RECORDS SUMMARY | 2024-04-10 17:05 | XMS_ITS | Encounter Summary ---
Author Organization [facility] [place] [address] Care Team Providers Care Order Clerk Name Role Phone Polo Pearce Primary Care Provider [phone] Reason for Referral * Consultation (Routine) - Closed Specialty Diagnoses / Procedures Referred By Jayant harris Referred To Contact Gastroenterology Diagnoses Chronic abdominal pain chronic abd pain after meals Porsha San MD [facility] [place] [address] [facility] [address] [place] [address] Referral ID Status Reason Start Date Expiration Date V isits Requested Visits Authorized [id number] Closed Consult, Test & Treat 07/08/2023 07/07/2024 1 1 Encounter Details Date Type Department Care Team (Late st Contact Info) Description 07/08/2023 Orders [place] [address] Porsha San MD [facility] [place] [address] Chronic abdominal pain Social History [...] 3:00 PM EDT Office [place] [address] Mary Reyes, [place] [address] Scheduled Referrals Name Type Priority Associated Diagnoses Order Schedule Referral to Gastroenterology Outpatient Referral Routine Chronic abdominal pain Ordered: 07/08/2023 documented as of this encounter Visit Diagnoses Diagnosis Chronic abdominal pain Abdominal pain, unspecified site documented in this encounter Care Teams Order Clerk Relationship Specialty Start Date End Date Polo Pearce PA [address] [address] PCP - General Internal Medicine 06/09/21 documented as of this encounter
--- OUTSIDE RECORDS SUMMARY | 2024-04-10 17:05 | XMS_ITS | Encounter Summary ---
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 Role Phone Polo Pearce Primary Care Provider [phone] Reason for Referral * Consultation (Routine) - Duplicate Referral Specialty Diagnoses / Procedures Referred By Jayant harris Referred To Contact Gastroenterology Diagnoses Mesenteric artery stenosis Terrence Keating MD [facility] [place] [address] [facility] [address] [place] [phone] Referral ID Status Reason Start Date Expiration Date Visits Requested Visits Authorized [id number] Duplicate Referral Consult, Test & Treat 07/09/2023 07/08/2024 1 1 * Home Health Care (Routine) - Closed Specialty Diagnoses / Procedures Referred By Contjulita t Referred To Contact Diagnoses Paroxysmal atrial fibrillation Chest pain, unspecified type Heart failure with preserved ejection fraction, unspecified HF chronicity Terrence Keating MD [facility] [place] [address] [facility] [address] [place] [address] Referral ID Status Reason Start Date Expiration Date V isits Requested Visits Authorized [id number] Closed Consult, Test & Treat 07/09/2023 01/05/2024 999 999 Reason for Visit * Auth/Cert (Routine) Specialty Diagnoses / Procedures Referred By Contac t Referred To Contact Diagnoses NSTEMI (non-ST elevated myocardial infarction) NSTEMI Procedures ER IPI Terrence Keating MD [facility] [place] [place] [address] [facility] Referral ID Status Reason Start Date Expiration Date Visits Re quested Visits Authorized [id number] 1 1 Encounter Details Date Type Department Care Team (Latest Contact Info) Description 06/14/2023 11:01 PM EDT - 07/09/2023 4:44 PM EDT Hospital Encounter Heart and Vascular Unit Level 4 Wing B at [place] [phone] Jaspreet Kinsey MD [facility] [place] [address] Lino Calles MD [facility] [place] [address] Eufemia Copeland MD [facility] [place] [address] Ailyn Irvin MD Kussaga, Frank M, MD [facility] [place] [address] Paroxysmal atrial fibrillation; Chest pain, unspecified type; [...] Loida Roque Patient Age: 53 y.o. Language: Czech Race: White Ethnicity: Not nor Admit date: 06/14/2023 Discharge date and time: 07/09/2023 3:31 PM Attending Physician: Terrence Keating MD Discharge Physician: Terrence Keating MD Follow-up Recommendations for Providers: Inpatient Provider Contact Information: For questions regarding this document or issues relating to this hospitalization on the Medical Service, please contact your inpatient physician through the [facility] Prison Officer . Issues afterhours and on weekends [...] have questions please contact the health director long term care that requested your imaging first. Electronically signed by: Wilton Cabrera MD, [facility] ([phone]), at 06/17/2023 5:[address] Abdomen & [...] have questions please contact the health director long term care that requested your imaging first. Electronically signed by: RONDA DUFFY MD, [facility] ([phone]), at 06/22/2023 7:59 AM XR Chest One [...] have questions please contact the health director long term care that requested your imaging first. Electronically signed by: Itz Hayward MD, [facility] ([phone]), at 06/22/2023 11:47 AM US Abdomen Limited (Exam End: 06/28/2023 12:22 PM) Result Value WORKSTATION ID [id number] Narrative Abdominal (Signed Final 06/28/2023 02:08 pm) PATIENT INFO: ID #: [id number] : [birth year] (53 yrs)(F) Name: LOIDA Visit Date: 06/28/2023 12:20 pm JUDE PERFORMED BY: Attending: Sigrid Owens MD Resident: Rafaela Huddleston MD Performed By: Deena Cabrera RDMS Referred By: AILYN IRVIN Location: Many SERVICE(S) PROVIDED: UABDLIM - Abdominal Limited Survey Single [id number] Organ or Quadrant - [id number] INDICATIONS: RUQ pain, R/o Gall bladder colic, [...] signed by: Sigrid Owens MD, [facility] ([phone]), at 06/28/2023 2:02 PM Thank you for letting us participate in the care of this patient. If you are a health care provider and have any questions regarding this report, please contact the number above. For patients who have questions, please contact the health director long term care that requested your imaging first. Sigrid Owens, [facility] Spinner Cap Frame Electronically Signed Final Report 06/28/2023 02:08 pm [...] anesthetic: 10 cc 1% lidocaine Heparin: Yes 92920 Units Protamine: No mg Antibiotics: Ancef Fluoro [...] We exchanged the sheath for a 7 [place] guide changer steerable sheath over a stiff wire. A Glidewire and Kumpe catheter were used to selectively cannulate the superior mesenteric artery. Direct angiography of the superior mesenteric artery was performed, confirming the results of the nonselective aortography performed. The lesion was predilated with a 4 mm x 40 mm Weld balloon, and then a 6 mm X [...] 07/03/2023 3:18 PM) Result Value WORKSTATION ID [id number] Narrative EXAMINATION: XR CHEST ONE VIEW CLINICAL [...] have questions please contact the health director long term care that requested your imaging first. Electronically signed by: Itz Hayward MD, [facility] ([phone]), at 07/03/2023 3:27 PM Echocardiogram from 06/22/2023 [...] pain. The patient was recently admitted at [facility] from 04/16/23 to 04/19/2023 as a transfer from [facility] due to exertional chest [...] etiology, patient was accepted for transfer to [facility]. Brief Summary: Loida Roque is a 53 [...] with positive cardiac markers. Patient transferred to [facility] for further work-up and evaluation. On arrival, [...] ~450). - R/o arrhythmic burden contribution with olmano on discharge. - Outpatient F/u with once [...] Administered Date(s) Administered Moderna Covid-19 Monovalent 12Yr+ (Building Rigger 100mcg) 03/06/2020, 04/03/2020 Discharge Medications: Your Medications [...] weight gain + increasing shortness of breath. [id number] minutes prior to a dose of torsemide). [...] appointments: During 8am-5pm Wednesday through Wednesday call [phone] to speak with a nurse in the cardiology clinic All other times call [phone] and ask to speak to the angle bender rail operations controller. Return to work: One week Driving: No driving for 48 hours after catheterization. Follow up Appointments: PCP JOCY Franco [phone] 11:30am on July 19. Cardiology office will call you regarding your appointment with Dr. Kinsey. General Instructions None Future Appointments and Orders Future Appointments and Orders Future Appointments Provider Department Dept Phone 07/26/2023 3:20 PM Jaspreet Kinsey MD Cardiology at [place] Arrive at: [facility] [address] [phone] 07/29/2023 8:00 AM Porsha Mcdaniels MD Cardiology at [facility] Arrive at: [facility] [address] [phone] 08/03/2023 8:30 AM Eladio Boyer Vascular Lab at [facility] Arrive at: [place] [facility] [address] [phone] 08/03/2023 9:30 AM Judith Butler APRN Vascular Surgery at [facility] Arrive at: [place] [facility] [address] [phone] 09/02/2023 2:40 PM Jaspreet Kinsey MD Cardiology at [place] Arrive at: [facility] [address] [phone] Discharge References/Attachments None Greater than 30 minutes was spent on this discharge including documentation, [id number] time withthe patient, patient education, sales order [...] appointments: During 8am-5pm Wednesday through Wednesday call [phone] to speak with a nurse in the cardiology clinic All other times call [phone] and ask to speak to the angle bender rail operations controller. Return to work: One week Driving: No driving for 48 hours after catheterization. Follow up Appointments: PCP JOCY Franco [phone] 11:30am on July 19. Cardiology office will [...] as needed. fluticasone propionate (FLONASE) 50 mcg/actuation Barney, Suspension 1 spray by Each Nare route [...] 4pm, per the team. Please refer to: [facility] [address] [place] [address] PHONE: [phone] FAX: [phone] *For RN RICARDO: 07/09/23 Nani Mendoza MSN-Ed, RN ACM Cardiac Research Nurse and Neuro/Neurocrit/ENT Layaway Clerk. * Mary Castaneda RCP - 07/09/2023 4:37 [...] 1:00 PM EDT CV HOSPITALIST 2 - [facility] DAILY PROGRESS NOTE Page [phone] to reach a provider 28/09 Admit Date: [...] 93.7 93.9 Recent Labs 07/08/23 0552 07/07/23 03507/06/23 0354 07/05/23 1744 07/05/23 0505 07/04/23 0347 [...] with positive cardiac markers. Patient transferred to [facility] for further work-up and evaluation. Presented with [...] prn. Diet: Daily Healthy Menu Choices/Cardiac diet ([facility]-Diet) DVT Prophylaxis: DOAC heparin gtt. 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 Patient transferred to [facility] for further work-up and evaluation. Presented with [...] Score: 24 PT: OT: PCP JOCY Franco [phone] Terrence Keating MD 07/07/2023 * Terrence Keating MD - 07/06/2023 11:00 AM EDT CV HOSPITALIST 2 - [facility] DAILY PROGRESS NOTE Page [phone] to reach a provider 28/09 Admit Date: [...] with positive cardiac markers. Patient transferred to [facility] for further work-up and evaluation. Presented with [...] hospital Diet: Daily Healthy Menu Choices/Cardiac diet ([facility]-Diet) NPO diet (Give Meds) DVT Prophylaxis: DOAC Code status: Attempt Cardiopulmonary Resuscitation - Inpatient Disposition: Discharge Location: AM-PAC Basic Mobility Raw Score: 24 PT: OT: PCP JOCY Franco [phone] Terrence Keating MD 07/06/2023 * Ana Paula [...] 11:00 AM EDT CV HOSPITALIST 2 - [facility] DAILY PROGRESS NOTE Page [phone] to reach a provider 28/09 Admit Date: [...] with positive cardiac markers. Patient transferred to [facility] for further work-up and evaluation. Presented with [...] hospital Diet: Daily Healthy Menu Choices/Cardiac diet ([facility]-Diet) DVT Prophylaxis: DOAC Code status: Attempt Cardiopulmonary Resuscitation - Inpatient Disposition: Discharge Location: AM-PAC Basic Mobility Raw Score: 24 PT: OT: PCP JOCY Franco [phone] Terrence Keating MD 07/05/2023 * Lino Calles MD - 07/04/2023 9:09 AM EDT CV HOSPITALIST 2 - [facility] DAILY PROGRESS NOTE Page [phone] to reach a provider 28/09 Admit Date: [...] with positive cardiac markers. Patient transferred to [facility] for further work-up and evaluation. On arrival, [...] migraine Diet: Daily Healthy Menu Choices/Cardiac diet ([facility]-Diet) DVT Prophylaxis: DOAC Code status: Attempt Cardiopulmonary Resuscitation - Inpatient Disposition: Discharge Location: AM-PAC Basic Mobility Raw Score: 24 PT: OT: PCP JOCY Franco [phone] Lino Calles MD 07/04/2023 * Ana Paula [...] 8:59 AM EDT CV HOSPITALIST 2 - [facility] DAILY PROGRESS NOTE Page [phone] to reach a provider 28/09 Admit Date: [...] with positive cardiac markers. Patient transferred to [facility] for further work-up and evaluation. On arrival, [...] PRN Diet: Daily Healthy Menu Choices/Cardiac diet ([facility]-Diet) DVT Prophylaxis: DOAC Code status: Attempt Cardiopulmonary Resuscitation - Inpatient Disposition: Discharge Location: AM-PAC Basic Mobility Raw Score: 24 PT: OT: PCP JOCY Franco [phone] Lino Calles MD 07/03/2023 * Van Muse [...] 9:55 AM EDT CV HOSPITALIST 2 - [facility] DAILY PROGRESS NOTE Page [phone] to reach a provider 28/09 Admit Date: [...] with positive cardiac markers. Patient transferred to [facility] for further work-up and evaluation. On arrival, [...] PRN Diet: Daily Healthy Menu Choices/Cardiac diet ([facility]-Diet) DVT Prophylaxis: DOAC Code status: Attempt Cardiopulmonary Resuscitation - Inpatient Disposition: Discharge Location: AM-PAC Basic Mobility Raw Score: 24 PT: OT: PCP JOCY Franco [phone] Lino Calles MD 07/02/2023 * Jaspreet Griffith [facility] - 07/02/2023 6:35 AM EDT Respiratory [...] 7:39 AM EDT CV HOSPITALIST 2 - [facility] DAILY PROGRESS NOTE Page [phone] to reach a provider 28/09 Admit Date: [...] with positive cardiac markers. Patient transferred to [facility] for further work-up and evaluation. On arrival, [...] PRN Diet: Daily Healthy Menu Choices/Cardiac diet ([facility]-Diet) NPO diet (Give Meds) DVT Prophylaxis: DOAC Code status: Attempt Cardiopulmonary Resuscitation - Inpatient Disposition: Discharge Location: AM-PAC Basic Mobility Raw Score: 24 PT: OT: PCP JOCY Franco [phone] Terrence Keating MD 07/01/2023 * Terrence Keating MD - 06/30/2023 8:00 AM EDT CV HOSPITALIST 2 - [facility] DAILY PROGRESS NOTE Page [phone] to reach a provider 28/09 Admit Date: [...] with positive cardiac markers. Patient transferred to [facility] for further work-up and evaluation. On arrival, [...] Score: 24 PT: OT: PCP JOCY Franco [phone] Terrence Keating MD 06/30/2023 * Terrence Keating MD - 06/29/2023 4:29 PM EDT CV HOSPITALIST 2 - [facility] DAILY PROGRESS NOTE Page [phone] to reach a provider 28/09 Admit Date: [...] She is alert. Labs: Recent Labs 06/29/23 02306/28/232 06/27/23 0434 06/26/23 0406 06/25/23 0150 WBC [...] with positive cardiac markers. Patient transferred to [facility] for further work-up and evaluation. On arrival, [...] Score: 24 PT: OT: PCP JOCY Franco [phone] Terrence Keating MD 06/29/2023 * Jo Ann Sharpe - 06/29/2023 2:54 PM EDT Nutrition Services Note - Low Nutrition Acuity Loida Roque is a 53 y.o. female Reason for intervention: follow up Nutrition Plan: Continue current diet. Encourage good PO intake. Spironolactone noted. Abdominal pain after eating noted. Encouragement and support provided. Pt screened for follow-up visit and editorial writer met with Pt at bedside. Pt [...] consulted in the interim. Jo Ann Sharpe Director Digital * Mary Castaneda RCP - 06/29/2023 3:55 [...] 1:53 PM EDT CV HOSPITALIST 2 - [facility] DAILY PROGRESS NOTE Page [phone] to reach a provider 28/09 Admit Date: [...] with positive cardiac markers. Patient transferred to [facility] for further work-up and evaluation. On arrival, [...] Score: 24 PT: OT: PCP JOCY Franco [phone] * Ailyn Irvin MD - 06/27/2023 9:40 AM EDT CV HOSPITALIST 2 - [facility] DAILY PROGRESS NOTE Page [phone] to reach a provider 28/09 Admit Date: [...] with positive cardiac markers. Patient transferred to [facility] for further work-up and evaluation. On arrival, [...] Score: 24 PT: OT: PCP JOCY Franco [phone] * Ailyn Irvin MD - 06/26/2023 12:42 PM EDT CV HOSPITALIST 2 - [facility] DAILY PROGRESS NOTE Page [phone] to reach a provider 28/09 Admit Date: [...] with positive cardiac markers. Patient transferred to [facility] for further work-up and evaluation. On arrival, [...] Score: 24 PT: OT: PCP JOCY Franco [phone] * Mitali Manuel [facility] - 06/26/2023 5:43 AM EDT Respiratory [...] 1:39 PM EDT CV HOSPITALIST 2 - [facility] DAILY PROGRESS NOTE Page [phone] to reach a provider 28/09 Admit Date: [...] with positive cardiac markers. Patient transferred to [facility] for further work-up and evaluation. On arrival, [...] Score: 24 PT: OT: PCP JOCY Franco [phone] * Edith Chandler RCP - 06/24/2023 10:40 [...] 4:38 PM EDT CV HOSPITALIST 2 - [facility] DAILY PROGRESS NOTE Page [phone] to reach a provider 28/09 Admit Date: [...] No cranial nerve deficit. Labs: Recent Labs 06/24/2333706/23/2341106/22/23 0434 06/21/2332406/20/23 033 WBC 6.9 8.2 7.5 [...] with positive cardiac markers. Patient transferred to [facility] for further work-up and evaluation. On arrival, [...] Score: 24 PT: OT: PCP JOCY Franco [phone] * Aaron Rosado RCP - 06/24/2023 1:55 [...] 1:03 PM EDT CV HOSPITALIST 2 - [facility] DAILY PROGRESS NOTE Page [phone] to reach a provider 28/09 Admit Date: [...] with positive cardiac markers. Patient transferred to [facility] for further work-up and evaluation. On arrival, [...] Score: 24 PT: OT: PCP JOCY Franco [phone] * Ciera Valdovinos RD - 06/22/2023 2:38 PM EDT Nutrition Services Note - Low Nutrition Acuity Loida Roque is a 53 y.o. female Reason for intervention: hospital day 9 Nutrition Plan: Cardiac Diet Record % PO intake Monitor weight - diuresis noted Patient screened for hospital length of stay nutrition visit, editorial writer met with Loida at bedside. Loida reports excellent appetite, eating 100% of meals. She notes that she has not skipped any meals inpatient and has no current nutrition related questions. She notes UBW 217-218 lbs and says that current weight is higher than normal for her. Diuresis noted. Active Orders Diet Daily Healthy Menu Choices/Cardiac diet ([facility]-Diet) Frequency: Effective Now Number of Occurrences: Until [...] course unless consulted in the interim. Ciera Valodvinos RD Clinical Dietitian * Ailyn Irvin MD - 06/22/2023 1:35 PM EDT CV HOSPITALIST 2 - [facility] DAILY PROGRESS NOTE Page [phone] to reach a provider 28/09 Admit Date: [...] have questions please contact the health director long term care that requested your imaging first. Electronically signed by: RONDA DUFFY MD, [facility] ([phone]), at 06/22/2023 7:59 AM XR Chest One View (Exam End: 06/22/2023 11:42 AM) Impression No acute pulmonary findings Thank you for letting us participate in the care of this patient. If you are a health care provider and have any questions regarding this report, please contact the number below. For patients who have questions please contact the health director long term care that requested your imaging first. Electronically signed by: Itz Hayward MD, [facility] ([phone]), at 06/22/2023 11:47 AM Assessment: Loida Roque [...] with positive cardiac markers. Patient transferred to [facility] for further work-up and evaluation. On arrival, [...] above Diet: Daily Healthy Menu Choices/Cardiac diet ([facility]-Diet) DVT Prophlaxis: eliquis Code status: Attempt Cardiopulmonary Resuscitation - Inpatient Disposition: Discharge Planning: AM-PAC Basic Mobility Raw Score: 24 PT: OT: PCP JOCY Franco [phone] * Eufemia Copeland MD - 06/21/2023 11:02 AM EDT CV HOSPITALIST 2 - [facility] DAILY PROGRESS NOTE Page [phone] to reach a provider 28/09 Admit Date: [...] with positive cardiac markers. Patient transferred to [facility] for further work-up and evaluation. On arrival, [...] above Diet: Daily Healthy Menu Choices/Cardiac diet ([facility]-Diet) DVT Prophlaxis: eliquis Code status: Attempt Cardiopulmonary Resuscitation - Inpatient Disposition: Discharge Planning: AM-PAC Basic Mobility Raw Score: 24 PT: OT: PCP JOCY Franco [phone] * Eufemia Copeland MD - 06/20/2023 8:06 AM EDT CV HOSPITALIST 2 - [facility] DAILY PROGRESS NOTE Page [phone] to reach [...] with positive cardiac markers. Patient transferred to [facility] for further work-up and evaluation. On arrival, [...] above Diet: Daily Healthy Menu Choices/Cardiac diet ([facility]-Diet) DVT Prophlaxis: eliquis Code status: Attempt Cardiopulmonary Resuscitation - Inpatient Disposition: Discharge Planning: AM-PAC Basic Mobility Raw Score: 24 PT: OT: PCP JOCY Franco [phone] * Eufemia Copeland MD - 06/19/2023 10:00 AM EDT CV HOSPITALIST 2 - [facility] DAILY PROGRESS NOTE Page [phone] to reach a provider 28/09 Admit Date: [...] with positive cardiac markers. Patient transferred to [facility] for further work-up and evaluation. On arrival, [...] above Diet: Daily Healthy Menu Choices/Cardiac diet ([facility]-Diet) DVT Prophlaxis: eliquis Code status: Attempt Cardiopulmonary Resuscitation - Inpatient Disposition: Discharge Planning: AM-PAC Basic Mobility Raw Score: 24 PT: OT: PCP JOCY Franco [phone] * Eufemia Copeland MD - 06/18/2023 9:02 AM EDT CV HOSPITALIST 2 - [facility] DAILY PROGRESS NOTE Page [phone] to reach a provider 28/09 Admit Date: [...] with positive cardiac markers. Patient transferred to [facility] for further work-up and evaluation. On arrival, [...] above Diet: Daily Healthy Menu Choices/Cardiac diet ([facility]-Diet) DVT Prophlaxis: eliquis Code status: Attempt Cardiopulmonary Resuscitation - Inpatient Disposition: Discharge Planning: AM-PAC Basic Mobility Raw Score: 24 PT: OT: PCP JOCY Franco [phone] * Eufemia Copeland MD - 06/17/2023 12:02 PM EDT CV HOSPITALIST 2 - [facility] DAILY PROGRESS NOTE Page [phone] to reach a provider 28/09 Admit Date: [...] with positive cardiac markers. Patient transferred to [facility] for further work-up and evaluation. On arrival, [...] above Diet: Daily Healthy Menu Choices/Cardiac diet ([facility]-Diet) DVT Prophlaxis: eliquis Code status: Attempt Cardiopulmonary Resuscitation - Inpatient Disposition: Discharge Planning: AM-PAC Basic Mobility Raw Score: 24 PT: OT: PCP JOCY Franco [phone] * Calista Hernandez RT - 06/17/2023 4:36 [...] 3:25 PM EDT CV HOSPITALIST 2 - [facility] DAILY PROGRESS NOTE Page [phone] to reach a provider 28/09 Admit Date: [...] with positive cardiac markers. Patient transferred to [facility] for further work-up and evaluation. On arrival, [...] above Diet: Daily Healthy Menu Choices/Cardiac diet ([facility]-Diet) DVT Prophlaxis: eliquis Code status: Attempt Cardiopulmonary Resuscitation - Inpatient Disposition: Discharge Planning: AM-PAC Basic Mobility Raw Score: 24 PT: OT: PCP JOCY Franco [phone] documented in this encounter H&P Notes * [...] to display for this patient. HPI Loida Jude is a 53 y.o. female with hx [...] pain. The patient was recently admitted at [facility] from 04/16/23 to 04/19/2023 as a transfer from [facility] due to exertional chest [...] etiology, patient was accepted for transfer to [facility]. 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 fluticasone propionate (FLONASE) 50 mcg/actuation Barney, Suspension 1 spray by Each Nare route [...] if hypotensive / cardiogenic shock / inferior ME / sildenafil within past 24 hours) - [...] for discharge to home with family support, [facility] for RN and OP Cardi clinic for f/u. Needs for Transition of Care: Plan for discharge is: Home w/ Services Outpatient Agency/Support Group Needs: None Home Health Services: Registered Nurse Agency Referrals & Follow-up Care: Contact information for follow-up Home Health & Hospice, [place] [address] [place] [address] Transportation: taxi voucher -Ride confirmed entrance #2 [...] none Patient is insured through: Primary Insurance: [employer] [place] Pay[place] [employer] / Plan[place] / Product Type: *No Product type* / Secondary Insurance: N/A Prescription Coverage: Yes This plan was formulated with input from patient, (please identify family/friend involved if applicable) and team. All are in agreement with plan. Nani Mendoza MSN-Ed, RN ACM Cardiac Research Nurse and Neuro/Neurocrit/ENT Layaway Clerk. * Care Management - Dixie Patterson - 07/09/2023 1:38 PM EDT Transportation for discharge was scheduled and confirmed through [employer]. [employer] will have a pick up driver here at entrance #2 @4pm to [...] Visceral Aorta 80 16 Celiac Artery, Proximal Traverse-Biphasic 119 26 Celiac Artery, Mid Traverse-Biphasic 115 21 Celiac Artery, Distal No Vis Sup Mes Artery Proximal Biphasic 427 91 Sup Mes Artery Middle Traverse-Biphasic 100 17 Sup Mes Artery Distal Traverse-Biphasic 64 15 Hepatic Artery No Vis Splenic [...] sign off at this time, please page [phone] with any questions or concerns. Discussed with [...] Visceral Aorta 80 16 Celiac Artery, Proximal Traverse-Biphasic 119 26 Celiac Artery, Mid Traverse-Biphasic 115 21 Celiac Artery, Distal No Vis Sup Mes Artery Proximal Biphasic 427 91 Sup Mes Artery Middle Traverse-Biphasic 100 17 Sup Mes Artery Distal Traverse-Biphasic 64 15 Hepatic Artery No Vis Splenic [...] duplex Discussed with Dr. Kamara. Please page [phone] with any questions or concerns. 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 At [place], patient should be strict NPO. The plan as outlined above was discussed with Dr. Villa. Recommendations were discussed with primary team. Sis Keenan M.D. Fellow in Gastroenterology and Hepatology Pager #[phone] 07/06/2023 Associated attestation - Lashonda Villa MD [...] Lashonda Villa MD Gastroenterology and hepatology Pager: [phone] * Plan of Care - Olive Hernandez [...] Visceral Aorta 80 16 Celiac Artery, Proximal Traverse-Biphasic 119 26 Celiac Artery, Mid Traverse-Biphasic 115 21 Celiac Artery, Distal No Vis Sup Mes Artery Proximal Biphasic 427 91 Sup Mes Artery Middle Traverse-Biphasic 100 17 Sup Mes Artery Distal Traverse-Biphasic 64 15 Hepatic Artery No Vis Splenic [...] duplex Discussed with Dr. Kamara. Please page [phone] with any questions or concerns. Gauri Vega [...] Visceral Aorta 80 16 Celiac Artery, Proximal Traverse-Biphasic 119 26 Celiac Artery, Mid Traverse-Biphasic 115 21 Celiac Artery, Distal No Vis Sup Mes Artery Proximal Biphasic 427 91 Sup Mes Artery Middle Traverse-Biphasic 100 17 Sup Mes Artery Distal Traverse-Biphasic 64 15 Hepatic Artery No Vis Splenic [...] ASA) Discussed with Dr. Kamara. Please page [phone] with any questions or concerns. Gauri Vega [...] Visceral Aorta 80 16 Celiac Artery, Proximal Traverse-Biphasic 119 26 Celiac Artery, Mid Traverse-Biphasic 115 21 Celiac Artery, Distal No Vis Sup Mes Artery Proximal Biphasic 427 91 Sup Mes Artery Middle Traverse-Biphasic 100 17 Sup Mes Artery Distal Traverse-Biphasic 64 15 Hepatic Artery No Vis Splenic [...] 07/02/[address] Kamara. Please page [phone] with any questions or concerns. Gauri Vega [...] immediately following eating - Creatinine 1.21 from . Physical Exam: Vital Signs: Temp: [36.3 ??C [...] Visceral Aorta 80 16 Celiac Artery, Proximal Traverse-Biphasic 119 26 Celiac Artery, Mid Traverse-Biphasic 115 21 Celiac Artery, Distal No Vis Sup Mes Artery Proximal Biphasic 427 91 Sup Mes Artery Middle Traverse-Biphasic 100 17 Sup Mes Artery Distal Traverse-Biphasic 64 15 Hepatic Artery No Vis Splenic [...] tonight Discussed with Dr. Kamara. Please page [phone] with any questions or concerns. Gauri Vega [...] Visceral Aorta 80 16 Celiac Artery, Proximal Traverse-Biphasic 119 26 Celiac Artery, Mid Traverse-Biphasic 115 21 Celiac Artery, Distal No Vis Sup Mes Artery Proximal Biphasic 427 91 Sup Mes Artery Middle Traverse-Biphasic 100 17 Sup Mes Artery Distal Traverse-Biphasic 64 15 Hepatic Artery No Vis Splenic [...] Visceral Aorta 80 16 Celiac Artery, Proximal Traverse-Biphasic 119 26 Celiac Artery, Mid Traverse-Biphasic 115 21 Celiac Artery, Distal No Vis Sup Mes Artery Proximal Biphasic 427 91 Sup Mes Artery Middle Traverse-Biphasic 100 17 Sup Mes Artery Distal Traverse-Biphasic 64 15 Hepatic Artery No Vis Splenic [...] Dominguez PA - 06/28/2023 8:52 AM EDT [facility] Department of Cardiology Consult Progress Note Reason [...] consultation required. SUHA LangstonC Cardiovascular Medicine Pager [phone] 06/28/2023 Associated attestation - Klarissa Henderson - [...] chest pain (documented problem) at shift start, completed bedside review. Ordered EKG, completed. Problem: [...] Tellez MD - 06/24/2023 2:14 PM EDT [facility] Department of Cardiology Consult Progress Note Reason [...] if further consultation required. Alejandro Tellez MD Linotype Mechanic [id number] Associated attestation - Willy Gómez MD [...] Inpatient Consultation History of Present Illness: Loida Jude is a 53 y.o. 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 fluticasone propionate (FLONASE) 50 mcg/actuation Barney, Suspension 1 spray by Each Nare route [...] 3 wbc, hgb, hct plt Recent Labs 06/22/234 06/21/235 06/20/23 0332 WBC 7.5 9.3 10.1* HGB 12.8 14.9 14.2 HCT 39.1 44.2 41.5 PLATELET 225 279 253 Last 3 Lytes Recent Labs 06/22/234 06/21/23 0558 06/21/235 06/20/23 0332 NA 138 [...] other (see comments) (Has CPAP provided through [employer]) DME Needed at Discharge: No Patient is insured through: Primary Insurance: [employer] [place] [employer] [place] / [place] / [...] Anticipated Date of Discharge: 06/23/2023 [place] auto service dispatcher Pgr: [phone] * Plan of Care - [...] RN Outcome: Ongoing (Interventions Implemented as Appropriate) 06/19/20236 by Aaron Caban RN Outcome: Ongoing (Interventions [...] other (see comments) (Has CPAP provided through [facility]) DME Needed at Discharge: No Patient is insured through: Primary Insurance: [employer] [place] [employer] [place] / [place] / Product Type: *No Product type* / Secondary Insurance: N/A Plan for discharge is: Home w/o Services Outpatient Agency/Support Group Needs: None Agency Referrals: Not Applicable at this time. Transportation: taxi voucher Barriers to discharge: Discharge planning Plan going forward: Pt to md home with family without services once medically ready. Care Management will continue to follow and assist with discharge planning and coordination of careas indicated. Anticipated Date of Discharge: 06/19/2023 BEA Killian, RN Inpatient [facility]- Cardiology Office of Care Management Pager #: [phone] * Plan of Care - Olive Hernandez [...] COVID test: Lab Results Component Value Date [id number] Not Detected 06/13/2021 Past medical History: Past [...] In the past 12 months has the [employer] gas, oil, or water [employer] threatened to shut off services in your [...] other (see comments) (Has CPAP provided through [facility]) [address] [facility] [facility] [address] Social & Family Supports: All names listed [...] Specific Information: Has a CPAP provided by [facility]/Prescription Coverage: Primary Insurance: [place] Payor: [employer] [place] / Plan[place] [employer] [place] / Product Type: *No Product type* / Secondary Insurance: N/A ; Prescription Coverage: Yes Preferred Pharmacy: [facility] [address] [address] [place], [place] - [address] [place] [id number] [place] Status: Patient is a : No Primary Care Provider confirmed: JOCY Franco [phone] Patient/Caregiver Goals of Treatment: To figure out what is wrong Potential Needs for Transition of Care: other (see comments) ([facility]) Agency Referrals: Not Applicable Transportation: no concerns Transportation Anticipated: agency ( can not drive , mother does not drive , Son does not have a car) Concerns to be Addressed: discharge planning Assessment: Patient is admitted to [facility] service for Chest pain Plan: May [...] planning. Office of Care Management Float / access spec auto service dispatcher [email or web address] Pager #[phone] * Consult Note - Jackie Batres MD - 06/15/2023 11:04 AM EDT [facility] Department of Cardiology Initial Consult Note Patient: [...] her case. She has not had recent residential monitoring for arrhythmia, though unlikely, is possible [...] 3:00 PM EDT Office [place] [address] [place] [address] Scheduled Orders Name Type Priority Associated Diagnoses [...] Routine 07/07/2023 2:25 PM EDT Colonoscopy, Biopsy ([id number]) 07/07/2023 2:10 PM EDT post prandial pain Upper Gi Endoscopy, Biopsy ([id number]) 07/07/2023 2:10 PM EDT post prandial pain [...] EDT) Glucose 111 65 - 199 mg/dL [facility] [...] In Lab Terrence Keating MD CHEMISTRY ORDERABLES [facility] [place] [address] * Differential, Automated (07/09/2023 3:03 AM EDT) Neutrophil % 51.4 % [facility] Neutrophil Absolute 3.43 1.70 - 6.10 x10(3)/[facility] LABORAT[facility] Lymph % 31.4 % [facility] Lymphocytes Abs 2.1 0.9 - 3.2 x10(3)/[facility] LABOR[facility]ORY Monocyte % 10.1 % [facility] Monocyte Abs 0.7 0.3 - 0.9 x10(3)/[facility]ORATORY Eos % 6.0 % [facility] Eosinophils Abs 0.4 0.0 - 0.4 x10(3)/[facility] LABORATORY Basophil % 0.8 % [facility] Baso Absolute 0.0 0.0 - 0.1 x10(3)/[facility] LABOR[facility]ORY Immature Gran % 0.30 % [facility] Comment: Immature granulocytes(IG's)percentage and absolute count will include metamyelocytes, myelocytes, and promyelocytes. Blood smears from CBCs yielding IG's will be scanned manually for concordance. If this scan disagrees with the automated IG or if promyelocytes are noted, a manual differential will be performed. Immature Gran Absolute 0.02 0.00 - 0.04 x10(3)/[facility] LABORATORY Blood 07/09/2023 3:03 AM EDT 07/09/2023 3:14 AM EDT Narrative Resulting Agency Comment Spec In Lab Terrence Keating MD HEMATOLOGY ORDERABLE S [facility] [place] [address] * (ABNORMAL) Hemogram (07/09/2023 3:03 AM EDT) White Blood Cell 6.7 4.0 - 9.5 x10(3)/mc L [facility] Red Blood Cell 3.87(L) 4.00 - 5.21 x10(6)/mc L [facility] Hemoglobin 12.4 11.7 - 15.5 g/dL [facility] Hematocrit 36.8 35.7 - 45.8 % [facility] Mean Cell Volume 95.1(H) 82.6 - 94.4 fL [facility] Mean Cell Hemoglobin 32.0 27.1 - 32.0 pg [facility] Mean Cell Hemoglobin Concentration 33.7 31.7 - 35.0 g/dL [facility] Platelet 209 145 - 357 x10(3)/mc L [facility] RDW Standard Deviation 47.9(H) 37.0 - 46.0 [facility] LABORATORY RDW coefficient of variation 13.7 11.5 - 14.1 % [facility] Mean Platelet Volume 10.5 7.6 - 12.9 [facility] LABORATORY NRBC% auto 0.0 % [facility] NRBC Absolute 0.000 0.000 - 0.000 x10(3)/mc L [facility] Blood 07/09/2023 3:03 AM EDT 07/09/2023 3:14 AM EDT Narrative Resulting Agency Comment Spec In Lab Terrence Keating MD HEMATOLOGY ORDERABLE S [facility] [place] [address] * Heparin (unfractionated) Level (07/09/2023 3:03 AM EDT) UF Heparin 0.52 IU/mL [facility] Comment: Heparin (anti-Xa) [...] Lab Ailyn Irvin MD HEMATOLOGY ORDERABLE S [facility] [place] [address] * (ABNORMAL) Basic Metabolic Panel (non-fasting) (07/09/2023 3:03 AM EDT) Glucose 100 65 - 199 mg/dL [facility] Comment:Diabetes: >=200 mg/d L plus symptoms Blood Urea Nitrogen 12 8 - 18 mg/dL [facility] Creatinine 1.24(H) 0.70 - 1.20 mg/dL [facility] Sodium 138 135 - 145 mmol/L [facility] Potassium 4.2 3.5 - 5.0 mmol/L [facility] Comment: Please note: ??Patients with WBC >100,000 may have falsely elevated Potassium levels. ??For accurate Potassium quantification in these patients send serum separator tube (gold top) for subsequent determinations. ??Contact the Clinical Chemistry Laboratory if there are any questions. Chloride 104 98 - 107 mmol/L [facility] Carbon Dioxide 22 22 - 31 mmol/L [facility] Anion Gap 12 5 - 15 mmol/L [facility] Calcium 9.3 8.5 - 10.5 mg/dL [facility] Est Glomerular Filtration Rate 52(L) >=60 mL/min/1. 73 m?? [facility] [...] CHEMISTRY ORDERABL ES Performing Organization Address City/[facility]/ZIP Co de Phone Number [facility] [place] [address] * Phosphorus (07/09/2023 3:03 AM EDT) Phosphorus 4.5 2.5 - 4.5 mg/dL [facility] Blood 07/09/2023 3:03 AM EDT 07/09/2023 3:14 AM EDT Narrative Resulting Agency Comment Spec In Lab Eufemia Copeland MD CHEMISTRY ORDERABL ES Performing Organization Address City/[facility]/ZIP Co de Phone Number [facility] [place] [address] * Magnesium (07/09/2023 3:03 AM EDT) Magnesium 0.91 0.69 - 1.07 mmol/L [facility] Blood 07/09/2023 3:03 AM EDT 07/09/2023 3:14 AM EDT Narrative Resulting Agency Comment Spec In Lab Eufemia Copeland MD CHEMISTRY ORDERABL ES Performing Organization Address [facility] Co de Phone Number [facility] [place] [address] * Heparin (unfractionated) Level (07/08/2023 12:02 PM EDT) Pathologist [facility] UF Heparin 0.45 IU/mL [facility] Comment: Heparin (anti-Xa) [...] HEMATOLOGY ORDERABLE S Performing Organization Address [facility]/ZIP Co de Phone Number [facility] [place] [address] * EKG 12 Lead (07/08/2023 9:58 AM EDT) Pathologist [facility] Ventricular rate 66 BPM MUSE SYSTEM Atrial Rate 66 BPM MUSE SYSTEM P-R Interval 178 ms MUSE SYSTEM QRS Duration 92 ms MUSE SYSTEM Q-T Interval 486 ms MUSE SYSTEM QTC Calculated (Bezet) 509 ms MUSE SYSTEM Calculated P Thornton 29 degrees MUSE SYSTEM Calculated R Thornton 33 degrees MUSE SYSTEM Calculated T Thornton 29 degrees MUSE SYSTEM INTERPRETATION Normal sinus rhythm Nonspecific ST and T wave abnormality Prolonged QT Abnormal ECG When compared with ECG of 04-JUL-2023 11:41, Criteria for Septal infarct are no longer Present I personally reviewed the tracing and edited the fellows interpretation Confirmed by fellow MD Keyshawn, aKtalina ([id number]) on 07/08/2023 3:18:07 PM Confirmed by MD Beatriz, Klarissa ([id number]) on 07/09/2023 6:15:21 AM MUSE SYSTEM 07/08/2023 9:58 AM EDT 07/09/2023 6:15 AM EDT Lisa Beck MD ECG ORDERABLES [facility] * Differential, Automated (07/08/2023 5:52 AM EDT) Neutrophil % 60.6 % [facility] Neutrophil Absolute 4.42 1.70 - 6.10 x10(3)/[facility] LABORAT[facility] Lymph % 24.8 % [facility] Lymphocytes Abs 1.8 0.9 - 3.2 x10(3)/[facility]OR[facility] Monocyte % 9.2 % [facility] Monocyte Abs 0.7 0.3 - 0.9 x10(3)/[facility]OR[facility] Eos % 4.5 % [facility] Eosinophils Abs 0.3 0.0 - 0.4 x10(3)/[facility]OR[facility] Basophil % 0.5 % [facility] Baso Absolute 0.0 0.0 - 0.1 x10(3)/[facility]OR[facility] Immature Gran % 0.40 % [facility] Comment: Immature granulocytes(IG's)percentage and absolute count will include metamyelocytes, myelocytes, and promyelocytes. Blood smears from CBCs yielding IG's will be scanned manually for concordance. If this scan disagrees with the automated IG or if promyelocytes are noted, a manual differential will be performed. Immature Gran Absolute 0.03 0.00 - 0.04 x10(3)/mcL [facility] Blood 07/08/2023 5:52 AM EDT 07/08/2023 5:58 AM EDT Narrative Resulting Agency Comment Spec In Lab Terrence Keating MD HEMATOLOGY ORDERABLE S [facility] [place] [address] * (ABNORMAL) Hemogram (07/08/2023 5:52 AM EDT) White Blood Cell 7.3 4.0 - 9.5 x10(3)/mc L [facility] Red Blood Cell 3.94(L) 4.00 - 5.21 x10(6)/mc L [facility] Hemoglobin 12.3 11.7 - 15.5 g/dL [facility] Hematocrit 36.3 35.7 - 45.8 % [facility] Mean Cell Volume 92.1 82.6 - 94.4 fL [facility] Mean Cell Hemoglobin 31.2 27.1 - 32.0 pg [facility] Mean Cell Hemoglobin Concentration 33.9 31.7 - 35.0 g/dL [facility] Platelet 207 145 - 357 x10(3)/mc L [facility] RDW Standard Deviation 44.6 37.0 - 46.0 [facility] LABORATORY RDW coefficient of variation 13.3 11.5 - 14.1 % [facility] Mean Platelet Volume 10.5 7.6 - 12.9 fL [facility] NRBC% auto 0.0 % [facility] NRBC Absolute 0.000 0.000 - 0.000 x10(3)/mc L [facility] Blood 07/08/2023 5:52 AM EDT 07/08/2023 5:58 AM EDT Narrative Resulting Agency Comment Spec In Lab Terrence Keating MD HEMATOLOGY ORDERABLE S Performing Organization Address [facility]/ZIP Co de Phone Number [facility] [place] [address] * Heparin (unfractionated) Level (07/08/2023 5:52 AM EDT) [facility] UF Heparin 0.37 IU/mL [facility] Comment: Heparin (anti-Xa) [...] HEMATOLOGY ORDERABLE S Performing Organization Address [facility]/ZIP Co de Phone Number [facility] [place] [address] * (ABNORMAL) Basic Metabolic Panel (non-fasting) (07/08/2023 5:52 AM EDT) [facility] Glucose 102 65 - 199 mg/dL [facility] Comment:Diabetes: >=200 mg/d L plus symptoms Blood Urea Nitrogen 14 8 - 18 mg/dL [facility] Creatinine 1.30(H) 0.70 - 1.20 mg/dL [facility] Sodium 139 135 - 145 mmol/L [facility] Potassium 3.2(L) 3.5 - 5.0 mmol/L [facility] Comment: Please note: ??Patients with WBC >100,000 may have falsely elevated Potassium levels. ??For accurate Potassium quantification in these patients send serum separator tube (gold top) for subsequent determinations. ??Contact the Clinical Chemistry Laboratory if there are any questions. Chloride 101 98 - 107 mmol/L [facility] Carbon Dioxide 25 22 - 31 mmol/L [facility] Anion Gap 13 5 - 15 mmol/L [facility] Calcium 9.3 8.5 - 10.5 mg/dL [facility] Est Glomerular Filtration Rate 49(L) >=60 mL/min/1. 73 m?? [facility] [...] MD CHEMISTRY ORDERABL ES Performing Organization Address [facility]/ZIP Co de Phone Number [facility] [place] [address] * Phosphorus (07/08/2023 5:52 AM EDT) Phosphorus 4.3 2.5 - 4.5 mg/dL [facility] Blood 07/08/2023 5:52 AM EDT 07/08/2023 5:58 AM EDT Narrative Resulting Agency Comment Spec In Lab Eufemia Copeland MD CHEMISTRY ORDERABL ES Performing Organization Address City/[facility]/ZIP Co de Phone Number [facility] [place] [address] * Magnesium (07/08/2023 5:52 AM EDT) Magnesium 0.89 0.69 - 1.07 mmol/L [facility] Blood 07/08/2023 5:52 AM EDT 07/08/2023 5:58 AM EDT Narrative Resulting Agency Comment Spec In Lab Eufemia Copeland MD CHEMISTRY ORDERABL ES Performing Organization Address [facility]/ZIP Co de Phone Number [facility] [place] [address] * Heparin (unfractionated) Level (07/08/2023 12:00 AM EDT) UF Heparin 0.22 IU/mL [facility] Comment: Heparin (anti-Xa) [...] HEMATOLOGY ORDERABLE S Performing Organization Address City/[facility]/ZIP Co de Phone Number [facility] [place] [address] * Specimen to Pathology (07/07/2023 2:55 PM EDT) AP Specimen 07/07/2023 2:55 PM EDT 07/07/2023 2:55 PM EDT Narrative [facility] - 07/07/2023 2:55 PM EDT Specimen requisition ordered. ??Separate Pathology report to follow Terrence Keating MD PATHOLOGY/CYTOLOGY O RUMA Performing Organization Address [facility] [place] [place] [address] * Specimen to Pathology (07/07/2023 2:38 PM EDT) AP Specimen 07/07/2023 2:38 PM EDT 07/07/2023 2:38 PM EDT Narrative [facility] - 07/07/2023 2:38 PM EDT Specimen requisition ordered. ??Separate Pathology report to follow Terrence Keating MD PATHOLOGY/CYTOLOGY O RUMA Performing Organization Address [facility] [place] [place] [address] * Specimen to Pathology (07/07/2023 2:38 PM EDT) AP Specimen 07/07/2023 2:38 PM EDT 07/07/2023 2:38 PM EDT Narrative [facility] - 07/07/2023 2:38 PM EDT Specimen requisition ordered. ??Separate Pathology report to follow Terrence Keating MD PATHOLOGY/CYTOLOGY O RUMA Performing Organization Address [facility] [place] [place] [address] * Surgical Pathology Report (07/07/2023 2:25 PM EDT) Final Diagnosis [id number] ? Location: [facility]; [facility]; A The signing pathologist [...] Sapna Verified: ??07/19/2023 13:25 ??Pathologist Performed at: ??-[facility] Dept. of Pathology, [place] [address] Cotton Opener: Vangie Lu MD, FCAP, ??CLIA Certificate: [id number] SPECIMEN(S) SUBMITTED A - duodenal biopsies rule [...] labeled C1-C2. ??sdy 07/19/2023 1:25 PM EDT [facility] GI Biopsy 07/07/2023 2:25 PM EDT 07/07/2023 2:25 PM EDT GI Biopsy 07/07/2023 2:25 PM EDT 07/07/2023 2:25 PM EDT GI Biopsy 07/07/2023 2:25 PM EDT 07/07/2023 2:25 PM EDT Lashonda Villa MD PATHOLOGY/CYTOLOGY O RUMA [facility] [place] [address] * COLONOSCOPY (07/07/2023 1:39 PM EDT) COLONOSCOPY [facility] Procedure Date: 07/07/2023 1:39 PM ? Patient Name: Loida Roque ? N: [id number] ? Date of : 1970 ? Age: 53 ? Order #: [id number] ? Instrument Name: EC-760P- [id number] ? Procedure: ? Colonoscopy Indications: ? Abdominal pain, Diarrhea Providers: ? Lashonda Villa MD, [place] ? Systrom, Bouchra Mejia MD: ? Medicines: [...] ? was evaluated using the BBPS ? (Durant Bowel Preparation Scale) ? with scores of: [...] Procedure Code(s): ? --- Professional --- ? 85717, Colonoscopy, flexible; with ? biopsy, single or multiple CPT copyright 2021 [employer]. All rights reserved. The codes documented in this report are preliminary and upon car installations supervisor review may be revised to meet current [...] GENERAL SURGICAL ORD ERABLES Performing Organization Address [facility] Co de Phone Number [employer] * Shiga Toxin Detection (07/07/2023 12:10 PM EDT) Shiga Toxin Assay EIA Negative for Shiga Toxin 1 EIA Negative for Shiga Toxin 2 [facility] Stool 07/07/2023 12:1 0 PM EDT 07/07/2023 12:53 PM EDT Narrative Resulting Agency Comment Spec In Lab Ailyn Irvin MD MICROBIOLOGY - GENER AL ORDERABLES Performing Organization Address [facility] Co de Phone Number [facility] [place] [address] * Campylobacter Antigen (07/07/2023 12:10 PM EDT) Campylobacter Ag Immunoassay Negative for Campylobacter Antigen [facility] Stool 07/07/2023 12:1 0 PM EDT 07/07/2023 12:53 PM EDT Narrative Resulting Agency Comment Spec In Lab Ailyn Irvin MD MICROBIOLOGY - GENER AL ORDERABLES Performing Organization Address [facility]/ZIP Co de Phone Number [facility] [place] [address] * Stool culture (07/07/2023 12:10 PM EDT) Stool Culture No enteric pathogens isolated [facility] Stool 07/07/2023 12:1 0 PM EDT 07/07/2023 12:53 PM EDT Narrative Resulting Agency Comment Spec In Lab Ailyn Irvin MD MICROBIOLOGY - GENER AL ORDERABLES Performing Organization Address City/[facility] Co de Phone Number [facility] [place] [address] * (ABNORMAL) Differential, Automated (07/07/2023 3:51 AM EDT) Neutrophil % 58.9 % [facility] Neutrophil Absolute 4.67 1.70 - 6.10 x10(3)/mc L [facility] Lymph % 24.8 % [facility] Lymphocytes Abs 2.0 0.9 - 3.2 x10(3)/mc L [facility] Monocyte % 9.4 % [facility] Monocyte Abs 0.7 0.3 - 0.9 x10(3)/mc L [facility] Eos % 6.1 % [facility] Eosinophils Abs 0.5(H) 0.0 - 0.4 x10(3)/mc L [facility] Basophil % 0.5 % [facility] Baso Absolute 0.0 0.0 - 0.1 x10(3)/mc L [facility] Immature Gran % 0.30 % [facility] Comment: Immature granulocytes(IG's)percentage and absolute count will include metamyelocytes, myelocytes, and promyelocytes. Blood smears from CBCs yielding IG's will be scanned manually for concordance. If this scan disagrees with the automated IG or if promyelocytes are noted, a manual differential will be performed. Immature Gran Absolute 0.02 0.00 - 0.04 x10(3)/mc L [facility] Blood 07/07/2023 3:51 AM EDT 07/07/2023 4:08 AM EDT Narrative Resulting Agency Comment Spec In Lab Terrence Keating MD HEMATOLOGY ORDERABLE S [facility] [place] [address] * Hemogram (07/07/2023 3:51 AM EDT) White Blood Cell 7.9 4.0 - 9.5 x10(3)/[facility] Red Blood Cell 4.42 4.00 - 5.21 x10(6)/[facility] Hemoglobin 13.8 11.7 - 15.5 g/dL [facility] Hematocrit 41.0 35.7 - 45.8 % [facility] Mean Cell Volume 92.8 82.6 - 94.4 fL [facility] Mean Cell Hemoglobin 31.2 27.1 - 32.0 pg [facility] Mean Cell Hemoglobin Concentration 33.7 31.7 - 35.0 g/dL [facility] Platelet 255 145 - 357 x10(3)/[facility] RDW Standard Deviation 44.8 37.0 - 46.0 fL [facility] RDW coefficient of variation 13.2 11.5 - 14.1 % [facility] Mean Platelet Volume 10.6 7.6 - 12.9 fL [facility] NRBC% auto 0.0 % [facility] NRBC Absolute 0.000 0.000 - 0.000 x10(3)/mcL [facility] Blood 07/07/2023 3:51 AM EDT 07/07/2023 4:08 AM EDT Narrative Resulting Agency Comment Spec In Lab Terrence Keating MD HEMATOLOGY ORDERABLE S Performing Organization Address [facility]/ZIP Co de Phone Number [facility] [place] [address] * Heparin (unfractionated) Level (07/07/2023 3:51 AM EDT) UF Heparin 0.33 IU/mL [facility] Comment: Heparin [...] HEMATOLOGY ORDERABLE S Performing Organization Address [facility]/ZIP Co de Phone Number [facility] [place] [address] * (ABNORMAL) Basic Metabolic Panel (non-fasting) (07/07/2023 3:51 AM EDT) Glucose 101 65 - 199 mg/dL [facility] Comment:Diabetes: >=200 mg/d L plus symptoms Blood Urea Nitrogen 18 8 - 18 mg/dL [facility] Creatinine 1.30(H) 0.70 - 1.20 mg/dL [facility] Sodium 135 135 - 145 mmol/L [facility] Potassium 3.5 3.5 - 5.0 mmol/L [facility] Comment: Please note: ??Patients with WBC >100,000 may have falsely elevated Potassium levels. ??For accurate Potassium quantification in these patients send serum separator tube (gold top) for subsequent determinations. ??Contact the Clinical Chemistry Laboratory if there are any questions. Chloride 96(L) 98 - 107 mmol/L [facility] Carbon Dioxide 23 22 - 31 mmol/L [facility] Anion Gap 16(H) 5 - 15 mmol/L [facility] Calcium 9.4 8.5 - 10.5 mg/dL [facility] Est Glomerular Filtration Rate 49(L) >=60 mL/min/1. 73 m?? [facility] [...] Lab Eufemia Copeland MD CHEMISTRY ORDERABL ES [facility] [place] [address] * Phosphorus (07/07/2023 3:51 AM EDT) Phosphorus 4.0 2.5 - 4.5 mg/dL [facility] Blood 07/07/2023 3:51 AM EDT 07/07/2023 4:08 AM EDT Narrative Resulting Agency Comment Spec In Lab Eufemia Copeland MD CHEMISTRY ORDERABL ES Performing Organization Address [facility]/ZIP Co de Phone Number [facility] [place] [address] * Magnesium (07/07/2023 3:51 AM EDT) Magnesium 0.87 0.69 - 1.07 mmol/L [facility] Blood 07/07/2023 3:51 AM EDT 07/07/2023 4:08 AM EDT Narrative Resulting Agency Comment Spec In Lab Eufemia Copeland MD CHEMISTRY ORDERABL ES Performing Organization Address [facility] Co de Phone Number [facility] [place] [address] * Hepatic Function Panel (07/07/2023 3:51 AM EDT) Protein, Total 7.5 6.1 - 8.0 g/dL [facility] Albumin 4.4 3.2 - 5.2 g/dL [facility] Aspartate Aminotransferase 15 0 - 30 unit/L [facility] Alanine Aminotransferase 20 0 - 30 unit/L [facility] Alkaline Phosphatase 54 35 - 105 unit/L [facility] Bilirubin, Total 0.4 0.2 - 1.3 mg/dL [facility] Bilirubin, Direct 0.1 0.0 - 0.3 mg/dL [facility] Blood 07/07/2023 3:51 AM EDT 07/07/2023 4:08 AM EDT Narrative Resulting Agency Comment Spec In Lab Ailyn Irvin MD CHEMISTRY ORDERABLES Performing Organization Address City/[facility]/ZIP Co de Phone Number [facility] [place] [address] * Giardia/Cryptosporidium Antigens ([facility]/CGP/APD/NLH) (07/07/2023 12:38 AM EDT) Giardia Antigen Negative Negative [facility] Comment:Examination for othe r intestinal parasites requires foreign travel history. Cryptosporidium Antigen Negative Negative [facility] Stool 07/07/2023 12:3 8 AM EDT 07/07/2023 7:56 AM EDT Narrative Resulting Agency Comment Spec In Lab Ailyn Irvin MD MICROBIOLOGY - GENER AL ORDERABLES Performing Organization Address [facility]/ZIP Co de Phone Number [facility] [place] [address] * Hepatic Function Panel (07/06/2023 3:41 PM EDT) Protein, Total 7.6 6.1 - 8.0 g/dL [facility] Albumin 4.3 3.2 - 5.2 g/dL [facility] Aspartate Aminotransferase 20 0 - 30 unit/L [facility] Alanine Aminotransferase 22 0 - 30 unit/L [facility] Alkaline Phosphatase 58 35 - 105 unit/L [facility] Bilirubin, Total 0.4 0.2 - 1.3 mg/dL [facility] Bilirubin, Direct 0.1 0.0 - 0.3 mg/dL [facility] Blood 07/06/2023 3:41 PM EDT 07/06/2023 4:00 PM EDT Narrative Resulting Agency Comment Spec In Lab Terrence Keating MD CHEMISTRY ORDERABLES Performing Organization Address [facility]/ZIP Co de Phone Number [facility] [place] [address] * Hepatic Function Panel (07/06/2023 3:54 AM EDT) Protein, Total 7.6 6.1 - 8.0 g/dL [facility] Albumin 4.3 3.2 - 5.2 g/dL [facility] Aspartate Aminotransferase Not Perf 0 - 30 [facility] Comment: Unable to quantitate due to sample hemolysis. ??Sample redraw suggested. Called by: abimbola, Read back by: Ana Paula Borja, Date/Time:07/06/23 14:08. Alanine Aminotransferase 25 0 - 30 unit/L [facility] Alkaline Phosphatase 58 35 - 105 unit/L [facility] Bilirubin, Total 0.4 0.2 - 1.3 mg/dL [facility] Bilirubin, Direct Not Perf 0.0 - 0.[address] [facility] Blood Venous Draw / Unknown 07/06/2023 3:54 AM EDT 07/06/2023 4:18 AM EDT Narrative Resulting Agency Comment Spec In Lab Terrence Keating MD CHEMISTRY ORDERABLES Performing Organization Address City/State/[facility] Co de Phone Number [facility] [place] [address] * (ABNORMAL) Differential, Automated (07/06/2023 3:54 AM EDT) Neutrophil % 56.6 % [facility] Neutrophil Absolute 4.34 1.70 - 6.10 x10(3)/mc L [facility] Lymph % 26.1 % [facility] Lymphocytes Abs 2.0 0.9 - 3.2 x10(3)/mc L [facility] Monocyte % 9.6 % [facility] Monocyte Abs 0.7 0.3 - 0.9 x10(3)/mc L [facility] Eos % 6.6 % [facility] Eosinophils Abs 0.5(H) 0.0 - 0.4 x10(3)/mc L [facility] Basophil % 0.7 % [facility] Baso Absolute 0.0 0.0 - 0.1 x10(3)/mc L [facility] Absolute 0.03 0.00 - 0.04 x10(3)/mc L [facility] Blood 07/06/2023 3:54 AM EDT 07/06/2023 4:12 AM EDT Narrative Resulting Agency Comment Spec In Lab Terrence Keating MD HEMATOLOGY ORDERABLE S [facility] [place] [address] * (ABNORMAL) Hemogram (07/06/2023 3:54 AM EDT) White Blood Cell 7.7 4.0 - 9.5 x10(3)/ L [facility] Red Blood Cell 4.62 4.00 - 5.21 x10(6)/ L [facility] Hemoglobin 14.7 11.7 - 15.5 g/dL [facility] Hematocrit 43.8 35.7 - 45.8 % [facility] Mean Cell Volume 94.8(H) 82.6 - 94.4 fL [facility] Mean Cell Hemoglobin 31.8 27.1 - 32.0 pg [facility] Mean Cell Hemoglobin Concentration 33.6 31.7 - 35.0 g/dL [facility] Platelet 243 145 - 357 x10(3)/ L [facility] RDW Standard Deviation 47.2(H) 37.0 - 46.0 fL [facility] RDW coefficient of variation 13.5 11.5 - 14.1 % [facility] Mean Platelet Volume 10.4 7.6 - 12.9 fL [facility] NRBC% auto 0.0 % [facility] NRBC Absolute 0.000 0.000 - 0.000 x10(3)/mc L [facility] Blood 07/06/2023 3:54 AM EDT 07/06/2023 4:12 AM EDT Narrative Resulting Agency Comment Spec In Lab Terrence Keaitng MD HEMATOLOGY ORDERABLE S [facility] [place] [address] * (ABNORMAL) Basic Metabolic Panel (non-fasting) (07/06/2023 3:54 AM EDT) Glucose 107 65 - 199 mg/dL [facility] Comment:Diabetes: >=200 mg/d L plus symptoms Blood Urea Nitrogen 16 8 - 18 mg/dL [facility] Creatinine 1.25(H) 0.70 - 1.20 mg/dL [facility] Sodium 135 135 - 145 mmol/L [facility] Potassium 3.9 3.5 - 5.0 mmol/L [facility] Comment: Please note: ??Patients with WBC >100,000 may have falsely elevated Potassium levels. ??For accurate Potassium quantification in these patients send serum separator tube (gold top) for subsequent determinations. ??Contact the Clinical Chemistry Laboratory if there are any questions. Chloride 98 98 - 107 mmol/L [facility] Carbon Dioxide 23 22 - 31 mmol/L [facility] Anion Gap 14 5 - 15 mmol/L [facility] Calcium 10.0 8.5 - 10.5 mg/dL [facility] Est Glomerular Filtration Rate 51(L) >=60 mL/min/1. 73 m?? [facility] [...] MD CHEMISTRY ORDERABL ES Performing Organization Address [facility] Co de Phone Number [facility] [place] [address] * Phosphorus (07/06/2023 3:54 AM EDT) Phosphorus 4.5 2.5 - 4.5 mg/dL [facility] Blood 07/06/2023 3:54 AM EDT 07/06/2023 4:18 AM EDT Narrative Resulting Agency Comment Spec In Lab Eufemia Copeland MD CHEMISTRY ORDERABL ES Performing Organization Address [facility] Co de Phone Number [facility] [place] [address] * Magnesium (07/06/2023 3:54 AM EDT) Magnesium 0.97 0.69 - 1.07 mmol/L [facility] Blood 07/06/2023 3:54 AM EDT 07/06/2023 4:18 AM EDT Narrative Resulting Agency Comment Spec In Lab Eufemia Copeland MD CHEMISTRY ORDERABL ES Performing Organization Address [facility] Co de Phone Number [facility] [place] [address] * Heparin (unfractionated) Level (07/06/2023 3:54 AM EDT) UF Heparin 0.31 IU/mL [facility] Comment: Heparin (anti-Xa) [...] HEMATOLOGY ORDERABLE S Performing Organization Address City/[facility]/ZIP Co de Phone Number [facility] [place] [address] * Amylase (07/05/2023 5:44 PM EDT) Pathologist [facility] Amylase 35 28 - 100 unit/L [facility] Blood 07/05/2023 5:44 PM EDT 07/05/2023 6:00 PM EDT Narrative Resulting Agency Comment Spec In Lab Terrence Keating MD CHEMISTRY ORDERABLES Performing Organization Address City/[facility]/ZIP Co de Phone Number [facility] [place] [address] * Lipase (07/05/2023 5:44 PM EDT) Pathologist [facility] Lipase 17 0 - 60 unit/L [facility] Blood 07/05/2023 5:44 PM EDT 07/05/2023 6:00 PM EDT Narrative Resulting Agency Comment Spec In Lab Terrence Keating MD CHEMISTRY ORDERABLES [facility] [place] [address] * (ABNORMAL) Basic Metabolic Panel (non-fasting) (07/05/2023 5:44 PM EDT) Glucose 130 65 - 199 mg/dL [facility] Comment:Diabetes: >=200 mg/d L plus symptoms Blood Urea Nitrogen 17 8 - 18 mg/dL [facility] Creatinine 1.30(H) 0.70 - 1.20 mg/dL [facility] Sodium 134(L) 135 - 145 mmol/L [facility] Potassium 3.7 3.5 - 5.0 mmol/L [facility] Comment: Please note: ??Patients with WBC >100,000 may have falsely elevated Potassium levels. ??For accurate Potassium quantification in these patients send serum separator tube (gold top) for subsequent determinations. ??Contact the Clinical Chemistry Laboratory if there are any questions. Chloride 98 98 - 107 mmol/L [facility] Carbon Dioxide 21(L) 22 - 31 mmol/L [facility] Anion Gap 15 5 - 15 mmol/L [facility] Calcium 9.6 8.5 - 10.5 mg/dL [facility] Est Glomerular Filtration Rate 49(L) >=60 mL/min/1. 73 m?? [facility] [...] In Lab Terrence Keating MD CHEMISTRY ORDERABLES [facility] [place] [address] * Duplex Study Visceral Arteries, Comp (07/05/2023 9:46 AM EDT) VB Text Report Department: Vascular Surgery Lab Patient: [id number] (LOIDA ROQUE) CPT: [id number] Referring Physician: TERRENCE KEATING ?? Phone: Indications: [...] ?Bi-Triphasic ?101 ?11 ?? Hepatic Artery ? Traverse-Biphasic ? 123 ?23 ?? Splenic Artery ? Traverse-Biphasic ? 122 ?24 ?? Inf Mes Artery [...] 5:05 AM EDT) Neutrophil % 63.0 % [facility] Neutrophil Absolute 5.59 1.70 - 6.10 x10(3)/[facility] Lymph % 22.4 % [facility] Lymphocytes Abs 2.0 0.9 - 3.2 x10(3)/[facility] Monocyte % 9.7 % [facility] Monocyte Abs 0.9 0.3 - 0.9 x10(3)/[facility] Eos % 4.1 % [facility] Eosinophils Abs 0.4 0.0 - 0.4 x10(3)/[facility] Basophil % 0.6 % [facility] Baso Absolute 0.0 0.0 - 0.1 x10(3)/[facility] Immature Gran % 0.20 % [facility] Comment: Immature granulocytes(IG's)percentage and absolute count will include metamyelocytes, myelocytes, and promyelocytes. Blood smears from CBCs yielding IG's will be scanned manually for concordance. If this scan disagrees with the automated IG or if promyelocytes are noted, a manual differential will be performed. Immature Gran Absolute 0.02 0.00 - 0.04 x10(3)/[facility] Blood 07/05/2023 5:05 AM EDT 07/05/2023 5:17 AM EDT Narrative Resulting Agency Comment Spec In Lab Terrence Keating MD HEMATOLOGY ORDERABLE S Performing Organization Address City/State/[facility] Co de Phone Number [facility] [place] [address] * (ABNORMAL) Hemogram (07/05/2023 5:05 AM EDT) White Blood Cell 8.9 4.0 - 9.5 x10(3)/[facility] Red Blood Cell 4.42 4.00 - 5.21 x10(6)/[facility] Hemoglobin 13.7 11.7 - 15.5 g/dL [facility] Hematocrit 41.4 35.7 - 45.8 % [facility] Mean Cell Volume 93.7 82.6 - 94.4 fL [facility] Mean Cell Hemoglobin 31.0 27.1 - 32.0 pg [facility] Mean Cell Hemoglobin Concentration 33.1 31.7 - 35.0 g/dL [facility] Platelet 245 145 - 357 x10(3)/[facility] RDW Standard Deviation 47.1(H) 37.0 - 46.0 fL [facility] RDW coefficient of variation 13.7 11.5 - 14.1 % [facility] Mean Platelet Volume 10.8 7.6 - 12.9 fL [facility] NRBC% auto 0.0 % [facility] NRBC Absolute 0.000 0.000 - 0.000 x10(3)/mc L [facility] Blood 07/05/2023 5:05 AM EDT 07/05/2023 5:17 AM EDT Narrative Resulting Agency Comment Spec In Lab Terrence Keating MD HEMATOLOGY ORDERABLE S Performing Organization Address City/[facility]/ZIP Co de Phone Number [facility] [place] [address] * Heparin (unfractionated) Level (07/05/2023 5:05 AM EDT) UF Heparin 0.35 IU/mL [facility] Comment: Heparin (anti-Xa) [...] Lab Ailyn Irvin MD HEMATOLOGY ORDERABLE S [facility] [place] [address] * (ABNORMAL) Basic Metabolic Panel (non-fasting) (07/05/2023 5:05 AM EDT) Glucose 114 65 - 199 mg/dL [facility] Comment:Diabetes: >=200 mg/d L plus symptoms Blood Urea Nitrogen 19(H) 8 - 18 mg/dL [facility] Creatinine 1.51(H) 0.70 - 1.20 mg/dL [facility] Sodium 134(L) 135 - 145 mmol/L [facility] Potassium 3.8 3.5 - 5.0 mmol/L [facility] Comment: Please note: ??Patients with WBC >100,000 may have falsely elevated Potassium levels. ??For accurate Potassium quantification in these patients send serum separator tube (gold top) for subsequent determinations. ??Contact the Clinical Chemistry Laboratory if there are any questions. Chloride 97(L) 98 - 107 mmol/L [facility] Carbon Dioxide 25 22 - 31 mmol/L [facility] Anion Gap 12 5 - 15 mmol/L [facility] Calcium 10.0 8.5 - 10.5 mg/dL [facility] Est Glomerular Filtration Rate 41(L) >=60 mL/min/1. 73 m?? [facility] [...] Lab Eufemia Copeland MD CHEMISTRY ORDERABL ES [facility] [place] [address] * (ABNORMAL) Phosphorus (07/05/2023 5:05 AM EDT) Phosphorus 5.0(H) 2.5 - 4.5 mg/dL [facility] Blood 07/05/2023 5:05 AM EDT 07/05/2023 5:17 AM EDT Narrative Resulting Agency Comment Spec In Lab Eufemia Copeland MD CHEMISTRY ORDERABL ES Performing Organization Address [facility]/ZIP Co de Phone Number [facility] [place] [address] * Magnesium (07/05/2023 5:05 AM EDT) Pathologist [facility] Magnesium 1.01 0.69 - 1.07 mmol/L [facility] Blood 07/05/2023 5:05 AM EDT 07/05/2023 5:17 AM EDT Narrative Resulting Agency Comment Spec In Lab Eufemia Copeland MD CHEMISTRY ORDERABL ES Performing Organization Address [facility]/ZIP Co de Phone Number [facility] [place] [address] * EKG 12 Lead (07/04/2023 11:41 AM EDT) Ventricular rate 76 BPM MUSE SYSTEM Atrial Rate 76 BPM MUSE SYSTEM P-R Interval 174 ms MUSE SYSTEM QRS Duration 88 ms MUSE SYSTEM Q-T Interval 450 ms MUSE SYSTEM QTC Calculated (Bezet) 506 ms MUSE SYSTEM Calculated P Thornton 36 degrees MUSE SYSTEM Calculated R Thornton 35 degrees MUSE SYSTEM Calculated T Thornton 37 degrees MUSE SYSTEM INTERPRETATION Normal sinus rhythm Possible Left atrial enlargement Septal infarct , age undetermined Prolonged QT Abnormal ECG When compared with ECG of 03-JUL-2023 21:36, ST no longer depressed in Anterior leads Nonspecific T wave abnormality now evident in Anterior leads Confirmed by MD Henderson Katharine (Sarita) on 07/05/2023 6:21:29 AM MUSE SYSTEM 07/04/2023 11:4 1 AM EDT 07/05/2023 6:21 AM EDT Lisa Beck MD ECG ORDERABLES MUSE SYSTEM * Differential, Automated (07/04/2023 3:47 AM EDT) Neutrophil % 63.5 % [facility] Neutrophil Absolute 5.19 1.70 - 6.10 x10(3)/[facility] Lymph % 24.4 % [facility] Lymphocytes Abs 2.0 0.9 - 3.2 x10(3)/[facility] Monocyte % 8.1 % [facility] Monocyte Abs 0.7 0.3 - 0.9 x10(3)/[facility] Eos % 3.4 % [facility] Eosinophils Abs 0.3 0.0 - 0.4 x10(3)/[facility] Basophil % 0.4 % [facility] Baso Absolute 0.0 0.0 - 0.1 x10(3)/[facility] Immature Gran % 0.20 % [facility] Comment: Immature granulocytes(IG's)percentage and absolute count will include metamyelocytes, myelocytes, and promyelocytes. Blood smears from CBCs yielding IG's will be scanned manually for concordance. If this scan disagrees with the automated IG or if promyelocytes are noted, a manual differential will be performed. Immature Gran Absolute 0.02 0.00 - 0.04 x10(3)/[facility] Blood 07/04/2023 3:47 AM EDT 07/04/2023 4:15 AM EDT Narrative Resulting Agency Comment Spec In Lab Terrence Keating MD HEMATOLOGY ORDERABLE S [facility] [place] [address] * (ABNORMAL) Hemogram (07/04/2023 3:47 AM EDT) White Blood Cell 8.2 4.0 - 9.5 x10(3)/mc L [facility] Red Blood Cell 4.26 4.00 - 5.21 x10(6)/mc L [facility] Hemoglobin 13.5 11.7 - 15.5 g/dL [facility] Hematocrit 40.0 35.7 - 45.8 % [facility] Mean Cell Volume 93.9 82.6 - 94.4 fL [facility] Mean Cell Hemoglobin 31.7 27.1 - 32.0 pg [facility] Mean Cell Hemoglobin Concentration 33.8 31.7 - 35.0 g/dL [facility] Platelet 219 145 - 357 x10(3)/mc L [facility] RDW Standard Deviation 47.0(H) 37.0 - 46.0 [facility] LABORATORY RDW coefficient of variation 13.7 11.5 - 14.1 % [facility] Mean Platelet Volume 11.0 7.6 - 12.9 fL [facility] NRBC% auto 0.0 % [facility] NRBC Absolute 0.000 0.000 - 0.000 x10(3)/ L [facility] Blood 07/04/2023 3:47 AM EDT 07/04/2023 4:15 AM EDT Narrative Resulting Agency Comment Spec In Lab Terrence Keating MD HEMATOLOGY ORDERABLE S [facility] [place] [address] * Heparin (unfractionated) Level (07/04/2023 3:47 AM EDT) UF Heparin 0.44 IU/mL [facility] Comment: Heparin (anti-Xa) [...] Lab Ailyn Irvin MD HEMATOLOGY ORDERABLE S [facility] [place] [address] * (ABNORMAL) Basic Metabolic Panel (non-fasting) (07/04/2023 3:47 AM EDT) Glucose 104 65 - 199 mg/dL [facility] Comment:Diabetes: >=200 mg/d L plus symptoms Blood Urea Nitrogen 16 8 - 18 mg/dL [facility] Creatinine 1.28(H) 0.70 - 1.20 mg/dL [facility] Sodium 139 135 - 145 mmol/L [facility] Potassium 3.8 3.5 - 5.0 mmol/L [facility] Comment: Please note: ??Patients with WBC >100,000 may have falsely elevated Potassium levels. ??For accurate Potassium quantification in these patients send serum separator tube (gold top) for subsequent determinations. ??Contact the Clinical Chemistry Laboratory if there are any questions. Chloride 102 98 - 107 mmol/L [facility] Carbon Dioxide 21(L) 22 - 31 mmol/L [facility] Anion Gap 16(H) 5 - 15 mmol/L [facility] Calcium 9.5 8.5 - 10.5 mg/dL [facility] Est Glomerular Filtration Rate 50(L) >=60 mL/min/1. 73 m?? [facility] [...] MD CHEMISTRY ORDERABL ES Performing Organization Address [facility] Co de Phone Number [facility] [place] [address] * (ABNORMAL) Phosphorus (07/04/2023 3:47 AM EDT) Phosphorus 4.9(H) 2.5 - 4.5 mg/dL [facility] Blood 07/04/2023 3:47 AM EDT 07/04/2023 4:15 AM EDT Narrative Resulting Agency Comment Spec In Lab Eufemia Copeland MD CHEMISTRY ORDERABL ES Performing Organization Address [facility] Co de Phone Number [facility] [place] [address] * Magnesium (07/04/2023 3:47 AM EDT) Magnesium 1.05 0.69 - 1.07 mmol/L [facility] Blood 07/04/2023 3:47 AM EDT 07/04/2023 4:15 AM EDT Narrative Resulting Agency Comment Spec In Lab Eufemia Copeland MD CHEMISTRY ORDERABL ES Performing Organization Address [facility]/ZIP Co de Phone Number [facility] [place] [address] * EKG 12 Lead (07/03/2023 9:36 PM EDT) [facility] Ventricular rate 61 BPM MUSE SYSTEM Atrial Rate 61 BPM MUSE SYSTEM P-R Interval 188 ms MUSE SYSTEM QRS Duration 88 ms MUSE SYSTEM Q-T Interval 512 ms MUSE SYSTEM QTC Calculated (Bezet) 515 ms MUSE SYSTEM Calculated P Thornton 56 degrees MUSE SYSTEM Calculated R Thornton 69 degrees MUSE SYSTEM Calculated T Thornton 29 degrees MUSE SYSTEM INTERPRETATION Normal sinus [...] Beck MD ECG ORDERABLES Performing Organization Address [facility]/ZIP Co de Phone Number MUSE SYSTEM * Magnesium (07/03/2023 6:00 PM EDT) [facility] Magnesium 0.89 0.69 - 1.07 mmol/L [facility] Blood 07/03/2023 6:00 PM EDT 07/03/2023 6:07 PM EDT Narrative Resulting Agency Comment Spec In Lab Lino Calles MD CHEMISTRY ORDERABLES Performing Organization Address [facility]/ZIP Co de Phone Number [facility] [place] [address] * (ABNORMAL) Basic Metabolic Panel (non-fasting) (07/03/2023 6:00 PM EDT) [facility] Glucose 116 65 - 199 mg/dL [facility] Comment:Diabetes: >=200 mg/d L plus symptoms Blood Urea Nitrogen 16 8 - 18 mg/dL [facility] Creatinine 1.37(H) 0.70 - 1.20 mg/dL [facility] [...] 107 mmol/L [facility] Carbon Dioxide 21(L) 22 - 31 mmol/L [facility] Anion Gap 14 5 - 15 mmol/L [facility] Calcium 9.5 8.5 - 10.5 mg/dL [facility] Est Glomerular Filtration Rate 46(L) >=60 mL/min/1. 73 m?? [facility] [...] In Lab Lino Calles MD CHEMISTRY ORDERABLES [facility] [place] [address] * XR Chest One View (07/03/2023 3:18 PM EDT) [employer] Signature WORKSTATION ID [id number] RAD Anatomical Region Laterality Modality Chest N/A Digital Radiogra phy Impressions 07/03/2023 3:27 PM EDT No pulmonary edema or pleural effusion Thank you for letting us participate in the care of this patient. ??If you are a health care provider and have any questions regarding this report, please contact the number below. ??For patients who have questions please contact the health director long term care that requested your imaging first. ? Electronically signed by: Itz Hayward MD, [facility] ??([phone]), at 07/03/2023 3:27 PM Narrative 07/03/2023 3:27 [...] who have questions please contactthe health director long term care that requested your imaging first. Electronically signed by: Itz Hayward MD, [facility]([phone]), at 07/03/2023 3:27 PM Lino Calles MD IMG DX ORDERABLES * Arterial Duplex Leg, Unil (07/03/2023 9:34 AM EDT) VB Text Report Department: Vascular Surgery Lab Patient: [id number] (LOIDA ROQUE) CPT: [id number] Referring Physician: LINO CALLES ?? Phone: Indications: [...] of Report [facility] 07/03/2023 9:34 AM EDT Lion Calles MD VASCULAR ORDERABLES [facility] * Differential, Automated (07/03/2023 3:07 AM EDT) Pathologist [facility] Neutrophil % 67.2 % [facility] Neutrophil Absolute 5.51 1.70 - 6.10 x10(3)/[facility] LABORATORY Lymph % 20.7 % [facility] Lymphocytes Abs 1.7 0.9 - 3.2 x10(3)/[facility] LABORATORY Monocyte % 7.7 % [facility] Monocyte Abs 0.6 0.3 - 0.9 x10(3)/[facility] LABORATORY Eos % 3.7 % [facility] Eosinophils Abs 0.3 0.0 - 0.4 x10(3)/[facility] LABORATORY Basophil % 0.5 % [facility] Baso Absolute 0.0 0.0 - 0.1 x10(3)/[facility] LABORATORY Immature Gran % 0.20 % [facility] Comment: Immature granulocytes(IG's)percentage and absolute count will include metamyelocytes, myelocytes, and promyelocytes. Blood smears from CBCs yielding IG's will be scanned manually for concordance. If this scan disagrees with the automated IG or if promyelocytes are noted, a manual differential will be performed. Immature Gran Absolute 0.02 0.00 - 0.04 x10(3)/[facility] LABORATORY Blood 07/03/2023 3:07 AM EDT 07/03/2023 3:15 AM EDT Narrative Resulting Agency Comment Spec In Lab Terrence Keating MD HEMATOLOGY ORDERABLE S [facility] [place] [address] * (ABNORMAL) Hemogram (07/03/2023 3:07 AM EDT) Pathologist [facility] White Blood Cell 8.2 4.0 - 9.5 x10(3)/mc L [facility] Red Blood Cell 3.97(L) 4.00 - 5.21 x10(6)/mc L [facility] Hemoglobin 12.5 11.7 - 15.5 g/dL [facility] Hematocrit 38.5 35.7 - 45.8 % [facility] Mean Cell Volume 97.0(H) 82.6 - 94.4 fL [facility] Mean Cell Hemoglobin 31.5 27.1 - 32.0 pg [facility] Mean Cell Hemoglobin Concentration 32.5 31.7 - 35.0 g/dL [facility] Platelet 203 145 - 357 x10(3)/mc L [facility] RDW Standard Deviation 49.6(H) 37.0 - 46.0 fL [facility] RDW coefficient of variation 13.7 11.5 - 14.1 % [facility] Mean Platelet Volume 10.8 7.6 - 12.9 fL [facility] NRBC% auto 0.0 % [facility] NRBC Absolute 0.000 0.000 - 0.000 x10(3)/mc L [facility] Blood 07/03/2023 3:07 AM EDT 07/03/2023 3:15 AM EDT Narrative Resulting Agency Comment Spec In Lab Terrence Keating MD HEMATOLOGY ORDERABLE S [facility] [place] [address] * Heparin (unfractionated) Level (07/03/2023 3:07 AM EDT) UF Heparin 0.49 IU/mL [facility] Comment: Heparin (anti-Xa) [...] Lab Ailyn Irvin MD HEMATOLOGY ORDERABLE S [facility] [place] [address] * (ABNORMAL) Basic Metabolic Panel (non-fasting) (07/03/2023 3:07 AM EDT) Glucose 104 65 - 199 mg/dL [facility] Comment:Diabetes: >=200 mg/d L plus symptoms Blood Urea Nitrogen 16 8 - 18 mg/dL [facility] Creatinine 1.20 0.70 - 1.20 mg/dL [facility] Sodium 138 135 - 145 mmol/L [facility] Potassium 4.2 3.5 - 5.0 mmol/L [facility] Comment: Please note: ??Patients with WBC >100,000 may have falsely elevated Potassium levels. ??For accurate Potassium quantification in these patients send serum separator tube (gold top) for subsequent determinations. ??Contact the Clinical Chemistry Laboratory if there are any questions. Chloride 107 98 - 107 mmol/L [facility] Carbon Dioxide 20(L) 22 - 31 mmol/L [facility] Anion Gap 11 5 - 15 mmol/L [facility] Calcium 8.8 8.5 - 10.5 mg/dL [facility] Est Glomerular Filtration Rate 54(L) >=60 mL/min/1. 73 m?? [facility] [...] MD CHEMISTRY ORDERABL ES Performing Organization Address [facility] Co de Phone Number [facility] [place] [address] * Phosphorus (07/03/2023 3:07 AM EDT) Phosphorus 3.6 2.5 - 4.5 mg/dL [facility] Blood 07/03/2023 3:07 AM EDT 07/03/2023 3:15 AM EDT Narrative Resulting Agency Comment Spec In Lab Eufemia Copeland MD CHEMISTRY ORDERABL ES Performing Organization Address [facility] Co de Phone Number [facility] [place] [address] * Magnesium (07/03/2023 3:07 AM EDT) Magnesium 0.93 0.69 - 1.07 mmol/L [facility] Blood 07/03/2023 3:07 AM EDT 07/03/2023 3:15 AM EDT Narrative Resulting Agency Comment Spec In Lab Eufemia Copeland MD CHEMISTRY ORDERABL ES Performing Organization Address [facility] Co de Phone Number [facility] [place] [address] * Heparin (unfractionated) Level (07/02/2023 8:58 PM EDT) UF Heparin 0.60 IU/mL [facility] Comment: Heparin (anti-Xa) [...] MD HEMATOLOGY ORDERABLE S Performing Organization Address City/State/[facility] Co de Phone Number [facility] [place] [address] * VS Arteriogram Mesenteric Vascular Surgery (07/02/2023 [...] anesthetic: 10 cc 1% lidocaine Heparin: Yes [id number] ?? Units Protamine: No ??mg Antibiotics: Ancef [...] We exchanged the sheath for a 7 [place] guide changer steerable sheath over a stiff wire. ??A Glidewire and Kumpe catheter were used to selectively cannulate the superior mesenteric artery. ??Direct angiography of the superior mesenteric artery was performed, confirming the results of the nonselective aortography performed. ??The lesion was predilated with a 4 mm x 40 mm Weld balloon, and then a 6 mm X [...] MD 07/07/2023 10:48 AM Ailyn Irvin MD [facility] IR ORDERABLES * Differential, Automated (07/02/2023 3:58 AM EDT) Neutrophil % 61.3 % [facility] Neutrophil Absolute 4.67 1.70 - 6.10 x10(3)/[facility] LABORATORY Lymph % 27.6 % [facility] Lymphocytes Abs 2.1 0.9 - 3.2 x10(3)/[facility] LABOR[facility]ORY Monocyte % 6.4 % [facility] Monocyte Abs 0.5 0.3 - 0.9 x10(3)/[facility]OR[facility] Eos % 3.9 % [facility] Eosinophils Abs 0.3 0.0 - 0.4 x10(3)/[facility]OR[facility] Basophil % 0.5 % [facility] Baso Absolute 0.0 0.0 - 0.1 x10(3)/[facility]OR[facility] Immature Gran % 0.30 % [facility] Comment: Immature granulocytes(IG's)percentage and absolute count will include metamyelocytes, myelocytes, and promyelocytes. Blood smears from CBCs yielding IG's will be scanned manually for concordance. If this scan disagrees with the automated IG or if promyelocytes are noted, a manual differential will be performed. Immature Gran Absolute 0.02 0.00 - 0.04 x10(3)/[facility]OR[facility] Blood 07/02/2023 3:58 AM EDT 07/02/2023 4:14 AM EDT Narrative Resulting Agency Comment Spec In Lab Terrence Keating MD HEMATOLOGY ORDERABLE S [facility] [place] [address] * (ABNORMAL) Hemogram (07/02/2023 3:58 AM EDT) [facility] White Blood Cell 7.6 4.0 - 9.5 x10(3)/ L [facility] Red Blood Cell 4.12 4.00 - 5.21 x10(6)/[facility] LABORATORY Hemoglobin 12.9 11.7 - 15.5 g/dL [facility] Hematocrit 39.5 35.7 - 45.8 % [facility] Mean Cell Volume 95.9(H) 82.6 - 94.4 fL [facility] Mean Cell Hemoglobin 31.3 27.1 - 32.0 pg [facility] Mean Cell Hemoglobin Concentration 32.7 31.7 - 35.0 g/dL [facility] Platelet 200 145 - 357 x10(3)/mc L [facility] RDW Standard Deviation 47.4(H) 37.0 - 46.0 fL [facility] RDW coefficient of variation 13.3 11.5 - 14.1 % [facility] Mean Platelet Volume 10.8 7.6 - 12.9 fL [facility] NRBC% auto 0.0 % [facility] NRBC Absolute 0.000 0.000 - 0.000 x10(3)/mc L [facility] Blood 07/02/2023 3:58 AM EDT 07/02/2023 4:14 AM EDT Narrative Resulting Agency Comment Spec In Lab Terrence Keating MD HEMATOLOGY ORDERABLE S [facility] [place] [address] * Heparin (unfractionated) Level (07/02/2023 3:58 AM EDT) UF Heparin 0.57 IU/mL [facility] Comment: Heparin (anti-Xa) [...] Lab Ailyn Irvin MD HEMATOLOGY ORDERABLE S [facility] [place] [address] * (ABNORMAL) Basic Metabolic Panel (non-fasting) (07/02/2023 3:58 AM EDT) Glucose 96 65 - 199 mg/dL [facility] Comment:Diabetes: >=200 mg/d L plus symptoms Blood Urea Nitrogen 15 8 - 18 mg/dL [facility] Creatinine 1.21(H) 0.70 - 1.20 mg/dL [facility] Sodium 133(L) 135 - 145 mmol/L [facility] Potassium 4.1 3.5 - 5.0 mmol/L [facility] Comment: Please note: ??Patients with WBC >100,000 may have falsely elevated Potassium levels. ??For accurate Potassium quantification in these patients send serum separator tube (gold top) for subsequent determinations. ??Contact the Clinical Chemistry Laboratory if there are any questions. Chloride 104 98 - 107 mmol/L [facility] Carbon Dioxide 21(L) 22 - 31 mmol/L [facility] Anion Gap 8 5 - 15 mmol/L [facility] Calcium 8.8 8.5 - 10.5 mg/dL [facility] Est Glomerular Filtration Rate 53(L) >=60 mL/min/1. 73 m?? [facility] [...] MD CHEMISTRY ORDERABL ES Performing Organization Address [facility] Co de Phone Number [facility] [place] [address] * Phosphorus (07/02/2023 3:58 AM EDT) Phosphorus 3.8 2.5 - 4.5 mg/dL [facility] Blood 07/02/2023 3:58 AM EDT 07/02/2023 4:14 AM EDT Narrative Resulting Agency Comment Spec In Lab Eufemia Copeland MD CHEMISTRY ORDERABL ES Performing Organization Address [facility] de Phone Number [facility] [place] [address] * Magnesium (07/02/2023 3:58 AM EDT) Magnesium 0.95 0.69 - 1.07 mmol/L [facility] Blood 07/02/2023 3:58 AM EDT 07/02/2023 4:14 AM EDT Narrative Resulting Agency Comment Spec In Lab Eufemia Copeland MD CHEMISTRY ORDERABL ES Performing Organization Address [facility] Co de Phone Number [facility] [place] [address] * EKG 12 Lead (07/01/2023 12:08 PM EDT) Ventricular rate 48 BPM MUSE SYSTEM Atrial Rate 48 BPM MUSE SYSTEM P-R Interval 192 ms MUSE SYSTEM QRS Duration 92 ms MUSE SYSTEM Q-T Interval 474 ms MUSE SYSTEM QTC Calculated (Bezet) 423 ms MUSE SYSTEM Calculated P Thornton 32 degrees MUSE SYSTEM Calculated R Thornton 45 degrees MUSE SYSTEM Calculated T Thornton 0 degrees MUSE SYSTEM INTERPRETATION Sinus bradycardia [...] 2:56 AM EDT) Neutrophil % 50.5 % [facility] Neutrophil Absolute 3.47 1.70 - 6.10 x10(3)/[facility] LABORATORY Lymph % 36.5 % [facility] Lymphocytes Abs 2.5 0.9 - 3.2 x10(3)/[facility] LABORATORY Monocyte % 7.7 % [facility] Monocyte Abs 0.5 0.3 - 0.9 x10(3)/[facility]OR[facility]ORY Eos % 4.5 % [facility] Eosinophils Abs 0.3 0.0 - 0.4 x10(3)/[facility]OR[facility]ORY Basophil % 0.7 % [facility] Baso Absolute 0.0 0.0 - 0.1 x10(3)/[facility] LABORATORY Immature Gran % 0.10 % [facility] Comment: Immature granulocytes(IG's)percentage and absolute count will include metamyelocytes, myelocytes, and promyelocytes. Blood smears from CBCs yielding IG's will be scanned manually for concordance. If this scan disagrees with the automated IG or if promyelocytes are noted, a manual differential will be performed. Immature Gran Absolute 0.01 0.00 - 0.04 x10(3)/mcL [facility] Blood 07/01/2023 2:56 AM EDT 07/01/2023 3:22 AM EDT Narrative Resulting Agency Comment Spec In Lab Terrence Keating MD HEMATOLOGY ORDERABLE S [facility] [place] [address] * (ABNORMAL) Hemogram (07/01/2023 2:56 AM EDT) White Blood Cell 6.9 4.0 - 9.5 x10(3)/ L [facility] Red Blood Cell 4.04 4.00 - 5.21 x10(6)/[facility] LABORATORY Hemoglobin 12.8 11.7 - 15.5 g/dL [facility] Hematocrit 39.0 35.7 - 45.8 % [facility] Mean Cell Volume 96.5(H) 82.6 - 94.4 fL [facility] Mean Cell Hemoglobin 31.7 27.1 - 32.0 pg [facility] Mean Cell Hemoglobin Concentration 32.8 31.7 - 35.0 g/dL [facility] Platelet 224 145 - 357 x10(3)/[facility] LABORATORY RDW Standard Deviation 47.8(H) 37.0 - 46.0 fL [facility] RDW coefficient of variation 13.3 11.5 - 14.1 % [facility] Mean Platelet Volume 11.1 7.6 - 12.9 fL [facility] NRBC% auto 0.0 % [facility] NRBC Absolute 0.000 0.000 - 0.000 x10(3)/ L [facility] Blood 07/01/2023 2:56 AM EDT 07/01/2023 3:22 AM EDT Narrative Resulting Agency Comment Spec In Lab Terrence Keating MD HEMATOLOGY ORDERABLE S Performing Organization Address [facility]/ZIP Co de Phone Number [facility] [place] [address] * Heparin (unfractionated) Level (07/01/2023 2:56 AM EDT) UF Heparin 0.56 IU/mL [facility] Comment: Heparin (anti-Xa) [...] HEMATOLOGY ORDERABLE S Performing Organization Address [facility]/ZIP Co de Phone Number [facility] [place] [address] * (ABNORMAL) Basic Metabolic Panel (non-fasting) (07/01/2023 2:56 AM EDT) Glucose 95 65 - 199 mg/dL [facility] Comment:Diabetes: >=200 mg/d L plus symptoms Blood Urea Nitrogen 16 8 - 18 mg/dL [facility] Creatinine 1.21(H) 0.70 - 1.20 mg/dL [facility] [...] questions. Chloride 105 98 - 107 mmol/L [facility] Carbon Dioxide 22 22 - 31 mmol/L [facility] Anion Gap 10 5 - 15 mmol/L [facility] Calcium 9.0 8.5 - 10.5 mg/dL [facility] Est Glomerular Filtration Rate 53(L) >=60 mL/min/1. 73 m?? [facility] [...] Lab Eufemia Copeland MD CHEMISTRY ORDERABL ES [facility] [place] [address] * Phosphorus (07/01/2023 2:56 AM EDT) Phosphorus 4.1 2.5 - 4.5 mg/dL [facility] Blood 07/01/2023 2:56 AM EDT 07/01/2023 3:22 AM EDT Narrative Resulting Agency Comment Spec In Lab Eufemia Copeland MD CHEMISTRY ORDERABL ES Performing Organization Address City/[facility]/ZIP Co de Phone Number [facility] [place] [address] * Magnesium (07/01/2023 2:56 AM EDT) [facility] Magnesium 0.95 0.69 - 1.07 mmol/L [facility] Blood 07/01/2023 2:56 AM EDT 07/01/2023 3:22 AM EDT Narrative Resulting Agency Comment Spec In Lab Eufemia Copeland MD CHEMISTRY ORDERABL ES Performing Organization Address [facility] Co de Phone Number [facility] [place] [address] * Heparin (unfractionated) Level (06/30/2023 9:24 AM EDT) [facility] UF Heparin 0.62 IU/mL [facility] Comment: Heparin (anti-Xa) [...] HEMATOLOGY ORDERABLE S Performing Organization Address City/[facility]/ZIP Co de Phone Number [facility] [place] [address] * Differential, Automated (06/30/2023 3:14 AM EDT) [facility] Neutrophil % 49.5 % [facility] Neutrophil Absolute 3.96 1.70 - 6.10 x10(3)/[facility] LABORATORY Lymph % 36.6 % [facility] Lymphocytes Abs 2.9 0.9 - 3.2 x10(3)/[facility]OR[facility] Monocyte % 8.6 % [facility] Monocyte Abs 0.7 0.3 - 0.9 x10(3)/[facility]OR[facility] Eos % 4.1 % [facility] Eosinophils Abs 0.3 0.0 - 0.4 x10(3)/[facility] Basophil % 0.8 % [facility] Baso Absolute 0.1 0.0 - 0.1 x10(3)/[facility]OR[facility]ORY Immature Gran % 0.40 % [facility] Comment: Immature granulocytes(IG's)percentage and absolute count will include metamyelocytes, myelocytes, and promyelocytes. Blood smears from CBCs yielding IG's will be scanned manually for concordance. If this scan disagrees with the automated IG or if promyelocytes are noted, a manual differential will be performed. Immature Gran Absolute 0.03 0.00 - 0.04 x10(3)/[facility] Blood 06/30/2023 3:14 AM EDT 06/30/2023 3:23 AM EDT Narrative Resulting Agency Comment Spec In Lab Terrence Keating MD HEMATOLOGY ORDERABLE S [facility] [place] [address] * Hemogram (06/30/2023 3:14 AM EDT) [facility] White Blood Cell 8.0 4.0 - 9.5 x10(3)/[facility] Red Blood Cell 4.22 4.00 - 5.21 x10(6)/[facility] Hemoglobin 13.1 11.7 - 15.5 g/dL [facility] Hematocrit 39.5 35.7 - 45.8 % [facility] Mean Cell Volume 93.6 82.6 - 94.4 fL [facility] [facility] Mean Cell Hemoglobin 31.0 27.1 - 32.0 pg [facility] Mean Cell Hemoglobin Concentration 33.2 31.7 - 35.0 g/dL [facility] Platelet 235 145 - 357 x10(3)/[facility] RDW Standard Deviation 45.3 37.0 - 46.0 fL [facility] RDW coefficient of variation 13.3 11.5 - 14.1 % [facility] Mean Platelet Volume 11.0 7.6 - 12.9 fL [facility] NRBC% auto 0.0 % [facility] NRBC Absolute 0.000 0.000 - 0.000 x10(3)/[facility] Blood 06/30/2023 3:14 AM EDT 06/30/2023 3:23 AM EDT Narrative Resulting Agency Comment Spec In Lab Terrence Keating MD HEMATOLOGY ORDERABLE S [facility] [place] [address] * Heparin (unfractionated) Level (06/30/2023 3:14 AM EDT) UF Heparin 0.70 IU/mL [facility] Comment: Heparin (anti-Xa) [...] Lab Terrence Keating MD HEMATOLOGY ORDERABLE S [facility] [place] [address] * (ABNORMAL) Basic Metabolic Panel (non-fasting) (06/30/2023 3:14 AM EDT) Glucose 103 65 - 199 mg/dL [facility] Comment:Diabetes: >=200 mg/d L plus symptoms Blood Urea Nitrogen 18 8 - 18 mg/dL [facility] Creatinine 1.22(H) 0.70 - 1.20 mg/dL [facility] Sodium 137 135 - 145 mmol/L [facility] Potassium 3.8 3.5 - 5.0 mmol/L [facility] Comment: Please note: ??Patients with WBC >100,000 may have falsely elevated Potassium levels. ??For accurate Potassium quantification in these patients send serum separator tube (gold top) for subsequent determinations. ??Contact the Clinical Chemistry Laboratory if there are any questions. Chloride 104 98 - 107 mmol/L [facility] Carbon Dioxide 23 22 - 31 mmol/L [facility] Anion Gap 10 5 - 15 mmol/L [facility] Calcium 9.1 8.5 - 10.5 mg/dL [facility] Est Glomerular Filtration Rate 53(L) >=60 mL/min/1. 73 m?? [facility] [...] CHEMISTRY ORDERABL ES Performing Organization Address City/[facility] Co de Phone Number [facility] [place] [address] * Phosphorus (06/30/2023 3:14 AM EDT) Phosphorus 4.4 2.5 - 4.5 mg/dL [facility] Blood 06/30/2023 3:14 AM EDT 06/30/2023 3:23 AM EDT Narrative Resulting Agency Comment Spec In Lab Eufemia Copeland MD CHEMISTRY ORDERABL ES Performing Organization Address [facility] Co de Phone Number [facility] [place] [address] * Magnesium (06/30/2023 3:14 AM EDT) Magnesium 0.94 0.69 - 1.07 mmol/L [facility] Blood 06/30/2023 3:14 AM EDT 06/30/2023 3:23 AM EDT Narrative Resulting Agency Comment Spec In Lab Eufemia Copeland MD CHEMISTRY ORDERABL ES Performing Organization Address [facility] Co de Phone Number [facility] [place] [address] * Heparin (unfractionated) Level (06/29/2023 8:47 PM EDT) UF Heparin 0.75 IU/mL [facility] Comment: Heparin (anti-Xa) [...] HEMATOLOGY ORDERABLE S Performing Organization Address City/[facility] Co de Phone Number [facility] [place] [address] * EKG 12 Lead (06/29/2023 12:55 PM EDT) Pathologist [facility] Ventricular rate 53 BPM MUSE SYSTEM Atrial Rate 53 BPM MUSE SYSTEM P-R Interval 196 ms MUSE SYSTEM QRS Duration 90 ms MUSE SYSTEM Q-T Interval 564 ms MUSE SYSTEM QTC Calculated (Bezet) 529 ms MUSE SYSTEM Calculated P Thornton 30 degrees MUSE SYSTEM Calculated R Thornton 53 degrees MUSE SYSTEM Calculated T Thornton 5 degrees MUSE SYSTEM INTERPRETATION Sinus bradycardia Marked ST abnormality, possible inferior subendocardial injury Prolonged QT Abnormal ECG When compared with ECG of 26-JUN-2023 06:04, Nonspecific T wave abnormality no longer evident in Anterolateral leads QT has lengthened Confirmed by MD Angelo Danette ([id number]) on 06/29/2023 8:34:43 PM MUSE SYSTEM 06/29/2023 12:5 5 PM EDT 06/29/2023 8:34 PM EDT Terrence Keating MD ECG ORDERABLES Performing Organization Address [facility] Co de Phone Number MUSE SYSTEM * (ABNORMAL) Heparin (unfractionated) Level (06/29/2023 11:34 AM EDT) Pathologist [facility] UF Heparin 1.41(Crit ical) IU/mL [facility] Comment: Critical [...] Lab Ailyn Irvin MD HEMATOLOGY ORDERABLE S [facility] [place] [address] * Differential, Automated (06/29/2023 2:39 AM EDT) [facility] Neutrophil % 53.8 % [facility] Neutrophil Absolute 4.46 1.70 - 6.10 x10(3)/[facility] Lymph % 33.5 % [facility] Lymphocytes Abs 2.8 0.9 - 3.2 x10(3)/[facility] Monocyte % 8.3 % [facility] Monocyte Abs 0.7 0.3 - 0.9 x10(3)/[facility] Eos % 3.5 % [facility] Eosinophils Abs 0.3 0.0 - 0.4 x10(3)/[facility] Basophil % 0.5 % [facility] Baso Absolute 0.0 0.0 - 0.1 x10(3)/[facility] Immature Gran % 0.40 % [facility] Comment: Immature granulocytes(IG's)percentage and absolute count will include metamyelocytes, myelocytes, and promyelocytes. Blood smears from CBCs yielding IG's will be scanned manually for concordance. If this scan disagrees with the automated IG or if promyelocytes are noted, a manual differential will be performed. Immature Gran Absolute 0.03 0.00 - 0.04 x10(3)/[facility] Blood 06/29/2023 2:39 AM EDT 06/29/2023 3:33 AM EDT Narrative Resulting Agency Comment Spec In Lab Terrence Keating MD HEMATOLOGY ORDERABLE S [facility] [place] [address] * Hemogram (06/29/2023 2:39 AM EDT) White Blood Cell 8.3 4.0 - 9.5 x10(3)/[facility] Red Blood Cell 4.19 4.00 - 5.21 x10(6)/[facility] Hemoglobin 13.2 11.7 - 15.5 g/dL [facility] Hematocrit 38.9 35.7 - 45.8 % [facility] Mean Cell Volume 92.8 82.6 - 94.4 fL [facility] Mean Cell Hemoglobin 31.5 27.1 - 32.0 pg [facility] Mean Cell Hemoglobin Concentration 33.9 31.7 - 35.0 g/dL [facility] Platelet 237 145 - 357 x10(3)/[facility] RDW Standard Deviation 45.3 37.0 - 46.0 fL [facility] RDW coefficient of variation 13.3 11.5 - 14.1 % [facility] Mean Platelet Volume 11.4 7.6 - 12.9 fL [facility] NRBC% auto 0.0 % [facility] NRBC Absolute 0.000 0.000 - 0.000 x10(3)/mcL [facility] Blood 06/29/2023 2:39 AM EDT 06/29/2023 3:33 AM EDT Narrative Resulting Agency Comment Spec In Lab Terrence Keating MD HEMATOLOGY ORDERABLE S Performing Organization Address City/[facility] Co de Phone Number [facility] [place] [address] * (ABNORMAL) Heparin (unfractionated) Level (06/29/2023 2:39 AM EDT) UF Heparin 1.77(Crit ical) IU/mL [facility] Comment: Specimen drawn more than one hour prior to testing. Results may not be reliable for heparin monitoring. Result may be falsely low. Critical Result called by ?? [facility] Results read back by: ? Guilherme Mdeina at 2023-06-29 03:54:18 Heparin (anti-Xa) levels should [...] Lab Ailyn Irvin MD HEMATOLOGY ORDERABLE S [facility] [place] [address] * (ABNORMAL) Basic Metabolic Panel (non-fasting) (06/29/2023 2:39 AM EDT) Glucose 100 65 - 199 mg/dL [facility] Comment:Diabetes: >=200 mg/d L plus symptoms Blood Urea Nitrogen 21(H) 8 - 18 mg/dL [facility] Creatinine 1.17 0.70 - 1.20 mg/dL [facility] Sodium 138 135 - 145 mmol/L [facility] Potassium 3.9 3.5 - 5.0 mmol/L [facility] Comment: Please note: ??Patients with WBC >100,000 may have falsely elevated Potassium levels. ??For accurate Potassium quantification in these patients send serum separator tube (gold top) for subsequent determinations. ??Contact the Clinical Chemistry Laboratory if there are any questions. Chloride 105 98 - 107 mmol/L [facility] Carbon Dioxide 22 22 - 31 mmol/L [facility] Anion Gap 11 5 - 15 mmol/L [facility] Calcium 9.1 8.5 - 10.5 mg/dL [facility] Est Glomerular Filtration Rate 55(L) >=60 mL/min/1. 73 m?? [facility] [...] MD CHEMISTRY ORDERABL ES Performing Organization Address [facility] Co de Phone Number [facility] [place] [address] * Phosphorus (06/29/2023 2:39 AM EDT) Phosphorus 4.0 2.5 - 4.5 mg/dL [facility] Blood 06/29/2023 2:39 AM EDT 06/29/2023 3:33 AM EDT Narrative Resulting Agency Comment Spec In Lab Eufemia Copeland MD CHEMISTRY ORDERABL ES Performing Organization Address [facility] Co de Phone Number [facility] [place] [address] * Magnesium (06/29/2023 2:39 AM EDT) Magnesium 0.92 0.69 - 1.07 mmol/L [facility] Blood 06/29/2023 2:39 AM EDT 06/29/2023 3:33 AM EDT Narrative Resulting Agency Comment Spec In Lab Eufemia Copeland MD CHEMISTRY ORDERABL ES Performing Organization Address [facility] Co de Phone Number [facility] [place] [address] * US Abdomen Limited (06/28/2023 12:22 PM EDT) WORKSTATION ID [id number] RAD Anatomical Region Laterality Modality Abdomen Ultrasound [...] signed by: Sigrid Owens MD, [facility] ([phone]), at 06/28/2023 2:02 PM Thank you for letting us participate in the care of this patient. If you are a health care provider and have any questions regarding this report, please contact the number above. For patients who have questions, please contact the health director long term care that requested your imaging first. ?Sigrid Owens, [facility] Spinner Cap Frame Electronically Signed Final Report ?? 06/28/2023 02:08 pm Narrative 06/28/2023 2:08 PM EDT Abdominal ? (Signed Final 06/28/2023 02:08 pm) PATIENT INFO: ID #: ? [id number] ?: ??[birth year] (53 yrs)(F) Name: ? LOIDA ?Visit Date: 06/28/2023 12:20 pm ? JUDE PERFORMED BY: Attending: ?Graciela JOHN, Sigrid Munoz Resident: ? Rafaela Huddleston MD Performed By: ? Rick STANFORD, ??Deena Referred By: ?AILYN IRVIN Location: ? Many SERVICE(S) PROVIDED: UABDLIM - Abdominal Limited Survey Single ? 73787 Organ or Quadrant - [id number] INDICATIONS: RUQ pain, R/o Gall bladder colic, [...] 06/28/2023 02:08 pm) PATIENT INFO: ID #: [id number] : [birth year] (53 yrs)(F) Name: LOIDA Visit Date: 06/28/2023 12:20 pm JUDE PERFORMED BY: Attending: Sigrid Owens MD Resident: Rafaela Huddleston MD Performed By: Deena Cabrera RDMS Referred By: AILYN IRVIN Location: Many SERVICE(S) PROVIDED: UABDLIM - Abdominal Limited Survey Single 58838 Organ or Quadrant - [id number] INDICATIONS: RUQ pain, R/o Gall bladder colic, [...] signed by: Sigrid Owens MD, [facility] ([phone]), at 06/28/2023 2:02 PM Thank you for letting us participate in the care of this patient. If you are a health care provider and have any questions regarding this report, please contact the number above. For patients who have questions, please contact the health director long term care that requested your imaging first. Sigrid Owens [facility] Spinner Cap Frame Electronically Signed Final Report 06/28/2023 02:08 pm Ailyn Irvin MD IMG US GEN ORDERABLE S * Duplex Study Visceral Arteries, Comp (06/28/2023 10:19 AM EDT) VB Text Report Department: Vascular Surgery Lab Patient: [id number] (LOIDA ROQUE) CPT: [id number] Referring Physician: HEIDY SULLIVAN ?? Indications: abdominal pain, ? patency/stenosi s Findings: Unilateral ? Waveform ? PSV cm/s ??EDV cm/s ??Patent ?? Dary Visceral Aorta ? 80 ?16 ? Celiac Artery, Proximal ??Traverse-Biphasic ? 119 ?26 ? Celiac Artery, Mid ? Traverse-Biphasic ? 115 ?21 ? Celiac Artery, Distal ? No Vis ?? Sup Mes Artery Proximal ??Biphasic ?427 ?91 ? Sup Mes Artery Middle ?Traverse-Biphasic ? 100 ?17 ? Sup Mes Artery Distal ?Traverse-Biphasic ?64 ?15 ? Hepatic Artery ?No Vis [...] 1:52 AM EDT) Neutrophil % 55.3 % [facility] Neutrophil Absolute 4.46 1.70 - 6.10 x10(3)/[facility] Lymph % 30.6 % [facility] Lymphocytes Abs 2.5 0.9 - 3.2 x10(3)/[facility] Monocyte % 8.8 % [facility] Monocyte Abs 0.7 0.3 - 0.9 x10(3)/[facility] Eos % 4.6 % [facility] Eosinophils Abs 0.4 0.0 - 0.4 x10(3)/[facility] Basophil % 0.5 % [facility] Baso Absolute 0.0 0.0 - 0.1 x10(3)/[facility] Immature Gran % 0.20 % [facility] Comment: Immature granulocytes(IG's)percentage and absolute count will include metamyelocytes, myelocytes, and promyelocytes. Blood smears from CBCs yielding IG's will be scanned manually for concordance. If this scan disagrees with the automated IG or if promyelocytes are noted, a manual differential will be performed. Immature Gran Absolute 0.02 0.00 - 0.04 x10(3)/[facility] Blood 06/28/2023 1:52 AM EDT 06/28/2023 2:05 AM EDT Narrative Resulting Agency Comment Spec In Lab Terrence Keating MD HEMATOLOGY ORDERABLE S [facility] [place] [address] * Hemogram (06/28/2023 1:52 AM EDT) [facility] White Blood Cell 8.1 4.0 - 9.5 x10(3)/[facility] Red Blood Cell 4.30 4.00 - 5.21 x10(6)/[facility] Hemoglobin 13.4 11.7 - 15.5 g/dL [facility] Hematocrit 40.6 35.7 - 45.8 % [facility] Mean Cell Volume 94.4 82.6 - 94.4 fL [facility] Mean Cell Hemoglobin 31.2 27.1 - 32.0 pg [facility] Mean Cell Hemoglobin Concentration 33.0 31.7 - 35.0 g/dL [facility] Platelet 238 145 - 357 x10(3)/[facility] RDW Standard Deviation 45.7 37.0 - 46.0 fL [facility] RDW coefficient of variation 13.2 11.5 - 14.1 % [facility] Mean Platelet Volume 10.8 7.6 - 12.9 fL [facility] NRBC% auto 0.0 % [facility] NRBC Absolute 0.000 0.000 - 0.000 x10(3)/[facility] Blood 06/28/2023 1:52 AM EDT 06/28/2023 2:05 AM EDT Narrative Resulting Agency Comment Spec In Lab Terrence Keating MD HEMATOLOGY ORDERABLE S [facility] [place] [address] * (ABNORMAL) Basic Metabolic Panel (non-fasting) (06/28/2023 1:52 AM EDT) Glucose 101 65 - 199 mg/dL [facility] Comment:Diabetes: >=200 mg/d L plus symptoms Blood Urea Nitrogen 24(H) 8 - 18 mg/dL [facility] Creatinine 1.21(H) 0.70 - 1.20 mg/dL [facility] Sodium 138 135 - 145 mmol/L [facility] Potassium 4.0 3.5 - 5.0 mmol/L [facility] Comment: Please note: ??Patients with WBC >100,000 may have falsely elevated Potassium levels. ??For accurate Potassium quantification in these patients send serum separator tube (gold top) for subsequent determinations. ??Contact the Clinical Chemistry Laboratory if there are any questions. Chloride 105 98 - 107 mmol/L [facility] Carbon Dioxide 21(L) 22 - 31 mmol/L [facility] Anion Gap 12 5 - 15 mmol/L [facility] Calcium 9.0 8.5 - 10.5 mg/dL [facility] Est Glomerular Filtration Rate 53(L) >=60 mL/min/1. 73 m?? [facility] [...] MD CHEMISTRY ORDERABL ES Performing Organization Address [facility]/ZIP Co de Phone Number [facility] [place] [address] * Phosphorus (06/28/2023 1:52 AM EDT) Phosphorus 4.5 2.5 - 4.5 mg/dL [facility] Blood 06/28/2023 1:52 AM EDT 06/28/2023 2:05 AM EDT Narrative Resulting Agency Comment Spec In Lab Eufemia Copeland MD CHEMISTRY ORDERABL ES Performing Organization Address City/[facility]/ZIP Co de Phone Number [facility] [place] [address] * Magnesium (06/28/2023 1:52 AM EDT) Magnesium 0.93 0.69 - 1.07 mmol/L [facility] Blood 06/28/2023 1:52 AM EDT 06/28/2023 2:05 AM EDT Narrative Resulting Agency Comment Spec In Lab Eufemia Copeland MD CHEMISTRY ORDERABL ES [facility] [place] [address] * (ABNORMAL) Basic Metabolic Panel (non-fasting) (06/27/2023 8:06 PM EDT) Pathologist [facility] Glucose 94 65 - 199 mg/dL [facility] Comment:Diabetes: >=200 mg/d L plus symptoms Blood Urea Nitrogen 24(H) 8 - 18 mg/dL [facility] Creatinine 1.28(H) 0.70 - 1.20 mg/dL [facility] Sodium 141 135 - 145 mmol/L [facility] Potassium 4.3 3.5 - 5.0 mmol/L [facility] Comment: Please note: ??Patients with WBC >100,000 may have falsely elevated Potassium levels. ??For accurate Potassium quantification in these patients send serum separator tube (gold top) for subsequent determinations. ??Contact the Clinical Chemistry Laboratory if there are any questions. Chloride 106 98 - 107 mmol/L [facility] Carbon Dioxide 24 22 - 31 mmol/L [facility] Anion Gap 11 5 - 15 mmol/L [facility] Calcium 9.3 8.5 - 10.5 mg/dL [facility] Est Glomerular Filtration Rate 50(L) >=60 mL/min/1. 73 m?? [facility] [...] MD CHEMISTRY ORDERABLES Performing Organization Address City/[facility]/ZIP Co de Phone Number [facility] [place] [address] * (ABNORMAL) Hepatic Function Panel (06/27/2023 4:34 AM EDT) Protein, Total 6.4 6.1 - 8.0 g/dL [facility] Albumin 3.8 3.2 - 5.2 g/dL [facility] Aspartate Aminotransferase 21 0 - 30 unit/L [facility] Alanine Aminotransferase 22 0 - 30 unit/L [facility] Alkaline Phosphatase 56 35 - 105 unit/L [facility] Bilirubin, Total <0.2(L) 0.2 - 1.3 mg/dL [facility] Bilirubin, Direct <0.1 0.0 - 0.3 mg/dL [facility] Blood Venous Draw / Unknown 06/27/2023 4:34 AM EDT 06/27/2023 4:53 AM EDT Narrative Resulting Agency Comment Spec In Lab Ailyn Irvin MD CHEMISTRY ORDERABLES Performing Organization Address City/[facility]/ZIP Co de Phone Number [facility] [place] [address] * Differential, Automated (06/27/2023 4:34 AM EDT) Neutrophil % 52.7 % [facility] Neutrophil Absolute 4.01 1.70 - 6.10 x10(3)/[facility] Lymph % 33.8 % [facility] Lymphocytes Abs 2.6 0.9 - 3.2 x10(3)/[facility] Monocyte % 8.8 % [facility] Monocyte Abs 0.7 0.3 - 0.9 x10(3)/[facility] Eos % 3.8 % [facility] Eosinophils Abs 0.3 0.0 - 0.4 x10(3)/[facility] Basophil % 0.5 % [facility] Baso Absolute 0.0 0.0 - 0.1 x10(3)/[facility] Imm[place] Gran % 0.40 % [facility] Comment: Immature granulocytes(IG's)percentage and absolute count will include metamyelocytes, myelocytes, and promyelocytes. Blood smears from CBCs yielding IG's will be scanned manually for concordance. If this scan disagrees with the automated IG or if promyelocytes are noted, a manual differential will be performed. Immature Gran Absolute 0.03 0.00 - 0.04 x10(3)/[facility] Blood 06/27/2023 4:34 AM EDT 06/27/2023 4:51 AM EDT Narrative Resulting Agency Comment Spec In Lab Terrence Keating MD HEMATOLOGY ORDERABLE S [facility] [place] [address] * Hemogram (06/27/2023 4:34 AM EDT) White Blood Cell 7.6 4.0 - 9.5 x10(3)/[facility] Red Blood Cell 4.15 4.00 - 5.21 x10(6)/[facility] Hemoglobin 12.9 11.7 - 15.5 g/dL [facility] Hematocrit 39.0 35.7 - 45.8 % [facility] Mean Cell Volume 94.0 82.6 - 94.4 fL [facility] Mean Cell Hemoglobin 31.1 27.1 - 32.0 pg [facility] Mean Cell Hemoglobin Concentration 33.1 31.7 - 35.0 g/dL [facility] Platelet 245 145 - 357 x10(3)/[facility] RDW Standard Deviation 45.2 37.0 - 46.0 [facility] LABORATORY RDW coefficient of variation 13.2 11.5 - 14.1 % [facility] Mean Platelet Volume 11.2 7.6 - 12.9 fL [facility] NRBC% auto 0.0 % [facility] NRBC Absolute 0.000 0.000 - 0.000 x10(3)/[facility] Blood 06/27/2023 4:34 AM EDT 06/27/2023 4:51 AM EDT Narrative Resulting Agency Comment Spec In Lab Terrence Keating MD HEMATOLOGY ORDERABLE S [facility] [place] [address] * (ABNORMAL) Basic Metabolic Panel (non-fasting) (06/27/2023 4:34 AM EDT) Glucose 99 65 - 199 mg/dL [facility] Comment:Diabetes: >=200 mg/d L plus symptoms Blood Urea Nitrogen 26(H) 8 - 18 mg/dL [facility] Creatinine 1.22(H) 0.70 - 1.20 mg/dL [facility] Sodium 138 135 - 145 mmol/L [facility] Potassium 3.9 3.5 - 5.0 mmol/L [facility] Comment: Please note: ??Patients with WBC >100,000 may have falsely elevated Potassium levels. ??For accurate Potassium quantification in these patients send serum separator tube (gold top) for subsequent determinations. ??Contact the Clinical Chemistry Laboratory if there are any questions. Chloride 105 98 - 107 mmol/L [facility] Carbon Dioxide 22 22 - 31 mmol/L [facility] Anion Gap 11 5 - 15 mmol/L [facility] Calcium 9.1 8.5 - 10.5 mg/dL [facility] Est Glomerular Filtration Rate 53(L) >=60 mL/min/1. 73 m?? [facility] [...] CHEMISTRY ORDERABL ES Performing Organization Address City/[facility]/ZIP Co de Phone Number [facility] [place] [address] * (ABNORMAL) Phosphorus (06/27/2023 4:34 AM EDT) Phosphorus 4.7(H) 2.5 - 4.5 mg/dL [facility] Blood 06/27/2023 4:34 AM EDT 06/27/2023 4:51 AM EDT Narrative Resulting Agency Comment Spec In Lab Eufemia Copeland MD CHEMISTRY ORDERABL ES [facility] [place] [address] * Magnesium (06/27/2023 4:34 AM EDT) Magnesium 0.90 0.69 - 1.07 mmol/L [facility] Blood 06/27/2023 4:34 AM EDT 06/27/2023 4:51 AM EDT Narrative Resulting Agency Comment Spec In Lab Eufemia Copeland MD CHEMISTRY ORDERABL ES [facility] [place] [address] * (ABNORMAL) Basic Metabolic Panel (non-fasting) (06/26/2023 4:58 PM EDT) Glucose 106 65 - 199 mg/dL [facility] Comment:Diabetes: >=200 mg/d L plus symptoms Blood Urea Nitrogen 24(H) 8 - 18 mg/dL [facility] Creatinine 1.23(H) 0.70 - 1.20 mg/dL [facility] Sodium 138 135 - 145 mmol/L [facility] Potassium 4.2 3.5 - 5.0 mmol/L [facility] Comment: Please note: ??Patients with WBC >100,000 may have falsely elevated Potassium levels. ??For accurate Potassium quantification in these patients send serum separator tube (gold top) for subsequent determinations. ??Contact the Clinical Chemistry Laboratory if there are any questions. Chloride 104 98 - 107 mmol/L [facility] Carbon Dioxide 21(L) 22 - 31 mmol/L [facility] Anion Gap 13 5 - 15 mmol/L [facility] Calcium 9.1 8.5 - 10.5 mg/dL [facility] Est Glomerular Filtration Rate 52(L) >=60 mL/min/1. 73 m?? [facility] [...] Irvin MD CHEMISTRY ORDERABLES Performing Organization Address [facility]/ZIP Co de Phone Number [facility] [place] [address] * Urinalysis Microscopic Exam (06/26/2023 11:09 AM EDT) RBC, Urine 0 0 - 4 /HPF [facility] WBC, Urine 3 0 - 5 /HPF [facility] Squamous Epithelial Cells Raw Data, Urine 1 <=4 /HPF [facility] Hyaline Casts, Urine 1 0 - 2 /LPF [facility] Clean Catch Urine 06/26/2023 11:09 AM EDT 06/26/2023 5:45 PM EDT Narrative Resulting Agency Comment Spec In Lab Ailyn Irvin MD URINE ORDERABLES Performing Organization Address [facility] Co de Phone Number [facility] [place] [address] * (ABNORMAL) Urinalysis with reflex Culture (06/26/2023 11:09 AM EDT) Glucose, Urine Dipstick Negative Negative mg/dL [facility] Protein, Urine Dipstick Negative Negative mg/dL [facility] Bilirubin, Urine Dipstick Negative Negative mg/dL [facility] Comment: Clinical correlation required for positive Urine Bilirubin results as false positive may occur with some drugs and drug related products. If a false positive is suspected a serum total bilirubin should be considered if clinically indicated. Urobilinogen, Urine Dipstick Normal Normal mg/dL [facility] pH, Urn (dipstick) 6.0 5.0 - 8.0 [facility] Blood, Urine Dipstick Negative Negative mg/dL [facility] Ketone, Urine Dipstick Negative Negative mg/dL [facility] Nitrite, Urine Dipstick Negative Negative [facility] Leukocytes, Urine Dipstick Trace(A) Negative [facility] Appearance, Urine Dipstick Clear Clear [facility] Specific [place] Urine Automated 1.013 1.005 - 1.030 [facility] Color, Urine Dipstick Yellow Yellow [facility] Reflex to Culture No [facility] Clean Catch Urine 06/26/2023 11:09 AM EDT 06/26/2023 5:45 PM EDT Narrative Resulting Agency Comment Spec In Lab Ailyn Irvin MD URINE ORDERABLES [facility] [place] [address] * EKG 12 Lead (06/26/2023 6:04 AM EDT) Ventricular rate 46 BPM MUSE SYSTEM Atrial Rate 46 BPM MUSE SYSTEM P-R Interval 204 ms MUSE SYSTEM QRS Duration 90 ms MUSE SYSTEM Q-T Interval 466 ms MUSE SYSTEM QTC Calculated (Bezet) 407 ms MUSE SYSTEM Calculated P Thornton 38 degrees MUSE SYSTEM Calculated R Thornton 48 degrees MUSE SYSTEM Calculated T Thornton 13 degrees MUSE SYSTEM INTERPRETATION Sinus bradycardia Nonspecific ST and T wave abnormality Abnormal ECG When compared with ECG of 23-JUN-2023 09:54, No significant change was found Confirmed by MD Dalia, Willy Huerta ([id number]) on 06/29/2023 6:09:20 AM MUSE SYSTEM 06/26/2023 6:04 AM EDT 06/29/2023 6:09 AM EDT Eufemia Copeland MD ECG ORDERABLES MUSE SYSTEM * Differential, Automated (06/26/2023 4:06 AM EDT) Pathologist [facility] Neutrophil % 55.3 % [facility] Neutrophil Absolute 4.63 1.70 - 6.10 x10(3)/[facility] Lymph % 32.6 % [facility] Lymphocytes Abs 2.7 0.9 - 3.2 x10(3)/[facility] Monocyte % 8.2 % [facility] Monocyte Abs 0.7 0.3 - 0.9 x10(3)/[facility] Eos % 3.2 % [facility] Eosinophils Abs 0.3 0.0 - 0.4 x10(3)/[facility] Basophil % 0.5 % [facility] Baso Absolute 0.0 0.0 - 0.1 x10(3)/[facility] Immature Gran % 0.20 % [facility] Comment: Immature granulocytes(IG's)percentage and absolute count will include metamyelocytes, myelocytes, and promyelocytes. Blood smears from CBCs yielding IG's will be scanned manually for concordance. If this scan disagrees with the automated IG or if promyelocytes are noted, a manual differential will be performed. Immature Gran Absolute 0.02 0.00 - 0.04 x10(3)/[facility] Blood 06/26/2023 4:06 AM EDT 06/26/2023 4:18 AM EDT Narrative Resulting Agency Comment Spec In Lab Terrence Keating MD HEMATOLOGY ORDERABLE S [facility] [place] [address] * (ABNORMAL) Hemogram (06/26/2023 4:06 AM EDT) White Blood Cell 8.4 4.0 - 9.5 x10(3)/ L [facility] Red Blood Cell 4.52 4.00 - 5.21 x10(6)/ L [facility] Hemoglobin 14.0 11.7 - 15.5 g/dL [facility] Hematocrit 43.6 35.7 - 45.8 % [facility] Mean Cell Volume 96.5(H) 82.6 - 94.4 fL [facility] Mean Cell Hemoglobin 31.0 27.1 - 32.0 pg [facility] Mean Cell Hemoglobin Concentration 32.1 31.7 - 35.0 g/dL [facility] Platelet 258 145 - 357 x10(3)/[facility] RDW Standard Deviation 46.7(H) 37.0 - 46.0 [facility] RDW coefficient of variation 13.2 11.5 - 14.1 % [facility] Mean Platelet Volume 11.1 7.6 - 12.9 [facility] NRBC% auto 0.0 % [facility] NRBC Absolute 0.000 0.000 - 0.000 x10(3)/[facility] Blood 06/26/2023 4:06 AM EDT 06/26/2023 4:18 AM EDT Narrative Resulting Agency Comment Spec In Lab Terrence Keating MD HEMATOLOGY ORDERABLE S [facility] [place] [address] * (ABNORMAL) Basic Metabolic Panel (non-fasting) (06/26/2023 4:06 AM EDT) Glucose 100 65 - 199 mg/dL [facility] Comment:Diabetes: >=200 mg/d L plus symptoms Blood Urea Nitrogen 25(H) 8 - 18 mg/dL [facility] Creatinine 1.24(H) 0.70 - 1.20 mg/dL [facility] Sodium 135 135 - 145 mmol/L [facility] Potassium 4.2 3.5 - 5.0 mmol/L [facility] Comment: Please note: ??Patients with WBC >100,000 may have falsely elevated Potassium levels. ??For accurate Potassium quantification in these patients send serum separator tube (gold top) for subsequent determinations. ??Contact the Clinical Chemistry Laboratory if there are any questions. Chloride 104 98 - 107 mmol/L [facility] Carbon Dioxide 19(L) 22 - 31 mmol/L [facility] Anion Gap 12 5 - 15 mmol/L [facility] Calcium 9.6 8.5 - 10.5 mg/dL [facility] Est Glomerular Filtration Rate 52(L) >=60 mL/min/1. 73 m?? [facility] [...] Lab Eufemia Copeland MD CHEMISTRY ORDERABL ES [facility] [place] [address] * Phosphorus (06/26/2023 4:06 AM EDT) Phosphorus 4.3 2.5 - 4.5 mg/dL [facility] Blood 06/26/2023 4:06 AM EDT 06/26/2023 4:18 AM EDT Narrative Resulting Agency Comment Spec In Lab Eufemia Copeland MD CHEMISTRY ORDERABL ES Performing Organization Address City/[facility]/ZIP Co de Phone Number [facility] [place] [address] * Magnesium (06/26/2023 4:06 AM EDT) Pathologist [facility] Magnesium 0.96 0.69 - 1.07 mmol/L [facility] Blood 06/26/2023 4:06 AM EDT 06/26/2023 4:18 AM EDT Narrative Resulting Agency Comment Spec In Lab Eufemia Copeland MD CHEMISTRY ORDERABL ES Performing Organization Address [facility] Co de Phone Number [facility] [place] [address] * Differential, Automated (06/25/2023 1:50 AM EDT) [facility] Neutrophil % 56.2 % [facility] Neutrophil Absolute 4.06 1.70 - 6.10 x10(3)/[facility] Lymph % 30.5 % [facility] Lymphocytes Abs 2.2 0.9 - 3.2 x10(3)/[facility] Monocyte % 8.7 % [facility] Monocyte Abs 0.6 0.3 - 0.9 x10(3)/[facility] Eos % 3.9 % [facility] Eosinophils Abs 0.3 0.0 - 0.4 x10(3)/[facility] Basophil % 0.6 % [facility] Baso Absolute 0.0 0.0 - 0.1 x10(3)/[facility] Immature Gran % 0.10 % [facility] Comment: Immature granulocytes(IG's)percentage and absolute count will include metamyelocytes, myelocytes, and promyelocytes. Blood smears from CBCs yielding IG's will be scanned manually for concordance. If this scan disagrees with the automated IG or if promyelocytes are noted, a manual differential will be performed. Immature Gran Absolute 0.01 0.00 - 0.04 x10(3)/[facility] Blood 06/25/2023 1:50 AM EDT 06/25/2023 2:16 AM EDT Narrative Resulting Agency Comment Spec In Lab Terrence Keating MD HEMATOLOGY ORDERABLE S [facility] [place] [address] * Hemogram (06/25/2023 1:50 AM EDT) White Blood Cell 7.2 4.0 - 9.5 x10(3)/[facility] Red Blood Cell 4.57 4.00 - 5.21 x10(6)/[facility] Hemoglobin 14.4 11.7 - 15.5 g/dL [facility] Hematocrit 42.9 35.7 - 45.8 % [facility] Mean Cell Volume 93.9 82.6 - 94.4 fL [facility] Mean Cell Hemoglobin 31.5 27.1 - 32.0 pg [facility] Mean Cell Hemoglobin Concentration 33.6 31.7 - 35.0 g/dL [facility] Platelet 241 145 - 357 x10(3)/[facility] RDW Standard Deviation 44.7 37.0 - 46.0 fL [facility] RDW coefficient of variation 13.2 11.5 - 14.1 % [facility] Mean Platelet Volume 11.5 7.6 - 12.9 fL [facility] NRBC% auto 0.0 % [facility] NRBC Absolute 0.000 0.000 - 0.000 x10(3)/[facility] Blood 06/25/2023 1:50 AM EDT 06/25/2023 2:16 AM EDT Narrative Resulting Agency Comment Spec In Lab Terrence Keating MD HEMATOLOGY ORDERABLE S [facility] [place] [address] * (ABNORMAL) Basic Metabolic Panel (non-fasting) (06/25/2023 1:50 AM EDT) Glucose 99 65 - 199 mg/dL [facility] Comment:Diabetes: >=200 mg/d L plus symptoms Blood Urea Nitrogen 20(H) 8 - 18 mg/dL [facility] Creatinine 1.59(H) 0.70 - 1.20 mg/dL [facility] Sodium 139 135 - 145 mmol/L [facility] Potassium 3.4(L) 3.5 - 5.0 mmol/L [facility] Comment: Please note: ??Patients with WBC >100,000 may have falsely elevated Potassium levels. ??For accurate Potassium quantification in these patients send serum separator tube (gold top) for subsequent determinations. ??Contact the Clinical Chemistry Laboratory if there are any questions. Chloride 102 98 - 107 mmol/L [facility] Carbon Dioxide 25 22 - 31 mmol/L [facility] Anion Gap 12 5 - 15 mmol/L [facility] Calcium 9.4 8.5 - 10.5 mg/dL [facility] Est Glomerular Filtration Rate 38(L) >=60 mL/min/1. 73 m?? [facility] [...] MD CHEMISTRY ORDERABL ES Performing Organization Address [facility] Co de Phone Number [facility] [place] [address] * Phosphorus (06/25/2023 1:50 AM EDT) Phosphorus 4.4 2.5 - 4.5 mg/dL [facility] Blood 06/25/2023 1:50 AM EDT 06/25/2023 2:16 AM EDT Narrative Resulting Agency Comment Spec In Lab Eufemia Copeland MD CHEMISTRY ORDERABL ES Performing Organization Address [facility] Co de Phone Number [facility] [place] [address] * Magnesium (06/25/2023 1:50 AM EDT) Magnesium 0.99 0.69 - 1.07 mmol/L [facility] Blood 06/25/2023 1:50 AM EDT 06/25/2023 2:16 AM EDT Narrative Resulting Agency Comment Spec In Lab Eufemia Copeland MD CHEMISTRY ORDERABL ES Performing Organization Address [facility] Co de Phone Number [facility] [place] [address] * (ABNORMAL) pro-Brain Natriuretic Peptide (06/24/2023 3:38 AM EDT) NT-proBNP 1,239(H) <=124 pg/mL [facility] Blood Venous Draw / Unknown 06/24/2023 3:38 AM EDT 06/24/2023 3:49 AM EDT Narrative Resulting Agency Comment Spec In Lab Ailyn Irvin MD CHEMISTRY ORDERABLES Performing Organization Address City/[facility]/[place] [address] * Differential, Automated (06/24/2023 3:38 AM EDT) Neutrophil % 51.6 % [facility] Neutrophil Absolute 3.54 1.70 - 6.10 x10(3)/[facility] Lymph % 36.0 % [facility] Lymphocytes Abs 2.5 0.9 - 3.2 x10(3)/[facility] Monocyte % 7.8 % [facility] Monocyte Abs 0.5 0.3 - 0.9 x10(3)/[facility] Eos % 3.6 % [facility] Eosinophils Abs 0.2 0.0 - 0.4 x10(3)/[facility] Basophil % 0.7 % [facility] Baso Absolute 0.0 0.0 - 0.1 x10(3)/[facility] Immature Gran % 0.30 % [facility] Comment: Immature granulocytes(IG's)percentage and absolute count will include metamyelocytes, myelocytes, and promyelocytes. Blood smears from CBCs yielding IG's will be scanned manually for concordance. If this scan disagrees with the automated IG or if promyelocytes are noted, a manual differential will be performed. Immature Gran Absolute 0.02 0.00 - 0.04 x10(3)/[facility] Blood 06/24/2023 3:38 AM EDT 06/24/2023 3:49 AM EDT Narrative Resulting Agency Comment Spec In Lab Terrence Keating MD HEMATOLOGY ORDERABLE S Performing Organization Address City/[facility]/[place] [address] * Hemogram (06/24/2023 3:38 AM EDT) White Blood Cell 6.9 4.0 - 9.5 x10(3)/[facility] Red Blood Cell 4.36 4.00 - 5.21 x10(6)/[facility] Hemoglobin 13.6 11.7 - 15.5 g/dL [facility] Hematocrit 40.7 35.7 - 45.8 % [facility] Mean Cell Volume 93.3 82.6 - 94.4 fL [facility] Mean Cell Hemoglobin 31.2 27.1 - 32.0 pg [facility] Mean Cell Hemoglobin Concentration 33.4 31.7 - 35.0 g/dL [facility] Platelet 220 145 - 357 x10(3)/[facility] RDW Standard Deviation 44.5 37.0 - 46.0 fL [facility] RDW coefficient of variation 13.0 11.5 - 14.1 % [facility] Mean Platelet Volume 10.8 7.6 - 12.9 fL [facility] NRBC% auto 0.0 % [facility] NRBC Absolute 0.000 0.000 - 0.000 x10(3)/[facility] Blood 06/24/2023 3:38 AM EDT 06/24/2023 3:49 AM EDT Narrative Resulting Agency Comment Spec In Lab Terrence Keating MD HEMATOLOGY ORDERABLE S [facility] [place] [address] * Heparin (unfractionated) Level (06/24/2023 3:38 AM EDT) UF Heparin 0.44 IU/mL [facility] Comment: Heparin (anti-Xa) [...] Lab Terrence Keating MD HEMATOLOGY ORDERABLE S [facility] [place] [address] * (ABNORMAL) Basic Metabolic Panel (non-fasting) (06/24/2023 3:38 AM EDT) Glucose 96 65 - 199 mg/dL [facility] Comment:Diabetes: >=200 mg/d L plus symptoms Blood Urea Nitrogen 20(H) 8 - 18 mg/dL [facility] Creatinine 1.14 0.70 - 1.20 mg/dL [facility] Sodium 138 135 - 145 mmol/L [facility] Potassium 4.2 3.5 - 5.0 mmol/L [facility] Comment: Please note: ??Patients with WBC >100,000 may have falsely elevated Potassium levels. ??For accurate Potassium quantification in these patients send serum separator tube (gold top) for subsequent determinations. ??Contact the Clinical Chemistry Laboratory if there are any questions. Chloride 104 98 - 107 mmol/L [facility] Carbon Dioxide 21(L) 22 - 31 mmol/L [facility] Anion Gap 13 5 - 15 mmol/L [facility] Calcium 9.1 8.5 - 10.5 mg/dL [facility] Est Glomerular Filtration Rate 57(L) >=60 mL/min/1. 73 m?? [facility] [...] CHEMISTRY ORDERABL ES Performing Organization Address [facility] de Phone Number [facility] [place] [address] * Phosphorus (06/24/2023 3:38 AM EDT) Phosphorus 4.1 2.5 - 4.5 mg/dL [facility] Blood 06/24/2023 3:38 AM EDT 06/24/2023 3:49 AM EDT Narrative Resulting Agency Comment Spec In Lab Eufemia Copeland MD CHEMISTRY ORDERABL ES Performing Organization Address [facility] Co de Phone Number [facility] [place] [address] * Magnesium (06/24/2023 3:38 AM EDT) Magnesium 0.96 0.69 - 1.07 mmol/L [facility] Blood 06/24/2023 3:38 AM EDT 06/24/2023 3:49 AM EDT Narrative Resulting Agency Comment Spec In Lab Eufemia Copeland MD CHEMISTRY ORDERABL ES Performing Organization Address [facility]/ZIP Co de Phone Number [facility] [place] [address] * Heparin (unfractionated) Level (06/23/2023 9:24 PM EDT) Pathologist [facility] UF Heparin 0.51 IU/mL [facility] Comment: Heparin (anti-Xa) [...] Lab Terrence Keating MD HEMATOLOGY ORDERABLE S [facility] [place] [address] * Duplex Study Visceral Arteries, Comp (06/23/2023 3:36 PM EDT) Pathologist [facility] VB Text Report Department: Vascular Surgery Lab Patient: [id number] (JUDE LOIDA) CPT: 31005 Referring Physician: AILYN IRVIN ?? Phone: Indications: [...] 3:01 PM EDT) UF Heparin 0.90 IU/mL [facility] Comment: Heparin (anti-Xa) [...] HEMATOLOGY ORDERABLE S Performing Organization Address City/[facility]/ZIP Co de Phone Number [facility] [place] [address] * EKG 12 Lead (06/23/2023 9:54 AM EDT) Ventricular rate 48 BPM MUSE SYSTEM Atrial Rate 48 BPM MUSE SYSTEM P-R Interval 192 ms MUSE SYSTEM QRS Duration 92 ms MUSE SYSTEM Q-T Interval 462 ms MUSE SYSTEM QTC Calculated (Bezet) 412 ms MUSE SYSTEM Calculated P Thornton 21 degrees MUSE SYSTEM Calculated R Thornton 20 degrees MUSE SYSTEM Calculated T Thornton 16 degrees MUSE SYSTEM INTERPRETATION Sinus bradycardia Nonspecific ST and T wave abnormality Abnormal ECG When compared with ECG of 22-JUN-2023 11:13, Criteria for Septal infarct are no longer Present No significant change was found Confirmed by MD [place], Gus ([id number]) on 06/23/2023 12:59:50 PM MUSE SYSTEM 06/23/2023 9:54 AM EDT 06/23/2023 12:59 PM EDT Ailyn Irvin MD ECG ORDERABLES Performing Organization Address [facility]/ZIP Co de Phone Number MUSE SYSTEM * Differential, Automated (06/23/2023 4:12 AM EDT) Neutrophil % 52.8 % [facility] Neutrophil Absolute 4.30 1.70 - 6.10 x10(3)/[facility] Lymph % 33.9 % [facility] Lymphocytes Abs 2.8 0.9 - 3.2 x10(3)/[facility] Monocyte % 8.3 % [facility] Monocyte Abs 0.7 0.3 - 0.9 x10(3)/[facility] Eos % 3.9 % [facility] Eosinophils Abs 0.3 0.0 - 0.4 x10(3)/[facility] Basophil % 0.7 % [facility] Baso Absolute 0.1 0.0 - 0.1 x10(3)/[facility] Immature Gran % 0.40 % [facility] Comment: Immature granulocytes(IG's)percentage and absolute count will include metamyelocytes, myelocytes, and promyelocytes. Blood smears from CBCs yielding IG's will be scanned manually for concordance. If this scan disagrees with the automated IG or if promyelocytes are noted, a manual differential will be performed. Immature Gran Absolute 0.03 0.00 - 0.04 x10(3)/[facility] Blood 06/23/2023 4:12 AM EDT 06/23/2023 4:38 AM EDT Narrative Resulting Agency Comment Spec In Lab Terrence Keating MD HEMATOLOGY ORDERABLE S [facility] [place] [address] * Hemogram (06/23/2023 4:12 AM EDT) White Blood Cell 8.2 4.0 - 9.5 x10(3)/[facility] Red Blood Cell 4.59 4.00 - 5.21 x10(6)/[facility] Hemoglobin 14.3 11.7 - 15.5 g/dL [facility] Hematocrit 43.1 35.7 - 45.8 % [facility] Mean Cell Volume 93.9 82.6 - 94.4 fL [facility] Mean Cell Hemoglobin 31.2 27.1 - 32.0 pg [facility] Mean Cell Hemoglobin Concentration 33.2 31.7 - 35.0 g/dL [facility] Platelet 233 145 - 357 x10(3)/[facility] RDW Standard Deviation 44.2 37.0 - 46.0 fL [facility] RDW coefficient of variation 13.0 11.5 - 14.1 % [facility] Mean Platelet Volume 11.3 7.6 - 12.9 fL [facility] NRBC% auto 0.0 % [facility] NRBC Absolute 0.000 0.000 - 0.000 x10(3)/[facility] Blood 06/23/2023 4:12 AM EDT 06/23/2023 4:38 AM EDT Narrative Resulting Agency Comment Spec In Lab Terrence Keating MD HEMATOLOGY ORDERABLE S [facility] [place] [address] * (ABNORMAL) Heparin (unfractionated) Level (06/23/2023 4:12 AM EDT) UF Heparin 1.95(Crit ical) IU/mL [facility] Comment: Critical [...] Lab Terrence Keating MD HEMATOLOGY ORDERABLE S [facility] [place] [address] * (ABNORMAL) Basic Metabolic Panel (non-fasting) (06/23/2023 4:12 AM EDT) Glucose 87 65 - 199 mg/dL [facility] Comment:Diabetes: >=200 mg/d L plus symptoms Blood Urea Nitrogen 23(H) 8 - 18 mg/dL [facility] Creatinine 1.08 0.70 - 1.20 mg/dL [facility] Sodium 137 135 - 145 mmol/L [facility] Potassium 3.8 3.5 - 5.0 mmol/L [facility] [...] [facility] Est Glomerular Filtration Rate 61 >=60 mL/min/1. 73 m?? [facility] [...] CHEMISTRY ORDERABL ES Performing Organization Address City/[facility] Co de Phone Number [facility] [place] [address] * Phosphorus (06/23/2023 4:12 AM EDT) Phosphorus 4.5 2.5 - 4.5 mg/dL [facility] Blood 06/23/2023 4:12 AM EDT 06/23/2023 4:38 AM EDT Narrative Resulting Agency Comment Spec In Lab Eufemia Copeland MD CHEMISTRY ORDERABL ES Performing Organization Address [facility] Co de Phone Number [facility] [place] [address] * Magnesium (06/23/2023 4:12 AM EDT) Magnesium 1.03 0.69 - 1.07 mmol/L [facility] Blood 06/23/2023 4:12 AM EDT 06/23/2023 4:38 AM EDT Narrative Resulting Agency Comment Spec In Lab Eufemia Copeland MD CHEMISTRY ORDERABL ES Performing Organization Address [facility] Co de Phone Number [facility] [place] [address] * ECHO LMTD W CONTRAST W LMTD SPEC DOPP COLOR DOPP (06/22/2023 4:25 PM EDT) Anatomical Region Laterality Modality Cardiac Other 06/22/2023 2:49 PM EDT Narrative 06/22/2023 4:42 PM EDT [address] [place] [address] ? Echocardiogram Report Name: JUDE, LOIDA ?Study Date: 06/22/2023 02:49 PM ?Patient Location: [place] [address] A ??HR: 57 : 1970 ?Height: 162 cm ? Account: [id number] Age: 53 yrs ?Weight: 102 kg Gender: [...] slight decrease in LV systolic function. Procedure Complete-[id number]. Satisfactory quality. There is normal sinus rhythm. [...] Note Jose Gallegos MD - 06/22/2023 1 [place] [id number] Echocardiogram Report Name: LOIDA ROQUE Study Date: 06/22/2023 02:49 PM Patient Location: [place] [address] A HR:57 : 1970 Height: 162 cmAccount: [id number] Age: 53 yrs Weight: 102 kg Gender: [...] a slightdecrease in LV systolic function. Procedure Complete-[id number]. Satisfactory quality. There is normal sinus rhythm. [...] * (ABNORMAL) Troponin (06/22/2023 2:38 PM EDT) [facility] Troponin-T, High Sensitivity 22(H) <=14 ng/L [facility] Comment: [...] [facility] Test Catalog Reference: Fourth [place] Definition of Myocardial Infarction. Journal of the [place] [employer] 2018;72:4278-7123 Blood 06/22/2023 2:38 PM EDT 06/22/2023 2:50 PM EDT Narrative Resulting Agency Comment Spec In Lab Ailyn Irvin MD CHEMISTRY ORDERABLES Performing Organization Address [facility] Co de Phone Number [facility] [place] [address] * Duplex for DVT, Arm, Unilat (06/22/2023 2:24 PM EDT) VB Text Report Department: Vascular Surgery Lab Patient: [id number] (LOIDA ROQUE) CPT: [id number] Referring Physician: AILYN IRVIN ?? Phone: Indications: [...] Irvin MD VASCULAR ORDERABLES Performing Organization Address [facility] Co de Phone Number [facility] * [...] have questions please contact the health director long term care that requested your imaging first. ? Electronically signed by: Itz Hayward MD, [facility] ??([phone]), at 06/22/2023 11:47 AM Narrative 06/22/2023 11:47 [...] who have questions please contactthe health director long term care that requested your imaging first. Electronically signed by: Itz Hayward MD, [facility]([phone]), at 06/22/2023 11:47 AM Ailyn Irvin MD IMG DX ORDERABLES * (ABNORMAL) Troponin (06/22/2023 11:24 AM EDT) [facility] Troponin-T, High Sensitivity 22(H) <=14 ng/L [facility] Comment: [...] [facility] Test Catalog Reference: Fourth [place] Definition of Myocardial Infarction. Journal of the [place] [employer] 2018;72:4628-0332 Blood 06/22/2023 11:2 4 AM EDT 06/22/2023 11:44 AM EDT Narrative Resulting Agency Comment Spec In Lab Ailyn Irvin MD CHEMISTRY ORDERABLES [facility] [place] [id number] * EKG 12 Lead (06/22/2023 11:13 AM EDT) Ventricular rate 63 BPM MUSE SYSTEM Atrial Rate 63 BPM MUSE SYSTEM P-R Interval 162 ms MUSE SYSTEM QRS Duration 86 ms MUSE SYSTEM Q-T Interval 382 ms MUSE SYSTEM QTC Calculated (Bezet) 390 ms MUSE SYSTEM Calculated P Thornton 24 degrees MUSE SYSTEM Calculated R Thornton 32 degrees MUSE SYSTEM Calculated T Thornton -2 degrees MUSE SYSTEM INTERPRETATION Normal sinus rhythm Septal infarct (cited on or before 22-JUN-2023) Possible Lateral infarct , age undetermined ST & T wave abnormality, consider inferolateral ischemia Abnormal ECG When compared with ECG of 22-JUN-2023 10:55, No significant change was found Confirmed by MD Angelo Danette ([id number]) on 06/22/2023 3:56:31 PM MUSE SYSTEM 06/22/2023 11:1 3 AM EDT 06/22/2023 3:56 PM EDT Ailyn Irvin MD ECG ORDERABLES Performing Organization Address City/[facility] Co de Phone Number MUSE SYSTEM * EKG 12 Lead (06/22/2023 10:55 AM EDT) Ventricular rate 56 BPM MUSE SYSTEM Atrial Rate 56 BPM MUSE SYSTEM P-R Interval 168 ms MUSE SYSTEM QRS Duration 88 ms MUSE SYSTEM Q-T Interval 426 ms MUSE SYSTEM QTC Calculated (Bezet) 411 ms MUSE SYSTEM Calculated P Thornton 22 degrees MUSE SYSTEM Calculated R Thornton 20 degrees MUSE SYSTEM Calculated T Thornton 10 degrees MUSE SYSTEM INTERPRETATION Sinus bradycardia Septal infarct , age undetermined ST & T wave abnormality, consider inferolateral ischemia Abnormal ECG When compared with ECG of 21-JUN-2023 10:06, Septal infarct is now Present Confirmed by MD Angelo Danette ([id number]) on 06/22/2023 3:55:53 PM MUSE SYSTEM 06/22/2023 10:5 5 AM EDT 06/22/2023 3:55 PM EDT Ailyn Irvin MD ECG ORDERABLES Performing Organization Address [facility] Phone Number MUSE SYSTEM * Differential, Automated (06/22/2023 4:34 AM EDT) Neutrophil % 54.4 % [facility] Neutrophil Absolute 4.07 1.70 - 6.10 x10(3)/[facility] Lymph % 30.6 % [facility] Lymphocytes Abs 2.3 0.9 - 3.2 x10(3)/[facility] Monocyte % 9.9 % [facility] Monocyte Abs 0.7 0.3 - 0.9 x10(3)/[facility] Eos % 4.3 % [facility] Eosinophils Abs 0.3 0.0 - 0.4 x10(3)/[facility] Basophil % 0.7 % [facility] Baso Absolute 0.0 0.0 - 0.1 x10(3)/[facility] Immature Gran % 0.10 % [facility] Comment: Immature granulocytes(IG's)percentage and absolute count will include metamyelocytes, myelocytes, and promyelocytes. Blood smears from CBCs yielding IG's will be scanned manually for concordance. If this scan disagrees with the automated IG or if promyelocytes are noted, a manual differential will be performed. Immature Gran Absolute 0.01 0.00 - 0.04 x10(3)/[facility] Blood 06/22/2023 4:34 AM EDT 06/22/2023 4:42 AM EDT Narrative Resulting Agency Comment Spec In Lab Terrence Keating MD HEMATOLOGY ORDERABLE S Performing Organization Address City/State/[facility] Co de Phone Number [facility] [place] [address] * (ABNORMAL) Hemogram (06/22/2023 4:34 AM EDT) White Blood Cell 7.5 4.0 - 9.5 x10(3)/ L [facility] Red Blood Cell 4.04 4.00 - 5.21 x10(6)/ L [facility] Hemoglobin 12.8 11.7 - 15.5 g/dL [facility] Hematocrit 39.1 35.7 - 45.8 % [facility] Mean Cell Volume 96.8(H) 82.6 - 94.4 fL [facility] Mean Cell Hemoglobin 31.7 27.1 - 32.0 pg [facility] Mean Cell Hemoglobin Concentration 32.7 31.7 - 35.0 g/dL [facility] Platelet 225 145 - 357 x10(3)/ L [facility] RDW Standard Deviation 45.9 37.0 - 46.0 fL [facility] RDW coefficient of variation 13.0 11.5 - 14.1 % [facility] Mean Platelet Volume 10.6 7.6 - 12.9 fL [facility] NRBC% auto 0.0 % [facility] NRBC Absolute 0.000 0.000 - 0.000 x10(3)/mc L [facility] Blood 06/22/2023 4:34 AM EDT 06/22/2023 4:42 AM EDT Narrative Resulting Agency Comment Spec In Lab Terrence Keating MD HEMATOLOGY ORDERABLE S [facility] [place] [address] * (ABNORMAL) Basic Metabolic Panel (non-fasting) (06/22/2023 4:34 AM EDT) Glucose 94 65 - 199 mg/dL [facility] Comment:Diabetes: >=200 mg/d L plus symptoms Blood Urea Nitrogen 22(H) 8 - 18 mg/dL [facility] Creatinine 1.19 0.70 - 1.20 mg/dL [facility] Sodium 138 135 - 145 mmol/L [facility] Potassium 3.9 3.5 - 5.0 mmol/L [facility] Comment: Please note: ??Patients with WBC >100,000 may have falsely elevated Potassium levels. ??For accurate Potassium quantification in these patients send serum separator tube (gold top) for subsequent determinations. ??Contact the Clinical Chemistry Laboratory if there are any questions. Chloride 102 98 - 107 mmol/L [facility] Carbon Dioxide 19(L) 22 - 31 mmol/L [facility] Anion Gap 17(H) 5 - 15 mmol/L [facility] Calcium 9.4 8.5 - 10.5 mg/dL [facility] Est Glomerular Filtration Rate 54(L) >=60 mL/min/1. 73 m?? [facility] [...] CHEMISTRY ORDERABL ES Performing Organization Address [facility] de Phone Number [facility] [place] [address] * (ABNORMAL) Phosphorus (06/22/2023 4:34 AM EDT) Phosphorus 4.9(H) 2.5 - 4.5 mg/dL [facility] Blood 06/22/2023 4:34 AM EDT 06/22/2023 4:42 AM EDT Narrative Resulting Agency Comment Spec In Lab Eufemia Copeladn MD CHEMISTRY ORDERABL ES Performing Organization Address [facility] de Phone Number [facility] [place] [address] * Magnesium (06/22/2023 4:34 AM EDT) Magnesium 1.02 0.69 - 1.07 mmol/L [facility] Blood 06/22/2023 4:34 AM EDT 06/22/2023 4:42 AM EDT Narrative Resulting Agency Comment Spec In Lab Eufemia Copeland MD CHEMISTRY ORDERABL ES [facility] [place] [address] * CT Abdomen & Pelvis w Contrast [...] have questions please contact the health director long term care that requested your imaging first. ? Electronically signed by: RONDA DUFFY MD, [facility] ([phone]), at 06/22/2023 7:59 AM Narrative 06/22/2023 7:59 [...] who have questions please contactthe health director long term care that requested your imaging first. Eufemia Copeland MD IMG CT ORDERABLES * EKG 12 Lead (06/21/2023 10:06 AM EDT) Ventricular rate 51 BPM MUSE SYSTEM Atrial Rate 51 BPM MUSE SYSTEM P-R Interval 176 ms MUSE SYSTEM QRS Duration 92 ms MUSE SYSTEM Q-T Interval 450 ms MUSE SYSTEM QTC Calculated (Bezet) 414 ms MUSE SYSTEM Calculated P Thornton 17 degrees MUSE SYSTEM Calculated R Thornton 35 degrees MUSE SYSTEM Calculated T Thornton 13 degrees MUSE SYSTEM INTERPRETATION Sinus bradycardia [...] EDT) Troponin-T, High Sensitivity 22(H) <=14 ng/L [facility] Comment: [...] [facility] Test Catalog Reference: Fourth [place] Definition of Myocardial Infarction. Journal of the [place] [employer] 2018;72:2056-8081 Blood 06/21/2023 9:45 AM EDT 06/21/2023 10:08 AM EDT Narrative Resulting Agency Comment Spec In Lab Eufemia Copeland MD CHEMISTRY ORDERABL ES Performing Organization Address [facility]/ZIP Co de Phone Number [facility] [place] [address] * (ABNORMAL) pro-Brain Natriuretic Peptide (06/21/2023 5:58 AM EDT) NT-proBNP 1,370(H) <=124 pg/mL [facility] Blood Venous Draw / Unknown 06/21/2023 5:58 AM EDT 06/21/2023 7:28 AM EDT Narrative Resulting Agency Comment Spec In Lab Eufemia Copeland MD CHEMISTRY ORDERABL ES Performing Organization Address [facility]/ZIP Co de Phone Number [facility] [place] [address] * Potassium (06/21/2023 5:58 AM EDT) Potassium 4.0 3.5 - 5.0 mmol/L [facility] [...] CHEMISTRY ORDERABL ES Performing Organization Address City/[facility]/ZIP Co de Phone Number [facility] [place] [address] * Differential, Automated (06/21/2023 3:25 AM EDT) Neutrophil % 54.0 % [facility] Neutrophil Absolute 5.02 1.70 - 6.10 x10(3)/[facility] Lymph % 31.8 % [facility] Lymphocytes Abs 3.0 0.9 - 3.2 x10(3)/[facility] Monocyte % 8.9 % [facility] Monocyte Abs 0.8 0.3 - 0.9 x10(3)/[facility] Eos % 4.2 % [facility] Eosinophils Abs 0.4 0.0 - 0.4 x10(3)/[facility] Basophil % 0.8 % [facility] Baso Absolute 0.1 0.0 - 0.1 x10(3)/[facility] Immature Gran % 0.30 % [facility] Comment: Immature granulocytes(IG's)percentage and absolute count will include metamyelocytes, myelocytes, and promyelocytes. Blood smears from CBCs yielding IG's will be scanned manually for concordance. If this scan disagrees with the automated IG or if promyelocytes are noted, a manual differential will be performed. Immature Gran Absolute 0.03 0.00 - 0.04 x10(3)/[facility] Blood 06/21/2023 3:25 AM EDT 06/21/2023 3:45 AM EDT Narrative Resulting Agency Comment Spec In Lab Terrence Keating MD HEMATOLOGY ORDERABLE S [facility] [place] [address] * Hemogram (06/21/2023 3:25 AM EDT) [facility] White Blood Cell 9.3 4.0 - 9.5 x10(3)/[facility] Red Blood Cell 4.74 4.00 - 5.21 x10(6)/[facility] Hemoglobin 14.9 11.7 - 15.5 g/dL [facility] Hematocrit 44.2 35.7 - 45.8 % [facility] Mean Cell Volume 93.2 82.6 - 94.4 fL [facility] Mean Cell Hemoglobin 31.4 27.1 - 32.0 pg [facility] Mean Cell Hemoglobin Concentration 33.7 31.7 - 35.0 g/dL [facility] Platelet 279 145 - 357 x10(3)/[facility] RDW Standard Deviation 44.7 37.0 - 46.0 [facility] RDW coefficient of variation 13.1 11.5 - 14.1 % [facility] Mean Platelet Volume 11.1 7.6 - 12.9 [facility] NRBC% auto 0.0 % [facility] NRBC Absolute 0.000 0.000 - 0.000 x10(3)/[facility] Blood 06/21/2023 3:25 AM EDT 06/21/2023 3:45 AM EDT Narrative Resulting Agency Comment Spec In Lab Terrence Keating MD HEMATOLOGY ORDERABLE S [facility] [place] [address] * (ABNORMAL) Basic Metabolic Panel (non-fasting) (06/21/2023 3:25 AM EDT) [facility] Glucose 95 65 - 199 mg/dL [facility] Comment:Diabetes: >=200 mg/d L plus symptoms Blood Urea Nitrogen 27(H) 8 - 18 mg/dL [facility] Creatinine 1.11 0.70 - 1.20 mg/dL [facility] Sodium 138 135 - 145 mmol/L [facility] Potassium Not Perf 3.5 - 5.0 [facility] Comment: Unable to quantitate [...] questions. Chloride 100 98 - 107 mmol/L [facility] Carbon Dioxide 26 22 - 31 mmol/L [facility] Anion Gap 12 5 - 15 mmol/L [facility] Calcium 9.7 8.5 - 10.5 mg/dL [facility] Est Glomerular Filtration Rate 59(L) >=60 mL/min/1. 73 m?? [facility] [...] Lab Eufemia Copeland MD CHEMISTRY ORDERABL ES [facility] [place] [address] * (ABNORMAL) Phosphorus (06/21/2023 3:25 AM EDT) [facility] Phosphorus 5.1(H) 2.5 - 4.5 mg/dL [facility] Blood 06/21/2023 3:25 AM EDT 06/21/2023 3:45 AM EDT Narrative Resulting Agency Comment Spec In Lab Eufemia Copeland MD CHEMISTRY ORDERABL ES Performing Organization Address [facility]/ZIP Co de Phone Number [facility] [place] [address] * Magnesium (06/21/2023 3:25 AM EDT) [facility] Magnesium 1.04 0.69 - 1.07 mmol/L [facility] Blood 06/21/2023 3:25 AM EDT 06/21/2023 3:45 AM EDT Narrative Resulting Agency Comment Spec In Lab Eufemia Copeland MD CHEMISTRY ORDERABL ES Performing Organization Address City/[facility]/ZIP Co de Phone Number [facility] [place] [address] * (ABNORMAL) Differential, Automated (06/20/2023 3:32 AM EDT) [facility] Neutrophil % 52.5 % [facility] Neutrophil Absolute 5.28 1.70 - 6.10 x10(3)/mc L [facility] Lymph % 32.4 % [facility] Lymphocytes Abs 3.3(H) 0.9 - 3.2 x10(3)/mc L [facility] Monocyte % 9.7 % [facility] Monocyte Abs 1.0(H) 0.3 - 0.9 x10(3)/mc L [facility] Eos % 4.3 % [facility] Eosinophils Abs 0.4 0.0 - 0.4 x10(3)/mc L [facility] Basophil % 0.7 % [facility] Baso Absolute 0.1 0.0 - 0.1 x10(3)/[facility] Immature Gran % 0.40 % [facility] Comment: Immature granulocytes(IG's)percentage and absolute count will include metamyelocytes, myelocytes, and promyelocytes. Blood smears from CBCs yielding IG's will be scanned manually for concordance. If this scan disagrees with the automated IG or if promyelocytes are noted, a manual differential will be performed. Immature Gran Absolute 0.04 0.00 - 0.04 x10(3)/[facility] Blood 06/20/2023 3:32 AM EDT 06/20/2023 3:47 AM EDT Narrative Resulting Agency Comment Spec In Lab Terrence Keating MD HEMATOLOGY ORDERABLE S Performing Organization Address City/State/[facility] Co de Phone Number [facility] [place] [address] * (ABNORMAL) Hemogram (06/20/2023 3:32 AM EDT) White Blood Cell 10.1(H) 4.0 - 9.5 x10(3)/[facility] Red Blood Cell 4.57 4.00 - 5.21 x10(6)/[facility] Hemoglobin 14.2 11.7 - 15.5 g/dL [facility] Hematocrit 41.5 35.7 - 45.8 % [facility] Mean Cell Volume 90.8 82.6 - 94.4 fL [facility] Mean Cell Hemoglobin 31.1 27.1 - 32.0 pg [facility] Mean Cell Hemoglobin Concentration 34.2 31.7 - 35.0 g/dL [facility] Platelet 253 145 - 357 x10(3)/[facility] RDW Standard Deviation 43.7 37.0 - 46.0 fL [facility] RDW coefficient of variation 13.2 11.5 - 14.1 % [facility] Mean Platelet Volume 10.8 7.6 - 12.9 [facility] NRBC% auto 0.0 % [facility] NRBC Absolute 0.000 0.000 - 0.000 x10(3)/mc L [facility] Blood 06/20/2023 3:32 AM EDT 06/20/2023 3:47 AM EDT Narrative Resulting Agency Comment Spec In Lab Terrence Keating MD HEMATOLOGY ORDERABLE S [facility] [place] [address] * (ABNORMAL) Basic Metabolic Panel (non-fasting) (06/20/2023 3:32 AM EDT) Glucose 99 65 - 199 mg/dL [facility] Comment:Diabetes: >=200 mg/d L plus symptoms Blood Urea Nitrogen 26(H) 8 - 18 mg/dL [facility] Creatinine 1.12 0.70 - 1.20 mg/dL [facility] Sodium 137 135 - 145 mmol/L [facility] Potassium 3.7 3.5 - 5.0 mmol/L [facility] [...] - 15 mmol/L [facility] Calcium 9.4 8.5 - 10.5 mg/dL [facility] Est Glomerular Filtration Rate 58(L) >=60 mL/min/1. 73 m?? [facility] [...] MD CHEMISTRY ORDERABL ES Performing Organization Address [facility]/ZIP Co de Phone Number [facility] [place] [address] * Phosphorus (06/20/2023 3:32 AM EDT) Phosphorus 4.3 2.5 - 4.5 mg/dL [facility] Blood 06/20/2023 3:32 AM EDT 06/20/2023 3:47 AM EDT Narrative Resulting Agency Comment Spec In Lab Eufemia Copeland MD CHEMISTRY ORDERABL ES Performing Organization Address [facility]/ZIP Co de Phone Number [facility] [place] [address] * Magnesium (06/20/2023 3:32 AM EDT) Magnesium 1.00 0.69 - 1.07 mmol/L [facility] Blood 06/20/2023 3:32 AM EDT 06/20/2023 3:47 AM EDT Narrative Resulting Agency Comment Spec In Lab Eufemia Copeland MD CHEMISTRY ORDERABL ES Performing Organization Address City/[facility]/ZIP Co de Phone Number [facility] [place] [address] * Phosphorus (06/19/2023 5:26 PM EDT) Phosphorus 4.0 2.5 - 4.5 mg/dL [facility] Blood 06/19/2023 5:26 PM EDT 06/19/2023 5:32 PM EDT Narrative Resulting Agency Comment Spec In Lab Eufemia Copeland MD CHEMISTRY ORDERABL ES Performing Organization Address [facility]/ZIP Co de Phone Number [facility] [place] [address] * Magnesium (06/19/2023 5:26 PM EDT) Magnesium 0.98 0.69 - 1.07 mmol/L [facility] Blood 06/19/2023 5:26 PM EDT 06/19/2023 5:32 PM EDT Narrative Resulting Agency Comment Spec In Lab Eufemia Copeland MD CHEMISTRY ORDERABL ES Performing Organization Address City/[facility]/ZIP Co de Phone Number [facility] [place] [address] * (ABNORMAL) Basic Metabolic Panel (non-fasting) (06/19/2023 5:26 PM EDT) Glucose 105 65 - 199 mg/dL [facility] Comment:Diabetes: >=200 mg/d L plus symptoms Blood Urea Nitrogen 21(H) 8 - 18 mg/dL [facility] Creatinine 1.06 0.70 - 1.20 mg/dL [facility] Sodium 139 135 - 145 mmol/L [facility] Potassium 3.9 3.5 - 5.0 mmol/L [facility] [...] 31 mmol/L [facility] Anion Gap 14 5 - 15 mmol/L [facility] Calcium 9.5 8.5 - 10.5 mg/dL [facility] Est Glomerular Filtration Rate 62 >=60 mL/min/1. 73 m?? [facility] [...] Lab Eufemia Copeland MD CHEMISTRY ORDERABL ES [facility] [place] [address] * EKG 12 Lead (06/19/2023 4:24 AM EDT) Ventricular rate 66 BPM MUSE SYSTEM Atrial Rate 66 BPM MUSE SYSTEM P-R Interval 188 ms MUSE SYSTEM QRS Duration 92 ms MUSE SYSTEM Q-T Interval 484 ms MUSE SYSTEM QTC Calculated (Bezet) 507 ms MUSE SYSTEM Calculated P Thornton 32 degrees MUSE SYSTEM Calculated R Thornton 22 degrees MUSE SYSTEM Calculated T Thornton 47 degrees MUSE SYSTEM INTERPRETATION Normal sinus rhythm Nonspecific ST abnormality Prolonged QT Abnormal ECG When compared with ECG of 15-JUN-2023 10:50, No significant change was found Confirmed by MD CHAMPION BRUCE ([id number]) on 06/19/2023 2:42:42 PM MUSE SYSTEM 06/19/2023 4:24 AM EDT 06/19/2023 2:42 PM EDT Terrence Keating MD ECG ORDERABLES MUSE SYSTEM * (ABNORMAL) Basic Metabolic Panel (non-fasting) (06/19/2023 3:22 AM EDT) Glucose 101 65 - 199 mg/dL [facility] Comment:Diabetes: >=200 mg/d L plus symptoms Blood Urea Nitrogen 24(H) 8 - 18 mg/dL [facility] Creatinine 1.04 0.70 - 1.20 mg/dL [facility] [...] questions. Chloride 100 98 - 107 mmol/L [facility] Carbon Dioxide Not Perf 22 - 31 [facility] Comment:Add-on request. Flaca le too old to perform test. Anion Gap Unable to Calculate 5 - 15 mmol/L [facility] Calcium 9.4 8.5 - 10.5 mg/dL [facility] Est Glomerular Filtration Rate 64 >=60 mL/min/1 .73 m?? [facility] Comment: This patient's [...] CHEMISTRY ORDERABL ES Performing Organization Address City/[facility]/ZIP Co de Phone Number [facility] [place] [address] * Differential, Automated (06/19/2023 3:22 AM EDT) Neutrophil % 54.0 % [facility] Neutrophil Absolute 5.08 1.70 - 6.10 x10(3)/[facility] Lymph % 30.7 % [facility] Lymphocytes Abs 2.9 0.9 - 3.2 x10(3)/[facility] Monocyte % 10.0 % [facility] Monocyte Abs 0.9 0.3 - 0.9 x10(3)/[facility] Eos % 4.5 % [facility] Eosinophils Abs 0.4 0.0 - 0.4 x10(3)/[facility] Basophil % 0.6 % [facility] Baso Absolute 0.1 0.0 - 0.1 x10(3)/[facility] Immature Gran % 0.20 % [facility] Comment: Immature granulocytes(IG's)percentage and absolute count will include metamyelocytes, myelocytes, and promyelocytes. Blood smears from CBCs yielding IG's will be scanned manually for concordance. If this scan disagrees with the automated IG or if promyelocytes are noted, a manual differential will be performed. Immature Gran Absolute 0.02 0.00 - 0.04 x10(3)/[facility] Blood 06/19/2023 3:22 AM EDT 06/19/2023 3:47 AM EDT Narrative Resulting Agency Comment Spec In Lab Terrence Keating MD HEMATOLOGY ORDERABLE S [facility] [place] [address] * Hemogram (06/19/2023 3:22 AM EDT) White Blood Cell 9.4 4.0 - 9.5 x10(3)/[facility] Red Blood Cell 4.48 4.00 - 5.21 x10(6)/[facility] Hemoglobin 13.9 11.7 - 15.5 g/dL [facility] Hematocrit 41.7 35.7 - 45.8 % [facility] Mean Cell Volume 93.1 82.6 - 94.4 fL [facility] Mean Cell Hemoglobin 31.0 27.1 - 32.0 pg [facility] Mean Cell Hemoglobin Concentration 33.3 31.7 - 35.0 g/dL [facility] Platelet 244 145 - 357 x10(3)/[facility] RDW Standard Deviation 44.2 37.0 - 46.0 [facility]ORY RDW coefficient of variation 12.9 11.5 - 14.1 % [facility] Mean Platelet Volume 10.9 7.6 - 12.9 fL [facility] NRBC% auto 0.0 % [facility] NRBC Absolute 0.000 0.000 - 0.000 x10(3)/[facility] Blood 06/19/2023 3:22 AM EDT 06/19/2023 3:47 AM EDT Narrative Resulting Agency Comment Spec In Lab Terrence Keating MD HEMATOLOGY ORDERABLE S [facility] [place] [address] * Phosphorus (06/19/2023 3:22 AM EDT) Phosphorus 4.1 2.5 - 4.5 mg/dL [facility] Blood 06/19/2023 3:22 AM EDT 06/19/2023 3:47 AM EDT Narrative Resulting Agency Comment Spec In Lab Eufemia Copeland MD CHEMISTRY ORDERABL ES Performing Organization Address City/[facility]/ZIP Co de Phone Number [facility] [place] [address] * Magnesium (06/19/2023 3:22 AM EDT) Magnesium 1.00 0.69 - 1.07 mmol/L [facility] Blood 06/19/2023 3:22 AM EDT 06/19/2023 3:47 AM EDT Narrative Resulting Agency Comment Spec In Lab Eufemia Copeland MD CHEMISTRY ORDERABL ES Performing Organization Address [facility] Co de Phone Number [facility] [place] [address] * (ABNORMAL) Basic Metabolic Panel (non-fasting) (06/18/2023 5:17 PM EDT) Glucose 115 65 - 199 mg/dL [facility] Comment:Diabetes: >=200 mg/d L plus symptoms Blood Urea Nitrogen 22(H) 8 - 18 mg/dL [facility] Creatinine 1.12 0.70 - 1.20 mg/dL [facility] Sodium 137 135 - 145 mmol/L [facility] Potassium 4.2 3.5 - 5.0 mmol/L [facility] [...] 31 mmol/L [facility] Anion Gap 14 5 - 15 mmol/L [facility] Calcium 9.6 8.5 - 10.5 mg/dL [facility] Est Glomerular Filtration Rate 58(L) >=60 mL/min/1. 73 m?? [facility] [...] Lab Eufemia Copeland MD CHEMISTRY ORDERABL ES [facility] [place] [address] * (ABNORMAL) Basic Metabolic Panel (non-fasting) (06/18/2023 4:19 AM EDT) Glucose 96 65 - 199 mg/dL [facility] Comment:Diabetes: >=200 mg/d L plus symptoms Blood Urea Nitrogen 22(H) 8 - 18 mg/dL [facility] Creatinine 0.93 0.70 - 1.20 mg/dL [facility] Sodium 138 135 - 145 mmol/L [facility] Potassium 4.2 3.5 - 5.0 mmol/L [facility] Comment: Please note: ??Patients with WBC >100,000 may have falsely elevated Potassium levels. ??For accurate Potassium quantification in these patients send serum separator tube (gold top) for subsequent determinations. ??Contact the Clinical Chemistry Laboratory if there are any questions. Chloride 102 98 - 107 mmol/L [facility] Carbon Dioxide Not Perf - [facility] Comment:Add-on request. Samp le too old to perform test. Anion Gap Unable to Calculate 5 - 15 mmol/L [facility] Calcium 9.5 8.5 - 10.5 mg/dL [facility] Est Glomerular Filtration Rate 73 >=60 mL/min/1 .73 m?? [facility] Comment: This patient's [...] Lab Eufemia Copeland MD CHEMISTRY ORDERABL ES [facility] [place] [address] * Differential, Automated (06/18/2023 4:19 AM EDT) Neutrophil % 54.1 % [facility] Neutrophil Absolute 4.52 1.70 - 6.10 x10(3)/[facility] Lymph % 31.0 % [facility] Lymphocytes Abs 2.6 0.9 - 3.2 x10(3)/[facility] Monocyte % 9.2 % [facility] Monocyte Abs 0.8 0.3 - 0.9 x10(3)/[facility] Eos % 4.9 % [facility] Eosinophils Abs 0.4 0.0 - 0.4 x10(3)/[facility] Basophil % 0.6 % [facility] Baso Absolute 0.0 0.0 - 0.1 x10(3)/[facility] Immature Gran % 0.20 % [facility] Comment: Immature granulocytes(IG's)percentage and absolute count will include metamyelocytes, myelocytes, and promyelocytes. Blood smears from CBCs yielding IG's will be scanned manually for concordance. If this scan disagrees with the automated IG or if promyelocytes are noted, a manual differential will be performed. Immature Gran Absolute 0.02 0.00 - 0.04 x10(3)/[facility] Blood 06/18/2023 4:19 AM EDT 06/18/2023 4:40 AM EDT Narrative Resulting Agency Comment Spec In Lab Terrence Keating MD HEMATOLOGY ORDERABLE S Performing Organization Address City/State/[facility] Co de Phone Number [facility] [place] [address] * Hemogram (06/18/2023 4:19 AM EDT) White Blood Cell 8.4 4.0 - 9.5 x10(3)/[facility] Red Blood Cell 4.70 4.00 - 5.21 x10(6)/[facility] Hemoglobin 14.5 11.7 - 15.5 g/dL [facility] Hematocrit 42.8 35.7 - 45.8 % [facility] Mean Cell Volume 91.1 82.6 - 94.4 fL [facility] Mean Cell Hemoglobin 30.9 27.1 - 32.0 pg [facility] Mean Cell Hemoglobin Concentration 33.9 31.7 - 35.0 g/dL [facility] Platelet 258 145 - 357 x10(3)/[facility] RDW Standard Deviation 43.6 37.0 - 46.0 fL [facility] RDW coefficient of variation 13.0 11.5 - 14.1 % [facility] Mean Platelet Volume 10.7 7.6 - 12.9 fL [facility] NRBC% auto 0.0 % [facility] NRBC Absolute 0.000 0.000 - 0.000 x10(3)/mcL [facility] Blood 06/18/2023 4:19 AM EDT 06/18/2023 4:40 AM EDT Narrative Resulting Agency Comment Spec In Lab Terrence Keating MD HEMATOLOGY ORDERABLE S [facility] [place] [address] * Phosphorus (06/18/2023 4:19 AM EDT) Phosphorus 3.7 2.5 - 4.5 mg/dL [facility] Blood 06/18/2023 4:19 AM EDT 06/18/2023 4:40 AM EDT Narrative Resulting Agency Comment Spec In Lab Eufemia Copeland MD CHEMISTRY ORDERABL ES Performing Organization Address [facility]/ZIP Co de Phone Number [facility] [place] [address] * Magnesium (06/18/2023 4:19 AM EDT) Magnesium 1.02 0.69 - 1.07 mmol/L [facility] Blood 06/18/2023 4:19 AM EDT 06/18/2023 4:40 AM EDT Narrative Resulting Agency Comment Spec In Lab Eufemia Coepland MD CHEMISTRY ORDERABL ES Performing Organization Address [facility] Co de Phone Number [facility] [place] [address] * Phosphorus (06/17/2023 2:26 PM EDT) Phosphorus 2.8 2.5 - 4.5 mg/dL [facility] Blood 06/17/2023 2:26 PM EDT 06/17/2023 2:36 PM EDT Narrative Resulting Agency Comment Spec In Lab Eufemia Copeland MD CHEMISTRY ORDERABL ES Performing Organization Address City/[facility]/ZIP Co de Phone Number [facility] [place] [address] * Magnesium (06/17/2023 2:26 PM EDT) Magnesium 1.01 0.69 - 1.07 mmol/L [facility] Blood 06/17/2023 2:26 PM EDT 06/17/2023 2:36 PM EDT Narrative Resulting Agency Comment Spec In Lab Eufemia Copeland MD CHEMISTRY ORDERABL ES Performing Organization Address [facility] Co de Phone Number [facility] [place] [address] * (ABNORMAL) Basic Metabolic Panel (non-fasting) (06/17/2023 2:26 PM EDT) Glucose 103 65 - 199 mg/dL [facility] Comment:Diabetes: >=200 mg/d L plus symptoms Blood Urea Nitrogen 21(H) 8 - 18 mg/dL [facility] Creatinine 1.07 0.70 - 1.20 mg/dL [facility] Sodium 135 135 - 145 mmol/L [facility] Potassium 3.7 3.5 - 5.0 mmol/L [facility] Comment: Please note: ??Patients with WBC >100,000 may have falsely elevated Potassium levels. ??For accurate Potassium quantification in these patients send serum separator tube (gold top) for subsequent determinations. ??Contact the Clinical Chemistry Laboratory if there are any questions. Chloride 97(L) 98 - 107 mmol/L [facility] Carbon Dioxide 24 22 - 31 mmol/L [facility] Anion Gap 14 5 - 15 mmol/L [facility] Calcium 9.6 8.5 - 10.5 mg/dL [facility] Est Glomerular Filtration Rate 62 >=60 mL/min/1. 73 m?? [facility] [...] Lab Eufemia Copeland MD CHEMISTRY ORDERABL ES [facility] [place] [address] * XR Abdomen Flat & Upright (06/17/2023 [...] have questions please contact the health director long term care that requested your imaging first. ? Electronically signed by: Wilton Cabrera MD, [facility] ([phone]), at 06/17/2023 5:30 PM Narrative 06/17/2023 5:30 [...] who have questions please contactthe health director long term care that requested your imaging first. Electronically signed by: Wilton Cabrera MD, [facility]([phone]), at 06/17/2023 5:30 PM Eufemia Copeland MD IMG DX ORDERABLES * (ABNORMAL) Basic Metabolic Panel (non-fasting) (06/17/2023 5:01 AM EDT) Glucose 100 65 - 199 mg/dL [facility] Comment:Diabetes: >=200 mg/d L plus symptoms Blood Urea Nitrogen 24(H) 8 - 18 mg/dL [facility] Creatinine 1.03 0.70 - 1.20 mg/dL [facility] Sodium 136 135 - 145 mmol/L [facility] Potassium Not Perf 3.5 - 5.0 [facility] Comment: Unable to quantitate due to sample hemolysis. ??Sample redraw suggested. Called by: , Read back by: Olive David, Date/Time:06/17/23 05:44. Please note: ??Patients with WBC >100,000 may have falsely elevated Potassium levels. ??For accurate Potassium quantification in these patients send serum separator tube (gold top) for subsequent determinations. ??Contact the Clinical Chemistry Laboratory if there are any questions. Chloride 100 98 - 107 mmol/L [facility] Carbon Dioxide 24 22 - 31 mmol/L [facility] Anion Gap 12 5 - 15 mmol/L [facility] Calcium 9.5 8.5 - 10.5 mg/dL [facility] Est Glomerular Filtration Rate 65 >=60 mL/min/1. 73 m?? [facility] [...] In Lab Terrence Keating MD CHEMISTRY ORDERABLES [facility] [place] [address] * Differential, Automated (06/17/2023 1:11 AM EDT) Neutrophil % 54.5 % [facility] Neutrophil Absolute 5.20 1.70 - 6.10 x10(3)/mcL [facility] Lymph % 31.4 % [facility] Lymphocytes Abs 3.0 0.9 - 3.2 x10(3)/[facility] Monocyte % 9.8 % [facility] Monocyte Abs 0.9 0.3 - 0.9 x10(3)/[facility] Eos % 3.4 % [facility] Eosinophils Abs 0.3 0.0 - 0.4 x10(3)/[facility] Basophil % 0.5 % [facility] Baso Absolute 0.0 0.0 - 0.1 x10(3)/[facility] Immature Gran % 0.40 % [facility] Comment: Immature granulocytes(IG's)percentage and absolute count will include metamyelocytes, myelocytes, and promyelocytes. Blood smears from CBCs yielding IG's will be scanned manually for concordance. If this scan disagrees with the automated IG or if promyelocytes are noted, a manual differential will be performed. Immature Gran Absolute 0.04 0.00 - 0.04 x10(3)/[facility] Blood 06/17/2023 1:11 AM EDT 06/17/2023 1:16 AM EDT Narrative Resulting Agency Comment Spec In Lab Terrence Keating MD HEMATOLOGY ORDERABLE S [facility] [place] [address] * Hemogram (06/17/2023 1:11 AM EDT) White Blood Cell 9.5 4.0 - 9.5 x10(3)/[facility] Red Blood Cell 4.60 4.00 - 5.21 x10(6)/[facility] Hemoglobin 14.2 11.7 - 15.5 g/dL [facility] Hematocrit 43.0 35.7 - 45.8 % [facility] Mean Cell Volume 93.5 82.6 - 94.4 fL [facility] Mean Cell Hemoglobin 30.9 27.1 - 32.0 pg [facility] Mean Cell Hemoglobin Concentration 33.0 31.7 - 35.0 g/dL [facility] Platelet 256 145 - 357 x10(3)/[facility] RDW Standard Deviation 45.0 37.0 - 46.0 fL [facility] RDW coefficient of variation 13.2 11.5 - 14.1 % [facility] Mean Platelet Volume 10.9 7.6 - 12.9 fL [facility] NRBC% auto 0.0 % [facility] NRBC Absolute 0.000 0.000 - 0.000 x10(3)/[facility] Blood 06/17/2023 1:11 AM EDT 06/17/2023 1:16 AM EDT Narrative Resulting Agency Comment Spec In Lab Terrence Keating MD HEMATOLOGY ORDERABLE S Performing Organization Address City/[facility]/ZIP Co de Phone Number [facility] [place] [address] * Magnesium (06/17/2023 1:11 AM EDT) Magnesium 0.96 0.69 - 1.07 mmol/L [facility] Blood 06/17/2023 1:11 AM EDT 06/17/2023 1:16 AM EDT Narrative Resulting Agency Comment Spec In Lab Eufemia Copeland MD CHEMISTRY ORDERABL ES Performing Organization Address City/[facility]/ZIP Co de Phone Number [facility] [place] [address] * (ABNORMAL) Basic Metabolic Panel (non-fasting) (06/17/2023 1:11 AM EDT) Glucose 102 65 - 199 mg/dL [facility] Comment:Diabetes: >=200 mg/d L plus symptoms Blood Urea Nitrogen 24(H) 8 - 18 mg/dL [facility] Creatinine 1.08 0.70 - 1.20 mg/dL [facility] [...] questions. Chloride 100 98 - 107 mmol/L [facility] Carbon Dioxide 24 22 - 31 mmol/L [facility] Anion Gap 13 5 - 15 mmol/L [facility] Calcium 9.2 8.5 - 10.5 mg/dL [facility] Est Glomerular Filtration Rate 61 >=60 mL/min/1. 73 m?? [facility] [...] In Lab Terrence Keating MD CHEMISTRY ORDERABLES [facility] [place] [address] * (ABNORMAL) Basic Metabolic Panel (non-fasting) (06/16/2023 8:28 PM EDT) Glucose 111 65 - 199 mg/dL [facility] Comment:Diabetes: >=200 mg/d L plus symptoms Blood Urea Nitrogen 23(H) 8 - 18 mg/dL [facility] Creatinine 1.21(H) 0.70 - 1.20 mg/dL [facility] Sodium 137 135 - 145 mmol/L [facility] Potassium 4.2 3.5 - 5.0 mmol/L [facility] Comment: Please note: ??Patients with WBC >100,000 may have falsely elevated Potassium levels. ??For accurate Potassium quantification in these patients send serum separator tube (gold top) for subsequent determinations. ??Contact the Clinical Chemistry Laboratory if there are any questions. Chloride 99 98 - 107 mmol/L [facility] Carbon Dioxide 26 22 - 31 mmol/L [facility] Anion Gap 12 5 - 15 mmol/L [facility] Calcium 9.3 8.5 - 10.5 mg/dL [facility] Est Glomerular Filtration Rate 53(L) >=60 mL/min/1. 73 m?? [facility] [...] Lab Eufemia Copeland MD CHEMISTRY ORDERABL ES [facility] [place] [address] * (ABNORMAL) Basic Metabolic Panel (non-fasting) (06/16/2023 2:29 PM EDT) Glucose 175 65 - 199 mg/dL [facility] Comment:Diabetes: >=200 mg/d L plus symptoms Blood Urea Nitrogen 25(H) 8 - 18 mg/dL [facility] Creatinine 1.27(H) 0.70 - 1.20 mg/dL [facility] Sodium 135 135 - 145 mmol/L [facility] Potassium 3.9 3.5 - 5.0 mmol/L [facility] Comment: result rechecked-EL Please note: ??Patients with WBC >100,000 may have falsely elevated Potassium levels. ??For accurate Potassium quantification in these patients send serum separator tube (gold top) for subsequent determinations. ??Contact the Clinical Chemistry Laboratory if there are any questions. Chloride 96(L) 98 - 107 mmol/L [facility] Carbon Dioxide 26 22 - 31 mmol/L [facility] Anion Gap 13 5 - 15 mmol/L [facility] Calcium 9.3 8.5 - 10.5 mg/dL [facility] Est Glomerular Filtration Rate 50(L) >=60 mL/min/1. 73 m?? [facility] [...] Lab Eufemia Copeland MD CHEMISTRY ORDERABL ES [facility] [place] [address] * (ABNORMAL) Basic Metabolic Panel (non-fasting) (06/16/2023 9:01 AM EDT) Glucose 148 65 - 199 mg/dL [facility] Comment:Diabetes: >=200 mg/d L plus symptoms Blood Urea Nitrogen 27(H) 8 - 18 mg/dL [facility] Creatinine 1.27(H) 0.70 - 1.20 mg/dL [facility] Sodium 136 135 - 145 mmol/L [facility] Potassium 2.9(Criti edy) 3.5 - 5.0 mmol/L [facility] Comment: called by tmp /read back by (Malia Mcintyre)/ 06/16/23 @024 Please note: ??Patients with WBC >100,000 may have falsely elevated Potassium levels. ??For accurate Potassium quantification in these patients send serum separator tube (gold top) for subsequent determinations. ??Contact the Clinical Chemistry Laboratory if there are any questions. Chloride 91(L) 98 - 107 mmol/L [facility] Carbon Dioxide 32(H) 22 - 31 mmol/L [facility] Anion Gap 13 5 - 15 mmol/L [facility] Calcium 9.7 8.5 - 10.5 mg/dL [facility] Est Glomerular Filtration Rate 50(L) >=60 mL/min/1. 73 m?? [facility] [...] Lab Eufemia Copeland MD CHEMISTRY ORDERABL ES [facility] [place] [address] * (ABNORMAL) Magnesium (06/16/2023 3:30 AM EDT) [facility] Magnesium 1.09(H) 0.69 - 1.07 mmol/L [facility] Blood Venous Draw / Unknown 06/16/2023 3:30 AM EDT 06/16/2023 3:38 AM EDT Narrative Resulting Agency Comment Spec In Lab Eufemia Copeland MD CHEMISTRY ORDERABL ES Performing Organization Address [facility] Co de Phone Number [facility] [place] [address] * (ABNORMAL) Differential, Automated (06/16/2023 3:30 AM EDT) [facility] Neutrophil % 50.4 % [facility] Neutrophil Absolute 4.15 1.70 - 6.10 x10(3)/mc L [facility] Lymph % 33.7 % [facility] Lymphocytes Abs 2.8 0.9 - 3.2 x10(3)/mc L [facility] Monocyte % 11.8 % [facility] Monocyte Abs 1.0(H) 0.3 - 0.9 x10(3)/mc L [facility] Eos % 3.3 % [facility] Eosinophils Abs 0.3 0.0 - 0.4 x10(3)/mc L [facility] Basophil % 0.6 % [facility] Baso Absolute 0.0 0.0 - 0.1 x10(3)/mc L [facility] Immature Gran % 0.20 % [facility] Comment: Immature granulocytes(IG's)percentage and absolute count will include metamyelocytes, myelocytes, and promyelocytes. Blood smears from CBCs yielding IG's will be scanned manually for concordance. If this scan disagrees with the automated IG or if promyelocytes are noted, a manual differential will be performed. Immature Gran Absolute 0.02 0.00 - 0.04 x10(3)/mc L [facility] Blood 06/16/2023 3:30 AM EDT 06/16/2023 3:37 AM EDT Narrative Resulting Agency Comment Spec In Lab Terrence Keating MD HEMATOLOGY ORDERABLE S [facility] [place] [address] * Hemogram (06/16/2023 3:30 AM EDT) White Blood Cell 8.2 4.0 - 9.5 x10(3)/[facility] Red Blood Cell 4.69 4.00 - 5.21 x10(6)/[facility] Hemoglobin 14.5 11.7 - 15.5 g/dL [facility] Hematocrit 42.7 35.7 - 45.8 % [facility] Mean Cell Volume 91.0 82.6 - 94.4 fL [facility] Mean Cell Hemoglobin 30.9 27.1 - 32.0 pg [facility] Mean Cell Hemoglobin Concentration 34.0 31.7 - 35.0 g/dL [facility] Platelet 260 145 - 357 x10(3)/[facility] RDW Standard Deviation 43.5 37.0 - 46.0 [facility] RDW coefficient of variation 13.0 11.5 - 14.1 % [facility] Mean Platelet Volume 11.1 7.6 - 12.9 fL [facility] NRBC% auto 0.0 % [facility] NRBC Absolute 0.000 0.000 - 0.000 x10(3)/[facility] Blood 06/16/2023 3:30 AM EDT 06/16/2023 3:37 AM EDT Narrative Resulting Agency Comment Spec In Lab Terrence Keating MD HEMATOLOGY ORDERABLE S [facility] [place] [address] * (ABNORMAL) Basic Metabolic Panel (non-fasting) (06/16/2023 3:30 AM EDT) Glucose 110 65 - 199 mg/dL [facility] Comment:Diabetes: >=200 mg/d L plus symptoms Blood Urea Nitrogen 28(H) 8 - 18 mg/dL [facility] Creatinine 1.20 0.70 - 1.20 mg/dL [facility] Sodium 135 135 - 145 mmol/L [facility] Potassium 2.7(Criti edy) 3.5 - 5.0 mmol/L [facility] Comment: called by WALESKA /read back by Jolly Friedman / 06/16/23 [id number] Please note: ??Patients with WBC >100,000 may have falsely elevated Potassium levels. ??For accurate Potassium quantification in these patients send serum separator tube (gold top) for subsequent determinations. ??Contact the Clinical Chemistry Laboratory if there are any questions. Chloride 90(L) 98 - 107 mmol/L [facility] Carbon Dioxide 33(H) 22 - 31 mmol/L [facility] Anion Gap 12 5 - 15 mmol/L [facility] Calcium 9.2 8.5 - 10.5 mg/dL [facility] Est Glomerular Filtration Rate 54(L) >=60 mL/min/1. 73 m?? [facility] [...] MD CHEMISTRY ORDERABL ES Performing Organization Address [facility] Co de Phone Number [facility] [place] [address] * Heparin (unfractionated) Level (06/16/2023 3:30 AM EDT) UF Heparin 0.64 IU/mL [facility] Comment: Heparin (anti-Xa) [...] HEMATOLOGY ORDERABLE S Performing Organization Address [facility] Co de Phone Number [facility] [place] [address] * Lipid Panel (Reflex Direct LDL) (06/16/2023 3:30 AM EDT) Cholesterol, Total 190 mg/dL [facility] Comment: Desirable: ? <200 mg/dL Borderline High: 200-239 mg/dL Higher: ?>lr=941 mg/dL Triglyceride 126 mg/dL [facility] Comment: Normal: ?<150 mg/dL Borderline High: 150-199 mg/dL High: ?200-499 mg/dL Very High: ? >mm=285 mg/dL HDL Cholesterol 50 mg/dL [facility] Comment: Females: High Risk: <50 mg/dL Males: High Risk: <40 mg/dL LDL Cholesterol 115 mg/dL [facility] Comment: Desirable: ? <100 mg/dL Above Desirable: 100-129 mg/dL Borderline High: 130-159 mg/dL High: ?160-189 mg/dL Very High: ? >hy=105 mg/dL Lipid Interpretation See Note [facility] Comment: It is important to [...] ACC/AHA Guidelines (most recently Ysabel et al. [facility] 12/09/21): For individuals with atherosclerotic cardiovascular disease (ASCVD)or LDL >ed=397 mg/dL, use a high-intensity statin (40-80 mg [...] Keating MD CHEMISTRY ORDERABLES Performing Organization Address City/State/[facility] Co de Phone Number [facility] [place] [address] * (ABNORMAL) Basic Metabolic Panel (non-fasting) (06/15/2023 9:33 PM EDT) Glucose 120 65 - 199 mg/dL [facility] Comment:Diabetes: >=200 mg/d L plus symptoms Blood Urea Nitrogen 29(H) 8 - 18 mg/dL [facility] Creatinine 1.38(H) 0.70 - 1.20 mg/dL [facility] Sodium 135 135 - 145 mmol/L [facility] Potassium 3.1(L) 3.5 - 5.0 mmol/L [facility] Comment: Please note: ??Patients with WBC >100,000 may have falsely elevated Potassium levels. ??For accurate Potassium quantification in these patients send serum separator tube (gold top) for subsequent determinations. ??Contact the Clinical Chemistry Laboratory if there are any questions. Chloride 92(L) 98 - 107 mmol/L [facility] Carbon Dioxide 31 22 - 31 mmol/L [facility] Anion Gap 12 5 - 15 mmol/L [facility] Calcium 9.4 8.5 - 10.5 mg/dL [facility] Est Glomerular Filtration Rate 45(L) >=60 mL/min/1. 73 m?? [facility] [...] Lab Eufemia Copeland MD CHEMISTRY ORDERABL ES [facility] [place] [address] * Heparin (unfractionated) Level (06/15/2023 9:33 PM EDT) UF Heparin 0.63 IU/mL [facility] Comment: Heparin (anti-Xa) [...] HEMATOLOGY ORDERABLE S Performing Organization Address City/[facility]/ZIP Co de Phone Number [facility] [place] [address] * (ABNORMAL) Magnesium (06/15/2023 5:47 PM EDT) Magnesium 1.10(H) 0.69 - 1.07 mmol/L [facility] Blood Venous Draw / Unknown 06/15/2023 5:47 PM EDT 06/15/2023 6:10 PM EDT Narrative Resulting Agency Comment Spec In Lab Terrence Keating MD CHEMISTRY ORDERABLES Performing Organization Address [facility] Co de Phone Number [facility] [place] [address] * (ABNORMAL) Basic Metabolic Panel (non-fasting) (06/15/2023 5:47 PM EDT) Glucose 147 65 - 199 mg/dL [facility] Comment:Diabetes: >=200 mg/d L plus symptoms Blood Urea Nitrogen 29(H) 8 - 18 mg/dL [facility] Creatinine 1.20 0.70 - 1.20 mg/dL [facility] Sodium 134(L) 135 - 145 mmol/L [facility] Potassium 2.9(Criti edy) 3.5 - 5.0 mmol/L [facility] Comment: Called by: dm, Read back by: qamar ren, Date/Time:06/15/23 19:11. Please note: ??Patients with WBC >100,000 may have falsely elevated Potassium levels. ??For accurate Potassium quantification in these patients send serum separator tube (gold top) for subsequent determinations. ??Contact the Clinical Chemistry Laboratory if there are any questions. Chloride 89(L) 98 - 107 mmol/L [facility] Carbon Dioxide 29 22 - 31 mmol/L [facility] Anion Gap 16(H) 5 - 15 mmol/L [facility] Calcium 9.1 8.5 - 10.5 mg/dL [facility] Est Glomerular Filtration Rate 54(L) >=60 mL/min/1. 73 m?? [facility] [...] Lab Eufemia Copeland MD CHEMISTRY ORDERABL ES [facility] [place] [address] * Rapid Drug Screen w/o Confirmation, Urine (06/15/2023 4:46 PM EDT) Pathologist [facility] Barbiturates Screen, Urine None Detected None Detected [facility] Comment: The barbiturate screen detects [...] Benzodiazepines Screen, Urine None Detected None Detected [facility] Comment: The benzodiazepines screen detects [...] Cocaine Screen, Urine None Detected None Detected [facility] Comment: The cocaine metabolites screen detects benzoylecgonine (Cocaine Metabolite) at concentrations >150 ng/mL. A ? Presumptive Positive? result indicates that the screening result was positive but has not yet been confirmed by a highly-specific method. As with any screen, occasional false positive results from cross-reacting substances may occur. Not for Medico-Legal Purposes. Methadone Metabolites Screen, Urine None Detected None Detected [facility] Comment: The methadone metabolite screen detects EDDP (major methadone metabolite) at concentrations >100 ng/mL. A ? Presumptive Positive? result indicates that the screening result was positive but has not yet been confirmed by a highly-specific method. As with any screen, occasional false positive results from cross-reacting substances may occur. Not for Medico-Legal Purposes. Opiate Screen, Urine None Detected None Detected [facility] Comment: The opiates screen detects [...] Cannabinoid Screen, Urine None Detected None Detected [facility] Comment: The marijuana metabolites screen detects the THC metabolite (99-nxw-1-carboxy-delta 9-THC) at concentrations >20 ng/mL. A ? Presumptive Positive? result indicates that the screening result was positive but has not yet been confirmed by a highly-specific method. As with any screen, occasional false positive results from cross-reacting substances may occur. Not for Medico-Legal Purposes. Oxycodone Screen, Urine None Detected None Detected [facility] Comment: The oxycodone screen detects oxycodone and oxymorphone at concentrations >100 ng/mL. A ? Presumptive Positive? result indicates that the screening result was positive but has not yet been confirmed by a highly-specific method. As with any screen, occasional false positive results from cross-reacting substances may occur. Not for Medico-Legal Purposes. Buprenorphine Screen, Urine None Detected None Detected [facility] Comment: The buprenorphine screen detects [...] characteristics of this test were determined by [facility] in accordance with CLIA requirements. This laboratory is qualified under CLIA to perform high-complexity testing. Fentanyl Screen, Urine None Detected None Detected [facility] Comment: The fentanyl screen detects [...] Tricyclics Screen, Urine None Detected None Detected [facility] Comment: The tricyclics screen detects [...] characteristics of this test were determined by [facility] in accordance with CLIA requirements. This laboratory is qualified under CLIA to perform high-complexity testing. Ethanol Screen, Urine None Detected None Detected [facility] Comment:This urine ethanol a ssay detects ethanol at concentrations >/= 100 mg/L. Amphetamines Screen, Urine None Detected None Detected [facility] Comment: The amphetamine screen detects d-amphetamine and d-methamphetamine at concentrations >300 ng/mL. A ? Presumptive Positive? result indicates that the screening result was positive but has not yet been confirmed by a highly-specific method. As with any screen, occasional false positive results from cross-reacting substances may occur. Not for Medico-Legal Purposes. Creatinine Specimen Validity Test, Urine 39 >=20 mg/dL [facility] Chromate Specimen Validity Test, Urine <2.0 <=49.9 mg/L [facility] Nitrite Specimen Validity Test, Urine <50 <=499 mg/L [facility] Oxidant Specimen Validity Test, Urine 12 <=199 mg/L [facility] pH Specimen Validity Test, Urine 5.4 3.0 - 10.9 [facility] Adulterants Screen, Urine None Detected None Detected [facility] Comment:No adulteration of t his urine sample was detected. Urine 06/15/2023 4:46 PM EDT 06/15/2023 5:30 PM EDT Narrative Resulting Agency Comment Spec In Lab Eufemia Copeland MD CHEMISTRY ORDERABL ES Performing Organization Address [facility] [place] [place] [address] * Rapid Drug Screen, Urine (TEE Request) (06/15/2023 4:46 PM EDT) TEE Conf Requested No [facility] TEE Requested See Comment [facility] Comment:Refer to Rapid Drug Screen w/o Confirmation, Urine for results. Urine 06/15/2023 4:46 PM EDT 06/15/2023 5:30 PM EDT Narrative Resulting Agency Comment Spec In Lab Eufemia Copeland MD URINE ORDERABLES Performing Organization Address City/[facility]/ZIP Co de Phone Number [facility] [place] [address] * (ABNORMAL) Basic Metabolic Panel (non-fasting) (06/15/2023 2:29 PM EDT) Glucose 141 65 - 199 mg/dL [facility] Comment:Diabetes: >=200 mg/d L plus symptoms Blood Urea Nitrogen 31(H) 8 - 18 mg/dL [facility] Creatinine 1.21(H) 0.70 - 1.20 mg/dL [facility] Sodium 132(L) 135 - 145 mmol/L [facility] Potassium 3.0(Criti edy) 3.5 - 5.0 mmol/L [facility] Comment: Called by: richard, Read back by: qamar ren, Date/Time:06/15/23 15:18. Please note: ??Patients with WBC >100,000 may have falsely elevated Potassium levels. ??For accurate Potassium quantification in these patients send serum separator tube (gold top) for subsequent determinations. ??Contact the Clinical Chemistry Laboratory if there are any questions. Chloride 89(L) 98 - 107 mmol/L [facility] Carbon Dioxide 32(H) 22 - 31 mmol/L [facility] Anion Gap 11 5 - 15 mmol/L [facility] Calcium 9.6 8.5 - 10.5 mg/dL [facility] Est Glomerular Filtration Rate 53(L) >=60 mL/min/1. 73 m?? [facility] [...] MD CHEMISTRY ORDERABL ES Performing Organization Address [facility] Co de Phone Number [facility] [place] [address] * Heparin (unfractionated) Level (06/15/2023 2:29 PM EDT) Pathologist [facility] UF Heparin 0.93 IU/mL [facility] Comment: Heparin (anti-Xa) [...] HEMATOLOGY ORDERABLE S Performing Organization Address [facility] Co de Phone Number [facility] [place] [address] * EKG 12 Lead (06/15/2023 10:50 AM EDT) Ventricular rate 55 BPM MUSE SYSTEM Atrial Rate 55 BPM MUSE SYSTEM P-R Interval 184 ms MUSE SYSTEM QRS Duration 96 ms MUSE SYSTEM Q-T Interval 590 ms MUSE SYSTEM QTC Calculated (Bezet) 565 ms MUSE SYSTEM Calculated P Thornton 54 degrees MUSE SYSTEM Calculated R Thornton 54 degrees MUSE SYSTEM Calculated T Thornton 13 degrees MUSE SYSTEM INTERPRETATION Sinus bradycardia with sinus arrhythmia Marked ST abnormality, possible inferior subendocardial injury Long QT interval Abnormal ECG When compared with ECG of 15-JUN-2023 02:17, Nonspecific T wave abnormality has replaced inverted T waves in Lateral leads Confirmed by Kai Haider ([id number]) on 06/16/2023 3:52:04 PM MUSE SYSTEM 06/15/2023 10:5 0 AM EDT 06/16/2023 3:52 PM EDT Terrence Keating MD ECG ORDERABLES MUSE SYSTEM * (ABNORMAL) Basic Metabolic Panel (non-fasting) (06/15/2023 8:18 AM EDT) Glucose 113 65 - 199 mg/dL [facility] Comment:Diabetes: >=200 mg/d L plus symptoms Blood Urea Nitrogen 29(H) 8 - 18 mg/dL [facility] Creatinine 1.22(H) 0.70 - 1.20 mg/dL [facility] Sodium 134(L) 135 - 145 mmol/L [facility] Potassium 2.5(Criti edy) 3.5 - 5.0 mmol/L [facility] Comment: Called by: cheryl, Read back by: eamon mckeon, Date/Time:06/15/23 09:34. Please note: ??Patients with WBC >100,000 may have falsely elevated Potassium levels. ??For accurate Potassium quantification in these patients send serum separator tube (gold top) for subsequent determinations. ??Contact the Clinical Chemistry Laboratory if there are any questions. Chloride 89(L) 98 - 107 mmol/L [facility] Carbon Dioxide 30 22 - 31 mmol/L [facility] Anion Gap 15 5 - 15 mmol/L [facility] Calcium 10.0 8.5 - 10.5 mg/dL [facility] Est Glomerular Filtration Rate 53(L) >=60 mL/min/1. 73 m?? [facility] [...] MD CHEMISTRY ORDERABL ES Performing Organization Address [facility]/ZIP Co de Phone Number [facility] [place] [address] * Heparin (unfractionated) Level (06/15/2023 8:18 AM EDT) UF Heparin 0.70 IU/mL [facility] Comment: Heparin (anti-Xa) [...] HEMATOLOGY ORDERABLE S Performing Organization Address [facility]/ZIP Co de Phone Number [facility] [place] [address] * (ABNORMAL) Troponin (06/15/2023 8:18 AM EDT) Troponin-T, High Sensitivity 33(H) <=14 ng/L [facility] Comment: [...] [facility] Test Catalog Reference: Fourth [place] Definition of Myocardial Infarction. Journal of the [place] [employer] 2018;72:3084-0753 Blood 06/15/2023 8:18 AM EDT 06/15/2023 8:34 AM EDT Narrative Resulting Agency Comment Spec In Lab Terrence Keating MD CHEMISTRY ORDERABLES [facility] [place] [address] * Differential, Automated (06/15/2023 4:28 AM EDT) Neutrophil % 48.0 % [facility] Neutrophil Absolute 3.20 1.70 - 6.10 x10(3)/[facility] Lymph % 35.8 % [facility] Lymphocytes Abs 2.4 0.9 - 3.2 x10(3)/[facility] Monocyte % 11.4 % [facility] Monocyte Abs 0.8 0.3 - 0.9 x10(3)/[facility] Eos % 3.7 % [facility] Eosinophils Abs 0.2 0.0 - 0.4 x10(3)/[facility] Basophil % 1.0 % [facility] Baso Absolute 0.1 0.0 - 0.1 x10(3)/[facility] Immature Gran % 0.10 % [facility] Comment: Immature granulocytes(IG's)percentage and absolute count will include metamyelocytes, myelocytes, and promyelocytes. Blood smears from CBCs yielding IG's will be scanned manually for concordance. If this scan disagrees with the automated IG or if promyelocytes are noted, a manual differential will be performed. Immature Gran Absolute 0.01 0.00 - 0.04 x10(3)/[facility] Blood 06/15/2023 4:28 AM EDT 06/15/2023 4:37 AM EDT Narrative Resulting Agency Comment Spec In Lab Terrence Keating MD HEMATOLOGY ORDERABLE S [facility] [place] [address] * (ABNORMAL) Hemogram (06/15/2023 4:28 AM EDT) White Blood Cell 6.7 4.0 - 9.5 x10(3)/mc L [facility] Red Blood Cell 5.09 4.00 - 5.21 x10(6)/mc L [facility] Hemoglobin 16.1(H) 11.7 - 15.5 g/dL [facility] Hematocrit 48.2(H) 35.7 - 45.8 % [facility] Mean Cell Volume 94.7(H) 82.6 - 94.4 fL [facility] Mean Cell Hemoglobin 31.6 27.1 - 32.0 pg [facility] Mean Cell Hemoglobin Concentration 33.4 31.7 - 35.0 g/dL [facility] Platelet 253 145 - 357 x10(3)/mc L [facility] RDW Standard Deviation 45.5 37.0 - 46.0 fL [facility] RDW coefficient of variation 13.0 11.5 - 14.1 % [facility] Mean Platelet Volume 10.6 7.6 - 12.9 fL [facility] NRBC% auto 0.0 % [facility] NRBC Absolute 0.000 0.000 - 0.000 x10(3)/mc L [facility] Blood 06/15/2023 4:28 AM EDT 06/15/2023 4:37 AM EDT Narrative Resulting Agency Comment Spec In Lab Terrence Keating MD HEMATOLOGY ORDERABLE S Performing Organization Address City/State/[facility] Co de Phone Number [facility] [place] [address] * (ABNORMAL) Troponin (06/15/2023 4:28 AM EDT) Troponin-T, High Sensitivity 34(H) <=14 ng/L [facility] Comment: [...] [facility] Test Catalog Reference: Fourth [place] Definition of Myocardial Infarction. Journal of the [place] [employer] 2018;72:[id number] Blood 06/15/2023 4:28 AM EDT 06/15/2023 4:37 AM EDT Narrative Resulting Agency Comment Spec In Lab Terrence Keating MD CHEMISTRY ORDERABLES Performing Organization Address [facility] Co de Phone Number [facility] [place] [address] * (ABNORMAL) Prothrombin Time (06/15/2023 4:28 AM EDT) Prothrombin Time 12.7(H) 9.4 - 12.5 sec [facility] International Normalization Ratio 1.1 [facility] Comment: An INR <2.0 [...] HEMATOLOGY ORDERABLE S Performing Organization Address [facility] Co de Phone Number [facility] [place] [address] * (ABNORMAL) Hepatic Function Panel (06/15/2023 4:28 AM EDT) Protein, Total 7.5 6.1 - 8.0 g/dL [facility] Albumin 4.3 3.2 - 5.2 g/dL [facility] Aspartate Aminotransferase 32(H) 0 - 30 unit/L [facility] Alanine Aminotransferase 26 0 - 30 unit/L [facility] Alkaline Phosphatase 70 35 - 105 unit/L [facility] Bilirubin, Total 0.8 0.2 - 1.3 mg/dL [facility] Bilirubin, Direct 0.1 0.0 - 0.3 mg/dL [facility] Blood 06/15/2023 4:28 AM EDT 06/15/2023 4:37 AM EDT Narrative Resulting Agency Comment Spec In Lab Terrence Keating MD CHEMISTRY ORDERABLES Performing Organization Address City/[facility]/ZIP Co de Phone Number [facility] [place] [address] * (ABNORMAL) pro-Brain Natriuretic Peptide (06/15/2023 4:28 AM EDT) NT-proBNP 1,953(H) <=124 pg/mL [facility] Blood 06/15/2023 4:28 AM EDT 06/15/2023 4:37 AM EDT Narrative Resulting Agency Comment Spec In Lab Terrence Keating MD CHEMISTRY ORDERABLES Performing Organization Address [facility]/ZIP Co de Phone Number [facility] [place] [address] * TSH (06/15/2023 4:28 AM EDT) Thyroid Stimulating Hormone 2.98 0.27 - 4.20 mcIU/mL [facility] Comment: Reference Interval (mcIU/mL): Females: ??First Trimester: 0.23-3.88 ??Second Trimester: 0.22-3.90 ??Third Trimester: 0.44-4.66 Blood 06/15/2023 4:28 AM EDT 06/15/2023 4:37 AM EDT Narrative Resulting Agency Comment Spec In Lab Terrence Keating MD CHEMISTRY ORDERABLES [facility] [place] [address] * Phosphorus (06/15/2023 4:28 AM EDT) Phosphorus 4.4 2.5 - 4.5 mg/dL [facility] Blood 06/15/2023 4:28 AM EDT 06/15/2023 4:37 AM EDT Narrative Resulting Agency Comment Spec In Lab Terrence Keating MD CHEMISTRY ORDERABLES Performing Organization Address City/[facility] Co de Phone Number [facility] [place] [address] * (ABNORMAL) Magnesium (06/15/2023 4:28 AM EDT) Magnesium 1.22(H) 0.69 - 1.07 mmol/L [facility] Blood 06/15/2023 4:28 AM EDT 06/15/2023 4:37 AM EDT Narrative Resulting Agency Comment Spec In Lab Terrence Keating MD CHEMISTRY ORDERABLES Performing Organization Address [facility]/ZIP Co de Phone Number [facility] [place] [address] * Calcium (06/15/2023 4:28 AM EDT) Calcium 9.7 8.5 - 10.5 mg/dL [facility] Blood 06/15/2023 4:28 AM EDT 06/15/2023 4:37 AM EDT Narrative Resulting Agency Comment Spec In Lab Terrence Keating MD CHEMISTRY ORDERABLES Performing Organization Address [facility] Co de Phone Number [facility] [place] [address] * (ABNORMAL) Basic Metabolic Panel (non-fasting) (06/15/2023 4:28 AM EDT) Glucose 112 65 - 199 mg/dL [facility] Comment:Diabetes: >=200 mg/d L plus symptoms Blood Urea Nitrogen 30(H) 8 - 18 mg/dL [facility] Creatinine 1.24(H) 0.70 - 1.20 mg/dL [facility] Sodium 134(L) 135 - 145 mmol/L [facility] Potassium 2.7(Criti edy) 3.5 - 5.0 mmol/L [facility] Comment: Called by: , Read back by: Olive Hernandez, Date/Time:06/15/23 05:16. Please note: ??Patients with WBC >100,000 may have falsely elevated Potassium levels. ??For accurate Potassium quantification in these patients send serum separator tube (gold top) for subsequent determinations. ??Contact the Clinical Chemistry Laboratory if there are any questions. Chloride 90(L) 98 - 107 mmol/L [facility] Carbon Dioxide 28 22 - 31 mmol/L [facility] Anion Gap 16(H) 5 - 15 mmol/L [facility] Calcium 9.7 8.5 - 10.5 mg/dL [facility] Est Glomerular Filtration Rate 52(L) >=60 mL/min/1. 73 m?? [facility] [...] In Lab Terrence Keating MD CHEMISTRY ORDERABLES [facility] [place] [address] * EKG 12 Lead (06/15/2023 2:17 AM EDT) Ventricular rate 57 BPM MUSE SYSTEM Atrial Rate 57 BPM MUSE SYSTEM P-R Interval 200 ms MUSE SYSTEM QRS Duration 94 ms MUSE SYSTEM Q-T Interval 606 ms MUSE SYSTEM QTC Calculated (Bezet) 591 ms MUSE SYSTEM Calculated P Thornton 66 degrees MUSE SYSTEM Calculated R Thornton 74 degrees MUSE SYSTEM Calculated T Thornton -33 degrees MUSE SYSTEM INTERPRETATION Sinus bradycardia Possible Lateral infarct (cited on or before 17-APR-2023) Marked ST abnormality, possible inferior subendocardial injury Prolonged QTc Abnormal ECG When compared with ECG of 20-APR-2023 10:23, Nonspecific T wave changes QT has lengthened Confirmed by fellow MD Hansa, Sindhu ([id number]) on 06/15/2023 4:36:19 PM Confirmed by MD Angelo Danette ([id number]) on 06/15/2023 4:51:21 PM MUSE SYSTEM 06/15/2023 [...] on 06/20/23 at 0900, Last dose on Wed06/20/23 at [...] mg, Oral, Every Morning, First dose on Wed06/15/23 at 0900, Until [...] 1 tablet 1 tablet, Oral, ONCE, On Wed06/27/23 at 1245, 1 dose, Maximum dose of [...] - Reason: Transfer to a Procedural area)1548 ([facility] Unhold - Provider: Admin Adt) 0855 (Given - Provider: Heidy Paris, ERWIN) 0930 (Given - Provider: Heidy Paris RN) DULoxetine DR (Cymbalta) capsule 60 mg 60 mg, Oral, DAILY, First dose on Wed06/15/23 at 0900, Until Discontinued, Routine 0853 (Given - Provider: Heidy Paris RN)1332 ([facility] Hold - Provider: Admin Adt - Reason: Transfer to a Procedural area)1548 ([facility] Unhold - Provider: Admin Adt) 0856 (Given - Provider: Heidy Paris RN) 0931 (Given - Provider: Heidy Paris RN) gabapentin (Neurontin) capsule 600 mg 600 mg, Oral, NIGHTLY, First dose on Wed06/15/23 at 0200, Until Discontinued, Routine 1332 ([facility] Hold - Provider: Admin Adt - Reason: Transfer to a Procedural area)1548 ([facility] Unhold - Provider: Admin Adt)2136 (Given [...] Heidy Paris RN - Reason: Patient/family refused)1332 ([facility] Hold - Provider: Admin Adt - Reason: Transfer to a Procedural area)1548 ([facility] Unhold - Provider: Admin Adt) 1000 (Not Given - Provider: Heidy Paris RN - Reason: Patient/family refused) 1000 (Not Given - Provider: Heidy Paris RN - Reason: Patient/family refused) melatonin tablet 6 mg 6 mg, Oral, NIGHTLY, First dose on Wed06/15/23 at 0200, Until Discontinued 1332 ([facility] Hold - Provider: Admin Adt - Reason: Transfer to a Procedural area)1548 ([facility] Unhold - Provider: Admin Adt)2136 (Given - Provider: Lorena Torres RN) 2116 (Given - Provider: Machelle Busch RN) metoprolol succinate XL (Toprol-XL) tablet 12.5 mg 12.5 mg, Oral, DAILY, First dose on Wed06/21/23 at 0900, Until Discontinued, DO NOT CRUSH OR OPEN Hold for HR <55 and Sbp <90, Routine 0854 (Given - Provider: Heidy Paris RN)1332 ([facility] Hold - Provider: Admin Adt - Reason: Transfer to a Procedural area)1548 ([facility] Unhold - Provider: Admin Adt) 0900 (Not Given - Provider: Heidy Paris RN - Reason: Order parameters not met) 0930 (Given - Provider: Heidy Paris RN) pantoprazole EC (Protonix) tablet 40 mg 40 mg, Oral, DAILY, First dose on Wed06/15/23 at 0900, Until Discontinued 0854 (Given - Provider: Heidy Paris RN)1332 ([facility] Hold - Provider: Admin Adt - Reason: Transfer to a Procedural area)1548 ([facility] Unhold - Provider: Admin Adt) 0856 [...] Heidy Paris RN - Reason: Patient/family refused)1332 ([facility] Hold - Provider: Admin Adt - Reason: Transfer to a Procedural area)1548 ([facility] Unhold - Provider: Admin Adt) 0900 (Not [...] 0853 (Given - Provider: Heidy Paris RN)1332 ([facility] Hold - Provider: Admin Adt - Reason: Transfer to a Procedural area)1548 ([facility] Unhold - Provider: Admin Adt)2136 (Given [...] Heidy Paris RN - Reason: Patient/family refused)1332 ([facility] Hold - Provider: Admin Adt - Reason: Transfer to a Procedural area)1548 ([facility] Unhold - Provider: Admin Adt) 1000 (Not Given - Provider: Heidy Paris RN - Reason: Patient/family refused) rOPINIRole (Requip) tablet 2 mg 2 mg, Oral, 2 TIMES DAILY, First dose on Wed06/15/23 at 0245, Until Discontinued, Routine 0853 (Given - Provider: Heidy Paris RN)1332 ([facility] Hold - Provider: Admin Adt - Reason: Transfer to a Procedural area)1548 ([facility] Unhold - Provider: Admin Adt)2137 (Given [...] Heidy Paris RN - Reason: Patient/family refused)1332 ([facility] Hold - Provider: Admin Adt - Reason: Transfer to a Procedural area)1548 ([facility] Unhold - Provider: Admin Adt)2100 (Not [...] 0859 (Given - Provider: Heidy Paris RN)1332 ([facility] Hold - Provider: Admin Adt - Reason: Transfer to a Procedural area)1548 ([facility] Unhold - Provider: Admin Adt)2100 (Not [...] Paris, ERWIN) 0931 (Given - Provider: Heidy Paris, ERWIN) [...] ordered pain medications are indicated., Routine 1332 ([facility] Hold - Provider: Admin Adt - Reason: Transfer to a Procedural area)1548 ([facility] Unhold - Provider: Admin Adt) albuteroL (Proventil, Ventolin) (2.5 mg/3 mL) (0.083 %) nebulizer solution 2.5 mg 2.5 mg, Nebulization, EVERY 4 HOURS PRN, Starting on Wed07/04/23 at 0857, Until Wed07/09/23 at 1844, Wheezing, Routine 1332 ([facility] Hold - Provider: Admin Adt - Reason: Transfer to a Procedural area)1548 ([facility] Unhold - Provider: Admin Adt) lidocaine (Xylocaine) 1% (10 mg/mL) injection 3 mg 3 mg (0.3 mL), Subcutaneous, ONCE PRN, 1 dose, Starting on Wed06/15/23 at 0146, Until Wed07/09/23 at 1844, for discomfort with PIV insertion, Routine 1332 ([facility] Hold - Provider: Admin Adt - Reason: Transfer to a Procedural area)1548 ([facility] Unhold - Provider: Admin Adt) loratadine (Claritin) tablet 10 mg 10 mg, Oral, DAILY PRN, Starting on Wed06/15/23 at 0146, Until Wed07/09/23 at 1844, allergies, Routine 1332 ([facility] Hold - Provider: Admin Adt - Reason: Transfer to a Procedural area)1548 ([facility] Unhold - Provider: Admin Adt) nitroGLYcerin (Nitrostat) disintegrating tablet 0.4 mg 0.4 mg, Sublingual, EVERY 5 MIN PRN, Starting on Wed06/22/23 at 1119, Until Wed07/09/23 at 1844, Chest pain, SL nitroglycerin may be repeated every 5 minutes as needed up to 3 doses, Routine 1332 ([facility] Hold - Provider: Admin Adt - Reason: Transfer to a Procedural area)1548 ([facility] Unhold - Provider: Admin Adt) 0951 (Given - Provider: Heidy Paris, ERWIN) ondansetron (pf) (Zofran) (2 mg/mL) injection 4 mg 4 mg, Intravenous, EVERY 8 HOURS PRN, Starting on Wed06/29/23 at 1449, Until Wed07/09/23 at 1844, Nausea 1332 ([facility] Hold - Provider: Admin Adt - Reason: Transfer to a Procedural area)1548 ([facility] Unhold - Provider: Admin Adt)2137 (Given [...] from all sources in 24 hours. 1332 ([facility] Hold - Provider: Admin Adt - Reason: Transfer to a Procedural area)1548 ([facility] Unhold - Provider: Admin Adt)2137 (Given - Provider: Lorena Torres, ERWIN) 0855 (Given - Provider: Heidy Paris RN)2120 (Given - Provider: Machelle Busch RN) simethicone (Gas-X Chew) 80 mg chewable tablet 80 mg 80 mg, Oral, EVERY 6 HOURS PRN, Starting on Wed06/20/23 at 0941, Until Wed07/09/23 at 1844, Cramping, Routine 1332 ([facility] Hold - Provider: Admin Adt - Reason: Transfer to a Procedural area)1548 ([facility] Unhold - Provider: Admin Adt) 1344 [...] provided on this medication record., Routine 1332 ([facility] Hold - Provider: Admin Adt - Reason: Transfer to a Procedural area)1548 ([facility] Unhold - Provider: Admin Adt) Linked [...] Routine documented in this encounter Care Teams Auto Body Mechanic Apprentice Relationship Specialty Start Date End Date Polo Pearce PA [address] [place] [address] PCP - General Internal Medicine 06/09/21 documented as of this encounter
--- OUTSIDE RECORDS SUMMARY | 2024-04-10 17:05 | XMS_ITS | Encounter Summary ---
[place] [address] Care Team Providers Care Glazier Apprentice Name Role Phone Polo Pearce Primary Care Provider [phone] Reason for Visit * Auth/Cert (Routine) Specialty Diagnoses / Procedures Referred By Contac t Referred To Contact Diagnoses NSTEMI (non-ST elevated myocardial infarction) NSTEMI Procedures ER Lloyd Pantoja MD [facility] [place] [address] [facility] Referral ID Status Reason Start Date Expiration Date Visits Re quested Visits Authorized [id number] 1 1 Encounter Details Date Type Department Care Team (Late st Contact Info) Description 07/07/2023 2:05 PM EDT Anesthesia [place] [address] Constantine Velez MD [facility] [place] [address] Anesthesia Record Procedure Summary Procedure Name Responsible [...] In the past 12 months has e [employer], gas, oil, or water [employer] threatened to shut off services in your [...] Procedure Summary Date: 07/07/23 Room / Location: [facility] END[facility] 5 / [facility] Anesthesia Start: 1405 Anesthesia Stop: 151 Procedures: EGD WITH BIOPSY (WRVU 2.39) (Trunk) COLONOSCOPY FLEXIBLE, WITH BX (WRVU 3.56) (Trunk) Diagnosis: (post prandial pain) Surgeons: Lashonda Villa MD Responsible Provider: Constantine Velez MD Anesthesia Type: general ASA Status: 4 All Anesthesia Providers: Anesthesiologist: Constantine Velez MD SENIOR BI DEVELOPER: Darío Barlow CRNA Family Consultant: Lawrence Lopez MD Vitals Value Taken Time BP 96/51 07/07/23 1530 Temp Pulse Resp SpO2 100 % 07/07/23 1537 Pain Level 1 07/07/23 1510 Vitals shown include unfiled device data. Patient Location: PACU/[facility] Level of Consciousness: Awake and Alert [...] 3:00 PM EDT Office [place] [address] [place] [address] documented as of this encounter Visit Diagnoses [...] mg documented in this encounter Care Teams Glazier Apprentice Relationship Specialty Start Date End Date Polo Pearce PA [address] [place] [address] PCP - General Internal Medicine 06/09/21 documented as of this encounter
--- OUTSIDE RECORDS SUMMARY | 2024-04-10 17:07 | XMS_ITS | Encounter Summary ---
Author Organization [facility] [place] [address] Care Team Providers Care Divinity Professor Name Role Phone Polo Pearce Primary Care Provider [phone] Encounter Details Date Type Department Care Team (Late st Contact Info) Description 05/28/2023 Telephone Cardiology at [address] [address] Jaspreet Kinsey MD [facility] [place] [address] Social History Tobacco Use Types Packs/Day Years Used Date Smoking Tobacco: Never Smokeless Tobacco: Never Alcohol Use Standard Drinks/Week Comments Never 0 (1 standard drink = 0.6 oz pur e alcohol) [facility] Utilities Answer Date Recorded In the past 12 months has e [employer], gas, oil, or water [employer] threatened to shut off services in your [...] has gone up. Please call her @ [phone] * Telephone Encounter - Nilda Mayes RN - 06/04/2023 9:41 AM EDT Next office visit is scheduled Date Visit Type Department Provider 09/22/2023 3:00 PM FOLLOW UP VISIT Cardiology at [place] Arrive at: [facility] [address] Kinsey * Telephone Encounter - Aide Glass - 05/28/2023 10:53 AM EDT Patient had labs done recently. She would like to know what Dr Kinsey thinks about them and what if anything she should be doing. Please call her @ [phone] . documented in this encounter Plan of Treatment Upcoming Encounters Date Type Department Care Team (Late st Contact Info) Description 07/19/2024 3:00 PM EDT Office [place] [address] [place] [address] documented as of this encounter Visit Diagnoses Not on filedocumented in this encounter Care Teams Divinity Professor Relationship Specialty Start Date End Date Polo Pearce PA [address] [place] [address] PCP - General Internal Medicine 06/09/21 documented as of this encounter
--- OUTSIDE RECORDS SUMMARY | 2024-04-10 17:07 | XMS_ITS | Encounter Summary ---
[place] [address] Care Team Providers Care Home Health Billing Specialist Name Role Phone Polo Pearce Primary Care Provider [phone] Reason for Referral * Diagnostic Test (Routine) - Closed Specialty Diagnoses / Procedures Referred By Jayant t Referred To Contact Diagnoses Mesenteric ischemia Procedures Duplex Study Visceral Arteries, Comp Mamie Marx DIRECTOR OF FIELD SERVICE [facility] [place] [address] [facility] Vascular Lab [address] [place] [phone] Referral ID Status Reason Start Date Expiration Date V isits Requested Visits Authorized [id number] Closed Specialty Service Requested 06/28/2023 06/27/2024 1 1 Encounter Details Date Type Department Care Team (Late st Contact Info) Description 06/28/2023 Orders Only Vascular Surgery at [address] [phone] Mamie Marx APRN [facility] [place] [address] Mesenteric ischemia Social History Tobacco Use Types [...] in a fci (including now)? No 06/15/2023 IPV Inpatient Questions [...] 3:00 PM EDT Office Visit [place] [address] [place] [address] documented as of this encounter Results * Duplex Study Visceral Arteries, Comp (08/03/2023 8:36 AM EDT) VB Text Report Department: Vascular Surgery Lab Patient: [id number] (LOIDA ROQUE) CPT: 42676 Referring Physician: MAMIE MARX ?? Phone: Indications: S/p SMA stenting (07/01) one month f/u, ? patency Findings: Unilateral ? Waveform ? PSV cm/s ??EDV cm/s ??Patent ?? Dary Visceral Aorta ? 71 ?14 ? Celiac Artery, Proximal ??Loving-Biphasic ? 100 ?22 ? Celiac Artery, Mid ? Loving-Biphasic ?99 ?19 ? Celiac Artery, Distal ?Loving-Biphasic ?94 ?18 ? Sup Mes Artery Proximal [...] Therefore, the current interpretation is based on shawnee artery thresholds. Previous Celiac/Mesenteric Studies: Date ? [...] intestine documented in this encounter Care Teams Home Health Billing Specialist Relationship Specialty Start Date End Date Polo Pearce PA [address] [place] [address] PCP - General Internal Medicine 06/09/21 documented as of this encounter
--- OUTSIDE RECORDS SUMMARY | 2024-04-10 17:07 | XMS_ITS | Encounter Summary ---
Author Organization [facility] [address] Care Team Providers Care Canvas Worker Apprentice Name Role Phone Polo Pearce Primary Care Provider [phone] Encounter Details Date Type Department Care Team (Late st Contact Info) Description 06/14/2023 Telephone Cardiology at [address] [address] Sarah Kahn, PAYROLL SERVICES ANALYST [facility] [place] [address] Social History Tobacco Use Types Packs/Day Years Used Date Smoking Tobacco: Never Smokeless Tobacco: Never Alcohol Use Standard Drinks/Week Comments Never 0 (1 standard drink = 0.6 oz pur e alcohol) [facility] Utilities Answer Date Recorded In the past 12 months has e [employer], gas, oil, or water [employer] threatened to shut off services in your [...] AM Referring Provider: Dr. Iyer Patient Location: [facility] Past Medical History: Mild, nonobstructive CAD, s/p [facility] 04/2023 for similar presentation SVT s/p [...] showed no evidence of inflammation/sarcoid. Troponin at [facility] at the time of her [...] or examined this patient. Sarah Kahn, MICHELL, BANKING CONSULTANT-BC, PAYROLL SERVICES ANALYST [facility] Cardiovascular Medicine documented in this encounter Plan of Treatment Upcoming Encounters Date Type Department Care Team (Late st Contact Info) Description 07/19/2024 3:00 PM EDT Office [place] [address] [place] [address] documented as of this encounter Visit Diagnoses Not on filedocumented in this encounter Care Teams Canvas Worker Apprentice Relationship Specialty Start Date End Date Polo Pearce PA [address] [facility] [address] [place] [address] PCP - General Internal Medicine 06/09/21 documented as of this encounter
--- OUTSIDE RECORDS SUMMARY | 2024-04-10 17:07 | XMS_ITS | Encounter Summary ---
Author Organization [facility] Address [facility] [place] [address] Care Team Providers Care Market Garden Worker Name Role Phone Polo Pearce Primary Care Provider [phone] Reason for Referral * Consultation (Routine) - Closed Specialty Diagnoses / Procedures Referred By Contac t Referred To Contact Cardiology Diagnoses Heart failure with preserved ejection fraction, unspecified HF chronicity [place]. thorough evaluation performed to date. Jaspreet Kinsey MD [facility] [address] Porsha Mcdaniels MD [facility] [place] [address] Referral ID Status Reason Start Date Expiration Date V isits Requested Visits Authorized [id number] Closed Consult, Test & Treat 06/09/2023 06/08/2024 1 1 Encounter Details Date Type Department Care Team (Late st Contact Info) Description 06/09/2023 Telephone Cardiology at [address] [phone] Jaspreet Kinsey MD [facility] [place] [address] Social History Tobacco Use Types [...] take PRN weight gain to the pharmacy. Michelleo placed referral to cardiology at [facility] for further evaluation of what is termed [...] 3:00 PM EDT Office [place] [address] [place] [address] Scheduled Referrals Name Type Priority Associated Diagnoses Orde r Schedule Referral to Cardiology Outpatient Referral Routine Heart failure with preserved ejection fraction, unspecified HF chronicity Ordered: 06/09/2023 documented as of this encounter Visit Diagnoses Diagnosis Heart failure with preserved ejection fraction, unspecified HF chronicity documented in this encounter Care Teams Market Garden Worker Relationship Specialty Start Date End Date Polo Pearce PA [address] [facility] 1 [place] [address] PCP - General Internal Medicine 06/09/21 documented as of this encounter
--- OUTSIDE RECORDS SUMMARY | 2024-04-10 17:07 | XMS_ITS | Encounter Summary ---
Author [place] [address] Care Team Providers Care Environmental Science Instructor Name Role Phone Polo Pearce Primary Care Provider [phone] Reason for Visit * Auth/Cert (Routine) Specialty Diagnoses / Procedures Referred By Contjulita t Referred To Contact Diagnoses NSTEMI (non-ST elevated myocardial infarction) NSTEMI Procedures ER Lloyd Pantoja MD [facility] [address] [facility] Referral ID Status Reason Start Date Expiration Date Visits Re quested Visits Authorized [id number] 1 1 Encounter Details Date Type Department Care Team (Latest Contact Info) Description 07/02/2023 10:10 AM EDT - 07/02/2023 11:59 PM EDT Hospital [place] [address] Discharge Disposition: Home Social History Tobacco Use Types Packs/Day Years Used Date Smoking Tobacco: Never Smokeless Tobacco: Never Alcohol Use Standard Drinks/Week Comments Never 0 (1 standard drink = 0.6 oz pur e alcohol) [facility] Utilities Answer Date Recorded In the past 12 months has [employer], gas, oil, or water company threatened [...] as needed. fluticasone propionate (FLONASE) 50 mcg/actuation [place], Suspension 1 spray by Each Nare [...] ordered. Henrietta Judge MD Vascular Surgery Pager: [phone] 07/02/23 ASA: 3 Mal: 3 Cr: Lab Results Component Value Date CREATININE 1.21 (H) 07/02/2023 * Deborah Ely RN - 07/02/2023 10:56 AM EDT [facility] DATABASE Name: Indira Roque Date of : 1970 AGE: 53 y.o. [facility] [address] (home) [phone] (work) Mobile: Telephone Information: Referring Provider: Pat [...] groin Right Groin Closure device used: Pro [place] Time sheath removed: 13:12 Time of hemostasis: [...] of : 1970 AGE: 53 y.o. Address: [facility] [address] (home) [phone] (work) Mobile: Telephone Information: Referring Provider: Pat [...] 3:00 PM EDT Office [place] [address] [place] [address] documented as of this encounter Procedures Procedure [...] mg documented in this encounter Care Teams Environmental Science Instructor Relationship Specialty Start Date End Date Polo Pearce PA [address] [place] [address] PCP - General Internal Medicine 06/09/21 documented as of this encounter
--- OUTSIDE RECORDS SUMMARY | 2024-04-10 17:07 | XMS_ITS | Encounter Summary ---
[place] [address] Care Team Providers Care Category Manager Name Role Phone Polo Pearce Primary Care Provider [phone] Reason for Visit * Auth/Cert (Routine) Specialty Diagnoses / Procedures Referred By Contac t Referred To Contact Diagnoses NSTEMI (non-ST elevated myocardial infarction) NSTEMI Procedures ER Terrence Pantoja MD [facility] [place] [address] [facility] Referral ID Status Reason Start Date Expiration Date Visits Re quested Visits Authorized [id number] 1 1 Encounter Details Date Type Department Care Team (Late st Contact Info) Description 07/07/2023 1:00 PM EDT - 07/07/2023 2:00 PM EDT [place] [address] Lashonda Villa MD [facility] [place] [address] EGD WITH BIOPSY (WRVU 2.39) Social History [...] Loida Roque Patient Age: 53 y.o. Language: Maldivian Race: White Ethnicity: Not nor Admit date: 06/14/2023 Discharge date and time: 07/09/2023 3:31 PM Attending Physician: Terrence Keating MD Discharge Physician: Terrence Keating MD Follow-up Recommendations for Providers: Inpatient Provider Contact Information: For questions regarding this document or issues relating to this hospitalization on the Medical Service, please contact your inpatient physician through the [facility] Software Qa System Specialist . Issues afterhours and on weekends [...] first. Electronically signed by: Wilton Cabrera MD, [facility] ([phone]), at 06/17/2023 5:[address] Abdomen & [...] care aid that requested your imaging first. Chest One [...] care aid that requested your imaging first. Abdomen Limited (Exam End: 06/28/2023 12:22 PM) Result Value WORKSTATION ID [id number] Narrative Abdominal (Signed Final 06/28/2023 02:08 pm) PATIENT INFO: ID #: [id number] : [birth year] (53 yrs)(F) Name: LOIDA Visit Date: 06/28/2023 12:20 pm ROHAN PERFORMED BY: Attending: Sigrid Owens MD Resident: Rafaela Huddleston MD Performed By: Deena Cabrera RDMS Referred By: AILYN IRVIN Location: [place] SERVICE(S) PROVIDED: UABDLIM - Abdominal Limited Survey Single 83315 Organ or Quadrant - [id number] INDICATIONS: RUQ pain, R/o Gall bladder colic, [...] have questions, please contact the health care aid that requested your imaging first. Sigrid Owens, E V Belt Builder Electronically Signed Final Report 06/28/2023 02:08 pm [...] anesthetic: 10 cc 1% lidocaine Heparin: Yes 86233 Units Protamine: No mg Antibiotics: Ancef Fluoro [...] We exchanged the sheath for a 7 Cymraes steward/stewardess tourist class steerable sheath over a stiff wire. A Glidewire and Kumpe catheter were used to selectively cannulate the superior mesenteric artery. Direct angiography of the superior mesenteric artery was performed, confirming the results of the nonselective aortography performed. The lesion was predilated with a 4 mm x 40 mm Latonia balloon, and then a 6 mm X [...] 07/03/2023 3:18 PM) Result Value WORKSTATION ID [id number] Narrative EXAMINATION: XR CHEST ONE VIEW CLINICAL [...] care aid that requested your imaging first. Echocardiogram from [...] pain. The patient was recently admitted at [facility] from 04/16/23 to 04/19/2023 as a transfer from [facility] due to exertional chest pressure [...] etiology, patient was accepted for transfer to [facility]. Brief Summary: Loida Roque is [...] with positive cardiac markers. Patient transferred to [facility] for further work-up and evaluation. [...] chronic. Her dc weight ~ <220 -resume orbert torsemide #Bibasilar atelectasis #restrictive lung disease secondary [...] Administered Date(s) Administered Moderna Covid-19 Monovalent 12Yr+ (Industrial Editor 100mcg) 03/06/2020, 04/03/2020 Discharge Medications: Your Medications [...] weight gain + increasing shortness of breath. [id number] minutes prior to a dose of torsemide). [...] appointments: During 8am-5pm Wednesday through Wednesday call [phone] to speak with a nurse in the cardiology clinic All other times call [phone] and ask to speak to the washer repairman arts education teacher. Return to work: One week Driving: No driving for 48 hours after catheterization. Follow up Appointments: PCP JOCY Franco [phone] 11:30am on July 19. Cardiology office will call you regarding your appointment with Dr. Kinsey. General Instructions None Future Appointments and Orders Future Appointments and Orders Future Appointments Provider Department Dept Phone 07/26/2023 3:20 PM Jaspreet Kinsey MD Cardiology at [place] Arrive at: [facility] [address] [phone] 07/29/2023 8:00 AM Porsha Mcdaniels MD Cardiology at [facility] Arrive at: Environmental Engineering Technician Area [phone] 08/03/2023 8:30 AM Eladio Boyer Vascular Lab at [facility] Arrive at: Environmental Engineering Technician Area 3V [phone] 08/03/2023 9:30 AM Judith Butler APRN Vascular Surgery at [facility] Arrive at: Environmental Engineering Technician Area 3V [phone] 09/02/2023 2:40 PM Jaspreet Kinsey MD Cardiology at [place] Arrive at: [facility] [address] [phone] Discharge References/Attachments None Greater than 30 minutes was spent on this discharge including documentation, [id number]-[id number] time withthe patient, patient education, reproduction order processor, coordination with pharmacy and other patient care. [...] appointments: During 8am-5pm Wednesday through Wednesday call [phone] to speak with a nurse in the cardiology clinic All other times call [phone] and ask to speak to the washer repairman arts education teacher. Return to work: One week Driving: No driving for 48 hours after catheterization. Follow up Appointments: PCP JOCY Franco [phone] 11:30am on July 19. Cardiology office will [...] as needed. fluticasone propionate (FLONASE) 50 mcg/actuation Mcdonough, Suspension 1 spray by Each Nare route [...] 4pm, per the team. Please refer to: [facility] [address] [place] [address] PHONE: [phone] FAX: [phone] *For RN RICARDO: 07/09/23 Nani Mendoza MSN-Ed, RN ACM Cardiac Research Nurse and Neuro/Neurocrit/ENT Stock Car Driver. * Mary Castaneda RCP - 07/09/2023 4:37 [...] 1:00 PM EDT [facility] H[facility]PITALIST 2 - [facility] DAILY PROGRESS NOTE Page [phone] to reach a provider 28/09 Admit Date: [...] with positive cardiac markers. Patient transferred to [facility] for further work-up and evaluation. [...] prn. Diet: Daily Healthy Menu Choices/Cardiac diet ([facility]-Diet) DVT Prophylaxis: DOAC heparin gtt. 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 Patient transferred to [facility] for further work-up and evaluation. [...] Score: 24 PT: OT: PCP JOCY Franco [phone] Terrence Keating MD 07/07/2023 * Terrence Keating MD - 07/06/2023 11:00 AM EDT [facility] - [facility] DAILY PROGRESS NOTE Page [phone] to reach a provider 28/09 Admit Date: [...] with positive cardiac markers. Patient transferred to [facility] for further work-up and evaluation. [...] hospital Diet: Daily Healthy Menu Choices/Cardiac diet ([facility]-Diet) NPO diet (Give Meds) DVT Prophylaxis: DOAC Code status: Attempt Cardiopulmonary Resuscitation - Inpatient Disposition: Discharge Location: AM-PAC Basic Mobility Raw Score: 24 PT: OT: PCP JOCY Franco [phone] Terrence Keating MD 07/06/2023 * Ana Paula [...] 11:00 AM EDT [facility] H[facility]PITAL[facility] 2 - [facility] DAILY PROGRESS NOTE Page [phone] to reach a provider 28/09 Admit Date: [...] with positive cardiac markers. Patient transferred to [facility] for further work-up and evaluation. [...] hospital Diet: Daily Healthy Menu Choices/Cardiac diet ([facility]-Diet) DVT Prophylaxis: DOAC Code status: Attempt Cardiopulmonary Resuscitation - Inpatient Disposition: Discharge Location: AM-PAC Basic Mobility Raw Score: 24 PT: OT: PCP JOCY Franco [phone] Terrence Keating MD 07/05/2023 * Lino Calles MD - 07/04/2023 9:09 AM EDT [facility] 2 - [facility] DAILY PROGRESS NOTE Page [phone] to reach a provider 28/09 Admit Date: [...] with positive cardiac markers. Patient transferred to [facility] for further work-up and evaluation. [...] migraine Diet: Daily Healthy Menu Choices/Cardiac diet ([facility]-Diet) DVT Prophylaxis: DOAC Code status: Attempt Cardiopulmonary Resuscitation - Inpatient Disposition: Discharge Location: AM-PAC Basic Mobility Raw Score: 24 PT: OT: PCP JOCY Franco [phone] Lino Calles MD 07/04/2023 * Ana Paula [...] 8:59 AM EDT [facility] H[facility]PITAL[facility] 2 - [facility] DAILY PROGRESS NOTE Page [phone] to reach a provider 28/09 Admit Date: [...] with positive cardiac markers. Patient transferred to [facility] for further work-up and evaluation. [...] PRN Diet: Daily Healthy Menu Choices/Cardiac diet ([facility]-Diet) DVT Prophylaxis: DOAC Code status: Attempt Cardiopulmonary Resuscitation - Inpatient Disposition: Discharge Location: AM-PAC Basic Mobility Raw Score: 24 PT: OT: PCP JOCY Franco [phone] Lino Calles MD 07/03/2023 * Van Muse [...] 9:55 AM EDT [facility] 2 - [facility] DAILY PROGRESS NOTE Page [phone] to reach a provider 28/09 Admit Date: [...] with positive cardiac markers. Patient transferred to [facility] for further work-up and evaluation. [...] PRN Diet: Daily Healthy Menu Choices/Cardiac diet ([facility]-Diet) DVT Prophylaxis: DOAC Code status: Attempt Cardiopulmonary Resuscitation - Inpatient Disposition: Discharge Location: AM-PAC Basic Mobility Raw Score: 24 PT: OT: PCP JOCY Franco [phone] Lino Calles MD 07/02/2023 * Jaspreet Griffith, [facility] - 07/02/2023 6:35 AM EDT Respiratory [...] 7:39 AM EDT [facility] H[facility]PITALIST 2 - [facility] DAILY PROGRESS NOTE Page [phone] to reach a provider 28/09 Admit Date: [...] with positive cardiac markers. Patient transferred to [facility] for further work-up and evaluation. [...] PRN Diet: Daily Healthy Menu Choices/Cardiac diet ([facility]-Diet) NPO diet (Give Meds) DVT Prophylaxis: DOAC Code status: Attempt Cardiopulmonary Resuscitation - Inpatient Disposition: Discharge Location: AM-[facility] Basic Mobility Raw Score: 24 PT: OT: PCP JOCY Franco [phone] Terrence Keating MD 07/01/2023 * Terrence Keating MD - 06/30/2023 8:00 AM EDT [facility] 2 - [facility] DAILY PROGRESS NOTE Page [phone] to reach a provider 28/09 Admit Date: [...] with positive cardiac markers. Patient transferred to [facility] for further work-up and evaluation. [...] Score: 24 PT: OT: PCP JOCY Franco [phone] Terrence Keating MD 06/30/2023 * Terrence Keating MD - 06/29/2023 4:29 PM EDT [facility]IST 2 - [facility] DAILY PROGRESS NOTE Page [phone] to reach a provider 28/09 Admit Date: [...] with positive cardiac markers. Patient transferred to [facility] for further work-up and evaluation. [...] Score: 24 PT: OT: PCP JOCY Franco [phone] Terrence Keating MD 06/29/2023 * Jo Ann Sharpe - 06/29/2023 2:54 PM EDT Nutrition Services Note - Low Nutrition Acuity Loida Roque is a 53 y.o. female Reason for intervention: follow up Nutrition Plan: Continue current diet. Encourage good PO intake. Spironolactone noted. Abdominal pain after eating noted. Encouragement and support provided. Pt screened for follow-up visit and mortgage loan underwriter met with Pt at bedside. Pt [...] consulted in the interim. Jo Ann Sharpe Transit Man * Mary Castaneda RCP - 06/29/2023 3:55 [...] 1:53 PM EDT [facility] 2 - [facility] DAILY PROGRESS NOTE Page [phone] to reach a provider 28/09 Admit Date: [...] with positive cardiac markers. Patient transferred to [facility] for further work-up and evaluation. [...] Score: 24 PT: OT: PCP JOCY Franco [phone] * Ailyn Irvin MD - 06/27/2023 9:40 AM EDT [facility] 2 - [facility] DAILY PROGRESS NOTE Page [phone] to reach a provider 28/09 Admit Date: [...] (from the past 24 hour(s)). Assessment: Loida Rqoue is a 53 y.o. female with a [...] with positive cardiac markers. Patient transferred to [facility] for further work-up and evaluation. [...] Score: 24 PT: OT: PCP JOCY Franco [phone] * Ailyn Irvin MD - 06/26/2023 12:42 PM EDT CV H[facility]PITALIST 2 - [facility] DAILY PROGRESS NOTE Page [phone] to reach a provider 28/09 Admit Date: [...] with positive cardiac markers. Patient transferred to [facility] for further work-up and evaluation. [...] Score: 24 PT: OT: PCP JOCY Franco [phone] * Mitali Manuel RCP - 06/26/2023 5:43 [...] 1:39 PM EDT [facility]IST 2 - [facility] DAILY PROGRESS NOTE Page [phone] to reach a provider 28/09 Admit Date: [...] with positive cardiac markers. Patient transferred to [facility] for further work-up and evaluation. [...] Score: 24 PT: OT: PCP JOCY Franco [phone] * Edith Chandler RCP - 06/24/2023 10:40 [...] 4:38 PM EDT [facility] H[facility]IST 2 - [facility] DAILY PROGRESS NOTE Page [phone] to reach a provider 28/09 Admit Date: [...] with positive cardiac markers. Patient transferred to [facility] for further work-up and evaluation. [...] Score: 24 PT: OT: PCP JOCY Franco [phone] * Aaron Rosado RCP - 06/24/2023 1:55 [...] 1:03 PM EDT CV H[facility]IST 2 - [facility] DAILY PROGRESS NOTE Page [phone] to reach a provider 28/09 Admit Date: [...] with positive cardiac markers. Patient transferred to [facility] for further work-up and evaluation. [...] Score: 24 PT: OT: PCP JOCY Franco [phone] * Ciera Valdovinos RD - 06/22/2023 2:38 PM EDT Nutrition Services Note - Low Nutrition Acuity Loida Roque is a 53 y.o. female Reason for intervention: hospital day 9 Nutrition Plan: Cardiac Diet Record % PO intake Monitor weight - diuresis noted Patient screened for hospital length of stay nutrition visit, mortgage loan underwriter met with Loida at bedside. Loida [...] 1:35 PM EDT [facility] H[facility]PITALIST 2 - [facility] DAILY PROGRESS NOTE Page [phone] to reach [...] care aid that requested your imaging first. Chest One [...] care aid that requested your imaging first. Assessment: Loida [...] with positive cardiac markers. Patient transferred to [facility] for further work-up and evaluation. [...] above Diet: Daily Healthy Menu Choices/Cardiac diet ([facility]-Diet) DVT Prophlaxis: eliquis Code status: Attempt Cardiopulmonary Resuscitation - Inpatient Disposition: Discharge Planning: AM-PAC Basic Mobility Raw Score: 24 PT: OT: PCP JOCY Franco [phone] * Eufemia Copeland MD - 06/21/2023 11:02 AM EDT CV H[facility]PITALIST 2 - [facility] DAILY PROGRESS NOTE Page [phone] to reach a provider 28/09 Admit Date: [...] with positive cardiac markers. Patient transferred to [facility] for further work-up and evaluation. [...] Restart eliquis 06/15. #[facility]igraines [facility] PRN Fluids: per migraine cocktail Electrolytes: replete as above Diet: Daily Healthy Menu Choices/Cardiac diet ([facility]-Diet) DVT Prophlaxis: eliquis Code status: Attempt Cardiopulmonary Resuscitation - Inpatient Disposition: Discharge Planning: AM-PAC Basic Mobility Raw Score: 24 PT: OT: PCP JOCY Franco [phone] * Eufemia Copeland MD - 06/20/2023 8:06 AM EDT CV HOSPITALIST 2 - [facility] DAILY PROGRESS NOTE Page [phone] to reach a provider 28/09 Admit Date: [...] 06/14/23 (from the past 24 hour(s)). Assessment: Lodia Roque is a 53 y.o. female with [...] with positive cardiac markers. Patient transferred to [facility] for further work-up and evaluation. [...] above Diet: Daily Healthy Menu Choices/Cardiac diet ([facility]-Diet) DVT Prophlaxis: eliquis Code status: Attempt Cardiopulmonary Resuscitation - Inpatient Disposition: Discharge Planning: AM-PAC Basic Mobility Raw Score: 24 PT: OT: PCP JOCY Franco [phone] * Eufemia Copeland MD - 06/19/2023 10:00 AM EDT [facility] H[facility]PITALIST 2 - [facility] DAILY PROGRESS NOTE Page [phone] to reach a provider 28/09 Admit Date: [...] with positive cardiac markers. Patient transferred to [facility] for further work-up and evaluation. [...] above Diet: Daily Healthy Menu Choices/Cardiac diet ([facility]-Diet) DVT Prophlaxis: eliquis Code status: Attempt Cardiopulmonary Resuscitation - Inpatient Disposition: Discharge Planning: AM-PAC Basic Mobility Raw Score: 24 PT: OT: PCP JOCY Franco [phone] * Eufemia Copeland MD - 06/18/2023 9:02 AM EDT CV H[facility]PITALIST 2 - [facility] DAILY PROGRESS NOTE Page [phone] to [...] with positive cardiac markers. Patient transferred to [facility] for further work-up and evaluation. [...] above Diet: Daily Healthy Menu Choices/Cardiac diet ([facility]-Diet) DVT Prophlaxis: eliquis Code status: Attempt Cardiopulmonary Resuscitation - Inpatient Disposition: Discharge Planning: AM-PAC Basic Mobility Raw Score: 24 PT: OT: PCP JOCY Franco [phone] * Eufemia Copeland MD - 06/17/2023 12:02 PM EDT CV HOSPITALIST 2 - [facility] DAILY PROGRESS NOTE Page [phone] to reach a provider 28/09 Admit Date: [...] with positive cardiac markers. Patient transferred to [facility] for further work-up and evaluation. [...] Restart eliquis 06/15 #[facility]igraines [facility] cocktail PRN Fluids: per migraine cocktail Electrolytes: replete as above Diet: Daily Healthy Menu Choices/Cardiac diet ([facility]-Diet) DVT Prophlaxis: eliquis Code status: Attempt Cardiopulmonary Resuscitation - Inpatient Disposition: Discharge Planning: AM-PAC Basic Mobility Raw Score: 24 PT: OT: PCP JOCY Franco [phone] * Calista Hernandez, RT - 06/17/2023 4:36 [...] 3:25 PM EDT CV HOSPITALIST 2 - [facility] DAILY PROGRESS NOTE Page [phone] to reach a provider 28/09 Admit Date: [...] with positive cardiac markers. Patient transferred to [facility] for further work-up and evaluation. [...] Restart eliquis 06/15 #[facility]igraines [facility] - migraine cocktail PRN Fluids: per migraine cocktail Electrolytes: replete as above Diet: Daily Healthy Menu Choices/Cardiac diet ([facility]-Diet) DVT Prophlaxis: eliquis Code status: Attempt Cardiopulmonary Resuscitation - Inpatient Disposition: Discharge Planning: AM-PAC Basic Mobility Raw Score: 24 PT: OT: PCP JOCY Franco [phone] documented in this encounter H&P Notes * [...] pain. The patient was recently admitted at [facility] from 04/16/23 to 04/19/2023 as a transfer from [facility] due to exertional chest pressure [...] etiology, patient was accepted for transfer to [facility]. 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 fluticasone propionate (FLONASE) 50 mcg/actuation Mcdonough, Suspension 1 spray by Each Nare route [...] for discharge to home with family support, [facility] for RN and OP Cardi clinic for f/u. Needs for Transition of Care: Plan for discharge is: Home w/ Services Outpatient Agency/Support Group Needs: None Home Health Services: Registered Nurse Agency Referrals & Follow-up Care: Contact information for follow-up Home Health & Hospice, [place] [address] [place] [address] Transportation: taxi voucher -Ride confirmed entrance #2 [...] none Patient is insured through: Primary Insurance: [employer] [place] Pay[place] [employer] [place] / Plan[place]ANGE / Product Type: *No Product type* / Secondary Insurance: N/A Prescription Coverage: Yes This plan was formulated with input from patient, (please identify family/friend involved if applicable) and team. All are in agreement with plan. Nani Mendoza MSN-Ed, RN ACM Cardiac Research Nurse and Neuro/Neurocrit/ENT Stock Car Driver. * Care Management - Dixie Patterson - 07/09/2023 1:38 PM EDT Transportation for discharge was scheduled and confirmed through [employer]. [employer] will have a fast food delivery driver here at entrance #2 @4pm [...] Visceral Aorta 80 16 Celiac Artery, Proximal Christian-Biphasic 119 26 Celiac Artery, Mid Christian-Biphasic 115 21 Celiac Artery, Distal No Vis Sup Mes Artery Proximal Biphasic 427 91 Sup Mes Artery Middle Christian-Biphasic 100 17 Sup Mes Artery Distal Christian-Biphasic 64 15 Hepatic Artery No Vis Splenic [...] sign off at this time, please page [phone] with any questions or concerns. Discussed with [...] Visceral Aorta 80 16 Celiac Artery, Proximal Christian-Biphasic 119 26 Celiac Artery, Mid Christian-Biphasic 115 21 Celiac Artery, Distal No Vis Sup Mes Artery Proximal Biphasic 427 91 Sup Mes Artery Middle Christian-Biphasic 100 17 Sup Mes Artery Distal Christian-Biphasic 64 15 Hepatic Artery No Vis Splenic [...] duplex Discussed with Dr. Kamara. Please page [phone] with any questions or concerns. 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 Fellow in Gastroenterology and Hepatology Pager #[phone] 07/06/2023 Associated attestation - Lashonda Villa MD [...] Lashonda Villa MD Gastroenterology and hepatology Pager: [phone] * Plan of Care - Olive Hernandez [...] Visceral Aorta 80 16 Celiac Artery, Proximal Christian-Biphasic 119 26 Celiac Artery, Mid Christian-Biphasic 115 21 Celiac Artery, Distal No Vis Sup Mes Artery Proximal Biphasic 427 91 Sup Mes Artery Middle Christian-Biphasic 100 17 Sup Mes Artery Distal Christian-Biphasic 64 15 Hepatic Artery No Vis Splenic [...] duplex Discussed with Dr. Kamara. Please page [phone] with any questions or concerns. Gauri Vega [...] Visceral Aorta 80 16 Celiac Artery, Proximal Christian-Biphasic 119 26 Celiac Artery, Mid Christian-Biphasic 115 21 Celiac Artery, Distal No Vis Sup Mes Artery Proximal Biphasic 427 91 Sup Mes Artery Middle Christian-Biphasic 100 17 Sup Mes Artery Distal Christian-Biphasic 64 15 Hepatic Artery No Vis Splenic [...] ASA) Discussed with Dr. Kamara. Please page [phone] with any questions or concerns. Gauri Vega [...] Visceral Aorta 80 16 Celiac Artery, Proximal Christian-Biphasic 119 26 Celiac Artery, Mid Christian-Biphasic 115 21 Celiac Artery, Distal No Vis Sup Mes Artery Proximal Biphasic 427 91 Sup Mes Artery Middle Christian-Biphasic 100 17 Sup Mes Artery Distal Christian-Biphasic 64 15 Hepatic Artery No Vis Splenic [...] 07/02/[address] Kamara. Please page [phone] with any questions or concerns. Gauri Vega [...] Visceral Aorta 80 16 Celiac Artery, Proximal Christian-Biphasic 119 26 Celiac Artery, Mid Christian-Biphasic 115 21 Celiac Artery, Distal No Vis Sup Mes Artery Proximal Biphasic 427 91 Sup Mes Artery Middle Christian-Biphasic 100 17 Sup Mes Artery Distal Christian-Biphasic 64 15 Hepatic Artery No Vis Splenic [...] tonight Discussed with Dr. Kamara. Please page [phone] with any questions or concerns. Gauri Vega [...] Visceral Aorta 80 16 Celiac Artery, Proximal Christian-Biphasic 119 26 Celiac Artery, Mid Christian-Biphasic 115 21 Celiac Artery, Distal No Vis Sup Mes Artery Proximal Biphasic 427 91 Sup Mes Artery Middle Christian-Biphasic 100 17 Sup Mes Artery Distal Christian-Biphasic 64 15 Hepatic Artery No Vis Splenic [...] Visceral Aorta 80 16 Celiac Artery, Proximal Christian-Biphasic 119 26 Celiac Artery, Mid Christian-Biphasic 115 21 Celiac Artery, Distal No Vis Sup Mes Artery Proximal Biphasic 427 91 Sup Mes Artery Middle Christian-Biphasic 100 17 Sup Mes Artery Distal Christian-Biphasic 64 15 Hepatic Artery No Vis Splenic [...] Dominguez PA - 06/28/2023 8:52 AM EDT [facility] Department of Cardiology Consult Progress [...] required. Chayo Dominguez PA-C Cardiovascular Medicine Pager [phone] 06/28/2023 Associated attestation - Klarissa Henderson - [...] Tellez MD - 06/24/2023 2:14 PM EDT [facility] Department of Cardiology Consult Progress [...] if further consultation required. 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 fluticasone propionate (FLONASE) 50 mcg/actuation Mcdonough, Suspension 1 spray by Each Nare route [...] other (see comments) (Has CPAP provided through [facility]) DME Needed at Discharge: No Patient is insured through: Primary Insurance: [employer] [place] [employer] [place] / Plan[place] / [...] other (see comments) (Has CPAP provided through [facility]) DME Needed at Discharge: No Patient is insured through: Primary Insurance: [employer] [place] [employer] [place] / Plan: [facility] [place] / Product Type: *No Product [...] of Discharge: 06/19/2023 BEA Killian, RN Inpatient Sewing Machine Assembler- Cardiology Office of Care Management Pager #: [phone] * Plan of Care - Olive Hernandez [...] COVID test: Lab Results Component Value Date [id number] Not Detected 06/13/2021 Past medical History: Past [...] In the past 12 months has the [employer], gas, oil, or water [employer] threatened to shut off services in your [...] other (see comments) (Has CPAP provided through [facility]) [address] [facility] [address] Social & Family Supports: All names listed [...] Specific Information: Has a CPAP provided by [facility]/Prescription Coverage: Primary Insurance: [employer] [place] [employer] [place] / Plan[place] / Product Type: *No Product type* / Secondary Insurance: N/A ; Prescription Coverage: Yes Preferred Pharmacy: [facility] [address] [address] [facility] [address] [address] Status: Patient is a : No Primary Care Provider confirmed: JOCY Franco [phone] Patient/Caregiver Goals of Treatment: To figure out what is wrong Potential Needs for Transition of Care: other (see comments) ([facility] fincal help) Agency Referrals: Not Applicable Transportation: [...] Office of Care Management Float / time clock mechanic police specialist [email or web address] Pager #[phone] * Consult Note - Jackie Batres MD - 06/15/2023 11:04 AM EDT [facility] Department of Cardiology Initial Consult [...] her case. She has not had recent penitentiary monitoring for arrhythmia, though unlikely, is possible [...] 3:00 PM EDT Office [place] [address] [place] [address] Scheduled Orders Name Type Priority Associated Diagnoses [...] Routine 07/07/2023 2:25 PM EDT Colonoscopy, Biopsy ([id number]) 07/07/2023 2:10 PM EDT post prandial pain Upper Gi Endoscopy, Biopsy ([id number]) 07/07/2023 2:10 PM EDT post prandial pain [...] EDT) Glucose 111 65 - 199 mg/dL [facility] Comment:Diabetes: >=200 mg/d L plus symptoms Blood Urea Nitrogen 29(H) 8 - 18 mg/dL [facility] [...] mmol/L [facility] Carbon Dioxide 29 22 - 31 mmol/L [facility] Anion Gap 12 5 - 15 mmol/L [facility] Calcium 10.0 8.5 - 10.5 mg/dL [facility] Est Glomerular Filtration Rate 44(L) >=60 mL/min/1. 73 m?? [facility] [...] MD CHEMISTRY ORDERABLES [facility] [place] [address] * Differential, Automated (07/09/2023 3:03 AM EDT) Neutrophil % 51.4 % [facility] Neutrophil Absolute 3.43 1.70 - 6.10 x10(3)/[facility] Lymph % 31.4 % [facility] Lymphocytes Abs 2.1 0.9 - 3.2 x10(3)/[facility] Monocyte % 10.1 % [facility] Monocyte Abs 0.7 0.3 - 0.9 x10(3)/[facility] Eos % 6.0 % [facility] Eosinophils Abs 0.4 0.0 - 0.4 x10(3)/[facility] Basophil % 0.8 % [facility] Baso Absolute 0.0 0.0 - 0.1 x10(3)/[facility] Immature Gran % 0.30 % [facility] [...] x10(3)/[facility] Blood 07/09/2023 3:03 AM EDT 07/09/2023 3:14 AM EDT Narrative Resulting Agency Comment Spec In Lab Terrence Keating MD HEMATOLOGY ORDERABLE S [facility] [place] [place] [address] * (ABNORMAL) Hemogram (07/09/2023 3:03 AM EDT) [facility] White Blood Cell 6.7 4.0 - 9.5 x10(3)/mc L [facility] Red Blood Cell 3.87(L) 4.00 - 5.21 x10(6)/mc L [facility] Hemoglobin 12.4 11.7 - 15.5 g/dL [facility] Hematocrit 36.8 35.7 - 45.8 % [facility] Mean Cell Volume 95.1(H) 82.6 - 94.4 fL [facility] Mean Cell Hemoglobin 32.0 27.1 - 32.0 pg [facility] Mean Cell Hemoglobin Concentration 33.7 31.7 - 35.0 g/dL [facility] Platelet 209 145 - 357 x10(3)/mc L [facility] RDW Standard Deviation 47.9(H) 37.0 - 46.0 fL [facility] RDW coefficient of variation 13.7 11.5 - 14.1 % [facility] Mean Platelet Volume 10.5 7.6 - 12.9 fL [facility] NRBC% auto 0.0 % [facility] NRBC Absolute 0.000 0.000 - 0.000 x10(3)/mc L [facility] Blood 07/09/2023 3:03 AM EDT 07/09/2023 3:14 AM EDT Narrative Resulting Agency Comment Spec In Lab Terrence Keating MD HEMATOLOGY ORDERABLE S [facility] [place] [address] * Heparin (unfractionated) Level (07/09/2023 3:03 AM EDT) [facility] UF Heparin 0.52 IU/mL [place] HEMATOLOGY ORDERABLE S [facility] [place] [address] * (ABNORMAL) Basic Metabolic Panel (non-fasting) (07/09/2023 3:03 AM EDT) [facility] Glucose 100 65 - 199 mg/dL [facility] Comment:Diabetes: >=200 mg/d L plus symptoms Blood Urea Nitrogen 12 8 - 18 mg/dL [facility] [...] Filtration Rate 52(L) >=60 mL/min/1. 73 m?? [facility] [...] MD CHEMISTRY ORDERABL ES Performing Organization Address City/[facility]/ZIP Co de Phone Number [facility] [place] [address] * Phosphorus (07/09/2023 3:03 AM EDT) Phosphorus 4.5 2.5 - 4.5 mg/dL [facility] Blood 07/09/2023 3:03 AM EDT 07/09/2023 3:14 AM EDT Narrative Resulting Agency Comment Spec In Lab Eufemia Copeland MD CHEMISTRY ORDERABL ES [facility] [place] [address] * Magnesium (07/09/2023 3:03 AM EDT) Magnesium 0.91 0.69 - 1.07 mmol/L [facility] Blood 07/09/2023 3:03 AM EDT 07/09/2023 3:14 AM EDT Narrative Resulting Agency Comment Spec In Lab Eufemia Copeland MD CHEMISTRY ORDERABL ES Performing Organization Address [facility]/ZIP Co de Phone Number [facility] [place] [address] * Heparin (unfractionated) Level (07/08/2023 12:02 PM [...] ORDERABLE S Performing Organization Address [facility]/ZIP Co de Phone Number [facility] [place] [address] * EKG 12 Lead (07/08/2023 9:58 AM EDT) Ventricular rate 66 BPM MUSE SYSTEM Atrial Rate 66 BPM MUSE SYSTEM P-R Interval 178 ms MUSE SYSTEM QRS Duration 92 ms MUSE SYSTEM Q-T Interval 486 ms MUSE SYSTEM QTC Calculated (Bezet) 509 ms MUSE SYSTEM Calculated P Rea 29 degrees MUSE SYSTEM Calculated R Rea 33 degrees MUSE SYSTEM Calculated T Rea 29 degrees MUSE SYSTEM INTERPRETATION Normal sinus rhythm Nonspecific ST and T wave abnormality Prolonged QT Abnormal ECG When compared with ECG of 04-JUL-2023 11:41, Criteria for Septal infarct are no longer Present I personally reviewed the tracing and edited the fellows interpretation Confirmed by fellow MD Keyshawn, Katalina ([id number]) on 07/08/2023 3:18:07 PM Confirmed by MD Beatriz, Klarissa ([id number]) on 07/09/2023 6:15:21 AM MUSE SYSTEM 07/08/2023 9:58 AM EDT 07/09/2023 6:15 AM EDT Lisa Beck MD ECG ORDERABLES MUSE SYSTEM * Differential, Automated (07/08/2023 5:52 AM EDT) Neutrophil % 60.6 % [facility] Neutrophil Absolute 4.42 1.70 - 6.10 x10(3)/[facility] Lymph % 24.8 % [facility] Lymphocytes Abs 1.8 0.9 - 3.2 x10(3)/[facility] Monocyte % 9.2 % [facility] Monocyte Abs 0.7 0.3 - 0.9 x10(3)/[facility] Eos % 4.5 % [facility] Eosinophils Abs 0.3 0.0 - 0.4 x10(3)/[facility] Basophil % 0.5 % [facility] Baso Absolute 0.0 0.0 - 0.1 x10(3)/[facility] Immature Gran % 0.40 % [facility] [...] x10(3)/[facility] Blood 07/08/2023 5:52 AM EDT 07/08/2023 5:58 AM EDT Narrative Resulting Agency Comment Spec In Lab Terrence Keating MD HEMATOLOGY ORDERABLE S [facility] [place] [address] * (ABNORMAL) Hemogram (07/08/2023 5:52 AM EDT) White Blood Cell 7.3 4.0 - 9.5 x10(3)/mc L [facility] Red Blood Cell 3.94(L) 4.00 - 5.21 x10(6)/mc L [facility] Hemoglobin 12.3 11.7 - 15.5 g/dL [facility] Hematocrit 36.3 35.7 - 45.8 % [facility] Mean Cell Volume 92.1 82.6 - 94.4 fL [facility] Mean Cell Hemoglobin 31.2 27.1 - 32.0 pg [facility] Mean Cell Hemoglobin Concentration 33.9 31.7 - 35.0 g/dL [facility] Platelet 207 145 - 357 x10(3)/mc L [facility] RDW Standard Deviation 44.6 37.0 - 46.0 [facility] RDW coefficient of variation 13.3 11.5 - 14.1 % [facility] Mean Platelet Volume 10.5 7.6 - 12.9 [facility] NRBC% auto 0.0 % [facility] NRBC Absolute 0.000 0.000 - 0.000 x10(3)/mc L [facility] Blood 07/08/2023 5:52 AM EDT 07/08/2023 5:58 AM EDT Narrative Resulting Agency Comment Spec In Lab Terrence Keating MD HEMATOLOGY ORDERABLE S [facility] [place] [address] * Heparin (unfractionated) Level (07/08/2023 5:52 AM [...] HEMATOLOGY ORDERABLE S [facility] [place] [address] * (ABNORMAL) Basic Metabolic Panel (non-fasting) (07/08/2023 5:52 AM EDT) Pathologist [facility] Glucose 102 65 - 199 mg/dL [facility] Comment:Diabetes: >=200 mg/d L plus symptoms Blood Urea Nitrogen 14 8 - 18 mg/dL [facility] [...] mmol/L [facility] Carbon Dioxide 25 22 - 31 mmol/L [facility] Anion Gap 13 5 - 15 mmol/L [facility] Calcium 9.3 8.5 - 10.5 mg/dL [facility] Est Glomerular Filtration Rate 49(L) >=60 mL/min/1. 73 m?? [facility] [...] MD CHEMISTRY ORDERABL ES Performing Organization Address City/[facility]/ZIP Co de Phone Number [facility] [place] [address] * Phosphorus (07/08/2023 5:52 AM EDT) Phosphorus 4.3 2.5 - 4.5 mg/dL [facility] Blood 07/08/2023 5:52 AM EDT 07/08/2023 5:58 AM EDT Narrative Resulting Agency Comment Spec In Lab Eufemia Copeland MD CHEMISTRY ORDERABL ES Performing Organization Address City/[facility]/ZIP Co de Phone Number [facility] [place] [address] * Magnesium (07/08/2023 5:52 AM EDT) Magnesium 0.89 0.69 - 1.07 mmol/L [facility] Blood 07/08/2023 5:52 AM EDT 07/08/2023 5:58 AM EDT Narrative Resulting Agency Comment Spec In Lab Eufemia Copeland MD CHEMISTRY ORDERABL ES Performing Organization Address [facility] de Phone Number [facility] [place] [address] * Heparin (unfractionated) Level (07/08/2023 12:00 AM [...] ORDERABLE S Performing Organization Address [facility] Co de Phone Number [facility] [place] [address] * Specimen to Pathology (07/07/2023 2:55 PM EDT) AP Specimen 07/07/2023 2:55 PM EDT 07/07/2023 2:55 PM EDT Narrative [facility] - 07/07/2023 2:55 PM EDT Specimen requisition ordered. ??Separate Pathology report to follow Terrence Keating MD PATHOLOGY/CYTOLOGY O RDERABLES Performing Organization Address [facility]/ZIP Co de Phone Number [facility] [place] [address] * Specimen to Pathology (07/07/2023 2:38 PM EDT) AP Specimen 07/07/2023 2:38 PM EDT 07/07/2023 2:38 PM EDT Narrative [facility] - 07/07/2023 2:38 PM EDT Specimen requisition ordered. ??Separate Pathology report to follow Terrence Keating MD PATHOLOGY/CYTOLOGY O RUMA Performing Organization Address [facility] [place] [address] * Specimen to Pathology (07/07/2023 2:38 PM EDT) AP Specimen 07/07/2023 2:38 PM EDT 07/07/2023 2:38 PM EDT Narrative [facility] - 07/07/2023 2:38 PM EDT Specimen requisition ordered. ??Separate Pathology report to follow Terrence Keating MD PATHOLOGY/CYTOLOGY O RUMA Performing Organization Address [facility] [place] [address] * Surgical Pathology Report (07/07/2023 2:25 PM EDT) Pathologist [facility] Final Diagnosis [id number] ? [facility]; A The signing pathologist has (i) [...] Sapna Verified: ??07/19/2023 13:25 ??Pathologist Performed at: ??-[facility] Dept. of Pathology, [place] [address] Clinical Director: Vangie Lu MD, FCAP, ??CLIA Certificate: [id number] SPECIMEN(S) SUBMITTED A - duodenal biopsies rule [...] labeled C1-C2. ??sdy 07/19/2023 1:25 PM EDT [facility] GI Biopsy 07/07/2023 2:25 PM EDT 07/07/2023 2:25 PM EDT GI Biopsy 07/07/2023 2:25 PM EDT 07/07/2023 2:25 PM EDT GI Biopsy 07/07/2023 2:25 PM EDT 07/07/2023 2:25 PM EDT Lashonda Villa MD PATHOLOGY/CYTOLOGY O RDERABLES [facility] [place] [address] * COLONOSCOPY (07/07/2023 1:39 PM EDT) COLONOSCOPY [facility] Endoscopy Procedure Date: 07/07/2023 1:39 PM ? Patient Name: Loida Roque ? N: [id number] ? Date of : 1970 ? Age: 53 ? Order #: [id number] ? Instrument Name: [id number]- [id number] ? Procedure: ? Colonoscopy Indications: ? Abdominal pain, Diarrhea Providers: ? Lashonda Villa MD, [place] ? Systrom, Mercedes Toledo, Bouchra Recinos MD: [...] ? was evaluated using the BBPS ? ([place]leman Bowel Preparation Scale) ? with scores of: [...] Procedure Code(s): ? --- Professional --- ? 39666, Colonoscopy, flexible; with ? biopsy, single or multiple CPT copyright 2021 [employer]. All rights reserved. The codes documented in this report are preliminary and upon cryptologic technician operator/analyst review may be revised to meet current [...] GENERAL SURGICAL ORD ERABLES Performing Organization Address City/[facility]/ZIP Co de Phone Number [employer] * Shiga Toxin Detection (07/07/2023 12:10 PM EDT) Shiga Toxin Assay EIA Negative for Shiga Toxin 1 EIA Negative for Shiga Toxin 2 [facility] Stool 07/07/2023 12:1 0 PM EDT 07/07/2023 12:53 PM EDT Narrative Resulting Agency Comment Spec In Lab Ailyn Irvin MD MICROBIOLOGY - GENER AL ORDERABLES Performing Organization Address City/[facility]/ZIP Co de Phone Number [facility] [place] [address] * Campylobacter Antigen (07/07/2023 12:10 PM EDT) Campylobacter Ag Immunoassay Negative for Campylobacter Antigen [facility] Stool 07/07/2023 12:1 0 PM EDT 07/07/2023 12:53 PM EDT Narrative Resulting Agency Comment Spec In Lab Ailyn Irvin MD MICROBIOLOGY - GENER AL ORDERABLES Performing Organization Address City/[facility]/ZIP Co de Phone Number [facility] [place] [address] * Stool culture (07/07/2023 12:10 PM EDT) Stool Culture No enteric pathogens isolated [facility] Stool 07/07/2023 12:1 0 PM EDT 07/07/2023 12:53 PM EDT Narrative Resulting Agency Comment Spec In Lab Ailyn Irvin MD MICROBIOLOGY - GENER AL ORDERABLES Performing Organization Address [facility] de Phone Number [facility] [place] [place] [address] * (ABNORMAL) Differential, Automated (07/07/2023 3:51 AM EDT) Neutrophil % 58.9 % [facility] Neutrophil Absolute 4.67 1.70 - 6.10 x10(3)/mc L [facility] Lymph % 24.8 % [facility] Lymphocytes Abs 2.0 0.9 - 3.2 x10(3)/mc L [facility] Monocyte % 9.4 % [facility] Monocyte Abs 0.7 0.3 - 0.9 x10(3)/mc L [facility] Eos % 6.1 % [facility] Eosinophils Abs 0.5(H) 0.0 - 0.4 x10(3)/mc L [facility] Basophil % 0.5 % [facility] Baso Absolute 0.0 0.0 - 0.1 x10(3)/mc L [facility] [...] Absolute 0.02 0.00 - 0.04 x10(3)/mc L [facility] Blood 07/07/2023 3:51 AM EDT 07/07/2023 4:08 AM EDT Narrative Resulting Agency Comment Spec In Lab Terrence Keating MD HEMATOLOGY ORDERABLE S [facility] [place] [address] * Hemogram (07/07/2023 3:51 AM EDT) White Blood Cell 7.9 4.0 - 9.5 x10(3)/[facility] Red Blood Cell 4.42 4.00 - 5.21 x10(6)/[facility] Hemoglobin 13.8 11.7 - 15.5 g/dL [facility] Hematocrit 41.0 35.7 - 45.8 % [facility] Mean Cell Volume 92.8 82.6 - 94.4 fL [facility] Mean Cell Hemoglobin 31.2 27.1 - 32.0 pg [facility] Mean Cell Hemoglobin Concentration 33.7 31.7 - 35.0 g/dL [facility] Platelet 255 145 - 357 x10(3)/[facility] RDW Standard Deviation 44.8 37.0 - 46.0 [facility] RDW coefficient of variation 13.2 11.5 - 14.1 % [facility] Mean Platelet Volume 10.6 7.6 - 12.9 fL [facility] NRBC% auto 0.0 % [facility] NRBC Absolute 0.000 0.000 - 0.000 x10(3)/[facility] Blood 07/07/2023 3:51 AM EDT 07/07/2023 4:08 AM EDT Narrative Resulting Agency Comment Spec In Lab Terrence Keating MD HEMATOLOGY ORDERABLE S Performing Organization Address [facility] Co de Phone Number [facility] [place] [place] [address] * Heparin (unfractionated) Level (07/07/2023 3:51 AM [...] ORDERABLE S Performing Organization Address [facility]/ZIP Co de Phone Number [facility] [place] [address] * (ABNORMAL) Basic Metabolic Panel (non-fasting) (07/07/2023 3:51 AM EDT) Glucose 101 65 - 199 mg/dL [facility] [...] mmol/L [facility] Carbon Dioxide 23 22 - 31 mmol/L [facility] Anion Gap 16(H) 5 - 15 mmol/L [facility] Calcium 9.4 8.5 - 10.5 mg/dL [facility] Est Glomerular Filtration Rate 49(L) >=60 mL/min/1. 73 m?? [facility] [...] CHEMISTRY ORDERABL ES [facility] [place] [address] * Phosphorus (07/07/2023 3:51 AM EDT) Phosphorus 4.0 2.5 - 4.5 mg/dL [facility] Blood 07/07/2023 3:51 AM EDT 07/07/2023 4:08 AM EDT Narrative Resulting Agency Comment Spec In Lab Eufemia Copeland MD CHEMISTRY ORDERABL ES Performing Organization Address [facility] Co de Phone Number [facility] [place] [address] * Magnesium (07/07/2023 3:51 AM EDT) [facility] Magnesium 0.87 0.69 - 1.07 mmol/L [facility] Blood 07/07/2023 3:51 AM EDT 07/07/2023 4:08 AM EDT Narrative Resulting Agency Comment Spec In Lab Eufemia Copeland MD CHEMISTRY ORDERABL ES Performing Organization Address [facility] Phone Number [facility] [place] [address] * Hepatic Function Panel (07/07/2023 3:51 AM EDT) [facility] Protein, Total 7.5 6.1 - 8.0 g/dL [facility] Albumin 4.4 3.2 - 5.2 g/dL [facility] Aspartate Aminotransferase 15 0 - 30 unit/L [facility] Alanine Aminotransferase 20 0 - 30 unit/L [facility] Alkaline Phosphatase 54 35 - 105 unit/L [facility] Bilirubin, Total 0.4 0.2 - 1.3 mg/dL [facility] Bilirubin, Direct 0.1 0.0 - 0.3 mg/dL [facility] Blood 07/07/2023 3:51 AM EDT 07/07/2023 4:08 AM EDT Narrative Resulting Agency Comment Spec In Lab Ailyn Irvin MD CHEMISTRY ORDERABLES Performing Organization Address [facility] Co de Phone Number [facility] [place] [address] * Giardia/Cryptosporidium Antigens (MC/CGP/APD/NLH) (07/07/2023 12:38 AM EDT) Giardia Antigen Negative Negative [facility] Comment:Examination for othe r intestinal parasites requires foreign travel history. Cryptosporidium Antigen Negative Negative [facility] Stool 07/07/2023 12:3 8 AM EDT 07/07/2023 7:56 AM EDT Narrative Resulting Agency Comment Spec In Lab Ailyn Irvin MD MICROBIOLOGY - GENER AL ORDERABLES [facility] [place] [address] * Hepatic Function Panel (07/06/2023 3:41 PM EDT) Protein, Total 7.6 6.1 - 8.0 g/dL [facility] Albumin 4.3 3.2 - 5.2 g/dL [facility] Aspartate Aminotransferase 20 0 - 30 unit/L [facility] Alanine Aminotransferase 22 0 - 30 unit/L [facility] Alkaline Phosphatase 58 35 - 105 unit/L [facility] Bilirubin, Total 0.4 0.2 - 1.3 mg/dL [facility] Bilirubin, Direct 0.1 0.0 - 0.3 mg/dL [facility] Blood 07/06/2023 3:41 PM EDT 07/06/2023 4:00 PM EDT Narrative Resulting Agency Comment Spec In Lab Terrence Keating MD CHEMISTRY ORDERABLES Performing Organization Address City/[facility]/ZIP Co de Phone Number [facility] [place] [place] [address] * Hepatic Function Panel (07/06/2023 3:54 AM EDT) Protein, Total 7.6 6.1 - 8.0 g/dL [facility] Albumin 4.3 3.2 - 5.2 g/dL [facility] Aspartate Aminotransferase Not Perf 0 - 30 [facility] Comment: Unable to quantitate due to sample hemolysis. ??Sample redraw suggested. Called by: abimbola, Read back by: Ana Paula Borja, Date/Time:07/06/23 14:08. Alanine Aminotransferase 25 0 - 30 unit/L [facility] Alkaline Phosphatase 58 35 - 105 unit/L [facility] Bilirubin, Total 0.4 0.2 - 1.3 mg/dL [facility] Bilirubin, Direct Not Perf 0.0 - 0.3 [facility] Blood Venous Draw / Unknown 07/06/2023 3:54 AM EDT 07/06/2023 4:18 AM EDT Narrative Resulting Agency Comment Spec In Lab Terrence Keating MD CHEMISTRY ORDERABLES [facility] [place] [place] [address] * (ABNORMAL) Differential, Automated (07/06/2023 3:54 AM EDT) Neutrophil % 56.6 % [facility] Neutrophil Absolute 4.34 1.70 - 6.10 x10(3)/mc L [facility] Lymph % 26.1 % [facility] Lymphocytes Abs 2.0 0.9 - 3.2 x10(3)/mc L [facility] Monocyte % 9.6 % [facility] Monocyte Abs 0.7 0.3 - 0.9 x10(3)/mc L [facility] Eos % 6.6 % [facility] Eosinophils Abs 0.5(H) 0.0 - 0.4 x10(3)/mc L [facility] Basophil % 0.7 % [facility] Baso Absolute 0.0 0.0 - 0.1 x10(3)/mc L [facility] [...] Absolute 0.03 0.00 - 0.04 x10(3)/mc L [facility] Blood 07/06/2023 3:54 AM EDT 07/06/2023 4:12 AM EDT Narrative Resulting Agency Comment Spec In Lab Terrence Keating MD HEMATOLOGY ORDERABLE S [facility] [place] [address] * (ABNORMAL) Hemogram (07/06/2023 3:54 AM EDT) White Blood Cell 7.7 4.0 - 9.5 x10(3)/mc L [facility] Red Blood Cell 4.62 4.00 - 5.21 x10(6)/mc L [facility] Hemoglobin 14.7 11.7 - 15.5 g/dL [facility] Hematocrit 43.8 35.7 - 45.8 % [facility] Mean Cell Volume 94.8(H) 82.6 - 94.4 fL [facility] Mean Cell Hemoglobin 31.8 27.1 - 32.0 pg [facility] Mean Cell Hemoglobin Concentration 33.6 31.7 - 35.0 g/dL [facility] Platelet 243 145 - 357 x10(3)/mc L [facility] RDW Standard Deviation 47.2(H) 37.0 - 46.0 fL [facility] RDW coefficient of variation 13.5 11.5 - 14.1 % [facility] Mean Platelet Volume 10.4 7.6 - 12.9 fL [facility] NRBC% auto 0.0 % [facility] NRBC Absolute 0.000 0.000 - 0.000 x10(3)/mc L [facility] Blood 07/06/2023 3:54 AM EDT 07/06/2023 4:12 AM EDT Narrative Resulting Agency Comment Spec In Lab Terrence Keating MD HEMATOLOGY ORDERABLE S [facility] [place] [address] * (ABNORMAL) Basic Metabolic Panel (non-fasting) (07/06/2023 3:54 AM EDT) Glucose 107 65 - 199 mg/dL [facility] Comment:Diabetes: >=200 mg/d L plus symptoms Blood Urea Nitrogen 16 8 - 18 mg/dL [facility] [...] mmol/L [facility] Carbon Dioxide 23 22 - 31 mmol/L [facility] Anion Gap 14 5 - 15 mmol/L [facility] Calcium 10.0 8.5 - 10.5 mg/dL [facility] Est Glomerular Filtration Rate 51(L) >=60 mL/min/1. 73 m?? [facility] [...] ORDERABL ES Performing Organization Address [facility] Co de Phone Number [facility] [place] [address] * Phosphorus (07/06/2023 3:54 AM EDT) Phosphorus 4.5 2.5 - 4.5 mg/dL [facility] Blood 07/06/2023 3:54 AM EDT 07/06/2023 4:18 AM EDT Narrative Resulting Agency Comment Spec In Lab Eufemia Copeland MD CHEMISTRY ORDERABL ES Performing Organization Address [facility] Co de Phone Number [facility] [place] [address] * Magnesium (07/06/2023 3:54 AM EDT) Magnesium 0.97 0.69 - 1.07 mmol/L [facility] Blood 07/06/2023 3:54 AM EDT 07/06/2023 4:18 AM EDT Narrative Resulting Agency Comment Spec In Lab Eufemia Copeland MD CHEMISTRY ORDERABL ES Performing Organization Address [facility] Co de Phone Number [facility] [place] [address] * Heparin (unfractionated) Level (07/06/2023 3:54 AM [...] MD HEMATOLOGY ORDERABLE S Performing Organization Address City/[facility]/ZIP Co de Phone Number [facility] [place] [address] * Amylase (07/05/2023 5:44 PM EDT) Amylase 35 28 - 100 unit/L [facility] Blood 07/05/2023 5:44 PM EDT 07/05/2023 6:00 PM EDT Narrative Resulting Agency Comment Spec In Lab Terrence Keating MD CHEMISTRY ORDERABLES Performing Organization Address [facility] Co de Phone Number [facility] [place] [address] * Lipase (07/05/2023 5:44 PM EDT) Lipase 17 0 - 60 unit/L [facility] Blood 07/05/2023 5:44 PM EDT 07/05/2023 6:00 PM EDT Narrative Resulting Agency Comment Spec In Lab Terrence Keating MD CHEMISTRY ORDERABLES Performing Organization Address [facility]/ZIP Co de Phone Number [facility] [place] [address] * (ABNORMAL) Basic Metabolic Panel (non-fasting) (07/05/2023 5:44 PM EDT) Glucose 130 65 - 199 mg/dL [facility] Comment:Diabetes: >=200 mg/d L plus symptoms Blood Urea Nitrogen 17 8 - 18 mg/dL [facility] [...] mmol/L [facility] Carbon Dioxide 21(L) 22 - 31 mmol/L [facility] Anion Gap 15 5 - 15 mmol/L [facility] Calcium 9.6 8.5 - 10.5 mg/dL [facility] Est Glomerular Filtration Rate 49(L) >=60 mL/min/1. 73 m?? [facility] [...] MD CHEMISTRY ORDERABLES [facility] [place] [address] * Duplex Study Visceral Arteries, Comp (07/05/2023 9:46 AM EDT) VB Text Report Department: Vascular Surgery Lab Patient: [id number] (LOIDA ROQUE) CPT: [id number] Referring Physician: TERRENCE KEATING ?? Phone: Indications: [...] ?Bi-Triphasic ?101 ?11 ?? Hepatic Artery ? Christian-Biphasic ? 123 ?23 ?? Splenic Artery ? Christian-Biphasic ? 122 ?24 ?? Inf Mes Artery [...] 5:05 AM EDT) Neutrophil % 63.0 % [facility] Neutrophil Absolute 5.59 1.70 - 6.10 x10(3)/[facility] Lymph % 22.4 % [facility] Lymphocytes Abs 2.0 0.9 - 3.2 x10(3)/[facility] Monocyte % 9.7 % [facility] Monocyte Abs 0.9 0.3 - 0.9 x10(3)/[facility] Eos % 4.1 % [facility] Eosinophils Abs 0.4 0.0 - 0.4 x10(3)/[facility] Basophil % 0.6 % [facility] Baso Absolute 0.0 0.0 - 0.1 x10(3)/[facility] Immature Gran % 0.20 % [facility] Comment: Immature granulocytes(IG's)percentage and absolute count will include metamyelocytes, myelocytes, and promyelocytes. Blood smears from CBCs yielding IG's will be scanned manually for concordance. If this scan disagrees with the automated IG or if promyelocytes are noted, a manual differential will be performed. Immature Gran Absolute 0.02 0.00 - 0.04 x10(3)/mcL [facility] Blood 07/05/2023 5:05 AM EDT 07/05/2023 5:17 AM EDT Narrative Resulting Agency Comment Spec In Lab Terrence Keating MD HEMATOLOGY ORDERABLE S [facility] [place] [address] * (ABNORMAL) Hemogram (07/05/2023 5:05 AM EDT) White Blood Cell 8.9 4.0 - 9.5 x10(3)/mc L [facility] Red Blood Cell 4.42 4.00 - 5.21 x10(6)/mc L [facility] Hemoglobin 13.7 11.7 - 15.5 g/dL [facility] Hematocrit 41.4 35.7 - 45.8 % [facility] Mean Cell Volume 93.7 82.6 - 94.4 fL [facility] Mean Cell Hemoglobin 31.0 27.1 - 32.0 pg [facility] Mean Cell Hemoglobin Concentration 33.1 31.7 - 35.0 g/dL [facility] Platelet 245 145 - 357 x10(3)/mc L [facility] RDW Standard Deviation 47.1(H) 37.0 - 46.0 fL [facility] RDW coefficient of variation 13.7 11.5 - 14.1 % [facility] Mean Platelet Volume 10.8 7.6 - 12.9 fL [facility] NRBC% auto 0.0 % [facility] NRBC Absolute 0.000 0.000 - 0.000 x10(3)/mc L [facility] Blood 07/05/2023 5:05 AM EDT 07/05/2023 5:17 AM EDT Narrative Resulting Agency Comment Spec In Lab Terrence Keating MD HEMATOLOGY ORDERABLE S Performing Organization Address City/[facility]/ZIP Co de Phone Number [facility] [place] [address] * Heparin (unfractionated) Level (07/05/2023 5:05 AM [...] MD HEMATOLOGY ORDERABLE S Performing Organization Address City/[facility]/ZIP Co de Phone Number [facility] [place] [address] * (ABNORMAL) Basic Metabolic Panel (non-fasting) (07/05/2023 5:05 AM EDT) Glucose 114 65 - 199 mg/dL [facility] Comment:Diabetes: >=200 mg/d L plus symptoms Blood Urea Nitrogen 19(H) 8 - 18 mg/dL [facility] [...] mmol/L [facility] Carbon Dioxide 25 22 - 31 mmol/L [facility] Anion Gap 12 5 - 15 mmol/L [facility] Calcium 10.0 8.5 - 10.5 mg/dL [facility] Est Glomerular Filtration Rate 41(L) >=60 mL/min/1. 73 m?? [facility] [...] CHEMISTRY ORDERABL ES [facility] [place] [address] * (ABNORMAL) Phosphorus (07/05/2023 5:05 AM EDT) Phosphorus 5.0(H) 2.5 - 4.5 mg/dL [facility] Blood 07/05/2023 5:05 AM EDT 07/05/2023 5:17 AM EDT Narrative Resulting Agency Comment Spec In Lab Eufemia Copeland MD CHEMISTRY ORDERABL ES Performing Organization Address [facility] Co de Phone Number [facility] [place] [address] * Magnesium (07/05/2023 5:05 AM EDT) Magnesium 1.01 0.69 - 1.07 mmol/L [facility] Blood 07/05/2023 5:05 AM EDT 07/05/2023 5:17 AM EDT Narrative Resulting Agency Comment Spec In Lab Eufemia Copeland MD CHEMISTRY ORDERABL ES Performing Organization Address [facility] Co de Phone Number [facility] [place] [address] * EKG 12 Lead (07/04/2023 11:41 AM EDT) Ventricular rate 76 BPM MUSE SYSTEM Atrial Rate 76 BPM MUSE SYSTEM P-R Interval 174 ms MUSE SYSTEM QRS Duration 88 ms MUSE SYSTEM Q-T Interval 450 ms MUSE SYSTEM QTC Calculated (Bezet) 506 ms MUSE SYSTEM Calculated P Rea 36 degrees MUSE SYSTEM Calculated R Rea 35 degrees MUSE SYSTEM Calculated T Rea 37 degrees MUSE SYSTEM INTERPRETATION Normal sinus [...] Beck MD ECG ORDERABLES Performing Organization Address City/[facility]/ZIP Co de Phone Number MUSE SYSTEM * Differential, Automated (07/04/2023 3:47 AM EDT) Neutrophil % 63.5 % [facility] Neutrophil Absolute 5.19 1.70 - 6.10 x10(3)/[facility] Lymph % 24.4 % [facility] Lymphocytes Abs 2.0 0.9 - 3.2 x10(3)/[facility] Monocyte % 8.1 % [facility] Monocyte Abs 0.7 0.3 - 0.9 x10(3)/[facility] Eos % 3.4 % [facility] Eosinophils Abs 0.3 0.0 - 0.4 x10(3)/[facility] Basophil % 0.4 % [facility] Baso Absolute 0.0 0.0 - 0.1 x10(3)/[facility] Immature Gran % 0.20 % [facility] [...] x10(3)/[facility] Blood 07/04/2023 3:47 AM EDT 07/04/2023 4:15 AM EDT Narrative Resulting Agency Comment Spec In Lab Terrence Keating MD HEMATOLOGY ORDERABLE S [facility] [place] [address] * (ABNORMAL) Hemogram (07/04/2023 3:47 AM EDT) White Blood Cell 8.2 4.0 - 9.5 x10(3)/[facility] Red Blood Cell 4.26 4.00 - 5.21 x10(6)/mc L [facility] Hemoglobin 13.5 11.7 - 15.5 g/dL [facility] Hematocrit 40.0 35.7 - 45.8 % [facility] Mean Cell Volume 93.9 82.6 - 94.4 fL [facility] Mean Cell Hemoglobin 31.7 27.1 - 32.0 pg [facility] Mean Cell Hemoglobin Concentration 33.8 31.7 - 35.0 g/dL [facility] Platelet 219 145 - 357 x10(3)/mc L [facility] RDW Standard Deviation 47.0(H) 37.0 - 46.0 fL [facility] RDW coefficient of variation 13.7 11.5 - 14.1 % [facility] Mean Platelet Volume 11.0 7.6 - 12.9 fL [facility] NRBC% auto 0.0 % [facility] NRBC Absolute 0.000 0.000 - 0.000 x10(3)/mc L [facility] Blood 07/04/2023 3:47 AM EDT 07/04/2023 4:15 AM EDT Narrative Resulting Agency Comment Spec In Lab Terrence Keating MD HEMATOLOGY ORDERABLE S Performing Organization Address City/State/[facility] Co de Phone Number [facility] [place] [address] * Heparin (unfractionated) Level (07/04/2023 3:47 AM EDT) UF Heparin 0.44 IU/mL [place] HEMATOLOGY ORDERABLE S [facility] [place] [address] * (ABNORMAL) Basic Metabolic Panel (non-fasting) (07/04/2023 3:47 AM EDT) Glucose 104 65 - 199 mg/dL [facility] Comment:Diabetes: >=200 mg/d L plus symptoms Blood Urea Nitrogen 16 8 - 18 mg/dL [facility] [...] mmol/L [facility] Carbon Dioxide 21(L) 22 - 31 mmol/L [facility] Anion Gap 16(H) 5 - 15 mmol/L [facility] Calcium 9.5 8.5 - 10.5 mg/dL [facility] Est Glomerular Filtration Rate 50(L) >=60 mL/min/1. 73 m?? [facility] [...] ORDERABL ES Performing Organization Address [facility] Co de Phone Number [facility] [place] [address] * (ABNORMAL) Phosphorus (07/04/2023 3:47 AM EDT) Phosphorus 4.9(H) 2.5 - 4.5 mg/dL [facility] Blood 07/04/2023 3:47 AM EDT 07/04/2023 4:15 AM EDT Narrative Resulting Agency Comment Spec In Lab Eufemia Copeland MD CHEMISTRY ORDERABL ES Performing Organization Address [facility] Co de Phone Number [facility] [place] [address] * Magnesium (07/04/2023 3:47 AM EDT) Magnesium 1.05 0.69 - 1.07 mmol/L [facility] Blood 07/04/2023 3:47 AM EDT 07/04/2023 4:15 AM EDT Narrative Resulting Agency Comment Spec In Lab Eufemia Copeland MD CHEMISTRY ORDERABL ES Performing Organization Address [facility] Co de Phone Number [facility] [place] [place] [address] * EKG 12 Lead (07/03/2023 9:36 PM EDT) Ventricular rate 61 BPM MUSE SYSTEM Atrial Rate 61 BPM MUSE SYSTEM P-R Interval 188 ms MUSE SYSTEM QRS Duration 88 ms MUSE SYSTEM Q-T Interval 512 ms MUSE SYSTEM QTC Calculated (Bezet) 515 ms MUSE SYSTEM Calculated P Rea 56 degrees MUSE SYSTEM Calculated R Rea 69 degrees MUSE SYSTEM Calculated T Rea 29 degrees MUSE SYSTEM INTERPRETATION Normal sinus [...] Healthcare Magnesium 0.89 0.69 - 1.07 mmol/L [facility] Blood 07/03/2023 6:00 PM EDT 07/03/2023 6:07 PM EDT Narrative Resulting Agency Comment Spec In Lab Lino Calles MD CHEMISTRY ORDERABLES [facility] [place] [address] * (ABNORMAL) Basic Metabolic Panel (non-fasting) (07/03/2023 6:00 PM EDT) Pathologist [facility] Glucose 116 65 - 199 mg/dL [facility] Comment:Diabetes: >=200 mg/d L plus symptoms Blood Urea Nitrogen 16 8 - 18 mg/dL [facility] [...] mmol/L [facility] Carbon Dioxide 21(L) 22 - 31 mmol/L [facility] Anion Gap 14 5 - 15 mmol/L [facility] Calcium 9.5 8.5 - 10.5 mg/dL [facility] Est Glomerular Filtration Rate 46(L) >=60 mL/min/1. 73 m?? [facility] [...] MD CHEMISTRY ORDERABLES [facility] [place] [address] * XR Chest One View (07/03/2023 3:18 PM EDT) WORKSTATION ID [id number] RAD Anatomical Region Laterality Modality Chest N/A [...] care aid that requested your imaging first. Lino Calles MD IMG DX ORDERABLES * Arterial Duplex Leg, Unil (07/03/2023 9:34 AM EDT) VB Text Report Department: Vascular Surgery Lab Patient: [id number] (LOIDA ROQUE) CPT: [id number] Referring Physician: LINO CALLES ?? Phone: Indications: [...] 3:07 AM EDT) Neutrophil % 67.2 % [facility] Neutrophil Absolute 5.51 1.70 - 6.10 x10(3)/mcL [facility] Lymph % 20.7 % [facility] Lymphocytes Abs 1.7 0.9 - 3.2 x10(3)/[facility] Monocyte % 7.7 % [facility] Monocyte Abs 0.6 0.3 - 0.9 x10(3)/[facility] Eos % 3.7 % [facility] Eosinophils Abs 0.3 0.0 - 0.4 x10(3)/[facility] Basophil % 0.5 % [facility] Baso Absolute 0.0 0.0 - 0.1 x10(3)/[facility] Immature Gran % 0.20 % [facility] [...] x10(3)/[facility] Blood 07/03/2023 3:07 AM EDT 07/03/2023 3:15 AM EDT Narrative Resulting Agency Comment Spec In Lab Terrence Keating MD HEMATOLOGY ORDERABLE S Performing Organization Address City/State/[facility] Co de Phone Number [facility] [place] [address] * (ABNORMAL) Hemogram (07/03/2023 3:07 AM EDT) White Blood Cell 8.2 4.0 - 9.5 x10(3)/mc L [facility] Red Blood Cell 3.97(L) 4.00 - 5.21 x10(6)/mc L [facility] Hemoglobin 12.5 11.7 - 15.5 g/dL [facility] Hematocrit 38.5 35.7 - 45.8 % [facility] Mean Cell Volume 97.0(H) 82.6 - 94.4 fL [facility] Mean Cell Hemoglobin 31.5 27.1 - 32.0 pg [facility] Mean Cell Hemoglobin Concentration 32.5 31.7 - 35.0 g/dL [facility] Platelet 203 145 - 357 x10(3)/mc L [facility] RDW Standard Deviation 49.6(H) 37.0 - 46.0 fL [facility] RDW coefficient of variation 13.7 11.5 - 14.1 % [facility] Mean Platelet Volume 10.8 7.6 - 12.9 fL [facility] NRBC% auto 0.0 % [facility] NRBC Absolute 0.000 0.000 - 0.000 x10(3)/mc L [facility] Blood 07/03/2023 3:07 AM EDT 07/03/2023 3:15 AM EDT Narrative Resulting Agency Comment Spec In Lab Terrence Keating MD HEMATOLOGY ORDERABLE S [facility] [place] [address] * Heparin (unfractionated) Level (07/03/2023 3:07 AM [...] Narrative Resulting Agency Comment Spec In Lab Aiyln Irvin MD HEMATOLOGY ORDERABLE S [facility] [place] [address] * (ABNORMAL) Basic Metabolic Panel (non-fasting) (07/03/2023 3:07 AM EDT) Glucose 104 65 - 199 mg/dL [facility] Comment:Diabetes: >=200 mg/d L plus symptoms Blood Urea Nitrogen 16 8 - 18 mg/dL [facility] [...] mmol/L [facility] Carbon Dioxide 20(L) 22 - 31 mmol/L [facility] Anion Gap 11 5 - 15 mmol/L [facility] Calcium 8.8 8.5 - 10.5 mg/dL [facility] Est Glomerular Filtration Rate 54(L) >=60 mL/min/1. 73 m?? [facility] [...] ORDERABL ES Performing Organization Address [facility] Co de Phone Number [facility] [place] [address] * Phosphorus (07/03/2023 3:07 AM EDT) Phosphorus 3.6 2.5 - 4.5 mg/dL [facility] Blood 07/03/2023 3:07 AM EDT 07/03/2023 3:15 AM EDT Narrative Resulting Agency Comment Spec In Lab Eufemia Copeland MD CHEMISTRY ORDERABL ES Performing Organization Address [facility] Co de Phone Number [facility] [place] [address] * Magnesium (07/03/2023 3:07 AM EDT) Magnesium 0.93 0.69 - 1.07 mmol/L [facility] Blood 07/03/2023 3:07 AM EDT 07/03/2023 3:15 AM EDT Narrative Resulting Agency Comment Spec In Lab Eufemia Copeland MD CHEMISTRY ORDERABL ES Performing Organization Address [facility] Co de Phone Number [facility] [place] [address] * Heparin (unfractionated) Level (07/02/2023 8:58 PM [...] Lab Lino Calles MD HEMATOLOGY ORDERABLE S [facility] [place] [address] * VS Arteriogram Mesenteric Vascular Surgery (07/02/2023 [...] anesthetic: 10 cc 1% lidocaine Heparin: Yes [id number] ?? Units Protamine: No ??mg Antibiotics: Ancef [...] We exchanged the sheath for a 7 Cymraes steward/stewardess tourist class steerable sheath over a stiff wire. ??A Glidewire and Kumpe catheter were used to selectively cannulate the superior mesenteric artery. ??Direct angiography of the superior mesenteric artery was performed, confirming the results of the nonselective aortography performed. ??The lesion was predilated with a 4 mm x 40 mm Latonia balloon, and then a 6 mm X [...] MD 07/07/2023 10:48 AM Ailyn Irvin MD [facility] IR ORDERABLES * Differential, Automated (07/02/2023 3:58 AM EDT) Neutrophil % 61.3 % [facility] LABORATORY Neutrophil Absolute 4.67 1.70 - 6.10 x10(3)/[facility] LABORATORY Lymph % 27.6 % [facility] Lymphocytes Abs 2.1 0.9 - 3.2 x10(3)/[facility] LABORATORY Monocyte % 6.4 % [facility] LABORATORY Monocyte Abs 0.5 0.3 - 0.9 x10(3)/[facility] LABORATORY Eos % 3.9 % [facility] Eosinophils Abs 0.3 0.0 - 0.4 x10(3)/[facility] LABORATORY Basophil % 0.5 % [facility] LABORATORY Baso Absolute 0.0 0.0 - 0.1 x10(3)/[facility] LABORATORY Immature Gran % 0.30 % [facility] [...] x10(3)/[facility] LABORATORY Blood 07/02/2023 3:58 AM EDT 07/02/2023 4:14 AM EDT Narrative Resulting Agency Comment Spec In Lab Terrence Keating MD HEMATOLOGY ORDERABLE S [facility] [place] [place] [address] * (ABNORMAL) Hemogram (07/02/2023 3:58 AM EDT) White Blood Cell 7.6 4.0 - 9.5 x10(3)/mc L [facility] Red Blood Cell 4.12 4.00 - 5.21 x10(6)/ L [facility] Hemoglobin 12.9 11.7 - 15.5 g/dL [facility] Hematocrit 39.5 35.7 - 45.8 % [facility] Mean Cell Volume 95.9(H) 82.6 - 94.4 fL [facility] Mean Cell Hemoglobin 31.3 27.1 - 32.0 pg [facility] Mean Cell Hemoglobin Concentration 32.7 31.7 - 35.0 g/dL [facility] Platelet 200 145 - 357 x10(3)/mc L [facility] RDW Standard Deviation 47.4(H) 37.0 - 46.0 fL [facility] RDW coefficient of variation 13.3 11.5 - 14.1 % [facility] Mean Platelet Volume 10.8 7.6 - 12.9 fL [facility] NRBC% auto 0.0 % [facility] NRBC Absolute 0.000 0.000 - 0.000 x10(3)/mc L [facility] Blood 07/02/2023 3:58 AM EDT 07/02/2023 4:14 AM EDT Narrative Resulting Agency Comment Spec In Lab Terrence Keating MD HEMATOLOGY ORDERABLE S [facility] [place] [place] [address] * Heparin (unfractionated) Level (07/02/2023 3:58 AM [...] HEMATOLOGY ORDERABLE S [facility] [place] [place] [address] * (ABNORMAL) Basic Metabolic Panel (non-fasting) (07/02/2023 3:58 AM EDT) Glucose 96 65 - 199 mg/dL [facility] Comment:Diabetes: >=200 mg/d L plus symptoms Blood Urea Nitrogen 15 8 - 18 mg/dL [facility] [...] mmol/L [facility] Carbon Dioxide 21(L) 22 - 31 mmol/L [facility] Anion Gap 8 5 - 15 mmol/L [facility] Calcium 8.8 8.5 - 10.5 mg/dL [facility] Est Glomerular Filtration Rate 53(L) >=60 mL/min/1. 73 m?? [facility] [...] ORDERABL ES Performing Organization Address [facility] Co de Phone Number [facility] [place] [place] [address] * Phosphorus (07/02/2023 3:58 AM EDT) Phosphorus 3.8 2.5 - 4.5 mg/dL [facility] Blood 07/02/2023 3:58 AM EDT 07/02/2023 4:14 AM EDT Narrative Resulting Agency Comment Spec In Lab Eufemia Copeland MD CHEMISTRY ORDERABL ES Performing Organization Address [facility] de Phone Number [facility] [place] [place] [address] * Magnesium (07/02/2023 3:58 AM EDT) Magnesium 0.95 0.69 - 1.07 mmol/L [facility] Blood 07/02/2023 3:58 AM EDT 07/02/2023 4:14 AM EDT Narrative Resulting Agency Comment Spec In Lab Eufemia Copeland MD CHEMISTRY ORDERABL ES Performing Organization Address [facility] Co de Phone Number [facility] [place] [place] [address] * EKG 12 Lead (07/01/2023 12:08 PM EDT) Ventricular rate 48 BPM MUSE SYSTEM Atrial Rate 48 BPM MUSE SYSTEM P-R Interval 192 ms MUSE SYSTEM QRS Duration 92 ms MUSE SYSTEM Q-T Interval 474 ms MUSE SYSTEM QTC Calculated (Bezet) 423 ms MUSE SYSTEM Calculated P Rea 32 degrees MUSE SYSTEM Calculated R Rea 45 degrees MUSE SYSTEM Calculated T Rea 0 degrees MUSE SYSTEM INTERPRETATION Sinus bradycardia [...] 2:56 AM EDT) Neutrophil % 50.5 % [facility] Neutrophil Absolute 3.47 1.70 - 6.10 x10(3)/[facility] LABORATORY Lymph % 36.5 % [facility] Lymphocytes Abs 2.5 0.9 - 3.2 x10(3)/[facility] LABORATORY Monocyte % 7.7 % [facility] LABORATORY Monocyte Abs 0.5 0.3 - 0.9 x10(3)/[facility] LABORATORY Eos % 4.5 % [facility] Eosinophils Abs 0.3 0.0 - 0.4 x10(3)/[facility] LABORATORY Basophil % 0.7 % [facility] LABORATORY Baso Absolute 0.0 0.0 - 0.1 x10(3)/[facility] LABORATORY Immature Gran % 0.10 % [facility] [...] x10(3)/[facility] LABORATORY Blood 07/01/2023 2:56 AM EDT 07/01/2023 3:22 AM EDT Narrative Resulting Agency Comment Spec In Lab Terrence Keating MD HEMATOLOGY ORDERABLE S [facility] [place] [place] [address] * (ABNORMAL) Hemogram (07/01/2023 2:56 AM EDT) White Blood Cell 6.9 4.0 - 9.5 x10(3)/[facility] LABORATORY Red Blood Cell 4.04 4.00 - 5.21 x10(6)/[facility] LABORATORY Hemoglobin 12.8 11.7 - 15.5 g/dL [facility] Hematocrit 39.0 35.7 - 45.8 % [facility] Mean Cell Volume 96.5(H) 82.6 - 94.4 fL [facility] Mean Cell Hemoglobin 31.7 27.1 - 32.0 pg [facility] Mean Cell Hemoglobin Concentration 32.8 31.7 - 35.0 g/dL [facility] Platelet 224 145 - 357 x10(3)/[facility] LABORATORY RDW Standard Deviation 47.8(H) 37.0 - 46.0 [facility] LABORATORY RDW coefficient of variation 13.3 11.5 - 14.1 % [facility] Mean Platelet Volume 11.1 7.6 - 12.9 [facility] LABORATORY NRBC% auto 0.0 % [facility] LABORATORY NRBC Absolute 0.000 0.000 - 0.000 x10(3)/ L [facility] Blood 07/01/2023 2:56 AM EDT 07/01/2023 3:22 AM EDT Narrative Resulting Agency Comment Spec In Lab Terrence Keating MD HEMATOLOGY ORDERABLE S Performing Organization Address [facility]/ZIP Co de Phone Number [facility] [place] [place] [address] * Heparin (unfractionated) Level (07/01/2023 2:56 AM EDT) Pathologist [facility] UF Heparin 0.56 IU/mL [place] ORDERABLE S Performing Organization Address [facility]/ZIP Co de Phone Number [facility] [place] [place] [address] * (ABNORMAL) Basic Metabolic Panel (non-fasting) (07/01/2023 2:56 AM EDT) [facility] Glucose 95 65 - 199 mg/dL [facility] Comment:Diabetes: >=200 mg/d L plus symptoms Blood Urea Nitrogen 16 8 - 18 mg/dL [facility] [...] Filtration Rate 53(L) >=60 mL/min/1. 73 m?? [facility] [...] ORDERABL ES Performing Organization Address [facility] Co de Phone Number [facility] [place] [address] * Phosphorus (07/01/2023 2:56 AM EDT) Phosphorus 4.1 2.5 - 4.5 mg/dL [facility] Blood 07/01/2023 2:56 AM EDT 07/01/2023 3:22 AM EDT Narrative Resulting Agency Comment Spec In Lab Eufemia Copeland MD CHEMISTRY ORDERABL ES Performing Organization Address City/[facility]/ZIP Co de Phone Number [facility] [place] [place] [address] * Magnesium (07/01/2023 2:56 AM EDT) [facility] Magnesium 0.95 0.69 - 1.07 mmol/L [facility] Blood 07/01/2023 2:56 AM EDT 07/01/2023 3:22 AM EDT Narrative Resulting Agency Comment Spec In Lab Eufemia Copeland MD CHEMISTRY ORDERABL ES Performing Organization Address [facility]/ZIP Co de Phone Number [facility] [place] [place] [address] * Heparin (unfractionated) Level (06/30/2023 9:24 AM EDT) [facility] UF Heparin 0.62 IU/mL [place] MD HEMATOLOGY ORDERABLE S Performing Organization Address City/[facility]/ZIP Co de Phone Number [facility] [place] [place] [address] * Differential, Automated (06/30/2023 3:14 AM EDT) Pathologist [facility] Neutrophil % 49.5 % [facility] Neutrophil Absolute 3.96 1.70 - 6.10 x10(3)/mcL [facility] Lymph % 36.6 % [facility] Lymphocytes Abs 2.9 0.9 - 3.2 x10(3)/[facility] LABORATORY Monocyte % 8.6 % [facility] LABORATORY Monocyte Abs 0.7 0.3 - 0.9 x10(3)/[facility] LABORATORY Eos % 4.1 % [facility] Eosinophils Abs 0.3 0.0 - 0.4 x10(3)/[facility] LABORATORY Basophil % 0.8 % [facility] LABORATORY Baso Absolute 0.1 0.0 - 0.1 x10(3)/[facility] LABORATORY Immature Gran % 0.40 % [facility] [...] x10(3)/[facility] LABORATORY Blood 06/30/2023 3:14 AM EDT 06/30/2023 3:23 AM EDT Narrative Resulting Agency Comment Spec In Lab Terrence Keating MD HEMATOLOGY ORDERABLE S [facility] [place] [place] [address] * Hemogram (06/30/2023 3:14 AM EDT) White Blood Cell 8.0 4.0 - 9.5 x10(3)/[facility] LABORATORY Red Blood Cell 4.22 4.00 - 5.21 x10(6)/[facility] LABORATORY Hemoglobin 13.1 11.7 - 15.5 g/dL [facility] Hematocrit 39.5 35.7 - 45.8 % [facility] Mean Cell Volume 93.6 82.6 - 94.4 fL [facility] Mean Cell Hemoglobin 31.0 27.1 - 32.0 pg [facility] Mean Cell Hemoglobin Concentration 33.2 31.7 - 35.0 g/dL [facility] Platelet 235 145 - 357 x10(3)/[facility] LABORATORY RDW Standard Deviation 45.3 37.0 - 46.0 fL [facility] RDW coefficient of variation 13.3 11.5 - 14.1 % [facility] Mean Platelet Volume 11.0 7.6 - 12.9 fL [facility] NRBC% auto 0.0 % [facility] NRBC Absolute 0.000 0.000 - 0.000 x10(3)/[facility] LABORATORY Blood 06/30/2023 3:14 AM EDT 06/30/2023 3:23 AM EDT Narrative Resulting Agency Comment Spec In Lab Terrence Keating MD HEMATOLOGY ORDERABLE S [facility] [place] [place] [address] * Heparin (unfractionated) Level (06/30/2023 3:14 AM [...] HEMATOLOGY ORDERABLE S [facility] [place] [place] [address] * (ABNORMAL) Basic Metabolic Panel (non-fasting) (06/30/2023 3:14 AM EDT) Glucose 103 65 - 199 mg/dL [facility] [...] mmol/L [facility] Carbon Dioxide 23 22 - 31 mmol/L [facility] Anion Gap 10 5 - 15 mmol/L [facility] Calcium 9.1 8.5 - 10.5 mg/dL [facility] Est Glomerular Filtration Rate 53(L) >=60 mL/min/1. 73 m?? [facility] [...] ORDERABL ES Performing Organization Address [facility] de Phone Number [facility] [place] [place] [address] * Phosphorus (06/30/2023 3:14 AM EDT) Phosphorus 4.4 2.5 - 4.5 mg/dL [facility] Blood 06/30/2023 3:14 AM EDT 06/30/2023 3:23 AM EDT Narrative Resulting Agency Comment Spec In Lab Eufemia Copeland MD CHEMISTRY ORDERABL ES Performing Organization Address [facility] Phone Number [facility] [place] [place] [address] * Magnesium (06/30/2023 3:14 AM EDT) Magnesium 0.94 0.69 - 1.07 mmol/L [facility] Blood 06/30/2023 3:14 AM EDT 06/30/2023 3:23 AM EDT Narrative Resulting Agency Comment Spec In Lab Eufemia Copeland MD CHEMISTRY ORDERABL ES Performing Organization Address [facility] de Phone Number [facility] [place] [place] [address] * Heparin (unfractionated) Level (06/29/2023 8:47 PM [...] ORDERABLE S Performing Organization Address [facility] Co de Phone Number [facility] [place] [place] [address] * EKG 12 Lead (06/29/2023 12:55 PM EDT) Ventricular rate 53 BPM MUSE SYSTEM Atrial Rate 53 BPM MUSE SYSTEM P-R Interval 196 ms MUSE SYSTEM QRS Duration 90 ms MUSE SYSTEM Q-T Interval 564 ms MUSE SYSTEM QTC Calculated (Bezet) 529 ms MUSE SYSTEM Calculated P Rea 30 degrees MUSE SYSTEM Calculated R Rea 53 degrees MUSE SYSTEM Calculated T Rea 5 degrees MUSE SYSTEM INTERPRETATION Sinus bradycardia Marked ST abnormality, possible inferior subendocardial injury Prolonged QT Abnormal ECG When compared with ECG of 26-JUN-2023 06:04, Nonspecific T wave abnormality no longer evident in Anterolateral leads QT has lengthened Confirmed by MD Angelo Danette ([id number]) on 06/29/2023 8:34:43 PM MUSE SYSTEM 06/29/2023 12:5 5 PM EDT 06/29/2023 8:34 PM EDT Terrence Keating MD ECG ORDERABLES Performing Organization Address [facility] Co de Phone Number MUSE SYSTEM * (ABNORMAL) Heparin (unfractionated) Level (06/29/2023 11:34 AM EDT) UF Heparin 1.41(Crit ical) IU/mL [facility] [...] [facility] Co de Phone Number [facility] [place] [place] [address] * Differential, Automated (06/29/2023 2:39 AM EDT) Neutrophil % 53.8 % [facility] Neutrophil Absolute 4.46 1.70 - 6.10 x10(3)/[facility] LABORATORY Lymph % 33.5 % [facility] Lymphocytes Abs 2.8 0.9 - 3.2 x10(3)/[facility] LABORATORY Monocyte % 8.3 % [facility] Monocyte Abs 0.7 0.3 - 0.9 x10(3)/[facility] LABORATORY Eos % 3.5 % [facility] Eosinophils Abs 0.3 0.0 - 0.4 x10(3)/[facility] LABORATORY Basophil % 0.5 % [facility] Baso Absolute 0.0 0.0 - 0.1 x10(3)/[facility] LABORATORY Immature Gran % 0.40 % [facility] [...] x10(3)/[facility] LABORATORY Blood 06/29/2023 2:39 AM EDT 06/29/2023 3:33 AM EDT Narrative Resulting Agency Comment Spec In Lab Terrence Keating MD HEMATOLOGY ORDERABLE S [facility] [place] [place] [address] * Hemogram (06/29/2023 2:39 AM EDT) White Blood Cell 8.3 4.0 - 9.5 x10(3)/[facility] LABORATORY Red Blood Cell 4.19 4.00 - 5.21 x10(6)/[facility] LABORATORY Hemoglobin 13.2 11.7 - 15.5 g/dL [facility] Hematocrit 38.9 35.7 - 45.8 % [facility] Mean Cell Volume 92.8 82.6 - 94.4 fL [facility] Mean Cell Hemoglobin 31.5 27.1 - 32.0 pg [facility] Mean Cell Hemoglobin Concentration 33.9 31.7 - 35.0 g/dL [facility] Platelet 237 145 - 357 x10(3)/[facility] LABORATORY RDW Standard Deviation 45.3 37.0 - 46.0 fL [facility] RDW coefficient of variation 13.3 11.5 - 14.1 % [facility] Mean Platelet Volume 11.4 7.6 - 12.9 fL [facility] NRBC% auto 0.0 % [facility] NRBC Absolute 0.000 0.000 - 0.000 x10(3)/mcL [facility] Blood 06/29/2023 2:39 AM EDT 06/29/2023 3:33 AM EDT Narrative Resulting Agency Comment Spec In Lab Terrence Keating MD HEMATOLOGY ORDERABLE S Performing Organization Address City/[facility] Co de Phone Number [facility] [place] [place] [address] * (ABNORMAL) Heparin (unfractionated) Level (06/29/2023 2:39 AM EDT) UF Heparin 1.77(Crit ical) IU/mL [facility] [...] MD HEMATOLOGY ORDERABLE S Performing Organization Address City/[facility]/ZIP Co de Phone Number [facility] [place] [place] [address] * (ABNORMAL) Basic Metabolic Panel (non-fasting) (06/29/2023 2:39 AM EDT) Glucose 100 65 - 199 mg/dL [facility] [...] Filtration Rate 55(L) >=60 mL/min/1. 73 m?? [facility] [...] CHEMISTRY ORDERABL ES [facility] [place] [id number] * Phosphorus (06/29/2023 2:39 AM EDT) Phosphorus 4.0 2.5 - 4.5 mg/dL [facility] Blood 06/29/2023 2:39 AM EDT 06/29/2023 3:33 AM EDT Narrative Resulting Agency Comment Spec In Lab Eufemia Copeland MD CHEMISTRY ORDERABL ES Performing Organization Address [facility] Co de Phone Number [facility] [place] [place] [address] * Magnesium (06/29/2023 2:39 AM EDT) Magnesium 0.92 0.69 - 1.07 mmol/L [facility] Blood 06/29/2023 2:39 AM EDT 06/29/2023 3:33 AM EDT Narrative Resulting Agency Comment Spec In Lab Eufemia Copeland MD CHEMISTRY ORDERABL ES Performing Organization Address [facility] Co de Phone Number [facility] [place] [address] * US Abdomen Limited (06/28/2023 12:22 PM EDT) WORKSTATION ID [id number] DH RAD Anatomical Region Laterality Modality Abdomen [...] have questions, please contact the health care aid that requested your imaging first. ?Sigrid Owens, [facility] V Belt Builder Electronically Signed Final Report ?? 06/28/2023 02:08 pm Narrative 06/28/2023 2:08 PM EDT Abdominal ? (Signed Final 06/28/2023 02:08 pm) PATIENT INFO: ID #: ? [id number] ?: ??[birth year] (53 yrs)(F) Name: ? LOIDA ?Visit Date: 06/28/2023 12:20 pm ? ROHAN PERFORMED BY: Attending: ?Graciela JOHN, Sigrid Munoz Resident: ? Karo JOHN, Rafaela Performed By: ? Rick STANFORD, ??Deena Referred By: ?AILYN IRVIN Location: ? [place] SERVICE(S) PROVIDED: UABDLIM - Abdominal Limited Survey Single ? [id number] Organ or Quadrant - [id number] INDICATIONS: RUQ pain, R/o Gall bladder colic, [...] 06/28/2023 02:08 pm) PATIENT INFO: ID #: [id number] : [birth year] (53 yrs)(F) Name: LOIDA Visit Date: 06/28/2023 12:20 pm ROHAN PERFORMED BY: Attending: Sigrid Owens MD Resident: Rafaela Huddleston MD Performed By: Deena Cabrera RDMS Referred By: AILYN IRVIN Location: [place] SERVICE(S) PROVIDED: UABDLIM - Abdominal Limited Survey Single [id number] Organ or Quadrant - [id number] INDICATIONS: RUQ pain, R/o Gall bladder colic, [...] have questions, please contact the health care aid that requested your imaging first. Sigrid Owens, [facility] V Belt Builder Electronically Signed Final Report 06/28/2023 02:08 pm Ailyn Irvin MD IMG GEN ORDERABLE S * Duplex Study Visceral Arteries, Comp (06/28/2023 10:19 AM EDT) Pathologist [facility] Text Report Department: Vascular Surgery Lab Patient: [id number] (LOIDA ROQUE) CPT: [id number] Referring Physician: HEIDY SULLIVAN ?? Indications: abdominal pain, ? patency/stenosi s Findings: Unilateral ? Waveform ? PSV cm/s ??EDV cm/s ??Patent ?? Dary Visceral Aorta ? 80 ?16 ? Celiac Artery, Proximal ??Christian-Biphasic ? 119 ?26 ? Celiac Artery, Mid ? Christian-Biphasic ? 115 ?21 ? Celiac Artery, Distal ? No Vis ?? Sup Mes Artery Proximal ??Biphasic ?427 ?91 ? Sup Mes Artery Middle ?Christian-Biphasic ? 100 ?17 ? Sup Mes Artery Distal ?Christian-Biphasic ?64 ?15 ? Hepatic Artery ?No Vis [...] 1:52 AM EDT) Neutrophil % 55.3 % [facility] Neutrophil Absolute 4.46 1.70 - 6.10 x10(3)/mcL [facility] Lymph % 30.6 % [facility] Lymphocytes Abs 2.5 0.9 - 3.2 x10(3)/[facility] LABORATORY Monocyte % 8.8 % [facility] Monocyte Abs 0.7 0.3 - 0.9 x10(3)/[facility] LABORATORY Eos % 4.6 % [facility] Eosinophils Abs 0.4 0.0 - 0.4 x10(3)/[facility] LABORATORY Basophil % 0.5 % [facility] Baso Absolute 0.0 0.0 - 0.1 x10(3)/[facility] LABORATORY Immature Gran % 0.20 % [facility] [...] x10(3)/[facility] LABORATORY Blood 06/28/2023 1:52 AM EDT 06/28/2023 2:05 AM EDT Narrative Resulting Agency Comment Spec In Lab Terrence Keating MD HEMATOLOGY ORDERABLE S [facility] [place] [place] [address] * Hemogram (06/28/2023 1:52 AM EDT) White Blood Cell 8.1 4.0 - 9.5 x10(3)/[facility] LABORATORY Red Blood Cell 4.30 4.00 - 5.21 x10(6)/[facility] LABORATORY Hemoglobin 13.4 11.7 - 15.5 g/dL [facility] Hematocrit 40.6 35.7 - 45.8 % [facility] Mean Cell Volume 94.4 82.6 - 94.4 fL [facility] Mean Cell Hemoglobin 31.2 27.1 - 32.0 pg [facility] Mean Cell Hemoglobin Concentration 33.0 31.7 - 35.0 g/dL [facility] Platelet 238 145 - 357 x10(3)/[facility] LABORATORY RDW Standard Deviation 45.7 37.0 - 46.0 fL [facility] RDW coefficient of variation 13.2 11.5 - 14.1 % [facility] Mean Platelet Volume 10.8 7.6 - 12.9 fL [facility] NRBC% auto 0.0 % [facility] NRBC Absolute 0.000 0.000 - 0.000 x10(3)/[facility] LABORATORY Blood 06/28/2023 1:52 AM EDT 06/28/2023 2:05 AM EDT Narrative Resulting Agency Comment Spec In Lab Terrence Keating MD HEMATOLOGY ORDERABLE S [facility] [place] [address] * (ABNORMAL) Basic Metabolic Panel (non-fasting) (06/28/2023 1:52 AM EDT) Glucose 101 65 - 199 mg/dL [facility] Comment:Diabetes: >=200 mg/d L plus symptoms Blood Urea Nitrogen 24(H) 8 - 18 mg/dL [facility] [...] mmol/L [facility] Carbon Dioxide 21(L) 22 - 31 mmol/L [facility] Anion Gap 12 5 - 15 mmol/L [facility] Calcium 9.0 8.5 - 10.5 mg/dL [facility] Est Glomerular Filtration Rate 53(L) >=60 mL/min/1. 73 m?? [facility] [...] ORDERABL ES Performing Organization Address [facility] Co de Phone Number [facility] [place] [place] [address] * Phosphorus (06/28/2023 1:52 AM EDT) Phosphorus 4.5 2.5 - 4.5 mg/dL [facility] Blood 06/28/2023 1:52 AM EDT 06/28/2023 2:05 AM EDT Narrative Resulting Agency Comment Spec In Lab Eufemia Copeland MD CHEMISTRY ORDERABL ES Performing Organization Address [facility]/ZIP Co de Phone Number [facility] [place] [address] * Magnesium (06/28/2023 1:52 AM EDT) Magnesium 0.93 0.69 - 1.07 mmol/L [facility] Blood 06/28/2023 1:52 AM EDT 06/28/2023 2:05 AM EDT Narrative Resulting Agency Comment Spec In Lab Eufemia Copeland MD CHEMISTRY ORDERABL ES [facility] [place] [place] [address] * (ABNORMAL) Basic Metabolic Panel (non-fasting) (06/27/2023 8:06 PM EDT) Glucose 94 65 - 199 mg/dL [facility] Comment:Diabetes: >=200 mg/d L plus symptoms Blood Urea Nitrogen 24(H) 8 - 18 mg/dL [facility] [...] Filtration Rate 50(L) >=60 mL/min/1. 73 m?? [facility] [...] Irvin MD CHEMISTRY ORDERABLES Performing Organization Address [facility]/ZIP Co de Phone Number [facility] [place] [address] * (ABNORMAL) Hepatic Function Panel (06/27/2023 4:34 AM EDT) [facility] Protein, Total 6.4 6.1 - 8.0 g/dL [facility] Albumin 3.8 3.2 - 5.2 g/dL [facility] Aspartate Aminotransferase 21 0 - 30 unit/L [facility] Alanine Aminotransferase 22 0 - 30 unit/L [facility] Alkaline Phosphatase 56 35 - 105 unit/L [facility] Bilirubin, Total <0.2(L) 0.2 - 1.3 mg/dL [facility] Bilirubin, Direct <0.1 0.0 - 0.3 mg/dL [facility] Blood Venous Draw / Unknown 06/27/2023 4:34 AM EDT 06/27/2023 4:53 AM EDT Narrative Resulting Agency Comment Spec In Lab Ailyn Irvin MD CHEMISTRY ORDERABLES Performing Organization Address City/[facility]/ZIP Co de Phone Number [facility] [place] [address] * Differential, Automated (06/27/2023 4:34 AM EDT) [facility] Neutrophil % 52.7 % [facility] Neutrophil Absolute 4.01 1.70 - 6.10 x10(3)/mcL [facility] Lymph % 33.8 % [facility] Lymphocytes Abs 2.6 0.9 - 3.2 x10(3)/[facility] Monocyte % 8.8 % [facility] Monocyte Abs 0.7 0.3 - 0.9 x10(3)/[facility] Eos % 3.8 % [facility] Eosinophils Abs 0.3 0.0 - 0.4 x10(3)/[facility] Basophil % 0.5 % [facility] Baso Absolute 0.0 0.0 - 0.1 x10(3)/[facility] Immature Gran % 0.40 % [facility] [...] x10(3)/[facility] Blood 06/27/2023 4:34 AM EDT 06/27/2023 4:51 AM EDT Narrative Resulting Agency Comment Spec In Lab Terrence Keating MD HEMATOLOGY ORDERABLE S Performing Organization Address City/State/[facility] Co de Phone Number [facility] [place] [place] [address] * Hemogram (06/27/2023 4:34 AM EDT) White Blood Cell 7.6 4.0 - 9.5 x10(3)/[facility] Red Blood Cell 4.15 4.00 - 5.21 x10(6)/[facility] Hemoglobin 12.9 11.7 - 15.5 g/dL [facility] Hematocrit 39.0 35.7 - 45.8 % [facility] Mean Cell Volume 94.0 82.6 - 94.4 fL [facility] Mean Cell Hemoglobin 31.1 27.1 - 32.0 pg [facility] Mean Cell Hemoglobin Concentration 33.1 31.7 - 35.0 g/dL [facility] Platelet 245 145 - 357 x10(3)/[facility] RDW Standard Deviation 45.2 37.0 - 46.0 fL [facility] RDW coefficient of variation 13.2 11.5 - 14.1 % [facility] Mean Platelet Volume 11.2 7.6 - 12.9 fL [facility] NRBC% auto 0.0 % [facility] NRBC Absolute 0.000 0.000 - 0.000 x10(3)/[facility] Blood 06/27/2023 4:34 AM EDT 06/27/2023 4:51 AM EDT Narrative Resulting Agency Comment Spec In Lab Terrence Keating MD HEMATOLOGY ORDERABLE S [facility] [place] [place] [address] * (ABNORMAL) Basic Metabolic Panel (non-fasting) (06/27/2023 4:34 AM EDT) Glucose 99 65 - 199 mg/dL [facility] Comment:Diabetes: >=200 mg/d L plus symptoms Blood Urea Nitrogen 26(H) 8 - 18 mg/dL [facility] [...] Filtration Rate 53(L) >=60 mL/min/1. 73 m?? [facility] [...] MD CHEMISTRY ORDERABL ES Performing Organization Address City/[facility]/ZIP Co de Phone Number [facility] [place] [address] * (ABNORMAL) Phosphorus (06/27/2023 4:34 AM EDT) Phosphorus 4.7(H) 2.5 - 4.5 mg/dL [facility] Blood 06/27/2023 4:34 AM EDT 06/27/2023 4:51 AM EDT Narrative Resulting Agency Comment Spec In Lab Eufemia Copeland MD CHEMISTRY ORDERABL ES [facility] [place] [address] * Magnesium (06/27/2023 4:34 AM EDT) Magnesium 0.90 0.69 - 1.07 mmol/L [facility] Blood 06/27/2023 4:34 AM EDT 06/27/2023 4:51 AM EDT Narrative Resulting Agency Comment Spec In Lab Eufemia Copeland MD CHEMISTRY ORDERABL ES [facility] [place] [address] * (ABNORMAL) Basic Metabolic Panel (non-fasting) (06/26/2023 4:58 PM EDT) Glucose 106 65 - 199 mg/dL [facility] Comment:Diabetes: >=200 mg/d L plus symptoms Blood Urea Nitrogen 24(H) 8 - 18 mg/dL [facility] [...] mmol/L [facility] Carbon Dioxide 21(L) 22 - 31 mmol/L [facility] Anion Gap 13 5 - 15 mmol/L [facility] Calcium 9.1 8.5 - 10.5 mg/dL [facility] Est Glomerular Filtration Rate 52(L) >=60 mL/min/1. 73 m?? [facility] [...] Irvin MD CHEMISTRY ORDERABLES Performing Organization Address [facility] Co de Phone Number [facility] [place] [address] * Urinalysis Microscopic Exam (06/26/2023 11:09 AM EDT) RBC, Urine 0 0 - 4 /HPF [facility] WBC, Urine 3 0 - 5 /HPF [facility] Squamous Epithelial Cells Raw Data, Urine 1 <=4 /HPF [facility] Hyaline Casts, Urine 1 0 - 2 /LPF [facility] Clean Catch Urine 06/26/2023 11:09 AM EDT 06/26/2023 5:45 PM EDT Narrative Resulting Agency Comment Spec In Lab Ailyn Irvin MD URINE ORDERABLES Performing Organization Address [facility] de Phone Number [facility] [place] [place] [address] * (ABNORMAL) Urinalysis with reflex Culture (06/26/2023 11:09 AM EDT) Glucose, Urine Dipstick Negative Negative mg/dL [facility] Protein, Urine Dipstick Negative Negative mg/dL [facility] Bilirubin, Urine Dipstick Negative Negative mg/dL [facility] Comment: Clinical correlation required for positive Urine Bilirubin results as false positive may occur with some drugs and drug related products. If a false positive is suspected a serum total bilirubin should be considered if clinically indicated. Urobilinogen, Urine Dipstick Normal Normal mg/dL [facility] pH, Urn (dipstick) 6.0 5.0 - 8.0 [facility] Blood, Urine Dipstick Negative Negative mg/dL [facility] Ketone, Urine Dipstick Negative Negative mg/dL [facility] Nitrite, Urine Dipstick Negative Negative [facility] Leukocytes, Urine Dipstick Trace(A) Negative [facility] Appearance, Urine Dipstick Clear Clear [facility] Specific [place] Urine Automated 1.013 1.005 - 1.030 [facility] Color, Urine Dipstick Yellow Yellow [facility] Reflex to Culture No [facility] Clean Catch Urine 06/26/2023 11:09 AM EDT 06/26/2023 5:45 PM EDT Narrative Resulting Agency Comment Spec In Lab Ailyn Irvin MD URINE ORDERABLES Performing Organization Address [facility] Co de Phone Number [facility] [place] [place] [address] * EKG 12 Lead (06/26/2023 6:04 AM EDT) Ventricular rate 46 BPM MUSE SYSTEM Atrial Rate 46 BPM MUSE SYSTEM P-R Interval 204 ms MUSE SYSTEM QRS Duration 90 ms MUSE SYSTEM Q-T Interval 466 ms MUSE SYSTEM QTC Calculated (Bezet) 407 ms MUSE SYSTEM Calculated P Rea 38 degrees MUSE SYSTEM Calculated R Rea 48 degrees MUSE SYSTEM Calculated T Rea 13 degrees MUSE SYSTEM INTERPRETATION Sinus bradycardia Nonspecific ST and T wave abnormality Abnormal ECG When compared with ECG of 23-JUN-2023 09:54, No significant change was found Confirmed by MD Dalia, Willy Huerta ([id number]) on 06/29/2023 6:09:20 AM MUSE SYSTEM 06/26/2023 6:04 AM EDT 06/29/2023 6:09 AM EDT Eufemia Copeland MD ECG ORDERABLES Performing Organization Address City/[facility]/ZIP Co de Phone Number MUSE SYSTEM * Differential, Automated (06/26/2023 4:06 AM EDT) Pathologist [facility] Neutrophil % 55.3 % [facility] Neutrophil Absolute 4.63 1.70 - 6.10 x10(3)/[facility] Lymph % 32.6 % [facility] Lymphocytes Abs 2.7 0.9 - 3.2 x10(3)/[facility] Monocyte % 8.2 % [facility] Monocyte Abs 0.7 0.3 - 0.9 x10(3)/[facility] Eos % 3.2 % [facility] Eosinophils Abs 0.3 0.0 - 0.4 x10(3)/[facility] Basophil % 0.5 % [facility] Baso Absolute 0.0 0.0 - 0.1 x10(3)/[facility] Immature Gran % 0.20 % [facility] [...] x10(3)/[facility] Blood 06/26/2023 4:06 AM EDT 06/26/2023 4:18 AM EDT Narrative Resulting Agency Comment Spec In Lab Terernce Keating MD HEMATOLOGY ORDERABLE S [facility] [place] [place] [address] * (ABNORMAL) Hemogram (06/26/2023 4:06 AM EDT) [facility] White Blood Cell 8.4 4.0 - 9.5 x10(3)/[facility] Red Blood Cell 4.52 4.00 - 5.21 x10(6)/mc L [facility] Hemoglobin 14.0 11.7 - 15.5 g/dL [facility] Hematocrit 43.6 35.7 - 45.8 % [facility] Mean Cell Volume 96.5(H) 82.6 - 94.4 fL [facility] Mean Cell Hemoglobin 31.0 27.1 - 32.0 pg [facility] Mean Cell Hemoglobin Concentration 32.1 31.7 - 35.0 g/dL [facility] Platelet 258 145 - 357 x10(3)/mc L [facility] RDW Standard Deviation 46.7(H) 37.0 - 46.0 fL [facility] RDW coefficient of variation 13.2 11.5 - 14.1 % [facility] Mean Platelet Volume 11.1 7.6 - 12.9 fL [facility] NRBC% auto 0.0 % [facility] NRBC Absolute 0.000 0.000 - 0.000 x10(3)/mc L [facility] Blood 06/26/2023 4:06 AM EDT 06/26/2023 4:18 AM EDT Narrative Resulting Agency Comment Spec In Lab Terrence Keating MD HEMATOLOGY ORDERABLE S Performing Organization Address City/State/[facility] Co de Phone Number [facility] [place] [place] [address] * (ABNORMAL) Basic Metabolic Panel (non-fasting) (06/26/2023 4:06 AM EDT) Glucose 100 65 - 199 mg/dL [facility] Comment:Diabetes: >=200 mg/d L plus symptoms Blood Urea Nitrogen 25(H) 8 - 18 mg/dL [facility] [...] mmol/L [facility] Carbon Dioxide 19(L) 22 - 31 mmol/L [facility] Anion Gap 12 5 - 15 mmol/L [facility] Calcium 9.6 8.5 - 10.5 mg/dL [facility] Est Glomerular Filtration Rate 52(L) >=60 mL/min/1. 73 m?? [facility] [...] MD CHEMISTRY ORDERABL ES Performing Organization Address City/[facility] Co de Phone Number [facility] [place] [place] [address] * Phosphorus (06/26/2023 4:06 AM EDT) Phosphorus 4.3 2.5 - 4.5 mg/dL [facility] Blood 06/26/2023 4:06 AM EDT 06/26/2023 4:18 AM EDT Narrative Resulting Agency Comment Spec In Lab Eufemia Copeland MD CHEMISTRY ORDERABL ES [facility] [place] [place] [address] * Magnesium (06/26/2023 4:06 AM EDT) Pathologist [facility] Magnesium 0.96 0.69 - 1.07 mmol/L [facility] Blood 06/26/2023 4:06 AM EDT 06/26/2023 4:18 AM EDT Narrative Resulting Agency Comment Spec In Lab Eufemia Copeland MD CHEMISTRY ORDERABL ES Performing Organization Address [facility] Co de Phone Number [facility] [place] [place] [address] * Differential, Automated (06/25/2023 1:50 AM EDT) [facility] Neutrophil % 56.2 % [facility] Neutrophil Absolute 4.06 1.70 - 6.10 x10(3)/[facility] Lymph % 30.5 % [facility] Lymphocytes Abs 2.2 0.9 - 3.2 x10(3)/[facility] Monocyte % 8.7 % [facility] Monocyte Abs 0.6 0.3 - 0.9 x10(3)/[facility] Eos % 3.9 % [facility] Eosinophils Abs 0.3 0.0 - 0.4 x10(3)/[facility] Basophil % 0.6 % [facility] Baso Absolute 0.0 0.0 - 0.1 x10(3)/[facility] Immature Gran % 0.10 % [facility] [...] x10(3)/[facility] Blood 06/25/2023 1:50 AM EDT 06/25/2023 2:16 AM EDT Narrative Resulting Agency Comment Spec In Lab Terrence Keating MD HEMATOLOGY ORDERABLE S [facility] [place] [address] * Hemogram (06/25/2023 1:50 AM EDT) White Blood Cell 7.2 4.0 - 9.5 x10(3)/[facility] Red Blood Cell 4.57 4.00 - 5.21 x10(6)/[facility] Hemoglobin 14.4 11.7 - 15.5 g/dL [facility] Hematocrit 42.9 35.7 - 45.8 % [facility] Mean Cell Volume 93.9 82.6 - 94.4 fL [facility] Mean Cell Hemoglobin 31.5 27.1 - 32.0 pg [facility] Mean Cell Hemoglobin Concentration 33.6 31.7 - 35.0 g/dL [facility] Platelet 241 145 - 357 x10(3)/[facility] RDW Standard Deviation 44.7 37.0 - 46.0 [facility] RDW coefficient of variation 13.2 11.5 - 14.1 % [facility] Mean Platelet Volume 11.5 7.6 - 12.9 [facility] NRBC% auto 0.0 % [facility] NRBC Absolute 0.000 0.000 - 0.000 x10(3)/[facility] Blood 06/25/2023 1:50 AM EDT 06/25/2023 2:16 AM EDT Narrative Resulting Agency Comment Spec In Lab Terrence Keating MD HEMATOLOGY ORDERABLE S [facility] [place] [address] * (ABNORMAL) Basic Metabolic Panel (non-fasting) (06/25/2023 1:50 AM EDT) Glucose 99 65 - 199 mg/dL [facility] Comment:Diabetes: >=200 mg/d L plus symptoms Blood Urea Nitrogen 20(H) 8 - 18 mg/dL [facility] [...] mmol/L [facility] Carbon Dioxide 25 22 - 31 mmol/L [facility] Anion Gap 12 5 - 15 mmol/L [facility] Calcium 9.4 8.5 - 10.5 mg/dL [facility] Est Glomerular Filtration Rate 38(L) >=60 mL/min/1. 73 m?? [facility] [...] ORDERABL ES Performing Organization Address [facility] [place] [address] * Phosphorus (06/25/2023 1:50 AM EDT) Phosphorus 4.4 2.5 - 4.5 mg/dL [facility] Blood 06/25/2023 1:50 AM EDT 06/25/2023 2:16 AM EDT Narrative Resulting Agency Comment Spec In Lab Eufemia Copeland MD CHEMISTRY ORDERABL ES Performing Organization Address [facility] [place] [address] * Magnesium (06/25/2023 1:50 AM EDT) Magnesium 0.99 0.69 - 1.07 mmol/L [facility] Blood 06/25/2023 1:50 AM EDT 06/25/2023 2:16 AM EDT Narrative Resulting Agency Comment Spec In Lab Eufemia Copeland MD CHEMISTRY ORDERABL ES Performing Organization Address [facility] [place] [address] * (ABNORMAL) pro-Brain Natriuretic Peptide (06/24/2023 3:38 AM EDT) NT-proBNP 1,239(H) <=124 pg/mL [facility] Blood Venous Draw / Unknown 06/24/2023 3:38 AM EDT 06/24/2023 3:49 AM EDT Narrative Resulting Agency Comment Spec In Lab Ailyn Irvin MD CHEMISTRY ORDERABLES Performing Organization Address City/[facility]/ZIP Co de [place] [address] * Differential, Automated (06/24/2023 3:38 AM EDT) Neutrophil % 51.6 % [facility] Neutrophil Absolute 3.54 1.70 - 6.10 x10(3)/[facility] Lymph % 36.0 % [facility] Lymphocytes Abs 2.5 0.9 - 3.2 x10(3)/[facility] Monocyte % 7.8 % [facility] Monocyte Abs 0.5 0.3 - 0.9 x10(3)/[facility] Eos % 3.6 % [facility] Eosinophils Abs 0.2 0.0 - 0.4 x10(3)/[facility] Basophil % 0.7 % [facility] Baso Absolute 0.0 0.0 - 0.1 x10(3)/[facility] Immature Gran % 0.30 % [facility] [...] x10(3)/[facility] Blood 06/24/2023 3:38 AM EDT 06/24/2023 3:49 AM EDT Narrative Resulting Agency Comment Spec In Lab Terrence Keating MD [place] [address] * Hemogram (06/24/2023 3:38 AM EDT) Pathologist [facility] White Blood Cell 6.9 4.0 - 9.5 x10(3)/[facility] Red Blood Cell 4.36 4.00 - 5.21 x10(6)/[facility] Hemoglobin 13.6 11.7 - 15.5 g/dL [facility] Hematocrit 40.7 35.7 - 45.8 % [facility] Mean Cell Volume 93.3 82.6 - 94.4 fL [facility] Mean Cell Hemoglobin 31.2 27.1 - 32.0 pg [facility] Mean Cell Hemoglobin Concentration 33.4 31.7 - 35.0 g/dL [facility] Platelet 220 145 - 357 x10(3)/[facility] RDW Standard Deviation 44.5 37.0 - 46.0 [facility] RDW coefficient of variation 13.0 11.5 - 14.1 % [facility] Mean Platelet Volume 10.8 7.6 - 12.9 [facility] NRBC% auto 0.0 % [facility] NRBC Absolute 0.000 0.000 - 0.000 x10(3)/[facility] Blood 06/24/2023 3:38 AM EDT 06/24/2023 3:49 AM EDT Narrative Resulting Agency Comment Spec In Lab Terrence Keating MD HEMATOLOGY ORDERABLE S [facility] [place] [place] [address] * Heparin (unfractionated) Level (06/24/2023 3:38 AM EDT) UF Heparin 0.44 IU/mL [facility] HEMATOLOGY ORDERABLE S [facility] [place] [address] * (ABNORMAL) Basic Metabolic Panel (non-fasting) (06/24/2023 3:38 AM EDT) Glucose 96 65 - 199 mg/dL [facility] Comment:Diabetes: >=200 mg/d L plus symptoms Blood Urea Nitrogen 20(H) 8 - 18 mg/dL [facility] [...] mmol/L [facility] Carbon Dioxide 21(L) 22 - 31 mmol/L [facility] Anion Gap 13 5 - 15 mmol/L [facility] Calcium 9.1 8.5 - 10.5 mg/dL [facility] Est Glomerular Filtration Rate 57(L) >=60 mL/min/1. 73 m?? [facility] [...] ORDERABL ES Performing Organization Address [facility] Co de Phone Number [facility] [place] [address] * Phosphorus (06/24/2023 3:38 AM EDT) Phosphorus 4.1 2.5 - 4.5 mg/dL [facility] Blood 06/24/2023 3:38 AM EDT 06/24/2023 3:49 AM EDT Narrative Resulting Agency Comment Spec In Lab Eufemia Copeland MD CHEMISTRY ORDERABL ES Performing Organization Address [facility] Co de Phone Number [facility] [place] [address] * Magnesium (06/24/2023 3:38 AM EDT) Magnesium 0.96 0.69 - 1.07 mmol/L [facility] Blood 06/24/2023 3:38 AM EDT 06/24/2023 3:49 AM EDT Narrative Resulting Agency Comment Spec In Lab Eufemia Copeland MD CHEMISTRY ORDERABL ES Performing Organization Address [facility] Co de Phone Number [facility] [place] [place] [address] * Heparin (unfractionated) Level (06/23/2023 9:24 PM [...] [facility] Co de Phone Number [facility] [place] [address] * Duplex Study Visceral Arteries, Comp (06/23/2023 3:36 PM EDT) Pathologist [facility] VB Text Report Department: Vascular Surgery Lab Patient: [id number] (LOIDA ROQUE) CPT: [id number] Referring Physician: AILYN IRVIN ?? Phone: Indications: [...] MD HEMATOLOGY ORDERABLE S Performing Organization Address City/[facility]/ZIP Co de Phone Number [facility] [place] [address] * EKG 12 Lead (06/23/2023 9:54 AM EDT) Ventricular rate 48 BPM MUSE SYSTEM Atrial Rate 48 BPM MUSE SYSTEM P-R Interval 192 ms MUSE SYSTEM QRS Duration 92 ms MUSE SYSTEM Q-T Interval 462 ms MUSE SYSTEM QTC Calculated (Bezet) 412 ms MUSE SYSTEM Calculated P Rea 21 degrees MUSE SYSTEM Calculated R Rea 20 degrees MUSE SYSTEM Calculated T Rea 16 degrees MUSE SYSTEM INTERPRETATION Sinus bradycardia Nonspecific ST and T wave abnormality Abnormal ECG When compared with ECG of 22-JUN-2023 11:13, Criteria for Septal infarct are no longer Present No significant change was found Confirmed by MD [place], Gus ([id number]) on 06/23/2023 12:59:50 PM MUSE SYSTEM 06/23/2023 9:54 AM EDT 06/23/2023 12:59 PM EDT Ailyn Irvin MD ECG ORDERABLES Performing Organization Address City/[facility]/ZIP Co de Phone Number MUSE SYSTEM * Differential, Automated (06/23/2023 4:12 AM EDT) Neutrophil % 52.8 % [facility] Neutrophil Absolute 4.30 1.70 - 6.10 x10(3)/[facility] Lymph % 33.9 % [facility] Lymphocytes Abs 2.8 0.9 - 3.2 x10(3)/[facility] Monocyte % 8.3 % [facility] Monocyte Abs 0.7 0.3 - 0.9 x10(3)/[facility] Eos % 3.9 % [facility] Eosinophils Abs 0.3 0.0 - 0.4 x10(3)/[facility] Basophil % 0.7 % [facility] Baso Absolute 0.1 0.0 - 0.1 x10(3)/[facility] Immature Gran % 0.40 % [facility] [...] x10(3)/[facility] Blood 06/23/2023 4:12 AM EDT 06/23/2023 4:38 AM EDT Narrative Resulting Agency Comment Spec In Lab Terrence Keating MD HEMATOLOGY ORDERABLE S [facility] [place] [place] [address] * Hemogram (06/23/2023 4:12 AM EDT) White Blood Cell 8.2 4.0 - 9.5 x10(3)/[facility] Red Blood Cell 4.59 4.00 - 5.21 x10(6)/[facility] [facility] Hemoglobin 14.3 11.7 - 15.5 g/dL [facility] Hematocrit 43.1 35.7 - 45.8 % [facility] Mean Cell Volume 93.9 82.6 - 94.4 fL [facility] Mean Cell Hemoglobin 31.2 27.1 - 32.0 pg [facility] Mean Cell Hemoglobin Concentration 33.2 31.7 - 35.0 g/dL [facility] Platelet 233 145 - 357 x10(3)/[facility] RDW Standard Deviation 44.2 37.0 - 46.0 fL [facility] RDW coefficient of variation 13.0 11.5 - 14.1 % [facility] Mean Platelet Volume 11.3 7.6 - 12.9 fL [facility] NRBC% auto 0.0 % [facility] NRBC Absolute 0.000 0.000 - 0.000 x10(3)/[facility] Blood 06/23/2023 4:12 AM EDT 06/23/2023 4:38 AM EDT Narrative Resulting Agency Comment Spec In Lab Terrence Keating MD HEMATOLOGY ORDERABLE S Performing Organization Address City/State/[facility] Co de Phone Number [facility] [place] [address] * (ABNORMAL) Heparin (unfractionated) Level (06/23/2023 4:12 AM EDT) UF Heparin 1.95(Crit ical) IU/mL [facility] [...] HEMATOLOGY ORDERABLE S [facility] [place] [address] * (ABNORMAL) Basic Metabolic Panel (non-fasting) (06/23/2023 4:12 AM EDT) Glucose 87 65 - 199 mg/dL [facility] [...] Filtration Rate 61 >=60 mL/min/1. 73 m?? [facility] [...] ORDERABL ES Performing Organization Address [facility] de Phone Number [facility] [place] [address] * Phosphorus (06/23/2023 4:12 AM EDT) Phosphorus 4.5 2.5 - 4.5 mg/dL [facility] Blood 06/23/2023 4:12 AM EDT 06/23/2023 4:38 AM EDT Narrative Resulting Agency Comment Spec In Lab Eufemia Copeland MD CHEMISTRY ORDERABL ES Performing Organization Address [facility] de Phone Number [facility] [place] [address] * Magnesium (06/23/2023 4:12 AM EDT) Magnesium 1.03 0.69 - 1.07 mmol/L [facility] Blood 06/23/2023 4:12 AM EDT 06/23/2023 4:38 AM EDT Narrative Resulting Agency Comment Spec In Lab Eufemia Copeland MD CHEMISTRY ORDERABL ES Performing Organization Address [facility] de Phone Number [facility] [place] [address] * ECHO LMTD W CONTRAST W LMTD SPEC DOPP COLOR DOPP (06/22/2023 4:25 PM EDT) Anatomical Region Laterality Modality Cardiac Other 06/22/2023 2:49 PM EDT Narrative 06/22/2023 4:42 PM EDT [address] [place] [address] ? Echocardiogram Report Name: LOIDA ROQUE ?Study Date: 06/22/2023 02:49 PM ?Patient Location: [place] [id number] A ??HR: 57 : 1970 ?Height: 162 cm ? Account: [id number] Age: 53 yrs ?Weight: 102 kg Gender: [...] slight decrease in LV systolic function. Procedure Complete-27384. Satisfactory quality. There is normal sinus rhythm. [...] ?large Aneurysmal ?15-16 ?? diffuse Procedure Note oJse Gallegos MD - 06/22/[address] [place] [address] Echocardiogram Report Name: LOIDA ROQUE Study Date: 06/22/2023 02:49 PM Patient Location: [place] [address] A HR:57 : 1970 Height: 162 cmAccount: [id number] Age: 53 yrs Weight: 102 kg Gender: [...] a slightdecrease in LV systolic function. Procedure Complete-59605. Satisfactory quality. There is normal sinus rhythm. [...] * (ABNORMAL) Troponin (06/22/2023 2:38 PM EDT) [facility] Troponin-T, High Sensitivity 22(H) <=14 ng/L [facility] Comment: [...] can be found in the [facility] Laboratory Test Catalog Troponin - [facility] Laboratory Test Catalog Reference: Fourth Collins Definition of Myocardial Infarction. Journal of the [place] [employer] 2018;72:8292-7433 Blood 06/22/2023 2:38 PM EDT 06/22/2023 2:50 PM EDT Narrative Resulting Agency Comment Spec In Lab Ailyn Irvin MD CHEMISTRY ORDERABLES Performing Organization Address [facility] Co de Phone Number [facility] [place] [address] * Duplex for DVT, Arm, Unilat (06/22/2023 2:24 PM EDT) VB Text Report Department: Vascular Surgery Lab Patient: [id number] (LOIDA ROQUE) CPT: 95381 Referring Physician: AILYN IRVIN ?? Phone: Indications: [...] Irvin MD VASCULAR ORDERABLES Performing Organization Address [facility] Co de Phone Number [...] care aid that requested your imaging first. Ailyn Irvin MD IMG DX ORDERABLES * (ABNORMAL) Troponin (06/22/2023 11:24 AM EDT) [facility] Troponin-T, High Sensitivity 22(H) <=14 ng/L [facility] Comment: [...] can be found in the [facility] Laboratory Test Catalog Troponin - [facility] Laboratory Test Catalog Reference: Fourth Collins Definition of Myocardial Infarction. Journal of the [place] [employer] 2018;72:2575-5642 Blood 06/22/2023 11:2 4 AM EDT 06/22/2023 11:44 AM EDT Narrative Resulting Agency Comment Spec In Lab Ailyn Irvin MD CHEMISTRY ORDERABLES [facility] [place] [address] * EKG 12 Lead (06/22/2023 11:13 AM EDT) Ventricular rate 63 BPM MUSE SYSTEM Atrial Rate 63 BPM MUSE SYSTEM P-R Interval 162 ms MUSE SYSTEM QRS Duration 86 ms MUSE SYSTEM Q-T Interval 382 ms MUSE SYSTEM QTC Calculated (Bezet) 390 ms MUSE SYSTEM Calculated P Rea 24 degrees MUSE SYSTEM Calculated R Rea 32 degrees MUSE SYSTEM Calculated T Rea -2 degrees MUSE SYSTEM INTERPRETATION Normal sinus rhythm Septal infarct (cited on or before 22-JUN-2023) Possible Lateral infarct , age undetermined ST & T wave abnormality, consider inferolateral ischemia Abnormal ECG When compared with ECG of 22-JUN-2023 10:55, No significant change was found Confirmed by MD Petey, Kia ([id number]) on 06/22/2023 3:56:31 PM MUSE SYSTEM 06/22/2023 11:1 3 AM EDT 06/22/2023 3:56 PM EDT Ailyn Irvin MD ECG ORDERABLES Performing Organization Address City/[facility]/ZIP Co de Phone Number MUSE SYSTEM * EKG 12 Lead (06/22/2023 10:55 AM EDT) Ventricular rate 56 BPM MUSE SYSTEM Atrial Rate 56 BPM MUSE SYSTEM P-R Interval 168 ms MUSE SYSTEM QRS Duration 88 ms MUSE SYSTEM Q-T Interval 426 ms MUSE SYSTEM QTC Calculated (Bezet) 411 ms MUSE SYSTEM Calculated P Rea 22 degrees MUSE SYSTEM Calculated R Rea 20 degrees MUSE SYSTEM Calculated T Rea 10 degrees MUSE SYSTEM INTERPRETATION Sinus bradycardia Septal infarct , age undetermined ST & T wave abnormality, consider inferolateral ischemia Abnormal ECG When compared with ECG of 21-JUN-2023 10:06, Septal infarct is now Present Confirmed by MD Angelo Danette ([id number]) on 06/22/2023 3:55:53 PM MUSE SYSTEM 06/22/2023 10:5 5 AM EDT 06/22/2023 3:55 PM EDT Ailyn Irvin MD ECG ORDERABLES Performing Organization Address [facility] Co de Phone Number MUSE SYSTEM * Differential, Automated (06/22/2023 4:34 AM EDT) Neutrophil % 54.4 % [facility] Neutrophil Absolute 4.07 1.70 - 6.10 x10(3)/[facility] Lymph % 30.6 % [facility] Lymphocytes Abs 2.3 0.9 - 3.2 x10(3)/[facility] Monocyte % 9.9 % [facility] Monocyte Abs 0.7 0.3 - 0.9 x10(3)/[facility] Eos % 4.3 % [facility] Eosinophils Abs 0.3 0.0 - 0.4 x10(3)/[facility] Basophil % 0.7 % [facility] Baso Absolute 0.0 0.0 - 0.1 x10(3)/[facility] Immature Gran % 0.10 % [facility] [...] x10(3)/[facility] Blood 06/22/2023 4:34 AM EDT 06/22/2023 4:42 AM EDT Narrative Resulting Agency Comment Spec In Lab Terrence Keating MD HEMATOLOGY ORDERABLE S [facility] [place] [address] * (ABNORMAL) Hemogram (06/22/2023 4:34 AM EDT) White Blood Cell 7.5 4.0 - 9.5 x10(3)/[facility] Red Blood Cell 4.04 4.00 - 5.21 x10(6)/[facility] Hemoglobin 12.8 11.7 - 15.5 g/dL [facility] Hematocrit 39.1 35.7 - 45.8 % [facility] Mean Cell Volume 96.8(H) 82.6 - 94.4 fL [facility] Mean Cell Hemoglobin 31.7 27.1 - 32.0 pg [facility] Mean Cell Hemoglobin Concentration 32.7 31.7 - 35.0 g/dL [facility] Platelet 225 145 - 357 x10(3)/[facility] RDW Standard Deviation 45.9 37.0 - 46.0 fL [facility] RDW coefficient of variation 13.0 11.5 - 14.1 % [facility] Mean Platelet Volume 10.6 7.6 - 12.9 fL [facility] NRBC% auto 0.0 % [facility] NRBC Absolute 0.000 0.000 - 0.000 x10(3)/mc L [facility] Blood 06/22/2023 4:34 AM EDT 06/22/2023 4:42 AM EDT Narrative Resulting Agency Comment Spec In Lab Terrence Keating MD HEMATOLOGY ORDERABLE S [facility] [place] [address] * (ABNORMAL) Basic Metabolic Panel (non-fasting) (06/22/2023 4:34 AM EDT) Glucose 94 65 - 199 mg/dL [facility] Comment:Diabetes: >=200 mg/d L plus symptoms Blood Urea Nitrogen 22(H) 8 - 18 mg/dL [facility] [...] mmol/L [facility] Carbon Dioxide 19(L) 22 - 31 mmol/L [facility] Anion Gap 17(H) 5 - 15 mmol/L [facility] Calcium 9.4 8.5 - 10.5 mg/dL [facility] Est Glomerular Filtration Rate 54(L) >=60 mL/min/1. 73 m?? [facility] [...] ORDERABL ES Performing Organization Address [facility] Co de Phone Number [facility] [place] [address] * (ABNORMAL) Phosphorus (06/22/2023 4:34 AM EDT) Phosphorus 4.9(H) 2.5 - 4.5 mg/dL [facility] Blood 06/22/2023 4:34 AM EDT 06/22/2023 4:42 AM EDT Narrative Resulting Agency Comment Spec In Lab Eufemia Copeland MD CHEMISTRY ORDERABL ES Performing Organization Address [facility] Co de Phone Number [facility] [place] [address] * Magnesium (06/22/2023 4:34 AM EDT) Magnesium 1.02 0.69 - 1.07 mmol/L [facility] Blood 06/22/2023 4:34 AM EDT 06/22/2023 4:42 AM EDT Narrative Resulting Agency Comment Spec In Lab Eufemia Copeland MD CHEMISTRY ORDERABL ES Performing Organization Address [facility] Co de Phone Number [facility] [place] [address] * CT Abdomen & Pelvis w Contrast [...] care aid that requested your imaging first. Eufemia Copeland MD IMG CT ORDERABLES * EKG 12 Lead (06/21/2023 10:06 AM EDT) Pathologist [facility] Ventricular rate 51 BPM MUSE SYSTEM Atrial Rate 51 BPM MUSE SYSTEM P-R Interval 176 ms MUSE SYSTEM QRS Duration 92 ms MUSE SYSTEM Q-T Interval 450 ms MUSE SYSTEM QTC Calculated (Bezet) 414 ms MUSE SYSTEM Calculated P Rea 17 degrees MUSE SYSTEM Calculated R Rea 35 degrees MUSE SYSTEM Calculated T Rea 13 degrees MUSE SYSTEM INTERPRETATION Sinus bradycardia [...] Healthcare Troponin-T, High Sensitivity 22(H) <=14 ng/L [facility] Comment: [...] can be found in the [facility] Laboratory Test Catalog Troponin - [facility] Laboratory Test Catalog Reference: Fourth Collins Definition of Myocardial Infarction. Journal of the [place] [employer] 2018;72:0445-8953 Blood 06/21/2023 9:45 AM EDT 06/21/2023 10:08 AM EDT Narrative Resulting Agency Comment Spec In Lab Eufemia Copeland MD CHEMISTRY ORDERABL ES Performing Organization Address City/[facility]/ZIP Co de Phone Number [facility] [place] [address] * (ABNORMAL) pro-Brain Natriuretic Peptide (06/21/2023 5:58 AM EDT) NT-proBNP 1,370(H) <=124 pg/mL [facility] Blood Venous Draw / Unknown 06/21/2023 5:58 AM EDT 06/21/2023 7:28 AM EDT Narrative Resulting Agency Comment Spec In Lab Eufemia Copeland MD CHEMISTRY ORDERABL ES Performing Organization Address [facility]/ZIP Co de Phone Number [facility] [place] [place] [address] * Potassium (06/21/2023 5:58 AM EDT) Potassium [...] MD CHEMISTRY ORDERABL ES Performing Organization Address City/[facility]/ZIP Co de Phone Number [facility] [place] [place] [address] * Differential, Automated (06/21/2023 3:25 AM EDT) Pathologist [facility] Neutrophil % 54.0 % [facility] Neutrophil Absolute 5.02 1.70 - 6.10 x10(3)/[facility] Lymph % 31.8 % [facility] Lymphocytes Abs 3.0 0.9 - 3.2 x10(3)/[facility] Monocyte % 8.9 % [facility] Monocyte Abs 0.8 0.3 - 0.9 x10(3)/[facility] Eos % 4.2 % [facility] Eosinophils Abs 0.4 0.0 - 0.4 x10(3)/[facility] Basophil % 0.8 % [facility] Baso Absolute 0.1 0.0 - 0.1 x10(3)/[facility] Immature Gran % 0.30 % [facility] [...] x10(3)/[facility] Blood 06/21/2023 3:25 AM EDT 06/21/2023 3:45 AM EDT Narrative Resulting Agency Comment Spec In Lab Terrence Keating MD HEMATOLOGY ORDERABLE S [facility] [place] [address] * Hemogram (06/21/2023 3:25 AM EDT) [facility] White Blood Cell 9.3 4.0 - 9.5 x10(3)/[facility] Red Blood Cell 4.74 4.00 - 5.21 x10(6)/[facility] Hemoglobin 14.9 11.7 - 15.5 g/dL [facility] Hematocrit 44.2 35.7 - 45.8 % [facility] Mean Cell Volume 93.2 82.6 - 94.4 fL [facility] Mean Cell Hemoglobin 31.4 27.1 - 32.0 pg [facility] Mean Cell Hemoglobin Concentration 33.7 31.7 - 35.0 g/dL [facility] Platelet 279 145 - 357 x10(3)/[facility] RDW Standard Deviation 44.7 37.0 - 46.0 [facility] RDW coefficient of variation 13.1 11.5 - 14.1 % [facility] Mean Platelet Volume 11.1 7.6 - 12.9 fL [facility] NRBC% auto 0.0 % [facility] NRBC Absolute 0.000 0.000 - 0.000 x10(3)/[facility] Blood 06/21/2023 3:25 AM EDT 06/21/2023 3:45 AM EDT Narrative Resulting Agency Comment Spec In Lab Terrence Keating MD HEMATOLOGY ORDERABLE S [facility] [place] [address] * (ABNORMAL) Basic Metabolic Panel (non-fasting) (06/21/2023 3:25 AM EDT) [facility] Glucose 95 65 - 199 mg/dL [facility] Comment:Diabetes: >=200 mg/d L plus symptoms Blood Urea Nitrogen 27(H) 8 - 18 mg/dL [facility] [...] mmol/L [facility] Carbon Dioxide 26 22 - 31 mmol/L [facility] Anion Gap 12 5 - 15 mmol/L [facility] Calcium 9.7 8.5 - 10.5 mg/dL [facility] Est Glomerular Filtration Rate 59(L) >=60 mL/min/1. 73 m?? [facility] [...] CHEMISTRY ORDERABL ES [facility] [place] [place] [address] * (ABNORMAL) Phosphorus (06/21/2023 3:25 AM EDT) Phosphorus 5.1(H) 2.5 - 4.5 mg/dL [facility] Blood 06/21/2023 3:25 AM EDT 06/21/2023 3:45 AM EDT Narrative Resulting Agency Comment Spec In Lab Eufemia Copeland MD CHEMISTRY ORDERABL ES Performing Organization Address City/[facility]/ZIP Co de Phone Number [facility] [place] [place] [address] * Magnesium (06/21/2023 3:25 AM EDT) Pathologist [facility] Magnesium 1.04 0.69 - 1.07 mmol/L [facility] Blood 06/21/2023 3:25 AM EDT 06/21/2023 3:45 AM EDT Narrative Resulting Agency Comment Spec In Lab Eufemia Copeland MD CHEMISTRY ORDERABL ES Performing Organization Address City/[facility] Co de Phone Number [facility] [place] [place] [address] * (ABNORMAL) Differential, Automated (06/20/2023 3:32 AM EDT) Pathologist [facility] Neutrophil % 52.5 % [facility] Neutrophil Absolute 5.28 1.70 - 6.10 x10(3)/mc L [facility] Lymph % 32.4 % [facility] Lymphocytes Abs 3.3(H) 0.9 - 3.2 x10(3)/mc L [facility] Monocyte % 9.7 % [facility] Monocyte Abs 1.0(H) 0.3 - 0.9 x10(3)/mc L [facility] Eos % 4.3 % [facility] Eosinophils Abs 0.4 0.0 - 0.4 x10(3)/mc L [facility] Basophil % 0.7 % [...] Absolute 0.04 0.00 - 0.04 x10(3)/ L [facility] Blood 06/20/2023 3:32 AM EDT 06/20/2023 3:47 AM EDT Narrative Resulting Agency Comment Spec In Lab Terrence Keating MD HEMATOLOGY ORDERABLE S [facility] [place] [address] * (ABNORMAL) Hemogram (06/20/2023 3:32 AM EDT) White Blood Cell 10.1(H) 4.0 - 9.5 x10(3)/[facility] LABORATORY Red Blood Cell 4.57 4.00 - 5.21 x10(6)/ L [facility] Hemoglobin 14.2 11.7 - 15.5 g/dL [facility] Hematocrit 41.5 35.7 - 45.8 % [facility] Mean Cell Volume 90.8 82.6 - 94.4 fL [facility] Mean Cell Hemoglobin 31.1 27.1 - 32.0 pg [facility] Mean Cell Hemoglobin Concentration 34.2 31.7 - 35.0 g/dL [facility] Platelet 253 145 - 357 x10(3)/ L [facility] RDW Standard Deviation 43.7 37.0 - 46.0 fL [facility] RDW coefficient of variation 13.2 11.5 - 14.1 % [facility] [...] HEMATOLOGY ORDERABLE S [facility] [place] [address] * (ABNORMAL) Basic Metabolic Panel (non-fasting) (06/20/2023 3:32 AM EDT) Glucose 99 65 - 199 mg/dL [facility] Comment:Diabetes: >=200 mg/d L plus symptoms Blood Urea Nitrogen 26(H) 8 - 18 mg/dL [facility] [...] Filtration Rate 58(L) >=60 mL/min/1. 73 m?? [facility] [...] ORDERABL ES Performing Organization Address [facility] Co de Phone Number [facility] [place] [address] * Phosphorus (06/20/2023 3:32 AM EDT) Phosphorus 4.3 2.5 - 4.5 mg/dL [facility] Blood 06/20/2023 3:32 AM EDT 06/20/2023 3:47 AM EDT Narrative Resulting Agency Comment Spec In Lab Eufemia Copeland MD CHEMISTRY ORDERABL ES Performing Organization Address [facility] Co de Phone Number [facility] [place] [address] * Magnesium (06/20/2023 3:32 AM EDT) Magnesium 1.00 0.69 - 1.07 mmol/L [facility] Blood 06/20/2023 3:32 AM EDT 06/20/2023 3:47 AM EDT Narrative Resulting Agency Comment Spec In Lab Eufemia Copeland MD CHEMISTRY ORDERABL ES Performing Organization Address [facility] Co de Phone Number [facility] [place] [address] * Phosphorus (06/19/2023 5:26 PM EDT) Phosphorus 4.0 2.5 - 4.5 mg/dL [facility] Blood 06/19/2023 5:26 PM EDT 06/19/2023 5:32 PM EDT Narrative Resulting Agency Comment Spec In Lab Eufemia Copeland MD CHEMISTRY ORDERABL ES Performing Organization Address [facility] Co de Phone Number [facility] [place] [address] * Magnesium (06/19/2023 5:26 PM EDT) Magnesium 0.98 0.69 - 1.07 mmol/L [facility] Blood 06/19/2023 5:26 PM EDT 06/19/2023 5:32 PM EDT Narrative Resulting Agency Comment Spec In Lab Eufemia Copeland MD CHEMISTRY ORDERABL ES Performing Organization Address [facility] Co de Phone Number [facility] [place] [address] * (ABNORMAL) Basic Metabolic Panel (non-fasting) (06/19/2023 5:26 PM EDT) Glucose 105 65 - 199 mg/dL [facility] [...] Filtration Rate 62 >=60 mL/min/1. 73 m?? [facility] [...] MD CHEMISTRY ORDERABL ES Performing Organization Address City/[facility]/ZIP Co de Phone Number [facility] [place] [address] * EKG 12 Lead (06/19/2023 4:24 AM EDT) Ventricular rate 66 BPM MUSE SYSTEM Atrial Rate 66 BPM MUSE SYSTEM P-R Interval 188 ms MUSE SYSTEM QRS Duration 92 ms MUSE SYSTEM Q-T Interval 484 ms MUSE SYSTEM QTC Calculated (Bezet) 507 ms MUSE SYSTEM Calculated P Rea 32 degrees MUSE SYSTEM Calculated R Rea 22 degrees MUSE SYSTEM Calculated T Rea 47 degrees MUSE SYSTEM INTERPRETATION Normal sinus rhythm Nonspecific ST abnormality Prolonged QT Abnormal ECG When compared with ECG of 15-JUN-2023 10:50, No significant change was found Confirmed by MD AKIRA, CINDY ([id number]) on 06/19/2023 2:42:42 PM MUSE SYSTEM 06/19/2023 4:24 AM EDT 06/19/2023 2:42 PM EDT Terrence Keating MD ECG ORDERABLES Performing Organization Address City/[facility]/ZIP Co de Phone Number MUSE SYSTEM * (ABNORMAL) Basic Metabolic Panel (non-fasting) (06/19/2023 3:22 AM EDT) Glucose 101 65 - 199 mg/dL [facility] Comment:Diabetes: >=200 mg/d L plus symptoms Blood Urea Nitrogen 24(H) 8 - 18 mg/dL [facility] [...] mmol/L [facility] Carbon Dioxide Not Perf - [facility] Comment:Add-on request. Samp le too old to perform test. Anion Gap Unable to Calculate 5 - 15 mmol/L [facility] Calcium 9.4 8.5 - 10.5 mg/dL [facility] Est Glomerular Filtration Rate 64 >=60 mL/min/1 .73 m?? [facility] [...] MD CHEMISTRY ORDERABL ES Performing Organization Address City/[facility]/ZIP Co de Phone Number [facility] [place] [address] * Differential, Automated (06/19/2023 3:22 AM EDT) Neutrophil % 54.0 % [facility] Neutrophil Absolute 5.08 1.70 - 6.10 x10(3)/[facility] Lymph % 30.7 % [facility] Lymphocytes Abs 2.9 0.9 - 3.2 x10(3)/[facility] Monocyte % 10.0 % [facility] Monocyte Abs 0.9 0.3 - 0.9 x10(3)/[facility] Eos % 4.5 % [facility] Eosinophils Abs 0.4 0.0 - 0.4 x10(3)/[facility] Basophil % 0.6 % [facility] Baso Absolute 0.1 0.0 - 0.1 x10(3)/[facility] Immature Gran % 0.20 % [facility] [...] x10(3)/[facility] [facility] LABORATORY Blood 06/19/2023 3:22 AM EDT 06/19/2023 3:47 AM EDT Narrative Resulting Agency Comment Spec In Lab Terrence Keating MD HEMATOLOGY ORDERABLE S Performing Organization Address City/[facility]/ZIP Co de Phone Number [facility] [place] [place] [address] * Hemogram (06/19/2023 3:22 AM EDT) White Blood Cell 9.4 4.0 - 9.5 x10(3)/[facility] LABORATORY Red Blood Cell 4.48 4.00 - 5.21 x10(6)/[facility] LABORATORY Hemoglobin 13.9 11.7 - 15.5 g/dL [facility] Hematocrit 41.7 35.7 - 45.8 % [facility] Mean Cell Volume 93.1 82.6 - 94.4 fL [facility] Mean Cell Hemoglobin 31.0 27.1 - 32.0 pg [facility] Mean Cell Hemoglobin Concentration 33.3 31.7 - 35.0 g/dL [facility] Platelet 244 145 - 357 x10(3)/[facility] LABORATORY RDW Standard Deviation 44.2 37.0 - 46.0 [facility] LABORATORY RDW coefficient of variation 12.9 11.5 - 14.1 % [facility] Mean Platelet Volume 10.9 7.6 - 12.9 fL [facility] NRBC% auto 0.0 % [facility] LABORATORY NRBC Absolute 0.000 0.000 - 0.000 x10(3)/[facility] LABORATORY Blood 06/19/2023 3:22 AM EDT 06/19/2023 3:47 AM EDT Narrative Resulting Agency Comment Spec In Lab Terrence Keating MD HEMATOLOGY ORDERABLE S [facility] [place] [place] [address] * Phosphorus (06/19/2023 3:22 AM EDT) Phosphorus 4.1 2.5 - 4.5 mg/dL [facility] Blood 06/19/2023 3:22 AM EDT 06/19/2023 3:47 AM EDT Narrative Resulting Agency Comment Spec In Lab Eufemia Copeland MD CHEMISTRY ORDERABL ES Performing Organization Address City/[facility]/ZIP Co de Phone Number [facility] [place] [place] [address] * Magnesium (06/19/2023 3:22 AM EDT) Magnesium 1.00 0.69 - 1.07 mmol/L [facility] Blood 06/19/2023 3:22 AM EDT 06/19/2023 3:47 AM EDT Narrative Resulting Agency Comment Spec In Lab Eufemia Copeland MD CHEMISTRY ORDERABL ES Performing Organization Address [facility] Co de Phone Number [facility] [place] [address] * (ABNORMAL) Basic Metabolic Panel (non-fasting) (06/18/2023 5:17 PM EDT) Glucose 115 65 - 199 mg/dL [facility] Comment:Diabetes: >=200 mg/d L plus symptoms Blood Urea Nitrogen 22(H) 8 - 18 mg/dL [facility] [...] Filtration Rate 58(L) >=60 mL/min/1. 73 m?? [facility] CHEMISTRY ORDERABL ES [facility] [place] [address] * (ABNORMAL) Basic Metabolic Panel (non-fasting) (06/18/2023 4:19 AM EDT) Pathologist [facility] Glucose 96 65 - 199 mg/dL [facility] Comment:Diabetes: >=200 mg/d L plus symptoms Blood Urea Nitrogen 22(H) 8 - 18 mg/dL [facility] [...] mmol/L [facility] Carbon Dioxide Not Perf 22 - 31 [facility] Comment:Add-on request. Samp le too old to perform test. Anion Gap Unable to Calculate 5 - 15 mmol/L [facility] Calcium 9.5 8.5 - 10.5 mg/dL [facility] Est Glomerular Filtration Rate 73 >=60 mL/min/1 .73 m?? [facility] [...] CHEMISTRY ORDERABL ES [facility] [place] [id number] * Differential, Automated (06/18/2023 4:19 AM EDT) Neutrophil % 54.1 % [facility] Neutrophil Absolute 4.52 1.70 - 6.10 x10(3)/[facility] LABORATORY Lymph % 31.0 % [facility] Lymphocytes Abs 2.6 0.9 - 3.2 x10(3)/[facility] LABORATORY Monocyte % 9.2 % [facility] Monocyte Abs 0.8 0.3 - 0.9 x10(3)/[facility] LABORATORY Eos % 4.9 % [facility] Eosinophils Abs 0.4 0.0 - 0.4 x10(3)/[facility] LABORATORY Basophil % 0.6 % [facility] Baso Absolute 0.0 0.0 - 0.1 x10(3)/[facility] LABORATORY Immature Gran % 0.20 % [facility] [...] x10(3)/[facility] LABORATORY Blood 06/18/2023 4:19 AM EDT 06/18/2023 4:40 AM EDT Narrative Resulting Agency Comment Spec In Lab Terrence Keating MD HEMATOLOGY ORDERABLE S [facility] [place] [place] [address] * Hemogram (06/18/2023 4:19 AM EDT) White Blood Cell 8.4 4.0 - 9.5 x10(3)/[facility] LABORATORY Red Blood Cell 4.70 4.00 - 5.21 x10(6)/[facility] LABORATORY Hemoglobin 14.5 11.7 - 15.5 g/dL [facility] Hematocrit 42.8 35.7 - 45.8 % [facility] Mean Cell Volume 91.1 82.6 - 94.4 fL [facility] Mean Cell Hemoglobin 30.9 27.1 - 32.0 pg [facility] Mean Cell Hemoglobin Concentration 33.9 31.7 - 35.0 g/dL [facility] Platelet 258 145 - 357 x10(3)/[facility] LABORATORY RDW Standard Deviation 43.6 37.0 - 46.0 fL [facility] RDW coefficient of variation 13.0 11.5 - 14.1 % [facility] Mean Platelet Volume 10.7 7.6 - 12.9 fL [facility] NRBC% auto 0.0 % [facility] NRBC Absolute 0.000 0.000 - 0.000 x10(3)/mcL [facility] Blood 06/18/2023 4:19 AM EDT 06/18/2023 4:40 AM EDT Narrative Resulting Agency Comment Spec In Lab Terrence Keating MD HEMATOLOGY ORDERABLE S Performing Organization Address City/[facility]/ZIP Co de Phone Number [facility] [place] [place] [address] * Phosphorus (06/18/2023 4:19 AM EDT) Phosphorus 3.7 2.5 - 4.5 mg/dL [facility] Blood 06/18/2023 4:19 AM EDT 06/18/2023 4:40 AM EDT Narrative Resulting Agency Comment Spec In Lab Eufemia Copeland MD CHEMISTRY ORDERABL ES Performing Organization Address [facility] Co de Phone Number [facility] [place] [address] * Magnesium (06/18/2023 4:19 AM EDT) Magnesium 1.02 0.69 - 1.07 mmol/L [facility] Blood 06/18/2023 4:19 AM EDT 06/18/2023 4:40 AM EDT Narrative Resulting Agency Comment Spec In Lab Eufemia Copeland MD CHEMISTRY ORDERABL ES Performing Organization Address City/[facility]/ZIP Co de Phone Number [facility] [place] [address] * Phosphorus (06/17/2023 2:26 PM EDT) Phosphorus 2.8 2.5 - 4.5 mg/dL [facility] Blood 06/17/2023 2:26 PM EDT 06/17/2023 2:36 PM EDT Narrative Resulting Agency Comment Spec In Lab Eufemia Copeland MD CHEMISTRY ORDERABL ES Performing Organization Address City/[facility]/ZIP Co de Phone Number [facility] [place] [address] * Magnesium (06/17/2023 2:26 PM EDT) Pathologist [facility] Magnesium 1.01 0.69 - 1.07 mmol/L [facility] Blood 06/17/2023 2:26 PM EDT 06/17/2023 2:36 PM EDT Narrative Resulting Agency Comment Spec In Lab Eufemia Copeland MD CHEMISTRY ORDERABL ES Performing Organization Address [facility] Co de Phone Number [facility] [place] [address] * (ABNORMAL) Basic Metabolic Panel (non-fasting) (06/17/2023 2:26 PM EDT) [facility] Glucose 103 65 - 199 mg/dL [facility] [...] Filtration Rate 62 >=60 mL/min/1. 73 m?? [facility] [...] CHEMISTRY ORDERABL ES [facility] [place] [address] * XR Abdomen Flat & Upright (06/17/2023 [...] aid that requested your imaging first. ? Electronically signed by: Wilton Cabrera MD, [facility] ([phone]), at 06/17/2023 5:30 PM Narrative 06/17/2023 5:30 [...] care aid that requested your imaging first. Eufemia Copeland MD IMG DX ORDERABLES * (ABNORMAL) Basic Metabolic Panel (non-fasting) (06/17/2023 5:01 AM EDT) Glucose 100 65 - 199 mg/dL [facility] Comment:Diabetes: >=200 mg/d L plus symptoms Blood Urea Nitrogen 24(H) 8 - 18 mg/dL [facility] [...] Filtration Rate 65 >=60 mL/min/1. 73 m?? [facility] [...] MD CHEMISTRY ORDERABLES [facility] [place] [place] [address] * Differential, Automated (06/17/2023 1:11 AM EDT) Neutrophil % 54.5 % [facility] Neutrophil Absolute 5.20 1.70 - 6.10 x10(3)/[facility] LABORATORY Lymph % 31.4 % [facility] Lymphocytes Abs 3.0 0.9 - 3.2 x10(3)/[facility] LABORATORY Monocyte % 9.8 % [facility] LAB[facility]AT[facility] Monocyte Abs 0.9 0.3 - 0.9 x10(3)/[facility] LABORATORY Eos % 3.4 % [facility] Eosinophils Abs 0.3 0.0 - 0.4 x10(3)/[facility] LABORATORY Basophil % 0.5 % [facility] Baso Absolute 0.0 0.0 - 0.1 x10(3)/[facility] LABORATORY Immature Gran % 0.40 % [facility] [...] x10(3)/[facility] LABORATORY Blood 06/17/2023 1:11 AM EDT 06/17/2023 1:16 AM EDT Narrative Resulting Agency Comment Spec In Lab Terrence Keating MD HEMATOLOGY ORDERABLE S [facility] [place] [place] [address] * Hemogram (06/17/2023 1:11 AM EDT) White Blood Cell 9.5 4.0 - 9.5 x10(3)/[facility] LABORATORY Red Blood Cell 4.60 4.00 - 5.21 x10(6)/[facility] LABORATORY Hemoglobin 14.2 11.7 - 15.5 g/dL [facility] Hematocrit 43.0 35.7 - 45.8 % [facility] Mean Cell Volume 93.5 82.6 - 94.4 fL [facility] Mean Cell Hemoglobin 30.9 27.1 - 32.0 pg [facility] Mean Cell Hemoglobin Concentration 33.0 31.7 - 35.0 g/dL [facility] Platelet 256 145 - 357 x10(3)/[facility] LABORATORY RDW Standard Deviation 45.0 37.0 - 46.0 [facility] LABORATORY RDW coefficient of variation 13.2 11.5 - 14.1 % [facility] Mean Platelet Volume 10.9 7.6 - 12.9 fL [facility] NRBC% auto 0.0 % [facility] NRBC Absolute 0.000 0.000 - 0.000 x10(3)/[facility] LABORATORY Blood 06/17/2023 1:11 AM EDT 06/17/2023 1:16 AM EDT Narrative Resulting Agency Comment Spec In Lab Terrence Keating MD HEMATOLOGY ORDERABLE S Performing Organization Address [facility]/ZIP Co de Phone Number [facility] [place] [place] [address] * Magnesium (06/17/2023 1:11 AM EDT) Magnesium 0.96 0.69 - 1.07 mmol/L [facility] Blood 06/17/2023 1:11 AM EDT 06/17/2023 1:16 AM EDT Narrative Resulting Agency Comment Spec In Lab Eufemia Copeland MD CHEMISTRY ORDERABL ES Performing Organization Address [facility]/ZIP Co de Phone Number [facility] [place] [place] [address] * (ABNORMAL) Basic Metabolic Panel (non-fasting) (06/17/2023 1:11 AM EDT) Glucose 102 65 - 199 mg/dL [facility] Comment:Diabetes: >=200 mg/d L plus symptoms Blood Urea Nitrogen 24(H) 8 - 18 mg/dL [facility] [...] Filtration Rate 61 >=60 mL/min/1. 73 m?? [facility] [...] MD CHEMISTRY ORDERABLES [facility] [place] [address] * (ABNORMAL) Basic Metabolic Panel (non-fasting) (06/16/2023 8:28 PM EDT) Glucose 111 65 - 199 mg/dL [facility] [...] mmol/L [facility] Carbon Dioxide 26 22 - 31 mmol/L [facility] Anion Gap 12 5 - 15 mmol/L [facility] Calcium 9.3 8.5 - 10.5 mg/dL [facility] Est Glomerular Filtration Rate 53(L) >=60 mL/min/1. 73 m?? [facility] [...] CHEMISTRY ORDERABL ES [facility] [place] [address] * (ABNORMAL) Basic Metabolic Panel (non-fasting) (06/16/2023 2:29 PM EDT) Glucose 175 65 - 199 mg/dL [facility] Comment:Diabetes: >=200 mg/d L plus symptoms Blood Urea Nitrogen 25(H) 8 - 18 mg/dL [facility] [...] mmol/L [facility] Carbon Dioxide 26 22 - 31 mmol/L [facility] Anion Gap 13 5 - 15 mmol/L [facility] Calcium 9.3 8.5 - 10.5 mg/dL [facility] Est Glomerular Filtration Rate 50(L) >=60 mL/min/1. 73 m?? [facility] [...] CHEMISTRY ORDERABL ES [facility] [place] [address] * (ABNORMAL) Basic Metabolic Panel (non-fasting) (06/16/2023 9:01 AM EDT) Glucose 148 65 - 199 mg/dL [facility] Comment:Diabetes: >=200 mg/d L plus symptoms Blood Urea Nitrogen 27(H) 8 - 18 mg/dL [facility] Creatinine 1.27(H) 0.70 - 1.20 mg/dL [facility] Sodium 136 135 - 145 mmol/L [facility] Potassium 2.9(Criti edy) 3.5 - 5.0 mmol/L [facility] Comment: called by tmp /read back by (Malia Mcintyre)/ 06/16/23 @103 Please note: ??Patients with WBC >100,000 may have falsely elevated Potassium levels. ??For accurate Potassium quantification in these patients send serum separator tube (gold top) for subsequent determinations. ??Contact the Clinical Chemistry Laboratory if there are any questions. Chloride 91(L) 98 - 107 mmol/L [facility] Carbon Dioxide 32(H) 22 - 31 mmol/L [facility] Anion Gap 13 5 - 15 mmol/L [facility] Calcium 9.7 8.5 - 10.5 mg/dL [facility] Est Glomerular Filtration Rate 50(L) >=60 mL/min/1. 73 m?? [facility] [...] Eufemia Copeland MD CHEMISTRY [place] [address] * (ABNORMAL) Magnesium (06/16/2023 3:30 AM EDT) [facility] Magnesium 1.09(H) 0.69 - 1.07 mmol/L [facility] Blood Venous Draw / Unknown 06/16/2023 3:30 AM EDT 06/16/2023 3:38 AM EDT Narrative Resulting Agency Comment Spec In Lab Eufemia Copeland MD [place] [address] * (ABNORMAL) Differential, Automated (06/16/2023 3:30 AM EDT) [facility] Neutrophil % 50.4 % [facility] Neutrophil Absolute 4.15 1.70 - 6.10 x10(3)/mc L [facility] Lymph % 33.7 % [facility] Lymphocytes Abs 2.8 0.9 - 3.2 x10(3)/mc L [facility] Monocyte % 11.8 % [facility] Monocyte Abs 1.0(H) 0.3 - 0.9 x10(3)/mc L [facility] Eos % 3.3 % [facility] Eosinophils Abs 0.3 0.0 - 0.4 x10(3)/mc L [facility] Basophil % 0.6 % [facility] Baso Absolute 0.0 0.0 - 0.1 x10(3)/mc L [facility] Immature Gran % 0.20 % [facility] Comment: Immature granulocytes(IG's)percentage and absolute count will include metamyelocytes, myelocytes, and promyelocytes. Blood smears from CBCs yielding IG's will be scanned manually for concordance. If this scan disagrees with the automated IG or if promyelocytes are noted, a manual differential will be performed. Immature Gran Absolute 0.02 0.00 - 0.04 x10(3)/mc L [facility] Blood 06/16/2023 3:30 AM EDT 06/16/2023 3:37 AM EDT Narrative Resulting Agency Comment Spec In Lab Terrence Keating MD HEMATOLOGY ORDERABLE S [facility] [place] [address] * Hemogram (06/16/2023 3:30 AM EDT) White Blood Cell 8.2 4.0 - 9.5 x10(3)/[facility] LABORATORY Red Blood Cell 4.69 4.00 - 5.21 x10(6)/[facility] LABORATORY Hemoglobin 14.5 11.7 - 15.5 g/dL [facility] Hematocrit 42.7 35.7 - 45.8 % [facility] Mean Cell Volume 91.0 82.6 - 94.4 fL [facility] Mean Cell Hemoglobin 30.9 27.1 - 32.0 pg [facility] Mean Cell Hemoglobin Concentration 34.0 31.7 - 35.0 g/dL [facility] Platelet 260 145 - 357 x10(3)/[facility] LABORATORY RDW Standard Deviation 43.5 37.0 - 46.0 [facility] LABORATORY RDW coefficient of variation 13.0 11.5 - 14.1 % [facility] Mean Platelet Volume 11.1 7.6 - 12.9 fL [facility] NRBC% auto 0.0 % [facility] NRBC Absolute 0.000 0.000 - 0.000 x10(3)/[facility] LABORATORY Blood 06/16/2023 3:30 AM EDT 06/16/2023 3:37 AM EDT Narrative Resulting Agency Comment Spec In Lab Terrence Keating MD HEMATOLOGY ORDERABLE S [facility] [place] [address] * (ABNORMAL) Basic Metabolic Panel (non-fasting) (06/16/2023 3:30 AM EDT) Glucose 110 65 - 199 mg/dL [facility] Comment:Diabetes: >=200 mg/d L plus symptoms Blood Urea Nitrogen 28(H) 8 - 18 mg/dL [facility] Creatinine 1.20 0.70 - 1.20 mg/dL [facility] Sodium 135 135 - 145 mmol/L [facility] Potassium 2.7(Criti edy) 3.5 - 5.0 mmol/L [facility] Comment: called by [place] /read back by Jolly Friedman / 06/16/23 [id number] Please note: ??Patients with WBC >100,000 may have falsely elevated Potassium levels. ??For accurate Potassium quantification in these patients send serum separator tube (gold top) for subsequent determinations. ??Contact the Clinical Chemistry Laboratory if there are any questions. Chloride 90(L) 98 - 107 mmol/L [facility] Carbon Dioxide 33(H) 22 - 31 mmol/L [facility] Anion Gap 12 5 - 15 mmol/L [facility] Calcium 9.2 8.5 - 10.5 mg/dL [facility] Est Glomerular Filtration Rate 54(L) >=60 mL/min/1. 73 m?? [facility] [...] ORDERABL ES Performing Organization Address [facility] Co de Phone Number [facility] [place] [address] * Heparin (unfractionated) Level (06/16/2023 3:30 AM [...] ORDERABLE S Performing Organization Address [facility] Co de Phone Number [facility] [place] [address] * Lipid Panel (Reflex Direct LDL) (06/16/2023 3:30 AM EDT) Cholesterol, Total 190 mg/dL [facility] Comment: Desirable: ? <200 mg/dL Borderline High: 200-239 mg/dL Higher: ?>ge=956 mg/dL Triglyceride 126 mg/dL [facility] Comment: Normal: ?<150 mg/dL Borderline High: 150-199 mg/dL High: ?200-499 mg/dL Very High: ? >wd=033 mg/dL HDL Cholesterol 50 mg/dL [facility] Comment: Females: High Risk: <50 mg/dL Males: High Risk: <40 mg/dL LDL Cholesterol 115 mg/dL [facility] Comment: Desirable: ? <100 mg/dL Above Desirable: 100-129 mg/dL Borderline High: 130-159 mg/dL High: ?160-189 mg/dL Very High: ? >mr=307 mg/dL Lipid Interpretation See Note [facility] [...] ACC/AHA Guidelines (most recently Ysabel et al. [facility] 12/09/21): For individuals with atherosclerotic cardiovascular disease (ASCVD)or LDL >yh=250 mg/dL, use a high-intensity statin (40-80 mg [...] MD CHEMISTRY ORDERABLES [facility] [place] [address] * (ABNORMAL) Basic Metabolic Panel (non-fasting) (06/15/2023 9:33 PM EDT) Glucose 120 65 - 199 mg/dL [facility] Comment:Diabetes: >=200 mg/d L plus symptoms Blood Urea Nitrogen 29(H) 8 - 18 mg/dL [facility] [...] mmol/L [facility] Carbon Dioxide 31 22 - 31 mmol/L [facility] Anion Gap 12 5 - 15 mmol/L [facility] Calcium 9.4 8.5 - 10.5 mg/dL [facility] Est Glomerular Filtration Rate 45(L) >=60 mL/min/1. 73 m?? [facility] [...] CHEMISTRY ORDERABL ES [facility] [place] [address] * Heparin (unfractionated) Level (06/15/2023 9:33 PM [...] MD HEMATOLOGY ORDERABLE S Performing Organization Address City/[facility]/ZIP Co de Phone Number [facility] [place] [address] * (ABNORMAL) Magnesium (06/15/2023 5:47 PM EDT) [facility] Magnesium 1.10(H) 0.69 - 1.07 mmol/L [facility] Blood Venous Draw / Unknown 06/15/2023 5:47 PM EDT 06/15/2023 6:10 PM EDT Narrative Resulting Agency Comment Spec In Lab Terrence Keating MD CHEMISTRY ORDERABLES Performing Organization Address [facility] Co de Phone Number [facility] [place] [address] * (ABNORMAL) Basic Metabolic Panel (non-fasting) (06/15/2023 5:47 PM EDT) [facility] Glucose 147 65 - 199 mg/dL [facility] Comment:Diabetes: >=200 mg/d L plus symptoms Blood Urea Nitrogen 29(H) 8 - 18 mg/dL [facility] [...] mmol/L [facility] Carbon Dioxide 29 22 - 31 mmol/L [facility] Anion Gap 16(H) 5 - 15 mmol/L [facility] Calcium 9.1 8.5 - 10.5 mg/dL [facility] Est Glomerular Filtration Rate 54(L) >=60 mL/min/1. 73 m?? [facility] [...] CHEMISTRY ORDERABL ES [facility] [place] [address] * Rapid Drug Screen w/o Confirmation, Urine (06/15/2023 4:46 PM EDT) Barbiturates Screen, Urine None Detected None Detected [facility] [...] Benzodiazepines Screen, Urine None Detected None Detected [facility] [...] Cocaine Screen, Urine None Detected None Detected [facility] [...] Metabolites Screen, Urine None Detected None Detected [facility] [...] Opiate Screen, Urine None Detected None Detected [facility] [...] Cannabinoid Screen, Urine None Detected None Detected [facility] Comment: The marijuana metabolites screen detects the THC metabolite ([id number]-3-carboxy-delta 9-THC) at concentrations >20 ng/mL. A ? Presumptive Positive? result indicates that the screening result was positive but has not yet been confirmed by a highly-specific method. As with any screen, occasional false positive results from cross-reacting substances may occur. Not for Medico-Legal Purposes. Oxycodone Screen, Urine None Detected None Detected [facility] [...] Buprenorphine Screen, Urine None Detected None Detected [facility] [...] characteristics of this test were determined by [facility] in accordance with CLIA requirements. This laboratory is qualified under CLIA to perform high-complexity testing. Fentanyl Screen, Urine None Detected None Detected [facility] [...] characteristics of this test were determined by [facility] in accordance with CLIA requirements. This laboratory is qualified under CLIA to perform high-complexity testing. Tricyclics Screen, Urine None Detected None Detected [facility] [...] characteristics of this test were determined by [facility] in accordance with CLIA requirements. This laboratory is qualified under CLIA to perform high-complexity testing. Ethanol Screen, Urine None Detected None Detected [facility] [facility] Comment:This urine ethanol a ssay detects ethanol at concentrations >/= 100 mg/L. Amphetamines Screen, Urine None Detected None Detected [facility] [...] Specimen Validity Test, Urine 39 >=20 mg/dL [facility] Chromate Specimen Validity Test, Urine <2.0 <=49.9 mg/L [facility] Nitrite Specimen Validity Test, Urine <50 <=499 mg/L [facility] Oxidant Specimen Validity Test, Urine 12 <=199 mg/L [facility] pH Specimen Validity Test, Urine 5.4 3.0 - 10.9 [facility] Adulterants Screen, Urine None Detected None Detected [facility] Comment:No adulteration of t his urine sample was detected. Urine 06/15/2023 4:46 PM EDT 06/15/2023 5:30 PM EDT Narrative Resulting Agency Comment Spec In Lab Eufemia Copeland MD CHEMISTRY ORDERABL ES Performing Organization Address City/[facility]/ZIP Co de Phone Number [facility] [place] [address] * Rapid Drug Screen, Urine (TEE Request) (06/15/2023 4:46 PM EDT) TEE Conf Requested No [facility] TEE Requested See Comment [facility] Comment:Refer to Rapid Drug Screen w/o Confirmation, Urine for results. Urine 06/15/2023 4:46 PM EDT 06/15/2023 5:30 PM EDT Narrative Resulting Agency Comment Spec In Lab Eufemia Copeland MD URINE ORDERABLES Performing Organization Address City/[facility]/ZIP Co de Phone Number [facility] [place] [address] * (ABNORMAL) Basic Metabolic Panel (non-fasting) (06/15/2023 2:29 PM EDT) Glucose 141 65 - 199 mg/dL [facility] Comment:Diabetes: >=200 mg/d L plus symptoms Blood Urea Nitrogen 31(H) 8 - 18 mg/dL [facility] mmol/L [facility] Carbon Dioxide 32(H) 22 - 31 mmol/L [facility] Anion Gap 11 5 - 15 mmol/L [facility] Calcium 9.6 8.5 - 10.5 mg/dL [facility] Est Glomerular Filtration Rate 53(L) >=60 mL/min/1. 73 m?? [facility] ORDERABL ES Performing Organization Address [facility] Co de Phone Number [facility] [place] [address] * Heparin (unfractionated) Level (06/15/2023 2:29 PM [...] ORDERABLE S Performing Organization Address [facility] Co de Phone Number [facility] [place] [address] * EKG 12 Lead (06/15/2023 10:50 AM EDT) [facility] Ventricular rate 55 BPM MUSE SYSTEM Atrial Rate 55 BPM MUSE SYSTEM P-R Interval 184 ms MUSE SYSTEM QRS Duration 96 ms MUSE SYSTEM Q-T Interval 590 ms MUSE SYSTEM QTC Calculated (Bezet) 565 ms MUSE SYSTEM Calculated P Rea 54 degrees MUSE SYSTEM Calculated R Rea 54 degrees MUSE SYSTEM Calculated T Rea 13 degrees MUSE SYSTEM INTERPRETATION Sinus bradycardia with sinus arrhythmia Marked ST abnormality, possible inferior subendocardial injury Long QT interval Abnormal ECG When compared with ECG of 15-JUN-2023 02:17, Nonspecific T wave abnormality has replaced inverted T waves in Lateral leads Confirmed by Kai Haider ([id number]) on 06/16/2023 3:52:04 PM MUSE SYSTEM 06/15/2023 10:5 0 AM EDT 06/16/2023 3:52 PM EDT Terrence Keating MD ECG ORDERABLES MUSE SYSTEM * (ABNORMAL) Basic Metabolic Panel (non-fasting) (06/15/2023 8:18 AM EDT) Glucose 113 65 - 199 mg/dL [facility] Comment:Diabetes: >=200 mg/d L plus symptoms Blood Urea Nitrogen 29(H) 8 - 18 mg/dL [facility] mmol/L [facility] Carbon Dioxide 30 22 - 31 mmol/L [facility] Anion Gap 15 5 - 15 mmol/L [facility] Calcium 10.0 8.5 - 10.5 mg/dL [facility] Est Glomerular Filtration Rate 53(L) >=60 mL/min/1. 73 m?? [facility] ORDERABL ES Performing Organization Address [facility]/ZIP Co de Phone Number [facility] [place] [address] * Heparin (unfractionated) Level (06/15/2023 8:18 AM [...] ORDERABLE S Performing Organization Address [facility]/ZIP Co de Phone Number [facility] [place] [address] * (ABNORMAL) Troponin (06/15/2023 8:18 AM EDT) Troponin-T, High Sensitivity 33(H) <=14 ng/L [facility] Comment: [...] can be found in the [facility] Laboratory Test Catalog Troponin - [facility] Laboratory Test Catalog Reference: Fourth Collins Definition of Myocardial Infarction. Journal of the [place] [employer] 2018;72:4617-5861 Blood 06/15/2023 8:18 AM EDT 06/15/2023 8:34 AM EDT Narrative Resulting Agency Comment Spec In Lab Terrence Keating MD CHEMISTRY ORDERABLES [facility] [place] [address] * Differential, Automated (06/15/2023 4:28 AM EDT) Neutrophil % 48.0 % [facility] Neutrophil Absolute 3.20 1.70 - 6.10 x10(3)/[facility] Lymph % 35.8 % [facility] Lymphocytes Abs 2.4 0.9 - 3.2 x10(3)/[facility] Monocyte % 11.4 % [facility] Monocyte Abs 0.8 0.3 - 0.9 x10(3)/[facility] Eos % 3.7 % [facility] Eosinophils Abs 0.2 0.0 - 0.4 x10(3)/[facility] Basophil % 1.0 % [facility] Baso Absolute 0.1 0.0 - 0.1 x10(3)/[facility] Immature Gran % 0.10 % [facility] [...] x10(3)/[facility] Blood 06/15/2023 4:28 AM EDT 06/15/2023 4:37 AM EDT Narrative Resulting Agency Comment Spec In Lab Terrence Keating MD HEMATOLOGY ORDERABLE S [facility] [place] [address] * (ABNORMAL) Hemogram (06/15/2023 4:28 AM EDT) White Blood Cell 6.7 4.0 - 9.5 x10(3)/ L [facility] Red Blood Cell 5.09 4.00 - 5.21 x10(6)/ L [facility] Hemoglobin 16.1(H) 11.7 - 15.5 g/dL [facility] Hematocrit 48.2(H) 35.7 - 45.8 % [facility] Mean Cell Volume 94.7(H) 82.6 - 94.4 fL [facility] Mean Cell Hemoglobin 31.6 27.1 - 32.0 pg [facility] Mean Cell Hemoglobin Concentration 33.4 31.7 - 35.0 g/dL [facility] Platelet 253 145 - 357 x10(3)/ L [facility] RDW Standard Deviation 45.5 37.0 - 46.0 fL [facility] RDW coefficient of variation 13.0 11.5 - 14.1 % [facility] Mean Platelet Volume 10.6 7.6 - 12.9 fL [facility] NRBC% auto 0.0 % [facility] NRBC Absolute 0.000 0.000 - 0.000 x10(3)/mc L [facility] Blood 06/15/2023 4:28 AM EDT 06/15/2023 4:37 AM EDT Narrative Resulting Agency Comment Spec In Lab Terrence Keating MD HEMATOLOGY ORDERABLE S [facility] [place] [address] * (ABNORMAL) Troponin (06/15/2023 4:28 AM EDT) Troponin-T, High Sensitivity 34(H) <=14 ng/L [facility] Comment: [...] can be found in the [facility] Laboratory Test Catalog Troponin - [facility] Laboratory Test Catalog Reference: Fourth Collins Definition of Myocardial Infarction. Journal of the [place] [employer] 2018;72:9685-0981 Blood 06/15/2023 4:28 AM EDT 06/15/2023 4:37 AM EDT Narrative Resulting Agency Comment Spec In Lab Terrence Keating MD CHEMISTRY ORDERABLES Performing Organization Address City/[facility]/ZIP Co de Phone Number [facility] [place] [address] * (ABNORMAL) Prothrombin Time (06/15/2023 4:28 AM EDT) Prothrombin Time 12.7(H) 9.4 - 12.5 sec [facility] International Normalization Ratio 1.1 [facility] Comment: An INR [...] MD HEMATOLOGY ORDERABLE S Performing Organization Address City/[facility]/ZIP Co de Phone Number [facility] [place] [address] * (ABNORMAL) Hepatic Function Panel (06/15/2023 4:28 AM EDT) Protein, Total 7.5 6.1 - 8.0 g/dL [facility] Albumin 4.3 3.2 - 5.2 g/dL [facility] Aspartate Aminotransferase 32(H) 0 - 30 unit/L [facility] Alanine Aminotransferase 26 0 - 30 unit/L [facility] Alkaline Phosphatase 70 35 - 105 unit/L [facility] Bilirubin, Total 0.8 0.2 - 1.3 mg/dL [facility] Bilirubin, Direct 0.1 0.0 - 0.3 mg/dL [facility] Blood 06/15/2023 4:28 AM EDT 06/15/2023 4:37 AM EDT Narrative Resulting Agency Comment Spec In Lab Terrence Keating MD CHEMISTRY ORDERABLES Performing Organization Address City/[facility]/ZIP Co de Phone Number [facility] [place] [address] * (ABNORMAL) pro-Brain Natriuretic Peptide (06/15/2023 4:28 AM EDT) NT-proBNP 1,953(H) <=124 pg/mL [facility] Blood 06/15/2023 4:28 AM EDT 06/15/2023 4:37 AM EDT Narrative Resulting Agency Comment Spec In Lab Terrence Keating MD CHEMISTRY ORDERABLES Performing Organization Address City/[facility]/ZIP Co de Phone Number [facility] [place] [address] * TSH (06/15/2023 4:28 AM EDT) Thyroid Stimulating Hormone 2.98 0.27 - 4.20 mcIU/mL [facility] Comment: Reference Interval (mcIU/mL): Females: ??First Trimester: 0.23-3.88 ??Second Trimester: 0.22-3.90 ??Third Trimester: 0.44-4.66 Blood 06/15/2023 4:28 AM EDT 06/15/2023 4:37 AM EDT Narrative Resulting Agency Comment Spec In Lab Terrence Keating MD CHEMISTRY ORDERABLES Performing Organization Address City/[facility]/ZIP Co de Phone Number [facility] [place] [address] * Phosphorus (06/15/2023 4:28 AM EDT) Phosphorus 4.4 2.5 - 4.5 mg/dL [facility] Blood 06/15/2023 4:28 AM EDT 06/15/2023 4:37 AM EDT Narrative Resulting Agency Comment Spec In Lab Terrence Keating MD CHEMISTRY ORDERABLES Performing Organization Address City/[facility]/ZIP Co de Phone Number [facility] [place] [address] * (ABNORMAL) Magnesium (06/15/2023 4:28 AM EDT) Magnesium 1.22(H) 0.69 - 1.07 mmol/L [facility] Blood 06/15/2023 4:28 AM EDT 06/15/2023 4:37 AM EDT Narrative Resulting Agency Comment Spec In Lab Terrence Keating MD CHEMISTRY ORDERABLES Performing Organization Address City/[facility]/ZIP Co de Phone Number [facility] [place] [address] * Calcium (06/15/2023 4:28 AM EDT) Calcium 9.7 8.5 - 10.5 mg/dL [facility] Blood 06/15/2023 4:28 AM EDT 06/15/2023 4:37 AM EDT Narrative Resulting Agency Comment Spec In Lab Terrence Keating MD CHEMISTRY ORDERABLES Performing Organization Address City/[facility] Co de Phone Number [facility] [place] [address] * (ABNORMAL) Basic Metabolic Panel (non-fasting) (06/15/2023 4:28 AM EDT) Glucose 112 65 - 199 mg/dL [facility] Comment:Diabetes: >=200 mg/d L plus symptoms Blood Urea Nitrogen 30(H) 8 - 18 mg/dL [facility] [...] mmol/L [facility] Carbon Dioxide 28 22 - 31 mmol/L [facility] Anion Gap 16(H) 5 - 15 mmol/L [facility] Calcium 9.7 8.5 - 10.5 mg/dL [facility] Est Glomerular Filtration Rate 52(L) >=60 mL/min/1. 73 m?? [facility] MD CHEMISTRY ORDERABLES [facility] [place] [address] * EKG 12 Lead (06/15/2023 2:17 AM EDT) Ventricular rate 57 BPM MUSE SYSTEM Atrial Rate 57 BPM MUSE SYSTEM P-R Interval 200 ms MUSE SYSTEM QRS Duration 94 ms MUSE SYSTEM Q-T Interval 606 ms MUSE SYSTEM QTC Calculated (Bezet) 591 ms MUSE SYSTEM Calculated P Rea 66 degrees MUSE SYSTEM Calculated R Rea 74 degrees MUSE SYSTEM Calculated T Rea -33 degrees MUSE SYSTEM INTERPRETATION Sinus bradycardia Possible Lateral infarct (cited on or before 17-APR-2023) Marked ST abnormality, possible inferior subendocardial injury Prolonged QTc Abnormal ECG When compared with ECG of 20-APR-2023 10:23, Nonspecific T wave changes QT has lengthened Confirmed by fellow MD Hansa, Sindhu ([id number]) on 06/15/2023 4:36:19 PM Confirmed by MD Petey, Kia ([id number]) on 06/15/2023 4:51:21 PM MUSE SYSTEM 06/15/2023 [...] (Given - Provider: Heidy Paris RN)1332 ([facility] Hold - Provider: Admin Adt - Reason: Transfer to a Procedural area)1548 ([facility] Unhold - Provider: Admin Adt) [...] at 1700, Until Discontinued, Routine 1332 ([facility] Hold - Provider: Admin Adt - Reason: Transfer to a Procedural area)1548 ([facility] Unhold - Provider: Admin Adt)1656 (Given - Provider: Heidy Paris RN) 1708 (Given - Provider: Heidy Paris RN) clopidogreL (Plavix) tablet 75 mg (CANCELED) 75 mg, Oral, DAILY, First dose on Wed07/03/23 at 0900, Until Discontinued, Routine 0854 (Given - Provider: Heidy Paris RN)1332 ([facility] Hold - Provider: Admin Adt - Reason: Transfer to a Procedural area)1548 ([facility] Unhold - Provider: Admin Adt) 0855 (Given - Provider: Heidy Paris RN) 0930 (Given - Provider: Heidy Paris RN) DULoxetine DR (Cymbalta) capsule 60 mg 60 mg, Oral, DAILY, First dose on Wed06/15/23 at 0900, Until Discontinued, Routine 0853 (Given - Provider: Heidy Paris RN)1332 ([facility] Hold - Provider: Admin Adt - Reason: Transfer to a Procedural area)1548 ([facility] Unhold - Provider: Admin Adt) 0856 (Given - Provider: Heidy Paris RN) 0931 (Given - Provider: Heidy Paris RN) gabapentin (Neurontin) capsule 600 mg 600 mg, Oral, NIGHTLY, First dose on Wed06/15/23 at 0200, Until Discontinued, Routine 1332 ([facility] Hold - Provider: Admin Adt - Reason: Transfer to a Procedural area)1548 ([facility] Unhold - Provider: Admin Adt)2136 [...] Paris RN - Reason: Patient/family refused)1332 ([facility] Hold - Provider: Admin Adt - Reason: Transfer to a Procedural area)1548 ([facility] Unhold - Provider: Admin Adt) 1000 (Not Given - Provider: Heidy Paris RN - Reason: Patient/family refused) 1000 (Not Given - Provider: Heidy Paris RN - Reason: Patient/family refused) melatonin tablet 6 mg 6 mg, Oral, NIGHTLY, First dose on Wed06/15/23 at 0200, Until Discontinued 1332 ([facility] Hold - Provider: Admin Adt - Reason: Transfer to a Procedural area)1548 ([facility] Unhold - Provider: Admin Adt)2136 (Given - Provider: Lorena Torres, ERWIN) 2116 (Given - Provider: Machelle Busch, ERWIN) metoprolol succinate XL (Toprol-XL) tablet 12.5 mg 12.5 mg, Oral, DAILY, First dose on Wed06/21/23 at 0900, Until Discontinued, DO NOT CRUSH OR OPEN Hold for HR <55 and Sbp <90, Routine 0854 (Given - Provider: Heidy Paris RN)1332 ([facility] Hold - Provider: Admin Adt - Reason: Transfer to a Procedural area)1548 ([facility] Unhold - Provider: Admin Adt) 0900 (Not Given - Provider: Heidy Paris RN - Reason: Order parameters not met) 0930 (Given - Provider: Heidy Paris RN) pantoprazole EC (Protonix) tablet 40 mg 40 mg, Oral, DAILY, First dose on Wed06/15/23 at 0900, Until Discontinued 0854 (Given - Provider: Heidy Paris RN)1332 ([facility] Hold - Provider: Admin Adt - Reason: Transfer to a Procedural area)1548 ([facility] Unhold - Provider: Admin Adt) [...] Paris RN - Reason: Patient/family refused)1332 ([facility] Hold - Provider: Admin Adt - Reason: Transfer to a Procedural area)1548 ([facility] Unhold - Provider: Admin Adt) [...] (Given - Provider: Heidy Paris RN)1332 ([facility] Hold - Provider: Admin Adt - Reason: Transfer to a Procedural area)1548 ([facility] Unhold - Provider: Admin Adt)2135 [...] Paris RN - Reason: Patient/family refused)1332 ([facility] Hold - Provider: Admin Adt - Reason: Transfer to a Procedural area)1548 ([facility] Unhold - Provider: Admin Adt) 1000 (Not Given - Provider: Heidy Paris RN - Reason: Patient/family refused) rOPINIRole (Requip) tablet 2 mg 2 mg, Oral, 2 TIMES DAILY, First dose on Wed06/15/23 at 0245, Until Discontinued, Routine 0853 (Given - Provider: Heidy Paris RN)1332 ([facility] Hold - Provider: Admin Adt - Reason: Transfer to a Procedural area)1548 ([facility] Unhold - Provider: Admin Adt)2136 [...] Paris RN - Reason: Patient/family refused)1332 ([facility] Hold - Provider: Admin Adt [...] (Given - Provider: Heidy Paris RN)1332 ([facility] Hold - Provider: Admin Adt - Reason: Transfer to a Procedural area)1548 ([facility] Unhold - Provider: Admin Adt)2099 [...] (Given - Provider: Heidy Paris RN)1332 ([facility] Hold - Provider: Admin Adt - Reason: Transfer to a Procedural area)1548 ([facility] Unhold - Provider: Admin Adt) 0856 (Given - Provider: Heidy Paris RN) 0931 (Given - Provider: Heidy Paris RN) topiramate (Topamax) tablet 100 mg 100 mg, Oral, NIGHTLY, First dose on Wed06/15/23 at 2100, Until Discontinued, Routine 1332 ([facility] Hold - Provider: Admin Adt - Reason: Transfer to a Procedural area)1548 ([facility] Unhold - Provider: Admin Adt)2137 [...] (Stopped - Provider: Heidy Paris, ERWIN)1332 ([facility] Hold - Provider: Admin Adt - Reason: Transfer to a Procedural area)1548 ([facility] Unhold - Provider: Admin Adt)1815 [...] pain medications are indicated., Routine 1332 ([facility] Hold - Provider: Admin Adt - Reason: Transfer to a Procedural area)1548 ([facility] Unhold - Provider: Admin Adt) albuteroL (Proventil, Ventolin) (2.5 mg/3 mL) (0.083 %) nebulizer solution 2.5 mg 2.5 mg, Nebulization, EVERY 4 HOURS PRN, Starting on Wed07/04/23 at 0857, Until Wed07/09/23 at 1844, Wheezing, Routine 1332 ([facility] Hold - Provider: Admin Adt - Reason: Transfer to a Procedural area)1548 ([facility] Unhold - Provider: Admin Adt) lidocaine (Xylocaine) 1% (10 mg/mL) injection 3 mg 3 mg (0.3 mL), Subcutaneous, ONCE PRN, 1 dose, Starting on Wed06/15/23 at 0146, Until Wed07/09/23 at 1844, for discomfort with PIV insertion, Routine 1332 ([facility] Hold - Provider: Admin Adt - Reason: Transfer to a Procedural area)1548 ([facility] Unhold - Provider: Admin Adt) loratadine (Claritin) tablet 10 mg 10 mg, Oral, DAILY PRN, Starting on Wed06/15/23 at 0146, Until Wed07/09/23 at 1844, allergies, Routine 1332 ([facility] Hold - Provider: Admin Adt - Reason: Transfer to a Procedural area)1548 ([facility] Unhold - Provider: Admin Adt) nitroGLYcerin (Nitrostat) disintegrating tablet 0.4 mg 0.4 mg, Sublingual, EVERY 5 MIN PRN, Starting on Wed06/22/23 at 1119, Until Wed07/09/23 at 1844, Chest pain, SL nitroglycerin may be repeated every 5 minutes as needed up to 3 doses, Routine 1332 ([facility] Hold - Provider: Admin Adt - Reason: Transfer to a Procedural area)1548 ([facility] Unhold - Provider: Admin Adt) 0951 (Given - Provider: Heidy Paris, ERWIN) ondansetron (pf) (Zofran) (2 mg/mL) injection 4 mg 4 mg, Intravenous, EVERY 8 HOURS PRN, Starting on Wed06/29/23 at 1449, Until Wed07/09/23 at 1844, Nausea 1332 ([facility] Hold - Provider: Admin Adt - Reason: Transfer to a Procedural area)1548 ([facility] Unhold - Provider: Admin Adt)2137 [...] all sources in 24 hours. 1332 ([facility] Hold - Provider: Admin Adt - Reason: Transfer to a Procedural area)1548 ([facility] Unhold - Provider: Admin Adt)2137 (Given - Provider: Lorena Torres, ERWIN) 0855 (Given - Provider: Heidy Paris, ERWIN)2120 (Given - Provider: Machelle Busch, ERWIN) simethicone (Gas-X Chew) 80 mg chewable tablet 80 mg 80 mg, Oral, EVERY 6 HOURS PRN, Starting on Wed06/20/23 at 0941, Until Wed07/09/23 at 1844, Cramping, Routine 1332 ([facility] Hold - Provider: Admin Adt - Reason: Transfer to a Procedural area)1548 ([facility] Unhold - Provider: Admin Adt) [...] on this medication record., Routine 1332 ([facility] Hold - Provider: Admin Adt - Reason: Transfer to a Procedural area)1548 ([facility] Unhold - Provider: Admin Adt) [...] Routine documented in this encounter Care Teams Category Manager Relationship Specialty Start Date End Date Polo Pearce PA [address] [place] [address] PCP - General Internal Medicine 06/09/21 documented as of this encounter
--- OUTSIDE RECORDS SUMMARY | 2024-04-10 17:07 | XMS_ITS | Encounter Summary ---
Author Organization Formerly [facility] [place] [address] Care Team Providers Care Oil And Gas Principal Name Role Phone Polo Pearce Primary Care Provider [phone] Encounter Details Date Type Department Care Team (Late st Contact Info) Description 06/14/2023 External [place] [address] Social History Tobacco Use Types Packs/Day Years [...] 3:00 PM EDT Office [place] [address] [place] [address] documented as of this encounter Procedures Procedure Name Priority Date/Time Associated Diagnosis Comments ECG SCAN Routine 06/14/2023 11:24 AM EDT documented in this encounter Results * Scan Doc: ECG (06/14/2023 11:24 AM EDT) Historical Provider MEDIA MGR SCAN EX T ORDR/RSLT documented in this encounter Visit Diagnoses Not on filedocumented in this encounter Care Teams Oil And Gas Principal Relationship Specialty Start Date End Date Polo Pearce PA [address] [place] [address] PCP - General Internal Medicine 06/09/21 documented as of this encounter
--- OUTSIDE RECORDS SUMMARY | 2024-04-10 17:07 | XMS_ITS | Encounter Summary ---
Author Organization Formerly [facility] Address [address] [facility] [place] [address] Care Team Providers Care Marker Maker Name Role Phone Polo Pearce Primary Care Provider [phone] Encounter Details Date Type Department Care Team [...] th e electric, gas, oil, or water [employer] threatened to shut off services in your [...] 3:00 PM EDT Office [place] [address] [place] [address] documented as of this encounter Visit Diagnoses Not on filedocumented in this encounter Care Teams Marker Maker Relationship Specialty Start Date End Date Polo Pearce PA [address] [place] [address] PCP - General Internal Medicine 06/09/21 documented as of this encounter
--- OUTSIDE RECORDS SUMMARY | 2024-04-10 17:07 | XMS_ITS | Encounter Summary ---
Author Organization [facility] Address [facility] [place] [address] Care Team Providers Care Snow Fence Erector Name Role Phone Polo Pearce Primary Care Provider [phone] Encounter Details Date Type Department Care Team [...] a long term (including now)? No 04/19/2023 IPV Inpatient Questions [...] 3:00 PM EDT Office [place] [address] [place] [address] documented as of this encounter Visit Diagnoses Not on filedocumented in this encounter Care Teams Snow Fence Erector Relationship Specialty Start Date End Date Polo Pearce PA [address] [place] [address] PCP - General Internal Medicine 06/09/21 documented as of this encounter
--- OUTSIDE RECORDS SUMMARY | 2024-04-10 17:08 | XMS_ITS | Encounter Summary ---
Author Organization [facility] Address [facility] [place] [address] Care Team Providers Care Hand Candy Cutter Name Role Phone Polo Pearce Primary Care Provider [phone] Encounter Details Date Type Department Care Team (Latest Contact Info) Description 04/30/2023 Travel Social History Tobacco Use Types Packs/Day Years Used Date Smoking Tobacco: Never Smokeless Tobacco: Never Alcohol Use Standard Drinks/Week Comments Never 0 (1 standard drink = 0.6 oz pur e alcohol) [facility] Utilities Answer Date Recorded In the [...] in a retirement (including now)? No 04/19/2023 IPV Inpatient Questions [...] 3:00 PM EDT Office [place] [address] [place] [address] documented as of this encounter Visit Diagnoses Not on filedocumented in this encounter Care Teams Hand Candy Cutter Relationship Specialty Start Date End Date Polo Pearce PA [address] [place] [address] PCP - General Internal Medicine 06/09/21 documented as of this encounter
--- OUTSIDE RECORDS SUMMARY | 2024-04-10 17:08 | XMS_ITS | Encounter Summary ---
[place] [address] Care Team Providers Care Manufacturer Representative Name Role Phone Polo Pearce Primary Care Provider [phone] Reason for Referral * Diagnostic Test (Routine) - Closed Specialty Diagnoses / Procedures Referred By Contac t Referred To Contact Radiology Diagnoses Chest pain, unspecified type Procedures NM PET CT Cardiac Sarcoid Maegan Mike APRN [facility] [place] [address] [place] [address] Referral ID Status Reason Start Date Expiration Date V isits Requested Visits Authorized [id number] Closed Specialty Service Requested 04/22/2023 10/20/2024 4 4 Reason for Visit * Diagnostic Test (Routine) - Closed Specialty Diagnoses / Procedures Referred By Contac t Referred To Contact Radiology Diagnoses Chest pain, unspecified type Procedures NM PET CT Cardiac Sarcoid Maegan Mike APRN [facility] [place] [address] [place] [address] Referral ID Status Reason Start Date Expiration Date V isits Requested Visits Authorized [id number] Closed Specialty Service Requested 04/22/2023 10/20/2024 4 4 Encounter Details Date Type Department Care Team (Latest Contact Info) Description 04/30/2023 11:01 AM EST Hospital Encounter [place] [address] Maegan Mike, [facility] [place] [address] Chest pain, unspecified type Discharge Disposition: Home Social History Tobacco Use Types Packs/Day Years Used Date Smoking Tobacco: Never Smokeless Tobacco: Never Alcohol Use Standard Drinks/Week Comments Never 0 (1 standard drink = 0.6 oz pur e alcohol) [facility] Utilities Answer Date Recorded In the past 12 months has th e [employer], gas, oil, or water [employer] threatened to shut off services in your [...] by mouth nightly. empagliflozin (Jardiance) 10 mg TabletIndications:Insole Rounder neal heart failure with preserved ejection fraction Take 1 tablet by mouth daily. 90 tablet 1 06/11/2021 rOPINIRole (Requip) 1 mg Tablet Take 2 mg by mouth 2 times daily. 07/16/2020 loratadine (Claritin) 10 mg Tablet Take 10 mg by mouth daily as needed. fluticasone propionate (FLONASE) 50 mcg/actuation [place], Suspension 1 spray by Each Nare route [...] 3:00 PM EDT Office [place] [address] [place] [address] documented as of this encounter Procedures Procedure [...] who have questions please contact the health progressive care unit registered nurse that requested your imaging first. ? 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 Following IV administration of 26.5 mCi technetium 99m sestamibi, SPECT-CT of the heart was obtained. Following IV injection of 8.8 mCi 79-lavvtd-7-deoxyglucose (FDG) and a standard uptake of approximately [...] obtained. Following IV injection of 8.8 mCi 19-dnahgr-6-deoxyglucose (FDG) and astandard uptake of approximately 60 [...] patients who have questions please contactthe health progressive care unit registered nurse that requested your imaging first. Electronically signed by: Humberto Qureshi MD, [facility]([phone]), at 05/06/2023 11:09 AM Maegan Mike SALES PRODUCT SPECIALIST IMG PET ORDERABLE S * POCT Glucose (04/30/2023 12:19 PM EST) Glucose, POC 79 65 - 199 mg/dL [facility] Comment: Supplemental ranges: <140 mg/dL before meals <180 mg/dL all other times of the day Blood 04/30/2023 12:1 9 PM EST 04/30/2023 12:19 PM EST Maegan Mike SALES PRODUCT SPECIALIST POINT OF CARE [place]YNET[place] [address] documented in this encounter Visit Diagnoses Diagnosis [...] Arm documented in this encounter Care Teams Manufacturer Representative Relationship Specialty Start Date End Date Polo Pearce PA [address] [place] [address] PCP - General Internal Medicine 06/09/21 documented as of this encounter
--- OUTSIDE RECORDS SUMMARY | 2024-04-10 17:08 | XMS_ITS | Encounter Summary ---
[place] [address] Care Team Providers Care Marine Fitter Name Role Phone Polo Pearce Primary Care Provider [phone] Reason for Visit * Diagnostic Test (Routine) - Closed Specialty Diagnoses / Procedures Referred By Jayant harris Referred To Contact Radiology Diagnoses Chest pain, unspecified type Procedures NM PET CT Cardiac Sarcoid Maegan Mike [facility] [place] [address] [place] [address] Referral ID Status Reason Start Date Expiration Date V isits Requested Visits Authorized [id number] Closed Specialty Service Requested 04/22/2023 10/20/2024 4 4 Encounter Details Date Type Department Care Team (Latest Contact Info) Description 04/30/2023 11:05 AM EST - 04/30/2023 11:59 PM EST Hospital Encounter [place] [address] Maegan Mike [facility] [place] [address] Discharge Disposition: Home Social History Tobacco Use Types Packs/Day Years Used Date Smoking Tobacco: Never Smokeless Tobacco: Never Alcohol Use Standard Drinks/Week Comments Never 0 (1 standard drink = 0.6 oz pur e alcohol) [facility] Utilities Answer Date Recorded In [...] by mouth nightly. 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 90 tablet 1 06/11/2021 rOPINIRole (Requip) 1 mg Tablet Take 2 mg by mouth 2 times daily. 07/16/2020 loratadine (Claritin) 10 mg Tablet Take 10 mg by mouth daily as needed. fluticasone propionate (FLONASE) 50 mcg/actuation [place], Suspension 1 spray by Each Nare route [...] 3:00 PM EDT Office [place] [phone] Mary Reyes, [place] [address] documented as of this encounter Procedures Procedure [...] questions please contact the health director of career services that requested your imaging first. ? 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 Following IV administration of 26.5 mCi technetium 99m sestamibi, SPECT-CT of the heart was obtained. Following IV injection of 8.8 mCi 66-guwflq-5-deoxyglucose (FDG) and a standard uptake of approximately [...] obtained. Following IV injection of 8.8 mCi 75-hpfkae-0-deoxyglucose (FDG) and astandard uptake of approximately 60 [...] have questions please contactthe health director of career services that requested your imaging first. Electronically signed by: Humberto Qureshi MD, [facility]([phone]), at 05/06/2023 11:09 AM Maegan Mike PATIENT SERVICE TECHNICIAN PST IMG PET ORDERABLE S documented in this encounter Visit Diagnoses Not on filedocumented in this encounter Care Teams Marine Fitter Relationship Specialty Start Date End Date Polo Pearce PA [address] [place] [address] PCP - General Internal Medicine 06/09/21 documented as of this encounter
--- OUTSIDE RECORDS SUMMARY | 2024-04-10 17:08 | XMS_ITS | Encounter Summary ---
Author Organization [facility] Address [facility] [place] [address] Care Team Providers Care Automatic Spinning Lathe Setter Name Role Phone Polo Pearce Primary Care Provider [phone] Reason for Visit * Reason Comments Cardiomyopathy Encounter Details Date Type Department Care Team (Late st Contact Info) Description 05/10/2023 2:40 PM EST Office Visit Cardiology at [address] [address] Jaspreet Kinsey MD [facility] [place] [address] Heart failure with preserved ejection fraction, unspecified [...] Oral, DAILY fluticasone propionate (FLONASE) 50 mcg/actuation [place], Suspension 1 spray, Each Nare, PRN gabapentin [...] referral to the good Dr Mcdaniels of [facility] expertise IN the meantime, increase torsemide [...] referral to the good Dr Mcdaniels of [facility] expertise IN the meantime, increase torsemide to 40 BID. - KATHRINE - ASO - Lyme Ab's - SPEP, FLC - iron, tibc, ferritin documented in this encounter Plan of Treatment Upcoming Encounters Date Type Department Care Team (Late st Contact Info) Description 07/19/2024 3:00 PM EDT Office [place] [address] [place] [address] documented as of this encounter Results * Streptococcal Antibody Panel (08/25/2023 11:28 AM EDT) [facility] Aso Titer (JULY) 25 0 - 530 IU/mL [facility] Comment: Test Performed by: [facility] [place] [address] Fuel Tank Sealer And Tester: Nellie Haney Ph.D.; CLIA# [id number] Dnase B Ab (JULY) 146 0 - 300 unit/mL [facility] Comment: Test Performed by: [facility] [place] [address] Fuel Tank Sealer And Tester: Nellie Haney Ph.D.; CLIA# [id number] Blood 08/25/2023 11:2 8 AM EDT 08/25/2023 1:02 PM EDT Narrative Resulting Agency Comment Spec In Lab Jaspreet Kinsey MD LAB SEND OUT ORDERAB LES [facility] [place] [address] * Lyme IgG & IgM Antibody (08/25/2023 11:28 AM EDT) [facility] Lyme Antibody Negative Negative [facility] Lyme Ab Comment Negative result does not exclude possibility of infection. [facility] Comment: Please note that as of 07/14/2022 that this testing is performed by the Special Chemistry Laboratory at [facility]. This change in testing location is associated with a change in testing methodology. Blood 08/25/2023 11:2 8 AM EDT 08/26/2023 7:26 AM EDT Narrative Resulting Agency Comment Spec In Lab Jaspreet Kinsey MD IMMUNOLOGY ORDERABLE S [facility] [place] [address] * Ferritin (08/25/2023 11:28 AM EDT) [facility] Ferritin 110 11 - 328 ng/mL [facility] Comment: Please note that as of 02/10/2023, the reference intervals for Ferritin have been updated. Blood 08/25/2023 11:2 8 AM EDT 08/25/2023 11:37 AM EDT Narrative Resulting Agency Comment Spec In Lab Jaspreet Kinsey MD CHEMISTRY ORDERABLES Performing Organization Address [facility]/ZIP Co de Phone Number [facility] [place] [address] * Iron and TIBC (08/25/2023 11:28 AM EDT) [facility] Iron 113 30 - 150 mcg/dL [facility] [...] Co de Phone Number [facility] [place] [address] * (ABNORMAL) Free Light Chains, Serum (08/25/2023 11:28 AM EDT) [place] Free Light Chain 3.09(H) 0.72 - 2.75 mg/dL [facility] Lambda Free Light Chain 1.65 0.57 - 2.15 mg/dL [facility] [place]/Lambda FLC Ratio 1.8727 0.4000 - 2.5800 [facility] Blood 08/25/2023 11:2 8 AM EDT 08/25/2023 11:36 AM EDT Narrative Resulting Agency Comment Spec In Lab Jaspreet Kinsey MD CHEMISTRY ORDERABLES Performing Organization Address City/[facility]/ZIP Co de Phone Number [facility] [place] [address] * (ABNORMAL) Protein Electrophoresis, serum (08/25/2023 11:28 AM EDT) Pathologist [facility] Total Prot Electrophoresis 7.5 6.1 - 8.0 [...] In Lab Jaspreet Kinsey MD CHEMISTRY ORDERABLES [facility] [place] [address] * KATHRINE Antibody Screen (08/25/2023 11:28 AM EDT) KATHRINE Ab Screen Negative Negative [facility] Comment: This antinuclear antibody (KATHRINE) screen is a qualitative test performed using a fluoroenzyme immunoassay on the XATAdia 250 analyzer. This screen is designed to [...] generated using a fluoroenzyme immunoassay on the XATAdia 250 analyzer. This quantitative test is designed to detect IgG antibodies directed against double stranded DNA in human serum. The presence of antibodies that recognize dsDNA is a highly specific marker for systemic lupus erythematosus. Please note that as of 12/30/2021 that this testing is performed by the Special Chemistry Laboratory at [facility]. This change in testing location is associated with a change is testing method and reference intervals. Please review the results of this test in association with the posted reference intervals. Blood 08/25/2023 11:2 8 AM EDT 08/26/2023 7:26 AM EDT Narrative Resulting Agency Comment Spec In Lab Jaspreet Kinsey MD LAB SEND OUT ORDERAB LES [facility] [place] [address] documented in this encounter Visit Diagnoses Diagnosis Heart failure with preserved ejection fraction, unspecified HF chronicity- Primary SVT (supraventricular tachycardia) Other specified cardiac dysrhythmias documented in this encounter Care Teams Automatic Spinning Lathe Setter Relationship Specialty Start Date End Date Polo Pearce PA [address] [place] [address] PCP - General Internal Medicine 06/09/21 documented as of this encounter
--- OUTSIDE RECORDS SUMMARY | 2024-04-10 17:08 | XMS_ITS | Encounter Summary ---
[place] [address] Care Team Providers Care Data Designer Name Role Phone Polo Pearce Primary Care Provider [phone] Reason for Visit * Diagnostic Test (Routine) - Closed Specialty Diagnoses / Procedures Referred By Jayant harris Referred To Contact Radiology Diagnoses Chest pain, unspecified type Procedures NM PET CT Cardiac Sarcoid Maegan Mike [facility] [place] [address] [place] [address] Referral ID Status Reason Start Date Expiration Date V isits Requested Visits Authorized [id number] Closed Specialty Service Requested 04/22/2023 10/20/2024 4 4 Encounter Details Date Type Department Care Team (Latest Contact Info) Description 04/30/2023 11:02 AM EST - 04/30/2023 11:04 AM EST Hospital Encounter [place] [address] Maegan Mike [facility] [place] [address] Discharge Disposition: Home Social History [...] by mouth nightly. 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 90 tablet 1 06/11/2021 rOPINIRole (Requip) 1 mg Tablet Take 2 mg by mouth 2 times daily. 07/16/2020 loratadine (Claritin) 10 mg Tablet Take 10 mg by mouth daily as needed. fluticasone propionate (FLONASE) 50 mcg/actuation [place], Suspension 1 spray by Each Nare route [...] 3:00 PM EDT Office [place] [address] Mary Reyes, [place] [address] documented as of this encounter Procedures Procedure [...] have questions please contact the health daycare worker that requested your imaging first. ? 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 Following IV administration of 26.5 mCi technetium 99m sestamibi, SPECT-CT of the heart was obtained. Following IV injection of 8.8 mCi 34-epnjht-9-deoxyglucose (FDG) and a standard uptake of approximately [...] obtained. Following IV injection of 8.8 mCi 93-qidxxr-9-deoxyglucose (FDG) and astandard uptake of approximately 60 [...] who have questions please contactthe health daycare worker that requested your imaging first. Electronically signed by: Humberto Qureshi MD, [facility]([phone]), at 05/06/2023 11:09 AM Maegan Mike ITEM PROCESSING CLERK IMG PET ORDERABLE S documented in this encounter Visit Diagnoses Not on filedocumented in this encounter Care Teams Data Designer Relationship Specialty Start Date End Date Polo Pearce PA [address] [place] [address] PCP - General Internal Medicine 06/09/21 documented as of this encounter
--- OUTSIDE RECORDS SUMMARY | 2024-04-10 17:08 | XMS_ITS | Encounter Summary ---
[place] [address] Care Team Providers Care Document Control Supervisor Name Role Phone Polo Pearce Primary Care Provider [phone] Reason for Referral * Diagnostic Test (Routine) - Closed Specialty Diagnoses / Procedures Referred By Jayant harris Referred To Contact Radiology Diagnoses Chest pain, unspecified type Procedures NM PET CT Cardiac Sarcoid Maegan Mkie APRN [facility] [place] [address] [place] [address] Referral ID Status Reason Start Date Expiration Date V isits Requested Visits Authorized [id number] Closed Specialty Service Requested 04/22/2023 10/20/2024 4 4 Reason for Visit * Auth/Cert (Routine) Specialty Diagnoses / Procedures Referred By Jayant t Referred To Contact Diagnoses NSTEMI (non-ST elevated myocardial infarction) NSTEMI Procedures ER Lloyd Pantoja MD [facility] [place] [address] [facility] Referral ID Status Reason Start Date Expiration Date Visits Re quested Visits Authorized [id number] 1 1 Encounter Details Date Type Department Care Team (Latest Contact Info) Description 04/16/2023 11:15 PM EST - 04/22/2023 5:15 PM EST Hospital Encounter Heart and Vascular Unit Level 4 Wing B at [facility] [place] [address] Jose Gallegos MD [facility] [place] [address] Ailyn Knight MD Kussaga, Frank M, MD [facility] [place] [address] Eufemia Copeland MD [facility] [place] [address] Chest pain, unspecified type; Non-ST elevation myocardial [...] th e electric, gas, oil, or water Around [employer] threatened to shut off services in your [...] Loida Madrigal Patient Age: 53 y.o. Language: Tongan Admit date: 04/16/2023 Discharge date and time: [...] lung disease secondary to obesity transferred from [facility] for further evaluation of exertional chest pressure and breathlessness. Abnormal OSH troponin 500 and repeat HS Trop at [facility] peak 27 with flat trend and elevated [...] discharge Inpatient Provider Contact Information: Cardiovascular Medicine [phone] Discharge Diagnoses (Hospital Problems) and Secondary Diagnoses [...] motion has increased. CTA PE protocol at [facility]- no PE but showed small pericardial effusion and some GG opacities. History of Presentation: Loida Madrigal is a 53 y.o. with hx of paroxysmal A-fib (diagnosed on 10/20/2022), pulmonary emboli on Eliquis, HFpEF (EF of 59%), supraventricular tachycardia (AVNRT since 06/2021) s/p EPS and SVTablation on 04/01/[address] Tovar on Toprol, restrictive lung disease secondary to obesity presents [...] consistent with previous recordings. Troponin levels at [facility] showed a plateau at 23 > 27. [...] again 10/15, improving with sublingua Nitro. At [facility] Vitals: HR 48, BP 115/42, O2 [...] #Acute on chronic HFpEF Patient presented to [facility] on 04/16 with chest pain responsive to SL NTG. Troponin ~500x2. Transferredto [facility] for further evaluation. Troponin at flat, 24>23 w/ repeat peak 27->26. She reported [...] days. Refills: 0 fluticasone propionate 50 mcg/actuation [place], Suspension Commonly known as: Flonase 1 spray [...] 9:40 AM Jaspreet Kinsey MD Cardiology at [place] Arrive at: [facility] [address] [phone] 09/21/2023 3:00 PM Jaspreet Kinsey MD Cardiology at [place] Arrive at: [facility] [address] [phone] Discharge References/Attachments None Greater than 30 minutes was spent on this discharge including documentation, [id number] time withthe patient, patient education, surgical orderly, [...] away. Stay on the phone. The emergency dehydration unit operator will tell you what to do. [...] of 8AM-5PM please call the Cardiology Clinic [phone] to speak with a nurse. All other hours please call the Hospital Residential Sales Executive [phone] and ask to speak to the extern on-call. Return to work: One week Follow up Appointments: Doctor Where Phone # Date Time PCP JOCY [address] [place] [address] 04/28/2023 7:[address] Kinsey [facility] [address] 05/10/2023 9:40 AM * Attachments The following attachments cannot be sent through Care Everywhere. * Coronary Angiogram: Post-op (Tongan) documented in this encounter Medications at Time [...] by mouth nightly. empagliflozin (Jardiance) 10 mg TabletIndications:Air Valve Repairer neal heart failure with preserved ejection fraction Take 1 tablet by mouth daily. 90 tablet 1 06/11/2021 rOPINIRole (Requip) 1 mg Tablet Take 2 mg by mouth 2 times daily. 07/16/2020 loratadine (Claritin) 10 mg Tablet Take 10 mg by mouth daily as needed. fluticasone propionate (FLONASE) 50 mcg/actuation [place], Suspension 1 spray by Each Nare route [...] reviewed with pt, pt wheeled to d[place] [facility]. I agree with the [...] were not included. CARDIOLOGY APP1 - [facility] DAILY PROGRESS NOTE Page [phone] to reach a provider 28/09 Admit Date: [...] Psychiatric: Behavior: Behavior normal. Labs: Recent Labs 04/21/2333904/20/23 03104/19/23 02404/18/2320904/17/23 0333 WBC 7.1 6.6 7.5 6.7 7.4 HGB 14.4 14.2 14.8 15.2 14.8 HCT 43.0 42.7 45.5 44.9 44.3 PLATELET 221 231 240 233 233 MCV 93.7 93.0 93.6 91.1 92.5 Recent Labs 04/21/2333904/20/2331004/19/23 02404/18/2320904/17/23 033 NA 138 139 139 143 141 CL [...] 12 CRP <=4.9 mg/L <3.0 <3.0 OSH [facility] troponin ~500. Telemetry: I have personally [...] disease secondary to obesity who presented to [facility] on 04/16 with chest pain responsive to SL NTG. Troponin ~500x2. Transferred to [facility] for further evaluation. Troponin at [facility], 24>23. Reports exertional chest pressure and dyspnea [...] Score: 24 PT: OT: PCP JOCY Franco [phone] Discussed with MD Kurt Ray PA-C APP1 pager [phone] 04/22/2023 CV HOSPITALIST ADDENDUM Date of Service: [...] 6:10 PM EST CARDIOLOGY APP1 - [facility] DAILY PROGRESS NOTE Page [phone] to reach a provider 28/09 Admit Date: [...] Behavior: Behavior normal. Labs: Recent Labs 04/21/2333904/20/2331004/19/23 02404/18/2320904/17/23 0333 WBC 7.1 6.6 7.5 6.7 7.4 HGB 14.4 14.2 14.8 15.2 14.8 HCT 43.0 42.7 45.5 44.9 44.3 PLATELET 221 231 240 233 233 MCV 93.7 93.0 93.6 91.1 92.5 Recent Labs 04/21/2333904/20/2331004/19/2323904/18/2320904/17/23 033 NA 138 139 139 143 141 CL [...] -- -- -- 867* Endocrine Recent Labs 04/18/2320904/17/23 0333 02/08/23 2208 09/27/22 0307 09/26/22 1750 [...] 12 CRP <=4.9 mg/L <3.0 <3.0 OSH [facility] troponin ~500. Telemetry: I have personally [...] disease secondary to obesity who presented to [facility] on 04/16 with chest pain responsive to SL NTG. Troponin ~500x2. Transferred to [facility] for further evaluation. Troponin at [facility], 24>23. Reports exertional chest pressure and dyspnea [...] occur Diet: Daily Healthy Menu Choices/Cardiac diet ([facility]-Diet) 2 GM NA DVT Prophylaxis: DOAC Code status: Attempt Cardiopulmonary Resuscitation - Inpatient Disposition: Discharge Location: AM-PAC Basic Mobility Raw Score: 22 PT: OT: PCP JOCY Franco [phone] * Eufemia Copeland MD - 04/20/2023 4:34 PM EST CARDIOLOGY APP1 - [facility] DAILY PROGRESS NOTE Page [phone] to reach a provider 28/09 Admit Date: [...] Psychiatric: Behavior: Behavior normal. Labs: Recent Labs 04/20/2331004/19/2323904/18/2320904/17/23332 WBC 6.6 7.5 6.7 7.4 HGB 14.2 14.8 15.2 14.8 HCT 42.7 45.5 44.9 44.3 PLATELET 231 240 233 233 MCV 93.0 93.6 91.1 92.5 Recent Labs 04/20/2331004/19/2323904/18/2320904/17/23 033 NA 139 139 143 141 CL [...] -- -- -- 867* Endocrine Recent Labs 04/18/2320904/17/23 0333 02/08/23 2208 09/27/22 0307 09/26/22 1750 TSH -- 5.93* 4.00 -- 3.02 HA1C 5.6 -- -- 5.6 -- Recent Labs 02/11/24 0210 CHLPL 173 TRIG 174 HDL 44 LDLCHOL 94 CHOLHDL 3.9 Recent Labs 04/17/23 1944 04/17/23 0333 GLUCOSE -- 89 POCGLU 128 -- Latest Reference Range & Units 02/09/23 03:55 04/17/23 03:33 Sed Rate 2 - 39 mm/hr 15 12 CRP <=4.9 mg/L <3.0 <3.0 OSH [facility] troponin ~500. Telemetry: I have personally [...] disease secondary to obesity who presented to [facility] on 04/16 with chest pain responsive to SL NTG. Troponin ~500x2. Transferred to [facility] for further evaluation. Troponin at [facility], 24>23. Reports exertional chest pressure and dyspnea [...] and no pericardial effusion. She underw ent [facility] on 04/18 which showed non-obstructive [...] occur Diet: Daily Healthy Menu Choices/Cardiac diet ([facility]-Diet) 2 GM NA; 2000 mL FLUID DVT Prophylaxis: DOAC Code status: Attempt Cardiopulmonary Resuscitation - Inpatient Disposition: Discharge Location: [facility] Basic Mobility Raw Score: 24 PT: OT: PCP JOCY Franco [phone] * Carrol La PA - 04/19/2023 12:32 PM EST CARDIOLOGY APP1 - [facility] DAILY PROGRESS NOTE Page [phone] to reach a provider 28/09 Admit Date: [...] 233 MCV 93.6 91.1 92.5 Recent Labs 04/19/2323904/18/2320904/17/23 033 NA 139 143 141 CL 105 [...] 24* PROBNP -- 867* Endocrine Recent Labs 04/18/2320904/17/23 03302/08/23 2208 09/27/22 0307 09/26/22 1750 TSH -- 5.93* 4.00 -- 3.02 HA1C 5.6 -- -- 5.6 -- Recent Labs 02/11/24 0210 CHLPL 173 TRIG 174 HDL 44 LDLCHOL 94 CHOLHDL 3.9 Recent Labs 04/17/23 1944 04/17/23 0333 GLUCOSE -- 89 POCGLU 128 -- Latest Reference Range & Units 02/09/23 03:55 04/17/23 03:33 Sed Rate 2 - 39 mm/hr 15 12 CRP <=4.9 mg/L <3.0 <3.0 OSH [facility] troponin ~500. EKG: Sinus bradycardia, 47 bpm, PAC, possible left atrial enlargement, possible lateral infarct, QTc 511. Telemetry: I have personally reviewed and interpreted the telemetry from the last 24 hours. Resultsshow sinus bradycardia with HR 50s, PVCs, heart rate climbs to 70s with activity.. Imaging: [facility] 04/18/23 Conclusions: * Nonobstructive coronary [...] motion has increased. CTA PE protocol at [facility]- no PE but showed small pericardial [...] acute aortopathy. 4. No acute pulmonary findings. [facility] 06/09/2021-RA 4, PA 38/15 (24) PCWP 11, CO/CI 3.14/1.6. [facility] 08/30/2019-normal coronary arteries. Assessment & [...] disease secondary to obesity who presented to [facility] on 04/16 with chest pain responsive to SL NTG. Troponin ~500x2. Transferred to [facility] for further evaluation. Troponin at [facility], 24>23. Reports exertional chest pressure and dyspnea [...] continues. Diet: Daily Healthy Menu Choices/Cardiac diet ([facility]-Diet) 2 GM NA; 2000 mL FLUID DVT Prophylaxis: DOAC Code status: Attempt Cardiopulmonary Resuscitation - Inpatient Disposition: Discharge Location: AM-[facility] Basic Mobility Raw Score: 24 PT: OT: PCP JOCY Franco [phone] Discussed with MD Carrol Aly PA-C APP1 Pager: [phone] 04/19/2023 * Alex Lew RCP - 04/18/2023 [...] were not included. CARDIOLOGY APP1 - [facility] DAILY PROGRESS NOTE Page [phone] to reach a provider 28/09 Admit Date: [...] breathlessness. Awaiting cardiac catheterization potentially today if Painting Supervisor availability allows.She remains on ACS therapies. [...] 24* PROBNP -- 867* Endocrine Recent Labs 04/18/2320904/17/23 0333 02/08/23 2208 09/27/22 0307 09/26/22 1750 [...] motion has increased. CTA PE protocol at [facility]- no PE but showed small pericardial [...] ongoing chest pain -C 04/18 depending on Painting Supervisor availability. #Hx of pAfib #Hx of [...] Resuscitation - Inpatient Disposition: Discharge Location: [facility] Basic Mobility Raw Score: 24 PT: OT: PCP JOCY Franco [phone] Discussed with MD Kurt Sheppard PA-C APP1 pager [phone] 04/18/2023 * Kurt Silveira PA - 04/17/2023 7:15 AM EST Images from the original note were not included. CARDIOLOGY APP1 - [facility] DAILY PROGRESS NOTE Page [phone] to reach a provider 28/09 Admit Date: [...] motion has increased. CTA PE protocol at [facility]- no PE but showed small pericardial [...] PA 38/15 (24) PCWP 11, CO/CI 3.14/1.6. [facility] 08/30/2019-normal coronary arteries. Assessment & [...] or NTG drip if ongoing chest pain -[facility] 04/18 or 04/19 depending on Painting Supervisor availability. #Hx of pAfib #Hx of AVNRT sp EPS and Ablation - hold eliquis. Last taken on 04/16/23 am. - Continue IV heparin. # Hx of PE- continue with IV heparin Diet: No diet orders on file DVT Prophylaxis: DOAC Code status: Attempt Cardiopulmonary Resuscitation - Inpatient Disposition: Discharge Location: [facility] Basic Mobility Raw Score: 14 PT: OT: PCP JOCY Franco [phone] Discussed with MD Kurt Sheppard PA-C APP1 pager [phone] 04/17/2023 documented in this encounter H&P Notes [...] 04/01/[address] Tovar on [facility], restrictive lung disease secondary to obesity [...] consistent with previous recordings. Troponin levels at [facility] showed a plateau at 23 > 27. [...] again 10/15, improving with sublingua Nitro. 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 fluticasone propionate (FLONASE) 50 mcg/actuation [place], Suspension 1 spray by Each Nare route [...] 04/01/[address] Tovar on [facility], restrictive lung disease secondary to obesity [...] (see comments), grab bar - tub/shower (CPAP [facility]) DME Needed at Discharge: N/A Patient is insured through: Primary Insurance: [employer] [place] [employer] [place] / Plan[place] / Product Type: *No Product type* / Secondary Insurance: N/A Prescription Coverage: Yes This plan was formulated with input from patient and team. All are in agreement with plan. * Consult Note - Maegan Mike APRN - 04/22/2023 10:38 AM EST Images from the original note were not included. [facility] [place] [place] [address] INPATIENT CARDIOLOGY CONSULT PROGRESS NOTE Interval events: [...] with MD Maegan De Leon APRN Pager [phone] 04/22/2023 Associated attestation - Jaspreet Kinsey MD [...] Tatum MSW - 04/20/2023 2:22 PM EST SERVICE PLANNER received a consult to support patient with financial concerns. SERVICE PLANNER met with patient and introduced self. Patient stated due to hospitalization, she has been out of work and feeling stress around not being able to pay bills. I have a car payment and other bills and it's like I have to choose which one to pay and which one not to pay. SERVICE PLANNER validated patient's stress around financial concerns. SERVICE PLANNER asked patient if she has applied for [employer] or any other state benefits. Patient stated that she has, but is over the household income criteria to qualify for benefits. Patient shared that she owns her home outright and mainly concerned about making her car payment and transportation home. MSWstated that care management will help arrange for a ride, if needed. SERVICE PLANNER provided patient with community resources such as the [facility] Food Directory, the [facility] Community Action phone number, and the [facility] [employer] on Aging contact info. SERVICE PLANNER available to support patient should anything else [...] Admitted From: Transfer from another hospital Location: [facility] Reason for Hospitalization: chest pain and cough Covid Vaccination Status: 1st, 2nd & booster Last COVID test: Lab Results Component Value Date [id number] Not Detected 06/13/2021 Past medical History: Past [...] has the electric, gas, oil, or water Around [employer] threatened to shut off services in your home?: Yes ([employer] is currently threatening to shut off electricity [...] Medical) [address] [place] [facility] [address] Social & Family Supports: All names listed below confirmed with patient as current and correct Extended Emergency Contact Information Primary Emergency Contact: NeishaBoby Mobile Relation: Spouse Secondary Emergency Contact: BOOGIETOÑITOTALI [...] Specific Information: N/A Health/Prescription Coverage: Primary Insurance: [employer] [facility] [place] Payor: [employer] [facility] [place] / Plan: [facility] [place] / Product Type: *No Product type* / Secondary Insurance: N/A ; Prescription Coverage: Yes Preferred Pharmacy: [facility] - [place], [place] - [address] [address] [facility] - [place], [place] - [address] [facility] [address] [place] Status: Patient is a : No Primary Care Provider confirmed: JOCY Franco [phone] Patient/Caregiver Goals of Treatment: home w / family when MR Potential Needs for Transition of Care: other (see comments) (SERVICE PLANNER support; pt's spouse was denied twice for [...] Concerns to be Addressed: financial/insurance, discharge planning; SERVICE PLANNER consult placed to discuss available resources Assessment: [...] [facility] [address] [place] [address] INPATIENT CARDIOLOGY CONSULT NOTE Reason for Consult: [...] ACS with DAPT and heparin prior to [facility] 04/18, which was negative for [...] %] A/P. Post cardiac cath without complications. JOCY Trujillo-C 04/18/2023 * Plan of Care - Malia [...] Went to cathlab, came back ~1115am, s/p [facility] with no coronary artery disease [...] for further details. JOCY Marie 04/17/2023 Pager [phone] * Plan of Care - Sudhakar Smith [...] PM EDT Office [place] [address] [place] [address] documented as of this encounter Procedures Procedure [...] questions please contact the health health care facilities inspector that requested your imaging first. ? 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 Following IV administration of 26.5 mCi technetium 99m sestamibi, SPECT-CT of the heart was obtained. Following IV injection of 8.8 mCi 02-iqylxb-0-deoxyglucose (FDG) and a standard uptake of approximately [...] obtained. Following IV injection of 8.8 mCi 44-vszmse-9-deoxyglucose (FDG) and astandard uptake of approximately 60 [...] have questions please contactthe health health care facilities inspector that requested your imaging first. Electronically signed by: Humberto Qureshi MD, [facility]([phone]), at 05/06/2023 11:09 AM Maegan L Stender G[facility] IMG PET ORDERABLE S * MRI Cardiac [...] questions please contact the health health care facilities inspector that requested your imaging first. ? Narrative [...] have questions please contactthe health health care facilities inspector that requested your imaging first. Lloyd Maloney MD IM MRI ORDERABLES * Hemogram (04/21/2023 3:40 AM EST) White Blood Cell 7.1 4.0 - 9.5 x10(3)/[facility] LABOR[facility] Red Blood Cell 4.59 4.00 - 5.21 x10(6)/[facility] Hemoglobin 14.4 11.7 - 15.5 g/dL [facility] Hematocrit 43.0 35.7 - 45.8 % [facility] Mean Cell Volume 93.7 82.6 - 94.4 fL [facility] Mean Cell Hemoglobin 31.4 27.1 - 32.0 pg [facility] Mean Cell Hemoglobin Concentration 33.5 31.7 - 35.0 g/dL [facility] Platelet 221 145 - 357 x10(3)/[facility] RDW Standard Deviation 43.5 37.0 - 46.0 fL [facility] RDW coefficient of variation 12.6 11.5 - 14.1 % [facility] Mean Platelet Volume 11.1 7.6 - 12.9 fL [facility] NRBC% auto 0.0 % [facility] LABOR[facility] NRBC Absolute 0.000 0.000 - 0.000 x10(3)/[facility] Blood 04/21/2023 3:40 AM EST 04/21/2023 3:58 AM EST Narrative Resulting Agency Comment Spec In Lab Ailyn Knight MD HEMATOLOGY ORDERABLE S [facility] [place] [address] * (ABNORMAL) BMP w/fasting Glucose (04/21/2023 3:40 AM EST) Glucose Fasting 107(H) 65 - 99 mg/dL [facility] Comment: ?Fasting* Glucose Interpretive [...] of Diabetes Mellitus, Position Statement from the [employer]. ??Diabetes Care, Volume 33, Supplement 1, Mar 2009 Blood Urea Nitrogen 20(H) 8 - 18 mg/dL [facility] Creatinine 1.14 0.70 - 1.20 mg/dL [facility] Sodium 138 135 - 145 mmol/L [facility] Potassium 3.8 3.5 - 5.0 mmol/L [facility] Comment: Please note: ??Patients with WBC >100,000 may have falsely elevated Potassium levels. ??For accurate Potassium quantification in these patients send serum separator tube (gold top) for subsequent determinations. ??Contact the Clinical Chemistry Laboratory if there are any questions. Chloride 106 98 - 107 mmol/L [facility] Carbon Dioxide 22 22 - 31 mmol/L [facility] Anion Gap 10 5 - 15 mmol/L [facility] Calcium 9.2 8.5 - 10.5 mg/dL [facility] Est Glomerular Filtration Rate 57(L) >=60 mL/min/1. 73 m?? [facility] Comment: This patient's estimated [...] Knight MD CHEMISTRY ORDERABLES Performing Organization Address City/[facility] Co de Phone Number [facility] [place] [address] * Magnesium (04/21/2023 3:40 AM EST) Magnesium 0.90 0.69 - 1.07 mmol/L [facility] Blood 04/21/2023 3:40 AM EST 04/21/2023 3:58 AM EST Narrative Resulting Agency Comment Spec In Lab Ailyn Knight MD CHEMISTRY ORDERABLES Performing Organization Address [facility] de Phone Number [facility] [place] [address] * (ABNORMAL) Troponin (04/20/2023 4:44 PM EST) Troponin-T, High Sensitivity 26(H) <=14 ng/L [facility] Comment: This patient's troponin [...] troponin value can be found in the [facility] Laboratory Test Catalog Troponin - [facility] Laboratory Test Catalog Reference: Fourth Jackson Definition of Myocardial Infarction. Journal of the [place] College [employer] 2018;72:4718-4552 Blood 04/20/2023 4:44 PM EST 04/20/2023 4:53 PM EST Narrative Resulting Agency Comment Spec In Lab Eufemia Copeland MD [place] [address] * Duplex for DVT, Arm, Unilat (04/20/2023 4:22 PM EST) VB Text Report Department: Vascular Surgery Lab Patient: [id number] (LOIDA MADRIGAL) CPT: 57887 Referring Physician: LLOYD MALONEY ?? Phone: Indications: [...] EST) Troponin-T, High Sensitivity 27(H) <=14 ng/L [facility] Comment: This patient's troponin [...] value can be found in the [facility] Laboratory Test Catalog Troponin - [facility] Laboratory Test Catalog Reference: Fourth Jackson Definition of Myocardial Infarction. Journal of the [employer] 2018;72:4830-6258 Blood 04/20/2023 1:47 PM EST 04/20/2023 2:18 PM EST Narrative Resulting Agency Comment Spec In Lab Eufemia Copeland MD CHEMISTRY ORDERABL ES [facility] [place] [address] * (ABNORMAL) Troponin (04/20/2023 10:48 AM EST) Troponin-T, High Sensitivity 24(H) <=14 ng/L [facility] Comment: This patient's troponin [...] value can be found in the [facility] Laboratory Test Catalog Troponin - [facility] Laboratory Test Catalog Reference: Fourth Jackson Definition of Myocardial Infarction. Journal of the [employer] 2018;72:9609-8429 Blood 04/20/2023 10:4 8 AM EST 04/20/2023 11:03 AM EST Narrative Resulting Agency Comment Spec In Lab Eufemia Copeland MD CHEMISTRY ORDERABL ES [facility] [place] [id number] * EKG 12 Lead (04/20/2023 10:23 AM EST) Ventricular rate 60 BPM MUSE SYSTEM Atrial Rate 60 BPM MUSE SYSTEM P-R Interval 170 ms MUSE SYSTEM QRS Duration 86 ms MUSE SYSTEM Q-T Interval 470 ms MUSE SYSTEM QTC Calculated (Bezet) 470 ms MUSE SYSTEM Calculated P [place] 39 degrees MUSE SYSTEM Calculated R [place] 63 degrees MUSE SYSTEM Calculated T [place] -16 degrees MUSE SYSTEM INTERPRETATION Normal sinus [...] leads Confirmed by MD Benitez Gregory A. ([id number]) on 04/22/2023 12:10:07 PM MUSE SYSTEM 04/20/2023 10:2 3 AM EST 04/22/2023 12:10 PM EST Lloyd Maloney MD ECG ORDERABLES MUSE SYSTEM * Hemogram (04/20/2023 3:11 AM EST) White Blood Cell 6.6 4.0 - 9.5 x10(3)/[facility] Red Blood Cell 4.59 4.00 - 5.21 x10(6)/[facility] Hemoglobin 14.2 11.7 - 15.5 g/dL [facility] Hematocrit 42.7 35.7 - 45.8 % [facility] Mean Cell Volume 93.0 82.6 - 94.4 fL [facility] Mean Cell Hemoglobin 30.9 27.1 - 32.0 pg [facility] Mean Cell Hemoglobin Concentration 33.3 31.7 - 35.0 g/dL [facility] Platelet 231 145 - 357 x10(3)/[facility] RDW Standard Deviation 43.6 37.0 - 46.0 fL [facility] RDW coefficient of variation 12.6 11.5 - 14.1 % [facility] Mean Platelet Volume 11.0 7.6 - 12.9 fL [facility] NRBC% auto 0.0 % [facility] NRBC Absolute 0.000 0.000 - 0.000 x10(3)/[facility] Blood 04/20/2023 3:11 AM EST 04/20/2023 3:24 AM EST Narrative Resulting Agency Comment Spec In Lab Ailyn Knight MD HEMATOLOGY ORDERABLE S [facility] [place] [address] * (ABNORMAL) BMP w/fasting Glucose (04/20/2023 3:11 AM EST) Glucose Fasting 107(H) 65 - 99 mg/dL [facility] Comment: ?Fasting* Glucose Interpretive [...] of Diabetes Mellitus, Position Statement from the [employer]. ??Diabetes Care, Volume 33, Supplement 1, Mar 2009 Blood Urea Nitrogen 20(H) 8 - 18 mg/dL [facility] Creatinine 1.05 0.70 - 1.20 mg/dL [facility] Sodium 139 135 - 145 mmol/L [facility] Potassium 3.6 3.5 - 5.0 mmol/L [facility] Comment: Please note: ??Patients with WBC >100,000 may have falsely elevated Potassium levels. ??For accurate Potassium quantification in these patients send serum separator tube (gold top) for subsequent determinations. ??Contact the Clinical Chemistry Laboratory if there are any questions. Chloride 106 98 - 107 mmol/L [facility] Carbon Dioxide 21(L) 22 - 31 mmol/L [facility] Anion Gap 12 5 - 15 mmol/L [facility] Calcium 9.3 8.5 - 10.5 mg/dL [facility] Est Glomerular Filtration Rate 63 >=60 mL/min/1. 73 m?? [facility] Comment: This patient's estimated [...] Knight MD CHEMISTRY ORDERABLES Performing Organization Address City/[facility]/ZIP Co de Phone Number [facility] [place] [address] * Magnesium (04/20/2023 3:11 AM EST) Magnesium 0.91 0.69 - 1.07 mmol/L [facility] Blood 04/20/2023 3:11 AM EST 04/20/2023 3:24 AM EST Narrative Resulting Agency Comment Spec In Lab Ailyn Knight MD CHEMISTRY ORDERABLES Performing Organization Address [facility] Co de Phone Number [facility] [place] [address] * Respiratory Panel PCR (04/19/2023 2:05 PM EST) Respiratory Panel Source [employer] [facility] Respiratory Panel PCR Negative Negative [facility] Comment: Respiratory Panels are performed on the [employer], using multiplexed PCR nucleic acid detection. ??Negative results do not preclude respiratory infection and should not be used as the sole basis for diagnosis, treatment or other management decisions. Adenovirus Not Detected Not Detected [facility] Coronavirus HKU1 Not Detected Not Detected [facility] Coronavirus NL63 Not Detected Not Detected [facility] Coronavirus 229E Not Detected Not Detected [facility] Coronavirus OC43 Not Detected Not Detected [facility] SARS-CoV-2 Not Detected Not Detected [facility] Comment: Testing for SARS-CoV-2 (Severe acute respiratory syndrome coronavirus 2) to aid in the diagnosis of COVID-19 is performed using the [employer] Respiratory Panel 2.1 ([employer]) as authorized by the FDA issued Emergency Use Authorization (EUA). This panel also tests for multiple other viral and bacterial pathogens. This assay is intended for In-vitro Diagnostic (IVD) use with nasopharyngeal swabs in viral transport media. The assay is performed based on the instructions for use and additional guidance provided by the FDA. Testing is performed in laboratories within the [facility], each of which is certified under [...] fact sheets at the following FDA website: https://www.fda.gov/medical-devices/jikfepkrgpe-xtwyrjx-1594-vljip-29-scobuzmkw- use-a mazjycxmcqkvu-aztyfmn-jsxotgs/qgemo-syiaxbagxbr-dbeo Human Metapneumovirus Not Detected Not Detected [facility] Human Rhinovirus/Enterov irus Not Detected Not Detected [facility] Influenza A Not Detected Not Detected [facility] Influenza B Not Detected Not Detected [facility] Parainfluenza 1 Not Detected Not Detected [facility] Parainfluenza 2 Not Detected Not Detected [facility] Parainfluenza 3 Not Detected Not Detected [facility] Parainfluenza 4 Not Detected Not Detected [facility] Respiratory Syncytial Virus Not Detected Not Detected [facility] Chlamydophila pneumoniae Not Detected Not Detected [facility] Mycoplasma pneumoniae Not Detected Not Detected [facility] Nasopharyngeal Swab Other / Unknown 04/19 2:05 PM EST 04/19/2023 3:16 PM EST Narrative Resulting Agency Comment Spec In Lab Carrol SANDRA MICROBIOLOGY - GENER AL ORDERABLES Performing Organization Address City/[facility] Co de Phone Number [facility] [place] [address] * (ABNORMAL) Urine culture (04/19/2023 10:25 AM EST) Urine Culture 10,000-49,000 cfu/ml mixed mucosal elmer Note: Culture shows multiple bacterial species suggesting mucosal contamination. (A) [facility] Clean Catch Urine 04/19/2023 10:25 AM EST 04/19/2023 12:49 PM EST Narrative Resulting Agency Comment Spec In Lab Carrol SANDRA MICROBIOLOGY - GENER AL ORDERABLES Performing Organization Address [facility] Co de Phone Number [facility] [place] [address] * (ABNORMAL) Urinalysis Microscopic Exam (04/19/2023 10:25 AM EST) RBC, Urine 1 0 - 4 /HPF [facility] WBC, Urine 10(H) 0 - 5 /HPF [facility] Squamous Epithelial Cells Raw Data, Urine 4 <=4 /HPF [facility] Hyaline Casts, Urine 1 0 - 2 /LPF [facility] Clean Catch Urine 04/19/2023 10:25 AM EST 04/19/2023 11:08 AM EST Narrative Resulting Agency Comment Spec In Lab Carrol SANDRA URINE ORDERABLES Performing Organization Address [facility] Co de Phone Number [facility] [place] [address] * (ABNORMAL) Urinalysis with reflex Culture (04/19/2023 10:25 AM EST) Glucose, Urine Dipstick >=1000(Criti edy) Negative mg/dL [facility] Comment: Urinalysis result NOT critical without a combination of Glucose greater than or equal to 500 mg/dL AND Ketones greater than or equal to 80 mg/dL Protein, Urine Dipstick Negative Negative mg/dL [facility] Bilirubin, Urine Dipstick Negative Negative mg/dL [facility] Comment: Clinical correlation required for positive Urine Bilirubin results as false positive may occur with some drugs and drug related products. If a false positive is suspected a serum total bilirubin should be considered if clinically indicated. Urobilinogen, Urine Dipstick Normal Normal mg/dL [facility] pH, Urn (dipstick) 5.5 5.0 - 8.0 [facility] Blood, Urine Dipstick Negative Negative mg/dL [facility] Ketone, Urine Dipstick Negative Negative mg/dL [facility] Nitrite, Urine Dipstick Negative Negative [facility] Leukocytes, Urine Dipstick Small(A) Negative mcL [facility] Appearance, Urine Dipstick Clear Clear [facility] Specific [place] Urine Automated 1.024 1.005 - 1.030 [facility] Color, Urine Dipstick Yellow Yellow [facility] Reflex to Culture Yes [facility] Clean Catch Urine 04/19/2023 10:25 AM EST 04/19/2023 11:08 AM EST Narrative Resulting Agency Comment Spec In Lab Ailyn Knight MD URINE ORDERABLES Performing Organization Address City/State/[facility] Co de Phone Number [facility] [place] [address] * Arterial Duplex Arm, Unilat (04/19/2023 9:40 AM EST) VB Text Report Department: Vascular Surgery Lab Patient: [id number] (LOIDA MADRIGAL) CPT: 56539 Referring Physician: AILYN KNIGHT ?? Phone: Indications: [...] by: BRIANNA MCDOWELL on 2023-04-26 01:08:34 AM [employer] VB Text Report End of Report [facility] 04/19/2023 9:40 AM EST Ailyn Kngiht MD VASCULAR ORDERABLES [facility] * Hemogram (04/19/2023 2:40 AM EST) White Blood Cell 7.5 4.0 - 9.5 x10(3)/[facility] Red Blood Cell 4.86 4.00 - 5.21 x10(6)/[facility] Hemoglobin 14.8 11.7 - 15.5 g/dL [facility] Hematocrit 45.5 35.7 - 45.8 % [facility] Mean Cell Volume 93.6 82.6 - 94.4 fL [facility] Mean Cell Hemoglobin 30.5 27.1 - 32.0 pg [facility] Mean Cell Hemoglobin Concentration 32.5 31.7 - 35.0 g/dL [facility] Platelet 240 145 - 357 x10(3)/[facility] RDW Standard Deviation 43.8 37.0 - 46.0 fL [facility] RDW coefficient of variation 12.7 11.5 - 14.1 % [facility] Mean Platelet Volume 11.0 7.6 - 12.9 fL [facility] NRBC% auto 0.0 % [facility] NRBC Absolute 0.000 0.000 - 0.000 x10(3)/[facility] Blood 04/19/2023 2:40 AM EST 04/19/2023 2:57 AM EST Narrative Resulting Agency Comment Spec In Lab Ailyn Knight MD HEMATOLOGY ORDERABLE S [facility] [place] [address] * (ABNORMAL) BMP w/fasting Glucose (04/19/2023 2:40 AM EST) Glucose Fasting 106(H) 65 - 99 mg/dL [facility] Comment: ?Fasting* Glucose Interpretive [...] of Diabetes Mellitus, Position Statement from the [employer]. ??Diabetes Care, Volume 33, Supplement 1, Mar 2009 Blood Urea Nitrogen 22(H) 8 - 18 mg/dL [facility] Creatinine 1.11 0.70 - 1.20 mg/dL [facility] Sodium 139 135 - 145 mmol/L [facility] Potassium 4.0 3.5 - 5.0 mmol/L [facility] Comment: Please note: ??Patients with WBC >100,000 may have falsely elevated Potassium levels. ??For accurate Potassium quantification in these patients send serum separator tube (gold top) for subsequent determinations. ??Contact the Clinical Chemistry Laboratory if there are any questions. Chloride 105 98 - 107 mmol/L [facility] Carbon Dioxide 20(L) 22 - 31 mmol/L [facility] Anion Gap 14 5 - 15 mmol/L [facility] Calcium 9.5 8.5 - 10.5 mg/dL [facility] Est Glomerular Filtration Rate 59(L) >=60 mL/min/1. 73 m?? [facility] Comment: This patient's estimated [...] In Lab Ailyn Knight MD CHEMISTRY ORDERABLES [facility] [place] [address] * Magnesium (04/19/2023 2:40 AM EST) Magnesium 0.97 0.69 - 1.07 mmol/L [facility] Blood 04/19/2023 2:40 AM EST 04/19/2023 2:57 AM EST Narrative Resulting Agency Comment Spec In Lab Ailyn Knight MD CHEMISTRY ORDERABLES [facility] [place] [address] * CARDIAC CATHETERIZATION (04/18/2023 11:05 AM EST) Anatomical Region Laterality Modality Other Narrative 04/19/2023 6:57 AM EST ?[facility] ? Cardiac Catheterization/Intervention Report ? Patient Name: Neisha, Loida ? Procedure Date: 04/18/2023 ? A #: [id number] ? Primary Physician: Dustin Carrasco ? Case #: [id number] ? File Name: [id number] ? Catheterization Order Number: [id number] ? [facility] ? Final Report [place], [place] ? Patient Name: ? Loida Neisha ? ID#: ?[id number] ? : ?1970 ? Procedure Date: ? [...] procedure was Urgent. The indication for ?the medical lab director visit is ACS greater than [...] Procedure Note Dustin Carrasco MD - 05/03/[address] [facility] Cardiac Catheterization/Intervention Report Patient Name: Loida Madrigal Procedure Date: 04/18/2023 A #: [id number] Primary Physician: Dustin Carrasco Case #: [id number] File Name: [id number] Catheterization Order Number: [id number] [facility] FinalReport [place], [place] Patient Name: Loida Madrigal ID#:[id number] :1970 Procedure Date: April 18, 2023 Case #: [id number] Room: 6 Case Physician: Dustin Carrasco M.D. Start: : Admission:04/16/2023 Referring Physician: Stuart Iyer M.D. Procedures: [...] designated as ASA Class III. The[facility] clinical frailty scale is 4: Vulnerable. [...] diagnostic procedure was Urgent. The indicationfor the medical lab director visit is ACS greater than [...] units of heparin were administered. A total [id number] of Omnipaque were opened, 65cc of Omnipaque were administered [id number] of Omnipaque were wasted. Radiation: Fluoro time [...] Dustin Carrasco M.D. Electronically Signed by: Dustin Crarasco M.D. Report Finalized: 04/18/2023 12:13 Report Last Ammended: 05/03/2023 07:49 Dustin Carrasco MD CARDIAC CATH ORDERAB LES * Heparin (unfractionated) Level (04/18/2023 8:23 AM EST) UF Heparin 0.39 IU/mL [facility] Comment: Heparin (anti-Xa) levels should be [...] Lab Lloyd Maloney MD HEMATOLOGY ORDERABLE S [facility] [place] [address] * Differential, Automated (04/18/2023 2:10 AM EST) Neutrophil % 51.4 % [facility] Neutrophil Absolute 3.43 1.70 - 6.10 x10(3)/[facility] Lymph % 33.8 % [facility] Lymphocytes Abs 2.2 0.9 - 3.2 x10(3)/[facility] Monocyte % 9.9 % [facility] Monocyte Abs 0.7 0.3 - 0.9 x10(3)/[facility] Eos % 3.9 % [facility] Eosinophils Abs 0.3 0.0 - 0.4 x10(3)/[facility] Basophil % 0.8 % [facility] Baso Absolute 0.0 0.0 - 0.1 x10(3)/[facility] Immature Gran % 0.20 % [facility] Comment: Immature granulocytes(IG's)percentage and absolute count will include metamyelocytes, myelocytes, and promyelocytes. Blood smears from CBCs yielding IG's will be scanned manually for concordance. If this scan disagrees with the automated IG or if promyelocytes are noted, a manual differential will be performed. Immature Gran Absolute 0.01 0.00 - 0.04 x10(3)/[facility] Blood 04/18/2023 2:10 AM EST 04/18/2023 2:44 AM EST Narrative Resulting Agency Comment Spec In Lab Lloyd Maloney MD HEMATOLOGY ORDERABLE S [facility] [place] [address] * Hemogram (04/18/2023 2:10 AM EST) White Blood Cell 6.7 4.0 - 9.5 x10(3)/[facility] Red Blood Cell 4.93 4.00 - 5.21 x10(6)/[facility] Hemoglobin 15.2 11.7 - 15.5 g/dL [facility] Hematocrit 44.9 35.7 - 45.8 % [facility] Mean Cell Volume 91.1 82.6 - 94.4 fL [facility] Mean Cell Hemoglobin 30.8 27.1 - 32.0 pg [facility] Mean Cell Hemoglobin Concentration 33.9 31.7 - 35.0 g/dL [facility] Platelet 233 145 - 357 x10(3)/[facility] RDW Standard Deviation 42.0 37.0 - 46.0 fL [facility] RDW coefficient of variation 12.8 11.5 - 14.1 % [facility] Mean Platelet Volume 11.3 7.6 - 12.9 fL [facility] NRBC% auto 0.0 % [facility] NRBC Absolute 0.000 0.000 - 0.000 x10(3)/[facility] Blood 04/18/2023 2:10 AM EST 04/18/2023 2:44 AM EST Narrative Resulting Agency Comment Spec In Lab Lloyd Maloney MD HEMATOLOGY ORDERABLE S Performing Organization Address City/[facility]/ZIP Co de Phone Number [facility] [place] [address] * Heparin (unfractionated) Level (04/18/2023 2:10 AM EST) UF Heparin 0.50 IU/mL [facility] Comment: Heparin (anti-Xa) [...] CENTER Co de Phone Number [facility] [place] [address] * (ABNORMAL) BMP w/fasting Glucose (04/18/2023 2:10 AM EST) Glucose Fasting 98 65 - 99 mg/dL [facility] Comment: ?Fasting* Glucose Interpretive [...] of Diabetes Mellitus, Position Statement from the [employer]. ??Diabetes Care, Volume 33, Supplement 1, Mar 2009 Blood Urea Nitrogen 23(H) 8 - 18 mg/dL [facility] Creatinine 1.18 0.70 - 1.20 mg/dL [facility] Sodium 143 135 - 145 mmol/L [facility] Potassium 3.6 3.5 - 5.0 mmol/L [facility] Comment: Please note: ??Patients with WBC >100,000 may have falsely elevated Potassium levels. ??For accurate Potassium quantification in these patients send serum separator tube (gold top) for subsequent determinations. ??Contact the Clinical Chemistry Laboratory if there are any questions. Chloride 107 98 - 107 mmol/L [facility] Carbon Dioxide 24 22 - 31 mmol/L [facility] Anion Gap 12 5 - 15 mmol/L [facility] Calcium 9.2 8.5 - 10.5 mg/dL [facility] Est Glomerular Filtration Rate 55(L) >=60 mL/min/1. 73 m?? [facility] Comment: This patient's estimated [...] Knight MD CHEMISTRY ORDERABLES Performing Organization Address [facility] Co de Phone Number [facility] [place] [address] * Magnesium (04/18/2023 2:10 AM EST) Magnesium 1.02 0.69 - 1.07 mmol/L [facility] Blood 04/18/2023 2:10 AM EST 04/18/2023 2:44 AM EST Narrative Resulting Agency Comment Spec In Lab Ailyn Knight MD CHEMISTRY ORDERABLES Performing Organization Address [facility] Co de Phone Number [facility] [address] * LDL Cholesterol, Direct (04/18/2023 2:10 AM EST) LDL Cholesterol, Direct 105 mg/dL [facility] Comment: Lowest Risk: <100 mg/dL Lower Risk: 100-129 mg/dL Borderline High Risk: 130-159 mg/dL High Risk: 160-189 mg/dL Very High Risk: >dt=735 mg/dL Blood 04/18/2023 2:10 AM EST 04/18/2023 2:44 AM EST Narrative Resulting Agency Comment Spec In Lab Lloyd Maloney MD CHEMISTRY ORDERABLES Performing Organization Address [facility] Co de Phone Number [facility] [place] [address] * Hemoglobin A1c (04/18/2023 2:10 AM EST) Hemoglobin A1c 5.6 4.3 - 5.6 % [facility] Comment: Reference Range: 4.3 [...] Mellitus, Diabetes Care 2013; 36: Suppl. 1, S67-76 Estimated Average Glucose 115 mg/dL [facility] Blood 04/18/2023 2:10 AM EST 04/18/2023 2:44 AM EST Narrative Resulting Agency Comment Spec In Lab Lloyd Maloney MD CHEMISTRY ORDERABLES Performing Organization Address [facility] Co de Phone Number [facility] [place] [address] * Lipid Panel (Reflex Direct LDL) (04/18/2023 2:10 AM EST) Cholesterol, Total 173 mg/dL [facility] Comment: Lower Risk: <200 mg/dL Average Risk: 200-239 mg/dL Higher Risk: >bw=094 mg/dL Triglyceride 174 mg/dL [facility] Comment: Average Risk/Lower Risk: <150 mg/dL Borderline High Risk: 150-199 mg/dL High Risk: 200-499 mg/dL Very High Risk: >re=445 mg/dL HDL Cholesterol 44 mg/dL [facility] Comment: Males: ?? Higher Risk: <40 mg/dL Females: ?? Higher Risk: <50 mg/dL LDL Cholesterol 94 mg/dL [facility] Comment: Lowest Risk: <100 mg/dL Lower Risk: 100-129 mg/dL Borderline High Risk: 130-159 mg/dL High Risk: 160-189 mg/dL Very High Risk: >lr=041 mg/dL Cholesterol/HDL Ratio 3.9 ratio [facility] Lipid Interpretation See Note [facility] Comment: Lipid management should be guided by a patient? s ASCVD risk, goals and preferences. ACC/AHA Guidelines recommend high intensity statin if clinical ASCVD or LDL greater than or equal to 190 mg/dL. http://[email or web address].Dada Room/OEA-QSX-Svvdunftr Adults aged 40-75 with LDL 70-189 mg/dL should have their 10 year ASCVD risk estimated with the ACC/AHA ASCVD risk lumber estimator http://tools.acc.org/WAFUJ-Wrrg-Hdvydwzbf/ Statin should be discussed if risk greater [...] In Lab Lloyd Maloney MD CHEMISTRY ORDERABLES [facility] [place] [address] * POCT Glucose (04/17/2023 7:44 PM EST) Glucose, POC 128 65 - 199 mg/dL [facility] Comment: Supplemental ranges: <140 mg/dL before meals <180 mg/dL all other times of the day Blood 04/17/2023 7:44 PM EST 04/17/2023 7:44 PM EST Ailyn Knight MD POINT OF CARE TEST O RDERABLES Performing Organization Address [facility] Co de Phone Number [facility] [place] [address] * (ABNORMAL) Heparin (unfractionated) Level (04/17/2023 6:01 PM EST) UF Heparin 1.14(Crit ical) IU/mL [facility] Comment: Critical Result called [...] S Performing Organization Address [facility] Co de Phone Number [facility] [place] [address] * (ABNORMAL) Heparin (unfractionated) Level (04/17/2023 12:45 PM EST) UF Heparin 1.39(Crit ical) IU/mL [facility] Comment: Critical Result called by ?? KAMARCUS CRITICAL Results read back by: ? Marta [...] Lab Ailyn Knight MD HEMATOLOGY ORDERABLE S [facility] [place] [address] * ECHO LMTD W CONTRAST W LMTD SPEC DOPP COLOR DOPP (04/17/2023 11:59 AM EST) EF 58 [facility] Anatomical Region Laterality Modality Cardiac Other 04/17/2023 10:2 4 AM EST Narrative 04/17/2023 12:09 PM [place] [address] [place] [address] ? Echocardiogram Report Name: LOIDA MADRIGAL ? Study Date: 04/17/2023 10:24 AMBP: 114/64 mmHg ? Patient Location: : 1970 ? Height: 160 cm ? Account: [id number] Age: 53 yrs ? Weight: 98 kg Gender: Female ?BSA: 2.0 m2 Ordering Physician: LLOYD MALONEY Referring Physician: LLOYD MALONEY Performed By: HAIM Becerra Reason For Study: Chest pain; NSTEMI Exam Location: [facility]. Interpretation Summary Left ventricle is [...] wall motion has increased. Procedure Limited - 02035. Image enhancement Optison was used for left [...] Note Jaspreet Kinsey MD - 04/17/2023 [address] [place] [address] Echocardiogram Report Name: LOIDA MADRIGAL Study Date: 410:24 AMBP: 114/64 mmHg Patient Location: : 1970 Height: 160 cm Account: [id number] Age: 53 yrs Weight: 98 kg Gender: Female BSA: 2.0 m2 Ordering Physician: LLOYD MALONEY Referring Physician: LLOYD MALONEY Performed By: HAIM Becerra Reason For Study: Chest pain; NSTEMI Exam Location: [facility]. Interpretation Summary Left ventricle is normal in size and wall thickness. Normal globalsystolic function with regional wall motion abnormalities as ascribed on the anterior/anterolateral aspect. Right ventricle is normal in size and systolic function. No significant cardiac valve findings. No pericardial effusion. Compared to prior study dated 02/09/2023, the extent of the anteriorabnormal wall motion has increased. Procedure Limited - 19119. Image enhancement Optison was used for left [...] AM EST) UF Heparin 1.41(Crit ical) IU/mL [facility] Comment: Critical Result called [...] Lab Lloyd Maloney MD HEMATOLOGY ORDERABLE S [facility] [place] [address] * (ABNORMAL) Troponin (04/17/2023 6:43 AM EST) Pathologist [facility] Troponin-T, High Sensitivity 23(H) <=14 ng/L [facility] Comment: This patient's troponin [...] value can be found in the [facility] Laboratory Test Catalog Troponin - [facility] Laboratory Test Catalog Reference: Fourth Jackson Definition of Myocardial Infarction. Journal of the [employer] College [employer] 2018;72:4682-1109 Blood 04/17/2023 6:43 AM EST 04/17/2023 6:52 AM EST Narrative Resulting Agency Comment Spec In Lab Lloyd Maloney MD CHEMISTRY ORDERABLES Performing Organization Address City/[facility]/ZIP Co de Phone Number [facility] [place] [address] * EKG 12 Lead (04/17/2023 3:41 AM EST) Ventricular rate 47 BPM MUSE SYSTEM Atrial Rate 47 BPM MUSE SYSTEM P-R Interval 186 ms MUSE SYSTEM QRS Duration 90 ms MUSE SYSTEM Q-T Interval 578 ms MUSE SYSTEM QTC Calculated (Bezet) 511 ms MUSE SYSTEM Calculated P [place] 24 degrees MUSE SYSTEM Calculated R [place] 23 degrees MUSE SYSTEM Calculated T [place] 27 degrees MUSE SYSTEM INTERPRETATION Sinus bradycardia with Premature atrial complexes Possible Left atrial enlargement Possible Lateral infarct , age undetermined Prolonged QT Abnormal ECG When compared with ECG of 01-APR-2023 12:28, Premature atrial complexes are now Present Vent. rate has decreased BY ??33 BPM Nonspecific T wave abnormality, improved in Anterior leads Confirmed by MD Angelo Danette ([id number]) on 04/20/2023 8:28:40 PM MUSE SYSTEM 04/17/2023 3:41 AM EST 04/20/2023 8:28 PM EST Lloyd Maloney MD ECG ORDERABLES Performing Organization Address City/[facility]/ZIP Co de Phone Number MUSE SYSTEM * Differential, Automated (04/17/2023 3:33 AM EST) Neutrophil % 54.4 % [facility] Neutrophil Absolute 4.02 1.70 - 6.10 x10(3)/mcL [facility] Lymph % 32.0 % [facility] Lymphocytes Abs 2.4 0.9 - 3.2 x10(3)/[facility] Monocyte % 8.7 % [facility] Monocyte Abs 0.6 0.3 - 0.9 x10(3)/[facility] Eos % 3.9 % [facility] Eosinophils Abs 0.3 0.0 - 0.4 x10(3)/[facility] Basophil % 0.7 % [facility] Baso Absolute 0.0 0.0 - 0.1 x10(3)/[facility] Immature Gran % 0.30 % [facility] Comment: Immature granulocytes(IG's)percentage and absolute count will include metamyelocytes, myelocytes, and promyelocytes. Blood smears from CBCs yielding IG's will be scanned manually for concordance. If this scan disagrees with the automated IG or if promyelocytes are noted, a manual differential will be performed. Immature Gran Absolute 0.02 0.00 - 0.04 x10(3)/[facility] Blood 04/17/2023 3:33 AM EST 04/17/2023 3:42 AM EST Narrative Resulting Agency Comment Spec In Lab Lloyd Maloney MD HEMATOLOGY ORDERABLE S Performing Organization Address City/State/[facility] Co de Phone Number [facility] [place] [address] * Hemogram (04/17/2023 3:33 AM EST) White Blood Cell 7.4 4.0 - 9.5 x10(3)/[facility] Red Blood Cell 4.79 4.00 - 5.21 x10(6)/[facility] Hemoglobin 14.8 11.7 - 15.5 g/dL [facility] Hematocrit 44.3 35.7 - 45.8 % [facility] Mean Cell Volume 92.5 82.6 - 94.4 fL [facility] Mean Cell Hemoglobin 30.9 27.1 - 32.0 pg [facility] Mean Cell Hemoglobin Concentration 33.4 31.7 - 35.0 g/dL [facility] Platelet 233 145 - 357 x10(3)/[facility] RDW Standard Deviation 43.4 37.0 - 46.0 fL [facility] RDW coefficient of variation 12.7 11.5 - 14.1 % [facility] Mean Platelet Volume 11.0 7.6 - 12.9 fL [facility] NRBC% auto 0.0 % [facility] NRBC Absolute 0.000 0.000 - 0.000 x10(3)/[facility] Blood 04/17/2023 3:33 AM EST 04/17/2023 3:42 AM EST Narrative Resulting Agency Comment Spec In Lab Lloyd Maloney MD HEMATOLOGY ORDERABLE S Performing Organization Address City/[facility] Co de Phone Number [facility] [place] [address] * Sedimentation rate (04/17/2023 3:33 AM EST) Sedimentation Rate Automated 12 2 - 39 mm/hr [facility] Comment: Effective February 15, 2019 new capillary photometric technology has resulted in a change in reference ranges. It is recommended that each ESR result be reviewed with its own age appropriate reference range. Blood 04/17/2023 3:33 AM EST 04/17/2023 3:42 AM EST Narrative Resulting Agency Comment Spec In Lab Lloyd Maloney MD HEMATOLOGY ORDERABLE S Performing Organization Address City/[facility]/ZIP Co de Phone Number [facility] [place] [place] [address] * CRP, acute inflammation (04/17/2023 3:33 AM EST) C-Reactive Protein <3.0 <=4.9 mg/L [facility] Blood 04/17/2023 3:33 AM EST 04/17/2023 3:42 AM EST Narrative Resulting Agency Comment Spec In Lab Lloyd Maloney MD CHEMISTRY ORDERABLES Performing Organization Address City/[facility]/ZIP Co de Phone Number [facility] [place] [place] [address] * (ABNORMAL) Troponin (04/17/2023 3:33 AM EST) Troponin-T, High Sensitivity 24(H) <=14 ng/L [facility] Comment: This patient's troponin [...] value can be found in the [facility] Laboratory Test Catalog Troponin - [facility] Laboratory Test Catalog Reference: Fourth Jackson Definition of Myocardial Infarction. Journal of the [employer] College [employer] 2018;72:2104-6879 Blood 04/17/2023 3:33 AM EST 04/17/2023 3:42 AM EST Narrative Resulting Agency Comment Spec In Lab Lloyd Maloney MD CHEMISTRY ORDERABLES [facility] [place] [address] * (ABNORMAL) APTT (04/17/2023 3:33 AM EST) Partial Thromboplastin Time 40(H) 25 - 37 sec [facility] Comment: The PTT is [...] S Performing Organization Address [facility] Co de Phone Number [facility] [place] [address] * (ABNORMAL) Prothrombin Time (04/17/2023 3:33 AM EST) Prothrombin Time 13.3(H) 9.4 - 12.5 sec [facility] International Normalization Ratio 1.2 [facility] Comment: An INR <2.0 [...] S Performing Organization Address [facility] Co de Phone Number [facility] [place] [address] * Hepatic Function Panel (04/17/2023 3:33 AM EST) Protein, Total 6.9 6.1 - 8.0 g/dL [facility] Albumin 4.2 3.2 - 5.2 g/dL [facility] Aspartate Aminotransferase Not Perf 0 - 30 [facility] Comment: Unable to quantitate due to sample hemolysis. ??Sample redraw suggested. Called by: Danny Bowles, Read back by: Nyla Cassidy, Date/Time:04/17/23 05:06. Alanine Aminotransferase 17 0 - 30 unit/L [facility] Alkaline Phosphatase 59 35 - 105 unit/L [facility] Bilirubin, Total 0.4 0.2 - 1.3 mg/dL [facility] Bilirubin, Direct 0.1 0.0 - 0.3 mg/dL [facility] Blood 04/17/2023 3:33 AM EST 04/17/2023 3:42 AM EST Narrative Resulting Agency Comment Spec In Lab Lloyd Maloney MD CHEMISTRY ORDERABLES [facility] [place] [address] * (ABNORMAL) pro-Brain Natriuretic Peptide (04/17/2023 3:33 AM EST) NT-proBNP 867(H) <=124 pg/mL [facility] Blood 04/17/2023 3:33 AM EST 04/17/2023 3:42 AM EST Narrative Resulting Agency Comment Spec In Lab Lloyd Maloney MD CHEMISTRY ORDERABLES Performing Organization Address City/[facility]/ZIP Co de Phone Number [facility] [place] [address] * (ABNORMAL) TSH (04/17/2023 3:33 AM EST) Thyroid Stimulating Hormone 5.93(H) 0.27 - 4.20 mcIU/mL [facility] Comment: Reference Interval (mcIU/mL): Females: ??First Trimester: 0.23-3.88 ??Second Trimester: 0.22-3.90 ??Third Trimester: 0.44-4.66 Blood 04/17/2023 3:33 AM EST 04/17/2023 3:42 AM EST Narrative Resulting Agency Comment Spec In Lab Lloyd Maloney MD CHEMISTRY ORDERABLES [facility] [place] [address] * Phosphorus (04/17/2023 3:33 AM EST) Phosphorus 4.1 2.5 - 4.5 mg/dL [facility] Blood 04/17/2023 3:33 AM EST 04/17/2023 3:42 AM EST Narrative Resulting Agency Comment Spec In Lab Lloyd Maloney MD CHEMISTRY ORDERABLES Performing Organization Address City/[facility]/ZIP Co de Phone Number [facility] [place] [address] * Magnesium (04/17/2023 3:33 AM EST) Magnesium 0.99 0.69 - 1.07 mmol/L [facility] Blood 04/17/2023 3:33 AM EST 04/17/2023 3:42 AM EST Narrative Resulting Agency Comment Spec In Lab Lloyd Maloney MD CHEMISTRY ORDERABLES Performing Organization Address [facility] Co de Phone Number [facility] [place] [address] * (ABNORMAL) Basic Metabolic Panel (non-fasting) (04/17/2023 3:33 AM EST) Glucose 89 65 - 199 mg/dL [facility] Comment:Diabetes: >=200 mg/d L plus symptoms Blood Urea Nitrogen 19(H) 8 - 18 mg/dL [facility] Creatinine 1.19 0.70 - 1.20 mg/dL [facility] Sodium 141 135 - 145 mmol/L [facility] Potassium 4.0 3.5 - 5.0 mmol/L [facility] Comment: Please note: ??Patients with WBC >100,000 may have falsely elevated Potassium levels. ??For accurate Potassium quantification in these patients send serum separator tube (gold top) for subsequent determinations. ??Contact the Clinical Chemistry Laboratory if there are any questions. Chloride 106 98 - 107 mmol/L [facility] Carbon Dioxide 22 22 - 31 mmol/L [facility] Anion Gap 13 5 - 15 mmol/L [facility] Calcium 9.4 8.5 - 10.5 mg/dL [facility] Est Glomerular Filtration Rate 54(L) >=60 mL/min/1. 73 m?? [facility] Comment: This patient's estimated [...] In Lab Lloyd Maloney MD CHEMISTRY ORDERABLES [facility] [place] [id number] * Film Library- Storage Only CT Chest [...] RN)2100 (Given - Provider: Zoila Rooney RN) 09 (Given - Provider: China Myers) atorvastatin (Lipitor) tablet 40 mg 40 mg, Oral, EVERY EVENING, First dose (after last modification) on Wed04/19/23 at 1700, Until Discontinued, Routine 1618 (Given - Provider: Chilo Nickerson RN) 1736 (Given - Provider: Charity Jackson, ERWIN) 1700 (Due) DULoxetine DR (Cymbalta) capsule 60 mg 60 mg, Oral, DAILY, First dose on Wed04/17/23 at 0900, Until Discontinued, Routine 0830 (Given - Provider: Chilo Nickerson RN) 0812 (Given - Provider: Charity Jackson RN) 0923 (Given - Provider: China Myers) gabapentin (Neurontin) [...] 08 (Given - Provider: Charity Jackson, ERWIN) 0925 (Given - Provider: China Myers) topiramate [...] 08 (Given - Provider: Charity Jackson, ERWIN) 09 (Given - Provider: China Myers) torsemide [...] documented as of this encounter Care Teams Document Control Supervisor Relationship Specialty Start Date End Date Polo Pearce PA [address] [place] [address] PCP - General Internal Medicine 06/09/21 documented as of this encounter
--- OUTSIDE RECORDS SUMMARY | 2024-04-10 17:08 | XMS_ITS | Encounter Summary ---
[place] [address] Care Team Providers Care Grip Name Role Phone Polo Pearce Primary Care Provider [phone] Reason for Visit * Diagnostic Test (Routine) - Closed Specialty Diagnoses / Procedures Referred By Jayant harris Referred To Contact Radiology Diagnoses Chest pain, unspecified type Procedures NM PET CT Cardiac Sarcoid Maegan Mike [facility] [address] [place] [address] Referral ID Status Reason Start Date Expiration Date V isits Requested Visits Authorized [id number] Closed Specialty Service Requested 04/22/2023 10/20/2024 4 4 Encounter Details Date Type Department Care Team (Latest Contact Info) Description 04/30/2023 11:05 AM EST Hospital Encounter [place] [address] Maegan Mike [facility] [place] [address] Discharge Disposition: Home Social History [...] by mouth nightly. empagliflozin (Jardiance) 10 mg TabletIndications:Meat Carver neal heart failure with preserved ejection fraction Take 1 tablet by mouth daily. 90 tablet 1 06/11/2021 rOPINIRole (Requip) 1 mg Tablet Take 2 mg by mouth 2 times daily. 07/16/2020 loratadine (Claritin) 10 mg Tablet Take 10 mg by mouth daily as needed. fluticasone propionate (FLONASE) 50 mcg/actuation [place], Suspension 1 spray by Each Nare [...] 3:00 PM EDT Office [place] [address] Mary Reyes, [employer] [place] [address] documented as of this encounter Procedures Procedure [...] mCi documented in this encounter Care Teams Grip Relationship Specialty Start Date End Date Polo Pearce PA [address] [place] [address] PCP - General Internal Medicine 06/09/21 documented as of this encounter
--- OUTSIDE RECORDS SUMMARY | 2024-04-10 17:09 | XMS_ITS | Encounter Summary ---
Author Organization [facility] [place] [address] Care Team Providers Care Clinical Education Manager Name Role Phone Polo Pearce Primary Care Provider [phone] Encounter Details Date Type Department Care Team (Late st Contact Info) Description 04/02/2023 Telephone Cardiology at [address] [phone] Ambreen Cartagena Social History Tobacco Use Types Packs/Day Years Used Date Smoking Tobacco: Never Smokeless Tobacco: Never Alcohol Use Standard Drinks/Week Comments Never 0 (1 standard drink = 0.6 oz pur e alcohol) [facility] Utilities Answer Date Recorded In the past 12 months has e [employer], gas, oil, or water [employer] threatened to shut off services in your [...] see this patient in follow up at [facility] in 2-3 months. She had SVT ablation 04/01/23. Message sent Mary at [facility] to get pt scheduled there for f/up. Ambreen Cartagena Sr. Clinical Procedure [place]/Poker Manager documented in this encounter Plan of Treatment Upcoming Encounters Date Type Department Care Team (Late st Contact Info) Description 07/19/2024 3:00 PM EDT Office Visit [place] [address] Mary Reyes, [place] [address] documented as of this encounter Visit Diagnoses Not on filedocumented in this encounter Care Teams Clinical Education Manager Relationship Specialty Start Date End Date Polo Pearce PA [address] [place] [id number] PCP - General Internal Medicine 06/09/21 documented as of this encounter
--- OUTSIDE RECORDS SUMMARY | 2024-04-10 17:09 | XMS_ITS | Encounter Summary ---
Author Organization [facility] Address [facility] [place] [address] Care Team Providers Care Sports Photographer Name Role Phone Polo Pearce Primary Care Provider [phone] Reason for Visit * Reason Comments Palpitations SVT Encounter Details Date Type Department Care Team (Late st Contact Info) Description 03/22/2023 4:20 PM EST Office Visit Cardiology at [address] [address] Jaspreet Kinsey MD [facility] [place] [address] SVT (supraventricular tachycardia); Pulmonary embolism without acute [...] in early February; she was transferred to [facility]. At that interface, amlodipine was discontinued due to mild peripheral edema, and bumex was changed to torsemide ( the latter for unclear reason). Ranexa was also initiated, as was aldactone; the latter to preserve eukalemia. The former was discontinued due to fogginess/dizziness, with quick resolution of symptoms. Since then, she has been doing well. She has been participating in cardiac rehab at [facility] and finds herself making [...] 30 DAYS fluticasone propionate (FLONASE) 50 mcg/actuation [place], Suspension 1 spray, Each Nare, DAILY gabapentin [...] upper lobe. Started on eliquis 08/2022 TTE ([facility]): normal bi-v s/f. No [...] 3:00 PM EDT Office [place] [address] [place] [address] documented as of this encounter Visit Diagnoses Diagnosis SVT (supraventricular tachycardia) Other specified cardiac dysrhythmias Pulmonary embolism without acute cor pulmonale, unspecified chronicity, unspecified pulmonary embolism type Paroxysmal atrial fibrillation Atrial fibrillation Heart failure with preserved ejection fraction, unspecified HF chronicity documented in this encounter Care Teams Sports Photographer Relationship Specialty Start Date End Date Polo Pearce PA [address] [place] [address] PCP - General Internal Medicine 06/09/21 documented as of this encounter
--- OUTSIDE RECORDS SUMMARY | 2024-04-10 17:09 | XMS_ITS | Encounter Summary ---
[place] [address] Care Team Providers Care New Car Get Ready Mechanic Name Role Phone Polo Pearce Primary Care Provider [phone] Reason for Visit * Auth/Cert (Routine) Specialty [...] ELECTROPHYSIOLOGY PROCEDURE Jed Tovar MD [facility] [address] [facility] Referral ID Status Reason Start Date Expiration Date Visits Re quested Visits Authorized [id number] 1 1 Encounter Details Date Type Department Care Team (Late st Contact Info) Description 04/01/2023 7:39 AM EST Anesthesia Event [place] [address] Merlin Lozoya MD [facility] [place] [address] Anesthesia Record Procedure Summary Procedure [...] by Patricia Singer RN 04/01/23 153 by Gainna Bland RN ETT Mask Ventilation: Adjunct (2); ETT Type: Cuffed; ETT Size: 7.5 mm; Mac Blade: 3; Notes: Asleep, Pre-O2, Stylette; Attempts: 1; Laryngoscopy Grade: 1; ETT Placement Verified By: Auscultation, Visual, Capnometry; Secured at Teeth: 22 cm; Inserted by: tanja; Removal Date: 04/01/23; Removal Time: 1119 04/01/23 0750 by Jaspreet Perry, REHAB RN 04/01/23 1119 by Merlin Lozoya MD PIV 04/01/23; 0754; 18 gauge; dorsal arch vein (top of hand), right; Anatomical Landmarks; tanja; no longer indicated; 04/01/23; 1551 04/01/23 0754 by Jaspreet Perry, REHAB RN 04/01/23 1551 by Gianna Bland RN LDA Cath/EP Sheath 04/01/23; 0823; 6.5 Lao (Fr); Left, Anterior; Femoral; Venous 04/01/23 0823 by Mary Herman RN 04/01/23 1056 by Mary Herman RN LDA Cath/EP Sheath 04/01/23; 0825; 6.5 Lao (Fr); Left, Anterior; Femoral; Venous 04/01/23 0825 by Mary Herman RN 04/01/23 1057 by Mary Herman RN LDA Cath/EP Sheath 04/01/23; 0825; 6.5 Lao (Fr); Left, Anterior; Femoral; Venous 04/01/23 0825 by Mary Herman RN 04/01/23 1057 by Mary Herman RN LDA Cath/EP Sheath 04/01/23; 0827; 6.5 Lao (Fr); Right, Anterior; Femoral; Venous 04/01/23 0827 by Mary Herman RN 04/01/23 1057 by Mary Herman RN LDA Cath/EP Sheath 04/01/23; 0833; 5.5 Lao (Fr); Right, Anterior; Femoral; Venous 04/01/23 0833 [...] / Location: EP B-LAB ROOM 4 / [facility] EP LABS Anesthesia Start: 738 Anesthesia Stop: 113 Procedure: ELECTROPHYSIOLOGY PROCEDURE Diagnosis: SVT (supraventricular tachycardia) (SVT (supraventricular tachycardia) [I47.10]) Providers: Jed Tovar MD Responsible Provider: Merlin Lozoya MD Anesthesia Type: general ASA Status: 3 All Anesthesia Providers: Anesthesiologist: Merlin Lozoya MD REHAB RN: Jaspreet Perry CRNA Vitals Value Taken Time BP 104/58 04/01/23 1345 Temp 36.4 ??C (97.5 ??F) 04/01/23 1315 Pulse 66 04/01/23 1346 Resp 14 04/01/23 1346 SpO2 96 % 04/01/23 1346 Pain Level Vitals shown include unfiled device data. Patient Location: PACU/[facility] Level of Consciousness: Awake and [...] risks discussed with patient. Plan discussed with REHAB RN. Anesthesia Screening documented in this encounter Plan of Treatment Upcoming Encounters Date Type Department Care Team (Late st Contact Info) Description 07/19/2024 3:00 PM EDT Office [place] [address] Mary Reyes [place] [address] documented as of this encounter Visit Diagnoses [...] mg documented in this encounter Care Teams New Car Get Ready Mechanic Relationship Specialty Start Date End Date Polo Pearce PA [address] [place] [address] PCP - General Internal Medicine 06/09/21 documented as of this encounter
--- OUTSIDE RECORDS SUMMARY | 2024-04-10 17:09 | XMS_ITS | Encounter Summary ---
Author Organization [facility] [place] [address] Care Team Providers Care Continuous Process Machine Operator Name Role Phone Polo Pearce Primary Care Provider [phone] Encounter Details Date Type Department Care Team (Late st Contact Info) Description 03/10/2023 Telephone Cardiology at [address] [address] Nilda Mayes, RN Social History Tobacco Use Types Packs/Day Years Used Date Smoking Tobacco: Never Smokeless Tobacco: Never Alcohol Use Standard Drinks/Week Comments Never 0 (1 standard drink = 0.6 oz pur e alcohol) [facility] Utilities Answer Date Recorded In the past 12 months has e [employer], gas, oil, or water [employer] threatened to shut off services in [...] in a halfway (including now)? No 02/10/2023 Sex and Gender [...] 3:00 PM EDT Office Visit [place] [address] Mary Reyes [employer] [place] [address] documented as of this encounter Visit Diagnoses Not on filedocumented in this encounter Care Teams Continuous Process Machine Operator Relationship Specialty Start Date End Date Polo Pearce PA [address] [place] [address] PCP - General Internal Medicine 06/09/21 documented as of this encounter
--- OUTSIDE RECORDS SUMMARY | 2024-04-10 17:09 | XMS_ITS | Encounter Summary ---
Author Organization [facility] [place] [address] Care Team Providers Care Alumina Plant Supervisor Name Role Phone Polo Pearce Primary Care Provider [phone] Reason for Visit * Reason Onset Date Comments Post Procedure Call 04/08/2023 Encounter Details Date Type Department Care Team (Late st Contact Info) Description 04/08/2023 Notes Only Cardiology at [address] [phone] Mary Motta, RN Post Procedure Call Social History Tobacco Use Types Packs/Day Years Used Date Smoking Tobacco: Never Smokeless Tobacco: Never Alcohol Use Standard Drinks/Week Comments Never 0 (1 standard drink = 0.6 oz pur e alcohol) [facility] Utilities Answer Date Recorded In the past 12 months has [employer], gas, oil, or water [employer] threatened to shut off services in your [...] with Dr. Tovar in 1-3 months at [facility] Catheter Insertion Area Care - You [...] of any new medications initiated at the [facility]. The patient should be aware [...] his/her physician or the Cardiac Electrophysiology Service ([phone]). documented in this encounter Plan of Treatment Upcoming Encounters Date Type Department Care Team (Late st Contact Info) Description 07/19/2024 3:00 PM EDT Office [place] [address] [place] [address] documented as of this encounter Visit Diagnoses Not on filedocumented in this encounter Care Teams Alumina Plant Supervisor Relationship Specialty Start Date End Date Polo Pearce PA [address] [place] [address] PCP - General Internal Medicine 06/09/21 documented as of this encounter
--- OUTSIDE RECORDS SUMMARY | 2024-04-10 17:09 | XMS_ITS | Encounter Summary ---
Author Organization [facility] [place] [address] Care Team Providers Care Automotive Exhaust Emissions Technician Name Role Phone Polo Pearce Primary Care Provider [phone] Reason for Visit * Reason Onset Date Comments Pre Procedure Call 03/16/2023 Encounter Details Date Type Department Care Team (Late st Contact Info) Description 03/16/2023 Telephone Cardiology at [address] [address] Mary Motta RN Pre Procedure Call Social History Tobacco Use Types Packs/Day Years Used Date Smoking Tobacco: Never Smokeless Tobacco: Never Alcohol Use Standard Drinks/Week Comments Never 0 (1 standard drink = 0.6 oz pur e alcohol) [facility] Utilities Answer Date Recorded In the past 12 months has [employer], gas, oil, or water [employer] threatened to shut off services in [...] ESTSummary: Pre Procedure Call: SVT Ablation EP PRODUCTION SUPPORT ANALYST COORDINATION CHECKLIST Patient Name: Indira Roque Patient Performing Consulting Sales Executive: Jed Tovar Referring Provider: Jaspreet Kinsey Date of Procedure: 04/01/23 Arrival Time/ Case Time: 6:00 am / 7:30 am Check In Location: [facility]k 4W Date Patient was Called: 04/01/23 Procedure: SVT Ablation Company: [facility] Records Type: RF Orders: Yes Lab Orders: Yes [...] overnight , understands that they will need meals on wheels driver on day of discharge Notified pt that Esqueda catheter may be placed on day of procedure depending on type & duration of case. documented in this encounter Plan of Treatment Upcoming Encounters Date Type Department Care Team (Late st Contact Info) Description 07/19/2024 3:00 PM EDT Office Visit [place] [address] [place] [address] documented as of this encounter Visit Diagnoses Not on filedocumented in this encounter Care Teams Automotive Exhaust Emissions Technician Relationship Specialty Start Date End Date Polo Pearce PA [address] [address] PCP - General Internal Medicine 06/09/21 documented as of this encounter
--- OUTSIDE RECORDS SUMMARY | 2024-04-10 17:09 | XMS_ITS | Encounter Summary ---
[place] [address] Care Team Providers Care Hand Printed Circuit Board Assembler Name Role Phone Polo Pearce Primary Care Provider [phone] Reason for Visit * Auth/Cert (Routine) Specialty Diagnoses / Procedures Referred By Contac t Referred To Contact Diagnoses NSTEMI (non-ST elevated myocardial infarction) NSTEMI Procedures ER Lloyd Pantoja MD [facility] [address] [facility] Referral ID Status Reason Start Date Expiration Date Visits Re quested Visits Authorized [id number] 1 1 Encounter Details Date Type Department Care Team (Latest Contact Info) Description 04/17/2023 9:15 AM EST - 04/17/2023 11:59 PM EST Hospital Encounter [place] [address] Discharge Disposition: Home Social History Tobacco Use Types Packs/Day Years Used Date Smoking Tobacco: Never Smokeless Tobacco: Never Alcohol Use Standard Drinks/Week Comments Never 0 (1 standard drink = 0.6 oz pur e alcohol) [facility] Utilities Answer Date Recorded In the past 12 months has [employer], gas, oil, or water company threatened [...] in a retirement (including now)? No 02/10/2023 DH IPV Inpatient [...] 3:00 PM EDT [place] [address] Mary Reyes, [place] [address] documented as of this encounter Procedures Procedure [...] mLs documented in this encounter Care Teams Hand Printed Circuit Board Assembler Relationship Specialty Start Date End Date Polo Pearce PA [address] [place] [address] PCP - General Internal Medicine 06/09/21 documented as of this encounter
--- OUTSIDE RECORDS SUMMARY | 2024-04-10 17:09 | XMS_ITS | Encounter Summary ---
Author Organization [facility] [place] [address] Care Team Providers Care Carpenter Assembler Name Role Phone Polo Pearce Primary Care Provider [phone] Reason for Visit * Reason Onset Date Comments Follow-up 04/08/2023 Encounter Details Date Type Department Care Team (Late st Contact Info) Description 04/08/2023 Telephone Cardiology at [address] [address] Mary Motta, RN Follow-up Social History Tobacco Use Types Packs/Day Years Used Date Smoking Tobacco: Never Smokeless Tobacco: Never Alcohol Use Standard Drinks/Week Comments Never 0 (1 standard drink = 0.6 oz pur e alcohol) [facility] Utilities Answer Date Recorded In the past 12 months has [employer], gas, oil, or water [employer] threatened to shut off services in your [...] 3:00 PM EDT Office [place] [address] [place] [address] documented as of this encounter Visit Diagnoses Not on filedocumented in this encounter Care Teams Carpenter Assembler Relationship Specialty Start Date End Date Polo Pearce PA [address] [facility] [address] [place] [address] PCP - General Internal Medicine 06/09/21 documented as of this encounter
--- OUTSIDE RECORDS SUMMARY | 2024-04-10 17:09 | XMS_ITS | Encounter Summary ---
[place] [address] Care Team Providers Care Molding Manager Name Role Phone Polo Pearce Primary Care Provider [phone] Reason for Referral * Consultation (Routine) - Closed Specialty Diagnoses / Procedures Referred By Contac t Referred To Contact Cardiology Diagnoses Non-ST elevation myocardial infarction (NSTEMI) Itz Bhardwaj MD [facility] [place] [address] [address] [place] [address] Referral ID Status Reason Start Date Expiration Date V isits Requested Visits Authorized [id number] Closed Consult, Test & Treat Non PCP 02/18/2023 08/17/2023 36 36 Encounter Details Date Type Department Care Team (Late st Contact Info) Description 02/18/2023 Orders [place] [address] Jazmin Levine RN Non-ST elevation myocardial infarction [...] 3:00 PM EDT Office [place] [address] [place] [address] Scheduled Referrals Name Type Priority Associated Diagnoses Orde r Schedule Referral to Cardiac Rehab Outpatient Referral Routine Non-ST elevation myocardial infarction (NSTEMI) Ordered: 02/18/2023 documented as of this encounter Visit Diagnoses Diagnosis Non-ST elevation myocardial infarction (NSTEMI) Acute myocardial infarction, subendocardial infarction, episode of care unspecified documented in this encounter Care Teams Molding Manager Relationship Specialty Start Date End Date Polo Pearce PA [address] [place] [address] PCP - General Internal Medicine 06/09/21 documented as of this encounter
--- OUTSIDE RECORDS SUMMARY | 2024-04-10 17:09 | XMS_ITS | Encounter Summary ---
Author Organization [facility] Address [facility] [place] [address] Care Team Providers Care Gun Synchronizer Name Role Phone Polo Pearce Primary Care Provider [phone] Encounter Details Date Type Department Care Team [...] 3:00 PM EDT Office [place] [address] [place] [address] documented as of this encounter Visit Diagnoses Not on filedocumented in this encounter Care Teams Gun Synchronizer Relationship Specialty Start Date End Date Polo Pearce PA [address] [place] [address] PCP - General Internal Medicine 06/09/21 documented as of this encounter
--- OUTSIDE RECORDS SUMMARY | 2024-04-10 17:09 | XMS_ITS | Encounter Summary ---
[place] [address] Care Team Providers Care Coverstitch Machine Operator Name Role Phone Polo Pearce Primary Care Provider [phone] Reason for Visit * Auth/Cert (Routine) Specialty [...] THER/DX INTERVENT ELECTROPHYSIOLOGY PROCEDURE Jed Tovar MD [facility] [address] [facility] Referral ID Status Reason Start Date Expiration Date Visits Re quested Visits Authorized [id number] 1 1 Encounter Details Date Type Department Care Team (Late st Contact Info) Description 04/01/2023 7:30 AM EST - 04/01/2023 12:00 PM EST Surgery [place] [phone] Jed Tovar MD [facility] [place] [address] ELECTROPHYSIOLOGY PROCEDURE Social History Tobacco Use Types [...] Indira Roque Patient Age: 53 y.o. Language: Montserratian Race: White Ethnicity: Not nor Admit date: [...] Cardiac Electrophysiology - Weekends and holidays call [phone]; ask for performance engineer on site wastewater systems technician. Discharge Diagnoses (Hospital Problems) and Secondary [...] 06/13/2021 in the context of hospitalization at [facility] for NSTEMI. A rapidly conducted [...] days. Refills: 0 fluticasone propionate 50 mcg/actuation [place], Suspension Commonly known as: Flonase 1 spray [...] 3:00 PM Jaspreet Kinsey MD Cardiology at [place] Arrive at: [facility] [address] [phone] Discharge References/Attachments None documented in this encounter [...] as needed. fluticasone propionate (FLONASE) 50 mcg/actuation [place], Suspension 1 spray by Each Nare route [...] PRE-PROCEDURE H&P Referring Provider: Jaspreet Kinsey MD [facility] [place] [address] Attending Provider: Jed Tovar MD Planned Procedure: EP study and SVT ablation Background and rationale for the procedure: Indira Roque is a 53 y.o. woman with paroxysmal atrial fibrillation, heart failure with preserved EF, and chronic angina with non-obstructive ASCVD but significant calcifications per coronary CTA. She has documented sustained narrow complex tachycardia on 06/13/2021 in the context of hospitalization at [facility] for NSTEMI. A rapidly conducted [...] as needed. fluticasone propionate (FLONASE) 50 mcg/actuation [place], Suspension 1 spray by Each Nare route [...] in agreement. Dr. Jed Tovar, electrophysiology attending ([id number]) documented in this encounter Procedure Notes * [...] it makes her jittery Break coverage by Liuza Peña RN [phone]. PACU D/C criteria met at 1300 1345 Hand off to ERWIN Gomez SDP documented in this encounter Miscellaneous Notes * Brief Op Note - Jed Tovar MD - 04/01/2023 11:07 AM EST Brief Operative Note Patient Name: Indira Roque : [id number] MR#: [id number] Case Date: 04/01/2023 Surgeon: Surgeon(s) and Role: [...] 3:00 PM EDT Office [place] [address] [place] [address] documented as of this encounter Procedures Procedure [...] (Bezet) 519 ms MUSE SYSTEM Calculated P [place] 44 degrees MUSE SYSTEM Calculated R [place] 41 degrees MUSE SYSTEM Calculated T [place] 36 degrees MUSE SYSTEM INTERPRETATION Normal sinus [...] not included. ELECTROPHYSIOLOGY STUDY AND SVT ABLATION Houseperson: Jed Tovar MD Fellow: Jaspreet Grimm MD Referring: Jaspreet Kinsey MD Patient History: Indira Roque is a 53 y.o. woman with one episode of paroxysmal atrial fibrillation, heart failure with preserved EF, and chronic angina with non-obstructive ASCVD but significant calcifications per coronary CTA. She has documented sustained narrow complex tachycardia on 06/13/2021 in the context of hospitalization at [facility] for NSTEMI. A rapidly conducted [...] Intervals (ms) Interval Name Interval length (milliseconds) TX 260 QRS 97 QT 531 AH 159 HV 47 Refractory Periods Atrial ERP 700/300 AV Makayla Conduction AV Wenckebach 360 ms Retrograde Wenckebach 470 ms Medication Summary (drug, amount, route) Isoproterenol at 2-4 mcg/kg/min Radiology Summary Total Fluoro time (min) 1.4 DAP (cGycm2) 53 Findings: 1. The baseline EKG revealed sinus rhythm with prolonged TX and long AH, but otherwise normal intervals [...] with Dr. Tovar in 1-3 ??months at [facility] 5. 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 Procedures performed: SVT ablation (cpt 45391); induce post IV drug (cpt 88520-30-34) I have read, edited and approve of [...] (Bezet) 522 ms MUSE SYSTEM Calculated P [place] 50 degrees MUSE SYSTEM Calculated R [place] 69 degrees MUSE SYSTEM Calculated T [place] 16 degrees MUSE SYSTEM INTERPRETATION Sinus bradycardia Lateral infarct , age undetermined Prolonged QT Abnormal ECG When compared with ECG of 22-MAR-2023 16:45, (unconfirmed) T wave inversion no longer evident in Anterior leads QT has lengthened I personally reviewed the tracing and edited the fellows interpretation Confirmed by fellow MD Nas, Max ([id number]) on 04/01/2023 3:35:42 PM Confirmed by MD NALIA, KAUSHIK ([id number]) on 04/02/2023 8:28:26 AM MUSE SYSTEM 04/01/2023 7:31 AM EST 04/02/2023 8:28 AM EST Jed Tovar MD ECG ORDERABLES MUSE SYSTEM * Differential, Automated (04/01/2023 7:20 AM EST) Neutrophil % 53.2 % [facility] Neutrophil Absolute 3.51 1.70 - 6.10 x10(3)/[facility] LABORATORY Lymph % 32.4 % [facility] Lymphocytes Abs 2.1 0.9 - 3.2 x10(3)/[facility] LABORATORY Monocyte % 8.7 % [facility] IT[facility] Monocyte Abs 0.6 0.3 - 0.9 x10(3)/[facility] LABORATORY Eos % 4.6 % [facility] Eosinophils Abs 0.3 0.0 - 0.4 x10(3)/[facility] LABORATORY Basophil % 0.8 % [facility] ITAL LABORATORY Baso Absolute 0.0 0.0 - 0.1 x10(3)/[facility] LABORATORY Immature Gran % 0.30 % [facility] Comment: Immature granulocytes(IG's)percentage and absolute count will include metamyelocytes, myelocytes, and promyelocytes. Blood smears from CBCs yielding IG's will be scanned manually for concordance. If this scan disagrees with the automated IG or if promyelocytes are noted, a manual differential will be performed. Immature Gran Absolute 0.02 0.00 - 0.04 x10(3)/[facility] LABORATORY Blood 04/01/2023 7:20 AM EST 04/01/2023 7:33 AM EST Narrative Resulting Agency Comment Spec In Lab Jed Tovar MD HEMATOLOGY ORDERABLE S Performing Organization Address City/State/[facility] Co de Phone Number [facility] [place] [address] * (ABNORMAL) Hemogram (04/01/2023 7:20 AM EST) White Blood Cell 6.6 4.0 - 9.5 x10(3)/mc L [facility] Red Blood Cell 4.56 4.00 - 5.21 x10(6)/mc L [facility] Hemoglobin 14.1 11.7 - 15.5 g/dL [facility] Hematocrit 43.1 35.7 - 45.8 % [facility] Mean Cell Volume 94.5(H) 82.6 - 94.4 fL [facility] Mean Cell Hemoglobin 30.9 27.1 - 32.0 pg [facility] Mean Cell Hemoglobin Concentration 32.7 31.7 - 35.0 g/dL [facility] Platelet 229 145 - 357 x10(3)/mc L [facility] RDW Standard Deviation 44.7 37.0 - 46.0 fL [facility] RDW coefficient of variation 12.7 11.5 - 14.1 % [facility] Mean Platelet Volume 11.7 7.6 - 12.9 fL [facility] NRBC% auto 0.0 % [facility] ITAL LAB[facility] NRBC Absolute 0.000 0.000 - 0.000 x10(3)/mc L [facility] Blood 04/01/2023 7:20 AM EST 04/01/2023 7:33 AM EST Narrative Resulting Agency Comment Spec In Lab Jed Tovar MD HEMATOLOGY ORDERABLE S [facility] [place] [address] * (ABNORMAL) BMP w/fasting Glucose (04/01/2023 7:20 AM EST) Glucose Fasting 99 65 - 99 mg/dL [facility] [...] of Diabetes Mellitus, Position Statement from the [place] [employer]. ??Diabetes Care, Volume 33, Supplement 1, Mar 2009 Blood Urea Nitrogen 22(H) 8 - 18 mg/dL [facility] Creatinine 1.10 0.70 - 1.20 mg/dL [facility] Sodium 139 135 - 145 mmol/L [facility] Potassium 4.2 3.5 - 5.0 mmol/L [facility] Comment: Please note: ??Patients with WBC >100,000 may have falsely elevated Potassium levels. ??For accurate Potassium quantification in these patients send serum separator tube (gold top) for subsequent determinations. ??Contact the Clinical Chemistry Laboratory if there are any questions. Chloride 108(H) 98 - 107 mmol/L [facility] Carbon Dioxide 22 22 - 31 mmol/L [facility] Anion Gap 9 5 - 15 mmol/L [facility] Calcium 9.6 8.5 - 10.5 mg/dL [facility] Est Glomerular Filtration Rate 60 >=60 mL/min/1. 73 m?? [facility] [...] In Lab Jed Tovar MD CHEMISTRY ORDERABLES [facility] [place] [address] documented in this encounter Visit Diagnoses Diagnosis [...] Routine documented in this encounter Care Teams Coverstitch Machine Operator Relationship Specialty Start Date End Date Polo Pearce PA [address] [place] [address] PCP - General Internal Medicine 06/09/21 documented as of this encounter
--- OUTSIDE RECORDS SUMMARY | 2024-04-10 17:09 | XMS_ITS | Encounter Summary ---
[place] [address] Care Team Providers Care Timber Treating Tank Operator Name Role Phone Polo Pearce Primary Care Provider [phone] Reason for Visit * Auth/Cert (Routine) Specialty [...] THER/DX INTERVENT ELECTROPHYSIOLOGY PROCEDURE Jed Tovar MD [facility] [place] [address] [facility] Referral ID Status Reason Start Date Expiration Date Visits Re quested Visits Authorized [id number] 1 1 Encounter Details Date Type Department Care Team (Latest Contact Info) Description 04/01/2023 6:20 AM EST - 04/01/2023 4:00 PM EST Hospital Encounter [place] [address] Jed Tovar MD [facility] [place] [address] SVT (supraventricular tachycardia); PAF (paroxysmal atrial fibrillation) Discharge Disposition: Home Social History Tobacco Use Types Packs/Day Years Used Date Smoking Tobacco: Never Smokeless Tobacco: Never Alcohol Use Standard Drinks/Week Comments Never 0 (1 standard drink = 0.6 oz pur e alcohol) [facility] Utilities Answer Date Recorded In the past 12 months has th e [employer], gas, oil, or water [employer] threatened to shut off services in your [...] Indira Roque Patient Age: 53 y.o. Language: Tanzanian Race: [...] Cardiac Electrophysiology - Weekends and holidays call [phone]; ask for client support consultant chaperon. Discharge Diagnoses (Hospital Problems) and Secondary Diagnoses [...] 06/13/2021 in the context of hospitalization at [facility] for NSTEMI. A rapidly conducted narrow [...] days. Refills: 0 fluticasone propionate 50 mcg/actuation [place], Suspension Commonly known as: Flonase 1 spray [...] 3:00 PM Jaspreet Kinsey MD Cardiology at [place] Arrive at: [facility] [address] [phone] Discharge References/Attachments None documented in this encounter Discharge Instructions * Patient Instructions* Japsreet Grimm MD - 04/01/2023 7:38 AM EST [...] as needed. fluticasone propionate (FLONASE) 50 mcg/actuation [place], Suspension 1 spray by Each Nare route [...] PRE-PROCEDURE H&P Referring Provider: Jaspreet Kinsey MD [facility] [place] [address] Attending Provider: Jed Tovar MD Planned Procedure: EP study and SVT ablation Background and rationale for the procedure: Indira Roque is a 53 y.o. woman with paroxysmal atrial fibrillation, heart failure with preserved EF, and chronic angina with non-obstructive ASCVD but significant calcifications per coronary CTA. She has documented sustained narrow complex tachycardia on 06/13/2021 in the context of hospitalization at [facility] for NSTEMI. A rapidly conducted narrow [...] as needed. fluticasone propionate (FLONASE) 50 mcg/actuation [place], Suspension 1 spray by Each Nare route [...] in agreement. Dr. Jed Tovar, electrophysiology attending ([id number]) documented in this encounter Procedure Notes * [...] jittery Break coverage by Luiza Peña RN [phone]. PACU D/C criteria met at 1300 1345 Hand off to ERWIN GomezP documented in this encounter Miscellaneous Notes * Brief Op Note - Jed Tovar MD - 04/01/2023 11:07 AM EST Brief Operative Note Patient Name: Indira Roque : [id number] MR#: [id number] Case Date: 04/01/2023 Surgeon: Surgeon(s) and Role: [...] 3:00 PM EDT Office [place] [address] [place] [address] documented as of this encounter Procedures Procedure [...] (Bezet) 519 ms MUSE SYSTEM Calculated [place] 44 degrees MUSE SYSTEM Calculated R [place] 41 degrees MUSE SYSTEM Calculated T [place] 36 degrees MUSE SYSTEM INTERPRETATION Normal sinus [...] included. ELECTROPHYSIOLOGY STUDY AND SVT ABLATION Manager Mission: Jed Tovar MD Fellow: Jaspreet Grimm MD Referring: Jaspreet Kinsey MD Patient History: Indira Roque is a 53 y.o. woman with one episode of paroxysmal atrial fibrillation, heart failure with preserved EF, and chronic angina with non-obstructive ASCVD but significant calcifications per coronary CTA. She has documented sustained narrow complex tachycardia on 06/13/2021 in the context of hospitalization at [facility] for NSTEMI. A rapidly conducted narrow [...] with Dr. Tovar in 1-3 ??months at [facility] 5. 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 Procedures performed: SVT ablation (cpt 33324); induce post IV drug (cpt 28582-68-50) I have read, edited and approve of this report: Jed Tovar MD S Cardiac Electrophysiology 04/03/2023 11:10 AM Jed Tovar MD EP PROCEDURE ORDERAB LES * EKG 12 Lead (04/01/2023 7:31 AM EST) Pathologist [facility] Ventricular rate 59 BPM MUSE SYSTEM Atrial Rate 59 BPM MUSE SYSTEM P-R Interval 190 ms MUSE SYSTEM QRS Duration 84 ms MUSE SYSTEM Q-T Interval 528 ms MUSE SYSTEM QTC Calculated (Bezet) 522 ms MUSE SYSTEM Calculated [place] 50 degrees MUSE SYSTEM Calculated R [place] 69 degrees MUSE SYSTEM Calculated T [place] 16 degrees MUSE SYSTEM INTERPRETATION Sinus bradycardia Lateral infarct , age undetermined Prolonged QT Abnormal ECG When compared with ECG of 22-MAR-2023 16:45, (unconfirmed) T wave inversion no longer evident in Anterior leads QT has lengthened I personally reviewed the tracing and edited the fellows interpretation Confirmed by fellow MD Nas, Max ([id number]) on 04/01/2023 3:35:42 PM Confirmed by MD NAILA, KAUSHIK ([id number]) on 04/02/2023 8:28:26 AM MUSE SYSTEM 04/01/2023 7:31 AM EST 04/02/2023 8:28 AM EST Jed Tovar MD ECG ORDERABLES MUSE SYSTEM * Differential, Automated (04/01/2023 7:20 AM EST) Pathologist [facility] Neutrophil % 53.2 % [facility] Neutrophil Absolute 3.51 1.70 - 6.10 x10(3)/[facility] LABORATORY Lymph % 32.4 % [facility] Lymphocytes Abs 2.1 0.9 - 3.2 x10(3)/[facility] LABORATORY Monocyte % 8.7 % [facility] HOS[facility] ITAL LAB[facility]ORY Monocyte Abs 0.6 0.3 - 0.9 x10(3)/[facility] LABORATORY Eos % 4.6 % [facility] Eosinophils Abs 0.3 0.0 - 0.4 x10(3)/[facility] LABORATORY Basophil % 0.8 % [facility] ITAL LABORATORY Baso Absolute 0.0 0.0 - 0.1 x10(3)/[facility] LABORATORY Immature Gran % 0.30 % [facility] Comment: Immature granulocytes(IG's)percentage and absolute count will include metamyelocytes, myelocytes, and promyelocytes. Blood smears from CBCs yielding IG's will be scanned manually for concordance. If this scan disagrees with the automated IG or if promyelocytes are noted, a manual differential will be performed. Immature Gran Absolute 0.02 0.00 - 0.04 x10(3)/[facility] LABORATORY Blood 04/01/2023 7:20 AM EST 04/01/2023 7:33 AM EST Narrative Resulting Agency Comment Spec In Lab Jed Tovar MD HEMATOLOGY ORDERABLE S Performing Organization Address City/State/[facility] Co de Phone Number [facility] [place] [address] * (ABNORMAL) Hemogram (04/01/2023 7:20 AM EST) White Blood Cell 6.6 4.0 - 9.5 x10(3)/mc L [facility] Red Blood Cell 4.56 4.00 - 5.21 x10(6)/mc L [facility] Hemoglobin 14.1 11.7 - 15.5 g/dL [facility] Hematocrit 43.1 35.7 - 45.8 % [facility] Mean Cell Volume 94.5(H) 82.6 - 94.4 fL [facility] Mean Cell Hemoglobin 30.9 27.1 - 32.0 pg [facility] Mean Cell Hemoglobin Concentration 32.7 31.7 - 35.0 g/dL [facility] Platelet 229 145 - 357 x10(3)/mc L [facility] RDW Standard Deviation 44.7 37.0 - 46.0 fL [facility] RDW coefficient of variation 12.7 11.5 - 14.1 % [facility] Mean Platelet Volume 11.7 7.6 - 12.9 fL [facility] NRBC% auto 0.0 % [facility] H[facility]AL [facility] NRBC Absolute 0.000 0.000 - 0.000 x10(3)/mc L [facility] Blood 04/01/2023 7:20 AM EST 04/01/2023 7:33 AM EST Narrative Resulting Agency Comment Spec In Lab Jed Tovar MD HEMATOLOGY ORDERABLE S [facility] [address] * (ABNORMAL) BMP w/fasting Glucose (04/01/2023 7:20 AM EST) Glucose Fasting 99 65 - 99 mg/dL [facility] Comment: ?Fasting* Glucose Interpretive Criteria [...] Urea Nitrogen 22(H) 8 - 18 mg/dL [facility] Creatinine 1.10 0.70 - 1.20 mg/dL [facility] Sodium 139 135 - 145 mmol/L [facility] Potassium 4.2 3.5 - 5.0 mmol/L [facility] Comment: Please note: ??Patients with WBC >100,000 may have falsely elevated Potassium levels. ??For accurate Potassium quantification in these patients send serum separator tube (gold top) for subsequent determinations. ??Contact the Clinical Chemistry Laboratory if there are any questions. Chloride 108(H) 98 - 107 mmol/L [facility] Carbon Dioxide 22 22 - 31 mmol/L [facility] Anion Gap 9 5 - 15 mmol/L [facility] Calcium 9.6 8.5 - 10.5 mg/dL [facility] Est Glomerular Filtration Rate 60 >=60 mL/min/1. 73 m?? [facility] Comment: This patient's estimated GFR [...] Tovar MD CHEMISTRY ORDERABLES Performing Organization Address City/State/[facility] Co de Phone Number [facility] [address] documented in this encounter Visit Diagnoses Diagnosis [...] Routine documented in this encounter Care Teams Timber Treating Tank Operator Relationship Specialty Start Date End Date Polo Pearce PA [address] [place] [address] PCP - General Internal Medicine 06/09/21 documented as of this encounter
--- OUTSIDE RECORDS SUMMARY | 2024-04-10 17:09 | XMS_ITS | Encounter Summary ---
Author Organization [place] [address] Care Team Providers Care Day Care Center Director Name Role Phone Polo Pearce Primary Care Provider [phone] Encounter Details Date Type Department Care Team (Late st Contact Info) Description 02/16/2023 Telephone Cardiology at [address] [address] Jaspreet Kinsey MD [facility] [place] [address] Social History Tobacco Use Types Packs/Day Years Used Date Smoking Tobacco: Never Smokeless Tobacco: Never Alcohol Use Standard Drinks/Week Comments Never 0 (1 standard drink = 0.6 oz pur e alcohol) [facility] Utilities Answer Date Recorded In the past 12 months has e [employer], gas, oil, or water [employer] threatened to shut off services in your [...] her problems. Please call her back @ [phone] documented in this encounter Plan of Treatment Upcoming Encounters Date Type Department Care Team (Late st Contact Info) Description 07/19/2024 3:00 PM EDT Office [place] [address] [place] [address] documented as of this encounter Visit Diagnoses Not on filedocumented in this encounter Care Teams Day Care Center Director Relationship Specialty Start Date End Date Polo Pearce PA [address] [place] [address] PCP - General Internal Medicine 06/09/21 documented as of this encounter
--- OUTSIDE RECORDS SUMMARY | 2024-04-10 17:09 | XMS_ITS | Encounter Summary ---
Author Organization [facility] [place] [address] Care Team Providers Care Pharmacy Services Director Name Role Phone Polo Pearce Primary Care Provider [phone] Encounter Details Date Type Department Care Team (Late st Contact Info) Description 04/16/2023 Telephone Cardiology at [address] [address] Vaishnavi Pratt MD [facility] [place] [address] Social History Tobacco Use Types Packs/Day Years Used Date Smoking Tobacco: Never Smokeless Tobacco: Never Alcohol Use Standard Drinks/Week Comments Never 0 (1 standard drink = 0.6 oz pur e alcohol) [facility] Utilities Answer Date Recorded In the past 12 months has [employer], gas, oil, or water [employer] threatened to shut off services in your [...] 3:00 PM EDT Office Visit [place] [address] [place] [address] documented as of this encounter Visit Diagnoses [...] documented as of this encounter Care Teams Pharmacy Services Director Relationship Specialty Start Date End Date Polo Pearce PA [address] [place] [address] PCP - General Internal Medicine 06/09/21 documented as of this encounter
--- OUTSIDE RECORDS SUMMARY | 2024-04-10 17:09 | XMS_ITS | Encounter Summary ---
Author Organization [facility] [place] [address] Care Team Providers Care Pt Skilled Name Role Phone Polo Pearce Primary Care Provider [phone] Encounter Details Date Type Department Care Team (Late st Contact Info) Description 04/16/2023 [place] [address] Social History Tobacco Use Types Packs/Day Years [...] in a snf (including now)? No 04/19/2023 IPV Inpatient Questions [...] 3:00 PM EDT Office Visit [place] [address] Mary Reyes [place] [address] documented as of this encounter Procedures Procedure Name Priority Date/Time Associated Diagnosis Comments ECG SCAN Routine 04/16/2023 6:11 PM EST documented in this encounter Results * Scan Doc: ECG (04/16/2023 6:11 PM EST) Historical Provider MD FLEMING MGR SCAN EX T ORDR/RSLT documented in this encounter Visit Diagnoses Not on filedocumented in this encounter Care Teams Pt Skilled Relationship Specialty Start Date End Date Polo Pearce PA [address] [place] [address] PCP - General Internal Medicine 06/09/21 documented as of this encounter
--- OUTSIDE RECORDS SUMMARY | 2024-04-10 17:09 | XMS_ITS | Encounter Summary ---
[place] [address] Care Team Providers Care Merchandising Coordinator Name Role Phone Polo Pearce Primary Care Provider [phone] Reason for Visit * Auth/Cert (Routine) Specialty Diagnoses / Procedures Referred By Contac t Referred To Contact Diagnoses NSTEMI (non-ST elevated myocardial infarction) NSTEMI Procedures ER Lloyd Pantoja MD [facility] [place] [address] [facility] Referral ID Status Reason Start Date Expiration Date Visits Re quested Visits Authorized [id number] 1 1 Encounter Details Date Type Department Care Team (Late st Contact Info) Description 04/18/2023 9:00 AM EST - 04/18/2023 10:04 AM EST Surgery [place] [address] Dustin Carrasco MD [facility] [place] [address] CARDIAC CATHETERIZATION Social History Tobacco Use Types Packs/Day Years Used Date Smoking Tobacco: Never Smokeless Tobacco: Never Alcohol Use Standard Drinks/Week Comments Never 0 (1 standard drink = 0.6 oz pur e alcohol) [facility] Utilities Answer Date Recorded In the past 12 months has th e electric, gas, oil, or water [employer] threatened to shut off services in your [...] Loida Madrigal Patient Age: 53 y.o. Language: Congolese Admit date: 04/16/2023 Discharge date and time: [...] lung disease secondary to obesity transferred from [facility] for further evaluation of exertional chest pressure and breathlessness. Abnormal OSH troponin 500 and repeat HS Trop at [facility] peak 27 with flat trend and elevated [...] discharge Inpatient Provider Contact Information: Cardiovascular Medicine [phone] Discharge Diagnoses (Hospital Problems) and Secondary Diagnoses [...] motion has increased. CTA PE protocol at [facility]- no PE but showed small pericardial effusion and some GG opacities. History of Presentation: Loida Madrigal is a 53 y.o. with hx of paroxysmal A-fib (diagnosed on 10/20/2022), pulmonary emboli on Eliquis, HFpEF (EF of 59%), supraventricular tachycardia (AVNRT since 06/2021) s/p EPS and SVTablation on 04/01/[address] Tovar on [facility], restrictive lung disease secondary to obesity [...] consistent with previous recordings. Troponin levels at [facility] showed a plateau at 23 > 27. [...] again 10/15, improving with sublingua Nitro. At [facility] Vitals: HR 48, BP 115/42, O2 [...] #Acute on chronic HFpEF Patient presented to [facility] on 04/16 with chest pain responsive to SL NTG. Troponin ~500x2. [facility] [...] days. Refills: 0 fluticasone propionate 50 mcg/actuation [place], Suspension Commonly known as: Flonase 1 spray [...] AM Jaspreet Kinsey MD Cardiology at [place] Arrive at: [facility] [address] [phone] 09/21/2023 3:00 PM Jaspreet Kinsey MD Cardiology at [place] Arrive at: [facility] [address] [phone] Discharge References/Attachments None Greater than 30 minutes was spent on this discharge including documentation, pejf-zk-[id number] time withthe patient, patient education, mill order scheduler, coordination with pharmacy and other patient care. [...] away. Stay on the phone. The emergency continuous vulcanizing machine operator will tell you what to [...] of 8AM-5PM please call the Cardiology Clinic [phone] to speak with a nurse. All other hours please call the Hospital Cupola Melting Supervisor [phone] and ask to speak to the egg setter on-call. Return to work: One week Follow up Appointments: Doctor Where Phone # Date Time PCP JOCY Franco [address] [place] [address] 04/28/2023 7:30 AM [address] Kinsey [facility] A 05/10/2023 9:40 AM * Attachments The following attachments cannot be sent through Care Everywhere. * Coronary Angiogram: Post-op (Congolese) documented in this encounter Medications at Time [...] by mouth nightly. empagliflozin (Jardiance) 10 mg TabletIndications:Line Cleaner neal heart failure with preserved ejection fraction Take 1 tablet by mouth daily. 90 tablet 1 06/11/2021 rOPINIRole (Requip) 1 mg Tablet Take 2 mg by mouth 2 times daily. 07/16/2020 loratadine (Claritin) 10 mg Tablet Take 10 mg by mouth daily as needed. fluticasone propionate (FLONASE) 50 mcg/actuation [place], Suspension 1 spray by Each Nare route [...] reviewed with pt, pt wheeled to d/c [facility]. I agree with the information in this [...] note were not included. CARDIOLOGY APP1 - [facility] DAILY PROGRESS NOTE Page [phone] to reach a provider 28/09 Admit Date: [...] disease secondary to obesity who presented to [facility] on 04/16 with chest pain responsive to SL NTG. Troponin ~500x2. Transferred to [facility]. [facility] [...] Score: 24 PT: OT: PCP JOCY Franco [phone] Discussed with MD Kurt Ray PA-C APP1 pager [phone] 04/22/2023 CV HOSPITALIST ADDENDUM Date of Service: [...] 04/21/2023 6:10 PM EST CARDIOLOGY APP1 - [facility] DAILY PROGRESS NOTE Page [phone] to reach a provider 28/09 Admit Date: [...] 12 CRP <=4.9 mg/L <3.[address] [facility] troponin ~500. Telemetry: I have personally [...] disease secondary to obesity who presented to [facility] on 04/16 with chest pain responsive to SL NTG. Troponin ~500x2. Transferred to [facility] for [facility]. [facility] [...] occur Diet: Daily Healthy Menu Choices/Cardiac diet ([facility]-Diet) 2 GM NA DVT Prophylaxis: DOAC Code status: Attempt Cardiopulmonary Resuscitation - Inpatient Disposition: Discharge Location: AM-PAC Basic Mobility Raw Score: 22 PT: OT: PCP JOCY Franco [phone] * Eufemia Copeland MD - 04/20/2023 4:34 PM EST CARDIOLOGY APP1 - [facility] DAILY PROGRESS NOTE Page [phone] to reach a provider 28/09 Admit Date: [...] 12 CRP <=4.9 mg/L <3.[address] [facility] troponin ~500. Telemetry: I have personally [...] disease secondary to obesity who presented to [facility] on 04/16 with chest pain responsive to SL NTG. Troponin ~500x2. Transferred to [facility]. [facility] [...] occur Diet: Daily Healthy Menu Choices/Cardiac diet ([facility]-Diet) 2 GM NA; 2000 mL FLUID DVT Prophylaxis: DOAC Code status: Attempt Cardiopulmonary Resuscitation - Inpatient Disposition: Discharge Location: AM-PAC Basic Mobility Raw Score: 24 PT: OT: PCP JOCY Franco [phone] * Carrol La PA - 04/19/2023 12:32 PM EST CARDIOLOGY APP1 - [facility] DAILY PROGRESS NOTE Page [phone] to reach a provider 28/09 Admit Date: [...] 12 CRP <=4.9 mg/L <3.[address] [facility] troponin ~500. EKG: Sinus bradycardia, 47 bpm, PAC, possible left atrial enlargement, possible lateral infarct, QTc 511. Telemetry: I have personally reviewed and interpreted the telemetry from the last 24 hours. Resultsshow sinus bradycardia with HR 50s, PVCs, heart rate climbs to 70s with activity.. Imaging: [facility] 04/18/23 Conclusions: * Nonobstructive coronary [...] motion has increased. CTA PE protocol at [facility]- no PE but showed small pericardial [...] acute aortopathy. 4. No acute pulmonary findings. [facility] 06/09/2021-RA 4, PA 38/15 (24) PCWP 11, CO/CI 3.14/1.6. [facility] 08/30/2019-normal coronary arteries. Assessment & [...] disease secondary to obesity who presented to [facility] on 04/16 with chest pain responsive to SL NTG. Troponin ~500x2. Transferred to [facility] [...] and no pericardial effusion. She underw ent [facility] on 04/18 which showed non-obstructive [...] continues. Diet: Daily Healthy Menu Choices/Cardiac diet ([facility]-Diet) 2 GM NA; 2000 mL FLUID DVT Prophylaxis: DOAC Code status: Attempt Cardiopulmonary Resuscitation - Inpatient Disposition: Discharge Location: AM-[facility] Basic Mobility Raw Score: 24 PT: OT: PCP JOCY Franco [phone] Discussed with MD Carrol Aly PA-C APP1 Pager: [phone] 04/19/2023 * Alex Lew RCP - 04/18/2023 [...] note were not included. CARDIOLOGY APP1 - [facility] DAILY PROGRESS NOTE Page [phone] to reach a provider 28/09 Admit Date: [...] breathlessness. Awaiting cardiac catheterization potentially today if Incinerator Operator availability allows.She remains on ACS therapies. [...] 12 CRP <=4.9 mg/L <3.[address] [facility] troponin ~500. EKG: Sinus bradycardia, 47 [...] motion has increased. CTA PE protocol at [facility]- no PE but showed small pericardial [...] acute aortopathy. 4. No acute pulmonary findings. [facility] 06/09/2021-RA 4, PA 38/15 (24) PCWP 11, CO/CI 3.14/1.6. [facility] 08/30/2019-normal coronary arteries. Assessment & [...] or NTG drip if ongoing chest pain -[facility] 04/18 depending on Incinerator Operator availability. #Hx of pAfib #Hx of [...] Score: 24 PT: OT: PCP JOCY Franco [phone] Discussed with MD Kurt Sheppard PA-C APP1 pager [phone] 04/18/2023 * Kurt Silveira PA - 04/17/2023 7:15 AM EST Images from the original note were not included. CARDIOLOGY APP1 - [facility] DAILY PROGRESS NOTE Page [phone] to reach a provider 28/09 Admit Date: [...] 12 CRP <=4.9 mg/L <3.[address] [facility] troponin ~500. EKG: Sinus bradycardia, 47 [...] motion has increased. CTA PE protocol at [facility]- no PE but showed small pericardial [...] or NTG drip if ongoing chest pain -[facility] 04/18 or 04/19 depending on Incinerator Operator availability. #Hx of pAfib #Hx of AVNRT sp EPS and Ablation - hold eliquis. Last taken on 04/16/23 am. - Continue IV heparin. # Hx of PE- continue with IV heparin Diet: No diet orders on file DVT Prophylaxis: DOAC Code status: Attempt Cardiopulmonary Resuscitation - Inpatient Disposition: Discharge Location: AM-PAC Basic Mobility Raw Score: 14 PT: OT: PCP JOCY Franco [phone] Discussed with MD Kurt Sheppard PA-C APP1 [...] 04/01/[address] Tovar on [facility], restrictive lung disease secondary to obesity [...] consistent with previous recordings. Troponin levels at [facility] showed a plateau at 23 > 27. [...] again 10/15, improving with sublingua Nitro. At 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 fluticasone propionate (FLONASE) 50 mcg/actuation [place], Suspension 1 spray by Each Nare route [...] 04/01/[address] Tovar on [facility], restrictive lung disease secondary to obesity [...] (see comments), grab bar - tub/shower (CP[facility]) DME Needed at Discharge: N/A Patient is insured through: Primary Insurance: [employer] [place] Payor: [employer] [place] [place] / Plan[place] / Product Type: *No Product type* / Secondary Insurance: N/A Prescription Coverage: Yes This plan was formulated with input from patient and team. All are in agreement with plan. * Consult Note - Maegan Mike APRN - 04/22/2023 10:38 AM EST Images from the original note were not included. [facility] [place] [address] INPATIENT CARDIOLOGY CONSULT PROGRESS NOTE Interval events: [...] with MD Maegan De Leon APRN Pager [phone] 04/22/2023 Associated attestation - Jaspreet Kinsey MD [...] Tatum MSW - 04/20/2023 2:22 PM EST SIX SIGMA BLACK BELT ENGINEER received a consult to support patient with financial concerns. SIX SIGMA BLACK BELT ENGINEER met with patient and introduced self. Patient stated due to hospitalization, she has been out of work and feeling stress around not being able to pay bills. I have a car payment and other bills and it's like I have to choose which one to pay and which one not to pay. SIX SIGMA BLACK BELT ENGINEER validated patient's stress around financial concerns. SIX SIGMA BLACK BELT ENGINEER asked patient if she has applied for [place] or any other state benefits. Patient stated that she has, but is over the household income criteria to qualify for benefits. Patient shared that she owns her home outright and mainly concerned about making her car payment and transportation home. MSWstated that care management will help arrange for a ride, if needed. SIX SIGMA BLACK BELT ENGINEER provided patient with community resources such as the [facility] Food Directory, the [facility] Community Action phone number, and the [facility] [place] on Aging contact info. SIX SIGMA BLACK BELT ENGINEER available to support patient should anything else [...] Admitted From: Transfer from another hospital Location: [facility] Reason for Hospitalization: chest pain and cough Covid Vaccination Status: 1st, 2nd & booster Last COVID test: Lab Results Component Value Date [id number] Not Detected 06/13/2021 Past medical History: Past [...] shut off services in your home?: Yes ([employer] is currently threatening to shut off electricity [...] (see comments), grab bar - tub/shower ([facility]) Home Address confirmed as: [address] [address] Social & Family Supports: All names listed [...] Specific Information: N/A Health/Prescription Coverage: Primary Insurance: [employer] [place] Pay[place] [employer] [place] / Plan: [place] / Product Type: *No Product type* / Secondary Insurance: N/A ; Prescription Coverage: Yes Preferred Pharmacy: [id number] - [place], [place] - [address] [address] Pharmacy - [place], [place] - [address] [facility] [address] Status: Patient is a : No Primary Care Provider confirmed: JOCY Franco [phone] Patient/Caregiver Goals of Treatment: home w / family when MR Potential Needs for Transition of Care: other (see comments) (SIX SIGMA BLACK BELT ENGINEER support; pt's spouse was denied twice for [...] Concerns to be Addressed: financial/insurance, discharge planning; SIX SIGMA BLACK BELT ENGINEER consult placed to discuss available resources Assessment: Patient is admitted to [facility] service for NSTEMI Plan: pending clinical course, but likely home w/o services when MR A member of the Care Management team will continue to monitor progress, follow for continuity of care and assist with transition of care planning. * Consult Note - Otis Rader MD - 04/19/2023 10:00 AM EST Images from the original note were not included. [facility] [place] [address] INPATIENT CARDIOLOGY CONSULT NOTE Reason for Consult: [...] ACS with DAPT and heparin prior to [facility] 04/18, which was negative for [...] Went to cathlab, came back ~1115am, s/p [facility] with no coronary artery disease [...] for further details. JOCY Marie 04/17/2023 Pager [phone] * Plan of Care - Sudhakar Smith [...] 3:00 PM EDT Office [place] [address] [place] [address] documented as of this encounter Procedures Procedure [...] questions please contact the health patient care associate that requested your imaging first. ? 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 Following IV administration of 26.5 mCi technetium 99m sestamibi, SPECT-CT of the heart was obtained. Following IV injection of 8.8 mCi 83-bytqdv-2-deoxyglucose (FDG) and a standard uptake of approximately [...] obtained. Following IV injection of 8.8 mCi 96-gnfjkz-7-deoxyglucose (FDG) and astandard uptake of approximately 60 [...] have questions please contactthe health patient care associate that requested your imaging first. Electronically signed by: Humberto Qureshi MD, [facility]([phone]), at 05/06/2023 11:09 AM Maegan Mike ROM [...] questions please contact the health patient care associate that requested your imaging first. ? Narrative [...] have questions please contactthe health patient care associate that requested your imaging first. Electronically signed by: Karon Nur MD, [facility] ([phone]), at 04/21/2023 5:33 PM Lloyd Maloney MD IMG MRI ORDERABLES * Hemogram (04/21/2023 3:40 AM EST) White Blood Cell 7.1 4.0 - 9.5 x10(3)/[facility] [address] LABORATORY Red Blood Cell 4.59 4.00 - 5.21 x10(6)/[facility] [address] LABORATORY Hemoglobin 14.4 11.7 - 15.5 g/dL [facility] Hematocrit 43.0 35.7 - 45.8 % [facility] Mean Cell Volume 93.7 82.6 - 94.4 fL [facility] Mean Cell Hemoglobin 31.4 27.1 - 32.0 pg [facility] Mean Cell Hemoglobin Concentration 33.5 31.7 - 35.0 g/dL [facility] Platelet 221 145 - 357 x10(3)/[facility] [address] LABORATORY RDW Standard Deviation 43.5 37.0 - 46.0 fL [facility] RDW coefficient of variation 12.6 11.5 - 14.1 % [facility] Mean Platelet Volume 11.1 7.6 - 12.9 fL [facility] NRBC% auto 0.0 % [facility] IT[facility] LABORATORY NRBC Absolute 0.000 0.000 - 0.000 x10(3)/mcL [facility] Blood 04/21/2023 3:40 AM EST 04/21/2023 3:58 AM EST Narrative Resulting Agency Comment Spec In Lab Ailyn Knight MD HEMATOLOGY ORDERABLE S [facility] [place] [address] * (ABNORMAL) BMP w/fasting Glucose (04/21/2023 3:40 AM EST) Glucose Fasting 107(H) 65 - 99 mg/dL [facility] Comment: ?Fasting* Glucose Interpretive Criteria Normal [...] of Diabetes Mellitus, Position Statement from the [place] Diabetes Association. ??Diabetes Care, Volume 33, Supplement 1, Mar 2009 Blood Urea Nitrogen 20(H) 8 - 18 mg/dL [facility] Creatinine 1.14 0.70 - 1.20 mg/dL [facility] Sodium 138 135 - 145 mmol/L [facility] Potassium 3.8 3.5 - 5.0 mmol/L [facility] Comment: Please note: ??Patients with WBC >100,000 may have falsely elevated Potassium levels. ??For accurate Potassium quantification in these patients send serum separator tube (gold top) for subsequent determinations. ??Contact the Clinical Chemistry Laboratory if there are any questions. Chloride 106 98 - 107 mmol/L [facility] Carbon Dioxide 22 22 - 31 mmol/L [facility] Anion Gap 10 5 - 15 mmol/L [facility] Calcium 9.2 8.5 - 10.5 mg/dL [facility] Est Glomerular Filtration Rate 57(L) >=60 mL/min/1. 73 m?? [facility] Comment: This patient's estimated GFR was [...] Knight MD CHEMISTRY ORDERABLES Performing Organization Address [facility] Co de Phone Number [facility] [place] [address] * Magnesium (04/21/2023 3:40 AM EST) Magnesium 0.90 0.69 - 1.07 mmol/L [facility] Blood 04/21/2023 3:40 AM EST 04/21/2023 3:58 AM EST Narrative Resulting Agency Comment Spec In Lab Ailyn Knight MD CHEMISTRY ORDERABLES Performing Organization Address [facility] Co de Phone Number [facility] [place] [address] * (ABNORMAL) Troponin (04/20/2023 4:44 PM EST) Troponin-T, High Sensitivity 26(H) <=14 ng/L [facility] Comment: This patient's troponin T concentration [...] troponin value can be found in the [facility] Laboratory Test Catalog Troponin - [facility] Laboratory Test Catalog Reference: Fourth [place] Definition of Myocardial Infarction. Journal of the [place] College of Cardiology 2018;72:5033-7835 Blood 04/20/2023 4:44 PM EST 04/20/2023 4:53 PM EST Narrative Resulting Agency Comment Spec In Lab Eufemia Copeland MD CHEMISTRY ORDERABL ES [facility] [place] [address] * Duplex for DVT, Arm, Unilat (04/20/2023 4:22 PM EST) VB Text Report Department: Vascular Surgery Lab Patient: [id number] (LOIDA MADRIGAL) CPT: 39385 Referring Physician: LLOYD MALONEY ?? Phone: Indications: [...] High Sensitivity 27(H) <=14 ng/L [facility] Comment: This patient's troponin T concentration [...] troponin value can be found in the [facility] Laboratory Test Catalog Troponin - [facility] Laboratory Test Catalog Reference: Fourth [place] Definition of Myocardial Infarction. Journal of the [place] College of Cardiology 2018;72:5616-7784 Blood 04/20/2023 1:47 PM EST 04/20/2023 2:18 PM EST Narrative Resulting Agency Comment Spec In Lab Eufemia Copeland MD CHEMISTRY ORDERABL ES Performing Organization Address City/[facility]/ZIP Co de Phone Number [facility] [place] [address] * (ABNORMAL) Troponin (04/20/2023 10:48 AM EST) Troponin-T, High Sensitivity 24(H) <=14 ng/L [facility] Comment: This patient's troponin T concentration [...] troponin value can be found in the [facility] Laboratory Test Catalog Troponin - [facility] Laboratory Test Catalog Reference: Fourth [place] Definition of Myocardial Infarction. Journal of the [place] College of Cardiology 2018;72:6640-4106 Blood 04/20/2023 10:4 8 AM EST 04/20/2023 11:03 AM EST Narrative Resulting Agency Comment Spec In Lab Eufemia Copeland MD CHEMISTRY ORDERABL ES Performing Organization Address City/[facility]/ZIP Co de Phone Number [facility] [place] [address] * EKG 12 Lead (04/20/2023 10:23 AM EST) Ventricular rate 60 BPM MUSE SYSTEM Atrial Rate 60 BPM MUSE SYSTEM P-R Interval 170 ms MUSE SYSTEM QRS Duration 86 ms MUSE SYSTEM Q-T Interval 470 ms MUSE SYSTEM QTC Calculated (Bezet) 470 ms MUSE SYSTEM Calculated P [place] 39 degrees MUSE SYSTEM Calculated R [place] 63 degrees MUSE SYSTEM Calculated T [place] -16 degrees MUSE SYSTEM INTERPRETATION Normal sinus [...] leads Confirmed by MD Eli, Manish Tol[place] ([id number]) on 04/22/2023 12:10:07 PM MUSE SYSTEM 04/20/2023 10:2 3 AM EST 04/22/2023 12:10 PM EST Lloyd Maloney MD ECG ORDERABLES MUSE SYSTEM * Hemogram (04/20/2023 3:11 AM EST) White Blood Cell 6.6 4.0 - 9.5 x10(3)/[facility] [address] LABORATORY Red Blood Cell 4.59 4.00 - 5.21 x10(6)/[facility] [address] LABORATORY Hemoglobin 14.2 11.7 - 15.5 g/dL [facility] Hematocrit 42.7 35.7 - 45.8 % [facility] Mean Cell Volume 93.0 82.6 - 94.4 fL [facility] Mean Cell Hemoglobin 30.9 27.1 - 32.0 pg [facility] Mean Cell Hemoglobin Concentration 33.3 31.7 - 35.0 g/dL [facility] Platelet 231 145 - 357 x10(3)/[facility] [address] LABORATORY RDW Standard Deviation 43.6 37.0 - 46.0 fL [facility] RDW coefficient of variation 12.6 11.5 - 14.1 % [facility] Mean Platelet Volume 11.0 7.6 - 12.9 fL [facility] NRBC% auto 0.0 % [facility] NRBC Absolute 0.000 0.000 - 0.000 x10(3)/mcL [facility] Blood 04/20/2023 3:11 AM EST 04/20/2023 3:24 AM EST Narrative Resulting Agency Comment Spec In Lab Ailyn Knight MD HEMATOLOGY ORDERABLE S [facility] [address] [place] [address] * (ABNORMAL) BMP w/fasting Glucose (04/20/2023 3:11 AM EST) Glucose Fasting 107(H) 65 - 99 mg/dL [facility] Comment: ?Fasting* Glucose Interpretive Criteria Normal [...] of Diabetes Mellitus, Position Statement from the [place] [employer]. ??Diabetes Care, Volume 33, Supplement 1, Mar 2009 Blood Urea Nitrogen 20(H) 8 - 18 mg/dL [facility] Creatinine 1.05 0.70 - 1.20 mg/dL [facility] Sodium 139 135 - 145 mmol/L [facility] Potassium 3.6 3.5 - 5.0 mmol/L [facility] Comment: Please note: ??Patients with WBC >100,000 may have falsely elevated Potassium levels. ??For accurate Potassium quantification in these patients send serum separator tube (gold top) for subsequent determinations. ??Contact the Clinical Chemistry Laboratory if there are any questions. Chloride 106 98 - 107 mmol/L [facility] Carbon Dioxide 21(L) 22 - 31 mmol/L [facility] Anion Gap 12 5 - 15 mmol/L [facility] Calcium 9.3 8.5 - 10.5 mg/dL [facility] Est Glomerular Filtration Rate 63 >=60 mL/min/1. 73 m?? [facility] Comment: This patient's estimated GFR was [...] Knight MD CHEMISTRY ORDERABLES Performing Organization Address [facility] Co de Phone Number [facility] [place] [address] * Magnesium (04/20/2023 3:11 AM EST) Magnesium 0.91 0.69 - 1.07 mmol/L [facility] Blood 04/20/2023 3:11 AM EST 04/20/2023 3:24 AM EST Narrative Resulting Agency Comment Spec In Lab Ailyn Knight MD CHEMISTRY ORDERABLES Performing Organization Address [facility] Co de Phone Number [facility] [place] [address] * Respiratory Panel PCR (04/19/2023 2:05 PM EST) Respiratory Panel Source [employer] [facility] Respiratory Panel PCR Negative Negative [facility] Comment: Respiratory Panels are performed on the Pronota, using multiplexed PCR nucleic acid detection. ??Negative results do not preclude respiratory infection and should not be used as the sole basis for diagnosis, treatment or other management decisions. Adenovirus Not Detected Not Detected [facility] Coronavirus HKU1 Not Detected Not Detected [facility] Coronavirus NL63 Not Detected Not Detected [facility] Coronavirus 229E Not Detected Not Detected [facility] Coronavirus OC43 Not Detected Not Detected [facility] SARS-CoV-2 Not Detected Not Detected [facility] Comment: Testing for SARS-CoV-2 (Severe acute respiratory syndrome coronavirus 2) to aid in the diagnosis of COVID-19 is performed using the BioFire Respiratory Panel 2.1 (Janalakshmi) as authorized by the FDA issued Emergency Use Authorization (EUA). This panel also tests for multiple other viral and bacterial pathogens. This assay is intended for In-vitro Diagnostic (IVD) use with nasopharyngeal swabs in viral transport media. The assay is performed based on the instructions for use and additional guidance provided by the FDA. Testing is performed in laboratories within the [facility], each of which is certified under [...] fact sheets at the following FDA website: https://www.fda.gov/medical-devices/dcpfvqlpgdk-pdbsray-1077-jbpsc-81-ydhkjuodv- use-a mrsrrjohpdiel-gzbwebv-gcdjffn/tljyf-vjmkcwjusjh-stfb Human Metapneumovirus Not Detected Not Detected [facility] Human Rhinovirus/Enterov irus Not Detected Not Detected [facility] Influenza A Not Detected Not Detected [facility] Influenza B Not Detected Not Detected [facility] Parainfluenza 1 Not Detected Not Detected [facility] Parainfluenza 2 Not Detected Not Detected [facility] Parainfluenza 3 Not Detected Not Detected [facility] Parainfluenza 4 Not Detected Not Detected [facility] Respiratory Syncytial Virus Not Detected Not Detected [facility] Chlamydophila pneumoniae Not Detected Not Detected [facility] Mycoplasma pneumoniae Not Detected Not Detected [facility] Nasopharyngeal Swab Other / Unknown 04/19 2:05 PM EST 04/19/2023 3:16 PM EST Narrative Resulting Agency Comment Spec In Lab Carrol SANDRA MICROBIOLOGY - GENER AL ORDERABLES Performing Organization Address City/[facility]/ZIP Co de Phone Number [facility] [place] [address] * (ABNORMAL) Urine culture (04/19/2023 10:25 AM EST) Urine Culture 10,000-49,000 cfu/ml mixed mucosal elmer Note: Culture shows multiple bacterial species suggesting mucosal contamination. (A) [facility] Clean Catch Urine 04/19/2023 10:25 AM EST 04/19/2023 12:49 PM EST Narrative Resulting Agency Comment Spec In Lab Carrol SANDRA MICROBIOLOGY - GENER AL ORDERABLES Performing Organization Address City/[facility]/[place] [address] * (ABNORMAL) Urinalysis Microscopic Exam (04/19/2023 10:25 AM EST) RBC, Urine 1 0 - 4 /HPF [facility] WBC, Urine 10(H) 0 - 5 /HPF [facility] Squamous Epithelial Cells Raw Data, Urine 4 <=4 /HPF [facility] Hyaline Casts, Urine 1 0 - 2 /LPF [facility] Clean Catch Urine 04/19/2023 10:25 AM EST 04/19/2023 11:08 AM EST Narrative Resulting Agency Comment Spec In Lab Carrol SANDRA URINE ORDERABLES [facility] [place] [address] * (ABNORMAL) Urinalysis with reflex Culture (04/19/2023 10:25 AM EST) Glucose, Urine Dipstick >=1000(Criti edy) Negative mg/dL [facility] Comment: Urinalysis result NOT critical without a combination of Glucose greater than or equal to 500 mg/dL AND Ketones greater than or equal to 80 mg/dL Protein, Urine Dipstick Negative Negative mg/dL [facility] Bilirubin, Urine Dipstick Negative Negative mg/dL [facility] Comment: Clinical correlation required for positive Urine Bilirubin results as false positive may occur with some drugs and drug related products. If a false positive is suspected a serum total bilirubin should be considered if clinically indicated. Urobilinogen, Urine Dipstick Normal Normal mg/dL [facility] pH, Urn (dipstick) 5.5 5.0 - 8.0 [facility] Blood, Urine Dipstick Negative Negative mg/dL [facility] Ketone, Urine Dipstick Negative Negative mg/dL [facility] Nitrite, Urine Dipstick Negative Negative [facility] Leukocytes, Urine Dipstick Small(A) Negative mcL [facility] Appearance, Urine Dipstick Clear Clear [facility] Specific [place] Urine Automated 1.024 1.005 - 1.030 [facility] Color, Urine Dipstick Yellow Yellow [facility] Reflex to Culture Yes [facility] Clean Catch Urine 04/19/2023 10:25 AM EST 04/19/2023 11:08 AM EST Narrative Resulting Agency Comment Spec In Lab Ailyn Knight MD URINE ORDERABLES [facility] [place] [address] * Arterial Duplex Arm, Unilat (04/19/2023 9:40 AM EST) VB Text Report Department: Vascular Surgery Lab Patient: [id number] (LOIDA MADRIGAL) CPT: 74747 Referring Physician: AILYN KNIGHT ?? Phone: Indications: [...] White Blood Cell 7.5 4.0 - 9.5 x10(3)/[facility] [address] LABORATORY Red Blood Cell 4.86 4.00 - 5.21 x10(6)/[facility] [address] LABORATORY Hemoglobin 14.8 11.7 - 15.5 g/dL [facility] Hematocrit 45.5 35.7 - 45.8 % [facility] Mean Cell Volume 93.6 82.6 - 94.4 fL [facility] Mean Cell Hemoglobin 30.5 27.1 - 32.0 pg [facility] Mean Cell Hemoglobin Concentration 32.5 31.7 - 35.0 g/dL [facility] Platelet 240 145 - 357 x10(3)/[facility] [address] LABORATORY RDW Standard Deviation 43.8 37.0 - 46.0 fL [facility] RDW coefficient of variation 12.7 11.5 - 14.1 % [facility] Mean Platelet Volume 11.0 7.6 - 12.9 fL [facility] NRBC% auto 0.0 % [facility] NRBC Absolute 0.000 0.000 - 0.000 x10(3)/[facility] [address] LABORATORY Blood 04/19/2023 2:40 AM EST 04/19/2023 2:57 AM EST Narrative Resulting Agency Comment Spec In Lab Ailyn Knight MD HEMATOLOGY ORDERABLE S [facility] [place] [address] * (ABNORMAL) BMP w/fasting Glucose (04/19/2023 2:40 AM EST) [facility] Glucose Fasting 106(H) 65 - 99 mg/dL [facility] Comment: ?Fasting* Glucose Interpretive Criteria Normal [...] of Diabetes Mellitus, Position Statement from the [place] [employer]. ??Diabetes Care, Volume 33, Supplement 1, Mar 2009 Blood Urea Nitrogen 22(H) 8 - 18 mg/dL [facility] Creatinine 1.11 0.70 - 1.20 mg/dL [facility] Sodium 139 135 - 145 mmol/L [facility] Potassium 4.0 3.5 - 5.0 mmol/L [facility] Comment: Please note: ??Patients with WBC >100,000 may have falsely elevated Potassium levels. ??For accurate Potassium quantification in these patients send serum separator tube (gold top) for subsequent determinations. ??Contact the Clinical Chemistry Laboratory if there are any questions. Chloride 105 98 - 107 mmol/L [facility] Carbon Dioxide 20(L) 22 - 31 mmol/L [facility] Anion Gap 14 5 - 15 mmol/L [facility] Calcium 9.5 8.5 - 10.5 mg/dL [facility] Est Glomerular Filtration Rate 59(L) >=60 mL/min/1. 73 m?? [facility] Comment: This patient's estimated GFR was [...] Knight MD CHEMISTRY ORDERABLES Performing Organization Address [facility] de Phone Number [facility] [address] * Magnesium (04/19/2023 2:40 AM EST) Magnesium 0.97 0.69 - 1.07 mmol/L [facility] Blood 04/19/2023 2:40 AM EST 04/19/2023 2:57 AM EST Narrative Resulting Agency Comment Spec In Lab Ailyn Knight MD CHEMISTRY ORDERABLES Performing Organization Address [facility] de Phone Number [place] [phone] * CARDIAC CATHETERIZATION (04/18/2023 11:05 AM EST) Anatomical Region Laterality Modality Other Narrative 04/19/2023 6:57 AM EST ?[facility] ? Cardiac Catheterization/Intervention Report ? Patient Name: Neisha, Loida ? Procedure Date: 04/18/2023 ? A #: [id number] ? Primary Physician: Dustin Carrasco ? Case #: [id number] ? File Name: [id number] ? Catheterization Order Number: [id number] ? [facility] ? Final Report [place], [place] ? Patient Name: ? Loida Neisha ? ID#: ?[id number] ? : ?1970 ? Procedure Date: ? [...] procedure was Urgent. The indication for ?the geophysical laboratory chief visit is ACS greater than 24 hrs. [...] Procedure Note Dustin Carrasco MD - 05/03/2023 [facility] Cardiac Catheterization/Intervention Report Patient Name: Loida Madrigal Procedure Date: 04/18/2023 A #: [id number] Primary Physician: Dustin Carrasco Case #: [id number] File Name: [id number] Catheterization Order Number: [id number] [facility] FinalReport [place], [place] Patient Name: Loida Madrigal ID#:[id number] :1970 Procedure Date: April 18, 2023 Case [...] patient was designated as ASA Class III. [facility] 4: Vulnerable. [...] diagnostic procedure was Urgent. The indicationfor the geophysical laboratory chief visit is ACS greater than 24 hrs. [...] units of heparin were administered. A total [id number] of Omnipaque were opened, 65cc of Omnipaque were administered [id number] of Omnipaque were wasted. Radiation: Fluoro time [...] (unfractionated) Level (04/18/2023 8:23 AM EST) Pathologist [facility] UF Heparin 0.39 IU/mL [facility] Comment: Heparin (anti-Xa) levels should be [...] Lab Lloyd Maloney MD HEMATOLOGY ORDERABLE S [facility] [place] [address] * Differential, Automated (04/18/2023 2:10 AM EST) Pathologist [facility] Neutrophil % 51.4 % [facility] Neutrophil Absolute 3.43 1.70 - 6.10 x10(3)/[facility] [address] LABORATORY Lymph % 33.8 % [facility] Lymphocytes Abs 2.2 0.9 - 3.2 x10(3)/[facility] [address] LABORATORY Monocyte % 9.9 % [facility] Monocyte Abs 0.7 0.3 - 0.9 x10(3)/[facility] [address] LABORATORY Eos % 3.9 % [facility] Eosinophils Abs 0.3 0.0 - 0.4 x10(3)/[facility] [address] LABORATORY Basophil % 0.8 % [facility] Baso Absolute 0.0 0.0 - 0.1 x10(3)/[facility] [address] LABORATORY Immature Gran % 0.20 % [facility] Comment: Immature granulocytes(IG's)percentage and absolute count will include metamyelocytes, myelocytes, and promyelocytes. Blood smears from CBCs yielding IG's will be scanned manually for concordance. If this scan disagrees with the automated IG or if promyelocytes are noted, a manual differential will be performed. Immature Gran Absolute 0.01 0.00 - 0.04 x10(3)/[facility] [address] LABORATORY Blood 04/18/2023 2:10 AM EST 04/18/2023 2:44 AM EST Narrative Resulting Agency Comment Spec In Lab Lloyd Maloney MD HEMATOLOGY ORDERABLE S Performing Organization Address City/State/[facility] Co de Phone Number [facility] [place] [address] * Hemogram (04/18/2023 2:10 AM EST) White Blood Cell 6.7 4.0 - 9.5 x10(3)/[facility] [address] LABORATORY Red Blood Cell 4.93 4.00 - 5.21 x10(6)/[facility] [address] LABORATORY Hemoglobin 15.2 11.7 - 15.5 g/dL [facility] Hematocrit 44.9 35.7 - 45.8 % [facility] Mean Cell Volume 91.1 82.6 - 94.4 fL [facility] Mean Cell Hemoglobin 30.8 27.1 - 32.0 pg [facility] Mean Cell Hemoglobin Concentration 33.9 31.7 - 35.0 g/dL [facility] Platelet 233 145 - 357 x10(3)/[facility] [address] LABORATORY RDW Standard Deviation 42.0 37.0 - 46.0 fL [facility] RDW coefficient of variation 12.8 11.5 - 14.1 % [facility] Mean Platelet Volume 11.3 7.6 - 12.9 fL [facility] NRBC% auto 0.0 % [facility] NRBC Absolute 0.000 0.000 - 0.000 x10(3)/mcL [facility] Blood 04/18/2023 2:10 AM EST 04/18/2023 2:44 AM EST Narrative Resulting Agency Comment Spec In Lab Lloyd Maloney MD HEMATOLOGY ORDERABLE S Performing Organization Address [facility] de Phone Number [facility] [place] [address] * Heparin (unfractionated) Level (04/18/2023 2:10 AM EST) UF Heparin 0.50 IU/mL [facility] Comment: Heparin (anti-Xa) levels should be [...] HEMATOLOGY ORDERABLE S Performing Organization Address [facility] de Phone Number [facility] [place] [address] * (ABNORMAL) BMP w/fasting Glucose (04/18/2023 2:10 AM EST) Glucose Fasting 98 65 - 99 mg/dL [facility] Comment: ?Fasting* Glucose Interpretive [...] of Diabetes Mellitus, Position Statement from the [place] [employer]. ??Diabetes Care, Volume 33, Supplement 1, Mar 2009 Blood Urea Nitrogen 23(H) 8 - 18 mg/dL [facility] Creatinine 1.18 0.70 - 1.20 mg/dL [facility] Sodium 143 135 - 145 mmol/L [facility] Potassium 3.6 3.5 - 5.0 mmol/L [facility] Comment: Please note: ??Patients with WBC >100,000 may have falsely elevated Potassium levels. ??For accurate Potassium quantification in these patients send serum separator tube (gold top) for subsequent determinations. ??Contact the Clinical Chemistry Laboratory if there are any questions. Chloride 107 98 - 107 mmol/L [facility] Carbon Dioxide 24 22 - 31 mmol/L [facility] Anion Gap 12 5 - 15 mmol/L [facility] Calcium 9.2 8.5 - 10.5 mg/dL [facility] Est Glomerular Filtration Rate 55(L) >=60 mL/min/1. 73 m?? [facility] Comment: This patient's estimated GFR was [...] Ailyn Knight MD CHEMISTRY ORDERABLES [facility] [place] [address] * Magnesium (04/18/2023 2:10 AM EST) Magnesium 1.02 0.69 - 1.07 mmol/L [facility] Blood 04/18/2023 2:10 AM EST 04/18/2023 2:44 AM EST Narrative Resulting Agency Comment Spec In Lab Ailyn Knight MD CHEMISTRY ORDERABLES Performing Organization Address City/[facility] Co de Phone Number [facility] [place] [address] * LDL Cholesterol, Direct (04/18/2023 2:10 AM EST) LDL Cholesterol, Direct 105 mg/dL [facility] Comment: Lowest Risk: <100 mg/dL Lower Risk: 100-129 mg/dL Borderline High Risk: 130-159 mg/dL High Risk: 160-189 mg/dL Very High Risk: >na=095 mg/dL Blood 04/18/2023 2:10 AM EST 04/18/2023 2:44 AM EST Narrative Resulting Agency Comment Spec In Lab Lloyd Maloney MD CHEMISTRY ORDERABLES Performing Organization Address [facility] Co de Phone Number [facility] [place] [address] * Hemoglobin A1c (04/18/2023 2:10 AM EST) Hemoglobin A1c 5.6 4.3 - 5.6 % [facility] Comment: Reference Range: 4.3 - 5.6% [...] Mellitus, Diabetes Care 2013; 36: Suppl. 1, U13-96 Estimated Average Glucose 115 mg/dL [facility] Blood 04/18/2023 2:10 AM EST 04/18/2023 2:44 AM EST Narrative Resulting Agency Comment Spec In Lab Lloyd Maloney MD CHEMISTRY ORDERABLES [facility] [address] [place] [address] * Lipid Panel (Reflex Direct LDL) (04/18/2023 2:10 AM EST) Cholesterol, Total 173 mg/dL [facility] Comment: Lower Risk: <200 mg/dL Average Risk: 200-239 mg/dL Higher Risk: >qu=508 mg/dL Triglyceride 174 mg/dL [facility] Comment: Average Risk/Lower Risk: <150 mg/dL Borderline High Risk: 150-199 mg/dL High Risk: 200-499 mg/dL Very High Risk: >gg=182 mg/dL HDL Cholesterol 44 mg/dL [facility] Comment: Males: ?? Higher Risk: <40 mg/dL Females: ?? Higher Risk: <50 mg/dL LDL Cholesterol 94 mg/dL [facility] Comment: Lowest Risk: <100 mg/dL Lower Risk: 100-129 mg/dL Borderline High Risk: 130-159 mg/dL High Risk: 160-189 mg/dL Very High Risk: >um=176 mg/dL Cholesterol/HDL Ratio 3.9 ratio [facility] Lipid Interpretation See Note [facility] Comment: Lipid management should be guided by a patient? s ASCVD risk, goals and preferences. ACC/AHA Guidelines recommend high intensity statin if clinical ASCVD or LDL greater than or equal to 190 mg/dL. http://Pickliveurl.com/NDR-UFM-Npzaqkace Adults aged 40-75 with LDL 70-189 mg/dL should have their 10 year ASCVD risk estimated with the ACC/AHA ASCVD risk estimator project manager http://tools.acc.org/YCBPS-Yigo-Jdlbgklov/ Statin should be discussed if risk greater [...] Maloney MD CHEMISTRY ORDERABLES Performing Organization Address [facility] Co de Phone Number [facility] [place] [address] * POCT Glucose (04/17/2023 7:44 PM EST) Glucose, POC 128 65 - 199 mg/dL [facility] Comment: Supplemental ranges: <140 mg/dL before meals <180 mg/dL all other times of the day Blood 04/17/2023 7:44 PM EST 04/17/2023 7:44 PM EST Ailyn Knight MD POINT OF CARE TEST O RDERABLES Performing Organization Address [facility] Co de Phone Number [facility] [place] [address] * (ABNORMAL) Heparin (unfractionated) Level (04/17/2023 6:01 PM EST) UF Heparin 1.14(Crit ical) IU/mL [facility] Comment: Critical Result called by ?? [...] HEMATOLOGY ORDERABLE S Performing Organization Address [facility] Co de Phone Number [facility] [place] [address] * (ABNORMAL) Heparin (unfractionated) Level (04/17/2023 12:45 PM EST) UF Heparin 1.39(Crit ical) IU/mL [facility] Comment: Critical Result called [...] HEMATOLOGY ORDERABLE S Performing Organization Address [facility]/ZIP Co de Phone Number [facility] [place] [address] * ECHO LMTD W CONTRAST W LMTD SPEC DOPP COLOR DOPP (04/17/2023 11:59 AM EST) EF 58 HEARTLAB SYSTEM Anatomical Region Laterality Modality Cardiac Other 04/17/2023 10:2 4 AM EST Narrative 04/17/2023 12:[address] [address] ? Echocardiogram Report Name: LOIDA MADRIGAL ? Study Date: 04/17/2023 10:24 AMBP: 114/64 mmHg ? Patient Location: : 1970 ? Height: 160 cm ? Account: [id number] Age: 53 yrs ? Weight: 98 kg Gender: Female ?BSA: 2.0 m2 Ordering Physician: LLOYD MALONEY Referring Physician: LLOYD MALONEY Performed By: HAIM Becerra Reason For Study: Chest pain; NSTEMI Exam Location: [facility]. Interpretation Summary Left ventricle is normal in size and wall thickness. Normal global systolic function with regional wall motion abnormalities as ascribed on the anterior/anterolateral aspect. Right ventricle is normal in size and systolic function. No significant cardiac valve findings. No pericardial effusion. Compared to prior study dated 02/09/2023, the extent of the anterior abnormal wall motion has increased. Procedure Limited - [id number]. Image enhancement Optison was used for left [...] Note Jaspreet Kinsey MD - 04/17/2023 [address] [place] [address] Echocardiogram Report Name: LOIDA MADRIGAL Study Date: 0:24 AMBP: 114/64 mmHg Patient Location: : 1970 Height: 160 cm Account: [id number] Age: 53 yrs Weight: 98 kg Gender: Female BSA: 2.0 m2 Ordering Physician: LLOYD MALONEY Referring Physician: LLOYD MALONEY Performed By: HAIM Becerra Reason For Study: Chest pain; NSTEMI Exam Location: [facility]. Interpretation Summary Left ventricle is normal in size and wall thickness. Normal globalsystolic function with regional wall motion abnormalities as ascribed on the anterior/anterolateral aspect. Right ventricle is normal in size and systolic function. No significant cardiac valve findings. No pericardial effusion. Compared to prior study dated 02/09/2023, the extent of the anteriorabnormal wall motion has increased. Procedure Limited - [id number]. Image enhancement Optison was used for left [...] Heparin (unfractionated) Level (04/17/2023 6:43 AM EST) [facility] UF Heparin 1.41(Crit ical) IU/mL [facility] Comment: Critical Result called by ?? [...] Maloney MD HEMATOLOGY ORDERABLE S [facility] [place] [address] * (ABNORMAL) Troponin (04/17/2023 6:43 AM EST) Troponin-T, High Sensitivity 23(H) <=14 ng/L [facility] Comment: This patient's troponin T concentration [...] troponin value can be found in the [facility] Laboratory Test Catalog Troponin - [facility] Laboratory Test Catalog Reference: Fourth [place] Definition of Myocardial Infarction. Journal of the [place] College of Cardiology 2018;72:8145-4806 Blood 04/17/2023 6:43 AM EST 04/17/2023 6:52 AM EST Narrative Resulting Agency Comment Spec In Lab Lloyd Maloney MD CHEMISTRY ORDERABLES Performing Organization Address City/State/[facility] Co de Phone Number [facility] [place] [address] * EKG 12 Lead (04/17/2023 3:41 AM EST) Ventricular rate 47 BPM MUSE SYSTEM Atrial Rate 47 BPM MUSE SYSTEM P-R Interval 186 ms MUSE SYSTEM QRS Duration 90 ms MUSE SYSTEM Q-T Interval 578 ms MUSE SYSTEM QTC Calculated (Bezet) 511 ms MUSE SYSTEM Calculated P [place] 24 degrees MUSE SYSTEM Calculated R [place] 23 degrees MUSE SYSTEM Calculated T [place] 27 degrees MUSE SYSTEM INTERPRETATION Sinus bradycardia with Premature atrial complexes Possible Left atrial enlargement Possible Lateral infarct , age undetermined Prolonged QT Abnormal ECG When compared with ECG of 01-APR-2023 12:28, Premature atrial complexes are now Present Vent. rate has decreased BY ??33 BPM Nonspecific T wave abnormality, improved in Anterior leads Confirmed by MD Angelo Danette ([id number]) on 04/20/2023 8:28:40 PM MUSE SYSTEM 04/17/2023 3:41 AM EST 04/20/2023 8:28 PM EST Lloyd Maloney MD ECG ORDERABLES MUSE SYSTEM * Differential, Automated (04/17/2023 3:33 AM EST) Neutrophil % 54.4 % [facility] Neutrophil Absolute 4.02 1.70 - 6.10 x10(3)/[facility] [address] [facility] LAB[facility] Lymph % 32.0 % [facility] Lymphocytes Abs 2.4 0.9 - 3.2 x10(3)/[facility] [address] LAB[facility] Monocyte % 8.7 % [facility] Monocyte Abs 0.6 0.3 - 0.9 x10(3)/[facility] [address] LABORAT[facility] Eos % 3.9 % [facility] Eosinophils Abs 0.3 0.0 - 0.4 x10(3)/[facility] [address] [facility] Basophil % 0.7 % [facility] Baso Absolute 0.0 0.0 - 0.1 x10(3)/[facility] [address] LABORATORY Immature Gran % 0.30 % [facility] Comment: Immature granulocytes(IG's)percentage and absolute count will include metamyelocytes, myelocytes, and promyelocytes. Blood smears from CBCs yielding IG's will be scanned manually for concordance. If this scan disagrees with the automated IG or if promyelocytes are noted, a manual differential will be performed. Immature Gran Absolute 0.02 0.00 - 0.04 x10(3)/[facility] [address] [facility] Blood 04/17/2023 3:33 AM EST 04/17/2023 3:42 AM EST Narrative Resulting Agency Comment Spec In Lab Lloyd Maloney MD HEMATOLOGY ORDERABLE S [facility] [place] [address] * Hemogram (04/17/2023 3:33 AM EST) White Blood Cell 7.4 4.0 - 9.5 x10(3)/[facility] [address] LAB[facility]AT[facility] Red Blood Cell 4.79 4.00 - 5.21 x10(6)/[facility] [address] [facility] Hemoglobin 14.8 11.7 - 15.5 g/dL [facility] Hematocrit 44.3 35.7 - 45.8 % [facility] Mean Cell Volume 92.5 82.6 - 94.4 fL [facility] Mean Cell Hemoglobin 30.9 27.1 - 32.0 pg [facility] Mean Cell Hemoglobin Concentration 33.4 31.7 - 35.0 g/dL [facility] Platelet 233 145 - 357 x10(3)/[facility] [address] [facility] RDW Standard Deviation 43.4 37.0 - 46.0 fL [facility] RDW coefficient of variation 12.7 11.5 - 14.1 % [facility] Mean Platelet Volume 11.0 7.6 - 12.9 fL [facility] NRBC% auto 0.0 % [facility] NRBC Absolute 0.000 0.000 - 0.000 x10(3)/[facility] [address] [facility] Blood 04/17/2023 3:33 AM EST 04/17/2023 3:42 AM EST Narrative Resulting Agency Comment Spec In Lab Lloyd Maloney MD HEMATOLOGY ORDERABLE S [facility] [place] [address] * Sedimentation rate (04/17/2023 3:33 AM EST) Sedimentation Rate Automated 12 2 - 39 mm/hr [facility] Comment: Effective February 15, 2019 new capillary photometric technology has resulted in a change in reference ranges. It is recommended that each ESR result be reviewed with its own age appropriate reference range. Blood 04/17/2023 3:33 AM EST 04/17/2023 3:42 AM EST Narrative Resulting Agency Comment Spec In Lab Lloyd Maloney MD HEMATOLOGY ORDERABLE S Performing Organization Address City/[facility]/[place] [address] * CRP, acute inflammation (04/17/2023 3:33 AM EST) C-Reactive Protein <3.0 <=4.9 mg/L [facility] Blood 04/17/2023 3:33 AM EST 04/17/2023 3:42 AM EST Narrative Resulting Agency Comment Spec In Lab Lloyd Maloney MD CHEMISTRY ORDERABLES Performing Organization Address [facility] Co de Phone Number [facility] [place] [address] * (ABNORMAL) Troponin (04/17/2023 3:33 AM EST) Troponin-T, High Sensitivity 24(H) <=14 ng/L [facility] Comment: This patient's troponin T concentration [...] troponin value can be found in the [facility] Laboratory Test Catalog Troponin - [facility] Laboratory Test Catalog Reference: Fourth [place] Definition of Myocardial Infarction. Journal of the [place] College of Cardiology 2018;72:2456-1748 Blood 04/17/2023 3:33 AM EST 04/17/2023 3:42 AM EST Narrative Resulting Agency Comment Spec In Lab Lloyd Maloney MD CHEMISTRY ORDERABLES [facility] [place] [address] * (ABNORMAL) APTT (04/17/2023 3:33 AM EST) Partial Thromboplastin Time 40(H) 25 - 37 sec [facility] Comment: The PTT is NOT appropriate for heparin monitoring. Use the Anti-Xa level for heparin monitoring (HEP UFH) or LMWH monitoring (HEP LMW). A PTT less than 37 seconds generally indicates adequate hemostasis. Blood 04/17/2023 3:33 AM EST 04/17/2023 3:42 AM EST Narrative Resulting Agency Comment Spec In Lab Lloyd Maloney MD HEMATOLOGY ORDERABLE S Performing Organization Address [facility] Co de Phone Number [facility] [place] [address] * (ABNORMAL) Prothrombin Time (04/17/2023 3:33 AM EST) Prothrombin Time 13.3(H) 9.4 - 12.5 sec [facility] International Normalization Ratio 1.2 [facility] Comment: An INR <2.0 indicates adequate [...] MD HEMATOLOGY ORDERABLE S Performing Organization Address City/[facility]/ZIP Co de Phone Number [facility] [place] [address] * Hepatic Function Panel (04/17/2023 3:33 AM EST) Protein, Total 6.9 6.1 - 8.0 g/dL [facility] Albumin 4.2 3.2 - 5.2 g/dL [facility] Aspartate Aminotransferase Not Perf 0 - 30 [facility] Comment: Unable to quantitate due to sample hemolysis. ??Sample redraw suggested. Called by: Danny Bowles, Read back by: Nyla Cassidy, Date/Time:04/17/23 05:06. Alanine Aminotransferase 17 0 - 30 unit/L [facility] Alkaline Phosphatase 59 35 - 105 unit/L [facility] Bilirubin, Total 0.4 0.2 - 1.3 mg/dL [facility] Bilirubin, Direct 0.1 0.0 - 0.3 mg/dL [facility] Blood 04/17/2023 3:33 AM EST 04/17/2023 3:42 AM EST Narrative Resulting Agency Comment Spec In Lab Lloyd Maloney MD CHEMISTRY ORDERABLES Performing Organization Address City/[facility]/ZIP Co de Phone Number [facility] [place] [address] * (ABNORMAL) pro-Brain Natriuretic Peptide (04/17/2023 3:33 AM EST) Pathologist [facility] NT-proBNP 867(H) <=124 pg/mL [facility] Blood 04/17/2023 3:33 AM EST 04/17/2023 3:42 AM EST Narrative Resulting Agency Comment Spec In Lab Lloyd Maloney MD CHEMISTRY ORDERABLES Performing Organization Address City/[facility]/ZIP Co de Phone Number [facility] [place] [address] * (ABNORMAL) TSH (04/17/2023 3:33 AM EST) Pathologist [facility] Thyroid Stimulating Hormone 5.93(H) 0.27 - 4.20 mcIU/mL [facility] Comment: Reference Interval (mcIU/mL): Females: ??First Trimester: 0.23-3.88 ??Second Trimester: 0.22-3.90 ??Third Trimester: 0.44-4.66 Blood 04/17/2023 3:33 AM EST 04/17/2023 3:42 AM EST Narrative Resulting Agency Comment Spec In Lab Lloyd Maloney MD CHEMISTRY ORDERABLES Performing Organization Address [facility] de Phone Number [facility] [place] [address] * Phosphorus (04/17/2023 3:33 AM EST) Phosphorus 4.1 2.5 - 4.5 mg/dL [facility] Blood 04/17/2023 3:33 AM EST 04/17/2023 3:42 AM EST Narrative Resulting Agency Comment Spec In Lab Lloyd Maloney MD CHEMISTRY ORDERABLES Performing Organization Address [facility] Phone Number [facility] [place] [address] * Magnesium (04/17/2023 3:33 AM EST) Magnesium 0.99 0.69 - 1.07 mmol/L [facility] Blood 04/17/2023 3:33 AM EST 04/17/2023 3:42 AM EST Narrative Resulting Agency Comment Spec In Lab Lloyd Maloney MD CHEMISTRY ORDERABLES Performing Organization Address [facility] de Phone Number [facility] [place] [address] * (ABNORMAL) Basic Metabolic Panel (non-fasting) (04/17/2023 3:33 AM EST) Glucose 89 65 - 199 mg/dL [facility] Comment:Diabetes: >=200 mg/d L plus symptoms Blood Urea Nitrogen 19(H) 8 - 18 mg/dL [facility] Creatinine 1.19 0.70 - 1.20 mg/dL [facility] Sodium 141 135 - 145 mmol/L [facility] Potassium 4.0 3.5 - 5.0 mmol/L [facility] Comment: Please note: ??Patients with WBC >100,000 may have falsely elevated Potassium levels. ??For accurate Potassium quantification in these patients send serum separator tube (gold top) for subsequent determinations. ??Contact the Clinical Chemistry Laboratory if there are any questions. Chloride 106 98 - 107 mmol/L [facility] Carbon Dioxide 22 22 - 31 mmol/L [facility] Anion Gap 13 5 - 15 mmol/L [facility] Calcium 9.4 8.5 - 10.5 mg/dL [facility] Est Glomerular Filtration Rate 54(L) >=60 mL/min/1. 73 m?? [facility] Comment: This patient's estimated GFR was [...] Lloyd Maloney MD CHEMISTRY ORDERABLES [facility] [place] [address] * Film Library- Storage Only CT Chest [...] Rooney RN) 810 (Given - Provider: Charity aJckson RN)2100 (Given - Provider: Zoila Rooney RN) [...] dose, Starting on 04/17/23 at 0304, Until Auar 04/22/23 at 1956, for discomfort with PIV [...] documented as of this encounter Care Teams Merchandising Coordinator Relationship Specialty Start Date End Date Polo Pearce PA [address] [place] [address] PCP - General Internal Medicine 06/09/21 documented as of this encounter
--- OUTSIDE RECORDS SUMMARY | 2024-04-10 17:09 | XMS_ITS | Encounter Summary ---
Author Organization [facility] Address [facility] [place] [address] Care Team Providers Care Photo Specialist Name Role Phone Polo Pearce Primary Care Provider [phone] Encounter Details Date Type Department Care Team (Late st Contact Info) Description 04/16/2023 Ancillary Procedure Radiology Library at [facility] [place] [address] Social History Tobacco Use Types Packs/Day Years Used Date Smoking Tobacco: Never Smokeless Tobacco: Never Alcohol Use Standard Drinks/Week Comments Never 0 (1 standard drink = 0.6 oz pur e alcohol) [facility] Utilities Answer Date Recorded In the past 12 months has e [employer], gas, oil, or water [employer] threatened to shut off services in your [...] in a mcc (including now)? No 02/10/2023 IPV Inpatient Questions [...] 3:00 PM EDT Office [place] [address] Mary [place] [address] documented as of this encounter Procedures Procedure [...] filedocumented in this encounter Care Teams Photo Specialist Relationship Specialty Start Date End Date Polo Pearce PA [address] [place] [address] PCP - General Internal Medicine 06/09/21 documented as of this encounter
--- OUTSIDE RECORDS SUMMARY | 2024-04-10 17:09 | XMS_ITS | Encounter Summary ---
Author Organization [facility] [place] [address] Care Team Providers Care Room Service Associate Name Role Phone Polo Pearce Primary Care Provider [phone] Encounter Details Date Type Department Care Team (Late st Contact Info) Description 04/16/2023 Telephone Cardiology at [address] [address] Vaishnavi Pratt MD [facility] [place] [address] Social History Tobacco Use Types Packs/Day Years Used Date Smoking Tobacco: Never Smokeless Tobacco: Never Alcohol Use Standard Drinks/Week Comments Never 0 (1 standard drink = 0.6 oz pur e alcohol) [facility] Utilities Answer Date Recorded In the past 12 months has e [employer], gas, oil, or water [employer] threatened to shut off services in your [...] included. Initial Contact Date: 04/16/23 Referring Provider: [place] Patient Location: [facility] HPI: 53 y.o. woman with paroxysmal [...] short RP). So she was transferred to [facility] for EPS and ablation. She now presents to [facility] with chest discomfortthat started overnight. Upon chart review of Rn notes, patient reports that prior to the procedure she was having chest pain, worse with laying flat. She continued to have feelings of warmth and diaphoresis which improvedmildly immediately after procedure but resumed a few days after. Patient also had an admission to [facility] for chest pain on 02/11/23 and [...] that was done by the on-call overnight transmitter supervisor, there is no significant change in [...] and Asa load. Will accept patient to [facility] for further workup. Although history sounds suspicious for pericarditis, recent ESR/CRP were normal. Suspect at [facility] patient will need to complete ischemic workup. Recommendations: Heparin gtt, Asa load, High intensity statin Transfer to [facility] Above recommendations were based on my discussion with OSH; I have not personally interviewed or examined this patient. Advised to call the transfer center back with any changes in the patient condition. Vaishnavi Pratt MD Insurance Policy Issue Clerk documented in this encounter Plan of Treatment Upcoming Encounters Date Type Department Care Team (Late st Contact Info) Description 07/19/2024 3:00 PM EDT Office [place] [address] Mary Reyes, [place] [address] documented as of this encounter Visit Diagnoses Not on filedocumented in this encounter Care Teams Room Service Associate Relationship Specialty Start Date End Date Polo Pearce PA [address] [place] [address] PCP - General Internal Medicine 06/09/21 documented as of this encounter
--- OUTSIDE RECORDS SUMMARY | 2024-04-10 17:09 | XMS_ITS | Encounter Summary ---
Author Organization [facility] Address [facility] [place] [address] Care Team Providers Care Eyeglass Maker Name Role Phone Polo Pearce Primary Care Provider [phone] Encounter Details Date Type Department Care Team (Late st Contact Info) Description 02/16/2023 11:20 AM EST Office Visit Cardiology at [address] [address] Jed Tovar MD [facility] [place] [address] PAF (paroxysmal atrial fibrillation); SVT (supraventricular tachycardia) Social History Tobacco Use Types Packs/Day Years Used Date Smoking Tobacco: Never Smokeless Tobacco: Never Alcohol Use Standard Drinks/Week Comments Never 0 (1 standard drink = 0.6 oz pur e alcohol) [facility] Utilities Answer Date Recorded In the past 12 months has [employer], gas, oil, or water company threatened [...] Follow Up Patient ID Indira Roque [id number] Indira Roque is following up in EP [...] CHILDREN): normal bi-v s/f. 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 I have personally reviewed all [...] permanent pacemaker insertion, and the risk of stroke/[place]/deathshould left-sided access be required) were reviewed in [...] 3:00 PM EDT Office [place] [address] [place] [address] documented as of this encounter Procedures Procedure [...] (Bezet) 511 ms MUSE SYSTEM Calculated P [place] 24 degrees MUSE SYSTEM Calculated R [place] 35 degrees MUSE SYSTEM Calculated T [place] 14 degrees MUSE SYSTEM INTERPRETATION Sinus bradycardia [...] dysrhythmias documented in this encounter Care Teams Eyeglass Maker Relationship Specialty Start Date End Date Polo Pearce PA [address] [place] [address] PCP - General Internal Medicine 06/09/21 documented as of this encounter
--- OUTSIDE RECORDS SUMMARY | 2024-04-10 17:09 | XMS_ITS | Encounter Summary ---
Author Organization [facility] Address [facility] [place] [address] Care Team Providers Care Wood Cutter Name Role Phone Polo Pearce Primary Care Provider [phone] Encounter Details Date Type Department Care Team [...] 3:00 PM EDT Office Visit [place] [address] [place] [address] documented as of this encounter Visit Diagnoses Not on filedocumented in this encounter Care Teams Wood Cutter Relationship Specialty Start Date End Date Polo Pearce PA [address] [place] [address] PCP - General Internal Medicine 06/09/21 documented as of this encounter
--- OUTSIDE RECORDS SUMMARY | 2024-04-10 17:10 | XMS_ITS | Encounter Summary ---
[place] [address] Care Team Providers Care Aircraft Machinist Name Role Phone Polo Pearce Primary Care Provider [phone] Encounter Details Date Type Department Care Team (Late st Contact Info) Description 02/08/2023 Orders [place] [phone] Unknown None Social History Tobacco Use Types Packs/Day Years Used Date Smoking Tobacco: Never Smokeless Tobacco: Never Alcohol Use Standard Drinks/Week Comments Never 0 (1 standard drink = 0.6 oz pur e alcohol) [facility] Utilities Answer Date Recorded In the past 12 months has e electric, gas, oil, or water [employer] threatened to shut off services in [...] 3:00 PM EDT Office [place] [address] [place] [address] documented as of this encounter Procedures Procedure Name Priority Date/Time Associated Diagnosis Comments ECHOCARDIOGRAM TRANSTHORACIC Routine 02/08/2023 11:40 PM EST documented in this encounter Results * Echocardiogram Transthoracic (02/08/2023 11:40 PM EST) Anatomical Region Laterality Modality Cardiac Other 02/08/2023 11:4 0 PM EST Narrative 02/10/2023 3:09 PM EST [address] [place] [address] ? Echocardiogram Report Name: LOIDA ROQUE ?Study [...] without a pericardial effusion. Procedure Limited - 44908. Suboptimal quality. There is normal sinus rhythm. [...] Note Willy Gómez MD - 02/10/2023 [address] [place] [id number] Echocardiogram Report Name: LOIDA ROQUE Study Date: [...] without a pericardial effusion. Procedure Limited - 30461. Suboptimal quality. There is normal sinus rhythm. [...] filedocumented in this encounter Care Teams Aircraft Machinist Relationship Specialty Start Date End Date Polo Pearce PA [address] [place] [address] PCP - General Internal Medicine 06/09/21 documented as of this encounter
--- OUTSIDE RECORDS SUMMARY | 2024-04-10 17:10 | XMS_ITS | Encounter Summary ---
[place] [address] Care Team Providers Care Agent Ticketing Gate Name Role Phone Polo Pearce Primary Care Provider [phone] Encounter Details Date Type Department Care Team (Late st Contact Info) Description 06/30/2022 Orders Only Cardiology at [address] [phone] Jaspreet Kinsey MD [facility] [place] [address] Chest pain, unspecified type Social History Tobacco [...] 3:00 PM EDT Office Visit [place] [address] Mary Reyes APRN [facility] [place] [address] documented as of this encounter Visit Diagnoses Diagnosis Chest pain, unspecified type documented in this encounter Care Teams Agent Ticketing Gate Relationship Specialty Start Date End Date Polo Pearce PA [address] [place] [address] PCP - General Internal Medicine 06/09/21 documented as of this encounter
--- OUTSIDE RECORDS SUMMARY | 2024-04-10 17:10 | XMS_ITS | Encounter Summary ---
Author Organization [facility] Address [facility] [place] [address] Care Team Providers Care Agent Based Modeler Name Role Phone Polo Pearce Primary Care Provider [phone] Reason for Visit * Reason Comments Congestive Heart Failure HFpEF Encounter Details Date Type Department Care Team (Late st Contact Info) Description 10/08/2022 4:00 PM EDT Office Visit Cardiology at [address] [address] Jaspreet Kinsey MD [facility] [place] [address] Pulmonary embolism, unspecified chronicity, unspecified pulmonary embolism [...] through Care Everywhere. * Low Sodium Diet (Colombian) * Low Sodium Foods: General Info (Colombian) documented in this encounter Progress Notes * [...] be estimated Intercurrently, patient was [place] [facility] [place]. She presented after [...] 30 DAYS fluticasone propionate (FLONASE) 50 mcg/actuation [place], Suspension 1 spray, Each Nare, DAILY gabapentin [...] 3:00 PM EDT Office [place] [address] Mary Reyes APRN [place] [id number] documented as of this encounter Visit Diagnoses Diagnosis Pulmonary embolism, unspecified chronicity, unspecified pulmonary embolism type, unspecified whether acute cor pulmonale present Heart failure with preserved ejection fraction, unspecified HF chronicity Chronic heart failure with preserved ejection fraction documented in this encounter Care Teams Agent Based Modeler Relationship Specialty Start Date End Date Polo Pearce PA [address] [place] [address] PCP - General Internal Medicine 06/09/21 documented as of this encounter
--- OUTSIDE RECORDS SUMMARY | 2024-04-10 17:10 | XMS_ITS | Encounter Summary ---
Author Organization [facility] [place] [address] Care Team Providers Care Childrens Club Attendant Name Role Phone Polo Pearce Primary Care Provider [phone] Encounter Details Date Type Department Care Team (Late st Contact Info) Description 08/31/2022 External [place] [address] Social History Tobacco Use Types Packs/Day Years [...] 3:00 PM EDT Office [place] [address] [place] [address] documented as of this encounter Procedures Procedure Name Priority Date/Time Associated Diagnosis Comments ECG SCAN Routine 08/31/2022 2:00 PM EDT documented in this encounter Results * Scan Doc: ECG (08/31/2022 2:00 PM EDT) Historical Provider MD MEDIA MGR SCAN EX T ORDR/RSLT documented in this encounter Visit Diagnoses Not on filedocumented in this encounter Care Teams Childrens Club Attendant Relationship Specialty Start Date End Date Polo Pearce PA [address] [place] [address] PCP - General Internal Medicine 06/09/21 documented as of this encounter
--- OUTSIDE RECORDS SUMMARY | 2024-04-10 17:10 | XMS_ITS | Encounter Summary ---
Author Organization [facility] [place] [address] Care Team Providers Care Tailor Women'S Garment Alteration Name Role Phone Polo Pearce Primary Care Provider [phone] Encounter Details Date Type Department Care Team (Late st Contact Info) Description 08/31/2022 Telephone Cardiology at [address] [address] Carrol La PA [facility] [place] [address] Social History Tobacco Use Types Packs/Day Years [...] PM Referring Provider: Dr. Evans Patient Location: [facility] Brief History Lyubov Roque is a 52 y.o female with PMH of HFpEF, SVT, PE on Eliquis, HLD who presented to the OSH with nausea, diffuse abdominal pain. Developed chest pain that OSH provider reports was LUQ pain under left breast. [place] like a sharp, intermittent squeeze. Patient is [...] was LUQ abdominal pain under left breast. [place] like a sharp, intermittent squeeze that resolved [...] 300's range on prior lab checks in [facility] system. ACS seems unlikely at this time based on my discussion with Dr. Evans as her symptoms seem GI in origin. This may represent a type II NSTEMI in setting of CATIE and acute GI illness. I recommended close follow up with Dr. Kinsey, primary oncology registrar who can consider stress testing. In addition, [...] in management. Carrol La PA-C Access Pager [phone] 08/31/2022 documented in this encounter Plan of Treatment Upcoming Encounters Date Type Department Care Team (Late st Contact Info) Description 07/19/2024 3:00 PM EDT Office [place] [address] [place] [address] documented as of this encounter Visit Diagnoses Not on filedocumented in this encounter Care Teams Tailor Women'S Garment Alteration Relationship Specialty Start Date End Date Polo Pearce PA S[address] [address] PCP - General Internal Medicine 06/09/21 documented as of this encounter
--- OUTSIDE RECORDS SUMMARY | 2024-04-10 17:10 | XMS_ITS | Encounter Summary ---
Author Organization [facility] [place] [address] Care Team Providers Care Vegetable Washer Name Role Phone Polo Pearce Primary Care Provider [phone] Reason for Visit * Reason Onset Date Comments Ascites 07/28/2022 Chest Pain 07/28/2022 Encounter Details Date Type Department Care Team (Late st Contact Info) Description 07/28/2022 Telephone Cardiology at [address] [address] Jaspreet Kinsey MD [facility] [place] [address] Ascites; Chest Pain Social History Tobacco Use [...] 10:10 AM EDT Indira is inpatient at [facility] today. Nurse Madison indicates she is alert [...] Creat 1.3 Plan: will remain inpatient at [facility] Outpatient CT heart planned on July 30 - cancel and reschedule (notified [facility] card lab Lorena) documented in this encounter Plan of Treatment Upcoming Encounters Date Type Department Care Team (Late st Contact Info) Description 07/19/2024 3:00 PM EDT Office [place] [address] [place] [address] documented as of this encounter Visit Diagnoses Not on filedocumented in this encounter Care Teams Vegetable Washer Relationship Specialty Start Date End Date Polo Pearce PA [address] [place] [address] PCP - General Internal Medicine 06/09/21 documented as of this encounter
--- OUTSIDE RECORDS SUMMARY | 2024-04-10 17:10 | XMS_ITS | Encounter Summary ---
[place] [address] Care Team Providers Care Marine Engineering Teacher Name Role Phone Polo Pearce Primary Care Provider [phone] Encounter Details Date Type Department Care Team (Late st Contact Info) Description 07/28/2022 Telephone Cardiology at [address] [address] Jaspreet Kinsey MD [facility] [place] [address] Social History Tobacco Use Types Packs/Day Years [...] and would like a call back @ [phone] * Telephone Encounter - Nilda Mayes, RN - 07/28/2022 10:57 AM EDT Indira says she is being discharged to home from [facility] today. Home diuretic therapy isn't working well. When I'm in the hospital, it really comes down again. She asks if the fluid pill needs to be changed. Plan: to request discharge records from [facility] when available. * Telephone Encounter - Brenda Callahan - 07/28/2022 10:44 AM EDT PT called she was advised to call this office. She has a few questions. Prior notes in chart she has been at [facility]. She would like a call back from a nurse please. [phone] documented in this encounter Plan of Treatment Upcoming Encounters Date Type Department Care Team (Late st Contact Info) Description 07/19/2024 3:00 PM EDT Office [place] [address] [place] [address] documented as of this encounter Visit Diagnoses Not on filedocumented in this encounter Care Teams Marine Engineering Teacher Relationship Specialty Start Date End Date Polo Pearce PA [address] [address] PCP - General Internal Medicine 06/09/21 documented as of this encounter
--- OUTSIDE RECORDS SUMMARY | 2024-04-10 17:10 | XMS_ITS | Encounter Summary ---
Author Organization [facility] Address [facility] [place] [address] Care Team Providers Care Core Composer Feeder Name Role Phone Polo Pearce Primary Care Provider [phone] Encounter Details Date Type Department Care Team (Late st Contact Info) Description 03/19/2022 Telephone Cardiology at [address] [address] Jed Tovar MD [facility] [place] [address] Social History Tobacco Use Types Packs/Day Years [...] for two weeks. Has been admitted to [facility] ED for this with rule out of aorta dissection. However, pain continues. Dr. Kinsey of [facility] cardiology has just begun diuretic [...] 3:00 PM EDT Office [place] [address] Mary Reyes, [place] [address] documented as of this encounter Visit Diagnoses Not on filedocumented in this encounter Care Teams Core Composer Feeder Relationship Specialty Start Date End Date Polo Pearce PA [address] [place] [address] PCP - General Internal Medicine 06/09/21 documented as of this encounter
--- OUTSIDE RECORDS SUMMARY | 2024-04-10 17:10 | XMS_ITS | Encounter Summary ---
Author Organization [facility] [place] [address] Care Team Providers Care Eligibility Consultant Name Role Phone Polo Pearce Primary Care Provider [phone] Encounter Details Date Type Department Care Team (Late st Contact Info) Description 12/22/2022 Telephone Cardiology at [address] [address] Jaspreet iKnsey MD [facility] [place] [address] Social History Tobacco Use Types Packs/Day Years [...] PM EDT Office Visit [place] [address] [place] [address] documented as of this encounter Visit Diagnoses Not on filedocumented in this encounter Care Teams Eligibility Consultant Relationship Specialty Start Date End Date Polo Pearce PA [address] [place] [address] PCP - General Internal Medicine 06/09/21 documented as of this encounter
--- OUTSIDE RECORDS SUMMARY | 2024-04-10 17:10 | XMS_ITS | Encounter Summary ---
Author Organization [facility] [place] [address] Care Team Providers Care Entry Level Manufacturing Engineer Name Role Phone Polo Pearce Primary Care Provider [phone] Encounter Details Date Type Department Care Team (Late st Contact Info) Description 07/29/2022 9:50 PM EDT Ancillary Procedure Radiology Library at [facility] [place] [place] [phone] Marcia Kamara MD [facility] [place] [address] Social History Tobacco Use Types Packs/Day Years [...] 3:00 PM EDT Office Visit Gastroenterology at [facility] [place] [place] [address] Mary Reyes APRN [facility] [place] [address] documented as of this encounter Procedures Procedure [...] FILM LIBRARY ORD ERABLES Performing Organization Address City/State/[facility] Co de Phone Number [place], [place] documented in this encounter Visit Diagnoses Not on filedocumented in this encounter Care Teams Entry Level Manufacturing Engineer Relationship Specialty Start Date End Date Polo Pearce PA [address] [place] [address] PCP - General Internal Medicine 06/09/21 documented as of this encounter
--- OUTSIDE RECORDS SUMMARY | 2024-04-10 17:10 | XMS_ITS | Encounter Summary ---
Author Organization [facility] [place] [address] Care Team Providers Care C D Area Supervisor Name Role Phone Polo Pearce Primary Care Provider [phone] Encounter Details Date Type Department Care Team (Late st Contact Info) Description 04/16/2022 Refill Cardiology at [address] [place] [address] Jaspreet Kinsey MD [facility] [place] [address] Social History Tobacco Use Types Packs/Day Years [...] ??Order for CCTA placed by Dr. Kinsey. [facility] will contact you for scheduling. [...] her tocontinue on this. Phone # Is [phone] documented in this encounter Plan of Treatment Upcoming Encounters Date Type Department Care Team (Late st Contact Info) Description 07/19/2024 3:00 PM EDT Office Visit [place] [address] Mary Reyes, [place] [address] documented as of this encounter Visit Diagnoses Diagnosis Chronic heart failure with preserved ejection fraction Chest pain, unspecified type documented in this encounter Care Teams C D Area Supervisor Relationship Specialty Start Date End Date Polo Pearce PA [address] [place] [address] PCP - General Internal Medicine 06/09/21 documented as of this encounter
--- OUTSIDE RECORDS SUMMARY | 2024-04-10 17:10 | XMS_ITS | Encounter Summary ---
Author Organization [facility] [place] [address] Care Team Providers Care Back Hanger Name Role Phone Polo Pearce Primary Care Provider [phone] Reason for Visit * Consultation (Routine) - Closed Specialty Diagnoses / Procedures Referred By Jayant harris Referred To Contact Vascular Surgery Diagnoses Pulmonary embolism, unspecified chronicity, unspecified pulmonary embolism type, unspecified whether acute cor pulmonale present ROUTINE, RAMY ABBOTT DVT Vascular medicine PE clinic: seemingly unprovoked small PE. review consideration of hypercoagulability testing Jaspreet Kinsey MD [facility] [place] [address] Elvin Maya MD [address] [place] [address] Referral ID Status Reason Start Date Expiration Date V isits Requested Visits Authorized [id number] Closed Consult, Test & Treat 07/30/2022 07/30/2023 1 1 Encounter Details Date Type Department Care Team (Late st Contact Info) Description 10/20/2022 9:00 AM EDT Office Visit [place] [address] Umberto Abbott MD [facility] [place] [address] Pulmonary embolism, unspecified chronicity, unspecified pulmonary embolism [...] not included. [facility] [place] [address] VASCULAR MEDICINE CLINIC NOTE PRIMARY CARE PROVIDER: JOCY Franco REFERRING PROVIDER: Jaspreet Kinsey PROBLEM LIST: Patient Active Problem List Diagnosis Pulmonary embolus 07/2022: right upper lobe. Started on eliquis 08/2022 TTE ([facility]): normal bi-v s/f. 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 Kinsey, and he had uptitrated her [...] Vascular Clinic as needed. Sindhu Santo MD Floor Sander, PGY5 #[id number] Cardiovascular Medicine Attending I have [...] 3:00 PM EDT Office [place] [address] [place] [address] documented as of this encounter Visit Diagnoses Diagnosis Pulmonary embolism, unspecified chronicity, unspecified pulmonary embolism type, unspecified whether acute cor pulmonale present- Primary PAF (paroxysmal atrial fibrillation) Atrial fibrillation documented in this encounter Care Teams Back Hanger Relationship Specialty Start Date End Date Polo Pearce PA [address] [place] [address] PCP - General Internal Medicine 06/09/21 documented as of this encounter
--- OUTSIDE RECORDS SUMMARY | 2024-04-10 17:10 | XMS_ITS | Encounter Summary ---
[place] [address] Care Team Providers Care Strainer Mill Operator Name Role Phone Polo Pearce Primary Care Provider [phone] Reason for Visit * Auth/Cert (Routine) Specialty Diagnoses / Procedures Referred By Contac t Referred To Contact Diagnoses NSTEMI (non-ST elevated myocardial infarction) NSTEMI Procedures EMERGENCY MICHELLEI Willy Gómez MD [facility] [place] [address] [facility] Referral ID Status Reason Start Date Expiration Date Visits Re quested Visits Authorized [id number] 1 1 Encounter Details Date Type Department Care Team (Latest Contact Info) Description 09/27/2022 6:50 AM EDT - 09/27/2022 11:59 PM EDT Hospital Encounter [place] [address] Discharge Disposition: Home Social History Tobacco Use [...] as needed. fluticasone propionate (FLONASE) 50 mcg/actuation [place], Suspension 1 spray by Each Nare route [...] 3:00 PM EDT Office [place] [address] [place] [address] documented as of this encounter Procedures Procedure [...] mLs documented in this encounter Care Teams Strainer Mill Operator Relationship Specialty Start Date End Date Polo Pearce PA [address] [place] [address] PCP - General Internal Medicine 06/09/21 documented as of this encounter
--- OUTSIDE RECORDS SUMMARY | 2024-04-10 17:10 | XMS_ITS | Encounter Summary ---
Author Organization [facility] [place] [address] Care Team Providers Care Deicer Finisher Name Role Phone Polo Pearce Primary Care Provider [phone] Reason for Visit * Reason Onset Date Comments Results 08/17/2022 Encounter Details Date Type Department Care Team (Late st Contact Info) Description 08/17/2022 Telephone Cardiology at [address] [address] Jaspreet Kinsey MD [facility] [address] [place] [address] Results Social History Tobacco Use Types Packs/Day [...] 3:00 PM EDT Office Visit [place] [address] [place] [address] documented as of this encounter Visit Diagnoses Not on filedocumented in this encounter Care Teams Deicer Finisher Relationship Specialty Start Date End Date Polo Pearce PA [address] [facility] [place] [address] PCP - General Internal Medicine 06/09/21 documented as of this encounter
--- OUTSIDE RECORDS SUMMARY | 2024-04-10 17:10 | XMS_ITS | Encounter Summary ---
Author Organization [facility] [place] [address] Care Team Providers Care Metal Weather Stripper Name Role Phone Polo Pearce Primary Care Provider [phone] Encounter Details Date Type Department Care Team (Late st Contact Info) Description 07/29/2022 9:45 PM EDT Ancillary Procedure Radiology Library at [facility] [place] [phone] Marcia Kamara MD [facility] [place] [address] Social History Tobacco Use Types Packs/Day Years [...] 3:00 PM EDT Office Visit Gastroenterology at [facility] [place] [address] Mary Reyes APRN [facility] [place] [address] documented as of this encounter Procedures Procedure [...] Kamara MD IMG FILM LIBRARY ORD ERABLES [place] documented in this encounter Visit Diagnoses Not on filedocumented in this encounter Care Teams Metal Weather Stripper Relationship Specialty Start Date End Date Polo Pearce PA [address] [place] [address] PCP - General Internal Medicine 06/09/21 documented as of this encounter
--- OUTSIDE RECORDS SUMMARY | 2024-04-10 17:10 | XMS_ITS | Encounter Summary ---
Author Organization [facility] [place] [address] Care Team Providers Care [place]. Representative Name Role Phone Polo Pearce Primary Care Provider [phone] Encounter Details Date Type Department Care Team (Late st Contact Info) Description 10/20/2022 Telephone Cardiology at [address] [address] Jaspreet Kinsey MD [facility] [place] [address] Social History Tobacco Use Types Packs/Day Years [...] to update office that she was at [facility] this morning as a follow [...] 3:00 PM EDT Office [place] [address] Mary Reyes, FINANCIAL ADMINISTRATION [place] [address] documented as of this encounter Visit Diagnoses Not on filedocumented in this encounter Care Teams U.S. Representative Relationship Specialty Start Date End Date Polo Pearce PA [address] [address] PCP - General Internal Medicine 06/09/21 documented as of this encounter
--- OUTSIDE RECORDS SUMMARY | 2024-04-10 17:10 | XMS_ITS | Encounter Summary ---
[place] [address] Care Team Providers Care Blacksmith Supervisor Name Role Phone Polo Pearce Primary Care Provider [phone] Reason for Visit * Reason Comments Medication Refill Encounter Details Date Type Department Care Team (Late st Contact Info) Description 07/24/2022 Refill Cardiology at [address] [phone] Deja Zaidi PA [address] [address] Medication Refill Social History Tobacco Use Types [...] 3:00 PM EDT Office [place] [phone] Mary Reyes APRN [place], [place] [phone] documented as of this encounter Visit Diagnoses Diagnosis Chronic heart failure with preserved ejection fraction documented in this encounter Care Teams Blacksmith Supervisor Relationship Specialty Start Date End Date Polo Pearce PA [address] [place] [address] PCP - General Internal Medicine 06/09/21 documented as of this encounter
--- OUTSIDE RECORDS SUMMARY | 2024-04-10 17:10 | XMS_ITS | Encounter Summary ---
[place] [address] Care Team Providers Care Hot Strip Finisher Name Role Phone Polo Pearce Primary Care Provider [phone] Encounter Details Date Type Department Care Team (Late st Contact Info) Description 10/20/2022 8:00 AM EDT Tech [place] [address] Florencia Callahan [place] Pulmonary embolism, unspecified chronicity, [...] 3:00 PM EDT Office [place] [phone] [place] [address] documented as of this encounter Procedures Procedure [...] (Bezet) 525 ms MUSE SYSTEM Calculated R [place] 41 degrees MUSE SYSTEM Calculated T [place] 40 degrees MUSE SYSTEM INTERPRETATION Atrial fibrillation Nonspecific ST and T wave abnormality Prolonged QTc Abnormal ECG When compared with ECG of 08-OCT-2022 16:19, Atrial fibrillation has replaced Sinus rhythm Vent. rate has increased BY ??34 BPM Nonspecific T wave abnormality, improved in Inferior leads QT has lengthened I personally reviewed the tracing and edited the fellows interpretation Confirmed by fellow Otis Rader ([id number]) on 10/20/2022 3:03:05 PM Confirmed by MD Maxwell Hannah ([id number]) on 10/20/2022 7:08:19 PM MUSE SYSTEM 10/20/2022 10:0 3 AM EDT 10/20/2022 7:08 PM EDT Unknown ECG ORDERABLES MUSE SYSTEM * Duplex Study for DVT, Bilat legs (10/20/2022 8:06 AM EDT) VB Text Report Department: Vascular Surgery Lab Patient: [id number] (LOIDA ROQUE) CPT: 22975 Referring Physician: MAMIE MARX ?? Phone: Indications: [...] present documented in this encounter Care Teams Hot Strip Finisher Relationship Specialty Start Date End Date Polo Pearce PA [address] [place] [address] PCP - General Internal Medicine 06/09/21 documented as of this encounter
--- OUTSIDE RECORDS SUMMARY | 2024-04-10 17:10 | XMS_ITS | Encounter Summary ---
Author Organization [facility] [place] [address] Care Team Providers Care Neonatal Critical Care Nurse Name Role Phone Polo Pearce Primary Care Provider [phone] Encounter Details Date Type Department Care Team (Late st Contact Info) Description 02/08/2023 Telephone Cardiology at [address] [phone] Ericka Brenner PA [facility] [place] [address] Social History Tobacco Use Types Packs/Day Years [...] Provider: Dr. Iyer Patient Location: [facility] Brief History 52 year old female with [...] aortopathy. 4. No acute pulmonary findings. [facility] 08/2019: Conclusions: * Normal coronary arteries [facility] Interventions: Sl nitro Full dose ASA Assessment & Plan: 52 year old female with history of prior NSTEMI with normal coronaries 2019, recent coronary CTA with ca score 198), HTN, HLD, HFpEF, Afib (on Eliquis) who is presenting with chest pain. Has had similar presentation in 2019 with a [facility] demonstrating normal coronaries at that time. [...] as type 1 NSTEMI and [place] [facility] [place]. - agree with nitro gtt if not chest pain free - if persistent chest pain with nitro gtt would load Plavix 600mg - start IV heparin gtt 12 hours post last dose of Eliquis - BB as able, HI statin - [place] [facility] [place]23 Above recommendations were based on my discussion with Dr. Iyer; I have not personally interviewed or examined this patient. I encouraged them to contact us if there is any change in symptoms, decision- making, or further need for guidance in management. Ericka Brenner PA-C Access Pager [phone] 02/08/2023 documented in this encounter Plan of Treatment Upcoming Encounters Date Type Department Care Team (Late st Contact Info) Description 07/19/2024 3:00 PM EDT Office Visit [place] [phone] Mary Reyes, [place] [address] documented as of this encounter Visit Diagnoses Not on filedocumented in this encounter Care Teams Neonatal Critical Care Nurse Relationship Specialty Start Date End Date Polo Pearce PA [address] [place] [address] PCP - General Internal Medicine 06/09/21 documented as of this encounter
--- OUTSIDE RECORDS SUMMARY | 2024-04-10 17:10 | XMS_ITS | Encounter Summary ---
[place] [address] Care Team Providers Care Freight Representative Name Role Phone Polo Pearce Primary Care Provider [phone] Reason for Visit * Reason Onset Date Comments Follow-up 03/18/2022 Encounter Details Date Type Department Care Team (Late st Contact Info) Description 03/18/2022 Telephone Cardiology at [address] [phone] Mary Motta, RN Follow-up Social [...] Dr. Tovar Pt saw Dr. Kinsey (primary humanities instructor on 03/16) where pt was known to [...] 3:00 PM EDT Office Visit [place] [address] [place] [address] documented as of this encounter Visit Diagnoses Not on filedocumented in this encounter Care Teams Freight Representative Relationship Specialty Start Date End Date Polo Pearce PA [address] [place] [address] PCP - General Internal Medicine 06/09/21 documented as of this encounter
--- OUTSIDE RECORDS SUMMARY | 2024-04-10 17:10 | XMS_ITS | Encounter Summary ---
[place] [address] Care Team Providers Care Coroner Transport Technician Name Role Phone Polo Pearce Primary Care Provider [phone] Reason for Visit * Auth/Cert (Routine) Specialty Diagnoses / Procedures Referred By Contac t Referred To Contact Diagnoses NSTEMI (non-ST elevated myocardial infarction) NSTEMI Procedures EMERGENCY IPI Susannah Gómez MD [facility] [place] [address] [place] [address] [facility] Referral ID Status Reason Start Date Expiration Date Visits Re quested Visits Authorized [id number] 1 1 Encounter Details Date Type Department Care Team (Latest Contact Info) Description 09/26/2022 3:42 PM EDT - 09/28/2022 5:02 PM EDT Hospital Encounter Heart and Vascular Unit Level 4 [place] [id number] Susannah Gómez MD [facility] [place] [address] [place] [address] Non-ST elevation myocardial infarction (NSTEMI) [...] Discharge date and time: 09/28/2022 Attending Physician: uSsannah Gómez MD Code Status: Full Code Follow-up [...] to the point that she presented to [facility] at around 630 or 7 AM this morning. At OSH: Patient presented with soft blood pressures of 90s/50s which improved with fluids. Initial troponins above 800. EKG with sinus bradycardia with inferolateral ST segment depressions, possibly increased from prior. OSH provider loaded full dose aspirin and started therapeutic Lovenox prior to transfer. On presentation to [facility] patient notes some constant chest pain that is approx 5/10 in severity centered over left chest. She has no shortness of breath or PND. On a regular day patient could walk about 30 feet on a flat surface before becoming shortness of breath. 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 She is under a considerable amount of [...] days. Refills: 0 fluticasone propionate 50 mcg/actuation [place], Suspension Commonly known as: Flonase 1 spray [...] 4:00 PM Jaspreet Kinsey MD Cardiology at [place] Arrive at: [facility] [address] [phone] 10/20/2022 8:00 AM Florencia Callahan [place] Vascular Lab at [facility] Arrive at: [employer] [facility] [phone] 10/20/2022 9:00 AM Umberto Abbott MD Vascular Surgery at [facility] Arrive at: [employer] [facility] [phone] Provider Contact Information: JOCY [address] [facility] [id number] Discharge References/Attachments: Discharge References/Attachments None documented in [...] October 08, 2022 at 4:00 pm in [place]). MEDICATION INSTRUCTIONS: At discharge, START - amlodipine [...] as needed. fluticasone propionate (FLONASE) 50 mcg/actuation [place], Suspension 1 spray by Each Nare route [...] EDT CARDIOLOGY S2 Daily Progress Note Pager [phone] Admit Date: 09/26/2022 Encounter Date: September 27, [...] 29-35-30. Chest pain improved en route to [facility], some improvement with nitro. Overnight: No acute [...] to the point that she presented to [facility] at around 630 or 7 AM this morning. At OSH: Patient presented with soft blood pressures of 90s/50s which improved with fluids. Initial troponins above 800. EKG with sinus bradycardia with inferolateral ST segment depressions, possibly increased from prior. OSH provider loaded full dose aspirin and started therapeutic Lovenox prior to transfer. On presentation to [facility] patient notes some constant chest pain that is approx 5/10 in severity centered over left chest. She has no shortness of breath or PND. On a regular day patient could walk about 30 feet on a flat surface before becoming shortness of breath. 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 She is under a considerable amount of [...] 30 DAYS fluticasone propionate (FLONASE) 50 mcg/actuation [place], Suspension 1 spray, Each Nare, DAILY gabapentin [...] Medicine, PGY-1 Cardiology M1-S1, #3011 Cardiology M1-S2, #[id number] 09/26/2022, 6:07 PM Cardiology Staff Addendum Loida [...] COVID test: Lab Results Component Value Date [id number] Not Detected 06/13/2021 Present on Admission: NSTEMI (non-ST elevated myocardial infarction) Hospitalizations Within the Past 30 Days: no previous admission in last 30 days Patient receiving hospital care under Inpatient status. Admission order reviewed. Health/Prescription Coverage: Primary Insurance: [employer] [place] Payor: [employer] [place] / Plan: [place]ANGE / Product Type: *No Product type* / Secondary Insurance: N/A ; Prescription Coverage: Preferred Pharmacy: [id number] - [place], [place] - [address] [facility] [address] [facility] [address] [place], [place] - [address] [facility] [address] [facility] [address] Advance Care Planning: Attempt Cardiopulmonary Resuscitation - Inpatient <no information> - Current Functional Ability: Independent Functional Status Prior to Admission: Home Environment: . Current Living Arrangements: home/apartment/condo. Accessibility Concerns: . Current DME: [address] [facility] [address] Social & Family Supports: All names listed [...] private vehicle when medically ready. Registered Nurse Health Administration Teacher / Tech Ed Teacher will continue to follow patient???s progress and remain available if situation changes for coordination of care, psychosocial support and/or discharge planning. Office of Care Management Fab GALARZA, RN CM Case Management [phone] * Plan of Care - Antonio Swann [...] 3:00 PM EDT Office [place] [address] [place] [address] documented as of this encounter Procedures Procedure [...] EDT) pH, Venous 7.32 7.32 - 7.42 [facility] PCO2, Venous 45 41 - 51 mmHg [facility] PO2, Venous 30 25 - 40 mmHg [facility] Bicarbonate, Venous 22.8 mmol/L [facility] Base Excess, Venous -3.3 mmol/L [facility] Hgb Blood Gas 15.2 11.7 - 15.5 g/dL [facility] Oxyhemoglobin, Venous 52.4 % [facility] Carboxyhemoglob in, Venous 1.0 % [facility] Comment: Nonsmokers: 0.5-1.5% COHB Smokers: Variable, but usually less than 10% Toxic: 20-30% COHB Lethal: Greater than 60% COHB Methemoglobin, Venous 0.3 <=1.5 % [facility] Na Whole Blood 139 135 - 145 mmol/L [facility] K Whole Blood 4.6 3.5 - 5.0 mmol/L [facility] Comment: Please note: Patients with WBC >100,000 may have falsely elevated Potassium levels. Contact the Clinical Chemistry Laboratory if there are any questions. ICa Whole Blood 1.23 1.15 - 1.33 mmol/L [facility] Comment: Note: ??Total bilirubin higher than 20 mg/dL may lead to falsely low ionized calcium. CL Whole Blood 104 98 - 107 mmol/L [facility] Gluc Whole Bld 87 65 - 199 mg/dL [facility] Comment:Diabetes: >=200 mg/d L plus symptoms Lactate WB 1.3 0.5 - 2.2 mmol/L [facility] Blood Gas Source Venous [facility] Blood Venous Draw / Unknown 09/28/2022 3:39 PM EDT 09/28/2022 3:50 PM EDT Narrative Resulting Agency Comment Spec In Lab Ciro Lovell MD CHEMISTRY ORDERABLES [facility] [place] [address] * EKG 12 Lead (09/28/2022 1:58 PM EDT) Ventricular rate 57 BPM MUSE SYSTEM Atrial Rate 57 BPM MUSE SYSTEM P-R Interval 180 ms MUSE SYSTEM QRS Duration 86 ms MUSE SYSTEM Q-T Interval 414 ms MUSE SYSTEM QTC Calculated (Bezet) 402 ms MUSE SYSTEM Calculated P [place] 40 degrees MUSE SYSTEM Calculated R [place] 67 degrees MUSE SYSTEM Calculated T [place] -56 degrees MUSE SYSTEM INTERPRETATION Sinus bradycardia [...] questions please contact the health career development counselor that requested your imaging first. ? Electronically signed by: Jose Gallegos MD, [facility] ([phone]), at 09/28/2022 4:58 PM Narrative 09/28/2022 4:58 [...] have questions please contactthe health career development counselor that requested your imaging first. Electronically signed by: Jose Gallegos MD, [facility]([phone]), at 09/28/2022 4:58 PM Susannah Gómez MD IM CT ORDERABLES * (ABNORMAL) Troponin (09/28/2022 6:56 AM EDT) [facility] Signature Troponin-T, High Sensitivity 21(H) <=14 ng/L [facility] Comment: This patient's troponin T concentration [...] [facility] Laboratory Test Catalog Reference: Fourth Mitchell Definition of Myocardial Infarction. Journal of the [place] College of [employer] 2018;72:4856-6948 Blood 09/28/2022 6:56 AM EDT 09/28/2022 7:01 AM EDT Narrative Resulting Agency Comment Spec In Lab Susannah Gómez MD CHEMISTRY ORDERABLES Performing Organization Address City/State/[facility] Co de Phone Number [facility] [place] [address] * Differential, Automated (09/28/2022 3:49 AM EDT) Neutrophil % 45.9 % [facility] Neutrophil Absolute 2.92 1.70 - 6.10 x10(3)/[facility] Lymph % 40.5 % [facility] Lymphocytes Abs 2.6 0.9 - 3.2 x10(3)/[facility] Monocyte % 8.9 % [facility] Monocyte Abs 0.6 0.3 - 0.9 x10(3)/[facility] Eos % 3.3 % [facility] Eosinophils Abs 0.2 0.0 - 0.4 x10(3)/[facility] Basophil % 1.1 % [facility] Baso Absolute 0.1 0.0 - 0.1 x10(3)/[facility] Immature Gran % 0.30 % [facility] Comment: Immature granulocytes(IG's)percentage and absolute count will include metamyelocytes, myelocytes, and promyelocytes. Blood smears from CBCs yielding IG's will be scanned manually for concordance. If this scan disagrees with the automated IG or if promyelocytes are noted, a manual differential will be performed. Immature Gran Absolute 0.02 0.00 - 0.04 x10(3)/[facility] Blood 09/28/2022 3:49 AM EDT 09/28/2022 4:11 AM EDT Narrative Resulting Agency Comment Spec In Lab Vimal Holman MD HEMATOLOGY ORDERABLE S [facility] [place] [address] * (ABNORMAL) Hemogram (09/28/2022 3:49 AM EDT) [facility] White Blood Cell 6.4 4.0 - 9.5 x10(3)/mc L [facility] Red Blood Cell 4.37 4.00 - 5.21 x10(6)/mc L [facility] Hemoglobin 13.7 11.7 - 15.5 g/dL [facility] Hematocrit 41.6 35.7 - 45.8 % [facility] Mean Cell Volume 95.2(H) 82.6 - 94.4 fL [facility] Mean Cell Hemoglobin 31.4 27.1 - 32.0 pg [facility] Mean Cell Hemoglobin Concentration 32.9 31.7 - 35.0 g/dL [facility] Platelet 224 145 - 357 x10(3)/mc L [facility] RDW Standard Deviation 43.1 37.0 - 46.0 fL [facility] RDW coefficient of variation 12.3 11.5 - 14.1 % [facility] Mean Platelet Volume 11.3 7.6 - 12.9 fL [facility] NRBC% auto 0.0 % [facility] NRBC Absolute 0.000 0.000 - 0.000 x10(3)/mc L [facility] Blood 09/28/2022 3:49 AM EDT 09/28/2022 4:11 AM EDT Narrative Resulting Agency Comment Spec In Lab Vimal Holman MD HEMATOLOGY ORDERABLE S [facility] [place] [address] * (ABNORMAL) Troponin (09/28/2022 3:49 AM EDT) [facility] Troponin-T, High Sensitivity 25(H) <=14 ng/L [facility] Comment: This patient's troponin T concentration [...] [facility] Test Catalog Reference: Fourth Mitchell Definition of Myocardial Infarction. Journal of the [place] College of [employer]iology 2018;72:1153-1201 Blood 09/28/2022 3:49 AM EDT 09/28/2022 4:11 AM EDT Narrative Resulting Agency Comment Spec In Lab Susannah Gómez MD CHEMISTRY ORDERABLES Performing Organization Address City/State/[facility] Co de Phone Number [facility] [place] [address] * (ABNORMAL) Basic Metabolic Panel (non-fasting) (09/28/2022 3:49 AM EDT) Pathologist [facility] Glucose 97 65 - 199 mg/dL [facility] Comment:Diabetes: >=200 mg/d L plus symptoms Blood Urea Nitrogen 26(H) 8 - 18 mg/dL [facility] Creatinine 1.01 0.70 - 1.20 mg/dL [facility] Sodium 137 135 - 145 mmol/L [facility] Potassium 4.4 3.5 - 5.0 mmol/L [facility] Comment: Please note: ??Patients with WBC >100,000 may have falsely elevated Potassium levels. ??For accurate Potassium quantification in these patients send serum separator tube (gold top) for subsequent determinations. ??Contact the Clinical Chemistry Laboratory if there are any questions. Chloride 108(H) 98 - 107 mmol/L [facility] Carbon Dioxide 18(L) 22 - 31 mmol/L [facility] Anion Gap 11 5 - 15 mmol/L [facility] Calcium 9.0 8.5 - 10.5 mg/dL [facility] Est Glomerular Filtration Rate 67 >=60 mL/min/1. 73 m?? [facility] Comment: This patient's estimated GFR was [...] In Lab Susannah Gómez MD CHEMISTRY ORDERABLES [facility] [place] [address] * XR Chest One View (09/28/2022 3:37 [...] questions please contact the health career development counselor that requested your imaging first. ? Electronically signed by: Elina Valdez MD, [facility] ??([phone]), at 09/28/2022 8:27 AM Narrative 09/28/2022 8:27 [...] have questions please contactthe health career development counselor that requested your imaging first. Electronically signed by: Elina Valdez MD, [facility]([phone]), at 09/28/2022 8:27 AM Susannah Gómez MD IMG DX ORDERABLES * EKG 12 Lead (09/28/2022 3:11 AM EDT) Ventricular rate 45 BPM MUSE SYSTEM Atrial Rate 45 BPM MUSE SYSTEM P-R Interval 196 ms MUSE SYSTEM QRS Duration 90 ms MUSE SYSTEM Q-T Interval 554 ms MUSE SYSTEM QTC Calculated (Bezet) 479 ms MUSE SYSTEM Calculated P [place] 33 degrees MUSE SYSTEM Calculated R [place] 28 degrees MUSE SYSTEM Calculated T [place] 58 degrees MUSE SYSTEM INTERPRETATION Sinus bradycardia Nonspecific ST and T wave abnormality Abnormal ECG When compared with ECG of 26-SEP-2022 17:33, QT has lengthened Confirmed by fellow Vaishnavi Pratt ([id number]) on 09/28/2022 9:30:13 AM Confirmed by MD [...] 1970 ? Height: 163 cm ? Account: [id number] Age: 52 yrs ? Weight: 102 kg Gender: Female ?BSA: 2.1 m2 Ordering Physician: SUSANNAH GÓMEZ Referring Physician: SUSANNAH GÓMEZ Performed By: HAIM Arnold Reason For Study: NSTEMI Exam Location: [facility]. Interpretation Summary - Left ventricular systolic [...] 12/31/21, there is no significant change. Procedure Complete-[id number]. Image enhancement Optison was used for left [...] Location: : 1970 Height: 163 cm Account: [id number] Age: 52 yrs Weight: 102 kg Gender: Female BSA: 2.1 m2 Ordering Physician: SUSANNAH GÓMEZ Referring Physician: SUSANNAH GÓMEZ Performed By: HAIM Arnold Reason For Study: NSTEMI Exam Location: [facility]. Interpretation Summary - Left ventricular systolic [...] on 12/31/21, there is nosignificant change. Procedure Complete-[id number]. Image enhancement Optison was used for left [...] 3:07 AM EDT) Neutrophil % 49.4 % [facility] Neutrophil Absolute 3.02 1.70 - 6.10 x10(3)/[facility] Lymph % 36.4 % [facility] Lymphocytes Abs 2.2 0.9 - 3.2 x10(3)/[facility] Monocyte % 10.3 % [facility] Monocyte Abs 0.6 0.3 - 0.9 x10(3)/[facility] Eos % 3.0 % [facility] Eosinophils Abs 0.2 0.0 - 0.4 x10(3)/[facility] Basophil % 0.7 % [facility] Baso Absolute 0.0 0.0 - 0.1 x10(3)/[facility] Immature Gran % 0.20 % [facility] Comment: Immature granulocytes(IG's)percentage and absolute count will include metamyelocytes, myelocytes, and promyelocytes. Blood smears from CBCs yielding IG's will be scanned manually for concordance. If this scan disagrees with the automated IG or if promyelocytes are noted, a manual differential will be performed. Immature Gran Absolute 0.01 0.00 - 0.04 x10(3)/[facility] Blood 09/27/2022 3:07 AM EDT 09/27/2022 3:18 AM EDT Narrative Resulting Agency Comment Spec In Lab Vimal Holman MD HEMATOLOGY ORDERABLE S [facility] [place] [address] * (ABNORMAL) Hemogram (09/27/2022 3:07 AM EDT) Pathologist [facility] White Blood Cell 6.1 4.0 - 9.5 x10(3)/mc L [facility] Red Blood Cell 4.20 4.00 - 5.21 x10(6)/mc L [facility] Hemoglobin 13.3 11.7 - 15.5 g/dL [facility] Hematocrit 40.9 35.7 - 45.8 % [facility] Mean Cell Volume 97.4(H) 82.6 - 94.4 fL [facility] Mean Cell Hemoglobin 31.7 27.1 - 32.0 pg [facility] Mean Cell Hemoglobin Concentration 32.5 31.7 - 35.0 g/dL [facility] Platelet 223 145 - 357 x10(3)/mc L [facility] RDW Standard Deviation 45.0 37.0 - 46.0 fL [facility] RDW coefficient of variation 12.7 11.5 - 14.1 % [facility] Mean Platelet Volume 10.5 7.6 - 12.9 fL [facility] NRBC% auto 0.0 % [facility] NRBC Absolute 0.000 0.000 - 0.000 x10(3)/mc L [facility] Blood 09/27/2022 3:07 AM EDT 09/27/2022 3:18 AM EDT Narrative Resulting Agency Comment Spec In Lab Vimal Holman MD HEMATOLOGY ORDERABLE S [facility] [place] [address] * (ABNORMAL) Troponin (09/27/2022 3:07 AM EDT) [facility] Troponin-T, High Sensitivity 30(H) <=14 ng/L [facility] Comment: This patient's troponin T concentration [...] [facility] Test Catalog Reference: Fourth Mitchell Definition of Myocardial Infarction. Journal of the [place] College [employer]iology 2018;72:8199-5013 Blood 09/27/2022 3:07 AM EDT 09/27/2022 3:18 AM EDT Narrative Resulting Agency Comment Spec In Lab Susannah Gómez MD CHEMISTRY ORDERABLES [facility] [place] [address] * (ABNORMAL) Basic Metabolic Panel (non-fasting) (09/27/2022 3:07 AM EDT) Pathologist [facility] Glucose 88 65 - 199 mg/dL [facility] Comment:Diabetes: >=200 mg/d L plus symptoms Blood Urea Nitrogen 31(H) 8 - 18 mg/dL [facility] Creatinine 1.19 0.70 - 1.20 mg/dL [facility] Sodium 138 135 - 145 mmol/L [facility] Potassium 4.3 3.5 - 5.0 mmol/L [facility] Comment: Please note: ??Patients with WBC >100,000 may have falsely elevated Potassium levels. ??For accurate Potassium quantification in these patients send serum separator tube (gold top) for subsequent determinations. ??Contact the Clinical Chemistry Laboratory if there are any questions. Chloride 108(H) 98 - 107 mmol/L [facility] Carbon Dioxide 18(L) 22 - 31 mmol/L [facility] Anion Gap 12 5 - 15 mmol/L [facility] Calcium 8.9 8.5 - 10.5 mg/dL [facility] Est Glomerular Filtration Rate 55(L) >=60 mL/min/1. 73 m?? [facility] Comment: This patient's estimated GFR was [...] In Lab Susannah Gómez MD CHEMISTRY ORDERABLES [facility] [place] [address] * Hemoglobin A1c (09/27/2022 3:07 AM EDT) Hemoglobin A1c 5.6 4.3 - 5.6 % [facility] Comment: Reference Range: 4.3 - 5.6% [...] Mellitus, Diabetes Care 2013; 36: Suppl. 1, M51-99 Estimated Average Glucose 114 mg/dL [facility] Comment: eAG equivalents for HbA1c percentages: [...] into estimated average glucose values. ??Diabetes Care 2008:31(8):6747-3337. Blood 09/27/2022 3:07 AM EDT 09/27/2022 3:18 AM EDT Narrative Resulting Agency Comment Spec In Lab Susannah Gómez MD CHEMISTRY ORDERABLES [facility] [place] [address] * Lipid Panel (Reflex Direct LDL) (09/27/2022 3:07 AM EDT) Cholesterol, Total 228 mg/dL [facility] Comment: Lower Risk: <200 mg/dL Average Risk: 200-239 mg/dL Higher Risk: >yj=658 mg/dL Triglyceride 221 mg/dL [facility] Comment: Average Risk/Lower Risk: <150 mg/dL Borderline High Risk: 150-199 mg/dL High Risk: 200-499 mg/dL Very High Risk: >at=770 mg/dL HDL Cholesterol 33 mg/dL [facility] Comment: Males: ?? Higher Risk: <40 mg/dL Females: ?? Higher Risk: <50 mg/dL LDL Cholesterol 151 mg/dL [facility] Comment: Lowest Risk: <100 mg/dL Lower Risk: 100-129 mg/dL Borderline High Risk: 130-159 mg/dL High Risk: 160-189 mg/dL Very High Risk: >ir=951 mg/dL Cholesterol/HDL Ratio 6.9 ratio [facility] Lipid Interpretation See Note [facility] Comment: Lipid management should be guided by a patient? s ASCVD risk, goals and preferences. ACC/AHA Guidelines recommend high intensity statin if clinical ASCVD or LDL greater than or equal to 190 mg/dL. http://[place].AngleWare/LDV-AOO-Glifgqayk Adults aged 40-75 with LDL 70-189 mg/dL should have their 10 year ASCVD risk estimated with the ACC/AHA ASCVD risk score caller http://tools.acc.org/XFEMP-Fsut-Yfpwaqgfl/ Statin should be discussed if risk greater [...] Gómez MD CHEMISTRY ORDERABLES Performing Organization Address City/State/[facility] Co de Phone Number [facility] [place] [address] * (ABNORMAL) Troponin (09/26/2022 8:55 PM EDT) Troponin-T, High Sensitivity 35(H) <=14 ng/L [facility] [facility] Comment: This patient's troponin T concentration [...] [facility] Test Catalog Reference: Fourth Mitchell Definition of Myocardial Infarction. Journal of the [place] [employer] 2018;72:0924-7992 Blood 09/26/2022 8:55 PM EDT 09/26/2022 8:59 PM EDT Narrative Resulting Agency Comment Spec In Lab Susannah Gómez MD CHEMISTRY ORDERABLES Performing Organization Address City/[facility]/ZIP Co de Phone Number [facility] [place] [address] * Gold Tube HOLD (09/26/2022 5:50 PM EDT) Gold Hold Sample in lab. [facility] Blood Venous Draw / Unknown 09/26/2022 5:50 PM EDT 09/26/2022 6:13 PM EDT Vimal Holman MD CHEMISTRY ORDERABLES [facility] [place] [address] * Differential, Automated (09/26/2022 5:50 PM EDT) Neutrophil % 53.9 % [facility] Neutrophil Absolute 2.93 1.70 - 6.10 x10(3)/[facility] HOSPITAL LAB[facility] Lymph % 34.3 % [facility] Lymphocytes Abs 1.9 0.9 - 3.2 x10(3)/[facility] LABORAT[facility] Monocyte % 8.3 % [facility] Monocyte Abs 0.4 0.3 - 0.9 x10(3)/[facility]ORAT[facility] Eos % 2.4 % [facility] Eosinophils Abs 0.1 0.0 - 0.4 x10(3)/[facility] LABORATORY Basophil % 0.7 % [facility] Baso Absolute 0.0 0.0 - 0.1 x10(3)/[facility] LABORATORY Immature Gran % 0.40 % [facility] Comment: Immature granulocytes(IG's)percentage and absolute count will include metamyelocytes, myelocytes, and promyelocytes. Blood smears from CBCs yielding IG's will be scanned manually for concordance. If this scan disagrees with the automated IG or if promyelocytes are noted, a manual differential will be performed. Immature Gran Absolute 0.02 0.00 - 0.04 x10(3)/[facility] Blood 09/26/2022 5:50 PM EDT 09/26/2022 6:12 PM EDT Narrative Resulting Agency Comment Spec In Lab Vimal Holman MD HEMATOLOGY ORDERABLE S Performing Organization Address City/State/[facility] Co de Phone Number [facility] [place] [address] * Hemogram (09/26/2022 5:50 PM EDT) White Blood Cell 5.4 4.0 - 9.5 x10(3)/[facility] LAB[facility]AT[facility] Red Blood Cell 4.58 4.00 - 5.21 x10(6)/[facility] Hemoglobin 14.5 11.7 - 15.5 g/dL [facility] Hematocrit 42.4 35.7 - 45.8 % [facility] Mean Cell Volume 92.6 82.6 - 94.4 fL [facility] Mean Cell Hemoglobin 31.7 27.1 - 32.0 pg [facility] Mean Cell Hemoglobin Concentration 34.2 31.7 - 35.0 g/dL [facility] Platelet 182 145 - 357 x10(3)/[facility] LABORATORY RDW Standard Deviation 43.2 37.0 - 46.0 fL [facility] RDW coefficient of variation 12.6 11.5 - 14.1 % [facility] Mean Platelet Volume 11.3 7.6 - 12.9 fL [facility] NRBC% auto 0.0 % [facility] IT[facility] NRBC Absolute 0.000 0.000 - 0.000 x10(3)/mcL [facility] Blood 09/26/2022 5:50 PM EDT 09/26/2022 6:12 PM EDT Narrative Resulting Agency Comment Spec In Lab Vimal Holman MD HEMATOLOGY ORDERABLE S [facility] [place] [address] * (ABNORMAL) Basic Metabolic Panel (non-fasting) (09/26/2022 5:50 PM EDT) Glucose 81 65 - 199 mg/dL [facility] Comment:Diabetes: >=200 mg/d L plus symptoms Blood Urea Nitrogen 28(H) 8 - 18 mg/dL [facility] Creatinine 1.02 0.70 - 1.20 mg/dL [facility] Sodium 140 135 - 145 mmol/L [facility] Potassium 4.2 3.5 - 5.0 mmol/L [facility] Comment: Please note: ??Patients with WBC >100,000 may have falsely elevated Potassium levels. ??For accurate Potassium quantification in these patients send serum separator tube (gold top) for subsequent determinations. ??Contact the Clinical Chemistry Laboratory if there are any questions. Chloride 108(H) 98 - 107 mmol/L [facility] Carbon Dioxide 19(L) 22 - 31 mmol/L [facility] Anion Gap 13 5 - 15 mmol/L [facility] Calcium 9.0 8.5 - 10.5 mg/dL [facility] Est Glomerular Filtration Rate 66 >=60 mL/min/1. 73 m?? [facility] Comment: This patient's estimated GFR was [...] In Lab Susannah Gómez MD CHEMISTRY ORDERABLES [facility] [place] [address] * Magnesium (09/26/2022 5:50 PM EDT) Magnesium 0.89 0.69 - 1.07 mmol/L [facility] Blood 09/26/2022 5:50 PM EDT 09/26/2022 6:12 PM EDT Narrative Resulting Agency Comment Spec In Lab Susannah Gómez MD CHEMISTRY ORDERABLES Performing Organization Address [facility] Co de Phone Number [facility] [place] [address] * Calcium (09/26/2022 5:50 PM EDT) Calcium 9.0 8.5 - 10.5 mg/dL [facility] Blood 09/26/2022 5:50 PM EDT 09/26/2022 6:12 PM EDT Narrative Resulting Agency Comment Spec In Lab Susannah Gómez MD CHEMISTRY ORDERABLES Performing Organization Address City/[facility] Co de Phone Number [facility] [place] [address] * (ABNORMAL) Prothrombin Time (09/26/2022 5:50 PM EDT) Prothrombin Time 14.3(H) 9.4 - 12.5 sec [facility] International Normalization Ratio 1.3 [facility] Comment: An INR <2.0 indicates adequate [...] HEMATOLOGY ORDERABLE S Performing Organization Address City/[facility]/ZIP Co de Phone Number [facility] [place] [address] * (ABNORMAL) APTT (09/26/2022 5:50 PM EDT) Partial Thromboplastin Time 39(H) 25 - 37 sec [facility] Comment: The PTT is NOT appropriate for heparin monitoring. Use the Anti-Xa level for heparin monitoring (HEP UFH) or LMWH monitoring (HEP LMW). A PTT less than 37 seconds generally indicates adequate hemostasis. Blood 09/26/2022 5:50 PM EDT 09/26/2022 6:12 PM EDT Narrative Resulting Agency Comment Spec In Lab Susannah Gómez MD HEMATOLOGY ORDERABLE S Performing Organization Address [facility]/ZIP Co de Phone Number [facility] [place] [address] * (ABNORMAL) pro-Brain Natriuretic Peptide (09/26/2022 5:50 PM EDT) NT-proBNP 1,069(H) <=124 pg/mL [facility] Blood 09/26/2022 5:50 PM EDT 09/26/2022 6:12 PM EDT Narrative Resulting Agency Comment Spec In Lab Susannah Gómez MD CHEMISTRY ORDERABLES Performing Organization Address City/[facility]/ZIP Co de Phone Number [facility] [place] [address] * TSH (09/26/2022 5:50 PM EDT) Thyroid Stimulating Hormone 3.02 0.27 - 4.20 mcIU/mL [facility] Comment: Reference Interval (mcIU/mL): Females: ??First Trimester: 0.23-3.88 ??Second Trimester: 0.22-3.90 ??Third Trimester: 0.44-4.66 Blood 09/26/2022 5:50 PM EDT 09/26/2022 6:12 PM EDT Narrative Resulting Agency Comment Spec In Lab Susannah Gómez MD CHEMISTRY ORDERABLES [facility] [place] [address] * EKG 12 Lead (09/26/2022 5:33 PM EDT) Ventricular rate 54 BPM MUSE SYSTEM Atrial Rate 54 BPM MUSE SYSTEM P-R Interval 180 ms MUSE SYSTEM QRS Duration 84 ms MUSE SYSTEM Q-T Interval 438 ms MUSE SYSTEM QTC Calculated (Bezet) 415 ms MUSE SYSTEM Calculated P [place] 20 degrees MUSE SYSTEM Calculated R [place] 21 degrees MUSE SYSTEM Calculated T [place] -28 degrees MUSE SYSTEM INTERPRETATION Sinus bradycardia [...] PM EDT) C-Reactive Protein <3.0 <=4.9 mg/L [facility] Blood Venous Draw / Unknown 09/26/2022 5:01 PM EDT 09/26/2022 5:33 PM EDT Narrative Resulting Agency Comment Spec In Lab Paulo Ramachandran Jr., MD CHEMISTRY ORDE KRIS Performing Organization Address City/[facility]/ZIP Co de Phone Number [facility] [place] [address] * (ABNORMAL) Troponin (09/26/2022 5:01 PM EDT) Troponin-T, High Sensitivity 29(H) <=14 ng/L [facility] Comment: This patient's troponin T concentration [...] [facility] Test Catalog Reference: Fourth Mitchell Definition of Myocardial Infarction. Journal of the [place] [employer] 2018;72:9654-2592 Blood 09/26/2022 5:01 PM EDT 09/26/2022 5:12 PM EDT Narrative Resulting Agency Comment Spec In Lab Susannah Gómez MD CHEMISTRY ORDERABLES Performing Organization Address City/[facility]/ZIP Co de Phone Number [facility] [place] [address] documented in this encounter Visit Diagnoses Diagnosis [...] Routine documented in this encounter Care Teams Coroner Transport Technician Relationship Specialty Start Date End Date Polo Pearce PA [address] [place] [address] PCP - General Internal Medicine 06/09/21 documented as of this encounter
--- OUTSIDE RECORDS SUMMARY | 2024-04-10 17:10 | XMS_ITS | Encounter Summary ---
Author Organization [facility] [place] [address] Care Team Providers Care Associate Professor Of Anthropology Name Role Phone Polo Pearce Primary Care Provider [phone] Reason for Visit * Reason Comments Congestive Heart Failure HFpEF Atrial Fibrillation Encounter Details Date Type Department Care Team (Late st Contact Info) Description 11/17/2022 9:00 AM EDT Office Visit Cardiology at [address] [address] Jaspreet Kinsey MD [facility] [place] [address] Paroxysmal atrial fibrillation; Heart failure with preserved [...] In the interim, she was seen at [facility] vascular [facility] and whilst having an episode [...] 30 DAYS fluticasone propionate (FLONASE) 50 mcg/actuation [place], Suspension 1 spray, Each Nare, DAILY gabapentin [...] upper lobe. Started on eliquis 08/2022 TTE ([facility]): normal bi-v s/f. No significant VHD (HFpEF) heart failure with preserved ejection fraction 05/2021: subacute, presented to [facility] with RUQ pain, weight gain, [...] 3:00 PM EDT Office [place] [address] [place] [address] documented as of this encounter Visit Diagnoses Diagnosis Paroxysmal atrial fibrillation Atrial fibrillation Heart failure with preserved ejection fraction, unspecified HF chronicity Pulmonary embolism without acute cor pulmonale, unspecified chronicity, unspecified pulmonary embolism type Chronic heart failure with preserved ejection fraction documented in this encounter Care Teams Associate Professor Of Anthropology Relationship Specialty Start Date End Date Polo Pearce PA [address] [place] [address] PCP - General Internal Medicine 06/09/21 documented as of this encounter
--- OUTSIDE RECORDS SUMMARY | 2024-04-10 17:10 | XMS_ITS | Encounter Summary ---
Author Organization [facility] [place] [place] [address] Care Team Providers Care Shooter'S Helper Name Role Phone Polo Pearce Primary Care Provider [phone] Encounter Details Date Type Department Care Team (Late st Contact Info) Description 06/24/2022 Telephone Cardiology at [address] [address] Jaspreet Kinsey MD [facility] [place] [address] Social History Tobacco Use Types Packs/Day Years [...] Aide Glass - 06/30/2022 11:54 AM EDT [facility] is faxing over her ER visits since [...] Best # to reach her is work [phone] documented in this encounter Plan of Treatment Upcoming Encounters Date Type Department Care Team (Late Contact Info) Description 07/19/2024 3:00 PM EDT Office [place] [address] Mary Reyes, [place] [address] documented as of this encounter Visit Diagnoses Not on filedocumented in this encounter Care Teams Shooter'S Helper Relationship Specialty Start Date End Date Polo Pearce PA [address] [address] PCP - General Internal Medicine 06/09/21 documented as of this encounter
--- OUTSIDE RECORDS SUMMARY | 2024-04-10 17:10 | XMS_ITS | Encounter Summary ---
Author Organization [facility] [place] [address] Care Team Providers Care Dog Control Officer Name Role Phone Polo Pearce Primary Care Provider [phone] Encounter Details Date Type Department Care Team (Late st Contact Info) Description 07/07/2022 Telephone Cardiology at [address] [address] Jaspreet Kinsey MD [facility] [place] [address] Social History Tobacco Use Types Packs/Day Years [...] 3:00 PM EDT Office [place] [address] Mary Reyes, [place] [address] documented as of this encounter Visit Diagnoses Not on filedocumented in this encounter Care Teams Dog Control Officer Relationship Specialty Start Date End Date Polo Pearce PA [address] [facility] [address] [place] [address] PCP - General Internal Medicine 06/09/21 documented as of this encounter
--- OUTSIDE RECORDS SUMMARY | 2024-04-10 17:10 | XMS_ITS | Encounter Summary ---
Author Organization [facility] [place] [address] Care Team Providers Care Senior Hris Analyst Name Role Phone Polo Pearce Primary Care Provider [phone] Encounter Details Date Type Department Care Team (Late st Contact Info) Description 03/17/2022 Telephone Cardiology at [address] [address] [facility] [place] [address] Social History Tobacco Use Types Packs/Day Years [...] the new one. Please call her @ [phone]. documented in this encounter Plan of Treatment Upcoming Encounters Date Type Department Care Team (Late st Contact Info) Description 07/19/2024 3:00 PM EDT Office Visit [place] [address] [place] [address] documented as of this encounter Visit Diagnoses Not on filedocumented in this encounter Care Teams Senior Hris Analyst Relationship Specialty Start Date End Date Polo Pearce PA [address] [address] PCP - General Internal Medicine 06/09/21 documented as of this encounter
--- OUTSIDE RECORDS SUMMARY | 2024-04-10 17:10 | XMS_ITS | Encounter Summary ---
[place] [address] Care Team Providers Care Hot Knife Cutter Name Role Phone Polo Pearce Primary Care Provider [phone] Encounter Details Date Type Department Care Team (Late st Contact Info) Description 10/20/2022 Telephone Cardiology at [address] [address] Gianna Day, RN Social History [...] 3:00 PM EDT Office [place] [address] [place] [address] documented as of this encounter Visit Diagnoses Not on filedocumented in this encounter Care Teams Hot Knife Cutter Relationship Specialty Start Date End Date Polo Pearce PA [address] [place] [address] PCP - General Internal Medicine 06/09/21 documented as of this encounter
--- OUTSIDE RECORDS SUMMARY | 2024-04-10 17:10 | XMS_ITS | Encounter Summary ---
Author Organization [facility] [place] [address] Care Team Providers Care Awnings Mechanic Name Role Phone Polo Pearce Primary Care Provider [phone] Encounter Details Date Type Department Care Team (Late st Contact Info) Description 09/26/2022 Telephone [place] [address] Paulo Ramachandran Jr., MD [facility] [place] [address] Social History Tobacco Use Types Packs/Day Years [...] vasospasm rather than a true Type I PR, however, given degree of troponin rise and [...] 3:00 PM EDT Office [place] [address] Mary [place] [address] documented as of this encounter Visit Diagnoses Not on filedocumented in this encounter Care Teams Awnings Mechanic Relationship Specialty Start Date End Date Polo Pearce PA [address] [place] [address] PCP - General Internal Medicine 06/09/21 documented as of this encounter
--- OUTSIDE RECORDS SUMMARY | 2024-04-10 17:10 | XMS_ITS | Encounter Summary ---
Author Organization [facility] [place] [address] Care Team Providers Care Breaking Machine Operator Name Role Phone Polo Pearce Primary Care Provider [phone] Encounter Details Date Type Department Care Team (Late st Contact Info) Description 02/08/2023 External Results [place] [address] Social History Tobacco Use Types Packs/Day Years [...] Office [place] [address] [place] [address] documented as of this encounter Procedures Procedure Name Priority Date/Time Associated Diagnosis Comments ECG SCAN Routine 02/08/2023 3:27 PM EST documented in this encounter Results * Scan Doc: ECG (02/08/2023 3:27 PM EST) Historical Provider MD FLEMING MGR SCAN EX T ORDR/RSLT documented in this encounter Visit Diagnoses Not on filedocumented in this encounter Care Teams Breaking Machine Operator Relationship Specialty Start Date End Date Polo Pearce PA [address] [place] [address] PCP - General Internal Medicine 06/09/21 documented as of this encounter
--- OUTSIDE RECORDS SUMMARY | 2024-04-10 17:10 | XMS_ITS | Encounter Summary ---
[place] [address] Care Team Providers Care Administrative Coordinator Name Role Phone Polo Pearce Primary Care Provider [phone] Reason for Referral * Diagnostic Test (Routine) - Closed Specialty Diagnoses / Procedures Referred By Contac t Referred To Contact Diagnoses Pulmonary embolism, unspecified chronicity, unspecified pulmonary embolism type, unspecified whether acute cor pulmonale present Procedures Duplex Study for DVT, Bilat legs Mamie Marx APRN [facility] [place] [address] [facility] [address] [address] Referral ID Status Reason Start Date Expiration Date V isits Requested Visits Authorized [id number] Closed Specialty Service Requested 07/31/2022 07/31/2023 1 1 Encounter Details Date Type Department Care Team (Late st Contact Info) Description 07/31/2022 Orders [place] [address] Mamie Marx APRN [facility] [place] [address] Pulmonary embolism, unspecified chronicity, unspecified [...] 3:00 PM EDT Office [place] [address] [place] [address] documented as of this encounter Results * Duplex Study for DVT, Bilat legs (10/20/2022 8:06 AM EDT) VB Text Report Department: Vascular Surgery Lab Patient: [id number] (LOIDA ROQUE) CPT: [id number] Referring Physician: MAMIE MARX ?? Phone: Indications: [...] present documented in this encounter Care Teams Administrative Coordinator Relationship Specialty Start Date End Date Polo Pearce PA [address] [place] [address] PCP - General Internal Medicine 06/09/21 documented as of this encounter
--- OUTSIDE RECORDS SUMMARY | 2024-04-10 17:10 | XMS_ITS | Encounter Summary ---
Author Organization [facility] [place] [address] Care Team Providers Care Rn Internship Name Role Phone Polo Pearce Primary Care Provider [phone] Reason for Referral * Consultation (Routine) - Closed Specialty Diagnoses / Procedures Referred By Jayant harris Referred To Contact Vascular Surgery Diagnoses Pulmonary embolism, unspecified chronicity, unspecified pulmonary embolism type, unspecified whether acute cor pulmonale present ROUTINE, SALVATORE, BLE DVT Vascular medicine PE clinic: seemingly unprovoked small PE. review consideration of hypercoagulability testing Jaspreet Kinsey MD [facility] [place] [address] Elvin Maya [place] [address] Referral ID Status Reason Start Date Expiration Date V isits Requested Visits Authorized [id number] Closed Consult, Test & Treat 07/30/2022 07/30/2023 1 1 Reason for Visit * Reason Comments Coronary Artery Disease Congestive Heart Failure HFpEF Chest Pain Encounter Details Date Type Department Care Team (Late st Contact Info) Description 07/30/2022 9:20 AM EDT Office Visit Cardiology at [address] [phone] Jaspreet Kinsey MD [facility] [place] [id number] Heart failure with preserved ejection fraction, unspecified [...] Intercurrently, patient presented earlier this week to [facility] with an abrupt increase in [...] a significant increase in UOP; however, at [facility] notes they gave me something [...] DAYS ??? fluticasone propionate (FLONASE) 50 mcg/actuation [place], Suspension 1 spray, Each Nare, DAILY ??? [...] discharge summary and medication administration record from [facility] to see what was given [...] discharge summary and medication administration record from [facility] to see what was given to her to effect UOP positively - Diuresis: bumex 1 qd - Cardioprotection: - SGLT2i: jardiance - MRA: aldactone 25 documented in this encounter Plan of Treatment Upcoming Encounters Date Type Department Care Team (Late st Contact Info) Description 07/19/2024 3:00 PM EDT Office [place] [address] [place] [address] Scheduled Referrals Name Type Priority Associated Diagnoses [...] documented in this encounter Care Teams Rn Internship Relationship Specialty Start Date End Date Polo Pearce PA [address] [place] [address] PCP - General Internal Medicine 06/09/21 documented as of this encounter
--- OUTSIDE RECORDS SUMMARY | 2024-04-10 17:10 | XMS_ITS | Encounter Summary ---
[place] [address] Care Team Providers Care Corduroy Cutter Operator Name Role Phone Polo Pearce Primary Care Provider [phone] Reason for Visit * Reason Onset Date Comments Chest Pain 07/27/2022 Shortness of Breath 07/27/2022 Fatigue 07/27/2022 Encounter Details Date Type Department Care Team (Late st Contact Info) Description 07/27/2022 Telephone Cardiology at [address] [address] Jaspreet Kinsey MD [facility] [place] [address] Chest Pain; Shortness of Breath; Fatigue Social [...] a fluid buildup. Please call her @ [phone] * Telephone Encounter - Nilda Mayes, RN [...] 3:00 PM EDT Office [place] [address] [place] [address] documented as of this encounter Visit Diagnoses Not on filedocumented in this encounter Care Teams Corduroy Cutter Operator Relationship Specialty Start Date End Date Polo Pearce PA [address] [place] [address] PCP - General Internal Medicine 06/09/21 documented as of this encounter
--- OUTSIDE RECORDS SUMMARY | 2024-04-10 17:10 | XMS_ITS | Encounter Summary ---
Author Organization [facility] [place] [address] Care Team Providers Care Life Insurance Agent Name Role Phone Polo Pearce Primary Care Provider [phone] Encounter Details Date Type Department Care Team (Late st Contact Info) Description 09/26/2022 External Results [place] [address] Social History Tobacco Use Types Packs/Day Years [...] 3:00 PM EDT Office [place] [address] [place] [address] documented as of this encounter Procedures Procedure Name Priority Date/Time Associated Diagnosis Comments ECG SCAN Routine 09/26/2022 8:40 AM EDT documented in this encounter Results * Scan Doc: ECG (09/26/2022 8:40 AM EDT) Historical Provider MEDIA MGR SCAN EX T ORDR/RSLT documented in this encounter Visit Diagnoses Not on filedocumented in this encounter Care Teams Life Insurance Agent Relationship Specialty Start Date End Date Polo Pearce PA [address] [place] [address] PCP - General Internal Medicine 06/09/21 documented as of this encounter
--- OUTSIDE RECORDS SUMMARY | 2024-04-10 17:10 | XMS_ITS | Encounter Summary ---
[place] [address] Care Team Providers Care Site Physician Name Role Phone Polo Pearce Primary Care Provider [phone] Encounter Details Date Type Department Care Team [...] 3:00 PM EDT Office [place] [address] [place] [address] documented as of this encounter Visit Diagnoses Not on filedocumented in this encounter Care Teams Site Physician Relationship Specialty Start Date End Date Polo Pearce PA [address] [place] [address] PCP - General Internal Medicine 06/09/21 documented as of this encounter
--- OUTSIDE RECORDS SUMMARY | 2024-04-10 17:10 | XMS_ITS | Encounter Summary ---
[place] [address] Care Team Providers Care Pole Tester Name Role Phone Polo Pearce Primary Care Provider [phone] Reason for Visit * Auth/Cert (Routine) Specialty Diagnoses / Procedures Referred By Contac t Referred To Contact Diagnoses NSTEMI (non-ST elevated myocardial infarction) NSTEMI NSTEMI (non-ST elevated myocardial infarction) [I21.4] [I21.4] NSTEMI (non-ST elevated myocardial infarction) Procedures EMERGENCY IPI Itz Bhardwaj MD [facility] [place] [address] [facility] Referral ID Status Reason Start Date Expiration Date Visits Re quested Visits Authorized [id number] 1 1 Encounter Details Date Type Department Care Team (Latest Contact Info) Description 02/08/2023 6:34 PM EST - 02/11/2023 3:45 PM EST Hospital Encounter Heart and Vascular Unit Level 4 [place] [id number] Bobby Edmonds MD [facility] [address] Itz Bhardwaj MD [facility] [place] [address] Chest pain, unspecified type; NSTEMI (non-ST elevated [...] th e electric, gas, oil, or water [employer] threatened to shut off services in [...] Loida Madrigal Patient Age: 52 y.o. Language: Cymro Race: White Ethnicity: Not nor Admit date: 02/08/2023 Discharge date and time: 02/11/2023 Attending Physician: Itz Bhardwaj MD Discharge Physician: Itz Bhardwaj MD PCP: JOCY Franco [phone]) ID: Loida Madrigal is a 52 y.o. female w/ PMH of NSTEMI (2019, no coronary disease identified),HTN, HLD, HFpEF, PE, AVNRT, and Afib on eliquis, admitted to [facility] on 02/08/2023 for a total [...] upper lobe. Started on eliquis 08/2022 TTE ([facility]): normal bi-v s/f. 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 In the [facility] ED, initial troponin was [...] elevated troponin and EKG changes, cardiology at [facility] was contacted for transfer. She [...] unchanged from prior EKGs. Her troponins at [facility] are flat 23 > 27. Additionally, she had a CT coronary in 09/2022 which showed non-obstructive coronary arteries. Her TTE was reassuring with EF 59% with concern for segmental wall motion abnormalities that were not present prior. Her chest pain is likely not related to ACS. She did continue to have chest pain throughoutadmission that responded to nitro. Her T[employer] SPECIALIST amlodipine was discontinued due to hypotension and [...] that was done by the on-call overnight feed blender, there is no significant change in biventricular [...] days. Refills: 0 fluticasone propionate 50 mcg/actuation [place], Suspension Commonly known as: Flonase 1 spray [...] 11:20 AM Jed Tovar MD Cardiology at [facility] Arrive at: [employer] Area [phone] 03/04/2023 4:00 PM Jaspreet Kinsey MD Cardiology at [place] Arrive at: [facility] [address] [phone] Provider Contact Information: JOCY Franco DR [facility] / [facility] [id number] Discharge References/Attachments: Discharge References/Attachments None Addendum: The [...] needed. fluticasone propionate (FLONASE) 50 mcg/actuation [place], Suspension 1 spray by Each Nare [...] as of this encounter Progress Notes * Hediy Walker DO - 02/10/2023 6:23 AM EST Inpatient Cardiology Progress Note Patient Name: Loida Madrigal Date of Admission: 02/08/2023 ( Hospital Day 2 days ) Service: S2 ID: Loida Madrigal is a 52 y.o. female with PMHx NSTEMI (2019, no coronary disease identified),HTN, HLD, HFpEF, AVNRT, hx of PE, and Afib on eliquis who initially presented to [facility] with chest pain and [...] that was done by the on-call overnight feed blender, there is no significant change in biventricular function. Assessment: Loida Madrigal is a 52 y.o. female with a PMHx NSTEMI (2019, no coronary disease identified), HTN, HLD, HFpEF, and Afib on eliquis who initially presented to [facility] with chest pain and [...] Heidy Walker DO Internal Medicine PGY-1 Pager [phone], M1-S2 Service Associated attestation - Itz Bhardwaj [...] Afib on eliquis who initially presented to [facility] with chest pain and [...] that was done by the on-call overnight feed blender, there is no significant change in biventricular function. Cardiac Catheterization: Pending. Assessment: Loida Madrigal is a 52 y.o. female with a PMHx NSTEMI (2019, no coronary disease identified), HTN, HLD, HFpEF, and Afib on eliquis who initially presented to [facility] with chest pain and [...] Heidy Walker DO Internal Medicine PGY-1 Pager [phone], M1-S2 Service documented in this encounter H&P Notes * German Bianchi MD - 02/08/2023 10:05 PM EST Images from the original note were not included. Cardiology Admission History and Physical Patient Name: Loida Madrigal Service: M1-S1 Responsible Attending: Bobby Edmonds MD PCP: JOCY Franco PCP phone #: [phone] ID/Chief Complaint: Loida Madrigal is a 52 y.o. female with a PMHx NSTEMI (2019, no coronary disease identified), HTN, HLD, HFpEF, PE, AVNRT, and Afib on eliquis who initially presented to [facility] with chest pain and shortness of breath, now transferred to [facility] for management of presumed NSTEMI. [...] At this time, she presented to the [facility] ED. In the [facility] ED, initial troponin was [...] elevated troponin and EKG changes, cardiology at [facility] was contacted for transfer. She [...] upper lobe. Started on eliquis 08/2022 TTE ([facility]): normal bi-v s/f. 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 fluticasone propionate (FLONASE) 50 mcg/actuation [place], Suspension 1 spray by Each Nare [...] Mother: history of stroke. Father: history of NC in father. Siblings: none. Social History: Tobacco: [...] Afib on eliquis who initially presented to [facility] with chest pain and shortness of breath, now transferred to [facility] for management of presumed NSTEMI. [...] Bianchi MD, PGY-2 Cardiology M1-S2, Team Pager [phone] 02/08/2023 Associated attestation - Itz Bhardwaj MD [...] fairly recent. She has ruled out for NC with low-level not increasing troponins and her [...] COVID test: Lab Results Component Value Date [id number] Not Detected 06/13/2021 Present on Admission: NSTEMI (non-ST elevated myocardial infarction) Hospitalizations Within the Past 30 Days: no previous admission in last 30 days Patient receiving hospital care under Inpatient status. Admission order reviewed. Health/Prescription Coverage: Primary Insurance: [employer] [place] Payor: [employer] [place] / Plan: [facility] [place] EXCHANGE / Product Type: *No Product type* / Secondary Insurance: N/A ; Prescription Coverage: Yes Preferred Pharmacy: [id number] - [place], [place] - [address] [facility] [address] [address] [facility] - [place], [place] - [address] [facility] [facility] [address] [facility] [address] [facility] [address] Advance Care Planning: Attempt Cardiopulmonary Resuscitation - Inpatient <no information> -Advanced Directive: No, need to discuss (Referral sent to [facility] - Vacation Planner) Current Functional Ability: Independent Functional Status Prior to Admission: Independent Home Environment: Others in the home: spouse (Lives w/ (Boby)). Current Living Arrangements: home/apartment/condo. Accessibility Concerns:1.5 story home (steps w/ railings). 5-6 [place] home. No concerns. Current DME: respiratory supplies ([employer] ([employer])) [address] [facility] [id number] Social & Family Supports: All names listed [...] Tasha aguayo, when medically ready. Registered Nurse Real Estate Office Manager / Client Account Assistant will continue to follow patient???s progress and [...] gtt infusing. Bedside echo & EKG done. Wallace MD made aware of K2.9; repleted w/ [...] 3:00 PM EDT Office [place] [phone] [place] [address] documented as of this encounter Procedures Procedure [...] multiple bacterial species suggesting mucosal contamination. (A) [facility] Urine 02/11/2023 9:30 AM EST 02/11/2023 1:19 PM EST Narrative Resulting Agency Comment Spec In Lab Heidy Walker MD MICROBIOLOGY - GENER AL ORDERABLES [facility] [place] [address] * (ABNORMAL) Urinalysis Microscopic Exam (02/11/2023 9:30 AM EST) RBC, Urine 1 0 - 4 /HPF [facility] WBC, Urine 29(H) 0 - 5 /HPF [facility] Bacteria, Urine Few(A) None /HPF [facility] Squamous Epithelial Cells Raw Data, Urine 1 <=4 /HPF [facility] Transitional Epithelial Cells, Urine 2(H) <=1 /HPF [facility] Hyaline Casts, Urine 2 0 - 2 /LPF [facility] Calcium Oxalate Crystal, Urine Moderate( A) None /HPF [facility] Urine Urine / Unknown 02/11/2023 9 :30 AM EST 02/11/2023 10:33 AM EST Narrative Resulting Agency Comment Spec In Lab Heidy Walker MD URINE ORDERABLES Performing Organization Address City/[facility]/ZIP Co de Phone Number [facility] [place] [address] * (ABNORMAL) Urinalysis with reflex Culture (02/11/2023 9:30 AM EST) Glucose, Urine Dipstick 500(Critical ) Negative mg/dL [facility] Comment: Urinalysis result NOT critical without a combination of Glucose greater than or equal to 500 mg/dL AND Ketones greater than or equal to 80 mg/dL Protein, Urine Dipstick Negative Negative mg/dL [facility] Bilirubin, Urine Dipstick Negative Negative mg/dL [facility] Comment: Clinical correlation required for positive Urine Bilirubin results as false positive may occur with some drugs and drug related products. If a false positive is suspected a serum total bilirubin should be considered if clinically indicated. Urobilinogen, Urine Dipstick Normal Normal mg/dL [facility] pH, Urn (dipstick) 5.5 5.0 - 8.0 [facility] Blood, Urine Dipstick Negative Negative mg/dL [facility] Ketone, Urine Dipstick Trace(A) Negative mg/dL [facility] Nitrite, Urine Dipstick Negative Negative [facility] Leukocytes, Urine Dipstick Moderate(A) Negative mcL [facility] Appearance, Urine Dipstick Cloudy(A) Clear [facility] Specific [place] Urine Automated 1.029 1.005 - 1.030 [facility] Color, Urine Dipstick Dark Yellow Yellow [facility] Reflex to Culture Yes [facility] Urine Urine / Unknown 02/11/2023 9 :30 AM EST 02/11/2023 10:32 AM EST Narrative Resulting Agency Comment Spec In Lab Heidy Walker MD URINE ORDERABLES Performing Organization Address City/[facility]/ZIP Co de Phone Number [facility] [place] [address] * EKG 12 Lead (02/11/2023 6:07 AM EST) Ventricular rate 47 BPM MUSE SYSTEM Atrial Rate 47 BPM MUSE SYSTEM P-R Interval 200 ms MUSE SYSTEM QRS Duration 88 ms MUSE SYSTEM Q-T Interval 522 ms MUSE SYSTEM QTC Calculated (Bezet) 461 ms MUSE SYSTEM Calculated P [place] 36 degrees MUSE SYSTEM Calculated R [place] 48 degrees MUSE SYSTEM Calculated T [place] 12 degrees MUSE SYSTEM INTERPRETATION Sinus bradycardia Possible Left atrial enlargement Possible Lateral infarct (cited on or before 08-FEB-2023) Long QT interval Abnormal ECG When compared with ECG of 10-FEB-2023 11:44, No significant change was found I personally reviewed the tracing and edited the fellows interpretation Confirmed by fellow MD Rosalinda, Alejandro ([id number]) on 02/11/2023 2:15:46 PM Confirmed by Kai Haider ([id number]) on 02/11/2023 4:16:20 PM MUSE SYSTEM 02/11/2023 6:07 AM EST 02/11/2023 4:16 PM EST Itz Bhardwaj MD ECG ORDERABLES MUSE SYSTEM * Differential, Automated (02/11/2023 3:41 AM EST) Neutrophil % 53.9 % [facility] Neutrophil Absolute 3.50 1.70 - 6.10 x10(3)/[facility] Lymph % 31.5 % [facility] Lymphocytes Abs 2.0 0.9 - 3.2 x10(3)/[facility] Monocyte % 8.9 % [facility] Monocyte Abs 0.6 0.3 - 0.9 x10(3)/[facility] Eos % 4.9 % [facility] Eosinophils Abs 0.3 0.0 - 0.4 x10(3)/[facility] Basophil % 0.6 % [facility] Baso Absolute 0.0 0.0 - 0.1 x10(3)/[facility] Immature Gran % 0.20 % [facility] Comment: Immature granulocytes(IG's)percentage and absolute count will include metamyelocytes, myelocytes, and promyelocytes. Blood smears from CBCs yielding IG's will be scanned manually for concordance. If this scan disagrees with the automated IG or if promyelocytes are noted, a manual differential will be performed. Immature Gran Absolute 0.01 0.00 - 0.04 x10(3)/[facility] Blood 02/11/2023 3:41 AM EST 02/11/2023 4:01 AM EST Narrative Resulting Agency Comment Spec In Lab German Bianchi MD HEMATOLOGY ORDERABL ES Performing Organization Address [facility] Co de Phone Number [facility] [place] [address] * Hemogram (02/11/2023 3:41 AM EST) White Blood Cell 6.5 4.0 - 9.5 x10(3)/[facility] Red Blood Cell 4.55 4.00 - 5.21 x10(6)/[facility] Hemoglobin 14.4 11.7 - 15.5 g/dL [facility] Hematocrit 42.9 35.7 - 45.8 % [facility] Mean Cell Volume 94.3 82.6 - 94.4 fL [facility] Mean Cell Hemoglobin 31.6 27.1 - 32.0 pg [facility] Mean Cell Hemoglobin Concentration 33.6 31.7 - 35.0 g/dL [facility] Platelet 240 145 - 357 x10(3)/[facility] RDW Standard Deviation 42.9 37.0 - 46.0 fL [facility] RDW coefficient of variation 12.4 11.5 - 14.1 % [facility] Mean Platelet Volume 11.0 7.6 - 12.9 fL [facility] NRBC% auto 0.0 % [facility] NRBC Absolute 0.000 0.000 - 0.000 x10(3)/[facility] Blood 02/11/2023 3:41 AM EST 02/11/2023 4:01 AM EST Narrative Resulting Agency Comment Spec In Lab German Bianchi MD HEMATOLOGY ORDERABL ES Performing Organization Address [facility] Co de Phone Number [facility] [place] [address] * Magnesium (02/11/2023 3:41 AM EST) Magnesium 0.91 0.69 - 1.07 mmol/L [facility] Blood 02/11/2023 3:41 AM EST 02/11/2023 4:01 AM EST Narrative Resulting Agency Comment Spec In Lab Bobby Edmonds MD CHEMISTRY ORDERABLES [facility] [place] [address] * (ABNORMAL) Basic Metabolic Panel (non-fasting) (02/11/2023 3:41 AM EST) Glucose 97 65 - 199 mg/dL [facility] Comment:Diabetes: >=200 mg/d L plus symptoms Blood Urea Nitrogen 23(H) 8 - 18 mg/dL [facility] Creatinine 1.07 0.70 - 1.20 mg/dL [facility] Sodium 138 135 - 145 mmol/L [facility] Potassium 4.0 3.5 - 5.0 mmol/L [facility] Comment: Please note: ??Patients with WBC >100,000 may have falsely elevated Potassium levels. ??For accurate Potassium quantification in these patients send serum separator tube (gold top) for subsequent determinations. ??Contact the Clinical Chemistry Laboratory if there are any questions. Chloride 109(H) 98 - 107 mmol/L [facility] Carbon Dioxide 17(L) 22 - 31 mmol/L [facility] Anion Gap 12 5 - 15 mmol/L [facility] Calcium 9.1 8.5 - 10.5 mg/dL [facility] Est Glomerular Filtration Rate 62 >=60 mL/min/1. 73 m?? [facility] Comment: This patient's estimated GFR [...] Edmonds MD CHEMISTRY ORDERABLES Performing Organization Address [facility] [place] [address] * Differential, Automated (02/10/2023 3:46 AM EST) Neutrophil % 59.8 % [facility] Neutrophil Absolute 4.01 1.70 - 6.10 x10(3)/[facility] Lymph % 27.5 % [facility] Lymphocytes Abs 1.8 0.9 - 3.2 x10(3)/[facility] Monocyte % 8.5 % [facility] Monocyte Abs 0.6 0.3 - 0.9 x10(3)/[facility] Eos % 3.7 % [facility] Eosinophils Abs 0.2 0.0 - 0.4 x10(3)/[facility] Basophil % 0.4 % [facility] Baso Absolute 0.0 0.0 - 0.1 x10(3)/[facility] Immature Gran % 0.10 % [facility] Comment: Immature granulocytes(IG's)percentage and absolute count will include metamyelocytes, myelocytes, and promyelocytes. Blood smears from CBCs yielding IG's will be scanned manually for concordance. If this scan disagrees with the automated IG or if promyelocytes are noted, a manual differential will be performed. Immature Gran Absolute 0.01 0.00 - 0.04 x10(3)/[facility] Blood 02/10/2023 3:46 AM EST 02/10/2023 4:12 AM EST Narrative Resulting Agency Comment Spec In Lab German Bianchi MD HEMATOLOGY ORDERABL ES Performing Organization Address [facility] [place] [address] * Hemogram (02/10/2023 3:46 AM EST) White Blood Cell 6.7 4.0 - 9.5 x10(3)/[facility] Red Blood Cell 4.60 4.00 - 5.21 x10(6)/[facility] Hemoglobin 14.4 11.7 - 15.5 g/dL [facility] Hematocrit 42.2 35.7 - 45.8 % [facility] Mean Cell Volume 91.7 82.6 - 94.4 fL [facility] Mean Cell Hemoglobin 31.3 27.1 - 32.0 pg [facility] Mean Cell Hemoglobin Concentration 34.1 31.7 - 35.0 g/dL [facility] Platelet 246 145 - 357 x10(3)/[facility] RDW Standard Deviation 42.3 37.0 - 46.0 fL [facility] RDW coefficient of variation 12.6 11.5 - 14.1 % [facility] Mean Platelet Volume 11.1 7.6 - 12.9 fL [facility] NRBC% auto 0.0 % [facility] NRBC Absolute 0.000 0.000 - 0.000 x10(3)/[facility] Blood 02/10/2023 3:46 AM EST 02/10/2023 4:12 AM EST Narrative Resulting Agency Comment Spec In Lab German Bianchi MD HEMATOLOGY ORDERABL ES Performing Organization Address City/[facility]/ZIP Co de Phone Number [facility] [place] [address] * Magnesium (02/10/2023 3:46 AM EST) Magnesium 1.01 0.69 - 1.07 mmol/L [facility] Blood 02/10/2023 3:46 AM EST 02/10/2023 4:12 AM EST Narrative Resulting Agency Comment Spec In Lab Bobby Edmonds MD CHEMISTRY ORDERABLES Performing Organization Address City/[facility]/ZIP Co de Phone Number [facility] [place] [address] * (ABNORMAL) Basic Metabolic Panel (non-fasting) (02/10/2023 3:46 AM EST) Glucose 103 65 - 199 mg/dL [facility] Comment:Diabetes: >=200 mg/d L plus symptoms Blood Urea Nitrogen 20(H) 8 - 18 mg/dL [facility] Creatinine 1.31(H) 0.70 - 1.20 mg/dL [facility] Sodium 141 135 - 145 mmol/L [facility] Potassium 3.4(L) 3.5 - 5.0 mmol/L [facility] Comment: Please note: ??Patients with WBC >100,000 may have falsely elevated Potassium levels. ??For accurate Potassium quantification in these patients send serum separator tube (gold top) for subsequent determinations. ??Contact the Clinical Chemistry Laboratory if there are any questions. Chloride 105 98 - 107 mmol/L [facility] Carbon Dioxide 23 22 - 31 mmol/L [facility] Anion Gap 13 5 - 15 mmol/L [facility] Calcium 9.2 8.5 - 10.5 mg/dL [facility] Est Glomerular Filtration Rate 49(L) >=60 mL/min/1. 73 m?? [facility] Comment: This patient's estimated GFR [...] In Lab Bobby Edmonds MD CHEMISTRY ORDERABLES [facility] [place] [address] * Potassium (02/09/2023 2:46 PM EST) Potassium 4.0 3.5 - 5.0 mmol/L [facility] Comment: Please note: ??Patients with WBC >100,000 may have falsely elevated Potassium levels. ??For accurate Potassium quantification in these patients send serum separator tube (gold top) for subsequent determinations. ??Contact the Clinical Chemistry Laboratory if there are any questions. Blood 02/09/2023 2:46 PM EST 02/09/2023 2:58 PM EST Narrative Resulting Agency Comment Spec In Lab Itz Bhardwaj MD CHEMISTRY ORDERABL ES [facility] [place] [address] * ECHO LMTD W CONTRAST W LMTD SPEC DOPP COLOR DOPP (02/09/2023 9:01 AM EST) Anatomical Region Laterality Modality Cardiac Other 02/09/2023 8:19 AM EST Narrative 02/09/2023 9:39 AM EST [address] [place] [address] ? Echocardiogram Report Name: JUDE LOIDA ? Study Date: 02/09/2023 08:19 AMBP: 98/57 mmHg ? Patient Location: [facility] 0467 A : 1970 ? Height: 163 cm ? Account: [id number] Age: 52 yrs ? Weight: 99 kg Gender: Female ?BSA: 2.0 m2 Ordering Physician: BOBBY EDMONDS Referring Physician: AJ HARTMAN Performed By: Aaron Herr RDCS Reason For Study: NSTEMI (non-ST elevated myocardial infarction) Interpreting Fellow: Ciro Lovell. Exam Location: [facility]. Interpretation Summary Left ventricular [...] that was done by the on-call overnight feed blender, there is no significant change in biventricular function. Procedure Limited - 56004. Image enhancement Definity was used for left [...] Note Manish Benitez MD - 02/09/2023 [address] [place] [address] Echocardiogram Report Name: LOIDA MADRIGAL Study Date: 308:19 AMBP: 98/57 mmHg Patient Location: [id number] A : 1970 Height: 163 cm Account: [id number] Age: 52 yrs Weight: 99 kg Gender: Female BSA: 2.0 m2 Ordering Physician: BOBBY EDMONDS Referring Physician: AJ HARTMAN Performed By: Aaron Herr RDCS Reason For Study: NSTEMI (non-ST elevated myocardial infarction) Interpreting Fellow: Ciro Lovell. Exam Location: [facility]. Interpretation Summary Left ventricular [...] change in biventricular function. Procedure Limited - [address]. Image enhancement Definity was used for leftventricular [...] EST) Troponin-T, High Sensitivity 27(H) <=14 ng/L [facility] Comment: This patient's troponin T [...] [facility] Test Catalog Reference: Fourth [place] Definition of Myocardial Infarction. Journal of the [place] [employer] 2018;72:1014-4995 Blood 02/09/2023 8:01 AM EST 02/09/2023 8:06 AM EST Narrative Resulting Agency Comment Spec In Lab Itz Bhardwaj MD CHEMISTRY ORDERABL ES Performing Organization Address City/[facility] Co de Phone Number [facility] [place] [address] * CRP, acute inflammation (02/09/2023 3:55 AM EST) C-Reactive Protein <3.0 <=4.9 mg/L [facility] Blood Venous Draw / Unknown 02/09/2023 3:55 AM EST 02/09/2023 4:07 AM EST Narrative Resulting Agency Comment Spec In Lab Grady Metcalf MD CHEMISTRY ORDERABLES Performing Organization Address City/[facility]/ZIP Co de Phone Number [facility] [place] [address] * Sedimentation rate (02/09/2023 3:55 AM EST) Sedimentation Rate Automated 15 2 - 39 mm/hr [facility] Comment: Effective February 15, 2019 new capillary photometric technology has resulted in a change in reference ranges. It is recommended that each ESR result be reviewed with its own age appropriate reference range. Blood Venous Draw / Unknown 02/09/2023 3:55 AM EST 02/09/2023 4:06 AM EST Narrative Resulting Agency Comment Spec In Lab Grady Metcalf MD HEMATOLOGY ORDERABLE S [facility] [place] [address] * Differential, Automated (02/09/2023 3:55 AM EST) [facility] Neutrophil % 54.3 % [facility] Neutrophil Absolute 3.66 1.70 - 6.10 x10(3)/[facility] Lymph % 32.4 % [facility] Lymphocytes Abs 2.2 0.9 - 3.2 x10(3)/[facility] Monocyte % 8.3 % [facility] Monocyte Abs 0.6 0.3 - 0.9 x10(3)/[facility] Eos % 4.1 % [facility] Eosinophils Abs 0.3 0.0 - 0.4 x10(3)/[facility] Basophil % 0.6 % [facility] Baso Absolute 0.0 0.0 - 0.1 x10(3)/[facility] Immature Gran % 0.30 % [facility] Comment: Immature granulocytes(IG's)percentage and absolute count will include metamyelocytes, myelocytes, and promyelocytes. Blood smears from CBCs yielding IG's will be scanned manually for concordance. If this scan disagrees with the automated IG or if promyelocytes are noted, a manual differential will be performed. Immature Gran Absolute 0.02 0.00 - 0.04 x10(3)/[facility] Blood 02/09/2023 3:55 AM EST 02/09/2023 4:06 AM EST Narrative Resulting Agency Comment Spec In Lab German Bianchi MD HEMATOLOGY ORDERABL ES Performing Organization Address City/[facility] Co de Phone Number [facility] [place] [address] * Hemogram (02/09/2023 3:55 AM EST) White Blood Cell 6.8 4.0 - 9.5 x10(3)/[facility] Red Blood Cell 4.53 4.00 - 5.21 x10(6)/[facility] Hemoglobin 14.2 11.7 - 15.5 g/dL [facility] Hematocrit 41.2 35.7 - 45.8 % [facility] Mean Cell Volume 90.9 82.6 - 94.4 fL [facility] Mean Cell Hemoglobin 31.3 27.1 - 32.0 pg [facility] Mean Cell Hemoglobin Concentration 34.5 31.7 - 35.0 g/dL [facility] Platelet 237 145 - 357 x10(3)/[facility] RDW Standard Deviation 41.1 37.0 - 46.0 fL [facility] RDW coefficient of variation 12.4 11.5 - 14.1 % [facility] Mean Platelet Volume 11.2 7.6 - 12.9 fL [facility] NRBC% auto 0.0 % [facility] NRBC Absolute 0.000 0.000 - 0.000 x10(3)/[facility] Blood 02/09/2023 3:55 AM EST 02/09/2023 4:06 AM EST Narrative Resulting Agency Comment Spec In Lab German Bianchi MD HEMATOLOGY ORDERABL ES Performing Organization Address City/[facility]/ZIP Co de Phone Number [facility] [place] [address] * (ABNORMAL) Heparin (unfractionated) Level (02/09/2023 3:55 AM EST) UF Heparin 1.44(Crit ical) IU/mL [facility] Comment: Critical Result called by [...] MD HEMATOLOGY ORDERABLE S Performing Organization Address [facility] Co de Phone Number [facility] [place] [address] * Magnesium (02/09/2023 3:55 AM EST) Magnesium 1.04 0.69 - 1.07 mmol/L [facility] Blood 02/09/2023 3:55 AM EST 02/09/2023 4:06 AM EST Narrative Resulting Agency Comment Spec In Lab Bobby Edmonds MD CHEMISTRY ORDERABLES Performing Organization Address [facility] Co de Phone Number [facility] [place] [address] * (ABNORMAL) Basic Metabolic Panel (non-fasting) (02/09/2023 3:55 AM EST) Glucose 103 65 - 199 mg/dL [facility] Comment:Diabetes: >=200 mg/d L plus symptoms Blood Urea Nitrogen 19(H) 8 - 18 mg/dL [facility] Creatinine 1.13 0.70 - 1.20 mg/dL [facility] Sodium 142 135 - 145 mmol/L [facility] Comment:result rechecked-GH Potassium 2.9(Criti edy) 3.5 - 5.0 mmol/L [facility] Comment: Called by: , Read back by: Zoila Bhatt, Date/Time:02/09/23 04:43. Please note: ??Patients with WBC >100,000 may have falsely elevated Potassium levels. ??For accurate Potassium quantification in these patients send serum separator tube (gold top) for subsequent determinations. ??Contact the Clinical Chemistry Laboratory if there are any questions. Chloride 103 98 - 107 mmol/L [facility] Comment:result rechecked- Carbon Dioxide 24 22 - 31 mmol/L [facility] Comment:result rechecked- Anion Gap 15 5 - 15 mmol/L [facility] Calcium 9.4 8.5 - 10.5 mg/dL [facility] Est Glomerular Filtration Rate 58(L) >=60 mL/min/1. 73 m?? [facility] Comment: This patient's estimated GFR [...] In Lab Bobby Edmonds MD CHEMISTRY ORDERABLES [facility] [place] [address] * Differential, Automated (02/08/2023 10:08 PM EST) Neutrophil % 55.7 % [facility] Neutrophil Absolute 4.29 1.70 - 6.10 x10(3)/[facility] Lymph % 33.0 % [facility] Lymphocytes Abs 2.5 0.9 - 3.2 x10(3)/[facility] Monocyte % 7.7 % [facility] Monocyte Abs 0.6 0.3 - 0.9 x10(3)/[facility] Eos % 2.9 % [facility] Eosinophils Abs 0.2 0.0 - 0.4 x10(3)/[facility] Basophil % 0.6 % [facility] Baso Absolute 0.0 0.0 - 0.1 x10(3)/[facility] Immature Gran % 0.10 % [facility] Comment: Immature granulocytes(IG's)percentage and absolute count will include metamyelocytes, myelocytes, and promyelocytes. Blood smears from CBCs yielding IG's will be scanned manually for concordance. If this scan disagrees with the automated IG or if promyelocytes are noted, a manual differential will be performed. Immature Gran Absolute 0.01 0.00 - 0.04 x10(3)/[facility] Blood 02/08/2023 10:0 8 PM EST 02/08/2023 10:18 PM EST Narrative Resulting Agency Comment Spec In Lab German Bianchi MD HEMATOLOGY ORDERABL ES [facility] [place] [address] * (ABNORMAL) Hemogram (02/08/2023 10:08 PM EST) White Blood Cell 7.7 4.0 - 9.5 x10(3)/mc L [facility] Red Blood Cell 4.93 4.00 - 5.21 x10(6)/mc L [facility] Hemoglobin 15.6(H) 11.7 - 15.5 g/dL [facility] Hematocrit 46.9(H) 35.7 - 45.8 % [facility] Mean Cell Volume 95.1(H) 82.6 - 94.4 fL [facility] Mean Cell Hemoglobin 31.6 27.1 - 32.0 pg [facility] Mean Cell Hemoglobin Concentration 33.3 31.7 - 35.0 g/dL [facility] Platelet 201 145 - 357 x10(3)/ L [facility] RDW Standard Deviation 45.0 37.0 - 46.0 fL [facility] RDW coefficient of variation 12.8 11.5 - 14.1 % [facility] Mean Platelet Volume 11.3 7.6 - 12.9 fL [facility] NRBC% auto 0.0 % [facility] NRBC Absolute 0.000 0.000 - 0.000 x10(3)/mc L [facility] Blood 02/08/2023 10:0 8 PM EST 02/08/2023 10:18 PM EST Narrative Resulting Agency Comment Spec In Lab German Bianchi MD HEMATOLOGY ORDERABL ES [facility] [place] [address] * (ABNORMAL) Troponin (02/08/2023 10:08 PM EST) Troponin-T, High Sensitivity 23(H) <=14 ng/L [facility] Comment: This patient's troponin T [...] [facility] Test Catalog Reference: Fourth [place] Definition of Myocardial Infarction. Journal of the [place] [employer] 2018;72:6629-3115 Blood 02/08/2023 10:0 8 PM EST 02/08/2023 10:18 PM EST Narrative Resulting Agency Comment Spec In Lab Bobby Edmonds MD CHEMISTRY ORDERABLES Performing Organization Address City/[facility]/ZIP Co de Phone Number [facility] [place] [address] * (ABNORMAL) Magnesium (02/08/2023 10:08 PM EST) Magnesium 1.15(H) 0.69 - 1.07 mmol/L [facility] Blood 02/08/2023 10:0 8 PM EST 02/08/2023 10:18 PM EST Narrative Resulting Agency Comment Spec In Lab Bobby Edmonds MD CHEMISTRY ORDERABLES Performing Organization Address [facility] Co de Phone Number [facility] [place] [address] * (ABNORMAL) Basic Metabolic Panel (non-fasting) (02/08/2023 10:08 PM EST) Glucose 106 65 - 199 mg/dL [facility] Comment:Diabetes: >=200 mg/d L plus symptoms Blood Urea Nitrogen 17 8 - 18 mg/dL [facility] Creatinine 0.96 0.70 - 1.20 mg/dL [facility] Sodium 151(H) 135 - 145 mmol/L [facility] Potassium 3.4(L) 3.5 - 5.0 mmol/L [facility] Comment: Please note: ??Patients with WBC >100,000 may have falsely elevated Potassium levels. ??For accurate Potassium quantification in these patients send serum separator tube (gold top) for subsequent determinations. ??Contact the Clinical Chemistry Laboratory if there are any questions. Chloride 91(L) 98 - 107 mmol/L [facility] Carbon Dioxide 12(L) 22 - 31 mmol/L [facility] Anion Gap 48(H) 5 - 15 mmol/L [facility] Calcium 8.9 8.5 - 10.5 mg/dL [facility] Est Glomerular Filtration Rate 71 >=60 mL/min/1. 73 m?? [facility] Comment: This patient's estimated [...] Edmonds MD CHEMISTRY ORDERABLES Performing Organization Address City/[facility]/ZIP Co de Phone Number [facility] [place] [address] * (ABNORMAL) pro-Brain Natriuretic Peptide (02/08/2023 10:08 PM EST) NT-proBNP 850(H) <=124 pg/mL [facility] Blood 02/08/2023 10:0 8 PM EST 02/08/2023 10:18 PM EST Narrative Resulting Agency Comment Spec In Lab Bobby Edmonds MD CHEMISTRY ORDERABLES Performing Organization Address [facility] Co de Phone Number [facility] [place] [address] * TSH (02/08/2023 10:08 PM EST) Thyroid Stimulating Hormone 4.00 0.27 - 4.20 mcIU/mL [facility] Comment: Reference Interval (mcIU/mL): Females: ??First Trimester: 0.23-3.88 ??Second Trimester: 0.22-3.90 ??Third Trimester: 0.44-4.66 Blood 02/08/2023 10:0 8 PM EST 02/08/2023 10:18 PM EST Narrative Resulting Agency Comment Spec In Lab Bobby Edmonds MD CHEMISTRY ORDERABLES Performing Organization Address City/[facility]/ZIP Co de Phone Number [facility] [place] [address] * EKG 12 Lead (02/08/2023 6:38 PM EST) Ventricular rate 56 BPM MUSE SYSTEM Atrial Rate 56 BPM MUSE SYSTEM P-R Interval 182 ms MUSE SYSTEM QRS Duration 88 ms MUSE SYSTEM Q-T Interval 498 ms MUSE SYSTEM QTC Calculated (Bezet) 480 ms MUSE SYSTEM Calculated P [place] 27 degrees MUSE SYSTEM Calculated R [place] 40 degrees MUSE SYSTEM Calculated T [place] 15 degrees MUSE SYSTEM INTERPRETATION Sinus bradycardia [...] EST Unknown ECG ORDERABLES Performing Organization Address [facility] Co [...] on tablet., Routine 0531 (Given - Provider: Zolia Bhatt RN)1023 (Given - Provider: Opal Traore, [...] Routine documented in this encounter Care Teams Pole Tester Relationship Specialty Start Date End Date Polo Pearce PA [address] [place] [address] PCP - General Internal Medicine 06/09/21 documented as of this encounter
--- OUTSIDE RECORDS SUMMARY | 2024-04-10 17:11 | XMS_ITS | Encounter Summary ---
Author Organization [facility] Address [facility] [place] [address] Care Team Providers Care Production Hardener Name Role Phone Polo Pearce Primary Care Provider [phone] Reason for Visit * Reason Onset Date Comments Chest Pain 03/11/2022 Encounter Details Date Type Department Care Team (Late st Contact Info) Description 03/11/2022 Telephone Cardiology at [address] [address] Jaspreet Kinsey MD [facility] [place] [address] Chest Pain Social History Tobacco Use Types [...] UTI, URI symptoms Requesting discharge summary(s) from [facility] from this week. Plan: to determine the indication and goals for this follow up cardiology appointment. From consultation by [facility] with Vianey Mike on 03/10/2021: Patient's [...] and blood in urine. Her number is [phone] should you have any questions. I looked in the chart and looks like we still need those records documented in this encounter Plan of Treatment Upcoming Encounters Date Type Department Care Team (Late st Contact Info) Description 07/19/2024 3:00 PM EDT Office Visit [place] [address] Mary Reyes, COMPOSITE [place] [address] documented as of this encounter Visit Diagnoses Not on filedocumented in this encounter Care Teams Production Hardener Relationship Specialty Start Date End Date Polo Pearce PA [address] [place] [address] PCP - General Internal Medicine 06/09/21 documented as of this encounter
--- OUTSIDE RECORDS SUMMARY | 2024-04-10 17:11 | XMS_ITS | Encounter Summary ---
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 Sandy Serna MD [facility] GENER[facility] INTERNAL MEDICINE [place], [place] [address] [place] [address] [address] [place] [id number] Referral ID Status Reason Start Date Expiration Date V isits Requested Visits Authorized [id number] Closed Consult, Test & Treat 06/14/2021 06/14/2022 1 1 Encounter Details Date Type Department Care Team (Late st Contact Info) Description 08/19/2021 3:00 PM EDT Office Visit Cardiology at [address] [phone] Umberto Joy PA [facility] [place] [address] AVNRT (AV makayla re-entry tachycardia) Social History [...] EKGs(ST T-wave abnormalities) but clean cors at [facility] in 2019 and essentially normal echocardiogram(LVEF [...] anticipated in the future. She lives in [place], [place] and has seen Dr. Kinsey in [place]. Patient Active Problem List Diagnosis ??? 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 Obesity ??? Dyslipidemia ??? MARYLOU on CPAP ??? Restless leg syndrome ??? Insomnia ??? 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 Financial Resource [...] needed. ??? fluticasone propionate (FLONASE) 50 mcg/actuation [place], Suspension 1 spray by Each Nare route [...] history and diagnostic findings with emphasis on cardiac exercise specialist data. We also discussed risk/benefit of EPS/ablation [...] 3:00 PM EDT Office [place] [address] [place] [address] documented as of this encounter Procedures Procedure [...] (Bezet) 443 ms MUSE SYSTEM Calculated P [place] 49 degrees MUSE SYSTEM Calculated R [place] 63 degrees MUSE SYSTEM Calculated T [place] -60 degrees MUSE SYSTEM INTERPRETATION Sinus bradycardia [...] dysrhythmias documented in this encounter Care Teams Acute Care Clinical Nurse Specialist Relationship Specialty Start Date End Date Polo Pearce PA [address] [place] [address] PCP - General Internal Medicine 06/09/21 documented as of this encounter
--- OUTSIDE RECORDS SUMMARY | 2024-04-10 17:11 | XMS_ITS | Encounter Summary ---
Author Organization [facility] [place] [address] Care Team Providers Care Office Machinery Or Equipment Installer Name Role Phone Polo Pearce Primary Care Provider [phone] Encounter Details Date Type Department Care Team (Late st Contact Info) Description 12/30/2021 8:00 PM EDT Ancillary Procedure Radiology Library at [facility] [place] [phone] Jaspreet Kinsey MD [facility] [place] [address] Social History Tobacco Use Types Packs/Day Years [...] 3:00 PM EDT Office Visit Gastroenterology at [facility] [place] [phone] Mary Reyes APRN [facility] [place] [address] documented as of this encounter Procedures Procedure [...] Kinsey MD G FILM LIBRARY ORD ERABLES [place], [place] documented in this encounter Visit Diagnoses Not on filedocumented in this encounter Care Teams Office Machinery Or Equipment Installer Relationship Specialty Start Date End Date Polo Pearce PA [address] [place] [address] PCP - General Internal Medicine 06/09/21 documented as of this encounter
--- OUTSIDE RECORDS SUMMARY | 2024-04-10 17:11 | XMS_ITS | Encounter Summary ---
[place] [address] Care Team Providers Care Sling Operator Name Role Phone Polo Pearce Primary Care Provider [phone] Encounter Details Date Type Department Care Team (Late st Contact Info) Description 06/11/2021 Telephone Cardiology at [address] [address] Deja Zaidi PA [address] [address] Social History Tobacco Use Types [...] JOCY Hernandez 06/11/2021 JOCY Hernandez 06/11/2021 Pager [phone] documented in this encounter Plan of Treatment Upcoming Encounters Date Type Department Care Team (Late st Contact Info) Description 07/19/2024 3:00 PM EDT Office [place] [address] [place] [address] documented as of this encounter Visit Diagnoses Not on filedocumented in this encounter Care Teams Sling Operator Relationship Specialty Start Date End Date Polo Pearce PA [address] [address] PCP - General Internal Medicine 06/09/21 documented as of this encounter
--- OUTSIDE RECORDS SUMMARY | 2024-04-10 17:11 | XMS_ITS | Encounter Summary ---
[place] [address] Care Team Providers Care Family Law Attorney Name Role Phone Polo Pearce Primary Care Provider Reason for Referral * Diagnostic Test (Routine) - Closed Specialty Diagnoses / Procedures Referred By Contac t Referred To Contact Cardiology Diagnoses Elevated blood pressure reading without diagnosis of hypertension Procedures Ziopatch 48 Hrs-15 Days Deja Zaidi PA [address] [place] [address] [facility] [place] [address] Referral ID Status Reason Start Date Expiration Date V isits Requested Visits Authorized [id number] Closed Specialty Service Requested 06/09/2021 12/09/2021 1 1 Reason for Visit * Diagnostic Test (Routine) - Closed Specialty Diagnoses / Procedures Referred By Contac t Referred To Contact Cardiology Diagnoses Elevated blood pressure reading without diagnosis of hypertension Procedures Ziopatch 48 Hrs-15 Days Deja Zaidi PA [address] [place] [address] [facility] Non-[place] [facility] [place] [address] Referral ID Status Reason Start Date Expiration Date V isits Requested Visits Authorized [id number] Closed Specialty Service Requested 06/09/2021 12/09/2021 1 1 Encounter Details Date Type Department Care Team (Latest Contact Info) Description 06/09/2021 3:00 PM EDT - 06/09/2021 11:59 PM EDT Hospital Encounter Non-[place] [address] Elevated blood pressure reading without diagnosis of [...] as needed. fluticasone propionate (FLONASE) 50 mcg/actuation [place], Suspension 1 spray by Each Nare [...] 3:00 PM EDT Office [place] [id number] [place] [address] documented as of this encounter Procedures Procedure Name Priority Date/Time Associated Diagnosis Comments ZIOPATCH 48 HRS-15 DAYS Routine 06/09/2021 3:48 PM EDT Elevated blood pressure reading without diagnosis of hypertension documented in this encounter Results * Ziopatch 48 Hrs-15 Days (06/09/2021 3:48 PM EDT) Anatomical Region Laterality Modality Other Narrative 07/01/2021 9:29 AM EDT [facility] ? Zio Patch? Ambulatory Cardiac Event [...] atrial premature beat conducted with a prolonged ME interval, strongly suggestive of atrioventricular makayla reentrant [...] as described ?? Kurt Larose MD, PhD, [facility] Cardiac Electrophysiology Mario Hallman MD CARDIAC SERVICES ORD ERABLES documented in this encounter Visit Diagnoses Diagnosis Elevated blood pressure reading without diagnosis of hypertension documented in this encounter Care Teams Family Law Attorney Relationship Specialty Start Date End Date Polo Pearce PA [address] [place] [address] PCP - General Internal Medicine 06/09/21 documented as of this encounter
--- OUTSIDE RECORDS SUMMARY | 2024-04-10 17:11 | XMS_ITS | Encounter Summary ---
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 ablation due to symptomatic SVT with myocardial injury Sandy Serna MD [facility] [address] Cardiology [address] [place] [phone] Referral ID Status Reason Start Date Expiration Date V isits Requested Visits Authorized [id number] Closed Consult, Test & Treat 06/14/2021 06/14/2022 1 1 Reason for Visit * Auth/Cert Specialty Diagnoses / Procedures Referred By Jayant harris Referred To Contact Diagnoses NSTEMI (non-ST elevated myocardial infarction) NSTEMI Procedures EMERGENCY IPI Referral ID Status Reason Start Date Expiration Date Visits Re quested Visits Authorized [id number] 1 1 Encounter Details Date Type Department Care Team (Latest Contact Info) Description 06/13/2021 12:35 PM EDT - 06/14/2021 1:22 PM EDT Hospital Encounter Cardiac Special [facility] [place] [address] Jose Rodrigues MD Chest pain, unspecified type; Supraventricular tachycardia; Chest [...] Discharge date and time: 06/14/2021 Attending Physician: No att. providers found Follow-up Recommendations for Providers: [...] depressions on EKG. Indira was transferred to [facility] for further evaluation. ?? Of note, the patient was just released from [facility] for chest pain on Wednesday06/09/2021. During that [...] consistent with myocardial injury pattern. [facility] was not pursued as the patient was CP free, has suspected microvascular disease from [facility] 18 months ago and episode was [...] Labs 06/14/21 0513 06/13/21 1526 06/09/21 0337 06/08/21 04406/07/21 1726 WBC 7.0 6.3 7.9 11.3* 12.0* HGB 15.2 16.1* 15.2 13.9 14.5 PLATELET 252 237 334 312 346 Recent Labs 06/14/21 0513 06/13/21 1526 06/09/21 0337 06/08/21 04406/07/21 1726 NA 138 137 137 138 137 K 4.2 4.4 4.1 4.1 4.3 CL 106 102 102 103 101 CO2 19* 17* 22 22 24 BUN 21* 20* 23* 21* 18 CREATININE 0.80 0.88 0.86 0.87 1.07 GLUCOSE 98 77 -- -- -- Recent Labs 06/14/21 0513 06/13/21 1526 06/09/21 0337 CALCIUM 9.0 9.2 9.3 MAGNESIUM 0.90 0.93 -- PHOS -- 3.6 -- Recent Labs 06/14/21 0513 06/13/21 2141 06/13/21 1840 06/13/21 1526 06/08/21 1158 06/08/21 04406/07/21 1726 CK -- -- -- -- 30 -- 33 TROPONINT 0.04* 0.04* 0.04* < > -- < > -- < > = values in this interval not displayed. Recent Labs 06/13/21 1526 AST 44* ALT 31* ALKPHOS 70 BILITOT 0.4 BILIDIR 0.1 Recent Labs 06/13/21 1526 INR 1.1 Lab Results Component Value Date [...] 8:20 AM Jaspreet Kinsey MD Cardiology at [place] Arrive at: [facility] [address] [phone] Future Orders Complete By Expires NM PET CT Cardiac Pharmacologic Stress and Rest [[id number] Custom] 06/14/2021 10/14/2021 Process Instructions: Scheduling Instructions: Questions: Where will study be performed?: [facility] Radiology Reason for exam and clinical history: concern for microvascular disease vs CAD Clinical information / chavis questions for radiologist: Is the patient ?: No Initial treatment or subsequent treatment?: Stat read required?: Does patient require sedation?: GA rationale: Date of injury if applicable: Requested Time: NM PET CT Cardiac Pharmacologic Stress CT Component [[id number] Custom] 06/14/2021 10/14/2021 Process Instructions: Scheduling Instructions: Questions: Where will study be performed?: [facility] Radiology Reason for exam and clinical history: Study performed for attenuation correction of the stress test. Nuclear Pharmacologic Stress Cardiology (PET CT Mobile) [[id number] CPT(R)] 06/14/2021 10/14/2021 Process Instructions: Order [id number], NM myocardial perfussion scan, pharmacologic, should also be placed for the radiologyportion of the test. Scheduling Instructions: Cardiac perfusion (Stress and Lexiscan) - NPO after midnight, medication instructions per referringphysician. Avoidance of all caffeinated and decaffeinated products (No coffee, teas, chocolate, or cola drinks) for at least 12 hours prior to exam. Questions: Where will study be performed?: [facility] Clinics Does the patient have a device?: [...] Center 07/23/2021 8:20 AM Jaspreet Kinsey MD [facility] Your Inpatient Medical Team at [facility] Name(s) of your inpatient provider(s): Attending - Jose Rodrigues MD Fellow - Brody Bernard MD Resident - Sandy Serna MD Certified Neurodiagnostic Technologist - Sha Vale MD Your Primary Care Provider: JOCY Franco [phone] For questions regarding this document or issues relating to this hospitalization on the Medical Service, please contact your inpatient physician through the [facility] Battery Installer . Issues afterhours and on weekends will be handled by the Hospitalist staff on-call. For questions regarding this document or issues relating to this hospitalization on the Medical Service, please contact your inpatient physician through the [facility] Battery Installer . Issues afterhours and on weekends will be handled by the Python Programmer staff on-call. Signed: Sandy Serna Internal Medicine PGY-3 Cardiovascular Medicine S2 Team Pager [phone] documented in this encounter Discharge Instructions * [...] Center 07/23/2021 8:20 AM Jaspreet Kinsey MD [facility] Your Inpatient Medical Team at [facility] Name(s) of your inpatient provider(s): Attending - Jose Rodrigues MD Fellow - Brody Bernard MD Resident - Sandy Serna MD Certified Neurodiagnostic Technologist - Sha Vale MD Your Primary Care Provider: JOCY Franco [phone] For questions regarding this document or issues relating to this hospitalization on the Medical Service, please contact your inpatient physician through the [facility] Battery Installer . Issues afterhours and on weekends will [...] as needed. fluticasone propionate (FLONASE) 50 mcg/actuation [place], [...] FORWARD: possible cardiac cath pain management monitor hall monitor I/O discharge planning as appropriate INDIVIDUALIZED [...] JOHN PCP: JOCY Franco PCP phone #: [phone] ID/Chief Complaint: Indira Roque is a 51 y.o. with hx of HFpEF, MARYLOU, who is admitted from [facility] with associated chest pain last night History [...] depressions on EKG. Indira was transferred to [facility] for further evaluation. Of note, the patient was just released from [facility] for chest pain on Wednesday06/09/2021. During that [...] DAILY ??? fluticasone propionate (FLONASE) 50 mcg/actuation [place], Suspension 1 spray, Each Nare, DAILY ??? [...] ??? Clobetasol Rash Family History: Father from [place] s/p multiple coronary stents at Social History: [...] Laboratory: CBC: Recent Labs 06/09/21 0337 06/08/21 04406/07/21 1726 WBC 7.9 11.3* 12.0* HGB 15.2 13.9 14.5 PLATELET 334 312 346 Chemistry: Recent Labs 06/09/21 0337 06/08/21 04406/07/21 1726 NA 137 138 137 K 4.1 [...] at coronary flow reserve Jose Rodrigues MD, [facility] Section of Cardiovascular Medicine [facility] Sports Marketing Internshipcommunity health planning director [facility] [employer] [facility] documented in this encounter Plan of Treatment Upcoming Encounters Date Type Department Care Team (Late st Contact Info) Description 07/19/2024 3:00 PM EDT Office [place] [address] [place] [address] Scheduled Referrals Name Type Priority Associated Diagnoses [...] Chest pain, unspecified type RAPID COVID-19 PCR (MH/APD/NLH) Routine 06/13/2021 1:09 PM EDT documented in this encounter Results * Magnesium (06/14/2021 5:13 AM EDT) Magnesium 0.90 0.69 - 1.07 mmol/L [facility] Blood Venous Draw / Unknown 06/14/2021 5:13 AM EDT 06/14/2021 5:25 AM EDT Narrative Resulting Agency Comment Spec In Lab Sandy Serna MD CHEMISTRY ORDER ARABELLA [facility] [place] [address] * (ABNORMAL) Troponin (06/14/2021 5:13 AM EDT) Troponin-T 0.04(H) 0.00 - 0.00 ng/mL [facility] [...] ischemia ?? New or presumed new significant TE-qjuhebr-X wave (ST-T) changes or new left bundle [...] additional sample may be indicated. Reference: Third Musella Definition of Myocardial Infarction. Journal of the [place] [employer] 2012;60:1581-98 Blood 06/14/2021 5:13 AM EDT 06/14/2021 5:19 AM EDT Narrative Resulting Agency Comment Spec In Lab Jose Rodrigues MD CHEMISTRY ORDERABLES Performing Organization Address [facility]/ZIP Co de Phone Number [facility] [place] [address] * Heparin (unfractionated) Level (06/14/2021 5:13 AM EDT) Pathologist [facility] UF Heparin 0.66 IU/mL [facility] Comment: Heparin [...] Lab Jose Rodrigues MD HEMATOLOGY ORDERABLE S [facility] [place] [address] * Differential, Automated (06/14/2021 5:13 AM EDT) Neutrophil % 62.5 % [facility] Neutrophil Absolute 4.36 1.70 - 6.10 x10(3)/[facility] Lymph % 24.1 % [facility] Lymphocytes Abs 1.7 0.9 - 3.2 x10(3)/[facility] Monocyte % 9.2 % [facility] Monocyte Abs 0.6 0.3 - 0.9 x10(3)/[facility] Eos % 2.9 % [facility] Eosinophils Abs 0.2 0.0 - 0.4 x10(3)/[facility] Basophil % 1.0 % [facility] Baso Absolute 0.1 0.0 - 0.1 x10(3)/[facility] Immature Gran % 0.30 % [facility] Comment: Immature granulocytes(IG's)percentage and absolute count will include metamyelocytes, myelocytes, and promyelocytes. Blood smears from CBCs yielding IG's will be scanned manually for concordance. If this scan disagrees with the automated IG or if promyelocytes are noted, a manual differential will be performed. Immature Gran Absolute 0.02 0.00 - 0.04 x10(3)/mcL [facility] Blood 06/14/2021 5:13 AM EDT 06/14/2021 5:19 AM EDT Narrative Resulting Agency Comment Spec In Lab Sha Vale MD HEMATOLOGY ORDERABLE S [facility] [place] [address] * (ABNORMAL) Hemogram (06/14/2021 5:13 AM EDT) White Blood Cell 7.0 4.0 - 9.5 x10(3)/mc L [facility] Red Blood Cell 4.94 4.00 - 5.21 x10(6)/[facility] Hemoglobin 15.2 11.7 - 15.5 g/dL [facility] Hematocrit 46.5(H) 35.7 - 45.8 % [facility] Mean Cell Volume 94.1 82.6 - 94.4 fL [facility] Mean Cell Hemoglobin 30.8 27.1 - 32.0 pg [facility] Mean Cell Hemoglobin Concentration 32.7 31.7 - 35.0 g/dL [facility] Platelet 252 145 - 357 x10(3)/[facility] RDW Standard Deviation 48.5(H) 37.0 - 46.0 fL [facility] RDW coefficient of variation 14.2(H) 11.5 - 14.1 % [facility] Mean Platelet Volume 10.4 7.6 - 12.9 fL [facility] NRBC% auto 0.0 % [facility] NRBC Absolute 0.000 0.000 - 0.000 x10(3)/ L [facility] Blood 06/14/2021 5:13 AM EDT 06/14/2021 5:19 AM EDT Narrative Resulting Agency Comment Spec In Lab Sha Vale MD HEMATOLOGY ORDERABLE S [facility] [place] [address] * (ABNORMAL) Basic Metabolic Panel (non-fasting) (06/14/2021 5:13 AM EDT) Glucose 98 65 - 199 mg/dL [facility] Comment:Diabetes: >=200 mg/d L plus symptoms Blood Urea Nitrogen 21(H) 8 - 18 mg/dL [facility] Creatinine 0.80 0.70 - 1.20 mg/dL [facility] Sodium 138 135 - 145 mmol/L [facility] Potassium 4.2 3.5 - 5.0 mmol/L [facility] Comment: Please note: ??Patients with WBC >100,000 may have falsely elevated Potassium levels. ??For accurate Potassium quantification in these patients send serum separator tube (gold top) for subsequent determinations. ??Contact the Clinical Chemistry Laboratory if there are any questions. Chloride 106 98 - 107 mmol/L [facility] Carbon Dioxide 19(L) 22 - 31 mmol/L [facility] Anion Gap 13 5 - 15 mmol/L [facility] Calcium 9.0 8.5 - 10.5 mg/dL [facility] Est Glomerular Filtration Rate 85 >=60 mL/min/1. 73 m?? [facility] [...] Rodrigues MD CHEMISTRY ORDERABLES Performing Organization Address [facility] Co de Phone Number [facility] [place] [address] * (ABNORMAL) Troponin (06/13/2021 9:41 PM EDT) Pathologist [facility] Troponin-T 0.04(H) 0.00 - 0.00 ng/mL [facility] [...] ischemia ?? New or presumed new significant ND-zfbdeqa-U wave (ST-T) changes or new left bundle [...] additional sample may be indicated. Reference: Third Musella Definition of Myocardial Infarction. Journal of the [place] [employer] 2012;60:1581-98 Blood 06/13/2021 9:41 PM EDT 06/13/2021 9:55 PM EDT Narrative Resulting Agency Comment Spec In Lab Jose Rodrigues MD CHEMISTRY ORDERABLES Performing Organization Address [facility] Co de Phone Number [facility] [place] [address] * Heparin (unfractionated) Level (06/13/2021 9:41 PM EDT) UF Heparin 0.33 IU/mL [facility] [...] Lab Jose Rodrigues MD HEMATOLOGY ORDERABLE S [facility] [place] [address] * XR Chest PA & Lateral (Generic) [...] questions please contact the health career development coordinator that requested your imaging first. ? Electronically signed by: ZENAIDA TAVARES [facility] ([phone]), at 06/14/2021 8:08 AM Narrative 06/14/2021 8:08 [...] have questions please contactthe health career development coordinator that requested your imaging first. Electronically signed by: ZENAIDA TAVARES [facility] ([phone]),at 06/14/2021 8:08 AM Jose Rodrigues MD IMG DX ORDERABLES * (ABNORMAL) Troponin (06/13/2021 6:40 PM EDT) Troponin-T 0.04(H) 0.00 - 0.00 ng/mL [facility] [...] ischemia ?? New or presumed new significant OU-upalqam-T wave (ST-T) changes or new left bundle [...] additional sample may be indicated. Reference: Third Musella Definition of Myocardial Infarction. Journal of the [place] [employer] 2012;60:1581-98 Blood 06/13/2021 6:40 PM EDT 06/13/2021 6:46 PM EDT Narrative Resulting Agency Comment Spec In Lab Jose Rodrigues MD CHEMISTRY ORDERABLES Performing Organization Address [facility] Co de Phone Number [facility] [place] [address] * T4, free (06/13/2021 3:26 PM EDT) Free T4 1.08 0.93 - 1.70 ng/dL [facility] Comment: Reference Interval (ng/dL): Females: ??First Trimester: 0.97-1.68 ??Second Trimester: 0.77-1.51 ??Third Trimester: 0.77-1.49 Blood 06/13/2021 3:26 PM EDT 06/13/2021 3:52 PM EDT Narrative Resulting Agency Comment Spec In Lab Sha Vale MD CHEMISTRY ORDERABLES Performing Organization Address [facility] Co de Phone Number [facility] [place] [address] * Heparin (unfractionated) Level (06/13/2021 3:26 PM EDT) UF Heparin <0.04 IU/mL [facility] Comment: Specimen [...] Lab Jose Rodrigues MD HEMATOLOGY ORDERABLE S [facility] [place] [address] * Bilirubin, Direct (06/13/2021 3:26 PM EDT) Pathologist [facility] Bilirubin, Direct 0.1 0.0 - 0.3 mg/dL [facility] Blood Venous Draw / Unknown 06/13/2021 3:26 PM EDT 06/13/2021 3:39 PM EDT Narrative Resulting Agency Comment Spec In Lab Sha Vale MD CHEMISTRY ORDERABLES Performing Organization Address City/[facility]/ZIP Co de Phone Number [facility] [place] [address] * (ABNORMAL) Comprehensive metabolic panel (non-fasting) (06/13/2021 3:26 PM EDT) [facility] Glucose 77 65 - 199 mg/dL [facility] Comment:Diabetes: >=200 mg/d L plus symptoms Blood Urea Nitrogen 20(H) 8 - 18 mg/dL [facility] Creatinine 0.88 0.70 - 1.20 mg/dL [facility] Sodium 137 135 - 145 mmol/L [facility] Potassium 4.4 3.5 - 5.0 mmol/L [facility] Comment: Please note: ??Patients with WBC >100,000 may have falsely elevated Potassium levels. ??For accurate Potassium quantification in these patients send serum separator tube (gold top) for subsequent determinations. ??Contact the Clinical Chemistry Laboratory if there are any questions. Chloride 102 98 - 107 mmol/L [facility] Carbon Dioxide 17(L) 22 - 31 mmol/L [facility] Anion Gap 18(H) 5 - 15 mmol/L [facility] Calcium 9.2 8.5 - 10.5 mg/dL [facility] Protein, Total 7.4 6.1 - 8.0 g/dL [facility] Albumin 4.0 3.2 - 5.2 g/dL [facility] Aspartate Aminotransferase 44(H) 0 - 30 unit/L [facility] Alanine Aminotransferase 31(H) 0 - 30 unit/L [facility] Alkaline Phosphatase 70 35 - 105 unit/L [facility] Bilirubin, Total 0.4 0.2 - 1.3 mg/dL [facility] Est Glomerular Filtration Rate 76 >=60 mL/min/1. 73 m?? [facility] [...] Vale MD CHEMISTRY ORDERABLES Performing Organization Address [facility] Co de Phone Number [facility] [place] [address] * (ABNORMAL) pro-Brain Natriuretic Peptide (06/13/2021 3:26 PM EDT) NT-proBNP 2,479(H) <=124 pg/mL [facility] Blood Venous Draw / Unknown 06/13/2021 3:26 PM EDT 06/13/2021 3:39 PM EDT Narrative Resulting Agency Comment Spec In Lab Sha Vale MD CHEMISTRY ORDERABLES Performing Organization Address [facility] Co de Phone Number [facility] [place] [address] * Magnesium (06/13/2021 3:26 PM EDT) Magnesium 0.93 0.69 - 1.07 mmol/L [facility] Blood Venous Draw / Unknown 06/13/2021 3:26 PM EDT 06/13/2021 3:39 PM EDT Narrative Resulting Agency Comment Spec In Lab Sha Vale MD CHEMISTRY ORDERABLES Performing Organization Address [facility] Co de Phone Number [facility] [place] [address] * Phosphorus (06/13/2021 3:26 PM EDT) Phosphorus 3.6 2.5 - 4.5 mg/dL [facility] Blood Venous Draw / Unknown 06/13/2021 3:26 PM EDT 06/13/2021 3:39 PM EDT Narrative Resulting Agency Comment Spec In Lab Sha Vale MD CHEMISTRY ORDERABLES Performing Organization Address [facility] Co de Phone Number [facility] [place] [address] * APTT (06/13/2021 3:26 PM EDT) Partial Thromboplastin Time 29 25 - 37 sec [facility] Comment: The PTT is NOT appropriate for heparin monitoring. Use the Anti-Xa level for heparin monitoring (HEP UFH) or LMWH monitoring (HEP LMW). A PTT less than 37 seconds generally indicates adequate hemostasis. Blood 06/13/2021 3:26 PM EDT 06/13/2021 3:36 PM EDT Narrative Resulting Agency Comment Spec In Lab Jose Rodrigues MD HEMATOLOGY ORDERABLE S Performing Organization Address [facility] Co de Phone Number [facility] [place] [address] * Prothrombin Time (06/13/2021 3:26 PM EDT) Prothrombin Time 12.4 9.4 - 12.5 sec [facility] International Normalization Ratio 1.1 [facility] Comment: An [...] ORDERABLE S Performing Organization Address City/[facility] Co de Phone Number [facility] [place] [address] * (ABNORMAL) TSH Gates (06/13/2021 3:26 PM EDT) Thyroid Stimulating Hormone 6.47(H) 0.27 - 4.20 mcIU/mL [facility] Comment: Reference Interval (mcIU/mL): Females: ??First Trimester: 0.23-3.88 ??Second Trimester: 0.22-3.90 ??Third Trimester: 0.44-4.66 Blood 06/13/2021 3:26 PM EDT 06/13/2021 3:37 PM EDT Narrative Resulting Agency Comment Spec In Lab Jose Rodrigues MD CHEMISTRY ORDERABLES [facility] [place] [address] * Differential, Automated (06/13/2021 3:26 PM EDT) Neutrophil % 64.4 % [facility] Neutrophil Absolute 4.05 1.70 - 6.10 x10(3)/[facility] Lymph % 22.6 % [facility] Lymphocytes Abs 1.4 0.9 - 3.2 x10(3)/[facility] Monocyte % 10.0 % [facility] Monocyte Abs 0.6 0.3 - 0.9 x10(3)/[facility] Eos % 1.8 % [facility] Eosinophils Abs 0.1 0.0 - 0.4 x10(3)/[facility] Basophil % 1.0 % [facility] Baso Absolute 0.1 0.0 - 0.1 x10(3)/[facility] Immature Gran % 0.20 % [facility] Comment: Immature granulocytes(IG's)percentage and absolute count will include metamyelocytes, myelocytes, and promyelocytes. Blood smears from CBCs yielding IG's will be scanned manually for concordance. If this scan disagrees with the automated IG or if promyelocytes are noted, a manual differential will be performed. Immature Gran Absolute 0.01 0.00 - 0.04 x10(3)/[facility] Blood 06/13/2021 3:26 PM EDT 06/13/2021 3:37 PM EDT Narrative Resulting Agency Comment Spec In Lab Sha Vale MD HEMATOLOGY ORDERABLE S [facility] [place] [address] * (ABNORMAL) Hemogram (06/13/2021 3:26 PM EDT) White Blood Cell 6.3 4.0 - 9.5 x10(3)/[facility] Red Blood Cell 5.27(H) 4.00 - 5.21 x10(6)/[facility] Hemoglobin 16.1(H) 11.7 - 15.5 g/dL [facility] Hematocrit 49.7(H) 35.7 - 45.8 % [facility] Mean Cell Volume 94.3 82.6 - 94.4 fL [facility] Mean Cell Hemoglobin 30.6 27.1 - 32.0 pg [facility] Mean Cell Hemoglobin Concentration 32.4 31.7 - 35.0 g/dL [facility] Platelet 237 145 - 357 x10(3)/[facility] RDW Standard Deviation 49.1(H) 37.0 - 46.0 fL [facility] RDW coefficient of variation 14.2(H) 11.5 - 14.1 % [facility] Mean Platelet Volume 11.3 7.6 - 12.9 fL [facility] NRBC% auto 0.0 % [facility] NRBC Absolute 0.000 0.000 - 0.000 x10(3)/ L [facility] Blood 06/13/2021 3:26 PM EDT 06/13/2021 3:37 PM EDT Narrative Resulting Agency Comment Spec In Lab Sha Vale MD HEMATOLOGY ORDERABLE S Performing Organization Address City/[facility]/ZIP Co de Phone Number [facility] [place] [address] * (ABNORMAL) Troponin (06/13/2021 3:26 PM EDT) [facility] Troponin-T 0.04(H) 0.00 - 0.00 ng/mL [facility] [...] ischemia ?? New or presumed new significant YF-[id number]-R wave (ST-T) changes or new left bundle [...] additional sample may be indicated. Reference: Third Musella Definition of Myocardial Infarction. Journal of the [place] [employer] 2012;60:1581-98 Blood 06/13/2021 3:26 PM EDT 06/13/2021 3:37 PM EDT Narrative Resulting Agency Comment Spec In Lab Jose Rodrigues MD CHEMISTRY ORDERABLES Performing Organization Address [facility]/ZIP Co de Phone Number [facility] [place] [address] * EKG 12 Lead (06/13/2021 2:18 PM EDT) Ventricular rate 48 BPM MUSE SYSTEM Atrial Rate 48 BPM MUSE SYSTEM P-R Interval 196 ms MUSE SYSTEM QRS Duration 84 ms MUSE SYSTEM Q-T Interval 498 ms MUSE SYSTEM QTC Calculated (Bezet) 444 ms MUSE SYSTEM Calculated P Alcova 1 degrees MUSE SYSTEM Calculated R Alcova 27 degrees MUSE SYSTEM Calculated T Alcova -27 degrees MUSE SYSTEM INTERPRETATION Sinus bradycardia Nonspecific ST and T wave abnormality Abnormal ECG When compared with ECG of 07-JUN-2021 16:33, No significant change was found I personally reviewed the tracing and edited the fellows interpretation Confirmed by fellow Jaspreet Grimm ([id number]) on 06/16/2021 1:34:45 PM Confirmed by MD Angelo Danette ([id number]) on 06/16/2021 1:39:20 PM MUSE SYSTEM 06/13/2021 2:18 PM EDT 06/16/2021 1:39 PM EDT Jose Rodrigues MD ECG ORDERABLES MUSE SYSTEM * COVID-19 PCR (06/13/2021 1:09 PM EDT) SARS-CoV-2 RNA (Rapid) Not Detected Not Detected [facility] [...] using the Simplexa COVID-19 Direct Assay by [employer] as authorized by the FDA issued Emergency [...] of Pathology and Laboratory Medicine at [facility], certified under the Clinical Laboratory Improvement Amendments [...] fact sheets at the following FDA website: https://www.fda.gov/medical-devices/jptyxzmckxw-tkockif-7129-agqew-20-bafwnohjl- use-a aaoslfkkuumvn-krohucp-sbznifq/kgitl-xmazkmriahj-gbtj SARS-CoV-2 Source RETURNED GOODS RECEIVING CLERK Swab MA RY [facility] Nasopharyngeal Swab 06/14/19 1:09 PM EDT 06/13/2021 1:45 PM EDT Comment:Symptoms->Surveillan ce Narrative Resulting Agency Comment Spec In Lab Jose Rodrigues MD MICROBIOLOGY - GENER AL ORDERABLES Performing Organization Address City/State/[facility] Co de Phone Number [facility] [place] [address] documented in this encounter Visit Diagnoses Diagnosis [...] 1416 (Given - Provider: Katalina Wilkinson RN) 09 (Given - Provider: Katalina Wilkinson RN) metoprolol tartrate (Lopressor) tablet 12.5 mg 12.5 mg, Oral, EVERY 12 HOURS SCHEDULED (2 times per day), First dose on Wed06/13/21 at 2100, Until Discontinued, Hold for sbp<90, hr<60, Routine 2056 (Given - Provider: Dee Raymond RN) 102 (Given - Provider: Katalina Wilkinson RN - Comment: okayteja w/ fiorella) rOPINIRole (Requip) tablet 2 mg 2 [...] Annalisa Chris)0513 (Rate/Dose Verify - Provider: Dee Raymond, RN)0600 (Rate/Dose Verify - Provider: Dee Raymond, ERWIN)0930 (Stopped - Provider: Katalina Wilkinson RN) PRN [...] Routine documented in this encounter Care Teams Activities Director Scouting Relationship Specialty Start Date End Date Polo Pearce PA [address] [place] [address] PCP - General Internal Medicine 06/09/21 documented as of this encounter
--- OUTSIDE RECORDS SUMMARY | 2024-04-10 17:11 | XMS_ITS | Encounter Summary ---
[place] [address] Care Team Providers Care Undercover Cop Name Role Phone Polo Pearce Primary Care Provider [phone] Encounter Details Date Type Department Care Team (Late st Contact Info) Description 09/16/2021 Telephone Cardiology at [address] [phone] Jaspreet Kinsey MD [facility] [address] Social History Tobacco Use Types Packs/Day Years [...] so can she have it here at [facility]. She left her work number for calling her back during the day: [phone]. Or you may leave a message on her cell phone: [phone]. documented in this encounter Plan of Treatment Upcoming Encounters Date Type Department Care Team (Late st Contact Info) Description 07/19/2024 3:00 PM EDT Office [place] [address] [place] [address] documented as of this encounter Visit Diagnoses Not on filedocumented in this encounter Care Teams Undercover Cop Relationship Specialty Start Date End Date Polo Pearce PA [address] [place] [address] PCP - General Internal Medicine 06/09/21 documented as of this encounter
--- OUTSIDE RECORDS SUMMARY | 2024-04-10 17:11 | XMS_ITS | Encounter Summary ---
[place] [address] Care Team Providers Care Maintenance Inspector Name Role Phone Polo Pearce Primary Care Provider [phone] Encounter Details Date Type Department Care Team (Late st Contact Info) Description 06/10/2021 Telephone Cardiology at [address] [address] Lashonda Menjivar RN Social History Tobacco Use [...] prescription for 90 days of Jardiance, to [facility]. Prescription pended. Lashonda Menjivar (Jodie), RN, BSN [facility] documented in this encounter Plan of Treatment Upcoming Encounters Date Type Department Care Team (Late st Contact Info) Description 07/19/2024 3:00 PM EDT Office [place] [address] Mary Reyes, [place] [address] documented as of this encounter Visit Diagnoses Not on filedocumented in this encounter Care Teams Maintenance Inspector Relationship Specialty Start Date End Date Polo Pearce PA [address] [address] PCP - General Internal Medicine 06/09/21 documented as of this encounter
--- OUTSIDE RECORDS SUMMARY | 2024-04-10 17:11 | XMS_ITS | Encounter Summary ---
[place] [address] Care Team Providers Care Building Coordinator Name Role Phone Polo Pearce Primary Care Provider [phone] Reason for Visit * Reason Onset Date Comments Medication Refill 06/10/2021 Jardiance Encounter Details Date Type Department Care Team (Late st Contact Info) Description 06/10/2021 Refill Cardiology at [address] [phone] Deja Zaidi, JOCY [address] [id number] Medication Refill (Jardiance) Social History Tobacco Use [...] 3:00 PM EDT Office [place] [address] [place] [address] documented as of this encounter Visit Diagnoses Diagnosis Chronic heart failure with preserved ejection fraction documented in this encounter Care Teams Building Coordinator Relationship Specialty Start Date End Date Polo Pearce PA [address] [place] [address] PCP - General Internal Medicine 06/09/21 documented as of this encounter
--- OUTSIDE RECORDS SUMMARY | 2024-04-10 17:11 | XMS_ITS | Encounter Summary ---
Author Organization [facility] [place] [address] Care Team Providers Care Ict Support Technicians Name Role Phone Polo Pearce Primary Care Provider [phone] Encounter Details Date Type Department Care Team (Late st Contact Info) Description 12/30/2021 Telephone Cardiology at [address] [phone] Ciro Lovell MD [facility] [place] [address] Social History Tobacco Use Types Packs/Day Years [...] 51 year old female with mild PAH ([facility] 06/2021) without e/o parenchymal lung disease or L-sided dysfunction, ? Prior MT, C2 obesity, spastic lung disease and MARYLOU/HS [...] 3:00 PM EDT Office Visit [place] [address] Mary Reyes, [place] [address] documented as of this encounter Visit Diagnoses Not on filedocumented in this encounter Care Teams Ict Support Technicians Relationship Specialty Start Date End Date Polo Pearce PA [address] [place] [address] PCP - General Internal Medicine 06/09/21 documented as of this encounter
--- OUTSIDE RECORDS SUMMARY | 2024-04-10 17:11 | XMS_ITS | Encounter Summary ---
Author Organization [facility] [place] [address] Care Team Providers Care Cottage Master Name Role Phone Polo Pearce Primary Care Provider [phone] Encounter Details Date Type Department Care Team (Late st Contact Info) Description 06/13/2021 Telephone Cardiology at [address] [address] Chayo Dominguez PA [facility] [place] [address] Social History Tobacco Use Types Packs/Day Years [...] Referring Provider: Dr. Gale Trinh Patient Location: [facility] See Dr. Mejia's telephone encounter note [...] Of note, she was recently admitted to [facility] for evaluation of angina and discharged 06/08/21. At that time she initially presented to [facility] where she was noted to have [...] management. Chayo Chappell PA-C Cardiovascular Medicine Pager [phone] 06/13/2021 documented in this encounter Plan of Treatment Upcoming Encounters Date Type Department Care Team (Late st Contact Info) Description 07/19/2024 3:00 PM EDT Office Visit [place] [address] Mary Reyes, [place] [address] documented as of this encounter Visit Diagnoses Not on filedocumented in this encounter Care Teams Cottage Master Relationship Specialty Start Date End Date Polo Pearce PA [address] [place] [address] PCP - General Internal Medicine 06/09/21 documented as of this encounter
--- OUTSIDE RECORDS SUMMARY | 2024-04-10 17:11 | XMS_ITS | Encounter Summary ---
Author Organization [facility] [place] [address] Care Team Providers Care Plastics Tooling Engineer Name Role Phone Polo Pearce Primary Care Provider [phone] Encounter Details Date Type Department Care Team (Late st Contact Info) Description 03/10/2022 [place] [address] Social History Tobacco Use Types Packs/Day Years [...] 3:00 PM EDT Office [place] [address] [place] [address] documented as of this encounter Procedures Procedure Name Priority Date/Time Associated Diagnosis Comments ECG SCAN Routine 03/10/2022 documented in this encounter Results * Scan Doc: ECG (03/10/2022) Historical Provider MEDIA MGR SCAN EX T ORDR/RSLT documented in this encounter Visit Diagnoses Not on filedocumented in this encounter Care Teams Plastics Tooling Engineer Relationship Specialty Start Date End Date Polo Pearce PA [address] [place] [address] PCP - General Internal Medicine 06/09/21 documented as of this encounter
--- OUTSIDE RECORDS SUMMARY | 2024-04-10 17:11 | XMS_ITS | Encounter Summary ---
[place] [address] Care Team Providers Care Loan Auditor Name Role Phone Polo Pearce Primary Care Provider [phone] Encounter Details Date Type Department Care Team (Late st Contact Info) Description 12/31/2021 Orders Only Cardiology at [address] [phone] Umberto Joy PA [facility] [place] [address] SVT (supraventricular tachycardia) Social History Tobacco Use [...] 3:00 PM EDT Office [place] [phone] Mary Reyes APRN [facility] [place] [address] documented as of this encounter Procedures Procedure [...] Lovell. Interpretation Summary Limited echocardiogram performed by television cabinet finisher fellow. 1. LV appears globally hypokinetic. Visually estimated LVEF 40%. 2. RV is not well visualized, but appears mildly reduced in global systolic function. Recommend comprehensive echo. Procedure Note Willy Gómez MD - 01/05/2022 Echocardiogram Report Name: LOIDA ROQUE Study Date: 12/30/2021 11:29PM : 1970 Age: 51 yrs Gender: Female Interpreting Fellow: Ciro Lovell. Interpretation Summary Limited echocardiogram performed by television cabinet finisher fellow. 1. LV appears globally hypokinetic. Visually estimated LVEF 40%. 2. RV is not well visualized, but appears mildly reduced in globalsystolic function. Recommend comprehensive echo. Unknown ECHO ORDERABLES documented in this encounter Visit Diagnoses Diagnosis SVT (supraventricular tachycardia) Other specified cardiac dysrhythmias documented in this encounter Care Teams Loan Auditor Relationship Specialty Start Date End Date Polo Pearce PA [address] [place] [address] PCP - General Internal Medicine 06/09/21 documented as of this encounter
--- OUTSIDE RECORDS SUMMARY | 2024-04-10 17:11 | XMS_ITS | Encounter Summary ---
Author Organization [facility] Address [facility] [place] [address] Care Team Providers Care Underwriting Specialist Name Role Phone Polo Pearce Primary Care Provider [phone] Reason for Visit * Reason Comments Congestive Heart Failure HFpEF Palpitations SVT/AVNRT * Consultation (Routine) - Closed Specialty Diagnoses / Procedures Referred By Jayant harris Referred To Contact Cardiology Diagnoses HFp EF Procedures NEW PATIENT Mario Hallman MD [facility] [place] [address] Jaspreet Kinsey MD [facility] [place] [address] Referral ID Status Reason Start Date Expiration Date Visits Re quested Visits Authorized [id number] Closed 07/23/2021 07/23/2022 1 1 Encounter Details Date Type Department Care Team (Late st Contact Info) Description 07/23/2021 8:20 AM EDT Office Visit Cardiology at [address] [phone] Jaspreet Kinsey MD [facility] [place] [address] Heart failure with preserved ejection [...] fraction 05/2021: subacute, presented to [facility] with RUQ pain, weight gain, and progressive [...] needed. ??? fluticasone propionate (FLONASE) 50 mcg/actuation [place], Suspension 1 spray by Each Nare route [...] hfpef and svt She presented to [facility] end of May with subacute RUQ pain [...] PM EDT Office [place] [address] Mary Reyes [place] [place] [address] documented as of this encounter Visit Diagnoses Diagnosis Heart failure with preserved ejection fraction, unspecified HF chronicity SVT (supraventricular tachycardia) Other specified cardiac dysrhythmias documented in this encounter Care Teams Underwriting Specialist Relationship Specialty Start Date End Date Polo Pearce PA [address] [facility] [address] [place] [address] PCP - General Internal Medicine 06/09/21 documented as of this encounter
--- OUTSIDE RECORDS SUMMARY | 2024-04-10 17:11 | XMS_ITS | Encounter Summary ---
[place] [address] Care Team Providers Care Directory Clerk Name Role Phone Polo Pearce Primary Care Provider [phone] Encounter Details Date Type Department Care Team (Late st Contact Info) Description 03/11/2022 Orders Only Cardiology at [address] [phone] Jed Tovar MD [facility] [place] [address] SVT (supraventricular tachycardia) Social History Tobacco Use [...] 3:00 PM EDT Office [place] [phone] Mary Reyes APRN [facility] [place] [address] documented as of this encounter Visit Diagnoses Diagnosis SVT (supraventricular tachycardia) Other specified cardiac dysrhythmias documented in this encounter Care Teams Directory Clerk Relationship Specialty Start Date End Date Polo Pearce PA [address] [place] [address] PCP - General Internal Medicine 06/09/21 documented as of this encounter
--- OUTSIDE RECORDS SUMMARY | 2024-04-10 17:11 | XMS_ITS | Encounter Summary ---
Author Organization [facility] [place] [address] Care Team Providers Care Recruitment And Outreach Assistant Name Role Phone Polo Pearce Primary Care Provider [phone] Encounter Details Date Type Department Care Team (Late st Contact Info) Description 12/30/2021 External [place] [address] Social History Tobacco Use Types Packs/Day Years [...] 3:00 PM EDT Office [place] [address] [place] [address] documented as of this encounter Procedures Procedure Name Priority Date/Time Associated Diagnosis Comments ECG SCAN Routine 12/30/2021 documented in this encounter Results * Scan Doc: ECG (12/30/2021) Historical Provider MEDIA MGR SCAN EX T ORDR/RSLT documented in this encounter Visit Diagnoses Not on filedocumented in this encounter Care Teams Recruitment And Outreach Assistant Relationship Specialty Start Date End Date Polo Pearce PA [address] [place] [address] PCP - General Internal Medicine 06/09/21 documented as of this encounter
--- OUTSIDE RECORDS SUMMARY | 2024-04-10 17:11 | XMS_ITS | Encounter Summary ---
[place] [address] Care Team Providers Care Operations Team Leader Name Role Phone Polo Pearce Primary Care Provider [phone] Encounter Details Date Type Department Care Team (Late st Contact Info) Description 06/12/2021 External [place] [address] Social History Tobacco Use Types Packs/Day Years [...] 3:00 PM EDT Office [place] [address] [place] [address] documented as of this encounter Procedures Procedure Name Priority Date/Time Associated Diagnosis Comments ECG SCAN Routine 06/12/2021 documented in this encounter Results * Scan Doc: ECG (06/12/2021) Historical Provider MD MEDIA MGR SCAN EX T ORDR/RSLT documented in this encounter Visit Diagnoses Not on filedocumented in this encounter Care Teams Operations Team Leader Relationship Specialty Start Date End Date Polo Pearce PA [address] [place] [address] PCP - General Internal Medicine 06/09/21 documented as of this encounter
--- OUTSIDE RECORDS SUMMARY | 2024-04-10 17:11 | XMS_ITS | Encounter Summary ---
Author Organization [facility] [place] [address] Care Team Providers Care Magician/Illusionist Name Role Phone Polo Pearce Primary Care Provider [phone] Encounter Details Date Type Department Care Team (Late st Contact Info) Description 09/17/2021 Telephone Cardiology at [address] [address] Jaspreet Kinsey MD [facility] [address] Social History Tobacco Use Types Packs/Day Years [...] Please call on her work phone @ [phone]. Or you may leave a message on her cell phone @ [phone] documented in this encounter Plan of Treatment Upcoming Encounters Date Type Department Care Team (Late st Contact Info) Description 07/19/2024 3:00 PM EDT Office [place] [address] [place] [address] documented as of this encounter Visit Diagnoses Not on filedocumented in this encounter Care Teams Magician/Illusionist Relationship Specialty Start Date End Date Polo Pearce PA [facility] [address] [facility] [address] [place] [address] PCP - General Internal Medicine 06/09/21 documented as of this encounter
--- OUTSIDE RECORDS SUMMARY | 2024-04-10 17:11 | XMS_ITS | Encounter Summary ---
[place] [address] Care Team Providers Care Campaign Worker Name Role Phone Polo Pearce Primary Care Provider [phone] Reason for Visit * Auth/Cert Specialty Diagnoses / Procedures Referred By Jayant harris Referred To Contact Diagnoses NSTEMI (non-ST elevated myocardial infarction) Chest Pain Procedures EMERGENCY IPI Sobeida Jimenez MD [facility] Referral ID Status Reason Start Date Expiration Date Visits Re quested Visits Authorized [id number] 1 1 Encounter Details Date Type Department Care Team (Latest Contact Info) Description 12/30/2021 10:41 PM EDT - 01/01/2022 2:24 PM EDT Hospital Encounter [place] [phone] Sobeida Jimenez MD SVT (supraventricular tachycardia); Non-ST elevation SD (NSTEMI); NSTEMI (non-ST elevated myocardial infarction); Acute [...] Loida Madrigal Patient Age: 51 y.o. Language: Ukrainian Race: [...] Contact Information: J[address] / [facility] [id number] Pending Studies and Lab Data: Official Ankle [...] abdomen ??? Restless legs ??? Non-ST elevation SD (NSTEMI) ??? Asthma ??? Rhinitis, nonallergic, chronic [...] plavix 600 with plan to transfer to [facility] for furthermanagement. Pertinent prior studies below: ?? [...] ?611 ?PVR ?331 ? Hospital Course: Loida Madrigal was admitted to the Cardiology service on 12/30/2021. The following issues were addressed and she was discharged on 01/01/2022. #NSTEMI, Type II Patient initially presented to the [facility] ED on 12/30 with chest pain. Initial [...] 06:52 AMBP: 109/62 mmHg Patient Location: [facility]^C450^B : 1970 Height: 163 cm Account: [id number] Age: 51 yrs Weight: 100 kg Gender: Female BSA: 2.0 m2 Ordering Physician: SOBEIDA JIMENEZ Referring Physician: KARIN ESPINOSA Performed By: HAIM Harris Reason For Study: Acute on chronic heart failure with preserved ejection fraction Exam Location: [facility]. Interpretation Summary -Left ventricle is of [...] the prior study from 06/09/21 ?? Procedure Complete-35043. Satisfactory quality. There is sinus bradycardia. ?? [...] Important Studies and Lab Data: Recent Labs 01/01/2241412/31/21 0020 WBC 6.2 7.9 HGB 13.9 13.3 HCT 41.3 39.1 PLATELET 204 209 Recent Labs 01/01/22 0856 01/01/2241412/31/21 0020 NA -- 137 140 K -- 4.0 4.1 CL -- 109* 110* CO2 -- 15* 17* BUN -- * 22* CREATININE -- 1.04 0.95 MAGNESIUM 0.96 -- 0.87 PHOS -- -- 3.5 No results for input(s): BILITOT, BILIDIR, AST, ALT, ALKPHOS in the last 168 hours. Recent Labs 12/31/21 002 INR 1.1 PTT 90* Recent Labs 12/31/21 0020 HA1C 5.7* Recent Labs 12/31/21 0020 TSH 7.36* Recent Labs 12/31/21 0020 HDL [...] who have questions please contact the health grounds caretaker that requested your imaging first. Electronically signed by: Olive Barrera MD, [facility] ([phone]), at 01/01/2022 1:56 PM Discharge Conditions/Prognosis: Upon [...] scheduled with both your PCP and your center specialists in the outpatient setting within the next [...] appointments: During 8am-5pm Wednesday through Wednesday call [phone] to speak with a nurse in the cardiology clinic All other times call [phone] and ask to speak to the engineer chief occupational therapist assistant. Follow up Appointments: Future Appointments Date Time Provider Department Center 01/21/2022 9:00 AM Jaspreet Kinsey MD 01/12/2022, Appointment with Mr. Deerick Ramses Revenue Stamper: Dr. Jaspreet Kinsey PCP: JOCY Franco at [phone] Your Inpatient Doctor(s) at [facility]: Sobeida Jimenez MD - Attending physician Dr. Paris Guerra MD - Resident Physician Dr. Yoslein Gómez DO, Resident Physician Dr. Edwin Mcghee MD, Fellow Physician Your Primary Care Provider: JOCY Franco DR [facility] / [facility] [address] For questions regarding issues relating to your hospitalization on the Hospital Medicine Service, please contact your inpatient physician through the [facility] Computer Systems Manager [phone]. Issues after hours and on weekends will be handled by the Hospitalist staff on-call. General Instructions None Future Appointments and Orders Future Appointments and Orders Future Appointments Provider Department Dept Phone 01/21/2022 9:00 AM Jaspreet Kinsey MD Cardiology at [place] Arrive at: [facility] [address] [phone] Inpatient Provider Contact Information: Deven Guerra Jr, MD Internal Medicine, PGY-3 [facility], pager [phone] Discharge References/Attachments: Discharge References/Attachments None documented in [...] scheduled with both your PCP and your center specialists in the outpatient setting within the next [...] appointments: During 8am-5pm Wednesday through Wednesday call [phone] to speak with a nurse in the cardiology clinic All other times call [phone] and ask to speak to the engineer chief occupational therapist assistant. Follow up Appointments: Future Appointments Date Time Provider Department Center 01/21/2022 9:00 AM Jaspreet Kinsey MD 01/12/2022, Appointment with Polo Pearce Revenue Stamper: Dr. Jaspreet Kinsey PCP: JOCY Franco at [phone] Your Inpatient Doctor(s) at [facility]: Sobeida Jimenez MD - Attending physician Dr. Paris Guerra MD - Resident Physician Dr. Yoselin Gómez DO, Resident Physician Dr. Edwin Mcghee MD, Fellow Physician Your Primary Care Provider: JOCY Franco [address] [facility] / [facility] [address] For questions regarding issues relating to your hospitalization on the Hospital Medicine Service, please contact your inpatient physician through the [facility] Computer Systems Manager [phone]. Issues after hours and on weekends will [...] as needed. fluticasone propionate (FLONASE) 50 mcg/actuation [place], Suspension 1 spray by Each Nare route [...] Jr, MD 01/01/22 2:12 PM * Delmi Kim, [facility] - 12/31/2021 2:44 AM EDTSummary: NIV Pt [...] 1970 PCP: JOCY Franco PCP phone number: [phone] Date of Admission: 12/30/2021 ( Hospital Day [...] fraction Overview Note: 05/2021: subacute, presented to [facility] with RUQ pain, weight gain, and progressive dyspnea. Noted to caryr most fluid in abdomen ??? Restless legs ??? Non-ST elevation SD (NSTEMI) ??? Asthma ??? Rhinitis, nonallergic, chronic [...] plavix 600 with plan to transfer to [facility] for furthermanagement. Pertinent prior studies below: ?? [...] ?? LHC 2019 clean coronaries ?? 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 ??? fluticasone propionate (FLONASE) 50 mcg/actuation [place], Suspension 1 spray by Each Nare route [...] ??? heparin (porcine) infusion 1,000 Units/hr (12/30/21 7382) PRN Meds: lidocaine, nitroGLYcerin, sodium chloride 0.9 [...] obesity, AVNRT presented with CP and palpitations [facility] 2019: normal cors [facility] [...] Pt has no PRN meds for pain, made aware and no orders put in. TTE done at bedside today. BM today. Pt up to toilet. Diet order placed, cardiac/[facility] diet. PRN ibuprofen ordered and given to [...] COVID test: Lab Results Component Value Date [id number] Not Detected 06/13/2021 Present on Admission: ??? 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 Current Living Arrangements: home/apartment/condo. Accessibility Concerns:no concerns. Current DME: none [address] [facility] [address] Social & Family Supports: Extended Emergency Contact Information Primary Emergency Contact: Boby Madrigal Mobile Relation: Spouse Secondary Emergency Contact: ALYSSA TALI Mobile Relation: Mother Current Care Provided by: [...] private car when medically ready. Registered Nurse Client Services Specialist / Crystal Evaluator will continue to follow patient???s progress and remain available if situation changes for coordination of care, psychosocial support and/or discharge planning. Office of Care Management documented in this encounter Plan of Treatment Upcoming Encounters Date Type Department Care Team (Late st Contact Info) Description 07/19/2024 3:00 PM EDT Office [place] [phone] [place] [address] documented as of this encounter Procedures Procedure [...] who have questions please contact the health grounds caretaker that requested your imaging first. ? Electronically signed by: Olive Barrera MD, [facility] ([phone]), at 01/01/2022 1:56 PM Narrative 01/01/2022 1:56 [...] patients who have questions please contactthe health grounds caretaker that requested your imaging first. Sobeida Jimenez MD IMG DX ORDERABLES * Magnesium (01/01/2022 8:56 AM EDT) Magnesium 0.96 0.69 - 1.07 mmol/L [facility] Blood 01/01/2022 8:56 AM EDT 01/01/2022 9:19 AM EDT Narrative Resulting Agency Comment Spec In Lab Sobeida Jimenez MD CHEMISTRY ORDERABLES Performing Organization Address City/[facility]/ZIP Co de Phone Number [facility] [place] [address] * Differential, Automated (01/01/2022 4:15 AM EDT) Neutrophil % 59.8 % [facility] Neutrophil Absolute 3.72 1.70 - 6.10 x10(3)/[facility] Lymph % 26.0 % [facility] Lymphocytes Abs 1.6 0.9 - 3.2 x10(3)/[facility] Monocyte % 8.7 % [facility] Monocyte Abs 0.5 0.3 - 0.9 x10(3)/[facility] Eos % 4.5 % [facility] Eosinophils Abs 0.3 0.0 - 0.4 x10(3)/[facility] Basophil % 0.8 % [facility] Baso Absolute 0.0 0.0 - [...] HEMATOLOGY ORDERABL ES [facility] [place] [address] * Hemogram (01/01/2022 4:15 AM EDT) [facility] White Blood Cell 6.2 4.0 - 9.5 [...] HOSPITAL LABORATORY Platelet 204 145 - 357 x10(3)/[facility] RDW Standard Deviation 43.4 37.0 - [address] [facility] RDW coefficient of variation 12.6 11.5 - 14.1 % [facility] Mean Platelet Volume 10.6 7.6 - 12.[address] [facility] NRBC% auto 0.0 % [facility] NRBC Absolute 0.000 0.000 - 0.000 x10(3)/[facility] Blood 01/01/2022 4:15 AM EDT 01/01/2022 4:23 AM EDT Narrative Resulting Agency Comment Spec In Lab Lorna Haider MD HEMATOLOGY ORDERABL ES Performing Organization Address City/[facility]/ZIP Co de Phone Number [facility] [place] [address] * (ABNORMAL) Basic Metabolic Panel (non-fasting) (01/01/2022 4:15 AM EDT) [facility] Glucose 103 65 - 199 mg/dL ST [...] MD CHEMISTRY ORDERABLES [facility] [place] [address] * ECHO COMPLETE (12/31/2021 8:02 AM EDT) Anatomical Region Laterality Modality Cardiac Other 12/31/2021 6:52 AM EDT Narrative 12/31/2021 8:30 AM EDT ? Echocardiogram Report Name: LOIDA MADRIGAL ? Study Date: 12/31/2021 06:52 AMBP: 109/62 mmHg ? Patient Location: [facility]^C450^B : 1970 ? Height: 163 cm ? Account: [id number] Age: 51 yrs ? Weight: 100 kg Gender: Female ?BSA: 2.0 m2 Ordering Physician: SOBEIDA JIMENEZ Referring Physician: KARIN ESPINOSA Performed By: HAIM Harris Reason For Study: Acute on chronic heart failure with preserved ejection fraction Exam Location: [facility]. Interpretation Summary -Left ventricle is of [...] to the prior study from 06/09/21 Procedure Complete-13355. Satisfactory quality. There is sinus bradycardia. Left [...] Date: 206:52 AMBP: 109/62 mmHg Patient Location:[facility]^C450^B : 1970 Height: 163 cm Account: [id number] Age: 51 yrs Weight: 100 kg Gender: Female BSA: 2.0 m2 Ordering Physician: SOBEIDA JIMENEZ Referring Physician: KARIN ESPINOSA Performed By: HAIM Harris Reason For Study: Acute on chronic heart failure with preserved ejectionfraction Exam Location: [facility]. Interpretation Summary -Left ventricle is of [...] to the prior study from 06/09/21 Procedure Complete-10810. Satisfactory quality. There is sinus bradycardia. Left [...] 7:01 AM EDT) UF Heparin 0.43 IU/mL [facility] Comment: Heparin [...] MD HEMATOLOGY ORDERABLE S Performing Organization Address [facility] Co de Phone Number [facility] [place] [address] * T4, free (12/31/2021 7:01 AM EDT) Free T4 1.16 0.93 - 1.70 ng/dL [facility] Comment: Reference Interval (ng/dL): Females: ??First Trimester: 0.97-1.68 ??Second Trimester: 0.77-1.51 ??Third Trimester: 0.77-1.49 Blood 12/31/2021 7:01 AM EDT 12/31/2021 7:11 AM EDT Narrative Resulting Agency Comment Spec In Lab Sobeida Jimenez MD CHEMISTRY ORDERABLES Performing Organization Address [facility] de Phone Number [facility] [place] [address] * (ABNORMAL) Troponin (12/31/2021 3:28 AM EDT) Troponin-T, High Sensitivity 21(H) <=14 ng/L ST [...] troponin value can be found in the [facility] Laboratory Test Catalog Troponin - [facility] Laboratory Test Catalog Reference: Fourth [place] Definition of Myocardial Infarction. Journal of the [place] College of [employer] 2018;72:0480-8196 Blood 12/31/2021 3:28 AM EDT 12/31/2021 4:31 AM EDT Narrative Resulting Agency Comment Spec In Lab Sobeida Jimenez MD CHEMISTRY ORDERABLES [facility] [place] [address] * EKG 12 Lead (12/31/2021 3:23 AM EDT) Ventricular rate 44 BPM MUSE SYSTEM Atrial Rate 44 BPM MUSE SYSTEM P-R Interval 190 ms MUSE SYSTEM QRS Duration 86 ms MUSE SYSTEM Q-T Interval 562 ms MUSE SYSTEM QTC Calculated (Bezet) 480 ms MUSE SYSTEM Calculated P [place] 32 degrees MUSE SYSTEM Calculated R [place] 58 degrees MUSE SYSTEM Calculated T [place] 24 degrees MUSE SYSTEM INTERPRETATION Marked sinus bradycardia Possible Lateral infarct (cited on or before 30-DEC-2021) Nonspecific ST and T wave abnormality Prolonged QT Abnormal ECG When compared with ECG of 30-DEC-2021 22:45, No significant change was found I personally reviewed the tracing and edited the fellows interpretation Confirmed by fellow MD Rosalinda, Alejandro ([id number]) on 12/31/2021 9:13:46 PM Confirmed by MD Angelo Danette ([id number]) on 01/01/2022 7:24:12 AM MUSE SYSTEM 12/31/2021 3:23 AM EDT 01/01/2022 7:24 AM EDT Sobeida Jimenez MD ECG ORDERABLES Performing Organization Address [facility]/ZIP Co de Phone Number MUSE SYSTEM * Heparin (unfractionated) Level (12/31/2021 12:20 AM EDT) Pathologist [facility] UF Heparin 0.40 IU/mL [facility] Comment: Specimen [...] HEMATOLOGY ORDERABLE S Performing Organization Address City/[facility]/ZIP Co de Phone Number [facility] [place] [address] * Differential, Automated (12/31/2021 12:20 AM EDT) Neutrophil % 57.0 % [facility] Neutrophil Absolute 4.48 1.70 - 6.10 x10(3)/[facility] Lymph % 32.4 % [facility] Lymphocytes Abs 2.6 0.9 - 3.2 x10(3)/[facility]ORATORY Monocyte % 6.4 % [facility] Monocyte Abs 0.5 0.3 - 0.9 x10(3)/[facility] Eos % 3.3 % [facility] Eosinophils Abs 0.3 0.0 - 0.4 x10(3)/[facility]ORATORY Basophil % 0.5 % [facility] Baso Absolute 0.0 0.0 - [...] HEMATOLOGY ORDERABL ES [facility] [place] [address] * Hemogram (12/31/2021 12:20 AM EDT) White [...] HOSPITAL LABORATORY Platelet 209 145 - 357 x10(3)/[facility] RDW Standard Deviation 43.2 37.0 - 46.[address] [facility] RDW coefficient of variation 12.8 11.5 - 14.1 % [facility] Mean Platelet Volume 11.2 7.6 - 12.[address] [facility] NRBC% auto 0.0 % [facility] NRBC Absolute 0.000 0.000 - 0.000 x10(3)/[facility] Blood 12/31/2021 12:2 0 AM EDT 12/31/2021 12:41 AM EDT Narrative Resulting Agency Comment Spec In Lab Lorna Haider MD HEMATOLOGY ORDERABL ES Performing Organization Address City/State/[facility] Co de Phone Number [facility] [place] [address] * (ABNORMAL) Troponin (12/31/2021 12:20 AM EDT) [...] troponin value can be found in the [facility] Laboratory Test Catalog Troponin - [facility] Laboratory Test Catalog Reference: Fourth [place] Definition of Myocardial Infarction. Journal of the [place] College of Cardiology 2018;72:8239-7619 Blood 12/31/2021 12:2 0 AM EDT 12/31/2021 12:41 AM EDT Narrative Resulting Agency Comment Spec In Lab Sobeida Jimenez MD CHEMISTRY ORDERABLES [facility] [place] [address] * (ABNORMAL) Hemoglobin A1c (12/31/2021 12:20 AM [...] Mellitus, Diabetes Care 2013; 36: Suppl. 1, S67-28 Estimated Average Glucose 118 mg/dL [facility] [...] into estimated average glucose values. ??Diabetes Care 2008:31(8):1061-8554. Blood 12/31/2021 12:2 0 AM EDT 12/31/2021 12:42 AM EDT Narrative Resulting Agency Comment Spec In Lab Sobeida Jimenez MD CHEMISTRY ORDERABLES [facility] [place] [address] * Lipid Panel (Reflex Direct LDL) (12/31/2021 12:20 AM EDT) Cholesterol, Total 122 mg/dL [facility] Comment: Lower Risk: <200 mg/dL Average Risk: 200-239 mg/dL Higher Risk: >qf=062 mg/dL Triglyceride 111 mg/dL [facility] Comment: Average Risk/Lower Risk: <150 mg/dL Borderline High Risk: 150-199 mg/dL High Risk: 200-499 mg/dL Very High Risk: >eq=850 mg/dL HDL Cholesterol 35 mg/dL [facility] Comment: Males: ?? Higher Risk: <40 mg/dL Females: ?? Higher Risk: <50 mg/dL LDL Cholesterol 65 mg/dL [facility] Comment: Lowest Risk: <100 mg/dL Lower Risk: 100-129 mg/dL Borderline High Risk: 130-159 mg/dL High Risk: 160-189 mg/dL Very High Risk: >kp=828 mg/dL Cholesterol/HDL Ratio 3.[address] [facility] Lipid Interpretation See Note [facility] Comment: Lipid management should be guided by a patient? s ASCVD risk, goals and preferences. ACC/AHA Guidelines recommend high intensity statin if clinical ASCVD or LDL greater than or equal to 190 mg/dL. http://[employer].com/XUN-XKD-Aklzxntkp Adults aged 40-75 with LDL 70-189 mg/dL should have their 10 year ASCVD risk estimated with the ACC/AHA ASCVD risk production cost estimator http://tools.acc.org/WOIII-Wmlu-Zhrvcmlbd/ Statin should be discussed if risk greater [...] Jimenez MD CHEMISTRY ORDERABLES Performing Organization Address [facility]/ZIP Co de Phone Number [facility] [place] [address] * (ABNORMAL) APTT (12/31/2021 12:20 AM EDT) [...] HEMATOLOGY ORDERABLE S Performing Organization Address City/[facility]/ZIP Co de Phone Number [facility] [place] [address] * Prothrombin Time (12/31/2021 12:20 AM EDT) [...] MD HEMATOLOGY ORDERABLE S Performing Organization Address [facility] Co de Phone Number [facility] [place] [address] * (ABNORMAL) pro-Brain Natriuretic Peptide (12/31/2021 12:20 AM EDT) NT-proBNP 2,515(H) <=124 pg/mL [facility] Blood 12/31/2021 12:2 0 AM EDT 12/31/2021 12:41 AM EDT Narrative Resulting Agency Comment Spec In Lab Sobeida Jimenez MD CHEMISTRY ORDERABLES Performing Organization Address [facility]/ZIP Co de Phone Number [facility] [place] [address] * (ABNORMAL) TSH (12/31/2021 12:20 AM EDT) Thyroid Stimulating Hormone 7.36(H) 0.27 - 4.20 mcIU/mL [facility] Comment: Reference Interval (mcIU/mL): Females: ??First Trimester: 0.23-3.88 ??Second Trimester: 0.22-3.90 ??Third Trimester: 0.44-4.66 Blood 12/31/2021 12:2 0 AM EDT 12/31/2021 12:41 AM EDT Narrative Resulting Agency Comment Spec In Lab Sobeida Jimenez MD CHEMISTRY ORDERABLES Performing Organization Address [facility] Co de Phone Number [facility] [place] [address] * Phosphorus (12/31/2021 12:20 AM EDT) Phosphorus 3.5 2.5 - 4.5 mg/dL [facility] Blood 12/31/2021 12:2 0 AM EDT 12/31/2021 12:41 AM EDT Narrative Resulting Agency Comment Spec In Lab Sobeida Jimenez MD CHEMISTRY ORDERABLES Performing Organization Address [facility] de Phone Number [facility] [place] [address] * Magnesium (12/31/2021 12:20 AM EDT) Magnesium 0.87 0.69 - 1.07 mmol/L [facility] Blood 12/31/2021 12:2 0 AM EDT 12/31/2021 12:41 AM EDT Narrative Resulting Agency Comment Spec In Lab Sobeida Jimenez MD CHEMISTRY ORDERABLES Performing Organization Address [facility] Co de Phone Number [facility] [place] [address] * (ABNORMAL) Basic Metabolic Panel (non-fasting) (12/31/2021 [...] MD CHEMISTRY ORDERABLES [facility] [place] [address] documented in this encounter Visit Diagnoses Diagnosis SVT (supraventricular tachycardia) Other specified cardiac dysrhythmias Non-ST elevation SD (NSTEMI) Acute myocardial infarction, unspecified site, episode [...] or HFrEF) with or without diabetes? No 939 (Given - Provider: Angelina Oquendo RN) 904 (Given - Provider: Angelina Oquendo RN) furosemide (Lasix) (10 mg/mL) injection 20 mg (COMPLETED) 20 mg, Intravenous, ONCE, 1 dose, On Wed12/31/21 at 0115 215 (Given - Provider: Patricia Jacobs RN) furosemide [...] on Wed12/31/21 at 1600, Until Discontinued, Routine 1611 (Given - Provider: Angelina Oquendo RN)2031 (Given - Provider: Patricia Jacobs RN) sodium chloride 0.9 % (flush) (BD PosiFlush Normal Saline 0.9) flush 5 mL 5 mL, Intravenous, 2 TIMES DAILY, First dose on Wed12/30/21 at 2345, Until Discontinued, Routine 0219 (Given - Provider: Patricia Jacobs RN)0940 (Given - Provider: Angelina Oquendo, ERWIN)2100 (Given - Provider: Patricia Jacobs RN) 09 (Given - Provider: Angelina Oquendo, ERWIN) sodium chloride 0.9 % (flush) (BD PosiFlush Normal Saline 0.9) flush 5 mL (CANCELED) 5 mL, Intravenous, 2 TIMES DAILY, First dose on Wed12/30/21 at 2345, Until Discontinued, Routine 217 (Given - Provider: Patricia Jacobs RN) topiramate [...] Routine documented in this encounter Care Teams Campaign Worker Relationship Specialty Start Date End Date Polo Pearce PA [address] [place] [address] PCP - General Internal Medicine 06/09/21 documented as of this encounter
--- OUTSIDE RECORDS SUMMARY | 2024-04-10 17:11 | XMS_ITS | Encounter Summary ---
Author Organization [facility] [place] [address] Care Team Providers Care Towing Pilot Name Role Phone Polo Pearce Primary Care Provider [phone] Encounter Details Date Type Department Care Team (Late st Contact Info) Description 06/13/2021 [place] [address] Ralf Mejia MD Social History Tobacco Use Types Packs/Day Years [...] Referring provider: Jasiel Caicedo MD Patient location: [facility] Past medical history: HLD HTN Asthma Depression ?Micrvascular disease SVT MARYLOU Diastolic heart failure History 51-year-old female with history as noted above who is just admitted to [facility] for evaluation of angina with discharge 06/08/2021. At that time she initially presented to [facility] where she was noted to have a troponin I of 406 which was flat at 411 on repeat and an elevated BNP. EKG showed nonspecific ST changes in the inferolateral leads. She was transferred to [facility] for further evaluation where she underwent a [...] I and her recent work-up here at [facility] which did not include an ischemic evaluation but did include a transesophageal echocardiogramserial EKGs and serial negative troponins that further work-up at [facility] may be appropriate. Suspect that her [...] given her clean coronary cath back in 2020. Would be reasonable start her on metoprolol for this SVT as wellas possible microvascular angina. Plan: -Continue management at [facility]. -Recommend stress test at [facility]. -Start metoprolol succinate 25 mg daily with follow-up with cardiology and up titration. -Continue medications as prescribed from her recent discharge. -Planning to get serial troponins and EKGs. If these are markedly changing can reassess and consider transfer to [facility] for further evaluation. Ralf Mejia MD 06/13/2021 12:05 AM documented in this encounter Plan of Treatment Upcoming Encounters Date Type Department Care Team (Late st Contact Info) Description 07/19/2024 3:00 PM EDT Office Visit [place] [address] [place] [address] documented as of this encounter Visit Diagnoses Not on filedocumented in this encounter Care Teams Towing Pilot Relationship Specialty Start Date End Date Polo Pearce PA [address] [facility] [address] [place] [address] PCP - General Internal Medicine 06/09/21 documented as of this encounter
--- OUTSIDE RECORDS SUMMARY | 2024-04-10 17:11 | XMS_ITS | Encounter Summary ---
Author Organization [facility] Address [facility] [place] [address] Care Team Providers Care Building Cleaning Supervisor Name Role Phone Polo Pearce Primary Care Provider [phone] Reason for Visit * Reason Comments Congestive Heart Failure Encounter Details Date Type Department Care Team (Late st Contact Info) Description 03/16/2022 3:20 PM EST Office Visit Cardiology at [address] [address] Jaspreet Kinsey MD [facility] [place] [address] Heart failure with preserved ejection fraction, unspecified [...] She states when she was discharged [facility] inOctober she felt OK, [...] Rfl: ??? fluticasone propionate (FLONASE) 50 mcg/actuation [place], Suspension, 1 spray by Each Nare routedaily., [...] preserved ejection fraction 05/2021: subacute, presented to [facility] with RUQ pain, weight gain, and progressive dyspnea. Noted to caryr most fluid in abdomen ??? Restless legs ??? Asthma ??? Rhinitis, nonallergic, chronic Objective: BP 114/64 (BP Location (NBP): Left arm, Patient Position: Sitting, BP Cuff Sizes: Adult (25-34 cm)) Pulse 51 Ht 162.6 cm (5' 4) Wt 98.9 kg (218 lb) BMI 37.42 kg/m?? Gen: pleasant female in NAD Cor: omrgan reg, s1/s2 of nl character and amplitude, [...] 3:00 PM EDT Office [place] [address] [place] [address] documented as of this encounter Visit Diagnoses Diagnosis Heart failure with preserved ejection fraction, unspecified HF chronicity SVT (supraventricular tachycardia) Other specified cardiac dysrhythmias documented in this encounter Care Teams Building Cleaning Supervisor Relationship Specialty Start Date End Date Polo Pearce PA [address] [place] [address] PCP - General Internal Medicine 06/09/21 documented as of this encounter
--- OUTSIDE RECORDS SUMMARY | 2024-04-10 17:11 | XMS_ITS | Encounter Summary ---
[place] [address] Care Team Providers Care Care Mgr Name Role Phone Polo Pearce Primary Care Provider [phone] Encounter Details Date Type Department Care Team (Late st Contact Info) Description 03/11/2022 Telephone Cardiology at [address] [phone] Mary Motta, RN Social History Tobacco Use [...] ESTSummary: Pre Procedure Call: SVT Ablation EP MASS SPECTROMETRY SPECIALIST COORDINATION CHECKLIST Patient Name: Indira Roque Patient Performing Editor Managing Director: Jed Tovar Referring Provider: Sobeida Jimenez Date of Procedure: 03/23/22 Arrival Time/ Case Time: 6:00 am / 7:30 am Check In Location: Search Planner Desk 4W Date Patient was Called: 03/11/22 [...] , understands that they will need driver lifter of sanitation truck on day of discharge Notified pt that Esqueda catheter may be placed on day of procedure depending on type & duration of case. Special Notes/Considerations: Given fequent ED visits to [facility] within the past 4 days, will contact pt next week (03/18) to see howsymptoms are progressing. If still having pain, issues will need to reschedule procedure per Dr. Tovar documented in this encounter Plan of Treatment Upcoming Encounters Date Type Department Care Team (Late st Contact Info) Description 07/19/2024 3:00 PM EDT Office [place] [address] [place] [address] documented as of this encounter Visit Diagnoses Not on filedocumented in this encounter Care Teams Care Mgr Relationship Specialty Start Date End Date Polo Pearce PA [address] [place] [address] PCP - General Internal Medicine 06/09/21 documented as of this encounter
--- OUTSIDE RECORDS SUMMARY | 2024-04-10 17:11 | XMS_ITS | Encounter Summary ---
[place] [address] Care Team Providers Care Director Of Casework Department Name Role Phone Polo Pearce Primary Care Provider [phone] Encounter Details Date Type Department Care Team (Late st Contact Info) Description 03/10/2022 Telephone Cardiology at [address] [address] Maegan Mike APRN [facility] [place] [address] Social History Tobacco Use Types Packs/Day Years [...] Referring Provider: Otis Rubi APRN Patient Location: [facility] ED Past Medical History: Type II non-STEMI in October 2021, cardiac cath with normal coronary arteries in October 2019 AVNRT, 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 [...] the patient condition. Maegan Mike APRN Pager [phone] 03/10/2022 documented in this encounter Plan of Treatment Upcoming Encounters Date Type Department Care Team (Late st Contact Info) Description 07/19/2024 3:00 PM EDT Office [place] [address] [place] [address] documented as of this encounter Visit Diagnoses Not on filedocumented in this encounter Care Teams Director Of Casework Department Relationship Specialty Start Date End Date Polo Pearce PA [address] [place] [address] PCP - General Internal Medicine 06/09/21 documented as of this encounter
--- OUTSIDE RECORDS SUMMARY | 2024-04-10 17:11 | XMS_ITS | Encounter Summary ---
[place] [address] Care Team Providers Care Market Development Analyst Name Role Phone Polo Pearce Primary Care Provider [phone] Encounter Details Date Type Department Care Team (Late st Contact Info) Description 08/08/2021 Orders Only Cardiology at [address] [phone] Umberto Joy PA [facility] [place] [address] AVNRT (AV makayla re-entry tachycardia) (Primary Dx); [...] 3:00 PM EDT Office [place] [phone] Mary Reyes APRN [facility] [place] [address] documented as of this encounter Visit Diagnoses Diagnosis AVNRT (AV makayla re-entry tachycardia)- Primary Other specified cardiac dysrhythmias Heart failure with preserved ejection fraction, unspecified HF chronicity SVT (supraventricular tachycardia) Other specified cardiac dysrhythmias documented in this encounter Care Teams Market Development Analyst Relationship Specialty Start Date End Date Polo Pearce PA [address] [place] [address] PCP - General Internal Medicine 06/09/21 documented as of this encounter
--- OUTSIDE RECORDS SUMMARY | 2024-04-10 17:12 | XMS_ITS | Encounter Summary ---
[place] [address] Care Team Providers Care Cosmetician Name Role Phone Tim Rogers DNP Primary Care Provider Encounter Details Date Type Department Care Team (Late st Contact Info) Description 05/27/2021 Ancillary Procedure Radiology Library at [facility] [place] [address] Tim Rogers DNP [facility] [address] [place], [place] [address] Social History Tobacco Use Types Packs/Day Years [...] 3:00 PM EDT Office Visit Gastroenterology at [facility] [place] [phone] Mary Reyes APRN [facility] [place] [address] documented as of this encounter Procedures Procedure Name Priority Date/Time Associated Diagnosis Comments FILM LIBRARY STORAGE ONLY CT ABDOMEN AND PELVIS Routine 05/27/2021 12:00 AM EDT documented in this encounter Results * Film Library- Storage Only CT Abdomen & Pelvis (05/27/2021 12:00 AM EDT) Narrative [facility] - 05/30/2021 2:30 PM EDT This exam is auto-finalizing. It's purpose is for storage only. Tim Rogers DNP IM FILM LIBRARY OR DERABLES Performing Organization Address City/State/[facility] Co de Phone Number [place], [place] documented in this encounter Visit Diagnoses Not on filedocumented in this encounter Care Teams Cosmetician Relationship Specialty Start Date End Date Tim Rogers DNP [address] [place] [address] PCP - General Family Medicine 08/28/19 06/08/21 documented as of this encounter
--- OUTSIDE RECORDS SUMMARY | 2024-04-10 17:12 | XMS_ITS | Encounter Summary ---
Author Organization [facility] [place] [address] Care Team Providers Care Freight Manager Name Role Phone Tim Rogers DNP Primary Care Provider [phone] Encounter Details Date Type Department Care Team (Latest Contact Info) Description 05/30/2021 9:30 AM EDT TH Visit (TeleHealth) [place] [phone] Beto Miller MD [facility] [place] [address] Pleurisy with effusion; *History of COVID-19; Chronic [...] 05/30/21 PCP: Polo Pearce and Tim Rogers, BUSINESS MANAGEMENT ANALYST [address] [place] [address] Pulmonary Background: ?? Cough, dyspnea, wheeze and [...] 1: 80, normal SSA, SSB, Alcantar antibody, FOUNDER / CEO antibody, ANCA, MPO antibody, AR-3 antibody, serum RITCHIE, CBC, BMP and CRP [...] I reviewed the chest x-ray done at [place] at the time which showed bilateral hazy opacities (mild). Debbie was not hospitalized for Covid and seemed to make a short-term recovery but by late April was again struggling. She describes increased cough and dyspnea and went to the emergency room at [place] May 02. I do not have that [...] the May 27 CT chest images from [facility] and her April chest x-ray images ??? Once I have reviewed these I will contact the patient and potentially involve local middleware solutions architect, Ryanne Wilson, who I do not think is ever seen the patient but may be a useful local resourcegiven Indira's complicated history Outpatient Established Visits Time MDM 71431 10-19 Straightforward 15134 20-29 X Low 21216 30-39 Moderate 03686 40-54 High 60126 + 15 mins Beto Miller MD documented in this encounter Plan of Treatment Upcoming Encounters Date Type Department Care Team (Late st Contact Info) Description 07/19/2024 3:00 PM EDT Office [place] [address] [place] [address] documented as of this encounter Visit Diagnoses Diagnosis Pleurisy with effusion Unspecified pleural effusion History of COVID-19 Chronic cough Cough RAVI (dyspnea on exertion) Other dyspnea and respiratory abnormality documented in this encounter Care Teams Freight Manager Relationship Specialty Start Date End Date Tim Rogers DNP [address] [place] [address] PCP - General Family Medicine 08/28/19 06/08/21 documented as of this encounter
--- OUTSIDE RECORDS SUMMARY | 2024-04-10 17:12 | XMS_ITS | Encounter Summary ---
Author Organization [facility] [address] [place] [address] Care Team Providers Care Cupola Charger Insulation Name Role Phone Tim Rogers DNP Primary Care Provider [phone] Reason for Visit * - Closed Specialty Diagnoses / Procedures Referred By Jayant harris Referred To Contact Procedures Film Library- Storage Only CT Chest Tim Rogers DNP [address] [place] [address] Referral ID Status Reason Start Date Expiration Date Visits Re quested Visits Authorized [id number] Closed 08/02/2020 08/02/2021 1 1 Encounter Details Date Type Department Care Team (Late st Contact Info) Description 04/26/2020 Ancillary Procedure Radiology Library at [facility] [place] [address] Tim Rogers DNP [address] [place] [address] Social History Tobacco Use Types [...] 3:00 PM EDT Office [place] [address] [place] [address] documented as of this encounter Procedures Procedure Name Priority Date/Time Associated Diagnosis Comments FILM LIBRARY STORAGE ONLY CT CHEST Routine 04/26/2020 12:00 AM EST documented in this encounter Results * Film Library- Storage Only CT Chest (04/26/2020 12:00 AM EST) Narrative [facility] - 08/02/2020 9:42 AM EDT This exam is auto-finalizing. It's purpose is for storage only. Tim Rogers DNP IMKadi FILM LIBRARY OR DERABLES Performing Organization Address City/State/[facility] Co de Phone Number [place], [place] documented in this encounter Visit Diagnoses Not on filedocumented in this encounter Care Teams Cupola Charger Insulation Relationship Specialty Start Date End Date Tim Rogers DNP [address] [place] [address] PCP - General Family Medicine 08/28/19 06/08/21 documented as of this encounter
--- OUTSIDE RECORDS SUMMARY | 2024-04-10 17:12 | XMS_ITS | Encounter Summary ---
[place] [address] Care Team Providers Care Industrial Relations Officer Name Role Phone Tim Rogers DNP Primary Care Provider [phone] Reason for Visit * Reason Onset Date Comments Other 10/25/2020 Regarding Ziopat ch Encounter Details Date Type Department Care Team (Late st Contact Info) Description 10/25/2020 Telephone [place] [address] Olive Gonzales RN Other (Regarding Ziopatch) Social [...] reach out to Pt. Pt must call [phone] to request Ziopatch. Olive Gonzales RN Department of Pulmonary 5C, [facility] / Pager: [phone] documented in this encounter Plan of Treatment Upcoming Encounters Date Type Department Care Team (Late st Contact Info) Description 07/19/2024 3:00 PM EDT Office Visit [place] [address] [place] [address] documented as of this encounter Visit Diagnoses Not on filedocumented in this encounter Care Teams Industrial Relations Officer Relationship Specialty Start Date End Date Tim Rogers DNP [facility] [address] [place] [address] PCP - General Family Medicine 08/28/19 06/08/21 documented as of this encounter
--- OUTSIDE RECORDS SUMMARY | 2024-04-10 17:12 | XMS_ITS | Encounter Summary ---
[place] [address] Care Team Providers Care Youth Services Librarian Name Role Phone Tim Rogers DNP Primary Care Provider Encounter Details Date Type Department Care Team (Late st Contact Info) Description 04/26/2020 Orders [place] [phone] Bull Fitzgerald MD [facility] [place] [address] Dyspnea, unspecified type (Primary Dx) Social History [...] 3:00 PM EDT Office [place] [phone] Mary Reyes APRN [facility] [place] [address] documented as of this encounter Results * [...] / FVC LLN 69 % COMPAS PFT ZLF02-50 Actual Pre-BD 3.14 L/s COMPAS PFT XTZ89-80 Pre-BD % of Predicted 116 % COMPAS PFT EPN64-40 Predicted 2.70 L/s COMPAS PFT NKH81-04 Pre-BD Z-Score 0.51 COMPAS PFT FVC Actual [...] PFT FEV1/FVC Post-BD Z-Score 1.94 COMPAS PFT PQD98-22 Actual Post-BD 4.26 L/s COMPAS PFT APD86-58 Post-BD % of Predicted 158 % COMPAS PFT MNM08-19 Post-BD Z-Score 1.67 COMPAS PFT DLCO Hb [...] type documented in this encounter Care Teams Youth Services Librarian Relationship Specialty Start Date End Date Tim Rogers DNP [address] [place] [address] PCP - General Family Medicine 08/28/19 06/08/21 documented as of this encounter
--- OUTSIDE RECORDS SUMMARY | 2024-04-10 17:12 | XMS_ITS | Encounter Summary ---
Author Organization [facility] [place] [address] Care Team Providers Care Necktie Stitcher Name Role Phone Tim Rogers DNP Primary Care Provider Reason for Visit * Diagnostic Test (Routine) - Closed Specialty Diagnoses / Procedures Referred By Jayant harris Referred To Contact Cardiology Diagnoses Palpitations Procedures Ziopatch 48 Hrs-15 Days Beto Miller MD [facility] [place] [address] [facility] [place] [address] Referral ID Status Reason Start Date Expiration Date V isits Requested Visits Authorized [id number] Closed Specialty Service Requested 10/28/2020 03/07/2021 1 1 Encounter Details Date Type Department Care Team (Latest Contact Info) Description 10/28/2020 8:00 AM EDT - 10/28/2020 11:59 PM EDT Hospital Encounter [place] [address] Beto Miller MD [facility] [place] [address] Palpitations Discharge Disposition: Home Social [...] as needed. fluticasone propionate (FLONASE) 50 mcg/actuation [place], Suspension 1 spray by Each Nare route [...] 3:00 PM EDT Office [place] [address] [place] [address] documented as of this encounter Procedures Procedure [...] Palpitations documented in this encounter Care Teams Necktie Stitcher Relationship Specialty Start Date End Date Tim Rogers DNP [address] [place] [address] PCP - General Family Medicine 08/28/19 06/08/21 documented as of this encounter
--- OUTSIDE RECORDS SUMMARY | 2024-04-10 17:12 | XMS_ITS | Encounter Summary ---
[place] [address] Care Team Providers Care Vault Cashier Name Role Phone Polo Pearce Primary Care Provider [phone] Reason for Visit * Auth/Cert Specialty Diagnoses / Procedures Referred By Jayant t Referred To Contact Diagnoses NSTEMI (non-ST elevated myocardial infarction) NSTEMI Procedures EMERGENCY OBSVO Referral ID Status Reason Start Date Expiration Date Visits Re quested Visits Authorized [id number] 1 1 Encounter Details Date Type Department Care Team (Late st Contact Info) Description 06/09/2021 8:15 AM EDT - 06/09/2021 9:15 AM EDT [place] [address] Aaron Ash MD [facility] [place] [address] CARDIAC CATHETERIZATION Social History Tobacco Use Types [...] Loida Roque Patient Age: 51 y.o. Language: Kenyan Race: White Ethnicity: Not nor Admit date: [...] Provider Contact Information: Dr. Mario Zaidi PA-C [phone] Discharge Diagnoses (Hospital Problems) and Secondary Diagnoses [...] change from prior in 08/2019. ?? Procedure Complete-97325. Image enhancement Definity was used for left [...] who have questions please contact the health eye care professional that requested your imaging first. CXR 06/08/2021 [...] Insomnia, and migraine who presents to [facility] with RUQ pain that radiated to [...] 15. ?? Hospital Course: On admission to [facility], the patient had no complaints of [...] needed Follow up Appointments: PCP Tim Rogers, PAD EXTRACTOR TENDER [phone] to see you in a week (patient to set this up) Mel placed on 06/09/2021 Cardiology to see in a month and prn. Dr. Kinsey to see the patient in [place] on July 23 at 920 am. Please call [phone] with questions. Home oxygen therapy: N/A Arrangements for VNA/home care: none Future Appointments and Orders Future Appointments and Orders Future Appointments Provider Department Dept Phone 07/23/2021 8:20 AM Jaspreet Kinsey MD Cardiology at [place] Arrive at: [facility] [address] [phone] Future Orders Complete By Expires Ziopatch 48 Hrs-15 Days [[id number] CPT(R)] 06/09/2021 12/09/2021 Process Instructions: Scheduling Instructions: [...] needed Follow up Appointments: PCP Tim Rogers, PAD EXTRACTOR TENDER [phone] to see you in a week (patient to set this up) Ziopatch placed on 06/09/2021 Cardiology to see in a month and prn. Dr. Kinsey to see the patient in [place] on July 23 at 920 am. Please call [phone] with questions. Home oxygen therapy: N/A Arrangements for VNA/home care: none documented in this encounter Medications at Time of Discharge Medication Sig Dispensed Refills Start Date End Date rOPINIRole (Requip) 1 mg Tablet Take 2 mg by mouth 2 times daily. 07/16/2020 loratadine (Claritin) 10 mg Tablet Take 10 mg by mouth daily as needed. fluticasone propionate (FLONASE) 50 mcg/actuation Parker, Suspension 1 spray by Each Nare route [...] Nutrition Plan: Pt seen for Na2gm diet. Freezer Tunnel Operator informed pt of current diet orders and their restrictions. Pt expressed understanding and informed this marketing copywriter that she tries to limit salt use at home. Freezer Tunnel Operator and pt discussed common sources of [...] nausea and no vomiting Last Bowel Movement: (LITIGATION MANAGER) Patient education / questions: provided diet order education and patient with good understanding, written education and contact information provided and all nutrition related questions answered at this time Nutrition services to follow weekly through hospital course unless consulted in the interim. Rocio Rosenthal Pager: [phone] * Deja Zaidi PA - 06/09/2021 9:14 AM EDT Inpatient Cardiology Discharge Day Note Patient Name: Loida Roque Service: DECORATING INSPECTOR / PA Responsible Attending: Mario Hallman MD [...] (from the past 24 hour(s)) urine, qualitative ([place]/P/NL) Result Value Ref Range Spec [place] UA 1.010 1.006 - 1.030 HCG Qual [...] to [facility] from [facility] with a NSTEMI. She has an [...] with Dr. Hallman. ?? JOCY Hernandez Pager [phone] JOCY MCKOY 06/09/2021 Associated attestation - Mario Hallman MD - 06/09/2021 9:37 PM EDT Cardiology Attending Addendum I shared this visit with JOCY Zaidi and guided the medical decision- making. I explained to patient the findings of echo, R heart catheterization and our diagnostic impression and medications (furosemide and empagliflozin) and possible adverse events. More than 30 minutes were spent in excl-ae-ouls contact with patient and with arranging discharge and coordinating follow-up. * Silvino Robles, QUALITY PROCESS ENGINEER - 06/09/2021 5:48 AM EDT Respiratory Therapy [...] Jaspreet Pardo - 06/08/2021 8:34 PM EDT Wood Shingle Roofer Encounter Note Patient Name: Loida Roque : [id number] MR#: [id number] Admit Date: 06/07/2021 3:49 PM Hospital Day 0 days Narrative: Initial rounding visit to introduce medical office technology instructor services and to assess patient interest. Patient [...] Day Note Patient Name: Loida Roque Service: DECORATING INSPECTOR / PA Responsible Attending: Mario Hallman MD [...] ??? heparin (porcine) infusion 1,100 Units/hr (06/08/21 2753) PRN Meds:hydrOXYzine, heparin (porcine) infusion AND heparin [...] PCR Not Detected Not Detected SARS-CoV-2 Source DECORATING INSPECTOR Swab Troponin Result Value Ref Range Troponin-T [...] to [facility] from [facility] with a NSTEMI. She has an [...] with Dr. Hallman. ?? 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 ??? fluticasone propionate (FLONASE) 50 mcg/actuation Parker, Suspension 1 spray by Each Nare route [...] to [facility] from [facility] with a NSTEMI. She has an elevated trop, BNP and lateral EKG changes. Patient is now awaiting an Echo and cardiac cath. Neurology consult called in to determine if she needs imaging prior to her Echo and cath given garbled speech a week ago. Stable at this time. TREATMENT PLAN: NSTEMI Admit to [facility] for telemetry monitoring Serial enzymes and [...] JOCY Hernandez 06/07/2021 Provider: JOCY MCKOY Pager [phone] 06/07/2021 Associated attestation - Mario Hallman MD [...] COVID test: Lab Results Component Value Date [id number] Not Detected 06/07/2021 Present on Admission: ??? [...] Primary care provider on file: Tim Rogers, PAD EXTRACTOR TENDER [phone] Pharmacy: [id number] - [place], [place] - [address] [facility] [address] [address] Advance Care Planning: Attempt Cardiopulmonary Resuscitation - Inpatient <no information> -Advanced Directive: No, declines (Boby (spouse) SDM) Current Functional Ability: Independent Functional Status Prior to Admission: Independent Home Environment: Others in the home: spouse. Current Living Arrangements: home/apartment/condo. Accessibility Concerns: . Current DME: none [address] [place] [address] Social & Family Supports: All names listed [...] private vehicle when medically ready. Registered Nurse Clerical Adjudicator / Geriatric Personal Care Aide will continue to follow patient???s progress and [...] Daily. ??? 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 Consider MACHINIST JOB SETTER consult for full evaluation and diet recommendations. [...] Ongoing * Plan of Care - Deja Zadii PA - 06/07/2021 5:46 PM EDT Images [...] for further details. JOCY MCKOY 06/07/2021 Pager [phone] documented in this encounter Plan of Treatment Upcoming Encounters Date Type Department Care Team (Late st Contact Info) Description 07/19/2024 3:00 PM EDT Office [place] [address] [place] [address] documented as of this encounter Procedures Procedure [...] Modality Other Narrative 07/01/2021 9:29 AM EDT [facility] ? Zio Patch? Ambulatory Cardiac Event [...] atrial premature beat conducted with a prolonged VA interval, strongly suggestive of atrioventricular makayla reentrant [...] as described ?? Kurt Larose MD, PhD, [facility] Cardiac Electrophysiology Mario Hallman MD CARDIAC SERVICES ORD ERABLES * CARDIAC CATHETERIZATION (06/09/2021 9:05 AM EDT) Anatomical Region Laterality Modality Other Narrative 06/09/2021 9:09 AM EDT ?[facility] ? Cardiac Catheterization/Intervention Report ? Patient Name: Neisha, Loida ? Procedure Date: 06/09/2021 ? A #: [id number] ? Primary Physician: Nilsa, Aaron Santana ? Case #: [id number] ? File Name: [id number] ? Catheterization Order Number: [id number] ? [facility] ? Final Report [place], [place] ? Patient Name: ? Loida Neisha ? ID#: ?[id number] ? : ?1970 ? Procedure Date: ? June 09, 2021 ?Case #: ? [id number] ? Room: ? 1 ? Case Physician: [...] procedure was Urgent. 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 Chest pain [...] Procedure Note Aaron Ash MD - 06/23/2021 [facility] Cardiac Catheterization/Intervention Report Patient Name: Loida Roque Procedure Date: 06/09/2021 A #: [id number] Primary Physician: Aaron Ash Case #: [id number] File Name: [id number] Catheterization Order Number: [id number] [facility] FinalReport [place], [place] Patient Name: Loida Roque ID#:[id number] :1970 Procedure Date: June 09, 2021 Case [...] patientwas designated as ASA Class III. The [facility] clinical frailty scale is 2:Well. Diagnostic Tests: [...] diagnostic procedure was Urgent. 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 Chest pain [...] 3:37 AM EDT) NT-proBNP 911(H) <=124 pg/mL [facility] Blood Venous Draw / Unknown 06/09/2021 3:37 AM EDT 06/09/2021 3:59 AM EDT Narrative Resulting Agency Comment Spec In Lab Deja SANDRA CHEMISTRY ORDERABLES [facility] [place] [address] * Differential, Automated (06/09/2021 3:37 AM EDT) Pathologist [facility] Neutrophil % 64.9 % [facility] Neutrophil Absolute 5.12 1.70 - 6.10 x10(3)/[facility] Lymph % 21.9 % [facility] Lymphocytes Abs 1.7 0.9 - 3.2 x10(3)/[facility] Monocyte % 8.6 % [facility] Monocyte Abs 0.7 0.3 - 0.9 x10(3)/[facility] Eos % 3.4 % [facility] Eosinophils Abs 0.3 0.0 - 0.4 x10(3)/[facility] Basophil % 0.8 % [facility] Baso Absolute 0.1 0.0 - 0.1 x10(3)/[facility] [...] Gran Absolute 0.03 0.00 - 0.04 x10(3)/[facility] Blood 06/09/2021 3:37 AM EDT 06/09/2021 3:58 AM EDT Narrative Resulting Agency Comment Spec In Lab Deja SANDRA HEMATOLOGY ORDERABLE S [facility] [place] [address] * (ABNORMAL) Hemogram (06/09/2021 3:37 AM EDT) White Blood Cell 7.9 4.0 - 9.5 x10(3)/mc L [facility] Red Blood Cell 4.88 4.00 - 5.21 x10(6)/mc L [facility] Hemoglobin 15.2 11.7 - 15.5 [...] Platelet 334 145 - 357 x10(3)/mc L [facility] RDW Standard Deviation 49.2(H) 37.0 - 46.0 [facility] RDW coefficient of variation 14.5(H) 11.5 - 14.1 % [facility] Mean Platelet Volume 10.2 7.6 - 12.9 [facility] NRBC% auto 0.0 % [facility] NRBC Absolute 0.000 0.000 - 0.000 x10(3)/mc L [facility] Blood 06/09/2021 3:37 AM EDT 06/09/2021 3:58 AM EDT Narrative Resulting Agency Comment Spec In Lab Deja SANDRA HEMATOLOGY ORDERABLE S [facility] [place] [address] * (ABNORMAL) BMP w/fasting Glucose (06/09/2021 3:37 AM EDT) [facility] Signature Glucose Fasting 103(H) 65 - [...] of Diabetes Mellitus, Position Statement from the [place] Diabetes Association. ??Diabetes Care, Volume 33, Supplement [...] Hallman MD CHEMISTRY ORDERABLES Performing Organization Address [facility]/ZIP Co de Phone Number [facility] [place] [address] * Heparin (unfractionated) Level (06/08/2021 4:07 PM [...] MD HEMATOLOGY ORDERABLE S Performing Organization Address City/[facility]/ZIP Co de Phone Number [facility] [place] [address] * XR Chest PA & Lateral (Generic) [...] who have questions please contact the health eye care professional that requested your imaging first. ? Electronically signed by: Magda Machado MD, [facility] ([phone]), at 06/08/2021 6:00 PM Narrative 06/08/2021 6:00 [...] patients who have questions please contactthe health eye care professional that requested your imaging first. Mario Hallman [...] who have questions please contact the health eye care professional that requested your imaging first. ? Electronically signed by: Kiran Cantor MD, [facility] ([phone]), at 06/08/2021 2:35 PM Narrative 06/08/2021 2:35 [...] patients who have questions please contactthe health eye care professional that requested your imaging first. Electronically signed by: Kiran Cantor MD, [facility]([phone]), at 06/08/2021 2:35 PM Mario Hallman MD IMG MRI ORDERABLES * (ABNORMAL) CRP, acute inflammation (06/08/2021 11:58 AM EDT) C-Reactive Protein 28.1(H) <=4.9 mg/L [facility] Blood 06/08/2021 11:5 8 AM EDT 06/08/2021 12:04 PM EDT Narrative Resulting Agency Comment Spec In Lab Mario Hallman MD CHEMISTRY ORDERABLES [facility] [place] [address] * CK (06/08/2021 11:58 AM EDT) Creatine Kinase 30 0 - 160 unit/L [facility] Blood 06/08/2021 11:5 8 AM EDT 06/08/2021 12:04 PM EDT Narrative Resulting Agency Comment Spec In Lab Mario Hallman MD CHEMISTRY ORDERABLES Performing Organization Address [facility]/ZIP Co de Phone Number [facility] [place] [address] * (ABNORMAL) Sedimentation rate (06/08/2021 11:58 AM [...] MD HEMATOLOGY ORDERABLE S Performing Organization Address [facility] Co de Phone Number [facility] [place] [address] * Heparin (unfractionated) Level (06/08/2021 11:58 AM EDT) UF Heparin 0.77 IU/mL [facility] [...] Resulting Agency Comment Spec In Lab Mario Hallmna MD HEMATOLOGY ORDERABLE S Performing Organization Address City/[facility]/ZIP Co de Phone Number [facility] [place] [address] * urine, qualitative ([place]) (06/08/2021 11:51 AM EDT) Specific [place] Urine Automated 1.010 1.006 - 1.030 ST [...] In Lab Mario Hallman MD URINE ORDERABLES [facility] [place] [address] * ECHO COMPLETE W CONTRAST (06/08/2021 11:09 AM EDT) Anatomical Region Laterality Modality Other 06/08/2021 9:35 AM EDT Narrative 06/08/2021 12:42 PM EDT ?[facility] ?[address] ? [place] [address] ?Voice: ?Fax: ? Echocardiogram Report Name: NEISHA LOIDA ? Study Date: 06/08/2021 09:35 AMBP: 109/69 mmHg ? Patient Location: ICCU^432^A : 1970 ? Height: 163 cm ? Account: [id number] Age: 51 yrs ? Weight: 95 kg Gender: Female ?BSA: 2.0 m2 Ordering Physician: DONALD Referring Physician: AJ HARTMAN Performed By: Aaron Herr RDCS Reason For Study: NSTEMI (non-ST elevated myocardial infarction) Exam Location: [facility]. Interpretation Summary 1. Left ventricle is of [...] significant change from prior in 08/2019. Procedure Complete-[id number]. Image enhancement Definity was used for left [...] Note Kai Haider MD - 06/08/2021 [facility] [address] [place] [address] Voice: Fax: Echocardiogram Report Name: LOIDA ROQUE Study Date: 209:35 AMBP: 109/69 mmHg Patient Location:[place] [address]^ : 1970 Height: 163 cm Account: [id number] Age: 51 yrs Weight: 95 kg Gender: Female BSA: 2.0 m2 Ordering Physician: DONALD Referring Physician: AJ HARTMAN Performed By: Aaron Herr RDCS Reason For Study: NSTEMI (non-ST elevated myocardial infarction) Exam Location: [facility]. Interpretation Summary 1. Left ventricle is of [...] significant change from prior in 08/2019. Procedure Complete-64633. Image enhancement Definity was used for left [...] AM EDT) UF Heparin 1.20(Crit ical) IU/mL [facility] HEMATOLOGY ORDERABLE S [facility] [place] [address] * (ABNORMAL) Differential, Automated (06/08/2021 4:41 AM EDT) Neutrophil % 71.8 % [facility] Neutrophil Absolute 8.09(H) 1.70 - 6.10 x10(3)/mc L [facility] Lymph % 18.0 % [facility] Lymphocytes Abs 2.0 0.9 - 3.2 x10(3)/mc L [facility] Monocyte % 5.7 % [facility] Monocyte Abs 0.6 0.3 - 0.9 x10(3)/mc L [facility] Eos % 3.5 % [facility] Eosinophils Abs 0.4 0.0 - 0.4 x10(3)/mc L [facility] Basophil % 0.6 % [facility] Baso Absolute 0.1 0.0 - 0.1 x10(3)/mc L [facility] Immature Gran [...] Absolute 0.05(H) 0.00 - 0.04 x10(3)/mc L [facility] Blood 06/08/2021 4:41 AM EDT 06/08/2021 5:11 AM EDT Narrative Resulting Agency Comment Spec In Lab Deja SANDRA HEMATOLOGY ORDERABLE S [facility] [place] [address] * (ABNORMAL) Hemogram (06/08/2021 4:41 AM EDT) White Blood Cell 11.3(H) 4.0 - 9.5 x10(3)/ L [facility] Red Blood Cell 4.64 4.00 - 5.21 x10(6)/ L [facility] Hemoglobin 13.9 11.7 - 15.5 [...] Platelet 312 145 - 357 x10(3)/ L [facility] RDW Standard Deviation 47.4(H) 37.0 - 46.[address] [facility] RDW coefficient of variation 14.3(H) 11.5 - 14.1 % [facility] Mean Platelet Volume 10.8 7.6 - 12.[address] [facility] NRBC% auto 0.0 % [facility] NRBC Absolute 0.000 0.000 - 0.000 x10(3)/ L [facility] Blood 06/08/2021 4:41 AM EDT 06/08/2021 5:11 AM EDT Narrative Resulting Agency Comment Spec In Lab Deja SANDRA HEMATOLOGY ORDERABLE S Performing Organization Address [facility] Co de Phone Number [facility] [place] [address] * (ABNORMAL) Heparin (unfractionated) Level (06/08/2021 4:41 [...] MD HEMATOLOGY ORDERABLE S Performing Organization Address [facility] Co de Phone Number [facility] [place] [address] * (ABNORMAL) BMP w/fasting Glucose (06/08/2021 4:41 [...] of Diabetes Mellitus, Position Statement from the [place] Diabetes [employer]. ??Diabetes Care, Volume 33, Supplement [...] Hallman MD CHEMISTRY ORDERABLES Performing Organization Address City/[facility]/ZIP Co de Phone Number [facility] [place] [address] * Troponin (06/08/2021 4:41 AM EDT) Troponin-T [...] ischemia ?? New or presumed new significant LK-tawhmjw-L wave (ST-T) changes or new left bundle [...] additional sample may be indicated. Reference: Third [place] Definition of Myocardial Infarction. Journal of the [place] [employer] 2012;60:1581-98 Blood 06/08/2021 4:41 AM EDT 06/08/2021 5:12 AM EDT Narrative Resulting Agency Comment Spec In Lab Mario Hallman MD CHEMISTRY ORDERABLES Performing Organization Address City/[facility]/ZIP Co de Phone Number [facility] [place] [address] * Heparin (unfractionated) Level (06/07/2021 9:55 PM EDT) UF Heparin 0.08 IU/mL [facility] [...] MD HEMATOLOGY ORDERABLE S Performing Organization Address [facility] Co de Phone Number [facility] [place] [address] * (ABNORMAL) pro-Brain Natriuretic Peptide (06/07/2021 5:26 PM EDT) NT-proBNP 2,701(H) <=124 pg/mL [facility] Blood Venous Draw / Unknown 06/07/2021 5:26 PM EDT 06/07/2021 5:44 PM EDT Narrative Resulting Agency Comment Spec In Lab Deja SANDRA CHEMISTRY ORDERABLES Performing Organization Address [facility]/ZIP Co de Phone Number [facility] [place] [address] * (ABNORMAL) Differential, Automated (06/07/2021 5:26 PM EDT) Pathologist [facility] Neutrophil % 74.6 % [facility] Neutrophil Absolute 8.97(H) 1.70 - 6.10 x10(3)/mc L [facility] Lymph % 15.9 % [facility] Lymphocytes Abs 1.9 0.9 - 3.2 x10(3)/mc L [facility] Monocyte % 6.0 % [facility] Monocyte Abs 0.7 0.3 - 0.9 x10(3)/[facility] Eos % 2.6 % [facility] Eosinophils Abs 0.3 0.0 - 0.4 x10(3)/[facility] Basophil % 0.5 % [facility] Baso Absolute 0.1 0.0 - 0.1 x10(3)/[facility] Immature Gran % 0.40 % [facility] Comment: Immature granulocytes(IG's)percentage and absolute count will include metamyelocytes, myelocytes, and promyelocytes. Blood smears from CBCs yielding IG's will be scanned manually for concordance. If this scan disagrees with the automated IG or if promyelocytes are noted, a manual differential will be performed. Immature Gran Absolute 0.05(H) 0.00 - 0.04 x10(3)/[facility] Blood 06/07/2021 5:26 PM EDT 06/07/2021 5:36 PM EDT Narrative Resulting Agency Comment Spec In Lab Deja SANDRA HEMATOLOGY ORDERABLE S [facility] [place] [address] * (ABNORMAL) Hemogram (06/07/2021 5:26 PM EDT) White Blood Cell 12.0(H) 4.0 - 9.5 x10(3)/[facility] Red Blood Cell 4.72 4.00 - 5.21 x10(6)/[facility] Hemoglobin 14.5 11.7 - 15.5 g/dL [facility] NRBC% auto 0.0 % [facility] NRBC Absolute 0.000 0.000 - 0.000 x10(3)/mc L [facility] Blood 06/07/2021 5:26 PM EDT 06/07/2021 5:36 PM EDT Narrative Resulting Agency Comment Spec In Lab Deja SANDRA HEMATOLOGY ORDERABLE S Performing Organization Address City/State/[facility] Co de Phone Number [facility] [place] [address] * BMP w/fasting Glucose (06/07/2021 5:26 PM [...] of Diabetes Mellitus, Position Statement from the [place] Diabetes [employer]. ??Diabetes Care, Volume 33, Supplement [...] MD CHEMISTRY ORDERABLES [facility] [place] [address] * T3 Total (06/07/2021 5:26 PM EDT) T3 Total 134 80 - 200 ng/dL [facility] Blood 06/07/2021 5:26 PM EDT 06/07/2021 5:36 PM EDT Narrative Resulting Agency Comment Spec In Lab Mario Hallman MD CHEMISTRY ORDERABLES Performing Organization Address City/[facility] Co de Phone Number [facility] [place] [address] * T4 Total (06/07/2021 5:26 PM EDT) T4 Total 6.8 5.3 - 11.6 mcg/dL [facility] Comment: Reference Interval (mcg/dL): Females: ??First Trimester: 6.3-13.5 ??Second Trimester: 7.1-14.3 ??Third Trimester: 6.9-14.1 Blood 06/07/2021 5:26 PM EDT 06/07/2021 5:36 PM EDT Narrative Resulting Agency Comment Spec In Lab Mario Hallman MD CHEMISTRY ORDERABLES Performing Organization Address [facility] Co de Phone Number [facility] [place] [address] * (ABNORMAL) TSH (06/07/2021 5:26 PM EDT) [facility] Thyroid Stimulating Hormone 5.83(H) 0.27 - 4.20 mcIU/mL [facility] Comment: Reference Interval (mcIU/mL): Females: ??First Trimester: 0.23-3.88 ??Second Trimester: 0.22-3.90 ??Third Trimester: 0.44-4.66 Blood 06/07/2021 5:26 PM EDT 06/07/2021 5:36 PM EDT Narrative Resulting Agency Comment Spec In Lab Mario Hallman MD CHEMISTRY ORDERABLES Performing Organization Address City/[facility] Co de Phone Number [facility] [place] [address] * Lipase (06/07/2021 5:26 PM EDT) Lipase 18 0 - 60 unit/L [facility] Blood 06/07/2021 5:26 PM EDT 06/07/2021 5:36 PM EDT Narrative Resulting Agency Comment Spec In Lab Mario Hallman MD CHEMISTRY ORDERABLES Performing Organization Address City/[facility]/ZIP Co de Phone Number [facility] [place] [address] * Amylase (06/07/2021 5:26 PM EDT) Amylase 39 28 - 100 unit/L [facility] Blood 06/07/2021 5:26 PM EDT 06/07/2021 5:36 PM EDT Narrative Resulting Agency Comment Spec In Lab Mario Hallman MD CHEMISTRY ORDERABLES Performing Organization Address City/[facility] Co de Phone Number [facility] [place] [phone] * Lipid Panel (Reflex Direct LDL) (06/07/2021 5:26 PM EDT) Cholesterol, Total 164 mg/dL [facility] Comment: Lower Risk: <200 mg/dL Average Risk: 200-239 mg/dL Higher Risk: >dj=286 mg/dL Triglyceride 144 mg/dL [facility] Comment: Average Risk/Lower Risk: <150 mg/dL Borderline High Risk: 150-199 mg/dL High Risk: 200-499 mg/dL Very High Risk: >wd=262 mg/dL HDL Cholesterol 44 mg/dL [facility] Comment: Males: ?? Higher Risk: <40 mg/dL Females: ?? Higher Risk: <50 mg/dL LDL Cholesterol 91 mg/dL [facility] Comment: Lowest Risk: <100 mg/dL Lower Risk: 100-129 mg/dL Borderline High Risk: 130-159 mg/dL High Risk: 160-189 mg/dL Very High Risk: >fq=154 mg/dL Cholesterol/HDL Ratio 3.[address] [facility] Lipid Interpretation See Note [facility] Comment: Lipid management should be guided by a patient? s ASCVD risk, goals and preferences. ACC/AHA Guidelines recommend high intensity statin if clinical ASCVD or LDL greater than or equal to 190 mg/dL. http://[employer].com/ERY-MMX-Vwspqotjp Adults aged 40-75 with LDL 70-189 mg/dL should have their 10 year ASCVD risk estimated with the ACC/AHA ASCVD risk senior electrical estimator http://tools.acc.org/ARXSV-Tikk-Zcyghfomx/ Statin should be discussed if risk greater [...] Hallman MD CHEMISTRY ORDERABLES Performing Organization Address City/[facility]/ZIP Co de Phone Number [facility] [place] [address] * CK (06/07/2021 5:26 PM EDT) Creatine Kinase 33 0 - 160 unit/L [facility] Blood 06/07/2021 5:26 PM EDT 06/07/2021 5:36 PM EDT Narrative Resulting Agency Comment Spec In Lab Mario Hallman MD CHEMISTRY ORDERABLES Performing Organization Address City/[facility]/ZIP Co de Phone Number [facility] [place] [address] * Hemoglobin A1c (06/07/2021 5:04 PM EDT) [...] Mellitus, Diabetes Care 2013; 36: Suppl. 1, S67-73 Estimated Average Glucose 114 mg/dL [facility] [...] into estimated average glucose values. ??Diabetes Care 2008:31(8):6625-6359. Blood 06/07/2021 5:04 PM EDT 06/07/2021 5:36 PM EDT Narrative Resulting Agency Comment Spec In Lab Mario Hallman MD CHEMISTRY ORDERABLES [facility] [place] [address] * Troponin (06/07/2021 5:04 PM EDT) Troponin-T [...] ischemia ?? New or presumed new significant BP-xhsfqsr-B wave (ST-T) changes or new left bundle [...] additional sample may be indicated. Reference: Third [place] Definition of Myocardial Infarction. Journal of the [place] [employer] 2012;60:1581-98 Blood 06/07/2021 5:04 PM EDT 06/07/2021 5:36 PM EDT Narrative Resulting Agency Comment Spec In Lab Mario Hallman MD CHEMISTRY ORDERABLES Performing Organization Address City/State/[facility] Co de Phone Number [facility] [place] [address] * EKG 12 Lead (06/07/2021 4:33 PM EDT) Pathologist [facility] Ventricular rate 54 BPM MUSE SYSTEM Atrial Rate 54 BPM MUSE SYSTEM P-R Interval 166 ms MUSE SYSTEM QRS Duration 86 ms MUSE SYSTEM Q-T Interval 514 ms MUSE SYSTEM QTC Calculated (Bezet) 487 ms MUSE SYSTEM Calculated P [place] 30 degrees MUSE SYSTEM Calculated R [place] 22 degrees MUSE SYSTEM Calculated T [place] 18 degrees MUSE SYSTEM INTERPRETATION Sinus bradycardia Left atrial enlargement Cannot rule out Lateral infarct , age undetermined Abnormal ECG When compared with ECG of 31-AUG-2019 07:05, No significant change was found Confirmed by MD Dalia, Willy Huerta ([id number]) on 06/09/2021 4:36:27 PM MUSE SYSTEM 06/07/2021 [...] using the Simplexa COVID-19 Direct Assay by [employer] as authorized by the FDA issued Emergency [...] and Laboratory Medicine at [facility], certified under the Clinical Laboratory Improvement Amendments [...] fact sheets at the following FDA website: https://www.fda.gov/medical-devices/dlajwjfwwhz-ttpzpoh-4833-vshxv-27-ztlxannck- use-a iantuxvikijth-qseyowu-qvtpfuy/kpisk-yoypkzwynel-baho SARS-CoV-2 Source DECORATING INSPECTOR Swab MA [facility] Nasopharyngeal Swab 06/08/19 4:30 PM EDT 06/07/2021 4:45 PM EDT Comment:Symptoms->Surveillan ce Narrative Resulting Agency Comment Spec In Lab Mario Hallman MD MICROBIOLOGY - GENER AL ORDERABLES [facility] [place] [address] documented in this encounter Visit Diagnoses Not [...] mg, Oral, EVERY EVENING, First dose on [facility] 06/07/21 at 1845, Until Discontinued, Routine Given [...] Inhalation, 2 TIMES DAILY, First dose on [facility] 06/07/21 at 2100, Until Discontinued, Routine Given 06/07/2021 8:25 PM EDT 2 .Inhalat ion clopidogreL (Plavix) tablet 75 mg 75 mg, Oral, DAILY, First dose on [place] 06/08/21 at 0900, Until Discontinued, Routine Given 06/08/2021 9:08 AM EDT [address] (Cymbalta) capsule 60 mg 60 mg, Oral, DAILY, First dose on [facility] 06/07/21 at 1845, Until Discontinued, Routine Given 06/08/2021 9:02 PM EDT 60 mg Given 06/07/2021 9:00 PM EDT 60 mg empagliflozin (Jardiance) Tab 10 mg 10 mg, Oral, DAILY, First dose on [place] 06/08/21 at 1545, Until Discontinued, Routine Given [...] 40 mg, Intravenous, ONCE, 1 dose, On [place] 06/08/21 at 1545 Given 06/08/2021 5:01 PM [...] - Provider: Colette Medina RN) 0853 (BANNER Hold - Provider: Admin Adt - Reason: Transfer to a Procedural area)0929 (BANNER Unhold - Provider: Admin Adt) empagliflozin (Jardiance) Tab 10 mg 10 mg, Oral, DAILY, First dose on 06/08/21 at 1545, Until Discontinued, Routine 1717 (Given - Provider: Jo Ann Maldonado RN - Comment: awaiting medication from pharmacy) 0853 (BANNER Hold - Provider: Admin Adt - Reason: Transfer to a Procedural area)0900 (Automatically Held - Provider: Admin Adt)0929 (BANNER Unhold - Provider: Admin Adt)0940 (Given - [...] only takes this as needed.) 0853 (BANNER Hold - Provider: Admin Adt - Reason: Transfer to a Procedural area)0900 (Automatically Held - Provider: Admin Adt)0929 (BANNER Unhold - Provider: Admin Adt) furosemide (Lasix) [...] (Automatically Held - Provider: Admin Adt)0929 (BANNER Unhold - Provider: Admin Adt)0939 (Given - [...] - Comment: only takes as needed)0929 (BANNER Unhold - Provider: Admin Adt) metoprolol tartrate [...] met - Comment: HR 56) 0853 (BANNER Hold - Provider: Admin Adt - Reason: Transfer to a Procedural area)899 (Not Given - Provider: Jo Ann Maldonado RN - Reason: Order parameters not met - Comment: HR 48)0929 (BANNER Unhold - Provider: Admin Adt) montelukast (Singulair) tablet 10 mg 10 mg, Oral, NIGHTLY, First dose on 06/07/21 at 2099, Until Discontinued 2025 (Given - Provider: Olive Anne RN) 2058 (Given - Provider: Colette Medina RN) 0853 (BANNER Hold - Provider: Admin Adt - Reason: Transfer to a Procedural area)09 (BANNER Unhold - Provider: Admin Adt) rOPINIRole (Requip) tablet 1 mg 1 mg, Oral, NIGHTLY, First dose on 06/07/21 at 2100, Until Discontinued, Routine 2025 (Given - Provider: Olive Anne RN) 2058 (Given - Provider: Colette Medina RN) 0853 (BANNER Hold - Provider: Admin Adt - Reason: Transfer to a Procedural area)09 (BANNER Unhold - Provider: Admin Adt) topiramate (Topamax) tablet 50 mg 50 mg, Oral, 2 TIMES DAILY, First dose on 06/07/21 at 2100, Until Discontinued, Routine 2024 (Given - Provider: Olive Anne RN) 100 (Given - Provider: Jo Ann Maldonado RN - Comment: awaiting medication from pharmacy)2110 (Given - Provider: Colette Medina RN) 0853 (BANNER Hold - Provider: Admin Adt - [...] 2053, Until 06/09/21 at 1531, Headaches 0853 (BANNER Hold - Provider: Admin Adt - Reason: Transfer to a Procedural area)0929 (BANNER Unhold - Provider: Admin Adt) albuteroL (Proventil) nebulizer solution 2.5 mg 2.5 mg, Nebulization, EVERY 4 HOURS PRN, Starting on 06/07/21 at 1808, Until 06/09/21 at 1531, Shortness of Breath, Routine 0853 (BANNER Hold - Provider: Admin Adt - Reason: Transfer to a Procedural area)0929 (BANNER Unhold - Provider: Admin Adt) atropine (0.1 [...] 2116 (Given - Provider: Colette Medina RN) 0882 (MAY Hold - Provider: Admin Adt - [...] Routine documented in this encounter Care Teams Vault Cashier Relationship Specialty Start Date End Date Polo Pearce PA [address] [place] [address] PCP - General Internal Medicine 06/09/21 documented as of this encounter
--- OUTSIDE RECORDS SUMMARY | 2024-04-10 17:12 | XMS_ITS | Encounter Summary ---
[place] [address] Care Team Providers Care Gold Miner Blasting Name Role Phone Tim Rogers DNP Primary Care Provider [phone] Encounter Details Date Type Department Care Team (Late st Contact Info) Description 05/28/2021 [place] [phone] Beryl Grider Social History Tobacco Use Types [...] 3:00 PM EDT Office [place] [address] Mary Reyes, C[place] [place] [address] documented as of this encounter Visit Diagnoses Not on filedocumented in this encounter Care Teams Gold Miner Blasting Relationship Specialty Start Date End Date Tim Rogers DNP [facility] [address] [address] PCP - General Family Medicine 08/28/19 06/08/21 documented as of this encounter
--- OUTSIDE RECORDS SUMMARY | 2024-04-10 17:12 | XMS_ITS | Encounter Summary ---
[place] [address] Care Team Providers Care School Teacher Name Role Phone Tim Rogers DNP Primary Care Provider [phone] Encounter Details Date Type Department Care Team (Late st Contact Info) Description 07/12/2020 Telephone [place] [phone] Jo Ann Colon Social History Tobacco Use [...] PM EDT Office [place] [phone] [place] [address] documented as of this encounter Visit Diagnoses Not on filedocumented in this encounter Care Teams School Teacher Relationship Specialty Start Date End Date Tim Rogers DNP [address] [place] [address] PCP - General Family Medicine 08/28/19 06/08/21 documented as of this encounter
--- OUTSIDE RECORDS SUMMARY | 2024-04-10 17:12 | XMS_ITS | Encounter Summary ---
[place] [address] Care Team Providers Care Microsoft Dynamics Manager Architect Name Role Phone Tim Rogers DNP Primary Care Provider [phone] Reason for Visit * Reason Onset Date Comments Appointment 09/12/2020 Follow up Encounter Details Date Type Department Care Team (Late st Contact Info) Description 09/12/2020 Telephone [place] [address] Renetta Graham RN Appointment (Follow [...] 3:00 PM EDT Office [place] [address] [place] [address] documented as of this encounter Visit Diagnoses Not on filedocumented in this encounter Care Teams Microsoft Dynamics Manager Architect Relationship Specialty Start Date End Date Tim Rogers DNP [address] [facility] [address] [place] [address] PCP - General Family Medicine 08/28/19 06/08/21 documented as of this encounter
--- OUTSIDE RECORDS SUMMARY | 2024-04-10 17:12 | XMS_ITS | Encounter Summary ---
[place] [address] Care Team Providers Care Cake Wringer Name Role Phone Tim Rogers DNP Primary Care Provider [phone] Reason for Visit * Reason Onset Date Comments Other 10/18/2020 Pt requesting ca ll back from MD Encounter Details Date Type Department Care Team (Late st Contact Info) Description 10/18/2020 [place] [phone] Olive Gonzales RN Other (Pt requesting call [...] [facility] / Pager: [phone] documented in this encounter Plan of Treatment Upcoming Encounters Date Type Department Care Team (Late st Contact Info) Description 07/19/2024 3:00 PM EDT Office [place] [address] [place] [address] documented as of this encounter Visit Diagnoses Not on filedocumented in this encounter Care Teams Cake Wringer Relationship Specialty Start Date End Date Tim Rogers DNP [address] [place] [address] PCP - General Family Medicine 08/28/19 06/08/21 documented as of this encounter
--- OUTSIDE RECORDS SUMMARY | 2024-04-10 17:12 | XMS_ITS | Encounter Summary ---
Author Organization [facility] [place] [address] Care Team Providers Care Curve Saw Operator Name Role Phone Tim Rogers DNP Primary Care Provider [phone] Reason for Visit * Reason Comments Referral Dyspnea On Exertion * Consultation (Routine) - Specialty Diagnoses / Procedures Referred By Jayant harris Referred To Contact Pulmonology Diagnoses Other forms of dyspnea Virginia Neal MD [facility] [address] [place] [address] [facility] Pulmonology [address] [place] [phone] Referral ID Status Reason Start Date Expiration Date V isits Requested Visits Authorized [id number] Consult, [facility] PCP Updated and/or Approved 04/05/2020 10/02/2020 6 6 Encounter Details Date Type Department Care Team (Latest Contact Info) Description 08/01/2020 1:00 PM EDT Office [place] [address] Beto Miller MD [facility] [place] [address] Asthma, chronic, moderate persistent, uncomplicated [...] Miller MD - 08/01/2020 1:00 PM EDT [facility] Section of Pulmonary Medicine Outpatient Consultation Date of Encounter: 08/01/2020 Referring Provider: Virginia Neal Md [address] [place] [address] PCP: [address] [place] [address] Reason for Consult: I was asked to [...] ONCE ??? fluticasone propionate (FLONASE) 50 mcg/actuation [place], Suspension 1 spray by Each Nare route [...] CT scan of the chest performed in [facility]. 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 She has been prescribed Symbicort but [...] MD Pulmonary and Critical Care Medicine Pager #[phone] documented in this encounter Plan of Treatment Upcoming Encounters Date Type Department Care Team (Late st Contact Info) Description 07/19/2024 3:00 PM EDT Office [place] [address] [place] [address] documented as of this encounter Visit Diagnoses Diagnosis Asthma, chronic, moderate persistent, uncomplicated documented in this encounter Care Teams Curve Saw Operator Relationship Specialty Start Date End Date Tim Rogers DNP [address] [place] [address] PCP - General Family Medicine 08/28/19 06/08/21 documented as of this encounter
--- OUTSIDE RECORDS SUMMARY | 2024-04-10 17:12 | XMS_ITS | Encounter Summary ---
[place] [address] Care Team Providers Care Finance Manager Name Role Phone Tim Rogers DNP Primary Care Provider [phone] Encounter Details Date Type Department Care Team (Latest Contact Info) Description 08/01/2020 11:42 AM EDT - 08/01/2020 11:59 PM EDT Hospital [place] [phone] Dyspnea, unspecified type Discharge Disposition: Home Social [...] as needed. fluticasone propionate (FLONASE) 50 mcg/actuation [place], Suspension 1 spray by Each Nare route [...] 3:00 PM EDT Office [place] [phone] [place] [address] documented as of this encounter Procedures Procedure [...] / FVC LLN 69 % COMPAS PFT [id number] Actual Pre-BD 3.14 L/s COMPAS PFT IWN92-38 Pre-BD % of Predicted 116 % COMPAS PFT MVU91-55 Predicted 2.70 L/s COMPAS PFT BJH62-77 Pre-BD Z-Score 0.51 COMPAS PFT FVC Actual [...] PFT FEV1/FVC Post-BD Z-Score 1.94 COMPAS PFT IIU22-85 Actual Post-BD 4.26 L/s COMPAS PFT KUL40-13 Post-BD % of Predicted 158 % COMPAS PFT YDG94-91 Post-BD Z-Score 1.67 COMPAS PFT DLCO Hb [...] type documented in this encounter Care Teams Finance Manager Relationship Specialty Start Date End Date Tim Rogers DNP [address] [place] [address] PCP - General Family Medicine 08/28/19 06/08/21 documented as of this encounter
--- OUTSIDE RECORDS SUMMARY | 2024-04-10 17:12 | XMS_ITS | Encounter Summary ---
[place] [address] Care Team Providers Care Front Desk Associate Name Role Phone Tim Rogers DNP Primary Care Provider Encounter Details Date Type Department Care Team (Late st Contact Info) Description 05/02/2021 Ancillary Procedure Radiology Library at [facility] [place] [address] Tim Rogers DNP [facility] [address] [place] [address] Social History Tobacco Use Types Packs/Day Years [...] PM EDT Office Visit Gastroenterology at [facility] [place] [phone] Mary Reyes APRN [facility] [place] [address] documented as of this encounter Procedures Procedure Name Priority Date/Time Associated Diagnosis Comments FILM LIBRARY STORAGE ONLY DX CHEST Routine 05/02/2021 12:00 AM EST documented in this encounter Results * Film Library- Storage Only DX Chest (05/02/2021 12:00 AM EST) Narrative [facility] - 05/30/2021 2:33 PM EDT This exam is auto-finalizing. It's purpose is for storage only. Tim Rogers DNP [facility] FILM LIBRARY OR DERABLES Performing Organization Address City/State/[facility] Co de Phone Number [place], [place] documented in this encounter Visit Diagnoses Not on filedocumented in this encounter Care Teams Front Desk Associate Relationship Specialty Start Date End Date Tim Rogers DNP [address] [place] [address] PCP - General Family Medicine 08/28/19 06/08/21 documented as of this encounter
--- OUTSIDE RECORDS SUMMARY | 2024-04-10 17:12 | XMS_ITS | Encounter Summary ---
[place] [address] Care Team Providers Care Family Medicine Chair Name Role Phone Tim Rogers DNP Primary Care Provider Encounter Details Date Type Department Care Team (Late st Contact Info) Description 03/23/2021 Ancillary Procedure Radiology Library at [facility] [place] [address] Tim Rogers DNP [facility] [address] [place] [address] Social History Tobacco Use Types Packs/Day Years [...] 3:00 PM EDT Office Visit Gastroenterology at [facility] [place] [phone] Mary Reyes APRN [facility] [place] [address] documented as of this encounter Procedures Procedure Name Priority Date/Time Associated Diagnosis Comments FILM LIBRARY STORAGE ONLY DX CHEST Routine 03/23/2021 12:00 AM EST documented in this encounter Results * Film Library- Storage Only DX Chest (03/23/2021 12:00 AM EST) Narrative [facility] - 04/03/2021 11:45 AM EST This exam is auto-finalizing. It's purpose is for storage only. Tim Rogers DNP [facility] FILM LIBRARY OR DERABLES Performing Organization Address City/State/[facility] Co de Phone Number [place], [place] documented in this encounter Visit Diagnoses Not on filedocumented in this encounter Care Teams Family Medicine Chair Relationship Specialty Start Date End Date Tim Rogers DNP [address] [place] [address] PCP - General Family Medicine 08/28/19 06/08/21 documented as of this encounter
--- OUTSIDE RECORDS SUMMARY | 2024-04-10 17:12 | XMS_ITS | Encounter Summary ---
Author Organization [facility] [address] Care Team Providers Care Respiratory Director Name Role Phone Tim Rogers DNP Primary Care Provider [phone] Encounter Details Date Type Department Care Team (Late st Contact Info) Description 10/21/2020 Telephone [place] [address] Beto Miller MD [facility] [place] [address] Social History Tobacco Use Types Packs/Day Years [...] 1: 80, normal SSA, SSB, Alcantar antibody, CONSULTANT INTERN antibody, ANCA, MPO antibody, KY-3 antibody, serum RITCHIE, CBC, BMP and CRP [...] Question: Where will study be performed? Answer: [facility] Order Specific Question: Apply for 7 or 14 days? Answer: 14 Beto Miller MD documented in this encounter Plan of Treatment Upcoming Encounters Date Type Department Care Team (Late st Contact Info) Description 07/19/2024 3:00 PM EDT Office Visit [place] [address] [place] [address] documented as of this encounter Visit Diagnoses Diagnosis Palpitations documented in this encounter Care Teams Respiratory Director Relationship Specialty Start Date End Date Tim Rogers DNP [address] [place] [address] PCP - General Family Medicine 08/28/19 06/08/21 documented as of this encounter
--- OUTSIDE RECORDS SUMMARY | 2024-04-10 17:12 | XMS_ITS | Encounter Summary ---
Author Organization [facility] [place] [address] Care Team Providers Care Mail Deliverer Name Role Phone Tim Rogers DNP Primary Care Provider [phone] Encounter Details Date Type Department Care Team (Late st Contact Info) Description 09/09/2020 Telephone [place] [address] Beto Miller MD [facility] [place] [address] Social History Tobacco Use Types Packs/Day Years [...] ?? I reviewed CT scans performed in [facility] in 2019 (w/contrast) and April [...] the 2020 CT given the motion artifacts. Pharmacist Critical Care images are below Combination of eosinophilia, adenopathy, [...] Diff) Please fax results to Dr Miller [phone] Standing Status: Future Standing Expiration Date: 03/11/2021 ??? Basic Metabolic Panel (non-fasting) Please fax results to Dr Miller [phone] Standing Status: Future Standing Expiration Date: 03/11/2021 ??? KATHRINE ([facility]/CGP/APD/[facility]) Please fax results to Dr Miller [phone] Standing Status: Future Standing Expiration Date: 03/11/2021 ??? Extractable Nuclear Antigen (JNENA) Ab Please fax results to Dr Miller [phone] Standing Status: Future Standing Expiration Date: 03/11/2021 ??? Angiotensin Converting Enzyme Please fax results to Dr Miller [phone] Standing Status: Future Standing Expiration Date: 03/11/2021 ??? CRP, acute inflammation Please fax results to Dr Miller [phone] Standing Status: Future Standing Expiration Date: 03/11/2021 ??? Cytoplasmic Neutrophilic Ab Please fax results to Dr Miller [phone] Standing Status: Future Standing Expiration Date: 09/09/2021 ??? Myeloperoxidase Ab Please fax results to Dr Miller [phone] Standing Status: Future Standing Expiration Date: 09/09/2021 ??? Proteinase-3 Antibody Please fax results to Dr Miller [phone] Standing Status: Future Standing Expiration Date: 09/09/2021 ??? Immunoglobulin E (IgE) Please fax results to Dr Miller [phone] Standing Status: Future Standing Expiration Date: 09/09/2021 ??? Immunoglobulins, Quantitative Standing Status: Future Standing Expiration Date: 09/09/2021 documented in this encounter Plan of Treatment Upcoming Encounters Date Type Department Care Team (Late st Contact Info) Description 07/19/2024 3:00 PM EDT Office Visit [place] [address] [place] [address] documented as of this encounter Visit Diagnoses Diagnosis Acute recurrent sinusitis, unspecified location RAVI (dyspnea on exertion) Other dyspnea and respiratory abnormality Abnormal CT of the chest Nonspecific (abnormal) findings on radiological and other examination of other intrathoracic organs documented in this encounter Care Teams Mail Deliverer Relationship Specialty Start Date End Date Tim Rogers, [place] [address] [place] [address] PCP - General Family Medicine 08/28/19 06/08/21 documented as of this encounter
--- OUTSIDE RECORDS SUMMARY | 2024-04-10 17:12 | XMS_ITS | Encounter Summary ---
[place] [address] Care Team Providers Care Controller Operations And Hr Manager Name Role Phone Polo Pearce Primary Care Provider [phone] Reason for Referral * Diagnostic Test (Routine) - Closed Specialty Diagnoses / Procedures Referred By Jayant harris Referred To Contact Cardiology Diagnoses Elevated blood pressure reading without diagnosis of hypertension Procedures Ziopatch 48 Hrs-15 Days Deja Zaidi, JOCY [address] [address] [facility] [place] [address] Referral ID Status Reason Start Date Expiration Date V isits Requested Visits Authorized [id number] Closed Specialty Service Requested 06/09/2021 12/09/2021 1 1 Reason for Visit * Auth/Cert Specialty Diagnoses / Procedures Referred By Jayant harris Referred To Contact Diagnoses NSTEMI (non-ST elevated myocardial infarction) NSTEMI Procedures EMERGENCY OBSVO Referral ID Status Reason Start Date Expiration Date Visits Re quested Visits Authorized [id number] 1 1 Encounter Details Date Type Department Care Team (Latest Contact Info) Description 06/07/2021 3:49 PM EDT - 06/09/2021 3:25 PM EDT Hospital Encounter Intermediate Cardiac Care Unit [facility] [place] [address] Mario Hallman MD [facility] [place] [address] NSTEMI (non-ST elevated myocardial infarction); Elevated blood [...] Loida Roque Patient Age: 51 y.o. Language: Estonian Race: [...] in a week and prn ?? Consider [place] as an out patient Inpatient Provider Contact Information: Dr. Mario Zaidi PA-C [phone] Discharge Diagnoses (Hospital Problems) and Secondary Diagnoses [...] change from prior in 08/2019. ?? Procedure Complete-25209. Image enhancement Definity was used for left [...] who have questions please contact the health transitions rn care coordinator that requested your imaging first. CXR 06/08/2021 [...] 15. ?? Hospital Course: On admission to [facility], the patient had no complaints of chest pain or shortness of breath at rest.Telemetry was attached which showed normal sinus rhythm. Heparin drip was infusing. [facility] records/transfer records were reviewed. Baseline labs were checked and/or drawn. Chest Pain, HI ruled out, Echo showed preserved LVEF Given the patient's risk factors, chronic non-specific ST-T changes on ECG, and here at [facility] normaltroponin as well [...] significant weight, however during her stay at [facility] now she lost [...] needed Follow up Appointments: PCP Tim Rogers, ASSISTANT MANAGER BILINGUAL [phone] to see you in a week (patient to set this up) Mel placed on 06/09/2021 Cardiology to see in a month and prn. Dr. Kinsey to see the patient in [place] on July 23 at 920 am. Please call [phone] with questions. Home oxygen therapy: N/A Arrangements for VNA/home care: none Future Appointments and Orders Future Appointments and Orders Future Appointments Provider Department Dept Phone 07/23/2021 8:20 AM Jaspreet Kinsey MD Cardiology at [place] Arrive at: [facility] [address] [phone] Future Orders Complete By Expires Mel 48 Hrs-15 Days [[id number] CPT(R)] 06/09/2021 12/09/2021 Process Instructions: Scheduling Instructions: Questions: Does the patient have a pacemaker? If yes provide HI/LO settings: Apply for 7 or 14 days?: 14 Where will study be performed?: [facility] Clinics Basic Metabolic Panel (non-fasting) [LAB15 Custom] 06/16/2021 (Approximate) 06/09/2022 Process Instructions: INCLUDES: Calcium, BUN, Creat, GFR, Glucose, Lytes Scheduling Instructions: Comments: Questions: Discharge References/Attachments None documented in this encounter Discharge Instructions * Discharge Instructions* Deja Zaidi PA - 06/08/2021 1:56 PM EDT Return to work: One week Driving: as needed Follow up Appointments: PCP Tim Rogers, ASSISTANT MANAGER BILINGUAL [phone] to see you in a week (patient to set this up) Mel placed on 06/09/2021 Cardiology to see in a month and prn. Dr. Kinsey to see the patient in [place] on July 23 at 920 am. Please call [phone] with questions. Home oxygen therapy: N/A Arrangements for VNA/home care: none documented in this encounter Medications at Time of Discharge Medication Sig Dispensed Refills Start Date End Date rOPINIRole (Requip) 1 mg Tablet Take 2 mg by mouth 2 times daily. 07/16/2020 loratadine (Claritin) 10 mg Tablet Take 10 mg by mouth daily as needed. fluticasone propionate (FLONASE) 50 mcg/actuation [place], Suspension 1 spray by Each Nare route [...] Nutrition Plan: Pt seen for Na2gm diet. Physician General Internal Medicine informed pt of current diet orders and their restrictions. Pt expressed understanding and informed this global technical writer that she tries to limit salt use at home. Physician General Internal Medicine and pt discussed common sources of sodium (pre-prepared foods) and alternatives (fresh/frozen veggies). Provided educational material and encouraged pt to reach out with any questions or concerns. Will continue to monitor and follow up. Continue current diet. Monitor weight. Encourage good oral intake. Support and encouragement provided. 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 Rocio Rosenthal Pager: [phone] * Deja Zaidi PA - 06/09/2021 9:14 AM EDT Inpatient Cardiology Discharge Day Note Patient Name: Loida Roque Service: BINITROTOLUENE OPERATOR / PA Responsible Attending: Mario Hallman [...] (from the past 24 hour(s)) urine, qualitative ([place]/[facility]/CGP/NL) Result Value Ref Range Spec [place] UA 1.010 1.006 - 1.030 HCG Qual [...] seen on recent CT scan presents to [facility] from [facility] with a NSTEMI. [...] with Dr. Hallman. ?? JOCY Hernandez Pager [phone] JOCY MCKOY 06/09/2021 Associated attestation - Mario Hallman MD - 06/09/2021 9:37 PM EDT Cardiology Attending Addendum I shared this visit with JOCY Zaidi and guided the medical decision- making. I explained to patient the findings of echo, R heart catheterization and our diagnostic impression and medications (furosemide and empagliflozin) and possible adverse events. More than 30 minutes were spent in tdja-[id number]-puga contact with patient and with arranging discharge [...] Jaspreet Pardo - 06/08/2021 8:34 PM EDT Lepidopterist Encounter Note Patient Name: Loida Roque : [id number] MR#: [id number] Admit Date: 06/07/2021 3:49 PM Hospital Day 0 days Narrative: Initial rounding visit to introduce vacuum furnace operator services and to assess patient interest. Patient [...] Day Note Patient Name: Loida Roque Service: BINITROTOLUENE OPERATOR / PA Responsible Attending: Mario Hallman [...] PCR Not Detected Not Detected SARS-CoV-2 Source BINITROTOLUENE OPERATOR Swab Troponin Result Value Ref Range [...] seen on recent CT scan presents to [facility] from [facility] with a NSTEMI. [...] with Dr. Hallman. ?? 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 ??? fluticasone propionate (FLONASE) 50 mcg/actuation [place], Suspension 1 spray by Each Nare route [...] seen on recent CT scan presents to [facility] from [facility] with a NSTEMI. She has an elevated trop, BNP and lateral EKG changes. Patient is now awaiting an Echo and cardiac cath. Neurology consult called in to determine if she needs imaging prior to her Echo and cath given garbled speech a week ago. Stable at this time. TREATMENT PLAN: NSTEMI Admit to [facility] for telemetry monitoring Serial enzymes and EKGs [...] JOCY Hernandez 06/07/2021 Provider: JOCY MCKOY Pager [phone] 06/07/2021 Associated attestation - Mario Hallman MD [...] COVID test: Lab Results Component Value Date [id number] Not Detected 06/07/2021 Present on Admission: ??? [...] Primary care provider on file: Tim Rogers, ASSISTANT MANAGER BILINGUAL [phone] Pharmacy: [facility] - [place], [place] - [address] [facility] [address] [place] [id number] Advance Care Planning: Attempt Cardiopulmonary Resuscitation - Inpatient <no information> -Advanced Directive: No, declines (Boby (spouse) SDM) Current Functional Ability: Independent Functional Status Prior to Admission: Independent Home Environment: Others in the home: spouse. Current Living Arrangements: home/apartment/condo. Accessibility Concerns: . Current DME: none [address] [facility] [address] Social & Family Supports: All names listed [...] private vehicle when medically ready. Registered Nurse Neonatal Icu Coordinator / Organic Search Lead will continue to follow patient???s progress and [...] Daily. ??? 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 Consider TECHNICIAN SUBMARINE CABLE EQUIPMENT consult for full evaluation and diet recommendations. [...] for further details. JOCY MCKOY 06/07/2021 Pager [phone] documented in this encounter Plan of Treatment Upcoming Encounters Date Type Department Care Team (Late st Contact Info) Description 07/19/2024 3:00 PM EDT Office [place] [address] [place] [address] documented as of this encounter Procedures Procedure [...] Modality Other Narrative 07/01/2021 9:29 AM EDT [facility] ? Zio Patch? Ambulatory Cardiac [...] atrial premature beat conducted with a prolonged GA interval, strongly suggestive of atrioventricular makayla reentrant [...] Other Narrative 06/09/2021 9:09 AM EDT ?[facility] ? Cardiac Catheterization/Intervention Report ? Patient Name: Neisha, Loida ? Procedure Date: 06/09/2021 ? A #: [id number] ? Primary Physician: Aaron Ash ? Case #: [id number] ? File Name: [id number] ? Catheterization Order Number: [id number] ? [facility] ?[facility] ? Final Report [place], [place] ? Patient Name: ? Loida Neisha ? ID#: ?[id number] ? : ?1970 ? Procedure Date: ? [...] was ?designated as ASA Class III. The [facility] clinical frailty scale is 2: Well. [...] was Urgent. 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 Chest pain [...] Note Aaron Ash MD - 06/23/2021 [facility] Cardiac Catheterization/Intervention Report Patient Name: Loida Roque Procedure Date: 06/09/2021 A #: [id number] Primary Physician: Aaron Ash Case #: [id number] File Name: [id number] Catheterization Order Number: [id number] [facility] FinalReport [place], [place] Patient Name: Loida Roque ID#:[id number] :1970 Procedure Date: June 09, 2021 Case [...] patientwas designated as ASA Class III. The [facility] clinical frailty scale is 2:Well. Diagnostic [...] procedure was Urgent. The indicationfor the laborer visit is other indication. Chest pain [...] pro-Brain Natriuretic Peptide (06/09/2021 3:37 AM EDT) [facility] NT-proBNP 911(H) <=124 pg/mL [facility] Blood Venous Draw / Unknown 06/09/2021 3:37 AM EDT 06/09/2021 3:59 AM EDT Narrative Resulting Agency Comment Spec In Lab Deja SANDRA CHEMISTRY ORDERABLES [facility] [place] [address] * Differential, Automated (06/09/2021 3:37 AM EDT) [facility] Neutrophil % 64.9 % [facility] Neutrophil Absolute 5.12 1.70 - 6.10 x10(3)/[facility] Lymph % 21.9 % [facility] Lymphocytes Abs 1.7 0.9 - 3.2 x10(3)/[facility] Monocyte % 8.6 % [facility] Monocyte Abs 0.7 0.3 - 0.9 x10(3)/[facility] Eos % 3.4 % [facility] Eosinophils Abs 0.3 0.0 - 0.4 x10(3)/[facility] Basophil % 0.8 % [facility] [...] - 0.04 x10(3)/[facility] Blood 06/09/2021 3:37 AM EDT 06/09/2021 3:58 AM EDT Narrative Resulting Agency Comment Spec In Lab Deja SANDRA HEMATOLOGY ORDERABLE S Performing Organization Address City/State/[facility] Co de Phone Number [facility] [place] [address] * (ABNORMAL) Hemogram (06/09/2021 3:37 AM EDT) White Blood Cell 7.9 4.0 - 9.5 x10(3)/ L [facility] Red Blood Cell 4.88 4.00 - 5.21 x10(6)/[facility]ORY Hemoglobin 15.2 11.7 - 15.5 g/dL [facility] Hematocrit 46.5(H) 35.7 - 45.8 % [facility] Mean Cell Volume 95.3(H) 82.6 - 94.4 fL [facility] Mean Cell Hemoglobin 31.1 27.1 - 32.0 pg [facility] Mean Cell Hemoglobin Concentration 32.7 31.7 - 35.0 g/dL [facility] Platelet 334 145 - 357 x10(3)/ L [facility] RDW Standard Deviation 49.2(H) 37.0 - 46.0 fL [facility] RDW coefficient of variation 14.5(H) 11.5 - 14.1 % [facility] Mean Platelet Volume 10.2 7.6 - 12.9 fL [facility] NRBC% auto 0.0 % [facility] NRBC Absolute 0.000 0.000 - 0.000 x10(3)/mc L [facility] Blood 06/09/2021 3:37 AM EDT 06/09/2021 3:58 AM EDT Narrative Resulting Agency Comment Spec In Lab Deja SANDRA HEMATOLOGY ORDERABLE S Performing Organization Address City/[facility] Co de Phone Number [facility] [place] [phone] * (ABNORMAL) BMP w/fasting Glucose (06/09/2021 3:37 [...] Urea Nitrogen 23(H) 8 - 18 mg/dL [facility] [...] [facility] Carbon Dioxide 22 22 - 31 mmol/L [facility] Anion Gap 13 5 - 15 mmol/L [facility] Calcium 9.3 8.5 - 10.5 mg/dL [facility] Est Glomerular Filtration Rate 78 >=60 mL/min/1. 73 m?? [facility] [place] [...] [facility] [place] [address] * Heparin (unfractionated) Level (06/08/2021 4:07 PM EDT) UF Heparin <0.04 IU/mL [facility] [...] [facility] [place] [address] * XR Chest PA & Lateral (Generic) [...] who have questions please contact the health transitions rn care coordinator that requested your imaging first. ? Electronically signed by: Magda Machado MD, [facility] ([phone]), at 06/08/2021 6:00 PM Narrative 06/08/2021 6:00 [...] patients who have questions please contactthe health transitions rn care coordinator that requested your imaging first. Electronically signed by: Magda Machado MD, [facility] ([phone]), at 06/08/2021 6:00 PM Mario Hallman MD [...] who have questions please contact the health transitions rn care coordinator that requested your imaging first. ? Electronically signed by: Kiran Cantor MD, [facility] ([phone]), at 06/08/2021 2:35 PM Narrative 06/08/2021 2:35 [...] patients who have questions please contactthe health transitions rn care coordinator that requested your imaging first. Electronically signed by: Kiran Cantor MD, [facility]([phone]), at 06/08/2021 2:35 PM Mario Hallman MD [facility] MRI ORDERABLES * (ABNORMAL) CRP, acute inflammation (06/08/2021 11:58 AM EDT) C-Reactive Protein 28.1(H) <=4.9 mg/L [facility] Blood 06/08/2021 11:5 8 AM EDT 06/08/2021 12:04 PM EDT Narrative Resulting Agency Comment Spec In Lab Mario Hallman MD CHEMISTRY ORDERABLES Performing Organization Address [facility] Co de Phone Number [facility] [place] [address] * CK (06/08/2021 11:58 AM EDT) Creatine Kinase 30 0 - 160 unit/L [facility] Blood 06/08/2021 11:5 8 AM EDT 06/08/2021 12:04 PM EDT Narrative Resulting Agency Comment Spec In Lab Mario Hallman MD CHEMISTRY ORDERABLES Performing Organization Address [facility] de Phone Number [facility] [place] [address] * (ABNORMAL) Sedimentation rate (06/08/2021 11:58 AM EDT) Sedimentation Rate Automated 53(H) 2 - 39 mm/hr [facility] [...] ORDERABLE S Performing Organization Address [facility] Co de Phone Number [facility] [place] [address] * Heparin (unfractionated) Level (06/08/2021 11:58 AM EDT) UF Heparin 0.77 IU/mL [facility] [...] ORDERABLE S Performing Organization Address [facility] Co de Phone Number [facility] [place] [address] * urine, qualitative ([place]/[facility]/CGP/NLH) (06/08/2021 11:51 AM EDT) Specific [place] Urine Automated 1.010 1.006 - 1.030 [facility] Human Chorionic Gonadotropin Qualitative, Urine Negative [facility] Comment: Dilute urine samples can result in a false negative test. Repeat testing on a first morning sample or a plasma quantitative hCG measurement is recommended. Urine 06/08/2021 11:5 1 AM EDT 06/08/2021 12:32 PM EDT Narrative Resulting Agency Comment Spec In Lab Mario Hallman MD URINE ORDERABLES Performing Organization Address [facility] Co de Phone Number [facility] [place] [address] * ECHO COMPLETE W CONTRAST (06/08/2021 11:09 AM EDT) Anatomical Region Laterality Modality Other 06/08/2021 9:35 AM EDT Narrative 06/08/2021 12:42 PM EDT ?[facility] ?[address] ? [place] [address] ?Voice: ?Fax: ? Echocardiogram Report Name: NEISHA, LOIDA ? Study Date: 06/08/2021 09:35 AMBP: 109/69 mmHg ? Patient Location: ICCU^432^A : 1970 ? Height: 163 cm ? Account: [id number] Age: 51 yrs ? Weight: 95 kg Gender: Female ?BSA: 2.0 m2 Ordering Physician: DONALD Referring Physician: AJ HARTMAN Performed By: Aaron Herr RDCS Reason For Study: NSTEMI (non-ST elevated myocardial infarction) Exam Location: [facility]. Interpretation Summary 1. Left ventricle [...] significant change from prior in 08/2019. Procedure Complete-73032. Image enhancement Definity was used for left [...] Procedure Note Kai Haider MD - 06/08/2021 [place] [address] [place] [address] Voice: Fax: Echocardiogram Report Name: LOIDA ROQUE Study Date: 209:35 AMBP: 109/69 mmHg Patient Location:[place] [address]^A : 1970 Height: 163 cm Account: [id number] Age: 51 yrs Weight: 95 kg Gender: Female BSA: 2.0 m2 Ordering Physician: DONALD Referring Physician: AJ HARTMAN Performed By: Aaron Herr RDCS Reason For Study: NSTEMI (non-ST elevated myocardial infarction) Exam Location: [facility]. Interpretation Summary 1. Left ventricle [...] significant change from prior in 08/2019. Procedure Complete-37867. Image enhancement Definity was used for left [...] Heparin (unfractionated) Level (06/08/2021 5:54 AM EDT) [facility] UF Heparin 1.20(Crit ical) IU/mL [facility] [place] [address] * (ABNORMAL) Differential, Automated (06/08/2021 4:41 AM EDT) [facility] Neutrophil % 71.8 % [facility] Neutrophil Absolute 8.09(H) 1.70 - 6.10 x10(3)/mc L [facility] Lymph % 18.0 % [facility] Lymphocytes Abs 2.0 0.9 - 3.2 x10(3)/mc L [facility] Monocyte % 5.7 % [facility] Monocyte Abs 0.6 0.3 - 0.9 x10(3)/[facility] LABORAT[facility] Eos % 3.5 % [facility] Eosinophils Abs 0.4 0.0 - [...] Immature Gran Absolute 0.05(H) 0.00 - 0.04 x10(3)/[facility] Blood 06/08/2021 4:41 AM EDT 06/08/2021 5:11 AM EDT Narrative Resulting Agency Comment Spec In Lab Deja SANDRA HEMATOLOGY ORDERABLE S [facility] [place] [address] * (ABNORMAL) Hemogram (06/08/2021 4:41 AM EDT) White Blood Cell 11.3(H) 4.0 - 9.5 x10(3)/[facility] Red Blood Cell 4.64 4.00 - 5.21 x10(6)/[facility] Hemoglobin 13.9 11.7 - 15.5 g/dL [facility] Hematocrit 43.0 35.7 - 45.8 % [facility] Mean Cell Volume 92.7 82.6 - 94.4 fL [facility] Mean Cell Hemoglobin 30.0 27.1 - 32.0 pg [facility] Mean Cell Hemoglobin Concentration 32.3 31.7 - 35.0 g/dL [facility] Platelet 312 145 - 357 x10(3)/mc L [facility] RDW Standard Deviation 47.4(H) 37.0 - 46.0 fL [facility] RDW coefficient of variation 14.3(H) 11.5 - 14.1 % [facility] Mean Platelet Volume 10.8 7.6 - 12.9 fL [facility] NRBC% auto 0.0 % [facility] NRBC Absolute 0.000 0.000 - 0.000 x10(3)/mc L [facility] Blood 06/08/2021 4:41 AM EDT 06/08/2021 5:11 AM EDT Narrative Resulting Agency Comment Spec In Lab Deja SANDRA HEMATOLOGY ORDERABLE S Performing Organization Address City/State/[facility] Co de Phone Number [facility] [place] [phone] * (ABNORMAL) Heparin (unfractionated) Level (06/08/2021 4:41 AM EDT) UF Heparin 1.06(Crit ical) IU/mL [facility] [...] [facility] [place] [address] * (ABNORMAL) BMP w/fasting Glucose (06/08/2021 4:41 [...] Urea Nitrogen 21(H) 8 - 18 mg/dL [facility] [...] [facility] Carbon Dioxide 22 22 - 31 mmol/L [facility] Anion Gap 13 5 - 15 mmol/L [facility] [facility] Calcium 8.7 8.5 - 10.5 mg/dL [facility] Est Glomerular Filtration Rate 77 >=60 mL/min/1. 73 m?? [facility] [...] [facility] [place] [address] * Troponin (06/08/2021 4:41 AM EDT) Troponin-T [...] ischemia ?? New or presumed new significant CO-rrmytkd-Y wave (ST-T) changes or new left bundle [...] additional sample may be indicated. Reference: Third Ideal Definition of Myocardial Infarction. Journal of the [place] [employer] 2012;60:1581-98 Blood 06/08/2021 4:41 AM EDT 06/08/2021 5:12 AM EDT Narrative Resulting Agency Comment Spec In Lab Mario Hallman MD CHEMISTRY ORDERABLES Performing Organization Address City/[facility] Co de Phone Number [facility] [place] [address] * Heparin (unfractionated) Level (06/07/2021 9:55 PM EDT) UF Heparin 0.08 IU/mL [facility] [...] [facility]/ZIP Co de Phone Number [facility] [place] [address] * (ABNORMAL) pro-Brain Natriuretic Peptide (06/07/2021 5:26 PM EDT) NT-proBNP 2,701(H) <=124 pg/mL [facility] Blood Venous Draw / Unknown 06/07/2021 5:26 PM EDT 06/07/2021 5:44 PM EDT Narrative Resulting Agency Comment Spec In Lab Deja SANDRA CHEMISTRY ORDERABLES [facility] [place] [address] * (ABNORMAL) Differential, Automated (06/07/2021 5:26 PM EDT) Neutrophil % 74.6 % [facility] Neutrophil Absolute 8.97(H) 1.70 - 6.10 x10(3)/[facility] Lymph % 15.9 % [facility] Lymphocytes Abs 1.9 0.9 - 3.2 x10(3)/[facility] Monocyte % 6.0 % [facility] Monocyte Abs 0.7 0.3 - 0.9 x10(3)/[facility] Eos % 2.6 % [facility] Eosinophils [...] Absolute 0.05(H) 0.00 - 0.04 x10(3)/ L [facility] Blood 06/07/2021 5:26 PM EDT 06/07/2021 5:36 PM EDT Narrative Resulting Agency Comment Spec In Lab Deja SANDRA HEMATOLOGY ORDERABLE S [facility] [place] [address] * (ABNORMAL) Hemogram (06/07/2021 5:26 PM EDT) White Blood Cell 12.0(H) 4.0 - 9.5 x10(3)/mc L [facility] Red Blood Cell 4.72 4.00 - 5.21 x10(6)/mc L [facility] Hemoglobin 14.5 11.7 - 15.5 g/dL [facility] Hematocrit 44.0 35.7 - 45.8 % [facility] Mean Cell Volume 93.2 82.6 - 94.4 fL [facility] Mean Cell Hemoglobin 30.7 27.1 - 32.0 pg [facility] Mean Cell Hemoglobin Concentration 33.0 31.7 - 35.0 g/dL [facility] Platelet 346 145 - 357 x10(3)/mc L [facility] RDW Standard Deviation 47.2(H) 37.0 - 46.0 fL [facility] RDW coefficient of variation 14.4(H) 11.5 - 14.1 % [facility] Mean Platelet Volume 10.6 7.6 - 12.9 fL [facility] NRBC% auto 0.0 % [facility] NRBC Absolute 0.000 0.000 - 0.000 x10(3)/mc L [facility] Blood 06/07/2021 5:26 PM EDT 06/07/2021 5:36 PM EDT Narrative Resulting Agency Comment Spec In Lab Deja SANDRA HEMATOLOGY ORDERABLE S [facility] [place] [address] * BMP w/fasting Glucose (06/07/2021 5:26 PM EDT) [facility] Glucose Fasting 90 65 - 99 [...] Urea Nitrogen 18 8 - 18 mg/dL [facility] [...] [facility] Carbon Dioxide 24 22 - 31 mmol/L [facility] Anion Gap 12 5 - 15 mmol/L [facility] Calcium 9.1 8.5 - 10.5 mg/dL [facility] Est Glomerular Filtration Rate 60 >=60 mL/min/1. 73 m?? [facility] [...] [facility] [place] [address] * T3 Total (06/07/2021 5:26 PM EDT) Pathologist [facility] T3 Total 134 80 - 200 ng/dL [facility] Blood 06/07/2021 5:26 PM EDT 06/07/2021 5:36 PM EDT Narrative Resulting Agency Comment Spec In Lab Mario Hallman MD CHEMISTRY ORDERABLES Performing Organization Address City/[facility]/ZIP Co de Phone Number [facility] [place] [address] * T4 Total (06/07/2021 5:26 PM EDT) [facility] T4 Total 6.8 5.3 - 11.6 mcg/dL [facility] Comment: Reference Interval (mcg/dL): Females: ??First Trimester: 6.3-13.5 ??Second Trimester: 7.1-14.3 ??Third Trimester: 6.9-14.1 Blood 06/07/2021 5:26 PM EDT 06/07/2021 5:36 PM EDT Narrative Resulting Agency Comment Spec In Lab Mario Hallman MD CHEMISTRY ORDERABLES Performing Organization Address City/[facility]/ZIP Co de Phone Number [facility] [place] [address] * (ABNORMAL) TSH (06/07/2021 5:26 PM EDT) Thyroid Stimulating Hormone 5.83(H) 0.27 - 4.20 mcIU/mL [facility] Comment: Reference Interval (mcIU/mL): Females: ??First Trimester: 0.23-3.88 ??Second Trimester: 0.22-3.90 ??Third Trimester: 0.44-4.66 Blood 06/07/2021 5:26 PM EDT 06/07/2021 5:36 PM EDT Narrative Resulting Agency Comment Spec In Lab Mario Hallman MD CHEMISTRY ORDERABLES Performing Organization Address City/[facility]/ZIP Co de Phone Number [facility] [place] [address] * Lipase (06/07/2021 5:26 PM EDT) Lipase 18 0 - 60 unit/L [facility] Blood 06/07/2021 5:26 PM EDT 06/07/2021 5:36 PM EDT Narrative Resulting Agency Comment Spec In Lab Mario Hallman MD CHEMISTRY ORDERABLES Performing Organization Address City/[facility]/ZIP Co de Phone Number [facility] [place] [address] * Amylase (06/07/2021 5:26 PM EDT) Amylase 39 28 - 100 unit/L [facility] Blood 06/07/2021 5:26 PM EDT 06/07/2021 5:36 PM EDT Narrative Resulting Agency Comment Spec In Lab Mario Hallman MD CHEMISTRY ORDERABLES Performing Organization Address City/[facility]/ZIP Co de Phone Number [facility] [place] [address] * Lipid Panel (Reflex Direct LDL) (06/07/2021 5:26 PM EDT) Pathologist [facility] Cholesterol, Total 164 mg/dL [facility] Comment: Lower Risk: <200 mg/dL Average Risk: 200-239 mg/dL Higher Risk: >su=449 mg/dL Triglyceride 144 mg/dL [facility] Comment: Average Risk/Lower Risk: <150 mg/dL Borderline High Risk: 150-199 mg/dL High Risk: 200-499 mg/dL Very High Risk: >hw=736 mg/dL HDL Cholesterol 44 mg/dL [facility] Comment: Males: ?? Higher Risk: <40 mg/dL Females: ?? Higher Risk: <50 mg/dL LDL Cholesterol 91 mg/dL [facility] Comment: Lowest Risk: <100 mg/dL Lower Risk: 100-129 mg/dL Borderline High Risk: 130-159 mg/dL High Risk: 160-189 mg/dL Very High Risk: >st=013 mg/dL Cholesterol/HDL Ratio 3.7 ratio [facility] Lipid Interpretation See Note [facility] Comment: Lipid management should be guided by a patient? s ASCVD risk, goals and preferences. ACC/AHA Guidelines recommend high intensity statin if clinical ASCVD or LDL greater than or equal to 190 mg/dL. http://Flywheel.com/LRR-OBN-Novywgwjt Adults aged 40-75 with LDL 70-189 mg/dL should have their 10 year ASCVD risk estimated with the ACC/AHA ASCVD risk electrical estimator http://tools.acc.org/MXLJT-Efej-Fzvxgocww/ Statin should be discussed if risk greater [...] [facility] [place] [address] * CK (06/07/2021 5:26 PM EDT) Pathologist [facility] Creatine Kinase 33 0 - 160 unit/L [facility] Blood 06/07/2021 5:26 PM EDT 06/07/2021 5:36 PM EDT Narrative Resulting Agency Comment Spec In Lab Mario Hallman MD CHEMISTRY ORDERABLES [facility] [place] [address] * Hemoglobin A1c (06/07/2021 5:04 PM EDT) [facility] Hemoglobin A1c 5.6 4.3 - 5.6 % [place] [...] 1, S67-74 Estimated Average Glucose 114 mg/dL [facility] [...] into estimated average glucose values. ??Diabetes Care 2008:31(8):0552-2758. Blood 06/07/2021 5:04 PM EDT 06/07/2021 5:36 PM EDT Narrative Resulting Agency Comment Spec In Lab Mario Hallman MD CHEMISTRY ORDERABLES [facility] [place] [address] * Troponin (06/07/2021 5:04 PM EDT) Troponin-T [...] ischemia ?? New or presumed new significant FE-knjpdap-S wave (ST-T) changes or new left bundle [...] additional sample may be indicated. Reference: Third Ideal Definition of Myocardial Infarction. Journal of the [place] [employer] 2012;60:1581-98 Blood 06/07/2021 5:04 PM EDT 06/07/2021 5:36 PM EDT Narrative Resulting Agency Comment Spec In Lab Mario Hallman MD CHEMISTRY ORDERABLES Performing Organization Address [facility] Co de Phone Number [facility] [place] [address] * EKG 12 Lead (06/07/2021 4:33 PM EDT) Ventricular rate 54 BPM MUSE SYSTEM Atrial Rate 54 BPM MUSE SYSTEM P-R Interval 166 ms MUSE SYSTEM QRS Duration 86 ms MUSE SYSTEM Q-T Interval 514 ms MUSE SYSTEM QTC Calculated (Bezet) 487 ms MUSE SYSTEM Calculated P [place] 30 degrees MUSE SYSTEM Calculated R [place] 22 degrees MUSE SYSTEM Calculated T [place] 18 degrees MUSE SYSTEM INTERPRETATION Sinus bradycardia Left atrial enlargement Cannot rule out Lateral infarct , age undetermined Abnormal ECG When compared with ECG of 31-AUG-2019 07:05, No significant change was found Confirmed by MD Dalia, Willy Huerta ([id number]) on 06/09/2021 4:36:27 PM MUSE SYSTEM 06/07/2021 4:33 PM EDT 06/09/2021 4:36 PM EDT Mario Hallman MD ECG ORDERABLES Performing Organization Address [facility] Co de Phone Number MUSE SYSTEM * COVID-19 PCR (06/07/2021 4:30 PM EDT) Pathologist [facility] SARS-CoV-2 RNA (Rapid) Not Detected Not Detected [facility] [...] using the Simplexa COVID-19 Direct Assay by [employer] as authorized by the FDA issued Emergency [...] Department of Pathology and Laboratory Medicine at [facility], certified under the Clinical Laboratory [...] fact sheets at the following FDA website: https://www.fda.gov/medical-devices/pyrawpentme-hfylued-3848-vsgmq-00-rpmsyiaoo- use-a wmphgarzhabdt-eouesgi-byryych/cugex-tlgmefnpwdg-zejz SARS-CoV-2 Source BINITROTOLUENE OPERATOR Swab MA [facility] Nasopharyngeal Swab 06/08/19 4:30 PM EDT 06/07/2021 4:45 PM EDT Comment:Symptoms->Surveillan ce Narrative Resulting Agency Comment Spec In Lab Mario Hallman MD MICROBIOLOGY - GENER AL ORDERABLES [facility] [place] [address] documented in this encounter Visit Diagnoses Diagnosis [...] Inhalation, 2 TIMES DAILY, First dose on [facility] 06/07/21 at 2100, Until Discontinued, Routine Given 06/07/2021 8:25 PM EDT 2 .Inhalat ion clopidogreL (Plavix) tablet 75 mg 75 mg, Oral, DAILY, First dose on [place] 06/08/21 at 0900, Until Discontinued, Routine Given 06/08/2021 9:08 AM EDT [address] (Cymbalta) capsule 60 mg 60 mg, Oral, DAILY, First dose on [facility] 06/07/21 at 1845, Until Discontinued, Routine Given 06/08/2021 9:02 PM EDT 60 mg Given 06/07/2021 9:00 PM EDT 60 mg empagliflozin (Jardiance) Tab 10 mg 10 mg, Oral, DAILY, First dose on [place] 06/08/21 at 1545, Until Discontinued, Routine Given [...] 40 mg, Intravenous, ONCE, 1 dose, On [place] 06/08/21 at 1545 Given 06/08/2021 5:01 PM EDT 40 mg furosemide (Lasix) tablet 20 mg 20 mg, Oral, DAILY, First dose on [facility] 06/07/21 at 1845, Until Discontinued, Routine Given 06/09/2021 9:39 AM EDT 20 mg Given 06/08/2021 9:08 AM EDT 20 mg gabapentin (Neurontin) capsule 300 mg 300 mg, Oral, 2 TIMES DAILY, First dose on [facility] 06/07/21 at 2100, Until Discontinued, Routine [...] Routine documented in this encounter Care Teams Controller Operations And Hr Manager Relationship Specialty Start Date End Date Polo Pearce PA [address] [place] [address] PCP - General Internal Medicine 06/09/21 documented as of this encounter
--- OUTSIDE RECORDS SUMMARY | 2024-04-10 17:12 | XMS_ITS | Encounter Summary ---
[place] [address] Care Team Providers Care Casket Assembler Name Role Phone Tim Rogers DNP Primary Care Provider [phone] Encounter Details Date Type Department Care Team (Late st Contact Info) Description 05/06/2020 [place] [phone] Virginia Marc Social History Tobacco Use Types [...] 3:00 PM EDT Office [place] [phone] [place] [address] documented as of this encounter Visit Diagnoses Not on filedocumented in this encounter Care Teams Casket Assembler Relationship Specialty Start Date End Date Tim Rogers DNP [address] [place] [address] PCP - General Family Medicine 08/28/19 06/08/21 documented as of this encounter
--- OUTSIDE RECORDS SUMMARY | 2024-04-10 17:12 | XMS_ITS | Encounter Summary ---
[place] [address] Care Team Providers Care Road Passenger Firer Name Role Phone Tim Rogers DNP Primary Care Provider [phone] Encounter Details Date Type Department Care Team (Late st Contact Info) Description 08/02/2020 Telephone [place] [phone] Olive Frazier Social History Tobacco Use Types [...] 3:00 PM EDT Office Visit [place] [phone] [place] [address] documented as of this encounter Visit Diagnoses Not on filedocumented in this encounter Care Teams Road Passenger Firer Relationship Specialty Start Date End Date Tim Rogers DNP [address] [place] [address] PCP - General Family Medicine 08/28/19 06/08/21 documented as of this encounter
--- OUTSIDE RECORDS SUMMARY | 2024-04-10 17:12 | XMS_ITS | Encounter Summary ---
[place] [address] Care Team Providers Care Four Roll Calender Operator Name Role Phone Tim Rogers DNP Primary Care Provider [phone] Encounter Details Date Type Department Care Team (Late st Contact Info) Description 05/30/2021 Telephone [place] [phone] Beryl Grider Social History Tobacco Use Types [...] Beryl Grider - 05/30/2021 11:10 AM EDTSummary: [facility] Per Dr. Miller via [place], needs images sent to our PACS system for mutual pt. Called PCP's (Polo Pearce) office at [facility] & Nayeli Martin in Radiology to Assist in sending images of chest x- ray from May 03 & CT scan of abdomen ( maybe chest) from May 27 to our PACS system with Pulm # [phone] opt 1 documented in this encounter Plan of Treatment Upcoming Encounters Date Type Department Care Team (Late st Contact Info) Description 07/19/2024 3:00 PM EDT Office Visit [place] [address] [place] [address] documented as of this encounter Visit Diagnoses Not on filedocumented in this encounter Care Teams Four Roll Calender Operator Relationship Specialty Start Date End Date Tim Rogers DNP [address] [facility] [address] [place] [address] PCP - General Family Medicine 08/28/19 06/08/21 documented as of this encounter
--- OUTSIDE RECORDS SUMMARY | 2024-04-10 17:12 | XMS_ITS | Encounter Summary ---
[place] [address] Care Team Providers Care Ethylene Compressor Operator Name Role Phone Tim Rogers DNP Primary Care Provider [phone] Reason for Visit * Reason Onset Date Comments Nasal Congestion 09/02/2020 Cough 09/02/2020 Shortness of Breath 09/02/2020 Anorexia 09/02/2020 Lack of appetite Encounter Details Date Type Department Care Team (Late st Contact Info) Description 09/02/2020 [place] [address] Renetta Graham RN Nasal Congestion; Cough; Shortness [...] radha annita. Return Contact Number: [facility] - [phone], ask for Mihaela Preferred Pharmacy: Maulik Alvarez on file. documented in this encounter Plan of Treatment Upcoming Encounters Date Type Department Care Team (Late st Contact Info) Description 07/19/2024 3:00 PM EDT Office [place] [address] Mary Reyes, [place] [address] documented as of this encounter Visit Diagnoses Not on filedocumented in this encounter Care Teams Ethylene Compressor Operator Relationship Specialty Start Date End Date Tim Rogers DNP [address] [place] [address] PCP - General Family Medicine 08/28/19 06/08/21 documented as of this encounter
--- OUTSIDE RECORDS SUMMARY | 2024-04-10 17:12 | XMS_ITS | Encounter Summary ---
Author Organization [facility] [place] [address] Care Team Providers Care Shoe Polisher Name Role Phone Tim Rogers DNP Primary Care Provider [phone] Encounter Details Date Type Department Care Team (Late st Contact Info) Description 06/06/2021 [place] [address] Paulo Ramachandran Jr., MD [facility] [place] [address] Social History Tobacco Use Types Packs/Day Years [...] provider/staff member. Referring Provider: Stuart Iyer MD [address] [place] [address] [place] [address] Indira Roque 51 y.o. w / a [...] has been accepted for transfer to [facility] tomorrow. I asked the provider to contact us again if there is change in clinical status. documented in this encounter Plan of Treatment Upcoming Encounters Date Type Department Care Team (Late st Contact Info) Description 07/19/2024 3:00 PM EDT Office Visit [place] [address] [place] [address] documented as of this encounter Visit Diagnoses Not on filedocumented in this encounter Care Teams Shoe Polisher Relationship Specialty Start Date End Date Tim Rogers DNP [address] [place] [address] PCP - General Family Medicine 08/28/19 06/08/21 documented as of this encounter
--- OUTSIDE RECORDS SUMMARY | 2024-04-10 17:13 | XMS_ITS | Encounter Summary ---
Author Organization [facility] Address [address] [place] [address] Care Team Providers Care Shrimping Boat Captain Name Role Phone Unknown, Provider Primary Care Provider Unava ilable Encounter Details Date Type Department Care Team (Late st Contact Info) Description 05/18/2020 Lab Requisition [facility] Pathology & Laboratory Medicine - [facility] [address], [place] [address] Outr Resulting Lab, Provider Social History Tobacco [...] 4th Generation Negative Negative 05/20/2020 11:35 EDT [facility] Comment: If acute HIV-1 infection is suspected in a high risk ??patient, submit plasma specimen for HIV-1 RNA quantitation test. Fourth Generation assay performed on the Siemens [employer]aur. Blood VENOUS BLOOD / Unknown 05/17/2020 14:00 EST 05/19/2020 16:27 EDT us Provider Outr Resulting Lab IMMUNOLOGY AND SEROL OGY ORDERABLES Final Result [facility] [address] [place] [address] documented in this encounter Visit Diagnoses Not on filedocumented in this encounter Care Teams Shrimping Boat Captain Relationship Specialty Start Date End Date Unknown, Provider, PCP - General 01/28/10 documented as of this encounter
--- OUTSIDE RECORDS SUMMARY | 2024-04-10 17:13 | XMS_ITS | Encounter Summary ---
Author Organization [facility] Address [address] [place] [address] Care Team Providers Care Rubber Process Hand Name Role Phone Unknown, Provider Primary Care Provider Unava ilable Encounter Details Date Type Department Care Team (Late st Contact Info) Description 07/29/2022 Lab Requisition [facility] Pathology & Laboratory Medicine - [facility] [address] [place] [address] Outr Resulting Lab, Provider Social History Tobacco [...] - 147 % 08/05/2022 11:55 EDT [facility] Comment: a.Acquired Protein [...] ORD ERABLES Final Result Performing Organization Address [facility]/ZIP Co de Phone Number [facility] [address] [place] [address] * PROTEIN C ACTIVITY (07/29/2022 9:25 EDT) Protein C Clot 132 71 - 199 % 08/05/2022 11:55 EDT [facility] Comment: a. Acquired [...] ORD ERABLES Final Result Performing Organization Address City/[facility]/ZIP Co de Phone Number [facility] [address] [place] [address] documented in this encounter Visit Diagnoses Not on filedocumented in this encounter Care Teams Rubber Process Hand Relationship Specialty Start Date End Date Unknown, Provider, PCP - General 01/28/10 documented as of this encounter
--- OUTSIDE RECORDS SUMMARY | 2024-04-10 17:13 | XMS_ITS | Encounter Summary ---
[place] [address] Care Team Providers Care Gateman Name Role Phone Tmi Rogers DNP Primary Care Provider [phone] Encounter Details Date Type Department Care Team (Late st Contact Info) Description 08/28/2019 12:05 AM EDT Ancillary Procedure Radiology Library at [facility] [place] [phone] Veronica Bello, [place] [address] [place] [address] Social History Tobacco Use Types Packs/Day Years [...] 3:00 PM EDT Office Visit Gastroenterology at [facility] [place] [phone] Mary Reyes APRN [facility] [place] [address] documented as of this encounter Procedures Procedure Name Priority Date/Time Associated Diagnosis Comments FILM LIBRARY STORAGE ONLY CT CHEST Routine 08/28/2019 12:05 AM EDT documented in this encounter Results * Film Library- Storage Only CT Chest (08/28/2019 12:05 AM EDT) Narrative [facility] - 08/29/2019 1:46 PM EDT This exam is auto-finalizing. It's purpose is for storage only. Veronica Bello APRN IMG FILM LIBRARY ORD ERABLES Performing Organization Address City/State/[facility] Co de Phone Number [place], [place] documented in this encounter Visit Diagnoses Not on filedocumented in this encounter Care Teams Gateman Relationship Specialty Start Date End Date Tim Rogers DNP [address] [place] [address] PCP - General Family Medicine 08/28/19 06/08/21 documented as of this encounter
--- OUTSIDE RECORDS SUMMARY | 2024-04-10 17:13 | XMS_ITS | Clinical Summary ---
Author Organization [facility] Address [address] [place] [id number] Care Team Providers Care Animal Rescuer Name Role Phone Unknown, Provider Primary Care [...] C Antibody Negative Negative 05/20/2020 11:15 EDT [facility] Blood VENOUS BLOOD / Unknown 05/17/2020 14:00 EST 05/19/2020 16:37 EDT us Provider Outr Resulting Lab CHEMISTRY & BLOOD GA S ORDERABLES Final Result [facility] [address] [place] [address] from Last 3 Months or Most Recently Relevant to Health Maintenance Care Teams Animal Rescuer Relationship Specialty Start Date End Date Unknown, Provider, PCP - General 01/28/10
--- OUTSIDE RECORDS SUMMARY | 2024-04-10 17:13 | XMS_ITS | Encounter Summary ---
[place] [address] Care Team Providers Care Info Analyst Name Role Phone Tim Rogers DNP Primary Care Provider [phone] Encounter Details Date Type Department Care Team (Late st Contact Info) Description 08/28/2019 External Results [place] [address] Social History Tobacco Use Types Packs/Day Years [...] 3:00 PM EDT Office Visit [place] [phone] [place] [address] documented as of this encounter Procedures Procedure Name Priority Date/Time Associated Diagnosis Comments ECG SCAN Routine 08/28/2019 documented in this encounter Results * Scan Doc: ECG (08/28/2019) Historical Provider MD FLEMING MGR SCAN EX T ORDR/RSLT documented in this encounter Visit Diagnoses Not on filedocumented in this encounter Care Teams Info Analyst Relationship Specialty Start Date End Date Tim Rogers DNP [facility] JAYDON SOUZA [facility] [address] [place] [address] PCP - General Family Medicine 08/28/19 06/08/21 documented as of this encounter
--- OUTSIDE RECORDS SUMMARY | 2024-04-10 17:13 | XMS_ITS | Encounter Summary ---
Author Organization [facility] [place] [address] Care Team Providers Care Professor Of Exercise Science Name Role Phone Tim Rogers DNP Primary Care Provider [phone] Encounter Details Date Type Department Care Team (Late st Contact Info) Description 08/28/2019 [place] [address] Kia Angelo MD [facility] [place] [address] Social History Tobacco Use Types Packs/Day Years [...] Dr. Pooja Iyer, Dr. Weathers Patient Location: [facility] ED Reason for call: [...] can keep and manage patient in the [facility] ED overnight pending bed [...] 3:00 PM EDT Office [place] [address] [place] [address] documented as of this encounter Visit Diagnoses Not on filedocumented in this encounter Care Teams Professor Of Exercise Science Relationship Specialty Start Date End Date Tim Rogers DNP [facility] JAYDON MOTT [address] [place] [address] PCP - General Family Medicine 08/28/19 06/08/21 documented as of this encounter
--- OUTSIDE RECORDS SUMMARY | 2024-04-10 17:13 | XMS_ITS | Referral Summary ---
Author Organization [facility] Address [address] [place] [address] Care Team Providers Care Radio Antenna Installer Name Role Phone Unknown, Provider Primary Care [...] C Antibody Negative Negative 05/20/2020 11:15 EDT [facility] Blood VENOUS BLOOD / Unknown 05/17/2020 14:00 EST 05/19/2020 16:37 EDT us Provider Outr Resulting Lab CHEMISTRY & BLOOD GA S ORDERABLES Final Result [facility] [address] [place] [address] from Last 3 Months or Most Recently Relevant to Health Maintenance Care Teams Radio Antenna Installer Relationship Specialty Start Date End Date Unknown, Provider, PCP - General 01/28/10
--- OUTSIDE RECORDS SUMMARY | 2024-04-10 17:13 | XMS_ITS | Encounter Summary ---
[place] [address] Care Team Providers Care Access Database Developer Name Role Phone Dustin Nino MD Primary Care Provider [phone] Encounter Details Date Type Department Care Team (Late st Contact Info) Description 06/20/2010 [place] [address] Lashonda York MD [facility] [address] [place] [address] Social History Tobacco Use Types Packs/Day Years [...] 3:00 PM EDT Office [place] [phone] Mary Reyes APRN [facility] [place] [address] documented as of this encounter Visit Diagnoses Not on filedocumented in this encounter Care Teams Access Database Developer Relationship Specialty Start Date End Date Dustin Nino MD [facility] [address] [place] [address] PCP - General 06/11/10 08/27/19 documented as of this encounter
--- OUTSIDE RECORDS SUMMARY | 2024-04-10 17:13 | XMS_ITS | Encounter Summary ---
[place] [address] Care Team Providers Care Diesel Stationary Engineer Name Role Phone Tim Rogers DNP Primary Care Provider [phone] Reason for Visit * Auth/Cert Specialty Diagnoses / Procedures Referred By Jayant harris Referred To Contact Diagnoses NSTEMI (non-ST elevated myocardial infarction) NSTEMI Procedures EMERGNECY IPI Referral ID Status Reason Start Date Expiration Date Visits Re quested Visits Authorized [id number] 1 1 Encounter Details Date Type Department Care Team (Late st Contact Info) Description 08/30/2019 1:00 PM EDT - 08/30/2019 2:00 PM EDT Surgery [place] [address] Jessee Malone MD [facility] [place] [address] CARDIAC CATHETERIZATION Social History Tobacco Use Types [...] this encounter Discharge Summaries * Natalia Urbina, STEM TEACHER - 08/30/2019 5:18 PM EDT Images from the original note were not included. Discharge Summary Patient Name: Loida Roque Patient Age: 49 y.o. Language: Brazilian Race: White Ethnicity: Not nor Admit date: [...] pain overnight ~3 weeksago concerning for missed KS. ??In the ED, her EKG was abnormal [...] follow-up visit please call one of the agricultural engineer on Wednesday-Wednesday between the hours of 8A- 5PM. Cardiology Clinic number @ [phone] If off hours contact the cardiac fellow on- call. Hospital Hull Builder can help you. Hospital phone number [phone] Return to work: In 1 week Drivin hours post catheterization Follow up Appointments: Doctor Where Phone # Date Time Bouchra Frias APRN [address] / [facility] [id number] 09/13/19 8:30 Discharge References/Attachments None Discussed with MD Natalia Lira APRN Pager [phone] 08/31/2019 documented in this encounter Discharge Instructions * Discharge Instructions* Natalia Urbina APRN - 08/31/2019 3:54 PM EDT Call your doctor if: Chest pain, dyspnea, pain or swelling in legs occurs. If you have non-emergent questions, prior to your follow-up visit please call one of the agricultural engineer on Wednesday-Wednesday between the hours of 8A- 5PM. Cardiology Clinic number @ [phone] If off hours contact the cardiac fellow on- call. Hospital Hull Builder can help you. Hospital phone number [phone] Return to work: In 1 week Drivin hours post catheterization Follow up Appointments: Doctor Where Phone # Date Time Bouchra Frias APRN [address] / [facility] [id number] 09/13/19 8:30 * Attachments The following attachments cannot be sent through Care Everywhere. * Cardiac Catheterization: Left (Brazilian) documented in this encounter Medications at Time of Discharge Medication Sig Dispensed Refills Start Date End Date fluticasone propionate (FLONASE) 50 mcg/actuation [place], Suspension 1 spray by Each Nare route [...] Spirometry Patient Loida Roque 49 y.o. 1970 [id number] Spirometry Spirometry performed successfully. Waiting for read [...] Pt wheeled out of the unit with DESIGN DRAFTER CHIEF. * Leonardo Jolly - 08/31/2019 12:25 PM EDT Nutrition Services Note - Low Nutrition Acuity Loida Roque is a 49 y.o. female Reason for intervention: education [facility] + NA Nutrition Plan: Patient states that she follows a low sodium restriction a home. Educational Material Guidelines for a Heart Healthy Lifestyle provided. Continue current diet. Educational Material provided. Monitor weight. Encourage good oral intake. Support and encouragement provided. Nutrition will continue to monitor and follow up with patient as needed. Active Orders Diet Daily Healthy Menu Choices/Cardiac diet ([facility]-Diet) Frequency: Effective Now Number of Occurrences: Until [...] in the interim. Leonardo Marina Jolly Pager: [phone] * Manish Benitez MD - 08/31/2019 9:33 AM EDT Images from the original note were not included. Inpatient Cardiology Progress Note Patient Name: Loida Roque Service: HAND SIZER / PA Responsible Attending: Manish Benitez MD [...] See remainder of report for additional findings. [facility] 08/29 Preliminary findings: Right dominant Normal [...] overnight ~3 weeks ago concerning for missed KS. ??In the ED, her EKG was abnormal with diffuse STTW abnormalities but unchanged from prior EKG in 200 7.?Troponin??I??positive at 0.25 (ULN 0.06). ??Vitals stable and patient asymptomatic at rest. ??DDimer positive at 1037 thus??CT-PE protocol??completed. ??No PE or acute aortic pathology. ??She is transferred for further work up of NSTEMI. ??EF 62% and no wall motions seen on echo. [facility] with normal cors and LVEDP 15. [...] Echo with EF 62% and no [facility] with normal cors A1C 5.4% Bedside PFTs today ?? FULL CODE Discussed with MD Natalia Lira, ROM Pager [phone] 08/31/2019 Cardiology Attending Note I interviewed and examined the patient during comprehensive bedside rounds. I concur with the summary of interval events, active hospital-focused problem list and plan of care as described in the note below. I personally reviewed the medications, laboratory results, treatment decisions and updated the patient. Manish Benitez MD, FACP, FACC Section of Cardiovascular Medicine [facility] Grill Chefmotor man [facility] at [facility] [place] This patient meets or has met medical [...] Progress Note Patient Name: Loida Roque Service: HAND SIZER / PA Responsible Attending: Manish Benitez MD [...] overnight ~3 weeks ago concerning for missed KS. 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 fluticasone propionate (FLONASE) 50 mcg/actuation [place], Suspension 1 spray by Each Nare route [...] overnight ~3 weeks ago concerning for missed KS. In the ED, her EKG was abnormal with diffuse STTW abnormalities but unchanged from prior EKG in 2006. Troponin I positive at 0.25 (ULN 0.06). Vitals stable and patient asymptomatic at rest. DDimer positive [id number] thus CT-PE protocol completed. No PE or acute aortic pathology. She is transferred for furtherwork up of NSTEMI. Plan Echo and coronary angiography. TREATMENT PLAN: #NSTEMI Admit to cardiology Trend troponin - 1st negative at [facility] ProBNP 1242; Admit weight 207 lbs; Lasix [...] FACC Section of Cardiovascular Medicine [facility] Gr[employer] [place] man [facility] Medicine at [facility] [place] This patient meets or has met medical [...] Primary care provider on file: Tim Rogers, STEM TEACHER [phone] Advance Directive on file and Code Status: Full Code Patient???s Functional Status: Independent w/o device Living Situation: lives with Boby Roque (Spouse) [phone] (M) at [address] [place] [address] Supports: Boby, Mother son and daughter Assessment: Patient with no apparent RNCM/SW needs at this time. No housing, transportation, insurance, resources concerns identified at this time. Supports in place to achieve a safe post-hospital transition. No identified barriers to accessing necessary care and/or follow-up after discharge. Plan: Patient to d/c to home when medically ready. barrel line operator/Rail Technician will continue to follow patient???s progress and remain available if situation changes for coordination of care, psychosocial support and/or discharge planning. Angela Loving RN * Brief Op Note - Jessee Malone MD - 08/30/2019 2:31 PM EDT Preliminary Cardiac Catheterization Procedure Note: Patient Name: Loida Roque : [id number] MR#: [id number] Case Date: 08/30/2019 Hull Builder: Surgeon(s) and Role: * Jessee Malone MD - Primary * Luis Tatum PA - Fellow Preoperative diagnosis: ?CAD Postoperative diagnosis: * CAD * Procedure(s) performed: [facility] Coronary angio Access: Right radial A [...] for further details. JOCY Montaño 08/30/2019 Pager [phone] * Plan of Care - Efrain Verma [...] 3:00 PM EDT [place] [id number] [place] [address] documented as of this encounter Procedures Procedure [...] (FVC >70%) Zoe Morocho MD Natalia Urbina STEM TEACHER PFT ORDERABLES * EKG 12 Lead (08/31/2019 7:05 AM EDT) Ventricular rate 51 BPM MUSE SYSTEM Atrial Rate 51 BPM MUSE SYSTEM P-R Interval 186 ms MUSE SYSTEM QRS Duration 82 ms MUSE SYSTEM Q-T Interval 546 ms MUSE SYSTEM QTC Calculated (Bezet) 503 ms MUSE SYSTEM Calculated P [place] 18 degrees MUSE SYSTEM Calculated R [place] 52 degrees MUSE SYSTEM Calculated T [place] 13 degrees MUSE SYSTEM INTERPRETATION Sinus bradycardia [...] 4:12 AM EDT) Neutrophil % 45.2 % [facility] Neutrophil Absolute 2.73 1.70 - 6.10 x10(3)/[facility] LABORATORY Lymph % 34.8 % [facility] Lymphocytes Abs 2.1 0.9 - 3.2 x10(3)/[facility] LABORATORY Monocyte % 10.1 % [facility] Monocyte Abs 0.6 0.3 - 0.9 x10(3)/[facility]ORATORY Eos % 8.9 % [facility] Eosinophils Abs 0.5(H) 0.0 - 0.4 x10(3)/[facility] LABORATORY Basophil % 0.8 % [facility] Baso Absolute 0.0 0.0 - 0.1 x10(3)/[facility] [...] Immature Gran Absolute 0.01 0.00 - 0.04 x10(3)/[facility] LABORATORY Blood specimen (specimen) 08/31/2019 4:12 AM EDT 08/31/2019 4:29 AM EDT Narrative Resulting Agency Comment Spec In Lab [place] [facility]ATOLOG[facility] ORDERABLE S [facility] [place] [address] * (ABNORMAL) Hemogram (08/31/2019 4:12 AM EDT) White Blood Cell 6.0 4.0 - 9.5 x10(3)/[facility] LABORATORY Red Blood Cell 5.08 4.00 - 5.21 x10(6)/[facility]ORY Hemoglobin 15.7(H) 11.7 - 15.5 gm/dL [facility] Hematocrit 47.0(H) 35.7 - 45.8 % [facility] Mean Cell Volume 92.5 82.6 - 94.[address] [facility] Mean Cell Hemoglobin 30.9 27.1 - 32.[address] [facility] Mean Cell Hemoglobin Concentration 33.4 31.7 - 35.0 gm/dL [facility] Platelet 255 145 - 357 x10(3)/mc L [facility] RDW Standard Deviation 45.3 37.0 - 46.[address] [facility] RDW coefficient of variation 13.2 11.5 - 14.1 % [facility] Mean Platelet Volume 11.4 7.6 - 12.9 [facility] LABORATORY NRBC% auto 0.0 % [facility] NRBC Absolute 0.000 0.000 - 0.000 x10(3)/mc L [facility] Blood specimen (specimen) 08/31/2019 4:12 AM EDT 08/31/2019 4:29 AM EDT Narrative Resulting Agency Comment Spec In Lab [place] [facility]AT[facility] ORDERABLE S Performing Organization Address City/[facility]/ZIP Co de Phone Number [facility] [place] [address] * Magnesium (08/31/2019 4:12 AM EDT) Magnesium 0.92 0.69 - 1.07 mmol/L [facility] Blood specimen (specimen) 08/31/2019 4:12 AM EDT 08/31/2019 4:29 AM EDT Narrative Resulting Agency Comment Spec In Lab Manish Benitez MD CHEMISTRY ORDERABL ES Performing Organization Address City/[facility]/ZIP Co de Phone Number [facility] [place] [address] * (ABNORMAL) BMP w/fasting Glucose (08/31/2019 4:12 AM EDT) Glucose Fasting 91 65 - 99 mg/dL [facility] [...] 18 mg/dL [facility] Creatinine 0.91 0.70 - 1.20 mg/dL [facility] [...] mmol/L [facility] Carbon Dioxide 18(L) 22 - 31 mmol/L [facility] Anion Gap 13 5 - 15 mmol/L [facility] Calcium 9.4 8.5 - 10.5 mg/dL [facility] Est Glomerular Filtration Rate 74 >=60 mL/min/1. 73 m?? [facility] Comment: The eGFR was calculated using the CKD-EPI equation. As with all creatinine based estimates of kidney function, eGFR values calculated with the CKD-EPI equation are not accurate in patients with acute kidney failure, extremes of body mass or the acutely ill. http://[employer]/[facility]nkf eGFR 85 >=60 mL/min/1. 73 m?? [facility] Comment: The eGFR was calculated using the CKD-EPI equation. As with all creatinine based estimates of kidney function, eGFR values calculated with the CKD-EPI equation are not accurate in patients with acute kidney failure, extremes of body mass or the acutely ill. http://[employer]/[facility]nkf Blood specimen (specimen) 08/31/2019 4:12 AM EDT 08/31/2019 4:29 AM EDT Narrative Resulting Agency Comment Spec In Lab Manish Benitez MD CHEMISTRY ORDERABL ES Performing Organization Address City/State/[facility] Co de Phone Number [facility] [place] [address] * CARDIAC CATHETERIZATION (08/30/2019 2:40 PM EDT) Anatomical Region Laterality Modality Other Narrative 08/30/2019 2:59 PM EDT ?[facility] ? Cardiac Catheterization/Intervention Report ? Patient Name: Neisha, Loida ? Procedure Date: 08/30/2019 ? A #: [id number] ? Primary Physician: Kira, Jessee T ? Case #: [id number] ? File Name: [id number] ? Catheterization Order Number: [id number] ? [facility] ? Final Report [place], [place] ? Patient Name: ? Loida Neisha ? ID#: ?[id number] ? : ?1970 ? Procedure Date: ? [...] procedure was Urgent. The indication for ?the bed laborer visit is ACS less than or [...] Procedure Note Jessee Malone MD - 08/30/2019 [facility] Cardiac Catheterization/Intervention Report Patient Name: Loida Roque Procedure Date: 08/30/2019 A #: [id number] Primary Physician: Jessee Malone Case #: [id number] File Name: [id number] Catheterization Order Number: [id number] [facility] FinalReport [place], [place] Patient Name: Loida Roque ID#:[id number] :1970 Procedure Date: August 30, 2019 Case [...] designated as ASA Class III. The [facility] clinical frailtyscale is 2: Well. Diagnostic Tests: Prior Coronary Angiography: LV ejection fraction within 6 months is 65%. Medications Prior to Procedure: Aspirin. Indications for Diagnostic Cath: The priority of the diagnostic procedure was Urgent. The indicationfor the bed laborer visit is ACS less than or [...] the coronary angiography and leftheart catheterization. Jessee Maolne M.D. Electronically Signed by: Jessee Malone M.D. Report Finalized: 08/30/2019 14:56 Jessee Malone MD CARDIAC CATH ORDERAB LES * ECHO COMPLETE W CONTRAST (08/30/2019 12:23 PM EDT) EF 62 [facility] [facility] Anatomical Region Laterality Modality Other 08/30/2019 Narrative 08/30/2019 2:22 PM EDT Procedure: ?Transthoracic Echocardiogram Patient: ?NEISHA LOIDA ?(Age): 1970(49y) Med Rec#: ? [id number] ?Sex: ?F ? Site Loc: ? [facility] ?Ht / Wt: ??163(cm)/94(kg) Pt. Loc: ?Adult Floor ? BSA: ?1.99 Study Date: ?? 08/30/2019 ?Pt. Type: Inpatient Tape: ? Referring: POOJA IYER J Reading: Jose Chambers ([id number]) Capacity Planning Manager: Jaspreet Oneil RDCS Interpreting Fellow: Poncho Yates ([id number]) Diagnosis: *Non-ST elevation (NSTEMI) myocardial infarction (I21.4) [...] Vmax ?0.35 ? m/sec ? MV deceleration [id number] ?msec ? MV A-wave Vmax ?0.25 ? [...] ? Mid-Inferior ?Normal ? Mid-Inferoseptal ?Normal ? [place]-Septal ? Normal ? [place]-Anterior ? Normal ? [place]-Lateral ?Normal ? [place]-Inferior ? Normal ? [place]-Tip ?Normal ? This report has been electronically signed by: Jose Chambers MD ? 08/30/2019 14:21:57 Images reviewed and interpretation verified [facility] Cardiac Ultrasound Laboratory Procedure Note Jose Chambers MD - 08/30/2019 Procedure: Transthoracic Echocardiogram Patient: NEISHA VÁSQUEZ(Age): 1970(49y) Med Rec#: [id number] Sex: F Site Loc: [facility] Ht / Wt: 163(cm)/94(kg) Pt. Loc: Adult Floor BSA: 1.99 Study Date: 08/30/2019 Pt. Type: Inpatient Tape: Referring: POOJA IYER J Reading: Jose Chambers ([id number]) Capacity Planning Manager: Jaspreet Oneil [facility] Interpreting Fellow: Poncho Yates ([id number]) Diagnosis: *Non-ST elevation (NSTEMI) myocardial infarction (I21.4) [...] MV E-wave Vmax 0.35 m/sec MV deceleration [id number] msec MV A-wave Vmax 0.25 m/sec MV [...] Normal Mid-Posterolateral Normal Mid-Inferior Normal Mid-Inferoseptal Normal [place]-Septal Normal [place]-Anterior Normal [place]-Lateral Normal [place]-Inferior Normal [place]-Tip Normal This report has been electronically signed by: Jose Chambers MD 08/30/2019 14:21:57 Images reviewed and interpretation verified [facility] Cardiac Ultrasound Laboratory Manish Benitez MD ECHO ORDERABLES * EKG 12 Lead (08/30/2019 10:28 AM EDT) Ventricular rate 52 BPM MUSE SYSTEM Atrial Rate 52 BPM MUSE SYSTEM P-R Interval 162 ms MUSE SYSTEM QRS Duration 84 ms MUSE SYSTEM Q-T Interval 536 ms MUSE SYSTEM QTC Calculated (Bezet) 498 ms MUSE SYSTEM Calculated P [place] -9 degrees MUSE SYSTEM Calculated R [place] 43 degrees MUSE SYSTEM Calculated T [place] -27 degrees MUSE SYSTEM INTERPRETATION Sinus bradycardia [...] (unfractionated) Level (08/30/2019 2:53 AM EDT) Pathologist [facility] UF Heparin 0.44 IU/mL [facility] Comment: Guidelines for therapeutic unfractionated [...] MD HEMATOLOGY ORDERAB LES Performing Organization Address City/State/[facility] Co de Phone Number [facility] [place] [address] * (ABNORMAL) Differential, Automated (08/30/2019 2:53 AM EDT) Neutrophil % 52.4 % [facility] Neutrophil Absolute 3.85 1.70 - 6.10 x10(3)/mc L [facility] Lymph % 29.3 % [facility] Lymphocytes Abs 2.2 0.9 - 3.2 x10(3)/mc L [facility] Monocyte % 9.1 % [facility] Monocyte Abs 0.7 0.3 - 0.9 x10(3)/mc L [facility] Eos % 8.6 % [facility] Eosinophils Abs 0.6(H) 0.0 - 0.4 x10(3)/mc L [facility] Basophil % 0.5 % [facility] Baso Absolute 0.0 0.0 - 0.1 x10(3)/mc L [facility] Immature Gran % 0.10 % [facility] Comment: Immature granulocytes(IG's)percentage and absolute count will include metamyelocytes, myelocytes, and promyelocytes. Blood smears from CBCs yielding IG's will be scanned manually for concordance. If this scan disagrees with the automated IG or if promyelocytes are noted, a manual differential will be performed. Immature Gran Absolute 0.01 0.00 - 0.04 x10(3)/ L [facility] Blood specimen (specimen) 08/30/2019 2:53 AM EDT 08/30/2019 3:01 AM EDT Narrative Resulting Agency Comment Spec In Lab [place] [facility] ORDERABLE S [facility] [place] [address] * (ABNORMAL) Hemogram (08/30/2019 2:53 AM EDT) White Blood Cell 7.4 4.0 - 9.5 x10(3)/[facility] LABORATORY Red Blood Cell 4.84 4.00 - 5.21 x10(6)/[facility] LABORATORY Hemoglobin 14.8 11.7 - 15.5 gm/dL [facility] Hematocrit 44.8 35.7 - 45.8 % [facility] Mean Cell Volume 92.6 82.6 - 94.[address] [facility] Mean Cell Hemoglobin 30.6 27.1 - 32.[address] [facility] Mean Cell Hemoglobin Concentration 33.0 31.7 - 35.0 gm/dL [facility] Platelet 272 145 - 357 x10(3)/[facility] LABORATORY RDW Standard Deviation 46.2(H) 37.0 - 46.0 [facility] LABORATORY RDW coefficient of variation 13.5 11.5 - 14.1 % [facility] Mean Platelet Volume 10.9 7.6 - 12.[address] [facility] NRBC% auto 0.0 % [facility] NRBC Absolute 0.000 0.000 - 0.000 x10(3)/ L [facility] Blood specimen (specimen) 08/30/2019 2:53 AM EDT 08/30/2019 3:01 AM EDT Narrative Resulting Agency Comment Spec In Lab [place] [facility]ATOLOG[facility] ORDERABLE S Performing Organization Address [facility] Co de Phone Number [facility] [place] [address] * Magnesium (08/30/2019 2:53 AM EDT) Magnesium 0.90 0.69 - 1.07 mmol/L [facility] Blood specimen (specimen) 08/30/2019 2:53 AM EDT 08/30/2019 3:01 AM EDT Narrative Resulting Agency Comment Spec In Lab Mansih Benitez MD CHEMISTRY ORDERABL ES Performing Organization Address [facility] Co de Phone Number [facility] [place] [address] * (ABNORMAL) BMP w/fasting Glucose (08/30/2019 2:53 AM EDT) Glucose Fasting 102(H) 65 - 99 mg/dL [facility] [...] 18 mg/dL [facility] Creatinine 1.09 0.70 - 1.20 mg/dL [facility] [...] mmol/L [facility] Carbon Dioxide 19(L) 22 - 31 mmol/L [facility] Anion Gap 17(H) 5 - 15 mmol/L [facility] Calcium 9.0 8.5 - 10.5 mg/dL [facility] Est Glomerular Filtration Rate 59(L) >=60 mL/min/1. 73 m?? [facility] Comment: The eGFR was calculated using the CKD-EPI equation. As with all creatinine based estimates of kidney function, eGFR values calculated with the CKD-EPI equation are not accurate in patients with acute kidney failure, extremes of body mass or the acutely ill. http://[employer]/[facility]nkf eGFR 69 >=60 mL/min/1. 73 m?? [facility] Comment: The eGFR was calculated using the CKD-EPI equation. As with all creatinine based estimates of kidney function, eGFR values calculated with the CKD-EPI equation are not accurate in patients with acute kidney failure, extremes of body mass or the acutely ill. http://[employer]/[facility]nkf Blood specimen (specimen) 08/30/2019 2:53 AM EDT 08/30/2019 3:01 AM EDT Narrative Resulting Agency Comment Spec In Lab Manish Benitez MD CHEMISTRY ORDERABL ES [facility] [place] [address] * Triglyceride (08/30/2019 2:53 AM EDT) Triglyceride 203 mg/dL [facility] Comment: Average Risk/Lower Risk: <150 mg/dL Borderline High Risk: 150-199 mg/dL High Risk: 200-499 mg/dL Very High Risk: >nx=013 mg/dL Blood specimen (specimen) 08/30/2019 2:53 AM EDT 08/30/2019 3:01 AM EDT Narrative Resulting Agency Comment Spec In Lab Manish Benitez MD CHEMISTRY ORDERABL ES [facility] [place] [address] * HDL/Cholesterol Profile (08/30/2019 2:53 AM EDT) Cholesterol, Total 220 mg/dL [facility] Comment: Lower Risk: <200 mg/dL Average Risk: 200-239 mg/dL Higher Risk: >th=354 mg/dL HDL Cholesterol 34 mg/dL [facility] Comment: Males: ?? Higher Risk: <40 mg/dL Females: ?? HIgher Risk: <50 mg/dL Cholesterol/HDL Ratio 6.[address] [facility] Chol/HDL Interpretation See Note [facility] Comment: Lipid management should be guided by a patient? s ASCVD risk, goals and preferences. ACC/AHA Guidelines recommend high intensity statin if clinical ASCVD or LDL greater than or equal to 190 mg/dL. http://[employer]com/LJC-RVV-Fujxhviim Measure LDL if Total Cholesterol minus HDL Cholesterol is greater than 220 mg/dL. Adults aged 40-75 with LDL 70-189 mg/dL should have their 10 year ASCVD risk estimated with the ACC/AHA ASCVD risk estimator printing plate making http://tools.acc.org/RTTTR-Ikok-Phucnzwor/ Statin should be discussed if risk greater [...] ORDERABL ES Performing Organization Address [facility] de Phone Number ST [facility] [place] [address] * LDL Cholesterol, Direct (08/30/2019 2:53 AM EDT) LDL Cholesterol, Direct 165 mg/dL [facility] Comment: Lowest Risk: <100 mg/dL Lower Risk: 100-129 mg/dL Borderline High Risk: 130-159 mg/dL High Risk: 160-189 mg/dL Very High Risk: >li=501 mg/dL Blood specimen (specimen) 08/30/2019 2:53 AM EDT 08/30/2019 3:01 AM EDT Narrative Resulting Agency Comment Spec In Lab Manish Benitez MD CHEMISTRY ORDERABL ES Performing Organization Address [facility] de Phone Number [facility] [place] [address] * Hemoglobin A1c (08/30/2019 2:53 AM EDT) Hemoglobin A1c 5.4 4.3 - 5.6 % [facility] Mellitus, Diabetes Care 2013; 36: Suppl. 1, T45-60 Estimated Average Glucose 108 mg/dL [facility] Comment: eAG [...] into estimated average glucose values. ??Diabetes Care 2008:31(8):3779-2726. Blood specimen (specimen) 08/30/2019 2:53 AM EDT 08/30/2019 3:01 AM EDT Narrative Resulting Agency Comment Spec In Lab Manish Benitez MD CHEMISTRY ORDERABL ES Performing Organization Address [facility] de Phone Number [facility] [place] [address] * CK (08/30/2019 2:53 AM EDT) Creatine Kinase 82 0 - 160 unit/L [facility] Blood specimen (specimen) 08/30/2019 2:53 AM EDT 08/30/2019 3:01 AM EDT Narrative Resulting Agency Comment Spec In Lab Manish Benitez MD CHEMISTRY ORDERABL ES Performing Organization Address [facility] de Phone Number [facility] [place] [address] * Troponin (08/30/2019 2:53 AM EDT) Troponin-T [...] meets the diagnosis for a myocardial infarction ([place]). Detection of a rise and/or fall of cTnT, with at least one value greater than the 99th percentile (> or = 0.01) and with at least one of the following ?? Symptoms of ischemia ?? New or presumed new significant EQ-qofammd-M wave (ST-T) changes or new left bundle [...] additional sample may be indicated. Reference: Third Yoder Definition of Myocardial Infarction. Journal of the [employer] 2012;60:1581-98 Blood specimen (specimen) 08/30/2019 2:53 AM EDT 08/30/2019 3:01 AM EDT Narrative Resulting Agency Comment Spec In Lab Manish Benitez MD CHEMISTRY ORDERABL ES [facility] [place] [address] * (ABNORMAL) Differential, Automated (08/29/2019 8:30 PM EDT) Neutrophil % 56.5 % [facility] Neutrophil Absolute 3.58 1.70 - 6.10 x10(3)/mc L [facility] Lymph % 25.9 % [facility] Lymphocytes Abs 1.6 0.9 - 3.2 x10(3)/mc L [facility] Monocyte % 8.8 % [facility] Monocyte Abs 0.6 0.3 - 0.9 x10(3)/mc L [facility] Eos % 7.7 % [facility] Eosinophils Abs 0.5(H) 0.0 - 0.4 x10(3)/ L [facility] Basophil % 0.8 % [facility] Baso Absolute 0.0 0.0 - 0.1 x10(3)/ L [facility] Immature Gran % 0.30 % [facility] Comment: Immature granulocytes(IG's)percentage and absolute count will include metamyelocytes, myelocytes, and promyelocytes. Blood smears from CBCs yielding IG's will be scanned manually for concordance. If this scan disagrees with the automated IG or if promyelocytes are noted, a manual differential will be performed. Immature Gran Absolute 0.02 0.00 - 0.04 x10(3)/[facility] Blood specimen (specimen) 08/29/2019 8:30 PM EDT 08/29/2019 9:11 PM EDT Narrative Resulting Agency Comment Spec In Lab [place] SANDRA HEMATOLOGY ORDERABLE S [facility] [place] [address] * (ABNORMAL) Hemogram (08/29/2019 8:30 PM EDT) White Blood Cell 6.3 4.0 - 9.5 x10(3)/[facility] Red Blood Cell 5.03 4.00 - 5.21 x10(6)/[facility] Hemoglobin 15.3 11.7 - 15.5 gm/dL [facility] Hematocrit 46.4(H) 35.7 - 45.8 % [facility] Mean Cell Volume 92.2 82.6 - 94.[address] [facility] Mean Cell Hemoglobin 30.4 27.1 - 32.[address] [facility] Mean Cell Hemoglobin Concentration 33.0 31.7 - 35.0 gm/dL [facility] Platelet 267 145 - 357 x10(3)/mc L [facility] RDW Standard Deviation 46.4(H) 37.0 - 46.0 [facility] RDW coefficient of variation 13.6 11.5 - 14.1 % [facility] Mean Platelet Volume 11.3 7.6 - 12.9 [facility] NRBC% auto 0.0 % [facility] NRBC Absolute 0.000 0.000 - 0.000 x10(3)/mc L [facility] Blood specimen (specimen) 08/29/2019 8:30 PM EDT 08/29/2019 9:11 PM EDT Narrative Resulting Agency Comment Spec In Lab [place] SANDRA HEMATOLOGY ORDERABLE S [facility] [place] [address] * Heparin (unfractionated) Level (08/29/2019 8:30 PM EDT) UF Heparin 0.46 IU/mL [facility] Comment: Guidelines for therapeutic unfractionated [...] ORDERAB LES Performing Organization Address [facility] Co de Phone Number [facility] [place] [address] * CK (08/29/2019 8:30 PM EDT) Creatine Kinase 94 0 - 160 unit/L [facility] Blood specimen (specimen) 08/29/2019 8:30 PM EDT 08/29/2019 9:11 PM EDT Narrative Resulting Agency Comment Spec In Lab Manish Benitez MD CHEMISTRY ORDERABL ES Performing Organization Address [facility] de Phone Number [facility] [place] [address] * Troponin (08/29/2019 8:30 PM EDT) Pathologist [facility] Troponin-T <0.01 0.00 - 0.00 ng/mL [facility] Comment: The 99th percentile for Troponin T is less than 0.01 ng/mL, any detectable cTnT concentration using this assay should be considered elevated. According to the third universal definition of myocardial infarction the following criteria with a clinical presentation consistent with acute myocardial ischemia meets the diagnosis for a myocardial infarction ([place]). Detection of a rise and/or fall of cTnT, with at least one value greater than the 99th percentile (> or = 0.01) and with at least one of the following ?? Symptoms of ischemia ?? New or presumed new significant YV-kkpwxpy-E wave (ST-T) changes or new left bundle [...] additional sample may be indicated. Reference: Third Yoder Definition of Myocardial Infarction. Journal of the [place] 2012;60:1581-98 Blood specimen (specimen) 08/29/2019 8:30 PM EDT 08/29/2019 9:11 PM EDT Narrative Resulting Agency Comment Spec In Lab Manish Benitez MD CHEMISTRY ORDERABL ES Performing Organization Address [facility]/ZIP Co de Phone Number [facility] [place] [address] * EKG 12 Lead (08/29/2019 4:19 PM EDT) Ventricular rate 67 BPM MUSE SYSTEM Atrial Rate 67 BPM MUSE SYSTEM P-R Interval 164 ms MUSE SYSTEM QRS Duration 80 ms MUSE SYSTEM Q-T Interval 478 ms MUSE SYSTEM QTC Calculated (Bezet) 505 ms MUSE SYSTEM Calculated P [place] 34 degrees MUSE SYSTEM Calculated R [place] 30 degrees MUSE SYSTEM Calculated T [place] -29 degrees MUSE SYSTEM INTERPRETATION Demand pacemaker; [...] ECG ORDERABLES Performing Organization Address [facility]/ZIP Co de Phone Number MUSE SYSTEM * (ABNORMAL) Differential, Automated (08/29/2019 3:10 PM EDT) Neutrophil % 58.3 % [facility] Neutrophil Absolute 3.79 1.70 - 6.10 x10(3)/mc L [facility] Lymph % 22.7 % [facility] Lymphocytes Abs 1.5 0.9 - 3.2 x10(3)/mc L [facility] Monocyte % 10.3 % [facility] Monocyte Abs 0.7 0.3 - 0.9 x10(3)/mc L [facility] Eos % 7.8 % [facility] Eosinophils Abs 0.5(H) 0.0 - 0.4 x10(3)/ L [facility] Basophil % 0.6 % [facility] Baso Absolute 0.0 0.0 - 0.1 x10(3)/[facility] [...] Immature Gran Absolute 0.02 0.00 - 0.04 x10(3)/[facility] Blood specimen (specimen) 08/29/2019 3:10 PM EDT 08/29/2019 3:50 PM EDT Narrative Resulting Agency Comment Spec In Lab [place] SANDRA HEMATOLOGY ORDERABLE S [facility] [place] [address] * (ABNORMAL) Hemogram (08/29/2019 3:10 PM EDT) White Blood Cell 6.5 4.0 - 9.5 x10(3)/[facility] Red Blood Cell 4.69 4.00 - 5.21 x10(6)/[facility] Hemoglobin 14.1 11.7 - 15.5 gm/dL [facility] Hematocrit 43.8 35.7 - 45.8 % [facility] Mean Cell Volume 93.4 82.6 - 94.[address] [facility] Mean Cell Hemoglobin 30.1 27.1 - 32.[address] [facility] Mean Cell Hemoglobin Concentration 32.2 31.7 - 35.0 gm/dL [facility] Platelet 235 145 - 357 x10(3)/[facility] RDW Standard Deviation 47.2(H) 37.0 - 46.[address] [facility] RDW coefficient of variation 13.7 11.5 - 14.1 % [facility] Mean Platelet Volume 11.5 7.6 - 12.9 [facility] NRBC% auto 0.0 % [facility] NRBC Absolute 0.000 0.000 - 0.000 x10(3)/mc L [facility] Blood specimen (specimen) 08/29/2019 3:10 PM EDT 08/29/2019 3:50 PM EDT Narrative Resulting Agency Comment Spec In Lab [place] SANDRA HEMATOLOGY ORDERABLE S Performing Organization Address [facility] Co de Phone Number [facility] [place] [address] * Hepatic Function Panel (08/29/2019 3:10 PM EDT) Protein, Total 7.1 6.1 - 8.0 gm/dL [facility] Albumin 4.0 3.2 - 5.2 gm/dL [facility] Aspartate Aminotransferase 25 0 - 30 unit/L [facility] Alanine Aminotransferase 19 0 - 30 unit/L [facility] Alkaline Phosphatase 49 35 - 105 unit/L [facility] Bilirubin, Total 0.7 0.2 - 1.3 mg/dL [facility] Bilirubin, Direct 0.1 0.0 - 0.3 mg/dL [facility] Blood specimen (specimen) 08/29/2019 3:10 PM EDT 08/29/2019 3:52 PM EDT Narrative Resulting Agency Comment Spec In Lab Manish Benitez MD CHEMISTRY ORDERABL ES Performing Organization Address City/[facility]/ZIP Co de Phone Number [facility] [place] [address] * TSH (08/29/2019 3:10 PM EDT) [facility] Thyroid Stimulating Hormone 1.87 0.27 - 4.20 mcIU/mL [facility] Blood specimen (specimen) 08/29/2019 3:10 PM EDT 08/29/2019 3:52 PM EDT Narrative Resulting Agency Comment Spec In Lab Manish Benitez MD CHEMISTRY ORDERABL ES Performing Organization Address [facility]/ZIP Co de Phone Number [facility] [place] [address] * (ABNORMAL) pro-Brain Natriuretic Peptide (08/29/2019 3:10 PM EDT) [facility] NT-proBNP 1,242(H) <=125 pg/mL [facility] Blood specimen (specimen) 08/29/2019 3:10 PM EDT 08/29/2019 3:52 PM EDT Narrative Resulting Agency Comment Spec In Lab Manish Benitez MD CHEMISTRY ORDERABL ES Performing Organization Address [facility] Co de Phone Number [facility] [place] [address] * CK (08/29/2019 3:10 PM EDT) [facility] Creatine Kinase 96 0 - 160 unit/L [facility] Blood specimen (specimen) 08/29/2019 3:10 PM EDT 08/29/2019 3:52 PM EDT Narrative Resulting Agency Comment Spec In Lab Manish Benitez MD CHEMISTRY ORDERABL ES Performing Organization Address [facility] Co de Phone Number [facility] [place] [address] * Troponin (08/29/2019 3:10 PM EDT) [facility] Troponin-T <0.01 0.00 - 0.00 ng/mL [facility] Comment: The 99th percentile for Troponin T is less than 0.01 ng/mL, any detectable cTnT concentration using this assay should be considered elevated. According to the third universal definition of myocardial infarction the following criteria with a clinical presentation consistent with acute myocardial ischemia meets the diagnosis for a myocardial infarction ([place]). Detection of a rise and/or fall of cTnT, with at least one value greater than the 99th percentile (> or = 0.01) and with at least one of the following ?? Symptoms of ischemia ?? New or presumed new significant DU-rcihzzk-Z wave (ST-T) changes or new left bundle [...] additional sample may be indicated. Reference: Third Yoder Definition of Myocardial Infarction. Journal of the [place] [employer] 2012;60:1581-98 Blood specimen (specimen) 08/29/2019 3:10 PM EDT 08/29/2019 3:52 PM EDT Narrative Resulting Agency Comment Spec In Lab Manish Benitez MD CHEMISTRY ORDERABL ES [facility] [place] [address] * (ABNORMAL) APTT (08/29/2019 3:10 PM EDT) Partial Thromboplastin Time 132(Criti edy) 25 - [address] [facility] Comment: Critical Result [...] ORDERAB LES Performing Organization Address [facility]/ZIP Co de Phone Number [facility] [place] [address] * (ABNORMAL) Prothrombin Time (08/29/2019 3:10 PM EDT) Prothrombin Time 13.3(H) 9.4 - 12.[address] [facility] International Normalization Ratio 1.2 [facility] Comment: An INR [...] ORDERAB LES Performing Organization Address [facility]/ZIP Co de Phone Number [facility] [place] [address] * (ABNORMAL) Basic Metabolic Panel (non-fasting) (08/29/2019 3:10 PM EDT) Glucose 83 65 - 199 mg/dL [facility] Comment:Diabetes: >=200 mg/d L plus symptoms Blood Urea Nitrogen 15 8 - 18 mg/dL [facility] Creatinine 0.84 0.70 - 1.20 mg/dL [facility] [...] mmol/L [facility] Carbon Dioxide 19(L) 22 - 31 mmol/L [facility] Anion Gap 14 5 - 15 mmol/L [facility] Calcium 9.2 8.5 - 10.5 mg/dL [facility] Est Glomerular Filtration Rate 81 >=60 mL/min/1. 73 m?? [facility] Comment: The eGFR was calculated using the CKD-EPI equation. As with all creatinine based estimates of kidney function, eGFR values calculated with the CKD-EPI equation are not accurate in patients with acute kidney failure, extremes of body mass or the acutely ill. http://[employer]/iLikenkf eGFR 94 >=60 mL/min/1. 73 m?? [facility] Comment: The eGFR was calculated using the CKD-EPI equation. As with all creatinine based estimates of kidney function, eGFR values calculated with the CKD-EPI equation are not accurate in patients with acute kidney failure, extremes of body mass or the acutely ill. http://[employer]/[facility]THnkf Blood specimen (specimen) 08/29/2019 3:10 PM EDT 08/29/2019 3:52 PM EDT Narrative Resulting Agency Comment Spec In Lab Manish Benitez MD CHEMISTRY ORDERABL ES [facility] [place] [address] documented in this encounter Visit Diagnoses Not [...] [facility] Unhold - Provider: Admin Adt)2030 [...] [facility] Unhold - Provider: Admin Adt)2030 (Given - Provider: Gauri Arroyo RN) topiramate (Topamax) tablet 50 mg 50 mg, Oral, DAILY, First dose on Wed08/30/19 at 0900, Until Discontinued, Routine 0843 (Given - Provider: Mark Nick RN)1357 ([facility] Hold - Provider: Admin Adt - Reason: Transfer to a Procedural area)153 ([facility] Unhold - Provider: Admin Adt) 0817 (Given [...] UA) documented in this encounter Care Teams Diesel Stationary Engineer Relationship Specialty Start Date End Date Tim Rogers DNP [address] [place] [address] PCP - General Family Medicine 08/28/19 06/08/21 documented as of this encounter
--- OUTSIDE RECORDS SUMMARY | 2024-04-10 17:13 | XMS_ITS | Encounter Summary ---
Author Organization [facility] Address [address] [place] [id number] Care Team Providers Care Supervisor Farm Equipment Maintenance Name Role Phone Unknown, Provider Primary Care Provider Unava ilable Encounter Details Date Type Department Care Team (Late st Contact Info) Description 08/28/2019 Lab Requisition [facility] Pathology & Laboratory Medicine - [facility] [address] [place], [place] [address] Outr Resulting Lab, Provider Social History Tobacco [...] MICROBIOLOGY - GENER AL ORDERABLES Final Result [facility] [address] [place] [address] * COVID-19 TESTING (08/28/2019 21:50 EDT) COVID-19 rt-PCR Result Negative Negative 08/29/2019 12:[address] [facility] Comment: This test [...] history, and epidemiological information. Performed on the Eye-Q Fusion instrument Performing Lab Blair [facility] Lab 08/29/2019 12:[address] [facility] Swab 08/28/2019 21:5 0 EDT 08/29/2019 8:30 EDT us Provider Outr Resulting Lab MICROBIOLOGY - GENER AL ORDERABLES Final Result [facility] [address] [place] [address] documented in this encounter Visit Diagnoses Not on filedocumented in this encounter Care Teams Supervisor Farm Equipment Maintenance Relationship Specialty Start Date End Date Unknown, Provider, PCP - General 01/28/10 documented as of this encounter
--- OUTSIDE RECORDS SUMMARY | 2024-04-10 17:13 | XMS_ITS | Encounter Summary ---
[place] [address] Care Team Providers Care Designer/Writer Name Role Phone Tim Rogers DNP Primary Care Provider [phone] Reason for Visit * Auth/Cert Specialty Diagnoses / Procedures Referred By Contac t Referred To Contact Diagnoses NSTEMI (non-ST elevated myocardial infarction) NSTEMI Procedures EMERGNECY IPI Referral ID Status Reason Start Date Expiration Date Visits Re quested Visits Authorized [id number] 1 1 Encounter Details Date Type Department Care Team (Latest Contact Info) Description 08/29/2019 2:38 PM EDT - 08/31/2019 6:24 PM EDT Hospital Encounter Inter[place] [id number] Manish Benitez MD [facility] [place] [address] Non-ST elevation myocardial infarction (NSTEMI); SOB (shortness [...] this encounter Discharge Summaries * Natalia Urbina, NEWS DIRECTOR - 08/30/2019 5:18 PM EDT Images from the original note were not included. Discharge Summary Patient Name: Loida Roque Patient Age: 49 y.o. Language: Namibian Race: White Ethnicity: Not nor Admit date: [...] pain overnight ~3 weeksago concerning for missed OK. ??In the ED, her EKG was abnormal [...] follow-up visit please call one of the restaurant team member on Wednesday-Wednesday between the hours of 8A- 5PM. Cardiology Clinic number @ [phone] If off hours contact the cardiac fellow on- call. Hospital Manager Pe can help you. Hospital phone number [phone] Return to work: In 1 week Drivin hours post catheterization Follow up Appointments: Doctor Where Phone # Date Time Bouchra Frias APRN [address] / [facility] [address] 09/13/19 8:30 Discharge References/Attachments None Discussed with MD Natalia Lira APRN Pager [phone] 08/31/2019 documented in this encounter Discharge Instructions * Discharge Instructions* Natalia Urbina APRN - 08/31/2019 3:54 PM EDT Call your doctor if: Chest pain, dyspnea, pain or swelling in legs occurs. If you have non-emergent questions, prior to your follow-up visit please call one of the restaurant team member on Wednesday-Wednesday between the hours of 8A- 5PM. Cardiology Clinic number @ [phone] If off hours contact the cardiac fellow on- call. Hospital Manager Pe can help you. [facility] phone number [phone] Return to work: In 1 week Drivin hours post catheterization Follow up Appointments: Doctor Where Phone # Date Time Bouchra Frias APRN [address] / [facility] [address] 09/13/19 8:30 * Attachments The following attachments cannot be sent through Care Everywhere. * Cardiac Catheterization: Left (Namibian) documented in this encounter Medications at Time of Discharge Medication Sig Dispensed Refills Start Date End Date fluticasone propionate (FLONASE) 50 mcg/actuation [place], Suspension 1 spray by Each Nare route [...] Spirometry Patient Loida Roque 49 y.o. 1970 [id number] Spirometry Spirometry performed successfully. Waiting for read [...] Pt wheeled out of the unit with HEEL GUMMER. * Leonardo Jolly - 08/31/2019 12:25 PM EDT Nutrition Services Note - Low Nutrition Acuity Loida Roque is a 49 y.o. female Reason for intervention: education [facility] + NA Nutrition Plan: Patient states that she follows a low sodium restriction a home. Educational Material Guidelines for a Heart Healthy Lifestyle provided. Continue current diet. Educational Material provided. Monitor weight. Encourage good oral intake. Support and encouragement provided. Nutrition will continue to monitor and follow up with patient as needed. Active Orders Diet Daily Healthy Menu Choices/Cardiac diet ([facility]-Diet) Frequency: Effective Now Number of Occurrences: Until [...] consulted in the interim. Beverleyameya Jolly Pager: [phone] * Manish Benitez MD - 08/31/2019 9:33 AM EDT Images from the original note were not included. Inpatient Cardiology Progress Note Patient Name: Loida Roque Service: LAUNCH MANAGER / PA Responsible Attending: Manish Benitez MD [...] See remainder of report for additional findings. [facility] 08/29 Preliminary findings: Right dominant Normal coronary [...] overnight ~3 weeks ago concerning for missed OK. ??In the ED, her EKG was abnormal with diffuse STTW abnormalities but unchanged from prior EKG in 200 7.?Troponin??I??positive at 0.25 (ULN 0.06). ??Vitals stable and patient asymptomatic at rest. ??DDimer positive at 1037 thus??CT-PE protocol??completed. ??No PE or acute aortic pathology. ??She is transferred for further work up of NSTEMI. ??EF 62% and no wall motions seen on echo. [facility] with normal cors and LVEDP 15. Will [...] Echo with EF 62% and no WMA [facility] with normal cors A1C 5.4% Bedside PFTs today ?? FULL CODE Discussed with Manish Benitez MD Natalia Urbina, NEWS DIRECTOR Pager [phone] 08/31/2019 Cardiology Attending Note I interviewed and examined the patient during comprehensive bedside rounds. I concur with the summary of interval events, active hospital-focused problem list and plan of care as described in the note below. I personally reviewed the medications, laboratory results, treatment decisions and updated the patient. Manish Benitez MD, FACP, FAC Section of Cardiovascular Medicine [facility] [employer] Assistantactivities manager [employer] [facility] This patient meets or has met [...] Progress Note Patient Name: Loida Roque Service: LAUNCH MANAGER / PA Responsible Attending: Manish Benitez MD [...] overnight ~3 weeks ago concerning for missed OK. In the ED, her EKG was abnormal [...] MD, FACP, FAC Section of Cardiovascular Medicine [facility] [employer] Assistantactivities manager [facility] This patient meets or has met [...] file Gets together: Not on file Attends temple service: Not on file Active member of [...] children Lives in [facility] REVIEW OF SYSTEMS: Review of [...] Dose ??? fluticasone propionate (FLONASE) 50 mcg/actuation [place], Suspension 1 spray by Each Nare route [...] overnight ~3 weeks ago concerning for missed OK. In the ED, her EKG was abnormal with diffuse STTW abnormalities but unchanged from prior EKG in 2006. Troponin I positive at 0.25 (ULN 0.06). Vitals stable and patient asymptomatic at rest. DDimer positive [id number] thus CT-PE protocol completed. No PE or acute aortic pathology. She is transferred for furtherwork up of NSTEMI. Plan Echo and coronary angiography. TREATMENT PLAN: #NSTEMI Admit to cardiology Trend troponin - 1st negative at [facility] ProBNP 1242; Admit weight 207 lbs; Lasix [...] MD, FACP, FACC Section of Cardiovascular Medicine [facility] [employer] Assistantactivities manager [employer] [facility] [employer] [facility] This patient meets or has met [...] Primary care provider on file: Tim Rogers, NEWS DIRECTOR [phone] Advance Directive on file and Code Status: Full Code Patient???s Functional Status: Independent w/o device Living Situation: lives with Boby Roque (Spouse) [phone] (M) at [address] [place] [address] Supports: Boby, Mother son and daughter Assessment: Patient with no apparent RNCM/SW needs at this time. No housing, transportation, insurance, resources concerns identified at this time. Supports in place to achieve a safe post-hospital transition. No identified barriers to accessing necessary care and/or follow-up after discharge. Plan: Patient to d/c to home when medically ready. pharmacist in charge/Supervisor [employer] will continue to follow patient???s progress and remain available if situation changes for coordination of care, psychosocial support and/or discharge planning. Angela Loving RN * Brief Op Note - Jessee Malone MD - 08/30/2019 2:31 PM EDT Preliminary Cardiac Catheterization Procedure Note: Patient Name: Loida Roque : [id number] MR#: [id number] Case Date: 08/30/2019 Manager Pe: Surgeon(s) and Role: * Jessee Malone MD - Primary * Luis Tatum PA - Fellow Preoperative diagnosis: ?CAD Postoperative diagnosis: * CAD * Procedure(s) performed: [facility] Coronary angio Access: Right radial A time-out [...] for further details. JOCY Montaño 08/30/2019 Pager [phone] * Plan of Care - Efrain Verma [...] 3:00 PM EDT Office [place] [address] [place] [address] documented as of this encounter Procedures Procedure [...] 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%) Zoe Mroocho MD Natalia Urbina NEWS DIRECTOR PFT ORDERABLES * EKG 12 Lead (08/31/2019 7:05 AM EDT) Ventricular rate 51 BPM MUSE SYSTEM Atrial Rate 51 BPM MUSE SYSTEM P-R Interval 186 ms MUSE SYSTEM QRS Duration 82 ms MUSE SYSTEM Q-T Interval 546 ms MUSE SYSTEM QTC Calculated (Bezet) 503 ms MUSE SYSTEM Calculated P Eucha 18 degrees MUSE SYSTEM Calculated R Eucha 52 degrees MUSE SYSTEM Calculated T Eucha 13 degrees MUSE SYSTEM INTERPRETATION Sinus bradycardia [...] 4:12 AM EDT) Neutrophil % 45.2 % [facility] Neutrophil Absolute 2.73 1.70 - 6.10 x10(3)/[facility] LAB[facility]AT[facility] Lymph % 34.8 % [facility] Lymphocytes Abs 2.1 0.9 - 3.2 x10(3)/[facility] LABORATORY Monocyte % 10.1 % [facility] Monocyte Abs 0.6 0.3 - 0.9 x10(3)/[facility] LABORATORY Eos % 8.9 % [facility] Eosinophils Abs 0.5(H) 0.0 - 0.4 x10(3)/[facility] LABORATORY Basophil % 0.8 % [facility] Baso Absolute 0.0 0.0 - 0.1 x10(3)/[facility] LABORATORY Immature Gran % 0.20 % [facility] Comment: Immature granulocytes(IG's)percentage and absolute count will include metamyelocytes, myelocytes, and promyelocytes. Blood smears from CBCs yielding IG's will be scanned manually for concordance. If this scan disagrees with the automated IG or if promyelocytes are noted, a manual differential will be performed. Immature Gran Absolute 0.01 0.00 - 0.04 x10(3)/[facility] LABORATORY Blood specimen (specimen) 08/31/2019 4:12 AM EDT 08/31/2019 4:29 AM EDT Narrative Resulting Agency Comment Spec In Lab [place] SANDRA HEMATOLOGY ORDERABLE S [facility] [place] [address] * (ABNORMAL) Hemogram (08/31/2019 4:12 AM EDT) [facility] White Blood Cell 6.0 4.0 - 9.5 x10(3)/[facility] LABORATORY Red Blood Cell 5.08 4.00 - 5.21 x10(6)/mc L [facility] Hemoglobin 15.7(H) 11.7 - 15.5 gm/dL [facility] Hematocrit 47.0(H) 35.7 - 45.8 % [facility] Mean Cell Volume 92.5 82.6 - 94.4 fL [facility] Mean Cell Hemoglobin 30.9 27.1 - 32.0 pg [facility] Mean Cell Hemoglobin Concentration 33.4 31.7 - 35.0 gm/dL [facility] Platelet 255 145 - 357 x10(3)/mc L [facility] RDW Standard Deviation 45.3 37.0 - 46.0 fL [facility] RDW coefficient of variation 13.2 11.5 - 14.1 % [facility] Mean Platelet Volume 11.4 7.6 - 12.9 fL [facility] NRBC% auto 0.0 % [facility] NRBC Absolute 0.000 0.000 - 0.000 x10(3)/mc L [facility] Blood specimen (specimen) 08/31/2019 4:12 AM EDT 08/31/2019 4:29 AM EDT Narrative Resulting Agency Comment Spec In Lab [facility]A HEMATOLOGY ORDERABLE S Performing Organization Address City/[facility]/ZIP Co de Phone Number [facility] [place] [address] * Magnesium (08/31/2019 4:12 AM EDT) Magnesium 0.92 0.69 - 1.07 mmol/L [facility] Blood specimen (specimen) 08/31/2019 4:12 AM EDT 08/31/2019 4:29 AM EDT Narrative Resulting Agency Comment Spec In Lab Manish Benitez MD CHEMISTRY ORDERABL ES Performing Organization Address City/[facility]/ZIP Co de Phone Number [facility] [place] [address] * (ABNORMAL) BMP w/fasting Glucose (08/31/2019 4:12 AM EDT) [facility] Signature Glucose Fasting 91 65 - 99 mg/dL [facility] [...] of Diabetes Mellitus, Position Statement from the [place] Diabetes [employer]. ??Diabetes Care, Volume 33, Supplement 1, Mar 2009 Blood Urea Nitrogen 21(H) 8 - 18 mg/dL [facility] Creatinine 0.91 0.70 - 1.20 mg/dL [facility] Sodium 136 135 - 145 mmol/L [facility] Potassium 4.2 3.5 - 5.0 mmol/L [facility] Comment: Please note: ??Patients with WBC >100,000 may have falsely elevated Potassium levels. ??For accurate Potassium quantification in these patients send serum separator tube (gold top) for subsequent determinations. ??Contact the Clinical Chemistry Laboratory if there are any questions. Chloride 105 98 - 107 mmol/L [facility] Carbon Dioxide 18(L) 22 - 31 mmol/L [facility] Anion Gap 13 5 - 15 mmol/L [facility] Calcium 9.4 8.5 - 10.5 mg/dL [facility] Est Glomerular Filtration Rate 74 >=60 mL/min/1. 73 m?? [facility] Comment: The eGFR was calculated using the CKD-EPI equation. As with all creatinine based estimates of kidney function, eGFR values calculated with the CKD-EPI equation are not accurate in patients with acute kidney failure, extremes of body mass or the acutely ill. [email or web address] eGFR 85 >=60 mL/min/1. 73 m?? [facility] Comment: The eGFR was calculated using the CKD-EPI equation. As with all creatinine based estimates of kidney function, eGFR values calculated with the CKD-EPI equation are not accurate in patients with acute kidney failure, extremes of body mass or the acutely ill. [email or web address] Blood specimen (specimen) 08/31/2019 4:12 AM EDT 08/31/2019 4:29 AM EDT Narrative Resulting Agency Comment Spec In Lab Manish Benitez MD CHEMISTRY ORDERABL ES Performing Organization Address City/State/[facility] Co de Phone Number [facility] [place] [address] * CARDIAC CATHETERIZATION (08/30/2019 2:40 PM EDT) Anatomical Region Laterality Modality Other Narrative 08/30/2019 2:59 PM EDT ?[facility] ? Cardiac Catheterization/Intervention Report ? Patient Name: Neisha, Loida ? Procedure Date: 08/30/2019 ? A #: [id number] ? Primary Physician: Kira, Jessee T ? Case #: [id number] ? File Name: [id number] ? Catheterization Order Number: [id number] ? [facility] ? Final Report [place], [place] ? Patient Name: ? Loida Neisha ? ID#: ?[id number] ? : ?1970 ? Procedure Date: ? [...] was Urgent. The indication for ?the laborer mine visit is ACS less than or equal [...] Jessee Malone MD - 08/30/2019 [facility] Cardiac Catheterization/Intervention Report Patient Name: Loida Roque Procedure Date: 08/30/2019 A #: [id number] Primary Physician: Jessee Malone Case #: [id number] File Name: [id number] Catheterization Order Number: [id number] [facility] FinalReport [place], [place] Patient Name: Loida Roque ID#:[id number] :1970 Procedure Date: August 30, 2019 Case [...] was designated as ASA Class III. The [facility] clinical frailtyscale is 2: Well. Diagnostic Tests: Prior Coronary Angiography: LV ejection fraction within 6 months is 65%. Medications Prior to Procedure: Aspirin. Indications for Diagnostic Cath: The priority of the diagnostic procedure was Urgent. The indicationfor the laborer mine visit is ACS less than or equal [...] ?NEISHA LOIDA ?(Age): 1970(49y) Med Rec#: ? [id number] ?Sex: ?F ? Site Loc: ? [facility] ?Ht / Wt: ??163(cm)/94(kg) Pt. Loc: ?Adult Floor ? BSA: ?1.99 Study Date: ?? 08/30/2019 ?Pt. Type: Inpatient Tape: ? Referring: POOJA IYER J Reading: Jose Chambers ([id number]) Silk Examiner: Jaspreet Oneil RDCS Interpreting Fellow: Poncho Yates ([id number]) Diagnosis: *Non-ST elevation (NSTEMI) myocardial infarction (I21.4) [...] Vmax ?0.35 ? m/sec ? MV deceleration [id number] ?msec ? MV A-wave Vmax ?0.25 ? [...] ? Mid-Inferior ?Normal ? Mid-Inferoseptal ?Normal ? [place]-Septal ? Normal ? [place]-Anterior ? Normal ? [place]-Lateral ?Normal ? [place]-Inferior ? Normal ? [place]-Tip ?Normal ? This report has been electronically signed by: Jose Chambers MD ? 08/30/2019 14:21:57 Images reviewed and interpretation verified [facility] Procedure Note Jose Chambers MD - 08/30/2019 Procedure: Transthoracic Echocardiogram Patient: NEISHA VÁSQUEZ(Age): 1970(49y) Med Rec#: [id number] Sex: F Site Loc: [facility] Ht / Wt: 163(cm)/94(kg) Pt. Loc: Adult Floor BSA: 1.99 Study Date: 08/30/2019 Pt. Type: Inpatient Tape: Referring: POOJA IYER J Reading: Jose Chambers ([id number]) Silk Examiner: Jaspreet Oneil [facility] Interpreting Fellow: Poncho Yates ([id number]) Diagnosis: *Non-ST elevation (NSTEMI) myocardial infarction (I21.4) [...] MV E-wave Vmax 0.35 m/sec MV deceleration [id number] msec MV A-wave Vmax 0.25 m/sec MV [...] Normal Mid-Posterolateral Normal Mid-Inferior Normal Mid-Inferoseptal Normal [place]-Septal Normal [place]-Anterior Normal [place]-Lateral Normal [place]-Inferior Normal [place]-Tip Normal This report has been electronically signed by: Jose Chambers MD 08/30/2019 14:21:57 Images reviewed and interpretation verified [facility] Manish Benitez MD ECHO ORDERABLES * EKG 12 Lead (08/30/2019 10:28 AM EDT) Ventricular rate 52 BPM MUSE SYSTEM Atrial Rate 52 BPM MUSE SYSTEM P-R Interval 162 ms MUSE SYSTEM QRS Duration 84 ms MUSE SYSTEM Q-T Interval 536 ms MUSE SYSTEM QTC Calculated (Bezet) 498 ms MUSE SYSTEM Calculated P Eucha -9 degrees MUSE SYSTEM Calculated R Eucha 43 degrees MUSE SYSTEM Calculated T Eucha -27 degrees MUSE SYSTEM INTERPRETATION Sinus bradycardia Possible Lateral infarct , age undetermined ST & T wave abnormality, consider inferior ischemia Abnormal ECG When compared with ECG of 29-AUG-2019 16:19, (unconfirmed) Electronic demand pacing is no longer Present ??(may have been artifact) Premature ventricular complexes are no longer Present T wave inversion no longer evident in Anterior leads Confirmed by MD NAILA, KUASHIK ([id number]) on 08/30/2019 4:45:49 PM MUSE SYSTEM 08/30/2019 10:2 8 AM EDT 08/30/2019 4:45 PM EDT Manish Benitez MD ECG ORDERABLES MUSE SYSTEM * Heparin (unfractionated) Level (08/30/2019 2:53 AM EDT) UF Heparin 0.44 IU/mL [facility] Comment: Guidelines for therapeutic [...] HEMATOLOGY ORDERAB LES Performing Organization Address City/State/[facility] Co de Phone Number [facility] [place] [address] * (ABNORMAL) Differential, Automated (08/30/2019 2:53 AM EDT) Neutrophil % 52.4 % [facility] Neutrophil Absolute 3.85 1.70 - 6.10 x10(3)/mc L [facility] Lymph % 29.3 % [facility] Lymphocytes Abs 2.2 0.9 - 3.2 x10(3)/mc L [facility] Monocyte % 9.1 % [facility] Monocyte Abs 0.7 0.3 - 0.9 x10(3)/mc L [facility] Eos % 8.6 % [facility] Eosinophils Abs 0.6(H) 0.0 - 0.4 x10(3)/mc L [facility] Basophil % 0.5 % [facility] Baso Absolute 0.0 0.0 - 0.1 x10(3)/mc L [facility] Immature Gran % 0.10 % [facility] Comment: Immature granulocytes(IG's)percentage and absolute count will include metamyelocytes, myelocytes, and promyelocytes. Blood smears from CBCs yielding IG's will be scanned manually for concordance. If this scan disagrees with the automated IG or if promyelocytes are noted, a manual differential will be performed. Immature Gran Absolute 0.01 0.00 - 0.04 x10(3)/ L [facility] Blood specimen (specimen) 08/30/2019 2:53 AM EDT 08/30/2019 3:01 AM EDT Narrative Resulting Agency Comment Spec In Lab [place]DRA HEMATOLOGY ORDERABLE S [facility] [place] [address] * (ABNORMAL) Hemogram (08/30/2019 2:53 AM EDT) White Blood Cell 7.4 4.0 - 9.5 x10(3)/[facility] LABORATORY Red Blood Cell 4.84 4.00 - 5.21 x10(6)/[facility] LABORATORY Hemoglobin 14.8 11.7 - 15.5 gm/dL [facility] Hematocrit 44.8 35.7 - 45.8 % [facility] Mean Cell Volume 92.6 82.6 - 94.4 [facility]ORATORY Mean Cell Hemoglobin 30.6 27.1 - 32.0 pg [facility] Mean Cell Hemoglobin Concentration 33.0 31.7 - 35.0 gm/dL [facility] Platelet 272 145 - 357 x10(3)/[facility] LABORATORY RDW Standard Deviation 46.2(H) 37.0 - 46.0 [facility] RDW coefficient of variation 13.5 11.5 - 14.1 % [facility] Mean Platelet Volume 10.9 7.6 - 12.9 [facility] NRBC% auto 0.0 % [facility] NRBC Absolute 0.000 0.000 - 0.000 x10(3)/ L [facility] Blood specimen (specimen) 08/30/2019 2:53 AM EDT 08/30/2019 3:01 AM EDT Narrative Resulting Agency Comment Spec In Lab [place] SANDRA HEMATOLOGY ORDERABLE S Performing Organization Address [facility] Co de Phone Number [facility] [place] [address] * Magnesium (08/30/2019 2:53 AM EDT) Magnesium 0.90 0.69 - 1.07 mmol/L [facility] Blood specimen (specimen) 08/30/2019 2:53 AM EDT 08/30/2019 3:01 AM EDT Narrative Resulting Agency Comment Spec In Lab Manish Benitez MD CHEMISTRY ORDERABL ES Performing Organization Address [facility] de Phone Number [facility] [place] [address] * (ABNORMAL) BMP w/fasting Glucose (08/30/2019 2:53 AM EDT) Glucose Fasting 102(H) 65 - 99 mg/dL [facility] [...] of Diabetes Mellitus, Position Statement from the [place] [employer]. ??Diabetes Care, Volume 33, Supplement 1, Mar 2009 Blood Urea Nitrogen 18 8 - 18 mg/dL [facility] Creatinine 1.09 0.70 - 1.20 mg/dL [facility] [...] - 107 mmol/L [facility] Carbon Dioxide 19(L) 22 - 31 mmol/L [facility] Anion Gap 17(H) 5 - 15 mmol/L [facility] Calcium 9.0 8.5 - 10.5 mg/dL [facility] Est Glomerular Filtration Rate 59(L) >=60 mL/min/1. 73 m?? [facility] Comment: The eGFR was calculated using the CKD-EPI equation. As with all creatinine based estimates of kidney function, eGFR values calculated with the CKD-EPI equation are not accurate in patients with acute kidney failure, extremes of body mass or the acutely ill. [email or web address]nk[facility] eGFR 69 >=60 mL/min/1. 73 m?? [facility] Comment: The eGFR was calculated using the CKD-EPI equation. As with all creatinine based estimates of kidney function, eGFR values calculated with the CKD-EPI equation are not accurate in patients with acute kidney failure, extremes of body mass or the acutely ill. [email or web address]nk[facility] Blood specimen (specimen) 08/30/2019 2:53 AM EDT 08/30/2019 3:01 AM EDT Narrative Resulting Agency Comment Spec In Lab Manish Benitez MD CHEMISTRY ORDERABL ES [facility] [place] [address] * Triglyceride (08/30/2019 2:53 AM EDT) Triglyceride 203 mg/dL [facility] Comment: Average Risk/Lower Risk: <150 mg/dL Borderline High Risk: 150-199 mg/dL High Risk: 200-499 mg/dL Very High Risk: >ui=545 mg/dL Blood specimen (specimen) 08/30/2019 2:53 AM EDT 08/30/2019 3:01 AM EDT Narrative Resulting Agency Comment Spec In Lab Manish Benitez MD CHEMISTRY ORDERABL ES [facility] [place] [address] * HDL/Cholesterol Profile (08/30/2019 2:53 AM EDT) Cholesterol, Total 220 mg/dL [facility] Comment: Lower Risk: <200 mg/dL Average Risk: 200-239 mg/dL Higher Risk: >bi=299 mg/dL HDL Cholesterol 34 mg/dL [facility] Comment: Males: ?? Higher Risk: <40 mg/dL Females: ?? HIgher Risk: <50 mg/dL Cholesterol/HDL Ratio 6.5 ratio [facility] Chol/HDL Interpretation See Note [facility] Comment: Lipid management should be guided by a patient? s ASCVD risk, goals and preferences. ACC/AHA Guidelines recommend high intensity statin if clinical ASCVD or LDL greater than or equal to 190 mg/dL. http://HubSpot.com/QDP-BBF-Okgqtqhxc Measure LDL if Total Cholesterol minus HDL Cholesterol is greater than 220 mg/dL. Adults aged 40-75 with LDL 70-189 mg/dL should have their 10 year ASCVD risk estimated with the ACC/AHA ASCVD risk flight surveyor http://tools.acc.org/YXRGG-Fxmw-Usisipikp/ Statin should be discussed if risk greater [...] ES Performing Organization Address [facility] de Phone Number [facility] [place] [address] * LDL Cholesterol, Direct (08/30/2019 2:53 AM EDT) Pathologist [facility] LDL Cholesterol, Direct 165 mg/dL [facility] Comment: Lowest Risk: <100 mg/dL Lower Risk: 100-129 mg/dL Borderline High Risk: 130-159 mg/dL High Risk: 160-189 mg/dL Very High Risk: >cb=256 mg/dL Blood specimen (specimen) 08/30/2019 2:53 AM EDT 08/30/2019 3:01 AM EDT Narrative Resulting Agency Comment Spec In Lab Manish Benitez MD CHEMISTRY ORDERABL ES Performing Organization Address [facility] de Phone Number [facility] [place] [address] * Hemoglobin A1c (08/30/2019 2:53 AM EDT) Pathologist [facility] Hemoglobin A1c 5.4 4.3 - 5.6 % [facility] [...] Mellitus, Diabetes Care 2013; 36: Suppl. 1, A17-36 Estimated Average Glucose 108 mg/dL [facility] Comment: [...] available on the ADA website. Luis PANIAGUA, Eam J, Charity R, et al. ??Translating the A1C assay into estimated average glucose values. ??Diabetes Care 2008:31(8):8297-5175. Blood specimen (specimen) 08/30/2019 2:53 AM EDT 08/30/2019 3:01 AM EDT Narrative Resulting Agency Comment Spec In Lab Manish Benitez MD CHEMISTRY ORDERABL ES Performing Organization Address [facility] de Phone Number [facility] [place] [phone] * CK (08/30/2019 2:53 AM EDT) Creatine Kinase 82 0 - 160 unit/L [facility] Blood specimen (specimen) 08/30/2019 2:53 AM EDT 08/30/2019 3:01 AM EDT Narrative Resulting Agency Comment Spec In Lab Manish Benitez MD CHEMISTRY ORDERABL ES Performing Organization Address [facility] de Phone Number [facility] [place] [phone] * Troponin (08/30/2019 2:53 AM EDT) Troponin-T [...] ischemia ?? New or presumed new significant [place]-glwqbjk-F wave (ST-T) changes or new left bundle [...] additional sample may be indicated. Reference: Third Leeds Definition of Myocardial Infarction. Journal of the [place] College [employer] 2012;60:1581-98 Blood specimen (specimen) 08/30/2019 2:53 AM EDT 08/30/2019 3:01 AM EDT Narrative Resulting Agency Comment Spec In Lab Manish Benitez MD CHEMISTRY ORDERABL ES Performing Organization Address City/State/[facility] Co de Phone Number [facility] [place] [address] * (ABNORMAL) Differential, Automated (08/29/2019 8:30 PM EDT) Neutrophil % 56.5 % [facility] Neutrophil Absolute 3.58 1.70 - 6.10 x10(3)/mc L [facility] Lymph % 25.9 % [facility] Lymphocytes Abs 1.6 0.9 - 3.2 x10(3)/mc L [facility] Monocyte % 8.8 % [facility] Monocyte Abs 0.6 0.3 - 0.9 x10(3)/mc L [facility] Eos % 7.7 % [facility] Eosinophils Abs 0.5(H) 0.0 - 0.4 x10(3)/[facility] Basophil % 0.8 % [facility] Baso Absolute 0.0 0.0 - 0.1 x10(3)/[facility] Immature Gran % 0.30 % [facility] Comment: Immature granulocytes(IG's)percentage and absolute count will include metamyelocytes, myelocytes, and promyelocytes. Blood smears from CBCs yielding IG's will be scanned manually for concordance. If this scan disagrees with the automated IG or if promyelocytes are noted, a manual differential will be performed. Immature Gran Absolute 0.02 0.00 - 0.04 x10(3)/[facility] Blood specimen (specimen) 08/29/2019 8:30 PM EDT 08/29/2019 9:11 PM EDT Narrative Resulting Agency Comment Spec In Lab Abeba SANDRA HEMATOLOGY ORDERABLE S [facility] [place] [address] * (ABNORMAL) Hemogram (08/29/2019 8:30 PM EDT) White Blood Cell 6.3 4.0 - 9.5 x10(3)/[facility] Red Blood Cell 5.03 4.00 - 5.21 x10(6)/[facility] Hemoglobin 15.3 11.7 - 15.5 gm/dL [facility] Hematocrit 46.4(H) 35.7 - 45.8 % [facility] Mean Cell Volume 92.2 82.6 - 94.4 fL [facility] Mean Cell Hemoglobin 30.4 27.1 - 32.0 pg [facility] Mean Cell Hemoglobin Concentration 33.0 31.7 - 35.0 gm/dL [facility] Platelet 267 145 - 357 x10(3)/mc L [facility] RDW Standard Deviation 46.4(H) 37.0 - 46.0 fL [facility] RDW coefficient of variation 13.6 11.5 - 14.1 % [facility] Mean Platelet Volume 11.3 7.6 - 12.9 fL [facility] NRBC% auto 0.0 % [facility] NRBC Absolute 0.000 0.000 - 0.000 x10(3)/mc L [facility] Blood specimen (specimen) 08/29/2019 8:30 PM EDT 08/29/2019 9:11 PM EDT Narrative Resulting Agency Comment Spec In Lab Abeba SANDRA HEMATOLOGY ORDERABLE S [facility] [place] [address] * Heparin (unfractionated) Level (08/29/2019 8:30 PM EDT) UF Heparin 0.46 IU/mL [facility] Comment: Guidelines for therapeutic [...] MD HEMATOLOGY ORDERAB LES Performing Organization Address [facility]/ZIP Co de Phone Number [facility] [place] [address] * CK (08/29/2019 8:30 PM EDT) Creatine Kinase 94 0 - 160 unit/L [facility] Blood specimen (specimen) 08/29/2019 8:30 PM EDT 08/29/2019 9:11 PM EDT Narrative Resulting Agency Comment Spec In Lab Manish Benitez MD CHEMISTRY ORDERABL ES Performing Organization Address [facility] Co de Phone Number [facility] [place] [address] * Troponin (08/29/2019 8:30 PM EDT) Troponin-T [...] ischemia ?? New or presumed new significant RO-tzhtepo-T wave (ST-T) changes or new left bundle [...] additional sample may be indicated. Reference: Third Leeds Definition of Myocardial Infarction. Journal of the [place] College [employer]iology 2012;60:1581-98 Blood specimen (specimen) 08/29/2019 8:30 PM EDT 08/29/2019 9:11 PM EDT Narrative Resulting Agency Comment Spec In Lab Manish Benitez MD CHEMISTRY ORDERABL ES Performing Organization Address [facility] Co de Phone Number [facility] [place] [address] * EKG 12 Lead (08/29/2019 4:19 PM EDT) Ventricular rate 67 BPM MUSE SYSTEM Atrial Rate 67 BPM MUSE SYSTEM P-R Interval 164 ms MUSE SYSTEM QRS Duration 80 ms MUSE SYSTEM Q-T Interval 478 ms MUSE SYSTEM QTC Calculated (Bezet) 505 ms MUSE SYSTEM Calculated P Eucha 34 degrees MUSE SYSTEM Calculated R Eucha 30 degrees MUSE SYSTEM Calculated T Eucha -29 degrees MUSE SYSTEM INTERPRETATION Demand pacemaker; [...] Benitez MD ECG ORDERABLES Performing Organization Address [facility] Co de Phone Number MUSE SYSTEM * (ABNORMAL) Differential, Automated (08/29/2019 3:10 PM EDT) Neutrophil % 58.3 % [facility] Neutrophil Absolute 3.79 1.70 - 6.10 x10(3)/mc L [facility] Lymph % 22.7 % [facility] Lymphocytes Abs 1.5 0.9 - 3.2 x10(3)/mc L [facility] Monocyte % 10.3 % [facility] Monocyte Abs 0.7 0.3 - 0.9 x10(3)/mc L [facility] Eos % 7.8 % [facility] Eosinophils Abs 0.5(H) 0.0 - 0.4 x10(3)/[facility] Basophil % 0.6 % [facility] Baso Absolute 0.0 0.0 - 0.1 x10(3)/[facility] Immature Gran % 0.30 % [facility] Comment: Immature granulocytes(IG's)percentage and absolute count will include metamyelocytes, myelocytes, and promyelocytes. Blood smears from CBCs yielding IG's will be scanned manually for concordance. If this scan disagrees with the automated IG or if promyelocytes are noted, a manual differential will be performed. Immature Gran Absolute 0.02 0.00 - 0.04 x10(3)/[facility] Blood specimen (specimen) 08/29/2019 3:10 PM EDT 08/29/2019 3:50 PM EDT Narrative Resulting Agency Comment Spec In Lab [place] SANDRA HEMATOLOGY ORDERABLE S [facility] [place] [address] * (ABNORMAL) Hemogram (08/29/2019 3:10 PM EDT) White Blood Cell 6.5 4.0 - 9.5 x10(3)/[facility] Red Blood Cell 4.69 4.00 - 5.21 x10(6)/[facility] Hemoglobin 14.1 11.7 - 15.5 gm/dL [facility] Hematocrit 43.8 35.7 - 45.8 % [facility] Mean Cell Volume 93.4 82.6 - 94.4 fL [facility] Mean Cell Hemoglobin 30.1 27.1 - 32.0 pg [facility] Mean Cell Hemoglobin Concentration 32.2 31.7 - 35.0 gm/dL [facility] Platelet 235 145 - 357 x10(3)/mc L [facility] RDW Standard Deviation 47.2(H) 37.0 - 46.0 fL [facility] RDW coefficient of variation 13.7 11.5 - 14.1 % [facility] Mean Platelet Volume 11.5 7.6 - 12.9 fL [facility] NRBC% auto 0.0 % [facility] NRBC Absolute 0.000 0.000 - 0.000 x10(3)/mc L [facility] Blood specimen (specimen) 08/29/2019 3:10 PM EDT 08/29/2019 3:50 PM EDT Narrative Resulting Agency Comment Spec In Lab [place] SANDRA HEMATOLOGY ORDERABLE S Performing Organization Address [facility] Co de Phone Number [facility] [place] [address] * Hepatic Function Panel (08/29/2019 3:10 PM EDT) Protein, Total 7.1 6.1 - 8.0 gm/dL [facility] Albumin 4.0 3.2 - 5.2 gm/dL [facility] Aspartate Aminotransferase 25 0 - 30 unit/L [facility] Alanine Aminotransferase 19 0 - 30 unit/L [facility] Alkaline Phosphatase 49 35 - 105 unit/L [facility] Bilirubin, Total 0.7 0.2 - 1.3 mg/dL [facility] Bilirubin, Direct 0.1 0.0 - 0.3 mg/dL [facility] Blood specimen (specimen) 08/29/2019 3:10 PM EDT 08/29/2019 3:52 PM EDT Narrative Resulting Agency Comment Spec In Lab Manish Benitez MD CHEMISTRY ORDERABL ES Performing Organization Address [facility]/ZIP Co de Phone Number [facility] [place] [address] * TSH (08/29/2019 3:10 PM EDT) Thyroid Stimulating Hormone 1.87 0.27 - 4.20 mcIU/mL [facility] Blood specimen (specimen) 08/29/2019 3:10 PM EDT 08/29/2019 3:52 PM EDT Narrative Resulting Agency Comment Spec In Lab Manish Benitez MD CHEMISTRY ORDERABL ES Performing Organization Address [facility]/ZIP Co de Phone Number [facility] [place] [address] * (ABNORMAL) pro-Brain Natriuretic Peptide (08/29/2019 3:10 PM EDT) Pathologist [facility] NT-proBNP 1,242(H) <=125 pg/mL [facility] Blood specimen (specimen) 08/29/2019 3:10 PM EDT 08/29/2019 3:52 PM EDT Narrative Resulting Agency Comment Spec In Lab Manish Benitez MD CHEMISTRY ORDERABL ES Performing Organization Address [facility] Co de Phone Number [facility] [place] [address] * CK (08/29/2019 3:10 PM EDT) Creatine Kinase 96 0 - 160 unit/L [facility] Blood specimen (specimen) 08/29/2019 3:10 PM EDT 08/29/2019 3:52 PM EDT Narrative Resulting Agency Comment Spec In Lab Manish Benitez MD CHEMISTRY ORDERABL ES Performing Organization Address [facility] Co de Phone Number [facility] [place] [address] * Troponin (08/29/2019 3:10 PM EDT) Troponin-T [...] ischemia ?? New or presumed new significant OO-qdcvayt-P wave (ST-T) changes or new left bundle [...] additional sample may be indicated. Reference: Third Leeds Definition of Myocardial Infarction. Journal of the [place] College [employer]iology 2012;60:1581-98 Blood specimen (specimen) 08/29/2019 3:10 PM EDT 08/29/2019 3:52 PM EDT Narrative Resulting Agency Comment Spec In Lab Manish Benitez MD CHEMISTRY ORDERABL ES [facility] [place] [address] * (ABNORMAL) APTT (08/29/2019 3:10 PM EDT) Partial Thromboplastin Time 132(Criti edy) 25 - 37 sec [facility] Comment: Critical Result [...] MD HEMATOLOGY ORDERAB LES Performing Organization Address [facility] Co de Phone Number [facility] [place] [address] * (ABNORMAL) Prothrombin Time (08/29/2019 3:10 PM EDT) Prothrombin Time 13.3(H) 9.4 - 12.5 sec [facility] International Normalization Ratio 1.2 [facility] Comment: An INR [...] MD HEMATOLOGY ORDERAB LES Performing Organization Address [facility] Co de Phone Number [facility] [place] [address] * (ABNORMAL) Basic Metabolic Panel (non-fasting) (08/29/2019 3:10 PM EDT) Glucose 83 65 - 199 mg/dL [facility] Comment:Diabetes: >=200 mg/d L plus symptoms Blood Urea Nitrogen 15 8 - 18 mg/dL [facility] Creatinine 0.84 0.70 - 1.20 mg/dL [facility] Sodium 138 135 - 145 mmol/L [facility] Potassium 4.2 3.5 - 5.0 mmol/L [facility] Comment: Please note: ??Patients with WBC >100,000 may have falsely elevated Potassium levels. ??For accurate Potassium quantification in these patients send serum separator tube (gold top) for subsequent determinations. ??Contact the Clinical Chemistry Laboratory if there are any questions. Chloride 105 98 - 107 mmol/L [facility] Carbon Dioxide 19(L) 22 - 31 mmol/L [facility] Anion Gap 14 5 - 15 mmol/L [facility] Calcium 9.2 8.5 - 10.5 mg/dL [facility] Est Glomerular Filtration Rate 81 >=60 mL/min/1. 73 m?? [facility] Comment: The eGFR was calculated using the CKD-EPI equation. As with all creatinine based estimates of kidney function, eGFR values calculated with the CKD-EPI equation are not accurate in patients with acute kidney failure, extremes of body mass or the acutely ill. [email or web address]/Congonkf eGFR 94 >=60 mL/min/1. 73 m?? [facility] Comment: The eGFR was calculated using the CKD-EPI equation. As with all creatinine based estimates of kidney function, eGFR values calculated with the CKD-EPI equation are not accurate in patients with acute kidney failure, extremes of body mass or the acutely ill. [email or web address]/[facility]nkf Blood specimen (specimen) 08/29/2019 3:10 PM EDT 08/29/2019 3:52 PM EDT Narrative Resulting Agency Comment Spec In Lab Manish Benitez MD CHEMISTRY ORDERABL ES [facility] [place] [address] documented in this encounter Visit Diagnoses Diagnosis [...] - Reason: Transfer to a Procedural area)1530 ([facility] Unhold - Provider: Admin Adt) atorvastatin (Lipitor) tablet 80 mg (CANCELED) 80 mg, Oral, EVERY EVENING, First dose on Wed08/29/19 at 1715, Until Discontinued, Routine 1701 (Given - Provider: Mark Nick RN) 1357 ([facility] Hold - Provider: Admin Adt - Reason: Transfer to a Procedural area)1530 ([facility] Unhold - Provider: Admin Adt) clopidogreL (Plavix) tablet 75 mg (CANCELED) 75 mg, Oral, DAILY, First dose on Wed08/30/19 at 0900, Until Discontinued, Routine 0842 (Given - Provider: Mark Nick RN)1357 ([facility] Hold - Provider: Admin Adt - Reason: Transfer to a Procedural area)1530 ([facility] Unhold - Provider: Admin Adt) DULoxetine DR (Cymbalta) capsule 60 mg 60 mg, Oral, NIGHTLY, First dose on Wed08/29/19 at 2100, Until Discontinued, Routine 2047 (Given - Provider: Efrain Verma RN) 1357 ([facility] Hold - Provider: Admin Adt - Reason: Transfer to a Procedural area)1530 ([facility] Unhold - Provider: Admin Adt)2029 [...] 0842 (Given - Provider: Mark Nick RN)135 ([facility] Hold - Provider: Admin Adt - Reason: Transfer to a Procedural area)153 ([facility] Unhold - Provider: Admin Adt)2029 [...] (Given - Provider: Efrain Verma RN) 1357 ([facility] Hold - Provider: Admin Adt [...] - Reason: Transfer to a Procedural area)1530 ([facility] Unhold - Provider: Admin Adt) [...] - Reason: Transfer to a Procedural area)1530 ([facility] Unhold - Provider: Admin Adt) [...] Wed08/31/19 at 2024, Sleep, insomnia, Routine 1357 ([facility] Hold - Provider: Admin Adt - Reason: Transfer to a Procedural area)1530 ([facility] Unhold - Provider: Admin Adt) [...] UA) documented in this encounter Care Teams Designer/Writer Relationship Specialty Start Date End Date Tim Rogers DNP [address] [place] [address] PCP - General Family Medicine 08/28/19 06/08/21 documented as of this encounter
--- OUTSIDE RECORDS SUMMARY | 2024-04-10 17:13 | XMS_ITS | Encounter Summary ---
Author Organization [facility] Address [address] [place] [address] Care Team Providers Care Airborne Operations Manager Name Role Phone Unknown, Provider Primary Care Provider Unava ilable Encounter Details Date Type Department Care Team (Late st Contact Info) Description 09/16/2020 Lab Requisition [facility] Pathology & Laboratory Medicine - [facility] [address], [place] [phone] Outr Resulting Lab, Provider Social History Tobacco [...] IgE 13 <158 IU/mL 09/18/2020 8:45 EDT [facility] Blood VENOUS BLOOD / Unknown 09/16/2020 13:43 EDT 09/16/2020 20:51 EDT us Provider Outr Resulting Lab CHEMISTRY & BLOOD GA S ORDERABLES Final Result [facility] [address] [place] [address] * EXTRACTABLE NUCLEAR ANTIGEN PANEL (09/16/2020 13:43 EDT) SSA Antibody 1.2 <20.0 Units 09/17/2020 15:28 EDT [facility] Comment: ? Negative: <20.0 Units ? Weak Positive: 20.0 - 39.9 Units ? Moderate Positive: 40.0 - 80.0 Units ? Strong Positive: >80.0 Units Results were obtained with the ApplifierVA QUANTA Lite SS-A VAIBHAV. ??SS-A values obtained with different manufacturers' assay methods may not be used interchangeably. ??The magnitude of the reported IgG levels cannot be correlated to an endpoint titer. SSB Antibody 4.9 <20.0 Units 09/17/2020 15:28 [facility] Comment: ? Negative: <20.0 Units ? Weak Positive: 20.0 - 39.9 Units ? Moderate Positive: 40.0 - 80.0 Units ? Strong Positive: >80.0 Units Results were obtained with the ApplifierVA QUANTA Lite SS-B VAIBHAV. ??SS-B values obtained with different manufacturers' assay methods may not be used interchangeably. ??The magnitude of the reported IgG levels cannot be correlated to an endpoint titer. SM (Alcantar) Antibody 3.4 <20.0 Units 09/17/2020 15:28 [facility] Comment: ? Negative: <20.0 Units ? Weak Positive: 20.0 - 39.9 Units ? Moderate Positive: 40.0 - 80.0 Units ? Strong Positive: >80.0 Units Results were obtained with the ApplifierVA QUANTA Lite Sm VAIBHAV. ??Sm values obtained with different manufacturers' assay methods may not be used interchangeably. ??The magnitude of the reported IgG levels cannot be correlated to an endpoint titer. COUNTY DEMONSTRATOR Antibody 1.5 <20.0 Units 09/17/2020 15:28 EDT [facility] Comment: ? Negative: <20.0 Units ? Weak Positive: 20.0 - 39.9 Units ? Moderate Positive: 40.0 - 80.0 Units ? Strong Positive: >80.0 Units Results were obtained with the [employer] Quanta Lite COUNTY DEMONSTRATOR VAIBHAV. COUNTY DEMONSTRATOR values obtained with different dimensional integration engineer's assay methods may not be used interchangeaby. ??The magnitude of the reported IgG levels cannot be be correlated to an endpoint titer. A positive result in the Quanta Lite COUNTY DEMONSTRATOR VAIBHAV indicates the presence of antibodies reactive with the COUNTY DEMONSTRATOR/Sm complex but cannot distinguish between anti-Sm and anti-COUNTY DEMONSTRATOR activity. Blood VENOUS BLOOD / Unknown 09/16/2020 13:43 EDT 09/16/2020 20:51 EDT us Provider Outr Resulting Lab IMMUNOLOGY AND SEROL OGY ORDERABLES Final Result [facility] [address] [place] [id number] * (ABNORMAL) ANTI NUCLEAR AB (KATHRINE), IFA (09/16/2020 13:43 EDT) KATHRINE Interpretation Positive(A) Negative 09/17/2020 15:08 EDT [facility] Comment: For titers greater than [...] Pattern 1 1:160 Speckled 09/17/2020 15:08 EDT [facility] Blood VENOUS BLOOD / Unknown 09/16/2020 13:43 EDT 09/16/2020 20:51 EDT Narrative [facility] - 09/17/2020 15:08 EDT Results were obtained with the INOYasuu NOVA Lite HEp-2 KATHRINE Kit by indirect immunofluorescence. us Provider Outr Resulting Lab IMMUNOLOGY AND SEROL OGY ORDERABLES Final Result [facility] [address] [place] [address] documented in this encounter Visit Diagnoses Not on filedocumented in this encounter Care Teams Airborne Operations Manager Relationship Specialty Start Date End Date Unknown, Provider, PCP - General 01/28/10 documented as of this encounter
--- OUTSIDE RECORDS SUMMARY | 2024-04-10 17:13 | XMS_ITS | Encounter Summary ---
Author Organization [facility] Address [address] [place] [address] Care Team Providers Care Ship Mate Name Role Phone Unknown, Provider Primary Care Provider Unava ilable Encounter Details Date Type Department Care Team (Late st Contact Info) Description 09/06/2020 Lab [facility]quisition [facility] Pathology & Laboratory Medicine - [facility] [address], [place] [address] Outr Resulting Lab, Provider Social History Tobacco [...] MICROBIOLOGY - GENER AL ORDERABLES Final Result [facility] [address] [place] [address] * COVID-19 TESTING (09/05/2020 14:00 EDT) COVID-19 rt-PCR Result Negative Negative 09/07/2020 14:05 EDT [facility] Comment: This test [...] developed and its performance characteristics determined by [facility]. It has not been cleared or approved [...] This test is based on the [facility] COVID-19 Emergency Use Authorization (EUA) assay, with minor modification as defined by the FDA Performed on the [employer] 7 Flex RT-PCR System. Performing Lab [facility] 09/07/2020 14:05 EDT [facility] Swab 09/05/2020 14:0 0 EDT 09/06/2020 16:13 EDT us Provider Outr Resulting Lab MICROBIOLOGY - GENER AL ORDERABLES Final Result [facility] [address] [place] [address] documented in this encounter Visit Diagnoses Not on filedocumented in this encounter Care Teams Ship Mate Relationship Specialty Start Date End Date Unknown, Provider, PCP - General 01/28/10 documented as of this encounter
--- OUTSIDE RECORDS SUMMARY | 2024-04-10 17:13 | XMS_ITS | Encounter Summary ---
Author Organization [facility] Address [address] [place] [address] Care Team Providers Care Preparation Supervisor Canning Name Role Phone Unknown, Provider Primary Care Provider Unava ilable Encounter Details Date Type Department Care Team (Late st Contact Info) Description 01/07/2021 Lab Requisition [facility] Pathology & Laboratory Medicine - [address] [id number] Outr Resulting Lab, Provider Social History Tobacco [...] MICROBIOLOGY - GENER AL ORDERABLES Final Result [facility] [address] [place] [address] * COVID-19 TESTING (01/06/2021 14:00 EDT) COVID-19 rt-PCR Result Negative Negative 01/08/2021 12:42 EDT [facility] Comment: This test has [...] was performed using the ric SARS-CoV-2 assay ([employer] on the Ric 6800 System Performing Lab Ric [address] [facility] Lab 01/08/2021 12:42 EDT [facility] Swab 01/06/2021 14:0 0 EDT 01/07/2021 17:19 EDT us Provider Outr Resulting Lab MICROBIOLOGY - GENER AL ORDERABLES Final Result [facility] [address] [place] [address] documented in this encounter Visit Diagnoses Not on filedocumented in this encounter Care Teams Preparation Supervisor Canning Relationship Specialty Start Date End Date Unknown, Provider, PCP - General 01/28/10 documented as of this encounter
--- OUTSIDE RECORDS SUMMARY | 2024-04-10 17:13 | XMS_ITS | Encounter Summary ---
[place] [address] Care Team Providers Care Hay Rake Operator Name Role Phone Dustin Nino MD Primary Care Provider [phone] Encounter Details Date Type Department Care Team (Late st Contact Info) Description 06/19/2010 Abstract [place] [address] Lashonda York MD [facility] [place] [address] Social History Tobacco Use Types Packs/Day Years [...] 3:00 PM EDT Office Visit [place] [phone] Mary Reyes APRN [facility] [place] [address] documented as of this encounter Visit Diagnoses Not on filedocumented in this encounter Care Teams Hay Rake Operator Relationship Specialty Start Date End Date Dustin Nino MD [facility] [address] [place] [address] PCP - General 06/11/10 08/27/19 documented as of this encounter
--- OUTSIDE RECORDS SUMMARY | 2024-04-10 17:13 | XMS_ITS | Encounter Summary ---
[place] [address] Care Team Providers Care Leaded Glass Installer Name Role Phone Dustin Nino MD Primary Care Provider [phone] Encounter Details Date Type Department Care Team (Late st Contact Info) Description 06/17/2010 [place] [address] Lashonda York MD [facility] [address] ALLERGY [place] [address] Social History Tobacco Use Types Packs/Day Years [...] 3:00 PM EDT Office Visit [place] [phone] Mary Reyes APRN [facility] [place] [address] documented as of this encounter Visit Diagnoses Not on filedocumented in this encounter Care Teams Leaded Glass Installer Relationship Specialty Start Date End Date Dustin Nino MD [facility] [address] [place] [address] PCP - General 06/11/10 08/27/19 documented as of this encounter
--- OUTSIDE RECORDS SUMMARY | 2024-04-10 17:13 | XMS_ITS | Encounter Summary ---
Author Organization [facility] Address [address] [place] [address] Care Team Providers Care Manager Body Name Role Phone Unknown, Provider Primary Care Provider Unava ilable Encounter Details Date Type Department Care Team (Late st Contact Info) Description 05/18/2020 Lab Requisition [facility] Pathology & Laboratory Medicine - [address] [address] Outr Resulting Lab, Provider Social History Tobacco [...] C Antibody Negative Negative 05/20/2020 11:15 EDT [facility] Blood VENOUS BLOOD / Unknown 05/17/2020 14:00 EST 05/19/2020 16:37 EDT us Provider Outr Resulting Lab CHEMISTRY & BLOOD GA S ORDERABLES Final Result [facility] [address] [place] [address] * CELIAC DISEASE PANEL (05/17/2020 14:00 EST) Tissue Transglutaminase Antibody IGA <1.2 <4.0 U/mL 05/20/2020 13:21 EDT [facility] Comment: A negative result may be due to IgA deficiency and does not rule out celiac disease. ? Negative: ??<4.0 U/mL ? Weak Positive: ??4.0 - 10.0 U/mL ? Positive: ??>10.0 U/mL Results were obtained with the [employer] Lite R h-tTG IgA VAIBHAV assay on the [employer]. IgA 283 85 - 499 mg/dL 05/20/2020 13:21 EDT [facility] Celiac Disease Interpretation Negative Serology. Celiac disease unlikely. Approximately 10% of patients with celiac disease are seronegative. Patients who are already adhering to a gluten-free diet may also be seronegative. If celiac disease is highly clinically suspected, referral to gastroenterology for additional evaluation is recommended. 05/20/2020 13:21 EDT [facility] Blood VENOUS BLOOD / Unknown 05/17/2020 14:00 EST 05/19/2020 16:27 EDT us Provider Outr Resulting Lab IMMUNOLOGY AND SEROL OGY ORDERABLES Final Result Performing Organization Address [facility] Co de Phone Number [facility] [address] [place] [address] documented in this encounter Visit Diagnoses Not on filedocumented in this encounter Care Teams Manager Body Relationship Specialty Start Date End Date Unknown, Provider, PCP - General 01/28/10 documented as of this encounter
--- OUTSIDE RECORDS SUMMARY | 2024-04-10 17:13 | XMS_ITS | Encounter Summary ---
Author Organization [facility] Address [address] [place] [address] Care Team Providers Care Knotter Name Role Phone Unavailable Primary Care Provider Unavailabl e Encounter Details Date Type Department Care Team (Late st Contact Info) Description 01/19/2000 Results Only [facility] conversion [address] [place] [address] Channing Brand MD [address] [place] [address] Social History Tobacco Use Types [...] ? LOIDA ROQUE ? Accession #: ? [id number] ? : ? 1970 (Age: 29) ??F [...] reviewed and electronically signed by: Gerald Nino [facility] Report ??Date: 01/22/2000 16:44 By the [...] a discernible squamocolumnar junction. BLOCK RHODES B1,B2 ?Non Destructive Testing Supervisor section of anterior endomyometrium B3 ?Possible myomatous nodule from the anterior half of the specimen B4 ?Non Destructive Testing Supervisor section of posterior endomyometrium B5 ?Non Destructive Testing Supervisor section of posterior endo- and ectocervix B6 ?Anterior endo- and ectocervix (Dr. Garcia)/[facility] End of Report [facility] 01/19/2000 01/20/2000 14: 59 EST us Channing Brand MD PATHOLOGY ORDERABLES Final Resul t [facility] [address] [place] [address] documented in this encounter Visit Diagnoses Not on filedocumented in this encounter
--- OUTSIDE RECORDS SUMMARY | 2024-04-10 17:13 | XMS_ITS | Encounter Summary ---
Author Organization [facility] Address [address] [place] [address] Care Team Providers Care Blast Furnace Checker Name Role Phone Unavailable Primary Care Provider Unavailabl e Encounter Details Date Type Department Care Team (Late st Contact Info) Description 01/02/2000 Results Only [facility] conversion [address] [place] [address] Channing Brand MD [address] [place] [address] Social History Tobacco Use Types [...] ? LOIDA ROQUE ? Accession #: ? [id number] : ? 1970 (Age: 29) ??F ?Collect [...] ORDERABLES Final Resul t [facility] [address] [place] [address] documented in this encounter Visit Diagnoses Not on filedocumented in this encounter
--- OUTSIDE RECORDS SUMMARY | 2024-04-10 17:13 | XMS_ITS | Encounter Summary ---
Author Organization [facility] [place] [address] Care Team Providers Care Roll Operator Name Role Phone Dustin Romero MD Primary Care Provider [phone] Reason for Visit * Reason Comments Allergic Rhinitis Encounter Details Date Type Department Care Team (Late st Contact Info) Description 06/26/2010 9:15 AM EDT [place] [address] Lashonda York MD [facility] [place] [address] Asthma (Primary Dx); Rhinitis; Rhinitis, nonallergic, chronic [...] pollen: Axel Tree pollen: Birch, Shay, Maple, [place], Beech, [place] pollen: [place], Short Ragweed, Pigweed, Molds: [...] 3:00 PM EDT Office [place] [address] [place] [address] Scheduled Orders Name Type Priority Associated Diagnoses Orde r Schedule Spirometry without bronchodilator PFT Routine Asthma Ordered: 06/26/2010 documented as of this encounter Visit Diagnoses Diagnosis Asthma- Primary Unspecified asthma Rhinitis Chronic rhinitis Rhinitis, nonallergic, chronic Chronic rhinitis documented in this encounter Care Teams Roll Operator Relationship Specialty Start Date End Date Dustin Romero MD [facility] [address] [place] [address] [place] [address] PCP - General 06/11/10 08/27/19 documented as of this encounter
--- OUTSIDE RECORDS SUMMARY | 2024-04-10 17:13 | XMS_ITS | Encounter Summary ---
Author Organization [facility] Address [address] [place] [address] Care Team Providers Care Pellet Mill Operator Name Role Phone Unknown, Provider Primary Care Provider Unava ilable Encounter Details Date Type Department Care Team (Late st Contact Info) Description 07/27/2022 Lab Requisition [facility] Pathology & Laboratory Medicine - [facility] [address] [place], [place] [address] Outr Resulting Lab, Provider Social History Tobacco [...] Lyme Ab Negative Negative 07/28/2022 10:37 EDT [facility] Blood VENOUS BLOOD / Unknown 07/27/2022 10:39 EDT 07/27/2022 16:45 EDT us Provider Outr Resulting Lab IMMUNOLOGY AND SEROL OGY ORDERABLES Final Result [facility] [address] [place] [address] documented in this encounter Visit Diagnoses Not on filedocumented in this encounter Care Teams Pellet Mill Operator Relationship Specialty Start Date End Date Unknown, Provider, PCP - General 01/28/10 documented as of this encounter
--- OUTSIDE RECORDS SUMMARY | 2024-04-10 17:13 | XMS_ITS | Encounter Summary ---
Author Organization [facility] Address [address] [place] [address] Care Team Providers Care Machine Filler Servicer Name Role Phone Unavailable Primary Care Provider Unavailabl e Encounter Details Date Type Department Care Team (Late st Contact Info) Description 05/15/1999 Results Only [facility] conversion [address] [place] [address] Channing Brand MD [address] [place] [address] Social History Tobacco Use Types [...] ? LOIDA ROQUE ? Accession #: ? [id number] ? : ? 1970 (Age: 29) ??F [...] ORDERABLES Final Resul t [facility] [address] [place] [address] documented in this encounter Visit Diagnoses Not on filedocumented in this encounter
--- OUTSIDE RECORDS SUMMARY | 2024-04-10 17:13 | XMS_ITS | Encounter Summary ---
Author Organization [facility] [place] [address] Care Team Providers Care Partner Name Role Phone Tim Rogers DNP Primary Care Provider [phone] Encounter Details Date Type Department Care Team (Late st Contact Info) Description 08/28/2019 Ancillary Procedure Radiology Library at [facility] [place] [address] Veronica Bello, ROM [address] [place] [address] Social History Tobacco Use Types Packs/Day Years [...] 3:00 PM EDT Office Visit Gastroenterology at [facility] [place] [phone] Mary Reyes APRN [facility] [place] [address] documented as of this encounter Procedures Procedure Name Priority Date/Time Associated Diagnosis Comments FILM LIBRARY STORAGE ONLY DX CHEST Routine 08/28/2019 12:00 AM EDT documented in this encounter Results * Film Library- Storage Only DX Chest (08/28/2019 12:00 AM EDT) Narrative JAMAL - 08/29/2019 1:45 PM EDT This exam is auto-finalizing. It's purpose is for storage only. Veronica Bello RFID SYSTEMS ARCHITECT IMG FILM LIBRARY ORD ERABLES Performing Organization Address City/State/[facility] Co de Phone Number [place], [place] documented in this encounter Visit Diagnoses Not on filedocumented in this encounter Care Teams Partner Relationship Specialty Start Date End Date Tim Rogers DNP [address] [place] [address] PCP - General Family Medicine 08/28/19 06/08/21 documented as of this encounter
--- OUTSIDE RECORDS SUMMARY | 2024-04-10 17:13 | XMS_ITS | Encounter Summary ---
Author Organization [facility] Address [address] [place] [address] Care Team Providers Care Agricultural Scientist Name Role Phone Unavailable Primary Care Provider Unavailabl e Encounter Details Date Type Department Care Team (Late st Contact Info) Description 01/23/2010 Results Only [facility] Laboratory Services - [facility] [address] [place], [place] [id number] Kylee Vaca MD [address] [place] [address] Social History Tobacco Use Types [...] ? ROHAN, LOIDA ? Accession #: ? [id number] ? : ? 1970 (Age: 39) ??F ? Collect Date: ? 01/23/2010 ? Location: ? [facility] ? Receive Date: ? 01/24/2010 ? Provider: KYLEE VACA MD ? Copy to: DARWIN LEMON BONE PROCESS OPERATOR ? Final Pathologic Diagnosis: ? Skin of [...] Final Resul t [facility] [address] [place] [address] documented in this encounter Visit Diagnoses Not on filedocumented in this encounter
--- NOTE | 2024-04-10 17:17 | DI.RAD_ITS ---
Exam(s) XR CHEST 2V PA LATERAL EXAM: XR CHEST 2V PA LATERAL CLINICAL HISTORY: cough TECHNIQUE: 2D digital imaging was performed of the chest. Two images were obtained. PA and lateral views were obtained. COMPARISON: CR XR PORTABLE CHEST AP from 01/24/2024 FINDINGS: MEDIASTINUM: Normal. HEART: Normal. PULMONARY VASCULATURE: Normal. LUNGS: Clear. PLEURAL SPACE: No pleural effusion or pneumothorax. BONE:Within normal limits for the patient's age. There is an old healed right clavicular fracture. OTHER FINDINGS:Normal. IMPRESSION: No acute pulmonary findings. DATA REPOSITORY: RADIATION DOSE DELIVERED:
[2024-04-10 17:58] LABS: Abs Immature Grans 0.01 10^3/uL (0.0-0.06); Absolute Basophil Count 0.04 10^3/uL (0.0-0.2); Absolute Eosinophil Count 0.34 10^3/uL (0.0-0.7); Absolute Lymphocyte Count 1.67 10^3/uL (1.2-3.4); Absolute Monocyte Count 1.23 10^3/uL (0.1-0.8); Absolute Neutrophil Count 2.68 10^3/uL (1.2-6.7); Basophils % 0.7 %; Eosinophils % 5.7 %; HCT 45.5 % (36.0-46.0); HGB 15.1 g/dL (11.2-15.7); Immature Grans % 0.2 %; MCH 32.3 pg (27.0-33.0); MCHC 33.2 % (32.0-36.0); MCV 97 fL (80-95); MPV 10.6 fL (8.0-11.0); Monocytes % 20.6 %; Neutrophils % 44.8 %; Platelet Count 238 10^3/uL (130-400); RBC 4.68 10^6/uL (3.93-5.22); RDW 11.9 % (11.7-14.6); RDW-SD 42.9 fL; WBC 5.97 10^3/uL (4.4-10.8)
[2024-04-10 18:07] LABS: COVID-19 PCR Negative (Negative); Influenza A PCR Negative (Negative); Influenza B PCR Negative (Negative); RSV PCR Negative (Negative)
[2024-04-10 18:09] LABS: Source Nasopharynx
[2024-04-10 18:14] LABS: ALT 25 U/L (14-59); AST 15 U/L (15-37); Albumin 3.7 g/dL (3.4-5.0); Alkaline Phosphatase 59 U/L (46-116); Anion Gap 12.2 mmol/L (3-11); BUN 17 mg/dL (7-18); Bilirubin, Total 0.45 mg/dL (0.2-1.0); CO2 23.8 mmol/L (21.0-32.0); CREATININE 1.5 mg/dL (0.55-1.02); Calcium 9.5 mg/dL (8.5-10.1); Chloride 105 mmol/L (98-107); Glucose 90 mg/dL (74-106); Potassium 4.2 mmol/L (3.5-5.1); Sodium 141 mmol/L (136-145); Total Protein 8.4 g/dL (6.4-8.2)
[2024-04-10 18:45] LABS: NT-proBNP 1353 pg/mL (<300)
[2024-04-10 18:48] LABS: Troponin I 304 ng/L (<or=51)
[2024-04-10] MEDS: Furosemide 100 MG/10 ML VIAL 80 MG IVP (19:18)
[2024-04-10 19:26] LABS: Troponin I 273 ng/L (<or=51)
--- NOTE | 2024-04-10 20:00 | DI.VRAD_ITS ---
PROCEDURE INFORMATION: Exam: XR Chest Exam date and time: 04/10/2024 7:06 PM Age: 54 years old Clinical indication: Cough TECHNIQUE: Imaging protocol: Radiologic exam of the chest. Views: 2 views. COMPARISON: CT CHEST PE ABD PELVIS W 04/08/2024 6:20 PM FINDINGS: Lungs: Unremarkable. No consolidation. Pleural spaces: Unremarkable. No pleural effusion. No pneumothorax. Heart/Mediastinum: Unremarkable. No cardiomegaly. Bones/joints: Old right clavicle fracture. IMPRESSION: No acute abnormality identified. Dictated and Authenticated by: Jose Bernal MD. Orderin Simon Hollins MD
--- NOTE | 2024-04-10 20:19 | ED.GENADUL_ITS ---
Discharge Plan Disposition Patient Disposition: Home Condition: Stable Discharge Details Clinical Impression: URI (upper respiratory infection), Cough Primary Care Provider: Polo Pearce ED Provider: Jasen Montes Home Meds and New Rx's Prescriptions: New promethazine 6.25 mg/5 mL syrup 12.5 mg PO Q6H PRN (Reason: cough) Qty: 120 0RF benzonatate 100 mg capsule 100 mg PO TID PRN (Reason: cough) Qty: 30 0RF No Action ropinirole 1 mg tablet 1 mg PO BID Rx Instructions: @ 1600 and 2100 potassium chloride 20 mEq tablet,ER particles/crystals 40 meq PO BID atorvastatin 80 mg tablet 40 mg PO QPM Wegovy 0.5 mg/0.5 mL pen injector 0.5 mg subcut QWEEK Rx Instructions: administer weeks 5 through 8 of therapy Ubrelvy 50 mg tablet 50 mg PO ONCE Rx Instructions: as a single dose; may repeat once in >=2 hours after first dose if needed topiramate [Topamax] 100 mg tablet 100 mg PO QHS Qty: 90 3RF Aimovig Autoinjector 140 mg/mL auto-injector 140 mg subcut QMONTH Qty: 1 11RF fluticasone propionate [Flonase Allergy Relief] 9.9 ML spray,suspension 2 spray NS DAILY duloxetine [Cymbalta] 60 mg capsule,delayed release(DR/EC) 60 mg PO DAILY Qty: 30 2RF albuterol sulfate 90 mcg/actuation HFA aerosol inhaler 2 puff inhalation Q4H PRN loratadine [Allergy Relief (loratadine)] 10 mg tablet 10 mg PO DAILY PRN nitroglycerin 0.4 mg tablet, sublingual 0.4 mg sublingual Q5M PRN Rx Instructions: do not exceed 3 doses per episode clobetasol 0.05 % ointment 1 applic topical DIRECTED omeprazole 20 mg capsule,delayed release(DR/EC) 20 mg PO DAILY apixaban 5 mg tablet 5 mg PO BID Jardiance 10 mg tablet 10 mg PO DAILY ranolazine 1,000 mg tablet extended release 12 hr 1,000 mg PO BID montelukast 10 mg tablet 10 mg PO DAILY PRN gabapentin 600 mg tablet 600 mg PO QHS Qty: 90 3RF melatonin 10 mg capsule 10 mg PO HS PRN metoprolol tartrate 25 mg tablet 12.5 mg PO DAILY isosorbide mononitrate 10 mg tablet 5 mg PO ONCE Qty: 90 0RF Rx Instructions: give doses 7 hrs apart torsemide 20 mg Tablet 20 mg PO DAILY Qty: 90 0RF metolazone 2.5 mg tablet 2.5 mg PO PRN PRNQty: 0 0RF Discharge Instructions Instructions: Viral Upper Respiratory Infection, Adult (DC) Additional Instructions: Workup today stable in regards to your heart function. You were given a dose of IV Lasix to help with your breathing symptoms. No signs of bacterial infection or need for antibiotics. Please follow-up closely with your PCP. Return with any worsening of symptoms, difficulty breathing, chest pain or low oxygen levels Cough medication has been sent to the pharmacy for you to take as needed. HPI General Date/Time Provider Initiated Documentation: 04/10/24 17:00 . Limitations to Documentation: no limitations . Information obtained by: patient . HPI Narrative: 54-year-old female with past medical history of CKD, NSTEMI, CHF with recent diagnosis of viral URI presents for evaluation of persistent symptoms. She reports that she was in the emergency department 2 days ago. She reports that since then she feels like her shortness of breath is worsened particularly when lying flat. She reports some chest pressure that she has been having with laying flat and with the cough, but otherwise does not have chest pain or any exertional pain. When she is not laying flat she does not feel short of breath. She does have a nonproductive cough. Denies any lower extremity swelling or weight gain. Related Data Home Medications ?Medication ?Instructions ?Recorded ?Confirmed fluticasone propionate 50 2 spray NS DAILY 12/23/16 04/10/24 mcg/actuation nasal spray,suspension (Flonase Allergy Relief) ropinirole 1 mg tablet 1 mg PO BID 06/12/20 04/10/24 duloxetine 60 mg capsule,delayed 60 mg PO DAILY #30 mg 08/19/20 04/10/24 release (Cymbalta) albuterol sulfate 90 mcg/actuation 2 puff inhalation Q4H PRN 05/30/21 04/10/24 aerosol inhaler loratadine 10 mg tablet (Allergy 10 mg PO DAILY PRN 05/30/21 04/10/24 Relief (loratadine)) nitroglycerin 0.4 mg sublingual 0.4 mg sublingual Q5M PRN 09/25/21 04/10/24 tablet clobetasol 0.05 % topical ointment 1 applic topical DIRECTED 08/28/22 04/10/24 omeprazole 20 mg capsule,delayed 20 mg PO DAILY 08/28/22 04/10/24 release melatonin 10 mg capsule 10 mg PO HS PRN 04/16/23 04/10/24 apixaban 5 mg tablet 5 mg PO BID 08/13/23 04/10/24 empagliflozin 10 mg tablet 10 mg PO DAILY 08/13/23 04/10/24 (Jardiance) ranolazine 1,000 mg 1,000 mg PO BID 08/13/23 04/10/24 tablet,extended release,12 hr atorvastatin 80 mg tablet 40 mg PO QPM 09/16/23 04/10/24 montelukast 10 mg tablet 10 mg PO DAILY PRN 09/16/23 04/10/24 potassium chloride 20 mEq 40 meq PO BID 09/16/23 04/10/24 tablet,extended release(part/cryst) metolazone 2.5 mg tablet 2.5 mg PO PRN PRN #0 tabs 09/25/23 04/10/24 torsemide 20 mg tablet 20 mg PO DAILY #90 tabs 09/25/23 04/10/24 metoprolol tartrate 25 mg tablet 12.5 mg PO DAILY 10/05/23 04/10/24 erenumab-aooe 140 mg/mL 140 mg subcut QMONTH #1 mL 01/19/24 04/10/24 subcutaneous auto-injector (Aimovig Autoinjector) semaglutide (weight loss) 0.5 0.5 mg subcut QWEEK 01/19/24 04/10/24 mg/0.5 mL subcutaneous pen injector (Wegovy) topiramate 100 mg tablet (Topamax) 100 mg PO QHS #90 tab-caps 01/19/24 04/10/24 ubrogepant 50 mg tablet (Ubrelvy) 50 mg PO ONCE 01/19/24 04/10/24 isosorbide mononitrate 10 mg tablet 5 mg (1/2 x 10 mg) PO ONCE #90 tabs 01/26/24 04/10/24 gabapentin 600 mg tablet 600 mg PO QHS #90 tabs 03/14/24 04/10/24 benzonatate 100 mg capsule 100 mg PO TID PRN cough #30 caps 04/10/24 promethazine 6.25 mg/5 mL oral 12.5 mg (10 mL) PO Q6H PRN cough 04/10/24 syrup #120 mL Previous Rx's ?Medication ?Instructions ?Recorded duloxetine 60 mg capsule,delayed 60 mg PO DAILY #30 mg 08/19/20 release (Cymbalta) metolazone 2.5 mg tablet 2.5 mg PO PRN PRN #0 tabs 09/25/23 torsemide 20 mg tablet 20 mg PO DAILY #90 tabs 09/25/23 erenumab-aooe 140 mg/mL 140 mg subcut QMONTH #1 mL 01/19/24 subcutaneous auto-injector (Aimovig Autoinjector) topiramate 100 mg tablet (Topamax) 100 mg PO QHS #90 tab-caps 01/19/24 isosorbide mononitrate 10 mg tablet 5 mg (1/2 x 10 mg) PO ONCE #90 tabs 01/26/24 gabapentin 600 mg tablet 600 mg PO QHS #90 tabs 03/14/24 benzonatate 100 mg capsule 100 mg PO TID PRN cough #30 caps 04/10/24 promethazine 6.25 mg/5 mL oral 12.5 mg (10 mL) PO Q6H PRN cough 04/10/24 syrup #120 mL Allergies Allergy/AdvReac Type Severity Reaction Status Date / Time acetaminophen (From Tylenol) AdvReac Intermediate jittery Unverified 04/10/24 16:48 like too much caffeine clobetasol AdvReac Intermediate Skin Rash Verified 04/10/24 16:48 codeine AdvReac Mild Not able Verified 04/10/24 16:48 to sleep ibuprofen AdvReac migraines Unverified 04/10/24 16:48 environmental Allergy Mild sneezing/triggers Uncoded 04/10/24 16:48 her asthma General Stated Complaint: RespSymp MIKAELA: 4 Exam Narrative Exam Narrative: Review of Systems: All systems reviewed & are unremarkable except as noted in HPI and below Well-developed, no acute distress NCAT PERRL, normal conjunctiva RRR no murmur Unlabored respiratory effort clear bilaterally no crackles Nondistended abdomen soft nontender Extremities w/o edema Course Vital Signs Vital signs: Vital Signs Temperature 36.8 C 04/10/24 16:45 Pulse 68 04/10/24 16:45 Respiratory Rate 16 04/10/24 16:45 Blood Pressure 128/76 04/10/24 16:45 Pulse Oximetry 98 04/10/24 16:45 Temperature 36.8 C 04/10/24 17:24 Temperature Source Oral 04/10/24 17:24 Pulse 55 L 04/10/24 19:40 Pulse 55 L 04/10/24 19:40 Respiratory Rate 11 L 04/10/24 19:40 Respiratory Effort Normal, Non-Labored 04/10/24 17:54 Respiratory Depth Normal 04/10/24 17:54 Blood Pressure 121/66 04/10/24 19:30 Blood Pressure Mean 79 04/10/24 19:30 Blood Pressure Position Sitting 04/10/24 17:24 Pulse Oximetry 96 04/10/24 19:40 Oxygen Delivery Method Room Air 04/10/24 17:24 Oxygen Flow Rate 0 04/10/24 17:24 Pain Level 10 04/10/24 17:24 Lab/Test Results Lab/Test Results: Laboratory Tests Range/Units 04/10/24 04/10/24 04/10/24 17:25 17:52 18:53 WBC (4.4-10.8) 10^3/uL 5.97 RBC (3.93-5.22) 10^6/uL 4.68 Hgb (11.2-15.7) g/dL 15.1 Hct (36.0-46.0) % 45.5 MCV (80-95) fL 97 H MCH (27.0-33.0) pg 32.3 MCHC (32.0-36.0) % 33.2 RDW (11.7-14.6) % 11.9 Plt Count (130-400) 10^3/uL 238 MPV (8.0-11.0) fL 10.6 Immature Gran % % 0.2 Neutrophils % % 44.8 Lymphocytes % % 28.0 Monocytes % % 20.6 Eosinophils % % 5.7 Basophils % % 0.7 Nucleated RBC % (0.0-0.3) % 0.0 Absolute Neutrophils (1.2-6.7) 10^3/uL 2.68 Absolute Lymphocytes (1.2-3.4) 10^3/uL 1.67 Absolute Monocytes (0.1-0.8) 10^3/uL 1.23 H Absolute Eosinophils (0.0-0.7) 10^3/uL 0.34 Absolute Basophils (0.0-0.2) 10^3/uL 0.04 Sodium (136-145) mmol/L 141 Potassium (3.5-5.1) mmol/L 4.2 Chloride (98-107) mmol/L 105 Carbon Dioxide (21.0-32.0) mmol/L 23.8 Anion Gap (3-11) mmol/L 12.2 H BUN (7-18) mg/dL 17 Creatinine (0.55-1.02) mg/dL 1.5 H Est GFR (CKD-EPI 2020) (mL/min/1.73m2) 40.90 Glucose (74-106) mg/dL 90 Calcium (8.5-10.1) mg/dL 9.5 Total Bilirubin (0.2-1.0) mg/dL 0.45 AST (15-37) U/L 15 ALT (14-59) U/L 25 Alkaline Phosphatase (46-116) U/L 59 Troponin I (<or=51) ng/L 304 H* 273 H* NT-Pro-B Natriuret Pep (<300) pg/mL 1353 H Total Protein (6.4-8.2) g/dL 8.4 H Albumin (3.4-5.0) g/dL 3.7 COVID-19 Source Nasopharynx SARS-CoV-2 (PCR) (Negative) Negative Influenza Type A (PCR) (Negative) Negative Influenza Type B (PCR) (Negative) Negative RSV (PCR) (Negative) Negative Medical Decision Making Emergent evaluation of shortness of breath. The patient is not hypoxic or have any signs of respiratory distress or increased work of breathing. She does have a fairly significant cardiac history. I reviewed her medical record and her workup on Wednesday which included serial cardiac enzymes, lab work and CT imaging to evaluate for infection or pulmonary embolism. That workup was all benign. Given her worsened orthopnea, I did obtain blood work. Troponin elevation is consistent with prior and there is no acute EKG change. Her chest x-ray does not reveal significant volume overload signs of cardiomegaly or pulmonary edema. Her BNP was slightly elevated though consistent with her baseline. She was given a dose of IV Lasix. Her viral testing remains negative. Recommend continued supportive care. Cough medications were sent to the pharmacy. Recommend close follow-up with PCP and strict return precautions were advised. Quality:SDOH Health Related Social Needs: No Data to Display PFSH All Active Problems (Updated 04/10/24 @ 19:37 by Jasen Montes MD) Cough (Acute) URI (upper respiratory infection) (Acute) Abdominal pain (Acute) Diarrhea (Acute) Atypical migraine (Acute) Otalgia, right ear (Acute) Acute otitis media of right ear with perforated tympanic membrane (Acute) Non-ST elevation ME (NSTEMI) (Acute) Chronic kidney disease, stage III (moderate) (Acute) Hypermagnesemia (Acute) Acute hypokalemia (Acute) Ground glass opacity present on imaging of lung (Acute) Elevated troponin (Acute) CATIE (acute kidney injury) (Acute) Restrictive lung disease secondary to obesity (Acute) Allergic asthma (Acute) intermittent, controlled Dyspnea (Acute) Diarrhea (Acute) Congestive heart failure (Chronic) Sick euthyroidism (Acute) Carpal tunnel syndrome (Acute) GERD (gastroesophageal reflux disease) (Chronic) Bilateral renal artery stenosis (Acute) Encounter for weight loss counseling (Acute) Pulmonary emboli (Chronic) Arthritis of carpometacarpal (CMC) joint of left thumb (Acute) Avulsion fracture of right talus (Acute 12/30/21) Bilateral carpal tunnel syndrome (Acute) Paresthesia of hand, bilateral (Acute) Abnormal chest CT (Acute) Pulmonary hypertension (Acute) Atypical chest pain (Acute) PSVT (paroxysmal supraventricular tachycardia) (Acute) Acute non-ST elevation myocardial infarction (NSTEMI) (Acute) Elevated troponin I level (Acute) Right upper quadrant abdominal pain (Acute) Chronic heart failure with preserved ejection fraction (Chronic) Restless legs syndrome (Acute) Rhinitis, nonallergic, chronic (Acute) Tendinitis (Acute) Chest pain (Acute) Migraine headache without aura (Acute) Lichen sclerosus (Acute) MARYLOU (obstructive sleep apnea) (Chronic) Migraine with aura and without status migrainosus, not intractable (Acute 02/24/16) Medical History Myocardial infarction 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 Mild intermittent asthma Atherosclerosis of renal artery Heart failure Supraventricular tachycardia Atrial fibrillation Superior mesenteric artery stenosis (~03/10/22) see CTA abdomen and pelivs: 80% narrowing of SMA origin Renal artery stenosis (~03/10/22) right renal artery stenosis per CTA abomen/pelvis Hx of supraventricular tachycardia Infiltrate of lower lobe of left lung present on imaging study Acute non-ST elevation myocardial infarction (NSTEMI) COVID-19 Left lateral epicondylitis Arthritis of carpometacarpal (CMC) joint of left thumb Left wrist pain CHI (closed head injury) Acute bronchitis Non-ST elevation ME (NSTEMI) Insomnia Asthma Migraine Overweight Endometriosis Depression Surgical History History of radiofrequency ablation (RFA) procedure for cardiac arrhythmia Hx of tubal ligation History of partial hysterectomy Family History Daughter Migraines Mother Hypertension Father Heart disease Social History Smoking/Tobacco Use Status: Never Smoking risk assessment performed?: Yes Alcohol Intake: never Drug use: Never Substance use type: does not use Housing: house Current gender identity: female Do you feel safe at home: Yes Do you feel safe in your relationship?: Yes Female Reproductive History Menstrual Menopause type: surgical History History 2 Para 2 Hx # Term Pregnancies Multiple births Hx # Pregnancies Ectopic pregnancies AB induced Hx Number of Living Children AB spontaneous
== END 2024-04-10 19:45 | disposition home or self-care (01) ==
PROVIDERS: Emergency Provider Emergency Medicine; PCP Physician Assistant
DX: J06.9 Acute upper respiratory infection, unspecified (principal); R05.9 Cough, unspecified; N18.30 Chronic kidney disease, stage 3 unspecified; I50.9 Heart failure, unspecified; I25.2 Old myocardial infarction; I48.91 Unspecified atrial fibrillation
CPT/HCPCS: 36415; 80053; 87637; 93005; 96374; 99285; 71046; 83880; 84484; 85025; 93010; 99284; J1940

== ENCOUNTER 2024-04-19 23:35 | Inpatient (IN) | payer BC, SELFPAY ==
[2024-04-19 23:38] VITALS: BP 112/65; PULSE 59; RESP 16; TEMP 36.9; O2SAT 98
[2024-04-19 23:53] VITALS: PULSE 52; PULSE 59; RESP 19; O2SAT 95
[2024-04-20] VITALS (225 sets, daily range): BP systolic 55–146; BP diastolic 16–88; PULSE 41–75; RESP 0–24; TEMP 36.2–36.8; O2SAT 86–100
--- NOTE | 2024-04-20 | RT.EKG_ITS ---
APPROVED REPORT Exam: Resting ECG Reason for Exam: syncope Patient Location: E HR:54 bpm ECG Measurements Heart Rate 54 AXIS [place] 187 P 29 QRSd 94 QRS 57 QT 471 T [id number] QTc 443 Conclusion Sinus bradycardia...rate< 60 Atrial premature complex...SV complex w/ short R-R interval Borderline ST depression, diffuse leads...ST <-0.07mV, ant/lat/inf Physician: unchanged from prior ekg
--- NOTE | 2024-04-20 00:10 | W.ED.GENAD ---
Discharge Plan Disposition Patient Disposition: Admit to [facility] Condition: Good Discharge Details Chief Complaint: Nausea/Vomit/Diar Clinical Impression: Influenza A, Elevated troponin, Sinusitis Admit Date/Time: 04/20/24 04:10 Admit Provider: Nalini Domínguez Attending Provider: Nalini Domínguez Primary Care Provider: Polo Pearce ED Provider: Aaron Brown Home Meds and New Rx's Prescriptions: No Action ropinirole 1 mg tablet 1 mg PO BID Rx Instructions: @ 1600 and 2100 potassium chloride 20 mEq tablet,ER particles/crystals 40 meq PO BID atorvastatin 80 mg tablet 40 mg PO QPM Wegovy 0.5 mg/0.5 mL pen injector 0.5 mg subcut QWEEK Rx Instructions: administer weeks 5 through 8 of therapy Ubrelvy 50 mg tablet 50 mg PO ONCE Rx Instructions: as a single dose; may repeat once in >=2 hours after first dose if needed topiramate [Topamax] 100 mg tablet 100 mg PO QHS Qty: 90 3RF Aimovig Autoinjector 140 mg/mL auto-injector 140 mg subcut QMONTH Qty: 1 11RF fluticasone propionate [Flonase Allergy Relief] 9.9 ML spray,suspension 2 spray NS DAILY duloxetine [Cymbalta] 60 mg capsule,delayed release(DR/EC) 60 mg PO DAILY Qty: 30 2RF albuterol sulfate 90 mcg/actuation HFA aerosol inhaler 2 puff inhalation Q4H PRN loratadine [Allergy Relief (loratadine)] 10 mg tablet 10 mg PO DAILY PRN nitroglycerin 0.4 mg tablet, sublingual 0.4 mg sublingual Q5M PRN Rx Instructions: do not exceed 3 doses per episode clobetasol 0.05 % ointment 1 applic topical DIRECTED omeprazole 20 mg capsule,delayed release(DR/EC) 20 mg PO DAILY apixaban 5 mg tablet 5 mg PO BID Jardiance 10 mg tablet 10 mg PO DAILY ranolazine 1,000 mg tablet extended release 12 hr 1,000 mg PO BID montelukast 10 mg tablet 10 mg PO DAILY PRN gabapentin 600 mg tablet 600 mg PO QHS Qty: 90 3RF melatonin 10 mg capsule 10 mg PO HS PRN metoprolol tartrate 25 mg tablet 12.5 mg PO DAILY isosorbide mononitrate 10 mg tablet 5 mg PO ONCE Qty: 90 0RF Rx Instructions: give doses 7 hrs apart torsemide 20 mg Tablet 20 mg PO DAILY Qty: 90 0RF metolazone 2.5 mg tablet 2.5 mg PO PRN PRNQty: 0 0RF promethazine 6.25 mg/5 mL syrup 12.5 mg PO Q6H PRN (Reason: cough) Qty: 120 0RF benzonatate 100 mg capsule 100 mg PO TID PRN (Reason: cough) Qty: 30 0RF HPI General Date/Time Provider Initiated Documentation: 04/19/24 23:43. HPI Narrative: This is a 54-year-old female with past medical history of previous NSTEMI, CKD, reported congestive heart failure but last echo showed an EF of around 60%, bilateral renal artery stenosis, previous pulmonary embolism currently on Eliquis, high cholesterol, reactive airway disease, obstructive sleep apnea, who presents today for evaluation of nausea vomiting and feeling unwell with upper respiratory symptoms and cough. Patient states that for the last 3 weeks she has had mild upper respiratory symptoms of runny nose congestion and cough with productivity. However at around 11 PM tonight she developed sudden nausea and vomiting but no abdominal pain. She got lightheaded during the vomiting episode and nearly passed out and hit her right brow onto the toilet seat. She denies complete syncope though. She then came to the ER for further assessment. She admits to mild headache over the right orbit, she denies any numbness or tingling. No other complaints at this time. Related Data Home Medications ?Medication ?Instructions ?Recorded ?Confirmed fluticasone propionate 50 2 spray NS DAILY 12/23/16 04/19/24 mcg/actuation nasal spray,suspension (Flonase Allergy Relief) ropinirole 1 mg tablet 1 mg PO BID 06/12/20 04/19/24 duloxetine 60 mg capsule,delayed 60 mg PO DAILY #30 mg 08/19/20 04/19/24 release (Cymbalta) albuterol sulfate 90 mcg/actuation 2 puff inhalation Q4H PRN 05/30/21 04/19/24 aerosol inhaler loratadine 10 mg tablet (Allergy 10 mg PO DAILY PRN 05/30/21 04/19/24 Relief (loratadine)) nitroglycerin 0.4 mg sublingual 0.4 mg sublingual Q5M PRN 09/25/21 04/19/24 tablet clobetasol 0.05 % topical ointment 1 applic topical DIRECTED 08/28/22 04/19/24 omeprazole 20 mg capsule,delayed 20 mg PO DAILY 08/28/22 04/19/24 release melatonin 10 mg capsule 10 mg PO HS PRN 04/16/23 04/19/24 apixaban 5 mg tablet 5 mg PO BID 08/13/23 04/19/24 empagliflozin 10 mg tablet 10 mg PO DAILY 08/13/23 04/19/24 (Jardiance) ranolazine 1,000 mg 1,000 mg PO BID 08/13/23 04/19/24 tablet,extended release,12 hr atorvastatin 80 mg tablet 40 mg PO QPM 09/16/23 04/19/24 montelukast 10 mg tablet 10 mg PO DAILY PRN 09/16/23 04/19/24 potassium chloride 20 mEq 40 meq PO BID 09/16/23 04/19/24 tablet,extended release(part/cryst) metolazone 2.5 mg tablet 2.5 mg PO PRN PRN #0 tabs 09/25/23 04/19/24 torsemide 20 mg tablet 20 mg PO DAILY #90 tabs 09/25/23 04/19/24 metoprolol tartrate 25 mg tablet 12.5 mg PO DAILY 10/05/23 04/19/24 erenumab-aooe 140 mg/mL 140 mg subcut QMONTH #1 mL 01/19/24 04/19/24 subcutaneous auto-injector (Aimovig Autoinjector) semaglutide (weight loss) 0.5 0.5 mg subcut QWEEK 01/19/24 04/19/24 mg/0.5 mL subcutaneous pen injector (Wegovy) topiramate 100 mg tablet (Topamax) 100 mg PO QHS #90 tab-caps 01/19/24 04/19/24 ubrogepant 50 mg tablet (Ubrelvy) 50 mg PO ONCE 01/19/24 04/19/24 isosorbide mononitrate 10 mg tablet 5 mg (1/2 x 10 mg) PO ONCE #90 tabs 01/26/24 04/19/24 gabapentin 600 mg tablet 600 mg PO QHS #90 tabs 03/14/24 04/19/24 benzonatate 100 mg capsule 100 mg PO TID PRN cough #30 caps 04/10/24 04/19/24 promethazine 6.25 mg/5 mL oral 12.5 mg (10 mL) PO Q6H PRN cough 04/10/24 04/19/24 syrup #120 mL Previous Rx's ?Medication ?Instructions ?Recorded duloxetine 60 mg capsule,delayed 60 mg PO DAILY #30 mg 08/19/20 release (Cymbalta) metolazone 2.5 mg tablet 2.5 mg PO PRN PRN #0 tabs 09/25/23 torsemide 20 mg tablet 20 mg PO DAILY #90 tabs 09/25/23 erenumab-aooe 140 mg/mL 140 mg subcut QMONTH #1 mL 01/19/24 subcutaneous auto-injector (Aimovig Autoinjector) topiramate 100 mg tablet (Topamax) 100 mg PO QHS #90 tab-caps 01/19/24 isosorbide mononitrate 10 mg tablet 5 mg (1/2 x 10 mg) PO ONCE #90 tabs 01/26/24 gabapentin 600 mg tablet 600 mg PO QHS #90 tabs 03/14/24 benzonatate 100 mg capsule 100 mg PO TID PRN cough #30 caps 04/10/24 promethazine 6.25 mg/5 mL oral 12.5 mg (10 mL) PO Q6H PRN cough 04/10/24 syrup #120 mL Allergies Allergy/AdvReac Type Severity Reaction Status Date / Time clobetasol AdvReac Intermediate Skin Rash Verified 04/10/24 16:48 codeine AdvReac Mild Not able Verified 04/10/24 16:48 to sleep ibuprofen AdvReac migraines Unverified 04/10/24 16:48 environmental Allergy Mild sneezing/triggers Uncoded 04/10/24 16:48 her asthma General Stated Complaint: Nausea/Vomit/Diar MIKAELA: 3 Exam Narrative Exam Narrative: 1.Const: Well-nourished, Well-developed, appearing stated age 2.Eyes: PERRL, no conjunctival injection, and symmetrical lids. 3.ENT: Atraumatic external nose and ears. Moist MM. Neck: Symmetric, trachea midline, No thyromegaly. Mild bruise over the right orbit. There is no evidence of raccoon eyes, zayas sign, CSF rhinorrhea, mastoid tenderness, cranial crepitus, hemotympanum, exophthalmos, or hyphema. Patient demonstrates intact dentition with no signs of tooth avulsion or fracture, no signs of jaw deformity, no evidence of a LeFort's fracture, with an intact palate, nose and orbital region. There is no evidence of a nasal septal hematoma. No proptosis. Jaw closes symmetrically. Airway is clear. 4.CVS: +S1/S2, Peripheral pulses 2+ and equal in all extremities. Brisk capillary refill in all extremities. 5.RESP: Rhonchorous breath sounds throughout. Scattered crackles. 6.GI: Soft, Nontender/Nondistended, No hepatosplenomegaly. No guarding or rebound. 7.MSK: Normocephalic/Atraumatic, Extremities w/o deformity or ttp No cyanosis or clubbing, Normal movement of all extremities 8.Skin: Warm, Dry. No rashes or lesions. 9.Neuro: choir accompanist II-XII grossly intact. Sensation grossly intact, no focal neurologic deficits. 10.Psych: (AAO) x3. Appropriate mood and affect Course Vital Signs Vital signs: Vital Signs Temperature 36.9 C 04/19/24 23:38 Pulse 59 L 04/19/24 23:38 Respiratory Rate 16 04/19/24 23:38 Blood Pressure 112/65 04/19/24 23:38 Pulse Oximetry 98 04/19/24 23:38 Temperature 36.9 C 04/19/24 23:38 Pulse 59 L 04/19/24 23:38 Respiratory Rate 16 04/19/24 23:38 Blood Pressure 112/65 04/19/24 23:38 Blood Pressure Position Sitting 04/19/24 23:38 Pulse Oximetry 98 04/19/24 23:38 Oxygen Delivery Method Room Air 04/19/24 23:38 Oxygen Flow Rate 0 04/19/24 23:38 Pain Level 0 04/19/24 23:38 Medical Decision Making This is a 54-year-old female with past medical history of previous NSTEMI, CKD, reported congestive heart failure but last echo showed an EF of around 60%, bilateral renal artery stenosis, previous pulmonary embolism currently on Eliquis, high cholesterol, reactive airway disease, obstructive sleep apnea, who presents today for evaluation of nausea vomiting and feeling unwell with upper respiratory symptoms and cough. Patient states that for the last 3 weeks she has had mild upper respiratory symptoms of runny nose congestion and cough with productivity. However at around 11 PM tonight she developed sudden nausea and vomiting but no abdominal pain. She got lightheaded during the vomiting episode and nearly passed out and hit her right brow onto the toilet seat. She denies complete syncope though. She then came to the ER for further assessment. She admits to mild headache over the right orbit, she denies any numbness or tingling. No other complaints at this time. Exam demonstrates a mild bruise over the right orbit, no other concerning traumatic red flags on exam. No neurologic deficits. Lungs are notably junky sounding, high suspicion for pneumonia. PE unlikely with her Eliquis use. Symptoms do not appear consistent with CHF as she has no pitting edema in the lower extremities , excessive JVD, or other signs of overt heart failure. Differential also includes viral etiology like flu and COVID, we will check for these concerning etiologies, monitor closely and reassess. 4:50 AM Laboratory workup demonstrates influenza positive, no white count bandemia or left shift. Chest x-ray negative for pneumonia. Patient does have evidence of sinusitis, and I did administer a dose of Augmentin for this, they feel that this may be contributory for her notable persistent cough with a postnasal drip. Additionally we did give the first dose of Tamiflu as she is influenza positive. Laboratory workup demonstrates stable VBG, proBNP 1300, TSH high but free T4 is normal. Initial troponin was 490, however patient normally has troponins in the 200s to 300s. We did reach out to [facility] cardiology and discussed the case with them. They do not recommend any additional anticoagulants or antiplatelets at this time, they do suspect based on the EKG that this is not a type II NSTEMI or demand based. The ST depressions are unchanged from prior EKGs. And they look identical to her prior EKGs from [facility] as well. They recommend continued trending of the troponins. Potential viral myocarditis component certainly may be a factor as well. Repeat troponin dropped, but 3-hour troponin started to rise again. We will admit the patient for continued troponin trending. Discussed the case with hospitalist Dr. Domínguez. Plan of care and patient FINDINGS: Brain: No intracranial hemorrhage appreciated. No significant focal mass effect or significant midline shift. Basal ganglia calcifications. Cerebral ventricles: No disproportionate ventriculomegaly. Paranasal sinuses: Pansinusitis. Air-fluid levels in the maxillary sinuses. CT scan of the facial bones dictated separately. Mastoid air cells: No mastoid effusion. Bones: See Paranasal sinuses finding. Soft tissues: No acute findings. IMPRESSION: 1. No intracranial sequelae of trauma appreciated. 2. Additional studies dictated separately. FINDINGS: Limitations: Artifact from metallic dental hardware obscures surrounding tissues. Paranasal sinuses: Pansinusitis. Air-fluid levels in the maxillary sinuses. Orbital cavities: Globes intact. Nasal cavity: Nasal septal fracture. Lymph nodes: Bilateral cervical lymph nodes. Bones: No acute fracture. Soft tissues: Right facial soft tissue swelling. IMPRESSION: 1. Nasal septal fracture. 2. Pansinusitis. 3. Additional studies dictated separately. FINDINGS: Limitations: Mild motion artifact. Artifact from metallic dental hardware obscures surrounding tissues. Bones: No acute cervical spine fracture identified. Mild degenerative changes. Reversal of the normal cervical lordosis may reflect positioning or muscle spasm; correlate clinically. Nonacute right clavicular fracture. Lungs: No acute findings. Lymph nodes: Bilateral cervical lymph nodes. Vasculature: Arterial calcifications. Soft tissues: See Bones finding. IMPRESSION: 1. No cervical spine fracture seen. 2. Additional studies dictated separately. Thank you for allowing us to participate in the care of your patient. Dictated and Authenticated by: Pamela Cifuentes MD 04/20/2024 2:00 AM Eastern Time ([place] & [place]) FINDINGS: Lungs: No focal consolidation or other acute appearing pulmonary opacity. Pleural spaces: Unremarkable. No pleural effusion. No pneumothorax. Heart/Mediastinum: No cardiomegaly or pericardial effusion. Bones/joints: Remote mid right clavicle fracture. Soft tissues: Soft tissues are unremarkable as visualized. IMPRESSION: No acute findings. Thank you for allowing us to participate in the care of your patient. Dictated and Authenticated by: Kim Talbot MD 04/20/2024 1:36 AM Eastern Time ([place] & [place]) Quality:SDOH Health Related Social Needs: No Data to Display PFSH All Active Problems (Updated 04/20/24 @ 04:51 by Aaron Brown DO) Sinusitis (Acute) Elevated troponin (Acute) Influenza A (Acute) Acute sinusitis (Acute) CKD stage 3b, GFR 30-44 ml/min (Acute) Influenza A (Acute) Cough (Acute) URI (upper respiratory infection) (Acute) Abdominal pain (Acute) Diarrhea (Acute) Atypical migraine (Acute) Otalgia, right ear (Acute) Acute otitis media of right ear with perforated tympanic membrane (Acute) Non-ST elevation CT (NSTEMI) (Acute) Chronic kidney disease, stage III (moderate) (Acute) Hypermagnesemia (Acute) Acute hypokalemia (Acute) Ground glass opacity present on imaging of lung (Acute) Elevated troponin (Acute) CATIE (acute kidney injury) (Acute) Restrictive lung disease secondary to obesity (Acute) Allergic asthma (Acute) intermittent, controlled Dyspnea (Acute) Diarrhea (Acute) Congestive heart failure (Chronic) Sick euthyroidism (Acute) Carpal tunnel syndrome (Acute) GERD (gastroesophageal reflux disease) (Chronic) Bilateral renal artery stenosis (Acute) Encounter for weight loss counseling (Acute) Pulmonary emboli (Chronic) Arthritis of carpometacarpal (CMC) joint of left thumb (Acute) Avulsion fracture of right talus (Acute 12/30/21) Bilateral carpal tunnel syndrome (Acute) Paresthesia of hand, bilateral (Acute) Abnormal chest CT (Acute) Pulmonary hypertension (Acute) Atypical chest pain (Acute) PSVT (paroxysmal supraventricular tachycardia) (Acute) Acute non-ST elevation myocardial infarction (NSTEMI) (Acute) Elevated troponin I level (Acute) Right upper quadrant abdominal pain (Acute) Chronic heart failure with preserved ejection fraction (Chronic) Restless legs syndrome (Acute) Rhinitis, nonallergic, chronic (Acute) Tendinitis (Acute) Chest pain (Acute) Migraine headache without aura (Acute) Lichen sclerosus (Acute) MARYLOU (obstructive sleep apnea) (Chronic) Migraine with aura and without status migrainosus, not intractable (Acute 02/24/16) Medical History Myocardial infarction 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 Mild intermittent asthma Atherosclerosis of renal artery Heart failure Supraventricular tachycardia Atrial fibrillation Superior mesenteric artery stenosis (~03/10/22) see CTA abdomen and pelivs: 80% narrowing of SMA origin Renal artery stenosis (~03/10/22) right renal artery stenosis per CTA abomen/pelvis Hx of supraventricular tachycardia Infiltrate of lower lobe of left lung present on imaging study Acute non-ST elevation myocardial infarction (NSTEMI) COVID-19 Left lateral epicondylitis Arthritis of carpometacarpal (CMC) joint of left thumb Left wrist pain CHI (closed head injury) Acute bronchitis Non-ST elevation CT (NSTEMI) Insomnia Asthma Migraine Overweight Endometriosis Depression Surgical History History of radiofrequency ablation (RFA) procedure for cardiac arrhythmia Hx of tubal ligation History of partial hysterectomy Family History Daughter Migraines Mother Hypertension Father Heart disease Social History Smoking/Tobacco Use Status: Never Smoking risk assessment performed?: Yes Alcohol Intake: never Drug use: Never Substance use type: does not use Housing: house Current gender identity: female Do you feel safe at home: Yes Do you feel safe in your relationship?: Yes Female Reproductive History Menstrual Menopause type: surgical History History 2 Para 2 Hx # Term Pregnancies Multiple births Hx # Pregnancies Ectopic pregnancies AB induced Hx Number of Living Children AB spontaneous
[2024-04-20 00:31] LABS: BE (Venous) -4 mmol/L (-2-3); HCO3 (Venous) 22 mmol/L (23-28); O2 Sat (Venous) 63 %; TCO2 (Venous) 20 mmol/L (24-29); pCO2 (Venous) 41 mmHg (41-51); pH (Venous) 7.34 (7.31-7.41); pO2 (Venous) 35 mmHg
[2024-04-20 00:32] LABS: COVID-19 PCR Negative (Negative); Influenza A PCR Positive (Negative); Influenza B PCR Negative (Negative); RSV PCR Negative (Negative)
[2024-04-20 00:33] LABS: Abs Immature Grans 0.03 10^3/uL (0.0-0.06); Absolute Basophil Count 0.02 10^3/uL (0.0-0.2); Absolute Eosinophil Count 0.08 10^3/uL (0.0-0.7); Absolute Lymphocyte Count 1.57 10^3/uL (1.2-3.4); Absolute Monocyte Count 0.59 10^3/uL (0.1-0.8); Absolute Neutrophil Count 3.86 10^3/uL (1.2-6.7); Basophils % 0.3 %; Eosinophils % 1.3 %; HCT 46.7 % (36.0-46.0); HGB 15.2 g/dL (11.2-15.7); Immature Grans % 0.5 %; Lymphocytes % 25.5 %; MCH 32.1 pg (27.0-33.0); MCHC 32.5 % (32.0-36.0); MCV 99 fL (80-95); MPV 10.4 fL (8.0-11.0); Monocytes % 9.6 %; Neutrophils % 62.8 %; Platelet Count 207 10^3/uL (130-400); RBC 4.74 10^6/uL (3.93-5.22); RDW 11.9 % (11.7-14.6); RDW-SD 43.6 fL; WBC 6.15 10^3/uL (4.4-10.8)
[2024-04-20 00:33] LABS: Source Nasopharynx
[2024-04-20] MEDS: Ondansetron 4 MG/2 ML VIAL IVP ×2 (00:34→18:58)
[2024-04-20] MEDS: Normal Saline 500 ML IV (00:34)
[2024-04-20 00:57] LABS: INR 1.2 (0.9-1.1); PTT Activated 30.3 sec (20.6-30.2); Prothrombin Time 11.6 sec (9.1-11.1)
[2024-04-20 01:04] LABS: ALT 37 U/L (14-59); AST 43 U/L (15-37); Albumin 3.4 g/dL (3.4-5.0); Alkaline Phosphatase 47 U/L (46-116); Anion Gap 10.1 mmol/L (3-11); BUN 18 mg/dL (7-18); Bilirubin, Total 0.44 mg/dL (0.2-1.0); CO2 23.9 mmol/L (21.0-32.0); CREATININE 1.4 mg/dL (0.55-1.02); Chloride 106 mmol/L (98-107); Estimated GFR 44.43 (mL/min/1.73m2); Glucose 103 mg/dL (74-106); Lipase 79 U/L (<78); NT-proBNP 1361 pg/mL (<300); Potassium 4.1 mmol/L (3.5-5.1); Sodium 140 mmol/L (136-145); TSH (W/Ref FT4) 10.87 uIU/mL (0.36-3.74)
[2024-04-20 01:05] LABS: Troponin I 491 ng/L (<or=51)
[2024-04-20 01:22] LABS: FREE T4 0.81 ng/dL (0.76-1.46)
--- NOTE | 2024-04-20 01:24 | DI.CT_ITS ---
Exam(s) CT HEAD CERV SPINE FACIAL WO EXAM: CT HEAD CERV SPINE FACIAL WO CLINICAL HISTORY: fell, hit lright orbit, on thinners, eval for blee. TECHNIQUE: Imaging Protocol: Axial computed tomography images with coronal and sagittal reformatted images were created and reviewed COMPARISON: CT CT HEAD WO from 09/20/2023 FINDINGS: CT BRAIN: There are no skull fractures. There is fluid in both maxillary sinuses as well as throughout ethmoidal air cells bilaterally and th ere is a tiny amount of fluid in the frontal sinuses. There is also mucosal thickening and some flui d in the sphenoid sinuses. There are no mastoid effusions. There is no evidence of intracranial hemorrhage, mass effect, or shift of midline structures. There are no extra-axial fluid collections. The ventricles are not enlarged or shifted and there is no blo od within the ventricular system nor within the basal cisterns. CT MAXILLOFACIAL BONES: No evidence of orbital fractures. Orbital globes and retro conal compartments appear unremarkable. There appears to be a subtle fracture in the inferior aspect of the nasal septum. Nasal septum is de viated towards the left No other facial fractures but there is fluid and mucosal thickening noted in the paranasal sinuses in volving both maxillary sinuses, all the ethmoidal air cells and some fluid also also seen in the sphe noid sinuses CT CERVICAL SPINE: There is no evidence of fracture nor listhesis. Mild reversal of the normal curvature noted which is either due to muscle spasm or positioning. No significant prevertebral soft tissue swelling. Mild disc space narrowing noted at C4-5 and C5-6 levels. Facet joints appear unremarkable. No facet malalignment evident. No significant osseous lesions evident. IMPRESSION: No acute intracranial findings on this noninfused CT scan of the brain. Subtle nasal septal fracture. Pansinusitis. No evidence of cervical spine fracture, malalignment, nor acute compromise of the cervical spinal can al. RADIATION DOSE DELIVERED: 1,682.29mGy.cm Total DLP DATA REPOSITORY: All CT scans at this facility are submitted to the National Radiology Data Registry (NRDR) Dose Index Registry (DIR) with the [employer] ([employer]). RADIATION OPTIMIZATION: All CT scans at this facility use at least one of these dose optimization te chniques: automated exposure control; mA and/or kV adjustment per patient size (includes targeted exa ms where dose is matched to clinical indication); or iterative reconstruction.
--- NOTE | 2024-04-20 01:25 | DI.RAD_ITS ---
Exam(s) XR CHEST 1V IN DI DEPT EXAM: XR CHEST 1V IN DI DEPT CLINICAL HISTORY: cough, eval for pneumonia. TECHNIQUE: 2D digital imaging was performed. COMPARISON: No exams were available for comparison FINDINGS: Single AP portable view. Heart size is upper normal. The mediastinum is not widened. Lungs are clear. No infiltrates nor obvious pleural effusions. IMPRESSION: No acute pulmonary findings on this single AP portable view of the chest. DATA REPOSITORY: RADIATION DOSE DELIVERED:
--- NOTE | 2024-04-20 01:37 | DI.VRAD_ITS ---
PROCEDURE INFORMATION: Exam: XR Chest Exam date and time: 04/20/2024 1:15 AM Age: 54 years old Clinical indication: Cough, eval for pneumonia TECHNIQUE: Imaging protocol: Radiologic exam of the chest. Views: 1 view. COMPARISON: CR XR CHEST 2V PA LATERAL 04/10/2024 7:06 PM FINDINGS: Lungs: No focal consolidation or other acute appearing pulmonary opacity. Pleural spaces: Unremarkable. No pleural effusion. No pneumothorax. Heart/Mediastinum: No cardiomegaly or pericardial effusion. Bones/joints: Remote mid right clavicle fracture. Soft tissues: Soft tissues are unremarkable as visualized. IMPRESSION: No acute findings. Dictated and Authenticated by: Kim Talbot MD. Orderin Stephanie Walker MD
--- NOTE | 2024-04-20 02:00 | DI.VRAD_ITS ---
PROCEDURE INFORMATION: Exam: CT Head Without Contrast Exam date and time: 04/20/2024 1:06 AM Age: 54 years old Clinical indication: Injury or trauma; Blunt trauma (contusions or hematomas); Consciousness not specified; Orbit/periorbital; Injury date: 04/19/24; Fall, hit right orbit, on thinners, eval for bleed TECHNIQUE: Imaging protocol: Computed tomography of the head without contrast. Radiation optimization: All CT scans at this facility use at least one of these dose optimization techniques: automated exposure control; mA and/or kV adjustment per patient size (includes targeted exams where dose is matched to clinical indication); or iterative reconstruction. COMPARISON: CT HEAD WO 09/20/2023 3:13 PM FINDINGS: Brain: No intracranial hemorrhage appreciated. No significant focal mass effect or significant midline shift. Basal ganglia calcifications. Cerebral ventricles: No disproportionate ventriculomegaly. Paranasal sinuses: Pansinusitis. Air-fluid levels in the maxillary sinuses. CT scan of the facial bones dictated separately. Mastoid air cells: No mastoid effusion. Bones: See Paranasal sinuses finding. Soft tissues: No acute findings. IMPRESSION: 1. No intracranial sequelae of trauma appreciated. 2. Additional studies dictated separately. PROCEDURE INFORMATION: Exam: CT Maxillofacial Without Contrast Exam date and time: 04/20/2024 1:06 AM Age: 54 years old Clinical indication: Injury or trauma; Blunt trauma (contusions or hematomas); Consciousness not specified; Orbit/periorbital; Injury date: 04/19/24; Fall, hit right orbit, on thinners, eval for bleed TECHNIQUE: Imaging protocol: Computed tomography of the face without contrast. Radiation optimization: All CT scans at this facility use at least one of these dose optimization techniques: automated exposure control; mA and/or kV adjustment per patient size (includes targeted exams where dose is matched to clinical indication); or iterative reconstruction. COMPARISON: No relevant prior studies are available for comparison. FINDINGS: Limitations: Artifact from metallic dental hardware obscures surrounding tissues. Paranasal sinuses: Pansinusitis. Air-fluid levels in the maxillary sinuses. Orbital cavities: Globes intact. Nasal cavity: Nasal septal fracture. Lymph nodes: Bilateral cervical lymph nodes. Bones: No acute fracture. Soft tissues: Right facial soft tissue swelling. IMPRESSION: 1. Nasal septal fracture. 2. Pansinusitis. 3. Additional studies dictated separately. PROCEDURE INFORMATION: Exam: CT Cervical Spine Without Contrast Exam date and time: 04/20/2024 1:06 AM Age: 54 years old Clinical indication: Injury or trauma; Blunt trauma (contusions or hematomas); Consciousness not specified; Orbit/periorbital; Injury date: 04/19/24; Fall, hit right orbit, on thinners, eval for bleed TECHNIQUE: Imaging protocol: Computed tomography of the cervical spine without contrast. Radiation optimization: All CT scans at this facility use at least one of these dose optimization techniques: automated exposure control; mA and/or kV adjustment per patient size (includes targeted exams where dose is matched to clinical indication); or iterative reconstruction. COMPARISON: CT BRAIN NECK CTA 07/29/2022 8:50 PM FINDINGS: Limitations: Mild motion artifact. Artifact from metallic dental hardware obscures surrounding tissues. Bones: No acute cervical spine fracture identified. Mild degenerative changes. Reversal of the normal cervical lordosis may reflect positioning or muscle spasm; correlate clinically. Nonacute right clavicular fracture. Lungs: No acute findings. Lymph nodes: Bilateral cervical lymph nodes. Vasculature: Arterial calcifications. Soft tissues: See Bones finding. IMPRESSION: 1. No cervical spine fracture seen. 2. Additional studies dictated separately. Dictated and Authenticated by: Pamela Cifuentes MD. Orderin Stephanie Walker MD
[2024-04-20 02:12] LABS: Troponin I 440 ng/L (<or=51)
[2024-04-20] MEDS: Normal Saline 1,000 ML 150 ML IV (02:36)
[2024-04-20] MEDS: Amoxicillin 875/Clav. 125 TAB PO ×2 (02:36→16:59)
[2024-04-20 03:55] LABS: Troponin I 468 ng/L (<or=51)
--- NOTE | 2024-04-20 04:15 | W.PM.HP.N ---
Date of service: 04/20/24 Time of Service: 04:15 Assessment and Plan Assessment and plan (1) Influenza A: Status: Acute Assessment and plan: Will continue with Tamiflu 75 mg p.o. twice daily. Continue with supportive care. Patient's chest x-ray does not demonstrate any evidence of infiltrate to suggest superimposed bacterial pneumonia. Will provide IV hydration with LR at 100 mL/hour. Patient is currently stable on room air. Will provide Tylenol and Polaris as needed for pain (2) Acute sinusitis: Status: Acute Assessment and plan: Continue Augmentin 875 mg twice daily. Will provide Tylenol and Polaris as needed for pain (3) Elevated troponin: Status: Acute Assessment and plan: Suspect type II NSTEMI secondary to ischemic demand in the setting of her influenza A and likely dehydration. Patient's troponin emergency department has been fluctuating but relatively stable without progressive or steady increase. Repeat troponin is pending. Patient denies chest pain. Will hold on heparin drip at this point and continue patient's Eliquis. Continue to monitor on telemetry. Will plan for echocardiogram consider cardiology consultation in the morning. Continue statin, metoprolol, Ranexa. (4) Pulmonary emboli: Status: Chronic Assessment and plan: Patient with history of pulmonary embolus. Continue Eliquis. (5) Sick euthyroidism: Status: Acute Assessment and plan: Patient's TSH is elevated with normal free T4. Suspect euthyroid sick syndrome. (6) GERD (gastroesophageal reflux disease): Status: Chronic Assessment and plan: Continue omeprazole (7) MARYLOU (obstructive sleep apnea): Status: Chronic Assessment and plan: Patient will use CPAP during her hospitalization (8) Chronic heart failure with preserved ejection fraction: Status: Chronic Assessment and plan: No evidence to suggest decompensated heart failure. Patient does not appear to be volume overloaded. Given her nausea, vomiting and diarrhea we will hold her torsemide for now as well as her metolazone. Continue metoprolol and empagliflozin. Plan to obtain echocardiogram this morning. Continue to monitor on telemetry (9) CKD stage 3b, GFR 30-44 ml/min: Status: Acute Assessment and plan: Patient's creatinine is near her baseline of 1.4. Will renally dose all medications and avoid nephrotoxins. History of Present Illness History of Present Illness Chief Complaint: Nausea, vomiting, lightheadedness Narrative: Patient is a 54-year-old female past medical history significant for previous NSTEMI status post cardiac catheterization in 2023 with nonobstructive disease with PET scan showing anterior wall scar, reactive airway disease, heart failure with preserved EF with her most recent echocardiogram demonstrated ejection fraction of 60%, history of pulmonary embolism on chronic anticoagulation with Eliquis, MARYLOU on CPAP, history of SMA stent and bilateral renal artery stenosis who presents to the emergency department today with complaints of 2 weeks of rhinitis and cough sputum production with the onset of nausea and emesis yesterday. Patient notes that she has had some upper respiratory symptoms for the last 2 weeks including a runny nose and cough productive sputum. Yesterday she developed the onset of nausea with vomiting without hematemesis or coffee-ground emesis as well as diarrhea which she describes as loose and watery stools. She denies chest pressure, chest pain but does report diffuse arthralgias and myalgias as well as a severe headache without a sore throat. She denies dyspnea. She does report lightheadedness and dizziness while vomiting last night. Due to his lightheadedness and dizziness she fell forward and struck her head on the toilet seat but did not lose consciousness or have true syncope. In the emergency department, the patient was afebrile and hemodynamically stable, without hypoxia but did have some mild bradycardia with heart rates in the 50s. Her CBC was unremarkable, her CMP demonstrated slight elevation of her AST to 43 with stable chronic kidney disease and creatinine of 1.4. Initial troponin was elevated to 491 with repeat trending down to 440 and subsequent repeat after that stabilizing at 468. Her BNP was mildly elevated at 1300, which has been fairly chronic for her. Her lipase was not significantly elevated and her TSH was elevated at 10 with a free T4 of 0.8. Her influenza A PCR was positive but her COVID and influenza B as well as RSV were negative. Her VBG demonstrated pH 7.34 with pCO2 41. Her EKG which I personally reviewed demonstrates sinus bradycardia with heart rate of 54 with normal intervals, mild ST depression in leads II, III and aVF as well as V3?V6 (less than [address] scan of her head without contrast demonstrated no intracranial sequelae of trauma but did show pansinusitis with air-fluid levels in the maxillary sinuses. Chest x-ray demonstrated no acute findings. Discussion did occur with cardiology at [facility] by Dr. Brown we do not feel that transfer was necessary due to her elevated troponin. Given her persistently elevated troponin the hospitalist service was asked for admission to continue to monitor obtain echocardiogram. Patient did receive Tamiflu and Augmentin in the emergency department. Review of Systems Narrative: 12 point review of systems was obtained was negative except HPI PFSH All Active Problems (Updated 04/20/24 @ 04:44 by Nalini Domínguez MD) Acute sinusitis (Acute) CKD stage 3b, GFR 30-44 ml/min (Acute) Influenza A (Acute) Cough (Acute) URI (upper respiratory infection) (Acute) Abdominal pain (Acute) Diarrhea (Acute) Atypical migraine (Acute) Otalgia, right ear (Acute) Acute otitis media of right ear with perforated tympanic membrane (Acute) Non-ST elevation CT (NSTEMI) (Acute) Chronic kidney disease, stage III (moderate) (Acute) Hypermagnesemia (Acute) Acute hypokalemia (Acute) Ground glass opacity present on imaging of lung (Acute) Elevated troponin (Acute) CATIE (acute kidney injury) (Acute) Restrictive lung disease secondary to obesity (Acute) Allergic asthma (Acute) intermittent, controlled Dyspnea (Acute) Diarrhea (Acute) Congestive heart failure (Chronic) Sick euthyroidism (Acute) Carpal tunnel syndrome (Acute) GERD (gastroesophageal reflux disease) (Chronic) Bilateral renal artery stenosis (Acute) Encounter for weight loss counseling (Acute) Pulmonary emboli (Chronic) Arthritis of carpometacarpal (CMC) joint of left thumb (Acute) Avulsion fracture of right talus (Acute 12/30/21) Bilateral carpal tunnel syndrome (Acute) Paresthesia of hand, bilateral (Acute) Abnormal chest CT (Acute) Pulmonary hypertension (Acute) Atypical chest pain (Acute) PSVT (paroxysmal supraventricular tachycardia) (Acute) Acute non-ST elevation myocardial infarction (NSTEMI) (Acute) Elevated troponin I level (Acute) Right upper quadrant abdominal pain (Acute) Chronic heart failure with preserved ejection fraction (Chronic) Restless legs syndrome (Acute) Rhinitis, nonallergic, chronic (Acute) Tendinitis (Acute) Chest pain (Acute) Migraine headache without aura (Acute) Lichen sclerosus (Acute) MARYLOU (obstructive sleep apnea) (Chronic) Migraine with aura and without status migrainosus, not intractable (Acute 12/19/16) Medical History Myocardial infarction 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 Mild intermittent asthma Atherosclerosis of renal artery Heart failure Supraventricular tachycardia Atrial fibrillation Superior mesenteric artery stenosis (~03/10/22) see CTA abdomen and pelivs: 80% narrowing of SMA origin Renal artery stenosis (~03/10/22) right renal artery stenosis per CTA abomen/pelvis Hx of supraventricular tachycardia Infiltrate of lower lobe of left lung present on imaging study Acute non-ST elevation myocardial infarction (NSTEMI) COVID-19 Left lateral epicondylitis Arthritis of carpometacarpal (CMC) joint of left thumb Left wrist pain CHI (closed head injury) Acute bronchitis Non-ST elevation CT (NSTEMI) Insomnia Asthma Migraine Overweight Endometriosis Depression Surgical History History of radiofrequency ablation (RFA) procedure for cardiac arrhythmia Hx of tubal ligation History of partial hysterectomy Family History Daughter Migraines Mother Hypertension Father Heart disease Social History Smoking/Tobacco Use Status: Never Smoking risk assessment performed?: Yes Alcohol Intake: never Drug use: Never Substance use type: does not use Housing: house Current gender identity: female Do you feel safe at home: Yes Do you feel safe in your relationship?: Yes Female Reproductive History Menstrual Menopause type: surgical History History 2 Para 2 Hx # Term Pregnancies Multiple births Hx # Pregnancies Ectopic pregnancies AB induced Hx Number of Living Children AB spontaneous Meds Allergies and Home Medications Allergies Allergy/AdvReac Type Severity Reaction Status Date / Time clobetasol AdvReac Intermediate Skin Rash Verified 04/10/24 16:48 codeine AdvReac Mild Not able Verified 04/10/24 16:48 to sleep ibuprofen AdvReac migraines Unverified 04/10/24 16:48 environmental Allergy Mild sneezing/triggers Uncoded 04/10/24 16:48 her asthma Home Medications ?Medication ?Instructions ?Recorded ?Confirmed ?Type fluticasone propionate 50 2 spray NS DAILY 12/23/16 04/19/24 History mcg/actuation nasal spray,suspension (Flonase Allergy Relief) ropinirole 1 mg tablet 1 mg PO BID 06/12/20 04/19/24 History duloxetine 60 mg capsule,delayed 60 mg PO DAILY #30 mg 08/19/20 04/19/24 Rx release (Cymbalta) albuterol sulfate 90 mcg/actuation 2 puff inhalation Q4H PRN 05/30/21 04/19/24 History aerosol inhaler loratadine 10 mg tablet (Allergy 10 mg PO DAILY PRN 05/30/21 04/19/24 History Relief (loratadine)) nitroglycerin 0.4 mg sublingual 0.4 mg sublingual Q5M PRN 09/25/21 04/19/24 History tablet clobetasol 0.05 % topical ointment 1 applic topical DIRECTED 08/28/22 04/19/24 History omeprazole 20 mg capsule,delayed 20 mg PO DAILY 08/28/22 04/19/24 History release melatonin 10 mg capsule 10 mg PO HS PRN 04/16/23 04/19/24 History apixaban 5 mg tablet 5 mg PO BID 08/13/23 04/19/24 History empagliflozin 10 mg tablet 10 mg PO DAILY 08/13/23 04/19/24 History (Jardiance) ranolazine 1,000 mg 1,000 mg PO BID 08/13/23 04/19/24 History tablet,extended release,12 hr atorvastatin 80 mg tablet 40 mg PO QPM 09/16/23 04/19/24 History montelukast 10 mg tablet 10 mg PO DAILY PRN 09/16/23 04/19/24 History potassium chloride 20 mEq 40 meq PO BID 09/16/23 04/19/24 History tablet,extended release(part/cryst) metolazone 2.5 mg tablet 2.5 mg PO PRN PRN #0 tabs 09/25/23 04/19/24 Rx torsemide 20 mg tablet 20 mg PO DAILY #90 tabs 09/25/23 04/19/24 Rx metoprolol tartrate 25 mg tablet 12.5 mg PO DAILY 10/05/23 04/19/24 History erenumab-aooe 140 mg/mL 140 mg subcut QMONTH #1 mL 01/19/24 04/19/24 Rx subcutaneous auto-injector (Aimovig Autoinjector) semaglutide (weight loss) 0.5 0.5 mg subcut QWEEK 01/19/24 04/19/24 History mg/0.5 mL subcutaneous pen injector (Wegovy) topiramate 100 mg tablet (Topamax) 100 mg PO QHS #90 tab-caps 01/19/24 04/19/24 Rx ubrogepant 50 mg tablet (Ubrelvy) 50 mg PO ONCE 01/19/24 04/19/24 History isosorbide mononitrate 10 mg tablet 5 mg (1/2 x 10 mg) PO ONCE #90 tabs 01/26/24 04/19/24 Rx gabapentin 600 mg tablet 600 mg PO QHS #90 tabs 03/14/24 04/19/24 Rx benzonatate 100 mg capsule 100 mg PO TID PRN cough #30 caps 04/10/24 04/19/24 Rx promethazine 6.25 mg/5 mL oral 12.5 mg (10 mL) PO Q6H PRN cough 04/10/24 04/19/24 Rx syrup #120 mL Exam Narrative Exam Narrative: Gen: Pleasant 54-year-old female resting in no acute distress HEENT: AT/NC. PERRL. No scleral icterus. Mucous membranes moist Neck: Supple. Full ROM. No JVD, thyromegaly or lymphadenopathy. CVS: RRR with normal S1/S2. No M/G/R Lungs: Clear to auscultation bilaterally without R/R/W Abdomen: S/NT/ND. No guarding or rebound. No masses Extremities: Warm and well perfused. No C/C/E. Pulses 2/4 in DP/TP Neuro: Alert and oriented x 3. CN 3-12 intact. Normal strength and sensation throughout. Speech is fluent Psych: Appropriate and cooperative Skin: intact without rashes or lesions Results Imaging Additional studies: EKG personally reviewed by me and as described above in HPI Imaging Studies: Chest x-ray personally viewed by me and as described above in HPI Labs 04/20/24 00:24 04/20/24 00:24 Labs: Laboratory Results - last 24 hr 04/19/24 04/20/24 04/20/24 23:44 00:24 00:40 WBC 6.15 RBC 4.74 Hgb 15.2 Hct 46.7 H MCV 99 H MCH 32.1 MCHC 32.5 RDW 11.9 Plt Count 207 MPV 10.4 Immature Gran % 0.5 Neutrophils % 62.8 Lymphocytes % 25.5 Monocytes % 9.6 Eosinophils % 1.3 Basophils % 0.3 Nucleated RBC % 0.0 Absolute Neutrophils 3.86 Absolute Lymphocytes 1.57 Absolute Monocytes 0.59 Absolute Eosinophils 0.08 Absolute Basophils 0.02 PT 11.6 H INR 1.2 H APTT 30.3 H VBG pH 7.34 VBG pCO2 41 VBG pO2 35 VBG HCO3 22 L VBG Total CO2 20 L VBG O2 Saturation 63 VBG Base Excess -4 L Sodium 140 Potassium 4.1 Chloride 106 Carbon Dioxide 23.9 Anion Gap 10.1 BUN 18 Creatinine 1.4 H Est GFR (CKD-EPI 2020) 44.43 Glucose 103 Calcium 9.0 Total Bilirubin 0.44 AST 43 H ALT 37 Alkaline Phosphatase 47 Troponin I 491 H* NT-Pro-B Natriuret Pep 1361 H Total Protein 8.0 Albumin 3.4 Lipase 79 H TSH 10.87 H Free T4 0.81 COVID-19 Source Nasopharynx SARS-CoV-2 (PCR) Negative Influenza Type A (PCR) Positive A Influenza Type B (PCR) Negative RSV (PCR) Negative 04/20/24 04/20/24 01:35 03:30 WBC RBC Hgb Hct MCV MCH MCHC RDW Plt Count MPV Immature Gran % Neutrophils % Lymphocytes % Monocytes % Eosinophils % Basophils % Nucleated RBC % Absolute Neutrophils Absolute Lymphocytes Absolute Monocytes Absolute Eosinophils Absolute Basophils PT INR APTT VBG pH VBG pCO2 VBG pO2 VBG HCO3 VBG Total CO2 VBG O2 Saturation VBG Base Excess Sodium Potassium Chloride Carbon Dioxide Anion Gap BUN Creatinine Est GFR (CKD-EPI 2020) Glucose Calcium Total Bilirubin AST ALT Alkaline Phosphatase Troponin I 440 H* 468 H* NT-Pro-B Natriuret Pep Total Protein Albumin Lipase TSH Free T4 COVID-19 Source SARS-CoV-2 (PCR) Influenza Type A (PCR) Influenza Type B (PCR) RSV (PCR) Last Vital Signs Temp 36.9 C 04/19/24 23:38 Pulse 54 L 04/20/24 02:30 Resp 13 04/20/24 01:30 BP 94/47 L 04/20/24 00:46 Pulse Ox 90 L 04/20/24 02:30 Time Spent Time spent with Patient: 55-74 minutes Time was spent: preparing to see the patient(eg.review tests), obtaining and/or reviewing separately otained hiistory, ordering medications,tests, procedures, referring, communicating with other health healthcare business analyst, indepentently interpreting results, counseling the patient and care coordination
[2024-04-20 06:42] LABS: Troponin I 450 ng/L (<or=51)
--- NOTE | 2024-04-20 08:11 | NUR.NOTE ---
pt with sustained BP in low 90's, MAP below 60, per ED MD give extra 500ml bolus, updated Dr Loving at 0800 to MAP 43, no new orders, pt moved to ED3, plan for new IV, med orders with holding orders being placed, pt remains on precautions for Flu, remains afebrile and HR in 50's, no resp s/s at this time, back and hip pain.
--- NOTE | 2024-04-20 08:15 | RT.EKG_ITS ---
APPROVED REPORT Exam: Resting ECG Reason for Exam: hypotension/chest pain Patient Location: I HR:53 bpm ECG Measurements Heart Rate 53 AXIS DE 190 P 35 QRSd 90 QRS 54 QT 534 T 54 QTc 502 Conclusion Sinus bradycardia...rate< [address] depression, diffuse leads...ST <-0.03mV, ant/lat/inf Long QTc
[2024-04-20] MEDS: DULoxetine 30 MG CAP 60 MG PO (08:59)
[2024-04-20] MEDS: Ranolazine 500 MG TABCR 1000 MG PO ×2 (08:59→19:36)
[2024-04-20] MEDS: Benzonatate 100 MG CAP PO ×2 (08:59→19:41)
[2024-04-20] MEDS: Acetaminophen 325 MG TAB PO (08:59)
[2024-04-20] MEDS: Apixaban 5 MG TAB PO ×2 (08:59→19:37)
[2024-04-20] MEDS: Omeprazole 20 MG CAPCR PO (09:00)
[2024-04-20] MEDS: Empaglifozin 10 MG TAB PO (09:00)
[2024-04-20] MEDS: Fluticasone NASAL SPRAY 16 GM BTL NS (09:00)
[2024-04-20] MEDS: Inhaler, Assist Device 1 EACH MC (09:01)
[2024-04-20] MEDS: Lactated Ringers 1,000 ML 75 ML IV (09:01)
[2024-04-20] MEDS: Norepinephrine in D5W 8 MG/250 ML BAG 13.125 MG IV (10:04)
[2024-04-20 10:43] LABS: Troponin I 419 ng/L (<or=51)
--- NOTE | 2024-04-20 12:30 | DI.US_ITS ---
APPROVED REPORT EXAM: Comprehensive 2D, Doppler, and color-flow Echocardiogram Patient Location: Out-Patient Bench Lathe Operator: Nick Corrigan RDCS (AE) Indications: Elevated troponin Other Information Study Quality: Fair. Technically limited study due to body habitus. Conclusion Normal left ventricular wall thickness and chamber size. Ejection fraction is 60 to 65%. Wall motio n is normal Normal right ventricular size and function Both atria are normal in size There is no structural or hemodynamically significant valvular disease Ascending aorta measures 3.56 cm Wall motion Left Ventricle The left ventricle is normal size. The left ventricular systolic function is normal. The left ventric ular ejection fraction is within the normal range. There is normal left ventricular wall thickness. T here is normal LV segmental wall motion. There is no ventricular septal defect visualized. LVEF is 60 -65%. Right Ventricle The right ventricle is normal size. The right ventricular systolic function is normal. Atria The left atrium size is normal. The right atrium size is normal. The interatrial septum is intact wit h no evidence for an atrial septal defect. Aortic Valve The aortic valve is normal in structure. Aortic valve is trileaflet. There is no aortic valvular sten osis. No aortic regurgitation is present. Mitral Valve The mitral valve is normal in structure. No evidence of mitral valve stenosis. Trace mitral regurgita tion. Tricuspid Valve The tricuspid valve is normal in structure. There is no tricuspid valve stenosis. Trace tricuspid reg urgitation. Unable to assess PA pressure. Pulmonic Valve The pulmonary valve is normal in structure. There is no pulmonic valvular stenosis. Trace pulmonic re gurgitation. Great Vessels The aortic root is normal in size. The ascending aorta is mildly dilated. Aortic arch is not well vis ualized. IVC is normal in size and collapses >50% with inspiration. Pericardium Prominent anterior epicardial fat pad is present. 2D Dimensions IVSD d PLAX 0.93 cm F: 0.6-1.0 Ao Root d 2.31 cm F: 2.7 - 3.3 LVPW d PLAX 0.92 cm F: 0.6 - 1.0 Ao Asc Diam d 3.56 cm F: 2.3 - 3.1 LVID d PLAX 4.42 cm F: 3.8 - 5.2 LVDs 2.93 cm F: 2.2 - 3.5 LV EF Teichholz 62.6 % FS 33.63 % LV EDV (Teich) 88.6 mL LV ESV (Teich) 33.1 mL Stroke Vol Index (Teich) 27.87 Auto EF LV EDV A4C 79.3 mL LV EDV A2C 76.6 mL LV EDV BP LV ESV A4C 32.0 mL LV ESV A2C 30.9 mL LV ESV BP LVEF(%) A4C 59.6 % LVEF(%) A2C 59.7 % LVEF(%) BP LV SV A4C 47.3 ml LV SV A2C 45.7 ml LV SV BP LV CO A4C 2.5 L/min LV CO A2C 3.3 L/min LV CO BP HR A4C 53.26 BPM HR A2C 71.29 BPM LV EDV Index (BP) LA Volume LA Length A4C 5.9 cm LA Length A2C 6.3 cm LA Area A4C s 16.69 cm2 LA Area A2C s 18.88 cm2 LA Vol A4C A-L 40.43 mL LA Vol A2C A-L 47.86 mL LA Vol Biplane A-L 45.7 mL LA Vol/BSA A4C A-L LA Vol/BSA A2C A-L LA Vol/BSA BP A-L 23.0 mL/m2 LA Vol A4C MOD 38.7 mL LA Vol A2C MOD 46.1 mL LA Vol BP MOD 43.1 mL RA Volume RA Area A4C 10.8 cm2 RA ESV A4C (A-L) 20.7mL RA Vol/BSA A4C A-L RA Length A4C 4.8 cm RA ESV A4C (MOD) 19.2mL LV Diastology MV E' medial 0.046 (>0.07 m/s) MV E Vmax 0.55 (0.4-1.3 m/s) MV E/E' MED 11.99 (<14) MV A Vmax 0.35 (0.4-1.3 m/s) MV E' lateral 0.037 (>0.1 m/s) E/A Ratio 1.6 MV E/E' LAT 14.98 (<14) MV E' Average 0.042 m/s MV E/E'(average) 13.32 Aortic Valve AoV Vmax 1.24 m/s LVOT Vmax 1.06 m/s AoV Peak Grad 6.2 mmHg LVOT Peak Grad 4.5 mmHg AoV Area (Vmax) 2.12 cm2 LVOT VTI 0.210 m AoV VTI 0.278 m LVOT Mean Grad 2.3 mmHg AoV Mean Ilir. 0.85 m/s LVOT SV 52.13 mL AoV Mean Grad 3.3 mmHg LVOT Diam s 1.75 cm AoV Area (VTI) 1.88 cm2 AV Regurg Peak Gr. 6.15 mmHg Velocity Ratio 0.85 Mitral Valve MV DT 115 (160-240 msec) Pulmonary Valve PV Vmax 1.13 (0.5-1.5 m/s) RVOT Vmax 1.08 m/s PV Peak Grad 5.1 mmHg RVOT Peak Gr. 4.7 mmHg PV Mean Ilir 0.79 m/s RVOT VTI 0.266 m PV Mean Grad 2.9 mmHg RVOT Mean Gr. 2.8 mmHg
[2024-04-20] MEDS: rOPINIRole 1 MG TAB PO ×2 (16:59→19:37)
[2024-04-20] MEDS: Oseltamivir 30 MG CAP PO (16:59)
--- NOTE | 2024-04-20 18:15 | PDOC.CMIN ---
Date of service: 04/20/24 Time of Service: 18:16 Care Management Initial Assmt Initial Assessment Reason for Hospitalization: Influenza Functional Status/Living Situation Patient Presentation: Mihaela was lying in bed when CM met with her. She stated that she is not feeling well. 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 She lives at home with her , and they have two children and four grandchildren who live nearby. She did not identify any discharge needs. CM will continue to follow. Town of Residence: [place] Resides with: Spouse (Marv) Natural Supports: and two children Employment Status: Employed Instrumental Activities of Daily Living (ADLs): Independent Medications Medication Management: No Issues/Barriers identified Advance Directives Advance Directives: Do you have an Advance Directive: N 09/21/22 09:46 AD On File at [facility]: N 09/21/22 09:46 Date Asked 04/20/24 04/20/24 04:42 AD Date Reviewed COLST On File at [facility] COLST Date Scanned Code Status Resuscitation Status Full Code Insurance Coverage/Financial Issues Insurance: / Care Team Visit Care Team Role Provider Type Leon Loving MD MD [facility] STAFF PHYSICIAN Polo Perace Primary Care Provider NON-[facility] STAFF PHYSICIAN Aaron Brown DO Emergency Provider [facility] STAFF PHYSICIAN Nalini Domínguez MD Admit Provider [facility] ST[facility]FF PHYSICIAN Attending Provider Discharge Potential Discharge Needs: PCP F/U Appt Anticipated Barriers to Discharge: None Identified Patient/Family Education Needs: Review discharge instructions, discuss Ask Me Three Transportation: Private vehicle Plan: Anticipate Indira will return home once medically cleared. She will transport home via private vehicle by family. She will follow up with her PCP and discharge plan of care. CM will continue to follow. Social Determinants of Health Screening Social Determinants of Health last assessed: 04/20/24 Will the Patient Participate in the Screening?: Yes Do you worry about having a steady place to live?: no Problems where you live: no known problems In the past 12 months, have you had to go without electric, gas, oil or water in your home?: no Have you or anyone in your house had to go without enough food to eat?: no Has lack of transportation kept you from medical appointments or from doing things needed for daily living?: no Has anyone in your life made you feel unsafe or unsupported?: no How hard is it for you to pay for the very basics like food, housing, medical care, and heating? Would you say it is:: Not hard at all Do you want help finding or keeping work or a job?: I do not need or want help If for any reason you need help with day-to-day activities such as bathing, preparing meals, shopping, managing finances, etc., do you get the help you need?: I don?t need any help How often do you feel lonely or isolated from those around you?: Never Do you speak a language other than Chinese at home?: No Does the patient want assistance with any of the above?: No PFSH All Active Problems (Updated 04/20/24 @ 04:51 by Aaron Brown DO) Sinusitis (Acute) Elevated troponin (Acute) Influenza A (Acute) Acute sinusitis (Acute) CKD stage 3b, GFR 30-44 ml/min (Acute) Influenza A (Acute) Cough (Acute) URI (upper respiratory infection) (Acute) Abdominal pain (Acute) Diarrhea (Acute) Atypical migraine (Acute) Otalgia, right ear (Acute) Acute otitis media of right ear with perforated tympanic membrane (Acute) Non-ST elevation [place] (NSTEMI) (Acute) Chronic kidney disease, stage III (moderate) (Acute) Hypermagnesemia (Acute) Acute hypokalemia (Acute) Ground glass opacity present on imaging of lung (Acute) Elevated troponin (Acute) CATIE (acute kidney injury) (Acute) Restrictive lung disease secondary to obesity (Acute) Allergic asthma (Acute) intermittent, controlled Dyspnea (Acute) Diarrhea (Acute) Congestive heart failure (Chronic) Sick euthyroidism (Acute) Carpal tunnel syndrome (Acute) GERD (gastroesophageal reflux disease) (Chronic) Bilateral renal artery stenosis (Acute) Encounter for weight loss counseling (Acute) Pulmonary emboli (Chronic) Arthritis of carpometacarpal (CMC) joint of left thumb (Acute) Avulsion fracture of right talus (Acute 12/30/21) Bilateral carpal tunnel syndrome (Acute) Paresthesia of hand, bilateral (Acute) Abnormal chest CT (Acute) Pulmonary hypertension (Acute) Atypical chest pain (Acute) PSVT (paroxysmal supraventricular tachycardia) (Acute) Acute non-ST elevation myocardial infarction (NSTEMI) (Acute) Elevated troponin I level (Acute) Right upper quadrant abdominal pain (Acute) Chronic heart failure with preserved ejection fraction (Chronic) Restless legs syndrome (Acute) Rhinitis, nonallergic, chronic (Acute) Tendinitis (Acute) Chest pain (Acute) Migraine headache without aura (Acute) Lichen sclerosus (Acute) MARYLOU (obstructive sleep apnea) (Chronic) Migraine with aura and without status migrainosus, not intractable (Acute 02/24/16) Medical History Myocardial infarction 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 Mild intermittent asthma Atherosclerosis of renal artery Heart failure Supraventricular tachycardia Atrial fibrillation Superior mesenteric artery stenosis (~03/10/22) see CTA abdomen and pelivs: 80% narrowing of SMA origin Renal artery stenosis (~03/10/22) right renal artery stenosis per CTA abomen/pelvis Hx of supraventricular tachycardia Infiltrate of lower lobe of left lung present on imaging study Acute non-ST elevation myocardial infarction (NSTEMI) COVID-19 Left lateral epicondylitis Arthritis of carpometacarpal (CMC) joint of left thumb Left wrist pain CHI (closed head injury) Acute bronchitis Non-ST elevation WV (NSTEMI) Insomnia Asthma Migraine Overweight Endometriosis Depression Surgical History History of radiofrequency ablation (RFA) procedure for cardiac arrhythmia Hx of tubal ligation History of partial hysterectomy Family History Daughter Migraines Mother Hypertension Father Heart disease Social History Smoking/Tobacco Use Status: Never Smoking risk assessment performed?: Yes Alcohol Intake: never Drug use: Never Substance use type: does not use Housing: house Current gender identity: female Do you feel safe at home: Yes Do you feel safe in your relationship?: Yes Female Reproductive History Menstrual Menopause type: surgical History History 2 Para 2 Hx # Term Pregnancies Multiple births Hx # Pregnancies Ectopic pregnancies AB induced Hx Number of Living Children AB spontaneous
[2024-04-20] MEDS: Normal Saline Flush 10 ML SYR (18:58)
[2024-04-20] MEDS: Lactated Ringers 1,000 ML 500 ML IV (19:36)
[2024-04-20] MEDS: Melatonin 3 MG TAB 9 MG PO (19:36)
[2024-04-20] MEDS: Topiramate 100 MG TAB PO (19:37)
[2024-04-20] MEDS: Gabapentin 600 MG TAB PO (19:37)
[2024-04-20] MEDS: HYDROcodone 5/Acetaminophen 325 TAB PO (20:01)
[2024-04-20] MEDS: Atorvastatin 40 MG TAB PO (20:01)
[2024-04-20 22:42] LABS: Troponin I 518 ng/L (<or=51)
[2024-04-21] VITALS (96 sets, daily range): BP systolic 79–126; BP diastolic 39–82; PULSE 42–82; RESP 10–25; TEMP 36.4; O2SAT 85–99
[2024-04-21 00:03] LABS: D-Dimer 362 ng/mlFEU (<500)
[2024-04-21] MEDS: Norepinephrine in D5W 8 MG/250 ML BAG 11.25 MG IV (05:49)
[2024-04-21] MEDS: Lactated Ringers 1,000 ML 75 ML IV ×2 (05:51→18:30)
[2024-04-21 06:31] LABS: HCT 41.6 % (36.0-46.0); HGB 14.1 g/dL (11.2-15.7); MCH 32.6 pg (27.0-33.0); MCHC 33.9 % (32.0-36.0); MCV 96 fL (80-95); MPV 10.7 fL (8.0-11.0); Platelet Count 217 10^3/uL (130-400); RBC 4.33 10^6/uL (3.93-5.22); RDW 11.8 % (11.7-14.6); WBC 6.75 10^3/uL (4.4-10.8)
[2024-04-21 06:52] LABS: Anion Gap 8.3 mmol/L (3-11); BUN 13 mg/dL (7-18); CO2 23.7 mmol/L (21.0-32.0); CREATININE 1.3 mg/dL (0.55-1.02); Calcium 8.4 mg/dL (8.5-10.1); Chloride 107 mmol/L (98-107); Estimated GFR 48.56 (mL/min/1.73m2); Glucose 114 mg/dL (74-106); Potassium 3.3 mmol/L (3.5-5.1); Sodium 139 mmol/L (136-145)
[2024-04-21 07:02] LABS: Troponin I 533 ng/L (<or=51)
[2024-04-21] MEDS: HYDROcodone 5/Acetaminophen 325 TAB PO ×2 (07:40→15:59)
[2024-04-21] MEDS: Amoxicillin 875/Clav. 125 TAB PO (07:40)
[2024-04-21] MEDS: Ranolazine 500 MG TABCR 1000 MG PO ×2 (07:41→20:15)
[2024-04-21] MEDS: DULoxetine 30 MG CAP 60 MG PO (07:41)
[2024-04-21] MEDS: Apixaban 5 MG TAB PO ×2 (07:41→20:16)
[2024-04-21] MEDS: Omeprazole 20 MG CAPCR PO (07:41)
[2024-04-21] MEDS: Fluticasone NASAL SPRAY 16 GM BTL NS (08:03)
--- NOTE | 2024-04-21 08:43 | PDOC.CMPRO ---
Date of service: 04/21/24 Time of Service: 08:43 Care Management Progress Note Progress Note Text Progress Note Text: Mihaela was awake and lying in bed when CM met with her. She has bruising under her eye caused by a fall, per pt. Pt advises that shes had heart issues for over 4 years and it's just getting worse. She was told she will need to follow up in [place], but nothing is scheduled yet, per pt. Mihaela will need a letter to give to her employer when she is discharged. 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 Discharge Potential Discharge Needs: PCP F/U Appt and Other (Cardiology) Anticipated Barriers to Discharge: Medical Status Patient/Family Education Needs: Review discharge instructions, discuss Ask Me Three Transportation: Private vehicle Plan: Anticipate Indira will return home once medically cleared. She will transport home via private vehicle by family. She will follow up with her PCP and discharge plan of care. CM will continue to follow. Social Determinants of Health Screening Social Determinants of Health last assessed: 04/21/24 Will the Patient Participate in the Screening?: Yes Do you worry about having a steady place to live?: no Problems where you live: no known problems In the past 12 months, have you had to go without electric, gas, oil or water in your home?: no Have you or anyone in your house had to go without enough food to eat?: no Has lack of transportation kept you from medical appointments or from doing things needed for daily living?: no Has anyone in your life made you feel unsafe or unsupported?: no How hard is it for you to pay for the very basics like food, housing, medical care, and heating? Would you say it is:: Not hard at all Do you want help finding or keeping work or a job?: I do not need or want help If for any reason you need help with day-to-day activities such as bathing, preparing meals, shopping, managing finances, etc., do you get the help you need?: I don?t need any help How often do you feel lonely or isolated from those around you?: Never Do you speak a language other than Bhutanese at home?: No Does the patient want assistance with any of the above?: No
--- NOTE | 2024-04-21 08:57 | RESPIRATORY ---
04/21/2024 Pt states that she has a home BIPAP from [facility]/ Provider Sarah but she is unsure of settings and does not have any way to bring it in to hospital. Pt would like to use our [id number] while she is here. Pt does have facial injury, she states she wants to wear it as long as it does not hurt her face. Pt is asthmatic and states she can not have any scents in room.
[2024-04-21] MEDS: Normal Saline Flush 10 ML SYR (09:19)
[2024-04-21] MEDS: Oseltamivir 30 MG CAP PO ×2 (11:58→20:16)
--- NOTE | 2024-04-21 15:47 | PHA.REVIEW2 ---
Pharmacy Admission Review Admission Clinical Review Admission Pharmacy Review: (Updated 04/20/24 @ 04:51 by Aaron Brown DO) Acute sinusitis (Acute) CKD stage 3b, GFR 30-44 ml/min (Acute) Influenza A (Acute) Elevated troponin (Acute) Sick euthyroidism (Acute) clobetasol Adverse Reaction (Intermediate, Verified 04/10/24 16:48) Skin Rash codeine Adverse Reaction (Mild, Verified 04/10/24 16:48) Not able to sleep ibuprofen Adverse Reaction (Unverified 04/10/24 16:48) migraines environmental Allergy (Mild, Uncoded 04/10/24 16:48) sneezing/triggers her asthma Resuscitation Status Full Code Height 5 ft 4 in Weight 93.9 kg Comments Comments/Follow Ups: IV to PO ondansetron? Watch for addition of any QTc prolonging medications. Follow up on home med questions tomorrow if we don't hear back. Pharmacy Admission Review Renal Dosing Renal Dosing: BUN 13 mg/dL (7-18) 04/21/24 05:40 Creatinine 1.3 mg/dL (0.55-1.02) H 04/21/24 05:40 Medications needing adjustments: Reviewed (CrCl 54.32 mL/min, SCr decreased from 1.4) List of meds needing interventions: Tamiflu renally adjusted to 30mg BID Anticoagulation Anticoagulation: Hgb 14.1 g/dL (11.2-15.7) 04/21/24 05:40 Hct 41.6 % (36.0-46.0) 04/21/24 05:40 Plt Count 217 10^3/uL (130-400) 04/21/24 05:40 INR 1.2 (0.9-1.1) H 04/20/24 00:40 Creatinine 1.3 mg/dL (0.55-1.02) H 04/21/24 05:40 DVT Prophylaxis: Reviewed Medications: Apixaban (5mg PO BID) Opiate Usage Evaluate Pain Scale/Pains Meds: Reviewed (hydrocodone/APAP 5/325mg PO q6h PRN - 2 tabs / 24hrs) Scheduled Bowel Reg ordered if on Opiates?: No Relevant Labs Relevant Labs: Sodium 139 mmol/L (136-145) 04/21/24 05:40 Potassium 3.3 mmol/L (3.5-5.1) L 04/21/24 05:40 Chloride 107 mmol/L (98-107) 04/21/24 05:40 Electrolytes, C-Reactive P, ESR: Reviewed (K 3.3 - has order for 20mg mEq PO BID) Cardiac Review Cardiac Review: Troponin I 533 ng/L (<or=51) H* 04/21/24 06:00 NT-Pro-B Natriuret Pep 1361 pg/mL (<300) H 04/20/24 00:24 Blood Pressure 107/56 1056 Blood Pressure 85/52 1051 Blood Pressure 99/46 1031 Blood Pressure 81/68 1002 Blood Pressure 100/52 0932 Blood Pressure 115/68 0901 Blood Pressure 108/54 0831 Blood Pressure 102/82 0801 Blood Pressure 101/60 0747 Blood Pressure 100/52 0701 BP, HR, EF%: Reviewed (HR ranging from high 40s to high 50s, currently on oxygen flow rate 1, troponin increased from 518 yesterday at 2216) List meds needing interventions: Has order for norepinephrine drip currently running at 6mcg/min QTc Review QTc: Reviewed (502 from 04/20/24 - has orders for ranolazine and ondansetron as well as hypokalemia. Provider is aware and is monitoring.) IV to PO Switch IV Medications: Reviewed (ondansetron) Home Meds Home Med List reviewed: Intervened Relevent Home Meds Not ordered & why?: clobetasol ointment, Aimovig (monthly), isosorbide (on hold - bradycardia/hypotension), metolazone (on hold - bradycardia/hypotension), metoprolol (on hold - bradycardia/hypotension), nitroglycerin (PRN), promethazine (PRN), Wegovy (weekly), torsemide (on hold - bradycardia/hypotension) and Ubrelvy (PRN) Called nursing to confirm home dose of omeprazole and isosorbide - dosing on home med list does not match dosing from most recent fills from external fill history. Waiting to hear back. Takes potassium 40mEq BID at home, current order is for 20 mEq BID. Per provider current order of 20 mEq BID should be fine. Current Meds Current Medication Order Review: Intervened Comments: Added IV admission order set Currently is on 2 Comments Comments/Follow Ups: IV to PO ondansetron? Watch for addition of any QTc prolonging medications. Follow up on home med questions tomorrow if we don't hear back.
[2024-04-21] MEDS: rOPINIRole 1 MG TAB PO ×2 (15:59→20:16)
--- NOTE | 2024-04-21 16:33 | W.MEDCONSULT ---
Date of service: 04/21/24 Time of Service: 17:21 REPLACED BY [facility] All Active Problems (Updated 04/21/24 @ 16:38 by Leon Loving MD) Hypotension (Acute) Sinusitis (Acute) Elevated troponin (Acute) Influenza A (Acute) Acute sinusitis (Acute) CKD stage 3b, GFR 30-44 ml/min (Acute) Influenza A (Acute) Cough (Acute) URI (upper respiratory infection) (Acute) Abdominal pain (Acute) Diarrhea (Acute) Atypical migraine (Acute) Otalgia, right ear (Acute) Acute otitis media of right ear with perforated tympanic membrane (Acute) Non-ST elevation [place] (NSTEMI) (Acute) Chronic kidney disease, stage III (moderate) (Acute) Hypermagnesemia (Acute) Acute hypokalemia (Acute) Ground glass opacity present on imaging of lung (Acute) Elevated troponin (Acute) CATIE (acute kidney injury) (Acute) Restrictive lung disease secondary to obesity (Acute) Allergic asthma (Acute) intermittent, controlled Dyspnea (Acute) Diarrhea (Acute) Congestive heart failure (Chronic) Sick euthyroidism (Acute) Carpal tunnel syndrome (Acute) GERD (gastroesophageal reflux disease) (Chronic) Bilateral renal artery stenosis (Acute) Encounter for weight loss counseling (Acute) Pulmonary emboli (Chronic) Arthritis of carpometacarpal (CMC) joint of left thumb (Acute) Avulsion fracture of right talus (Acute 12/30/21) Bilateral carpal tunnel syndrome (Acute) Paresthesia of hand, bilateral (Acute) Abnormal chest CT (Acute) Pulmonary hypertension (Acute) Atypical chest pain (Acute) PSVT (paroxysmal supraventricular tachycardia) (Acute) Acute non-ST elevation myocardial infarction (NSTEMI) (Acute) Elevated troponin I level (Acute) Right upper quadrant abdominal pain (Acute) Chronic heart failure with preserved ejection fraction (Chronic) Restless legs syndrome (Acute) Rhinitis, nonallergic, chronic (Acute) Tendinitis (Acute) Chest pain (Acute) Migraine headache without aura (Acute) Lichen sclerosus (Acute) MARYLOU (obstructive sleep apnea) (Chronic) Migraine with aura and without status migrainosus, not intractable (Acute 02/24/16) Medical History Myocardial infarction 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 Mild intermittent asthma Atherosclerosis of renal artery Heart failure Supraventricular tachycardia Atrial fibrillation Superior mesenteric artery stenosis (~03/10/22) see CTA abdomen and pelivs: 80% narrowing of SMA origin Renal artery stenosis (~03/10/22) right renal artery stenosis per CTA abomen/pelvis Hx of supraventricular tachycardia Infiltrate of lower lobe of left lung present on imaging study Acute non-ST elevation myocardial infarction (NSTEMI) COVID-19 Left lateral epicondylitis Arthritis of carpometacarpal (CMC) joint of left thumb Left wrist pain CHI (closed head injury) Acute bronchitis Non-ST elevation AL (NSTEMI) Insomnia Asthma Migraine Overweight Endometriosis Depression Surgical History History of radiofrequency ablation (RFA) procedure for cardiac arrhythmia Hx of tubal ligation History of partial hysterectomy Family History Daughter Migraines Mother Hypertension Father Heart disease Social History Smoking/Tobacco Use Status: Never Smoking risk assessment performed?: Yes Alcohol Intake: never Drug use: Never Substance use type: does not use Housing: house Current gender identity: female Do you feel safe at home: Yes Do you feel safe in your relationship?: Yes Female Reproductive History Menstrual Menopause type: surgical History History 2 Para 2 Hx # Term Pregnancies Multiple births Hx # Pregnancies Ectopic pregnancies AB induced Hx Number of Living Children AB spontaneous Results Last Vital Signs Temp 36.4 C L 04/21/24 08:00 Pulse 47 L 04/21/24 10:56 Resp 21 04/21/24 10:56 BP 107/56 L 04/21/24 10:56 Pulse Ox 95 04/21/24 13:14 Labs 04/21/24 05:40 04/21/24 05:40 Labs: Laboratory Results - last 24 hr 04/20/24 04/20/24 04/21/24 22:16 23:05 05:40 WBC 6.75 RBC 4.33 Hgb 14.1 Hct 41.6 MCV 96 H MCH 32.6 MCHC 33.9 RDW 11.8 Plt Count 217 MPV 10.7 D-Dimer 362 Sodium 139 Potassium 3.3 L Chloride 107 Carbon Dioxide 23.7 Anion Gap 8.3 BUN 13 Creatinine 1.3 H Est GFR (CKD-EPI 2020) 48.56 Glucose 114 H Calcium 8.4 L Troponin I 518 H* 04/21/24 06:00 WBC RBC Hgb Hct MCV MCH MCHC RDW Plt Count MPV D-Dimer Sodium Potassium Chloride Carbon Dioxide Anion Gap BUN Creatinine Est GFR (CKD-EPI 2020) Glucose Calcium Troponin I 533 H*
--- NOTE | 2024-04-21 16:33 | W.PM.PROGNOT ---
Date of Service Date of service: 04/21/24 Time of Service: 16:33 Assessment and Plan Assessment and plan (1) Influenza A: Status: Acute Assessment and plan: Will continue with Tamiflu 75 mg p.o. twice daily. Continue with supportive care. Patient's chest x-ray does not demonstrate any evidence of infiltrate to suggest superimposed bacterial pneumonia. Will provide IV hydration with LR at 100 mL/hour. Patient is currently stable on room air. Will provide Tylenol and Dillard as needed for pain (2) Acute sinusitis: Status: Acute Assessment and plan: Continue Augmentin 875 mg twice daily. Will provide Tylenol and Dillard as needed for pain 04/21/24 Will hold augmentin at this point. Not sure if very beneficial (3) Elevated troponin: Status: Acute Assessment and plan: Suspect type II NSTEMI secondary to ischemic demand in the setting of her influenza A and likely dehydration. Patient's troponin emergency department has been fluctuating but relatively stable without progressive or steady increase. Repeat troponin is pending. Patient denies chest pain. Will hold on heparin drip at this point and continue patient's Eliquis. Continue to monitor on telemetry. Will plan for echocardiogram consider cardiology consultation in the morning. Continue statin, metoprolol, Ranexa. (4) Pulmonary emboli: Status: Chronic Assessment and plan: Patient with history of pulmonary embolus. Continue Eliquis. (5) Sick euthyroidism: Status: Acute Assessment and plan: Patient's TSH is elevated with normal free T4. Suspect euthyroid sick syndrome. (6) GERD (gastroesophageal reflux disease): Status: Chronic Assessment and plan: Continue omeprazole (7) MARYLOU (obstructive sleep apnea): Status: Chronic Assessment and plan: Patient will use CPAP during her hospitalization (8) Chronic heart failure with preserved ejection fraction: Status: Chronic Assessment and plan: No evidence to suggest decompensated heart failure. Patient does not appear to be volume overloaded. Given her nausea, vomiting and diarrhea we will hold her torsemide for now as well as her metolazone. Continue metoprolol and empagliflozin. Plan to obtain echocardiogram this morning. Continue to monitor on telemetry (9) CKD stage 3b, GFR 30-44 ml/min: Status: Acute Assessment and plan: Patient's creatinine is near her baseline of 1.4. Will renally dose all medications and avoid nephrotoxins. (10) Hypotension: Status: Acute Assessment and plan: wean levophed as tolerated. Pt has h/o diarrhea but seems euvolemic currently Subjective Subjective Interval history since last seen: Pt seen and examined this am. POC d/w pt as well as with bedside nurse during ICU huddle Exam Narrative Exam Narrative: Gen: Reese 54-year-old female resting in no acute distress HEENT: AT/NC. PERRL. No scleral icterus. Mucous membranes moist Neck: Supple. Full ROM. No JVD, thyromegaly or lymphadenopathy. CVS: RRR with normal S1/S2. No M/G/R Lungs: Clear to auscultation bilaterally without R/R/W Abdomen: S/NT/ND. No guarding or rebound. No masses Extremities: Warm and well perfused. No C/C/E. Pulses 2/4 in DP/TP Neuro: Alert and oriented x 3. CN 3-12 intact. Normal strength and sensation throughout. Speech is fluent Psych: Appropriate and cooperative Skin: intact without rashes or lesions Objective Last Vital Signs Temp 36.4 C L 04/21/24 08:00 Pulse 47 L 04/21/24 10:56 Resp 21 04/21/24 10:56 BP 107/56 L 04/21/24 10:56 Pulse Ox 95 04/21/24 13:14 Laboratory Results - last 24 hr 04/20/24 04/20/24 04/21/24 22:16 23:05 05:40 WBC 6.75 RBC 4.33 Hgb 14.1 Hct 41.6 MCV 96 H MCH 32.6 MCHC 33.9 RDW 11.8 Plt Count 217 MPV 10.7 D-Dimer 362 Sodium 139 Potassium 3.3 L Chloride 107 Carbon Dioxide 23.7 Anion Gap 8.3 BUN 13 Creatinine 1.3 H Est GFR (CKD-EPI 2020) 48.56 Glucose 114 H Calcium 8.4 L Troponin I 518 H* 04/21/24 06:00 WBC RBC Hgb Hct MCV MCH MCHC RDW Plt Count MPV D-Dimer Sodium Potassium Chloride Carbon Dioxide Anion Gap BUN Creatinine Est GFR (CKD-EPI 2020) Glucose Calcium Troponin I 533 H* Time Spent with Patient Time Spent with Patient: 25-34 minutes Time was spent: preparing to see the patient(eg.review tests), obtaining and/or reviewing separately otained hiistory, ordering medications,tests, procedures, referring, communicating with other health career guidance technician, indepentently interpreting results, counseling the patient and care coordination
[2024-04-21] MEDS: Atorvastatin 40 MG TAB PO (20:15)
[2024-04-21] MEDS: Gabapentin 600 MG TAB PO (20:15)
[2024-04-21] MEDS: Potassium Chloride 20 MEQ TABCR PO (20:16)
[2024-04-21] MEDS: Topiramate 100 MG TAB PO (20:16)
[2024-04-22] VITALS (61 sets, daily range): BP systolic 87–119; BP diastolic 43–71; PULSE 43–59; RESP 5–26; TEMP 36–36.7; O2SAT 89–99
[2024-04-22] MEDS: HYDROcodone 5/Acetaminophen 325 TAB PO ×3 (03:09→20:09)
[2024-04-22] MEDS: Benzonatate 100 MG CAP PO ×2 (03:15→20:09)
[2024-04-22 06:31] LABS: Abs Immature Grans 0.01 10^3/uL (0.0-0.06); Absolute Basophil Count 0.01 10^3/uL (0.0-0.2); Absolute Eosinophil Count 0.14 10^3/uL (0.0-0.7); Absolute Lymphocyte Count 2.21 10^3/uL (1.2-3.4); Absolute Monocyte Count 0.26 10^3/uL (0.1-0.8); Absolute Neutrophil Count 1.39 10^3/uL (1.2-6.7); Basophils % 0.2 %; Eosinophils % 3.5 %; HCT 38.4 % (36.0-46.0); HGB 12.7 g/dL (11.2-15.7); Immature Grans % 0.2 %; MCH 32.4 pg (27.0-33.0); MCHC 33.1 % (32.0-36.0); MCV 98 fL (80-95); MPV 10.8 fL (8.0-11.0); Monocytes % 6.5 %; Neutrophils % 34.6 %; Platelet Count 148 10^3/uL (130-400); RBC 3.92 10^6/uL (3.93-5.22); RDW 12.1 % (11.7-14.6); RDW-SD 43.3 fL; WBC 4.02 10^3/uL (4.4-10.8)
[2024-04-22 07:00] LABS: ALT 14 U/L (14-59); AST 25 U/L (15-37); Albumin 2.4 g/dL (3.4-5.0); Alkaline Phosphatase 44 U/L (46-116); Anion Gap 7.2 mmol/L (3-11); BUN 8 mg/dL (7-18); Bilirubin, Total 0.39 mg/dL (0.2-1.0); CO2 23.8 mmol/L (21.0-32.0); Calcium 8.4 mg/dL (8.5-10.1); Chloride 111 mmol/L (98-107); Estimated GFR 66.53 (mL/min/1.73m2); Folate 10.9 ng/mL (8.6-20.0); Glucose 83 mg/dL (74-106); Potassium 4.2 mmol/L (3.5-5.1); Sodium 142 mmol/L (136-145); Total Protein 5.9 g/dL (6.4-8.2)
[2024-04-22 07:12] LABS: Vitamin B12 206 pg/mL (193-986)
[2024-04-22] MEDS: Lactated Ringers 1,000 ML 75 ML IV ×2 (08:43→21:45)
[2024-04-22] MEDS: Ranolazine 500 MG TABCR 1000 MG PO ×2 (10:25→20:09)
[2024-04-22] MEDS: DULoxetine 30 MG CAP 60 MG PO (10:27)
[2024-04-22] MEDS: Oseltamivir 75 MG CAP PO ×2 (10:27→20:09)
[2024-04-22] MEDS: Potassium Chloride 20 MEQ TABCR PO ×2 (10:28→20:08)
[2024-04-22] MEDS: Apixaban 5 MG TAB PO ×2 (10:28→20:10)
[2024-04-22] MEDS: Omeprazole 20 MG CAPCR PO (10:29)
[2024-04-22] MEDS: Normal Saline Flush 10 ML SYR IVP (10:29)
--- NOTE | 2024-04-22 12:27 | PGE_ITS ---
Date of Service Date of service: 04/22/24 Time of Service: 12:27 Assessment and Plan Assessment and plan (1) Influenza A: Status: Acute Assessment and plan: Will continue with Tamiflu 75 mg p.o. twice daily. Continue with supportive care. Patient's chest x-ray does not demonstrate any evidence of infiltrate to suggest superimposed bacterial pneumonia. Will provide IV hydration with LR at 100 mL/hour. Patient is currently stable on room air. Will provide Tylenol and [place] as needed for pain (2) Acute sinusitis: Status: Acute Assessment and plan: Continue Augmentin 875 mg twice daily. Will provide Tylenol and [place] as needed for pain 04/21/24 Will hold augmentin at this point. Not sure if very beneficial (3) Elevated troponin: Status: Acute Assessment and plan: Suspect type II NSTEMI secondary to ischemic demand in the setting of her influenza A and likely dehydration. Patient's troponin emergency department has been fluctuating but relatively stable without progressive or steady increase. Repeat troponin is pending. Patient denies chest pain. Will hold on heparin drip at this point and continue patient's Eliquis. Continue to monitor on telemetry. Will plan for echocardiogram consider cardiology consultation in the morning. Continue statin, metoprolol, Ranexa. 04/22/24 Recheck troponins in am. No current s/s ACS (4) Pulmonary emboli: Status: Chronic Assessment and plan: Patient with history of pulmonary embolus. Continue Eliquis. (5) Sick euthyroidism: Status: Acute Assessment and plan: Patient's TSH is elevated with normal free T4. Suspect euthyroid sick syndrome. (6) GERD (gastroesophageal reflux disease): Status: Chronic Assessment and plan: Continue omeprazole (7) MARYLOU (obstructive sleep apnea): Status: Chronic Assessment and plan: Patient will use CPAP during her hospitalization (8) Chronic heart failure with preserved ejection fraction: Status: Chronic Assessment and plan: No evidence to suggest decompensated heart failure. Patient does not appear to be volume overloaded. Given her nausea, vomiting and diarrhea we will hold her torsemide for now as well as her metolazone. Continue metoprolol and empagliflozin. Plan to obtain echocardiogram this morning. Continue to monitor on telemetry (9) CKD stage 3b, GFR 30-44 ml/min: Status: Acute Assessment and plan: Patient's creatinine is near her baseline of 1.4. Will renally dose all medications and avoid nephrotoxins. (10) Hypotension: Status: Acute Assessment and plan: wean levophed as tolerated. Pt has h/o diarrhea but seems euvolemic currently 04/22/24 levophed has been stopped. Will increase LR to 125/hr (11) Migraine: Status: Chronic Assessment and plan: Will add excedrin migraine and monitor for results Subjective Subjective Interval history since last seen: Pt seen and examined in her room. Complains of a headache with associated phono and photophobia. POC d/w pt as well as bedside nurse during MDR. Exam Narrative Exam Narrative: Gen: Pleasant 54-year-old female resting in no acute distress HEENT: AT/NC. PERRL. No scleral icterus. Mucous membranes moist Neck: Supple. Full ROM. No JVD, thyromegaly or lymphadenopathy. CVS: RRR with normal S1/S2. No M/G/R Lungs: Clear to auscultation bilaterally without R/R/W Abdomen: S/NT/ND. No guarding or rebound. No masses Extremities: Warm and well perfused. No C/C/E. Pulses 2/4 in DP/TP Neuro: Alert and oriented x 3. CN 3-12 intact. Normal strength and sensation throughout. Speech is fluent Psych: Appropriate and cooperative Skin: intact without rashes or lesions Objective Last Vital Signs Temp 36.6 C 04/22/24 11:09 Pulse 47 L 04/22/24 08:02 Resp 19 04/22/24 08:02 BP 87/50 L 04/22/24 08:02 Pulse Ox 97 04/22/24 08:47 Laboratory Results - last 24 hr 04/22/24 04/22/24 05:35 05:57 WBC 4.02 L RBC 3.92 L Hgb 12.7 Hct 38.4 MCV 98 H MCH 32.4 MCHC 33.1 RDW 12.1 Plt Count 148 MPV 10.8 Immature Gran % 0.2 Neutrophils % 34.6 Lymphocytes % 55.0 Monocytes % 6.5 Eosinophils % 3.5 Basophils % 0.2 Nucleated RBC % 0.0 Absolute Neutrophils 1.39 Absolute Lymphocytes 2.21 Absolute Monocytes 0.26 Absolute Eosinophils 0.14 Absolute Basophils 0.01 Sodium 142 Potassium 4.2 Chloride 111 H Carbon Dioxide 23.8 Anion Gap 7.2 BUN 8 Creatinine 1.0 Est GFR (CKD-EPI 2020) 66.53 Glucose 83 Calcium 8.4 L Total Bilirubin 0.39 AST 25 ALT 14 Alkaline Phosphatase 44 L Total Protein 5.9 L Albumin 2.4 L Vitamin B12 Cancelled 206 Folate 10.9 Time Spent with Patient Time Spent with Patient: 35-49 minutes Time was spent: preparing to see the patient(eg.review tests), obtaining and/or reviewing separately otained hiistory, ordering medications,tests, procedures, referring, communicating with other health laboratory animal caretaker, indepentently interpreting results, counseling the patient and care coordination
[2024-04-22] MEDS: rOPINIRole 1 MG TAB PO ×2 (15:45→20:10)
[2024-04-22] MEDS: Gabapentin 600 MG TAB PO (20:10)
[2024-04-22] MEDS: Atorvastatin 40 MG TAB PO (20:10)
[2024-04-22] MEDS: Topiramate 100 MG TAB PO (20:10)
[2024-04-22] MEDS: Melatonin 3 MG TAB 9 MG PO (20:24)
--- NOTE | 2024-04-22 23:56 | W.PC.ACHO ---
Registration Status: Primary Language: Preferred Language: ED Information & Data Chief Complaint Nausea/Vomit/Diar 04/20/24 00:11 Triage Note pt states not feeling well 04/19/24 23:38 for last 3 weeks with cold symptoms, tonight states nausea and vomiting came out of no where tonight, started at approx 2245, 2 vomiting episodes, hit face off toilet when retching, noted black eye R side. States severe nausea, denies abd pain. Ate and drank normally today. Medical / Surgical History (Last Reviewed 04/20/24 @ 04:40 by Nalini Domínguez MD) Myocardial infarction 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 Mild intermittent asthma Atherosclerosis of renal artery Heart failure Supraventricular tachycardia Atrial fibrillation Superior mesenteric artery stenosis (~03/10/22) Renal artery stenosis (~03/10/22) Hx of supraventricular tachycardia Infiltrate of lower lobe of left lung present on imaging study Acute non-ST elevation myocardial infarction (NSTEMI) COVID-19 Left lateral epicondylitis Arthritis of carpometacarpal (CMC) joint of left thumb Left wrist pain CHI (closed head injury) Acute bronchitis Non-ST elevation NM (NSTEMI) Insomnia Asthma Overweight Endometriosis Depression (Last Reviewed 04/20/24 @ 04:40 by Nalini Domínguez MD) History of radiofrequency ablation (RFA) procedure for cardiac arrhythmia Hx of tubal ligation History of partial hysterectomy Most Recent Vital Signs Temperature 36 C L 04/22/24 23:17 Temperature Source Temporal Artery Scan 04/22/24 23:17 Pulse 44 L 04/22/24 23:17 Pulse 57 L 04/22/24 23:00 Respiratory Rate 16 04/22/24 23:17 Blood Pressure 113/65 04/22/24 23:17 Blood Pressure Mean 61 04/22/24 19:32 Blood Pressure Position Sitting 04/19/24 23:38 Pulse Oximetry 97 04/22/24 23:17 Oxygen Delivery Method Room Air 04/22/24 23:17 Oxygen Flow Rate 0 04/22/24 23:17 Pain Level 1 04/22/24 23:17 Comment O2 measured at RA, Pt is currently on 1L NC for sleep 04/22/24 23:17 Comment No NORepi 04/21/24 18:37 Allergies clobetasol Adverse Reaction (Intermediate, Verified 04/10/24 16:48) Skin Rash codeine Adverse Reaction (Mild, Verified 04/10/24 16:48) Not able to sleep ibuprofen Adverse Reaction (Unverified 04/10/24 16:48) migraines environmental Allergy (Mild, Uncoded 04/10/24 16:48) sneezing/triggers her asthma Precautions Isolation Standard precaution 04/19/24 23:42 Active Medications Generic Name Dose Route Start Last Admin Trade Name Freq PRN Reason Stop Dose Admin Acetaminophen 0 mg 04/20/24 05:05 04/20/24 08:59 Acetaminophen 325 Mg Tab PO 650 mg Q4H PRN PRN Administration Hydrocodone Bitart/Acetaminophen 1 tab 04/20/24 04:31 04/22/24 20:09 Hydrocodone 5/Acetaminophen 325 Tab PO 1 tab Q6H PRN PRN Administration Apixaban 5 mg 04/20/24 08:30 04/22/24 20:10 Apixaban 5 Mg Tab PO 5 mg BID JOSE Administration Atorvastatin Calcium 40 mg 04/20/24 20:00 04/22/24 20:10 Atorvastatin 40 Mg Tab PO 40 mg QPM JOSE Administration Benzonatate 100 mg 04/20/24 05:05 04/22/24 20:09 Benzonatate 100 Mg Cap PO 100 mg TID PRN PRN Administration cough Duloxetine HCl 60 mg 04/20/24 08:30 04/22/24 10:27 Duloxetine 30 Mg Cap PO 60 mg DAILY JOSE Administration Empagliflozin 10 mg 04/20/24 08:30 04/20/24 09:00 Empaglifozin 10 Mg Tab PO 10 mg DAILY JOSE Administration Fluticasone Propionate 0 gm 04/20/24 08:30 04/22/24 11:26 Fluticasone Nasal [place] 16 Gm Btl NS Not Given DAILY JOSE Gabapentin 600 mg 04/20/24 20:00 04/22/24 20:10 Gabapentin 600 Mg Tab PO 600 mg HS JOSE Administration Ringer's Solution 1,000 mls @ 125 mls/hr 04/20/24 04:32 04/22/24 21:45 IV 75 mls/hr INFUSION JOSE Administration Melatonin 9 mg 04/20/24 08:13 04/22/24 20:24 Melatonin 3 Mg Tab PO 9 mg HS PRN PRN Administration Omeprazole 20 mg 04/20/24 07:30 04/22/24 10:29 Omeprazole 20 Mg Capcr PO 20 mg DAILY@0730 JOSE Administration Ondansetron HCl 4 mg 04/20/24 18:45 04/20/24 18:58 Ondansetron 4 Mg/2 Ml Vial IVP 4 mg Q8H PRN PRN Administration Oseltamivir Phosphate 75 mg 04/22/24 08:30 04/22/24 20:09 Oseltamivir 75 Mg Cap PO 04/24/24 20:01 75 mg BID JOSE Administration Potassium Chloride 20 meq 04/21/24 20:00 04/22/24 20:08 Potassium Chloride 20 Meq Tabcr PO 20 meq BID JOSE Administration Ranolazine 1,000 mg 04/20/24 08:30 04/22/24 20:09 Ranolazine 500 Mg Tabcr PO 1,000 mg BID JOSE Administration Ropinirole HCl 1 mg 04/20/24 16:00 04/22/24 20:10 Ropinirole 1 Mg Tab PO 1 mg BID@1600,2000 JOSE Administration Sodium Chloride 0 ml 04/21/24 15:45 04/22/24 10:29 Normal Saline Flush 10 Ml Syr IVP 20 ml PRN PRN Administration Topiramate 100 mg 04/20/24 20:00 04/22/24 20:10 Topiramate 100 Mg Tab PO 100 mg HS JOSE Administration IV IV Catheter Type [Left Saline Lock Antecubital] IV Catheter Type [Right Peripheral IV Antecubital] IV Catheter Gauge [Left 20 Antecubital] IV Catheter Gauge [Right 20 Antecubital] Diagnostics 04/22/24 04/22/24 04/22/24 Range/Units 12:51 05:57 05:35 WBC 4.02 L (4.4-10.8) 10^3/uL RBC 3.92 L (3.93-5.22) 10^6/uL Hgb 12.7 (11.2-15.7) g/dL Hct 38.4 (36.0-46.0) % MCV 98 H (80-95) fL MCH 32.4 (27.0-33.0) pg MCHC 33.1 (32.0-36.0) % RDW 12.1 (11.7-14.6) % Plt Count 148 (130-400) 10^3/uL MPV 10.8 (8.0-11.0) fL Immature Gran % 0.2 % Neutrophils % 34.6 % Lymphocytes % 55.0 % Monocytes % 6.5 % Eosinophils % 3.5 % Basophils % 0.2 % Nucleated RBC % 0.0 (0.0-0.3) % Absolute Neutrophils 1.39 (1.2-6.7) 10^3/uL Absolute Lymphocytes 2.21 (1.2-3.4) 10^3/uL Absolute Monocytes 0.26 (0.1-0.8) 10^3/uL Absolute Eosinophils 0.14 (0.0-0.7) 10^3/uL Absolute Basophils 0.01 (0.0-0.2) 10^3/uL Sodium 142 (136-145) mmol/L Potassium 4.2 (3.5-5.1) mmol/L Chloride 111 H (98-107) mmol/L Carbon Dioxide 23.8 (21.0-32.0) mmol/L Anion Gap 7.2 (3-11) mmol/L BUN 8 (7-18) mg/dL Creatinine 1.0 (0.55-1.02) mg/dL Est GFR (CKD-EPI 2020) 66.53 (mL/min/1.73m2) Glucose 83 (74-106) mg/dL Calcium 8.4 L (8.5-10.1) mg/dL Total Bilirubin 0.39 (0.2-1.0) mg/dL AST 25 (15-37) U/L ALT 14 (14-59) U/L Alkaline Phosphatase 44 L (46-116) U/L Total Protein 5.9 L (6.4-8.2) g/dL Albumin 2.4 L (3.4-5.0) g/dL Vitamin B12 206 Cancelled Folate 10.9 (8.6-20.0) ng/mL B. divergens/MO-1 PCR Pending Babesia duncani (PCR) Pending Babesia microti DNA PCR Pending Lyme Disease Antibody Pending E.chaffeensis DNA (PCR) Pending E.ewingii/canis DNA PCR Pending E.muris eauclairensis (PCR) Pending A. phagocytophilum (PCR) Pending Blood B. miyamotoi (PCR) Pending Intake and Output - 24 Hour Total 04/19/24 23:35 thru 04/22/24 21:45 Intake Total 7675.716 Output Total 5085 Balance 2590.716 Weight 93.9 kg Intake: IV 6475.716 Oral 1200 Output: Urine 4985 Stool 100 Other: Urine Color Yellow Urine Appearance Clear Urine Odor None Comment sometimes it feels like I have to go and I don't but states she has had her urine tested and doesn't have a UTI when that happens. S/P hysterectomy Stool Characteristics Liquid Falls Risk Assessment History of Falls No History 04/19/24 23:42 Contributing Factors No Factors 04/19/24 23:42 Ambulatory Aids Independent 04/19/24 23:42 Tubes/Lines None 04/19/24 23:42 Gait Evaluation No gait disturbance 04/19/24 23:42 Cognition No cognitive impairment 04/19/24 23:42 Fall Total Score 0 04/19/24 23:42 Level of Risk Standard/Low Risk 04/19/24 23:42 Problems (Last Reviewed 04/20/24 @ 04:40 by Nalini Domínguez MD) Migraine (Chronic) Hypotension (Acute) Acute sinusitis (Acute) CKD stage 3b, GFR 30-44 ml/min (Acute) Influenza A (Acute) Elevated troponin (Acute) Sick euthyroidism (Acute) GERD (gastroesophageal reflux disease) (Chronic) Pulmonary emboli (Chronic) Chronic heart failure with preserved ejection fraction (Chronic) MARYLOU (obstructive sleep apnea) (Chronic) Notes 04/21/24 08:57 Respiratory by Lorna Valderrama 04/21/2024 Pt states that she has a home BIPAP from [facility] but she is unsure of settings and does not have any way to bring it in to hospital. Pt would like to use our [id number] while she is here. Pt does have facial injury, she states she wants to wear it as long as it does not hurt her face. Pt is asthmatic and states she can not have any scents in room. Initialized on 04/21/24 08:57 - END OF NOTE 04/20/24 08:11 Nursing Notes by Jo Ann Painting pt with sustained BP in low 90's, MAP below 60, per ED MD give extra 500ml bolus, updated Dr Loving at 0800 to MAP 43, no new orders, pt moved to ED3, plan for new IV, med orders with holding orders being placed, pt remains on precautions for Flu, remains afebrile and HR in 50's, no resp s/s at this time, back and hip pain. Initialized on 04/20/24 08:11 - END OF NOTE v v v v v v v v v Sending and/or Receiving Nurses: Please use comment section below to note any information pertinent to the patient hand-off not included above. Information / Comments:Pt admit to med/surg unit @2312, for further monitoring. Pt is flu A positive, and on droplet precautions. Pt is bradycardic, tele orders are in place. Lung sounds clear but on 1 L NC for sleep due to at home BIPAP use. Pt admit due to fall resulting in fracture of the rt. orbital. Bruising around the rt. eye noted. Pain reported in rt hip and shoulder. Pain score currently a 1. Report received from:Report received from Chet HOOD, ICU nurse @ 2252, 04/22/24. Arrived on unit at 2312, 04/22/24.
--- NOTE | 2024-04-23 05:32 | NUR.NOTE ---
Pt could benefit from a Pharmacy consult to discuss home meds regarding effects of medication Ranolazine to T[place] Angina. This med. also causes bradycardia, which in her case could be an adverse. Tawny RN, ICU brought this to my attention earlier this morning.
[2024-04-23 06:32] LABS: Abs Immature Grans 0.01 10^3/uL (0.0-0.06); Absolute Basophil Count 0.01 10^3/uL (0.0-0.2); Absolute Eosinophil Count 0.13 10^3/uL (0.0-0.7); Absolute Lymphocyte Count 2.19 10^3/uL (1.2-3.4); Absolute Monocyte Count 0.24 10^3/uL (0.1-0.8); Absolute Neutrophil Count 1.19 10^3/uL (1.2-6.7); Basophils % 0.3 %; Eosinophils % 3.4 %; HCT 39.2 % (36.0-46.0); HGB 12.9 g/dL (11.2-15.7); Immature Grans % 0.3 %; Lymphocytes % 58.1 %; MCH 32.4 pg (27.0-33.0); MCHC 32.9 % (32.0-36.0); MCV 99 fL (80-95); MPV 10.6 fL (8.0-11.0); Monocytes % 6.4 %; Neutrophils % 31.5 %; Platelet Count 164 10^3/uL (130-400); RBC 3.98 10^6/uL (3.93-5.22); RDW-SD 43.8 fL; WBC 3.77 10^3/uL (4.4-10.8)
[2024-04-23 06:57] LABS: ALT 17 U/L (14-59); AST 18 U/L (15-37); Albumin 2.5 g/dL (3.4-5.0); Alkaline Phosphatase 42 U/L (46-116); Anion Gap 6.5 mmol/L (3-11); BUN 6 mg/dL (7-18); Bilirubin, Total 0.33 mg/dL (0.2-1.0); CO2 25.5 mmol/L (21.0-32.0); Calcium 8.6 mg/dL (8.5-10.1); Chloride 111 mmol/L (98-107); Estimated GFR 66.53 (mL/min/1.73m2); Glucose 86 mg/dL (74-106); Potassium 4.1 mmol/L (3.5-5.1); Sodium 143 mmol/L (136-145)
[2024-04-23 07:42] VITALS: BP 103/64; PULSE 59; RESP 19; TEMP 36.8; O2SAT 94
[2024-04-23] MEDS: Oseltamivir 75 MG CAP PO ×2 (07:54→19:54)
[2024-04-23] MEDS: DULoxetine 30 MG CAP 60 MG PO (07:55)
[2024-04-23] MEDS: Potassium Chloride 20 MEQ TABCR PO ×2 (07:55→19:55)
[2024-04-23] MEDS: Empaglifozin 10 MG TAB PO (07:56)
[2024-04-23] MEDS: Apixaban 5 MG TAB PO ×2 (07:56→19:55)
[2024-04-23] MEDS: Omeprazole 20 MG CAPCR PO (07:56)
[2024-04-23] MEDS: Normal Saline Flush 10 ML SYR IVP (07:57)
[2024-04-23] MEDS: Fluticasone NASAL SPRAY 16 GM BTL NS (07:57)
[2024-04-23] MEDS: Lactated Ringers 1,000 ML 75 ML IV (11:18)
--- NOTE | 2024-04-23 12:05 | PGE_ITS ---
Date of Service Date of service: 04/23/24 Time of Service: 17:36 Objective Last Vital Signs Temp 36.8 C 04/23/24 07:42 Pulse 59 L 04/23/24 07:42 Resp 19 04/23/24 07:42 BP 103/64 04/23/24 07:42 Pulse Ox 94 04/23/24 07:42 Laboratory Results - last 24 hr 04/23/24 06:08 WBC 3.77 L RBC 3.98 Hgb 12.9 Hct 39.2 MCV 99 H MCH 32.4 MCHC 32.9 RDW 12.0 Plt Count 164 MPV 10.6 Immature Gran % 0.3 Neutrophils % 31.5 Lymphocytes % 58.1 Monocytes % 6.4 Eosinophils % 3.4 Basophils % 0.3 Nucleated RBC % 0.0 Absolute Neutrophils 1.19 L Absolute Lymphocytes 2.19 Absolute Monocytes 0.24 Absolute Eosinophils 0.13 Absolute Basophils 0.01 Sodium 143 Potassium 4.1 Chloride 111 H Carbon Dioxide 25.5 Anion Gap 6.5 BUN 6 L Creatinine 1.0 Est GFR (CKD-EPI 2020) 66.53 Glucose 86 Calcium 8.6 Total Bilirubin 0.33 AST 18 ALT 17 Alkaline Phosphatase 42 L Total Protein 6.0 L Albumin 2.5 L Time Spent with Patient Time Spent with Patient: 25-34 minutes Time was spent: preparing to see the patient(eg.review tests), obtaining and/or reviewing separately otained hiistory, ordering medications,tests, procedures, referring, communicating with other health care team coordinator scheduler, indepentently interpreting results, counseling the patient and care coordination
--- NOTE | 2024-04-23 15:57 | PGE_ITS ---
Date of Service Date of service: 04/23/24 Time of Service: 15:57 Assessment and Plan Assessment and plan (1) Influenza A: Status: Acute Assessment and plan: Will continue with Tamiflu 75 mg p.o. twice daily. Continue with supportive care. Patient's chest x-ray does not demonstrate any evidence of infiltrate to suggest superimposed bacterial pneumonia. Will provide IV hydration with LR at 100 mL/hour. Patient is currently stable on room air. Will provide Tylenol and [place] as needed for pain (2) Acute sinusitis: Status: Acute Assessment and plan: Continue Augmentin 875 mg twice daily. Will provide Tylenol and [place] as needed for pain 04/21/24 Will hold augmentin at this point. Not sure if very beneficial (3) Elevated troponin: Status: Acute Assessment and plan: Suspect type II NSTEMI secondary to ischemic demand in the setting of her influenza A and likely dehydration. Patient's troponin emergency department has been fluctuating but relatively stable without progressive or steady increase. Repeat troponin is pending. Patient denies chest pain. Will hold on heparin drip at this point and continue patient's Eliquis. Continue to monitor on telemetry. Will plan for echocardiogram consider cardiology consultation in the morning. Continue statin, metoprolol, Ranexa. 04/22/24 Recheck troponins in am. No current s/s ACS (4) Pulmonary emboli: Status: Chronic Assessment and plan: Patient with history of pulmonary embolus. Continue Eliquis. (5) Sick euthyroidism: Status: Acute Assessment and plan: Patient's TSH is elevated with normal free T4. Suspect euthyroid sick syndrome. (6) GERD (gastroesophageal reflux disease): Status: Chronic Assessment and plan: Continue omeprazole (7) MARYLOU (obstructive sleep apnea): Status: Chronic Assessment and plan: Patient will use CPAP during her hospitalization (8) Chronic heart failure with preserved ejection fraction: Status: Chronic Assessment and plan: No evidence to suggest decompensated heart failure. Patient does not appear to be volume overloaded. Given her nausea, vomiting and diarrhea we will hold her torsemide for now as well as her metolazone. Continue metoprolol and empagliflozin. Plan to obtain echocardiogram this morning. Continue to monitor on telemetry (9) CKD stage 3b, GFR 30-44 ml/min: Status: Acute Assessment and plan: Patient's creatinine is near her baseline of 1.4. Will renally dose all medications and avoid nephrotoxins. (10) Hypotension: Status: Acute Assessment and plan: wean levophed as tolerated. Pt has h/o diarrhea but seems euvolemic currently 04/22/24 levophed has been stopped. Will increase LR to 125/hr (11) Migraine: Status: Chronic Assessment and plan: Will add excedrin migraine and monitor for results Subjective Subjective Interval history since last seen: Pt seen and examined in her room. Still with some weakness and would like to stay another day Exam Narrative Exam Narrative: Gen: Pleasant 54-year-old female resting in no acute distress HEENT: AT/NC. PERRL. No scleral icterus. Mucous membranes moist Neck: Supple. Full ROM. No JVD, thyromegaly or lymphadenopathy. CVS: RRR with normal S1/S2. No M/G/R Lungs: Clear to auscultation bilaterally without R/R/W Abdomen: S/NT/ND. No guarding or rebound. No masses Extremities: Warm and well perfused. No C/C/E. Pulses 2/4 in DP/TP Neuro: Alert and oriented x 3. CN 3-12 intact. Normal strength and sensation throughout. Speech is fluent Psych: Appropriate and cooperative Skin: intact without rashes or lesions Objective Last Vital Signs Temp 36.8 C 04/23/24 07:42 Pulse 59 L 04/23/24 07:42 Resp 19 04/23/24 07:42 BP 103/64 04/23/24 07:42 Pulse Ox 94 04/23/24 07:42 Laboratory Results - last 24 hr 04/23/24 06:08 WBC 3.77 L RBC 3.98 Hgb 12.9 Hct 39.2 MCV 99 H MCH 32.4 MCHC 32.9 RDW 12.0 Plt Count 164 MPV 10.6 Immature Gran % 0.3 Neutrophils % 31.5 Lymphocytes % 58.1 Monocytes % 6.4 Eosinophils % 3.4 Basophils % 0.3 Nucleated RBC % 0.0 Absolute Neutrophils 1.19 L Absolute Lymphocytes 2.19 Absolute Monocytes 0.24 Absolute Eosinophils 0.13 Absolute Basophils 0.01 Sodium 143 Potassium 4.1 Chloride 111 H Carbon Dioxide 25.5 Anion Gap 6.5 BUN 6 L Creatinine 1.0 Est GFR (CKD-EPI 2020) 66.53 Glucose 86 Calcium 8.6 Total Bilirubin 0.33 AST 18 ALT 17 Alkaline Phosphatase 42 L Total Protein 6.0 L Albumin 2.5 L Time Spent with Patient Time Spent with Patient: 25-34 minutes Time was spent: preparing to see the patient(eg.review tests), obtaining and/or reviewing separately otained hiistory, ordering medications,tests, procedures, referring, communicating with other health vocational childcare teacher, indepentently interpreting results, counseling the patient and care coordination
[2024-04-23 19:23] VITALS: BP 99/52; PULSE 53; RESP 16; TEMP 36.3; O2SAT 96
[2024-04-23] MEDS: Atorvastatin 40 MG TAB PO (19:54)
[2024-04-23] MEDS: Gabapentin 600 MG TAB PO (19:55)
[2024-04-23] MEDS: Topiramate 100 MG TAB PO (19:55)
[2024-04-23] MEDS: Acetaminophen 325 MG TAB PO (20:03)
[2024-04-23 23:15] VITALS: BP 111/58; PULSE 53; RESP 15; TEMP 36.9; O2SAT 97
[2024-04-24] MEDS: Lactated Ringers 1,000 ML 75 ML IV (00:28)
[2024-04-24 03:54] VITALS: BP 115/65; PULSE 56; RESP 20; TEMP 36.8; O2SAT 96
[2024-04-24 06:55] LABS: Abs Immature Grans 0.02 10^3/uL (0.0-0.06); Absolute Basophil Count 0.01 10^3/uL (0.0-0.2); Absolute Lymphocyte Count 1.54 10^3/uL (1.2-3.4); Absolute Monocyte Count 0.35 10^3/uL (0.1-0.8); Absolute Neutrophil Count 1.95 10^3/uL (1.2-6.7); Basophils % 0.3 %; Eosinophils % 2.5 %; HCT 39.4 % (36.0-46.0); HGB 13.1 g/dL (11.2-15.7); Immature Grans % 0.5 %; Lymphocytes % 38.8 %; MCHC 33.2 % (32.0-36.0); MCV 96 fL (80-95); MPV 10.8 fL (8.0-11.0); Monocytes % 8.8 %; Neutrophils % 49.1 %; Platelet Count 168 10^3/uL (130-400); RBC 4.09 10^6/uL (3.93-5.22); WBC 3.97 10^3/uL (4.4-10.8)
[2024-04-24 07:27] LABS: ALT 23 U/L (14-59); AST 25 U/L (15-37); Albumin 2.7 g/dL (3.4-5.0); Alkaline Phosphatase 42 U/L (46-116); Anion Gap 8.4 mmol/L (3-11); BUN 7 mg/dL (7-18); Bilirubin, Total 0.35 mg/dL (0.2-1.0); CO2 23.6 mmol/L (21.0-32.0); CREATININE 1.2 mg/dL (0.55-1.02); Calcium 8.8 mg/dL (8.5-10.1); Chloride 112 mmol/L (98-107); Estimated GFR 53.46 (mL/min/1.73m2); Glucose 87 mg/dL (74-106); Potassium 4.3 mmol/L (3.5-5.1); Sodium 144 mmol/L (136-145); Total Protein 6.1 g/dL (6.4-8.2)
[2024-04-24 07:28] VITALS: BP 117/64; PULSE 54; RESP 15; TEMP 36.7; O2SAT 97
[2024-04-24 07:30] LABS: Troponin I 470 ng/L (<or=51)
[2024-04-24] MEDS: Apixaban 5 MG TAB PO (08:43)
[2024-04-24] MEDS: Oseltamivir 75 MG CAP PO (08:43)
[2024-04-24] MEDS: Potassium Chloride 20 MEQ TABCR PO (08:44)
[2024-04-24] MEDS: Empaglifozin 10 MG TAB PO (08:44)
[2024-04-24] MEDS: DULoxetine 30 MG CAP 60 MG PO (08:44)
[2024-04-24] MEDS: Omeprazole 20 MG CAPCR PO (08:44)
[2024-04-24] MEDS: Acetaminophen 325 MG TAB PO (08:47)
[2024-04-24 09:00] VITALS: O2SAT 96
--- NOTE | 2024-04-24 09:06 | NUR.NOTE ---
patient AxOx4 this AM, reports 4/10 TAM, given prn tylenol with AM meds, holding ranexa this AM per MD Loving, holding IVF per MD Loving, good appetite, resting in bed, requesting 2L NC stay on for intermittent sleep (has MARYLOU no CPAP here with her), reports no BM today, pending stool results, VSS, R eye with bruising 2/2 fall at home, pending PT eval and possible d/c to home. On tamiflu BID for flu A. Bed low/locked, call ghosh in reach, whiteboard updated. POC discussed. Nursing Note:
--- NOTE | 2024-04-24 09:54 | DSE_ITS ---
Date of service: 04/24/24 Time of Service: 09:54 DS: Diagnosis Discharge Diagnosis (1) Influenza A: Status: Acute (2) Acute sinusitis: Status: Acute (3) Elevated troponin: Status: Acute (4) Pulmonary emboli: Status: Chronic (5) Sick euthyroidism: Status: Acute (6) GERD (gastroesophageal reflux disease): Status: Chronic (7) MARYLOU (obstructive sleep apnea): Status: Chronic (8) Chronic heart failure with preserved ejection fraction: Status: Chronic (9) CKD stage 3b, GFR 30-44 ml/min: Status: Acute (10) Hypotension: Status: Acute (11) Migraine: Status: Chronic Discharge Plan Disposition Patient Disposition: Home Condition: Improving Discharge Details Reason For Visit: nausea / face injury Admit Date/Time: 04/20/24 04:10 Admit Provider: Nalini Domínguez Attending Provider: Nalini Domínguez Primary Care Provider: Polo Pearce Hospital Course Hospital Course: This is a 54-year-old female who was admitted to our hospital on 04/24/2024 for the flu as well as hypotension. The patient did require pressure support with Levophed on the first 2 days of admission but then was weaned off. Patient was transferred to the floor and continue to improve in regards to her symptomology. The exact etiology of her bradycardia and hypotension remains unknown but it has resolved. The patient was on metoprolol which could certainly be contributing to her hypotension and bradycardia but I would be surprised if this was also responsible factor. At any rate on the she has to be discharged home to which we readily agreed. In regards to her diagnostic information her H&H was 13 and 39 respectively. MCV elevated 96 will need outpatient workup at the discretion of her PCP she does have stool studies as well as a Lyme titer pending will need to be followed up in the outpatient setting. Patient can have bradycardia from Lyme's disease S1 this panel was ordered her electrolytes were essentially benign. Patient did have elevated troponins throughout her stay but in reviewing her old records she has chronic troponin leak does not appear to be cardiac in nature. Once again will defer to the outpatient setting and her PCP for further workup and evaluation. In regards to imaging and echocardiogram was performed on the and showed an EF of 60 to 65% normal wall motion ascending aorta measuring 3.56 cm no structural or valvular disease. She also had a CT of her head no intracranial sequelae were noted. The reason she had a CT of her head is because she had a fall prior to admission and has some ecchymotic regions around her right orbit CT of the chest was negative or benign I should say chest x-ray done on admission showed mild cardiomegaly head C-spine facial bones CT done on admission showed a subtle nasal septal fracture # united pansinusitis otherwise negative. Patient will be discharged in good condition. Home Meds and New Rx's Prescriptions: Continued ropinirole 1 mg tablet 1 mg PO BID Rx Instructions: @ 1600 and 2100 Wegovy 0.5 mg/0.5 mL pen injector 0.5 mg subcut QWEEK Rx Instructions: administer weeks 5 through 8 of therapy Ubrelvy 50 mg tablet 50 mg PO ONCE Rx Instructions: as a single dose; may repeat once in >=2 hours after first dose if needed topiramate [Topamax] 100 mg tablet 100 mg PO QHS Qty: 90 3RF Aimovig Autoinjector 140 mg/mL auto-injector 140 mg subcut QMONTH Qty: 1 11RF fluticasone propionate [Flonase Allergy Relief] 9.9 ML spray,suspension 2 spray NS DAILY duloxetine [Cymbalta] 60 mg capsule,delayed release(DR/EC) 60 mg PO DAILY Qty: 30 2RF albuterol sulfate 90 mcg/actuation HFA aerosol inhaler 2 puff inhalation Q4H PRN loratadine [Allergy Relief (loratadine)] 10 mg tablet 10 mg PO DAILY PRN nitroglycerin 0.4 mg tablet, sublingual 0.4 mg sublingual Q5M PRN Rx Instructions: do not exceed 3 doses per episode clobetasol 0.05 % ointment 1 applic topical DIRECTED apixaban 5 mg tablet 5 mg PO BID Jardiance 10 mg tablet 10 mg PO DAILY ranolazine 1,000 mg tablet extended release 12 hr 1,000 mg PO BID montelukast 10 mg tablet 10 mg PO DAILY PRN gabapentin 600 mg tablet 600 mg PO QHS Qty: 90 3RF melatonin 10 mg capsule 10 mg PO HS PRN torsemide 20 mg Tablet 20 mg PO DAILY Qty: 90 0RF metolazone 2.5 mg tablet 2.5 mg PO PRN PRNQty: 0 0RF promethazine 6.25 mg/5 mL syrup 12.5 mg PO Q6H PRN (Reason: cough) Qty: 120 0RF potassium chloride 20 mEq tablet extended release 40 meq PO BID Patient Comments: TAKE TWO TABLETS BY MOUTH TWICE A DAY atorvastatin 40 mg tablet 40 mg PO QPM Patient Comments: TAKE ONE TABLET BY MOUTH EVERY EVENING omeprazole 40 mg capsule,delayed release(DR/EC) 40 mg PO DAILY Patient Comments: TAKE ONE CAPSULE BY MOUTH EVERY DAY Discontinued metoprolol tartrate 25 mg tablet 12.5 mg PO DAILY No Action benzonatate 100 mg capsule 100 mg PO TID PRN (Reason: cough) Qty: 30 0RF Discharge Instructions Referrals: Polo Pearce [Primary Care Provider] - ( Follow up with PCP in 5-7 days) Activity:: Activity as Tolerated Equipment/Supplies:: No Equipment Needed Diet:: As Tolerated Discharge Orders Discharge Orders: Discharge Order (Routine); Ordered 04/24/24 Ordered By: Leon Loving DS: Summary Time Spent with Patient providing and/or coordinating discharge services: Greater than 30 minutes Status at Discharge Functional status at discharge: independent ambulation Overall status at discharge: patient is progressing back to baseline Mental Status: mental status grossly normal Speech and Movement: speech and movement normal Mood: congruent mood Affect: normal affect Quality:SDOH Health Related Social Needs: No Data to Display Exam Narrative Exam Narrative: Gen: Pleasant 54-year-old female resting in no acute distress HEENT: AT/NC. PERRL. No scleral icterus. Mucous membranes moist ECCHYMOSIS RIGHT ORBIT Neck: Supple. Full ROM. No JVD, thyromegaly or lymphadenopathy. CVS: RRR with normal S1/S2. No M/G/R Lungs: Clear to auscultation bilaterally without R/R/W Abdomen: S/NT/ND. No guarding or rebound. No masses Extremities: Warm and well perfused. No C/C/E. Pulses 2/4 in DP/TP Neuro: Alert and oriented x 3. CN 3-12 intact. Normal strength and sensation throughout. Speech is fluent Psych: Appropriate and cooperative Skin: intact without rashes or lesions Psych Mental Status: mental status grossly normal Speech and Movement: speech and movement normal Mood: congruent mood Affect: normal affect DS: Data Vitals/I&O Vitals and I&O: Vital Signs Temperature 36.7 C 04/24/24 07:28 Temperature Source Temporal Artery Scan 04/24/24 07:28 Pulse 54 L 04/24/24 07:28 Pulse 57 L 04/22/24 23:00 Respiratory Rate 15 04/24/24 07:28 Blood Pressure 117/64 04/24/24 07:28 Blood Pressure Mean 61 04/22/24 19:32 Blood Pressure Position Sitting 04/19/24 23:38 Pulse Oximetry 96 04/24/24 09:00 Oxygen Delivery Method Room Air 04/24/24 09:00 Oxygen Flow Rate 0 04/24/24 09:00 Pain Level 4 04/24/24 09:10 Comment headache 04/24/24 07:28 Comment No NORepi 04/21/24 18:37 Intake & Output 04/23/24 04/23/24 04/24/24 11:59 23:59 11:59 Intake Total 1200 / 1660 460 / 1660 987.5 / 987.5 Output Total 1125 / 2400 1275 / 2400 500 / 500 Balance 75 / -740 -815 / -740 487.5 / 487.5 Intake: IV 1000 / 1000 987.5 / 987.5 Oral 200 / 660 460 / 660 Output: Urine 1125 / 2200 1075 / 2200 500 / 500 Stool 200 / 200 Other: Urine Color Yellow Yellow Yellow Urine Appearance Clear Clear Clear Urine Odor Normal Normal None Comment Pt voided into bedside commode independently. pt. stated they voided Stool Size Moderate Stool Characteristics Soft Liquid Data Completed and Pending Labs on day of discharge: Labs from last 24 hours 04/24/24 04/23/24 06:44 22:07 WBC 3.97 L RBC 4.09 Hgb 13.1 Hct 39.4 MCV 96 H MCH 32.0 MCHC 33.2 RDW 12.0 Plt Count 168 MPV 10.8 Immature Gran % 0.5 Neutrophils % 49.1 Lymphocytes % 38.8 Monocytes % 8.8 Eosinophils % 2.5 Basophils % 0.3 Nucleated RBC % 0.0 Absolute Neutrophils 1.95 Absolute Lymphocytes 1.54 Absolute Monocytes 0.35 Absolute Eosinophils 0.10 Absolute Basophils 0.01 Sodium 144 Potassium 4.3 Chloride 112 H Carbon Dioxide 23.6 Anion Gap 8.4 BUN 7 Creatinine 1.2 H Est GFR (CKD-EPI 2020) 53.46 Glucose 87 Calcium 8.8 Total Bilirubin 0.35 AST 25 ALT 23 Alkaline Phosphatase 42 L Troponin I 470 H* Total Protein 6.1 L Albumin 2.7 L Stool Campylobacter PCR Pending Stool Salmonella PCR Pending Stool Shigella PCR Pending Shiga Toxin (PCR) Pending [facility] All Active Problems (Updated 04/22/24 @ 12:29 by Leon Loving MD) Migraine (Chronic) Hypotension (Acute) Sinusitis (Acute) Elevated troponin (Acute) Influenza A (Acute) Acute sinusitis (Acute) CKD stage 3b, GFR 30-44 ml/min (Acute) Influenza A (Acute) Cough (Acute) URI (upper respiratory infection) (Acute) Abdominal pain (Acute) Diarrhea (Acute) Atypical migraine (Acute) Otalgia, right ear (Acute) Acute otitis media of right ear with perforated tympanic membrane (Acute) Non-ST elevation [place] (NSTEMI) (Acute) Chronic kidney disease, stage III (moderate) (Acute) Hypermagnesemia (Acute) Acute hypokalemia (Acute) Ground glass opacity present on imaging of lung (Acute) Elevated troponin (Acute) CATIE (acute kidney injury) (Acute) Restrictive lung disease secondary to obesity (Acute) Allergic asthma (Acute) intermittent, controlled Dyspnea (Acute) Diarrhea (Acute) Congestive heart failure (Chronic) Sick euthyroidism (Acute) Carpal tunnel syndrome (Acute) GERD (gastroesophageal reflux disease) (Chronic) Bilateral renal artery stenosis (Acute) Encounter for weight loss counseling (Acute) Pulmonary emboli (Chronic) Arthritis of carpometacarpal (CMC) joint of left thumb (Acute) Avulsion fracture of right talus (Acute 12/30/21) Bilateral carpal tunnel syndrome (Acute) Paresthesia of hand, bilateral (Acute) Abnormal chest CT (Acute) Pulmonary hypertension (Acute) Atypical chest pain (Acute) PSVT (paroxysmal supraventricular tachycardia) (Acute) Acute non-ST elevation myocardial infarction (NSTEMI) (Acute) Elevated troponin I level (Acute) Right upper quadrant abdominal pain (Acute) Chronic heart failure with preserved ejection fraction (Chronic) Restless legs syndrome (Acute) Rhinitis, nonallergic, chronic (Acute) Tendinitis (Acute) Chest pain (Acute) Migraine headache without aura (Acute) Lichen sclerosus (Acute) MARYLOU (obstructive sleep apnea) (Chronic) Migraine with aura and without status migrainosus, not intractable (Acute 02/24/16) Medical History Myocardial infarction 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 Mild intermittent asthma Atherosclerosis of renal artery Heart failure Supraventricular tachycardia Atrial fibrillation Superior mesenteric artery stenosis (~03/10/22) see CTA abdomen and pelivs: 80% narrowing of SMA origin Renal artery stenosis (~03/10/22) right renal artery stenosis per CTA abomen/pelvis Hx of supraventricular tachycardia Infiltrate of lower lobe of left lung present on imaging study Acute non-ST elevation myocardial infarction (NSTEMI) COVID-19 Left lateral epicondylitis Arthritis of carpometacarpal (CMC) joint of left thumb Left wrist pain CHI (closed head injury) Acute bronchitis Non-ST elevation [place] (NSTEMI) Insomnia Asthma Migraine Overweight Endometriosis Depression Surgical History History of radiofrequency ablation (RFA) procedure for cardiac arrhythmia Hx of tubal ligation History of partial hysterectomy Family History Daughter Migraines Mother Hypertension Father Heart disease Social History Smoking/Tobacco Use Status: Never Smoking risk assessment performed?: Yes Alcohol Intake: never Drug use: Never Substance use type: does not use Housing: house Current gender identity: female Do you feel safe at home: Yes Do you feel safe in your relationship?: Yes Female Reproductive History Menstrual Menopause type: surgical History History 2 Para 2 Hx # Term Pregnancies Multiple births Hx # Pregnancies Ectopic pregnancies AB induced Hx Number of Living Children AB spontaneous Time Spent with Patient Time Spent with Patient: 45-69 minutes Time was spent: preparing to see the patient(eg.review tests), obtaining and/or reviewing separately otained hiistory, ordering medications,tests, procedures, referring, communicating with other health director of primary care, indepentently int erpreting results, counseling the patient and care coordination
--- NOTE | 2024-04-24 09:55 | PDOC.CMDIS ---
Date of service: 04/24/24 Time of Service: 09:56 LACE Index Scoring Tool Questions: Length of Stay (in days): 4 - 6 Was the patient admitted via the E.D.?: Yes Comorbidities: Previous M.I. and Liver or Renal Disease E.D. Visits: 5 Answers: Total Score: 16 Risk of Readmission: High Risk Care Management Discharge Plan Reason for Hospitalization: Flu - Discharge Plan: Indira is discharged home today with no new services. She will f/u with her PCP and continue per her plan of care. Indira will drive herself home today. She feels comfortable with this plan. Indira will be given a Return to Work note. Patient/Family Education Needs: Review of discharge instructions, activity, limitations and discuss Ask me 3. SDOH Health Related Social Needs: No Data to Display
[2024-04-24 10:00] LABS: Lyme Ab w Rflx to Lyme Confirm Negative (Negative)
--- NOTE | 2024-04-24 10:02 | PT.INIE ---
PT Notes Visit Reasons: nausea / face injury Inpatient Physical Therapy Evaluation Date: 04/24/2024 Referring Doctor: Dr Loving PT Orders: PT CONSULT: PT evaluation Precautions: Droplet, FLU A Patient Profile/Admitting Diagnosis: Pt is a 54yo female presented to ED on 04/20/24 with 2 week h/o rhinitis, and productive cough . On day prior to presentation,pt developed N/V/ D and sustained a fall striking her head on the toilet seat.. Pt workup in ED was (+) for Influenza A. Pt also with elevated Troponin felt to be likely Type II NSTEMI d/t ischemic demand and dehydration. Pt treated with Tamiflu and Augmentin, IV Fluids d/t dehydration and hypotension. No further elevation in Troponin. PMHX: Acute sinusitis (Acute) CKD stage 3b, GFR 30-44 ml/min (Acute) Influenza A (Acute) Cough (Acute) URI (upper respiratory infection) (Acute) Abdominal pain (Acute) Diarrhea (Acute) Atypical migraine (Acute) Otalgia, right ear (Acute) Acute otitis media of right ear with perforated tympanic membrane (Acute) Non-ST elevation [place] (NSTEMI) (Acute) Chronic kidney disease, stage III (moderate) (Acute) Hypermagnesemia (Acute) Acute hypokalemia (Acute) Ground glass opacity present on imaging of lung (Acute) Elevated troponin (Acute) CATIE (acute kidney injury) (Acute) Restrictive lung disease secondary to obesity (Acute) Allergic asthma (Acute) intermittent, controlledDyspnea (Acute) Diarrhea (Acute) Congestive heart failure (Chronic) Sick euthyroidism (Acute) Carpal tunnel syndrome (Acute) GERD (gastroesophageal reflux disease) (Chronic) Bilateral renal artery stenosis (Acute) Encounter for weight loss counseling (Acute) Pulmonary emboli (Chronic) Arthritis of carpometacarpal (CMC) joint of left thumb (Acute) Avulsion fracture of right talus (Acute 12/30/21) Bilateral carpal tunnel syndrome (Acute) Paresthesia of hand, bilateral (Acute) Abnormal chest CT (Acute) Pulmonary hypertension (Acute) Atypical chest pain (Acute) PSVT (paroxysmal supraventricular tachycardia) (Acute) Acute non-ST elevation myocardial infarction (NSTEMI) (Acute) Elevated troponin I level (Acute) Right upper quadrant abdominal pain (Acute) Chronic heart failure with preserved ejection fraction (Chronic) Restless legs syndrome (Acute) Rhinitis, nonallergic, chronic (Acute) Tendinitis (Acute) Chest pain (Acute) Migraine headache without aura (Acute) Lichen sclerosus (Acute) MARYLOU (obstructive sleep apnea) (Chronic) Migraine with aura and without status migrainosus, not intractable (Acute 02/24/16) Medical History Myocardial infarction 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 Mild intermittent asthma Atherosclerosis of renal artery Heart failure Supraventricular tachycardia Atrial fibrillation Superior mesenteric artery stenosis (~03/10/22) see CTA abdomen and pelivs: 80% narrowing of SMA originRenal artery stenosis (~03/10/22) right renal artery stenosis per CTA abomen/pelvisHx of supraventricular tachycardia Infiltrate of lower lobe of left lung present on imaging study Acute non-ST elevation myocardial infarction (NSTEMI) COVID-19 Left lateral epicondylitis Arthritis of carpometacarpal (CMC) joint of left thumb Left wrist pain CHI (closed head injury) Acute bronchitis Non-ST elevation [place] (NSTEMI) Insomnia Asthma Migraine Overweight Endometriosis Depression Surgical History History of radiofrequency ablation (RFA) procedure for cardiac arrhythmia Hx of tubal ligation History of partial hysterectomy Social History/Home Situation: lives with in a multilevel home with 5 steps to enter. Pt is Independent with all aspects of ADL, meal prep, shopping, home management, . 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 Equipment Owned/DME: none Subjective: Pt reports she is feeling much better and looking forward to going home today. She reports the doctor is working on the paperwork now. Objective: [] General Observation: Female with ecchymotic right orbit presented sidelying in bed , Independently transitioned to sit at EOB . Pt with productive cough. Mental Status: A+Ox4, cooperative able to follow all instructions. Pt agreeable to participate in assessment. Pain:denies Vital Signs: on RA sats 95% after ambulation 94% Monitored via telemetry throughout ROM: Right Upper Extremity:WNL Left Upper Extremity:WNL Right Lower Extremity:WNL Left Lower Extremity:WNL Strength: Right Upper Extremity:5/5 Left Upper Extremity: 5/5 Right Lower Extremity: 5/5 Left Lower Extremity: 5/5 Sensation: intact Bed Mobility/Transfers: Independent Gait: ambulate 500 feet without AD independently level surfaces including directional changes without LOB , dizziness,or pain Balance: Static Sitting: Normal Dynamic Sitting:Normal Static Standing:Normal Dynamic Standing: Normal Special Tests: 4 STAGE BALANCE TEST: Feet together __>10__ seconds 1/2 Stance ___>10____ seconds Tandem stance __>10__seconds Single leg stance left__10__seconds, right_10___seconds Mobility Limitations Standardized Measure [facility] 6 clicks Basic Mobility Inpatient Short Form: Raw Score: 24 CMS Score: 0% deficit Informed Consent/Education: Patient instructed in purpose of PT consult and plan of care. Assessment: Patient is a 54 year old female referred to physical therapy services with the diagnosis of Influenza A. Pt now demonstrates [place] with all aspects of functional mobility including transfers, ambuation and stair performance without assistance and without assistive device. Pt noted slight SOB after ambulating 500 feet and performing FOS with 1 rail while wearing a mask. She denied lightheadedness or dizziness throughout session. Pt scored 24/24 on [facility] mobility short form indicating no deficits. No further skilled PT indicated while inpatient or as outpatient. Patient is assessed as a Low [id number] complexity based on the following: History: Pt is 54 yo female presenting with complex past medical history as stated above Examination: pt demonstrates dyspnea with exertion and limited activity tolerance related to prolonged illness. Presentation: stable Decision Making: low Goals: N/A evaluation only Plan of Care/Treatment Plan: Evaluation only DISCHARGE RECOMMENDATIONS: Home with no services TREATMENT CODE/TIME:[id number] x 21 mins [id number]
--- NOTE | 2024-04-24 10:52 | NUR.NOTE ---
patient discharging to home, no needs, given work note, given d/c paperwork with PCP f/u appointment, discussed medications at discharge, PIVs removed, driving self homeNursing Note:
[2024-04-24 22:47] LABS: Campylobacter PCR Negative (Negative); Salmonella PCR Negative (Negative); Shiga Toxin PCR Negative (Negative); Shigella/Enteroinvasive Ecoli Negative (Negative)
[2024-04-26 22:51] LABS: Anaplasma phagocytophilum Negative (Negative); B. miyamotoi PCR Negative (Negative); Babesia divergens/MO-1 Negative (Negative); Babesia duncani Negative (Negative); Babesia microti Negative (Negative); Ehrlichia chaffeensis Negative (Negative); Ehrlichia ewingii/canis Negative (Negative); Ehrlichia muris eauclairensis Negative (Negative)
== END 2024-04-24 11:13 | disposition home or self-care (01) | DRG 194 ==
LOC: ER 04-20 04:42 → EDHOLD 04-20 04:50 → ICU 04-20 15:12 → MS 04-22 22:18
PROVIDERS: Admitting Provider Student in an Organized Health Care Education/Training Program; Emergency Provider Student in an Organized Health Care Education/Training Program; PCP Physician Assistant; Responsible Provider Hospitalist; Visit Provider Student in an Organized Health Care Education/Training Program
DX: J10.1 Influenza due to other identified influenza virus with other respiratory manifestations (principal); I47.10 Supraventricular tachycardia, unspecified; I50.32 Chronic diastolic (congestive) heart failure; J45.20 Mild intermittent asthma, uncomplicated; I27.20 Pulmonary hypertension, unspecified; N18.32 Chronic kidney disease, stage 3b; R00.1 Bradycardia, unspecified; I70.1 Atherosclerosis of renal artery; J01.80 Other acute sinusitis; R74.8 Abnormal levels of other serum enzymes; E07.81 Sick-euthyroid syndrome; K21.9 Gastro-esophageal reflux disease without esophagitis; G47.33 Obstructive sleep apnea (adult) (pediatric); I95.9 Hypotension, unspecified; I25.2 Old myocardial infarction; Z86.711 Personal history of pulmonary embolism; Z79.01 Long term (current) use of anticoagulants; E78.00 Pure hypercholesterolemia, unspecified; R05.3 Chronic cough; R11.2 Nausea with vomiting, unspecified; G43.009 Migraine without aura, not intractable, without status migrainosus; E86.0 Dehydration
CPT/HCPCS: 00123; 36415; 80048; 80053; 82805; 83690; 85027; 87505; 87637; 87798; 93005; 96361; 96365; 96366; 96375; 97161; 99285; 70450; 70486; 71045; 72125; 82607; 82746; 83880; 84439; 84443; 84484; 85025; 85379; 85610; 85730; 86618; 93010; 93306; 94760; 99223; 99232; 99233; 99239; J1815; J2405; J3490

== ENCOUNTER 2024-07-05 09:07 | Outpatient (REF) | payer BC, SELFPAY ==
[2024-07-05 15:33] LABS: HCT 45.2 % (36.0-46.0); HGB 14.7 g/dL (11.2-15.7); MCH 32.3 pg (27.0-33.0); MCHC 32.5 % (32.0-36.0); MCV 99 fL (80-95); Platelet Count 266 10^3/uL (130-400); RBC 4.55 10^6/uL (3.93-5.22); RDW 12.6 % (11.7-14.6); RDW-SD 46.9 fL; WBC 4.62 10^3/uL (4.4-10.8)
[2024-07-05 17:28] LABS: Anion Gap 12.9 mmol/L (3-11); BUN 16 mg/dL (7-18); CO2 21.1 mmol/L (21.0-32.0); CREATININE 1.3 mg/dL (0.55-1.02); Calcium 9.6 mg/dL (8.5-10.1); Chloride 110 mmol/L (98-107); Estimated GFR 48.56 (mL/min/1.73m2); FREE T4 0.95 ng/dL (0.76-1.46); Glucose 92 mg/dL (74-106); Potassium 4.7 mmol/L (3.5-5.1); Sodium 144 mmol/L (136-145); TSH 2.46 uIU/mL (0.36-3.74)
[2024-07-05 17:39] LABS: Iron 105 ug/dL (50-170); Total Iron Binding Capacity 314 ug/dL (250-450); Transferrin Sat 33 % (15-50)
[2024-07-05 17:52] LABS: Ferritin 96 ng/mL (8-252)
== END 2024-07-05 09:08 | disposition home or self-care (01) ==
LOC: NCHCN 09:07
PROVIDERS: PCP Physician Assistant; Visit Provider Physician Assistant
DX: R53.83 Other fatigue (principal); I50.9 Heart failure, unspecified
CPT/HCPCS: 80048; 85027; 82728; 83540; 83550; 84439; 84443

== ENCOUNTER 2024-08-30 15:01 | Emergency (ER) | payer BC, SELFPAY ==
[2024-08-30] VITALS (61 sets, daily range): BP systolic 89–130; BP diastolic 30–82; PULSE 52–74; RESP 8–23; TEMP 36.9; O2SAT 95–100
--- NOTE | 2024-08-30 15:00 | RT.EKG_ITS ---
APPROVED REPORT Exam: Resting ECG Reason for Exam: chest pain Patient Location: E HR:66 bpm ECG Measurements Heart Rate 66 AXIS ND 173 P 44 QRSd 98 QRS 46 QT 431 T 46 QTc 453 Conclusion Sinus rhythm [address] depressions consistent with prior
[2024-08-30] MEDS: Aspirin 81 MG CHEW 324 MG CH (15:21)
[2024-08-30 15:43] LABS: Abs Immature Grans 0.02 10^3/uL (0.0-0.06); Absolute Basophil Count 0.02 10^3/uL (0.0-0.2); Absolute Eosinophil Count 0.21 10^3/uL (0.0-0.7); Absolute Lymphocyte Count 1.89 10^3/uL (1.2-3.4); Absolute Monocyte Count 0.48 10^3/uL (0.1-0.8); Absolute Neutrophil Count 3.43 10^3/uL (1.2-6.7); Basophils % 0.3 %; Eosinophils % 3.5 %; HCT 42.8 % (36.0-46.0); HGB 14.3 g/dL (11.2-15.7); Immature Grans % 0.3 %; Lymphocytes % 31.2 %; MCH 32.3 pg (27.0-33.0); MCHC 33.4 % (32.0-36.0); MCV 97 fL (80-95); MPV 10.4 fL (8.0-11.0); Monocytes % 7.9 %; Neutrophils % 56.8 %; Platelet Count 221 10^3/uL (130-400); RBC 4.43 10^6/uL (3.93-5.22); RDW 11.8 % (11.7-14.6); RDW-SD 42.2 fL; WBC 6.05 10^3/uL (4.4-10.8)
[2024-08-30 16:06] LABS: ALT 26 U/L (14-59); AST 18 U/L (15-37); Alkaline Phosphatase 56 U/L (46-116); Anion Gap 11.7 mmol/L (3-11); BUN 21 mg/dL (7-18); Bilirubin, Total 0.3 mg/dL (0.2-1.0); CO2 22.3 mmol/L (21.0-32.0); CREATININE 1.6 mg/dL (0.55-1.02); Calcium 8.8 mg/dL (8.5-10.1); Chloride 106 mmol/L (98-107); Estimated GFR 37.85 (mL/min/1.73m2); Glucose 120 mg/dL (74-106); Lipase 42 U/L (<78); NT-proBNP 1056 pg/mL (<300); Potassium 4.3 mmol/L (3.5-5.1); Sodium 140 mmol/L (136-145); Total Protein 7.5 g/dL (6.4-8.2)
[2024-08-30 16:19] LABS: Troponin I 316 ng/L (<or=51)
[2024-08-30 17:34] LABS: Troponin I 315 ng/L (<or=51)
[2024-08-30 19:25] LABS: Troponin I 308 ng/L (<or=51)
--- NOTE | 2024-08-30 21:33 | W.ED.GENAD ---
Discharge Plan Disposition Patient Disposition: Home Discharge Details Clinical Impression: Chronic chest pain Primary Care Provider: Polo Pearce ED Provider: Jasen Montes Home Meds and New Rx's Prescriptions: No Action ropinirole 1 mg tablet 1 mg PO BID Rx Instructions: @ 1600 and 2100 Wegovy 0.5 mg/0.5 mL pen injector 0.5 mg subcut QWEEK Rx Instructions: administer weeks 5 through 8 of therapy Ubrelvy 50 mg tablet 50 mg PO ONCE PRN Rx Instructions: as a single dose; may repeat once in >=2 hours after first dose if needed topiramate [Topamax] 100 mg tablet 100 mg PO QHS Qty: 90 3RF Aimovig Autoinjector 140 mg/mL auto-injector 140 mg subcut QMONTH Qty: 1 11RF fluticasone propionate [Flonase Allergy Relief] 9.9 ML spray,suspension 2 spray NS DAILY PRN duloxetine [Cymbalta] 60 mg capsule,delayed release(DR/EC) 60 mg PO DAILY Qty: 30 2RF albuterol sulfate 90 mcg/actuation HFA aerosol inhaler 2 puff inhalation Q4H PRN loratadine [Allergy Relief (loratadine)] 10 mg tablet 10 mg PO DAILY PRN nitroglycerin 0.4 mg tablet, sublingual 0.4 mg sublingual Q5M PRN Rx Instructions: do not exceed 3 doses per episode clobetasol 0.05 % ointment 1 applic topical DIRECTED PRN apixaban 5 mg tablet 5 mg PO BID Jardiance 10 mg tablet 10 mg PO DAILY ranolazine 1,000 mg tablet extended release 12 hr 1,000 mg PO BID montelukast 10 mg tablet 10 mg PO DAILY PRN gabapentin 600 mg tablet 600 mg PO QHS Qty: 90 3RF melatonin 10 mg capsule 10 mg PO HS PRN torsemide 20 mg Tablet 20 mg PO DAILY Qty: 90 0RF metolazone 2.5 mg tablet 2.5 mg PO PRN PRNQty: 0 0RF potassium chloride 20 mEq tablet extended release 40 meq PO BID Patient Comments: TAKE TWO TABLETS BY MOUTH TWICE A DAY atorvastatin 40 mg tablet 40 mg PO QPM Patient Comments: TAKE ONE TABLET BY MOUTH EVERY EVENING omeprazole 40 mg capsule,delayed release(DR/EC) 40 mg PO DAILY Patient Comments: TAKE ONE CAPSULE BY MOUTH EVERY DAY Discharge Instructions Additional Instructions: WORK UP TODAY, INCLUDING LABS AND EKG ARE STABLE AND WERE REVIEWED WITH CARDIOLOGY AT [facility] THEY ARE NO RECOMMENDING CHANGE IN MEDICATION OR TREATMENT PLAN TYLENOL FOR PAIN NEEDED AND KEEP FOLLOW UP APPOINTMENT HPI General Date/Time Provider Initiated Documentation: 08/30/24 15:12. Limitations to Documentation: no limitations. Information obtained by: patient. HPI Narrative: 54-year-old female with past history history CKD, NSTEMI, chronic chest pain presents for evaluation of chest pain. She reports that over the last 2 weeks she has had increasing frequency of chest pain. She states that the pain comes intermittently, last for 5 minutes resolves without any intervention. Does not change with nitroglycerin. She reports that sharp pain under her left breast with pain in her jaw as well. She reports that it hurts to take a deep breath when she has the pain, but she is not short of breath. She states that she has had similar symptoms many times and has been worked up extensively. She states that she does not have any stents. They cannot find what is wrong with her and that she is been referred to a different jigsawyer in [place]. Related Data Home Medications ?Medication ?Instructions ?Recorded ?Confirmed fluticasone propionate 50 2 spray NS DAILY PRN 12/23/16 08/30/24 mcg/actuation nasal spray,suspension (Flonase Allergy Relief) ropinirole 1 mg tablet 1 mg PO BID 06/12/20 08/30/24 duloxetine 60 mg capsule,delayed 60 mg PO DAILY #30 mg 08/19/20 08/30/24 release (Cymbalta) albuterol sulfate 90 mcg/actuation 2 puff inhalation Q4H PRN 05/30/21 08/30/24 aerosol inhaler loratadine 10 mg tablet (Allergy 10 mg PO DAILY PRN 05/30/21 08/30/24 Relief (loratadine)) nitroglycerin 0.4 mg sublingual 0.4 mg sublingual Q5M PRN 09/25/21 08/30/24 tablet clobetasol 0.05 % topical ointment 1 applic topical DIRECTED PRN 08/28/22 08/30/24 melatonin 10 mg capsule 10 mg PO HS PRN 04/16/23 08/30/24 apixaban 5 mg tablet 5 mg PO BID 08/13/23 08/30/24 empagliflozin 10 mg tablet 10 mg PO DAILY 08/13/23 08/30/24 (Jardiance) ranolazine 1,000 mg 1,000 mg PO BID 08/13/23 08/30/24 tablet,extended release,12 hr montelukast 10 mg tablet 10 mg PO DAILY PRN 09/16/23 08/30/24 metolazone 2.5 mg tablet 2.5 mg PO PRN PRN #0 tabs 09/25/23 08/30/24 torsemide 20 mg tablet 20 mg PO DAILY #90 tabs 09/25/23 08/30/24 erenumab-aooe 140 mg/mL 140 mg subcut QMONTH #1 mL 01/19/24 08/30/24 subcutaneous auto-injector (Aimovig Autoinjector) semaglutide (weight loss) 0.5 0.5 mg subcut QWEEK 01/19/24 08/30/24 mg/0.5 mL subcutaneous pen injector (Wegovy) topiramate 100 mg tablet (Topamax) 100 mg PO QHS #90 tab-caps 01/19/24 08/30/24 ubrogepant 50 mg tablet (Ubrelvy) 50 mg PO ONCE PRN 01/19/24 08/30/24 gabapentin 600 mg tablet 600 mg PO QHS #90 tabs 03/14/24 08/30/24 atorvastatin 40 mg tablet 40 mg PO QPM 04/21/24 08/30/24 potassium chloride 20 mEq 40 meq PO BID 04/21/24 08/30/24 tablet,extended release omeprazole 40 mg capsule,delayed 40 mg PO DAILY 04/22/24 08/30/24 release Previous Rx's ?Medication ?Instructions ?Recorded duloxetine 60 mg capsule,delayed 60 mg PO DAILY #30 mg 08/19/20 release (Cymbalta) metolazone 2.5 mg tablet 2.5 mg PO PRN PRN #0 tabs 09/25/23 torsemide 20 mg tablet 20 mg PO DAILY #90 tabs 09/25/23 erenumab-aooe 140 mg/mL 140 mg subcut QMONTH #1 mL 01/19/24 subcutaneous auto-injector (Aimovig Autoinjector) topiramate 100 mg tablet (Topamax) 100 mg PO QHS #90 tab-caps 01/19/24 gabapentin 600 mg tablet 600 mg PO QHS #90 tabs 03/14/24 Allergies Allergy/AdvReac Type Severity Reaction Status Date / Time clobetasol AdvReac Intermediate Skin Rash Verified 08/30/24 16:10 codeine AdvReac Mild Not able Verified 08/30/24 16:10 to sleep ibuprofen AdvReac migraines Unverified 08/30/24 16:10 environmental Allergy Mild sneezing/triggers Uncoded 08/30/24 16:10 her asthma General Stated Complaint: Chest Pain MIKAELA: 3 Exam Narrative Exam Narrative: Review of Systems: All systems reviewed & are unremarkable except as noted in HPI and below Well-developed, no acute distress NCAT PERRL, normal conjunctiva RRR no murmur Unlabored respiratory effort clear bilaterally Nondistended abdomen soft nontender Extremities w/o edema No rashes or lesions. no focal neurologic deficits Appropriate mood and affect Course Vital Signs Vital signs: Vital Signs Temperature 36.9 C 08/30/24 15:02 Pulse 69 08/30/24 15:02 Respiratory Rate 18 08/30/24 15:02 Blood Pressure 130/82 08/30/24 15:02 Pulse Oximetry 96 08/30/24 15:02 Temperature 36.9 C 08/30/24 15:02 Temperature Source Oral 08/30/24 15:02 Pulse 55 L 08/30/24 19:27 Pulse 55 L 08/30/24 19:21 Respiratory Rate 13 08/30/24 19:27 Respiratory Effort Normal 08/30/24 15:32 Respiratory Depth Normal 08/30/24 15:32 Respiratory Pattern Normal 08/30/24 15:32 Blood Pressure 101/48 L 08/30/24 19:27 Blood Pressure Mean 61 08/30/24 19:21 Blood Pressure Position Sitting 08/30/24 15:02 Pulse Oximetry 98 08/30/24 19:27 Oxygen Delivery Method Room Air 08/30/24 15:02 Oxygen Flow Rate 0 08/30/24 15:02 Pain Level 8 08/30/24 15:32 Lab/Test Results Lab/Test Results: Laboratory Tests Range/Units 08/30/24 08/30/24 08/30/24 15:35 16:43 18:38 WBC (4.4-10.8) 10^3/uL 6.05 RBC (3.93-5.22) 10^6/uL 4.43 Hgb (11.2-15.7) g/dL 14.3 Hct (36.0-46.0) % 42.8 MCV (80-95) fL 97 H MCH (27.0-33.0) pg 32.3 MCHC (32.0-36.0) % 33.4 RDW (11.7-14.6) % 11.8 Plt Count (130-400) 10^3/uL 221 MPV (8.0-11.0) fL 10.4 Immature Gran % % 0.3 Neutrophils % % 56.8 Lymphocytes % % 31.2 Monocytes % % 7.9 Eosinophils % % 3.5 Basophils % % 0.3 Nucleated RBC % (0.0-0.3) % 0.0 Absolute Neutrophils (1.2-6.7) 10^3/uL 3.43 Absolute Lymphocytes (1.2-3.4) 10^3/uL 1.89 Absolute Monocytes (0.1-0.8) 10^3/uL 0.48 Absolute Eosinophils (0.0-0.7) 10^3/uL 0.21 Absolute Basophils (0.0-0.2) 10^3/uL 0.02 Sodium (136-145) mmol/L 140 Potassium (3.5-5.1) mmol/L 4.3 Chloride (98-107) mmol/L 106 Carbon Dioxide (21.0-32.0) mmol/L 22.3 Anion Gap (3-11) mmol/L 11.7 H BUN (7-18) mg/dL 21 H Creatinine (0.55-1.02) mg/dL 1.6 H Est GFR (CKD-EPI 2020) (mL/min/1.73m2) 37.85 Glucose (74-106) mg/dL 120 H Calcium (8.5-10.1) mg/dL 8.8 Total Bilirubin (0.2-1.0) mg/dL 0.3 AST (15-37) U/L 18 ALT (14-59) U/L 26 Alkaline Phosphatase (46-116) U/L 56 Troponin I (<or=51) ng/L 316 H* 315 H* 308 H* NT-Pro-B Natriuret Pep (<300) pg/mL 1056 H Total Protein (6.4-8.2) g/dL 7.5 Albumin (3.4-5.0) g/dL 4.0 Lipase (<78) U/L 42 Medical Decision Making Emergent evaluation of chest pain. Patient has history of NSTEMI and has been evaluated extensively by cardiology previously. EKG reviewed and independently interpreted today. Sinus [address] segment changes, Consistent with prior. Aspirin given. I have not given nitroglycerin with the patient prior he did not have any change in her pain. In addition she did have some slightly low blood pressures which seem to be stable for her. Initial differential includes unstable angina, ACS, chronic chest pain. Patient had lab work obtained, no leukocytosis or anemia. No significant electrolyte derangement. Renal function is at her baseline. The patient's troponin was noted to be slightly elevated. She was 100s. This was stable of her repeated values. Based on her history and prior cardiac workup, I did discuss with [facility] cardiology. They have full access to the patient's provider evaluation. They report that the patient's chest pain is not cardiac in origin and they do not recommend treating this as unstable angina or ACS. They recommend pain control as needed and continued follow-up with the specialist he reports that in [place]. There evaluation is like to have diagnoses of chronic anxiety at this time. Patient was updated on the plan for discharge, Her reassuring emergency department workup. At this time she is chest pain-free and feels comfortable with going home. PFSH All Active Problems (Updated 08/30/24 @ 19:20 by Jasen Montes MD) Chronic chest pain (Acute) Migraine (Chronic) Hypotension (Acute) Sinusitis (Acute) Elevated troponin (Acute) Influenza A (Acute) Acute sinusitis (Acute) CKD stage 3b, GFR 30-44 ml/min (Acute) Cough (Acute) URI (upper respiratory infection) (Acute) Abdominal pain (Acute) Diarrhea (Acute) Atypical migraine (Acute) Otalgia, right ear (Acute) Acute otitis media of right ear with perforated tympanic membrane (Acute) Non-ST elevation PR (NSTEMI) (Acute) Chronic kidney disease, stage III (moderate) (Acute) Hypermagnesemia (Acute) Acute hypokalemia (Acute) Ground glass opacity present on imaging of lung (Acute) Elevated troponin (Acute) CATIE (acute kidney injury) (Acute) Restrictive lung disease secondary to obesity (Acute) Allergic asthma (Acute) intermittent, controlled Dyspnea (Acute) Diarrhea (Acute) Congestive heart failure (Chronic) Sick euthyroidism (Acute) Carpal tunnel syndrome (Acute) GERD (gastroesophageal reflux disease) (Chronic) Bilateral renal artery stenosis (Acute) Encounter for weight loss counseling (Acute) Pulmonary emboli (Chronic) Arthritis of carpometacarpal (CMC) joint of left thumb (Acute) Avulsion fracture of right talus (Acute 12/30/21) Bilateral carpal tunnel syndrome (Acute) Paresthesia of hand, bilateral (Acute) Abnormal chest CT (Acute) Pulmonary hypertension (Acute) Atypical chest pain (Acute) PSVT (paroxysmal supraventricular tachycardia) (Acute) Acute non-ST elevation myocardial infarction (NSTEMI) (Acute) Elevated troponin I level (Acute) Right upper quadrant abdominal pain (Acute) Chronic heart failure with preserved ejection fraction (Chronic) Restless legs syndrome (Acute) Rhinitis, nonallergic, chronic (Acute) Tendinitis (Acute) Chest pain (Acute) Migraine headache without aura (Acute) Lichen sclerosus (Acute) MARYLOU (obstructive sleep apnea) (Chronic) Migraine with aura and without status migrainosus, not intractable (Acute 02/24/16) Medical History Myocardial infarction 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 Mild intermittent asthma Atherosclerosis of renal artery Heart failure Supraventricular tachycardia Atrial fibrillation Superior mesenteric artery stenosis (~03/10/22) see CTA abdomen and pelivs: 80% narrowing of SMA origin Renal artery stenosis (~03/10/22) right renal artery stenosis per CTA abomen/pelvis Hx of supraventricular tachycardia Infiltrate of lower lobe of left lung present on imaging study Acute non-ST elevation myocardial infarction (NSTEMI) COVID-19 Left lateral epicondylitis Arthritis of carpometacarpal (CMC) joint of left thumb Left wrist pain CHI (closed head injury) Acute bronchitis Non-ST elevation PR (NSTEMI) Insomnia Asthma Overweight Endometriosis Depression Surgical History History of radiofrequency ablation (RFA) procedure for cardiac arrhythmia Hx of tubal ligation History of partial hysterectomy Family History Daughter Migraines Mother Hypertension Father Heart disease Social History Smoking/Tobacco Use Status: Never Smoking risk assessment performed?: Yes Alcohol Intake: never Drug use: Never Substance use type: does not use Housing: house Current gender identity: female Do you feel safe at home: Yes Do you feel safe in your relationship?: Yes Female Reproductive History Menstrual Menopause type: surgical History History 2 Para 2 Hx # Term Pregnancies Multiple births Hx # Pregnancies Ectopic pregnancies AB induced Hx Number of Living Children AB spontaneous
== END 2024-08-30 19:28 | disposition home or self-care (01) ==
PROVIDERS: Emergency Provider Emergency Medicine; PCP Physician Assistant
DX: R07.9 Chest pain, unspecified (principal); R68.84 Jaw pain; Z86.79 Personal history of other diseases of the circulatory system
CPT/HCPCS: 99284 ×2; 36415; 80053; 83690; 93005; 83880; 84484; 85025; 93010

== ENCOUNTER 2024-10-13 11:28 | Emergency (ER) | payer BC, SELFPAY ==
[2024-10-13] VITALS (58 sets, daily range): BP systolic 100–125; BP diastolic 45–81; PULSE 55–62; RESP 8–23; TEMP 36; O2SAT 88–98
--- NOTE | 2024-10-13 11:15 | RT.EKG_ITS ---
APPROVED REPORT Exam: Resting ECG Reason for Exam: dyspnea Patient Location: E HR:59 bpm ECG Measurements Heart Rate 59 AXIS MT 171 P 27 QRSd 83 QRS 50 QT 393 T 9 QTc 388 Conclusion Sinus bradycardia...rate< 60 Left atrial enlargement...P, P'>60mS, <-0.15mV V1 No STEMI
--- NOTE | 2024-10-13 11:30 | DI.RAD_ITS ---
Exam(s) XR PORTABLE CHEST AP EXAM: XR PORTABLE CHEST AP CLINICAL HISTORY: shortness of breath. TECHNIQUE: 2D digital imaging was performed. COMPARISON: CR,XR XR CHEST 1V IN DI DEPT from 04/20/2024 FINDINGS: Single AP portable view. Heart size is upper normal. The mediastinum is not widened. Slightly increased lung markings bilaterally may indicate pulmonary venous hypertension although markings is somewhat exaggerated by portable technique. There is no evidence of airspace pulmonary edema and there are no pleural effusions. IMPRESSION: Mild increased markings which may be exaggerated by portable technique. Recommend nonportable PA and lateral views when clinically possible. There is no airspace pulmonary edema and there are no obvious pleural effusions. DATA REPOSITORY: RADIATION DOSE DELIVERED:
[2024-10-13 12:13] LABS: Abs Immature Grans 0.02 10^3/uL (0.0-0.06); HCT 41.4 % (36.0-46.0); HGB 13.8 g/dL (11.2-15.7); Immature Grans % 0.3 %; MCH 32.7 pg (27.0-33.0); MCHC 33.3 % (32.0-36.0); MCV 98 fL (80-95); MPV 10.6 fL (8.0-11.0); Platelet Count 234 10^3/uL (130-400); RBC 4.22 10^6/uL (3.93-5.22); RDW 13.1 % (11.7-14.6); RDW-SD 46.7 fL; WBC 5.78 10^3/uL (4.4-10.8)
[2024-10-13 12:26] LABS: INR 1.0 (0.9-1.1); PTT Activated 26.9 sec (20.6-30.2); Prothrombin Time 10.3 sec (9.1-11.1)
--- NOTE | 2024-10-13 12:36 | W.ED.GENAD ---
Discharge Plan Disposition Patient Disposition: Home Discharge Details Clinical Impression: Chest pain Primary Care Provider: Polo Pearce ED Provider: Taran Tellez Home Meds and New Rx's Prescriptions: New aspirin 81 mg tablet 81 mg PO DAILY Qty: 90 3RF Continued ropinirole 1 mg tablet 1 mg PO BID Rx Instructions: @ 1600 and 2100 Wegovy 0.5 mg/0.5 mL pen injector 0.5 mg subcut QWEEK Rx Instructions: administer weeks 5 through 8 of therapy Ubrelvy 50 mg tablet 50 mg PO ONCE PRN Rx Instructions: as a single dose; may repeat once in >=2 hours after first dose if needed topiramate [Topamax] 100 mg tablet 100 mg PO QHS Qty: 90 3RF Aimovig Autoinjector 140 mg/mL auto-injector 140 mg subcut QMONTH Qty: 1 11RF fluticasone propionate [Flonase Allergy Relief] 9.9 ML spray,suspension 2 spray NS DAILY PRN duloxetine [Cymbalta] 60 mg capsule,delayed release(DR/EC) 60 mg PO DAILY Qty: 30 2RF albuterol sulfate 90 mcg/actuation HFA aerosol inhaler 2 puff inhalation Q4H PRN loratadine [Allergy Relief (loratadine)] 10 mg tablet 10 mg PO DAILY PRN nitroglycerin 0.4 mg tablet, sublingual 0.4 mg sublingual Q5M PRN Rx Instructions: do not exceed 3 doses per episode apixaban 5 mg tablet 5 mg PO BID Jardiance 10 mg tablet 10 mg PO DAILY ranolazine 1,000 mg tablet extended release 12 hr 1,000 mg PO BID montelukast 10 mg tablet 10 mg PO DAILY PRN gabapentin 600 mg tablet 600 mg PO QHS Qty: 90 3RF melatonin 10 mg capsule 10 mg PO HS PRN torsemide 20 mg Tablet 20 mg PO DAILY Qty: 90 0RF metolazone 2.5 mg tablet 2.5 mg PO PRN PRNQty: 0 0RF potassium chloride 20 mEq tablet extended release 40 meq PO BID Patient Comments: TAKE TWO TABLETS BY MOUTH TWICE A DAY atorvastatin 40 mg tablet 40 mg PO QPM Patient Comments: TAKE ONE TABLET BY MOUTH EVERY EVENING omeprazole 40 mg capsule,delayed release(DR/EC) 40 mg PO DAILY Patient Comments: TAKE ONE CAPSULE BY MOUTH EVERY DAY Discharge Instructions Instructions: Chest Pain, Adult ED Additional Instructions: As discussed please keep your previously arranged appointments with cardiology and interventional cardiology. Should your symptoms worsen, develop any new or concerning symptoms please return to the emergency department for further evaluation. HPI General Date/Time Provider Initiated Documentation: 10/13/24 11:32. HPI Narrative: 54-year-old female with multiple medical comorbidities to include CAD, CKD stage III, asthma, pulmonary hypertension, NSTEMI, presents for evaluation of chest pain and pressure. Patient notes that for many weeks she has had intermittent chest pressure, however the past 2 weeks she has developed chest pain which is described as left-sided, nonradiating and associated with worsening cough. She notes that her symptoms are exacerbated after minimal walking, stating she can even walk 50 feet without her symptoms worsening. Denies any associated fever, chills, sputum production, abdominal pain, nausea, vomiting, leg swelling or leg pain, or any other new or concerning symptoms. Related Data Home Medications ?Medication ?Instructions ?Recorded ?Confirmed fluticasone propionate 50 2 spray NS DAILY PRN 12/23/16 10/13/24 mcg/actuation nasal spray,suspension (Flonase Allergy Relief) ropinirole 1 mg tablet 1 mg PO BID 06/12/20 10/13/24 duloxetine 60 mg capsule,delayed 60 mg PO DAILY #30 mg 08/19/20 10/13/24 release (Cymbalta) albuterol sulfate 90 mcg/actuation 2 puff inhalation Q4H PRN 05/30/21 10/13/24 aerosol inhaler loratadine 10 mg tablet (Allergy 10 mg PO DAILY PRN 05/30/21 10/13/24 Relief (loratadine)) nitroglycerin 0.4 mg sublingual 0.4 mg sublingual Q5M PRN 09/25/21 10/13/24 tablet melatonin 10 mg capsule 10 mg PO HS PRN 04/16/23 10/13/24 apixaban 5 mg tablet 5 mg PO BID 08/13/23 10/13/24 empagliflozin 10 mg tablet 10 mg PO DAILY 08/13/23 10/13/24 (Jardiance) ranolazine 1,000 mg 1,000 mg PO BID 08/13/23 10/13/24 tablet,extended release,12 hr montelukast 10 mg tablet 10 mg PO DAILY PRN 09/16/23 10/13/24 metolazone 2.5 mg tablet 2.5 mg PO PRN PRN #0 tabs 09/25/23 10/13/24 torsemide 20 mg tablet 20 mg PO DAILY #90 tabs 09/25/23 10/13/24 erenumab-aooe 140 mg/mL 140 mg subcut QMONTH #1 mL 01/19/24 10/13/24 subcutaneous auto-injector (Aimovig Autoinjector) semaglutide (weight loss) 0.5 0.5 mg subcut QWEEK 01/19/24 10/13/24 mg/0.5 mL subcutaneous pen injector (Wegovy) topiramate 100 mg tablet (Topamax) 100 mg PO QHS #90 tab-caps 01/19/24 10/13/24 ubrogepant 50 mg tablet (Ubrelvy) 50 mg PO ONCE PRN 01/19/24 10/13/24 gabapentin 600 mg tablet 600 mg PO QHS #90 tabs 03/14/24 10/13/24 atorvastatin 40 mg tablet 40 mg PO QPM 04/21/24 10/13/24 potassium chloride 20 mEq 40 meq PO BID 04/21/24 10/13/24 tablet,extended release omeprazole 40 mg capsule,delayed 40 mg PO DAILY 04/22/24 10/13/24 release aspirin 81 mg tablet 81 mg PO DAILY #90 tabs 10/13/24 Previous Rx's ?Medication ?Instructions ?Recorded duloxetine 60 mg capsule,delayed 60 mg PO DAILY #30 mg 08/19/20 release (Cymbalta) metolazone 2.5 mg tablet 2.5 mg PO PRN PRN #0 tabs 09/25/23 torsemide 20 mg tablet 20 mg PO DAILY #90 tabs 09/25/23 erenumab-aooe 140 mg/mL 140 mg subcut QMONTH #1 mL 01/19/24 subcutaneous auto-injector (Aimovig Autoinjector) topiramate 100 mg tablet (Topamax) 100 mg PO QHS #90 tab-caps 01/19/24 gabapentin 600 mg tablet 600 mg PO QHS #90 tabs 03/14/24 aspirin 81 mg tablet 81 mg PO DAILY #90 tabs 10/13/24 Allergies Allergy/AdvReac Type Severity Reaction Status Date / Time clobetasol AdvReac Intermediate Skin Rash Verified 10/13/24 11:34 codeine AdvReac Mild Not able Verified 10/13/24 11:34 to sleep ibuprofen AdvReac migraines Unverified 10/13/24 11:34 environmental Allergy Mild sneezing/triggers Uncoded 10/13/24 11:34 her asthma General Stated Complaint: RespSymp MIKAELA: 3 Review of Systems All systems reviewed & are unremarkable except as noted in HPI and below Exam Narrative Exam Narrative: Gen: A&O NAD But HEENT: NCAT, EOMI, not icteric. External ears normal. No rhinorrhea. Moist mucous membranes. Neck: Supple, full range of motion, no observable masses, No meningeal sign. Lungs: No Respiratory distress. CV: RRR, no edema. Abdomen: Soft, nondistended, No rebound tenderness. MSK: No joint swelling, no redness. Skin: No rashes, petechiae, lesions. Normal color per patient. Neuro: Normal Gait, Grossly intact. Psych: Appropriate for situation. Course Reevaluation(s) Initial Evaluation: Patient is resting reading a book in her stretcher in no acute distress. She notes she feels tired, no current chest pain. Results were reviewed and discussed with the patient and she is agreeable with the plan to discuss for transfer to cardiology at [facility]. Time: 13:15 Reevaluation: On reassessment, patient remains resting comfortably with no acute symptoms. Plan of care discussed with the patient was agreeable to plan for discharge or follow-up with her previously scheduled outpatient follow-ups with [facility], and [facility] interventional cardiology. Time: 14:36 Consultations Consultation #1: Case discussed with transfer center for [facility], with plan for requested transfer for further evaluation by cardiology. Consultation #2: Case discussed with nurse practitioner Dot working with Dr. Kinsey of cardiology [facility], who knows the patient well. They have reviewed the case and findings here today. They state that given her recent catheterization which showed no obstructive lesions, no significant changes in EKG compared to her most recent dated August 2024, and troponins which are relatively at the patient's baseline they do not recommend transfer or any emergent cardiology intervention. We did discuss the need for antiplatelet as a risk factor modification, and they are in agreement that patient should be started on a daily baby aspirin. Otherwise they recommend follow-up with [facility] as previously scheduled for the patient at the end of this month and a follow-up with her interventional list in December of this year. Vital Signs Vital signs: Vital Signs Temperature 36.0 C L 10/13/24 11:30 Pulse 58 L 10/13/24 11:30 Respiratory Rate 18 10/13/24 11:30 Blood Pressure 121/78 10/13/24 11:30 Pulse Oximetry 98 10/13/24 11:30 Temperature 36.0 C L 10/13/24 11:34 Temperature Source Tympanic 10/13/24 11:34 Pulse 58 L 10/13/24 11:34 Respiratory Rate 18 10/13/24 11:34 Respiratory Effort Normal, Non-Labored, Short of Breath 10/13/24 12:31 Respiratory Depth Normal 10/13/24 12:31 Blood Pressure 121/78 10/13/24 11:34 Pulse Oximetry 98 10/13/24 11:34 Lab/Test Results Lab/Test Results: Laboratory Results WBC 5.78 10^3/uL (4.4-10.8) 10/13/24 12:05 RBC 4.22 10^6/uL (3.93-5.22) 10/13/24 12:05 Hgb 13.8 g/dL (11.2-15.7) 10/13/24 12:05 Hct 41.4 % (36.0-46.0) 10/13/24 12:05 MCV 98 fL (80-95) H 10/13/24 12:05 MCH 32.7 pg (27.0-33.0) 10/13/24 12:05 MCHC 33.3 % (32.0-36.0) 10/13/24 12:05 RDW 13.1 % (11.7-14.6) 10/13/24 12:05 Plt Count 234 10^3/uL (130-400) 10/13/24 12:05 MPV 10.6 fL (8.0-11.0) 10/13/24 12:05 Immature Gran % 0.3 % 10/13/24 12:05 Neutrophils % 62.2 % 10/13/24 12:05 Lymphocytes % 26.8 % 10/13/24 12:05 Monocytes % 6.6 % 10/13/24 12:05 Eosinophils % 3.6 % 10/13/24 12:05 Basophils % 0.5 % 10/13/24 12:05 Nucleated RBC % 0.0 % (0.0-0.3) 10/13/24 12:05 Absolute Neutrophils 3.59 10^3/uL (1.2-6.7) 10/13/24 12:05 Absolute Lymphocytes 1.55 10^3/uL (1.2-3.4) 10/13/24 12:05 Absolute Monocytes 0.38 10^3/uL (0.1-0.8) 10/13/24 12:05 Absolute Eosinophils 0.21 10^3/uL (0.0-0.7) 10/13/24 12:05 Absolute Basophils 0.03 10^3/uL (0.0-0.2) 10/13/24 12:05 PT 10.3 sec (9.1-11.1) 10/13/24 12:05 INR 1.0 (0.9-1.1) 10/13/24 12:05 APTT 26.9 sec (20.6-30.2) 10/13/24 12:05 Sodium 141 mmol/L (136-145) 10/13/24 12:05 Potassium 4.4 mmol/L (3.5-5.1) 10/13/24 12:05 Chloride 109 mmol/L (98-107) H 10/13/24 12:05 Carbon Dioxide 22.5 mmol/L (21.0-32.0) 10/13/24 12:05 Anion Gap 9.5 mmol/L (3-11) 10/13/24 12:05 BUN 23 mg/dL (7-18) H 10/13/24 12:05 Creatinine 1.4 mg/dL (0.55-1.02) H 10/13/24 12:05 Est GFR (CKD-EPI 2020) 44.43 (mL/min/1.73m2) 10/13/24 12:05 Glucose 104 mg/dL (74-106) 10/13/24 12:05 Calcium 8.9 mg/dL (8.5-10.1) 10/13/24 12:05 Magnesium 2.1 mg/dL (1.8-2.4) 10/13/24 12:05 Total Bilirubin 0.5 mg/dL (0.2-1.0) 10/13/24 12:05 AST 16 U/L (15-37) 10/13/24 12:05 ALT 25 U/L (14-59) 10/13/24 12:05 Alkaline Phosphatase 54 U/L (46-116) 10/13/24 12:05 Troponin I 346 ng/L (<or=51) H* 10/13/24 13:06 NT-Pro-B Natriuret Pep 2096 pg/mL (<300) H 10/13/24 12:05 Total Protein 7.0 g/dL (6.4-8.2) 10/13/24 12:05 Albumin 3.5 g/dL (3.4-5.0) 10/13/24 12:05 Medical Decision Making Patient presents as above. Presentation is concerning for unstable angina given description of chest pain worsening with minimal exertion. As such high concern for life-threatening pathology such as ACS, CHF exacerbation, pneumonia, less likely PE as patient is anticoagulated. Will obtain screening labs, EKG, POCUS echo, suspect patient will likely require transfer to interventional cardiology for further assessment of her unstable angina. ECG Data Attestation: I personally reviewed and interpreted this ECG (s) as follows: Prior ECG tracings: available for review Interpretation: Sinus bradycardia 59 bpm, normal axis, DC interval 171 ms, QTc 388 ms, there is inferolateral ST depressions, ST elevations or reciprocal changes. As compared to prior EKG dated 04/20/2024, ST depressions in lead III are new. PFSH All Active Problems (Updated 10/13/24 @ 14:38 by Taran Tellez MD) Migraine (Chronic) Hypotension (Acute) Sinusitis (Acute) Elevated troponin (Acute) Influenza A (Acute) Acute sinusitis (Acute) CKD stage 3b, GFR 30-44 ml/min (Acute) Cough (Acute) URI (upper respiratory infection) (Acute) Abdominal pain (Acute) Diarrhea (Acute) Atypical migraine (Acute) Otalgia, right ear (Acute) Acute otitis media of right ear with perforated tympanic membrane (Acute) Non-ST elevation DC (NSTEMI) (Acute) Chronic kidney disease, stage III (moderate) (Acute) Hypermagnesemia (Acute) Acute hypokalemia (Acute) Ground glass opacity present on imaging of lung (Acute) Elevated troponin (Acute) CATIE (acute kidney injury) (Acute) Restrictive lung disease secondary to obesity (Acute) Allergic asthma (Acute) intermittent, controlled Dyspnea (Acute) Diarrhea (Acute) Congestive heart failure (Chronic) Sick euthyroidism (Acute) Carpal tunnel syndrome (Acute) GERD (gastroesophageal reflux disease) (Chronic) Bilateral renal artery stenosis (Acute) Encounter for weight loss counseling (Acute) Pulmonary emboli (Chronic) Arthritis of carpometacarpal (CMC) joint of left thumb (Acute) Avulsion fracture of right talus (Acute 12/30/21) Bilateral carpal tunnel syndrome (Acute) Paresthesia of hand, bilateral (Acute) Abnormal chest CT (Acute) Pulmonary hypertension (Acute) Atypical chest pain (Acute) PSVT (paroxysmal supraventricular tachycardia) (Acute) Acute non-ST elevation myocardial infarction (NSTEMI) (Acute) Elevated troponin I level (Acute) Right upper quadrant abdominal pain (Acute) Chronic heart failure with preserved ejection fraction (Chronic) Restless legs syndrome (Acute) Rhinitis, nonallergic, chronic (Acute) Tendinitis (Acute) Chest pain (Acute) Migraine headache without aura (Acute) Lichen sclerosus (Acute) MARYLOU (obstructive sleep apnea) (Chronic) Migraine with aura and without status migrainosus, not intractable (Acute 02/24/16) Medical History Myocardial infarction 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 Mild intermittent asthma Atherosclerosis of renal artery Heart failure Supraventricular tachycardia Atrial fibrillation Superior mesenteric artery stenosis (~03/10/22) see CTA abdomen and pelivs: 80% narrowing of SMA origin Renal artery stenosis (~03/10/22) right renal artery stenosis per CTA abomen/pelvis Hx of supraventricular tachycardia Infiltrate of lower lobe of left lung present on imaging study Acute non-ST elevation myocardial infarction (NSTEMI) COVID-19 Left lateral epicondylitis Arthritis of carpometacarpal (CMC) joint of left thumb Left wrist pain CHI (closed head injury) Acute bronchitis Non-ST elevation DC (NSTEMI) Insomnia Asthma Overweight Endometriosis Depression Surgical History History of radiofrequency ablation (RFA) procedure for cardiac arrhythmia Hx of tubal ligation History of partial hysterectomy Family History Daughter Migraines Mother Hypertension Father Heart disease Social History Smoking/Tobacco Use Status: Never Smoking risk assessment performed?: Yes Alcohol Intake: never Drug use: Never Substance use type: does not use Housing: house Current gender identity: female Do you feel safe at home: Yes Do you feel safe in your relationship?: Yes Female Reproductive History Menstrual Menopause type: surgical History History 2 Para 2 Hx # Term Pregnancies Multiple births Hx # Pregnancies Ectopic pregnancies AB induced Hx Number of Living Children AB spontaneous POCUS Exam (ED) Limited Cardiac Exam DATE OF EXAM: 10/13/24 TIME OF EXAM: 11:40 PROVIDER THAT PERFORMED THE STUDY: Taran Tellez IS THIS A REPEAT EXAM DURING THIS ENCOUNTER: no REASON FOR EXAM: Chest pain and Dyspnea VISUALIZED STRUCTURES: Left atrium, Left ventricle and Right ventricle VIEW OBTAINED: Parasternal long-axis (Limited view) and Subxiphoid (Limited view) PERTINENT FINDINGS/IMPRESSION: Other (Limited exam due to patient habitus. Difficulty in assessing global cardiac function. No pericardial effusion.) Limited study. No definite pericardial effusion. Exam complete
[2024-10-13 12:40] LABS: ALT 25 U/L (14-59); AST 16 U/L (15-37); Albumin 3.5 g/dL (3.4-5.0); Alkaline Phosphatase 54 U/L (46-116); Anion Gap 9.5 mmol/L (3-11); BUN 23 mg/dL (7-18); Bilirubin, Total 0.5 mg/dL (0.2-1.0); CO2 22.5 mmol/L (21.0-32.0); Calcium 8.9 mg/dL (8.5-10.1); Chloride 109 mmol/L (98-107); Estimated GFR 44.43 (mL/min/1.73m2); Glucose 104 mg/dL (74-106); Magnesium 2.1 mg/dL (1.8-2.4); NT-proBNP 2096 pg/mL (<300); Potassium 4.4 mmol/L (3.5-5.1); Sodium 141 mmol/L (136-145); Total Protein 7.0 g/dL (6.4-8.2)
[2024-10-13 12:47] LABS: Troponin I 378 ng/L (<or=51)
[2024-10-13 13:32] LABS: Troponin I 346 ng/L (<or=51)
== END 2024-10-13 14:51 | disposition home or self-care (01) ==
PROVIDERS: Emergency Provider General Practice; PCP Physician Assistant
DX: R07.9 Chest pain, unspecified (principal); R06.02 Shortness of breath; J45.909 Unspecified asthma, uncomplicated; I25.10 Atherosclerotic heart disease of native coronary artery without angina pectoris
CPT/HCPCS: 99285 ×2; 36415; 80053; 93005; 93308; 71045; 83735; 83880; 84484; 85025; 85610; 85730; 93010

== ENCOUNTER 2024-11-04 01:22 | Inpatient (IN) | payer BC, SELFPAY ==
[2024-11-04] VITALS (138 sets, daily range): BP systolic 102–158; BP diastolic 46–75; PULSE 48–85; RESP 13–35; TEMP 36.1–37.4; O2SAT 91–100
--- NOTE | 2024-11-04 01:15 | RT.EKG_ITS ---
APPROVED REPORT Exam: Resting ECG Reason for Exam: SOB Patient Location: E HR:73 bpm ECG Measurements Heart Rate 73 AXIS ID 176 P 32 QRSd 91 QRS 65 QT 396 T 15 QTc 437 Conclusion Sinus rhythm...normal P axis, V-rate 60- 99 Probable left atrial enlargement...P >50mS, <-0.10mV V1 Abnrm R prog, consider ASMI or lead placement...Q >30mS, diminished R, V1-V2 Borderline ST depression, diffuse leads...ST <-0.07mV, ant/lat/inf ST depression mildly improved comared to 10/13/2024 tracing, overall this EKG is minimally changed
--- NOTE | 2024-11-04 01:53 | W.ED.GENAD ---
Discharge Plan Disposition Patient Disposition: Admit to [facility] Condition: Stable Discharge Details Clinical Impression: Congestive heart failure Primary Care Provider: Polo Pearce ED Provider: Itz Riley Polo Meds and New Rx's Prescriptions: No Action ropinirole 1 mg tablet 1 mg PO BID Rx Instructions: @ 1600 and 2100 Wegovy 0.5 mg/0.5 mL pen injector 0.5 mg subcut QWEEK Rx Instructions: administer weeks 5 through 8 of therapy Ubrelvy 50 mg tablet 50 mg PO ONCE PRN Rx Instructions: as a single dose; may repeat once in >=2 hours after first dose if needed topiramate [Topamax] 100 mg tablet 100 mg PO QHS Qty: 90 3RF Aimovig Autoinjector 140 mg/mL auto-injector 140 mg subcut QMONTH Qty: 1 11RF fluticasone propionate [Flonase Allergy Relief] 9.9 ML spray,suspension 2 spray NS DAILY PRN duloxetine [Cymbalta] 60 mg capsule,delayed release(DR/EC) 60 mg PO DAILY Qty: 30 2RF albuterol sulfate 90 mcg/actuation HFA aerosol inhaler 2 puff inhalation Q4H PRN loratadine [Allergy Relief (loratadine)] 10 mg tablet 10 mg PO DAILY PRN nitroglycerin 0.4 mg tablet, sublingual 0.4 mg sublingual Q5M PRN Rx Instructions: do not exceed 3 doses per episode apixaban 5 mg tablet 5 mg PO BID Jardiance 10 mg tablet 10 mg PO DAILY ranolazine 1,000 mg tablet extended release 12 hr 1,000 mg PO BID montelukast 10 mg tablet 10 mg PO DAILY PRN gabapentin 600 mg tablet 600 mg PO QHS Qty: 90 3RF melatonin 10 mg capsule 10 mg PO HS PRN aspirin 81 mg tablet 81 mg PO DAILY Qty: 90 3RF metoprolol succinate 25 mg tablet extended release 24 hr 25 mg PO DAILY Patient Comments: TAKE ONE TABLET BY MOUTH EVERY DAY torsemide 20 mg Tablet 20 mg PO DAILY Qty: 90 0RF metolazone 2.5 mg tablet 2.5 mg PO PRN PRNQty: 0 0RF potassium chloride 20 mEq tablet extended release 40 meq PO BID Patient Comments: TAKE TWO TABLETS BY MOUTH TWICE A DAY atorvastatin 40 mg tablet 40 mg PO QPM Patient Comments: TAKE ONE TABLET BY MOUTH EVERY EVENING omeprazole 40 mg capsule,delayed release(DR/EC) 40 mg PO DAILY Patient Comments: TAKE ONE CAPSULE BY MOUTH EVERY DAY HPI General Date/Time Provider Initiated Documentation: 11/04/24 01:32. HPI Narrative: The patient is a 54-year-old female, with a past medical history significant for myocardial infarction, atrial fibrillation status post radiofrequency ablation, history of asthma, depression, migraine disease, and chronic pain, who presents to the emergency department this evening with complaints of increasing shortness of breath, much worse within the last 2 days after requiring a nonproductive cough. The patient states that she has been having difficulty with exercise intolerance for several weeks now. She was seen here in the emergency room on October 13 (22 days ago) and was discharged to multispecialty outpatient follow-up after phone consultation with cardiology. The patient had a recent cath which showed no occluded vessels in her coronary artery system. The patient states that she has had increasing difficulty walking around as she becomes short of breath, but she denies having any recurrent episodes of atrial fibrillation or SVT that she knows of. The patient states that 2 days ago she began developing a cough and now has a quite frequent cough. Tonight, she was unable to lie flat in her bed secondary to shortness of breath and presents to the emergency room for evaluation. The patient reports subjective fevers and chills over the course of the last 2 days. Related Data Home Medications ?Medication ?Instructions ?Recorded ?Confirmed fluticasone propionate 50 2 spray NS DAILY PRN 12/23/16 11/04/24 mcg/actuation nasal spray,suspension (Flonase Allergy Relief) ropinirole 1 mg tablet 1 mg PO BID 06/12/20 11/04/24 duloxetine 60 mg capsule,delayed 60 mg PO DAILY #30 mg 08/19/20 11/04/24 release (Cymbalta) albuterol sulfate 90 mcg/actuation 2 puff inhalation Q4H PRN 05/30/21 11/04/24 aerosol inhaler loratadine 10 mg tablet (Allergy 10 mg PO DAILY PRN 05/30/21 11/04/24 Relief (loratadine)) nitroglycerin 0.4 mg sublingual 0.4 mg sublingual Q5M PRN 09/25/21 11/04/24 tablet melatonin 10 mg capsule 10 mg PO HS PRN 04/16/23 11/04/24 apixaban 5 mg tablet 5 mg PO BID 08/13/23 11/04/24 empagliflozin 10 mg tablet 10 mg PO DAILY 08/13/23 11/04/24 (Jardiance) ranolazine 1,000 mg 1,000 mg PO BID 08/13/23 11/04/24 tablet,extended release,12 hr montelukast 10 mg tablet 10 mg PO DAILY PRN 09/16/23 11/04/24 metolazone 2.5 mg tablet 2.5 mg PO PRN PRN #0 tabs 09/25/23 11/04/24 torsemide 20 mg tablet 20 mg PO DAILY #90 tabs 09/25/23 11/04/24 Held on 11/04/24. Instructions: Pt Stopped/Never Started erenumab-aooe 140 mg/mL 140 mg subcut QMONTH #1 mL 01/19/24 11/04/24 subcutaneous auto-injector (Aimovig Autoinjector) Held on 11/04/24. Instructions: Prescription Finished semaglutide (weight loss) 0.5 0.5 mg subcut QWEEK 01/19/24 11/04/24 mg/0.5 mL subcutaneous pen injector (Wegovy) Held on 11/04/24. Instructions: Prescription Finished topiramate 100 mg tablet (Topamax) 100 mg PO QHS #90 tab-caps 01/19/24 11/04/24 ubrogepant 50 mg tablet (Ubrelvy) 50 mg PO ONCE PRN 01/19/24 11/04/24 gabapentin 600 mg tablet 600 mg PO QHS #90 tabs 03/14/24 11/04/24 atorvastatin 40 mg tablet 40 mg PO QPM 04/21/24 11/04/24 potassium chloride 20 mEq 40 meq PO BID 04/21/24 11/04/24 tablet,extended release omeprazole 40 mg capsule,delayed 40 mg PO DAILY 04/22/24 11/04/24 release aspirin 81 mg tablet 81 mg PO DAILY #90 tabs 10/13/24 11/04/24 metoprolol succinate 25 mg 25 mg PO DAILY 11/04/24 11/04/24 tablet,extended release 24 hr Previous Rx's ?Medication ?Instructions ?Recorded duloxetine 60 mg capsule,delayed 60 mg PO DAILY #30 mg 08/19/20 release (Cymbalta) metolazone 2.5 mg tablet 2.5 mg PO PRN PRN #0 tabs 09/25/23 torsemide 20 mg tablet 20 mg PO DAILY #90 tabs 09/25/23 Held on 11/04/24. Instructions: Pt Stopped/Never Started erenumab-aooe 140 mg/mL 140 mg subcut QMONTH #1 mL 01/19/24 subcutaneous auto-injector (Aimovig Autoinjector) Held on 11/04/24. Instructions: Prescription Finished topiramate 100 mg tablet (Topamax) 100 mg PO QHS #90 tab-caps 01/19/24 gabapentin 600 mg tablet 600 mg PO QHS #90 tabs 03/14/24 aspirin 81 mg tablet 81 mg PO DAILY #90 tabs 10/13/24 Allergies Allergy/AdvReac Type Severity Reaction Status Date / Time clobetasol AdvReac Intermediate Skin Rash Verified 11/04/24 01:32 codeine AdvReac Mild Not able Verified 11/04/24 01:32 to sleep ibuprofen AdvReac migraines Unverified 11/04/24 01:32 environmental Allergy Mild sneezing/triggers Uncoded 11/04/24 01:32 her asthma General Stated Complaint: Chest Pain MIKAELA: 2 Exam Const General: cooperative and no acute distress Neck Neck: full ROM and no JVD Resp Effort & Inspection: able to speak in complete sentences, cough Quality of cough: actively coughing and no respiratory distress Auscultation: rales bilaterally Cardio Rate: regular rate Rhythm: regular rhythm Heart Sounds: S1 normal and S2 normal Skin General skin exam: no rashes or lesions noted, turgor normal, no mottling and no pallor Neuro General: patient alert, patient awake, patient oriented x3, normal light touch, pain and propioception, no focal motor deficits and CN's II-XI intact bilaterally Cognition: normal cognition Speech: speech normal Extrem General: full ROM, capillary refill normal and no edema Course Vital Signs Vital signs: Vital Signs Pulse 81 11/04/24 01:27 Respiratory Rate 19 11/04/24 01:27 Blood Pressure 120/61 11/04/24 01:27 Pulse Oximetry 92 11/04/24 01:27 Temperature Source Temporal Artery Scan 11/04/24 01:27 Pulse 81 11/04/24 01:27 Respiratory Rate 19 11/04/24 01:27 Blood Pressure 120/61 11/04/24 01:27 Blood Pressure Position Sitting 11/04/24 01:27 Pulse Oximetry 92 11/04/24 01:27 Oxygen Delivery Method Room Air 11/04/24 01:27 Oxygen Flow Rate 0 11/04/24 01:27 Pain Level 10 11/04/24 01:27 Lab/Test Results Lab/Test Results: 11/04/24 01:42 Blood Blood Culture - Pending 11/04/24 01:42 Blood Blood Culture - Pending Medical Decision Making The patient was seen and examined. She has diffuse sounding rales with a frequent bronchospastic cough which is wet sounding but does not appear to be productive. The patient is afebrile here in the emergency room. The patient does have an oxygen saturation in the low 90s on room air. She was placed on 2 L nasal cannula and this improved into the high 90s. The patient's EKG represents a normal sinus rhythm ventricular response rate of 73 bpm. This tracing is largely unchanged from a prior study on 10/13/2024, which demonstrated some ST depression in the inferior leads. This is somewhat improved in appearance on this tracing. The patient will need to be screened for congestive failure, given her prior history, her clinical rales and orthopea. Although based on the new cough and subjective fevers, this seems more likely to represent some form of bronchitis or pneumonia. The patient be given a DuoNeb treatment here in the emergency room and will be observed for improvement in her symptoms. Labs and chest x-ray ensued. The patient continues to be oxygen requiring, she may require admission to the hospital for respiratory supportive care as a bridge to improvement in her symptoms. [id number] - The case was discussed with the cardiology service at [facility]. They will accept the patient in transfer over the weekend to obtain an echocardiogram for her as there are not echo services available at an [facility] over the holiday weekend. However, they do not have bed availability until the and assess the patient will be admitted to the hospitalist service for ongoing diuresis, telemetry observation, trending troponins, and management of electrolytes until the patient can be transferred down to the cardiology service for echocardiogram at that time. The accepting physician is Dr. Lloyd Flores. I discussed the case with Dr. Monroy from our hospitalist service for the purpose of admissions to this facility. [facility] All Active Problems (Updated 11/04/24 @ 03:53 by Itz Riley MD) Acute exacerbation of chronic heart failure (Acute) Migraine (Chronic) Hypotension (Acute) Sinusitis (Acute) Elevated troponin (Chronic) Influenza A (Acute) Acute sinusitis (Acute) CKD stage 3b, GFR 30-44 ml/min (Chronic) Cough (Acute) URI (upper respiratory infection) (Acute) Abdominal pain (Acute) Diarrhea (Acute) Atypical migraine (Acute) Otalgia, right ear (Acute) Acute otitis media of right ear with perforated tympanic membrane (Acute) Non-ST elevation DC (NSTEMI) (Acute) Chronic kidney disease, stage III (moderate) (Acute) Hypermagnesemia (Acute) Acute hypokalemia (Acute) Ground glass opacity present on imaging of lung (Acute) Elevated troponin (Acute) CATIE (acute kidney injury) (Acute) Restrictive lung disease secondary to obesity (Acute) Allergic asthma (Acute) intermittent, controlled Dyspnea (Acute) Diarrhea (Acute) Congestive heart failure (Chronic) Sick euthyroidism (Acute) Carpal tunnel syndrome (Acute) GERD (gastroesophageal reflux disease) (Chronic) Bilateral renal artery stenosis (Acute) Encounter for weight loss counseling (Acute) Pulmonary emboli (Chronic) Arthritis of carpometacarpal (CMC) joint of left thumb (Acute) Avulsion fracture of right talus (Acute 12/30/21) Bilateral carpal tunnel syndrome (Acute) Paresthesia of hand, bilateral (Acute) Abnormal chest CT (Acute) Pulmonary hypertension (Chronic) Atypical chest pain (Acute) PSVT (paroxysmal supraventricular tachycardia) (Acute) Acute non-ST elevation myocardial infarction (NSTEMI) (Acute) Elevated troponin I level (Acute) Right upper quadrant abdominal pain (Acute) Chronic heart failure with preserved ejection fraction (Chronic) Restless legs syndrome (Acute) Rhinitis, nonallergic, chronic (Acute) Tendinitis (Acute) Chest pain (Acute) Migraine headache without aura (Acute) Lichen sclerosus (Acute) MARYLOU (obstructive sleep apnea) (Chronic) Migraine with aura and without status migrainosus, not intractable (Acute 02/24/16) Medical History Myocardial infarction 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 Mild intermittent asthma Atherosclerosis of renal artery Heart failure Supraventricular tachycardia Atrial fibrillation Superior mesenteric artery stenosis (~03/10/22) see CTA abdomen and pelivs: 80% narrowing of SMA origin Renal artery stenosis (~03/10/22) right renal artery stenosis per CTA abomen/pelvis Hx of supraventricular tachycardia Infiltrate of lower lobe of left lung present on imaging study Acute non-ST elevation myocardial infarction (NSTEMI) COVID-19 Left lateral epicondylitis Arthritis of carpometacarpal (CMC) joint of left thumb Left wrist pain CHI (closed head injury) Acute bronchitis Non-ST elevation DC (NSTEMI) Insomnia Asthma Overweight Endometriosis Depression Surgical History History of radiofrequency ablation (RFA) procedure for cardiac arrhythmia Hx of tubal ligation History of partial hysterectomy Family History Daughter Migraines Mother Hypertension Father Heart disease Social History Smoking/Tobacco Use Status: Never Smoking risk assessment performed?: Yes Alcohol Intake: never Drug use: Never Substance use type: does not use Housing: house Current gender identity: female Do you feel safe at home: Yes Do you feel safe in your relationship?: Yes Female Reproductive History Menstrual Menopause type: surgical History History 2 Para 2 Hx # Term Pregnancies Multiple births Hx # Pregnancies Ectopic pregnancies AB induced Hx Number of Living Children AB spontaneous
--- NOTE | 2024-11-04 01:56 | DI.RAD_ITS ---
Exam(s) XR PORTABLE CHEST AP EXAM: XR PORTABLE CHEST AP CLINICAL HISTORY: cough, shortness of breath TECHNIQUE: 2D digital imaging was performed of the chest. One image was obtained. An AP view was obtained. COMPARISON: CR XR PORTABLE CHEST AP from 10/13/2024 FINDINGS: MEDIASTINUM: Normal. HEART: Within normal limits in size given the AP projection. PULMONARY VASCULATURE: Normal. LUNGS: There is a new right perihilar infiltrate with air bronchograms. There is mild diffuse prominence of the interstitium. This may represent edema or pneumonitis. PLEURAL SPACE: No pleural effusion or pneumothorax. BONE:Within normal limits for the patient's age. There is again seen an old nonunited right clavicular fracture. OTHER FINDINGS:Normal. IMPRESSION: 1. New right perihilar opacity suspicious for pneumonia. 2. The preliminary [facility] report was reviewed. DATA REPOSITORY: RADIATION DOSE DELIVERED:
[2024-11-04 01:58] LABS: Abs Immature Grans 0.06 10^3/uL (0.0-0.06); HCT 45.2 % (36.0-46.0); HGB 14.4 g/dL (11.2-15.7); Immature Grans % 0.5 %; MCH 32.2 pg (27.0-33.0); MCHC 31.9 % (32.0-36.0); MCV 101 fL (80-95); MPV 10.6 fL (8.0-11.0); Platelet Count 264 10^3/uL (130-400); RBC 4.47 10^6/uL (3.93-5.22); RDW 13.5 % (11.7-14.6); RDW-SD 50.5 fL; WBC 12.18 10^3/uL (4.4-10.8)
[2024-11-04] MEDS: Albuterol/Ipratropium 3 ML UPD VIAL UPD (02:07)
--- NOTE | 2024-11-04 02:07 | DI.[facility]_ITS ---
PROCEDURE INFORMATION: Exam: XR Chest Exam date and time: 11/04/2024 1:58 AM Age: 54 years old Clinical indication: Cough and shortness of breath; Cough, shortness of breath TECHNIQUE: Imaging protocol: Radiologic exam of the chest. Views: 1 view. COMPARISON: CR XR PORTABLE CHEST AP 10/13/2024 1:03 PM FINDINGS: Lungs: Diffuse interstitial radiopacities are present throughout both lungs. There may be superimposed pulmonary radiopacities within the right mid lung. Pleural spaces: No pneumothorax. Heart/Mediastinum: The heart is normal size. Bones/joints: Unremarkable. IMPRESSION: 1. Diffuse pulmonary radiopacities suspicious for pulmonary edema or viral pneumonitis. 2. Patchy right mid lung radiopacities suspicious for aspiration/infection. Dictated and Authenticated by: Rehana Swift MD. Orderin Rosemary Mobley MD
[2024-11-04] MEDS: Ondansetron 4 MG/2 ML VIAL IVP (02:19)
[2024-11-04 02:22] LABS: COVID-19 PCR Negative (Negative); RSV PCR Negative (Negative)
[2024-11-04 02:25] LABS: Anion Gap 12.1 mmol/L (3-11); BUN 24 mg/dL (7-18); CO2 22.9 mmol/L (21.0-32.0); Calcium 9.0 mg/dL (8.5-10.1); Chloride 108 mmol/L (98-107); Estimated GFR 48.56 (mL/min/1.73m2); Glucose 112 mg/dL (74-106); NT-proBNP 5004 pg/mL (<300); Potassium 4.0 mmol/L (3.5-5.1); Sodium 143 mmol/L (136-145)
[2024-11-04 02:32] LABS: Troponin I 302 ng/L (<or=51)
[2024-11-04] MEDS: nitroGLYcerin 2% 1 INCH/1 GM PKT TP ×4 (02:47→20:23)
[2024-11-04] MEDS: Furosemide 100 MG/10 ML VIAL 80 MG IVP (02:49)
[2024-11-04 03:20] LABS: Troponin I 263 ng/L (<or=51)
--- NOTE | 2024-11-04 03:46 | W.PM.HP.N ---
Date of service: 11/04/24 Time of Service: 03:46 Assessment and Plan Assessment and plan (1) Acute exacerbation of chronic heart failure: Start date: 11/04/24 Status: Acute Assessment and plan: This is a 54-year-old lady with history of right-sided CHF and CAD with clean coronary arteries by multiple catheterization with last performed in 2023. She currently has elevated troponins and these were elevated upon presentation but trending downward. She has CKD. She has been seen by [facility] keyboard specialist with plans for nuclear stress testing with previous nuclear stress testing showing focal lesion but overall preserved left-ventricular ejection fraction. She has been off her diuretics for for 1 week with a misunderstanding at her [place] [facility] appointment last week and she will reinitiate chronic diuretic therapy. She also was having chest pain with her exacerbation CHF and exertional dyspnea and chest pain as baseline worsening. She was not respond to nitroglycerin sublingually but has a Nitropatch to which is relieving her chest discomfort and making her breathing less difficult. She is on O2. She was admitted with plans for transfer to [facility] cardiology under Dr. Lloyd Flores's service when bed is available in the next 24 to 48 hours. They plan to at least update her echocardiogram. She will continue on IV Lasix 40 mg twice daily while hospitalized here. She overall is feeling galdino but frustrated by her continued exertional symptoms over the last months to years.. She is a full code. (2) Chronic heart failure with preserved ejection fraction: Status: Chronic Assessment and plan: Patient will have updated echocardiogram when transferred to [facility]. Continue IV Lasix diuresis. Watch electrolytes and replenish if needed. (3) Elevated troponin: Status: Chronic Assessment and plan: Patient has have an elevated troponin which is trending downward and may be residual from her exertional symptoms with no evidence of acute ischemic process. She was not recommended to be placed on IV heparin. She most likely would not have cardiac catheterization but follow-up at [place] for further evaluation of these recurrent symptoms. She does have a history of previous non-STEMI and focal wall motion abnormalities with previous nuclear stress testing. Continue to trend troponins while patient is hospitalized at this institution. If she worsens or if troponins begin to increase degree evaluate treatment plan and discussed with [facility] cardiology. (4) PSVT (paroxysmal supraventricular tachycardia): Status: Chronic Assessment and plan: Patient is on metoprolol chronically and he does not remember having history of atrial fibrillation though this is on her problem list. She is on Eliquis for previous PE as well. She is on pvc monitor and is in sinus rhythm presently. Continue outpatient medical therapy including beta-tiffanie and anticoagulation. (5) Pulmonary hypertension: Status: Chronic Assessment and plan: Patient does have element of right-sided heart failure with pulmonary hypertension and COPD. She tends to have rapid decompensation with flash edema. (6) CKD stage 3b, GFR 30-44 ml/min: Status: Chronic Assessment and plan: Stable but monitor while on increased diuresis. She has had problems with worsening renal function in the past with overdiuresis. (7) MARYLOU (obstructive sleep apnea): Status: Chronic Assessment and plan: Continue outpatient BiPAP with outpatient settings. (8) GERD (gastroesophageal reflux disease): Status: Chronic Assessment and plan: Continue PPI. (9) Depression: Assessment and plan: Continue outpatient medical therapy. This is stable. History of Present Illness History of Present Illness Chief Complaint: Progressive dyspnea upon exertion now with orthopnea. Narrative: This is a 54-year-old female patient who presented to the ED with acute worsening of dyspnea with exertion and exertional chest discomfort over the last 2 to 3 days with a long history of progressive increasing dyspnea with exertion over the last 1 to 2 months. She has not gained weight or had edema over her legs and has not been taking metolazone which is used as needed. She is chronically on torsemide up to 1 week ago when she was seen in [place] and evaluated by cardiology for her ischemic heart disease with clean major coronary arteries. Her last catheterization was in June 2023 after several cardiac catheterizations prior to that for recurrent worsening of exertional chest pain and increased troponins. She does have CKD and her troponins are elevated presently but stable compared to last measurements. These usually do not go to normal. She had a BNP in the ED and was found to have an increased BNP from her baseline. Further history did reveal that the patient has been off all diuretics for the last week after her trip to [place] with a told her to stop her Bumex or torsemide with patient never on Bumex by her knowledge. She stopped all diuretics. She did not take her metolazone. The patient risk factors for cardiovascular disease includes a strong family history with her father having early heart disease and multiple interventions, MARYLOU on BiPAP at home, morbid obesity and hyperlipidemia. She does not have diabetes. She does have COPD. She does have an element of right-sided heart failure with her lung disease. Cardiology at [facility] was consulted and the patient will need updated echocardiogram and probable not have repeat cardiac catheterization at this time. They did not recommend IV heparin infusion but continuation of Eliquis. She is on Eliquis for previous PE. Accepted her in transfer open expiratory [address] to [address] Llody Flores's service. Patient did receive nitroglycerin topically in the ED which helped her chest discomfort and she has been taking her sublingual nitroglycerin with exertional chest pain recently and not having a response for relief of chest pain. She is on ranolazine for her chronic anginal symptoms. She has had a nuclear medicine stress test in the past which showed a focal lesion and [place] does plan to repeat this test with follow-up. Patient will be admitted per recommendation of [facility] cardiology for IV diuresis and continue Nitropaste topically. Her troponins will be trended while hospitalized at this institution. She is a full code. Review of Systems Narrative: 13 point review of systems as per HPI, otherwise unrevealing or stable. PFSH All Active Problems (Updated 11/04/24 @ 10:40 by Jose Monroy) Acute exacerbation of chronic heart failure (Acute) Migraine (Chronic) Hypotension (Acute) Sinusitis (Acute) Elevated troponin (Chronic) Influenza A (Acute) Acute sinusitis (Acute) CKD stage 3b, GFR 30-44 ml/min (Chronic) Cough (Acute) URI (upper respiratory infection) (Acute) Abdominal pain (Acute) Diarrhea (Acute) Atypical migraine (Acute) Otalgia, right ear (Acute) Acute otitis media of right ear with perforated tympanic membrane (Acute) Non-ST elevation MA (NSTEMI) (Acute) Chronic kidney disease, stage III (moderate) (Acute) Hypermagnesemia (Acute) Acute hypokalemia (Acute) Ground glass opacity present on imaging of lung (Acute) Elevated troponin (Acute) CATIE (acute kidney injury) (Acute) Restrictive lung disease secondary to obesity (Acute) Allergic asthma (Acute) intermittent, controlled Dyspnea (Acute) Diarrhea (Acute) Congestive heart failure (Chronic) Sick euthyroidism (Acute) Carpal tunnel syndrome (Acute) GERD (gastroesophageal reflux disease) (Chronic) Bilateral renal artery stenosis (Acute) Encounter for weight loss counseling (Acute) Pulmonary emboli (Chronic) Arthritis of carpometacarpal (CMC) joint of left thumb (Acute) Avulsion fracture of right talus (Acute 12/30/21) Bilateral carpal tunnel syndrome (Acute) Paresthesia of hand, bilateral (Acute) Abnormal chest CT (Acute) Pulmonary hypertension (Chronic) Atypical chest pain (Acute) PSVT (paroxysmal supraventricular tachycardia) (Chronic) Acute non-ST elevation myocardial infarction (NSTEMI) (Acute) Elevated troponin I level (Acute) Right upper quadrant abdominal pain (Acute) Chronic heart failure with preserved ejection fraction (Chronic) Restless legs syndrome (Acute) Rhinitis, nonallergic, chronic (Acute) Tendinitis (Acute) Chest pain (Acute) Migraine headache without aura (Acute) Lichen sclerosus (Acute) MARYLOU (obstructive sleep apnea) (Chronic) Migraine with aura and without status migrainosus, not intractable (Acute 02/24/16) Medical History Myocardial infarction 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 Mild intermittent asthma Atherosclerosis of renal artery Heart failure Supraventricular tachycardia Atrial fibrillation Superior mesenteric artery stenosis (~03/10/22) see CTA abdomen and pelivs: 80% narrowing of SMA origin Renal artery stenosis (~03/10/22) right renal artery stenosis per CTA abomen/pelvis Hx of supraventricular tachycardia Infiltrate of lower lobe of left lung present on imaging study Acute non-ST elevation myocardial infarction (NSTEMI) COVID-19 Left lateral epicondylitis Arthritis of carpometacarpal (CMC) joint of left thumb Left wrist pain CHI (closed head injury) Acute bronchitis Non-ST elevation MA (NSTEMI) Insomnia Asthma Overweight Endometriosis Depression Surgical History History of radiofrequency ablation (RFA) procedure for cardiac arrhythmia Hx of tubal ligation History of partial hysterectomy Family History Daughter Migraines Mother Hypertension Father Heart disease Social History Smoking/Tobacco Use Status: Never Smoking risk assessment performed?: Yes Alcohol Intake: never Drug use: Never Substance use type: does not use Housing: house Current gender identity: female Do you feel safe at home: Yes Do you feel safe in your relationship?: Yes Female Reproductive History Menstrual Menopause type: surgical History History 2 Para 2 Hx # Term Pregnancies Multiple births Hx # Pregnancies Ectopic pregnancies AB induced Hx Number of Living Children AB spontaneous Meds Allergies and Home Medications Allergies Allergy/AdvReac Type Severity Reaction Status Date / Time clobetasol AdvReac Intermediate Skin Rash Verified 11/04/24 01:32 codeine AdvReac Mild Not able Verified 11/04/24 01:32 to sleep ibuprofen AdvReac migraines Unverified 11/04/24 01:32 environmental Allergy Mild sneezing/triggers Uncoded 11/04/24 01:32 her asthma Home Medications ?Medication ?Instructions ?Recorded ?Confirmed ?Type fluticasone propionate 50 2 spray NS DAILY PRN 12/23/16 11/04/24 History mcg/actuation nasal spray,suspension (Flonase Allergy Relief) ropinirole 1 mg tablet 1 mg PO BID 06/12/20 11/04/24 History duloxetine 60 mg capsule,delayed 60 mg PO DAILY #30 mg 08/19/20 11/04/24 Rx release (Cymbalta) albuterol sulfate 90 mcg/actuation 2 puff inhalation Q4H PRN 05/30/21 11/04/24 History aerosol inhaler loratadine 10 mg tablet (Allergy 10 mg PO DAILY PRN 05/30/21 11/04/24 History Relief (loratadine)) nitroglycerin 0.4 mg sublingual 0.4 mg sublingual Q5M PRN 09/25/21 11/04/24 History tablet melatonin 10 mg capsule 10 mg PO HS PRN 04/16/23 11/04/24 History apixaban 5 mg tablet 5 mg PO BID 08/13/23 11/04/24 History empagliflozin 10 mg tablet 10 mg PO DAILY 08/13/23 11/04/24 History (Jardiance) ranolazine 1,000 mg 1,000 mg PO BID 08/13/23 11/04/24 History tablet,extended release,12 hr montelukast 10 mg tablet 10 mg PO DAILY PRN 09/16/23 11/04/24 History metolazone 2.5 mg tablet 2.5 mg PO PRN PRN #0 tabs 09/25/23 11/04/24 Rx torsemide 20 mg tablet 20 mg PO DAILY #90 tabs 09/25/23 11/04/24 Rx Held on 11/04/24. Instructions: Pt Stopped/Never Started erenumab-aooe 140 mg/mL 140 mg subcut QMONTH #1 mL 01/19/24 11/04/24 Rx subcutaneous auto-injector (Aimovig Autoinjector) Held on 11/04/24. Instructions: Prescription Finished semaglutide (weight loss) 0.5 0.5 mg subcut QWEEK 01/19/24 11/04/24 History mg/0.5 mL subcutaneous pen injector (Wegovy) Held on 11/04/24. Instructions: Prescription Finished topiramate 100 mg tablet (Topamax) 100 mg PO QHS #90 tab-caps 01/19/24 11/04/24 Rx ubrogepant 50 mg tablet (Ubrelvy) 50 mg PO ONCE PRN 01/19/24 11/04/24 History gabapentin 600 mg tablet 600 mg PO QHS #90 tabs 03/14/24 11/04/24 Rx atorvastatin 40 mg tablet 40 mg PO QPM 04/21/24 11/04/24 History potassium chloride 20 mEq 40 meq PO BID 04/21/24 11/04/24 History tablet,extended release omeprazole 40 mg capsule,delayed 40 mg PO DAILY 04/22/24 11/04/24 History release aspirin 81 mg tablet,delayed 81 mg PO DAILY 11/04/24 11/04/24 History release metoprolol succinate 25 mg 25 mg PO DAILY 11/04/24 11/04/24 History tablet,extended release 24 hr Exam Narrative Exam Narrative: General: Patient is appropriate for age, moderate to morbidly obese, alert and oriented x 3 and in no acute distress. HEENT: Normocephalic, eyes with pupils equal and reactive to light symmetrically, extraocular movement intact and sclera anicteric. Oropharynx with moist Koza and good dentition. Neck: Supple without JVD. Back: Stooped posture without CVA tenderness. Lungs: Fair aeration and clear to auscultation and percussion. No expiratory wheeze and no focalizing rales or rhonchi. Breast: Exam deferred. Heart: Regular rate and rhythm with no murmurs gallops appreciated. Abdomen: Obese contour, soft and nontender to palpation with no palpable hepatosplenomegaly. Bowel sounds positive in all quadrants. No guarding or rebound. Genitalia/rectal: Exam deferred. Skin: Normal color, warm and dry. Extremities: Without clubbing, cyanosis or pitting edema. Peripheral pulses intact. Neuro: Cranial nerves II through XII gross intact, no focalized motor deficit no tremor. Psych: Normal affect and mood. No abnormal thought processes. Remote and recent memory intact. Results Imaging Imaging Studies: Exam: XR Chest Exam date and time: 11/04/2024 1:58 AM Age: 54 years old Clinical indication: Cough and shortness of breath; Cough, shortness of breath TECHNIQUE: Imaging protocol: Radiologic exam of the chest. Views: 1 view. COMPARISON: CR XR PORTABLE CHEST AP 10/13/2024 1:03 PM FINDINGS: Lungs: Diffuse interstitial radiopacities are present throughout both lungs. There may be superimposed pulmonary radiopacities within the right mid lung. Pleural spaces: No pneumothorax. Heart/Mediastinum: The heart is normal size. Bones/joints: Unremarkable. IMPRESSION: 1. Diffuse pulmonary radiopacities suspicious for pulmonary edema or viral pneumonitis. 2. Patchy right mid lung radiopacities suspicious for aspiration/infection. (POCUS performed by ED provider revealed B-lines consistent with CHF and not acute pneumonia). Labs 11/04/24 01:50 11/04/24 01:50 Labs: Laboratory Results - last 24 hr 11/04/24 11/04/24 11/04/24 01:38 01:50 02:50 WBC 12.18 H RBC 4.47 Hgb 14.4 Hct 45.2 MCV 101 H MCH 32.2 MCHC 31.9 L RDW 13.5 Plt Count 264 MPV 10.6 Immature Gran % 0.5 Neutrophils % 76.1 Lymphocytes % 16.6 Monocytes % 4.3 Eosinophils % 2.1 Basophils % 0.4 Nucleated RBC % 0.0 Absolute Neutrophils 9.27 H Absolute Lymphocytes 2.02 Absolute Monocytes 0.52 Absolute Eosinophils 0.26 Absolute Basophils 0.05 Sodium 143 Potassium 4.0 Chloride 108 H Carbon Dioxide 22.9 Anion Gap 12.1 H BUN 24 H Creatinine 1.3 H Est GFR (CKD-EPI 2020) 48.56 Glucose 112 H Calcium 9.0 Troponin I 302 H* 263 H* NT-Pro-B Natriuret Pep 5004 H COVID-19 Source Nasopharynx SARS-CoV-2 (PCR) Negative Influenza Type A (PCR) Negative Influenza Type B (PCR) Negative RSV (PCR) Negative Last Vital Signs Pulse 67 11/04/24 03:43 Resp 29 H 11/04/24 03:43 BP 124/59 L 11/04/24 03:30 Pulse Ox 98 11/04/24 03:43 Time Spent Time spent with Patient: >75 minutes Time was spent: preparing to see the patient(eg.review tests), obtaining and/or reviewing separately otained hiistory, ordering medications,tests, procedures, referring, communicating with other health care clinician, indepentently interpreting results, counseling the patient and care coordination
[2024-11-04 05:21] LABS: Troponin I 286 ng/L (<or=51)
[2024-11-04 08:25] LABS: INR 1.1 (0.9-1.1); Prothrombin Time 10.8 sec (9.1-11.1)
[2024-11-04 08:38] LABS: TSH (W/Ref FT4) 3.85 uIU/mL (0.36-3.74)
[2024-11-04] MEDS: Normal Saline Flush 10 ML SYR IVP ×2 (08:57→20:24)
[2024-11-04] MEDS: Omeprazole 20 MG CAPCR 40 MG PO (09:03)
[2024-11-04] MEDS: Potassium Chloride 20 MEQ TABCR 40 MEQ PO ×2 (09:03→20:22)
[2024-11-04] MEDS: Apixaban 5 MG TAB PO ×2 (09:03→20:23)
[2024-11-04] MEDS: Aspirin 81 MG CHEW CH (09:03)
[2024-11-04] MEDS: DULoxetine 30 MG CAP 60 MG PO (09:03)
[2024-11-04] MEDS: Empaglifozin 10 MG TAB PO (09:03)
[2024-11-04] MEDS: Furosemide 40 MG/4 ML VIAL IVP ×2 (09:04→15:02)
[2024-11-04] MEDS: Metoprolol CR 25 MG TABCR PO (09:04)
--- NOTE | 2024-11-04 11:27 | PHACLINREV_ITS ---
Pharmacy Admission Review Admission Clinical Review Admission Pharmacy Review: Acute exacerbation of chronic heart failure (Acute) clobetasol Adverse Reaction (Intermediate, Verified 11/04/24 01:32) Skin Rash codeine Adverse Reaction (Mild, Verified 11/04/24 01:32) Not able to sleep ibuprofen Adverse Reaction (Unverified 11/04/24 01:32) migraines environmental Allergy (Mild, Uncoded 11/04/24 01:32) sneezing/triggers her asthma Resuscitation Status Full Code Height 5 ft 4 in Weight 102 kg Comments Comments/Follow Ups: Blood cultures pending, [facility] transfer pending bed Pharmacy Admission Review Renal Dosing Renal Dosing: BUN 24 mg/dL (7-18) H 11/04/24 01:50 Creatinine 1.3 mg/dL (0.55-1.02) H 11/04/24 01:50 Medications needing adjustments: Reviewed (CrCl 56.78 mL/min) List of meds needing interventions: Current medications are okay Anticoagulation Anticoagulation: Hgb 14.4 g/dL (11.2-15.7) 11/04/24 01:50 Hct 45.2 % (36.0-46.0) 11/04/24 01:50 Plt Count 264 10^3/uL (130-400) 11/04/24 01:50 INR 1.1 (0.9-1.1) 11/04/24 07:58 Creatinine 1.3 mg/dL (0.55-1.02) H 11/04/24 01:50 DVT Prophylaxis: Reviewed Medications: Apixaban (5mg BID) Relevant Labs Relevant Labs: Sodium 143 mmol/L (136-145) 11/04/24 01:50 Potassium 4.0 mmol/L (3.5-5.1) 11/04/24 01:50 Chloride 108 mmol/L (98-107) H 11/04/24 01:50 Electrolytes, C-Reactive P, ESR: Reviewed (WBC 12.18) Cardiac Review Cardiac Review: Troponin I 286 ng/L (<or=51) H* 263 ng/L (<or=51) H* 302 ng/L (<or=51) H* 11/04/24 04:52 11/04/24 02:50 11/04/24 01:50 NT-Pro-B Natriuret Pep 5004 pg/mL (<300) H 11/04/24 01:50 BP, HR, EF%: Reviewed (BP and HR WNL) List meds needing interventions: Has orders for furosemide 40mg IVP BID and metoprolol XL 25mg daily QTc Review QTc: Reviewed (437 from 11/04/24) IV to PO Switch IV Medications: Reviewed (furosemide) Home Meds Home Med List reviewed: Intervened Relevent Home Meds Not ordered & why?: Aimovig (listed as not taking on home med list), Flonase (PRN), loratadine (PRN), metolazone (PRN), Wegovy (listed as not taking on home med list), torsemide (has order for IV furosemide) and Ubrelvy (PRN) Recently filled spironolactone but not on home med list, asked nurse to see if patient takes this at home. Per nurse she does take it, added to home med list and informed provider. Last filled Januvia 12/29, asked nurse to confirm with patient that they are still taking this at home. Per patient she does take at home. Current Meds Current Medication Order Review: Intervened Comments: Changed IV ED access order Comments Comments/Follow Ups: Blood cultures pending, [facility] transfer pending bed
[2024-11-04] MEDS: rOPINIRole 1 MG TAB PO ×2 (15:02→20:23)
[2024-11-04] MEDS: Acetaminophen 325 MG TAB 650 MG PO (15:02)
--- NOTE | 2024-11-04 15:05 | PDOC.CMIN ---
Date of service: 11/04/24 Time of Service: 15:05 Care Management Initial Assmt Initial Assessment Reason for Hospitalization: Acute CHF, Elevated troponin, CKD Functional Status/Living Situation Patient Presentation: Indira who prefers 'Mihaela' was sitting in a chair reading a book when CM met with her. Per report, Mihaela as been accepted to [facility] as a transfer, and is awaiting a bed. Mihaela reports that she resides in [facility] with her , for whom she provides some care. She is independent at baseline, including with driving, and is currently employed. Mihaela shared that she is working with [employer] through her insurance who have helped support her familys needs. CM will continue to follow. Town of Residence: [facility] Resides with: Spouse Significant Other/Family: Local (Children, grandchildren, and mother are in the area) Employment Status: Employed Instrumental Activities of Daily Living (ADLs): Independent Activities/Hobbies/SocialSupport: reading Medications Medication Management: No Issues/Barriers identified Advance Directives Advance Directives: Do you have an Advance Directive: N 09/21/22, 09:46 AD On File at [facility]: N 09/21/22, 09:46 Date Asked 10/13/24 10/13/24, 11:30 AD Date Reviewed COLST On File at [facility] COLST Date Scanned Code Status Resuscitation Status Full Code Portal Pt does not currently have a portal and education provided: Yes Insurance Coverage/Financial Issues Insurance: /[facility] - [id number] Care Team Visit Care Team Role Provider Type Aaron Reina MD [facility] STAFF PHYSICIAN Polo Pearce Primary Care Provider NON-[facility] STAFF PHYSICIAN Izt Riley MD Emergency Provider [facility] STAFF PHYSICIAN Joes Monroy Admit Provider NON-[facility] STAFF PHYSICIAN Attending Provider Discharge Plan: Mihaela has been accepted at [facility] and will be transfered there. Once discharged, willis she will return home and follow up with her community providers and continue per her plan of care. She will transport via private vehicle by friend vs RCT. CM will continue to follow. Social Determinants of Health Screening Social Determinants of health last assessed in clinic: 11/04/24 Will the Patient Participate in the Screening?: Yes Do you worry about having a steady place to live?: yes What is your living situation today?: I have housing today, but am worried about losing it Problems where you live: no known problems In the past 12 months, have you had to go without electric, gas, oil or water in your home?: no 1. Within the past 12 months, we worried whether our food would run out before we got money to buy more.: Never true 2. Within the past 12 months, the food we bought just didn't last and we didn't have money to get more.: Never true Has lack of transportation kept you from medical appointments or from doing things needed for daily living?: no Has anyone in your life made you feel unsafe or unsupported?: no How hard is it for you to pay for the very basics like food, housing, medical care, and heating? Would you say it is:: Not hard at all Do you want help finding or keeping work or a job?: I do not need or want help If for any reason you need help with day-to-day activities such as bathing, preparing meals, shopping, managing finances, etc., do you get the help you need?: I don?t need any help How often do you feel lonely or isolated from those around you?: Never Do you speak a language other than Maltese at home?: No Does the patient want assistance with any of the above?: No Health Related Social Needs Health related social needs: housing instability, housed, with risk of homelessness (Z59.811) [facility] All Active Problems (Updated 11/04/24 @ 10:40 by Jose Monory) Acute exacerbation of chronic heart failure (Acute) Migraine (Chronic) Hypotension (Acute) Sinusitis (Acute) Elevated troponin (Chronic) Influenza A (Acute) Acute sinusitis (Acute) CKD stage 3b, GFR 30-44 ml/min (Chronic) Cough (Acute) URI (upper respiratory infection) (Acute) Abdominal pain (Acute) Diarrhea (Acute) Atypical migraine (Acute) Otalgia, right ear (Acute) Acute otitis media of right ear with perforated tympanic membrane (Acute) Non-ST elevation AK (NSTEMI) (Acute) Chronic kidney disease, stage III (moderate) (Acute) Hypermagnesemia (Acute) Acute hypokalemia (Acute) Ground glass opacity present on imaging of lung (Acute) Elevated troponin (Acute) CATIE (acute kidney injury) (Acute) Restrictive lung disease secondary to obesity (Acute) Allergic asthma (Acute) intermittent, controlled Dyspnea (Acute) Diarrhea (Acute) Congestive heart failure (Chronic) Sick euthyroidism (Acute) Carpal tunnel syndrome (Acute) GERD (gastroesophageal reflux disease) (Chronic) Bilateral renal artery stenosis (Acute) Encounter for weight loss counseling (Acute) Pulmonary emboli (Chronic) Arthritis of carpometacarpal (CMC) joint of left thumb (Acute) Avulsion fracture of right talus (Acute 12/30/21) Bilateral carpal tunnel syndrome (Acute) Paresthesia of hand, bilateral (Acute) Abnormal chest CT (Acute) Pulmonary hypertension (Chronic) Atypical chest pain (Acute) PSVT (paroxysmal supraventricular tachycardia) (Chronic) Acute non-ST elevation myocardial infarction (NSTEMI) (Acute) Elevated troponin I level (Acute) Right upper quadrant abdominal pain (Acute) Chronic heart failure with preserved ejection fraction (Chronic) Restless legs syndrome (Acute) Rhinitis, nonallergic, chronic (Acute) Tendinitis (Acute) Chest pain (Acute) Migraine headache without aura (Acute) Lichen sclerosus (Acute) MARYLOU (obstructive sleep apnea) (Chronic) Migraine with aura and without status migrainosus, not intractable (Acute 02/24/16) Medical History Myocardial infarction 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 Mild intermittent asthma Atherosclerosis of renal artery Heart failure Supraventricular tachycardia Atrial fibrillation Superior mesenteric artery stenosis (~03/10/22) see CTA abdomen and pelivs: 80% narrowing of SMA origin Renal artery stenosis (~03/10/22) right renal artery stenosis per CTA abomen/pelvis Hx of supraventricular tachycardia Infiltrate of lower lobe of left lung present on imaging study Acute non-ST elevation myocardial infarction (NSTEMI) COVID-19 Left lateral epicondylitis Arthritis of carpometacarpal (CMC) joint of left thumb Left wrist pain CHI (closed head injury) Acute bronchitis Non-ST elevation AK (NSTEMI) Insomnia Asthma Overweight Endometriosis Depression Surgical History History of radiofrequency ablation (RFA) procedure for cardiac arrhythmia Hx of tubal ligation History of partial hysterectomy Family History Daughter Migraines Mother Hypertension Father Heart disease Social History Smoking/Tobacco Use Status: Never Smoking risk assessment performed?: Yes Alcohol Intake: never Drug use: Never Substance use type: does not use Housing: house Current gender identity: female Do you feel safe at home: Yes Do you feel safe in your relationship?: Yes Female Reproductive History Menstrual Menopause type: surgical History History 2 Para 2 Hx # Term Pregnancies Multiple births Hx # Pregnancies Ectopic pregnancies AB induced Hx Number of Living Children AB spontaneous Readmission Within the Past 30 Days Yes or No: No
[2024-11-04] MEDS: Ranolazine 500 MG TABCR 1000 MG PO ×2 (15:08→20:22)
[2024-11-04] MEDS: Topiramate 100 MG TAB PO (20:23)
[2024-11-04] MEDS: Atorvastatin 40 MG TAB 80 MG PO (20:23)
[2024-11-04] MEDS: Gabapentin 600 MG TAB PO (20:23)
[2024-11-05] MEDS: nitroGLYcerin 2% 1 INCH/1 GM PKT TP ×2 (02:28→14:17)
[2024-11-05 02:44] VITALS: BP 92/63; PULSE 48; RESP 16; O2SAT 98
[2024-11-05] MEDS: Omeprazole 20 MG CAPCR 40 MG PO (06:15)
[2024-11-05 07:12] LABS: HCT 41.0 % (36.0-46.0); HGB 13.7 g/dL (11.2-15.7); MCH 33.3 pg (27.0-33.0); MCHC 33.4 % (32.0-36.0); MCV 100 fL (80-95); MPV 11.0 fL (8.0-11.0); Platelet Count 236 10^3/uL (130-400); RBC 4.12 10^6/uL (3.93-5.22); RDW 13.1 % (11.7-14.6); RDW-SD 48.2 fL; WBC 6.63 10^3/uL (4.4-10.8)
[2024-11-05 07:18] VITALS: BP 106/63; PULSE 52; RESP 16; TEMP 36.5; O2SAT 96
[2024-11-05 07:32] LABS: ALT 23 U/L (14-59); AST 12 U/L (15-37); Albumin 3.4 g/dL (3.4-5.0); Alkaline Phosphatase 51 U/L (46-116); Anion Gap 11.9 mmol/L (3-11); BUN 29 mg/dL (7-18); Bilirubin, Total 0.7 mg/dL (0.2-1.0); CO2 23.1 mmol/L (21.0-32.0); Calcium 8.9 mg/dL (8.5-10.1); Chloride 105 mmol/L (98-107); Estimated GFR 53.46 (mL/min/1.73m2); Glucose 101 mg/dL (74-106); Magnesium 2.3 mg/dL (1.8-2.4); Potassium 4.1 mmol/L (3.5-5.1); Sodium 140 mmol/L (136-145); Total Protein 7.0 g/dL (6.4-8.2)
[2024-11-05 07:51] LABS: Troponin I 233 ng/L (<or=51)
[2024-11-05] MEDS: Ranolazine 500 MG TABCR 1000 MG PO (10:31)
[2024-11-05] MEDS: Aspirin 81 MG CHEW CH (10:31)
[2024-11-05] MEDS: Potassium Chloride 20 MEQ TABCR 40 MEQ PO (10:31)
[2024-11-05] MEDS: Metoprolol CR 25 MG TABCR PO (10:31)
[2024-11-05] MEDS: Apixaban 5 MG TAB PO (10:31)
[2024-11-05] MEDS: DULoxetine 30 MG CAP 60 MG PO (10:32)
[2024-11-05] MEDS: Empaglifozin 10 MG TAB PO (10:32)
[2024-11-05] MEDS: Spironolactone 25 MG TAB PO (10:32)
[2024-11-05] MEDS: Furosemide 40 MG/4 ML VIAL IVP ×2 (10:33→18:16)
[2024-11-05] MEDS: Normal Saline Flush 10 ML SYR IVP (10:33)
[2024-11-05 11:02] VITALS: BP 105/58; PULSE 60; RESP 20; TEMP 36.4; O2SAT 98
[2024-11-05 15:06] VITALS: BP 102/71; PULSE 54; RESP 16; TEMP 36.6; O2SAT 98
--- NOTE | 2024-11-05 16:27 | PGE_ITS ---
Date of Service Date of service: 11/05/24 Time of Service: 16:28 Assessment and Plan Assessment and plan (1) Acute exacerbation of chronic heart failure: Start date: 11/04/24 Status: Acute Assessment and plan: This is a 54-year-old lady with history of right-sided CHF and CAD with clean coronary arteries by multiple catheterization with last performed in 2023. She currently has elevated troponins and these were elevated upon presentation but trending downward. She has CKD. She has been seen by [facility] with plans for nuclear stress testing with previous nuclear stress testing showing focal lesion but overall preserved left-ventricular ejection fraction. She has been off her diuretics for for 1 week with a misunderstanding at her [facility] appointment last week and she will reinitiate chronic diuretic therapy. She also was having chest pain with her exacerbation CHF and exertional dyspnea and chest pain as baseline worsening. She was not respond to nitroglycerin sublingually but has a Nitropatch to which is relieving her chest discomfort and making her breathing less difficult. She is on O2. She was admitted with plans for transfer to [facility] cardiology under Dr. Lloyd Flores's service when bed is available in the next 24 to 48 hours. They plan to at least update her echocardiogram. She will continue on IV Lasix 40 mg twice daily while hospitalized here. She overall is feeling galdino but frustrated by her continued exertional symptoms over the last months to years.. She is a full code. 11/05/24 Awaiting on xfer. Pt states that she has been told in the past that this is microvascular spasms/blockage. Wondering if anti-anginals would be appropriate. Troponin 263->286->233 (2) Chronic heart failure with preserved ejection fraction: Status: Chronic Assessment and plan: Patient will have updated echocardiogram when transferred to [facility]. Continue IV Lasix diuresis. Watch electrolytes and replenish if needed. (3) Elevated troponin: Status: Chronic Assessment and plan: Patient has have an elevated troponin which is trending downward and may be residual from her exertional symptoms with no evidence of acute ischemic process. She was not recommended to be placed on IV heparin. She most likely would not have cardiac catheterization but follow-up at [facility] for further evaluation of these recurrent symptoms. She does have a history of previous non-STEMI and focal wall motion abnormalities with previous nuclear stress testing. Continue to trend troponins while patient is hospitalized at this institution. If she worsens or if troponins begin to increase degree evaluate treatment plan and discussed with [facility] cardiology. 11/05/24 Pt states that her last cardiac cath was appx 15 months ago and was reported as normal and no interventions were necessary (4) PSVT (paroxysmal supraventricular tachycardia): Status: Chronic Assessment and plan: Patient is on metoprolol chronically and he does not remember having history of atrial fibrillation though this is on her problem list. She is on Eliquis for previous PE as well. She is on alarm security or surveillance monitor and is in sinus rhythm presently. Continue outpatient medical therapy including beta-tiffanie and anticoagulation. (5) Pulmonary hypertension: Status: Chronic Assessment and plan: Patient does have element of right-sided heart failure with pulmonary hypertension and COPD. She tends to have rapid decompensation with flash edema. (6) CKD stage 3b, GFR 30-44 ml/min: Status: Chronic Assessment and plan: Stable but monitor while on increased diuresis. She has had problems with worsening renal function in the past with overdiuresis. (7) MARYLOU (obstructive sleep apnea): Status: Chronic Assessment and plan: Continue outpatient BiPAP with outpatient settings. (8) GERD (gastroesophageal reflux disease): Status: Chronic Assessment and plan: Continue PPI. (9) Depression: Assessment and plan: Continue outpatient medical therapy. This is stable. Subjective Subjective Interval history since last seen: Pt seen and examined in her room this afternoon. Still no word on bed availability. Pt states chest pain has resolved. Headaches associated with nitro Exam Narrative Exam Narrative: heent-ncat mmm eomi perrla neck-no lad no jvd pulm-ctab abd-sntndbsa ext no cce Objective Last Vital Signs Temp 36.6 C 11/05/24 15:06 Pulse 54 L 11/05/24 15:06 Resp 16 11/05/24 15:06 BP 102/71 11/05/24 15:06 Pulse Ox 98 11/05/24 15:06 Laboratory Results - last 24 hr 11/05/24 06:23 WBC 6.63 RBC 4.12 Hgb 13.7 Hct 41.0 MCV 100 H MCH 33.3 H MCHC 33.4 RDW 13.1 Plt Count 236 MPV 11.0 Sodium 140 Potassium 4.1 Chloride 105 Carbon Dioxide 23.1 Anion Gap 11.9 H BUN 29 H Creatinine 1.2 H Est GFR (CKD-EPI 2020) 53.46 Glucose 101 Calcium 8.9 Magnesium 2.3 Total Bilirubin 0.7 AST 12 L ALT 23 Alkaline Phosphatase 51 Troponin I 233 H* Total Protein 7.0 Albumin 3.4 Time Spent with Patient Time Spent with Patient: 25-34 minutes Time was spent: preparing to see the patient(eg.review tests), obtaining and/or reviewing separately otained hiistory, ordering medications,tests, procedures, referring, communicating with other health wound care nurse, indepentently interpreting results, counseling the patient and care coordination
--- NOTE | 2024-11-05 17:46 | NUR.NOTE ---
Access chart to see where pt was; [facility] [place] asking about her. Transferred to [place]. Nursing Note:
--- NOTE | 2024-11-05 17:56 | DSE_ITS ---
Date of service: 11/05/24 Time of Service: 17:56 DS: Diagnosis Discharge Diagnosis (1) Acute exacerbation of chronic heart failure: Status: Acute (2) Chronic heart failure with preserved ejection fraction: Status: Chronic (3) Elevated troponin: Status: Chronic (4) PSVT (paroxysmal supraventricular tachycardia): Status: Chronic (5) Pulmonary hypertension: Status: Chronic (6) CKD stage 3b, GFR 30-44 ml/min: Status: Chronic (7) MARYLOU (obstructive sleep apnea): Status: Chronic (8) GERD (gastroesophageal reflux disease): Status: Chronic (9) Depression: Discharge Plan Disposition Patient Disposition: Transfer-Acute Inpatient Care Specific Acute Inpt Facility: [facility] Condition: Serious Discharge Details Reason For Visit: Acute CHF, Elevated troponin, CKD Admit Date/Time: 11/04/24 04:04 Admit Provider: Jose Monroy Attending Provider: Jose Monroy Primary Care Provider: Polo Pearce Hospital Course Hospital Course: This is a 54-year-old female who presents with signs and symptoms consistent with acute coronary syndrome. Workup in the ED was noted to have elevations in her troponins. On-call to [facility] was placed requested a transfer for further cardiac evaluation and patient was accepted into the service of Dr. Flores. Patient told me that she had a cardiac cath approximately 15 months ago and no intervention was recommended or performed. Patient presented with chest pains and had as mentioned an elevated troponin. On the at approximately 1800 she was excepted in transfer and will be discharged down to [facility]. Orders on discharge include continuous cardiac monitoring and route. Nitroglycerin as needed. Home Meds and New Rx's Prescriptions: No Action ropinirole 1 mg tablet 1 mg PO BID Rx Instructions: @ 1600 and 2100 Wegovy 0.5 mg/0.5 mL pen injector 0.5 mg subcut QWEEK Rx Instructions: administer weeks 5 through 8 of therapy Ubrelvy 50 mg tablet 50 mg PO ONCE PRN Rx Instructions: as a single dose; may repeat once in >=2 hours after first dose if needed topiramate [Topamax] 100 mg tablet 100 mg PO QHS Qty: 90 3RF Aimovig Autoinjector 140 mg/mL auto-injector 140 mg subcut QMONTH Qty: 1 11RF fluticasone propionate [Flonase Allergy Relief] 9.9 ML spray,suspension 2 spray NS DAILY PRN duloxetine [Cymbalta] 60 mg capsule,delayed release(DR/EC) 60 mg PO DAILY Qty: 30 2RF albuterol sulfate 90 mcg/actuation HFA aerosol inhaler 2 puff inhalation Q4H PRN loratadine [Allergy Relief (loratadine)] 10 mg tablet 10 mg PO DAILY PRN nitroglycerin 0.4 mg tablet, sublingual 0.4 mg sublingual Q5M PRN Rx Instructions: do not exceed 3 doses per episode apixaban 5 mg tablet 5 mg PO BID Jardiance 10 mg tablet 10 mg PO DAILY ranolazine 1,000 mg tablet extended release 12 hr 1,000 mg PO BID montelukast 10 mg tablet 10 mg PO DAILY PRN gabapentin 600 mg tablet 600 mg PO QHS Qty: 90 3RF melatonin 10 mg capsule 10 mg PO HS PRN metoprolol succinate 25 mg tablet extended release 24 hr 25 mg PO DAILY Patient Comments: TAKE ONE TABLET BY MOUTH EVERY DAY aspirin 81 mg tablet,delayed release (DR/EC) 81 mg PO DAILY Patient Comments: TAKE ONE TABLET BY MOUTH EVERY DAY spironolactone 25 mg tablet 25 mg PO QAM Patient Comments: TAKE ONE TABLET BY MOUTH EVERY DAY torsemide 20 mg Tablet 20 mg PO DAILY Qty: 90 0RF metolazone 2.5 mg tablet 2.5 mg PO PRN PRNQty: 0 0RF potassium chloride 20 mEq tablet extended release 40 meq PO BID Patient Comments: TAKE TWO TABLETS BY MOUTH TWICE A DAY atorvastatin 40 mg tablet 40 mg PO QPM Patient Comments: TAKE ONE TABLET BY MOUTH EVERY EVENING omeprazole 40 mg capsule,delayed release(DR/EC) 40 mg PO DAILY Patient Comments: TAKE ONE CAPSULE BY MOUTH EVERY DAY Discharge Instructions Activity:: Activity as Tolerated Equipment/Supplies:: No Equipment Needed Diet:: As Tolerated Discharge Orders Discharge Orders: Discharge Order (Routine); Ordered 11/05/24 Ordered By: Leon Loving DS: Summary Time Spent with Patient providing and/or coordinating discharge services: Less than 30 minutes Status at Discharge Functional status at discharge: independent ambulation Overall status at discharge: patient is progressing back to baseline Mental Status: mental status grossly normal Speech and Movement: speech and movement normal Mood: congruent mood Affect: normal affect Quality:SDOH Health Related Social Needs: Health related social needs risk of homeless Exam Narrative Exam Narrative: heent-ncat mmm eomi perrla neck-no lad no jvd pulm-ctab abd-sntndbsa ext no cce Psych Mental Status: mental status grossly normal Speech and Movement: speech and movement normal Mood: congruent mood Affect: normal affect DS: Data Vitals/I&O Vitals and I&O: Vital Signs Temperature 36.6 C 11/05/24 15:06 Temperature Source Temporal Artery Scan 11/05/24 15:06 Pulse 54 L 11/05/24 15:06 Pulse Rhythm Regular 11/04/24 05:09 Respiratory Rate 16 11/05/24 15:06 Respiratory Effort Non-Labored 11/04/24 05:09 Respiratory Depth Normal 11/04/24 05:09 Respiratory Pattern Normal 11/04/24 05:09 Blood Pressure 102/71 11/05/24 15:06 Blood Pressure Mean 81 11/05/24 15:06 Blood Pressure Position Sitting 11/04/24 01:27 Pulse Oximetry 98 11/05/24 15:06 Oxygen Delivery Method Room Air 11/05/24 15:06 Oxygen Flow Rate 0 11/05/24 15:06 Fraction of Inspired Oxygen (FIO2) 21 11/04/24 21:14 Pain Level 0 11/04/24 22:27 Comment Low HR and BP baseline for pt; pt states HR normally around 50. No c/o chest pain or SOB. 11/05/24 02:44 Intake & Output 11/04/24 11/05/24 11/05/24 23:59 11:59 23:59 Intake Total 480 / 480 Output Total 900 / 3325 500 / 1400 900 / 1400 Balance -890 / -3315 -20 / -920 -900 / -920 Weight 102.058 kg Intake: IV Oral 480 / 480 Output: Urine 900 / 3325 500 / 1400 900 / 1400 Other: Urine Color Yellow Straw Straw Urine Appearance Clear Clear Clear Urine Odor Normal Normal Data Completed and Pending Labs on day of discharge: Labs from last 24 hours 11/05/24 06:23 WBC 6.63 RBC 4.12 Hgb 13.7 Hct 41.0 MCV 100 H MCH 33.3 H MCHC 33.4 RDW 13.1 Plt Count 236 MPV 11.0 Sodium 140 Potassium 4.1 Chloride 105 Carbon Dioxide 23.1 Anion Gap 11.9 H BUN 29 H Creatinine 1.2 H Est GFR (CKD-EPI 2020) 53.46 Glucose 101 Calcium 8.9 Magnesium 2.3 Total Bilirubin 0.7 AST 12 L ALT 23 Alkaline Phosphatase 51 Troponin I 233 H* Total Protein 7.0 Albumin 3.4 Preliminary micro results at discharge 11/04/24 02:50 Blood Blood Culture - Preliminary NO GROWTH 24 HOURS 11/04/24 01:50 Blood Blood Culture - Preliminary NO GROWTH 24 HOURS PFSH All Active Problems (Updated 11/04/24 @ 10:40 by Jose Monroy) Acute exacerbation of chronic heart failure (Acute) Migraine (Chronic) Hypotension (Acute) Sinusitis (Acute) Elevated troponin (Chronic) Influenza A (Acute) Acute sinusitis (Acute) CKD stage 3b, GFR 30-44 ml/min (Chronic) Cough (Acute) URI (upper respiratory infection) (Acute) Abdominal pain (Acute) Diarrhea (Acute) Atypical migraine (Acute) Otalgia, right ear (Acute) Acute otitis media of right ear with perforated tympanic membrane (Acute) Non-ST elevation NE (NSTEMI) (Acute) Chronic kidney disease, stage III (moderate) (Acute) Hypermagnesemia (Acute) Acute hypokalemia (Acute) Ground glass opacity present on imaging of lung (Acute) Elevated troponin (Acute) CATIE (acute kidney injury) (Acute) Restrictive lung disease secondary to obesity (Acute) Allergic asthma (Acute) intermittent, controlled Dyspnea (Acute) Diarrhea (Acute) Congestive heart failure (Chronic) Sick euthyroidism (Acute) Carpal tunnel syndrome (Acute) GERD (gastroesophageal reflux disease) (Chronic) Bilateral renal artery stenosis (Acute) Encounter for weight loss counseling (Acute) Pulmonary emboli (Chronic) Arthritis of carpometacarpal (CMC) joint of left thumb (Acute) Avulsion fracture of right talus (Acute 12/30/21) Bilateral carpal tunnel syndrome (Acute) Paresthesia of hand, bilateral (Acute) Abnormal chest CT (Acute) Pulmonary hypertension (Chronic) Atypical chest pain (Acute) PSVT (paroxysmal supraventricular tachycardia) (Chronic) Acute non-ST elevation myocardial infarction (NSTEMI) (Acute) Elevated troponin I level (Acute) Right upper quadrant abdominal pain (Acute) Chronic heart failure with preserved ejection fraction (Chronic) Restless legs syndrome (Acute) Rhinitis, nonallergic, chronic (Acute) Tendinitis (Acute) Chest pain (Acute) Migraine headache without aura (Acute) Lichen sclerosus (Acute) MARYLOU (obstructive sleep apnea) (Chronic) Migraine with aura and without status migrainosus, not intractable (Acute 02/24/16) Medical History Myocardial infarction 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 Mild intermittent asthma Atherosclerosis of renal artery Heart failure Supraventricular tachycardia Atrial fibrillation Superior mesenteric artery stenosis (~03/10/22) see CTA abdomen and pelivs: 80% narrowing of SMA origin Renal artery stenosis (~03/10/22) right renal artery stenosis per CTA abomen/pelvis Hx of supraventricular tachycardia Infiltrate of lower lobe of left lung present on imaging study Acute non-ST elevation myocardial infarction (NSTEMI) COVID-19 Left lateral epicondylitis Arthritis of carpometacarpal (CMC) joint of left thumb Left wrist pain CHI (closed head injury) Acute bronchitis Non-ST elevation NE (NSTEMI) Insomnia Asthma Overweight Endometriosis Depression Surgical History History of radiofrequency ablation (RFA) procedure for cardiac arrhythmia Hx of tubal ligation History of partial hysterectomy Family History Daughter Migraines Mother Hypertension Father Heart disease Social History Smoking/Tobacco Use Status: Never Smoking risk assessment performed?: Yes Alcohol Intake: never Drug use: Never Substance use type: does not use Housing: house Current gender identity: female Do you feel safe at home: Yes Do you feel safe in your relationship?: Yes Female Reproductive History Menstrual Menopause type: surgical History History 2 Para 2 Hx # Term Pregnancies Multiple births Hx # Pregnancies Ectopic pregnancies AB induced Hx Number of Living Children AB spontaneous Time Spent with Patient Time Spent with Patient: <45 minutes Time was spent: preparing to see the patient(eg.review tests), obtaining and/or reviewing separately otained hiistory, ordering medications,tests, procedures, referring, communicating with other health care rep, indepentently interpreting results, counseling the patient and care coordination
--- NOTE | 2024-11-05 18:12 | W.PC.ACHO ---
Registration Status: ADM IN Primary Language: Preferred Language: Malay ED Information & Data Chief Complaint Chest Pain 11/04/24 02:01 Other Complaint RespSymp 11/04/24 01:27 Triage Note Pt has been experiencing a 11/04/24 01:27 steadily worsening persistent cough and SOB w/ exertion. Has heart failure. Now having worsening crushing L chest pain, jaw and shoulder pain. 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 Mild intermittent asthma Atherosclerosis of renal artery Heart failure Supraventricular tachycardia Atrial fibrillation Superior mesenteric artery stenosis (~03/10/22) Renal artery stenosis (~03/10/22) Hx of supraventricular tachycardia Infiltrate of lower lobe of left lung present on imaging study Acute non-ST elevation myocardial infarction (NSTEMI) COVID-19 Left lateral epicondylitis Arthritis of carpometacarpal (CMC) joint of left thumb Left wrist pain CHI (closed head injury) Acute bronchitis Non-ST elevation [place] (NSTEMI) Insomnia Asthma Overweight Endometriosis Depression (Last Reviewed 11/04/24 @ 10:13 by Jose Monroy) History of radiofrequency ablation (RFA) procedure for cardiac arrhythmia Hx of tubal ligation History of partial hysterectomy Most Recent Vital Signs Temperature 36.6 C 11/05/24 15:06 Temperature Source Temporal Artery Scan 11/05/24 15:06 Pulse 54 L 11/05/24 15:06 Pulse Rhythm Regular 11/04/24 05:09 Respiratory Rate 16 11/05/24 15:06 Respiratory Effort Non-Labored 11/04/24 05:09 Respiratory Depth Normal 11/04/24 05:09 Respiratory Pattern Normal 11/04/24 05:09 Blood Pressure 102/71 11/05/24 15:06 Blood Pressure Mean 81 11/05/24 15:06 Blood Pressure Position Sitting 11/04/24 01:27 Pulse Oximetry 98 11/05/24 15:06 Oxygen Delivery Method Room Air 11/05/24 15:06 Oxygen Flow Rate 0 11/05/24 15:06 Fraction of Inspired Oxygen (FIO2) 21 11/04/24 21:14 Pain Level 0 11/04/24 22:27 Comment Low HR and BP baseline for pt; pt states HR normally around 50. No c/o chest pain or SOB. 11/05/24 02:44 Allergies clobetasol Adverse Reaction (Intermediate, Verified 11/04/24 01:32) Skin Rash codeine Adverse Reaction (Mild, Verified 11/04/24 01:32) Not able to sleep ibuprofen Adverse Reaction (Unverified 11/04/24 01:32) migraines environmental Allergy (Mild, Uncoded 11/04/24 01:32) sneezing/triggers her asthma Precautions Isolation Standard precaution 11/04/24 01:54 Active Medications Generic Name Dose Route Start Last Admin Trade Name Freq PRN Reason Stop Dose Admin Acetaminophen 650 mg 11/04/24 06:21 11/04/24 15:02 Acetaminophen 325 Mg Tab PO 650 mg Q4H PRN PRN Administration Apixaban 5 mg 11/04/24 08:30 11/05/24 10:31 Apixaban 5 Mg Tab PO 5 mg BID JOSE Administration Aspirin 81 mg 11/04/24 08:30 11/05/24 10:31 Aspirin 81 Mg Chew CH 81 mg DAILY JOSE Administration Atorvastatin Calcium 80 mg 11/04/24 20:00 11/04/24 20:23 Atorvastatin 40 Mg Tab PO 80 mg QPM JOSE Administration Duloxetine HCl 60 mg 11/04/24 08:30 11/05/24 10:32 Duloxetine 30 Mg Cap PO 60 mg DAILY JOSE Administration Empagliflozin 10 mg 11/04/24 08:30 11/05/24 10:32 Empaglifozin 10 Mg Tab PO 10 mg DAILY JOSE Administration Furosemide 40 mg 11/04/24 08:00 11/05/24 10:33 Furosemide 40 Mg/4 Ml Vial IVP 40 mg BID@0800,1600 JOSE Administration Gabapentin 600 mg 11/04/24 20:00 11/04/24 20:23 Gabapentin 600 Mg Tab PO 600 mg HS JOSE Administration Metoprolol Succinate 25 mg 11/04/24 08:30 11/05/24 10:31 Metoprolol Cr 25 Mg Tabcr PO 25 mg DAILY JOSE Administration Nitroglycerin 1 gm 11/04/24 08:00 11/05/24 14:17 Nitroglycerin 2% 1 Inch/1 Gm Pkt TP 1 gm Q6H JOSE Administration Omeprazole 40 mg 11/04/24 07:30 11/05/24 06:15 Omeprazole 20 Mg Capcr PO 40 mg DAILY@0730 JOSE Administration Potassium Chloride 40 meq 11/04/24 08:30 11/05/24 10:31 Potassium Chloride 20 Meq Tabcr PO 40 meq BID JOSE Administration Ranolazine 1,000 mg 11/04/24 08:30 11/05/24 10:31 Ranolazine 500 Mg Tabcr PO 1,000 mg BID JOSE Administration Ropinirole HCl 1 mg 11/04/24 16:00 11/04/24 20:23 Ropinirole 1 Mg Tab PO 1 mg 1600,2100 JOSE Administration Sodium Chloride 0 ml 11/04/24 08:30 11/05/24 10:33 Normal Saline Flush 10 Ml Syr IVP 10 ml BID JOSE Administration Spironolactone 25 mg 11/05/24 08:30 11/05/24 10:32 Spironolactone 25 Mg Tab PO 25 mg QAM JOSE Administration Topiramate 100 mg 11/04/24 20:00 11/04/24 20:23 Topiramate 100 Mg Tab PO 100 mg HS JOSE Administration IV IV Catheter Type [Right Saline Lock Antecubital] IV Catheter Gauge [Right 18 Antecubital] Diagnostics 11/05/24 Range/Units 06:23 WBC 6.63 (4.4-10.8) 10^3/uL RBC 4.12 (3.93-5.22) 10^6/uL Hgb 13.7 (11.2-15.7) g/dL Hct 41.0 (36.0-46.0) % MCV 100 H (80-95) fL MCH 33.3 H (27.0-33.0) pg MCHC 33.4 (32.0-36.0) % RDW 13.1 (11.7-14.6) % Plt Count 236 (130-400) 10^3/uL MPV 11.0 (8.0-11.0) fL Sodium 140 (136-145) mmol/L Potassium 4.1 (3.5-5.1) mmol/L Chloride 105 (98-107) mmol/L Carbon Dioxide 23.1 (21.0-32.0) mmol/L Anion Gap 11.9 H (3-11) mmol/L BUN 29 H (7-18) mg/dL Creatinine 1.2 H (0.55-1.02) mg/dL Est GFR (CKD-EPI 2020) 53.46 (mL/min/1.73m2) Glucose 101 (74-106) mg/dL Calcium 8.9 (8.5-10.1) mg/dL Magnesium 2.3 (1.8-2.4) mg/dL Total Bilirubin 0.7 (0.2-1.0) mg/dL AST 12 L (15-37) U/L ALT 23 (14-59) U/L Alkaline Phosphatase 51 (46-116) U/L Troponin I 233 H* (<or=51) ng/L Total Protein 7.0 (6.4-8.2) g/dL Albumin 3.4 (3.4-5.0) g/dL 11/04/24 02:50 Blood Culture - Preliminary Blood NO GROWTH 24 HOURS 11/04/24 01:50 Blood Culture - Preliminary Blood NO GROWTH 24 HOURS Intake and Output - 24 Hour Total 11/04/24 01:22 thru 11/05/24 18:07 Intake Total 490 Output Total 5025 Balance -4535 Weight 102.058 kg Intake: IV 10 Oral 480 Output: Urine 5025 Other: Urine Color Yellow Urine Appearance Clear Urine Odor Normal # Voids 1 # Bowel Movements 1 Falls Risk Assessment History of Falls No History 11/04/24 05:09 Contributing Factors No Factors 11/04/24 05:09 Ambulatory Aids Independent 11/04/24 05:09 Tubes/Lines None 11/04/24 01:54 Gait Evaluation No gait disturbance 11/04/24 05:09 Cognition No cognitive impairment 11/04/24 01:54 Fall Total Score 0 11/04/24 05:09 Level of Risk Standard/Low Risk 11/04/24 05:09 Problems (Last Reviewed 11/04/24 @ 10:13 by Jose Monroy) Acute exacerbation of chronic heart failure (Acute) Elevated troponin (Chronic) CKD stage 3b, GFR 30-44 ml/min (Chronic) Congestive heart failure (Chronic) GERD (gastroesophageal reflux disease) (Chronic) Pulmonary hypertension (Chronic) PSVT (paroxysmal supraventricular tachycardia) (Chronic) Chronic heart failure with preserved ejection fraction (Chronic) MARYLOU (obstructive sleep apnea) (Chronic) Notes 11/05/24 17:46 Nursing Notes by Lorena Israel Access chart to see where pt was; [facility] pt [place] called asking about her. Transferred to [place]. Nursing Note: Initialized on 11/05/24 17:46 - END OF NOTE v v v v v v v v v Sending and/or Receiving Nurses: Please use comment section below to note any information pertinent to the patient hand-off not included above. Information / Comments: Report received from: Handoff given to Aspen Mayes at 1810 to [facility] on the [facility].
[2024-11-05] MEDS: rOPINIRole 1 MG TAB PO (18:16)
== END 2024-11-05 18:55 | disposition short-term general hospital (02) | DRG 311 ==
LOC: ER 04:16 → MS 04:55
PROVIDERS: Admitting Provider Family Medicine; Emergency Provider Emergency Medicine Emergency Medical Services; PCP Physician Assistant; Responsible Provider Hospitalist; Visit Provider Family Medicine
DX: I24.9 Acute ischemic heart disease, unspecified (principal); I50.33 Acute on chronic diastolic (congestive) heart failure; I47.10 Supraventricular tachycardia, unspecified; R74.8 Abnormal levels of other serum enzymes; N18.32 Chronic kidney disease, stage 3b; I27.20 Pulmonary hypertension, unspecified; G47.33 Obstructive sleep apnea (adult) (pediatric); K21.9 Gastro-esophageal reflux disease without esophagitis; I25.10 Atherosclerotic heart disease of native coronary artery without angina pectoris; F32.A Depression, unspecified; Z79.01 Long term (current) use of anticoagulants; Z86.711 Personal history of pulmonary embolism; G43.909 Migraine, unspecified, not intractable, without status migrainosus; I25.2 Old myocardial infarction; E87.6 Hypokalemia; E83.41 Hypermagnesemia; E07.81 Sick-euthyroid syndrome; G25.81 Restless legs syndrome; J45.20 Mild intermittent asthma, uncomplicated; G47.00 Insomnia, unspecified; E66.3 Overweight; Z79.85 Long-term (current) use of injectable non-insulin antidiabetic drugs; Z68.38 Body mass index [BMI] 38.0-38.9, adult
CPT/HCPCS: 00123; 36415; 80048; 80053; 85027; 87040; 87637; 93005; 94640; 96374; 96375; 99285; 71045; 83735; 83880; 84439; 84443; 84484; 85025; 85610; 93010; 99223; 99238; J1938; J2405; J3490; J7620

== ENCOUNTER 2024-11-15 14:36 | Outpatient (REF) | payer BC, SELFPAY ==
[2024-11-15 16:31] LABS: Anion Gap 10.1 mmol/L (3-11); BUN 20 mg/dL (7-18); CO2 24.9 mmol/L (21.0-32.0); Calcium 8.8 mg/dL (8.5-10.1); Chloride 108 mmol/L (98-107); Estimated GFR 48.56 (mL/min/1.73m2); Glucose 92 mg/dL (74-106); NT-proBNP 2455 pg/mL (<300); Potassium 4.6 mmol/L (3.5-5.1); Sodium 143 mmol/L (136-145)
== END 2024-11-15 14:37 | disposition home or self-care (01) ==
LOC: NCHCN 14:36
PROVIDERS: PCP Physician Assistant; Visit Provider Physician Assistant
DX: I50.9 Heart failure, unspecified (principal)
CPT/HCPCS: 80048; 83880

== ENCOUNTER 2024-12-24 07:13 | Emergency (ER) | payer BC, SELFPAY ==
[2024-12-24 07:16] VITALS: BP 110/62; PULSE 57; RESP 16; TEMP 36.4; O2SAT 98
[2024-12-24] MEDS: predniSONE 20 MG TAB 40 MG PO (08:05)
[2024-12-24] MEDS: Famotidine 20 MG TAB 40 MG PO (08:05)
[2024-12-24] MEDS: Cetirizine 10 MG TAB PO (08:05)
--- NOTE | 2024-12-24 09:05 | W.ED.GENAD ---
Discharge Plan Disposition Patient Disposition: Home Discharge Details Clinical Impression: Urticaria Primary Care Provider: Polo Pearce ED Provider: Taran Tellez Home Meds and New Rx's Prescriptions: New famotidine 40 mg tablet 40 mg PO DAILY Qty: 10 0RF cetirizine 10 mg tablet 10 mg PO DAILY PRNQty: 30 0RF prednisone 20 mg tablet 20 mg PO DAILY Qty: 3 0RF Continued ropinirole 1 mg tablet 1 mg PO BID Rx Instructions: @ 1600 and 2100 Wegovy 0.5 mg/0.5 mL pen injector 0.5 mg subcut QWEEK Rx Instructions: administer weeks 5 through 8 of therapy isosorbide mononitrate 30 mg tablet extended release 24 hr 30 mg PO DAILY amlodipine 2.5 mg tablet 2.5 mg PO DAILY ezetimibe 10 mg tablet 10 mg PO DAILY rosuvastatin 40 mg tablet 40 mg PO DAILY Aimovig Autoinjector 140 mg/mL auto-injector 140 mg subcut QMONTH Qty: 1 11RF topiramate [Topamax] 100 mg tablet 100 mg PO QHS Qty: 90 4RF Ubrelvy 100 mg tablet 100 mg PO ONCE PRN (Reason: headache) Qty: 16 12RF Rx Instructions: as a single dose; may repeat once in >=2 hours after first dose if needed fluticasone propionate [Flonase Allergy Relief] 9.9 ML spray,suspension 2 spray NS DAILY PRN duloxetine [Cymbalta] 60 mg capsule,delayed release(DR/EC) 60 mg PO DAILY Qty: 30 2RF albuterol sulfate 90 mcg/actuation HFA aerosol inhaler 2 puff inhalation Q4H PRN loratadine [Allergy Relief (loratadine)] 10 mg tablet 10 mg PO DAILY PRN nitroglycerin 0.4 mg tablet, sublingual 0.4 mg sublingual Q5M PRN Rx Instructions: do not exceed 3 doses per episode apixaban 5 mg tablet 5 mg PO BID Jardiance 10 mg tablet 10 mg PO DAILY ranolazine 1,000 mg tablet extended release 12 hr 1,000 mg PO BID montelukast 10 mg tablet 10 mg PO DAILY PRN gabapentin 600 mg tablet 600 mg PO QHS Qty: 90 3RF melatonin 10 mg capsule 10 mg PO HS PRN metoprolol succinate 25 mg tablet extended release 24 hr 25 mg PO DAILY Patient Comments: TAKE ONE TABLET BY MOUTH EVERY DAY aspirin 81 mg tablet,delayed release (DR/EC) 81 mg PO DAILY Patient Comments: TAKE ONE TABLET BY MOUTH EVERY DAY spironolactone 25 mg tablet 25 mg PO QAM Patient Comments: TAKE ONE TABLET BY MOUTH EVERY DAY torsemide 20 mg Tablet 20 mg PO DAILY Qty: 90 0RF potassium chloride 20 mEq tablet extended release 40 meq PO BID Patient Comments: TAKE TWO TABLETS BY MOUTH TWICE A DAY omeprazole 40 mg capsule,delayed release(DR/EC) 40 mg PO DAILY Patient Comments: TAKE ONE CAPSULE BY MOUTH EVERY DAY Discharge Instructions Instructions: Donna Additional Instructions: Please follow-up with your primary care provider regarding your visit to the emergency department today. Be sure to discuss results of all test performed here today to include radiology, and laboratory testing as well as results for any pending cultures. Should your symptoms worsen, or if you develop new concerning symptoms, please return immediately emergency department for further evaluation. HPI General Date/Time Provider Initiated Documentation: 12/24/24 07:30. HPI Narrative: MDM/Narrative: Initial Assessment: 54-year-old female with rash, itching, and swelling. Recent sinus and bronchial infection treated with amoxicillin. Differential Diagnosis: - Allergic reaction to antibiotics: Recent amoxicillin use; no prior antibiotic reactions; plan cetirizine and famotidine; consider steroids if no improvement. - Postviral urticarial rash: Recent viral illness; plan to monitor response to antihistamines and steroids. ED course: On reassessment, significant proving of urticarial rash and pruritus. Will discharge patient with prescription for cetirizine, famotidine and 3-day supply prednisone. ED Course: - Cetirizine administered - Famotidine administered Final Assessment: Administered cetirizine and famotidine for suspected allergic reaction or postviral urticarial rash. Monitor response; consider steroids if no improvement. Clinical Impression: - Urticaria Disposition: - Follow-Up: Consult color receiver if symptoms recur without preceding viral illness. Patient Education: Discussed potential allergic reaction and postviral urticarial rash. Explained medication regimen and advised follow-up with color receiver if symptoms persist or recur. This document was created with assistance from [employer] The patient consented to its use. HPI: The patient is a 54-year-old female with a significant cardiac history who presents with a rash and severe pruritus. The onset of urticaria and angioedema of the lips occurred on 12/23/2024, with the urticaria subsequently spreading to the buttocks, inframammary regions, and scalp. The lip swelling has since resolved, and the urticaria has slightly diminished. The patient reports otalgia secondary to excoriation. She has abstained from taking any medications today due to concerns about potential adverse reactions. She denies pyrexia. The patient recently completed a course of amoxicillin-clavulanic acid 1-2 days ago for a sinus and bronchial infection that persisted for 1-2 weeks. She continues to experience a cough, which is less severe than previously. There is no history of antibiotic hypersensitivity reactions. Examination reveals no lesions on the soles of her feet. ROS: Negative besides as mentioned above Exam: Vital signs: Reviewed. General Appearance: No distress. HEENT: Itchy scalp with small welts. Swollen, painful ears. Neck: Supple, full range of motion, no observable masses, No meningeal sign. Respiratory: No Respiratory distress. No tachypnea. Cardiovascular: RRR, no edema. Gastrointestinal: Soft, nondistended, No rebound tenderness. Back: No midline tenderness to palpation or palpable step-offs of the C/T/L spine. Skin: Urticarial rash with welts on scalp, under breasts, and buttocks. Neurological: Normal Gait, Grossly intact. Psychiatric: Appropriate for situation. Related Data Home Medications ?Medication ?Instructions ?Recorded ?Confirmed fluticasone propionate 50 2 spray NS DAILY PRN 12/23/16 12/24/24 mcg/actuation nasal spray,suspension (Flonase Allergy Relief) ropinirole 1 mg tablet 1 mg PO BID 06/12/20 12/24/24 duloxetine 60 mg capsule,delayed 60 mg PO DAILY #30 mg 08/19/20 12/24/24 release (Cymbalta) albuterol sulfate 90 mcg/actuation 2 puff inhalation Q4H PRN 05/30/21 12/24/24 aerosol inhaler loratadine 10 mg tablet (Allergy 10 mg PO DAILY PRN 05/30/21 12/24/24 Relief (loratadine)) nitroglycerin 0.4 mg sublingual 0.4 mg sublingual Q5M PRN 09/25/21 12/24/24 tablet melatonin 10 mg capsule 10 mg PO HS PRN 04/16/23 12/24/24 apixaban 5 mg tablet 5 mg PO BID 08/13/23 12/24/24 empagliflozin 10 mg tablet 10 mg PO DAILY 08/13/23 12/24/24 (Jardiance) ranolazine 1,000 mg 1,000 mg PO BID 08/13/23 12/24/24 tablet,extended release,12 hr montelukast 10 mg tablet 10 mg PO DAILY PRN 09/16/23 12/24/24 torsemide 20 mg tablet 20 mg PO DAILY #90 tabs 09/25/23 12/24/24 semaglutide (weight loss) 0.5 0.5 mg subcut QWEEK 01/19/24 12/24/24 mg/0.5 mL subcutaneous pen injector (Shanna) gabapentin 600 mg tablet 600 mg PO QHS #90 tabs 03/14/24 12/24/24 potassium chloride 20 mEq 40 meq PO BID 04/21/24 12/24/24 tablet,extended release omeprazole 40 mg capsule,delayed 40 mg PO DAILY 04/22/24 12/24/24 release aspirin 81 mg tablet,delayed 81 mg PO DAILY 11/04/24 12/24/24 release metoprolol succinate 25 mg 25 mg PO DAILY 11/04/24 12/24/24 tablet,extended release 24 hr spironolactone 25 mg tablet 25 mg PO QAM 11/04/24 12/24/24 amlodipine 2.5 mg tablet 2.5 mg PO DAILY 11/13/24 12/24/24 erenumab-aooe 140 mg/mL 140 mg subcut QMONTH #1 mL 11/13/24 12/24/24 subcutaneous auto-injector (Aimovig Autoinjector) ezetimibe 10 mg tablet 10 mg PO DAILY 11/13/24 12/24/24 isosorbide mononitrate 30 mg 30 mg PO DAILY 11/13/24 12/24/24 tablet,extended release 24 hr rosuvastatin 40 mg tablet 40 mg PO DAILY 11/13/24 12/24/24 topiramate 100 mg tablet (Topamax) 100 mg PO QHS #90 tab-caps 11/13/24 12/24/24 ubrogepant 100 mg tablet (Ubrelvy) 100 mg PO ONCE PRN headache #16 11/13/24 12/24/24 tabs cetirizine 10 mg tablet 10 mg PO DAILY PRN #30 tabs 12/24/24 famotidine 40 mg tablet 40 mg PO DAILY #10 tabs 12/24/24 prednisone 20 mg tablet 20 mg PO DAILY #3 tabs 12/24/24 Previous Rx's ?Medication ?Instructions ?Recorded duloxetine 60 mg capsule,delayed 60 mg PO DAILY #30 mg 08/19/20 release (Cymbalta) torsemide 20 mg tablet 20 mg PO DAILY #90 tabs 09/25/23 gabapentin 600 mg tablet 600 mg PO QHS #90 tabs 03/14/24 erenumab-aooe 140 mg/mL 140 mg subcut QMONTH #1 mL 11/13/24 subcutaneous auto-injector (Aimovig Autoinjector) topiramate 100 mg tablet (Topamax) 100 mg PO QHS #90 tab-caps 11/13/24 ubrogepant 100 mg tablet (Ubrelvy) 100 mg PO ONCE PRN headache #16 11/13/24 tabs cetirizine 10 mg tablet 10 mg PO DAILY PRN #30 tabs 12/24/24 famotidine 40 mg tablet 40 mg PO DAILY #10 tabs 12/24/24 prednisone 20 mg tablet 20 mg PO DAILY #3 tabs 12/24/24 Allergies Allergy/AdvReac Type Severity Reaction Status Date / Time clobetasol AdvReac Intermediate Skin Rash Verified 12/24/24 07:20 codeine AdvReac Mild Not able Verified 12/24/24 07:20 to sleep ibuprofen AdvReac migraines Unverified 12/24/24 07:20 environmental Allergy Mild sneezing/triggers Uncoded 12/24/24 07:20 her asthma General Stated Complaint: RashLesion MIKAELA: 3 Course Vital Signs Vital signs: Vital Signs Temperature 36.4 C 12/24/24 07:16 Pulse 57 L 12/24/24 07:16 Respiratory Rate 16 12/24/24 07:16 Blood Pressure 110/62 12/24/24 07:16 Pulse Oximetry 98 12/24/24 07:16 Temperature 36.4 C 12/24/24 07:16 Temperature Source Oral 12/24/24 07:16 Pulse 57 L 12/24/24 07:16 Respiratory Rate 16 12/24/24 07:16 Blood Pressure 110/62 12/24/24 07:16 Pulse Oximetry 98 12/24/24 07:16 Oxygen Delivery Method Room Air 12/24/24 07:16 Oxygen Flow Rate 0 12/24/24 07:16 Medical Decision Making Quality:SDOH Health Related Social Needs: Health related social needs risk of homeless PFSH All Active Problems (Updated 12/24/24 @ 09:07 by Taran Tellez MD) Urticaria (Acute) Acute exacerbation of chronic heart failure (Acute) Migraine (Chronic) Hypotension (Acute) Sinusitis (Acute) Elevated troponin (Chronic) Influenza A (Acute) Acute sinusitis (Acute) CKD stage 3b, GFR 30-44 ml/min (Chronic) Cough (Acute) URI (upper respiratory infection) (Acute) Abdominal pain (Acute) Diarrhea (Acute) Atypical migraine (Acute) Otalgia, right ear (Acute) Acute otitis media of right ear with perforated tympanic membrane (Acute) Non-ST elevation [place] (NSTEMI) (Acute) Chronic kidney disease, stage III (moderate) (Acute) Hypermagnesemia (Acute) Acute hypokalemia (Acute) Ground glass opacity present on imaging of lung (Acute) Elevated troponin (Acute) CATIE (acute kidney injury) (Acute) Restrictive lung disease secondary to obesity (Acute) Allergic asthma (Acute) intermittent, controlled Dyspnea (Acute) Diarrhea (Acute) Congestive heart failure (Chronic) Sick euthyroidism (Acute) Carpal tunnel syndrome (Acute) GERD (gastroesophageal reflux disease) (Chronic) Bilateral renal artery stenosis (Acute) Encounter for weight loss counseling (Acute) Pulmonary emboli (Chronic) Arthritis of carpometacarpal (CMC) joint of left thumb (Acute) Avulsion fracture of right talus (Acute 12/30/21) Bilateral carpal tunnel syndrome (Acute) Paresthesia of hand, bilateral (Acute) Abnormal chest CT (Acute) Pulmonary hypertension (Chronic) Atypical chest pain (Acute) PSVT (paroxysmal supraventricular tachycardia) (Chronic) Acute non-ST elevation myocardial infarction (NSTEMI) (Acute) Elevated troponin I level (Acute) Right upper quadrant abdominal pain (Acute) Chronic heart failure with preserved ejection fraction (Chronic) Restless legs syndrome (Acute) Rhinitis, nonallergic, chronic (Acute) Tendinitis (Acute) Chest pain (Acute) Migraine headache without aura (Acute) Lichen sclerosus (Acute) MARYLOU (obstructive sleep apnea) (Chronic) Migraine with aura and without status migrainosus, not intractable (Acute 02/24/16) Medical History Myocardial infarction 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 Mild intermittent asthma Atherosclerosis of renal artery Heart failure Supraventricular tachycardia Atrial fibrillation Superior mesenteric artery stenosis (~03/10/22) see CTA abdomen and pelivs: 80% narrowing of SMA origin Renal artery stenosis (~03/10/22) right renal artery stenosis per CTA abomen/pelvis Hx of supraventricular tachycardia Infiltrate of lower lobe of left lung present on imaging study Acute non-ST elevation myocardial infarction (NSTEMI) COVID-19 Left lateral epicondylitis Arthritis of carpometacarpal (CMC) joint of left thumb Left wrist pain CHI (closed head injury) Acute bronchitis Non-ST elevation [place] (NSTEMI) Insomnia Asthma Overweight Endometriosis Depression Surgical History History of radiofrequency ablation (RFA) procedure for cardiac arrhythmia Hx of tubal ligation History of partial hysterectomy Family History Daughter Migraines Mother Hypertension Father Heart disease Social History Smoking/Tobacco Use Status: Never Smoking risk assessment performed?: Yes Alcohol Intake: never Drug use: Never Substance use type: does not use Housing: house Current gender identity: female Do you feel safe at home: Yes Do you feel safe in your relationship?: Yes Female Reproductive History Menstrual Menopause type: surgical History History 2 Para 2 Hx # Term Pregnancies Multiple births Hx # Pregnancies Ectopic pregnancies AB induced Hx Number of Living Children AB spontaneous
[2024-12-24 09:17] VITALS: BP 117/54; PULSE 54; RESP 16; O2SAT 96
== END 2024-12-24 09:17 | disposition home or self-care (01) ==
PROVIDERS: Emergency Provider General Practice; PCP Physician Assistant
DX: L50.8 Other urticaria (principal)
CPT/HCPCS: 99283 ×2; J7512

== ENCOUNTER 2024-12-29 14:15 | Outpatient (CLI) | payer BC, SELFPAY ==
--- NOTE | 2024-12-29 11:28 | DI.RAD_ITS ---
Exam(s) XR CHEST 2V PA LATERAL EXAM: XR CHEST 2V PA LATERAL CLINICAL HISTORY: ACUTE COUGH R05.1 PROGRESSIVE ACUTE COUGH TECHNIQUE: 2D digital imaging was performed. Two views. COMPARISON: CR,XR XR PORTABLE CHEST AP from 11/04/2024 FINDINGS: HEART: Enlarged. Aorta: Not dilated. PULMONARY VASCULATURE: Normal. MEDIASTINUM: Unremarkable. LUNGS: Clear. PLEURAL SPACE: No pleural effusion or pneumothorax. BONE:Unremarkable for age. SOFT TISSUES: Unremarkable. IMPRESSION: Cardiomegaly. No acute abnormality. DATA REPOSITORY: RADIATION DOSE DELIVERED:
== END 2024-12-29 14:35 ==
LOC: DI 14:15
PROVIDERS: PCP Physician Assistant; Visit Provider Physician Assistant
DX: R05.1 Acute cough (principal)
CPT/HCPCS: 71046

== ENCOUNTER 2025-01-02 07:27 | Emergency (ER) | payer BC, SELFPAY ==
[2025-01-02 07:34] VITALS: BP 104/57; PULSE 66; RESP 20; TEMP 36.5; O2SAT 96
--- NOTE | 2025-01-02 07:36 | W.ED.GENAD ---
Discharge Plan Disposition Patient Disposition: Home Discharge Details Clinical Impression: Right ankle sprain, Hx of falling Primary Care Provider: Polo Pearce ED Provider: Aaron Rodriguez Franklin Meds and New Rx's Prescriptions: New lidocaine [Lidoderm] 5 % adhesive patch,medicated 1 patch topical DAILY Qty: 15 0RF Rx Instructions: leave on most painful area for up to 12 hrs Continued ropinirole 1 mg tablet 1 mg PO BID Rx Instructions: @ 1600 and 2100 Wegovy 0.5 mg/0.5 mL pen injector 0.5 mg subcut QWEEK Rx Instructions: administer weeks 5 through 8 of therapy isosorbide mononitrate 30 mg tablet extended release 24 hr 30 mg PO DAILY amlodipine 2.5 mg tablet 2.5 mg PO DAILY ezetimibe 10 mg tablet 10 mg PO DAILY rosuvastatin 40 mg tablet 40 mg PO DAILY Aimovig Autoinjector 140 mg/mL auto-injector 140 mg subcut QMONTH Qty: 1 11RF topiramate [Topamax] 100 mg tablet 100 mg PO QHS Qty: 90 4RF Ubrelvy 100 mg tablet 100 mg PO ONCE PRN (Reason: headache) Qty: 16 12RF Rx Instructions: as a single dose; may repeat once in >=2 hours after first dose if needed fluticasone propionate [Flonase Allergy Relief] 9.9 ML spray,suspension 2 spray NS DAILY PRN duloxetine [Cymbalta] 60 mg capsule,delayed release(DR/EC) 60 mg PO DAILY Qty: 30 2RF albuterol sulfate 90 mcg/actuation HFA aerosol inhaler 2 puff inhalation Q4H PRN loratadine [Allergy Relief (loratadine)] 10 mg tablet 10 mg PO DAILY PRN nitroglycerin 0.4 mg tablet, sublingual 0.4 mg sublingual Q5M PRN Rx Instructions: do not exceed 3 doses per episode apixaban 5 mg tablet 5 mg PO BID Jardiance 10 mg tablet 10 mg PO DAILY ranolazine 1,000 mg tablet extended release 12 hr 1,000 mg PO BID montelukast 10 mg tablet 10 mg PO DAILY PRN gabapentin 600 mg tablet 600 mg PO QHS Qty: 90 3RF melatonin 10 mg capsule 10 mg PO HS PRN metoprolol succinate 25 mg tablet extended release 24 hr 25 mg PO DAILY Patient Comments: TAKE ONE TABLET BY MOUTH EVERY DAY aspirin 81 mg tablet,delayed release (DR/EC) 81 mg PO DAILY Patient Comments: TAKE ONE TABLET BY MOUTH EVERY DAY spironolactone 25 mg tablet 25 mg PO QAM Patient Comments: TAKE ONE TABLET BY MOUTH EVERY DAY famotidine 40 mg tablet 40 mg PO DAILY Qty: 10 0RF cetirizine 10 mg tablet 10 mg PO DAILY PRNQty: 30 0RF torsemide 20 mg Tablet 20 mg PO DAILY Qty: 90 0RF potassium chloride 20 mEq tablet extended release 40 meq PO BID Patient Comments: TAKE TWO TABLETS BY MOUTH TWICE A DAY omeprazole 40 mg capsule,delayed release(DR/EC) 40 mg PO DAILY Patient Comments: TAKE ONE CAPSULE BY MOUTH EVERY DAY Discharge Instructions Instructions: Ankle Sprain ED Additional Instructions: You are seen in the emergency department following your fall. Your x-rays were reassuring with 1 exception. Your ankle x-ray showed concern for the possibility of a small fracture for which you are receiving a walking boot. Please call the podiatry team for follow-up. You may bear weight as tolerated. Please return to the emergency department if develop nausea or vomiting that does not stop. For your pain please take medications as follows: 1. Take acetaminophen (Tylenol), 1,000 mg (two 500 mg tabs) every 6 hours Referrals: Delmi Caballero DPM [[facility], Podiatry] Discharge Data Discharge Date/Time-TO BE ENTERED AT DEPARTURE: 01/02/25 10:26 HPI General Date/Time Provider Initiated Documentation: 01/02/25 07:36. HPI Narrative: MDM Primary survey intact. Reassuring shock index. On secondary survey patient has generalized right-sided tenderness for which she will undergo radiographs. No head strike nor loss of consciousness to suggest benefit from CT head. [place] Head CT Criteria Major Criteria GCS < 15 : [No] Open or depressed skull Fx: [No] Sign of Basilar Skull Fx: [No] > 2 Episodes Vomiting: [No] Anticoagulation: [No] Age > 65: [No] Minor Criteria Retrograde Amnesia >30min: [No] Dangerous Mechanism: [No] Per [place] head CT rules, CT head not obtained. The patient had a GCS of 15, no open/depressed skull fracture, no signs of basilar skull fracture (hemotympanum, raccoon eyes, zayas's sign, CSF Stanton/Rhinorrhea), no vomiting, and is less than 65 years of age. No midline cervical spinal tenderness to suggest benefit from CT cervical spine. Per Nexus criteria, cervical CT not obtained. The patient had no c-spine midline tenderness, no evidence of intoxication, was AAOx3, had no focal neurological deficits, and no painful distracting injuries. Patient is able to touch her right hand to her contralateral left shoulder so I am not concern for shoulder dislocation. Equal breath sounds so doubt pneumothorax however will obtain chest x-ray given right sided rib tenderness to ensure patient does not have any rib fractures. Based on mechanism of injury and lack of hypoxia will defer cross-sectional imaging if patient has a reassuring chest x-ray. Patient has been ambulatory since her injury without difficulties so my suspicion is low for any acute osseous abnormalities in her hip however given pain will obtain screening x-ray. No lacerations to suggest benefit from tetanus immunization. No preceding chest pain to suggest ACS so we will defer ECG. In the absence of shortness of breath that preceded her fall my suspicion is low for PE so I did not send a D-dimer. Patient has not been vomiting to suggest benefit from labs. Right foot with no midfoot instability to suggest Lisfranc injury. No right lateral foot tenderness to suggest Lopez fracture. Patient can straight leg raise on the right so not suspicious for quadriceps tendon injury. No pain or proportion to suggest necrotizing soft tissue infection. Will treat pain with acetaminophen and reassess. 9:47 AM Patient had reassuring radiographs. Her right ankle radiograph was concerning for possible avulsion injury adjacent to her lateral malleolus where she was tender. I was in touch with Dr. Benites from podiatry. Will make patient weightbearing as tolerated in a short walking boot. Patient subsequently developed abdominal pain. She said that it might have been from movements associate with x-rays. I reexamined her abdomen. She has a soft nontender abdomen with no rebound or guarding. Will treat with ondansetron and complete p.o. and ambulatory trial. 2:55 PM I have asked health unit control worker Melanie to have the patient added to the podiatry follow-up list. HPI This is a patient with a history of heart failure and hernia presenting with pain following a fall. The patient experienced a fall 2 days ago, on 12/31/2024, while carrying groceries in the dark. The incident occurred when she tripped over an object she had forgotten about, causing her to lose balance and fall forward. Her right side bore the brunt of the impact, resulting in discomfort and pain. She describes a twisting sensation in her right foot, with pain extending up to her ankle. Additionally, she reports pain in her knee, shoulder, elbow, and wrist. She did not sustain any head injuries or loss of consciousness during the fall. Apart from a minor scrape on her knee, she has no other cuts or wounds. She also reports feeling nauseous but is uncertain if this is related to the fall. The patient has a known diagnosis of heart failure, which affects her breathing, but she is unsure if there has been any change in her respiratory status since the fall. Exam General: Well-appearing in no acute distress speaking in complete sentences. Head: Normocephalic, atraumatic. Eye:[Pupils equal, round reactive to light.] Extraocular eye movements intact. No conjunctival injection. No scleral icterus. Ear, nose, mouth, throat: Grossly normal inspection. Normal voice, handling secretions normally. Neck: Trachea midline. No midline cervical spinal tenderness. Cardiovascular: Well-perfused distal extremities. Back: No midline thoracic or lumbar spinal tenderness. No step-offs. No deformities. Respiratory: Nonlabored respiration. Equal breath sounds bilaterally. Chest wall: Right-sided chest wall tenderness. No flail segments. No ecchymosis. No lacerations. Gastrointestinal: Nondistended abdomen. Musculoskeletal: Right upper extremity with tenderness at the right shoulder, lateral aspect. Patient is able to touch her right hand to her contralateral left shoulder. No right clavicular tenderness. Patient is able to flex her right shoulder to approximately 90 degrees and extend her right shoulder to approximately 5 degrees. She can abduct her right shoulder to approximately 90 degrees. Right humerus elbow and forearm nontender intact range of motion. Patient has right wrist radial tenderness. No deformities nor ecchymosis. Preserved range of motion of right wrist. Right hand warm well-perfused intact sensation and motor function grossly radian, median, and ulnar nerve distributions. 2+ radial pulse. Left upper extremity nontender full range of motion Left lower extremity nontender full range of motion Right lower extremity tenderness at the right hip. Patient is able to extend her leg off the bed with 5 out of 5 strength. She has tenderness on the lateral joint line of her right knee. She can straight leg raise. She has no significant laxity in valgus or varus stress testing. Negative anterior and posterior drawer tests. Right ankle with lateral tenderness. No signs of trauma. Right foot with midfoot dorsal tenderness. 5 out of 5 strength right foot dorsi and plantarflexion. Intact DP and PT pulses. Skin: Normal for age and race, grossly normal temperature and turgor. No acute rash. Neurologic: Alert and appropriate, no apparent acute deficits. Psychiatric: Mood and manner are appropriate. Grooming and personal hygiene are appropriate. Related Data Home Medications ?Medication ?Instructions ?Recorded ?Confirmed fluticasone propionate 50 2 spray NS DAILY PRN 12/23/16 01/02/25 mcg/actuation nasal spray,suspension (Flonase Allergy Relief) ropinirole 1 mg tablet 1 mg PO BID 06/12/20 01/02/25 duloxetine 60 mg capsule,delayed 60 mg PO DAILY #30 mg 08/19/20 01/02/25 release (Cymbalta) albuterol sulfate 90 mcg/actuation 2 puff inhalation Q4H PRN 05/30/21 01/02/25 aerosol inhaler loratadine 10 mg tablet (Allergy 10 mg PO DAILY PRN 05/30/21 01/02/25 Relief (loratadine)) nitroglycerin 0.4 mg sublingual 0.4 mg sublingual Q5M PRN 09/25/21 01/02/25 tablet melatonin 10 mg capsule 10 mg PO HS PRN 04/16/23 01/02/25 apixaban 5 mg tablet 5 mg PO BID 08/13/23 01/02/25 empagliflozin 10 mg tablet 10 mg PO DAILY 08/13/23 01/02/25 (Jardiance) ranolazine 1,000 mg 1,000 mg PO BID 08/13/23 01/02/25 tablet,extended release,12 hr montelukast 10 mg tablet 10 mg PO DAILY PRN 09/16/23 01/02/25 torsemide 20 mg tablet 20 mg PO DAILY #90 tabs 09/25/23 01/02/25 semaglutide (weight loss) 0.5 0.5 mg subcut QWEEK 01/19/24 01/02/25 mg/0.5 mL subcutaneous pen injector (Wegovy) gabapentin 600 mg tablet 600 mg PO QHS #90 tabs 03/14/24 01/02/25 potassium chloride 20 mEq 40 meq PO BID 04/21/24 01/02/25 tablet,extended release omeprazole 40 mg capsule,delayed 40 mg PO DAILY 04/22/24 01/02/25 release aspirin 81 mg tablet,delayed 81 mg PO DAILY 11/04/24 01/02/25 release metoprolol succinate 25 mg 25 mg PO DAILY 11/04/24 01/02/25 tablet,extended release 24 hr spironolactone 25 mg tablet 25 mg PO QAM 11/04/24 01/02/25 amlodipine 2.5 mg tablet 2.5 mg PO DAILY 11/13/24 01/02/25 erenumab-aooe 140 mg/mL 140 mg subcut QMONTH #1 mL 11/13/24 01/02/25 subcutaneous auto-injector (Aimovig Autoinjector) ezetimibe 10 mg tablet 10 mg PO DAILY 11/13/24 01/02/25 isosorbide mononitrate 30 mg 30 mg PO DAILY 11/13/24 01/02/25 tablet,extended release 24 hr rosuvastatin 40 mg tablet 40 mg PO DAILY 11/13/24 01/02/25 topiramate 100 mg tablet (Topamax) 100 mg PO QHS #90 tab-caps 11/13/24 01/02/25 ubrogepant 100 mg tablet (Ubrelvy) 100 mg PO ONCE PRN headache #16 11/13/24 01/02/25 tabs cetirizine 10 mg tablet 10 mg PO DAILY PRN #30 tabs 12/24/24 01/02/25 famotidine 40 mg tablet 40 mg PO DAILY #10 tabs 12/24/24 01/02/25 lidocaine 5 % topical patch 1 patch topical DAILY #15 ea 01/02/25 (Lidoderm) Previous Rx's ?Medication ?Instructions ?Recorded duloxetine 60 mg capsule,delayed 60 mg PO DAILY #30 mg 08/19/20 release (Cymbalta) torsemide 20 mg tablet 20 mg PO DAILY #90 tabs 09/25/23 gabapentin 600 mg tablet 600 mg PO QHS #90 tabs 03/14/24 erenumab-aooe 140 mg/mL 140 mg subcut QMONTH #1 mL 11/13/24 subcutaneous auto-injector (Aimovig Autoinjector) topiramate 100 mg tablet (Topamax) 100 mg PO QHS #90 tab-caps 11/13/24 ubrogepant 100 mg tablet (Ubrelvy) 100 mg PO ONCE PRN headache #16 11/13/24 tabs cetirizine 10 mg tablet 10 mg PO DAILY PRN #30 tabs 12/24/24 famotidine 40 mg tablet 40 mg PO DAILY #10 tabs 12/24/24 lidocaine 5 % topical patch 1 patch topical DAILY #15 ea 01/02/25 (Lidoderm) Allergies Allergy/AdvReac Type Severity Reaction Status Date / Time clobetasol AdvReac Intermediate Skin Rash Verified 01/02/25 07:36 codeine AdvReac Mild Not able Verified 01/02/25 07:36 to sleep ibuprofen AdvReac migraines Unverified 01/02/25 07:36 environmental Allergy Mild sneezing/triggers Uncoded 01/02/25 07:36 her asthma General Stated Complaint: Fall/Non TraumaCriteria MIKAELA: 4 Course Vital Signs Vital signs: Vital Signs Temperature 36.5 C 01/02/25 07:34 Pulse 66 01/02/25 07:34 Respiratory Rate 20 01/02/25 07:34 Blood Pressure 104/57 L 01/02/25 07:34 Pulse Oximetry 96 01/02/25 07:34 Temperature 36.5 C 01/02/25 07:34 Temperature Source Tympanic 01/02/25 07:34 Pulse 66 01/02/25 07:34 Respiratory Rate 20 01/02/25 07:34 Blood Pressure 104/57 L 01/02/25 07:34 Blood Pressure Position Sitting 01/02/25 07:34 Pulse Oximetry 96 01/02/25 07:34 Oxygen Delivery Method Room Air 01/02/25 07:34 Oxygen Flow Rate 0 01/02/25 07:34 Pain Level 10 01/02/25 07:34 Medical Decision Making Quality:SDOH Health Related Social Needs: Health related social needs risk of homeless PFSH All Active Problems (Updated 01/02/25 @ 09:48 by Aaron Rodriguez MD) Hx of falling (Acute) Right ankle sprain (Acute) Urticaria (Acute) Acute exacerbation of chronic heart failure (Acute) Migraine (Chronic) Hypotension (Acute) Sinusitis (Acute) Elevated troponin (Chronic) Influenza A (Acute) Acute sinusitis (Acute) CKD stage 3b, GFR 30-44 ml/min (Chronic) Cough (Acute) URI (upper respiratory infection) (Acute) Abdominal pain (Acute) Diarrhea (Acute) Atypical migraine (Acute) Otalgia, right ear (Acute) Acute otitis media of right ear with perforated tympanic membrane (Acute) Non-ST elevation UT (NSTEMI) (Acute) Chronic kidney disease, stage III (moderate) (Acute) Hypermagnesemia (Acute) Acute hypokalemia (Acute) Ground glass opacity present on imaging of lung (Acute) Elevated troponin (Acute) CATIE (acute kidney injury) (Acute) Restrictive lung disease secondary to obesity (Acute) Allergic asthma (Acute) intermittent, controlled Dyspnea (Acute) Diarrhea (Acute) Congestive heart failure (Chronic) Sick euthyroidism (Acute) Carpal tunnel syndrome (Acute) GERD (gastroesophageal reflux disease) (Chronic) Bilateral renal artery stenosis (Acute) Encounter for weight loss counseling (Acute) Pulmonary emboli (Chronic) Arthritis of carpometacarpal (CMC) joint of left thumb (Acute) Avulsion fracture of right talus (Acute 12/30/21) Bilateral carpal tunnel syndrome (Acute) Paresthesia of hand, bilateral (Acute) Abnormal chest CT (Acute) Pulmonary hypertension (Chronic) Atypical chest pain (Acute) PSVT (paroxysmal supraventricular tachycardia) (Chronic) Acute non-ST elevation myocardial infarction (NSTEMI) (Acute) Elevated troponin I level (Acute) Right upper quadrant abdominal pain (Acute) Chronic heart failure with preserved ejection fraction (Chronic) Restless legs syndrome (Acute) Rhinitis, nonallergic, chronic (Acute) Tendinitis (Acute) Chest pain (Acute) Migraine headache without aura (Acute) Lichen sclerosus (Acute) MARYLOU (obstructive sleep apnea) (Chronic) Migraine with aura and without status migrainosus, not intractable (Acute 02/24/16) Medical History Myocardial infarction 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 Mild intermittent asthma Atherosclerosis of renal artery Heart failure Supraventricular tachycardia Atrial fibrillation Superior mesenteric artery stenosis (~03/10/22) see CTA abdomen and pelivs: 80% narrowing of SMA origin Renal artery stenosis (~03/10/22) right renal artery stenosis per CTA abomen/pelvis Hx of supraventricular tachycardia Infiltrate of lower lobe of left lung present on imaging study Acute non-ST elevation myocardial infarction (NSTEMI) COVID-19 Left lateral epicondylitis Arthritis of carpometacarpal (CMC) joint of left thumb Left wrist pain CHI (closed head injury) Acute bronchitis Non-ST elevation UT (NSTEMI) Insomnia Asthma Overweight Endometriosis Depression Surgical History History of radiofrequency ablation (RFA) procedure for cardiac arrhythmia Hx of tubal ligation History of partial hysterectomy Family History Daughter Migraines Mother Hypertension Father Heart disease Social History Smoking/Tobacco Use Status: Never Smoking risk assessment performed?: Yes Alcohol Intake: never Drug use: Never Substance use type: does not use Housing: house Current gender identity: female Do you feel safe at home: Yes Do you feel safe in your relationship?: Yes Female Reproductive History Menstrual Menopause type: surgical History History 2 Para 2 Hx # Term Pregnancies Multiple births Hx # Pregnancies Ectopic pregnancies AB induced Hx Number of Living Children AB spontaneous
[2025-01-02] MEDS: Acetaminophen 500 MG TAB 1000 MG PO (08:07)
--- NOTE | 2025-01-02 08:36 | DI.RAD_ITS ---
Exam(s) XR KNEE RT 3V AP,LAT,TOMASZ EXAM: XR KNEE RT 3V AP,LAT,TOMASZ CLINICAL HISTORY: Right knee pain. TECHNIQUE: 2D digital imaging was performed. COMPARISON: No exams were available for comparison FINDINGS: 3 views No evidence of fracture or joint effusion. No obvious degenerative changes. No osseous lesions. No radiopaque foreign bodies. IMPRESSION: No significant osseous findings in the knee. DATA REPOSITORY: RADIATION DOSE DELIVERED:
--- NOTE | 2025-01-02 08:36 | DI.RAD_ITS ---
Exam(s) XR CHEST 2V PA LATERAL EXAM: XR CHEST 2V PA LATERAL CLINICAL HISTORY: Fall right-sided chest pain. TECHNIQUE: 2D digital imaging was performed. COMPARISON: CR XR CHEST 2V PA LATERAL from 12/29/2024 FINDINGS: 2 views: Heart size is upper normal. The mediastinum is not widened. Lungs are clear. No infiltrates nor pleural effusions. IMPRESSION: No acute pulmonary findings.No significant change compared to 12/29 DATA REPOSITORY: RADIATION DOSE DELIVERED:
--- NOTE | 2025-01-02 08:43 | DI.RAD_ITS ---
Exam(s) XR FOOT RT COMPLETE EXAM: XR FOOT RT COMPLETE h CLINICAL HISTORY: Right foot pain. TECHNIQUE: 2D digital imaging was performed. COMPARISON: CR XR FOOT RT COMPLETE from 12/30/2021 FINDINGS: 3 views No evidence of acute fracture or diastasis of the Lisfranc joint. Bone density normal. No osseous lesions. No degenerative changes nor erosions evident. IMPRESSION: No acute osseous findings in the right foot DATA REPOSITORY: RADIATION DOSE DELIVERED:
--- NOTE | 2025-01-02 08:45 | DI.RAD_ITS ---
Exam(s) XR ANKLE RT COMPLETE EXAM: XR ANKLE RT COMPLETE CLINICAL HISTORY: Right ankle pain. TECHNIQUE: 2D digital imaging was performed. COMPARISON: CR XR ANKLE LT COMPLETE from 10/22/2023 FINDINGS: 3 views There is a small calcific density immediately subjacent to the lateral malleolus which measures 2.5 x 2.0 mm, either accessory ossicle or avulsion injury. There is no prominent overlying soft tissue swelling. Bone density normal. 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 Small enthesophyte at the posterior heel ease calcaneus insertion site. IMPRESSION: Findings as above. 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 DATA REPOSITORY: RADIATION DOSE DELIVERED:
--- NOTE | 2025-01-02 08:52 | DI.RAD_ITS ---
Exam(s) XR WRIST RT COMPLETE EXAM: XR WRIST RT COMPLETE CLINICAL HISTORY: Right wrist pain. TECHNIQUE: 2D digital imaging was performed. COMPARISON: CR XR WRIST LT COMP NAVICULAR from 02/03/2021 FINDINGS: 3 views No evidence of acute fracture or dislocation nor significant ulnar variance. Scaphoid and scapholunate distance are normal. Bone density normal. No osseous lesions nor erosions. No radiopaque foreign bodies. IMPRESSION: No acute osseous findings in the wrist. DATA REPOSITORY: RADIATION DOSE DELIVERED:
--- NOTE | 2025-01-02 08:53 | DI.RAD_ITS ---
Exam(s) XR SHOULDER RT COMPLETE 2+V EXAM: XR SHOULDER RT COMPLETE 2+V CLINICAL HISTORY: Right shoulder pain. TECHNIQUE: 2D digital imaging was performed. COMPARISON: CR,XR XR CHEST 1V IN DI DEPT from 04/20/2024 CR,XR XR PORTABLE CHEST AP from 11/04/2024 FINDINGS: Four views No evidence of acute fracture or dislocation of the glenohumeral joint and no degenerative changes. No soft tissue calcifications and the subacromial space appears unremarkable. There is a nonacute deformity at the midshaft of the right clavicle which was not evident on prior chest x-rays, having the appearance of nonunion fracture at this level. The AC joint is not distracted. IMPRESSION: No acute fractures. Nonacute deformity at the midshaft of the right clavicle noted. DATA REPOSITORY: RADIATION DOSE DELIVERED:
--- NOTE | 2025-01-02 08:53 | DI.RAD_ITS ---
Exam(s) XR PELVIS AP EXAM: XR PELVIS AP CLINICAL HISTORY: Right-sided hip pain. TECHNIQUE: 2D digital imaging was performed. COMPARISON: No exams were available for comparison FINDINGS: Single AP view pelvis No evidence of pelvic nor hip fractures. SI joints unremarkable. Bone density normal. No osseous lesions. IMPRESSION: No significant osseous findings in the pelvis and hips. DATA REPOSITORY: RADIATION DOSE DELIVERED:
--- NOTE | 2025-01-02 09:01 | DI.RAD_ITS ---
Exam(s) XR FEMUR RT EXAM: XR FEMUR RT CLINICAL HISTORY: Right proximal femur pain. TECHNIQUE: 2D digital imaging was performed. COMPARISON: No exams were available for comparison FINDINGS: Two views-AP and lateral No evidence of right hip nor right femur fracture. Bone density normal. No osseous lesions. No degenerative changes evident in the right hip and knee and there is no knee joint effusion evident. IMPRESSION: No evidence of femur fracture. DATA REPOSITORY: RADIATION DOSE DELIVERED:
[2025-01-02] MEDS: Ondansetron O.D.T. 4 MG TABEF PO (09:50)
== END 2025-01-02 10:26 | disposition home or self-care (01) ==
PROVIDERS: Emergency Provider Emergency Medicine; PCP Physician Assistant
DX: S93.401A Sprain of unspecified ligament of right ankle, initial encounter (principal); W10.9XXA Fall (on) (from) unspecified stairs and steps, initial encounter
CPT/HCPCS: 99283 ×2; 73552; 73562; 71046; 72170; 73030; 73110; 73610; 73630

== ENCOUNTER → 2025-01-09 00:48 | Outpatient (CLI) | payer BC, SELFPAY ==
--- NOTE | 2025-01-09 06:15 | DI.RAD_ITS ---
Exam(s) XR ANKLE RT COMPLETE EXAM: XR ANKLE RT COMPLETE CLINICAL HISTORY: Right ankle pain/sprain,[id number]. TECHNIQUE: 2D digital imaging was performed of the right ankle. Three images were obtained. AP, lateral and oblique views were obtained. COMPARISON: CR XR ANKLE RT COMPLETE from 01/02/2025 FINDINGS: BONES: No acute fracture is present. No bony destructive lesion is seen. There is a well corticated osseous density adjacent to the lateral malleolus which appears old. JOINTS: The ankle mortise is normally aligned. SOFT TISSUE: Normal. IMPRESSION: There is no acute abnormality. DATA REPOSITORY: RADIATION DOSE DELIVERED:
== END ==
LOC: DI 00:48
PROVIDERS: PCP Physician Assistant; Visit Provider Podiatrist
DX: M25.571 Pain in right ankle and joints of right foot (principal)
CPT/HCPCS: 73610